=== PATIENT | male | born 1955 | race Caucasian/White ===

== ENCOUNTER → 2017-10-25 15:40 | Outpatient (CLI) | payer BC, SELFPAY ==
[2017-10-23 13:27] LABS: BUN 39 mg/dL (7-18); Creatinine, Serum 1.03 mg/dL (0.70-1.30); EST Glomerular Filtration Rate 78 mL/min (>60); Est Glom Filt Rate - Afr Amer 95 mL/min (>60)
--- NOTE | 2017-10-25 15:42 | CT_ITS ---
STUDY: CT TEMPORAL BONES WITH CONTRAST - ATTN: I.A.C. S REASON FOR EXAM: Male, 61 years old. [facility] NEUROPATHY BLURRY VISION LEFT EYE RADIATION DOSAGE (If Supplied By Facility): CTDIvol = ( 29.38 ) mGy, DLP = ( 661.50 ) mGycm TECHNIQUE: The patient was scanned in a multi detector CT scanner. Transaxial imaging was performed with the administration of 100CC ml of Isovue 250 intravenous contrast material. Sagittal and coronal images were reconstructed. Individualized dose optimization techniques were used for this CT. COMPARISON: None. FINDINGS: RIGHT TEMPORAL BONE Normal right internal auditory canal. There is no demonstrated enhancing abnormality. There is mild maxillary sinus disease. There is mild ethmoid sinus disease. Normal visualized ossicles and tympanic cavity. Normal right cochlea and semicircular canals. Normal vestibular aqueduct . Normal right petrous carotid artery. Normal right jugular fossa. Normal right mastoid air cells. Normal right petrous apex. LEFT TEMPORAL BONE Normal left internal auditory canal. There is no demonstrated enhancing abnormality. Normal visualized ossicles and tympanic cavity. Normal left cochlea and semicircular canals. Normal vestibular aqueduct. Normal left petrous carotid artery. Normal right jugular fossa. Normal left mastoid air cells. Normal left petrous apex. CT/Sinus/Facial Bone W/WO Contras IMPRESSION: Normal enhanced CT examination of the bilateral temporal bones (I.A.C.'s). Electronically Signed: Paco Moore MD at 18:43 EST , Service support ,
--- NOTE | 2017-10-25 15:42 | CT_ITS ---
STUDY: CT BRAIN WITHOUT CONTRAST REASON FOR EXAM: Male, 61 years old. OPTIC NEUROPATHY BLURRY VISION LEFT EYE RADIATION DOSAGE (If Supplied By Facility): CTDIvol = ( 44.99 ) mGy, DLP = ( 1535.98 ) mGycm TECHNIQUE: Transaxial CT imaging of the brain was performed without administration of intravenous contrast material. COMPARISON: 06.08.05 FINDINGS: Normal soft tissue structures. Normal calvarium. There are calcifications noted in the distal vertebral arteries. There are calcifications noted in the cavernous carotid arteries. This is consistent for atherosclerotic disease. There is mild cerebral atrophy with widening of the extra-axial spaces and ventricular dilatation. There are areas of decreased attenuation within the white matter tracts of the supratentorial brain, consistent with microvascular disease changes. Normal basal ganglia and thalami. Normal brainstem. There is mild cerebellar atrophy. There is no intracranial hemorrhage. There are no findings of an acute ischemic infarction. There is left mastoid air cell disease. There is mild maxillary sinus disease. CT/Brain/Head W/WO Contrast IMPRESSION: Chronic involutional changes of the brain. There are no acute findings. Electronically Signed: Paco Moore MD at 17:31 EST , Service support ,
== END ==
PROVIDERS: Family Provider Physician Assistant; PCP Physician Assistant; Visit Provider Ophthalmology
DX: H46.8 Other optic neuritis (principal)
CPT/HCPCS: 36415; 70470; 70488; 82565; 84520; Q9967

== ENCOUNTER 2017-12-14 09:30 | Outpatient (RCR) | payer OTHER, SELFPAY ==
--- NOTE | 2017-11-22 15:48 | HP.OTEVAL ---
Patient's Visit Information SHARON QUINONES is a 62 year old M, referred to Occupational Therapy by DR.MLYKIN Sandra, with a diagnosis of Fx Lower End L Radius, L wrist pain. Date of Evaluation: 11/22/17 Occupational Therapist: Isabella Guevara - Subjective Subjective: Pt seen for initial occupational therapy evaluation for decreased strength and ROM of L hand/wrist from fx of lower end radius after fall over cord at work. Pt had accidental fall 08/15/17 with L wrist fx. He had a cast for 2 wks then went in for surgery for ORIF plate and 5 screws to fix lower end L radius middle august. Pt is now out of his brace and needs to gain strength and ROM of L wrist/hand. Pt is R hand dominent. He is indep w/ all basic ADLs/IADLs. He requires a lot of bilateral hand use for his job. 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 - ROM Wrist: R 50/112, L 40/119 ROM Comments: able to make composite fist, and complete opposition L wrist/hand - Strength Pediatric Sports Medicine Specialist: R 35#, L 20# Tripod Pinch: R 6#, L 2# Strength Comments: Pt demo decreased L hand box printing machine operator/pinch strength. - Edema Other: Edema noted L wrist, moderate swelling. - Sensation Sensation Comments: Tingling in L thumb and 2nd digit. - DASH-Disabilities of Arm, Shoulder& Hand DASH Sum: 65 - Goals Goal:: Pt will progress w/ L hand box printing machine operator strength by 10# to increase functional use of L hand and open all containers without difficulty. Goal:: Pt will progress w/ L wrist flexion by 5' and extension by 5' to increase functional use of L wrist for BADLs/IADLs. Goal:: Pt will demo no pain greater than 1/10 of L wrist/hand by d/c from OT Goal:: Pt will be educated on L hand/wrist HEP with good understanding and demo 100%x. Goal:: Pt will be educated on scar mngmt techniques with good understanding and demo 100%x. - Rehabilitation General Assessment: Pt demo decreased L hand/wrist ROM and box printing machine operator strength with tingling of L thumb, 2nd digit and moderate edema L wrist all indicating a need for occupational therapy services to increase pts L hand/wrist strength and ROM and educate on HEP and scar mngmt techniques to increase pts quality of life and prepare for return back to work. Rehabilitation Potential: Excellent - Anticipated Interventions Anticipated Interventions: A/AAROM/PROM, Strengthening, Scar Care, Massage, Modalities, Joint Protection/Energy Conservation, Fine Motor Coord/Daniel, Education re Skin Care and Precautions, Education re Self Massage Techniques, Home Program - Visit Plan Frequency: 3x /Week Duration: 4 Weeks General Plan: increase ROM L wrist, increase L wrist/hand strength, educate on L UE HEP and scar mgnmt techniques TEXT: Thank you for the opportunity to evaluate your patient. For Medicare and Medicare HMO plans, please review the plan of care and approve it. It will need to be FAXED BACK to us at [phone] for Medicare purposes. Please let me know if there are questions or concerns regarding this plan of care. Physician Signature: Date:
--- NOTE | 2017-12-17 09:47 | HP.OTDCSUM_ITS ---
HP - OT D/C Summary It has been my pleasure to treat SHARON QUINONES under orders from Will Peguero, for the diagnosis of Fx Lower End L Radius, L wrist pain for a total of 11 visit(s). Please see the following information for a summary of their discharge status. - Overall Improvement % Improvement: 95 - Objective Objective/Function: left radial deviation 20 ulnar deviation 15. left wrist 60/ 45. left surface plate inspector 40#. left lat. pinch 10#. left tripod pinch 6# - Goals Patient Goals: Regain Strength, Return to Work, Decrease Swelling/Stiffness, Improve Fine Motor Skills, Use Hand/Wrist/Arm Normally Again, Decrease Tingling/ Numbness, Increase ROM, Resume Hobbies Goal:: Pt will progress w/ L hand surface plate inspector strength by 10# to increase functional use of L hand and open all containers without difficulty. Goal:: Pt will progress w/ L wrist flexion by 5' and extension by 5' to increase functional use of L wrist for BADLs/IADLs. Goal:: Pt will demo no pain greater than 1/10 of L wrist/hand by d/c from OT Goal:: Pt will be educated on L hand/wrist HEP with good understanding and demo 100%x. Goal:: Pt will be educated on scar mngmt techniques with good understanding and demo 100%x. - Plan Plan: D/C - D/C Information Discharge Comments: pt was seen for 11 OT visits- pt states he has gained ind. with all BADLS and IADLS- pt feels he is ready to return to work- pt demo a increase in ROM and strength and has met goals in OT and is D/C at this time If there are questions or concerns regarding this patient's occupational therapy , please fell free to call me at [phone]. Thank you for the referral of this patient. Sincerely, Florencia Camarena, OTR/L, CHT
== END 2017-12-14 19:00 | disposition home or self-care (01) ==
LOC: OT 09:30
PROVIDERS: Family Provider Physician Assistant; PCP Physician Assistant; Visit Provider Orthopaedic Surgery
DX: S52.572D Other intraarticular fracture of lower end of left radius, subsequent encounter for closed fracture with routine healing (principal); M25.532 Pain in left wrist
CPT/HCPCS: 97110; 97165; 97168; 97530

== ENCOUNTER → 2018-01-15 14:48 | Outpatient (CLI) | payer BC, SELFPAY ==
--- NOTE | 2018-01-15 14:50 | VDLE_ITS ---
Reason For Study: pain RIGHT LEFT GSV is normal. GSV is normal. CFV is compressible, spontaneous, phasic, CFV is compressible, spontaneous, phasic, competent and demonstrates normal competent, and demonstrates normal augmentation. augmentation. FV is compressible, spontaneous, phasic, FV is compressible, spontaneous, phasic, competent and demonstrates normal competent and demonstrates normal augmentation. augmentation. POP V is compressible, spontaneous, phasic, POP V is compressible, spontaneous, phasic, competent and demonstrates normal competent and demonstrates normal augmentation. augmentation. T/P Trunk is compressible. T/P Trunk is compressible. PTV is compressible. PTV is compressible. RT PerV is compressible. LT PerV is compressible. Procedure Exam performed in department. The exam was diagnostic. A preliminary report was called and/or faxed to [facility]. Interpretation Summary Deep veins of the lower extremities are bilaterally patent and compressible segmentally. There is no evidence of deep vein thrombosis on either side. Valvular competence appears intact within the proximal deep venous systems bilaterally. The greater saphenous veins appear bilaterally patent and compressible segmentally. Ordering Physician: Florencia Brian Performed By: Solitario Pagan RVT
== END ==
PROVIDERS: Family Provider Physician Assistant; PCP Physician Assistant; Visit Provider Physician Assistant Medical
DX: R60.0 Localized edema (principal); M79.605 Pain in left leg; M79.604 Pain in right leg
CPT/HCPCS: 93970

== ENCOUNTER → 2018-02-04 10:15 | Outpatient (CLI) | payer BC, SELFPAY ==
--- NOTE | 2018-02-04 10:15 | DT_ITS ---
This patient was seen during an EMR downtime January 28, 2018 - February 04, 2018. This patient may have a combination of paper and electronic documentation or all paper documentation. All documentation is viewable within the e-chart portion of [facility] for each patient visit.
[2018-02-04 11:11] LABS: Anion Gap 4 (5-15); BUN 45 mg/dL (7-18); BUN/Creat Ratio 35.2 RATIO (10-20); Calcium,Total 8.3 mg/dL (8.5-10.1); Chloride 104 mmol/L (98-107); Creatinine, Serum 1.28 mg/dL (0.70-1.30); EST Glomerular Filtration Rate 61 mL/min (>60); Est Glom Filt Rate - Afr Amer 74 mL/min (>60); Glucose 118 mg/dL (74-106); Potassium 4.9 mmol/L (3.5-5.1); Sodium Level 138 mmol/L (136-145)
== END ==
PROVIDERS: Internal Medicine Cardiovascular Disease; Family Provider Physician Assistant; PCP Physician Assistant; Visit Provider Physician Assistant Medical
DX: I21.4 Non-ST elevation (NSTEMI) myocardial infarction (principal); I25.10 Atherosclerotic heart disease of native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 angina pectoris; I42.9 Cardiomyopathy, unspecified; Z95.1 Presence of aortocoronary bypass graft; I11.0 Hypertensive heart disease with heart failure; I50.9 Heart failure, unspecified
CPT/HCPCS: 36415; 80048

== ENCOUNTER → 2018-04-27 09:19 | Outpatient (CLI) | payer BC, SELFPAY ==
[2018-04-27 10:28] LABS: Anion Gap 8 (5-15); BUN 73 mg/dL (7-18); BUN/Creat Ratio 48.3 RATIO (10-20); Calcium,Total 8.4 mg/dL (8.5-10.1); Chloride 108 mmol/L (98-107); Creatinine, Serum 1.51 mg/dL (0.70-1.30); EST Glomerular Filtration Rate 50 mL/min (>60); Est Glom Filt Rate - Afr Amer 61 mL/min (>60); Glucose 98 mg/dL (74-106); Potassium 4.8 mmol/L (3.5-5.1); Sodium Level 140 mmol/L (136-145)
== END ==
PROVIDERS: Family Provider Physician Assistant; PCP Physician Assistant; Visit Provider Internal Medicine Cardiovascular Disease
DX: I42.9 Cardiomyopathy, unspecified (principal); I50.9 Heart failure, unspecified
CPT/HCPCS: 36415; 80048

== ENCOUNTER → 2018-05-27 15:57 | Outpatient (CLI) | payer BC, SELFPAY ==
[2018-05-27 17:11] LABS: Absolute Lymphocyte Count 0.89 X10^3/ul (0.83-4.51); Absolute Neutrophil Count 3.8 X10^3/uL (2.0-7.7); Basophil# 0.03 X10^3/uL; Basophil% 0.5 % (0-1); Eosinophil# 0.16 X10^3/uL; Eosinophils% 2.9 % (0-5); Hemoglobin 11.4 g/dl (13.0-16.5); Lymphocyte # 0.89 X10^3/ul (4.0); Lymphocyte % 16.2 % (19-41); Mean Corp Hgb Conc 31.7 g/gl (32-36); Mean Corpuscular Hgb 27.9 pg (27.0-32.0); Mean Corpuscular Volume 88.2 fL (80-94); Mean Platelet Vol. 9.6 fl (6.2-12.0); Monocyte# 0.62 X10^3/uL; Monocyte% 11.3 % (0-10); Neutrophil # 3.79 X10^3/uL (2.7-7.7); Neutrophil % 69.1 % (47-70); Platelet Count 241 K/mm3 (150-450); RBC Distribution Width CV 14.2 % (11.6-14.6); RBC Distribution Width SD 46.1 fl (35.1-43.9); Red Blood Count 4.08 M/mm3 (4.6-6.2); White Blood Count 5.5 K/mm3 (4.4-11.0)
[2018-05-27 17:14] LABS: POSITIVE COUNT NO; POSITIVE DIFFERENTIAL NO; POSITIVE MORPHOLOGY NO
[2018-05-27 17:49] LABS: Anion Gap 9 (5-15); BUN 73 mg/dL (7-18); BUN/Creat Ratio 49.3 RATIO (10-20); Calcium,Total 8.7 mg/dL (8.5-10.1); Chloride 104 mmol/L (98-107); Creatinine, Serum 1.48 mg/dL (0.70-1.30); EST Glomerular Filtration Rate 51 mL/min (>60); Est Glom Filt Rate - Afr Amer 62 mL/min (>60); Glucose 140 mg/dL (74-106); Magnesium 2.5 mg/dL (1.6-2.6); Potassium 4.9 mmol/L (3.5-5.1); Sodium Level 140 mmol/L (136-145)
[2018-05-27 18:04] LABS: BNP,B-Type NATRIURETIC PEPTIDE 1265.9 pg/mL (0-100)
== END ==
PROVIDERS: Family Provider Physician Assistant; PCP Physician Assistant; Referring Provider Physician Assistant Medical; Visit Provider Physician Assistant Medical
DX: I50.9 Heart failure, unspecified (principal); R60.9 Edema, unspecified
CPT/HCPCS: 36415; 80048; 83735; 83880; 85025

== ENCOUNTER 2018-05-29 17:00 | Emergency (ER) | payer OTHER, BC, SELFPAY ==
[2018-05-29 17:01] VITALS: BP 151/61; PULSE 58; RESP 16; TEMP 37; O2SAT 98; BMI 26.0
--- NOTE | 2018-05-29 17:50 | ED.VISSUMM ---
- ER Visit Summary Date of Service: 05/29/18 Chief Complaint: Right long finger laceration repair wound evaluation History of Present Illness: The patient is a 62 M past medical history of insulin-dependent diabetes. Patient had an injury to his right long finger 9-10 days ago. This was a workers comp injury. The laceration to the right long finger along the palmar aspect also with a subungual hematoma. He was treated at [facility] at [facility]. Nurse practitioner closed the wound. States it was doing well however the stitches are starting to come apart. He is not supposed to have those removed until next Sunday. He denies any significant fever or redness. He states the swelling is coming down. I gave him a tetanus shot when he had this initially treated. He also had an x-ray that he states was negative. Physical Examination: Well-appearing middle-age male. Vital signs are stable afebrile. HEENT exam unremarkable. Lungs clear to auscultation. Heart regular rhythm no murmur. Abdomen soft nontender. He is moving all 4 extremities. They are neurovascularly intact. His right long finger has a laceration repair of the palmar distal tip of the right long finger there is a subungual hematoma about 100% on the nail and and on the dorsum there is additional laceration repair just proximal to the nail. Currently there is no signs of infection. It is swollen. There are no red streaks or pus. There is no gross bony deformity. He has flexion-extension all digits of the right hand. Sutures are coming loose I did remove 2 of them that had completely come untied. Test Results: None Emergency Department Course and Treatment: Discharge to home. Clean, antibiotic ointment and tube gauze. Treatment Plan: Wound care. Watch for signs of infection. Follow-up to have sutures removed. Disposition: Discharge Impression: Status post right long finger laceration repaired 9 days ago with wound check This note was generated with [employer] dictation software. It may contain incorrect words, spelling, and punctuation that were not noted in review of the chart prior to signing ED Disposition - Plan for ED Patient: Chief Complaint: Wound Check Referrals: Aditya Davis PA [Primary Care Provider] -
--- NOTE | 2018-05-29 17:54 | ED.DCSUM_ITS ---
- ER Visit Summary Date of Service: 05/29/18 Chief Complaint: Right long finger laceration repair wound evaluation History of Present Illness: The patient is a 62 M past medical history of insulin-dependent diabetes. Patient had an injury to his right long finger 9-10 days ago. This was a workers comp injury. The laceration to the right long finger along the palmar aspect also with a subungual hematoma. He was treated at [facility] at [facility]. Nurse practitioner closed the wound. States it was doing well however the stitches are starting to come apart. He is not supposed to have those removed until next Sunday. He denies any significant fever or redness. He states the swelling is coming down. I gave him a tetanus shot when he had this initially treated. He also had an x- ray that he states was negative. Physical Examination: Well-appearing middle-age male. Vital signs are stable afebrile. HEENT exam unremarkable. Lungs clear to auscultation. Heart regular rhythm no murmur. Abdomen soft nontender. He is moving all 4 extremities. They are neurovascularly intact. His right long finger has a laceration repair of the palmar distal tip of the right long finger there is a subungual hematoma about 100% on the nail and and on the dorsum there is additional laceration repair just proximal to the nail. Currently there is no signs of infection. It is swollen. There are no red streaks or pus. There is no gross bony deformity. He has flexion-extension all digits of the right hand. Sutures are coming loose I did remove 2 of them that had completely come untied. Test Results: None Emergency Department Course and Treatment: Discharge to home. Clean, antibiotic ointment and tube gauze. Treatment Plan: Wound care. Watch for signs of infection. Follow-up to have sutures removed. Disposition: Discharge Impression: Status post right long finger laceration repaired 9 days ago with wound check This note was generated with [employer] dictation software. It may contain incorrect words, spelling, and punctuation that were not noted in review of the chart prior to signing ED Disposition - Plan for ED Patient: Chief Complaint: Wound Check Referrals: Aditya Davis PA [Primary Care Provider] -
--- NOTE | 2018-05-29 17:54 | ED.DEP ---
ED Disposition - Plan for ED Patient: Disposition: Home or Assisted Living Chief Complaint: Wound Check Instructions: ED Wound Check Post Op No Infec Additional Instructions: Suture removal sometime between Sunday and Sunday. Watch for any signs of infection such as pus, redness, fever or streaks. Clean daily with peroxide and water or soap and water. Dry thoroughly. Antibiotic ointment to the wound. You may leave the dressing on for 3 days if it stays dry and clean.
== END 2018-05-29 18:04 | disposition home or self-care (01) ==
PROVIDERS: Emergency Provider Emergency Medicine; Family Provider Physician Assistant; PCP Physician Assistant
DX: Z48.02 Encounter for removal of sutures (principal); E11.9 Type 2 diabetes mellitus without complications; Z79.4 Long term (current) use of insulin; I10 Essential (primary) hypertension; E78.00 Pure hypercholesterolemia, unspecified; I25.10 Atherosclerotic heart disease of native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 angina pectoris
CPT/HCPCS: 99282

== ENCOUNTER 2018-06-03 14:40 | Outpatient (RCR) | payer BC, SELFPAY ==
[2018-06-03 15:01] VITALS: BP 173/81; PULSE 53; RESP 18; TEMP 37.2; BMI 25.5
--- NOTE | 2018-06-03 16:18 | PCM.WC.HP ---
(1) Leg swelling Status: Chronic Current Visit: Yes Code(s): M79.89 - Other specified soft tissue disorders (2) Leg edema Status: Chronic Current Visit: Yes Code(s): R60.0 - Localized edema (3) Overweight (BMI 25.0-29.9) Status: Chronic Current Visit: No Code(s): E66.3 - Overweight (4) CAD (coronary artery disease) Status: Chronic Current Visit: No Qualifiers: Coronary Disease-Associated Artery/Lesion type: [place] artery Code(s): I25.10 - Atherosclerotic heart disease of [place]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 angina pectoris (5) Ankylosing spondylitis Status: Chronic Current Visit: No Code(s): M45.9 - Ankylosing spondylitis of unspecified sites in spine (6) Renal insufficiency Status: Chronic Current Visit: No Code(s): N28.9 - Disorder of kidney and ureter, unspecified (7) HTN (hypertension) Status: Chronic Current Visit: No Qualifiers: Code(s): I10 - Essential (primary) hypertension (8) Hx of CABG Status: Chronic Current Visit: No Code(s): Z95.1 - Presence of aortocoronary bypass graft Comment: CARTY to LAD, SVG to PDA, SVG to OM 04/12/2017 @ [facility]; (9) Atherosclerosis of redding coronary artery of redding heart without angina pectoris Status: Chronic Current Visit: No Code(s): I25.10 - Atherosclerotic heart disease of [place]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 angina pectoris Comment: S/P surgery with CARTY to LAD, SVG to OM system, and SVG to PDA in March 2017 at [facility]; (10) DM2 (diabetes mellitus, type 2) Status: Chronic Current Visit: No Qualifiers: Code(s): E11.9 - Type 2 diabetes mellitus without complications (11) Diabetes mellitus with neuropathy Status: Chronic Current Visit: No Qualifiers: Code(s): E11.40 - Type 2 diabetes mellitus with diabetic neuropathy, unspecified History of Present Illness Chief Complaint: Swelling and edema of the lower extremities bilaterally History of Wound: This is a 62-year-old male who presents with a recent history of swelling and edema in both lower extremities. This has been ongoing for approximately 4 weeks. In recent months, the patient has been much less active, owing to some orthopedic problems in his lower extremities, as well as a history of coronary revascularization. In February 2017, the patient suffered a myocardial infarction. In March 2017, patient underwent coronary revascularization. He has had problems with his right hip in recent months, and has begun using a cane for ambulation. As result, he has been less active than usual. He states that the swelling is at a minimum in the morning when he awakens. He sleeps on a flat mattress at night. The swelling is more pronounced in the evening. He denies a history of thrombophlebitis in the past. Past Medical History Past Medical History: Chronic Problems (Last Reviewed 01/15/18 @ 14:04 by Wong Dale) Leg swelling (Chronic) Leg edema (Chronic) Overweight (BMI 25.0-29.9) (Chronic) CAD (coronary artery disease) (Chronic) Ankylosing spondylitis (Chronic) Renal insufficiency (Chronic) HTN (hypertension) (Chronic) Hx of CABG (Chronic ~04/12/17) CARTY to LAD, SVG to PDA, SVG to OM 04/12/2017 @ [facility]; Ventricular tachyarrhythmia (Chronic) Atherosclerosis of redding coronary artery of redding heart without angina pectoris (Chronic) S/P surgery with CARTY to LAD, SVG to OM system, and SVG to PDA in March 2017 at [facility]; DM2 (diabetes mellitus, type 2) (Chronic) Gout (Chronic) Diabetes mellitus with neuropathy (Chronic) Abscess of right foot (Chronic) CHF (congestive heart failure) (Chronic) NSTEMI (non-ST elevated myocardial infarction) (Chronic) Valvular heart disease (Chronic) Cardiomyopathy (Chronic) Pulmonary HTN (Chronic) Past Medical History: Patient has a history of hypertension, renal insufficiency, and ankylosing spondylitis. He also has a history of coronary artery disease and diabetes mellitus. Prior testing has revealed an ejection fraction of 45%. He also suffers from a hearing deficit. His history is negative for cerebrovascular accident, cancer, pulmonary disease, hyperlipidemia, and thyroid disease. Surgical History: arthroscopy, knee, - - knee, hip, femur surgery with retained hardware (surgeon Dr. Ryan Peguero [phone]) Allergies/Adverse Reactions: Allergies pregabalin [From Lyrica] Allergy (Verified 05/29/18 17:03) Angioedema Home Medications: Ambulatory Orders Medication Instructions Recorded Gabapentin [Neurontin] 300 mg PO BID 03/12/17 Celecoxib [Celebrex] 200 mg PO PRN PRN 06/04/17 aspirin 81 mg tablet,delayed 81 mg PO BID #180 tab 08/23/17 release furosemide 40 mg tablet 40 mg PO QDAY 01/11/18 carvedilol 25 mg tablet 25 mg PO BID #180 tab 05/14/18 Doxazosin Mesylate [Cardura] 8 mg PO BID 06/03/18 Hydralazine HCl 25 mg PO TID 06/03/18 Hydrocodone Bitart/Apap 5-325 1 tablet PO Q4H PRN PRN 06/03/18 [[place] 5MG-325MG] Insulin Detemir [Levemir] 17 unit SQ DINNER 06/03/18 Latanoprost 0.005% [Xalatan 1 drop EACH EYE QHS 06/03/18 Opthalmic] Lisinopril [Zestril] 40 mg PO DAILY 06/03/18 Metolazone [Zaroxolyn] 5 mg PO UD 06/03/18 Multivits,Ca,Min/Iron/FA/Lycop 2 each PO DAILY 06/03/18 [Centrum Men's Tablet] Pravastatin Sodium 80 mg PO DAILY 06/03/18 Tadalafil [Cialis] 20 mg PO PRN PRN 06/03/18 - Family History Maternal Family History: Family History (Last Reviewed 05/27/18 @ 15:10 by Camilla Maldonado) Father CAD (coronary artery disease) Mother CAD (coronary artery disease) Heart Disease Social History: 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 Lives: Spouse/ Significant Other Smoking Status: Never smoker Tobacco Use: Non-smoker Alcohol: None Drugs: None Review of Systems Constitutional: Denies: Chills, Fever, Weight Change Eyes: Denies: Pain, Vision Change HEENT: Denies: Difficulty Hearing, Difficulty Swallowing, Sinus Congestion Cardiovascular: Denies: Chest Pain, Palpitations Respiratory: Denies: Cough, Shortness of Breath Gastrointestinal: Denies: Diarrhea, Nausea, Vomiting Genitourinary: Denies: Dysuria, Hematuria Endocrine: Denies: Heat/ Cold Intolerance, Polydipsia, Polyuria Hematologic/ Lymphatic: Denies: Easy Bruising, Easy Bleeding - Physical Exam Vital Signs Temp Pulse Resp BP 98.9 F 53 L 18 173/81 H 06/03/18 15:01 06/03/18 15:01 06/03/18 15:01 06/03/18 15:01 General: Alert, Oriented x3, Cooperative, No apparent distress, Well developed, Well nourished HEENT: Atraumatic, PERRLA, EOMI, Normocephalic Oral: Moist Mucosa, No Gingival or Mucosal Lesions/ Ulcerations Neck: No JVD, Negative Carotid Bruits, Negative Hepatojugular Reflux, No Nodes, No Nuchal Rigidity, Trachea Midline Lungs: Clear to auscultation, Normal air movement, No rhonchi, No wheeze, No rales Cardiovascular: Regular rate, Regular Rhythm, Normal S1, Normal S2, No murmurs, No Ectopic Activity Abdomen: Soft, Non Tender, Non-Distended Extremities: No clubbing, No cyanosis, No Calf Tenderness, - - Mild bilateral lower extremity swelling and edema is noted in the lower extremities. There are no open wounds or ulcerations. Lower extremities are warm and well perfused. Normal hair growth is noted. Circumference measurements have been documented elsewhere. Wound Measurements and Assessment WC - Nurse 1 - General Ulcer Measurement Start: 06/03/18 15:00 Freq: Status: Active Protocol: Activity Type Activity Date Activity User E-Sign Co-Sign Detail Recorded Client Recorded Date Recorded By Document 06/03/18 15:01 [id number] 06/03/18 15:18 06/03/18 15:01 Wound Center Nurse 1 [Edema Assessment] -Lower Limb Edema Present Yes -Right Calf (cm) 39.4 -Right Ankle (cm) 24.3 -Left Calf (cm) 38 -Left Ankle (cm) 25 - Nurse 2 - General Ulcer CM Notes Start: 06/03/18 15:00 Freq: Status: Active Protocol: Activity Type Activity Date Activity User E-Sign Co-Sign Detail Recorded Client Recorded Date Recorded By Document 06/03/18 15:59 JS [id number] 06/03/18 16:01 JS 06/03/18 15:59 Pain Scale: 0-10 Numeric [Pain] -Is Patient Pain Free? Yes Musculoskeletal: No Muscle Wasting Neurological: Cranial nerves II-XII grossly intact, Neuro grossly intact Psych/Mental Status: Normal Affect, Appropriate, Alert and oriented to time, place, person, mood and affect Debridement Note Post-Debridement Measurements/Treatment WC - Nurse 2 - General Ulcer CM Notes Start: 06/03/18 15:00 Freq: Status: Active Protocol: Activity Type Activity Date Activity User E-Sign Co-Sign Detail Recorded Client Recorded Date Recorded By Document 06/03/18 15:59 ALVIN [id number] 06/03/18 16:01 ALVIN 06/03/18 15:59 Pain Scale: 0-10 Numeric Is Patient Pain Free? Yes No debridement was completed today Assessment/Plan Active Problems (Last Reviewed 01/15/18 @ 14:04 by Wong Dale) Leg swelling (Chronic) Leg edema (Chronic) Assessment: This is a 62-year-old male who presents with a 4-week history of swelling and edema in his lower extremities. It appears that this is likely related to decreasing activity and lower extremity dependency. His other medical problems have been documented above. Evaluation reveals no evidence of wounds or ulcerations in his lower extremities. The patient has undergone recent laboratory studies, with results as follows: White blood count 5.5, hemoglobin 11.4, hematocrit 36.0, platelets 241,000, sodium 140, potassium 4.9, chloride 104, BUN 9, creatinine 73, glucose 140. Plan: We are to implement conservative treatment measures initially with respect to the patient's lower extremity swelling and edema. The patient has been advised to elevate his lower extremities as much as possible. He currently sleeps on a flat mattress at night. This is to be continued. He is to elevate his lower extremities to heart level, or higher, even during daytime hours. This is to be accomplished as much as possible. He has been encouraged to be as active as possible. Prolonged idle sitting has been discouraged. The patient has been encouraged to keep his weight within normal range. Compression is to be considered, but we will first obtain a venous and arterial study of the lower extremities, to assess the status of veins and arteries in the lower extremities. Assuming no evidence of significant arterial occlusive disease, we will initiate compression to the lower extremities by means of wraps initially, followed by long-term management using graduated compression stockings or CircAid garments. Patient has been advised to optimize his glycemic control, and collaboration with his primary care physician. The patient is return in 1 week for reassessment. The patient is not a smoker. Influenza vaccine was not administered today. The patient weighs 178 pounds. He stands 5 feet 10 inches tall. His BMI is 25.5, which places him in an overweight category. Weight loss has been recommended, and collaboration with his primary care physician has been advised.
--- NOTE | 2018-06-03 16:23 | HP.PCM_ITS ---
(1) Leg swelling Status: Chronic Current Visit: Yes Code(s): M79.89 - Other specified soft tissue disorders (2) Leg edema Status: Chronic Current Visit: Yes Code(s): R60.0 - Localized edema (3) Overweight (BMI 25.0-29.9) Status: Chronic Current Visit: No Code(s): E66.3 - Overweight (4) CAD (coronary artery disease) Status: Chronic Current Visit: No Qualifiers: Coronary Disease-Associated Artery/Lesion type: [place] artery Code(s): I25.10 - Atherosclerotic heart disease of [place]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 angina pectoris (5) Ankylosing spondylitis Status: Chronic Current Visit: No Code(s): M45.9 - Ankylosing spondylitis of unspecified sites in spine (6) Renal insufficiency Status: Chronic Current Visit: No Code(s): N28.9 - Disorder of kidney and ureter, unspecified (7) HTN (hypertension) Status: Chronic Current Visit: No Qualifiers: Code(s): I10 - Essential (primary) hypertension (8) Hx of CABG Status: Chronic Current Visit: No Code(s): Z95.1 - Presence of aortocoronary bypass graft Comment: CARTY to LAD, SVG to PDA, SVG to OM 04/12/2017 @ [facility]; (9) Atherosclerosis of [place] coronary artery of [place] heart without angina pectoris Status: Chronic Current Visit: No Code(s): I25.10 - Atherosclerotic heart disease of [place]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 angina pectoris Comment: S/P surgery with CARTY to LAD, SVG to OM system, and SVG to PDA in March 2017 at [facility]; (10) DM2 (diabetes mellitus, type 2) Status: Chronic Current Visit: No Qualifiers: Code(s): E11.9 - Type 2 diabetes mellitus without complications (11) Diabetes mellitus with neuropathy Status: Chronic Current Visit: No Qualifiers: Code(s): E11.40 - Type 2 diabetes mellitus with diabetic neuropathy, unspecified History of Present Illness Chief Complaint: Swelling and edema of the lower extremities bilaterally History of Wound: This is a 62-year-old male who presents with a recent history of swelling and edema in both lower extremities. This has been ongoing for approximately 4 weeks. In recent months, the patient has been much less active, owing to some orthopedic problems in his lower extremities, as well as a history of coronary revascularization. In February 2017, the patient suffered a myocardial infarction. In March 2017, patient underwent coronary revascularization. He has had problems with his right hip in recent months, and has begun using a cane for ambulation. As result, he has been less active than usual. He states that the swelling is at a minimum in the morning when he awakens. He sleeps on a flat mattress at night. The swelling is more pronounced in the evening. He denies a history of thrombophlebitis in the past. Past Medical History Past Medical History: Chronic Problems (Last Reviewed 01/15/18 @ 14:04 by Wong Dale) Leg swelling (Chronic) Leg edema (Chronic) Overweight (BMI 25.0-29.9) (Chronic) CAD (coronary artery disease) (Chronic) Ankylosing spondylitis (Chronic) Renal insufficiency (Chronic) HTN (hypertension) (Chronic) Hx of CABG (Chronic ~04/12/17) CARTY to LAD, SVG to PDA, SVG to OM 04/12/2017 @ [facility]; Ventricular tachyarrhythmia (Chronic) Atherosclerosis of [place] coronary artery of [place] heart without angina pectoris (Chronic) S/P surgery with CARTY to LAD, SVG to OM system, and SVG to PDA in March 2017 at [facility]; DM2 (diabetes mellitus, type 2) (Chronic) Gout (Chronic) Diabetes mellitus with neuropathy (Chronic) Abscess of right foot (Chronic) CHF (congestive heart failure) (Chronic) NSTEMI (non-ST elevated myocardial infarction) (Chronic) Valvular heart disease (Chronic) Cardiomyopathy (Chronic) Pulmonary HTN (Chronic) Past Medical History: Patient has a history of hypertension, renal insufficiency, and ankylosing spondylitis. He also has a history of coronary artery disease and diabetes mellitus. Prior testing has revealed an ejection fraction of 45%. He also suffers from a hearing deficit. His history is negative for cerebrovascular accident, cancer, pulmonary disease, hyperlipidemia, and thyroid disease. Surgical History: arthroscopy, knee, - - knee, hip, femur surgery with retained hardware (surgeon Dr. Ryan Peguero [phone]) Allergies/Adverse Reactions: Allergies pregabalin [From Lyrica] Allergy (Verified 05/29/18 17:03) Angioedema Home Medications: Ambulatory Orders Medication Instructions Recorded Gabapentin [Neurontin] 300 mg PO BID 03/12/17 Celecoxib [Celebrex] 200 mg PO PRN PRN 06/04/17 aspirin 81 mg tablet,delayed 81 mg PO BID #180 tab 08/23/17 release furosemide 40 mg tablet 40 mg PO QDAY 01/11/18 carvedilol 25 mg tablet 25 mg PO BID #180 tab 05/14/18 Doxazosin Mesylate [Cardura] 8 mg PO BID 06/03/18 Hydralazine HCl 25 mg PO TID 06/03/18 Hydrocodone Bitart/Apap 5-325 1 tablet PO Q4H PRN PRN 06/03/18 [[place] 5MG-325MG] Insulin Detemir [Levemir] 17 unit SQ DINNER 06/03/18 Latanoprost 0.005% [Xalatan 1 drop EACH EYE QHS 06/03/18 Opthalmic] Lisinopril [Zestril] 40 mg PO DAILY 06/03/18 Metolazone [Zaroxolyn] 5 mg PO UD 06/03/18 Multivits,Ca,Min/Iron/FA/Lycop 2 each PO DAILY 06/03/18 [Centrum Men's Tablet] Pravastatin Sodium 80 mg PO DAILY 06/03/18 Tadalafil [Cialis] 20 mg PO PRN PRN 06/03/18 - Family History Maternal Family History: Family History (Last Reviewed 05/27/18 @ 15:10 by Camilla Maldonado) Father CAD (coronary artery disease) Mother CAD (coronary artery disease) Heart Disease Social History: 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 Lives: Spouse/ Significant Other Smoking Status: Never smoker Tobacco Use: Non-smoker Alcohol: None Drugs: None Review of Systems Constitutional: Denies: Chills, Fever, Weight Change Eyes: Denies: Pain, Vision Change HEENT: Denies: Difficulty Hearing, Difficulty Swallowing, Sinus Congestion Cardiovascular: Denies: Chest Pain, Palpitations Respiratory: Denies: Cough, Shortness of Breath Gastrointestinal: Denies: Diarrhea, Nausea, Vomiting Genitourinary: Denies: Dysuria, Hematuria Endocrine: Denies: Heat/ Cold Intolerance, Polydipsia, Polyuria Hematologic/ Lymphatic: Denies: Easy Bruising, Easy Bleeding - Physical Exam Vital Signs Temp Pulse Resp BP 98.9 F 53 L 18 173/81 H 06/03/18 15:01 06/03/18 15:01 06/03/18 15:01 06/03/18 15:01 General: Alert, Oriented x3, Cooperative, No apparent distress, Well developed, Well nourished HEENT: Atraumatic, PERRLA, EOMI, Normocephalic Oral: Moist Mucosa, No Gingival or Mucosal Lesions/ Ulcerations Neck: No JVD, Negative Carotid Bruits, Negative Hepatojugular Reflux, No Nodes, No Nuchal Rigidity, Trachea Midline Lungs: Clear to auscultation, Normal air movement, No rhonchi, No wheeze, No rales Cardiovascular: Regular rate, Regular Rhythm, Normal S1, Normal S2, No murmurs, No Ectopic Activity Abdomen: Soft, Non Tender, Non-Distended Extremities: No clubbing, No cyanosis, No Calf Tenderness, - - Mild bilateral lower extremity swelling and edema is noted in the lower extremities. There are no open wounds or ulcerations. Lower extremities are warm and well perfused. Normal hair growth is noted. Circumference measurements have been documented elsewhere. Wound Measurements and Assessment WC - Nurse 1 - General Ulcer Measurement Start: 06/03/18 15:00 Freq: Status: Active Protocol: Activity Type Activity Date Activity User E-Sign Co-Sign Detail Recorded Client Recorded Date Recorded By Document 06/03/18 15:01 [id number] 06/03/18 15:18 06/03/18 15:01 Wound Center Nurse 1 [Edema Assessment] -Lower Limb Edema Present Yes -Right Calf (cm) 39.4 -Right Ankle (cm) 24.3 -Left Calf (cm) 38 -Left Ankle (cm) 25 - Nurse 2 - General Ulcer CM Notes Start: 06/03/18 15:00 Freq: Status: Active Protocol: Activity Type Activity Date Activity User E-Sign Co-Sign Detail Recorded Client Recorded Date Recorded By Document 06/03/18 15:59 JS [id number] 06/03/18 16:01 JS 06/03/18 15:59 Pain Scale: 0-10 Numeric [Pain] -Is Patient Pain Free? Yes Musculoskeletal: No Muscle Wasting Neurological: Cranial nerves II-XII grossly intact, Neuro grossly intact Psych/Mental Status: Normal Affect, Appropriate, Alert and oriented to time, place, person, mood and affect Debridement Note Post-Debridement Measurements/Treatment WC - Nurse 2 - General Ulcer CM Notes Start: 06/03/18 15:00 Freq: Status: Active Protocol: Activity Type Activity Date Activity User E-Sign Co-Sign Detail Recorded Client Recorded Date Recorded By Document 06/03/18 15:59 ALVIN [id number] 06/03/18 16:01 ALVIN 06/03/18 15:59 Pain Scale: 0-10 Numeric Is Patient Pain Free? Yes No debridement was completed today Assessment/Plan Active Problems (Last Reviewed 01/15/18 @ 14:04 by Wong Dale) Leg swelling (Chronic) Leg edema (Chronic) Assessment: This is a 62-year-old male who presents with a 4-week history of swelling and edema in his lower extremities. It appears that this is likely related to decreasing activity and lower extremity dependency. His other medical problems have been documented above. Evaluation reveals no evidence of wounds or ulcerations in his lower extremities. The patient has undergone recent laboratory studies, with results as follows: White blood count 5.5, hemoglobin 11.4, hematocrit 36.0, platelets 241,000, sodium 140, potassium 4.9, chloride 104, BUN 9, creatinine 73, glucose 140. Plan: We are to implement conservative treatment measures initially with respect to the patient's lower extremity swelling and edema. The patient has been advised to elevate his lower extremities as much as possible. He currently sleeps on a flat mattress at night. This is to be continued. He is to elevate his lower extremities to heart level, or higher, even during daytime hours. This is to be accomplished as much as possible. He has been encouraged to be as active as possible. Prolonged idle sitting has been discouraged. The patient has been encouraged to keep his weight within normal range. Compression is to be considered, but we will first obtain a venous and arterial study of the lower extremities, to assess the status of veins and arteries in the lower extremities. Assuming no evidence of significant arterial occlusive disease, we will initiate compression to the lower extremities by means of wraps initially, followed by long-term management using graduated compression stockings or CircAid garments. Patient has been advised to optimize his glycemic control, and collaboration with his primary care physician. The patient is return in 1 week for reassessment. The patient is not a smoker. Influenza vaccine was not administered today. The patient weighs 178 pounds. He stands 5 feet 10 inches tall. His BMI is 25.5, which places him in an overweight category. Weight loss has been recommended, and collaboration with his primary care physician has efrem brandt advised.
--- NOTE | 2018-06-04 12:35 | WC ---
Call made to patient's regarding appointment for non-invasive vascular studies. Appointment set-up for 9A06/11 with Wound Center appointment rescheduled to right after studies. will check with if this appointment can be kept. Given central scheduling phone number if not able. Instructed to notify the Wound Center if vascular studies need rescheduled: No need to see patient until vascular studies are done. Testing is paramount to developing treatment plan.
== END 2018-06-26 23:59 ==
LOC: WC 14:40
PROVIDERS: Family Provider Physician Assistant; PCP Physician Assistant; Visit Provider Surgery
DX: Z09 Encounter for follow-up examination after completed treatment for conditions other than malignant neoplasm (principal); M79.89 Other specified soft tissue disorders; R60.0 Localized edema; I25.10 Atherosclerotic heart disease of native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 angina pectoris; M45.9 Ankylosing spondylitis of unspecified sites in spine; Z95.1 Presence of aortocoronary bypass graft; E11.22 Type 2 diabetes mellitus with diabetic chronic kidney disease; E11.42 Type 2 diabetes mellitus with diabetic polyneuropathy; N18.9 Chronic kidney disease, unspecified; I13.0 Hypertensive heart and chronic kidney disease with heart failure and stage 1 through stage 4 chronic kidney disease, or unspecified chronic kidney disease; I50.9 Heart failure, unspecified; I25.2 Old myocardial infarction; Z79.4 Long term (current) use of insulin; Z79.899 Other long term (current) drug therapy
CPT/HCPCS: 99213; G0463

== ENCOUNTER 2018-06-29 18:54 | Emergency (ER) | payer BC, SELFPAY ==
[2018-06-29 18:55] VITALS: BP 188/93; PULSE 60; RESP 20; TEMP 37; O2SAT 94; BMI 27.2
--- NOTE | 2018-06-29 19:24 | RAD_ITS ---
STUDY: X-RAY CHEST REASON FOR EXAM: Male, 62 years old. Bilateral leg edema for 3 weeks. TECHNIQUE: Single frontal view of the chest. COMPARISON: March 12, 2017 FINDINGS: The lungs are hyperexpanded. The patchy opacities at both bases on the prior study have decreased in density. There are still patchy opacities in the lower lobes. There is a right pleural effusion/pleural thickening. There is stable marked cardiomegaly with sternotomy wires. Normal mediastinum and sofi. Normal visualized pulmonary arteries. There is atherosclerotic calcification of the aortic arch with tortuosity. Normal visualized thoracic spine. Normal visualized ribs, clavicles, and shoulders. There is no demonstrated abnormality of the visualized soft tissue structures of the upper abdomen. RAD/Chest 1 View (Portable) IMPRESSION: Cardiomegaly with a mild diffuse bilateral lower lobe interstitial pattern. No acute pathology. Electronically Signed: Cade Denson MD at 20:14 EDT , Service support ,
--- NOTE | 2018-06-29 19:24 | EKG12_ITS ---
Test Reason : EDEMA Blood Pressure : / mmHG Vent. Rate : 053 BPM Atrial Rate : 053 BPM P-R Int : 234 ms QRS Dur : 116 ms QT Int : 488 ms P-R-T Axes : 061 012 054 degrees QTc Int : 457 ms Sinus bradycardia with 1st degree A-V block Incomplete right bundle branch block Possible Inferior infarct , age undetermined Possible Anterior infarct , age undetermined Abnormal ECG Confirmed by GERSON RASMUSSEN, ABDI ([id number]), editor city [place] GTZ ([id number] on 07/01/2018 3:43:01 PM Referred By: LATOYA Confirmed By:ABDI NIETO MD
[2018-06-29 19:44] LABS: Absolute Lymphocyte Count 0.58 X10^3/ul (0.83-4.51); Absolute Neutrophil Count 3.1 X10^3/uL (2.0-7.7); Basophil# 0.02 X10^3/uL; Basophil% 0.5 % (0-1); Eosinophil# 0.15 X10^3/uL; Eosinophils% 3.5 % (0-5); Hematocrit 32.1 % (40-54); Hemoglobin 10.1 g/dl (13.0-16.5); Lymphocyte # 0.58 X10^3/ul (4.0); Lymphocyte % 13.4 % (19-41); Mean Corp Hgb Conc 31.5 g/gl (32-36); Mean Corpuscular Hgb 28.4 pg (27.0-32.0); Mean Corpuscular Volume 90.2 fL (80-94); Mean Platelet Vol. 8.9 fl (6.2-12.0); Monocyte# 0.48 X10^3/uL; Monocyte% 11.1 % (0-10); Neutrophil % 71.3 % (47-70); Platelet Count 232 K/mm3 (150-450); RBC Distribution Width CV 14.5 % (11.6-14.6); RBC Distribution Width SD 47.9 fl (35.1-43.9); Red Blood Count 3.56 M/mm3 (4.6-6.2); White Blood Count 4.3 K/mm3 (4.4-11.0)
[2018-06-29 19:48] LABS: Anion Gap 7 (5-15); BUN 86 mg/dL (7-18); Calcium,Total 7.9 mg/dL (8.5-10.1); Chloride 104 mmol/L (98-107); Differential Indicated SCAN CRITERIA MET; EST Glomerular Filtration Rate 36 mL/min (>60); Est Glom Filt Rate - Afr Amer 44 mL/min (>60); Estimated Creatinine Clearance 40.56 ml/min; Glucose 315 mg/dL (74-106); POSITIVE COUNT NO; POSITIVE DIFFERENTIAL YES; POSITIVE MORPHOLOGY NO; Potassium 4.9 mmol/L (3.5-5.1); Sodium Level 137 mmol/L (136-145)
[2018-06-29 20:07] LABS: Differential Comment SCANNED
[2018-06-29] MEDS: Furosemide 100 MG/10 ML Vial 60 MG IV (21:25)
--- NOTE | 2018-06-29 21:27 | ED.VISSUMM ---
- ER Visit Summary Date of Service: 06/29/18 Chief Complaint: Edema History of Present Illness: The patient is a 62 M with bilateral lower leg edema. This has been going on for a month. It has been getting worse of the last couple days. He attributes it to his history of CHF. 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 He has some mild shortness of breath, but emphasizes that it is mild. He does not have chest pain or any other symptoms with this. Physical Examination: His blood pressure is 188/93. Otherwise his vitals are unremarkable. Pulse ox 94% on room air. He is sitting and breathing comfortably. He has 3+ pitting edema from his feet up to his mid thigh, symmetric. Nontender. Neurovascular intact distally. Otherwise his heart is regular. No respiratory distress, lungs are clear. Skin appears normal. Test Results: EKG showed sinus rhythm at a rate of 53, chronic, incomplete right bundle branch block pattern and nonspecific ST and T wave changes, unchanged. White count 4.3, hemoglobin 10.1, stable. BUN 86 and creatinine 2.0, both increased from 1 month ago. Troponin normal. BNP pending. X-ray shows cardiomegaly and congestion. Emergency Department Course and Treatment: Patient was placed on the monitor. EKG, x-ray, and labs were done. He was discussed with Dr. Nunez. Patient will be treated with 1 dose of IV Lasix, 60 mg. Decrease lisinopril to 20 mg daily. Stop hydralazine. Change Lasix dose to 60 mg twice a day. The patient does have 20 mg tablets of Lasix at home. He will call the office on Sunday for follow-up. Return to the ER for any new or worsening symptoms. Treatment Plan: As above Disposition: Discharge Impression: 1. Peripheral edema This note was generated with [employer] dictation software. It may contain incorrect words, spelling, and punctuation that were not noted in review of the chart prior to signing ED Disposition - Plan for ED Patient: Chief Complaint: Edema Referrals: Aditya Davis PA [Primary Care Provider] -
--- NOTE | 2018-06-29 21:30 | ED.DCSUM_ITS ---
- ER Visit Summary Date of Service: 06/29/18 Chief Complaint: Edema History of Present Illness: The patient is a 62 M with bilateral lower leg edema. This has been going on for a month. It has been getting worse of the last couple days. He attributes it to his history of CHF. 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 He has some mild shortness of breath, but emphasizes that it is mild. He does not have chest pain or any other symptoms with this. Physical Examination: His blood pressure is 188/93. Otherwise his vitals are unremarkable. Pulse ox 94% on room air. He is sitting and breathing comforta bridger. He has 3+ pitting edema from his feet up to his mid thigh, symmetric. Nontender. Neurovascular intact distally. Otherwise his heart is regular. No respiratory distress, lungs are clear. Skin appears normal. Test Results: EKG showed sinus rhythm at a rate of 53, chronic, incomplete right bundle branch block pattern and nonspecific ST and T wave changes, unchanged. White count 4.3, hemoglobin 10.1, stable. BUN 86 and creatinine 2.0, both increased from 1 month ago. Troponin normal. BNP pending. X-ray shows cardiomegaly and congestion. Emergency Department Course and Treatment: Patient was placed on the monitor. EKG, x-ray, and labs were done. He was discussed with Dr. Nunez. Patient will be treated with 1 dose of IV Lasix, 60 mg. Decrease lisinopril to 20 mg daily. Stop hydralazine. Change Lasix dose to 60 mg twice a day. The patient does have 20 mg tablets of Lasix at home. He will call the office on Sunday for follow-up. Return to the ER for any new or worsening symptoms. Treatment Plan: As above Disposition: Discharge Impression: 1. Peripheral edema This note was generated with [employer] dictation software. It may contain incorrect words, spelling, and punctuation that were not noted in review of the chart prior to signing ED Disposition - Plan for ED Patient: Chief Complaint: Edema Referrals: Aditya Davis PA [Primary Care Provider] -
--- NOTE | 2018-06-29 21:30 | ED.DEP ---
ED Disposition - Plan for ED Patient: Chief Complaint: Edema Instructions: ED Leg Swelling Bilateral Referrals: Lee Chacon MD [STAFF PHYSICIAN] - Additional Instructions: Stop hydralazine. Decrease your lisinopril dose to 20 mg. Change your Lasix to 60 mg twice a day
[2018-06-29 21:32] VITALS: BP 187/72; PULSE 53; RESP 20; O2SAT 93
== END 2018-06-29 21:46 | disposition home or self-care (01) ==
LOC: ED 19:31
PROVIDERS: Emergency Provider Emergency Medicine; Family Provider Physician Assistant; PCP Physician Assistant
DX: R60.0 Localized edema (principal); I50.9 Heart failure, unspecified; I25.2 Old myocardial infarction; Z95.1 Presence of aortocoronary bypass graft; Z79.82 Long term (current) use of aspirin; Z79.899 Other long term (current) drug therapy
CPT/HCPCS: 71045; 80048; 83880; 84484; 85025; 93005; 96374; 99284; A4216; J1940

== ENCOUNTER 2018-07-09 08:45 | Outpatient (RCR) | payer BC, SELFPAY ==
[2018-06-27 01:56] VITALS: BP 173/81; PULSE 53; RESP 18; TEMP 37.2
--- NOTE | 2018-07-09 08:52 | VDLE_ITS ---
Reason For Study: LEG SWELLING RIGHT LEFT CFV is compressible, spontaneous, phasic, CFV is compressible, spontaneous, phasic, competent and demonstrates normal competent, and demonstrates normal augmentation. augmentation. FV is compressible, spontaneous, phasic, FV is compressible, spontaneous, phasic, competent and demonstrates normal competent and demonstrates normal augmentation. augmentation. POP V is compressible, spontaneous, phasic, POP V is compressible, spontaneous, phasic, competent and demonstrates normal competent and demonstrates normal augmentation. augmentation. T/P Trunk is compressible. T/P Trunk is compressible. PTV is compressible. PTV is compressible. RT PerV is compressible. LT PerV is compressible. SFJ is competent SFJ is INCOMPETENT greater than .5 sec GSV is competent GSV is INCOMPETENT with reflux greater SSV is competent. than .5 sec and diameter of .29 x .26 cm Procedure GSV is not visualized for segment in thigh Exam performed in department. from prox to mid thigh. A preliminary report was called and/or faxed SSV is competent. to [facility]. <> Interpretation Summary Deep veins of the lower extremities are bilaterally patent and compressible segmentally. There is no evidence of deep vein thrombosis on either side. Valvular competence appears intact within the proximal deep venous systems bilaterally. The greater saphenous veins appear bilaterally patent and compressible segmentally. The right sapheno-femoral junction is competent . The left sapheno-femoral junction is incompetent . The right greater saphenous vein appears segmentally competent. The left greater saphenous vein appears segmentally incompetent. A segment of the left greater saphenous vein from the proximal left thigh to the mid-thigh was not visualized. Small saphenous veins are patent and competent bilaterally. Ordering Physician: Vadim Ferrell Referring Physician: Vadim Ferrell Performed By: Jordana Laureano RVT
--- NOTE | 2018-07-14 21:49 | LEAS ---
Arterial Study - Arterial Study Arterial Study: This is a 62-year-old male who presents with a history of coronary artery disease, congestive heart failure, hypertension, diabetes, and renal insufficiency. Suspecting the presence of atherosclerotic peripheral arterial occlusive disease, the patient was brought to the noninvasive vascular laboratory at this time the purpose of bilateral noninvasive lower extremity arterial assessment. Doppler signal assessment was used to evaluate the pulses at ankle level bilaterally. On the right, the posterior tibial and dorsalis pedis pulses were triphasic. The left posterior tibial pulse was biphasic. The left dorsalis pedis pulse was triphasic. Segmental limb pressures were obtained bilaterally. Ankle pressures, as determined by posterior tibial and dorsalis pedis pulses, could not be determined on either side due to the noncompressibility of the vasculature. The right digital pressure was measured at 228 mmHg. The left digital?digital pressure was measured at 171 mmHg. Pulse?volume recordings were obtained bilaterally and segmentally. Waveform amplitudes appeared to be satisfactory at all levels bilaterally, including low thigh, calf, ankle, and digital levels. Resting ankle?brachial indices could not be calculated on either side due to the noncompressibility of the vasculature. Digital?brachial indices were calculated bilaterally. The right digital-brachial index was calculated to be 1.19. The left digital-brachial index was calculated to be 0.89. Impression: Based upon the findings of this resting noninvasive lower extremity arterial study, there is evidence of arterial calcification in the lower extremities bilaterally at ankle level, rendering the arterial tree noncompressible. However, triphasic waveforms are noted at ankle level bilaterally. Digital?brachial indices were also bilaterally normal. These findings suggest relatively normal arterial perfusion in the lower extremities bilaterally. Clinical correlation is advised.
--- NOTE | 2018-07-14 21:55 | LEAS_ITS ---
Arterial Study - Arterial Study Arterial Study: This is a 62-year-old male who presents with a history of coronary artery disease, congestive heart failure, hypertension, diabetes, and renal insufficiency. Suspecting the presence of atherosclerotic peripheral arterial occlusive disease, the patient was brought to the noninvasive vascular laboratory at this time the purpose of bilateral noninvasive lower extremity arterial assessment. Doppler signal assessment was used to evaluate the pulses at ankle level bilate rally. On the right, the posterior tibial and dorsalis pedis pulses were triphasic. The left posterior tibial pulse was biphasic. The left dorsalis pedis pulse was triphasic. Segmental limb pressures were obtained bilaterally. Ankle pressures, as determined by posterior tibial and dorsalis pedis pulses, could not be determined on either side due to the noncompressibility of the vasculature. The right digital pressure was measured at 228 mmHg. The left digital?digital pressure was measured at 171 mmHg. Pulse?volume recordings were obtained bilaterally and segmentally. Waveform amplitudes appeared to be satisfactory at all levels bilaterally, including low thigh, calf, ankle, and digital levels. Resting ankle?brachial indices could not be calculated on either side due to the noncompressibility of the vasculature. Digital?brachial indices were calculated bilaterally. The right digital- brachial index was calculated to be 1.19. The left digital-brachial index was calculated to be 0.89. Impression: Based upon the findings of this resting noninvasive lower extremity arterial study, there is evidence of arterial calcification in the lower extremities bilaterally at ankle level, rendering the arterial tree noncompressible. However, triphasic waveforms are noted at ankle level bilaterally. Digital?brachial indices were also bilaterally normal. These findings suggest relatively normal arterial perfusion in the lower extremities bilaterally. Clinical correlation is advised.
== END 2018-07-26 23:59 ==
LOC: CVS 08:45
PROVIDERS: Family Provider Physician Assistant; PCP Physician Assistant; Referring Provider Surgery; Visit Provider Surgery
DX: I87.2 Venous insufficiency (chronic) (peripheral) (principal); I73.9 Peripheral vascular disease, unspecified; M79.604 Pain in right leg; M79.605 Pain in left leg; R60.0 Localized edema; Z95.1 Presence of aortocoronary bypass graft
CPT/HCPCS: 93923; 93970

== ENCOUNTER → 2018-07-15 10:21 | Outpatient (CLI) | payer BC, SELFPAY ==
[2018-07-15 09:21] VITALS: BMI 25.2
[2018-07-15 13:17] LABS: Anion Gap 8 (5-15); BUN 50 mg/dL (7-18); BUN/Creat Ratio 30.7 RATIO (10-20); Calcium,Total 8.6 mg/dL (8.5-10.1); Chloride 98 mmol/L (98-107); Creatinine, Serum 1.63 mg/dL (0.70-1.30); EST Glomerular Filtration Rate 46 mL/min (>60); Est Glom Filt Rate - Afr Amer 56 mL/min (>60); Glucose 190 mg/dL (74-106); Potassium 4.3 mmol/L (3.5-5.1); Sodium Level 136 mmol/L (136-145)
== END ==
PROVIDERS: Family Provider Physician Assistant; PCP Physician Assistant; Visit Provider Physician Assistant Medical
DX: N28.9 Disorder of kidney and ureter, unspecified (principal)
CPT/HCPCS: 36415; 80048

== ENCOUNTER → 2018-09-11 15:31 | Outpatient (CLI) | payer BC, SELFPAY ==
[2018-08-02 13:22] VITALS: BMI 25.5
[2018-09-11 16:15] LABS: Color, Urine Yellow (Yellow); Glucose, Dipstick 50 mg/dl (Normal); Ketone-Dipstick Negative (Negative); Leukocyte Esterase-Dipstick Negative /ul (Negative); Nitrite-Dipstick Negative (Negative); Occult Blood-Urine 10 /ul (Negative); Protein-Dipstick 500 mg/dl (Negative); Specific Gravity, Urine 1.015 (1.002-1.030); Urine Bilirubin Dipstick Negative (Negative); Urine Clarity Clear (Clear); Urine Urobilinogen Normal (Normal)
[2018-09-11 16:16] LABS: Hematocrit 32.1 % (40-54); Hemoglobin 10.2 g/dl (13.0-16.5); Mean Corp Hgb Conc 31.8 g/gl (32-36); Mean Corpuscular Hgb 29.1 pg (27.0-32.0); Mean Corpuscular Volume 91.7 fL (80-94); Mean Platelet Vol. 9.9 fl (6.2-12.0); Platelet Count 243 K/mm3 (150-450); RBC Distribution Width CV 14.2 % (11.6-14.6); RBC Distribution Width SD 46.4 fl (35.1-43.9); White Blood Count 5.9 K/mm3 (4.4-11.0)
[2018-09-11 16:20] LABS: Scan Indicated on CBC? Y/N NO
[2018-09-11 17:01] LABS: Albumin, Serum 2.7 g/dL (3.2-5.0); BUN 57 mg/dL (7-18); BUN/Creat Ratio 36.3 RATIO (10-20); Calcium,Total 8.6 mg/dL (8.5-10.1); Chloride 104 mmol/L (98-107); Creatinine, Serum 1.57 mg/dL (0.70-1.30); EST Glomerular Filtration Rate 48 mL/min (>60); Est Glom Filt Rate - Afr Amer 58 mL/min (>60); Glucose 136 mg/dL (74-106); Potassium 5.4 mmol/L (3.5-5.1); Sodium Level 138 mmol/L (136-145)
[2018-09-11 17:03] LABS: Protein, Urine (Random) 270.4 mg/dL (<11.9); Protein:Creat Ratio 4998 mg/g CRE (0-200)
[2018-09-11 17:09] LABS: Vitamin D,25 Hydroxy 19.7 ng/mL (29.95-100.01)
[2018-09-11 17:28] LABS: PTHIN 104.7 pg/mL (18.4-80.1)
--- OUTSIDE RECORDS SUMMARY | 2018-11-16 14:53 | XMS RPT_ITS ---
:1955 Author Organization [place] Support Name Relationship Address Phone YUN QUINONES Unavailable [address] + [place] [address] [place] Unavailable [address] + [place] [address] QUINONES, YUN Unavailable [address] + [place] [address] [place] Unavailable [address] + [place] [address] QUINONES, YUN Unavailable [address] + [place] [address] [place] Unavailable [address] + [place] [address] QUINONES, YUN Unavailable [address] + [place] [address] [place] Unavailable [address] + [place] [address] QUINONES, YUN Unavailable [address] + [place] [address] [place] Unavailable [address] + [place] [address] QUINONES, YUN Unavailable [address] + [place] [address] [place] Unavailable [address] + [place] [address] QUINONES, YUN Unavailable [address] + [place] [address] [place] N[place] Unavailable [address] + [facility] [place] [address] QUINONES, YUN Unavailable [address] + [place] [address] [place] N[place] Unavailable [address] + [facility] [place] [address] QUINONES, YUN Unavailable [address] + [place] [address] [place] N[place] Unavailable [address] + [facility] [place] [address] QUINONES, YUN Unavailable [address] + [place] [address] [place] N[place] Unavailable [address] + [facility] [place] [address] QUINONES, YUN Unavailable [address] + [place] [address] [place] N[place] Unavailable [address] + [place] [address] QUINONES, YUN Unavailable [address] + [place] [address] [place] N[place] Unavailable [address] + [place] [address] QUINONES, YUN Unavailable [address] + [place] [address] [place] N[place] Unavailable [address] + [facility] [place] [address] QUINONES, YUN Unavailable [address] + [place] [address] [place] N[place] Unavailable [address] + [facility] [place] [address] QUINONES, YUN Unavailable [address] + [place] [address] [place] N[place] Unavailable [address] + [facility] [place] [address] QUINONES, YUN Unavailable [address] + [place] [address] [place] N[place] Unavailable [address] + [place] [address] QUINONES, YUN Unavailable [address] + [place] [address] [place] N[place] Unavailable [address] + [place] [address] QUINONES, YUN Unavailable [address] + [place] [address] [place] N[place] Unavailable [address] + [place] [address] QUINONES, YUN Unavailable [address] + [place] [address] [place] N[place] Unavailable [address] + [place] [address] QUINONES, YUN Unavailable [address] + [place] [address] [place] N[place] Unavailable [address] + [place] [address] QUINONES, YUN Unavailable [address] + [place] [address] [place] N[place] Unavailable [address] + [place] [address] QUINONES, YUN Unavailable [address] + [place] [address] [place] N[place] Unavailable [address] + [place] [address] QUINONES, YUN Unavailable [address] + [place] [address] [place] N[place] Unavailable [address] + [place] [address] QUINONES, YUN Unavailable [address] + [place] [address] Care Team Providers Name Role Phone FARIDA GILBERT Attending Unavailable IMCA Referring Unavailable IMCA Primary Care Unavailable LAHORRA, DANTE Gonsalez Admitting Unavailable LAHORRA, DANTE Gonsalez Attending Unavailable NO REFERRING Referring Unavailable BRIGIDA MEDELLIN Consulting Unavailable NINFA GODINEZ Consulting Unavailable ZIGGY JADE Consulting Unavailable MAURI MORATAYA Consulting Unavailable LAHORRA, DANTE Gonsalez Consulting Unavailable DANTE PHAM Surgeon Unavailable DAMION GAGNON, MS. GLORY Cuadra Attending Unavailable PHYSICIAN, NONE Primary Care Unavailable Aditya DAVIS (PA-C) Attending Unavailable Aditya DAVIS (PA-C) Attending Unavailable Aditya DAVIS (PA-C) Referring Unavailable Aditya DAVIS (PA-C) Referring Unavailable Aditya DAVIS (PA-C) Attending Unavailable Aditya DAVIS (PA-C) Referring Unavailable DAVIS, Aditya ECKERT (PA-C) Referring Unavailable Aditya DAVIS (PA-C) Referring Unavailable IVAN, BLADE J Referring Unavailable IVAN, BLADE Hendrix Attending Unavailable IVANBLADE J Referring Unavailable IVAN, BLADE J Referring Unavailable IVAN, BLADE J Referring Unavailable IVAN, BLADE J Attending Unavailable COOKIE, LAPMAN Referring Unavailable COOKIE, LAPMAN Attending Unavailable IVAN, BLADE J Referring Unavailable COOKIE, LAPMAN Referring Unavailable COOKIE, LAPMAN Referring Unavailable COOKIE, LAPMAN Referring Unavailable COOKIE, LAPMAN Referring Unavailable COOKIE, LAPMAN Referring Unavailable COOKIE, LAPMAN Referring Unavailable COOKIE, LAPMAN Referring Unavailable COOKIE, LAPMAN Attending Unavailable COOKIE, LAPMAN Referring Unavailable IVAN, BLADE J Attending Unavailable Aditya DAVIS (PA-C) Attending Unavailable Aditya DAVIS (PA-C) Attending Unavailable IVAN, BLADE J Referring Unavailable PRERNA LUZ ([employer]) Attending Unavailable PRERNA LUZ ([employer]) Referring Unavailable RUTPRERNA CUEVAS ([employer]) Referring Unavailable Bakhous, Aziz Attending Unavailable Danas, Aziz Referring Unavailable Aditya Davis Primary Care Unavailable Camden Caal Attending Unavailable Aditya Davis Primary Care Unavailable Camden Caal Referring Unavailable Nurse, Standard Attending Unavailable Aditya Davis Referring Unavailable Nurse, Emily Attending Unavailable JENSEN PEGUERO Attending Unavailable JENSEN PEGUERO Referring Unavailable Aditya Davis Primary Care Unavailable Ziggy Larkin Attending Unavailable Aditya Davis Referring Unavailable Aditya Davis Primary Care Unavailable Florencia Brian Attending Unavailable DavisAditya Referring Unavailable DavisAditya Primary Care Unavailable BrianFlorencia M Attending Unavailable BrianFlorencia M Referring Unavailable Davis M Ghassan Primary Care Unavailable BrianFlorencia M Attending Unavailable Davis, M Ghassan Primary Care Unavailable BrianFlorencia barros M Referring Unavailable Ziggy Larkin Attending Unavailable Aditya Davis Referring Unavailable Florencia Brian Attending Unavailable Aditya Davis Referring Unavailable Lee Chacon Attending Unavailable Lee Chacon Referring Unavailable Davis, Aditya Eckert Primary Care Unavailable BrianFlorencia barros Attending Unavailable DavisAditya gamino Referring Unavailable Florencia Brian Attending Unavailable Florencia Brian Referring Unavailable DavisAditya Primary Care Unavailable Davis, Aditya Eckert Primary Care Unavailable Mauri Tellez Attending Unavailable Vadim Ferrell Attending Unavailable Aditya Davis Primary Care Unavailable Vadim Ferrell Attending Unavailable Aditya Davis Primary Care Unavailable Vadim Ferrell Referring Unavailable Aditya Davis Primary Care Unavailable Ra Lange Attending Unavailable Ziggy Larkin Attending Unavailable DavisAditya Referring Unavailable Florencia Brian Attending Unavailable Aditya Davis Referring Unavailable Florencia Brian Attending Unavailable Aditya Davis Primary Care Unavailable Vadim Ferrell Attending Unavailable Vadim Ferrell Referring Unavailable Aditya Davis Primary Care Unavailable Florencia Brian Attending Unavailable Aditya Davis Referring Unavailable Jensen Peguero Attending Unavailable Monyt Davis Primary Care Unavailable Jensen Peguero Attending Unavailable Monty Davis Primary Care Unavailable Jensen Peguero Attending Unavailable Dewayne Daugherty Primary Care Unavailable SudhirJensen curiel Attending Unavailable DavisMonty Primary Care Unavailable SudhirJensen curiel Attending Unavailable Albert Daughertyg A Primary Care Unavailable Jensen Peguero Attending Unavailable Jensen Peguero Admitting Unavailable Jensen Peguero Attending Unavailable SudhirJensen curiel Attending Unavailable SudhirJensen curiel Attending Unavailable No Family Physician given Primary Care Unavailable Jensen Peguero Attending Unavailable Jensen Peguero Attending Unavailable DavisMonty gamino Primary Care Unavailable PROBLEMS PROBLEMS DATE TYPE CONDITION / CODE ATTENDING STATUS SOURCE Active Hyperkalemia / NA Active [facility] E87.5(ICD-10) Clinic Main [facility] Rep[facility] Active Essential (primary) NA Active [facility] hypertension / [facility] Main I10(ICD-10) [facility] Rep[facility] Active Other php consultant (current) NA Active [facility] drug therapy / [facility] Main Z79.899(ICD-10) [facility] Rep[facility] Active Acute kidney failure, NA Active [facility] unspecified / [facility] Main N17.9(ICD-10) [facility] Repository Unknown 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, 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 [place] [facility]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 Hospital angina pectoris / Repository I25.10(ICD-10) Unknown I10 - Essential (primary) Brian, Active [place] [facility] hypertension / [facility] I10(ICD-10) Hospital Repository Unknown I42.9 - Cardiomyopathy, Snehal, Active [place] 8 unspecified / [facility] I42.9(ICD-10) Hospital Repository Unknown R60.0 - Localized edema / Brian, Active [place] 8 R60.0(ICD-10) [facility] Hospital Repository Unknown N28.9 - Disorder of Brian, Active [place] 8 kidney and ureter, [facility] unspecified / Hospital N28.9(ICD-10) Repository Unknown E78.00 - Pure Brian, Active [place] 8 hypercholesterolemia, [facility] unspecified / Hospital E78.00(ICD-10) Repository Unknown E78.0 - Pure Brian, Active [place] [facility] hypercholesterolemia / [facility] E78.0(ICD-10) Hospital Repository Unknown I87.2 - Venous Ferrell, Vadim Active [place] 8 insufficiency (chronic) Community (peripheral) / Hospital I87.2(ICD-10) Repository Unknown I50.22 - Chronic systolic Chaya Ziggy Hernandez Active [place] 8 (congestive) heart Community failure / I50.22(ICD-10) Hospital Repository Unknown R60.9 - Edema, Snehal, Active [place] 8 unspecified / [facility] R60.9(ICD-10) Hospital Repository Unknown I50.9 - Heart failure, Snehal, Active [place] [facility] unspecified / Florencia [facility] I50.9(ICD-10) Hospital Repository Active Chronic kidney disease, NA Active [facility] stage 3 (moderate) / Clinic Main N18.3(ICD-10) [facility] Rep[facility] Active Anemia in chronic kidney NA Active [facility] disease / D63.1(ICD-10) Clinic Main [facility] Rep[facility] Active Proteinuria, unspecified NA Active [facility] / R80.9(ICD-10) Clinic Main [facility] Rep[facility] Active Disorder of kidney and NA Active [facility] ureter, unspecified / Clinic Main N28.9(ICD-10) [facility] Rep[facility] Active Unspecified abnormal NA Active [facility] findings in urine / Clinic Main R82.90(ICD-10) [facility] Repository Active Anemia, unspecified / NA Active [facility] D64.9(ICD-10) Clinic Main [facility] Rep[facility] Active Type 2 diabetes mellitus NA Active [facility] with diabetic chronic Clinic Main kidney disease / [facility] E11.22(ICD-10) Repository Admitting Unknown / UNK(Unknown) Sudhir, Active [facility] 8 diagnosis [facility] Repository Unknown I21.4 - Non-ST elevation Brian, Active [place] 8 (NSTEMI) myocardial [facility] infarction / Hospital I21.4(ICD-10) Repository Active Type 2 diabetes mellitus NA Active [facility] with hyperglycemia / Clinic Main E11.65(ICD-10) [facility] Repository Active [facility] (current) use NA Active [facility] of insulin / Clinic Main Z79.4(ICD-10) [facility] Repository Unknown H46.8 - Other optic Ten, Active [place] 8 neuritis / H46.8(ICD-10) [facility] Repository Admitting [place] W/O ANGIN LAHORRA, Active [facility] diagnosis / I25.10(ICD-10) [facility] Repository Active [place] W/O ANGIN LAHORRA, Active [facility] 7 / I25.10(ICD-10) [facility] Repository Secondary ACUTE CHRON SYSTOLIC HEA LAHORRA, Active [facility] diagnosis / I50.23(ICD-10) [facility] Repository Secondary ACUTE RESPIRATORY FAIL W LAHORRA, Active [facility] diagnosis / J96.01(ICD-10) [facility] Repository Secondary ATRIOVENTRICULAR BLOCK C LAHORRA, Active [facility] diagnosis / I44.2(ICD-10) [facility] Repository Secondary CARDIAC ARREST CAUSE UNS LAHORRA, Active [facility] diagnosis / I46.9(ICD-10) [facility] Repository Secondary VENTRICULAR TACHYCARDIA / LAHORRA, Active [facility] 7 diagnosis I47.2(ICD-10) [facility] Repository Secondary ACUTE POSTHEMORRHAGIC AN LAHORRA, Active [facility] diagnosis / D62(ICD-10) [facility] Repository Secondary HYPO-OSMOLALITY AND HYPO LAHORRA, Active [facility] diagnosis / E87.1(ICD-10) [facility] Repository Secondary ATELECTASIS / LAHORRA, Active [facility] 7 diagnosis J98.11(ICD-10) [facility] Repository Secondary HTN HEART DISEASE W/HEAR LAHORRA, Active [facility] diagnosis / I11.0(ICD-10) [facility] Repository Secondary TYPE 2 DM W/HYPERGLYCEMI LAHORRA, Active [facility] diagnosis / E11.65(ICD-10) [facility] Repository Secondary RESIDENTIAL CURRENT USE OF LAHORRA, Active [facility] diagnosis / Z79.4(ICD-10) [facility] Repository Secondary ISCHEMIC CARDIOMYOPATHY / LAHORRA, Active [facility] 7 diagnosis I25.5(ICD-10) [facility] Repository Secondary HYPERLIPIDEMIA UNSPECIFI LAHORRA, Active [facility] diagnosis / E78.5(ICD-10) [facility] Repository Secondary UNSPECIFIED GLAUCOMA / LAHORRA, Active [facility] 7 diagnosis H40.9(ICD-10) [facility] Repository Secondary OLD MYOCARDIAL INFARCTIO LAHORRA, Active [facility] 7 diagnosis / I25.2(ICD-10) [facility] Repository Secondary POLYNEUROPATHY UNSPECIFI LAHORRA, Active [facility] 7 diagnosis / G62.9(ICD-10) [facility] Repository Secondary BRADYCARDIA UNSPECIFIED / LAHORRA, Active [facility] 7 diagnosis R00.1(ICD-10) [facility] Repository Secondary RETENTION OF URINE UNSPE LAHORRA, Active [facility] diagnosis / R33.9(ICD-10) [facility] Repository Secondary MAKEUP INSTRUCTOR USE ORAL HYPOG LAHORRA, Active [facility] 7 diagnosis / Z79.84(ICD-10) [facility] Repository Secondary PRESENCE RT ARTIFICIAL K LAHORRA, Active [facility] diagnosis / Z96.651(ICD-10) [facility] Repository PROCEDURES PROCEDURES DATE CODE DESCRIPTION STATUS SOURCE 04/12/2017 BP CA 2 SITE AORTA BP CA 2 SITE AORTA Completed [facility] AUTO(ICD-10) AUTO [facility] Repository 04/12/2017 BP COR ART 1 SITE BP COR ART 1 SITE Completed [facility] LT INT(ICD-10) LT INT [facility] Rep[facility] 04/12/2017 EXCISION LT GT SAPH EXCISION LT GT SAPH Completed [facility] VN P(ICD-10) VN P [facility] 04/12/2017 PERFORMANCE CARDIAC PERFORMANCE CARDIAC Completed [facility] OUTP(ICD-10) OUTP [facility] Rep[facility] 04/12/2017 USG LEFT HEART USG LEFT HEART Completed [facility] TRANSESOP(ICD-10) TRANSESOP [facility] Rep[facility] 04/12/2017 SIKHISM CARDIAC SIKHISM CARDIAC Completed [facility] RHYT(ICD-10) RHYT [facility] Rep[facility] 04/12/2017 INSRT ET AW TRACHEA INSRT ET AW TRACHEA Completed [facility] ESPERANZA/(ICD-10) ESPERANZA/ [facility] Repository 04/12/2017 RESPIRATORY VENT RESPIRATORY VENT Completed [facility] 24-96 C(ICD-10) 24-96 C [facility] Repository RESULTS RESULTS CBC-COMPLETE BLOOD CNT Collected: 09/11/2018 Status: F Source: [place] NO DIFF [facility] TYPE CODE TESTS RESULT OUT OF RANGE REFERENCE UNITS LAB L100.1000 4.4-11.0 K/mm3 Normal WBC 5.9 LAB L100.1200 4.6-6.2 M/mm3 Low RBC 3.50 LAB L100.1300 13.0-16.5 g/dl Low HGB 10.2 LAB L100.1400 40-54 % Low HCT 32.1 LAB L100.1500 80-94 fL Normal MCV 91.7 LAB L100.1600 27.0-32.0 pg Normal MCH 29.1 LAB L100.1700 32-36 g/gl Low MCHC 31.8 LAB L100.1810 11.6-14.6 % Normal RDW CV 14.2 LAB L100.1820 35.1-43.9 fl High RDW SD 46.4 LAB L100.1900 150-450 K/mm3 Normal PLT 243 LAB L100.2000 6.2-12.0 fl Normal MPV 9.9 Performed By: #### L100.0500 #### [facility] [address] [place], [address] RENAL PROFILE Collected: 09/11/2018 Status: F Source: [place] 3:36 PM [facility] REPOSITORY TYPE CODE TESTS RESULT OUT OF RANGE REFERENCE UNITS LAB L501.0100 74-106 mg/dL High GLU 136 Result Comment: Fasting Glucose result greater than or equal to 126 mg/dL suggests DIABETES MELLITUS per A.D.A. criteria. Please note revised GLUCOSE reference range effective 2017. LAB L501.1000 7-18 mg/dL High BUN 57 LAB L501.1100 0.70-1.30 mg/dL High CREAT,SERUM 1.57 Result Comment: The validity of the calculated GFR AND GFRAA in patients over 70 years has not been determined. Clinical correlation is essential. LAB L501.1110 >60 mL/min Low EST GFR 48 Result Comment: Non- GFR Calc LAB L501.1115 >60 mL/min Low EST GFR - AA 58 Result Comment: GFR Calc LAB L501.1300 10-20 RATIO High BUN/CRE 36.3 LAB L501.1800 3.2-5.0 g/dL Low ALB 2.7 LAB L501.2200 8.5-10.1 mg/dL CA Normal 8.6 LAB L501.2300 2.5-4.9 mg/dL High PHOS 5.0 LAB L501.5300 136-145 mmol/L NA Normal 138 LAB L501.5600 3.5-5.1 mmol/L High K 5.4 LAB L501.5900 98-107 mmol/L CL Normal 104 LAB L501.6100 21.0-32.0 mmol/L Normal CO2 27.0 Performed By: #### L500.3600 #### [facility] [address] [place], [address] PROTEIN+CREATININE Collected: Status: F Source: [place] RATIO,URINE 09/11/2018 3:36 PM [facility] REPOSITORY TYPE CODE TESTS RESULT OUT OF RANGE REFERENCE UNITS LAB L501.1200 NO RANGE EST. mg/dL Normal UR CREAT 54.10 LAB L501.1930 <11.9 mg/dL High 270.4 PROTEIN,UR.R AN. LAB L501.1940 0-200 mg/g CRE High PROT:CRE 4998 RATIO Performed By: #### L501.0900, L502.0250 #### [facility] [address] [place], [address] MICROALB:CREAT Collected: 09/11/2018 Status: F Source: [place] RATIO,RANDOM UR 3:36 PM [facility] REPOSITORY TYPE CODE TESTS RESULT OUT OF RANGE REFERENCE UNITS LAB L502.0500 NO RANGE EST. mg/L Normal 2210.0 MICROALBUMIN ,UR LAB L502.0600 <30 mg/g CRE mg/g CRE High 4085.0 MALB:CREAT Performed By: #### L501.0900, L502.0250 #### [facility] [address] [place], [address] URINALYSIS, ROUTINE Collected: 09/11/2018 Status: F Source: [place] (DIPSTICK) 3:36 PM [facility] REPOSITORY Order Comment: How was Urine Obtained? CLEAN CATCH TYPE CODE TESTS RESULT OUT OF RANGE REFERENCE UNITS LAB L400.3000 Yellow COLOR Normal Yellow LAB L400.3050 Clear Normal CLARITY Clear LAB L400.3200 Normal mg/dl High 50 GLUCOSE, UR LAB L400.3300 Negative mg/dL Normal BILIRUBIN URINE Negative LAB L400.3400 Negative mg/dl Normal KETONE UR Negative LAB L400.3465 1.002-1.030 Normal SP.GR. DIPSTX 1.015 LAB L400.3550 5.0 - 8.0 pH UR Normal 5.0 LAB L400.3600 Negative mg/dl High PROT DIPSTX 500 LAB L400.3700 Normal mg/dl Normal UROBILI Normal LAB L400.3750 Negative Normal NITRITE UR Negative LAB L400.3780 Negative /ul High 10 OCCULT BLOOD-UR LAB L400.3800 Negative /ul LEUK Normal ESTERASE Negative Performed By: #### L400.2010 #### [facility] [address] [place], [address] VITAMIN D,25 HYDROXY Collected: 09/11/2018 Status: F Source: [place] 3:36 PM [facility] REPOSITORY TYPE CODE TESTS RESULT OUT OF REFERENCE UNITS RANGE LAB L506.1000 29.95-100.01 ng/mL Low Vitamin D 19.7 25-OH Result Comment: Vitamin D 25(OH) Status Range Deficiency <20 ng/mL (50nmol/L) Insuffciency 20 - 30 ng/mL (50 - 75 nmol/L) Sufficiency 30 - 100 ng/mL (75 - 250 nmol/L) Toxicity >100 ng/mL (>250 nmol/L) Performed By: #### L506.999 #### [facility] [address] [place], [address] PTHIN Collected: 09/11/2018 Status: F Source: [place] 3:36 PM [facility] REPOSITORY TYPE CODE TESTS RESULT OUT OF RANGE REFERENCE UNITS LAB L509.1000 18.4-80.1 pg/mL High PTHIN 104.7 Performed By: #### L509.1000 #### [facility] [address] [place], [address] POTASSIUM Collected: 08/12/2018 Status: F Source: [place] 1:42 PM [facility] REPOSITORY TYPE CODE TESTS RESULT OUT OF REFERENCE UNITS RANGE LAB K 3.7-5.1 mmol/L Potassium 5.1 MAGNESIUM Collected: 08/12/2018 Status: F Source: [place] 1:42 PM [facility] [place] REPOSITORY TYPE CODE TESTS RESULT OUT OF REFERENCE UNITS RANGE LAB MG 1.7-2.3 mg/dL Magnesium 1.7 CBC AND DIFFERENTIAL Collected: 08/08/2018 Status: F Source: [place] 11:15 AM [facility] REPOSITORY TYPE CODE TESTS RESULT OUT OF REFERENCE UNITS RANGE LAB WBC 3.70-11.00 k/uL WBC 5.87 LAB RBC 4.20-6.00 m/uL Low RBC 3.58 LAB HGB 13.0-17.0 g/dL Low Hemoglobin 10.3 LAB HCT 39.0-51.0 % Low Hematocrit 34.9 LAB MCV 80.0-100.0 fL MCV 97.5 LAB MCH 26.0-34.0 pG MCH 28.8 LAB MCHC 30.5-36.0 g/dL Low MCHC 29.5 LAB RDWCV 11.5-15.0 % RDW-CV 14.6 LAB PLTCT 150-400 k/uL Platelet Count 365 LAB MPV 9.0-12.7 fL MPV 10.2 LAB ANEUT % Neut% 75.2 LAB AANEUT 1.45-7.50 k/uL Abs Neut 4.39 LAB ALYMP % Lymph% 12.4 LAB AALYMP 1.00-4.00 k/uL Low Abs Lymph 0.73 LAB AMONO % Hardy% 9.0 LAB AAMONO <0.87 k/uL Abs Hardy 0.53 LAB AEOS % Eosin% 2.9 LAB AAEOS <0.46 k/uL Abs Eosin 0.17 LAB ABASO % Baso% 0.5 LAB AABASO <0.11 k/uL Abs Baso 0.03 LAB AUNRBC 0 /100 WBC NRBCs 0.0 LAB ABNRBC <0.01 k/uL Absolute nRBC <0.01 LAB DTYP DTYPE Auto Diff Performed By: #### CBCDIF, CMP #### [facility] [address] [place] [address] COMP METABOLIC PANEL Collected: 08/08/2018 Status: F Source: [place] 11:15 AM [facility] REPOS[facility]ORY TYPE CODE TESTS RESULT OUT OF REFERENCE UNITS RANGE LAB TP 6.3-8.0 g/dL Protein, Total 6.9 LAB ALB 3.9-4.9 g/dL Low Albumin 3.1 LAB CA 8.5-10.2 mg/dL Calcium, Total 9.2 LAB TBIL 0.2-1.3 mg/dL Bilirubin, Total 0.3 LAB ALKP 38-113 U/L Alkaline High Phosphatase 149 LAB AST 14-40 U/L AST High 57 LAB GLU 74-99 mg/dL Glucose High 155 Result Comment: The [place] [employer] (ADA) provides guidance for cutoff values for fasting glucose and random glucose. The ADA defines fasting as no caloric intake for at least 8 hours. Fas ting plasma glucose results between 100 to 125 mg/dL indicate increased risk for diabetes (prediabetes). Fasting plasma glucose results greater than or equal to 126 mg/dL meet the criteria for diagnosis of diabetes. In the absence of unequivocal hyperglycemia, results should be confirmed by repeat testing. In a patient with classic symptoms of hyperglycemia or hyperglycemic crisis, random plasma glucose results greater than or equal to 200 mg/dL meet the criteria for diagnosis of diabetes. Reference: Standards of Medical Care in Diabetes 2016, [place] [employer] Association. Diabetes Care. 2016.39(Suppl 1). LAB BUN 9-24 mg/dL BUN High 54 LAB CRET 0.73-1.22 mg/dL Creatinine High 1.54 LAB NA 136-144 mmol/L Sodium 137 LAB K 3.7-5.1 mmol/L Potassium High 5.7 LAB CL 97-105 mmol/L Chloride 98 LAB CO2 22-30 mmol/L CO2 26 LAB AGAP 9-18 mmol/L Anion [place] 13 LAB ALT 10-54 U/L ALT High 70 LAB GFRAA eGFR- Amer. 56 LAB GFRNAA . eGFR-All Other Races 46 Result Comment: eGFR (Estimated GFR) Units of measure: mL/min/1.73 meters squared eGFR is derived from the reexpressed MDRD Study equation using the following parameters: serum creatinine, age, gender and race. The creatinine assay has been calibrated to be traceable to IDMS. An eGFR <60 mL/min/1.73m2 for >3 months is consistent with chronic kidney disease. Refer to KDOQI guidelines for clinical interpretation. In patients with unstable renal function, e.g. those with acute kidney injury, the eGFR may not accurately reflect actual GFR. Performed By: #### CBCDIF, CMP #### [facility] [facility] [address] [place], [place] [address] PROGRESS Observed: 08/06/2018 Status: COMPLETED Source: [place] 9:09 AM [facility] [place] REPOSITORY HNO ID: [id number] Author: Prerna Luz Service: (none) Author Type: Nurse Practitioner Type: Progress Notes Filed: 08/06/2018 11:34 AM Note Text: 08/06/2018 Patient presents with: Physical SUBJECTIVE: This is a 62 year old that is here today with his for physical for insurance needing form completed. Heart: He is followed by the heart group and saw Florencia ROWAN last week and she said that she said that she feels that the kidney injury was likely caused by the need for increased diuretics previously. He is down to 40mg of lasix daily now and not having any concern for edema. She is happy with his BP and feels that he is stable. He will see Dr. Chacon again in November. Kidney: He states that he is no longer having trouble urinating. He states that he no longer feels that he is retaining urine or edema. 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 He denies any blood in urine. He denies difficulty urinating. No flank pain. They have an appointment scheduled on 08/29/18 with a steam oven operator at [facility]. Hip: He feels that he is doing well. PT 3 days a week. Seeing ortho this week for follow up with staple removal. No concerns for infections at that incision sites. Using a walker to get around. Taking the pain medicine zero to twice a day. He is wearing his thigh high compression stocking. He continues with lovenox injections at home and is not currently taking asa, will know more of a plan at his follow up. HTN: Mr. Quinones indicates that he is feeling well and denies any symptoms referable to elevated blood pressure. Specifically denies headache, chest pain, palpitations, dyspnea and peripheral edema. Patient denies any side effects of his medication(s) and is compliant with their regimen. He does not check BP's generally. He watches his diet for sodium, low fat and low cholesterol most of the time. Last 3 Encounter BP Readings: Date: BP: 08/06/2018 134/80 07/25/2018 150/68 07/11/2018 144/76 DIABETES MELLITUS: Since his last visit he denies excessive thirst or increased frequency of urination, chest pain or dyspnea , numbness, tingling or pain in extremities, new or unusual visual symptoms, low sugar/hypoglycemic reactions, weight loss/gain, lightheadedness/dizziness and bowel changes/loose stools. Follows a diabetic diet most of the time, admits that he has done much better recently. He is compliant with medication(s) and is tolerating med(s) without any side effects. He reports checking his glucose on a infrequent to not at all basis schedule Patient's last HgA1C was Hemoglobin A1C (%) Date Value 07/25/2018 6.6 01/31/2018 9.0 ) Last Ophthalmology exam was over a year ago, had initially planned it, but had to cancel it for this surgery. Hyperlipidemia. Mr. Quinones reports doing well on current therapy of pravastatin (Pravachol) 80 mg. Denies side effects of muscle weakness or achiness. His most recent lipid panels are: Cholesterol, Total (mg/dL) Date Value 07/25/2018 120 08/24/2017 177 HDL Cholesterol (mg/dL) Date Value 07/25/2018 38 08/24/2017 49 LDL Cholesterol (mg/dL) Date Value 07/25/2018 61 08/24/2017 114 Triglyceride (mg/dL) Date Value 07/25/2018 103 08/24/2017 70 PAST MEDICAL HISTORY Diagnosis Date - Ankylosing spondylitis (HCC) - CAD (coronary artery disease) - Cellulitis - Constipation - Diabetes (HCC) - Gout - Hx of fracture multiple bones - NSTEMI (non-ST elevated myocardial infarction) ([facility]) 03/12/2017 [facility] admit - Osteoarthritis ALLERGIES Lyrica [Pregabalin] MEDICATIONS Current Outpatient Prescriptions: carvedilol (COREG) 25 mg tablet Take 25 mg by mouth twice daily with meals. doxazosin (CARDURA) 4 mg tablet Take 0.5 tablets by mouth twice daily. furosemide (LASIX) 40 mg tablet Take 1 tablet by mouth once daily. gabapentin (NEURONTIN) 600 mg tablet Take 1 tablet by mouth once daily for 30 days. insulin detemir U-100 (LEVEMIR FLEXTOUCH U-100 INSULN) 100 unit/mL (3 mL) inpn injection Inject 17 Units subcutaneously daily at bedtime. latanoprost (XALATAN) 0.005 % ophthalmic solution Use 1 Drop in both eyes daily at bedtime. into affected eye(s). metOLAzone (ZAROXOLYN) 2.5 mg tablet Take 2.5 mg by mouth every other day. mometasone (ELOCON) 0.1 % cream Apply 1 application to affected area once daily. Do not use more than two weeks MULTIVITAMIN/IRON/FOLIC ACID (DAILY MULTI ORAL) Take 2 Each by mouth once daily. pravastatin (PRAVACHOL) 80 mg tablet Take 80 mg by mouth once daily. Tadalafil (CIALIS) 20 mg tab(s) Take 1 tablet by mouth as needed. tamsulosin ER (FLOMAX) 0.4 mg cap Take 0.4 mg by mouth daily at bedtime. aspirin, enteric coated (ASPIR-81) 81 mg EC tablet Take 1 tablet by mouth once daily. No current facility-administered medications for this visit. Medications and allergies reviewed by this provider. SOCIAL HISTORY Social History Marital status: Spouse name: Yun Years of education: Number of children: 2 Social History Main Topics Smoking status: Never Smoker Smokeless tobacco: Former User Types: Chew Quit date: 04/17/2017 Alcohol use: No Comment: seldom Drug use: No Sexual activity: Yes Partners with: Female Other Topics Concern Service No Blood Transfusions No Caffeine Concern No Comment:None Occupational Exposure No Hobby Hazards No Sleep Concern No Stress Concern No Weight Concern Yes Special Diet No Back Care No Exercise No Comment:No formal Bike Helmet No Seat Belt Yes Self-Exams No REVIEW OF SYSTEMS GENERAL: No weight loss, malaise or fevers HEENT: Negative for frequent or significant headaches, No changes in hearing or vision, no nose bleeds or other nasal problems NECK: Negative for lumps, goiter, pain and significant neck swelling RESPIRATORY: Negative for cough, hemoptysis, wheezing, COPD, dyspnea or shortness of breath CARDIOVASCULAR: Negative for chest pain, leg swelling, hypertension, CHF or palpitations GI: No nausea, vomiting, or diarrhea, No heartburn or reflux symptoms and Constipation : No history of dysuria, frequency or incontinence, See HPI MUSCULOSKELETAL: recovering from total hip repair 4 weeks ago SKIN: Negative for lesions, rash, and itching PSYCH: Negative for sleep disturbance, mood disorder and recent psychosocial stressors HEMATOLOGY/LYMPHOLOGY: Negative for prolonged bleeding, bruising easily or swollen nodes ENDOCRINE: See HPI NEURO: No history of headaches, syncope, paralysis, seizures or tremors OBJECTIVE: BP 134/80 Pulse 66 Resp 16 Wt 80.7 kg (178 lb) SpO2 94% BMI 26.67 kg/m? . Vital signs reviewed by this provider. PHYSICAL EXAMINATION: General appearance: Well appearing, alert, in no acute distress, well-hydrated, well nourished. Skin: Skin color, texture, turgor normal, no suspicious rashes or lesions Head: Normocephalic, no masses, lesions, tenderness or abnormalities Eyes: Anicteric sclera. Pupils are equally round and reactive to light. Extraocular movements are intact. Ears: Positive findings: cerumen on right, amount Moderate, No concerns with the left. He plans to follow up with ENT for irrigation and [facility] follow up Nose/Sinuses: Nares normal, septum midline, mucosa normal, no drainage or sinus tenderness Oropharynx: Lips, mucosa, and tongue normal, teeth and gums normal, oropharynx normal Neck: Supple, no adenopathy; thyroid symmetric, normal size, no bruits Lungs: lungs clear to auscultation. No wheezing, rhonchi, rales Heart: RRR without murmur, gallop, or rubs. No ectopy Abdomen: Normal abdominal exam, Abdomen soft, non-tender. Bowel sounds normal. No masses, organomegaly Extremities: No deformities, edema, skin discoloration, clubbing or cyanosis. Good capillary refill. , Pulses: 2+ Musculoskeletal: tenderness to the right hip, thigh, and knee- s/p total hip replacement and minesh removal Neuro: Negative findings: speech normal, mental status intact, muscle tone normal, muscle strength normal ASSESSMENT/PLAN: 1. Wellness examination - ICD9: V70.0, ICD10: Z00.00 (primary diagnosis) - Recommended regular aerobic exercise. - discussed and encouraged healthy diet specifically related to heart health and diabetes - Follow up for annual exam in one year. 2. Uncontrolled type 2 diabetes mellitus without complication, with long-term current use of insulin (HCC) - ICD9: 250.02, V58.67, ICD10: E11.65, Z79.4 Controlled. - Continue current medications - Blood glucose monitoring on a every other day schedule - Ophthalmology referral for eval/management of diabetic eye changes - Follow up in 6 months, sooner should any other issues arise. - Discussed diabetic education issues of custodial diabetic complications, hypoglycemic symptoms, hyperglycemic symptoms, diet, medications- side effects and need for compliance, importance of exercise, use and side effects of insulin and importance of annual examinations with Opthalmology with patient. 3. Arteriosclerotic heart disease (ASHD) - ICD9: 414.00, ICD10: I25.10 - continue to follow with Dr. Chacon 4. Hypertension, essential - ICD9: 401.9, ICD10: I10 - good control - Continue current medication(s) - Encouraged dietary sodium restriction/DASH diet - Recommended regular aerobic exercise. - Recommend home blood pressure monitoring, to bring results in on next visit - Recheck in 6 months, sooner should new symptoms or problems arise. - Reviewed risks of HTN and principles of treatment - Goal of BP <130/80 - Recommended no refined sugar, low refined starch, healthy oil intake (olive oil), healthy protein (fish) along the lines of the Mediterranean diet. 5. Acute renal failure superimposed on stage 3 chronic kidney disease, unspecified acute renal failure type (HCC) - ICD9: 584.9, 585.3, ICD10: N17.9, N18.3 - will repeat labs today - follow up with nephrology as planned - COMP METABOLIC PANEL 6. Chronic constipation - ICD9: 564.00, ICD10: K59.09 - stable 7. Lower leg edema - ICD9: 782.3, ICD10: R60.0 - stable 8. Anemia of chronic renal failure, stage 3 (moderate) (HCC) - ICD9: 285.21, 585.3, ICD10: N18.3, D63.1 - will recheck labs today - CBC + DIFF Prerna Luz APRN.[employer] OTHER [employer]ANKS CNOV Observed: 08/06/2018 Status: COMPLETED Source: [place] 9:00 AM [facility] REPOSITORY Office Visit (FAMPWS) MAURI QUINONES ([id number]) 1955 M Date Time Provider Department 08/06/18 9:00 AM PRERNA LUZ ([facility]ARGUERITE) FAMPWS During your visit today, we recorded the following information about you: Pulse Respiration Blood pressure Weight 66/minute 16/minute 134/80 80.7 kg Prerna Luz APRN.MARGUERITE 08/06/2018 11:34 AM Signed 08/06/2018 Patient presents with: Physical SUBJECTIVE: This is a 62 year old that is here today with his for physical for insurance needing form completed. Heart: He is followed by the heart group and saw Florencia ROWAN last week and she said that she said that she feels that the kidney injury was likely caused by the need for increased diuretics previously. He is down to 40mg of lasix daily now and not having any concern for edema. She is happy with his BP and feels that he is stable. He will see Dr. Chacon again in November. Kidney: He states that he is no longer having trouble urinating. He states that he no longer feels that he is retaining urine or edema. 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 He denies any blood in urine. He denies difficulty urinating. No flank pain. They have an appointment scheduled on 08/29/18 with a steam oven operator at [facility]. Hip: He feels that he is doing well. PT 3 days a week. Seeing ortho this week for follow up with staple removal. No concerns for infections at that incision sites. Using a walker to get around. Taking the pain medicine zero to twice a day. He is wearing his thigh high compression stocking. He continues with lovenox injections at home and is not currently taking asa, will know more of a plan at his follow up. HTN: Mr. Quinones indicates that he is feeling well and denies any symptoms referable to elevated blood pressure. Specifically denies headache, chest pain, palpitations, dyspnea and peripheral edema. Patient denies any side effects of his medication(s) and is compliant with their regimen. He does not check BP's generally. He watches his diet for sodium, low fat and low cholesterol most of the time. Last 3 Encounter BP Readings: Date: BP: 08/06/2018 134/80 07/25/2018 150/68 07/11/2018 144/76 DIABETES MELLITUS: Since his last visit he denies excessive thirst or increased frequency of urination, chest pain or dyspnea , numbness, tingling or pain in extremities, new or unusual visual symptoms, low sugar/hypoglycemic reactions, weight loss/gain, lightheadedness/dizziness and bowel changes/loose stools. Follows a diabetic diet most of the time, admits that he has done much better recently. He is compliant with medication(s) and is tolerating med(s) without any side effects. He reports checking his glucose on a infrequent to not at all basis schedule Patient's last HgA1C was Hemoglobin A1C (%) Date Value 07/25/2018 6.6 01/31/2018 9.0 ) Last Ophthalmology exam was over a year ago, had initially planned it, but had to cancel it for this surgery. Hyperlipidemia. Mr. Quinones reports doing well on current therapy of pravastatin (Pravachol) 80 mg. Denies side effects of muscle weakness or achiness. His most recent lipid panels are: Cholesterol, Total (mg/dL) Date Value 07/25/2018 120 08/24/2017 177 HDL Cholesterol (mg/dL) Date Value 07/25/2018 38 08/24/2017 49 LDL Cholesterol (mg/dL) Date Value 07/25/2018 61 08/24/2017 114 Triglyceride (mg/dL) Date Value 07/25/2018 103 08/24/2017 70 PAST MEDICAL HISTORY Diagnosis Date - Ankylosing spondylitis (HCC) - CAD (coronary artery disease) - Cellulitis - Constipation - Diabetes (HCC) - Gout - Hx of fracture multiple bones - NSTEMI (non-ST elevated myocardial infarction) ([facility]) 03/12/2017 [facility] admit - Osteoarthritis ALLERGIES Lyrica [Pregabalin] MEDICATIONS Current Outpatient Prescriptions: carvedilol (COREG) 25 mg tablet Take 25 mg by mouth twice daily with meals. doxazosin (CARDURA) 4 mg tablet Take 0.5 tablets by mouth twice daily. furosemide (LASIX) 40 mg tablet Take 1 tablet by mouth once daily. gabapentin (NEURONTIN) 600 mg tablet Take 1 tablet by mouth once daily for 30 days. insulin detemir U-100 (LEVEMIR FLEXTOUCH U-100 INSULN) 100 unit/mL (3 mL) inpn injection Inject 17 Units subcutaneously daily at bedtime. latanoprost (XALATAN) 0.005 % ophthalmic solution Use 1 Drop in both eyes daily at bedtime. into affected eye(s). metOLAzone (ZAROXOLYN) 2.5 mg tablet Take 2.5 mg by mouth every other day. mometasone (ELOCON) 0.1 % cream Apply 1 application to affected area once daily. Do not use more than two weeks MULTIVITAMIN/IRON/FOLIC ACID (DAILY MULTI ORAL) Take 2 Each by mouth once daily. pravastatin (PRAVACHOL) 80 mg tablet Take 80 mg by mouth once daily. Tadalafil (CIALIS) 20 mg tab(s) Take 1 tablet by mouth as needed. tamsulosin ER (FLOMAX) 0.4 mg cap Take 0.4 mg by mouth daily at bedtime. aspirin, enteric coated (ASPIR-81) 81 mg EC tablet Take 1 tablet by mouth once daily. No current facility-administered medications for this visit. Medications and allergies reviewed by this provider. SOCIAL HISTORY Social History Marital status: Spouse name: Yun Years of education: Number of children: 2 Social History Main Topics Smoking status: Never Smoker Smokeless tobacco: Former User Types: Chew Quit date: 04/17/2017 Alcohol use: No Comment: seldom Drug use: No Sexual activity: Yes Partners with: Female Other Topics Concern Service No Blood Transfusions No Caffeine Concern No Comment:None Occupational Exposure No Hobby Hazards No Sleep Concern No Stress Concern No Weight Concern Yes Special Diet No Back Care No Exercise No Comment:No formal Bike Helmet No Seat Belt Yes Self-Exams No REVIEW OF SYSTEMS GENERAL: No weight loss, malaise or fevers HEENT: Negative for frequent or significant headaches, No changes in hearing or vision, no nose bleeds or other nasal problems NECK: Negative for lumps, goiter, pain and significant neck swelling RESPIRATORY: Negative for cough, hemoptysis, wheezing, COPD, dyspnea or shortness of breath CARDIOVASCULAR: Negative for chest pain, leg swelling, hypertension, CHF or palpitations GI: No nausea, vomiting, or diarrhea, No heartburn or reflux symptoms and Constipation : No history of dysuria, frequency or incontinence, See HPI MUSCULOSKELETAL: recovering from total hip repair 4 weeks ago SKIN: Negative for lesions, rash, and itching PSYCH: Negative for sleep disturbance, mood disorder and recent psychosocial stressors HEMATOLOGY/LYMPHOLOGY: Negative for prolonged bleeding, bruising easily or swollen nodes ENDOCRINE: See HPI NEURO: No history of headaches, syncope, paralysis, seizures or tremors OBJECTIVE: BP 134/80 Pulse 66 Resp 16 Wt 80.7 kg (178 lb) SpO2 94% BMI 26.67 kg/m? . Vital signs reviewed by this provider. PHYSICAL EXAMINATION: General appearance: Well appearing, alert, in no acute distress, well-hydrated, well nourished. Skin: Skin color, texture, turgor normal, no suspicious rashes or lesions Head: Normocephalic, no masses, lesions, tenderness or abnormalities Eyes: Anicteric sclera. Pupils are equally round and reactive to light. Extraocular movements are intact. Ears: Positive findings: cerumen on right, amount Moderate, No concerns with the left. He plans to follow up with ENT for irrigation and [facility] follow up Nose/Sinuses: Nares normal, septum midline, mucosa normal, no drainage or sinus tenderness Oropharynx: Lips, mucosa, and tongue normal, teeth and gums normal, oropharynx normal Neck: Supple, no adenopathy; thyroid symmetric, normal size, no bruits Lungs: lungs clear to auscultation. No wheezing, rhonchi, rales Heart: RRR without murmur, gallop, or rubs. No ectopy Abdomen: Normal abdominal exam, Abdomen soft, non-tender. Bowel sounds normal. No masses, organomegaly Extremities: No deformities, edema, skin discoloration, clubbing or cyanosis. Good capillary refill. , Pulses: 2+ Musculoskeletal: tenderness to the right hip, thigh, and knee- s/p total hip replacement and minesh removal Neuro: Negative findings: speech normal, mental status intact, muscle tone normal, muscle strength normal ASSESSMENT/PLAN: 1. Wellness examination - ICD9: V70.0, ICD10: Z00.00 (primary diagnosis) - Recommended regular aerobic exercise. - discussed and encouraged healthy diet specifically related to heart health and diabetes - Follow up for annual exam in one year. 2. Uncontrolled type 2 diabetes mellitus without complication, with long-term current use of insulin (HCC) - ICD9: 250.02, V58.67, ICD10: E11.65, Z79.4 Controlled. - Continue current medications - Blood glucose monitoring on a every other day schedule - Ophthalmology referral for eval/management of diabetic eye changes - Follow up in 6 months, sooner should any other issues arise. - Discussed diabetic education issues of php consultant diabetic complications, hypoglycemic symptoms, hyperglycemic symptoms, diet, medications- side effects and need for compliance, importance of exercise, use and side effects of insulin and importance of annual examinations with Opthalmology with patient. 3. Arteriosclerotic heart disease (ASHD) - ICD9: 414.00, ICD10: I25.10 - continue to follow with Dr. Chacon 4. Hypertension, essential - ICD9: 401.9, ICD10: I10 - good control - Continue current medication(s) - Encouraged dietary sodium restriction/DASH diet - Recommended regular aerobic exercise. - Recommend home blood pressure monitoring, to bring results in on next visit - Recheck in 6 months, sooner should new symptoms or problems arise. - Reviewed risks of HTN and principles of treatment - Goal of BP <130/80 - Recommended no refined sugar, low refined starch, healthy oil intake (olive oil), healthy protein (fish) along the lines of the Mediterranean diet. 5. Acute renal failure superimposed on stage 3 chronic kidney disease, unspecified acute renal failure type (HCC) - ICD9: 584.9, 585.3, ICD10: N17.9, N18.3 - will repeat labs today - follow up with nephrology as planned - COMP METABOLIC PANEL 6. Chronic constipation - ICD9: 564.00, ICD10: K59.09 - stable 7. Lower leg edema - ICD9: 782.3, ICD10: R60.0 - stable 8. Anemia of chronic renal failure, stage 3 (moderate) (HCC) - ICD9: 285.21, 585.3, ICD10: N18.3, D63.1 - will recheck labs today - CBC + DIFF Prerna Luz APRN.[employer] OTHER [employer]ANKS Referring Provider: SELF [[id number]] Allergies As of Date: 08/06/2018 Noted Allergy Reaction LYRICA (PREGABALIN) 03/23/2017 7 - Swelling Date Reviewed: 08/06/2018 Reviewed by: Isabela (Aishwarya) AISHWARYA Caal - Fully Assessed Reason for Visit: Physical [83] Primary Visit Diagnosis:Wellness examination [Z00.00] Other Visit Diagnoses:Uncontrolled type 2 diabetes mellitus without complication, with long-term current use of insulin (HCC) [E11.65, Z79.4] Arteriosclerotic heart disease (ASHD) [I25.10] Hypertension, essential [I10] Acute renal failure superimposed on stage 3 chronic kidney disease, unspecified acute renal failure type (HCC) [N17.9, N18.3] Chronic constipation [K59.09] Lower leg edema [R60.0] Anemia of chronic renal failure, stage 3 (moderate) (HCC) [N18.3, D63.1] Order(s):CBC + DIFF [SQCBCDIF] Order #: [id number] FUTURE COMP METABOLIC PANEL [SQCMP] Order #: [id number] FUTURE Prescriptions as of 08/06/2018 Sig: CARVEDILOL 25 MG TABLET Take 25 mg by mouth twice rafita* DOXAZOSIN 4 MG TABLET Take 0.5 tablets by mouth twi* FUROSEMIDE 40 MG TABLET Take 1 tablet by mouth once d* GABAPENTIN 600 MG TABLET Take 1 tablet by mouth once d* INSULIN DETEMIR (U-100) 100 U* Inject 17 Units subcutaneousl* LATANOPROST 0.005 % EYE DROPS Use 1 Drop in both eyes daily* METOLAZONE 2.5 MG TABLET Take 2.5 mg by mouth every ot* MOMETASONE 0.1 % TOPICAL CREAM Apply 1 application to affect* DAILY MULTI ORAL Take 2 Each by mouth once rafita* PRAVASTATIN 80 MG TABLET Take 80 mg by mouth once jagdeep* TADALAFIL 20 MG TABLET Take 1 tablet by mouth as nee* TAMSULOSIN 0.4 MG CAPSULE Take 0.4 mg by mouth daily at* ASPIRIN 81 MG TABLET,DELAYED * Take 1 tablet by mouth once d* Problem List As Of Date 08/06/2018 Noted Resolved Uncontrolled type 2 diabetes mellitus without c*INVALID FOR* More... 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 Hypertension, essential [I10] INVALID FOR* Lower leg edema [R60.0] INVALID FOR* More... Chronic left hip pain [M25.552, G89.29] INVALID FOR* Anemia of chronic renal failure, stage 3 (moder*INVALID FOR* Acute on chronic diastolic congestive heart zane*INVALID FOR* Recurrent right pleural effusion [J90] INVALID FOR* PVD (peripheral vascular disease) ([facility]) [I73.9] INVALID FOR* More... Encounter Status:Closed by PRERNA LZU on 08/06/18 CARDIOLOGY VISIT Observed: 08/05/2018 Status: F Source: [place] REPORT 10:59 AM [facility] [place] REPOSITORY [facility] [address] [place] [address] [address] [place] [address] OFFICE VISIT Date of Service: 08/02/18 MR#: [id number] Acct: [id number] Name: MAURI QUINONES Rep #: [id number] : 1955 Provider: Florencia Brian Age/Sex: 62/M Location: [facility] [place] Status: Signed HPI HPI Details: MAURI QUINONES, is a 62 M who presents to the office today for a cardiovascular outpatient follow-up for lower extremity edema. He has a history of coronary artery disease status post bypass surgery with a CARTY to LAD, SVG to the OM system and SVG to the PDA in March 2017 at [facility], postoperative ventricular tachycardia requiring resuscitation after bypass surgery, valvular heart disease, cardiomyopathy, congestive heart failure, pulmonary hypertension, and diabetes mellitus. He was able to undergo with hips surgery. He sts that unfortunately he did have acute renal injust after his surgery. He is being referred to a steam oven operator. All of his medications have been adjusted. His PCP is aware of his issues. Post-op he did not have any further edema. From a cardiac standpoint, patient is doing well. He does not have any chest discomfort/heaviness/tightness. He does not have any worsening symptoms of shortness of breath. He denies any PND. He does not have any orthopnea. He does not have any symptoms of congestive heart failure. He does not have any palpitations that he is aware of. He does not have any lightheadedness or dizziness. He does not have any near-syncope or syncope. Intake Vital Signs08/02/18 Height 5 ft 10 in 08/02/18 Weight: 178 lb 08/02/18 Body Mass Index (BMI) 25.5 08/02/18 Blood Pressure 122/78 H 08/02/18 Blood Pressure Location Lt brachial Intake Visit Reasons: 2 M FU PER MSG FROM [facility] [employer] Lab Technician Required: No Is patient in pain?: No Allergies pregabalin [From Lyrica] Allergy (Verified 08/02/18 13:23) Angioedema Medications carvedilol 25 mg tablet 25 mg PO BID #180 tab 05/14/18 [Rx Confirmed 08/02/18] Hydrocodone Bitart/Apap 5-325 [Acme 5MG-325MG] 1 tab PO Q4H PRN PRN 06/03/18 [History Confirmed 08/02/18] Insulin Detemir [Levemir] 17 unit SQ DINNER 06/03/18 [History Confirmed 08/02/18] Latanoprost 0.005% [Xalatan Opthalmic] 1 drp EACH EYE QHS 06/03/18 [History Confirmed 08/02/18] Pravastatin Sodium 80 mg PO DAILY 06/03/18 [History Confirmed 08/02/18] Tadalafil [Cialis] 20 mg PO PRN PRN 06/03/18 [History Confirmed 08/02/18] lisinopril 20 mg tablet 40 mg PO DAILY #30 tab 07/15/18 [Rx Confirmed 07/15/18] aspirin 81 mg tablet,delayed release 81 mg PO DAILY tab 08/02/18 [History Confirmed 08/02/18] doxazosin 4 mg tablet 2 mg PO DAILY tab 08/02/18 [History Confirmed 08/02/18] furosemide 20 mg tablet See Rx Instructions PO .COMPLEX tab 08/02/18 [History Confirmed 08/02/18] furosemide 40 mg tablet 60 mg PO DAILY tab 08/02/18 [History Confirmed 08/02/18] gabapentin 300 mg capsule 600 mg PO DAILY cap 08/02/18 [History Confirmed 08/02/18] tamsulosin 0.4 mg capsule PO 30 Days #30 cap 08/02/18 [History Confirmed 08/02/18] PFSH Medical History Leg swelling (Chronic) Leg edema (Chronic) Overweight (BMI 25.0-29.9) (Chronic) CAD (coronary artery disease) (Chronic) Ankylosing spondylitis (Chronic) Renal insufficiency (Chronic) HTN (hypertension) (Chronic) Ventricular tachyarrhythmia (Chronic) Atherosclerosis of [place] coronary artery of [place] heart without angina pectoris (Chronic) DM2 (diabetes mellitus, type 2) (Chronic) Gout (Chronic) Diabetes mellitus with neuropathy (Chronic) Abscess of right foot (Chronic) CHF (congestive heart failure) (Chronic) NSTEMI (non-ST elevated myocardial infarction) (Chronic) Valvular heart disease (Chronic) Cardiomyopathy (Chronic) Pulmonary HTN (Chronic) Acute systolic heart failure (Chronic) Biliary pleural effusion (Chronic) Bradycardia (Chronic) Surgical History Hx of CABG (Chronic 04/12/17) Hx of arthroscopy (Chronic) hx femur surgery (Chronic) History of open reduction and internal fixation (ORIF) procedure (Resolved) Family History Father CAD (coronary artery disease) Mother CAD (coronary artery disease) Social History Smoking Status: Never smoker alcohol intake: never substance use type: does not use caffeine: Yes Type: carbonated beverages Number of servings: 4 what type of physical activity do you participate in: none seatbelt use: always do you feel safe at home: Yes ROS Const Const: Negative for weakness, fatigue, fever(s) or headache(s) Eyes Eyes: Negative for blind spots, loss of peripheral vision or transient loss of vision ENT ENT: Negative for headache(s), dizziness, tinnitus or Nosebleed/epistaxis Cardio Chest Pain: No Palpitations: No Edema: None Muscle aches with walking: None Resp Respiratory: Negative for SOB with activity, SOB at rest, SOB orthopnea\SOB lying down or Cough GI GI: Negative nausea, vomiting, heartburn or vomiting blood/hematemesis : Negative for hematuria Musc Musc: Negative for muscle aches/ myalgia Neuro Neuro: Negative for weakness, headache(s), dizziness, near syncope, syncope, lightheadedness or orthostatic symptoms Edward Hematologic/Lymphatic: Negative for easy bleeding Endo Endo: Negative for fatigue Cardiology Exam Const Appearance: cooperative, healthy appearing, comfortable and no acute distress Nutritional Appearance: average body habitus and well nourished Orientation: alert, awake and oriented x3 Head Head: normal to inspection Ears: hearing grossly normal bilaterally Nose: external nose normal Face and Sinus: face symmetric Mouth: oral mucosae normal Eyes General: appearance normal, both eyes and all related structures Eyelids: eyelids normal EOM: EOM intact bilaterally Neck Neck: no JVD and normal visual inspection Carotids: normal carotid upstroke Chest Chest inspection: normal inspection of the chest and normal respiratory effort; negative cough Auscultation: Bilateral: Clear to Auscultation Cardio Rate: regular rate Rhythm: regular rhythm Heart sounds: S1 normal and S2 normal; negative rub, gallop or murmur GI GI: normal to inspection Neuro General: alert, awake, oriented x3 and CN's II-XI intact bilaterally Skin Skin: no rashes or lesions noted Extremities Pulses: Normal: Right Posterior Tibial Pulse, Left Posterior Tibial Pulse, Right Radial Pulse, Left Radial Pulse Lower Extremity Edema: +2: Bilateral Psych Psychological: normal affect Assessment AND Plan 1. Essential hypertension I10 Plan Blood pressure is well controlled on current medications, we do not recommend any changes at this time. 2. Chronic systolic congestive heart failure I50.22 Plan Patient does not have any symptoms of congestive heart failure. His lower extremity edema his lower extremity edema has improved. His primary care doctor is managing his diuretics. He is being referred to nephrology. 3. Atherosclerosis of [place] coronary artery of [place] heart without angina pectoris I25.10 S/P surgery with CARTY to LAD, SVG to OM system, and SVG to PDA in March 2017 at [facility]; Plan Stable, from a cardiac standpoint patient does not have any symptoms of angina. We recommend that they continue with current aggressive medical management and risk factor modification. Plan Detail Other Medications Changed: Additional Comments Thank you for allowing us to participate in patient's plan of care, if you have any questions please do not hesitate to call. This note was generated using a voice recognition system and there may be incorrect words, spelling or punctuation errors that were not noted when reviewing the office note prior to saving. Follow Up 08/02/18 (Keep as is) Coding Level of Care Code Off vis,est,level 3 Diagnoses Essential hypertension I10 Hypertension type: essential hypertension Chronic systolic congestive heart failure I50.22 Heart failure type: systolic Heart failure chronicity: chronic Atherosclerosis of [place] coronary artery of [place] heart without angina pectoris I25.10 Coding Level of Care Code Off vis,est,level 3 Diagnoses Essential hypertension I10 Hypertension type: essential hypertension Chronic systolic congestive heart failure I50.22 Heart failure type: systolic Heart failure chronicity: chronic Atherosclerosis of [place] coronary artery of [place] heart without angina pectoris I25.10 08/05/18 1059 <Electronically signed by Florencia GAGNON> Date Florencia GAGNON Cosigner Signature: Date (if applicable) CC: Aditya Davis URINALYSIS WITH Collected: 07/25/2018 Status: F Source: [facility] 3:15 PM [facility]INIC MAIN [facility] REPOSITORY TYPE CODE TESTS RESULT OUT OF RANGE REFERENCE UNITS LAB UCOL Yellow Color Yellow LAB [facility] Clear Clarity Clear LAB UGLUC Negative mg/dL Glucose, Urine Negative LAB UBIL Negative Bilirubin, Urine Negative LAB UKET Negative Ketones, Urine Negative LAB USPG 1.005-1.030 Specific [place], Ur 1.010 LAB UHGB Negative Hemoglobin/Blood, Negative Ur LAB UPH 4.5-8.0 pH 6.0 LAB UPROT Negative mg/dL Protein, Abnormal Urine 100 Alert LAB UUROB Normal Urobilinogen Normal LAB UNITR Negative Nitrites Negative LAB ULKEST Negative Leukest Negative LAB UCOM Comments SEE COMMENT Result Comment: N/A LAB UMCOM Urine SEE Lionel Comment COMMENT Result Comment: N/A LAB UWBC 0-5 /HPF WBC 0-5 LAB URBC 0-3 /HPF RBC 0-3 LAB UCAST 0 /LPF Abnormal Alert Cast SEE COMMENT Result Comment: 1-3 Hyaline Cast Performed By: #### UAWMIC #### [facility] [employer] [address] [place], [place] [address] PROGRESS Observed: 07/25/2018 Status: COMPLETED Source: [place] 2:39 PM [facility] REPOSITORY HNO ID: [id number] Author: Aditya Morton) Ryan Service: (none) Author Type: Physician Delivery Driver/Customer Service Type: Progress Notes Filed: 07/25/2018 3:03 PM Note Text: Records received. 07/22/18CBC WBC 7.4, hemoglobin 9.4, hematocrit 29.6, platelet 193. Patient started out on 07/17/18 with hemoglobin of 11.7 and hematocrit of 36.9. 07/22/18 sodium 1:30, potassium 4.8, chloride 94, CO2 28, BUN 68, creatinine 3.010. Looks like her creatinine peaked at 3.36 on 07/20/18. 07/22/18 BNP was measured at 22,154, troponin 0.023 on 07/18/18. 07/19/18 urinalysis was negative. Patient's blood type is O- with negative antibody screen. 07/18/18 iron was low at 58, TIBC of 3:30, iron saturation of 18%, ferritin level 344.7 Medication reconciliation completed Albert Davis PA-C Observed: 07/25/2018 Status: F Source: [place] URINE CULTURE 1:00 PM [facility] REPOSITORY Sp. Request/Comment: - Specimen received in preservative Culture Result - No growth (<1,000 CFU/ml) Performed By: #### URCUL #### [facility] [employer] [address] [place], [place] [address] CBC AND DIFFERENTIAL Collected: 07/25/2018 Status: F Source: [place] 11:05 AM [facility] REPOSITORY TYPE CODE TESTS RESULT OUT OF REFERENCE UNITS RANGE LAB WBC 3.70-11.00 k/uL WBC 6.98 LAB RBC 4.20-6.00 m/uL Low RBC 3.66 LAB HGB 13.0-17.0 g/dL Low Hemoglobin 10.4 LAB HCT 39.0-51.0 % Low Hematocrit 34.2 LAB MCV 80.0-100.0 fL MCV 93.4 LAB MCH 26.0-34.0 pG MCH 28.4 LAB MCHC 30.5-36.0 g/dL Low MCHC 30.4 LAB RDWCV 11.5-15.0 % RDW-CV High 15.9 LAB PLTCT 150-400 k/uL Platelet Count 335 LAB MPV 9.0-12.7 fL MPV 9.8 LAB ANEUT % Neut% 75.4 LAB AANEUT 1.45-7.50 k/uL Abs Neut 5.27 LAB ALYMP % Lymph% 9.5 LAB AALYMP 1.00-4.00 k/uL Low Abs Lymph 0.66 LAB AMONO % Hardy% 13.2 LAB AAMONO <0.87 k/uL Abs Hardy High 0.92 LAB AEOS % Eosin% 1.6 LAB AAEOS <0.46 k/uL Abs Eosin 0.11 LAB ABASO % Baso% 0.3 LAB AABASO <0.11 k/uL Abs Baso <0.03 LAB AUNRBC 0 /100 WBC NRBCs 0.0 LAB ABNRBC <0.01 k/uL Absolute nRBC <0.01 LAB DTYP DTYPE Auto Diff Performed By: #### CBCDIF, HBA1C, BMP #### [facility] [employer] [place], [place] [address] HEMOGLOBIN A1C Collected: 07/25/2018 Status: F Source: [place] 11:05 [facility] REPOSITORY TYPE CODE TESTS RESULT OUT OF REFERENCE UNITS RANGE LAB HGBA1C 4.3-5.6 % High Hemoglobin A1c 6.6 Result Comment: [place] Diabetes Association guidelines indicate that patients with HgbA1c in the range 5.7-6.4% are at increased risk for development of diabetes, and intervention by lifestyle modification may be beneficial. HgbA1c greater or equal to 6.5% is considered diagnostic of diabetes. LAB HBA0 mg/dL Est. Average Glucose 143 Result Comment: eAG: (Estimated average glucose) is a calculated value from HgbA1c and is patient representative of the average blood glucose level in the last 2-3 month period. Performed By: #### CBCDIF, HBA1C, BMP #### [facility] [employer] [address] [place], [place] [address] BASIC METABOLIC PANL Collected: 07/25/2018 Status: F Source: [place] 11:05 AM [facility] REPOSITORY TYPE CODE TESTS RESULT OUT OF REFERENCE UNITS RANGE LAB GLU 74-99 mg/dL High Glucose 180 Result Comment: The [place] Diabetes Association (ADA) provides guidance for cutoff values for fasting glucose and random glucose. The ADA defines fasting as no caloric intake for at least 8 hours. Fas ting plasma glucose results between 100 to 125 mg/dL indicate increased risk for diabetes (prediabetes). Fasting plasma glucose results greater than or equal to 126 mg/dL meet the criteria for diagnosis of diabetes. In the absence of unequivocal hyperglycemia, results should be confirmed by repeat testing. In a patient with classic symptoms of hyperglycemia or hyperglycemic crisis, random plasma glucose results greater than or equal to 200 mg/dL meet the criteria for diagnosis of diabetes. Reference: Standards of Medical Care in Diabetes 2016, [place] Diabetes Association. Diabetes Care. 2016.39(Suppl 1). LAB BUN 9-24 mg/dL BUN High 78 LAB CRET 0.73-1.22 mg/dL Creatinine High 2.39 LAB NA 136-144 mmol/L Low Sodium 132 LAB K 3.7-5.1 mmol/L Potassium 4.6 LAB CL 97-105 mmol/L Low Chloride 90 LAB CO2 22-30 mmol/L CO2 28 LAB AGAP 9-18 mmol/L Anion Gap 14 LAB CA 8.5-10.2 mg/dL Calcium, Total 8.9 LAB GFRAA eGFR- Amer. 34 LAB GFRNAA . eGFR-All Other Races 28 Result Comment: eGFR (Estimated GFR) Units of measure: mL/min/1.73 meters squared eGFR is derived from the reexpressed MDRD Study equation using the following parameters: serum creatinine, age, gender and race. The creatinine assay has been calibrated to be traceable to IDMS. An eGFR <60 mL/min/1.73m2 for >3 months is consistent with chronic kidney disease. Refer to KDOQI guidelines for clinical interpretation. In patients with unstable renal function, e.g. those with acute kidney injury, the eGFR may not accurately reflect actual GFR. Performed By: #### CBCDIF, HBA1C, BMP #### [facility] [employer] [address] [place], [place] [address] LIPID PANEL, BASIC Collected: 07/25/2018 Status: F Source: [place] 11:05 AM [facility] REPOSITORY TYPE CODE TESTS RESULT OUT OF REFERENCE UNITS RANGE LAB CHOL <200 mg/dL Cholesterol 120 Result Comment: <200 mg/dL, Desirable 200-239 mg/dL, Borderline high >239 mg/dL, High LAB TRIGLY <150 mg/dL Triglyceride 103 Result Comment: <150 mg/dL, Normal 150-199 mg/dL, Borderline high 200-499 mg/dL, High >499 mg/dL, Very high LAB HDL >39 mg/dL HDL-Cholesterol Low 38 Result Comment: 40-59 mg/dL, Acceptable >59 mg/dL, High: Negative risk factor for coronary heart disease <40 mg/dL, Low: Positive risk factor for coronary heart disease LAB LDL <100 mg/dL LDL-Cholesterol 61 Result Comment: <100 mg/dL, Optimal 100-129 mg/dL, Near optimal/above optimal 130-159 mg/dL, Borderline high 160-189 mg/dL, High >189 mg/dL, Very high Secondary prevention optimal LDL Cholesterol levels are recommended to be < 70 mg/dL LAB NONHDL <130 mg/dL Non HDL Cholesterol 82 Result Comment: <130 mg/dL, Optimal 130-159 mg/dL, Near optimal/above optimal 160-189 mg/dL, Borderline high 190-219 mg/dL, High >219 mg/dL, Very high Secondary prevention optimal non HDL Cholesterol levels are recommended to be < 100 mg/dL LAB FT hrs Fasting Time 3 LAB VLDL <30 mg/dL VLDL Cholesterol 21 LAB TCHDL <5.10 TC:HDL Ratio 3.16 LAB LDLHDL <2.54 LDL:HDL Ratio 1.61 Result Comment: Reference: 1. National Cholesterol Education Program ATP III Guideline At-A-Glance Quick Desk Reference: National Heart, Lung, and Blood [place]. National Institutes of Health. 2001: NIH Publication No. 01-3305. 2. An International Atherosclerosis Society position paper: global recommendations for the management of dyslipidemia: executive summary, Atherosclerosis. 2014: 232(2):410-413. Performed By: #### LIPB #### [facility] [address] [place], [place] [address] PROGRESS Observed: 07/25/2018 Status: COMPLETED Source: [place] 10:03 AM [facility]IC [facility] REPOSITORY O ID: [id number] Author: Aditya Eckert (Pastor) Ryan Service: (none) Author Type: Physician Delivery Driver/Customer Service Type: Progress Notes Filed: 07/25/2018 1:54 PM Note Text: 62 year old male with c/o here for hospital follow up. HOSPITAL/ER FOLLOW UP: Reason for visit: right hip replacement. Which facility: [facility] Date of visit: 07/17-07/22/18 Diagnosis: removal right cephallomedullary nail and right THR Testing done: records not available. Requested. had picture of urologist's hand writing showing creatinine of 3.3, potassium 5.4 with comparisons to preop. Treatment given: no records. Current symptoms: wants mc out. Was unable to void after surgery. Has been in a week. Told to follow up with urologist but doesn't have one. Walking several times a day. Appetite Poor but eating. Passing gas. Doing incentive spirometer. 2 Acme q4h. No BM since surgery. Says hgb dropped to 9 post-op. HISTORIES FAMILY HISTORY Problem Relation Age of Onset - Arthritis Mother - Coronary Artery Disease Mother - Diabetes Mother - Heart Mother - Hypertension Mother - Alcohol/Drug Father - Arthritis Father - Heart Father - Hypertension Father PAST MEDICAL HISTORY Diagnosis Date - Ankylosing spondylitis (HCC) - CAD (coronary artery disease) - Cellulitis - Constipation - Diabetes (HCC) - Gout - Hx of fracture multiple bones - NSTEMI (non-ST elevated myocardial infarction) [facility] 03/12/2017 [facility] admit - Osteoarthritis PAST SURGICAL HISTORY Procedure Laterality Date - CORONARY ARTERY BYPASS GRAFT 04/12/2017 x 3 - HIP SURGERY HX Right pin - KNEE ARTHROSCOPY Left x2 - KNEE SURGERY HX Right TKR, right, arthoscopy x3 - PAST SURGICAL HISTORY OF 09/07/2017 08/15/17 fx radius in 2 places; plate and screws.Plate and screws 09/07/17 [facility] - TOE SURGERY HX Right Social History Marital status: Spouse name: Yun Years of education: Number of children: 2 Social History Main Topics Smoking status: Never Smoker Smokeless tobacco: Former User Types: Chew Quit date: 04/17/2017 Alcohol use: No Comment: seldom Drug use: No Sexual activity: Yes Partners with: Female Other Topics Concern Service No Blood Transfusions No Caffeine Concern No Comment:None Occupational Exposure No Hobby Hazards No Sleep Concern No Stress Concern No Weight Concern Yes Special Diet No Back Care No Exercise No Comment:No formal Bike Helmet No Seat Belt Yes Self-Exams No ACTIVE PROBLEM LIST Uncontrolled Type 2 Diabetes Mellitus Without Complication, With Long-Term Current Use of Insulin ([facility]) Bilateral Low Back Pain Without Sciatica Chronic Constipation 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 Disp: Rfl: mometasone (ELOCON) 0.1 % cream Apply 1 application to affected area once daily. Do not use more than two weeks Disp: 45 g Rfl: 0 doxazosin (CARDURA) 4 mg tablet Take 4 mg by mouth twice daily. Disp: Rfl: 11 insulin detemir U-100 (LEVEMIR FLEXTOUCH U-100 INSULN) 100 unit/mL (3 mL) inpn injection Inject 20 Units subcutaneously daily at bedtime. (Patient taking differently: Inject 17 Units subcutaneously daily at bedtime. ) Disp: 18 mL Rfl: 3 furosemide (LASIX) 40 mg tablet Take 1 tablet by mouth once daily. Disp: Rfl: carvedilol (COREG) 25 mg tablet Take 25 mg by mouth twice daily with meals. Disp: Rfl: gabapentin (NEURONTIN) 300 mg capsule Take 1 capsule by mouth twice daily. Disp: 180 capsule Rfl: 3 HYDROcodone-acetaminophen (NORCO) 5-325 mg per tablet Take 1 tablet by mouth every 8 hours as needed. Disp: Rfl: MULTIVITAMIN/IRON/FOLIC ACID (DAILY MULTI ORAL) Take 2 Each by mouth once daily. Disp: Rfl: Tadalafil (CIALIS) 20 mg tab(s) Take 1 tablet by mouth as needed. Disp: 30 tablet Rfl: 5 pravastatin (PRAVACHOL) 80 mg tablet Take 80 mg by mouth once daily. Disp: Rfl: latanoprost (XALATAN) 0.005 % ophthalmic solution Use 1 Drop in both eyes daily at bedtime. into affected eye(s). Disp: Rfl: 0 lisinopril (ZESTRIL) 40 mg tablet Take 0.5 tablets by mouth once daily. (Patient not taking: Reported on 07/25/2018 ) Disp: Rfl: ferrous sulfate (IRON) 325 mg (65 mg iron) tablet Take 1 tablet by mouth twice daily. (Patient not taking: Reported on 07/11/2018 ) Disp: 60 tablet Rfl: 2 metOLAzone (ZAROXOLYN) 2.5 mg tablet Take 2.5 mg by mouth every other day. Disp: Rfl: aspirin, enteric coated (ASPIR-81) 81 mg EC tablet Take 1 tablet by mouth once daily. (Patient not taking: Reported on 07/11/2018 ) Disp: 90 tablet Rfl: 3 No current facility-administered medications for this visit. BP CONTROLLED (<130/80) due on 11/06/1975 HEPATITIS C SCREENING due on 2001 DILATED RETINAL EXAM due on 12/08/2017 HBA1C due on 05/03/2018 LDL CHOLESTEROL due on 08/24/2018 EXAM: BP 150/68 Pulse 60 Temp 36.4 ?C (97.6 ?F) (Tympanic) Resp 16 Pleasant adult man in no acute distress. Alert and oriented all spheres. Normal affect and cognition. Speech normal. No deficits to learning or comprehension. Color mildly pale. Skin warm, dry, pink to lips and nailbeds. Normal turgor. Respirations regular and unlabored. HEENT WNL. TM's clear. Nose and oropharynx free from injection or lesion. Oral dry. No cervical lymph nodes. Thyroid non-tender, no masses Chest CTA. HRRR without murmur or gallop. Abdomen: soft, non-tender but examined in chair. Didn't want to get on table. Right hip with intact surgical dressing, moderate edema. Also swollen over insertion upper knee. Extrem: no clubbing, cyanosis, edema. Extremities are warm and pink with prompt capillary refill. Mc intact draining clear yellow Mc removed without complication. Urine sent for culture. ASSESSMENT/PLAN: 1. GARRET (acute kidney injury) (HCC) - ICD9: 584.9, ICD10: N17.9 (primary diagnosis) Records requested but will need rechecks anyway - CBC + DIFF - BASIC METABOLIC PNL - URINALYSIS WITH MICROSCOPIC - URINE CULTURE 2. Indwelling Mc catheter present - ICD9: V53.6, ICD10: Z96.0 Removed. Push fluids. If no void by 4p come into office. - URINALYSIS WITH MICROSCOPIC - URINE CULTURE 3. Postop check - ICD9: V67.00, ICD10: Z09 Progressing as expected. 4. H/O total hip arthroplasty, right - ICD9: V43.64, ICD10: Z96.641 5. Acute blood loss as cause of postoperative anemia - ICD9: 285.1, ICD10: D62 Recheck CBC M Ghassan Davis PA-C CNOV Observed: 07/25/2018 Status: COMPLETED Source: [place] 9:40 AM [facility] REPOSITORY Office Visit (FAMPWS) MAURI QUINONES ([id number]) 1955 M Date Time Provider Department 07/25/18 9:40 AM Aditya DAVIS) ELISAWS During your visit today, we recorded the following information about you: Temperature Pulse Respiration Blood pressure 97.6 degrees 60/minute 16/minute 150/68 M Ghassan Davis PA-C 07/25/2018 1:54 PM Signed 62 year old male with c/o here for hospital follow up. HOSPITAL/ER FOLLOW UP: Reason for visit: right hip replacement. Which facility: [facility] Date of visit: 07/17-07/22/18 Diagnosis: removal right cephallomedullary nail and right THR Testing done: records not available. Requested. had picture of urologist's hand writing showing creatinine of 3.3, potassium 5.4 with comparisons to preop. Treatment given: no records. Current symptoms: wants mc out. Was unable to void after surgery. Has been in a week. Told to follow up with urologist but doesn't have one. Walking several times a day. Appetite Poor but eating. Passing gas. Doing incentive spirometer. 2 Acme q4h. No BM since surgery. Says hgb dropped to 9 post-op. HISTORIES FAMILY HISTORY Problem Relation Age of Onset - Arthritis Mother - Coronary Artery Disease Mother - Diabetes Mother - Heart Mother - Hypertension Mother - Alcohol/Drug Father - Arthritis Father - Heart Father - Hypertension Father PAST MEDICAL HISTORY Diagnosis Date - Ankylosing spondylitis ([facility]) - CAD (coronary artery disease) - Cellulitis - Constipation - Diabetes ([facility]) - Gout - Hx of fracture multiple bones - NSTEMI (non-ST elevated myocardial infarction) ([facility]) 03/12/2017 [facility] admit - Osteoarthritis PAST SURGICAL HISTORY Procedure Laterality Date - CORONARY ARTERY BYPASS GRAFT 04/12/2017 x 3 - HIP SURGERY HX Right pin - KNEE ARTHROSCOPY Left x2 - KNEE SURGERY HX Right TKR, right, arthoscopy x3 - PAST SURGICAL HISTORY OF 09/07/2017 08/15/17 fx radius in 2 places; plate and screws.Plate and screws 09/07/17 [facility] - TOE SURGERY HX Right Social History Marital status: Spouse name: Yun Years of education: Number of children: 2 Social History Main Topics Smoking status: Never Smoker Smokeless tobacco: Former User Types: Chew Quit date: 04/17/2017 Alcohol use: No Comment: seldom Drug use: No Sexual activity: Yes Partners with: Female Other Topics Concern Service No Blood Transfusions No Caffeine Concern No Comment:None Occupational Exposure No Hobby Hazards No Sleep Concern No Stress Concern No Weight Concern Yes Special Diet No Back Care No Exercise No Comment:No formal Bike Helmet No Seat Belt Yes Self-Exams No ACTIVE PROBLEM LIST Uncontrolled Type 2 Diabetes Mellitus Without Complication, With Long-Term Current Use of Insulin ([facility]) Bilateral Low Back Pain Without Sciatica Chronic Constipation 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 Disp: Rfl: mometasone (ELOCON) 0.1 % cream Apply 1 application to affected area once daily. Do not use more than two weeks Disp: 45 g Rfl: 0 doxazosin (CARDURA) 4 mg tablet Take 4 mg by mouth twice daily. Disp: Rfl: 11 insulin detemir U-100 (LEVEMIR FLEXTOUCH U-100 INSULN) 100 unit/mL (3 mL) inpn injection Inject 20 Units subcutaneously daily at bedtime. (Patient taking differently: Inject 17 Units subcutaneously daily at bedtime. ) Disp: 18 mL Rfl: 3 furosemide (LASIX) 40 mg tablet Take 1 tablet by mouth once daily. Disp: Rfl: carvedilol (COREG) 25 mg tablet Take 25 mg by mouth twice daily with meals. Disp: Rfl: gabapentin (NEURONTIN) 300 mg capsule Take 1 capsule by mouth twice daily. Disp: 180 capsule Rfl: 3 HYDROcodone-acetaminophen (NORCO) 5-325 mg per tablet Take 1 tablet by mouth every 8 hours as needed. Disp: Rfl: MULTIVITAMIN/IRON/FOLIC ACID (DAILY MULTI ORAL) Take 2 Each by mouth once daily. Disp: Rfl: Tadalafil (CIALIS) 20 mg tab(s) Take 1 tablet by mouth as needed. Disp: 30 tablet Rfl: 5 pravastatin (PRAVACHOL) 80 mg tablet Take 80 mg by mouth once daily. Disp: Rfl: latanoprost (XALATAN) 0.005 % ophthalmic solution Use 1 Drop in both eyes daily at bedtime. into affected eye(s). Disp: Rfl: 0 lisinopril (ZESTRIL) 40 mg tablet Take 0.5 tablets by mouth once daily. (Patient not taking: Reported on 07/25/2018 ) Disp: Rfl: ferrous sulfate (IRON) 325 mg (65 mg iron) tablet Take 1 tablet by mouth twice daily. (Patient not taking: Reported on 07/11/2018 ) Disp: 60 tablet Rfl: 2 metOLAzone (ZAROXOLYN) 2.5 mg tablet Take 2.5 mg by mouth every other day. Disp: Rfl: aspirin, enteric coated (ASPIR-81) 81 mg EC tablet Take 1 tablet by mouth once daily. (Patient not taking: Reported on 07/11/2018 ) Disp: 90 tablet Rfl: 3 No current facility-administered medications for this visit. BP CONTROLLED (<130/80) due on 11/06/1975 HEPATITIS C SCREENING due on 2001 DILATED RETINAL EXAM due on 12/08/2017 HBA1C due on 05/03/2018 LDL CHOLESTEROL due on 08/24/2018 EXAM: BP 150/68 Pulse 60 Temp 36.4 ?C (97.6 ?F) (Tympanic) Resp 16 Pleasant adult man in no acute distress. Alert and oriented all spheres. Normal affect and cognition. Speech normal. No deficits to learning or comprehension. Color mildly pale. Skin warm, dry, pink to lips and nailbeds. Normal turgor. Respirations regular and unlabored. HEENT WNL. TM's clear. Nose and oropharynx free from injection or lesion. Oral dry. No cervical lymph nodes. Thyroid non-tender, no masses Chest CTA. HRRR without murmur or gallop. Abdomen: soft, non-tender but examined in chair. Didn't want to get on table. Right hip with intact surgical dressing, moderate edema. Also swollen over insertion upper knee. Extrem: no clubbing, cyanosis, edema. Extremities are warm and pink with prompt capillary refill. Mc intact draining clear yellow Mc removed without complication. Urine sent for culture. ASSESSMENT/PLAN: 1. GARRET (acute kidney injury) (HCC) - ICD9: 584.9, ICD10: N17.9 (primary diagnosis) Records requested but will need rechecks anyway - CBC + DIFF - BASIC METABOLIC PNL - URINALYSIS WITH MICROSCOPIC - URINE CULTURE 2. Indwelling Mc catheter present - ICD9: V53.6, ICD10: Z96.0 Removed. Push fluids. If no void by 4p come into office. - URINALYSIS WITH MICROSCOPIC - URINE CULTURE 3. Postop check - ICD9: V67.00, ICD10: Z09 Progressing as expected. 4. H/O total hip arthroplasty, right - ICD9: V43.64, ICD10: Z96.641 5. Acute blood loss as cause of postoperative anemia - ICD9: 285.1, ICD10: D62 Recheck CBC PASTOR Whiet PA-C 07/25/2018 10:31 AM Signed [facility] as directed per prescription for pain being careful to limit to 1-2 doses a day unless it is more severe pain. Do not drive or operate dangerous machinery while on this medication. It may cause drowsiness or impair judgment and cause increased risk for falls. This medication may be habit forming if used regularly, and may cause drowsiness, so use caution. This medication may cause constipation so increase fiber and exercise if possible. Stimulant laxatives such as Pericolace or Sennekot OTC may help if needed but should not be used over long periods. If not void by 4p today, return to office. Push fluids. Aditya Davis PA-C 07/25/2018 3:03 PM Addendum Records received. 07/22/18CBC WBC 7.4, hemoglobin 9.4, hematocrit 29.6, platelet 193. Patient started out on 07/17/18 with hemoglobin of 11.7 and hematocrit of 36.9. 07/22/18 sodium 1:30, potassium 4.8, chloride 94, CO2 28, BUN 68, creatinine 3.010. Looks like her creatinine peaked at 3.36 on 07/20/18. 07/22/18 BNP was measured at 22,154, troponin 0.023 on 07/18/18. 07/19/18 urinalysis was negative. Patient's blood type is O- with negative antibody screen. 07/18/18 iron was low at 58, TIBC of 3:30, iron saturation of 18%, ferritin level 344.7 Medication reconciliation completed PASTOR Schmitz PA-C 07/25/2018 4:17 PM Signed Addended by: Aditya DAVIS PA-C on: 07/25/2018 04:17 PM Modules accepted: Orders Aditya Davis PA-C 07/26/2018 8:03 AM Signed Addended by: Aditya DAVIS PA-C on: 07/26/2018 08:03 AM Modules accepted: Orders Referring Provider: SELF [200] Allergies As of Date: 07/25/2018 Noted Allergy Reaction LYRICA (PREGABALIN) 03/23/2017 7 - Swelling Date Reviewed: 07/25/2018 Reviewed by: Caryn Simpson LPN - Fully Assessed Reason for Visit: Hospital Follow Up [177] Cmt: [facility] for hardware removal of right hip and replacement of same hip Kidney Problem [61] Cmt: since surgery Primary Visit Diagnosis:GARRET (acute kidney injury) (HCC) [N17.9] Other Visit Diagnoses:Indwelling Mc catheter present [Z96.0] Postop check [Z09] H/O total hip arthroplasty, right [Z96.641] Acute blood loss as cause of postoperative anemia [D62] Order(s):CBC + DIFF [SQCBCDIF] Order #: [id number] FUTURE BASIC METABOLIC PNL [SQBMP] Order #: [id number] FUTURE URINALYSIS WITH MICROSCOPIC [SQUAWMIC] Order #: [id number]. #:[id number] URINE CULTURE [SQURCUL] Order #: [id number]. #:[id number] insulin detemir U-100 (LEVEMIR FLEXTOUCH U-100 INSULN) 100 unit/mL (3 mL) inpn injectionInject 17 Units subcutaneously daily at bedtime.Disp: Rfl: doxazosin (CARDURA) 4 mg tabletTake 0.5 tablets by mouth twice daily.Disp: Rfl: 11 gabapentin (NEURONTIN) 600 mg tabletTake 1 tablet by mouth once daily for 30 days.Disp: 30 tabletRfl: 0 HYDROcodone-acetaminophen (NORCO) 5-325 mg per tabletTake 1 tablet by mouth every 6 hours as needed for Pain for up to 7 days. Written q4h per surgeon Earliest Fill Date: 07/26/18Disp: 20 tabletRfl: 0 Prescriptions as of 07/25/2018 Sig: TAMSULOSIN 0.4 MG CAPSULE Take 0.4 mg by mouth daily at* INSULIN DETEMIR (U-100) 100 U* Inject 17 Units subcutaneousl* DOXAZOSIN 4 MG TABLET Take 0.5 tablets by mouth twi* MOMETASONE 0.1 % TOPICAL CREAM Apply 1 application to affect* FUROSEMIDE 40 MG TABLET Take 1 tablet by mouth once d* CARVEDILOL 25 MG TABLET Take 25 mg by mouth twice rafita* DAILY MULTI ORAL Take 2 Each by mouth once rafita* TADALAFIL 20 MG TABLET Take 1 tablet by mouth as nee* PRAVASTATIN 80 MG TABLET Take 80 mg by mouth once jagdeep* LATANOPROST 0.005 % EYE DROPS Use 1 Drop in both eyes daily* GABAPENTIN 600 MG TABLET Take 1 tablet by mouth once d* HYDROCODONE 5 MG-ACETAMINOPHE* Take 1 tablet by mouth every * METOLAZONE 2.5 MG TABLET Take 2.5 mg by mouth every ot* ASPIRIN 81 MG TABLET,DELAYED * Take 1 tablet by mouth once d* Patient not taking: Reported on 07/11/2018 Problem List As Of Date 07/25/2018 Noted Resolved Uncontrolled type 2 diabetes mellitus without c*INVALID FOR* More... 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 Hypertension, essential [I10] INVALID FOR* Lower leg edema [R60.0] INVALID FOR* More... Chronic left hip pain [M25.552, G89.29] INVALID FOR* Anemia of chronic renal failure, stage 3 (moder*INVALID FOR* Acute on chronic diastolic congestive heart zane*INVALID FOR* Recurrent right pleural effusion [J90] INVALID FOR* PVD (peripheral vascular disease) ([facility]) [I73.9] INVALID FOR* More... Other instructions from your clinician: [facility]me as directed per prescription for pain being careful to limit to 1-2 doses a day unless it is more severe pain. Do not drive or operate dangerous machinery while on this medication. It may cause drowsiness or impair judgment and cause increased risk for falls. This medication may be habit forming if used regularly, and may cause drowsiness, so use caution. This medication may cause constipation so increase fiber and exercise if possible. Stimulant laxatives such as Pericolace or Sennekot OTC may help if needed but should not be used over long periods. If not void by 4p today, return to office. Push fluids. Prescriptions ordered this encounter Disp Refills Start End INSULIN DETEMIR (U-100) 100 UNIT/ML * 07/25/2018 08/24/2018 Class: Med Update Route: SUBCUTANEOUS Sig: Inject 17 Units subcutaneously daily at bedtime. DOXAZOSIN 4 MG TABLET 11 07/25/2018 Class: Med Update Route: ORAL Sig: Take 0.5 tablets by mouth twice daily. GABAPENTIN 600 MG TABLET 30 t* 0 07/26/2018 08/25/2018 Class: Med Update Route: ORAL Sig: Take 1 tablet by mouth once daily for 30 days. HYDROCODONE 5 MG-ACETAMINOPHEN 325 M* 20 t* 0 07/26/2018 08/02/2018 Class: Med Update Route: ORAL Sig: Take 1 tablet by mouth every 6 hours as needed for Pain for up to 7 days. Written q4h per surgeon Earliest Fill Date: 07/26/18 Medications Discontinued During This Encounter insulin detemir U-100 (LEVEMIR FLEXT* 18 mL 3 02/25/2018 07/25/2018 Route: SUBCUTANEOUS Sig: Inject 20 Units subcutaneously daily at bedtime. Patient taking differently: Inject 17 Units subcutaneously daily at bedtime. Disc: Adjust Sig - Block E-Cancel gabapentin (NEURONTIN) 300 mg capsule 180 * 3 02/04/2018 07/25/2018 Route: ORAL Sig: Take 1 capsule by mouth twice daily. Disc: Reason for discontinue is not on file. HYDROcodone-acetaminophen (NORCO) 5-* 07/25/2018 Class: Historical Med Route: ORAL Sig: Take 1 tablet by mouth every 8 hours as needed. Disc: Reason for discontinue is not on file. doxazosin (CARDURA) 4 mg tablet 11 02/25/2018 07/25/2018 Class: Historical Med Route: ORAL Sig: Take 4 mg by mouth twice daily. Disc: Adjust Sig - Block E-Cancel lisinopril (ZESTRIL) 40 mg tablet 07/14/2018 07/25/2018 Class: Med Update Route: ORAL Sig: Take 0.5 tablets by mouth once daily. Patient not taking: Reported on 07/25/2018 Disc: Reason for discontinue is not on file. ferrous sulfate (IRON) 325 mg (65 mg* 60 t* 2 03/05/2018 07/25/2018 Route: ORAL Sig: Take 1 tablet by mouth twice daily. Patient not taking: Reported on 07/11/2018 Disc: Reason for discontinue is not on file. Disposition: Return in about 4 weeks (around 08/22/2018). Follow-up and Disposition History Recorded Encounter Status:Closed by Aditya DAVIS PA-C on 07/25/18 DISCH.SUM Observed: 07/23/2018 Status: UNK Source: [facility] 1:01 PM CENTER [facility]: [facility] Date of : [address], [place] [address] Unit Number: [id number] Discharge Summary Patient Status: DIS IN Attending Doctor: Jensen Peguero DO Service Date: 07/23/18 1301 Discharge Summary Admit Date Admission Date Time: 07/17/18 0600 Anticipated Discharge Date 07/22/18 Final Dx/Problem List 1. IDDM (insulin dependent diabetes mellitus) Chronic 2. Coronary artery disease Chronic 3. Chronic renal disease, stage III 4. Hyperlipidemia 5. Hypertension Chronic 6. Systolic heart failure Chronic 7. Arthritis Chronic Chief Complaint/HPI right hip pain Reason for Admission Scheduled removal of right cephallomedullary nail and right total hip arthroplasty Operations/Procedures Removal of cephallomedullary nail and right total hip arthroplasty Hospital Course Patient is a 62-year-old male who presented to [facility] on 07/17/2018 for a scheduled cephallomedullary nail removal and right total hip arthroplasty by Dr. Peguero. On the day of his surgery on 07/17/2018, he tolerated the procedure well without complications. On postop day 1, patient admitted to urinary retention requiring straight catheterization. He reported that this is a common problem for him after surgery. Over the next few days of his hospital stay, he developed mild hyponatremia and his kidney function decreased demonstrating acute kidney injury on chronic kidney disease stage 3. Hospitalist was medically managing the patient throughout his stay, and nephrology was consulted, who concluded these chemistry abnormalities were likely due to obstructive uropathy and/or diuretic-induced mild volume depletion. Mc catheter was placed, which was removed on 07/22/18. The patient was discharged on 07/22/18 after he passed his void trial and his chemistry values normalized to his baseline. He will remain weightbearing as tolerated in the right lower extremity. He will continue DVT prophylaxis and pain control. DVT prophylaxis, pain control, and physical therapy. He will follow up with his PCP, his urologist, and Dr. Peguero within 1-2 weeks. Vital Signs Vital Signs (Last) Result Date Time Pulse Ox 96 07/22 1540 B/P 143/62 07/22 0815 Temp 98.0 07/22 0815 Pulse 63 07/22 0815 Resp 16 07/22 0815 O2 Delivery NASAL CANNULA 07/18 0440 O2 Flow Rate 2 07/18 0440 Pertinent Physical Findings Genera: NAD, cooperative MSK: RLE: No ecchymosis or gross deformities of the hip. Incision dressings are clean, dry, intact, minimally saturated. SILT L2-S1 b/l. Motor strength 5/5 knee extension, knee flexion, ankle dorsiflexion, ankle plantar flexion , great toe flexion, great toe extension. 3/5 hip flexion. DP and PT pulses 2+ b/l Consults Internal Medicine, Nephrology Labs/Imaging Lab 72hr (CBC/BMP [facility]) 07/23/18 0600: Sodium Cancelled, Potassium Cancelled, Chloride Cancelled, Carbon Dioxide Cancelled, Anion Gap Cancelled, BUN Cancelled, Creatinine Cancelled, BUN/Creatinine Ratio Cancelled, Glucose Cancelled, Total Calcium Cancelled 07/22/18 1558: Whole Bld Glucose 125 07/22/18 1110: Whole Bld Glucose 84 L 07/22/18 0625: Whole Bld Glucose 85 07/22/18 0531: [Embedded Image Not Available] Anion Gap 8, Est GFR ( Amer) 26, Est GFR (Non-Af Amer) 21, BUN/Creatinine Ratio 22, Glucose 74, Total Calcium 7.4 L, Eck-H-Bnkglsqpphn Pept [id number] H 07/21/18 2034: Whole Bld Glucose 138 H 07/21/18 1620: Whole Bld Glucose 193 H 07/21/18 1121: Whole Bld Glucose 138 H 07/21/18 0634: Whole Bld Glucose 73 L 07/21/18 0546: [Embedded Image Not Available] Anion Gap 8, Est GFR ( Amer) 23, Est GFR (Non-Af Amer) 19, BUN/Creatinine Ratio 21, Glucose 74, Total Calcium 7.6 L 07/20/18 2145: [Embedded Image Not Available] Anion Gap 8, Est GFR ( Amer) 24, Est GFR (Non-Af Amer) 19, BUN/Creatinine Ratio 21, Glucose 154 H, Total Calcium 7.5 L 07/20/18 2055: Whole Bld Glucose 197 H 07/20/18 1839: Urine Osmolality 237 07/20/18 1619: Whole Bld Glucose 155 H 07/20/18 1558: [Embedded Image Not Available] Serum Osmolality 297, Pfr-U-Ugafebpvzuv Pept 98879 H, Thyroxine (T4) 8.5, T3 Uptake 38.0, TSH, Ultra Sensitive 1.150 Recent Impressions (72hr) RADIOLOGY - PORTABLE CHEST 07/22 0500 Report Impression - Status: SIGNED Entered: 07/22/2018 0721 IMPRESSION: 1. Cardiomegaly with borderline congestion. 2. Trace bilateral effusions. Impression By: LOAN GUERRERO M.D. Prescriptions Stop taking the following medications: Aspirin* (Aspir 81 MG Tab*) 81 MG TABLET.DR ORAL DAILY WITH A MEAL Metolazone* (zaroXOLYN 2.5MG TAB*) 2.5 MG TABLET ORAL SUN/ Celecoxib* (celeBREX 200MG CAP*) 200 MG CAPSULE ORAL NEEDED as needed for PAIN Lisinopril* (Zestril 20MG Tab*) 20 MG TABLET ORAL EVERY DAY Tramadol HCl* (Ultram 50MG Tab*) 50 MG TABLET ORAL TID,PRN Continue taking these medications: Carvedilol (Carvedilol) 25 MG TABLET 25 MILLIGRAM ORAL 2 TIMES DAILY Pravastatin Sod* (Pravachol 80MG Tab*) 80 MG TABLET 80 MILLIGRAM ORAL AT BEDTIME Doxazosin Mesylate* (Cardura 2MG Tab*) 2 MG TABLET 2 MILLIGRAM ORAL 2 TIMES DAILY Insulin Detemir (Levemir Flextouch Pen) 100 UNIT/1 ML INSULN.PEN 17 UNITS SUBCUTANEOUS* AT BEDTIME Latanoprost* (Xalatan 0.005% Eye Drop*) 2.5 ML DROPS 1 GTT EACH EYE* AT BEDTIME Tadalafil (Cialis) 20 MG TABLET 20 MILLIGRAM ORAL NEEDED as needed for . Gabapentin* (Neurontin Tab*) 600 MG TABLET 600 MILLIGRAM ORAL AT BEDTIME Furosemide* (Lasix 40MG Tab*) 40 MG TABLET 60 MILLIGRAM ORAL TWICE A DAY BEFORE MEALS Start taking the following new medications: Hydrocodone Bit/Acetaminophen (Acme 5-325 Tablet) 1 EACH TABLET 1 EACH ORAL EVERY 4 HOURS NEEDED as needed for Moderate to Severe Pain Days = 5 Qty = 20 No Refills Tamsulosin HCl (Flomax 0.4 MG Capsule) 0.4 MG CAP 0.4 MILLIGRAM ORAL DAILY AFTER A MEAL Qty = 30 Refills = 3 Orders New Orders: BASIC METABOLIC PANE Svc Date: In Two-Three days Referrals Ordered Referrals Medicine In Two-Three... For Providers: Blade Gould [address] [place] [address] Additional Instructions Do not adduct and internally rotate right hip as instructed Condition: Stable, Good Disposition Home w/ Home Health Care Disclaimer This dictation was created using voice recognition software. Phonetic and/or minor grammatical errors may exist. eSign Date and Time Yaya Boone DO Verified/Reviewed by 07/23/18 1309 Jensen Peguero DO GLUCOSE METER Collected: 07/22/2018 Status: F Source: [facility] 3:58 PM [facility] REPOSITORY TYPE CODE TESTS RESULT OUT OF RANGE REFERENCE UNITS LAB [id number] 85-125 MG/DL Normal GLUCOSE METER 125 PROG IMS Observed: 07/22/2018 Status: UNK Source: [facility] 2:31 PM [facility] REPOSITORY [facility] Patient Name: MAURI QUINONES [address] [employer] Date of : [address], [place] [address] Unit Number: [id number] Progress Note-Hospitalist Patient Status: ADM IN Attending Doctor: Jensen Peguero DO Service Date: 07/22/18 1431 Chief Complaint Chief Complaint Right hip pain Subjective S: (2 ROS minimum) Remained asymptomatic with no chest pain or shortness of breath. Objective (ROS) Nursing Vitals Vital Signs (Last) Result Date Time Pulse Ox 96 07/22 0815 B/P 143/62 07/22 08 Temp 98.0 07/22 0815 Pulse 63 07/22 0815 Resp 16 07/22 0815 O2 Delivery NASAL CANNULA 07/18 0440 O2 Flow Rate 2 07/18 0440 General Appearance Comfortable Physical Exam Physical Examination Notes Neurological / Psychiatric Alert, Orientation X3 HEENT EOMI, PERRL Neck No JVD, No Enlarged Thyroid Respiratory Normal Breathing Effort, Clear Lungs Cardiovascular Heart RRR, No M / R / G Gastrointestinal Normal Bowel Sounds, Non Tender Musculoskeletal No Edema Skin No Rash, Warm / Dry Diagnostic Data: Medications Current Sig/Cipriano Start time Last Medication Dose Route Stop Time Status Admin Al Hydrox/Mg Hydrox/ 30 ML Q4HPRN PRN 07/17 1100 AC Simethicone PO (MAALOX (ALAMAG)PLUS ORAL LIQ) Aspirin 162 MG QDAYWM 07/18 0800 AC 07/22 (ECOTRIN TAB.EC) PO 0748 Diphenhydramine HCl 25 MG Q6HPRN PRN 07/17 1100 AC (BENADRYL CAP) PO Docusate Calcium 240 MG Q12H@21 07/17 2100 AC 07/22 (SURFAK CAP) PO 0851 Doxazosin Mesylate 2 MG BID 07/17 2100 AC 07/22 (CARDURA TAB) PO 0851 Enoxaparin Sodium 40 MG Q24H 07/18 0900 AC 07/22 (LOVENOX D.SYR) SC 0852 Furosemide 60 MG BID.30AC 07/22 1145 AC 07/22 (LASIX TAB) PO 1138 Gabapentin 600 MG QHS 07/17 2200 AC 07/21 (NEURONTIN CAP) PO 2036 Hydrocodone Bitart/ 1 EACH Q4HPRN PRN 07/19 1430 AC Acetaminophen PO (NORCO 5-325 TAB) Hydrocodone Bitart/ 2 EACH Q4HPRN PRN 07/19 1430 AC 07/22 Acetaminophen PO 1353 (NORCO 5-325 TAB) Hydromorphone HCl 2 MG Q3HPRN PRN 07/17 1100 AC (DILAUDID D.SYR) IM Insulin Glargine 17 UNITS QHS 07/18 2200 AC 07/21 (LANTUS SOLOSTAR PEN) SC 203 Insulin Human Lispro See Dose WMHS 07/17 2200 AC 07/21 (humaLOG/novoLOG PEN) Insts (1) SC 1642 Latanoprost 1 GTT QHS 07/17 2200 AC 07/21 (XALATAN 0.005% OPTH OU 2038 DROP) Pantoprazole Sodium 40 MG QDAYAC 07/18 0700 AC 07/22 (PROTONIX TAB) PO 06 Pravastatin Sodium 80 MG QHS 07/17 2200 AC 07/21 (PRAVACHOL TAB) PO 203 Sodium Chloride 3 ML Q8H 07/17 1400 AC 07/21 (Sodium Chloride IV 0637 0.9% FLUSH D.SYR) Sodium Chloride 3 ML PRN PRN 07/17 1100 AC (Sodium Chloride IV 0.9% FLUSH D.SYR) Tamsulosin HCl 0.4 MG QDAYPC 07/21 1030 AC 07/22 (FLOMAX CAP) PO 0851 Trimethobenzamide HCl 200 MG Q6HPRN PRN 07/17 1100 AC (TIGAN VIAL) IM Zolpidem Tartrate 5 MG QHSPRN PRN 07/17 1100 AC (AMBIEN TAB) PO Dose Instructions: (1)Insulin Human Lispro (humaLOG/novoLOG PEN): 2-10 Units Lab 24hr (CBC/BMP [facility]) 07/22/18 1110: Whole Bld Glucose 84 L 07/22/18 0625: Whole Bld Glucose 85 07/22/18 0531: [Embedded Image Not Available] Anion Gap 8, Est GFR ( Amer) 26, Est GFR (Non-Af Amer) 21, BUN/Creatinine Ratio 22, Glucose 74, Total Calcium 7.4 L, Ezl-T-Taudcerofnz Pept 11543 H 07/21/18 2034: Whole Bld Glucose 138 H 07/21/18 1620: Whole Bld Glucose 193 H Assessment and Plan Conclusion 1. Urinary retention Acute Plan to remove Mc catheter and voiding trial today, if failed patient will require a Mc catheter at home. Continue with the Flomax. 2. Hyponatremia Acute Likely related to volume overload seems to be improving with Lasix. Restarted on oral Lasix 60 mg twice daily. 3. Acute renal failure superimposed on stage 3 chronic kidney disease Acute Secondary to volume overload. Improving creatinine with Lasix. Outpatient BMP for follow-up of the kidney function. 4. Arthritis Chronic To the right hip status post surgical intervention. 5. Systolic heart failure Chronic With acute and chronic component that could be started the day after the surgery but apparently was not presented on admission. Continue with Lasix 60 mg orally twice daily. Continue holding lisinopril and Zaroxolyn. 6. Coronary artery disease Chronic No acute issue. 7. Hypertension Chronic Stable blood pressure, avoid hypotension. 8. IDDM (insulin dependent diabetes mellitus) Chronic Continue with Lantus and sliding scale insulin. 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 Disclaimer This dictation was created using voice recognition software. Phonetic and/or minor grammatical errors may exist. eSign Date and Time Sigrid Hodge MD Verified/Reviewed by 07/22/18 1441 PROG.NEPH Observed: 07/22/2018 Status: UNK Source: [facility] 11:52 AM [facility] [place] [facility] Patient Name: MAURI QUINONES [address] Date of : [address] [place] [address] Unit Number: [id number] Progress Note-Nephrology Patient Status: ADM IN Attending Doctor: Jensen Peguero DO Service Date: 07/22/18 1152 Progress Note-Nephrology([facility]) Subjective Subjective: Seen and examined. Up in a chair. Overall feels better. No acute events overnight Objective Vital Signs: Vital Signs (Last) Result Date Time Pulse Ox 96 07/22 815 B/P 143/62 07/22 08 Temp 98.0 07/22 08 Pulse 63 07/22 0815 Resp 16 07/22 0815 O2 Delivery NASAL CANNULA 07/18 0440 O2 Flow Rate 2 07/18 0440 IandO 24 Hour Summary 07/22 0000 Intake Total 2670 Output Total 2700 Balance -30 Intake, IV 120 Intake, Oral 2550 Output, Stool 0 Output, Urine 2700 Exam: Lungs-clear Heart-regular Lower extremity-no edema Medications: Medications Current Sig/Cipriano Start time Last Medication Dose Route Stop Time Status Admin Al Hydrox/Mg Hydrox/ 30 ML Q4HPRN PRN 07/17 1100 AC Simethicone PO (MAALOX (ALAMAG)PLUS ORAL LIQ) Aspirin 162 MG QDAYWM 07/18 0800 AC 07/22 (ECOTRIN TAB.EC) PO 0748 Diphenhydramine HCl 25 MG Q6HPRN PRN 07/17 1100 AC (BENADRYL CAP) PO Docusate Calcium 240 MG Q12H@21 07/17 2100 AC 07/22 (SURFAK CAP) PO 0851 Doxazosin Mesylate 2 MG BID 07/17 2100 AC 07/22 (CARDURA TAB) PO 0851 Enoxaparin Sodium 40 MG Q24H 07/18 0900 AC 07/22 (LOVENOX D.SYR) SC 0852 Furosemide 60 MG BID.30AC 07/22 1145 AC 07/22 (LASIX TAB) PO 1138 Gabapentin 600 MG QHS 07/17 2200 AC 07/21 (NEURONTIN CAP) PO 2037 Hydrocodone Bitart/ 1 EACH Q4HPRN PRN 07/19 1430 AC Acetaminophen PO (NORCO 5-325 TAB) Hydrocodone Bitart/ 2 EACH Q4HPRN PRN 07/19 1430 AC 07/22 Acetaminophen PO 0710 (NORCO 5-325 TAB) Hydromorphone HCl 2 MG Q3HPRN PRN 07/17 1100 AC (DILAUDID D.SYR) IM Insulin Glargine 17 UNITS QHS 07/18 2200 AC 07/21 (LANTUS SOLOSTAR PEN) SC 2037 Insulin Human Lispro See Dose WMHS 07/17 2200 AC 07/21 (humaLOG/novoLOG PEN) Insts (1) SC 164 Latanoprost 1 GTT QHS 07/17 220 AC 07/21 (XALATAN 0.005% OPTH OU 2038 DROP) Pantoprazole Sodium 40 MG QDAYAC 07/18 0700 AC 07/22 (PROTONIX TAB) PO 06 Pravastatin Sodium 80 MG QHS 07/17 2200 AC 07/21 (PRAVACHOL TAB) PO 203 Sodium Chloride 3 ML Q8H 07/17 1400 AC 07/21 (Sodium Chloride IV 0637 0.9% FLUSH D.SYR) Sodium Chloride 3 ML PRN PRN 07/17 1100 AC (Sodium Chloride IV 0.9% FLUSH D.SYR) Tamsulosin HCl 0.4 MG QDAYPC 07/21 1030 AC 07/22 (FLOMAX CAP) PO 0851 Trimethobenzamide HCl 200 MG Q6HPRN PRN 07/17 1100 AC (TIGAN VIAL) IM Zolpidem Tartrate 5 MG QHSPRN PRN 07/17 1100 AC (AMBIEN TAB) PO Dose Instructions: (1)Insulin Human Lispro (humaLOG/novoLOG PEN): 2-10 Units Radiology Impressions: Recent Impressions (LAST) ULTRASOUND - US KIDNEY 07/19 1150 Report Impression - Status: SIGNED Entered: 07/19/2018 194 IMPRESSION: Normal renal ultrasound. No abnormal distention. Impression By: MJ ELIZABETH M.D. RADIOLOGY - PORTABLE CHEST 07/22 0500 Report Impression - Status: SIGNED Entered: 07/22/2018 0721 IMPRESSION: 1. Cardiomegaly with borderline congestion. 2. Trace bilateral effusions. Impression By: LOAN GUERRERO M.D. Lab Results: Lab 24hr (CBC/BMP Matias) 07/22/18 1110: Whole Bld Glucose 84 L 07/22/18 0625: Whole Bld Glucose 85 07/22/18 0531: [Embedded Image Not Available] Anion Gap 8, Est GFR ( Amer) 26, Est GFR (Non-Af Amer) 21, BUN/Creatinine Ratio 22, Glucose 74, Total Calcium 7.4 L, Jon-V-Rismpsfnrth Pept 21091 H 07/21/18 2034: Whole Bld Glucose 138 H 07/21/18 1620: Whole Bld Glucose 193 H Assessment/Plan Assessment/Problem List: 1. Acute renal failure superimposed on stage 3 chronic kidney disease Acute o creatinine better today; stable electrolytes o clinically appears euvolemic o continue p.o. Lasix o continue to hold VANESSA inhibitor until GARRET resolves o DC Mc catheter; voiding trial; check PVR later this afternoon. Okay to DC if < 250 ml. Continue Flomax o okay to DC today from my standpoint o outpatient follow-up with me in 2-3 weeks 2. Hyponatremia Acute o probably hypervolemic o improving o continue diuretics 3. Hypertension Chronic o stable on current medication o low-sodium diet 4. Urinary retention Acute o voiding trial; if fails, DC to home with Mc catheter and urology follow-up o continue Flomax Communication Today with: Discussed with nursing staff Disclaimer This dictation was created using voice recognition software. Phonetic and/or minor grammatical errors may exist. eSign Date and Time Jameson Sullivan MD Verified/Reviewed by 07/22/18 1157 GLUCOSE METER Collected: 07/22/2018 Status: F Source: [facility] 11:10 AM [facility] TYPE CODE TESTS RESULT OUT OF REFERENCE UNITS RANGE LAB L500.21664 85-125 MG/DL Low GLUCOSE METER 84 PROG.ORTHO Observed: 07/22/2018 Status: UNK Source: [facility] 9:44 AM [facility] REPOSITORY [facility] Patient Name: MAURI QUINONES [address] Date of : [address] [place] [address] Unit Number: [id number] Progress Note-Ortho Patient Status: ADM IN Attending Doctor: Jensen Peguero DO Service Date: 07/22/18943 Progress Note - Ortho Subjective S: (2 ROS minimum) Patient seen and examined, continues to do very well. He is only complaining of minimal pain in his right hip that is well controlled with oral pain medications. Objective Nursing Vitals Vital Signs (Last) Result Date Time Pulse Ox 95 07/21 2320 B/P 152/74 07/21 2320 Temp 98.4 07/21 2320 Pulse 65 07/21 2320 Resp 18 07/21 2320 O2 Delivery NASAL CANNULA 07/18 440 O2 Flow Rate 2 07/18 440 Physical Exam General: Alert and oriented x3, no acute distress LE: SILT L2-S1 5/5 strength with DF/PF/EHL 2+ distal pulses - calf tenderness Dressing clean, dry, intact Diagnostic Data Lab 24hr (CBC/BMP [facility]) 07/22/18 0625: Whole Bld Glucose 85 07/22/18 0531: [Embedded Image Not Available] Anion Gap 8, Est GFR ( Amer) 26, Est GFR (Non-Af Amer) 21, BUN/Creatinine Ratio 22, Glucose 74, Total Calcium 7.4 L, Jib-X-Syyhilaqtry Pept 23244 H 07/21/18 2034: Whole Bld Glucose 138 H 07/21/18 1620: Whole Bld Glucose 193 H 07/21/18 1121: Whole Bld Glucose 138 H Assessment/Plan Conclusion 1. Arthritis Chronic Patient is postop day 5 from right total hip arthroplasty. From an orthopedic standpoint he is doing very well. He has been ambulating without difficulty. His creatinine is slightly improved to 3.0 from 3.2 yesterday. We will continue to monitor nephrology recommendations. Continue PT and OT. 2. Acute renal failure superimposed on stage 3 chronic kidney disease Acute 3. Urinary retention Acute Disclaimer This dictation was created using voice recognition software. Phonetic and/or minor grammatical errors may exist. eSign Date and Time Blade Mendoza DO Verified/Reviewed by 07/22/18946 Jensen Peguero DO GLUCOSE METER Collected: 07/22/2018 Status: F Source: [facility] 6:25 AM [facility] [place] REPOSITORY TYPE CODE TESTS RESULT OUT OF RANGE REFERENCE UNITS LAB L500.07108 85-125 MG/DL Normal GLUCOSE METER 85 BMP Collected: 07/22/2018 Status: F Source: [facility] 5:31 AM [facility] REPOS[facility] Order Comment: Kountze: M TYPE CODE TESTS RESULT OUT OF RANGE REFERENCE UNITS LAB L500.73148 136-145 MMOL/L Low NA 130 LAB L500.82283 3.5-5.1 MMOL/L Normal K 4.8 LAB L500.94885 98-107 MMOL/L Low CL 94 LAB L500.79929 21-32 MMOL/L Normal CO2 28 LAB L500.94618 5-16 MMOL/L Normal AGAP 8 LAB L500.07213 70-100 MG/DL Normal GLU 74 Result Comment: 70-100- Normal Fasting; 100-125 Impaired Fasting; greater than 126 on more than one result- Diabetes. ADA guidelines. Results may be falsely elevated after the administration of Sulfapyridine. Results may be falsely depressed after the administration of Sulfasalazine. LAB L500.23183 7-26 MG/DL High BUN 68 LAB L500.00399 0.670-1.170 MG/DL High CREAT 3.010 Result Comment: Patients receiving either N-Acetylcysteine (NAC) or Metamizole prior to venipuncture, may have falsely depressed results. LAB L500.56930 15-24 Normal BUN/CREA 22 LAB L500.72332 8.5-10.1 MG/DL Low CALCIUM TOTAL 7.4 Performed By: #### L500.79000, L500.44057, L500.81571 #### [facility] [address] [place] [address] GFR EST Collected: 07/22/2018 Status: F Source: [facility] 5:31 AM [place] REPOSITORY Order Comment: Kountze: M TYPE CODE TESTS RESULT OUT OF RANGE REFERENCE UNITS LAB L500.37720 ML/MIN Normal IF non-AFR 21 AMER LAB L500.40304 ML/MIN Normal IF 26 AMER Performed By: #### L500.59468, L500.51121, L500.77204 #### [facility] [address] [place] [address] PBNP TEST Collected: 07/22/2018 Status: F Source: [facility] 5:31 AM [facility] REPOS[facility] Order Comment: [facility]ount[facility]: M TYPE CODE TESTS RESULT OUT OF RANGE REFERENCE UNITS LAB L500.94061 0-900 PG/ML High PBNP TEST 35987 Result Comment: NT-proBNP results of less than 300 pg/ml effectively rules out acute congestive heart failure with 99% negative predictive value. Performed By: #### L500.03676, L500.26656, L500.98025 #### [facility] [place] [address] GLUCOSE METER Collected: 07/21/2018 Status: F Source: [facility] 8:34 PM [facility] REPOSIT[facility] TYPE CODE TESTS RESULT OUT OF REFERENCE UNITS RANGE LAB L500.13381 85-125 MG/DL High GLUCOSE METER 138 GLUCOSE METER Collected: 07/21/2018 Status: F Source: [facility] 4:20 PM [facility] REPOSIT[facility] TYPE CODE TESTS RESULT OUT OF REFERENCE UNITS RANGE LAB L500.44570 85-125 MG/DL High GLUCOSE METER 193 PROG IMS Observed: 07/21/2018 Status: UNK Source: [facility] 2:41 PM [facility] REPOSIT[facility] Patient Name: MAURI QUINONES [address] [facility] Date of : [address] [place] [address] Unit Number: [id number] Progress Note-Hospitalist Patient Status: ADM IN Attending Doctor: Jensen Peguero DO Service Date: 07/21/18 1441 Chief Complaint Chief Complaint Right hip pain Subjective S: (2 ROS minimum) Patient remained stable with no chest pain or shortness of breath, denied any abdominal pain nausea vomiting or diarrhea. Objective (ROS) Nursing Vitals Vital Signs (Last) Result Date Time Pulse Ox 97 07/21 0745 B/P 139/67 07/21 745 Temp 98.6 07/21 0745 Pulse 58 07/21 0745 Resp 17 07/21 07 O2 Delivery NASAL CANNULA 07/18 440 O2 Flow Rate 2 07/18 044 General Appearance Comfortable Physical Exam Physical Examination Notes Neurological / Psychiatric Alert, Orientation X3 HEENT EOMI, PERRL Neck No JVD, No Enlarged Thyroid Respiratory Normal Breathing Effort, Clear Lungs Cardiovascular Heart RRR, No M / R / G Gastrointestinal Normal Bowel Sounds, Non Tender Musculoskeletal No Edema Skin No Rash, Warm / Dry Diagnostic Data: Medications Current Sig/Cipriano Start time Last Medication Dose Route Stop Time Status Admin Al Hydrox/Mg Hydrox/ 30 ML Q4HPRN PRN 07/17 1100 AC Simethicone PO (MAALOX (ALAMAG)PLUS ORAL LIQ) Aspirin 162 MG QDAYWM 07/18 0800 AC 07/21 (ECOTRIN TAB.EC) PO 075 Diphenhydramine HCl 25 MG Q6HPRN PRN 07/17 1100 AC (BENADRYL CAP) PO Docusate Calcium 240 MG Q12H@21 07/17 2100 AC 07/21 (SURFAK CAP) PO 075 Doxazosin Mesylate 2 MG BID 07/17 2100 AC 07/21 (CARDURA TAB) PO 075 Enoxaparin Sodium 40 MG Q24H 07/18 0900 AC 07/21 (LOVENOX D.SYR) SC 075 Gabapentin 600 MG QHS 07/17 2200 AC 07/20 (NEURONTIN CAP) PO 2058 Hydrocodone Bitart/ 1 EACH Q4HPRN PRN 07/19 1430 AC Acetaminophen PO (NORCO 5-325 TAB) Hydrocodone Bitart/ 2 EACH Q4HPRN PRN 07/19 1430 AC 07/21 Acetaminophen PO 0755 (NORCO 5-325 TAB) Hydromorphone HCl 2 MG Q3HPRN PRN 07/17 1100 AC (DILAUDID D.SYR) IM Insulin Glargine 17 UNITS QHS 07/18 2200 AC 07/20 (LANTUS SOLOSTAR PEN) SC 2100 Insulin Human Lispro See Dose WMHS 07/17 2200 AC 07/20 (humaLOG/novoLOG PEN) Insts (1) SC 2100 Latanoprost 1 GTT QHS 07/17 2200 AC 07/20 (XALATAN 0.005% OPTH OU 2057 DROP) Pantoprazole Sodium 40 MG QDAYAC 07/18 0700 AC 07/21 (PROTONIX TAB) PO 06 Pravastatin Sodium 80 MG QHS 07/17 2200 AC 07/20 (PRAVACHOL TAB) PO 2057 Sodium Chloride 3 ML Q8H 07/17 1400 AC 07/21 (Sodium Chloride IV 0637 0.9% FLUSH D.SYR) Sodium Chloride 3 ML PRN PRN 07/17 1100 AC (Sodium Chloride IV 0.9% FLUSH D.SYR) Tamsulosin HCl 0.4 MG QDAYPC 07/21 1030 AC 07/21 (FLOMAX CAP) PO 1026 Trimethobenzamide HCl 200 MG Q6HPRN PRN 07/17 1100 AC (TIGAN VIAL) IM Zolpidem Tartrate 5 MG QHSPRN PRN 07/17 1100 AC (AMBIEN TAB) PO Dose Instructions: (1)Insulin Human Lispro (humaLOG/novoLOG PEN): 2-10 Units Lab 24hr (CBC/BMP [facility]) 07/21/18 1121: Whole Bld Glucose 138 H 07/21/18 0634: Whole Bld Glucose 73 L 07/21/18 0546: [Embedded Image Not Available] Anion Gap 8, Est GFR ( Amer) 23, Est GFR (Non-Af Amer) 19, BUN/Creatinine Ratio 21, Glucose 74, Total Calcium 7.6 L 07/20/18 2145: [Embedded Image Not Available] Anion Gap 8, Est GFR ( Amer) 24, Est GFR (Non-Af Amer) 19, BUN/Creatinine Ratio 21, Glucose 154 H, Total Calcium 7.5 L 07/20/18 2055: Whole Bld Glucose 197 H 07/20/18 1839: Urine Osmolality 237 07/20/18 1619: Whole Bld Glucose 155 H 07/20/18 1558: [Embedded Image Not Available] Serum Osmolality 297, Bgs-L-Ohhpjdaffqr Pept 45277 H, Thyroxine (T4) 8.5, T3 Uptake 38.0, TSH, Ultra Sensitive 1.150 Assessment and Plan Conclusion 1. Urinary retention Acute Status post Mc catheter placement. Continue with the Flomax. Patient should be referred to urologist for outpatient voiding trial. 2. Hyponatremia Acute Did not improve with IV fluids and initially neither with IV Lasix yesterday. Based on the chest x-ray and elevated BNP, patient could have mild volume overload that is not clinically obvious. We will try another dose of IV Lasix today, strict I's and O's and daily weight and watch sodium level closely. 3. Acute renal failure superimposed on stage 3 chronic kidney disease Acute Based on the chest x-ray and elevated BNP, worsening kidney function could be related to mild volume overload not dehydration or volume depletion. Was giving 1 dose of Lasix yesterday patient diuresed 2 L of urine however the creatinine and the sodium remained low, we will give another dose of Lasix today and repeat BMP tomorrow morning. 4. Arthritis Chronic To the right hip status post surgical intervention. 5. Systolic heart failure Chronic With acute and chronic component that could be started the day after the surgery but apparently was not presented on admission. We will challenge the patient's with Lasix and follow urine output. 6. Coronary artery disease Chronic No acute issue. 7. Hypertension Chronic Stable blood pressure, avoid hypotension. 8. IDDM (insulin dependent diabetes mellitus) Chronic Continue with Lantus and sliding scale insulin. Stay Reason/Anticipated Disch Awaiting Test Results Disclaimer This dictation was created using voice recognition software. Phonetic and/or minor grammatical errors may exist. eSign Date and Time Sigrid Hodge MD Verified/Reviewed by 07/21/18 1445 GLUCOSE METER Collected: 07/21/2018 Status: F Source: [facility] 11:21 AM [facility] TYPE CODE TESTS RESULT OUT OF REFERENCE UNITS RANGE LAB L500.48010 85-125 MG/DL High GLUCOSE METER 138 PROG.NEPH Observed: 07/21/2018 Status: UNK Source: [facility] 9:31 AM [facility] Patient Name: MAURI QUINONES [address] Date of : [address] [place] [address] Unit Number: [id number] Progress Note-Nephrology Patient Status: ADM IN Attending Doctor: Jensen Peguero DO Service Date: 07/21/18930 Progress Note-Nephrology([facility]) Subjective Subjective: Seen and examined. Resting comfortably. No acute events overnight. Voided 2 L following 40 mg of Lasix Objective Vital Signs: Vital Signs (Last) Result Date Time Pulse Ox 97 07/21 745 B/P 139/67 07/21 745 Temp 98.6 07/21 745 Pulse 58 07/21 745 Resp 17 07/21 745 O2 Delivery NASAL CANNULA 07/18 440 O2 Flow Rate 2 07/18 440 IandO 24 Hour Summary 07/21 0000 Intake Total 3380 Output Total 1999 Balance 1380 Intake, Oral 3380 Output, Stool 0 Output, Urine 1999 Exam: Lungs-fine bibasilar crackles Heart-regular Lower extremity-no edema Medications: Medications Current Sig/Cipriano Start time Last Medication Dose Route Stop Time Status Admin Al Hydrox/Mg Hydrox/ 30 ML Q4HPRN PRN 07/17 1100 AC Simethicone PO (MAALOX (ALAMAG)PLUS ORAL LIQ) Aspirin 162 MG QDAYWM 07/18 0800 AC 07/21 (ECOTRIN TAB.EC) PO 075 Diphenhydramine HCl 25 MG Q6HPRN PRN 07/17 1100 AC (BENADRYL CAP) PO Docusate Calcium 240 MG Q12H@21 07/17 2100 AC 07/21 (SURFAK CAP) PO 075 Doxazosin Mesylate 2 MG BID 07/17 2100 AC 07/21 (CARDURA TAB) PO 075 Enoxaparin Sodium 40 MG Q24H 07/18 0900 AC 07/21 (LOVENOX D.SYR) SC 0756 Ferric Sodium 250 MG QDAY 07/20 1500 AC 07/21 Gluconate IV 07/21 0959 0757 (FERRLECIT AMP) Sodium Chloride 100 ML (Sodium Chloride 0.9%) Gabapentin 600 MG QHS 07/17 2200 AC 07/20 (NEURONTIN CAP) PO 205 Hydrocodone Bitart/ 1 EACH Q4HPRN PRN 07/19 1430 AC Acetaminophen PO (NORCO 5-325 TAB) Hydrocodone Bitart/ 2 EACH Q4HPRN PRN 07/19 1430 AC 07/21 Acetaminophen PO 0755 (NORCO 5-325 TAB) Hydromorphone HCl 2 MG Q3HPRN PRN 07/17 1100 AC (DILAUDID D.SYR) IM Insulin Glargine 17 UNITS QHS 07/18 2200 AC 07/20 (LANTUS SOLOSTAR PEN) SC 2100 Insulin Human Lispro See Dose WMHS 07/17 2200 AC 07/20 (humaLOG/novoLOG PEN) Insts (1) SC 2100 Latanoprost 1 GTT QHS 07/17 2200 AC 07/20 (XALATAN 0.005% OPTH OU 2057 DROP) Pantoprazole Sodium 40 MG QDAYAC 11/22 0700 AC 07/21 (PROTONIX TAB) PO 06 Pravastatin Sodium 80 MG QHS 07/17 2200 AC 07/20 (PRAVACHOL TAB) PO 2057 Sodium Chloride 3 ML Q8H 07/17 1400 AC 07/21 (Sodium Chloride IV 0637 0.9% FLUSH D.SYR) Sodium Chloride 3 ML PRN PRN 07/17 1100 AC (Sodium Chloride IV 0.9% FLUSH D.SYR) Trimethobenzamide HCl 200 MG Q6HPRN PRN 07/17 1100 AC (TIGAN VIAL) IM Zolpidem Tartrate 5 MG QHSPRN PRN 07/17 1100 AC (AMBIEN TAB) PO Dose Instructions: (1)Insulin Human Lispro (humaLOG/novoLOG PEN): 2-10 Units Lab Results: Lab 24hr (CBC/BMP Fishbone) 07/21/18 0634: Whole Bld Glucose 73 L 07/21/18 0546: [Embedded Image Not Available] Anion Gap 8, Est GFR ( Amer) 23, Est GFR (Non-Af Amer) 19, BUN/Creatinine Ratio 21, Glucose 74, Total Calcium 7.6 L 07/20/18 2145: [Embedded Image Not Available] Anion Gap 8, Est GFR ( Amer) 24, Est GFR (Non-Af Amer) 19, BUN/Creatinine Ratio 21, Glucose 154 H, Total Calcium 7.5 L 07/20/18 2055: Whole Bld Glucose 197 H 07/20/18 1839: Urine Osmolality 237 07/20/18 1619: Whole Bld Glucose 155 H 07/20/18 1558: [Embedded Image Not Available] Serum Osmolality 297, Mgs-F-Sbyvgvnllaw Pept 37394 H, Thyroxine (T4) 8.5, T3 Uptake 38.0, TSH, Ultra Sensitive 1.150 07/20/18 1127: Whole Bld Glucose 152 H Assessment/Plan Assessment/Problem List: 1. Acute renal failure superimposed on stage 3 chronic kidney disease Acute o azotemia unchanged o clinically mild hypervolemia o will continue low-dose diuretics today; check BMP and CXR in a.m. o continue to hold VANESSA inhibitor o not ready for discharge at this time 2. Hyponatremia Acute o probably hypervolemic o low-dose diuretics o check morning labs 3. Hypertension Chronic o stable on current medication 4. Urinary retention Acute o s/p Mc catheter o add Flomax Communication Today with: Discussed with over the phone Disclaimer This dictation was created using voice recognition software. Phonetic and/or minor grammatical errors may exist. eSign Date and Time Jameson Sullivan MD Verified/Reviewed by 07/21/18 0936 PROG.ORTHO Observed: 07/21/2018 Status: UNK Source: [facility] 7:03 AM [facility] [place] REPOSITORY [facility] Patient Name: MAURI QUINONES [address] Date of : [address] [place] [address] Unit Number: [id number] Progress Note-Ortho Patient Status: ADM IN Attending Doctor: Jensen Peguero DO Service Date: 07/21/18702 Progress Note - Ortho Subjective S: (2 ROS minimum) Patient seen today. Having very little pain. No difficulty with ambulation. He is feeling well overall. He hasFoley catheter placed. Patient is frustrated. He is wanting to go home, but he is remaining in hospital due to elevated kidney markers. He feels that he is not getting up and walking as much throughout the day as he would like. Objective Nursing Vitals Vital Signs (Last) Result Date Time Pulse Ox 95 07/20 2320 B/P 146/75 07/20 2320 Temp 98.4 07/20 2320 Pulse 63 07/20 2320 Resp 18 07/20 2320 O2 Delivery NASAL CANNULA 07/18 440 O2 Flow Rate 2 07/18 0440 Physical Exam RLE Dressing dry and intact. Skin surrounding incision is without erythema or breakdown. Calf is nontender to palpation. 2+ distal pulses 5 out of 5 strength with DH/PH/EHL Diagnostic Data Lab 24hr (CBC/BMP Fishbone) 07/21/18 0634: Whole Bld Glucose 73 L 07/21/18 0546: [Embedded Image Not Available] Anion Gap 8, Est GFR ( Amer) 23, Est GFR (Non-Af Amer) 19, BUN/Creatinine Ratio 21, Glucose 74, Total Calcium 7.6 L 07/20/18 2145: [Embedded Image Not Available] Anion Gap 8, Est GFR ( Amer) 24, Est GFR (Non-Af Amer) 19, BUN/Creatinine Ratio 21, Glucose 154 H, Total Calcium 7.5 L 07/20/18 2055: Whole Bld Glucose 197 H 07/20/18 1839: Urine Osmolality 237 07/20/18 1619: Whole Bld Glucose 155 H 07/20/18 1558: [Embedded Image Not Available] Serum Osmolality 297, Boc-E-Ngzsqvfbkml Pept 92875 H, Thyroxine (T4) 8.5, T3 Uptake 38.0, TSH, Ultra Sensitive 1.150 07/20/18 1127: Whole Bld Glucose 152 H 07/20/18 0833: Troponin I 0.020 Assessment/Plan Conclusion 1. Arthritis Chronic Patient is postop day 4 from removal of hardware from RIGHT hip with RTHA. From an orthopedic standpoint he is doing well. He is able to ambulate without difficulty with low pain levels Patient's kidney markers continue to remain elevated despite placement of Mc catheter and adequate hydration. This is to be monitored by internal medicine and nephrology. Discharge pending review by medicine. Patient is to continue with PT OT while in hospital. On Sat 7:03a Jul 20, 2018 BLADE MENDOZA wrote Postoperative day #3 status post right total hip arthroplasty Patient had Mc catheter placed yesterday due to urinary retention. He has history of chronic kidney disease however appears to have acute kidney injury additionally. His creatinine levels continue to rise despite Mc placement and increased hydration. We will have medicine continue to manage this. Patient may be weight bear as tolerated on his right lower extremity, continue PT and OT as long as he is in the hospital. Will plan on discharge home when medically stabilized. 2. Acute renal failure superimposed on stage 3 chronic kidney disease Acute 3. Urinary retention Acute Stable Problems Problems not specifically addressed in the above plan are stable and do not warrant adjustment of the current method of therapy. Disclaimer This dictation was created using voice recognition software. Phonetic and/or minor grammatical errors may exist. eSign Date and Time Blade Mendoza DO Verified/Reviewed by 07/21/18 0716 Jensen Peguero DO GLUCOSE METER Collected: 07/21/2018 Status: F Source: [facility] 6:34 AM [facility] [place] REPOSITORY TYPE CODE TESTS RESULT OUT OF REFERENCE UNITS RANGE LAB L500.94046 85-125 MG/DL Low GLUCOSE METER 73 BMP Collected: 07/21/2018 Status: F Source: [facility] 5:46 AM [facility] REPOS[facility] Order Comment: Kountze: M TYPE CODE TESTS RESULT OUT OF RANGE REFERENCE UNITS LAB L500.68647 136-145 MMOL/L Low NA 128 LAB L500.60157 3.5-5.1 MMOL/L Normal K 5.0 LAB L500.84592 98-107 MMOL/L Low CL 93 LAB L500.02379 21-32 MMOL/L Normal CO2 27 LAB L500.93255 5-16 MMOL/L Normal AGAP 8 LAB L500.15101 70-100 MG/DL Normal GLU 74 Result Comment: 70-100- Normal Fasting; 100-125 Impaired Fasting; greater than 126 on more than one result- Diabetes. ADA guidelines. Results may be falsely elevated after the administration of Sulfapyridine. Results may be falsely depressed after the administration of Sulfasalazine. LAB L500.10751 7-26 MG/DL High BUN 69 LAB L500.68778 0.670-1.170 MG/DL High CREAT 3.310 Result Comment: Patients receiving either N-Acetylcysteine (NAC) or Metamizole prior to venipuncture, may have falsely depressed results. LAB L500.24226 15-24 Normal BUN/CREA 21 LAB L500.85663 8.5-10.1 MG/DL Low CALCIUM TOTAL 7.6 Performed By: #### L500.76239, L500.60545 #### [facility] [address] [place] [address] GFR EST Collected: 07/21/2018 Status: F Source: [facility] 5:46 AM [facility] REPOSITORY Order Comment: Kountze: M TYPE CODE TESTS RESULT OUT OF RANGE REFERENCE UNITS LAB L500.58751 ML/MIN Normal IF non-AFR 19 AMER LAB L500.52542 ML/MIN Normal IF 23 AMER Performed By: #### L500.80821, L500.84934 #### [facility] [address] [place] [address] BMP Collected: 07/20/2018 Status: F Source: [facility] 9:45 PM [facility] REPOSITORY Order Comment: Kountze: M TYPE CODE TESTS RESULT OUT OF RANGE REFERENCE UNITS LAB L500.34494 136-145 MMOL/L Low NA 126 LAB L500.62911 3.5-5.1 MMOL/L Normal K 5.0 LAB L500.69511 98-107 MMOL/L Low CL 91 LAB L500.97175 21-32 MMOL/L Normal CO2 27 LAB L500.48749 5-16 MMOL/L Normal AGAP 8 LAB L500.91714 70-100 MG/DL High GLU 154 Result Comment: 70-100- Normal Fasting; 100-125 Impaired Fasting; greater than 126 on more than one result- Diabetes. ADA guidelines. Results may be falsely elevated after the administration of Sulfapyridine. Results may be falsely depressed after the administration of Sulfasalazine. LAB L500.77392 7-26 MG/DL High BUN 68 LAB L500.98514 0.670-1.170 MG/DL High CREAT 3.260 Result Comment: Patients receiving either N-Acetylcysteine (NAC) or Metamizole prior to venipuncture, may have falsely depressed results. LAB L500.02132 15-24 Normal BUN/CREA 21 LAB L500.01628 8.5-10.1 MG/DL Low CALCIUM TOTAL 7.5 Performed By: #### L500.21066, L500.26170 #### [facility] [address] [place] [address] GFR EST Collected: 07/20/2018 Status: F Source: [facility] 9:45 PM [facility] REPOSITORY Order Comment: Kountze: M TYPE CODE TESTS RESULT OUT OF RANGE REFERENCE UNITS LAB L500.32059 ML/MIN Normal IF non-AFR 19 AMER LAB L500.52479 ML/MIN Normal IF 24 AMER Performed By: #### L500.66377, L500.56068 #### [facility] [address] [place] [address] GLUCOSE METER Collected: 07/20/2018 Status: F Source: [facility] 8:55 PM [facility] REPOSITORY TYPE CODE TESTS RESULT OUT OF REFERENCE UNITS RANGE LAB L500.19021 85-125 MG/DL High GLUCOSE METER 197 UR OSMO Collected: 07/20/2018 Status: F Source: [facility] 6:39 PM [facility] REPOSITORY Order Comment: Kountze: M TYPE CODE TESTS RESULT OUT OF RANGE REFERENCE UNITS LAB L600.88771 50-1200 MOSM/KG Normal UR OSMO 237 Performed By: #### L600.01511 #### [facility] [address] [place], [place] [id number] GLUCOSE METER Collected: 07/20/2018 Status: F Source: [facility] 4:19 PM [facility] REPOSITORY TYPE CODE TESTS RESULT OUT OF REFERENCE UNITS RANGE LAB L500.19905 85-125 MG/DL High GLUCOSE METER 155 K Collected: 07/20/2018 Status: F Source: [facility] 3:58 PM [facility] REPOSITORY Order Comment: Kountze: M TYPE CODE TESTS RESULT OUT OF RANGE REFERENCE UNITS LAB L500.84441 3.5-5.1 MMOL/L High K 5.8 Performed By: #### L500.45623, L500.27627, L500.76063, L500.74521 #### [facility] [address] [place] [address] PBNP TEST Collected: 07/20/2018 Status: F Source: [facility] 3:58 PM [facility] REPOSITORY Order Comment: Kountze: M TYPE CODE TESTS RESULT OUT OF RANGE REFERENCE UNITS LAB L500.10997 0-900 PG/ML High PBNP TEST 89388 Result Comment: NT-proBNP results of less than 300 pg/ml effectively rules out acute congestive heart failure with 99% negative predictive value. Performed By: #### L500.00961, L500.87952, L500.81413, L500.87212 #### [facility] [address] [place] [address] OSMO SERUM Collected: 07/20/2018 Status: F Source: [facility] 3:58 PM [facility] REPOSITORY Order Comment: Kountze: M TYPE CODE TESTS RESULT OUT OF RANGE REFERENCE UNITS LAB L500.67251 280-300 MOSM/KG Normal OSMO 297 SERUM Performed By: #### L500.51580, L500.48603, L500.57404, L500.84307 #### [facility] [address] [place], [place] [id number] THYROID PRO/TSH Collected: 07/20/2018 Status: F Source: [facility] 3:58 PM [facility] REPOSITORY Order Comment: Kountze: M TYPE CODE TESTS RESULT OUT OF RANGE REFERENCE UNITS LAB L500.29224 33.0-40.0 % Normal T3 UP 38.0 LAB L500.68844 4.5-12.1 UG/DL Normal T4 8.5 Result Comment: RESULTS MAY BE FALSELY ELEVATED AFTER THE ADMINISTRATION OF SULFASALAZINE. LAB L500.55912 0.358-3.740 UIU/ML Normal 1.150 TSH Result Comment: 3rd generation ultra sensitive TSH Performed By: #### L500.80822, L500.81326, L500.90824, L500.97435 #### [facility] [address] [id number] PROG IMS Observed: 07/20/2018 Status: UNK Source: [facility] 2:52 PM [facility] REPOSITORY [facility] Patient Name: MAURI QUINONES [address] [facility] Date of : [address] [place], [place] [address] Unit Number: [id number] Progress Note-Hospitalist Patient Status: ADM IN Attending Doctor: Jensen Peguero DO Service Date: 07/20/18 1452 Chief Complaint Chief Complaint Right hip pain Subjective S: (2 ROS minimum) No chest pain or shortness of breath, no abdominal pain nausea or vomiting. Objective (ROS) Nursing Vitals Vital Signs (Last) Result Date Time Pulse Ox 94 07/20 08 B/P 125/70 07/20 08 Temp 98.9 07/20 08 Pulse 67 07/20 0802 Resp 20 07/20 08 O2 Delivery NASAL CANNULA 07/18 044 O2 Flow Rate 2 07/18 0440 General Appearance Comfortable Physical Exam Physical Examination Notes Neurological / Psychiatric Alert, Orientation X3 HEENT EOMI, PERRL Neck No JVD, No Enlarged Thyroid Respiratory Normal Breathing Effort, Clear Lungs Cardiovascular Heart RRR, No M / R / G Gastrointestinal Normal Bowel Sounds, Non Tender Musculoskeletal No Edema Skin No Rash, Warm / Dry Diagnostic Data: Medications Current Sig/Cipriano Start time Last Medication Dose Route Stop Time Status Admin Al Hydrox/Mg Hydrox/ 30 ML Q4HPRN PRN 07/17 1100 AC Simethicone PO (MAALOX (ALAMAG)PLUS ORAL LIQ) Aspirin 162 MG QDAYWM 07/18 0800 AC 07/20 (ECOTRIN TAB.EC) PO 08 Diphenhydramine HCl 25 MG Q6HPRN PRN 07/17 1100 AC (BENADRYL CAP) PO Docusate Calcium 240 MG Q12H@21 07/17 2100 AC 07/20 (SURFAK CAP) PO 0838 Doxazosin Mesylate 2 MG BID 07/17 2100 AC 07/20 (CARDURA TAB) PO 0838 Enoxaparin Sodium 40 MG Q24H 07/18 0900 AC 07/20 (LOVENOX D.SYR) SC 0839 Ferric Sodium 250 MG QDAY 07/20 1500 AC Gluconate IV 07/21 0959 (FERRLECIT AMP) Sodium Chloride 100 ML (Sodium Chloride 0.9%) Gabapentin 600 MG QHS 07/170 AC 07/19 (NEURONTIN CAP) PO 205 Hydrocodone Bitart/ 1 EACH Q4HPRN PRN 07/19 1430 AC Acetaminophen PO (NORCO 5-325 TAB) Hydrocodone Bitart/ 2 EACH Q4HPRN PRN 07/19 1430 AC 07/20 Acetaminophen PO 1320 (NORCO 5-325 TAB) Hydromorphone HCl 2 MG Q3HPRN PRN 07/17 1100 AC (DILAUDID D.SYR) IM Insulin Glargine 17 UNITS QHS 07/18 2200 AC 07/18 (LANTUS SOLOSTAR PEN) SC 204 Insulin Human Lispro See Dose WMHS 07/17 2200 AC 07/20 (humaLOG/novoLOG PEN) Insts (1) SC 1225 Latanoprost 1 GTT QHS 07/17 2200 AC 07/19 (XALATAN 0.005% OPTH OU 2048 DROP) Pantoprazole Sodium 40 MG QDAYAC 07/18 0700 AC 07/20 (PROTONIX TAB) PO 06 Pravastatin Sodium 80 MG QHS 07/17 2200 AC 07/19 (PRAVACHOL TAB) PO 204 Sodium Chloride 3 ML Q8H 07/17 1400 AC 07/20 (Sodium Chloride IV 0618 0.9% FLUSH D.SYR) Sodium Chloride 3 ML PRN PRN 07/17 1100 AC (Sodium Chloride IV 0.9% FLUSH D.SYR) Trimethobenzamide HCl 200 MG Q6HPRN PRN 07/17 1100 AC (TIGAN VIAL) IM Zolpidem Tartrate 5 MG QHSPRN PRN 07/17 1100 AC (AMBIEN TAB) PO Dose Instructions: (1)Insulin Human Lispro (humaLOG/novoLOG PEN): 2-10 Units Lab 24hr (CBC/BMP Fishbone) 07/20/18 1127: Whole Bld Glucose 152 H 07/20/18 0833: Troponin I 0.020 07/20/18 0617: Whole Bld Glucose 124 07/20/18 0608: [Embedded Image Not Available] Anion Gap 9, Est GFR ( Amer) 23, Est GFR (Non-Af Amer) 19, BUN/Creatinine Ratio 19, Glucose 115 H, Total Calcium 7.6 L 07/20/18 0548: [Embedded Image Not Available] Anion Gap 8, Est GFR ( Amer) 23, Est GFR (Non-Af Amer) 19, BUN/Creatinine Ratio 20, Glucose 119 H, Total Calcium 7.8 L, RBC 3.20 L, MCV 92.5, MCHC 31.8 L, RDW 17.5 H, MPV 10.0, Nucleated RBCs 0.0 07/19/18 2045: Whole Bld Glucose 117 07/19/18 1604: Whole Bld Glucose 119 Assessment and Plan Conclusion 1. Urinary retention Acute Status post Mc catheter placement. Patient should be referred to urologist for outpatient voiding trial. 2. Hyponatremia Acute Sodium level remained low, sodium in the urine its in the lower side however patient clinically looks euvolemic and does not look dehydrated, awaiting nephrology input. Check urine and serum osmolalities. Check TSH. 3. Acute renal failure superimposed on stage 3 chronic kidney disease Acute Ultrasound of the kidneys came back normal. Jig Borer has been consulted. Continue to monitor BMPs 4. Arthritis Chronic To the right hip status post surgical intervention. 5. Systolic heart failure Chronic Compensated at this time, hold diuretics. 6. Coronary artery disease Chronic No acute issue. 7. Hypertension Chronic Stable blood pressure, avoid hypotension. 8. IDDM (insulin dependent diabetes mellitus) Chronic Continue with Lantus and sliding scale insulin. Stay Reason/Anticipated Disch Awaiting Consult, Awaiting Test Results Disclaimer This dictation was created using voice recognition software. Phonetic and/or minor grammatical errors may exist. eSign Date and Time Sigrid Hodge MD Verified/Reviewed by 07/20/18 1459 GLUCOSE METER Collected: 07/20/2018 Status: F Source: [facility] 11:27 AM [facility] REPOSITORY TYPE CODE TESTS RESULT OUT OF REFERENCE UNITS RANGE LAB L500.44449 85-125 MG/DL High GLUCOSE METER 152 TROPONIN I Collected: 07/20/2018 Status: F Source: [facility] 8:33 AM [facility] REPOSITORY Order Comment: Kountze: M TYPE CODE TESTS RESULT OUT OF RANGE REFERENCE UNITS LAB L550.03668 0.000-0.045 NG/ML Normal TROPONIN I 0.020 Performed By: #### L550.26027 #### [facility] [address] [place] [address] PROG.ORTHO Observed: 07/20/2018 Status: UNK Source: [facility] 6:59 AM [facility] REPOSITORY MTDD GLUCOSE METER Collected: 07/20/2018 Status: F Source: [facility] 6:17 AM [facility] REPOSITORY TYPE CODE TESTS RESULT OUT OF RANGE REFERENCE UNITS LAB L500.40242 85-125 MG/DL Normal GLUCOSE METER 124 BMP Collected: 07/20/2018 Status: F Source: [facility] 6:08 AM [facility] REPOSITORY Order Comment: Kountze: M TYPE CODE TESTS RESULT OUT OF RANGE REFERENCE UNITS LAB L500.49293 136-145 MMOL/L Low NA 128 LAB L500.14089 3.5-5.1 MMOL/L High K 5.4 LAB L500.31989 98-107 MMOL/L Low CL 91 LAB L500.95737 21-32 MMOL/L Normal CO2 28 LAB L500.45458 5-16 MMOL/L Normal AGAP 9 LAB L500.27823 70-100 MG/DL High GLU 115 Result Comment: 70-100- Normal Fasting; 100-125 Impaired Fasting; greater than 126 on more than one result- Diabetes. ADA guidelines. Results may be falsely elevated after the administration of Sulfapyridine. Results may be falsely depressed after the administration of Sulfasalazine. LAB L500.17563 7-26 MG/DL High BUN 64 LAB L500.27180 0.670-1.170 MG/DL High CREAT 3.360 Result Comment: Patients receiving either N-Acetylcysteine (NAC) or Metamizole prior to venipuncture, may have falsely depressed results. LAB L500.96345 15-24 Normal BUN/CREA 19 LAB L500.07107 8.5-10.1 MG/DL Low CALCIUM TOTAL 7.6 Performed By: #### L500.81416, L500.64812 #### [facility] [address] [place] [address] GFR EST Collected: 07/20/2018 Status: F Source: [facility] 6:08 AM [facility] REPOSITORY Order Comment: Kountze: TYPE CODE TESTS RESULT OUT OF RANGE REFERENCE UNITS LAB L500.78502 ML/MIN Normal IF non-AFR 19 AMER LAB L500.52746 ML/MIN Normal IF 23 AMER Performed By: #### L500.70795, L500.93016 #### [facility] [address] [place] [address] CBC Collected: 07/20/2018 Status: F Source: [facility] 5:48 AM [facility] REPOSITORY Order Comment: Kountze: M TYPE CODE TESTS RESULT OUT OF RANGE REFERENCE UNITS LAB L200.15882 4.5-11.0 K/CU MM Normal WBC 7.4 LAB L200.05979 4.50-6.00 M/CU MM Low RBC 3.20 LAB L200.12644 13.5-17.5 G/DL Low HGB 9.4 LAB L200.42891 41.0-53.0 % Low HCT 29.6 LAB L200.87249 80.0-99.0 fl Normal MCV 92.5 LAB L200.30344 32.0-36.0 GM/DL Low MCHC 31.8 LAB L200.86011 11-14.5 High RDW 17.5 LAB L200.09492 9.4-12.4 Normal MPV 10.0 LAB L200.68458 150-450 K/CU MM Normal PLT 193 LAB L200.61799 Less than 1 % Normal NRBC 0.0 Performed By: #### L200.40748 #### [facility] [address] [place] [address] BMP Collected: 07/20/2018 Status: F Source: [facility] 5:48 AM [facility] REPOSITORY Order Comment: Kountze: M TYPE CODE TESTS RESULT OUT OF RANGE REFERENCE UNITS LAB L500.86224 136-145 MMOL/L Low NA 129 LAB L500.30111 3.5-5.1 MMOL/L High K 5.4 LAB L500.80386 98-107 MMOL/L Low CL 92 LAB L500.63696 21-32 MMOL/L Normal CO2 29 LAB L500.26820 5-16 MMOL/L Normal AGAP 8 LAB L500.22033 70-100 MG/DL High GLU 119 Result Comment: 70-100- Normal Fasting; 100-125 Impaired Fasting; greater than 126 on more than one result- Diabetes. ADA guidelines. Results may be falsely elevated after the administration of Sulfapyridine. Results may be falsely depressed after the administration of Sulfasalazine. LAB L500.76464 7-26 MG/DL High BUN 64 LAB L500.67980 0.670-1.170 MG/DL High CREAT 3.280 Result Comment: Patients receiving either N-Acetylcysteine (NAC) or Metamizole prior to venipuncture, may have falsely depressed results. LAB L500.28197 15-24 Normal BUN/CREA 20 LAB L500.42462 8.5-10.1 MG/DL Low CALCIUM TOTAL 7.8 Performed By: #### L500.30070, L500.92378 #### [facility] [address] [place] [address] GFR EST Collected: 07/20/2018 Status: F Source: [facility] 5:48 AM [facility] REPOSITORY Order Comment: Kountze: M TYPE CODE TESTS RESULT OUT OF RANGE REFERENCE UNITS LAB L500.22646 ML/MIN Normal IF non-AFR 19 AMER LAB L500.26811 ML/MIN Normal IF 23 AMER Performed By: #### L500.13222, L500.30078 #### [facility] [place] [address] GLUCOSE METER Collected: 07/19/2018 Status: F Source: [facility] 8:45 PM [facility] REPOSITORY TYPE CODE TESTS RESULT OUT OF RANGE REFERENCE UNITS LAB L500.04168 85-125 MG/DL Normal GLUCOSE METER 117 GLUCOSE METER Collected: 07/19/2018 Status: F Source: [facility] 4:04 PM [facility] REPOSITORY TYPE CODE TESTS RESULT OUT OF RANGE REFERENCE UNITS LAB L500.02586 85-125 MG/DL Normal GLUCOSE METER 119 PROG IMS Observed: 07/19/2018 Status: UNK Source: [facility] 2:18 PM [facility] REPOSITORY [facility] Patient Name: MAURI QUINONES [address] [employer] [address] Date of : [address] [place] [address] Unit Number: [id number] Progress Note-Hospitalist Patient Status: ADM IN Attending Doctor: Jensen Peguero DO Service Date: 07/19/18 1418 Chief Complaint Chief Complaint Right hip pain Subjective S: (2 ROS minimum) No chest pain or shortness of breath, no abdominal pain nausea or vomiting, patient feels pretty good and denied any specific symptoms, he continued to have urinary retention and had a Mc catheter placed. Objective (ROS) Nursing Vitals Vital Signs (Last) Result Date Time Pulse Ox 95 07/19 730 B/P 145/73 07/19 730 Temp 98.4 07/19 07 Pulse 74 07/19 0730 Resp 16 07/19 07 O2 Delivery NASAL CANNULA 07/18 0440 O2 Flow Rate 2 07/18 0440 General Appearance Comfortable Physical Exam Physical Examination Notes Neurological / Psychiatric Alert, Orientation X3 HEENT EOMI, PERRL Neck No JVD, No Enlarged Thyroid Respiratory Normal Breathing Effort, Clear Lungs Cardiovascular Heart RRR, No M / R / G Gastrointestinal Normal Bowel Sounds, Non Tender Musculoskeletal No Edema Skin No Rash, Warm / Dry Diagnostic Data: Medications Current Sig/Cipriano Start time Last Medication Dose Route Stop Time Status Admin Al Hydrox/Mg Hydrox/ 30 ML Q4HPRN PRN 07/17 1100 AC Simethicone PO (MAALOX (ALAMAG)PLUS ORAL LIQ) Aspirin 162 MG QDAYWM 07/18 0800 AC 07/19 (ECOTRIN TAB.EC) PO 0922 Diphenhydramine HCl 25 MG Q6HPRN PRN 07/17 1100 AC (BENADRYL CAP) PO Docusate Calcium 240 MG Q12H@21 07/17 2100 AC 07/19 (SURFAK CAP) PO 09 Doxazosin Mesylate 2 MG BID 07/17 2100 AC 07/19 (CARDURA TAB) PO 09 Enoxaparin Sodium 40 MG Q24H 07/18 0900 AC 07/19 (LOVENOX D.SYR) SC 09 Gabapentin 600 MG QHS 07/17 2200 AC 07/18 (NEURONTIN CAP) PO 204 Hydromorphone HCl 2 MG Q3HPRN PRN 07/17 1100 AC (DILAUDID D.SYR) IM Insulin Glargine 17 UNITS QHS 07/18 2200 AC 07/18 (LANTUS SOLOSTAR PEN) SC 2040 Insulin Human Lispro See Dose WMHS 07/17 2200 AC 07/18 (humaLOG/novoLOG PEN) Insts (1) SC 2039 Latanoprost 1 GTT QHS 07/17 2200 AC 07/18 (XALATAN 0.005% OPTH OU 2038 DROP) Pantoprazole Sodium 40 MG QDAYAC 07/18 0700 AC 07/19 (PROTONIX TAB) PO 0601 Pravastatin Sodium 80 MG QHS 07/17 2200 AC 07/18 (PRAVACHOL TAB) PO 204 Sodium Chloride 3 ML Q8H 07/17 1400 AC 07/19 (Sodium Chloride IV 1413 0.9% FLUSH D.SYR) Sodium Chloride 3 ML PRN PRN 07/17 1100 AC (Sodium Chloride IV 0.9% FLUSH D.SYR) Trimethobenzamide HCl 200 MG Q6HPRN PRN 07/17 1100 AC (TIGAN VIAL) IM Zolpidem Tartrate 5 MG QHSPRN PRN 07/17 1100 AC (AMBIEN TAB) PO Dose Instructions: (1)Insulin Human Lispro (humaLOG/novoLOG PEN): 2-10 Units Lab 24hr (CBC/BMP Fishbone) 07/19/18 1140: Ur Random Sodium 22, Ur Random Potassium 32.8, Ur Random Chloride LESS THAN 15 07/19/18 1140: Urine Color Yellow, Urine Appearance Hazy, Urine pH 5.0, Ur Specific [place] 1.009, Urine Protein 30, Urine Glucose (UA) NEG, Urine Ketones NEGATIVE, Urine Blood SMALL, Urine Nitrite NEGATIVE, Urine Bilirubin NEGATIVE, Urine Urobilinogen NEG, Ur Leukocyte Esterase 75, Urine RBC 8 H, Urine WBC 2, Ur Squamous Epith Cells 0, Urine Bacteria TRACE, Hyaline Casts 1, Urine Mucus TRACE 07/19/18 1105: Whole Bld Glucose 124 07/19/18 0855: Troponin I 0.023 07/19/18 0619: Whole Bld Glucose 76 L 07/19/18 0444: [Embedded Image Not Available] Anion Gap 7, Est GFR ( Amer) 25, Est GFR (Non-Af Amer) 20, BUN/Creatinine Ratio 19, Glucose 73, Total Calcium 7.6 L, RBC 3.12 L, MCV 92.3, MCHC 31.3 L, RDW 17.9 H, MPV 9.8, Nucleated RBCs 0.2 07/18/187: Whole Bld Glucose 305 H 07/18/18 1613: Whole Bld Glucose 296 H Assessment and Plan Conclusion 1. Urinary retention Acute Status post Mc catheter placement. Patient should be referred to urologist for outpatient voiding trial. 2. Hyponatremia Acute Worsening with IV normal salin overnight. We will check sodium level in the urine. 3. Acute renal failure superimposed on stage 3 chronic kidney disease Acute Worsening kidney function despite IV hydration and holding nephrotoxic medication diuretics and VANESSA inhibitors. Patient looks euvolemic and we will need to continue monitoring kidney function. I will consult steam oven operator to assess worsening kidney function Continue with Mc catheter to avoid obstructive uropathy We will check urine electrolytes and urine analysis Check renal ultrasound. 4. Arthritis Chronic To the right hip status post surgical intervention. 5. Systolic heart failure Chronic Compensated at this time, hold diuretics. 6. Coronary artery disease Chronic No acute issue. 7. Hypertension Chronic Stable blood pressure, avoid hypotension. 8. IDDM (insulin dependent diabetes mellitus) Chronic Continue with Lantus and sliding scale insulin. Stay Reason/Anticipated Disch Awaiting Test Results Disclaimer This dictation was created using voice recognition software. Phonetic and/or minor grammatical errors may exist. eSign Date and Time Sigrid Hodge MD Verified/Reviewed by 07/19/18 1424 UR LYTES Collected: 07/19/2018 Status: F Source: [facility] 11:40 AM [facility] REPOSITORY Order Comment: Kountze: M TYPE CODE TESTS RESULT OUT OF RANGE REFERENCE UNITS LAB L600.07459 MMOL/L Normal UR NA RANDOM 22 LAB L600.39222 MMOL/L Normal UR K RANDOM 32.8 LAB L600.92539 MMOL/L Normal UR CL RANDOM LESS THAN 15 Performed By: #### L600.47363 #### [facility] [address] [place] [address] UA COMPLETE Collected: 07/19/2018 Status: F Source: [facility] 11:40 AM [facility] REPOSITORY Order Comment: Kountze: M TYPE CODE TESTS RESULT OUT OF REFERENCE UNITS RANGE LAB L600.62616 UA COLOR Normal Yellow LAB L600.98098 CLEAR UA Normal APPEARANCE Hazy LAB L600.25543 1.005-1.030 UA SPEC Normal GRAV 1.009 LAB L600.00118 UA PH Normal 5.0 LAB L600.81405 UA GLUCOSE Normal NEG LAB L600.31810 UA KETONE Normal NEGATIVE LAB L600.13354 UA Normal BILIRUBIN NEGATIVE LAB L600.01262 UA Normal UROBILINOGEN NEG LAB L600.74003 NEGATIVE UA PROTEIN Normal 30 LAB L600.89447 NEGATIVE UA BLOOD Normal SMALL LAB L600.71687 NEGATIVE UA NITRITE Normal NEGATIVE LAB L600.72236 NEGATIVE UA LK Normal ESTERASE 75 LAB L600.17667 0-5 WBC/HPF UA WBC Normal 2 LAB L600.44014 0-3 RBC/HPF UA RBC High 8 LAB L600.36862 0-5 EPI/HPF SQUAMOUS Normal EPIS 0 LAB L600.97828 NONE /HPF UA BACTERIA Normal TRACE LAB L600.56934 MUCUS Normal TRACE LAB L600.18923 0-1 /LPF HYALINE Normal CAST 1 Performed By: #### L600.29747 #### [facility] [address] [place] [address] GLUCOSE METER Collected: 07/19/2018 Status: F Source: [facility] 11:05 AM [facility] REPOSITORY TYPE CODE TESTS RESULT OUT OF RANGE REFERENCE UNITS LAB L500.60121 85-125 MG/DL Normal GLUCOSE METER 124 TROPONIN I Collected: 07/19/2018 Status: F Source: [facility] 8:55 AM [facility] REPOSITORY Order Comment: Kountze: M TYPE CODE TESTS RESULT OUT OF RANGE REFERENCE UNITS LAB L550.05103 0.000-0.045 NG/ML Normal TROPONIN I 0.023 Performed By: #### L550.34017 #### [facility] [address] [place] [address] GLUCOSE METER Collected: 07/19/2018 Status: F Source: [facility] 6:19 AM [facility] REPOSITORY TYPE CODE TESTS RESULT OUT OF REFERENCE UNITS RANGE LAB L500.18192 85-125 MG/DL Low GLUCOSE METER 76 PROG.ORTHO Observed: 07/19/2018 Status: UNK Source: [facility] 5:17 AM [facility] REPOSITORY [facility] Patient Name: MAURI QUINONES [address] [facility] Date of : [address] [place] [address] Unit Number: [id number] Progress Note-Ortho Patient Status: ADM IN Attending Doctor: Jensen Peguero DO Service Date: 07/19/18516 Progress Note - Ortho Subjective S: (2 ROS minimum) Patient seen and examined. Continues to complain of urinary retention. States that his hip is doing well with only minimal pain. Has been up ambulating without difficulty. Objective Nursing Vitals Vital Signs (Last) Result Date Time Pulse Ox 95 07/19 330 B/P 135/67 07/19 330 Temp 98.1 07/19 033 Pulse 64 07/19 033 Resp 18 07/19 033 O2 Delivery NASAL CANNULA 07/18 440 O2 Flow Rate 2 07/18 440 Physical Exam General: [Alert and oriented x3, no acute distress] LE: SILT L2-S1 5/5 strength with DF/PF/EHL 2+ distal pulses - calf tenderness Dressing clean, dry, intact Diagnostic Data Lab 24hr (CBC/BMP Fishbone) 07/19/18 0444: [Embedded Image Not Available] Sodium Pending, Potassium Pending, Chloride Pending, Carbon Dioxide Pending, Anion Gap Pending, BUN Pending, Creatinine Pending, BUN/Creatinine Ratio Pending, Glucose Pending, Total Calcium Pending, RBC 3.12 L, MCV 92.3, MCHC 31.3 L, RDW 17.9 H, MPV 9.8, Nucleated RBCs 0.2 11/22/18 2037: Whole Bld Glucose 305 H 07/18/18 1613: Whole Bld Glucose 296 H 07/18/18 1054: Whole Bld Glucose 293 H 07/18/18 0832: Troponin I 0.023 07/18/18 0832: [Embedded Image Not Available] Anion Gap 10, Est GFR ( Amer) 30, Est GFR (Non-Af Amer) 25, BUN/Creatinine Ratio 21 , Glucose 259 H, Total Calcium 7.9 L, Iron 58 L, TIBC 330, Iron Saturation 18 L, Ferritin 344.7, RBC 3.64 L, MCV 92.6, MCHC 32.0, RDW 18.1 H, MPV 9.5, Nucleated RBCs 0.1 07/18/18 0716: Whole Bld Glucose 212 H Assessment/Plan Conclusion 1. Arthritis Chronic Postoperative day #2 status post right total hip arthroplasty Weight-bear as tolerated right lower extremity Continue PT/OT Continue DVT prophylaxis and pain control Medicine is currently managing the patient's urinary retention and acute kidney injury From an orthopedic standpoint patient is doing very well. Will plan for discharge home once medically stabilized. On Yaritza 6:16a Jul 18, 2018 BLADE MENDOZA wrote Postop day 1 status post right total hip arthroplasty Weight-bear as tolerated right lower extremity DVT prophylaxis, pain control A straight cath as needed for urinary retention Possible discharge home today if doing well with physical therapy and able to void 2. Acute renal failure superimposed on stage 3 chronic kidney disease Acute Physician Attestation Statement of Attestation Patient continues to have difficulty with urination and has been straight cathed x3. I recommend placing a Mc catheter to monitor his ins and outs as well as renal function. Patient is doing well from a hip standpoint. Ambulate in without difficulty. Okay for discharge from orthopedic standpoint when cleared by medicine. I confirm that I have evaluated the patient, reviewed the history and physical, medications, diagnostic results, physical exam, assessment and plan of care of the patient. Disclaimer This dictation was created using voice recognition software. Phonetic and/or minor grammatical errors may exist. eSign Date and Time Blade Mendoza DO Verified/Reviewed by 07/19/18 0521 Chacorta Carlton DO CBC Collected: 07/19/2018 Status: F Source: [facility] 4:44 AM [facility] REPOSITORY Order Comment: Kountze: M TYPE CODE TESTS RESULT OUT OF RANGE REFERENCE UNITS LAB L200.07968 4.5-11.0 K/CU MM Normal WBC 9.9 LAB L200.64330 4.50-6.00 M/CU MM Low RBC 3.12 LAB L200.07250 13.5-17.5 G/DL Low HGB 9.0 LAB L200.55834 41.0-53.0 % Low HCT 28.8 LAB L200.01327 80.0-99.0 fl Normal MCV 92.3 LAB L200.31014 32.0-36.0 GM/DL Low MCHC 31.3 LAB L200.26888 11-14.5 High RDW 17.9 LAB L200.67384 9.4-12.4 Normal MPV 9.8 LAB L200.05097 150-450 K/CU MM Normal PLT 188 LAB L200.51435 Less than 1 % Normal NRBC 0.2 Performed By: #### L200.83614 #### [facility] [place] [address] BMP Collected: 07/19/2018 Status: F Source: [facility] 4:44 AM [facility] REPOSITORY Order Comment: Kountze: M TYPE CODE TESTS RESULT OUT OF RANGE REFERENCE UNITS LAB L500.60160 136-145 MMOL/L Low NA 128 LAB L500.81510 3.5-5.1 MMOL/L High K 5.3 LAB L500.79012 98-107 MMOL/L Low CL 92 LAB L500.23968 21-32 MMOL/L Normal CO2 28 LAB L500.77602 5-16 MMOL/L Normal AGAP 7 LAB L500.69532 70-100 MG/DL Normal GLU 73 Result Comment: 70-100- Normal Fasting; 100-125 Impaired Fasting; greater than 126 on more than one result- Diabetes. ADA guidelines. Results may be falsely elevated after the administration of Sulfapyridine. Results may be falsely depressed after the administration of Sulfasalazine. LAB L500.13268 7-26 MG/DL High BUN 58 LAB L500.59668 0.670-1.170 MG/DL High CREAT 3.150 Result Comment: Patients receiving either N-Acetylcysteine (NAC) or Metamizole prior to venipuncture, may have falsely depressed results. LAB L500.23216 15-24 Normal BUN/CREA 19 LAB L500.13909 8.5-10.1 MG/DL Low CALCIUM TOTAL 7.6 Performed By: #### L500.46430, L500.17636 #### [facility] [address] [place] [address] GFR EST Collected: 07/19/2018 Status: F Source: [facility] 4:44 AM [facility] REPOSITORY Order Comment: Kountze: TYPE CODE TESTS RESULT OUT OF RANGE REFERENCE UNITS LAB L500.94610 ML/MIN Normal IF non-AFR 20 AMER LAB L500.24578 ML/MIN Normal IF 25 AMER Performed By: #### L500.54285, L500.06727 #### [facility] [address] [place] [address] GLUCOSE METER Collected: 07/18/2018 Status: F Source: [facility] 8:37 PM [facility] REPOSITORY TYPE CODE TESTS RESULT OUT OF REFERENCE UNITS RANGE LAB L500.12316 85-125 MG/DL High GLUCOSE METER 305 GLUCOSE METER Collected: 07/18/2018 Status: F Source: [facility] 4:13 PM [facility] REPOSITORY TYPE CODE TESTS RESULT OUT OF REFERENCE UNITS RANGE LAB L500.89374 85-125 MG/DL High GLUCOSE METER 296 PROG IMS Observed: 07/18/2018 Status: UNK Source: [facility] 2:18 PM [facility] Patient Name: MAURI QUINONES [address] [facility] Date of : [address] [address] Unit Number: [id number] Progress Note-Hospitalist Patient Status: ADM IN Attending Doctor: Jensen Peguero DO Service Date: 07/18/18 1418 Chief Complaint Chief Complaint Right hip pain Subjective S: (2 ROS minimum) Feels very stable, continued to have right hip pain but patient is not making big problem about it, he continued to have urine retention requiring straight cath and patient said he had similar experience when he had his open heart surgery and he required Mc catheter for 1 week, bladder scan are not showing more than 270 mL of urine since last night, his creatinine was noted to be very elevated comparing to the baseline and his sodium is 131, patient hemodynamically stable but I think he should stay in the hospital for worsening kidney function and urinary retention. Objective (ROS) Nursing Vitals Vital Signs (Last) Result Date Time Pulse Ox 95 07/18 1140 B/P 134/61 07/18 1140 Temp 97.8 07/18 1140 Pulse 64 07/18 1140 Resp 16 07/18 1140 O2 Delivery NASAL CANNULA 07/18 0440 O2 Flow Rate 2 07/18 0440 General Appearance Comfortable Physical Exam Neurological / Psychiatric Alert, Orientation X3 HEENT EOMI, PERRL Neck No JVD, No Enlarged Thyroid Respiratory Normal Breathing Effort, Clear Lungs Cardiovascular Heart RRR, No M / R / G Gastrointestinal Normal Bowel Sounds, Non Tender Musculoskeletal No Edema Skin No Rash, Warm / Dry Diagnostic Data: Medications Current Sig/Cipriano Start time Last Medication Dose Route Stop Time Status Admin Al Hydrox/Mg Hydrox/ 30 ML Q4HPRN PRN 07/17 1100 AC Simethicone PO (MAALOX (ALAMAG)PLUS ORAL LIQ) Aspirin 162 MG QDAYWM 07/18 0800 AC 07/18 (ECOTRIN TAB.EC) PO 0749 Diphenhydramine HCl 25 MG Q6HPRN PRN 07/17 1100 AC (BENADRYL CAP) PO Docusate Calcium 240 MG Q12H@21 07/17 2100 AC 07/18 (SURFAK CAP) PO 0749 Doxazosin Mesylate 2 MG BID 07/17 2100 AC 07/18 (CARDURA TAB) PO 0756 Enoxaparin Sodium 40 MG Q24H 07/18 0900 AC 07/18 (LOVENOX D.SYR) SC 0750 Gabapentin 600 MG QHS 07/17 2200 AC (NEURONTIN CAP) PO Hydromorphone HCl 2 MG Q3HPRN PRN 07/17 1100 AC (DILAUDID D.SYR) IM Insulin Glargine 17 UNITS QHS 07/18 2200 AC (LANTUS SOLOSTAR PEN) SC Insulin Human Lispro See Dose WMHS 07/17 2200 AC 07/18 (humaLOG/novoLOG PEN) Insts (1) SC 1103 Lactated Ringer's 1,000 ML CONT 07/17 1100 AC 07/17 (Lactated Ringers) IV 07/19 1059 2239 Latanoprost 1 GTT QHS 07/17 2200 AC (XALATAN 0.005% OPTH OU DROP) Oxycodone/ 1 UDTAB Q3HPRN PRN 07/17 1100 AC Acetaminophen PO (percoCET-5/325 TAB) Oxycodone/ 2 UDTAB Q3HPRN PRN 07/17 1100 AC 07/18 Acetaminophen PO 0850 (percoCET-5/325 TAB) Pantoprazole Sodium 40 MG QDAYAC 07/18 0700 AC 07/18 (PROTONIX TAB) PO 0621 Pravastatin Sodium 80 MG QHS 07/17 2200 AC (PRAVACHOL TAB) PO Sodium Chloride 1,000 ML ONCE ONE 07/18 1200 AC 07/18 (Sodium Chloride IV 07/19 0119 1236 0.9%) Sodium Chloride 3 ML Q8H 07/17 1400 AC (Sodium Chloride IV 0.9% FLUSH D.SYR) Sodium Chloride 3 ML PRN PRN 07/17 1100 AC (Sodium Chloride IV 0.9% FLUSH D.SYR) Trimethobenzamide HCl 200 MG Q6HPRN PRN 07/17 1100 AC (TIGAN VIAL) IM Zolpidem Tartrate 5 MG QHSPRN PRN 07/17 1100 AC (AMBIEN TAB) PO Dose Instructions: (1)Insulin Human Lispro (humaLOG/novoLOG PEN): 2-10 Units Lab 24hr (CBC/BMP Fishbone) 07/18/18 1054: Whole Bld Glucose 293 H 07/18/18 0832: Troponin I 0.023 07/18/18 0832: [Embedded Image Not Available] Anion Gap 10, Est GFR ( Amer) 30, Est GFR (Non-Af Amer) 25, BUN/Creatinine Ratio 21 , Glucose 259 H, Total Calcium 7.9 L, Iron 58 L, TIBC 330, Iron Saturation 18 L, Ferritin 344.7, RBC 3.64 L, MCV 92.6, MCHC 32.0, RDW 18.1 H, MPV 9.5, Nucleated RBCs 0.1 07/18/18 0716: Whole Bld Glucose 212 H 07/17/18 2158: Whole Bld Glucose 245 H Assessment and Plan Conclusion 1. Urinary retention Acute Continue to monitor bladder scans every 6 hours, straight cath when urine residual greater than 250 mL. If no improvement within the next 24 hours, Mc catheter should be placed for short-term and patient need to follow-up with urologist as an outpatient. 2. Hyponatremia Acute Suspected related to diuretics and mild volume depletion. We will give 1 L of IV fluid and recheck BMP in a.m. 3. Acute renal failure superimposed on stage 3 chronic kidney disease Acute Worsening creatinine could be related to volume depletion postop with diuretics use however cannot rule out obstructive uropathy from urinary attention. We will continue monitoring bladder scans and challenge the patient's with hydration and repeat BMP in a.m. Continue holding all nephrotoxic medication and diuretics. 4. Arthritis Chronic To the right hip status post surgical intervention. 5. Systolic heart failure Chronic Compensated at this time, hold diuretics. 6. Coronary artery disease Chronic No acute issue. 7. Hypertension Chronic Stable blood pressure, avoid hypotension. 8. IDDM (insulin dependent diabetes mellitus) Chronic Continue with Lantus and sliding scale insulin. Stay Reason/Anticipated Disch Awaiting Test Results Disclaimer This dictation was created using voice recognition software. Phonetic and/or minor grammatical errors may exist. eSign Date and Time Sigrid Hodge MD Verified/Reviewed by 07/18/18 1427 OTAR Observed: 07/18/2018 Status: UNK Source: [facility] 1:09 PM [facility] REPOSITORY Occupational Therapy Inpatient Evaluation Medical Diagnosis: Removal of hardware R LE, KEMAR R hip lateral approach by Dr. Peguero 07/17/18 OCCUPATIONAL PROFILE AND HISTORY Therapy Diagnosis: Rank Code Description 1 R26.81 Unsteadiness on feet 2 Z74.1 Need for assistance with personal care Demographics: Age: 62Y Gender: Male Primary Language: Indonesian Preferred Language: Indonesian Referring Service/Team: Orthopedics Past Medical History: Past Medical History CAD with three-vessel coronary artery bypass graft, diabetes, hypertension, non-STEMI, systolic congestive heart failure with an EF of 30%, anemia, chronic renal failure stage III, glaucoma, valvular heart disease, cardiomyopathy, pulmonary hypertension. Past Surgical History CABG x3, arthroscopic, femur surgery, ORIF. History of Present Illness: Date of Surgery: 07/17/18 Additional Information: Patient is a 62-year-old male patient of Dr. gould, past medical history CAD with three-vessel coronary artery bypass graft, diabetes, hypertension, non-STEMI, congestive heart failure with an EF of 45% who presents to [facility] July 17 for a removal of hardware and right total hip arthroplasty by Dr. Peguero. Patient states he has been having trouble with his head for a year tried physical therapy, injections, and [id number] pain medication with no relief. He has been having difficulty getting in and out of a car putting on his socks and shoes secondary to the right hip pain and stiffness. Due to failed conservative management patient elected for surgical repair. Patient reports mild postoperative pain. He denies chest pain, dyspnea, dizziness, fever, chills, nausea, or vomiting. He has been asked to see for medical management. Date of Admission: 07/17/2018 6:00:00 AM Rehabilitation Precautions/Restrictions: WBAT RLE, Lateral hip precautions Imaging/Testing Results from Chart: N/A [facility] PATIENT NAME: MAURI QUINONES [address] [facility] [address] MEDICAL REC #: [id number] [place] [address] ADMIT DATE: 07/17/18 SERVICE DATE: 07/18/18 Occupational Therapy Assessment ATTENDING MARIE: Jensen Peguero DO Prior Level of Functioning: Self Care: Patient completed the activities by him/herself, with or without an assistive device, with no assistance from a helper. Functional Cognition: Patient completed the activities by him/herself, with or without an assistive device, with no assistance from a helper. Independent with mobility and ADLs w/out AD, denies falls, shared house work Patient/Caregiver Goals: Patient's functional goals: Go home Pain: Patient currently has pain. Location: R hip Type: Acute Quality: Aching. Pain Scale: Visual Analog (VAS). Patient reports a pain level of 7 out of 10. Patient's acceptable level of pain 3 out of 10. Pain does not interfere with any activity at this time. Pain is alleviated by: pain meds, ice Pain is exacerbated by: movement Interventions: Repositioned patient. Home Environment: Patient lives with , who is able to assist patient at discharge. Patient lives in a single family home. Home is three levels. Patient is not required to manage stairs within the home. First floor full bathroom setup available. There are 2 steps to enter the home, with grab bar Equipment Owned: tub shower combo w/sliding doors, tub bench, ww, cane, raised toilet seat Marital Status: M Social History: Children: It is unknown whether patient has children Employment Status: N/A Recreational Activities/Hobbies: N/A OBJECTIVE/OCCUPATIONAL PERFORMANCE Activities of Daily Living Current Status Previous Status ADLs Feeding Independent - Grooming Modified independent - Bathing-UE Modified independent - Bathing-LE Supervision - Dressing-UE Modified independent - Dressing-LE Minimal assistance - Toileting Supervision - Pt required min A to thread pants and for sock R LE. Pt reports will assist. Pt did demo good understanding of and use of sock aid to assist however pt does not plan to use at home [facility] PATIENT NAME: MAURI QUINONES [address] [facility] [address] [place] MEDICAL REC #: [id number] [place] [address] ADMIT DATE: 07/17/18 SERVICE DATE: 07/18/18 Occupational Therapy Assessment ATTENDING TIFFANYY: Jensen Peguero DO AM-PAC Daily Activities: Putting On/Taking Off Lower Body Clothing: A little help needed Bathing:: A little help needed Toileting: A little help needed Putting On/Taking Off Upper Body Clothing: No help needed Grooming: No help needed Eating a Meal: No help needed Raw Score = 21 , AM-PAC t-Scale Score = 44.27 and G-Code Modifier = CJ Functional Mobility: Bed Mobility: All bed mobility including supine to sit, rolling, scooting. requiring stand by assistance. HOB elevated, exit bed L side, v/c for technique, no physical assistance required Transfers: Patient transferred sit to/from stand requiring supervision. min v/c for proper hand placement and technique Locomotion/Gait/Ambulation: Patient was supervision with gait/ambulation for 200' . Patient requires the following assistive device(s): Rolling walker. pt demo fair reciprocal gait, no overt LOB Range of Motion Upper Extremity: Grossly within functional limits Strength Upper Extremity: Grossly within functional limits Balance: Dynamic balance in a seated position is good. w/in precautions Dynamic balance in a standing position is good. Tone/Spasticity: No relevant impairments. Sensation: Grossly intact. Fine Motor Coordination: Fine motor coordination was not assessed. Gross Motor Coordination: Upper extremity gross motor coordination is intact. Edema: Edema is present. Location: Right lower extremity edema- Minimal. Location: Lower Extremity Function: R LE pt demo fair post op ROM and wb tolerance, all precautions maintained Vision: Within functional limits. Cognition: Within functional limits. Perceptual Skills: Within functional limits. Psychosocial: Within normal limits Interventions: Evaluation LOW Complexity [facility] PATIENT NAME: MAURI QUINONES [address] [facility] [address] [place] MEDICAL REC #: [id number] [place] [address] ADMIT DATE: 07/17/18 SERVICE DATE: 07/18/18 Occupational Therapy Assessment ATTENDING PHY: Jensen Peguero DO Self Care/Home Management: UB and LB dressing, instruction in use of AE and follow through w/precautions and safety Pain Reassessment: No significant change in pain during session. Education: The patient's preferred learning method is: Explanation, Demonstration Barriers to Learning: No barriers Learning Needs: Precautions. Plan of care. Rehabilitation techniques and procedures. Safety. Functional activities/mobility. Equipment. Education Provided: Precautions. Plan of care. Activities of daily living. Bed mobility. Functional transfers. Equipment. Safety. Audience: Patient. Mode: Explanation. Demonstration. Response: Verbalized understanding. Demonstrated skill. ASSESSMENT Clinical Performance Deficits: Impaired instrumental ADLs, Impaired functional mobility Equipment Recommended: Hip kit Rehabilitation Potential: Not applicable Motivation/Commitment to Therapy: Not applicable. Response to Evaluation: Pt tolerated OT assessment and treatment well. Pt demo no increase in pain, no fatigue and vitals WFL. Pt performed transfer and mobility tasks at supv level and only required minimal A for LB self care. Pt demo good understanding and follow through w/precautions and safety. No further OT needed. Recommend home w/supv upon d/c Activity/Participation Problem List and Goals: No activity/participation limitations. Treatment Goals: Not applicable. PLAN Treatment Frequency, Duration and Interventions: Occupational Therapy services are discontinued at this time secondary to: No need for skilled therapy intervention at this time. Recommended Occupational Therapy Follow Up: Upon acute care discharge, the following is currently recommended: Home exercise program. Recommended Consults: None currently. Development of Plan of Care: Patient participated in plan of care development today. [facility] PATIENT NAME: MAURI QUINONES [address] [facility] [address] [place] MEDICAL REC #: [id number] [place] [address] ADMIT DATE: 07/17/18 SERVICE DATE: 07/18/18 Occupational Therapy Assessment ATTENDING MARIE: Jensen Peguero DO If there are any questions regarding this service, please contact the Acute Therapy Department at extension [phone] CARE WILL BE TRANSFERRED TO THE (CHOICE OF ACUTE OR REHAB) OCCUPATIONAL THERAPIST Communication to Nursing: No updates at this time. Location of Patient at End of Therapy Session: In chair, call light within reach Services: Total Billed: 15 minutes (Timed: 15, Untimed: 0) 15.00 Timed: [58934] ADL-HOME MANAGEMENT EA 15 MIN 0.00 Untimed: [01145] OT-EVALUATION LOW COMPLEXITY 0.00 Untimed: [] OT Evaluation ORDER Signed by: Nimco Unger 07/18/2018 13:36:05 [facility] PATIENT NAME: MAURI QUINONES [address] [facility] [address] [place] MEDICAL REC #: [id number] [place] [address] ADMIT DATE: 07/17/18 SERVICE DATE: 07/18/18 Occupational Therapy Assessment ATTENDING TIFFANYY: Jensen Peguero DO GLUCOSE METER Collected: 07/18/2018 Status: F Source: [facility] 10:54 AM [facility] TYPE CODE TESTS RESULT OUT OF REFERENCE UNITS RANGE LAB L500.92124 85-125 MG/DL High GLUCOSE METER 293 PTAR Observed: 07/18/2018 Status: UNK Source: [facility] 9:23 AM [facility] REPOSITORY Physical Therapy Inpatient Evaluation Medical Diagnosis: R hip removal of hardware and THR Therapy Diagnosis: Rank Code Description 1 R26 Abnormalities of gait and mobility 2 M62.81 Muscle weakness (generalized) Demographics: Age: 62Y Gender: Male Primary Language: Indonesian Preferred Language: Indonesian Referring Service/Team: Orthopedics Past Medical History: Past Medical History CAD with three-vessel coronary artery bypass graft, diabetes, hypertension, non-STEMI, systolic congestive heart failure with an EF of 30%, anemia, chronic renal failure stage III, glaucoma, valvular heart disease, cardiomyopathy, pulmonary hypertension. Past Surgical History CABG x3, arthroscopic, femur surgery, ORIF. History of Present Illness: Date of Surgery: 07/17/18 Additional Information: Patient is a 62-year-old male patient of Dr. gould, past medical history CAD with three-vessel coronary artery bypass graft, diabetes, hypertension, non-STEMI, congestive heart failure with an EF of 45% who presents to [facility] July 17 for a removal of hardware and right total hip arthroplasty by Dr. Peguero. Patient states he has been having trouble with his head for a year tried physical therapy, injections, and [id number]-[id number]-ewbexxz pain medication with no relief. He has been having difficulty getting in and out of a car putting on his socks and shoes secondary to the right hip pain and stiffness. Due to failed conservative management patient elected for surgical repair. Patient reports mild postoperative pain. He denies chest pain, dyspnea, dizziness, fever, chills, nausea, or vomiting. He has been asked to see for medical management. Date of Admission: 07/17/2018 6:00:00 AM Rehabilitation Precautions/Restrictions: WBAT RLE (lateral hip precautions, Sudhir) Imaging/Testing Results from Chart: N/A SUBJECTIVE Prior Level of Functioning: Indoor Mobility: Patient completed the activities by him/herself, with or [facility] PATIENT NAME: MAURI QUINONES [address] [facility] [address] [place] MEDICAL REC #: [id number] [place] [address] ADMIT DATE: 07/17/18 SERVICE DATE: 07/18/18 Physical Therapy Assessment Report ATTENDING PHY: Jensen Peguero DO without an assistive device, with no assistance from a helper. Stairs: Patient completed the activities by him/herself, with or without an assistive device, with no assistance from a helper. Independent with mobility and ADLs Prior Device Use: Performance GG110. Prior Device Walker Yes Patient/Caregiver Goals: Patient's functional goals: Go home Pain: Patient currently has pain. Location: R hip Type: Acute Quality: Aching. Pain Scale: Visual Analog (VAS). Patient reports a pain level of 6 out of 10. Patient's acceptable level of pain 3 out of 10. Interferes with physical activity. Pain is alleviated by: medication Pain is exacerbated by: standing Interventions: Repositioned patient. Home Environment: Patient lives with , who is able to assist patient at discharge. Patient lives in a single family home. Home is single level. Patient is not required to manage stairs within the home. First floor full bathroom setup available. There are 1 steps to enter the home, with no hand railings. There is no ramp available to enter home. Equipment Owned: walker, but significant use and needs replacement Social History: Marital Status: Children: It is unknown whether patient has children Employment Status: N/A Recreational Activities/Hobbies: N/A OBJECTIVE Cognitive Screen Responsiveness: Alert. Orientation: Oriented to person, place, time, and situation. Following Commands: Patient is able to follow 3-step commands. Range of Motion Upper Extremity: Grossly within functional limits Lower Extremity: Not within functional limits LLE WFL, RLE: WFL considering hip precautions Strength Upper Extremity: Grossly within functional limits Lower Extremity: Not within functional limits LLE WFL RLE: Hip flexion 2+/5, hip abduction not assessed, knee 4/5, ankle 5/5 [facility] [facility] PATIENT NAME: MAURI QUINONES [address] [facility] [address] MEDICAL REC #: [id number] [place] [address] ADMIT DATE: 07/17/18 SERVICE DATE: 07/18/18 Physical Therapy Assessment Report ATTENDING PHY: Jensen Peguero DO Tone/Spasticity: No relevant impairments. Sensation: Grossly intact. Balance: Static balance in a seated position is good. Dynamic balance in a seated position is good. Static balance in a standing position is fair. Dynamic balance in a standing position is fair. Therapeutic/Functional Activities: Bed Mobility: Pt reports no issues with bed mobility and having already performed with OT, deferring performance during PT Transfers: Patient transferred sit to/from stand with modified independence. use of BUE, increased time Locomotion/Gait/Ambulation: Patient was modified independent with gait/ambulation for 150' . Patient requires the following assistive device(s): Rolling walker. slow speed, shuffling steps, antalgic gait with WB on the RLE Gait Deviations: Stairs: Patient was requiring supervision for 1 . Patient used the following equipment: Rolling Walker. AM-PAC Basic Mobility: Turning Over in Bed: A little difficulty Sitting/Standing Chair with Arms: No difficulty Lying on Back to Sitting on Side of Bed: A little difficulty Moving To/From Bed to Chair: No help needed Walking in Hospital Room: No help needed Climbing 3-5 Steps with Railing: A little help needed Raw Score = 21 , AM-PAC t-Scale Score = 50.25 and G-Code Modifier = CJ Vital Signs: Not assessed. Interventions: Evaluation LOW Complexity No treatment provided today. Pain Reassessment: No significant change in pain during session. Education: The patient's preferred learning method is: Explanation Barriers to Learning: Acuity of illness Learning Needs: Precautions. Pain management. Plan of care. Rehabilitation techniques and procedures. Safety. Functional activities/mobility. Education Provided: Precautions. Pain management. Plan of care. Rehab techniques and procedures. HEP, lateral hip precautions, mobility precautions, stair training Safety issues and interventions. Fall protocol. Functional transfers. [facility] PATIENT NAME: MAURI QUINONES [address] [facility] [address] MEDICAL REC #: [id number] [place] [address] ADMIT DATE: 07/17/18 SERVICE DATE: 07/18/18 Physical Therapy Assessment Report ATTENDING PHY: Jensen Peguero DO Audience: Patient. Mode: Explanation. Response: Verbalized understanding. ASSESSMENT Problem List: Decreased strength, Impaired ambulation, Impaired stair/curb negotiation Strengths: Independent premorbid function Rehabilitation Potential: Not applicable Motivation/Commitment to Therapy: Not applicable. Response to Evaluation: The patient is a pleasant 62 y.o. male admitted now s/p removal of R hip hardware and R THR with lateral precautions. Strength was impaired as listed below. He deferred bed mobility, reporting independence when performing during OT session. Transfer to standing was performed independently, then ambulation 150' with WW and 1 stair negotiation with supervision. The patient is clear for D/C home from PT standpoint with OPPT. Activity/Participation Problem List and Goals: Functional Impairment: Changing and Maintaining Body Position Modifier: S4517-SS (at least 20%, but less than 40% impaired, limited, or restricted) Goal: c Goal Modifier: G0508-TE (at least 20%, but less than 40% impaired, limited, or restricted) Discharge Status for Changing and Maintaining Body Position: Resolved Functional Impairment Discharge Modifier: S9649-XK (at least 20%, but less than 40% impaired, limited, or restricted) Treatment Goals: Not applicable. PLAN Treatment Frequency, Duration and Interventions: Physical Therapy services are discontinued at this time secondary to: Pt has met all goals necessary for D/C home. Recommend outpatient PT to address further impairments. Recommended Physical Therapy Follow Up: Upon acute care discharge, the following is currently recommended: Outpatient Physical Therapy. Recommended Equipment: Rolling walker. . Recommended Consults: None currently. Development of Plan of Care: Patient participated in plan of care development today. If there are any questions regarding this service, please contact the Acute Therapy Department at extension [phone] Communication to Nursing: Walking: +1 and WW [facility] PATIENT NAME: MAURI QUINONES [address] [facility] [address] MEDICAL REC #: [id number] [place] [address] ADMIT DATE: 07/17/18 SERVICE DATE: 07/18/18 Physical Therapy Assessment Report ATTENDING PHY: Jensen Peguero DO Location of Patient at End of Therapy Session: In chair, call light within reach Services: Total Billed: 0 minutes (Timed: 0, Untimed: 0) 0.00 Untimed: [95998] PT-EVALUATION LOW COMPLEXITY 0.00 Untimed: [] PT Evaluation ORDER 0.00 Untimed: [G8981] PT-Changing and Maintaining Body Position-CJ 0.00 Untimed: [G8982] CH-Mcdt-Plotvnyq and Maintaining Body Position-CJ 0.00 Untimed: [G8983] TE-CV-Rzibnyfn and Maintaining Body Position-CJ Signed by: Emmanuel Israel, 07/18/2018 09:29:20 [facility] PATIENT NAME: MAURI QUINONES [address] [facility] [address] MEDICAL REC #: [id number] [place] [address] ADMIT DATE: 07/17/18 SERVICE DATE: 07/18/18 Physical Therapy Assessment Report ATTENDING PHY: Jensen Peguero DO CBC Collected: 07/18/2018 Status: F Source: [facility] 8:32 AM [facility] REPOSITORY Order Comment: Kountze: M TYPE CODE TESTS RESULT OUT OF RANGE REFERENCE UNITS LAB L200.94912 4.5-11.0 K/CU MM High WBC 13.5 LAB L200.76167 4.50-6.00 M/CU MM Low RBC 3.64 LAB L200.68499 13.5-17.5 G/DL Low HGB 10.8 LAB L200.12776 41.0-53.0 % Low HCT 33.7 LAB L200.31599 80.0-99.0 fl Normal MCV 92.6 LAB L200.67742 32.0-36.0 GM/DL Normal MCHC 32.0 LAB L200.72026 11-14.5 High RDW 18.1 LAB L200.46111 9.4-12.4 Normal MPV 9.5 LAB L200.35008 150-450 K/CU MM Normal PLT 210 LAB L200.93137 Less than 1 % Normal NRBC 0.1 Performed By: #### L200.97230 #### [facility] [address] [place] [address] TROPONIN I Collected: 07/18/2018 Status: F Source: [facility] 8:32 AM [facility] REPOSITORY Order Comment: Kountze: M TYPE CODE TESTS RESULT OUT OF RANGE REFERENCE UNITS LAB L550.46169 0.000-0.045 NG/ML Normal TROPONIN I 0.023 Performed By: #### L550.04383 #### [facility] [address] [place] [address] BMP Collected: 07/18/2018 Status: F Source: [facility] 8:32 AM [facility] REPOSITORY Order Comment: Kountze: M TYPE CODE TESTS RESULT OUT OF RANGE REFERENCE UNITS LAB L500.02130 136-145 MMOL/L Low NA 131 LAB L500.59532 3.5-5.1 MMOL/L Normal K 5.1 LAB L500.88416 98-107 MMOL/L Low CL 93 LAB L500.13839 21-32 MMOL/L Normal CO2 28 LAB L500.95366 5-16 MMOL/L Normal AGAP 10 LAB L500.42959 70-100 MG/DL High GLU 259 Result Comment: 70-100- Normal Fasting; 100-125 Impaired Fasting; greater than 126 on more than one result- Diabetes. ADA guidelines. Results may be falsely elevated after the administration of Sulfapyridine. Results may be falsely depressed after the administration of Sulfasalazine. LAB L500.73784 7-26 MG/DL High BUN 56 LAB L500.01309 0.670-1.170 MG/DL High CREAT 2.650 Result Comment: Patients receiving either N-Acetylcysteine (NAC) or Metamizole prior to venipuncture, may have falsely depressed results. LAB L500.23734 15-24 Normal BUN/CREA 21 LAB L500.21262 8.5-10.1 MG/DL Low CALCIUM TOTAL 7.9 Performed By: #### L500.77788, L500.96245, L500.17584, L500.76998 #### [facility] [address] [place] [address] GFR EST Collected: 07/18/2018 Status: F Source: [facility] 8:32 AM [facility] REPOSITORY Order Comment: Kountze: M TYPE CODE TESTS RESULT OUT OF RANGE REFERENCE UNITS LAB L500.15430 ML/MIN Normal IF non-AFR 25 AMER LAB L500.46631 ML/MIN Normal IF 30 AMER Performed By: #### L500.35086, L500.75082, L500.45971, L500.06274 #### [facility] [address] [place] [address] IRON PANEL Collected: 07/18/2018 Status: F Source: [facility] 8:32 AM [facility] REPOSITORY Order Comment: Kountze: M TYPE CODE TESTS RESULT OUT OF RANGE REFERENCE UNITS LAB L500.88424 65-175 UG/DL Low IRON 58 Result Comment: Patients treated with metal-binding drugs (e.g.deferoxamine) may have depressed iron values, as chelated iron may not properly react in the Siemens iron assay. LAB L500.10968 221-481 UG/DL Normal TIBC 330 LAB L500.60923 30-44 % Low IRON SAT 18 Performed By: #### L500.86214, L500.33954, L500.14961, L500.41940 #### [facility] [address] [place] [address] FERR Collected: 07/18/2018 Status: F Source: [facility] 8:32 AM [facility] REPOSITORY Order Comment: Kountze: M TYPE CODE TESTS RESULT OUT OF RANGE REFERENCE UNITS LAB L500.18446 24.0-388.0 NG/ML Normal FERR 344.7 Performed By: #### L500.95369, L500.83851, L500.05517, L500.21759 #### [facility] [address] [place] [address] GLUCOSE METER Collected: 07/18/2018 Status: F Source: [facility] 7:16 AM [facility] TYPE CODE TESTS RESULT OUT OF REFERENCE UNITS RANGE LAB L500.69366 85-125 MG/DL High GLUCOSE METER 212 PROG.ORTHO Observed: 07/18/2018 Status: UNK Source: [facility] 6:12 AM [facility] Patient Name: MAURI QUINONES [address] [facility] Date of : [address] [place] [address] Unit Number: [id number] Progress Note-Ortho Patient Status: ADM IN Attending Doctor: Jensen Peguero DO Service Date: 07/18/18611 Progress Note - Ortho Subjective S: (2 ROS minimum) Patient seen and examined. He is complaining of urinary retention at this time. His been unable to void since surgery. He has been straight cathed one time. Pain is well controlled at this time. He has been up and ambulating without difficulty. Denies any fevers, chills, chest pain, shortness of breath. Tolerating diet well Objective Nursing Vitals Vital Signs (Last) Result Date Time Pulse Ox 97 07/18 15 O2 Delivery NASAL CANNULA 07/18 15 O2 Flow Rate 2 07/18 15 B/P 135/70 07/18 10 Temp 97.6 07/18 10 Pulse 61 07/18 10 Resp 16 07/18 10 Physical Exam General: Alert and oriented x3, no acute distress LE: SILT L2-S1 5/5 strength with DF/PF/EHL 2+ distal pulses - calf tenderness Dressing clean, dry, intact Diagnostic Data Lab 24hr (CBC/BMP [facility]) 07/17/18 2158: Whole Bld Glucose 245 H 07/17/18 1323: Whole Bld Glucose 134 H 07/17/18 0800: Whole Bld Glucose 110 07/17/18 0721: [Embedded Image Not Available] Assessment/Plan Conclusion 1. Arthritis Chronic Postop day 1 status post right total hip arthroplasty Weight-bear as tolerated right lower extremity DVT prophylaxis, pain control A straight cath as needed for urinary retention Possible discharge home today if doing well with physical therapy and able to void Physician Attestation Statement of Attestation I confirm that I have evaluated the patient, reviewed the history and physical, medications, diagnostic results, physical exam, assessment and plan of care of the patient. Disclaimer This dictation was created using voice recognition software. Phonetic and/or minor grammatical errors may exist. eSign Date and Time Blade Mendoza DO Verified/Reviewed by 07/18/18615 Mac Shipman DO GLUCOSE METER Collected: 07/17/2018 Status: F Source: [facility] 9:58 PM [facility] REPOSITORY TYPE CODE TESTS RESULT OUT OF REFERENCE UNITS RANGE LAB L500.23500 85-125 MG/DL High GLUCOSE METER 245 HP.IMS.CON Observed: 07/17/2018 Status: UNK Source: [facility] 1:36 PM [facility] REPOSITORY [facility] Patient Name: MAURI QUINONES [address] Date of : [address] [place] [address] Unit Number: [id number] CONSULTATION-HandP Patient Status: [facility] Attending Doctor: Jensen Peguero DO Service Date: 07/17/18 9826 History of Present Illness Referring Physician Jensen Peguero DO Consulted Provider Tani Martinez DO Source of Information Patient, Medical record Reason for Consult Medical movement Living Situation Home - Independent History of Present Illness Patient is a 62-year-old male patient of Dr. gould, past medical history CAD with three-vessel coronary artery bypass graft, diabetes, hypertension, non-STEMI, congestive heart failure with an EF of 45% who presents to [facility] July 17 for a removal of hardware and right total hip arthroplasty by Dr. Peguero. Patient states he has been having trouble with his head for a year tried physical therapy, injections, and over-the- counter pain medication with no relief. He has been having difficulty getting in and out of a car putting on his socks and shoes secondary to the right hip pain and stiffness. Due to failed conservative management patient elected for surgical repair. Patient reports mild postoperative pain. He denies chest pain, dyspnea, dizziness, fever, chills, nausea, or vomiting. He has been asked to see for medical management. Past Medical/Surgical Hx Past Medical History CAD with three-vessel coronary artery bypass graft, diabetes, hypertension, non-STEMI, systolic congestive heart failure with an EF of 30%, anemia, chronic renal failure stage III, glaucoma, valvular heart disease, cardiomyopathy, pulmonary hypertension. Past Surgical History CABG x3, arthroscopic, femur surgery, ORIF. Family/Social History Family History MOTHER, . FH: diabetes mellitus, Onset: Unknown. FH: heart attack, Onset: Unknown. FATHER, . FH: heart attack, Onset: Unknown. Family Hx Other/Comment Family history reviewed with patient Substances Denies use of: Alcohol, Tobacco, Recreational Drugs. Structured Exercise No Social Hx Patient states he lives with his . Denies tobacco, alcohol, illicit drug Advance Directives Advance Directives Full Code Allergies/Home Medications Allergies Coded Allergies: PREGABALIN (From LYRICA) (Mild, FACE SWELLS/BREAKS OUT 02/11/18) Home Medications Aspirin* (Aspir 81 MG Tab*) 81 MG TABLET. 162 MG PO QDAYWM, Ref 0 (Reported) LAST DOSE 07/07/[address] PEGUERO TO [place] WITH DR MAGALLON Entered as Reported by FLOYD VICENTE on 02/05/18 0946 Last Taken: 07/07/18 Last Action: Last Taken Edited on 07/17/18 075 by LYDIA MAYNARD Carvedilol 25 MG TABLET 25 MG PO BID, Ref 0 (Reported) Entered as Reported by FLOYD VICENTE on 02/05/18 0946 Last Taken: 25 mg on 07/17/18 0530 Last Action: Last Taken Edited on 07/17/18 0749 by LYDIA MAYNARD Celecoxib* (celeBREX 200MG CAP*) 200 MG CAPSULE 200 MG PO PRN PRN PAIN, Ref 0 (Reported ) LAST DOSE 2 WKS PREOP Entered as Reported by FLOYD VICENTE on 02/05/18 0948 Last Action: Reviewed on 07/17/18750 by LYDIA MAYNARD Doxazosin Mesylate* (Cardura 2MG Tab*) 2 MG TABLET 2 MG PO BID, Ref 0 (Reported) Entered as Reported by FLOYD VICENTE on 02/05/18 0947 Last Taken: 2 mg on 07/17/1830 Last Action: Last Taken Edited on 07/17/18 075 by LYDIA MAYNARD Furosemide* (Lasix 40MG Tab*) 40 MG TABLET 60 MG PO BIDAC, Ref 0 (Reported) Entered as Reported by PATTIE AUGUSTIN on 07/02/18 1502 Last Taken: 60 MG on 07/17/18 0530 Last Action: Last Taken Edited on 07/17/18 075 by LYDIA MAYNARD Gabapentin* (Neurontin Tab*) 600 MG TABLET 600 MG PO QHS, Ref 0 (Reported) Entered as Reported by PATTIE AUGUSTIN on 02/06/18 0935 Last Action: Reviewed on 07/17/18 075 by LYDIA MAYNARD Insulin Detemir (Levemir Flextouch Pen) 100 UNIT/1 ML INSULN.PEN 17 UNITS SC QHS, Ref 0 (Reported) Entered as Reported by FLOYD VICENTE on 02/05/18 0948 Last Action: Reviewed on 07/17/18750 by LYDIA MAYNARD Latanoprost* (Xalatan 0.005% Eye Drop*) 2.5 ML DROPS 1 GTT OU QHS, Ref 0 (Reported) Entered as Reported by FLOYD VICENTE on 02/05/18 0948 Last Action: Reviewed on 07/17/18750 by LYDIA MAYNARD Lisinopril* (Zestril 20MG Tab*) 20 MG TABLET 20 MG PO QDAY, Ref 0 (Reported) Entered as Reported by PATTIE AUGUSTIN on 07/02/18 1459 Last Action: Reviewed on 07/17/18750 by LYDIA MAYNARD Metolazone* (zaroXOLYN 2.5MG TAB*) 2.5 MG TABLET 5 MG PO SUN/, Ref 0 (Reported) Entered as Reported by FLOYD VICENTE on 02/05/18 0947 Last Taken: 5 MG on 07/17/18 0530 Last Action: Last Taken Edited on 07/17/18750 by LYDIA MAYNARD Pravastatin Sod* (Pravachol 80MG Tab*) 80 MG TABLET 80 MG PO QHS, Ref 0 (Reported) Entered as Reported by FLOYD VICENTE on 02/05/18 0946 Last Action: Reviewed on 07/17/18750 by LYDIA MAYNARD Tadalafil (Cialis) 20 MG TABLET 20 MG PO PRN PRN ., Ref 0 (Reported) Entered as Reported by FLOYD VICENTE on 02/05/18 0949 Last Action: Reviewed on 07/17/18750 by LYDIA MAYNARD Tramadol HCl* (Ultram 50MG Tab*) 50 MG TABLET 50 MG PO TID,PRN PAIN, Ref 0 (Reported) Entered as Reported by PATTIE AUGUSTIN on 07/02/18 1501 Last Action: Reviewed on 07/17/18750 by LYDIA MAYNARD Inpatient Medications Medications Current Sig/Cipriano Start time Last Medication Dose Route Stop Time Status Admin Al Hydrox/Mg Hydrox/ 30 ML Q4HPRN PRN 07/17 1100 AC Simethicone PO (MAALOX (ALAMAG)PLUS ORAL LIQ) Bisacodyl 5 MG ONCE ONE 07/18 1100 AC (DULCOLAX TAB.EC) PO 07/18 1101 Cefazolin Sodium 2 GM Q8H@09 07/17 1700 AC (ANCEF VIAL) IV 07/18 0129 Sodium Chloride 50 ML (Sodium Chloride 0.9%) Diphenhydramine HCl 25 MG Q6HPRN PRN 07/17 1100 AC (BENADRYL CAP) PO Docusate Calcium 240 MG Q12H@21 07/17 2100 AC (SURFAK CAP) PO Enoxaparin Sodium 40 MG Q24H 07/18 0900 AC (LOVENOX D.SYR) SC Hydromorphone HCl 2 MG Q3HPRN PRN 07/17 1100 AC (DILAUDID D.SYR) IM Lactated Ringer's 1,000 ML CONT 07/17 1100 AC (Lactated Ringers) IV 07/19 1059 Oxycodone/ 1 UDTAB Q3HPRN PRN 07/17 1100 AC Acetaminophen PO (percoCET-5/325 TAB) Oxycodone/ 2 UDTAB Q3HPRN PRN 07/17 1100 AC Acetaminophen PO (percoCET-5/325 TAB) Pantoprazole Sodium 40 MG QDAYAC 07/18 0700 AC (PROTONIX TAB) PO Sodium Chloride 3 ML Q8H 07/17 1400 AC (Sodium Chloride IV 0.9% FLUSH D.SYR) Sodium Chloride 3 ML PRN PRN 07/17 1100 AC (Sodium Chloride IV 0.9% FLUSH D.SYR) Trimethobenzamide HCl 200 MG Q6HPRN PRN 07/17 1100 AC (TIGAN VIAL) IM Zolpidem Tartrate 5 MG QHSPRN PRN 07/17 1100 AC (AMBIEN TAB) PO Review of Systems ROS: Other Constitutional - [Denies any fever, chills, fatigue.] Eyes - [Denies any blurred vision, double vision.] HEENT -[Denies any difficulty swallowing, headaches, or sore throat. Reports hard of hearing Cardiovascular - [Denies any chest pain, chest pressure, palpitations or dizziness.] Respiratory - [Denies any cough, hemoptysis. Reports shortness of breath on exertion. Gastrointestinal - [Denies any abdominal pain, diarrhea, nausea, or vomiting.] Genitourinary - [Denies any dysuria, hematuria. Musculoskeletal-reports right hip pain and, stiffness, swelling prior to surgery. Skin denies any jaundice, rash.] Neurologic - [Denies any blurred vision, double vision, slurred speech, headaches, or numbness and tingling.] Psychiatric - [Denies any anxiety, depression.] Physical Exam Vital Signs Vital signs and PACU are as follows Temperature 98.0, heart rate 61, respiratory rate 16, 97% on 3 L nasal cannula, blood pressure 119/64, blood sugar 134. Medications Current Sig/Cipriano Start time Last Medication Dose Route Stop Time Status Admin Al Hydrox/Mg Hydrox/ 30 ML Q4HPRN PRN 07/17 1100 AC Simethicone PO (MAALOX (ALAMAG)PLUS ORAL LIQ) Bisacodyl 5 MG ONCE ONE 07/18 1100 AC (DULCOLAX TAB.EC) PO 07/18 1101 Cefazolin Sodium 2 GM Q8H@07/17 1700 AC (ANCEF VIAL) IV 07/18 0129 Sodium Chloride 50 ML (Sodium Chloride 0.9%) Diphenhydramine HCl 25 MG Q6HPRN PRN 07/17 1100 AC (BENADRYL CAP) PO Docusate Calcium 240 MG Q12H@07/17 2100 AC (SURFAK CAP) PO Enoxaparin Sodium 40 MG Q24H 07/18 0900 AC (LOVENOX D.SYR) SC Hydromorphone HCl 2 MG Q3HPRN PRN 07/17 1100 AC (DILAUDID D.SYR) IM Lactated Ringer's 1,000 ML CONT 07/17 1100 AC (Lactated Ringers) IV 07/19 1059 Oxycodone/ 1 UDTAB Q3HPRN PRN 07/17 1100 AC Acetaminophen PO (percoCET-5/325 TAB) Oxycodone/ 2 UDTAB Q3HPRN PRN 07/17 1100 AC Acetaminophen PO (percoCET-5/325 TAB) Pantoprazole Sodium 40 MG QDAYAC 07/18 0700 AC (PROTONIX TAB) PO Sodium Chloride 3 ML Q8H 07/17 1400 AC (Sodium Chloride IV 0.9% FLUSH D.SYR) Sodium Chloride 3 ML PRN PRN 07/17 1100 AC (Sodium Chloride IV 0.9% FLUSH D.SYR) Trimethobenzamide HCl 200 MG Q6HPRN PRN 07/17 1100 AC (TIGAN VIAL) IM Zolpidem Tartrate 5 MG QHSPRN PRN 07/17 1100 AC (AMBIEN TAB) PO Laboratory Tests Test Result Date Time Chemistry Whole Bld Glucose (85 - 125 MG/DL) 134 H 07/17 1323 Hematology Hgb (13.5 - 17.5 G/DL) 11.7 L 07/17 0721 Hct (41.0 - 53.0 %) 36.9 L 07/17 0721 Preop labs and medical records reviewed Physical Exam Summary Constitutional - Patient appears well groomed, appropriate, alert. Eyes - Anicteric, normal conjunctiva. ENT - Head normocephalic,atraumatic. Oral mucosa pink and moist. Neck supple, trachea midline. Cardiovascular - Heart is regular rate and rhythm. No gallops, rubs, murmurs noted. No evidence of carotid bruit heard. Respiratory - nonlabored, regular, even. Clear to auscultation. Skin -right hip dressing dry and intact no shadowing noted. Otherwise skin appears warm, dry, intact. Gastrointestinal - Abdomen soft, bowel sounds present, nontender. No guarding or rebounding noted. Genitourinary - Not examined Lymph - No gross lymphadenopathy noted. Musculoskeletal - Grasps appear moderate in strength and equal. Pulses are +2. Bilateral lower extremity edema +1. Capillary refill less than 3 seconds. Toes warm and mobile Neurologic - Patient is alert and oriented and appropriate 3. Speech is clear. No facial droop noted. Psychiatric - Patient appears calm, no anxiety or depression noted. Conclusion / Plan Conclusion 1. Systolic heart failure Last echo showed an EF of 40-45% in 2017. Continue current medication regimen. 2. Coronary artery disease Continue medical patient is as at home. Daily troponin. EKG in a.m. 3. Hypertension Continue medications as at home. 4. Chronic renal disease, stage III Last GFR on July 04 was 48. BUN and creatinine elevated likely baseline we will repeat BMP in a.m. 5. Hyperlipidemia Continue home statin 6. Iron deficiency anemia Iron deficiency anemia related to chronic renal failure patient on iron supplementation and Procrit injections. we will continue medications as at home. 7. Arthritis Status post removal of hardware and right total hip arthroplasty. Surgery managing. DVT and GI prophylaxis per surgeon. Encourage incentive spirometry Thank you for allowing us to participate in the care of this patient. We will continue to follow him as needed through his hospital stay Stable Problems Problems not specifically addressed in the above plan are stable and do not warrant adjustment of the current method of therapy. Collaborating Physician Tani Martinez DO Disclaimer This dictation was created using voice recognition software. Phonetic and/or minor grammatical errors may exist. eSign Date and Time Donna Eldridge [employer] Verified/Reviewed by 07/17/18 1403 Tani Martinez DO GLUCOSE METER Collected: 07/17/2018 Status: F Source: [facility] 1:23 PM [facility] REPOSITORY TYPE CODE TESTS RESULT OUT OF REFERENCE UNITS RANGE LAB L500.78395 85-125 MG/DL High GLUCOSE METER 134 GLUCOSE METER Collected: 07/17/2018 Status: F Source: [facility] 8:00 AM [facility] REPOSIT[facility] TYPE CODE TESTS RESULT OUT OF RANGE REFERENCE UNITS LAB L500.52562 85-125 MG/DL Normal GLUCOSE METER 110 HH Collected: 07/17/2018 Status: F Source: [facility] 7:21 AM [facility] REPOSITORY Order Comment: Kountze: M TYPE CODE TESTS RESULT OUT OF RANGE REFERENCE UNITS LAB L200.34037 13.5-17.5 G/DL Low HGB 11.7 LAB L200.51236 41.0-53.0 % Low HCT 36.9 Performed By: #### L200.25398 #### [facility] [address] [place] [address] TS Collected: 07/17/2018 Status: F Source: [facility] 7:21 AM [facility] REPOSITORY Order Comment: Kountze: M Patient transfused or in the past 3 months: NO Is This Patient Going To Surgery? Y Surgery Date: 07/17/18 TYPE CODE TESTS RESULT OUT OF RANGE REFERENCE UNITS LAB B100.0400 O Normal BLOOD TYPE NEGATIVE LAB B100.0680 Normal ANTIBODY TNP SCREEN Result Comment: Patient was NOT transfused or in the past 3 months. Antibody screen not indicated. OR Observed: 07/17/2018 Status: UNK Source: [facility] 6:52 AM [facility] [place] REPOSITORY DATE OF SERVICE: 07/17/2018 PREOPERATIVE DIAGNOSIS: Traumatic osteoarthritis of the right hip, status post intertrochanteric fracture of the right hip with cephalomedullary nail and multiple screws. POSTOPERATIVE DIAGNOSIS: Traumatic osteoarthritis of the right hip, status post intertrochanteric fracture of the right hip with cephalomedullary nail and multiple screws. OPERATION: Removal of hardware and total hip replacement arthroplasty, right, utilizing a White and Nephew size 66 acetabular cup with a 40 mm 0 degree polyethylene liner, a size 16 Sabinal porous straight femoral component, 190 mm in length with a +4 40 mm Oxinium femoral head. SURGEON: Jensen Peguero M.D. ATOMIC WELDER: Radha Fitch PA-C; Fernandez Rosario DO, orthopedic resident; Yaya Boone, orthopedic resident. ANESTHESIA: General with local for postoperative pain management. BLOOD LOSS: 200 mL. COMPLICATIONS: None. HISTORY: Harrison is a 63-year-old white male who had an intertrochanteric fracture ten years ago, had to have an intramedullary nail put in and did well up until about the last two years. He has developed a significant amount of traumatic arthritis of the right hip, so much that he cannot work and barely get around so he is here today to remove the old nail and screws and do a total hip replacement on the right. We discussed that procedure with him, the risks, the benefits, and postoperative management, the rehabilitation efforts required postoperatively. He is aware of that and a consent was signed. PROCEDURE: Patient was brought down to the OR and after induction of general anesthesia was placed in a lateral decubitus position with the right hip up. The right hip was sterilely prepped and draped in the usual orthopedic fashion. First incision was a distal one over the distal locking screw. Once we had the head exposed, put in the appropriate hex head screwdriver and removed the distal locking mechanism. We then irrigated that and closed that with a 0 Vicryl suture, 3-0 Vicryl suture, and cristhian. We then back to the top of the hip, made an anterolateral approach through a lateral incision reflecting the gluteus medius and other structures anteriorly until the underlying hip was identified. It was then dislocated exposing the severely deformed and oval-shaped femoral head with large [facility] PATIENT NAME: MAURI QUINONES0 [facility] [address] MEDICAL REC #: [id number] [place] [address] ADMIT DATE: 07/17/18 DISCHARGE DATE: OPERATIVE REPORT ATTENDING PHY: Jensen Peguero DO osteophytes on the neck. We removed the proximal locking screw and then was able to remove the compression screw and then was able to remove the intramedullary nail. We then went ahead with the hip replacement utilizing straight stem Sabinal Ferrell, reaming, trialing, ended up going with a +4 head was better for stability and a 16 mm x 190 mm straight stem. We drilled four holes in the trochanter, placed number 5 Ethibond sutures through those for repair of the gluteus medius after reducing the hip. 200 mL blood loss, irrigated with the Aricept, saline, injected our local mixtures into the deep and superficial tissues, and then did a repair of the minimus with number 2, vastus lateralis with number 2, the gluteus medius and capsule with a number 5 and then the tensor with a number 1 suture. Subcutaneous tissues were closed with 3-0 Vicryl, cristhian, silver dressing. He tolerated the procedure quite well. Leg lengths appeared to be equal on the table. He was placed on his back, extubated, and taken to the recovery room in stable condition. Jensen Peguero DO [id number] [facility] File#: [id number] Verified/Reviewed by 07/20/18 0817 LILY [facility] PATIENT [facility] MEDICAL REC #: [id number] [place] [address] ADMIT DATE: 07/17/18 DISCHARGE DATE: OPERATIVE REPORT ATTENDING PHY: Jensen Peguero DO EKG Observed: 07/17/2018 Status: UNK Source: [facility] 6:00 AM [facility] [place] REPOSITORY Procedure Date and Time: 07/18/18 0800 Test Reason : RT Blood Pressure : / mmHG Vent. Rate : 067 BPM Atrial Rate : 067 BPM P-R Int : 238 ms QRS Dur : 118 ms QT Int : 456 ms P-R-T Axes : 032 -23 009 degrees QTc Int : 481 ms Sinus rhythm with sinus arrhythmia 1st degree AV block Inferior infarct , age undetermined Prolonged QT Abnormal ECG No previous ECGs available Confirmed by GENE MAHMOOD A. ([id number]) on 07/18/2018 10:11:11 AM Referred By: Donna Eldridge Confirmed By:Richard MAHMOOD M.D.FACC Flor DDandT: 07/18/18 0800 TDandT: [facility] PATIENT NAME: [facility] MEDICAL REC #: [id number] [place] [address] ADMIT DATE: 07/17/18 DISCHARGE DATE: ATTENDING PHY: Jensen Peguero DO ELECTROCARDIOGRAM REPORT CLB cc: [facility] PATIENT NAME: [facility] MEDICAL REC #: [id number] [place] [address] ADMIT DATE: 07/17/18 DISCHARGE DATE: ATTENDING PHY: Jensen Peguero DO ELECTROCARDIOGRAM REPORT US KIDNEY Observed: 07/17/2018 Status: F Source: [facility] 6:00 AM [email or web address] Ordering Physician: Sigrid Hodge MD 07/19/2018 11:17 AM RENAL ULTRASOUND Comparison: None Clinical Statement: Acute kidney injury FINDINGS: The right and left kidneys measure 13.0 cm in longitudinal dimension each. There is no abnormal distention of either collecting system, shadowing calculus or mass. There is no abnormal perinephric fluid collection. Cortical-medullary differentiation is adequately maintained. IMPRESSION: Normal renal ultrasound. No abnormal distention. ---- Electronic Signature on File ---- Signed By: Nando Elizabeth MD [email or web address] Dictated: 07/19/2018 7:32 PM Signed: 07/19/2018 7:36 PM Reported By: NANDO ELIZABETH M.D. Signed By: NANDO ELIZABETH M.D. CR Observed: 07/17/2018 Status: UNK Source: [facility] 6:00 AM GRAY [email or web address] DATE OF CONSULTATION: 07/20/2018 REASON FOR CONSULTATION: Acute kidney injury. HISTORY OF PRESENT ILLNESS: This is a 62-year-old hypertensive gentleman with no history of renal problems in the past, who underwent an elective right hip total arthroplasty on July 17. Postoperatively he has done well from a surgery standpoint. Serum creatinine from 1.4 on admission has slowly risen to 3.3 this morning for which a nephrology consultation has been requested. Given GARRET, lisinopril was discontinued yesterday. Likewise lactated Ringers was discontinued yesterday for a potassium of 5.4. Apparently he had acute urinary retention for which a Mc catheter was placed; it drained 700 mL right away. Hemodynamically he has been relatively stable. Good urine output. Presently resting comfortably in no distress. Denies chest pain, shortness of breath, nausea or vomiting. He did have an episode of emesis yesterday. States oral intake has been stable. No recent NSAIDs or IV contrast exposure. PAST MEDICAL HISTORY: 1. Hypertension. 2. Coronary artery disease status post CABG. 3. Diabetes mellitus. 4. Congestive heart failure. 5. Possible CKD 3. 6. Cardiomyopathy. 7. Pulmonary hypertension. 8. Recent hip surgery. ALLERGIES: LYRICA. SOCIAL HISTORY: Denies smoking or alcohol. FAMILY HISTORY: Noncontributory. REVIEW OF SYSTEMS: As above. MEDICATIONS AT HOME: Included: 1. Aspirin. 2. Coreg. 3. Celecoxib. 4. Cardura. 5. Lasix. 6. Neurontin. 7. Insulin. 8. Lisinopril. [facility] PATIENT NAME: MAURI QUINONES [address] [facility] [address] MEDICAL REC #: [id number] [place] [address] ADMIT DATE: 07/17/18 DISCHARGE DATE: CONSULTATION REPORT ATTENDING PHY: Jensen Peguero DO 9. Metolazone. 10. Pravastatin. 11. Tramadol. CURRENT MEDICATIONS: Include: 1. Hydrocodone. 2. Insulin. 3. Lovenox. 4. Aspirin. 5. Protonix. 6. Neurontin. 7. Pravastatin. 8. Cardura. LABORATORY DATA PERTINENT FROM THIS MORNING: Sodium 128, potassium 5.4, chloride 92, CO2 28, BUN 64, creatinine 3.3. total white count 7000, hemoglobin 9.4, hematocrit 29. Urinalysis notes trace protein, small blood, negative nitrites, sodium 22, urine chloride less than 15. Renal ultrasound unremarkable. PHYSICAL EXAMINATION: Vital signs: Temperature 99.9, heart rate 67, blood pressure 125/70. Urine output 700 mL overnight. HEENT: Unremarkable. Lungs: Slightly decreased at bases. Cardiovascular: Regular. Lower extremities: No edema. IMPRESSION: 1. Acute kidney injury, likely prerenal etiology, exacerbated by diuretics and VANESSA inhibitors. 2. Hyperkalemia, mild, secondary to no. 1, and potassium supplementation. 3. Hyponatremia. 4. Anemia. 5. Acute urinary retention, status post Mc catheter placement. 6. Status post right hip total arthroplasty. RECOMMENDATIONS: 1. Agree with workup ordered including renal ultrasound. 2. Check chest x-ray to evaluate lung smith. IV fluids, isotonic saline unless chest x-ray dictates otherwise. 3. Agree with discontinuing lisinopril. 4. Agree with discontinuing lactated Ringers. 5. Low potassium diet. Recheck potassium later today. Consider Kayexalate if needed. 6. Avoid nephrotoxins and hypotension. Dose all medications appropriately for decreased GFR. [facility] PATIENT NAME: MAURI QUINONES Emily [address] MEDICAL REC #: [id number] [place] [address] ADMIT DATE: 07/17/18 DISCHARGE DATE: CONSULTATION REPORT ATTENDING PHY: Jensen Peguero DO 7. Intakes and outputs and daily lab. I thank you for giving me the opportunity to participate in the care of the patient. Jameson MD GERMAN Sullivan/[id number] [facility] File#: [id number] Verified/Reviewed by 07/22/18 Marlon DEL CID [facility] PATIENT NAME: MAURI QUINONES [address] MEDICAL REC #: [id number] [place] [address] ADMIT DATE: 07/17/18 DISCHARGE DATE: CONSULTATION REPORT ATTENDING PHY: Jensen Peguero DO PORTABLE CHEST Observed: 07/17/2018 Status: F Source: [facility] 6:00 AM [facility] [place] REPOSITORY PORTABLE CHEST Ordering Physician: Jameson Sullivan MD 07/20/2018 10:41 AM PORTABLE AP CHEST JULY 20, 2018 10:49 AM Clinical Statement: Congestive heart failure Comparison: None FINDINGS: The cardiomediastinal silhouette is enlarged. There is prominence of the pulmonary vascularity with no definite airspace consolidation. No pleural effusion or pneumothorax is demonstrated. IMPRESSION: Cardiomegaly and pulmonary venous congestion consistent with early or mild congestive heart failure. ---- Electronic Signature on File ---- Signed By: Jl Gonzalez MD [email or web address] Dictated: 07/20/2018 10:59 AM Signed: 07/20/2018 11:00 AM Reported By: JL GONZALEZ M.D. Signed By: JL GONZALEZ M.D. Observed: 07/17/2018 Status: UNK Source: [facility] 6:00 AM GRAY [employer] DATE OF CONSULTATION: 07/21/2018 REASON FOR CONSULTATION: Dialysis management. HISTORY OF PRESENT ILLNESS: This is an 82-year-old hypertensive, diabetic lady with end-stage renal disease maintains hemodialysis via left upper extremity AV graft which presented to the hospital on July 19 with chest pain and shortness of breath. Troponin was elevated to 14. Left heart catheterization on the day of admission noted severe triple vessel disease with decreased LV function and severe anterior wall hypokinesis; left ventricular ejection fraction was 35%. She underwent CABG x4 yesterday. Intraoperative course was notable for severe bleeding requiring multiple blood products including FFPs and packed red cells. She was started on pressors as well. Her chest tube drainage through the night was significant. She had some blood clots around the upper end of incision for which she was taken back to the OR this morning. Labs this morning noted a pH of 7.19 with a potassium of 5.9. Presently sedated, intubated on the vent. On 3 vasopressors including Levophed, epi and vasopressin along with . Blood pressure in the low 100s. Nephrology consultation has been requested for consideration of dialysis. PAST MEDICAL HISTORY: 1. ESRD- on maintenance hemodialysis. 2. Diabetes mellitus. 3. Dyslipidemia. 4. Hypothyroidism. 5. Left upper extremity graft. 6. Hysterectomy. 7. Recent CABG. ALLERGIES: CYCLOPHOSPHAMIDE. SOCIAL HISTORY: She lives with her daughter. Not an active smoker. FAMILY HISTORY: Noncontributory. REVIEW OF SYSTEMS: Unobtainable. MEDICATIONS: Reviewed. LABORATORY DATA: Labs from this morning, sodium 150, potassium 4.1, chloride 106, CO2 of 18, BUN 34, creatinine 3.6. Total white count 18,000, hemoglobin 8.8, hematocrit 26.5. Urinalysis: Positive leukocyte esterase, 70 white blood cells. Urine culture pending. Chest x-ray from yesterday notes bibasilar opacities compatible with atelectasis; small bilateral pleural effusions. PHYSICAL EXAMINATION: [facility] PATIENT NAME: MAURI QUINONES [address] [facility] [address] MEDICAL REC #: [id number] [place] [address] ADMIT DATE: 07/17/18 DISCHARGE DATE: CONSULTATION REPORT ATTENDING MARIE: Jensen Peguero DO Vital Signs: Temperature 97.8, heart rate 87, blood pressure 108/52. I's and O's positive 8 L. HEENT: Intubated on the ventilator. Lungs: Clear anteriorly. Heart: Regular. Extremities: Lower extremities: No edema. Left arm AV graft. Audible bruit. IMPRESSION: 1. Acute myocardial infarction- status post coronary artery bypass graft x3. 2. Cardiogenic shock. 3. Anemia- secondary to acute blood loss. 4. Anion-gap metabolic acidosis. 5. Hyperkalemia secondary to number 1 and metabolic acidosis. 6. Leukocytosis. 7. Respiratory failure- on the ventilator. RECOMMENDATIONS: 1. Will initiate CRRT for metabolic acidosis, hyperkalemia and fluid homeostasis. She is obviously hemodynamically too unstable for HD. Discussed with cardiac surgery. See CVVHD orders. Will monitor labs periodically and adjust prescription as needed. 2. Discontinue Flomax. 3. Discontinue Demerol given potential for adverse effects given her age and ESRD. 4. Packed red blood cell transfusion as needed. 5. Agree with sodium bicarbonate as you have ordered. 6. Double/quadruple concentrate all IV drips in order to minimize intake. 7. Switch drips to 0.45% saline and avoid isotonic saline given hypernatremia. Further recommendations based on patient's medical progress. Thank you for giving me the opportunity to participate in the care of the patient. Jameson MD GERMAN Sullvian/[id number] [facility] File#: [id number] Disclaimer - This document may contain phonetic, minor grammatical errors, or errors due to voice quality. Verified/Reviewed by [facility] PATIENT [facility]: [facility] MED[facility] REC #: [id number] [place] [address] ADMIT DATE: 07/17/18 DISCHARGE DATE: CONSULTATION REPORT ATTENDING TIFFANYY: Jensen Peguero DO 07/22/18 1539 BHAPR [facility] PATIENT NAME: MAURI QUINONES [facility] [address] MEDICAL REC #: [id number] [place] [address] ADMIT DATE: 07/17/18 DISCHARGE DATE: CONSULTATION REPORT ATTENDING PHY: Jensen Peguero DO PORTABLE CHEST Observed: 07/17/2018 Status: F Source: [facility] 6:00 AM [facility] REPOSITORY PORTABLE CHEST Ordering Physician: Jameson Sullivan MD 07/22/2018 7:00 AM PORTABLE UPRIGHT CHEST RADIOGRAPH AT 0510 HOURS Clinical Statement: CHF Comparison: 07/20/2018 FINDINGS: The patient has undergone prior median sternotomy. The heart is enlarged. Pulmonary vasculature is borderline congested. There is trace effusions. No focal consolidation. No pneumothorax. IMPRESSION: 1. Cardiomegaly with borderline congestion. 2. Trace bilateral effusions. ---- Electronic Signature on File ---- Signed By: Stephanie Guerrero MD [email or web address] Dictated: 07/22/2018 7:14 AM Signed: 07/22/2018 7:15 AM Reported By: STEPHANIE GUERRERO M.D. Signed By: STEPHANIE GUERRERO M.D. BASIC METABOLIC Collected: 07/15/2018 Status: F Source: [place] PROFILE (BMP) 10:33 AM [facility] REPOSITORY TYPE CODE TESTS RESULT OUT OF RANGE REFERENCE UNITS LAB L501.0100 74-106 mg/dL High GLU 190 Result Comment: Fasting Glucose result greater than or equal to 126 mg/dL suggests DIABETES MELLITUS per A.D.A. criteria. Please note revised GLUCOSE reference range effective 2017. LAB L501.1000 7-18 mg/dL High BUN 50 LAB L501.1100 0.70-1.30 mg/dL High CREAT,SERUM 1.63 Result Comment: The validity of the calculated GFR AND GFRAA in patients over 70 years has not been determined. Clinical correlation is essential. LAB L501.1110 >60 mL/min Low EST GFR 46 Result Comment: Non- GFR Calc LAB L501.1115 >60 mL/min Low EST GFR - AA 56 Result Comment: GFR Calc LAB L501.1300 10-20 RATIO High BUN/CRE 30.7 LAB L501.2200 8.5-10.1 mg/dL CA Normal 8.6 LAB L501.5300 136-145 mmol/L NA Normal 136 LAB L501.5600 3.5-5.1 mmol/L K Normal 4.3 LAB L501.5900 98-107 mmol/L CL Normal 98 LAB L501.6100 21.0-32.0 mmol/L Normal CO2 30.0 LAB L501.6200 5-15 Normal GAP 8 Performed By: #### L500.2500 #### [facility] [address] [place], [address] CARDIOLOGY VISIT Observed: 07/15/2018 Status: F Source: [place] REPORT 10:05 AM [facility] REPOSITORY [facility] [address] [place] [address] OFFICE VISIT Date of Service: 07/15/18 MR#: [id number] Acct: [id number] Name: MAURI QUINONES Rep #: [id number] : 1955 Provider: Florencia Brian Age/Sex: 62/M Location: [facility] Status: Signed HPI HPI Details: MAURI QUINONES, is a 62 M who presents to the office today for a cardiovascular outpatient follow-up for lower extremtiy edema. He has a history of coronary artery disease status post bypass surgery with a CARTY to LAD, SVG to the OM system and SVG to the PDA in March 2017 at [facility], postoperative ventricular tachycardia requiring resuscitation after bypass surgery, valvular heart disease, cardiomyopathy, congestive heart failure, pulmonary hypertension, and diabetes mellitus. Patient presented to [facility] emergency part for worsening edema in June 2018. This was associated with mild shortness of breath. His EKG shows sinus rhythm at a rate of 53 bpm with a chronic incomplete right bundle branch block and a BNP of 1441.7. He was given IV Lasix 60 mg and his oral Lasix was increased to 60 mg twice a day. His lisinopril was decreased to 20 mg due to increase in creatinine. His hydralazine was discontinued. Pt has continued to loose weight. He needs to have his BMp done today. His medications were adjusted d/t renal insuff over the last month. He is scheduled for right hip surgery sunday. He will be getting an iron infusion today. He has not have any chest pain/heaviness/tightness. He has not had any worsening SOB. He has not had any palpitations. He does not have any claudication. He feels his edema is improved. Pt increased his lisinopril back to 40 mg because he was worried about his Bp being elevated and this would not allow him to have surgery. Intake Vital Signs07/15/18 Height 5 ft 10 in 07/15/18 Weight: 176 lb 07/15/18 Body Mass Index (BMI) 25.2 07/15/18 Blood Pressure 132/70 H 07/15/18 Blood Pressure Location Lt brachial Intake Visit Reasons: Discuss IV therapy per [facility] Accompanied by: None Is patient in pain?: No Allergies pregabalin [From Lyrica] Allergy (Verified 07/15/18 09:22) Angioedema Medications Gabapentin [Neurontin] 300 mg PO BID 03/12/17 [History Confirmed 07/15/18] aspirin 81 mg tablet,delayed release 81 mg PO BID #180 tab 08/23/17 [Rx Confirmed 07/15/18] carvedilol 25 mg tablet 25 mg PO BID #180 tab 05/14/18 [Rx Confirmed 07/15/18] Doxazosin Mesylate [Cardura] 8 mg PO BID 06/03/18 [History Confirmed 07/15/18] Hydrocodone Bitart/Apap 5-325 [Acme 5MG-325MG] 1 tab PO Q4H PRN PRN 06/03/18 [History Confirmed 07/15/18] Insulin Detemir [Levemir] 17 unit SQ DINNER 06/03/18 [History Confirmed 07/15/18] Latanoprost 0.005% [Xalatan Opthalmic] 1 drp EACH EYE QHS 06/03/18 [History Confirmed 07/15/18] Multivits,Ca,Min/Iron/FA/Lycop [Centrum Men's Tablet] 2 ea PO DAILY 06/03/18 [History Confirmed 07/15/18] Pravastatin Sodium 80 mg PO DAILY 06/03/18 [History Confirmed 07/15/18] Tadalafil [Cialis] 20 mg PO PRN PRN 06/03/18 [History Confirmed 07/15/18] furosemide 40 mg tablet 60 mg PO BID #90 tab 07/08/18 [Rx Confirmed 07/15/18] furosemide 20 mg tablet 20 mg PO .COMPLEX #180 tab 07/15/18 [Rx Confirmed 07/15/18] lisinopril 20 mg tablet 40 mg PO DAILY #30 tab 07/15/18 [Rx Confirmed 07/15/18] metolazone 5 mg tablet 5 mg PO .COMPLEX 07/15/18 [History Confirmed 07/15/18] PFSH Medical History Leg swelling (Chronic) Leg edema (Chronic) Overweight (BMI 25.0-29.9) (Chronic) CAD (coronary artery disease) (Chronic) Ankylosing spondylitis (Chronic) Renal insufficiency (Chronic) HTN (hypertension) (Chronic) Ventricular tachyarrhythmia (Chronic) Atherosclerosis of [place] coronary artery of [place] heart without angina pectoris (Chronic) DM2 (diabetes mellitus, type 2) (Chronic) Gout (Chronic) Diabetes mellitus with neuropathy (Chronic) Abscess of right foot (Chronic) CHF (congestive heart failure) (Chronic) NSTEMI (non-ST elevated myocardial infarction) (Chronic) Valvular heart disease (Chronic) Cardiomyopathy (Chronic) Pulmonary HTN (Chronic) Acute systolic heart failure (Chronic) Biliary pleural effusion (Chronic) Bradycardia (Chronic) Surgical History Hx of CABG (Chronic 04/12/17) Hx of arthroscopy (Chronic) hx femur surgery (Chronic) History of open reduction and internal fixation (ORIF) procedure (Resolved) Family History Father CAD (coronary artery disease) Mother CAD (coronary artery disease) Social History Smoking Status: Never smoker alcohol intake: never substance use type: does not use caffeine: Yes Type: carbonated beverages Number of servings: 4 what type of physical activity do you participate in: none seatbelt use: always do you feel safe at home: Yes ROS Const Const: Negative for weakness, fatigue, fever(s) or headache(s) Eyes Eyes: Negative for blind spots, loss of peripheral vision or transient loss of vision ENT ENT: Negative for headache(s), dizziness, tinnitus or Nosebleed/epistaxis Cardio Chest Pain: No Palpitations: No Edema: None Muscle aches with walking: None Resp Respiratory: Negative for SOB with activity, SOB at rest, SOB orthopnea\SOB lying down or Cough GI GI: Negative nausea, vomiting, heartburn or vomiting blood/hematemesis : Negative for hematuria Musc Musc: Negative for muscle aches/ myalgia Neuro Neuro: Negative for weakness, headache(s), dizziness, near syncope, syncope, lightheadedness or orthostatic symptoms Edward Hematologic/Lymphatic: Negative for easy bleeding Endo Endo: Negative for fatigue Cardiology Exam Const Appearance: cooperative, healthy appearing, comfortable and no acute distress Nutritional Appearance: average body habitus and well nourished Orientation: alert, awake and oriented x3 Head Head: normal to inspection Ears: hearing grossly normal bilaterally Nose: external nose normal Face and Sinus: face symmetric Mouth: oral mucosae normal Eyes General: appearance normal, both eyes and all related structures Eyelids: eyelids normal EOM: EOM intact bilaterally Neck Neck: no JVD and normal visual inspection Carotids: normal carotid upstroke Chest Chest inspection: normal inspection of the chest and normal respiratory effort; negative cough Auscultation: Bilateral: Clear to Auscultation Cardio Rate: regular rate Rhythm: regular rhythm Heart sounds: S1 normal and S2 normal; negative rub, gallop or murmur GI GI: normal to inspection Neuro General: alert, awake, oriented x3 and CN's II-XI intact bilaterally Skin Skin: no rashes or lesions noted Extremities Pulses: Normal: Right Posterior Tibial Pulse, Left Posterior Tibial Pulse, Right Radial Pulse, Left Radial Pulse Lower Extremity Edema: +2: Bilateral Psych Psychological: normal affect Supplemental Info Echocardiogram from July 2017 showed estimated ejection fraction 45%, mildly dilated left ventricle, mild concentric LVH, mildly enlarged left atrium, mildly enlarged right atrium, mild diffuse mitral thickening, trivial mitral valve insufficiency, trivial tricuspid valve insufficiency, aortic sclerosis, no stenosis, trivial aortic valve insufficiency, calcified aortic root, RVSP of 41 mmHg, and diastolic dysfunction. Heart catheterization from February 2017 showed elevated LVEDP DP, moderately to severely elevated right heart pressures, ejection fraction of 30%, and [place] multivessel coronary artery disease. Left main coronary artery had 25% stenosis, mid LAD had 50-75% stenosis, ostial circumflex had 85% stenosis, OM1 had 95% stenosis, and right PDA was subtotally occluded. He was referred to tertiary care center for bypass surgery. Assessment AND Plan 1. Leg edema R60.0 Plan Patient's lower extremity edema has improved. He is continued to lose weight. He will continue with his current dose of diuretics of furosemide at 60 mg twice a day and metolazone 5 mg twice a week. He will obtain a BMP today to reassess his renal function. 2. Atherosclerosis of [place] coronary artery of [place] heart without angina pectoris I25.10 S/P surgery with CARTY to LAD, SVG to OM system, and SVG to PDA in March 2017 at [facility]; Plan Stable, from a cardiac standpoint patient does not have any symptoms of angina. We recommend that they continue with current aggressive medical management and risk factor modification. 3. Essential hypertension I10 Plan Patient has been concerned about his blood pressure being elevated. He did increase his lisinopril back to 40 mg daily. Will obtain a BMP. Based on this we will decide which dose of medications he should maintain for his blood pressure control. 4. Cardiomyopathy, unspecified type I42.9 Plan Patient does not have any symptoms of congestive heart failure. We will continue to monitor by history, exam and echocardiograms as deemed appropriate. He will continue with aggressive medical management. 5. Pure hypercholesterolemia E78.00; E78.0 Plan Patient will continue with current dose of moderate intensity statin. This is being managed by his primary care doctor. 6. Renal insufficiency N28.9 Plan We will obtain a BMP today to evaluate patient's kidney function. Orders Orders: Plan Detail Other Medications New: furosemide take 20 mg in addition to your 40 mg for a total of 60 mg Twice a day 180 tabs 3RF Changed: Additional Comments In regards to his upcoming surgery do not feel that any additional cardiac testing needs to be done. Recommend that he continue with his beta-rufus throughout the perioperative phase up to and including morning of surgery. Thank you for allowing us to participate in patient's plan of care, if you have any questions please do not hesitate to call. This note was generated using a voice recognition system and there may be incorrect words, spelling or punctuation errors that were not noted when reviewing the office note prior to saving. Follow Up 07/15/18 (Keep as is) Coding Level of Care Code Off vis,est,level 4 Diagnoses Leg edema R60.0 Atherosclerosis of [place] coronary artery of [place] heart without angina pectoris I25.10 Essential hypertension I10 Hypertension type: essential hypertension Cardiomyopathy, unspecified type I42.9 Cardiomyopathy type: unspecified Pure hypercholesterolemia E78.00; E78.0 Hyperlipidemia type: pure hypercholesterolemia Renal insufficiency N28.9 Coding Level of Care Code Off vis,est,level 4 Diagnoses Leg edema R60.0 Atherosclerosis of [place] coronary artery of [place] heart without angina pectoris I25.10 Essential hypertension I10 Hypertension type: essential hypertension Cardiomyopathy, unspecified type I42.9 Cardiomyopathy type: unspecified Pure hypercholesterolemia E78.00; E78.0 Hyperlipidemia type: pure hypercholesterolemia Renal insufficiency N28.9 07/15/18 1005 <Electronically signed by Florencia GAGNON> Date Florencia GAGNON Cosigner Signature: Date (if applicable) CC: Aditya Davis LOWER EXT ARTERIAL Observed: 07/14/2018 Status: F Source: [facility] 9:56 PM [facility] REPOSITORY [facility] Cardiovascular Services [address] [place] [id number] 07/14/18 2149 MR#: [id number] Acct: [id number] Name: MAURI QUINONES Rep #: [id number] : 1955 62 From: Vadim Ferrell MD Attending Dr: Vadim Ferrell MD Status: REG RCR Ordering Dr: Date: 07/14/18 Location: [facility] Sex: M C Admitted: Arterial Study - Arterial Study Arterial Study: This is a 62-year-old male who presents with a history of coronary artery disease, congestive heart failure, hypertension, diabetes, and renal insufficiency. Suspecting the presence of atherosclerotic peripheral arterial occlusive disease, the patient was brought to the noninvasive vascular laboratory at this time the purpose of bilateral noninvasive lower extremity arterial assessment. Doppler signal assessment was used to evaluate the pulses at ankle level bilaterally. On the right, the posterior tibial and dorsalis pedis pulses were triphasic. The left posterior tibial pulse was biphasic. The left dorsalis pedis pulse was triphasic. Segmental limb pressures were obtained bilaterally. Ankle pressures, as determined by posterior tibial and dorsalis pedis pulses, could not be determined on either side due to the noncompressibility of the vasculature. The right digital pressure was measured at 228 mmHg. The left digital digital pressure was measured at 171 mmHg. Pulse volume recordings were obtained bilaterally and segmentally. Waveform amplitudes appeared to be satisfactory at all levels bilaterally, including low thigh, calf, ankle, and digital levels. Resting ankle brachial indices could not be calculated on either side due to the noncompressibility of the vasculature. Digital brachial indices were calculated bilaterally. The right digital-brachial index was calculated to be 1.19. The left digital-brachial index was calculated to be 0.89. Impression: Based upon the findings of this resting noninvasive lower extremity arterial study, there is evidence of arterial calcification in the lower extremities bilaterally at ankle level, rendering the arterial tree noncompressible. However, triphasic waveforms are noted at ankle level bilaterally. Digital brachial indices were also bilaterally normal. These findings suggest relatively normal arterial perfusion in the lower extremities bilaterally. Clinical correlation is advised. 07/14/182155 <Electronically signed by Vadim Ferrell MD> Date Vadim Ferrell MD CC: Aditya Davis; Vadim Ferrell MD Date Dictated: 07/14/182148 Date Transcribed: 07/14/182148 Arc Welder Apprentice: GUNJAN Signed PROGRESS Observed: 07/11/2018 Status: COMPLETED Source: [place] 4:51 PM [facility] REPOSITORY O ID: [id number] Author: Aditya Eckert (Pastor) Ryan Service: (none) Author Type: Physician Delivery Driver/Customer Service Type: Progress Notes Filed: 07/14/2018 8:06 PM Note Text: Mauri Quinones is a 62 y/o male who presents for consultation from Dr. Jensen Peguero for medical preop clearance. My findings and recommendations will be communicated through this medical record. Upcoming surgery for: right total hip replacement. Surgery was cancelled after our last visit due to multiple uncontrolled medical problems. See highlighted areas for updated information. Otherwise all information remained unchanged from previous consult. Anesthesia review: Hx of previous anesthesia problems: No history of adverse event Family hx of anesthesia problems: No. Airway Assessment: MP 1; Neck ROM: Full ROM without neurologic symptoms; Airway Evaluation: No significant abnormalities Symptoms of Sleep Apnea: None Intubation History: No previous history of difficult intubation Dentition: Teeth intact ? Pertinent history and review: Current signs of infection: No. Chest pain: No. Cardiac history or testin03/14/17 discharged [facility]: acute systolic heart failure. ?2-D echocardiography performed on March 12 revealed moderate concentric left ventricular hypertrophy; normal left ventricular size; ejection fraction 35%; global hypokinesia; no valvular lesions; severe pulmonary hypertension with PA pressure 74 mmHg; dilated inferior vena cava. ?Of note, he had an echo performed in 2009 which revealed normal left the ventricular function and no pulmonary hypertension. ?Cardiac catheterization revealed severe multivessel coronary disease including an eccentric proximal to mid LAD lesion (estimated 60-70%); 85% ostial circumflex artery lesion; 95% mid OM1 lesion; a subtotally occluded posterior descending artery; coronary artery calcification. 04/10/17 3v CABG MACHELLE Casillas to OM, SVG to PDA, SVG to CX 01/28/[address] Nunez/ CHELSI Sadler. Swelling lower legs secondary to Norvasc. On diuretics for fluid retention. Negative venous Dopplar. CAD stable, asymptomatic. 06/30/18 presented to [facility] ED with C/o increased leg swelling and mild SOB. BP 188/93. Hgb 10.1, BUN 80/ creat 2.0. CXR: diffuse bilateral lower interstitial changes with cardiomegaly, right pleural effusion. Treated with lasix 60mg IV, increased oral lasix to 60mg BID, lowered lisinopril to 20mg daily and stopped hydralazine. Dx. Systolic CHF, HTN. 07/03/18 cardiology f/u with Ziggy Larkin [employer] 07/10/18 venous dopplar bilateral lower extremities negative. At some point he was admitted to the lymph edema clinic and is receiving therapy. Shortness of breath: No. Pulmonary testing to date: none Known sleep apnea: No. Hx of clotting issues: No. Current bleeding or bruising: No. Additional history of potential concern: 1. Uncontrolled HTN on Lisinopril 20mg daily, Carvedilol 25mg BID, doxazocin 4mg BID and metolazone 2.5mg BID. Compliant with meds. Denies lightheadedness, chest pain, cough, syncope Last 3 Encounter BP Readings: Date: BP: 07/11/2018 144/76 05/03/2018 138/72 04/17/2018 141/70 2. Uncontrolled diabetes mellitus improving. Current medications: Levemir insulin 18u daily. Compliant with medications. Most recent hgba1c 8.4% 07/04/18 [facility] 3. CRF: 05/27/18 BUN 73 Creat 1.48 GFR 51 06/29/18 BUN 86 Creat 2.00 GFR 36 07/04/18 BUN 73 creat 1.49 GFR 48 4. Anemia multifactorial: CRF, iron deficiency currently on iron supplementation and procrit injections per [facility] Component Latest Ref Rng AND Units 04/18/2017 02/20/2018 02/22/2018 03/04/2018 04/17/2018 Iron 41 - 186 ug/dL 26 (L) 62 68 77 TIBC 232 - 386 ug/dL 197 (L) 340 300 312 Transferrin Saturation 15 - 57 % 18 23 25 Retic % 0.4 - 2.0 % 1.6 1.4 Abs Retic 0.0180 - 0.1000 M/uL 0.064 0.053 Ferritin 30.3 - 565.7 ng/mL 363.80 458.5 283.0 142.0 Occult Blood, Stool Negative Negative 05/27/18 hgb 11.4 hct 36.0 Platelet 241 07/04/18 hgb 10.5 hct 32.5 Platelet 226 Iron 83 TIBC 364 Sat 23 Ferritin:183 ?5. Glaucoma left eye under treatment Dr. Omid Juan Ophthalmology PATIENT CAN PERFORM THE FOLLOWING: Do moderate work around the house such as vacuuming, sweeping floors, or carrying in groceries (3.50 METs) ? PATIENT IS A FUNCTIONAL CLASS: II-III Interval history: Developed severe bilateral leg swelling and SOB HISTORIES FAMILY HISTORY Problem Relation Age of Onset - Arthritis Mother - Coronary Artery Disease Mother - Diabetes Mother - Heart Mother - Hypertension Mother - Alcohol/Drug Father - Arthritis Father - Heart Father - Hypertension Father PAST MEDICAL HISTORY Diagnosis Date - Ankylosing spondylitis (HCC) - CAD (coronary artery disease) - Cellulitis - Constipation - Diabetes (HCC) - Gout - Hx of fracture multiple bones - NSTEMI (non-ST elevated myocardial infarction) ([facility] 03/12/2017 [facility] admit - Osteoarthritis PAST SURGICAL HISTORY Procedure Laterality Date - CORONARY ARTERY BYPASS GRAFT 04/12/2017 x 3 - HIP SURGERY HX Right pin - KNEE ARTHROSCOPY Left x2 - KNEE SURGERY HX Right TKR, right, arthoscopy x3 - PAST SURGICAL HISTORY OF 09/07/2017 08/15/17 fx radius in 2 places; plate and screws.Plate and screws 09/07/17 [facility] - TOE SURGERY HX Right Social History Marital status: Spouse name: Yun Years of education: Number of children: 2 Social History Main Topics Smoking status: Never Smoker Smokeless tobacco: Former User Types: Chew Quit date: 04/17/2017 Alcohol use: No Comment: seldom Drug use: No Sexual activity: Yes Partners with: Female Other Topics Concern Service No Blood Transfusions No Caffeine Concern No Comment:None Occupational Exposure No Hobby Hazards No Sleep Concern No Stress Concern No Weight Concern Yes Special Diet No Back Care No Exercise No Comment:No formal Bike Helmet No Seat Belt Yes Self-Exams No ACTIVE PROBLEM LIST Uncontrolled Type 2 Diabetes Mellitus Without Complication, With Long-Term Current Use of Insulin (Hcc) Bilateral Low Back Pain Without Sciatica Chronic Constipation 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 Do not use more than two weeks Disp: 45 g Rfl: 0 doxazosin (CARDURA) 4 mg tablet Take 4 mg by mouth twice daily. Disp: Rfl: 11 insulin detemir U-100 (LEVEMIR FLEXTOUCH U-100 INSULN) 100 unit/mL (3 mL) inpn injection Inject 20 Units subcutaneously daily at bedtime. (Patient taking differently: Inject 18 Units subcutaneously daily at bedtime. ) Disp: 18 mL Rfl: 3 furosemide (LASIX) 40 mg tablet Take 1 tablet by mouth once daily. Disp: Rfl: carvedilol (COREG) 25 mg tablet Take 25 mg by mouth twice daily with meals. Disp: Rfl: metOLAzone (ZAROXOLYN) 2.5 mg tablet Take 2.5 mg by mouth every other day. Disp: Rfl: gabapentin (NEURONTIN) 300 mg capsule Take 1 capsule by mouth twice daily. Disp: 180 capsule Rfl: 3 HYDROcodone-acetaminophen (NORCO) 5-325 mg per tablet Take 1 tablet by mouth every 8 hours as needed. Disp: Rfl: MULTIVITAMIN/IRON/FOLIC ACID (DAILY MULTI ORAL) Take 2 Each by mouth once daily. Disp: Rfl: lisinopril (ZESTRIL) 40 mg tablet Take 1 tablet by mouth once daily. (Patient taking differently: Take 20 mg by mouth once daily. ) Disp: 30 tablet Rfl: 1 Tadalafil (CIALIS) 20 mg tab(s) Take 1 tablet by mouth as needed. Disp: 30 tablet Rfl: 5 pravastatin (PRAVACHOL) 80 mg tablet Take 80 mg by mouth once daily. Disp: Rfl: latanoprost (XALATAN) 0.005 % ophthalmic solution Use 1 Drop in both eyes daily at bedtime. into affected eye(s). Disp: Rfl: 0 ferrous sulfate (IRON) 325 mg (65 mg iron) tablet Take 1 tablet by mouth twice daily. (Patient not taking: Reported on 07/11/2018 ) Disp: 60 tablet Rfl: 2 aspirin, enteric coated (ASPIR-81) 81 mg EC tablet Take 1 tablet by mouth once daily. (Patient not taking: Reported on 07/11/2018 ) Disp: 90 tablet Rfl: 3 No current facility-administered medications for this visit. BP CONTROLLED (<130/80) due on 11/06/1975 HEPATITIS C SCREENING due on 2001 DILATED RETINAL EXAM due on 12/08/2017 INFLUENZA(1) due on 04/27/2018 HBA1C due on 05/03/2018 ADDITIONAL LAB REVIEW: SEE ABOVE 06/29/18 CXR [facility]:The lungs are hyperexpanded. The patchy opacities at both bases on the prior study have decreased in density. There are still patchy opacities in the lower lobes. There is a right pleural effusion/pleural thickening. There is stable marked cardiomegaly with sternotomy wires. Normal mediastinum and sofi. Normal visualized pulmonary arteries. There is atherosclerotic calcification of the aortic arch with tortuosity. Normal visualized thoracic spine. Normal visualized ribs, clavicles, and shoulders. There is no demonstrated abnormality of the visualized soft tissue structures of the upper abdomen. RAD/Chest 1 View (Portable) IMPRESSION: Cardiomegaly with a mild diffuse bilateral lower lobe interstitial pattern. No acute pathology. Electronically Signed: Cade Denson MD 07/04/18 PREOP TESTING [facility]: INR 1.04, PTT 25.7; blood type O-negative; Lytes WNL; BNP 1926; MRSA PCR neg; SA PCR neg REVIEW OF SYSTEMS ` EXAM: BP 144/76 Pulse 64 Temp 36.7 ?C (98 ?F) (Tympanic) Resp 16 Ht 174 cm (5' 8.5) Wt 79.4 kg (175 lb) BMI 26.22 kg/m? Pleasant adult man in no acute distress. Alert and oriented all spheres. Normal affect and cognition. Speech normal. No deficits to learning or comprehension. Skin warm, dry, pink to lips and nailbeds. Normal turgor. Respirations regular and unlabored. HEENT WNL. TM's clear. Nose and oropharynx free from injection or lesion. No cervical lymph nodes. Thyroid non-tender, no masses Chest CTA except dry crackles posterior right base. HRRR without murmur or gallop. JVD 1 cm HOB 30 degrees. No carotid bruit. Carotid pulses 2/4+ Abdomen: active bowel sounds throughout, soft, nontender, no masses or organomegaly. No CVAT. Extrem: no clubbing, cyanosis. 1/4+ pitting edema distal lower third bilateral legs. Extremities are warm and pink with prompt capillary refill. 2/4+ DPP. ASSESSMENT/PLAN: 1. Preoperative clearance - ICD9: V72.84, ICD10: Z01.818 (primary diagnosis) Thank you Dr. Peguero for your kind referral and opportunity to participate in your care of Mr. Quinones. This patient has moderately elevated risk from non-cardiac surgery involving anemic, cardiac, renal and eye conditions. His anemia is currently not optimally controlled and plans are identified by the patient to receive iron infusions prior to surgery. I would like his hgb above 11.0. The elevated BNP is invalid based on his renal failure. He will need careful monitoring for CHF particularly with fluid overload or low blood pressures due to his recent systolic heart failure and mild right pleural effusion. His elevated blood pressure is not likely to cause issues and it would be better if it were mildly high. His diabetes is under sufficient control to not be a problem. Please contact me if you have any additional concerns. 2. Need for vaccination - ICD9: V05.9, ICD10: Z23 - INFLUENZA VACCINE QUADRIVALENT AGE 3 YRS PLUS + IM 3. Uncontrolled type 2 diabetes mellitus without complication, with long-term current use of insulin ([facility]) - ICD9: 250.02, V58.67, ICD10: E11.65, Z79.4 uncontrolled - Continue current medications - follow after surgery 4. Acute on chronic diastolic congestive heart failure (HCC) - ICD9: 428.33, 428.0, ICD10: I50.33 Issues were likely related to change in his diuretic medications and acute renal injury. He has no current cardiac or failure symptoms. 5. CRF (chronic renal failure), stage 3 (moderate) (HCC) - ICD9: 585.3, ICD10: N18.3 Stable 6. Anemia of chronic renal failure, stage 3 (moderate) (HCC) - ICD9: 285.21, 585.3, ICD10: N18.3, D63.1 Stable 7. Recurrent right pleural effusion - ICD9: 511.9, ICD10: J90 Will need to be followed after surgery. Interstitial pattern on CXR may bear further evaluation if persists in absence of heart failure. 70 minutes gathering and collating records and information. Aditya Davis PA-C PROGRESS Observed: 07/11/2018 Status: COMPLETED Source: [place] 4:51 PM [facility] REPOSITORY HNO ID: [id number] Author: Aditya Davis Service: (none) Author Type: Physician Delivery Driver/Customer Service Type: Progress Notes Filed: 07/14/2018 8:06 PM Note Text: . PROGRESS Observed: 07/11/2018 Status: COMPLETED Source: [place] 10:31 AM [facility] REPOSITORY HNO ID: [id number] Author: Aditya Davis Service: (none) Author Type: Physician Delivery Driver/Customer Service Type: Progress Notes Filed: 07/14/2018 8:06 PM Note Text: 62 year old male here for INACTIVATED INFLUENZA VACCINE. 9503-2137 Season Patient is identified by name and date of : Yes [] CONTRAINDICATIONS color enhanced section Age less than 6 months? No Allergy to eggs, chicken, chicken feathers, or chicken dander? No Allergy to thimerosal (a preservative) or formaldehyde, gelatin? No History of severe reaction to any vaccine component or a previous dose of influenza vaccination? No History of Guillain-[place] Syndrome within 6 weeks after a previous influenza vaccine? No Patient is not moderately or severely ill? No Current temperature greater or equal to 100.4F? No History of Bone Marrow Transplant prior 6 months or solid organ transplant in the past 3 months ? No History of fainting after a prior injection or medical procedure? No- ? If patient has fainted in the past, the CDC recommends sitting or lying down for 15 minutes after the vaccination. [] VERIFICATION color enhanced section Was the answer Yes for any of the above contraindications? No contraindications present. Acceptable to proceed with vaccine. Patient/guardian agrees the above answers are true to the best of their knowledge? Yes Flu vaccine information sheet given? Yes See immunization activity in [facility] for details of immunizations adminstered today. Patient age: [age] year old For The 2270-0464 Flu Season 6-35 months old: Fluzone 0.25 ml - IM (Preservative Free) 3 years of age: Fluzone 0.5 ml - IM (Preservative Free) 3 years and older: Fluzone 0.5 ml- IM-(with Preservatives) 65+ years old: 2-49 years old Fluzone High-Dose 0.5 ml - IM (Preservative Free) FLUMIST- intranasal REMEMBER: If patient is less than 9 years of age and this is the first vaccine of Influenza to be received in any flu season, they should receive a second dose in one months time. CNOV Observed: 07/11/2018 Status: COMPLETED Source: [place] 9:20 AM [facility] REPOSITORY [facility] MAURI QUINONES ([id number]) 1955 M Date Time Provider Department 07/11/18 9:20 AM Aditya DAVIS) [place] During your visit today, we recorded the following information about you: Temperature Pulse Respiration Blood pressure 98 degrees 64/minute 16/minute 144/76 Weight Height 79.4 kg 1.74 m Aditya Davis PA-C 07/14/2018 8:06 PM Signed 62 year old male here for INACTIVATED INFLUENZA VACCINE. 2601-5799 Season Patient is identified by name and date of : Yes [] CONTRAINDICATIONS color enhanced section Age less than 6 months? No Allergy to eggs, chicken, chicken feathers, or chicken dander? No Allergy to thimerosal (a preservative) or formaldehyde, gelatin? No History of severe reaction to any vaccine component or a previous dose of influenza vaccination? No History of Guillain-[place] Syndrome within 6 weeks after a previous influenza vaccine? No Patient is not moderately or severely ill? No Current temperature greater or equal to 100.4F? No History of Bone Marrow Transplant prior 6 months or solid organ transplant in the past 3 months ? No History of fainting after a prior injection or medical procedure? No- ? If patient has fainted in the past, the CDC recommends sitting or lying down for 15 minutes after the vaccination. [] VERIFICATION color enhanced section Was the answer Yes for any of the above contraindications? No contraindications present. Acceptable to proceed with vaccine. Patient/guardian agrees the above answers are true to the best of their knowledge? Yes Flu vaccine information sheet given? Yes See immunization activity in [facility] for details of immunizations adminstered today. Patient age: [age] year old For The 1198-2485 Flu Season 6-35 months old: Fluzone 0.25 ml - IM (Preservative Free) 3 years of age: Fluzone 0.5 ml - IM (Preservative Free) 3 years and older: Fluzone 0.5 ml- IM-(with Preservatives) 65+ years old: 2-49 years old Fluzone High-Dose 0.5 ml - IM (Preservative Free) FLUMIST- intranasal REMEMBER: If patient is less than 9 years of age and this is the first vaccine of Influenza to be received in any flu season, they should receive a second dose in one months time. Aditya Davis PA-C 07/14/2018 8:06 PM Signed . Aditya Davis PA-C 07/14/2018 8:06 PM Signed Mauri Del Rosariontyre is a 62 y/o male who presents for consultation from Dr. Jensen Peguero for medical preop clearance. My findings and recommendations will be communicated through this medical record. Upcoming surgery for: right total hip replacement. Surgery was cancelled after our last visit due to multiple uncontrolled medical problems. See highlighted areas for updated information. Otherwise all information remained unchanged from previous consult. Anesthesia review: Hx of previous anesthesia problems: No history of adverse event Family hx of anesthesia problems: No. Airway Assessment: MP 1; Neck ROM: Full ROM without neurologic symptoms; Airway Evaluation: No significant abnormalities Symptoms of Sleep Apnea: None Intubation History: No previous history of difficult intubation Dentition: Teeth intact ? Pertinent history and review: Current signs of infection: No. Chest pain: No. Cardiac history or testin03/14/17 discharged [facility]: acute systolic heart failure. ?2-D echocardiography performed on March 12 revealed moderate concentric left ventricular hypertrophy; normal left ventricular size; ejection fraction 35%; global hypokinesia; no valvular lesions; severe pulmonary hypertension with PA pressure 74 mmHg; dilated inferior vena cava. ?Of note, he had an echo performed in 2009 which revealed normal left the ventricular function and no pulmonary hypertension. ?Cardiac catheterization revealed severe multivessel coronary disease including an eccentric proximal to mid LAD lesion (estimated 60-70%); 85% ostial circumflex artery lesion; 95% mid OM1 lesion; a subtotally occluded posterior descending artery; coronary artery calcification. 04/10/17 3v CABG MACHELLE Casillas to OM, SVG to PDA, SVG to CX 01/28/[address] Nunez/ CHELSI Sadler. Swelling lower legs secondary to Norvasc. On diuretics for fluid retention. Negative venous Dopplar. CAD stable, asymptomatic. 06/30/18 presented to [facility] ED with C/o increased leg swelling and mild SOB. BP 188/93. Hgb 10.1, BUN 80/ creat 2.0. CXR: diffuse bilateral lower interstitial changes with cardiomegaly, right pleural effusion. Treated with lasix 60mg IV, increased oral lasix to 60mg BID, lowered lisinopril to 20mg daily and stopped hydralazine. Dx. Systolic CHF, HTN. 07/03/18 cardiology f/u with Ziggy Larkin [employer] 07/10/18 venous dopplar bilateral lower extremities negative. At some point he was admitted to the lymph edema clinic and is receiving therapy. Shortness of breath: No. Pulmonary testing to date: none Known sleep apnea: No. Hx of clotting issues: No. Current bleeding or bruising: No. Additional history of potential concern: 1. Uncontrolled HTN on Lisinopril 20mg daily, Carvedilol 25mg BID, doxazocin 4mg BID and metolazone 2.5mg BID. Compliant with meds. Denies lightheadedness, chest pain, cough, syncope Last 3 Encounter BP Readings: Date: BP: 07/11/2018 144/76 05/03/2018 138/72 04/17/2018 141/70 2. Uncontrolled diabetes mellitus improving. Current medications: Levemir insulin 18u daily. Compliant with medications. Most recent hgba1c 8.4% 07/04/18 [facility] 3. CRF: 05/27/18 BUN 73 Creat 1.48 GFR 51 06/29/18 BUN 86 Creat 2.00 GFR 36 07/04/18 BUN 73 creat 1.49 GFR 48 4. Anemia multifactorial: CRF, iron deficiency currently on iron supplementation and procrit injections per [facility] Component Latest Ref Rng AND Units 04/18/2017 02/20/2018 02/22/2018 03/04/201804/17/2018 Iron 41 - 186 ug/dL 26 (L) 62 68 77 TIBC 232 - 386 ug/dL 197 (L) 340 300 312 Transferrin Saturation 15 - 57 % 18 23 25 Retic % 0.4 - 2.0 % 1.6 1.4 Abs Retic 0.0180 - 0.1000 M/uL 0.064 0.053 Ferritin 30.3 - 565.7 ng/mL 363.80 458.5 283.0 142.0 Occult Blood, Stool Negative Negative 05/27/18 hgb 11.4 hct 36.0 Platelet 241 07/04/18 hgb 10.5 hct 32.5 Platelet 226 Iron 83 TIBC 364 Sat 23 Ferritin:183 ?5. Glaucoma left eye under treatment Dr. Omid Juan Ophthalmology PATIENT CAN PERFORM THE FOLLOWING: Do moderate work around the house such as vacuuming, sweeping floors, or carrying in groceries (3.50 METs) ? PATIENT IS A FUNCTIONAL CLASS: II-III Interval history: Developed severe bilateral leg swelling and SOB HISTORIES FAMILY HISTORY Problem Relation Age of Onset - Arthritis Mother - Coronary Artery Disease Mother - Diabetes Mother - Heart Mother - Hypertension Mother - Alcohol/Drug Father - Arthritis Father - Heart Father - Hypertension Father PAST MEDICAL HISTORY Diagnosis Date - Ankylosing spondylitis ([facility] - CAD (coronary artery disease) - Cellulitis - Constipation - Diabetes ([facility]) - Gout - Hx of fracture multiple bones - NSTEMI (non-ST elevated myocardial infarction) ([facility]) 03/12/2017 [facility] admit - Osteoarthritis PAST SURGICAL HISTORY Procedure Laterality Date - CORONARY ARTERY BYPASS GRAFT 04/12/2017 x 3 - HIP SURGERY HX Right pin - KNEE ARTHROSCOPY Left x2 - KNEE SURGERY HX Right TKR, right, arthoscopy x3 - PAST SURGICAL HISTORY OF 09/07/2017 08/15/17 fx radius in 2 places; plate and screws.Plate and screws 09/07/17 [facility] - TOE SURGERY HX Right Social History Marital status: Spouse name: Yun Years of education: Number of children: 2 Social History Main Topics Smoking status: Never Smoker Smokeless tobacco: Former User Types: Chew Quit date: 04/17/2017 Alcohol use: No Comment: seldom Drug use: No Sexual activity: Yes Partners with: Female Other Topics Concern Service No Blood Transfusions No Caffeine Concern No Comment:None Occupational Exposure No Hobby Hazards No Sleep Concern No Stress Concern No Weight Concern Yes Special Diet No Back Care No Exercise No Comment:No formal Bike Helmet No Seat Belt Yes Self-Exams No ACTIVE PROBLEM LIST Uncontrolled Type 2 Diabetes Mellitus Without Complication, With Long-Term Current Use of Insulin (Hcc) Bilateral Low Back Pain Without Sciatica Chronic Constipation 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 Do not use more than two weeks Disp: 45 g Rfl: 0 doxazosin (CARDURA) 4 mg tablet Take 4 mg by mouth twice daily. Disp: Rfl: 11 insulin detemir U-100 (LEVEMIR FLEXTOUCH U-100 INSULN) 100 unit/mL (3 mL) inpn injection Inject 20 Units subcutaneously daily at bedtime. (Patient taking differently: Inject 18 Units subcutaneously daily at bedtime. ) Disp: 18 mL Rfl: 3 furosemide (LASIX) 40 mg tablet Take 1 tablet by mouth once daily. Disp: Rfl: carvedilol (COREG) 25 mg tablet Take 25 mg by mouth twice daily with meals. Disp: Rfl: metOLAzone (ZAROXOLYN) 2.5 mg tablet Take 2.5 mg by mouth every other day. Disp: Rfl: gabapentin (NEURONTIN) 300 mg capsule Take 1 capsule by mouth twice daily. Disp: 180 capsule Rfl: 3 HYDROcodone-acetaminophen (NORCO) 5-325 mg per tablet Take 1 tablet by mouth every 8 hours as needed. Disp: Rfl: MULTIVITAMIN/IRON/FOLIC ACID (DAILY MULTI ORAL) Take 2 Each by mouth once daily. Disp: Rfl: lisinopril (ZESTRIL) 40 mg tablet Take 1 tablet by mouth once daily. (Patient taking differently: Take 20 mg by mouth once daily. ) Disp: 30 tablet Rfl: 1 Tadalafil (CIALIS) 20 mg tab(s) Take 1 tablet by mouth as needed. Disp: 30 tablet Rfl: 5 pravastatin (PRAVACHOL) 80 mg tablet Take 80 mg by mouth once daily. Disp: Rfl: latanoprost (XALATAN) 0.005 % ophthalmic solution Use 1 Drop in both eyes daily at bedtime. into affected eye(s). Disp: Rfl: 0 ferrous sulfate (IRON) 325 mg (65 mg iron) tablet Take 1 tablet by mouth twice daily. (Patient not taking: Reported on 07/11/2018 ) Disp: 60 tablet Rfl: 2 aspirin, enteric coated (ASPIR-81) 81 mg EC tablet Take 1 tablet by mouth once daily. (Patient not taking: Reported on 07/11/2018 ) Disp: 90 tablet Rfl: 3 No current facility-administered medications for this visit. BP CONTROLLED (<130/80) due on 11/06/1975 HEPATITIS C SCREENING due on 2001 DILATED RETINAL EXAM due on 12/08/2017 INFLUENZA(1) due on 04/27/2018 HBA1C due on 05/03/2018 ADDITIONAL LAB REVIEW: SEE ABOVE 06/29/18 CXR [facility]:The lungs are hyperexpanded. The patchy opacities at both bases on the prior study have decreased in density. There are still patchy opacities in the lower lobes. There is a right pleural effusion/pleural thickening. There is stable marked cardiomegaly with sternotomy wires. Normal mediastinum and sofi. Normal visualized pulmonary arteries. There is atherosclerotic calcification of the aortic arch with tortuosity. Normal visualized thoracic spine. Normal visualized ribs, clavicles, and shoulders. There is no demonstrated abnormality of the visualized soft tissue structures of the upper abdomen. RAD/Chest 1 View (Portable) IMPRESSION: Cardiomegaly with a mild diffuse bilateral lower lobe interstitial pattern. No acute pathology. Electronically Signed: Cade Denson MD 07/04/18 PREOP TESTING [facility]: INR 1.04, PTT 25.7; blood type O-negative; Lytes WNL; BNP 1927; MRSA PCR neg; SA PCR neg REVIEW OF SYSTEMS ` EXAM: BP 144/76 Pulse 64 Temp 36.7 ?C (98 ?F) (Tympanic) Resp 16 Ht 174 cm (5' 8.5) Wt 79.4 kg (175 lb) BMI 26.22 kg/m? Pleasant adult man in no acute distress. Alert and oriented all spheres. Normal affect and cognition. Speech normal. No deficits to learning or comprehension. Skin warm, dry, pink to lips and nailbeds. Normal turgor. Respirations regular and unlabored. HEENT WNL. TM's clear. Nose and oropharynx free from injection or lesion. No cervical lymph nodes. Thyroid non-tender, no masses Chest CTA except dry crackles posterior right base. HRRR without murmur or gallop. JVD 1 cm HOB 30 degrees. No carotid bruit. Carotid pulses 2/4+ Abdomen: active bowel sounds throughout, soft, nontender, no masses or organomegaly. No CVAT. Extrem: no clubbing, cyanosis. 1/4+ pitting edema distal lower third bilateral legs. Extremities are warm and pink with prompt capillary refill. 2/4+ DPP. ASSESSMENT/PLAN: 1. Preoperative clearance - ICD9: V72.84, ICD10: Z01.818 (primary diagnosis) Thank you Dr. Peguero for your kind referral and opportunity to participate in your care of Mr. Quinones. This patient has moderately elevated risk from non-cardiac surgery involving anemic, cardiac, renal and eye conditions. His anemia is currently not optimally controlled and plans are identified by the patient to receive iron infusions prior to surgery. I would like his hgb above 11.0. The elevated BNP is invalid based on his renal failure. He will need careful monitoring for CHF particularly with fluid overload or low blood pressures due to his recent systolic heart failure and mild right pleural effusion. His elevated blood pressure is not likely to cause issues and it would be better if it were mildly high. His diabetes is under sufficient control to not be a problem. Please contact me if you have any additional concerns. 2. Need for vaccination - ICD9: V05.9, ICD10: Z23 - INFLUENZA VACCINE QUADRIVALENT AGE 3 YRS PLUS + IM 3. Uncontrolled type 2 diabetes mellitus without complication, with long-term current use of insulin (HCC) - ICD9: 250.02, V58.67, ICD10: E11.65, Z79.4 uncontrolled - Continue current medications - follow after surgery 4. Acute on chronic diastolic congestive heart failure (HCC) - ICD9: 428.33, 428.0, ICD10: I50.33 Issues were likely related to change in his diuretic medications and acute renal injury. He has no current cardiac or failure symptoms. 5. CRF (chronic renal failure), stage 3 (moderate) (HCC) - ICD9: 585.3, ICD10: N18.3 Stable 6. Anemia of chronic renal failure, stage 3 (moderate) (HCC) - ICD9: 285.21, 585.3, ICD10: N18.3, D63.1 Stable 7. Recurrent right pleural effusion - ICD9: 511.9, ICD10: J90 Will need to be followed after surgery. Interstitial pattern on CXR may bear further evaluation if persists in absence of heart failure. 70 minutes gathering and collating records and information. M Ghassan Davis PA-C Referring Provider: SELF [200] Allergies As of Date: 07/11/2018 Noted Allergy Reaction LYRICA (PREGABALIN) 03/23/2017 7 - Swelling Date Reviewed: 07/11/2018 Reviewed by: Caryn Simpson LPN - Fully Assessed Reason for Visit: surgical clearance [Other] Cmt: right hip by Dr. Peguero Imm/Inj [58] Cmt: Flu Vaccine Reason For Visit History Recorded Primary Visit Diagnosis:Preoperative clearance [Z01.818] Other Visit Diagnoses:Need for vaccination [Z23] Uncontrolled type 2 diabetes mellitus without complication, with long-term current use of insulin (HCC) [E11.65, Z79.4] Acute on chronic diastolic congestive heart failure (HCC) [I50.33] CRF (chronic renal failure), stage 3 (moderate) (HCC) [N18.3] Anemia of chronic renal failure, stage 3 (moderate) (HCC) [N18.3, D63.1] Recurrent right pleural effusion [J90] Order(s):INFLUENZA VACCINE QUADRIVALENT AGE 3 YRS PLUS + IM [[id number]] Order #: [id number] lisinopril (ZESTRIL) 40 mg tabletTake 0.5 tablets by mouth once daily.Disp: Rfl: Prescriptions as of 07/11/2018 Sig: LISINOPRIL 40 MG TABLET Take 0.5 tablets by mouth onc* MOMETASONE 0.1 % TOPICAL CREAM Apply 1 application to affect* DOXAZOSIN 4 MG TABLET Take 4 mg by mouth twice jagdeep* INSULIN DETEMIR (U-100) 100 U* Inject 20 Units subcutaneousl* Patient taking differently: Inject 18 Units subcutaneousl* FUROSEMIDE 40 MG TABLET Take 1 tablet by mouth once d* CARVEDILOL 25 MG TABLET Take 25 mg by mouth twice rafita* METOLAZONE 2.5 MG TABLET Take 2.5 mg by mouth every ot* GABAPENTIN 300 MG CAPSULE Take 1 capsule by mouth twice* HYDROCODONE 5 MG-ACETAMINOPHE* Take 1 tablet by mouth every * DAILY MULTI ORAL Take 2 Each by mouth once rafita* TADALAFIL 20 MG TABLET Take 1 tablet by mouth as nee* PRAVASTATIN 80 MG TABLET Take 80 mg by mouth once jagdeep* LATANOPROST 0.005 % EYE DROPS Use 1 Drop in both eyes daily* FERROUS SULFATE 325 MG (65 MG* Take 1 tablet by mouth twice * Patient not taking: Reported on 07/11/2018 ASPIRIN 81 MG TABLET,DELAYED * Take 1 tablet by mouth once d* Patient not taking: Reported on 07/11/2018 Problem List As Of Date 07/11/2018 Noted Resolved Uncontrolled type 2 diabetes mellitus without c*INVALID FOR* More... 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 Hypertension, essential [I10] INVALID FOR* Lower leg edema [R60.0] INVALID FOR* More... Chronic left hip pain [M25.552, G89.29] INVALID FOR* Anemia of chronic renal failure, stage 3 (moder*INVALID FOR* Prescriptions ordered this encounter Disp Refills Start End LISINOPRIL 40 MG TABLET 07/14/2018 Class: Med Update Route: ORAL Sig: Take 0.5 tablets by mouth once daily. Medications Discontinued During This Encounter hydrALAZINE (APRESOLINE) 25 mg tablet 07/11/2018 Class: Historical Med Route: ORAL Sig: Take 25 mg by mouth three times daily. Disc: Reason for discontinue is not on file. lisinopril (ZESTRIL) 40 mg tablet 30 t* 1 09/24/2017 07/14/2018 Route: ORAL Sig: Take 1 tablet by mouth once daily. Patient taking differently: Take 20 mg by mouth once daily. Disc: Adjust Sig - Block E-Cancel Encounter Status:Closed by Aditya DAVIS PA-C on 07/14/18 VENOUS DUPLEX LOWER Observed: 07/10/2018 Status: F Source: [facility] 8:11 AM [facility] REPOSITORY [facility] Cardiovascular Services [address] [place] [address] Venous Duplex US - Arnaud Extrem 07/09/18 0858 MR#: [id number] Acct: [id number] Name: MAURI QUINONES Rep #: [id number] : 1955 62 From: Vadim Ferrell MD Attending Dr: Vadim Ferrell MD Status: REG RCR Ordering Dr: Vadim Ferrell MD Date: 07/09/18 Location: CVS Sex: M C Admitted: Reason For Study: LEG SWELLING RIGHT LEFT CFV is compressible, spontaneous, phasic, CFV is compressible, spontaneous, phasic, competent and demonstrates normal competent, and demonstrates normal augmentation. augmentation. FV is compressible, spontaneous, phasic, FV is compressible, spontaneous, phasic, competent and demonstrates normal competent and demonstrates normal augmentation. augmentation. POP V is compressible, spontaneous, phasic, POP V is compressible, spontaneous, phasic, competent and demonstrates normal competent and demonstrates normal augmentation. augmentation. T/P Trunk is compressible. T/P Trunk is compressible. PTV is compressible. PTV is compressible. RT PerV is compressible. LT PerV is compressible. SFJ is competent SFJ is INCOMPETENT greater than .5 sec GSV is competent GSV is INCOMPETENT with reflux greater SSV is competent. than .5 sec and diameter of .29 x .26 cm Procedure GSV is not visualized for segment in thigh Exam performed in department. from prox to mid thigh. A preliminary report was called and/or faxed SSV is competent. to [facility]. <> Interpretation Summary Deep veins of the lower extremities are bilaterally patent and compressible segmentally. There is no evidence of deep vein thrombosis on either side. Valvular competence appears intact within the proximal deep venous systems bilaterally. The greater saphenous veins appear bilaterally patent and compressible segmentally. The right sapheno-femoral junction is competent . The left sapheno-femoral junction is incompetent . The right greater saphenous vein appears segmentally competent. The left greater saphenous vein appears segmentally incompetent. A segment of the left greater saphenous vein from the proximal left thigh to the mid-thigh was not visualized. Small saphenous veins are patent and competent bilaterally. 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 CBC W/DIFF Collected: 07/04/2018 Status: F Source: [facility] 8:40 AM [facility] [place] REPOSITORY Order Comment: Kount[employer]: TYPE CODE TESTS RESULT OUT OF RANGE REFERENCE UNITS LAB L200.26613 4.5-11.0 K/CU MM WBC Normal 6.5 LAB L200.57908 4.50-6.00 M/CU MM Low RBC 3.63 LAB L200.64280 13.5-17.5 G/DL Low HGB 10.5 LAB L200.45474 41.0-53.0 % Low HCT 32.5 LAB L200.79504 80.0-99.0 fl MCV Normal 89.5 LAB L200.18904 32.0-36.0 GM/DL MCHC Normal 32.3 LAB L200.67949 11-14.5 RDW Normal 14.1 LAB L200.47663 9.4-12.4 MPV Normal 9.7 LAB L200.84988 150-450 K/CU MM PLT Normal 226 LAB L200.72925 45-75 % NEUTROPHILS Normal % 74.4 LAB L200.52264 Less than 2 % IMMATURE Normal GRAN % 0.2 LAB L200.98222 20-40 % Low LYMPH % 11.4 LAB L200.21311 2-10 % High MONOCYTE % 10.9 LAB L200.50442 0-5 % EOSINOPHIL Normal % 2.6 LAB L200.17274 0-2 % BASOPHIL % Normal 0.5 LAB L200.27244 2.0-8.3 K/CU MM NEUTROPHIL Normal ABS 4.90 LAB L200.16537 Less than 2 K/CU MM IMMATR GRAN Normal ABS 0.00 LAB L200.99124 0.9-4.4 K/CU MM Low LYMPH ABS 0.70 LAB L200.60524 0.1-1.1 K/CU MM MONO ABS Normal 0.70 LAB L200.13780 0-0.5 K/CU MM EOS ABS Normal 0.20 LAB L200.63571 0-0.2 K/CU MM BASO ABS Normal 0.00 LAB L200.44131 Less than 1 % NRBC Normal 0.0 Performed By: #### L200.03548, L550.62652 #### [facility] [address] [place] [address] HGB A1C GLYCOHB Collected: 07/04/2018 Status: F Source: [facility] 8:40 AM [facility] REPOSITORY Order Comment: K[employer]: M TYPE CODE TESTS RESULT OUT OF REFERENCE UNITS RANGE LAB L550.61789 4.3-6.0 High HGB A1C 8.4 GLYCOHB Performed By: #### L200.98904, L550.52944 #### [facility] [address] [place] [address] PT Collected: 07/04/2018 Status: F Source: [facility] 8:40 AM [facility] REPOSITORY Order Comment: K[employer]ze: M TYPE CODE TESTS RESULT OUT OF RANGE REFERENCE UNITS LAB L300.36154 0.9-1.1 Normal INR 1.04 Result Comment: Recommended PT INR therapeutic range for custodial and prophylactic therapy is 2.0 - 3.0. For heart valve and shunt patients the range is 2.5 - 3.5. LAB L300.26771 9.5-12.0 SECONDS Normal PTS 11.1 Performed By: #### L300.34275, L300.05490 #### [facility] [address] [place] [address] PTT Collected: 07/04/2018 Status: F Source: [facility] 8:40 AM [facility] REPOSITORY Order Comment: [employer]: M TYPE CODE TESTS RESULT OUT OF RANGE REFERENCE UNITS LAB L300.13562 22.0-31.5 SECONDS Normal PTT 25.7 Result Comment: Therapeutic Heparin Reference Range: High Dose: 46-75 seconds (DVT/PE) Low Dose: 39-60 seconds (Acute Coronary Syndrome) For low molecular weight heparin or danaparoid, monitoring is often NOT necessary, but the heparin assay, Xa inhibition assay (send-out) may be used in certain circumstances, as the PTT is generally insensitive to the effect of these agents. Direct thrombin inhibitors are becoming more widely utilized and these drugs are often monitored using the PTT. Performed By: #### L300.87740, L300.02723 #### [facility] [address] [place] [address] BMP Collected: 07/04/2018 Status: F Source: [facility] 8:40 AM [facility] REPOSITORY Order Comment: [employer]: M TYPE CODE TESTS RESULT OUT OF RANGE REFERENCE UNITS LAB L500.92369 136-145 MMOL/L Normal NA 139 LAB L500.16921 3.5-5.1 MMOL/L Normal K 4.7 LAB L500.20794 98-107 MMOL/L Normal CL 100 LAB L500.50196 21-32 MMOL/L Normal CO2 32 LAB L500.01025 5-16 MMOL/L Normal AGAP 7 LAB L500.95961 70-100 MG/DL Normal GLU 90 Result Comment: 70-100- Normal Fasting; 100-125 Impaired Fasting; greater than 126 on more than one result- Diabetes. ADA guidelines. Results may be falsely elevated after the administration of Sulfapyridine. Results may be falsely depressed after the administration of Sulfasalazine. LAB L500.84816 7-26 MG/DL High BUN 73 LAB L500.58101 0.670-1.170 MG/DL High CREAT 1.490 Result Comment: Patients receiving either N-Acetylcysteine (NAC) or Metamizole prior to venipuncture, may have falsely depressed results. LAB L500.26476 15-24 High BUN/CREA 49 LAB L500.58349 8.5-10.1 MG/DL Normal CALCIUM TOTAL 8.5 Performed By: #### L500.90805, L500.70164, L500.57700, L500.76358, L500.41707 #### [facility] [address] [place] [address] GFR EST Collected: 07/04/2018 Status: F Source: [facility] 8:40 AM [facility] REPOSITORY Order Comment: [employer]: M TYPE CODE TESTS RESULT OUT OF RANGE REFERENCE UNITS LAB L500.75803 ML/MIN Normal IF non-AFR 48 AMER LAB L500.47166 ML/MIN Normal IF 58 AMER Performed By: #### L500.29794, L500.86665, L500.43179, L500.45858, L500.57579 #### [facility] [address] [place] [address] PBNP TEST Collected: 07/04/2018 Status: F Source: [facility] 8:40 AM [facility] REPOSITORY Order Comment: [employer]: M TYPE CODE TESTS RESULT OUT OF RANGE REFERENCE UNITS LAB L500.15058 0-900 PG/ML High PBNP TEST 14110 Result Comment: NT-proBNP results of less than 300 pg/ml effectively rules out acute congestive heart failure with 99% negative predictive value. Performed By: #### L500.87283, L500.31347, L500.07863, L500.11509, L500.36472 #### [facility] [address] [place] [address] IRON PANEL Collected: 07/04/2018 Status: F Source: [facility] 8:40 AM [facility] REPOSITORY Order Comment: [employer]: M TYPE CODE TESTS RESULT OUT OF RANGE REFERENCE UNITS LAB L500.93284 65-175 UG/DL Normal IRON 83 Result Comment: Patients treated with metal-binding drugs (e.g.deferoxamine) may have depressed iron values, as chelated iron may not properly react in the Siemens iron assay. LAB L500.58882 221-481 UG/DL Normal TIBC 364 LAB L500.01343 30-44 % Low IRON SAT 23 Performed By: #### L500.26497, L500.12906, L500.00517, L500.46215, L500.15299 #### [facility] [address] [place] [address] FERR Collected: 07/04/2018 Status: F Source: [facility] 8:40 AM [facility] REPOSITORY Order Comment: Kountze: M TYPE CODE TESTS RESULT OUT OF RANGE REFERENCE UNITS LAB L500.92386 24.0-388.0 NG/ML Normal FERR 183.0 Performed By: #### L500.78169, L500.59783, L500.92469, L500.10284, L500.79890 #### [facility] [address] [place] [address] TROPONIN I Collected: 07/04/2018 Status: F Source: [facility] 8:40 AM [facility] REPOSITORY Order Comment: Kountze: M TYPE CODE TESTS RESULT OUT OF RANGE REFERENCE UNITS LAB L550.39622 0.000-0.045 NG/ML Normal TROPONIN I 0.030 Performed By: #### L550.05068 #### [facility] [address] [place] [address] ABO/RH NC Collected: 07/04/2018 Status: F Source: [facility] 8:40 AM [facility] REPOSITORY Order Comment: Kount[place]: M Is This Patient Going To Surgery? Y Surgery Date: 07/17/18 TYPE CODE TESTS RESULT OUT OF RANGE REFERENCE UNITS LAB B100.0400 O Normal BLOOD NEGATIVE TYPE ANTIBODY SCREEN Collected: 07/04/2018 Status: F Source: [facility] 8:40 AM [facility] REPOSIT[facility] Order Comment: [place]ze: M Is This Patient Going To Surgery? Y Surgery Date: 07/17/18 TYPE CODE TESTS RESULT OUT OF RANGE REFERENCE UNITS LAB B100.0680 Normal ANTIBODY NEGATIVE SCREEN MRSA PCR Collected: 07/04/2018 Status: F Source: [facility] 8:40 AM [facility] REPOSIT[facility] Order Comment: Kountze: M TYPE CODE TESTS RESULT OUT OF RANGE REFERENCE UNITS LAB L770.88899 NEGATIVE Normal MRSA NEGATIVE PCR Result Comment: PLEASE NOTE: TESTING DONE BY [employer]. LAB L770.63766 NEGATIVE Normal NEGATIVE SA PCR Result Comment: PLEASE NOTE: TESTING DONE BY [employer]. Performed By: #### L770.39423 #### [facility] [place] [address] Observed: 07/04/2018 Status: F Source: [facility] URINE CULTURE 8:06 AM [facility] REPOSITORY Order Comment: Kountze: M NO GROWTH AFTER 48 HOURS Performed By: #### M100.73822 #### [facility] [address] [place] [address] CARDIOLOGY VISIT Observed: 07/03/2018 Status: F Source: [place] [facility] 12:29 PM [facility] REPOSITORY [facility] [address] [place] [address] OFFICE VISIT Date of Service: 07/03/18 MR#: [id number] Acct: [id number] Name: MAURI QUINONES Rep #: [id number] : 1955 Provider: HARPAL Larkin Age/Sex: 62/M Location: [facility] Status: Signed HPI HPI Details: MAURI QUINONES, is a 62 M who presents to the office today for a cardiovascular outpatient follow-up. He has a history of coronary artery disease status post bypass surgery with a CARTY to LAD, SVG to the OM system and SVG to the PDA in March 2017 at [facility], postoperative ventricular tachycardia requiring resuscitation after bypass surgery, valvular heart disease, cardiomyopathy, congestive heart failure, pulmonary hypertension, and diabetes mellitus. Patient presented to [facility] emergency part for worsening edema in June 2018. This was associated with mild shortness of breath. His EKG shows sinus rhythm at a rate of 53 bpm with a chronic incomplete right bundle branch block and a BNP of 1441.7. He was given IV Lasix 60 mg and his oral Lasix was increased to 60 mg twice a day. His lisinopril was decreased to 20 mg due to increase in creatinine. His hydralazine was discontinued. Pt denies chest, arm, jaw, or neck discomfort. His exercise tolerance is stable. Pt denies symptoms of palpitations, lightheadedness, dizziness, near syncopal or syncopal episodes. Pt denies claudication issues. Pt. denies orthopnea, PND, fever, chills, blood in urine, blood in stool, myalgia, or unexplainable fatigue. His edema is improved, but still present. Intake Vital Signs07/03/18 Height 5 ft 10 in 07/03/18 Weight: 189 lb 07/03/18 Body Mass Index (BMI) 27.1 07/03/18 Blood Pressure 122/68 H 07/03/18 Blood Pressure Location Lt brachial Intake Visit Reasons: Edema [employer] Lab Technician Required: No Accompanied by: none Is patient in pain?: No Allergies pregabalin [From Lyrica] Allergy (Verified 07/03/18 09:10) Angioedema Medications Gabapentin [Neurontin] 300 mg PO BID 03/12/17 [History Confirmed 06/29/18] Celecoxib [Celebrex] 200 mg PO PRN PRN 06/04/17 [History Confirmed 06/29/18] aspirin 81 mg tablet,delayed release 81 mg PO BID #180 tab 08/23/17 [Rx Confirmed 06/29/18] carvedilol 25 mg tablet 25 mg PO BID #180 tab 05/14/18 [Rx Confirmed 06/29/18] Doxazosin Mesylate [Cardura] 8 mg PO BID 06/03/18 [History Confirmed 06/29/18] Hydrocodone Bitart/Apap 5-325 [Acme 5MG-325MG] 1 tab PO Q4H PRN PRN 06/03/18 [History Confirmed 06/29/18] Insulin Detemir [Levemir] 17 unit SQ DINNER 06/03/18 [History Confirmed 06/29/18] Latanoprost 0.005% [Xalatan Opthalmic] 1 drp EACH EYE QHS 06/03/18 [History Confirmed 06/29/18] Metolazone [Zaroxolyn] 5 mg PO UD 06/03/18 [History Confirmed 06/29/18] Multivits,Ca,Min/Iron/FA/Lycop [Centrum Men's Tablet] 2 ea PO DAILY 06/03/18 [History Confirmed 06/29/18] Pravastatin Sodium 80 mg PO DAILY 06/03/18 [History Confirmed 06/29/18] Tadalafil [Cialis] 20 mg PO PRN PRN 06/03/18 [History Confirmed 06/29/18] furosemide 40 mg tablet 60 mg PO BID tab 07/03/18 [History Confirmed 07/03/18] lisinopril 40 mg tablet 20 mg PO DAILY tab 07/03/18 [History Confirmed 07/03/18] PFSH Medical History Leg swelling (Chronic) Leg edema (Chronic) Overweight (BMI 25.0-29.9) (Chronic) CAD (coronary artery disease) (Chronic) Ankylosing spondylitis (Chronic) Renal insufficiency (Chronic) HTN (hypertension) (Chronic) Ventricular tachyarrhythmia (Chronic) Atherosclerosis of [place] coronary artery of [place] heart without angina pectoris (Chronic) DM2 (diabetes mellitus, type 2) (Chronic) Gout (Chronic) Diabetes mellitus with neuropathy (Chronic) Abscess of right foot (Chronic) CHF (congestive heart failure) (Chronic) NSTEMI (non-ST elevated myocardial infarction) (Chronic) Valvular heart disease (Chronic) Cardiomyopathy (Chronic) Pulmonary HTN (Chronic) Acute systolic heart failure (Chronic) Biliary pleural effusion (Chronic) Bradycardia (Chronic) Surgical History Hx of CABG (Chronic 04/12/17) Hx of arthroscopy (Chronic) hx femur surgery (Chronic) History of open reduction and internal fixation (ORIF) procedure (Resolved) Family History Father CAD (coronary artery disease) Mother CAD (coronary artery disease) Social History Smoking Status: Never smoker alcohol intake: never substance use type: does not use caffeine: Yes Type: carbonated beverages Number of servings: 4 what type of physical activity do you participate in: none seatbelt use: always do you feel safe at home: Yes ROS Const Const: Negative for fatigue, weakness, body ache, fever(s) or chills ENT ENT: Negative for dizziness Cardio Chest Pain: No Palpitations: No Edema: Bilateral Muscle aches with walking: None Resp Respiratory: Negative for SOB with activity, SOB at rest, SOB orthopnea\SOB lying down or paroxysmal nocturnal dyspnea GI GI: Negative nausea, black,tarry stools, bright, red blood in stools or vomiting blood/hematemesis : Negative for hematuria or frequent nighttime urination/ nocturia Musc Musc: Negative for muscle aches/ myalgia Skin Skin: Negative non-healing lesions or rash Neuro Neuro: Negative for weakness, dizziness, lightheadedness, near syncope, syncope or orthostatic symptoms Endo Endo: Negative for fatigue Allergy Allergy/Immunology: Negative for rash Cardiology Exam Const Appearance: cooperative, healthy appearing, comfortable and no acute distress Nutritional Appearance: average body habitus and well nourished Orientation: alert, awake and oriented x3 Head Head: normal to inspection Ears: hearing grossly normal bilaterally Nose: external nose normal Face and Sinus: face symmetric Mouth: oral mucosae normal Eyes General: appearance normal, both eyes and all related structures Eyelids: eyelids normal EOM: EOM intact bilaterally Neck Neck: no JVD and normal visual inspection Carotids: normal carotid upstroke Chest Chest inspection: normal inspection of the chest and normal respiratory effort; negative cough Auscultation: Bilateral: Clear to Auscultation Cardio Rate: regular rate Rhythm: regular rhythm Heart sounds: S1 normal and S2 normal; negative rub, gallop or murmur GI GI: normal to inspection Neuro General: alert, awake, oriented x3 and CN's II-XI intact bilaterally Skin Skin: no rashes or lesions noted Extremities Pulses: Normal: Right Posterior Tibial Pulse, Left Posterior Tibial Pulse, Right Radial Pulse, Left Radial Pulse Lower Extremity Edema: +2: Bilateral Psych Psychological: normal affect Supplemental Info Echocardiogram from July 2017 showed estimated ejection fraction 45%, mildly dilated left ventricle, mild concentric LVH, mildly enlarged left atrium, mildly enlarged right atrium, mild diffuse mitral thickening, trivial mitral valve insufficiency, trivial tricuspid valve insufficiency, aortic sclerosis, no stenosis, trivial aortic valve insufficiency, calcified aortic root, RVSP of 41 mmHg, and diastolic dysfunction. Heart catheterization from February 2017 showed elevated LVEDP DP, moderately to severely elevated right heart pressures, ejection fraction of 30%, and [place] multivessel coronary artery disease. Left main coronary artery had 25% stenosis, mid LAD had 50-75% stenosis, ostial circumflex had 85% stenosis, OM1 had 95% stenosis, and right PDA was subtotally occluded. He was referred to tertiary care center for bypass surgery. Assessment AND Plan 1. Leg edema R60.0 Plan His edema is improved since adjusting his PO diuretic and the IV Lasix in the emergency department. He will continue with Lasix 60 mg twice daily and metolazone 5 mg 2 times a week. He will undergo a BMP evaluation tomorrow to assess his kidney function. We will see him back on 07/15 to assess lower extremity edema. If his edema has worsened, we will consider an infusion of IV Lasix 60mg prior to knee surgery on 07/17. The patient is concerned that his lower extremity edema will postpone hip replacement surgery, which has already been postponed once due to low hemoglobin. Thus, his appointment on 07/15 is a cautionary appointment to ensure that his edema is improved prior to surgery. 2. Atherosclerosis of [place] coronary artery of [place] heart without angina pectoris I25.10 S/P surgery with CARTY to LAD, SVG to OM system, and SVG to PDA in March 2017 at [facility]; Plan Patient denies any chest pain, arm pain, jaw pain, neck pain, shortness of breath, or fatigue suggestive of angina at this time. We will continue to monitor this. We will not make any medication regimen changes and will continue risk factor modification. Orders Orders: 3. Hx of CABG Z95.1 CARTY to LAD, SVG to PDA, SVG to OM 04/12/2017 @ [facility]; Plan He will continue current treatment as outlined above. 4. Chronic systolic congestive heart failure I50.22 Plan His echocardiogram from July 2017 showed an ejection fraction of 45%. His shortness of breath is improved since his diuretic was adjusted. His lisinopril was decreased to better protect his kidneys due to increasing creatinine level. At this time he will continue current medications and we will continue to monitor. Of note his hydralazine was discontinued. Orders Orders: 5. Essential hypertension I10 Plan Patient's blood pressure is well-controlled today in the office. We will continue to monitor this. We will not make any medication regimen changes. Orders Orders: Plan Detail Other Medications Changed: Additional Comments Thank you for allowing us to participate in the patient's plan of care, if you have any questions please do not hesitate to call. This note was generated using a voice recognition system and there may be incorrect words, spelling, or punctuation that were not noted upon reviewing the office note prior to saving. Coding Level of Care Code Off vis,est,level 3 Diagnoses Leg edema R60.0 Atherosclerosis of [place] coronary artery of [place] heart without angina pectoris I25.10 Hx of CABG Z95.1 Chronic systolic congestive heart failure I50.22 Heart failure chronicity: chronic Heart failure type: systolic Essential hypertension I10 Hypertension type: essential hypertension Coding Level of Care Code Off vis,est,level 3 Diagnoses Leg edema R60.0 Atherosclerosis of [place] coronary artery of [place] heart without angina pectoris I25.10 Hx of CABG Z95.1 Chronic systolic congestive heart failure I50.22 Heart failure chronicity: chronic Heart failure type: systolic Essential hypertension I10 Hypertension type: essential hypertension 07/03/18 1229 <Electronically signed by Ziggy MOTA> Date Ziggy MOTA Cosigner Signature: Date (if applicable) CC: Aditya Davis CNPTOUTREACH Observed: 07/02/2018 Status: COMPLETED Source: [place] 12:00 AM [facility] REPOSITORY Patient Outreach ([facility]) MAURI QUINONES ([id number]) 1955 M Date Time Provider Department 07/02/18 [facility]ity[facility] DAVIS [facility]-C) [facility] During your visit today, we recorded the following information about you: Allergies As of Date: 07/02/2018 Noted Allergy Reaction LYRICA (PREGABALIN) 03/23/2017 7 - Swelling Date Reviewed: 05/03/2018 Reviewed by: Juany Rizo LPN - Fully Assessed Visit Diagnosis:Medication management [Z79.899] Order(s):LIPID PANEL BASIC [SQLIPB] Order #: [id number] FUTURE Prescriptions as of 07/02/2018 Sig: MOMETASONE 0.1 % TOPICAL CREAM Apply 1 application to affect* X FERROUS SULFATE 325 MG (65 MG* Take 1 tablet by mouth twice * Patient not taking: Reported on 07/11/2018 X DOXAZOSIN 4 MG TABLET Take 4 mg by mouth twice jagdeep* X INSULIN DETEMIR (U-100) 100 U* Inject 20 Units subcutaneousl* Patient taking differently: Inject 17 Units subcutaneousl* FUROSEMIDE 40 MG TABLET Take 1 tablet by mouth once d* X HYDRALAZINE 25 MG TABLET Take 25 mg by mouth three solitario* CARVEDILOL 25 MG TABLET Take 25 mg by mouth twice rafita* METOLAZONE 2.5 MG TABLET Take 2.5 mg by mouth every ot* X GABAPENTIN 300 MG CAPSULE Take 1 capsule by mouth twice* DAILY MULTI ORAL Take 2 Each by mouth once rafita* TADALAFIL 20 MG TABLET Take 1 tablet by mouth as nee* X HYDROCODONE 5 MG-ACETAMINOPHE* Take 1 tablet by mouth every * X LISINOPRIL 40 MG TABLET Take 1 tablet by mouth once d* Patient taking differently: Take 20 mg by mouth once jagdeep* PRAVASTATIN 80 MG TABLET Take 80 mg by mouth once jagdeep* ASPIRIN 81 MG TABLET,DELAYED * Take 1 tablet by mouth once d* Patient not taking: Reported on 07/11/2018 LATANOPROST 0.005 % EYE DROPS Use 1 Drop in both eyes daily* Problem List As Of Date 07/02/2018 Noted Resolved Uncontrolled type 2 diabetes mellitus without c*INVALID FOR* More... 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 Hypertension, essential [I10] INVALID FOR* Lower leg edema [R60.0] INVALID FOR* More... Chronic left hip pain [M25.552, G89.29] INVALID FOR* Anemia of chronic renal failure, stage 3 (moder*INVALID FOR* Encounter Status:Closed by ARINA SALOMONUSER on 08/02/18 12 LEAD ELECTROCARDIOGRAM Observed: 07/01/2018 Status: F Source: [place] 3:43 PM [facility] REPOSITORY [facility] Cardiovascular Services [address] [place] [address] 12 Lead EKG 06/29/181947 MR#: [id number] Acct: [id number] Name: MAURI QUINONES Rep #: [id number] : 1955 62 From: José Miguel Nunez MD Attending Dr: Status: DEP ER Ordering Dr: Ra Lange MD Date: 06/29/18 Location: ED Sex: M C Admitted: Test Reason : EDEMA Blood Pressure : / mmHG Vent. Rate : 053 BPM Atrial Rate : 053 BPM P-R Int : 234 ms QRS Dur : 116 ms QT Int : 488 ms P-R-T Axes : 061 012 054 degrees QTc Int : 457 ms Sinus bradycardia with 1st degree A-V block Incomplete right bundle branch block Possible Inferior infarct , age undetermined Possible Anterior infarct , age undetermined Abnormal ECG Confirmed by JOSÉ MIGUEL NUNEZ MD ([id number]), senior technical editor GENEVA GTZ ([id number]) on 07/01/2018 3:43:01 PM Referred By: AC Confirmed By:JOSÉ MIGUEL NUNEZ MD 07/01/18 1543 Date José Miguel Nunez MD CC: Aditya Davis; Ra Lange MD Signed EMERGENCY DEPARTMENT Observed: 06/30/2018 Status: F Source: [place] SUMMARY 12:17 AM [facility] REPOSITORY [facility] Medical Records Department [address] [place] [address] Emergency Department Summary 06/29/182126 MR#: [id number] Acct: [id number] Name: MAURI QUINONES Rep #: [id number] : 1955 62 From: Ra Lange MD PCP: Aditya Davis Status: DEP ER - ER Visit Summary Date of Service: 06/29/18 Chief Complaint: Edema History of Present Illness: The patient is a 62 M with bilateral lower leg edema. This has been going on for a month. It has been getting worse of the last couple days. He attributes it to his history of CHF. He called his financial data analyst office and he was switched recently from 40 mg of Lasix once a day to 40 mg twice a day. He has some mild shortness of breath, but emphasizes that it is mild. He does not have chest pain or any other symptoms with this. Physical Examination: His blood pressure is 188/93. Otherwise his vitals are unremarkable. Pulse ox 94% on room air. He is sitting and breathing comfortably. He has 3+ pitting edema from his feet up to his mid thigh, symmetric. Nontender. Neurovascular intact distally. Otherwise his heart is regular. No respiratory distress, lungs are clear. Skin appears normal. Test Results: EKG showed sinus rhythm at a rate of 53, chronic, incomplete right bundle branch block pattern and nonspecific ST and T wave changes, unchanged. White count 4.3, hemoglobin 10.1, stable. BUN 86 and creatinine 2.0, both increased from 1 month ago. Troponin normal. BNP pending. X-ray shows cardiomegaly and congestion. Emergency Department Course and Treatment: Patient was placed on the monitor. EKG, x-ray, and labs were done. He was discussed with Dr. Nunez. Patient will be treated with 1 dose of IV Lasix, 60 mg. Decrease lisinopril to 20 mg daily. Stop hydralazine. Change Lasix dose to 60 mg twice a day. The patient does have 20 mg tablets of Lasix at home. He will call the office on Sunday for follow- up. Return to the ER for any new or worsening symptoms. Treatment Plan: As above Disposition: Discharge Impression: 1. Peripheral edema This note was generated with [employer] dictation software. It may contain incorrect words, spelling, and punctuation that were not noted in review of the chart prior to signing ED Disposition - Plan for ED Patient: Chief Complaint: Edema Referrals: Aditya Davis PA [Primary Care Provider] - What to do if you have Problems For any increased pain, shortness of breath, bleeding, nausea or vomiting, chest pain, or any unexpected problems, contact your Primary Care Provider. Call [facility] ([phone]) or report to the closest Emergency Room. Call 911 if necessary. 06/30/18 0017 <Electronically signed by Ra Lange MD> Date Ra Lange MD Cosigner Signature (If Indicated): Date CC: Aditya Davis DISCHARGE INSTRUCTION Observed: 06/30/2018 Status: F Source: [place] 12:17 AM [facility] REPOSITORY [facility] Medical Records Department [address] [place] [address] Discharge Instruction 06/29/182129 MR#: [id number] Acct: [id number] Name: MAURI QUINONES Rep #: [id number] : 1955 62 From: Ra Lange MD PCP: Aditya Davis Status: DEP ER ED Disposition - Plan for ED Patient: Chief Complaint: Edema Instructions: ED Leg Swelling Bilateral Referrals: Lee Chacon MD [STAFF PHYSICIAN] - Additional Instructions: Stop hydralazine. Decrease your lisinopril dose to 20 mg. Change your Lasix to 60 mg twice a day What to do if you have Problems For any increased pain, shortness of breath, bleeding, nausea or vomiting, chest pain, or any unexpected problems, contact your Primary Care Provider. Call [facility] ([phone]) or report to the closest Emergency Room. Call 911 if necessary. 06/30/18 0017 <Electronically signed by Ra Lange MD> Date Ra Lange MD Cosigner Signature (If Indicated): Date CC: Aditya Davis CHEST 1 VIEW Observed: 06/29/2018 Status: F Source: [place] (PORTABLE) 7:25 PM [facility] REPOSITORY [facility] Imaging Services [address] [place] [address] Chest 1 View (Portable) MR#: [id number] Acct: [id number] Name: MAURI QUINONES Rep #: [id number] : 1955 M 62 From: Cade Denson MD PCP: Aditya Davis Status: REG ER Study: Chest 1 View (Portable) Date of Exam: 06/29/18 Exam# [id number] Ordering Dr: Ra Lange MD STUDY: X-RAY CHEST REASON FOR EXAM: Male, 62 years old. Bilateral leg edema for 3 weeks. TECHNIQUE: Single frontal view of the chest. COMPARISON: March 12, 2017 FINDINGS: The lungs are hyperexpanded. The patchy opacities at both bases on the prior study have decreased in density. There are still patchy opacities in the lower lobes. There is a right pleural effusion/pleural thickening. There is stable marked cardiomegaly with sternotomy wires. Normal mediastinum and sofi. Normal visualized pulmonary arteries. There is atherosclerotic calcification of the aortic arch with tortuosity. Normal visualized thoracic spine. Normal visualized ribs, clavicles, and shoulders. There is no demonstrated abnormality of the visualized soft tissue structures of the upper abdomen. RAD/Chest 1 View (Portable) IMPRESSION: Cardiomegaly with a mild diffuse bilateral lower lobe interstitial pattern. No acute pathology. Electronically Signed: Cade Denson MD at 20:14 EDT , Service support , CC: Aditya Davis; Ra Lange MD Arc Welder Apprentice: Signed BASIC METABOLIC Collected: 06/29/2018 Status: F Source: [place] PROFILE (BMP) 7:24 PM [facility] REPOSITORY TYPE CODE TESTS RESULT OUT OF RANGE REFERENCE UNITS LAB L501.0100 74-106 mg/dL High GLU 315 Result Comment: Glucose result greater than or equal to 200 mg/dL suggests DIABETES MELLITUS per A.D.A. criteria. Please note revised GLUCOSE reference range effective 2017. LAB L501.1000 7-18 mg/dL High BUN 86 LAB L501.1100 0.70-1.30 mg/dL High CREAT,SERUM 2.00 Result Comment: The validity of the calculated GFR AND GFRAA in patients over 70 years has not been determined. Clinical correlation is essential. LAB L501.1110 >60 mL/min Low EST GFR 36 Result Comment: Non- GFR Calc LAB L501.1115 >60 mL/min Low EST GFR - AA 44 Result Comment: GFR Calc LAB L501.1255 ml/min Normal Estimated CRCL 40.56 LAB L501.1300 10-20 RATIO High BUN/CRE 43.0 LAB L501.2200 8.5-10 mg/dL Low .1 CA 7.9 LAB L501.5300 136-14 mmol/L Normal 5 NA 137 LAB L501.5600 3.5-5. mmol/L Normal 1 K 4.9 LAB L501.5900 98-107 mmol/L Normal CL 104 LAB L501.6100 21.0-3 mmol/L Normal 2.0 CO2 26.0 LAB L501.6200 5-15 Normal GAP 7 Performed By: #### L500.2500, L501.4010 #### [facility] [address] [place], [address] TROPONIN-I Collected: 06/29/2018 Status: F Source: [place] 7:24 PM [facility] REPOSITORY TYPE CODE TESTS RESULT OUT OF RANGE REFERENCE UNITS LAB L501.4010 <0.045 ng/mL Normal 0.020 TROPONIN-I Result Comment: TROPONIN-I EXPECTED VALUES <0.045 Negative 0.045 - 0.590 Consistent with Cardiac Damage > OR = 0.600 Critical Value Not every elevated troponin is indicative of UT. These values should be used with clinical judgement in examining the patient's clinical picture for diagnosis. To establish a diagnosis of UT versus myocardial injury, there must be a demonstrated rise and/or fall in the troponin values, in addition to ischemic symptoms, EKG changes, new regional wall motion abnormality, and/or angiographical evidence. PLEASE NOTE: REFERENCE RANGES EDITED 18 Performed By: #### L500.2500, L501.4010 #### [facility] [address] [place], [address] CBC W/DIFF, AUTOMATED Collected: 06/29/2018 Status: F Source: [place] 7:24 PM [facility] REPOSITORY TYPE CODE TESTS RESULT OUT OF RANGE REFERENCE UNITS LAB L100.1000 4.4-11.0 K/mm3 Low WBC 4.3 LAB L100.1200 4.6-6.2 M/mm3 Low RBC 3.56 LAB L100.1300 13.0-16.5 g/dl Low HGB 10.1 LAB L100.1400 40-54 % Low HCT 32.1 LAB L100.1500 80-94 fL Normal MCV 90.2 LAB L100.1600 27.0-32.0 pg Normal MCH 28.4 LAB L100.1700 32-36 g/gl Low MCHC 31.5 LAB L100.1810 11.6-14.6 % Normal RDW CV 14.5 LAB L100.1820 35.1-43.9 fl High RDW SD 47.9 LAB L100.1900 150-450 K/mm3 Normal PLT 232 LAB L100.2000 6.2-12.0 fl Normal MPV 8.9 LAB L100.2100 47-70 % High NEUT% 71.3 LAB L100.2200 19-41 % Low LY% 13.4 LAB L100.2300 0-10 % High MONO% 11.1 LAB L100.2400 0-5 % Normal EO% 3.5 LAB L100.2500 0-1 % Normal BASO% 0.5 LAB L100.2550 0.0-0.9 % Normal IM GRAN % 0.200 Result Comment: IG% - Immature Granulocytes (promyelocytes, myelocytes and metamyelocytes) > 1% indicates that a LEFT SHIFT is Present. LAB L100.2620 2.0-7.7 X10 3/uL Normal Absolute Neut 3.1 LAB L100.2720 0.83-4.51 X10 3/ul Low Absolute Lymph 0.58 LAB L100.4500 Normal SMEAR COMMENT SCANNED Result Comment: LYMPHOPENIA NOTED Performed By: #### L100.0100 #### [facility] [address] [place], [address] BNP,B-TYPE NATRIURETIC Collected: 06/29/2018 Status: F Source: [place] PEPT[place] 7:24 PM [facility] REPOSITORY TYPE CODE TESTS RESULT OUT OF RANGE REFERENCE UNITS LAB L503.6620 0-100 pg/mL High B-TYPE 1441.7 ESPERANZA PEP Performed By: #### L503.6620 #### [facility] [address] [place], [address] WOUND CTR HISTORY Observed: 06/03/2018 Status: F Source: [place] AND PHYSICAL 4:30 PM [facility] REPOSITORY [facility] [address] [place] [address] Wound Ctr History AND Physical 06/03/18 1618 MR#: [id number] Acct: [id number] Name: MAURI QUINONSE Rep #: [id number] : 1955 62 From: Vadim Ferrell MD PCP: Aditya Davis Status: REG RCR Y Location: WC (1) Leg swelling Status: Chronic Current Visit: Yes Code(s): M79.89 - Other specified soft tissue disorders (2) Leg edema Status: Chronic Current Visit: Yes Code(s): R60.0 - Localized edema (3) Overweight (BMI 25.0-29.9) Status: Chronic Current Visit: No Code(s): E66.3 - Overweight (4) CAD (coronary artery disease) Status: Chronic Current Visit: No Qualifiers: Coronary Disease-Associated Artery/Lesion type: [place] artery Code(s): I25.10 - Atherosclerotic heart disease of [place]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 angina pectoris (5) Ankylosing spondylitis Status: Chronic Current Visit: No Code(s): M45.9 - Ankylosing spondylitis of unspecified sites in spine (6) Renal insufficiency Status: Chronic Current Visit: No Code(s): N28.9 - Disorder of kidney and ureter, unspecified (7) HTN (hypertension) Status: Chronic Current Visit: No Qualifiers: Code(s): I10 - Essential (primary) hypertension (8) Hx of CABG Status: Chronic Current Visit: No Code(s): Z95.1 - Presence of aortocoronary bypass graft Comment: CARTY to LAD, SVG to PDA, SVG to OM 04/12/2017 @ [facility]; (9) Atherosclerosis of [place] coronary artery of [place] heart without angina pectoris Status: Chronic Current Visit: No Code(s): I25.10 - Atherosclerotic heart disease of [place]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 angina pectoris Comment: S/P surgery with CARTY to LAD, SVG to OM system, and SVG to PDA in March 2017 at [facility]; (10) DM2 (diabetes mellitus, type 2) Status: Chronic Current Visit: No Qualifiers: Code(s): E11.9 - Type 2 diabetes mellitus without complications (11) Diabetes mellitus with neuropathy Status: Chronic Current Visit: No Qualifiers: Code(s): E11.40 - Type 2 diabetes mellitus with diabetic neuropathy, unspecified History of Present Illness Chief Complaint: Swelling and edema of the lower extremities bilaterally History of Wound: This is a 62-year-old male who presents with a recent history of swelling and edema in both lower extremities. This has been ongoing for approximately 4 weeks. In recent months, the patient has been much less active, owing to some orthopedic problems in his lower extremities, as well as a history of coronary revascularization. In February 2017, the patient suffered a myocardial infarction. In March 2017, patient underwent coronary revascularization. He has had problems with his right hip in recent months, and has begun using a cane for ambulation. As result, he has been less active than usual. He states that the swelling is at a minimum in the morning when he awakens. He sleeps on a flat mattress at night. The swelling is more pronounced in the evening. He denies a history of thrombophlebitis in the past. Past Medical History Past Medical History: Chronic Problems (Last Reviewed 01/15/18 @ 14:04 by Wong Dale) Leg swelling (Chronic) Leg edema (Chronic) Overweight (BMI 25.0-29.9) (Chronic) CAD (coronary artery disease) (Chronic) Ankylosing spondylitis (Chronic) Renal insufficiency (Chronic) HTN (hypertension) (Chronic) Hx of CABG (Chronic 04/12/17) CARTY to LAD, SVG to PDA, SVG to OM 04/12/2017 @ [facility]; Ventricular tachyarrhythmia (Chronic) Atherosclerosis of [place] coronary artery of [place] heart without angina pectoris (Chronic) S/P surgery with CARTY to LAD, SVG to OM system, and SVG to PDA in March 2017 at [facility]; DM2 (diabetes mellitus, type 2) (Chronic) Gout (Chronic) Diabetes mellitus with neuropathy (Chronic) Abscess of right foot (Chronic) CHF (congestive heart failure) (Chronic) NSTEMI (non-ST elevated myocardial infarction) (Chronic) Valvular heart disease (Chronic) Cardiomyopathy (Chronic) Pulmonary HTN (Chronic) Past Medical History: Patient has a history of hypertension, renal insufficiency, and ankylosing spondylitis. He also has a history of coronary artery disease and diabetes mellitus. Prior testing has revealed an ejection fraction of 45%. He also suffers from a hearing deficit. His history is negative for cerebrovascular accident, cancer, pulmonary disease, hyperlipidemia, and thyroid disease. Surgical History: arthroscopy, knee, - - knee, hip, femur surgery with retained hardware (surgeon Dr. 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 Lives: Spouse/ Significant Other Smoking Status: Never smoker Tobacco Use: Non-smoker Alcohol: None Drugs: None Review of Systems Constitutional: Denies: Chills, Fever, Weight Change Eyes: Denies: Pain, Vision Change HEENT: Denies: Difficulty Hearing, Difficulty Swallowing, Sinus Congestion Cardiovascular: Denies: Chest Pain, Palpitations Respiratory: Denies: Cough, Shortness of Breath Gastrointestinal: Denies: Diarrhea, Nausea, Vomiting Genitourinary: Denies: Dysuria, Hematuria Endocrine: Denies: Heat/ Cold Intolerance, Polydipsia, Polyuria Hematologic/ Lymphatic: Denies: Easy Bruising, Easy Bleeding - Physical Exam Vital Signs Temp Pulse Resp BP 98.9 F 53 L 18 173/81 H 06/03/18 15:01 06/03/18 15:01 06/03/18 15:01 06/03/18 15:01 General: Alert, Oriented x3, Cooperative, No apparent distress, Well developed, Well nourished HEENT: Atraumatic, PERRLA, EOMI, Normocephalic Oral: Moist Mucosa, No Gingival or Mucosal Lesions/ Ulcerations Neck: No JVD, Negative Carotid Bruits, Negative Hepatojugular Reflux, No Nodes, No Nuchal Rigidity, Trachea Midline Lungs: Clear to auscultation, Normal air movement, No rhonchi, No wheeze, No rales Cardiovascular: Regular rate, Regular Rhythm, Normal S1, Normal S2, No murmurs, No Ectopic Activity Abdomen: Soft, Non Tender, Non-Distended Extremities: No clubbing, No cyanosis, No Calf Tenderness, - - Mild bilateral lower extremity swelling and edema is noted in the lower extremities. There are no open wounds or ulcerations. Lower extremities are warm and well perfused. Normal hair growth is noted. Circumference measurements have been documented elsewhere. Wound Measurements and Assessment WC - Nurse 1 - General Ulcer Measurement Start: 06/03/18 15:00 Freq: Status: Active Protocol: Activity Type Activity Date Activity User E-Sign Co-Sign Detail Recorded Client Recorded Date Recorded By Document 06/03/18 15:01 MADISON [id number] 06/03/18 15:18 Wound Center Nurse 1 [Edema Assessment] -Lower Limb Edema Present Yes -Right Calf (cm) 39.4 -Right Ankle (cm) 24.3 -Left Calf (cm) 38 -Left Ankle (cm) 25 WC - Nurse 2 - General Ulcer CM Notes Start: 06/03/18 15:00 Freq: Status: Active Protocol: Activity Type Activity Date Activity User E-Sign Co-Sign Detail Recorded Client Recorded Date Recorded By Document 06/03/18 15:59 JS [id number] 06/03/18 16:01 JS Pain Scale: 0-10 Numeric [Pain] -Is Patient Pain Free? Yes Musculoskeletal: No Muscle Wasting Neurological: Cranial nerves II-XII grossly intact, Neuro grossly intact Psych/Mental Status: Normal Affect, Appropriate, Alert and oriented to time, place, person, mood and affect Debridement Note Post-Debridement Measurements/Treatment WC - Nurse 2 - General Ulcer CM Notes Start: 06/03/18 15:00 Freq: Status: Active Protocol: Activity Type Activity Date Activity User E-Sign Co-Sign Detail Recorded Client Recorded Date Recorded By Document 06/03/18 15:59 [id number] 06/03/18 16:01 ALVIN Pain Scale: 0-10 Numeric Is Patient Pain Free? Yes No debridement was completed today Assessment/Plan Active Problems (Last Reviewed 01/15/18 @ 14:04 by Wong Dale) Leg swelling (Chronic) Leg edema (Chronic) Assessment: This is a 62-year-old male who presents with a 4-week history of swelling and edema in his lower extremities. It appears that this is likely related to decreasing activity and lower extremity dependency. His other medical problems have been documented above. Evaluation reveals no evidence of wounds or ulcerations in his lower extremities. The patient has undergone recent laboratory studies, with results as follows: White blood count 5.5, hemoglobin 11.4, hematocrit 36.0, platelets 241,000, sodium 140, potassium 4.9, chloride 104, BUN 9, creatinine 73, glucose 140. Plan: We are to implement conservative treatment measures initially with respect to the patient's lower extremity swelling and edema. The patient has been advised to elevate his lower extremities as much as possible. He currently sleeps on a flat mattress at night. This is to be continued. He is to elevate his lower extremities to heart level, or higher, even during daytime hours. This is to be accomplished as much as possible. He has been encouraged to be as active as possible. Prolonged idle sitting has been discouraged. The patient has been encouraged to keep his weight within normal range. Compression is to be considered, but we will first obtain a venous and arterial study of the lower extremities, to assess the status of veins and arteries in the lower extremities. Assuming no evidence of significant arterial occlusive disease, we will initiate compression to the lower extremities by means of wraps initially, followed by long-term management using graduated compression stockings or CircAid garments. Patient has been advised to optimize his glycemic control, and collaboration with his primary care physician. The patient is return in 1 week for reassessment. The patient is not a smoker. Influenza vaccine was not administered today. The patient weighs 178 pounds. He stands 5 feet 10 inches tall. His BMI is 25.5, which places him in an overweight category. Weight loss has been recommended, and collaboration with his primary care physician has been advised. 06/03/18 1630 <Electronically signed by Vadim Ferrell MD> Date Vadim Ferrell MD CC: Signed EMERGENCY DEPARTMENT Observed: 05/30/2018 Status: F Source: [place] SUMMARY 12:30 AM [facility] REPOSITORY [facility] Medical Records Department [address] [place] [address] Emergency Department Summary 05/29/18 1750 MR#: [id number] Acct: [id number] Name: MAURI QUINONES Rep #: [id number] : 1955 62 From: Mauri Tellez MD PCP: Aditya Davis Status: DEP ER - ER Visit Summary Date of Service: 05/29/18 Chief Complaint: Right long finger laceration repair wound evaluation History of Present Illness: The patient is a 62 M past medical history of insulin-dependent diabetes. Patient had an injury to his right long finger 9-10 days ago. This was a workers comp injury. The laceration to the right long finger along the palmar aspect also with a subungual hematoma. He was treated at [facility]. Nurse practitioner closed the wound. States it was doing well however the stitches are starting to come apart. He is not supposed to have those removed until next Sunday. He denies any significant fever or redness. He states the swelling is coming down. I gave him a tetanus shot when he had this initially treated. He also had an x- ray that he states was negative. Physical Examination: Well-appearing middle-age male. Vital signs are stable afebrile. HEENT exam unremarkable. Lungs clear to auscultation. Heart regular rhythm no murmur. Abdomen soft nontender. He is moving all 4 extremities. They are neurovascularly intact. His right long finger has a laceration repair of the palmar distal tip of the right long finger there is a subungual hematoma about 100% on the nail and and on the dorsum there is additional laceration repair just proximal to the nail. Currently there is no signs of infection. It is swollen. There are no red streaks or pus. There is no gross bony deformity. He has flexion-extension all digits of the right hand. Sutures are coming loose I did remove 2 of them that had completely come untied. Test Results: None Emergency Department Course and Treatment: Discharge to home. Clean, antibiotic ointment and tube gauze. Treatment Plan: Wound care. Watch for signs of infection. Follow-up to have sutures removed. Disposition: Discharge Impression: Status post right long finger laceration repaired 9 days ago with wound check This note was generated with [employer] dictation software. It may contain incorrect words, spelling, and punctuation that were not noted in review of the chart prior to signing ED Disposition - Plan for ED Patient: Chief Complaint: Wound Check Referrals: Aditya Davis PA [Primary Care Provider] - What to do if you have Problems For any increased pain, shortness of breath, bleeding, nausea or vomiting, chest pain, or any unexpected problems, contact your Primary Care Provider. Call [facility] ([phone]) or report to the closest Emergency Room. Call 911 if necessary. 05/30/18 0030 <Electronically signed by Mauri Tellez MD> Date Mauri Tellez MD Cosigner Signature (If Indicated): Date CC: Aditya Davis DISCHARGE INSTRUCTION Observed: 05/30/2018 Status: F Source: [place] 12:30 AM [facility] REPOSITORY [facility] Medical Records Department [address] [place] [address] Discharge Instruction 05/29/18 1754 MR#: [id number] Acct: [id number] Name: MAURI QUINONES Rep #: [id number] : 1955 62 From: Mauri Tellez MD PCP: Aditya Davis Status: DEP ER ED Disposition - Plan for ED Patient: Disposition: Home or Assisted Living Chief Complaint: Wound Check Instructions: ED Wound Check Post Op No Infec Additional Instructions: Suture removal sometime between Sunday and Sunday. Watch for any signs of infection such as pus, redness, fever or streaks. Clean daily with peroxide and water or soap and water. Dry thoroughly. Antibiotic ointment to the wound. You may leave the dressing on for 3 days if it stays dry and clean. What to do if you have Problems For any increased pain, shortness of breath, bleeding, nausea or vomiting, chest pain, or any unexpected problems, contact your Primary Care Provider. Call [facility] ([phone]) or report to the closest Emergency Room. Call 911 if necessary. 05/30/18 0030 <Electronically signed by Mauri Tellez MD> Date Mauri Tellez MD Cosigner Signature (If Indicated): Date CC: Aditya Davis CARDIOLOGY VISIT Observed: 05/28/2018 Status: F Source: [place] REPORT 4:43 PM [facility] REPOSITORY [facility] [address] [place] [address] OFFICE VISIT Date of Service: 05/27/18 MR#: [id number] Acct: [id number] Name: MAURI QUINONES Rep #: [id number] : 1955 Provider: Florencia Brian Age/Sex: 62/M Location: [facility] Status: Signed HPI HPI Details: MAURI QUINONES, is a 62 M who presents to the office today for an urgent follow-up for lower extremity edema. This is been an ongoing issue for the last few months. His primary care doctor did add metolazone however his kidney function had worsened and his metolazone was decreased. He states that after that his lower extremity edema returned. He is here today to reevaluate this. He has a history of coronary artery disease status post bypass surgery with a CARTY to LAD, SVG to the OM system and SVG to the PDA in March 2017 at [facility], postoperative ventricular tachycardia requiring resuscitation after bypass surgery, valvular heart disease, cardiomyopathy, congestive heart failure, pulmonary hypertension, and diabetes mellitus. He sts that his edema got worse approx 2 weeks ago, around the same time we cut back on his diuretics. He did increase his lasix over the weekend and it did not help. He edema is better in the am and worsens in the afternoon. He has worn compression stocking and he does not think that this helped. He does get frequent cramps. Intake Vital Signs05/27/18 Height 5 ft 10 in 05/27/18 Weight: 182 lb 05/27/18 Body Mass Index (BMI) 26.1 05/27/18 Blood Pressure 146/68 H 05/27/18 Blood Pressure Location Lt brachial Intake Visit Reasons: PER MMM [employer] Lab Technician Required: No Accompanied by: Daughter Is patient in pain?: No Allergies pregabalin [From Lyrica] Allergy (Verified 05/27/18 15:08) Angioedema Medications Gabapentin [Neurontin] 300 mg PO BID 03/12/17 [History Confirmed 01/15/18] Insulin Detemir [Levemir FlexPen] 10 - 16 units SC QHS 03/12/17 [History Confirmed 05/27/18] Latanoprost 0.005% [Xalatan Opthalmic] 1 drp EACH EYE DAILY 03/12/17 [History Confirmed 05/27/18] Nitroglycerin [Nitrostat] 0.4 mg SUBLINGUAL Q5M PRN #10 tab 03/14/17 [Rx Confirmed 05/27/18] Celecoxib [Celebrex] 200 mg PO 06/04/17 [History Confirmed 01/15/18] Hydrocodone/Acetaminophen [Acme 5-325 Tablet] 06/04/17 [History Confirmed 05/27/18] Insulin Detemir [Levemir] 100 unit SQ 06/04/17 [History Confirmed 05/27/18] Insulin Lispro [Humalog] 100 unit SQ 06/04/17 [History Confirmed 05/27/18] Blood Pressure Cuff #1 ea 08/21/17 [Rx] aspirin 81 mg tablet,delayed release 81 mg PO BID #180 tab 08/23/17 [Rx Confirmed 05/27/18] tadalafil 20 mg tablet 20 mg PO PRN 08/23/17 [History Confirmed 05/27/18] Handicap Placard #1 ea 09/04/17 [Rx Confirmed 01/15/18] furosemide 40 mg tablet 40 mg PO QDAY 01/11/18 [History Confirmed 05/27/18] hydralazine 25 mg tablet 25 mg PO TID #90 tab 02/19/18 [Rx Confirmed 05/27/18] doxazosin 4 mg tablet 4 mg PO BID #180 tab 03/12/18 [Rx Confirmed 05/27/18] metolazone 5 mg tablet See Rx Instructions PO .COMPLEX #45 tab 05/02/18 [Rx Confirmed 05/27/18] carvedilol 25 mg tablet 25 mg PO BID #180 tab 05/14/18 [Rx Confirmed 05/27/18] lisinopril 40 mg tablet 40 mg PO QDAY #90 tab 05/14/18 [Rx Confirmed 05/27/18] pravastatin 80 mg tablet 80 mg PO QHS #90 tab 05/14/18 [Rx Confirmed 05/27/18] Ejection fraction %: 45 to 49 PFSH Medical History HTN (hypertension) (Chronic) Ventricular tachyarrhythmia (Chronic) Atherosclerosis of [place] coronary artery of [place] heart without angina pectoris (Chronic) DM2 (diabetes mellitus, type 2) (Chronic) Gout (Chronic) Diabetes mellitus with neuropathy (Chronic) Abscess of right foot (Chronic) CHF (congestive heart failure) (Chronic) NSTEMI (non-ST elevated myocardial infarction) (Chronic) Valvular heart disease (Chronic) Cardiomyopathy (Chronic) Pulmonary HTN (Chronic) Acute systolic heart failure (Chronic) Biliary pleural effusion (Chronic) Bradycardia (Chronic) Surgical History Hx of CABG (Chronic 04/12/17) Hx of arthroscopy (Chronic) hx femur surgery (Chronic) History of open reduction and internal fixation (ORIF) procedure (Resolved) Family History Father CAD (coronary artery disease) Mother CAD (coronary artery disease) Social History Smoking Status: Former smoker alcohol intake: never substance use type: does not use caffeine: Yes Type: carbonated beverages Number of servings: 4 what type of physical activity do you participate in: none seatbelt use: always do you feel safe at home: Yes ROS Const Const: Negative for weakness, fatigue, fever(s) or headache(s) Eyes Eyes: Negative for blind spots, loss of peripheral vision or transient loss of vision ENT ENT: Negative for headache(s), dizziness, tinnitus or Nosebleed/epistaxis Cardio Chest Pain: No Palpitations: No Edema: Bilateral (right greater than left) Muscle aches with walking: None Resp Respiratory: Negative for SOB with activity, SOB at rest, SOB orthopnea\SOB lying down or Cough GI GI: Negative nausea, vomiting, heartburn or vomiting blood/hematemesis : Negative for hematuria Musc Musc: Positive for muscle aches/ myalgia Neuro Neuro: Negative for weakness, headache(s), dizziness, near syncope, syncope, lightheadedness or orthostatic symptoms Edward Hematologic/Lymphatic: Negative for easy bleeding Endo Endo: Negative for fatigue Cardiology Exam Const Appearance: cooperative, no acute distress and well developed Orientation: alert, awake and oriented x3 Head Head: normocephalic and atraumatic Mouth: moist mucous membranes Eyes General: appearance normal, both eyes and all related structures Conjunctivae: conjunctivae normal Pupils: PERRL EOM: EOM intact bilaterally Neck Neck: normal visual inspection, no lymphadenopathy and no JVD Carotids: Negative bruit Neck Mass: Negative Neck mass Chest Chest inspection: normal inspection of the chest, symmetric chest movement and midline sternotomy incision Auscultation: Bilateral: Clear to Auscultation Cardio Palpation: normal PMI Rate: regular rate Rhythm: regular rhythm Heart sounds: S1 normal and S2 normal; negative rub, gallop or murmur GI GI: normal to inspection, soft, no hepatosplenomegaly and bowel sounds present; negative tender Neuro General: alert, awake, oriented x3, CN's II-XI intact bilaterally and moves all extremities Extremities Pulses: Normal: Right Posterior Tibial Pulse, Left Posterior Tibial Pulse, Right Radial Pulse, Left Radial Pulse Lower Extremity Edema: +1: Left, +2: Right (up to knee) Psych Psychological: normal affect Supplemental Info Echocardiogram from July 2017 showed estimated ejection fraction 45%, mildly dilated left ventricle, mild concentric LVH, mildly enlarged left atrium, mildly enlarged right atrium, mild diffuse mitral thickening, trivial mitral valve insufficiency, trivial tricuspid valve insufficiency, aortic sclerosis, no stenosis, trivial aortic valve insufficiency, calcified aortic root, RVSP of 41 mmHg, and diastolic dysfunction. Heart catheterization from February 2017 showed elevated LVEDP DP, moderately to severely elevated right heart pressures, ejection fraction of 30%, and [place] multivessel coronary artery disease. Left main coronary artery had 25% stenosis, mid LAD had 50-75% stenosis, ostial circumflex had 85% stenosis, OM1 had 95% stenosis, and right PDA was subtotally occluded. He was referred to tertiary care center for bypass surgery. Assessment AND Plan 1. Lower extremity edema R60.0 Plan - CHELSI Riggins Patient continues to complain of lower extremity edema. He does state that it is better in the morning and worsens throughout the day. Will obtain a BNP today. In the past patient was evaluated for a DVT on his right leg as his right leg always seems to be more edematous than his left leg. This was negative. Encouraged use of compression stocking and leg elevation. Will refer patient to vascular, feel that his edema has to do with venous insufficiency. 2. Essential hypertension I10 Plan - CHELSI Riggins Blood pressure is well controlled on current medications, we do not recommend any changes at this time. 3. Atherosclerosis of [place] coronary artery of [place] heart without angina pectoris I25.10 S/P surgery with CARTY to LAD, SVG to OM system, and SVG to PDA in March 2017 at [facility]; Plan - CHELSI Riggins Stable, from a cardiac standpoint patient does not have any symptoms of angina. We recommend that they continue with current aggressive medical management and risk factor modification. 4. Cardiomyopathy, unspecified type I42.9 Plan - CHELSI Riggins Patient does complain of lower extremity edema however his weight has been stable. Will obtain a BNP to see if this is related to congestive heart failure as he does have an ejection fraction of 45%. He will continue with current aggressive medical management. Plan Detail Other Orders Orders: Referrals: Additional Comments - CHELSI Riggins The above patient was discussed with Dr. Chacon, he agrees with plan of care. Thank you for allowing us to participate in patient's plan of care, if you have any questions please do not hesitate to call. This note was generated using a voice recognition system and there may be incorrect words, spelling or punctuation errors that were not noted when reviewing the office note prior to saving. Follow Up 05/27/18 (cancel appt with PFM for 6 months) Coding Level of Care Code Off vis,est,level 4 Diagnoses Lower extremity edema R60.0 Essential hypertension I10 Hypertension type: essential hypertension Atherosclerosis of [place] coronary artery of [place] heart without angina pectoris I25.10 Cardiomyopathy, unspecified type I42.9 Cardiomyopathy type: unspecified Coding Level of Care Code Off vis,est,level 4 Diagnoses Lower extremity edema R60.0 Essential hypertension I10 Hypertension type: essential hypertension Atherosclerosis of [place] coronary artery of [place] heart without angina pectoris I25.10 Cardiomyopathy, unspecified type I42.9 Cardiomyopathy type: unspecified 05/28/18 1040 <Electronically signed by Florencia GAGNON> Date Florencia GAGNON 05/28/18 1643<Electronically signed by Lee Chacon MD> Cosigner Signature: Date (if applicable) Lee Chacon MD CC: Aditya Davis CBC W/DIFF, AUTOMATED Collected: 05/27/2018 Status: F Source: [place] 4:03 PM [facility] REPOSITORY TYPE CODE TESTS RESULT OUT OF RANGE REFERENCE UNITS LAB L100.1000 4.4-11.0 K/mm3 Normal WBC 5.5 LAB L100.1200 4.6-6.2 M/mm3 Low RBC 4.08 LAB L100.1300 13.0-16.5 g/dl Low HGB 11.4 LAB L100.1400 40-54 % Low HCT 36.0 LAB L100.1500 80-94 fL Normal MCV 88.2 LAB L100.1600 27.0-32.0 pg Normal MCH 27.9 LAB L100.1700 32-36 g/gl Low MCHC 31.7 LAB L100.1810 11.6-14.6 % Normal RDW CV 14.2 LAB L100.1820 35.1-43.9 fl High RDW SD 46.1 LAB L100.1900 150-450 K/mm3 Normal PLT 241 LAB L100.2000 6.2-12.0 fl Normal MPV 9.6 LAB L100.2100 47-70 % Normal NEUT% 69.1 LAB L100.2200 19-41 % Low LY% 16.2 LAB L100.2300 0-10 % High MONO% 11.3 LAB L100.2400 0-5 % Normal EO% 2.9 LAB L100.2500 0-1 % Normal BASO% 0.5 LAB L100.2550 0.0-0.9 % Normal IM GRAN % 0.000 Result Comment: IG% - Immature Granulocytes (promyelocytes, myelocytes and metamyelocytes) > 1% indicates that a LEFT SHIFT is Present. LAB L100.2620 2.0-7.7 X10 3/uL Normal Absolute Neut 3.8 LAB L100.2720 0.83-4.51 X10 3/ul Normal Absolute Lymph 0.89 Performed By: #### L100.0100 #### [facility] [address] [place], [address] BASIC METABOLIC Collected: 05/27/2018 Status: F Source: [place] [facility] ([facility]) 4:03 PM [facility] REPOSITORY TYPE CODE TESTS RESULT OUT OF RANGE REFERENCE UNITS LAB L501.0100 74-106 mg/dL High GLU 140 Result Comment: Fasting Glucose result greater than or equal to 126 mg/dL suggests DIABETES MELLITUS per A.D.A. criteria. Please note revised GLUCOSE reference range effective 2017. LAB L501.1000 7-18 mg/dL High BUN 73 LAB L501.1100 0.70-1.30 mg/dL High CREAT,SERUM 1.48 Result Comment: The validity of the calculated GFR AND GFRAA in patients over 70 years has not been determined. Clinical correlation is essential. LAB L501.1110 >60 mL/min Low EST GFR 51 Result Comment: Non- GFR Calc LAB L501.1115 >60 mL/min Normal EST GFR - AA 62 Result Comment: GFR Calc LAB L501.1300 10-20 RATIO High BUN/CRE 49.3 LAB L501.2200 8.5-10.1 mg/dL CA Normal 8.7 LAB L501.5300 136-145 mmol/L NA Normal 140 LAB L501.5600 3.5-5.1 mmol/L K Normal 4.9 LAB L501.5900 98-107 mmol/L CL Normal 104 LAB L501.6100 21.0-32.0 mmol/L Normal CO2 27.0 LAB L501.6200 5-15 Normal GAP 9 Performed By: #### L500.2500, L501.5200 #### [facility] [address] [place], [address] MAGNESIUM Collected: 05/27/2018 Status: F Source: [place] 4:03 PM [facility] REPOSITORY TYPE CODE TESTS RESULT OUT OF RANGE REFERENCE UNITS LAB L501.5200 1.6-2.6 mg/dL Normal MG 2.5 Performed By: #### L500.2500, L501.5200 #### [facility] [address] [place], [address] BNP,B-TYPE NATRIURETIC Collected: 05/27/2018 Status: F Source: [place] 4:03 PM [facility] REPOSITORY TYPE CODE TESTS RESULT OUT OF RANGE REFERENCE UNITS LAB L503.6620 0-100 pg/mL High B-TYPE 1265.9 [place] PEP Performed By: #### L503.6620 #### [facility] [address] [place], [address] XR FINGER 3RD DIGIT Observed: 05/20/2018 Status: F Source: [facility] 3 VIEWS RIGHT 9:45 AM [facility] REPOSITORY ORIGINAL XR FINGER 3RD DIGIT 3 VIEWS RIGHT CLINICAL STATEMENT: crush injury, laceration. COMPARISON: None FINDINGS: Prominent soft tissue swelling is present distally. No fracture, dislocation or foreign body seen. Interpreted By: Jensen Munson MD Preliminary Report By: Jensen Munson MD Electronically Signed By: Jensen Munson MD Dictated Date: 05/20/2018 10:05:40 AM Prelim Date: 05/20/2018 10:05:40 AM Sign Date: 05/20/2018 10:06:01 AM PROGRESS Observed: 05/03/2018 Status: COMPLETED Source: [place] 4:10 PM [facility] REPOSITORY HNO ID: [id number] Author: Blade Gould Service: (none) Author Type: Physician Type: Progress Notes Filed: 05/03/2018 5:08 PM Note Text: Patient presents with: Rash: x 1 week rash on back HPI: Patient presents today for office visit for follow up. DERM:Patient presents with rash. Duration:1 week Location: back. Changes in soaps or detergents: No. New medications or foods: No. Exposure to others with rash: No. Previous treatments: using calamine which helps. Itches quite a bit. His hip is feeling better since his hemeglobin is up. Seeing Dr. Gary. He never did see nephrology or urology. He had incomplete emptying of his bladder and it had debris. No infections. Cardiology has been adjusting meds. I told him we could hold on nephrology but would still see urology. No chest pain or shortness of breath No edema. Checking sugars. No polyuria or polydipsia. Sugars have been in the 130's MEDICATIONS: Current Outpatient Prescriptions: doxazosin (CARDURA) 4 mg tablet Take 4 mg by mouth twice daily. hydrALAZINE (APRESOLINE) 25 mg tablet Take 25 mg by mouth three times daily. furosemide (LASIX) 40 mg tablet Take 1 tablet by mouth once daily. carvedilol (COREG) 25 mg tablet Take 25 mg by mouth twice daily with meals. metOLAzone (ZAROXOLYN) 2.5 mg tablet Take 2.5 mg by mouth every other day. gabapentin (NEURONTIN) 300 mg capsule Take 1 capsule by mouth twice daily. HYDROcodone-acetaminophen (NORCO) 5-325 mg per tablet Take 1 tablet by mouth every 8 hours as needed. MULTIVITAMIN/IRON/FOLIC ACID (DAILY MULTI ORAL) Take 2 Each by mouth once daily. lisinopril (ZESTRIL) 40 mg tablet Take 1 tablet by mouth once daily. Tadalafil (CIALIS) 20 mg tab(s) Take 1 tablet by mouth as needed. pravastatin (PRAVACHOL) 80 mg tablet Take 80 mg by mouth once daily. aspirin, enteric coated (ASPIR-81) 81 mg EC tablet Take 1 tablet by mouth once daily. (Patient taking differently: Take 162 mg by mouth once daily.) latanoprost (XALATAN) 0.005 % ophthalmic solution Use 1 Drop in both eyes daily at bedtime. into affected eye(s). ferrous sulfate (IRON) 325 mg (65 mg iron) tablet Take 1 tablet by mouth twice daily. (Patient not taking: Reported on 05/03/2018 ) insulin detemir U-100 (LEVEMIR FLEXTOUCH U-100 INSULN) 100 unit/mL (3 mL) inpn injection Inject 20 Units subcutaneously daily at bedtime. (Patient taking differently: Inject 18 Units subcutaneously daily at bedtime. ) No current facility-administered medications for this visit. ALLERGIES: ALLERGIES Allergen Reactions - Lyrica [Pregabalin] Swelling PAST MEDICAL HISTORY Diagnosis Date - Ankylosing spondylitis ([facility] - CAD (coronary artery disease) - Cellulitis - Constipation - Diabetes ([facility]) - Gout - Hx of fracture multiple bones - NSTEMI (non-ST elevated myocardial infarction) ([facility]) 03/12/2017 [facility] admit - Osteoarthritis PAST SURGICAL HISTORY Procedure Laterality Date - CORONARY ARTERY BYPASS GRAFT 04/12/2017 x 3 - HIP SURGERY HX Right pin - KNEE ARTHROSCOPY Left x2 - KNEE SURGERY HX Right TKR, right, arthoscopy x3 - PAST SURGICAL HISTORY OF 09/07/2017 08/15/17 fx radius in 2 places; plate and screws.Plate and screws 09/07/17 [facility] - TOE SURGERY HX Right FAMILY HISTORY Problem Relation Age of Onset - Arthritis Mother - Coronary Artery Disease Mother - Diabetes Mother - Heart Mother - Hypertension Mother - Alcohol/Drug Father - Arthritis Father - Heart Father - Hypertension Father Social History Marital status: Spouse name: Yun Years of education: Number of children: 2 Social History Main Topics Smoking status: Never Smoker Smokeless tobacco: Former User Types: Chew Quit date: 04/17/2017 Alcohol use: No Comment: seldom Drug use: No Sexual activity: Yes Partners with: Female Other Topics Concern Service No Blood Transfusions No Caffeine Concern No Comment:None Occupational Exposure No Hobby Hazards No Sleep Concern No Stress Concern No Weight Concern Yes Special Diet No Back Care No Exercise No Comment:No formal Bike Helmet No Seat Belt Yes Self-Exams No Reviewed current medications, allergies, past medical history, surgical history, family history and social history today. REVIEW OF SYSTEMS RESPIRATORY: Negative for cough, hemoptysis, wheezing, COPD, dyspnea or shortness of breath CARDIOVASCULAR: Negative for chest pain, leg swelling, hypertension, CHF or palpitations All other reviewed and negative other than HPI. HEALTH MAINTENANCE: Reviewed health maintenance issues today and recommended the following in detail. BP CONTROLLED (<130/80) due on 11/06/1975 DTAP,TDAP,TD(1 - Tdap) due on 1976 HEPATITIS C SCREENING due on 2001 DIABETIC FOOT EXAM due on 08/14/2017 DILATED RETINAL EXAM just had two months ago HBA1C due on 05/03/2018 INFLUENZA-will get at work VITALS: BP 138/72 (BP Site: Left Arm, BP Position: Sitting, BP Cuff Size: Large Adult) Pulse 68 Temp 36.5 ?C (97.7 ?F) (Right Tympanic) Resp 16 Wt 81.2 kg (179 lb) BMI 26.66 kg/m? Last 4 Encounter Wt Readings: Date: Wt: 05/03/2018 81.2 kg (179 lb) 04/17/2018 79.2 kg (174 lb 8 oz) 04/04/2018 79.6 kg (175 lb 8 oz) 03/28/2018 82.1 kg (181 lb) PHYSICAL EXAMINATION: General appearance: Well appearing, alert, in no acute distress, well-hydrated, well nourished. Skin: diffuse papular rash on middle of back. Some linear areas on abdomen. Head: Normocephalic, no masses, lesions, tenderness or abnormalities Neck: Supple, no adenopathy; thyroid symmetric, normal size, no bruits Lungs: Lungs clear to auscultation. No wheezing, rhonchi, rales Heart: RRR without murmur, gallop, or rubs. No ectopy Abdomen: Normal abdominal exam, Abdomen soft, non-tender. Bowel sounds normal. No masses, organomegaly Extremities: No deformities, edema, skin discoloration, clubbing or cyanosis. Good capillary refill. Musculoskeletal: No joint swelling, deformity, or tenderness Feet:Shoes and socks removed, normal distal pulses, sensitive to 10 gm monofilament and dark area on right foot, ? Wart vs callus. Was apparently digging at it on his own. Given his poor recent sugar control, will ask podiatry to check ASSESSMENT/PLAN: 1. Hypertension, essential - ICD9: 401.9, ICD10: I10 (primary diagnosis) -continue current meds. Call if any issues. - BASIC METABOLIC PNL 2. 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 3. Uncontrolled type 2 diabetes mellitus without complication, with long-term current use of insulin ([facility]) - ICD9: 250.02, V58.67, ICD10: E11.65, Z79.4 poorly controlled - Check labs 4. Anemia of chronic renal failure, stage 3 (moderate) ([facility]) - ICD9: 285.21, 585.3, ICD10: N18.3, D63.1 - Follow labs. - HGB A1C 5. Incomplete bladder emptying - ICD9: 788.21, ICD10: R33.9 - see urology. 6. Lesion of skin of foot - ICD9: 709.9, ICD10: L98.9 - see podiatry - CONSULT TO PODIATRY 7. Dermatitis - ICD9: 692.9, ICD10: L30.9 - Topical steriod tx with Rx for steriod cream/ointment- see orders - discussed skin care of rash - follow up if symptoms persist or worsen. Blade Gould MD CNOV Observed: 05/03/2018 Status: COMPLETED Source: [place] 3:20 PM [facility] REPOSITORY Office Visit (FAMPWS) MAURI QUINONES ([id number]) 1955 M Date Time Provider Department 05/03/18 3:20 PM [facility] During your visit today, we recorded the following information about you: Temperature Pulse Respiration Blood pressure 97.7 degrees 68/minute 16/minute 138/72 Weight 81.2 kg Blade Gould MD 05/03/2018 5:08 PM Signed Patient presents with: Rash: x 1 week rash on back HPI: Patient presents today for office visit for follow up. DERM:Patient presents with rash. Duration:1 week Location: back. Changes in soaps or detergents: No. New medications or foods: No. Exposure to others with rash: No. Previous treatments: using calamine which helps. Itches quite a bit. His hip is feeling better since his hemeglobin is up. Seeing Dr. Gary. He never did see nephrology or urology. He had incomplete emptying of his bladder and it had debris. No infections. Cardiology has been adjusting meds. I told him we could hold on nephrology but would still see urology. No chest pain or shortness of breath No edema. Checking sugars. No polyuria or polydipsia. Sugars have been in the 130's MEDICATIONS: Current Outpatient Prescriptions: doxazosin (CARDURA) 4 mg tablet Take 4 mg by mouth twice daily. hydrALAZINE (APRESOLINE) 25 mg tablet Take 25 mg by mouth three times daily. furosemide (LASIX) 40 mg tablet Take 1 tablet by mouth once daily. carvedilol (COREG) 25 mg tablet Take 25 mg by mouth twice daily with meals. metOLAzone (ZAROXOLYN) 2.5 mg tablet Take 2.5 mg by mouth every other day. gabapentin (NEURONTIN) 300 mg capsule Take 1 capsule by mouth twice daily. HYDROcodone-acetaminophen (NORCO) 5-325 mg per tablet Take 1 tablet by mouth every 8 hours as needed. MULTIVITAMIN/IRON/FOLIC ACID (DAILY MULTI ORAL) Take 2 Each by mouth once daily. lisinopril (ZESTRIL) 40 mg tablet Take 1 tablet by mouth once daily. Tadalafil (CIALIS) 20 mg tab(s) Take 1 tablet by mouth as needed. pravastatin (PRAVACHOL) 80 mg tablet Take 80 mg by mouth once daily. aspirin, enteric coated (ASPIR-81) 81 mg EC tablet Take 1 tablet by mouth once daily. (Patient taking differently: Take 162 mg by mouth once daily.) latanoprost (XALATAN) 0.005 % ophthalmic solution Use 1 Drop in both eyes daily at bedtime. into affected eye(s). ferrous sulfate (IRON) 325 mg (65 mg iron) tablet Take 1 tablet by mouth twice daily. (Patient not taking: Reported on 05/03/2018 ) insulin detemir U-100 (LEVEMIR FLEXTOUCH U-100 INSULN) 100 unit/mL (3 mL) inpn injection Inject 20 Units subcutaneously daily at bedtime. (Patient taking differently: Inject 18 Units subcutaneously daily at bedtime. ) No current facility-administered medications for this visit. ALLERGIES: ALLERGIES Allergen Reactions - Lyrica [Pregabalin] Swelling PAST MEDICAL HISTORY Diagnosis Date - Ankylosing spondylitis (HCC) - CAD (coronary artery disease) - Cellulitis - Constipation - Diabetes ([facility]) - Gout - Hx of fracture multiple bones - NSTEMI (non-ST elevated myocardial infarction) ([facility]) 03/12/2017 [facility] admit - Osteoarthritis PAST SURGICAL HISTORY Procedure Laterality Date - CORONARY ARTERY BYPASS GRAFT 04/12/2017 x 3 - HIP SURGERY HX Right pin - KNEE ARTHROSCOPY Left x2 - KNEE SURGERY HX Right TKR, right, arthoscopy x3 - PAST SURGICAL HISTORY OF 09/07/2017 08/15/17 fx radius in 2 places; plate and screws.Plate and screws 09/07/17 [facility] - TOE SURGERY HX Right FAMILY HISTORY Problem Relation Age of Onset - Arthritis Mother - Coronary Artery Disease Mother - Diabetes Mother - Heart Mother - Hypertension Mother - Alcohol/Drug Father - Arthritis Father - Heart Father - Hypertension Father Social History Marital status: Spouse name: Yun Years of education: Number of children: 2 Social History Main Topics Smoking status: Never Smoker Smokeless tobacco: Former User Types: Chew Quit date: 04/17/2017 Alcohol use: No Comment: seldom Drug use: No Sexual activity: Yes Partners with: Female Other Topics Concern Service No Blood Transfusions No Caffeine Concern No Comment:None Occupational Exposure No Hobby Hazards No Sleep Concern No Stress Concern No Weight Concern Yes Special Diet No Back Care No Exercise No Comment:No formal Bike Helmet No Seat Belt Yes Self-Exams No Reviewed current medications, allergies, past medical history, surgical history, family history and social history today. REVIEW OF SYSTEMS RESPIRATORY: Negative for cough, hemoptysis, wheezing, COPD, dyspnea or shortness of breath CARDIOVASCULAR: Negative for chest pain, leg swelling, hypertension, CHF or palpitations All other reviewed and negative other than HPI. HEALTH MAINTENANCE: Reviewed health maintenance issues today and recommended the following in detail. BP CONTROLLED (<130/80) due on 11/06/1975 DTAP,TDAP,TD(1 - Tdap) due on 1976 HEPATITIS C SCREENING due on 2001 DIABETIC FOOT EXAM due on 08/14/2017 DILATED RETINAL EXAM just had two months ago HBA1C due on 05/03/2018 INFLUENZA-will get at work VITALS: BP 138/72 (BP Site: Left Arm, BP Position: Sitting, BP Cuff Size: Large Adult) Pulse 68 Temp 36.5 ?C (97.7 ?F) (Right Tympanic) Resp 16 Wt 81.2 kg (179 lb) BMI 26.66 kg/m? Last 4 Encounter Wt Readings: Date: Wt: 05/03/2018 81.2 kg (179 lb) 04/17/2018 79.2 kg (174 lb 8 oz) 04/04/2018 79.6 kg (175 lb 8 oz) 03/28/2018 82.1 kg (181 lb) PHYSICAL EXAMINATION: General appearance: Well appearing, alert, in no acute distress, well-hydrated, well nourished. Skin: diffuse papular rash on middle of back. Some linear areas on abdomen. Head: Normocephalic, no masses, lesions, tenderness or abnormalities Neck: Supple, no adenopathy; thyroid symmetric, normal size, no bruits Lungs: Lungs clear to auscultation. No wheezing, rhonchi, rales Heart: RRR without murmur, gallop, or rubs. No ectopy Abdomen: Normal abdominal exam, Abdomen soft, non-tender. Bowel sounds normal. No masses, organomegaly Extremities: No deformities, edema, skin discoloration, clubbing or cyanosis. Good capillary refill. Musculoskeletal: No joint swelling, deformity, or tenderness Feet:Shoes and socks removed, normal distal pulses, sensitive to 10 gm monofilament and dark area on right foot, ? Wart vs callus. Was apparently digging at it on his own. Given his poor recent sugar control, will ask podiatry to check ASSESSMENT/PLAN: 1. Hypertension, essential - ICD9: 401.9, ICD10: I10 (primary diagnosis) -continue current meds. Call if any issues. - BASIC METABOLIC PNL 2. 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 3. Uncontrolled type 2 diabetes mellitus without complication, with long-term current use of insulin ([facility]CC) - ICD9: 250.02, V58.67, ICD10: E11.65, Z79.4 poorly controlled - Check labs 4. Anemia of chronic renal failure, stage 3 (moderate) ([facility]CC) - ICD9: 285.21, 585.3, ICD10: N18.3, D63.1 - Follow labs. - HGB A1C 5. Incomplete bladder emptying - ICD9: 788.21, ICD10: R33.9 - see urology. 6. Lesion of skin of foot - ICD9: 709.9, ICD10: L98.9 - see podiatry - CONSULT TO PODIATRY 7. Dermatitis - ICD9: 692.9, ICD10: L30.9 - Topical steriod tx with Rx for steriod cream/ointment- see orders - discussed skin care of rash - follow up if symptoms persist or worsen. Blade Gould MD Referring Provider: SELF [[id number]] Allergies As of Date: 05/03/2018 Noted Allergy Reaction LYRICA (PREGABALIN) 03/23/2017 7 - Swelling Date Reviewed: 05/03/2018 Reviewed by: Juany Rizo LPN - Fully Assessed Reason for Visit: Rash [1087] Cmt: x 1 week rash on back Primary Visit Diagnosis:Hypertension, essential [I10] Other Visit Diagnoses:Mononeuropathy due to underlying disease [G59] Uncontrolled type 2 diabetes mellitus without complication, with long-term current use of insulin (HCC) [E11.65, Z79.4] Anemia of chronic renal failure, stage 3 (moderate) (HCC) [N18.3, D63.1] Incomplete bladder emptying [R33.9] Lesion of skin of foot [L98.9] Dermatitis [L30.9] Order(s):HGB A1C [BOMZI0N] Order #: [id number] FUTURE BASIC METABOLIC PNL [SQBMP] Order #: [id number] FUTURE mometasone (ELOCON) 0.1 % creamApply 1 application to affected area once daily. Do not use more than two weeksDisp: 45 gRfl: 0 CONSULT TO PODIATRY [9034] Order #: [id number]: 1 Prescriptions as of 05/03/2018 Sig: DOXAZOSIN 4 MG TABLET Take 4 mg by mouth twice jagdeep* HYDRALAZINE 25 MG TABLET Take 25 mg by mouth three solitario* FUROSEMIDE 40 MG TABLET Take 1 tablet by mouth once d* CARVEDILOL 25 MG TABLET Take 25 mg by mouth twice rafita* METOLAZONE 2.5 MG TABLET Take 2.5 mg by mouth every ot* GABAPENTIN 300 MG CAPSULE Take 1 capsule by mouth twice* HYDROCODONE 5 MG-ACETAMINOPHE* Take 1 tablet by mouth every * DAILY MULTI ORAL Take 2 Each by mouth once rafita* LISINOPRIL 40 MG TABLET Take 1 tablet by mouth once d* TADALAFIL 20 MG TABLET Take 1 tablet by mouth as nee* PRAVASTATIN 80 MG TABLET Take 80 mg by mouth once jagdeep* ASPIRIN 81 MG TABLET,DELAYED * Take 1 tablet by mouth once d* Patient taking differently: Take 162 mg by mouth once rafita* LATANOPROST 0.005 % EYE DROPS Use 1 Drop in both eyes daily* MOMETASONE 0.1 % TOPICAL CREAM Apply 1 application to affect* FERROUS SULFATE 325 MG (65 MG* Take 1 tablet by mouth twice * Patient not taking: Reported on 05/03/2018 INSULIN DETEMIR (U-100) 100 U* Inject 20 Units subcutaneousl* Patient taking differently: Inject 18 Units subcutaneousl* Problem List As Of Date 05/03/2018 Noted Resolved Uncontrolled type 2 diabetes mellitus without c*INVALID FOR* More... 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 Hypertension, essential [I10] INVALID FOR* Lower leg edema [R60.0] INVALID FOR* More... Chronic left hip pain [M25.552, G89.29] INVALID FOR* Anemia of chronic renal failure, stage 3 (moder*INVALID FOR* Prescriptions ordered this encounter Disp Refills Start End MOMETASONE 0.1 % TOPICAL CREAM 45 g 0 05/03/2018 Route: TOPICAL Sig: Apply 1 application to affected area once daily. Do not use more than two weeks Disposition: Return in about 3 months (around 08/02/2018). Follow-up and Disposition History Recorded Letter Text [facility] [address] [place] [id number] Mauri Quinones [address] [facility] [address] Clinic #: [id number] 05/03/2018 Off work in am due to illness. Sincerely: Blade Gould MD Encounter Status:Closed by BLADE GOULD MD on 05/03/18 BASIC METABOLIC Collected: 04/27/2018 Status: F Source: [facility] ([facility]) 9:39 AM [facility] REPOSITORY TYPE CODE TESTS RESULT OUT OF RANGE REFERENCE UNITS LAB L501.0100 74-106 mg/dL Normal GLU 98 Result Comment: Please note revised GLUCOSE reference range effective 2017. LAB L501.1000 7-18 mg/dL High BUN 73 LAB L501.1100 0.70-1.30 mg/dL High CREAT,SERUM 1.51 Result Comment: The validity of the calculated GFR AND GFRAA in patients over 70 years has not been determined. Clinical correlation is essential. LAB L501.1110 >60 mL/min Low EST GFR 50 Result Comment: Non- GFR Calc LAB L501.1115 >60 mL/min Normal EST GFR - AA 61 Result Comment: GFR Calc LAB L501.1300 10-20 RATIO High BUN/CRE 48.3 LAB L501.2200 8.5-10.1 mg/dL Low CA 8.4 LAB L501.5300 136-145 mmol/L NA Normal 140 LAB L501.5600 3.5-5.1 mmol/L K Normal 4.8 LAB L501.5900 98-107 mmol/L High CL 108 LAB L501.6100 21.0-32.0 mmol/L Normal CO2 24.0 LAB L501.6200 5-15 Normal GAP 8 Performed By: #### L500.2500 #### [facility] [address] [place], [address] PROGRESS Observed: 04/17/2018 Status: COMPLETED Source: [place] 4:35 PM [facility] REPOSITORY HNO ID: [id number] Author: Nic Gary Service: (none) Author Type: Physician Type: Progress Notes Filed: 04/21/2018 8:29 AM Note Text: PATIENT NAME: Mauri Quinones. CLINIC NO: [id number]. ATTENDING PHYSICIAN: Nic Gary MD. DATE OF SERVICE: . ? DIAGNOSIS: chronic anemia ? HPI:this is a 62-year-old gentleman with history of anemia chronic disease secondary to ankylosing spondylitis, diabetes mellitus, hypertension, Stage 3, chronic renal failure. patient was seen by orthopedic surgery at [facility] recently for evaluation of a left total hip replacement surgery. ? Patient has chronic anemia, and he was given IV iron x 1 on February 11 and possibly starting on Procrit injection before his total hip replacement surgery. However, patient did not start Procrit injection because of hypertension. He was seen by Dr. Gould for his anemia last month. His initial evaluation was consistent with anemia of chronic disease.. Patient had never received a blood transfusion for his anemia. He has history of ischemic cardiomyopathy and had coronary artery bypass surgery last year for congestive heart failure. He is not taking iron at this time for anemia. ? Except for fatigue, the patient has no shortness of breath, dyspnea exertion or increased edema. No palpitation, dizziness or lightheadedness. No cold intolerance. He has no change in bowel habit or change in weight. No epigastric pain or abdominal discomfort. he denies any blood per rectum or melena. No previous GI evaluation for anemia. His most recent Hemoccult stool was negative. interim history: Patient continue iron and started Aranesp injection for anemia prior to his surgery. At this time, he has not decided whether to proceed with a total hip replacement surgery although his anemia has improved. He has no shortness of breath but has fatigue probably secondary to pain and waking up 3 o'clock in the morning for work. All medications AND allergies updated and reviewed by me. REVIEW OF SYSTEMS: ? CONSTITUTIONAL: No fevers, chills, nightsweats, unintended weight loss HEENT: Denies frequent or severe heaches, nasal congestion/sinus symptoms, problematic allergy problems. EYES: No diplopia or blurry vision. CARDIOVASCULAR: No chest pain, dyspnea, palpitations, orthopnea, PND, ankle edema. PULM: No dyspnea, unexplained cough. GI: No dysphagia/odynophagia, problematic reflux, constipation, diarrhea, changes in stool habits, hematochezia, melena. : No new urinary complaints, including dysuria, gross hematuria or pyuria. NEURO: No new balance problems, peripheral weakness/paresthesias or numbness of concern. MUSC-SKEL: No new joint pain, swelling, or erythema. PSY: No concerns regarding depression, anxiety or panic. INTEGUMENTARY: No new skin changes (rash, new or changing mole, new growth) ? ? PHYSICAL EXAMINATION: 62-year-old well-nourished well-developed gentleman appearing distress BP 141/70 Pulse 52 Temp (Src) 98.4 (Temporal Artery) Wt 174 lb 8 oz (79.2kg) HEENT: Head is normocephalic, atraumatic. Sclerae white, conjunctivae pink. PEERL. EOMs are intact. Oropharynx is benign.complexion pale but no excessive pallor LYMPHATICS: There is no palpable adenopathy in the neck, supraclavicular region, axillae, or groin. LUNGS: Lungs are clear to percussion and auscultation. HEART: Heart is normal without murmurs, gallops, or rubs. ABDOMEN: Soft and nontender without organomegaly. No masses can be palpated. EXTREMITIES: Are without edema. NEUROLOGIC: Exam is physiologic ? LABORATORY DATA: Component Latest Ref Rng AND Units 04/17/2018 WBC, [place] 3.70 - 11.00 k/uL 6.56 RBC, [place] 4.20 - 6.00 m/uL 4.69 Hemoglobin, [place] 13.0 - 17.0 g/dL 13.6 Hematocrit, [place] 39.0 - 51.0 % 42.0 MCV, [place] 80.0 - 100.0 fL 89.6 MCH, [place] 26.0 - 34.0 pg 29.0 MCHC, [place] 30.5 - 36.0 g/dL 32.4 RDW, [place] 11.5 - 15.0 % 15.0 Platelet Cnt, [place] 150 - 400 k/uL 197 MPV, [place] 9.0 - 12.7 fL 9.1 Absol Gran Count 1.45 - 7.50 k/uL 4.42 Component Latest Ref Rng AND Units 04/17/2018 Iron 41 - 186 ug/dL 77 TIBC 232 - 386 ug/dL 312 Transferrin Saturation 15 - 57 % 25 Ferritin 30.3 - 565.7 ng/mL 142.0 ASSESSMENT: 62-year-old with anemia of chronic disease. Other than mild fatigue probably not related to anemia, the patient is asymptomatic. Awaiting on decision with total hip replacement surgery of his right hip. No contraindication because his anemia has resolved. ? PLAN: - I recommend that he continue with iron if he's planning to have surgery soon with anticipated blood loss -Otherwise no further treatment is needed for anemia,and follow up with primary care physician for anemia of chronic disease. Nic Gary MD CNOVSP Observed: 04/17/2018 Status: COMPLETED Source: [place] 4:20 PM [facility] REPOSITORY Visit (SP) Office (PREETHI) QUINONESMAURI Miguel ([id number]) 1955 M Date Time Provider Department 04/17/18 4:20 PM NIC GARY During your visit today, we recorded the following information about you: Temperature Pulse Blood pressure Weight 98.4 degrees 52/minute 141/70 79.2 kg Nic Gary MD 04/21/2018 8:29 AM Signed PATIENT NAME: Mauri Delcid Quinonse. CLINIC NO: [id number]. ATTENDING PHYSICIAN: Nic Gary MD. DATE OF SERVICE: . ? DIAGNOSIS: chronic anemia ? HPI:this is a 62-year-old gentleman with history of anemia chronic disease secondary to ankylosing spondylitis, diabetes mellitus, hypertension, Stage 3, chronic renal failure. patient was seen by orthopedic surgery at [facility] recently for evaluation of a left total hip replacement surgery. ? Patient has chronic anemia, and he was given IV iron x 1 on February 11 and possibly starting on Procrit injection before his total hip replacement surgery. However, patient did not start Procrit injection because of hypertension. He was seen by Dr. Gould for his anemia last month. His initial evaluation was consistent with anemia of chronic disease.. Patient had never received a blood transfusion for his anemia. He has history of ischemic cardiomyopathy and had coronary artery bypass surgery last year for congestive heart failure. He is not taking iron at this time for anemia. ? Except for fatigue, the patient has no shortness of breath, dyspnea exertion or increased edema. No palpitation, dizziness or lightheadedness. No cold intolerance. He has no change in bowel habit or change in weight. No epigastric pain or abdominal discomfort. he denies any blood per rectum or melena. No previous GI evaluation for anemia. His most recent Hemoccult stool was negative. interim history: Patient continue iron and started Aranesp injection for anemia prior to his surgery. At this time, he has not decided whether to proceed with a total hip replacement surgery although his anemia has improved. He has no shortness of breath but has fatigue probably secondary to pain and waking up 3 o'clock in the morning for work. All medications AND allergies updated and reviewed by me. REVIEW OF SYSTEMS: ? CONSTITUTIONAL: No fevers, chills, nightsweats, unintended weight loss HEENT: Denies frequent or severe heaches, nasal congestion/sinus symptoms, problematic allergy problems. EYES: No diplopia or blurry vision. CARDIOVASCULAR: No chest pain, dyspnea, palpitations, orthopnea, PND, ankle edema. PULM: No dyspnea, unexplained cough. GI: No dysphagia/odynophagia, problematic reflux, constipation, diarrhea, changes in stool habits, hematochezia, melena. : No new urinary complaints, including dysuria, gross hematuria or pyuria. NEURO: No new balance problems, peripheral weakness/paresthesias or numbness of concern. MUSC-SKEL: No new joint pain, swelling, or erythema. PSY: No concerns regarding depression, anxiety or panic. INTEGUMENTARY: No new skin changes (rash, new or changing mole, new growth) ? ? PHYSICAL EXAMINATION: 62-year-old well-nourished well-developed gentleman appearing distress BP 141/70 Pulse 52 Temp (Src) 98.4 (Temporal Artery) Wt 174 lb 8 oz (79.2kg) HEENT: Head is normocephalic, atraumatic. Sclerae white, conjunctivae pink. PEERL. EOMs are intact. Oropharynx is benign.complexion pale but no excessive pallor LYMPHATICS: There is no palpable adenopathy in the neck, supraclavicular region, axillae, or groin. LUNGS: Lungs are clear to percussion and auscultation. HEART: Heart is normal without murmurs, gallops, or rubs. ABDOMEN: Soft and nontender without organomegaly. No masses can be palpated. EXTREMITIES: Are without edema. NEUROLOGIC: Exam is physiologic ? LABORATORY DATA: Component Latest Ref Rng AND Units 04/17/2018 WBC, [place] 3.70 - 11.00 k/uL 6.56 RBC, Gap 4.20 - 6.00 m/uL 4.69 Hemoglobin, [place] 13.0 - 17.0 g/dL 13.6 Hematocrit, [place] 39.0 - 51.0 % 42.0 MCV, [place] 80.0 - 100.0 fL 89.6 MCH, [place] 26.0 - 34.0 pg 29.0 MCHC, [place] 30.5 - 36.0 g/dL 32.4 RDW, [place] 11.5 - 15.0 % 15.0 Platelet Cnt, [place] 150 - 400 k/uL 197 MPV, [place] 9.0 - 12.7 fL 9.1 Absol Gran Count 1.45 - 7.50 k/uL 4.42 Component Latest Ref Rng AND Units 04/17/2018 Iron 41 - 186 ug/dL 77 TIBC 232 - 386 ug/dL 312 Transferrin Saturation 15 - 57 % 25 Ferritin 30.3 - 565.7 ng/mL 142.0 ASSESSMENT: 62-year-old with anemia of chronic disease. Other than mild fatigue probably not related to anemia, the patient is asymptomatic. Awaiting on decision with total hip replacement surgery of his right hip. No contraindication because his anemia has resolved. ? PLAN: - I recommend that he continue with iron if he's planning to have surgery soon with anticipated blood loss -Otherwise no further treatment is needed for anemia,and follow up with primary care physician for anemia of chronic disease. Nic Gary MD Referring Provider: NIC GARY [[id number]] Allergies As of Date: 04/17/2018 Noted Allergy Reaction LYRICA (PREGABALIN) 03/23/2017 7 - Swelling Date Reviewed: 04/17/2018 Reviewed by: Jocelin Brumfield - Fully Assessed Reason for Visit: Established Patient [175] Primary Visit Diagnosis:Anemia of chronic renal failure, stage 3 (moderate) ([facility]) [N18.3, D63.1] Other Visit Diagnoses:Uncontrolled type 2 diabetes mellitus without complication, with long-term current use of insulin (HCC) [E11.65, Z79.4] Arteriosclerotic heart disease (ASHD) [I25.10] Level of Service: EST PATIENT VISIT LEVEL 3 [90200] Disposition: Return if symptoms worsen or fail to improve. Follow-up and Disposition History Recorded Prescriptions as of 04/17/2018 Sig: FERROUS SULFATE 325 MG (65 MG* Take 1 tablet by mouth twice * DOXAZOSIN 4 MG TABLET Take 4 mg by mouth twice jagdeep* INSULIN DETEMIR (U-100) 100 U* Inject 20 Units subcutaneousl* Patient taking differently: Inject 18 Units subcutaneousl* HYDRALAZINE 25 MG TABLET Take 25 mg by mouth three solitario* FUROSEMIDE 40 MG TABLET Take 1 tablet by mouth once d* CARVEDILOL 25 MG TABLET Take 25 mg by mouth twice rafita* METOLAZONE 2.5 MG TABLET Take 2.5 mg by mouth every ot* GABAPENTIN 300 MG CAPSULE Take 1 capsule by mouth twice* HYDROCODONE 5 MG-ACETAMINOPHE* Take 1 tablet by mouth every * DAILY MULTI ORAL Take 2 Each by mouth once rafita* LISINOPRIL 40 MG TABLET Take 1 tablet by mouth once d* TADALAFIL 20 MG TABLET Take 1 tablet by mouth as nee* PRAVASTATIN 80 MG TABLET Take 80 mg by mouth once jagdeep* ASPIRIN 81 MG TABLET,DELAYED * Take 1 tablet by mouth once d* Patient taking differently: Take 162 mg by mouth once rafita* LATANOPROST 0.005 % EYE DROPS Use 1 Drop in both eyes daily* Problem List As Of Date 04/17/2018 Noted Resolved Uncontrolled type 2 diabetes mellitus without c*INVALID FOR* More... 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 Hypertension, essential [I10] INVALID FOR* Lower leg edema [R60.0] INVALID FOR* More... Chronic left hip pain [M25.552, G89.29] INVALID FOR* Anemia of chronic renal failure, stage 3 (moder*INVALID FOR* Encounter Status:Closed by NIC GARY MD on 04/21/18 LOBITO ABS GR + CBC Collected: 04/17/2018 Status: F Source: [place] 4:09 PM [facility] REPOSITORY TYPE CODE TESTS RESULT OUT OF REFERENCE UNITS RANGE LAB WWBC 3.70-11.00 k/uL [place] WBC 6.56 LAB WRBC 4.20-6.00 m/uL [place] RBC 4.69 LAB WHGB 13.0-17.0 g/dL [place] Hemoglobin 13.6 LAB WHCT 39.0-51.0 % [place] Hematocrit 42.0 LAB WMCV 80.0-100.0 fL [place] MCV 89.6 LAB WMCH 26.0-34.0 pg [place] MCH 29.0 LAB WMCHC 30.5-36.0 g/dL [place] MCHC 32.4 LAB WRDW 11.5-15.0 % [place] RDW 15.0 LAB WPLT 150-400 k/uL [place] Platelet Cnt 197 LAB WMPV 9.0-12.7 fL [place] MPV 9.1 Result Comment: Test performed at: [address], [place] [address]. LAB ABGRAN 1.45-7.50 k/uL Absol Gran 4.42 Count IRON AND TIBC Collected: 04/17/2018 Status: F Source: [place] 4:09 PM [facility] REPOSITORY TYPE CODE TESTS RESULT OUT OF REFERENCE UNITS RANGE LAB IRN 41-186 ug/dL Iron 77 LAB TIBC 232-386 ug/dL TIBC 312 LAB SAT 15-57 % Transferrin Saturatn 25 Performed By: #### IRON, FERR #### [facility] [address] [id number] FERRITIN Collected: 04/17/2018 Status: F Source: [place] 4:09 PM [facility] REPOSITORY TYPE CODE TESTS RESULT OUT OF REFERENCE UNITS RANGE LAB FERR 30.3-565.7 ng/mL Ferritin 142.0 Performed By: #### IRON, FERR #### [facility] [employer] [address] [place], [place] [address] PROGRESS Observed: 03/15/2018 Status: COMPLETED Source: [place] 8:28 AM [facility] REPOSITORY HNO ID: [id number] Author: Shaye Smith (Sw) Service: (none) Author Type: Search Strategist Type: Progress Notes Filed: 03/15/2018 8:28 AM Note Text: SOCIAL WORK FOLLOW UP NOTE: [facility] Date of service: March 15, 2018 Mauri Quinones is being seen for a follow up social work visit. Today's visit includes: patient not present TOPICS ADDRESSED: Patient showed up on First Time Treatment Report list. CHRISTOS reviewed patient's chart and found that patient is being seen for benign hematology/non-oncology services. No actions needed at this time. PLAN: Continue follow up as needed F/U APPOINTMENT: SAUD Moses CNSW Observed: 03/15/2018 Status: COMPLETED Source: [place] 12:00 AM [facility] REPOSITORY Social Work (PREETHI) QUINONESMAURI MEDELILN ([id number]) 1955 M Date Time Provider Department 03/15/18 SHAYE SMITH (CHRISTOS) PREETHI During your visit today, we recorded the following information about you: SAUD Olievr 03/15/2018 8:28 AM Signed SOCIAL WORK FOLLOW UP NOTE: [facility] Date of service: March 15, 2018 Mauri Quinones is being seen for a follow up social work visit. Today's visit includes: patient not present TOPICS ADDRESSED: Patient showed up on First Time Treatment Report list. CHRISTOS reviewed patient's chart and found that patient is being seen for benign hematology/non-oncology services. No actions needed at this time. PLAN: Continue follow up as needed F/U APPOINTMENT: SAUD Moses Allergies As of Date: 03/15/2018 Noted Allergy Reaction LYRICA (PREGABALIN) 03/23/2017 7 - Swelling Date Reviewed: 03/14/2018 Reviewed by: Abby Harrington (Erik) ERIK Beltran - Fully Assessed Reason for Visit: Social Work Services [507] Cmt: First Time Treatment Report Prescriptions as of 03/15/2018 Sig: FERROUS SULFATE 325 MG (65 MG* Take 1 tablet by mouth twice * DOXAZOSIN 4 MG TABLET Take 4 mg by mouth twice jagdeep* INSULIN DETEMIR (U-100) 100 U* Inject 20 Units subcutaneousl* Patient taking differently: Inject 17 Units subcutaneousl* HYDRALAZINE 25 MG TABLET Take 25 mg by mouth three solitario* FUROSEMIDE 40 MG TABLET Take 1 tablet by mouth once d* CARVEDILOL 25 MG TABLET Take 25 mg by mouth twice rafita* METOLAZONE 2.5 MG TABLET Take 2.5 mg by mouth once rafita* GABAPENTIN 300 MG CAPSULE Take 1 capsule by mouth twice* HYDROCODONE 5 MG-ACETAMINOPHE* Take 1 tablet by mouth every * DAILY MULTI ORAL Take 2 Each by mouth once rafita* LISINOPRIL 40 MG TABLET Take 1 tablet by mouth once d* TADALAFIL 20 MG TABLET Take 1 tablet by mouth as nee* PRAVASTATIN 80 MG TABLET Take 80 mg by mouth once jagdeep* ASPIRIN 81 MG TABLET,DELAYED * Take 1 tablet by mouth once d* Patient taking differently: Take 162 mg by mouth once rafita* LATANOPROST 0.005 % EYE DROPS Use 1 Drop in both eyes daily* Problem List As Of Date 03/15/2018 Noted Resolved Uncontrolled type 2 diabetes mellitus without c*INVALID FOR* More... 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 Hypertension, essential [I10] INVALID FOR* Lower leg edema [R60.0] INVALID FOR* More... Chronic left hip pain [M25.552, G89.29] INVALID FOR* Anemia of chronic renal failure, stage 3 (moder*INVALID FOR* Encounter Status:Closed by SHAYE SMITH on 03/15/18 LOBITO HEMATOCRIT Collected: 03/12/2018 Status: F Source: [place] 10:15 AM [facility] REPOSITORY TYPE CODE TESTS RESULT OUT OF REFERENCE UNITS RANGE LAB WHCT 39.0-51.0 % Low [place] Hematocrit 33.4 Result Comment: Test performed at: [facility] [place], [address], [address] [facility] [address] [place] [address]. [facility] HEMOGLOBIN Collected: 03/12/2018 Status: F Source: [place] 10:15 AM [facility] REPOSITORY TYPE CODE TESTS RESULT OUT OF REFERENCE UNITS RANGE LAB WHGB 13.0-17.0 g/dL Low [place] Hemoglobin 10.6 Result Comment: Test performed at: [facility], [address], [address] [facility] [address] [place] [address]. CNPN Observed: 03/05/2018 Status: COMPLETED Source: [place] 12:00 AM [facility] REPOSITORY Telephone (HEMAWS) MAURI QUINONES ([id number]) 1955 M Date Time Provider Department 03/05/18 NIC GARY During your visit today, we recorded the following information about you: Nic Gary MD 03/05/2018 8:32 AM Signed please notify patient that his repeat iron is normal. begin oral iron twice daily AND start Procrit and Aranesp before surgery if needed. please ask him discuss with orthopedic surgeon this week. Patient's request for medication is as follows Signed Prescriptions Disp Refills ferrous sulfate (IRON) 325 mg (65 mg iron) tablet 60 tablet 2 Sig: Take 1 tablet by mouth twice daily. Authorizing Provider: NIC GARY Order entered - please phone pharmacy and notify patient. MD Monica Camilo LPN 03/05/2018 9:03 AM Signed Message left on patient's voicemail for a return call. When patient calls, relay info below, document and close encounter. Monica Darling LPN 03/05/2018 12:14 PM Signed Spoke with patient, verbalized understanding. Will fax labs and this conversation to Dr. Jensen Peguero per patient request. Monica Darling LPN Allergies As of Date: 03/05/2018 Noted Allergy Reaction LYRICA (PREGABALIN) 03/23/2017 7 - Swelling Date Reviewed: 03/04/2018 Reviewed by: Abby Harrington (Erik) ERIK Beltran - Fully Assessed Reason for Visit: Results [95] Primary Visit Diagnosis:Uncontrolled type 2 diabetes mellitus without complication, with long-term current use of insulin ([facility]) [E11.65, Z79.4] Other Visit Diagnosis:Anemia of chronic renal failure, stage 3 (moderate) ([facility]) [N18.3, D63.1] Order(s):ferrous sulfate (IRON) 325 mg (65 mg iron) tabletTake 1 tablet by mouth twice daily.Disp: 60 tabletRfl: 2 Prescriptions as of 03/05/2018 Sig: FERROUS SULFATE 325 MG (65 MG* Take 1 tablet by mouth twice * DOXAZOSIN 4 MG TABLET Take 4 mg by mouth twice jagdeep* INSULIN DETEMIR (U-100) 100 U* Inject 20 Units subcutaneousl* Patient taking differently: Inject 17 Units subcutaneousl* HYDRALAZINE 25 MG TABLET Take 25 mg by mouth three solitario* FUROSEMIDE 40 MG TABLET Take 1 tablet by mouth once d* CARVEDILOL 25 MG TABLET Take 25 mg by mouth twice rafita* METOLAZONE 2.5 MG TABLET Take 2.5 mg by mouth once rafita* GABAPENTIN 300 MG CAPSULE Take 1 capsule by mouth twice* HYDROCODONE 5 MG-ACETAMINOPHE* Take 1 tablet by mouth every * DAILY MULTI ORAL Take 2 Each by mouth once rafita* LISINOPRIL 40 MG TABLET Take 1 tablet by mouth once d* TADALAFIL 20 MG TABLET Take 1 tablet by mouth as nee* PRAVASTATIN 80 MG TABLET Take 80 mg by mouth once jagdeep* ASPIRIN 81 MG TABLET,DELAYED * Take 1 tablet by mouth once d* Patient taking differently: Take 162 mg by mouth once rafita* LATANOPROST 0.005 % EYE DROPS Use 1 Drop in both eyes daily* Problem List As Of Date 03/05/2018 Noted Resolved Uncontrolled type 2 diabetes mellitus without c*INVALID FOR* More... 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 Hypertension, essential [I10] INVALID FOR* Lower leg edema [R60.0] INVALID FOR* More... Chronic left hip pain [M25.552, G89.29] INVALID FOR* Anemia of chronic renal failure, stage 3 (moder*INVALID FOR* Prescriptions ordered this encounter Disp Refills Start End FERROUS SULFATE 325 MG (65 MG IRON) * 60 t* 2 03/05/2018 Route: ORAL Sig: Take 1 tablet by mouth twice daily. Encounter Status:Closed by NIC GARY MD on 03/05/18 RETICULOCYTE Collected: 03/04/2018 Status: F Source: [place] 3:53 PM [facility] REPOSITORY TYPE CODE TESTS RESULT OUT OF REFERENCE UNITS RANGE LAB RETC 0.4-2.0 % Retic% 1.4 LAB ABRET 0.0180-0.1000 M/uL Abs Retic 0.053 Performed By: #### RETIC, IRON, FERR #### [facility] [employer] [address] [place] [address] IRON AND TIBC Collected: 03/04/2018 Status: F Source: [place] 3:53 PM [facility] REPOSITORY TYPE CODE TESTS RESULT OUT OF REFERENCE UNITS RANGE LAB IRN 41-186 ug/dL Iron 68 LAB TIBC 232-386 ug/dL TIBC 300 LAB SAT 15-57 % Transferrin Saturatn 23 Performed By: #### RETIC, IRON, FERR #### [facility] [employer] [address] [place], [place] [id number] FERRITIN Collected: 03/04/2018 Status: F Source: [place] 3:53 PM [facility] REPOSITORY TYPE CODE TESTS RESULT OUT OF REFERENCE UNITS RANGE LAB FERR 30.3-565.7 ng/mL Ferritin 283.0 Performed By: #### RETIC, IRON, FERR #### [facility] [employer] [address] [place] [address] PROGRESS Observed: 03/04/2018 Status: COMPLETED Source: [place] 3:42 PM [facility] REPOSITORY HNO ID: [id number] Author: Nic Gary Service: (none) Author Type: Physician Type: Progress Notes Filed: 03/05/2018 8:33 AM Note Text: Hematology and Medical Oncology PATIENT NAME: Mauri Quinones. CLINIC NO: [id number]. ATTENDING PHYSICIAN: Nic Gary MD. DATE OF SERVICE:03/04/2018. DIAGNOSIS: chronic anemia Consultation requested by Dr. Gould for an opinion regarding Chronic anemia. My final recommendations will be communicated back to the requesting physician by way of shared Medical record or letter to requesting physician via US mail. PERFORMANCE STATUS:80% HPI:this is a 62-year-old gentleman with history of anemia chronic disease secondary to ankylosing spondylitis, diabetes mellitus, hypertension, Stage 3, chronic renal failure. patient was seen by orthopedic surgery at [facility] recently for evaluation of a left total hip replacement surgery. Patient has chronic anemia, and he was given IV iron x 1 on February 11 and possibly starting on Procrit injection before his total hip replacement surgery. However, patient did not start Procrit injection because of hypertension. He was seen by Dr. Gould for his anemia last month. His initial evaluation was consistent with anemia of chronic disease.. Patient had never received a blood transfusion for his anemia. He has history of ischemic cardiomyopathy and had coronary artery bypass surgery last year for congestive heart failure. He is not taking iron at this time for anemia. Except for fatigue, the patient has no shortness of breath, dyspnea exertion or increased edema. No palpitation, dizziness or lightheadedness. No cold intolerance. He has no change in bowel habit or change in weight. No epigastric pain or abdominal discomfort. he denies any blood per rectum or melena. No previous GI evaluation for anemia. His most recent Hemoccult stool was negative. MEDICATIONS: Current Outpatient Prescriptions: doxazosin (CARDURA) 4 mg tablet Take 4 mg by mouth twice daily. insulin detemir U-100 (LEVEMIR FLEXTOUCH U-100 INSULN) 100 unit/mL (3 mL) inpn injection Inject 20 Units subcutaneously daily at bedtime. (Patient taking differently: Inject 17 Units subcutaneously daily at bedtime. ) hydrALAZINE (APRESOLINE) 25 mg tablet Take 25 mg by mouth three times daily. furosemide (LASIX) 40 mg tablet Take 1 tablet by mouth once daily. carvedilol (COREG) 25 mg tablet Take 25 mg by mouth twice daily with meals. metOLAzone (ZAROXOLYN) 2.5 mg tablet Take 2.5 mg by mouth once daily. gabapentin (NEURONTIN) 300 mg capsule Take 1 capsule by mouth twice daily. HYDROcodone-acetaminophen (NORCO) 5-325 mg per tablet Take 1 tablet by mouth every 8 hours as needed. MULTIVITAMIN/IRON/FOLIC ACID (DAILY MULTI ORAL) Take 2 Each by mouth once daily. lisinopril (ZESTRIL) 40 mg tablet Take 1 tablet by mouth once daily. Tadalafil (CIALIS) 20 mg tab(s) Take 1 tablet by mouth as needed. pravastatin (PRAVACHOL) 80 mg tablet Take 80 mg by mouth once daily. aspirin, enteric coated (ASPIR-81) 81 mg EC tablet Take 1 tablet by mouth once daily. (Patient taking differently: Take 162 mg by mouth once daily.) latanoprost (XALATAN) 0.005 % ophthalmic solution Use 1 Drop in both eyes daily at bedtime. into affected eye(s). No current facility-administered medications for this visit. . ALLERGIES: ALLERGIES Allergen Reactions - Lyrica [Pregabalin] Swelling . PAST MEDICAL HISTORY: PAST MEDICAL HISTORY Diagnosis Date - Ankylosing spondylitis ([facility]) - CAD (coronary artery disease) - Cellulitis - Constipation - Diabetes ([facility]) - Gout - Hx of fracture multiple bones - NSTEMI (non-ST elevated myocardial infarction) ([facility]) 03/12/2017 [facility] admit - Osteoarthritis . PAST SURGICAL HISTORY: PAST SURGICAL HISTORY Procedure Laterality Date - CORONARY ARTERY BYPASS GRAFT 04/12/2017 x 3 - HIP SURGERY HX Right pin - KNEE ARTHROSCOPY Left x2 - KNEE SURGERY HX Right TKR, right, arthoscopy x3 - PAST SURGICAL HISTORY OF 09/07/2017 08/15/17 fx radius in 2 places; plate and screws.Plate and screws 09/07/17 [facility] - TOE SURGERY HX Right . FAMILY HISTORY: FAMILY HISTORY Problem Relation Age of Onset - Arthritis Mother - Coronary Artery Disease Mother - Diabetes Mother - Heart Mother - Hypertension Mother - Alcohol/Drug Father - Arthritis Father - Heart Father - Hypertension Father . SOCIAL HISTORY:Social History Marital status: Spouse name: Yun Years of education: Number of children: 2 Social History Main Topics Smoking status: Never Smoker Smokeless tobacco: Former User Types: Chew Alcohol use: No Comment: seldom Drug use: No Sexual activity: Yes Partners with: Female Other Topics Concern Service No Blood Transfusions No Caffeine Concern No Comment:None Occupational Exposure No Hobby Hazards No Sleep Concern No Stress Concern No Weight Concern Yes Special Diet No Back Care No Exercise No Comment:No formal Bike Helmet No Seat Belt Yes Self-Exams No . REVIEW OF SYSTEMS: CONSTITUTIONAL: No fevers, chills, nightsweats, unintended weight loss HEENT: Denies frequent or severe heaches, nasal congestion/sinus symptoms, problematic allergy problems. EYES: No diplopia or blurry vision. CARDIOVASCULAR: No chest pain, dyspnea, palpitations, orthopnea, PND, ankle edema. PULM: No dyspnea, unexplained cough. GI: No dysphagia/odynophagia, problematic reflux, constipation, diarrhea, changes in stool habits, hematochezia, melena. : No new urinary complaints, including dysuria, gross hematuria or pyuria. NEURO: No new balance problems, peripheral weakness/paresthesias or numbness of concern. MUSC-SKEL: No new joint pain, swelling, or erythema. PSY: No concerns regarding depression, anxiety or panic. INTEGUMENTARY: No new skin changes (rash, new or changing mole, new growth) PHYSICAL EXAMINATION: 62-year-old well-nourished well-developed gentleman appearing distress BP 117/66 Pulse 54 Temp 97.9 Ht 5' 8.701[verified by Melanie Posada RN[ (1.75m) Wt 176 lb (79.8kg) BMI 26.22 kg/(m2). HEENT: Head is normocephalic, atraumatic. Sclerae white, conjunctivae pink. PEERL. EOMs are intact. Oropharynx is benign.complexion pale but no excessive pallor LYMPHATICS: There is no palpable adenopathy in the neck, supraclavicular region, axillae, or groin. LUNGS: Lungs are clear to percussion and auscultation. HEART: Heart is normal without murmurs, gallops, or rubs. ABDOMEN: Soft and nontender without organomegaly. No masses can be palpated. EXTREMITIES: Are without edema. NEUROLOGIC: Exam is physiologic LABORATORY DATA: Component Latest Ref Rng AND Units 03/04/2018 WBC, [place] 3.70 - 11.00 k/uL 6.03 RBC, [place] 4.20 - 6.00 m/uL 3.57 (L) Hemoglobin, Gap 13.0 - 17.0 g/dL 10.1 (L) Hematocrit, [place] 39.0 - 51.0 % 31.6 (L) MCV, [place] 80.0 - 100.0 fL 88.5 MCH, Gap 26.0 - 34.0 pg 28.3 MCHC, [place] 30.5 - 36.0 g/dL 32.0 RDW, [place] 11.5 - 15.0 % 14.8 Platelet Cnt, Gap 150 - 400 k/uL 263 MPV, [place] 9.0 - 12.7 fL 8.7 (L) Absol Gran Count 1.45 - 7.50 k/uL 4.11 peripheral blood smear: Normocytic / normochromic anemia; platelet is adequate without clumping or clotting. Normal differential. Component Latest Ref Rng AND Units 03/04/2018 Iron 41 - 186 ug/dL 68 TIBC 232 - 386 ug/dL 300 Transferrin Saturation 15 - 57 % 23 Retic % 0.4 - 2.0 % 1.4 Abs Retic 0.0180 - 0.1000 M/uL 0.053 Ferritin 30.3 - 565.7 ng/mL 283.0 Component Latest Ref Rng AND Units 02/20/2018 Vitamin B12 232 - 1,245 pg/mL 807 Folate >4.7 ng/mL >20.0 ASSESSMENT: 62-year-old with anemia of chronic disease and possible iron deficiency. Other than mild fatigue, the patient is asymptomatic PLAN: - repeat iron study, reticulocyte count, today and check stool for Hemoccult x 3 - If blood transfusion is likely with his total hip replacement surgery, then I would replace with IV iron if his iron saturation is less than 20%. - if his anemia is still significant after iron, then consider Procrit or Aranesp injection for treatment of anemia before his surgery. - However, if his surgery is not urgent, then consider oral iron replacement therapy first (ferrous sulfate 325mg 3 times daily) forearm deficiency and repeat CBC and iron studies in one month. - Consider Procrit or Aranesp injection for treatment of anemia before surgery if needed. - repeat CBC AND office visit in one month. The patient and family were allowed enough time to ask questions. All questions were answered to their satisfaction. Patient and family verbalized understanding of treatment anemia and agreed to proceed with iron replacement therapy. Nic Gary MD. ELECTRONICALLY SIGNED CNOVSP Observed: 03/04/2018 Status: COMPLETED Source: [place] 3:00 PM [facility] REPOSITORY Visit (SP) Office (PREETHI) MAURI QUINONES ([id number]) 1955 M Date Time Provider Department 03/04/18 3:00 PM NIC GARY During your visit today, we recorded the following information about you: Temperature Pulse Blood pressure Weight 97.9 degrees 54/minute 117/66 79.8 kg Height 1.745 m Abby Beltran LPN, LPN 03/04/2018 3:12 PM Signed New pt, discuss recent DX: Anemia ERIK Andrade MD 03/05/2018 8:33 AM Signed Hematology and Medical Oncology PATIENT NAME: Mauri Del Rosariontyre. CLINIC NO: [id number]. ATTENDING PHYSICIAN: Nic Gary MD. DATE OF SERVICE:03/04/2018. DIAGNOSIS: chronic anemia Consultation requested by Dr. Gould for an opinion regarding Chronic anemia. My final recommendations will be communicated back to the requesting physician by way of shared Medical record or letter to requesting physician via US mail. PERFORMANCE STATUS:80% HPI:this is a 62-year-old gentleman with history of anemia chronic disease secondary to ankylosing spondylitis, diabetes mellitus, hypertension, Stage 3, chronic renal failure. patient was seen by orthopedic surgery at [facility] recently for evaluation of a left total hip replacement surgery. Patient has chronic anemia, and he was given IV iron x 1 on February 11 and possibly starting on Procrit injection before his total hip replacement surgery. However, patient did not start Procrit injection because of hypertension. He was seen by Dr. Gould for his anemia last month. His initial evaluation was consistent with anemia of chronic disease.. Patient had never received a blood transfusion for his anemia. He has history of ischemic cardiomyopathy and had coronary artery bypass surgery last year for congestive heart failure. He is not taking iron at this time for anemia. Except for fatigue, the patient has no shortness of breath, dyspnea exertion or increased edema. No palpitation, dizziness or lightheadedness. No cold intolerance. He has no change in bowel habit or change in weight. No epigastric pain or abdominal discomfort. he denies any blood per rectum or melena. No previous GI evaluation for anemia. His most recent Hemoccult stool was negative. MEDICATIONS: Current Outpatient Prescriptions: doxazosin (CARDURA) 4 mg tablet Take 4 mg by mouth twice daily. insulin detemir U-100 (LEVEMIR FLEXTOUCH U-100 INSULN) 100 unit/mL (3 mL) inpn injection Inject 20 Units subcutaneously daily at bedtime. (Patient taking differently: Inject 17 Units subcutaneously daily at bedtime. ) hydrALAZINE (APRESOLINE) 25 mg tablet Take 25 mg by mouth three times daily. furosemide (LASIX) 40 mg tablet Take 1 tablet by mouth once daily. carvedilol (COREG) 25 mg tablet Take 25 mg by mouth twice daily with meals. metOLAzone (ZAROXOLYN) 2.5 mg tablet Take 2.5 mg by mouth once daily. gabapentin (NEURONTIN) 300 mg capsule Take 1 capsule by mouth twice daily. HYDROcodone-acetaminophen (NORCO) 5-325 mg per tablet Take 1 tablet by mouth every 8 hours as needed. MULTIVITAMIN/IRON/FOLIC ACID (DAILY MULTI ORAL) Take 2 Each by mouth once daily. lisinopril (ZESTRIL) 40 mg tablet Take 1 tablet by mouth once daily. Tadalafil (CIALIS) 20 mg tab(s) Take 1 tablet by mouth as needed. pravastatin (PRAVACHOL) 80 mg tablet Take 80 mg by mouth once daily. aspirin, enteric coated (ASPIR-81) 81 mg EC tablet Take 1 tablet by mouth once daily. (Patient taking differently: Take 162 mg by mouth once daily.) latanoprost (XALATAN) 0.005 % ophthalmic solution Use 1 Drop in both eyes daily at bedtime. into affected eye(s). No current facility-administered medications for this visit. . ALLERGIES: ALLERGIES Allergen Reactions - Lyrica [Pregabalin] Swelling . PAST MEDICAL HISTORY: PAST MEDICAL HISTORY Diagnosis Date - Ankylosing spondylitis ([facility]) - CAD (coronary artery disease) - Cellulitis - Constipation - Diabetes ([facility]) - Gout - Hx of fracture multiple bones - NSTEMI (non-ST elevated myocardial infarction) ([facility]) 03/12/2017 [facility] admit - Osteoarthritis . PAST SURGICAL HISTORY: PAST SURGICAL HISTORY Procedure Laterality Date - CORONARY ARTERY BYPASS GRAFT 04/12/2017 x 3 - HIP SURGERY HX Right pin - KNEE ARTHROSCOPY Left x2 - KNEE SURGERY HX Right TKR, right, arthoscopy x3 - PAST SURGICAL HISTORY OF 09/07/2017 08/15/17 fx radius in 2 places; plate and screws.Plate and screws 09/07/17 [facility] - TOE SURGERY HX Right . FAMILY HISTORY: FAMILY HISTORY Problem Relation Age of Onset - Arthritis Mother - Coronary Artery Disease Mother - Diabetes Mother - Heart Mother - Hypertension Mother - Alcohol/Drug Father - Arthritis Father - Heart Father - Hypertension Father . SOCIAL HISTORY:Social History Marital status: Spouse name: Yun Years of education: Number of children: 2 Social History Main Topics Smoking status: Never Smoker Smokeless tobacco: Former User Types: Chew Alcohol use: No Comment: seldom Drug use: No Sexual activity: Yes Partners with: Female Other Topics Concern Service No Blood Transfusions No Caffeine Concern No Comment:None Occupational Exposure No Hobby Hazards No Sleep Concern No Stress Concern No Weight Concern Yes Special Diet No Back Care No Exercise No Comment:No formal Bike Helmet No Seat Belt Yes Self-Exams No . REVIEW OF SYSTEMS: CONSTITUTIONAL: No fevers, chills, nightsweats, unintended weight loss HEENT: Denies frequent or severe heaches, nasal congestion/sinus symptoms, problematic allergy problems. EYES: No diplopia or blurry vision. CARDIOVASCULAR: No chest pain, dyspnea, palpitations, orthopnea, PND, ankle edema. PULM: No dyspnea, unexplained cough. GI: No dysphagia/odynophagia, problematic reflux, constipation, diarrhea, changes in stool habits, hematochezia, melena. : No new urinary complaints, including dysuria, gross hematuria or pyuria. NEURO: No new balance problems, peripheral weakness/paresthesias or numbness of concern. MUSC-SKEL: No new joint pain, swelling, or erythema. PSY: No concerns regarding depression, anxiety or panic. INTEGUMENTARY: No new skin changes (rash, new or changing mole, new growth) PHYSICAL EXAMINATION: 62-year-old well-nourished well-developed gentleman appearing distress BP 117/66 Pulse 54 Temp 97.9 Ht 5' 8.701[verified by Melanie Posada RN[ (1.75m) Wt 176 lb (79.8kg) BMI 26.22 kg/(m2). HEENT: Head is normocephalic, atraumatic. Sclerae white, conjunctivae pink. PEERL. EOMs are intact. Oropharynx is benign.complexion pale but no excessive pallor LYMPHATICS: There is no palpable adenopathy in the neck, supraclavicular region, axillae, or groin. LUNGS: Lungs are clear to percussion and auscultation. HEART: Heart is normal without murmurs, gallops, or rubs. ABDOMEN: Soft and nontender without organomegaly. No masses can be palpated. EXTREMITIES: Are without edema. NEUROLOGIC: Exam is physiologic LABORATORY DATA: Component Latest Ref Rng AND Units 03/04/2018 WBC, [place] 3.70 - 11.00 k/uL 6.03 RBC, Gap 4.20 - 6.00 m/uL 3.57 (L) Hemoglobin, Gap 13.0 - 17.0 g/dL 10.1 (L) Hematocrit, Gap 39.0 - 51.0 % 31.6 (L) MCV, Gap 80.0 - 100.0 fL 88.5 MCH, [place] 26.0 - 34.0 pg 28.3 MCHC, [place] 30.5 - 36.0 g/dL 32.0 RDW, Gap 11.5 - 15.0 % 14.8 Platelet Cnt, Gap 150 - 400 k/uL 263 MPV, [place] 9.0 - 12.7 fL 8.7 (L) Absol Gran Count 1.45 - 7.50 k/uL 4.11 peripheral blood smear: Normocytic / normochromic anemia; platelet is adequate without clumping or clotting. Normal differential. Component Latest Ref Rng AND Units 03/04/2018 Iron 41 - 186 ug/dL 68 TIBC 232 - 386 ug/dL 300 Transferrin Saturation 15 - 57 % 23 Retic % 0.4 - 2.0 % 1.4 Abs Retic 0.0180 - 0.1000 M/uL 0.053 Ferritin 30.3 - 565.7 ng/mL 283.0 Component Latest Ref Rng AND Units 02/20/2018 Vitamin B12 232 - 1,245 pg/mL 807 Folate >4.7 ng/mL >20.0 ASSESSMENT: 62-year-old with anemia of chronic disease and possible iron deficiency. Other than mild fatigue, the patient is asymptomatic PLAN: - repeat iron study, reticulocyte count, today and check stool for Hemoccult x 3 - If blood transfusion is likely with his total hip replacement surgery, then I would replace with IV iron if his iron saturation is less than 20%. - if his anemia is still significant after iron, then consider Procrit or Aranesp injection for treatment of anemia before his surgery. - However, if his surgery is not urgent, then consider oral iron replacement therapy first (ferrous sulfate 325mg 3 times daily) forearm deficiency and repeat CBC and iron studies in one month. - Consider Procrit or Aranesp injection for treatment of anemia before surgery if needed. - repeat CBC AND office visit in one month. The patient and family were allowed enough time to ask questions. All questions were answered to their satisfaction. Patient and family verbalized understanding of treatment anemia and agreed to proceed with iron replacement therapy. Nic Gary MD. ELECTRONICALLY SIGNED Referring Provider: BLADE GOULD [[id number]] Allergies As of Date: 03/04/2018 Noted Allergy Reaction LYRICA (PREGABALIN) 03/23/2017 7 - Swelling Date Reviewed: 03/04/2018 Reviewed by: Abby Harrington (Auto [employer]) ERIK Beltran - Fully Assessed Reason for Visit: New Patient [172] Primary Visit Diagnosis:Anemia in stage 3 chronic kidney disease (HCC) [N18.3, D63.1] Other Visit Diagnoses:Iron deficiency anemia, unspecified iron deficiency anemia type [D50.9] Arteriosclerotic heart disease (ASHD) [I25.10] Chronic left hip pain [M25.552, G89.29] Order(s):RETIC COUNT [SQRETIC] Order #: [id number] FUTURE IRON + TIBC [SQIRON] Order #: [id number] FUTURE FERRITIN BLD [SQFERR] Order #: [id number] FUTURE OCCULT BLD EXAM-DIAG [SQOB] Order #: [id number] STANDING Level of Service: NEW PATIENT VISIT LEVEL 4 [[id number]] Disposition: Return in about 4 weeks (around 04/01/2018). Follow-up and Disposition History Recorded Prescriptions as of 03/04/2018 Sig: DOXAZOSIN 4 MG TABLET Take 4 mg by mouth twice jagdeep* INSULIN DETEMIR (U-100) 100 U* Inject 20 Units subcutaneousl* Patient taking differently: Inject 17 Units subcutaneousl* HYDRALAZINE 25 MG TABLET Take 25 mg by mouth three solitario* FUROSEMIDE 40 MG TABLET Take 1 tablet by mouth once d* CARVEDILOL 25 MG TABLET Take 25 mg by mouth twice rafita* METOLAZONE 2.5 MG TABLET Take 2.5 mg by mouth once rafita* GABAPENTIN 300 MG CAPSULE Take 1 capsule by mouth twice* HYDROCODONE 5 MG-ACETAMINOPHE* Take 1 tablet by mouth every * DAILY MULTI ORAL Take 2 Each by mouth once rafita* LISINOPRIL 40 MG TABLET Take 1 tablet by mouth once d* TADALAFIL 20 MG TABLET Take 1 tablet by mouth as nee* PRAVASTATIN 80 MG TABLET Take 80 mg by mouth once jagdeep* ASPIRIN 81 MG TABLET,DELAYED * Take 1 tablet by mouth once d* Patient taking differently: Take 162 mg by mouth once rafita* LATANOPROST 0.005 % EYE DROPS Use 1 Drop in both eyes daily* Medication notes this encounter OXYCODONE-ACETAMINOPHEN 5 MG-325 MG TABLET >> Abby Beltran LPN, ERIK 03/04/2018 3:01 PM >> ABBY BELTRAN SunMar 04, 2018 3:01 PM discontinued Problem List As Of Date 03/04/2018 Noted Resolved Uncontrolled type 2 diabetes mellitus without c*INVALID FOR* More... 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 Hypertension, essential [I10] INVALID FOR* Lower leg edema [R60.0] INVALID FOR* More... Chronic left hip pain [M25.552, G89.29] INVALID FOR* Visit Notes: >> Abby Beltran LPN SunMar 04, 2018 3:03 PM Status: Signed New pt, discuss recent DX: Anemia Abby Harrington ERIK Beltran Encounter Status:Closed by NIC GARY MD on 03/05/18 [place] ABS GR + CBC Collected: 03/04/2018 Status: F Source: [place] 2:40 PM [facility] REPOSITORY TYPE CODE TESTS RESULT OUT OF REFERENCE UNITS RANGE LAB WWBC 3.70-11.00 k/uL [place] WBC 6.03 LAB WRBC 4.20-6.00 m/uL Low [place] RBC 3.57 LAB WHGB 13.0-17.0 g/dL Low Gap Hemoglobin 10.1 LAB WHCT 39.0-51.0 % Low [place] Hematocrit 31.6 LAB WMCV 80.0-100.0 fL [place] MCV 88.5 LAB WMCH 26.0-34.0 pg Gap MCH 28.3 LAB WMCHC 30.5-36.0 g/dL [place] MCHC 32.0 LAB WRDW 11.5-15.0 % [place] RDW 14.8 LAB WPLT 150-400 k/uL [place] Platelet Cnt 263 LAB WMPV 9.0-12.7 fL Low Gap MPV 8.7 Result Comment: Test performed at: [facility], [address], [address] [facility] [address] [place] [address]. LAB ABGRAN 1.45-7.50 k/uL Absol Gran 4.11 Count CNOV Observed: 02/25/2018 Status: COMPLETED Source: [place] 10:40 AM [facility] REPOSITORY Office Visit (FAMPWS) MAURI QUINONES ([id number]) 1955 M Date Time Provider Department 02/25/18 10:40 AM [facility] During your visit today, we recorded the following information about you: Pulse Blood pressure 51/minute 128/58 Dena Florian Ma 02/25/2018 11:15 AM Signed Manual Readin/58 Pulse: 51 Reason for blood pressure check - Last BP elevated Patient is: Taking medication as prescribed Yes Took medication today Yes If no, date medication last taken NA Experiencing side effects No Recommendations Continue taking medications as prescribed Follow-up Will be notified by provider. Pt has been identified by name and birthdate: Yes Allergies reviewed: Yes Latex allergy: no. Medication - prescribed and OTC reviewed and updated: Yes Do you need any prescription refills prior to your next visit: No Health Maintenance: Reviewed and not up to date and provider notified FASTING BS: 02/21: 189 02/22, 02/23, 02/24: 129 02/25: 109 Patient also requests another lab order for HGB to be tested. Last test 02/20/18 with a result of 11.1. Needs retested to be able to schedule hip surgery. Questions if he is able/in need of shots to raise HGB. Referring Provider: SELF [[id number]] Allergies As of Date: 02/25/2018 Noted Allergy Reaction LYRICA (PREGABALIN) 03/23/2017 7 - Swelling Date Reviewed: 02/25/2018 Reviewed by: Dena Florian Ma - Fully Assessed Reason for Visit: Blood Pressure Check [195] Primary Visit Diagnosis:Hypertension, essential [I10] Prescriptions as of 02/25/2018 Sig: HYDRALAZINE 25 MG TABLET Take 25 mg by mouth three solitario* FUROSEMIDE 40 MG TABLET Take 1 tablet by mouth once d* CARVEDILOL 25 MG TABLET Take 25 mg by mouth twice rafita* METOLAZONE 2.5 MG TABLET Take 2.5 mg by mouth once rafita* GABAPENTIN 300 MG CAPSULE Take 1 capsule by mouth twice* INSULIN DETEMIR (U-100) 100 U* Inject 20 Units subcutaneousl* DOXAZOSIN 2 MG TABLET Take 1 tablet by mouth twice * OXYCODONE-ACETAMINOPHEN 5 MG-* HYDROCODONE 5 MG-ACETAMINOPHE* Take 1 tablet by mouth every * DAILY MULTI ORAL Take 2 Each by mouth once rafita* LISINOPRIL 40 MG TABLET Take 1 tablet by mouth once d* TADALAFIL 20 MG TABLET Take 1 tablet by mouth as nee* PRAVASTATIN 80 MG TABLET Take 80 mg by mouth once jagdeep* ASPIRIN 81 MG TABLET,DELAYED * Take 1 tablet by mouth once d* Patient taking differently: Take 162 mg by mouth once rafita* NITROGLYCERIN 0.4 MG SUBLINGU* Dissolve 1 tablet under the t* LATANOPROST 0.005 % EYE DROPS Use 1 Drop in both eyes daily* Problem List As Of Date 02/25/2018 Noted Resolved Uncontrolled type 2 diabetes mellitus without c*INVALID FOR* More... 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 Hypertension, essential [I10] INVALID FOR* Lower leg edema [R60.0] INVALID FOR* More... Encounter Status:Closed by DENA FLORIAN MA on 02/25/18 PROGRESS Observed: 02/25/2018 Status: COMPLETED Source: [place] 10:38 AM [facility] REPOSITORY HNO ID: [id number] Author: Dena Florian Ma Service: (none) Author Type: (none) Type: Progress Notes Filed: 02/25/2018 11:15 AM Note Text: Manual Readin/58 Pulse: 51 Reason for blood pressure check - Last BP elevated Patient is: Taking medication as prescribed Yes Took medication today Yes If no, date medication last taken NA Experiencing side effects No Recommendations Continue taking medications as prescribed Follow-up Will be notified by provider. Pt has been identified by name and birthdate: Yes Allergies reviewed: Yes Latex allergy: no. Medication - prescribed and OTC reviewed and updated: Yes Do you need any prescription refills prior to your next visit: No Health Maintenance: Reviewed and not up to date and provider notified FASTING BS: 02/21: 189 02/22, 02/23, 02/24: 129 02/25: 109 Patient also requests another lab order for HGB to be tested. Last test 02/20/18 with a result of 11.1. Needs retested to be able to schedule hip surgery. Questions if he is able/in need of shots to raise HGB. URINALYSIS WITH Collected: 02/23/2018 Status: F Source: [facility] 10:25 AM [facility] REPOSITORY TYPE CODE TESTS RESULT OUT OF RANGE REFERENCE UNITS LAB UCOL Yellow Color Yellow LAB [facility] Clear Clarity Abnormal Cloudy Alert LAB UGLUC Negative mg/dL Glucose, Urine Negative LAB UBIL Negative Bilirubin, Urine Negative LAB UKET Negative Ketones, Urine Negative LAB USPG 1.005-1.030 Specific [place], Ur 1.010 LAB UHGB Negative Abnormal Hemoglobin/Blood, 1+ Alert Ur LAB UPH 4.5-8.0 pH 8.0 LAB UPROT Negative mg/dL Protein, Abnormal Urine 100 Alert LAB UUROB Normal Urobilinogen Normal LAB UNITR Negative Nitrites Negative LAB ULKEST Negative Leukest Abnormal 3+ Alert LAB UCOM Comments SEE COMMENT Result Comment: N/A LAB UMCOM Urine SEE Lionel Comment COMMENT Result Comment: Result rechecked. LAB UWBC 0-5 /HPF WBC 0-5 LAB URBC 0-3 /HPF Abnormal Alert RBC 3-5 LAB UCAST 0 /LPF Abnormal Alert Cast SEE COMMENT Result Comment: 4-10 Hyaline Cast Performed By: #### UAWMIC #### [facility] [employer] [address] [place] [address] Observed: 02/23/2018 Status: F Source: [place] URINE CULTURE 10:25 AM [facility] REPOSITORY Culture Result - 10,000 - <50,000 CFU/ml Normal urogenital douglas Performed By: #### URCUL #### [facility] [employer] [address] [place] [address] MONOCLONL PROTEIN,BL Collected: 02/23/2018 Status: F Source: [place] 10:25 AM [facility] REPOSITORY TYPE CODE TESTS RESULT OUT OF REFERENCE UNITS RANGE LAB MPAIGG 717-1411 mg/dL MPA Serum 1130 IgG LAB MPAIGA 78-391 mg/dL High MPA Serum 421 IgA LAB MPAIGM 53-334 mg/dL MPA Serum 175 IgM LAB MPAK 534-1267 mg/dL Serum 955 [place] LAB MPAL 253-653 mg/dL Serum 551 Lambda LAB MPAKL 1-3 MPA 1.73 Andres/Servin Ratio LAB MPAR No M protein is identified. No MPA M protein is Result identified. LAB MPASTF Staff Reviewed by Review Floyd Porter MD ([id number]) Performed By: #### MPASRM #### [facility] [employer] [address] [place], [place] [address] FECAL OCCULT BLD Collected: 02/22/2018 Status: F Source: [place] TST 11:45 PM [facility] REPOSITORY TYPE CODE TESTS RESULT OUT OF REFERENCE UNITS RANGE LAB IFO Negative Immuno Negative FOB Result Comment: This test was developed and its performance characteristics determined by [facility]'s [facility] [place] [facility] It has not been cleared or approved by the FDA. [facility] is regulated under CLIA as qualified to perform high-complexity testing. This test is used for clinical purposes. It should not be regarded as investigational or for research. Performed By: #### IFOBT #### [address] [address] BASIC METABOLIC PANL Collected: 02/20/2018 Status: F Source: [place] 1:43 PM [facility] REPOSITORY TYPE CODE TESTS RESULT OUT OF REFERENCE UNITS RANGE LAB GLU 74-99 mg/dL High Glucose 129 Result Comment: The [place] Diabetes Association (ADA) provides guidance for cutoff values for fasting glucose and random glucose. The ADA defines fasting as no caloric intake for at least 8 hours. Fas ting plasma glucose results between 100 to 125 mg/dL indicate increased risk for diabetes (prediabetes). Fasting plasma glucose results greater than or equal to 126 mg/dL meet the criteria for diagnosis of diabetes. In the absence of unequivocal hyperglycemia, results should be confirmed by repeat testing. In a patient with classic symptoms of hyperglycemia or hyperglycemic crisis, random plasma glucose results greater than or equal to 200 mg/dL meet the criteria for diagnosis of diabetes. Reference: Standards of Medical Care in Diabetes 2016, [place] Diabetes Association. Diabetes Care. 2016.39(Suppl 1). LAB BUN 9-24 mg/dL BUN High 46 LAB CRET 0.73-1.22 mg/dL Creatinine High 1.29 LAB NA 136-144 mmol/L Sodium 136 LAB K 3.7-5.1 mmol/L Potassium 5.1 LAB CL 97-105 mmol/L Low Chloride 96 LAB CO2 22-30 mmol/L CO2 29 LAB AGAP 9-18 mmol/L Anion Gap 11 LAB CA 8.5-10.2 mg/dL Calcium, Total 9.0 LAB GFRAA eGFR- Amer. >60 LAB GFRNAA . eGFR-All Other Races 57 Result Comment: eGFR (Estimated GFR) Units of measure: mL/min/1.73 meters squared eGFR is derived from the reexpressed MDRD Study equation using the following parameters: serum creatinine, age, gender and race. The creatinine assay has been calibrated to be traceable to IDMS. An eGFR <60 mL/min/1.73m2 for >3 months is consistent with chronic kidney disease. Refer to KDOQI guidelines for clinical interpretation. In patients with unstable renal function, e.g. those with acute kidney injury, the eGFR may not accurately reflect actual GFR. Performed By: #### BMP, CBCDIF, RETIC, IRON, FERR, B12, SERFOL, SEPG #### [facility] [address] [place], [place] [address] CBC AND DIFFERENTIAL Collected: 02/20/2018 Status: F Source: [place] 1:43 PM [facility] REPOSITORY TYPE CODE TESTS RESULT OUT OF REFERENCE UNITS RANGE LAB WBC 3.70-11.00 k/uL WBC 6.29 LAB RBC 4.20-6.00 m/uL Low RBC 4.00 LAB HGB 13.0-17.0 g/dL Low Hemoglobin 11.1 LAB HCT 39.0-51.0 % Low Hematocrit 36.3 LAB MCV 80.0-100.0 fL MCV 90.8 LAB MCH 26.0-34.0 pG MCH 27.8 LAB MCHC 30.5-36.0 g/dL MCHC 30.6 LAB RDWCV 11.5-15.0 % RDW-CV 14.3 LAB PLTCT 150-400 k/uL Platelet Count 272 LAB MPV 9.0-12.7 fL MPV High 12.8 LAB ANEUT % Neut% 69.4 LAB AANEUT 1.45-7.50 k/uL Abs Neut 4.36 LAB ALYMP % Lymph% 19.1 LAB AALYMP 1.00-4.00 k/uL Abs Lymph 1.20 LAB AMONO % Hardy% 8.9 LAB AAMONO <0.87 k/uL Abs Hardy 0.56 LAB AEOS % Eosin% 2.1 LAB AAEOS <0.46 k/uL Abs Eosin 0.13 LAB ABASO % Baso% 0.5 LAB AABASO <0.11 k/uL Abs Baso 0.03 LAB AUNRBC 0 /100 WBC NRBCs 0.0 LAB ABNRBC <0.01 k/uL Absolute nRBC <0.01 LAB DTYP DTYPE Auto Diff Performed By: #### BMP, CBCDIF, RETIC, IRON, FERR, B12, SERFOL, SEPG #### [place] [address] RETICULOCYTE Collected: 02/20/2018 Status: F Source: [place] 1:43 [facility] REPOSITORY TYPE CODE TESTS RESULT OUT OF REFERENCE UNITS RANGE LAB RETC 0.4-2.0 % Retic% 1.6 LAB ABRET 0.0180-0.1000 M/uL Abs Retic 0.064 Performed By: #### BMP, CBCDIF, RETIC, IRON, FERR, B12, SERFOL, SEPG #### [place] [address] IRON AND TIBC Collected: 02/20/2018 Status: F Source: [place] 1:43 [facility] REPOSITORY TYPE CODE TESTS RESULT OUT OF REFERENCE UNITS RANGE LAB IRN 41-186 ug/dL Iron 62 LAB TIBC 232-386 ug/dL TIBC 340 LAB SAT 15-57 % Transferrin Saturatn 18 Performed By: #### SEBLE, CBCDIF, RETIC, IRON, FERR, B12, SERFOL, SEPG #### [place] [address] FERRITIN Collected: 02/20/2018 Status: F Source: [place] 1:43 PM [facility] REPOSITORY TYPE CODE TESTS RESULT OUT OF REFERENCE UNITS RANGE LAB FERR 30.3-565.7 ng/mL Ferritin 458.5 Performed By: #### BMP, CBCDIF, RETIC, IRON, FERR, B12, SERFOL, SEPG #### [place] [address] VITAMIN B12 Collected: 02/20/2018 Status: F Source: [place] 1:43 PM [facility] REPOSITORY TYPE CODE TESTS RESULT OUT OF REFERENCE UNITS RANGE LAB B12 232-1245 pg/mL Vitamin B12 807 Performed By: #### BMP, CBCDIF, RETIC, IRON, FERR, B12, SERFOL, SEPG #### [facility] [employer] [address] [place], [place] [address] FOLATE, SERUM Collected: 02/20/2018 Status: F Source: [place] 1:43 [facility] REPOSITORY TYPE CODE TESTS RESULT OUT OF REFERENCE UNITS RANGE LAB SERFOL >4.7 ng/mL Folate, >20.0 Serum Result Comment: A result of > 20 ng/mL is not necessarily indicative of a pathologic or treatable condition: it reflects a limitation of the test methodology. Assay reference range: 4.8 to 24.2 ng/mL. Suitable for detection of folate deficiency. Reference: Folate III (Folate III) [package insert V 1.0 Indonesian]. [employer], [place], [place]: June 2015. Performed By: #### BMP, CBCDIF, RETIC, IRON, FERR, B12, SERFOL, SEPG #### [facility] [employer] [address] [place] [id number] PROTEIN ELECTROPHOR. Collected: 02/20/2018 Status: F Source: [place] 1:43 [facility] REPOSITORY TYPE CODE TESTS RESULT OUT OF REFERENCE UNITS RANGE LAB TPSPE 6.0-8.4 g/dL Total Protein, SPE 6.6 LAB ALBE 3.37-4.23 gm/dL Albumin Low 3.03 LAB A1GL 0.18-0.31 gm/dL Alpha 1 Globulin 0.26 LAB A2GL 0.52-0.97 gm/dL Alpha 2 Globulin 0.84 LAB BEGL 0.84-1.36 gm/dL Beta Globulin 1.16 LAB GAGL 0.70-1.44 gm/dL Gamma Globulin 1.32 LAB SPEINT Interpretation SEE COMMENT Result Comment: An atypical region of restricted mobility is identified on protein electrophoresis. The atypical region is relatively poorly defined and may represent an unusual presentation of polyclonal immunoglobulins, but cannot rule out the presence of a low level M protein. If clinically indicat ed, monoclonal protein analysis and serum free light chain analysis are suggested to evaluate further for monoclonal gammopathy. LAB LOC M Protein N/A Location LAB GPERDL 0.00 gm/dL M Feliciano 0.00 Concentratn LAB SPESTF SPE Staff Review Reviewed by Cade Izaguirre M.D. ([id number]) Performed By: #### BMP, CBCDIF, RETIC, IRON, FERR, B12, SERFOL, SEPG #### [facility] [address] [place], [place] [address] US KIDNEY/BLADDER Observed: 02/20/2018 Status: F Source: [place] 1:39 PM [facility] REPOSITORY * * *Final Report* * * DATE OF EXAM: Feb 20 2018 1:39PM [facility] 1055 - US KIDNEY/BLADDER / PROCEDURE REASON: multiple diagnoses * * * * Physician Interpretation * * * * EXAMINATION: RENAL ULTRASOUND HISTORY: Proteinuria, unspecified Disorder of kidney and ureter, unspecified TECHNIQUE: Sonography of the kidneys and urinary bladder was performed. Images were obtained and stored in a permanent archive. MQ: UR_1 COMPARISON: None RESULT: Right Kidney: -Renal length: 13.6 cm -Parenchyma: Normal echogenicity -Collecting system: No hydronephrosis on the RIGHT side -Calculus: Small hyperechoic focus upper pole probably represents Tiny stone 5 mm nonobstructing. -Lesion: No masses Left Kidney: -Renal length: 13.2 cm -Parenchyma: Normal echogenicity -Collecting system: No hydronephrosis on the LEFT side -Calculus: None -Lesion: No masses Bladder: Pre-void bladder volume 523. Postvoid residual 397. Bladder wall appears thickened and appears to be debris within the urinary bladder IMPRESSION: 1. Probable tiny nonobstructing stone upper pole RIGHT kidney 2. Large amount of post void residual in the urinary bladder. Bladder wall appears thickened and there is a large amount of debris within the urinary bladder. Arc Welder Apprentice: PSCB Transcribe Date/Time: Feb 21 2018 8:37A Dictated by : OSMAN JORDAN DO This examination was interpreted and the report reviewed and electronically signed by: OSMAN JORDAN DO on Feb 21 2018 8:41AM EST [id number] PROGRESS Observed: 02/20/2018 Status: COMPLETED Source: [place] 1:38 PM [facility] REPOSITORY HNO ID: [id number] Author: Addie Mckeon [facility] Service: (none) Author Type: (none) Type: Progress Notes Filed: 02/20/2018 1:39 PM Note Text: Radiology Service Progress Note PATIENT NAME: Mauri Quinones DATE OF SERVICE: February 20, 2018 TIME: 1:39 PM PATIENT IDENTITY VERIFICATION COMPLETED USING TWO (2) METHODS: Patient confirmed name verbally and Date of . PATIENT GENDER DATA: Male PATIENT RELEVANT IMPLANT DATA REVIEWED: Not Applicable RADIOLOGY DEPARTMENT: Ultrasound PERIPHERAL IV DATA: Not applicable SIGNED BY: Addie Mckoen Rdms February 20, 2018 1:39 PM PROGRESS Observed: 02/20/2018 Status: COMPLETED Source: [place] 11:28 AM [facility] REPOSITORY HNO ID: [id number] Author: Blade Gould Service: (none) Author Type: Physician Type: Progress Notes Filed: 02/20/2018 12:17 PM Note Text: No chief complaint on file. HPI: Patient presents today for office visit for follow up. Was seen and recently cleared for hip surgery by Albert Davis. Albert is out of town so I am covering. I asked him to come in so I could figure out what is going on. He was found to be anemia. We also did some follow up on his renal function. Apparently cardiology was to address his bp. He was to have preop procrit shots and his surgery was cancelled by ortho due to the fact he could not get a procrit shot due to his bp and they felt his baseline hb would then be too low. Was never told he was anemic until preop blood work. He had IV iron dose last Sunday ordered by Dr. Peguero. They were also going to do two procrit shots but held it due to high bp. Cardiology called in hydralazine yesterday. This am blood pressure is much better. Looking at old records he has been anemic in the past but that was due to CABG and a wrist surgery in the last year. Last surgery was in August so one would think if it was blood loss it would come back up. His hip surgery is going more invasive. They originally were going to do hip surgery but since his involves more surgery and thus his surgeon was uncomfortable doing surgery. My other question is what is causing his anemia. He has never a colonoscopy or egd. No abd pain, bowel change, bloody or black stools. No hematuria. No bleeding problems. No bruising. He has stage III ckd but a gfr in the upper 50's seems to be out of proportion to his anemia. He has been on nsaids. Discussed avoiding those. He is on zaroxolyn as well. He has been on lasix as well. His water retention is better. His gfr was over 60 in Aug and on 02/14. I did do some work up for his proteinuria which was elevated. His sugar was better this am. He had his insulin raised recently due to his high hba1c. He is wanting surgery dewayne, but his anemia needs to be better controlled and we have to make sure his bp is stable. No chest pain or shortness of breath. Component Latest Ref Rng AND Units 02/14/2018 02/15/2018 02/18/2018 WBC 3.70 - 11.00 k/uL 5.89 RBC 4.20 - 6.00 m/uL 3.69 (L) Hemoglobin 13.0 - 17.0 g/dL 10.2 (L) Hematocrit 39.0 - 51.0 % 33.1 (L) MCV 80.0 - 100.0 fL 89.7 MCH 26.0 - 34.0 pG 27.6 MCHC 30.5 - 36.0 g/dL 30.8 RDW-CV 11.5 - 15.0 % 13.7 Platelet Count 150 - 400 k/uL 310 MPV 9.0 - 12.7 fL 12.7 Absolute nRBC <0.01 k/uL <0.01 Glucose 74 - 99 mg/dL 85 173 (H) BUN 9 - 24 mg/dL 36 (H) 43 (H) Creatinine 0.73 - 1.22 mg/dL 1.21 1.30 (H) Sodium 136 - 144 mmol/L 139 136 Potassium 3.7 - 5.1 mmol/L 5.3 (H) 5.1 Chloride 97 - 105 mmol/L 102 96 (L) CO2 22 - 30 mmol/L 28 27 Anion Gap 9 - 18 mmol/L 9 13 Calcium 8.5 - 10.2 mg/dL 8.7 9.2 eGFR- >60 >60 eGFR-All Other Races . >60 56 Period hr 24 Urine Volume 24 hour mL 1,520 Collection Start Date Collection Start Time 600 Collection End Date Collection End Time 600 Specimen Request Specimen received in preservative Culture >=100,000 CFU/ml . . . Protein, Timed Urine <0.16 gm/24 Hr 3.85 (H) MEDICATIONS: Current Outpatient Prescriptions: hydrALAZINE (APRESOLINE) 25 mg tablet Take 25 mg by mouth three times daily. amoxicillin (AMOXIL) 875 mg tablet Take 1 tablet by mouth twice daily for 10 days. carvedilol (COREG) 25 mg tablet Take 25 mg by mouth twice daily with meals. metOLAzone (ZAROXOLYN) 2.5 mg tablet Take 2.5 mg by mouth once daily. celecoxib (CELEBREX) 200 mg capsule Take 200 mg by mouth twice daily. gabapentin (NEURONTIN) 300 mg capsule Take 1 capsule by mouth twice daily. insulin detemir U-100 (LEVEMIR FLEXTOUCH U-100 INSULN) 100 unit/mL (3 mL) inpn injection Inject 20 Units subcutaneously daily at bedtime. doxazosin (CARDURA) 2 mg tablet Take 1 tablet by mouth twice daily as needed. oxyCODONE-acetaminophen (PERCOCET) 5-325 mg tablet HYDROcodone-acetaminophen (NORCO) 5-325 mg per tablet Take 1 tablet by mouth every 8 hours as needed. MULTIVITAMIN/IRON/FOLIC ACID (DAILY MULTI ORAL) Take 2 Each by mouth once daily. lisinopril (ZESTRIL) 40 mg tablet Take 1 tablet by mouth once daily. Tadalafil (CIALIS) 20 mg tab(s) Take 1 tablet by mouth as needed. pravastatin (PRAVACHOL) 80 mg tablet Take 80 mg by mouth once daily. aspirin, enteric coated (ASPIR-81) 81 mg EC tablet Take 1 tablet by mouth once daily. (Patient taking differently: Take 162 mg by mouth once daily.) furosemide (LASIX) 40 mg tablet Take 40 mg by mouth once daily. in am and 20 mg in pm nitroglycerin sublingual (NITROQUICK) 0.4 mg SL tablet Dissolve 1 tablet under the tongue every 5 minutes as needed. latanoprost (XALATAN) 0.005 % ophthalmic solution Use 1 Drop in both eyes daily at bedtime. into affected eye(s). No current facility-administered medications for this visit. ALLERGIES: ALLERGIES Allergen Reactions - Lyrica [Pregabalin] Swelling PAST MEDICAL HISTORY Diagnosis Date - Ankylosing spondylitis (HCC) - CAD (coronary artery disease) - Cellulitis - Constipation - Diabetes (HCC) - Gout - Hx of fracture multiple bones - NSTEMI (non-ST elevated myocardial infarction) [facility] 03/12/2017 [facility] admit - Osteoarthritis PAST SURGICAL HISTORY Procedure Laterality Date - CORONARY ARTERY BYPASS GRAFT 04/12/2017 x 3 - HIP SURGERY HX Right pin - KNEE ARTHROSCOPY Left x2 - KNEE SURGERY HX Right TKR, right, arthoscopy x3 - PAST SURGICAL HISTORY OF 09/07/2017 08/15/17 fx radius in 2 places; plate and screws.Plate and screws 09/07/17 [facility] - TOE SURGERY HX Right FAMILY HISTORY Problem Relation Age of Onset - Arthritis Mother - Coronary Artery Disease Mother - Diabetes Mother - Heart Mother - Hypertension Mother - Alcohol/Drug Father - Arthritis Father - Heart Father - Hypertension Father Social History Marital status: Spouse name: Yun Years of education: Number of children: 2 Social History Main Topics Smoking status: Never Smoker Smokeless tobacco: Former User Types: Chew Alcohol use: Yes Comment: seldom Drug use: No Sexual activity: Yes Partners with: Female Other Topics Concern Service No Blood Transfusions No Caffeine Concern No Comment:None Occupational Exposure No Hobby Hazards No Sleep Concern No Stress Concern No Weight Concern Yes Special Diet No Back Care No Exercise No Comment:No formal Bike Helmet No Seat Belt Yes Self-Exams No Reviewed current medications, allergies, past medical history, surgical history, family history and social history today. REVIEW OF SYSTEMS All other reviewed and negative other than HPI. VITALS: BP 138/64 (BP Site: Left Arm, BP Position: Sitting, BP Cuff Size: Regular Adult) Pulse 66 Resp 12 Wt 78.5 kg (173 lb) BMI 25.77 kg/m? Last 4 Encounter Wt Readings: Date: Wt: 02/20/2018 78.5 kg (173 lb) 02/04/2018 83 kg (183 lb) 09/24/2017 80.3 kg (177 lb) 08/21/2017 80.7 kg (178 lb) PHYSICAL EXAMINATION: General appearance: Well appearing, alert, in no acute distress, well-hydrated, well nourished. Skin: Skin color, texture, turgor normal, no suspicious rashes or lesions. No excessive pallor Head: Normocephalic, no masses, lesions, tenderness or abnormalities Lungs: Lungs clear to auscultation. No wheezing, rhonchi, rales Heart: RRR without murmur, gallop, or rubs. No ectopy Abdomen: Normal abdominal exam, Abdomen soft, non-tender. Bowel sounds normal. No masses, organomegaly Extremities: No deformities, edema, skin discoloration, clubbing or cyanosis. Good capillary refill. Musculoskeletal: No joint swelling, deformity, or tenderness ASSESSMENT/PLAN: 1. Anemia, unspecified type - ICD9: 285.9, ICD10: D64.9 (primary diagnosis) - obviously we need to get better blood counts for surgery. I would also like to determine the exact etiology of his anemia. I do not this it should still be related to previous surgeries at this point. Will rule out a number of causes. We may need to have hematology see him as well. - CBC + DIFF - BASIC METABOLIC PNL - IRON + TIBC - VITAMIN B12 BLOOD - FOLATE SERUM - FERRITIN BLD - RETIC COUNT - FECAL OCCULT BLOOD TEST 2. Hypertension, essential - ICD9: 401.9, ICD10: I10 - seems to be better on new meds from cardiology. Will have him come back in on Sunday to recheck. 3. Arteriosclerotic heart disease (ASHD) - ICD9: 414.00, ICD10: I25.10 - per cardiology 4. Uncontrolled type 2 diabetes mellitus without complication, with long-term current use of insulin (HCC) - ICD9: 250.02, V58.67, ICD10: E11.65, Z79.4 - discussed importance of better sugar control. Bring in list of sugars on Sunday 5. Mononeuropathy due to underlying disease - ICD9: 355.9, ICD10: G59 6. Proteinuria, unspecified type - ICD9: 791.0, ICD10: R80.9 - check labs and see nephro. - BASIC METABOLIC PNL - PROTEIN ELECTROPHORESIS W/INTERP - CONSULT TO NEPHROLOGY 7. Renal insufficiency - ICD9: 593.9, ICD10: N28.9 - as above. - BASIC METABOLIC PNL - CONSULT TO NEPHROLOGY 8. Pain of right hip joint - ICD9: 719.45, ICD10: M25.551 - will send copy of note to Dr. Sullivna's so he is aware of what is going on. Blade Gould MD RTO in six weeks. bp check on Sunday CNOV Observed: 02/20/2018 Status: COMPLETED Source: [place] 11:00 AM [facility] REPOSITORY Office Visit (FAMPWS) MAURI QUINONES ([id number]) 1955 M Date Time Provider Department 02/20/18 11:00 AM BLADE GOULD During your visit today, we recorded the following information about you: Pulse Respiration Blood pressure Weight 66/minute 12/minute 138/64 78.5 kg Blade Gould MD 02/20/2018 12:17 PM Signed No chief complaint on file. HPI: Patient presents today for office visit for follow up. Was seen and recently cleared for hip surgery by Albert Davis. Albert is out of town so I am covering. I asked him to come in so I could figure out what is going on. He was found to be anemia. We also did some follow up on his renal function. Apparently cardiology was to address his bp. He was to have preop procrit shots and his surgery was cancelled by ortho due to the fact he could not get a procrit shot due to his bp and they felt his baseline hb would then be too low. Was never told he was anemic until preop blood work. He had IV iron dose last Sunday ordered by Dr. Peguero. They were also going to do two procrit shots but held it due to high bp. Cardiology called in hydralazine yesterday. This am blood pressure is much better. Looking at old records he has been anemic in the past but that was due to CABG and a wrist surgery in the last year. Last surgery was in August so one would think if it was blood loss it would come back up. His hip surgery is going more invasive. They originally were going to do hip surgery but since his involves more surgery and thus his surgeon was uncomfortable doing surgery. My other question is what is causing his anemia. He has never a colonoscopy or egd. No abd pain, bowel change, bloody or black stools. No hematuria. No bleeding problems. No bruising. He has stage III ckd but a gfr in the upper 50's seems to be out of proportion to his anemia. He has been on nsaids. Discussed avoiding those. He is on zaroxolyn as well. He has been on lasix as well. His water retention is better. His gfr was over 60 in Aug and on 02/14. I did do some work up for his proteinuria which was elevated. His sugar was better this am. He had his insulin raised recently due to his high hba1c. He is wanting surgery dewayne, but his anemia needs to be better controlled and we have to make sure his bp is stable. No chest pain or shortness of breath. Component Latest Ref Rng AND Units 02/14/2018 02/15/2018 02/18/2018 WBC 3.70 - 11.00 k/uL 5.89 RBC 4.20 - 6.00 m/uL 3.69 (L) Hemoglobin 13.0 - 17.0 g/dL 10.2 (L) Hematocrit 39.0 - 51.0 % 33.1 (L) MCV 80.0 - 100.0 fL 89.7 MCH 26.0 - 34.0 pG 27.6 MCHC 30.5 - 36.0 g/dL 30.8 RDW-CV 11.5 - 15.0 % 13.7 Platelet Count 150 - 400 k/uL 310 MPV 9.0 - 12.7 fL 12.7 Absolute nRBC <0.01 k/uL <0.01 Glucose 74 - 99 mg/dL 85 173 (H) BUN 9 - 24 mg/dL 36 (H) 43 (H) Creatinine 0.73 - 1.22 mg/dL 1.21 1.30 (H) Sodium 136 - 144 mmol/L 139 136 Potassium 3.7 - 5.1 mmol/L 5.3 (H) 5.1 Chloride 97 - 105 mmol/L 102 96 (L) CO2 22 - 30 mmol/L 28 27 Anion Gap 9 - 18 mmol/L 9 13 Calcium 8.5 - 10.2 mg/dL 8.7 9.2 eGFR- >60 >60 eGFR-All Other Races . >60 56 Period hr 24 Urine Volume 24 hour mL 1,520 Collection Start Date [id number] Collection Start Time 600 Collection End Date Collection End Time 600 Specimen Request Specimen received in preservative Culture >=100,000 CFU/ml . . . Protein, Timed Urine <0.16 gm/24 Hr 3.85 (H) MEDICATIONS: Current Outpatient Prescriptions: hydrALAZINE (APRESOLINE) 25 mg tablet Take 25 mg by mouth three times daily. amoxicillin (AMOXIL) 875 mg tablet Take 1 tablet by mouth twice daily for 10 days. carvedilol (COREG) 25 mg tablet Take 25 mg by mouth twice daily with meals. metOLAzone (ZAROXOLYN) 2.5 mg tablet Take 2.5 mg by mouth once daily. celecoxib (CELEBREX) 200 mg capsule Take 200 mg by mouth twice daily. gabapentin (NEURONTIN) 300 mg capsule Take 1 capsule by mouth twice daily. insulin detemir U-100 (LEVEMIR FLEXTOUCH U-100 INSULN) 100 unit/mL (3 mL) inpn injection Inject 20 Units subcutaneously daily at bedtime. doxazosin (CARDURA) 2 mg tablet Take 1 tablet by mouth twice daily as needed. oxyCODONE-acetaminophen (PERCOCET) 5-325 mg tablet HYDROcodone-acetaminophen (NORCO) 5-325 mg per tablet Take 1 tablet by mouth every 8 hours as needed. MULTIVITAMIN/IRON/FOLIC ACID (DAILY MULTI ORAL) Take 2 Each by mouth once daily. lisinopril (ZESTRIL) 40 mg tablet Take 1 tablet by mouth once daily. Tadalafil (CIALIS) 20 mg tab(s) Take 1 tablet by mouth as needed. pravastatin (PRAVACHOL) 80 mg tablet Take 80 mg by mouth once daily. aspirin, enteric coated (ASPIR-81) 81 mg EC tablet Take 1 tablet by mouth once daily. (Patient taking differently: Take 162 mg by mouth once daily.) furosemide (LASIX) 40 mg tablet Take 40 mg by mouth once daily. in am and 20 mg in pm nitroglycerin sublingual (NITROQUICK) 0.4 mg SL tablet Dissolve 1 tablet under the tongue every 5 minutes as needed. latanoprost (XALATAN) 0.005 % ophthalmic solution Use 1 Drop in both eyes daily at bedtime. into affected eye(s). No current facility-administered medications for this visit. ALLERGIES: ALLERGIES Allergen Reactions - Lyrica [Pregabalin] Swelling PAST MEDICAL HISTORY Diagnosis Date - Ankylosing spondylitis (HCC) - CAD (coronary artery disease) - Cellulitis - Constipation - Diabetes (HCC) - Gout - Hx of fracture multiple bones - NSTEMI (non-ST elevated myocardial infarction) [facility] 03/12/2017 [facility] admit - Osteoarthritis PAST SURGICAL HISTORY Procedure Laterality Date - CORONARY ARTERY BYPASS GRAFT 04/12/2017 x 3 - HIP SURGERY HX Right pin - KNEE ARTHROSCOPY Left x2 - KNEE SURGERY HX Right TKR, right, arthoscopy x3 - PAST SURGICAL HISTORY OF 09/07/2017 08/15/17 fx radius in 2 places; plate and screws.Plate and screws 09/07/17 [facility] - TOE SURGERY HX Right FAMILY HISTORY Problem Relation Age of Onset - Arthritis Mother - Coronary Artery Disease Mother - Diabetes Mother - Heart Mother - Hypertension Mother - Alcohol/Drug Father - Arthritis Father - Heart Father - Hypertension Father Social History Marital status: Spouse name: Yun Years of education: Number of children: 2 Social History Main Topics Smoking status: Never Smoker Smokeless tobacco: Former User Types: Chew Alcohol use: Yes Comment: seldom Drug use: No Sexual activity: Yes Partners with: Female Other Topics Concern Service No Blood Transfusions No Caffeine Concern No Comment:None Occupational Exposure No Hobby Hazards No Sleep Concern No Stress Concern No Weight Concern Yes Special Diet No Back Care No Exercise No Comment:No formal Bike Helmet No Seat Belt Yes Self-Exams No Reviewed current medications, allergies, past medical history, surgical history, family history and social history today. REVIEW OF SYSTEMS All other reviewed and negative other than HPI. VITALS: BP 138/64 (BP Site: Left Arm, BP Position: Sitting, BP Cuff Size: Regular Adult) Pulse 66 Resp 12 Wt 78.5 kg (173 lb) BMI 25.77 kg/m? Last 4 Encounter Wt Readings: Date: Wt: 02/20/2018 78.5 kg (173 lb) 02/04/2018 83 kg (183 lb) 09/24/2017 80.3 kg (177 lb) 08/21/2017 80.7 kg (178 lb) PHYSICAL EXAMINATION: General appearance: Well appearing, alert, in no acute distress, well-hydrated, well nourished. Skin: Skin color, texture, turgor normal, no suspicious rashes or lesions. No excessive pallor Head: Normocephalic, no masses, lesions, tenderness or abnormalities Lungs: Lungs clear to auscultation. No wheezing, rhonchi, rales Heart: RRR without murmur, gallop, or rubs. No ectopy Abdomen: Normal abdominal exam, Abdomen soft, non-tender. Bowel sounds normal. No masses, organomegaly Extremities: No deformities, edema, skin discoloration, clubbing or cyanosis. Good capillary refill. Musculoskeletal: No joint swelling, deformity, or tenderness ASSESSMENT/PLAN: 1. Anemia, unspecified type - ICD9: 285.9, ICD10: D64.9 (primary diagnosis) - obviously we need to get better blood counts for surgery. I would also like to determine the exact etiology of his anemia. I do not this it should still be related to previous surgeries at this point. Will rule out a number of causes. We may need to have hematology see him as well. - CBC + DIFF - BASIC METABOLIC PNL - IRON + TIBC - VITAMIN B12 BLOOD - FOLATE SERUM - FERRITIN BLD - RETIC COUNT - FECAL OCCULT BLOOD TEST 2. Hypertension, essential - ICD9: 401.9, ICD10: I10 - seems to be better on new meds from cardiology. Will have him come back in on Sunday to recheck. 3. Arteriosclerotic heart disease (ASHD) - ICD9: 414.00, ICD10: I25.10 - per cardiology 4. Uncontrolled type 2 diabetes mellitus without complication, with long-term current use of insulin (HCC) - ICD9: 250.02, V58.67, ICD10: E11.65, Z79.4 - discussed importance of better sugar control. Bring in list of sugars on Sunday 5. Mononeuropathy due to underlying disease - ICD9: 355.9, ICD10: G59 6. Proteinuria, unspecified type - ICD9: 791.0, ICD10: R80.9 - check labs and see nephro. - BASIC METABOLIC PNL - PROTEIN ELECTROPHORESIS W/INTERP - CONSULT TO NEPHROLOGY 7. Renal insufficiency - ICD9: 593.9, ICD10: N28.9 - as above. - BASIC METABOLIC PNL - CONSULT TO NEPHROLOGY 8. Pain of right hip joint - ICD9: 719.45, ICD10: M25.551 - will send copy of note to Dr. Sullivan's so he is aware of what is going on. Blade Gould MD RTO in six weeks. bp check on Sunday Referring Provider: SELF [200] Allergies As of Date: 02/20/2018 Noted Allergy Reaction LYRICA (PREGABALIN) 03/23/2017 7 - Swelling Date Reviewed: 02/04/2018 Reviewed by: Caryn Simpson LPN - Fully Assessed Primary Visit Diagnosis:Anemia, unspecified type [D64.9] Other Visit Diagnoses:Hypertension, essential [I10] Arteriosclerotic heart disease (ASHD) [I25.10] Uncontrolled type 2 diabetes mellitus without complication, with long-term current use of insulin (HCC) [E11.65, Z79.4] Mononeuropathy due to underlying disease [G59] Proteinuria, unspecified type [R80.9] Renal insufficiency [N28.9] Pain of right hip joint [M25.551] Order(s):furosemide (LASIX) 40 mg tabletTake 1 tablet by mouth once daily.Disp: Rfl: CBC + DIFF [SQCBCDIF] Order #: [id number] FUTURE BASIC METABOLIC PNL [SQBMP] Order #: [id number] FUTURE IRON + TIBC [SQIRON] Order #: [id number] FUTURE VITAMIN B12 BLOOD [SQB12] Order #: [id number] FUTURE FOLATE SERUM [SQSERFOL] Order #: [id number] FUTURE FERRITIN BLD [SQFERR] Order #: [id number] FUTURE RETIC COUNT [SQRETIC] Order #: [id number] FUTURE PROTEIN ELECTROPHORESIS W/INTERP [SQSEPG] Order #: [id number] FUTURE CONSULT TO NEPHROLOGY [9018] Order #: [id number]: 1 FECAL OCCULT BLOOD TEST [SQIFOBT] Order #: [id number] FUTURE Prescriptions as of 02/20/2018 Sig: HYDRALAZINE 25 MG TABLET Take 25 mg by mouth three solitario* FUROSEMIDE 40 MG TABLET Take 1 tablet by mouth once d* AMOXICILLIN 875 MG TABLET Take 1 tablet by mouth twice * CARVEDILOL 25 MG TABLET Take 25 mg by mouth twice rafita* METOLAZONE 2.5 MG TABLET Take 2.5 mg by mouth once rafita* GABAPENTIN 300 MG CAPSULE Take 1 capsule by mouth twice* INSULIN DETEMIR (U-100) 100 U* Inject 20 Units subcutaneousl* DOXAZOSIN 2 MG TABLET Take 1 tablet by mouth twice * OXYCODONE-ACETAMINOPHEN 5 MG-* HYDROCODONE 5 MG-ACETAMINOPHE* Take 1 tablet by mouth every * DAILY MULTI ORAL Take 2 Each by mouth once rafita* LISINOPRIL 40 MG TABLET Take 1 tablet by mouth once d* TADALAFIL 20 MG TABLET Take 1 tablet by mouth as nee* PRAVASTATIN 80 MG TABLET Take 80 mg by mouth once jagdeep* ASPIRIN 81 MG TABLET,DELAYED * Take 1 tablet by mouth once d* Patient taking differently: Take 162 mg by mouth once rafita* NITROGLYCERIN 0.4 MG SUBLINGU* Dissolve 1 tablet under the t* LATANOPROST 0.005 % EYE DROPS Use 1 Drop in both eyes daily* Problem List As Of Date 02/20/2018 Noted Resolved Uncontrolled type 2 diabetes mellitus without c*INVALID FOR* More... 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 Hypertension, essential [I10] INVALID FOR* Lower leg edema [R60.0] INVALID FOR* More... Prescriptions ordered this encounter Disp Refills Start End FUROSEMIDE 40 MG TABLET 02/20/2018 Class: Med Update Route: ORAL Sig: Take 1 tablet by mouth once daily. Medications Discontinued During This Encounter celecoxib (CELEBREX) 200 mg capsule 02/20/2018 Class: Historical Med Route: ORAL Sig: Take 200 mg by mouth twice daily. Disc: Reason for discontinue is not on file. furosemide (LASIX) 40 mg tablet 03/23/2017 02/20/2018 Class: Historical Med Route: ORAL Sig: Take 40 mg by mouth once daily. in am and 20 mg in pm Disc: Reason for discontinue is not on file. Disposition: Return in about 6 weeks (around 04/03/2018). Follow-up and Disposition History Recorded Encounter Status:Closed by BLADE GOULD MD on 02/20/18 BASIC METABOLIC PANL Collected: 02/18/2018 Status: F Source: [place] 1:55 PM [facility] REPOSITORY TYPE CODE TESTS RESULT OUT OF REFERENCE UNITS RANGE LAB GLU 74-99 mg/dL High Glucose 173 Result Comment: The [place] Diabetes Association (ADA) provides guidance for cutoff values for fasting glucose and random glucose. The ADA defines fasting as no caloric intake for at least 8 hours. Fas ting plasma glucose results between 100 to 125 mg/dL indicate increased risk for diabetes (prediabetes). Fasting plasma glucose results greater than or equal to 126 mg/dL meet the criteria for diagnosis of diabetes. In the absence of unequivocal hyperglycemia, results should be confirmed by repeat testing. In a patient with classic symptoms of hyperglycemia or hyperglycemic crisis, random plasma glucose results greater than or equal to 200 mg/dL meet the criteria for diagnosis of diabetes. Reference: Standards of Medical Care in Diabetes 2016, [place] Diabetes Association. Diabetes Care. 2016.39(Suppl 1). LAB BUN 9-24 mg/dL BUN High 43 LAB CRET 0.73-1.22 mg/dL Creatinine High 1.30 LAB NA 136-144 mmol/L Sodium 136 LAB K 3.7-5.1 mmol/L Potassium 5.1 LAB CL 97-105 mmol/L Low Chloride 96 LAB CO2 22-30 mmol/L CO2 27 LAB AGAP 9-18 mmol/L Anion Gap 13 LAB CA 8.5-10.2 mg/dL Calcium, Total 9.2 LAB GFRAA eGFR- Amer. >60 LAB GFRNAA . eGFR-All Other Races 56 Result Comment: eGFR (Estimated GFR) Units of measure: mL/min/1.73 meters squared eGFR is derived from the reexpressed MDRD Study equation using the following parameters: serum creatinine, age, gender and race. The creatinine assay has been calibrated to be traceable to IDMS. An eGFR <60 mL/min/1.73m2 for >3 months is consistent with chronic kidney disease. Refer to KDOQI guidelines for clinical interpretation. In patients with unstable renal function, e.g. those with acute kidney injury, the eGFR may not accurately reflect actual GFR. Performed By: #### BMP #### [facility] [employer] [address] [place], [place] [address] PERIOD / VOLUME Collected: 02/18/2018 Status: F Source: [place] 6:00 AM [facility] REPOSITORY TYPE CODE TESTS RESULT OUT OF REFERENCE UNITS RANGE LAB PER hr Period 24 LAB VOL mL Volume 1520 LAB COLSDT Collection Start Date LAB COLSTM Collection Start 599 Time LAB COLEDT Collection End Date LAB COLETM Collection End 599 Time Performed By: #### PV, UTP24 #### [facility] [employer] [address] [place], [place] [id number] PROTEIN URINE 24 HR Collected: 02/18/2018 Status: F Source: [place] 6:00 AM [facility] REPOSITORY TYPE CODE TESTS RESULT OUT OF REFERENCE UNITS RANGE LAB TP24GM <0.16 gm/24 Hr High Protein Urine 3.85 Performed By: #### PV, UTP24 #### [facility] [employer] [address] [place], [place] [address] Observed: 02/15/2018 Status: F Source: [place] URINE CULTURE 9:32 AM [facility] REPOSITORY Sp. Request/Comment: - Specimen received in preservative Culture Result - >=100,000 CFU/ml Normal urogenital douglas Performed By: #### URCUL #### [facility] [address] [id number] DOWNTIME REPORT Observed: 02/14/2018 Status: F Source: [place] 2:01 PM [facility] REPOSITORY [facility] Medical Records Department [address] [place] [id number] Downtime Report MR#: [id number] Acct: [id number] Name: MAURI QUINONES Farhana Rep #: [id number] : 1955 62 From: Manny Gtz PCP: Aditya Davis Status: REG CLI This patient was seen during an EMR downtime January 28, 2018 - February 04, 2018. This patient may have a combination of paper and electronic documentation or all paper documentation. All documentation is viewable within the e-chart portion of [facility] for each patient visit. CBC Collected: 02/14/2018 Status: F Source: [place] 9:07 AM [facility] REPOSITORY TYPE CODE TESTS RESULT OUT OF REFERENCE UNITS RANGE LAB WBC 3.70-11.00 k/uL WBC 5.89 LAB RBC 4.20-6.00 m/uL Low RBC 3.69 LAB HGB 13.0-17.0 g/dL Low Hemoglobin 10.2 LAB HCT 39.0-51.0 % Low Hematocrit 33.1 LAB MCV 80.0-100.0 fL MCV 89.7 LAB MCH 26.0-34.0 pG MCH 27.6 LAB MCHC 30.5-36.0 g/dL MCHC 30.8 LAB RDWCV 11.5-15.0 % RDW-CV 13.7 LAB PLTCT 150-400 k/uL Platelet Count 310 LAB MPV 9.0-12.7 fL MPV 12.7 LAB ABSNUC <0.01 k/uL Absolute nRBC <0.01 Performed By: #### CBC, BMP #### [facility] [address] [place], [place] [address] BASIC METABOLIC PANL Collected: 02/14/2018 Status: F Source: [place] 9:07 AM [facility] REPOSITORY TYPE CODE TESTS RESULT OUT OF REFERENCE UNITS RANGE LAB GLU 74-99 mg/dL Glucose 85 Result Comment: The [place] Diabetes Association (ADA) provides guidance for cutoff values for fasting glucose and random glucose. The ADA defines fasting as no caloric intake for at least 8 hours. Fas ting plasma glucose results between 100 to 125 mg/dL indicate increased risk for diabetes (prediabetes). Fasting plasma glucose results greater than or equal to 126 mg/dL meet the criteria for diagnosis of diabetes. In the absence of unequivocal hyperglycemia, results should be confirmed by repeat testing. In a patient with classic symptoms of hyperglycemia or hyperglycemic crisis, random plasma glucose results greater than or equal to 200 mg/dL meet the criteria for diagnosis of diabetes. Reference: Standards of Medical Care in Diabetes 2016, [place] Diabetes Association. Diabetes Care. 2016.39(Suppl 1). LAB BUN 9-24 mg/dL BUN High 36 LAB CRET 0.73-1.22 mg/dL Creatinine 1.21 LAB NA 136-144 mmol/L Sodium 139 LAB K 3.7-5.1 mmol/L Potassium High 5.3 LAB CL 97-105 mmol/L Chloride 102 LAB CO2 22-30 mmol/L CO2 28 LAB AGAP 9-18 mmol/L Anion Gap 9 LAB CA 8.5-10.2 mg/dL Calcium, Total 8.7 LAB GFRAA eGFR- Amer. >60 LAB GFRNAA . eGFR-All Other Races >60 Result Comment: eGFR (Estimated GFR) Units of measure: mL/min/1.73 meters squared eGFR is derived from the reexpressed MDRD Study equation using the following parameters: serum creatinine, age, gender and race. The creatinine assay has been calibrated to be traceable to IDMS. An eGFR <60 mL/min/1.73m2 for >3 months is consistent with chronic kidney disease. Refer to KDOQI guidelines for clinical interpretation. In patients with unstable renal function, e.g. those with acute kidney injury, the eGFR may not accurately reflect actual GFR. Performed By: #### CBC, BMP #### [facility] [address] [address] IRON PANEL Collected: 02/12/2018 Status: F Source: [facility] 2:11 PM [facility] REPOSITORY Order Comment: Kountze: M Minimal Draw: N : DRAWN RAYNA RN FROM IV SITE TYPE CODE TESTS RESULT OUT OF RANGE REFERENCE UNITS LAB L500.79372 65-175 UG/DL High IRON 249 Result Comment: Patients treated with metal-binding drugs (e.g.deferoxamine) may have depressed iron values, as chelated iron may not properly react in the Siemens iron assay. LAB L500.21494 221-481 UG/DL Normal TIBC 336 LAB L500.58293 30-44 % High IRON SAT 74 Performed By: #### L500.54277, L500.47525 #### [facility] [address] [place] [address] FERR Collected: 02/12/2018 Status: F Source: [facility] 2:11 PM [facility] REPOSITORY Order Comment: Kountze: M Minimal Draw: N : DRAWN RAYNA RN FROM IV SITE TYPE CODE TESTS RESULT OUT OF RANGE REFERENCE UNITS LAB L500.58737 24.0-388.0 NG/ML Normal FERR 87.5 Performed By: #### L500.36096, L500.42842 #### [facility] [address] [place] [address] ABO/RH NC Collected: 02/06/2018 Status: F Source: [facility] 9:40 AM [facility] REPOSITORY Order Comment: [place]: M Is This Patient Going To Surgery? Y Surgery Date: 02/20/18 TYPE CODE TESTS RESULT OUT OF RANGE REFERENCE UNITS LAB B100.0400 O Normal BLOOD NEGATIVE TYPE PATIENT RETYPE Collected: 02/06/2018 Status: F Source: [facility] 9:40 AM [facility] REPOSITORY Order Comment: Kountze: M Is This Patient Going To Surgery? Y Surgery Date: 02/20/18 TYPE CODE TESTS RESULT OUT OF RANGE REFERENCE UNITS LAB B100.98505 O Normal RETYPE NEGATIVE INTERP ANTIBODY SCREEN Collected: 02/06/2018 Status: F Source: [facility] 9:40 AM [facility] REPOSITORY Order Comment: Kountze: M Is This Patient Going To Surgery? Y Surgery Date: 02/20/18 TYPE CODE TESTS RESULT OUT OF RANGE REFERENCE UNITS LAB B100.0680 Normal ANTIBODY NEGATIVE SCREEN MRSA PCR Collected: 02/06/2018 Status: F Source: [facility] 9:40 AM [facility] REPOSITORY Order Comment: Kountze: M TYPE CODE TESTS RESULT OUT OF RANGE REFERENCE UNITS LAB L770.08995 NEGATIVE Normal MRSA NEGATIVE PCR Result Comment: PLEASE NOTE: TESTING DONE BY [employer]CHN[employer]. LAB L770.09033 NEGATIVE High POSITIVE SA PCR Result Comment: PLEASE NOTE: TESTING DONE BY [employer]. Performed By: #### L770.55169 #### [facility] [address] [place] [address] Observed: 02/06/2018 Status: F Source: [facility] URINE CULTURE 9:40 AM [facility] REPOSITORY Order Comment: Kountze: M ORGANISM 1: GAMMA HEMOLYTIC STREPTOCOCCUS COLONY COUNT >100,000 ID TO FOLLOW NOT VIABLE FOR SENSITIVITY Performed By: #### M100.40743 #### [facility] [address] [place] [address] CBC W/DIFF Collected: 02/06/2018 Status: F Source: [facility] 9:26 AM [facility] REPOSITORY Order Comment: Kountze: M TYPE CODE TESTS RESULT OUT OF RANGE REFERENCE UNITS LAB L200.38442 4.5-11.0 K/CU MM WBC Normal 6.9 LAB L200.93208 4.50-6.00 M/CU MM Low RBC 3.55 LAB L200.21847 13.5-17.5 G/DL Low HGB 9.8 LAB L200.07978 41.0-53.0 % Low HCT 30.8 LAB L200.62687 80.0-99.0 fl MCV Normal 86.8 LAB L200.76314 32.0-36.0 GM/DL Low MCHC 31.8 LAB L200.34900 11-14.5 RDW Normal 13.5 LAB L200.79233 9.4-12.4 MPV Normal 9.7 LAB L200.89065 150-450 K/CU MM PLT Normal 315 LAB L200.97331 45-75 % NEUTROPHILS Normal % 71.1 LAB L200.84507 Less than 2 % IMMATURE Normal GRAN % 0.4 LAB L200.16606 20-40 % Low LYMPH % 14.0 LAB L200.20957 2-10 % High MONOCYTE % 10.7 LAB L200.60455 0-5 % EOSINOPHIL Normal % 3.2 LAB L200.41162 0-2 % BASOPHIL % Normal 0.6 LAB L200.26375 2.0-8.3 K/CU MM NEUTROPHIL Normal ABS 4.90 LAB L200.50807 Less than 2 K/CU MM IMMATR GRAN Normal ABS 0.00 LAB L200.29758 0.9-4.4 K/CU MM LYMPH ABS Normal 1.00 LAB L200.78166 0.1-1.1 K/CU MM MONO ABS Normal 0.70 LAB L200.19427 0-0.5 K/CU MM EOS ABS Normal 0.20 LAB L200.76455 0-0.2 K/CU MM BASO ABS Normal 0.00 LAB L200.30623 Less than 1 % NRBC Normal 0.0 Performed By: #### L200.54357 #### [facility] [address] [place] [address] PT Collected: 02/06/2018 Status: F Source: [facility] 9:26 AM [facility] REPOSITORY Order Comment: Kountze: M TYPE CODE TESTS RESULT OUT OF RANGE REFERENCE UNITS LAB L300.19471 0.9-1.1 Normal INR 1.0 Result Comment: Recommended PT INR therapeutic range for php consultant and prophylactic therapy is 2.0 - 3.0. For heart valve and shunt patients the range is 2.5 - 3.5. LAB L300.60212 9.4-12.0 SECONDS Normal PTS 11.0 Performed By: #### L300.35481, L300.91498 #### [facility] [address] [place] [address] PTT Collected: 02/06/2018 Status: F Source: [facility] 9:26 AM [facility] REPOSITORY Order Comment: Kountze: M TYPE CODE TESTS RESULT OUT OF RANGE REFERENCE UNITS LAB L300.37357 22.5-31.4 SECONDS Normal PTT 26.1 Result Comment: Therapeutic Heparin Reference Range: High Dose: 56 - 86 seconds (DVT/PE) Low Dose: 50 - 70 seconds (Acute Coronary Syndrome) For low molecular weight heparin or danaparoid, monitoring is often NOT necessary, but the heparin assay, Xa inhibition assay (send-out) may be used in certain circumstances, as the PTT is generally insensitive to the effect of these agents. Direct thrombin inhibitors are becoming more widely utilized and these drugs are often monitored using the PTT. Performed By: #### L300.14829, L300.05579 #### [facility] [address] [place] [address] BMP Collected: 02/06/2018 Status: F Source: [facility] 9:26 AM [facility] REPOSITORY Order Comment: Kountze: M TYPE CODE TESTS RESULT OUT OF RANGE REFERENCE UNITS LAB L500.94046 136-145 MMOL/L Normal NA 140 LAB L500.35896 3.5-5.1 MMOL/L Normal K 5.1 LAB L500.57535 98-107 MMOL/L Normal CL 102 LAB L500.77064 21-32 MMOL/L Normal CO2 29 LAB L500.51725 5-16 MMOL/L Normal AGAP 9 LAB L500.61064 70-100 MG/DL High GLU 131 Result Comment: 70-100- Normal Fasting; 100-125 Impaired Fasting; greater than 126 on more than one result- Diabetes. ADA guidelines. Results may be falsely elevated after the administration of Sulfapyridine. Results may be falsely depressed after the administration of Sulfasalazine. LAB L500.01569 7-26 MG/DL High BUN 51 LAB L500.70613 0.670-1.170 MG/DL High CREAT 1.270 Result Comment: Patients receiving either N-Acetylcysteine (NAC) or Metamizole prior to venipuncture, may have falsely depressed results. LAB L500.24306 15-24 BUN/CREA High 40 LAB L500.63047 8.5-10.1 MG/DL Low CALCIUM TOTAL 8.3 Performed By: #### L500.26494, L500.80232, L500.97801, L500.02628 #### [facility] [address] [place] [address] GFR EST Collected: 02/06/2018 Status: F Source: [facility] 9:26 AM [facility] REPOSITORY Order Comment: Kountze: M TYPE CODE TESTS RESULT OUT OF RANGE REFERENCE UNITS LAB L500.38020 ML/MIN Normal IF non-AFR 58 AMER LAB L500.31919 ML/MIN Normal IF Greater than AMER 60 Performed By: #### L500.69903, L500.36218, L500.82210, L500.72119 #### [facility] [address] [place] [address] IRON PANEL Collected: 02/06/2018 Status: F Source: [facility] 9:26 AM [facility] REPOSITORY Order Comment: Kountze: M TYPE CODE TESTS RESULT OUT OF RANGE REFERENCE UNITS LAB L500.69981 65-175 UG/DL Low IRON 44 Result Comment: Patients treated with metal-binding drugs (e.g.deferoxamine) may have depressed iron values, as chelated iron may not properly react in the Siemens iron assay. LAB L500.67070 221-481 UG/DL Normal TIBC 337 LAB L500.40205 30-44 % Low IRON SAT 13 Performed By: #### L500.36032, L500.79310, L500.37692, L500.86169 #### [facility] [address] [place] [address] FERR Collected: 02/06/2018 Status: F Source: [facility] 9:26 AM [facility] REPOSITORY Order Comment: Kountze: M TYPE CODE TESTS RESULT OUT OF RANGE REFERENCE UNITS LAB L500.39625 24.0-388.0 NG/ML Normal FERR 85.6 Performed By: #### L500.08286, L500.65593, L500.80343, L500.94818 #### [facility] [address] [place] [address] PROGRESS Observed: 02/04/2018 Status: COMPLETED Source: [place] 12:54 PM [facility] REPOSITORY HNO ID: [id number] Author: Aditya Eckert (Pastor) Ryan Service: (none) Author Type: Physician Delivery Driver/Customer Service Type: Progress Notes Filed: 02/13/2018 5:29 PM Note Text: 62 year old male with c/o 1. Patient presents for consultation from Dr. Jensen Peguero of [facility] for medical preop clearance. My findings and recommendations will be communicated through this medical record. Upcoming surgery for: right total hip replacement. Has been having persistent and increasing right hip pain with small linear fractures in right hip identifiedalong lines of prior fixation with minesh and screws. 2. In interim, fell and broke left wristplate and [address] Peguero, [facility] in [place], [place]. Healing well 3. Recent pop in right ear a few days go with subsequent near total hearing loss in right ear. 4. Uncontrolled DM2 Taking medication as directed consistently? Yes Medical Issues / Complications: hypertension, hyperlipidemia, peripheral neuropathy and cardiovascular disease Checking blood sugars at home? Yes. 80-130 Watching diet? Yes Physical Activity: Regular Hypoglycemic spells? No Any visual disturbance? No Chest pain? No New numbness, tingling or loss of sensation? No Any recent foot problems, sores or rashes? No Any recent or sudden weight loss? No Any recent illness? No Renal protective agent? Yes ASA daily? Yes Statin therapy? Yes Triglyceride therapy? No Last eye exam: 08/14/16. Last foot exam: 12/08/16. HBA1C: Hemoglobin A1C (%) Date Value 01/31/2018 9.0 08/24/2017 8.9 ) CMP: Glucose 94 01/31/2018 BUN 45 01/31/2018 Creatinine 1.39 01/31/2018 Sodium (I-STAT) 140 01/31/2018 Potassium (I-STAT) 5.5 01/31/2018 Chloride 102 01/31/2018 CO2 25 01/31/2018 Protein, Total 6.8 08/24/2017 Albumin 3.0 08/24/2017 Calcium 8.6 01/31/2018 Alkaline Phosphatase 104 08/24/2017 Bilirubin, Total 0.2 08/24/2017 AST 29 08/24/2017 ALT 29 08/24/2017 Last 2 Encounter Wt Readings: Date: Wt: 02/04/2018 83 kg (183 lb) 09/24/2017 80.3 kg (177 lb) 5. HTN: Current meds: Coreg, Cardura, Lasix, Zaroxolyn Patient is compliant with meds Yes Monitors bp at home: No. If yes, readings: Denies side effects: Yes. Chest pain: No. Dyspnea: Yes. Edema: Yes. Palpitations: No. Syncope: No. Headache: No. Dizziness: No. Last 3 Encounter BP Readings: Date: BP: 02/04/2018 194/78[BP Hank average[ 10/29/2017 175/79 09/24/2017 140/77[ (from Extended Vitals)[ Last 2 Encounter Wt Readings: Date: Wt: 02/04/2018 83 kg (183 lb) 09/24/2017 80.3 kg (177 lb) Anesthesia review: Hx of previous anesthesia problems: No history of adverse event Family hx of anesthesia problems: No. Airway Assessment: MP 1; Neck ROM: Full ROM without neurologic symptoms; Airway Evaluation: No significant abnormalities Symptoms of Sleep Apnea: None Intubation History: No previous history of difficult intubation Dentition: Teeth intact Pertinent history and review: Current signs of infection: No. Chest pain: No. Cardiac history or testin03/14/17 discharged H: acute systolic heart failure. 2-D echocardiography performed on March 12 revealed moderate concentric left ventricular hypertrophy; normal left ventricular size; ejection fraction 35%; global hypokinesia; no valvular lesions; severe pulmonary hypertension with PA pressure 74 mmHg; dilated inferior vena cava. Of note, he had an echo performed in 2009 which revealed normal left the ventricular function and no pulmonary hypertension. Cardiac Regurgitation reveals severe multivessel coronary disease including an eccentric proximal to mid LAD lesion (estimated 60-70%); 85% ostial circumflex artery lesion; 95% mid OM1 lesion; a subtotally occluded posterior descending artery; coronary artery calcification. 04/10/17 3v CABG MACHELLE Casillas to OM, SVG to PDA, SVG to CX 01/28/[address] Nunez/ [facility]. Swelling lower legs secondary to Norvasc. On diuretics for fluid retention. Negative venous Dopplar. CAD stable, asymptomatic. Shortness of breath: No. Pulmonary testing to date: none Known sleep apnea: No. Hx of clotting issues: No. Current bleeding or bruising: No. Additional history of potential concern: PATIENT CAN PERFORM THE FOLLOWING: Do moderate work around the house such as vacuuming, sweeping floors, or carrying in groceries (3.50 METs) PATIENT IS A FUNCTIONAL CLASS: II-III HISTORIES FAMILY HISTORY Problem Relation Age of Onset - Arthritis Mother - Coronary Artery Disease Mother - Diabetes Mother - Heart Mother - Hypertension Mother - Alcohol/Drug Father - Arthritis Father - Heart Father - Hypertension Father PAST MEDICAL HISTORY Diagnosis Date - Ankylosing spondylitis ([facility]) - CAD (coronary artery disease) - Cellulitis - Constipation - Diabetes ([facility]) - Gout - Hx of fracture multiple bones - NSTEMI (non-ST elevated myocardial infarction) ([facility]) 03/12/2017 [facility] admit - Osteoarthritis PAST SURGICAL HISTORY Procedure Laterality Date - CORONARY ARTERY BYPASS GRAFT 04/12/2017 x 3 - HIP SURGERY HX Right pin - KNEE ARTHROSCOPY Left x2 - KNEE SURGERY HX Right TKR, right, arthoscopy x3 - PAST SURGICAL HISTORY OF 09/07/2017 08/15/17 fx radius in 2 places; plate and screws.Plate and screws 09/07/17 Jensen Lykines [facility] - TOE SURGERY HX Right Social History Marital status: Spouse name: Yun Years of education: Number of children: 2 Social History Main Topics Smoking status: Never Smoker Smokeless tobacco: Former User Types: Chew Alcohol use: Yes Comment: seldom Drug use: No Sexual activity: Yes Partners with: Female Other Topics Concern Service No Blood Transfusions No Caffeine Concern No Comment:None Occupational Exposure No Hobby Hazards No Sleep Concern No Stress Concern No Weight Concern Yes Special Diet No Back Care No Exercise No Comment:No formal Bike Helmet No Seat Belt Yes Self-Exams No ACTIVE PROBLEM LIST Uncontrolled Type 2 Diabetes Mellitus Without Complication, With Long-Term Current Use of Insulin (Hcc) Bilateral Low Back Pain Without Sciatica Chronic Constipation 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 Disp: Rfl: doxazosin (CARDURA) 2 mg tablet Take 2 mg by mouth daily at bedtime. Disp: Rfl: metOLAzone (ZAROXOLYN) 2.5 mg tablet Take 2.5 mg by mouth once daily. Disp: Rfl: celecoxib (CELEBREX) 200 mg capsule Take 200 mg by mouth twice daily. Disp: Rfl: insulin detemir U-100 (LEVEMIR FLEXTOUCH U-100 INSULN) 100 unit/mL (3 mL) inpn injection Inject 17 Units subcutaneously daily at bedtime. Disp: 18 mL Rfl: 3 oxyCODONE-acetaminophen (PERCOCET) 5-325 mg tablet Disp: Rfl: 0 HYDROcodone-acetaminophen (NORCO) 5-325 mg per tablet Take 1 tablet by mouth every 8 hours as needed. Disp: Rfl: MULTIVITAMIN/IRON/FOLIC ACID (DAILY MULTI ORAL) Take 2 Each by mouth once daily. Disp: Rfl: lisinopril (ZESTRIL) 40 mg tablet Take 1 tablet by mouth once daily. Disp: 30 tablet Rfl: 1 Tadalafil (CIALIS) 20 mg tab(s) Take 1 tablet by mouth as needed. Disp: 30 tablet Rfl: 5 pravastatin (PRAVACHOL) 80 mg tablet Take 80 mg by mouth once daily. Disp: Rfl: gabapentin (NEURONTIN) 300 mg capsule Take one capsule by mouth twice daily Disp: 180 capsule Rfl: 3 aspirin, enteric coated (ASPIR-81) 81 mg EC tablet Take 1 tablet by mouth once daily. (Patient taking differently: Take 162 mg by mouth once daily.) Disp: 90 tablet Rfl: 3 furosemide (LASIX) 40 mg tablet Take 40 mg by mouth once daily. in am and 20 mg in pm Disp: Rfl: nitroglycerin sublingual (NITROQUICK) 0.4 mg SL tablet Dissolve 1 tablet under the tongue every 5 minutes as needed. Disp: Rfl: 0 latanoprost (XALATAN) 0.005 % ophthalmic solution Use 1 Drop in both eyes daily at bedtime. into affected eye(s). Disp: Rfl: 0 amLODIPine (NORVASC) 2.5 mg tablet Take 1 tablet by mouth once daily. Disp: 30 tablet Rfl: 1 carvedilol (COREG) 3.125 mg tablet Take 1 tablet by mouth twice daily. Disp: Rfl: No current facility-administered medications for this visit. DTAP,TDAP,TD(1 - Tdap) due on 1976 HEPATITIS C SCREENING due on 2001 FECAL OCCULT BLOOD due on 11/06/2007 DIABETIC FOOT EXAM due on 08/14/2017 DILATED RETINAL EXAM due on 12/08/2017 EXAM: BP 180/80 Pulse 64 Temp 36.3 ?C (97.4 ?F) (Tympanic) Resp 20 Wt 83 kg (183 lb) BMI 27.26 kg/m? BP True average: 194/78 Pleasant adult male in no acute distress. Alert and oriented all spheres. Normal affect and cognition. Speech normal. No deficits to learning or comprehension. Skin warm, dry, pink to lips and nailbeds. Normal turgor. Respirations regular and unlabored. HEENT: head normocephallic, atraumatic. PERRLA. EOMI. Sclera clear/ white. TM's clear bilaterally. Insufflates bilaterally. Alexander-Rhinne' show no lateralization, AC< BC on right. Nose and oropharynx free from injection or lesion. Natural teeth in good repair. Normal tongue ROM. Mallampati 1/4. Normal jaw angle. FROM neck without pain. No cervical lymph nodes. Thyroid non-tender, no masses Chest CTA. HRRR without murmur or gallop.chest wall with mid sternotomy scar. Well healed. Abdomen: active bowel sounds throughout, soft, nontender, no masses or organomegaly. No CVAT. Extrem: no clubbing, cyanosis, 0-1/4+ pitting edema lower third bilateral lower legs. Distal pulses 2+/4, prompt capillary refill. Compression stockings removed and replaced. Extremities are warm and pink with prompt capillary refill. ASSESSMENT/PLAN: addended February 13, 2018 1. Preoperative clearance - ICD9: V72.84, ICD10: Z01.818 (primary diagnosis) Thank you Dr. Peguero for this consult and the opportunity to participate in the care of this patient. I have asked for cardiac clearance from his primary financial data analyst Dr. Chacon which was granted 02/06/18. He is cleared for surgery with moderate risk due to anemia with hgb 9.8, uncontrolled hypertension as above, diabetes uncontrolled with a1c 9% and stage 3a renal insufficiency. He has tolerated two other significant surgeries in the last 5 months. I have schedule rechecks on his CBC and BMP for 02/13/18. Please contact me if you have any questions. - CONSULT TO CARDIOLOGY (completed) 2. Uncontrolled type 2 diabetes mellitus without complication, with long-term current use of insulin (HCC) - ICD9: 250.02, V58.67, ICD10: E11.65, Z79.4 uncontrolled - Increase Levemir to 20u, Follow fasting and 2h PC evening meal blood sugars x 5 days and call or My Chart results. 3. Arteriosclerotic heart disease (ASHD) - ICD9: 414.00, ICD10: I25.[address] Chacon, (see above) 4. Hypertension, essential - ICD9: 401.9, ICD10: I10 - poor control Referral to Dr. Chacon who is managing. 5. Lower leg edema - ICD9: 782.3, ICD10: R60.0 Stable venous stasis. Mild increase in weight. Will need to follow. 6. Acute hearing loss, right - ICD9: 389.9, ICD10: H91.91 Urgent referral to ENT - CONSULT TO ENT PASTOR White Observed: 02/04/2018 Status: COMPLETED Source: [place] 11:40 AM [facility] REPOSITORY Office Visit (FAMPWS) MAURI QUINONES ([id number]) 1955 Aditya Date Time Provider Department 02/04/18 11:40 AM Aditya DAVIS) FAMPWS During your visit today, we recorded the following information about you: Temperature Pulse Respiration Blood pressure 97.4 degrees 50/minute 20/minute 194/78 Weight 83 kg M Ghassan Davis PA-C 02/13/2018 5:29 PM Signed 62 year old male with c/o 1. Patient presents for consultation from Dr. Jensen Peguero of [facility] for medical preop clearance. My findings and recommendations will be communicated through this medical record. Upcoming surgery for: right total hip replacement. Has been having persistent and increasing right hip pain with small linear fractures in right hip identifiedalong lines of prior fixation with minesh and screws. 2. In interim, fell and broke left wristplate and [address] Peguero, [facility] in [place], [place]. Healing well 3. Recent pop in right ear a few days go with subsequent near total hearing loss in right ear. 4. Uncontrolled DM2 Taking medication as directed consistently? Yes Medical Issues / Complications: hypertension, hyperlipidemia, peripheral neuropathy and cardiovascular disease Checking blood sugars at home? Yes. 80-130 Watching diet? Yes Physical Activity: Regular Hypoglycemic spells? No Any visual disturbance? No Chest pain? No New numbness, tingling or loss of sensation? No Any recent foot problems, sores or rashes? No Any recent or sudden weight loss? No Any recent illness? No Renal protective agent? Yes ASA daily? Yes Statin therapy? Yes Triglyceride therapy? No Last eye exam: 08/14/16. Last foot exam: 12/08/16. HBA1C: Hemoglobin A1C (%) Date Value 01/31/2018 9.0 08/24/2017 8.9 ) CMP: Glucose 94 01/31/2018 BUN 45 01/31/2018 Creatinine 1.39 01/31/2018 Sodium (I-STAT) 140 01/31/2018 Potassium (I-STAT) 5.5 01/31/2018 Chloride 102 01/31/2018 CO2 25 01/31/2018 Protein, Total 6.8 08/24/2017 Albumin 3.0 08/24/2017 Calcium 8.6 01/31/2018 Alkaline Phosphatase 104 08/24/2017 Bilirubin, Total 0.2 08/24/2017 AST 29 08/24/2017 ALT 29 08/24/2017 Last 2 Encounter Wt Readings: Date: Wt: 02/04/2018 83 kg (183 lb) 09/24/2017 80.3 kg (177 lb) 5. HTN: Current meds: Coreg, Cardura, Lasix, Zaroxolyn Patient is compliant with meds Yes Monitors bp at home: No. If yes, readings: Denies side effects: Yes. Chest pain: No. Dyspnea: Yes. Edema: Yes. Palpitations: No. Syncope: No. Headache: No. Dizziness: No. Last 3 Encounter BP Readings: Date: BP: 02/04/2018 194/78[BP Hank average[ 10/29/2017 175/79 09/24/2017 140/77[ (from Extended Vitals)[ Last 2 Encounter Wt Readings: Date: Wt: 02/04/2018 83 kg (183 lb) 09/24/2017 80.3 kg (177 lb) Anesthesia review: Hx of previous anesthesia problems: No history of adverse event Family hx of anesthesia problems: No. Airway Assessment: MP 1; Neck ROM: Full ROM without neurologic symptoms; Airway Evaluation: No significant abnormalities Symptoms of Sleep Apnea: None Intubation History: No previous history of difficult intubation Dentition: Teeth intact Pertinent history and review: Current signs of infection: No. Chest pain: No. Cardiac history or testin03/14/17 discharged [facility]: acute systolic heart failure. 2- D echocardiography performed on March 12 revealed moderate concentric left ventricular hypertrophy; normal left ventricular size; ejection fraction 35%; global hypokinesia; no valvular lesions; severe pulmonary hypertension with PA pressure 74 mmHg; dilated inferior vena cava. Of note, he had an echo performed in 2009 which revealed normal left the ventricular function and no pulmonary hypertension. Cardiac Regurgitation reveals severe multivessel coronary disease including an eccentric proximal to mid LAD lesion (estimated 60-70%); 85% ostial circumflex artery lesion; 95% mid OM1 lesion; a subtotally occluded posterior descending artery; coronary artery calcification. 04/10/17 3v CABG MACHELLE Casillas to OM, SVG to PDA, SVG to CX 01/28/[address] Nunez/ [facility]. Swelling lower legs secondary to Norvasc. On diuretics for fluid retention. Negative venous Dopplar. CAD stable, asymptomatic. Shortness of breath: No. Pulmonary testing to date: none Known sleep apnea: No. Hx of clotting issues: No. Current bleeding or bruising: No. Additional history of potential concern: PATIENT CAN PERFORM THE FOLLOWING: Do moderate work around the house such as vacuuming, sweeping floors, or carrying in groceries (3.50 METs) PATIENT IS A FUNCTIONAL CLASS: II-III HISTORIES FAMILY HISTORY Problem Relation Age of Onset - Arthritis Mother - Coronary Artery Disease Mother - Diabetes Mother - Heart Mother - Hypertension Mother - Alcohol/Drug Father - Arthritis Father - Heart Father - Hypertension Father PAST MEDICAL HISTORY Diagnosis Date - Ankylosing spondylitis (HCC) - CAD (coronary artery disease) - Cellulitis - Constipation - Diabetes ([facility]) - Gout - Hx of fracture multiple bones - NSTEMI (non-ST elevated myocardial infarction) ([facility]) 03/12/2017 [facility] admit - Osteoarthritis PAST SURGICAL HISTORY Procedure Laterality Date - CORONARY ARTERY BYPASS GRAFT 04/12/2017 x 3 - HIP SURGERY HX Right pin - KNEE ARTHROSCOPY Left x2 - KNEE SURGERY HX Right TKR, right, arthoscopy x3 - PAST SURGICAL HISTORY OF 09/07/2017 08/15/17 fx radius in 2 places; plate and screws.Plate and screws 09/07/17 Jensen Lykines [facility] - TOE SURGERY HX Right Social History Marital status: Spouse name: Yun Years of education: Number of children: 2 Social History Main Topics Smoking status: Never Smoker Smokeless tobacco: Former User Types: Chew Alcohol use: Yes Comment: seldom Drug use: No Sexual activity: Yes Partners with: Female Other Topics Concern Service No Blood Transfusions No Caffeine Concern No Comment:None Occupational Exposure No Hobby Hazards No Sleep Concern No Stress Concern No Weight Concern Yes Special Diet No Back Care No Exercise No Comment:No formal Bike Helmet No Seat Belt Yes Self-Exams No ACTIVE PROBLEM LIST Uncontrolled Type 2 Diabetes Mellitus Without Complication, With Long-Term Current Use of Insulin ([facility]) Bilateral Low Back Pain Without Sciatica Chronic Constipation 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 Disp: Rfl: doxazosin (CARDURA) 2 mg tablet Take 2 mg by mouth daily at bedtime. Disp: Rfl: metOLAzone (ZAROXOLYN) 2.5 mg tablet Take 2.5 mg by mouth once daily. Disp: Rfl: celecoxib (CELEBREX) 200 mg capsule Take 200 mg by mouth twice daily. Disp: Rfl: insulin detemir U-100 (LEVEMIR FLEXTOUCH U-100 INSULN) 100 unit/mL (3 mL) inpn injection Inject 17 Units subcutaneously daily at bedtime. Disp: 18 mL Rfl: 3 oxyCODONE-acetaminophen (PERCOCET) 5-325 mg tablet Disp: Rfl: 0 HYDROcodone-acetaminophen (NORCO) 5-325 mg per tablet Take 1 tablet by mouth every 8 hours as needed. Disp: Rfl: MULTIVITAMIN/IRON/FOLIC ACID (DAILY MULTI ORAL) Take 2 Each by mouth once daily. Disp: Rfl: lisinopril (ZESTRIL) 40 mg tablet Take 1 tablet by mouth once daily. Disp: 30 tablet Rfl: 1 Tadalafil (CIALIS) 20 mg tab(s) Take 1 tablet by mouth as needed. Disp: 30 tablet Rfl: 5 pravastatin (PRAVACHOL) 80 mg tablet Take 80 mg by mouth once daily. Disp: Rfl: gabapentin (NEURONTIN) 300 mg capsule Take one capsule by mouth twice daily Disp: 180 capsule Rfl: 3 aspirin, enteric coated (ASPIR-81) 81 mg EC tablet Take 1 tablet by mouth once daily. (Patient taking differently: Take 162 mg by mouth once daily.) Disp: 90 tablet Rfl: 3 furosemide (LASIX) 40 mg tablet Take 40 mg by mouth once daily. in am and 20 mg in pm Disp: Rfl: nitroglycerin sublingual (NITROQUICK) 0.4 mg SL tablet Dissolve 1 tablet under the tongue every 5 minutes as needed. Disp: Rfl: 0 latanoprost (XALATAN) 0.005 % ophthalmic solution Use 1 Drop in both eyes daily at bedtime. into affected eye(s). Disp: Rfl: 0 amLODIPine (NORVASC) 2.5 mg tablet Take 1 tablet by mouth once daily. Disp: 30 tablet Rfl: 1 carvedilol (COREG) 3.125 mg tablet Take 1 tablet by mouth twice daily. Disp: Rfl: No current facility-administered medications for this visit. DTAP,TDAP,TD(1 - Tdap) due on 1976 HEPATITIS C SCREENING due on 2001 FECAL OCCULT BLOOD due on 11/06/2007 DIABETIC FOOT EXAM due on 08/14/2017 DILATED RETINAL EXAM due on 12/08/2017 EXAM: BP 180/80 Pulse 64 Temp 36.3 ?C (97.4 ?F) (Tympanic) Resp 20 Wt 83 kg (183 lb) BMI 27.26 kg/m? BP True average: 194/78 Pleasant adult male in no acute distress. Alert and oriented all spheres. Normal affect and cognition. Speech normal. No deficits to learning or comprehension. Skin warm, dry, pink to lips and nailbeds. Normal turgor. Respirations regular and unlabored. HEENT: head normocephallic, atraumatic. PERRLA. EOMI. Sclera clear/ white. TM's clear bilaterally. Insufflates bilaterally. Alexander-Rhinne' show no lateralization, AC< BC on right. Nose and oropharynx free from injection or lesion. Natural teeth in good repair. Normal tongue ROM. Mallampati 1/4. Normal jaw angle. FROM neck without pain. No cervical lymph nodes. Thyroid non-tender, no masses Chest CTA. HRRR without murmur or gallop.chest wall with mid sternotomy scar. Well healed. Abdomen: active bowel sounds throughout, soft, nontender, no masses or organomegaly. No CVAT. Extrem: no clubbing, cyanosis, 0-1/4+ pitting edema lower third bilateral lower legs. Distal pulses 2+/4, prompt capillary refill. Compression stockings removed and replaced. Extremities are warm and pink with prompt capillary refill. ASSESSMENT/PLAN: addended February 13, 2018 1. Preoperative clearance - ICD9: V72.84, ICD10: Z01.818 (primary diagnosis) Thank you Dr. Peguero for this consult and the opportunity to participate in the care of this patient. I have asked for cardiac clearance from his primary financial data analyst Dr. Chacon which was granted 02/06/18. He is cleared for surgery with moderate risk due to anemia with hgb 9.8, uncontrolled hypertension as above, diabetes uncontrolled with a1c 9% and stage 3a renal insufficiency. He has tolerated two other significant surgeries in the last 5 months. I have schedule rechecks on his CBC and BMP for 02/13/18. Please contact me if you have any questions. - CONSULT TO CARDIOLOGY (completed) 2. Uncontrolled type 2 diabetes mellitus without complication, with long-term current use of insulin (HCC) - ICD9: 250.02, V58.67, ICD10: E11.65, Z79.4 uncontrolled - Increase Levemir to 20u, Follow fasting and 2h PC evening meal blood sugars x 5 days and call or My Chart results. 3. Arteriosclerotic heart disease (ASHD) - ICD9: 414.00, ICD10: I25.10 [address]ymptomatic[address] Follow[address] with Dr. Chacon, (see above) 4. Hypertension, essential - ICD9: 401.9, ICD10: I10 - poor control Referral to Dr. Chacon who is managing. 5. Lower leg edema - ICD9: 782.3, ICD10: R60.0 Stable venous stasis. Mild increase in weight. Will need to follow. 6. Acute hearing loss, right - ICD9: 389.9, ICD10: H91.91 Urgent referral to ENT - CONSULT TO ENT Aditya Davis PA-C Referring Provider: Aditya DAVIS (PASTOR) [[id number]] Allergies As of Date: 02/04/2018 Noted Allergy Reaction LYRICA (PREGABALIN) 03/23/2017 7 - Swelling Date Reviewed: 02/04/2018 Reviewed by: Caryn Simpson LPN - Fully Assessed Reason for Visit: Results [95] Medical Clearance [1983] Cmt: hip replacement Primary Visit Diagnosis:Preoperative clearance [Z01.818] Other Visit Diagnoses:Uncontrolled type 2 diabetes mellitus without complication, with long-term current use of insulin (HCC) [E11.65, Z79.4] Arteriosclerotic heart disease (ASHD) [I25.10] Hypertension, essential [I10] Lower leg edema [R60.0] Acute hearing loss, right [H91.91] Order(s):gabapentin (NEURONTIN) 300 mg capsuleTake 1 capsule by mouth twice daily.Disp: 180 capsuleRfl: 3 insulin detemir U-100 (LEVEMIR FLEXTOUCH U-100 INSULN) 100 unit/mL (3 mL) inpn injectionInject 20 Units subcutaneously daily at bedtime.Disp: 18 mLRfl: 3 CONSULT TO CARDIOLOGY [9004] Order #: [id number]: 1 CONSULT TO ENT [9008] Order #: [id number]: 1 doxazosin (CARDURA) 2 mg tabletTake 1 tablet by mouth twice daily as needed.Disp: 60 tabletRfl: 2 Prescriptions as of 02/04/2018 Sig: CARVEDILOL 25 MG TABLET Take 25 mg by mouth twice rafita* METOLAZONE 2.5 MG TABLET Take 2.5 mg by mouth once rafita* CELECOXIB 200 MG CAPSULE Take 200 mg by mouth twice da* GABAPENTIN 300 MG CAPSULE Take 1 capsule by mouth twice* INSULIN DETEMIR (U-100) 100 U* Inject 20 Units subcutaneousl* DOXAZOSIN 2 MG TABLET Take 1 tablet by mouth twice * OXYCODONE-ACETAMINOPHEN 5 MG-* HYDROCODONE 5 MG-ACETAMINOPHE* Take 1 tablet by mouth every * DAILY MULTI ORAL Take 2 Each by mouth once rafita* LISINOPRIL 40 MG TABLET Take 1 tablet by mouth once d* TADALAFIL 20 MG TABLET Take 1 tablet by mouth as nee* PRAVASTATIN 80 MG TABLET Take 80 mg by mouth once jagdeep* ASPIRIN 81 MG TABLET,DELAYED * Take 1 tablet by mouth once d* Patient taking differently: Take 162 mg by mouth once rafita* FUROSEMIDE 40 MG TABLET Take 40 mg by mouth once jagdeep* NITROGLYCERIN 0.4 MG SUBLINGU* Dissolve 1 tablet under the t* LATANOPROST 0.005 % EYE DROPS Use 1 Drop in both eyes daily* Problem List As Of Date 02/04/2018 Noted Resolved Uncontrolled type 2 diabetes mellitus without c*INVALID FOR* More... 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 Hypertension, essential [I10] INVALID FOR* Lower leg edema [R60.0] INVALID FOR* More... Prescriptions ordered this encounter Disp Refills Start End GABAPENTIN 300 MG CAPSULE 180 * 3 02/04/2018 02/04/2019 Route: ORAL Sig: Take 1 capsule by mouth twice daily. INSULIN DETEMIR (U-100) 100 UNIT/ML * 18 mL 3 02/04/2018 03/06/2018 Class: Med Update Cmt: Patient prefers to stay on the Levemir. Please cancel the Tresiba. Route: SUBCUTANEOUS Sig: Inject 20 Units subcutaneously daily at bedtime. DOXAZOSIN 2 MG TABLET 60 t* 2 02/04/2018 Route: ORAL Sig: Take 1 tablet by mouth twice daily as needed. Medications Discontinued During This Encounter insulin detemir U-100 (LEVEMIR FLEXT* 18 mL 3 11/08/2017 02/04/2018 Cmt: Patient prefers to stay on the Levemir. Please cancel the Tresiba. Route: SUBCUTANEOUS Sig: Inject 17 Units subcutaneously daily at bedtime. Disc: Reason for discontinue is not on file. gabapentin (NEURONTIN) 300 mg capsule 180 * 3 03/27/2017 02/04/2018 Sig: Take one capsule by mouth twice daily Disc: Reason for discontinue is not on file. carvedilol (COREG) 3.125 mg tablet 08/21/2017 02/04/2018 Class: Med Update Route: ORAL Sig: Take 1 tablet by mouth twice daily. Disc: Changing Therapy/Dosage Form amLODIPine (NORVASC) 2.5 mg tablet 30 t* 1 10/23/2017 02/04/2018 Route: ORAL Sig: Take 1 tablet by mouth once daily. Disc: Changing Therapy/Dosage Form doxazosin (CARDURA) 2 mg tablet 02/04/2018 Class: Historical Med Route: ORAL Sig: Take 2 mg by mouth daily at bedtime. Disc: Reason for discontinue is not on file. Disposition: Return in about 3 months (around 05/07/2018). Follow-up and Disposition History Recorded Encounter Status:Closed by Aditya DAVIS PA-C on 02/13/18 BASIC METABOLIC Collected: 02/04/2018 Status: F Source: [place] PROFILE (BMP) 10:18 AM [facility] REPOSITORY Order Comment: Order Date: 07/11/17 Order Info: [id number] - *BMP Comments: Reason: TYPE CODE TESTS RESULT OUT OF RANGE REFERENCE UNITS LAB L501.0100 74-106 mg/dL High GLU 118 Result Comment: Fasting Glucose result from 100 to 125 mg/dL suggests IMPAIRED HOMEOSTASIS per A.D.A. criteria. Please note revised GLUCOSE reference range effective 2017. LAB L501.1000 7-18 mg/dL High BUN 45 LAB L501.1100 0.70-1.30 mg/dL Normal CREAT,SERUM 1.28 Result Comment: The validity of the calculated GFR AND GFRAA in patients over 70 years has not been determined. Clinical correlation is essential. LAB L501.1110 >60 mL/min Normal EST GFR 61 Result Comment: Non- GFR Calc LAB L501.1115 >60 mL/min Normal EST GFR - AA 74 Result Comment: GFR Calc LAB L501.1300 10-20 RATIO High BUN/CRE 35.2 LAB L501.2200 8.5-10.1 mg/dL Low CA 8.3 LAB L501.5300 136-145 mmol/L NA Normal 138 LAB L501.5600 3.5-5.1 mmol/L K Normal 4.9 LAB L501.5900 98-107 mmol/L CL Normal 104 LAB L501.6100 21.0-32.0 mmol/L Normal CO2 30.0 LAB L501.6200 5-15 Low GAP 4 Performed By: #### L500.2500 #### [facility] [address]. [place], [place], [address] ALBUMIN/CREAT RATIO Collected: 01/31/2018 Status: F Source: [place] 8:37 AM [facility] REPOSITORY TYPE CODE TESTS RESULT OUT OF REFERENCE UNITS RANGE LAB UCRR 20-300 mg/dL Creatinine,Ur 67.3 ine,Ran LAB UALBR 0.0-23.0 mg/L High Albumin Urine 2065.1 Random LAB UALBCR 0-30 mg/g High Albumin/Creat 3068 Ratio Result Comment: 30 to 300 mg/g indicates an increased risk for diabetic nephropathy. Greater than 300 mg/g is consistent with clinical nephropathy. (Am J Kidney Disease 1995, 25:107) Performed By: #### UACR #### [facility] [address] [place], [place] [address] BASIC METABOLIC PANL Collected: 01/31/2018 Status: F Source: [place] 8:23 AM [facility] REPOSITORY TYPE CODE TESTS RESULT OUT OF REFERENCE UNITS RANGE LAB GLU 74-99 mg/dL Glucose 94 Result Comment: The [place] Diabetes Association (ADA) provides guidance for cutoff values for fasting glucose and random glucose. The ADA defines fasting as no caloric intake for at least 8 hours. Fas ting plasma glucose results between 100 to 125 mg/dL indicate increased risk for diabetes (prediabetes). Fasting plasma glucose results greater than or equal to 126 mg/dL meet the criteria for diagnosis of diabetes. In the absence of unequivocal hyperglycemia, results should be confirmed by repeat testing. In a patient with classic symptoms of hyperglycemia or hyperglycemic crisis, random plasma glucose results greater than or equal to 200 mg/dL meet the criteria for diagnosis of diabetes. Reference: Standards of Medical Care in Diabetes 2016, [place] Diabetes Association. Diabetes Care. 2016.39(Suppl 1). LAB BUN 9-24 mg/dL BUN High 45 LAB CRET 0.73-1.22 mg/dL Creatinine High 1.39 LAB NA 136-144 mmol/L Sodium 140 LAB K 3.7-5.1 mmol/L Potassium High 5.5 LAB CL 97-105 mmol/L Chloride 102 LAB CO2 22-30 mmol/L CO2 25 LAB AGAP 9-18 mmol/L Anion Gap 13 LAB CA 8.5-10.2 mg/dL Calcium, Total 8.6 LAB GFRAA eGFR- Amer. >60 LAB GFRNAA . eGFR-All Other Races 52 Result Comment: eGFR (Estimated GFR) Units of measure: mL/min/1.73 meters squared eGFR is derived from the reexpressed MDRD Study equation using the following parameters: serum creatinine, age, gender and race. The creatinine assay has been calibrated to be traceable to IDMS. An eGFR <60 mL/min/1.73m2 for >3 months is consistent with chronic kidney disease. Refer to KDOQI guidelines for clinical interpretation. In patients with unstable renal function, e.g. those with acute kidney injury, the eGFR may not accurately reflect actual GFR. Performed By: #### BMP, HBA1C #### [facility] [employer] [address] [place], [place] [address] HEMOGLOBIN A1C Collected: 01/31/2018 Status: F Source: [place] 8:23 AM [facility] REPOSITORY TYPE CODE TESTS RESULT OUT OF REFERENCE UNITS RANGE LAB HGBA1C 4.3-5.6 % High Hemoglobin A1c 9.0 LAB HBA0 mg/dL Est. Average Glucose 212 Result Comment: eAG: (Estimated average glucose) is a calculated value from HgbA1c and is patient representative of the average blood glucose level in the last 2-3 month period. Performed By: #### BMP, HBA1C #### [facility] [address] [place], [place] [address] CARDIOLOGY VISIT Observed: 01/16/2018 Status: F Source: [place] REPORT 5:10 PM [facility] REPOSITORY [facility] [address] [place] [address] OFFICE VISIT Date of Service: 01/15/18 MR#: [id number] Acct: [id number] Name: MAURI QUINONES Rep #: [id number] : 1955 Provider: Florencia Brian Age/Sex: 62/M Location: [facility] Status: Signed HPI HPI Details: MAURI QUINONES, is a 62 M who presents to the office today for an urgent follow-up for lower extremity edema. He was in the office a few weeks ago with similar concerns. We have been adjusting his medication to try and help with this. He has a history of coronary artery disease status post bypass surgery with a CARTY to LAD, SVG to the OM system and SVG to the PDA in March 2017 at [facility], postoperative ventricular tachycardia requiring resuscitation after bypass surgery, valvular heart disease, cardiomyopathy, congestive heart failure, pulmonary hypertension, and diabetes mellitus. Pt sts that his edema improved when we stopped his norvasc, but returned when we resumed at a small dose. He does not have any more SOB with exertion. He sts that his swelling started about 4 weeks ago. He now notes that his legs are painful. Swelling in his left leg is normal from his surgery, his right leg is newer over the last 4 weeks. Intake Vital Signs01/15/18 Height 5 ft 10 in 01/15/18 Weight: 186 lb 01/15/18 Body Mass Index (BMI) 26.6 01/15/18 Blood Pressure 150/60 01/15/18 Blood Pressure Location Lt brachial Intake Visit Reasons: Edema (per LL) [employer] Lab Technician Required: No Accompanied by: Is patient in pain?: Yes (right hip discomfort) Pain scale (1-10): 5 Allergies pregabalin [From Lyrica] Allergy (Verified 01/15/18 13:59) Angioedema Medications Gabapentin [Neurontin] 300 mg PO BID 03/12/17 [History Confirmed 01/15/18] Insulin Detemir [Levemir FlexPen] 10 - 16 units SC QHS 03/12/17 [History Confirmed 01/15/18] Latanoprost 0.005% [Xalatan Opthalmic] 1 drp EACH EYE DAILY 03/12/17 [History Confirmed 01/15/18] Nitroglycerin [Nitrostat] 0.4 mg SUBLINGUAL Q5M PRN #10 tab 03/14/17 [Rx Confirmed 01/15/18] Celecoxib [Celebrex] 200 mg PO 06/04/17 [History Confirmed 01/15/18] Hydrocodone/Acetaminophen [Acme 5-325 Tablet] 06/04/17 [History Confirmed 01/15/18] Insulin Detemir [Levemir] 100 unit SQ 06/04/17 [History Confirmed 01/15/18] Insulin Lispro [Humalog] 100 unit SQ 06/04/17 [History Confirmed 01/15/18] Blood Pressure Cuff #1 ea 08/21/17 [Rx] aspirin 81 mg tablet,delayed release 81 mg PO BID #180 tab 08/23/17 [Rx Confirmed 01/15/18] pravastatin 80 mg tablet 80 mg PO QHS #90 tab 08/23/17 [Rx Confirmed 01/15/18] tadalafil 20 mg tablet 20 mg PO PRN 08/23/17 [History Confirmed 01/15/18] Handicap Placard #1 ea 09/04/17 [Rx Confirmed 01/15/18] lisinopril 40 mg tablet 40 mg PO QDAY #90 tab 11/14/17 [Rx Confirmed 01/15/18] carvedilol 25 mg tablet 25 mg PO BID #180 tab 12/19/17 [Rx Confirmed 01/15/18] amlodipine 2.5 mg tablet 2.5 mg PO QDAY #90 tab 01/08/18 [Rx Confirmed 01/15/18] doxazosin 2 mg tablet 2 mg PO QDAY #30 tab 01/11/18 [Rx Confirmed 01/15/18] furosemide 40 mg tablet 40 mg PO QDAY 01/11/18 [History Confirmed 01/15/18] Ejection fraction %: 45 to 49 (45% per echo 08/14/2017 at [facility] Medical History HTN (hypertension) (Chronic) Ventricular tachyarrhythmia (Chronic) Atherosclerosis of [place] coronary artery of [place] heart without angina pectoris (Chronic) DM2 (diabetes mellitus, type 2) (Chronic) Gout (Chronic) Diabetes mellitus with neuropathy (Chronic) Abscess of right foot (Chronic) CHF (congestive heart failure) (Chronic) NSTEMI (non-ST elevated myocardial infarction) (Chronic) Valvular heart disease (Chronic) Cardiomyopathy (Chronic) Pulmonary HTN (Chronic) Acute systolic heart failure (Chronic) Biliary pleural effusion (Chronic) Bradycardia (Chronic) Surgical History Hx of CABG (Chronic) History of open reduction and internal fixation (ORIF) procedure (Acute) Hx of arthroscopy (Chronic) hx femur surgery (Chronic) Family History Father CAD (coronary artery disease) Mother CAD (coronary artery disease) Social History Smoking Status: Former smoker alcohol intake: never substance use type: does not use caffeine: Yes Type: carbonated beverages Number of servings: 4 what type of physical activity do you participate in: none seatbelt use: always do you feel safe at home: Yes ROS Const Const: Negative for weakness, fatigue, fever(s) or headache(s) Eyes Eyes: Negative for blind spots, loss of peripheral vision or transient loss of vision ENT ENT: Negative for headache(s), dizziness, tinnitus or Nosebleed/epistaxis Cardio Chest Pain: No Palpitations: No Edema: Bilateral Muscle aches with walking: None Resp Respiratory: Negative for SOB with activity, SOB at rest, SOB orthopnea\SOB lying down or Cough GI GI: Negative nausea, vomiting, heartburn or vomiting blood/hematemesis : Negative for hematuria Musc Musc: Negative for muscle aches/ myalgia Neuro Neuro: Negative for weakness, headache(s), dizziness, near syncope, syncope, lightheadedness or orthostatic symptoms Edward Hematologic/Lymphatic: Negative for easy bleeding Endo Endo: Negative for fatigue Supplemental Info Echocardiogram from July 2017 showed estimated ejection fraction 45%, mildly dilated left ventricle, mild concentric LVH, mildly enlarged left atrium, mildly enlarged right atrium, mild diffuse mitral thickening, trivial mitral valve insufficiency, trivial tricuspid valve insufficiency, aortic sclerosis, no stenosis, trivial aortic valve insufficiency, calcified aortic root, RVSP of 41 mmHg, and diastolic dysfunction. Heart catheterization from February 2017 showed elevated LVEDP DP, moderately to severely elevated right heart pressures, ejection fraction of 30%, and [place] multivessel coronary artery disease. Left main coronary artery had 25% stenosis, mid LAD had 50-75% stenosis, ostial circumflex had 85% stenosis, OM1 had 95% stenosis, and right PDA was subtotally occluded. He was referred to tertiary care center for bypass surgery. Assessment AND Plan 1. Atherosclerosis of [place] coronary artery of [place] heart without angina pectoris I25.10 S/P surgery with CARTY to LAD, SVG to OM system, and SVG to PDA in March 2017 at [facility]; Plan Stable, from a cardiac standpoint patient does not have any symptoms of angina. We recommend that they continue with current aggressive medical management and risk factor modification. 2. Essential hypertension I10 Plan Blood pressure has been elevated however feel that part of this could also be anxiety related. Will have him monitor his blood pressure readings closely at home. We will then adjust accordingly at his next office visit. 3. Cardiomyopathy, unspecified type I42.9 Plan Patient does not have any symptoms of congestive heart failure. Do not feel that his lower extremity edema is related to his congestive heart failure. We will have him hold his Norvasc. 4. Localized edema R60.0 Plan With pain in his leg and swelling will obtain a DVT ultrasound. If this is negative we will have him hold his Norvasc. He will monitor his blood pressure readings. We will then evaluate the accuracy of his cuff and his blood pressure readings at his next office visit and adjust medications accordingly. Plan Detail Other Orders Orders: Other Medications On Hold: Additional Comments Thank you for allowing us to participate in patient's plan of care, if you have any questions please do not hesitate to call. This note was generated using a voice recognition system and there may be incorrect words, spelling or punctuation errors that were not noted when reviewing the office note prior to saving. Follow Up 6 Weeks (MMM) Coding Level of Care Code Off vis,est,level 4 Diagnoses Atherosclerosis of [place] coronary artery of [place] heart without angina pectoris I25.10 Essential hypertension I10 Hypertension type: essential hypertension Cardiomyopathy, unspecified type I42.9 Cardiomyopathy type: unspecified Localized edema R60.0 Edema type: localized Coding Level of Care Code Off vis,est,level 4 Diagnoses Atherosclerosis of [place] coronary artery of [place] heart without angina pectoris I25.10 Essential hypertension I10 Hypertension type: essential hypertension Cardiomyopathy, unspecified type I42.9 Cardiomyopathy type: unspecified Localized edema R60.0 Edema type: localized 01/16/18 1710 <Electronically signed by Florencia GAGNON> Date Florencia GAGNON Cosigner Signature: Date (if applicable) CC: Aditya Davis VENOUS DUPLEX LOWER Observed: 01/16/2018 Status: F Source: [place] EXTREMITY 4:04 PM [facility] REPOSITORY [facility] Cardiovascular Services [address] [place] [address] Venous Duplex US - Arnaud Extrem 01/15/18 1454 MR#: [id number] Acct: [id number] Name: MAURI QUINONES Rep #: [id number] : 1955 62 From: Vadim Ferrell MD Attending Dr: Florencia Brian Status: REG CLI Ordering Dr: Florencia Brian Date: 01/15/18 Location: [facility] Sex: M C Admitted: Reason For Study: pain RIGHT LEFT GSV is normal. GSV is normal. CFV is compressible, spontaneous, phasic, CFV is compressible, spontaneous, phasic, competent and demonstrates normal competent, and demonstrates normal augmentation. augmentation. FV is compressible, spontaneous, phasic, FV is compressible, spontaneous, phasic, competent and demonstrates normal competent and demonstrates normal augmentation. augmentation. POP V is compressible, spontaneous, phasic, POP V is compressible, spontaneous, phasic, competent and demonstrates normal competent and demonstrates normal augmentation. augmentation. T/P Trunk is compressible. T/P Trunk is compressible. PTV is compressible. PTV is compressible. RT PerV is compressible. LT PerV is compressible. Procedure Exam performed in department. The exam was diagnostic. A preliminary report was called and/or faxed to [facility]. Interpretation Summary Deep veins of the lower extremities are bilaterally patent and compressible segmentally. There is no evidence of deep vein thrombosis on either side. Valvular competence appears intact within the proximal deep venous systems bilaterally. The greater saphenous veins appear bilaterally patent and compressible segmentally. Ordering Physician: Florencia Brian Performed By: Solitario Pagan, RVT 01/16/18 1603 Date Vadim Ferrell MD CC: Aditya Davis; Florencia Brian Date Dictated: 01/15/18 1454 Date Transcribed: 01/16/18 160 Arc Welder Apprentice: Signed CARDIOLOGY VISIT Observed: 12/19/2017 Status: F Source: [place] REPORT 8:18 PM [facility] REPOSITORY [facility] [address] [place] [address] OFFICE VISIT Date of Service: 12/19/17 MR#: [id number] Acct: [id number] Name: MAURI QUINONES Rep #: [id number] : 1955 Provider: HARPAL Larkin Age/Sex: 62/M Location: [facility] Status: Signed HPI HPI Details: MAURI QUINONES, is a 62 M who presents to the office today for a cardiovascular outpatient follow-up. He has a history of coronary artery disease status post bypass surgery with a CARTY to LAD, SVG to the OM system and SVG to the PDA in March 2017 at [facility], postoperative ventricular tachycardia requiring resuscitation after bypass surgery, valvular heart disease, cardiomyopathy, congestive heart failure, pulmonary hypertension, and diabetes mellitus. Patient presents today for further evaluation of lower extremity edema in which he has increased his Lasix for, but has not completely resolved. Pt. denies chest, arm, jaw, or neck discomfort. His exercise tolerance is stable. Pt. denies symptoms of CHF, palpitations, lightheadedness, dizziness, near syncope, or syncopal episodes. Pt. denies claudication issues. Pt. denies orthopnea, PND, fever, chills, blood in urine, blood in stool, myalgia, or unexplainable fatigue. Intake Vital Signs12/19/17 Height 5 ft 10 in 12/19/17 Weight: 187 lb 12/19/17 Body Mass Index (BMI) 26.8 12/19/17 Blood Pressure 158/82 Intake Visit Reasons: lt lower leg swelling [employer] Lab Technician Required: No Accompanied by: Is patient in pain?: No Allergies pregabalin [From Lyrica] Allergy (Verified 12/19/17 14:32) Angioedema Medications Gabapentin [Neurontin] 300 mg PO BID 03/12/17 [History Confirmed 08/23/17] Insulin Detemir [Levemir FlexPen] 10 - 16 units SC QHS 03/12/17 [History Confirmed 08/23/17] Latanoprost 0.005% [Xalatan Opthalmic] 1 drp EACH EYE DAILY 03/12/17 [History Confirmed 08/23/17] Benzonatate [Tessalon Perle] 100 mg PO TID PRN PRN #15 cap 03/14/17 [Rx Confirmed 08/23/17] Nitroglycerin [Nitrostat] 0.4 mg SUBLINGUAL Q5M PRN #10 tab 03/14/17 [Rx Confirmed 08/23/17] Celecoxib [Celebrex] 200 mg PO 06/04/17 [History Confirmed 08/23/17] Hydrocodone/Acetaminophen [Acme 5-325 Tablet] 06/04/17 [History] Insulin Detemir [Levemir] 100 unit SQ 06/04/17 [History Confirmed 08/23/17] Insulin Lispro [Humalog] 100 unit SQ 06/04/17 [History] Propylene Glycol/Peg 400/Pf [Systane 0.3-0.4% Eye Drops] 1 ea OP 06/04/17 [History Confirmed 08/23/17] Tramadol HCl [Ultram] 50 mg PO 06/04/17 [History Confirmed 08/23/17] Blood Pressure Cuff #1 ea 08/21/17 [Rx] aspirin 81 mg tablet,delayed release 81 mg PO BID #180 tab 08/23/17 [Rx Confirmed 08/23/17] pravastatin 80 mg tablet 80 mg PO QHS #90 tab 08/23/17 [Rx Confirmed 08/23/17] tadalafil 20 mg tablet 20 mg PO PRN 08/23/17 [History Confirmed 08/23/17] Handicap Placard #1 ea 09/04/17 [Rx] lisinopril 40 mg tablet 40 mg PO QDAY #90 tab 11/14/17 [Rx Confirmed 11/14/17] amlodipine 2.5 mg tablet 2.5 mg PO QDAY #90 tab 12/19/17 [Rx Confirmed 12/19/17] carvedilol 25 mg tablet 25 mg PO BID #180 tab 12/19/17 [Rx Confirmed 12/19/17] furosemide 40 mg tablet 40 mg PO BID #60 tab 12/19/17 [Rx Confirmed 12/19/17] Ejection fraction %: 45 to 49 PFSH Medical History Ventricular tachyarrhythmia (Chronic) Atherosclerosis of [place] coronary artery of [place] heart without angina pectoris (Chronic) DM2 (diabetes mellitus, type 2) (Chronic) Gout (Chronic) Diabetes mellitus with neuropathy (Chronic) Abscess of right foot (Chronic) CHF (congestive heart failure) (Chronic) NSTEMI (non-ST elevated myocardial infarction) (Chronic) Valvular heart disease (Chronic) Cardiomyopathy (Chronic) Pulmonary HTN (Chronic) Surgical History Status post wrist surgery (Resolved) Hx of CABG (Chronic) Family History Father CAD (coronary artery disease) Mother CAD (coronary artery disease) Social History Smoking Status: Former smoker alcohol intake: never substance use type: does not use caffeine: Yes Type: carbonated beverages Number of servings: 4 what type of physical activity do you participate in: none seatbelt use: always do you feel safe at home: Yes ROS Const Const: Negative for fatigue, weakness, body ache, fever(s) or chills ENT ENT: Negative for dizziness Cardio Chest Pain: No Palpitations: No Edema: Bilateral Muscle aches with walking: None Resp Respiratory: Negative for SOB with activity, SOB at rest, SOB orthopnea\SOB lying down or paroxysmal nocturnal dyspnea GI GI: Negative nausea, black,tarry stools, bright, red blood in stools or vomiting blood/hematemesis : Negative for hematuria or frequent nighttime urination/ nocturia Musc Musc: Negative for muscle aches/ myalgia Neuro Neuro: Negative for weakness, dizziness, lightheadedness, near syncope, syncope or orthostatic symptoms Endo Endo: Negative for fatigue Cardiology Exam Const Appearance: cooperative, healthy appearing, comfortable and no acute distress Orientation: alert, awake and oriented x3 Head Head: normal to inspection Mouth: oral mucosae normal Neck Neck: no JVD and normal visual inspection Carotids: normal carotid upstroke Chest Chest inspection: normal inspection of the chest and normal respiratory effort Auscultation: Bilateral: Clear to Auscultation Cardio Rate: regular rate Rhythm: regular rhythm Heart sounds: S1 normal, S2 normal and positive S4; negative rub or gallop GI GI: normal to inspection Neuro General: alert, awake, oriented x3 and CN's II-XI intact bilaterally Skin Skin: no rashes or lesions noted Extremities Pulses: Normal: Right Posterior Tibial Pulse, Left Posterior Tibial Pulse, Right Radial Pulse, Absent: Left Radial Pulse (not assessed d/t cast present) Upper Extremity: normal capillary refil Lower Extremity Edema: +1: Bilateral Psych Psychological: normal affect Supplemental Info Echocardiogram from July 2017 showed estimated ejection fraction 45%, mildly dilated left ventricle, mild concentric LVH, mildly enlarged left atrium, mildly enlarged right atrium, mild diffuse mitral thickening, trivial mitral valve insufficiency, trivial tricuspid valve insufficiency, aortic sclerosis, no stenosis, trivial aortic valve insufficiency, calcified aortic root, RVSP of 41 mmHg, and diastolic dysfunction. Heart catheterization from February 2017 showed elevated LVEDP DP, moderately to severely elevated right heart pressures, ejection fraction of 30%, and [place] multivessel coronary artery disease. Left main coronary artery had 25% stenosis, mid LAD had 50-75% stenosis, ostial circumflex had 85% stenosis, OM1 had 95% stenosis, and right PDA was subtotally occluded. He was referred to tertiary care center for bypass surgery. Assessment AND Plan 1. Atherosclerosis of [place] coronary artery of [place] heart without angina pectoris I25.10 S/P surgery with CARTY to LAD, SVG to OM system, and SVG to PDA in March 2017 at [facility]; Plan Patient denies any chest pain, arm pain, jaw pain, neck pain, shortness of breath, or fatigue suggestive of angina at this time. We will continue to monitor this. We will not make any medication regimen changes and will continue risk factor modification. 2. Edema, unspecified type R60.9 Plan Patient has continued to have elevated blood pressures in which his Norvasc has been increased for. His lower extremity edema appears compatible with fluid volume buildup. There is no physical evidence on exam of DVT. He will decrease his Norvasc to 2.5 mg p.o. daily and increase Coreg to 25 mg twice daily. Hopefully decreasing Norvasc will help with lower extremity edema. If edema continues we will have to consider stopping Norvasc and adjust further medications for elevated blood pressure. He is instructed to contact our office in approximately 1 week with an update on lower extremity edema and blood pressure readings. Plan Detail Other Medications Changed: Additional Comments Patient will keep October appointment with Dr. Chacon for further evaluation. Thank you for allowing us to participate in the patients plan of care, if you have any questions please do not hesitate to call. This note was generated using a voice recognition system and there may be incorrect words, spelling or punctuation that were not noted when reviewing the office note prior to saving. Coding Level of Care Code Off vis,est,level 2 Diagnoses Atherosclerosis of [place] coronary artery of [place] heart without angina pectoris I25.10 Edema, unspecified type R60.9 Edema type: unspecified Coding Level of Care Code Off vis,est,level 2 Diagnoses Atherosclerosis of [place] coronary artery of [place] heart without angina pectoris I25.10 Edema, unspecified type R60.9 Edema type: unspecified 12/19/172017 <Electronically signed by Ziggy MOTA> Date Ziggy MOTA Cosigner Signature: Date (if applicable) CC: Aditya Davis OT D/C SUMMARY Observed: 12/18/2017 Status: F Source: [place] 7:37 AM [facility] [place] REPOSITORY [facility] Occupational Therapy [facility] [address] [place] [address] Fax REHABILITATION SERVICES DISCHARGE SUMMARY MR#: [id number] Acct: [id number] Name: MAURI QUINONES Rep #: [id number] : 1955 62 From: Florencia Camarena OTR/Farhana, CHT Referring DrDavion: JENSEN PEGUERO Status: REG RCR Eval Date: Discharge Date: - OT D/C Summary It has been my pleasure to treat MAURI QUINONES under orders from Jensen Peguero, for the diagnosis of Fx Lower End L Radius, L wrist pain for a total of 11 visit(s). Please see the following information for a summary of their discharge status. - Overall Improvement % Improvement: 95 - Objective Objective/Function: left radial deviation 20 ulnar deviation 15. left wrist 60/45. left financial systems director 40#. left lat. pinch 10#. left tripod pinch 6# - Goals Patient Goals: Regain Strength, Return to Work, Decrease Swelling/Stiffness, Improve Fine Motor Skills, Use Hand/Wrist/Arm Normally Again, Decrease Tingling/Numbness, Increase ROM, Resume Hobbies Goal:: Pt will progress w/ L hand financial systems director strength by 10# to increase functional use of L hand and open all containers without difficulty. Goal:: Pt will progress w/ L wrist flexion by 5' and extension by 5' to increase functional use of L wrist for BADLs/IADLs. Goal:: Pt will demo no pain greater than 1/10 of L wrist/hand by d/c from OT Goal:: Pt will be educated on L hand/wrist HEP with good understanding and demo 100%x. Goal:: Pt will be educated on scar mngmt techniques with good understanding and demo 100%x. - Plan Plan: D/C - D/C Information Discharge Comments: pt was seen for 11 OT visits- pt states he has gained ind. with all BADLS and IADLS- pt feels he is ready to return to work- pt demo a increase in ROM and strength and has met goals in OT and is D/C at this time If there are questions or concerns regarding this patient's occupational therapy, please fell free to call me at [phone]. Thank you for the referral of this patient. Sincerely, Florencia Camarena, OTR/L, CHT <Electronically signed by Florencia Camarena OTR/Farhana, CHT> 12/18/17 0737 CC: Aditya Davis; JENSEN PEGUERO MK Signed DISCHARGE SUMMARY Observed: 11/29/2017 Status: F Source: [facility] 7:03 PM [facility] REPOSITORY [facility] Discharge Summary MAURI QUINONES ACCTNUM: [id number] DATE OF : SEX/AGE: / PATIENT TYPE: HOSP SVC: LOCATION: ADMIT DATE: 04/12/2017 DISCHARGE DATE: 04/19/2017 ADMISSION DIAGNOSES: Coronary artery disease and ischemic cardiomyopathy with acute systolic heart failure. HOSPITAL COURSE: This 61-year-old man was admitted with an episode of ischemic heart failure and was found to have severe multivessel coronary disease and cardiac catheterization, ejection fraction approximately 40%. On 04/12, he underwent coronary artery bypass grafting x3 with left internal mammary artery to left anterior descending artery and reverse saphenous vein graft to the posterior descending artery and obtuse marginal branch. Postoperative ejection fraction was improved. On postoperative day 1, he suffered an episode of VT for which he was resuscitated. This appeared to be preceded by complete heart block. So, complete heart block degenerating VT. Following this, he remained hemodynamically stable with no further arrhythmia issues. Extubated on 04/13. Chest tubes removed on 04/14. Transferred to floor on 04/16. She was seen by EP and LifeVest was recommended for 3 months with the plan to restudy him. By 04/19, he was ready for discharge home. DISPOSITION: Home. MEDICATIONS: As per the discharge med reconciliation sheet. FOLLOWUP: Dr. hPam with Cardiology and with electrophysiology service as well as with the [facility] Failure [facility]. DISPOSITION AT DISCHARGE: Good. Signed: DANTE PHAM MD 11/29/2017 18:20 EDT Dante Pham MD Cardiothoracic Surgery JAL:modl /[id number] Page 1 of 1 OT GENERAL EVALUATION Observed: 11/22/2017 Status: F Source: [place] 3:54 PM [facility] REPOSITORY [facility] Occupational [facility] [address] [place] [address] Fax REHABILITATION SERVICES INITIAL EVALUATION MR#: [id number] Acct: [id number] Name: MAURI QUINONES Rep #: [id number] : 1955 62 From: Isabella Guevara Referring Dr.: JENSEN PEGUERO Status: REG RCR Insurance: [facility] [employer] Eval Date: SELF PAY INSURANCE Patient's Visit Information MAURI QUINONES is a 62 year old M, referred to Occupational Therapy by DR.MLYKIN Sandra, with a diagnosis of Fx Lower End L Radius, L wrist pain. Date of Evaluation: 11/22/17 Occupational Therapist: Isabella Guevara - Subjective Subjective: Pt seen for initial occupational therapy evaluation for decreased strength and ROM of L hand/wrist from fx of lower end radius after fall over cord at work. Pt had accidental fall 08/15/17 with L wrist fx. He had a cast for 2 wks then went in for surgery for ORIF plate and 5 screws to fix lower end L radius middle of August. Pt is now out of his brace and needs to gain strength and ROM of L wrist/hand. Pt is R hand dominent. He is indep w/ all basic ADLs/IADLs. He requires a lot of bilateral hand use for his job. - Objective Objective/Observation: Pt demo decreased L hand financial systems director strength, ROM and moderate edema L wrist region, with decreased sensation L thumb and 2nd digit from after sx. - ROM Wrist: R 50/112, L 40/119 ROM Comments: able to make composite fist, and complete opposition L wrist/hand - Strength Master Glazier: R 35#, L 20# Tripod Pinch: R 6#, L 2# Strength Comments: Pt demo decreased L hand financial systems director/pinch strength. - Edema Other: Edema noted L wrist, moderate swelling. - Sensation Sensation Comments: Tingling in L thumb and 2nd digit. - DASH-Disabilities of Arm, Shoulder AND Hand DASH Sum: 65 - Goals Goal:: Pt will progress w/ L hand financial systems director strength by 10# to increase functional use of L hand and open all containers without difficulty. Goal:: Pt will progress w/ L wrist flexion by 5' and extension by 5' to increase functional use of L wrist for BADLs/IADLs. Goal:: Pt will demo no pain greater than 1/10 of L wrist/hand by d/c from OT Goal:: Pt will be educated on L hand/wrist HEP with good understanding and demo 100%x. Goal:: Pt will be educated on scar mngmt techniques with good understanding and demo 100%x. - Rehabilitation General Assessment: Pt demo decreased L hand/wrist ROM and financial systems director strength with tingling of L thumb, 2nd digit and moderate edema L wrist all indicating a need for occupational therapy services to increase pts L hand/wrist strength and ROM and educate on HEP and scar mngmt techniques to increase pts quality of life and prepare for return back to work. Rehabilitation Potential: Excellent - Anticipated Interventions Anticipated Interventions: A/AAROM/PROM, Strengthening, Scar Care, Massage, Modalities, Joint Protection/Energy Conservation, Fine Motor Coord/Daniel, Education re Skin Care and Precautions, Education re Self Massage Techniques, Home Program - Visit Plan Frequency: 3x /Week Duration: 4 Weeks General Plan: increase ROM L wrist, increase L wrist/hand strength, educate on L UE HEP and scar mgnmt techniques TEXT: Thank you for the opportunity to evaluate your patient. For Medicare and Medicare HMO plans, please review the plan of care and approve it. It will need to be FAXED BACK to us at [phone] for Medicare purposes. Please let me know if there are questions or concerns regarding this plan of care. Physician Signature: Date: <Electronically signed by Isabella Guevara > 11/22/17 1554 CC: Aditya Davis; JENSEN PEGUERO JONA Signed For Medicare only, by signing this I certify the plan of care. Physicians Signature Date OFFICE VISIT REPORT Observed: 11/15/2017 Status: F Source: [place] 7:42 AM [facility] [place] [address] OFFICE VISIT Date of Service: 11/14/17 MR#: [id number] Acct: [id number] Patient: MAURI QUINONES Rep #: [id number] : 1955 Provider: Standard Nurse, RN Age/Sex: 62/M Location: [facility] [place] Status: Signed Intake Intake Visit Reasons: BP check Allergies pregabalin [From Lyrica] Allergy (Verified 03/12/17 11:06) Angioedema Medications Gabapentin [Neurontin] 300 mg PO BID 03/12/17 [History Confirmed 08/23/17] Insulin Detemir [Levemir FlexPen] 10 - 16 units SC QHS 03/12/17 [History Confirmed 08/23/17] Latanoprost 0.005% [Xalatan Opthalmic] 1 drp EACH EYE DAILY 03/12/17 [History Confirmed 08/23/17] Benzonatate [Tessalon Perle] 100 mg PO TID PRN PRN #15 cap 03/14/17 [Rx Confirmed 08/23/17] Nitroglycerin [Nitrostat] 0.4 mg SUBLINGUAL Q5M PRN #10 tab 03/14/17 [Rx Confirmed 08/23/17] Celecoxib [Celebrex] 200 mg PO 06/04/17 [History Confirmed 08/23/17] Hydrocodone/Acetaminophen [Acme 5-325 Tablet] 06/04/17 [History] Insulin Detemir [Levemir] 100 unit SQ 06/04/17 [History Confirmed 08/23/17] Insulin Lispro [Humalog] 100 unit SQ 06/04/17 [History] Propylene Glycol/Peg 400/Pf [Systane 0.3-0.4% Eye Drops] 1 ea OP 06/04/17 [History Confirmed 08/23/17] Tramadol HCl [Ultram] 50 mg PO 06/04/17 [History Confirmed 08/23/17] Blood Pressure Cuff #1 ea 08/21/17 [Rx] aspirin 81 mg tablet,delayed release 81 mg PO BID #180 tab 08/23/17 [Rx Confirmed 08/23/17] pravastatin 80 mg tablet 80 mg PO QHS #90 tab 08/23/17 [Rx Confirmed 08/23/17] tadalafil 20 mg tablet 20 mg PO PRN 08/23/17 [History Confirmed 08/23/17] Handicap Placard #1 ea 09/04/17 [Rx] amlodipine 2.5 mg tablet 2.5 mg PO QDAY 10/30/17 [History] furosemide 20 mg tablet 20 mg PO .COMPLEX 10/30/17 [History] carvedilol 12.5 mg tablet 12.5 mg PO BID #180 tab 11/14/17 [Rx Confirmed 11/14/17] lisinopril 40 mg tablet 40 mg PO QDAY #90 tab 11/14/17 [Rx Confirmed 11/14/17] Assessment AND Plan Problems 1. Essential hypertension I10 Plan Patient's blood pressure remains elevated despite adjustment with carvedilol. Patient will increase his amlodipine to 5 mg p.o. daily and continue to monitor blood pressure. He should also contact our office in approximately 2 weeks with an update on blood pressure and any adverse symptoms. Medications New: Nursing Note Patient in for BP check after medication changes; Coreg 12.5mg BID and to correlate home BP cuff. Patient states that BP's have been varying from high to low. Systolic continues to run 150's to 180's. HR 55-65, occasionally 52 bpm. BP today LT 190/80 HR 72, RT 192/90 Home Cuff BP 199/107 HR 75. Rechecked BP x 10 minutes Lt 184/82. Patient states that he cant really tell when BP is elevated. Any changes? 11/15/17 0742 <Electronically signed by Ziggy MOTA> Date Ziggy MOTA Cosigner Signature: Date (if applicable) CC: Florencia Joel PROGRESS Observed: 10/29/2017 Status: COMPLETED Source: [place] 3:00 PM [facility] REPOSITORY [facility] ID: [id number] Author: Lor Haskins (Pharmacist) Service: (none) Author Type: Pharmacist Type: Progress Notes Filed: 10/29/2017 3:47 PM Note Text: Patient consents to pharmacy collaborative practice agreement. REASON FOR CONSULT: DM GOALS: A1c < 7% CONSULTING PROVIDER: Albert GAGNON Date of Consult: 08/2017 Mauri Quinones is a 61 year old male was last seen in [facility] by PCP, Dr. Aditya Davis PA-C on 10/23/17. Patient is presenting today for initial pharmacotherapy management appointment for DM. At last PCP amlodipine was started. INTERIM HISTORY: Fractured risk in August Repots metformin was stopped end of July by Cardiology and never re-started Current DM Medications: Insulin detemir 17 units QHS Current HTN Medications: Lisinopril 40mg once daily Carvedilol 3.125mg BID Amlodipine 2.5mg once daily Furosemide 40mg QAM Preventative Medications: ? On VANESSA/ARB: Yes ? On Statin: Yes ? On ASA: Yes ROS: ? Patient denies CP, SOB, MEZA, blurred vision, dizziness or lightheadedness ? Patient denies symptoms of hypoglycemia (sweating, anxiety, palpitations, hunger, and tremor) ? Patient denies symptoms of hyperglycemia (polyuria, polydipsia, polyphagia) ? Patient denies potential medication adverse effects DIET/EXERCISE/SOCIAL Hx: ? Breakfast: cheerios ? Lunch: croatian loaf sandwich and a few chips ? Dinner: 2 pieces of garlic bread ? Snacks: sometimes ? Following Na restrictions: no, trying to eat less ? Beverages: diet pop ? Exercise: walking ? Tobacco: denies ? Alcohol: seldom ? Illicits: denies MEDICATIONS: ? Pill bottles are not present. ? Adherence: denies missed doses. ? Pharmacy: [facility] ? Rx coverage: [place] ? Affordability: no issues ? Diabetes supplies: Freestyle ? 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 HYDROcodone-acetaminophen (NORCO) 5-325 mg per tablet Take 1 tablet by mouth every 8 hours as needed. MULTIVITAMIN/IRON/FOLIC ACID (DAILY MULTI ORAL) Take 2 Each by mouth once daily. celecoxib (CELEBREX) 200 mg capsule Take 200 mg by mouth as needed. lisinopril (ZESTRIL) 40 mg tablet Take 1 tablet by mouth once daily. insulin detemir (LEVEMIR FLEXTOUCH) 100 unit/mL (3 mL) inpn injection Inject 17 Units subcutaneously daily at bedtime. Tadalafil (CIALIS) 20 mg tab(s) Take 1 tablet by mouth as needed. carvedilol (COREG) 3.125 mg tablet Take 1 tablet by mouth twice daily. pravastatin (PRAVACHOL) 80 mg tablet gabapentin (NEURONTIN) 300 mg capsule Take one capsule by mouth twice daily aspirin, enteric coated (ASPIR-81) 81 mg EC tablet Take 1 tablet by mouth once daily. (Patient taking differently: Take 162 mg by mouth once daily.) furosemide (LASIX) 40 mg tablet Take 40 mg by mouth once daily. in am and 20 mg in pm nitroglycerin sublingual (NITROQUICK) 0.4 mg SL tablet Dissolve 1 tablet under the tongue every 5 minutes as needed. latanoprost (XALATAN) 0.005 % ophthalmic solution Use 1 Drop in both eyes daily at bedtime. into affected eye(s). No current facility-administered medications for this visit. Rx meds not listed in EPIC: none OTCs: none Herbals: none GLYCEMIC CONTROL: ? Glucometer present at visit: No ? SMBG?s: ? FBGs 80-130 ? Hypoglycemia: denies VITALS: There were no vitals taken for this visit. Last 3 Encounter BP Readings: Date: BP: 09/24/2017 148/81[BP TRUE AVERAGE[ 08/21/2017 224/104 06/15/2017 162/92 Wt: 80.3 kg (177 lb) BMI: 26.37 kg/(m2) LABS Lab Results Component Value Date HBA1C 8.9 08/24/2017 HBA1C 9.5 04/09/2017 HBA1C 8.7 03/23/2017 CMP: Glucose 125 08/24/2017 BUN 27 08/24/2017 Creatinine 1.02 08/24/2017 Sodium (I-STAT) 140 08/24/2017 Potassium (I-STAT) 4.3 08/24/2017 Chloride 97 08/24/2017 CO2 31 08/24/2017 Protein, Total 6.8 08/24/2017 Albumin 3.0 08/24/2017 Calcium 9.1 08/24/2017 Alkaline Phosphatase 104 08/24/2017 Bilirubin, Total 0.2 08/24/2017 AST 29 08/24/2017 ALT 29 08/24/2017 Estimated Creatinine Clearance: 77.2 mL/min (based on Cr of 1.02). Last Lipid Panel Lab Results Component Value Date CHOL 177 08/24/2017 Lab Results Component Value Date HDL 49 08/24/2017 Lab Results Component Value Date LDL 114 08/24/2017 Lab Results Component Value Date TG 70 08/24/2017 Albumin/Creat Ratio (mg/g) Date Value 09/16/2016 1447 (H) PHARMACOTHERAPY ASSESSMENT/PLAN: 1. Uncontrolled type 2 diabetes mellitus without complication, with long-term current use of insulin ([facility]) - ICD9: 250.02, V58.67, ICD10: E11.65, Z79.4 (primary diagnosis) A1c goal < 7%, patient is not at goal (8.9% on 08/24/17). Reported FBGs at goal and PPBGs at goal. Patient compliant with and tolerating current regimen. Per patient metformin was stopped prior to procedure, and never re-started. He will call Cardiology go ask if it can be re- initiated. Will continue current regimen at this time until further data can be obtained. Renal fxn and LFTs WNL and appropriate for continued therapy ? CONTINUE insulin detemir 17 units QHS ? Instructed patient to continue checking SMBGs daily and call PharmD with SMBGs for last two weeks ? A1c next PharmD visit 2. Hypertension, essential - ICD9: 401.9, ICD10: I10 BP goal < 140/90, pt is not at goal on current therapy. Patient compliant with and tolerating current regimen. Amlodipine started on 10/23. Pulse, renal fxn and K+ WNL and appropriate for continued therapy. ? CONTINUE lisinopril 40mg, carvedilol 3.125mg BID, amlodipine 2.5mg once daily, furosemide 40mg QAM ? Instructed patient to continue checking BPs at home ? Bring all medication bottles to next PharmD visit 3. Mixed hyperlipidemia - ICD9: 272.2, ICD10: E78.2 Pt is on moderate statin intensity (inidicated for high intensity d/t clinical ASCVD risk score). Reports intolerance to high intensity statins. Patient compliant with and tolerating current regimen. Will continue at this time. LFTs and renal fxn WNL and appropriate for continued therapy ? CONTINUE pravastatin 80mg once daily Health Maintenance issues addressed: DIABETIC FOOT EXAM due on 08/14/2017 URINE ALBUMIN CREATININE RATIO due on 09/16/2017 Patient is scheduled to see PCP will use open access. Patient to return to clinic for PharmD f/u on 11/21/16. Patient verbalized understanding of instructions. Lor Haskins, Malaika, BCPS CNOV Observed: 10/29/2017 Status: COMPLETED Source: [place] 3:00 PM [facility] REPOSITORY Office Visit (PHMEWO) MAURI QUINONES ([id number]) 1955 M Date Time Provider Department 10/29/17 3:00 PM JOZEF (PHARMACIST)LOR During your visit today, we recorded the following information about you: Pulse Blood pressure 62/minute 175/79 FEMI PETER 10/29/2017 3:47 PM Signed Patient consents to pharmacy collaborative practice agreement. REASON FOR CONSULT: DM GOALS: A1c ANDlt; 7% CONSULTING PROVIDER: Albert GAGNON Date of Consult: 08/2017 Mauri Quinones is a 61 year old male was last seen in [facility] by PCP, Dr. Aditya Davis PA-C on 10/23/17. Patient is presenting today for initial pharmacotherapy management appointment for DM. At last PCP amlodipine was started. INTERIM HISTORY: Fractured risk in August Repots metformin was stopped end of July by Cardiology and never re-started Current DM Medications: Insulin detemir 17 units QHS Current HTN Medications: Lisinopril 40mg once daily Carvedilol 3.125mg BID Amlodipine 2.5mg once daily Furosemide 40mg QAM Preventative Medications: ? On VANESSA/ARB: Yes ? On Statin: Yes ? On ASA: Yes ROS: ? Patient denies CP, SOB, MEZA, blurred vision, dizziness or lightheadedness ? Patient denies symptoms of hypoglycemia (sweating, anxiety, palpitations, hunger, and tremor) ? Patient denies symptoms of hyperglycemia (polyuria, polydipsia, polyphagia) ? Patient denies potential medication adverse effects DIET/EXERCISE/SOCIAL Hx: ? Breakfast: cheerios ? Lunch: croatian loaf sandwich and a few chips ? Dinner: 2 pieces of garlic bread ? Snacks: sometimes ? Following Na restrictions: no, trying to eat less ? Beverages: diet pop ? Exercise: walking ? Tobacco: denies ? Alcohol: seldom ? Illicits: denies MEDICATIONS: ? Pill bottles are not present. ? Adherence: denies missed doses. ? Pharmacy: [facility] ? Rx coverage: [place] ? Affordability: no issues ? Diabetes supplies: Freestyle ? 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 HYDROcodone-acetaminophen (NORCO) 5-325 mg per tablet Take 1 tablet by mouth every 8 hours as needed. MULTIVITAMIN/IRON/FOLIC ACID (DAILY MULTI ORAL) Take 2 Each by mouth once daily. celecoxib (CELEBREX) 200 mg capsule Take 200 mg by mouth as needed. lisinopril (ZESTRIL) 40 mg tablet Take 1 tablet by mouth once daily. insulin detemir (LEVEMIR FLEXTOUCH) 100 unit/mL (3 mL) inpn injection Inject 17 Units subcutaneously daily at bedtime. Tadalafil (CIALIS) 20 mg tab(s) Take 1 tablet by mouth as needed. carvedilol (COREG) 3.125 mg tablet Take 1 tablet by mouth twice daily. pravastatin (PRAVACHOL) 80 mg tablet gabapentin (NEURONTIN) 300 mg capsule Take one capsule by mouth twice daily aspirin, enteric coated (ASPIR-81) 81 mg EC tablet Take 1 tablet by mouth once daily. (Patient taking differently: Take 162 mg by mouth once daily.) furosemide (LASIX) 40 mg tablet Take 40 mg by mouth once daily. in am and 20 mg in pm nitroglycerin sublingual (NITROQUICK) 0.4 mg SL tablet Dissolve 1 tablet under the tongue every 5 minutes as needed. latanoprost (XALATAN) 0.005 % ophthalmic solution Use 1 Drop in both eyes daily at bedtime. into affected eye(s). No current facility-administered medications for this visit. Rx meds not listed in EPIC: none OTCs: none Herbals: none GLYCEMIC CONTROL: ? Glucometer present at visit: No ? SMBG?s: ? FBGs 80-130 ? Hypoglycemia: denies VITALS: There were no vitals taken for this visit. Last 3 Encounter BP Readings: Date: BP: 09/24/2017 148/81[BP TRUE AVERAGE[ 08/21/2017 224/104 06/15/2017 162/92 Wt: 80.3 kg (177 lb) BMI: 26.37 kg/(m2) LABS Lab Results Component Value Date HBA1C 8.9 08/24/2017 HBA1C 9.5 04/09/2017 HBA1C 8.7 03/23/2017 CMP: Glucose 125 08/24/2017 BUN 27 08/24/2017 Creatinine 1.02 08/24/2017 Sodium (I-STAT) 140 08/24/2017 Potassium (I-STAT) 4.3 08/24/2017 Chloride 97 08/24/2017 CO2 31 08/24/2017 Protein, Total 6.8 08/24/2017 Albumin 3.0 08/24/2017 Calcium 9.1 08/24/2017 Alkaline Phosphatase 104 08/24/2017 Bilirubin, Total 0.2 08/24/2017 AST 29 08/24/2017 ALT 29 08/24/2017 Estimated Creatinine Clearance: 77.2 mL/min (based on Cr of 1.02). Last Lipid Panel Lab Results Component Value Date CHOL 177 08/24/2017 Lab Results Component Value Date HDL 49 08/24/2017 Lab Results Component Value Date LDL 114 08/24/2017 Lab Results Component Value Date TG 70 08/24/2017 Albumin/Creat Ratio (mg/g) Date Value 09/16/2016 1447 (H) PHARMACOTHERAPY ASSESSMENT/PLAN: 1. Uncontrolled type 2 diabetes mellitus without complication, with long-term current use of insulin ([facility]) - ICD9: 250.02, V58.67, ICD10: E11.65, Z79.4 (primary diagnosis) A1c goal ANDlt; 7%, patient is not at goal (8.9% on 08/24/17). Reported FBGs at goal and PPBGs at goal. Patient compliant with and tolerating current regimen. Per patient metformin was stopped prior to procedure, and never re-started. He will call Cardiology go ask if it can be re-initiated. Will continue current regimen at this time until further data can be obtained. Renal fxn and LFTs WNL and appropriate for continued therapy ? CONTINUE insulin detemir 17 units QHS ? Instructed patient to continue checking SMBGs daily and call PharmD with SMBGs for last two weeks ? A1c next PharmD visit 2. Hypertension, essential - ICD9: 401.9, ICD10: I10 BP goal ANDlt; 140/90, pt is not at goal on current therapy. Patient compliant with and tolerating current regimen. Amlodipine started on 10/23. Pulse, renal fxn and K+ WNL and appropriate for continued therapy. ? CONTINUE lisinopril 40mg, carvedilol 3.125mg BID, amlodipine 2.5mg once daily, furosemide 40mg QAM ? Instructed patient to continue checking BPs at home ? Bring all medication bottles to next PharmD visit 3. Mixed hyperlipidemia - ICD9: 272.2, ICD10: E78.2 Pt is on moderate statin intensity (inidicated for high intensity d/t clinical ASCVD risk score). Reports intolerance to high intensity statins. Patient compliant with and tolerating current regimen. Will continue at this time. LFTs and renal fxn WNL and appropriate for continued therapy ? CONTINUE pravastatin 80mg once daily Health Maintenance issues addressed: DIABETIC FOOT EXAM due on 08/14/2017 URINE ALBUMIN CREATININE RATIO due on 09/16/2017 Patient is scheduled to see PCP will use open access. Patient to return to clinic for PharmD f/u on 11/21/16. Patient verbalized understanding of instructions. Lor Haskins, PharmD, BCPS LOR HASKINS PHARMACIST 10/29/2017 3:30 PM Addendum Thanks for coming in today! Things we talked about: 1. Call Lor with your sugars tonight when you get home 2. Call the heart doctor and ask can you take metformin Thank you, Lor Haskins, PharmD Referring Provider: Aditya DAVIS (PA-C) [[id number]] Allergies As of Date: 10/29/2017 Noted Allergy Reaction LYRICA (PREGABALIN) 03/23/2017 7 - Swelling Date Reviewed: 10/23/2017 Reviewed by: Caryn Simpson LPN - Fully Assessed Reason for Visit: Allied Health Visit [5] Cmt: DM initial Primary Visit Diagnosis:Uncontrolled type 2 diabetes mellitus without complication, with long-term current use of insulin (HCC) [E11.65, Z79.4] Other Visit Diagnoses:Hypertension, essential [I10] Mixed hyperlipidemia [E78.2] Medication management [Z79.899] Order(s):ALBUMIN/CREAT RATIO RND UR [SQUACR] Order #: [id number] FUTURE Prescriptions as of 10/29/2017 Sig: AMLODIPINE 2.5 MG TABLET Take 1 tablet by mouth once d* DAILY MULTI ORAL Take 2 Each by mouth once rafita* CELECOXIB 200 MG CAPSULE Take 200 mg by mouth as neede* LISINOPRIL 40 MG TABLET Take 1 tablet by mouth once d* INSULIN DETEMIR (U-100) 100 U* Inject 17 Units subcutaneousl* CARVEDILOL 3.125 MG TABLET Take 1 tablet by mouth twice * PRAVASTATIN 80 MG TABLET GABAPENTIN 300 MG CAPSULE Take one capsule by mouth twi* ASPIRIN 81 MG TABLET,DELAYED * Take 1 tablet by mouth once d* Patient taking differently: Take 162 mg by mouth once rafita* FUROSEMIDE 40 MG TABLET Take 40 mg by mouth once jagdeep* OXYCODONE-ACETAMINOPHEN 5 MG-* HYDROCODONE 5 MG-ACETAMINOPHE* Take 1 tablet by mouth every * TADALAFIL 20 MG TABLET Take 1 tablet by mouth as nee* NITROGLYCERIN 0.4 MG SUBLINGU* Dissolve 1 tablet under the t* LATANOPROST 0.005 % EYE DROPS Use 1 Drop in both eyes daily* Medication notes this encounter OXYCODONE-ACETAMINOPHEN 5 MG-325 MG TABLET >> FEMI PETER 10/29/2017 3:01 PM >> JOZEF (PHARMACIST)LOR Oct 29, 2017 3:01 PM Received from: External Pharmacy ONDANSETRON HCL 4 MG TABLET >> FEMI PETER 10/29/2017 3:01 PM >> JOZEF (PHARMACIST), LOR Handy Oct 29, 2017 3:01 PM Received from: External Pharmacy Problem List As Of Date 10/29/2017 Noted Resolved Uncontrolled type 2 diabetes mellitus without c*INVALID FOR* More... 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 Hypertension, essential [I10] INVALID FOR* Other instructions from your clinician: Thanks for coming in today! Things we talked about: 1. Call Lor with your sugars tonight when you get home 2. Call the heart doctor and ask can you take metformin Thank you, Lor Haskins PharmD Medications Discontinued During This Encounter ondansetron (ZOFRAN) 4 mg tablet 0 09/07/2017 10/29/2017 Class: Historical Med Sig: TAKE ONE TABLET BY MOUTH EVERY 8 HOURS NEEDED FOR post-op nausea Disc: Reason for discontinue is not on file. Encounter Status:Closed by JOZEF (PHARMACIST)LOR on 10/29/17 BRAIN/HEAD W/WO Observed: 10/25/2017 Status: F Source: [place] CONTR[place] 3:42 PM [facility] REPOSITORY [facility] Imaging Services [address] [place] [address] Brain/Head W/WO Contrast MR#: [id number] Acct: [id number] Name: MAURI QUINONES Rep #: [id number] : 1955 M 61 From: Paco Moore MD PCP: Aditya Davis Status: REG CLI Study: Brain/Head W/WO Contrast Date of Exam: 10/25/17 Exam# [id number] Ordering Dr: Camden Caal MD STUDY: CT BRAIN WITHOUT CONTRAST REASON FOR EXAM: Male, 61 years old. OPTIC NEUROPATHY BLURRY VISION LEFT EYE RADIATION DOSAGE (If Supplied By Facility): CTDIvol = ( 44.99 ) mGy, DLP = ( 1535.98 ) mGycm TECHNIQUE: Transaxial CT imaging of the brain was performed without administration of intravenous contrast material. COMPARISON: 06.08.05 FINDINGS: Normal soft tissue structures. Normal calvarium. There are calcifications noted in the distal vertebral arteries. There are calcifications noted in the cavernous carotid arteries. This is consistent for atherosclerotic disease. There is mild cerebral atrophy with widening of the extra- axial spaces and ventricular dilatation. There are areas of decreased attenuation within the white matter tracts of the supratentorial brain, consistent with microvascular disease changes. Normal basal ganglia and thalami. Normal brainstem. There is mild cerebellar atrophy. There is no intracranial hemorrhage. There are no findings of an acute ischemic infarction. There is left mastoid air cell disease. There is mild maxillary sinus disease. CT/Brain/Head W/WO Contrast IMPRESSION: Chronic involutional changes of the brain. There are no acute findings. Electronically Signed: Paco Moore MD at 17:31 EST , Service support , CC: Aditya Davis; Camden Caal MD Arc Welder Apprentice: Signed SINUS/FACIAL BONE W/WO Observed: 10/25/2017 Status: F Source: [place] CONTRAS 3:42 PM [facility] REPOSITORY [facility] Imaging Services [address] [address] Sinus/Facial Bone W/WO Contras MR#: [id number] Acct: [id number] Name: MAURI QUINONES Rep #: [id number] : 1955 M 61 From: Paco Moore MD PCP: Aditya Davis Status: REG CLI Study: Sinus/Facial Bone W/WO Contras Date of Exam: 10/25/17 Exam# [id number] Ordering Dr: Camden Caal MD STUDY: CT TEMPORAL BONES WITH CONTRAST - ATTN: I.A.C. S REASON FOR EXAM: Male, 61 years old. [facility] NEUROPATHY BLURRY VISION LEFT EYE RADIATION DOSAGE (If Supplied By Facility): CTDIvol = ( 29.38 ) mGy, DLP = ( 661.50 ) mGycm TECHNIQUE: The patient was scanned in a multi detector CT scanner. Transaxial imaging was performed with the administration of 100CC ml of Isovue 250 intravenous contrast material. Sagittal and coronal images were reconstructed. Individualized dose optimization techniques were used for this CT. COMPARISON: None. FINDINGS: RIGHT TEMPORAL BONE Normal right internal auditory canal. There is no demonstrated enhancing abnormality. There is mild maxillary sinus disease. There is mild ethmoid sinus disease. Normal visualized ossicles and tympanic cavity. Normal right cochlea and semicircular canals. Normal vestibular aqueduct . Normal right petrous carotid artery. Normal right jugular fossa. Normal right mastoid air cells. Normal right petrous apex. LEFT TEMPORAL BONE Normal left internal auditory canal. There is no demonstrated enhancing abnormality. Normal visualized ossicles and tympanic cavity. Normal left cochlea and semicircular canals. Normal vestibular aqueduct. Normal left petrous carotid artery. Normal right jugular fossa. Normal left mastoid air cells. Normal left petrous apex. CT/Sinus/Facial Bone W/WO Contras IMPRESSION: Normal enhanced CT examination of the bilateral temporal bones (I.A.C.'s). Electronically Signed: Paco Moore MD at 18:43 EST , Service support , CC: Aditya Davis; Camden Caal MD Arc Welder Apprentice: Signed PROGRESS Observed: 10/23/2017 Status: COMPLETED Source: [place] 12:42 PM [facility] [place] REPOSITORY [facility] ID: [id number] Author: Aditya Eckert (Pa-Marianne) Ryan Service: (none) Author Type: Physician Delivery Driver/Customer Service Type: Progress Notes Filed: 10/23/2017 3:57 PM Note Text: BP Hank Serial, Digital BP Readings, Taken 2 Minutes Apart, Average Readings: 187/83 Pulse: 55 Reason for blood pressure check - Last BP elevated and Medication adjustment Patient is: Taking medication as prescribed Yes Took medication today Yes Experiencing side effects No Recommendations To see provider today Follow-up Yes Pt has been identified by name and birthdate: Yes Allergies reviewed: Yes Latex allergy: no. Medication - prescribed and OTC reviewed and updated: Yes Do you need any prescription refills prior to your next visit: No Health Maintenance: Reviewed and not up to date and provider notified 61 year old male with c/o blood pressure check and neck pain. 1. HTN: Patient states he does not take his blood pressure at home but they are going to get a cuff after today's visit. He said he doesn't ever notice if his blood pressure is to ohigh, denies syncope, dizziness, shortness of breath, or chest pain. He is taking his medications as directed without side effects. Current meds: Patient is compliant with meds Yes Monitors bp at home: No. If yes, readings: Denies side effects: Yes. Chest pain: No. Dyspnea: No. Edema: No. Palpitations: No. Syncope: No. Headache: Yes. Dizziness: No. Last 3 Encounter BP Readings: Date: BP: 09/24/2017 148/81[BP TRUE AVERAGE[ 08/21/2017 224/104 06/15/2017 162/92 Last 2 Encounter Wt Readings: Date: Wt: 09/24/2017 80.3 kg (177 lb) 08/21/2017 80.7 kg (178 lb) 2. Neck: Has had neck pain since Sunday night. He said he turned his head a weird way and has hurt ever since. He took two Narco and got an upset stomach and got sick, has not tried anything else for the pain. He says it does hurt to turn his neck side to side, limiting his ROM. Rates the pain as 3/10, 4/10 at it's worst. Has had pain like this before in the past but it went away on its own. HISTORIES FAMILY HISTORY Problem Relation Age of Onset - Arthritis Mother - Coronary Artery Disease Mother - Diabetes Mother - Heart Mother - Hypertension Mother - Alcohol/Drug Father - Arthritis Father - Heart Father - Hypertension Father PAST MEDICAL HISTORY Diagnosis Date - Ankylosing spondylitis ([facility]) - CAD (coronary artery disease) - Cellulitis - Constipation - Diabetes ([facility]) - Gout - Hx of fracture multiple bones - NSTEMI (non-ST elevated myocardial infarction) ([facility]) 03/12/2017 [facility] admit - Osteoarthritis PAST SURGICAL HISTORY Procedure Laterality Date - CORONARY ARTERY BYPASS GRAFT 04/12/2017 x 3 - HIP SURGERY HX Right pin - KNEE ARTHROSCOPY Left x2 - KNEE SURGERY HX Right TKR, right, arthoscopy x3 - PAST SURGICAL HISTORY OF 09/07/2017 08/15/17 fx radius in 2 places; plate and screws.Plate and screws 09/07/17 [facility] - TOE SURGERY HX Right Social History Marital status: Spouse name: Yun Years of education: Number of children: 2 Social History Main Topics Smoking status: Never Smoker Smokeless status: Former User Types: Chew Alcohol use: Yes Comment: seldom Drug use: No Sexual activity: Yes Partners with: Female Other Topics Concern Service No Blood Transfusions No Caffeine Concern No Comment:None Occupational Exposure No Hobby Hazards No Sleep Concern No Stress Concern No Weight Concern Yes Special Diet No Back Care No Exercise No Comment:No formal Bike Helmet No Seat Belt Yes Self-Exams No ACTIVE PROBLEM LIST Uncontrolled Type 2 Diabetes Mellitus Without Complication, With Long-Term Current Use of Insulin ([facility]) Bilateral Low Back Pain Without Sciatica Chronic Constipation 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 Disp: Rfl: MULTIVITAMIN/IRON/FOLIC ACID (DAILY MULTI ORAL) Take 2 Each by mouth once daily. Disp: Rfl: celecoxib (CELEBREX) 200 mg capsule Take 200 mg by mouth as needed. Disp: Rfl: lisinopril (ZESTRIL) 40 mg tablet Take 1 tablet by mouth once daily. Disp: 30 tablet Rfl: 1 insulin detemir (LEVEMIR FLEXTOUCH) 100 unit/mL (3 mL) inpn injection Inject 17 Units subcutaneously daily at bedtime. Disp: 18 mL Rfl: 3 Tadalafil (CIALIS) 20 mg tab(s) Take 1 tablet by mouth as needed. Disp: 30 tablet Rfl: 5 carvedilol (COREG) 3.125 mg tablet Take 1 tablet by mouth twice daily. Disp: Rfl: pravastatin (PRAVACHOL) 80 mg tablet Disp: Rfl: gabapentin (NEURONTIN) 300 mg capsule Take one capsule by mouth twice daily Disp: 180 capsule Rfl: 3 aspirin, enteric coated (ASPIR-81) 81 mg EC tablet Take 1 tablet by mouth once daily. (Patient taking differently: Take 162 mg by mouth once daily.) Disp: 90 tablet Rfl: 3 furosemide (LASIX) 40 mg tablet Take 40 mg by mouth once daily. in am and 20 mg in pm Disp: Rfl: nitroglycerin sublingual (NITROQUICK) 0.4 mg SL tablet Dissolve 1 tablet under the tongue every 5 minutes as needed. Disp: Rfl: 0 latanoprost (XALATAN) 0.005 % ophthalmic solution Use 1 Drop in both eyes daily at bedtime. into affected eye(s). Disp: Rfl: 0 No current facility-administered medications for this visit. TETANUS due on 1968 HEPATITIS C SCREENING due on 2001 FECAL OCCULT BLOOD due on 11/06/2007 DIABETIC FOOT EXAM due on 08/14/2017 URINE ALBUMIN CREATININE RATIO due on 09/16/2017 EXAM: 188/76 left, 192/80 right Pleasant middle aged male in no acute distress. Alert and oriented all spheres. Normal affect and cognition. Speech normal. No deficits to learning or comprehension. Skin warm, dry, pink to lips and nailbeds. Normal turgor. Respirations regular and unlabored. Chest CTA. HRRR without murmur or gallop. Extrem: no clubbing, cyanosis, edema. Extremities are warm and pink with prompt capillary refill. ASSESSMENT/PLAN: 1. Hypertension, essential - ICD9: 401.9, ICD10: I10 (primary diagnosis) - poor control - Add amlodipine (Norvasc) - Recommended regular aerobic exercise. - Recommend home blood pressure monitoring, to bring results in on next visit - Goal of BP <130/80 2. Arteriosclerotic heart disease (ASHD) - ICD9: 414.00, ICD10: I25.10 Stable. No chest pain. Follows with Dr. Mayra Davis PA-C BUN Collected: 10/23/2017 Status: F Source: [place] 12:07 PM [facility] REPOSITORY TYPE CODE TESTS RESULT OUT OF RANGE REFERENCE UNITS LAB L501.1000 7-18 mg/dL High BUN 39 Performed By: #### L501.1000, L501.1105 #### [facility] [address] [place], [place], [address] SERUM CREATININE AND Collected: 10/23/2017 Status: F Source: [place] GFR 12:07 PM [facility] REPOSITORY TYPE CODE TESTS RESULT OUT OF RANGE REFERENCE UNITS LAB L501.1100 0.70-1.30 mg/dL Normal 1.03 CREAT,SERUM Result Comment: The validity of the calculated GFR AND GFRAA in patients over 70 years has not been determined. Clinical correlation is essential. LAB L501.1110 >60 mL/min Normal EST GFR 78 Result Comment: Non- GFR Calc LAB L501.1115 >60 mL/min Normal EST GFR - AA 95 Result Comment: GFR Calc Performed By: #### L501.1000, L501.1105 #### [facility] [address] [place], [place], [address] CNOV Observed: 09/24/2017 Status: COMPLETED Source: [place] 1:00 PM [facility] REPOSITORY Office Visit (FAMPWS) MAURI QUINONES ([id number]) 1955 M Date Time Provider Department 09/24/17 1:00 PM Aditya DAVIS) KAVONPWS During your visit today, we recorded the following information about you: Temperature Pulse Respiration Blood pressure 98.4 degrees 64/minute 16/minute 148/81 Weight Height 80.3 kg 1.745 m Aditya Davis PA-C 09/24/2017 6:41 PM Signed 61 year old male here to establish care. Prior PCP: Dr. Travis. 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 2 children son 31, daughter 33 Current concerns: 1. BP has been elevated in therapy, sometimes in 200s SBP. Notified ENVELOPE PATTERNMAKER Ziggy at [facility] who told not increase. Asymptomatic. No headache, dizziness, chest pain. Has blurred vision in left due to glaucoma. ACTIVE PROBLEM LIST 1. Uncontrolled Type 2 Diabetes Mellitus Without Complication, With Long-Term Current Use of Insulin ([facility]) x 12 years. A1c started 14%. Referred to pharmacist for management. Taking medication as directed consistently? Yes. Only taking Levemir Medical Issues / Complications: hypertension, hyperlipidemia and cardiovascular disease Checking blood sugars at home? Yes. If yes, range: am 120- 130, 199 after eating Watching diet? Yes Physical Activity: Regular Hypoglycemic spells? Yes Any visual disturbance? No Chest pain? No New numbness, tingling or loss of sensation? Has chronic numbness in both feet, a little pain. Manages well with gabapentin Any recent foot problems, sores or rashes? No Any recent or sudden weight loss? No Any recent illness? No HBA1C: Hemoglobin A1C (%) Date Value 08/24/2017 8.9 04/09/2017 9.5 ) CMP: Glucose 125 08/24/2017 BUN 27 08/24/2017 BUN 25 09/04/2017 [facility] Creatinine 1.02 08/24/2017 Creat: 0.04 09/04/2017, GFR 75 [facility] Sodium (I-STAT) 140 08/24/2017 Potassium (I-STAT) 4.3 08/24/2017 Chloride 97 08/24/2017 CO2 31 08/24/2017 Protein, Total 6.8 08/24/2017 Albumin 3.0 08/24/2017 Calcium 9.1 08/24/2017 Alkaline Phosphatase 104 08/24/2017 Bilirubin, Total 0.2 08/24/2017 AST 29 08/24/2017 ALT 29 08/24/2017 Last 2 Encounter Wt Readings: Date: Wt: 08/21/2017 80.7 kg (178 lb) 06/15/2017 79.4 kg (175 lb) Chronic Constipation: while on pain meds. No problem off meds. 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 Developed leg edema. Admitted [facility]. 03/12/17 echo: mod LVH, EF 35%, global hypokinesis, no valvular heart disease, severe Pulmonary HTN 74mmHg, dilated vena cava. Dr. Chacon attmepted stent placement unsuccessfully. NSTEMI with elevated troponin. Bilateral Low Back Pain Without Sciatica/Ankylosing spondylitis: back pretty good. Doesn't bother much. BPH: started on Tadafil (also for erectile dysfunction). Hyperlipidemia: Taking medication consistently Yes Observing low cholesterol high fiber diet No Muscle aches No Stomach complaints/ diarrhea No Cholesterol, Total (mg/dL) Date Value 08/24/2017 177 09/16/2016 251 HDL Cholesterol (mg/dL) Date Value 08/24/2017 49 09/16/2016 59 LDL Cholesterol (mg/dL) Date Value 08/24/2017 114 09/16/2016 176 Triglyceride (mg/dL) Date Value 08/24/2017 70 09/16/[address] [facility]. Seeing specialist in [place]. 08/15/17 fracture radius in 2 places. Plate and screws 09/07/17 [facility]. Also hx right hip with minesh and screws. S/p right TKR 15 years ago. HISTORIES FAMILY HISTORY Problem Relation Age of Onset - Arthritis Mother - Coronary Artery Disease Mother - Diabetes Mother - Heart Mother - Hypertension Mother - Alcohol/Drug Father - Arthritis Father - Heart Father - Hypertension Father PAST MEDICAL HISTORY Diagnosis Date - Ankylosing spondylitis (HCC) - CAD (coronary artery disease) - Cellulitis - Constipation - Diabetes (HCC) - Gout - Hx of fracture multiple bones - Osteoarthritis PAST SURGICAL HISTORY Procedure Laterality Date - CORONARY ARTERY BYPASS GRAFT 04/12/2017 x 3 - HIP SURGERY HX Right pin - KNEE ARTHROSCOPY Left x2 - KNEE SURGERY HX Right TKR, right, arthoscopy x3 - TOE SURGERY HX Right Social History Marital status: Spouse name: Yun Years of education: Number of children: 2 Social History Main Topics Smoking status: Never Smoker Smokeless status: Current User Types: Chew Alcohol use: Yes Comment: seldom Drug use: No Sexual activity: Yes Partners with: Female Other Topics Concern Service No Blood Transfusions No Caffeine Concern No Comment:None Occupational Exposure No Hobby Hazards No Sleep Concern No Stress Concern No Weight Concern Yes Special Diet No Back Care No Exercise No Comment:No formal Bike Helmet No Seat Belt Yes Self-Exams No Above problem list and histories reviewed September 24, 2017 and updated as appropriate. Albert Davis PA-C REVIEW OF SYMPTOMS: General: denies fatigue, unusual weight loss or gain, fevers, chills. Weight stable. Energy ANDquot;mediumANDquot;. Sleep 6-7 hours, ANDquot;not badANDquot;. Trouble falling to sleep. Eyes: denies change in vision, +glaucoma, -cataracts. Seeing Dr. Stein. pierce. EENT: denies recurrent sinus infection, unusual nasal drainage, hoarsemess, sore throat, or recurrent sore in mouth or tongue. No dysphagia. Cardiovascular: denies chest pain , SOB, palpitation, irregular or racing heart beats, orthopnea, leg swelling, history of rheumatic fever or prior heart conditions Respiratory: denies unusual cough, SOB, wheezing, history of recurrent bronchitis, pneumonia or tuberculosis. Denies day time drowsiness. No loud Snoring. No hxsleep apnea. GI: denies difficulty swallowing, nausea, vomiting, change in appetite. No change in bowel habits. Denies constipation, diarrhea, rectal bleeding or hemorrhoids, incontinence. No history of GERD, PUD, jaundice/hepatitis, GB disease, diverticulosis, colorectal cancer, hernias. Kidney/Bladder: Denies frequency, burning. Nocturia: never, incontinence: none. Urine good Some erectile dysfunction. . No history of kidney stones, recurrent UTI or kidney infection. Skin: denies unusual rashes. No history of skin cancer, bleeding/changing moles, or unusual skin lesions. Neurologic: Denies recurrent MEZA, change in vision, hearing or smell, tremors, unusual weakness, loss of sensation, or difficulty with balance or gait. No history of epilepsy/convulsions, migraine, head/spinal injuries, or stroke/TIA. Psychiatric: denies unusual worry, moodiness, depression, suicidal ideation or unusual disturbance in relationships. No history of psychiatric illness. Endocrine: denies unusual thirst, hunger, excessive urination, change in skin or hair texture, emotional lability. No history of thryoid, pituitary or hormonal problems. Hematologic: denies unusual bleeding, bruising, or history of anemia or blood transfusion. Infections: denies risk factors for HIV, hepatitis or history of unusual infection. Immunizations are up to date. Musculoskeletal: denies unusual stiffness, muscles aches, joint pain, or swelling. Denies recurrent sprain or disruption of joints, debilitating arthritis, gout, or other musculoskeletal disease. Hx back injury, spinal stenosis, radiculopathy. EXAM: BP 174/86 Pulse 64 Temp 36.9 ?C (98.4 ?F) (Tympanic) Resp 16 Ht 174.5 cm (5' 8.7ANDquot;) Wt 80.3 kg (177 lb) BMI 26.37 kg/m2 176/86 on my check 148/81 0n true BP General appearance: Older man man, in no acute distress. Well nourished. Well groomed. Pleasant spirits. Respirations: regular, unlabored Color: pink to lips and nailbeds Skin: warm, dry, no unusual rashes or lesions Head: Normocephalic Eyes: sclerae and conjunctivae without injection or exudate, PERRLA, EOMI, corneal light reflex symmetric bilaterally. Ears: TM's and ear canals are clear bilaterally with normal landmarks, no swelling or deformity external ear Nose/Sinuses: Nose patent. No turbinate swelling. No active exudate. Maxillary and frontal sinuses nontender to percussion. Oropharynx: Lips, mucosa, and tongue free from lesions. Teeth are in good repair. Gums without inflammation. Oropharynx no exudate or injection. No tonsillar hypertrophy. Neck: Neck supple, no cervical lymphadenopathy; thyroid without mass or tenderness. Chest: normally shaped, equal expansion with breaths. Lungs: Lungs clear to auscultation and percussion. No crackles or wheezes. Heart: RRR without murmur, gallop, or rubs. S1 and S2 normal. Abd soft, nontender, normoactive bowel sounds throughout, no mass, no organomegaly. back FROM, no abnormal curvature. Extremities well formed, FROM and strength, no clubbing cyanosis or edema. Has cast on Left forearm. Fingers warm and pink with normal sensation and prompt capillary refill. Neuro grossly intact. Normal gait and balance. Able to squat without difficulty. DTR's 2+/4 symmetric upper and lower bilaterally. Rhomberg is negative. ASSESSMENT/PLAN: 1. Uncontrolled type 2 diabetes mellitus without complication, with long-term current use of insulin (HCC) - ICD9: 250.02, V58.67, ICD10: E11.65, Z79.4 (primary diagnosis) uncontrolled - Increase lEVEMIR TO 17u Qhs FROM 15u - Follow fasting and 2h PC evening meal blood sugars x 2 weeks and call or My Chart results. - CONSULT TO PHARMACY - HGB A1C - BASIC METABOLIC PNL 2. Arteriosclerotic heart disease (ASHD) - ICD9: 414.00, ICD10: I25.[address] Chacon. F/U surgeon in April 3. Mononeuropathy due to underlying disease - ICD9: 355.9, ICD10: G59 On gabapentin which helps 4. 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 Anne F/u in 3 months with labs prior 5. Benign prostatic hyperplasia with urinary frequency - ICD9: 600.01, 788.41, ICD10: N40.1, R35.0 chronic - Managed on Tadalafil 6. Bilateral low back pain without sciatica, unspecified chronicity - ICD9: 724.2, ICD10: M54.5 - Hx ankylosing spondyltiis - Symptoms controlled. F/u 3 months Patient (guardian) expressed understanding of instructions and agrees with plan. PASTOR White PA-C 09/24/2017 3:20 PM Signed Please return to the office on approximately 3 months. Open access hours are: Sunday 8 am-6 pm Sunday 8 am-4 pm Sunday 8 am-4 pm 8 am-6 pm Sunday 8 am-4 pm Referring Provider: SELF [200] Allergies As of Date: 09/24/2017 Noted Allergy Reaction LYRICA (PREGABALIN) 03/23/2017 7 - Swelling Date Reviewed: 09/24/2017 Reviewed by: Caryn Simpson LPN - Fully Assessed Reason for Visit: Establish Care [42] Primary Visit Diagnosis:Uncontrolled type 2 diabetes mellitus without complication, with long-term current use of insulin (HCC) [E11.65, Z79.4] Other Visit Diagnoses:Arteriosclerotic heart disease (ASHD) [I25.10] Mononeuropathy due to underlying disease [G59] 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] Benign prostatic hyperplasia with urinary frequency [N40.1, R35.0] Bilateral low back pain without sciatica, unspecified chronicity [M54.5] Order(s):lisinopril (ZESTRIL) 40 mg tabletTake 1 tablet by mouth once daily.Disp: 30 tabletRfl: 1 insulin detemir (LEVEMIR FLEXTOUCH) 100 unit/mL (3 mL) inpn injectionInject 17 Units subcutaneously daily at bedtime.Disp: 18 mLRfl: 3 Tadalafil (CIALIS) 20 mg tab(s)Take 1 tablet by mouth as needed.Disp: 30 tabletRfl: 5 CONSULT TO PHARMACY [19991102] Order #: [id number]: 1 HGB A1C [LTDVS1U] Order #: [id number] FUTURE BASIC METABOLIC PNL [SQBMP] Order #: [id number] FUTURE Prescriptions as of 09/24/2017 Sig: HYDROCODONE 5 MG-ACETAMINOPHE* Take 1 tablet by mouth every * DAILY MULTI ORAL Take 2 Each by mouth once rafita* CELECOXIB 200 MG CAPSULE Take 200 mg by mouth as neede* TADALAFIL 20 MG TABLET Take 1 tablet by mouth as nee* CARVEDILOL 3.125 MG TABLET Take 1 tablet by mouth twice * INSULIN LISPRO 100 UNIT/ML ESPINOSA* Inject 8 Units subcutaneously* PRAVASTATIN 80 MG TABLET GABAPENTIN 300 MG CAPSULE Take one capsule by mouth twi* ASPIRIN 81 MG TABLET,DELAYED * Take 1 tablet by mouth once d* Patient taking differently: Take 162 mg by mouth once rafita* FUROSEMIDE 40 MG TABLET Take 40 mg by mouth once jagdeep* NITROGLYCERIN 0.4 MG SUBLINGU* Dissolve 1 tablet under the t* LATANOPROST 0.005 % EYE DROPS Use 1 Drop in both eyes daily* LISINOPRIL 40 MG TABLET Take 1 tablet by mouth once d* INSULIN DETEMIR 100 UNIT/ML (* Inject 17 Units subcutaneousl* Problem List As Of Date 09/24/2017 Noted Resolved Uncontrolled type 2 diabetes mellitus without c*INVALID FOR* More... 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 Other instructions from your clinician: Please return to the office on approximately 3 months. Open access hours are: Sunday 8 am-6 pm Sunday 8 am-4 pm Sunday 8 am- 4 pm 8 am- 6 pm Sunday 8 am-4 pm Prescriptions ordered this encounter Disp Refills Start End LISINOPRIL 40 MG TABLET 30 t* 1 09/24/2017 Route: ORAL Sig: Take 1 tablet by mouth once daily. INSULIN DETEMIR 100 UNIT/ML (3 ML) S* 18 mL 3 09/24/2017 10/24/2017 Route: SUBCUTANEOUS Sig: Inject 17 Units subcutaneously daily at bedtime. TADALAFIL 20 MG TABLET 30 t* 5 09/24/2017 Route: ORAL Sig: Take 1 tablet by mouth as needed. Medications Discontinued During This Encounter benzonatate (TESSALON PERLES) 100 mg* 90 c* 3 03/27/2017 09/24/2017 Route: ORAL Sig: Take 1 capsule by mouth three times daily as needed for Cough. Disc: Reason for discontinue is not on file. Dextromethorphan HBr (ROBITUSSIN COU* 0 03/23/2017 09/24/2017 Class: Historical Med Sig: Takes one capsule as needed Disc: Reason for discontinue is not on file. tamsulosin ER (FLOMAX) 0.4 mg cp24 04/20/2017 09/24/2017 Class: Historical Med Route: ORAL Sig: Take 0.4 mg by mouth once daily. Disc: Reason for discontinue is not on file. traMADol (ULTRAM) 50 mg tablet 30 t* 0 03/06/2017 09/24/2017 Class: Call Rx Route: ORAL Sig: Take 1 tablet by mouth once daily. Disc: Reason for discontinue is not on file. lisinopril 2.5 mg tablet 08/21/2017 09/24/2017 Class: Med Update Route: ORAL Sig: Take 1.25 tablets by mouth twice daily. Disc: Reason for discontinue is not on file. insulin detemir (LEVEMIR FLEXTOUCH) * 03/23/2017 09/24/2017 Class: Historical Med Route: SUBCUTANEOUS Sig: Inject 28 Units subcutaneously daily at bedtime. Disc: Reason for discontinue is not on file. Tadalafil (CIALIS) 20 mg tab(s) 09/24/2017 Class: Historical Med Route: ORAL Sig: Take 20 mg by mouth as needed. Disc: Reason for discontinue is not on file. Disposition: Return in about 3 months (around 12/23/2017). Follow-up and Disposition History Recorded Classic SmartForms filed during this visit: Relatients Encounter Status:Closed by Aditya DAVIS PA-C on 09/24/17 PROGRESS Observed: 09/24/2017 Status: COMPLETED Source: [place] 6:53 AM [facility] REPOSITORY HNO ID: [id number] Author: Aditya Morton) Ryan Service: (none) Author Type: Physician Delivery Driver/Customer Service Type: Progress Notes Filed: 09/24/2017 6:41 PM Note Text: 61 year old male here to establish care. Prior PCP: Dr. Travis. 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 2 children son 31, daughter 33 Current concerns: 1. BP has been elevated in therapy, sometimes in 200s SBP. Notified ENVELOPE PATTERNMAKER Ziggy at [facility] who told not increase. Asymptomatic. No headache, dizziness, chest pain. Has blurred vision in left due to glaucoma. ACTIVE PROBLEM LIST 1. Uncontrolled Type 2 Diabetes Mellitus Without Complication, With Long-Term Current Use of Insulin (Hcc) x 12 years. A1c started 14%. Referred to pharmacist for management. Taking medication as directed consistently? Yes. Only taking Levemir Medical Issues / Complications: hypertension, hyperlipidemia and cardiovascular disease Checking blood sugars at home? Yes. If yes, range: am 120- 130, 199 after eating Watching diet? Yes Physical Activity: Regular Hypoglycemic spells? Yes Any visual disturbance? No Chest pain? No New numbness, tingling or loss of sensation? Has chronic numbness in both feet, a little pain. Manages well with gabapentin Any recent foot problems, sores or rashes? No Any recent or sudden weight loss? No Any recent illness? No HBA1C: Hemoglobin A1C (%) Date Value 08/24/2017 8.9 04/09/2017 9.5 ) CMP: Glucose 125 08/24/2017 BUN 27 08/24/2017 BUN 25 09/04/2017 [facility] Creatinine 1.02 08/24/2017 Creat: 0.04 09/04/2017, GFR 75 [facility] Sodium (I-STAT) 140 08/24/2017 Potassium (I-STAT) 4.3 08/24/2017 Chloride 97 08/24/2017 CO2 31 08/24/2017 Protein, Total 6.8 08/24/2017 Albumin 3.0 08/24/2017 Calcium 9.1 08/24/2017 Alkaline Phosphatase 104 08/24/2017 Bilirubin, Total 0.2 08/24/2017 AST 29 08/24/2017 ALT 29 08/24/2017 Last 2 Encounter Wt Readings: Date: Wt: 08/21/2017 80.7 kg (178 lb) 06/15/2017 79.4 kg (175 lb) Chronic Constipation: while on pain meds. No problem off meds. 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 Developed leg edema. Admitted [facility]. 03/12/17 echo: mod LVH, EF 35%, global hypokinesis, no valvular heart disease, severe Pulmonary HTN 74mmHg, dilated vena cava. Dr. Chacon attmepted stent placement unsuccessfully. NSTEMI with elevated troponin. Bilateral Low Back Pain Without Sciatica/Ankylosing spondylitis: back pretty good. Doesn't bother much. BPH: started on Tadafil (also for erectile dysfunction). Hyperlipidemia: Taking medication consistently Yes Observing low cholesterol high fiber diet No Muscle aches No Stomach complaints/ diarrhea No Cholesterol, Total (mg/dL) Date Value 08/24/2017 177 09/16/2016 251 HDL Cholesterol (mg/dL) Date Value 08/24/2017 49 09/16/2016 59 LDL Cholesterol (mg/dL) Date Value 08/24/2017 114 09/16/2016 176 Triglyceride (mg/dL) Date Value 08/24/2017 70 09/16/[address] [facility]. Seeing specialist in [place]. 08/15/17 fracture radius in 2 places. Plate and screws 09/07/17 [facility]. Also hx right hip with minesh and screws. S/p right TKR 15 years ago. HISTORIES FAMILY HISTORY Problem Relation Age of Onset - Arthritis Mother - Coronary Artery Disease Mother - Diabetes Mother - Heart Mother - Hypertension Mother - Alcohol/Drug Father - Arthritis Father - Heart Father - Hypertension Father PAST MEDICAL HISTORY Diagnosis Date - Ankylosing spondylitis (HCC) - CAD (coronary artery disease) - Cellulitis - Constipation - Diabetes (HCC) - Gout - Hx of fracture multiple bones - Osteoarthritis PAST SURGICAL HISTORY Procedure Laterality Date - CORONARY ARTERY BYPASS GRAFT 04/12/2017 x 3 - HIP SURGERY HX Right pin - KNEE ARTHROSCOPY Left x2 - KNEE SURGERY HX Right TKR, right, arthoscopy x3 - TOE SURGERY HX Right Social History Marital status: Spouse name: Yun Years of education: Number of children: 2 Social History Main Topics Smoking status: Never Smoker Smokeless status: Current User Types: Chew Alcohol use: Yes Comment: seldom Drug use: No Sexual activity: Yes Partners with: Female Other Topics Concern Service No Blood Transfusions No Caffeine Concern No Comment:None Occupational Exposure No Hobby Hazards No Sleep Concern No Stress Concern No Weight Concern Yes Special Diet No Back Care No Exercise No Comment:No formal Bike Helmet No Seat Belt Yes Self-Exams No Above problem list and histories reviewed September 24, 2017 and updated as appropriate. Albert Davis, PA-C REVIEW OF SYMPTOMS: General: denies fatigue, unusual weight loss or gain, fevers, chills. Weight stable. Energy medium. Sleep 6-7 hours, not bad. Trouble falling to sleep. Eyes: denies change in vision, +glaucoma, -cataracts. Seeing Dr. Stein. pierce. EENT: denies recurrent sinus infection, unusual nasal drainage, hoarsemess, sore throat, or recurrent sore in mouth or tongue. No dysphagia. Cardiovascular: denies chest pain , SOB, palpitation, irregular or racing heart beats, orthopnea, leg swelling, history of rheumatic fever or prior heart conditions Respiratory: denies unusual cough, SOB, wheezing, history of recurrent bronchitis, pneumonia or tuberculosis. Denies day time drowsiness. No loud Snoring. No hxsleep apnea. GI: denies difficulty swallowing, nausea, vomiting, change in appetite. No change in bowel habits. Denies constipation, diarrhea, rectal bleeding or hemorrhoids, incontinence. No history of GERD, PUD, jaundice/hepatitis, GB disease, diverticulosis, colorectal cancer, hernias. Kidney/Bladder: Denies frequency, burning. Nocturia: never, incontinence: none. Urine good Some erectile dysfunction. . No history of kidney stones, recurrent UTI or kidney infection. Skin: denies unusual rashes. No history of skin cancer, bleeding/changing moles, or unusual skin lesions. Neurologic: Denies recurrent MEZA, change in vision, hearing or smell, tremors, unusual weakness, loss of sensation, or difficulty with balance or gait. No history of epilepsy/convulsions, migraine, head/spinal injuries, or stroke/TIA. Psychiatric: denies unusual worry, moodiness, depression, suicidal ideation or unusual disturbance in relationships. No history of psychiatric illness. Endocrine: denies unusual thirst, hunger, excessive urination, change in skin or hair texture, emotional lability. No history of thryoid, pituitary or hormonal problems. Hematologic: denies unusual bleeding, bruising, or history of anemia or blood transfusion. Infections: denies risk factors for HIV, hepatitis or history of unusual infection. Immunizations are up to date. Musculoskeletal: denies unusual stiffness, muscles aches, joint pain, or swelling. Denies recurrent sprain or disruption of joints, debilitating arthritis, gout, or other musculoskeletal disease. Hx back injury, spinal stenosis, radiculopathy. EXAM: BP 174/ Pulse 64 Temp 36.9 ?C (98.4 ?F) (Tympanic) Resp 16 Ht 174.5 cm (5' 8.7) Wt 80.3 kg (177 lb) BMI 26.37 kg/m2 176/86 on my check 148/81 0n true BP General appearance: Older man man, in no acute distress. Well nourished. Well groomed. Pleasant spirits. Respirations: regular, unlabored Color: pink to lips and nailbeds Skin: warm, dry, no unusual rashes or lesions Head: Normocephalic Eyes: sclerae and conjunctivae without injection or exudate, PERRLA, EOMI, corneal light reflex symmetric bilaterally. Ears: TM's and ear canals are clear bilaterally with normal landmarks, no swelling or deformity external ear Nose/Sinuses: Nose patent. No turbinate swelling. No active exudate. Maxillary and frontal sinuses nontender to percussion. Oropharynx: Lips, mucosa, and tongue free from lesions. Teeth are in good repair. Gums without inflammation. Oropharynx no exudate or injection. No tonsillar hypertrophy. Neck: Neck supple, no cervical lymphadenopathy; thyroid without mass or tenderness. Chest: normally shaped, equal expansion with breaths. Lungs: Lungs clear to auscultation and percussion. No crackles or wheezes. Heart: RRR without murmur, gallop, or rubs. S1 and S2 normal. Abd soft, nontender, normoactive bowel sounds throughout, no mass, no organomegaly. back FROM, no abnormal curvature. Extremities well formed, FROM and strength, no clubbing cyanosis or edema. Has cast on Left forearm. Fingers warm and pink with normal sensation and prompt capillary refill. Neuro grossly intact. Normal gait and balance. Able to squat without difficulty. DTR's 2+/4 symmetric upper and lower bilaterally. Rhomberg is negative. ASSESSMENT/PLAN: 1. Uncontrolled type 2 diabetes mellitus without complication, with long-term current use of insulin (HCC) - ICD9: 250.02, V58.67, ICD10: E11.65, Z79.4 (primary diagnosis) uncontrolled - Increase lEVEMIR TO 17u Qhs FROM 15u - Follow fasting and 2h PC evening meal blood sugars x 2 weeks and call or My Chart results. - CONSULT TO PHARMACY - HGB A1C - BASIC METABOLIC PNL 2. Arteriosclerotic heart disease (ASHD) - ICD9: 414.00, ICD10: I25.[address] Chacon. F/U surgeon in April 3. Mononeuropathy due to underlying disease - ICD9: 355.9, ICD10: G59 On gabapentin which helps 4. 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 Anne F/u in 3 months with labs prior 5. Benign prostatic hyperplasia with urinary frequency - ICD9: 600.01, 788.41, ICD10: N40.1, R35.0 chronic - Managed on Tadalafil 6. Bilateral low back pain without sciatica, unspecified chronicity - ICD9: 724.2, ICD10: M54.5 - Hx ankylosing spondyltiis - Symptoms controlled. F/u 3 months Patient (guardian) expressed understanding of instructions and agrees with plan. Aditya Davis PA-C PROTIME Collected: 04/09/2017 Status: F Source: [facility] 11:50 [facility] REPOSITORY TYPE CODE TESTS RESULT OUT OF REFERENCE UNITS RANGE LAB GPTI(LOINC 9.0-11.5 sec ) Prothrombin Time 10.0 LAB GINR(LOINC ) INR 0.96 Result Comment: Standard Therapy 2.0-3.0 High Dose 2.5-3.5 Performed By: #### GPT #### [place] [address] CROSSMATCH X3/T AND S Collected: 04/09/2017 Status: F Source: [facility] 11:50 [facility] REPOSITORY TYPE CODE TESTS RESULT OUT OF REFERENCE UNITS RANGE LAB ABO(LOINC) O ABO Group LAB PLANNER INTERN(LOINC ) RH Type Negative LAB ABSCR(LOIN C) Antibody NEGATIVE Screen LAB BBCMT(LOIN C) Comment PAT specimen LAB UNIT1(LOIN C) Xmatch Unit 1 see below Result Comment: Compatible LAB UNIT2(LOINC) Xmatch Unit 2 see below Result Comment: Compatible LAB UNIT3(LOINC) Xmatch Unit 3 see below Result Comment: Compatible Performed By: #### T&C3 #### [place] [address] HEMOGRAM Collected: 04/09/2017 Status: F Source: [facility] 11:50 AM [facility] REPOSITORY TYPE CODE TESTS RESULT OUT OF REFERENCE UNITS RANGE LAB WBC(LOINC) 4.23-9.07 thou/cmm WBC 6.72 LAB RBC(LOINC) 4.63-6.08 mil/cmm Low RBC 4.29 LAB HGB(LOINC) 13.7-17.5 g/dL Low Hgb 12.6 LAB HCT(LOINC) 40.1-51.0 % Low Hct 37.6 LAB MCV(LOINC) 83.2-95.6 fl MCV 87.6 LAB MCH(LOINC) 25.7-32.2 pg MCH 29.4 LAB MCHC(LOINC) 32.3-36.5 % MCHC 33.5 LAB RDW(LOINC) 11.6-14.4 % RDW 13.2 LAB RDWSD(LOINC 36.1-45.8 fl ) RDW SD 42.0 LAB PLT(LOINC) 141-365 thou/cmm Platelet 241 LAB MPV(LOINC) 8.7-12.0 fl MPV 10.8 Performed By: #### CBC1 #### [place] [address] URINALYSIS ROUTINE Collected: 04/09/2017 Status: F Source: [facility] 11:50 AM [facility] REPOSITORY TYPE CODE TESTS RESULT OUT OF RANGE REFERENCE UNITS LAB COLOR(LOIN C) Urine Color YELLOW LAB APPUR(LOIN C) Urine Appearance CLEAR LAB GLUUR(LOIN Negative mg/dL C) Glucose Urine NEGATIVE LAB KETON(LOIN Negative mg/dL C) Ketone Urine NEGATIVE LAB HGBUR(LOIN Negative C) Hemoglobin,Urin NEGATIVE e LAB PROTU(LOIN Negative mg/dL C) Abnormal Protein Urine 100 LAB NITRI(LOIN Negative C) Nitrites Urine NEGATIVE LAB BILIU(LOIN Negative C) Bilirubin Urine NEGATIVE LAB SPG(LOINC) 1.005-1.030 Specific 1.009 [place], Ur LAB PHUR(LOINC 5.0-8.0 ) pH,Urine 6.5 LAB UROBI(LOIN 0.0-1.0 EU/dL C) Urobilinogen,Ur 0.2 LAB LEUKO(LOIN Negative C) Leukocytes NEGATIVE Esterase LAB RBCU1(LOIN 0.0-5.0 /hpf C) RBC,Urine 1.0 LAB WBCU1(LOIN 0.0-5.0 /hpf C) WBC, Urine 0.3 LAB EPIT1(LOIN 0.0-5.0 /hpf C) Ep Cells Urine 0.1 LAB BACT1(LOIN None C) Bacteria Urine NONE LAB HYCA1(LOIN 0.0-1.0 /lpf C) Hyaline Cast 0.0 Performed By: #### URIN2 #### [facility] [address] [place], [place] [address] GREEN VENIPUNCTURE Collected: 04/09/2017 Status: F Source: [facility] 11:39 AM [facility]ALTH SYSTEM REPOSITORY TYPE CODE TESTS RESULT OUT OF REFERENCE UNITS RANGE LAB GVENP(LOIN C) Green Venipuncture COMPLETED Performed By: #### GVENP #### [facility] [address] [place] [address] CHEST 2 VIEWS Observed: 04/09/2017 Status: F Source: [facility] 11:23 AM HEALTH SYSTEM REPOSITORY Performed at [facility] APPROVED BY: Osmar Granados MD EXAMINATION: CHEST RADIOGRAPH (2 VIEW FRONTAL & LATERAL) Clinical History: The patient has a history of coronary artery disease. The patient is undergoing preoperative evaluation prior to coronary artery bypass surgery. M: XC2_3 Comparison: Outside [facility] the chest from [facility] dated 04/05/2017 RESULT: Lines, tubes, and devices: None. Lungs and pleura: The costophrenic angles are clear bilaterally. There is a focal area of increased density in the inferior lateral aspect of the left hemithorax on the PA view. This appears to corre spond to areas of peripheral scarring seen in the lingula and left lower lobe on CT of the chest. No focal infiltrates are identified. Cardiomediastinal silhouette: The cardiac silhouette is at the upper limits normal for size. The thoracic aorta and mediastinum are unremarkable. The pulmonary vascularity is within normal limits. Other: IMPRESSION: There is no acute disease. ALLERGIES ALLERGIES DATE TYPE / CODE NAME / CODE REACTION SEVERITY SOURCE 08/02/2018 Drug pregabalin/K61047 Angioedema Unknown [place] Allergy/416 0083(RXNORM) Community 602904([facility] ED CT) Repository 03/23/2017 DRUG PREGABALIN SWELLING [facility] INGREDI/419 Main [place] 289007([facility] ED CT) NG/00142610 PREGABALIN [facility] 6[facility] Repository NG/91628168 LYR[facility] 6([employer] CT) Repository ENCOUNTERS ENCOUNTERS ADMIT/DISCHARGE ACCOUNT NUMBER ADMITTING ENCOUNTER LOCATION SOURCE CLASS 09/11/2018 [id number] Ambulatory [facility] ding:LAB.FUT Repository URE 08/12/2018/08/13/20 [id number] Ambulatory [address] Repository 08/08/2018/08/08/20 [id number] Ambulatory [address] Repository 08/06/2018/08/07/20 [id number] Ambulatory [address] Repository 08/06/2018 [id number] Ambulatory [facility] ding:CVS Repository 08/02/2018/08/02/20 [id number] Ambulatory BMSBuilding: [place] 18 [facility] Repository 07/30/2018 [id number] Ambulatory [facility] MEDICAL Repository CENTERBuildi ng:AKUF 07/25/2018/07/25/20 [id number] Ambulatory [address] Repository 07/25/2018/07/26/20 [id number] Ambulatory [address] Repository 07/17/2018/07/22/20 [id number] Sudhir, [address] Repository ng:H.5BRoom: [id number]: 07/15/2018 [id number] Ambulatory [facility] ding:POLAB3 Repository 07/15/2018/07/15/20 [id number] Ambulatory BMSBuilding: [place] 18 [facility] Repository 07/15/2018 [id number] [facility] Rep[facility] ng:H.ONC 07/12/2018 [id number] Ambulatory [facility] Repository ng:H.ONC 07/11/2018/07/15/20 [id number] Ambulatory [address] Repository 07/10/2018 [id number] Ambulatory [facility] Repository ng:H.ONC 07/09/2018/07/26/20 [id number] Ambulatory [place] ding:CVS Repository 07/08/2018 [id number] Ambulatory [facility] CenterBuildi Repository ng:H.ONC 07/04/2018 [id number] [facility] ng:H.PAT 07/03/2018/07/03/20 [id number] Ambulatory BMSBuilding: [place] 18 [facility] Repository 06/29/2018/06/29/20 [id number] Emergency [address] ding:ED Repository 06/03/2018/06/26/20 [id number] Ambulatory [address] ding:WC Repository 05/29/2018/05/29/20 [id number] Emergency [address] ding:ED Repository 05/27/2018 [id number] Ambulatory [facility] ding:LAB Repository 05/27/2018/05/27/20 [id number] Ambulatory BMSBuilding: [place] 18 [facility] Repository 05/20/2018/05/20/20 [id number] Ambulatory BBuilding:RA Mendez [address] [place] [address] Repository 05/03/2018/05/06/20 [id number] Ambulatory [address] Repository 04/27/2018 [id number] Ambulatory [facility] ding:LAB Repository 04/17/2018/04/22/20 [id number] Ambulatory [address] Repository 04/17/2018/04/17/20 [id number] Ambulatory [address] Repository 04/04/2018/04/05/20 [id number] Ambulatory [address] Repository 03/28/2018/03/29/20 [id number] Ambulatory [address] Repository 03/21/2018/03/22/20 [id number] Ambulatory [address] Repository 03/14/2018/03/15/20 [id number] Ambulatory [address] Repository 03/12/2018/03/13/20 [id number] Ambulatory [address] [place] Repository 03/04/2018/03/04/20 [id number] Ambulatory [address] [place] Repository 03/04/2018/03/05/20 [id number] Ambulatory [address] [place] Repository 03/04/2018/03/05/20 [id number] Ambulatory [address] [place] Repository 03/01/2018 [id number] Ambulatory BMSBuilding: [place] BMS.[facility] Repository 02/25/2018/02/26/20 [id number] Ambulatory [address] Repository 02/23/2018/02/24/20 [id number] Ambulatory [address] Repository 02/20/2018/02/21/20 [id number] Ambulatory [address] Repository 02/20/2018/02/21/20 [id number] Ambulatory [address] Repository 02/20/2018/02/22/20 [id number] Ambulatory [address] Repository 02/20/2018 [id number] [facility] ng:H.SD 02/18/2018/02/19/20 [id number] Ambulatory [address] Repository 02/15/2018/02/16/20 [id number] Ambulatory [address] Repository 02/15/2018 [id number] [facility] ng:H.ONC 02/14/2018/02/15/20 [id number] Ambulatory [address] Repository 02/13/2018 [id number] Ambulatory BMSBuilding: [place] BMS[facility] Repository 02/13/2018 [id number] [facility] ng:H.ONC 02/12/2018 [id number] [facility] ng:H.ONC 02/06/2018 [id number] [facility] ng:H.PAT 02/04/2018/02/15/20 [id number] Ambulatory [address] Repository 02/04/2018 [id number] Ambulatory [facility] ding:LAB.FUT Repository URE 01/31/2018/02/01/20 [id number] Ambulatory [address] Repository 01/15/2018 [id number] Ambulatory [facility] ding:CVS Repository 01/15/2018/01/16/20 [id number] Ambulatory BMSBuilding: [place] 18 [facility] Repository 12/19/2017/12/20/19 [id number] Ambulatory BMSBuilding: [place] 18 [facility] Repository 12/14/2017/12/15/19 [id number] Ambulatory [address] ding:OT Repository 11/14/2017/11/15/19 [id number] Ambulatory BMSBuilding: [place] 18 BMS.[facility] Repository 11/13/2017 [id number] Ambulatory BMSBuilding: [place] BMS.[facility] Repository 10/29/2017/10/30/19 [id number] Ambulatory [address] Repository 10/25/2017 [id number] Ambulatory [facility] ding:CT Repository 10/23/2017/10/26/19 [id number] Ambulatory [address] Repository 09/24/2017/09/24/19 [id number] Ambulatory [address] Repository 04/12/2017/04/19/20 [id number] [facility], Inpatient [address] MEDICAL Repository CENTERBuildi nRoom: 4214Bed: 01 PAYERS PAYERS ENCOUNTER GUARANTOR PAYER SUBSCRIBER SOURCE 09/11/2018 MAURI L Primary MAURI L [place] [id number] Insurance:ANTHEMPolic MCINTYREDOB: [facility] y Number: [id number] [id number] Repository 59219Wkv: 330) Date:0862-23-90VN [phone] () 660105LDWXYTE, [place] [address]VM: 09/11/2018 Secondary NOT GIVENUNK [place] Insurance:SELF PAY [facility] Number: Effective Repository Date:2018-08-29 08/06/2018 MAURI L Primary MAURI L [place] [id number] Insurance:ANTHEMPolic MCINTYREDOB: Community ALEXA y Number: [id number], [place] [id number] Repository 32535Pvz: (330) Date:8132-59-68FL [phone] () 789260XNSXHTG [place] [address]AG: 08/06/2018 Secondary NOT GIVENUNK [place] Insurance:SELF PAY [facility] Number: Effective Repository Date:2018-07-27 08/02/2018 MAURI L Primary MAURI L [place] [id number] Insurance:ANTHEMPolic MCINTYREDOB: [facility] ALEXA y Number: [id number], [place] [id number] Repository 19762Iex: (330) Date:7171-38-97WJ [phone] () 175164OMMRXDJ [place] [address]AC: 08/02/2018 Secondary NOT GIVENUNK [place] Insurance:SELF PAY [facility] Number: Effective Repository Date:2018-08-02 07/30/2018 MAURI L Primary MAURI L [facility] MCINTYREDOB: Insurance:BLUE CARD [facility] FLINTNTYREDOB: Health System PPOPolicy Number: [id number] [facility] [id number] [place], [place] Date: [address]Yvc: () 07/17/2018 MAURI Primary MAURI L [facility] [id number] Insurance:ELISSA [facility]AC[facility] Number: Repository [place] [id number] 21927Ztm: (330) Date:9111-50-12HW [phone] () 281768YVQFMQK, [place] [address]EH: 07/15/2018 MAURI L Primary MAURI [place] [id number] Insurance:ANTHEMPolic MCINTYREDOB: Community ALEXA y Number: [id number], [place] [id number] Repository 49[address]Zdg: (330) Date:4680-09-04DU [phone] () 419512NUAVVWO, [place] [address]WM: 07/15/2018 Secondary NOT GIVENUNK [place] Insurance:SELF PAY [facility] Number: Effective Repository Date:2018-07-15 07/15/2018 MAURI L Primary MAURI Duncanoster [id number] Insurance:ANTHEMPolic MCINTYREDOB: [facility] ALEXA y Number: [id number], [place] [id number] Repository 04264Ffl: (330) Date:2935-18-78NV [phone] () 776045GSVMCHI, [place] [address]OS: 07/15/2018 Secondary NOT GIVENUNK [place] Insurance:SELF PAY [facility] Number: Effective Repository Date:2018-07-15 07/15/2018 MAURI Primary MAURI Diaz [id number] Number: Repository [place] [id number] [address]37[address]One: (330) Date:2397-95-32NE [phone] () 591703LDRGUKO, [place] [address]LI: 07/12/2018 MAURI Primary MAURI Diaz [facility] [id number] Insurance:[facility] Number: Repository [place] [id number] 27[address]Gub: (330) Date:5764-25-07JL [phone] () 623452CEFFXWN, [place] [address]MJ: 07/10/2018 MAURI Primary MAURI Delcid [facility] [id number] Insurance:[facility] Montgomeryy Number: Repository [facility] HOS[facility]ITALDEMETRIScurlew[place] [id number] [address]Czi: (330) Date:2275-33-08CN [phone] () [address] [place] [address]KT: 07/09/2018 MAURI L Primary MAURI L [place] [id number] Insurance:ANTHEMPolic MCINTYREDOB: [facility] ALEXA y Number: [id number], [place] [id number] Repository 926[address]Vgw: (330) Date:0880-30-62WP [phone] () [address] [place] [address]67[address]ZU: 07/09/2018 Secondary NOT GIVENUNK [place] Insurance:SELF PAY [facility] Number: Effective Repository Date:2018-06-27 07/08/2018 MAURI Primary MAURI Delcid [facility] [id number] Insurance:[facility] Montgomeryy Number: Repository [facility] H[facility]ITALLUIGIStat[place] [id number] 836[address]Zmz: (330) Date:9801-39-61MY [phone] () [address] [place] [address]NI: 07/04/2018 MAURI Primary MAURI Delcid [facility] [id number] Insurance:[facility] Number: Repository [place] [id number] 12[address]Zwz: (330) Date:9329-60-34PL [phone] () [address]SUQ[address] [place] [address]PI: 07/03/2018 MAURI L Primary MAURI Delcid [place] [id number] Insurance:ANTHEMPolic MCINTYREDOB: Community ALEXA y Number: [id number], [place] [id number] Repository 304[address]Rev: (330) Date:3884-30-75BT [phone] () [address] [place] [address]EM: 07/03/2018 Secondary NOT GIVENUNK [place] Insurance:SELF PAY [facility] Number: Effective Repository Date:2018-07-03 06/29/2018 MAURI L Primary MAURI L [place] [id number] Insurance:ANTHEMPolic MCINTYREDOB: Community ALEXA y Number: [id number], [place] [id number] Repository [address]Ypp: (330) Date:0408-68-42GR [phone] () [address] [place] [address] 05277EJ: 06/29/2018 Secondary NOT GIVENUNK [place] Insurance:SELF PAY [facility] Number: Effective Repository Date:2018-06-29 06/03/2018 MAURI L Primary MAURI L [place] [id number] Insurance:ANTHEMPolic MCINTYREDOB: Community ALEXA y Number: [id number], [place] [id number] Repository [address]Okl: (330) Date:5718-60-03TJ [phone] () [id number] [place] [address] 108[address]OO: 06/03/2018 Secondary NOT GIVENUNK [place] Insurance:SELF PAY [facility] Number: Effective Repository Date:2018-05-31 05/29/2018 MAURI L Primary MAURI L [place] [id number] Insurance:OBWC MCINTYREDOB: Community ALEXA DARRYL MEDICAL [id number], [place] ADMINPolic Number: Repository [id number]: 330 [id number] [phone] () Date: [place], [place] [address]PG: 05/29/2018 Secondary MAURI L [place] Insurance:ANTHEMPolic MCINTYREDOB: Community y Number: [id number] Hospital [id number] Repository Date:2722-98-86FD [address] [place] [address]MY: 05/29/2018 Tertiary NOT GIVENUNK [place] Insurance:SELF PAY [facility] Number: Effective Repository Date:2018-05-29 05/27/2018 MAURI L Primary MAURI L [place] [id number] Insurance:ANTHEMPolic MCINTYREDOB: [facility] ALEXA y Number: [id number], [place] [id number] Repository 538[address]Vni: (330) Date:6323-19-11DH [phone] () [address] [place] [address] 664[address]GY: 05/27/2018 Secondary NOT GIVENUNK [place] Insurance:SELF PAY [facility] Number: Effective Repository Date:2018-05-27 05/27/2018 MAURI L Primary MAURI L [place] [id number] Insurance:ANTHEMPolic MCINTYREDOB: [facility] ALEXA y Number: [id number], [place] [id number] Repository [address]Vlq: 330) Date:4308-27-09AK [phone] () [address] [place] [address] 28929PI: 05/27/2018 Secondary NOT GIVENUNK [place] Insurance:SELF PAY [facility] Number: Effective Repository Date:2018-05-27 05/20/2018 MAURI L Primary Insurance:[facility] MCINTYREDOB: SPOONERPolicy Number: MCINTYREDOB: Foundation [id number] Repository ALEXA Date:2017-03-10 [place], [place] 8405-43-17Ijsr [place] [address]Ejv: 980[address]Psy: (330) Name:[id number] MAC [phone] [place] ()Tel: (186) (HP)Tel: [phone]: (WP) [phone] ([phone] 04/27/2018 MAURI L Primary MAURI Juan [id number] [facility] MCINTYREDOB: [facility] Number: [id number], [place] [id number] Repository 936[address]Cxq: (407) Date:2106-44-88GB [phone] () 270883HGRAMKB, [place] [address]PC: 04/27/2018 Secondary NOT GIVENUNK [place] Insurance:SELF PAY [facility] Number: Effective Repository Date:2018-04-27 03/01/2018 MAURI L Primary MAURI Juan [id number] Insurance:OB MCINTYREDOB: [facility] [id number], [place] ADMINPolicy Number: Repository [address]Cvy: (237) [id number] [phone] () Date: [place] [address]IV: 03/01/2018 Secondary NOT GIVENUNK [place] Insurance:SELF PAY [facility] Number: Effective Repository Date:2018-01-15 02/20/2018 MAURI Primary MAURI Diaz Medical [id number] Insurance:[facility] OTHERMount [facility] Medical Centericy Number: Repository [place] [id number] [address]Egh: 330) Date:3862-36-21BB [phone] () 205108KSMGBUK, [place] [address]QV: 02/15/2018 MAURI Primary MAURI Diaz Medical [id number] Insurance:[facility] OTHERPolicy Number: Repository [facility] [place] [id number] 95[address]Qvz: (330) Date:4559-19-30WT [phone] () [address] [place] [address] [place] [address]NF: 02/13/2018 MAURI L Primary MAURI Juan [id number] Insurance:[facility]THMile [facility]uff Medical CenterOB: [facility] Number: [id number] Hospital RDDEMETRIS ia [id number] Repository 137[address]Mvw: (330) Date:2958-17-80JU [phone] (HP) 996875GSILRDD [place] [address]YX: 02/13/2018 Secondary NOT GIVENUNK [place] Insurance:SELF PAY [facility] Number: Effective Repository Date:2018-02-06 02/13/2018 MAURI Primary MAURIGABRIEL Diaz Medical [id number] Insurance:[facility] OTHERPolicy Number: Repository [facility]OSPITALDEMETRIScurlew[place] [id number] [address]Byj: (330) Date:7906-70-76FB [phone] () 442554ITWFIRT [place] [address]DV: 02/12/2018 MAURI Primary MAURIGABRIEL Diaz Medical [id number] Insurance:[facility] OTHERMount Graham Regional Medical Centericy Number: Repository MAURA [place] [id number] 84[address]Qfs: (330) Date:4700-91-25EP [phone] () 299144UNLSNJP [place] [address]AI: 02/06/2018 MAURI Primary MAURI L [facility] CenterE4547 Insurance:[facility] OTHERMount Graham Regional Medical Centericy Number: Repository [place] [id number] [address]Blb: (330) Date:5189-57-92FN [phone] () 546366HRTPACO, [place] [address]UC: 02/04/2018 MAURI Delcid Primary MAURI [place]oster [id number] Insurance:ANTHEMPolic MCINTYREDOB: Community ALEXA y Number: [id number], [place] [id number] Repository [address]300[address]Djm: 330) Date:8498-40-22PB [phone] () [address] [place] [address] 29931RZ: 02/04/2018 Secondary NOT GIVENUNK [place] Insurance:SELF PAY [facility] Number: Effective Repository Date:2018-02-04 01/15/2018 MAURI Delcid Primary MAURI Juan [id number] Insurance:ANTHEMPolic MCINTYREDOB: Community ALEXA y Number: [id number], [place] [id number] Repository 327[address]Yhv: (330) Date:5217-80-87LF [phone] () [address] [place] [address]2425QF: 01/15/2018 Secondary NOT GIVENUNK [place] Insurance:SELF PAY [facility] Number: Effective Repository Date:2018-01-15 01/15/2018 MAURI Delcid Primary MAURI Duncanoster [id number] Insurance:ANTHEMPolic MCINTYREDOB: Community ALEXA y Number: [id number], [place] [id number] Repository 98[address]Stg: (330) Date:9434-87-42FN [phone] () [address] [place] [address] 37[address]QV: 01/15/2018 Secondary NOT GIVENUNK [place] Insurance:SELF PAY [facility] Number: Effective Repository Date:2018-01-15 12/19/2017 MAURI Delcid Primary MAURI [place]oster [id number] Insurance:ANTHEMPolic MCINTYREDOB: Community ALEXA y Number: [id number], [place] [id number] Repository [address]40[address]Eff: (330) Date:1808-23-65FY [phone] () 184669JFRRSWN, [place] [address]GE: 12/19/2017 Secondary NOT GIVENUNK [place] Insurance:SELF PAY [facility] Number: Effective Repository Date:2017-12-19 12/14/2017 MAURI L Primary MAURI L [place] [id number] Insurance:OB MCINTYREDOB: Community ALEXA DARRYL MEDICAL [id number], [place] ADMINPolicy Number: Repository 32692Hcv: (264) [id number] [phone] () Date: [place], [place] [address]WO: 12/14/2017 Secondary NOT GIVENUNK [place] Insurance:SELF PAY [facility] Number: Effective Repository Date:2017-11-21 11/14/2017 MAURI L Primary MAURI L [place] [id number] Insurance:ANTHEMPolic MCINTYREDOB: Community ALEXA y Number: [id number], [place] [id number] Repository [address]Ysw: (330) Date:3466-01-65XW [phone] () 185272FRSBVQC, [place] [address]CW: 11/14/2017 Secondary NOT GIVENUNK [place] Insurance:SELF PAY [facility] Number: Effective Repository Date:2017-11-14 11/13/2017 MAURI L Primary MAURI L [place] [id number] Insurance:ANTHEMPolic MCINTYREDOB: Community ALEXA y Number: [id number], [place] [id number] Repository [address]Urj: (330) Date:9759-40-85HP [phone] () 430574TRVJVKJ, [place] [address]RJ: 11/13/2017 Secondary NOT GIVENUNK [place] Insurance:SELF PAY [facility] Number: Effective Repository Date:2017-10-30 10/25/2017 MAURI L Primary MAURI L [place] [id number] Insurance:ANTHEMPolic [facility] FLINTNTEDOB: [facility] Number: [id number] VA HospitalDEMETRIS [place] [id number] Repository 93[address]Znq: (330) Date:7888-37-45PB [phone] (HP) 994578NCOJGNX, [place] [address]XB: 10/25/2017 Secondary NOT GIVENUNK [place] Insurance:SELF PAY [facility] Number: Effective Repository Date:2017-10-18 04/12/2017 MAURI L Primary MAURI L [facility] CenterYREDOB: Insurance:[facility]HEM BLUE MEMOR[facility] HEALTHCAREEDOB: Health System [id number] [facility] [id number] Repository ALEXA Number: [facility] HOSPITALBERNARDOSCALY [place] [id number] 12367Kun: (330) Date:[phone] (HP) [address]679NJCEJKZSOL, [place] [address]RT: 000-0000
== END ==
PROVIDERS: Family Provider Physician Assistant; PCP Physician Assistant; Referring Provider Internal Medicine Nephrology; Visit Provider Internal Medicine Nephrology
DX: N18.3 Chronic kidney disease, stage 3 (moderate) (principal); D63.1 Anemia in chronic kidney disease
CPT/HCPCS: 36415; 80069; 81002; 82043; 82306; 82570; 83970; 84156; 85027

== ENCOUNTER → 2019-01-10 12:46 | Outpatient (CLI) | payer BC, MEDICAID, SELFPAY ==
[2018-12-18 16:08] VITALS: BMI 25.9
--- NOTE | 2019-01-10 12:52 | ECHOD_ITS ---
Reason For Study: CAD/ASHD Procedure This was a 2D Doppler, Color Flow transthoracic echocardiogram. The exam was of adequate technical quality. Exam performed in department. Left Ventricle Mildly dilated left ventricle. Moderate concentric left ventricular hypertrophy. Mild to moderate segmental systolic dysfunction (see wall motion). The estimated ejection fraction is 40 %. There is evidence of diastolic dysfunction. Infero-Basal: Akinetic. Basal inferoseptal: Hypokinetic. Mid- Lateral : Hypokinetic. Mid-Posterior: Hypokinetic. Mid-Inferior: Akinetic. Inferior Wayne : Hypokinetic. Right Ventricle Normal RV size. Normal systolic function. Atria The left atrium is mildly enlarged. The right atrium is mildly enlarged. No doppler evidence for ASD. Mitral Valve There is no mitral annular calcification. Mild diffuse mitral valve thickening. Mild papillary muscle dysfunction of the mitral valve. Mild (1+) mitral valve insufficiency. Tricuspid Valve Normal tricuspid valve. Mild tricuspid valve insufficiency. Right ventricular systolic pressure estimated to be 58 mmHg. Aortic Valve Trisinus/trileaflet aortic valve. Mild focal aortic valve calcification. Mild (1+) aortic valve insufficiency. Pulmonic Valve The pulmonic valve is not well visualized. Mild (1+) pulmonic valve insufficiency. Great Vessels Normal sized aortic root. Mild atherosclerosis of the ascending aorta. Pericardium/Pleural No pericardial effusion. MMode/2D Measurements & Calculations LVIDd: 5.9 cm IVSd: 1.7 cm Ao root diam: 3.0 cm LVIDs: 4.5 cm LVPWd: 1.5 cm RVDd: 5.1 cm FS: 22.9 % LAV(MOD-bp): 69.2 ml LVAd ap4: 43.3 cm2 SV(MOD-sp4): 75.9 ml LAV(MOD-bp) Indexed: 34.7 ml/m2 EDV(MOD-sp4): 157.8 ml LAV(MOD-sp2): 80.1 ml EDV(sp4-el): 161.2 ml LAV(MOD-sp4): 54.9 ml LVAs ap4: 28.1 cm2 ESV(MOD-sp4): 81.9 ml ESV(sp4-el): 79.8 ml EF(MOD-sp4): 48.1 % EF(sp4-el): 50.5 % SV(sp4-el): 81.3 ml LA A4 area: 19.8 cm2 LA dimension(2D): 4.3 cm RA A4 area: 21.9 cm2 Doppler Measurements & Calculations MV E max jared: 113.5 cm/sec Lat Peak E' Jared: 3.5 cm/sec Med Peak E' Jared: 2.3 cm/sec MV A max jared: 91.4 cm/sec E/E' lat: 32.6 E/E' med: 48.8 MV E/A: 1.2 Ao V2 max: 144.2 cm/sec AI max jared: 478.2 cm/sec LV V1 max: 92.1 cm/sec Ao max P.3 mmHg AI max P.5 mmHg LV V1 max P.4 mmHg Ao V2 mean: 103.5 cm/sec Ao mean P.7 mmHg AI dec slope: 311.2 cm/sec2 Ao V2 VTI: 33.8 cm AI P1/2t: 450.0 msec PA V2 max: 125.5 cm/sec TR max jared: 369.1 cm/sec TR max P.5 mmHg Interpretation Summary Mildly dilated left ventricle. Mild to moderate segmental systolic dysfunction (see wall motion). The estimated ejection fraction is 40 %. Moderate concentric left ventricular hypertrophy. The left atrium is mildly enlarged. The right atrium is mildly enlarged. Mild diffuse mitral valve thickening. Mild papillary muscle dysfunction of the mitral valve. Mild (1+) mitral valve insufficiency. Mild tricuspid valve insufficiency. Mild focal aortic valve calcification. Mild (1+) aortic valve insufficiency. Mild (1+) pulmonic valve insufficiency. Mild atherosclerosis of the ascending aorta. Right ventricular systolic pressure estimated to be 58 mmHg. There is evidence of diastolic dysfunction. Ordering Physician: Lee Chacon Referring Physician: Blade Teixeira Performed By: Leah Larkin, JUNAID, RVT
== END ==
PROVIDERS: Family Provider Family Medicine; PCP Family Medicine; Referring Provider Internal Medicine Cardiovascular Disease; Visit Provider Internal Medicine Cardiovascular Disease
DX: I25.10 Atherosclerotic heart disease of native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 angina pectoris (principal); E78.5 Hyperlipidemia, unspecified; I25.5 Ischemic cardiomyopathy; I50.22 Chronic systolic (congestive) heart failure; Z95.1 Presence of aortocoronary bypass graft
CPT/HCPCS: 93306

== ENCOUNTER → 2019-01-24 09:27 | Outpatient (CLI) | payer BC, SELFPAY ==
[2018-12-18 16:08] VITALS: BMI 25.9
[2019-01-24 10:22] LABS: AST(SGOT) 45 U/L (15-37); Alanine Aminotransfer ALT/SGPT 96 U/L (16-61); Albumin, Serum 2.3 g/dL (3.2-5.0); Alkaline Phosphatase 118 U/L (45-117); Anion Gap 6 (5-15); BUN 78 mg/dL (7-18); BUN/Creat Ratio 39.4 RATIO (10-20); Bilirubin, Direct 0.09 mg/dL (0.00-0.30); Calcium,Total 8.2 mg/dL (8.5-10.1); Chloride 103 mmol/L (98-107); Cholesterol 243 mg/dL (200); Creatinine, Serum 1.98 mg/dL (0.70-1.30); EST Glomerular Filtration Rate 37 mL/min (>60); Est Glom Filt Rate - Afr Amer 44 mL/min (>60); Globulin 3.4 g/dL (2.2-4.2); Glucose 339 mg/dL (74-106); High Density Lipoprotein 57 mg/dL; Potassium 5.5 mmol/L (3.5-5.1); Protein, Total 5.7 g/dL (6.4-8.2); Sodium Level 135 mmol/L (136-145); Triglycerides 190 mg/dL; Very Low Density Lipoprotein 38 mg/dL (5-40)
== END ==
PROVIDERS: Family Provider Family Medicine; PCP Family Medicine; Referring Provider Internal Medicine Cardiovascular Disease; Visit Provider Internal Medicine Cardiovascular Disease
DX: E78.5 Hyperlipidemia, unspecified (principal); I25.10 Atherosclerotic heart disease of native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 angina pectoris; I25.5 Ischemic cardiomyopathy; I10 Essential (primary) hypertension; Z95.1 Presence of aortocoronary bypass graft
CPT/HCPCS: 36415; 80048; 80061; 80076

== ENCOUNTER 2019-03-20 10:56 | Emergency (ER) | payer BC, SELFPAY ==
[2018-12-18 16:08] VITALS: BMI 25.9
[2019-03-20 10:57] VITALS: BP 121/68; PULSE 60; RESP 15; TEMP 36.6; O2SAT 94; BMI 26.1
--- NOTE | 2019-03-20 11:51 | ED.DCSUM_ITS ---
History of Present Illness Chief Complaint: Upper Extremity Injury Informant: Patient, Family Onset: Days - 4- Context: Gradual Onset Timing: Continuous Quality: achy, sore Location: neck, worse on left Current Severity: Moderate Maximum Severity: Moderate Worsened by: turning head, movement in general Relieved by: remaining still Associated Symptoms: tingling in left fingers 2-4 this AM, gone now Narrative: Patient states this past weekend, he was mowing the grass on his tractor and while doing this was trying to get branches overhead out of the way with his arms, his tractor is hydrostatic and it suddenly jerked, and 1 of his arms was on a branch and was jerked backwards. He did not have any immediate discomfort but was sore the next day, and had still more pain in his neck and shoulder/trapezius area the following day and the symptoms have persisted. No chest pain or shortness of breath. No weakness in his extremities. A little tingling in his left fingers today prompted a visit here to the ER. The tingling is now gone. - Past Medical History (1) Ankylosing spondylitis Status: Chronic (2) Atherosclerosis of [place] coronary artery of [place] heart without angina pectoris Status: Chronic Comment: S/P surgery with CARTY to LAD, SVG to OM system, and SVG to PDA in March [address] [facility]; (3) CHF (congestive heart failure) Status: Chronic (4) DM2 (diabetes mellitus, type 2) Status: Chronic (5) Gout Status: Chronic (6) Pulmonary HTN Status: Chronic (7) Pure hypercholesterolemia Status: Chronic (8) Renal insufficiency Status: Chronic (9) Valvular heart disease Status: Chronic (10) Ventricular tachyarrhythmia Status: Chronic Past Medical History - Allergies and Home Meds Allergies/Adverse Reactions: Allergies pregabalin [From Lyrica] Allergy (Verified 12/18/18 16:09) Angioedema Primary Care Physician: Blade Teixeira MD [Primary Care Provider] - Surgical History: arthroscopy, knee, - - knee, hip, femur surgery with retained hardware (surgeon Dr. Ryan Peguero [phone]) Lives: Spouse/ Significant Other Smoking Status: Never smoker - Family History Maternal Family History: Family History (Last Reviewed 12/18/18 @ 16:13 by Florencia Maldonado) Father CAD (coronary artery disease) Mother CAD (coronary artery disease) Family History: Reports: Heart Disease Review of Systems General: Denies: Chills, Fever, Sweats Eyes: Denies: Visual changes - bilaterally, Diplopia Cardiovascular: Denies: Chest pain, Palpitations Respiratory: Denies: Dyspnea, Cough Gastrointestinal: Denies: Abdominal pain, Nausea, Vomiting, Diarrhea Musculoskeletal: Reports: Neck pain, Back pain - Upper left trapezius area only, Extremity Pain - Into left shoulder pain., Worse with moving. Denies: Swelling Neurological: Reports: Parasthesia - Left fingers 2-4, gone. Denies: Headache, Weakness Hematologic: Reports: Easy bruising, Easy bleeding Physical Exam Vital Signs/Narrative: Vital Signs Temp Pulse Resp BP Pulse Ox 03/20/19 10:57 97.8 F 60 15 121/68 H 94 Inital Vital Signs reviewed: Yes General: Well nourished, Well developed, No Acute Distress Head: Normocephalic, Atraumatic Eyes: Perrl, EOMI Neck: Supple, - - Tender throughout left paraspinal musculature and down into trapezius and rhomboids, more than the right which is also mildly tender. Cardiovascular: Regular rate, Regular rhythm, No murmurs Respiratory: No distress, CTA bilaterally, Chest nontender Extremities: Nontender, No edema, - - Negative Tinel's at left median and ulnar tunnels Skin: Normal color, No rash, No Trauma, - - Multiple scattered ecchymoses in both upper extremities of various ages Neurological: Alert, Oriented x3, Cranial nerves II-XII grossly intact, Normal Strength, Normal Sensation, Normal DTR, Normal Gait Psychological: Normal affect, Normal Mood Diagnostic/Tx/Re-eval - Medical Decision Making Reassured patient this is clearly all musculoskeletal, likely muscle strain from injury. Unlikely sprain of cervical ligaments. Tingling I do not think was cardiac in etiology, could be irritation of cervical nerve roots, but he does not have a neuropathy or radiculopathy at this time. Supportive care advised. He was advised that soreness can persist up to 2 weeks often, although usually the timeframe he is and now is the worst. I advised him that an occasional NSAID is okay but not to take them routinely given his coronary disease and aspirin. Also given a dose of muscle relaxer here and a prescription for Flexeril which is working in the past. They are comfortable with this plan. ED Disposition - Plan for ED Patient: Disposition: Home or Assisted Living Diagnosis: Cervical myofascial strain Instructions: Neck Sprain/Strain Prescriptions: cycloBENZAPRine HCl [Flexeril] 10 mg PO TID PRN #20 tab PRN Reason: Muscle Spasm Transmission Status: Pending to [id number] Referrals: Blade Teixeira MD [Primary Care Provider] - 10-14 Days if not better
[2019-03-20] MEDS: Orphenadrine 60 MG/2 ML Ampul IM (12:16)
[2019-03-20 12:45] VITALS: BP 118/69; PULSE 70; RESP 15; O2SAT 96
--- NOTE | 2019-03-20 12:47 | ED.RN ---
PT OBSERVED ON SHOT TIME FOR 25 MIN, NO REACTION OBSERVED BY THIS NURSE. PT D/C
== END 2019-03-20 12:49 | disposition home or self-care (01) ==
LOC: ED 12:04
PROVIDERS: Emergency Provider Emergency Medicine; Family Provider Family Medicine; PCP Family Medicine
DX: S16.1XXA Strain of muscle, fascia and tendon at neck level, initial encounter (principal); X58.XXXA Exposure to other specified factors, initial encounter; Y93.89 Activity, other specified; Y92.9 Unspecified place or not applicable; I25.10 Atherosclerotic heart disease of native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 angina pectoris; I50.9 Heart failure, unspecified; I27.20 Pulmonary hypertension, unspecified; I47.2 Ventricular tachycardia; M10.9 Gout, unspecified; E78.00 Pure hypercholesterolemia, unspecified; E11.9 Type 2 diabetes mellitus without complications; N18.9 Chronic kidney disease, unspecified; M45.9 Ankylosing spondylitis of unspecified sites in spine; Z79.4 Long term (current) use of insulin; Z79.82 Long term (current) use of aspirin; Z79.899 Other long term (current) drug therapy
CPT/HCPCS: 96372; 99282

== ENCOUNTER 2019-03-21 09:33 | Observation (INO) | payer BC, SELFPAY ==
[2019-03-20 10:57] VITALS: BMI 26.1
[2019-03-21] VITALS (9 sets, daily range): BP systolic 141–180; BP diastolic 68–81; PULSE 62–97; RESP 16–20; TEMP 36.6–37.5; O2SAT 92–97; BMI 25.8; BMI 25.5; BMI 25.6
--- NOTE | 2019-03-21 10:00 | CT_ITS ---
STUDY: CT BRAIN WITHOUT CONTRAST REASON FOR EXAM: Male, 63 years old. Slurred speech for one week, neck pain RADIATION DOSAGE (If Supplied By Facility): CTDIvol = ( 44.99 ) mGy, DLP = ( 796.11 ) mGycm TECHNIQUE: Transaxial CT imaging of the brain was performed without administration of intravenous contrast material. Individualized dose optimization techniques were used for this CT. COMPARISON: 10/25/2017. FINDINGS: Normal soft tissue structures. Normal calvarium. Normal size ventricles and extra-axial spaces for the patient's age. Normal white matter tracts of the cerebral hemispheres. Normal basal ganglia and thalami. Normal brainstem. Normal cerebellum. There is no intracranial hemorrhage. There are no findings of an acute ischemic infarction. Small right maxillary sinus retention cyst.. CT/Brain/Head without Contrast IMPRESSION: Normal unenhanced CT scan of the brain. Electronically Signed: Maryam Wright, at 10:49 EDT Tel , Service support ,
--- NOTE | 2019-03-21 10:00 | RAD_ITS ---
STUDY: X-RAY CHEST REASON FOR EXAM: Male, 63 years old. Slurred speech x1 week TECHNIQUE: Single AP portable view of the chest. COMPARISON: 06/29/2018 FINDINGS: EKG leads overlie the chest The lungs are clear and expanded. There is no demonstrated pleural abnormality. Sternal cerclage wires and vascular clips are present from a prior sternotomy and coronary artery bypass graft procedure (CABG). Normal mediastinum and sofi. Normal visualized pulmonary arteries. Normal visualized aortic arch and descending thoracic aorta. There are diffuse degenerative changes of the visualized thoracic spine. Normal visualized ribs, clavicles, and shoulders. There is no demonstrated abnormality of the visualized soft tissue structures of the upper abdomen. RAD/Chest 1 View (Portable) IMPRESSION: Degenerative changes, as described above. No demonstrated acute cardiopulmonary process. Electronically Signed: Raghu Mensah MD at 10:26 EDT , Service support ,
--- NOTE | 2019-03-21 10:00 | EKG12_ITS ---
Test Reason : Blood Pressure : / mmHG Vent. Rate : 068 BPM Atrial Rate : 068 BPM P-R Int : 228 ms QRS Dur : 114 ms QT Int : 406 ms P-R-T Axes : 027 -25 116 degrees QTc Int : 431 ms Sinus rhythm with 1st degree A-V block Incomplete right bundle branch block Poor R Wave Progression in limb leads Abnormal ECG Confirmed by CALVIN RASMUSSEN, TITUS ([id number]), publication editor BRYCE DIMAS ([id number]) on 03/24/2019 1:49:26 PM Referred By: Monty Ricardo Confirmed By:TALA SIMPSON MD
--- NOTE | 2019-03-21 10:01 | CT_ITS ---
STUDY: CT CERVICAL SPINE WITHOUT CONTRAST REASON FOR EXAM: Male, 63 years old. Slurred speech x 1 week, neck pain. Hx ankylosingspondylosis, diabetes. RADIATION DOSAGE (If Supplied By Facility): CTDIvol = ( 28.79 ) mGy, DLP = ( 679.51 ) mGycm TECHNIQUE: The patient was scanned in a multi detector CT scanner. High resolution transaxial imaging was performed. Sagittal and coronal images were reconstructed. Individualized dose optimization techniques were used for this CT. COMPARISON: None FINDINGS: Normal cervical lordosis. There is a possible cortical step off at the anterior superior endplate of C4 (sagittal image #27 series 605). There is multilevel endplate spondylosis of the vertebrae. There is multi-level degenerative disc disease with multi-level disc space narrowing. Normal visualized paraspinous soft tissue structures. CT/Spine Cervical without Contras IMPRESSION: C4 cortical step-off. Fracture is not excluded. Further evaluation with MRI is recommended. Multilevel degenerative changes. Electronically Signed: Valerie Kelly MD at 11:29 EDT Tel , Service support ,
--- NOTE | 2019-03-21 10:04 | RAD_ITS ---
STUDY: X-RAY - RIGHT SHOULDER REASON FOR EXAM: Male, 63 years old. Pain, stiffness TECHNIQUE: 4 view(s) of the shoulder. COMPARISON: None. FINDINGS: There is mild degenerative arthrosis of the glenohumeral articulation. There is degenerative arthrosis of the acromioclavicular joint without inferior osseous spur formation. Normal acromion. Normal humeral head and visualized proximal humerus. The soft tissue structures are unremarkable. Normal visualized pulmonary apex. RAD/Shoulder min 2 Views IMPRESSION: Degenerative arthrosis Electronically Signed: Raghu Mensah MD at 10:26 EDT , Service support ,
--- NOTE | 2019-03-21 10:04 | ED.DCSUM_ITS ---
History of Present Illness Chief Complaint: Neuro S/Sx Detail of Chief Complaint: lethargic Informant: Patient, Family Onset: Yesterday Context: Gradual Onset - after ED visit Timing: Continuous Quality: lethargic, slurred speech Location: generalized, nonfocal Current Severity: Moderate Maximum Severity: Moderate Associated Symptoms: improved neck pain especially on left Narrative: Patient brought by EMS because he is unable to get up after sliding out of his recliner, no new injury. He has been lethargic since last night and slurring his speech. He was seen here yesterday by myself for pain in his neck that hurts with turning his head, after having an apparent injury while on his tractor this past weekend, he was grabbing onto some branches to move them out of the way when the tractor jerked, and his arms were pulled back. He had no pain then but did have pain that started the next day. He had no midline tenderness or neurologic symptoms and did not require any radiography. He has a history of ankylosing spondylitis. At the time he was given a dose of Norflex which he tolerated well, and prescribed Flexeril, which generally is more sedating the Norflex but given to the patient because he said he took it in the past and tolerated it very well. I confirmed all of this with the family and they agree that that is an was the case. Initially, the family presents this morning at this visit by saying he has been going downhill for the last couple days and slurring his speech, generally weak. Same family members are present that were yesterday. I clarified with them confirming that none of this was brought up at their visit yesterday, only the neck discomfort and some tingling in 3 separate fingers that was gone by the time I saw him yesterday. As we all discussed more, they confirm that all of this really started last night after he was sent home from the ER yesterday. He was not slurring speech for the past week or generally weak. The patient states that since taking these medications, he had a dose of Norflex in the emergency department and filled the Flexeril and has had 2 of them, none of them this morning, his neck pain is much better although still persistent. It was worse on the left and now it is much better on the left, but he still has some discomfort on the right side and his right shoulder seems to be hurting now, much worse when he tries to abduct, better when he remains still, which he also did not discuss yesterday and he was moving his shoulder much better than. He does not recall injuring it since yesterday's visit. - Past Medical History (1) Ankylosing spondylitis Status: Chronic (2) Atherosclerosis of [place] coronary artery of [place] heart without angina pectoris Status: Chronic Comment: S/P surgery with CARTY to LAD, SVG to OM system, and SVG to PDA in March 2017 at [facility]; (3) CHF (congestive heart failure) Status: Chronic (4) DM2 (diabetes mellitus, type 2) Status: Chronic (5) Diabetes mellitus with neuropathy Status: Chronic (6) Essential hypertension Status: Chronic (7) Pulmonary HTN Status: Chronic (8) Pure hypercholesterolemia Status: Chronic (9) Renal insufficiency Status: Chronic (10) Valvular heart disease Status: Chronic (11) Ventricular tachyarrhythmia Status: Chronic Past Medical History - Allergies and Home Meds Allergies/Adverse Reactions: Allergies pregabalin [From Lyrica] Allergy (Verified 03/21/19 09:38) Angioedema Primary Care Physician: Blade Teixeira MD [Primary Care Provider] - Surgical History: arthroscopy, knee, - - knee, hip, femur surgery with retained hardware (surgeon Dr. Ryan Peguero [phone]) Lives: Spouse/ Significant Other Smoking Status: Never smoker Alcohol: None - Family History Maternal Family History: Family History (Last Reviewed 12/18/18 @ 16:13 by Florencia Maldonado) Father CAD (coronary artery disease) Mother CAD (coronary artery disease) Family History: Reports: Heart Disease Review of Systems General: Reports: Malaise. Denies: Fever Eyes: Denies: Visual changes - bilaterally - no changes c/w last couple days, Diplopia ENT: Denies: Rhinorrhea, Sore throat Cardiovascular: Denies: Chest pain, Palpitations Respiratory: Denies: Dyspnea, Cough, Dyspnea on exertion Gastrointestinal: Denies: Abdominal pain, Nausea, Vomiting, Diarrhea, Melena, Hematochezia Genitourinary: Denies: Dysuria, Hematuria, Frequency Musculoskeletal: Reports: Neck pain, Extremity Pain - R shoulder. Denies: Back pain, Swelling Skin: Denies: Rash, Wounds Neurological: Reports: Weakness - all over, nonfocal, - - per family, moving hands around, picking at things that do not exist, bilaterally and equally on both sides.. Denies: Headache, Parasthesia, Numbness Hematologic: Reports: Easy bruising, Easy bleeding Physical Exam Vital Signs/Narrative: Vital Signs Temp Pulse Resp BP Pulse Ox 03/21/19 09:35 99.5 F H 69 20 H 150/79 H 92 Inital Vital Signs reviewed: Yes General: Well nourished, Well developed, No Acute Distress Head: Normocephalic, Atraumatic Eyes: Perrl, EOMI ENT: No rhinorrhea, Dry mucous membranes Neck: Supple, - - tender right trapezius, no midline tend Cardiovascular: Regular rate, Regular rhythm, No murmurs Respiratory: No distress, CTA bilaterally, Chest nontender Abdomen: Soft, Nontender, Nondistended, Normal bowel sounds Back: Nontender, Normal Inspection Extremities: No edema, Tenderness - right AC joint, w/ mild localized swelling; able to abduct to 15 deg, limited further due to painful ranging. no deformities. Skin: Normal color, No rash, No Trauma Neurological: Alert, Oriented x3, Cranial nerves II-XII grossly intact, Normal Sensation, Weakness - symmetric throughout all 4 ext's -- all hit the bed before 10 sec for arms (RUE limited due to pain in shoulder), before 5 sec for legs. Psychological: Normal affect, Normal Mood Diagnostic/Tx/Re-eval Laboratory Tests 03/21/19 03/21/19 03/21/19 Range/Units 09:40 09:40 09:35 WBC 11.2 H (4.4-11.0) K/mm3 RBC 3.26 L (4.6-6.2) M/mm3 Hgb 9.6 L (13.0-16.5) g/dL Hct 30.4 L (40-54) % MCV 93.3 (80-94) fL MCH 29.4 (27.0-32.0) pg MCHC 31.6 L (32-36) g/dL RDW Std Deviation 46.3 H (35.1-43.9) fl RDW Coeff of Yuri 13.5 (11.6-14.6) % Plt Count 348 (150-450) K/mm3 MPV 9.1 (6.2-12.0) fl Immature Gran % (Auto) 0.500 (0.0-0.9) % Neut % (Auto) 77.3 H (47-70) % Lymph % (Auto) 7.6 L (19-41) % Caroline % (Auto) 13.5 H (0-10) % Eos % (Auto) 0.8 (0-5) % Baso % (Auto) 0.3 (0-1) % Absolute Neuts (auto) 8.7 H (2.0-7.7) X10^3/uL Absolute Lymphs (auto) 0.85 (0.83-4.51) X10^3/uL Absolute Nucleated RBC 0.00 (0-5) 10^3/uL Nucleated RBC % 0 (0-5) % Diff Path Review May foll Platelet Estimate ADEQUATE (ADEQ) Polychromasia RARE Sodium 129 L (136-145) mmol/L Potassium 5.8 H (3.5-5.1) mmol/L Chloride 103 (98-107) mmol/L Carbon Dioxide 25.0 (21.0-32.0) mmol/L Anion Gap 1 L (5-15) BUN 77 H (7-18) mg/dL Creatinine 2.57 H (0.70-1.30) mg/dL Estim Creat Clear Calc 31.17 ml/min Est GFR (MDRD) Af Amer 33 L (>60) mL/min Est GFR (MDRD) Non-Af 27 L (>60) mL/min BUN/Creatinine Ratio 30.0 H (10-20) RATIO Glucose 209 H (74-106) mg/dL Calcium 8.6 (8.5-10.1) mg/dL Troponin I 0.029 (<0.045) ng/mL POC Glucose 210 H (70-110) mg/dL - Rhythm Strip Rhythm Strip: Sinus Rhythm Rate: 70 Ectopy: None - EKG Initial EKG Interpretation: Sinus Rhythm, No Acute Injury Pattern, LAFB, - - Peaked T waves, first-degree AV block, narrow QRS. Prior: Changed - Medical Decision Making Work-up shows acute kidney injury with hyperkalemia and some mild/early EKG changes. He is lethargic so I did not give him oral Kayexalate, and he is not significantly acidotic, so he was given the other appropriate medical treatment for acute hyperkalemia. CT head was unremarkable, work-up shows no sign of any acute infection, and CT neck showed chronic abnormalities along with a step-off at C4, unable to tell if the represented a fracture or not. Suspicion is that it does not. I discussed with hospitalist for admission, he agrees that it is probably an incidental finding and not indicative of etiology of his current pain, but will try to MRI him to rule it out. He is still lethargic, his last Flexeril was taken more than 12 hours ago, although it is still possible that this mixed with his gabapentin and [place] is the source of his lethargy. Of note, again, the patient and his family mentioned yesterday when I prescribed this to him that he had taken it before and done well with it. ED Disposition - Plan for ED Patient: Disposition: Acute [facility] Diagnosis: Lethargy, GARRET (acute kidney injury), Hyperkalemia, Cervical myofascial strain Referrals: Blade Teixeira MD [Primary Care Provider] -
[2019-03-21 10:21] LABS: Absolute Lymphocyte Count 0.85 X10^3/uL (0.83-4.51); Absolute Neutrophil Count 8.7 X10^3/uL (2.0-7.7); Basophil# 0.03 X10^3/uL; Basophil% 0.3 % (0-1); Eosinophil# 0.09 X10^3/uL; Eosinophils% 0.8 % (0-5); Hematocrit 30.4 % (40-54); Hemoglobin 9.6 g/dL (13.0-16.5); Lymphocyte # 0.85 X10^3/ul (4.0); Lymphocyte % 7.6 % (19-41); Mean Corp Hgb Conc 31.6 g/dL (32-36); Mean Corpuscular Hgb 29.4 pg (27.0-32.0); Mean Corpuscular Volume 93.3 fL (80-94); Mean Platelet Vol. 9.1 fl (6.2-12.0); Monocyte# 1.51 X10^3/uL; Monocyte% 13.5 % (0-10); NRBC Flagged by Analyzer 0 % (0-5); Neutrophil # 8.66 X10^3/uL (2.7-7.7); Neutrophil % 77.3 % (47-70); POSITIVE DIFFERENTIAL YES; Platelet Count 348 K/mm3 (150-450); RBC Distribution Width CV 13.5 % (11.6-14.6); RBC Distribution Width SD 46.3 fl (35.1-43.9); Red Blood Count 3.26 M/mm3 (4.6-6.2); White Blood Count 11.2 K/mm3 (4.4-11.0)
[2019-03-21 10:23] LABS: Differential Indicated SCAN CRITERIA MET
[2019-03-21] MEDS: 0.9% Normal Saline 1,000 ML 100 ML IV (10:28)
[2019-03-21 10:35] LABS: Anion Gap 1 (5-15); BUN 77 mg/dL (7-18); Calcium,Total 8.6 mg/dL (8.5-10.1); Chloride 103 mmol/L (98-107); Creatinine, Serum 2.57 mg/dL (0.70-1.30); EST Glomerular Filtration Rate 27 mL/min (>60); Est Glom Filt Rate - Afr Amer 33 mL/min (>60); Estimated Creatinine Clearance 31.17 ml/min; Glucose 209 mg/dL (74-106); Potassium 5.8 mmol/L (3.5-5.1); Sodium Level 129 mmol/L (136-145)
[2019-03-21 10:45] LABS: Bedside Glucose 210 mg/dL (70-110)
[2019-03-21 10:53] LABS: Platelet Estimate ADEQUATE (ADEQ); Polychromasia RARE
[2019-03-21] MEDS: Albuterol 2.5 MG/3 ML VIAL.NEB. INHALATION (11:31)
[2019-03-21] MEDS: Acetaminophen 325 MG Tablet 650 MG PO (12:08)
[2019-03-21] MEDS: Dextrose 50%-Water 25 GM/50 ML DISP.SYRIN IV (12:33)
[2019-03-21] MEDS: Calcium Gluconate 1 GM/10 ML Vial IV (12:39)
--- NOTE | 2019-03-21 13:08 | NURSING ---
PCU GARRET, HYPERKALEMIA, LETHARGY, NECK PAIN TERELETSKY
[2019-03-21 13:20] LABS: Bacteria 0 SEEN /hpf (None Seen); Mucous, Urine 0 SEEN /hpf (<or=2+); Red Blood Cells-Urine 0 SEEN /hpf (0-5); Squamous Epithelial Cells - UA 0 SEEN /hpf (0-5)
[2019-03-21 13:36] LABS: Color, Urine Yellow (Yellow); Glucose, Dipstick 250 mg/dl (Normal); Ketone-Dipstick Negative (Negative); Leukocyte Esterase-Dipstick 500 /ul (Negative); Nitrite-Dipstick Negative (Negative); Occult Blood-Urine 50 /ul (Negative); Protein-Dipstick 500 mg/dl (Negative); Specific Gravity, Urine 1.015 (1.002-1.030); Urine Bilirubin Dipstick Negative (Negative); Urine Clarity Cloudy (Clear); Urine Urobilinogen Normal (Normal)
[2019-03-21 13:44] LABS: White Blood Cells >100 SEEN /hpf (0-5)
--- NOTE | 2019-03-21 14:34 | MRI_ITS ---
STUDY: MRI CERVICAL SPINE WITHOUT CONTRAST REASON FOR EXAM: Male, [address], possible C4 fracture TECHNIQUE: Standardized fat and water weighted pulse sequences were obtained in the sagittal and axial planes. COMPARISON: CT same day FINDINGS: Normal foramen magnum and brainstem-cervical cord junction. Normal craniovertebral junction. There are degenerative changes of the anterior atlantoaxial articulation. Normal odontoid process. Normal cervical lordosis. No acute vertebral body fracture is identified by MRI. C2-3: Central disc protrusion without compressive sequelae. C3-4: Disc ossified complex with mild left foraminal stenosis. C4-5: Normal endplates. Normal disc height, signal and morphology. Normal central canal and intervertebral neural foramina. C5-6: Disc osteophyte complex with mild central canal and bilateral foraminal stenoses. C6-7: Disc osteophyte complex with moderate central canal and bilateral foraminal stenoses. C7-T1: Normal endplates. Normal disc height, signal and morphology. Normal central canal and intervertebral neural foramina. Mild prevertebral edema. Dorsal interosseous ligament injuries are noted from the C2-3 level to the C7-T1 level. No epidural hematoma is seen. No evidence of cord contusion. Median sternotomy wires. MRI/Spine Cervical (Routine) IMPRESSION: No acute fracture of the C4 superior endplate is detected by MRI. Mild prevertebral edema. Dorsal interosseous ligament injuries are noted from the C2-3 level to the C7-T1 level. No epidural hematoma is seen. No evidence of cord contusion. Electronically Signed: Blade Baugh MD at 19:21 EDT Tel , Service support ,
--- NOTE | 2019-03-21 14:54 | PCM.HP.STD ---
Problem List (1) Generalized weakness Status: Acute History of Present Illness Date of Admission: 03/21/19 Chief Complaint: Generalized weakness The patient is a 63 year old M who was brought to the emergency room at [facility] for evaluation of generalized weakness and slurring of words today. Patient was seen in the emergency room yesterday concerning pain in his neck that occurred after he was holding a branch and his arms were pulled back. Patient was placed on Flexeril and given a dose of Norflex in the emergency room and discharged home at that point. Patient's states the patient took 2 Flexeril 1 approximately 6:30 PM last night and one at 11:00 last night, this morning she noted that he was slurring his speech and having generalized weakness. Patient is does not complain of arm discomfort today but he still complains of some neck discomfort. Evaluation in the emergency room showed the patient to be lethargic, he was dozing off frequently during examination. Labs were remarkable for a white blood cell count of 11.2, hemoglobin of 9.6, sodium of 129, potassium of 5.8, BUN of 77, and creatinine of 2.57. Blood glucose was 209. Troponin was unremarkable. Urinalysis showed over 100 white cells in the urine but there were no bacteria and no red blood cells. Leukocyte esterase was 500. CT scan of the brain was obtained which was normal, chest x-ray showed no acute cardiopulmonary process, and CT of the cervical spine showed a possible cortical step-off at C4. EKG showed peaked T waves and a first-degree AV block. It was felt that the patient's lethargy was secondary to Flexeril ingestion, patient was given an aerosol treatment for his hyperkalemia and the patient was placed in observation status for hyperkalemia, acute kidney injury, and toxic encephalopathy. Past Medical History Past Medical History (Chronic Problems): Chronic Problems (Last Updated 01/27/19 @ 09:31 by Florencia Maldonado) Pure hypercholesterolemia (Chronic) Ischemic cardiomyopathy (Chronic) Essential hypertension (Chronic) Leg swelling (Chronic) Leg edema (Chronic) Overweight (BMI 25.0-29.9) (Chronic) Ankylosing spondylitis (Chronic) Renal insufficiency (Chronic) Hx of CABG (Chronic ~04/12/17) CARTY to LAD, SVG to PDA, SVG to OM 04/12/2017 @ [facility]; Ventricular tachyarrhythmia (Chronic) Atherosclerosis of [place] coronary artery of [place] heart without angina pectoris (Chronic) S/P surgery with CARTY to LAD, SVG to OM system, and SVG to PDA in March 2017 at [facility]; DM2 (diabetes mellitus, type 2) (Chronic) Gout (Chronic) Diabetes mellitus with neuropathy (Chronic) Abscess of right foot (Chronic) CHF (congestive heart failure) (Chronic) NSTEMI (non-ST elevated myocardial infarction) (Chronic) Valvular heart disease (Chronic) Cardiomyopathy (Chronic) Pulmonary HTN (Chronic) Medical History: Medical History (Last Updated 01/27/19 @ 09:31 by Florencia Maldonado) Pure hypercholesterolemia (Chronic) E78.00 Ischemic cardiomyopathy (Chronic) I25.5 Essential hypertension (Chronic) I10 Leg swelling (Chronic) M79.89 Leg edema (Chronic) R60.0 Overweight (BMI 25.0-29.9) (Chronic) E66.3 Ankylosing spondylitis (Chronic) M45.9 Renal insufficiency (Chronic) N28.9 Ventricular tachyarrhythmia (Chronic) I47.2 Atherosclerosis of [place] coronary artery of [place] heart without angina pectoris (Chronic) I25.10 S/P surgery with CARTY to LAD, SVG to OM system, and SVG to PDA in March 2017 at [facility]; DM2 (diabetes mellitus, type 2) (Chronic) E11.9 Gout (Chronic) M10.9 Diabetes mellitus with neuropathy (Chronic) E11.40 Abscess of right foot (Chronic) L02.611 CHF (congestive heart failure) (Chronic) I50.9 NSTEMI (non-ST elevated myocardial infarction) (Chronic) I21.4 Valvular heart disease (Chronic) Cardiomyopathy (Chronic) I42.9 Pulmonary HTN (Chronic) I27.2 Acute systolic heart failure I50.21 Biliary pleural effusion J90 Bradycardia R00.1 CAD (coronary artery disease) (Inactive) I25.10 HTN (hypertension) (Inactive) I10 Allergies pregabalin [From Lyrica] Allergy (Verified 03/21/19 09:38) Angioedema Home Medications: Ambulatory Orders Medication Instructions Recorded carvedilol 25 mg tablet 25 mg PO BID #180 tab 05/14/18 Hydrocodone Bitart/Apap 5-325 1 tab PO Q4H PRN PRN 06/03/18 [[place] 5MG-325MG] Insulin Detemir [Levemir] 17 unit SQ DINNER 06/03/18 Latanoprost 0.005% [Xalatan 1 drp EACH EYE QHS 06/03/18 Opthalmic] Tadalafil [Cialis] 20 mg PO PRN PRN 06/03/18 aspirin 81 mg tablet,delayed 81 mg PO DAILY tab 08/02/18 release furosemide 40 mg tablet 60 mg PO DAILY tab 12/18/18 gabapentin 300 mg capsule 300 mg PO BID cap 12/18/18 atorvastatin 40 mg tablet 40 mg PO QHS #30 tab 01/27/19 doxazosin 4 mg tablet 2 mg PO BID #90 tab 03/05/19 Triamcinolone Acetonide 40 mg IJ X1 03/20/19 [Kenalog-40] cycloBENZAPRine HCl [Flexeril] 10 mg PO TID PRN #20 tab 03/20/19 Multivitamin with Minerals 2 ea PO DAILY 03/21/19 [Multiple Vitamin] Surgical History: Surgical History (Last Reviewed 12/18/18 @ 16:13 by Florencia Maldonado) Hx of CABG (Chronic) Onset Date: ~04/12/17 Z95.1 CARTY to LAD, SVG to PDA, SVG to OM 04/12/2017 @ [facility]; Hx of arthroscopy Z98.890 knee, hip hx femur surgery Hx right femur surgery with retained hardware History of open reduction and internal fixation (ORIF) procedure Z98.890 Left wrist, hip Surgical History: arthroscopy, knee, coronary bypass surgery, total hip arthroplasty, total knee arthroplasty, - - Wrist surgery, glaucoma surgery, femur surgery with retained hardware (surgeon Dr. Ryan Peguero [phone]) Psychiatric History: No pertinent psych hx Lives: Spouse/ Significant Other Smoking Status: Never smoker Tobacco Use: Non-smoker Alcohol: None Drugs: None - *Family History Maternal Family History: Family History (Last Reviewed 12/18/18 @ 16:13 by Florencia Maldonado) Father CAD (coronary artery disease) Mother CAD (coronary artery disease) History Items: Heart Disease Paternal Family History: Family History (Last Reviewed 12/18/18 @ 16:13 by Florencia Maldonado) Father CAD (coronary artery disease) Mother CAD (coronary artery disease) History Items: Heart Disease Review of Systems Constitutional: Reports: Weakness, Fatigue. Denies: Anorexia, Chills, Fever, Night Sweats, Malaise, Weight Change Eyes: Denies: Blurred vision, Cataracts, Conjunctivae Inflammation, Double vision HEENT: Denies: Difficulty Swallowing, Dysphasia, Ear Pain, Eye Pain, Nasal bleeding, Nasal Congestion Cardiovascular: Denies: Chest Pain, Claudication, Chest Pressure, Chest Tightness, Edema, Palpitations Respiratory: Denies: Cough, Hemoptysis, Pleuritic Pain, Shortness of Breath, Shortness of breath at rest, Shortness of breath upon exertion Gastrointestinal: Denies: Abdominal Pain, Constipation, Diarrhea, Hematemesis, Hematochezia, Nausea, Melena, Vomiting Genitourinary: Denies: Dysuria, Frequency, Hematuria, Hesitancy, Nocturia, Retention, Urgency Musculoskeletal: Reports: Neck Pain. Denies: Back Pain, Foot Pain, Hand Pain, Joint Pain, Joint stiffness, Joint swelling, Joint Tenderness, Leg Pain Skin: Denies: Dryness, Jaundice, Pruritis, Rash Neurological: Reports: Slurred speech. Denies: Blurred vision, Double vision, Change in Speech, Difficulty swallowing, Focal weakness, Headaches, Numbness, Tingling Psychiatric: Denies: Anxiety, Depression, Homicidal Ideations, Suicidal Ideations Endocrine: Denies: Change in Body Habitus, Heat/ Cold Intolerance, Polydipsia, Polyuria Hematologic/ Lymphatic: Denies: Adenopathy, Anemia, Easy Bruising, Easy Bleeding, Petechiae, Purpura VTE Information - Inpt Only VTE Present on Admission: No VTE Mechan Device Prophylaxis: None VTE Pharm Prophylaxis ordered?: Yes Patient Problems: Active and Suspected Problems (Last Updated 01/27/19 @ 09:31 by Florencia Maldonado) Lethargy (Acute) GARRET (acute kidney injury) (Acute) Hyperkalemia (Acute) Cervical myofascial strain (Acute) Generalized weakness (Acute) - Physical Exam General: Oriented x3, Cooperative, No apparent distress, Well developed, Lethargic HEENT: Atraumatic, PERRLA, EOMI, Normocephalic Oral: Moist Mucosa Neck: Supple, No JVD, Negative Carotid Bruits, Trachea Midline, Thyroid Normal Size and Texture Lungs: Clear to auscultation, Normal air movement, No rhonchi, No wheeze Cardiovascular: Regular rate, Regular Rhythm, Normal S1, Normal S2, No murmurs Abdomen: Bowel Sounds Present, Soft, Non Tender, Non-Distended, No hernias noted Extremities: No clubbing, No cyanosis, Capillary Refill Less than 3 Seconds, Edema - Mild ankle edema is noted bilaterally Skin: No rashes, No breakdown Musculoskeletal: No Tenderness to Palpation of Joints or Extremities Neurological: Cranial nerves II-XII grossly intact, Neuro grossly intact, Sensory exam intact to light touch and pain, Coordination normal Psych/Mental Status: Normal Affect, Appropriate, Alert and oriented to time, place, person, mood and affect Vital Signs Temp Pulse Resp BP Pulse Ox 97.8 F 64 18 161/81 H 97 03/21/19 14:08 03/21/19 14:08 03/21/19 14:08 03/21/19 14:08 03/21/19 14:08 Oxygen Flow Rate (L/min) 4 Oxygen Delivery Method Nasal Cannula Weight: 80.9 kg Body Mass Index (BMI) 25.5 Finger Stick Blood Glucose 210 Laboratory Tests Past 24 Hrs 03/21/19 03/21/19 03/21/19 09:40 09:40 13:15 WBC 11.2 H RBC 3.26 L Hgb 9.6 L Hct 30.4 L MCV 93.3 MCH 29.4 MCHC 31.6 L RDW Std Deviation 46.3 H RDW Coeff of Yuri 13.5 Plt Count 348 MPV 9.1 Immature Gran % (Auto) 0.500 Neut % (Auto) 77.3 H Lymph % (Auto) 7.6 L Mcculloch % (Auto) 13.5 H Eos % (Auto) 0.8 Baso % (Auto) 0.3 Absolute Neuts (auto) 8.7 H Absolute Lymphs (auto) 0.85 Absolute Nucleated RBC 0.00 Nucleated RBC % 0 Diff Path Review May foll Platelet Estimate ADEQUATE Polychromasia RARE Sodium 129 L Potassium 5.8 H Chloride 103 Carbon Dioxide 25.0 Anion Gap 1 L BUN 77 H Creatinine 2.57 H Estim Creat Clear Calc 31.17 Est GFR (MDRD) Af Amer 33 L Est GFR (MDRD) Non-Af 27 L BUN/Creatinine Ratio 30.0 H Glucose 209 H Calcium 8.6 Troponin I 0.029 Urine Color Yellow Urine Clarity Cloudy Urine pH 6.0 Ur Specific [place] 1.015 Urine Protein 500 H Urine Glucose (UA) 250 H Urine Ketones Negative Urine Occult Blood 50 H Urine Nitrite Negative Urine Bilirubin Negative Urine Urobilinogen Normal Ur Leukocyte Esterase 500 H Urine RBC 0 SEEN Urine WBC >100 SEEN Ur Squamous Epith Cells 0 SEEN Urine Bacteria 0 SEEN Urine Mucus 0 SEEN POC Glucose 03/21/19 09:35 POC Glucose 210 H Assessment/Plan All Active Problems (Last Updated 01/27/19 @ 09:31 by Florencia Maldonado) Lethargy (Acute) GARRET (acute kidney injury) (Acute) Hyperkalemia (Acute) Cervical myofascial strain (Acute) Generalized weakness (Acute) #1 acute kidney injury-this is on a backdrop of chronic kidney disease stage III due to type 2 diabetes and the use of daily diuretics-patient will be placed in observation status on PCU, he will be given IV fluids and monitored. Labs will be repeated tomorrow #2 hyperkalemia-patient was given aerosol treatment in the emergency room, I will repeat his BMP tomorrow #3 toxic encephalopathy secondary to Flexeril usage-patient will be given [place] for neck pain, he takes this at home on a chronic basis. #4 type 2 diabetes-blood sugars will be monitored #5 ischemic cardiomyopathy-patient's last echocardiogram revealed an EF of 40% on 01/10/2019 #6 coronary artery disease #7 cervical neck strain-MRI of the neck will be performed due to the possibility of a C4 step-off #8 chronic kidney disease stage III secondary to type 2 diabetes #9 pulmonary hypertension #10 hypertension #11 pyuria-patient will be monitored for any elevation in temperature, his CBC will be repeated tomorrow Code Visit OBSV E&M: [id number] Initial observation care L3
[2019-03-21] MEDS: 0.9% Normal Saline 1,000 ML 75 ML IV (15:01)
[2019-03-21 17:11] LABS: Bedside Glucose 195 mg/dL (70-110)
[2019-03-21] MEDS: Insulin Lispro 100 UNIT/ML INSULN.PEN SC ×2 (17:12→21:03)
[2019-03-21] MEDS: Doxazosin 1 MG Tablet 2 MG PO (21:02)
[2019-03-21] MEDS: Heparin Injection (Vial) 5,000 UNIT/ML VIAL 5000 UNIT SC (21:03)
[2019-03-21] MEDS: Carvedilol 25 MG Tablet PO (21:03)
[2019-03-21] MEDS: Gabapentin 300 MG Capsule PO (21:04)
[2019-03-21] MEDS: Latanoprost 0.005% 1 Bottle 1 DRP EACH EYE (21:04)
[2019-03-21 21:15] LABS: Bedside Glucose 319 mg/dL (70-110)
--- NOTE | 2019-03-21 22:45 | NURSING ---
This RN received a phone call from Yun with concern about patient going home if unable to walk well. Prior to coming to the hospital caring for him was difficult and unsafe. has medical history and daughter has recent injury that does not allow them to safely care for him or themselves if he is not strong enough to ambulate on his own. requested to speak with case management about the situation.
[2019-03-22] VITALS (7 sets, daily range): BP systolic 137–168; BP diastolic 65–80; PULSE 63–82; RESP 17–18; TEMP 36.4–37.6; O2SAT 93–96
--- NOTE | 2019-03-22 03:33 | NURSING ---
This RN gave report to RN taking over.
[2019-03-22] MEDS: HYDROcodone Bitartrate/Apap 5/325 Tablet PO ×2 (03:49→10:09)
[2019-03-22 03:51] LABS: Bedside Glucose 148 mg/dL (70-110)
[2019-03-22] MEDS: Insulin Lispro 100 UNIT/ML INSULN.PEN SC ×2 (06:34→12:28)
[2019-03-22 06:40] LABS: Bedside Glucose 154 mg/dL (70-110)
[2019-03-22 06:44] LABS: Absolute Lymphocyte Count 0.82 X10^3/uL (0.83-4.51); Basophil# 0.03 X10^3/uL; Basophil% 0.3 % (0-1); Eosinophil# 0.21 X10^3/uL; Hemoglobin 9.6 g/dL (13.0-16.5); Lymphocyte # 0.82 X10^3/ul (4.0); Lymphocyte % 7.8 % (19-41); Mean Corpuscular Hgb 29.8 pg (27.0-32.0); Mean Corpuscular Volume 96.3 fL (80-94); Monocyte# 1.44 X10^3/uL; Monocyte% 13.6 % (0-10); NRBC Flagged by Analyzer 0 % (0-5); Neutrophil # 8.01 X10^3/uL (2.7-7.7); Neutrophil % 75.8 % (47-70); Platelet Count 333 K/mm3 (150-450); RBC Distribution Width CV 13.4 % (11.6-14.6); RBC Distribution Width SD 47.8 fl (35.1-43.9); Red Blood Count 3.22 M/mm3 (4.6-6.2); White Blood Count 10.6 K/mm3 (4.4-11.0)
[2019-03-22 07:05] LABS: Anion Gap 7 (5-15); BUN 82 mg/dL (7-18); BUN/Creat Ratio 32.8 RATIO (10-20); Calcium,Total 8.8 mg/dL (8.5-10.1); Chloride 104 mmol/L (98-107); EST Glomerular Filtration Rate 28 mL/min (>60); Est Glom Filt Rate - Afr Amer 34 mL/min (>60); Estimated Creatinine Clearance 32.04 ml/min; Glucose 154 mg/dL (74-106); Potassium 5.9 mmol/L (3.5-5.1); Sodium Level 136 mmol/L (136-145)
--- NOTE | 2019-03-22 08:36 | US_ITS ---
STUDY: RENAL ULTRASOUND - COMPLETE REASON FOR EXAM: Male, 63 years old. Abnormal laboratory values TECHNIQUE: Ultrasound evaluation of the kidneys was performed with real-time and static romero-scale imaging. COMPARISON: None. FINDINGS: RIGHT KIDNEY: Normal location of the right kidney, which is normal in size. The right kidney measures 12.3 x 4.6 x 4.9 cm. There is a normal cortex of the right kidney. The renal cortex measures 1.5 cm. There is no right renal mass or cyst. There are no right renal calculi. There is no right hydronephrosis. DISTAL RIGHT URETER: There is non-visualization of the distal right ureter. There is no demonstrated right ureterovesical junction calculus. There is no demonstrated right ureteral jet. LEFT KIDNEY: Normal location of the left kidney, which is normal in size. The left kidney measures 13.1 x 5.2 x 5.2 cm. There is a normal cortex of the left kidney. The renal cortex measures 1.4 cm. There is no left renal mass or cyst. There are no left renal calculi. There is no left hydronephrosis. DISTAL LEFT URETER: There is non-visualization of the distal left ureter. There is no demonstrated left ureterovesical junction calculus. There is no demonstrated left ureteral jet. BLADDER: The distended urinary bladder has a volume of 590 ml. There is a normal wall thickness of the distended urinary bladder. Echogenic foci within the urinary bladder lumen layers dependently. There are no demonstrated bladder calculi. US/Kidney and Bladder IMPRESSION: 1. No hydronephrosis. 2. Layering debris within the urinary bladder may represent proteinaceous material, infectious debris or hemorrhagic product/hematuria. Electronically Signed: Mohsen Magallanes MD at 10:16 EDT , Service support ,
--- NOTE | 2019-03-22 09:09 | PCM.DC ---
- Discharge Diagnoses Current Active Problems: Current Active and Chronic Problems (Last Updated 01/27/19 @ 09:31 by Florencia Maldonado) Lethargy (Acute) GARRET (acute kidney injury) (Acute) Hyperkalemia (Acute) Cervical myofascial strain (Acute) Generalized weakness (Acute) You will use the following diet at home:: Calorie/Carbohydrate Controlled (specify 1200, 1400, etc) - 1800 sabrina Your food should be the consistency of: Regular Your liquids should be the consistency of: Regular/Thin Discharge Activity: Return to Normal Activity Weight Bearing Status: Full weight bearing Allergies/Adverse Reactions: Allergies pregabalin [From Lyrica] Allergy (Verified 03/21/19 09:38) Angioedema Medications to take at Discharge carvedilol 25 mg tablet 25 mg PO BID #180 tab 05/14/18 Hydrocodone Bitart/Apap 5-325 [[place] 5/325] 1 tab PO Q4H PRN PRN 06/03/18 Insulin Detemir [Levemir] 17 unit SQ DINNER 06/03/18 Latanoprost 0.005% [Xalatan Opthalmic] 1 drp EACH EYE QHS 06/03/18 Tadalafil [Cialis] 20 mg PO PRN PRN 06/03/18 aspirin 81 mg tablet,delayed release 81 mg PO DAILY tab 08/02/18 gabapentin 300 mg capsule 300 mg PO BID cap 12/18/18 atorvastatin 40 mg tablet 40 mg PO QHS #30 tab 01/27/19 doxazosin 4 mg tablet 2 mg PO BID #90 tab 03/05/19 Triamcinolone Acetonide [Kenalog-40] 40 mg IJ X1 03/20/19 Multivitamin with Minerals [Multiple Vitamin] 2 ea PO DAILY 03/21/19 Cephalexin [Keflex] 500 mg PO Q12 #14 cap 03/22/19 Furosemide [Lasix] 40 mg PO DAILY #1 tablet 03/22/19 Sodium Polystyrene Sulfonate [Kayexalate] 15 gm PO DAILY #500 ml 03/22/19 The following prescriptions were given: Sodium Polystyrene Sulfonate [Kayexalate] 15 gm PO DAILY #500 ml Transmission Status: Pending to [id number] Cephalexin [Keflex] 500 mg PO Q12 #14 cap Transmission Status: Pending to [id number] Furosemide [Lasix] 40 mg PO DAILY #1 tablet Primary Care Physician: Blade Teixeira MD [Primary Care Provider] - Please follow up with your Primary Care Physician in: in 2 weeks Test Results: Test results from this visit will be discussed in further detail at your follow-up appointment, if applicable. Please Follow Up With: Daniel Mcfadden MD When: Sunday of this week-get your labs repeated
[2019-03-22] MEDS: Aspirin E.C. 81 MG Tablet PO (10:08)
[2019-03-22] MEDS: Carvedilol 25 MG Tablet PO (10:08)
[2019-03-22] MEDS: Doxazosin 1 MG Tablet 2 MG PO (10:08)
[2019-03-22] MEDS: Heparin Injection (Vial) 5,000 UNIT/ML VIAL 5000 UNIT SC (10:09)
[2019-03-22] MEDS: Gabapentin 300 MG Capsule PO (10:09)
[2019-03-22] MEDS: Sodium Polystyrene Sulfonate 15 GM/60 ML UDC 30 GM PO (10:44)
[2019-03-22 12:36] LABS: Bedside Glucose 179 mg/dL (70-110)
--- NOTE | 2019-03-22 12:49 | NURSING ---
Discharge teaching completed. Instruction provided to who voices understanding of same.
--- NOTE | 2019-03-22 15:51 | DS.PCM_ITS ---
Discharge Date and Diagnosis - Problem List Patient Problems: Active and Suspected Problems (Last Updated 01/27/19 @ 09:31 by Florencia Maldonado) Neck muscle strain (Acute) Date of Admission: 03/21/19 Date of Discharge: 03/22/19 - Primary Discharge Diagnosis Active and Suspected Problems (Last Updated 01/27/19 @ 09:31 by Florencia Maldonado) #1 Worsening creatinine in a patient with chronic kidney disease-GARRET could not be ruled out #2 hyperkalemia-secondary to #1 #3 toxic encephalopathy secondary to Flexeril usage #4 type 2 diabetes #5 ischemic cardiomyopathy #6 coronary artery disease #7 Ligamentous cervical neck strain-acute #8 chronic kidney disease stage III secondary to type 2 diabetes #9 pulmonary hypertension #10 hypertension #11 pyuria - Secondary Discharge Diagnosis Chronic Problems (Last Updated 01/27/19 @ 09:31 by Florencia Maldonado) Pure hypercholesterolemia (Chronic) Ischemic cardiomyopathy (Chronic) Essential hypertension (Chronic) Leg swelling (Chronic) Leg edema (Chronic) Overweight (BMI 25.0-29.9) (Chronic) Ankylosing spondylitis (Chronic) Renal insufficiency (Chronic) Hx of CABG (Chronic ~04/12/17) CARTY to LAD, SVG to PDA, SVG to OM 04/12/2017 @ [facility]; Ventricular tachyarrhythmia (Chronic) Atherosclerosis of [place] coronary artery of [place] heart without angina pectoris (Chronic) S/P surgery with CARTY to LAD, SVG to OM system, and SVG to PDA in March 2017 at [facility]; DM2 (diabetes mellitus, type 2) (Chronic) Gout (Chronic) Diabetes mellitus with neuropathy (Chronic) Abscess of right foot (Chronic) CHF (congestive heart failure) (Chronic) NSTEMI (non-ST elevated myocardial infarction) (Chronic) Valvular heart disease (Chronic) Cardiomyopathy (Chronic) Pulmonary HTN (Chronic) Hospital Course and Treatment Imaging Results: 03/22/19 08:36 Renal [Kidney and Bladder] [US] Stat Operations: None Procedures: - - Renal ultrasound Summary of Care Provided: The patient is a 63 year old M seen in the emergency room at [facility] after being brought in by his due to slurred speech and altered mental status, patient appeared lethargic. He had been to the emergency room the day before and given Flexeril for some neck pain that the patient complained of after he had grabbed a tree branch at home and jerked his neck. Labs in the emergency room showed the patient's creatinine to be elevated above his baseline creatinine, patient's potassium was elevated also, patient had a CT of the cervical spine which showed a possible step-off on C4. Patient appeared lethargic in the emergency room but awakened to answer questions but then dozes off again. It was felt that the patient was having toxic effects from the Flexeril, he was placed in the observation status on PCU for possible acute kidney injury, given IV fluids, his Lasix was held, and he received a Proventil aerosol treatment in the emergency room for his increased potassium. The following day, the patient's labs were repeated and his potassium was 5.9, he was given 15 g of Kayexalate, his creatinine decreased slightly but remained in about the same range as it was the day before. Ultrasound of the kidneys was obtained which showed no evidence of hydronephrosis but there was some debris n oted in the bladder. Patient also had the presence of white cells in his urine on admission but no bacteria and nitrites were negative. Patient did not exhibit signs of urinary tract infection during his hospitalization. On 03/22/2019, patient was seen and examined: On examination he appeared sleepy but answers questions appropriately. Vital signs as documented. Skin warm and dry and without overt rashes. Neck without JVD. Lungs clear. Heart exam notable for regular rhythm, normal sounds and absence of murmurs, rubs or gallops. Abdomen unremarkable and without evidence of organomegaly, masses, or abdominal aortic enlargement. Extremities nonedematous. Neuro: Cranial nerves II through XII are grossly intact, no focal motor deficits were noted, sensation to light touch and pinprick intact. Psych: Patient is alert and oriented x3, he does not appear anxious or depressed On 03/22/2019, patient was seen and examined felt to be in stable condition for discharge home, I instructed the patient to lower his dose of Lasix to 40 mg daily, take Kayexalate 15 g daily, and follow-up with nephrology on 03/24/2019 to get his labs repeated. I discussed the case with his hospital educator by phone (Jade Mcfadden) and made him aware of the patient's medical course in the hospital and made him aware that he was to follow-up with him on 03/24/2019. Patient Problems: Active and Suspected Problems (Last Updated 01/27/19 @ 09:31 by Florencia Maldonado) Neck muscle strain (Acute) - Physical Exam Vital Signs Temp Pulse Resp BP Pulse Ox 98.4 F 63 17 137/65 H 93 03/22/19 12:35 03/22/19 12:35 03/22/19 12:35 03/22/19 12:35 03/22/19 12:35 Oxygen Flow Rate (L/min) 4 Oxygen Delivery Method Room Air Weight: 80.9 kg Body Mass Index (BMI) 25.5 Finger Stick Blood Glucose 210 Intake and Output for Last 24 Hours 03/20/19 03/21/19 03/22/19 23:59 23:59 23:59 Intake Total 707 / 707 1174 / 1174 Output Total 675 / 675 500 / 500 Balance 32 / 32 674 / 674 Laboratory Tests Past 24 Hrs 03/22/19 03/22/19 05:10 05:10 WBC 10.6 RBC 3.22 L Hgb 9.6 L Hct 31.0 L MCV 96.3 H MCH 29.8 MCHC 31.0 L RDW Std Deviation 47.8 H RDW Coeff of Yuri 13.4 Plt Count 333 MPV 9.0 Immature Gran % (Auto) 0.500 Neut % (Auto) 75.8 H Lymph % (Auto) 7.8 L Shannon % (Auto) 13.6 H Eos % (Auto) 2.0 Baso % (Auto) 0.3 Absolute Neuts (auto) 8.0 H Absolute Lymphs (auto) 0.82 L Absolute Nucleated RBC 0.00 Nucleated RBC % 0 Sodium 136 Potassium 5.9 H Chloride 104 Carbon Dioxide 25.0 Anion Gap 7 BUN 82 H Creatinine 2.50 H Estim Creat Clear Calc 32.04 Est GFR (MDRD) Af Amer 34 L Est GFR (MDRD) Non-Af 28 L BUN/Creatinine Ratio 32.8 H Glucose 154 H Calcium 8.8 POC Glucose 03/22/19 03/22/19 03/22/19 12:19 06:31 03:45 POC Glucose 179 H 154 H 148 H 03/21/19 03/21/19 21:00 17:06 POC Glucose 319 H 195 H Discharge Activity: Return to Normal Activity Weight Bearing Status: Full weight bearing Home Medications: Medications to take at Discharge carvedilol 25 mg tablet 25 mg PO BID #180 tab 05/14/18 Hydrocodone Bitart/Apap 5-325 [[place] 5/325] 1 tab PO Q4H PRN PRN 06/03/18 Insulin Detemir [Levemir] 17 unit SQ DINNER 06/03/18 Latanoprost 0.005% [Xalatan Opthalmic] 1 drp EACH EYE QHS 06/03/18 Tadalafil [Cialis] 20 mg PO PRN PRN 06/03/18 aspirin 81 mg tablet,delayed release 81 mg PO DAILY tab 08/02/18 gabapentin 300 mg capsule 300 mg PO BID cap 12/18/18 atorvastatin 40 mg tablet 40 mg PO QHS #30 tab 01/27/19 doxazosin 4 mg tablet 2 mg PO BID #90 tab 03/05/19 Triamcinolone Acetonide [Kenalog-40] 40 mg IJ X1 03/20/19 Multivitamin with Minerals [Multiple Vitamin] 2 ea PO DAILY 03/21/19 Cephalexin [Keflex] 500 mg PO Q12 #14 cap 03/22/19 Furosemide [Lasix] 40 mg PO DAILY #1 tab 03/22/19 Sodium Polystyrene Sulfonate [Kayexalate] 15 gm PO DAILY #500 ml 03/22/19 Following Prescrptions Were Given to Patient: Sodium Polystyrene Sulfonate [Kayexalate] 15 gm PO DAILY #500 ml Transmission Status: Received by [facility] #[id number] Cephalexin [Keflex] 500 mg PO Q12 #14 cap Transmission Status: Received by [facility]/pharmacy #[id number] Furosemide [Lasix] 40 mg PO DAILY #1 tab Primary Care Physician: Blade Teixeira MD [Primary Care Provider] - Please follow up with your Primary Care Physician in: in 2 weeks Please Follow Up With: Daniel Mcfadden MD When: Sunday of this week-get your labs repeated Disposition: Home Minutes spent on discharge:: 31 Patient Condition:: Stable Medical Necessity - Tobacco Use Smoking Status: Never smoker Tobacco Use: Non-smoker Meaningful Use Info Meaningful Use Diagnoses (Choose all that apply): None applicable Code Visit OBSV E&M: 52663 Observation care discharge
[2019-03-24 09:36] LABS: Pathologist Review Reviewed
== END 2019-03-22 12:49 | disposition home or self-care (01) ==
LOC: ED 11:20 → PCU 13:30
PROVIDERS: Admitting Provider Internal Medicine; Emergency Provider Emergency Medicine; Family Provider Family Medicine; PCP Family Medicine; Referring Provider Internal Medicine; Visit Provider Internal Medicine
DX: S16.1XXA Strain of muscle, fascia and tendon at neck level, initial encounter (principal); V84.9XXA Unspecified occupant of special agricultural vehicle injured in nontraffic accident, initial encounter; Y93.89 Activity, other specified; Y92.9 Unspecified place or not applicable; R47.81 Slurred speech; I25.10 Atherosclerotic heart disease of native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 angina pectoris; E11.42 Type 2 diabetes mellitus with diabetic polyneuropathy; I50.9 Heart failure, unspecified; I27.20 Pulmonary hypertension, unspecified; I13.0 Hypertensive heart and chronic kidney disease with heart failure and stage 1 through stage 4 chronic kidney disease, or unspecified chronic kidney disease; N17.9 Acute kidney failure, unspecified; E87.5 Hyperkalemia; E11.22 Type 2 diabetes mellitus with diabetic chronic kidney disease; Z79.899 Other long term (current) drug therapy; Z79.4 Long term (current) use of insulin; M45.9 Ankylosing spondylitis of unspecified sites in spine; N18.3 Chronic kidney disease, stage 3 (moderate); G92 Toxic encephalopathy
CPT/HCPCS: 36415; 70450; 71045; 72125; 72141; 73030; 76770; 80048; 81001; 82962; 84484; 85025; 93005; 94640; 96361; 96372; 96374; 96375; 99218; 99285; J7030; A4216; G0378; J0610

== ENCOUNTER 2019-04-12 12:55 | Emergency (ER) | payer OTHER, SELFPAY ==
[2019-03-21 14:06] VITALS: BMI 25.5
[2019-04-12 12:57] VITALS: BP 146/70; PULSE 61; RESP 18; TEMP 36.4; O2SAT 94; BMI 28.4
[2019-04-12 13:29] LABS: Absolute Lymphocyte Count 0.76 X10^3/uL (0.83-4.51); Absolute Neutrophil Count 7.4 X10^3/uL (2.0-7.7); Basophil# 0.05 X10^3/uL; Basophil% 0.5 % (0-1); Eosinophil# 0.41 X10^3/uL; Eosinophils% 4.1 % (0-5); Hemoglobin 7.8 g/dL (13.0-16.5); Lymphocyte # 0.76 X10^3/ul (4.0); Lymphocyte % 7.6 % (19-41); Mean Corp Hgb Conc 31.2 g/dL (32-36); Mean Corpuscular Volume 96.2 fL (80-94); Mean Platelet Vol. 9.1 fl (6.2-12.0); Monocyte# 1.27 X10^3/uL; Monocyte% 12.7 % (0-10); NRBC Flagged by Analyzer 0 % (0-5); Neutrophil # 7.41 X10^3/uL (2.7-7.7); Neutrophil % 74.4 % (47-70); Platelet Count 441 K/mm3 (150-450); RBC Distribution Width CV 13.8 % (11.6-14.6); RBC Distribution Width SD 48.5 fl (35.1-43.9)
[2019-04-12 13:35] LABS: International Normalized Ratio 1.1; Partial Thromboplast Time 30.9 Seconds (24.1-36.2); Prothrombin Time (Protime)PT. 14.3 SECONDS (11.7-14.9)
[2019-04-12 13:43] LABS: Anion Gap 6 (5-15); BUN 59 mg/dL (7-18); BUN/Creat Ratio 26.6 RATIO (10-20); Calcium,Total 7.9 mg/dL (8.5-10.1); Chloride 99 mmol/L (98-107); Creatinine, Serum 2.22 mg/dL (0.70-1.30); EST Glomerular Filtration Rate 32 mL/min (>60); Est Glom Filt Rate - Afr Amer 39 mL/min (>60); Estimated Creatinine Clearance 37.22 ml/min; Glucose 158 mg/dL (74-106); Potassium 5.2 mmol/L (3.5-5.1); Sodium Level 133 mmol/L (136-145)
[2019-04-12 14:56] LABS: Bacteria 0 SEEN /hpf (None Seen); Mucous, Urine 0 SEEN /hpf (<or=2+)
[2019-04-12 15:02] LABS: Color, Urine Yellow (Yellow); Glucose, Dipstick 50 mg/dl (Normal); Ketone-Dipstick Negative (Negative); Leukocyte Esterase-Dipstick 100 /ul (Negative); Nitrite-Dipstick Negative (Negative); Occult Blood-Urine Negative /ul (Negative); Protein-Dipstick 100 mg/dl (Negative); Specific Gravity, Urine 1.015 (1.002-1.030); Urine Bilirubin Dipstick Negative (Negative); Urine Clarity Clear (Clear); Urine Urobilinogen Normal (Normal)
[2019-04-12 15:13] LABS: Red Blood Cells-Urine 0-5 SEEN /hpf (0-5); Squamous Epithelial Cells - UA 0-5 SEEN /hpf (0-5); White Blood Cells 10-25 SEEN /hpf (0-5)
[2019-04-12 15:23] VITALS: BP 167/73; PULSE 60; RESP 16; O2SAT 96
--- NOTE | 2019-04-12 16:29 | ED.VISSUMM ---
- ER Visit Summary Date of Service: 04/12/19 Chief Complaint: Anemia History of Present Illness: The patient is a 63 M who sees Albert Davis, Dr. Chacon, and Dr. Mcfadden. He reports that he had a hemoglobin of 8.81-week ago and that 2 days ago he had blood work obtained his hemoglobin was 7.6. He was sent to the emerge department for evaluation for this. He denies any symptoms. No chest pain, shortness of breath, or lightheadedness. He denies any known source of blood loss. No nosebleeds, hematuria, or trauma. No blood in stools or black tarry stools. He is not on blood thinners. He does take a baby aspirin daily. He has never had a colonoscopy. Patient does report that he has had anemia in the past. He was given a dose of Procrit last June. He has not seen the wheelage clerk recently. Patient also reports that at the end of February he was admitted to the hospital and was found to have pyuria. There was no bacteria in his urine and was sent for culture. He was given a prescription for an antibiotic to take to develop symptoms of dysuria. He did not develop the symptoms of these did not take these. However, he developed a delirium and UTI and was admitted to [facility] from March 15 to April 07. He states that while he was there is a stopped his Lasix. He has had increased lower extremity edema since that time. He spoke with Florencia Madrid and was placed back on Lasix 40 mg twice daily 3 days ago and reports he had improvement in the swelling of his legs. Physical Examination: Vitals: Stable. Afebrile. General: Well-nourished and well-developed. Head: Normocephalic atraumatic. Neck: Supple, no lymphadenopathy. No JVD. Nontender. Cardiovascular: Regular rate and rhythm. No murmurs. Respiratory: No respiratory distress. Clear to auscultation bilaterally. Abdominal: Soft, nontender, nondistended, normal bowel sounds. No guarding, rebound, or peritoneal signs. Back: Nontender. Extremities: Nontender, 3+ pitting edema of his lower extremes bilaterally. Skin: Normal color, no rash. Neurologic: Alert and oriented ?3. Cranial nerves II through XII are intact. Normal strength and sensation. Psych: Normal affect. Test Results: CBC shows an H&H of 7.8 and 25.0, 7 neutrophils 74, monocytes of 8, monocytes of 13. Chem-7 shows a sodium 133, potassium 5.2, calcium 7.9, glucose 158, BUN of 59, creatinine 2.22. Coags are normal. UA shows 10-25 white blood cells with no bacteria. Emergency Department Course and Treatment: Patient rested comfortably without complaint. He was discussed with Dr. Anderson and was given a dose of Procrit subcu here. He was also given Levaquin. Dr. Anderson did look up the patient's urine culture from [facility] and it was enterococcus that was sensitive to Levaquin. He finished Augmentin yesterday. His urine was sent for culture here as well. Treatment Plan: The patient's creatinine clearance is 37. He will be discharged on 750 mg of Levaquin every other day. Instructed to follow-up with Dr. Mcfadden in 1 to 2 weeks for another exam. Return to the emergency department for any worsening symptoms. Disposition: To home in improved and stable condition. Impression: 1. Anemia. 2. Chronic renal insufficiency. 3. Pyuria. This note was generated with Hostspotation software. It may contain incorrect words, spelling, and punctuation that were not noted in review of the chart prior to signing ED Disposition - Plan for ED Patient: Disposition: Home or Assisted Living Instructions: ANEMIA, Type Not Specified (Adult) Prescriptions: Levofloxacin [Levaquin] 750 mg PO QODAY #5 tab Prescription Printed Referrals: Daniel Mcfadden MD [STAFF PHYSICIAN] - 1-2 Weeks
[2019-04-12] MEDS: Epoetin Alfa epbx 10,000 UNITS/ML 8000 UNIT SC (16:36)
[2019-04-12] MEDS: levoFLOXacin 750 MG Tablet PO (16:37)
[2019-04-12 16:45] VITALS: BP 174/72; PULSE 60; RESP 16; O2SAT 95
== END 2019-04-12 16:56 | disposition home or self-care (01) ==
LOC: ED 13:56
PROVIDERS: Emergency Provider Emergency Medicine; Family Provider Family Medicine; PCP Family Medicine
DX: D64.9 Anemia, unspecified (principal); N39.0 Urinary tract infection, site not specified; I12.9 Hypertensive chronic kidney disease with stage 1 through stage 4 chronic kidney disease, or unspecified chronic kidney disease; N18.9 Chronic kidney disease, unspecified; E10.22 Type 1 diabetes mellitus with diabetic chronic kidney disease; I25.10 Atherosclerotic heart disease of native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 angina pectoris; I25.2 Old myocardial infarction; Z95.1 Presence of aortocoronary bypass graft; Z79.82 Long term (current) use of aspirin; Z79.4 Long term (current) use of insulin; Z79.899 Other long term (current) drug therapy
CPT/HCPCS: 80048; 81001; 85025; 85610; 85730; 87086; 87088; 96372; 99284; A4216; Q5106

== ENCOUNTER → 2019-04-14 10:39 | Outpatient (CLI) | payer OTHER, SELFPAY ==
[2019-04-12 12:57] VITALS: BMI 28.4
[2019-04-14 11:42] LABS: Anion Gap 7 (5-15); BUN 60 mg/dL (7-18); Calcium,Total 8.2 mg/dL (8.5-10.1); Chloride 99 mmol/L (98-107); EST Glomerular Filtration Rate 29 mL/min (>60); Est Glom Filt Rate - Afr Amer 36 mL/min (>60); Glucose 71 mg/dL (74-106); Potassium 5.9 mmol/L (3.5-5.1); Sodium Level 132 mmol/L (136-145)
== END ==
PROVIDERS: Family Provider Family Medicine; PCP Family Medicine; Referring Provider Physician Assistant Medical; Visit Provider Physician Assistant Medical
DX: R60.0 Localized edema (principal)
CPT/HCPCS: 36415; 80048

== ENCOUNTER → 2019-04-15 08:15 | Outpatient (CLI) | payer OTHER, SELFPAY ==
[2019-04-14 11:55] VITALS: BMI 28.4
[2019-04-15 08:51] VITALS: BP 119/55; PULSE 58; RESP 16; TEMP 36.7; BMI 29.7
[2019-04-15 09:13] VITALS: BP 143/54; PULSE 58; RESP 16; TEMP 36.5
[2019-04-15 10:13] VITALS: BP 140/64; PULSE 58; RESP 16; TEMP 36.6; O2SAT 95
[2019-04-15] MEDS: Furosemide 40 MG/4 ML Vial IV (11:41)
[2019-04-15 11:49] VITALS: BP 150/64; PULSE 59; RESP 16; TEMP 36.6
== END ==
PROVIDERS: Family Provider Family Medicine; PCP Family Medicine; Referring Provider Physician Assistant Medical; Visit Provider Physician Assistant Medical
DX: D64.9 Anemia, unspecified (principal)
CPT/HCPCS: 36415; 36430; 86850; 86900; 86901; 86920; 86922; J7040; P9016; A4216; J1940

== ENCOUNTER → 2019-04-17 11:19 | Outpatient (CLI) | payer OTHER, SELFPAY ==
[2019-04-15 08:51] VITALS: BMI 29.7
[2019-04-17 12:42] LABS: Absolute Lymphocyte Count 0.62 X10^3/uL (0.83-4.51); Absolute Neutrophil Count 6.3 X10^3/uL (2.0-7.7); Basophil# 0.04 X10^3/uL; Basophil% 0.5 % (0-1); Eosinophil# 0.28 X10^3/uL; Eosinophils% 3.4 % (0-5); Hematocrit 26.7 % (40-54); Hemoglobin 8.4 g/dL (13.0-16.5); Lymphocyte # 0.62 X10^3/ul (4.0); Lymphocyte % 7.5 % (19-41); Mean Corp Hgb Conc 31.5 g/dL (32-36); Mean Corpuscular Hgb 29.8 pg (27.0-32.0); Mean Corpuscular Volume 94.7 fL (80-94); Mean Platelet Vol. 8.5 fl (6.2-12.0); Monocyte# 1.04 X10^3/uL; Monocyte% 12.5 % (0-10); NRBC Flagged by Analyzer 0 % (0-5); Neutrophil # 6.28 X10^3/uL (2.7-7.7); Neutrophil % 75.7 % (47-70); Platelet Count 475 K/mm3 (150-450); RBC Distribution Width CV 14.1 % (11.6-14.6); Red Blood Count 2.82 M/mm3 (4.6-6.2); White Blood Count 8.3 K/mm3 (4.4-11.0)
[2019-04-17 13:04] LABS: Hemoglobin A1c 8.2 % (4.2-6.3)
[2019-04-17 13:07] LABS: Albumin, Serum 1.6 g/dL (3.2-5.0); BUN 64 mg/dL (7-18); BUN/Creat Ratio 25.8 RATIO (10-20); Calcium,Total 8.2 mg/dL (8.5-10.1); Chloride 101 mmol/L (98-107); Creatinine, Serum 2.48 mg/dL (0.70-1.30); EST Glomerular Filtration Rate 28 mL/min (>60); Est Glom Filt Rate - Afr Amer 34 mL/min (>60); Ferritin 438 ng/mL (26-388); Glucose 78 mg/dL (74-106); Iron 28 ug/dL (65-175); Iron Binding Capacity,Total 203 ug/dL (250-450); PERCENT IRON SATURATION 13.8 % (15.0-55.0); Phosphorus 4.6 mg/dL (2.5-4.9); Potassium 4.8 mmol/L (3.5-5.1); Sodium Level 135 mmol/L (136-145)
== END ==
PROVIDERS: Family Provider Family Medicine; PCP Family Medicine; Referring Provider Internal Medicine Nephrology; Visit Provider Internal Medicine Nephrology
DX: N18.4 Chronic kidney disease, stage 4 (severe) (principal); D63.1 Anemia in chronic kidney disease
CPT/HCPCS: 36415; 80069; 82728; 83036; 83540; 83550; 85025

== ENCOUNTER → 2019-04-25 08:22 | Outpatient (CLI) | payer OTHER, SELFPAY ==
[2019-04-15 08:51] VITALS: BMI 29.7
[2019-04-25 09:25] LABS: Absolute Lymphocyte Count 0.72 X10^3/uL (0.83-4.51); Absolute Neutrophil Count 5.3 X10^3/uL (2.0-7.7); Basophil# 0.04 X10^3/uL; Basophil% 0.6 % (0-1); Eosinophil# 0.17 X10^3/uL; Eosinophils% 2.3 % (0-5); Hematocrit 27.5 % (40-54); Hemoglobin 8.6 g/dL (13.0-16.5); Lymphocyte # 0.72 X10^3/ul (4.0); Lymphocyte % 9.9 % (19-41); Mean Corp Hgb Conc 31.3 g/dL (32-36); Mean Corpuscular Hgb 29.6 pg (27.0-32.0); Mean Corpuscular Volume 94.5 fL (80-94); Mean Platelet Vol. 8.3 fl (6.2-12.0); Monocyte# 0.96 X10^3/uL; Monocyte% 13.3 % (0-10); NRBC Flagged by Analyzer 0 % (0-5); Neutrophil # 5.32 X10^3/uL (2.7-7.7); Neutrophil % 73.5 % (47-70); Platelet Count 348 K/mm3 (150-450); RBC Distribution Width CV 13.7 % (11.6-14.6); RBC Distribution Width SD 46.6 fl (35.1-43.9); Red Blood Count 2.91 M/mm3 (4.6-6.2); White Blood Count 7.2 K/mm3 (4.4-11.0)
[2019-04-25 09:27] LABS: Glucose, Dipstick 50 mg/dl (Normal); Ketone-Dipstick Negative (Negative); Leukocyte Esterase-Dipstick 100 /ul (Negative); Nitrite-Dipstick Negative (Negative); Occult Blood-Urine 10 /ul (Negative); Protein-Dipstick 100 mg/dl (Negative); Urine Bilirubin Dipstick Negative (Negative); Urine Urobilinogen Normal (Normal)
[2019-04-25 09:29] LABS: Color, Urine Yellow (Yellow); Urine Clarity Sl Cldy (Clear)
[2019-04-25 09:55] LABS: ALB/GLOB Ratio 0.3 RATIO (0.9-2.4); AST(SGOT) 62 U/L (15-37); Alanine Aminotransfer ALT/SGPT 84 U/L (16-61); Albumin, Serum 1.7 g/dL (3.2-5.0); Alkaline Phosphatase 179 U/L (45-117); Anion Gap 8 (5-15); BUN 65 mg/dL (7-18); BUN/Creat Ratio 29.3 RATIO (10-20); Bilirubin, Direct 0.09 mg/dL (0.00-0.30); Calcium,Total 7.7 mg/dL (8.5-10.1); Chloride 104 mmol/L (98-107); Cholesterol 88 mg/dL (200); Creatinine, Serum 2.22 mg/dL (0.70-1.30); EST Glomerular Filtration Rate 32 mL/min (>60); Est Glom Filt Rate - Afr Amer 39 mL/min (>60); Globulin 5.1 g/dL (2.2-4.2); Glucose 54 mg/dL (74-106); High Density Lipoprotein 39 mg/dL; Phosphorus 3.9 mg/dL (2.5-4.9); Potassium 4.7 mmol/L (3.5-5.1); Protein, Total 6.8 g/dL (6.4-8.2); Sodium Level 137 mmol/L (136-145); Triglycerides 43 mg/dL; Very Low Density Lipoprotein 9 mg/dL (5-40)
[2019-04-25 09:59] LABS: Vitamin D,25 Hydroxy 25.2 ng/mL (29.95-100.01)
[2019-04-25 10:00] LABS: PTHIN 116.5 pg/mL (18.4-80.1)
[2019-04-25 10:20] LABS: Microalbumin:Creatinine Ratio 2735.5 mg/g CRE (<30 mg/g CRE); Protein, Urine (Random) 234.2 mg/dL (<11.9); Protein:Creat Ratio 4243 mg/g CRE (0-200)
== END ==
PROVIDERS: Physician Assistant Medical; Family Provider Family Medicine; PCP Family Medicine; Referring Provider Internal Medicine Cardiovascular Disease; Visit Provider Internal Medicine Cardiovascular Disease
DX: N18.3 Chronic kidney disease, stage 3 (moderate) (principal); D63.1 Anemia in chronic kidney disease
CPT/HCPCS: 80053; 80061; 81002; 82043; 82248; 82306; 82570; 83970; 84100; 84156; 85025

== ENCOUNTER → 2019-04-29 14:16 | Outpatient (CLI) | payer OTHER, SELFPAY ==
[2019-04-29 13:19] VITALS: BMI 30.8
--- NOTE | 2019-04-29 14:25 | RAD_ITS ---
STUDY: X-RAY CHEST REASON FOR EXAM: Male, 63 years old. Chest pain TECHNIQUE: Frontal view of the chest COMPARISON: X-ray chest March 21, 2019 FINDINGS: Mild to moderate bilateral perihilar edema is present. There are trace bilateral effusions. There is no pneumothorax. The heart is enlarged. The visualized osseous structures are within normal limits. RAD/Chest PA and Lateral IMPRESSION: Mild to moderate bilateral perihilar edema and cardiomegaly. Trace bilateral effusions. Electronically Signed: Mauri Vargas, at 20:12 EDT Tel , Service support ,
== END ==
PROVIDERS: Family Provider Family Medicine; PCP Family Medicine; Referring Provider Physician Assistant Medical; Visit Provider Physician Assistant Medical
DX: I50.22 Chronic systolic (congestive) heart failure (principal)
CPT/HCPCS: 71046

== ENCOUNTER → 2019-05-06 14:25 | Outpatient (CLI) | payer OTHER, SELFPAY ==
[2019-04-29 13:19] VITALS: BMI 30.8
[2019-05-06 15:33] LABS: Anion Gap 7 (5-15); BUN 76 mg/dL (7-18); Chloride 104 mmol/L (98-107); Creatinine, Serum 2.17 mg/dL (0.70-1.30); EST Glomerular Filtration Rate 33 mL/min (>60); Est Glom Filt Rate - Afr Amer 40 mL/min (>60); Glucose 218 mg/dL (74-106); Potassium 5.1 mmol/L (3.5-5.1); Sodium Level 138 mmol/L (136-145)
== END ==
PROVIDERS: Family Provider Family Medicine; PCP Family Medicine; Referring Provider Physician Assistant Medical; Visit Provider Physician Assistant Medical
DX: I50.22 Chronic systolic (congestive) heart failure (principal)
CPT/HCPCS: 36415; 80048

== ENCOUNTER → 2019-05-09 12:11 | Outpatient (CLI) | payer OTHER, SELFPAY ==
[2019-04-29 13:19] VITALS: BMI 30.8
[2019-05-09 12:52] LABS: International Normalized Ratio 1.2; Prothrombin Time (Protime)PT. 14.8 SECONDS (11.7-14.9)
[2019-05-09 12:53] LABS: Partial Thromboplast Time 29.1 Seconds (24.1-36.2)
== END ==
PROVIDERS: Family Provider Family Medicine; PCP Family Medicine; Referring Provider Internal Medicine Nephrology; Visit Provider Internal Medicine Nephrology
DX: N18.9 Chronic kidney disease, unspecified (principal)
CPT/HCPCS: 36415; 85610; 85730

== ENCOUNTER → 2019-06-10 07:56 | Outpatient (CLI) | payer OTHER, SELFPAY ==
[2019-04-29 13:19] VITALS: BMI 30.8
--- NOTE | 2019-06-09 | KID_PTH ---
PATIENT: SHARON QUINONES LOC: CT U#:[id number] AGE/SX: 69/M ROOM: RE06/10/[address]: Dr. Daniel Mcfadden MD : [id number] BED: DIS: SPEC #: [id number] RECD: 06/10/19 10:18 STATUS: JOVANY RELionel #: [id number] ISABELA: 06/09/19 00:[address]: Daniel Mcfadden DEPT: SURGICAL PATHOLOGY RECD BY: Chacorta Gregorio ENTERED: 06/10/19 10:18 SP TYPE: KIDNEY OTHR DR: Dr. Blade Teixeira MD Tissues: Kidney, NOS Procedures: Electron Microscopy (ACH) Fluorescent Antibody (ACH) Sp St Grp II Kidney (ACH) Kidney Biopsy (ACH) Fluorescent antibody (ACH) add'l HEADER OPERATION: CT-guided kidney biopsy PRE-OP DIAGNOSIS: Chronic kidney disease from diabetic nephropathy, hypertension TISSUE SUBMITTED: Lower left kidney 18 gauge core x4 MICROSCOPIC DIAGNOSIS Kidney, needle biopsy: Nodular glomerulosclerosis, consistent with diabetic nephrosclerosis (see Microscopic Description and Comment). Diffuse global glomerulosclerosis (35 of 59 glomeruli on light microscopy globally sclerotic). Severe interstitial fibrosis and tubular atrophy. Severe arterio- and arteriolosclerosis. COMMENT Taken together, the light and immunofluorescence studies are diagnostic for nodular glomerulosclerosis and diffuse global glomerulosclerosis. There is also severe chronic interstitial change and vascular change. Although there are a number of etiologies that can result in nodular glomerulosclerosis, the patient's history and pathologic findings in the biopsy are consistent with diabetic nephrosclerosis. Electron microscopy will be performed as confirmation and the results issued as a supplement to this report. MICROSCOPIC DESCRIPTION A needle biopsy is available for review. There are approximately 59 glomeruli present, 35 of which are globally sclerotic. The non-sclerotic glomeruli all show nodular glomerulosclerosis. Glomeruli show no evidence of segmental scars, crescent formation, necrosis, thrombosis or inflammation. PAS, silver and trichrome stains highlight the nodular glomerulosclerosis but show no evidence of glomerular basement membrane double contours, spikes or fuchsinophilic immune-type deposits. Trichrome stain highlights severe interstitial fibrosis and tubular atrophy involving approximately 90% of the sampled cortical area. Scattered tubules are dilated and show hyaline casts. Arteries and arterioles show severe arterio- and arteriosclerosis, respectively. A [place] red stain for amyloid is negative. The tissue submitted for immunofluorescence studies contains 10 glomeruli. IgG, IgA, IgM, C3, C1q, albumin, fibrinogen, kappa and lambda light chains all show nonspecific staining. Electron microscopy studies will be performed and the results issued as a supplement to this report. GROSS DESCRIPTION The specimen is sent entirely to [facility] for diagnosis. Received with transport media labeled with the patient's name and left lower kidney biopsy are four cores of fonseca-pink soft tissue ranging in size from 1 to 2.1 cm in length. Tissue is submitted fresh for immunofluorescence, in glutaraldehyde for electron microscopy and the remaining in formalin for light microscopy.
[2019-06-10] VITALS (9 sets, daily range): BP systolic 133–190; BP diastolic 61–95; PULSE 52–60; RESP 12–19; TEMP 36.4; O2SAT 91–100; BMI 29.8
--- NOTE | 2019-06-10 07:58 | CT_ITS ---
PROCEDURE: CT GUIDED PERCUTANEOUS KIDNEY BIOPSY. DATE: June 10, 2019. INDICATION: Male, 63 years old. Proteinuria. Chronic stage III renal disease. PHYSICIAN: Enrike Pina M.D. MEDICATIONS: 2 mg of Versed and 50 mcg of fentanyl intravenously. Conscious sedation was started at 9:43 AM estimated at 9:55 AM. The patient was independently monitored by the department nurse. ACCESS SITE: Lower pole of the left kidney. NEEDLE: 18-gauge core biopsy needle. SPECIMEN: 4 18-gauge cores. EBL: None. COMPLICATIONS: None immediate. RADIATION DOSAGE (If Supplied By Facility): CTDIvol = ( 18 ) mGy, DLP = ( 767.71 ) mGycm The risks, benefits, and alternatives to the procedure and sedation were explained to the patient. The specific risk of hemorrhage requiring further treatment or intervention was detailed and accepted. Written informed consent was obtained. The patient was placed on the CT table in the prone position. Multiple axial images were obtained from the lung base through the caudal extent of the kidneys. An appropriate entry site was identified and a mae made on the skin. The skin overlying the [ left] posterior flank was prepped and draped in sterile fashion. 1% lidocaine was administered subcutaneously for local anesthesia. Initially, a 22 gauge needle was advanced and CT images confirmed good needle position. The 22 gauge needle was then exchanged for an 17 gauge introducer needle which was advanced. Repeat CT images confirmed good needle trajectory and tip position. The introducer needle was then advanced into the periphery of the inferior renal pole, and CT images were again obtained to confirm exact tip location. The inner stylet of the introducer needle was then removed and an 18 gauge coaxial needle was advanced thru the introducer needle and biopsy performed. A total of [ 4] passes were performed and the specimen collected was sent to Pathology for further evaluation. The needle was withdrawn. Hemostasis was achieved with manual compression and a sterile dressing was applied. Repeat CT images of the biopsy area was performed which demonstrated no gross bleeding or hematoma. The patient tolerated the procedure well without immediate complications. The patient was transported to the [floor/recovery area] in stable condition. CT/Biopsy/Inj or Needle Placement IMPRESSION: Successful CT guided percutaneous kidney biopsy. Electronically Signed: Enrike Pina, at 10:50 EDT , Service support ,
[2019-06-10 08:39] LABS: Platelet Count 259 K/mm3 (150-450)
[2019-06-10 08:48] LABS: International Normalized Ratio 1.2; Prothrombin Time (Protime)PT. 14.9 SECONDS (11.7-14.9)
[2019-06-10 08:49] LABS: Partial Thromboplast Time 28.1 Seconds (24.1-36.2)
[2019-06-10] MEDS: Midazolam 2 MG/2 ML Syringe IV (09:43)
[2019-06-10] MEDS: fentaNYL 100 MCG/2 ML Ampul IV (09:46)
[2019-06-10 10:27] LABS: Hematocrit 27.7 % (40-54); Hemoglobin 8.6 g/dL (13.0-16.5); Mean Corpuscular Volume 93.3 fL (80-94); Mean Platelet Vol. 9.4 fl (6.2-12.0); RBC Distribution Width CV 14.9 % (11.6-14.6); RBC Distribution Width SD 51.5 fl (35.1-43.9); Red Blood Count 2.97 M/mm3 (4.6-6.2)
[2019-06-10 10:46] LABS: PTHIN 196.7 pg/mL (18.4-80.1); Vitamin D,25 Hydroxy 29.1 ng/mL (29.95-100.01)
[2019-06-10 10:51] LABS: Albumin, Serum 2.5 g/dL (3.2-5.0); BUN 67 mg/dL (7-18); BUN/Creat Ratio 31.9 RATIO (10-20); Calcium,Total 8.5 mg/dL (8.5-10.1); Chloride 102 mmol/L (98-107); EST Glomerular Filtration Rate 34 mL/min (>60); Est Glom Filt Rate - Afr Amer 41 mL/min (>60); Estimated Creatinine Clearance 38.14 ml/min; Ferritin 299 ng/mL (26-388); Glucose 97 mg/dL (74-106); Iron 40 ug/dL (65-175); Iron Binding Capacity,Total 254 ug/dL (250-450); Phosphorus 4.1 mg/dL (2.5-4.9); Potassium 4.2 mmol/L (3.5-5.1); Sodium Level 139 mmol/L (136-145)
[2019-06-10 12:16] LABS: Color, Urine Yellow (Yellow); Glucose, Dipstick 100 mg/dl (Normal); Ketone-Dipstick Negative (Negative); Leukocyte Esterase-Dipstick Negative /ul (Negative); Nitrite-Dipstick Negative (Negative); Occult Blood-Urine 10 /ul (Negative); Protein-Dipstick 100 mg/dl (Negative); Specific Gravity, Urine 1.015 (1.002-1.030); Urine Bilirubin Dipstick Negative (Negative); Urine Clarity Sl. Cloudy (Clear); Urine Urobilinogen Normal (Normal)
[2019-06-10 14:29] LABS: Protein, Urine (Random) 281.9 mg/dL (<11.9); Protein:Creat Ratio 5506 mg/g CRE (0-200)
== END ==
PROVIDERS: Family Provider Family Medicine; PCP Family Medicine; Referring Provider Internal Medicine Nephrology; Visit Provider Internal Medicine Nephrology
DX: E11.21 Type 2 diabetes mellitus with diabetic nephropathy (principal); I12.9 Hypertensive chronic kidney disease with stage 1 through stage 4 chronic kidney disease, or unspecified chronic kidney disease; E11.22 Type 2 diabetes mellitus with diabetic chronic kidney disease; N18.3 Chronic kidney disease, stage 3 (moderate); N17.9 Acute kidney failure, unspecified; E87.5 Hyperkalemia; R80.9 Proteinuria, unspecified; R60.9 Edema, unspecified; I25.10 Atherosclerotic heart disease of native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 angina pectoris; I25.2 Old myocardial infarction; M10.9 Gout, unspecified; M19.90 Unspecified osteoarthritis, unspecified site; Z95.1 Presence of aortocoronary bypass graft; Z79.4 Long term (current) use of insulin; Z79.82 Long term (current) use of aspirin; Z79.899 Other long term (current) drug therapy
CPT/HCPCS: 50200; 36415; 77012; 80069; 81002; 82043; 82306; 82570; 82728; 83540; 83550; 83970; 84156; 85027; 85610; 85730; 88305; 88313; 88346; 88348; 88350; 99156; J7040; A4216

== ENCOUNTER → 2019-06-20 08:47 | Outpatient (CLI) | payer OTHER, SELFPAY ==
[2019-06-19 09:53] VITALS: BMI 31.2
--- NOTE | 2019-06-20 08:53 | US_ITS ---
STUDY: ABDOMINAL ULTRASOUND REASON FOR EXAM: Male, 63 years old. Ascites TECHNIQUE: Transabdominal ultrasound was performed with real-time and static allred scale imaging. TECHNICAL QUALITY: Adequate. COMPARISON: None. FINDINGS: Liver: The liver measures 19.8 cm. There is increased echogenicity consistent with fatty infiltration. The bile ducts are within normal limits. There is hepatic color flow. The direction of portal flow is hepatopetal. There is demonstrated brief reversal of hepatic flow. Portal flow is hepatopetal. There is no demonstrated mass lesion. Gallbladder: Normal distended gallbladder. The gallbladder wall measures 6 mm. There is a negative sonographic Kam's sign. There is no pericholecystic fluid. There are no gallstones. Common Bile Duct (C.B.D.): The common bile duct measures 5 mm. Pancreas: Normal size of the head, body and tail of the pancreas. There is normal echogenicity of the pancreas. There is no demonstrated pancreatic mass or cyst. Spleen: Normal size of the spleen. The spleen measures 11.6 x 3.9 x 5.3 cm. There is a tiny echogenic focus of the spleen consistent with calcified granuloma. Right Kidney: Normal size of the right kidney. The right kidney measures 13.0 x 4.7 x 4.5 cm. Normal renal cortex. Right renal cortex measures 1.1 cm in thickness. . There is no demonstrated renal mass or cyst. There is no right hydronephrosis. Left Kidney: Normal size of the left kidney. The left kidney measures 12.8 x 5.5 x 4.8 cm. Normal renal cortex. Left renal cortex measures 1.3 cm. There is no demonstrated renal mass or cyst. There is no left hydronephrosis. Aorta: The abdominal aorta is within normal limits in caliber and contour and measures 2.3 x 1.8 cm in diameter proximally, 1.8 x 2.2 cm in the mid abdominal region, and 1.6 x 1.7 cm distally. I.V.C.: The IVC is patent. There is no ascites. There is a small right-sided pleural effusion. US/Abdomen Complete IMPRESSION: 1. Echogenic liver consistent with steatosis. 2. There is diffuse gallbladder wall thickening. 3. There is brief reversal of hepatic flow. 4. There is a small right-sided pleural effusion. 5. Tiny echogenic focus of the spleen consistent with calcified granuloma. Electronically Signed: Hakan Jean-Baptiste MD at 23:59 EDT , Service support ,
== END ==
PROVIDERS: Family Provider Family Medicine; PCP Family Medicine; Referring Provider Physician Assistant Medical; Visit Provider Physician Assistant Medical
DX: R94.5 Abnormal results of liver function studies (principal)
CPT/HCPCS: 76700

== ENCOUNTER → 2019-07-03 10:19 | Outpatient (CLI) | payer OTHER, SELFPAY ==
[2019-06-19 09:53] VITALS: BMI 31.2
[2019-07-03 12:08] LABS: Albumin, Serum 2.7 g/dL (3.2-5.0); BUN 105 mg/dL (7-18); BUN/Creat Ratio 40.7 RATIO (10-20); Calcium,Total 9.1 mg/dL (8.5-10.1); Chloride 94 mmol/L (98-107); Creatinine, Serum 2.58 mg/dL (0.70-1.30); EST Glomerular Filtration Rate 27 mL/min (>60); Est Glom Filt Rate - Afr Amer 33 mL/min (>60); Glucose 80 mg/dL (74-106); Phosphorus 4.5 mg/dL (2.5-4.9); Potassium 4.3 mmol/L (3.5-5.1); Sodium Level 135 mmol/L (136-145)
== END ==
PROVIDERS: Family Provider Family Medicine; PCP Family Medicine; Referring Provider Internal Medicine Nephrology; Visit Provider Internal Medicine Nephrology
DX: N18.3 Chronic kidney disease, stage 3 (moderate) (principal)
CPT/HCPCS: 36415; 80069

== ENCOUNTER → 2019-07-23 14:54 | Outpatient (CLI) | payer OTHER, SELFPAY ==
[2019-06-19 09:53] VITALS: BMI 31.2
[2019-07-23 17:42] LABS: Absolute Lymphocyte Count 0.68 X10^3/uL (0.83-4.51); Absolute Neutrophil Count 5.8 X10^3/uL (2.0-7.7); Basophil# 0.05 X10^3/uL; Basophil% 0.7 % (0-1); Eosinophils% 2.6 % (0-5); Hematocrit 26.8 % (40-54); Hemoglobin 8.4 g/dL (13.0-16.5); Lymphocyte # 0.68 X10^3/ul (4.0); Lymphocyte % 8.9 % (19-41); Mean Corp Hgb Conc 31.3 g/dL (32-36); Mean Corpuscular Hgb 28.7 pg (27.0-32.0); Mean Corpuscular Volume 91.5 fL (80-94); Mean Platelet Vol. 9.6 fl (6.2-12.0); Monocyte# 0.86 X10^3/uL; Monocyte% 11.2 % (0-10); NRBC Flagged by Analyzer 0 % (0-5); Neutrophil # 5.84 X10^3/uL (2.7-7.7); Neutrophil % 76.2 % (47-70); Platelet Count 275 K/mm3 (150-450); RBC Distribution Width CV 14.8 % (11.6-14.6); RBC Distribution Width SD 49.7 fl (35.1-43.9); Red Blood Count 2.93 M/mm3 (4.6-6.2); White Blood Count 7.7 K/mm3 (4.4-11.0)
[2019-07-23 18:04] LABS: Protein, Urine (Random) 367.4 mg/dL (<11.9); Protein:Creat Ratio 6134 mg/g CRE (0-200)
[2019-07-23 18:05] LABS: Hemoglobin A1c 8.5 % (4.2-6.3)
[2019-07-23 18:06] LABS: Vitamin B12 1286 pg/mL (211-911); Vitamin D,25 Hydroxy 31.7 ng/mL (29.95-100.01)
[2019-07-23 19:00] LABS: ALB/GLOB Ratio 0.6 RATIO (0.9-2.4); AST(SGOT) 45 U/L (15-37); Alanine Aminotransfer ALT/SGPT 70 U/L (16-61); Albumin, Serum 2.6 g/dL (3.2-5.0); Alkaline Phosphatase 163 U/L (45-117); Anion Gap 8 (5-15); BUN 98 mg/dL (7-18); BUN/Creat Ratio 42.6 RATIO (10-20); Calcium,Total 8.5 mg/dL (8.5-10.1); Chloride 102 mmol/L (98-107); Cholesterol 126 mg/dL (200); EST Glomerular Filtration Rate 31 mL/min (>60); Est Glom Filt Rate - Afr Amer 37 mL/min (>60); Ferritin 391 ng/mL (26-388); Globulin 4.5 g/dL (2.2-4.2); Glucose 178 mg/dL (74-106); High Density Lipoprotein 54 mg/dL; Iron 39 ug/dL (65-175); Iron Binding Capacity,Total 243 ug/dL (250-450); Protein, Total 7.1 g/dL (6.4-8.2); Sodium Level 133 mmol/L (136-145); Thyroid Stim Hormone (TSH) 1.94 uIU/mL (0.358-3.74); Triglycerides 113 mg/dL; Very Low Density Lipoprotein 23 mg/dL (5-40)
[2019-07-28 21:17] LABS: Vitamin B1, Thiamine 100.2 nmol/L (66.5-200.0)
== END ==
PROVIDERS: Family Provider Family Medicine; PCP Family Medicine; Referring Provider Family Medicine; Visit Provider Family Medicine
DX: I12.9 Hypertensive chronic kidney disease with stage 1 through stage 4 chronic kidney disease, or unspecified chronic kidney disease (principal); N18.3 Chronic kidney disease, stage 3 (moderate); E11.22 Type 2 diabetes mellitus with diabetic chronic kidney disease; D63.1 Anemia in chronic kidney disease; E11.42 Type 2 diabetes mellitus with diabetic polyneuropathy; E78.5 Hyperlipidemia, unspecified
CPT/HCPCS: 80053; 80061; 82306; 82570; 82607; 82728; 82746; 83036; 83540; 83550; 84156; 84425; 84443; 85025

== ENCOUNTER → 2019-07-29 11:53 | Outpatient (CLI) | payer OTHER, SELFPAY ==
[2019-06-19 09:53] VITALS: BMI 31.2
[2019-07-29 12:20] LABS: Hematocrit 26.6 % (40-54); Hemoglobin 8.5 g/dL (13.0-16.5)
[2019-07-29 12:34] VITALS: BP 157/73; PULSE 61; RESP 16; TEMP 36.4; O2SAT 96; BMI 26.6
[2019-07-29 12:40] LABS: Albumin, Serum 2.7 g/dL (3.2-5.0); Anion Gap 7 (5-15); BUN 98 mg/dL (7-18); BUN/Creat Ratio 38.6 RATIO (10-20); Calcium,Total 8.7 mg/dL (8.5-10.1); Chloride 105 mmol/L (98-107); Creatinine, Serum 2.54 mg/dL (0.70-1.30); EST Glomerular Filtration Rate 28 mL/min (>60); Est Glom Filt Rate - Afr Amer 33 mL/min (>60); Estimated Creatinine Clearance 31.53 ml/min; Ferritin 369 ng/mL (26-388); Glucose 91 mg/dL (74-106); Iron 35 ug/dL (65-175); Iron Binding Capacity,Total 252 ug/dL (250-450); PERCENT IRON SATURATION 13.9 % (15.0-55.0); Phosphorus 4.7 mg/dL (2.5-4.9); Potassium 5.1 mmol/L (3.5-5.1); Sodium Level 135 mmol/L (136-145)
[2019-07-29] MEDS: Epoetin Alfa epbx 10,000 UNITS/ML 10000 UNIT IV (13:21)
[2019-07-29 14:46] LABS: PTHIN 111.5 pg/mL (18.4-80.1)
== END ==
PROVIDERS: Family Provider Family Medicine; PCP Family Medicine; Referring Provider Internal Medicine Nephrology; Visit Provider Internal Medicine Nephrology
DX: N18.3 Chronic kidney disease, stage 3 (moderate) (principal); D63.1 Anemia in chronic kidney disease
CPT/HCPCS: 96374; 36415; 80048; 82040; 82728; 83540; 83550; 83970; 84100; 85014; 85018; A4216; Q5106

== ENCOUNTER → 2019-07-31 09:42 | Outpatient (CLI) | payer OTHER, SELFPAY ==
[2019-07-29 12:34] VITALS: BMI 26.6
== END ==
PROVIDERS: Family Provider Family Medicine; PCP Family Medicine; Referring Provider Physician Assistant Medical; Visit Provider Physician Assistant Medical
DX: D64.9 Anemia, unspecified (principal); R94.5 Abnormal results of liver function studies
CPT/HCPCS: 82274

== ENCOUNTER → 2019-08-05 10:51 | Outpatient (CLI) | payer OTHER, SELFPAY ==
[2019-07-29 12:34] VITALS: BMI 26.6
[2019-08-01 16:02] VITALS: BMI 27.5
[2019-08-05 11:08] VITALS: BP 158/86; PULSE 64; RESP 16; TEMP 36.6; O2SAT 97; BMI 27.5
[2019-08-05] MEDS: Epoetin Alfa epbx 10,000 UNITS/ML 10000 UNIT SC (11:30)
== END ==
PROVIDERS: Family Provider Family Medicine; PCP Family Medicine; Referring Provider Internal Medicine Nephrology; Visit Provider Internal Medicine Nephrology
DX: N18.3 Chronic kidney disease, stage 3 (moderate) (principal); D63.1 Anemia in chronic kidney disease
CPT/HCPCS: 96372; Q5106

== ENCOUNTER → 2019-08-12 14:16 | Outpatient (CLI) | payer OTHER, SELFPAY ==
[2019-08-05 11:08] VITALS: BMI 27.5
[2019-08-12 14:39] LABS: Hematocrit 27.7 % (40-54); Hemoglobin 8.9 g/dL (13.0-16.5)
[2019-08-12 14:57] VITALS: BP 155/75; PULSE 42; RESP 16; TEMP 36.3; O2SAT 97; BMI 26.9
[2019-08-12] MEDS: Epoetin Alfa epbx 10,000 UNITS/ML 10000 UNIT SC (14:59)
== END ==
PROVIDERS: Family Provider Family Medicine; PCP Family Medicine; Referring Provider Internal Medicine Nephrology; Visit Provider Internal Medicine Nephrology
DX: N18.3 Chronic kidney disease, stage 3 (moderate) (principal); D63.1 Anemia in chronic kidney disease
CPT/HCPCS: 36415; 85014; 85018; 96372; Q5106

== ENCOUNTER → 2019-08-19 10:21 | Outpatient (CLI) | payer OTHER, SELFPAY ==
[2019-08-05 11:08] VITALS: BMI 27.5
[2019-08-12 14:57] VITALS: BMI 26.9
[2019-08-19 10:32] VITALS: BP 169/90; PULSE 62; RESP 16; TEMP 36.8; O2SAT 96; BMI 27.2
[2019-08-19 10:43] VITALS: BP 168/89
[2019-08-19] MEDS: Epoetin Alfa epbx 10,000 UNITS/ML 10000 UNIT SC (10:43)
== END ==
PROVIDERS: Family Provider Family Medicine; PCP Family Medicine; Referring Provider Internal Medicine Nephrology; Visit Provider Internal Medicine Nephrology
DX: N18.3 Chronic kidney disease, stage 3 (moderate) (principal); D63.1 Anemia in chronic kidney disease
CPT/HCPCS: 96372; Q5106

== ENCOUNTER → 2019-08-26 10:18 | Outpatient (CLI) | payer OTHER, SELFPAY ==
[2019-08-05 11:08] VITALS: BMI 27.5
[2019-08-19 10:32] VITALS: BMI 27.2
[2019-08-26 10:49] LABS: Hematocrit 29.3 % (40-54); Hemoglobin 9.2 g/dL (13.0-16.5)
[2019-08-26 11:06] LABS: Albumin, Serum 2.7 g/dL (3.2-5.0); Anion Gap 7 (5-15); BUN 96 mg/dL (7-18); Calcium,Total 8.7 mg/dL (8.5-10.1); Chloride 104 mmol/L (98-107); EST Glomerular Filtration Rate 29 mL/min (>60); Est Glom Filt Rate - Afr Amer 36 mL/min (>60); Ferritin 218 ng/mL (26-388); Glucose 138 mg/dL (74-106); Iron 44 ug/dL (65-175); Iron Binding Capacity,Total 255 ug/dL (250-450); PERCENT IRON SATURATION 17.3 % (15.0-55.0); Phosphorus 5.8 mg/dL (2.5-4.9); Potassium 4.8 mmol/L (3.5-5.1); Sodium Level 135 mmol/L (136-145)
[2019-08-26 11:15] LABS: PTHIN 113.6 pg/mL (18.4-80.1)
[2019-08-26 11:45] VITALS: BP 163/73; PULSE 61; RESP 16; TEMP 36.8; O2SAT 97; BMI 27.3
[2019-08-26] MEDS: Epoetin Alfa epbx 10,000 UNITS/ML 12500 UNIT SC (11:52)
== END ==
PROVIDERS: Family Provider Family Medicine; PCP Family Medicine; Referring Provider Internal Medicine Nephrology; Visit Provider Internal Medicine Nephrology
DX: N18.3 Chronic kidney disease, stage 3 (moderate) (principal); D63.1 Anemia in chronic kidney disease
CPT/HCPCS: 36415; 80048; 82040; 82728; 83540; 83550; 83970; 84100; 85014; 85018; 96372; Q5106

== ENCOUNTER → 2019-09-02 13:46 | Outpatient (CLI) | payer OTHER, SELFPAY ==
[2019-08-26 11:45] VITALS: BMI 27.3
[2019-09-02 14:11] VITALS: BP 154/72; PULSE 59; RESP 16; TEMP 36.7; BMI 27.3
[2019-09-02] MEDS: Epoetin Alfa epbx 10,000 UNITS/ML 12500 UNIT SC (14:27)
== END ==
PROVIDERS: Family Provider Family Medicine; PCP Family Medicine; Referring Provider Internal Medicine Nephrology; Visit Provider Internal Medicine Nephrology
DX: N18.3 Chronic kidney disease, stage 3 (moderate) (principal); D63.1 Anemia in chronic kidney disease
CPT/HCPCS: 96372; Q5106

== ENCOUNTER → 2019-09-09 13:55 | Outpatient (CLI) | payer OTHER, SELFPAY ==
[2019-08-26 11:45] VITALS: BMI 27.3
[2019-09-02 14:11] VITALS: BMI 27.3
[2019-09-09 14:12] LABS: Hematocrit 32.9 % (40-54); Hemoglobin 10.4 g/dL (13.0-16.5)
[2019-09-09 14:25] VITALS: BP 159/67; PULSE 64; RESP 16; TEMP 36.3; O2SAT 95; BMI 26.4
[2019-09-09] MEDS: Epoetin Alfa epbx 10,000 UNITS/ML 12500 UNIT SC (14:34)
== END ==
PROVIDERS: Family Provider Family Medicine; PCP Family Medicine; Referring Provider Internal Medicine Nephrology; Visit Provider Internal Medicine Nephrology
DX: N18.3 Chronic kidney disease, stage 3 (moderate) (principal); D63.1 Anemia in chronic kidney disease
CPT/HCPCS: 36415; 85014; 85018; 96372; Q5106

== ENCOUNTER → 2019-09-16 13:48 | Outpatient (CLI) | payer OTHER, SELFPAY ==
[2019-08-26 11:45] VITALS: BMI 27.3
[2019-09-09 14:25] VITALS: BMI 26.4
[2019-09-16 13:58] VITALS: BP 149/69; PULSE 66; RESP 16; TEMP 36.4; O2SAT 95; BMI 26.6
[2019-09-16] MEDS: Epoetin Alfa epbx 10,000 UNITS/ML 12500 UNIT SC (14:01)
== END ==
PROVIDERS: Family Provider Family Medicine; PCP Family Medicine; Referring Provider Internal Medicine Nephrology; Visit Provider Internal Medicine Nephrology
DX: N18.3 Chronic kidney disease, stage 3 (moderate) (principal); D63.1 Anemia in chronic kidney disease
CPT/HCPCS: 96372; Q5106

== ENCOUNTER → 2019-09-23 13:49 | Outpatient (CLI) | payer OTHER, SELFPAY ==
[2019-08-26 11:45] VITALS: BMI 27.3
[2019-09-16 13:58] VITALS: BMI 26.6
[2019-09-23 14:32] LABS: Hematocrit 35.9 % (40-54); Hemoglobin 11.3 g/dL (13.0-16.5)
[2019-09-23 14:49] VITALS: BP 172/79; PULSE 60; RESP 16; TEMP 36.4; O2SAT 98; BMI 26.9
[2019-09-23 14:49] LABS: Albumin, Serum 2.6 g/dL (3.2-5.0); Anion Gap 5 (5-15); BUN 79 mg/dL (7-18); BUN/Creat Ratio 33.6 RATIO (10-20); Calcium,Total 8.5 mg/dL (8.5-10.1); Chloride 101 mmol/L (98-107); Creatinine, Serum 2.35 mg/dL (0.70-1.30); EST Glomerular Filtration Rate 30 mL/min (>60); Est Glom Filt Rate - Afr Amer 36 mL/min (>60); Ferritin 137 ng/mL (26-388); Glucose 156 mg/dL (74-106); Iron 32 ug/dL (65-175); Iron Binding Capacity,Total 273 ug/dL (250-450); PERCENT IRON SATURATION 11.7 % (15.0-55.0); Phosphorus 4.9 mg/dL (2.5-4.9); Potassium 4.9 mmol/L (3.5-5.1); Sodium Level 132 mmol/L (136-145)
[2019-09-23] MEDS: Epoetin Alfa epbx 10,000 UNITS/ML 15000 UNIT SC (15:04)
[2019-09-23 15:18] LABS: PTHIN 151.4 pg/mL (18.4-80.1)
== END ==
PROVIDERS: Family Provider Family Medicine; PCP Family Medicine; Referring Provider Internal Medicine Nephrology; Visit Provider Internal Medicine Nephrology
DX: N18.3 Chronic kidney disease, stage 3 (moderate) (principal); D63.1 Anemia in chronic kidney disease
CPT/HCPCS: 36415; 80048; 82040; 82728; 83540; 83550; 83970; 84100; 85014; 85018; 96372; Q5106

== ENCOUNTER → 2019-09-30 13:43 | Outpatient (CLI) | payer OTHER, SELFPAY ==
[2019-09-16 13:58] VITALS: BMI 26.6
[2019-09-23 14:49] VITALS: BMI 26.9
[2019-09-30 13:50] VITALS: BP 160/74; PULSE 65; RESP 18; TEMP 35.9; O2SAT 95; BMI 27.1
[2019-09-30] MEDS: Epoetin Alfa epbx 10,000 UNITS/ML 15000 UNIT SC (14:06)
== END ==
PROVIDERS: PCP Family Medicine; Referring Provider Internal Medicine Nephrology; Visit Provider Internal Medicine Nephrology
DX: N18.3 Chronic kidney disease, stage 3 (moderate) (principal); D63.1 Anemia in chronic kidney disease
CPT/HCPCS: 96372; Q5106

== ENCOUNTER → 2019-10-07 14:53 | Outpatient (CLI) | payer OTHER, SELFPAY ==
[2019-09-16 13:58] VITALS: BMI 26.6
[2019-09-30 13:50] VITALS: BMI 27.1
[2019-10-07 14:58] VITALS: BP 163/82; PULSE 63; RESP 16; TEMP 36; O2SAT 96; BMI 27.6
[2019-10-07 15:15] LABS: Hematocrit 35.9 % (40-54); Hemoglobin 11.2 g/dL (13.0-16.5)
[2019-10-07] MEDS: Epoetin Alfa epbx 10,000 UNITS/ML 15000 UNIT SC (15:43)
== END ==
PROVIDERS: PCP Family Medicine; Referring Provider Internal Medicine Nephrology; Visit Provider Internal Medicine Nephrology
DX: N18.3 Chronic kidney disease, stage 3 (moderate) (principal); D63.1 Anemia in chronic kidney disease
CPT/HCPCS: 36415; 85014; 85018; 96372; Q5106

== ENCOUNTER → 2019-10-14 14:22 | Outpatient (CLI) | payer OTHER, SELFPAY ==
[2019-10-07 14:58] VITALS: BMI 27.6
[2019-10-14 14:30] VITALS: BP 165/84; PULSE 66; RESP 16; TEMP 36.4; O2SAT 92; BMI 27.6
[2019-10-14] MEDS: Epoetin Alfa epbx 10,000 UNITS/ML 15000 UNIT SC (14:52)
== END ==
PROVIDERS: PCP Family Medicine; Referring Provider Internal Medicine Nephrology; Visit Provider Internal Medicine Nephrology
DX: N18.3 Chronic kidney disease, stage 3 (moderate) (principal); D63.1 Anemia in chronic kidney disease
CPT/HCPCS: 96372; Q5106

== ENCOUNTER → 2019-10-21 14:23 | Outpatient (CLI) | payer OTHER, MEDICAID, SELFPAY ==
[2019-10-07 14:58] VITALS: BMI 27.6
[2019-10-14 14:30] VITALS: BMI 27.6
[2019-10-21 14:54] VITALS: BP 175/73; PULSE 63; RESP 18; TEMP 36.9; O2SAT 91; BMI 27.3
[2019-10-21 15:00] LABS: Hematocrit 38.7 % (40-54); Hemoglobin 12.1 g/dL (13.0-16.5)
[2019-10-21 15:17] LABS: Albumin, Serum 2.4 g/dL (3.2-5.0); Anion Gap 5 (5-15); BUN 72 mg/dL (7-18); BUN/Creat Ratio 27.3 RATIO (10-20); Calcium,Total 8.4 mg/dL (8.5-10.1); Chloride 102 mmol/L (98-107); Creatinine, Serum 2.64 mg/dL (0.70-1.30); EST Glomerular Filtration Rate 26 mL/min (>60); Est Glom Filt Rate - Afr Amer 32 mL/min (>60); Estimated Creatinine Clearance 30.34 ml/min; Ferritin 100 ng/mL (26-388); Glucose 241 mg/dL (74-106); Iron 28 ug/dL (65-175); Iron Binding Capacity,Total 263 ug/dL (250-450); PERCENT IRON SATURATION 10.6 % (15.0-55.0); Potassium 4.5 mmol/L (3.5-5.1); Sodium Level 135 mmol/L (136-145)
[2019-10-21] MEDS: Epoetin Alfa epbx 10,000 UNITS/ML 15000 UNIT SC (15:18)
[2019-10-21 15:38] LABS: PTHIN 135.2 pg/mL (18.4-80.1)
[2019-10-21 22:55] LABS: Xtra Tube EP Lab EXTRA TUBE
== END ==
PROVIDERS: PCP Family Medicine; Referring Provider Internal Medicine Nephrology; Visit Provider Internal Medicine Nephrology
DX: N18.3 Chronic kidney disease, stage 3 (moderate) (principal); D63.1 Anemia in chronic kidney disease
CPT/HCPCS: 80048; 82040; 82728; 83540; 83550; 83970; 84100; 85014; 85018; 96372; Q5106

== ENCOUNTER → 2019-11-04 13:38 | Outpatient (CLI) | payer OTHER, MEDICAID, SELFPAY ==
[2019-10-07 14:58] VITALS: BMI 27.6
[2019-10-21 14:54] VITALS: BMI 27.3
[2019-11-04 14:17] LABS: Hematocrit 39.5 % (40-54); Hemoglobin 12.3 g/dL (13.0-16.5)
[2019-11-04 14:32] VITALS: BP 176/72; PULSE 66; RESP 16; TEMP 36.3; O2SAT 92; BMI 26.5
[2019-11-04] MEDS: Epoetin Alfa epbx 10,000 UNITS/ML 15000 UNIT SC (14:45)
== END ==
PROVIDERS: PCP Family Medicine; Referring Provider Internal Medicine Nephrology; Visit Provider Internal Medicine Nephrology
DX: N18.3 Chronic kidney disease, stage 3 (moderate) (principal); D63.1 Anemia in chronic kidney disease
CPT/HCPCS: 36415; 85014; 85018; 96372; Q5106

== ENCOUNTER → 2019-11-25 14:17 | Outpatient (CLI) | payer MEDICAID, SELFPAY ==
[2019-10-21 14:54] VITALS: BMI 27.3
[2019-11-06 13:06] VITALS: BMI 26.5
[2019-11-25 15:03] LABS: Hematocrit 39.1 % (40-54); Hemoglobin 12.1 g/dL (13.0-16.5)
[2019-11-25 15:09] VITALS: BP 173/74; PULSE 62; RESP 18; TEMP 36.4; O2SAT 92; BMI 26.2
[2019-11-25] MEDS: Epoetin Alfa epbx 10,000 UNITS/ML 15000 UNIT SC (15:21)
[2019-11-25 15:22] LABS: Albumin, Serum 2.6 g/dL (3.2-5.0); Anion Gap 6 (5-15); BUN 76 mg/dL (7-18); BUN/Creat Ratio 29.6 RATIO (10-20); Calcium,Total 8.5 mg/dL (8.5-10.1); Chloride 105 mmol/L (98-107); Creatinine, Serum 2.57 mg/dL (0.70-1.30); EST Glomerular Filtration Rate 27 mL/min (>60); Est Glom Filt Rate - Afr Amer 33 mL/min (>60); Estimated Creatinine Clearance 30.77 ml/min; Ferritin 163 ng/mL (26-388); Glucose 192 mg/dL (74-106); Iron 88 ug/dL (65-175); Iron Binding Capacity,Total 265 ug/dL (250-450); PERCENT IRON SATURATION 33.2 % (15.0-55.0); Phosphorus 5.4 mg/dL (2.5-4.9); Potassium 5.2 mmol/L (3.5-5.1); Sodium Level 138 mmol/L (136-145)
[2019-11-25 15:31] LABS: PTHIN 159.2 pg/mL (18.4-80.1)
[2019-11-25 23:00] LABS: Xtra Tube EP Lab EXTRA TUBE
== END ==
PROVIDERS: PCP Family Medicine; Referring Provider Internal Medicine Nephrology; Visit Provider Internal Medicine Nephrology
DX: N18.3 Chronic kidney disease, stage 3 (moderate) (principal); D63.1 Anemia in chronic kidney disease
CPT/HCPCS: 36415; 80048; 82040; 82728; 83540; 83550; 83970; 84100; 85014; 85018; 96372; Q5106

== ENCOUNTER → 2019-12-23 14:24 | Outpatient (CLI) | payer MEDICAID, SELFPAY ==
[2019-11-06 13:06] VITALS: BMI 26.5
[2019-12-23 15:26] LABS: Hematocrit 34.7 % (40-54); Hemoglobin 10.9 g/dL (13.0-16.5)
[2019-12-23 15:33] VITALS: BP 174/74; PULSE 62; RESP 16; TEMP 36.6; O2SAT 96; BMI 26.9
[2019-12-23] MEDS: Epoetin Alfa epbx 10,000 UNITS/ML 15000 UNIT SC (16:12)
[2019-12-23 16:31] LABS: Albumin, Serum 2.6 g/dL (3.2-5.0); Anion Gap 7 (5-15); BUN 68 mg/dL (7-18); BUN/Creat Ratio 25.8 RATIO (10-20); Calcium,Total 8.2 mg/dL (8.5-10.1); Chloride 103 mmol/L (98-107); Creatinine, Serum 2.64 mg/dL (0.70-1.30); EST Glomerular Filtration Rate 26 mL/min (>60); Est Glom Filt Rate - Afr Amer 32 mL/min (>60); Estimated Creatinine Clearance 29.96 ml/min; Ferritin 204 ng/mL (26-388); Glucose 114 mg/dL (74-106); Iron 73 ug/dL (65-175); Iron Binding Capacity,Total 269 ug/dL (250-450); Phosphorus 5.2 mg/dL (2.5-4.9); Potassium 5.1 mmol/L (3.5-5.1); Sodium Level 135 mmol/L (136-145)
[2019-12-24 08:37] LABS: PTHIN 146.2 pg/mL (18.4-80.1)
== END ==
PROVIDERS: PCP Family Medicine; Referring Provider Internal Medicine Nephrology; Visit Provider Internal Medicine Nephrology
DX: N18.3 Chronic kidney disease, stage 3 (moderate) (principal); D63.1 Anemia in chronic kidney disease
CPT/HCPCS: 36415; 80048; 82040; 82728; 83540; 83550; 83970; 84100; 85014; 85018; 96372; Q5106

== ENCOUNTER → 2020-01-06 14:27 | Outpatient (CLI) | payer MEDICAID, SELFPAY ==
[2019-12-23 15:33] VITALS: BMI 26.9
[2020-01-06 14:43] VITALS: BP 175/88; PULSE 61; RESP 18; TEMP 36.6; O2SAT 94; BMI 27.5
[2020-01-06 14:55] LABS: Hematocrit 38.1 % (40-54); Hemoglobin 11.9 g/dL (13.0-16.5)
[2020-01-06] MEDS: Epoetin Alfa epbx 10,000 UNITS/ML 15000 UNIT SC (15:15)
[2020-01-06 22:51] LABS: Xtra Tube EP Lab EXTRA TUBE
== END ==
PROVIDERS: PCP Family Medicine; Referring Provider Internal Medicine Nephrology; Visit Provider Internal Medicine Nephrology
DX: N18.3 Chronic kidney disease, stage 3 (moderate) (principal); D63.1 Anemia in chronic kidney disease
CPT/HCPCS: 36415; 85014; 85018; 96372; Q5106

== ENCOUNTER → 2020-01-27 14:16 | Outpatient (CLI) | payer MEDICAID, SELFPAY ==
[2020-01-06 14:43] VITALS: BMI 27.5
[2020-01-27 14:31] VITALS: BP 169/69; PULSE 63; RESP 16; TEMP 36.6; O2SAT 96; BMI 25.8
[2020-01-27 14:42] LABS: Hematocrit 35.1 % (40-54); Hemoglobin 11.1 g/dL (13.0-16.5)
[2020-01-27] MEDS: Epoetin Alfa epbx 10,000 UNITS/ML 15000 UNIT SC (14:59)
[2020-01-27 15:00] LABS: Albumin, Serum 2.7 g/dL (3.2-5.0); Anion Gap 9 (5-15); BUN 75 mg/dL (7-18); BUN/Creat Ratio 25.5 RATIO (10-20); Calcium,Total 8.3 mg/dL (8.5-10.1); Chloride 107 mmol/L (98-107); Creatinine, Serum 2.94 mg/dL (0.70-1.30); EST Glomerular Filtration Rate 23 mL/min (>60); Est Glom Filt Rate - Afr Amer 28 mL/min (>60); Ferritin 260 ng/mL (26-388); Glucose 220 mg/dL (74-106); Iron 78 ug/dL (65-175); Iron Binding Capacity,Total 249 ug/dL (250-450); Phosphorus 5.2 mg/dL (2.5-4.9); Sodium Level 141 mmol/L (136-145)
== END ==
PROVIDERS: PCP Family Medicine; Referring Provider Internal Medicine Nephrology; Visit Provider Internal Medicine Nephrology
DX: N18.3 Chronic kidney disease, stage 3 (moderate) (principal); D63.1 Anemia in chronic kidney disease
CPT/HCPCS: 36415; 80048; 82040; 82728; 83540; 83550; 83970; 84100; 85014; 85018; 96372; Q5106

== ENCOUNTER → 2020-02-17 14:31 | Outpatient (CLI) | payer MEDICAID, SELFPAY ==
[2020-01-27 14:31] VITALS: BMI 25.8
[2020-02-17 14:53] LABS: Hematocrit 34.7 % (40-54); Hemoglobin 10.9 g/dL (13.0-16.5)
[2020-02-17 15:00] VITALS: BP 198/86; PULSE 59; RESP 16; TEMP 36.5; O2SAT 98; BMI 25.8
== END ==
PROVIDERS: PCP Family Medicine; Referring Provider Internal Medicine Nephrology; Visit Provider Internal Medicine Nephrology
DX: N18.3 Chronic kidney disease, stage 3 (moderate) (principal); D63.1 Anemia in chronic kidney disease
CPT/HCPCS: 36415; 85014; 85018; Q5106

== ENCOUNTER → 2020-02-19 15:24 | Outpatient (CLI) | payer MEDICAID, SELFPAY ==
[2020-01-27 14:31] VITALS: BMI 25.8
[2020-02-17 15:00] VITALS: BMI 25.8
--- NOTE | 2020-02-19 15:26 | MRI_ITS ---
STUDY: MRI BRAIN WITHOUT CONTRAST (ATTENTION INTERNAL AUDITORY CANALS - I.A.C.''s) REASON FOR EXAM: Male, 64 years old. Bilat hearing loss. Non-contrast d/t impaired renal function TECHNIQUE: Standardized multiplanar fat and water weighted pulse sequences were obtained. COMPARISON: Head CT 03/21/2019 FINDINGS: Normal bilateral internal auditory canals. There is no demonstrated intracanalicular or cisternal vestibular schwannoma (acoustic neuroma) on this unenhanced examination. Normal visualized bilateral cochlea, vestibules and semicircular canals. Normal bilateral mastoid air cells. Normal midbrain, xiang and medulla. Normal cerebellum. Normal basal cisterns. Normal size of the ventricles and extra-axial spaces for the patient''s age. There are a limited number of small white matter hyperintensities, distributed throughout the deep white matter tracts of the cerebral hemispheres, consistent with mild chronic white matter ischemic changes. Normal bilateral basal ganglia. Normal thalami. There is no extra-axial fluid accumulation. Normal flow voids within the major intracranial circulation suggesting patency by spin echo criteria. Normal sella turcica, pituitary gland, infundibular stalk, optic chiasm and hypothalamus. Normal tectal plate and pineal gland. No demonstrated orbital abnormality, within the constraints of a routine brain study. Normal visualized paranasal sinuses. Normal calvarium and skull base. Normal visualized soft tissue structures. MRI/Brain without Contrast IMPRESSION: Normal unenhanced MRI of the bilateral internal auditory canals (I.A.C''s). Mild microangiopathic White matter disease. Electronically Signed: Blade Baugh MD at 17:34 EDT Tel , Service support ,
== END ==
PROVIDERS: PCP Family Medicine; Referring Provider Otolaryngology; Visit Provider Otolaryngology
DX: H91.91 Unspecified hearing loss, right ear (principal)
CPT/HCPCS: 70551

== ENCOUNTER → 2020-03-09 14:20 | Outpatient (CLI) | payer MEDICAID, SELFPAY ==
[2020-02-17 15:00] VITALS: BMI 25.8
[2020-03-09 14:45] LABS: Hemoglobin 9.1 g/dL (13.0-16.5)
[2020-03-09 15:00] LABS: PTHIN 180.9 pg/mL (18.4-80.1)
[2020-03-09 15:06] VITALS: BP 177/74; PULSE 65; RESP 16; TEMP 36.4; O2SAT 95; BMI 25.8
[2020-03-09] MEDS: Epoetin Alfa epbx 10,000 UNITS/ML 15000 UNIT SC (15:11)
[2020-03-09 15:16] LABS: Albumin, Serum 2.7 g/dL (3.2-5.0); Anion Gap 6 (5-15); BUN 63 mg/dL (7-18); Calcium,Total 7.9 mg/dL (8.5-10.1); Chloride 103 mmol/L (98-107); EST Glomerular Filtration Rate 23 mL/min (>60); Est Glom Filt Rate - Afr Amer 27 mL/min (>60); Estimated Creatinine Clearance 26.36 ml/min; Ferritin 278 ng/mL (26-388); Glucose 188 mg/dL (74-106); Iron 57 ug/dL (65-175); Iron Binding Capacity,Total 261 ug/dL (250-450); Phosphorus 4.4 mg/dL (2.5-4.9); Potassium 4.9 mmol/L (3.5-5.1); Sodium Level 135 mmol/L (136-145)
[2020-03-09 15:20] VITALS: BP 177/74; PULSE 65; RESP 16; TEMP 36.4; O2SAT 95
== END ==
PROVIDERS: PCP Family Medicine; Referring Provider Internal Medicine Nephrology; Visit Provider Internal Medicine Nephrology
DX: N18.3 Chronic kidney disease, stage 3 (moderate) (principal); D63.1 Anemia in chronic kidney disease
CPT/HCPCS: 36415; 80048; 82040; 82728; 83540; 83550; 83970; 84100; 85014; 85018; 96372; Q5106

== ENCOUNTER → 2020-03-30 15:20 | Outpatient (CLI) | payer MEDICAID, SELFPAY ==
[2020-03-09 15:06] VITALS: BMI 25.8
[2020-03-30 15:35] VITALS: BP 168/80; PULSE 60; RESP 16; TEMP 36.2; O2SAT 95; BMI 25.8
[2020-03-30 15:57] LABS: Hematocrit 29.1 % (40-54); Hemoglobin 9.4 g/dL (13.0-16.5)
[2020-03-30 16:14] LABS: Anion Gap 4 (5-15); BUN 90 mg/dL (7-18); BUN/Creat Ratio 26.9 RATIO (10-20); Calcium,Total 8.2 mg/dL (8.5-10.1); Chloride 107 mmol/L (98-107); Creatinine, Serum 3.34 mg/dL (0.70-1.30); EST Glomerular Filtration Rate 20 mL/min (>60); Est Glom Filt Rate - Afr Amer 24 mL/min (>60); Estimated Creatinine Clearance 23.68 ml/min; Ferritin 251 ng/mL (26-388); Glucose 153 mg/dL (74-106); Iron 76 ug/dL (65-175); Iron Binding Capacity,Total 265 ug/dL (250-450); PERCENT IRON SATURATION 28.7 % (15.0-55.0); Phosphorus 5.4 mg/dL (2.5-4.9); Potassium 4.6 mmol/L (3.5-5.1); Sodium Level 139 mmol/L (136-145)
[2020-03-30] MEDS: Epoetin Alfa epbx 10,000 UNITS/ML 15000 UNIT SC (16:14)
[2020-03-31 08:16] LABS: PTHIN 144.6 pg/mL (18.4-80.1)
== END ==
PROVIDERS: PCP Family Medicine; Visit Provider Internal Medicine Nephrology
DX: N18.3 Chronic kidney disease, stage 3 (moderate) (principal); D63.1 Anemia in chronic kidney disease
CPT/HCPCS: 36415; 80048; 82040; 82728; 83540; 83550; 83970; 84100; 85014; 85018; 96372; Q5106

== ENCOUNTER → 2020-04-20 15:16 | Outpatient (CLI) | payer MEDICAID, SELFPAY ==
[2020-03-30 15:35] VITALS: BMI 25.8
[2020-04-20 15:55] LABS: Hematocrit 31.9 % (40-54); Hemoglobin 10.1 g/dL (13.0-16.5)
[2020-04-20 16:20] VITALS: BP 162/92; PULSE 61; RESP 16; O2SAT 97; BMI 25.8
[2020-04-20] MEDS: Epoetin Alfa epbx 10,000 UNITS/ML 15000 UNIT SC (16:23)
[2020-04-20 16:27] VITALS: BP 162/92; PULSE 61; RESP 16; O2SAT 97
[2020-04-20 23:52] LABS: Xtra Tube EP Lab EXTRA TUBE
== END ==
PROVIDERS: PCP Family Medicine; Referring Provider Internal Medicine Nephrology; Visit Provider Internal Medicine Nephrology
DX: N18.3 Chronic kidney disease, stage 3 (moderate) (principal); D63.1 Anemia in chronic kidney disease
CPT/HCPCS: 36415; 80048; 82040; 82728; 83540; 83550; 83970; 84100; 85014; 85018; 96372; Q5106

== ENCOUNTER → 2020-05-11 14:23 | Outpatient (CLI) | payer MEDICAID, SELFPAY ==
[2020-04-20 16:20] VITALS: BMI 25.8
[2020-05-11 15:00] VITALS: BP 149/70; PULSE 60; RESP 16; TEMP 36.1; O2SAT 96; BMI 25.8
[2020-05-11 15:08] LABS: Hematocrit 31.5 % (40-54); Hemoglobin 9.8 g/dL (13.0-16.5)
[2020-05-11 15:26] LABS: Albumin, Serum 2.9 g/dL (3.2-5.0); Anion Gap 3 (5-15); BUN 62 mg/dL (7-18); BUN/Creat Ratio 20.2 RATIO (10-20); Calcium,Total 8.2 mg/dL (8.5-10.1); Chloride 107 mmol/L (98-107); Creatinine, Serum 3.07 mg/dL (0.70-1.30); EST Glomerular Filtration Rate 22 mL/min (>60); Est Glom Filt Rate - Afr Amer 27 mL/min (>60); Ferritin 225 ng/mL (26-388); Glucose 184 mg/dL (74-106); Iron 65 ug/dL (65-175); Phosphorus 4.1 mg/dL (2.5-4.9); Potassium 5.3 mmol/L (3.5-5.1); Sodium Level 138 mmol/L (136-145)
[2020-05-11] MEDS: Epoetin Alfa epbx 10,000 UNITS/ML 15000 UNIT SC (15:28)
== END ==
PROVIDERS: PCP Family Medicine; Referring Provider Internal Medicine Nephrology; Visit Provider Internal Medicine Nephrology
DX: N18.3 Chronic kidney disease, stage 3 (moderate) (principal); D63.1 Anemia in chronic kidney disease
CPT/HCPCS: 36415; 80048; 82040; 82728; 83540; 83970; 84100; 85014; 85018; 96372; Q5106

== ENCOUNTER → 2020-05-12 08:17 | Outpatient (CLI) | payer MEDICAID, SELFPAY ==
[2020-05-11 15:00] VITALS: BMI 25.8
[2020-05-12 09:40] LABS: Color, Urine Yellow (Yellow); Glucose, Dipstick 100 mg/dl (Normal); Ketone-Dipstick Negative (Negative); Leukocyte Esterase-Dipstick Negative /ul (Negative); Nitrite-Dipstick Negative (Negative); Occult Blood-Urine Negative /ul (Negative); Protein-Dipstick 500 mg/dl (Negative); Urine Bilirubin Dipstick Negative (Negative); Urine Clarity Clear (Clear); Urine Urobilinogen Normal (Normal); Urine pH 6.5 (5.0 - 8.0)
[2020-05-12 09:43] LABS: Hematocrit 31.7 % (40-54); Hemoglobin 9.7 g/dL (13.0-16.5); Mean Corp Hgb Conc 30.6 g/dL (32-36); Mean Corpuscular Volume 98.1 fL (80-94); Mean Platelet Vol. 10.7 fl (6.2-12.0); Platelet Count 229 K/mm3 (150-450); RBC Distribution Width CV 14.4 % (11.6-14.6); Red Blood Count 3.23 M/mm3 (4.6-6.2); White Blood Count 6.6 K/mm3 (4.4-11.0)
[2020-05-12 10:28] LABS: Protein, Urine (Random) 354.8 mg/dL (<11.9); Protein:Creat Ratio 5570 mg/g CRE (0-200)
[2020-05-12 10:31] LABS: Albumin, Serum 2.9 g/dL (3.2-5.0); BUN 62 mg/dL (7-18); BUN/Creat Ratio 18.7 RATIO (10-20); Calcium,Total 8.5 mg/dL (8.5-10.1); Chloride 105 mmol/L (98-107); Creatinine, Serum 3.32 mg/dL (0.70-1.30); EST Glomerular Filtration Rate 20 mL/min (>60); Est Glom Filt Rate - Afr Amer 24 mL/min (>60); Glucose 178 mg/dL (74-106); Phosphorus 4.2 mg/dL (2.5-4.9); Sodium Level 138 mmol/L (136-145)
== END ==
PROVIDERS: PCP Family Medicine; Referring Provider Internal Medicine Nephrology; Visit Provider Internal Medicine Nephrology
DX: R80.9 Proteinuria, unspecified (principal); I12.9 Hypertensive chronic kidney disease with stage 1 through stage 4 chronic kidney disease, or unspecified chronic kidney disease; N18.9 Chronic kidney disease, unspecified
CPT/HCPCS: 36415; 80069; 81002; 82043; 82306; 82570; 83970; 84156; 85027

== ENCOUNTER 2020-05-24 14:00 | Outpatient (RCR) | payer MEDICAID, SELFPAY ==
[2020-03-09 15:06] VITALS: BMI 25.8
--- NOTE | 2020-03-18 12:01 | HP.PTEVAL ---
Patient's Visit Information SHARON QUINONES is a 64 year old M referred to Physical Therapy by Dr. Will Peguero DO with a diagnosis of Right Hip Pain. Date of Evaluation: 03/18/20 Physical Therapist: Vandana Hoffman DPT - Visit Plan Frequency: 2-3x /Week Duration: 4 Weeks Plan: Focus on LE and core stregth/stabilization - Subjective Right THR by Dr. Peguero Jun 2018- he had broken hip 10 years prior- had a minesh from his hip to his TKR. They had to work really hard to get the hardware out. Last year he was mowing on the tractor- ended up at the hospital for his neck- [place] for IV antibiotics UTI- has been a major setback to laying flat. Finally got the combo correct for meds. Is now having problems in his right hip- He had an injections which is making him much better. Diagnosed with burstitis- Sunday had the injection- feels the injection made him 70 percent better. Pain is located on the outside of the hip. Agg: sleeping or sit for to long. Worst: 8/10 Best: 4/10. Eases: stay off of a hard surface setting. Describes the pain as dull and achy. No radiating pain to the leg or back. No N/T in the LE. Does have some pain in the left hip- at some point he will need a hip replacement but not going there right now. He also has ankylosing spondylitis. Right TKR and THR- no other replacements. Has used a cane since THR- uses it all the time. Has not had any falls. Fully I with all ADL's- does have adaptive equiptment. Can drive himself but does not always drive. Lives with - ranch style home- 2 steps in with handrail. Sleep: right side- does keep him awake at night. PMHX: ankylosis spondylitits, renal failure, TKR, THR, [place] February 2017, [place] 2017 Triple Bypass, [place] Meds: carvediloo, atorvastatin, asprin, bumetanide, doxazosin, hydralazine, finasteride, metrolazone, levemir, calcitriol, centrum, cialis, latanoprost. - Objective Posture: FH, RS- can correct but does not maintain. Gait: antalgic- decreased stance on the left LE with poor heel/toe pattern and hip drop. Stairs: non recip with 2 HR or single rail and cane. HR/TR: able with UE A. SLS: 15 sec then LOB. ROM: WFL in all planes lumbar, hip, ankle, knee. Strength: Core: fair minus, Hip: 4-/5 throughout, Knee: extn: 4+/5, Flexion: 4/5, Ankle: 4+/5. Flex: HS: moderate, Gastroc: moderate. Sensation: WNL to gross touch bilateral LE. Reflexes: not tested - Goals Goal 1:: Patient will be I with HEP and progression Goal Time Frame: 4-6 Weeks Goal 2:: Patient will ambulate <300 feet with a normalized gait pattern and LRD Goal Time Frame: 4-6 Weeks Goal 3:: Patient will asc/desc 8 stairs recip with 1 HR Goal Time Frame: 4-6 Weeks Goal 4:: Patient will report 0/10 pain for 1 week sleeping through the night Goal Time Frame: 4-6 Weeks - Rehabilitation Potential Physical Therapy Diagnosis: Patient presents with hypomobility- he has decreased strength, flex and muscular endurance leading to abnormal gait pattern and inability to perform pain free ADL's. Rehabilitation Potential: Fair - Anticipated Interventions Patient/Client Instruction: Educate patient on: Benefits of Fitness Program Therapeutic Exercise to Include: Strength training, Endurance training, Balance training, Agility training, Body mechanics, Postural training, Flexibilty training, Gait and locomotor training, Neuromotor development, Passive ROM, Active ROM, Dynamic Lumbar Stabilization, Scapular Strength/Stabilization For the Purpose of:: To improve muscle performance and motor function Functional Training to Include: Gait training TENS: Yes Cryotherapy (ice pack, ice massage): Yes Thermo therapy (hot pack): Yes Ultrasound (thermal/non thermal): No Thank you for the opportunity to evaluate your patient. For Medicare and Medicare HMO plans, please review the plan of care and approve it. It will need to be FAXED BACK to us at [phone] for Medicare purposes. For Medicare only, by signing this I certify the plan of care. Please let me know if there are questions or concerns regarding this plan of care. Physician Signature: Date:
--- NOTE | 2020-04-26 15:41 | HP.PTREVAL ---
Dr. Will Peguero, DO, It has been my pleasure to treat SHARON QUINONES over the last 10 visits for Right Hip Pain/Bursitis - THR in 2018. Please see the progress note below for an update on the physical therapy plan of care! Subjective: Patient reports that some days its good and other its not. Not sure what makes a good day vs. bad day. It aches a lot and its harder to move. Red feels that he is 50% better since surgery. He wants to be able to move better. Had a bad UTI and was in the hospital a long time and has walked with a cane since then. Patient would like to continue with therapy. Objective/Function: Posture: FH, RS- can correct but does not maintain. Gait: antalgic- decreased stance on the left LE with poor heel/toe pattern and hip drop. Stairs:reciprocal pattern- with circumduction of the right LE. poor control with descent HR/TR: able with UE A. SLS: 15 sec then LOB. ROM: WFL in all planes lumbar, hip, ankle, knee. Strength: Core: fair minus, Hip: 4/5 throughout, Knee: extn: 4+/5, Flexion: 4+/5, Ankle: 4+/5. Flex: HS: moderate, Gastroc: moderate. Sensation: WNL to gross touch bilateral LE. Reflexes: not tested Plan Plan: Continue 2x a week for 4 weeks- (no leg press as pt feels it flares his back)Focus on LE and core stregth/stabilization Goals Goal 1:: Patient will be I with HEP and progression Goal Time Frame: 4-6 Weeks Goal Progress: Progressing Goal 2:: Patient will ambulate <300 feet with a normalized gait pattern and LRD Goal Time Frame: 4-6 Weeks Goal Progress: Progressing Goal 3:: Patient will asc/desc 8 stairs recip with 1 HR Goal Time Frame: 4-6 Weeks Goal Progress: Progressing Goal 4:: Patient will report 0/10 pain for 1 week sleeping through the night Goal Time Frame: 4-6 Weeks Goal Progress: Progressing Anticipated Interventions Patient/Client Instruction: Educate patient on: Benefits of Fitness Program Therapeutic Exercise to Include: Strength training, Endurance training, Balance training, Agility training, Body mechanics, Postural training, Flexibilty training, Gait and locomotor training, Neuromotor development, Passive ROM, Active ROM, Dynamic Lumbar Stabilization, Scapular Strength/Stabilization For the Purpose of:: To improve muscle performance and motor function Functional Training to Include: Gait training TENS: Yes Cryotherapy (ice pack, ice massage): Yes Thermo therapy (hot pack): Yes Ultrasound (thermal/non thermal): No Please do not hesitate to contact me at [phone] by phone or if you have questions or concerns regarding this new plan of care! Sincerely, FERNANDO FunkT
--- NOTE | 2020-05-24 14:29 | HP.PTREVAL ---
Dr. Will Peguero, DO, It has been my pleasure to treat SHARON QUINONES over the last 17 visits for Right Hip Pain/Bursitis - THR in 2018. Please see the progress note below for an update on the physical therapy plan of care! Subjective: Patient reports that the hip pain is up and down ranges 3-5/10. If he lifts something heavy then its more of a 5/10. Feels that he is 60% better since starting PT. wants to walk better and get his balance better. There are no ADLs that he is unable to perform. Objective/Function: Posture: FH, RS- can correct but does not maintain. Gait: slightly antalgic- decreased stance on the left LE with poor heel/toe pattern. Stairs: recip with 2 Hr for ascent by single for desc HR/TR: able with UE A. SLS: 20 sec then LOB. ROM: WFL in all planes lumbar, hip, ankle, knee. Strength: Core: fair , Hip: 4+/5 throughout, Knee: extn:5/5, Flexion: 4+/5, Ankle: 5/5. Flex: HS: moderate, Gastroc: moderate. Sensation: WNL to gross touch bilateral LE. Reflexes: not tested Plan Plan: Hold- patient to have eye surgery. Goals Goal 1:: Patient will be I with HEP and progression Goal Time Frame: 4-6 Weeks Goal Progress: Progressing Goal 2:: Patient will ambulate <300 feet with a normalized gait pattern and LRD Goal Time Frame: 4-6 Weeks Goal Progress: Progressing Goal 3:: Patient will asc/desc 8 stairs recip with 1 HR Goal Time Frame: 4-6 Weeks Goal Progress: Progressing Goal 4:: Patient will report 0/10 pain for 1 week sleeping through the night Goal Time Frame: 4-6 Weeks Goal Progress: Progressing Anticipated Interventions Patient/Client Instruction: Educate patient on: Benefits of Fitness Program Therapeutic Exercise to Include: Strength training, Endurance training, Balance training, Agility training, Body mechanics, Postural training, Flexibilty training, Gait and locomotor training, Neuromotor development, Passive ROM, Active ROM, Dynamic Lumbar Stabilization, Scapular Strength/Stabilization For the Purpose of:: To improve muscle performance and motor function Functional Training to Include: Gait training TENS: Yes Cryotherapy (ice pack, ice massage): Yes Thermo therapy (hot pack): Yes Ultrasound (thermal/non thermal): No Please do not hesitate to contact me at [phone] by phone or if you have questions or concerns regarding this new plan of care! Sincerely, FERNANDO FunkT
--- NOTE | 2020-08-05 11:28 | HP.PT.NRP ---
SHARON QUINONES was seen in my office for initial evaluation on 03/18/20. The following Plan of Care was established for this patient: Initial Frequency: 2-3x /Week Initial Duration: 4 Weeks Patient/Client Instruction: Educate patient on: Benefits of Fitness Program Therapeutic Exercise to Include: Strength training, Endurance training, Balance training, Agility training, Body mechanics, Postural training, Flexibilty training, Gait and locomotor training, Neuromotor development, Passive ROM, Active ROM, Dynamic Lumbar Stabilization, Scapular Strength/Stabilization For the Purpose of:: To improve muscle performance and motor function Functional Training to Include: Gait training TENS: Yes Cryotherapy (ice pack, ice massage): Yes Thermo therapy (hot pack): Yes Ultrasound (thermal/non thermal): No This patient was last seen in our office . Pertinent comments regarding their Physical therapy will appear below: At this point I will be discontinuing this patient from physical therapy. I would be happy to see this patient again in the future if found appropriate by the physician. Thank you! Vandana Hoffman DPT
== END 2020-05-24 19:00 | disposition home or self-care (01) ==
LOC: PT 14:00
PROVIDERS: PCP Family Medicine; Referring Provider Orthopaedic Surgery; Visit Provider Orthopaedic Surgery
DX: M70.61 Trochanteric bursitis, right hip (principal); M16.11 Unilateral primary osteoarthritis, right hip; Z96.641 Presence of right artificial hip joint
CPT/HCPCS: 97110; 97161; 97164

== ENCOUNTER → 2020-05-25 14:30 | Outpatient (CLI) | payer MEDICAID, SELFPAY ==
[2020-04-20 16:20] VITALS: BMI 25.8
[2020-05-11 15:00] VITALS: BMI 25.8
[2020-05-25 15:19] LABS: Hematocrit 30.7 % (40-54); Hemoglobin 9.6 g/dL (13.0-16.5)
[2020-05-25 15:30] VITALS: BP 145/75; PULSE 61; RESP 16; TEMP 36.6; O2SAT 95; BMI 25.8
[2020-05-25] MEDS: Epoetin Alfa epbx 10,000 UNITS/ML 15000 UNIT SC (15:43)
[2020-05-25 23:11] LABS: Xtra Tube EP Lab EXTRA TUBE
== END ==
PROVIDERS: PCP Family Medicine; Referring Provider Internal Medicine Nephrology; Visit Provider Internal Medicine Nephrology
DX: N18.3 Chronic kidney disease, stage 3 (moderate) (principal); D63.1 Anemia in chronic kidney disease
CPT/HCPCS: 36415; 85014; 85018; 96372; Q5106

== ENCOUNTER → 2020-06-08 14:19 | Outpatient (CLI) | payer MEDICAID, SELFPAY ==
[2020-05-25 15:30] VITALS: BMI 25.8
[2020-06-04 08:08] VITALS: BMI 28.3
[2020-06-08 14:40] VITALS: BP 194/83; PULSE 55; RESP 16; TEMP 36.3; O2SAT 95; BMI 26.5
[2020-06-08 14:53] LABS: Hematocrit 30.5 % (40-54); Hemoglobin 9.4 g/dL (13.0-16.5); Mean Corp Hgb Conc 30.8 g/dL (32-36); Mean Corpuscular Volume 97.4 fL (80-94); Mean Platelet Vol. 9.8 fl (6.2-12.0); Platelet Count 193 K/mm3 (150-450); RBC Distribution Width CV 14.6 % (11.6-14.6); RBC Distribution Width SD 51.7 fl (35.1-43.9); Red Blood Count 3.13 M/mm3 (4.6-6.2); White Blood Count 6.1 K/mm3 (4.4-11.0)
[2020-06-08 15:08] LABS: PTHIN 214.2 pg/mL (18.4-80.1)
[2020-06-08 15:13] LABS: BUN 95 mg/dL (7-18); BUN/Creat Ratio 29.1 RATIO (10-20); Calcium,Total 8.4 mg/dL (8.5-10.1); Chloride 106 mmol/L (98-107); Creatinine, Serum 3.26 mg/dL (0.70-1.30); EST Glomerular Filtration Rate 21 mL/min (>60); Est Glom Filt Rate - Afr Amer 25 mL/min (>60); Estimated Creatinine Clearance 24.26 ml/min; Ferritin 161 ng/mL (26-388); Glucose 116 mg/dL (74-106); Iron 47 ug/dL (65-175); Iron Binding Capacity,Total 287 ug/dL (250-450); PSA,Total- Diagnostic 0.24 ng/mL (0.0-4.0); Phosphorus 5.4 mg/dL (2.5-4.9); Potassium 4.7 mmol/L (3.5-5.1); Sodium Level 138 mmol/L (136-145); Vitamin D,25 Hydroxy 27.4 ng/mL
[2020-06-08 15:15] LABS: Color, Urine Yellow (Yellow); Glucose, Dipstick Normal (Normal); Ketone-Dipstick Negative (Negative); Leukocyte Esterase-Dipstick Negative /ul (Negative); Nitrite-Dipstick Negative (Negative); Occult Blood-Urine Negative /ul (Negative); Protein-Dipstick 100 mg/dl (Negative); Specific Gravity, Urine 1.015 (1.002-1.030); Urine Bilirubin Dipstick Negative (Negative); Urine Clarity Sl. Cloudy (Clear); Urine Urobilinogen Normal (Normal)
[2020-06-08 15:19] VITALS: BP 178/74
[2020-06-08] MEDS: Epoetin Alfa epbx 10,000 UNITS/ML 15000 UNIT SC (15:21)
[2020-06-08 16:19] LABS: Protein, Urine (Random) 204.4 mg/dL (<11.9); Protein:Creat Ratio 6157 mg/g CRE (0-200)
== END ==
PROVIDERS: PCP Family Medicine; Referring Provider Internal Medicine Nephrology; Visit Provider Internal Medicine Nephrology
DX: N18.30 Chronic kidney disease, stage 3 unspecified (principal); D63.1 Anemia in chronic kidney disease; Z12.5 Encounter for screening for malignant neoplasm of prostate
CPT/HCPCS: 36415; 80069; 81002; 82043; 82306; 82570; 82728; 83540; 83550; 83970; 84153; 84156; 85027; 96372; Q5106

== ENCOUNTER → 2020-06-15 14:20 | Outpatient (CLI) | payer MEDICAID, SELFPAY ==
[2020-06-08 14:40] VITALS: BMI 26.5
[2020-06-15 13:50] VITALS: BP 177/79; PULSE 58
[2020-06-15 14:56] LABS: Hematocrit 31.8 % (40-54); Hemoglobin 9.8 g/dL (13.0-16.5)
[2020-06-15 15:13] VITALS: BP 186/79; PULSE 57; RESP 16; TEMP 36.2; O2SAT 93; BMI 27.2
[2020-06-15] MEDS: Epoetin Alfa epbx 10,000 UNITS/ML 15000 UNIT SC (16:03)
== END ==
PROVIDERS: PCP Family Medicine; Referring Provider Internal Medicine Nephrology; Visit Provider Internal Medicine Nephrology
DX: N18.30 Chronic kidney disease, stage 3 unspecified (principal); D63.1 Anemia in chronic kidney disease
CPT/HCPCS: 36415; 85014; 85018; 96372; Q5106

== ENCOUNTER → 2020-06-22 14:26 | Outpatient (CLI) | payer MEDICAID, SELFPAY ==
[2020-06-15 15:13] VITALS: BMI 27.2
[2020-06-22 14:32] VITALS: BP 133/63; PULSE 60; RESP 18; O2SAT 94; BMI 27.2
[2020-06-22] MEDS: Epoetin Alfa epbx 10,000 UNITS/ML 15000 UNIT SC (14:53)
== END ==
PROVIDERS: PCP Family Medicine; Referring Provider Internal Medicine Nephrology; Visit Provider Internal Medicine Nephrology
DX: N18.30 Chronic kidney disease, stage 3 unspecified (principal); D63.1 Anemia in chronic kidney disease
CPT/HCPCS: 96372; Q5106

== ENCOUNTER → 2020-06-29 14:20 | Outpatient (CLI) | payer MEDICAID, SELFPAY ==
[2020-06-22 14:32] VITALS: BMI 27.2
[2020-06-29 14:26] VITALS: BP 188/78; PULSE 60; RESP 18; TEMP 35.7; O2SAT 93; BMI 26.9
[2020-06-29 14:39] LABS: Hematocrit 34.7 % (40-54); Hemoglobin 10.8 g/dL (13.0-16.5)
[2020-06-29] MEDS: Epoetin Alfa epbx 10,000 UNITS/ML 15000 UNIT SC (15:01)
== END ==
PROVIDERS: PCP Family Medicine; Referring Provider Internal Medicine Nephrology; Visit Provider Internal Medicine Nephrology
DX: N18.30 Chronic kidney disease, stage 3 unspecified (principal); D63.1 Anemia in chronic kidney disease
CPT/HCPCS: 36415; 85014; 85018; 96372; Q5106

== ENCOUNTER → 2020-07-07 12:20 | Outpatient (CLI) | payer MEDICAID, SELFPAY ==
[2020-06-29 14:26] VITALS: BMI 26.9
[2020-07-07 12:33] VITALS: BP 182/81; PULSE 57; RESP 16; TEMP 36.4; O2SAT 95; BMI 26.9
== END ==
PROVIDERS: PCP Family Medicine; Referring Provider Internal Medicine Nephrology; Visit Provider Internal Medicine Nephrology
DX: N18.30 Chronic kidney disease, stage 3 unspecified (principal); D63.1 Anemia in chronic kidney disease

== ENCOUNTER → 2020-07-13 14:25 | Outpatient (CLI) | payer MEDICAID, SELFPAY ==
[2020-07-07 12:33] VITALS: BMI 26.9
[2020-07-13 15:04] VITALS: BP 178/82; PULSE 55; RESP 16; TEMP 36.9; O2SAT 95; BMI 26.9
[2020-07-13 15:04] LABS: Hematocrit 34.5 % (40-54); Hemoglobin 10.7 g/dL (13.0-16.5)
[2020-07-13] MEDS: Epoetin Alfa epbx 10,000 UNITS/ML 15000 UNIT SC (15:26)
[2020-07-13 23:02] LABS: Xtra Tube EP Lab EXTRA TUBE
== END ==
PROVIDERS: PCP Family Medicine; Referring Provider Internal Medicine Nephrology; Visit Provider Internal Medicine Nephrology
DX: N18.30 Chronic kidney disease, stage 3 unspecified (principal); D63.1 Anemia in chronic kidney disease
CPT/HCPCS: 36415; 85014; 85018; 96372; Q5106

== ENCOUNTER → 2020-07-20 14:22 | Outpatient (CLI) | payer MEDICAID, SELFPAY ==
[2020-07-13 15:04] VITALS: BMI 26.9
[2020-07-20 14:33] VITALS: BP 182/77; PULSE 55; RESP 16; TEMP 36.1; O2SAT 95; BMI 26.5
[2020-07-20 14:51] VITALS: BP 179/81; PULSE 56; RESP 16
[2020-07-20] MEDS: Epoetin Alfa epbx 10,000 UNITS/ML 15000 UNIT SC (15:13)
== END ==
PROVIDERS: PCP Family Medicine; Referring Provider Internal Medicine Nephrology; Visit Provider Internal Medicine Nephrology
DX: N18.30 Chronic kidney disease, stage 3 unspecified (principal); D64.9 Anemia, unspecified
CPT/HCPCS: 96372; Q5106

== ENCOUNTER → 2020-07-28 14:19 | Outpatient (CLI) | payer MEDICAID, SELFPAY ==
[2020-07-20 14:33] VITALS: BMI 26.5
[2020-07-28 14:44] VITALS: BP 144/62; PULSE 63; RESP 16; TEMP 36.1; O2SAT 95; BMI 26.5
[2020-07-28 15:17] LABS: Hematocrit 35.5 % (40-54); Hemoglobin 10.8 g/dL (13.0-16.5)
[2020-07-28 15:24] LABS: Anion Gap 7 (5-15); BUN 87 mg/dL (7-18); BUN/Creat Ratio 22.7 RATIO (10-20); Calcium,Total 8.5 mg/dL (8.5-10.1); Chloride 103 mmol/L (98-107); Creatinine, Serum 3.84 mg/dL (0.70-1.30); EST Glomerular Filtration Rate 17 mL/min (>60); Est Glom Filt Rate - Afr Amer 21 mL/min (>60); Estimated Creatinine Clearance 20.59 ml/min; Ferritin 68 ng/mL (26-388); Glucose 148 mg/dL (74-106); Iron 44 ug/dL (65-175); Iron Binding Capacity,Total 287 ug/dL (250-450); Phosphorus 6.5 mg/dL (2.5-4.9); Potassium 4.7 mmol/L (3.5-5.1); Sodium Level 137 mmol/L (136-145)
[2020-07-28] MEDS: Epoetin Alfa epbx 10,000 UNITS/ML 17500 UNIT SC (15:36)
[2020-07-29 08:02] LABS: PTHIN 133.6 pg/mL (18.4-80.1)
[2020-11-10 14:38] LABS: Hematocrit 37.5 % (40-54); Hemoglobin 11.3 g/dL (13.0-16.5)
[2020-11-10 14:58] LABS: PTHIN 144.6 pg/mL (18.4-80.1)
[2020-11-10 15:01] LABS: Albumin, Serum 3.3 g/dL (3.2-5.0); Anion Gap 4 (5-15); BUN 34 mg/dL (7-18); Calcium,Total 8.8 mg/dL (8.5-10.1); Chloride 99 mmol/L (98-107); Creatinine, Serum 3.41 mg/dL (0.70-1.30); EST Glomerular Filtration Rate 20 mL/min (>60); Est Glom Filt Rate - Afr Amer 24 mL/min (>60); Estimated Creatinine Clearance 22.89 ml/min; Ferritin 196 ng/mL (26-388); Glucose 171 mg/dL (74-106); Iron 45 ug/dL (65-175); Iron Binding Capacity,Total 291 ug/dL (250-450); Potassium 4.2 mmol/L (3.5-5.1); Sodium Level 136 mmol/L (136-145)
[2020-11-10 22:35] LABS: Xtra Tube EP Lab EXTRA TUBE
== END ==
PROVIDERS: PCP Family Medicine; Referring Provider Internal Medicine Nephrology; Visit Provider Internal Medicine Nephrology
DX: N18.30 Chronic kidney disease, stage 3 unspecified (principal); D63.1 Anemia in chronic kidney disease
CPT/HCPCS: 36415; 80048; 82040; 82728; 83540; 83550; 83970; 84100; 85014; 85018; 96372; Q5106

== ENCOUNTER → 2020-08-04 14:23 | Outpatient (CLI) | payer MEDICAID, SELFPAY ==
[2020-07-28 14:44] VITALS: BMI 26.5
[2020-08-02 13:43] VITALS: BMI 28.7
[2020-08-04 15:12] LABS: Hematocrit 35.1 % (40-54); Hemoglobin 10.6 g/dL (13.0-16.5)
[2020-08-04 23:09] LABS: Xtra Tube EP Lab EXTRA TUBE
== END ==
PROVIDERS: PCP Family Medicine; Referring Provider Internal Medicine Nephrology; Visit Provider Internal Medicine Nephrology
DX: N18.30 Chronic kidney disease, stage 3 unspecified (principal); D63.1 Anemia in chronic kidney disease
CPT/HCPCS: 36415; 85014; 85018

== ENCOUNTER → 2020-08-12 14:44 | Outpatient (CLI) | payer MEDICAID, SELFPAY ==
[2020-08-02 13:43] VITALS: BMI 28.7
[2020-08-12 14:51] VITALS: BP 168/74; PULSE 54; RESP 18; TEMP 35.7; O2SAT 93; BMI 28.7
[2020-08-12] MEDS: Epoetin Alfa epbx 10,000 UNITS/ML 17500 UNIT SC (15:19)
== END ==
PROVIDERS: PCP Family Medicine; Referring Provider Internal Medicine Nephrology; Visit Provider Internal Medicine Nephrology
DX: N18.30 Chronic kidney disease, stage 3 unspecified (principal); D63.1 Anemia in chronic kidney disease
CPT/HCPCS: 96372; Q5106

== ENCOUNTER → 2020-08-13 10:52 | Outpatient (CLI) | payer MEDICAID, SELFPAY ==
[2020-08-02 13:43] VITALS: BMI 28.7
[2020-08-12 14:51] VITALS: BMI 28.7
--- NOTE | 2020-08-13 10:55 | ECHOD_ITS ---
Reason For Study: ASHD, CMP Procedure This was a 2D Doppler, Color Flow transthoracic echocardiogram. The exam was of adequate technical quality. Exam performed in department. Left Ventricle Mildly dilated left ventricle. Moderate concentric left ventricular hypertrophy. Mild segmental systolic dysfunction (see wall motion). The estimated ejection fraction is 45 %. Diastolic function is indeterminate. Mid-Posterior: Akinetic. Mid-Inferior: Akinetic. Inferior [place] : Hypokinetic. Right Ventricle Normal RV size. Normal systolic function. Atria The left atrium is moderately enlarged. The right atrium is moderately enlarged. No doppler evidence for ASD. Mitral Valve There is mild to moderate mitral annular calcification. Extension of the mitral annular calcification on the base of the posterior mitral valve leaflet. The mitral papillary muscle appears thickened and/or calcified. Mild (1+) mitral valve insufficiency. Tricuspid Valve Normal tricuspid valve. Mild tricuspid valve insufficiency. Right ventricular systolic pressure estimated to be 59 mmHg. Aortic Valve Trisinus/trileaflet aortic valve. Mild focal aortic valve calcification. Trivial aortic valve insufficiency. Pulmonic Valve The pulmonic valve is not well visualized. Mild (1+) pulmonic valve insufficiency. Great Vessels Normal sized aortic root. Calcified aortic root. Pericardium/Pleural No pericardial effusion. MMode/2D Measurements & Calculations LVIDd: 5.7 cm IVSd: 1.8 cm Ao root diam: 3.1 cm LVIDs: 4.5 cm LVPWd: 1.3 cm RVDd: 4.9 cm FS: 20.4 % LAV(MOD-bp): 103.9 ml LA A4 area: 28.5 cm2 LA dimension(2D): 4.4 cm LAV(MOD-bp) Indexed: 49.8 ml/m2 LAV(MOD-sp2): 103.0 ml LAV(MOD-sp4): 100.2 ml RA A4 area: 25.1 cm2 Time Measurements MV dec time: 0.14 sec Doppler Measurements & Calculations MV E max usha: 132.8 cm/sec Ao V2 max: 132.9 cm/sec AI max usha: 427.9 cm/sec MV A max usha: 85.3 cm/sec Ao max P.1 mmHg AI max P.3 mmHg MV E/A: 1.6 Ao V2 mean: 89.7 cm/sec AI dec slope: 248.5 cm/sec2 Ao mean P.6 mmHg AI P1/2t: 504.3 msec Ao V2 VTI: 31.4 cm LV V1 max: 83.6 cm/sec PA V2 max: 92.1 cm/sec TR max usha: 365.8 cm/sec LV V1 max P.8 mmHg TR max P.5 mmHg LV V1 mean P.5 mmHg LV V1 mean: 58.6 cm/sec LV V1 VTI: 21.6 cm Interpretation Summary Mildly dilated left ventricle. Mild segmental systolic dysfunction (see wall motion). The estimated ejection fraction is 45 %. Moderate concentric left ventricular hypertrophy. The left atrium is moderately enlarged. The right atrium is moderately enlarged. There is mild to moderate mitral annular calcification. Extension of the mitral annular calcification on the base of the posterior mitral valve leaflet. The mitral papillary muscle appears thickened and/or calcified. Mild (1+) mitral valve insufficiency. Mild tricuspid valve insufficiency. Mild focal aortic valve calcification. Trivial aortic valve insufficiency. Mild (1+) pulmonic valve insufficiency. Calcified aortic root. Right ventricular systolic pressure estimated to be 59 mmHg. Diastolic function is indeterminate. Ordering Physician: Lee Chacon Referring Physician: Blade Teixeira Performed By: Yun Card, JUNAID, RVT
== END ==
PROVIDERS: PCP Family Medicine; Referring Provider Internal Medicine Cardiovascular Disease; Visit Provider Internal Medicine Cardiovascular Disease
DX: I25.10 Atherosclerotic heart disease of native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 angina pectoris (principal); I25.5 Ischemic cardiomyopathy; I11.0 Hypertensive heart disease with heart failure; I50.22 Chronic systolic (congestive) heart failure; I47.2 Ventricular tachycardia; I38 Endocarditis, valve unspecified; E78.00 Pure hypercholesterolemia, unspecified; R60.0 Localized edema; Z95.1 Presence of aortocoronary bypass graft
CPT/HCPCS: 93306

== ENCOUNTER → 2020-08-19 11:09 | Outpatient (CLI) | payer MEDICAID, SELFPAY ==
[2020-08-12 14:51] VITALS: BMI 28.7
[2020-08-19 11:20] VITALS: BP 148/65; PULSE 53; RESP 18; TEMP 35.9; O2SAT 93; BMI 28.7
[2020-08-19 11:46] LABS: Hematocrit 32.8 % (40-54); Hemoglobin 10.3 g/dL (13.0-16.5)
[2020-08-19] MEDS: Epoetin Alfa epbx 10,000 UNITS/ML 17500 UNIT SC (12:13)
[2020-08-19 19:40] LABS: Xtra Tube EP Lab EXTRA TUBE
== END ==
PROVIDERS: PCP Family Medicine; Referring Provider Internal Medicine Nephrology; Visit Provider Internal Medicine Nephrology
DX: N18.30 Chronic kidney disease, stage 3 unspecified (principal); D63.1 Anemia in chronic kidney disease
CPT/HCPCS: 36415; 85014; 85018; 96372; Q5106

== ENCOUNTER → 2020-08-26 11:10 | Outpatient (CLI) | payer MEDICAID, SELFPAY ==
[2020-08-19 11:20] VITALS: BMI 28.7
[2020-08-26 11:34] VITALS: BP 172/84; PULSE 54; RESP 16; TEMP 36.4; O2SAT 95; BMI 27.9
[2020-08-26] MEDS: Epoetin Alfa epbx 10,000 UNITS/ML 17500 UNIT SC (12:05)
== END ==
PROVIDERS: PCP Family Medicine; Referring Provider Internal Medicine Nephrology; Visit Provider Internal Medicine Nephrology
DX: N18.30 Chronic kidney disease, stage 3 unspecified (principal); D63.1 Anemia in chronic kidney disease
CPT/HCPCS: 96372; Q5106

== ENCOUNTER → 2020-09-07 14:20 | Outpatient (CLI) | payer MEDICAID, SELFPAY ==
[2020-08-26 11:34] VITALS: BMI 27.9
[2020-09-07 14:35] VITALS: BP 184/85; PULSE 57; RESP 16; O2SAT 95
[2020-09-07 14:43] LABS: Hematocrit 34.2 % (40-54); Hemoglobin 10.8 g/dL (13.0-16.5); Mean Corp Hgb Conc 31.6 g/dL (32-36); Mean Corpuscular Hgb 28.4 pg (27.0-32.0); Mean Platelet Vol. 9.2 fl (6.2-12.0); Platelet Count 150 K/mm3 (150-450); RBC Distribution Width CV 15.1 % (11.6-14.6); RBC Distribution Width SD 49.8 fl (35.1-43.9); White Blood Count 5.5 K/mm3 (4.4-11.0)
[2020-09-07 14:49] LABS: Scan Indicated on CBC? Y/N NO
[2020-09-07 14:50] LABS: Color, Urine Yellow (Yellow); Glucose, Dipstick 100 mg/dl (Normal); Ketone-Dipstick Negative (Negative); Leukocyte Esterase-Dipstick Negative /ul (Negative); Nitrite-Dipstick Negative (Negative); Occult Blood-Urine Negative /ul (Negative); Protein-Dipstick 500 mg/dl (Negative); Urine Bilirubin Dipstick Negative (Negative); Urine Clarity Clear (Clear); Urine Urobilinogen Normal (Normal); Urine pH 6.5 (5.0 - 8.0)
[2020-09-07 14:56] LABS: PTHIN 127.4 pg/mL (18.4-80.1)
[2020-09-07 15:00] VITALS: BP 196/80
[2020-09-07 15:00] LABS: Albumin, Serum 3.1 g/dL (3.2-5.0); BUN 83 mg/dL (7-18); BUN/Creat Ratio 22.4 RATIO (10-20); Calcium,Total 8.9 mg/dL (8.5-10.1); Chloride 101 mmol/L (98-107); Creatinine, Serum 3.71 mg/dL (0.70-1.30); EST Glomerular Filtration Rate 18 mL/min (>60); Est Glom Filt Rate - Afr Amer 21 mL/min (>60); Ferritin 97 ng/mL (26-388); Glucose 150 mg/dL (74-106); Iron 55 ug/dL (65-175); Iron Binding Capacity,Total 347 ug/dL (250-450); Phosphorus 5.7 mg/dL (2.5-4.9); Potassium 4.4 mmol/L (3.5-5.1); Sodium Level 136 mmol/L (136-145); Vitamin D,25 Hydroxy 24.6 ng/mL
[2020-09-07 15:30] LABS: Protein, Urine (Random) 287.5 mg/dL (<11.9); Protein:Creat Ratio 7012 mg/g CRE (0-200)
== END ==
PROVIDERS: PCP Family Medicine; Referring Provider Internal Medicine Nephrology; Visit Provider Internal Medicine Nephrology
DX: N18.30 Chronic kidney disease, stage 3 unspecified (principal); D63.1 Anemia in chronic kidney disease
CPT/HCPCS: 36415; 80069; 81002; 82043; 82306; 82570; 82728; 83540; 83550; 83970; 84156; 85027

== ENCOUNTER → 2020-09-14 14:23 | Outpatient (CLI) | payer MEDICAID, SELFPAY ==
[2020-08-26 11:34] VITALS: BMI 27.9
[2020-09-14 14:51] VITALS: BP 166/73; PULSE 54; RESP 18; TEMP 36.2; O2SAT 94
[2020-09-14] MEDS: Epoetin Alfa epbx 10,000 UNITS/ML 17500 UNIT SC (15:10)
== END ==
PROVIDERS: PCP Family Medicine; Referring Provider Internal Medicine Nephrology; Visit Provider Internal Medicine Nephrology
DX: N18.30 Chronic kidney disease, stage 3 unspecified (principal); D63.1 Anemia in chronic kidney disease
CPT/HCPCS: 96372; Q5106

== ENCOUNTER → 2020-09-22 14:27 | Outpatient (CLI) | payer MEDICAID, SELFPAY ==
[2020-08-26 11:34] VITALS: BMI 27.9
[2020-09-22 14:43] LABS: Hematocrit 31.5 % (40-54)
[2020-09-22 15:05] VITALS: BP 153/65; PULSE 72; RESP 16; TEMP 36.6; O2SAT 98; BMI 27.9
[2020-09-22] MEDS: Epoetin Alfa epbx 10,000 UNITS/ML 17500 UNIT SC (15:21)
[2020-09-22 22:41] LABS: Xtra Tube EP Lab EXTRA TUBE
== END ==
PROVIDERS: PCP Family Medicine; Referring Provider Internal Medicine Nephrology; Visit Provider Internal Medicine Nephrology
DX: N18.30 Chronic kidney disease, stage 3 unspecified (principal); D64.9 Anemia, unspecified
CPT/HCPCS: 36415; 85014; 85018; 96372; Q5106

== ENCOUNTER 2020-09-22 23:45 | Emergency (ER) | payer MEDICAID, SELFPAY ==
[2020-09-22 15:05] VITALS: BMI 27.9
[2020-09-22 23:46] VITALS: BP 188/81; PULSE 58; RESP 16; TEMP 36.4; O2SAT 95; BMI 29.7
--- NOTE | 2020-09-23 00:12 | CT_ITS ---
STUDY: CT ABDOMEN AND PELVIS WITHOUT CONTRAST REASON FOR EXAM: Male, 64 years old. GENERALIZED ABD PAIN X 2 DAYS, INCREASED AROUND UMBILICAL REGION, INCREASED PAIN AT NIGHT, HX STAGE 3 KD, AK, CABG, HTN, DIAB RADIATION DOSAGE (If Supplied By Facility): CTDIvol = ( 26.98 ) mGy, DLP = ( 1321.347 ) mGycm TECHNIQUE: Transaxial images were obtained from the dome of the diaphragm to the symphysis pubis without oral contrast, and without intravenous contrast. Sagittal and coronal images were reconstructed. Individualized dose optimization techniques were used for this CT. COMPARISON: 03/15/2016. FINDINGS: Bilateral lower lobe atelectasis. Mild bilateral pleural effusions. Mild cardiomegaly with coronary artery calcifications. Diffuse fluid infiltration of the subcutaneous fat consistent with anasarca. Normal liver. Mild to moderate ascites within the abdomen and pelvis. Normal gallbladder and extrahepatic biliary system. Normal spleen. Normal pancreas. Normal bilateral adrenal glands. Normal right kidney. Normal left kidney. Normal visualized stomach. Normal small intestine. Mild diverticulosis with no signs of diverticulitis. Moderate fecal debris within the colon. The appendix is visualized and appears normal. Calcified atherosclerotic disease of aorta and corresponding branches including the bilateral renal arteries. No aneurysm. Normal inferior vena cava. Normal retroperitoneum. Normal urinary bladder. Normal abdominal wall. Diffuse osteopenia along with degenerative disease of the SI joints and visualized left hip. There is a right-sided hip prosthesis in place. CT/Abdomen/Pelvis without Cont IMPRESSION: New interval appearance of ascites, mild bilateral pleural effusions and anasarca. Calcified_disease of aorta and corresponding branches, progressed in the interval. No acute process throughout the gastrointestinal tract. Specifically, no signs of bowel obstruction. No acute appendicitis. Electronically Signed: Leatha Flores MD at 1:26 EST , Service support ,
--- NOTE | 2020-09-23 00:20 | ED.VIS.GEN ---
History of Present Illness Chief Complaint: Abd Pain Narrative: Patient presents with 1 week history of abdominal pain it is right side of the abdomen right next to the umbilicus. He has no specific right lower quadrant or right upper quadrant pain. He has no left-sided pain. He denies diarrhea or constipation although he normally only has bowel movements every other day. He has no nausea or vomiting he has been able to eat with no difficulty. He has no chest pain shortness of breath he has no back pain or tearing sensation. Past medical history: Hypertension, hypercholesterolemia, prior cardiac history, chronic renal disease Past surgical history: CABG Social history: Unremarkable. Review of systems: All systems negative except as indicated General: Denies: Fever Eyes: Denies: Visual changes - bilaterally ENT: Denies: Rhinorrhea, Sore throat Cardiovascular: Denies: Chest pain Respiratory: Denies: Dyspnea, Cough Gastrointestinal: Abdominal pain as in HPI without any nausea vomiting or diarrhea. Genitourinary: Denies: Dysuria Musculoskeletal: Denies: Myalgias Skin: Denies: Rash Neurological: Denies: Headache, no focal weakness Psych: Reports: negative Hematologic: Denies: Easy bruising, Easy bleeding Physical exam General: Well nourished, Well developed, No Acute Distress Head: Normocephalic, Atraumatic Eyes: Conjunctiva not pale ENT: Moist mucous membranes Neck: Supple, Nontender, No lymphadenopathy Cardiovascular: Regular rate, Regular rhythm Respiratory: No distress, CTA bilaterally Abdomen: Soft, slightly distended. No fluid wave. There is tenderness next to the umbilicus on the right but no obvious hernia. There is no right upper quadrant pain. No lower abdominal pain or pain at McBurney's. Kam sign is negative. There is no guarding or rebound. Back: Nontender, Normal Inspection. Negative for: CVA tenderness Extremities: Nontender, No edema Skin: Normal color, No rash Neurological: Alert, Normal Strength, Normal Sensation Psychological: Normal affect Past Medical History - Allergies and Home Meds Allergies/Adverse Reactions: Allergies pregabalin [From Lyrica] Allergy (Verified 09/22/20 23:46) Angioedema Primary Care Physician: Blade Teixeira MD [Primary Care Provider] - Surgical History: arthroscopy, knee, coronary bypass surgery, total hip arthroplasty, total knee arthroplasty, - - Wrist surgery, glaucoma surgery, femur surgery with retained hardware (surgeon Dr. Ryan Peguero [phone]) Smoking Status: Never smoker - Family History Paternal Family History: Family History (Last Reviewed 08/02/20 @ 13:47 by Florencia Maldonado) Father CAD (coronary artery disease) Mother CAD (coronary artery disease) Family History: Reports: Heart Disease Maternal Family History: Family History (Last Reviewed 08/02/20 @ 13:47 by Florencia Maldonado) Father CAD (coronary artery disease) Mother CAD (coronary artery disease) Family History: Reports: Heart Disease Physical Exam Vital Signs/Narrative: Vital Signs Temp Pulse Resp BP Pulse Ox 09/22/20 23:46 97.6 F L 58 L 16 188/81 H 95 Diagnostic/Tx/Re-eval - Medical Decision Making Patient is found to have ascites, he also has worsening of his BUN and creatinine. He has seen his geospatial applications developer last week and was told he will need dialysis very soon. He is clearly getting worse and now he is retaining fluid. I will admit him to our hospital for nephrology consult, IV access for dialysis and dialysis evaluation. I had talked to the hospitalist for admission however I was told that the patient is now refusing admission. I went back to talk to him, apparently he wants to see his geospatial applications developer tomorrow morning he had talked to his who want the same thing. At this time he has normal vitals, he does not have any electrolyte abnormalities and he is not hypoxic however because of the anasarca the worsening renal failure I do believe he needs dialysis very soon. He told me that he cannot stay in the hospital tonight and that he needs to go home, he refused to give me any further explanation. I did tell him that he could decompensate, he could stop breathing or he could have electrolyte problems which could also cause cardiac arrest and . He understands this but does not want to stay. He signed an AMA form and he is lucid and coherent and cannot make up his own mind to keep him against his will would be an assault. Unfortunately I will discharge him AGAINST MEDICAL ADVICE per his request. He did mention that he will follow-up with his geospatial applications developer and call them in the morning. I did tell him that if he changes his mind or he gets worse he is more than welcome to return to the emergency department. He understand that and verbalized back to me. ED Disposition - Plan for ED Patient: [facility] Diagnosis: Renal failure, Left against medical advice Instructions: Coping with Kidney Failure, ED Chronic Kidney Disease (CKD), ED Diet for Chronic Kidney Disease, ED Hemodialysis Additional Instructions: Call your geospatial applications developer, Dr. Rogers tomorrow morning. If you get worse or you change your mind please return to the emergency department right away.
[2020-09-23 00:30] LABS: Absolute Lymphocyte Count 0.39 X10^3/uL (0.83-4.51); Absolute Neutrophil Count 4.2 X10^3/uL (2.0-7.7); Basophil# 0.02 X10^3/uL; Basophil% 0.4 % (0-1); Eosinophil# 0.14 X10^3/uL; Eosinophils% 2.5 % (0-5); Hematocrit 31.6 % (40-54); Hemoglobin 9.9 g/dL (13.0-16.5); Lymphocyte # 0.39 X10^3/ul (4.0); Mean Corp Hgb Conc 31.3 g/dL (32-36); Mean Corpuscular Hgb 27.8 pg (27.0-32.0); Mean Corpuscular Volume 88.8 fL (80-94); Mean Platelet Vol. 10.4 fl (6.2-12.0); Monocyte% 14.3 % (0-10); NRBC Flagged by Analyzer 0 % (0-5); Neutrophil % 75.3 % (47-70); POSITIVE DIFFERENTIAL YES; Platelet Count 241 K/mm3 (150-450); RBC Distribution Width CV 15.5 % (11.6-14.6); RBC Distribution Width SD 48.4 fl (35.1-43.9); Red Blood Count 3.56 M/mm3 (4.6-6.2); White Blood Count 5.6 K/mm3 (4.4-11.0)
[2020-09-23 00:31] LABS: Differential Indicated SCAN CRITERIA MET
[2020-09-23] MEDS: 0.9% Normal Saline 1,000 ML 125 ML IV (00:37)
[2020-09-23] MEDS: Ondansetron 4 MG/2 ML Vial IV (00:38)
[2020-09-23] MEDS: Morphine 2 MG/ML Syringe IV (00:39)
[2020-09-23 00:51] LABS: ALB/GLOB Ratio 0.7 RATIO (0.9-2.4); AST(SGOT) 38 U/L (15-37); Alanine Aminotransfer ALT/SGPT 41 U/L (16-61); Albumin, Serum 2.9 g/dL (3.2-5.0); Alkaline Phosphatase 213 U/L (45-117); Anion Gap 9 (5-15); BUN 115 mg/dL (7-18); BUN/Creat Ratio 25.4 RATIO (10-20); Calcium,Total 9.5 mg/dL (8.5-10.1); Chloride 98 mmol/L (98-107); Creatinine, Serum 4.53 mg/dL (0.70-1.30); EST Glomerular Filtration Rate 14 mL/min (>60); Est Glom Filt Rate - Afr Amer 17 mL/min (>60); Estimated Creatinine Clearance 17.46 ml/min; Glucose 258 mg/dL (74-106); Lipase 85 U/L (73-393); Potassium 4.3 mmol/L (3.5-5.1); Protein, Total 6.9 g/dL (6.4-8.2); Sodium Level 135 mmol/L (136-145)
--- NOTE | 2020-09-23 01:54 | PCM.HP.STD ---
History of Present Illness Date of Admission: 09/23/20 Chief Complaint: Abdominal pain The patient is a 64 y/o M w/ PMHx: Chronic anemia, CAD s/p CABG w/ CARTY-LAD, SVG-OM, SVG-PDA, Chronic systolic CHF/Ischemic Cardiomyopathy, Chronic Bradycardia, HTN, HLD, Diabetes mellitus type II, Chronic BL LE lymphedema, CKD stage IV with progressively worsening renal function who presents to the [facility] ED on 09/23/20 with history of ongoing abdominal pain, specifically to the right side of his umbilicus with no associated nausea or emesis but difficulty encouraging himself to eat over the last several days with unchanged routine bowel movement every other day but given not improving prompted ED evaluation. Work-up in the ED included T 97.6, heart rate 58, BP 118/81, respiratory rate 16, 95% on room air, CBC with WC 5.6, hemoglobin 9.9, platelet 241 with lymphopenia noted, CMP with sodium 135, BUN/creatinine 115/4.53, glucose 258, AST/ALT 38/41, total bilirubin 0.50, alk phos 213, lipase 85, CT abdomen and pelvis with a new interval appearance of ascites and mild bilateral pleural effusions with anasarca, calcified disease of the aorta and corresponding branches progressed in the interval with no acute process through the GI tract. 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 Anasarca, BL Pleural effusions secondary to Acute CHF Exacerbation, Systolic CHF Hx/Ischemic Cardiomyopathy complicated by #1, Cardiorenal: Will maintain on cardiac telemetry, obtain cardiac enzyme series, obtain serial EKGs, continue IV lasix diuresis until HD set-up given current acute overload presentation, monitor I/Os, maintain on intake restriction, continue medical therapy, obtain TSH and magnesium level. Most recent ECHO noted 08/13/2020 with mildly dilated LV, mild segmental systolic dysfunction, EF 45%, moderate concentric LVH, moderately enlarged LA and RA, mild MVI, mild TVI, trivial OMAR, mild PVI, RVSP 59 mmHg, diastolic dysfunction indeterminate. Chronic normocytic anemia, AOCD: Admission hemoglobin 9.9, baseline 9-10, stable, continue to trend. CAD: Status post CABG x3, will continue aspirin, statin, Coreg, not on MIN inhibitor or ARB. Hypertension: Continue home regimen including Coreg, clonidine, doxazosin, hydralazine, using IV Lasix as noted above given acute presentation #2, PRN hydralazine. Hyperlipidemia: Continue home statin regimen. Diabetes mellitus type II: Hold oral home regimen, continue home insulin regimen, ADA diet, accu checks w/ ISS. BPH: We will continue patient home finasteride regimen. Chronic bradycardia: Patient with chronic bradycardia per history, will continue Coreg regimen, monitor on telemetry as noted. Chronic bilateral lower extremity lymphedema: Snug Min wraps with elevation. DVT prophylaxis: SCDs, heparin. Past Medical History Past Medical History (Chronic Problems): Chronic Problems (Last Reviewed 08/02/20 @ 13:47 by Florencia Maldonado) Pure hypercholesterolemia (Chronic) Ischemic cardiomyopathy (Chronic) Essential hypertension (Chronic) Leg swelling (Chronic) Leg edema (Chronic) Overweight (BMI 25.0-29.9) (Chronic) Ankylosing spondylitis (Chronic) Renal insufficiency (Chronic) Hx of CABG (Chronic ~04/12/17) CARTY to LAD, SVG to PDA, SVG to OM 04/12/2017 @ [facility]; Ventricular tachyarrhythmia (Chronic) Atherosclerosis of [place] coronary artery of [place] heart without angina pectoris (Chronic) S/P surgery with CARTY to LAD, SVG to OM system, and SVG to PDA in March 2017 at [facility]; DM2 (diabetes mellitus, type 2) (Chronic) Gout (Chronic) Diabetes mellitus with neuropathy (Chronic) Abscess of right foot (Chronic) CHF (congestive heart failure) (Chronic) NSTEMI (non-ST elevated myocardial infarction) (Chronic) Valvular heart disease (Chronic) Cardiomyopathy (Chronic) Pulmonary HTN (Chronic) Medical History: Medical History (Last Reviewed 08/02/20 @ 13:47 by Florencia Maldonado) Pure hypercholesterolemia (Chronic) E78.00 Ischemic cardiomyopathy (Chronic) I25.5 Essential hypertension (Chronic) I10 Leg swelling (Chronic) M79.89 Leg edema (Chronic) R60.0 Overweight (BMI 25.0-29.9) (Chronic) E66.3 Ankylosing spondylitis (Chronic) M45.9 Renal insufficiency (Chronic) N28.9 Ventricular tachyarrhythmia (Chronic) I47.2 Atherosclerosis of [place] coronary artery of [place] heart without angina pectoris (Chronic) I25.10 S/P surgery with CARTY to LAD, SVG to OM system, and SVG to PDA in March 2017 at [facility]; DM2 (diabetes mellitus, type 2) (Chronic) E11.9 Gout (Chronic) M10.9 Diabetes mellitus with neuropathy (Chronic) E11.40 Abscess of right foot (Chronic) L02.611 CHF (congestive heart failure) (Chronic) I50.9 NSTEMI (non-ST elevated myocardial infarction) (Chronic) I21.4 Valvular heart disease (Chronic) Cardiomyopathy (Chronic) I42.9 Pulmonary HTN (Chronic) I27.2 Acute systolic heart failure I50.21 Biliary pleural effusion J90 Bradycardia R00.1 CAD (coronary artery disease) (Inactive) I25.10 HTN (hypertension) (Inactive) I10 Allergies pregabalin [From Lyrica] Allergy (Verified 09/22/20 23:46) Angioedema Home Medications: Ambulatory Orders Medication Instructions Recorded Insulin Detemir [Levemir] 15 unit SQ DINNER 06/03/18 Latanoprost 0.005% [Xalatan 1 drp EACH EYE QHS 06/03/18 Opthalmic] Tadalafil [Cialis] 60 mg PO PRN PRN 06/03/18 aspirin 81 mg tablet,delayed 81 mg PO DAILY tab 08/02/18 release Multivitamin with Minerals 2 ea PO DAILY 03/21/19 [Multiple Vitamin] finasteride 5 mg tablet 5 mg PO DAILY 05/06/19 atorvastatin 40 mg tablet 40 mg PO QHS #90 tab 11/06/19 bumetanide 2 mg tablet 2 mg PO DAILY #90 tab 11/06/19 carvedilol 25 mg tablet 25 mg PO BID #180 tab 11/06/19 metolazone 2.5 mg tablet 2.5 mg PO PRN PRN tab 11/06/19 calcitriol 0.5 mcg capsule 0.5 mcg PO DAILY 08/02/20 clonidine HCl 0.1 mg tablet 0.1 mg PO TID 08/02/20 doxazosin 2 mg tablet 4 mg PO BID tab 08/02/20 hydralazine 100 mg tablet 100 mg PO TID tab 08/02/20 loratadine 10 mg tablet 10 mg PO DAILY 08/02/20 melatonin 5 mg tablet 5 mg PO HS PRN 08/02/20 Minoxidil [Loniten] 2.5 mg PO DAILY 09/22/20 Surgical History: Surgical History (Last Reviewed 08/02/20 @ 13:47 by Florencia Maldonado) Hx of CABG (Chronic) Onset Date: ~04/12/17 Z95.1 CARTY to LAD, SVG to PDA, SVG to OM 04/12/2017 @ [facility]; Hx of arthroscopy Z98.890 knee, hip hx femur surgery Hx right femur surgery with retained hardware History of open reduction and internal fixation (ORIF) procedure Z98.890 Left wrist, hip Surgical History: arthroscopy, knee, coronary bypass surgery, total hip arthroplasty, total knee arthroplasty, - - Wrist surgery, glaucoma surgery, femur surgery with retained hardware (surgeon Dr. Ryan Peguero [phone]) Psychiatric History: No pertinent psych hx Smoking Status: Never smoker - *Family History Paternal Family History: Family History (Last Reviewed 08/02/20 @ 13:47 by Florencia Maldonado) Father CAD (coronary artery disease) Mother CAD (coronary artery disease) History Items: Heart Disease Maternal Family History: Family History (Last Reviewed 08/02/20 @ 13:47 by Florencia Maldonado) Father CAD (coronary artery disease) Mother CAD (coronary artery disease) History Items: Heart Disease Patient Problems: Active and Suspected Problems (Last Reviewed 08/02/20 @ 13:47 by Florencia Maldonado) Renal failure (Acute) - Physical Exam Vitals/I&O's: Vital Signs Temp Pulse Resp BP Pulse Ox 97.6 F L 58 L 16 188/81 H 95 09/22/20 23:46 09/22/20 23:46 09/22/20 23:46 09/22/20 23:46 09/22/20 23:46 Oxygen Delivery Method Room Air Weight: 207 lb 7.28 oz Body Mass Index (BMI) 29.7 Finger Stick Blood Glucose 210 Laboratory Results 09/23/20 00:25: WBC 5.6, RBC 3.56 L, Hgb 9.9 L, Hct 31.6 L, MCV 88.8, MCH 27.8, MCHC 31.3 L, RDW Std Deviation 48.4 H, RDW Coeff of Yuri 15.5 H, Plt Count 241, MPV 10.4, Immature Gran % (Auto) 0.500, Neut % (Auto) 75.3 H, Lymph % (Auto) 7.0 L, Kimble % (Auto) 14.3 H, Eos % (Auto) 2.5, Baso % (Auto) 0.4, Absolute Neuts (auto) 4.2, Absolute Lymphs (auto) 0.39 L, Nucleated RBC % 0 09/23/20 00:25: Sodium 135 L, Potassium 4.3, Chloride 98, Carbon Dioxide 28.0, Anion Gap 9, BUN 115 H*, Creatinine 4.53 H, Estim Creat Clear Calc 17.46, Est GFR (MDRD) Af Amer 17 L, Est GFR (MDRD) Non-Af 14 L, BUN/Creatinine Ratio 25.4 H, Glucose 258 H, Calcium 9.5, Total Bilirubin 0.50, AST 38 H, ALT 41, Alkaline Phosphatase 213 H, Total Protein 6.9, Albumin 2.9 L, Globulin 4.0, Albumin/Globulin Ratio 0.7 L, Lipase 85 Current Medications Sodium Chloride () 1,000 mls @ 125 mls/hr IV .Q8H [facility] Last Admin: 09/23/20 00:37 Dose: 125 mls/hr Documented by: Assessment/Plan All Active Problems (Last Reviewed 08/02/20 @ 13:47 by Florencia Maldonado) Renal failure (Acute) Neck muscle strain (Resolved) Lethargy (Resolved) GARRET (acute kidney injury) (Acute) Hyperkalemia (Acute) Cervical myofascial strain (Resolved) Generalized weakness (Resolved)
[2020-09-23 02:11] VITALS: BP 124/87; PULSE 56; RESP 16; O2SAT 94
== END 2020-09-23 02:40 | disposition home or self-care (01) ==
PROVIDERS: Emergency Provider Emergency Medicine; PCP Family Medicine
DX: I12.9 Hypertensive chronic kidney disease with stage 1 through stage 4 chronic kidney disease, or unspecified chronic kidney disease (principal); N18.30 Chronic kidney disease, stage 3 unspecified; D64.9 Anemia, unspecified; E78.00 Pure hypercholesterolemia, unspecified; Z95.1 Presence of aortocoronary bypass graft
CPT/HCPCS: 36415; 74176; 80053; 83690; 85014; 85018; 85025; 96372; 99283; J7030; A4216; J2405; Q5106

== ENCOUNTER → 2020-09-27 10:06 | Outpatient (CLI) | payer MEDICAID, SELFPAY ==
[2020-09-22 23:46] VITALS: BMI 29.7
--- NOTE | 2020-09-27 10:09 | VDUE_ITS ---
Reason For Study: CKD Stage 3 Right Arm Left Arm Right Cephalic Vein at the wrist measures Left Cephalic Vein at the wrist measures 0.39 x 0.4. cm. 0.39 x 0.43 cm. Right Cephalic Vein in the forearm measures Left Cephalic Vein in the forearm measures 0.41 x 0.42 cm. 0.43 x 0.47 cm. Right Cephalic Vein below antecub measures Left Cephalic Vein below antecub measures 0.47 x 0.49 cm. 0.41 x 0.41 cm. Right Cephalic Vein above antecub measures Left Cephalic Vein above antecub measures 0.49 x 0.51 cm. 0.39 x 0.39 cm. Right Cephalic Vein mid bicep measures 0.49 Left Cephalic Vein at mid bicep measures x 0.46 cm. 0.36 x 0.37 cm. Right Cephalic Vein at the shoulder measures Left Cephalic Vein at the shoulder measures 0.45 x 0.45 cm. 0.35 x 0.37 cm. Right Basilic Vein at the origin measures Basilic vein at origin measures 0.60 x 0.58 0.58 x 0.54 cm. cm. Right Basilic Vein mid bicep measures 0.53 x Basilic vein at bicep measures 0.49 x 0.51 0.57 cm. cm. Right Basilic Vein above antecub measures Basilic vein above antecub measures 0.54 x 0.64 x 0.62 cm. 0.56 cm. Right Brachial artery measures 0.51 x 0.51 Left Brachial artery measures 0.52 x 0.53 cm cm with a velocity of 82.9 cm/sec. with a velocity of 97.8 cm/sec. Right Radial artery measures 0.28 x 0.28 cm Left Radial artery measures 0.30 x 0.30 cm with a velocity of 128.6 cm/sec. with a velocity of 92.8 cm/sec. Interpretation Summary Patent and compressible bilateral upper extremity cephalic and basilic veins with a generous dimensions as noted. Normal diameter and flow bilateral radial and brachial arteries Ordering Physician: Daniel Mcfadden Referring Physician: Blade Teixeira Performed By: Angeli Avendano RVT ?
== END ==
PROVIDERS: PCP Family Medicine; Referring Provider Internal Medicine Nephrology; Visit Provider Internal Medicine Nephrology
DX: Z01.818 Encounter for other preprocedural examination (principal); N18.30 Chronic kidney disease, stage 3 unspecified
CPT/HCPCS: 93970

== ENCOUNTER 2020-09-29 13:12 | Inpatient (IN) | payer MEDICAID, SELFPAY ==
[2020-09-29] VITALS (10 sets, daily range): BP systolic 146–188; BP diastolic 63–94; PULSE 51–61; RESP 13–18; TEMP 36.3–36.6; O2SAT 91–96; BMI 29.7; BMI 30.7
--- NOTE | 2020-09-29 14:12 | EKG12_ITS ---
Test Reason : UPPER EXTREMITY Blood Pressure : / mmHG Vent. Rate : 054 BPM Atrial Rate : 054 BPM P-R Int : 236 ms QRS Dur : 134 ms QT Int : 446 ms P-R-T Axes : 011 242 070 degrees QTc Int : 422 ms Somatic / Motion Artifact Low Voltage QRS (Limb Leads) Sinus bradycardia with 1st degree A-V block Right bundle branch block Possible Inferior infarct , age undetermined Possible Anterior Infarct, age undetermined Nonspecific ST/T wave Abnormality Abnormal ECG Confirmed by ALONA RASMUSSEN, NIKKO ([id number]), content editor ARNIE BARLOW ([id number]) on 10/01/2020 11:30:10 AM Referred By: LYNDON Confirmed By:NIKKO SAGE MD
--- NOTE | 2020-09-29 14:20 | ED.DCSUM_ITS ---
- ER Visit Summary Date of Service: 09/29/20 Chief Complaint: Lower extremity edema History of Present Illness: The patient is a 64 M who presents with lower extremity edema that has been getting worse over the past month. Patient states it is worse on the left. Patient states he has some dull pain in his left leg. Patient states his medications have been changed recently and his diuretic has been increased. Patient states this has not helped. Patient denies any chest pain or shortness of breath. Patient denies any nausea or vomiting. Patient denies any fevers or chills. Physical Examination: Vital signs are stable. Patient is afebrile. Patient is in no acute distress. Oral mucosa is pink and moist. Neck is supple. Trachea is midline. There is no JVD. Heart was regular rate and rhythm. Lungs show bibasilar Rales. There is good respiratory effort noted. Abdomen is soft. Bowel sounds are normal. There is no tenderness. Cranial nerves II through XII are intact. There are no focal motor or sensory deficits noted. Extremities are intact. There is 3+ edema on the left lower extremity and 2+ edema of the right lower extremity. There is no calf tenderness noted. Test Results: EKG was obtained. On my interpretation, it showed normal sinus rhythm with a first-degree AV block with a rate of 54. There is a right bundle branch block. There are no acute ST or T wave changes. CBC shows mild anemia with a hemoglobin of 9.8 and hematocrit of 30.9. Comprehensive metabolic profile shows a slightly elevated glucose of 245. BUN was 128 and creatinine was 5.25. These are increased from previous results. Troponin was slightly e levated at 0.097. BNP was elevated at 1941.2. Portable chest x-ray was obtained. There is 1 view. On my interpretation, there is some increased vascular congestion from previous study. There is some mild cardiomegaly. There is no pneumothorax. Bony thorax is intact. Radiologist also interpreted the x-ray and agrees. Emergency Department Course and Treatment: Patient was given a dose of Tylenol here. Patient was given a dose of Lasix. Patient had no urine output with the Lasix. Case was discussed with the hospitalist. She will admit the patient to her service. Dr. Mujica also been paged. He stated that he talk to the hospitalist. He stated that the patient likely needs dialysis and he will arrange for that. Patient understood and was agreeable with the plan. All questions were answered. Disposition: Admit to hospital Impression: 1. Acute on chronic kidney disease 2. Congestive heart failure This note was generated with [employer] dictation software. It may contain incorrect words, spelling, and punctuation that were not noted in review of the chart prior to signing ED Disposition - Plan for ED Patient: Disposition: Acute Care Hospital [facility] [place] Diagnosis: Acute kidney injury superimposed on chronic kidney disease, CHF (congestive heart failure) Referrals: Blade Teixeira MD [Primary Care Provider] -
--- NOTE | 2020-09-29 14:30 | RAD_ITS ---
STUDY: X-RAY CHEST REASON FOR EXAM: Male, 64 years old. RETAINING FLUID LEFT LOWER LEG TECHNIQUE: Single AP portable view of the chest. COMPARISON: Comparison is made with prior study dated 04/29/2019. FINDINGS: EKG electrodes are seen. Vascular congestion and mild degree of CHF. There is no demonstrated pleural abnormality. Sternal cerclage wires and vascular clips are present from a prior sternotomy and coronary artery bypass graft procedure (CABG). Moderate cardiomegaly. Normal mediastinum and sofi. Normal visualized pulmonary arteries. There is atherosclerotic calcification of the aortic arch with tortuosity. Normal visualized thoracic spine. Normal visualized ribs, clavicles, and shoulders. There is no demonstrated abnormality of the visualized soft tissue structures of the upper abdomen. RAD/Chest 1 View (Portable) IMPRESSION: Cardiomegaly. Vascular congestion and mild degree of CHF. Electronically Signed: Enrike Pina MD at 14:48 EST , Service support ,
[2020-09-29 14:37] LABS: Absolute Lymphocyte Count 0.48 X10^3/uL (0.83-4.51); Absolute Neutrophil Count 6.3 X10^3/uL (2.0-7.7); Basophil# 0.03 X10^3/uL; Basophil% 0.4 % (0-1); Differential Indicated SCAN CRITERIA MET; Eosinophil# 0.17 X10^3/uL; Eosinophils% 2.1 % (0-5); Hematocrit 30.9 % (40-54); Hemoglobin 9.8 g/dL (13.0-16.5); Lymphocyte # 0.48 X10^3/ul (4.0); Mean Corp Hgb Conc 31.7 g/dL (32-36); Mean Corpuscular Hgb 28.2 pg (27.0-32.0); Mean Platelet Vol. 9.5 fl (6.2-12.0); Monocyte# 0.93 X10^3/uL; Monocyte% 11.7 % (0-10); NRBC Flagged by Analyzer 0 % (0-5); Neutrophil # 6.34 X10^3/uL (2.7-7.7); Neutrophil % 79.4 % (47-70); POSITIVE DIFFERENTIAL YES; Platelet Count 183 K/mm3 (150-450); RBC Distribution Width CV 16.3 % (11.6-14.6); RBC Distribution Width SD 51.9 fl (35.1-43.9); Red Blood Count 3.47 M/mm3 (4.6-6.2)
[2020-09-29] MEDS: Furosemide 40 MG/4 ML Vial IV (14:39)
[2020-09-29 14:54] LABS: Differential Comment SCANNED
[2020-09-29 14:58] LABS: Acanthocytes 1+; Hypochromasia 3+
[2020-09-29 14:59] LABS: Schistocytes RARE; Target Cells 2+
[2020-09-29 15:01] LABS: BNP,B-Type NATRIURETIC PEPTIDE 1941.2 pg/mL (0-100)
[2020-09-29 15:05] LABS: ALB/GLOB Ratio 0.7 RATIO (0.9-2.4); AST(SGOT) 20 U/L (15-37); Alanine Aminotransfer ALT/SGPT 24 U/L (16-61); Albumin, Serum 2.8 g/dL (3.2-5.0); Alkaline Phosphatase 172 U/L (45-117); Anion Gap 8 (5-15); BUN 128 mg/dL (7-18); BUN/Creat Ratio 24.4 RATIO (10-20); Calcium,Total 9.2 mg/dL (8.5-10.1); Chloride 98 mmol/L (98-107); Creatinine, Serum 5.25 mg/dL (0.70-1.30); EST Glomerular Filtration Rate 12 mL/min (>60); Est Glom Filt Rate - Afr Amer 14 mL/min (>60); Estimated Creatinine Clearance 15.06 ml/min; Globulin 3.9 g/dL (2.2-4.2); Glucose 245 mg/dL (74-106); Potassium 4.2 mmol/L (3.5-5.1); Protein, Total 6.7 g/dL (6.4-8.2); Sodium Level 134 mmol/L (136-145)
[2020-09-29] MEDS: Acetaminophen 500 MG Tablet 1000 MG PO (15:16)
--- NOTE | 2020-09-29 15:54 | PCM.HP.STD ---
Problem List (1) Acute kidney injury superimposed on chronic kidney disease Status: Acute (2) Lethargy Status: Resolved (3) GARRET (acute kidney injury) Status: Acute (4) Hyperkalemia Status: Acute (5) Pure hypercholesterolemia Status: Resolved (6) Ischemic cardiomyopathy Status: Chronic (7) Essential hypertension Status: Chronic (8) Leg edema Status: Chronic (9) Overweight (BMI 25.0-29.9) Status: Chronic (10) Ankylosing spondylitis Status: Chronic (11) Hx of CABG Status: Chronic Comment: CARTY to LAD, SVG to PDA, SVG to OM 04/12/2017 @ [facility]; (12) Ventricular tachyarrhythmia Status: Chronic (13) Atherosclerosis of [place] coronary artery of [place] heart without angina pectoris Status: Chronic Comment: S/P surgery with CARTY to LAD, SVG to OM system, and SVG to PDA in March 2017 at [facility]; (14) DM2 (diabetes mellitus, type 2) Status: Chronic Qualifiers: (15) Gout Status: Chronic (16) Diabetes mellitus with neuropathy Status: Chronic Qualifiers: (17) CHF (congestive heart failure) Status: Chronic Qualifiers: Heart failure type: systolic Heart failure chronicity: chronic Qualified Code(s): I50.22 - Chronic systolic (congestive) heart failure (18) NSTEMI (non-ST elevated myocardial infarction) Status: Chronic (19) Valvular heart disease Status: Chronic (20) Cardiomyopathy Status: Chronic Qualifiers: (21) Pulmonary HTN Status: Chronic History of Present Illness Date of Admission: 09/29/20 Mr. Nuñez is a 64 year old WM with a past medical history of HTN, HPL, CAD status post CABG, CKD stage IV-V, DM-2, HFrEF, erectile dysfunction, and BPH who presented to the emergency department on 09/29/2020 secondary to bilateral lower extremity edema that has progressively getting worse over the last approximately month. He states that he has had chronic lower extremity edema but since about the beginning of the year his symptoms have significantly worsened. He complains of exertional shortness of breath but no shortness of breath at rest. He denies fever, chills, chest pain, urinary different difficulty or decreased urine output, abnormal bowels, tingling, numbness, and weakness. He presented to the emergency department on 09/22/2020 for similar symptoms and signed out AMA at that time and followed up with Dr. Jackson, his artist agent, as an outpatient. He has already undergone vein mapping and arterial studies in preparation for an AV fistula with Dr. Schulz. His diuretics were increased when he saw his primary artist agent as well, but this does not appear to be helping him. He is afebrile on admission, heart rate is 56-61, blood pressures are elevated, respiratory rate is 16-18, and his oxygen saturations were 97% on 2 L nasal cannula. He was placed on oxygen secondary to a room air sat of 91%. CBC shows a chronic anemia. His CMP shows mild hyponatremia with a sodium 134, markedly elevated BUN with a creatinine of 5.25, his glucose was 245, and his BNP was 1941.2. His EKG shows no acute changes. A chest x-ray was performed and shows mild volume overload. I discussed this case with his primary artist agent, Dr. Jackson, and we will have a tunneled dialysis catheter placed and initiate dialysis. Dr. Schulz has been consulted for the placement of a tunneled dialysis catheter Past Medical History Past Medical History (Chronic Problems): Chronic Problems (Last Reviewed 08/02/20 @ 13:47 by Florencia Maldonado) Pure hypercholesterolemia (Chronic) Ischemic cardiomyopathy (Chronic) Essential hypertension (Chronic) Leg swelling (Chronic) Overweight (BMI 25.0-29.9) (Chronic) Ankylosing spondylitis (Chronic) Renal insufficiency (Chronic) Hx of CABG (Chronic ~04/12/17) CARTY to LAD, SVG to PDA, SVG to OM 04/12/2017 @ [facility]; Ventricular tachyarrhythmia (Chronic) Atherosclerosis of [place] coronary artery of [place] heart without angina pectoris (Chronic) S/P surgery with CARTY to LAD, SVG to OM system, and SVG to PDA in March 2017 at [facility]; DM2 (diabetes mellitus, type 2) (Chronic) Gout (Chronic) Diabetes mellitus with neuropathy (Chronic) Abscess of right foot (Chronic) CHF (congestive heart failure) (Chronic) NSTEMI (non-ST elevated myocardial infarction) (Chronic) Valvular heart disease (Chronic) Cardiomyopathy (Chronic) Pulmonary HTN (Chronic) Medical History: Medical History (Last Reviewed 09/29/20 @ 16:[address] Elizabeth Heart, DO) Pure hypercholesterolemia (Chronic) E78.00 Ischemic cardiomyopathy (Chronic) I25.5 Essential hypertension (Chronic) I10 Leg swelling (Chronic) M79.89 Leg edema (Acute) R60.0 Overweight (BMI 25.0-29.9) (Chronic) E66.3 Ankylosing spondylitis (Chronic) M45.9 Renal insufficiency (Chronic) N28.9 Ventricular tachyarrhythmia (Chronic) I47.2 Atherosclerosis of [place] coronary artery of [place] heart without angina pectoris (Chronic) I25.10 S/P surgery with CARTY to LAD, SVG to OM system, and SVG to PDA in March 2017 at [facility]; DM2 (diabetes mellitus, type 2) (Chronic) E11.9 Gout (Chronic) M10.9 Diabetes mellitus with neuropathy (Chronic) E11.40 Abscess of right foot (Chronic) L02.611 CHF (congestive heart failure) (Chronic) I50.9 NSTEMI (non-ST elevated myocardial infarction) (Chronic) I21.4 Valvular heart disease (Chronic) Cardiomyopathy (Chronic) I42.9 Pulmonary HTN (Chronic) I27.2 Acute systolic heart failure I50.21 Biliary pleural effusion J90 Bradycardia R00.1 CAD (coronary artery disease) (Inactive) I25.10 HTN (hypertension) (Inactive) I10 Allergies pregabalin [From Lyrica] Allergy (Verified 09/29/20 13:13) Angioedema Home Medications: Ambulatory Orders Medication Instructions Recorded Insulin Detemir [Levemir] 15 unit SQ DINNER 06/03/18 Latanoprost 0.005% [Xalatan 1 drp EACH EYE QHS 06/03/18 Opthalmic] Tadalafil [Cialis] 60 mg PO PRN PRN 06/03/18 aspirin 81 mg tablet,delayed 81 mg PO DAILY tab 08/02/18 release Multivitamin with Minerals 2 ea PO DAILY 03/21/19 [Multiple Vitamin] finasteride 5 mg tablet 5 mg PO DAILY 05/06/19 atorvastatin 40 mg tablet 40 mg PO QHS #90 tab 11/06/19 bumetanide 2 mg tablet 2 mg PO DAILY #90 tab 11/06/19 carvedilol 25 mg tablet 25 mg PO BID #180 tab 11/06/19 metolazone 2.5 mg tablet 2.5 mg PO PRN PRN tab 11/06/19 calcitriol 0.5 mcg capsule 0.5 mcg PO DAILY 08/02/20 clonidine HCl 0.1 mg tablet 0.1 mg PO TID 08/02/20 doxazosin 2 mg tablet 4 mg PO BID tab 08/02/20 hydralazine 100 mg tablet 100 mg PO TID tab 08/02/20 loratadine 10 mg tablet 10 mg PO DAILY 08/02/20 melatonin 5 mg tablet 5 mg PO HS PRN 08/02/20 Minoxidil [Loniten] 2.5 mg PO DAILY 09/22/20 Surgical History: Surgical History (Last Reviewed 09/29/20 @ 16:[address] Elizabeth Heart DO) Hx of CABG (Chronic) Onset Date: ~04/12/17 Z95.1 CARTY to LAD, SVG to PDA, SVG to OM 04/12/2017 @ [facility]; Hx of arthroscopy Z98.890 knee, hip hx femur surgery Hx right femur surgery with retained hardware History of open reduction and internal fixation (ORIF) procedure Z98.890 Left wrist, hip Surgical History: arthroscopy, knee, coronary bypass surgery, total hip arthroplasty, total knee arthroplasty, - - Wrist surgery, glaucoma surgery, femur surgery with retained hardware (surgeon Dr. Ryan Peguero [phone]) Psychiatric History: No pertinent psych hx Lives: Spouse/ Significant Other Smoking Status: Never smoker Alcohol: None Drugs: None - *Family History Paternal Family History: Family History (Last Reviewed 09/29/20 @ 16:[address] Elizabeth Heart DO) Father CAD (coronary artery disease) Mother CAD (coronary artery disease) History Items: Heart Disease Maternal Family History: Family History (Last Reviewed 09/29/20 @ 16:[address] Elizabeth Heart DO) Father CAD (coronary artery disease) Mother CAD (coronary artery disease) History Items: Heart Disease Review of Systems Constitutional: Reports: Weakness, Weight Change. Denies: Anorexia, Chills, Fever, Night Sweats, Malaise, Fatigue Eyes: Denies: Blurred vision, Cataracts, Conjunctivae Inflammation, Double vision, Drainage, Eyelid Inflammation, Pain, Redness, Vision Change HEENT: Denies: Difficulty Hearing, Difficulty Swallowing, Ear Pain, Eye Pain, Head Aches, Nasal bleeding, Nasal Congestion, Post Nasal Drip, Sinus Congestion, Sinus Drainage, Sore Throat, Visual Changes Cardiovascular: Reports: Edema - Lateral lower extremity. Denies: Chest Pain, Claudication, Chest Pressure, Chest Tightness, Heaviness, Light Headedness, Orthopnea, Palpitations, Paroxysmal Noc. Dyspnea, Syncope Respiratory: Reports: Shortness of Breath, Shortness of breath upon exertion. Denies: Cough, Hemoptysis, Pleuritic Pain, Shortness of breath at rest, Sputum production, Wheezing Gastrointestinal: Reports: - - Mild abdominal swelling. Denies: Abdominal Pain, Constipation, Diarrhea, Dyspepsia, Hematemesis, Hematochezia, Nausea, Melena Genitourinary: Reports: Hesitancy, Retention. Denies: Dysuria, Frequency, Hematuria, Incontinence, Nocturia, Urgency Musculoskeletal: Reports: Leg Pain. Denies: Back Pain, Joint Pain, Joint stiffness, Joint swelling, Joint Tenderness, Muscle pain, Neck Pain Skin: Denies: Dryness, Jaundice, Lesions, Pruritis, Rash, Skin Changes, Wounds Neurological: Denies: Balance problems, Blurred vision, Double vision, Slurred speech, Confusion, Difficulty swallowing, Focal weakness, Headaches, Incoordination, Numbness, Tingling, Tremor, Seizures Psychiatric: Denies: Anxiety, Depression Endocrine: Denies: Change in Body Habitus, Heat/ Cold Intolerance, Polydipsia, Polyuria Hematologic/ Lymphatic: Denies: Adenopathy, Anemia, Easy Bruising, Easy Bleeding, Petechiae, Purpura VTE Information - Inpt Only VTE Present on Admission: No VTE Mechan Device Prophylaxis: SCD's VTE Pharm Prophylaxis ordered?: Yes Patient Problems: Active and Suspected Problems (Last Reviewed 08/02/20 @ 13:47 by Florencia Maldonado) Acute kidney injury superimposed on chronic kidney disease (Acute) - Physical Exam Vitals/I&O's: Vital Signs Temp Pulse Resp BP Pulse Ox 97.4 F L 61 18 177/63 H 91 09/29/20 13:13 09/29/20 15:18 09/29/20 15:18 09/29/20 15:18 09/29/20 13:13 Oxygen Flow Rate (L/min) 2 Oxygen Delivery Method Nasal Cannula Weight: 93.894 kg Body Mass Index (BMI) 29.7 Finger Stick Blood Glucose 210 General: Alert, Oriented x3, Cooperative, No apparent distress, Well developed, Well nourished, - - Very pleasant upper middle-aged white male lying in bed, appears older than stated age, appears comfortable HEENT: Atraumatic, PERRLA, EOMI, Normocephalic, EAC Clear Oral: Moist Mucosa, No Gingival or Mucosal Lesions/ Ulcerations, - - Poor dentition, Mallampati 2 Neck: Supple, Negative Carotid Bruits, Negative Hepatojugular Reflux, No Nodes, No Nuchal Rigidity, Trachea Midline, Thyroid Normal Size and Texture, JVD, Bilateral Lungs: Clear to auscultation, No rhonchi, No wheeze, Rales - Bilateral bases, - - Mild dyspnea with conversation Cardiovascular: Regular rate, Regular Rhythm, Normal S1, Normal S2, No murmurs, No Ectopic Activity, No rub noted, No Gallop Abdomen: Bowel Sounds Present, Soft, Non Tender, Distended - Mild, No hernias noted, - - No fluid wave Extremities: No clubbing, No cyanosis, Capillary Refill Less than 3 Seconds, Edema - 2-3+ pitting edema bilateral lower extremities that extends up into his thighs, Peripheral Pulses Normal Skin: No rashes, No breakdown Musculoskeletal: No Tenderness to Palpation of Joints or Extremities, No Muscle Wasting, Arthritic Changes Lymphatic: No Cervical, Supraclavicular, or Inguinal Adenopathy Neurological: Cranial nerves II-XII grossly intact, Deep Tendon Reflexes 2+/4 and Symmetrical, Neuro grossly intact, Motor Exam 5/5 strength throughout, Muscle tone normal, Sensory exam intact to light touch and pain, Coordination normal Psych/Mental Status: Normal Affect, Appropriate, - - Very pleasant Laboratory Results 09/29/20 14:25: WBC 8.0, RBC 3.47 L, Hgb 9.8 L, Hct 30.9 L, MCV 89.0, MCH 28.2, MCHC 31.7 L, RDW Std Deviation 51.9 H, RDW Coeff of Yuri 16.3 H, Plt Count 183, MPV 9.5, Immature Gran % (Auto) 0.400, Neut % (Auto) 79.4 H, Lymph % (Auto) 6.0 L, Baxter % (Auto) 11.7 H, Eos % (Auto) 2.1, Baso % (Auto) 0.4, Absolute Neuts (auto) 6.3, Absolute Lymphs (auto) 0.48 L, Nucleated RBC % 0, Differential Comment SCANNED, Hypochromasia 3+, Target Cells 2+, Acanthocytes (Spur) 1+, Schistocytes RARE 09/29/20 14:25: Sodium 134 L, Potassium 4.2, Chloride 98, Carbon Dioxide 28.0, Anion Gap 8, BUN 128 H*, Creatinine 5.25 H, Estim Creat Clear Calc 15.06, Est GFR (MDRD) Af Amer 14 L, Est GFR (MDRD) Non-Af 12 L, BUN/Creatinine Ratio 24.4 H, Glucose 245 H, Calcium 9.2, Total Bilirubin 0.60, AST 20, ALT 24, Alkaline Phosphatase 172 H, Troponin I 0.097 H, Total Protein 6.7, Albumin 2.8 L, Globulin 3.9, Albumin/Globulin Ratio 0.7 L 09/29/20 14:25: B-Natriuretic Peptide 1941.2 H Assessment/Plan All Active Problems (Last Reviewed 08/02/20 @ 13:47 by Florencia Maldonado) Acute kidney injury superimposed on chronic kidney disease (Acute) Lethargy (Resolved) GARRET (acute kidney injury) (Acute) Hyperkalemia (Acute) Cervical myofascial strain (Resolved) Generalized weakness (Resolved) Leg edema (Acute) Neck muscle strain (Resolved) Acute volume overload secondary to CKD -Discussed the case with nephrology--> will plan for tunneled dialysis placement and initiation of dialysis tomorrow -Dr. Schulz consulted for tunneled dialysis catheter placement -Coagulation studies in the a.m. -Continue diuretics as ordered at home for now -I's and O's -Daily body weight -Nephrology consult Mild hypoxic respiratory insufficiency -Should resolve with volume removal -Continue supplemental oxygen as needed Mild hyponatremia -Related to hypervolemia -HD to initiate Chronic normocytic anemia -Suspect related to chronic renal disease -No current need for EPO -Trend hemoglobin DM-2 -Continue Lantus 15 units nightly -SSI-moderate dose -BGT before meals and at bedtime -Check hemoglobin A1c--> was 8.5 on 07/23/2019 -Adjust insulin regimen as needed Secondary hyperparathyroidism -Medical management per nephrology Hypertension -Continue diuretics -Continue carvedilol 25 mg p.o. twice daily -Continue clonidine 0.1 mg 3 times daily -Continue hydralazine 100 mg 3 times daily -Continue minoxidil 2.5 mg daily Hyperlipidemia -Continue statin CAD status post CABG in 2017 -Continue home aspirin -Continue medical management and modulation of risk factors HFrEF-decompensated -Continue diuretics -Start hemodialysis BPH -Continue Cardura -Continue finasteride DVT prophylaxis -Heparin 3 times daily subcu CODE STATUS -Full code Inpatient E&M: 67978 Init Hosp L3
--- NOTE | 2020-09-29 15:57 | NURSING ---
MED SURG MATILDA ACUTE ON CHRONIC KIDNEY DISEASE, CHF
[2020-09-29 17:56] LABS: Bedside Glucose 241 mg/dL (70-110)
[2020-09-29] MEDS: cloNIDine HCl 0.1 MG Tablet PO (21:50)
[2020-09-29] MEDS: hydrALAZINE 50 MG Tablet 100 MG PO (21:51)
[2020-09-29] MEDS: Atorvastatin Calcium 40 MG Tablet PO (21:51)
[2020-09-29] MEDS: Carvedilol 25 MG Tablet PO (21:52)
[2020-09-29] MEDS: Heparin Injection (Vial) 5,000 UNIT/ML VIAL 5000 UNIT SC (21:53)
[2020-09-29] MEDS: Latanoprost 0.005% 1 Bottle 1 DRP EACH EYE (21:58)
[2020-09-29] MEDS: Insulin Lispro 100 UNIT/ML INSULN.PEN SC (22:00)
[2020-09-29] MEDS: Acetaminophen 325 MG Tablet 650 MG PO (22:08)
[2020-09-29] MEDS: MELATONIN 10 MG TABLET 5 MG PO (23:33)
[2020-09-30] VITALS (16 sets, daily range): BP systolic 117–166; BP diastolic 45–80; PULSE 52–61; RESP 14–18; TEMP 36.3–36.7; O2SAT 90–98; BMI 30.7; BMI 29.7
[2020-09-30 00:21] LABS: Bedside Glucose 244 mg/dL (70-110)
[2020-09-30] MEDS: cloNIDine HCl 0.1 MG Tablet PO ×2 (06:00→22:22)
[2020-09-30] MEDS: hydrALAZINE 50 MG Tablet 100 MG PO ×2 (06:00→22:21)
[2020-09-30 06:05] LABS: Bedside Glucose 108 mg/dL (70-110)
[2020-09-30 06:09] LABS: Absolute Lymphocyte Count 0.48 X10^3/uL (0.83-4.51); Absolute Neutrophil Count 4.7 X10^3/uL (2.0-7.7); Basophil# 0.02 X10^3/uL; Basophil% 0.3 % (0-1); Eosinophil# 0.18 X10^3/uL; Hematocrit 30.6 % (40-54); Hemoglobin 9.7 g/dL (13.0-16.5); Lymphocyte # 0.48 X10^3/ul (4.0); Lymphocyte % 7.9 % (19-41); Mean Corp Hgb Conc 31.7 g/dL (32-36); Mean Corpuscular Hgb 28.3 pg (27.0-32.0); Mean Corpuscular Volume 89.2 fL (80-94); Mean Platelet Vol. 9.6 fl (6.2-12.0); Monocyte# 0.73 X10^3/uL; NRBC Flagged by Analyzer 0 % (0-5); Neutrophil # 4.66 X10^3/uL (2.7-7.7); Neutrophil % 76.5 % (47-70); POSITIVE DIFFERENTIAL YES; Platelet Count 191 K/mm3 (150-450); RBC Distribution Width CV 16.2 % (11.6-14.6); RBC Distribution Width SD 51.7 fl (35.1-43.9); Red Blood Count 3.43 M/mm3 (4.6-6.2); White Blood Count 6.1 K/mm3 (4.4-11.0)
[2020-09-30 06:18] LABS: Differential Indicated SCAN CRITERIA MET
[2020-09-30 06:23] LABS: International Normalized Ratio 1.2; Partial Thromboplast Time 29.3 Seconds (24.1-36.2); Prothrombin Time (Protime)PT. 14.6 SECONDS (11.7-14.9)
[2020-09-30 06:36] LABS: Acanthocytes RARE; Differential Comment SCANNED; Ovalocyte 1+; Schistocytes RARE
[2020-09-30 06:37] LABS: Hypochromasia 1+; Microcytosis 1+
[2020-09-30 07:05] LABS: ALB/GLOB Ratio 0.7 RATIO (0.9-2.4); AST(SGOT) 22 U/L (15-37); Alanine Aminotransfer ALT/SGPT 25 U/L (16-61); Albumin, Serum 2.7 g/dL (3.2-5.0); Alkaline Phosphatase 163 U/L (45-117); Anion Gap 8 (5-15); BUN 131 mg/dL (7-18); BUN/Creat Ratio 24.5 RATIO (10-20); Chloride 99 mmol/L (98-107); Creatinine, Serum 5.34 mg/dL (0.70-1.30); EST Glomerular Filtration Rate 12 mL/min (>60); Est Glom Filt Rate - Afr Amer 14 mL/min (>60); Estimated Creatinine Clearance 14.81 ml/min; Globulin 3.7 g/dL (2.2-4.2); Glucose 117 mg/dL (74-106); Magnesium 2.6 mg/dL (1.6-2.6); Phosphorus 6.9 mg/dL (2.5-4.9); Potassium 4.2 mmol/L (3.5-5.1); Protein, Total 6.4 g/dL (6.4-8.2); Sodium Level 134 mmol/L (136-145)
[2020-09-30 07:27] LABS: Hemoglobin A1c 7.6 % (3.8-5.6)
--- NOTE | 2020-09-30 08:15 | PCM.CONS.GEN ---
Reason for Consult Date of Consultation: 09/30/20 History of Present Illness: The patient is a 64 year old M present to the ER due to lower extremity edema has been ongoing for about a month. Patient's labs are consistent with acute on chronic kidney failure. Patient did have pain at mapping for plan of work-up for fistula. Patient is never had dialysis previously.Patient denies any chronic abdominal pain/cough Past Medical History Past Medical History (Chronic Problems): Chronic Problems (Last Reviewed 09/29/20 @ 16:[address] Elizabeth Heart DO) Pure hypercholesterolemia (Chronic) Ischemic cardiomyopathy (Chronic) Essential hypertension (Chronic) Leg swelling (Chronic) Overweight (BMI 25.0-29.9) (Chronic) Ankylosing spondylitis (Chronic) Renal insufficiency (Chronic) Hx of CABG (Chronic ~04/12/17) CARTY to LAD, SVG to PDA, SVG to OM 04/12/2017 @ [facility]; Ventricular tachyarrhythmia (Chronic) Atherosclerosis of atka coronary artery of atka heart without angina pectoris (Chronic) S/P surgery with CARTY to LAD, SVG to OM system, and SVG to PDA in March 2017 at [facility]; DM2 (diabetes mellitus, type 2) (Chronic) Gout (Chronic) Diabetes mellitus with neuropathy (Chronic) Abscess of right foot (Chronic) CHF (congestive heart failure) (Chronic) NSTEMI (non-ST elevated myocardial infarction) (Chronic) Valvular heart disease (Chronic) Cardiomyopathy (Chronic) Pulmonary HTN (Chronic) Medical History: Medical History (Last Reviewed 09/29/20 @ 16:[address] Elizabeth Heart DO) Pure hypercholesterolemia (Chronic) E78.00 Ischemic cardiomyopathy (Chronic) I25.5 Essential hypertension (Chronic) I10 Leg swelling (Chronic) M79.89 Leg edema (Acute) R60.0 Overweight (BMI 25.0-29.9) (Chronic) E66.3 Ankylosing spondylitis (Chronic) M45.9 Renal insufficiency (Chronic) N28.9 Ventricular tachyarrhythmia (Chronic) I47.2 Atherosclerosis of atka coronary artery of atka heart without angina pectoris (Chronic) I25.10 S/P surgery with CARTY to LAD, SVG to OM system, and SVG to PDA in March 2017 at [facility]; DM2 (diabetes mellitus, type 2) (Chronic) E11.9 Gout (Chronic) M10.9 Diabetes mellitus with neuropathy (Chronic) E11.40 Abscess of right foot (Chronic) L02.611 CHF (congestive heart failure) (Chronic) I50.9 NSTEMI (non-ST elevated myocardial infarction) (Chronic) I21.4 Valvular heart disease (Chronic) Cardiomyopathy (Chronic) I42.9 Pulmonary HTN (Chronic) I27.2 Acute systolic heart failure I50.21 Biliary pleural effusion J90 Bradycardia R00.1 CAD (coronary artery disease) (Inactive) I25.10 HTN (hypertension) (Inactive) I10 Allergies pregabalin [From Lyrica] Allergy (Verified 09/29/20 13:13) Angioedema Home Medications: Ambulatory Orders Medication Instructions Recorded Insulin Detemir [Levemir] 15 unit SQ DINNER 06/03/18 Latanoprost 0.005% [Xalatan 1 drp EACH EYE QHS 06/03/18 Opthalmic] Tadalafil [Cialis] 60 mg PO PRN PRN 06/03/18 Multivitamin with Minerals 2 tab PO DAILY 03/21/19 [Multiple Vitamin] finasteride 5 mg tablet 5 mg PO DAILY 05/06/19 metolazone 2.5 mg tablet 2.5 mg PO PRN PRN tab 11/06/19 calcitriol 0.5 mcg capsule 0.5 mcg PO DAILY 08/02/20 clonidine HCl 0.1 mg tablet 0.1 mg PO TID 08/02/20 hydralazine 100 mg tablet 100 mg PO TID tab 08/02/20 melatonin 5 mg tablet 5 mg PO HS PRN 08/02/20 Minoxidil [Loniten] 2.5 mg PO DAILY 09/22/20 Acetaminophen [Tylenol Extra 1,000 mg PO DAILY PRN 09/29/20 Strength] Aspirin E.C. [Ecotrin] 81 mg PO DAILY@0800 09/29/20 Atorvastatin Calcium [Lipitor] 40 mg PO QHS 09/29/20 Bumetanide 2 mg PO DAILY 09/29/20 Carvedilol 25 mg PO BID 09/29/20 Doxazosin Mesylate [Cardura] 4 mg PO DAILY 09/29/20 Surgical History: Surgical History (Last Reviewed 09/29/20 @ 16:[address] Elizabeth Heart DO) Hx of CABG (Chronic) Onset Date: ~04/12/17 Z95.1 CARTY to LAD, SVG to PDA, SVG to OM 04/12/2017 @ [facility]; Hx of arthroscopy Z98.890 knee, hip hx femur surgery Hx right femur surgery with retained hardware History of open reduction and internal fixation (ORIF) procedure Z98.890 Left wrist, hip Surgical History: arthroscopy, knee, coronary bypass surgery, total hip arthroplasty, total knee arthroplasty, - - Wrist surgery, glaucoma surgery, femur surgery with retained hardware (surgeon Dr. Ryan Peguero [phone]) Psychiatric History: No pertinent psych hx Lives: Spouse/ Significant Other Smoking Status: Never smoker Alcohol: None Drugs: None - *Family History Paternal Family History: Family History (Last Reviewed 09/29/20 @ 16:[address] Elizabeth Heart DO) Father CAD (coronary artery disease) Mother CAD (coronary artery disease) History Items: Heart Disease Maternal Family History: Family History (Last Reviewed 09/29/20 @ 16:[address] Elizabeth Heart DO) Father CAD (coronary artery disease) Mother CAD (coronary artery disease) History Items: Heart Disease Review of Systems Constitutional: Denies: Anorexia Eyes: Denies: Blurred vision HEENT: Denies: Difficulty Swallowing Cardiovascular: Denies: Chest Pain Respiratory: Denies: Cough Gastrointestinal: Denies: Abdominal Pain, Constipation, Nausea Genitourinary: Denies: Dysuria Skin: Denies: Jaundice Psychiatric: Denies: Anxiety, Depression Hematologic/ Lymphatic: Denies: Easy Bleeding Patient Problems: Active and Suspected Problems (Last Reviewed 09/29/20 @ 16:[address] Elizabeth Heart DO) Acute kidney injury superimposed on chronic kidney disease (Acute) GARRET (acute kidney injury) (Acute) Hyperkalemia (Acute) Leg edema (Acute) - Physical Exam Vitals/I&O's: Vital Signs Temp Pulse Resp BP Pulse Ox 97.9 F 61 14 141/77 H 90 09/30/20 03:00 09/30/20 06:00 09/30/20 03:00 09/30/20 03:00 09/30/20 07:20 Oxygen Flow Rate (L/min) 2 Oxygen Delivery Method Nasal Cannula Weight: 213 lb 12.8 oz Body Mass Index (BMI) 30.7 Finger Stick Blood Glucose 210 Intake and Output for Last 24 Hours 09/28/20 09/29/20 09/30/20 23:59 23:59 23:59 Intake Total 240 / 240 Output Total 350 / 350 Balance 240 / 240 -350 / -350 General: Alert, Oriented x3, Cooperative, No apparent distress HEENT: Atraumatic Neck: Supple Lungs: Normal air movement Cardiovascular: Regular rate Abdomen: Soft, Non Tender, Non-Distended Extremities: Edema - Min wraps bilaterally Neurological: Cranial nerves II-XII grossly intact Psych/Mental Status: Normal Affect Laboratory Results 09/29/20 14:25: WBC 8.0, RBC 3.47 L, Hgb 9.8 L, Hct 30.9 L, MCV 89.0, MCH 28.2, MCHC 31.7 L, RDW Std Deviation 51.9 H, RDW Coeff of Yuri 16.3 H, Plt Count 183, MPV 9.5, Immature Gran % (Auto) 0.400, Neut % (Auto) 79.4 H, Lymph % (Auto) 6.0 L, Gordon % (Auto) 11.7 H, Eos % (Auto) 2.1, Baso % (Auto) 0.4, Absolute Neuts (auto) 6.3, Absolute Lymphs (auto) 0.48 L, Nucleated RBC % 0, Differential Comment SCANNED, Hypochromasia 3+, Target Cells 2+, Acanthocytes (Spur) 1+, Schistocytes RARE 09/29/20 14:25: Sodium 134 L, Potassium 4.2, Chloride 98, Carbon Dioxide 28.0, Anion Gap 8, BUN 128 H*, Creatinine 5.25 H, Estim Creat Clear Calc 15.06, Est GFR (MDRD) Af Amer 14 L, Est GFR (MDRD) Non-Af 12 L, BUN/Creatinine Ratio 24.4 H, Glucose 245 H, Calcium 9.2, Total Bilirubin 0.60, AST 20, ALT 24, Alkaline Phosphatase 172 H, Troponin I 0.097 H, Total Protein 6.7, Albumin 2.8 L, Globulin 3.9, Albumin/Globulin Ratio 0.7 L 09/29/20 14:25: B-Natriuretic Peptide 1941.2 H 09/29/20 17:43: POC Glucose 241 H 02/03/21 21:48: POC Glucose 244 H 09/30/20 05:40: PT 14.6, INR 1.2, APTT 29.3 09/30/20 05:40: Hemoglobin A1c 7.6 H 09/30/20 05:40: WBC 6.1, RBC 3.43 L, Hgb 9.7 L, Hct 30.6 L, MCV 89.2, MCH 28.3, MCHC 31.7 L, RDW Std Deviation 51.7 H, RDW Coeff of Yuri 16.2 H, Plt Count 191, MPV 9.6, Immature Gran % (Auto) 0.300, Neut % (Auto) 76.5 H, Lymph % (Auto) 7.9 L, Gordon % (Auto) 12.0 H, Eos % (Auto) 3.0, Baso % (Auto) 0.3, Absolute Neuts (auto) 4.7, Absolute Lymphs (auto) 0.48 L, Nucleated RBC % 0, Differential Comment SCANNED, Hypochromasia 1+, Microcytosis 1+, Ovalocytes 1+, Acanthocytes (Spur) RARE, Schistocytes RARE 09/30/20 05:40: Sodium 134 L, Potassium 4.2, Chloride 99, Carbon Dioxide 27.0, Anion Gap 8, BUN 131 H*, Creatinine 5.34 H, Estim Creat Clear Calc 14.81, Est GFR (MDRD) Af Amer 14 L, Est GFR (MDRD) Non-Af 12 L, BUN/Creatinine Ratio 24.5 H, Glucose 117 H, Calcium 9.0, Phosphorus 6.9 H, Magnesium 2.6, Total Bilirubin 0.50, AST 22, ALT 25, Alkaline Phosphatase 163 H, Total Protein 6.4, Albumin 2.7 L, Globulin 3.7, Albumin/Globulin Ratio 0.7 L 09/30/20 05:58: POC Glucose 108 Current Medications Acetaminophen (Acetaminophen 325 Mg Tablet) 650 mg PO Q6H PRN PRN PRN Reason: Pain Score 1-10/Temp > 100.7 F Last Admin: 09/29/20 22:08 Dose: 650 mg Documented by: Al Hydroxide/Mg Hydroxide (Mag Hydrox/Al Hydrox/Simeth 30 Ml Udc) 30 ml PO Q6H PRN PRN PRN Reason: Gastric Burning Albuterol Sulfate (Albuterol 2.5 Mg/3 Ml Vial.Neb.) 2.5 mg INHALATION Q2H PRN PRN PRN Reason: SOB/Wheezing Aspirin (Aspirin E.C. 81 Mg Tablet) 81 mg PO DAILY@0800 [facility] Atorvastatin Calcium (Atorvastatin Calcium 40 Mg Tablet) 40 mg PO QHS [facility] Last Admin: 09/29/20 21:51 Dose: 40 mg Documented by: Bumetanide (Bumetanide 2 Mg Tablet) 2 mg PO DAILY [facility] Calcitriol (Calcitriol 0.25 Mcg Capsule) 0.5 mcg PO DAILY [facility] Carvedilol (Carvedilol 25 Mg Tablet) 25 mg PO BID [facility] Last Admin: 09/29/20 21:52 Dose: 25 mg Documented by: Clonidine (Clonidine Hcl 0.1 Mg Tablet) 0.1 mg PO TID [facility] Last Admin: 09/30/20 06:00 Dose: 0.1 mg Documented by: Doxazosin Mesylate (Doxazosin 4 Mg Tablet) 4 mg PO DAILY [facility] Finasteride (Finasteride 5 Mg Tablet) 5 mg PO DAILY [facility] Heparin Sodium (Porcine) (Heparin Injection (Vial) 5,000 Unit/Ml Vial) 5,000 unit SC Q8 [facility] Last Admin: 09/30/20 06:00 Dose: Not Given Documented by: Hydralazine HCl (Hydralazine 50 Mg Tablet) 100 mg PO TID [facility] Last Admin: 09/30/20 06:00 Dose: 100 mg Documented by: Influenza Virus Vaccine Quadrival (Influenza Vaccine (6mos+)/Pf 0.5 Ml Syringe) 0.5 ml IM .ONCE ONE Stop: 09/30/20 10:01 Insulin Glargine (Insulin Glargine 100 Units/Ml Pen) 15 units SC DINNER [facility] Last Admin: 09/29/20 17:46 Dose: 15 units Documented by: Insulin Human Lispro (Insulin Lispro 100 Unit/Ml Insuln.Pen) 0 unit SC ACHS [facility]; Protocol Last Admin: 09/30/20 06:01 Dose: Not Given Documented by: Latanoprost (Latanoprost 0.005% 1 Bottle) 1 drop EACH EYE QHS [facility] Last Admin: 09/29/20 21:58 Dose: 1 drop Documented by: Melatonin (Melatonin 10 Mg Tablet) 5 mg PO QHS [facility] Last Admin: 09/29/20 23:33 Dose: 5 mg Documented by: Minoxidil (Minoxidil 2.5 Mg Tablet) 2.5 mg PO DAILY [facility] Ondansetron HCl (Ondansetron 4 Mg/2 Ml Vial) 4 mg IV Q8H PRN PRN PRN Reason: NAUSEA/VOMITING Sodium Chloride (0.9% Saline Lock 10 Ml Syringe) 10 - 40 ml IV UD PRN PRN Reason: SALINE FLUSH Assessment/Plan All Active Problems (Last Reviewed 09/29/20 @ 16:[address] Elizabeth Heart, DO) Acute kidney injury superimposed on chronic kidney disease (Acute) Lethargy (Resolved) GARRET (acute kidney injury) (Acute) Hyperkalemia (Acute) Cervical myofascial strain (Resolved) Generalized weakness (Resolved) Leg edema (Acute) Neck muscle strain (Resolved) 64-year-old male with acute on chronic kidney failure 1. We will plan to place a tunneled dialysis catheter right IJ about 1 PM today. Discussed the procedure including risks including but not limited to bleeding, infection, malfunction of the catheter. Patient no further question this time. Renetta Seymour M.D. Pager: [phone] [facility] [address] [place] [address], [address] [place] [address] Office: [phone] Procedure Criteria Procedure Type: Elective COVID Risk Discussion: The surgeon/proceduralist and patient have discussed in detail the risk of exposure to and/or potential harm posed by the COVID-19 virus with having a surgery/procedure at this time versus the risk of delaying the surgery/procedure. It is not possible to know either the risk of delaying the surgery or procedure or chance of getting an infection with perfect accuracy, but a joint decision was made between the patient and the surgeon/proceduralist to proceed at this time with the scheduled surgery/procedure as indicated on the consent form. Inpatient E&M: 33993 Init Hosp L2
[2020-09-30] MEDS: Carvedilol 25 MG Tablet PO (10:11)
--- NOTE | 2020-09-30 10:55 | CASEMGMT ---
SULTANA AMBROSIO assessment: Face to Face with patient for initial transition planning/care coordination assessment. RN HEBERT introduced self and role at [facility], pt voices understanding and consents to assessment at this time. Pt is sitting up in bed in no distress at this time. Pt is on 2L nc and respirations are easy/non-labored at this time. Pt is A/Ox4 at this time and answers all questions appropriately at this time. Pt is scheduled to have tunnel catheter placed later today and per nephro, needs set up for OP dialysis at this time. Pt declines list of OP dialysis centers at this time as he states he already knows he wants [facility] at this time. Care providers, pharmacy, and demographics verified at this time. Presentation: Sent in by nephro for retaining fluid, left leg pain. Admitting dx: Acute on chronic kidney disease PCP: Lluvia Specialists: cherise Mcfadden; Oswaldo cardio Preferred Pharmacy: [facility] Insurance: [facility] Prescription Benefit: JONI Living Will/HPOA: Pt states does not have LW/HPOA at this time and declines AD info at this time. LNOK: Yun Nuñez, Living Arrangements: Pt states lives with and adult daughter on main level of 2 story home and states no concerns at home at this time. Pt states is indepedent with ADL's. Transportation: Pt states drives and states no transportation concerns at this time. DME/HHC: Pt states has the following DME: walker, hearing aides, and shower chair. Pt states no need for any further DME at this time. Pt states has had HHC in the past and states no hx of SNF in the past. Pt states would like dialysis set up for MWF late morning or early afternoon at [facility]. Pt states no concerns with going home at time of discharge. Pt states is on disability. Pt states does not smoke or drink ETOH. Pt states no further concerns/needs at this time. CM to follow for any further discharge planning/needs. Advised pt to ask for CM if any further questions/concerns/needs arise, voices understanding. Pt Goal: Home Plan: Home w/ OP dialysis set up. [place] SULTANA AMBROSIO
--- NOTE | 2020-09-30 10:58 | PN_ITS ---
Patient Problems: Active and Suspected Problems (Last Reviewed 09/29/20 @ 16:[address] Elizabeth Heart, DO) Acute kidney injury superimposed on chronic kidney disease (Acute) GARRET (acute kidney injury) (Acute) Hyperkalemia (Acute) Leg edema (Acute) Subjective: Patient states he is about the same. Denies any increased difficulty with b reathing. Reports that he was told he is getting to his dialysis catheter today at 1 PM and then will likely start dialysis after this afternoon. States his will be here at 1-2 and would like to talk to physician. I told him I would return later this afternoon to discuss things with her. Vitals/I&O's: Vital Signs Temp Pulse Resp BP Pulse Ox 98.1 F 58 L 14 162/68 H 96 09/30/20 08:34 09/30/20 08:34 09/30/20 08:34 09/30/20 08:34 09/30/20 08:34 Oxygen Flow Rate (L/min) 2 Oxygen Delivery Method Nasal Cannula Weight: 96.978 kg Body Mass Index (BMI) 30.7 Finger Stick Blood Glucose 210 Intake and Output for Last 24 Hours 09/28/20 09/29/20 09/30/20 23:59 23:59 23:59 Intake Total 240 / 240 Output Total 350 / 350 Balance 240 / 240 -350 / -350 General: Alert, Oriented x3, Cooperative, No apparent distress, Well developed, Well nourished, - - Upper middle-aged white male sitting up in bed, appears older than stated age, appears comfortable, watching television HEENT: Atraumatic, PERRLA, EOMI, Normocephalic, EAC Clear Oral: Moist Mucosa, No Gingival or Mucosal Lesions/ Ulcerations Neck: Supple, No JVD, Trachea Midline Lungs: No rhonchi, No wheeze, Diminished - Bilateral bases, Rales - New scattered, - - No acute respiratory distress no accessory muscle use Cardiovascular: Regular rate, Regular Rhythm, Normal S1, Normal S2, No murmurs, No Ectopic Activity, No rub noted, No Gallop Abdomen: Bowel Sounds Present, Soft, Non Tender, Non-Distended, No Hepato- splenomegaly, Obese Extremities: No clubbing, No cyanosis, Capillary Refill Less than 3 Seconds, Edema - 3+ pitting edema bilateral lower extremities improved with Min bandages, Peripheral Pulses Normal Skin: No rashes, No breakdown Musculoskeletal: No Tenderness to Palpation of Joints or Extremities, No Muscle Wasting, Arthritic Changes Lymphatic: No Cervical, Supraclavicular, or Inguinal Adenopathy Neurological: Cranial nerves II-XII grossly intact, Neuro grossly intact, Muscle tone normal, Coordination normal Psych/Mental Status: Normal Affect, Appropriate Microbiology Past 72 Hours 09/30/20 06:50 Mucosa - Nose SARS-CoV-2 Antigen (Rapid) - Final Laboratory Results 09/29/20 14:25: WBC 8.0, RBC 3.47 L, Hgb 9.8 L, Hct 30.9 L, MCV 89.0, MCH 28.2, MCHC 31.7 L, RDW Std Deviation 51.9 H, RDW Coeff of Yuri 16.3 H, Plt Count 183, MPV 9.5, Immature Gran % (Auto) 0.400, Neut % (Auto) 79.4 H, Lymph % (Auto) 6.0 L, Vernon % (Auto) 11.7 H, Eos % (Auto) 2.1, Baso % (Auto) 0.4, Absolute Neuts (au to) 6.3, Absolute Lymphs (auto) 0.48 L, Nucleated RBC % 0, Differential Comment SCANNED, Hypochromasia 3+, Target Cells 2+, Acanthocytes (Spur) 1+, Schistocytes RARE 09/29/20 14:25: Sodium 134 L, Potassium 4.2, Chloride 98, Carbon Dioxide 28.0, Anion Gap 8, BUN 128 H*, Creatinine 5.25 H, Estim Creat Clear Calc 15.06, Est GFR (MDRD) Af Amer 14 L, Est GFR (MDRD) Non-Af 12 L, BUN/Creatinine Ratio 24.4 H , Glucose 245 H, Calcium 9.2, Total Bilirubin 0.60, AST 20, ALT 24, Alkaline Phosphatase 172 H, Troponin I 0.097 H, Total Protein 6.7, Albumin 2.8 L, Globulin 3.9, Albumin/Globulin Ratio 0.7 L 09/29/20 14:25: B-Natriuretic Peptide 1941.2 H 09/29/20 17:43: POC Glucose 241 H 09/29/20 21:48: POC Glucose 244 H 09/30/20 05:40: PT 14.6, INR 1.2, APTT 29.3 09/30/20 05:40: Hemoglobin A1c 7.6 H 09/30/20 05:40: WBC 6.1, RBC 3.43 L, Hgb 9.7 L, Hct 30.6 L, MCV 89.2, MCH 28.3, MCHC 31.7 L, RDW Std Deviation 51.7 H, RDW Coeff of Yuri 16.2 H, Plt Count 191, MPV 9.6, Immature Gran % (Auto) 0.300, Neut % (Auto) 76.5 H, Lymph % (Auto) 7.9 L, Vernon % (Auto) 12.0 H, Eos % (Auto) 3.0, Baso % (Auto) 0.3, Absolute Neuts (auto) 4.7, Absolute Lymphs (auto) 0.48 L, Nucleated RBC % 0, Differential Comment SCANNED, Hypochromasia 1+, Microcytosis 1+, Ovalocytes 1+, Acanthocytes (Spur) RARE, Schistocytes RARE 09/30/20 05:40: Sodium 134 L, Potassium 4.2, Chloride 99, Carbon Dioxide 27.0, Anion Gap 8, BUN 131 H*, Creatinine 5.34 H, Estim Creat Clear Calc 14.81, Est GFR (MDRD) Af Amer 14 L, Est GFR (MDRD) Non-Af 12 L, BUN/Creatinine Ratio 24.5 H , Glucose 117 H, Calcium 9.0, Phosphorus 6.9 H, Magnesium 2.6, Total Bilirubin 0.50, AST 22, ALT 25, Alkaline Phosphatase 163 H, Total Protein 6.4, Albumin 2.7 L, Globulin 3.7, Albumin/Globulin Ratio 0.7 L 09/30/20 05:58: POC Glucose 108 Current Medications Acetaminophen (Acetaminophen 325 Mg Tablet) 650 mg PO Q6H PRN PRN PRN Reason: Pain Score 1-10/Temp > 100.7 F Last Admin: 09/29/20 22:08 Dose: 650 mg Documented by: Al Hydroxide/Mg Hydroxide (Mag Hydrox/Al Hydrox/Simeth 30 Ml Udc) 30 ml PO Q6H PRN PRN PRN Reason: Gastric Burning Albuterol Sulfate (Albuterol 2.5 Mg/3 Ml Vial.Neb.) 2.5 mg INHALATION Q2H PRN PRN PRN Reason: SOB/Wheezing Aspirin (Aspirin E.C. 81 Mg Tablet) 81 mg PO DAILY@0800 REPLACED BY [facility] Atorvastatin Calcium (Atorvastatin Calcium 40 Mg Tablet) 40 mg PO QHS REPLACED BY [facility] Last Admin: 09/29/20 21:51 Dose: 40 mg Documented by: Bumetanide (Bumetanide 2 Mg Tablet) 2 mg PO DAILY REPLACED BY [facility] Calcitriol (Calcitriol 0.25 Mcg Capsule) 0.5 mcg PO DAILY REPLACED BY [facility] Carvedilol (Carvedilol 25 Mg Tablet) 25 mg PO BID REPLACED BY [facility] Last Admin: 09/30/20 10:11 Dose: 25 mg Documented by: Clonidine (Clonidine Hcl 0.1 Mg Tablet) 0.1 mg PO TID REPLACED BY [facility] Last Admin: 09/30/20 06:00 Dose: 0.1 mg Documented by: Doxazosin Mesylate (Doxazosin 4 Mg Tablet) 4 mg PO DAILY REPLACED BY [facility] Finasteride (Finasteride 5 Mg Tablet) 5 mg PO DAILY REPLACED BY [facility] Heparin Sodium (Porcine) (Heparin Injection (Vial) 5,000 Unit/Ml Vial) 5,000 unit SC Q8 REPLACED BY [facility] Last Admin: 09/30/20 06:00 Dose: Not Given Documented by: Hydralazine HCl (Hydralazine 50 Mg Tablet) 100 mg PO TID REPLACED BY [facility] Last Admin: 09/30/20 06:00 Dose: 100 mg Documented by: Insulin Glargine (Insulin Glargine 100 Units/Ml Pen) 15 units SC DINNER REPLACED BY [facility] Last Admin: 09/29/20 17:46 Dose: 15 units Documented by: Insulin Human Lispro (Insulin Lispro 100 Unit/Ml Insuln.Pen) 0 unit SC ACHS REPLACED BY [facility]; Protocol Last Admin: 09/30/20 06:01 Dose: Not Given Documented by: Latanoprost (Latanoprost 0.005% 1 Bottle) 1 drop EACH EYE QHS REPLACED BY [facility] Last Admin: 09/29/20 21:58 Dose: 1 drop Documented by: Melatonin (Melatonin 10 Mg Tablet) 5 mg PO QHS REPLACED BY [facility] Last Admin: 09/29/20 23:33 Dose: 5 mg Documented by: Minoxidil (Minoxidil 2.5 Mg Tablet) 2.5 mg PO DAILY REPLACED BY [facility] Ondansetron HCl (Ondansetron 4 Mg/2 Ml Vial) 4 mg IV Q8H PRN PRN PRN Reason: NAUSEA/VOMITING Sodium Chloride (0.9% Saline Lock 10 Ml Syringe) 10 - 40 ml IV UD PRN PRN Reason: SALINE FLUSH STROKE Vital Signs/Narrative: Vital Signs Temp Pulse Resp BP Pulse Ox 09/30/20 08:34 98.1 F 58 L 14 162/68 H 96 09/30/20 07:20 90 09/30/20 07:00 58 L Medical Necessity - Tobacco Use Smoking Status: Never smoker Assessment/Plan All Active Problems (Last Reviewed 09/29/20 @ 16:[address] Elizabeth Heart, DO) Acute kidney injury superimposed on chronic kidney disease (Acute) Lethargy (Resolved) GARERT (acute kidney injury) (Acute) Hyperkalemia (Acute) Cervical myofascial strain (Resolved) Generalized weakness (Resolved) Leg edema (Acute) Neck muscle strain (Resolved) Acute volume overload secondary to CKD stage IV-V -Discussed the case with nephrology--> will plan for tunneled dialysis placement and initiation of dialysis tomorrow -Tunneled dialysis catheter to be placed today at [address] Erickson -Suspect patient will undergo HD today after tunneled dialysis catheter placement -Coagulation studies are within normal limits -Continue home diuretics of Bumex 2 mg daily -I's and O's -Daily body weight -Patient is oliguric -BUN and creatinine are relatively stable -Nephrology consulted Mild hypoxic respiratory insufficiency -Should resolve with volume removal -Continue supplemental oxygen as needed -Patient remained stable on 2 L nasal cannula -Be able to wean after dialysis depending on fluid removal Mild hyponatremia -Related to hypervolemia -HD today after tunneled dialysis catheter placement Chronic normocytic anemia -Suspect related to chronic renal disease -No current need for EPO -Hemoglobin stable DM-2 -Continue Lantus 15 units nightly--> a.m. fasting blood sugar was 117 today -SSI-moderate dose -May need scheduled log once dialysis is initiated and patient clears long- acting insulin a little bit better -BGT before meals and at bedtime -A1c was 7.6--> was 8.5 on 07/23/2019 (patient was anemic on both of these) -Adjust insulin regimen as needed Secondary hyperparathyroidism -Medical management per nephrology Hypertension -Continue diuretics of Bumex 2 mg daily -Continue carvedilol 25 mg p.o. twice daily -Continue clonidine 0.1 mg 3 times daily -Continue hydralazine 100 mg 3 times daily -Continue minoxidil 2.5 mg daily -Antihypertensives may need adjusted with dialysis initiation Hyperlipidemia -Continue statin CAD status post CABG in 2017 -Continue home aspirin -Continue medical management and modulation of risk factors HFrEF-decompensated -Continue diuretics -Start hemodialysis today BPH -Continue Cardura -Continue finasteride DVT prophylaxis -Heparin 3 times daily subcu CODE STATUS -Full code Disposition -HD catheter today with first dialysis this afternoon -Probable HD tomorrow and if tolerates well probable discharge home tomorrow afternoon -Case management is working on outpatient dialysis Inpatient E&M: [id number] Subs Hosp L3
[2020-09-30 11:36] LABS: Bedside Glucose 83 mg/dL (70-110)
[2020-09-30] MEDS: Lactated Ringers 1,000 ML 15 ML IV (12:32)
[2020-09-30] MEDS: Bupiv/Epi 0.25% 30 ML Vial (13:20)
[2020-09-30] MEDS: Lidocaine 1% (5 ml sdv) 5 ML Vial (13:20)
--- NOTE | 2020-09-30 13:51 | PCM.OPRPT ---
Report of Operation Date of Procedure: 09/30/20 Pre-Operative Diagnosis: Acute on chronic renal failure Post-Operative Diagnosis: Same Surgery/Procedure Performed:: Insertion of right IJ tunneled dialysis catheter Type of Anesthesia:: Local MAC Anesthesiologist: Fabrice Gr Special Medications: Ancef 2 g IV x1 Estimated Blood Loss (mL): 10 cc Fluids Replaced: 500 cc Description of Procedure: After informed consent was given, the patient was brought to the operating room and placed in the supine position. Appropriate time out protocol was followed. He was then given IV conscious sedation for anesthesia. The patient's right upper chest and neck were then prepped with a surgical skin preparation and sterile surgical drapes were placed. After proper landmarks were ascertained, the skin at the upper right chest area was then infiltrated with 1:1 mixture of 1% lidocaine with epinephrine and 0.5% maricaine. A needle trocar was then inserted into the right internal jugular vein with ultrasound guidance-multiple vessels were viewed with u/s and the right IJ was chosen-- and there was good aspiration of venous blood. A wire was then threaded into the needle trocar and this was visualized under fluoroscopy to ensure that the wire was in the superior vena cava. Once this was done, then the needle trocar was removed. A small incision was made with an 11 blade knife at the wire entrance site. The dilator x2 with the introducer sheath attached was then placed over the wire into the right internal jugular vein via the Seldinger technique and this was visualized under fluoroscopy. Next the introducer and sheath were in proper position as visualized by fluoroscopy. The location of the cuffed was estimated on the skin, an incision was made with a 15 blade scalpel. The 14.5 Fr x19 cm Palindrome dual lumen (Lot [id number] reference [id number]) was tunneled from the chest incision to the right neck incision. The sheath was removed. The catheter was placed through the introducer and was positioned with its tip at the junction of the superior vena cava and the right atrium as visualized under fluoroscopy. The cuff of the catheter was in the subcutaneous tissue. The catheter flushed and scott well with saline. Catheter was also flushed with 1.6 cc of 1-10,000 of heparin. Hemostasis was assured. Silver dressing was placed at the catheter exit site. Catheter was sutured with 3-0 nylon sutures. The neck incision was sutured with interrupted 3-0 Vicryl interrupted sutures x2 and Steri-Strips were placed. A large OpSite was placed over the catheter site and a small OpSite over the neck incision. The patient tolerated the procedure well. Grafts/Implants Used: 14.5 Fr x19 cm Palindrome dual lumen (Lot [id number] reference [id number]) - Complications none
--- NOTE | 2020-09-30 14:15 | RAD_ITS ---
STUDY: X-RAY CHEST REASON FOR EXAM: Male, 64 years old. DIALYSIS CATH PLACEMENT. TECHNIQUE: Single AP portable view of the chest. COMPARISON: Comparison is made with prior study dated 09/29/2020. FINDINGS: A right-sided hemodialysis catheter is seen. The tip is at the junction of the superior vena cava and right atrium. Mild degree of residual mass or congestion. There is no demonstrated pleural abnormality. Sternal cerclage wires and vascular clips are present from a prior sternotomy and coronary artery bypass graft procedure (CABG). Cardiomegaly. Normal mediastinum and sofi. Normal visualized pulmonary arteries. There is atherosclerotic calcification of the aortic arch with tortuosity. Normal visualized thoracic spine. Normal visualized ribs, clavicles, and shoulders. There is no demonstrated abnormality of the visualized soft tissue structures of the upper abdomen. RAD/CXR for Line Placement IMPRESSION: The tip of the right dialysis catheter is at the junction of the superior vena cava and right atrium. Cardiomegaly and residual mild degree of vascular congestion. Electronically Signed: Enrike Pina MD at 14:32 EST , Service support ,
--- NOTE | 2020-09-30 14:39 | PCM.CONS.R ---
Problem List (1) Acute kidney injury superimposed on chronic kidney disease Status: Acute Consultation - Renal 09/30/20 PCP/ Referring MD: Requesting physician: [] Primary care physician: Dr. Blade Teixeira MD Reason for Consultation:: GARRET - History of Present Illness History of Present Illness: The patient is a 64 year old M well known to our practice. history of CKD 4. recently had significant fluid issues despite being on bumex and metolazone. admitted with fluid overload. scheduled for tunneled dialysis line today. dyspnea + on nasal cannula. ROS negative except above - Allergies Allergies: Allergies pregabalin [From Lyrica] Allergy (Verified 09/29/20 13:13) Angioedema - Current Medications Current Medications: Current Medications Acetaminophen (Acetaminophen 325 Mg Tablet) 650 mg PO Q6H PRN PRN PRN Reason: Pain Score 1-10/Temp > 100.7 F Last Admin: 09/29/20 22:08 Dose: 650 mg Documented by: Al Hydroxide/Mg Hydroxide (Mag Hydrox/Al Hydrox/Simeth 30 Ml Udc) 30 ml PO Q6H PRN PRN PRN Reason: Gastric Burning Albuterol Sulfate (Albuterol 2.5 Mg/3 Ml Vial.Neb.) 2.5 mg INHALATION Q2H PRN PRN PRN Reason: SOB/Wheezing Aspirin (Aspirin E.C. 81 Mg Tablet) 81 mg PO DAILY@0800 [facility] Atorvastatin Calcium (Atorvastatin Calcium 40 Mg Tablet) 40 mg PO QHS [facility] Last Admin: 09/29/20 21:51 Dose: 40 mg Documented by: Bumetanide (Bumetanide 2 Mg Tablet) 2 mg PO DAILY [facility] Calcitriol (Calcitriol 0.25 Mcg Capsule) 0.5 mcg PO DAILY [facility] Carvedilol (Carvedilol 25 Mg Tablet) 25 mg PO BID [facility] Last Admin: 09/30/20 10:11 Dose: 25 mg Documented by: Clonidine (Clonidine Hcl 0.1 Mg Tablet) 0.1 mg PO TID [facility] Last Admin: 09/30/20 06:00 Dose: 0.1 mg Documented by: Doxazosin Mesylate (Doxazosin 4 Mg Tablet) 4 mg PO DAILY [facility] Finasteride (Finasteride 5 Mg Tablet) 5 mg PO DAILY [facility] Heparin Sodium (Porcine) (Heparin Injection (Vial) 5,000 Unit/Ml Vial) 5,000 unit SC Q8 [facility] Last Admin: 09/30/20 06:00 Dose: Not Given Documented by: Hydralazine HCl (Hydralazine 50 Mg Tablet) 100 mg PO TID [facility] Last Admin: 09/30/20 06:00 Dose: 100 mg Documented by: Lactated Ringer's () 1,000 mls @ 15 mls/hr IV .Q48H [facility] Last Admin: 09/30/20 12:32 Dose: 15 mls/hr Documented by: Insulin Glargine (Insulin Glargine 100 Units/Ml Pen) 15 units SC DINNER [facility] Last Admin: 09/29/20 17:46 Dose: 15 units Documented by: Insulin Human Lispro (Insulin Lispro 100 Unit/Ml Insuln.Pen) 0 unit SC ACHS [facility]; Protocol Last Admin: 09/30/20 06:01 Dose: Not Given Documented by: Latanoprost (Latanoprost 0.005% 1 Bottle) 1 drop EACH EYE QHS [facility] Last Admin: 09/29/20 21:58 Dose: 1 drop Documented by: Melatonin (Melatonin 10 Mg Tablet) 5 mg PO QHS [facility] Last Admin: 09/29/20 23:33 Dose: 5 mg Documented by: Minoxidil (Minoxidil 2.5 Mg Tablet) 2.5 mg PO DAILY [facility] Ondansetron HCl (Ondansetron 4 Mg/2 Ml Vial) 4 mg IV Q8H PRN PRN PRN Reason: NAUSEA/VOMITING Sodium Chloride (0.9% Saline Lock 10 Ml Syringe) 10 - 40 ml IV UD PRN PRN Reason: SALINE FLUSH - Past Medical History Past Medical History (Chronic Problems): Chronic Problems (Last Reviewed 09/29/20 @ 16:[address] Elizabeth Heart, DO) Pure hypercholesterolemia (Chronic) Ischemic cardiomyopathy (Chronic) Essential hypertension (Chronic) Leg swelling (Chronic) Overweight (BMI 25.0-29.9) (Chronic) Ankylosing spondylitis (Chronic) Renal insufficiency (Chronic) Hx of CABG (Chronic ~04/12/17) CARTY to LAD, SVG to PDA, SVG to OM 04/12/2017 @ [facility]; Ventricular tachyarrhythmia (Chronic) Atherosclerosis of [place] coronary artery of [place] heart without angina pectoris (Chronic) S/P surgery with CARTY to LAD, SVG to OM system, and SVG to PDA in March 2017 at [facility]; DM2 (diabetes mellitus, type 2) (Chronic) Gout (Chronic) Diabetes mellitus with neuropathy (Chronic) Abscess of right foot (Chronic) CHF (congestive heart failure) (Chronic) NSTEMI (non-ST elevated myocardial infarction) (Chronic) Valvular heart disease (Chronic) Cardiomyopathy (Chronic) Pulmonary HTN (Chronic) - Past Surgical History Surgical History: arthroscopy, knee, coronary bypass surgery, total hip arthroplasty, total knee arthroplasty, - - Wrist surgery, glaucoma surgery, femur surgery with retained hardware (surgeon Dr. Ryan Peguero [phone]) - Social History Smoking Status: Never smoker Alcohol: None Drugs: None - Family History Paternal Family History: Family History (Last Reviewed 09/29/20 @ 16:[address] Elizabeth Heart DO) Father CAD (coronary artery disease) Mother CAD (coronary artery disease) History Items: Heart Disease Maternal Family History: Family History (Last Reviewed 09/29/20 @ 16:[address] Elizabeth Heart DO) Father CAD (coronary artery disease) Mother CAD (coronary artery disease) History Items: Heart Disease Review of Systems Respiratory: Reports: Shortness of Breath Patient Problems: Active and Suspected Problems (Last Reviewed 09/29/20 @ 16:[address] Elizabeth Heart DO) Acute kidney injury superimposed on chronic kidney disease (Acute) GARRET (acute kidney injury) (Acute) Hyperkalemia (Acute) Leg edema (Acute) - Physical Exam Vitals/I&O's: Vital Signs Temp Pulse Resp BP Pulse Ox 97.6 F L 53 L 16 166/75 H 97 09/30/20 14:00 09/30/20 14:30 09/30/20 14:30 09/30/20 14:30 09/30/20 14:30 Oxygen Flow Rate (L/min) 2 Oxygen Delivery Method Room Air Weight: 96.978 kg Body Mass Index (BMI) 30.7 Finger Stick Blood Glucose 210 Intake and Output for Last 24 Hours 09/28/20 09/29/20 09/30/20 23:59 23:59 23:59 Intake Total 240 / 240 Output Total 350 / 350 Balance 240 / 240 -350 / -350 General: Alert, Oriented x3, Cooperative HEENT: Atraumatic, PERRLA, EOMI, Normocephalic Neck: Supple, No JVD, Negative Carotid Bruits Lungs: Clear to auscultation, Normal air movement Cardiovascular: Regular rate, No murmurs Abdomen: Bowel Sounds Present, Soft, Non Tender Extremities: Capillary Refill Less than 3 Seconds, Edema Skin: No rashes, No breakdown Musculoskeletal: No Tenderness to Palpation of Joints or Extremities Neurological: Cranial nerves II-XII grossly intact Psych/Mental Status: Normal Affect, Appropriate Microbiology Past 72 Hours 09/30/20 06:50 Mucosa - Nose SARS-CoV-2 Antigen (Rapid) - Final Laboratory Results 09/29/20 14:25: Differential Comment SCANNED, Hypochromasia 3+, Target Cells 2+, Acanthocytes (Spur) 1+, Schistocytes RARE 09/29/20 14:25: Sodium 134 L, Potassium 4.2, Chloride 98, Carbon Dioxide 28.0, Anion Gap 8, BUN 128 H*, Creatinine 5.25 H, Estim Creat Clear Calc 15.06, Est GFR (MDRD) Af Amer 14 L, Est GFR (MDRD) Non-Af 12 L, BUN/Creatinine Ratio 24.4 H, Glucose 245 H, Calcium 9.2, Total Bilirubin 0.60, AST 20, ALT 24, Alkaline Phosphatase 172 H, Troponin I 0.097 H, Total Protein 6.7, Albumin 2.8 L, Globulin 3.9, Albumin/Globulin Ratio 0.7 L 09/29/20 14:25: B-Natriuretic Peptide 1941.2 H 09/29/20 17:43: POC Glucose 241 H 09/29/20 21:48: POC Glucose 244 H 09/30/20 05:40: PT 14.6, INR 1.2, APTT 29.3 09/30/20 05:40: Hemoglobin A1c 7.6 H 09/30/20 05:40: WBC 6.1, RBC 3.43 L, Hgb 9.7 L, Hct 30.6 L, MCV 89.2, MCH 28.3, MCHC 31.7 L, RDW Std Deviation 51.7 H, RDW Coeff of Yuri 16.2 H, Plt Count 191, MPV 9.6, Immature Gran % (Auto) 0.300, Neut % (Auto) 76.5 H, Lymph % (Auto) 7.9 L, [place] % (Auto) 12.0 H, Eos % (Auto) 3.0, Baso % (Auto) 0.3, Absolute Neuts (auto) 4.7, Absolute Lymphs (auto) 0.48 L, Nucleated RBC % 0, Differential Comment SCANNED, Hypochromasia 1+, Microcytosis 1+, Ovalocytes 1+, Acanthocytes (Spur) RARE, Schistocytes RARE 09/30/20 05:40: Sodium 134 L, Potassium 4.2, Chloride 99, Carbon Dioxide 27.0, Anion Gap 8, BUN 131 H*, Creatinine 5.34 H, Estim Creat Clear Calc 14.81, Est GFR (MDRD) Af Amer 14 L, Est GFR (MDRD) Non-Af 12 L, BUN/Creatinine Ratio 24.5 H, Glucose 117 H, Calcium 9.0, Phosphorus 6.9 H, Magnesium 2.6, Total Bilirubin 0.50, AST 22, ALT 25, Alkaline Phosphatase 163 H, Total Protein 6.4, Albumin 2.7 L, Globulin 3.7, Albumin/Globulin Ratio 0.7 L 09/30/20 05:58: POC Glucose 108 09/30/20 11:19: POC Glucose 83 Current Medications Acetaminophen (Acetaminophen 325 Mg Tablet) 650 mg PO Q6H PRN PRN PRN Reason: Pain Score 1-10/Temp > 100.7 F Last Admin: 09/29/20 22:08 Dose: 650 mg Documented by: Al Hydroxide/Mg Hydroxide (Mag Hydrox/Al Hydrox/Simeth 30 Ml Udc) 30 ml PO Q6H PRN PRN PRN Reason: Gastric Burning Albuterol Sulfate (Albuterol 2.5 Mg/3 Ml Vial.Neb.) 2.5 mg INHALATION Q2H PRN PRN PRN Reason: SOB/Wheezing Aspirin (Aspirin E.C. 81 Mg Tablet) 81 mg PO DAILY@0800 [facility] Atorvastatin Calcium (Atorvastatin Calcium 40 Mg Tablet) 40 mg PO QHS [facility] Last Admin: 09/29/20 21:51 Dose: 40 mg Documented by: Bumetanide (Bumetanide 2 Mg Tablet) 2 mg PO DAILY [facility] Calcitriol (Calcitriol 0.25 Mcg Capsule) 0.5 mcg PO DAILY [facility] Carvedilol (Carvedilol 25 Mg Tablet) 25 mg PO BID [facility] Last Admin: 09/30/20 10:11 Dose: 25 mg Documented by: Clonidine (Clonidine Hcl 0.1 Mg Tablet) 0.1 mg PO TID [facility] Last Admin: 09/30/20 06:00 Dose: 0.1 mg Documented by: Doxazosin Mesylate (Doxazosin 4 Mg Tablet) 4 mg PO DAILY [facility] Finasteride (Finasteride 5 Mg Tablet) 5 mg PO DAILY [facility] Heparin Sodium (Porcine) (Heparin Injection (Vial) 5,000 Unit/Ml Vial) 5,000 unit SC Q8 [facility] Last Admin: 09/30/20 06:00 Dose: Not Given Documented by: Hydralazine HCl (Hydralazine 50 Mg Tablet) 100 mg PO TID [facility] Last Admin: 09/30/20 06:00 Dose: 100 mg Documented by: Lactated Ringer's () 1,000 mls @ 15 mls/hr IV .Q48H [facility] Last Admin: 09/30/20 12:32 Dose: 15 mls/hr Documented by: Insulin Glargine (Insulin Glargine 100 Units/Ml Pen) 15 units SC DINNER [facility] Last Admin: 09/29/20 17:46 Dose: 15 units Documented by: Insulin Human Lispro (Insulin Lispro 100 Unit/Ml Insuln.Pen) 0 unit SC ACHS [facility]; Protocol Last Admin: 09/30/20 06:01 Dose: Not Given Documented by: Latanoprost (Latanoprost 0.005% 1 Bottle) 1 drop EACH EYE QHS [facility] Last Admin: 09/29/20 21:58 Dose: 1 drop Documented by: Melatonin (Melatonin 10 Mg Tablet) 5 mg PO QHS [facility] Last Admin: 09/29/20 23:33 Dose: 5 mg Documented by: Minoxidil (Minoxidil 2.5 Mg Tablet) 2.5 mg PO DAILY [facility] Ondansetron HCl (Ondansetron 4 Mg/2 Ml Vial) 4 mg IV Q8H PRN PRN PRN Reason: NAUSEA/VOMITING Sodium Chloride (0.9% Saline Lock 10 Ml Syringe) 10 - 40 ml IV UD PRN PRN Reason: SALINE FLUSH Assessment/Plan All Active Problems (Last Reviewed 09/29/20 @ 16:[address] Elizabeth Heart DO) Acute kidney injury superimposed on chronic kidney disease (Acute) Lethargy (Resolved) GARRET (acute kidney injury) (Acute) Hyperkalemia (Acute) Cervical myofascial strain (Resolved) Generalized weakness (Resolved) Leg edema (Acute) Neck muscle strain (Resolved) GARRET CKD 4 volume overload he was in the process of access placement and dialysis planning as outpatient starting dialysis today as inpatient HD today and tomorrow will need placement in outpatient dialysis unit dw
--- NOTE | 2020-09-30 14:44 | CASEMGMT ---
Referral placed in [facility] portal and faxed to [facility] and [facility] at this time. Call to [facility] to notify at this time, voice understanding. Jose M WEINBERG CM
[2020-09-30] MEDS: Finasteride 5 MG Tablet PO (15:25)
[2020-09-30] MEDS: Doxazosin 4 MG Tablet PO (15:26)
[2020-09-30] MEDS: Calcitriol 0.25 MCG Capsule 0.5 MCG PO (15:26)
[2020-09-30] MEDS: Bumetanide 2 MG Tablet PO (15:27)
[2020-09-30] MEDS: Minoxidil 2.5 MG Tablet PO (15:27)
[2020-09-30 16:20] LABS: Bedside Glucose 80 mg/dL (70-110)
--- NOTE | 2020-09-30 19:47 | DIALYSIS ---
Pt tolerated 2hr HD tx well. Hepatitis labs ordered, to be drawn with AM labs. Net UF -2000ml. See flow record for tx data.
[2020-09-30] MEDS: Acetaminophen 325 MG Tablet 650 MG PO (20:37)
[2020-09-30] MEDS: Latanoprost 0.005% 1 Bottle 1 DRP EACH EYE (22:20)
[2020-09-30] MEDS: Heparin Injection (Vial) 5,000 UNIT/ML VIAL 5000 UNIT SC (22:21)
[2020-09-30] MEDS: MELATONIN 10 MG TABLET 5 MG PO (22:22)
[2020-09-30] MEDS: Atorvastatin Calcium 40 MG Tablet PO (22:22)
[2020-09-30 22:25] LABS: Bedside Glucose 146 mg/dL (70-110)
[2020-10-01] VITALS (16 sets, daily range): BP systolic 114–154; BP diastolic 53–74; PULSE 56–62; RESP 14–17; TEMP 36.6–37.2; O2SAT 87–97; BMI 29.7
[2020-10-01] MEDS: Ondansetron 4 MG/2 ML Vial IV (01:04)
[2020-10-01 01:46] LABS: Bedside Glucose 155 mg/dL (70-110)
[2020-10-01 06:01] LABS: Absolute Lymphocyte Count 0.43 X10^3/uL (0.83-4.51); Absolute Neutrophil Count 5.6 X10^3/uL (2.0-7.7); Basophil# 0.02 X10^3/uL; Basophil% 0.3 % (0-1); Eosinophil# 0.18 X10^3/uL; Eosinophils% 2.5 % (0-5); Hematocrit 29.6 % (40-54); Hemoglobin 9.2 g/dL (13.0-16.5); Lymphocyte # 0.43 X10^3/ul (4.0); Lymphocyte % 6.1 % (19-41); Mean Corp Hgb Conc 31.1 g/dL (32-36); Mean Corpuscular Hgb 27.9 pg (27.0-32.0); Mean Corpuscular Volume 89.7 fL (80-94); Mean Platelet Vol. 10.6 fl (6.2-12.0); Monocyte# 0.85 X10^3/uL; NRBC Flagged by Analyzer 0 % (0-5); Neutrophil # 5.59 X10^3/uL (2.7-7.7); Neutrophil % 78.7 % (47-70); POSITIVE DIFFERENTIAL YES; Platelet Count 165 K/mm3 (150-450); RBC Distribution Width CV 16.1 % (11.6-14.6); RBC Distribution Width SD 52.3 fl (35.1-43.9); White Blood Count 7.1 K/mm3 (4.4-11.0)
[2020-10-01 06:10] LABS: Differential Indicated SCAN CRITERIA MET
[2020-10-01 06:26] LABS: Differential Comment SCANNED
[2020-10-01 06:27] LABS: Acanthocytes 1+; Anisocytosis 1+; Hypochromasia 2+; Microcytosis 1+
[2020-10-01 06:28] LABS: Ovalocyte RARE; Schistocytes RARE
[2020-10-01 06:43] LABS: Anion Gap 6 (5-15); BUN 102 mg/dL (7-18); BUN/Creat Ratio 22.5 RATIO (10-20); Chloride 99 mmol/L (98-107); Creatinine, Serum 4.54 mg/dL (0.70-1.30); EST Glomerular Filtration Rate 14 mL/min (>60); Est Glom Filt Rate - Afr Amer 17 mL/min (>60); Estimated Creatinine Clearance 17.42 ml/min; Glucose 125 mg/dL (74-106); Magnesium 2.4 mg/dL (1.6-2.6); Phosphorus 5.6 mg/dL (2.5-4.9); Potassium 4.1 mmol/L (3.5-5.1); Sodium Level 135 mmol/L (136-145)
[2020-10-01] MEDS: cloNIDine HCl 0.1 MG Tablet PO ×3 (06:48→21:20)
[2020-10-01] MEDS: hydrALAZINE 50 MG Tablet 100 MG PO ×3 (06:48→21:19)
[2020-10-01 06:55] LABS: Bedside Glucose 121 mg/dL (70-110)
--- NOTE | 2020-10-01 08:01 | PCM.PN.HOSP ---
Patient Problems: Active and Suspected Problems (Last Reviewed 09/29/20 @ 16:[address] Elizabeth Heart, DO) Acute kidney injury superimposed on chronic kidney disease (Acute) GARRET (acute kidney injury) (Acute) Hyperkalemia (Acute) Leg edema (Acute) Reason for Visit: Follow-up on acute kidney injury/acute volume overload/acute hypoxic respiratory insufficiency Subjective: Patient was seen and examined. He had a tunneled dialysis catheter placed yesterday. He has continued to bleed from the dialysis catheter site. Some bags were placed over the dialysis catheter for pressure support; still continues to ooze. He denied any dizziness or shortness of breath or chest pain or palpitation. He feels improved since starting dialysis. Objective: Physical exam: General: Alert, Oriented x3, Cooperative, No apparent distress, Well developed, Well nourished, on 2L oxygen Oral: Moist Mucosa Neck: Supple, Trachea Midline Lungs: Diminished, right sided tunneled dialysis catheter wit evidence of bleeding Cardiovascular: Regular rate, Regular Rhythm, Normal S1, Normal S2, No murmurs, No Ectopic Activity, No rub noted, No Gallop Abdomen: Bowel Sounds Present, Soft, Non Tender, Non-Distended Extremities: No clubbing, No cyanosis, No edema, Capillary Refill Less than 3 Seconds, Peripheral Pulses Normal Neurological: Cranial nerves II-XII grossly intact Psych/Mental Status: Appropriate, Flat Affect Vitals/I&O's: Vital Signs Temp Pulse Resp BP Pulse Ox 97.8 F 59 L 16 154/53 H 97 10/01/20 06:42 10/01/20 06:48 10/01/20 06:42 10/01/20 06:48 10/01/20 06:42 Oxygen Flow Rate (L/min) 2 Oxygen Delivery Method Nasal Cannula Weight: 95.4 kg Body Mass Index (BMI) 30.7 Finger Stick Blood Glucose 210 Intake and Output for Last 24 Hours 09/29/20 09/30/20 10/01/20 23:59 23:59 23:59 Intake Total 240 / 240 0 / 240 360 / 360 Output Total 2350 / 2350 Balance 240 / 240 -2350 / -2110 360 / 360 Microbiology Past 72 Hours 09/30/20 06:50 Mucosa - Nose SARS-CoV-2 Antigen (Rapid) - Final Laboratory Results 09/30/20 11:19: POC Glucose 83 09/30/20 16:09: POC Glucose 80 09/30/20 21:52: POC Glucose 146 H 10/01/20 01:39: POC Glucose 155 H 10/01/20 05:14: WBC 7.1, RBC 3.30 L, Hgb 9.2 L, Hct 29.6 L, MCV 89.7, MCH 27.9, MCHC 31.1 L, RDW Std Deviation 52.3 H, RDW Coeff of Yuri 16.1 H, Plt Count 165, MPV 10.6, Immature Gran % (Auto) 0.400, Neut % (Auto) 78.7 H, Lymph % (Auto) 6.1 L, [place] % (Auto) 12.0 H, Eos % (Auto) 2.5, Baso % (Auto) 0.3, Absolute Neuts (auto) 5.6, Absolute Lymphs (auto) 0.43 L, Nucleated RBC % 0, Differential Comment SCANNED, Hypochromasia 2+, Anisocytosis 1+, Microcytosis 1+, Ovalocytes RARE, Acanthocytes (Spur) 1+, Schistocytes RARE 10/01/20 05:14: Sodium 135 L, Potassium 4.1, Chloride 99, Carbon Dioxide 30.0, Anion Gap 6, BUN 102 H*, Creatinine 4.54 H, Estim Creat Clear Calc 17.42, Est GFR (MDRD) Af Amer 17 L, Est GFR (MDRD) Non-Af 14 L, BUN/Creatinine Ratio 22.5 H, Glucose 125 H, Calcium 8.0 L, Phosphorus 5.6 H, Magnesium 2.4 10/01/20 05:14: Hep B Core Total Ab Pending 10/01/20 05:14: Hep Bs Antigen Pending, Hep Bs Antibody Pending 10/01/20 06:47: POC Glucose 121 H Current Medications Acetaminophen (Acetaminophen 325 Mg Tablet) 650 mg PO Q6H PRN PRN PRN Reason: Pain Score 1-10/Temp > 100.7 F Last Admin: 09/30/20 20:37 Dose: 650 mg Documented by: Al Hydroxide/Mg Hydroxide (Mag Hydrox/Al Hydrox/Simeth 30 Ml Udc) 30 ml PO Q6H PRN PRN PRN Reason: Gastric Burning Albuterol Sulfate (Albuterol 2.5 Mg/3 Ml Vial.Neb.) 2.5 mg INHALATION Q2H PRN PRN PRN Reason: SOB/Wheezing Aspirin (Aspirin E.C. 81 Mg Tablet) 81 mg PO DAILY@0800 [facility] Last Admin: 09/30/20 15:22 Dose: Not Given Documented by: Atorvastatin Calcium (Atorvastatin Calcium 40 Mg Tablet) 40 mg PO QHS [facility] Last Admin: 09/30/20 22:22 Dose: 40 mg Documented by: Bumetanide (Bumetanide 2 Mg Tablet) 2 mg PO DAILY [facility] Last Admin: 09/30/20 15:27 Dose: 2 mg Documented by: Calcitriol (Calcitriol 0.25 Mcg Capsule) 0.5 mcg PO DAILY [facility] Last Admin: 09/30/20 15:26 Dose: 0.5 mcg Documented by: Carvedilol (Carvedilol 25 Mg Tablet) 25 mg PO BID [facility] Last Admin: 09/30/20 22:28 Dose: Not Given Documented by: Clonidine (Clonidine Hcl 0.1 Mg Tablet) 0.1 mg PO TID [facility] Last Admin: 10/01/20 06:48 Dose: 0.1 mg Documented by: Doxazosin Mesylate (Doxazosin 4 Mg Tablet) 4 mg PO DAILY [facility] Last Admin: 09/30/20 15:26 Dose: 4 mg Documented by: Finasteride (Finasteride 5 Mg Tablet) 5 mg PO DAILY [facility] Last Admin: 09/30/20 15:25 Dose: 5 mg Documented by: Heparin Sodium (Porcine) (Heparin Injection (Vial) 5,000 Unit/Ml Vial) 5,000 unit SC Q8 [facility] Last Admin: 10/01/20 06:53 Dose: Not Given Documented by: Hydralazine HCl (Hydralazine 50 Mg Tablet) 100 mg PO TID [facility] Last Admin: 10/01/20 06:48 Dose: 100 mg Documented by: Influenza Virus Vaccine Quadrival (Influenza Vaccine (6mos+)/Pf 0.5 Ml Syringe) 0.5 ml IM .ONCE ONE Stop: 10/01/20 10:01 Insulin Glargine (Insulin Glargine 100 Units/Ml Pen) 15 units SC DINNER [facility] Last Admin: 09/30/20 16:26 Dose: Not Given Documented by: Insulin Human Lispro (Insulin Lispro 100 Unit/Ml Insuln.Pen) 0 unit SC [facility]; Protocol Last Admin: 10/01/20 06:54 Dose: Not Given Documented by: Latanoprost (Latanoprost 0.005% 1 Bottle) 1 drop EACH EYE QHS [facility] Last Admin: 09/30/20 22:20 Dose: 1 drop Documented by: Melatonin (Melatonin 10 Mg Tablet) 5 mg PO QHS [facility] Last Admin: 09/30/20 22:22 Dose: 5 mg Documented by: Minoxidil (Minoxidil 2.5 Mg Tablet) 2.5 mg PO DAILY [facility] Last Admin: 09/30/20 15:27 Dose: 2.5 mg Documented by: Ondansetron HCl (Ondansetron 4 Mg/2 Ml Vial) 4 mg IV Q8H PRN PRN PRN Reason: NAUSEA/VOMITING Last Admin: 10/01/20 01:04 Dose: 4 mg Documented by: Sodium Chloride (0.9% Saline Lock 10 Ml Syringe) 10 - 40 ml IV UD PRN PRN Reason: SALINE FLUSH STROKE Vital Signs/Narrative: Vital Signs Temp Pulse Resp BP Pulse Ox 10/01/20 06:48 59 L 154/53 H 10/01/20 06:42 97.8 F 59 L 16 154/53 H 97 Medical Necessity - Tobacco Use Smoking Status: Never smoker Assessment/Plan All Active Problems (Last Reviewed 09/29/20 @ 16:[address] Elizabeth Heart, DO) Acute kidney injury superimposed on chronic kidney disease (Acute) Lethargy (Resolved) GARRET (acute kidney injury) (Acute) Hyperkalemia (Acute) Cervical myofascial strain (Resolved) Generalized weakness (Resolved) Leg edema (Acute) Neck muscle strain (Resolved) 1. Acute hypoxic respiratory insufficiency secondary to volume overload Chest x-ray shows vascular congestion Currently on 2 L of oxygen; will wean off oxygen for SPO2 more than 94% as fluid is taken off during dialysis. 2. GARRET/acute volume overload/acute exacerbation of heart failure with reduced EF Now on dialysis, status post tunnel dialysis catheter on 10/01/20 2D echo shows EF of 45% Fluid removal during dialysis; Nephrology following 3. Hyponatremia, slowly improving, repeat blood work in a.m. 4. Hypertension/CAD status post CABG Continue on aspirin, statin, Bumex, carvedilol, clonidine, doxazosin, hydralazine 5. Anemia, chronic normocytic, hemoglobin appears stable Currently at 9.2, will continue to trend 6. Type II DM, blood sugars are controlled On Lantus with insulin sliding scale 7. Secondary hyperparathyroidism, continue on calcitriol 8. DVT PPx- Heparin SC Inpatient E&M: 96181 Subs Hosp L3
[2020-10-01 08:52] LABS: Hepatitis B Surface Antibody Non-Reactive; Hepatitis B Surface Antigen Non-Reactive (Nonreactive)
[2020-10-01 11:31] LABS: Bedside Glucose 113 mg/dL (70-110)
--- NOTE | 2020-10-01 12:08 | DIALYSIS ---
HD x 3 hours complete. Tolerated tx well. UF of 3500ml. Used right chest wall dialysis catheter. Surgeon placed sutures around catheter exit site during tx which stopped the bleeding from the exit site. New dressing was placed. Dressing is currently dry and intact. Lumens closed with heparin per fill volume. Caps placed. Desmopressin held at the end of tx per Dr. Jackson d/t sutures being effective. Report was given to SULTANA Parikh.
--- NOTE | 2020-10-01 14:20 | CASEMGMT ---
Addendum entered by Angeli Enciso 10/01/20 16:04: Call to Juan at [facility] and he states no word on financial approval at this time. Message left with Ada, hospital/pt marine service operator, to notify of delay in financial approval. Ada aware to call PCU if financial approval is obtained this evening. Rey, PCU charge, updated on all and aware that pt will here thru w/e unless they here from [facility], voices understanding. Jose M WEINBERG CM Addendum entered by Angeli Enciso 10/01/20 14:36: Pt is currently on 2L nc at this time. After list of local, in-network DME companies provided, pt/ state they would like [employer] at this time. Green sheet left on chart, if pt qualifies for home oxygen at discharge. Jose M WEINBERG CM Original Note: Per Juan at [place], pt will have chair time TTS at 12n. Pt/ updated at this time. states she will be driving pt. Pt/ aware to be at first treatment 45-60minutes early and they are aware that financial approval has not been achieved yet at this time, voice understanding. would like to know if she is able to go in for the first treatment to help complete assessment/paperwork. Call back to Juan and he states can definitely come and pt/ updated at this time. Per Ling at [facility] admissions, we are still awaiting financial approval for pt at this time. Juan states he will send an email to Ada, the hospital/pt marine service operator, to check on financials at this time. CM to follow. Jose M WEINBERG CM
[2020-10-01] MEDS: Heparin 10,000 UNITS/10 ML Vial IV (14:51)
--- NOTE | 2020-10-01 14:52 | PN.RENAL_ITS ---
Patient Problems: Active and Suspected Problems (Last Reviewed 09/29/20 @ 16:[address] Elizabeth Heart, DO) Acute kidney injury superimposed on chronic kidney disease (Acute) GARRET (acute kidney injury) (Acute) Hyperkalemia (Acute) Leg edema (Acute) Subjective: no new complaints - Physical Exam Vitals/I&O's: Vital Signs Temp Pulse Resp BP Pulse Ox 98.2 F 59 L 14 136/68 H 97 10/01/20 12:15 10/01/20 12:15 10/01/20 12:15 10/01/20 12:15 10/01/20 12:15 Oxygen Flow Rate (L/min) 2 Oxygen Delivery Method Nasal Cannula Weight: 95.4 kg Body Mass Index (BMI) 30.7 Finger Stick Blood Glucose 210 Intake and Output for Last 24 Hours 09/29/20 09/30/20 10/01/20 23:59 23:59 23:59 Intake Total 240 / 240 0 / 240 360 / 360 Output Total 2350 / 2350 0 / 0 Balance 240 / 240 -2350 / -2110 360 / 360 General: Alert, Oriented x3, Cooperative HEENT: Atraumatic, PERRLA, EOMI, Normocephalic Neck: Supple, No JVD, Negative Carotid Bruits Lungs: Clear to auscultation, Normal air movement Cardiovascular: Regular rate, No murmurs Abdomen: Bowel Sounds Present, Soft, Non Tender Extremities: No edema, Capillary Refill Less than 3 Seconds Skin: No rashes, No breakdown Musculoskeletal: No Tenderness to Palpation of Joints or Extremities Neurological: Cranial nerves II-XII grossly intact Psych/Mental Status: Normal Affect, Appropriate Microbiology Past 72 Hours 09/30/20 06:50 Mucosa - Nose SARS-CoV-2 Antigen (Rapid) - Final Laboratory Results 09/30/20 16:09: POC Glucose 80 09/30/20 21:52: POC Glucose 146 H 10/01/20 01:39: POC Glucose 155 H 10/01/20 05:14: WBC 7.1, RBC 3.30 L, Hgb 9.2 L, Hct 29.6 L, MCV 89.7, MCH 27.9, MCHC 31.1 L, RDW Std Deviation 52.3 H, RDW Coeff of Yuri 16.1 H, Plt Count 165, MPV 10.6, Immature Gran % (Auto) 0.400, Neut % (Auto) 78.7 H, Lymph % (Auto) 6.1 L, [place] % (Auto) 12.0 H, Eos % (Auto) 2.5, Baso % (Auto) 0.3, Absolute Neuts (auto) 5.6, Absolute Lymphs (auto) 0.43 L, Nucleated RBC % 0, Differential Comment SCANNED, Hypochromasia 2+, Anisocytosis 1+, Microcytosis 1+, Ovalocytes RARE, Acanthocytes (Spur) 1+, Schistocytes RARE 10/01/20 05:14: Sodium 135 L, Potassium 4.1, Chloride 99, Carbon Dioxide 30.0, Anion Gap 6, BUN 102 H*, Creatinine 4.54 H, Estim Creat Clear Calc 17.42, Est GFR (MDRD) Af Amer 17 L, Est GFR (MDRD) Non-Af 14 L, BUN/Creatinine Ratio 22.5 H , Glucose 125 H, Calcium 8.0 L, Phosphorus 5.6 H, Magnesium 2.4 10/01/20 05:14: Hep B Core Total Ab Pending 10/01/20 05:14: Hep Bs Antigen Non-Reactive, Hep Bs Antibody Non-Reactive 10/01/20 06:47: POC Glucose 121 H 10/01/20 11:19: POC Glucose 113 H Current Medications Acetaminophen (Acetaminophen 325 Mg Tablet) 650 mg PO Q6H PRN PRN PRN Reason: Pain Score 1-10/Temp > 100.7 F Last Admin: 09/30/20 20:37 Dose: 650 mg Documented by: Al Hydroxide/Mg Hydroxide (Mag Hydrox/Al Hydrox/Simeth 30 Ml Udc) 30 ml PO Q6H PRN PRN PRN Reason: Gastric Burning Albuterol Sulfate (Albuterol 2.5 Mg/3 Ml Vial.Neb.) 2.5 mg INHALATION Q2H PRN PRN PRN Reason: SOB/Wheezing Aspirin (Aspirin E.C. 81 Mg Tablet) 81 mg PO DAILY@0800 [facility] Last Admin: 10/01/20 10:00 Dose: Not Given Documented by: Atorvastatin Calcium (Atorvastatin Calcium 40 Mg Tablet) 40 mg PO QHS [facility] Last Admin: 09/30/20 22:22 Dose: 40 mg Documented by: Bumetanide (Bumetanide 2 Mg Tablet) 2 mg PO DAILY [facility] Last Admin: 09/30/20 15:27 Dose: 2 mg Documented by: Calcitriol (Calcitriol 0.25 Mcg Capsule) 0.5 mcg PO DAILY [facility] Last Admin: 09/30/20 15:26 Dose: 0.5 mcg Documented by: Carvedilol (Carvedilol 25 Mg Tablet) 25 mg PO BID [facility] Last Admin: 10/01/20 10:00 Dose: Not Given Documented by: Clonidine (Clonidine Hcl 0.1 Mg Tablet) 0.1 mg PO TID [facility] Last Admin: 10/01/20 06:48 Dose: 0.1 mg Documented by: Doxazosin Mesylate (Doxazosin 4 Mg Tablet) 4 mg PO DAILY [facility] Last Admin: 09/30/20 15:26 Dose: 4 mg Documented by: Finasteride (Finasteride 5 Mg Tablet) 5 mg PO DAILY [facility] Last Admin: 09/30/20 15:25 Dose: 5 mg Documented by: Heparin Sodium (Porcine) (Heparin Injection (Vial) 5,000 Unit/Ml Vial) 5,000 unit SC Q8 [facility] Last Admin: 10/01/20 14:50 Dose: Not Given Documented by: Hydralazine HCl (Hydralazine 50 Mg Tablet) 100 mg PO TID [facility] Last Admin: 10/01/20 06:48 Dose: 100 mg Documented by: Insulin Glargine (Insulin Glargine 100 Units/Ml Pen) 15 units SC DINNER [facility] Last Admin: 09/30/20 16:26 Dose: Not Given Documented by: Insulin Human Lispro (Insulin Lispro 100 Unit/Ml Insuln.Pen) 0 unit SC [facility]; Protocol Last Admin: 10/01/20 11:00 Dose: Not Given Documented by: Latanoprost (Latanoprost 0.005% 1 Bottle) 1 drop EACH EYE QHS [facility] Last Admin: 09/30/20 22:20 Dose: 1 drop Documented by: Melatonin (Melatonin 10 Mg Tablet) 5 mg PO QHS [facility] Last Admin: 09/30/20 22:22 Dose: 5 mg Documented by: Minoxidil (Minoxidil 2.5 Mg Tablet) 2.5 mg PO DAILY [facility] Last Admin: 09/30/20 15:27 Dose: 2.5 mg Documented by: Ondansetron HCl (Ondansetron 4 Mg/2 Ml Vial) 4 mg IV Q8H PRN PRN PRN Reason: NAUSEA/VOMITING Last Admin: 10/01/20 01:04 Dose: 4 mg Documented by: Sodium Chloride (0.9% Saline Lock 10 Ml Syringe) 10 - 40 ml IV UD PRN PRN Reason: SALINE FLUSH Medical Necessity - Tobacco Use Smoking Status: Never smoker Assessment/Plan All Active Problems (Last Reviewed 09/29/20 @ 16:[address] Elizabeth Heart, DO) Acute kidney injury superimposed on chronic kidney disease (Acute) Lethargy (Resolved) GARRET (acute kidney injury) (Acute) Hyperkalemia (Acute) Cervical myofascial strain (Resolved) Generalized weakness (Resolved) Leg edema (Acute) Neck muscle strain (Resolved) GARRET CKD 4 volume overload HD x 2 called dialysis unit has a TTS second shift spot no insurance authorization yet will need to stay here until approved HD tomorrow and continue TTS after some bleeding issues with tunneled line now better juan carlos family at bedside juan carlos hospitalist
[2020-10-01] MEDS: Calcitriol 0.25 MCG Capsule 0.5 MCG PO (15:32)
[2020-10-01] MEDS: Minoxidil 2.5 MG Tablet PO (15:33)
[2020-10-01] MEDS: Finasteride 5 MG Tablet PO (15:33)
[2020-10-01] MEDS: Bumetanide 2 MG Tablet PO (15:33)
[2020-10-01] MEDS: Doxazosin 4 MG Tablet PO (15:33)
--- NOTE | 2020-10-01 16:45 | NURSING ---
Received phone call from [facility] that Patient has been financially cleared for dialysis. Requested patient arrive at 1100 for his first session.
--- NOTE | 2020-10-01 17:08 | DCINST_ITS ---
- Discharge Diagnoses Current Active Problems: Current Active and Chronic Problems (Last Reviewed 09/29/20 @ 16:[address] Elizabeth Heart, DO) Acute kidney injury superimposed on chronic kidney disease (Acute) GARRET (acute kidney injury) (Acute) Hyperkalemia (Acute) Pure hypercholesterolemia (Chronic) Ischemic cardiomyopathy (Chronic) Essential hypertension (Chronic) Leg edema (Acute) Overweight (BMI 25.0-29.9) (Chronic) Ankylosing spondylitis (Chronic) Hx of CABG (Chronic ~04/12/17) CARTY to LAD, SVG to PDA, SVG to OM 04/12/2017 @ [facility]; Ventricular tachyarrhythmia (Chronic) Atherosclerosis of [place] coronary artery of [place] heart without angina pectoris (Chronic) S/P surgery with CARTY to LAD, SVG to OM system, and SVG to PDA in March 2017 at [facility]; DM2 (diabetes mellitus, type 2) (Chronic) Gout (Chronic) Diabetes mellitus with neuropathy (Chronic) CHF (congestive heart failure) (Chronic) NSTEMI (non-ST elevated myocardial infarction) (Chronic) Valvular heart disease (Chronic) Cardiomyopathy (Chronic) Pulmonary HTN (Chronic) Reason(s) for Visit for Discharge Instructions: Fluid overload, Acute kidney injury You will use the following diet at home:: Renal (restricted protein/sodium) Your food should be the consistency of: Regular Your liquids should be the consistency of: Regular/Thin Discharge Activity: Return to Normal Activity Additional Instructions: Follow-up with instructions for care for your tunneled dialysis catheter. You are required to have dialysis Sunday??Sunday. Dialysis will be arranged tomorrow. Follow-up with Dr. Jackson in the outpatient as scheduled. Allergies/Adverse Reactions: Allergies pregabalin [From Lyrica] Allergy (Verified 09/29/20 13:13) Angioedema Medications to take at Discharge Insulin Detemir [Levemir] 15 unit SQ DINNER 06/03/18 Latanoprost 0.005% [Xalatan Opthalmic] 1 drp EACH EYE QHS 06/03/18 Tadalafil [Cialis] 60 mg PO PRN PRN 06/03/18 Multivitamin with Minerals [Multiple Vitamin] 2 tab PO DAILY 03/21/19 finasteride 5 mg tablet 5 mg PO DAILY 05/06/19 metolazone 2.5 mg tablet 2.5 mg PO PRN PRN tab 11/06/19 calcitriol 0.5 mcg capsule 0.5 mcg PO DAILY 08/02/20 clonidine HCl 0.1 mg tablet 0.1 mg PO TID 08/02/20 hydralazine 100 mg tablet 100 mg PO TID tab 08/02/20 melatonin 5 mg tablet 5 mg PO HS PRN 08/02/20 Minoxidil [Loniten] 2.5 mg PO DAILY 09/22/20 Acetaminophen [Tylenol] 1,000 mg PO DAILY PRN 09/29/20 Aspirin E.C. [Ecotrin] 81 mg PO DAILY@0800 09/29/20 Atorvastatin Calcium [Lipitor] 40 mg PO QHS 09/29/20 Bumetanide 2 mg PO DAILY 09/29/20 Carvedilol 25 mg PO BID 09/29/20 Doxazosin Mesylate [Cardura] 4 mg PO DAILY 09/29/20 Primary Care Physician: Blade Teixeira MD [Primary Care Provider] - Please follow up with your Primary Care Physician in: within 1-2 weeks Test Results: Test results from this visit will be discussed in further detail at your follow- up appointment, if applicable. Please Follow Up With: Blade Teixeira MD Please Follow Up With: Nata Jackson MD When: as scheduled Proposed Discharge Date: 10/01/20
--- NOTE | 2020-10-01 17:10 | PCM.DC.SUM ---
Discharge Date and Diagnosis - Problem List Patient Problems: Active and Suspected Problems (Last Reviewed 09/29/20 @ 16:[address] Elizabeth Heart DO) Acute kidney injury superimposed on chronic kidney disease (Acute) GARRET (acute kidney injury) (Acute) Hyperkalemia (Acute) Leg edema (Acute) Date of Admission: 09/29/20 Date of Discharge: 10/02/20 - Primary Discharge Diagnosis Acute Problems: Active Problems (Last Reviewed 09/29/20 @ 16:[address] Elizabeth Heart DO) Acute hypoxic respiratory insufficiency secondary to volume overload Acute kidney injury Hyponatremia Acute on chronic heart failure with reduced EF, EF 45% - Secondary Discharge Diagnosis Chronic Problems: Chronic Problems (Last Reviewed 09/29/20 @ 16:[address] Elizabeth Heart DO) Pure hypercholesterolemia (Chronic) Ischemic cardiomyopathy (Chronic) Essential hypertension (Chronic) Leg swelling (Chronic) Overweight (BMI 25.0-29.9) (Chronic) Ankylosing spondylitis (Chronic) Renal insufficiency (Chronic) Hx of CABG (Chronic ~04/12/17) CARTY to LAD, SVG to PDA, SVG to OM 04/12/2017 @ [facility]; Ventricular tachyarrhythmia (Chronic) Atherosclerosis of [place] coronary artery of [place] heart without angina pectoris (Chronic) S/P surgery with CARTY to LAD, SVG to OM system, and SVG to PDA in March 2017 at [facility]; DM2 (diabetes mellitus, type 2) (Chronic) Gout (Chronic) Diabetes mellitus with neuropathy (Chronic) Abscess of right foot (Chronic) CHF (congestive heart failure) (Chronic) NSTEMI (non-ST elevated myocardial infarction) (Chronic) Valvular heart disease (Chronic) Cardiomyopathy (Chronic) Pulmonary HTN (Chronic) Hospital Course and Treatment Imaging Results: Clinical Impression(s) from Imaging Studies Chest X-Ray 09/29/20 14:30 IMPRESSION: Cardiomegaly. Vascular congestion and mild degree of CHF. Electronically Signed: Enrike Pina MD at 14:48 EST , Service support , Chest X-Ray 09/30/20 14:15 IMPRESSION: The tip of the right dialysis catheter is at the junction of the superior vena cava and right atrium. Cardiomegaly and residual mild degree of vascular congestion. Electronically Signed: Enrike Pina MD at 14:32 EST , Service support , Nephrology General surgery Operations: None Procedures: - - Status post right tunneled dialysis catheter on 09/30/20 Summary of Care Provided: The patient is a 64 year old M with past medical history of hypertension, CAD status post CABG, CKD stage 4/5 who comes in with worsening bilateral lower extremity edema, exertional shortness of breath. Patient follows with nephrology in the outpatient. He had already gone vein mapping and arterial studies. He recently had his diuretics increased by nephrology but it still did not help with his fluid overload state. He was seen in the emergency room, he was saturating 91% on room air. His BNP was one 941.2. His chest x-ray showed fluid overload. Patient had a tunneled dialysis catheter placed and he underwent 2 dialysis whilst in the hospital. He had an outpatient dialysis chair arranged and will be going for dialysis Sunday??Sunday. Patient was discharged from the hospital to go for dialysis the same day at 11 AM. He will follow-up with nephrology and with his primary care doctor in the outpatient. Patient was evaluated for home oxygen and he qualified for discharge on oxygen. Patient Problems: Active and Suspected Problems (Last Reviewed 09/29/20 @ 16:[address] Elizabeth Heart, ) Acute kidney injury superimposed on chronic kidney disease (Acute) GARRET (acute kidney injury) (Acute) Hyperkalemia (Acute) Leg edema (Acute) Subjective: On the day of discharge, patient was seen and examined. He felt improved. He was on 2 L of oxygen. Objective: Physical exam: General: Alert, Oriented x3, Cooperative, No apparent distress, Well developed, Well nourished, on 2L oxygen Oral: Moist Mucosa Neck: Supple, Trachea Midline Lungs: Diminished, right sided tunneled dialysis catheter wit evidence of bleeding Cardiovascular: Regular rate, Regular Rhythm, Normal S1, Normal S2, No murmurs, No Ectopic Activity, No rub noted, No Gallop Abdomen: Bowel Sounds Present, Soft, Non Tender, Non-Distended Extremities: No clubbing, No cyanosis, No edema, Capillary Refill Less than 3 Seconds, Peripheral Pulses Normal Neurological: Cranial nerves II-XII grossly intact Psych/Mental Status: Appropriate - Physical Exam Vitals/I&O's: Vital Signs Temp Pulse Resp BP Pulse Ox 98.9 F 61 16 140/74 H 93 10/01/20 15:28 10/01/20 15:32 10/01/20 15:28 10/01/20 15:28 10/01/20 15:28 Oxygen Flow Rate (L/min) [ 2 AMBULATION with Oxygen] Oxygen Flow Rate (L/min) [ 0 AMBULATING on Room Air] Oxygen Flow Rate (L/min) [At 0 REST on Room Air] Oxygen Flow Rate (L/min) 2 Oxygen Delivery Method Nasal Cannula Weight: 95.4 kg Body Mass Index (BMI) 30.7 Finger Stick Blood Glucose 210 Intake and Output for Last 24 Hours 09/29/20 09/30/20 10/01/20 23:59 23:59 23:59 Intake Total 240 / 240 0 / 240 360 / 360 Output Total 2350 / 2350 0 / 0 Balance 240 / 240 -2350 / -2110 360 / 360 Microbiology Past 72 Hours 09/30/20 06:50 Mucosa - Nose SARS-CoV-2 Antigen (Rapid) - Final Laboratory Results 09/30/20 21:52: POC Glucose 146 H 10/01/20 01:39: POC Glucose 155 H 10/01/20 05:14: WBC 7.1, RBC 3.30 L, Hgb 9.2 L, Hct 29.6 L, MCV 89.7, MCH 27.9, MCHC 31.1 L, RDW Std Deviation 52.3 H, RDW Coeff of Yuri 16.1 H, Plt Count 165, MPV 10.6, Immature Gran % (Auto) 0.400, Neut % (Auto) 78.7 H, Lymph % (Auto) 6.1 L, [place] % (Auto) 12.0 H, Eos % (Auto) 2.5, Baso % (Auto) 0.3, Absolute Neuts (auto) 5.6, Absolute Lymphs (auto) 0.43 L, Nucleated RBC % 0, Differential Comment SCANNED, Hypochromasia 2+, Anisocytosis 1+, Microcytosis 1+, Ovalocytes RARE, Acanthocytes (Spur) 1+, Schistocytes RARE 10/01/20 05:14: Sodium 135 L, Potassium 4.1, Chloride 99, Carbon Dioxide 30.0, Anion Gap 6, BUN 102 H*, Creatinine 4.54 H, Estim Creat Clear Calc 17.42, Est GFR (MDRD) Af Amer 17 L, Est GFR (MDRD) Non-Af 14 L, BUN/Creatinine Ratio 22.5 H, Glucose 125 H, Calcium 8.0 L, Phosphorus 5.6 H, Magnesium 2.4 10/01/20 05:14: Hep B Core Total Ab Pending 10/01/20 05:14: Hep Bs Antigen Non-Reactive, Hep Bs Antibody Non-Reactive 10/01/20 06:47: POC Glucose 121 H 10/01/20 11:19: POC Glucose 113 H Current Medications Acetaminophen (Acetaminophen 325 Mg Tablet) 650 mg PO Q6H PRN PRN PRN Reason: Pain Score 1-10/Temp > 100.7 F Last Admin: 09/30/20 20:37 Dose: 650 mg Documented by: Al Hydroxide/Mg Hydroxide (Mag Hydrox/Al Hydrox/Simeth 30 Ml Udc) 30 ml PO Q6H PRN PRN PRN Reason: Gastric Burning Albuterol Sulfate (Albuterol 2.5 Mg/3 Ml Vial.Neb.) 2.5 mg INHALATION Q2H PRN PRN PRN Reason: SOB/Wheezing Aspirin (Aspirin E.C. 81 Mg Tablet) 81 mg PO DAILY@0800 [facility] Last Admin: 10/01/20 10:00 Dose: Not Given Documented by: Atorvastatin Calcium (Atorvastatin Calcium 40 Mg Tablet) 40 mg PO QHS [facility] Last Admin: 09/30/20 22:22 Dose: 40 mg Documented by: Bumetanide (Bumetanide 2 Mg Tablet) 2 mg PO DAILY [facility] Last Admin: 10/01/20 15:33 Dose: 2 mg Documented by: Calcitriol (Calcitriol 0.25 Mcg Capsule) 0.5 mcg PO DAILY [facility] Last Admin: 10/01/20 15:32 Dose: 0.5 mcg Documented by: Carvedilol (Carvedilol 25 Mg Tablet) 25 mg PO BID [facility] Last Admin: 10/01/20 10:00 Dose: Not Given Documented by: Clonidine (Clonidine Hcl 0.1 Mg Tablet) 0.1 mg PO TID [facility] Last Admin: 10/01/20 15:33 Dose: 0.1 mg Documented by: Doxazosin Mesylate (Doxazosin 4 Mg Tablet) 4 mg PO DAILY [facility] Last Admin: 10/01/20 15:33 Dose: 4 mg Documented by: Finasteride (Finasteride 5 Mg Tablet) 5 mg PO DAILY [facility] Last Admin: 10/01/20 15:33 Dose: 5 mg Documented by: Heparin Sodium (Porcine) (Heparin Injection (Vial) 5,000 Unit/Ml Vial) 5,000 unit SC Q8 [facility] Last Admin: 10/01/20 14:50 Dose: Not Given Documented by: Hydralazine HCl (Hydralazine 50 Mg Tablet) 100 mg PO TID [facility] Last Admin: 10/01/20 15:32 Dose: 100 mg Documented by: Insulin Glargine (Insulin Glargine 100 Units/Ml Pen) 15 units SC DINNER [facility] Last Admin: 09/30/20 16:26 Dose: Not Given Documented by: Insulin Human Lispro (Insulin Lispro 100 Unit/Ml Insuln.Pen) 0 unit SC [facility]; Protocol Last Admin: 10/01/20 11:00 Dose: Not Given Documented by: Latanoprost (Latanoprost 0.005% 1 Bottle) 1 drop EACH EYE QHS [facility] Last Admin: 09/30/20 22:20 Dose: 1 drop Documented by: Melatonin (Melatonin 10 Mg Tablet) 5 mg PO QHS [facility] Last Admin: 09/30/20 22:22 Dose: 5 mg Documented by: Minoxidil (Minoxidil 2.5 Mg Tablet) 2.5 mg PO DAILY [facility] Last Admin: 10/01/20 15:33 Dose: 2.5 mg Documented by: Ondansetron HCl (Ondansetron 4 Mg/2 Ml Vial) 4 mg IV Q8H PRN PRN PRN Reason: NAUSEA/VOMITING Last Admin: 10/01/20 01:04 Dose: 4 mg Documented by: Sodium Chloride (0.9% Saline Lock 10 Ml Syringe) 10 - 40 ml IV UD PRN PRN Reason: SALINE FLUSH Discharge Diet: Low fat/ Low Cholesterol, 2000 mg Sodium Diet, Renal Diet Discharge Activity: Return to Normal Activity Home Medications: Medications to take at Discharge Insulin Detemir [Levemir] 15 unit SQ DINNER 06/03/18 Latanoprost 0.005% [Xalatan Opthalmic] 1 drp EACH EYE QHS 06/03/18 Tadalafil [Cialis] 60 mg PO PRN PRN 06/03/18 Multivitamin with Minerals [Multiple Vitamin] 2 tab PO DAILY 03/21/19 finasteride 5 mg tablet 5 mg PO DAILY 05/06/19 metolazone 2.5 mg tablet 2.5 mg PO PRN PRN tab 11/06/19 calcitriol 0.5 mcg capsule 0.5 mcg PO DAILY 08/02/20 clonidine HCl 0.1 mg tablet 0.1 mg PO TID 08/02/20 hydralazine 100 mg tablet 100 mg PO TID tab 08/02/20 melatonin 5 mg tablet 5 mg PO HS PRN 08/02/20 Minoxidil [Loniten] 2.5 mg PO DAILY 09/22/20 Acetaminophen [Tylenol] 1,000 mg PO DAILY PRN 09/29/20 Aspirin E.C. [Ecotrin] 81 mg PO DAILY@0800 09/29/20 Atorvastatin Calcium [Lipitor] 40 mg PO QHS 09/29/20 Bumetanide 2 mg PO DAILY 09/29/20 Carvedilol 25 mg PO BID 09/29/20 Doxazosin Mesylate [Cardura] 4 mg PO DAILY 09/29/20 Primary Care Physician: Blade Teixeira MD [Primary Care Provider] - Please follow up with your Primary Care Physician in: within 1-2 weeks Please Follow Up With: Blade Teixeira MD Please Follow Up With: Nata Jackson MD When: as scheduled Disposition: Home Minutes spent on discharge:: 40 Patient Condition:: Stable Medical Necessity - Tobacco Use Smoking Status: Never smoker Tobacco Use: Non-smoker Meaningful Use Info Meaningful Use Diagnoses (Choose all that apply): CHF - CHF VANESSA/ARB ordered at discharge?: No Reason VANESSA/ARB not ordered?: Worsening renal disease Documented LVEF (%): 45 Inpatient E&M: 56742 Disch Hosp
[2020-10-01] MEDS: Insulin Lispro 100 UNIT/ML INSULN.PEN SC (17:33)
[2020-10-01] MEDS: Acetaminophen 325 MG Tablet 650 MG PO (17:34)
[2020-10-01 17:40] LABS: Bedside Glucose 173 mg/dL (70-110)
--- NOTE | 2020-10-01 19:46 | NURSING ---
After having a difficult time reaching the after hours [facility] we got through and O2 will be delivered by approximately 2014. Meanwhile the patient's asked to speak with the RN and transmitter engineer in charge. She explained she is not comfortable with him going home this late with an ice driveway and new oxygen. This RN explained that I am not certain whether the doctor will be willing to cancel the discharge, but will look into it further and get back to her either way. She voiced understanding and went home stating that at least if she gets home now she can put some salt down.
--- NOTE | 2020-10-01 19:50 | NURSING ---
At 1800 this RN spoke with Juan sanchez [facility] to verifiy that if the patient is discharged home this evening or tomorrow morning he can come to his outpatient chair time. He confirmed yes, he is expecting the patient at 1100 for a 1200 chair time.
--- NOTE | 2020-10-01 20:49 | PCS.PANDOC ---
PANDEMIC DOCUMENTATION INITIATED: Date: 10/01/2020 Time: 190
[2020-10-01] MEDS: Atorvastatin Calcium 40 MG Tablet PO (21:19)
[2020-10-01] MEDS: Carvedilol 25 MG Tablet PO (21:20)
[2020-10-01] MEDS: MELATONIN 10 MG TABLET 5 MG PO (21:20)
[2020-10-01] MEDS: Latanoprost 0.005% 1 Bottle 1 DRP EACH EYE (21:21)
[2020-10-01 21:55] LABS: Bedside Glucose 163 mg/dL (70-110)
--- NOTE | 2020-10-01 22:13 | NURSING ---
updated around 2014 that pt discharged was cancelled and will be discharged in the morning, oxygen will still be delivered tonight. voiced understanding and stated she will be in early tomorrow morning to be able to transport pt from the hospital to dialysis.
[2020-10-02 03:00] VITALS: PULSE 62
[2020-10-02 03:15] VITALS: BP 124/66; PULSE 60; RESP 16; TEMP 37.1; O2SAT 96
[2020-10-02 06:30] VITALS: BP 140/62; PULSE 60; RESP 18; TEMP 36.6; O2SAT 95
[2020-10-02 06:35] VITALS: BP 140/62; PULSE 60
[2020-10-02] MEDS: hydrALAZINE 50 MG Tablet 100 MG PO (06:35)
[2020-10-02] MEDS: cloNIDine HCl 0.1 MG Tablet PO (06:36)
[2020-10-02 06:46] LABS: Bedside Glucose 85 mg/dL (70-110)
[2020-10-02 06:51] VITALS: PULSE 59
[2020-10-02 07:54] LABS: Absolute Lymphocyte Count 0.46 X10^3/uL (0.83-4.51); Absolute Neutrophil Count 4.7 X10^3/uL (2.0-7.7); Basophil# 0.02 X10^3/uL; Basophil% 0.3 % (0-1); Eosinophil# 0.11 X10^3/uL; Eosinophils% 1.7 % (0-5); Hematocrit 28.2 % (40-54); Hemoglobin 8.6 g/dL (13.0-16.5); Lymphocyte # 0.46 X10^3/ul (4.0); Lymphocyte % 7.2 % (19-41); Mean Corp Hgb Conc 30.5 g/dL (32-36); Mean Corpuscular Hgb 27.5 pg (27.0-32.0); Mean Corpuscular Volume 90.1 fL (80-94); Mean Platelet Vol. 9.7 fl (6.2-12.0); Monocyte# 1.11 X10^3/uL; Monocyte% 17.3 % (0-10); NRBC Flagged by Analyzer 0 % (0-5); Neutrophil % 73.2 % (47-70); POSITIVE DIFFERENTIAL YES; Platelet Count 139 K/mm3 (150-450); RBC Distribution Width CV 16.2 % (11.6-14.6); RBC Distribution Width SD 53.3 fl (35.1-43.9); Red Blood Count 3.13 M/mm3 (4.6-6.2); White Blood Count 6.4 K/mm3 (4.4-11.0)
[2020-10-02 08:02] LABS: Differential Indicated SCAN CRITERIA MET
[2020-10-02 08:17] LABS: ALB/GLOB Ratio 0.8 RATIO (0.9-2.4); AST(SGOT) 25 U/L (15-37); Alanine Aminotransfer ALT/SGPT 13 U/L (16-61); Albumin, Serum 2.7 g/dL (3.2-5.0); Alkaline Phosphatase 148 U/L (45-117); Anion Gap 6 (5-15); BUN 65 mg/dL (7-18); Calcium,Total 7.9 mg/dL (8.5-10.1); Chloride 100 mmol/L (98-107); Creatinine, Serum 3.83 mg/dL (0.70-1.30); EST Glomerular Filtration Rate 17 mL/min (>60); Est Glom Filt Rate - Afr Amer 21 mL/min (>60); Estimated Creatinine Clearance 20.65 ml/min; Globulin 3.5 g/dL (2.2-4.2); Glucose 70 mg/dL (74-106); Protein, Total 6.2 g/dL (6.4-8.2); Sodium Level 136 mmol/L (136-145)
[2020-10-02 08:36] VITALS: BP 125/65; PULSE 60; RESP 16; TEMP 37.1; O2SAT 92
[2020-10-02 08:40] LABS: Crenated RBC 1+; Ovalocyte 1+
[2020-10-02] MEDS: Calcitriol 0.25 MCG Capsule 0.5 MCG PO (08:45)
[2020-10-02] MEDS: Carvedilol 25 MG Tablet PO (08:45)
[2020-10-02] MEDS: Aspirin E.C. 81 MG Tablet PO (08:45)
[2020-10-02] MEDS: Bumetanide 2 MG Tablet PO (08:46)
[2020-10-02] MEDS: Finasteride 5 MG Tablet PO (08:46)
[2020-10-02] MEDS: Minoxidil 2.5 MG Tablet PO (08:46)
[2020-10-02] MEDS: Doxazosin 4 MG Tablet PO (08:48)
[2020-10-02 08:55] LABS: Hepatitis B Core Ab Total Negative (Negative)
--- NOTE | 2020-10-06 14:23 | CASEMGMT ---
RN CM Discharge F/U Phone Call LACE: 12 Strata: 3 Discharge date: 10/02/20 Call date: 10/06/20, as pt had OP dialysis on 10/05/20 Call time: 1430 Attempted to reach pt without success at this time, message left with pt to call this RN CM back if/when able. SStaten RN CM Admission dx: Pulmonary edema secondary to CKD
== END 2020-10-02 10:07 | disposition home or self-care (01) | DRG 194 ==
LOC: ED 15:49 → PCU 16:28
PROVIDERS: Internal Medicine Nephrology; Surgery; Admitting Provider Internal Medicine; Emergency Provider Emergency Medicine; PCP Family Medicine; Visit Provider Internal Medicine
PROC: 0JH63XZ Insertion of Tunneled Vascular Access Device into Chest Subcutaneous Tissue and Fascia, Percutaneous Approach (ICD-10-PCS; principal; 2020-09-30 12:45)
DX: I13.2 Hypertensive heart and chronic kidney disease with heart failure and with stage 5 chronic kidney disease, or end stage renal disease (principal); E11.22 Type 2 diabetes mellitus with diabetic chronic kidney disease; N18.5 Chronic kidney disease, stage 5; I50.23 Acute on chronic systolic (congestive) heart failure; N17.9 Acute kidney failure, unspecified; I25.2 Old myocardial infarction; E87.1 Hypo-osmolality and hyponatremia; E78.00 Pure hypercholesterolemia, unspecified; R09.02 Hypoxemia; E66.3 Overweight; I25.5 Ischemic cardiomyopathy; M45.9 Ankylosing spondylitis of unspecified sites in spine; I25.10 Atherosclerotic heart disease of native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 angina pectoris; M1A.9XX0 Chronic gout, unspecified, without tophus (tophi); E11.40 Type 2 diabetes mellitus with diabetic neuropathy, unspecified; Z79.4 Long term (current) use of insulin; I27.20 Pulmonary hypertension, unspecified; N25.81 Secondary hyperparathyroidism of renal origin; I47.2 Ventricular tachycardia; E87.5 Hyperkalemia; D63.1 Anemia in chronic kidney disease; N40.0 Benign prostatic hyperplasia without lower urinary tract symptoms; Z95.1 Presence of aortocoronary bypass graft; Z99.2 Dependence on renal dialysis; Z79.82 Long term (current) use of aspirin; Z68.30 Body mass index [BMI] 30.0-30.9, adult; Z79.899 Other long term (current) drug therapy
CPT/HCPCS: 36415; 71045; 77001; 80048; 80053; 82962; 83036; 83735; 83880; 84100; 84484; 85025; 85610; 85730; 86704; 86706; 87340; 87426; 90937; 93005; 93970; 97116; 97162; 97530; 99251; 99285; J7030; J7120; 90686; A4216; C1750; G0257; G0463; J1940; J2405; J2597

== ENCOUNTER → 2020-10-06 14:59 | Outpatient (CLI) | payer MEDICAID, SELFPAY ==
[2020-08-26 11:34] VITALS: BMI 27.9
[2020-09-30 11:37] VITALS: BMI 30.7
[2020-10-06 15:11] VITALS: BP 162/72; PULSE 58; RESP 16; TEMP 36.2; O2SAT 96; BMI 26.9
[2020-10-06] MEDS: Epoetin Alfa epbx 10,000 UNITS/ML 20000 UNIT SC (15:33)
== END ==
PROVIDERS: PCP Family Medicine; Referring Provider Internal Medicine Nephrology; Visit Provider Internal Medicine Nephrology
DX: N18.30 Chronic kidney disease, stage 3 unspecified (principal); D63.1 Anemia in chronic kidney disease
CPT/HCPCS: 96372; 99211; G0463; Q5106

== ENCOUNTER → 2020-10-13 14:19 | Outpatient (CLI) | payer MEDICAID, SELFPAY ==
[2020-10-06 15:11] VITALS: BMI 26.9
[2020-10-13 14:35] LABS: Hematocrit 28.4 % (40-54); Hemoglobin 8.5 g/dL (13.0-16.5)
[2020-10-13 14:50] VITALS: BP 145/71; PULSE 61; RESP 16; TEMP 36.2; O2SAT 97; BMI 26.9
[2020-10-13 14:55] LABS: Albumin, Serum 3.1 g/dL (3.2-5.0); Anion Gap 3 (5-15); BUN 27 mg/dL (7-18); BUN/Creat Ratio 8.4 RATIO (10-20); Calcium,Total 8.8 mg/dL (8.5-10.1); Chloride 101 mmol/L (98-107); EST Glomerular Filtration Rate 21 mL/min (>60); Est Glom Filt Rate - Afr Amer 25 mL/min (>60); Ferritin 150 ng/mL (26-388); Glucose 179 mg/dL (74-106); Iron 32 ug/dL (65-175); Iron Binding Capacity,Total 345 ug/dL (250-450); Phosphorus 2.1 mg/dL (2.5-4.9); Potassium 3.8 mmol/L (3.5-5.1); Sodium Level 139 mmol/L (136-145)
[2020-10-13] MEDS: Epoetin Alfa epbx 10,000 UNITS/ML 20000 UNIT SC (14:58)
[2020-10-13 22:34] LABS: Xtra Tube EP Lab EXTRA TUBE
== END ==
PROVIDERS: PCP Family Medicine; Referring Provider Internal Medicine Nephrology; Visit Provider Internal Medicine Nephrology
DX: N18.30 Chronic kidney disease, stage 3 unspecified (principal); D64.9 Anemia, unspecified
CPT/HCPCS: 36415; 80048; 82040; 82728; 83540; 83550; 83970; 84100; 85014; 85018; 96372; Q5106

== ENCOUNTER 2020-10-20 14:29 | Outpatient (CLI) | payer MEDICAID, SELFPAY ==
[2020-10-06 15:11] VITALS: BMI 26.9
[2020-10-20 14:45] VITALS: BP 150/53; PULSE 56; RESP 16; TEMP 36.3; O2SAT 93; BMI 27.8
[2020-10-20] MEDS: Epoetin Alfa epbx 10,000 UNITS/ML 20000 UNIT SC (15:11)
== END 2020-10-20 16:56 | disposition home or self-care (01) ==
LOC: MEDOUTP 14:29
PROVIDERS: PCP Family Medicine; Referring Provider Internal Medicine Nephrology; Visit Provider Internal Medicine Nephrology
DX: N18.30 Chronic kidney disease, stage 3 unspecified (principal); D63.1 Anemia in chronic kidney disease
CPT/HCPCS: 96372; Q5106

== ENCOUNTER 2020-10-27 13:52 | Outpatient (CLI) | payer MEDICAID, SELFPAY ==
[2020-10-27 14:00] VITALS: BP 161/75; PULSE 61; RESP 16; TEMP 37; O2SAT 94; BMI 27.3
[2020-10-27 14:24] LABS: Hematocrit 33.9 % (40-54); Hemoglobin 10.3 g/dL (13.0-16.5)
[2020-10-27] MEDS: Epoetin Alfa epbx 10,000 UNITS/ML 20000 UNIT SC (14:56)
== END 2020-10-27 17:00 | disposition home or self-care (01) ==
LOC: MEDOUTP 13:52
PROVIDERS: PCP Family Medicine; Referring Provider Internal Medicine Nephrology; Visit Provider Internal Medicine Nephrology
DX: N18.30 Chronic kidney disease, stage 3 unspecified (principal); D63.1 Anemia in chronic kidney disease
CPT/HCPCS: 36415; 85014; 85018; 96372; Q5106

== ENCOUNTER → 2020-11-03 14:40 | Outpatient (CLI) | payer MEDICAID, SELFPAY ==
[2020-10-27 14:00] VITALS: BMI 27.3
[2020-11-01 10:49] VITALS: BMI 27.2
[2020-11-03 14:48] VITALS: BP 130/68; PULSE 59; RESP 16; TEMP 36.6; O2SAT 94; BMI 27.2
[2020-11-03] MEDS: Epoetin Alfa epbx 10,000 UNITS/ML 20000 UNIT SC (14:59)
== END ==
PROVIDERS: PCP Family Medicine; Referring Provider Internal Medicine Nephrology; Visit Provider Internal Medicine Nephrology
DX: N18.30 Chronic kidney disease, stage 3 unspecified (principal); D64.9 Anemia, unspecified
CPT/HCPCS: 96372; Q5106

== ENCOUNTER → 2020-11-10 14:17 | Outpatient (CLI) | payer MEDICAID, SELFPAY ==
[2020-11-03 14:48] VITALS: BMI 27.2
[2020-11-10 14:59] VITALS: BP 174/72; PULSE 60; RESP 16; TEMP 36.9; O2SAT 95; BMI 26.9
[2020-11-10] MEDS: Epoetin Alfa epbx 10,000 UNITS/ML 20000 UNIT SC (15:01)
== END ==
PROVIDERS: PCP Family Medicine; Referring Provider Internal Medicine Nephrology; Visit Provider Internal Medicine Nephrology
DX: N18.30 Chronic kidney disease, stage 3 unspecified (principal); D64.9 Anemia, unspecified
CPT/HCPCS: 96372; Q5106

== ENCOUNTER 2020-11-17 14:17 | Outpatient (CLI) | payer MEDICAID, SELFPAY ==
[2020-11-03 14:48] VITALS: BMI 27.2
[2020-11-17 14:23] VITALS: BP 141/81; PULSE 60; RESP 16; TEMP 36.1; O2SAT 95; BMI 27.2
[2020-11-17] MEDS: Epoetin Alfa epbx 10,000 UNITS/ML 20000 UNIT SC (14:42)
== END 2020-11-17 16:00 | disposition home or self-care (01) ==
LOC: MEDOUTP 14:17
PROVIDERS: PCP Family Medicine; Referring Provider Internal Medicine Nephrology; Visit Provider Internal Medicine Nephrology
DX: N18.30 Chronic kidney disease, stage 3 unspecified (principal); D63.1 Anemia in chronic kidney disease
CPT/HCPCS: 96372; Q5106

== ENCOUNTER → 2020-11-24 14:24 | Outpatient (CLI) | payer MEDICAID, SELFPAY ==
[2020-11-17 14:23] VITALS: BMI 27.2
[2020-11-24 15:01] LABS: Hematocrit 40.8 % (40-54); Hemoglobin 12.4 g/dL (13.0-16.5)
[2020-11-24 15:22] LABS: Albumin, Serum 3.4 g/dL (3.2-5.0); Anion Gap 2 (5-15); BUN 25 mg/dL (7-18); BUN/Creat Ratio 6.9 RATIO (10-20); Calcium,Total 8.7 mg/dL (8.5-10.1); Chloride 99 mmol/L (98-107); Creatinine, Serum 3.61 mg/dL (0.70-1.30); EST Glomerular Filtration Rate 18 mL/min (>60); Est Glom Filt Rate - Afr Amer 22 mL/min (>60); Ferritin 209 ng/mL (26-388); Glucose 162 mg/dL (74-106); Iron 48 ug/dL (65-175); Iron Binding Capacity,Total 297 ug/dL (250-450); Phosphorus 3.6 mg/dL (2.5-4.9); Sodium Level 135 mmol/L (136-145)
[2020-11-24 15:42] LABS: PTHIN 158.2 pg/mL (18.4-80.1)
[2020-11-24 22:50] LABS: Xtra Tube EP Lab EXTRA TUBE
== END ==
PROVIDERS: PCP Family Medicine; Referring Provider Internal Medicine Nephrology; Visit Provider Internal Medicine Nephrology
DX: N18.30 Chronic kidney disease, stage 3 unspecified (principal); D63.1 Anemia in chronic kidney disease
CPT/HCPCS: 36415; 80048; 82040; 82728; 83540; 83550; 83970; 84100; 85014; 85018

== ENCOUNTER 2022-04-22 19:29 | Emergency (ER) | payer MEDICARE, MEDICAID, SELFPAY ==
[2022-04-22 19:29] VITALS: BP 181/77; PULSE 77; RESP 18; TEMP 36.6; O2SAT 92; BMI 24.0
--- NOTE | 2022-04-22 20:05 | RAD_ITS ---
STUDY: X-RAY - RIGHT KNEE REASON FOR EXAM: Male, 66 years old. INJURY, pain, deformity TECHNIQUE: 2 view(s) of the knee. COMPARISON: None. FINDINGS: Knee replacement. Above the femoral implant, there is a comminuted fracture of the femoral metadiaphysis with nearly one shaft width displacement, foreshortening and mild angulation. Normal visualized proximal tibia and fibula. Normal proximal tibiofibular articulation. Normal medial femorotibial compartment. Normal lateral femorotibial compartment. Normal patellofemoral articulation. There are atherosclerotic calcifications. Diffuse soft tissue swelling. RAD/Knee 1 or 2 Views IMPRESSION: Distal right femoral fracture with displacement, angulation and foreshortening. Knee replacement. Electronically Signed: Mohsen Magallanes MD ([place]) at 20:20 EDT Reading Location ID and State: [facility] / [place] , Service support ,
[2022-04-22] MEDS: Ondansetron 4 MG/2 ML Vial IV (20:59)
[2022-04-22] MEDS: Morphine 4 MG/ML Syringe IV (20:59)
--- NOTE | 2022-04-22 21:14 | ED.VIS.FALL ---
HPI HPI - Fall History of Present Illness Chief Complaint: Fall Informant: patient Narrative Narrative: Patient stepped into a hole in his yard. Caused him to fall and hurt his knee. He felt fine prior to this. He had dialysis today as normal. He has not been ill recently. This was a mechanical fall and not syncope. He never hit his head. He takes baby aspirin every day but no other medicines causing degrees of anticoagulation. Patient has had prior surgeries to this right leg. He had a right knee replaced about 15 or 20 years ago. He had a right hip replacement 2018. He had an IM nail in the right femur prior to the hip that had to be removed. He sees Dr. Peguero at the [facility] in [place] and would like to go back there for care. He has had his surgeries done at [facility]. He would like to stay at [facility]. [facility] Medical History (Updated 04/22/22 @ 21:[address] Silviano Linda MD) Abscess of right foot Acute systolic heart failure Ankylosing spondylitis Atherosclerosis of [place] coronary artery of [place] heart without angina pectoris Biliary pleural effusion Bradycardia CAD (coronary artery disease) Cardiomyopathy CHF (congestive heart failure) Diabetes mellitus with neuropathy DM2 (diabetes mellitus, type 2) Essential hypertension Gout HTN (hypertension) Ischemic cardiomyopathy Leg edema Leg swelling NSTEMI (non-ST elevated myocardial infarction) Overweight (BMI 25.0-29.9) Pulmonary HTN Pure hypercholesterolemia Renal insufficiency Valvular heart disease Ventricular tachyarrhythmia Home Medications latanoprost 0.005 % eye drops 1 drp EACH EYE QHS 06/03/18 [History Last Taken 09/28/20] finasteride 5 mg tablet 5 mg PO DAILY PROSTATE 05/06/19 [History Last Taken 09/29/20] melatonin 5 mg tablet 10 mg PO HS PRN Sleep 08/02/20 [History Last Taken 09/28/20] acetaminophen 500 mg tablet 1,000 mg PO DAILY PRN Pain 1-10 Or Fever 09/29/20 [History Last Taken 09/29/20] aspirin 81 mg tablet,delayed release 81 mg PO DAILY HEART HEALTH #90 tabs 05/24/21 [Rx Last Taken Unknown] atorvastatin 40 mg tablet 40 mg PO QHS CHOLESTEROL #90 tabs 05/24/21 [Rx Last Taken Unknown] bumetanide 2 mg tablet 2 mg PO DAILY FLUID #90 tabs 05/24/21 [Rx Last Taken Unknown] carvedilol 12.5 mg tablet 12.5 mg PO BID #180 tabs 05/26/21 [Rx Last Taken Unknown] hydralazine 50 mg tablet 25 mg PO DAILY PRN elevated blood pressure #15 tabs 06/07/21 [Rx Last Taken Unknown] calcium carbonate 600 mg calcium (1,500 mg) tablet 800 mg PO TID 10/24/21 [History Last Taken Unknown] loratadine 10 mg capsule 10 mg PO DAILY 10/24/21 [History Last Taken Unknown] metolazone 2.5 mg tablet 2.5 mg PO DAILY PRN fluid 10/24/21 [History Last Taken Unknown] vitamin B complex-vitamin C-folic acid 0.8 mg tablet (Nephro-Savanah) 1 tab PO DAILY 10/24/21 [History Last Taken Unknown] doxazosin 2 mg tablet 2 mg PO DAILY 04/22/22 [History Last Taken Unknown] Allergy/AdvReac Type Severity Reaction Status Date / Time pregabalin [From Lyrica] Allergy Angioedema Verified 04/22/22 19:32 Family History Father CAD (coronary artery disease) Mother CAD (coronary artery disease) Surgical History History of cataract extraction History of open reduction and internal fixation (ORIF) procedure hx femur surgery Hx of arthroscopy Hx of CABG (~04/12/17) Social History Smoking Status: Former smoker alcohol intake: never substance use type: does not use caffeine: No what type of physical activity do you participate in: none seatbelt use: always do you feel safe at home: Yes ROS ROS ED Constitutional Constitutional ED: Denies chills or fever(s) Eyes Eyes: Denies change in vision ENT ENT ED: Denies sore throat Cardiovascular Cardiovascular: Denies chest pain, palpitations or racing heartbeat Respiratory/Chest Respiratory/Chest: Denies cough or dyspnea Gastrointestinal Gastrointestinal: Denies nausea or vomiting Musculoskeletal Musculoskeletal: Reports arthralgias; Denies back pain or neck pain Integumentary Denies rash Neurologic Neurologic: Denies headache(s) Endocrine Endocrinology: Denies polydipsia or polyuria Hematologic/Lymphatic Hematologic/Lymphatic: Denies easy bleeding, easy bruising or lymphadenopathy Allergic/Immunologic Allergic/Immunologic ED: Denies urticaria EXAM Physical Exam Const Vital Signs: 04/22/22 19:29 04/22/22 19:33 04/22/22 22:42 Temperature 98 F Temperature Source Oral Pulse Rate 77 67 Respiratory Rate 18 18 Respiratory Effort Normal Non-Labored Blood Pressure 181/77 H 103/54 L Blood Pressure Mean 111 70 Pulse Ox 92 70 Oxygen Delivery Method Room Air Room Air Room Air Oxygen Flow Rate (L/min) 04/22/22 22:49 04/22/22 23:55 Temperature 98.5 F Temperature Source Pulse Rate 68 Respiratory Rate 20 H Respiratory Effort Blood Pressure 134/64 H Blood Pressure Mean 87 Pulse Ox 92 98 Oxygen Delivery Method Nasal Cannula Oxygen Flow Rate (L/min) 2 Positive well nourished and well developed Constitutional Narrative: Patient looks surprisingly comfortable considering his x-ray findings General Appearance ED: well developed and NAD HEENT Reports normocephalic atraumatic Eyes General Eye ED: Negative for scleral icterus Neck General: Negative for tenderness Chest Wall inspection of chest normal Resp normal respiratory effort and clear to auscultation bilaterally Cardio regular rate GI non-tender Back/Spine no CVA tenderness Extremity Extremity Narrative: Patient has an Aircast splint on his leg. He does appear to have some swelling of mild deformity or above the knee. But for comfort this splint was not removed. There is no bleeding or puncture. Distal sensation is intact. Neuro oriented x3 Sensorium / Orientation: alert Psych mental status grossly normal Skin Skin Narrative: No diaphoresis. Lesions: no lesions MDM MDM MDM Narrative Medical decision making narrative: I discussed the case with Dr. Hammer who is covering for Dr. Peguero. They are happy to see the patient. It would be a physician other than Dr. Peguero doing the surgery. I explained this to the patient and he is okay with this plan. He would still prefer to go to [facility]. I have hospitalist on page as they recommended hospital admission due to this patient's history of heart disease, bypass surgery mild diabetes and kidney failure on dialysis. I discussed the case with Dr. Ahuja who is the hospitalist on. Patient will be transferred there Labs do show mild elevation in creatinine consistent with his disease. He has mildly low hemoglobin but this is common with renal disease. He has no history of recent bleeding. Lab Data Attestation: I reviewed the patient's lab results. Labs: Laboratory Results - last 24 hr 04/22/22 04/22/22 22:27 22:27 WBC 5.9 RBC 2.63 L Hgb 8.5 L Hct 26.0 L MCV 98.9 H MCH 32.3 H MCHC 32.7 RDW Std Deviation 53.1 H RDW Coeff of Yuri 14.8 H Plt Count 150 MPV 8.6 Immature Gran % (Auto) 0.300 Neut % (Auto) 74.8 H Lymph % (Auto) 13.2 L [place] % (Auto) 9.8 Eos % (Auto) 1.7 Baso % (Auto) 0.2 Absolute Neuts (auto) 4.4 Absolute Lymphs (auto) 0.78 L Nucleated RBC % 0 Sodium 141 Potassium 4.4 Chloride 102 Carbon Dioxide 33.0 H Anion Gap 6 BUN 33 H Creatinine 3.11 H Estim Creat Clear Calc 24.78 Est GFR (MDRD) Af Amer 26 L Est GFR (MDRD) Non-Af 22 L BUN/Creatinine Ratio 10.6 Glucose 108 H Calcium 8.5 Radiography Diagnostic Testing: Clinical Impression(s) from Imaging Studies Knee X-Ray 04/22/22 20:05 IMPRESSION: Distal right femoral fracture with displacement, angulation and foreshortening. Knee replacement. Electronically Signed: Mohsen Magallanes MD ([place]) at 20:20 EDT Reading Location ID and State: [facility] / [place] , Service support , Discharge Plan Triage Chief Complaint: Fall ED Provider: Silviano Linda Dx/Rx/DC Orders Clinical Impression: Fall at home, Femur fracture, right Prescriptions: No Action melatonin 5 mg tablet 10 mg PO HS PRN (Reason: Sleep) metolazone 2.5 mg tablet 2.5 mg PO DAILY PRN (Reason: fluid) loratadine 10 mg capsule 10 mg PO DAILY Nephro-Savanah 0.8 mg tablet 1 tab PO DAILY calcium carbonate 600 mg calcium (1,500 mg) tablet 800 mg PO TID latanoprost 1 DROP bottle 1 drp EACH EYE QHS acetaminophen 500 MG tablet 1,000 mg PO DAILY PRN (Reason: Pain 1-10 Or Fever) doxazosin 2 mg tablet 2 mg PO DAILY finasteride 5 mg tablet 5 mg PO DAILY aspirin 81 mg tablet,delayed release (DR/EC) 81 mg PO DAILY Qty: 90 3RF atorvastatin 40 mg tablet 40 mg PO QHS Qty: 90 3RF bumetanide 2 mg tablet 2 mg PO DAILY Qty: 90 3RF carvedilol 12.5 mg tablet 12.5 mg PO BID Qty: 180 3RF hydralazine 50 mg tablet 25 mg PO DAILY PRN (Reason: elevated blood pressure) Qty: 15 3RF Primary Care Provider: Blade Teixeira Referrals: Blade Teixeira MD [Primary Care Provider] - Disposition Disposition: Acute Care Hospital Discharge Location: [facility]
[2022-04-22 22:33] LABS: Absolute Lymphocyte Count 0.78 X10^3/uL (0.83-4.51); Absolute Neutrophil Count 4.4 X10^3/uL (2.0-7.7); Basophil# 0.01 X10^3/uL; Basophil% 0.2 % (0-1); Eosinophils% 1.7 % (0-5); Hemoglobin 8.5 g/dL (13.0-16.5); Lymphocyte # 0.78 X10^3/ul (0.83-4.51); Lymphocyte % 13.2 % (19-41); Mean Corp Hgb Conc 32.7 g/dL (32-36); Mean Corpuscular Hgb 32.3 pg (27.0-32.0); Mean Corpuscular Volume 98.9 fL (80-94); Mean Platelet Vol. 8.6 fl (6.2-12.0); Monocyte# 0.58 X10^3/uL; Monocyte% 9.8 % (0-10); NRBC Flagged by Analyzer 0 % (0-5); Neutrophil # 4.42 X10^3/uL (2.7-7.7); Neutrophil % 74.8 % (47-70); Platelet Count 150 K/mm3 (150-450); RBC Distribution Width CV 14.8 % (11.6-14.6); RBC Distribution Width SD 53.1 fl (35.1-43.9); Red Blood Count 2.63 M/mm3 (4.6-6.2); White Blood Count 5.9 K/mm3 (4.4-11.0)
[2022-04-22 22:42] VITALS: BP 103/54; PULSE 67; RESP 18; O2SAT 70
[2022-04-22 22:49] VITALS: O2SAT 92
[2022-04-22 22:50] LABS: Anion Gap 6 (5-15); BUN 33 mg/dL (7-18); BUN/Creat Ratio 10.6 RATIO (10-20); Calcium,Total 8.5 mg/dL (8.5-10.1); Chloride 102 mmol/L (98-107); Creatinine, Serum 3.11 mg/dL (0.70-1.30); EST Glomerular Filtration Rate 22 mL/min (>60); Est Glom Filt Rate - Afr Amer 26 mL/min (>60); Estimated Creatinine Clearance 24.78 ml/min; Glucose 108 mg/dL (74-106); Potassium 4.4 mmol/L (3.5-5.1); Sodium Level 141 mmol/L (136-145)
[2022-04-22 23:55] VITALS: BP 134/64; PULSE 68; RESP 20; TEMP 36.9; O2SAT 98
[2022-04-23] MEDS: Morphine 4 MG/ML Syringe IV (00:09)
--- NOTE | 2022-04-23 00:19 | ED.RN ---
This RN called report to [facility], spoke with [facility], [facility] to transport patient.
== END 2022-04-23 00:22 | disposition short-term general hospital (02) ==
PROVIDERS: Emergency Provider Emergency Medicine; PCP Family Medicine; Visit Provider Emergency Medicine
DX: S72.491A Other fracture of lower end of right femur, initial encounter for closed fracture (principal); Z99.2 Dependence on renal dialysis; I11.0 Hypertensive heart disease with heart failure; I50.9 Heart failure, unspecified; E11.40 Type 2 diabetes mellitus with diabetic neuropathy, unspecified; W17.2XXA Fall into hole, initial encounter; Y92.007 Garden or yard of unspecified non-institutional (private) residence as the place of occurrence of the external cause; I25.5 Ischemic cardiomyopathy; I25.10 Atherosclerotic heart disease of native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 angina pectoris; I25.2 Old myocardial infarction; E78.00 Pure hypercholesterolemia, unspecified; N28.9 Disorder of kidney and ureter, unspecified; Z95.1 Presence of aortocoronary bypass graft; Z96.641 Presence of right artificial hip joint; Z96.651 Presence of right artificial knee joint; Z79.82 Long term (current) use of aspirin; Z79.899 Other long term (current) drug therapy; Z87.891 Personal history of nicotine dependence
CPT/HCPCS: 73560; 80048; 85025; 87811; 96374; 96375; 96376; 99285; A4216; J2405

== ENCOUNTER 2022-12-20 17:00 | Outpatient (RCR) | payer MEDICARE, MEDICAID, SELFPAY ==
--- NOTE | 2022-07-24 11:45 | HP.PTEVAL ---
Patient's Visit Information SHARON QUINONES is a 66 year old M referred to Physical Therapy by Dr. Elsa Byrd MD with a diagnosis of Periprosthetic fx around internal prosthetic R hip joint s/p 04-28-22. Date of Evaluation: 07/24/22 Physical Therapist: APARNA Sneed - Visit Plan Frequency: 2-3x /Week Duration: 3 Months Plan: 2-3X/ week for up to 12 weeks for R hip strength, gait training, balance, functional strength such as stairs and curb steps with HEP - Subjective Pt fell on Apr 22 and had surgery 04-28-22 (Pt had a minesh with plate and screws and it is attached to hip and knee replacements). He was NWB for a long time but at he could start full weight bearing. He reports that it hurts a little bit to weight bear. He is still using a rolling walker. [facility] a [facility] and it was a bad experience because he did not have 1 hour everyday and it was not everyday. He signed himself out because he was not getting the care that he needed. He had home PT and just ended just recently. has not said anything about the walker other than he will be on it for awhile. He has not done stairs. He can not sleep in bed cause it hurts on the R side to sleep on it so he sleeps in a recliner - Pain R hip Pain Intensity (Out of 10): 0 - Objective Gait: walks with a wheeled walker with decrease stance time on the R LE and signs of weakness on the R and flexed trunk and very little hip ext B. I increased the height of his walker and he had slightly less trunk flexion. LE MMT: R hip flex 8.3# and L hip flex 13.4#. R knee ext 18# and L 25.2#. R knee flex 12.7# and L 13.9#. Supine hip abd R 14.7 and L 17.1. R SLR (extensor lag and needs AA). Pt is unable to raise his R leg into abd in L s/L position but he can do a clam shell. R knee AROM -10 degrees from full extension (has been this way since TKR on the R side since 20 years ago) and 98 degrees R knee flex. L knee ext -2 degree to 125 degrees L knee flex. Pt is able to get to AAROM 90 degrees hip flex on the R. Pt is able to do a LAQ with in the available ROM that he has. Pt is able to bridge but does not get full knee flexion on the R and only 25% normal Bridge ROM.... bothered his back at first but eased up and did 2 X 10 - Balance/Special Test Scores Lower Extremity Functional Score: 29 - Goals Goal 1:: I HEP Goal Time Frame: 8-12 Weeks Goal 2:: Be able to walk with upright posture and equal stance time on B LE's with least restrictive device. Goal Time Frame: 8-12 Weeks Goal 3:: Increase B LE strength (at time of the eval:R hip flex 8.3# and L hip flex 13.4#. R knee ext 18# and L 25.2#. R knee flex 12.7# and L 13.9#. Supine hip abd R 14.7 and L 17.1). Goal Time Frame: 8-12 Weeks Goal 4:: Be able to go up and down the stairs recip with a hand rail with SBA Goal Time Frame: 8-12 Weeks - Rehabilitation Potential Rehabilitation Potential: Good - Anticipated Interventions Patient/Client Instruction: Educate patient on: Condition, Plan of Care For the Purpose of:: To decrease pain, To increase ROM, To improve nutrient delivery to tissue, To improve muscle performance and motor function, To increase tolerance to activity/condition/position, To improve performance and independence with ADL's, To decrease level of supervision to perform tasks, To improve ability of physical actions for home/community/work/leisure, To improve gait and locomotor functions, To improve health of tissue, To improve balance, To improve safety with gait Therapeutic Exercise to Include: Strength training, Balance training, Gait and locomotor training, Neuromotor development, Active ROM, Dynamic Lumbar Stabilization For the Purpose of:: To decrease pain, To increase ROM, To improve nutrient delivery to tissue, To increase oxygenation perfusion, To improve muscle performance and motor function, To improve ability to perform ADL's, To increase tolerance to activity/condition/position, To improve performance and independence with ADL's, To decrease level of supervision to perform tasks, To improve ability of physical actions for home/community/work/leisure, To improve gait and locomotor functions, To improve health of tissue, To improve endurance, To improve balance Functional Training to Include: Gait training For the Purpose of:: To improve gait and locomotor functions, To improve safety with gait Thank you for the opportunity to evaluate your patient. For Medicare and Medicare HMO plans, please review the plan of care and approve it. It will need to be FAXED BACK to us at [phone] for Medicare purposes. For Medicare only, by signing this I certify the plan of care. Please let me know if there are questions or concerns regarding this plan of care. Physician Signature: Date:
--- NOTE | 2022-10-16 15:28 | HP.PTREVAL_ITS ---
Dr. Elsa Byrd MD, It has been my pleasure to treat SHARON QUINONES over the last 10 visits for Periprosthetic fx around internal prosthetic R hip joint s/p 04-28-22. Please see the progress note below for an update on the physical therapy plan of care! Subjective: The Dr released him. Dr wants him to stay on the walker through the winter. He is walking in the house with the cane. Pt reports that he does get tired with the cane. He has trouble with steps still. He is struggling with walking with his cane. He still feels that he has weakness. Objective/Function: LE strength. R hip flex 8.9# and L hip flex 13.4#. R knee ext 20.7# and L 17.5#. R knee flex 12.9# and L 13.9#. Supine hip abd R 14.7 and L 17.1. Stairs: Up with the L and then the R and pulls self up with the handrail. Gait with cane: 200 feet. walks with decreased stride length, wider [place], and R Leg does not clear the R step length especially when more tired. Pt able to step up with the R leg but he is very weak and has to pull self up with the railing. Gait with wheeled walker with flexed trunk and decreased R step length and decreased stance time on the R LE Plan Plan: Continue with progressive strengthening and try and build up walking endurance and safety with the cane and stair negoitiation. Have a call into [facility] about a day extension since pt did not start therapy until Sep 18. Balance/Gait/Functional tests - Balance/Special Test Scores Lower Extremity Functional Score: 37 Goals Goal 1:: I HEP Goal Time Frame: 8-12 Weeks Goal 2:: Be able to walk with upright posture and equal stance time on B LE's with least restrictive device. Goal Time Frame: 8-12 Weeks Goal Progress: Progressing Goal 3:: Increase B LE strength (at time of the eval:R hip flex 8.3# and L hip flex 13.4#. R knee ext 18# and L 25.2#. R knee flex 12.7# and L 13.9#. Supine hip abd R 14.7 and L 17.1). Goal Time Frame: 8-12 Weeks Goal Progress: Progressing Goal 4:: Be able to go up and down the stairs recip with a hand rail with SBA Goal Time Frame: 8-12 Weeks Anticipated Interventions Patient/Client Instruction: Educate patient on: Condition, Plan of Care For the Purpose of:: To decrease pain, To increase ROM, To improve nutrient delivery to tissue, To improve muscle performance and motor function, To inc rease tolerance to activity/condition/position, To improve performance and independence with ADL's, To decrease level of supervision to perform tasks, To improve ability of physical actions for home/community/work/leisure, To improve gait and locomotor functions, To improve health of tissue, To improve balance, To improve safety with gait Therapeutic Exercise to Include: Strength training, Balance training, Gait and locomotor training, Neuromotor development, Active ROM, Dynamic Lumbar Stabilization For the Purpose of:: To decrease pain, To increase ROM, To improve nutrient delivery to tissue, To increase oxygenation perfusion, To improve muscle performance and motor function, To improve ability to perform ADL's, To increase tolerance to activity/condition/position, To improve performance and independence with ADL's, To decrease level of supervision to perform tasks, To improve ability of physical actions for home/community/work/leisure, To improve gait and locomotor functions, To improve health of tissue, To improve endurance, To improve balance Functional Training to Include: Gait training For the Purpose of:: To improve gait and locomotor functions, To improve safety with gait Please do not hesitate to contact me at [phone] by phone or if you have questions or concerns regarding this new plan of care! Sincerely, APARNA Sneed
--- NOTE | 2022-12-20 17:33 | HP.PTREVAL_ITS ---
Dr. Elsa Byrd MD, It has been my pleasure to treat SHARON QUINONES over the last 19 visits for Periprosthetic fx around internal prosthetic R hip joint s/p 04-28-22. Please see the progress note below for an update on the physical therapy plan of care! Subjective: He is not using the walker unless the weather is really bad or if he goes to dialysis he will use it. He takes his cane to go into a store and push a cart. He got an injection below his R knee and he thinks that it did help. Objective/Function: hip flex 13# and L hip flex 13.4#. R knee ext 20.5# and L 25.#. R knee flex 14.7# and L 14.1#. Supine hip abd R 14.7 and L 14.8). Plan Plan: Continue with progressive strengthening and try and build up walking endurance and safety with the cane and stair negotiation. Balance/Gait/Functional tests - Balance/Special Test Scores Lower Extremity Functional Score: 49 Goals Goal 1:: I HEP Goal Time Frame: 8-12 Weeks Goal 2:: Be able to walk with upright posture and equal stance time on B LE's with least restrictive device. Goal Time Frame: 8-12 Weeks Goal Progress: Progressing Goal 3:: Increase B LE strength (at time of the eval:R hip flex 8.3# and L hip flex 13.4#. R knee ext 18# and L 25.2#. R knee flex 12.7# and L 13.9#. Supine hip abd R 14.7 and L 17.1). Goal Time Frame: 8-12 Weeks Goal Progress: Progressing Goal 4:: Be able to go up and down the stairs recip with a hand rail with SBA Goal Time Frame: 8-12 Weeks Anticipated Interventions Patient/Client Instruction: Educate patient on: Condition, Plan of Care For the Purpose of:: To decrease pain, To increase ROM, To improve nutrient delivery to tissue, To improve muscle performance and motor function, To inc rease tolerance to activity/condition/position, To improve performance and independence with ADL's, To decrease level of supervision to perform tasks, To improve ability of physical actions for home/community/work/leisure, To improve gait and locomotor functions, To improve health of tissue, To improve balance, To improve safety with gait Therapeutic Exercise to Include: Strength training, Balance training, Gait and locomotor training, Neuromotor development, Active ROM, Dynamic Lumbar Stabilization For the Purpose of:: To decrease pain, To increase ROM, To improve nutrient delivery to tissue, To increase oxygenation perfusion, To improve muscle performance and motor function, To improve ability to perform ADL's, To increase tolerance to activity/condition/position, To improve performance and independence with ADL's, To decrease level of supervision to perform tasks, To improve ability of physical actions for home/community/work/leisure, To improve gait and locomotor functions, To improve health of tissue, To improve endurance, To improve balance Functional Training to Include: Gait training For the Purpose of:: To improve gait and locomotor functions, To improve safety with gait Please do not hesitate to contact me at [phone] by phone or if you have questions or concerns regarding this new plan of care! Sincerely, Zainab Ramsey MPT
--- NOTE | 2023-01-02 10:47 | HP.PTDCNRP_ITS ---
SHARON QUINONES was seen in my office for initial evaluation on 07/24/22. The following Plan of Care was established for this patient: Initial Frequency: 2-3x /Week Initial Duration: 3 Months Patient/Client Instruction: Educate patient on: Condition, Plan of Care For the Purpose of:: To decrease pain, To increase ROM, To improve nutrient delivery to tissue, To improve muscle performance and motor function, To increase tolerance to activity/condition/position, To improve performance and independence with ADL's, To decrease level of supervision to perform tasks, To improve ability of physical actions for home/community/work/leisure, To improve gait and locomotor functions, To improve health of tissue, To improve balance, To improve safety with gait Therapeutic Exercise to Include: Strength training, Balance training, Gait and locomotor training, Neuromotor development, Active ROM, Dynamic Lumbar Stabilization For the Purpose of:: To decrease pain, To increase ROM, To improve nutrient delivery to tissue, To increase oxygenation perfusion, To improve muscle performance and motor function, To improve ability to perform ADL's, To increase tolerance to activity/condition/position, To improve performance and independen ce with ADL's, To decrease level of supervision to perform tasks, To improve ability of physical actions for home/community/work/leisure, To improve gait and locomotor functions, To improve health of tissue, To improve endurance, To improve balance Functional Training to Include: Gait training For the Purpose of:: To improve gait and locomotor functions, To improve safety with gait This patient was last seen in our office . Pertinent comments regarding their Physical therapy will appear below: At this point I will be discontinuing this patient from physical therapy. I would be happy to see this patient again in the future if found appropriate by the physician. Thank you! Zainab Ramsey, MPT Balance/Gait/Functional tests - Balance/Special Test Scores Lower Extremity Functional Score: 49
== END 2022-12-20 19:00 | disposition home or self-care (01) ==
LOC: PT 17:00
PROVIDERS: PCP Family Medicine; Referring Provider Orthopaedic Surgery; Visit Provider Orthopaedic Surgery
DX: M97.01XD Periprosthetic fracture around internal prosthetic right hip joint, subsequent encounter (principal)
CPT/HCPCS: 97110; 97161; 97530

== ENCOUNTER 2024-12-11 14:12 | Inpatient (IN) | payer MEDICARE, MEDICAID, SELFPAY ==
[2024-12-11 14:17] VITALS: BP 140/98; PULSE 79; RESP 18; TEMP 36.4; O2SAT 97
--- NOTE | 2024-12-11 14:37 | EKG12_ITS ---
Test Reason : Blood Pressure : */* mmHG Vent. Rate : 89 BPM Atrial Rate : * BPM P-R Int : * ms QRS Dur : 162 ms QT Int : 428 ms P-R-T Axes : * 240 72 degrees QTcB Int : 520 ms Atrial fibrillation Right bundle branch block Abnormal ECG Cannot rule out anterior NC-old Confirmed by Will Claire ([id number]), commissioning editor BRYCE DIMAS ([id number]) on 12/12/2024 12:44:28 PM Referred By: Confirmed By: Will Claire
--- NOTE | 2024-12-11 15:10 | RAD_ITS ---
PROCEDURE: CHEST PA AND LATERAL 12/11/2024 REASON FOR EXAM: COUGH AND SHORTNESS OF BREATH, HISTORY OF CHF TECHNIQUE: Frontal and lateral views of the chest. COMPARISON: None FINDINGS: Hardware: Sternotomy wires are present. Heart: Heart size is mildly enlarged. CABG. Mediastinum: Prominent pulmonary vessels and epicardial fat. Lungs: Bilateral lower lung peripheral septal thickening. No focal consolidation or pleural effusion. RAD/Chest PA and Lateral IMPRESSION: CHF exacerbation. Reading [facility]
[2024-12-11 15:19] LABS: Basophil# 0.06 X10^3/uL; Basophil% 0.7 % (0-1); Eosinophil# 0.08 X10^3/uL; Eosinophils% 0.9 % (0-5); Hematocrit 37.2 % (40-54); Lymphocyte % 7.7 % (19-41); Mean Corp Hgb Conc 34.9 g/dL (32-36); Mean Corpuscular Hgb 32.4 pg (27.0-32.0); Mean Corpuscular Volume 92.8 fL (80-94); Mean Platelet Vol. 10.1 fl (6.2-12.0); Monocyte# 1.18 X10^3/uL; NRBC Flagged by Analyzer 0 % (0-5); Neutrophil % 77.3 % (47-70); Platelet Count 120 K/mm3 (150-450); RBC Distribution Width SD 56.2 fl (35.1-43.9); Red Blood Count 4.01 M/mm3 (4.6-6.2); White Blood Count 9.1 K/mm3 (4.4-11.0)
--- NOTE | 2024-12-11 15:20 | EDS_ITS ---
HPI History of Present Illness Chief Complaint: Nausea/Vomiting Detail of Chief Complaint: Upper respiratory symptoms, nausea vomiting generalized weak Informant: patient and spouse/S.O. Onset/Context/Timing Onset: Days (Symptoms started day he missed his dialysis, December 09) Context: Sudden Onset Timing: Continuous and Waxes and wanes Quality: General weakness, respiratory symptoms, nausea vomiting Location: Vague generalized Current Severity: Mild Maximum Severity: Moderate Worsened by: Nothing Relieved by: Nothing Associated Symptoms Associated Symptoms: Poor p.o. intake, decreased urine output Narrative Narrative: Patient is a 69-year-old male when I entered the room he and his significant other told me that the dialysis unit wants him tested for COVID. Attempted to ask questions and again I was informed he needs to be tested for COVID. Patient has not felt well since December 09. He did not go to dialysis on Sunday and did not go to his dialysis appointment today. He has chronic stable orthopnea. He also has pain in his right lower extremity that limits how flat he can lie. He does endorse swelling of his lower extremities. He denies fever, chills night sweats. He denies headache, double vision blurred vision loss of vision. Denies ear pain, ear drainage or ringing in his ears. He does endorse mild nasal congestion. He does endorse mild throat discomfort with coughing. His cough is nonproductive. He does endorse some mild dyspnea with activity. He denies PND. He denies chest discomfort. He denies abdominal pain. He does have nausea and vomiting. He denies hematemesis or coffee-ground emesis. He denies black or maroon-colored stool. His lower extremity exam are swollen compared to normal. He also has some slight discoloration. He denies history of DVT. Prior similar symptoms: Yes Recent Illness/H[facility]: [facility] Medical History C. difficile diarrhea Anemia History of GI bleed Pure hypercholesterolemia Ischemic cardiomyopathy Essential hypertension Renal insufficiency Ankylosing spondylitis CAD (coronary artery disease) Overweight (BMI 25.0-29.9) Leg edema Leg swelling Acute systolic heart failure Bradycardia Biliary pleural effusion HTN (hypertension) Ventricular tachyarrhythmia Atherosclerosis of [place] coronary artery of [place] heart without angina pectori s Pulmonary HTN Cardiomyopathy Valvular heart disease NSTEMI (non-ST elevated myocardial infarction) CHF (congestive heart failure) Abscess of right foot Diabetes mellitus with neuropathy Gout DM2 (diabetes mellitus, type 2) Home Medications ?Medication ?Instructions ?Recorded ?Last Taken ?Type latanoprost 0.005 % eye drops 1 drp EACH EYE QHS 06/0309/28/20 History melatonin 5 mg tablet 10 mg PO HS PRN Sleep 09/28/20 History acetaminophen 500 mg tablet 1,000 mg PO DAILY PRN Pain 1-10 Or 09/29/20 09/29/20 History Fever loratadine 10 mg capsule 10 mg PO DAILY 10/24/21 Unkn own History metolazone 2.5 mg tablet 2.5 mg PO DAILY PRN fluid Unknown History sevelamer carbonate 800 mg tablet 800 mg PO TID Unknown History handicap placcard #1 ea 07/07/22 Unknown Rx hydralazine 50 mg tablet 25 mg PO DAILY PRN elevated blood 07/07/22 Unknown History pressure aspirin 81 mg tablet,delayed 81 mg PO DAILY #90 tabs 0 04/23/24 Unknown Rx release (Adult Aspirin Regimen) pantoprazole 40 mg tablet,delayed See Rx Instructions .Route 06/19/24 Unknown Rx release .COMPLEX #180 tabs bumetanide 2 mg tablet 2 mg PO DAILY FLUID #90 tabs 07/09/24 Unknown Rx atorvastatin 40 mg tablet See Rx Instructions .Route 1 09/20/23 Unknown Rx .COMPLEX #90 tabs carvedilol 12.5 mg tablet See Rx Instructions .Route 1 09/20/23 Unknown Rx .COMPLEX #180 tabs hydroxyzine HCl 25 mg tablet 25 mg PO Q6 PRN itch 12/19 Unknown History insulin glargine 100 unit/mL (3 10 unit subcut QPM 12/19 Unknown History mL) subcutaneous pen (Lantus Solostar U-100 Insulin) tadalafil 20 mg tablet 20 mg PO QDAY PRN 10/28/24 U nknown History tramadol 50 mg tablet 50 mg PO Q8H PRN 10/28/24 Un known History doxazosin 2 mg tablet 2 mg PO DAILY #90 tabs 11/27 Unknown Rx Allergy/AdvReac Type Severity Reaction Status Date / Time pregabalin (From Lyrica) Allergy Angioedema Verified 12/11/24 14:17 Family History Father CAD (coronary artery disease) Mother CAD (coronary artery disease) Surgical History History of cataract extraction hx femur surgery Hx of arthroscopy History of open reduction and internal fixation (ORIF) procedure Hx of CABG (~04/12/17) Social History Smoking Status: Former smoker alcohol intake: never substance use type: does not use caffeine: No what type of physical activity do you participate in: none seatbelt use: always do you feel safe at home: Yes ROS ROS ED Constitutional Constitutional ED: Denies chills, fever(s), subjective, sweats or weight loss Eyes Eyes: Denies blurry vision, change in vision or diplopia ENT ENT ED: Reports sore throat; Denies ear pain or rhinorrhea Cardiovascular Cardiovascular: Reports orthopnea; Denies chest pain, palpitations or paroxysmal nocturnal dyspnea Respiratory/Chest Respiratory/Chest: Reports cough, dyspnea, dyspnea on exertion and orthopnea; Denies paroxysmal nocturnal dyspnea or sputum Gastrointestinal Gastrointestinal: Reports nausea and vomiting; Denies abdominal pain, diarrhea or melena Genitourinary Genitourinary ED: Reports other Details: Decreased urine output. ; Denies dysuria, hematuria or urinary frequency Musculoskeletal Musculoskeletal: Denies arthralgias or myalgias Integumentary Reports rash Neurologic Neurologic: Reports weakness; Denies headache(s) or paresthesias Endocrine Endocrinology: Denies cold intolerance or heat intolerance Hematologic/Lymphatic Hematologic/Lymphatic: Reports systems reviewed and no addt'l complaints, except as documented EXAM Physical Exam Const Vital Signs: 12/11/24 14:17 Temperature 97.6 F L Temperature Source Oral Pulse Rate 79 Respiratory Rate 18 Blood Pressure 140/98 H Blood Pressure Mean 112 Pulse Ox 97 Oxygen Delivery Method Room Air Positive well nourished and well developed General Appearance ED: well developed and NAD; Negative for cyanotic, diaphoretic or pallor HEENT Reports dry mucous membranes HEENT Narrative: Head is atraumatic normocephalic. Ears normal. Nares patent. Posterior pharynx is normal. Uvula midline. No deviation with protrusion Mouth ED: Yes dry mucous membranes Mouth: dry mucous membranes Eyes PERRL and EOMs intact bilaterally General Eye ED: Negative for pale conjunctiva or scleral icterus Neck no lymphadenopathy, supple and no JVD Chest Wall inspection of chest normal and palpation of chest normal Resp normal respiratory effort Auscultation: rales bilateral base Cardio regular rate, regular rhythm, S1 normal heart sound, S2 normal heart sound and no murmurs GI normal to inspection, nondistended, normoactive bowel sounds, non-tender, non- distended and no masses; Negative for hepatosplenomegaly Palpation: soft Back/Spine no CVA tenderness Extremity Negative for normal to inspection Extremity Narrative: Venous stasis dermatitis. (Mild) General Extremety ED: Yes edema and tenderness General Extremity: edema Neuro oriented x3 and CN's II-XII intact bilaterally Sensorium / Orientation: alert Psych mental status grossly normal Skin no rashes or lesions noted and No skin turgor normal General Skin Exam: Negative for elasticity normal, jaundice or pallor MDM MDM MDM Narrative Medical decision making narrative: Will test for COVID. Will obtain chest x-ray to assess for fluid overload, pneumonia, pleural effusion. CBC to assess white count and H&H. Electrolyte panel to assess for hyperkalemia since he has missed 2 dialysis appointments and has not been dialyzed since last Sunday. History & Record Review Additional record(s) reviewed:: Prior inpatient record (Inpatient note by internal medicine [facility] physician. Also office visit for dialysis catheter. Discharge note authored by Dr. Delvalle still September 2020.), Prior outpatient record (Seen for vitreal retinal consultation with Dr. Roth on April 2023. Office visit with Dr. Teixeira for atherosclerotic heart disease.), Prior ED visit and Prior labs Lab Data Attestation: I reviewed the patient's lab results. Lab results narrative: CBC is unremarkable. Rapid antigen for COVID, RSV and influenza are all negative. Labs: Laboratory Results - last 24 hr 12/11/24 14:35 WBC 9.1 RBC 4.01 L Hgb 13.0 Hct 37.2 L MCV 92.8 MCH 32.4 H MCHC 34.9 RDW Std Deviation 56.2 H RDW Coeff of Yuri 17.0 H Plt Count 120 L MPV 10.1 Immature Gran % (Auto) 0.400 Neut % (Auto) 77.3 H Lymph % (Auto) 7.7 L Mchenry % (Auto) 13.0 H Eos % (Auto) 0.9 Baso % (Auto) 0.7 Absolute Neuts (auto) 7.0 Absolute Lymphs (auto) 0.70 L Nucleated RBC % 0 Radiography Chest X-Ray - ED: 2 View, Read by ED Physician (Patient has some mild fluid overload with fluffiness of the hilum and curly B-lines noted. Inspiratory volume is limited. There is no effusion. There is no infiltrate. There is no acute abnormality of the osseous structures. This is a 20 reviewed interpreted by me at 1520.), Heart and Bony Structures EKG Initial EKG: Attestation: I personally reviewed and interpreted this EKG as follows: Interpretation: Atrial Fibrillation (Rate is 89. There is evidence of right bundle branch block. QRS duration 162 ms. QT duration 128 ms. [place] of the right. There is no acute ischemic changes. There is no changes that are concerning for hyperkalemia i.e. peaked T waves. Will need old to determine if this is a new right bundle br) Discharge Plan Triage Chief Complaint: Nausea/Vomiting ED Provider: Rafa Felder Dx/Rx/DC Orders Prescriptions: No Action melatonin 5 mg tablet 10 mg PO HS PRN (Reason: Sleep) metolazone 2.5 mg tablet 2.5 mg PO DAILY PRN (Reason: fluid) loratadine 10 mg capsule 10 mg PO DAILY sevelamer carbonate 800 mg tablet 800 mg PO TID Rx Instructions: must administer with a meal/food hydralazine 50 mg tablet 25 mg PO DAILY PRN (Reason: elevated blood pressure) (DME) handicap placcard See Rx Instructions .Route .MEDSUPPLY Qty: 1 0RF Rx Instructions: Dx: Debility Exp: 5 years tadalafil 20 mg tablet 20 mg PO QDAY PRN hydroxyzine HCl 25 mg tablet 25 mg PO Q6 PRN (Reason: itch) insulin glargine [Lantus Solostar U-100 Insulin] 100 unit/mL (3 mL) insulin pen 10 unit subcut QPM tramadol 50 mg tablet 50 mg PO Q8H PRN latanoprost 1 DROP bottle 1 drp EACH EYE QHS acetaminophen 500 MG tablet 1,000 mg PO DAILY PRN (Reason: Pain 1-10 Or Fever) aspirin [Adult Aspirin Regimen] 81 mg tablet,delayed release (DR/EC) 81 mg PO DAILY Qty: 90 3RF pantoprazole 40 mg tablet,delayed release (DR/EC) See Rx Instructions .ROUTE .COMPLEX Qty: 180 3RF Dose Instruction: TAKE 1 TABLET BY MOUTH TWICE A DAY Rx Instructions: TAKE 1 TABLET BY MOUTH TWICE A DAY bumetanide 2 mg tablet 2 mg PO DAILY Qty: 90 3RF atorvastatin 40 mg tablet See Rx Instructions .ROUTE .COMPLEX Qty: 90 3RF Dose Instruction: TAKE 1 TABLET AT BEDTIME FOR CHOLESTEROL Rx Instructions: TAKE 1 TABLET AT BEDTIME FOR CHOLESTEROL carvedilol 12.5 mg tablet See Rx Instructions .ROUTE .COMPLEX Qty: 180 3RF Dose Instruction: TAKE 1 TABLET TWICE A DAY Rx Instructions: TAKE 1 TABLET TWICE A DAY (hold morning of dialysis) doxazosin 2 mg tablet 2 mg PO DAILY Qty: 90 3RF Rx Instructions: Hold morning of dialysis. Primary Care Provider: Blade Teixeira Referrals: Blade Teixeira MD [Primary Care Provider] - Print Language: Faroese
[2024-12-11 16:07] LABS: Anion Gap 26 (5-15); BUN 124 mg/dL (4-19); BUN/Creat Ratio 15.4 RATIO (10-20); Chloride 84 mmol/L (98-108); Creatinine, Serum 8.04 mg/dL (0.70-1.20); EST Glomerular Filtration Rate 7 (>60); Glucose 88 mg/dL (70-99); Potassium 5.9 mmol/L (3.3-5.1); Sodium Level 131 mmol/L (133-145)
[2024-12-11 16:16] VITALS: BP 97/71; PULSE 76; RESP 20; O2SAT 93
--- NOTE | 2024-12-11 16:52 | PCM.HP.STD ---
HPI - General General Date of Admission: 12/11/24 Date of Service: 12/11/24 Chief Complaint: Missed HD x 2, fatigue, malaise, N/V, dyspnea, increased edema/weight gain/orthopnea, cough. HPI Narrative The patient is a 69 y/o M w/ PMHx: Diabetes mellitus type II, HTN, HLD, HFrEF/ischemic cardiomyopathy, CAD, Pulmonary HTN, Ankylosing spondylitis, GERD w/ Hx GI bleed, Hx C. difficile diarrhea/colitis, ESRD on HD, Valvular Heart Disease, CAD status post CABG, Former tobacco use who presents to the [facility] ED on 12/11/24 with history of recently missing 2 sessions of HD and following then onset of reported URI type symptoms including mild dyspnea, worse with exertion, cough, sore throat with fatigue, malaise and persistent nausea and emesis noted to be waxing and waning with poor oral intake and decreased urine output as he notes he still makes urine with chronic stable orthopnea as well as chronic distal lower extremity swelling and pain with no recent fevers or chills nor any associated abdominal pain nor any abnormal looking emesis but given inability to maintain appropriate oral intake and GI losses prompted ED evaluation. He notes in the past when he has been sick and missed 2 dialysis sessions he is never had the issues he is having currently. He reports significant recent issues managing dry weight and notes that cardiology has altered his medications with recent addition of metolazone. He notes that he was also recently taken off of his beta-rufus therapy secondary to issues with low blood pressure with dialysis. Workup in the ED included T97.6, heart rate 79, BP 140/98, respiratory rate 18, 97% room air, CBC with WBC 9.1, hemoglobin 13, platelet 120 with lymphopenia, BMP with sodium 131, potassium 5.9, chloride 84, chest x-ray with congestion, EKG with atrial fibrillation rate controlled with no acute evidence of ischemia and no concern for peaked T waves. [facility] Medical History C. difficile diarrhea Anemia History of GI bleed Pure hypercholesterolemia Ischemic cardiomyopathy Essential hypertension Renal insufficiency Ankylosing spondylitis CAD (coronary artery disease) Overweight (BMI 25.0-29.9) Leg edema Leg swelling Acute systolic heart failure Bradycardia Biliary pleural effusion HTN (hypertension) Ventricular tachyarrhythmia Atherosclerosis of [place] coronary artery of [place] heart without angina pectoris Pulmonary HTN Cardiomyopathy Valvular heart disease NSTEMI (non-ST elevated myocardial infarction) CHF (congestive heart failure) Abscess of right foot Diabetes mellitus with neuropathy Gout DM2 (diabetes mellitus, type 2) Home Medications ?Medication ?Instructions ?Recorded ?Last Taken ?Type latanoprost 0.005 % eye drops 1 drp EACH EYE QHS 06/03/18 12/10/24 History melatonin 5 mg tablet 10 mg PO HS PRN Sleep 08/02/20 12/10/24 History loratadine 10 mg capsule 10 mg PO DAILY PRN allergy symptoms 10/24/21 12/10/24 History sevelamer carbonate 800 mg tablet 800 mg PO TID 05/30/22 12/10/24 History handicap placcard #1 ea 07/07/22 Unknown Rx aspirin 81 mg tablet,delayed 81 mg PO DAILY #90 tabs 04/23/24 12/10/24 Rx release (Adult Aspirin Regimen) bumetanide 2 mg tablet 2 mg PO DAILY FLUID #90 tabs 07/09/24 12/10/24 Rx hydroxyzine HCl 25 mg tablet 25 mg PO Q6 PRN itch 10/28/24 12/10/24 History insulin glargine 100 unit/mL (3 10 unit subcut QPM 10/28/24 Unknown History mL) subcutaneous pen (Lantus Solostar U-100 Insulin) tadalafil 20 mg tablet 20 mg PO DAILY PRN sexual activity 10/28/24 Unknown History atorvastatin 40 mg tablet 40 mg PO DAILY 12/11/24 12/10/24 History benzonatate 100 mg capsule 100 mg PO TID PRN cough 12/11/24 12/10/24 History metolazone 5 mg tablet 5 mg PO DAILY 12/11/24 12/10/24 History pantoprazole 40 mg tablet,delayed 40 mg PO BID 12/11/24 12/10/24 History release trazodone 50 mg tablet 50 mg PO QHS 12/11/24 12/10/24 History vitamin B complex-vitamin C-folic 1 tab PO DAILY 12/11/24 12/10/24 History acid 0.8 mg tablet (Dialyvite 800) Allergy/AdvReac Type Severity Reaction Status Date / Time pregabalin (From Lyrica) Allergy Angioedema Verified 12/11/24 14:17 Family History Father CAD (coronary artery disease) Mother CAD (coronary artery disease) Surgical History History of cataract extraction hx femur surgery Hx of arthroscopy History of open reduction and internal fixation (ORIF) procedure Hx of CABG (~04/12/17) Social History (Updated 12/11/24 @ 17:[address] Mary Jo Granados MD) household members: spouse Smoking Status: Former smoker alcohol intake: never substance use type: does not use caffeine: No what type of physical activity do you participate in: none seatbelt use: always do you feel safe at home: Yes ROS ROS Narrative Admission Review of Systems: CONSTITUTIONAL: No weight loss, fever, chills, + weakness or fatigue. HEENT: + Sore throat, congestion, rhinorrhea. Eyes: No visual loss, blurred vision, double vision or yellow sclerae. Ears, Nose, Throat: No hearing loss, sneezing. SKIN: No rash or itching, lesions, wounds. CARDIOVASCULAR: + Chronic distal edema, orthopnea. No chest pain, chest pressure or chest discomfort, palpitations, syncopal events. RESPIRATORY: + Dyspnea, worse with exertion, cough not markedly productive. No wheezing, hemoptysis. GASTROINTESTINAL: + Anorexia/lack of appetite, nausea, vomiting. No diarrhea, abdominal pain, melena, BRBPR. GENITOURINARY: + Decreased urine output. No dysuria, frequency, urgency or retention. NEUROLOGICAL: No headache, dizziness, syncope, paralysis, ataxia, numbness or tingling in the extremities, focal weakness, change in bowel or bladder control, seizure. MUSCULOSKELETAL: + muscle, back pain, joint pain or stiffness. HEMATOLOGIC: + Chronic anemia, easy bleeding/bruising. LYMPHATICS: No enlarged nodes. No history of splenectomy. PSYCHIATRIC: No history of depression or anxiety. ENDOCRINOLOGIC: + reports of sweating, cold or heat intolerance. No polyuria or polydipsia. ALLERGIES: No history of asthma, hives, eczema or rhinitis. Vital Signs Vital Signs Vital Signs: 12/11/24 14:17 Temperature 97.6 F L Temperature Source Oral Pulse Rate 79 Respiratory Rate 18 Blood Pressure 140/98 H Blood Pressure Mean 112 Pulse Ox 97 Oxygen Delivery Method Room Air Physical Exam Narrative Physical Examination: General: Awake, alert, oriented x 3 and cooperative, seated upright in the ED bed, mildly altered speech secondary to not having dentures in place. Skin: Normal color, normal turgor, no icterus, no cyanosis except very stage ecchymoses, abrasion, bilateral lower extremity venous stasis skin changes. HEENT: AT/NC, EOMI, PERRLA, MMM, no carotid bruits, + JVD noted. Lungs: Diminished, greater bases, mildly increased respiratory rate but no distress, rales/crackles bilaterally especially posteriorly, no rhonchi or wheezing. Heart: Irregular, rate controlled; no gallop, rub audible, + SM Abdomen: Soft, NTTP, ND, distant normal BS, no appreciated HSM. Extremities: No cyanosis, no clubbing, pedal to proximal nieto 2+ pitting edema, left upper extremity with + thrill. Neurological: Patient awake, alert, oriented as noted, cognitive function intact; pupils equally reactive to light and accommodation, cranial nerves gross normal, moving all 4 extremities, no focal deficits, strength moderately to severely globally decreased secondary to acute presentation. Psychiatric: Affect appears fatigued, no acute evidence of depressive or anxiety feelings. Results Lab / Micro Data 12/11/24 14:35 12/11/24 14:35 Labs: Laboratory Results - last 24 hr 12/11/24 14:35: WBC 9.1, RBC 4.01 L, Hgb 13.0, Hct 37.2 L, MCV 92.8, MCH 32.4 H, MCHC 34.9, RDW Std Deviation 56.2 H, RDW Coeff of Yuri 17.0 H, Plt Count 120 L, MPV 10.1, Immature Gran % (Auto) 0.400, Neut % (Auto) 77.3 H, Lymph % (Auto) 7.7 L, [place] % (Auto) 13.0 H, Eos % (Auto) 0.9, Baso % (Auto) 0.7, Absolute Neuts (auto) 7.0, Absolute Lymphs (auto) 0.70 L, Nucleated RBC % 0, Sodium 131 L, Potassium 5.9 H, Chloride 84 L, Carbon Dioxide 21.0, Anion Gap 26 H, BUN 124 H*, Creatinine 8.04 H*, Est GFR (MDRD) Non-Af 7 L, BUN/Creatinine Ratio 15.4, Glucose 88, Calcium 10.0 Micro: Microbiology 12/11/24 14:42 Mucosa - Nose SARS-CoV-2, Influenza & RSV (PCR) - Final Imaging Radiology Impression Chest X-Ray 12/11/24 15:10 IMPRESSION: CHF exacerbation. Reading Location: [facility] Assessment & Plan Assessment/Plan (1) Acute hyperkalemia: (2) Hyponatremia: (3) Fluid overload: (4) Acute uremia: PLAN: Plan The patient is a 69 y/o M w/ PMHx: Diabetes mellitus type II, HTN, HLD, HFrEF/ischemic cardiomyopathy, CAD, Pulmonary HTN, Ankylosing spondylitis, GERD w/ Hx GI bleed, Hx C. difficile diarrhea/colitis, ESRD on HD, Valvular Heart Disease, CAD status post CABG, Former tobacco use who presents to the [facility] ED on 12/11/24 with history of recently missing 2 sessions of HD and following then onset of reported URI type symptoms including mild dyspnea, worse with exertion, cough, sore throat with fatigue, malaise and persistent nausea and emesis noted to be waxing and waning with poor oral intake and decreased urine output as he notes he still makes urine with chronic stable orthopnea as well as chronic distal lower extremity swelling and pain with no recent fevers or chills nor any associated abdominal pain nor any abnormal looking emesis but given inability to maintain appropriate oral intake and GI losses prompted ED evaluation. #1. Acute Decompensated HFrEF/ischemic cardiomyopathy suspected secondary to primarily missing dialysis x 2 sessions, complicated by onset of intractable nausea and emesis possibly because of uremia: Will admit to PCU, maintain on cardiac telemetry, monitor I/Os, maintain on intake restriction, ECHO requested as none noted since 2021, IV laxis until HD available, nephrology consulted for dialysis preferentially today, continue medical therapy, magnesium level requested, place neck vanessa wraps bilateral lower extremity elevation. Given recent significant difficulties with managing patient dry weight per discussion with patient and family will request cardiology involvement. Given recent significant issues with hypotension especially with dialysis and current dialysis needs will initiate on midodrine as well. #2. Acute kidney injury on ESRD on HD, secondary to uremia and GI losses: Admission BUN/Cr 124/8.04, GFR 7, prior baseline creatinine noted to be primarily 4.2-4.3 however this was in 2021 thus it is uncertain exactly what range he has been recently. Given presentation with missed dialysis and concern for volume overload will avoid aggressive hydration, GI losses potentially secondary to uremia, nephrology consulted and preferentially would be dialyzed on day of admission. Avoiding aggressive hydration given concern for overload. #3. Hyperkalemia: Admission potassium 5.9 in the setting of acute kidney injury, will continue hyperkalemic protocol with initiation of insulin, dextrose, albuterol, Kayexalate with serial repeat BMP until clinically assured improvement, maintain on telemetry. Nephrology consulted for dialysis as noted. #4. Acute hyponatremia, hypochloremia, unfortunately it appears he is volume overloaded thus could be a component of hypervolemia but also he has been stating intractable nausea and emesis but certainly has some GI loss component: Admission sodium 131, chloride 84, given overload concerns avoiding aggressive hydration, nephrology consulted for preferentially dialysis on day of presentation. #5. Acute thrombocytopenia, possibly reactive given acute presentation with questionable concurrent URI in addition to as noted above: Admission platelet 120, baseline previously normal, most recently however labs from 2021, will continue to trend CBC. #6. Possible Acute viral syndrome suspected: Complicates presentation, potentially could be symptoms primarily secondary to missing dialysis x 2 but uncertain, rapid SARS COVID/influenza/RSV negative, will obtain full respiratory viral panel, sputum Cx, procalcitonin, treat conservatively with as needed regimen for cough, congestion. #7. Paroxysmal atrial fibrillation, new onset, rate controlled: EKG in ED w/ atrial fibrillation, rate controlled in the ED and patient and deny history notes not any other records from the cardiology office also. Will maintain on telemetry, obtain magnesium level, obtain ECHO, obtain TSH level. CHADs scoring appropriate for anticoagulation start, will add Eliquis. #8. CAD: Status post CABG (S/P surgery with CARTY to LAD, SVG to OM system, and SVG to PDA in March 2017 at [facility]), if able to tolerate will continue aspirin, statin, Coreg regimen, not on VANESSA/ARB with underlying renal disease as noted. #9. Diabetes mellitus type II: Hold oral home regimen, continue home insulin regimen however pending blood sugar assessments given clear liquids at this time given nausea and emesis bouts may consider one half dose or holding of hypoglycemia concern, maintained on every 6 hours accu checks w/ ISS. #10. PAF: Patient with EKG with atrial fibrillation rate controlled, will continue Coreg, per current list is not chronically anticoagulated. #11. GERD, history of GI bleed: Will maintain on IV PPI given intractable nausea and emesis until improving. #12. Pulmonary hypertension: Complicates presentation, per records appears he is only on tadalafil and is listed as needed but clarifying to be certain. #13. Hypertension: Continue home regimen including hydralazine, doxazosin, Coreg, PRN hydralazine. Also normally on bumetanide and metolazone, given overload appearance if necessary may consider pulsed dosing with IV regimen however given his significant acute kidney injury on chronic with dialysis needs preferentially would wait until dialysis performed before readdition of these medications especially given ongoing GI losses. #14. Hyperlipidemia: Will continue patient on statin therapy. #15. Valvular heart disease: Remote echo noted from 04/25/2022 from outside facility with mildly dilated LV, moderate LV hypertrophy, LV systolic function mildly decreased with EF 45? percent, grade 2 LV diastolic dysfunction, RV moderately dilated, RV systolic function moderately decreased, mildly dilated LA and RA, moderate 2+ TVR, RVSP 49 mmHg consistent with moderate pulmonary hypertension, mild mitral stenosis due to moderate MAC, mild PI, mild AI, apical anterior lateral, mid anterolateral, mid inferior septal hypokinesis. Echocardiogram requested as noted above. #16. Former tobacco use: Encourage continued tobacco cessation. #17. Allergic rhinitis: Continue patient home loratadine regimen. #18. DVT prophylaxis: Starting on Eliquis as noted. #18 CODE status: Patient HCPOA and living will are not in place but his who is present would be his medical decision-maker if necessary he notes. Discussed CODE status at length including difference between FULL code, DNR-CCA and DNR-CC status. Following discussions about the differences in these status, requested DNR-CCA, no intubation status. Advanced Care Planning Face to Face Time: 16 minutes. Charges/Coding Visit Charges Inpatient E&M: 99479 Init Hosp L3 Procedures Hospitalists Procedures: 91470 Advncd Care Plan 30 Min
[2024-12-11] MEDS: Ondansetron 4 MG/2 ML Vial IV (17:08)
--- NOTE | 2024-12-11 17:53 | PCM.CONS.C ---
Assessment & Plan Assessment/Plan (1) Acute hyperkalemia: PLAN: Patient potassium is 5.9. This is up significant from his baseline. He has missed 2 dialysis appointments. Nephrology has been consulted for urgent dialysis. (2) End-stage renal disease on hemodialysis: PLAN: Patient has been on dialysis and has had problems with hypotension during dialysis. He is now off of all antihypertensive medical therapy. Will defer to nephrology for further evaluation and treatment of his end-stage renal disease. (3) History of ischemic cardiomyopathy: PLAN: Patient carries a history of an ischemic cardiomyopathy with an ejection fraction of 45% last evaluated on an echo in 2021. An echo will be repeated on this admission and appropriate medical therapy be recommended pending the outcome of that echocardiogram. We do have significant issues in trying to treat his him with guideline directed medical therapy given his hypotension with dialysis. Historically we have treated him on his off days and not treated him until after dialysis on the days he received dialysis. Will discuss with nephrology the possibility of adding an SGLT2 inhibitor for treatment of his heart failure. (4) Acute uremia: PLAN: Patient's BUN and creatinine are markedly elevated. He does appear to be mentating normally and alert and oriented x 3. He is able to carry on a normal conversation. Treatment and institution of dialysis to be deferred to nephrology. (5) Paroxysmal atrial fibrillation: PLAN: This is the first time I can find documented he is been in atrial fibrillation. His rate is well-controlled on no rate modulating medical therapy. He does have a remote history of a GI bleed and that his hemoglobin on admission was 13. I recommend we trial placing him on Eliquis 5 mg twice daily. This is already been instituted in the emergency department. We should stop his aspirin. PLAN: Plan 1. Obtain 2D echocardiogram. 2. Once echo is available we will discuss with the primary service and nephrology about best options for treatment. 3. Would not feel that he will be reverting into sinus rhythm until after his metabolic derangements are corrected. 4. Recommend trialing him on Eliquis 5 mg twice daily. He does have a history of remote GI bleed his hemoglobin is 13 on today's lab work. 5. Currently his rate is well-controlled on no rate modulating drugs. HPI Consult Data Date of Consult: 12/11/24 HPI Narrative Reason for Consultation: New onset atrial fibrillation. HPI Narrative: SHARON QUINONES, is a 69 M who presents with a 5 to 6-day history of a URI type symptom he denies any fevers or chills but reports that he has been sick and coughing with a nonproductive cough. He missed his last 2 dialysis sessions one of the second 1 was today. He has noted some increasing dyspnea on exertion and significant drop in his appetite. He gets nauseated with any type of attempted oral intake. The patient is diabetic and possibly has gastroparesis. He has missed 2 dialysis sessions in the past without getting sick like this. The patient's EKG now shows that he is in atrial fibrillation I cannot find an old EKG that demonstrates atrial fibs. His other EKGs have shown sinus rhythm. When he was last evaluated in our office October 2024 he was in a regular rhythm but I did not do an ECG. Currently the patient is resting comfortably but his BUN and creatinine are markedly elevated as his potassium. And he is approximately 20 pounds above his routine dry weight. The patient does note that he has had some lower extremity edema but he intermittently has this in the past as well. The dialysis team and his dialysis center have been attempting to diurese him by switching him to torsemide and metolazone. But he has not had any significant urine output by his report since that change was made last week. Historically the patient has had trouble with dialysis due to hypotension and he has had to hold his Coreg the night before. Once he does this is dialysis has been able to be completed in 3 hours. Most recently his Coreg has been discontinued appropriately. The patient has a history of coronary disease status post bypass graft surgery in 2017 receiving a CARTY to the LAD a vein graft to the OM branch of the circumflex and a vein graft to the right coronary artery. His anginal equivalent was a profound dyspnea on exertion with a hot sensation. He denies any recurrence of the symptoms denies any chest pain. He does have a history of an ischemic cardiomyopathy EF is known to be 45% on an echocardiogram in 2021 it has not been repeated. The patient has been on hemodialysis long-term he also has a history of mild tricuspid digitation mild mitral stenosis and aortic insufficiency. His right ventricular systolic pressure was 49 on that echo in 2021. Is to be admitted to the PCU nephrology is been consulted for urgent dialysis. [facility] Medical History C. difficile diarrhea Anemia History of GI bleed Pure hypercholesterolemia Ischemic cardiomyopathy Essential hypertension Renal insufficiency Ankylosing spondylitis CAD (coronary artery disease) Overweight (BMI 25.0-29.9) Leg edema Leg swelling Acute systolic heart failure Bradycardia Biliary pleural effusion HTN (hypertension) Ventricular tachyarrhythmia Atherosclerosis of [place] coronary artery of [place] heart without angina pectoris Pulmonary HTN Cardiomyopathy Valvular heart disease NSTEMI (non-ST elevated myocardial infarction) CHF (congestive heart failure) Abscess of right foot Diabetes mellitus with neuropathy Gout DM2 (diabetes mellitus, type 2) Home Medications ?Medication ?Instructions ?Recorded ?Last Taken ?Type latanoprost 0.005 % eye drops 1 drp EACH EYE QHS 06/03/18 12/10/24 History melatonin 5 mg tablet 10 mg PO HS PRN Sleep 08/02/20 12/10/24 History loratadine 10 mg capsule 10 mg PO DAILY PRN allergy symptoms 10/24/21 12/10/24 History sevelamer carbonate 800 mg tablet 800 mg PO TID 05/30/22 12/10/24 History handicap placcard #1 ea 07/07/22 Unknown Rx aspirin 81 mg tablet,delayed 81 mg PO DAILY #90 tabs 04/23/24 12/10/24 Rx release (Adult Aspirin Regimen) bumetanide 2 mg tablet 2 mg PO DAILY FLUID #90 tabs 07/09/24 12/10/24 Rx hydroxyzine HCl 25 mg tablet 25 mg PO Q6 PRN itch 10/28/24 12/10/24 History insulin glargine 100 unit/mL (3 10 unit subcut QPM 10/28/24 Unknown History mL) subcutaneous pen (Lantus Solostar U-100 Insulin) tadalafil 20 mg tablet 20 mg PO DAILY PRN sexual activity 10/28/24 Unknown History atorvastatin 40 mg tablet 40 mg PO DAILY 12/11/24 12/10/24 History benzonatate 100 mg capsule 100 mg PO TID PRN cough 12/11/24 12/10/24 History metolazone 5 mg tablet 5 mg PO DAILY 12/11/24 12/10/24 History pantoprazole 40 mg tablet,delayed 40 mg PO BID 12/11/24 12/10/24 History release trazodone 50 mg tablet 50 mg PO QHS 12/11/24 12/10/24 History vitamin B complex-vitamin C-folic 1 tab PO DAILY 12/11/24 12/10/24 History acid 0.8 mg tablet (Dialyvite 800) Allergy/AdvReac Type Severity Reaction Status Date / Time pregabalin (From Lyrica) Allergy Angioedema Verified 12/11/24 14:17 Family History Father CAD (coronary artery disease) Mother CAD (coronary artery disease) Surgical History History of cataract extraction hx femur surgery Hx of arthroscopy History of open reduction and internal fixation (ORIF) procedure Hx of CABG (~04/12/17) Social History household members: spouse Smoking Status: Former smoker alcohol intake: never substance use type: does not use caffeine: No what type of physical activity do you participate in: none seatbelt use: always do you feel safe at home: Yes ROS Constitutional Constitutional: Reports as per HPI Eyes Eyes: Reports systems reviewed and no addt'l complaints, except as documented ENT HEENT: Reports systems reviewed and no addt'l complaints, except as documented Cardiovascular Cardiovascular: Reports as per HPI Respiratory/Chest Respiratory/Chest: Reports as per HPI Gastrointestinal Gastrointestinal: Reports as per HPI Genitourinary Genitourinary: Reports as per HPI Musculoskeletal Musculoskeletal: Reports as per HPI Integumentary Integumentary: Reports systems reviewed and no addt'l complaints, except as documented Neurologic Neurologic: Reports systems reviewed and no addt'l complaints, except as documented Psychiatric Psychiatric: Reports systems reviewed and no addt'l complaints, except as documented Endocrine Endocrinology: Reports as per HPI Hematologic/Lymphatic Hematologic/Lymphatic: Reports as per HPI Allergic/Immunologic Allergic/Immunologic: Reports systems reviewed and no addt'l complaints, except as documented Physical Exam Const alert and oriented x3 HEENT normocephalic Eyes EOMs intact bilaterally Neck supple Carotids: Negative for bruit Chest Chest: midline sternotomy incision Resp normal respiratory effort Auscultation: crackles bilateral lower and 1/2 way up and diminished lung sounds bilateral lower Cardio Cardio Narrative: Functioning fistula in his left upper arm. Rate: regular rate Rhythm: abnormal rhythm irregularly irregular Heart Sounds: S1 normal, S2 normal and murmur systolic II/ blowing mid right sternal border; Negative for click or gallop GI soft to palpation Extremity General Extremity: edema bilateral lower extremity Details: mild Neuro Neuro Narrative: Alert and oriented x 3 Risk Stratification Risk Stratification Applicable: No Charges/Coding Visit Charges Inpatient E&M: 43399 Init Hosp L3 Objective Data Vital Signs: Vital Signs Temp Pulse Resp BP Pulse Ox O2 Del Method 97.6 F L 76 20 H 97/71 93 Room Air 12/11/24 14:17 12/11/24 16:16 12/11/24 16:16 12/11/24 16:16 12/11/24 16:16 12/11/24 16:16 Oxygen Delivery Method Room Air Lab / Micro Data Attestation: I reviewed the patient's lab results. 12/11/24 14:35 12/11/24 14:35 Labs: Laboratory Results - last 24 hr 12/11/24 14:35: WBC 9.1, RBC 4.01 L, Hgb 13.0, Hct 37.2 L, MCV 92.8, MCH 32.4 H, MCHC 34.9, RDW Std Deviation 56.2 H, RDW Coeff of Yuri 17.0 H, Plt Count 120 L, MPV 10.1, Immature Gran % (Auto) 0.400, Neut % (Auto) 77.3 H, Lymph % (Auto) 7.7 L, [place] % (Auto) 13.0 H, Eos % (Auto) 0.9, Baso % (Auto) 0.7, Absolute Neuts (auto) 7.0, Absolute Lymphs (auto) 0.70 L, Nucleated RBC % 0, Sodium 131 L, Potassium 5.9 H, Chloride 84 L, Carbon Dioxide 21.0, Anion Gap 26 H, BUN 124 H*, Creatinine 8.04 H*, Est GFR (MDRD) Non-Af 7 L, BUN/Creatinine Ratio 15.4, Glucose 88, Calcium 10.0 Micro: Microbiology 12/11/24 14:42 Mucosa - Nose SARS-CoV-2, Influenza & RSV (PCR) - Final Rhythm Strip Rhythm Strip: A-fib Rate: 90 Cardiology Labs/Tests 12/11/24 14:35: WBC 9.1, RBC 4.01 L, Hgb 13.0, Hct 37.2 L, MCV 92.8, MCH 32.4 H, MCHC 34.9, Plt Count 120 L, MPV 10.1, Immature Gran % (Auto) 0.400, Neut % (Auto) 77.3 H, Lymph % (Auto) 7.7 L, [place] % (Auto) 13.0 H, Eos % (Auto) 0.9, Baso % (Auto) 0.7, Absolute Neuts (auto) 7.0, Nucleated RBC % 0, Sodium 131 L, Potassium 5.9 H, Chloride 84 L, Carbon Dioxide 21.0, Anion Gap 26 H, BUN 124 H*, Creatinine 8.04 H*, Est GFR (MDRD) Non-Af 7 L, BUN/Creatinine Ratio 15.4, Glucose 88, Calcium 10.0 Rhythm: EKG: ECHO: Stress Test: Cardiac Cath: PCI: CT Surgery: Holter monitor: EPS: PPM: CXR: Chest CT Scan: Radiography Diagnostic Testing: Radiology Impression Chest X-Ray 12/11/24 15:10 IMPRESSION: CHF exacerbation. Reading Location: FORMERLY [facility], [facility]
[2024-12-11 17:58] LABS: Magnesium 2.6 mg/dL (1.5-2.2)
[2024-12-11 18:00] VITALS: BP 134/78; PULSE 77; RESP 18; O2SAT 97
[2024-12-11 18:13] LABS: Phosphorus 12.7 mg/dL (2.7-4.5)
--- NOTE | 2024-12-11 19:30 | ECHOD_ITS ---
Reason For Study Reason For Study: CHF Procedure This was a 2D Doppler, Color Flow transthoracic echocardiogram. Exam performed portable in patient room. Left Ventricle Normal LV size. Moderate concentric left ventricular hypertrophy. The left ventricular ejection fraction is 25 %. Moderately severe segmental systolic dysfunction (see wall motion). Mid- Inferior: Akinetic. Basal inferoseptal: Akinetic. Mid-inferoseptal : Akinetic. Posterior-Basal: Akinetic. The rest of the wall segments are hypokinetic. Right Ventricle Mildly dilated right ventricle. Moderate global right ventricular systolic dysfunction. Atria The left atrium is mildly enlarged. The right atrium is moderately enlarged. Mitral Valve Bileaflet diffuse mitral valve thickening. There is moderate mitral annular calcification. The mitral papillary muscle appears thickened and/or calcified. Tricuspid Valve Normal tricuspid valve. Mild to moderate (1-2+) tricuspid valve insufficiency. Pulmonary artery systolic pressure is 60 mmHg. Aortic Valve Trisinus/trileaflet aortic valve. Moderate focal aortic valve calcification. Pulmonic Valve Normal pulmonic valve. Mild (1+) pulmonic valve insufficiency. Great Vessels Normal aortic root. The pulmonary artery is normal size. and does not collapse. Pericardium/Pleural No pericardial effusion. MMode/2D Measurements & Calculations LVIDd: 5.5 cm IVSd: 1.7 cm LVOT diam: 2.1 cm LVIDs: 5.1 cm LVPWd: 1.7 cm LVOT area: 3.4 cm2 RVDd: 5.3 cm FS: 6.4 % Ao root diam: 3.4 cm LAV(MOD-sp4): 80.0 ml LVAd ap4: 38.6 cm2 LVLd ap4: 8.6 cm EDV(MOD-sp4): 143.8 ml EDV(sp4-el): 146.5 ml LVAs ap4: 33.0 cm2 LVLs ap4: 8.6 cm ESV(MOD-sp4): 106.2 ml ESV(sp4-el): 107.4 ml EF(MOD-sp4): 26.2 % EF(sp4-el): 26.7 % SV(MOD-sp4): 37.6 ml SV(sp4-el): 39.1 ml LA A4 area: 24.9 cm2 SI(MOD-sp4): 19.1 ml/m2 LA dimension(2D): 4.7 cm RA A4 area: 29.6 cm2 Doppler Measurements & Calculations MV E max usha: 122.4 cm/sec Ao V2 max: 151.8 cm/sec LV V1 max: 121.5 cm/sec Ao max P.3 mmHg LV V1 max P.9 mmHg Ao V2 mean: 99.7 cm/sec LV V1 mean P.9 mmHg Ao mean P.7 mmHg LV V1 mean: 77.3 cm/sec Ao V2 VTI: 29.3 cm LV V1 VTI: 23.8 cm AV (velocity ratio): 0.81 MARIN(I,D): 2.7 cm2 MARIN(V,D): 2.7 cm2 SV(LVOT): 79.8 ml PA V2 max: 62.3 cm/sec TR max usha: 375.2 cm/sec PA V2 mean: 46.6 cm/sec TR max P.3 mmHg ECHO/Echo Complete Interpretation Summary The left ventricular ejection fraction is 25 %. Normal LV size. Moderately severe segmental systolic dysfunction (see wall motion). Pulmonary artery systolic pressure is 60 mmHg. Moderate concentric left ventricular hypertrophy. Ordering Physician: LETTY JI Referring Physician: RIGOBERTO LOVE Performed By: Theresa Maria RCS
[2024-12-11 20:10] VITALS: BP 106/78; PULSE 98; RESP 18; TEMP 36.4; O2SAT 95
[2024-12-11 20:13] VITALS: BMI 24.7
[2024-12-11 20:22] VITALS: BMI 24.7
[2024-12-11] MEDS: Calcium Gluconate 1 GM/10 ML Vial 0.5 GM IVP (20:59)
[2024-12-11] MEDS: Insulin Lispro 10 UNIT in Syringe 0 ML 6 UNIT IV (21:03)
[2024-12-11] MEDS: Dextrose 10%-Water 250 ML 999 ML IV (21:04)
[2024-12-11] MEDS: Sodium Polystyrene Sulfonate 15 GM/60 ML UDC PO (21:06)
[2024-12-11] MEDS: Furosemide 100 MG/10 ML Vial 60 MG IV (21:09)
[2024-12-11] MEDS: APIXABAN 5 MG TABLET PO (21:12)
[2024-12-11] MEDS: Midodrine HCl 5 MG Tablet 10 MG PO (21:12)
[2024-12-11] MEDS: traZODone 50 MG Tablet PO (21:12)
[2024-12-11] MEDS: 0.9% Saline Lock 10 ML Syringe IV (21:13)
[2024-12-11] MEDS: Latanoprost 0.005% 1 Bottle 1 DRP EACH EYE (21:14)
[2024-12-11] MEDS: Pantoprazole Sodium 40 MG in 0.9% Normal Saline (100mL MB+) 100 ML 330 MG IV (21:31)
[2024-12-11] MEDS: Insulin Glargine-YFGN 100 UNIT/ML Pen 10 UNIT SC (21:34)
[2024-12-11] MEDS: Albuterol *CONC* 2.5mg/0.5mL VIAL.NEB. 10 MG INHALATION (21:38)
[2024-12-11 21:39] VITALS: PULSE 85; RESP 20
[2024-12-11 23:11] LABS: Anion Gap 29 (5-15); BUN 122 mg/dL (4-19); BUN/Creat Ratio 14.9 RATIO (10-20); Calcium,Total 9.8 mg/dL (7.6-11.0); Carbon Dioxide 16.7 mmol/L (21.0-32.0); Chloride 85 mmol/L (98-108); Creatinine, Serum 8.21 mg/dL (0.70-1.20); EST Glomerular Filtration Rate 7 (>60); Estimated Creatinine Clearance 9.02 ml/min (50-250); Glucose 148 mg/dL (70-99); Potassium 5.9 mmol/L (3.3-5.1); Sodium Level 130 mmol/L (133-145)
[2024-12-11 23:34] LABS: Procalcitonin 1.39 ng/mL (<=0.10)
[2024-12-12] VITALS (13 sets, daily range): BP systolic 104–266; BP diastolic 61–85; PULSE 69–97; RESP 16–18; TEMP 36.5–36.9; O2SAT 92–93; BMI 25.1; BMI 25.9
[2024-12-12 00:51] LABS: Bedside Glucose 89 mg/dL (74-106)
[2024-12-12 00:51] LABS: Bedside Glucose 133 mg/dL (74-106)
[2024-12-12 01:14] LABS: Anion Gap 28 (5-15); BUN 131 mg/dL (4-19); BUN/Creat Ratio 15.6 RATIO (10-20); Calcium,Total 9.6 mg/dL (7.6-11.0); Carbon Dioxide 15.9 mmol/L (21.0-32.0); Chloride 86 mmol/L (98-108); EST Glomerular Filtration Rate 6 (>60); Estimated Creatinine Clearance 8.81 ml/min (50-250); Glucose 93 mg/dL (70-99); Potassium 5.4 mmol/L (3.3-5.1); Sodium Level 129 mmol/L (133-145)
[2024-12-12 01:21] LABS: Bedside Glucose 75 mg/dL (74-106)
[2024-12-12 04:48] LABS: Absolute Lymphocyte Count 0.69 X10^3/uL (0.83-4.51); Absolute Neutrophil Count 6.2 X10^3/uL (2.0-7.7); Basophil# 0.03 X10^3/uL; Basophil% 0.4 % (0-1); Eosinophil# 0.07 X10^3/uL; Eosinophils% 0.9 % (0-5); Hematocrit 33.9 % (40-54); Hemoglobin 11.8 g/dL (13.0-16.5); Lymphocyte # 0.69 X10^3/ul (0.83-4.51); Lymphocyte % 8.4 % (19-41); Mean Corp Hgb Conc 34.8 g/dL (32-36); Mean Corpuscular Volume 91.9 fL (80-94); Mean Platelet Vol. 10.3 fl (6.2-12.0); Monocyte% 14.7 % (0-10); NRBC Flagged by Analyzer 0 % (0-5); Neutrophil # 6.15 X10^3/uL (2.7-7.7); Neutrophil % 75.1 % (47-70); Platelet Count 128 K/mm3 (150-450); RBC Distribution Width CV 16.8 % (11.6-14.6); RBC Distribution Width SD 55.1 fl (35.1-43.9); Red Blood Count 3.69 M/mm3 (4.6-6.2); White Blood Count 8.2 K/mm3 (4.4-11.0)
[2024-12-12] MEDS: Dextrose 10%-Water 250 ML 999 ML IV (06:59)
[2024-12-12 07:03] LABS: Cholesterol 149 mg/dL (<=200); High Density Lipoprotein 36 mg/dL; Low Density Lipoprotein Calc. 97 mg/dL; Triglycerides 78 mg/dL; Very Low Density Lipoprotein 16 mg/dL (5-40); cholesterol:hdl ratio screen 4.12
[2024-12-12 07:21] LABS: ALB/GLOB Ratio 1.2 RATIO (0.9-2.4); AST(SGOT) 32 U/L (<=37); Alanine Aminotransfer ALT/SGPT 18 U/L (<=46); Albumin, Serum 3.6 g/dL (3.4-4.8); Alkaline Phosphatase 171 U/L (40-129); Anion Gap 27 (5-15); BUN 124 mg/dL (4-19); BUN/Creat Ratio 14.9 RATIO (10-20); Calcium,Total 9.3 mg/dL (7.6-11.0); Carbon Dioxide 17.3 mmol/L (21.0-32.0); Chloride 86 mmol/L (98-108); Creatinine, Serum 8.32 mg/dL (0.70-1.20); EST Glomerular Filtration Rate 6 (>60); Globulin 2.9 g/dL (2.2-4.2); Glucose 68 mg/dL (70-99); Potassium 5.3 mmol/L (3.3-5.1); Protein, Total 6.5 g/dL (5.9-8.4); Sodium Level 130 mmol/L (133-145); Total Bilirubin 0.93 mg/dL (0.00-1.30)
[2024-12-12 07:52] LABS: Bedside Glucose 114 mg/dL (74-106)
--- NOTE | 2024-12-12 07:59 | PCM.PN.HOSP ---
Reason for Visit Reason for Visit: Diagnoses Hypo-osmolality and hyponatremia (12/11/24) Hyperkalemia (12/11/24) Fluid overload, unspecified (12/11/24) Paroxysmal atrial fibrillation (12/11/24) End stage renal disease (12/11/24) Unspecified kidney failure (12/11/24) Personal history of other diseases of the circulatory system (12/11/24) Dependence on renal dialysis (12/11/24) Objective Data Objective Data Vital Signs: Vital Signs Temp Pulse Resp BP Pulse Ox O2 Del Method 97.7 F L 86 16 109/64 92 Room Air 12/12/24 06:35 12/12/24 06:35 12/12/24 06:35 12/12/24 06:35 12/12/24 06:35 12/12/24 06:35 Oxygen Delivery Method Room Air Weight: 175 lb 4.28 oz Body Mass Index (BMI) 25.1 Intake & Output: Intake and Output for Last 24 Hours 12/10/24 12/11/24 12/12/24 23:59 23:59 23:59 Intake Total 600 / 600 365 / 365 Output Total 0 / 0 0 / 0 Balance 600 / 600 365 / 365 Lab / Micro Data 12/12/24 04:15 12/12/24 04:15 Labs: Laboratory Results - last 24 hr 12/11/24 14:35: WBC 9.1, RBC 4.01 L, Hgb 13.0, Hct 37.2 L, MCV 92.8, MCH 32.4 H, MCHC 34.9, RDW Std Deviation 56.2 H, RDW Coeff of Yuri 17.0 H, Plt Count 120 L, MPV 10.1, Immature Gran % (Auto) 0.400, Neut % (Auto) 77.3 H, Lymph % (Auto) 7.7 L, [place] % (Auto) 13.0 H, Eos % (Auto) 0.9, Baso % (Auto) 0.7, Absolute Neuts (auto) 7.0, Absolute Lymphs (auto) 0.70 L, Nucleated RBC % 0, Sodium 131 L, Potassium 5.9 H, Chloride 84 L, Carbon Dioxide 21.0, Anion Gap 26 H, BUN 124 H*, Creatinine 8.04 H*, Est GFR (MDRD) Non-Af 7 L, BUN/Creatinine Ratio 15.4, Glucose 88, Calcium 10.0, Phosphorus 12.7 H*, Magnesium 2.6 H 12/11/24 20:58: POC Glucose 89 12/11/24 21:34: POC Glucose 133 H 12/11/24 21:35: Sodium 130 L, Potassium 5.9 H, Chloride 85 L, Carbon Dioxide 16.7 L, Anion Gap 29 H, BUN 122 H*, Creatinine 8.21 H*, Estim Creat Clear Calc 9.02 L*, Est GFR (MDRD) Non-Af 7 L, BUN/Creatinine Ratio 14.9, Glucose 148 H, Calcium 9.8, Procalcitonin 1.39 H 12/11/24 23:45: Sodium 129 L, Potassium 5.4 H, Chloride 86 L, Carbon Dioxide 15.9 L, Anion Gap 28 H, BUN 131 H*, Creatinine 8.40 H*, Estim Creat Clear Calc 8.81 L*, Est GFR (MDRD) Non-Af 6 L, BUN/Creatinine Ratio 15.6, Glucose 93, Calcium 9.6 12/12/24 01:00: POC Glucose 75 12/12/24 04:15: WBC 8.2, RBC 3.69 L, Hgb 11.8 L, Hct 33.9 L, MCV 91.9, MCH 32.0, MCHC 34.8, RDW Std Deviation 55.1 H, RDW Coeff of Yuri 16.8 H, Plt Count 128 L, MPV 10.3, Immature Gran % (Auto) 0.500, Neut % (Auto) 75.1 H, Lymph % (Auto) 8.4 L, [place] % (Auto) 14.7 H, Eos % (Auto) 0.9, Baso % (Auto) 0.4, Absolute Neuts (auto) 6.2, Absolute Lymphs (auto) 0.69 L, Nucleated RBC % 0, Sodium 130 L, Potassium 5.3 H, Chloride 86 L, Carbon Dioxide 17.3 L, Anion Gap 27 H, BUN 124 H*, Creatinine 8.32 H*, Estim Creat Clear Calc 8.90 L*, Est GFR (MDRD) Non-Af 6 L, BUN/Creatinine Ratio 14.9, Glucose 68 L, Calcium 9.3, Total Bilirubin 0.93, AST 32, ALT 18, Alkaline Phosphatase 171 H, Total Protein 6.5, Albumin 3.6, Globulin 2.9, Albumin/Globulin Ratio 1.2, Triglycerides 78, Cholesterol 149, LDL Cholesterol, Calc 97, VLDL Cholesterol 16, HDL Cholesterol 36 L, Cholesterol/HDL Ratio 4.12, TSH 3.050 12/12/24 07:33: POC Glucose 114 H Micro: Microbiology 12/11/24 21:30 Mucosa - Nose Respiratory Panel (PCR) - Final 12/11/24 14:42 Mucosa - Nose SARS-CoV-2, Influenza & RSV (PCR) - Final Radiography Diagnostic Testing: Radiology Impression Chest X-Ray 12/11/24 15:10 IMPRESSION: CHF exacerbation. Reading Location: [facility] Rhythm Strip Rhythm Strip: A-fib Rate: 90 Physical Exam Narrative Seen and examined Patient was admitted with symptoms of chest congestion but no fever, cough or sore throat and generalized weakness. Patient missed 2 days of dialysis last Sunday and . Denies history of A-fib. Had CABG. He still urinates about half cup couple times a day Physical exam General: Alert, Oriented x3, Cooperative HEENT: Atraumatic, PERRLA, EOMI, Normocephalic Oral: No Gingival or Mucosal Lesions/ Ulcerations Neck: Supple, No JVD, Negative Carotid Bruits Chest wall/Lungs: Air entry diminished in bilateral lung bases. No crepitation/rhonchi Cardiovascular: Irregular rate and rhythm, Normal S1, Normal S2, systolic murmur Abdomen: Bowel Sounds Present, Soft, Non Tender, Non-Distended : No dysuria. No renal angle tenderness. No suprapubic tenderness. On hemodialysis Extremities: No edema, Capillary Refill Less than 3 Seconds Skin: No rashes, No breakdown Musculoskeletal: Bilateral TKR. Bruise on the right knee. No Tenderness to Palpation of Joints or Extremities Neurological: Cranial nerves II-XII grossly intact, DTR 2+/4. No acute focal neurological deficit. Psych/Mental Status: Flat affect Assessment & Plan Assessment/Plan (1) Acute hyperkalemia: (2) Hyponatremia: (3) Fluid overload: (4) Acute uremia: PLAN: Plan The patient is a 69 y/o M is being admitted for missing 2 sessions of hemodialysis and URI symptoms, nausea, vomiting, decreased oral intake, urine output and generalized weakness for 2 days prior to ER visit. #1. Acute Decompensated HFrEF/ischemic cardiomyopathy suspected secondary to primarily missing dialysis x 2 sessions, complicated by onset of intractable nausea and emesis possibly because of uremia: Will admit to PCU, maintain on cardiac telemetry, monitor I/Os, maintain on intake restriction, ECHO requested as none noted since 2021, IV laxis until HD available, nephrology consulted for dialysis preferentially today, continue medical therapy, magnesium level requested, place neck vanessa wraps bilateral lower extremity elevation. Given recent significant difficulties with managing patient dry weight per discussion with patient and family will request cardiology involvement. Given recent significant issues with hypotension especially with dialysis and current dialysis needs will initiate on midodrine as well. #2. ESRD on HD Admission BUN/Cr 124/8.04, GFR 7, prior baseline creatinine noted to be primarily 4.2-4.3 in 2021. There cannot be GARRET on the top of ESRD disease as the definition itself means end-stage renal disease #3. Hyperkalemia: Creatinine got better 5.3 after dialysis #4. Acute hyponatremia, hypochloremia: Admission sodium 131, chloride 84. In the morning it was 130 sodium #5. Acute thrombocytopenia, unclear etiology. Platelet count was 280/295 in May 2022. Has been more than 2 years. Currently 1 28,000. Triple PCR for SARS-CoV-2, flu and RSV are negative. Respiratory panel negative #7. Atrial fibrillation, new onset, rate controlled probably transient from metabolic derangement: EKG in ED w/ atrial fibrillation, rate controlled in the ED and patient and denied history of A-fib. desk monitor shows A-fib 2. Patient was seen by thread weaver. #8. CAD: Status post CABG (S/P surgery with CARTY to LAD, SVG to OM system, and SVG to PDA in March 2017 at [facility]), if able to tolerate will continue aspirin, statin, Coreg regimen, not on VANESSA/ARB with underlying renal disease as noted. #9. Diabetes mellitus type II: Hold oral home regimen, continue home insulin regimen however pending blood sugar assessments given clear liquids at this time given nausea and emesis bouts may consider one half dose or holding of hypoglycemia concern, maintained on every 6 hours accu checks w/ ISS. #10. PAF: Patient with EKG with atrial fibrillation rate controlled, will continue Coreg, per current list is not chronically anticoagulated. #11. GERD, history of GI bleed: Will maintain on IV PPI given intractable nausea and emesis until improving. #12. Pulmonary hypertension: Complicates presentation, per records appears he is only on tadalafil and is listed as needed but clarifying to be certain. #13. Hypertension: Continue home regimen including hydralazine, doxazosin, Coreg, PRN hydralazine. #14. Hyperlipidemia: Will continue patient on statin therapy. #15. Valvular heart disease: Remote echo noted from 04/25/2022 from outside facility with mildly dilated LV, moderate LV hypertrophy, LV systolic function mildly decreased with EF 45? percent, grade 2 LV diastolic dysfunction, RV moderately dilated, RV systolic function moderately decreased, mildly dilated LA and RA, moderate 2+ TVR, RVSP 49 mmHg consistent with moderate pulmonary hypertension, mild mitral stenosis, mild PI, mild AI, apical anterior lateral, mid anterolateral, mid inferior septal hypokinesis. Echocardiogram requested as noted above. #16. Former tobacco use: Encourage continued tobacco cessation. #17. Allergic rhinitis: Continue patient home loratadine regimen. #18. DVT prophylaxis: Starting on Eliquis as noted. #18 CODE status: Patient HCPOA and living will are not in place but his who is present would be his medical decision-maker if necessary he notes. Discussed CODE status at length including difference between FULL code, DNR-CCA and DNR-CC status. Following discussions about the differences in these status, requested DNR-CCA, no intubation status. Charges/Coding Visit Charges Inpatient E&M: 04403 Subs Hosp L2
[2024-12-12] MEDS: Midodrine HCl 5 MG Tablet 10 MG PO ×3 (08:47→17:46)
--- NOTE | 2024-12-12 08:59 | PCM.PN.CARD ---
Subjective Subjective Patient is resting comfortably and become position in bed. He is being prepped for his dialysis. Patient's had no urine output. His did report to me yesterday he has had very poor urine output for the last several weeks. His weight has also been increasing. The patient denies any shortness of breath this morning. And he denies any lower extremity edema. Objective Data Vital Signs: Vital Signs Temp Pulse Resp BP Pulse Ox O2 Del Method 97.7 F L 86 16 109/64 92 Room Air 12/12/24 06:35 12/12/24 06:35 12/12/24 06:35 12/12/24 06:35 12/12/24 06:35 12/12/24 08:18 Oxygen Delivery Method Room Air Weight: 175 lb 4.28 oz Body Mass Index (BMI) 25.1 Intake & Output: Intake and Output for Last 24 Hours 12/10/24 12/11/24 12/12/24 23:59 23:59 23:59 Intake Total 600 / 600 365 / 365 Output Total 0 / 0 0 / 0 Balance 600 / 600 365 / 365 Lab / Micro Data Attestation: I reviewed the patient's lab results. 12/12/24 04:15 12/12/24 04:15 Labs: Laboratory Results - last 24 hr 12/11/24 14:35: WBC 9.1, RBC 4.01 L, Hgb 13.0, Hct 37.2 L, MCV 92.8, MCH 32.4 H, MCHC 34.9, RDW Std Deviation 56.2 H, RDW Coeff of Yuri 17.0 H, Plt Count 120 L, MPV 10.1, Immature Gran % (Auto) 0.400, Neut % (Auto) 77.3 H, Lymph % (Auto) 7.7 L, Merrick % (Auto) 13.0 H, Eos % (Auto) 0.9, Baso % (Auto) 0.7, Absolute Neuts (auto) 7.0, Absolute Lymphs (auto) 0.70 L, Nucleated RBC % 0, Sodium 131 L, Potassium 5.9 H, Chloride 84 L, Carbon Dioxide 21.0, Anion Gap 26 H, BUN 124 H*, Creatinine 8.04 H*, Est GFR (MDRD) Non-Af 7 L, BUN/Creatinine Ratio 15.4, Glucose 88, Calcium 10.0, Phosphorus 12.7 H*, Magnesium 2.6 H 12/11/24 20:58: POC Glucose 89 12/11/24 21:34: POC Glucose 133 H 12/11/24 21:35: Sodium 130 L, Potassium 5.9 H, Chloride 85 L, Carbon Dioxide 16.7 L, Anion Gap 29 H, BUN 122 H*, Creatinine 8.21 H*, Estim Creat Clear Calc 9.02 L*, Est GFR (MDRD) Non-Af 7 L, BUN/Creatinine Ratio 14.9, Glucose 148 H, Calcium 9.8, Procalcitonin 1.39 H 12/11/24 23:45: Sodium 129 L, Potassium 5.4 H, Chloride 86 L, Carbon Dioxide 15.9 L, Anion Gap 28 H, BUN 131 H*, Creatinine 8.40 H*, Estim Creat Clear Calc 8.81 L*, Est GFR (MDRD) Non-Af 6 L, BUN/Creatinine Ratio 15.6, Glucose 93, Calcium 9.6 12/12/24 01:00: POC Glucose 75 12/12/24 04:15: WBC 8.2, RBC 3.69 L, Hgb 11.8 L, Hct 33.9 L, MCV 91.9, MCH 32.0, MCHC 34.8, RDW Std Deviation 55.1 H, RDW Coeff of Yuri 16.8 H, Plt Count 128 L, MPV 10.3, Immature Gran % (Auto) 0.500, Neut % (Auto) 75.1 H, Lymph % (Auto) 8.4 L, Merrick % (Auto) 14.7 H, Eos % (Auto) 0.9, Baso % (Auto) 0.4, Absolute Neuts (auto) 6.2, Absolute Lymphs (auto) 0.69 L, Nucleated RBC % 0, Sodium 130 L, Potassium 5.3 H, Chloride 86 L, Carbon Dioxide 17.3 L, Anion Gap 27 H, BUN 124 H*, Creatinine 8.32 H*, Estim Creat Clear Calc 8.90 L*, Est GFR (MDRD) Non-Af 6 L, BUN/Creatinine Ratio 14.9, Glucose 68 L, Calcium 9.3, Total Bilirubin 0.93, AST 32, ALT 18, Alkaline Phosphatase 171 H, Total Protein 6.5, Albumin 3.6, Globulin 2.9, Albumin/Globulin Ratio 1.2, Triglycerides 78, Cholesterol 149, LDL Cholesterol, Calc 97, VLDL Cholesterol 16, HDL Cholesterol 36 L, Cholesterol/HDL Ratio 4.12, TSH 3.050 12/12/24 07:33: POC Glucose 114 H Micro: Microbiology 12/11/24 21:30 Mucosa - Nose Respiratory Panel (PCR) - Final 12/11/24 14:42 Mucosa - Nose SARS-CoV-2, Influenza & RSV (PCR) - Final Rhythm Strip Rhythm Strip: A-fib Rate: 77 Ectopy: PVC(s) Cardiology Labs/Tests 12/11/24 14:35: WBC 9.1, RBC 4.01 L, Hgb 13.0, Hct 37.2 L, MCV 92.8, MCH 32.4 H, MCHC 34.9, Plt Count 120 L, MPV 10.1, Immature Gran % (Auto) 0.400, Neut % (Auto) 77.3 H, Lymph % (Auto) 7.7 L, Merrick % (Auto) 13.0 H, Eos % (Auto) 0.9, Baso % (Auto) 0.7, Absolute Neuts (auto) 7.0, Nucleated RBC % 0, Sodium 131 L, Potassium 5.9 H, Chloride 84 L, Carbon Dioxide 21.0, Anion Gap 26 H, BUN 124 H*, Creatinine 8.04 H*, Est GFR (MDRD) Non-Af 7 L, BUN/Creatinine Ratio 15.4, Glucose 88, Calcium 10.0, Phosphorus 12.7 H*, Magnesium 2.6 H 12/11/24 21:35: Sodium 130 L, Potassium 5.9 H, Chloride 85 L, Carbon Dioxide 16.7 L, Anion Gap 29 H, BUN 122 H*, Creatinine 8.21 H*, Est GFR (MDRD) Non-Af 7 L, BUN/Creatinine Ratio 14.9, Glucose 148 H, Calcium 9.8 12/11/24 23:45: Sodium 129 L, Potassium 5.4 H, Chloride 86 L, Carbon Dioxide 15.9 L, Anion Gap 28 H, BUN 131 H*, Creatinine 8.40 H*, Est GFR (MDRD) Non-Af 6 L, BUN/Creatinine Ratio 15.6, Glucose 93, Calcium 9.6 12/12/24 04:15: WBC 8.2, RBC 3.69 L, Hgb 11.8 L, Hct 33.9 L, MCV 91.9, MCH 32.0, MCHC 34.8, Plt Count 128 L, MPV 10.3, Immature Gran % (Auto) 0.500, Neut % (Auto) 75.1 H, Lymph % (Auto) 8.4 L, Merrick % (Auto) 14.7 H, Eos % (Auto) 0.9, Baso % (Auto) 0.4, Absolute Neuts (auto) 6.2, Nucleated RBC % 0, Sodium 130 L, Potassium 5.3 H, Chloride 86 L, Carbon Dioxide 17.3 L, Anion Gap 27 H, BUN 124 H*, Creatinine 8.32 H*, Est GFR (MDRD) Non-Af 6 L, BUN/Creatinine Ratio 14.9, Glucose 68 L, Calcium 9.3, Total Bilirubin 0.93, Triglycerides 78, Cholesterol 149, VLDL Cholesterol 16, HDL Cholesterol 36 L, Cholesterol/HDL Ratio 4.12 Rhythm: EKG: ECHO: Stress Test: Cardiac Cath: PCI: CT Surgery: Holter monitor: EPS: PPM: CXR: Chest CT Scan: Radiography Diagnostic Testing: Radiology Impression Chest X-Ray 12/11/24 15:10 IMPRESSION: CHF exacerbation. Reading Location: [facility] Physical Exam Const alert and oriented x3 HEENT normocephalic Eyes EOMs intact bilaterally Chest Chest: midline sternotomy incision Resp normal respiratory effort Auscultation: diminished lung sounds bilateral (Posteriorly) Cardio Rate: regular rate Rhythm: abnormal rhythm irregularly irregular Heart Sounds: S1 normal, S2 normal and murmur systolic II/ soft mid right sternal border; Negative for click or gallop Extremity no pedal edema Neuro Neuro Narrative: Alert and oriented x 3. Psych mental status grossly normal Assessment & Plan Assessment/Plan (1) Paroxysmal atrial fibrillation: PLAN: Patient's rate is well-controlled on no rate modulating drugs. He does have hyperkalemia and uremia. This is probably the etiology of his onset of atrial fibrillation which is new for him. Blood pressure is tolerating it at this time. He is on Eliquis 5 mg twice daily which is the appropriate dose given his weight and age as well as his end-stage renal disease. The duration of atrial fibrillation is unknown he apparently started feeling bad 5 days prior to admission. Therefore attempted direct-current cardioversion would not be indicated unless he became hemodynamically unstable at this time. Would prefer to reevaluate him after his metabolic status is corrected as I suspect this is the etiology of his atrial fibrillation. If he maintains atrial fibrillation despite routine hemodialysis and normal electrolyte states that we would have to reconsider elective direct-current cardioversion at a later date. This would preferably be after 4 to 6 weeks of oral anticoagulation therapy. The patient is a DNR CCA. I reaffirmed that with him this morning. (2) Acute hyperkalemia: PLAN: Patient is being dialyzed this morning. Patient is also uremic by chemical evaluation. He is undergoing dialysis at this point in time. (3) Ischemic cardiomyopathy: PLAN: The last echocardiogram we have is from [facility] in 2021 and at that time his EF was 45%. I would recommend that we reevaluate his LV function with an echocardiogram during this admission. (4) Hx of CABG: PLAN: In 2016 the patient received a CARTY to the LAD a vein graft to the distal right coronary and a vein graft to the OM branch of the circumflex. He denies any anginal type symptoms. PLAN: Plan 1. Will await correction of his metabolic derangement before pursuing any further definitive therapy for his atrial fibrillation. 2. Continue Eliquis 5 mg twice daily. 3. Will follow-up with further recommendations after the echocardiogram is available. Charges/Coding Visit Charges Inpatient E&M: 87698 [facility] Hosp L2
[2024-12-12] MEDS: 0.9% Normal Saline 1,000 ML IV.SOLN. 1000 ML OPERA.SITE (09:14)
--- NOTE | 2024-12-12 09:35 | PCM.CONS.R ---
Assessment & Plan Assessment/Plan (1) End-stage renal disease on hemodialysis: PLAN: Plan Assessment/Plan: The patient is a 69-year-old male with past history of ESRD, type 2 diabetes mellitus, hypertension, CAD, ischemic cardiomyopathy with HFrEF, pulmonary hypertension, ankylosing spondylitis, GERD, and hyperlipidemia. Patient presents to the hospital on 12/11/2024 with generalized weakness, nausea and dyspnea. Patient is admitted to the hospital for treatment of decompensated heart failure. Nephrology is following for ESRD and dialysis management. ESRD. Patient usually dialyzes at [facility] on TTS schedule. Patient had missed 2 dialysis treatments on 12/09/2024 and 12/11/2024 prior to admission. Therefore, we will dialyze patient today and again tomorrow on 12/13/2024. I saw the patient and supervised the dialysis treatment today. Patient is tolerating dialysis well. We will dialyze patient again on 12/13/2024 to get him back on TTS schedule. Volume overload/heart failure. We will remove fluid as much as BP will allow with hemodialysis today and tomorrow. HPI Consult Data Date of Consult: 12/13/24 HPI Narrative Reason for Consultation: ESRD, dialysis management HPI Narrative: The patient is a 69-year-old male with past history of ESRD, type 2 diabetes mellitus, hypertension, CAD, ischemic cardiomyopathy with HFrEF, pulmonary hypertension, ankylosing spondylitis, GERD, and hyperlipidemia. Patient presents to the hospital on 12/11/2024 with generalized weakness, nausea and dyspnea. Prior to admission, patient had missed 2 dialysis treatments as outpatient. Nephrology is asked see the patient because of ESRD and dialysis management. Patient denies current chest pain, nausea, or vomiting. Dyspnea has improved. He does have lower extremity edema which is unchanged in severity. Patient makes some urine, and there is no LUTS. [facility] Medical History C. difficile diarrhea Anemia History of GI bleed Pure hypercholesterolemia Ischemic cardiomyopathy Essential hypertension Renal insufficiency Ankylosing spondylitis CAD (coronary artery disease) Overweight (BMI 25.0-29.9) Leg edema Leg swelling Acute systolic heart failure Bradycardia Biliary pleural effusion HTN (hypertension) Ventricular tachyarrhythmia Atherosclerosis of [place] coronary artery of [place] heart without angina pectoris Pulmonary HTN Cardiomyopathy Valvular heart disease NSTEMI (non-ST elevated myocardial infarction) CHF (congestive heart failure) Abscess of right foot Diabetes mellitus with neuropathy Gout DM2 (diabetes mellitus, type 2) Home Medications ?Medication ?Instructions ?Recorded ?Last Taken ?Type latanoprost 0.005 % eye drops 1 drp EACH EYE QHS 06/03/18 12/10/24 History melatonin 5 mg tablet 10 mg PO HS PRN Sleep 08/02/20 12/10/24 History loratadine 10 mg capsule 10 mg PO DAILY PRN allergy symptoms 10/24/21 12/10/24 History sevelamer carbonate 800 mg tablet 800 mg PO TID 05/30/22 12/10/24 History handicap placcard #1 ea 07/07/22 Unknown Rx aspirin 81 mg tablet,delayed 81 mg PO DAILY #90 tabs 04/23/24 12/10/24 Rx release (Adult Aspirin Regimen) bumetanide 2 mg tablet 2 mg PO DAILY FLUID #90 tabs 07/09/24 12/10/24 Rx hydroxyzine HCl 25 mg tablet 25 mg PO Q6 PRN itch 10/28/24 12/10/24 History insulin glargine 100 unit/mL (3 10 unit subcut QPM 10/28/24 Unknown History mL) subcutaneous pen (Lantus Solostar U-100 Insulin) tadalafil 20 mg tablet 20 mg PO DAILY PRN sexual activity 10/28/24 Unknown History atorvastatin 40 mg tablet 40 mg PO DAILY 12/11/24 12/10/24 History benzonatate 100 mg capsule 100 mg PO TID PRN cough 12/11/24 12/10/24 History metolazone 5 mg tablet 5 mg PO DAILY 12/11/24 12/10/24 History pantoprazole 40 mg tablet,delayed 40 mg PO BID 12/11/24 12/10/24 History release trazodone 50 mg tablet 50 mg PO QHS 12/11/24 12/10/24 History vitamin B complex-vitamin C-folic 1 tab PO DAILY 12/11/24 12/10/24 History acid 0.8 mg tablet (Dialyvite 800) Allergy/AdvReac Type Severity Reaction Status Date / Time pregabalin (From Lyrica) Allergy Angioedema Verified 12/11/24 14:17 Family History Father CAD (coronary artery disease) Mother CAD (coronary artery disease) Surgical History History of cataract extraction hx femur surgery Hx of arthroscopy History of open reduction and internal fixation (ORIF) procedure Hx of CABG (~04/12/17) Social History household members: spouse Smoking Status: Former smoker alcohol intake: never substance use type: does not use caffeine: No what type of physical activity do you participate in: none seatbelt use: always do you feel safe at home: Yes ROS ROS Narrative As per HPI, otherwise noncontributory. Physical Exam Narrative General appearance: Alert and oriented x 3, in no apparent distress. HEENT: Atraumatic, normocephalic. Mucous membrane moist. PERRLA, EOMI. Neck: Supple, there is distended JVD. Cardiovascular: Normal S1, S2. No rubs or murmurs. Lungs: Clear to auscultation bilaterally anteriorly. Abdomen: Normal bowel sounds. Soft, nontender, no guarding or rebound. Extremities: Trace lower extremity edema. No clubbing or cyanosis. Neurologic: No focal neurologic deficit. Lab / Micro Data 12/12/24 04:15 12/12/24 04:15 Labs: Laboratory Results - last 24 hr 12/11/24 14:35: WBC 9.1, RBC 4.01 L, Hgb 13.0, Hct 37.2 L, MCV 92.8, MCH 32.4 H, MCHC 34.9, RDW Std Deviation 56.2 H, RDW Coeff of Yuri 17.0 H, Plt Count 120 L, MPV 10.1, Immature Gran % (Auto) 0.400, Neut % (Auto) 77.3 H, Lymph % (Auto) 7.7 L, [place] % (Auto) 13.0 H, Eos % (Auto) 0.9, Baso % (Auto) 0.7, Absolute Neuts (auto) 7.0, Absolute Lymphs (auto) 0.70 L, Nucleated RBC % 0, Sodium 131 L, Potassium 5.9 H, Chloride 84 L, Carbon Dioxide 21.0, Anion Gap 26 H, BUN 124 H*, Creatinine 8.04 H*, Est GFR (MDRD) Non-Af 7 L, BUN/Creatinine Ratio 15.4, Glucose 88, Calcium 10.0, Phosphorus 12.7 H*, Magnesium 2.6 H 12/11/24 20:58: POC Glucose 89 12/11/24 21:34: POC Glucose 133 H 12/11/24 21:35: Sodium 130 L, Potassium 5.9 H, Chloride 85 L, Carbon Dioxide 16.7 L, Anion Gap 29 H, BUN 122 H*, Creatinine 8.21 H*, Estim Creat Clear Calc 9.02 L*, Est GFR (MDRD) Non-Af 7 L, BUN/Creatinine Ratio 14.9, Glucose 148 H, Calcium 9.8, Procalcitonin 1.39 H 12/11/24 23:45: Sodium 129 L, Potassium 5.4 H, Chloride 86 L, Carbon Dioxide 15.9 L, Anion Gap 28 H, BUN 131 H*, Creatinine 8.40 H*, Estim Creat Clear Calc 8.81 L*, Est GFR (MDRD) Non-Af 6 L, BUN/Creatinine Ratio 15.6, Glucose 93, Calcium 9.6 12/12/24 01:00: POC Glucose 75 12/12/24 04:15: WBC 8.2, RBC 3.69 L, Hgb 11.8 L, Hct 33.9 L, MCV 91.9, MCH 32.0, MCHC 34.8, RDW Std Deviation 55.1 H, RDW Coeff of Yuri 16.8 H, Plt Count 128 L, MPV 10.3, Immature Gran % (Auto) 0.500, Neut % (Auto) 75.1 H, Lymph % (Auto) 8.4 L, [place] % (Auto) 14.7 H, Eos % (Auto) 0.9, Baso % (Auto) 0.4, Absolute Neuts (auto) 6.2, Absolute Lymphs (auto) 0.69 L, Nucleated RBC % 0, Sodium 130 L, Potassium 5.3 H, Chloride 86 L, Carbon Dioxide 17.3 L, Anion Gap 27 H, BUN 124 H*, Creatinine 8.32 H*, Estim Creat Clear Calc 8.90 L*, Est GFR (MDRD) Non-Af 6 L, BUN/Creatinine Ratio 14.9, Glucose 68 L, Calcium 9.3, Total Bilirubin 0.93, AST 32, ALT 18, Alkaline Phosphatase 171 H, Total Protein 6.5, Albumin 3.6, Globulin 2.9, Albumin/Globulin Ratio 1.2, Triglycerides 78, Cholesterol 149, LDL Cholesterol, Calc 97, VLDL Cholesterol 16, HDL Cholesterol 36 L, Cholesterol/HDL Ratio 4.12, TSH 3.050 12/12/24 07:33: POC Glucose 114 H Micro: Microbiology 12/11/24 21:30 Mucosa - Nose Respiratory Panel (PCR) - Final 12/11/24 14:42 Mucosa - Nose SARS-CoV-2, Influenza & RSV (PCR) - Final Rhythm Strip Rhythm Strip: A-fib Rate: 77 Ectopy: PVC(s) Imaging Radiology Impression Chest X-Ray 12/11/24 15:10 IMPRESSION: CHF exacerbation. Reading [facility]
--- NOTE | 2024-12-12 09:45 | CASEMGMT ---
SULTANA AMBROSIO assessment: SULTANA AMBROSIO to room with patient for initial transition planning/care coordination assessment. SULTANA AMBROSIO introduced self and role at [facility], pt voices understanding and consents to assessment at this time. Pt resting in bed in no distress at this time. Pt is A/Ox4 at this time and answers all questions appropriately at this time. Care providers, pharmacy, and demographics verified at this time. Strata: 2 PCP: Dr Teixeira Specialists: Dr Jackson, nephro; Dr Claire/Florencia Brian, cardio OP HD: [facility]. Arrives @ 5:40/5:45 AM, treatment starts around 6:20 AM. Preferred Pharmacy: [facility] Insurance: [employer] [facility] Dual Prescription Benefit: [employer] [facility] Dual Living Will/HPOA: Pt states does not have LW/HPOA LNOK: Yun Nuñez/, son and daughter Living Arrangements: Pt states lives with in one-story home w/no steps to enter. Pt states is independent with ADL's. fills his med containers and does most home mgnt tasks. Pt helps w/laundry. Transportation: Pt states drives and states no transportation concerns at this time. [place] takes him to OP HD appts. DME: Pt states has the following DME: walker, hearing aides, lift chair, shower chair, and functioning glucometer w/supplies. He states he checks his BS's about every other day. Pt states no need for any further DME at this time. HHC/SNF: Pt states has not had skilled HHC in the past, only a nurse through his insurance that checked on him occasionally. He was @ [facility] a couple years ago. Pt wishes to discharge home, declines need for HHC or OP therapy, stating, I don't need that. Pt has not been OOB yet today. Made aware to ask for CM, if once he is up OOB, if he feels will need any therapy @ [facility]. Also made aware can f/u with his PCP if he changes his mind once he returns home. He voices understanding. Pt states no concerns with going home at time of discharge. Pt states no further concerns/needs at this time. CM to follow for any further discharge planning/needs. Advised pt to ask for CM if any further questions/concerns/needs arise, voices understanding. Plan: Home DGiauque BSN RN CM
[2024-12-12] MEDS: Aspirin E.C. 81 MG Tablet PO (13:36)
[2024-12-12] MEDS: Pantoprazole Sodium 40 MG in 0.9% Normal Saline (100mL MB+) 100 ML 330 MG IV ×2 (13:36→20:57)
[2024-12-12] MEDS: APIXABAN 5 MG TABLET PO ×2 (13:37→20:54)
[2024-12-12] MEDS: Atorvastatin Calcium 40 MG Tablet PO (13:37)
[2024-12-12] MEDS: Nystatin Powder 15gm Bottle 1 APPLIC TOPICAL ×2 (13:38→20:57)
[2024-12-12] MEDS: Ensure Plus High Protein 120 ML LIQUID PO (13:45)
[2024-12-12 14:06] LABS: Bedside Glucose 63 mg/dL (74-106)
[2024-12-12] MEDS: 0.9% Saline Lock 10 ML Syringe IV ×2 (14:25→20:54)
[2024-12-12] MEDS: Acetaminophen 325 MG Tablet 650 MG PO (14:35)
[2024-12-12 14:54] LABS: Bedside Glucose 71 mg/dL (74-106)
[2024-12-12 15:48] LABS: Bedside Glucose 64 mg/dL (74-106)
[2024-12-12 15:48] LABS: Bedside Glucose 61 mg/dL (74-106)
[2024-12-12] MEDS: SEVELAMER CARBONATE 800 MG TABLET PO (17:46)
[2024-12-12 18:32] LABS: Bedside Glucose 131 mg/dL (74-106)
[2024-12-12] MEDS: traZODone 50 MG Tablet PO (20:54)
[2024-12-12] MEDS: Latanoprost 0.005% 1 Bottle 1 DRP EACH EYE (20:54)
[2024-12-12 23:53] LABS: Bedside Glucose 79 mg/dL (74-106)
[2024-12-13] VITALS (13 sets, daily range): BP systolic 95–258; BP diastolic 56–85; PULSE 70–89; RESP 16–18; TEMP 35.9–36.7; O2SAT 90–96; BMI 25.2; BMI 25.4; BMI 25.1
[2024-12-13 01:52] LABS: Bedside Glucose 83 mg/dL (74-106)
[2024-12-13] MEDS: Acetaminophen 325 MG Tablet 650 MG PO (04:31)
[2024-12-13 05:39] LABS: Absolute Neutrophil Count 5.4 X10^3/uL (2.0-7.7); Basophil# 0.04 X10^3/uL; Basophil% 0.5 % (0-1); Eosinophil# 0.16 X10^3/uL; Eosinophils% 2.1 % (0-5); Hematocrit 36.6 % (40-54); Hemoglobin 12.1 g/dL (13.0-16.5); Lymphocyte % 10.5 % (19-41); Mean Corp Hgb Conc 33.1 g/dL (32-36); Mean Corpuscular Hgb 31.4 pg (27.0-32.0); Mean Corpuscular Volume 95.1 fL (80-94); Mean Platelet Vol. 9.7 fl (6.2-12.0); Monocyte# 1.15 X10^3/uL; Monocyte% 15.1 % (0-10); NRBC Flagged by Analyzer 0 % (0-5); Neutrophil # 5.43 X10^3/uL (2.7-7.7); Neutrophil % 71.5 % (47-70); Platelet Count 146 K/mm3 (150-450); RBC Distribution Width CV 17.4 % (11.6-14.6); RBC Distribution Width SD 58.9 fl (35.1-43.9); Red Blood Count 3.85 M/mm3 (4.6-6.2); White Blood Count 7.6 K/mm3 (4.4-11.0)
[2024-12-13 06:16] LABS: Anion Gap 19 (5-15); BUN 87 mg/dL (4-19); BUN/Creat Ratio 13.2 RATIO (10-20); Calcium,Total 9.4 mg/dL (7.6-11.0); Carbon Dioxide 21.9 mmol/L (21.0-32.0); Chloride 93 mmol/L (98-108); Creatinine, Serum 6.56 mg/dL (0.70-1.20); EST Glomerular Filtration Rate 9 (>60); Estimated Creatinine Clearance 11.28 ml/min (50-250); Glucose 59 mg/dL (70-99); Potassium 4.4 mmol/L (3.3-5.1); Sodium Level 134 mmol/L (133-145)
[2024-12-13] MEDS: Dextrose 10%-Water 250 ML 999 ML IV (06:26)
[2024-12-13 07:06] LABS: Bedside Glucose 50 mg/dL (74-106)
[2024-12-13 07:06] LABS: Bedside Glucose 173 mg/dL (74-106)
--- NOTE | 2024-12-13 09:35 | PCM.DC ---
Discharge Instructions Diet Discharge Diet: 8 Cup Fluid Restriction and Renal Diet DC O2, CPAP, BIPAP needs Home O2 Discharge instructions: No Dressing / Incision Discharge Activity: Return to Normal Activity Weight Bearing Status: Weight bearing as tolerated Dressing / Incision Call your doctor if you observe: Fever of 101 or Higher, Coldness, Increased Pain, Numbness or Tingling, Change in Color, Inability to urinate, Inability to have a bowel movement, Shortness of breath, Dizziness, Fainting spells, Swelling in the ankles, Chest pain, Prolonged hiccupping, Increased palpitations (irregular heartbeat) and Calf discomfort Follow Up Care When: IN 2 WEEKS Test Results: Test results from this visit will be discussed in further detail at your follow-up appointment, if applicable. Discharge Plan Admission Admit Date/Time: 12/11/24 16:45 Primary Reason for Your Visit: Acute decompensated HFrEF. Paroxysmal A-fib. Attending Provider: Sukumar Restrepo Primary Care Provider: Blade Teixeira Consulting Providers: Nata Jackson; Mary Jo Granados Discharge Orders/Prescriptions Prescriptions: New Eliquis 5 mg Tablet 5 mg PO BID 30 Days Qty: 60 0RF midodrine 5 mg Tablet 10 mg PO TIDCM 30 Days Qty: 180 0RF Rx Instructions: Hold for SBP more than 100 mmHg Continued melatonin 5 mg tablet 10 mg PO HS PRN (Reason: Sleep) loratadine 10 mg capsule 10 mg PO DAILY PRN (Reason: allergy symptoms) sevelamer carbonate 800 mg tablet 800 mg PO TID Rx Instructions: must administer with a meal/food (DME) handicap placcard See Rx Instructions .Route .MEDSUPPLY Qty: 1 0RF Rx Instructions: Dx: Debility Exp: 5 years tadalafil 20 mg tablet 20 mg PO DAILY PRN (Reason: sexual activity) hydroxyzine HCl 25 mg tablet 25 mg PO Q6 PRN (Reason: itch) insulin glargine [Lantus Solostar U-100 Insulin] 100 unit/mL (3 mL) insulin pen 10 unit subcut QPM Patient Comments: PT HASNT BEEN NEEDED, BS LOW. latanoprost 1 DROP bottle 1 drp EACH EYE QHS Dialyvite 800 0.8 mg tablet 1 tab PO DAILY trazodone 50 mg tablet 50 mg PO QHS benzonatate 100 mg capsule 100 mg PO TID PRN (Reason: cough) atorvastatin 40 mg tablet 40 mg PO DAILY pantoprazole 40 mg tablet,delayed release (DR/EC) 40 mg PO BID Changed bumetanide 2 mg tablet 2 mg PO UD Qty: 90 3RF Rx Instructions: On the days not on dialysis, Sunday, Sunday, Sunday and Sunday Discontinued metolazone 5 mg tablet 5 mg PO DAILY aspirin [Adult Aspirin Regimen] 81 mg tablet,delayed release (DR/EC) 81 mg PO DAILY Qty: 90 3RF Referrals / Follow Up: Blade Teixeira MD [Primary Care Provider] - Nata Jackson MD [Med Staff - Consulting] - Within 2 Weeks Will Claire MD [Med Staff - Active Staff] - Within 1 Month Disposition Disposition (needs filled in before D/C Order can be placed): Home, Self Care
--- NOTE | 2024-12-13 09:44 | PN.CARD_ITS ---
Subjective Subjective Patient reports that he completed dialysis yesterday without any hypotensive episodes. However, sometimes his recollection of the events is not always accurate. Patient denies any anginal type symptoms he denies any palpitations he reports he has only been out of the bed to go to the bathroom. His blood work does look markedly improved his potassium is within normal limits after his dialysis yesterday. Objective Data Vital Signs: Vital Signs Temp Pulse Resp BP Pulse Ox O2 Del Method 97.6 F L 89 18 99/64 90 Room Air 12/13/24 04:45 12/13/24 04:45 12/13/24 04:45 12/13/24 04:45 12/13/24 09:00 12/13/24 09:00 Oxygen Delivery Method Room Air Weight: 176 lb 9.444 oz Body Mass Index (BMI) 25.2 Intake & Output: Intake and Output for Last 24 Hours 12/11/24 12/12/24 12/13/24 23:59 23:59 23:59 Intake Total 600 / 600 1285 / 1285 250 / 250 Output Total 0 / 0 1910 / 1910 0 / 0 Balance 600 / 600 -625 / -625 250 / 250 Lab / Micro Data 12/13/24 04:40 12/13/24 04:40 Labs: Laboratory Results - last 24 hr 12/12/24 06:40: POC Glucose 61 L 12/12/24 06:51: POC Glucose 64 L 12/12/24 13:43: POC Glucose 63 L 12/12/24 14:23: POC Glucose 71 L 12/12/24 18:13: POC Glucose 131 H 12/12/24 20:49: POC Glucose 79 12/13/24 01:31: POC Glucose 83 12/13/24 04:40: WBC 7.6, RBC 3.85 L, Hgb 12.1 L, Hct 36.6 L, MCV 95.1 H, MCH 31.4, MCHC 33.1, RDW Std Deviation 58.9 H, RDW Coeff of Yuri 17.4 H, Plt Count 146 L, MPV 9.7, Immature Gran % (Auto) 0.300, Neut % (Auto) 71.5 H, Lymph % (Auto) 10.5 L, [place] % (Auto) 15.1 H, Eos % (Auto) 2.1, Baso % (Auto) 0.5, Absolute Neuts (auto) 5.4, Absolute Lymphs (auto) 0.80 L, Nucleated RBC % 0, Sodium 134, Potassium 4.4, Chloride 93 L, Carbon Dioxide 21.9, Anion Gap 19 H, B UN 87 H, Creatinine 6.56 H, Estim Creat Clear Calc 11.28 L, Est GFR (MDRD) Non- Af 9 L, BUN/Creatinine Ratio 13.2, Glucose 59 L, Calcium 9.4 12/13/24 06:21: POC Glucose 50 L 12/13/24 06:45: POC Glucose 173 H Rhythm Strip Rhythm Strip: A-fib Rate: 80 Cardiology Labs/Tests 12/13/24 04:40: WBC 7.6, RBC 3.85 L, Hgb 12.1 L, Hct 36.6 L, MCV 95.1 H, MCH 31.4, MCHC 33.1, Plt Count 146 L, MPV 9.7, Immature Gran % (Auto) 0.300, Neut % (Auto) 71.5 H, Lymph % (Auto) 10.5 L, Fleming % (Auto) 15.1 H, Eos % (Auto) 2.1, Baso % (Auto) 0.5, Absolute Neuts (auto) 5.4, Nucleated RBC % 0, Sodium 134, Potassium 4.4, Chloride 93 L, Carbon Dioxide 21.9, Anion Gap 19 H, BUN 87 H, C reatinine 6.56 H, Est GFR (MDRD) Non-Af 9 L, BUN/Creatinine Ratio 13.2, Glucose 59 L, Calcium 9.4 Rhythm: EKG: ECHO: Stress Test: Cardiac Cath: PCI: CT Surgery: Holter monitor: EPS: PPM: CXR: Chest CT Scan: Radiography Diagnostic Testing: Radiology Impression Echocardiogram 12/11/24 19:30 Interpretation Summary The left ventricular ejection fraction is 25 %. Normal LV size. Moderately severe segmental systolic dysfunction (see wall motion). Pulmonary artery systolic pressure is 60 mmHg. Moderate concentric left ventricular hypertrophy. Ordering Physician: LETTY JI Referring Physician: RIGOBERTO LOVE Performed By: Theresa Maria RCS Physical Exam Const alert and oriented x3 HEENT normocephalic Eyes EOMs intact bilaterally Neck no JVD Chest Chest: midline sternotomy incision Resp normal respiratory effort Auscultation: crackles bilateral base and diminished lung sounds bilateral lower Cardio Rate: regular rate Rhythm: abnormal rhythm irregularly irregular Heart Sounds: S1 normal, S2 normal and murmur systolic I/ soft mid right sternal border; Negative for click or gallop Extremity no pedal edema Neuro Neuro Narrative: Alert and oriented x 3 but is hard of hearing. Psych mental status grossly normal Assessment & Plan Assessment/Plan (1) Paroxysmal atrial fibrillation: PLAN: Patient is currently tolerating oral anticoagulation with Eliquis 5 mg twice daily. Given his age of 69 despite his end-stage renal disease this is appropriate dosing recommendation. The patient's metabolic issues are improving his potassium is now normal after dialysis. He remains in atrial fibrillation. His rate is well-controlled he is on no rate modulating drugs. Midodrine has been started to try and maintain blood pressure for his dialysis. (2) Acute hyperkalemia: PLAN: Patient potassium is now within normal limits after dialysis yesterday. However he remains in atrial fibrillation with a controlled ventricular response. (3) Ischemic cardiomyopathy: PLAN: Patient's EF on his echocardiogram done yesterday was noted to be decreased to 25%. Historically had been in the 45% range. He also has moderate RV dysfunction. He has noted to have 1-2+ tricuspid regurgitation. The patient does not have significant right heart failure by clinical signs. Historically has been very difficult to keep him euvolemic and had his dry weight due to his hypotension with dialysis. We have stopped his Coreg as this was dropping his blood pressure despite only taking it on the days he did not take dialysis. If renal agrees I would recommend we add low-dose lisinopril 2.5 mg daily to his medical regiment. We need to try and gently titrate guideline directed medical therapy to treat his heart failure. Alternatively for comfort as the patient is a DNR CCA, we can forego guideline directed medical therapy and try and control his symptoms and keeping as comfortable as possible with dialysis and volume control. I did briefly discussed this with the patient and his and daughter yesterday. This would need to be confirmed and further discussed by the primary service and the patient's nephrology team. PLAN: Plan 1. Recommend continue Eliquis 5 mg twice daily. Should the patient develop nuisance bleeding this should be discontinued. 2. No other rate modulating medical therapy is indicated. And would avoid Coreg long-term given the patient's issues with blood pressure and his current heart rate and atrial fibrillation. 3. Would consider adding lisinopril 2.5 mg p.o. daily to treat afterload if this is felt to be acceptable from the nephrology team. 4. It does not appear the patient is any longer responding to diuretic therapy. Will defer further management of his diuretic to the nephrology team as well. 5. From a cardiovascular standpoint the patient is slowly deteriorating toward end-stage heart failure. He is palliative and has a DNR CCA in place. Charges/Coding Visit Charges Inpatient E&M: [address] [facility] Hosp L3
[2024-12-13] MEDS: Midodrine HCl 5 MG Tablet 10 MG PO ×2 (10:18→12:44)
--- NOTE | 2024-12-13 13:33 | DS.PCM_ITS ---
Providers Date of Admission: 12/11/24 Date of Discharge: 12/13/24 Primary Care Physician: Dr. Blade Love MD Consultations 12/11/24 19:30 Consult: Nephrology Routine Consulting Provider: Nata Jackson Reason for Consult: Hyperkalemia, Uremia, missed HD x 2 EMERGENT Consult: No MD Notified: Yes Date Notified: 12/12/24 Time Notified: 06:34 Method of Notification: Answering Service Reason For Visit: HF EXAC, HYPERKALEMIA Diagnosis Discharge Diagnosis (1) Paroxysmal atrial fibrillation: Status: Acute Code(s): I48.0 - Paroxysmal atrial fibrillation (2) Acute hyperkalemia: Status: Acute Code(s): E87.5 - Hyperkalemia (3) Ischemic cardiomyopathy: Status: Chronic Code(s): I25.5 - Ischemic cardiomyopathy Plan The patient is a 69 y/o M is being admitted for missing 2 sessions of hemodialysis and URI symptoms, nausea, vomiting, decreased oral intake, urine output and generalized weakness for 2 days prior to ER visit. #1. Acute Decompensated HFrEF/ischemic cardiomyopathy suspected secondary to primarily missing dialysis x 2 sessions, complicated by onset of intractable nausea and emesis possibly because of uremia: Will admit to PCU, maintain on cardiac telemetry, monitor I/Os, maintain on intake restriction, ECHO requested as none noted since 2021, IV laxis until HD available, nephrology consulted for dialysis preferentially today, continue medical therapy, magnesium level requested, place neck vanessa wraps bilateral lower extremity elevation. Given recent significant difficulties with managing patient dry weight per discussion with patient and family will request cardiology involvement. Given recent significant issues with hypotension especially with dialysis and current dialysis needs will initiate on midodrine as well. 12/13: 2D echo shows EF 25% with normal LV size moderately severe segmental systolic dysfunction, PASP 60 mmHg, moderate concentric LVH. In the past it was 45%. Therefore shows progression of ischemic heart disease/heart failure. Patient not able to tolerate carvedilol and VANESSA/ARB because of low blood pressure and also ESRD. Follow-up in pulmonary office Patient blood pressure has been on lower side therefore prescription for midodrine given. Patient blood pressure has been on lower side, SBP in 100s therefore metolazone discontinued. Bumex 2 mg daily changed to days, the patient not on dialysis. Probably Bumex needs to be also discontinued in nephrology office. #2. ESRD on HD Admission BUN/Cr 124/8.04, GFR 7, prior baseline creatinine noted to be primarily 4.2-4.3 in 2021. There cannot be GARRET on the top of ESRD disease as the definition itself means end-stage renal disease 12/13: Discussed with the sales office coordinator Dr. De La Rosa. Follow-up pulmonary clinic in 2 weeks. Medication changes made as mentioned above. #3. Hyperkalemia: Creatinine got better 5.3 after dialysis 12/13: Potassium 4.4 today #4. Acute hyponatremia, hypochloremia: Admission sodium 131, chloride 84. In the morning it was 130 sodium #5. Acute thrombocytopenia, unclear etiology. Platelet count was 280/295 in May 2022. Has been more than 2 years. Currently 1 28,000. Triple PCR for SARS-CoV-2, flu and RSV are negative. Respiratory panel negative #7. Atrial fibrillation, new onset, rate controlled probably transient from metabolic derangement: EKG in ED w/ atrial fibrillation, rate controlled in the ED and patient and denied history of A-fib. power cleaner operator shows A-fib 2. Patient was seen by analysis reporting developer. #8. CAD: Status post CABG (S/P surgery with CARTY to LAD, SVG to OM system, and SVG to PDA in March 2017 at [facility]), if able to tolerate will continue aspirin, statin, Coreg regimen, not on VANESSA/ARB with underlying renal disease as noted. #9. Diabetes mellitus type II: Hold oral home regimen, continue home insulin regimen however pending blood sugar assessments given clear liquids at this time given nausea and emesis bouts may consider one half dose or holding of hypoglycemia concern, maintained on every 6 hours accu checks w/ ISS. #10. PAF: Patient with EKG with atrial fibrillation rate controlled, will continue Coreg, per current list is not chronically anticoagulated. #11. GERD, history of GI bleed: Will maintain on IV PPI given intractable nausea and emesis until improving. #12. Pulmonary hypertension: Complicates presentation, per records appears he is only on tadalafil and is listed as needed but clarifying to be certain. #13. Hypertension: Continue home regimen including hydralazine, doxazosin, Coreg, PRN hydralazine. #14. Hyperlipidemia: Will continue patient on statin therapy. #15. Valvular heart disease: Remote echo noted from 04/25/2022 from outside facility with mildly dilated LV, moderate LV hypertrophy, LV systolic function mildly decreased with EF 45? percent, grade 2 LV diastolic dysfunction, RV moderately dilated, RV systolic function moderately decreased, mildly dilated LA and RA, moderate 2+ TVR, RVSP 49 mmHg consistent with moderate pulmonary hypertension, mild mitral stenosis, mild PI, mild AI, apical anterior lateral, mid anterolateral, mid inferior septal hypokinesis. Echocardiogram requested as noted above. #16. Former tobacco use: Encourage continued tobacco cessation. #17. Allergic rhinitis: Continue patient home loratadine regimen. #18. DVT prophylaxis: Starting on Eliquis as noted. #18 CODE status: Patient HCPOA and living will are not in place but his who is present would be his medical decision-maker if necessary he notes. Discussed CODE status at length including difference between FULL code, DNR-CCA and DNR-CC status. Following discussions about the differences in these status, requested DNR-CCA, no intubation status. Discharge medication reconciliation done. Discharge follow-up instructions completed. Discharge process discussed with the patient and all questions were answered to patient's satisfaction. Follow with PCP in 1 to 2 weeks Total time spent, exact 35 minutes on discharge meds reconciliation, examination, coordination of care with nurses and ancillary staff, review of imaging and blood test and discussion with the patient on follow-up instructions. Medications at Discharge Home Medications latanoprost 0.005 % eye drops 1 drp EACH EYE QHS 06/03/18 melatonin 5 mg tablet 10 mg PO HS PRN Sleep 08/02/20 loratadine 10 mg capsule 10 mg PO DAILY PRN allergy symptoms 10/24/21 sevelamer carbonate 800 mg tablet 800 mg PO TID 05/30/22 handicap placcard #1 ea 07/07/22 hydroxyzine HCl 25 mg tablet 25 mg PO Q6 PRN itch 10/28/24 insulin glargine 100 unit/mL (3 mL) subcutaneous pen (Lantus Solostar U-100 Insulin) 10 unit subcut QPM 10/28/24 tadalafil 20 mg tablet 20 mg PO DAILY PRN sexual activity 10/28/24 atorvastatin 40 mg tablet 40 mg PO DAILY 12/11/24 benzonatate 100 mg capsule 100 mg PO TID PRN cough 12/11/24 pantoprazole 40 mg tablet,delayed release 40 mg PO BID 12/11/24 trazodone 50 mg tablet 50 mg PO QHS 12/11/24 vitamin B complex-vitamin C-folic acid 0.8 mg tablet (Dialyvite 800) 1 tab PO DAILY 12/11/24 apixaban 5 mg tablet (Eliquis) 5 mg PO BID 30 days #60 tabs 12/13/24 bumetanide 2 mg tablet 2 mg PO UD FLUID #90 tabs 12/13/24 midodrine 5 mg tablet 10 mg (2 x 5 mg) PO TIDCM 30 days #180 tabs 12/13/24 Physical Exam Narrative Seen and examined Patient was admitted with symptoms of chest congestion but no fever, cough or sore throat and generalized weakness. Patient missed 2 days of dialysis last Sunday and . Denies history of A-fib. Had CABG. He still urinates about half cup couple times a day but seems it is getting worse and worse. Physical exam General: Alert, Oriented x3, Cooperative HEENT: Atraumatic, PERRLA, EOMI, Normocephalic Oral: No Gingival or Mucosal Lesions/ Ulcerations Neck: Supple, No JVD, Negative Carotid Bruits Chest wall/Lungs: Air entry diminished in bilateral lung bases. No crepitation/rhonchi Cardiovascular: Irregular rate and rhythm, Normal S1, Normal S2, systolic murmur Abdomen: Bowel Sounds Present, Soft, Non Tender, Non-Distended : No dysuria. No renal angle tenderness. No suprapubic tenderness. On hemodialysis Extremities: Leg swelling/edema better. Capillary Refill Less than 3 Seconds Skin: No rashes, No breakdown Musculoskeletal: Bilateral TKR. Bruise on the right knee. No Tenderness to Palpation of Joints or Extremities Neurological: Cranial nerves II-XII grossly intact, DTR 2+/4. No acute focal neurological deficit. Psych/Mental Status: Flat affect Weight / BMI Weight Weight: 177 lb 4.8 oz Body Mass Index (BMI) 25.4 ABG / Lab / Microbiology Data 12/13/24 04:40 12/13/24 04:40 Laboratory: Laboratory Results - last 24 hr 12/12/24 06:40: POC Glucose 61 L 12/12/24 06:51: POC Glucose 64 L 12/12/24 13:43: POC Glucose 63 L 12/12/24 14:23: POC Glucose 71 L 12/12/24 18:13: POC Glucose 131 H 12/12/24 20:49: POC Glucose 79 12/13/24 01:31: POC Glucose 83 12/13/24 04:40: WBC 7.6, RBC 3.85 L, Hgb 12.1 L, Hct 36.6 L, MCV 95.1 H, MCH 31.4, MCHC 33.1, RDW Std Deviation 58.9 H, RDW Coeff of Yuri 17.4 H, Plt Count 146 L, MPV 9.7, Immature Gran % (Auto) 0.300, Neut % (Auto) 71.5 H, Lymph % (Auto) 10.5 L, [place] % (Auto) 15.1 H, Eos % (Auto) 2.1, Baso % (Auto) 0.5, Absolute Neuts (auto) 5.4, Absolute Lymphs (auto) 0.80 L, Nucleated RBC % 0, Sodium 134, Potassium 4.4, Chloride 93 L, Carbon Dioxide 21.9, Anion Gap 19 H, B UN 87 H, Creatinine 6.56 H, Estim Creat Clear Calc 11.28 L, Est GFR (MDRD) Non- Af 9 L, BUN/Creatinine Ratio 13.2, Glucose 59 L, Calcium 9.4 12/13/24 06:21: POC Glucose 50 L 12/13/24 06:45: POC Glucose 173 H Microbiology: Microbiology 12/11/24 21:30 Mucosa - Nose Respiratory Panel (PCR) - Final 12/11/24 14:42 Mucosa - Nose SARS-CoV-2, Influenza & RSV (PCR) - Final Radiography Diagnostic Testing: Radiology Impression Echocardiogram 12/11/24 19:30 Interpretation Summary The left ventricular ejection fraction is 25 %. Normal LV size. Moderately severe segmental systolic dysfunction (see wall motion). Pulmonary artery systolic pressure is 60 mmHg. Moderate concentric left ventricular hypertrophy. Ordering Physician: LETTY JI Referring Physician: BLDAE LOVE Performed By: Theresa Maria RCS D/C Instructions Discharge Diet: 8 Cup Fluid Restriction and Renal Diet Weight Bearing Status: Weight bearing as tolerated Call your doctor if you observe: Fever of 101 or Higher, Coldness, Increased Pain, Numbness or Tingling, Change in Color, Inability to urinate, Inability to have a bowel movement, Shortness of breath, Dizziness, Fainting spells, Swelling in the ankles, Chest pain, Prolonged hiccupping, Increased palpitations (irregular heartbeat) and Calf discomfort DC O2, CPAP, BIPAP Needs Home O2 Discharge instructions: No When: IN 2 WEEKS Meaningful Use Info Meaningful Use Meaningful Use Diagnoses (Choose all that apply): CHF CHF VANESSA/ARB ordered at discharge?: No Reason VANESSA/ARB not ordered?: Worsening renal disease Documented LVEF (%): 25 Ischemic Stroke Statin Dosing Therapy Reference: STATIN DOSE THERAPY REFERENCE: * Patients > 75 years receive moderate or high dose statin therapy. * Patients 75 years or YOUNGER should receive HIGH intensity statin dose unless contraindicated. You will be required to document reason for non-treatment if statin daily dose does not meet guidelines. HIGH DOSE STATIN THERAPY DAILY Atorvastatin > than or = to 40 mg Rosuvastatin > than or = to 20 mg Amlodipine + Atorvastatin > than or = to 2.5/40 mg Ezetimibe + Simvastatin 10/80 mg Simvastatin 80mg Discharge Plan Admission Admit Date/Time: 12/11/24 16:45 Primary Reason for Your Visit: Acute decompensated HFrEF. Paroxysmal A-fib. Attending Provider: Sukumar Restrepo Primary Care Provider: Blade Love Consulting Providers: Nata Jackson; Mary Jo Granados Discharge Orders/Prescriptions Prescriptions: New Eliquis 5 mg Tablet 5 mg PO BID 30 Days Qty: 60 0RF midodrine 5 mg Tablet 10 mg PO TIDCM 30 Days Qty: 180 0RF Rx Instructions: Hold for SBP more than 100 mmHg Continued melatonin 5 mg tablet 10 mg PO HS PRN (Reason: Sleep) loratadine 10 mg capsule 10 mg PO DAILY PRN (Reason: allergy symptoms) sevelamer carbonate 800 mg tablet 800 mg PO TID Rx Instructions: must administer with a meal/food (DME) handicap placcard See Rx Instructions .Route .MEDSUPPLY Qty: 1 0RF Rx Instructions: Dx: Debility Exp: 5 years tadalafil 20 mg tablet 20 mg PO DAILY PRN (Reason: sexual activity) hydroxyzine HCl 25 mg tablet 25 mg PO Q6 PRN (Reason: itch) insulin glargine [Lantus Solostar U-100 Insulin] 100 unit/mL (3 mL) insulin pen 10 unit subcut QPM Patient Comments: PT HASNT BEEN NEEDED, BS LOW. latanoprost 1 DROP bottle 1 drp EACH EYE QHS Dialyvite 800 0.8 mg tablet 1 tab PO DAILY trazodone 50 mg tablet 50 mg PO QHS benzonatate 100 mg capsule 100 mg PO TID PRN (Reason: cough) atorvastatin 40 mg tablet 40 mg PO DAILY pantoprazole 40 mg tablet,delayed release (DR/EC) 40 mg PO BID Changed bumetanide 2 mg tablet 2 mg PO UD Qty: 90 3RF Rx Instructions: On the days not on dialysis, Sunday, Sunday, Sunday and Sunday Discontinued metolazone 5 mg tablet 5 mg PO DAILY aspirin [Adult Aspirin Regimen] 81 mg tablet,delayed release (DR/EC) 81 mg PO DAILY Qty: 90 3RF Referrals / Follow Up: Nata Jackson MD [Med Staff - Consulting] - Within 2 Weeks Will Claire MD [Med Staff - Active Staff] - Within 1 Month Balde Love MD [Primary Care Provider] - Disposition Disposition (needs filled in before D/C Order can be placed): Home, Self Care Charges/Coding Visit Charges Inpatient E&M: 60256 Disch Hosp >30min
[2024-12-13] MEDS: 0.9% Normal Saline 1,000 ML IV.SOLN. 1000 ML OPERA.SITE (13:47)
--- NOTE | 2024-12-13 14:10 | CASEMGMT ---
Pt has an order for DC placed. Pt has a new Rx for Eliquis. TC to the pts pharmacy who states that the prescriptions are ready for pickup and that the pt has a 0$ copay. SULTANA CM to pt room at this time. Pt family at bedside. Pt is currently getting dialyzed. Pt denies any home-going needs. Pt states that he is independent and that he has transportation through [facility] for dialysis. Pt denies any HHC or OP Tx needs. Pt states that he feels safe with this plan and denies further questions or concerns.
[2024-12-13 14:15] LABS: Bedside Glucose 77 mg/dL (74-106)
[2024-12-13] MEDS: Atorvastatin Calcium 40 MG Tablet PO (15:42)
[2024-12-13] MEDS: Nystatin Powder 15gm Bottle 1 APPLIC TOPICAL (15:43)
[2024-12-13] MEDS: APIXABAN 5 MG TABLET PO (15:43)
[2024-12-13] MEDS: Aspirin E.C. 81 MG Tablet PO (15:43)
== END 2024-12-13 16:53 | disposition home or self-care (01) | DRG 640 ==
LOC: ED 18:30 → PCU 18:33
PROVIDERS: Admitting Provider Family Medicine; Emergency Provider Emergency Medicine; PCP Family Medicine; Visit Provider Internal Medicine
DX: E87.79 Other fluid overload (principal); N18.6 End stage renal disease; I50.21 Acute systolic (congestive) heart failure; I13.2 Hypertensive heart and chronic kidney disease with heart failure and with stage 5 chronic kidney disease, or end stage renal disease; D69.6 Thrombocytopenia, unspecified; Z66 Do not resuscitate; Z99.2 Dependence on renal dialysis; E11.40 Type 2 diabetes mellitus with diabetic neuropathy, unspecified; I48.0 Paroxysmal atrial fibrillation; E87.1 Hypo-osmolality and hyponatremia; E87.5 Hyperkalemia; Z79.4 Long term (current) use of insulin; J30.9 Allergic rhinitis, unspecified; K21.9 Gastro-esophageal reflux disease without esophagitis; I25.10 Atherosclerotic heart disease of native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 angina pectoris; I25.5 Ischemic cardiomyopathy; E11.22 Type 2 diabetes mellitus with diabetic chronic kidney disease; I25.2 Old myocardial infarction; E78.5 Hyperlipidemia, unspecified; Z95.1 Presence of aortocoronary bypass graft; Z87.891 Personal history of nicotine dependence; Z79.899 Other long term (current) drug therapy
CPT/HCPCS: 36415; 71046; 80048; 80053; 80061; 82962; 83735; 84100; 84145; 84443; 85025; 87631; 87633; 90937; 93005; 93306; 94640; 94668; 97802; 99285; Q9957; A4216; G0257; J0612; J1940; J2405

== ENCOUNTER 2024-12-22 18:21 | Emergency (ER) | payer MEDICARE, MEDICAID, SELFPAY ==
[2024-12-22 18:22] VITALS: BP 126/77; PULSE 71; RESP 18; TEMP 36.6; O2SAT 96
[2024-12-22 19:16] LABS: Color, Urine Brown (Yellow); Glucose, Dipstick Normal (Normal); Ketone-Dipstick 5 mg/dl (Negative); Leukocyte Esterase-Dipstick 100 /ul (Negative); Nitrite-Dipstick Positive (Negative); Occult Blood-Urine 250 /ul (Negative); Protein-Dipstick 100 mg/dl (Negative); Urine Clarity Cloudy (Clear); Urine Urobilinogen Normal (Normal)
[2024-12-22 19:17] LABS: Urine Bilirubin Dipstick 1 mg/dL (Negative)
[2024-12-22 19:28] LABS: Absolute Lymphocyte Count 0.83 X10^3/uL (0.83-4.51); Absolute Neutrophil Count 4.2 X10^3/uL (2.0-7.7); Basophil# 0.02 X10^3/uL; Basophil% 0.3 % (0-1); Eosinophil# 0.13 X10^3/uL; Eosinophils% 2.2 % (0-5); Hematocrit 38.3 % (40-54); Hemoglobin 12.4 g/dL (13.0-16.5); Lymphocyte # 0.83 X10^3/ul (0.83-4.51); Lymphocyte % 13.9 % (19-41); Mean Corp Hgb Conc 32.4 g/dL (32-36); Mean Corpuscular Hgb 31.6 pg (27.0-32.0); Mean Corpuscular Volume 97.5 fL (80-94); Mean Platelet Vol. 9.9 fl (6.2-12.0); Monocyte# 0.83 X10^3/uL; Monocyte% 13.9 % (0-10); NRBC Flagged by Analyzer 0 % (0-5); Neutrophil # 4.16 X10^3/uL (2.7-7.7); Neutrophil % 69.4 % (47-70); Platelet Count 100 K/mm3 (150-450); RBC Distribution Width CV 16.8 % (11.6-14.6); RBC Distribution Width SD 59.9 fl (35.1-43.9); Red Blood Count 3.93 M/mm3 (4.6-6.2)
[2024-12-22 19:46] LABS: Red Blood Cells-Urine > 100 SEEN /hpf (0-5); White Blood Cells 10-25 SEEN /hpf (0-5)
[2024-12-22 19:47] LABS: Bacteria 3+ /hpf (None Seen); Squamous Epithelial Cells - UA 0-5 SEEN /hpf (0-5)
[2024-12-22 19:48] LABS: Mucous, Urine RARE /hpf (<or=2+)
[2024-12-22 19:49] LABS: Anion Gap 17 (5-15); BUN 68 mg/dL (4-19); BUN/Creat Ratio 12.2 RATIO (10-20); Calcium,Total 10.1 mg/dL (7.6-11.0); Chloride 90 mmol/L (98-108); Creatinine, Serum 5.57 mg/dL (0.70-1.20); EST Glomerular Filtration Rate 11 (>60); Glucose 152 mg/dL (70-99); Potassium 4.1 mmol/L (3.3-5.1); Sodium Level 133 mmol/L (133-145)
--- NOTE | 2024-12-22 20:10 | EDS_ITS ---
<Statement entered by Nicho Nelson DO - 12/22/24 21:51> Patient was seen and examined with physician head start assistant teacher Aleshia All components of the history and physical confirmed and agreed. History of present illness and physical exam: Patient is a 69-year-old male past medical history of anemia, paroxysmal atrial fibrillation, CAD, ankylosing spondylitis, hypertension, CHF, type 2 diabetes who presents to the emergency department with a chief complaint of unable to urinate for the last 4 days. Patient states that this has happened before and notes that he had a catheter placed and removed and after that he was able to urinate. Patient states that he goes to dialysis on Sunday, , Sunday. He states that his last dialyzed on Sunday. He states that he sti ll does make urine. He denies any fevers, chills, trauma to the back and states that has been having normal bowel movements. Review of systems: Agree with above Physical exam: Agree with above will add to the neuroexam no saddle anesthesia noted sensation grossly intact MDM Patient is a 69-year-old male who presented to the emergency department with a chief complaint of urinary tension of the last 4 days. On the differential diagnose includes but limited to BPH, UTI. Once workup is obtained reviewed he will be reevaluated. Patient was bladder scanned and had about 415 cc of urine in his bladder Mc catheter was placed. Patient CBC was reviewed showed no evidence leukocytosis white blood count was 6, hemoglobin is 12, platelet count was noted to be 100. Patient sodium 133, potassium normal 4.1, creatinine was 1.5.57 he is on dialysis, urinalysis reviewed and showed 100 leukocyte esterase positive nitrates greater than 100 red blood cells with 10-25 white cells noted. He has 3+ bacteria. This was sent for culture he was given Rocephin here in the emergency department. We went back into reevaluate the patient and he states that he is not going home with a Mc catheter in place he states that he wants this removed and we recommended that he keeps his send as he has a urinary tract infection that is likely leading to his urinary retention. We stressed the importance that he needs this into drain the bladder and allow the antibiotics to continue to work therefore he can follow-up with urology and they could remove it at that point in time. However after this discussion he is adamant he is not going home with this Mc catheter was removed and he verbalized that with this removed that he could clinically deteriorate especially if he continues to retain urine which could ultimately to his he verbalized understanding of this. Patient was encouraged to return with worsening symptoms and concerns otherwise he follow-up with his primary care physician outpatient setting he was advised to go to dialysis tomorrow. He is agreeable to plan all question concerns answered is discharged home in stable condition. Patient given prescription for cefdinir. Plan: Final impression: Urinary tract infection Urinary retention Disposition: Patient will be discharged home in stable condition Supervising attending attestation: Nicho CHANCE History of Present Illness Chief Complaint: Complaint Narrative Narrative: Patient presenting today with urinary retention he has had over the last 4 days. He has a history of CKD on dialysis, he goes Tuesdays, , and Saturdays. He last was dialyzed on Sunday. He reports he usually urinates twice a day but has been unable to. He reports that this has happened in the past, he was straight cathed and was then able to urinate after that. He reports that he does not want a Mc catheter. He denies fevers, chills, abdominal pain, nausea, flank pain, and vomiting. [facility] Medical History Paroxysmal atrial fibrillation C. difficile diarrhea Anemia History of GI bleed Pure hypercholesterolemia Ischemic cardiomyopathy Essential hypertension Renal insufficiency Ankylosing spondylitis CAD (coronary artery disease) Overweight (BMI 25.0-29.9) Leg edema Leg swelling Acute systolic heart failure Bradycardia Biliary pleural effusion HTN (hypertension) Ventricular tachyarrhythmia Atherosclerosis of [place] coronary artery of [place] heart without angina pectoris Pulmonary HTN Cardiomyopathy Valvular heart disease NSTEMI (non-ST elevated myocardial infarction) CHF (congestive heart failure) Abscess of right foot Diabetes mellitus with neuropathy Gout DM2 (diabetes mellitus, type 2) Home Medications ?Medication ?Instructions ?Recorded ?Last Taken ?Type latanoprost 0.005 % eye drops 1 drp EACH EYE QHS 06/0312/21/24 History melatonin 5 mg tablet 10 mg PO HS PRN Sleep 12/21/24 History loratadine 10 mg capsule 10 mg PO DAILY PRN allergy s ymptoms 10/24/21 12/10/24 History handicap placcard #1 ea 07/07/22 Unknown Rx hydroxyzine HCl 25 mg tablet 25 mg PO Q6 PRN itch 03/12/1912/10/24 History tadalafil 20 mg tablet 20 mg PO DAILY PRN sexual ac tivity 10/28/24 Unknown History atorvastatin 40 mg tablet 40 mg PO DAILY 12/11/24/03/20 History benzonatate 100 mg capsule 100 mg PO TID PRN cough 12/22/24 History pantoprazole 40 mg tablet,delayed 40 mg PO BID 5 12/22/24 History release trazodone 50 mg tablet 50 mg PO QHS 12/11/24 History vitamin B complex-vitamin C-folic 1 tab PO DAILY 12/1112/22/24 History acid 0.8 mg tablet (Dialyvite 800) apixaban 5 mg tablet (Eliquis) 5 mg PO BID 30 days #60 tabs 12/13/24 12/22/24 Rx bumetanide 2 mg tablet 2 mg PO UD FLUID #90 tabs 12/22/24 Rx cefdinir 300 mg capsule 300 mg PO BID #14 caps 12/22 Unknown Rx midodrine 5 mg tablet 5 mg PO TIDCM 12/22/2412/22 History Allergy/AdvReac Type Severity Reaction Status Date / Time pregabalin (From Lyrica) Allergy Angioedema Verified 12/22/24 18:24 Family History Father CAD (coronary artery disease) Mother CAD (coronary artery disease) Surgical History History of cataract extraction hx femur surgery Hx of arthroscopy History of open reduction and internal fixation (ORIF) procedure Hx of CABG (~04/12/17) Social History household members: spouse Smoking Status: Former smoker alcohol intake: never substance use type: does not use caffeine: No what type of physical activity do you participate in: none seatbelt use: always do you feel safe at home: Yes ROS ROS ED Constitutional Constitutional ED: Denies chills or fever(s) Cardiovascular Cardiovascular: Denies chest pain Respiratory/Chest Respiratory/Chest: Denies dyspnea Gastrointestinal Gastrointestinal: Denies abdominal pain, nausea or vomiting Genitourinary Genitourinary ED: Reports other Details: Urinary retention Musculoskeletal Musculoskeletal: Denies back pain Integumentary Denies rash Neurologic Neurologic: Denies weakness EXAM Physical Exam Const Vital Signs: 12/22/24 18:22 12/22/24 20:21 12/22/24 21:22 Temperature 97.8 F 97.6 F L Temperature Source Oral Pulse Rate 71 73 72 Respiratory Rate 18 15 18 Blood Pressure 126/77 H 124/73 H Blood Pressure Mean 93 90 Pulse Ox 96 97 96 Oxygen Delivery Method Room Air Room Air Positive well nourished, well developed and no apparent distress General Appearance ED: well developed HEENT Reports normocephalic and head/scalp atraumatic Mouth ED: Yes moist mucous membranes normal Eyes PERRL and EOMs intact bilaterally Neck full ROM and supple Chest Wall inspection of chest normal Resp normal respiratory effort and clear to auscultation bilaterally Cardio regular rate and regular rhythm GI soft to palpation, non-tender, non-distended and no masses Back/Spine normal ROM and normal to inspection General Back: Negative for CVA tenderness Extremity normal to inspection and full ROM Neuro oriented x3, CN's II-XII intact bilaterally, moves all extremities, no focal motor deficits and no sensory deficits noted Sensorium / Orientation: awake and alert Psych mental status grossly normal and thought process normal Skin no rashes or lesions noted and no wounds MDM MDM MDM Narrative Medical decision making narrative: Patient presenting today with urinary retention he has had over the past 4 days. Otherwise has no acute complaints and is nontoxic-appearing and in no acute distress. Bladder scan was performed and there was about 415 cc of urine in his bladder, Mc catheter was placed, UA obtained and he does have a UTI. CBC overall unremarkable, BMP consistent with his CKD. He was given IV Rocephin, urinary culture obtained. Patient is adamant that he does not want a Mc catheter. I did discuss that he will likely continue to have urinary retention due to his UTI and the Mc catheter is highly recommended, however, he reports that he wants the Mc catheter removed and wants to try to see if he can urinate on his own. He only urinates about twice per day, he does not think that he is going to be able to urinate again this evening but reports that he will return if he continues to have urinary retention and needs a Mc catheter again. He gets dialyzed tomorrow and will also see his VALET SERVICE ATTENDANT. Patient discharged home in stable condition. Lab Data Attestation: I reviewed the patient's lab results. Labs: Laboratory Results - last 24 hr 12/22/24 19:00 WBC 6.0 RBC 3.93 L Hgb 12.4 L Hct 38.3 L MCV 97.5 H MCH 31.6 MCHC 32.4
--- NOTE | 2024-12-22 20:10 | EX.ED.GUMALE ---
HPI History of Present Illness Chief Complaint: Complaint Narrative Narrative: Patient presenting today with urinary retention he has had over the last 4 days. He has a history of CKD on dialysis, he goes Tuesdays, , and Saturdays. He last was dialyzed on Sunday. He reports he usually urinates twice a day but has been unable to. He reports that this has happened in the past, he was straight cathed and was then able to urinate after that. He reports that he does not want a Mc catheter. He denies fevers, chills, abdominal pain, nausea, flank pain, and vomiting. [facility] Medical History Paroxysmal atrial fibrillation C. difficile diarrhea Anemia History of GI bleed Pure hypercholesterolemia Ischemic cardiomyopathy Essential hypertension Renal insufficiency Ankylosing spondylitis CAD (coronary artery disease) Overweight (BMI 25.0-29.9) Leg edema Leg swelling Acute systolic heart failure Bradycardia Biliary pleural effusion HTN (hypertension) Ventricular tachyarrhythmia Atherosclerosis of [place] coronary artery of [place] heart without angina pectoris Pulmonary HTN Cardiomyopathy Valvular heart disease NSTEMI (non-ST elevated myocardial infarction) CHF (congestive heart failure) Abscess of right foot Diabetes mellitus with neuropathy Gout DM2 (diabetes mellitus, type 2) Home Medications ?Medication ?Instructions ?Recorded ?Last Taken ?Type latanoprost 0.005 % eye drops 1 drp EACH EYE QHS 06/03/18 12/21/24 History melatonin 5 mg tablet 10 mg PO HS PRN Sleep 08/02/20 12/21/24 History loratadine 10 mg capsule 10 mg PO DAILY PRN allergy symptoms 10/24/21 12/10/24 History handicap placcard #1 ea 07/07/22 Unknown Rx hydroxyzine HCl 25 mg tablet 25 mg PO Q6 PRN itch 10/28/24 12/10/24 History tadalafil 20 mg tablet 20 mg PO DAILY PRN sexual activity 10/28/24 Unknown History atorvastatin 40 mg tablet 40 mg PO DAILY 12/11/24 12/21/24 History benzonatate 100 mg capsule 100 mg PO TID PRN cough 12/11/24 12/22/24 History pantoprazole 40 mg tablet,delayed 40 mg PO BID 12/11/24 12/22/24 History release trazodone 50 mg tablet 50 mg PO QHS 12/11/24 12/21/24 History vitamin B complex-vitamin C-folic 1 tab PO DAILY 12/11/24 12/22/24 History acid 0.8 mg tablet (Dialyvite 800) apixaban 5 mg tablet (Eliquis) 5 mg PO BID 30 days #60 tabs 12/13/24 12/22/24 Rx bumetanide 2 mg tablet 2 mg PO UD FLUID #90 tabs 12/13/24 12/22/24 Rx cefdinir 300 mg capsule 300 mg PO BID #14 caps 12/22/24 Unknown Rx midodrine 5 mg tablet 5 mg PO TIDCM 12/22/24 12/22/24 History Allergy/AdvReac Type Severity Reaction Status Date / Time pregabalin (From Lyrica) Allergy Angioedema Verified 12/22/24 18:24 Family History Father CAD (coronary artery disease) Mother CAD (coronary artery disease) Surgical History History of cataract extraction hx femur surgery Hx of arthroscopy History of open reduction and internal fixation (ORIF) procedure Hx of CABG (~04/12/17) Social History household members: spouse Smoking Status: Former smoker alcohol intake: never substance use type: does not use caffeine: No what type of physical activity do you participate in: none seatbelt use: always do you feel safe at home: Yes ROS ROS ED Constitutional Constitutional ED: Denies chills or fever(s) Cardiovascular Cardiovascular: Denies chest pain Respiratory/Chest Respiratory/Chest: Denies dyspnea Gastrointestinal Gastrointestinal: Denies abdominal pain, nausea or vomiting Genitourinary Genitourinary ED: Reports other Details: Urinary retention Musculoskeletal Musculoskeletal: Denies back pain Integumentary Denies rash Neurologic Neurologic: Denies weakness EXAM Physical Exam Const Vital Signs: 12/22/24 18:22 12/22/24 20:21 12/22/24 21:22 Temperature 97.8 F 97.6 F L Temperature Source Oral Pulse Rate 71 73 72 Respiratory Rate 18 15 18 Blood Pressure 126/77 H 124/73 H Blood Pressure Mean 93 90 Pulse Ox 96 97 96 Oxygen Delivery Method Room Air Room Air Positive well nourished, well developed and no apparent distress General Appearance ED: well developed HEENT Reports normocephalic and head/scalp atraumatic Mouth ED: Yes moist mucous membranes normal Eyes PERRL and EOMs intact bilaterally Neck full ROM and supple Chest Wall inspection of chest normal Resp normal respiratory effort and clear to auscultation bilaterally Cardio regular rate and regular rhythm GI soft to palpation, non-tender, non-distended and no masses Back/Spine normal ROM and normal to inspection General Back: Negative for CVA tenderness Extremity normal to inspection and full ROM Neuro oriented x3, CN's II-XII intact bilaterally, moves all extremities, no focal motor deficits and no sensory deficits noted Sensorium / Orientation: awake and alert Psych mental status grossly normal and thought process normal Skin no rashes or lesions noted and no wounds MDM MDM MDM Narrative Medical decision making narrative: Patient presenting today with urinary retention he has had over the past 4 days. Otherwise has no acute complaints and is nontoxic-appearing and in no acute distress. Bladder scan was performed and there was about 415 cc of urine in his bladder, Mc catheter was placed, UA obtained and he does have a UTI. CBC overall unremarkable, BMP consistent with his CKD. He was given IV Rocephin, urinary culture obtained. Patient is adamant that he does not want a Mc catheter. I did discuss that he will likely continue to have urinary retention due to his UTI and the Mc catheter is highly recommended, however, he reports that he wants the Mc catheter removed and wants to try to see if he can urinate on his own. He only urinates about twice per day, he does not think that he is going to be able to urinate again this evening but reports that he will return if he continues to have urinary retention and needs a Mc catheter again. He gets dialyzed tomorrow and will also see his BRASS FINISHER. Patient discharged home in stable condition. Lab Data Attestation: I reviewed the patient's lab results. Labs: Laboratory Results - last 24 hr 12/22/24 19:00 WBC 6.0 RBC 3.93 L Hgb 12.4 L Hct 38.3 L MCV 97.5 H MCH 31.6 MCHC 32.4 RDW Std Deviation 59.9 H RDW Coeff of Yuri 16.8 H Plt Count 100 L MPV 9.9 Immature Gran % (Auto) 0.300 Neut % (Auto) 69.4 Lymph % (Auto) 13.9 L [place] % (Auto) 13.9 H Eos % (Auto) 2.2 Baso % (Auto) 0.3 Absolute Neuts (auto) 4.2 Absolute Lymphs (auto) 0.83 Nucleated RBC % 0 Sodium 133 Potassium 4.1 Chloride 90 L Carbon Dioxide 26.0 Anion Gap 17 H BUN 68 H Creatinine 5.57 H Est GFR (MDRD) Non-Af 11 L BUN/Creatinine Ratio 12.2 Glucose 152 H Calcium 10.1 Urine Color Brown Urine Clarity Cloudy Urine pH 5.0 Ur Specific [place] 1.020 Urine Protein 100 H Urine Glucose (UA) Normal Urine Ketones 5 H Urine Occult Blood 250 H Urine Nitrite Positive H Urine Bilirubin 1 H Urine Urobilinogen Normal Ur Leukocyte Esterase 100 H Urine RBC > 100 SEEN Urine WBC 10-25 SEEN Ur Squamous Epith Cells 0-5 SEEN Urine Bacteria 3+ Urine Mucus RARE Discharge Plan Triage Chief Complaint: Complaint ED Midlevel Provider: Shira Wood ED Provider: Nicho Nelson Dx/Rx/DC Orders Clinical Impression: UTI (urinary tract infection) Instructions: UTIs Prescriptions: New cefdinir 300 mg capsule 300 mg PO BID Qty: 14 0RF No Action melatonin 5 mg tablet 10 mg PO HS PRN (Reason: Sleep) loratadine 10 mg capsule 10 mg PO DAILY PRN (Reason: allergy symptoms) (DME) handicap placcard See Rx Instructions .Route .MEDSUPPLY Qty: 1 0RF Rx Instructions: Dx: Debility Exp: 5 years tadalafil 20 mg tablet 20 mg PO DAILY PRN (Reason: sexual activity) hydroxyzine HCl 25 mg tablet 25 mg PO Q6 PRN (Reason: itch) latanoprost 1 DROP bottle 1 drp EACH EYE QHS Dialyvite 800 0.8 mg tablet 1 tab PO DAILY trazodone 50 mg tablet 50 mg PO QHS benzonatate 100 mg capsule 100 mg PO TID PRN (Reason: cough) atorvastatin 40 mg tablet 40 mg PO DAILY pantoprazole 40 mg tablet,delayed release (DR/EC) 40 mg PO BID Eliquis 5 mg Tablet 5 mg PO BID 30 Days Qty: 60 0RF bumetanide 2 mg tablet 2 mg PO UD Qty: 90 3RF Rx Instructions: On the days not on dialysis, Sunday, Sunday, Sunday and Sunday midodrine 5 mg Tablet 5 mg PO TIDCM Rx Instructions: Hold for SBP more than 100 mmHg Primary Care Provider: Blade Teixeira Referrals: Braeden Allen MD [Med Staff - Active Staff] - 1 Week Blade Teixeira MD [Primary Care Provider] - 5-7 Days Activity Restrictions/Additional Instructions: Please return if you are unable to urinate, take antibiotics as prescribed. Follow-up closely with your PCP. Print Language: [place] Disposition Disposition: Home, Self Care
[2024-12-22] MEDS: Ceftriaxone 1 GM/50 ML BAG IV (20:16)
--- NOTE | 2024-12-22 20:18 | ED.RN ---
Patient educated that urinary retention can cause UTIs and that removing the butler at this time can cause patient to retain urine again. Patient continuously interrupting this RN during education and not receptive to information being provided. Patient states he has had multiple UTIs.
[2024-12-22 20:21] VITALS: PULSE 73; RESP 15; O2SAT 97
[2024-12-22 21:22] VITALS: BP 124/73; PULSE 72; RESP 18; TEMP 36.4; O2SAT 96
== END 2024-12-22 21:44 | disposition home or self-care (01) ==
PROVIDERS: Physician Assistant; Emergency Provider Emergency Medicine; PCP Family Medicine; Visit Provider Emergency Medicine
DX: N39.0 Urinary tract infection, site not specified (principal); I13.0 Hypertensive heart and chronic kidney disease with heart failure and stage 1 through stage 4 chronic kidney disease, or unspecified chronic kidney disease; I50.21 Acute systolic (congestive) heart failure; E11.22 Type 2 diabetes mellitus with diabetic chronic kidney disease; E11.40 Type 2 diabetes mellitus with diabetic neuropathy, unspecified; R33.9 Retention of urine, unspecified; N18.9 Chronic kidney disease, unspecified; E78.00 Pure hypercholesterolemia, unspecified; I25.10 Atherosclerotic heart disease of native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 angina pectoris; I25.5 Ischemic cardiomyopathy; Z79.01 Long term (current) use of anticoagulants; Z79.899 Other long term (current) drug therapy; Z87.891 Personal history of nicotine dependence; Z99.2 Dependence on renal dialysis
CPT/HCPCS: 51702; 80048; 81001; 85025; 87086; 87088; 96365; 99284

== ENCOUNTER 2024-12-29 15:14 | Emergency (ER) | payer MEDICARE, MEDICAID, SELFPAY ==
[2024-12-29 15:14] VITALS: BP 119/66; PULSE 75; RESP 18; TEMP 36.3; O2SAT 100
[2024-12-29 15:16] VITALS: BP 119/66; PULSE 75; RESP 18; TEMP 36.3; O2SAT 100; BMI 25.4
[2024-12-29 16:16] VITALS: BP 121/68; PULSE 78; RESP 16; TEMP 36.6; O2SAT 98
--- NOTE | 2024-12-29 16:32 | CT_ITS ---
PROCEDURE: ABDOMEN/PELVIS WITHOUT CONT 12/29/2024 REASON FOR EXAM: NO URINARY OUTPUT TECHNIQUE: Abdomen and pelvis CT without intravenous contrast. Noncontrast technique limits evaluation of the abdominal and pelvic viscera. Coronal and Sagittal reconstruction series were provided. One or more dose reduction techniques were used (e.g., Automated exposure control, adjustment of the mA and/or kV according to patient size, use of iterative reconstruction technique). PATIENT PREPARATION: Per protocol ORAL CONTRAST TYPE: None. AMOUNT: mL COMPARISON: CT abdomen and pelvis 09/23/2020 FINDINGS: Lung bases: Moderate right and trace left pleural effusions with atelectasis. Bilateral interstitial thickening. Scattered ground-glass opacities, most prominent in the right middle lobe. Moderate cardiomegaly. Severe coronary artery calcifications. Dense mitral annular calcifications. Bilateral gynecomastia. Liver: Normal size. No obvious mass. Gallbladder: Nonspecific circumferential wall thickening, likely secondary to pericholecystic fluid. Tiny layering cholelithiasis. Spleen: Splenomegaly, craniocaudal length 14.1 cm. No focal lesion. Pancreas: Normal size. No surrounding inflammation. Adrenals: Unremarkable. Kidneys: No urolithiasis. No hydronephrosis. Bladder: Circumferential urinary bladder wall thickening. Reproductive Organs: No pelvic mass. Bowel: Stomach is unremarkable. No bowel dilation or wall thickening. Colonic diverticulosis without diverticulitis. Large amount of colonic stool. Appendix: The appendix is not identified. There is no inflammatory process identified in the right lower quadrant to suggest appendicitis. Lymph nodes: No suspicious lymph node enlargement. Vasculature: Severe diffuse atherosclerotic calcifications are noted. Peritoneum / Retroperitoneum: Moderate ascites. Bones: Degenerative changes of the spine. Diffuse subcutaneous edema. CT/Abdomen/Pelvis without Cont IMPRESSION: Moderate ascites. Colonic diverticulosis without diverticulitis. Other findings as described above. Reading Location: [facility]
--- NOTE | 2024-12-29 16:32 | EX.ED.GUMALE ---
HPI History of Present Illness Chief Complaint: Complaint Informant: patient, spouse/S.O. and family Narrative Narrative: 69-year-old male presenting to the emergency room with lack of urinary output. Patient states he gets dialysis Sunday and Sunday. He sees Dr. Jackson for nephrology. He states that typically he will urinate 1 time per day unless at the dialysis day when he will not urinate to the following day. Family reports they were recently in the emergency room with urinary retention and had a Mc catheter placed but he did not want to go home with that so they removed it. He has been on cefdinir for UTI. He has not had a urination now for at least 4 to 5 days. He denies any suprapubic discomfort or pressure that he would expect with not being able to urinate. He notes hard bowel movements. He denies any flank pain. [facility] Medical History Persistent atrial fibrillation Paroxysmal atrial fibrillation C. difficile diarrhea Anemia History of GI bleed Pure hypercholesterolemia Ischemic cardiomyopathy Essential hypertension Renal insufficiency Ankylosing spondylitis CAD (coronary artery disease) Overweight (BMI 25.0-29.9) Leg edema Leg swelling Acute systolic heart failure Bradycardia Biliary pleural effusion HTN (hypertension) Ventricular tachyarrhythmia Atherosclerosis of [place] coronary artery of [place] heart without angina pectoris Pulmonary HTN Cardiomyopathy Valvular heart disease NSTEMI (non-ST elevated myocardial infarction) CHF (congestive heart failure) Abscess of right foot Diabetes mellitus with neuropathy Gout DM2 (diabetes mellitus, type 2) Home Medications ?Medication ?Instructions ?Recorded ?Last Taken ?Type latanoprost 0.005 % eye drops 1 drp EACH EYE QHS 06/03/18 12/21/24 History melatonin 5 mg tablet 10 mg PO HS PRN Sleep 08/02/20 12/21/24 History loratadine 10 mg capsule 10 mg PO DAILY PRN allergy symptoms 10/24/21 12/10/24 History handicap placcard #1 ea 07/07/22 Unknown Rx hydroxyzine HCl 25 mg tablet 25 mg PO Q6 PRN itch 10/28/24 12/10/24 History tadalafil 20 mg tablet 20 mg PO DAILY PRN sexual activity 10/28/24 Unknown History atorvastatin 40 mg tablet 40 mg PO DAILY 12/11/24 12/21/24 History benzonatate 100 mg capsule 100 mg PO TID PRN cough 12/11/24 12/22/24 History pantoprazole 40 mg tablet,delayed 40 mg PO BID 12/11/24 12/22/24 History release trazodone 50 mg tablet 50 mg PO QHS 12/11/24 12/21/24 History vitamin B complex-vitamin C-folic 1 tab PO DAILY 12/11/24 12/22/24 History acid 0.8 mg tablet (Dialyvite 800) bumetanide 2 mg tablet 2 mg PO UD FLUID #90 tabs 12/13/24 12/22/24 Rx cefdinir 300 mg capsule 300 mg PO BID #14 caps 12/22/24 Unknown Rx apixaban 5 mg tablet (Eliquis) 5 mg PO BID #180 tabs 12/26/24 Unknown Rx midodrine 5 mg tablet 5 mg PO TID #270 tabs 12/26/24 Unknown Rx carvedilol 12.5 mg tablet 12.5 mg PO BID 12/29/24 Unknown History insulin glargine 100 unit/mL (3 unit subcut 12/29/24 Unknown History mL) subcutaneous pen (Lantus Solostar U-100 Insulin) metolazone 5 mg tablet 5 mg PO DAILY 12/29/24 Unknown History Allergy/AdvReac Type Severity Reaction Status Date / Time pregabalin (From Lyrica) Allergy Angioedema Verified 12/29/24 15:14 Family History Father CAD (coronary artery disease) Mother CAD (coronary artery disease) Surgical History History of cataract extraction hx femur surgery Hx of arthroscopy History of open reduction and internal fixation (ORIF) procedure Hx of CABG (~04/12/17) Social History household members: spouse Smoking Status: Former smoker alcohol intake: never substance use type: does not use caffeine: No what type of physical activity do you participate in: none seatbelt use: always do you feel safe at home: Yes ROS ROS ED Constitutional Constitutional ED: Denies chills, fever(s) or weight loss Eyes Eyes: Denies change in vision or diplopia ENT ENT ED: Denies ear pain, rhinorrhea or sore throat Cardiovascular Cardiovascular: Denies chest pain, orthopnea, palpitations or racing heartbeat Respiratory/Chest Respiratory/Chest: Denies cough, dyspnea or orthopnea Gastrointestinal Gastrointestinal: Denies abdominal pain, diarrhea, nausea or vomiting Genitourinary Genitourinary ED: Reports other Details: No urinary output ; Denies dysuria, hematuria or urinary frequency Musculoskeletal Musculoskeletal: Denies arthralgias, back pain or myalgias Integumentary Denies abscess or rash Neurologic Neurologic: Denies headache(s) or weakness Psychiatric Psychiatric: Denies anxiety, depression, suicidal ideation or suicidal thoughts Endocrine Endocrinology: Denies polydipsia, polyphagia or polyuria Allergic/Immunologic Allergic/Immunologic ED: Denies mouth swelling, tongue swelling or urticaria EXAM Physical Exam Const Vital Signs: 12/29/24 15:14 12/29/24 15:16 12/29/24 16:16 Temperature 97.4 F L 97.4 F L 97.8 F Temperature Source Temporal Oral Oral Pulse Rate 75 75 78 Respiratory Rate 18 18 16 Blood Pressure 119/66 119/66 121/68 H Blood Pressure Mean 83 83 85 Pulse Ox 100 100 98 Oxygen Delivery Method Room Air Room Air Room Air 12/29/24 17:00 12/29/24 17:14 12/29/24 18:46 Temperature 97.6 F L Temperature Source Temporal Pulse Rate 78 78 75 Respiratory Rate 16 16 16 Blood Pressure 112/75 118/62 114/78 Blood Pressure Mean 87 80 90 Pulse Ox 93 93 94 Oxygen Delivery Method Room Air Positive well nourished and well developed General Appearance ED: well developed and NAD HEENT Reports normocephalic, head/scalp atraumatic and moist mucous membranes Eyes PERRL and EOMs intact bilaterally Neck no lymphadenopathy, supple and no JVD Resp normal respiratory effort and clear to auscultation bilaterally Cardio regular rate, regular rhythm and no murmurs GI normal to inspection, nondistended, normoactive bowel sounds and non-tender GI Narrative: Small reducible umbilical hernia Palpation: soft Back/Spine no CVA tenderness and normal ROM Extremity normal to inspection General Extremety ED: Negative for edema General Extremity: Negative for edema Neuro oriented x3 and CN's II-XII intact bilaterally Sensorium / Orientation: alert Motor Exam: strength 5/5 throughout Psych mental status grossly normal Mood & Affect: Negative for depressed or tearful Skin no rashes or lesions noted and no wounds MDM MDM MDM Narrative Medical decision making narrative: Differential diagnosis includes urinary retention constipation UTI acute kidney injury ureterolithiasis electrolyte abnormalities Bedside ultrasound does not show significant urinary retention. White count returns at 5.2 hemoglobin 12.4 platelet count of 120. Creatinine is 5 BUN is 73 CO2 26 anion gap 15 sodium 130 potassium 3.[address] does not demonstrate any significant hydronephrosis or obvious ureterolithiasis. I do not appreciate any significant urinary retention. I spoke with the patient and the family regarding the above results. Patient will be discharged home. He has dialysis tomorrow. They will plan on discussing his case with his tyre fitter as well as following up with urology. He still has 3 more doses of his antibiotic left. History & Record Review Discussion w/independent historian: Patient and Family Lab Data Attestation: I reviewed the patient's lab results. Labs: Laboratory Results - last 24 hr 12/29/24 14:39 WBC 5.2 RBC 3.86 L Hgb 12.4 L Hct 37.2 L MCV 96.4 H MCH 32.1 H MCHC 33.3 RDW Std Deviation 57.9 H RDW Coeff of Yuri 16.4 H Plt Count 120 L MPV 10.0 Immature Gran % (Auto) 0.200 Neut % (Auto) 70.5 H Lymph % (Auto) 15.3 L [place] % (Auto) 10.5 H Eos % (Auto) 2.5 Baso % (Auto) 1.0 Absolute Neuts (auto) 3.7 Absolute Lymphs (auto) 0.80 L Nucleated RBC % 0 Sodium 130 L Potassium 3.9 Chloride 89 L Carbon Dioxide 26.0 Anion Gap 15 BUN 73 H Creatinine 5.00 H Estim Creat Clear Calc 14.80 L Est GFR (MDRD) Non-Af 12 L BUN/Creatinine Ratio 14.5 Glucose 156 H Calcium 10.2 Radiography Diagnostic Testing: Clinical Impression(s) from Imaging Studies Abdomen/Pelvis CT 12/29/24 16:32 IMPRESSION: Moderate ascites. Colonic diverticulosis without diverticulitis. Other findings as described above. Reading Location: [facility] Discharge Plan Triage Chief Complaint: Complaint ED Provider: Ra Aaron Dx/Rx/DC Orders Clinical Impression: End-stage renal disease on hemodialysis, Anuria Prescriptions: No Action melatonin 5 mg tablet 10 mg PO HS PRN (Reason: Sleep) loratadine 10 mg capsule 10 mg PO DAILY PRN (Reason: allergy symptoms) (DME) handicap placcard See Rx Instructions .Route .MEDSUPPLY Qty: 1 0RF Rx Instructions: Dx: Debility Exp: 5 years tadalafil 20 mg tablet 20 mg PO DAILY PRN (Reason: sexual activity) hydroxyzine HCl 25 mg tablet 25 mg PO Q6 PRN (Reason: itch) Eliquis 5 mg tablet 5 mg PO BID Qty: 180 3RF midodrine 5 mg tablet 5 mg PO TID Qty: 270 3RF Rx Instructions: Hold for SBP more than 100 mmHg latanoprost 1 DROP bottle 1 drp EACH EYE QHS Dialyvite 800 0.8 mg tablet 1 tab PO DAILY trazodone 50 mg tablet 50 mg PO QHS benzonatate 100 mg capsule 100 mg PO TID PRN (Reason: cough) atorvastatin 40 mg tablet 40 mg PO DAILY pantoprazole 40 mg tablet,delayed release (DR/EC) 40 mg PO BID bumetanide 2 mg tablet 2 mg PO UD Qty: 90 3RF Rx Instructions: On the days not on dialysis, Sunday, Sunday, Sunday and Sunday cefdinir 300 mg capsule 300 mg PO BID Qty: 14 0RF carvedilol 12.5 mg tablet 12.5 mg PO BID metolazone 5 mg tablet 5 mg PO DAILY insulin glargine [Lantus Solostar U-100 Insulin] 100 unit/mL (3 mL) insulin pen subcut Primary Care Provider: Blade Teixeira Referrals: Blade Teixeira MD [Primary Care Provider] - Activity Restrictions/Additional Instructions: Follow up with your tyre fitter and urologist Print Language: Chinese Disposition Disposition: Home, Self Care Discharge Date/Time: 12/29/24 18:47
[2024-12-29 16:49] LABS: Absolute Neutrophil Count 3.7 X10^3/uL (2.0-7.7); Basophil# 0.05 X10^3/uL; Eosinophil# 0.13 X10^3/uL; Eosinophils% 2.5 % (0-5); Hematocrit 37.2 % (40-54); Hemoglobin 12.4 g/dL (13.0-16.5); Lymphocyte % 15.3 % (19-41); Mean Corp Hgb Conc 33.3 g/dL (32-36); Mean Corpuscular Hgb 32.1 pg (27.0-32.0); Mean Corpuscular Volume 96.4 fL (80-94); Monocyte# 0.55 X10^3/uL; Monocyte% 10.5 % (0-10); NRBC Flagged by Analyzer 0 % (0-5); Neutrophil % 70.5 % (47-70); Platelet Count 120 K/mm3 (150-450); RBC Distribution Width CV 16.4 % (11.6-14.6); RBC Distribution Width SD 57.9 fl (35.1-43.9); Red Blood Count 3.86 M/mm3 (4.6-6.2); White Blood Count 5.2 K/mm3 (4.4-11.0)
[2024-12-29 17:00] VITALS: BP 112/75; PULSE 78; RESP 16; TEMP 36.4; O2SAT 93
[2024-12-29 17:07] LABS: Anion Gap 15 (5-15); BUN 73 mg/dL (4-19); BUN/Creat Ratio 14.5 RATIO (10-20); Calcium,Total 10.2 mg/dL (7.6-11.0); Chloride 89 mmol/L (98-108); EST Glomerular Filtration Rate 12 (>60); Glucose 156 mg/dL (70-99); Potassium 3.9 mmol/L (3.3-5.1); Sodium Level 130 mmol/L (133-145)
[2024-12-29 17:14] VITALS: BP 118/62; PULSE 78; RESP 16; O2SAT 93
[2024-12-29 18:46] VITALS: BP 114/78; PULSE 75; RESP 16; O2SAT 94
== END 2024-12-29 18:47 | disposition home or self-care (01) ==
PROVIDERS: Emergency Provider Emergency Medicine; PCP Family Medicine; Visit Provider Emergency Medicine
DX: I13.2 Hypertensive heart and chronic kidney disease with heart failure and with stage 5 chronic kidney disease, or end stage renal disease (principal); N18.6 End stage renal disease; I50.21 Acute systolic (congestive) heart failure; E11.40 Type 2 diabetes mellitus with diabetic neuropathy, unspecified; E11.22 Type 2 diabetes mellitus with diabetic chronic kidney disease; I25.10 Atherosclerotic heart disease of native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 angina pectoris; R34 Anuria and oliguria; I25.2 Old myocardial infarction; Z99.2 Dependence on renal dialysis; Z87.891 Personal history of nicotine dependence; Z95.1 Presence of aortocoronary bypass graft
CPT/HCPCS: 74176; 80048; 85025; 99283

== ENCOUNTER 2025-01-06 18:05 | Emergency (ER) | payer MEDICARE, MEDICAID, SELFPAY ==
[2025-01-06 18:06] VITALS: BP 117/53; PULSE 77; RESP 18; TEMP 36.8; O2SAT 95; BMI 23.9
[2025-01-06 18:08] VITALS: BMI 23.6
--- NOTE | 2025-01-06 18:37 | EKG12_ITS ---
Test Reason : DYSRHYTHMIA Blood Pressure : */* mmHG Vent. Rate : 69 BPM Atrial Rate : * BPM P-R Int : * ms QRS Dur : 128 ms QT Int : 440 ms P-R-T Axes : * -70 115 degrees QTcB Int : 471 ms Atrial fibrillation with premature ventricular or aberrantly conducted complexes Left axis deviation Right bundle branch block Anteroseptal infarct , age undetermined T wave abnormality, consider lateral ischemia Abnormal ECG Confirmed by ABDI NIETO MD ([id number]), story editor DIONNA MANLEY ([id number]) on 01/12/2025 8:59:24 AM Referred By: Confirmed By: ABDI NIETO MD
--- NOTE | 2025-01-06 18:37 | RAD_ITS ---
PROCEDURE: HIP, UNI W/ PELVIS 2-3 VIEWS 01/06/2025 REASON FOR EXAM: INJURY TECHNIQUE: Three views of the left hip COMPARISON: None FINDINGS: Status post right hip arthroplasty with intact hardware. No acute fracture or dislocation. Diffuse osteopenia. Moderate left hip osteoarthritis. No suspicious lytic or blastic lesions. Severe atherosclerotic calcifications. RAD/HIP, UNI W/ Pelvis 2-3 Views IMPRESSION: No acute fracture or dislocation. Moderate left hip osteoarthritis. Reading Location: [facility]
[2025-01-06] MEDS: Ondansetron 4 MG/2 ML Vial IV (18:42)
[2025-01-06] MEDS: Morphine 4 MG/ML Syringe IV ×2 (18:42→20:19)
[2025-01-06 18:52] LABS: Absolute Lymphocyte Count 0.63 X10^3/uL (0.83-4.51); Absolute Neutrophil Count 6.8 X10^3/uL (2.0-7.7); Basophil# 0.04 X10^3/uL; Basophil% 0.5 % (0-1); Eosinophil# 0.09 X10^3/uL; Eosinophils% 1.1 % (0-5); Hematocrit 38.4 % (40-54); Hemoglobin 12.7 g/dL (13.0-16.5); Lymphocyte # 0.63 X10^3/ul (0.83-4.51); Lymphocyte % 7.5 % (19-41); Mean Corp Hgb Conc 33.1 g/dL (32-36); Mean Corpuscular Hgb 32.1 pg (27.0-32.0); Mean Platelet Vol. 10.2 fl (6.2-12.0); Monocyte# 0.74 X10^3/uL; Monocyte% 8.8 % (0-10); NRBC Flagged by Analyzer 0 % (0-5); Neutrophil % 81.1 % (47-70); Platelet Count 137 K/mm3 (150-450); RBC Distribution Width CV 15.9 % (11.6-14.6); RBC Distribution Width SD 56.9 fl (35.1-43.9); Red Blood Count 3.96 M/mm3 (4.6-6.2); White Blood Count 8.4 K/mm3 (4.4-11.0)
[2025-01-06 18:57] LABS: International Normalized Ratio 1.2; Prothrombin Time (Protime)PT. 15.5 SECONDS (11.7-14.9)
[2025-01-06 18:58] LABS: Partial Thromboplast Time 32.1 Seconds (24.1-36.2)
--- NOTE | 2025-01-06 19:20 | CT_ITS ---
PROCEDURE: PELVIS WITHOUT IV CONTRAST 01/06/2025 REASON FOR EXAM: INJURY TECHNIQUE: Pelvis CT without contrast. One or more dose reduction techniques were used (e.g., Automated exposure control, adjustment of the mA and/or kV according to patient size, use of iterative reconstruction technique). RADIATION DOSE SUMMARY: CTDlvol: 17.0 mGy DLP: 598 mGycm COMPARISON: CT abdomen and pelvis 12/29/2024, hip radiographs 01/06/2025 FINDINGS: Bones: Postoperative changes from right total hip arthroplasty slightly limits this evaluation. No hardware fracture or perihardware lucency. Ossifications adjacent to the right femoral neck are unchanged and likely postoperative. There is a minimally displaced fracture of the left sacrum (series 3, images 39-43). There is a questionable minimally displaced fracture at the left superior pubic ramus (series 3 image 74). No additional displaced fracture of the pelvis is identified. There is free fluid in the right pericolic gutter and pelvis. Extensive aortic atherosclerosis. Fluid and possibly bowel containing umbilical hernia, similar to prior. Hydroceles. CT/Pelvis without IV Contrast IMPRESSION: 1. Minimally displaced fracture of the left sacrum. 2. Questionable minimally displaced fracture of the left superior pubic ramus. 3. No evidence of right total hip arthroplasty hardware complication. 4. Moderate pelvic free fluid. Consider MRI to evaluate for additional nondisplaced fractures. Reading Location: [id number]
[2025-01-06 19:47] LABS: Anion Gap 14 (5-15); BUN 32 mg/dL (4-19); BUN/Creat Ratio 10.1 RATIO (10-20); Calcium,Total 9.7 mg/dL (7.6-11.0); Carbon Dioxide 28.6 mmol/L (21.0-32.0); Chloride 92 mmol/L (98-108); Creatinine, Serum 3.12 mg/dL (0.70-1.20); EST Glomerular Filtration Rate 21 (>60); Estimated Creatinine Clearance 23.72 ml/min (50-250); Glucose 126 mg/dL (70-99); Potassium 3.8 mmol/L (3.3-5.1); Sodium Level 134 mmol/L (133-145)
[2025-01-06 20:05] VITALS: BP 117/66; PULSE 78; O2SAT 98
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
--- NOTE | 2025-01-06 20:38 | CT_ITS ---
PROCEDURE: BRAIN/HEAD WITHOUT CONTRAST 01/06/2025 REASON FOR EXAM: HEAD INJURY TECHNIQUE: Head CT without intravenous contrast. Coronal and Sagittal reconstruction series were provided. One or more dose reduction techniques were used (e.g., Automated exposure control, adjustment of the mA and/or kV according to patient size, use of iterative reconstruction technique. RADIATION DOSE SUMMARY: CTDlvol: 45.0 mGy DLP: 897 mGycm COMPARISON: CT head 03/21/2019, MRI brain 02/19/2020 FINDINGS: Brain: No acute intracranial hemorrhage, mass effect, or midline shift. Low density in the periventricular white matter suggests chronic small vessel ischemic changes. Calcification along the falx is unchanged. CSF Spaces: Mild generalized cerebral atrophy. Sinuses/Mastoids: Complete opacification of the left mastoid sinus, and near- complete opacification of the right. The mastoid air cells are clear. Bones: No displaced calvarial fracture. Status post bilateral cataract extraction. Extensive calcification of the intracranial vasculature. Tonsilliths bilaterally. Soft tissue debris in the right external auditory canal, likely cerumen. CT/Brain/Head without Contrast IMPRESSION: No acute intracranial abnormality. Senescent changes. Reading Location: [facility]
[2025-01-06 22:00] VITALS: BP 117/68; PULSE 78; RESP 15; O2SAT 98
[2025-01-07] VITALS: BP 130/60; PULSE 80; RESP 16; O2SAT 99
[2025-01-07 02:00] VITALS: BP 121/65; PULSE 72; RESP 16; O2SAT 98
--- NOTE | 2025-01-07 02:36 | PCA ---
Addendum entered by Serina Warren 01/07/25 02:38: (TRANSFER LINE CALLED AT 0134 FOR HOSPITALIST CONSULT.) Original Note: [facility] HOSPITALIST CALLED TO CONSULT MD, AWAITING CALL FROM PT ORTHO TO CONSULT.
[2025-01-07 03:59] VITALS: BP 120/62; PULSE 71; RESP 16; O2SAT 99
--- NOTE | 2025-01-07 05:31 | PCA ---
PT ACCEPTED DR. JASS GTZ @ 8296 AM.
[2025-01-07 06:00] VITALS: BP 116/55; PULSE 70; RESP 16; O2SAT 100
[2025-01-07 08:00] VITALS: BP 125/77; PULSE 71; RESP 16; O2SAT 99
[2025-01-07 08:22] VITALS: BP 125/77; PULSE 71; RESP 16; TEMP 36.6; O2SAT 99
== END 2025-01-07 08:25 | disposition short-term general hospital (02) ==
PROVIDERS: Emergency Medicine; Emergency Provider Emergency Medicine; PCP Family Medicine; Visit Provider Emergency Medicine
DX: S32.10XA Unspecified fracture of sacrum, initial encounter for closed fracture (principal); I13.2 Hypertensive heart and chronic kidney disease with heart failure and with stage 5 chronic kidney disease, or end stage renal disease; N18.6 End stage renal disease; I50.21 Acute systolic (congestive) heart failure; I48.91 Unspecified atrial fibrillation; E11.40 Type 2 diabetes mellitus with diabetic neuropathy, unspecified; E11.22 Type 2 diabetes mellitus with diabetic chronic kidney disease; S09.90XA Unspecified injury of head, initial encounter; Z99.2 Dependence on renal dialysis; I25.10 Atherosclerotic heart disease of native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 angina pectoris; E78.00 Pure hypercholesterolemia, unspecified; Z79.01 Long term (current) use of anticoagulants; Z79.899 Other long term (current) drug therapy; Z87.891 Personal history of nicotine dependence; Z95.1 Presence of aortocoronary bypass graft; W05.0XXA Fall from non-moving wheelchair, initial encounter
CPT/HCPCS: 70450; 72192; 73502; 80048; 85025; 85610; 85730; 93005; 96374; 96375; 96376; 99283; A4216; J2405

== ENCOUNTER 2025-01-28 08:51 | Emergency (ER) | payer MEDICARE, MEDICAID, SELFPAY ==
[2025-01-28] VITALS (15 sets, daily range): BP systolic 85–156; BP diastolic 62–137; PULSE 83–95; RESP 16–18; TEMP 36.6–36.9; O2SAT 89–99; BMI 24.7
--- NOTE | 2025-01-28 09:06 | EX.ED.DYSGE1 ---
HPI History of Present Illness Chief Complaint: GI Bleed Detail of Chief Complaint: Reported GI bleed from nursing facility Informant: patient, spouse/S.O. and SNF Onset/Context/Timing Onset: - (Report that patient was noted to have blood in his stool) Context: - (Unknown) Timing: - (Unknown) Quality: Patient reports brown stool. Current Severity: Patient unaware Maximum Severity: patient unaware Worsened by: Patient with history of peptic ulcer disease per spouse and patient is on a Relieved by: Not applicable Associated Symptoms Associated Symptoms: Abdominal pain lower quadrants and distention Narrative Narrative: Patient is a 69-year-old male who presents because of blood in his stool. Patient is unaware if his stool is black or maroon. He believes it is dark. According to spouse he has not been his normal self since he fell and was diagnosed with multiple fractures. They believe this is due to the pain medicine he was prescribed. He was seen in December after fall and had multiple fractures. Dr. Martín Cui's note was reviewed and images were looked at. According the he is now at a nursing facility because of persistent pain and unable to perform activities of daily living. Patient reported to the nurse that she is thirsty. When I asked if he was thirsty or had dry mouth he responded no he then asked for water. Patient is a very unreliable informant. He does endorse bilateral lower quadrant pain. According to the he has had decreased urine output. He apparently is on hemodialysis. The urine output was not an issue until last month. Prior similar symptoms: Yes Recent Illness/Hospitalization: Yes [facility] Medical History Persistent atrial fibrillation Paroxysmal atrial fibrillation C. difficile diarrhea Anemia History of GI bleed Pure hypercholesterolemia Ischemic cardiomyopathy Essential hypertension Renal insufficiency Ankylosing spondylitis CAD (coronary artery disease) Overweight (BMI 25.0-29.9) Leg edema Leg swelling Acute systolic heart failure Bradycardia Biliary pleural effusion HTN (hypertension) Ventricular tachyarrhythmia Atherosclerosis of [place] coronary artery of [place] heart without angina pectoris Pulmonary HTN Cardiomyopathy Valvular heart disease NSTEMI (non-ST elevated myocardial infarction) CHF (congestive heart failure) Abscess of right foot Diabetes mellitus with neuropathy Gout DM2 (diabetes mellitus, type 2) Home Medications ?Medication ?Instructions ?Recorded ?Last Taken ?Type latanoprost 0.005 % eye drops 1 drp EACH EYE QHS 10/08/18 04/27/25 History melatonin 5 mg tablet 10 mg PO HS PRN Sleep 08/02/20 12/21/24 History loratadine 10 mg capsule 10 mg PO DAILY PRN allergy symptoms 10/24/21 12/10/24 History handicap placcard #1 ea 07/07/22 Unknown Rx hydroxyzine HCl 25 mg tablet 25 mg PO Q6 PRN itch 10/28/24 12/10/24 History tadalafil 20 mg tablet 20 mg PO DAILY PRN sexual activity 10/28/24 Unknown History atorvastatin 40 mg tablet 40 mg PO DAILY 12/11/24 12/21/24 History benzonatate 100 mg capsule 100 mg PO TID PRN cough 12/11/24 12/22/24 History pantoprazole 40 mg tablet,delayed 40 mg PO BID 12/11/24 12/22/24 History release trazodone 50 mg tablet 100 mg PO QHS 12/11/24 12/21/24 History vitamin B complex-vitamin C-folic 1 tab PO DAILY 12/11/24 12/22/24 History acid 0.8 mg tablet (Dialyvite 800) bumetanide 2 mg tablet 2 mg PO UD FLUID #90 tabs 12/13/24 12/22/24 Rx apixaban 5 mg tablet (Eliquis) 5 mg PO BID #180 tabs 12/26/24 01/28/25 Rx midodrine 5 mg tablet 5 mg PO TID #270 tabs 12/26/24 Unknown Rx carvedilol 12.5 mg tablet 12.5 mg PO BID 12/29/24 Unknown History insulin glargine 100 unit/mL (3 unit subcut 12/29/24 Unknown History mL) subcutaneous pen (Lantus Solostar U-100 Insulin) metolazone 5 mg tablet 5 mg PO DAILY 12/29/24 Unknown History hydrocodone-acetaminophen 5-325mg 1 tab PO Q6H PRN pain 30 days #60 01/16/25 Unknown Rx 5mg-325mg tabs Allergy/AdvReac Type Severity Reaction Status Date / Time pregabalin (From Lyrica) Allergy Angioedema Verified 01/06/25 18:09 Family History Father CAD (coronary artery disease) Mother CAD (coronary artery disease) Surgical History History of cataract extraction hx femur surgery Hx of arthroscopy History of open reduction and internal fixation (ORIF) procedure Hx of CABG (~04/12/17) Social History household members: spouse Smoking Status: Former smoker alcohol intake: never substance use type: does not use caffeine: No what type of physical activity do you participate in: none seatbelt use: always do you feel safe at home: Yes ROS ROS ED Review of Systems ROS Unobtainable: due to mental status Gastrointestinal Gastrointestinal: Reports abdominal pain EXAM Physical Exam Const Vital Signs: 01/28/25 08:52 01/28/25 09:56 01/28/25 09:57 Temperature 98.4 F 97.9 F Temperature Source Oral Temporal Pulse Rate 89 89 87 Respiratory Rate 16 16 16 Blood Pressure 110/62 106/68 92/66 Blood Pressure Mean 78 80 74 Pulse Ox 97 96 95 Oxygen Delivery Method Room Air Room Air Room Air 01/28/25 11:41 01/28/25 12:00 01/28/25 13:00 Temperature Temperature Source Pulse Rate 86 90 95 Respiratory Rate 17 17 17 Blood Pressure 156/137 H 105/73 112/79 Blood Pressure Mean 143 83 90 Pulse Ox 97 92 89 Oxygen Delivery Method Room Air 01/28/25 14:00 01/28/25 14:04 01/28/25 15:00 Temperature 98.3 F Temperature Source Oral Pulse Rate 90 90 90 Respiratory Rate 16 16 17 Blood Pressure 85/71 L 85/71 L 119/79 Blood Pressure Mean 75 75 92 Pulse Ox 97 97 99 Oxygen Delivery Method Room Air Room Air Room Air 01/28/25 15:20 Temperature 97.9 F Temperature Source Pulse Rate 90 Respiratory Rate 17 Blood Pressure 119/79 Blood Pressure Mean 92 Pulse Ox 99 Oxygen Delivery Method Positive well nourished, well developed and unkempt General Appearance ED: unkempt, well developed and NAD; Negative for cyanotic or diaphoretic HEENT Reports dry mucous membranes HEENT Narrative: Patient is hard of hearing. Patient wears glasses. Head is atraumatic no cephalic. Ears normal. Nares patent. Posterior pharynx is normal. Mouth ED: Yes dry mucous membranes Mouth: dry mucous membranes Eyes PERRL and EOMs intact bilaterally General Eye ED: Negative for pale conjunctiva or scleral icterus Neck no lymphadenopathy, supple and no JVD Neck Narrative: Trachea is midline. There is no dysphonia. Chest Wall Chest Narrative: Patient has a well healed median sternotomy scar. Resp normal respiratory effort and clear to auscultation bilaterally Cardio regular rate, S1 normal heart sound and no murmurs Rhythm: abnormal rhythm irregularly irregular GI GI Narrative: Abdomen is distended tympanitic with tenderness in the right upper quadrant as well as left lower quadrant. Bowel sounds are diminished. Rectal exam is remarkable for dark brown stool. It is not black or maroon. There is no obvious blood noted. Palpation: soft Narrative: External genitalia unremarkable. Back/Spine no CVA tenderness Extremity normal to inspection General Extremety ED: Negative for edema General Extremity: Negative for edema Neuro No oriented x3, CN's II-XII intact bilaterally and no sensory deficits noted Neuro Narrative: Patient is awake but not alert. Sensorium / Orientation: Negative for alert Psych Appearance: unkempt Mood & Affect: depressed Skin Skin Narrative: Patient is tanned. He has well-healed scars noted. There is no open wounds noted. MDM MDM MDM Narrative Medical decision making narrative: Stool was sent for occult blood since there is no obvious blood. Patient clinically appears dehydrated. He also has history of cardiomyopathy and heart failure. He received a 500 cc bolus for this reason. Since has had decreased urine output will obtain electrolyte panel to assess CO2 anion gap, electrolytes and renal function. CBC to assess H&H. Differential diagnosis right upper quadrant pain could be abdominal pain of unknown etiology, biliary colic, cholecystitis, lower lobe pneumonia and with predominant left lower quadrant abdominal pain need to consider possibility of diverticulitis, neoplasm. History & Record Review Additional record(s) reviewed:: Prior ED visit and Prior labs Lab Data Labs: Laboratory Results - last 24 hr 01/28/25 01/28/25 01/28/25 09:10 09:14 11:39 WBC 10.9 RBC 4.54 L Hgb 14.6 Hct 44.1 MCV 97.1 H MCH 32.2 H MCHC 33.1 RDW Std Deviation 65.1 H RDW Coeff of Yuri 19.5 H Plt Count 93 L MPV 11.3 Immature Gran % (Auto) 0.300 Neut % (Auto) 78.7 H Lymph % (Auto) 8.6 L [place] % (Auto) 11.0 H Eos % (Auto) 0.9 Baso % (Auto) 0.5 Absolute Neuts (auto) 8.6 H Absolute Lymphs (auto) 0.94 Nucleated RBC % 0.2 Platelet Estimate MOD DEC RBC Morphology NORM C+C Anisocytosis 1+ Ovalocytes 1+ Sodium 133 Potassium 4.2 Chloride 90 L Carbon Dioxide 28.4 Anion Gap 15 BUN 37 H Creatinine 4.45 H Estim Creat Clear Calc 16.63 L Est GFR (MDRD) Non-Af 14 L BUN/Creatinine Ratio 8.4 L Glucose 177 H Lactic Acid 2.1 H* 2.6 H* Calcium 9.2 Total Bilirubin 1.16 AST 39 H ALT 16 Alkaline Phosphatase 212 H Total Protein 6.7 Albumin 3.5 Globulin 3.2 Albumin/Globulin Ratio 1.1 Blood Type O NEGATIVE Antibody Screen POSITIVE 01/28/25 14:40 WBC RBC Hgb 14.3 Hct MCV MCH MCHC RDW Std Deviation RDW Coeff of Yuri Plt Count MPV Immature Gran % (Auto) Neut % (Auto) Lymph % (Auto) [place] % (Auto) Eos % (Auto) Baso % (Auto) Absolute Neuts (auto) Absolute Lymphs (auto) Nucleated RBC % Platelet Estimate RBC Morphology Anisocytosis Ovalocytes Sodium Potassium Chloride Carbon Dioxide Anion Gap BUN Creatinine Estim Creat Clear Calc Est GFR (MDRD) Non-Af BUN/Creatinine Ratio Glucose Lactic Acid Calcium Total Bilirubin AST ALT Alkaline Phosphatase Total Protein Albumin Globulin Albumin/Globulin Ratio Blood Type Antibody Screen Second lactate is 2.6. After reviewing his blood pressures I became aware that patient is hypotensive. In light of this and positive stool for blood will contact hospitalist for admission. He also received fluid bolus and I will type and screen him. Radiography Diagnostic Testing: There was also a new T9 compression fracture noted on the CT compared to prior. EKG Initial EKG: Interpretation: Atrial Fibrillation (Rate is 89. There is evidence of right bundle branch block and left anterior fascicular block. Cures duration 168 ms. QT duration 430 ms. [place] is to the left) Prior: Unchanged Management Discussion w/another healthcare provider: Hospitalist (Case discussed with Dr. Elizabeth Heart. Patient will be admitted. She would like to evaluate patient determine where to admit him to.) and Radiologist (Spoke to radiologist. Patient has bilateral pleural effusion unchanged in prior. He has ascites is unchanged from prior. Has cholelithiasis that was noted prior. He has got significant atherosclerotic disease. He has a new T9 fracture which is probably a delayed fracture from his fall with resu) Treatment and Re-Evaluation :: After reevaluation by Dr. Heart the fact that his pressure is improved CAT scan does not show any acute process plan is [facility] with outpatient workup by GI. 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 Heart. After reviewing notes since he complained of abdominal pain CT of the abdomen was ordered. Repeat H&H was ordered.) and Arranging Admission or Transfer Discharge Plan Triage Chief Complaint: GI Bleed ED Provider: Rafa Felder Dx/Rx/DC Orders Clinical Impression: Acute hypotension, Ischemic cardiomyopathy, Pure hypercholesterolemia, Diabetes mellitus with neuropathy, End-stage renal disease on hemodialysis, Acidosis, lactic, Fecal occult blood test positive, Anticoagulant long-term use, Altered mental status, Cholelithiasis, Abdominal ascites, Chronic bilateral pleural effusions, Compression fracture of T9 vertebra Instructions: FOBT, ED Fracture, Vertebral Compression Prescriptions: No Action melatonin 5 mg tablet 10 mg PO HS PRN (Reason: Sleep) loratadine 10 mg capsule 10 mg PO DAILY PRN (Reason: allergy symptoms) (DME) handicap placcard See Rx Instructions .Route .MEDSUPPLY Qty: 1 0RF Rx Instructions: Dx: Debility Exp: 5 years tadalafil 20 mg tablet 20 mg PO DAILY PRN (Reason: sexual activity) hydroxyzine HCl 25 mg tablet 25 mg PO Q6 PRN (Reason: itch) Eliquis 5 mg tablet 5 mg PO BID Qty: 180 3RF midodrine 5 mg tablet 5 mg PO TID Qty: 270 3RF Rx Instructions: Hold for SBP more than 100 mmHg latanoprost 1 DROP bottle 1 drp EACH EYE QHS Dialyvite 800 0.8 mg tablet 1 tab PO DAILY trazodone 50 mg tablet 100 mg PO QHS benzonatate 100 mg capsule 100 mg PO TID PRN (Reason: cough) atorvastatin 40 mg tablet 40 mg PO DAILY pantoprazole 40 mg tablet,delayed release (DR/EC) 40 mg PO BID bumetanide 2 mg tablet 2 mg PO UD Qty: 90 3RF Rx Instructions: On the days not on dialysis, Sunday, Sunday, Sunday and Sunday carvedilol 12.5 mg tablet 12.5 mg PO BID metolazone 5 mg tablet 5 mg PO DAILY insulin glargine [Lantus Solostar U-100 Insulin] 100 unit/mL (3 mL) insulin pen subcut hydrocodone-acetaminophen 5-325 mg tablet 1 tab PO Q6H PRN (Reason: pain) 30 Days Qty: 60 0RF Rx Instructions: 1 tab before hemodialysis Tue, Thurs, and Sat, 1 tab before therapy, 1 tab before straight cath, and every 6 hours as needed. Primary Care Provider: Blade Teixeira Referrals: West Paiz DO [Med Staff - Active Staff] - Keep Cipriano appointment Blade Teixeira MD [Primary Care Provider] - Activity Restrictions/Additional Instructions: Hold apixaban until seen and cleared by Dr. Paiz Print Language: Tunisian Disposition Disposition: Home, Self Care
[2025-01-28] MEDS: 0.9% Normal Saline (500mL Bag) 500 ML 1000 ML IV (09:27)
[2025-01-28 09:42] LABS: Absolute Lymphocyte Count 0.94 X10^3/uL (0.83-4.51); Absolute Neutrophil Count 8.6 X10^3/uL (2.0-7.7); Basophil# 0.05 X10^3/uL; Basophil% 0.5 % (0-1); Eosinophils% 0.9 % (0-5); Hematocrit 44.1 % (40-54); Hemoglobin 14.6 g/dL (13.0-16.5); Lymphocyte # 0.94 X10^3/ul (0.83-4.51); Lymphocyte % 8.6 % (19-41); Mean Corp Hgb Conc 33.1 g/dL (32-36); Mean Corpuscular Hgb 32.2 pg (27.0-32.0); Mean Corpuscular Volume 97.1 fL (80-94); Mean Platelet Vol. 11.3 fl (6.2-12.0); NRBC Flagged by Analyzer 0.2 % (0-5); Neutrophil # 8.61 X10^3/uL (2.7-7.7); Neutrophil % 78.7 % (47-70); POSITIVE COUNT YES; POSITIVE MORPHOLOGY YES; Platelet Count 93 K/mm3 (150-450); RBC Distribution Width CV 19.5 % (11.6-14.6); RBC Distribution Width SD 65.1 fl (35.1-43.9); Red Blood Count 4.54 M/mm3 (4.6-6.2); White Blood Count 10.9 K/mm3 (4.4-11.0)
[2025-01-28 09:43] LABS: Differential Indicated SCAN CRITERIA MET
[2025-01-28 10:01] LABS: ALB/GLOB Ratio 1.1 RATIO (0.9-2.4); AST(SGOT) 39 U/L (<=37); Alanine Aminotransfer ALT/SGPT 16 U/L (<=46); Albumin, Serum 3.5 g/dL (3.4-4.8); Alkaline Phosphatase 212 U/L (40-129); Anion Gap 15 (5-15); BUN 37 mg/dL (4-19); BUN/Creat Ratio 8.4 RATIO (10-20); Calcium,Total 9.2 mg/dL (7.6-11.0); Carbon Dioxide 28.4 mmol/L (21.0-32.0); Chloride 90 mmol/L (98-108); Creatinine, Serum 4.45 mg/dL (0.70-1.20); EST Glomerular Filtration Rate 14 (>60); Estimated Creatinine Clearance 16.63 ml/min (50-250); Globulin 3.2 g/dL (2.2-4.2); Glucose 177 mg/dL (70-99); Potassium 4.2 mmol/L (3.3-5.1); Protein, Total 6.7 g/dL (5.9-8.4); Sodium Level 133 mmol/L (133-145); Total Bilirubin 1.16 mg/dL (0.00-1.30)
[2025-01-28 10:09] LABS: Lactic Acid 2.1 mmol/L (0.0-2.0)
[2025-01-28 10:11] LABS: Platelet Estimate MOD DEC (ADEQ)
[2025-01-28 10:12] LABS: Anisocytosis 1+; Ovalocyte 1+; Red Cell Morphology NORM C+C NORMAL (NORM C&C)
--- NOTE | 2025-01-28 10:20 | ED.RN ---
PT PAPERWORK FROM L CAME WITH NOTED STATUS DNRCCA, AND PER . THIS NURSE CALLED TO SPEAK WITH NORMA XIAO AND SHE CONFIRMED PT IS DNRCCA. DETACHED FULL CODE PAPER THAT CAME WITH PACKET
[2025-01-28 13:27] LABS: Reflex Lactate? Y
[2025-01-28 13:57] LABS: Lactic Acid 2.6 mmol/L (0.0-2.0)
--- NOTE | 2025-01-28 14:22 | EKG12_ITS ---
Test Reason : O Blood Pressure : */* mmHG Vent. Rate : 89 BPM Atrial Rate : * BPM P-R Int : * ms QRS Dur : 168 ms QT Int : 430 ms P-R-T Axes : * -83 91 degrees QTcB Int : 523 ms Atrial fibrillation Right bundle branch block Left anterior fascicular block Bifascicular block T wave abnormality, consider lateral ischemia Abnormal ECG Confirmed by CALVIN RASMUSSEN, TITUS ([id number]), film editor supervisor BRYCE DIMAS ([id number]) on 02/02/2025 6:11:02 AM Referred By: RUBEN Confirmed By: TITUS SIMPSON MD
--- NOTE | 2025-01-28 14:34 | PCM.HP.STD ---
HPI - General HPI Narrative SHARON QUINONES, is a 69 M who presents [facility] Medical History Persistent atrial fibrillation Paroxysmal atrial fibrillation C. difficile diarrhea Anemia History of GI bleed Pure hypercholesterolemia Ischemic cardiomyopathy Essential hypertension Renal insufficiency Ankylosing spondylitis CAD (coronary artery disease) Overweight (BMI 25.0-29.9) Leg edema Leg swelling Acute systolic heart failure Bradycardia Biliary pleural effusion HTN (hypertension) Ventricular tachyarrhythmia Atherosclerosis of [place] coronary artery of [place] heart without angina pectoris Pulmonary HTN Cardiomyopathy Valvular heart disease NSTEMI (non-ST elevated myocardial infarction) CHF (congestive heart failure) Abscess of right foot Diabetes mellitus with neuropathy Gout DM2 (diabetes mellitus, type 2) Home Medications ?Medication ?Instructions ?Recorded ?Last Taken ?Type latanoprost 0.005 % eye drops 1 drp EACH EYE QHS 06/03/18 12/21/24 History melatonin 5 mg tablet 10 mg PO HS PRN Sleep 08/02/20 12/21/24 History loratadine 10 mg capsule 10 mg PO DAILY PRN allergy symptoms 10/24/21 12/10/24 History handicap placcard #1 ea 07/07/22 Unknown Rx hydroxyzine HCl 25 mg tablet 25 mg PO Q6 PRN itch 10/28/24 12/10/24 History tadalafil 20 mg tablet 20 mg PO DAILY PRN sexual activity 10/28/24 Unknown History atorvastatin 40 mg tablet 40 mg PO DAILY 12/11/24 12/21/24 History benzonatate 100 mg capsule 100 mg PO TID PRN cough 12/11/24 12/22/24 History pantoprazole 40 mg tablet,delayed 40 mg PO BID 12/11/24 12/22/24 History release trazodone 50 mg tablet 100 mg PO QHS 12/11/24 12/21/24 History vitamin B complex-vitamin C-folic 1 tab PO DAILY 12/11/24 12/22/24 History acid 0.8 mg tablet (Dialyvite 800) bumetanide 2 mg tablet 2 mg PO UD FLUID #90 tabs 12/13/24 12/22/24 Rx apixaban 5 mg tablet (Eliquis) 5 mg PO BID #180 tabs 12/26/24 01/28/25 Rx midodrine 5 mg tablet 5 mg PO TID #270 tabs 12/26/24 Unknown Rx carvedilol 12.5 mg tablet 12.5 mg PO BID 12/29/24 Unknown History insulin glargine 100 unit/mL (3 unit subcut 12/29/24 Unknown History mL) subcutaneous pen (Lantus Solostar U-100 Insulin) metolazone 5 mg tablet 5 mg PO DAILY 12/29/24 Unknown History hydrocodone-acetaminophen 5-325mg 1 tab PO Q6H PRN pain 30 days #60 01/16/25 Unknown Rx 5mg-325mg tabs Allergy/AdvReac Type Severity Reaction Status Date / Time pregabalin (From Lyrica) Allergy Angioedema Verified 01/06/25 18:09 Family History Father CAD (coronary artery disease) Mother CAD (coronary artery disease) Surgical History History of cataract extraction hx femur surgery Hx of arthroscopy History of open reduction and internal fixation (ORIF) procedure Hx of CABG (~04/12/17) Social History household members: spouse Smoking Status: Former smoker alcohol intake: never substance use type: does not use caffeine: No what type of physical activity do you participate in: none seatbelt use: always do you feel safe at home: Yes Vital Signs Vital Signs Vital Signs: 01/28/25 08:52 01/28/25 09:56 01/28/25 09:57 Temperature 98.4 F 97.9 F Temperature Source Oral Temporal Pulse Rate 89 89 87 Respiratory Rate 16 16 16 Blood Pressure 110/62 106/68 92/66 Blood Pressure Mean 78 80 74 Pulse Ox 97 96 95 Oxygen Delivery Method Room Air Room Air Room Air 01/28/25 11:41 01/28/25 12:00 01/28/25 13:00 Temperature Temperature Source Pulse Rate 86 90 95 Respiratory Rate 17 17 17 Blood Pressure 156/137 H 105/73 112/79 Blood Pressure Mean 143 83 90 Pulse Ox 97 92 89 Oxygen Delivery Method Room Air 01/28/25 14:00 01/28/25 14:04 Temperature 98.3 F Temperature Source Oral Pulse Rate 90 90 Respiratory Rate 16 16 Blood Pressure 85/71 L 85/71 L Blood Pressure Mean 75 75 Pulse Ox 97 97 Oxygen Delivery Method Room Air Room Air Weight Weight: 78.3 kg Body Mass Index (BMI) 24.7 Results Lab / Micro Data 01/28/25 09:14 01/28/25 09:14 Labs: Laboratory Results - last 24 hr 01/28/25 09:14: WBC 10.9, RBC 4.54 L, Hgb 14.6, Hct 44.1, MCV 97.1 H, MCH 32.2 H, MCHC 33.1, RDW Std Deviation 65.1 H, RDW Coeff of Yuri 19.5 H, Plt Count 93 L, MPV 11.3, Immature Gran % (Auto) 0.300, Neut % (Auto) 78.7 H, Lymph % (Auto) 8.6 L, [place] % (Auto) 11.0 H, Eos % (Auto) 0.9, Baso % (Auto) 0.5, Absolute Neuts (auto) 8.6 H, Absolute Lymphs (auto) 0.94, Nucleated RBC % 0.2, Platelet Estimate MOD DEC, RBC Morphology NORM C+C, Anisocytosis 1+, Ovalocytes 1+, Sodium 133, Potassium 4.2, Chloride 90 L, Carbon Dioxide 28.4, Anion Gap 15, BUN 37 H, Creatinine 4.45 H, Estim Creat Clear Calc 16.63 L, Est GFR (MDRD) Non-Af 14 L, BUN/Creatinine Ratio 8.4 L, Glucose 177 H, Lactic Acid 2.1 H*, Calcium 9.2, Total Bilirubin 1.16, AST 39 H, ALT 16, Alkaline Phosphatase 212 H, Total Protein 6.7, Albumin 3.5, Globulin 3.2, Albumin/Globulin Ratio 1.1 01/28/25 11:39: Lactic Acid 2.6 H* Micro: Microbiology 01/28/25 09:14 Stool Stool Occult Blood (CARLOS) - Final Occult Blood Positive
[2025-01-28] MEDS: 0.9% Normal Saline (1000mL) 1,000 ML 1000 ML IV (14:40)
--- NOTE | 2025-01-28 14:55 | CT_ITS ---
PROCEDURE: ABDOMEN/PELVIS WITHOUT CONT 01/28/2025 REASON FOR EXAM: ABDOMINIAL PAIN TECHNIQUE: Contiguous axial scans of 2.5 mm slice thicknesses. Sagittal and coronal reconstruction images were obtained. One or more dose reduction techniques were used (e.g., automated exposure control, adjustment of mA and/or kv according to patient size, use of iterative reconstruction technique). PATIENT PREPARATION: Per protocol ORAL CONTRAST TYPE: None. AMOUNT: 0 mL COMPARISON: CT abdomen without contrast dated 12/29/2024. FINDINGS: Lung bases: Moderate right pleural effusion is redemonstrated. Mild compressive atelectasis in the right lower lobe. Trace left pleural effusion. Areas of ground-glass opacification and interstitial thickening in the bilateral lungs. Marked cardiomegaly. Severe coronary artery calcifications. Liver: Normal in size. Parenchyma is normal in attenuation. No masses are identified. No biliary ductal dilatation. Gallbladder: Mild wall thickening. Tiny high attenuating foci most likely representing tiny gallstones layering dependently. Spleen: Stable splenomegaly. Pancreas: Unremarkable. Adrenals: No nodules. Kidneys: Unremarkable. Bladder: Urinary bladder wall thickening. Reproductive Organs: Unremarkable. Bowel: Diverticulosis without signs of diverticulitis. No signs of small-bowel obstruction. Fecal debris throughout the colon. Appendix: No definite signs of appendicitis. Lymph nodes: No suspicious adenopathy. Vasculature: Severe diffuse atherosclerotic calcific disease involving the visceral arteries in the aortoiliac arteries. Anterior abdominal wall: Small midline ventral hernia. Peritoneum / Retroperitoneum: Moderate ascites redemonstrated. Bones: Anterior wedging of the T9 vertebra. Right hip arthroplasty. Soft tissues: Signs of anasarca. Concern for bilateral gynecomastia. CT/Abdomen/Pelvis without Cont IMPRESSION: 1. No significant interval changes have occurred in the abdomen since the jayne ier study of 12/29/2024. 2. Cholelithiasis. 3. Moderate ascites. 4. Stable splenomegaly. 5. Concern for cystitis. 6. Diverticulosis without signs of diverticulitis. 7. Severe atherosclerotic calcific disease. 8. Small midline ventral hernia. 9. Anterior wedging of the T9 vertebra. 10. Bilateral pleural effusions, moderate right trace left. 11. Right hip arthroplasty. 12. Severe cardiac enlargement. Severe coronary artery calcifications. 13. Other nonacute findings detailed above. Reading Location: [place] [id number]
[2025-01-28 15:09] LABS: Hemoglobin 14.3 g/dL (13.0-16.5)
[2025-01-28] MEDS: HYDROcodone Bitartrate/Apap 5/325 Tablet PO (16:10)
--- NOTE | 2025-01-28 21:21 | CM.ED ---
Social Work SW spoke with patients who questioned if she had a right to use Medicare appeal to deny patients discharge back to [facility]. Medicare appeals were explained to along with reason why it is not applicable to ED visits. expressed understanding. also discussed palliative care and asked SW about what palliative could offer and if there would be any restrictions. SW answered all questions. No further needs identified at this time. Mercedes Jean, FLOW SPECIALIST, CRIB ATTENDANT
== END 2025-01-28 20:51 | disposition home or self-care (01) ==
PROVIDERS: Internal Medicine; Emergency Provider Emergency Medicine; PCP Family Medicine; Visit Provider Emergency Medicine
DX: I95.9 Hypotension, unspecified (principal); I13.2 Hypertensive heart and chronic kidney disease with heart failure and with stage 5 chronic kidney disease, or end stage renal disease; N18.6 End stage renal disease; I50.23 Acute on chronic systolic (congestive) heart failure; E11.40 Type 2 diabetes mellitus with diabetic neuropathy, unspecified; E11.22 Type 2 diabetes mellitus with diabetic chronic kidney disease; I25.5 Ischemic cardiomyopathy; I25.10 Atherosclerotic heart disease of native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 angina pectoris; R19.5 Other fecal abnormalities; E87.20 Acidosis, unspecified; E78.00 Pure hypercholesterolemia, unspecified; R41.82 Altered mental status, unspecified; Z99.2 Dependence on renal dialysis; I25.2 Old myocardial infarction; J90 Pleural effusion, not elsewhere classified; K80.20 Calculus of gallbladder without cholecystitis without obstruction; Z79.01 Long term (current) use of anticoagulants; Z79.899 Other long term (current) drug therapy; Z87.891 Personal history of nicotine dependence; Z95.1 Presence of aortocoronary bypass graft
CPT/HCPCS: 74176; 80053; 82274; 83605; 85018; 85025; 86850; 86870; 86900; 86901; 86905; 93005; A4216

== ENCOUNTER 2025-01-28 22:44 | Observation (INO) | payer MEDICARE, MEDICAID, SELFPAY ==
[2025-01-28 22:44] VITALS: PULSE 95; RESP 18; TEMP 36.6; O2SAT 95; BMI 25.2
[2025-01-28 22:56] VITALS: BP 75/54
--- NOTE | 2025-01-28 23:12 | PCM.HP.STD ---
HPI - General General Date of Admission: 01/28/25 Date of Service: 01/28/25 Chief Complaint: Back, BL hip pain, poor intake, SNF concern starting off into space, low BP. HPI Narrative The patient is a 69 y/o M w/ PMHx: Diabetes mellitus type II, HTN, HLD, HFrEF/ischemic cardiomyopathy, CAD, Pulmonary HTN, Ankylosing spondylitis, GERD w/ Hx GI bleed, Hx C. difficile diarrhea/colitis, ESRD on HD, Valvular Heart Disease, CAD status post CABG, Former tobacco use, initially presenting earlier in the day on 01/28/2025 secondary to history of concern for dark appearing stools with history of peptic ulcer disease with lower abdominal discomfort and distention complicated by recent history of significant falls and pelvic as well as vertebral fractures on a significant amount of pain medications with positive guaiac but stable hemoglobin with trend 13.4-> 14.6-> 14.[address] abdomen and pelvis with no significant acute findings with noted cholelithiasis, moderate ascites, stable splenomegaly, diverticulosis, small midline ventral hernia, anterior wedging of T9 vertebra, bilateral pleural effusions with moderate right and trace left, evidence of right hip arthroplasty, cardiac enlargement with initial hypotension therefore patient administered judicious IV fluids BP improved therefore patient was transition back to custodial facility unfortunately returning again later in the evening 01/28/2025 secondary to nursing facility stating that he was staring off into space for for a lengthy amount of time possibly 5 to 10 minutes in addition to possibly snoring although from description this is what was witnessed in the ED earlier and patient was alert during these episodes and aware of them and when discussed he noted his pain was high at those times in addition to concern for lower blood pressure as patient had not received his midodrine prompting skilled facility to return him to the ED for further evaluation. From discussion with residential and episode at the skilled facility with significantly longer and this was different than previously. Patient continues to note ongoing pain to the lumbar spine and bilateral hip regions. Nursing facility did not give him his midodrine per patient and report. Current workup upon arrival includes initially BP 75/54 with improvement following midodrine administration to 92/76-> 106/88, heart rate 89, respiratory rate 17, 96% room air, T97.8, CBC with WBC 11.4, hemoglobin stable at 14.8, platelet 93 stable and similar to previous with left shift. In the ED patient ministered [place] 1 tab x 1 as well as his missed midodrine dose 5 mg x 1. [facility] Medical History Persistent atrial fibrillation Paroxysmal atrial fibrillation C. difficile diarrhea Anemia History of GI bleed Pure hypercholesterolemia Ischemic cardiomyopathy Essential hypertension Renal insufficiency Ankylosing spondylitis CAD (coronary artery disease) Overweight (BMI 25.0-29.9) Leg edema Leg swelling Acute systolic heart failure Bradycardia Biliary pleural effusion HTN (hypertension) Ventricular tachyarrhythmia Atherosclerosis of [place] coronary artery of [place] heart without angina pectoris Pulmonary HTN Cardiomyopathy Valvular heart disease NSTEMI (non-ST elevated myocardial infarction) CHF (congestive heart failure) Abscess of right foot Diabetes mellitus with neuropathy Gout DM2 (diabetes mellitus, type 2) Home Medications ?Medication ?Instructions ?Recorded ?Last Taken ?Type latanoprost 0.005 % eye drops 1 drp EACH EYE QHS 06/03/18 12/21/24 History melatonin 5 mg tablet 10 mg PO HS PRN Sleep 08/02/20 12/21/24 History loratadine 10 mg capsule 10 mg PO DAILY allergy symptoms 10/24/21 12/10/24 History handicap placcard #1 ea 07/07/22 Unknown Rx hydroxyzine HCl 25 mg tablet 25 mg PO Q6 PRN itch 10/28/24 12/10/24 History tadalafil 20 mg tablet 20 mg PO DAILY PRN sexual activity 10/28/24 Unknown History atorvastatin 40 mg tablet 40 mg PO DAILY 12/11/24 12/21/24 History benzonatate 100 mg capsule 100 mg PO TID PRN cough 12/11/24 12/22/24 History pantoprazole 40 mg tablet,delayed 40 mg PO DAILY 12/11/24 12/22/24 History release trazodone 50 mg tablet 100 mg PO QHS 12/11/24 12/21/24 History vitamin B complex-vitamin C-folic 1 tab PO DAILY 12/11/24 12/22/24 History acid 0.8 mg tablet (Dialyvite 800) bumetanide 2 mg tablet 2 mg PO UD FLUID #90 tabs 12/13/24 12/22/24 Rx apixaban 5 mg tablet (Eliquis) 5 mg PO BID #180 tabs 12/26/24 01/28/25 Rx insulin glargine 100 unit/mL (3 unit subcut 12/29/24 Unknown History mL) subcutaneous pen (Lantus Solostar U-100 Insulin) metolazone 5 mg tablet 5 mg PO DAILY 12/29/24 Unknown History hydrocodone-acetaminophen 5-325mg 1 tab PO Q6H PRN pain 30 days #60 01/16/25 Unknown Rx 5mg-325mg tabs amino acids-protein hydrolysate 11 30 ml PO BID 01/28/25 Unknown History gram-80 kcal/30 mL oral liquid (Pro-Stat Max) honey 80 % topical gel ([place] 1 applic topical DAILY 01/28/25 Unknown History Honey) midodrine 5 mg tablet 5 mg PO 1600 01/28/25 Unknown History midodrine 5 mg tablet 7.5 mg PO 0500,1200 01/28/25 Unknown History nut.tx.imp.renal fxn,lac-reduc 240 ml PO DAILY 01/28/25 Unknown History 0.08 gram-1.8 kcal/mL oral liquid (Nepro Carb Steady) sevelamer carbonate 800 mg tablet 1,600 mg PO TID 01/28/25 Unknown History vitamin B complex-vitamin C-folic 1 tab PO DAILY 01/28/25 Unknown History acid 0.8 mg tablet (Dialyvite 800) Allergy/AdvReac Type Severity Reaction Status Date / Time pregabalin (From Lyrica) Allergy Angioedema Verified 01/28/25 22:45 Family History Father CAD (coronary artery disease) Mother CAD (coronary artery disease) Surgical History History of cataract extraction hx femur surgery Hx of arthroscopy History of open reduction and internal fixation (ORIF) procedure Hx of CABG (~04/12/17) Social History household members: spouse Smoking Status: Former smoker alcohol intake: never substance use type: does not use caffeine: No what type of physical activity do you participate in: none seatbelt use: always do you feel safe at home: Yes ROS ROS Narrative Admission Review of Systems: CONSTITUTIONAL: No weight loss, fever, chills, + weakness or fatigue. HEENT: Eyes: No visual loss, blurred vision, double vision or yellow sclerae. Ears, Nose, Throat: No hearing loss, sneezing. SKIN: No rash or itching, lesions except + decubitus skin breakdown, occasional ecchymoses, abrasion CARDIOVASCULAR: + Chronic distal edema, orthopnea. No chest pain, chest pressure or chest discomfort, palpitations, syncopal events. RESPIRATORY: + Chronic dyspnea worse with exertion. No current cough or productive sputum nor any wheezing, hemoptysis. GASTROINTESTINAL: + Anorexia/lack of appetite, intermittent episodes of nausea, reported dark stool at facility with recent positive ED guaiac but stable hemoglobin. No emesis, diarrhea, abdominal pain, melena, BRBPR. GENITOURINARY: + Decreased urine output. No dysuria, frequency, urgency or retention. NEUROLOGICAL: + Reported episodes of staring off into space with skilled facility concern for possible seizure. No headache, dizziness, syncope, paralysis, ataxia, numbness or tingling in the extremities, focal weakness, change in bowel or bladder control, seizure. MUSCULOSKELETAL: + muscle, back pain, joint pain or stiffness. HEMATOLOGIC: + Chronic anemia, easy bleeding/bruising, as noted also concern for current GI bleed component. LYMPHATICS: No enlarged nodes. No history of splenectomy. PSYCHIATRIC: No history of depression or anxiety. ENDOCRINOLOGIC: No marked history of recent sweating, cold or heat intolerance. No polyuria or polydipsia. ALLERGIES: + History of angioedema, allergic rhinitis. Vital Signs Vital Signs Vital Signs: 01/28/25 22:44 01/28/25 22:44 01/28/25 22:56 Temperature 97.8 F Temperature Source Oral Pulse Rate 95 Respiratory Rate 18 Respiratory Effort Normal Non-Labored Respiratory Pattern Normal Blood Pressure 75/54 L Blood Pressure Mean 61 Pulse Ox 95 Oxygen Delivery Method Room Air Weight Weight: 175 lb 7.807 oz Body Mass Index (BMI) 25.2 Physical Exam Narrative Physical Examination: General: Awake, alert, oriented to self, place, talking with family, interactive, currently cooperative, seated upright in ED, fatigued appearing, in general unwell comorbidity good appearing patient. Skin: Normal color, normal turgor, no icterus, no cyanosis except occasional stage ecchymoses, abrasion, skin breakdown. HEENT: AT/NC, EOMI, PERRLA, moderately dry MM, no carotid bruits or JVD noted. Lungs: CTA bilaterally, moderate effort, mild decrease BL bases, no rales, ronchi or wheezing. Heart: Rate controlled, regular; no gallop, rub audible. Abdomen: Soft, currently mild generalized discomfort with palpation, mildly distended and tympanitic, hyperactive BS, no appreciated HSM. Extremities: No cyanosis, no clubbing, ankle distal nieto edema. Neurological: Patient awake, alert, oriented as noted, cognitive function intact; pupils equally reactive to light and accommodation, cranial nerves gross normal, moving all 4 extremities however very limited secondary to bilateral hip and lower back pain, strength severely globally decreased. Psychiatric: Affect appears fatigued, uncomfortable, no acute evidence of depressive or anxiety feelings. Results Lab / Micro Data 01/28/25 22:59 Assessment & Plan Assessment/Plan (1) Altered mental status: PLAN: Plan The patient is a 69 y/o M w/ PMHx: Diabetes mellitus type II, HTN, HLD, HFrEF/ischemic cardiomyopathy, CAD, Pulmonary HTN, Ankylosing spondylitis, GERD w/ Hx GI bleed, Hx C. difficile diarrhea/colitis, ESRD on HD, Valvular Heart Disease, CAD status post CABG, Former tobacco use, initially presenting earlier in the day on 01/28/2025 secondary to history of concern for dark appearing stools with history of peptic ulcer disease with lower abdominal discomfort and distention complicated by recent history of significant falls and pelvic as well as vertebral fractures on a significant amount of pain medications with positive guaiac but stable hemoglobin discharged back to SNF who re-presents on the same day later in the evening secondary to nursing facility stating that he was staring off into space for for a lengthy amount of time possibly 5 to 10 minutes in addition to possibly snoring with concern for possible seizure. #1. Concern for Possible New-onset seizure: Possible seizure witnessed at SNF with prolonged staring for ~ 5-10 minutes and possible UE movement but uncertain. Patient reportedly once more alert back to baseline immediately. Improved mental status in the emergency room. Will admit to PCU, will obtain UTox, Mag, TSH, maintain on telemetry in PCU on seizure precautions, obtain EEG, obtain brain MRI if able to tolerate. Will request Neurology consultation. PRN ativan IV for seizure activity. #2. Suspected Chronic GI bleed: Patient evaluated earlier in the ED and did have a positive stool guaiac at that time however his hemoglobin x 3 remained stable, repeat hemoglobin upon current presentation again remained stable with plan follow-up outpatient with gastroenterology, will continue to hold NOAC and maintain on PPI. #3. Lower abdominal pain with recent episodes of occasional nausea, poor intake and occasional rare emesis: CT abdomen pelvis with no acute findings during recent presentation in the ED, will until clinically improving maintain on clear liquids with IV PPI and will have antiemetics, will continue chronic pain regimen with breakthrough regimen if necessary however given chronically low blood pressure with orthostasis on midodrine will need to be cautious. #4. Intractable back, BL hip pain: 01/06/2025 CT pelvis with minimally displaced fracture of the left sacrum, questionable minimally displaced fracture of the left superior pubic rami, CT 01/26/2025 with noted anterior wedging of T9 vertebrae possibly from his previous fall but uncertain. Will maintain on fall precautions, offload as able, PT/OT/CM consulted. Given severity of pain and fall history may need to consider more aggressive imaging if not able to control pain. Will have continued norco and breakthrough fentanyl low dose. #5. Chronic Orthostasis/Hypotension with intermittent worsening Hypotension, unclear if pain regimen/pain related: Patient presented twice now with lower blood pressures improved with midodrine, repeat hemoglobin has remained stable thus no concern for bleed as etiology, certainly some concern for infection, will request procalcitonin to be cautious as well as blood culture and to request a formal chest x-ray as there are findings on the basis of the CT initially. Will continue midodrine at this time and judicious fluids. #6. HFrEF/ischemic cardiomyopathy: 12/11/2024 echocardiogram with LV EF 25%, normal LV size, moderately severe segmental systolic dysfunction, PASP 60 mmHg, moderate concentric LVH. A holding NOAC given bleeding concerns as noted, continue statin, not on beta-rufus therapy but in the past had previously been on Coreg, not on VANESSA inhibitor/ARB with underlying renal disease, holding bumetanide. Judiciously hydrating given presentation, monitor for overload. #7. ESRD on HD: Nephrology consulted, judiciously hydrating given concurrent HF/reduced EF history, will continue sevelamer and nephro supplementation. #8. CAD: Status post CABG (CARTY to LAD, SVG to OM system, and SVG to PDA in March 2017 at [facility]), holding NOAC given bleeding concerns although hemoglobin is currently remained stable, continue statin, not on beta-rufus therapy but in the past had been on Coreg, also not on VANESSA inhibitor or ARB. #9. Diabetes mellitus type II: Holding oral regimen, given current presentation with clear liquids only will maintain on every 6 hour accu checks w/ ISS. #10. PAF: Currently in atrial fibrillation, not on rate or rhythm agent, holding NOAC as noted. #11. Pulmonary hypertension: Complicates presentation, per records appears he is only on tadalafil and is listed as needed but clarifying to be certain. #12. Valvular heart disease: 12/11/2024 echocardiogram with LV EF 25%, normal LV size, moderately severe segmental systolic dysfunction, PASP 60 mmHg, moderate concentric LVH. #13. Hypertension: Given patient presentation with worsened BP on midodrine for orthostasis will hold regimen, primarily diuretics given HF concurrent history. #14. Hyperlipidemia: Will continue patient on statin therapy. #15. Former tobacco use: Encourage continued tobacco cessation. #16. Allergic rhinitis: Continue patient home loratadine regimen. #17. DVT prophylaxis: Holdng NOAC given + stool guiac as noted, SCDs. #18. CODE status: Patient HCPOA and living will are not in place but his who is present would be his medical decision-maker if necessary he notes. Discussed CODE status at length including difference between FULL code, DNR-CCA and DNR-CC status. Following discussions about the differences in these status, requested DNR-CCA, no intubation status. Patient had been DNR-CC at the SNF but discussed the differences again in the types of statuses and she opted to continue with DNR-CCA, no intubation. Also, discussed the difference between hospice and palliative given patient ongoing pain and debility. Advanced Care Planning Face to Face Time: 16 minutes. Charges/Coding Visit Charges Inpatient E&M: 30044 Init Hosp L3 Procedures Hospitalists Procedures: 36859 Advncd Care Plan 30 Min
--- NOTE | 2025-01-28 23:17 | EX.ED.DYSGE1 ---
HPI History of Present Illness Chief Complaint: General Illness Informant: patient, spouse/S.O., family and EMS Narrative Narrative: Patient is a 69-year-old male with past medical history of end-stage renal disease on dialysis as well as chronic hypotension taking midodrine 3 times a day. He was seen in the ER earlier today and underwent an extensive workup. At that time decision was made to discharge him to the assisted with outpatient follow-up. Nursing reports that after he arrived there he had a staring off episode which concerned them and therefore he was sent back to the ER for evaluation. Family states that throughout the day today he has had bouts where that he will be talking and then suddenly stare off into space and they will notice shaking of his right arm. They state this will occur for 30 seconds to a few minutes and then resolve. Family states when it resolves he is still not truly awake or alert but a few minutes later is at his baseline mental status. They state that there has been no history of seizure disorder but with her current events have concern for this and therefore he was sent back to the ER for evaluation [facility] Medical History Persistent atrial fibrillation Paroxysmal atrial fibrillation C. difficile diarrhea Anemia History of GI bleed Pure hypercholesterolemia Ischemic cardiomyopathy Essential hypertension Renal insufficiency Ankylosing spondylitis CAD (coronary artery disease) Overweight (BMI 25.0-29.9) Leg edema Leg swelling Acute systolic heart failure Bradycardia Biliary pleural effusion HTN (hypertension) Ventricular tachyarrhythmia Atherosclerosis of [place] coronary artery of [place] heart without angina pectoris Pulmonary HTN Cardiomyopathy Valvular heart disease NSTEMI (non-ST elevated myocardial infarction) CHF (congestive heart failure) Abscess of right foot Diabetes mellitus with neuropathy Gout DM2 (diabetes mellitus, type 2) Home Medications ?Medication ?Instructions ?Recorded ?Last Taken ?Type latanoprost 0.005 % eye drops 1 drp EACH EYE QHS 06/03/18 12/21/24 History melatonin 5 mg tablet 10 mg PO HS PRN Sleep 08/02/20 12/21/24 History loratadine 10 mg capsule 10 mg PO DAILY allergy symptoms 10/24/21 12/10/24 History handicap placcard #1 ea 07/07/22 Unknown Rx hydroxyzine HCl 25 mg tablet 25 mg PO Q6 PRN itch 10/28/24 12/10/24 History tadalafil 20 mg tablet 20 mg PO DAILY PRN sexual activity 10/28/24 Unknown History atorvastatin 40 mg tablet 40 mg PO DAILY 12/11/24 12/21/24 History benzonatate 100 mg capsule 100 mg PO TID PRN cough 12/11/24 12/22/24 History pantoprazole 40 mg tablet,delayed 40 mg PO DAILY 12/11/24 12/22/24 History release trazodone 50 mg tablet 100 mg PO QHS 12/11/24 12/21/24 History vitamin B complex-vitamin C-folic 1 tab PO DAILY 12/11/24 12/22/24 History acid 0.8 mg tablet (Dialyvite 800) bumetanide 2 mg tablet 2 mg PO UD FLUID #90 tabs 12/13/24 12/22/24 Rx apixaban 5 mg tablet (Eliquis) 5 mg PO BID #180 tabs 12/26/24 01/28/25 Rx insulin glargine 100 unit/mL (3 unit subcut 12/29/24 Unknown History mL) subcutaneous pen (Lantus Solostar U-100 Insulin) metolazone 5 mg tablet 5 mg PO DAILY 12/29/24 Unknown History hydrocodone-acetaminophen 5-325mg 1 tab PO Q6H PRN pain 30 days #60 01/16/25 Unknown Rx 5mg-325mg tabs amino acids-protein hydrolysate 11 30 ml PO BID 01/28/25 Unknown History gram-80 kcal/30 mL oral liquid (Pro-Stat Max) honey 80 % topical gel ([place] 1 applic topical DAILY 01/28/25 Unknown History Honey) midodrine 5 mg tablet 5 mg PO 1600 01/28/25 Unknown History midodrine 5 mg tablet 7.5 mg PO 0500,1200 01/28/25 Unknown History nut.tx.imp.renal fxn,lac-reduc 240 ml PO DAILY 01/28/25 Unknown History 0.08 gram-1.8 kcal/mL oral liquid (Nepro Carb Steady) sevelamer carbonate 800 mg tablet 1,600 mg PO TID 01/28/25 Unknown History vitamin B complex-vitamin C-folic 1 tab PO DAILY 01/28/25 Unknown History acid 0.8 mg tablet (Dialyvite 800) Allergy/AdvReac Type Severity Reaction Status Date / Time pregabalin (From Lyrica) Allergy Angioedema Verified 01/28/25 22:45 Family History Father CAD (coronary artery disease) Mother CAD (coronary artery disease) Surgical History History of cataract extraction hx femur surgery Hx of arthroscopy History of open reduction and internal fixation (ORIF) procedure Hx of CABG (~04/12/17) Social History household members: spouse Smoking Status: Former smoker alcohol intake: never substance use type: does not use caffeine: No what type of physical activity do you participate in: none seatbelt use: always do you feel safe at home: Yes ROS ROS ED Constitutional Constitutional ED: Denies chills or fever(s) Eyes Eyes: Denies change in vision ENT ENT ED: Denies rhinorrhea or sore throat Cardiovascular Cardiovascular: Denies chest pain or racing heartbeat Respiratory/Chest Respiratory/Chest: Denies cough Gastrointestinal Gastrointestinal: Reports abdominal pain and melena; Denies nausea or vomiting Musculoskeletal Musculoskeletal: Reports back pain Integumentary Denies rash Neurologic Neurologic: Reports other Details: Positive intermittent altered mental status Hematologic/Lymphatic Hematologic/Lymphatic: Reports easy bleeding and easy bruising EXAM Physical Exam Const Vital Signs: 01/28/25 22:44 01/28/25 22:44 01/28/25 22:56 Temperature 97.8 F Temperature Source Oral Pulse Rate 95 Respiratory Rate 18 Respiratory Effort Normal Non-Labored Respiratory Pattern Normal Blood Pressure 75/54 L Blood Pressure Mean 61 Pulse Ox 95 Oxygen Delivery Method Room Air Positive well nourished and well developed General Appearance ED: well developed and pallor HEENT Reports dry mucous membranes HEENT Narrative: Normocephalic atraumatic Mucous membranes are mildly dry and tacky No signs of infection noted in the posterior pharynx Mouth ED: Yes dry mucous membranes Mouth: dry mucous membranes Eyes PERRL and EOMs intact bilaterally General Eye ED: Negative for scleral icterus Neck supple Neck Narrative: No nuchal rigidity or meningeal signs Resp normal respiratory effort and clear to auscultation bilaterally Resp Narrative: Breath sounds are diminished throughout but overall clear to auscultation without signs of respiratory distress Cardio regular rate Rate: other Other Details: Irregularly irregular rhythm with regular rate consistent with history of persistent atrial fibrillation GI normal to inspection, nondistended, normoactive bowel sounds, non-tender, non-distended and no masses GI Narrative: No distention noted No voluntary guarding or rigidity or pulsatile mass Auscultation: normoactive bowel sounds Palpation: soft Extremity Extremity Narrative: Fistula is present in the left upper extremity with palpable thrill and good bruit Neuro oriented x3, CN's II-XII intact bilaterally and no sensory deficits noted Neuro Narrative: GCS of 15 Patient is awake and alert to person place and time without focal neurologic deficit Sensorium / Orientation: alert Psych mental status grossly normal Skin No skin turgor normal Skin Narrative: There is pallor noted but capillary refill is less than 3 seconds Skin turgor is increased consistent with dehydration General Skin Exam: pallor; Negative for jaundice MDM MDM MDM Narrative Medical decision making narrative: Patient arrived to the ER awake and alert at his baseline mental status. His blood pressure was low at 75/54 but this is chronic for him and he has not received his nighttime midodrine. Family reports that the main reason for returning is because of the potential seizure activity with him staring off into space and right arm shaking. The patient's previous laboratory studies and imaging from the ER was reviewed. At this time he is hypotensive but this is chronic for him and his blood pressure is trending up. With the recent visit showing signs concerning for GI bleed there was concern that he could have progressed to acute blood loss anemia so repeat CBC was obtained. This showed a stable H&H at 15. I do not feel the need for any type of repeat imaging as his abdomen is soft and nontender and his neurologic exam is normal at this time. The case was discussed with the hospitalist because of the new symptoms of potential seizure activity and with his chronic medical conditions and now worsening symptoms it was agreed upon that his safest option is admission for continued monitoring. Plan of care was discussed with patient and family and they are agreeable to it and therefore he will be admitted for continued evaluation and treatment History & Record Review Discussion w/independent historian: EMS personnel, Patient, Family and Significant other Additional record(s) reviewed:: Prior ED visit Lab Data Attestation: I reviewed the patient's lab results. Labs: Laboratory Results - last 24 hr 01/28/25 22:59 WBC 11.4 H RBC 4.63 Hgb 14.8 Hct 45.2 MCV 97.6 H MCH 32.0 MCHC 32.7 RDW Std Deviation 66.8 H RDW Coeff of Yuri 19.8 H Plt Count 93 L MPV 12.2 H Immature Gran % (Auto) 0.500 Neut % (Auto) 74.7 H Lymph % (Auto) 11.4 L [place] % (Auto) 12.6 H Eos % (Auto) 0.4 Baso % (Auto) 0.4 Absolute Neuts (auto) 8.5 H Absolute Lymphs (auto) 1.30 Nucleated RBC % 0.3 Differential Comment SCANNED Platelet Estimate MOD DEC Polychromasia RARE Anisocytosis 3+ Macrocytosis 2+ Ovalocytes RARE Piyush Cells 1+ Phosphorus 5.2 H Magnesium 2.4 H Procalcitonin 1.83 H Management Discussion w/another healthcare provider: Hospitalist Discharge Plan Dx/Rx/DC Orders Clinical Impression: DM2 (diabetes mellitus, type 2), End-stage renal disease on hemodialysis, Persistent atrial fibrillation, 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
[2025-01-28 23:20] VITALS: BP 92/76; PULSE 84; RESP 18; TEMP 36.6; O2SAT 100
--- OUTSIDE RECORDS SUMMARY | 2025-01-28 23:32 | XMS RPT_ITS | CCD ---
Author Organization [facility] Care Team Providers Care Injection Molding Operator Name Role Phone Roof INLAYER SILVER, Nick Hernandez Unavailable Pilar WEINBERG, Jocelin Gonsalez Unavailable Unavailable Lee Chacon MD Unavailable Joel WEINBERG, Florencia Delcid Unavailable [phone] ARNAUD MILLER Unavailable Unavailable PHYSICIAN, NONE Unavailable Unavailable OSMAN COOPER Unavailable Unavailable PHYSICIAN, NONE Unavailable Unavailable STACI BRUNO Unavailable Unavailable PHYSICIAN, NONE Unavailable Unavailable Sudhir, Jensen L Unavailable Unavailable DavisMonty Unavailable Unavailable Sudhir, Jensen L Unavailable Unavailable DavisMonty Unavailable Unavailable Sudhir, Jensen L Unavailable Unavailable Dewayne Daugherty Unavailable Unavailable Sudhir, Jensen L Unavailable Unavailable DavisMonty Unavailable Unavailable Sudhir, Jensen L Unavailable Unavailable Dewayne Daugherty Unavailable Unavailable Sudhir, Jensen L Unavailable Unavailable Sudhir, Jensen L Unavailable Unavailable Sudhir, Jensen L Unavailable Unavailable Sudhir, Jensen L Unavailable Unavailable Sudhir, Jensen L Unavailable Unavailable No Family Physician given Unavailable Unavai lable Sudhir, Jensen L Unavailable Unavailable Sudhir, Jensen L Unavailable Unavailable DavisMonty Unavailable Unavailable Rigoberto Gould Primary Care Provider Rigoberto Gould MD Primary Care Provider Lee Chacon Unavailable Aditya Davis PA-C Primary Care Provider Rigoberto Gould MD Unavailable Rigoberto Gould MD Primary Care Provider OUMOU HAYES Referring Unavailable Samra SMITH Attending Unavailable RIGOBERTO GOULD Primary Care Unavailable Lee Chacon Unavailable Aditya Davis PA-C Primary Care Provider Rigoberto Gould MD Unavailable Lee Chacon Unavailable Rigoberto Gould MD Unavailable Rigoberto Gould MD Primary Care Provider Aditya Davis PA-C Primary Care Provider RAMÓN BYRD Admitting Unavailable RAMÓN BYRD Attending Unavailable RIGOBERTO GOULD Primary Care Unavailable ELIDIA LOREDO Consulting Unavaila ble Lee Chacon MD Unavailable Rigoberto Gould MD Primary Care Provider Haagen SQL TECH.GUN FERTILIZER, Cristina Unavailable Suppan SQL TECH.GUN FERTILIZER, Alexus A Unavailable Suppan SQL TECH.GUN FERTILIZER, Alexus A Unavailable Suppan SQL TECH.GUN FERTILIZER, Alexus A Unavailable Suppan SQL TECH.GUN FERTILIZER, Alexus A Unavailable [phone] Dr. Rigoberto Gould MD Primary Care Provider Dr. Rigoberto Gould MD Referring Provider Dr. Jensen Claire MD Attending Provider Dr. Rafa Felder MD Emergency Provider Darwin RASMUSSEN, Dr. Mary Jo Delcid Admit Provider Darwin RASMUSSEN, Dr. Mary Jo Delcid Attending Provider Darwin RASMUSSEN, Dr. Mary Jo Delcid Other Provider Renetta RASMUSSEN, Dr. Peace Other Provider Lauro RASMUSSEN, Dr. Patino Attending Provider Darwin RASMUSSEN, Dr. Mary Jo Delcid Attending Provider Lauro RASMUSSEN, Dr. Patino Other Provider Mayra RASMSUSEN, Dr. Valdez Attending Provider Ivan RASMUSSEN, Dr. Murguia Primary Care Provider Ivan RASMUSSEN, Dr. Murguia Referring Provider Alethea RASMUSSEN, Dr. Solis Attending Provider Bradford RASMUSSEN, Dr. Craig Emergency Provider Darwin RASMUSSEN, Dr. Mary Jo Delcid Admit Provider Darwin RASMUSSEN, Dr. Mary Jo Delcid Other Provider Renetta RASMUSSEN, Dr. Peace Other Provider Lauro RASMUSSEN, Dr. Patino Attending Provider Darwin RASMUSSEN, Dr. Mary Jo Delcid Attending Provider Lauro RASMUSSEN, Dr. Patino Other Provider Mayra RASMUSSEN, Dr. Valdez Attending Provider Dr. Nicho Nelson DO Attending Provider Dr. Nicho Nelson DO Emergency Provider Florencia Maier Attending Provider Dr. Ra Aaron DO Attending Provider Dr. Ra Aaron DO Emergency Provider IVAN, RIGOBERTO Hendrix Primary Care Unavailable NUPUR DE LA ROSA Referring Unavailable IVAN, RIGOBERTO Hendrix Primary Care Unavailable NUPUR DE LA ROSA Referring Unavailable IVAN, RIGOBERTO Hendrix Primary Care Unavailable NUPUR DE LA ROSA Referring Unavailable IVAN, RIGOBERTO Hendrix Primary Care Unavailable PROVIDER, UNKNOWN Referring Unavailable IVAN, RIGOBERTO Hendrix Primary Care Unavailable PROVIDER, UNKNOWN Referring Unavailable IVAN, RIGOBERTO Hendrix Primary Care Unavailable IVAN, RIGOBERTO Hendrix Primary Care Unavailable NUPUR DE LA ROSA Referring Unavailable PROVIDER, UNKNOWN Referring Unavailable IVAN, RIGOBERTO Hendrix Primary Care Unavailable PROVIDER, UNKNOWN Referring Unavailable IVAN, RIGOBERTO Hendrix Primary Care Unavailable NUPUR DE LA ROSA E Referring Unavailable IVAN, RIGOBERTO Hendrix Primary Care Unavailable PROVIDER, UNKNOWN Referring Unavailable IVAN, RIGOBERTO Hendrix Primary Care Unavailable EVARISTO DAS Admitting UnavailEVARISTO Arce Attending UnavailMARTÍN Tatum Referring Unavailable IVAN, RIGOBERTO J Primary Care Unavailable SCOTT SAUCEDO Consulting UnavailRa Remy Attending Unavailable Ivan, Rigoberto Primary Care Unavailable Nicho Nelson Attending Unavailable Ivan, Rigoberto Primary Care Unavailable Basim Luz Attending Unavailabl e Limestone, Rigoberto Primary Care Unavailable Renetta, Rajnis Consulting Unavailable Ivan, Rigoberto Primary Care Unavailable Lauro, Sukumar Attending Unavailable Mary Jo Granados Admitting Unavailable Mary Jo Granados Consulting Unavailable Jensen Claire Attending Unavailable Limestone, Rigoberto Primary Care Unavailable José Miguel Nunez Attending Unavailable Limestone, Rigoberto Primary Care Unavailable Jensen Claire Attending Unavailable Limestone, Rigoberto Referring Unavailable Ivan, Rigoberto Primary Care Unavailable Florencia Maier Attending Unavail able Ivan, Rigoberto Primary Care Unavailable Limestone, Rigoberto Referring Unavailable Jensen Claire Attending Unavailable Limestone, Rigoberto Referring Unavailable Ivan, Rigoberto Primary Care Unavailable Jensen Claire Attending Unavailable Renetta, Nata Consulting Unavailable Mary Jo Granados Admitting Unavailable Limestone, Rigoberto Primary Care Unavailable Mary Jo Granados Consulting Unavailable Lauro, Sukumar Attending Unavailable Lauro, Sukumar Consulting Unavailable Mary Jo Granados Attending Unavailable Limestone, Rigoberto Primary Care Unavailable Ra Aaron Attending Unavailable Limestone, Rigoberto Primary Care Unavailable NUPUR DE LA ROSA Attending Unavailable IVAN, [facility] Primary Care Unavailable ALEXUS MENDEZ Attending Unavailable IVAN, RIGOBERTO J Primary Care Unavailable NUPUR DE LA ROSA Attending Unavailable IVAN, RIGOBERTO J Primary Care Unavailable IVAN, RIGOBERTO J Primary Care Unavailable IVAN, RIGOBERTO J Attending Unavailable JENSEN PUCKETT JR Attending Unavaila ble IVAN, RIGOBERTO J Primary Care Unavailable VIAN, RIGOBERTO J Primary Care Unavailable IVAN, RIGOBERTO J Primary Care Unavailable NUPUR DE LA ROSA Attending Unavailable NUPUR DE LA ROSA Referring Unavailable NUPUR DE LA ROSA Attending Unavailable IVAN, RIGOBERTO J Primary Care Unavailable NUPUR DE LA ROSA Attending Unavailable IVAN, RIGOBERTO J Primary Care Unavailable ALEXUS MENDEZ Attending Unavailable IVAN, RIGOBERTO J Primary Care Unavailable IVAN, RIGOBERTO J Primary Care Unavailable NUPUR DE LA ROSA Attending Unavailable NUPUR DE LA ROSA Attending Unavailable IVAN, RIGOBERTO J Primary Care Unavailable IVAN, RIGOBERTO J Primary Care Unavailable NUPUR DE LA ROSA Attending Unavailable IVAN, RIGOBERTO J Primary Care Unavailable ALEXUS MENDEZ Attending Unavailable SELF Referring Unavailable SUPPGRETCHEN, ALEXUS A Attending Unavailable RIGOBERTO GOULD Primary Care Unavailable MACO RIVERA Attending Unavailable RIGOBERTO GOULD Primary Care Unavailable ALEXUS MENDEZ Attending Unavailable RIGOBERTO GOULD Primary Care Unavailable NUPUR DE LA ROSA Attending Unavailable RIGOBERTO GOULD Primary Care Unavailable Allergies Allergy Classification Reported Allergen(s) Allergy Type Date of Onset Reaction(s) Facility pregabalin (3 sources) pregabalin Drug Allergy 7 Swelling [facility] (4 sources) pregabalin Drug Allergy 7 Swelling [facility] Work Phone: (20 sources) pregabalin; Translations: [PREGABALIN] Drug Allergy 7 Swelling, Rash [facility] Work Phone: (1 source) pregabalin Drug Allergy 5 [facility] Repository Medications Current Medications Medication Drug Class(es) Dates Sig (Normalized) Sig (Original) acetaminophen 500 mg oral tablet (20 sources) Start: 2020 acetaminophen (TYLENOL) tablet 1,000 mg Start: 09-29-2020 End: 12-11-2024 Start: 04-10-2019 take 1-2 capsules by mouth every six hours as needed for pain acetaminophen (TYLENOL EX STR RAPID RELEASE ORAL) Take 1-2 capsules by mouth every 6 hours as needed (pain). 04/10/2019 Suspended Start: 04-10-2019 take 1-2 capsules by mouth every six hours as needed for pain acetaminophen (TYLENOL EX STR RAPID RELEASE ORAL) Take 1-2 capsules by mouth every 6 hours as needed (pain). 04/10/2019 Active Start: 04-10-2019 take 1-2 capsules by mouth every six hours as needed for pain acetaminophen (TYLENOL EX STR RAPID RELEASE ORAL) Take 1-2 capsules by mouth every 6 hours as needed (pain). 0 04/10/2019 Active take 1 tablet by gonzales th every six hours as needed acetaminophen (TYLENOL) 500 MG tablet Take 500 mg by mouth every 6 hours as needed for Pain One tablet as needed orally every 6 hrs 0 Active Comment on above: Take 1-2 capsules by mouth every 6 hours as needed (pain). acetaminophen 325 mg / HYDROcodone bitartrate 5 mg oral tablet (20 sources) Opioid Agonist Start: End: take 1 tablet by mouth once daily as needed, then take 1 tablet by mouth every week as needed HYDROcodone-acetamin ophen (NORCO) 5-325 mg per tablet Indications: Closed fracture of sacrum, unspecified fracture morphology, initial encounter (HCC) Take 1 tablet by mouth once daily as needed (Give 1 tablets before physical therapy/on Sunday, , and Sunday for transport to dialysis, before weekly there is the bladder catheterization) for up to 7 days. 0 01/16/2025 01/23/2025 Active Start: 10-03-2024 End: 10-06-2024 take 1 tablet by mouth every eight hours as needed for pain HYDROcodone-acetaminophen (NORCO) 5-325 mg per tablet Indications: Mechanical complication of internal orthopedic device, implant or graft, initial encounter (HCC) Take 1 tablet by mouth every 8 hours as needed for pain for up to 3 days. 8 tablet 10/03/2024 10/06/2024 Active Start: 04-23-2023 End: 02-20-2024 take 1 tablet by mouth every six hours HYDROcodone-acetaminophen (NORCO) 5-325 mg per tablet Take 1 tablet by mouth every 6 (six) hours. 04/23/2023 02/20/2024 Discontinued (Course of therapy completed) Start: 01-03-2023 take 1 tablet by gonzales th every four hours as needed HYDROcodone-acetaminophen (NORCO) 5-325 mg per tablet Indications: Fracture, femur, supracondylar, right, open type I or II, initial encounter ([facility]) Take 1 tablet by mouth every 4 hours as needed. 30 tablet 0 01/03/2023 Active Start: 05-30-2022 End: 07-07-2022 Start: 05-30-2022 End: 07-07-2022 Hydrocodone-Acetaminophen 5- 325 mg tablet Discontinued 1 {tbl} PO Q8H as needed May 30, 2022 12:00am July 07, 2022 4:37pm Start: 2020 End: 11-10-2020 take 1 tablet by mouth every six hours as needed for pain, then take 1 tablet by mouth as needed for pain HYDROcodone-acetaminophen (NORCO) 5-325 MG per tablet Indications: Chronic kidney disease, stage IV (severe) ([facility]) Take 1 tablet by mouth every 6 hours as needed for Pain for up to 5 days. Intended supply: 5 days. Take lowest dose possible to manage pain 20 tablet 0 2020 11/10/2020 Active Start: 06-03-2018 End: 04-14-2019 Hydrocodone-Acetaminophen 1 TABLET tablet Discontinued 1 {tbl} PO EVERY 4 HOURS NEEDED as needed for Pain June 03, 2018 12:00am April 14, 2019 10:55am Start: 05-25-2017 End: 04-14-2019 HYDROCODONE-ACET AMINOPHEN PO Take by mouth 0 Active Comment on above: Take 1 tablet by gonzales th every 4 hours as needed. Take 1 tablet by gonzales th every 6 (six) hours. ALPRAZolam 0.25 mg disintegrating oral tablet (1 source) Benzodiazepine Start: 11-06-19 21 ALPRAZolam (NIRAVAM) dissolvable tablet 0.25 mg apixaban 5 mg oral tablet (13 sources) Factor Xa Inhibitor Start: 01-17-20 25 take 1 tablet by mouth twice daily apixaban (ELIQUIS) 5 mg tab(s) Take 1 tablet by mouth two times a day. 01/16/2025 Active Start: 12-13-2024 End: 12-26-2024 ELIQUIS 5 mg tab(s) Take 1 t ablet by mouth. 12/16/2024 Suspended atorvastatin 40 mg oral tablet (20 sources) HMG-CoA Reductase Inhibitor Start: 04-05-2017 End: 06-30-2025 take 1 tablet by mouth once daily at bedtime atorvastatin (LIPITOR) 40 mg tablet Indications: Ischemic cardiomyopathy Take 1 tablet by mouth daily at bedtime. 90 tablet 3 06/30/2024 06/30/2025 Active Comment on above: Take 40 mg by mouth once daily. Take 40 mg by mouth daily at bedtime. B Rpelhok-Z-Vreqa Acid (Nephro-Savanah) 0.8 MG tablet (1 source) B Sfjvhrw-I-Iiuo c Acid (Nephro-Savanah) 0.8 MG tablet Take by mouth. 0 Active B Complex-Vitamin C-Folic Acid (Dialyvite 800) 0.8 mg tablet (2 sources) Start: 12-11-2024 take 1 tablet by mouth once daily B Complex-Vitamin C-Folic Acid (Dialyvite 800) 0.8 mg tablet Active 1 {tbl} PO DAILY December 11, 2024 12:00am B Complex-Vitamin C-Folic Acid (NEPHRO-SAVANAH) 0.8 mg tab (20 sources) Start: 05-26-2021 take 1 tablet by mouth once daily in the morning B Complex-Vitamin C-Folic Acid (NEPHRO-SAVANAH) 0.8 mg tab Take 1 tablet by mouth every morning. 05/26/2021 Suspended Start: 05-26-2021 take 1 tablet by gonzales th once daily in the morning B Complex-Vitamin C-Folic Acid (NEPHRO-SAVANAH) 0.8 mg tab Take 1 tablet by mouth every morning. 05/26/2021 Active Start: 05-26-2021 take 1 tablet by gonzales th once daily in the morning B Complex-Vitamin C-Folic Acid (NEPHRO-SAVANAH) 0.8 mg tab Take 1 tablet by mouth every morning. 0 05/26/2021 Active Start: 05-26-2021 B Complex-Catherine min C-Folic Acid (NEPHRO-SAVANAH) 0.8 mg tab Take 1 tablet by mouth. 0 05/26/2021 Active Comment on above: Take 1 tablet by gonzales th. Take 1 tablet by gonzales th every morning. benzonatate 100 mg oral caps ule (9 sources) Non-narcotic Antitussive Start: 12-05-2024 End: 12-20-2024 Start: 03-14-2017 End: 01-15-2018 bumetanide 2 mg oral tablet (20 sources) Loop Diuretic Start: 06-19-2019 End: 06-30-2025 take 1 tablet by mouth once bumetanide (BUMEX) 2 mg tablet Take 1 tablet by mouth every Sunday, Sunday, Sunday, and Sunday. 48 tablet 01/16/2025 Active Start: 06-19-2019 End: 08-01-2019 take 1 tablet by mouth three times daily Bumetanide 2 mg tablet Discontinued 2 mg PO THREE TIMES A DAY June 19, 2019 12:00am August 01, 2019 5:28pm take 1 tablet by gonzales th once daily bumetanide 1 MG tablet Take 1 mg by mouth daily. 0 Active Comment on above: Take 2 mg by mouth o nce daily. Take 2 mg by mouth e very morning. 1 ml diphenhydrAMINE hydrochloride 50 mg/ml cartridge (1 source) Histamine-1 Receptor Antagonist Start: 2020 End: 2020 diphenhydrAMINE (BENADRYL) injection 12.5 mg handicap placcard (2 sources) Start: 07-07-2022 handicap placcard Active 0 .Route .MEDSUPPLY July 07, 2022 1:00am Dx: Debility Exp: 5 years 1 ml HYDROmorphone hydrochloride 1 mg/ml cartridge (4 sources) Opioid Agonist Start: 2020 HYDROmorphone (DILAUDID) injection 1 mg Start: 2020 HYDROmorphone (DILAUDID) injection 0.5 mg Start: 2020 HYDROmorphone (DILAUDID) injection 0.25 mg hydrOXYzine pamoate 25 mg oral capsule (20 sources) Antihistamine Start: 10-28-2024 take 1 tablet by mouth every six hours as needed Hydroxyzine Hcl 25 mg tablet Active 25 mg PO EVERY 6 HOURS as needed for itch October 28, 2024 1:00am Start: 10-07-2024 End: 04-05-2025 take 1 tablet by mouth every six hours as needed hydrOXYzine HCl (ATARAX) 25 mg tablet Indications: Itching Take 1 tablet by mouth every 6 hours as needed for itching/rash. 120 tablet 5 10/07/2024 04/05/2025 Suspended 4 ml labetalol hydrochloride 5 mg/ml cartridge (1 source) beta-Adrenergic Rufus Start: 2020 labetalol (NORMODYNE;TRANDATE) injection 5 mg ammonium lactate 120 mg/ml topical cream (20 sources) Start: 10-09-2024 ammonium lactate (LAC-HYDRIN) 12 % cream Apply to affected area as needed. 140 g 3 10/09/2024 Active Start: 10-07-2024 End: 04-05-2025 ammonium lactate (LAC-HYDRIN ) 12 % lotion Indications: Itching Apply to affected area as needed. 396 g 5 10/07/2024 10/08/2024 Discontinued latanoprost 0.05 mg/ml ophthalmic solution (20 sources) Prostaglandin Analog Start: 05-18-2017 XALATAN 0 .005 % SOLN as directed LATANOPROST [id number] Florencia Maldonado RN Start: 03-23-2017 take 1 drop(s) into the eye(s) once daily at bedtime latanoprost (XALATAN) 0.005 % ophthalmic solution Use 1 Drop in both eyes daily at bedtime. into affected eye(s). 0 03/23/2017 Active Start: 03-12-2017 End: 06-03-2018 take 1 drop(s) into the eye(s) once daily at bedtime latanoprost (XALATAN) 0.005 % ophthalmic solution Use 1 Drop in both eyes daily at bedtime. into affected eye(s). 0 03/23/2017 Active take 1 drop(s) into the eye(s) at bedtime latanoprost 0.005 % Solution ophthalmic solution 1 drop At bedtime. 0 Active Comment on above: Use 1 Drop in both e yes daily at bedtime. into affected eye(s). loratadine 10 mg oral tablet (20 sources) Start: 10-24-2021 Start: 05-30-2021 End: 03-27-2024 take 1 tablet by mouth once daily loratadine (CLARITIN) 10 mg tablet Indications: Seasonal allergic rhinitis due to pollen Take 1 tablet by mouth once daily. 30 tablet 11 03/27/2024 Active take 1 capsule by mo [facility] once daily loratadine (CLARITIN) 10 MG capsule Take 10 mg by mouth daily One capsule orally once a day 0 Active Comment on above: Take 1 tablet by gonzales once daily. melatonin 5 mg oral tablet (20 sources) Start: 08-02-2020 take 2 tablets by mouth at bedtime as needed for sleep Melatonin 5 mg tablet Active 10 mg PO BEDTIME as needed for Sleep August 02, 2020 1:00am Start: 08-02-2020 take 1 tablet by gonzales every twenty-four hours as needed melatonin 5 mg tablet Take 5 mg by mouth at bedtime as needed for for insomnia. 0 Active take 5 mg by mouth at bedtime me latonin 3 MG tablet Take 5 mg by mouth at bedtime. 0 Active take 1 tablet by gonzales once daily at bedtime as needed melatonin 3 MG TABS tablet Take 3 mg by mouth nightly as needed One tablet at bedtime as needed orally once a day 0 Active Comment on above: Take 5 mg by mouth a t bedtime as needed for for insomnia. Take 10 mg by mouth at bedtime as needed for for insomnia. 1 ml meperidine hydrochloride 25 mg/ml cartridge (1 source) Opioid Agonist Start: 11-06-19 meperidine (DEMEROL) injection 12.5 mg Methoxy PEG-Epoetin Beta (MIRCERA IJ) (1 source) Start: 11-07-19 End: 11-06-19 22 Methoxy PEG-Epoetin Beta (MIRCERA IJ) 75 mcg 0 11/06/2020 2021 Active methylPREDNISolone (2 sources) Corticosteroid Start: 11-29-19 End: 12-05-19 methylPREDNISolone (MEDROL, CHLOE,) 4 mg Dose-Pack Follow dosing instructions, take with food. 21 tablet 11/28/2024 12/04/2024 Active metOLazone 5 mg oral tablet (20 sources) Thiazide-like Diuretic Start: 12-30-19 Start: 12-22-2024 End: 12-22-2024 Start: 12-11-2024 End: 12-13-2024 Start: 10-24-2021 End: 12-11-2024 Start: 07-01-2019 End: 05-24-2021 Start: 05-29-2018 End: 06-03-2018 Metolazone 5 mg tablet Disco ntinued 0 PO .COMPLEX 45 May 29, 2018 4:40pm June 03, 2018 3:42pm 5 mg M/Th 30 minutes prior to lasix Start: 05-02-2018 End: 05-29-2018 take 2.5 mg by mouth every other day Metolazone 5 mg tablet Discontinued 0 PO .COMPLEX May 02, 2018 1:08pm May 29, 2018 4:26pm 2.5 mg PO every other day Start: 02-07-2018 End: 08-02-2018 Start: 02-07-2018 End: 05-02-2018 take 1 tablet by mouth every other day Metolazone 5 mg tablet Discontinued 5 mg PO .COMPLEX 45 April 08, 2018 7:44pm May 02, 2018 1:09pm 5 mg PO every other day Start: 01-24-2018 End: 05-24-2018 Start: 01-24-2018 End: 05-24-2018 take 1 tablet by mouth every other day Metolazone 2.5 mg tablet Discontinued 2.5 mg PO .COMPLEX 60 March 20, 2018 10:21am May 24, 2018 12:12pm 2.5 mg PO every other day End: 06-05-2022 take 2.5 mg by mouth once daily metOLazone (ZAROXOLYN) 5 mg tablet Take 2.5 mg by mouth once daily. 0 06/05/2022 Discontinued Comment on above: Take 5 mg by mouth o nce daily. Take 2.5 mg by mouth once daily as needed. Take 2.5 mg by mouth once daily. Take 1 tablet by gonzales once daily. midodrine hydrochloride 5 mg oral tablet (16 sources) alpha-Adrenergic Agonist Start: 12-16-2024 midodrine (PROAMITINE) 5 mg tablet Take 2 tablets by mouth. 12/16/2024 Active Start: 12-13-2024 End: 12-26-2024 take 1 tablet by mouth three times daily midodrine (PROAMITINE) 5 mg tablet Take 5 mg by mouth three times a day. 12/16/2024 Active Start: 12-13-2024 Midodrine 5 mg Tablet Active 10 mg PO 3 TIMES DAILY WITH MEALS 180 December 13, 2024 12:00am Hold for SBP more than 100 mmHg Multiple Vitamin (MULTIVITAMIN ADULT PO) (3 sources) Multiple Vitamin (MULTIVITAMIN ADULT PO) Take by mouth 0 Active Multiple Vitamin (multivitamin) capsule (1 source) take 1 capsule by mouth once daily Multiple Vitamin (multivitamin) capsule Take 1 capsule by mouth daily. 0 Active ofloxacin 3 mg/ml ophthalmic solution (1 source) Quinolone Antimicrobial Start: 01-04-20 21 ofloxacin (OCUFLOX) 0.3 % solution ondansetron 4 mg oral tablet (2 sources) Serotonin-3 Receptor Antagonist Start: 09-04-19 End: 09-14-19 25 take 1 tablet by mouth every eight hours as needed for nausea and nausea ondansetron (ZOFRAN) 4 mg tablet Indications: Nausea Take 1 tablet by mouth every 8 hours as needed for nausea/vomiting for up to 10 days. 30 tablet 09/04/2024 09/14/2024 Active Start: 2020 End: 2020 ondansetron (ZOFRAN) injecti on 4 mg oxyCODONE (1 source) Opioid Agonist Start: 2020 End: 2020 oxyCODONE (ROXICODONE) immediate release tablet 5 mg pantoprazole 40 mg delayed release oral tablet (20 sources) Proton Pump Inhibitor Start: 05-30-2022 End: 06-30-2025 take 1 tablet by mouth once daily in the morning pantoprazole DR (PROTONIX) 40 mg tablet Indications: Gastrointestinal hemorrhage, unspecified gastrointestinal hemorrhage type Take 1 tablet by mouth every morning. 90 tablet 3 06/30/2024 06/30/2025 Active Start: 05-08-2022 End: 12-11-2024 take 1 tablet by mouth twice daily Pantoprazole 40 mg tablet,delayed release (DR/EC) Discontinued 0 .ROUTE .COMPLEX 180 June 19, 2024 12:01pm December 11, 2024 4:39pm TAKE 1 TABLET BY MOUTH TWICE A DAY Comment on above: Take 1 tablet by gonzales th twice daily before meals (0600/1600). 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 Do not take at same time as doxazosin 30 tablet 07/04/2024 07/04/2025 Active Start: 05-18-2017 End: 11-03-2020 Comment on above: Take 20 mg by mouth once daily. traZODone hydrochloride 50 mg oral tablet (17 sources) Serotonin Reuptake Inhibitor Start: End: take 0.5 tablet by mouth once daily at bedtime traZODone (DESYREL) 50 mg tablet Take 0.5 tablets by mouth daily at bedtime for 167 doses. 15 tablet 5 01/16/2025 07/02/2025 Active Start: 01-02-2025 End: 07-01-2025 take 1 tablet by mouth once daily at bedtime traZODone (DESYREL) 100 mg tablet Indications: Chronic insomnia Take 1 tablet by mouth daily at bedtime. 30 tablet 5 01/02/2025 07/01/2025 Suspended Start: 12-05-2024 End: 06-03-2025 (12 sources) Start: 12-11-2024 Start: 10-28-2024 Start: 07-07-2022 Start: 10-24-2021 End: 03-23-2023 Start: 03-21-2019 End: 10-24-2021 Start: 06-03-2018 End: 08-02-2018 Start: 09-04-2017 End: 06-03-2018 Start: 09-04-2017 End: 09-04-2017 Start: 08-23-2017 End: 09-04-2017 Start: 08-21-2017 End: 06-03-2018 Start: 03-15-2016 End: 03-14-2017 Start: 06-16-2015 End: 06-19-2015 Completed/Discontinued Medications Medication Drug Class(es) Dates Sig (Normalized) Sig (Original) acetaminophen 325 mg / oxyCODONE hydrochloride 5 mg oral tablet (1 source) Opioid Agonist Start: 2020 End: 2020 take 1 tablet by mouth every six hours as needed for pain, then take 1 tablet by mouth as needed for pain oxyCODONE-acetami nophen (PERCOCET) 5-325 MG per tablet Indications: Chronic kidney disease, stage IV (severe) (HCC) Take 1 tablet by mouth every 6 hours as needed for Pain for up to 5 days. Intended supply: 5 days. Take lowest dose possible to manage pain 20 tablet 0 2020 2020 Discontinued (Stop Taking at Discharge) amLODIPine 2.5 mg oral tablet (18 sources) Dihydropyridine Calcium Channel Rufus Start: 01-01-2018 End: 05-27-2018 Start: 12-19-2017 End: 12-26-2017 Start: 11-15-2017 End: 12-19-2017 Start: 10-30-2017 End: 11-15-2017 aspirin 81 mg delayed release oral tablet (20 sources) Nonsteroidal Anti-inflammatory Drug Start: 07-07-2022 End: 12-13-2024 Start: 03-27-2017 End: 05-30-2022 Start: 03-12-2017 End: 08-02-2018 Start: 03-12-2017 End: 12-29-2024 take 1 tablet by mouth once daily Aspirin (Adult Aspirin Regimen) 81 mg tablet,delayed release (DR/EC) Discontinued 81 mg PO DAILY April 23, 2024 8:48am December 13, 2024 1:23pm take 1.25 tablets by mouth once daily aspirin, enteric coated (ASPIRIN, ENTERIC COATED) 81 mg EC tablet Take 81 mg by mouth once daily. Last dose 12/28 0 Active aspirin 81 MG Ch ew Tab chewable tablet Chew 81 mg daily. 0 Active take 1 tablet by gonzales th once daily ASPIRIN 81 PO Take by mouth One tablet one time orally daily 0 Active Comment on above: Take 1 tablet by gonzales th once daily. Take 81 mg by mouth once daily. Take 81 mg by mouth once daily. Last dose 12/28 Take 81 mg by mouth once daily. Pt to call and clarify if needs to stop azithromycin 250 mg oral tablet (2 sources) Macrolide Antimicrobial Start: 11-28-2024 End: 12-03-2024 azithromycin (ZITHROMAX Z-CHLOE) 250 mg tablet Take 2 tablets day one, then, 1 tablet daily until gone. 6 tablet 11/28/2024 12/03/2024 B Complex-Vitamin C-Folic Acid (Nephro-Savanah) 0.8 mg tablet (2 sources) Start: 10-24-2021 End: 03-23-2023 B Complex-Vitamin C-Folic Acid (Nephro-Savanah) 0.8 mg tablet Discontinued 1 {tbl} PO DAILY October 24, 2021 1:00am March 23, 2023 1:13pm Blood Pressure Cuff (2 sources) Start: 08-21-2017 End: 06-03-2018 Blood Pressure Cuff Discontinued August 21, 2017 1:00am June 03, 2018 3:34pm As directed calcitriol 0.0005 mg oral capsule (9 sources) Vitamin D3 Analog Start: 08-02-2020 End: 03-30-2021 calcium carbonate 1500 mg oral tablet (6 sources) Start: 10-24-2021 End: 05-30-2022 Start: 10-24-2021 End: 10-24-2021 take 1 tablet by mouth once daily Calcium Carbonate 600 mg calcium (1,500 mg) tablet Discontinued 600 mg PO DAILY October 24, 2021 1:00am October 24, 2021 3:38pm carvedilol 12.5 mg oral tablet (20 sources) alpha-Adrenergic Rufus, beta-Adrenergic Rufus Start: 12-13-2020 End: 06-30-2025 Start: 11-17-2020 End: 12-13-2020 Start: 11-01-2020 End: 11-17-2020 Start: 11-01-2020 End: 06-30-2024 Carvedilol 25 mg tablet Disc ontinued 12.5 mg PO TWICE A DAY November 01, 2020 12:27pm November 01, 2020 12:33pm Start: 12-19-2017 End: 11-01-2020 Start: 10-30-2017 End: 12-19-2017 Start: 08-23-2017 End: 10-30-2017 Start: 05-25-2017 End: 08-23-2017 Start: 05-25-2017 take 2 tablets by mo [facility] twice daily COREG 3.125 MG TABS two tablet by mouth twice daily CARVEDILOL [id number] Florencia Maldonado RN Start: 05-25-2017 take 1 tablet by gonzales twice daily CARVEDILOL 6.25 MG TABS One tablet by mouth twice daily CARVEDILOL [id number] Nick Larkin NP Comment on above: Take 12.5 mg by mout h twice daily with meals. cefdinir 300 mg oral capsule (3 sources) Cephalosporin Antibacterial Start: 12-22-2024 End: 01-06-2025 Start: 06-16-2015 End: 06-19-2015 take 300 mg by mouth twice daily Cefdinir Discontinued 300 mg PO TWICE A DAY June 16, 2015 12:00am June 19, 2015 12:35pm celecoxib 200 mg oral capsule (10 sources) Nonsteroidal Anti-inflammatory Drug Start: 05-18-2017 End: 07-15-2018 Start: 06-16-2015 End: 03-14-2017 cephalexin 500 mg oral capsu le (3 sources) Cephalosporin Antibacterial Start: 03-22-2019 End: 04-14-2019 cloNIDine hydrochloride 0.1 mg oral tablet (4 sources) Central alpha-2 Adrenergic Agonist Start: 08-02-2020 End: 11-03-2020 cyclobenzaprine hydrochlorid e 10 mg oral tablet (3 sources) Muscle Relaxant Start: 03-20-2019 End: 03-22-2019 doxazosin 2 mg oral tablet (20 sources) alpha-Adrenergic Rufus Start: 09-08-2021 End: 12-11-2024 Start: 05-24-2021 End: 09-08-2021 Start: 12-13-2020 End: 03-30-2021 take 1 tablet by mouth twice daily Doxazosin 4 mg tablet Discontinued 4 mg PO TWICE A DAY 180 December 17, 2020 8:16am March 30, 2021 2:08pm Start: 09-29-2020 End: 05-24-2021 Start: 09-29-2020 End: 12-13-2020 take 1 tablet by mouth once daily Doxazosin 4 MG tablet Discontinued 4 mg PO DAILY September 29, 2020 1:00am December 13, 2020 11:05am Start: 11-06-2019 End: 08-02-2020 Start: 11-06-2019 End: 08-02-2020 take 1 tablet by mouth twice daily Doxazosin 2 mg tablet Discontinued 2 mg PO TWICE A DAY 60 April 26, 2020 1:04pm August 02, 2020 2:47pm Start: 08-02-2018 End: 12-18-2018 take 2 mg by mouth once daily Doxazosin 4 mg tablet Di scontinued 2 mg PO DAILY August 02, 2018 3:01pm December 18, 2018 4:12pm Start: 07-25-2018 End: 12-29-2024 take 0.5 tablet by mouth twice daily doxazosin (CARDURA) 4 mg tablet Take 0.5 tablets by mouth twice daily. 11 07/25/2018 12/29/2024 Discontinued (Discontinued by another Health Care Provider) Start: 02-15-2018 End: 06-03-2018 take 1 tablet by mouth twice daily Doxazosin 4 mg tablet Discontinued 4 mg PO TWICE A DAY 180 March 12, 2018 11:09am June 03, 2018 3:43pm Start: 02-13-2018 End: 11-06-2019 Start: 02-13-2018 End: 02-15-2018 take 1 tablet by mouth once daily Doxazosin 4 mg tablet Discontinued 4 mg PO daily 30 February 13, 2018 5:26pm February 15, 2018 4:50pm Start: 01-11-2018 End: 02-13-2018 Comment on above: Take 0.5 tablets by mouth twice daily. 0.3 ml enoxaparin sodium 100 mg/ml prefilled syringe (1 source) Low Molecular Weight Heparin Start: 023 inject 30 mg by subcutaneous injection every twenty-four hours enoxaparin (LOVENOX) 30 mg/0.3 mL injection Inject 0.3 mL subcutaneously q 24 HR. 30 mL 0 01/04/2023 Active Comment on above: Inject 0.3 mL subcut aneously q 24 HR. famotidine 20 mg oral tablet (1 source) Histamine-2 Receptor Antagonist Start: End: famotidine (PEPCID) tablet 20 mg Start: 2020 End: 2020 famotidine (PEPCID) tablet 2 0 mg ferrous sulfate 325 mg oral tablet (2 sources) Start: 07-29-2019 End: 12-02-2021 take 1 tablet by mouth twice daily at mealtime ferrous sulfate 325 mg (65 mg iron) tablet Take 1 tablet by mouth twice daily with meals. 180 tablet 1 07/29/2019 12/02/2021 Discontinued Comment on above: Take 1 tablet by gonzales twice daily with meals. fidaxomicin 200 mg oral tablet (1 source) Macrolide Antibacterial Start: 07-01-2022 End: 07-02-2022 take 1 tablet by mouth twice daily fidaxomicin (DIFICID) 200 mg tablet Take 1 tablet by mouth twice daily for 10 days. 20 tablet 0 07/01/2022 07/02/2022 Discontinued (Cost of medication) Comment on above: Take 1 tablet by gonzales twice daily for 10 days. finasteride 5 mg oral tablet (20 sources) 5-alpha Reductase Inhibitor Start: 05-06-2019 End: 03-23-2023 Comment on above: Take 5 mg by mouth o nce daily. flash glucose scanning reader (FREESTYLE SERGEI 14 DAY READER) misc (2 sources) Start: 04-17-2019 End: 12-02-2021 flash glucose scanning reader (FREESTYLE SERGEI 14 DAY READER) [facility] [place] Indications: Uncontrolled type 2 diabetes mellitus without complication, with long-term current use of insulin 1 Each four times daily. 1 Each 0 04/17/2019 12/02/2021 Discontinued Start: 04-17-2019 flash glucose scanning reader (FREESTYLE SERGEI 14 DAY READER) [facility] Indications: Uncontrolled type 2 diabetes mellitus without complication, with long-term current use of insulin 1 Each four times daily. 1 Each 0 04/17/2019 Active Comment on above: 1 Each four times da mari. flash glucose sensor (FREESTYLE SERGEI 14 DAY SENSOR) kit (2 sources) Start: 04-17-2019 End: 12-02-2021 flash glucose sensor (FREESTYLE SERGEI 14 DAY SENSOR) kit Indications: Uncontrolled type 2 diabetes mellitus without complication, with long-term current use of insulin 1 Each four times daily. 2 Kit 11 04/17/2019 12/02/2021 Discontinued Start: 04-17-2019 flash glucose sensor (FREESTYLE SERGEI 14 DAY SENSOR) kit Indications: Uncontrolled type 2 diabetes mellitus without complication, with long-term current use of insulin 1 Each four times daily. 2 Kit 11 04/17/2019 Active Comment on above: 1 Each four times da mari. furosemide 40 mg oral tablet (20 sources) Loop Diuretic Start: 03-22-2019 End: 04-14-2019 take 1 tablet by mouth once daily Furosemide 40 MG tablet Discontinued 40 mg PO DAILY March 22, 2019 12:00am April 14, 2019 10:56am Start: 12-18-2018 End: 04-14-2019 Start: 08-02-2018 End: 03-22-2019 Furosemide 40 mg tablet Disc ontinued 60 mg PO DAILY August 12, 2018 5:08pm December 18, 2018 4:12pm Start: 07-15-2018 End: 08-12-2018 Start: 07-15-2018 End: 08-12-2018 Furosemide 20 mg tablet Disc ontinued 20 mg PO .COMPLEX August 02, 2018 3:06pm August 12, 2018 5:08pm take 20 mg in addition to your 40 mg for a total of 60 mg a day Start: 07-08-2018 End: 12-18-2018 Start: 07-03-2018 End: 08-02-2018 Furosemide 40 mg tablet Disc ontinued 60 mg PO TWICE A DAY July 08, 2018 11:36am August 02, 2018 3:04pm Start: 01-08-2018 End: 07-03-2018 Start: 12-19-2017 End: 07-08-2018 Start: 08-23-2017 End: 10-30-2017 take 1 tablet by mouth once daily Furosemide 40 MG tablet Discontinued 40 mg PO daily August 23, 2017 1:00pm October 30, 2017 10:29am Start: 08-23-2017 End: 12-19-2017 Start: 08-23-2017 End: 12-19-2017 take 1 tablet by mouth in the evening Furosemide 20 mg tablet Discontinued 20 mg PO .COMPLEX October 30, 2017 1:00am December 19, 2017 2:59pm 20 mg PO two tablets by mouth in the am and one tablet by mouth in the pm Start: 03-14-2017 End: 10-30-2017 Start: 03-14-2017 take 1 tablet by gonzales th once daily LASIX 40 MG TABS One tablet by mouth daily FUROSEMIDE [id number] Lee Chacon MD gabapentin 300 mg oral capsule (16 sources) Anti-epileptic Agent Start: 04-14-2019 End: 06-19-2019 Gabapentin 300 mg capsule Discontinued 100 mg PO AT BEDTIME April 14, 2019 10:54am June 19, 2019 9:59am Start: 08-02-2018 End: 06-19-2019 Start: 03-12-2017 End: 04-14-2019 take 1 capsule by mouth twice daily Gabapentin 300 mg capsule Discontinued 300 mg PO TWICE A DAY December 18, 2018 4:11pm April 14, 2019 10:56am Handicap Placard (6 sources) Start: 09-04-2017 End: 06-03-2018 Handicap Placard Discontinue d 1 September 04, 2017 2:15pm June 03, 2018 3:36pm Lifetime Start: 09-04-2017 End: 09-04-2017 Handicap Placard Discontinue d 1 September 04, 2017 2:03pm September 04, 2017 2:16pm Lifetime 09/04/17 - 09/04/18 Start: 08-23-2017 End: 09-04-2017 Handicap Placard Discontinue d August 23, 2017 1:00am September 04, 2017 2:04pm As directed 1 ml heparin sodium, porcine 5000 unt/ml prefilled syringe (5 sources) Unfractionated Heparin, Anti-coagulant Start: 05-30-2022 End: 03-23-2023 Start: 05-30-2022 End: 03-23-2023 Heparin (Porcine) 5,000 unit /mL syringe Discontinued 5000 U SC Q12H May 30, 2022 12:00am March 23, 2023 1:13pm Start: 05-08-2022 End: 06-05-2022 inject 1 mL by subcutaneous injection every twelve hours heparin 5,000 unit/mL injection Inject 1 mL subcutaneously every 12 hours. 60 mL 2 05/08/2022 06/05/2022 Discontinued (Course of therapy completed) Start: 10-02-2020 End: 09-29-2021 HEPARIN SODIUM, PORCINE, IV Heparin Sodium (Porcine) 1,000 Units/mL Systemic 0 10/02/2020 09/29/2021 Active Comment on above: Inject 1 mL subcutan eously every 12 hours. hydrALAZINE hydrochloride 50 mg oral tablet (20 sources) Arteriolar Vasodilator Start: 04-29-2021 End: 12-11-2024 Start: 03-30-2021 End: 12-11-2024 Hydralazine 50 mg tablet Discontinued 25 mg PO DAILY as needed for elevated blood pressure July 07, 2022 5:03pm December 11, 2024 4:34pm Start: 12-08-2020 End: 03-30-2021 take 2 tablets by mouth three times daily Hydralazine 50 mg tablet Discontinued 100 mg PO THREE TIMES A DAY 90 December 08, 2020 4:32pm March 30, 2021 2:08pm Start: 2020 hydrALAZINE (A PRESOLINE) injection 5 mg Start: 11-01-2020 End: 03-30-2021 Start: 11-01-2020 End: 12-08-2020 take 1 tablet by mouth three times daily Hydralazine 50 mg tablet Discontinued 50 mg PO THREE TIMES A DAY November 01, 2020 12:32pm December 08, 2020 4:33pm Start: 10-11-2020 hydrALAZINE (A PRESOLINE) 50 mg tablet Indications: Hypertension, essential Twice daily: 50 mg dose if blood pressure less than 150/90, 100 mg dose of blood pressure greater than 150/90 Dr. Mujica (nephro) 0 10/11/2020 Active Start: 08-02-2020 End: 11-01-2020 Start: 08-02-2020 End: 11-01-2020 take 1 tablet by mouth three times daily Hydralazine 100 mg tablet Discontinued 100 mg PO THREE TIMES A DAY August 02, 2020 1:00am November 01, 2020 12:29pm Start: 03-30-2020 End: 08-02-2020 take 2 tablets by mouth three times daily Hydralazine 50 MG tablet Discontinued 100 mg PO THREE TIMES A DAY March 30, 2020 3:33pm August 02, 2020 2:44pm Start: 08-01-2019 End: 03-30-2020 take 1 tablet by mouth three times daily Hydralazine 50 mg tablet Discontinued 50 mg PO THREE TIMES A DAY 270 November 06, 2019 1:34pm March 30, 2020 3:33pm Start: 06-19-2019 End: 08-01-2019 take 1 tablet by mouth twice daily Hydralazine 50 mg tablet Discontinued 50 mg PO TWICE A DAY June 19, 2019 9:59am August 01, 2019 5:38pm Start: 04-14-2019 End: 08-02-2020 Start: 04-14-2019 End: 06-19-2019 take 1 tablet by mouth three times daily Hydralazine 50 mg tablet Discontinued 50 mg PO THREE TIMES A DAY April 14, 2019 12:00am June 19, 2019 10:00am Start: 02-19-2018 End: 07-03-2018 take 1 tablet by gonzales th once daily at mealtime hydrALAZINE (APRESOLINE) 100 MG tablet Take 50 mg by mouth 3 times daily One tablet with food 3x daily 0 Active Comment on above: Twice daily: 50 mg d ose if blood pressure less than 150/90, 100 mg dose of blood pressure greater than 150/90 Dr. Mujica (nephro) hydroCHLOROthiazide 12.5 mg oral capsule (3 sources) Thiazide Diuretic Start: 03-12-2017 End: 03-14-2017 3 ml insulin detemir 100 unt/ml pen injector (20 sources) Insulin Analogue Start: 05-30-2022 End: 11-19-2023 Insulin Detemir U-100 (Levemir Flextouch U-100 Insuln) 100 unit/mL (3 mL) insulin pen Discontinued 15 U SC AT BEDTIME May 30, 2022 12:00am November 19, 2023 1:20pm Start: 05-27-2020 End: 06-30-2024 Start: 06-04-2017 End: 06-03-2018 Start: 06-04-2017 End: 06-03-2018 Insulin Detemir U-100 100 UN IT/ML solution Discontinued 100 U SQ June 04, 2017 12:00am June 03, 2018 3:42pm Start: 05-18-2017 LEVEMIR 100 UN IT/ML SOLN as directed INSULIN DETEMIR [id number] Florencia Maldonado RN Start: 03-12-2017 End: 06-03-2018 Insulin Detemir U-100 100 UN ITS/ML insulin pen Discontinued 10 - 16 U SC AT BEDTIME March 12, 2017 10:51am June 03, 2018 3:42pm Start: 06-19-2015 End: 06-03-2018 Start: 06-19-2015 End: 03-12-2017 Insulin Detemir U-100 (Levem ir Flextouch U100 Insulin) 100 UNITS/ML Insuln.Pen Discontinued 10 U SC AT BEDTIME June 19, 2015 12:00am March 12, 2017 10:51am insulin detemir (LEVEMIR) 100 UNIT/ML injection vial Inject into the skin nightly 0 Active Comment on above: Inject 15 Units subc utaneously daily at bedtime. 3 ml insulin glargine 100 unt/ml pen injector (20 sources) Insulin Analog Start: 10-28-2024 Insulin Glargine (Lantus Solostar U-100 Insulin) 100 unit/mL (3 mL) insulin pen Active 10 U SC EVERY EVENING October 28, 2024 1:00am Start: 06-30-2024 End: 10-07-2025 inject 10 [IU] by subcutaneous injection once daily at bedtime LANTUS SOLOSTAR U-100 INSULIN 100 unit/mL (3 mL) Indications: Type 2 diabetes mellitus without complication, with long-term current use of insulin (HCC) Inject 10 Units subcutaneously daily at bedtime. 9 mL 3 10/07/2024 10/07/2025 Suspended inject 15 [IU] by espniosa bcutaneous injection at bedtime insulin glargine 100 UNIT/ML vial Inject 15 Units under the skin At bedtime. 0 Active 3 ml insulin lispro 100 unt/ ml pen injector (16 sources) Insulin Analogue Start: 05-30-2022 End: 11-19-2023 Start: 05-30-2022 End: 11-19-2023 Insulin Lispro (Humalog Kwik pen Insulin) 100 unit/mL insulin pen Discontinued 6 U SC THREE TIMES A DAY May 30, 2022 12:00am November 19, 2023 1:19pm Start: 04-17-2019 End: 06-05-2022 inject 6 [IU] by subcutaneous injection at mealtime insulin lispro (HUMALOG KWIKPEN) 100 unit/mL inpn Indications: Uncontrolled type 2 diabetes mellitus without complication, with long-term current use of insulin Inject 6 Units subcutaneously w MEALS. 5.4 mL 0 04/17/2019 06/05/2022 Discontinued Start: 06-04-2017 End: 06-03-2018 Start: 06-04-2017 End: 06-03-2018 Insulin Lispro 100 UNIT/ML solution Discontinued 100 U SQ June 04, 2017 12:00am June 03, 2018 3:42pm Start: 05-18-2017 HUMALOG 100 UN IT/ML SOLN as directed INSULIN LISPRO (HUMAN) [id number] Florencia Maldonado RN Comment on above: Inject 6 Units subcu taneously w MEALS. levoFLOXacin 750 mg oral tablet (3 sources) Quinolone Antimicrobial Start: 04-12-2019 End: 04-29-2019 Lidocaine (2 sources) Antiarrhythmic, Amide Local Anesthetic Start: 12-03-2024 End: 12-03-2024 OTHER, X (OR/PROCEDURE) PRN, Starting on Sun12/03/24 at 1000, Until Sun12/03/24 at 1000, Intraprocedure Start: 2020 End: 2020 lidocaine PF 1 % injection 1 mL lisinopril 20 mg oral tablet (20 sources) Angiotensin Converting Enzyme Inhibitor Start: 07-03-2018 End: 12-18-2018 Start: 07-03-2018 End: 07-15-2018 take 1 tablet by mouth once daily Lisinopril 20 mg tablet Discontinued 20 mg PO DAILY July 08, 2018 8:52am July 15, 2018 10:58am Start: 10-30-2017 End: 07-03-2018 Start: 10-30-2017 End: 07-03-2018 take 1 tablet by mouth once daily Lisinopril 40 mg tablet Discontinued 40 mg PO daily May 14, 2018 1:42pm June 03, 2018 3:42pm Start: 08-23-2017 End: 10-30-2017 Start: 05-18-2017 take 1 tablet by gonzales th once daily LISINOPRIL 5 MG TABS One tablet by mouth daily LISINOPRIL [id number] Florencia Maldonado RN Start: 05-18-2017 take 1 tablet by gonzales th twice daily LISINOPRIL 10 MG TABS One tablet by mouth twice daily LISINOPRIL [id number] Nick Larkin NP Start: 03-14-2017 End: 08-23-2017 take 2 tablets by mouth twice daily LISINOPRIL 5 MG TABS two tablet by mouth twice daily LISINOPRIL [id number] Florencia Maldonado RN Start: 03-14-2017 End: 08-23-2017 take 1 tablet by mouth twice daily Lisinopril 5 MG tablet Discontinued 5 mg PO TWICE A DAY March 14, 2017 12:00am August 23, 2017 1:01pm Start: 03-15-2016 End: 03-14-2017 take 2.5 mg by mouth once daily Lisinopril Discontinue d 2.5 mg PO DAILY March 15, 2016 12:00am March 14, 2017 11:52am metFORMIN hydrochloride 500 mg oral tablet (17 sources) Biguanide Start: 05-18-2017 End: 05-25-2017 take 2 tablets by mouth in the morning, then take 1 tablet by mouth at lunch, then take 1 tablet by mouth at dinner METFORMIN HCL 500 MG TABS Two tablets by mouth in am, 1 tab at lunch and 1 tab at dinner METFORMIN HCL [id number] Florencia Maldonado RN Start: 06-19-2015 End: 08-23-2017 Start: 01-31-2015 End: 08-23-2017 Metformin 1,000 MG tablet Di scontinued 500 mg PO 5 TIMES DAILY March 15, 2016 2:11pm August 23, 2017 12:47pm Start: 01-31-2015 End: 06-19-2015 Metformin 1,000 MG tablet Di scontinued 500 mg PO TWICE DAILY WITH MEALS January 31, 2015 12:00am June 19, 2015 12:41pm metoprolol tartrate 25 mg or al tablet (11 sources) beta-Adrenergic Rufus Start: 03-14-2017 End: 08-23-2017 minoxidil 2.5 mg oral tablet (4 sources) Arteriolar Vasodilator Start: 09-22-2020 End: 12-13-2020 End: 11-03-2020 take 2 tablets by mouth once daily minoxidil (LONITEN) 2.5 MG tablet Take 2.5 mg by mouth daily 2 tablets orally once a day 0 11/03/2020 Discontinued (LIST CLEANUP) Multivitamin With Minerals 1 EACH tablet (2 sources) Start: 03-21-2019 End: 10-24-2021 take 1 tablet by mouth once daily Multivitamin With Minerals 1 EACH tablet Discontinued 2 {tbl} PO DAILY March 21, 2019 12:00am October 24, 2021 3:37pm MULTIVITAMIN/IRON/FO LIC ACID (DAILY MULTI ORAL) (4 sources) take 2 doses by mouth once daily MULTIVITAMIN/IRON/F OLIC ACID (DAILY MULTI ORAL) Take 2 Each by mouth once daily. 0 Active Comment on above: Take 2 Each by mouth once daily. Mv,Ca,Dwx-Cwkr-Xc-Ly copene 1 EACH tablet (2 sources) Start: 06-03-2018 End: 08-02-2018 take 1 tablet by mouth once daily Mv,Ca,Vak-Macp-Ql-L ycopene 1 EACH tablet Discontinued 2 NMA PO DAILY June 03, 2018 12:00am August 02, 2018 3:03pm nitroglycerin 0.4 mg sublingual tablet (7 sources) Nitrate Vasodilator Start: 05-18-2017 NITROGLYCERIN 0.4 MG SUBL 1 tablet under the tongue every 5 minutes times 3 as needed for chest pain. NITROGLYCERIN [id number] Florencia Maldonado RN Start: 03-14-2017 End: 06-03-2018 Start: 03-14-2017 End: 06-03-2018 Nitroglycerin 0.4 MG tablet Discontinued 0.4 mg SL Q5M as needed for Chest Pain March 14, 2017 12:00am June 03, 2018 3:43pm pioglitazone 15 mg oral tablet (12 sources) Peroxisome Proliferator Receptor alpha Agonist, Peroxisome Proliferator Receptor gamma Agonist, Thiazolidinedione Start: 08-08-2019 End: 07-07-2022 Start: 01-31-2015 End: 06-19-2015 Comment on above: Take 1 tablet by gonzales th once daily. pollen extracts (PROSTAT ORAL) (9 sources) take 30 mL by mouth twice daily pollen extracts (PROSTAT ORAL) Take 30 mL by mouth twice daily. Protein supplement 0 Active Comment on above: Take 30 mL by mouth twice daily. Protein supplement polyethylene glycol 400 4 mg/ml / propylene glycol 3 mg/ml ophthalmic solution (7 sources) Start: 06-04-2017 End: 01-15-2018 Start: 05-25-2017 SYSTANE CLIFN myriam ye gtts as needed POLYETHYL GLYCOL-PROPYL GLYCOL SOLN [id number] Lee Chacon MD pravastatin sodium 80 mg ora l tablet (20 sources) HMG-CoA Reductase Inhibitor Start: 03-14-2017 End: 01-27-2019 sacubitril 24 mg / valsartan 26 mg oral tablet (6 sources) Angiotensin 2 Receptor Rufus Start: 01-14-2019 End: 01-24-2019 Start: 01-14-2019 End: 01-24-2019 Sacubitril-Valsartan (Entres to) 24-26 mg tablet Discontinued 1 {tbl} PO TWICE A DAY 60 January 14, 2019 10:56am January 24, 2019 1:08pm sevelamer carbonate 800 mg o ral tablet (20 sources) Phosphate Binder Start: 05-30-2022 End: 12-22-2024 Start: 10-10-2020 End: 03-30-2021 Comment on above: Take 800 mg by mouth three times daily with meals. sildenafil 25 mg oral tablet (20 sources) Phosphodiesterase 5 Inhibitor Start: 05-30-2022 End: 10-28-2024 sildenafil (VIAG RA) 25 mg tablet Take 25 mg by mouth as needed (Noted on patient's paper taking 20mg tablet, 3 tablets as needed). 0 Active take 3 tablets by mo [facility] once daily as needed sildenafil (REVATIO) 20 MG tablet Take 2 0 mg by mouth as needed 3 Tablets as needed orally once a day 0 Active Comment on above: Take 25 mg by mouth as needed (Noted on patient's paper taking 20mg tablet, 3 tablets as needed). sodium polystyrene sulfonate 250 mg/ml oral suspension (3 sources) Start: 03-22-2019 End: 04-14-2019 tamsulosin hydrochloride 0.4 mg oral capsule (11 sources) alpha-Adrenergic Rufus Start: 08-02-2018 End: 12-18-2018 Start: 08-02-2018 End: 12-18-2018 Tamsulosin 0.4 mg capsule Discontinued PO August 02, 2018 1:00am December 18, 2018 4:11pm Start: 05-18-2017 End: 05-25-2017 take 1 tablet by mouth once daily TAMSULOSIN HCL 0.4 MG CAPS One tablet by mouth daily TAMSULOSIN HCL [id number] Florencia Maldonado RN torsemide 20 mg oral tablet (13 sources) Loop Diuretic Start: 04-14-2019 End: 06-19-2019 Start: 04-14-2019 End: 05-06-2019 take 1 tablet by mouth twice daily Torsemide 20 mg tablet Discontinued 20 mg PO TWICE A DAY 60 April 14, 2019 12:00am May 06, 2019 5:08pm Comment on above: Take 20 mg by mouth twice daily. traMADol hydrochloride 50 mg oral tablet (20 sources) Opioid Agonist Start: 10-28-2024 End: 12-11-2024 Start: 10-03-2024 End: 10-10-2024 take 1 tablet by mouth twice daily as needed for pain traMADol (ULTRAM) 50 mg tablet Indications: Instability of prosthetic knee, initial encounter ([facility]) ([facility]) Take 1 tablet by mouth two times a day as needed for pain for up to 7 days. 14 tablet 10/03/2024 10/03/2024 Discontinued (Lack of Efficacy) Start: 06-04-2017 End: 01-15-2018 Start: 05-18-2017 take 1 tablet by gonzales once daily TRAMADOL HCL 50 MG TABS One tablet by mouth daily TRAMADOL HCL [id number] Florencia Maldonado RN End: 10-03-2024 take 1 tablet by mouth every six hours as needed traMADol (ULTRAM) 50 mg tablet Take 50 mg by mouth every 6 hours as needed for pain. 10/03/2024 Discontinued triamcinolone acetonide 40 m g/ml injectable suspension (3 sources) Corticosteroid Start: 03-20-2019 End: 04-14-2019 vancomycin 125 mg oral capsu le (16 sources) Glycopeptide Antibacterial Start: 10-12-2022 End: 03-23-2023 Start: 07-02-2022 take 1 capsule by mo [facility] four times daily, then take 1 capsule by mouth twice daily, then take 1 capsule by mouth once daily, then take 1 capsule by mouth every other day vancomycin (VANCOCIN HCL) 125 mg capsule Vancomycin 125 mg orally 4 times daily by mouth for 10 days, then 125 mg orally 2 times daily for 7 days, then 125 mg orally once daily for 7 days, then 125 mg orally every 2 days for 2 weeks 68 capsule 0 07/02/2022 Active Start: 05-30-2022 End: 07-07-2022 Start: 05-30-2022 End: 07-07-2022 take 1 capsule by mouth every six hours Vancomycin 125 mg capsule Discontinued 125 mg PO EVERY 6 HOURS May 30, 2022 12:00am July 07, 2022 4:37pm Vancomycin HCl ( FIRVANQ) 50 mg/mL oral liquid Take 125 mg by mouth four times daily. Cdiff 0 Active Comment on above: Take 125 mg by mouth four times daily. Cdiff Vancomycin 125 mg or ally 4 times daily by mouth for 10 days, then 125 mg orally 2 times daily for 7 days, then 125 mg orally once daily for 7 days, then 125 mg orally every 2 days for 2 weeks Problems Active Problems Problem Classification Problem Date Documented Date Episodic/Chronic Abdominal hernia (1 source) Umbilical hernia; Translations: [Umbilical hernia without obstruction or gangrene] 03-27-2024 Episodic Acute and unspecified renal failure (10 sources) Renal failure syndrome; Translations: [Unspecified kidney failure] Onset: 12-24-2024 09-24-2020 Chronic Acute myocardial infarction (14 sources) Non-ST elevation (NSTEMI) myocardial infarction; Translations: [Myocardial infarction] Onset: 03-22-2017 03-22-2017 Chronic Cardiac dysrhythmias (20 sources) Ventricular tachycardia; Translations: [Bradycardia] Onset: 05-18-2017 05-18-2017 Chronic Chronic kidney disease (20 sources) Chronic kidney disease stage 4; Translations: [End stage renal failure on dialysis] Onset: 03-24-2019 Resolved: 12-02-2021 10-28-2020 Chronic Comment on above: for removal 03/30/2021 Chronic ulcer of skin (3 sources) Pressure ulcer of sacral region, stage 1; Translations: [Pressure ulcer, lower back] Onset: 01-16-2025 01-16-2025 Chronic Complication of device; implant or graft (1 source) Vascular graft occlusion; Translations: [Stenosis of other vascular prosthetic devices, implants and grafts, initial encounter] Chronic Complication of device; implant or graft (4 sources) Breakdown (mechanical) of internal fixation device of right femur, initial encounter; Translations: [Dislocation of other internal joint prosthesis, initial encounter] Onset: 01-01-2023 09-22-2024 Episodic Congestive heart failure; nonhypertensive (20 sources) Acute systolic heart failure; Translations: [Chronic combined systolic and diastolic heart failure] Onset: 05-24-2017 05-24-2017 Chronic Coronary atherosclerosis and other heart disease (20 sources) Atherosclerotic heart disease of [place]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 angina pectoris; Translations: [Ischemic myocardial dysfunction] Onset: 03-22-2017 03-22-2017 Chronic Comment on above: S/P surgery with PARSON A to LAD, SVG to OM system, and SVG to PDA in March 2017 at [facility]; Coronary atherosclerosis and other heart disease (3 sources) History of coronary artery bypass grafting; Translations: [Presence of aortocoronary bypass graft] Onset: 04-18-2019 10-28-2020 Episodic Deficiency and other anemia (1 source) Anemia of chronic renal failure; Translations: [Anemia of chronic renal failure, stage 3 (moderate)] Onset: 03-05-2018 10-28-2020 Chronic Deficiency and other anemia (20 sources) Anemia co-occurrent and due to chronic kidney disease stage 3; Translations: [Anemia of chronic renal failure, stage 3 (moderate)] Onset: 03-05-2018 Resolved: 12-02-2021 03-24-2019 Chronic Deficiency and other anemia (20 sources) Anemia due to blood loss; Translations: [Iron deficiency anemia secondary to blood loss (chronic)] Onset: 04-30-2022 04-30-2022 Chronic Diabetes mellitus with complications (20 sources) Proliferative retinopathy with diabetes mellitus; Translations: [Type 2 diabetes mellitus] Onset: 05-24-2017 10-28-2020 Chronic Diabetes mellitus without complication (20 sources) Type 2 diabetes mellitus without complications; Translations: [Type 2 diabetes mellitus without complication] Onset: 03-21-2016 05-24-2017 Chronic Disorders of lipid metabolism (11 sources) Pure hypercholesterolemia; Translations: [Pure hypercholesterolemia, unspecified] Onset: 10-28-2020 10-28-2020 Chronic E Codes: Fall (3 sources) Fall in home; Translations: [Unspecified fall, initial encounter] 05-01-2022 Episodic Essential hypertension (20 sources) Hypertensive disorder; Translations: [Essential hypertension] Onset: 07-11-2017 07-11-2017 Chronic Fracture of lower limb (1 source) Closed fracture of left lower limb; Translations: [Unspecified fracture of left lower leg, sequela] Episodic Gastroduodenal ulcer (except hemorrhage) (3 sources) H/O: gastric ulcer; Translations: [Personal history of peptic ulcer disease] 10-12-2022 Episodic Genitourinary symptoms and ill-defined conditions (10 sources) Retention of urine; Translations: [Retention of urine, unspecified] Onset: 12-29-2024 12-29-2024 Episodic Glaucoma (20 sources) Preglaucoma, unspecified, left eye; Translations: [Suspected glaucoma of left eye] Onset: 09-24-2017 10-28-2020 Chronic Gout and other crystal arthropathies (6 sources) Gout; Translations: [Gout, unspecified] Onset: 10-28-2020 10-28-2020 Chronic Hyperplasia of prostate (3 sources) Benign prostatic hyperplasia; Translations: [Benign prostatic hyperplasia without lower urinary tract symptoms] Onset: 09-23-2020 09-23-2020 Chronic Immunizations and screening for infectious disease (2 sources) Vaccination needed; Translations: [Encounter for immunization] Episodic Intestinal infection (4 sources) Clostridium difficile colitis; Translations: [Enterocolitis due to Clostridium difficile, not specified as recurrent] Episodic Malaise and fatigue (9 sources) Asthenia; Translations: [Weakness] Onset: 10-28-2020 10-28-2020 Episodic Miscellaneous mental health disorders (2 sources) Chronic insomnia; Translations: [Psychophysiologic insomnia] 12-05-2024 Chronic Neoplasms of unspecified nature or uncertain behavior (2 sources) Neoplasm of uncertain behavior of skin of lower limb; Translations: [Neoplasm of uncertain behavior of skin] 11-08-2023 Episodic Nephritis; nephrosis; renal sclerosis (3 sources) Nephrotic syndrome; Translations: [Nephrotic syndrome with unspecified morphologic changes] Onset: 09-23-2020 09-23-2020 Chronic Osteoarthritis (1 source) Arthritis of right foot; Translations: [Primary osteoarthritis, right ankle and foot] 06-04-2024 Chronic Other aftercare (1 source) Long-term current use of anticoagulant; Translations: [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 anticoagulants] 01-07-2025 Episodic Other circulatory disease (6 sources) History of cardiomyopathy; Translations: [Personal history of other diseases of the circulatory system] 12-11-2024 Episodic Other connective tissue disease (1 source) Presence of right artificial knee joint; Translations: [Presence of right artificial knee joint] Onset: 01-01-2023 Chronic Other connective tissue disease (3 sources) Presence of right artificial hip joint; Translations: [Presence of right artificial hip joint] Onset: 01-01-2023 Chronic Other connective tissue disease (1 source) History of total knee arthroplasty; Translations: [Presence of right artificial knee joint] 09-22-2024 Chronic Other connective tissue disease (4 sources) History of total hip arthroplasty; Translations: [Presence of right artificial hip joint] 09-22-2024 Chronic Other connective tissue disease (2 sources) History of repair of hip joint; Translations: [Presence of right artificial hip joint] 11-21-2024 Chronic Other connective tissue disease (6 sources) Swelling of lower limb; Translations: [Other specified soft tissue disorders] Onset: 01-22-2018 10-28-2020 Episodic Other connective tissue disease (2 sources) Pain of right thigh; Translations: [Pain in right thigh] 08-28-2024 Episodic Other connective tissue disease (1 source) Quadriceps weakness; Translations: [Muscle weakness (generalized)] 09-22-2024 Episodic Other connective tissue disease (1 source) Pain in right lower limb; Translations: [Pain in right leg] 11-14-2024 Episodic Other diseases of kidney and ureters (6 sources) Renal impairment; Translations: [Disorder of kidney and ureter, unspecified] Onset: 03-24-2019 10-28-2020 Episodic Other endocrine disorders (3 sources) Hyperparathyroidism; Translations: [Hyperparathyroidism, unspecified] Onset: 09-23-2020 09-23-2020 Chronic Other fractures (1 source) Closed fracture of pelvis; Translations: [Fracture of unspecified parts of lumbosacral spine and pelvis, initial encounter for closed fracture] 01-07-2025 Episodic Other fractures (1 source) Closed fracture sacrum; Translations: [Unspecified fracture of sacrum, initial encounter for closed fracture] 01-07-2025 Episodic Other fractures (4 sources) Fracture of sacrum; Translations: [Unspecified fracture of sacrum, initial encounter for closed fracture] Onset: 01-07-2025 01-07-2025 Episodic Other fractures (4 sources) Fracture of superior pubic ramus; Translations: [Fracture of superior rim of left pubis, initial encounter for closed fracture] Onset: 01-07-2025 01-07-2025 Episodic Other fractures (1 source) Unspecified fracture of sacrum, initial encounter for closed fracture; Translations: [Closed fracture of sacrum, unspecified fracture morphology, initial encounter ([facility])] Onset: 01-15-2025 Episodic Other infections; including parasitic (3 sources) History of bacterial infection; Translations: [Personal history of other infectious and parasitic diseases] 10-12-2022 Episodic Other inflammatory condition of skin (1 source) Itching ; Translations: [Pruritus, unspecified] 10-07-2024 Episodic Other injuries and conditions due to external causes (1 source) Closed injury of head; Translations: [Unspecified injury of head, initial encounter] 01-07-2025 Episodic Other male genital disorders (1 source) Secondary erectile dysfunction; Translations: [Male erectile dysfunction, unspecified] 07-04-2024 Chronic Other nervous system disorders (20 sources) Mononeuropathy; Translations: [Mononeuropathy in diseases classified elsewhere] Onset: 08-11-2016 10-28-2020 Chronic Other nervous system disorders (1 source) Abnormal sensation; Translations: [Other disturbances of skin sensation] 12-30-2023 Episodic Other non-traumatic joint disorders (5 sources) Acute ankle pain; Translations: [Pain in right ankle and joints of right foot] 02-13-2024 Episodic Other non-traumatic joint disorders (2 sources) Pain in right hip; Translations: [Pain of right hip] Onset: 09-22-2024 Episodic Other non-traumatic joint disorders (1 source) Pain in left hip; Translations: [Pain in left hip] Onset: 01-12-2025 Episodic Other nutritional; endocrine; and metabolic disorders (2 sources) Body mass index 25-29 - overweight; Translations: [Overweight with body mass index (BMI) 25.0-29.9] Onset: 10-28-2020 10-28-2020 Chronic Other nutritional; endocrine; and metabolic disorders (4 sources) Body mass index 25-29 - overweight; Translations: [Overweight] Onset: 10-28-2020 10-28-2020 Episodic Other skin disorders (2 sources) Mass of skin of right lower limb; Translations: [Disorder of the skin and subcutaneous tissue, unspecified] 12-28-2023 Episodic Other upper respiratory disease (1 source) Allergic rhinitis due to pollen; Translations: [Allergic rhinitis due to pollen] 03-27-2024 Chronic Other upper respiratory infections (2 sources) Acute upper respiratory infection; Translations: [Acute upper respiratory infection, unspecified] 05-17-2023 Episodic [place]-; endo-; and myocarditis; cardiomyopathy (20 sources) Heart valve disorder; Translations: [Cardiomyopathy] Onset: 05-24-2017 05-24-2017 Chronic Peripheral and visceral atherosclerosis (20 sources) Peripheral vascular disease; Translations: [Peripheral vascular disease, unspecified] Onset: 07-11-2017 10-28-2020 Chronic Pulmonary heart disease (6 sources) Pulmonary hypertension; Translations: [Pulmonary hypertension, unspecified] Onset: 10-28-2020 10-28-2020 Chronic Residual codes; unclassified (20 sources) Obstructive sleep apnea syndrome; Translations: [Obstructive sleep apnea (adult) (pediatric)] Onset: 04-30-2022 Chronic Residual codes; unclassified (1 source) Pain; Translations: [Pain, unspecified] 06-25-2024 Episodic Residual codes; unclassified (3 sources) Left against medical advice; Translations: [Procedure and treatment not carried out because of patient's decision for other reasons] 09-24-2020 Episodic Residual codes; unclassified (3 sources) Edema of lower extremity; Translations: [Localized edema] 09-29-2020 Episodic Rheumatoid arthritis and related disease (8 sources) Ankylosing spondylitis; Translations: [Ankylosing spondylitis of unspecified sites in spine] Onset: 10-28-2020 10-28-2020 Chronic Skin and subcutaneous tissue infections (6 sources) Abscess of foot; Translations: [Cutaneous abscess of unspecified foot] Onset: 10-28-2020 10-28-2020 Episodic Unclassified (4 sources) Coronary artery bypass graft; Translations: [Presence of aortocoronary bypass graft] Onset: 03-22-2017 03-22-2017 Unclassified (1 source) Unknown / UNK(Unknown) Onset: 02-06-2018 Unclassified (2 sources) Cervical spine sprain; Translations: [Sprain of ligament of cervical spine region] Onset: 04-18-2019 10-28-2020 Unclassified (2 sources) Type 2 diabetes mellitus without complication; Translations: [Uncontrolled type 2 diabetes mellitus without complication, with long-term current use of insulin] Onset: 03-21-2016 10-28-2020 Urinary tract infections (20 sources) Urinary tract infectious disease; Translations: [Urinary tract infection, site not specified] Onset: 03-24-2019 Resolved: 12-02-2021 10-28-2020 Episodic Past or Other Problems Problem Classification Problem Date Documented Da te Episodic/Chronic Acute and unspecified renal failure (20 sources) Acute injury of kidney; Translations: [Acute kidney failure, unspecified] Onset: 9 Resolved: 2 03-24-2019 Episodic Administrative/social admission (20 sources) Encounter for examination and observation for other specified reasons; Translations: [Encounter for blood-alcohol and blood-drug test] Onset: 7 Resolved: 2 10-11-2020 Episodic Cardiac dysrhythmias (1 source) Bradycardia; Translations: [Bradycardia, unspecified] Onset: 7 10-28-2020 Episodic Chronic kidney disease (2 sources) Anemia of chronic renal failure; Translations: [Anemia of chronic renal failure, stage 3 (moderate)] Onset: 8 10-28-2020 Episodic Complications of surgical procedures or medical care (1 source) Periprosthetic fracture around internal prosthetic right hip joint, sequela; Translations: [Periprosthetic fracture around internal prosthetic right hip joint, sequela] Onset: 3 Episodic Fluid and electrolyte disorders (20 sources) Hyperkalemia; Translations: [Hyponatremia] Onset: 9 Resolved: 5 10-28-2020 Episodic Fracture of lower limb (20 sources) Closed fracture of femur; Translations: [Other fracture of right femur, initial encounter for closed fracture] Onset: 2 04-23-2022 Episodic Gastrointestinal hemorrhage (20 sources) Gastrointestinal hemorrhage; Translations: [Gastrointestinal hemorrhage, unspecified] Onset: 2 Resolved: 3 Episodic Nausea and vomiting (2 sources) Nausea; Translations: [Nausea] Onset: 5 09-04-2024 Episodic Noninfectious gastroenteritis (2 sources) Gastroenteritis; Translations: [Noninfective gastroenteritis and colitis, unspecified] Onset: 5 09-04-2024 Episodic Nutritional deficiencies (20 sources) Malnutrition (calorie); Translations: [Moderate protein-calorie malnutrition] Onset: 9 Resolved: 2 10-28-2020 Chronic Other bone disease and musculoskeletal deformities (20 sources) Senile osteopenia; Translations: [Other specified disorders of bone density and structure, unspecified site] Onset: 1 10-28-2020 Episodic Other circulatory disease (20 sources) Personal history of other diseases of the circulatory system; Translations: [History of cardiac arrhythmia] Onset: 9 10-28-2020 Episodic Other connective tissue disease (1 source) Pain in right thigh; Translations: [Right thigh pain] Onset: 5 Episodic Other diseases of bladder and urethra (20 sources) Flaccid neurogenic bladder; Translations: [Flaccid neuropathic bladder, not elsewhere classified] Onset: 0 Resolved: 2 10-28-2020 Chronic Other endocrine disorders (3 sources) Hypoglycemia; Translations: [Hypoglycemia, unspecified] Onset: 5 Resolved: 5 01-15-2025 Chronic Other fractures (20 sources) Compression fracture of thoracic spine; Translations: [Wedge compression fracture of unspecified thoracic vertebra, initial encounter for closed fracture] Onset: 2 05-07-2022 Episodic Other gastrointestinal disorders (20 sources) Chronic constipation; Translations: [Other constipation] Onset: 6 Resolved: 2 10-28-2020 Episodic Other lower respiratory disease (20 sources) Hypoxia; Translations: [Hypoxemia] Onset: 9 Resolved: 2 10-28-2020 Episodic Other nervous system disorders (4 sources) Disorder of brain; Translations: [Encephalopathy, unspecified] Onset: 5 Resolved: 5 01-08-2025 Chronic Other non-traumatic joint disorders (20 sources) Hip pain; Translations: [Pain in left hip] Onset: 8 Resolved: 5 10-28-2020 Episodic Other non-traumatic joint disorders (9 sources) Pain in right knee; Translations: [Pain in joint, lower leg] Onset: 4 02-13-2024 Episodic Other non-traumatic joint disorders (1 source) Pain in right ankle and joints of right foot; Translations: [Acute right ankle pain] Onset: 4 Episodic Other nutritional; endocrine; and metabolic disorders (20 sources) Hyperphosphatemia; Translations: [Other disorders of phosphorus metabolism] Onset: 9 Resolved: 2 10-28-2020 Chronic Other nutritional; endocrine; and metabolic disorders (20 sources) Hypoalbuminemia; Translations: [Other disorders of plasma-protein metabolism, not elsewhere classified] Onset: 9 Resolved: 2 10-28-2020 Chronic Other screening for suspected conditions (not mental disorders or infectious disease) (20 sources) Patient encounter status; Translations: [Encounter for screening for malignant neoplasm of colon] Onset: 3 Episodic Pleurisy; pneumothorax; pulmonary collapse (20 sources) Bilateral pleural effusion; Translations: [Pleural effusion] Onset: 7 Resolved: 2 03-22-2017 Episodic Residual codes; unclassified (20 sources) Delirium; Translations: [Disorientation, unspecified] Onset: 9 Resolved: 2 10-28-2020 Episodic Residual codes; unclassified (20 sources) Edema of lower leg ; Translations: [Localized edema] Onset: 8 Resolved: 2 03-24-2019 Episodic Residual codes; unclassified (20 sources) Altered mental status; Translations: [Altered mental status, unspecified] Onset: 9 Resolved: 9 07-05-2019 Episodic Residual codes; unclassified (20 sources) Transition of care; Translations: [Other specified health status] Onset: 9 Resolved: 9 08-23-2021 Episodic Residual codes; unclassified (1 source) Pain, unspecified; Translations: [Pain] Onset: Episodic Spondylosis; intervertebral disc disorders; other back problems (20 sources) Low back pain; Translations: [Low back pain] Onset: 6 10-28-2020 Episodic Sprains and strains (20 sources) Strain of neck muscle; Translations: [Cervical spine sprain] Onset: 9 Resolved: 2 10-28-2020 Episodic Unclassified (1 source) PAIN IN RIGHT HIP Onset: 8 Unclassified (9 sources) Transition of care; Translations: [Transition of care performed with sharing of clinical summary] Onset: 9 Resolved: 9 08-23-2021 Results Test Name Value Interpretation Reference Range Facility [facility] 01-22-2025 [facility] Telephone (UROLMD) -- MAURI QUINONES ([id number]) 1955 [facility] Date Time Provider Department 01/22/25 JENSEN PUCKETT JR UROMARA During your visit today, we recorded the following information about you: Lissette Sanabria RN 01/22/2025 9:24 AM Signed Vandana WEINBERG calling from [employer] calling ([phone]) to clarify if the cath once weekly on was a legitimate order. After reviewing discharge summary from inpatient stay it is a valid order. [place] 5/325 1 tablet before transport to dialysis, before physical therapy, and for his weekly urinary catheterization on urinary catheterization because of recurrent UTIs to be done weekly on THURSDAYS She is aware that it is the correct order. Verbalizes understanding. Allergies As of Date: 01/22/2025 Noted Allergy Reaction LYRICA (PREGABALIN) 03/23/2017 7 - Swelling Date Reviewed: 01/16/2025 Reviewed by: Libby Rodas RN - Fully Assessed Reason for Visit: CIC Clarification [Other] Prescriptions as of 01/22/2025 - bumetanide (BUMEX) 2 mg tablet Take 1 tablet by mouth every Sunday, Sunday, Sunday, and Sunday. - apixaban (ELIQUIS) 5 mg tab(s) Take 1 tablet by mouth two times a day. - HYDROcodone-acetaminophen (NORCO) 5-325 mg per tablet Take 1 tablet by mouth once daily as needed (Give 1 tablets before physical therapy/on Sunday, , and Sunday for transport to dialysis, before weekly there is the bladder catheterization) for up to 7 days. - traZODone (DESYREL) 50 mg tablet Take 0.5 tablets by mouth daily at bedtime for 167 doses. - midodrine (PROAMITINE) 5 mg tablet Take 5 mg by mouth three times a day. - ammonium lactate (LAC-HYDRIN) 12 % cream Apply to affected area as needed. - Tadalafil (CIALIS) 20 mg tablet Take 1 tablet by mouth once daily as needed. Do not take at same time as doxazosin - pantoprazole DR (PROTONIX) 40 mg tablet Take 1 tablet by mouth every morning. - Insulin [place], Disposable, (BD ULTRA-FINE GOLDY PEN NEEDLE) 32 gauge x 5/32 Use one needle for each dose. once/day. - atorvastatin (LIPITOR) 40 mg tablet Take 1 tablet by mouth daily at bedtime. - loratadine (CLARITIN) 10 mg tablet Take 1 tablet by mouth once daily. - sevelamer carbonate (RENVELA) 800 mg tablet Take 800 mg by mouth three times daily with meals. - B Complex-Vitamin C-Folic Acid (NEPHRO-SAVANAH) 0.8 mg tab Take 1 tablet by mouth every morning. - melatonin 5 mg tablet Take 10 mg by mouth at bedtime as needed for for insomnia. - acetaminophen (TYLENOL EX STR RAPID RELEASE ORAL) Take 1-2 capsules by mouth every 6 hours as needed (pain). - latanoprost (XALATAN) 0.005 % ophthalmic solution Use 1 Drop in both eyes daily at bedtime. into affected eye(s). 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] 09/24/2017 Hypertension, essential [I10] 10/23/2017 Lower leg edema [R60.0] 01/22/2018 12/02/2021 Chronic left hip pain [M25.552, G89.29] 03/04/2018 10/30/2022 Anemia of chronic renal failure, stage 3 (moder*03/05/2018 12/02/2021 Acute on chronic diastolic congestive heart zane*07/14/2018 Recurrent right pleural effusion [J90] 07/14/2018 12/02/2021 PVD (peripheral vascular disease) (HCC) [I73.9] 07/16/2018 Altered mental status [R41.82] 03/24/2019 07/05/2019 UTI (urinary tract infection) [N39.0] 03/24/2019 12/02/2021 Chronic combined systolic and diastolic CHF (co*03/24/2019 Hyperkalemia [E87.5] 03/24/2019 12/02/2021 Hypoxia [R09.02] 03/24/2019 12/02/2021 Hypoalbuminemia [E88.09] 03/24/2019 12/02/2021 GARRET (acute kidney injury) (HCC) [N17.9] 03/24/2019 12/02/2021 CKD (chronic kidney disease) stage 3, GFR 30-59*03/24/2019 04/18/2019 High phosphate levels [E83.39] 03/24/2019 12/02/2021 Hyponatremia [E87.1] 03/24/2019 12/02/2021 Delirium [R41.0] 03/29/2019 12/02/2021 Malnutrition of moderate degree (HCC) [E44.0] 04/01/2019 12/02/2021 Transition of care performed with sharing of cl*04/08/2019 04/18/2019 Chronic kidney disease, stage IV (severe) (HCC)*04/18/2019 12/02/2021 Ischemic cardiomyopathy [I25.5] 04/18/2019 Sprain of ligament of cervical spine region [S1*04/18/2019 12/02/2021 History of coronary artery bypass graft [Z95.1] 04/18/2019 History of ventricular tachycardia [Z86.79] 04/18/2019 Proliferative retinopathy of both eyes associat*06/17/2019 Flaccid neuropathic bladder, 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 Normal [facility] Albumin SerPl-mCncon 025 Albumin [Mass/Vol] 3.4 g/dL Low 3.9-4.9 [facility] Comment on above: Order Comment: Speci men Type: BLOOD SPECIMENOrdering Facility: [facility] Address: [address] [address] Performed By: #### 1 751-7, 2777-1, 81754-9 ####[facility] LABORATORYCLIA [id number] [place] [address] [place] Basic metabolic 2000 panelon 01-16-2025 Anion gap [Moles/Vol] 13 mmol/L Normal 8-15 [facility] Comment on above: Order Comment: Speci men Type: BLOOD SPECIMENOrdering Facility: [facility] Address: [address] [place] [address] Performed By: #### 1 751-7, 27702-24, 29878-7 ####[facility] LABORATORYCLIA [id number] [place] [address] [place] Calcium [Mass/Vol] 9.9 mg/dL Normal 8.5-10.2 [facility] Comment on above: Order Comment: Speci men Type: BLOOD SPECIMENOrdering Facility: [facility] Address: [address] [address] Performed By: #### 1 751-7, 27702-24, 39616-7 ####AD[facility] LABORATORYCLIA [id number] [place] [address] [place] Chloride [Moles/Vol] 91 mmol/L Low 98-107 [facility] Comment on above: Order Comment: Speci men Type: BLOOD SPECIMENOrdering Facility: [facility] Address: [address] [place] [address] Performed By: #### 1 751-7, 2776-08, 63341-2 ####AD[facility] LABORATORYCLIA [id number] [place] [address] [place] CO2 [Moles/Vol] 27 mmol/L Normal 22-30 [facility] Comment on above: Order Comment: Speci men Type: BLOOD SPECIMENOrdering Facility: [facility] Address: [address] [place] [address] Performed By: #### 1 751-7, 2776-08, 45781-3 ####AD[facility] LABORATORYCLIA [id number] [place] [address] [place] Creatinine [Mass/Vol] 3.66 mg/dL High 0.73-1.22 [facility] Comment on above: Order Comment: Speci men Type: BLOOD SPECIMENOrdering Facility: [facility] Address: [address] [place] [address] Performed By: #### 1 751-7, 27702-24, 56626-1 ####[facility] LABORATORYCLIA [id number] [place] [address] [place] Creatinine and Glomerular filtration rate.predicted panel (S/P/Bld) 17 mL/min/1.73m??? Low >=60 [facility] Comment on above: Order Comment: Kelsi huff Type: BLOOD SPECIMENOrdering Facility: [facility] Address: [address] [place] [address] Result Comment: Caryl mated Glomerular Filtration Rate (eGFR) is calculated using the 2020 CKD-EPI creatinine equation. This equation utilizes serum creatinine, sex, and age as parameters. The creatinine assay has traceable calibration to isotope dilution-mass spectrometry. Refer to KDIGO guidelines for clinical interpretation. In patients with unstable renal function, e.g. those with acute kidney injury, the eGFR may not accurately reflect actual GFR. Performed By: #### 1 751-7, 2777-1, 47623-6 ####[facility] LABORATORYCLIA [id number] [place] [id number] [place] Glucose [Mass/Vol] 109 mg/dL High 74-99 [facility] Comment on above: Order Comment: Kelsi huff Type: BLOOD SPECIMENOrdering Facility: [facility] Address: [address] [place] [address] Result Comment: The [place] Diabetes [employer] (ADA) provides guidance for cutoff values for fasting glucose and random glucose. The ADA defines fasting as no caloric intake for at least 8 hours. Fasting plasma glucose results between 100 to 125 [...] Standards of Medical Care in Diabetes 2016, [place] [employer]. Diabetes Care. 2016.39(Suppl 1). Performed By: #### 1 751-7, 2777-1, 66365-7 ####[facility] LABORATORYCLIA [id number] [place] [address] [place] Potassium [Moles/Vol] 4.4 mmol/L Normal 3.7-5.1 [facility] Comment on above: Order Comment: Speci men Type: BLOOD SPECIMENOrdering Facility: [facility] Address: [address] [place] [address] Performed By: #### 1 751-7, 2777, 13652-4 ####[facility] LABORATORYCLIA [id number] [place] [address] [place] Sodium [Moles/Vol] 131 mmol/L Low 136-144 [facility] Comment on above: Order Comment: Speci men Type: BLOOD SPECIMENOrdering Facility: [facility] Address: [address] [place] [address] Performed By: #### 1 751-7, 27702-24, 63227-5 ####[facility] LABORATORYCLIA [id number] [address] [place] Urea nitrogen [Mass/Vol] 28 mg/dL High 9-24 [facility] Comment on above: Order Comment: Speci men Type: BLOOD SPECIMENOrdering Facility: [facility] Address: [address] [place] [address] Performed By: #### 1 751-7, 27702-24, ####AD[facility] LABORATORYCLIA [id number] [place] [address] [place] CBC panel Auto (Bld)on 01-16 Erythrocyte distribution width (RBC) [Ratio] 16.2 % High 11.5-15.0 [facility] Comment on above: Order Comment: Speci men Type: BLOOD SPECIMENOrdering Facility: [facility] Address: [address] [place] [address] Performed By: #### 5 8410-2 ####[facility] LABORATORYCLIA [id number] [address] [place] Hematocrit (Bld) [Volume fraction] 36.1 % Low 39.0-51.0 [facility] Comment on above: Order Comment: Speci men Type: BLOOD SPECIMENOrdering Facility: [facility] Address: [address] [place] [address] Performed By: #### 5 8410-2 ####[facility] LABORATORYCLIA [id number] [address] Hemoglobin (Bld) [Mass/Vol] 11.6 g/dL Low 13.0-17.0 [facility] Comment on above: Order Comment: Speci men Type: BLOOD SPECIMENOrdering Facility: [facility] Address: [address] [place] [address] Performed By: #### 5 8410-2 ####[facility] LABORATORYCLIA [id number] [address] MCH (RBC) [Entitic mass] 31.3 pg Normal 26.0-34.0 [facility] Comment on above: Order Comment: Speci men Type: BLOOD SPECIMENOrdering Facility: [facility] Address: [address] [place] [address] Performed By: #### 5 8410-2 ####[facility] LABORATORYCLIA [id number] [address] MCHC (RBC) [Mass/Vol] 32.1 g/dL Normal 30.5-36.0 [facility] Comment on above: Order Comment: Speci men Type: BLOOD SPECIMENOrdering Facility: [facility] Address: [address] [place] [address] Performed By: #### 5 8410-2 ####[facility] LABORATORYCLIA [id number] [address] MCV (RBC) [Entitic vol] 97.3 fL Normal 80.0-100.0 [facility] Comment on above: Order Comment: Speci men Type: BLOOD SPECIMENOrdering Facility: [facility] Address: [address] [place] [address] Performed By: #### 5 8410-2 ####[facility] LABORATORYCLIA [id number] [address] Nucleated RBC (Bld) [#/Vol] 10*3/uL Normal <0.01 [facility] Comment on above: Order Comment: Speci men Type: BLOOD SPECIMENOrdering Facility: [facility] Address: [address] [place] [address] Performed By: #### 5 8410-2 ####[facility] LABORATORYCLIA [id number] [address] Platelet mean volume (Bld) [Entitic vol] 9.7 fL Normal 9.0-12.7 [facility] Comment on above: Order Comment: Speci men Type: BLOOD SPECIMENOrdering Facility: [facility] Address: [address] [place] [address] Performed By: #### 5 8410-2 ####[facility] LABORATORYCLIA [id number] [address] [place] Platelets (Bld) [#/Vol] 155 10*3/uL Normal 150-400 [facility] Comment on above: Order Comment: Speci men Type: BLOOD SPECIMENOrdering Facility: [facility] Address: [address] [place] [address] Result Comment: No c lot detected. Performed By: #### 5 8410-2 ####[facility] LABORATORYCLIA [id number] [address] RBC (Bld) [#/Vol] 3.71 10*6/uL Low 4.20-6.00 [facility] Comment on above: Order Comment: Speci men Type: BLOOD SPECIMENOrdering Facility: [facility] Address: [address] [place] [address] Performed By: #### 5 8410-2 ####[facility] LABORATORYCLIA [id number] [address] WBC (Bld) [#/Vol] 7.16 10*3/uL Normal 3.70-11.00 [facility] Comment on above: Order Comment: Speci men Type: BLOOD SPECIMENOrdering Facility: [facility] Address: [address] [place] [address] Performed By: #### 5 8410-2 ####ADAM LABORATORYCLIA [id number] [place] [id number] [facility] [place] CNDSon 01-16-2025 CNDS HNO ID: [id number] Author: EVARISTO DAS MD Service: Hospital Medicine Author Type: Physician Type: Discharge Summary Filed: 01/16/2025 10:02 Note Text: DISCHARGE SUMMARY PATIENT NAME: Mauri Quinones Code Status: Full Code Highest Readmission Risk Score: 17 The 30 day readmissions risk score is derived from an internally validated risk model which evaluates patient level characteristics, utilization history, medication orders and lab results up until the day of discharge. Patients with a score of 39 or above are considered highest risk for readmission. Specific patient level drivers will be listed at the bottom of the summary. Addendum: Patient woke up with rash the day after discharge she had had Atarax and Zyrtec stopped along with stopping as needed Benadryl and cutting her dose of steroids. Per history when practitioner Glanc called me no other symptoms as far as angioedema shortness of breath more pruritus or anything. I called the patient thinking her PCP probably would not be aware of everything and went to voicemail and left a message. And the message to return a call to me.Evaristo aDs MD January 16, 2025 10:01 AM Admission Information Admission Information ADMIT DATE: 01/07/2025 DISCHARGE DATE: 01/16/2025 MY DOCTORS AND MEDICAL TEAM: My Main Hospital Doctor: Evaristo Das MD Primary Care Provider: Rigoberto Gould MD My Medical Team Members: Treatment Team: Attending Provider: Evaristo Das MD Consulting: Josafat Loredo MD Consulting: Scott Saucedo MD MY CONDITION AT DISCHARGE: Stable REASON I WAS IN THE HOSPITAL: Fall with sacral fracture and superior ramus fracture SUMMARY OF WHAT HAPPENED WHILE I WAS IN THE HOSPITAL: Treatment is going to be weightbearing as tolerated with physical therapy. Complicated by aspirating a mucous plug and subsequent hypoglycemia. Calcium level was high because of inactivity most likely and studies are sent by that and this will be followed up by the lottery office manager. Very sensitive to medications and [place]wood 5/325 1 tablet before each transport to dialysis, catheterization needed every and 1 tablet of the [place] before 30 minutes before that, 1 tablet before transport to the correction facility-1 tablet 30 minutes before physical therapy OTHER PROBLEMS/DIAGNOSIS: Principal Problem: Sacral fracture (HCC) Active Problems: Closed fracture of left superior pubic ramus (HCC) ESRD (end stage renal disease) on dialysis (HCC) Chronic combined systolic and diastolic CHF (congestive heart failure) (HCC) History of coronary artery bypass graft Chronic atrial fibrillation (HCC) Type 2 diabetes mellitus without complication, with long-term current use of insulin (HCC) History of recurrent UTIs Resolved Problems: Left hip pain Encephalopathy acute CO2 retention Hypoglycemia OPERATIONS PERFORMED WHILE IN THE HOSPITAL: None IMPORTANT TEST/PROCEDURES: No procedures performed but medications for high potassium and need for extra dialysis TEST RESULTS NOT AVAILABLE AT THIS TIME: Laboratory studies to evaluate high calcium level but this was probably from immobilization according to the kidney specialist Dr. Loredo Discharge Disposition Discharge Disposition: Home With Self Care Activity When You Leave the Hospital Limited to: Activity levels are to be directed by the assessments of the occupational and physical therapists. Weightbearing as tolerated-patient to get 1 tablet of [place] 30 minutes before physical therapy Diet Instructions Renal Low potassium diet For Pain When You Leave the Hospital Use acetaminophen (Tylenol) as recommended on the bottle Additional Provider to Provider Information: Consultants: Dr. Saucedo/Dr. De La Rosa for orthopedics Dr. Loredo for nephrology PROCEDURES: NONE CODE STATUS: Full code ACCEPTS BLOOD PRODUCTS: YES : ASSESSMENT/PLAN Reason for Admission: Left superior ramus pelvic fracture fracture Anticoagulation: Prior to admission: Apixaban Current: Apixaban Smoking history: Never INTERVAL EVENTS: Mauri Quinones is a 69 year old male presented with past medical history of DM, CAD s/p CABG, afib on eliquis, ESRD on IHD T Sun, Chronic systolic and diastolic heart failure (EF 45% grade 2 diastolic dysfunction, RVSP 49mmHg), Right KEMAR and Right TKA who presents with fall and left hip pain. Englewood 5/325 1 tablet before transport to dialysis, before physical therapy, and for his weekly urinary catheterization on urinary catheterization because of recurrent UTIs to be done weekly on [facility] HISTORY HOSPITAL COURSE: Mauri Quinones is a 69 year old male presented with past medical history of DM, CAD s/p CABG, afib on eliquis, ESRD on IHD T TH Sat, Chronic systolic and diastolic heart failure (EF 45% grade 2 diastolic dysfunction, RVSP 49mmHg), Right KEMAR and Right TKA who presents with fall an (more content not included)... [facility] CONSULT PROGon 01-16-2025 CONSULT PROG HNO ID: [id number] Author: JOSAFAT LOREDO MD Service: Nephrology Author Type: Physician Type: Consult Progress Note Filed: 01/16/2025 07:53 Note Text: NEPHROLOGY CONSULT PROGRESS NOTE Subjective INTERVAL HISTORY: The patient was seen and examined . No acute event overnight. PERTINENT ROS: GENERAL: No fever/chills. RESPIRATORY: Negative for cough, wheezing or shortness of breath. CARDIOVASCULAR: Negative for chest pain or palpitations. GI: Negative for nausea, vomiting, Diarrhea, abdominal pain. : Negative for dysuria and hematuria MEDICATIONS: Current Facility-Administered Medications Medication Dose Route Frequency midodrine 5 mg tab(s) (PROAMITINE) 5 mg ORAL TID pantoprazole DR 40 mg tab(s) (PROTONIX) 40 mg ORAL DAILY (6 AM) latanoprost 0.005 % 1 drop (XALATAN) 1 drop BOTH EYES AT BEDTIME melatonin 9 mg tab(s) 9 mg ORAL AT BEDTIME PRN dextrose 40 % 15 g 15 g ORAL PRN Or glucagon 1 mg injection 1 mg INTRAMUSCULAR PRN Or dextrose 10% iv bolus 12.5 g INTRAVENOUS PRN NaCl 0.9% iv flush bag 20 mL INTRAVENOUS PRN acetaminophen 1,000 mg tab(s) (TYLENOL) 1,000 mg ORAL q 8 H ondansetron (PF) 4 mg injection (ZOFRAN) 4 mg INTRAVENOUS q 6 H PRN ipratropium-albuterol 3 mL nebulizer solution (DUONEB) 3 mL INHALATION QID apixaban 5 mg tab(s) (ELIQUIS) 5 mg ORAL BID traZODone 25 mg tab(s) (DESYREL) 25 mg ORAL AT BEDTIME ammonium lactate 12 % (LAC-HYDRIN) TOPICAL PRN bumetanide 2 mg tab(s) (BUMEX) 2 mg ORAL MO-WE-ESPINOSA benzonatate 100 mg cap(s) (TESSALON PERLE) 100 mg ORAL TID sodium chloride 0.9 % (flush) 2-10 mL (BD POSIFLUSH) 2-10 mL INTRAVENOUS DIRECTED PRN sodium chloride 0.9 % (flush) 2-10 mL (BD POSIFLUSH) 2-10 mL INTRAVENOUS DIRECTED PRN HYDROcodone 5 mg - acetaminophen 325 mg tablet (NORCO) 1 tablet ORAL DAILY PRN HYDROcodone 5 mg - acetaminophen 325 mg tablet (NORCO) 1 tablet ORAL DAILY PRN HYDROcodone 5 mg - acetaminophen 325 mg tablet (NORCO) 1 tablet ORAL DAILY PRN Objective PHYSICAL EXAM: BP 108/58 Pulse 79 Temp 37.1 ?C (98.8 ?F) (Tympanic) Resp 18 Wt 71 kg (156 lb 8.4 oz) SpO2 99% BMI 22.46 kg/m? Intake/Output Summary (Last 24 hours) at 01/16/2025 0751 Last data filed at 01/15/2025 1820 Gross per 24 hour Intake 1665 ml Output 3090 ml Net -1425 ml GENERAL: NAD HEENT : NCAT, MMM and pink EYES: Conjunctiva -Pallor, Non icterus sclera. NECK: supple, No JVD, LUNGS: CTA without rales or wheeze, diminished breath sounds, CV: no murmurs, clicks, or gallops. ABDOMEN: soft, NT, BS normal EDEMA : no Lower extremity/ no Dependent edema DATA: Diagnostic tests reviewed for today's visit: Most recent labs and imaging results. Recent Labs 01/16/25 0543 01/15/25 0607 01/14/25 1121 01/14/25 0553 WBC 7.16 8.75 -- 11.11* HB 11.6* 12.6* -- 13.2 HCT 36.1* 39.5 -- 39.9 PLT 155 146* -- 149* NA -- 130* 131* 129* K -- 5.8* 4.9 5.6* CHLOR -- 88* 89* 87* CO2 -- BUN -- 51* 41* 36* CREAT -- 5.16* 4.42* 4.02* GLUC -- 107* 112* 124* CA -- 10.7* 10.8* 10.8* MG -- 2.5* -- -- P -- 7.7* -- -- Recent Labs 01/15/25 0838 01/15/25 0607 TPROT 6.3 -- ALB -- 3.5* Assessment/Plan 1. ESRD on hemodialysis 2. Anemia of chronic kidney disease 3. Secondary hyperparathyroidism 4. Hypertension but a history of intradialytic hypotension and on midodrine 5. Left hip pain and CT scan of pelcis : minimally displaced fracture of left sacrum with questionably minimally displaced fractures of the left superior pelvic ramus. 6. Chronic combined systolic and diastolic failure 7. Coronary disease status post CABG 7. Atrial fibrillation on Eliquis 8. Type 2 diabetes Plan of management Patient underwent session of hemodialysis and 3 L of ultrafiltration with dialysis and tolerated No new labs today. Check renal function panel magnesium today Monitor potassium and give Lokelma as needed No need for hemodialysis today next of dialysis in a.m. ----Hemodialysis for 3.5 hours, 3 L ultrafiltration Hemoglobin 11.6 no need for BETTIE therapy Iron study with transferrin saturation 6.1, will add ferritin to a.m. labs Continue BETTIE as needed and vitamin therapy with dialysis same as outpatient hemodialysis center. Continue on Bumex 2 mg once daily Continue on Renvela 1 tablet 3 times with each meal Continue midodrine 5 mg 3 times a day Hypercalcemia: PTH 254. Last phosphorus 5.9 Will give Zometa 3 mg IV x 1 dose Hypercalcemia workup ordered Normal [facility] Phosphate [facility] 01-16 Phosphate [Mass/Vol] 5.4 mg/dL High 2.7-4.8 [facility] Comment on above: Order Comment: Speci men Type: BLOOD SPECIMENOrdering Facility: [facility] Address: [address] [place] [address] Performed By: #### 1 751-7, 2777-1, 99527-6 ####[facility] LABORATORYCLIA [id number] [place] [address] [place] 1,25-dihydroxyvitamin D3 [Ma ss/Vol]on 01-15-2025 VIT D1,25 DIHYDROXY 20.6 pg/mL Normal 19.9-79.3 [facility] Comment on above: Order Comment: Speci men Type: BLOOD SPECIMENOrdering Facility: [facility] Address: [address] [place] [address] Performed By: #### 1 649-3 ####[facility] LABCLIA [id number] [place] [address] [place] Albumin [facility] 025 Albumin [Mass/Vol] 3.5 g/dL Low 3.9-4.9 [facility] Comment on above: Order Comment: Speci men Type: BLOOD SPECIMENOrdering Facility: [facility] Address: [address] [place] [address] Performed By: #### 2 4321-2, 1751-7, 3084-1, 11174-5, 2776-1 ####[facility] LABORATORYCLIA [id number] [place] [address] [place] Basic metabolic 2000 panelon 01-15-2025 Anion gap [Moles/Vol] 16 mmol/L High 8-15 [facility] Comment on above: Order Comment: Speci men Type: BLOOD SPECIMENOrdering Facility: [facility] Address: [address] [place] [address] Performed By: #### 2 4321-2, 1750-7, 3084-1, 63755-1, 2776-1 ####[facility] LABORATORYCLIA [id number] [place] [address] [place] Calcium [Mass/Vol] 10.7 mg/dL High 8.5-10.2 [facility] Comment on above: Order Comment: Speci men Type: BLOOD SPECIMENOrdering Facility: [facility] Address: [address] [place] [address] Performed By: #### 2 4321-2, 1750-7, 3084-1, 66254-7, 2776-1 ####[facility] LABORATORYCLIA [id number] [address] [place] Chloride [Moles/Vol] 88 mmol/L Low 98-107 [facility] Comment on above: Order Comment: Speci men Type: BLOOD SPECIMENOrdering Facility: [facility] Address: [address] [place] [address] Performed By: #### 2 4321-2, 1750-7, 3084-1, 23403-8, 7-1 ####[facility] LABORATORYCLIA [id number] [place] [address] [place] CO2 [Moles/Vol] 26 mmol/L Normal 22-30 [facility] Comment on above: Order Comment: Kelsi huff Type: BLOOD SPECIMENOrdering Facility: [facility] Address: [address] [place] [address] Performed By: #### 2 4321-2, 175-7, 3084-1, 49106-4, 2776-08 ####[facility] LABORATORYCLIA [id number] [place] [address] [place] Creatinine [Mass/Vol] 5.16 mg/dL High 0.73-1.22 [facility] Comment on above: Order Comment: Kelsi huff Type: BLOOD SPECIMENOrdering Facility: [facility] Address: [address] [place] [address] Performed By: #### 2 4321-2, 1750-7, 3084-1, 06744-5, 2776-08 ####[facility] LABORATORYCLIA [id number] [address] STATES OF [facility] Creatinine and Glomerular filtration rate.predicted panel (S/P/Bld) 12 mL/min/1.73m??? Low >=60 [facility] Comment on above: Order Comment: Kelsi huff Type: BLOOD SPECIMENOrdering Facility: [facility] Address: [address] [place] [address] Result Comment: Caryl mated Glomerular Filtration Rate (eGFR) is calculated using the 2020 CKD-EPI creatinine equation. This equation utilizes serum creatinine, sex, and age as parameters. The creatinine assay has traceable calibration to isotope dilution-mass spectrometry. Refer to KDIGO guidelines for clinical interpretation. In patients with unstable renal function, e.g. those with acute kidney injury, the eGFR may not accurately reflect actual GFR. Performed By: #### 2 4321-2, 1750-7, 3084-1, 41245-6, 2776-08 ####[facility] LABORATORYCLIA [id number] [place] [address] [place] Glucose [Mass/Vol] 107 mg/dL High 74-99 [facility] Comment on above: Order Comment: Kelsi daria Type: BLOOD SPECIMENOrdering Facility: [facility] Address: [address] [place] [address] Result Comment: The [place] [employer] (ADA) provides guidance for cutoff values for fasting glucose and random glucose. The ADA defines fasting as no caloric intake for at least 8 hours. Fasting plasma glucose results between 100 to 125 [...] Standards of Medical Care in Diabetes 2016, [place] [employer]. Diabetes Care. 2016.39(Suppl 1). Performed By: #### 2 4321-2, 1751-02, 3083-, , 2776-08 ####[facility] LABORATORYCLIA [id number] [place] [address] [place] Potassium [Moles/Vol] 5.8 mmol/L High 3.7-5.1 [facility] Comment on above: Order Comment: Kelsi huff Type: BLOOD SPECIMENOrdering Facility: [facility] Address: [address] [place] [address] Performed By: #### 2 4321-2, 1751-02, 3083-08, , 2776-08 ####[facility] LABORATORYCLIA [id number] [place] [address] [place] Sodium [Moles/Vol] 130 mmol/L Low 136-144 [facility] Comment on above: Order Comment: Kelsi huff Type: BLOOD SPECIMENOrdering Facility: [facility] Address: [address] [address] Performed By: #### 2 4321-2, 7, 3083-08, , 2776-08 ####[facility] LABORATORYCLIA [id number] [place] [address] [place] Urea nitrogen [Mass/Vol] 51 mg/dL High 9-24 [facility] Comment on above: Order Comment: Kelsi huff Type: BLOOD SPECIMENOrdering Facility: [facility] Address: [address] [address] Performed By: #### 2 4321-2, 1751-7, 3084-1, 94912-9, 2777-1 ####[facility] LABORATORYCLIA [id number] [address] CBC panel Auto (Bld)on 01-15 Erythrocyte distribution width (RBC) [Ratio] 16.2 % High 11.5-15.0 [facility] Comment on above: Order Comment: Speci men Type: BLOOD SPECIMENOrdering Facility: [facility] Address: [address] [place] [address] Performed By: #### 5 8410-2 ####AD[facility] LABORATORYCLIA [id number] [address] Hematocrit (Bld) [Volume fraction] 39.5 % Normal 39.0-51.0 [facility] Comment on above: Order Comment: Speci men Type: BLOOD SPECIMENOrdering Facility: [facility] Address: [address] [place] [address] Performed By: #### 5 8410-2 ####AD[facility] LABORATORYCLIA [id number] [address] Hemoglobin (Bld) [Mass/Vol] 12.6 g/dL Low 13.0-17.0 [facility] Comment on above: Order Comment: Speci men Type: BLOOD SPECIMENOrdering Facility: [facility] Address: [address] [place] [address] Performed By: #### 5 8410-2 ####[facility] LABORATORYCLIA [id number] [address] MCH (RBC) [Entitic mass] 31.2 pg Normal 26.0-34.0 [facility] Comment on above: Order Comment: Speci men Type: BLOOD SPECIMENOrdering Facility: [facility] Address: [address] [place] [address] Performed By: #### 5 8410-2 ####[facility] LABORATORYCLIA [id number] [address] MCHC (RBC) [Mass/Vol] 31.9 g/dL Normal 30.5-36.0 [facility] Comment on above: Order Comment: Speci men Type: BLOOD SPECIMENOrdering Facility: [facility] Address: [facility] [place] [address] Performed By: #### 5 8410-2 ####ADAM LABORATORYCLIA [id number] [place] [address] [place] MCV (RBC) [Entitic vol] 97.8 fL Normal 80.0-100.0 [facility] Comment on above: Order Comment: Speci men Type: BLOOD SPECIMENOrdering Facility: [facility] Address: [address] [place] [address] Performed By: #### 5 8410-2 ####ADAM LABORATORYCLIA [id number] [address] [place] Nucleated RBC (Bld) [#/Vol] 10*3/uL Normal <0.01 [facility] Comment on above: Order Comment: Speci men Type: BLOOD SPECIMENOrdering Facility: [facility] Address: [address] [place] [address] Performed By: #### 5 8410-2 ####ADAM LABORATORYCLIA [id number] [address] STATES [facility] Platelet mean volume (Bld) [Entitic vol] 10.4 fL Normal 9.0-12.7 [facility] Comment on above: Order Comment: Speci men Type: BLOOD SPECIMENOrdering Facility: [facility] Address: [address] [place] [address] Performed By: #### 5 8410-2 ####ADAM LABORATORYCLIA [id number] [place] [address] [place] Platelets (Bld) [#/Vol] 146 10*3/uL Low 150-400 [facility] Comment on above: Order Comment: Speci men Type: BLOOD SPECIMENOrdering Facility: [facility] Address: [address] [place] [address] Performed By: #### 5 8410-2 ####ADAM LABORATORYCLIA [id number] [address] [place] RBC (Bld) [#/Vol] 4.04 10*6/uL Low 4.20-6.00 [facility] Comment on above: Order Comment: Speci men Type: BLOOD SPECIMENOrdering Facility: [facility] Address: [address] [place] [address] Performed By: #### 5 8410-2 ####ADAM LABORATORYCLIA [id number] [address] WBC (Bld) [#/Vol] 8.75 10*3/uL Normal 3.70-11.00 [facility] Comment on above: Order Comment: Speci men Type: BLOOD SPECIMENOrdering Facility: [facility] Address: [address] [place] [address] Performed By: #### 5 8410-2 ####ADAM LABORATORYCLIA [id number] [address] CONSULT PROGon 01-15-2025 CONSULT PROG HNO ID: [id number] Author: JOSAFAT LOREDO MD Service: Nephrology Author Type: Physician Type: Consult Progress Note Filed: 01/15/2025 08:14 Note Text: NEPHROLOGY CONSULT PROGRESS NOTE Subjective INTERVAL HISTORY: The patient was seen and examined . No acute event overnight. PERTINENT ROS: GENERAL: No fever/chills. RESPIRATORY: Negative for cough, wheezing or shortness of breath. CARDIOVASCULAR: Negative for chest pain or palpitations. GI: Negative for nausea, vomiting, Diarrhea, abdominal pain. : Negative for dysuria and hematuria MEDICATIONS: Current Facility-Administered Medications Medication Dose Route Frequency midodrine 5 mg tab(s) (PROAMITINE) 5 mg ORAL TID pantoprazole DR 40 mg tab(s) (PROTONIX) 40 mg ORAL DAILY (6 AM) latanoprost 0.005 % 1 drop (XALATAN) 1 drop BOTH EYES AT BEDTIME melatonin 9 mg tab(s) 9 mg ORAL AT BEDTIME PRN dextrose 40 % 15 g 15 g ORAL PRN Or glucagon 1 mg injection 1 mg INTRAMUSCULAR PRN Or dextrose 10% iv bolus 12.5 g INTRAVENOUS PRN NaCl 0.9% iv flush bag 20 mL INTRAVENOUS PRN acetaminophen 1,000 mg tab(s) (TYLENOL) 1,000 mg ORAL q 8 H ondansetron (PF) 4 mg injection (ZOFRAN) 4 mg INTRAVENOUS q 6 H PRN ipratropium-albuterol 3 mL nebulizer solution (DUONEB) 3 mL INHALATION QID apixaban 5 mg tab(s) (ELIQUIS) 5 mg ORAL BID traZODone 25 mg tab(s) (DESYREL) 25 mg ORAL AT BEDTIME ammonium lactate 12 % (LAC-HYDRIN) TOPICAL PRN bumetanide 2 mg tab(s) (BUMEX) 2 mg ORAL MO-WE-FR-ESPINOSA benzonatate 100 mg cap(s) (TESSALON PERLE) 100 mg ORAL TID sodium chloride 0.9 % (flush) 2-10 mL (BD POSIFLUSH) 2-10 mL INTRAVENOUS DIRECTED PRN sodium chloride 0.9 % (flush) 2-10 mL (BD POSIFLUSH) 2-10 mL INTRAVENOUS DIRECTED PRN HYDROcodone 5 mg - acetaminophen 325 mg tablet (NORCO) 1 tablet ORAL DAILY PRN HYDROcodone 5 mg - acetaminophen 325 mg tablet (NORCO) 1 tablet ORAL DAILY PRN HYDROcodone 5 mg - acetaminophen 325 mg tablet (NORCO) 1 tablet ORAL DAILY PRN Objective PHYSICAL EXAM: BP 126/64 Pulse 84 Temp 36.2 ?C (97.2 ?F) (Axillary) Resp 22 Wt 74.8 kg (165 lb) SpO2 98% BMI 23.68 kg/m? Intake/Output Summary (Last 24 hours) at 01/15/2025 0805 Last data filed at 01/15/2025 0255 Gross per 24 hour Intake 120 ml Output -- Net 120 ml GENERAL: NAD HEENT : NCAT, MMM and pink EYES: Conjunctiva -Pallor, Non icterus sclera. NECK: supple, No JVD, LUNGS: CTA without rales or wheeze, diminished breath sounds, CV: no murmurs, clicks, or gallops. ABDOMEN: soft, NT, BS normal EDEMA : no Lower extremity/ no Dependent edema DATA: Diagnostic tests reviewed for today's visit: Most recent labs and imaging results. Recent Labs 01/15/25 0607 01/14/25 1121 01/14/25 0553 01/13/25 0551 WBC 8.75 -- 11.11* 11.01* HB 12.6* -- 13.2 13.7 HCT 39.5 -- 39.9 41.0 PLT 146* -- 149* 160 NA -- 131* 129* 130* K -- 4.9 5.6* 6.0* CHLOR -- 89* 87* 89* CO2 -- 25 26 22 BUN -- 41* 36* 53* CREAT -- 4.42* 4.02* 5.26* GLUC -- 112* 124* 38* CA -- 10.8* 10.8* 10.8* Assessment/Plan 1. ESRD on hemodialysis 2. Anemia of chronic kidney disease 3. Secondary hyperparathyroidism 4. Hypertension but a history of intradialytic hypotension and on midodrine 5. Left hip pain and CT scan of pelcis : minimally displaced fracture of left sacrum with questionably minimally displaced fractures of the left superior pelvic ramus. 6. Chronic combined systolic and diastolic failure 7. Coronary disease status post CABG 7. Atrial fibrillation on Eliquis 8. Type 2 diabetes Plan of management Patient to get hemodialysis today. Patient with hyperkalemia and will proceed with hemodialysis today. Hold off on medical therapy including D50, insulin, calcium gluconate and Lokelma ----Hemodialysis for 3.5 hours, 3 L ultrafiltration --2K to begin with and 1K bath in last 1 hour tube Hemoglobin 11.7 no need for BETTIE therapy Iron study with transferrin saturation 6.1, will add ferritin to a.m. labs Continue BETTIE as needed and vitamin therapy with dialysis same as outpatient hemodialysis center. Continue on Bumex 2 mg once daily Continue on Renvela 1 tablet 3 times with each meal Continue midodrine 5 mg 3 times a day Hypercalcemia: PTH 254. Last phosphorus 5.9 Will give Zometa 3 mg IV x 1 dose Hypercalcemia workup ordered Normal [facility] IMMUNOFIXATION SCREEN, SERUM on 01-15-2025 MPA RESULT No M protein is identified. Normal No M protein is identified. [facility] Comment on above: Order Comment: Speci men Type: BLOOD SPECIMENOrdering Facility: [facility] Address: [address] [id number] Performed By: #### L [id number], [facility] ####[facility] LABCLIA [id number] [place] [address] [place] STAFF REVIEW ([facility]) Reviewed by Aries Young MD, Ph.D ([id number]) Normal [facility] Comment on above: Order Comment: Speci men Type: BLOOD SPECIMENOrdering Facility: [facility] Address: [address] [place] [address] Performed By: #### L [id number], [facility] ####[facility] LABCLIA [id number] [place] [address] [place] KAPPA/AN,FREE,SERon 2024 Immunoglobulin light chains.kappa.free (S) [Mass/Vol] 168.9 mg/L High 3.3-19.4 [facility] Comment on above: Order Comment: [facility] Type: BLOOD SPECIMENOrdering Facility: [facility] Address: [address] [place] [address] Result Comment: Rare ly, increased serum free light chains levels may not be detected or accurately quantified due to prozone phenomenon or in high viscosity samples using this immunoturbidimetric assay. Correlation with other laboratory results and clinical findings is recommended. The [place] Free Light Chain was performed using the Binding Site Optilite immunoturbidimetric method. Result obtained with different assay methods or kits cannot be used interchangeably. Performed By: #### K LFRS ####[facility] LABCLIA [id number] [place] [address] [place] Immunoglobulin light chains.kappa/Immunogl obulin light chains.lambda (S) [Mass ratio] 0.68 Normal 0.26-1.65 [facility] Comment on above: Order Comment: Speci men Type: BLOOD SPECIMENOrdering Facility: [facility] Address: [address] [place] [address] Performed By: #### K LFRS ####[facility] LABCLIA [id number] [place] [address] [place] Immunoglobulin light chains.lambda.free [Mass/Vol] 249.1 mg/L High 5.7-26.3 [facility] Comment on above: Order Comment: Speci men Type: BLOOD SPECIMENOrdering Facility: [facility] Address: [address] [place] [address] Result Comment: Rare ly, increased serum free light chains levels may not be detected or accurately quantified due to prozone phenomenon or in high viscosity samples using this immunoturbidimetric assay. Correlation with other laboratory results and clinical findings is recommended. The [place] Free Light Chain was performed using the Binding Site Optilite immunoturbidimetric method. Result obtained with different assay methods or kits cannot be used interchangeably. Performed By: #### K LFRS ####[facility] LABCLIA [id number] [place] [address] [place] Magnesium SerPl-mCncon 01-15 Magnesium [Mass/Vol] 2.5 mg/dL High 1.7-2.3 [facility] Comment on above: Order Comment: Speci men Type: BLOOD SPECIMENOrdering Facility: [facility] Address: [address] [place] [address] Performed By: #### 2 4321-2, 1751-7, 3084-1, 64184-6, 2777-1 ####[facility]ORATORYCLIA [id number] [address] [place] PROTEIN ELECTROPHORESIS SERU M WITH FLO (P)on 01-15-2025 Albumin [Mass/Vol] 3.26 g/dL Low 3.43-5.41 [facility] Comment on above: Order Comment: Speci men Type: BLOOD SPECIMENOrdering Facility: [facility] Address: [address] [place] [address] Performed By: #### L [id number], IFESC ####[facility] LABCLIA [id number] [place] [address] [place] Alpha 1 globulin Elph [Mass/Vol] 0.45 g/dL High 0.18-0.43 [facility] Comment on above: Order Comment: Speci men Type: BLOOD SPECIMENOrdering Facility: [facility] Address: [address] [place], [place] [address] Performed By: #### L [id number], IFESC ####[facility] LABCLIA [id number] [place] [address] [place] Alpha 2 globulin Elph [Mass/Vol] 0.64 g/dL Normal 0.42-0.98 [facility] Comment on above: Order Comment: Speci men Type: BLOOD SPECIMENOrdering Facility: [facility] Address: [address] [place] [address] Performed By: #### L [id number], IFESC ####[facility] LABCLIA [id number] [place] [address] [place] Beta globulin Elph [Mass/Vol] 0.80 g/dL Normal 0.61-1.17 [facility] Comment on above: Order Comment: Speci men Type: BLOOD SPECIMENOrdering Facility: [facility] Address: [address] [place] [address] Performed By: #### L [id number], IFESC ####[facility] LABCLIA [id number] [place] [address] [place] COMMENT (SERUM PROT ELECTRO) A reflex test for Monoclonal Protein analysis (immunofixation) has been ordered. Normal [facility] Comment on above: Order Comment: Speci men Type: BLOOD SPECIMENOrdering Facility: [facility] Address: [address] [place] [address] Performed By: #### L [id number], IFESC ####[facility] LABCLIA [id number] [address] [id number] [place] Gamma globulin Elph [Mass/Vol] 1.15 g/dL Normal 0.53-1.51 [facility] Comment on above: Order Comment: Speci men Type: BLOOD SPECIMENOrdering Facility: [facility] Address: [address] [place] [address] Performed By: #### L [id number], IFESC ####[facility] LABCLIA [id number] [address] M-PROTEIN LOCATION Normal [facility] Comment on above: Order Comment: Speci men Type: BLOOD SPECIMENOrdering Facility: [facility] Address: [address] [place] [address] Result Comment: Not Applicable. Performed By: #### L [id number], IFESC ####[facility] LABIA [id number] [address] Protein Fractions [Interp] No definitive M protein is identified on protein electrophoresis. Normal No definitive M protein is identified on protein electrophore sis. [facility] Comment on above: Order Comment: Speci men Type: BLOOD SPECIMENOrdering Facility: [facility] Address: [address] [place] [address] Performed By: #### L [id number], IFESC ####[facility] LABIA [id number] [address] [place] Protein.monoclonal Elph [Mass/Vol] 0.00 g/dL Normal <=0.00 [facility] Comment on above: Order Comment: Speci men Type: BLOOD SPECIMENOrdering Facility: [facility] Address: [address] [place] [address] Performed By: #### L [id number], IFESC ####[facility] LABIA [id number] [address] [place] SPE STAFF REVIEW Reviewed by Aries Young MD, Ph.D ([id number]) Normal [facility] Comment on above: Order Comment: Speci men Type: BLOOD SPECIMENOrdering Facility: [facility] Address: [address] [place] [address] Performed By: #### L [id number], IFESC ####[facility] LABCLIA [id number] [address] [place] [id number] [place] Phosphate SerPl-mCncon 01-15 Phosphate [Mass/Vol] 7.7 mg/dL High 2.7-4.8 [facility] Comment on above: Order Comment: Kelsi huff Type: BLOOD SPECIMENOrdering Facility: [facility] Address: [address] [place] [address] Performed By: #### 2 4321-2, 1751-7, 3084-1, 86199-7, 2777-1 ####[facility] LABORATORYCLIA [id number] [address] [place] Prot SerPl-mCncon 01-15-2025 Protein [Mass/Vol] 6.3 g/dL Normal 6.3-8.0 [facility] Comment on above: Order Comment: Samanthamarcellus huff Type: BLOOD SPECIMENOrdering Facility: [facility] Address: [address] [place] [address] Performed By: #### 2 885-2 ####[facility] LABCLIA [id number] [address] [facility] THERAPY NTon 01-15-2025 THERAPY NT HNO ID: [id number] Author: SONA HILL PT Service: Physical Therapy Author Type: Physical Therapist Type: Therapy (PT/OT/Speech/Resp) Filed: 01/15/2025 09:22 Note Text: -- Summary: PT missed visit -- PHYSICAL THERAPY MISSED VISIT SERVICE DATE: 01/15/2025 SERVICE TIME: 0910 ROOM: [place] [address] ([facility] [id number]) Patient not seen due to Test / Procedure. Patient at dialysis. Will approach as patient appropriate and available. SIGNATURE: Sona Hill PT PATIENT NAME: Mauri Quinones DATE: January 15, 2025 TIME: 9:21 AM Normal [facility] THERAPY NT HNO ID: [id number] Author: FLOYD RIVAS OTR/L Service: Occupational Therapy Author Type: Occupational Therapist Type: Therapy (PT/OT/Speech/Resp) Filed: 01/15/2025 09:10 Note Text: -- Summary: OT missed -- OCCUPATIONAL THERAPY MISSED VISIT SERVICE DATE: 01/15/2025 SERVICE TIME: 0900 ROOM: [place] [address] Patient not seen due to Test / Procedure. Patient preparing to be transferred to dialysis. Will re attempt as schedule permits. SIGNATURE: MITCHELL Raines PATIENT NAME: Mauri Quinones DATE: January 15, 2025 TIME: 9:10 AM [facility] Urate SerPl-mCncon 5 Urate [Mass/Vol] 5.3 mg/dL Normal 4.0-8.1 [facility] Comment on above: Order Comment: Speci men Type: BLOOD SPECIMENOrdering Facility: [facility] Address: [address] [address] Performed By: #### 2 4321-2, 1751-7, 3084-1, 01615-8, 2777-1 ####[facility] LABORATORYCLIA [id number] [place] [address] [place] Basic metabolic 2000 panelon 01-14-2025 Anion gap [Moles/Vol] 17 mmol/L High 8-15 [facility] Comment on above: Order Comment: Speci men Type: BLOOD SPECIMENOrdering Facility: [facility] Address: [address] [place] [address] Performed By: #### 2 4321-2 ####[facility] LABORATORYCLIA [id number] [place] [address] [place] Calcium [Mass/Vol] 10.8 mg/dL High 8.5-10.2 [facility] Comment on above: Order Comment: Speci men Type: BLOOD SPECIMENOrdering Facility: [facility] Address: [address] [place] [address] Performed By: #### 2 4321-2 ####[facility] LABORATORYCLIA [id number] [place] [address] [place] Chloride [Moles/Vol] 89 mmol/L Low 98-107 [facility] Comment on above: Order Comment: Speci men Type: BLOOD SPECIMENOrdering Facility: [facility] Address: [address] [place] [address] Performed By: #### 2 4321-2 ####[facility] LABORATORYCLIA [id number] [place] [address] [place] CO2 [Moles/Vol] 25 mmol/L Normal 22-30 [facility] Comment on above: Order Comment: Speci men Type: BLOOD SPECIMENOrdering Facility: [facility] Address: [address] [place] [address] Performed By: #### 2 4321-2 ####[facility] LABORATORYCLIA [id number] [place] [address] [place] Creatinine [Mass/Vol] 4.42 mg/dL High 0.73-1.22 [facility] Comment on above: Order Comment: Speci men Type: BLOOD SPECIMENOrdering Facility: [facility] Address: [address] [place] [address] Performed By: #### 2 4321-2 ####[facility] LABORATORYCLIA [id number] [place] [id number] [place] Creatinine and Glomerular filtration rate.predicted panel (S/P/Bld) 14 mL/min/1.73m??? Low >=60 [facility] Comment on above: Order Comment: Kelsi huff Type: BLOOD SPECIMENOrdering Facility: [facility] Address: [address] [place] [address] Result Comment: Caryl mated Glomerular Filtration Rate (eGFR) is calculated using the 2020 CKD-EPI creatinine equation. This equation utilizes serum creatinine, sex, and age as parameters. The creatinine assay has traceable calibration to isotope dilution-mass spectrometry. Refer to KDIGO guidelines for clinical interpretation. In patients with unstable renal function, e.g. those with acute kidney injury, the eGFR may not accurately reflect actual GFR. Performed By: #### 2 4321-2 ####[facility] LABORATORYCLIA [id number] [place] [address] [place] Glucose [Mass/Vol] 112 mg/dL High 74-99 [facility] Comment on above: Order Comment: Kelsi [facility] Type: BLOOD SPECIMENOrdering Facility: [facility] Address: [address] [place] [address] Result Comment: The [place] Diabetes Association (ADA) provides guidance for cutoff values for fasting glucose and random glucose. The ADA defines fasting as no caloric intake for at least 8 hours. Fasting plasma glucose results between 100 to 125 [...] Standards of Medical Care in Diabetes 2016, [place] [employer]. Diabetes Care. 2016.39(Suppl 1). Performed By: #### 2 4321-2 ####[facility] LABORATORYCLIA [id number] [place] [address] [place] Potassium [Moles/Vol] 4.9 mmol/L Normal 3.7-5.1 [facility] Comment on above: Order Comment: Speci men Type: BLOOD SPECIMENOrdering Facility: [facility] Address: [address] [place] [address] Performed By: #### 2 4321-2 ####[facility] LABORATORYCLIA [id number] [place] [address] [place] Sodium [Moles/Vol] 131 mmol/L Low 136-144 [facility] Comment on above: Order Comment: Speci men Type: BLOOD SPECIMENOrdering Facility: [facility] Address: [address] [place] [address] Performed By: #### 2 4321-2 ####[facility] LABORATORYCLIA [id number] [place] [address] [place] Urea nitrogen [Mass/Vol] 41 mg/dL High 9-24 [facility] Comment on above: Order Comment: Speci men Type: BLOOD SPECIMENOrdering Facility: [facility] Address: [address] [place] [address] Performed By: #### 2 4321-2 ####[facility] LABORATORYCLIA [id number] [place] [address] [place] Anion gap [Moles/Vol] 16 mmol/L High 8-15 [facility] Comment on above: Order Comment: Speci men Type: BLOOD SPECIMENOrdering Facility: [facility] Address: [address] [place] [address] Performed By: #### 2 4321-2 ####[facility] LABORATORYCLIA [id number] [place] [address] [place] Calcium [Mass/Vol] 10.8 mg/dL High 8.5-10.2 [facility] Comment on above: Order Comment: Speci men Type: BLOOD SPECIMENOrdering Facility: [facility] Address: [address] [place] [address] Performed By: #### 2 4321-2 ####[facility] LABORATORYCLIA [id number] [place] [address] [place] Chloride [Moles/Vol] 87 mmol/L Low 98-107 [facility] Comment on above: Order Comment: Speci men Type: BLOOD SPECIMENOrdering Facility: [facility] Address: [address] [place] [address] Performed By: #### 2 4321-2 ####[facility] LABORATORYCLIA [id number] [place] [address] [place] CO2 [Moles/Vol] 26 mmol/L Normal 22-30 [facility] Comment on above: Order Comment: Speci men Type: BLOOD SPECIMENOrdering Facility: [facility] Address: [address] [place] [address] Performed By: #### 2 4321-2 ####ADAM LABORATORYCLIA [id number] [address] [place] Creatinine [Mass/Vol] 4.02 mg/dL High 0.73-1.22 [facility] Comment on above: Order Comment: Kelsi huff Type: BLOOD SPECIMENOrdering Facility: [facility] Address: [address] [place] [address] Performed By: #### 2 4321-2 ####ADAM LABORATORYCLIA [id number] [address] Creatinine and Glomerular filtration rate.predicted panel (S/P/Bld) 16 mL/min/1.73m??? Low >=60 [facility] Comment on above: Order Comment: Kelsi huff Type: BLOOD SPECIMENOrdering Facility: [facility] Address: [address] [place] [address] Result Comment: Caryl mated Glomerular Filtration Rate (eGFR) is calculated using the 2020 CKD-EPI creatinine equation. This equation utilizes serum creatinine, sex, and age as parameters. The creatinine assay has traceable calibration to isotope dilution-mass spectrometry. Refer to KDIGO guidelines for clinical interpretation. In patients with unstable renal function, e.g. those with acute kidney injury, the eGFR may not accurately reflect actual GFR. Performed By: #### 2 4321-2 ####ADAM LABORATORYCLIA [id number] [address] STATES [facility] Glucose [Mass/Vol] 124 mg/dL High 74-99 [facility] Comment on above: Order Comment: Kelsi huff Type: BLOOD SPECIMENOrdering Facility: [facility] Address: [address] [place] [address] Result Comment: The [place] Diabetes [employer] (ADA) provides guidance for cutoff values for fasting glucose and random glucose. The ADA defines fasting as no caloric intake for at least 8 hours. Fasting plasma glucose results between 100 to 125 [...] Standards of Medical Care in Diabetes 2016, [place] [employer]. Diabetes Care. 2016.39(Suppl 1). Performed By: #### 2 4321-2 ####ADAM LABORATORYCLIA [id number] [place] [address] [place] Potassium [Moles/Vol] 5.6 mmol/L High 3.7-5.1 [facility] Comment on above: Order Comment: Speci men Type: BLOOD SPECIMENOrdering Facility: [facility] Address: [address] [place] [address] Performed By: #### 2 4321-2 ####ADAM LABORATORYCLIA [id number] [place] [address] [place] Sodium [Moles/Vol] 129 mmol/L Low 136-144 [facility] Comment on above: Order Comment: Speci men Type: BLOOD SPECIMENOrdering Facility: [facility] Address: [address] [place] [address] Performed By: #### 2 4321-2 ####ADAM LABORATORYCLIA [id number] [place] [address] [place] Urea nitrogen [Mass/Vol] 36 mg/dL High 9-24 [facility] Comment on above: Order Comment: Speci men Type: BLOOD SPECIMENOrdering Facility: [facility] Address: [address] [place] [address] Performed By: #### 2 4321-2 ####ADAM LABORATORYCLIA [id number] [place] [address] [place] CBC panel Auto (Bld)on 01-14 Erythrocyte distribution width (RBC) [Ratio] 16.2 % High 11.5-15.0 [facility] Comment on above: Order Comment: Speci men Type: BLOOD SPECIMENOrdering Facility: [facility] Address: [address] [place] [address] Performed By: #### 5 8410-2 ####ADAM LABORATORYCLIA [id number] [address] Hematocrit (Bld) [Volume fraction] 39.9 % Normal 39.0-51.0 [facility] Comment on above: Order Comment: Speci men Type: BLOOD SPECIMENOrdering Facility: [facility] Address: [address] [place] [address] Performed By: #### 5 8410-2 ####ADAM LABORATORYCLIA [id number] [address] OF [facility] Hemoglobin (Bld) [Mass/Vol] 13.2 g/dL Normal 13.0-17.0 [facility] Comment on above: Order Comment: Speci men Type: BLOOD SPECIMENOrdering Facility: [facility] Address: [address] [place] [address] Performed By: #### 5 8410-2 ####ADAM LABORATORYCLIA [id number] [address] MCH (RBC) [Entitic mass] 31.7 pg Normal 26.0-34.0 [facility] Comment on above: Order Comment: Speci men Type: BLOOD SPECIMENOrdering Facility: [facility] Address: [address] [place] [address] Performed By: #### 5 8410-2 ####ADAM LABORATORYCLIA [id number] [address] MCHC (RBC) [Mass/Vol] 33.1 g/dL Normal 30.5-36.0 [facility] Comment on above: Order Comment: Speci men Type: BLOOD SPECIMENOrdering Facility: [facility] Address: [address] [place] [address] Performed By: #### 5 8410-2 ####ADAM LABORATORYCLIA [id number] [address] [place] MCV (RBC) [Entitic vol] 95.9 fL Normal 80.0-100.0 [facility] Comment on above: Order Comment: Speci men Type: BLOOD SPECIMENOrdering Facility: [facility] Address: [address] [place] [address] Performed By: #### 5 8410-2 ####ADAM LABORATORYCLIA [id number] [place] [address] [place] Nucleated RBC (Bld) [#/Vol] 10*3/uL Normal <0.01 [facility] Comment on above: Order Comment: Speci men Type: BLOOD SPECIMENOrdering Facility: [facility] Address: [address] [place] [address] Performed By: #### 5 8410-2 ####ADAM LABORATORYCLIA [id number] [address] [place] Platelet mean volume (Bld) [Entitic vol] 10.5 fL Normal 9.0-12.7 [facility] Comment on above: Order Comment: Speci men Type: BLOOD SPECIMENOrdering Facility: [facility] Address: [address] [place] [address] Performed By: #### 5 8410-2 ####ADAM LABORATORYCLIA [id number] [address] [place] Platelets (Bld) [#/Vol] 149 10*3/uL Low 150-400 [facility] Comment on above: Order Comment: Speci men Type: BLOOD SPECIMENOrdering Facility: [facility] Address: [address] [place] [address] Performed By: #### 5 8410-2 ####ADAM LABORATORYCLIA [id number] [address] [place] RBC (Bld) [#/Vol] 4.16 10*6/uL Low 4.20-6.00 [facility] Comment on above: Order Comment: Speci men Type: BLOOD SPECIMENOrdering Facility: [facility] Address: [address] [place] [address] Performed By: #### 5 8410-2 ####[facility] LABORATORYCLIA [id number] [place] [address] [facility] [place] WBC (Bld) [#/Vol] 11.11 10*3/uL High 3.70-11.00 [facility] Comment on above: Order Comment: Speci men Type: BLOOD SPECIMENOrdering Facility: [facility] Address: [address] [place] [address] Performed By: #### 5 8410-2 ####[facility] LABORATORYCLIA [id number] [place] [address] [facility] CONSULT PROGon 01-14-2025 CONSULT PROG HNO ID: [id number] Author: JOSAFAT LOREDO MD Service: Nephrology Author Type: Physician Type: Consult Progress Note Filed: 01/14/2025 08:26 Note Text: NEPHROLOGY CONSULT PROGRESS NOTE Subjective INTERVAL HISTORY: The patient was seen and examined . No acute event overnight. PERTINENT ROS: GENERAL: No fever/chills. RESPIRATORY: Negative for cough, wheezing or shortness of breath. CARDIOVASCULAR: Negative for chest pain or palpitations. GI: Negative for nausea, vomiting, Diarrhea, abdominal pain. : Negative for dysuria and hematuria MEDICATIONS: Current Facility-Administered Medications Medication Dose Route Frequency atorvastatin 40 mg tab(s) (LIPITOR) 40 mg ORAL AT BEDTIME midodrine 5 mg tab(s) (PROAMITINE) 5 mg ORAL TID pantoprazole DR 40 mg tab(s) (PROTONIX) 40 mg ORAL DAILY (6 AM) latanoprost 0.005 % 1 drop (XALATAN) 1 drop BOTH EYES AT BEDTIME melatonin 9 mg tab(s) 9 mg ORAL AT BEDTIME PRN dextrose 40 % 15 g 15 g ORAL PRN Or glucagon 1 mg injection 1 mg INTRAMUSCULAR PRN Or dextrose 10% iv bolus 12.5 g INTRAVENOUS PRN NaCl 0.9% iv flush bag 20 mL INTRAVENOUS PRN acetaminophen 1,000 mg tab(s) (TYLENOL) 1,000 mg ORAL q 8 H ondansetron (PF) 4 mg injection (ZOFRAN) 4 mg INTRAVENOUS q 6 H PRN ipratropium-albuterol 3 mL nebulizer solution (DUONEB) 3 mL INHALATION QID apixaban 5 mg tab(s) (ELIQUIS) 5 mg ORAL BID traZODone 25 mg tab(s) (DESYREL) 25 mg ORAL AT BEDTIME diazePAM 5 mg tab(s) (VALIUM) 5 mg ORAL DAILY PRN hydrOXYzine HCl 25 mg tab(s) (ATARAX) 25 mg ORAL q 6 H PRN ammonium lactate 12 % (LAC-HYDRIN) TOPICAL PRN bumetanide 2 mg tab(s) (BUMEX) 2 mg ORAL MO-WE-FR-ESPINOSA benzonatate 100 mg cap(s) (TESSALON PERLE) 100 mg ORAL TID cyclobenzaprine 5 mg tab(s) (FLEXERIL) 5 mg ORAL TID sodium chloride 0.9 % (flush) 2-10 mL (BD POSIFLUSH) 2-10 mL INTRAVENOUS DIRECTED PRN sodium chloride 0.9 % (flush) 2-10 mL (BD POSIFLUSH) 2-10 mL INTRAVENOUS DIRECTED PRN insulin lispro injection (rapid acting) (ADMElog) SUBCUTANEOUS w MEALS insulin lispro injection (rapid acting) (ADMElog) SUBCUTANEOUS AT BEDTIME HYDROcodone 5 mg - acetaminophen 325 mg tablet (NORCO) 2 tablet ORAL DAILY PRN HYDROcodone 5 mg - acetaminophen 325 mg tablet (NORCO) 2 tablet ORAL DAILY PRN HYDROcodone 5 mg - acetaminophen 325 mg tablet (NORCO) 2 tablet ORAL DAILY PRN sodium zirconium cyclosilicate 10 g oral packet (LOKELMA) 10 g ORAL ONCE Objective PHYSICAL EXAM: BP 107/51 Pulse 94 Temp 36.8 ?C (98.2 ?F) (Oral) Resp 20 Wt 74.8 kg (165 lb) SpO2 (!) 88% BMI 23.68 kg/m? Intake/Output Summary (Last 24 hours) at 01/14/2025 0823 Last data filed at 01/13/2025 1756 Gross per 24 hour Intake 480 ml Output -- Net 480 ml GENERAL: NAD HEENT : NCAT, MMM and pink EYES: Conjunctiva -Pallor, Non icterus sclera. NECK: supple, No JVD, LUNGS: CTA without rales or wheeze, diminished breath sounds, CV: no murmurs, clicks, or gallops. ABDOMEN: soft, NT, BS normal EDEMA : no Lower extremity/ no Dependent edema DATA: Diagnostic tests reviewed for today's visit: Most recent labs and imaging results. Recent Labs 01/14/25 0553 01/13/25 0551 01/12/25 0631 WBC 11.11* 11.01* 6.05 HB 13.2 13.7 11.6* HCT 39.9 41.0 35.3* PLT 149* 160 137* NA 129* 130* 133* K 5.6* 6.0* 5.0 CHLOR 87* 89* 93* CO2 26 22 28 BUN 36* 53* 43* CREAT 4.02* 5.26* 4.52* GLUC 124* 38* 69* CA 10.8* 10.8* 10.2 Assessment/Plan 1. ESRD on hemodialysis 2. Anemia of chronic kidney disease 3. Secondary hyperparathyroidism 4. Hypertension but a history of intradialytic hypotension and on midodrine 5. Left hip pain and CT scan of pelcis : minimally displaced fracture of left sacrum with questionably minimally displaced fractures of the left superior pelvic ramus. 6. Chronic combined systolic and diastolic failure 7. Coronary disease status post CABG 7. Atrial fibrillation on Eliquis 8. Type 2 diabetes Plan of management --Patient with hypokalemia and also with A-fib with RVR. Also had EKG changes yesterday --Will give D50, insulin, calcium gluconate --Will give Lokelma 10 g p.o. x 1 dose stat --Will check EKG stat --Will check BMP at 11 AM --Will arrange for hemodialysis as needed if patient remains significantly hypokalemic despite medical therapy ----Hemodialysis for 3.5 hours, 3 L ultrafiltration 2K Potassium bath --Repeat EKG and BMP after dialysis Hemoglobin 11.7 no need for BETTIE therapy Iron study with transferrin saturation 6.1, will add ferritin to a.m. labs Continue BETTIE as needed and vitamin therapy with dialysis same as outpatient hemodialysis center. Continue on Bumex 2 mg once daily Continue on Renvela 1 tablet 3 times with each meal Continue midodrine 5 mg 3 times a day [facility] ECG COMPLETEon 01-14-2025 ECG COMPLETE Ventricular Rate : 9 0 BPM QRS Duration : 160 ms Q-T Interval : 406 ms QTC Calculation(Bazett) : 496 ms Calculated R Mullen : -89 degrees Calculated T Mullen : 105 degrees ATRIAL FIBRILLATION RIGHT BUNDLE BRANCH BLOCK LEFT ANTERIOR FASCICULAR BLOCK BIFASCICULAR BLOCK ABNORMAL ECG WHEN COMPARED WITH ECG OF 13-Jan-2025 10:17, NO SIGNIFICANT CHANGE WAS FOUND Confirmed by RUTH ANN CLAYTON MD ([id number]) on 01/14/2025 1:45:12 PM NAME : MAURI QUINONES PID : [id number] : 1955 Gender : Male Race : ORD : [id number] Procedure Date : Jan 14 2025 09:34:09 Edit Date : Jan 14 2025 13:45:16 Diagnosis: ATRIAL FIBRILLATION RIGHT BUNDLE BRANCH BLOCK LEFT ANTERIOR FASCICULAR BLOCK BIFASCICULAR BLOCK ABNORMAL ECG WHEN COMPARED WITH ECG OF 13-Jan-2025 10:17, NO SIGNIFICANT CHANGE WAS FOUND Confirmed by RUTH ANN CLAYTON MD ([id number]) on 01/14/2025 1:45:12 PM Test Reason : Arrhythmia Location : 3 : 2N 0256 Overread By : RUTH ANN CLAYTON MD Edited By : RUTH ANN CLAYTON MD Referred By : MARTÍN ROMANO Acquired by : [id number], [facility] THERAPY NTon 01-14-2025 THERAPY NT HNO ID: [id number] Author: SONA HILL PT Service: Physical Therapy Author Type: Physical Therapist Type: Therapy (PT/OT/Speech/Resp) Filed: 01/14/2025 15:08 Note Text: -- Summary: PT treatment -- Physical Therapy Treatment Summary SERVICE DATE: 01/14/2025 SERVICE TIME: 1420 to 1443 ROOM: [id number] PT 6 Clicks Score: 8 DISCHARGE RECOMMENDATIONS Subacute/SNF Recommended Discharge Disposition Comments: Pt is currently performing functional mobility below PLOF and would benefit from continued skilled PT to reduce risk of falls and rehospitalization. Recommended Discharge Disposition Due to: Functional deficits requiring ongoing therapy service prior to discharge home., Anticipated community discharge, Balance deficits, Functional status decline, Requires multiple therapy disciplines Anticipated Discharge Needs: Physical Assist at Home, Supervision at Home Physical Assist at Home for: Transfers, Finances, Ambulation, Cleaning, Laundry, Medication Management, Meals, Safety, Self Care, Shopping, Transportation, Wheelchair Mobility Supervision at Home due to: Decreased safety awareness, Impaired cognition Recommended Discharge Equipment: No equipment needs anticipated ASSESSMENT Response to Therapy Interventions: Low Activity Tolerance, Pain, Requires Encouragement to Complete Activities, Requires Additional Time to Complete Activities, Slow Progression with Functional Activities/Skills, Needs Frequent Redirection or Reinstruction, Multiple Ongoing Medical Issues patient with increased assist for bed mobility with noted pain. decreased mobility tolerance and sitting balance and therefore not progressed OOB this date/session. patienta able to progress to standing with PT 01/12 and will maintain OOB goals. decreased participation and progression and decreased frequencing to 4x/week. drowsy with heavy cues for level of alertness. PRECAUTIONS Bed/Chair Alarm, Fall Risk, Lines/Tubes/Drains, Weight Bearing Restrictions left limb alert Left Lower Extremity Weight Bearing Status: WBAT CURRENT HOSPITAL COURSE Right KEMAR and Right TKA who presents with fall and left hip pain. He uses a wheelchair at baseline and was transferring out of the shower when he had a fall to the ground. He had left hip pain that was severe and presented to the ED. He continues to have pain in the left hip. x: Fractured pelvis (HCC), Left hip pain. ortho consult 01/08. cleared for mobility with WBAT left LE. rapid response 01/13 due to severe symptomatic hypoglycemia without adequate IV access. Relevant Past Medical History: DM, ankylosing spondylitis, osteoarthritis, history of fracture multiple bones, cellulitis, gout, CAD,NSTEMI, CHF, CKD, CABG, ischemic cardiomyopathy, ESRD, right TKA, right ORIF/post fracture, right toe surgery HOME LIVING Patient Lives With: Spouse Assistance Available: 24-Hour Entry To Home: No Stairs Number Of Stairs To Bed/Bath: 0 Tub/Shower Type: WIS with small threshold, shower chair + grab bars Laundry: Spouse completes Equipment Owned: Wheelchair- Manual, Shower Chair, Grab Bars- Toilet, Grab Bars- Shower, Commode- Raised, Walker- Wheeled PRIOR FUNCTIONAL LEVEL History of Falls, Poor Historian, Required Assistance Assistance Required With: Cleaning, Laundry, Meals, Medication Management, Transportation, Wheelchair Mobility patient poor historian - independently mobilizes in w/c, and uses FWW at times. ind with ADL and pt reports spouse completes IADLs including managing pt's meds, fall leading to current admission possible falling out of shower. patient unable to describe fall history. sleeps in recliner. dialysis T, Th and Sat per RN SUBJECTIVE patient agreeable to minimal session with education/encouragement and cleared by RN. patient notes that he wants to mobilize by himself however limted by pain. denies lightheadedess/dizziness/n ausat THERAPY DIAGNOSIS Reduced mobility-other TREATMENT INTERVENTIONS Therapeutic Activity (91691) Timed Code Treatment (minutes): 23 Skilled Treatment Time (minutes): 23 Therapeutic Activity (07983) Treatment Minutes: 23 $ Therapeutic Activity (12636) Billed Units: 2 units TRAINING AND EDUCATION PROVIDED Anatomy and Impact on Deficits, Bed Mobility, Benefits of In-Hospital Mobility, Discharge Planning, Expected Functional Level, Falls Prevention, Equipment, Positioning, Precautions/Restrictions, Role of Physical Therapy, Sitting Balance THERAPEUTIC SKILLS USED Activity Dosing, Assessment of Tolerance Including Vitals Response to Activity, Cuing Verbal, Cues for Sequencing/Proper Technique for Activity, Management of Critical Lines, Tubes and/or Drains, Muscle Activation Facilitation, Physical Assist, Postural Alignment Correction FUNCTIONAL STATU (more content not included)... [facility] ALLIED HEALTH 01-13-2025 ALLIED HEALTH HNO ID: [id number] Author: JOCELIN CARDOZA CT Service: Radiology Author Type: Technologist Type: Allied Health Filed: 01/13/2025 17:17 Note Text: Radiology Service Progress Note PATIENT NAME: Mauri Quinones DATE OF SERVICE: January 13, 2025 TIME: 5:17 PM PATIENT IDENTITY VERIFICATION COMPLETED USING TWO (2) IDENTIFIERS: Name and Date of confirmed by patient verbally. FALL SCREENING: Has the patient had 2 falls in the last year or 1 fall with injury or currently using an Ambulatory Assistive Device (Walker, Cane, Wheelchair, Crutches, etc.)? Inpatient: Screened on floor PATIENT GENDER DATA: Assigned male at PATIENT RELEVANT IMPLANT DATA REVIEWED: Not Applicable PATIENT PRESENTS WITH AN IMPLANTABLE OR ATTACHED EDGE BLACKER: No RADIOLOGY DEPARTMENT: CT; Exam(s) Completed: Chest PERIPHERAL IV DATA: Inpatient: see LDA documentation SIGNED BY: WILLIAMS Eugene January 13, 2025 5:17 PM [facility] HNO ID: [id number] Author: SILVIANO WOOD Tech Service: Radiology Author Type: Graduate Nurse Type: Allied Health Filed: 01/13/2025 07:38 Note Text: Radiology Service Progress Note PATIENT NAME: Mauri Quinones DATE OF SERVICE: January 13, 2025 TIME: 7:38 AM PATIENT IDENTITY VERIFICATION COMPLETED USING TWO (2) IDENTIFIERS: Name and Date of confirmed by identification band. FALL SCREENING: Has the patient had 2 falls in the last year or 1 fall with injury or currently using an Ambulatory Assistive Device (Walker, Cane, Wheelchair, Crutches, etc.)? Inpatient: Screened on floor PATIENT GENDER DATA: Assigned male at PATIENT RELEVANT IMPLANT DATA REVIEWED: Not Applicable PATIENT PRESENTS WITH AN IMPLANTABLE OR ATTACHED EDGE BLACKER: No RADIOLOGY DEPARTMENT: General X-ray: Exam(s) Completed: Chest X-Ray PERIPHERAL IV DATA: Not applicable SIGNED BY: Robert Huffman January 13, 2025 7:38 AM [facility] ARTERIAL BLOOD GASESon 01-13 Base deficit (BldA) [Moles/Vol] -3 mmol/L Low -2-0 [facility] Comment on above: Order Comment: Kelsi huff Type: ARTERIAL BLOOD SPECIMENOrdering Facility: [facility] Address: [address] [place] [address] Performed By: #### A LLBG ####[facility] RESPIRATORYCLIA [id number] RESPIRAT[facility] [id number] [place] [id number] Carboxyhemoglobin (BldA) [Mass fraction] 1.8 % Normal 0.0-2.0 [facility] Comment on above: Order Comment: Kelsi huff Type: ARTERIAL BLOOD SPECIMENOrdering Facility: [facility] Address: [address] [place] [address] Result Comment: Carb oxyhemoglobin Reference Range for Smokers: 2.0-8.0% Performed By: #### A LLBG ####ADAM RESPIRATORYCLIA [id number] [facility] RESPIRATORY [id number] [address] [address] CO2 (Bld) [Partial pressure] 37 mm Hg Normal 36-46 [facility] Comment on above: Order Comment: Speci men Type: ARTERIAL BLOOD SPECIMENOrdering Facility: [facility] Address: [address] [place] [address] Performed By: #### A LLBG ####[facility] RESPIRATORYIA [id number] [facility]OSP[facility] RESPIRATORY [id number] [address] [address] CO2 adjusted to patient's actual temperature (Bld) [Partial pressure] Normal [facility] Comment on above: Order Comment: Speci men Type: ARTERIAL BLOOD SPECIMENOrdering Facility: [facility] Address: [address] [place] [address] Performed By: #### A LLBG ####[facility] RESPIRATORYNORTHWESTERN MED[facility] [id number] [facility] RESPIRATORY [id number] [address] [address] HCO3 (Bld) [Moles/Vol] 22 mmol/L Normal 22-26 [facility] Comment on above: Order Comment: Speci men Type: ARTERIAL BLOOD SPECIMENOrdering Facility: [facility] Address: [address] [place] [address] Performed By: #### A LLBG ####ADAM RESPIRATORYCLIA [id number] [facility] RESPIRATORY [id number] [address] [address] Hemoglobin (Bld) [Mass/Vol] 14.1 g/dL Normal 13.0-17.0 [facility] Comment on above: Order Comment: Speci men Type: ARTERIAL BLOOD SPECIMENOrdering Facility: [facility] Address: [address] [place] [address] Performed By: #### A LLBG ####ADAM RESPIRATORYIA [id number] [facility]OSP[facility] RESPIRATORY [id number] [address] [address] Lactate [Moles/Vol] 1.8 mmol/L Normal 0.5-2.2 [facility] Comment on above: Order Comment: Speci men Type: ARTERIAL BLOOD SPECIMENOrdering Facility: [facility] Address: [address] [place] [address] Performed By: #### A LLBG ####[facility] RESPIRATORYIA [id number] [facility] RESPIRATORY [id number] [address] [address] LITERS 2 Liters/min [facility] Comment on above: Order Comment: Speci men Type: ARTERIAL BLOOD SPECIMENOrdering Facility: [facility] Address: [address] [place] [address] Performed By: #### A LLBG ####[facility] RESPIRATORYKELSEY VILLE [id number] [place] [address] RESPIRATORY [id number] [place] 807110 Methemoglobin (Bld) [Mass fraction] % Normal 0.0-1.5 [facility] Comment on above: Order Comment: Speci men Type: ARTERIAL BLOOD SPECIMENOrdering Facility: [facility] Address: [address] [place] [address] Performed By: #### A LLBG ####[place] [id number] [place] [address] RESPIRATORY [id number] [address] O2 THERAPY NC = Nasal Cannula Normal [facility] Comment on above: Order Comment: Speci men Type: ARTERIAL BLOOD SPECIMENOrdering Facility: [facility] Address: [address] [place] [address] Performed By: #### A LLBG ####[facility]PIRATORYNORTHWESTERN MED[facility] [id number] [facility]OS[facility] RESPIRATORY [id number] [address] [address] Oxygen (Bld) [Partial pressure] 70 mm Hg Low 85-95 [facility] Comment on above: Order Comment: Speci men Type: ARTERIAL BLOOD SPECIMENOrdering Facility: [facility] Address: [address] [place] [address] Performed By: #### A LLBG ####[facility] RESPIRATORYCLIA [id number] [facility]OSP[facility] RESPIRATORY [id number] [address] [address] Oxygen adjusted to patient's actual temperature (Bld) [Partial pressure] Normal [facility] Comment on above: Order Comment: Speci men Type: ARTERIAL BLOOD SPECIMENOrdering Facility: [facility] Address: [address] [place] [address] Performed By: #### A LLBG ####[facility] RESPIRATORYNORTHWESTERN MEDICAL [facility]ENTER [id number] [facility] RESPIRATORY [id number] [address] Oxyhemoglobin (BldA) [Mass fraction] 94 % Low 95-98 [facility] Comment on above: Order Comment: Speci men Type: ARTERIAL BLOOD SPECIMENOrdering Facility: [facility] Address: [address] [place] [address] Performed By: #### A LLBG ####[facility] [id number] [facility]AT[facility] [id number] [address] [address] pH (Bld) 7.39 [pH] Normal 7.35-7.45 [facility] Comment on above: Order Comment: Speci men Type: ARTERIAL BLOOD SPECIMENOrdering Facility: [facility] Address: [address] [place] [address] Performed By: #### A LLBG ####[facility] [id number] [facility] RESPIRATORY [id number] [address] [address] pH adjusted to patient's actual temperature (Bld) Normal [facility] Comment on above: Order Comment: Speci men Type: ARTERIAL BLOOD SPECIMENOrdering Facility: [facility] Address: [address] [place] [address] Performed By: #### A LLBG ####[facility] [id number] [facility] RESPIRAT[facility] [id number] [address] [address] Potassium [Moles/Vol] 6.0 mmol/L High 3.5-5.0 [facility] Comment on above: Order Comment: Speci men Type: ARTERIAL BLOOD SPECIMENOrdering Facility: [facility] Address: [address] [place] [address] Performed By: #### A LLBG ####[facility]PIRATORYCLIA [id number] [facility]IRAT[facility] [id number] [place] [id number] Basic metabolic 2000 panelon 01-13-2025 Anion gap [Moles/Vol] 19 mmol/L High 8-15 [facility] Comment on above: Order Comment: Speci men Type: BLOOD SPECIMENOrdering Facility: [facility] Address: [address] [place] [address] [place] [address] Performed By: #### 2 4321-2 ####[facility]ORY[facility] [id number] [place] [address] [place] Calcium [Mass/Vol] 10.8 mg/dL High 8.5-10.2 [facility] Comment on above: Order Comment: Speci men Type: BLOOD SPECIMENOrdering Facility: [facility] Address: [address] [place] [address] Performed By: #### 2 4321-2 ####[facility]ORATORYCLIA [id number] [place] [address] [place] Chloride [Moles/Vol] 89 mmol/L Low 98-107 [facility] Comment on above: Order Comment: Speci men Type: BLOOD SPECIMENOrdering Facility: [facility] Address: [address] [place] [address] [place] [address] Performed By: #### 2 4321-2 ####[facility] LABORATORYCLIA [id number] [place] [id number] [place] CO2 [Moles/Vol] 22 mmol/L Normal 22-30 [facility] Comment on above: Order Comment: Speci men Type: BLOOD SPECIMENOrdering Facility: [facility] Address: [address] [place] [address] Performed By: #### 2 4321-2 ####[facility] LABORATORYCLIA [id number] [place] [address] [place] Creatinine [Mass/Vol] 5.26 mg/dL High 0.73-1.22 [facility] Comment on above: Order Comment: Speci men Type: BLOOD SPECIMENOrdering Facility: [facility] Address: [address] [place] [address] Performed By: #### 2 4321-2 ####[facility] LABORATORYCLIA [id number] [place] [id number] [facility] Creatinine and Glomerular filtration rate.predicted panel (S/P/Bld) 11 mL/min/1.73m??? Low >=60 [facility] Comment on above: Order Comment: Kelsi huff Type: BLOOD SPECIMENOrdering Facility: [facility] Address: [address] [place] [address] Result Comment: Caryl mated Glomerular Filtration Rate (eGFR) is calculated using the 2020 CKD-EPI creatinine equation. This equation utilizes serum creatinine, sex, and age as parameters. The creatinine assay has traceable calibration to isotope dilution-mass spectrometry. Refer to KDIGO guidelines for clinical interpretation. In patients with unstable renal function, e.g. those with acute kidney injury, the eGFR may not accurately reflect actual GFR. Performed By: #### 2 4321-2 ####[facility] LABORATORYCLIA [id number] [place] [id number] [place] Glucose [Mass/Vol] 38 mg/dL Critically low 74-99 [facility] Comment on above: Order Comment: Kelsi huff Type: BLOOD SPECIMENOrdering Facility: [facility] Address: [address] [place] [address] Result Comment: The [place] [employer] (ADA) provides guidance for cutoff values for fasting glucose and random glucose. The ADA defines fasting as no caloric intake for at least 8 hours. Fasting plasma glucose results between 100 to 125 [...] Standards of Medical Care in Diabetes 2016, [place] [employer]. Diabetes Care. 2016.39(Suppl 1). Performed By: #### 2 4321-2 ####[facility] LABORATORYCLIA [id number] [address] Potassium [Moles/Vol] 6.0 mmol/L High 3.7-5.1 [facility] Comment on above: Order Comment: Speci men Type: BLOOD SPECIMENOrdering Facility: [facility] Address: [address] [place] [address] Performed By: #### 2 4321-2 ####[facility] LABORATORYCLIA [id number] [address] Sodium [Moles/Vol] 130 mmol/L Low 136-144 [facility] Comment on above: Order Comment: Speci men Type: BLOOD SPECIMENOrdering Facility: [facility] Address: [address] [place] [address] Performed By: #### 2 4321-2 ####[facility] LABORATORYCLIA [id number] [address] Urea nitrogen [Mass/Vol] 53 mg/dL High 9-24 [facility] Comment on above: Order Comment: Speci men Type: BLOOD SPECIMENOrdering Facility: [facility] Address: [address] [place] [address] Performed By: #### 2 4321-2 ####[facility] LABORATORYCLIA [id number] [address] CBC panel Auto (Bld)on 01-13 Erythrocyte distribution width (RBC) [Ratio] 16.0 % High 11.5-15.0 [facility] Comment on above: Order Comment: Speci men Type: BLOOD SPECIMENOrdering Facility: [facility] Address: [address] [place] [address] Performed By: #### 5 8410-2 ####[facility] LABORATORYCLIA [id number] [address] Hematocrit (Bld) [Volume fraction] 41.0 % Normal 39.0-51.0 [facility] Comment on above: Order Comment: Speci men Type: BLOOD SPECIMENOrdering Facility: [facility] Address: [address] [place] [address] Performed By: #### 5 8410-2 ####[facility] LABORATORYCLIA [id number] [address] Hemoglobin (Bld) [Mass/Vol] 13.7 g/dL Normal 13.0-17.0 [facility] Comment on above: Order Comment: Speci men Type: BLOOD SPECIMENOrdering Facility: [facility] Address: [address] [place] [address] Performed By: #### 5 8410-2 ####[facility] LABORATORYCLIA [id number] [address] MCH (RBC) [Entitic mass] 31.7 pg Normal 26.0-34.0 [facility] Comment on above: Order Comment: Speci men Type: BLOOD SPECIMENOrdering Facility: [facility] Address: [address] [place] [address] Performed By: #### 5 8410-2 ####[facility] LABORATORYCLIA [id number] [address] MCHC (RBC) [Mass/Vol] 33.4 g/dL Normal 30.5-36.0 [facility] Comment on above: Order Comment: Speci men Type: BLOOD SPECIMENOrdering Facility: [facility] Address: [address] [place] [address] Performed By: #### 5 8410-2 ####[facility] LABORATORYCLIA [id number] [address] MCV (RBC) [Entitic vol] 94.9 fL Normal 80.0-100.0 [facility] Comment on above: Order Comment: Speci men Type: BLOOD SPECIMENOrdering Facility: [facility] Address: [address] [place] [address] Performed By: #### 5 8410-2 ####[facility] LABORATORYCLIA [id number] [address] Nucleated RBC (Bld) [#/Vol] 10*3/uL Normal <0.01 [facility] Comment on above: Order Comment: Speci men Type: BLOOD SPECIMENOrdering Facility: [facility] Address: [address] [place] [address] Performed By: #### 5 8410-2 ####[facility] LABORATORYCLIA [id number] [place] [id number] [place] Platelet mean volume (Bld) [Entitic vol] 9.8 fL Normal 9.0-12.7 [facility] Comment on above: Order Comment: Speci men Type: BLOOD SPECIMENOrdering Facility: [facility] Address: [address] [place] [address] Performed By: #### 5 8410-2 ####[facility]ORATORYCLIA [id number] [place] [address] [facility] [place] Platelets (Bld) [#/Vol] 160 10*3/uL Normal 150-400 [facility] Comment on above: Order Comment: Speci men Type: BLOOD SPECIMENOrdering Facility: [facility] Address: [address] [place] [address] Performed By: #### 5 8410-2 ####[facility]ORATORYCLIA [id number] [place] [address] [place] RBC (Bld) [#/Vol] 4.32 10*6/uL Normal 4.20-6.00 [facility] Comment on above: Order Comment: Speci men Type: BLOOD SPECIMENOrdering Facility: [facility] Address: [address] [place] [address] Performed By: #### 5 8410-2 ####[facility] LABORATORYCLIA [id number] [address] [place] WBC (Bld) [#/Vol] 11.01 10*3/uL High 3.70-11.00 [facility] Comment on above: Order Comment: Speci men Type: BLOOD SPECIMENOrdering Facility: [facility] Address: [address] [place] [address] Performed By: #### 5 8410-2 ####[facility] LABORATORYCLIA [id number] [address] CONSULT PROGon 01-13-2025 CONSULT PROG HNO ID: [id number] Author: JOSAFAT LOREDO MD Service: Nephrology Author Type: Physician Type: Consult Progress Note Filed: 01/13/2025 08:30 Note Text: NEPHROLOGY CONSULT PROGRESS NOTE Subjective INTERVAL HISTORY: The patient was seen and examined . No acute event overnight. PERTINENT ROS: GENERAL: No fever/chills. RESPIRATORY: Negative for cough, wheezing or shortness of breath. CARDIOVASCULAR: Negative for chest pain or palpitations. GI: Negative for nausea, vomiting, Diarrhea, abdominal pain. : Negative for dysuria and hematuria MEDICATIONS: Current Facility-Administered Medications Medication Dose Route Frequency atorvastatin 40 mg tab(s) (LIPITOR) 40 mg ORAL AT BEDTIME midodrine 5 mg tab(s) (PROAMITINE) 5 mg ORAL TID pantoprazole DR 40 mg tab(s) (PROTONIX) 40 mg ORAL DAILY (6 AM) latanoprost 0.005 % 1 drop (XALATAN) 1 drop BOTH EYES AT BEDTIME melatonin 9 mg tab(s) 9 mg ORAL AT BEDTIME PRN dextrose 40 % 15 g 15 g ORAL PRN Or glucagon 1 mg injection 1 mg INTRAMUSCULAR PRN Or dextrose 10% iv bolus 12.5 g INTRAVENOUS PRN NaCl 0.9% iv flush bag 20 mL INTRAVENOUS PRN insulin lispro injection (rapid acting) (ADMElog) SUBCUTANEOUS w MEALS acetaminophen 1,000 mg tab(s) (TYLENOL) 1,000 mg ORAL q 8 H ondansetron (PF) 4 mg injection (ZOFRAN) 4 mg INTRAVENOUS q 6 H PRN ipratropium-albuterol 3 mL nebulizer solution (DUONEB) 3 mL INHALATION QID insulin glargine 6 Units pen (long acting) 6 Units SUBCUTANEOUS AT BEDTIME apixaban 5 mg tab(s) (ELIQUIS) 5 mg ORAL BID traZODone 25 mg tab(s) (DESYREL) 25 mg ORAL AT BEDTIME diazePAM 5 mg tab(s) (VALIUM) 5 mg ORAL DAILY PRN hydrOXYzine HCl 25 mg tab(s) (ATARAX) 25 mg ORAL q 6 H PRN ammonium lactate 12 % (LAC-HYDRIN) TOPICAL PRN [START ON 01/14/2025] bumetanide 2 mg tab(s) (BUMEX) 2 mg ORAL MO-WE-FR-ESPINOSA benzonatate 100 mg cap(s) (TESSALON PERLE) 100 mg ORAL TID cyclobenzaprine 5 mg tab(s) (FLEXERIL) 5 mg ORAL TID sodium chloride 0.9 % (flush) 2-10 mL (BD POSIFLUSH) 2-10 mL INTRAVENOUS DIRECTED PRN And perflutren lipid microspheres 1.1 mg/mL 1.3 mL injection (DEFINITY) 1.3 mL INTRAVENOUS DIRECTED PRN Objective PHYSICAL EXAM: BP 105/54 Pulse 116 Temp 36.7 ?C (98 ?F) (Axillary) Resp 18 Wt 74.8 kg (165 lb) SpO2 94% BMI 23.68 kg/m? Intake/Output Summary (Last 24 hours) at 01/13/2025 0829 Last data filed at 01/12/2025 1723 Gross per 24 hour Intake 50 ml Output -- Net 50 ml GENERAL: NAD HEENT : NCAT, MMM and pink EYES: Conjunctiva -Pallor, Non icterus sclera. NECK: supple, No JVD, LUNGS: CTA without rales or wheeze, diminished breath sounds, CV: no murmurs, clicks, or gallops. ABDOMEN: soft, NT, BS normal EDEMA : no Lower extremity/ no Dependent edema DATA: Diagnostic tests reviewed for today's visit: Most recent labs and imaging results. Recent Labs 01/13/25 0551 01/12/25 0631 01/11/25 0732 WBC 11.01* 6.05 5.49 HB 13.7 11.6* 11.4* HCT 41.0 35.3* 35.4* PLT 160 137* 143* NA 130* 133* 132* K 6.0* 5.0 4.6 CHLOR 89* 93* 93* CO2 22 28 28 BUN 53* 43* 31* CREAT 5.26* 4.52* 3.43* GLUC 38* 69* 106* CA 10.8* 10.2 10.1 Assessment/Plan 1. ESRD on hemodialysis 2. Anemia of chronic kidney disease 3. Secondary hyperparathyroidism 4. Hypertension but a history of intradialytic hypotension and on midodrine 5. Left hip pain and CT scan of pelcis : minimally displaced fracture of left sacrum with questionably minimally displaced fractures of the left superior pelvic ramus. 6. Chronic combined systolic and diastolic failure 7. Coronary disease status post CABG 7. Atrial fibrillation on Eliquis 8. Type 2 diabetes Plan of management --Patient had rapid response this morning with hypoglycemia and questionable mucous plugging. Patient heart rate was also fluctuating and slightly elevated with A-fib with RVR. New EKG changes --Received call from primary attending to arrange for urgent hemodialysis for hyperkalemia as well as for fluid overload. --Will arrange for urgent hemodialysis. ----Hemodialysis for 3.5 hours, 3 L ultrafiltration 2K Potassium bath --Repeat EKG and BMP after dialysis Hemoglobin 11.7 no need for BETTIE therapy Iron study with transferrin saturation 6.1, will add ferritin to a.m. labs Continue BETTIE as needed and vitamin therapy with dialysis same as outpatient hemodialysis center. Continue on Bumex 2 mg once daily Continue on Renvela 1 tablet 3 times with each meal Continue midodrine 5 mg 3 times a day [facility] CT CHEST WO IVCONon 01-14-20 CT CHEST WO IVCON * * *Final Report* * * DATE OF EXAM: Jan 13 2025 5:22PM [facility] [place] [facility] - CT CHEST WO IVCON / PROCEDURE REASON: Wheezing * * * * Physician Interpretation * * * * EXAMINATION: CHEST CT WITHOUT CONTRAST CLINICAL HISTORY: Wheezing. Technique: Spiral CT acquisition of the chest from the thoracic inlet to the upper abdomen without contrast. MQ: [id number]_6 CT Radiation dose: Integrated Dose-length product (DLP) for this visit = 385 mGy*cm CT Dose Reduction Employed: Iterative recon and mAs-kVp adjusted using patient size-age Comparison: None. RESULT: Limitations: None. Lines, tubes, and devices: None. Lung parenchyma and airways: The central airways are patent. Right greater than left bilateral small pleural effusions are visualized, with associated lower lung pulmonary infiltrates/atelectasis. There are foci of groundglass opacities in the right lower lobe and right middle lobe. Focal atelectasis seen in the lingula. No mass lesion identified . Pleural space: Bilateral small pleural effusions as described above. No pneumothorax. Lower neck, lymph nodes, and mediastinum: The thyroid gland is only partially visualized. No supraclavicular or axillary lymphadenopathy. There are a few borderline enlarged mediastinal lymph nodes. Heart, pericardium, and thoracic vessels: There is global cardiomegaly. Atherosclerotic calcifications seen in the coronary circulations and thoracic aorta. Coronary stent is visualized. No pericardial effusion/thickening. Bones and soft tissues: No destructive bone lesion. There appears be T9 vertebral body compression deformity/age indeterminate fracture. There is symmetric gynecomastia. Status post median sternotomy and CABG. Upper abdomen: Limited study through the upper abdomen demonstrates extensive atherosclerotic calcifications in the abdominal aorta and its branches. Localizer images: No additional findings. IMPRESSION: Right greater than left bilateral small pleural effusions with associated lower lung pulmonary infiltrates/atelectasis. Foci of groundglass opacities in the right lung. The top differential consideration would be pulmonary edema however pulmonary infection cannot be excluded. Global cardiomegaly. Crts: PSCLeslye Transcribe Date/Time: Jan 14 2025 8:14A Dictated by : AILEEN MARTINES MD This examination was interpreted and the report reviewed and electronically signed by: AILEEN MARTINES MD on Jan 14 2025 8:31AM EST [id number] [facility] ECG COMPLETEon 01-13-2025 ECG COMPLETE Ventricular Rate : 7 4 BPM Atrial Rate : 74 BPM P-R Interval : 96 ms QRS Duration : 128 ms Q-T Interval : 424 ms QTC Calculation(Bazett) : 470 ms Calculated P Mullen : -42 degrees Calculated R Mullen : -78 degrees Calculated T Mullen : 115 degrees ATRIAL FIBRILLATION RIGHT BUNDLE BRANCH BLOCK LEFT ANTERIOR FASCICULAR BLOCK ABNORMAL ECG WHEN COMPARED WITH ECG OF 13-Jan-2025 07:44, NO SIGNIFICANT CHANGE WAS FOUND Confirmed by RUTH ANN CLAYTON MD ([id number]) on 01/14/2025 1:37:19 PM NAME : MAURI QUINONES PID : [id number] : 1955 Gender : Male Race : ORD : [id number] Procedure Date : Jan 13 2025 10:17:51 Edit Date : Jan 14 2025 13:37:20 Diagnosis: ATRIAL FIBRILLATION RIGHT BUNDLE BRANCH BLOCK LEFT ANTERIOR FASCICULAR BLOCK ABNORMAL ECG WHEN COMPARED WITH ECG OF 13-Jan-2025 07:44, NO SIGNIFICANT CHANGE WAS FOUND Confirmed by RUTH ANN CLAYTON MD ([id number]) on 01/14/2025 1:37:19 PM Test Reason : Tachycardia Location : 4 : 2S 225 Overread By : RUTH ANN CLAYTON MD Edited By : RUTH ANN CLAYTON MD Referred By : MARTÍN ROMANO Acquired by : Sydnee Salcedo [facility] ECHOon 01-13-2025 Echocardiography Echocardiography Rep ort: Transthoracic Echo [facility] Date of service: 01/13/2025 12:54:56 PM Ordering physician: EVARISTO DAS Indication: Sustained atrial fibrillation Technologist: Macey Pichardo [facility] Interpreting physician: Mauri Wynn MD PATIENT: Name: MAURI QUINONES : 1955 Age: 69 years Gender: M History of cardiomyopathy, myocardial infarction, diabetes mellitus, arrhythmia, hypertension, chronic kidney disease and heart failure with hospitalization. Previous cardiovascular interventions: CABG Primary rhythm: atrial fib. Height: 177.80 cm BSA: 1.92 m Weight: 74.84 kg BMI: 23.7 kg/m Heart rate 79 bpm Blood pressure 105/54 mmHg Color Doppler was utilized to interrogate the cardiac valves assessed and spectral Doppler was utilized to determine the flow velocities and pressure gradients reported in this exam. MEASUREMENTS: Value Indexed Normal Max aortic dimension 3.9 cm Ao < 3.8 Left atrium diameter 4.8 cm (2D) Left atrial volume 104 ml (biplane A-L) 54 ml/m Scar <= 34 LV ID (diastole) 5.8 cm (2D) 3.00 cm/m LV ID (systole) 4.8 cm (2D) 2.51 cm/m IVS, leaflet tips 1.5 cm (2D) Posterior wall thickness 1.1 cm (2D) Left ventricular mass 327 g (2D) 170 g/m LV stroke volume 55 ml (2D biplane) LV end diastolic volume 241 ml (2D biplane) 125.4 ml/m 34<=EDVi<75 LV end systolic volume 186 ml (2D biplane) 97.0 ml/m Ejection Fraction 23 % (2D biplane) EF > 52 FINDINGS: LEFT VENTRICLE The left ventricle is severely dilated. There is moderate left ventricular hypertrophy. Left ventricular systolic function is severely decreased. Left ventricular diastolic function was not evaluated due to AF. Mitral annular lateral E/e': 21.7. Mitral annular septal E/e': 46.5. Wall Motion: The entire inferior wall, mid inferoseptal segment, basal inferoseptal segment, and apex are akinetic. The mid and distal anterior wall, mid and distal lateral wall, anterior septum, and mid anterolateral segment are severely hypokinetic. The basal inferolateral segment, basal anterolateral segment, apical septal segment, and basal anterior segment are mildly hypokinetic. RIGHT VENTRICLE The right ventricle is dilated. Right ventricular systolic function is moderately decreased. RV systolic tissue Doppler velocity is 9.2 cm/s. Tricuspid annular displacement is 1.3 cm. Estimated right ventricular systolic pressure is 52 mmHg consistent with moderate pulmonary hypertension. Estimated right atrial pressure is 15 mmHg based on IVC assessment. LEFT ATRIUM The left atrial cavity is severely dilated. RIGHT ATRIUM The right atrial cavity is normal in size. Inferior Vena Cava: The inferior vena cava appears dilated measuring 2.6 cm. The vessel decreases less than 50 percent with inspiration. MITRAL VALVE The mitral valve leaflets are structurally normal. There is moderate mitral annular calcification observed posterior. There is trace mitral valve regurgitation. The pressure half time is 67 msec. The mitral flow deceleration time is 230 msec. TRICUSPID VALVE The tricuspid valve leaflets are structurally normal. There is mild (1+) tricuspid valve regurgitation. AORTIC VALVE There is trace aortic valve regurgitation. Tricuspid aortic valve. There is mild calcification. The peak gradient is 12 mmHg (peak velocity = 174.0 cm/s). The LVOT diameter is 2.0 cm. PULMONIC VALVE The pulmonic valve cusps are structurally normal. There is mild (1+) pulmonic valve regurgitation. AORTA The visualized aorta is borderline dilated. Measurements - Aortic valve annulus 2.0 cm. Sinus: 3.9 cm. Mid ascending aorta 2.7 cm. INTERATRIAL SEPTUM There is no evidence of intracardiac shunting as detected by Doppler. INTERVENTRICULAR SEPTUM There is no flow through the interventricular septum as detected by Doppler. CONCLUSIONS: - Exam indication: Sustained atrial fibrillation - The left ventricle is severely dilated. There is moderate left ventricular hypertrophy. Left ventricular systolic function is severely decreased. EF = 23 5% (2D biplane) Left ventricular diastolic function was not evaluated due to AF. - The right ventricle is dilated. Right ventricular systolic function is moderately decreased. - The left atrial cavity is severely dilated. - The visualized aorta is borderline dilated with a maximal dimension of 3.9 cm. - There is mild (1+) tricuspid regurgitation. - There is mild pulmonic insufficiency present. - Estimated right ventricular systolic pressure is 52 mmHg consistent with moderate pulmonary hypertension. Estimated right atrial pressure is 15 mmHg based on IVC assessment. - Exam was compared with the prior echocardiographic exam performed on 04/25/22. LV function has decreased. Prior EF was 45%. Valvular regurgitation has decreased. Electronically signed by Mauri Wynn MD on 5 (more content not included)... [facility] EKGon 01-13-2025 Electrocardiogram Ventricular Rate : 9 7 BPM Atrial Rate : 97 BPM P-R Interval : 80 ms QRS Duration : 162 ms Q-T Interval : 358 ms QTC Calculation(Bazett) : 454 ms Calculated P Mullen : -29 degrees Calculated R Mullen : 246 degrees Calculated T Mullen : 11 degrees ATRIAL FIBRILLATION RIGHT BUNDLE BRANCH BLOCK INFERIOR INFARCT , AGE UNDETERMINED ABNORMAL ECG NO PREVIOUS ECGS AVAILABLE Confirmed by RUTH ANN CLAYTON MD ([id number]) on 01/14/2025 1:35:20 PM NAME : MAURI QUINONES PID : [id number] : 1955 Gender : Male Race : ORD : Procedure Date : Jan 13 2025 07:44:50 Edit Date : Jan 14 2025 13:35:27 Diagnosis: ATRIAL FIBRILLATION RIGHT BUNDLE BRANCH BLOCK INFERIOR INFARCT , AGE UNDETERMINED ABNORMAL ECG NO PREVIOUS ECGS AVAILABLE Confirmed by RUTH ANN CLAYTON MD ([id number]) on 01/14/2025 1:35:20 PM Test Reason : Location : 3 : [address] [place] [address] Overread By : RUTH ANN CLAYTON MD Edited By : RUTH ANN CLAYTON MD Referred By : MARTÍN ROMANO Acquired by : joshua [facility] HIGH SENSITIVITY TROPONIN To n 01-13-2025 Troponin T.cardiac High sensitivity method [Mass/Vol] 288 ng/L High <[address] [place] [address] Comment on above: Order Comment: Speci men Type: BLOOD SPECIMENOrdering Facility: [facility] Address: [address] [place] [address] Performed By: #### H STNT ####[facility] LABORATORYCLIA [id number] [address] [place] Troponin T.cardiac High sensitivity method [Mass/Vol] 260 ng/L High <[address] [place] [address] Comment on above: Order Comment: Speci men Type: BLOOD SPECIMENOrdering Facility: [facility] Address: [address] [place] [address] Performed By: #### H STNT ####ADAM LABORATORYCLIA [id number] [place] [address] [place] MEDICAL Joseph 01-13-2025 COLLETTE BARRETT HNO ID: [id number] Author: IVETT DUEÑAS APRN.JOCELYN Service: Critical Care Author Type: Nurse Practitioner Type: Chg in Clinical Condition Filed: 01/13/2025 17:40 Note Text: MEDICAL EMERGENCY TEAM CALL TYPE: RAPID RESPONSE 0719 CODE STATUS: Code Status: Prior BACKGROUND Mauri Quinones is a 69 year old male with a past medical history described below who was admitted to [facility] on 01/07/2025 for management of Fractured pelvis. REASON FOR CALL Glucose 39 ASSESSMENT Rapid response called for severe symptomatic hypoglycemia without adequate IV access. On initial evaluation the patient is lethargic, diaphoretic, clammy, and pale. AM labs resulted 0656 at 38. Accucheck 37, he had one periperial IV that was nonfunctioning unable to give IV D10. IM Glucoagon administered into R deltoid. AMWILVER RN able to obtain IV access and 12.5g D10 given. Repeat acchuceck 115 > 83, additional 12.5 D10 bolus given as patient is to go to Dialysis and will not be eating. Close monitoring of glucose while in dialysis recommended. Post dextrose patient is AANDO back to his baseline. Denies CP, SOB, N/V/D, biggest complaint is his pelvic pain. Attending physician Dr Das at bedside ordered ABG, CXR and EKG. ABG CXR similar to previous film 01/08. EKG showing T-wave inversions in precordial leads. Spoke with electronic development technician Cardiology Daniela Lewis, not concerned by EKG, agrees with dialysis and repeat EKG post treatment. Upon looking at labs it appears he was also hypoglycemia on AM labs yesterday. I would recommend adjusting his PM Lantus dose and add a 0200 accucheck for close monitoring of glucose levels. INTERVENTIONS / PLAN - IM Glucagon x1 - D10 Bolus x2 - CXR - EKG - MILAGRO - Plan for dialysis to correct hyperkalemia - Recommend decreasing bedtime Lantus dose - Recommend 0200 accucheck - Maintain adequate IV access DISPOSITIONS Improved PAST MEDICAL / SURGICAL HISTORY PAST MEDICAL HISTORY Diagnosis Date Ankylosing spondylitis (HCC) CAD (coronary artery disease) Cellulitis Chronic combined systolic and diastolic CHF (congestive heart failure) ([facility]) 03/24/2019 CKD (chronic kidney disease) stage 3, GFR 30-59 ml/min ([facility]) 03/24/2019 Constipation Diabetes ([facility]) ESRD (end stage renal disease) ([facility]) Gout History of coronary artery bypass graft 04/18/2019 04/10/17 CARTY to LAD, SVG to PDA, SVG to OM Hx of fracture multiple bones Ischemic cardiomyopathy 04/18/2019 Echocardiogram 01/10/19 Dr. Nunez: Dilated left ventricle, left ventricular ejection fraction 40%, mild to moderate systolic dysfunction, moderate concentric LVH, dilated left and right atria. Mild mitral valve thickening with papillary muscle dysfunction, mild mitral valve insufficiency, tricuspid valve insufficiency, aortic valve insufficiency, pulmonic valve insufficiency. Aortic valve calcifi NSTEMI (non-ST elevated myocardial infarction) ([facility]) 03/12/2017 [facility] admit Osteoarthritis PAST SURGICAL HISTORY Procedure Laterality Date ARTHRP ACETBLR/PROX FEM PROSTC AGRFT/ALGRFT Right 2018 Dr Peguero CORONARY ARTERY BYPASS GRAFT 04/12/2017 x 3 FEMUR RIGHT OP SURGERY Right Repair of fracture with hardward HIP SURGERY HX Right pin KNEE ARTHROSCOPY Left x2 KNEE SURGERY HX Right TKR, right, arthoscopy x3 PAST SURGICAL HISTORY OF 09/07/2017 08/15/17 fx radius in 2 places; plate and screws.Plate and screws 09/07/17 [facility] TOE SURGERY HX Right AIRWAY HISTORY No documented history of difficult airway PERTINENT PHYSICAL EXAM and INITIAL ASSESSMENT (For vital signs prior and during MET call, see nursing documentation) Pertinent Vital Signs at Time of MET Call: See additional rapid response documentation in physical chart 01/13/25 0400 01/13/25 0617 01/13/25 0625 01/13/25 0745 BP: 105/54 Pulse: 103 120 116 Resp: 18 Temp: 36.7 ?C (98.1 ?F) 36.7 ?C (98 ?F) TempSrc: Temporal Axillary SpO2: 94% Weight: Physical Exam Vitals reviewed. Constitutional: Appearance: He is ill-appearing and diaphoretic. Eyes: Pupils: Pupils are equal, round, and reactive to light. Pupils are equal. Cardiovascular: Rate and Rhythm: Tachycardia present. Rhythm irregular. Pulses: Normal pulses. Heart sounds: Normal heart sounds. Pulmonary: Effort: Pulmonary effort is normal. Breath sounds: Examination of the right-upper field reveals rhonchi. Examination of the left-upper field reveals rhonchi. Examination of the right-lower field reveals decreased breath sounds. Examination of the left-lower field reveals decreased breath sounds. Decreased breath sounds and rhonchi present. Abdominal: General: Abdomen is flat. Bowel sounds are normal. There is no distension. Palpations: Abdomen is soft. Tenderness: There is no abdominal tenderness. Musculoskeletal: Right lower leg: No edema. Left lower leg: No edema. Skin: General: Skin is cool and moist. (more content not included)... [facility] NURSING PROGon 01-13-2025 NURSING PROG HNO ID: [id number] Author: SAMEER PIERRE RN Service: Nursing Author Type: Registered Nurse Type: Nursing Progress Note Filed: 01/13/2025 12:29 Note Text: Hemodialysis tx completed x 3.5 hours. Pt tolerated tx well. Fluid removed 3,000ml using crit-line monitor to B-profile and BV change max of -8.8%. Vitals stable post tx. Verbal report to RN Floyd Mishra post tx. [facility] NURSING PROG HNO ID: [id number] Author: FLOYD MISHRA RN Service: Nursing Author Type: Registered Nurse Type: Nursing Progress Note Filed: 01/13/2025 19:10 Note Text: Event(s) / Intervention Note: PATIENT NAME: Mauri Quinones Patient Location: [place] [address] [address] Room: [place] [address] The patient was observed having the following problems: change in mental status difficult to arouse, shortness of breath, and blood glucose of 38 with tachycardia (a fib RVR 120s). The time of the event occurred at: 0718. The following intervention(s) were initiated: Dr. Das and Rapid Response team at bedside, IM glucagon and Dextrose 10% IV medication given, and orders for STAT chest Xray, ECHO and CT Chest given, EKG monitoring and patient sent to dialysis. After the initiated interventions, the following observation(s) were made: patient reported relief and blood glucose continued to be low constant monitoring with additional orders and critical care with attending doctor frequent monitoring; new ACHS and 0200 blood glucose orders. [facility] NUTRITIONon 01-13-2025 NUTRITION HNO ID: [id number] Author: SAL BRAMBILA RD Service: Nutrition Therapy Author Type: Registered Dietitian Type: Nutrition Filed: 01/13/2025 11:02 Note Text: NUTRITION THERAPY SCREEN NOTE SERVICE DATE: 01/13/2025 SERVICE TIME: Start Time: 1044 Care Plan: Continue current diet Supplements: Nepro Discharge Recommendations: Diet, Oral Supplements Diet: REnal Oral Supplements: REnal friendly nightly Monitor and Evaluation: Meet greater than 75% of estimated needs, Monitor fluid/electrolyte balance, Monitor labs, I/Os, vital signs, weight Intake History: 6 day LOS 69 y/o male Fractured pelvis ([facility]) [S32.9XXA] Left hip pain [M25.552] PAST MEDICAL HISTORY Diagnosis Date Ankylosing spondylitis ([facility]) CAD (coronary artery disease) Cellulitis Chronic combined systolic and diastolic CHF (congestive heart failure) ([facility]) 03/24/2019 CKD (chronic kidney disease) stage 3, GFR 30-59 ml/min ([facility]) 03/24/2019 Constipation Diabetes ([facility]) ESRD (end stage renal disease) ([facility]) Gout History of coronary artery bypass graft 04/18/2019 04/10/17 CARTY to LAD, SVG to PDA, SVG to OM Hx of fracture multiple bones Ischemic cardiomyopathy 04/18/2019 Echocardiogram 01/10/19 Dr. Nunez: Dilated left ventricle, left ventricular ejection fraction 40%, mild to moderate systolic dysfunction, moderate concentric LVH, dilated left and right atria. Mild mitral valve thickening with papillary muscle dysfunction, mild mitral valve insufficiency, tricuspid valve insufficiency, aortic valve insufficiency, pulmonic valve insufficiency. 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 Diet Orders (From admission, onward) Start Ordered 01/13/25 1100 DIET SUPPLEMENTS NOW Question Answer Comment Supplement 1 NEPRO MIXED [place] Supplement 1 Frequency DINNER 01/13/25 1052 01/09/25 0945 Diet Carbohydrate Controlled START NOW Question Answer Comment Carbohydrate Control CONSISTENT CARBOHYDRATE Food Consistency DENTAL SOFT 01/09/25 0944 Anthropometrics: Weight: 74.8 kg (165 lb) Weight Change: Stable weight(s) (grossly , 77.5kg est dry wt 11/2023 AND since 10/07/24 flux charted w/ HD missed recently, currently recieving) Lines, Drains, and Airways None MNT Billing: $ Routine Care : 1 unit Time Spent (mins): 5 SIGNATURE: Sal Brambila RD PATIENT NAME: Mauri Quinones DATE: January 13, 2025 TIME: 10:53 AM [facility] THERAPY NTon 01-13-2025 THERAPY NT HNO ID: [id number] Author: ANAYA WHITE CCC-LUBE ATTENDANT Service: Speech/Swallow Author Type: Speech Language Pathologist Type: Therapy (PT/OT/Speech/Resp) Filed: 01/13/2025 15:51 Note Text: -- Summary: Dysphagia Tx -- Speech Therapy Treatment SERVICE DATE: 01/13/2025 SERVICE TIME: 1528 to 1546 ROOM: [place] [address] IMPRESSION Swallow Deficits Identified / Suspected: Oral dysphagia RECOMMENDATIONS Diet Recommendations Dental Soft, Thin Liquids IDDSI Level 0 Swallow Strategy Recommendations Feed / Eat at a slow rate, Check oral cavity for remaining food, Limit Distractions Nursing Recommendations Routine Rigid Oral Hygiene, Reinforce use of swallowing strategies Response to Therapy Interventions: Receptive family/caregivers Rehabilitation Precautions: Diabetic DISCHARGE RECOMMENDATIONS Recommended Discharge Disposition: No further skilled speech therapy services anticipated CURRENT HOSPITAL COURSE admitted to the hospital for fractured pelvis, recent fall Reason for Speech Therapy Consult: Concern for Dysphagia Relevant Past Medical History: CAD; ESRD; GARRET; CKD; DM II; GOUT HOME ENVIRONMENT / PRIOR FUNCTIONAL LEVEL Prior Functional Level: Required Assistance Patient Lives With: Spouse Assistance Required With: Transportation Assistance Available: PRN Prior Swallowing Function/Diet Textures: Regular Consistency, Thin Liquids IDDSI Level 0 (as reported by the patient / confirmed by the patients ) SUBJECTIVE Patient / are receptive to today's visit for follow up treatment THERAPY DIAGNOSIS Dysphagia, oral phase TREATMENT INTERVENTIONS Dysphagia Therapy (30249) Skilled Treatment Time (minutes): 18 TRAINING AND EDUCATION PROVIDED IN Dysphagia Management, Caregiver Education, Results and Recommendations of Session, Dietary Consistencies THERAPEUTIC SKILLS USED Education on role of discipline / importance of activity, Family / caregiver counseling / training OBJECTIVE Current Status Oral Hygiene: Clear, moist oral cavity Dentition: Edentulous Current Feeding Method: Oral Current Diet Textures: Dental Soft, Thin Liquids IDDSI Level 0 Current Level Of Communication: Verbal Current Management Of Secretions: Able to self-manage Oral Motor Exam: Within Functional Limits SWALLOW ASSESSMENT Response to Swallow Interventions: reports of poor appetite with intermittent refusal of various food items; consulted with patients regarding various food textures; educated on suggestions to support nutritional intake; no overt reports of overt pharyngeal phase dysphagia GOALS SWALLOWING: Patient / Caregiver will demonstrate knowledge of taught compensatory strategies and dietary consistency recommendations to optimize functional swallow function without overt clinical signs and symptoms of aspiration or dysphagia Speech Rehab Potential: Good Progress Toward Goals: Progressing as expected Patient /Caregiver Goals: Go Home, Eat/Drink Without Restrictions ACUTE CARE TREATMENT PLAN ST Frequency: 2 Times Per Week Treatment Interventions: Dysphagia Management Plan of Care Developed with: Patient, Nurse Plan for next visit: Dysphagia Management SIGNATURE: Anaya Malik CCC-LUBE ATTENDANT PATIENT NAME: Mauri Quinones DATE: January 13, 2025 TIME: 3:50 PM Normal [facility] XR CHEST 1V FRONTAL PORTon 0 01-13-2025 XR CHEST 1V FRONTAL PORT * * *Final Report* * * DATE OF EXAM: Jan 13 2025 7:39AM MDX 5376 - XR CHEST 1V FRONTAL PORT / PROCEDURE REASON: Shortness of breath * * * * Physician Interpretation * * * * EXAMINATION: CHEST RADIOGRAPH (PORTABLE SINGLE VIEW AP) Exam Date/Time: 01/13/2025 7:39 AM CLINICAL HISTORY: Shortness of breath MQ: XCPR_5 Comparison: Chest x-ray 04/10/2025 RESULT: Lines, tubes, and devices: None. Lungs and pleura: Slight prominence of the pulmonary markings noted. No definite consolidation seen on the current study. No visible masses. No considerable pneumothorax or pleural effusion. Cardiomediastinal silhouette: Prominent cardiac silhouette similar to prior study. Other: Status post median sternotomy and CABG. IMPRESSION: Overall findings unchanged. Crts: PSCB Transcribe Date/Time: Jan 13 2025 8:04A Dictated by : AILEEN MARTINES MD This examination was interpreted and the report reviewed and electronically signed by: AILEEN MARTINES MD on Jan 13 2025 8:06AM EST [id number] Normal [facility] Basic metabolic 2000 panelon 01-12-2025 Anion gap [Moles/Vol] 12 mmol/L Normal 04-10 [facility] Comment on above: Order Comment: Kelsi huff Type: BLOOD SPECIMENOrdering Facility: [facility] Address: [address] [place] [address] Performed By: #### 2 4321-2 ####[facility]ST[facility] LABORATORYCLIA [id number] [place] [address] [place] Calcium [Mass/Vol] 10.2 mg/dL Normal 8.5-10.2 [facility] Comment on above: Order Comment: Kelsi huff Type: BLOOD SPECIMENOrdering Facility: [facility] Address: [address] [place] [address] Performed By: #### 2 4321-2 ####WO[facility]STOCK LABORATORYCLIA [id number] [place] [id number] [place] Chloride [Moles/Vol] 93 mmol/L Low 98-107 [facility] Comment on above: Order Comment: Speci men Type: BLOOD SPECIMENOrdering Facility: [facility] Address: [address] [place] [address] Performed By: #### 2 4321-2 ####ADAM LABORATORYCLIA [id number] [place] [address] [place] CO2 [Moles/Vol] 28 mmol/L Normal 22-30 [facility] Comment on above: Order Comment: Speci men Type: BLOOD SPECIMENOrdering Facility: [facility] Address: [address] [place] [address] Performed By: #### 2 4321-2 ####ADAM LABORATORYCLIA [id number] [address] STATES OF [facility] Creatinine [Mass/Vol] 4.52 mg/dL High 0.73-1.22 [facility] Comment on above: Order Comment: Speci men Type: BLOOD SPECIMENOrdering Facility: [facility] Address: [address] [place] [address] Performed By: #### 2 4321-2 ####ADAM LABORATORYCLIA [id number] [address] Creatinine and Glomerular filtration rate.predicted panel (S/P/Bld) 13 mL/min/1.73m??? Low >=60 [facility] Comment on above: Order Comment: Samanthai daria Type: BLOOD SPECIMENOrdering Facility: [facility] Address: [address] [place] [address] Result Comment: Caryl mated Glomerular Filtration Rate (eGFR) is calculated using the 2020 CKD-EPI creatinine equation. This equation utilizes serum creatinine, sex, and age as parameters. The creatinine assay has traceable calibration to isotope dilution-mass spectrometry. Refer to KDIGO guidelines for clinical interpretation. In patients with unstable renal function, e.g. those with acute kidney injury, the eGFR may not accurately reflect actual GFR. Performed By: #### 2 4321-2 ####ADAM LABORATORYCLIA [id number] [address] [place] Glucose [Mass/Vol] 69 mg/dL Low 74-99 [facility] Comment on above: Order Comment: Kelsi huff Type: BLOOD SPECIMENOrdering Facility: [facility] Address: [address] [place] [address] Result Comment: The [place] Diabetes [employer] (ADA) provides guidance for cutoff values for fasting glucose and random glucose. The ADA defines fasting as no caloric intake for at least 8 hours. Fasting plasma glucose results between 100 to 125 [...] Standards of Medical Care in Diabetes 2016, [place] [employer]. Diabetes Care. 2016.39(Suppl 1). Performed By: #### 2 4321-2 ####ADAM LABORATORYCLIA [id number] [place] [address] [place] Potassium [Moles/Vol] 5.0 mmol/L Normal 3.7-5.1 [facility] Comment on above: Order Comment: Kelsi huff Type: BLOOD SPECIMENOrdering Facility: [facility] Address: [address] [place] [address] Performed By: #### 2 4321-2 ####ADAM LABORATORYCLIA [id number] [place] [address] [place] Sodium [Moles/Vol] 133 mmol/L Low 136-144 [facility] Comment on above: Order Comment: Samanthai men Type: BLOOD SPECIMENOrdering Facility: [facility] Address: [address] [place] [address] Performed By: #### 2 4321-2 ####ADAM LABORATORYCLIA [id number] [place] [id number] [place] Urea nitrogen [Mass/Vol] 43 mg/dL High 9-24 [facility] Comment on above: Order Comment: Samanthai men Type: BLOOD SPECIMENOrdering Facility: [facility] Address: [address] [place] [address] Performed By: #### 2 4321-2 ####ADAM LABORATORYCLIA [id number] [address] CBC panel Auto (Bld)on 01-12 Erythrocyte distribution width (RBC) [Ratio] 16.0 % High 11.5-15.0 [facility] Comment on above: Order Comment: Speci men Type: BLOOD SPECIMENOrdering Facility: [facility] Address: [address] [place] [address] Performed By: #### 5 8410-2 ####ADAM LABORATORYCLIA [id number] [address] Hematocrit (Bld) [Volume fraction] 35.3 % Low 39.0-51.0 [facility] Comment on above: Order Comment: Speci men Type: BLOOD SPECIMENOrdering Facility: [facility] Address: [address] [place] [address] Performed By: #### 5 8410-2 ####ADAM LABORATORYCLIA [id number] [address] Hemoglobin (Bld) [Mass/Vol] 11.6 g/dL Low 13.0-17.0 [facility] Comment on above: Order Comment: Speci men Type: BLOOD SPECIMENOrdering Facility: [facility] Address: [address] [place] [address] Performed By: #### 5 8410-2 ####ADAM LABORATORYCLIA [id number] [address] MCH (RBC) [Entitic mass] 31.6 pg Normal 26.0-34.0 [facility] Comment on above: Order Comment: Speci men Type: BLOOD SPECIMENOrdering Facility: [facility] Address: [address] [place] [address] Performed By: #### 5 8410-2 ####ADAM LABORATORYCLIA [id number] [address] MCHC (RBC) [Mass/Vol] 32.9 g/dL Normal 30.5-36.0 [facility] Comment on above: Order Comment: Speci men Type: BLOOD SPECIMENOrdering Facility: [facility] Address: [address] [place] [address] Performed By: #### 5 8410-2 ####ADAM LABORATORYCLIA [id number] [place] [address] [place] MCV (RBC) [Entitic vol] 96.2 fL Normal 80.0-100.0 [facility] Comment on above: Order Comment: Speci men Type: BLOOD SPECIMENOrdering Facility: [facility] Address: [address] [place] [address] Performed By: #### 5 8410-2 ####ADAM LABORATORYCLIA [id number] [address] [place] Nucleated RBC (Bld) [#/Vol] 10*3/uL Normal <0.01 [facility] Comment on above: Order Comment: Speci men Type: BLOOD SPECIMENOrdering Facility: [facility] Address: [address] [place] [address] Performed By: #### 5 8410-2 ####ADAM LABORATORYCLIA [id number] [address] [place] Platelet mean volume (Bld) [Entitic vol] 9.6 fL Normal 9.0-12.7 [facility] Comment on above: Order Comment: Speci men Type: BLOOD SPECIMENOrdering Facility: [facility] Address: [address] [place] [address] Performed By: #### 5 8410-2 ####ADAM LABORATORYCLIA [id number] [address] [place] Platelets (Bld) [#/Vol] 137 10*3/uL Low 150-400 [facility] Comment on above: Order Comment: Speci men Type: BLOOD SPECIMENOrdering Facility: [facility] Address: [address] [place] [address] Performed By: #### 5 8410-2 ####ADAM LABORATORYCLIA [id number] [place] [address] [facility] [place] RBC (Bld) [#/Vol] 3.67 10*6/uL Low 4.20-6.00 [facility] Comment on above: Order Comment: Speci men Type: BLOOD SPECIMENOrdering Facility: [facility] Address: [address] [place] [address] Performed By: #### 5 8410-2 ####ADAM LABORATORYCLIA [id number] [address] WBC (Bld) [#/Vol] 6.05 10*3/uL Normal 3.70-11.00 [facility] Comment on above: Order Comment: Speci men Type: BLOOD SPECIMENOrdering Facility: [facility] Address: [address] [place] [address] Performed By: #### 5 8410-2 ####ADAM LABORATORYCLIA [id number] [place] [id number] [facility] CONSULT PROGon 01-12-2025 CONSULT PROG HNO ID: [id number] Author: JOSAFAT LOREDO MD Service: Nephrology Author Type: Physician Type: Consult Progress Note Filed: 01/12/2025 08:16 Note Text: NEPHROLOGY CONSULT PROGRESS NOTE Subjective INTERVAL HISTORY: The patient was seen and examined . No acute event overnight. PERTINENT ROS: GENERAL: No fever/chills. RESPIRATORY: Negative for cough, wheezing or shortness of breath. CARDIOVASCULAR: Negative for chest pain or palpitations. GI: Negative for nausea, vomiting, Diarrhea, abdominal pain. : Negative for dysuria and hematuria MEDICATIONS: Current Facility-Administered Medications Medication Dose Route Frequency atorvastatin 40 mg tab(s) (LIPITOR) 40 mg ORAL AT BEDTIME bumetanide 2 mg tab(s) (BUMEX) 2 mg ORAL DAILY midodrine 5 mg tab(s) (PROAMITINE) 5 mg ORAL TID pantoprazole DR 40 mg tab(s) (PROTONIX) 40 mg ORAL DAILY (6 AM) latanoprost 0.005 % 1 drop (XALATAN) 1 drop BOTH EYES AT BEDTIME melatonin 9 mg tab(s) 9 mg ORAL AT BEDTIME PRN dextrose 40 % 15 g 15 g ORAL PRN Or glucagon 1 mg injection 1 mg INTRAMUSCULAR PRN Or dextrose 10% iv bolus 12.5 g INTRAVENOUS PRN NaCl 0.9% iv flush bag 20 mL INTRAVENOUS PRN insulin lispro injection (rapid acting) (ADMElog) SUBCUTANEOUS w MEALS acetaminophen 1,000 mg tab(s) (TYLENOL) 1,000 mg ORAL q 8 H ondansetron (PF) 4 mg injection (ZOFRAN) 4 mg INTRAVENOUS q 6 H PRN ipratropium-albuterol 3 mL nebulizer solution (DUONEB) 3 mL INHALATION QID insulin glargine 6 Units pen (long acting) 6 Units SUBCUTANEOUS AT BEDTIME apixaban 5 mg tab(s) (ELIQUIS) 5 mg ORAL BID traZODone 25 mg tab(s) (DESYREL) 25 mg ORAL AT BEDTIME diazePAM 5 mg tab(s) (VALIUM) 5 mg ORAL DAILY PRN Objective PHYSICAL EXAM: BP 119/60 Pulse 81 Temp 36.6 ?C (97.9 ?F) (Oral) Resp 20 Wt 74.8 kg (165 lb) SpO2 92% BMI 23.68 kg/m? Intake/Output Summary (Last 24 hours) at 01/12/2025 0815 Last data filed at 01/11/2025 2239 Gross per 24 hour Intake 480 ml Output -- Net 480 ml GENERAL: NAD HEENT : NCAT, MMM and pink EYES: Conjunctiva -Pallor, Non icterus sclera. NECK: supple, No JVD, LUNGS: CTA without rales or wheeze, diminished breath sounds, CV: no murmurs, clicks, or gallops. ABDOMEN: soft, NT, BS normal EDEMA : no Lower extremity/ no Dependent edema DATA: Diagnostic tests reviewed for today's visit: Most recent labs and imaging results. Recent Labs 01/12/25 0631 01/11/25 0732 01/10/25 0622 WBC 6.05 5.49 6.24 HB 11.6* 11.4* 12.0* HCT 35.3* 35.4* 37.2* PLT 137* 143* 145* NA 133* 132* 134* K 5.0 4.6 4.6 CHLOR 93* 93* 92* CO2 28 28 26 BUN 43* 31* 50* CREAT 4.52* 3.43* 4.82* GLUC 69* 106* 94 CA 10.2 10.1 10.4* MG -- -- 2.3 Recent Labs 01/10/25 0622 TPROT 7.3 ALB 3.5* ALT 12 AST 25 ALKPHOS 202* TBILI 0.9 Assessment/Plan 1. ESRD on hemodialysis 2. Anemia of chronic kidney disease 3. Secondary hyperparathyroidism 4. Hypertension but a history of intradialytic hypotension and on midodrine 5. Left hip pain and CT scan of pelcis : minimally displaced fracture of left sacrum with questionably minimally displaced fractures of the left superior pelvic ramus. 6. Chronic combined systolic and diastolic failure 7. Coronary disease status post CABG 7. Atrial fibrillation on Eliquis 8. Type 2 diabetes Plan of management --Patient had last hemodialysis on Sunday and tolerated treatment well. Hemodialysis for 3.5 hours and 2.5 L of ultrafiltration No urgent need for hemodialysis today next dialysis in a.m. - Confusion, improving, urine cultures have been negative. Hemodialysis for 3.5 hours, 2K bath, ultrafiltration 1 to 2 L Hemoglobin 11.7 no need for BETTIE therapy Iron study with transferrin saturation 6.1, will add ferritin to a.m. labs Continue BETTIE as needed and vitamin therapy with dialysis same as outpatient hemodialysis center. Continue on Bumex 2 mg once daily Continue on Renvela 1 tablet 3 times with each meal Continue midodrine 5 mg 3 times a day [facility] THERAPY NTon 01-12-2025 THERAPY NT HNO ID: [id number] Author: SONA HILL PT Service: Physical Therapy Author Type: Industrial Sewer Type: Therapy (PT/OT/Speech/Resp) Filed: 01/13/2025 15:40 Note Text: -- Attestation signed by Sona Hill PT at 01/13/2025 3:40 PM I reviewed and agree with the documentation corresponding to this therapy visit. SIGNATURE: Sona Hill PT DATE: January 13, 2025 TIME: 3:40 PM -- -- Summary: PT Treat -- Physical Therapy Treatment Summary SERVICE DATE: 01/12/2025 SERVICE TIME: 1345 to 1420 ROOM: [id number] PT 6 Clicks Score: 10 DISCHARGE RECOMMENDATIONS Subacute/SNF Recommended Discharge Disposition Comments: Pt is currently performing functional mobility below PLOF and would benefit from continued skilled PT to reduce risk of falls and rehospitalization. Recommended Discharge Disposition Due to: Functional deficits requiring ongoing therapy service prior to discharge home., Anticipated community discharge, Balance deficits, Functional status decline, Requires multiple therapy disciplines Anticipated Discharge Needs: Physical Assist at Home, Supervision at Home Physical Assist at Home for: Transfers, Finances, Ambulation, Cleaning, Laundry, Medication Management, Meals, Safety, Self Care, Shopping, Transportation, Wheelchair Mobility Supervision at Home due to: Decreased safety awareness, Impaired cognition Recommended Discharge Equipment: No equipment needs anticipated ASSESSMENT Response to Therapy Interventions: Good Participation in Activities, Multiple Ongoing Medical Issues, Pain, Requires Additional Time to Complete Activities, Requires Encouragement to Complete Activities, Slow Progression with Functional Activities/Skills, Low Activity Tolerance pt tolerated session well. pt able to sit EOB with less assistance this session as well as sit unsupported for extended time. pt able to stand with max assist but would benefit from skilled therapy following hospital d/c PRECAUTIONS Bed/Chair Alarm, Fall Risk, Lines/Tubes/Drains, Weight Bearing Restrictions left limb alert Left Lower Extremity Weight Bearing Status: WBAT CURRENT HOSPITAL COURSE Right KEMAR and Right TKA who presents with fall and left hip pain. He uses a wheelchair at baseline and was transferring out of the shower when he had a fall to the ground. He had left hip pain that was severe and presented to the ED. He continues to have pain in the left hip. x: Fractured pelvis (HCC), Left hip pain. ortho consult 01/08. cleared for mobility with WBAT left LE Relevant Past Medical History: DM, ankylosing spondylitis, osteoarthritis, history of fracture multiple bones, cellulitis, gout, CAD,NSTEMI, CHF, CKD, CABG, ischemic cardiomyopathy, ESRD, right TKA, right ORIF/post fracture, right toe surgery HOME LIVING Patient Lives With: Spouse Assistance Available: 24-Hour Entry To Home: No Stairs Number Of Stairs To Bed/Bath: 0 Tub/Shower Type: WIS with small threshold, shower chair + grab bars Laundry: Spouse completes Equipment Owned: Wheelchair- Manual, Shower Chair, Grab Bars- Toilet, Grab Bars- Shower, Commode- Raised, Walker- Wheeled PRIOR FUNCTIONAL LEVEL History of Falls, Poor Historian, Required Assistance Assistance Required With: Cleaning, Laundry, Meals, Medication Management, Transportation, Wheelchair Mobility patient poor historian - independently mobilizes in w/c, and uses FWW at times. ind with ADL and pt reports spouse completes IADLs including managing pt's meds, fall leading to current admission possible falling out of shower. patient unable to describe fall history. sleeps in recliner. dialysis T, Th and Sat per RN SUBJECTIVE Pt agreeable to PT okay per RN to see, pt does not seem to be confused this session THERAPY DIAGNOSIS Reduced mobility-other TREATMENT INTERVENTIONS Therapeutic Activity (79701) Timed Code Treatment (minutes): 35 Skilled Treatment Time (minutes): 35 Therapeutic Activity (42706) Treatment Minutes: 35 $ Therapeutic Activity (57762) Billed Units: 2 units TRAINING AND EDUCATION PROVIDED Anatomy and Impact on Deficits, Bed Mobility, Benefits of In-Hospital Mobility, Discharge Planning, Expected Functional Level, Falls Prevention, Equipment, Gait Pattern, Reduction of Deviations, Positioning, Precautions/Restrictions, Role of Physical Therapy, Sitting Balance, Transfers, Pre-gait Activities, Standing Balance THERAPEUTIC SKILLS USED Activity Dosing, Assessment of Tolerance Including Vitals Response to Activity, Cuing Verbal, Cues for Sequencing/Proper Technique for Activity, Management of Critical Lines, Tubes (more content not included)... Normal [facility] Basic metabolic 2000 panelon 01-11-2025 Anion gap [Moles/Vol] 11 mmol/L Normal 8-15 [facility] Comment on above: Order Comment: Speci men Type: BLOOD SPECIMENOrdering Facility: [facility] Address: [address] [place] [address] Performed By: #### 2 4321-2 ####ADAM LABORATORYCLIA [id number] [place] [address] [place] Calcium [Mass/Vol] 10.1 mg/dL Normal 8.5-10.2 [facility] Comment on above: Order Comment: Speci men Type: BLOOD SPECIMENOrdering Facility: [facility] Address: [address] [place] [address] Performed By: #### 2 4321-2 ####ADAM LABORATORYCLIA [id number] [place] [address] [place] Chloride [Moles/Vol] 93 mmol/L Low 98-107 [facility] Comment on above: Order Comment: Speci men Type: BLOOD SPECIMENOrdering Facility: [facility] Address: [address] [place] [address] Performed By: #### 2 4321-2 ####ADAM LABORATORYCLIA [id number] [place] [address] [place] CO2 [Moles/Vol] 28 mmol/L Normal 22-30 [facility] Comment on above: Order Comment: Speci men Type: BLOOD SPECIMENOrdering Facility: [facility] Address: [address] [place] [address] Performed By: #### 2 4321-2 ####ADAM LABORATORYCLIA [id number] [place] [address] [place] Creatinine [Mass/Vol] 3.43 mg/dL High 0.73-1.22 [facility] Comment on above: Order Comment: Speci men Type: BLOOD SPECIMENOrdering Facility: [facility] Address: [address] [place] [address] Performed By: #### 2 4321-2 ####[facility] LABORATORYCLIA [id number] [place] [address] [place] Creatinine and Glomerular filtration rate.predicted panel (S/P/Bld) 19 mL/min/1.73m??? Low >=60 [facility] Comment on above: Order Comment: Kelsi huff Type: BLOOD SPECIMENOrdering Facility: [facility] Address: [address] [place] [address] Result Comment: Caryl mated Glomerular Filtration Rate (eGFR) is calculated using the 2020 CKD-EPI creatinine equation. This equation utilizes serum creatinine, sex, and age as parameters. The creatinine assay has traceable calibration to isotope dilution-mass spectrometry. Refer to KDIGO guidelines for clinical interpretation. In patients with unstable renal function, e.g. those with acute kidney injury, the eGFR may not accurately reflect actual GFR. Performed By: #### 2 4321-2 ####[facility] LABORATORYCLIA [id number] [place] [id number] [place] Glucose [Mass/Vol] 106 mg/dL High 74-99 [facility] Comment on above: Order Comment: Kelsi huff Type: BLOOD SPECIMENOrdering Facility: [facility] Address: [address] [place] [address] Result Comment: The [place] [employer] (ADA) provides guidance for cutoff values for fasting glucose and random glucose. The ADA defines fasting as no caloric intake for at least 8 hours. Fasting plasma glucose results between 100 to 125 [...] Standards of Medical Care in Diabetes 2016, [place] [employer]. Diabetes Care. 2016.39(Suppl 1). Performed By: #### 2 4321-2 ####[facility] LABORATORYCLIA [id number] [place] [address] [place] Potassium [Moles/Vol] 4.6 mmol/L Normal 3.7-5.1 [facility] Comment on above: Order Comment: Speci men Type: BLOOD SPECIMENOrdering Facility: [facility] Address: [address] [place] [address] Performed By: #### 2 4321-2 ####ADAM LABORATORYCLIA [id number] [address] STATES OF [facility] Sodium [Moles/Vol] 132 mmol/L Low 136-144 [facility] Comment on above: Order Comment: Speci men Type: BLOOD SPECIMENOrdering Facility: [facility] Address: [address] [place] [address] Performed By: #### 2 4321-2 ####ADAM LABORATORYCLIA [id number] [address] [place] Urea nitrogen [Mass/Vol] 31 mg/dL High 9-24 [facility] Comment on above: Order Comment: Speci men Type: BLOOD SPECIMENOrdering Facility: [facility] Address: [address] [place] [address] Performed By: #### 2 4321-2 ####ADAM LABORATORYCLIA [id number] [address] STATES OF [facility] CBC panel Auto (Bld)on 01-11 Erythrocyte distribution width (RBC) [Ratio] 15.9 % High 11.5-15.0 [facility] Comment on above: Order Comment: Speci men Type: BLOOD SPECIMENOrdering Facility: [facility] Address: [address] [place] [address] Performed By: #### 5 8410-2 ####ADAM LABORATORYCLIA [id number] [address] STATES [facility] Hematocrit (Bld) [Volume fraction] 35.4 % Low 39.0-51.0 [facility] Comment on above: Order Comment: Speci men Type: BLOOD SPECIMENOrdering Facility: [facility] Address: [address] [place] [address] Performed By: #### 5 8410-2 ####ADAM LABORATORYCLIA [id number] [address] [place] Hemoglobin (Bld) [Mass/Vol] 11.4 g/dL Low 13.0-17.0 [facility] Comment on above: Order Comment: Speci men Type: BLOOD SPECIMENOrdering Facility: [facility] Address: [address] [place] [address] Performed By: #### 5 8410-2 ####ADAM LABORATORYCLIA [id number] [address] MCH (RBC) [Entitic mass] 31.4 pg Normal 26.0-34.0 [facility] Comment on above: Order Comment: Speci men Type: BLOOD SPECIMENOrdering Facility: [facility] Address: [address] [place] [address] Performed By: #### 5 8410-2 ####ADAM LABORATORYCLIA [id number] [address] MCHC (RBC) [Mass/Vol] 32.2 g/dL Normal 30.5-36.0 [facility] Comment on above: Order Comment: Speci men Type: BLOOD SPECIMENOrdering Facility: [facility] Address: [address] [place] [address] Performed By: #### 5 8410-2 ####ADAM LABORATORYCLIA [id number] [address] MCV (RBC) [Entitic vol] 97.5 fL Normal 80.0-100.0 [facility] Comment on above: Order Comment: Speci men Type: BLOOD SPECIMENOrdering Facility: [facility] Address: [address] [place] [address] Performed By: #### 5 8410-2 ####ADAM LABORATORYCLIA [id number] [address] Nucleated RBC (Bld) [#/Vol] 10*3/uL Normal <0.01 [facility] Comment on above: Order Comment: Speci men Type: BLOOD SPECIMENOrdering Facility: [facility] Address: [address] [place] [address] Performed By: #### 5 8410-2 ####ADAM LABORATORYCLIA [id number] [address] Platelet mean volume (Bld) [Entitic vol] 10.0 fL Normal 9.0-12.7 [facility] Comment on above: Order Comment: Kelsi huff Type: BLOOD SPECIMENOrdering Facility: [facility] Address: [address] [place] [address] Performed By: #### 5 8410-2 ####[facility] LABORATORYCLIA [id number] [address] [place] Platelets (Bld) [#/Vol] 143 10*3/uL Low 150-400 [facility] Comment on above: Order Comment: Kelsi huff Type: BLOOD SPECIMENOrdering Facility: [facility] Address: [address] [place] [address] Result Comment: No c lot detected. Performed By: #### 5 8410-2 ####[facility] LABORATORYCLIA [id number] [address] RBC (Bld) [#/Vol] 3.63 10*6/uL Low 4.20-6.00 [facility] Comment on above: Order Comment: Kelsi huff Type: BLOOD SPECIMENOrdering Facility: [facility] Address: [address] [place] [address] Performed By: #### 5 8410-2 ####ADAM LABORATORYCLIA [id number] [address] WBC (Bld) [#/Vol] 5.49 10*3/uL Normal 3.70-11.00 [facility] Comment on above: Order Comment: Kelsi huff Type: BLOOD SPECIMENOrdering Facility: [facility] Address: [address] [place] [address] Performed By: #### 5 8410-2 ####ADAM LABORATORYCLIA [id number] [address] CONSULT PROGon 01-11-2025 CONSULT PROG HNO ID: [id number] Author: MARLENE HOLLEY MD Service: Nephrology Author Type: Physician Type: Consult Progress Note Filed: 01/11/2025 11:31 Note Text: NEPHROLOGY CONSULT PROGRESS NOTE Subjective INTERVAL HISTORY: The patient was seen and examined . No acute event overnight. PERTINENT ROS: GENERAL: No fever/chills. RESPIRATORY: Negative for cough, wheezing or shortness of breath. CARDIOVASCULAR: Negative for chest pain or palpitations. GI: Negative for nausea, vomiting, Diarrhea, abdominal pain. : Negative for dysuria and hematuria MEDICATIONS: Current Facility-Administered Medications Medication Dose Route Frequency atorvastatin 40 mg tab(s) (LIPITOR) 40 mg ORAL AT BEDTIME bumetanide 2 mg tab(s) (BUMEX) 2 mg ORAL DAILY midodrine 5 mg tab(s) (PROAMITINE) 5 mg ORAL TID pantoprazole DR 40 mg tab(s) (PROTONIX) 40 mg ORAL DAILY (6 AM) latanoprost 0.005 % 1 drop (XALATAN) 1 drop BOTH EYES AT BEDTIME melatonin 9 mg tab(s) 9 mg ORAL AT BEDTIME PRN dextrose 40 % 15 g 15 g ORAL PRN Or glucagon 1 mg injection 1 mg INTRAMUSCULAR PRN Or dextrose 10% iv bolus 12.5 g INTRAVENOUS PRN NaCl 0.9% iv flush bag 20 mL INTRAVENOUS PRN insulin lispro injection (rapid acting) (ADMElog) SUBCUTANEOUS w MEALS acetaminophen 1,000 mg tab(s) (TYLENOL) 1,000 mg ORAL q 8 H ondansetron (PF) 4 mg injection (ZOFRAN) 4 mg INTRAVENOUS q 6 H PRN ipratropium-albuterol 3 mL nebulizer solution (DUONEB) 3 mL INHALATION QID insulin glargine 6 Units pen (long acting) 6 Units SUBCUTANEOUS AT BEDTIME apixaban 5 mg tab(s) (ELIQUIS) 5 mg ORAL BID traZODone 25 mg tab(s) (DESYREL) 25 mg ORAL AT BEDTIME diazePAM 5 mg tab(s) (VALIUM) 5 mg ORAL DAILY PRN Objective PHYSICAL EXAM: BP 109/54 Pulse 96 Temp 36.9 ?C (98.5 ?F) (Oral) Resp 17 Wt 74.9 kg (165 lb 2 oz) SpO2 93% BMI 23.69 kg/m? Intake/Output Summary (Last 24 hours) at 01/11/2025 1130 Last data filed at 01/11/2025 0332 Gross per 24 hour Intake 1445 ml Output 2900 ml Net -1455 ml GENERAL: NAD HEENT : NCAT, MMM and pink EYES: Conjunctiva -Pallor, Non icterus sclera. NECK: supple, No JVD, LUNGS: CTA without rales or wheeze, diminished breath sounds, CV: no murmurs, clicks, or gallops. ABDOMEN: soft, NT, BS normal EDEMA : no Lower extremity/ no Dependent edema DATA: Diagnostic tests reviewed for today's visit: Most recent labs and imaging results. Recent Labs 01/11/25 0732 01/10/25 0622 01/09/25 0610 WBC 5.49 6.24 5.68 HB 11.4* 12.0* 11.7* HCT 35.4* 37.2* 36.7* PLT 143* 145* 132* NA 132* 134* 133* K 4.6 4.6 4.9 CHLOR 93* 92* 91* CO2 28 26 29 BUN 31* 50* 34* CREAT 3.43* 4.82* 3.61* GLUC 106* 94 57* CA 10.1 10.4* 10.0 MG -- 2.3 2.3 Recent Labs 01/10/25 0622 01/09/25 0610 TPROT 7.3 6.9 ALB 3.5* 3.8* ALT 12 11 AST 25 24 ALKPHOS 202* 200* TBILI 0.9 0.9 Assessment/Plan 1. ESRD on hemodialysis 2. Anemia of chronic kidney disease 3. Secondary hyperparathyroidism 4. Hypertension but a history of intradialytic hypotension and on midodrine 5. Left hip pain and CT scan of pelcis : minimally displaced fracture of left sacrum with questionably minimally displaced fractures of the left superior pelvic ramus. 6. Chronic combined systolic and diastolic failure 7. Coronary disease status post CABG 7. Atrial fibrillation on Eliquis 8. Type 2 diabetes Plan of management - - Patient had a session of intermittent hemodialysis yesterday and tolerated fairly well with 2.5 L of ultrafiltration. Labs are acceptable today and no acute indication for renal replacement therapy today. Will plan for session of hemodialysis again on Sunday. - Confusion, improving, urine cultures have been negative. Hemodialysis for 3.5 hours, 2K bath, ultrafiltration 1 to 2 L Hemoglobin 11.7 no need for BETTIE therapy Iron study with transferrin saturation 6.1, will add ferritin to a.m. labs Continue BETTIE as needed and vitamin therapy with dialysis same as outpatient hemodialysis center. Continue on Bumex 2 mg once daily Continue on Renvela 1 tablet 3 times with each meal Continue midodrine 5 mg 3 times a day [facility] ALLIED HEALTHon 01-10-2025 [facility] HNO ID: [id number] Author: GARRISON HOLLY RT(R) Service: Radiology Author Type: Technologist Type: Allied Health Filed: 01/10/2025 15:23 Note Text: RADIOLOGY SERVICE PROGRESS NOTE DATE OF SERVICE: January 10, 2025 TIME OF SERVICE: 1520 EVENT: EXAM/PROCEDURE NOT COMPLETED - Patient refused exam/procedure. and Patient became claustrophobic, reaction was: Severe. ADDITIONAL EVENT DETAILS: ATTEMPTED TO SCAN PT. SOON COIL WAS PLACED OVER FACE, PT BECAME SEVERELY CLAUSTRO AND REFUSED THE MRI. BISMARK KNOWLES ON MADE AWARE AND SENT PT BACK TO FLOOR. SIGNATURE: RT Tonya(R) PATIENT NAME: Mauri Quinones DATE: January 10, 2025 TIME: 3:22 PM PAGER/CONTACT #: [facility] Basic metabolic 2000 panelon 01-10-2025 Anion gap [Moles/Vol] 16 mmol/L High 8-15 [facility] Comment on above: Order Comment: Kelsi huff Type: BLOOD SPECIMENOrdering Facility: [facility] Address: [address] [place], [place] [address] Performed By: #### 2 4325-3, 60079-2, ####[facility] LABORATORYCLIA [id number] [place] [address] [place] Calcium [Mass/Vol] 10.4 mg/dL High 8.5-10.2 [facility] Comment on above: Order Comment: Speci daria Type: BLOOD SPECIMENOrdering Facility: [facility] Address: [address] [place] [address] Performed By: #### 2 4325-3, 96077-8, ####[facility] LABORATORYCLIA [id number] [place] [address] [place] Chloride [Moles/Vol] 92 mmol/L Low 98-107 [facility] Comment on above: Order Comment: Speci men Type: BLOOD SPECIMENOrdering Facility: [facility] Address: [address] [place] [address] Performed By: #### 2 4325-3, 99405-2, ####AD[facility] LABORATORYCLIA [id number] [address] CO2 [Moles/Vol] 26 mmol/L Normal 22-30 [facility] Comment on above: Order Comment: Speci men Type: BLOOD SPECIMENOrdering Facility: [facility] Address: [address] [place] [address] Performed By: #### 2 4325-3, 74949-2, ####AD[facility] LABORATORYCLIA [id number] [address] Creatinine [Mass/Vol] 4.82 mg/dL High 0.73-1.22 [facility] Comment on above: Order Comment: Speci men Type: BLOOD SPECIMENOrdering Facility: [facility] Address: [address] [place] [address] Performed By: #### 2 4325-3, 01291-1, ####AD[facility] LABORATORYCLIA [id number] [address] Creatinine and Glomerular filtration rate.predicted panel (S/P/Bld) 12 mL/min/1.73m??? Low >=60 [facility] Comment on above: Order Comment: Speci men Type: BLOOD SPECIMENOrdering Facility: [facility] Address: [address] [place] [address] Result Comment: Caryl mated Glomerular Filtration Rate (eGFR) is calculated using the 2020 CKD-EPI creatinine equation. This equation utilizes serum creatinine, sex, and age as parameters. The creatinine assay has traceable calibration to isotope dilution-mass spectrometry. Refer to KDIGO guidelines for clinical interpretation. In patients with unstable renal function, e.g. those with acute kidney injury, the eGFR may not accurately reflect actual GFR. Performed By: #### 2 4325-3, 12794-6, ####ADAM LABORATORYCLIA [id number] [place] [address] [place] Glucose [Mass/Vol] 94 mg/dL Normal 74-99 [facility] Comment on above: Order Comment: Kelsi huff Type: BLOOD SPECIMENOrdering Facility: [facility] Address: [address] [place] [address] Result Comment: The [place] [employer] (ADA) provides guidance for cutoff values for fasting glucose and random glucose. The ADA defines fasting as no caloric intake for at least 8 hours. Fasting plasma glucose results between 100 to 125 [...] Standards of Medical Care in Diabetes 2016, [place] [employer]. Diabetes Care. 2016.39(Suppl 1). Performed By: #### 2 4325-3, 44410-0, ####ADAM LABORATORYCLIA [id number] [place] [address] [place] Potassium [Moles/Vol] 4.6 mmol/L Normal 3.7-5.1 [facility] Comment on above: Order Comment: Kelsi huff Type: BLOOD SPECIMENOrdering Facility: [facility] Address: [address] [place] [address] Performed By: #### 2 4325-3, 27646-5, ####AD[facility] LABORATORYCLIA [id number] [place] [address] [place] Sodium [Moles/Vol] 134 mmol/L Low 136-144 [facility] Comment on above: Order Comment: Kelsi huff Type: BLOOD SPECIMENOrdering Facility: [facility] Address: [address] [place] [address] Performed By: #### 2 4325-3, 08765-4, ####AD[facility] LABORATORYCLIA [id number] [place] [address] [place] Urea nitrogen [Mass/Vol] 50 mg/dL High 9-24 [facility] Comment on above: Order Comment: Speci men Type: BLOOD SPECIMENOrdering Facility: [facility] Address: [address] [place] [address] Performed By: #### 2 4325-3, 06333-3, 58472-2 ####ADAM LABORATORYCLIA [id number] [address] STATES [facility] CBC panel Auto (Bld)on 01-10 Erythrocyte distribution width (RBC) [Ratio] 15.6 % High 11.5-15.0 [facility] Comment on above: Order Comment: Speci men Type: BLOOD SPECIMENOrdering Facility: [facility] Address: [address] [place] [address] Performed By: #### 5 8410-2 ####[facility] LABORATORYCLIA [id number] [address] Hematocrit (Bld) [Volume fraction] 37.2 % Low 39.0-51.0 [facility] Comment on above: Order Comment: Speci men Type: BLOOD SPECIMENOrdering Facility: [facility] Address: [address] [place] [address] Performed By: #### 5 8410-2 ####AD[facility] LABORATORYCLIA [id number] [address] [place] Hemoglobin (Bld) [Mass/Vol] 12.0 g/dL Low 13.0-17.0 [facility] Comment on above: Order Comment: Speci men Type: BLOOD SPECIMENOrdering Facility: [facility] Address: [address] [place] [address] Performed By: #### 5 8410-2 ####[facility] LABORATORYCLIA [id number] [address] MCH (RBC) [Entitic mass] 31.5 pg Normal 26.0-34.0 [facility] Comment on above: Order Comment: Speci men Type: BLOOD SPECIMENOrdering Facility: [facility] Address: [address] [place] [address] Performed By: #### 5 8410-2 ####AD[facility] LABORATORYCLIA [id number] [address] MCHC (RBC) [Mass/Vol] 32.3 g/dL Normal 30.5-36.0 [facility] Comment on above: Order Comment: Speci men Type: BLOOD SPECIMENOrdering Facility: [facility] Address: [address] [place] [address] Performed By: #### 5 8410-2 ####AD[facility] LABORATORYCLIA [id number] [place] [address] [place] MCV (RBC) [Entitic vol] 97.6 fL Normal 80.0-100.0 [facility] Comment on above: Order Comment: Speci men Type: BLOOD SPECIMENOrdering Facility: [facility] Address: [address] [place] [address] Performed By: #### 5 8410-2 ####AD[facility] LABORATORYCLIA [id number] [address] Nucleated RBC (Bld) [#/Vol] 10*3/uL Normal <0.01 [facility] Comment on above: Order Comment: Speci men Type: BLOOD SPECIMENOrdering Facility: [facility] Address: [address] [place] [address] Performed By: #### 5 8410-2 ####ADAM LABORATORYCLIA [id number] [address] [place] Platelet mean volume (Bld) [Entitic vol] 10.5 fL Normal 9.0-12.7 [facility] Comment on above: Order Comment: Speci men Type: BLOOD SPECIMENOrdering Facility: [facility] Address: [address] [place] [address] Performed By: #### 5 8410-2 ####AD[facility] LABORATORYCLIA [id number] [address] [place] Platelets (Bld) [#/Vol] 145 10*3/uL Low 150-400 [facility] Comment on above: Order Comment: Speci men Type: BLOOD SPECIMENOrdering Facility: [facility] Address: [address] [place] [address] Result Comment: No c lot detected. Performed By: #### 5 8410-2 ####ADAM LABORATORYCLIA [id number] [address] RBC (Bld) [#/Vol] 3.81 10*6/uL Low 4.20-6.00 [facility] Comment on above: Order Comment: Speci men Type: BLOOD SPECIMENOrdering Facility: [facility] Address: [address] [place] [address] Performed By: #### 5 8410-2 ####ADAM LABORATORYCLIA [id number] [address] WBC (Bld) [#/Vol] 6.24 10*3/uL Normal 3.70-11.00 [facility] Comment on above: Order Comment: Speci men Type: BLOOD SPECIMENOrdering Facility: [facility] Address: [address] [place] [address] Performed By: #### 5 8410-2 ####ADAM LABORATORYCLIA [id number] [address] CONSULT PROGon 01-10-2025 CONSULT PROG HNO ID: [id number] Author: MARLENE HOLLEY MD Service: Nephrology Author Type: Physician Type: Consult Progress Note Filed: 01/10/2025 16:26 Note Text: NEPHROLOGY CONSULT PROGRESS NOTE Subjective INTERVAL HISTORY: The patient was seen and examined . No acute event overnight. PERTINENT ROS: GENERAL: No fever/chills. RESPIRATORY: Negative for cough, wheezing or shortness of breath. CARDIOVASCULAR: Negative for chest pain or palpitations. GI: Negative for nausea, vomiting, Diarrhea, abdominal pain. : Negative for dysuria and hematuria MEDICATIONS: Current Facility-Administered Medications Medication Dose Route Frequency atorvastatin 40 mg tab(s) (LIPITOR) 40 mg ORAL AT BEDTIME bumetanide 2 mg tab(s) (BUMEX) 2 mg ORAL DAILY midodrine 5 mg tab(s) (PROAMITINE) 5 mg ORAL TID pantoprazole DR 40 mg tab(s) (PROTONIX) 40 mg ORAL DAILY (6 AM) latanoprost 0.005 % 1 drop (XALATAN) 1 drop BOTH EYES AT BEDTIME melatonin 9 mg tab(s) 9 mg ORAL AT BEDTIME PRN dextrose 40 % 15 g 15 g ORAL PRN Or glucagon 1 mg injection 1 mg INTRAMUSCULAR PRN Or dextrose 10% iv bolus 12.5 g INTRAVENOUS PRN NaCl 0.9% iv flush bag 20 mL INTRAVENOUS PRN insulin lispro injection (rapid acting) (ADMElog) SUBCUTANEOUS w MEALS acetaminophen 1,000 mg tab(s) (TYLENOL) 1,000 mg ORAL q 8 H ondansetron (PF) 4 mg injection (ZOFRAN) 4 mg INTRAVENOUS q 6 H PRN ipratropium-albuterol 3 mL nebulizer solution (DUONEB) 3 mL INHALATION QID insulin glargine 6 Units pen (long acting) 6 Units SUBCUTANEOUS AT BEDTIME apixaban 5 mg tab(s) (ELIQUIS) 5 mg ORAL BID traZODone 25 mg tab(s) (DESYREL) 25 mg ORAL AT BEDTIME Objective PHYSICAL EXAM: BP 111/63 Pulse 76 Temp 36.1 ?C (97 ?F) (Temporal) Resp 20 Wt 74.9 kg (165 lb 2 oz) SpO2 100% BMI 23.69 kg/m? Intake/Output Summary (Last 24 hours) at 01/10/2025 1626 Last data filed at 01/10/2025 1434 Gross per 24 hour Intake 620 ml Output 2925 ml Net -2305 ml GENERAL: NAD HEENT : NCAT, MMM and pink EYES: Conjunctiva -Pallor, Non icterus sclera. NECK: supple, No JVD, LUNGS: CTA without rales or wheeze, diminished breath sounds, CV: no murmurs, clicks, or gallops. ABDOMEN: soft, NT, BS normal EDEMA : no Lower extremity/ no Dependent edema DATA: Diagnostic tests reviewed for today's visit: Most recent labs and imaging results. Recent Labs 01/10/25 0622 01/09/25 0610 01/08/25 0444 WBC 6.24 5.68 6.19 HB 12.0* 11.7* 11.4* HCT 37.2* 36.7* 36.0* PLT 145* 132* 122* NA 134* 133* 134* K 4.6 4.9 5.3* CHLOR 92* 91* 91* CO2 26 29 29 BUN 50* 34* 54* CREAT 4.82* 3.61* 4.87* GLUC 94 57* 100* CA 10.4* 10.0 9.9 MG 2.3 2.3 -- Recent Labs 01/10/25 0622 01/09/25 0610 TPROT 7.3 6.9 ALB 3.5* 3.8* ALT 12 11 AST 25 24 ALKPHOS 202* 200* TBILI 0.9 0.9 Assessment/Plan 1. ESRD on hemodialysis 2. Anemia of chronic kidney disease 3. Secondary hyperparathyroidism 4. Hypertension but a history of intradialytic hypotension and on midodrine 5. Left hip pain and CT scan of pelcis : minimally displaced fracture of left sacrum with questionably minimally displaced fractures of the left superior pelvic ramus. 6. Chronic combined systolic and diastolic failure 7. Coronary disease status post CABG 7. Atrial fibrillation on Eliquis 8. Type 2 diabetes Plan of management - Patient had a session of intermittent hemodialysis today tolerated fairly well with 2.9 L of ultrafiltration and patient has been clinically improving. - Pleasantly confused, urinalysis with stigmata of UTI, urine cultures pending. Hemodialysis for 3.5 hours, 2K bath, ultrafiltration 1 to 2 L Hemoglobin 11.7 no need for BETTIE therapy Iron study with transferrin saturation 6.1, will add ferritin to a.m. labs Continue BETTIE as needed and vitamin therapy with dialysis same as outpatient hemodialysis center. Continue on Bumex 2 mg once daily Continue on Renvela 1 tablet 3 times with each meal Continue midodrine 5 mg 3 times a day Normal [facility]20 25 Cortisol [Mass/Vol] 12.3 ug/dL Normal 4.8-19.5 [facility] Comment on above: Order Comment: Speci men Type: BLOOD SPECIMENOrdering Facility: [facility] Address: [address] [place] [address] Result Comment: [facility] ided reference range is from 6-10 AM sample collection time. Cortisol Reference Range: 6-10 AM = 4.8-19.5 ug/dL, 4-8 PM = 2.5-11.9 ug/dL Performed By: #### 2 143-6 ####[facility] LABCLIA [id number] [address] [place] HBV surface Ag Ser Qlon 05- HBV surface Ag Ql (S) Negative Normal Negative [facility] Comment on above: Order Comment: Speci men Type: BLOOD SPECIMENOrdering Facility: [facility] Address: [address] [place] [address] Performed By: #### 5 195-3 ####[facility] LABCLIA [id number] [place] [address] [place] Hepatic function 2000 panelo n 01-10-2025 Albumin [Mass/Vol] 3.5 g/dL Low 3.9-4.9 [facility] Comment on above: Order Comment: Speci men Type: BLOOD SPECIMENOrdering Facility: [facility] Address: [address] [place] [address] Performed By: #### 2 4325-3, 03249-8, 19206-8 ####ADAM LABORATORYCLIA [id number] [place] [address] [place] [facility] ALP [Catalytic activity/Vol] 202 U/L High 38-113 [facility] Comment on above: Order Comment: Speci men Type: BLOOD SPECIMENOrdering Facility: [facility] Address: [address] [place] [address] Performed By: #### 2 4325-3, 47054-5, ####AD[facility] LABORATORYCLIA [id number] [address] [place] OF [facility] ALT [Catalytic activity/Vol] 12 U/L Normal 10-54 [facility] Comment on above: Order Comment: Speci men Type: BLOOD SPECIMENOrdering Facility: [facility] Address: [address] [place] [address] Performed By: #### 2 4325-3, 44820-0, ####ADAM LABORATORYCLIA [id number] [place] [id number] [place] AST [Catalytic activity/Vol] 25 U/L Normal 14-40 [facility] Comment on above: Order Comment: Speci men Type: BLOOD SPECIMENOrdering Facility: [facility] Address: [address] [place], [place] [address], [place] [address] Performed By: #### 2 4325-3, 81605-1, ####AD[facility] LABORATORYCLIA [id number] [place] [address] [place] Bilirubin [Mass/Vol] 0.9 mg/dL Normal 0.2-1.3 [facility] Comment on above: Order Comment: Speci men Type: BLOOD SPECIMENOrdering Facility: [facility] Address: [address] [place] [id number] Performed By: #### 2 4325-3, 52333-3, ####AD[facility] LABORATORYCLIA [id number] [place] [address] [place] Bilirubin.conjugated [Mass/Vol] 0.5 mg/dL High <0.3 [facility] Comment on above: Order Comment: Speci men Type: BLOOD SPECIMENOrdering Facility: [facility] Address: [address] [place] [address] Performed By: #### 2 4325-3, 74255-7, ####AD[facility] LABORATORYCLIA [id number] [place] [address] [place] Protein [Mass/Vol] 7.3 g/dL Normal 6.3-8.0 [facility] Comment on above: Order Comment: Speci men Type: BLOOD SPECIMENOrdering Facility: [facility] Address: [address] [place] [address] Performed By: #### 2 4325-3, 56009-8, ####ADAM LABORATORYCLIA [id number] [place] [id number] [place] Magnesium SerPl-mCncon 01-10 Magnesium [Mass/Vol] 2.3 mg/dL Normal 1.7-2.3 [facility] Comment on above: Order Comment: Speci men Type: BLOOD SPECIMENOrdering Facility: [facility] Address: [address] [place] [address] Performed By: #### 2 4325-3, 34484-3, ####ADAM LABORATORYCLIA [id number] [place] [address] [place] ARTERIAL BLOOD GASESon 01-09 Base excess Calc (Bld) [Moles/Vol] 3 mmol/L High 0-2 [facility] Comment on above: Order Comment: Speci men Type: ARTERIAL BLOOD SPECIMENOrdering Facility: [facility] Address: [address] [place] [address] Performed By: #### A LLBG ####[facility] [id number] [facility] [id number] [address] [address] Carboxyhemoglobin (BldA) [Mass fraction] 1.6 % Normal 0.0-2.0 [facility] Comment on above: Order Comment: Speci men Type: ARTERIAL BLOOD SPECIMENOrdering Facility: [facility] Address: [address] [place] [address] Result Comment: Carb oxyhemoglobin Reference Range for Smokers: 2.0-8.0% Performed By: #### A LLBG ####[facility] [id number] [facility] RESPIRATORY [id number] [address] CO2 (Bld) [Partial pressure] 55 mm Hg High 36-46 [facility] Comment on above: Order Comment: Speci men Type: ARTERIAL BLOOD SPECIMENOrdering Facility: [facility] Address: [address] [place] [address] Performed By: #### A LLBG ####[facility] [id number] [facility]OS[facility] RESPIRATORY [id number] [address] [address] CO2 adjusted to patient's actual temperature (Bld) [Partial pressure] Normal [facility] Comment on above: Order Comment: Speci men Type: ARTERIAL BLOOD SPECIMENOrdering Facility: [facility] Address: [address] [place] [address] Performed By: #### A LLBG ####[facility] [id number] [facility] RESPIRATORY [id number] [address] [address] HCO3 (Bld) [Moles/Vol] 29 mmol/L High 22-26 [facility] Comment on above: Order Comment: Speci men Type: ARTERIAL BLOOD SPECIMENOrdering Facility: [facility] Address: [address] [place] [address] Performed By: #### A LLBG ####[facility] [id number] [facility]OS[facility] RESPIRATORY [id number] [address] [address] Hemoglobin (Bld) [Mass/Vol] 12.3 g/dL Low 13.0-17.0 [facility] Comment on above: Order Comment: Speci men Type: ARTERIAL BLOOD SPECIMENOrdering Facility: [facility] Address: [address] [place] [address] Performed By: #### A LLBG ####[facility] [id number] [facility]OS[facility] RESPIRATORY [id number] [address] [address] Lactate [Moles/Vol] 1.1 mmol/L Normal 0.5-2.2 [facility] Comment on above: Order Comment: Speci men Type: ARTERIAL BLOOD SPECIMENOrdering Facility: [facility] Address: [address] [place] [id number] Performed By: #### A LLBG ####[place] [id number] [place] [address] RESPIRATORY [id number] [address] LITERS 2 Liters/min Normal [facility] Comment on above: Order Comment: Speci men Type: ARTERIAL BLOOD SPECIMENOrdering Facility: [facility] Address: [address] [place] [address] Performed By: #### A LLBG ####[place] RESPIRATORYKELSEY VILLE [id number] [facility] RESPIRATORY [id number] [address] [address] Methemoglobin (Bld) [Mass fraction] % Normal 0.0-1.5 [facility] Comment on above: Order Comment: Speci men Type: ARTERIAL BLOOD SPECIMENOrdering Facility: [facility] Address: [address] [place] [address] Performed By: #### A LLBG ####[id number] [place] [address] RESPIRATORY [id number] [address] [address] O2 THERAPY NC = Nasal Cannula Normal [facility] Comment on above: Order Comment: Speci men Type: ARTERIAL BLOOD SPECIMENOrdering Facility: [facility] Address: [address] [place] [address] Performed By: #### A LLBG ####[facility] RESPIRATORYIA [id number] [facility]OS[facility] RESPIRATORY [id number] [address] [address] Oxygen (Bld) [Partial pressure] 103 mm Hg High 85-95 [facility] Comment on above: Order Comment: Speci men Type: ARTERIAL BLOOD SPECIMENOrdering Facility: [facility] Address: [address] [place] [address] Performed By: #### A LLBG ####[place] [id number] [place] [address] RESPIRATORY [id number] [address] Oxygen adjusted to patient's actual temperature (Bld) [Partial pressure] Normal [facility] Comment on above: Order Comment: Speci men Type: ARTERIAL BLOOD SPECIMENOrdering Facility: [facility] Address: [address] [place] [address] Performed By: #### A LLBG ####[facility] RESPIRATORYIA [id number] [facility]OSP[facility] RESPIRATORY [id number] [address] Oxyhemoglobin (BldA) [Mass fraction] 97 % Normal 95-98 [facility] Comment on above: Order Comment: Speci men Type: ARTERIAL BLOOD SPECIMENOrdering Facility: [facility] Address: [address] [place] [address] Performed By: #### A LLBG ####[facility]ORY[facility] [id number] [facility]OSP[facility] RESPIRATORY [id number] [address] pH (Bld) 7.34 [pH] Low 7.35-7.45 [facility] Comment on above: Order Comment: Speci men Type: ARTERIAL BLOOD SPECIMENOrdering Facility: [facility] Address: [address] [place] [address] Performed By: #### A LLBG ####[facility] RESPIRATORYCLIA [id number] [facility]OS[facility] RESPIRATORY [id number] [address] pH adjusted to patient's actual temperature (Bld) Normal [facility] Comment on above: Order Comment: Speci men Type: ARTERIAL BLOOD SPECIMENOrdering Facility: [facility] Address: [address] [place] [address] Performed By: #### A LLBG ####[facility] RESPIRATORYIA [id number] [facility]OSPITAL RESPIRATORY [id number] [address] [address] Potassium [Moles/Vol] 4.6 mmol/L Normal 3.5-5.0 [facility] Comment on above: Order Comment: Speci men Type: ARTERIAL BLOOD SPECIMENOrdering Facility: [facility] Address: [address] [place] [address] Performed By: #### A LLBG ####[facility]ORY[facility] [id number] [facility]OS[facility] RESPIRATORY [id number] [address] Bacteria Ur Culton 5 Bacteria identified Cx Nom (U) CULTURE, URINE: No growth (<100 CFU/ml) Normal [facility] Comment on above: Performed By: #### 6 30-4 ####[facility] LABCLIA [id number] [address] [address] [place] Basic metabolic 2000 panelon 01-09-2025 Anion gap [Moles/Vol] 13 mmol/L Normal 8-15 [facility] Comment on above: Order Comment: Speci men Type: BLOOD SPECIMENOrdering Facility: [facility] Address: [address] [place] [address] Performed By: #### 1 9123-9, 2276-4, 14768-8, 61753-6 ####[facility] LABORATORYCLIA [id number] [place] [address] [place] Calcium [Mass/Vol] 10.0 mg/dL Normal 8.5-10.2 [facility] Comment on above: Order Comment: Speci men Type: BLOOD SPECIMENOrdering Facility: [facility] Address: [address] [place] [address] Performed By: #### 1 9123-9, 2276-4, 05002-2, 42353-0 ####[facility] LABORATORYCLIA [id number] [place] [address] [place] Chloride [Moles/Vol] 91 mmol/L Low 98-107 [facility] Comment on above: Order Comment: Speci men Type: BLOOD SPECIMENOrdering Facility: [facility] Address: [address] [place] [address] Performed By: #### 1 9123-9, 2276-4, 21097-3, 30742-4 ####[facility] LABORATORYCLIA [id number] [place] [address] [place] CO2 [Moles/Vol] 29 mmol/L Normal 22-30 [facility] Comment on above: Order Comment: Speci men Type: BLOOD SPECIMENOrdering Facility: [facility] Address: [address] [place] [address] Performed By: #### 1 9123-9, 2276-4, 98768-1, 93483-0 ####[facility] LABORATORYCLIA [id number] [place] [address] [place] Creatinine [Mass/Vol] 3.61 mg/dL High 0.73-1.22 [facility] Comment on above: Order Comment: Speci men Type: BLOOD SPECIMENOrdering Facility: [facility] Address: [address] [place] [address] Performed By: #### 1 9123-9, 2276-4, 80469-6, 56275-2 ####[facility] LABORATORYCLIA [id number] [place] [address] [place] [facility] [place] Creatinine and Glomerular filtration rate.predicted panel (S/P/Bld) 18 mL/min/1.73m??? Low >=60 [facility] Comment on above: Order Comment: Speci men Type: BLOOD SPECIMENOrdering Facility: [facility] Address: [address] [place] [address] Result Comment: Caryl mated Glomerular Filtration Rate (eGFR) is calculated using the 2020 CKD-EPI creatinine equation. This equation utilizes serum creatinine, sex, and age as parameters. The creatinine assay has traceable calibration to isotope dilution-mass spectrometry. Refer to KDIGO guidelines for clinical interpretation. In patients with unstable renal function, e.g. those with acute kidney injury, the eGFR may not accurately reflect actual GFR. Performed By: #### 1 9123-9, 2276-4, 20479-0, 94476-9 ####[facility] LABORATORYCLIA [id number] [place] [address] [place] Glucose [Mass/Vol] 57 mg/dL Low 74-99 [facility] Comment on above: Order Comment: Kelsi huff Type: BLOOD SPECIMENOrdering Facility: [facility] Address: [address] [place], [place] [address] Result Comment: The [place] [employer] (ADA) provides guidance for cutoff values for fasting glucose and random glucose. The ADA defines fasting as no caloric intake for at least 8 hours. Fasting plasma glucose results between 100 to 125 [...] Standards of Medical Care in Diabetes 2016, [place] [employer]. Diabetes Care. 2016.39(Suppl 1). Performed By: #### 1 9123-9, 6-4, 63726-7, 50347-2 ####[facility] LABORATORYCLIA [id number] [place] [id number] [place] Potassium [Moles/Vol] 4.9 mmol/L Normal 3.7-5.1 [facility] Comment on above: Order Comment: Kelsi huff Type: BLOOD SPECIMENOrdering Facility: [facility] Address: [address] [place] [address] Performed By: #### 1 9123-9, 6-4, 87454-8, 14585-8 ####[facility] LABORATORYCLIA [id number] [place] [address] [place] Sodium [Moles/Vol] 133 mmol/L Low 136-144 [facility] Comment on above: Order Comment: Speci men Type: BLOOD SPECIMENOrdering Facility: [facility] Address: [address] [place] [address] Performed By: #### 1 9123-9, 2276-4, 02192-9, 42764-7 ####[facility] LABORATORYCLIA [id number] [place] [address] [place] Urea nitrogen [Mass/Vol] 34 mg/dL High 9-24 [facility] Comment on above: Order Comment: Speci men Type: BLOOD SPECIMENOrdering Facility: [facility] Address: [address] [place] [address] Performed By: #### 1 9123-9, 2276-4, 46453-1, 37700-7 ####[facility] LABORATORYCLIA [id number] [address] [place] CBC panel Auto (Bld)on 01-09 Erythrocyte distribution width (RBC) [Ratio] 15.6 % High 11.5-15.0 [facility] Comment on above: Order Comment: Speci men Type: BLOOD SPECIMENOrdering Facility: [facility] Address: [address] [place] [address] Performed By: #### 5 8410-2 ####[facility] LABORATORYCLIA [id number] [address] [place] Hematocrit (Bld) [Volume fraction] 36.7 % Low 39.0-51.0 [facility] Comment on above: Order Comment: Speci men Type: BLOOD SPECIMENOrdering Facility: [facility] Address: [address] [place] [address] Performed By: #### 5 8410-2 ####[facility] LABORATORYCLIA [id number] [address] [place] Hemoglobin (Bld) [Mass/Vol] 11.7 g/dL Low 13.0-17.0 [facility] Comment on above: Order Comment: Speci men Type: BLOOD SPECIMENOrdering Facility: [facility] Address: [address] [place] [address] Performed By: #### 5 8410-2 ####[facility] LABORATORYCLIA [id number] [address] MCH (RBC) [Entitic mass] 31.5 pg Normal 26.0-34.0 [facility] Comment on above: Order Comment: Speci men Type: BLOOD SPECIMENOrdering Facility: [facility] Address: [address] [place] [address] Performed By: #### 5 8410-2 ####ADAM LABORATORYCLIA [id number] [address] MCHC (RBC) [Mass/Vol] 31.9 g/dL Normal 30.5-36.0 [facility] Comment on above: Order Comment: Speci men Type: BLOOD SPECIMENOrdering Facility: [facility] Address: [address] [place] [address] Performed By: #### 5 8410-2 ####ADAM LABORATORYCLIA [id number] [address] MCV (RBC) [Entitic vol] 98.9 fL Normal 80.0-100.0 [facility] Comment on above: Order Comment: Speci men Type: BLOOD SPECIMENOrdering Facility: [facility] Address: [address] [place] [address] Performed By: #### 5 8410-2 ####ADAM LABORATORYCLIA [id number] [address] Nucleated RBC (Bld) [#/Vol] 10*3/uL Normal <0.01 [facility] Comment on above: Order Comment: Speci men Type: BLOOD SPECIMENOrdering Facility: [facility] Address: [address] [place] [address] Performed By: #### 5 8410-2 ####ADAM LABORATORYCLIA [id number] [address] Platelet mean volume (Bld) [Entitic vol] 10.3 fL Normal 9.0-12.7 [facility] Comment on above: Order Comment: Speci men Type: BLOOD SPECIMENOrdering Facility: [facility] Address: [address] [place] [address] Performed By: #### 5 8410-2 ####ADAM LABORATORYCLIA [id number] [address] Platelets (Bld) [#/Vol] 132 10*3/uL Low 150-400 [facility] Comment on above: Order Comment: Speci men Type: BLOOD SPECIMENOrdering Facility: [facility] Address: [address] [place] [address] Result Comment: No c lot detected. Performed By: #### 5 8410-2 ####ADAM LABORATORYCLIA [id number] [address] [place] RBC (Bld) [#/Vol] 3.71 10*6/uL Low 4.20-6.00 [facility] Comment on above: Order Comment: Speci men Type: BLOOD SPECIMENOrdering Facility: [facility] Address: [address] [place] [address] Performed By: #### 5 8410-2 ####ADAM LABORATORYCLIA [id number] [address] WBC (Bld) [#/Vol] 5.68 10*3/uL Normal 3.70-11.00 [facility] Comment on above: Order Comment: Speci men Type: BLOOD SPECIMENOrdering Facility: [facility] Address: [address] [place] [address] Performed By: #### 5 8410-2 ####ADAM LABORATORYCLIA [id number] [address] CNPNon 01-09-2025 CNPN Telephone (FAMPWS) -- MAURI QUINONES ([id number]) 1955 [facility] Date Time Provider Department 01/09/25 RIGOBERTO GOULD During your visit today, we recorded the following information about you: Rebecca Moe LPN 01/09/2025 9:27 AM Signed Tracie from [facility] calling patient was transferred to [facility] with fractured pelvis. Plan to discharge to SNF with dialysis when patient is ready. Allergies As of Date: 01/09/2025 Noted Allergy Reaction LYRICA (PREGABALIN) 03/23/2017 7 - Swelling Date Reviewed: 01/09/2025 Reviewed by: Ivet Weinstein, RN - Fully Assessed Reason for Visit: Patient Update [1234] Prescriptions as of 01/23/2025 - bumetanide (BUMEX) 2 mg tablet Take 1 tablet by mouth every Sunday, Sunday, Sunday, and Sunday. - apixaban (ELIQUIS) 5 mg tab(s) Take 1 tablet by mouth two times a day. - HYDROcodone-acetaminophen (NORCO) 5-325 mg per tablet Take 1 tablet by mouth once daily as needed (Give 1 tablets before physical therapy/on Sunday, , and Sunday for transport to dialysis, before weekly there is the bladder catheterization) for up to 7 days. - traZODone (DESYREL) 50 mg tablet Take 0.5 tablets by mouth daily at bedtime for 167 doses. - midodrine (PROAMITINE) 5 mg tablet Take 5 mg by mouth three times a day. - ammonium lactate (LAC-HYDRIN) 12 % cream Apply to affected area as needed. - Tadalafil (CIALIS) 20 mg tablet Take 1 tablet by mouth once daily as needed. Do not take at same time as doxazosin - pantoprazole DR (PROTONIX) 40 mg tablet Take 1 tablet by mouth every morning. - Insulin [place], Disposable, (BD ULTRA-FINE GOLDY PEN NEEDLE) 32 gauge x Use one needle for each dose. once/day. - atorvastatin (LIPITOR) 40 mg tablet Take 1 tablet by mouth daily at bedtime. - loratadine (CLARITIN) 10 mg tablet Take 1 tablet by mouth once daily. - sevelamer carbonate (RENVELA) 800 mg tablet Take 800 mg by mouth three times daily with meals. - B Complex-Vitamin C-Folic Acid (NEPHRO-SAVANAH) 0.8 mg tab Take 1 tablet by mouth every morning. - melatonin 5 mg tablet Take 10 mg by mouth at bedtime as needed for for insomnia. - acetaminophen (TYLENOL EX STR RAPID RELEASE ORAL) Take 1-2 capsules by mouth every 6 hours as needed (pain). - latanoprost (XALATAN) 0.005 % ophthalmic solution Use 1 Drop in both eyes daily at bedtime. into affected eye(s). 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] 09/24/2017 Hypertension, essential [I10] 10/23/2017 Lower leg edema [R60.0] 01/22/2018 12/02/2021 Chronic left hip pain [M25.552, G89.29] 03/04/2018 10/30/2022 Anemia of chronic renal failure, stage 3 (moder*03/05/2018 12/02/2021 Acute on chronic diastolic congestive heart zane*07/14/2018 Recurrent right pleural effusion [J90] 07/14/2018 12/02/2021 PVD (peripheral vascular disease) (HCC) [I73.9] 07/16/2018 Altered mental status [R41.82] 03/24/2019 07/05/2019 UTI (urinary tract infection) [N39.0] 03/24/2019 12/02/2021 Chronic combined systolic and diastolic CHF (co*03/24/2019 Hyperkalemia [E87.5] 03/24/2019 12/02/2021 Hypoxia [R09.02] 03/24/2019 12/02/2021 Hypoalbuminemia [E88.09] 03/24/2019 12/02/2021 GARRET (acute kidney injury) (HCC) [N17.9] 03/24/2019 12/02/2021 CKD (chronic kidney disease) stage 3, GFR 30-59*03/24/2019 04/18/2019 High phosphate levels [E83.39] 03/24/2019 12/02/2021 Hyponatremia [E87.1] 03/24/2019 12/02/2021 Delirium [R41.0] 03/29/2019 12/02/2021 Malnutrition of moderate degree (HCC) [E44.0] 04/01/2019 12/02/2021 Transition of care performed with sharing of cl*04/08/2019 04/18/2019 Chronic kidney disease, stage IV (severe) (HCC)*04/18/2019 12/02/2021 Ischemic cardiomyopathy [I25.5] 04/18/2019 Sprain of ligament of cervical spine region [S1*04/18/2019 12/02/2021 History of coronary artery bypass graft [Z95.1] 04/18/2019 History of ventricular tachycardia [Z86.79] 04/18/2019 Proliferative retinopathy of both eyes associat*06/17/2019 Flaccid neuropathic bladder, 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 Normal [facility] CONSULT PROGon 01-09-2025 CONSULT PROG HNO ID: [id number] Author: JOSAFAT LOREDO MD Service: Nephrology Author Type: Physician Type: Consult Progress Note Filed: 01/09/2025 08:18 Note Text: NEPHROLOGY CONSULT PROGRESS NOTE Subjective INTERVAL HISTORY: The patient was seen and examined . No acute event overnight. PERTINENT ROS: GENERAL: No fever/chills. RESPIRATORY: Negative for cough, wheezing or shortness of breath. CARDIOVASCULAR: Negative for chest pain or palpitations. GI: Negative for nausea, vomiting, Diarrhea, abdominal pain. : Negative for dysuria and hematuria MEDICATIONS: Current Facility-Administered Medications Medication Dose Route Frequency atorvastatin 40 mg tab(s) (LIPITOR) 40 mg ORAL AT BEDTIME bumetanide 2 mg tab(s) (BUMEX) 2 mg ORAL DAILY midodrine 5 mg tab(s) (PROAMITINE) 5 mg ORAL TID pantoprazole DR 40 mg tab(s) (PROTONIX) 40 mg ORAL DAILY (6 AM) latanoprost 0.005 % 1 drop (XALATAN) 1 drop BOTH EYES AT BEDTIME melatonin 9 mg tab(s) 9 mg ORAL AT BEDTIME PRN dextrose 40 % 15 g 15 g ORAL PRN Or glucagon 1 mg injection 1 mg INTRAMUSCULAR PRN Or dextrose 10% iv bolus 12.5 g INTRAVENOUS PRN NaCl 0.9% iv flush bag 20 mL INTRAVENOUS PRN insulin glargine 10 Units pen (long acting) 10 Units SUBCUTANEOUS AT BEDTIME insulin lispro injection (rapid acting) (ADMElog) SUBCUTANEOUS w MEALS acetaminophen 1,000 mg tab(s) (TYLENOL) 1,000 mg ORAL q 8 H ondansetron (PF) 4 mg injection (ZOFRAN) 4 mg INTRAVENOUS q 6 H PRN traZODone 50 mg tab(s) (DESYREL) 50 mg ORAL AT BEDTIME ipratropium-albuterol 3 mL nebulizer solution (DUONEB) 3 mL INHALATION QID Objective PHYSICAL EXAM: BP 111/60 Pulse 78 Temp 36.8 ?C (98.2 ?F) (Temporal) Resp 18 Wt 74.9 kg (165 lb 2 oz) SpO2 95% BMI 23.69 kg/m? Intake/Output Summary (Last 24 hours) at 01/09/2025 0816 Last data filed at 01/08/20251999 Gross per 24 hour Intake 340 ml Output 1000 ml Net -660 ml GENERAL: NAD HEENT : NCAT, MMM and pink EYES: Conjunctiva -Pallor, Non icterus sclera. NECK: supple, No JVD, LUNGS: CTA without rales or wheeze, diminished breath sounds, CV: no murmurs, clicks, or gallops. ABDOMEN: soft, NT, BS normal EDEMA : no Lower extremity/ no Dependent edema DATA: Diagnostic tests reviewed for today's visit: Most recent labs and imaging results. Recent Labs 01/09/25 0610 01/08/25 0444 WBC 5.68 6.19 HB 11.7* 11.4* HCT 36.7* 36.0* PLT 132* 122* NA 133* 134* K 4.9 5.3* CHLOR 91* 91* CO2 29 29 BUN 34* 54* CREAT 3.61* 4.87* GLUC 57* 100* CA 10.0 9.9 MG 2.3 -- Recent Labs 01/09/25 0610 TPROT 6.9 ALB 3.8* ALT 11 AST 24 ALKPHOS 200* TBILI 0.9 Assessment/Plan 1. ESRD on hemodialysis 2. Anemia of chronic kidney disease 3. Secondary hyperparathyroidism 4. Hypertension but a history of intradialytic hypotension and on midodrine 5. Left hip pain and CT scan of pelcis : minimally displaced fracture of left sacrum with questionably minimally displaced fractures of the left superior pelvic ramus. 6. Chronic combined systolic and diastolic failure 7. Coronary disease status post CABG 7. Atrial fibrillation on Eliquis 8. Type 2 diabetes Plan of management Underwent session of hemodialysis yesterday and 1 L of ultrafiltration was performed. Left upper AV fistula positive bruit and thrill. Next hemodialysis in a.m. Hemodialysis for 3.5 hours, 2K bath, ultrafiltration 1 to 2 L Hemoglobin 11.7 no need for BETTIE therapy Iron study with transferrin saturation 6.1, will add ferritin to a.m. labs Continue BETTIE as needed and vitamin therapy with dialysis same as outpatient hemodialysis center. Continue on Bumex 2 mg once daily Continue on Renvela 1 tablet 3 times with each meal Continue midodrine 5 mg 3 times a day Normal [facility] Ferritin [facility] 2024 Ferritin [Mass/Vol] 2365.0 ng/mL High 30.3-565.7 [facility] Comment on above: Order Comment: Speci men Type: BLOOD SPECIMENOrdering Facility: [facility] Address: [address] [id number] Performed By: #### 1 9123-9, 2276-4, 51540-0, 25396-5 ####[facility] LABORATORYCLIA [id number] [place], [place] [address] [place] [address] Hepatic function 2000 panelo n 01-09-2025 Albumin [Mass/Vol] 3.8 g/dL Low 3.9-4.9 [facility] Comment on above: Order Comment: Speci men Type: BLOOD SPECIMENOrdering Facility: [facility] Address: [address] [place] [address] Performed By: #### 1 9123-9, 6-4, 79387-1, 34117-2 ####[facility] LABORATORYCLIA [id number] [address] ALP [Catalytic activity/Vol] 200 U/L High 38-113 [facility] Comment on above: Order Comment: Speci men Type: BLOOD SPECIMENOrdering Facility: [facility] Address: [address] [place] [address] Performed By: #### 1 9123-9, 6-4, 69779-3, 11263-4 ####[facility] LABORATORYCLIA [id number] [address] ALT [Catalytic activity/Vol] 11 U/L Normal 10-54 [facility] Comment on above: Order Comment: Speci men Type: BLOOD SPECIMENOrdering Facility: [facility] Address: [address] [place] [address] Performed By: #### 1 9123-9, 6-4, 77529-9, 49170-3 ####[facility] LABORATORYCLIA [id number] [address] AST [Catalytic activity/Vol] 24 U/L Normal 14-40 [facility] Comment on above: Order Comment: Speci men Type: BLOOD SPECIMENOrdering Facility: [facility] Address: [address] [place] [address] Performed By: #### 1 9123-9, 6-4, 12939-5, 78354-3 ####ADAM LABORATORYCLIA [id number] [place] [id number] [facility] Bilirubin [Mass/Vol] 0.9 mg/dL Normal 0.2-1.3 [facility] Comment on above: Order Comment: Speci men Type: BLOOD SPECIMENOrdering Facility: [facility] Address: [address] [place] [address] Performed By: #### 1 9123-9, 2276-4, 06486-9, 55940-5 ####[facility] LABORATORYCLIA [id number] [place] [address] [facility] Bilirubin.conjugated [Mass/Vol] 0.5 mg/dL High <0.3 [facility] Comment on above: Order Comment: Speci men Type: BLOOD SPECIMENOrdering Facility: [facility] Address: [address] [place] [address] Performed By: #### 1 9123-9, 2276-4, 79501-3, 04482-4 ####[facility] LABORATORYCLIA [id number] [address] [facility] Protein [Mass/Vol] 6.9 g/dL Normal 6.3-8.0 [facility] Comment on above: Order Comment: Speci men Type: BLOOD SPECIMENOrdering Facility: [facility] Address: [address] [place] [address] Performed By: #### 1 9123-9, 6-4, 13740-0, 86168-2 ####[facility] LABORATORYCLIA [id number] [address] [place] Magnesium SerPl-mCncon 01-09 Magnesium [Mass/Vol] 2.3 mg/dL Normal 1.7-2.3 [facility] Comment on above: Order Comment: Speci men Type: BLOOD SPECIMENOrdering Facility: [facility] Address: [address] [place] [address] Performed By: #### 1 9123-9, 2276-4, 03639-3, 41261-6 ####[facility] LABORATORYCLIA [id number] [address] [place] THERAPY NTon 01-09-2025 THERAPY NT HNO ID: [id number] Author: ANAYA WHITE CCC-LUBE ATTENDANT Service: Speech/Swallow Author Type: Speech Language Pathologist Type: Therapy (PT/OT/Speech/Resp) Filed: 01/09/2025 13:09 Note Text: -- Summary: Clinical Swallowing Evaluation -- Speech Therapy Clinical Swallow Evaluation SERVICE DATE: 01/09/2025 SERVICE TIME: 1229 to 1256 ROOM: [place] [address] IMPRESSION Swallow Deficits Identified / Suspected: Oral dysphagia RECOMMENDATIONS Diet Recommendations Dental Soft, Thin Liquids IDDSI Level 0 Swallow Strategy Recommendations Feed / Eat at a slow rate, Check oral cavity for remaining food, Limit Distractions Nursing Recommendations Routine Rigid Oral Hygiene, Reinforce use of swallowing strategies Response to Therapy Interventions: Receptive family/caregivers, Good participation in activities Rehabilitation Precautions: Diabetic DISCHARGE RECOMMENDATIONS Recommended Discharge Disposition: No further skilled speech therapy services anticipated CURRENT HOSPITAL COURSE admitted to the hospital for fractured pelvis, recent fall Reason for Speech Therapy Consult: Concern for Dysphagia Relevant Past Medical History: CAD; ESRD; GARRET; CKD; DM II; GOUT HOME ENVIRONMENT / PRIOR FUNCTIONAL LEVEL Prior Functional Level: Required Assistance Patient Lives With: Spouse Assistance Required With: Transportation Assistance Available: PRN Prior Swallowing Function/Diet Textures: Regular Consistency, Thin Liquids IDDSI Level 0 (as reported by the patient / confirmed by the patients ) SUBJECTIVE Nursing clears patient for todays clinical swallowing assessment; pt's is present for todays clinical swallowing assessment; no overt reports of dysphagia prior to this hospitalization THERAPY DIAGNOSIS Dysphagia, oral phase TREATMENT INTERVENTIONS Clinical Swallow Evaluation (98436), Dysphagia Therapy (28765) Skilled Treatment Time (minutes): 27 TRAINING AND EDUCATION PROVIDED IN Dysphagia Management, Caregiver Education, Results and Recommendations of Session, Swallowing Strategies, Dietary Consistencies THERAPEUTIC SKILLS USED Education on role of discipline / importance of activity, Instruction in self-monitoring / self-assessment, Family / caregiver counseling / training, Teach-back for confirmation of education provided, Verbal cuing OBJECTIVE Current Status Oral Hygiene: Clear, moist oral cavity Dentition: Edentulous Current Feeding Method: Oral Current Diet Textures: Dental Soft, Thin Liquids IDDSI Level 0 Current Level Of Communication: Verbal Current Management Of Secretions: Able to self-manage Oral Motor Exam: Within Functional Limits SWALLOW ASSESSMENT Position Of Patient During Assessment: Semi-Upright (positioned accordingly by patient) Feeding Method: Patient Self-Fed Consistencies Presented: Thin Liquids IDDSI Level 0, Pureed Solids IDDSI Level 4, Soft and Bite-Sized Solids IDDSI Level 6 Thin Liquids Oral Phase: Bolus Holding Pureed Solids Oral Phase: Impaired A-P Transfer, Bolus Holding Soft and Bite-Sized Solids Oral Phase: Bolus Holding, Impaired A-P Transfer, Pocketing Right, Pocketing Left Response to Swallow Interventions: - pt and report a 'Regular' diet at the home setting however admit to avoiding various food items such as raw vegetables; -edentulous nature of the oral cavity may play a factor in food consistency choices; - pt admits to an increased amount of heartburn; -pt also admits to a decrease in overall appetite over the last few weeks; - pt denies any pain related to PO intake at this time; - pt appears to be easily distracted and vocalizes / participates in conversation while actively consuming PO trials; - pt states that he is aware of the PO remaining within the oral cavity and can manage it with extended time as well as use of liquid wash; -consulted with the patient and his regarding dietary choices, use of safe swallowing strategies, reduced appetite, need and benefit of PO intake for nutritional / hydration support; - and patient are in verbal agreement to remain on a dental soft diet with thin liquids at this time Compensatory Strategies Utilized During Assessment: Limit Distractions, Alternate bites and sips, Check oral cavity for remaining food Suspected Esophageal Deficits: Denies any history of esophageal dysphagia GOALS SWALLOWING: Patient / Caregiver will demonstrate knowledge of taught compensatory strategies and dietary consistency recommendations to optimize functional swallow function without overt clinical signs and symptoms of aspiration or dysphagia Speech Rehab Potential: Good Good Rehab Potential Due To: Good motivation, Good support system/ coping skills Patient /Caregiver Goals: Go Home, Eat/Drink Without R (more content not included)... [facility] THERAPY NT HNO ID: [id number] Author: CARLOS EDUARDO HELTON OT/Farhana Service: ? Author Type: Occupational Therapist Type: Therapy (PT/OT/Speech/Resp) Filed: 01/09/2025 10:05 Note Text: -- Summary: OT Evaluation -- Occupational Therapy Evaluation Summary SERVICE DATE: 01/09/2025 SERVICE TIME: 915 to 938 ROOM: [place] [address] OT 6 Clicks Score: 14 DISCHARGE RECOMMENDATIONS Subacute/SNF Recommended Discharge Disposition Due to: Functional deficits requiring ongoing therapy service prior to discharge home., ADL impairment, Anticipated community discharge, Cognitive deficits new/worsened, Functional status decline Anticipated Discharge Needs: Physical Assist at Home, Supervision at Home Physical Assist at Home for: Transfers, Finances, Ambulation, Cleaning, Laundry, Medication Management, Meals, Safety, Self Care, Shopping, Transportation, Wheelchair Mobility Supervision at Home due to: Decreased safety awareness, Impaired cognition Recommended Discharge Equipment: To Be Determined ASSESSMENT Response to Therapy Interventions: Cognitive Deficits, Good Participation in Activities, Low Activity Tolerance, Pain, Needs Frequent Redirection or Reinstruction Patient is AOx3-4, confused, unsure of baseline cognitive status however per chart pt appears to be more confused than baseline, appears to be a questionable historian, PALA, functioning below baseline with ADLs and mobility/tranfers, presents as a high fall risk in standing d/t impaired balance, pain, and decreased safety awareness/judgement, requires cueing/re-instruction to maintain attention to task PRECAUTIONS Bed/Chair Alarm, Fall Risk, Lines/Tubes/Drains, Weight Bearing Restrictions left limb alert Left Lower Extremity Weight Bearing Status: WBAT CURRENT HOSPITAL COURSE Right KEMAR and Right TKA who presents with fall and left hip pain. He uses a wheelchair at baseline and was transferring out of the shower when he had a fall to the ground. He had left hip pain that was severe and presented to the ED. He continues to have pain in the left hip. x: Fractured pelvis (HCC), Left hip pain. ortho consult 01/08. cleared for mobility with WBAT left LE Relevant Past Medical History: DM, ankylosing spondylitis, osteoarthritis, history of fracture multiple bones, cellulitis, gout, CAD,NSTEMI, CHF, CKD, CABG, ischemic cardiomyopathy, ESRD, right TKA, right ORIF/post fracture, right toe surgery HOME LIVING Patient Lives With: Spouse Assistance Available: 24-Hour Entry To Home: No Stairs Number Of Stairs To Bed/Bath: 0 Tub/Shower Type: WIS with small threshold, shower chair + grab bars Laundry: Spouse completes Equipment Owned: Wheelchair- Manual, Shower Chair, Grab Bars- Toilet, Grab Bars- Shower, Commode- Raised, Walker- Wheeled PRIOR FUNCTIONAL LEVEL History of Falls, Poor Historian, Required Assistance Assistance Required With: Cleaning, Laundry, Meals, Medication Management, Transportation, Wheelchair Mobility patient poor historian - independently mobilizes in w/c, and uses FWW at times. ind with ADL and pt reports spouse completes IADLs including managing pt's meds, fall leading to current admission possible falling out of shower. patient unable to describe fall history. sleeps in recliner. dialysis T, Th and Sat per RN Baseline Cognition: Other (see comment) (unsure, pt is currently a poor historian) SUBJECTIVE Pt sitting EOB with PT upon arrival, pleasant and agreeable to this session COGNITION Orientation Deficits: Confused (AOx3-4) Responsiveness: Alert, Awake Follows Commands: 2-step Commands, Cueing Needed, With Repetition Cueing to Follow Commands: Moderate Attention Deficits: Distractible, Divided Executive Function Deficits: Safety Awareness, Problem Solving, Insight to Deficits, Judgement, Sequencing THERAPY DIAGNOSIS Reduced mobility-other, Decreased activities of daily living (ADL), Muscle Weakness (generalized), Unsteadiness on feet, Signs and Symptoms Involving Cognitive Functions and Awareness TREATMENT INTERVENTIONS Evaluation, Therapeutic Activity (39761) Timed Code Treatment (minutes): 8 Skilled Treatment Time (minutes): 23 TRAINING AND EDUCATION PROVIDED Activity Adaptation/Compensatory Strategies, Adaptive Equipment/DME, Bed Mobility, Benefits of In-Hospital Mobility, Cognitive Skills, Command Following, Discharge Planning, Expected Functional Level, Functional Mobility Involving ADLs, Grooming Tasks, Insight into Deficits, Orientation, Memory/Attention, Pain Management, Positioning, Precautions/Restrictions, Role of Occupational Therapy, Safety/Judgment, Sitting Balance to Improve [place] with ADLs/Self-Care, Standing Balance to Improve [place] with ADLs/Self-Care, Transfer - Sit to Stand, Upper Extremity Dressing THE (more content not included)... Normal [facility] THERAPY NT HNO ID: [id number] Author: SONA HILL PT Service: Physical Therapy Author Type: Physical Therapist Type: Therapy (PT/OT/Speech/Resp) Filed: 01/09/2025 10:05 Note Text: -- Summary: PT evaluation -- Physical Therapy Evaluation Summary SERVICE DATE: 01/09/2025 SERVICE TIME: 843 to 926 ROOM: SH-1A-0978-1 PT 6 Clicks Score: 9 Overlapped session with OT for safety considerations DISCHARGE RECOMMENDATIONS Subacute/SNF Recommended Discharge Disposition Comments: Pt is currently performing functional mobility below PLOF and would benefit from continued skilled PT to reduce risk of falls and rehospitalization. Recommended Discharge Disposition Due to: Functional deficits requiring ongoing therapy service prior to discharge home., Anticipated community discharge, Balance deficits, Functional status decline, Requires multiple therapy disciplines Anticipated Discharge Needs: Physical Assist at Home, Supervision at Home Physical Assist at Home for: Transfers, Finances, Ambulation, Cleaning, Laundry, Medication Management, Meals, Safety, Self Care, Shopping, Transportation, Wheelchair Mobility Supervision at Home due to: Decreased safety awareness, Impaired cognition Recommended Discharge Equipment: No equipment needs anticipated ASSESSMENT Response to Therapy Interventions: Good Participation in Activities, Multiple Ongoing Medical Issues, Pain, Requires Additional Time to Complete Activities, Requires Encouragement to Complete Activities, Slow Progression with Functional Activities/Skills, Low Activity Tolerance patient presents after fall and left pelvis fracture with pain, decreasing ROM/strength and impaired functional mobility. patient also has history of right hip and knee surgery with limited ROM/strength right LE as well. patient confused with conversation throughout and PLOF questionable however anticipate acurate sleeps in recliner, heavy w/c use, limited FWW use. fall history with fall getting out of shower leading up to admission. heavy assist of 1-2 for bed mobility and transfers. heavy cues required. noted dizziness/weakness/pain limiting tolerance. mnitor tolerance/vitals for mobility progression. PRECAUTIONS Bed/Chair Alarm, Fall Risk, Lines/Tubes/Drains, Weight Bearing Restrictions left limb alert Left Lower Extremity Weight Bearing Status: WBAT CURRENT HOSPITAL COURSE Right KEMAR and Right TKA who presents with fall and left hip pain. He uses a wheelchair at baseline and was transferring out of the shower when he had a fall to the ground. He had left hip pain that was severe and presented to the ED. He continues to have pain in the left hip. x: Fractured pelvis (HCC), Left hip pain. ortho consult 01/08. cleared for mobility with WBAT left LE Relevant Past Medical History: DM, ankylosing spondylitis, osteoarthritis, history of fracture multiple bones, cellulitis, gout, CAD,NSTEMI, CHF, CKD, CABG, ischemic cardiomyopathy, ESRD, right TKA, right ORIF/post fracture, right toe surgery HOME LIVING Patient Lives With: Spouse Assistance Available: 24-Hour Entry To Home: No Stairs Number Of Stairs To Bed/Bath: 0 Tub/Shower Type: WIS with small threshold, shower chair + grab bars Laundry: Spouse completes Equipment Owned: Wheelchair- Manual, Shower Chair, Grab Bars- Toilet, Grab Bars- Shower, Commode- Raised, Walker- Wheeled PRIOR FUNCTIONAL LEVEL History of Falls, Poor Historian, Required Assistance Assistance Required With: Cleaning, Laundry, Meals, Medication Management, Transportation, Wheelchair Mobility patient poor historian - independently mobilizes in w/c, and uses FWW at times. ind with ADL and pt reports spouse completes IADLs including managing pt's meds, fall leading to current admission possible falling out of shower. patient unable to describe fall history. sleeps in recliner. dialysis T, Th and Sat per RN SUBJECTIVE patient agreeable to PT and cleared by RN. patient confused with conversation throughout THERAPY DIAGNOSIS Reduced mobility-other TREATMENT INTERVENTIONS Evaluation, Therapeutic Activity (09179) Timed Code Treatment (minutes): 17 Skilled Treatment Time (minutes): 32 $ Evaluation-Low (35128) Billed Units: 1 unit Therapeutic Activity (94915) Treatment Minutes: 17 $ Therapeutic Activity (22754) Billed Units: 1 unit Range of Motion: WFL Except, ROM Limitation Comments ROM Limitation Comments: left LE less than 10% to left hip and knee, right knee flexion 15 - 90 deg, ankle DF to neutral. all ROM P/AAROM Strength: WFL Except, Strength Limitation Comments Strength Limitation Comments: patient not following commands for ROM/MMT, grossly at least 3-/5 per clinical judgement based on weight bearing. TRAINING AND EDUCATION PROVIDED Anatomy and Impact o (more content not included)... Normal [facility] Urinalysis complete panel (U )on 01-09-2025 Bacteria LM.HPF (Urine sed) [#/Area] Moderate Abnormal None Seen [facility] Comment on above: Order Comment: Speci men Type: URINE SPECIMENOrdering Facility: [facility] Address: [address] [place] [address] Performed By: #### 2 4356-8 ####ADAM LABORATORYCLIA [id number] [place] [address] [place] [facility] Bilirubin Ql (U) Normal [facility] Comment on above: Order Comment: Speci men Type: URINE SPECIMENOrdering Facility: [facility] Address: [address] [place] [address] Result Comment: [place] r interference, unable to perform assay. Performed By: #### 2 4356-8 ####ADAM LABORATORYCLIA [id number] [address] [place] Clarity (Unsp spec) Turbid Abnormal Clear [facility] Comment on above: Order Comment: Speci men Type: URINE SPECIMENOrdering Facility: [facility] Address: [address] [place] [address] Performed By: #### 2 4356-8 ####ADAM LABORATORYCLIA [id number] [place], [place] [address] [place] [address] [place] Color (U) Brown Abnormal Yellow [facility] Comment on above: Order Comment: Speci men Type: URINE SPECIMENOrdering Facility: [facility] Address: [address] [place] [address] Performed By: #### 2 4356-8 ####ADAM LABORATORYCLIA [id number] [address] Glucose Test strip (U) [Mass/Vol] Normal [facility] Comment on above: Order Comment: Speci men Type: URINE SPECIMENOrdering Facility: [facility] Address: [address] [place] [address] Result Comment: [place] r interference, unable to perform assay. Performed By: #### 2 4356-8 ####ADAM LABORATORYCLIA [id number] [address] Hemoglobin Ql (U) Normal [facility] Comment on above: Order Comment: Speci men Type: URINE SPECIMENOrdering Facility: [facility] Address: [address] [place] [address] Result Comment: [place] r interference, unable to perform assay. Performed By: #### 2 4356-8 ####ADAM LABORATORYCLIA [id number] [address] Ketones Ql (U) Normal [facility] Comment on above: Order Comment: Speci men Type: URINE SPECIMENOrdering Facility: [facility] Address: [address] [place] [address] Result Comment: [place] r interference, unable to perform assay. Performed By: #### 2 4356-8 ####ADAM LABORATORYCLIA [id number] [address] Leukocyte esterase Test strip Ql (U) Normal [facility] Comment on above: Order Comment: Speci men Type: URINE SPECIMENOrdering Facility: [facility] Address: [address] [place] [address] Result Comment: [place] r interference, unable to perform assay. Performed By: #### 2 4356-8 ####ADAM LABORATORYCLIA [id number] [address] [place] Nitrite Ql (U) Normal [facility] Comment on above: Order Comment: Speci men Type: URINE SPECIMENOrdering Facility: [facility] Address: [address] [place] [address] Result Comment: [place] r interference, unable to perform assay. Performed By: #### 2 4356-8 ####ADAM LABORATORYCLIA [id number] [address] pH (U) Normal [facility] Comment on above: Order Comment: Speci men Type: URINE SPECIMENOrdering Facility: [facility] Address: [address] [place] [address] Result Comment: [place] r interference, unable to perform assay. Performed By: #### 2 4356-8 ####ADAM LABORATORYCLIA [id number] [address] Protein (U) [Mass/Vol] Normal [facility] Comment on above: Order Comment: Speci men Type: URINE SPECIMENOrdering Facility: [facility] Address: [address] [place] [address] Result Comment: [place] r interference, unable to perform assay. Performed By: #### 2 4356-8 ####ADAM LABORATORYCLIA [id number] [address] RBC LM.HPF (Urine sed) [#/Area] /[HPF] Abnormal 0-3 /HPF [facility] Comment on above: Order Comment: Speci men Type: URINE SPECIMENOrdering Facility: [facility] Address: [address] [place] [address] Performed By: #### 2 4356-8 ####ADAM LABORATORYCLIA [id number] [place] [address] [place] Specific gravity (U) [Rel density] Normal [facility] Comment on above: Order Comment: Speci men Type: URINE SPECIMENOrdering Facility: [facility] Address: [address] [place] [address] Result Comment: [place] r interference, unable to perform assay. Performed By: #### 2 4356-8 ####ADAM LABORATORYCLIA [id number] [address] [place] Urobilinogen Ql (U) Normal [facility] Comment on above: Order Comment: Speci men Type: URINE SPECIMENOrdering Facility: [facility] Address: [address] [place] [address] Result Comment: [place] r interference, unable to perform assay. Performed By: #### 2 4356-8 ####[facility] LABORATORYCLIA [id number] [address] [place] WBC LM.HPF (Urine sed) [#/Area] 0-5 /HPF Normal 0-5 /HPF [facility] Comment on above: Order Comment: Speci men Type: URINE SPECIMENOrdering Facility: [facility] Address: [address] [place] [address] Performed By: #### 2 4356-8 ####[facility] LABORATORYCLIA [id number] [address] ALLIED HEALTHon 01-08-2025 ALLIED HEALTH HNO ID: [id number] Author: VANDANA SOTO RT(R) Service: Radiology Author Type: Technologist Type: Allied Health Filed: 01/08/2025 12:17 Note Text: Radiology Service Progress Note PATIENT NAME: Mauri Quinones DATE OF SERVICE: January 08, 2025 TIME: 12:17 PM PATIENT IDENTITY VERIFICATION COMPLETED USING TWO (2) IDENTIFIERS: Name and Date of confirmed by patient verbally and Name and Date of confirmed by identification band. FALL SCREENING: Has the patient had 2 falls in the last year or 1 fall with injury or currently using an Ambulatory Assistive Device (Walker, Cane, Wheelchair, Crutches, etc.)? Inpatient: Screened on floor PATIENT GENDER DATA: Assigned female at . status: : No status: NO. PATIENT RELEVANT IMPLANT DATA REVIEWED: Not Applicable PATIENT PRESENTS WITH AN IMPLANTABLE OR ATTACHED EDGE BLACKER: No RADIOLOGY DEPARTMENT: General X-ray: Exam(s) Completed: Chest X-Ray PERIPHERAL IV DATA: Not applicable SIGNED BY: RT Rosenda(R) January 08, 2025 12:[address] [facility] HEALTH HNO ID: [id number] Author: MONICA BENITEZ CT Service: Radiology Author Type: Technologist Type: Allied Health Filed: 01/08/2025 11:37 Note Text: Radiology Service Progress Note PATIENT NAME: Mauri Quinones DATE OF SERVICE: January 08, 2025 TIME: 11:37 AM PATIENT IDENTITY VERIFICATION COMPLETED USING TWO (2) IDENTIFIERS: Name and Date of confirmed by patient verbally and Name and Date of confirmed by identification band. FALL SCREENING: Has the patient had 2 falls in the last year or 1 fall with injury or currently using an Ambulatory Assistive Device (Walker, Cane, Wheelchair, Crutches, etc.)? Inpatient: Screened on floor PATIENT GENDER DATA: Assigned male at PATIENT RELEVANT IMPLANT DATA REVIEWED: Not Applicable PATIENT PRESENTS WITH AN IMPLANTABLE OR ATTACHED EDGE BLACKER: No RADIOLOGY DEPARTMENT: CT; Exam(s) Completed: Brain PERIPHERAL IV DATA: Not applicable SIGNED BY: WILLIAMS Mojica January 08, 2025 11:37 AM [facility] ARTERIAL BLOOD GASESon 01-08 Base excess Calc (Bld) [Moles/Vol] 3 mmol/L High 0-2 [facility] Comment on above: Order Comment: Kelsi huff Type: ARTERIAL BLOOD SPECIMENOrdering Facility: [facility] Address: [address] [place] [address] Performed By: #### A LLBG ####[facility] RESPIRATORYCLIA [id number] [facility]IRAT[facility] [id number] [place] [address] Carboxyhemoglobin (BldA) [Mass fraction] 2.1 % High 0.0-2.0 [facility] Comment on above: Order Comment: Kelsi huff Type: ARTERIAL BLOOD SPECIMENOrdering Facility: [facility] Address: [address] [place] [address] Result Comment: Carb oxyhemoglobin Reference Range for Smokers: 2.0-8.0% Performed By: #### A LLBG ####[facility] RESPIRATORYIA [id number] [facility]OS[facility]IRAT[facility] [id number] [address] [address] CO2 (Bld) [Partial pressure] 60 mm Hg High 36-46 [facility] Comment on above: Order Comment: Speci men Type: ARTERIAL BLOOD SPECIMENOrdering Facility: [facility] Address: [address] [place] [id number] Performed By: #### A LLBG ####[facility]ORY[facility] [id number] [facility] RES[facility] [id number] [address] [address] HCO3 (Bld) [Moles/Vol] 31 mmol/L High 22-26 [facility] Comment on above: Order Comment: Speci men Type: ARTERIAL BLOOD SPECIMENOrdering Facility: [facility] Address: [address] [place] [address] Performed By: #### A LLBG ####[facility]ATORYNOR[facility]WEST[facility] [id number] [facility] RES[facility]IRAT[facility] [id number] [address] [address] Hemoglobin (Bld) [Mass/Vol] 12.3 g/dL Low 13.0-17.0 [facility] Comment on above: Order Comment: Speci men Type: ARTERIAL BLOOD SPECIMENOrdering Facility: [facility] Address: [address] [place] [id number] Performed By: #### A LLBG ####[facility]ATORYNOR[facility] [id number] [facility] RES[facility]IRAT[facility] [id number] [address] [address] LITERS 2 Liters/min Normal [facility] Comment on above: Order Comment: Speci men Type: ARTERIAL BLOOD SPECIMENOrdering Facility: [facility] Address: [address] [place] [address] Performed By: #### A LLBG ####[facility] [id number] [facility]OS[facility] RESPIRATORY [id number] [address] Oxygen (Bld) [Partial pressure] 66 mm Hg Low 85-95 [facility] Comment on above: Order Comment: Speci men Type: ARTERIAL BLOOD SPECIMENOrdering Facility: [facility] Address: [address] [place] [address] Performed By: #### A LLBG ####[facility]ORYNOR[facility] [id number] [facility]OS[facility] RESPIRAT[facility] [id number] [address] [address] Oxyhemoglobin (BldA) [Mass fraction] 90 % Low 95-98 [facility] Comment on above: Order Comment: Speci men Type: ARTERIAL BLOOD SPECIMENOrdering Facility: [facility] Address: [address] [place] [address] Performed By: #### A LLBG ####[facility]ATORYNOR[facility]WE[facility] [id number] [facility] RESPIRAT[facility] [id number] [address] [address] Potassium [Moles/Vol] 5.4 mmol/L High 3.5-5.0 [facility] Comment on above: Order Comment: Speci men Type: ARTERIAL BLOOD SPECIMENOrdering Facility: [facility] Address: [address] [place] [address] Performed By: #### A LLBG ####[facility]ORYNOR[facility] [id number] [facility] RES[facility]IRAT[facility] [id number] [address] [address] Base excess Calc (Bld) [Moles/Vol] 2 mmol/L Normal 0-2 [facility] Comment on above: Order Comment: Speci men Type: ARTERIAL BLOOD SPECIMENOrdering Facility: [facility] Address: [address] [place] [address] Performed By: #### A LLBG ####[facility]ORY[facility] [id number] [facility] RESPIRATORY [id number] [address] Carboxyhemoglobin (BldA) [Mass fraction] 2.3 % High 0.0-2.0 [facility] Comment on above: Order Comment: Speci men Type: ARTERIAL BLOOD SPECIMENOrdering Facility: [facility] Address: [address] [place] [address] Result Comment: Carb oxyhemoglobin Reference Range for Smokers: 2.0-8.0% Performed By: #### A LLBG ####[facility] RESPIRATORYIA [id number] [facility]OS[facility] RESPIRATORY [id number] [address] [address] CO2 (Bld) [Partial pressure] 59 mm Hg High 36-46 [facility] Comment on above: Order Comment: Speci men Type: ARTERIAL BLOOD SPECIMENOrdering Facility: [facility] Address: [address] [place] [address] Performed By: #### A LLBG ####[facility]ORY[facility] [id number] [facility] RESPIRAT[facility] [id number] [address] [address] CO2 adjusted to patient's actual temperature (Bld) [Partial pressure] Normal [facility] Comment on above: Order Comment: Speci men Type: ARTERIAL BLOOD SPECIMENOrdering Facility: [facility] Address: [address] [place] [address] Performed By: #### A LLBG ####[facility] [id number] [facility]OS[facility] RESPIRATORY [id number] [address] [address] HCO3 (Bld) [Moles/Vol] 30 mmol/L High 22-26 [facility] Comment on above: Order Comment: Speci men Type: ARTERIAL BLOOD SPECIMENOrdering Facility: [facility] Address: [address] [place] [address] Performed By: #### A LLBG ####[facility] [id number] [facility]OS[facility] RESPIRATORY [id number] [address] [address] Hemoglobin (Bld) [Mass/Vol] 12.5 g/dL Low 13.0-17.0 [facility] Comment on above: Order Comment: Speci men Type: ARTERIAL BLOOD SPECIMENOrdering Facility: [facility] Address: [address] [place] [address] Performed By: #### A LLBG ####[facility] [id number] [facility] RESPIRAT[facility] [id number] [address] [address] Lactate [Moles/Vol] 0.9 mmol/L Normal 0.5-2.2 [facility] Comment on above: Order Comment: Speci men Type: ARTERIAL BLOOD SPECIMENOrdering Facility: [facility] Address: [address] [place] [address] Performed By: #### A LLBG ####[facility]ORYNOR[facility] [id number] [facility]OS[facility] RESPIRATORY [id number] [address] [address] LITERS 1 Liters/min Normal [facility] Comment on above: Order Comment: Speci men Type: ARTERIAL BLOOD SPECIMENOrdering Facility: [facility] Address: [address] [place] [address] Performed By: #### A LLBG ####[facility]ORYNOR[facility] [id number] [facility]OS[facility] RESPIRATORY [id number] [address] [address] Methemoglobin (Bld) [Mass fraction] % Normal 0.0-1.5 [facility] Comment on above: Order Comment: Speci men Type: ARTERIAL BLOOD SPECIMENOrdering Facility: [facility] Address: [address] [place] [address] Performed By: #### A LLBG ####[facility]ORYNOR[facility] [id number] [facility]OS[facility] RESPIRAT[facility] [id number] [address] [address] O2 THERAPY NC = Nasal Cannula Normal [facility] Comment on above: Order Comment: Speci men Type: ARTERIAL BLOOD SPECIMENOrdering Facility: [facility] Address: [address] [place] [address] Performed By: #### A LLBG ####[facility]ORYNOR[facility] [id number] HOSPITAL RESPIRATORY [id number] [address] [address] Oxygen (Bld) [Partial pressure] 82 mm Hg Low 85-95 [facility] Comment on above: Order Comment: Speci men Type: ARTERIAL BLOOD SPECIMENOrdering Facility: [facility] Address: [address] [place] [address] Performed By: #### A LLBG ####[facility]ORYNOR[facility] [id number] [facility]OS[facility] RESPIRATORY [id number] [address] [address] Oxygen adjusted to patient's actual temperature (Bld) [Partial pressure] Normal [facility] Comment on above: Order Comment: Speci men Type: ARTERIAL BLOOD SPECIMENOrdering Facility: [facility] Address: [address] [place] [address] Performed By: #### A LLBG ####[facility]ORY[facility] [id number] [facility]OS[facility] RESPIRATORY [id number] [address] [address] Oxyhemoglobin (BldA) [Mass fraction] 94 % Low 95-98 [facility] Comment on above: Order Comment: Speci men Type: ARTERIAL BLOOD SPECIMENOrdering Facility: [facility] Address: [address] [place] [address] Performed By: #### A LLBG ####[facility] [id number] [facility] RESPIRATORY [id number] [place] [address] pH (Bld) 7.31 [pH] Low 7.35-7.45 [facility] Comment on above: Order Comment: Speci men Type: ARTERIAL BLOOD SPECIMENOrdering Facility: [facility] Address: [address] [place] [address] Performed By: #### A LLBG ####[place] [id number] [place] [address] RESPIRATORY [id number] [address] [address] pH adjusted to patient's actual temperature (Bld) Normal [facility] Comment on above: Order Comment: Speci men Type: ARTERIAL BLOOD SPECIMENOrdering Facility: [facility] Address: [address] [place] [address] Performed By: #### A LLBG ####[facility]ORYNOR[facility] [id number] [facility]OS[facility] RESPIRATORY [id number] [address] [address] Potassium [Moles/Vol] 5.3 mmol/L High 3.5-5.0 [facility] Comment on above: Order Comment: Speci men Type: ARTERIAL BLOOD SPECIMENOrdering Facility: [facility] Address: [address] [place] [address] Performed By: #### A LLBG ####[facility] RESPIRATORY[id number] [facility]OS[facility] RESPIRATORY [id number] [address] [address] Ammonia Plas-sCncon 01-09-20 25 Ammonia (P) [Moles/Vol] 13 umol/L Low 16-60 [facility] Comment on above: Order Comment: Speci men Type: BLOOD SPECIMENOrdering Facility: [facility] Address: [address] [place] [address] Performed By: #### 1 6362-6 ####ADAM LABORATORYCLIA [id number] [place] [address] [place] Basic metabolic 2000 panelon 01-08-2025 Anion gap [Moles/Vol] 14 mmol/L Normal 8-15 [facility] Comment on above: Order Comment: Speci men Type: BLOOD SPECIMENOrdering Facility: [facility] Address: [address] [place] [address] Performed By: #### 2 4321-2 ####AD[facility] LABORATORYCLIA [id number] [place] [address] [place] Calcium [Mass/Vol] 9.9 mg/dL Normal 8.5-10.2 [facility] Comment on above: Order Comment: Speci men Type: BLOOD SPECIMENOrdering Facility: [facility] Address: [address] [place] [address] Performed By: #### 2 4321-2 ####AD[facility] LABORATORYCLIA [id number] [place] [address] [place] Chloride [Moles/Vol] 91 mmol/L Low 98-107 [facility] Comment on above: Order Comment: Speci men Type: BLOOD SPECIMENOrdering Facility: [facility] Address: [address] [place] [address] Performed By: #### 2 4321-2 ####[facility] LABORATORYCLIA [id number] [place] [address] [place] CO2 [Moles/Vol] 29 mmol/L Normal 22-30 [facility] Comment on above: Order Comment: Speci men Type: BLOOD SPECIMENOrdering Facility: [facility] Address: [address] [place] [address] Performed By: #### 2 4321-2 ####[facility] LABORATORYCLIA [id number] [place] [id number] [place] Creatinine [Mass/Vol] 4.87 mg/dL High 0.73-1.22 [facility] Comment on above: Order Comment: Kelsi huff Type: BLOOD SPECIMENOrdering Facility: [facility] Address: [address] [place] [address] Performed By: #### 2 4321-2 ####[facility] LABORATORYCLIA [id number] [place] [id number] [facility] Creatinine and Glomerular filtration rate.predicted panel (S/P/Bld) 12 mL/min/1.73m??? Low >=60 [facility] Comment on above: Order Comment: Kelsi huff Type: BLOOD SPECIMENOrdering Facility: [facility] Address: [address] [place] [address] Result Comment: Caryl mated Glomerular Filtration Rate (eGFR) is calculated using the 2020 CKD-EPI creatinine equation. This equation utilizes serum creatinine, sex, and age as parameters. The creatinine assay has traceable calibration to isotope dilution-mass spectrometry. Refer to KDIGO guidelines for clinical interpretation. In patients with unstable renal function, e.g. those with acute kidney injury, the eGFR may not accurately reflect actual GFR. Performed By: #### 2 4321-2 ####ADAM LABORATORYCLIA [id number] [place] [id number] [place] Glucose [Mass/Vol] 100 mg/dL High 74-99 [facility] Comment on above: Order Comment: Kelsi huff Type: BLOOD SPECIMENOrdering Facility: [facility] Address: [address] [place] [address] Result Comment: The [place] [employer] (ADA) provides guidance for cutoff values for fasting glucose and random glucose. The ADA defines fasting as no caloric intake for at least 8 hours. Fasting plasma glucose results between 100 to 125 [...] Standards of Medical Care in Diabetes 2016, [place] [employer]. Diabetes Care. 2016.39(Suppl 1). Performed By: #### 2 4321-2 ####ADAM LABORATORYCLIA [id number] [address] Potassium [Moles/Vol] 5.3 mmol/L High 3.7-5.1 [facility] Comment on above: Order Comment: Speci men Type: BLOOD SPECIMENOrdering Facility: [facility] Address: [address] [place] [address] Performed By: #### 2 4321-2 ####ADAM LABORATORYCLIA [id number] [address] Sodium [Moles/Vol] 134 mmol/L Low 136-144 [facility] Comment on above: Order Comment: Samanthai daria Type: BLOOD SPECIMENOrdering Facility: [facility] Address: [address] [place] [address] Performed By: #### 2 4321-2 ####ADAM LABORATORYCLIA [id number] [address] STATES [facility] Urea nitrogen [Mass/Vol] 54 mg/dL High 9-24 [facility] Comment on above: Order Comment: Kelsi huff Type: BLOOD SPECIMENOrdering Facility: [facility] Address: [address] [place] [address] Performed By: #### 2 4321-2 ####ADAM LABORATORYCLIA [id number] [address] CBC panel Auto (Bld)on 01-08 Erythrocyte distribution width (RBC) [Ratio] 16.0 % High 11.5-15.0 [facility] Comment on above: Order Comment: Samanthai men Type: BLOOD SPECIMENOrdering Facility: [facility] Address: [address] [place] [address] Performed By: #### 5 8410-2 ####ADAM LABORATORYCLIA [id number] [address] Hematocrit (Bld) [Volume fraction] 36.0 % Low 39.0-51.0 [facility] Comment on above: Order Comment: Speci men Type: BLOOD SPECIMENOrdering Facility: [facility] Address: [address] [place] [address] Performed By: #### 5 8410-2 ####ADAM LABORATORYCLIA [id number] [address] Hemoglobin (Bld) [Mass/Vol] 11.4 g/dL Low 13.0-17.0 [facility] Comment on above: Order Comment: Speci men Type: BLOOD SPECIMENOrdering Facility: [facility] Address: [address] [place] [address] Performed By: #### 5 8410-2 ####ADAM LABORATORYCLIA [id number] [address] MCH (RBC) [Entitic mass] 31.7 pg Normal 26.0-34.0 [facility] Comment on above: Order Comment: Speci men Type: BLOOD SPECIMENOrdering Facility: [facility] Address: [address] [place] [address] Performed By: #### 5 8410-2 ####ADAM LABORATORYCLIA [id number] [address] MCHC (RBC) [Mass/Vol] 31.7 g/dL Normal 30.5-36.0 [facility] Comment on above: Order Comment: Speci men Type: BLOOD SPECIMENOrdering Facility: [facility] Address: [address] [place] [address] Performed By: #### 5 8410-2 ####ADAM LABORATORYCLIA [id number] [address] MCV (RBC) [Entitic vol] 100.0 fL Normal 80.0-100.0 [facility] Comment on above: Order Comment: Speci men Type: BLOOD SPECIMENOrdering Facility: [facility] Address: [address] [place] [address] Performed By: #### 5 8410-2 ####ADAM LABORATORYCLIA [id number] [address] Nucleated RBC (Bld) [#/Vol] 10*3/uL Normal <0.01 [facility] Comment on above: Order Comment: Speci men Type: BLOOD SPECIMENOrdering Facility: [facility] Address: [address] [place] [address] Performed By: #### 5 8410-2 ####ADAM LABORATORYCLIA [id number] [place] [address] [place] Platelet mean volume (Bld) [Entitic vol] 10.1 fL Normal 9.0-12.7 [facility] Comment on above: Order Comment: Speci men Type: BLOOD SPECIMENOrdering Facility: [facility] Address: [address] [place] [address] Performed By: #### 5 8410-2 ####ADAM LABORATORYCLIA [id number] [place] [address] [place] Platelets (Bld) [#/Vol] 122 10*3/uL Low 150-400 [facility] Comment on above: Order Comment: Speci men Type: BLOOD SPECIMENOrdering Facility: [facility] Address: [address] [place] [address] Result Comment: No c lot detected. Performed By: #### 5 8410-2 ####ADAM LABORATORYCLIA [id number] [place] [address] [place] RBC (Bld) [#/Vol] 3.60 10*6/uL Low 4.20-6.00 [facility] Comment on above: Order Comment: Speci men Type: BLOOD SPECIMENOrdering Facility: [facility] Address: [address] [place] [address] Performed By: #### 5 8410-2 ####ADAM LABORATORYCLIA [id number] [place] [address] [place] WBC (Bld) [#/Vol] 6.19 10*3/uL Normal 3.70-11.00 [facility] Comment on above: Order Comment: Speci men Type: BLOOD SPECIMENOrdering Facility: [facility] Address: [address] [place] [address] Performed By: #### 5 8410-2 ####ADAM LABORATORYIA [id number] [place] [address] [place] CONSULTon 01-08-2025 CONSULT HNO ID: [id number] Author: SCOTT SAUCEDO MD Service: Orthopaedic Surgery Author Type: Physician Type: Consults Filed: 01/08/2025 07:31 Note Text: ORTHO ATTENDING NOTE 69 yo male fell at home in bathroom injuring left hip. He denies other new injuries or pains. He reports his left hip pain is better today compared to yesterday He has had B knee pain and R hip pain in past and recently seen Dr De La Rosa for these. He says he requested to be sent her to be treated with Dr De La Rosa. PMHx Acute on chronic diastolic congestive heart failure ([facility]) 07/14/2018 GARRET (acute kidney injury) 03/24/2019 GARRET (acute kidney injury) 03/24/2019 Ankylosing spondylitis ([facility]) CAD (coronary artery disease) Cellulitis Chronic combined systolic and diastolic CHF (congestive heart failure) ([facility]) 03/24/2019 CKD (chronic kidney disease) stage 3, GFR 30-59 ml/min ([facility]) 03/24/2019 Constipation Diabetes ([facility]) Gout High phosphate levels 03/24/2019 History of coronary artery bypass graft 04/18/2019 04/10/17 CARTY to LAD, SVG to PDA, SVG to OM Hx of fracture multiple bones Hyperkalemia 03/24/2019 Hypoalbuminemia 03/24/2019 Hyponatremia 03/24/2019 Hypoxia 03/24/2019 Ischemic cardiomyopathy 04/18/2019 Echocardiogram 01/10/19 Dr. Nunez: Dilated left ventricle, left ventricular ejection fraction 40%, mild to moderate systolic dysfunction, moderate concentric LVH, dilated left and right atria. Mild mitral valve thickening with papillary muscle dysfunction, mild mitral valve insufficiency, tricuspid valve insufficiency, aortic valve insufficiency, pulmonic valve insufficiency. Aortic valve calcifi NSTEMI (non-ST elevated myocardial infarction) ([facility]) 03/12/2017 [facility] admit Osteoarthritis Transition of care performed with sharing of clinical summary 04/08/2019 Admit [facility] 03/21/19-03/22/19 Discharge diagnoses chronic kidney disease with worsening creatinine, acute kidney injury Hypokalemia Toxic encephalopathy secondary to Flexeril overusage Type 2 diabetes Ischemic cardiomyopathy Coronary artery disease Ligamental cervical neck strain and acute Pulmonary hypertension Hypertension Pyuria Preadmit: to [facility] ED with slurred speech, lethargy. PSHX ARTHRP ACETBLR/PROX FEM PROSTC AGRFT/ALGRFT Right 2019 Dr Peguero CORONARY ARTERY BYPASS GRAFT 04/12/2017 x 3 FEMUR RIGHT OP SURGERY Right Repair of fracture with hardward HIP SURGERY HX Right pin KNEE ARTHROSCOPY Left x2 KNEE SURGERY HX Right TKR, right, arthoscopy x3 PAST SURGICAL HISTORY OF 09/07/2017 08/15/17 fx radius in 2 places; plate and screws.Plate and screws 09/07/17 [facility] TOE SURGERY HX Right ALLERGIES - lyrica HOME MEDS Vit B, eliquis, insulin, cialis, tylenol, ammonium lactate, atorvastatin, bumetanide, hydroxazine, latanoprost, loratidine, melatonin, midodrine, pantoprazole, sevelamer, trazodone SOCIAL HX Lives at home with Walks some with walker but often uses WC in the last 11 months since a fall Denies alcohol, tobacco, illicits PE NAD Cooperative Difficult to understand with garbled speech at times BUE Atraumatic and moving independently without limitations RLE DF and PF intact Reports LT intact Nonpalp pulses Well healed incision R knee, Mild effusion, Minimal TTP AAROM -20-80 with some knee and hip pain Mild pain in hip with log roll LLE DF and PF intact LT intact Nonpalp pulses AAROM knee 0-95 deg with mild pain in knee, increased in hip No ttp knee leg ankle foot Xrays R KEMAR intact, calcifications in veins CT scan - intact R KEMAR; left nondisplaced sacral and pubic ramis fxs A/P L sacral and puboic ramis fxs - Ok for WBAT - PT - may need rehab on DC - pain control - FU as OP c me or Dr De La Rosa in 2-3 weeks Moderate pain in hip with log roll Normal [facility] CONSULT PROGon 01-08-2025 CONSULT PROG HNO ID: [id number] Author: JOSAFAT LOREDO MD Service: Nephrology Author Type: Physician Type: Consult Progress Note Filed: 01/08/2025 08:08 Note Text: NEPHROLOGY CONSULT PROGRESS NOTE Subjective INTERVAL HISTORY: The patient was seen and examined . No acute event overnight. PERTINENT ROS: GENERAL: No fever/chills. RESPIRATORY: Negative for cough, wheezing or shortness of breath. CARDIOVASCULAR: Negative for chest pain or palpitations. GI: Negative for nausea, vomiting, Diarrhea, abdominal pain. : Negative for dysuria and hematuria MEDICATIONS: Current Facility-Administered Medications Medication Dose Route Frequency atorvastatin 40 mg tab(s) (LIPITOR) 40 mg ORAL AT BEDTIME bumetanide 2 mg tab(s) (BUMEX) 2 mg ORAL DAILY midodrine 5 mg tab(s) (PROAMITINE) 5 mg ORAL TID pantoprazole DR 40 mg tab(s) (PROTONIX) 40 mg ORAL DAILY (6 AM) traZODone 100 mg tab(s) (DESYREL) 100 mg ORAL AT BEDTIME hydrOXYzine HCl 25 mg tab(s) (ATARAX) 25 mg ORAL q 6 H PRN latanoprost 0.005 % 1 drop (XALATAN) 1 drop BOTH EYES AT BEDTIME melatonin 9 mg tab(s) 9 mg ORAL AT BEDTIME PRN dextrose 40 % 15 g 15 g ORAL PRN Or glucagon 1 mg injection 1 mg INTRAMUSCULAR PRN Or dextrose 10% iv bolus 12.5 g INTRAVENOUS PRN NaCl 0.9% iv flush bag 20 mL INTRAVENOUS PRN insulin glargine 10 Units pen (long acting) 10 Units SUBCUTANEOUS AT BEDTIME insulin lispro injection (rapid acting) (ADMElog) SUBCUTANEOUS w MEALS acetaminophen 1,000 mg tab(s) (TYLENOL) 1,000 mg ORAL q 8 H morphine 2 mg injection 2 mg INTRAVENOUS q 3 H PRN ondansetron (PF) 4 mg injection (ZOFRAN) 4 mg INTRAVENOUS q 6 H PRN Objective PHYSICAL EXAM: BP 107/60 Pulse 68 Temp 36.3 ?C (97.3 ?F) (Oral) Resp 12 SpO2 96% Intake/Output Summary (Last 24 hours) at 01/08/2025 0807 Last data filed at 01/07/2025 1142 Gross per 24 hour Intake 100 ml Output -- Net 100 ml GENERAL: NAD HEENT : NCAT, MMM and pink EYES: Conjunctiva -Pallor, Non icterus sclera. NECK: supple, No JVD, LUNGS: CTA without rales or wheeze, diminished breath sounds, CV: no murmurs, clicks, or gallops. ABDOMEN: soft, NT, BS normal EDEMA : no Lower extremity/ no Dependent edema DATA: Diagnostic tests reviewed for today's visit: Most recent labs and imaging results. Recent Labs 01/08/25 0444 WBC 6.19 HB 11.4* HCT 36.0* PLT 122* NA 134* K 5.3* CHLOR 91* CO2 29 BUN 54* CREAT 4.87* GLUC 100* CA 9.9 Assessment/Plan 1. ESRD on hemodialysis 2. Anemia of chronic kidney disease 3. Secondary hyperparathyroidism 4. Hypertension but a history of intradialytic hypotension and on midodrine 5. Left hip pain and CT scan of pelcis : minimally displaced fracture of left sacrum with questionably minimally displaced fractures of the left superior pelvic ramus. 6. Chronic combined systolic and diastolic failure 7. Coronary disease status post CABG 7. Atrial fibrillation on Eliquis 8. Type 2 diabetes Plan of management Hemodialysis today. See orders for details Hemodialysis for 3.5 hours, 2K bath, ultrafiltration 1 to 2 L Hemoglobin 11.4 no need for BETTIE therapy Iron study with transferrin saturation 6.1 Continue BETTIE and vitamin therapy with dialysis same as outpatient hemodialysis center. Continue on Bumex 2 mg once daily Continue on Renvela 1 tablet 3 times with each meal Continue midodrine 5 mg 3 times a day [facility] CT BRAIN WO IVCONon 01-09-20 CT BRAIN WO IVCON * * *Final Report* * * DATE OF EXAM: Jan 08 2025 11:38AM [facility] [place] - CT BRAIN WO IVCON / PROCEDURE REASON: Mental status change, unknown cause * * * * Physician Interpretation * * * * EXAMINATION: CT BRAIN WO IVCON CLINICAL HISTORY: Mental status change, unknown cause TECHNIQUE: Serial axial images without IV contrast were obtained from the vertex to the foramen magnum. MQ: CTBWO_3 CT Radiation dose: Integrated Dose-Length Product (DLP) for this visit = 823 mGy*cm CT Dose Reduction Employed: No dose reduction techniques were required COMPARISON: 01/06/2025 RESULT: Post-operative change: None. Acute change: No evidence of an acute infarct or other acute parenchymal process. Hemorrhage: No evidence of acute intracranial hemorrhage. ECASS hemorrhagic transformation score: Not Applicable Mass Lesion / Mass Effect: There is no evidence of an intracranial mass or extraaxial fluid collection. No significant mass effect. Chronic change: Scattered patchy foci of low attenuation are present within the supratentorial white matter, a nonspecific finding that most commonly represents mild small vessel disease. Parenchyma: There is mild generalized volume loss. The brain parenchyma is otherwise within normal limits for age. Ventricles: The ventricles are within normal limits of size and configuration for age. Paranasal sinuses and skull base: Complete opacification of the left maxillary sinus and to centimeter right maxillary sinus retention cyst/polyp. The skull base and imaged soft tissues are unremarkable. Localizer images: Unremarkable. IMPRESSION: NO EVIDENCE OF AN ACUTE INTRACRANIAL PROCESS Maxillary sinus disease. Crts: PSCB Transcribe Date/Time: Jan 08 2025 11:42A Dictated by : SONG DE LA GARZA MD This examination was interpreted and the report reviewed and electronically signed by: SONG DE LA GARZA MD on Jan 08 2025 11:44AM EST [id number] Normal [facility] PTH-Intact SerPl-mCncon 05- Parathyrin.intact [Mass/Vol] 254 pg/mL High 15 [facility] Comment on above: Order Comment: Speci men Type: BLOOD SPECIMENOrdering Facility: [facility] Address: [address] [place] [address] Performed By: #### 2 731-8 ####[facility] LABCLIA [id number] [place] [address] [place] THERAPY NTon 01-08-2025 THERAPY NT HNO ID: [id number] Author: SONA HILL PT Service: Physical Therapy Author Type: Physical Therapist Type: Therapy (PT/OT/Speech/Resp) Filed: 01/08/2025 16:37 Note Text: -- Summary: PT missed visit -- PHYSICAL THERAPY MISSED VISIT SERVICE DATE: 01/08/2025 SERVICE TIME: 1620 ROOM: [place] [address] Patient not seen due to Clinical Appropriateness.discussed patient status and appropriateness with RN, still not appropriate per RN and transferring to step down unit. Ortho consult note in chart, recommending WBAT. However currently has bedrest orders and will require updated activity order. Will approach as patient appropriate and has updated activity orders. SIGNATURE: Sona Hill PT PATIENT NAME: Mauri Quinones DATE: January 08, 2025 TIME: 4:34 PM [facility] THERAPY NT HNO ID: [id number] Author: CARLOS EDUARDO HELTON OT/Farhana Service: ? Author Type: Occupational Therapist Type: Therapy (PT/OT/Speech/Resp) Filed: 01/08/2025 10:49 Note Text: -- Summary: OT missed visit -- OCCUPATIONAL THERAPY MISSED VISIT SERVICE DATE: 01/08/2025 SERVICE TIME: 0715 ROOM: [place] [address] Patient not seen due to Incomplete Orders. Pt awaiting ortho consult for L sacral fracture and L superior pubic fracture. Will continue to follow for ortho recs and re-attempt as able/appropriate. 10:48 addendum: RN requesting OT hold eval at this time, team doing a STAT workup and pt unstable to participate at this time. SIGNATURE: Carlos Eduardo Helton OT/L PATIENT NAME: Mauri Quinones DATE: January 08, 2025 TIME: 7:15 AM [facility] XR CHEST 1V FRONTAL PORTon 0 01-08-2025 XR CHEST 1V FRONTAL PORT * * *Final Report* * * DATE OF EXAM: Jan 08 2025 12:16PM MDX 5376 - XR CHEST 1V FRONTAL PORT / PROCEDURE REASON: Mental status change * * * * Physician Interpretation * * * * EXAMINATION: CHEST RADIOGRAPH (PORTABLE SINGLE VIEW AP) Exam Date/Time: 01/08/2025 12:16 PM CLINICAL HISTORY: Mental status change MQ: XCPR_5 Comparison: 01/12/2023 RESULT: Lines, tubes, and devices: None. Lungs and pleura: Bilateral pulmonary vascular congestion may represent early signs of congestive failure. No overt edema is seen. Cardiomediastinal silhouette: Heart is moderately enlarged Other: Bony structures unremarkable. IMPRESSION: Findings as discussed under Results portion of report. Crts: PSCB Transcribe Date/Time: Jan 08 2025 12:17P Dictated by : OSMAN JORDAN DO This examination was interpreted and the report reviewed and electronically signed by: OSMAN JORDAN DO on Jan 08 2025 12:19PM EST [id number] [facility] CONSULTon 01-07-2025 CONSULT HNO ID: [id number] Author: JOSAFAT LOREDO MD Service: Nephrology Author Type: Physician Type: Consults Filed: 01/08/2025 08:07 Note Text: INPATIENT INITIAL NEPHROLOGY CONSULT SERVICE DATE: 01/07/2025 SERVICE TIME: 11:44 AM REASON FOR CONSULT: ESRD on hemodialysis REQUESTING PHYSICIAN: Dr. Ohara PRIMARY CARE PHYSICIAN: Rigoberto Gould MD CC: Fall and left rib pain Subjective Mr. Quinones is a 69 year old male with past medical history significant for: Coronary artery status post CABG, hypertension, type 2 diabetes, A-fib on Eliquis, end-stage renal disease on hemodialysis Sunday, chronic systolic and diastolic heart failure with ejection fraction 45% and grade 2 diastolic dysfunction, right KEMAR and right TKA presented with fall and left hip pain. Pain is usually wheelchair-bound and was transferring out of the shower when he fell to the ground. Had a left hip pain. In emergency room when she found 8.4 hemoglobin 12.7 sodium 134 BUN 22 creatinine 3.[address] scan of the pelvis revealed minimally displaced fracture of left sacrum with questionably minimally displaced fractures of the left superior pelvic ramus. Patient IV with insulin. Patient has been on hemodialysis for last 2 years and roaster and getting dialysis through left upper extremity AV fistula. Last dialysis was yesterday no need for dialysis today PAST MEDICAL HISTORY Diagnosis Date Acute on chronic diastolic congestive heart failure ([facility]) 07/14/2018 GARRET (acute kidney injury) 03/24/2019 GARRET (acute kidney injury) 03/24/2019 Ankylosing spondylitis ([facility]) CAD (coronary artery disease) Cellulitis Chronic combined systolic and diastolic CHF (congestive heart failure) ([facility]) 03/24/2019 CKD (chronic kidney disease) stage 3, GFR 30-59 ml/min ([facility]) 03/24/2019 Constipation Diabetes ([facility]) Gout High phosphate levels 03/24/2019 History of coronary artery bypass graft 04/18/2019 04/10/17 CARTY to LAD, SVG to PDA, SVG to OM Hx of fracture multiple bones Hyperkalemia 03/24/2019 Hypoalbuminemia 03/24/2019 Hyponatremia 03/24/2019 Hypoxia 03/24/2019 Ischemic cardiomyopathy 04/18/2019 Echocardiogram 01/10/19 Dr. Nunez: Dilated left ventricle, left ventricular ejection fraction 40%, mild to moderate systolic dysfunction, moderate concentric LVH, dilated left and right atria. Mild mitral valve thickening with papillary muscle dysfunction, mild mitral valve insufficiency, tricuspid valve insufficiency, aortic valve insufficiency, pulmonic valve insufficiency. Aortic valve calcifi NSTEMI (non-ST elevated myocardial infarction) ([facility]) 03/12/2017 [facility] admit Osteoarthritis Transition of care performed with sharing of clinical summary 04/08/2019 Admit [facility] 03/21/19-03/22/19 Discharge diagnoses chronic kidney disease with worsening creatinine, acute kidney injury Hypokalemia Toxic encephalopathy secondary to Flexeril overusage Type 2 diabetes Ischemic cardiomyopathy Coronary artery disease Ligamental cervical neck strain and acute Pulmonary hypertension Hypertension Pyuria Preadmit: to [facility] ED with slurred speech, lethargy. PAST SURGICAL HISTORY Procedure Laterality Date ARTHRP ACETBLR/PROX FEM PROSTC AGRFT/ALGRFT Right 2019 Dr Peguero CORONARY ARTERY BYPASS GRAFT 04/12/2017 x 3 FEMUR RIGHT OP SURGERY Right Repair of fracture with hardward HIP SURGERY HX Right pin KNEE ARTHROSCOPY Left x2 KNEE SURGERY HX Right TKR, right, arthoscopy x3 PAST SURGICAL HISTORY OF 09/07/2017 08/15/17 fx radius in 2 places; plate and screws.Plate and screws 09/07/17 [facility] TOE SURGERY HX Right FAMILY HISTORY Problem Relation Age of Onset Arthritis Mother Coronary Artery Disease Mother Diabetes Mother Heart Mother Hypertension Mother Alcohol/Drug Father Arthritis Father Heart Father Hypertension Father Social History Tobacco Use Smoking status: Never Smokeless tobacco: Former Types: Chew Quit date: 04/17/2017 Substance Use Topics Alcohol use: No Comment: seldom Drug use: No Prior to Admission Medications Prescriptions Last Dose Informant Patient Reported? Taking? B Complex-Vitamin C-Folic Acid (NEPHRO-SAVANAH) 0.8 mg tab 01/06/2025 Yes Yes Sig: Take 1 tablet by mouth every morning. ELIQUIS 5 mg tab(s) 01/06/2025 Yes Yes Sig: Take 1 tablet by mouth. Insulin [place], Disposable, (BD ULTRA-FINE GOLDY PEN NEEDLE) 32 gauge x No No Sig: Use one needle for each dose. once/day. LANTUS SOLOSTAR U-100 INSULIN 100 unit/mL (3 mL) 01/06/2025 No Yes Sig: Inject 10 Units subcutaneously daily at bedtime. Tadalafil (CIALIS) 20 mg tablet No No Sig: Take 1 tablet by mouth once daily as needed. Do not take at same time as doxazosin acetaminophen (TYLENOL EX STR RAPID RELEASE ORAL) Yes No Sig: Take 1-2 capsules by mouth every 6 hours as needed (pain). ammonium lactate (LAC-HYDRIN) 12 % cream 01/06/2025 No Yes Sig: Apply to affected area as needed (more content not included)... Normal [facility] HISTORY PHYSICALon HISTORY PHYSICAL HNO ID: [id number] Author: SHE OHARA DO Service: Hospital Medicine Author Type: Physician Type: H&P Filed: 01/07/2025 14:03 Note Text: DEPARTMENT OF HOSPITAL MEDICINE HISTORY AND PHYSICAL EXAM SERVICE DATE: 01/07/2025 SERVICE TIME: 10:50 AM Primary Care Physician: Rigoberto Gould MD NIGHT AND WEEKEND COVERAGE: [place] COVERAGE: Days: [phone], please page attending physician. Nights: [phone], please page [place] [facility] Night coverage pager [phone]. Subjective CHIEF COMPLAINT: Fall and left hip pain HPI: This is a 69 year old male hx of DM, CAD s/p CABG, afib on eliquis, ESRD on IHD T TH Sat, Chronic systolic and diastolic heart failure (EF 45% grade 2 diastolic dysfunction, RVSP 49mmHg), Right KEMAR and Right TKA who presents with fall and left hip pain. He uses a wheelchair at baseline and was transferring out of the shower when he had a fall to the ground. He had left hip pain that was severe and presented to the ED. He continues to have pain in the left hip. He points to the outside of the hip and towards the back but no pain in the groin area. He denies any LOC. No fever or chills. Denies CP, SOB abd pain, N/V In the ED Labs showed WBC 8.4 Hg 12.7 Hct 38.4 plt 137 BMP unremarkable except for Na 134 and bun 32 banking pin adjuster 3.12. INR was 1.2. CT brain without acute process. Xray of the pelvis showed no fracture. CT of the pelvis was done due to pain and showed minimally displaced fracture of the left sacrum, questionable minimally displaced fracture of the left superior pelvic ramus, no evidence of R KEMAR hardware complication He was transferred to [place] for evaluation by orthopedics. PAST MEDICAL HISTORY Diagnosis Date Acute on chronic diastolic congestive heart failure (HCC) 07/14/2018 GARRET (acute kidney injury) 03/24/2019 GARRET (acute kidney injury) 03/24/2019 Ankylosing spondylitis (HCC) CAD (coronary artery disease) Cellulitis Chronic combined systolic and diastolic CHF (congestive heart failure) ([facility]) 03/24/2019 CKD (chronic kidney disease) stage 3, GFR 30-59 ml/min ([facility]) 03/24/2019 Constipation Diabetes ([facility]) Gout High phosphate levels 03/24/2019 History of coronary artery bypass graft 04/18/2019 04/10/17 CARTY to LAD, SVG to PDA, SVG to OM Hx of fracture multiple bones Hyperkalemia 03/24/2019 Hypoalbuminemia 03/24/2019 Hyponatremia 03/24/2019 Hypoxia 03/24/2019 Ischemic cardiomyopathy 04/18/2019 Echocardiogram 01/10/19 Dr. Nunez: Dilated left ventricle, left ventricular ejection fraction 40%, mild to moderate systolic dysfunction, moderate concentric LVH, dilated left and right atria. Mild mitral valve thickening with papillary muscle dysfunction, mild mitral valve insufficiency, tricuspid valve insufficiency, aortic valve insufficiency, pulmonic valve insufficiency. Aortic valve calcifi NSTEMI (non-ST elevated myocardial infarction) (HCC) 03/12/2017 [facility] admit Osteoarthritis Transition of care performed with sharing of clinical summary 04/08/2019 Admit [facility] 03/21/19-03/22/19 Discharge diagnoses chronic kidney disease with worsening creatinine, acute kidney injury Hypokalemia Toxic encephalopathy secondary to Flexeril overusage Type 2 diabetes Ischemic cardiomyopathy Coronary artery disease Ligamental cervical neck strain and acute Pulmonary hypertension Hypertension Pyuria Preadmit: to [facility] ED with slurred speech, lethargy. PAST SURGICAL HISTORY Procedure Laterality Date ARTHRP ACETBLR/PROX FEM PROSTC AGRFT/ALGRFT Right 2018 Dr Peguero CORONARY ARTERY BYPASS GRAFT 04/12/2017 x 3 FEMUR RIGHT OP SURGERY Right Repair of fracture with hardward HIP SURGERY HX Right pin KNEE ARTHROSCOPY Left x2 KNEE SURGERY HX Right TKR, right, arthoscopy x3 PAST SURGICAL HISTORY OF 09/07/2017 08/15/17 fx radius in 2 places; plate and screws.Plate and screws 09/07/17 [facility] TOE SURGERY HX Right FAMILY HISTORY Problem Relation Age of Onset Arthritis Mother Coronary Artery Disease Mother Diabetes Mother Heart Mother Hypertension Mother Alcohol/Drug Father Arthritis Father Heart Father Hypertension Father Social History Tobacco Use Smoking status: Never Smokeless tobacco: Former Types: Chew Quit date: 04/17/2017 Substance Use Topics Alcohol use: No Comment: seldom Drug use: No PRIOR TO ADMISSION MEDICATIONS: Prior to Admission Medications Prescriptions Last Dose Informant Patient Reported? Taking? B Complex-Vitamin C-Folic Acid (NEPHRO-SAVANAH) 0.8 mg tab 01/06/2025 Yes Yes Sig: Take 1 tablet by mouth every morning. ELIQUIS 5 mg tab(s) 01/06/2025 Yes Yes Sig: Take 1 tablet by mouth. Insulin [place], Disposable, (BD ULTRA-FINE GOLDY PEN NEEDLE) 32 gauge x No No Sig: Use one needle for each dose. once/day. LANTUS SOLOSTAR U-100 INSULIN 100 unit/mL (3 mL) 01/06/2025 No Yes Sig: Inject 10 Units subcutaneously daily at bedtime. Tadalafil (CIALIS) 20 mg tablet No No Sig: Take 1 tablet b (more content not included)... [facility] 12 Lead EKGon 01-06-2025 12 Lead EKG [facility] Cardiovascular Services [address] [place] [address] 12 Lead EKG 01/06/25 1852 MR#: [id number] Acct: [id number] Name: MAURI QUINONES Rep #: [id number] : 1955 69 From: José Miguel Nunez MD Attending Dr: Status: DEP ER Ordering Dr: Martín Romano DO Date: 01/06/25 Location: ED Sex: M C Admitted: Test Reason : DYSRHYTHMIA Blood Pressure : */* mmHG Vent. Rate : 69 BPM Atrial Rate : * BPM P-R Int : * ms QRS Dur : 128 ms QT Int : 440 ms P-R-T Axes : * -70 115 degrees QTcB Int : 471 ms Atrial fibrillation with premature ventricular or aberrantly conducted complexes Left axis deviation Right bundle branch block Anteroseptal infarct , age undetermined T wave abnormality, consider lateral ischemia Abnormal ECG Confirmed by JOSÉ MIGUEL NUNEZ MD ([id number]), mapping editor EDELMIRA MANLEY ([id number]) on 01/12/2025 8:59:24 AM Referred By: Confirmed By: JOSÉ MIGUEL NUNEZ MD 01/12/25 0859 Date José Miguel Nunez MD CC: Dr. Ra Aaron DO; Dr. Martín Romano DO; Dr. Rigoberto Gould MD Signed [facility] Absolute lymphocyte countOrd ered By: Martín Romano on 01-06-2025 Lymphocytes Auto (Unsp spec) [#/Vol] 0.63 10*3/uL Low 0.83-4.51 [facility] Activated partial thrombopla stin time (aPTT) in platelet poor plasma by coagulation aOrdered By: Martín Romano on 01-06-2025 aPTT Coag (PPP) [Time] 32.1 s 24.1-36.2 [facility] Anion gap in Serum or Plasma Ordered By: Martín Romano on 01-06-2025 Anion gap [Moles/Vol] 14 mmol/L 5-15 [facility] Automated lymphocyte count a s percentage of total leukocytesOrdered By: Martín Romano on 01-06-2025 Lymphocytes/100 WBC Auto (Unsp spec) 7.5 % Low 19-41 [facility] BUN/creatinine ratioOrdered By: Martín Romano on 01-06-2025 Urea nitrogen/Creatinine [Mass ratio] 10.1 mg/mg 10- [facility] Basic Metabolic Profile (BMP )on 01-06-2025 BUN/CRE 10.1 RATIO Normal 10- [facility] Comment on above: Performed By: #### L 501.080 #### [facility] Laboratory [address] [place], [address] Calcium [Mass/Vol] 9.7 mg/dL Normal 7.6-11.0 [facility] Comment on above: Performed By: #### L [id number] #### [facility] [address] [place], [address] Chloride [Moles/Vol] 92 mmol/L Low 98-108 [facility] Comment on above: Performed By: #### L [id number] #### [facility] [address] [place], [address] CO2 [Moles/Vol] 28.6 mmol/L Normal 21.0-32.0 [facility] Comment on above: Performed By: #### L [id number] #### [facility] [address] [place], [address] Creatinine [Mass/Vol] 3.12 mg/dL High 0.70-1.20 [facility] Comment on above: Performed By: #### L [id number] #### [facility] [address] [place], [address] ECRCL 23.72 ml/min Low 50-250 [facility] Comment on above: Performed By: #### L [id number] #### [facility] Laboratory [address] [place], [address] GAP 14 Normal 5-15 [facility] Comment on above: Performed By: #### L 501.080 #### [facility] Laboratory [address] [place], [address] GFR/1.73 sq M.predicted among non-blacks MDRD (S/P/Bld) [Vol rate/Area] 21 mL/min/{1.73_m2} Low >60 [facility] Comment on above: Result Comment: mL/m in/1.73m2 CKD-EPI Creatinine Equation (2020) Performed By: #### L 501.080 #### [facility] Laboratory [address] [place], [address] Glucose [Mass/Vol] 126 mg/dL High 70-99 [facility] Comment on above: Performed By: #### L 501.080 #### [facility] [address] [place], [address] Potassium [Moles/Vol] 3.8 mmol/L Normal 3.3-5.1 [facility] Comment on above: Performed By: #### L [id number] #### [facility] [address] [place], [address] Sodium [Moles/Vol] 134 mmol/L Normal 133-145 [facility] Comment on above: Performed By: #### L 501.080 #### [facility] [address] [place], [address] Urea nitrogen [Mass/Vol] 32 mg/dL High 4-19 [facility] Comment on above: Performed By: #### L 501.080 #### [facility] Laboratory [address] [place], [place], [address] Basophil percentageOrdered B y: Martín Romano on 01-06-2025 Basophils/100 WBC (Bld) 0.5 % 0-1 [facility] Brain/Head without Contrasto n 01-06-2025 Brain/Head without Contrast [facility] Imaging Services [address] [place], [place] [address] Brain/Head without Contrast MR#: [id number] Acct: [id number] Name: MAURI QUINONES Rep #: [id number] : 1955 M 69 From: Vincent Monteiro MD PCP: Dr. Rigoberto Gould MD Status: REG ER Study: Brain/Head without Contrast Date of Exam: 12/25 11/18 Exam# [id number] Ordering Dr: Martín Romano DO PROCEDURE: BRAIN/HEAD WITHOUT CONTRAST 01/06/2025 REASON FOR EXAM: HEAD INJURY TECHNIQUE: Head CT without intravenous contrast. Coronal and Sagittal reconstruction series were provided. One or more dose reduction techniques were used (e.g., Automated exposure control, adjustment of the mA and/or kV according to patient size, use of iterative reconstruction technique. RADIATION DOSE SUMMARY: CTDlvol: 45.0 mGy DLP: 897 mGycm COMPARISON: CT head 03/21/2019, MRI brain 02/19/2020 FINDINGS: Brain: No acute intracranial hemorrhage, mass effect, or midline shift. Low density in the periventricular white matter suggests chronic small vessel ischemic changes. Calcification along the falx is unchanged. CSF Spaces: Mild generalized cerebral atrophy. Sinuses/Mastoids: Complete opacification of the left mastoid sinus, and near-complete opacification of the right. The mastoid air cells are clear. Bones: No displaced calvarial fracture. Status post bilateral cataract extraction. Extensive calcification of the intracranial vasculature. Tonsilliths bilaterally. Soft tissue debris in the right external auditory canal, likely cerumen. CT/Brain/Head without Contrast IMPRESSION: No acute intracranial abnormality. Senescent changes. Reading Location: [facility] CC: Dr. Martín oRmano DO; Dr. Rigoberto Gould MD Crts: Signed Normal [facility] CBC W/Diff, Automatedon 05-1 -2024 Absolute Lymph 0.63 X10 3/uL Low 0.83-4.51 [facility] Comment on above: Performed By: #### L 501.080 #### [facility] Laboratory [address] [place], [address] Absolute Neut 6.8 X10 3/uL Normal 2.0-7.7 [facility] Comment on above: Performed By: #### [id number] #### [facility] [address] [place], [address] Basophils/100 WBC (Bld) 0.5 % Normal 0-1 [facility] Comment on above: Performed By: #### L [id number] #### [facility] Laboratory [address] [place], [address] Eosinophils/100 WBC (Bld) 1.1 % Normal 0-5 [facility] Comment on above: Performed By: #### L 501.080 #### [facility] Laboratory [address] [place], [address] Erythrocyte distribution width (RBC) [Ratio] 15.9 % High 11.6-14.6 [facility] Comment on above: Performed By: #### L 501.080 #### [facility] Laboratory [address] [place], [address] Hematocrit (Bld) [Volume fraction] 38.4 % Low 40-54 [facility] Comment on above: Performed By: #### L 501.080 #### [facility] Laboratory [address] [place], [address] Hemoglobin (Bld) [Mass/Vol] 12.7 g/dL Low 13.0-16.5 [facility] Comment on above: Performed By: #### L 501.080 #### [facility] [address] [place], [address] IG% 1.000 High 0.0-0.9 [facility] Comment on above: Result Comment: IG% - Immature Granulocytes (promyelocytes, myelocytes and metamyelocytes) > 1% indicates that a LEFT SHIFT is Present. Performed By: #### L 501.080 #### [facility] [address] [place], [address] Lymphocytes/100 WBC (Bld) 7.5 % Low 19-41 [facility] Comment on above: Performed By: #### L [id number] #### [facility] Laboratory [address] [place], [address] MCH (RBC) [Entitic mass] 32.1 pg High 27.0-32.0 [facility] Comment on above: Performed By: #### L 501.080 #### [facility] Laboratory [address] [place], [address] MCHC (RBC) [Mass/Vol] 33.1 g/dL Normal 32-36 [facility] Comment on above: Performed By: #### L 501.080 #### [facility] [address] [place], [address] MCV (RBC) [Entitic vol] 97.0 fL High 80-94 [facility] Comment on above: Performed By: #### L 501.080 #### [facility] Laboratory [address] [place], [address] Monocytes/100 WBC (Bld) 8.8 % Normal 0-10 [facility] Comment on above: Performed By: #### L 501.080 #### [facility] [address] [place], [address] Neutrophils/100 WBC (Bld) 81.1 % High 47-70 [facility] Comment on above: Performed By: #### L 501.080 #### [facility] [address] [place], [address] Nucleated RBC (Bld) [#/Vol] 0 10*3/uL Normal 0-5 [facility] Comment on above: Performed By: #### L 501.080 #### [facility] [address] [place], [address] Platelet mean volume (Bld) [Entitic vol] 10.2 fL Normal 6.2-12.0 [facility] Comment on above: Performed By: #### L 501.080 #### [facility] [address] [place], [address] Platelets (Bld) [#/Vol] 137 10*3/uL Low 150-450 [facility] Comment on above: Performed By: #### L 501.080 #### [facility] [address] [place], [address] RBC (Bld) [#/Vol] 3.96 10*6/uL Low 4.6-6.2 [facility] Comment on above: Performed By: #### L 501.080 #### [facility] [address] [place], [address] RDW SD 56.9 fl High 35.1-43.9 [facility] Comment on above: Performed By: #### L 501.080 #### [facility] [address] [place], [address] WBC (Bld) [#/Vol] 8.4 10*3/uL Normal 4.4-11.0 [facility] Comment on above: Performed By: #### L 501.080 #### [facility] Laboratory [address] [place], [address] CNNURSEon 01-06-2025 CNNURSE Nurse Visit (UROLMD) -- QUINONESMAURI CHANEL ([id number]) 1955 M [facility] Date Time Provider Department 01/06/25 1:00 PM NURSE MARTÍNEZ ADAM LINO During your visit today, we recorded the following information about you: Nick uMñoz, RN 01/23/2025 10:48 AM Signed Patient presents to have bladder drained. Patient is a dialysis patient but has retention and history of UTI's. Catheter inserted and 350 ml brownish urine. Patient to have drained weekly to try to prevent UTI. Allergies As of Date: 01/06/2025 Noted Allergy Reaction LYRICA (PREGABALIN) 03/23/2017 7 - Swelling Date Reviewed: 12/30/2024 Reviewed by: Raymond Hastings MA - Fully Assessed Reason for Visit: Urinary Retention [228] Primary Visit Diagnosis:Urine retention [R33.9] Prescriptions as of 01/23/2025 - bumetanide (BUMEX) 2 mg tablet Take 1 tablet by mouth every Sunday, Sunday, Sunday, and Sunday. - apixaban (ELIQUIS) 5 mg tab(s) Take 1 tablet by mouth two times a day. - HYDROcodone-acetaminophen (NORCO) 5-325 mg per tablet Take 1 tablet by mouth once daily as needed (Give 1 tablets before physical therapy/on Sunday, , and Sunday for transport to dialysis, before weekly there is the bladder catheterization) for up to 7 days. - traZODone (DESYREL) 50 mg tablet Take 0.5 tablets by mouth daily at bedtime for 167 doses. - midodrine (PROAMITINE) 5 mg tablet Take 5 mg by mouth three times a day. - ammonium lactate (LAC-HYDRIN) 12 % cream Apply to affected area as needed. - Tadalafil (CIALIS) 20 mg tablet Take 1 tablet by mouth once daily as needed. Do not take at same time as doxazosin - pantoprazole DR (PROTONIX) 40 mg tablet Take 1 tablet by mouth every morning. - Insulin [place], Disposable, (BD ULTRA-FINE GOLDY PEN NEEDLE) 32 gauge x Use one needle for each dose. once/day. - atorvastatin (LIPITOR) 40 mg tablet Take 1 tablet by mouth daily at bedtime. - loratadine (CLARITIN) 10 mg tablet Take 1 tablet by mouth once daily. - sevelamer carbonate (RENVELA) 800 mg tablet Take 800 mg by mouth three times daily with meals. - B Complex-Vitamin C-Folic Acid (NEPHRO-SAVANAH) 0.8 mg tab Take 1 tablet by mouth every morning. - melatonin 5 mg tablet Take 10 mg by mouth at bedtime as needed for for insomnia. - acetaminophen (TYLENOL EX STR RAPID RELEASE ORAL) Take 1-2 capsules by mouth every 6 hours as needed (pain). - latanoprost (XALATAN) 0.005 % ophthalmic solution Use 1 Drop in both eyes daily at bedtime. into affected eye(s). 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] 09/24/2017 Hypertension, essential [I10] 10/23/2017 Lower leg edema [R60.0] 01/22/2018 12/02/2021 Chronic left hip pain [M25.552, G89.29] 03/04/2018 10/30/2022 Anemia of chronic renal failure, stage 3 (moder*03/05/2018 12/02/2021 Acute on chronic diastolic congestive heart zane*07/14/2018 Recurrent right pleural effusion [J90] 07/14/2018 12/02/2021 PVD (peripheral vascular disease) (HCC) [I73.9] 07/16/2018 Altered mental status [R41.82] 03/24/2019 07/05/2019 UTI (urinary tract infection) [N39.0] 03/24/2019 12/02/2021 Chronic combined systolic and diastolic CHF (co*03/24/2019 Hyperkalemia [E87.5] 03/24/2019 12/02/2021 Hypoxia [R09.02] 03/24/2019 12/02/2021 Hypoalbuminemia [E88.09] 03/24/2019 12/02/2021 GARRET (acute kidney injury) (HCC) [N17.9] 03/24/2019 12/02/2021 CKD (chronic kidney disease) stage 3, GFR 30-59*03/24/2019 04/18/2019 High phosphate levels [E83.39] 03/24/2019 12/02/2021 Hyponatremia [E87.1] 03/24/2019 12/02/2021 Delirium [R41.0] 03/29/2019 12/02/2021 Malnutrition of moderate degree (HCC) [E44.0] 04/01/2019 12/02/2021 Transition of care performed with sharing of cl*04/08/2019 04/18/2019 Chronic kidney disease, stage IV (severe) (HCC)*04/18/2019 12/02/2021 Ischemic cardiomyopathy [I25.5] 04/18/2019 Sprain of ligament of cervical spine region [S1*04/18/2019 12/02/2021 History of coronary artery bypass graft [Z95.1] 04/18/2019 History of ventricular tachycardia [Z86.79] 04/18/2019 Proliferative retinopathy of both eyes associat*06/17/2019 Flaccid neuropathic bladder, not elsewhere clas*06/04/2020 12/02/2021 Encounter for support and coordination of trans*10/06/2020 12/02/2021 Osteopenia, senile [M85.80] 10/06/2020 Other fracture of right femur, initial encounte*04/23/2022 UGIB (upper gastrointestinal bleed) [K92.2] 04/30/2022 10/30/2022 Blood loss anemia [D50.0] 04/30 (more content not included)... Normal [facility] Carbon dioxide, total [Moles /volume] in Central venous bloodOrdered By: Martín Romano on 01-06-2025 CO2 [Moles/Vol] 28.6 mmol/L 21.0-32.0 [facility] Chloride assayOrdered By: Mic Romano on 01-06-2025 Chloride [Moles/Vol] 92 mmol/L Low 98-108 [facility] Emergency Department Summary on 01-06-2025 Emergency Department Summary [facility] Medical Records Department [address] [place] [address] Emergency Department Summary 01/06/25 MR#: [id number] Acct: [id number] Name: MAURI QUINONES Rep #: [id number] : 1955 69 From: Martín Harrison PCP: Dr. Rigoberto Gould MD Status:DEP ER Location: ED HPI HPI - Fall History of Present Illness Chief Complaint: Fall Informant: patient and spouse/S.O. Narrative Narrative: Presents with worsening left hip pain after fall out of his wheelchair today. History of right total hip arthroplasty right total knee arthroplasty with intramedullary nail in the femur on the right side. He states last year no injury with fracture to the lower leg right side. He is using wheelchair since then however now able to weight-bear transfer along with using walker for short distances. He is currently followed by orthopedist at [place] Colleen Fuentes, states has spurs in his left hip. He is on Eliquis history of atrial fibrillation, last dose was yesterday. He states he slightly bumped his head. No headache no neck pain. No chest or back pain. In addition dialysis patient, Tuesdays, , Saturdays, followed by Dr. Jackson. He currently does not make any urine. He did have dialysis yesterday. Prior similar symptoms: Yes PFSH PFSH Medical History Persistent atrial fibrillation Paroxysmal atrial fibrillation C. difficile diarrhea Anemia History of GI bleed Pure hypercholesterolemia Ischemic cardiomyopathy Essential hypertension Renal insufficiency Ankylosing spondylitis CAD (coronary artery disease) Overweight (BMI 25.0-29.9) Leg edema Leg swelling Acute systolic heart failure Bradycardia Biliary pleural effusion HTN (hypertension) Ventricular tachyarrhythmia Atherosclerosis of [place] coronary artery of [place] heart without angina pectoris Pulmonary HTN Cardiomyopathy Valvular heart disease NSTEMI (non-ST elevated myocardial infarction) CHF (congestive heart failure) Abscess of right foot Diabetes mellitus with neuropathy Gout DM2 (diabetes mellitus, type 2) Home Medications ???Medication ???Instructions ???Recorded ???Last Taken ???Type latanoprost 0.005 % eye drops 1 drp EACH EYE QHS 06/03/18 History melatonin 5 mg tablet 10 mg PO HS PRN Sleep 08/02/20 History loratadine 10 mg capsule 10 mg PO DAILY PRN allergy symptom s 10/24/21 12/10/24 History handicap placcard #1 ea 07/07/22 Unknown Rx hydroxyzine HCl 25 mg tablet 25 mg PO Q6 PRN itch 10/28/2411/25 History tadalafil 20 mg tablet 20 mg PO DAILY PRN sexual activity 10/28/24 Unknown History atorvastatin 40 mg tablet 40 mg PO DAILY 12/11/24 12/21/24 H istory benzonatate 100 mg capsule 100 mg PO TID PRN cough 12/11/24 0 12/22/24 History pantoprazole 40 mg tablet,delayed 40 mg PO BID 12/11/24 12/22/24 Hi story release trazodone 50 mg tablet 100 mg PO QHS 12/11/24 12/21/24 Hi story vitamin B complex-vitamin C-folic 1 tab PO DAILY 12/11/24 12/22/24 History acid 0.8 mg tablet (Dialyvite 800) bumetanide 2 mg tablet 2 mg PO UD FLUID #90 tabs 12/13/24 12/22/24 Rx apixaban 5 mg tablet (Eliquis) 5 mg PO BID #180 tabs 12/26/24 Unk nown Rx midodrine 5 mg tablet 5 mg PO TID #270 tabs 12/26/24 Unk nown Rx carvedilol 12.5 mg tablet 12.5 mg PO BID 12/29/24 Unknown Hi story insulin glargine 100 unit/mL (3 unit subcut 12/29/24 Unknown Histo ry mL) subcutaneous pen (Lantus Solostar U-100 Insulin) metolazone 5 mg tablet 5 mg PO DAILY 12/29/24 Unknown His tory Allergy/AdvReac Type Severity Reaction Status Date / Time pregabalin (From Lyrica) Allergy Angioedema Verified 01/06/25 18:09 Family History Father CAD (coronary artery disease) Mother CAD (coronary artery disease) Surgical History History of cataract extraction hx femur surgery Hx of arthroscopy History of open reduction and internal fixation (ORIF) procedure Hx of CABG ( 04/12/17) Social History household members: spouse Smoking Status: Former smoker alcohol intake: never substance use type: does not use caffeine: No what type of physical activity do you participate in: none seatbelt use: always do you feel safe at home: Yes ROS ROS ED Constitutional Constitutional ED: Denies chills, fever(s) or sweats ENT ENT ED: Denies sore throat Cardiovascular Cardiovascular: Denies chest pain, leg edema, palpitations or racing heartbeat Respiratory/Chest Respiratory/Chest: Denies cough, dyspnea or dyspnea on exertion Gastrointestinal Gastrointestinal: Denies abdominal pain, diarrhea, nausea or vomiting Genitourinary Genitourinary (more content not included)... Normal [facility] Eosinophil percentageOrdered By: Martín Romano on 01-06-2025 Eosinophils/100 WBC (Bld) 1.1 % 0-5 [facility] Erythrocyte distribution wid th ratioOrdered By: Martín Romano on 01-06-2025 Erythrocyte distribution width (RBC) [Ratio] 15.9 % High 11.6-14.6 [facility] Erythrocyte distribution wid th standard deviationOrdered By: Martín Romano on 01-06-2025 Erythrocyte distribution width (RBC) [Ratio] 56.9 fl High 35.1-43.9 [facility] Glomerular filtration rate ( GFR) estimation/1.73 sq m using serum, plasma, or whole bOrdered By: Martín Romano on 01-06-2025 GFR/1.73 sq M.predicted among non-blacks MDRD (S/P/Bld) [Vol rate/Area] 21 mL/min/{1.73_m2} Low >60 [facility] HIP, UNI W/ Pelvis 2-3 Views on 01-06-2025 HIP, UNI W/ Pelvis 2-3 Views [facility] Imaging Services [address] [place] [address] HIP, UNI W/ Pelvis 2-3 Views MR#: [id number] Acct: [id number] Name: MAURI QUINONES Rep #: [id number] : 1955 69 From: Trino miguel MD PCP: Dr. Rigoberto Gould MD Status: REG ER Study: HIP, UNI W/ Pelvis 2-3 Views Date of Exam: Exam# [id number] Ordering Dr: Martín Romano DO PROCEDURE: HIP, UNI W/ PELVIS 2-3 VIEWS 01/06/2025 REASON FOR EXAM: INJURY TECHNIQUE: Three views of the left hip COMPARISON: None FINDINGS: Status post right hip arthroplasty with intact hardware. No acute fracture or dislocation. Diffuse osteopenia. Moderate left hip osteoarthritis. No suspicious lytic or blastic lesions. Severe atherosclerotic calcifications. RAD/HIP, UNI W/ Pelvis 2-3 Views IMPRESSION: No acute fracture or dislocation. Moderate left hip osteoarthritis. Reading Location: [facility] CC: Dr. Martín Romano DO; Dr. Rigoberto Gould MD Crts: Signed Normal [facility] Hematocrit Auto (Bld) [Volum e fraction]Ordered By: Martín Romano on 01-06-2025 Hematocrit (Bld) [Volume fraction] 38.4 % Low 40-54 [facility] Hemoglobin measurementOrdere d By: Martín Romano on 01-06-2025 Hemoglobin (Bld) [Mass/Vol] 12.7 g/dL Low 13.0-16.5 [facility] Immature granulocytes/100 WB C Auto (Bld)Ordered By: Martín Romano on 01-06-2025 Immature granulocytes/100 WBC (Bld) 1.000 % High 0.0-0.9 [facility] MCV (mean corpuscular volume ) determinationOrdered By: Martín Romano on 01-06-2025 MCV (RBC) [Entitic vol] 97.0 fL High 80-94 [facility] Mean corpuscular hemoglobin (MCH) determinationOrdered By: Martín Romano on 01-06-2025 MCH (RBC) [Entitic mass] 32.1 pg High 27.0-32.0 [facility] Monocyte percentageOrdered B y: Martín Romano on 01-06-2025 Monocytes/100 WBC (Bld) 8.8 % 0-10 [facility] Neutrophil percentageOrdered By: Martín Romano on 01-06-2025 Neutrophils/100 WBC (Bld) 81.1 % High 47-70 [facility] Partial Thromboplast Timeon 01-06-2025 aPTT Coag (Bld) [Time] 32.1 s Normal 24.1-36.2 [facility] Comment on above: Performed By: #### L 501.080 #### [facility] Laboratory [address] [facility] [place], [place], [address] Pelvis without IV Contraston 01-06-2025 Pelvis without IV Contrast [facility] Imaging Services [address] [place], [place] [address] Pelvis without IV Contrast MR#: [id number] Acct: [id number] Name: MAURI QUINONES Rep #: [id number] : 1955 M 69 From: Vincent Monteiro MD PCP: Dr. Rigoberto Gould MD Status: REG ER Study: Pelvis without IV Contrast Date of Exam: 01/06 Exam# [id number] Ordering Dr: Martín Romano DO PROCEDURE: PELVIS WITHOUT IV CONTRAST 01/06/2025 REASON FOR EXAM: INJURY TECHNIQUE: Pelvis CT without contrast. One or more dose reduction techniques were used (e.g., Automated exposure control, adjustment of the mA and/or kV according to patient size, use of iterative reconstruction technique). RADIATION DOSE SUMMARY: CTDlvol: 17.0 mGy DLP: 598 mGycm COMPARISON: CT abdomen and pelvis 12/29/2024, hip radiographs 01/06/2025 FINDINGS: Bones: Postoperative changes from right total hip arthroplasty slightly limits this evaluation. No hardware fracture or perihardware lucency. Ossifications adjacent to the right femoral neck are unchanged and likely postoperative. There is a minimally displaced fracture of the left sacrum (series 3, images 39-43). There is a questionable minimally displaced fracture at the left superior pubic ramus (series 3 image 74). No additional displaced fracture of the pelvis is identified. There is free fluid in the right pericolic gutter and pelvis. Extensive aortic atherosclerosis. Fluid and possibly bowel containing umbilical hernia, similar to prior. Hydroceles. CT/Pelvis without IV Contrast IMPRESSION: 1. Minimally displaced fracture of the left sacrum. 2. Questionable minimally displaced fracture of the left superior pubic ramus. 3. No evidence of right total hip arthroplasty hardware complication. 4. Moderate pelvic free fluid. Consider MRI to evaluate for additional nondisplaced fractures. Reading Location: [facility] CC: Dr. Martín Romano DO; Dr. Rigoberto Gould MD Crts: Signed Normal [facility] Platelet countOrdered By: Mic Romano on 01-06-2025 Platelets (Bld) [#/Vol] 137 10*3/uL Low 150-450 [facility] Potassium measurement (mass/ volume)Ordered By: Martín Romano on 01-06-2025 Potassium (Unsp spec) [Mass/Vol] 3.8 mmol/L 3.3-5.1 [facility] Prothrombin Time w/INRon INR Coag (PPP) [Relative time] 1.2 {INR} Normal [facility] Comment on above: Performed By: #### L 501.080 #### [facility] Laboratory [address] [place], [place], [id number] PT Coag (PPP) [Time] 15.5 s High 11.7-14.9 [facility] Comment on above: Performed By: #### L 501.080 #### [facility] Laboratory [address] [place], [place], [id number] Prothrombin timeOrdered By: Martín Romano on 01-06-2025 PT Coag (PPP) [Time] 15.5 s High 11.7-14.9 [facility] RBC Auto (Bld) [#/Vol]Ordere d By: Martín Basilia on 01-06-2025 RBC (Bld) [#/Vol] 3.96 10*6/uL Low 4.6-6.2 [facility] Serum creatinine measurement (mass/volume)Ordered By: Martín Romano on 01-06-2025 Creatinine [Mass/Vol] 3.12 mg/dL High 0.70-1.20 [facility] Serum glucose measurement (m ass/volume)Ordered By: Martín Romano on 01-06-2025 Glucose [Mass/Vol] 126 mg/dL High 70-99 [facility] Serum or plasma calcium sneha urement (mass/volume)Ordered By: Martín Romano on 01-06-2025 Calcium [Mass/Vol] 9.7 mg/dL 7.6-11.0 [facility] Serum or plasma urea nitroge n measurement (mass/volume)Ordered By: Martín Romano on 01-06-2025 Urea nitrogen [Mass/Vol] 32 mg/dL High 4-19 [facility] Sodium levelOrdered By: Martín Romano on 01-06-2025 Sodium [Moles/Vol] 134 mmol/L 133-145 [facility] White blood cell (WBC) count Ordered By: Martín Romano on 01-06-2025 WBC (Bld) [#/Vol] 8.4 10*3/uL 4.4-11.0 [facility] MAURI QUINONES ([id number]) 1955 M Date Time Provider Department 01/05/25 JENSEN PUCKETT JR UROMARA During your visit today, we recorded the following information about you: Lissette Sanabria, BISMARK 01/05/2025 2:42 PM Signed Patient calling to see which Dr. He saw when there at office. I attempted to call back and get patient the information. Left Dr. Puckett's name on voicemail, and advised to call back if needed. PLAN: Butler out today Will call if has to have replaced Would do cysto then MD Elly Holly Jr, Janelle, RN 01/06/2025 8:08 AM Signed Nick spoke with patient and coming in for Nurse visit today. Allergies As of Date: 01/05/2025 Noted Allergy Reaction LYRICA (PREGABALIN) 03/23/2017 7 - Swelling Date Reviewed: 12/30/2024 Reviewed by: Raymond Hastings MA - Fully Assessed Prescriptions as of 01/06/2025 - traZODone (DESYREL) 100 mg tablet Take 1 tablet by mouth daily at bedtime. - ELIQUIS 5 mg tab(s) Take 1 tablet by mouth. - midodrine (PROAMITINE) 5 mg tablet Take 5 mg by mouth three times a day. - ammonium lactate (LAC-HYDRIN) 12 % cream Apply to affected area as needed. - LANTUS SOLOSTAR U-100 INSULIN 100 unit/mL (3 mL) Inject 10 Units subcutaneously daily at bedtime. - hydrOXYzine HCl (ATARAX) 25 mg tablet Take 1 tablet by mouth every 6 hours as needed for itching/rash. - Tadalafil (CIALIS) 20 mg tablet Take 1 tablet by mouth once daily as needed. Do not take at same time as doxazosin - pantoprazole DR (PROTONIX) 40 mg tablet Take 1 tablet by mouth every morning. - Insulin [place], Disposable, (BD ULTRA-FINE GOLDY PEN NEEDLE) 32 gauge x Use one needle for each dose. once/day. - atorvastatin (LIPITOR) 40 mg tablet Take 1 tablet by mouth daily at bedtime. - bumetanide (BUMEX) 2 mg tablet Take 1 tablet by mouth every morning. - loratadine (CLARITIN) 10 mg tablet Take 1 tablet by mouth once daily. - sevelamer carbonate (RENVELA) 800 mg tablet Take 800 mg by mouth three times daily with meals. - B Complex-Vitamin C-Folic Acid (NEPHRO-SAVANAH) 0.8 mg tab Take 1 tablet by mouth every morning. - melatonin 5 mg tablet Take 10 mg by mouth at bedtime as needed for for insomnia. - acetaminophen (TYLENOL EX STR RAPID RELEASE ORAL) Take 1-2 capsules by mouth every 6 hours as needed (pain). - latanoprost (XALATAN) 0.005 % ophthalmic solution Use 1 Drop in both eyes daily at bedtime. into affected eye(s). 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] 09/24/2017 Hypertension, essential [I10] 10/23/2017 Lower leg edema [R60.0] 01/22/2018 12/02/2021 Chronic left hip pain [M25.552, G89.29] 03/04/2018 10/30/2022 Anemia of chronic renal failure, stage 3 (moder*03/05/2018 12/02/2021 Acute on chronic diastolic congestive heart zane*07/14/2018 Recurrent right pleural effusion [J90] 07/14/2018 12/02/2021 PVD (peripheral vascular disease) ([facility]) [I73.9] 07/16/2018 Altered mental status [R41.82] 03/24/2019 07/05/2019 UTI (urinary tract infection) [N39.0] 03/24/2019 12/02/2021 Chronic combined systolic and diastolic CHF (co*03/24/2019 Hyperkalemia [E87.5] 03/24/2019 12/02/2021 Hypoxia [R09.02] 03/24/2019 12/02/2021 Hypoalbuminemia [E88.09] 03/24/2019 12/02/2021 GARRET (acute kidney injury) ([facility]) [N17.9] 03/24/2019 12/02/2021 CKD (chronic kidney disease) stage 3, GFR 30-59*03/24/2019 04/18/2019 High phosphate levels [E83.39] 03/24/2019 12/02/2021 Hyponatremia [E87.1] 03/24/2019 12/02/2021 Delirium [R41.0] 03/29/2019 12/02/2021 Malnutrition of moderate degree (HCC) [E44.0] 04/01/2019 12/02/2021 Transition of care performed with sharing of cl*04/08/2019 04/18/2019 Chronic kidney disease, stage IV (severe) (HCC)*04/18/2019 12/02/2021 Ischemic cardiomyopathy [I25.5] 04/18/2019 Sprain of ligament of cervical spine region [S1*04/18/2019 12/02/2021 History of coronary artery bypass graft [Z95.1] 04/18/2019 History of ventricular tachycardia [Z86.79] 04/18/2019 Proliferative retinopathy of both eyes associat*06/17/2019 Flaccid neuropathic bladder, not elsewhere clas*06/04/2020 12/02/2021 Encounter for support and coordination of trans*10/06/2020 12/02/2021 Osteopenia, senile [M85.80] 10/06/2020 Other fracture of right femur, initial encounte*04/23/2022 UGIB (upper gastrointestinal bleed) [K92.2] 04/30/2022 10/30/2022 Blood loss anemia [D50.0] 04/30/2022 JOHNY (obstructive sleep apnea) [G47.33] (more content not included)... Normal [facility] CNPSharron 01-02-2025 CNPN Telephone (FAMPWS) -- MAURI QUINONES ([id number]) 1955 M Date Time Provider Department 01/02/25 ALEXUS MENDEZ During your visit today, we recorded the following information about you: Susu Hernandez RN 01/02/2025 11:40 AM Signed Patient calls with update on trazodone. Patient reports that he sees no difference in sleep with the trazodone. He reports the first few nights he was able to sleep several hours but since then he is back to sleeping an hour to an hour and a half every night. He reports that he takes the trazodone 30 minutes prior to bed and takes 2 of the melatonin either before or after and neither way have helped. Patient asking if he can increase the dose of trazodone. Pharmacy is [facility]. BISMARK Childress Jacqueline A, APRN.[employer] 01/02/2025 12:06 PM Signed Lets increase the dose to 100 mg at bedtime. Let me know again in a couple weeks how he is doing. It could be increased further if need be. Order sent to pharmacy. May take 2 of the 50s to use them up. Susu Hernandez RN 01/02/2025 12:56 PM Signed Call placed to patient and notified of below with verbalized understanding. Susu Hernandez RN Allergies As of Date: 01/02/2025 Noted Allergy Reaction LYRICA (PREGABALIN) 03/23/2017 7 - Swelling Date Reviewed: 12/30/2024 Reviewed by: Raymond Hastings MA - Fully Assessed Reason for Visit: Medication Problem [65] Visit Diagnosis:Chronic insomnia [F51.04] Order(s):traZODone (DESYREL) 100 mg tabletTake 1 tablet by mouth daily at bedtime.Disp: 30 tabletRfl: 5 Prescriptions as of 01/02/2025 - traZODone (DESYREL) 100 mg tablet Take 1 tablet by mouth daily at bedtime. - ELIQUIS 5 mg tab(s) Take 1 tablet by mouth. - midodrine (PROAMITINE) 5 mg tablet Take 5 mg by mouth three times a day. - ammonium lactate (LAC-HYDRIN) 12 % cream Apply to affected area as needed. - LANTUS SOLOSTAR U-100 INSULIN 100 unit/mL (3 mL) Inject 10 Units subcutaneously daily at bedtime. - hydrOXYzine HCl (ATARAX) 25 mg tablet Take 1 tablet by mouth every 6 hours as needed for itching/rash. - Tadalafil (CIALIS) 20 mg tablet Take 1 tablet by mouth once daily as needed. Do not take at same time as doxazosin - pantoprazole DR (PROTONIX) 40 mg tablet Take 1 tablet by mouth every morning. - Insulin [place], Disposable, (BD ULTRA-FINE GOLDY PEN NEEDLE) 32 gauge x Use one needle for each dose. once/day. - atorvastatin (LIPITOR) 40 mg tablet Take 1 tablet by mouth daily at bedtime. - bumetanide (BUMEX) 2 mg tablet Take 1 tablet by mouth every morning. - loratadine (CLARITIN) 10 mg tablet Take 1 tablet by mouth once daily. - sevelamer carbonate (RENVELA) 800 mg tablet Take 800 mg by mouth three times daily with meals. - B Complex-Vitamin C-Folic Acid (NEPHRO-SAVANAH) 0.8 mg tab Take 1 tablet by mouth every morning. - melatonin 5 mg tablet Take 10 mg by mouth at bedtime as needed for for insomnia. - acetaminophen (TYLENOL EX STR RAPID RELEASE ORAL) Take 1-2 capsules by mouth every 6 hours as needed (pain). - latanoprost (XALATAN) 0.005 % ophthalmic solution Use 1 Drop in both eyes daily at bedtime. into affected eye(s). 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] 09/24/2017 Hypertension, essential [I10] 10/23/2017 Lower leg edema [R60.0] 01/22/2018 12/02/2021 Chronic left hip pain [M25.552, G89.29] 03/04/2018 10/30/2022 Anemia of chronic renal failure, stage 3 (moder*03/05/2018 12/02/2021 Acute on chronic diastolic congestive heart zane*07/14/2018 Recurrent right pleural effusion [J90] 07/14/2018 12/02/2021 PVD (peripheral vascular disease) (HCC) [I73.9] 07/16/2018 Altered mental status [R41.82] 03/24/2019 07/05/2019 UTI (urinary tract infection) [N39.0] 03/24/2019 12/02/2021 Chronic combined systolic and diastolic CHF (co*03/24/2019 Hyperkalemia [E87.5] 03/24/2019 12/02/2021 Hypoxia [R09.02] 03/24/2019 12/02/2021 Hypoalbuminemia [E88.09] 03/24/2019 12/02/2021 GARRET (acute kidney injury) (HCC) [N17.9] 03/24/2019 12/02/2021 CKD (chronic kidney disease) stage 3, GFR 30-59*03/24/2019 04/18/2019 High phosphate levels [E83.39] 03/24/2019 12/02/2021 Hyponatremia [E87.1] 03/24/2019 12/02/2021 Delirium [R41.0] 03/29/2019 12/02/2021 Malnutrition of moderate degree (HCC) [E44.0] 04/01/2019 12/02/2021 Transition of care performed with sharing of cl*04/08/2019 04/18/2019 Chronic kidney disease, stage I (more content not included)... Normal [facility] CNOVon 12-30-2024 CNOV Office Visit (UROLMD ) -- MAURI QUINONES ([id number]) 1955 M Date Time Provider Department 12/30/24 2:45 PM JENSEN PUCKETT JR UROLMD During your visit today, we recorded the following information about you: Weight 80.3 kg Jensen Puckett Jr., MD 01/03/2025 3:13 PM Signed NEW PATIENT HISTORY AND PHYSICAL EXAM PATIENT INFO: Mauri Quinones 69 year old REFERRING PROVIDER: NO PCP PCP: Rigoberto Gould MD HPI Mauri Quinones is a 69 year old male refer for urinary retention. On HD. Makes very little urine. Would like butler removed. Discussed cysto. Declined for now. Not on alpha rufus. Would like to hold for now. Retention occurred during episode of UTI. Review of Systems Constitutional: Negative. Respiratory: Negative. Cardiovascular: Negative. Gastrointestinal: Negative. Genitourinary: Negative. Skin: Negative. Neurological: Negative. Psychiatric/Behavioral: Negative. LAB: Creatinine Date Value Ref Range Status 04/23/2023 4.48 (H) 0.50 - 1.40 mg/dL Final Comment: Patients receiving either N-Acetylcysteine (NAC) or Metamizole prior to venipuncture, may have falsely depressed results. No results found for: PSA Glucose, Urine Date Value 04/24/2022 Negative 03/23/2019 500 mg/dL Bilirubin, Urine (no units) Date Value 04/24/2022 Negative 03/23/2019 NEGATIVE Ketones, Urine Date Value 04/24/2022 Negative 03/23/2019 NEGATIVE mg/dL Specific [place], Ur (no units) Date Value 04/24/2022 1.014 03/23/2019 1.019 Hemoglobin/Blood,Ur Date Value 04/24/2022 Negative 07/25/2018 Negative pH, Urine (no units) Date Value 04/24/2022 7.0 03/23/2019 5.5 Protein, Urine Date Value 04/24/2022 2+ 03/24/2019 473.4 mg/dL Urobilinogen, Urine (EU/dL) Date Value 03/23/2019 1.0 Nitrites (no units) Date Value 04/24/2022 Negative 07/25/2018 Negative Nitrites Urine (no units) Date Value 03/23/2019 NEGATIVE WBC, Urine Date Value 04/24/2022 0-5 /HPF 03/23/2019 >900.0 /hpf MEDICATIONS: traZODone (DESYREL) 100 mg tablet Take 1 tablet by mouth daily at bedtime. ELIQUIS 5 mg tab(s) Take 1 tablet by mouth. midodrine (PROAMITINE) 5 mg tablet Take 5 mg by mouth three times a day. ammonium lactate (LAC-HYDRIN) 12 % cream Apply to affected area as needed. LANTUS SOLOSTAR U-100 INSULIN 100 unit/mL (3 mL) Inject 10 Units subcutaneously daily at bedtime. hydrOXYzine HCl (ATARAX) 25 mg tablet Take 1 tablet by mouth every 6 hours as needed for itching/rash. Tadalafil (CIALIS) 20 mg tablet Take 1 tablet by mouth once daily as needed. Do not take at same time as doxazosin pantoprazole DR (PROTONIX) 40 mg tablet Take 1 tablet by mouth every morning. Insulin [place], Disposable, (BD ULTRA-FINE GOLDY PEN NEEDLE) 32 gauge x Use one needle for each dose. once/day. atorvastatin (LIPITOR) 40 mg tablet Take 1 tablet by mouth daily at bedtime. bumetanide (BUMEX) 2 mg tablet Take 1 tablet by mouth every morning. loratadine (CLARITIN) 10 mg tablet Take 1 tablet by mouth once daily. sevelamer carbonate (RENVELA) 800 mg tablet Take 800 mg by mouth three times daily with meals. B Complex-Vitamin C-Folic Acid (NEPHRO-SAVANAH) 0.8 mg tab Take 1 tablet by mouth every morning. melatonin 5 mg tablet Take 10 mg by mouth at bedtime as needed for for insomnia. acetaminophen (TYLENOL EX STR RAPID RELEASE ORAL) Take 1-2 capsules by mouth every 6 hours as needed (pain). latanoprost (XALATAN) 0.005 % ophthalmic solution Use 1 Drop in both eyes daily at bedtime. into affected eye(s). HISTORIES PAST MEDICAL HISTORY Diagnosis Date Acute on chronic diastolic congestive heart failure (HCC) 07/14/2018 GARRET (acute kidney injury) 03/24/2019 GARRET (acute kidney injury) 03/24/2019 Ankylosing spondylitis (HCC) CAD (coronary artery disease) Cellulitis Chronic combined systolic and diastolic CHF (congestive heart failure) ([facility]) 03/24/2019 CKD (chronic kidney disease) stage 3, GFR 30-59 ml/min ([facility]) 03/24/2019 Constipation Diabetes ([facility]) Gout High phosphate levels 03/24/2019 History of coronary artery bypass graft 04/18/2019 04/10/17 CARTY to LAD, SVG to PDA, SVG to OM Hx of fracture multiple bones Hyperkalemia 03/24/2019 Hypoalbuminemia 03/24/2019 Hyponatremia 03/24/2019 Hypoxia 03/24/2019 Ischemic cardiomyopathy 04/18/2019 Echocardiogram 01/10/19 Dr. uNnez: Dilated left ventricle, left ventricular ejection fraction 40%, mild to moderate systolic dysfunction, moderate concentric LVH, dilated left and right atria. Mild mitral valve thickening with papillary muscle dysfunction, mild mitral valve insufficiency, tricuspid valve insufficiency, aortic valve insufficiency, pulmonic valve insufficiency. Aortic valve calcifi NSTEMI (non-ST elevated myocardial infarction) ([facility]) 03/12/2017 [facility] admit Osteoarthritis Transition of care performed with sharing o (more content not included)... Normal [facility]Non [facility] MAURI QUINONES ([id number]) 1955 Date Time Provider Department 12/30/24 RIGOBERTO GOULD [facility] During your visit today, we recorded the following information about you: Aditya Summers, RN 12/30/2024 9:07 AM Signed [facility]- phoned concerned about pt not voiding for one week and asked if patient had seen pcp. Given [facility] update on patient per chart notes. [facility] will call patient to discuss. Allergies As of Date: 12/30/2024 Noted Allergy Reaction LYRICA (PREGABALIN) 03/23/2017 7 - Swelling Date Reviewed: 12/17/2024 Reviewed by: Oralia Castro MA - Fully Assessed Reason for Visit: Patient Update [1234] Prescriptions as of 12/30/2024 - ELIQUIS 5 mg tab(s) Take 1 tablet by mouth. - midodrine (PROAMITINE) 5 mg tablet Take 5 mg by mouth three times a day. - traZODone (DESYREL) 50 mg tablet Take 1 tablet by mouth daily at bedtime. - ammonium lactate (LAC-HYDRIN) 12 % cream Apply to affected area as needed. - LANTUS SOLOSTAR U-100 INSULIN 100 unit/mL (3 mL) Inject 10 Units subcutaneously daily at bedtime. - hydrOXYzine HCl (ATARAX) 25 mg tablet Take 1 tablet by mouth every 6 hours as needed for itching/rash. - Tadalafil (CIALIS) 20 mg tablet Take 1 tablet by mouth once daily as needed. Do not take at same time as doxazosin - pantoprazole DR (PROTONIX) 40 mg tablet Take 1 tablet by mouth every morning. - Insulin [place], Disposable, (BD ULTRA-FINE GOLDY PEN NEEDLE) 32 gauge x Use one needle for each dose. once/day. - atorvastatin (LIPITOR) 40 mg tablet Take 1 tablet by mouth daily at bedtime. - bumetanide (BUMEX) 2 mg tablet Take 1 tablet by mouth every morning. - loratadine (CLARITIN) 10 mg tablet Take 1 tablet by mouth once daily. - sevelamer carbonate (RENVELA) 800 mg tablet Take 800 mg by mouth three times daily with meals. - B Complex-Vitamin C-Folic Acid (NEPHRO-SAVANAH) 0.8 mg tab Take 1 tablet by mouth every morning. - melatonin 5 mg tablet Take 10 mg by mouth at bedtime as needed for for insomnia. - acetaminophen (TYLENOL EX STR RAPID RELEASE ORAL) Take 1-2 capsules by mouth every 6 hours as needed (pain). - latanoprost (XALATAN) 0.005 % ophthalmic solution Use 1 Drop in both eyes daily at bedtime. into affected eye(s). 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] 09/24/2017 Hypertension, essential [I10] 10/23/2017 Lower leg edema [R60.0] 01/22/2018 12/02/2021 Chronic left hip pain [M25.552, G89.29] 03/04/2018 10/30/2022 Anemia of chronic renal failure, stage 3 (moder*03/05/2018 12/02/2021 Acute on chronic diastolic congestive heart zane*07/14/2018 Recurrent right pleural effusion [J90] 07/14/2018 12/02/2021 PVD (peripheral vascular disease) (HCC) [I73.9] 07/16/2018 Altered mental status [R41.82] 03/24/2019 07/05/2019 UTI (urinary tract infection) [N39.0] 03/24/2019 12/02/2021 Chronic combined systolic and diastolic CHF (co*03/24/2019 Hyperkalemia [E87.5] 03/24/2019 12/02/2021 Hypoxia [R09.02] 03/24/2019 12/02/2021 Hypoalbuminemia [E88.09] 03/24/2019 12/02/2021 GARRET (acute kidney injury) (HCC) [N17.9] 03/24/2019 12/02/2021 CKD (chronic kidney disease) stage 3, GFR 30-59*03/24/2019 04/18/2019 High phosphate levels [E83.39] 03/24/2019 12/02/2021 Hyponatremia [E87.1] 03/24/2019 12/02/2021 Delirium [R41.0] 03/29/2019 12/02/2021 Malnutrition of moderate degree (HCC) [E44.0] 04/01/2019 12/02/2021 Transition of care performed with sharing of cl*04/08/2019 04/18/2019 Chronic kidney disease, stage IV (severe) (HCC)*04/18/2019 12/02/2021 Ischemic cardiomyopathy [I25.5] 04/18/2019 Sprain of ligament of cervical spine region [S1*04/18/2019 12/02/2021 History of coronary artery bypass graft [Z95.1] 04/18/2019 History of ventricular tachycardia [Z86.79] 04/18/2019 Proliferative retinopathy of both eyes associat*06/17/2019 Flaccid neuropathic bladder, not elsewhere clas*06/04/2020 12/02/2021 Encounter for support and coordination of trans*10/06/2020 12/02/2021 Osteopenia, senile [M85.80] 10/06/2020 Other fracture of right femur, initial encounte*04/23/2022 UGIB (upper gastrointestinal bleed) [K92.2] 04/30/2022 10/30/2022 Blood loss anemia [D50.0] 04/30/2022 JOHNY (obstructive sleep apnea) [G47.33] 04/30/2022 Thoracic compression fracture, closed, initial *05/07/2022 ESRD (end stage renal disease) on dialysis (HCC*06/05/2022 Fracture, femur, supracondylar, right, open typ*05 (more content not included)... Normal [facility] Abdomen/Pelvis without Conto n 12-29-2024 Abdomen/Pelvis without Cont [facility] Imaging Services [address] [place] [id number] Abdomen/Pelvis without Cont MR#: [id number] Acct: [id number] Name: MAURI QUINONES Rep #: [id number] : 1955 M 69 From: Trino miguel MD PCP: Dr. Rigoberto Gould MD Status: REG ER Study: Abdomen/Pelvis without Cont Date of Exam: 01/18 Exam# [id number] Ordering Dr: Ra Aaron DO PROCEDURE: ABDOMEN/PELVIS WITHOUT CONT 12/29/2024 REASON FOR EXAM: NO URINARY OUTPUT TECHNIQUE: Abdomen and pelvis CT without intravenous contrast. Noncontrast technique limits evaluation of the abdominal and pelvic viscera. Coronal and Sagittal reconstruction series were provided. One or more dose reduction techniques were used (e.g., Automated exposure control, adjustment of the mA and/or kV according to patient size, use of iterative reconstruction technique). PATIENT PREPARATION: Per protocol ORAL CONTRAST TYPE: None. AMOUNT: mL COMPARISON: CT abdomen and pelvis 09/23/2020 FINDINGS: Lung bases: Moderate right and trace left pleural effusions with atelectasis. Bilateral interstitial thickening. Scattered ground-glass opacities, most prominent in the right middle lobe. Moderate cardiomegaly. Severe coronary artery calcifications. Dense mitral annular calcifications. Bilateral gynecomastia. Liver: Normal size. No obvious mass. Gallbladder: Nonspecific circumferential wall thickening, likely secondary to pericholecystic fluid. Tiny layering cholelithiasis. Spleen: Splenomegaly, craniocaudal length 14.1 cm. No focal lesion. Pancreas: Normal size. No surrounding inflammation. Adrenals: Unremarkable. Kidneys: No urolithiasis. No hydronephrosis. Bladder: Circumferential urinary bladder wall thickening. Reproductive Organs: No pelvic mass. Bowel: Stomach is unremarkable. No bowel dilation or wall thickening. Colonic diverticulosis without diverticulitis. Large amount of colonic stool. Appendix: The appendix is not identified. There is no inflammatory process identified in the right lower quadrant to suggest appendicitis. Lymph nodes: No suspicious lymph node enlargement. Vasculature: Severe diffuse atherosclerotic calcifications are noted. Peritoneum / Retroperitoneum: Moderate ascites. Bones: Degenerative changes of the spine. Diffuse subcutaneous edema. CT/Abdomen/Pelvis without Cont IMPRESSION: Moderate ascites. Colonic diverticulosis without diverticulitis. Other findings as described above. Reading Location: [facility] CC: Dr. Ra Aaron DO; Dr. Rigoberto Gould MD Crts: Signed Normal [facility] Absolute lymphocyte countOrd ered By: Ra Aaron on 12-29-2024 Lymphocytes Auto (Unsp spec) [#/Vol] 0.80 10*3/uL Low 0.83-4.51 [facility] Anion gap in Serum or Plasma Ordered By: Ra Aaron on 12-29-2024 Anion gap [Moles/Vol] 15 mmol/L 5-15 [facility] Automated lymphocyte count a s percentage of total leukocytesOrdered By: Ra Aaron on 12-29-2024 Lymphocytes/100 WBC Auto (Unsp spec) 15.3 % Low 19-41 [facility] BUN/creatinine ratioOrdered By: Ra Aaron on 12-29-2024 Urea nitrogen/Creatinine [Mass ratio] 14.5 mg/mg - [facility] Basic Metabolic Profile (BMP )on 12-29-2024 BUN/CRE 14.5 RATIO Normal - [facility] Comment on above: Performed By: #### L 501.080 #### [facility] [address] [place], [address] Calcium [Mass/Vol] 10.2 mg/dL Normal 7.6-11.0 [facility] Comment on above: Performed By: #### L 501.080 #### [facility] [address] [place], [address] Chloride [Moles/Vol] 89 mmol/L Low 98-108 [facility] Comment on above: Performed By: #### L 501.080 #### [facility] [address] [place], [address] CO2 [Moles/Vol] 26.0 mmol/L Normal 21.0-32.0 [facility] Comment on above: Performed By: #### L 501.080 #### [facility] [address] [place], [address] Creatinine [Mass/Vol] 5.00 mg/dL High 0.70-1.20 [facility] Comment on above: Performed By: #### L 501.080 #### [facility] [address] [place], [address] ECRCL 14.80 ml/min Low 50-250 [facility] Comment on above: Performed By: #### L 501.080 #### [facility] [address] [place], [address] GAP 15 Normal 5-15 [facility] Comment on above: Performed By: #### L 501.080 #### [facility] [address] [place], [address] GFR/1.73 sq M.predicted among non-blacks MDRD (S/P/Bld) [Vol rate/Area] 12 mL/min/{1.73_m2} Low >60 [facility] Comment on above: Result Comment: mL/m in/1.73m2 CKD-EPI Creatinine Equation (2020) Performed By: #### L 501.080 #### [facility] [address] [place], [address] Glucose [Mass/Vol] 156 mg/dL High 70-99 [facility] Comment on above: Performed By: #### L 501.080 #### [facility] [address] [place], [address] Potassium [Moles/Vol] 3.9 mmol/L Normal 3.3-5.1 [facility] Comment on above: Performed By: #### L 501.080 #### [facility] [address] [place], [address] Sodium [Moles/Vol] 130 mmol/L Low 133-145 [facility] Comment on above: Performed By: #### L [id number] #### [facility] [address] [place], [address] Urea nitrogen [Mass/Vol] 73 mg/dL High 4-19 [facility] Comment on above: Performed By: #### L 501.080 #### [facility] [address] [place], [address] Basophil percentageOrdered B y: Ra Aaron on 12-29-2024 Basophils/100 WBC (Bld) 1.0 % 0-1 [facility] CBC W/Diff, Automatedon Absolute Lymph 0.80 X10 3/uL Low 0.83-4.51 [facility] Comment on above: Performed By: #### L 501.080 #### [facility] [address] [place], [address] Absolute Neut 3.7 X10 3/uL Normal 2.0-7.7 [facility] Comment on above: Performed By: #### L [id number] #### [facility] [address] [place], [address] Basophils/100 WBC (Bld) 1.0 % Normal 0-1 [facility] Comment on above: Performed By: #### L 501.080 #### [facility] [address] [place], [address] Eosinophils/100 WBC (Bld) 2.5 % Normal 0-5 [facility] Comment on above: Performed By: #### L 501.080 #### [facility] [address] [place], [address] Erythrocyte distribution width (RBC) [Ratio] 16.4 % High 11.6-14.6 [facility] Comment on above: Performed By: #### L 501.080 #### [facility] [address] [place], [address] Hematocrit (Bld) [Volume fraction] 37.2 % Low 40-54 [facility] Comment on above: Performed By: #### L 501.080 #### [facility] [address] [place], [address] Hemoglobin (Bld) [Mass/Vol] 12.4 g/dL Low 13.0-16.5 [facility] Comment on above: Performed By: #### L 501.080 #### [facility] [address] [place], [address] IG% 0.200 Normal 0.0-0.9 [facility] Comment on above: Result Comment: IG% - Immature Granulocytes (promyelocytes, myelocytes and metamyelocytes) > 1% indicates that a LEFT SHIFT is Present. Performed By: #### L 501.080 #### [facility] [address] [place], [address] Lymphocytes/100 WBC (Bld) 15.3 % Low 19-41 [facility] Comment on above: Performed By: #### L 501.080 #### [facility] [address] [place], [address] MCH (RBC) [Entitic mass] 32.1 pg High 27.0-32.0 [facility] Comment on above: Performed By: #### L 501.080 #### [facility] [address] [place], [address] MCHC (RBC) [Mass/Vol] 33.3 g/dL Normal 32-36 [facility] Comment on above: Performed By: #### L 501.080 #### [facility] [address] [place], [address] MCV (RBC) [Entitic vol] 96.4 fL High 80-94 [facility] Comment on above: Performed By: #### L 501.080 #### [facility] [address] [place], [address] Monocytes/100 WBC (Bld) 10.5 % High 0-10 [facility] Comment on above: Performed By: #### L 501.080 #### [facility] [address] [place], [address] Neutrophils/100 WBC (Bld) 70.5 % High 47-70 [facility] Comment on above: Performed By: #### L 501.080 #### [facility] [address] [place], [address] Nucleated RBC (Bld) [#/Vol] 0 10*3/uL Normal 0-5 [facility] Comment on above: Performed By: #### L 501.080 #### [facility] [address] [place], [address] Platelet mean volume (Bld) [Entitic vol] 10.0 fL Normal 6.2-12.0 [facility] Comment on above: Performed By: #### L 501.080 #### [facility] [address] [place], [address] Platelets (Bld) [#/Vol] 120 10*3/uL Low 150-450 [facility] Comment on above: Performed By: #### L 501.080 #### [facility] [address] [place], [address] RBC (Bld) [#/Vol] 3.86 10*6/uL Low 4.6-6.2 [facility] Comment on above: Performed By: #### L 501.080 #### [facility] [address] [place], [address] RDW SD 57.9 fl High 35.1-43.9 [facility] Comment on above: Performed By: #### L 501.080 #### [facility] [address] [place], [address] WBC (Bld) [#/Vol] 5.2 10*3/uL Normal 4.4-11.0 [facility] Comment on above: Performed By: #### L 501.080 #### [facility] [address] [place], [address] CNOVon 12-29-2024 CNOV Office Visit (FAMPWS ) -- MAURI QUINONES ([id number]) 1955 M Date Time Provider Department 12/29/24 2:40 PM RIGOBERTO GOULD During your visit today, we recorded the following information about you: Pulse Blood pressure Weight 72/minute 104/62 80.3 kg Rigoberto Gould MD 12/29/2024 3:18 PM Signed Patient presents with: ER F/U Hospital F/U HPI: Patient presents today for office visit for follow up. Was in [facility] ER on 12/22/24 had butler placed and 415 cc of urine drained. Has not seen urology yet because they didn't take his insurance. Was given rocephin in ER. Currently on cefdinir has 3 days left. States that has not urinated at all since left [facility] that day. He normally urinates daily. He said he is not uncomfortable like he was. No fever or chills. Also due for hospital followup. Is a dialysis patient. He said he talked the er provider out of keeping a butler in. They told him he would likely be back. MEDICATIONS: Current Outpatient Medications Medication Sig ELIQUIS 5 mg tab(s) Take 1 tablet by mouth. midodrine (PROAMITINE) 5 mg tablet Take 2 tablets by mouth. traZODone (DESYREL) 50 mg tablet Take 1 tablet by mouth daily at bedtime. ammonium lactate (LAC-HYDRIN) 12 % cream Apply to affected area as needed. LANTUS SOLOSTAR U-100 INSULIN 100 unit/mL (3 mL) Inject 10 Units subcutaneously daily at bedtime. hydrOXYzine HCl (ATARAX) 25 mg tablet Take 1 tablet by mouth every 6 hours as needed for itching/rash. Tadalafil (CIALIS) 20 mg tablet Take 1 tablet by mouth once daily as needed. Do not take at same time as doxazosin pantoprazole DR (PROTONIX) 40 mg tablet Take 1 tablet by mouth every morning. Insulin [place], Disposable, (BD ULTRA-FINE GOLDY PEN NEEDLE) 32 gauge x Use one needle for each dose. once/day. atorvastatin (LIPITOR) 40 mg tablet Take 1 tablet by mouth daily at bedtime. bumetanide (BUMEX) 2 mg tablet Take 1 tablet by mouth every morning. loratadine (CLARITIN) 10 mg tablet Take 1 tablet by mouth once daily. aspirin, enteric coated (ASPIRIN, ENTERIC COATED) 81 mg EC tablet Take 81 mg by mouth once daily. Pt to call and clarify if needs to stop (Patient not taking: Reported on 12/17/2024) sevelamer carbonate (RENVELA) 800 mg tablet Take 800 mg by mouth three times daily with meals. B Complex-Vitamin C-Folic Acid (NEPHRO-SAVANAH) 0.8 mg tab Take 1 tablet by mouth every morning. melatonin 5 mg tablet Take 10 mg by mouth at bedtime as needed for for insomnia. acetaminophen (TYLENOL EX STR RAPID RELEASE ORAL) Take 1-2 capsules by mouth every 6 hours as needed (pain). doxazosin (CARDURA) 4 mg tablet Take 0.5 tablets by mouth twice daily. latanoprost (XALATAN) 0.005 % ophthalmic solution Use 1 Drop in both eyes daily at bedtime. into affected eye(s). No current facility-administered medications for this visit. ALLERGIES: ALLERGIES Allergen Reactions Lyrica [Pregabalin] Swelling PAST MEDICAL HISTORY Diagnosis Date Acute on chronic diastolic congestive heart failure ([facility]) 07/14/2018 GARRET (acute kidney injury) 03/24/2019 GARRET (acute kidney injury) 03/24/2019 Ankylosing spondylitis ([facility]) CAD (coronary artery disease) Cellulitis Chronic combined systolic and diastolic CHF (congestive heart failure) ([facility]) 03/24/2019 CKD (chronic kidney disease) stage 3, GFR 30-59 ml/min ([facility]) 03/24/2019 Constipation Diabetes ([facility]) Gout High phosphate levels 03/24/2019 History of coronary artery bypass graft 04/18/2019 04/10/17 CARTY to LAD, SVG to PDA, SVG to OM Hx of fracture multiple bones Hyperkalemia 03/24/2019 Hypoalbuminemia 03/24/2019 Hyponatremia 03/24/2019 Hypoxia 03/24/2019 Ischemic cardiomyopathy 04/18/2019 Echocardiogram 01/10/19 Dr. Nunez: Dilated left ventricle, left ventricular ejection fraction 40%, mild to moderate systolic dysfunction, moderate concentric LVH, dilated left and right atria. Mild mitral valve thickening with papillary muscle dysfunction, mild mitral valve insufficiency, tricuspid valve insufficiency, aortic valve insufficiency, pulmonic valve insufficiency. Aortic valve calcifi NSTEMI (non-ST elevated myocardial infarction) ([facility]) 03/12/2017 [facility] admit Osteoarthritis Transition of care performed with sharing of clinical summary 04/08/2019 Admit [facility] 03/21/19-03/22/19 Discharge diagnoses chronic kidney disease with worsening creatinine, acute kidney injury Hypokalemia Toxic encephalopathy secondary to Flexeril overusage Type 2 diabetes Ischemic cardiomyopathy Coronary artery disease Ligamental cervical neck strain and acute Pulmonary hypertension Hypertension Pyuria Preadmit: to [facility] ED with slurred speech, lethargy. PAST SURGICAL HISTORY Procedure Laterality Date ARTHRP ACETBLR/PROX FEM PROSTC AGRFT/ALGRFT Right 2018 Dr Peguero CORONARY ARTERY BYPASS GRAFT 04/12/2017 x 3 FEMUR RIGHT OP SURGERY Right Repair of fracture with hard (more content not included)... Normal [facility] Carbon dioxide, total [Moles /volume] in Central venous bloodOrdered By: Ra Aaron on 12-29-2024 CO2 [Moles/Vol] 26.0 mmol/L 21.0-32.0 [facility] Chloride assayOrdered By: Toney Aaron on 12-29-2024 Chloride [Moles/Vol] 89 mmol/L Low 98-108 [facility] Emergency Department Summary on 12-29-2024 Emergency Department Summary [facility] Medical Records Department [address] [place] [address] Emergency Department Summary 12/29/24 MR#: [id number] Acct: [id number] Name: MAURI QUINONES Rep #: [id number] : 1955 69 From: Ra Aaron DO PCP: Dr. Rigoberto Gould MD Status:DEP ER Location: ED HPI History of Present Illness Chief Complaint: Complaint Informant: patient, spouse/S.O. and family Narrative Narrative: 69-year-old male presenting to the emergency room with lack of urinary output. Patient states he gets dialysis Sunday and Sunday. He sees Dr. Jackson for nephrology. He states that typically he will urinate 1 time per day unless at the dialysis day when he will not urinate to the following day. Family reports they were recently in the emergency room with urinary retention and had a Butler catheter placed but he did not want to go home with that so they removed it. He has been on cefdinir for UTI. He has not had a urination now for at least 4 to 5 days. He denies any suprapubic discomfort or pressure that he would expect with not being able to urinate. He notes hard bowel movements. He denies any flank pain. [facility] Medical History Persistent atrial fibrillation Paroxysmal atrial fibrillation C. difficile diarrhea Anemia History of GI bleed Pure hypercholesterolemia Ischemic cardiomyopathy Essential hypertension Renal insufficiency Ankylosing spondylitis CAD (coronary artery disease) Overweight (BMI 25.0-29.9) Leg edema Leg swelling Acute systolic heart failure Bradycardia Biliary pleural effusion HTN (hypertension) Ventricular tachyarrhythmia Atherosclerosis of [place] coronary artery of [place] heart without angina pectoris Pulmonary HTN Cardiomyopathy Valvular heart disease NSTEMI (non-ST elevated myocardial infarction) CHF (congestive heart failure) Abscess of right foot Diabetes mellitus with neuropathy Gout DM2 (diabetes mellitus, type 2) Home Medications ???Medication ???Instructions ???Recorded ???Last Taken ???Type latanoprost 0.005 % eye drops 1 drp EACH EYE QHS 06/03/18 History melatonin 5 mg tablet 10 mg PO HS PRN Sleep 08/02/20 History loratadine 10 mg capsule 10 mg PO DAILY PRN allergy symptom s 10/24/21 12/10/24 History handicap placcard #1 ea 07/07/22 Unknown Rx hydroxyzine HCl 25 mg tablet 25 mg PO Q6 PRN itch 10/28/2411/25 History tadalafil 20 mg tablet 20 mg PO DAILY PRN sexual activity 10/28/24 Unknown History atorvastatin 40 mg tablet 40 mg PO DAILY 12/11/24 12/21/24 H istory benzonatate 100 mg capsule 100 mg PO TID PRN cough 12/11/24 0 12/22/24 History pantoprazole 40 mg tablet,delayed 40 mg PO BID 12/11/24 12/22/24 Hi story release trazodone 50 mg tablet 50 mg PO QHS 12/11/24 12/21/24 His tory vitamin B complex-vitamin C-folic 1 tab PO DAILY 12/11/24 12/22/24 History acid 0.8 mg tablet (Dialyvite 800) bumetanide 2 mg tablet 2 mg PO UD FLUID #90 tabs 12/13/24 12/22/24 Rx cefdinir 300 mg capsule 300 mg PO BID #14 caps 12/22/24 Un known Rx apixaban 5 mg tablet (Eliquis) 5 mg PO BID #180 tabs 12/26/24 Unk nown Rx midodrine 5 mg tablet 5 mg PO TID #270 tabs 12/26/24 Unk nown Rx carvedilol 12.5 mg tablet 12.5 mg PO BID 12/29/24 Unknown Hi story insulin glargine 100 unit/mL (3 unit subcut 12/29/24 Unknown Histo ry mL) subcutaneous pen (Lantus Solostar U-100 Insulin) metolazone 5 mg tablet 5 mg PO DAILY 12/29/24 Unknown His tory Allergy/AdvReac Type Severity Reaction Status Date / Time pregabalin (From Lyrica) Allergy Angioedema Verified 12/29/24 15:14 Family History Father CAD (coronary artery disease) Mother CAD (coronary artery disease) Surgical History History of cataract extraction hx femur surgery Hx of arthroscopy History of open reduction and internal fixation (ORIF) procedure Hx of CABG ( 04/12/17) Social History household members: spouse Smoking Status: Former smoker alcohol intake: never substance use type: does not use caffeine: No what type of physical activity do you participate in: none seatbelt use: always do you feel safe at home: Yes ROS ROS ED Constitutional Constitutional ED: Denies chills, fever(s) or weight loss Eyes Eyes: Denies change in vision or diplopia ENT ENT ED: Denies ear pain, rhinorrhea or sore throat Cardiovascular Cardiovascular: Denies chest pain, orthopnea, palpitations or racing heartbeat Respiratory/Chest Respiratory/Chest: Denies cough, dyspnea or orthopnea Gastrointestinal Gastrointestinal: Denies abdominal pain, diarrhea, (more content not included)... Normal [facility] Eosinophil percentageOrdered By: Ra Aaron on 12-29-2024 Eosinophils/100 WBC (Bld) 2.5 % 0-5 [facility] Erythrocyte distribution wid th ratioOrdered By: Ra Aaron on 12-29-2024 Erythrocyte distribution width (RBC) [Ratio] 16.4 % High 11.6-14.6 [facility] Erythrocyte distribution wid th standard deviationOrdered By: Ra Aaron on 12-29-2024 Erythrocyte distribution width (RBC) [Ratio] 57.9 fl High 35.1-43.9 [facility] Glomerular filtration rate ( GFR) estimation/1.73 sq m using serum, plasma, or whole bOrdered By: Ra Aaron on 12-29-2024 GFR/1.73 sq M.predicted among non-blacks MDRD (S/P/Bld) [Vol rate/Area] 12 mL/min/{1.73_m2} Low >60 [facility] Hematocrit Auto (Bld) [Volum e fraction]Ordered By: Ra Aaron on 12-29-2024 Hematocrit (Bld) [Volume fraction] 37.2 % Low 40-54 [facility] Hemoglobin measurementOrdere d By: Ra Aaron on 12-29-2024 Hemoglobin (Bld) [Mass/Vol] 12.4 g/dL Low 13.0-16.5 [facility] Immature granulocytes/100 WB C Auto (Bld)Ordered By: Ra Aaron on 12-29-2024 Immature granulocytes/100 WBC (Bld) 0.200 % 0.0-0.9 [facility] MCV (mean corpuscular volume ) determinationOrdered By: Ra Aaron on 12-29-2024 MCV (RBC) [Entitic vol] 96.4 fL High 80-94 [facility] Mean corpuscular hemoglobin (MCH) determinationOrdered By: Ra Aaron on 12-29-2024 MCH (RBC) [Entitic mass] 32.1 pg High 27.0-32.0 [facility] Monocyte percentageOrdered B y: Ra Aaron on 12-29-2024 Monocytes/100 WBC (Bld) 10.5 % High 0-10 [facility] Neutrophil percentageOrdered By: Ra Aaron on 12-29-2024 Neutrophils/100 WBC (Bld) 70.5 % High 47-70 [facility] Platelet countOrdered By: Toney Aaron on 12-29-2024 Platelets (Bld) [#/Vol] 120 10*3/uL Low 150-450 [facility] Potassium measurement (mass/ volume)Ordered By: Ra Aaron on 12-29-2024 Potassium (Unsp spec) [Mass/Vol] 3.9 mmol/L 3.3-5.1 [facility] RBC Auto (Bld) [#/Vol]Ordere d By: Ra Aaron on 12-29-2024 RBC (Bld) [#/Vol] 3.86 10*6/uL Low 4.6-6.2 [facility] Serum creatinine measurement (mass/volume)Ordered By: Ra Aaron on 12-29-2024 Creatinine [Mass/Vol] 5.00 mg/dL High 0.70-1.20 [facility] Serum glucose measurement (m ass/volume)Ordered By: Ra Aaron on 12-29-2024 Glucose [Mass/Vol] 156 mg/dL High 70-99 [facility] Serum or plasma calcium sneha urement (mass/volume)Ordered By: Ra Aaron on 12-29-2024 Calcium [Mass/Vol] 10.2 mg/dL 7.6-11.0 [facility] Serum or plasma urea nitroge n measurement (mass/volume)Ordered By: Ra Aaron on 12-29-2024 Urea nitrogen [Mass/Vol] 73 mg/dL High 4-19 [facility] Sodium levelOrdered By: Aniket Aaron on 12-29-2024 Sodium [Moles/Vol] 130 mmol/L Low 133-145 [facility] Urinalysis, Completeon 12-29 BACTERIA Normal None Seen [facility] Comment on above: Order Comment: ERAN HUANG TO SPECIFY Result Comment: NO U RINE COLLECTED. PATIENT DEPARTED ED. Performed By: #### L 400.0001 #### [facility] [address] [place], [place], [id number] BILIRUBIN URINE Normal Negative [facility] Comment on above: Order Comment: COLLE CTOR TO SPECIFY Result Comment: NO U RINE COLLECTED. PATIENT DEPARTED ED. Performed By: #### L 400.0001 #### [facility] [address] [place], [address] Clarity (U) Normal Clear [facility] Comment on above: Order Comment: COLLE CTOR TO SPECIFY Result Comment: NO U RINE COLLECTED. PATIENT DEPARTED ED. Performed By: #### L 400.0001 #### [facility] [address] [place], [address] Color (U) Normal Yellow [facility] Comment on above: Order Comment: COLLE CTOR TO SPECIFY Result Comment: NO U RINE COLLECTED. PATIENT DEPARTED ED. Performed By: #### L 400.0001 #### [facility] [address] [place], [address] EPI,SQUAMOUS Normal 0-5 [facility] Comment on above: Order Comment: COLLE CTOR TO SPECIFY Result Comment: NO U RINE COLLECTED. PATIENT DEPARTED ED. Performed By: #### L 400.0001 #### [facility] [address] [place], [address] GLUCOSE, UR Normal Normal [facility] Comment on above: Order Comment: [facility] CTOR TO SPECIFY Result Comment: NO U RINE COLLECTED. PATIENT DEPARTED ED. Performed By: #### L 400.0001 #### [facility] [address] [place], [address] KETONE UR Normal Negative [facility] Comment on above: Order Comment: [facility] CTOR TO SPECIFY Result Comment: NO U RINE COLLECTED. PATIENT DEPARTED ED. Performed By: #### L 400.0001 #### [facility] [address] [place], [address] LEUK ESTERASE Normal Negative [facility] Comment on above: Order Comment: COLLE CTOR TO SPECIFY Result Comment: NO U RINE COLLECTED. PATIENT DEPARTED ED. Performed By: #### L 400.0001 #### [facility] [address] [place], [address] Mucus Ql (Urine sed) Normal [facility] Comment on above: Order Comment: COLLE CTOR TO SPECIFY Result Comment: NO U RINE COLLECTED. PATIENT DEPARTED ED. Performed By: #### L 400.0001 #### [facility] [address] [place], [address] Nitrite Ql (U) Normal Negative [facility] Comment on above: Order Comment: COLLE CTOR TO SPECIFY Result Comment: NO U RINE COLLECTED. PATIENT DEPARTED ED. Performed By: #### L 400.0001 #### [facility] [address] [place], [address] OCCULT BLOOD-UR Normal Negative [facility] Comment on above: Order Comment: COLLE CTOR TO SPECIFY Result Comment: NO U RINE COLLECTED. PATIENT DEPARTED ED. Performed By: #### L 400.0001 #### [facility] [address] [place], [address] pH UR Normal 5.0 - 8.0 [facility] Comment on above: Order Comment: COLLE CTOR TO SPECIFY Result Comment: NO U RINE COLLECTED. PATIENT DEPARTED ED. Performed By: #### L 400.0001 #### [facility] [address] [place], [address] PROT DIPSTX Normal Negative [facility] Comment on above: Order Comment: COLLE CTOR TO SPECIFY Result Comment: NO U RINE COLLECTED. PATIENT DEPARTED ED. Performed By: #### L 400.0001 #### [facility] [address] [place], [address] RBC Normal 0-5 [facility] Comment on above: Order Comment: ERAN CTOR TO SPECIFY Result Comment: NO U RINE COLLECTED. PATIENT DEPARTED ED. Performed By: #### L 400.0001 #### [facility] [address] [place], [address] SP.GR. DIPSTX Normal 1.002-1.030 [facility] Comment on above: Order Comment: COLLE CTOR TO SPECIFY Result Comment: NO U RINE COLLECTED. PATIENT DEPARTED ED. Performed By: #### L 400.0001 #### [facility] [address] [place], [address] UR Preservative Normal [facility] Comment on above: Order Comment: COLLE CTOR TO SPECIFY Result Comment: NO U RINE COLLECTED. PATIENT DEPARTED ED. Performed By: #### L 400.0001 #### [facility] [address] [place], [address] UROBILI Normal Normal [facility] Comment on above: Order Comment: COLLE CTOR TO SPECIFY Result Comment: NO U RINE COLLECTED. PATIENT DEPARTED ED. Performed By: #### L 400.0001 #### [facility] [address] [facility] [address] WBC Normal 0-5 [facility] Comment on above: Order Comment: COLLE CTOR TO SPECIFY Result Comment: NO U RINE COLLECTED. PATIENT DEPARTED ED. Performed By: #### L 400.0001 #### [facility] [address] [place], [address] White blood cell (WBC) count Ordered By: Ra Aaron on 12-29-2024 WBC (Bld) [#/Vol] 5.2 10*3/uL 4.4-11.0 [facility] Urine Cultureon 12-25-2024 [facility] Butler cath urine is not recommended. Growth may represent distal urethral douglas. Coag Negative Staph [place] Count <1000 Normal [facility] Comment on above: Performed By: #### M 100.2200 ####[facility] [address] [place], [address] Urine Cultureon 12-23-2024 [facility] Culture exhibits no growth. Normal [facility] Comment on above: Performed By: #### M 100.2200 ####[facility] [address] [place], [place], [id number] Absolute lymphocyte countOrd ered By: Shira Wood on 12-22-2024 Lymphocytes Auto (Unsp spec) [#/Vol] 0.83 10*3/uL 0.83-4.51 [facility] Anion gap in Serum or Plasma Ordered By: Shira Wood on 12-22-2024 Anion gap [Moles/Vol] 17 mmol/L High 5-15 [facility] Automated blood erythrocyte countOrdered By: Shira Wood on 12-22-2024 RBC (Bld) [#/Vol] 3.93 10*6/uL Low 4.6-6.2 [facility] Comment on above: Performed By: #### L 501.080 #### [facility] [address] [place], [place], [id number] Automated blood hematocrit ( percentage)Ordered By: Shira Wood on 12-22-2024 Hematocrit (Bld) [Volume fraction] 38.3 % Low 40-54 [facility] Comment on above: Performed By: #### L 501.080 #### [facility] [address] [place], [place], [address] Automated lymphocyte count a s percentage of total leukocytesOrdered By: Shira Wood on 12-22-2024 Lymphocytes/100 WBC Auto (Unsp spec) 13.9 % Low 19-41 [facility] BUN/creatinine ratioOrdered By: Shira Wood on 12-22-2024 Urea nitrogen/Creatinine [Mass ratio] 12.2 mg/mg 10- [facility] Basic Metabolic Profile (BMP )on 12-22-2024 BUN/CRE 12.2 RATIO Normal - [facility] Comment on above: Performed By: #### L 501.080 #### [facility] [address] [place], [address] GAP 17 High - [facility] Comment on above: Performed By: #### L 501.080 #### [facility] [address] [place], [address] Potassium [Moles/Vol] 4.1 mmol/L Normal 3.3-5.1 [facility] Comment on above: Performed By: #### L 501.080 #### [facility] [address] [place], [address] Basophil percentageOrdered B y: Shira Wood on 12-22-2024 Basophils/100 WBC (Bld) 0.3 % Normal 0-1 [facility] Comment on above: Performed By: #### L 501.080 #### [facility] [address] [place], [address] Bilirubin Test strip Ql (U)O rdered By: Shira Wood on 12-22-2024 Bilirubin Ql (U) 1 mg/dL High Negative [facility] CBC W/Diff, Automatedon 11-26 Absolute Lymph 0.83 X10 3/uL Normal 0.83-4.51 [facility] Comment on above: Performed By: #### L 501.080 #### [facility] [address] [place], [address] Absolute Neut 4.2 X10 3/uL Normal 2.0-7.7 [facility] Comment on above: Performed By: #### L 501.080 #### [facility] [address] [place], [address] IG% 0.300 Normal 0.0-0.9 [facility] Comment on above: Result Comment: IG% - Immature Granulocytes (promyelocytes, myelocytes and metamyelocytes) > 1% indicates that a LEFT SHIFT is Present. Performed By: #### L 501.080 #### [facility] [address] [place], [address] Lymphocytes/100 WBC (Bld) 13.9 % Low 19-41 [facility] Comment on above: Performed By: #### L 501.080 #### [facility] [address] [place], [address] MCHC (RBC) [Mass/Vol] 32.4 g/dL Normal 32-36 [facility] Comment on above: Performed By: #### L 501.080 #### [facility] [address] [place], [address] Nucleated RBC (Bld) [#/Vol] 0 10*3/uL Normal 0-5 [facility] Comment on above: Performed By: #### L 501.080 #### [facility] [address] [place], [address] Platelet mean volume (Bld) [Entitic vol] 9.9 fL Normal 6.2-12.0 [facility] Comment on above: Performed By: #### L 501.080 #### [facility] [address] [place], [address] RDW SD 59.9 fl High 35.1-43.9 [facility] Comment on above: Performed By: #### L 501.080 #### [facility] [address] [place], [address] Carbon dioxide, total [Moles /volume] in Central venous bloodOrdered By: Shira Wood on 12-22-2024 CO2 [Moles/Vol] 26.0 mmol/L Normal 21.0-32.0 [facility] Comment on above: Performed By: #### L 501.080 #### [facility] [address] [place], [address] Chloride assayOrdered By: Nancy Wood on 12-22-2024 Chloride [Moles/Vol] 90 mmol/L Low 98-108 [facility] Comment on above: Performed By: #### L 501.080 #### [facility] [address] [place], [address] Emergency Department Summary on 12-22-2024 Emergency Department Summary [facility] Medical Records Department [address] [place] [address] Emergency Department Summary 12/22/24 MR#: [id number] Acct: [id number] Name: MAURI QUINONES Rep #: [id number] : [id number] From: Shira GAGNON PCP: Dr. Rigoberto Gould MD Status:DEP ER Location: ED Patient was seen and examined with physician assistant editor Aleshia All components of the history and physical confirmed and agreed. History of present illness and physical exam: Patient is a 69-year-old male past medical history of anemia, paroxysmal atrial fibrillation, CAD, ankylosing spondylitis, hypertension, CHF, type 2 diabetes who presents to the emergency department with a chief complaint of unable to urinate for the last 4 days. Patient states that this has happened before and notes that he had a catheter placed and removed and after that he was able to urinate. Patient states that he goes to dialysis on Sunday, , Sunday. He states that his last dialyzed on Sunday. He states that he still does make urine. He denies any fevers, chills, trauma to the back and states that has been having normal bowel movements. Review of systems: Agree with above Physical exam: Agree with above will add to the neuroexam no saddle anesthesia noted sensation grossly intact MDM Patient is a 69-year-old male who presented to the emergency department with a chief complaint of urinary tension of the last 4 days. On the differential diagnose includes but limited to BPH, UTI. Once workup is obtained reviewed he will be reevaluated. Patient was bladder scanned and had about 415 cc of urine in his bladder Ubtler catheter was placed. Patient CBC was reviewed showed no evidence leukocytosis white blood count was 6, hemoglobin is 12, platelet count was noted to be 100. Patient sodium 133, potassium normal 4.1, creatinine was 1.5.57 he is on dialysis, urinalysis reviewed and showed 100 leukocyte esterase positive nitrates greater than 100 red blood cells with 10-25 white cells noted. He has 3+ bacteria. This was sent for culture he was given Rocephin here in the emergency department. We went back into reevaluate the patient and he states that he is not going home with a Butler catheter in place he states that he wants this removed and we recommended that he keeps his send as he has a urinary tract infection that is likely leading to his urinary retention. We stressed the importance that he needs this into drain the bladder and allow the antibiotics to continue to work therefore he can follow-up with urology and they could remove it at that point in time. However after this discussion he is adamant he is not going home with this Butler catheter was removed and he verbalized that with this removed that he could clinically deteriorate especially if he continues to retain urine which could ultimately to his he verbalized understanding of this. Patient was encouraged to return with worsening symptoms and concerns otherwise he follow-up with his primary care physician outpatient setting he was advised to go to dialysis tomorrow. He is agreeable to plan all question concerns answered is discharged home in stable condition. Patient given prescription for cefdinir. Plan: Final impression: Urinary tract infection Urinary retention Disposition: Patient will be discharged home in stable condition Supervising attending attestation: Nicho CHANCE History of Present Illness Chief Complaint: Complaint Narrative Narrative: Patient presenting today with urinary retention he has had over the last 4 days. He has a history of CKD on dialysis, he goes Tuesdays, , and Saturdays. He last was dialyzed on Sunday. He reports he usually urinates twice a day but has been unable to. He reports that this has happened in the past, he was straight cathed and was then able to urinate after that. He reports that he does not want a Butler catheter. He denies fevers, chills, abdominal pain, nausea, flank pain, and vomiting. [facility] Medical History Paroxysmal atrial fibrillation C. difficile diarrhea Anemia History of GI bleed Pure hypercholesterolemia Ischemic cardiomyopathy Essential hypertension Renal insufficiency Ankylosing spondylitis CAD (coronary artery disease) Overweight (BMI 25.0-29.9) Leg edema Leg swelling Acute systolic heart failure Bradycardia Biliary pleural effusion HTN (hypertension) Ventricular tachyarrhythmia Atherosclerosis of [place] coronary artery of [place] heart without angina pectoris Pulmonary HTN Cardiomyopathy Valvular heart disease NSTEMI (non-ST elevated myocardial infarction) CHF (congestive heart failure) Abscess of right foot Diabetes mellitus with neuropathy Gout DM2 (diabetes mellitus, type 2) Home (more content not included)... Normal [facility] Eosinophil percentageOrdered By: Shira Wood on 12-22-2024 Eosinophils/100 WBC (Bld) 2.2 % Normal 0-5 [facility] Comment on above: Performed By: #### L 501.080 #### [facility] [address] [place], [address] Erythrocyte distribution wid th ratioOrdered By: Shira Wood on 12-22-2024 Erythrocyte distribution width (RBC) [Ratio] 16.8 % High 11.6-14.6 [facility] Comment on above: Performed By: #### L 501.080 #### [facility] [address] [place], [address] Erythrocyte distribution wid th standard deviationOrdered By: Shira Wood on 12-22-2024 Erythrocyte distribution width (RBC) [Ratio] 59.9 fl High 35.1-43.9 [facility] Glomerular filtration rate ( GFR) estimation/1.73 sq m using serum, plasma, or whole bOrdered By: Shira Wood on 12-22-2024 GFR/1.73 sq M.predicted among non-blacks MDRD (S/P/Bld) [Vol rate/Area] 11 mL/min/{1.73_m2} Low >60 [facility] Comment on above: Result Comment: mL/m in/1.73m2 CKD-EPI Creatinine Equation (2020) Performed By: #### L 501.080 #### [facility] [address] [place], [address] Hemoglobin measurementOrdere d By: Shira Wood on 12-22-2024 Hemoglobin (Bld) [Mass/Vol] 12.4 g/dL Low 13.0-16.5 [facility] Comment on above: Performed By: #### L 501.080 #### [facility] [address] [place], [address] Immature granulocytes/100 WB C Auto (Bld)Ordered By: Shira Wood on 12-22-2024 Immature granulocytes/100 WBC (Bld) 0.300 % 0.0-0.9 [facility] Ketones Test strip Ql (U)Ord ered By: Shira Wood on 12-22-2024 Ketones Ql (U) 5 mg/dl High Negative [facility] MCV (mean corpuscular volume ) determinationOrdered By: Shira Wood on 12-22-2024 MCV (RBC) [Entitic vol] 97.5 fL High 80-94 [facility] Comment on above: Performed By: #### L 501.080 #### [facility] [address] [place], [address] Mean corpuscular hemoglobin (MCH) determinationOrdered By: Shira Wood on 12-22-2024 MCH (RBC) [Entitic mass] 31.6 pg Normal 27.0-32.0 [facility] Comment on above: Performed By: #### L 501.080 #### [facility] [address] [place], [address] Monocyte percentageOrdered B y: Shira Wood on 12-22-2024 Monocytes/100 WBC (Bld) 13.9 % High 0-10 [facility] Comment on above: Performed By: #### L 501.080 #### [facility] [address] [place], [address] Mucus LM Ql (Urine sed)Order ed By: Shira Wood on 12-22-2024 Mucus Ql (Urine sed) RARE /hpf [facility] Neutrophil percentageOrdered By: Shira Wood on 12-22-2024 Neutrophils/100 WBC (Bld) 69.4 % Normal 47-70 [facility] Comment on above: Performed By: #### L 501.080 #### [facility] [address] [place], [address] Nitrite Test strip Ql (U)Ord ered By: Shira Wood on 12-22-2024 Nitrite Ql (U) Positive High Negative [facility] Platelet countOrdered By: Nancy mckennattmyriam Wood on 12-22-2024 Platelets (Bld) [#/Vol] 100 10*3/uL Low 150-450 [facility] Comment on above: Performed By: #### L 501.080 #### [facility] [address] [place], [address] Potassium measurement (mass/ volume)Ordered By: Shira Wood on 12-22-2024 Potassium (Unsp spec) [Mass/Vol] 4.1 mmol/L 3.3-5.1 [facility] Protein Test strip Ql (U)Ord ered By: Shira Wood on 12-22-2024 Protein Ql (U) 100 mg/dl High Negative [facility] Serum creatinine measurement (mass/volume)Ordered By: Shira Wood on 12-22-2024 Creatinine [Mass/Vol] 5.57 mg/dL High 0.70-1.20 [facility] Comment on above: Performed By: #### L 501.080 #### [facility] [address] [place], [address] Serum glucose measurement (m ass/volume)Ordered By: Shira Wood on 12-22-2024 Glucose [Mass/Vol] 152 mg/dL High 70-99 [facility] Comment on above: Performed By: #### L 501.080 #### [facility] [address] [place], [address] Serum or plasma calcium sneha urement (mass/volume)Ordered By: Shira Wood on 12-22-2024 Calcium [Mass/Vol] 10.1 mg/dL Normal 7.6-11.0 [facility] Comment on above: Performed By: #### L 501.080 #### [facility] [address] [place], [address] Serum or plasma urea nitroge n measurement (mass/volume)Ordered By: Shira Wood on 12-22-2024 Urea nitrogen [Mass/Vol] 68 mg/dL High 4-19 [facility] Comment on above: Performed By: #### L 501.080 #### [facility] [address] [place], [address] Sodium levelOrdered By: Jadon Wood on 12-22-2024 Sodium [Moles/Vol] 133 mmol/L Normal 133-145 [facility] Comment on above: Performed By: #### L 501.080 #### [facility] [address] [facility] [address] Squamous epithelial cells de tection in urine sediment by light microscopyOrdered By: Shira Wood on 12-22-2024 Epithelial cells.squamous LM Ql (Urine sed) 0-5 SEEN /hpf 0-5 [facility] Urinalysis, Completeon 12-22 Mucus Ql (Urine sed) RARE Normal [facility] Comment on above: Order Comment: COLOR OF URINE MAY AFFECT DIPSTICK RESULTS.LIQUEFACTION SUPERVISOR TO SPECIFY Performed By: #### L 501.080 #### [facility] [address] [place], [address] BACTERIA 3+ /hpf Normal None Seen [facility] Comment on above: Order Comment: COLOR OF URINE MAY AFFECT DIPSTICK RESULTS.LIQUEFACTION SUPERVISOR TO SPECIFY Performed By: #### L 501.080 #### [facility] [address] [place], [address] EPI,SQUAMOUS 0-5 SEEN Normal 0-5 [facility] Comment on above: Order Comment: COLOR OF URINE MAY AFFECT DIPSTICK RESULTS.LIQUEFACTION SUPERVISOR TO SPECIFY Performed By: #### L 501.080 #### [facility] [address] [place], [address] RBC > 100 SEEN Normal 0-5 [facility] Comment on above: Order Comment: COLOR OF URINE MAY AFFECT DIPSTICK RESULTS.LIQUEFACTION SUPERVISOR TO SPECIFY Performed By: #### L 501.080 #### [facility] [address] [place], [place], [address] WBC 10-25 SEEN Normal 0-5 [facility] Comment on above: Order Comment: COLOR OF URINE MAY AFFECT DIPSTICK RESULTS.LIQUEFACTION SUPERVISOR TO SPECIFY Performed By: #### L 501.080 #### [facility] [address] [place], [place], [address] Urine clarityOrdered By: Luca Wood on 12-22-2024 Clarity (U) Cloudy Clear [facility] Urine color determinationOrd ered By: Shira Wood on 12-22-2024 Color (U) Brown Yellow [facility] Urine cultureOrdered By: Luca Wood on 12-22-2024 Bacteria identified Cx Nom (U) Negative Abnormal [facility] Urine cultureOrdered By: Siomara Nelson on 12-22-2024 Bacteria identified Cx Nom (U) Culture exhibits no growth. [facility] Urine glucose detectionOrder ed By: Shira Wood on 12-22-2024 Glucose Ql (U) Normal mg/dl Normal [facility] Urine leukocyte esterase det ection by dipstickOrdered By: Shira Wood on 12-22-2024 Leukocyte esterase Test strip Ql (U) 100 /ul High Negative [facility] Urine pHOrdered By: Ibrahima Wood on 12-22-2024 pH (U) 5.0 [pH] 5.0 - 8.0 [facility] Urine sediment bacteria coun t by microscopy (number/high power field)Ordered By: Shira Wood on 12-22-2024 Bacteria LM.HPF (Urine sed) [#/Area] 3 /[HPF] None Seen [facility] Urine specific gravity measu rementOrdered By: Shira Wood on 12-22-2024 Specific gravity (U) [Rel density] 1.020 1.002-1.030 [facility] Urine urobilinogen measureme ntOrdered By: Shira Wood on 12-22-2024 Urobilinogen Ql (U) Normal mg/dl Normal [facility] White blood cell (WBC) count Ordered By: Shira Wood on 12-22-2024 WBC (Bld) [#/Vol] 6.0 10*3/uL Normal 4.4-11.0 [facility] Comment on above: Performed By: #### L 501.080 #### [facility] [address] [place], [address] White blood cell countOrdere d By: Shira Wood on 12-22-2024 White blood cell count 10-25 SEEN /hpf 0-5 [facility] CNOVon 12-17-2024 CNOV Office Visit (ORMDNA ) -- QUINONESMAURI Miguel ([id number]) 1955 M [facility] Date Time Provider Department 12/17/24 2:30 PM NUPUR DE LA ROSA During your visit today, we recorded the following information about you: Nupur De La Rosa MD 01/14/2025 10:05 PM Signed REASON FOR VISIT / CHIEF COMPLAINT CHIEF COMPLAINT: Mauri Delcid Quinones is a 69 year old male who presents today for follow up office visit. Patient presents with: Right Leg - Follow Up, Pain: Bone scan results HISTORY OF PRESENT ILLNESS (HPI) PAIN EVALUATION 12/10/2024 1030 Pain Level: 3 Pain Location: Leg-Right Description: Sore Duration Amount of Time: -- ongoing Frequency: Intermittent Here for follow-up of his right hip pain. A bone scan was ordered after his last visit as well as a screening battery of lab test to rule out possibility of infection. He reports he continues to have pain in his right hip which has undergone arthroplasty in 2019 Any new injury, since being seen last: No Is there any overall improvement in your condition? No Does anything make it worse?: Yes, weightbearing Does anything make it better?: Yes, activity modification REVIEW OF SYMPTOMS: Integumentary: Any recent skin changes or rashes? No Neurologic: Any numbness or tingling in the LOCAL AREA? No Endocrine: Any diagnosis of diabetes? Yes Hematologic: Any recent bleeding episodes? No ALLERGIES ALLERGIES Allergen Reactions Lyrica [Pregabalin] Swelling PAST MEDICAL HISTORY PAST MEDICAL HISTORY Diagnosis Date Ankylosing spondylitis ([facility]) CAD (coronary artery disease) Cellulitis Chronic combined systolic and diastolic CHF (congestive heart failure) ([facility]) 03/24/2019 CKD (chronic kidney disease) stage 3, GFR 30-59 ml/min ([facility]) 03/24/2019 Constipation Diabetes ([facility]) ESRD (end stage renal disease) ([facility]) Gout History of coronary artery bypass graft 04/18/2019 04/10/17 CARTY to LAD, SVG to PDA, SVG to OM Hx of fracture multiple bones Ischemic cardiomyopathy 04/18/2019 Echocardiogram 01/10/19 Dr. Nunez: Dilated left ventricle, left ventricular ejection fraction 40%, mild to moderate systolic dysfunction, moderate concentric LVH, dilated left and right atria. Mild mitral valve thickening with papillary muscle dysfunction, mild mitral valve insufficiency, tricuspid valve insufficiency, aortic valve insufficiency, pulmonic valve insufficiency. Aortic valve calcifi NSTEMI (non-ST elevated myocardial infarction) ([facility]) 03/12/2017 [facility] admit Osteoarthritis PAST SURGICAL HISTORY Procedure Laterality Date ARTHRP ACETBLR/PROX FEM PROSTC AGRFT/ALGRFT Right 2019 Dr Peguero CORONARY ARTERY BYPASS GRAFT 04/12/2017 x 3 FEMUR RIGHT OP SURGERY Right Repair of fracture with hardward HIP SURGERY HX Right pin KNEE ARTHROSCOPY Left x2 KNEE SURGERY HX Right TKR, right, arthoscopy x3 PAST SURGICAL HISTORY OF 09/07/2017 08/15/17 fx radius in 2 places; plate and screws.Plate and screws 09/07/17 [facility] TOE SURGERY HX Right PHYSICAL EXAMINATION Vitals: There were no vitals taken for this visit. Body Habitus:no acute distress and alert and oriented Orientation: Normal: Oriented to person, place and time Psych: normal Sensation: sensation to light touch is grossly normal bilaterally Skin: Color, texture, turgor normal. No rashes or lesions Swelling: no swelling noted Stance: normal cervical posture, shoulder alignment, and no joint deformities or swelling noted Ortho Exam Unchanged from previous visit Right hip painful to passive range of motion Imaging : Bone scan-* Right hip periprosthetic uptake at the level of the greater trochanter on the delayed phase images, suggesting stress reaction. Follow-up evaluation, as clinically indicated. No abnormal three-phase increased uptake. CRP Date Value Ref Range Status 11/14/2024 1.8 (H) <0.9 mg/dL Final Sed Rate, Johnathonren Date Value Ref Range Status 11/14/2024 2 0 - 15 mm/hr Final Hemoglobin (g/dL) Date Value 01/14/2025 13.2 06/01/2020 9.8 Hematocrit (%) Date Value 01/14/2025 39.9 06/01/2020 31.1 WBC (k/uL) Date Value 01/14/2025 11.11 06/01/2020 7.03 Proceedures : None Assessment: Right hip pain without any objective signs of sepsis. It is possible were dealing with an aseptic loosening. Patient has had multiple surgeries on the right leg. Plain films show significant osteopenia raising concerns about whether or not a revision is even possible. Cultures from aspirate taken for are negative for growth however it did show an elevation in the white blood count 5,700. This point I would recommend continued conservative care. If symptoms persist, consideration for repeat aspirate will be given plan: 1. Continue current conservative care. 2. Nupur De La Rosa M.D. Department of Orthopaedic Surgery Cle (more content not included)... Normal [facility] Basic Metabolic Profile (BMP )on 12-14-2024 BUN Normal - [facility] Comment on above: Result Comment: Canc elled via OM: Order cancelled - Patient discharged Performed By: #### L 501.080 #### [facility] [address] [place], [address] BUN/CRE Normal - [facility] Comment on above: Result Comment: Canc elled via OM: Order cancelled - Patient discharged Performed By: #### L 501.080 #### [facility] [address] [place], [address] Calcium Normal 7.6-11.0 [facility] Comment on above: Result Comment: Canc elled via OM: Order cancelled - Patient discharged Performed By: #### L 501.080 #### [facility] [address] [place], [address] CL Normal 98-108 [facility] Comment on above: Result Comment: Canc elled via OM: Order cancelled - Patient discharged Performed By: #### L 501.080 #### [facility] [address] [place], [address] CO2 Normal 21.0-32.0 [facility] Comment on above: Result Comment: Canc elled via OM: Order cancelled - Patient discharged Performed By: #### L 501.080 #### [facility] [address] [place], [address] CREAT,SERUM Normal 0.70-1.20 [facility] Comment on above: Result Comment: Canc elled via OM: Order cancelled - Patient discharged Performed By: #### L 501.080 #### [facility] [address] [place], [address] eGFR Normal >60 [facility] Comment on above: Result Comment: Canc elled via OM: Order cancelled - Patient discharged Performed By: #### L 501.080 #### [facility] [address] [place], [address] GAP Normal 5-15 [facility] Comment on above: Result Comment: Canc elled via OM: Order cancelled - Patient discharged Performed By: #### L 501.080 #### [facility] [address] [place], [address] GLU Normal 70-99 [facility] Comment on above: Result Comment: Canc elled via OM: Order cancelled - Patient discharged Performed By: #### L 501.080 #### [facility] [address] [place], [address] Potassium Normal 3.3-5.1 [facility] Comment on above: Result Comment: Canc elled via OM: Order cancelled - Patient discharged Performed By: #### L 501.080 #### [facility] [address] [place], [address] Basic Metabolic Profile (BMP) Normal 133-145 [facility] Comment on above: Result Comment: Canc elled via OM: Order cancelled - Patient discharged Performed By: #### L 501.080 #### [facility] [address] [place], [address] CBC W/Diff, Automatedon 04-2 0-2024 Absolute Neut Normal 2.0-7.7 [facility] Comment on above: Result Comment: Canc elled via OM: Order cancelled - Patient discharged Performed By: #### L 501.080 #### [facility] [address] [place], [address] HCT Normal 40-54 [facility] Comment on above: Result Comment: Canc elled via OM: Order cancelled - Patient discharged Performed By: #### L 501.080 #### [facility] [address] [place], [address] HGB Normal 13.0-16.5 [facility] Comment on above: Result Comment: Canc elled via OM: Order cancelled - Patient discharged Performed By: #### L 501.080 #### [facility] [address] [place], [address] MCH Normal 27.0-32.0 [facility] Comment on above: Result Comment: Canc elled via OM: Order cancelled - Patient discharged Performed By: #### L 501.080 #### [facility] [address] [place], [address] MCHC Normal 32-36 [facility] Comment on above: Result Comment: Canc elled via OM: Order cancelled - Patient discharged Performed By: #### L 501.080 #### [facility] [address] [place], [address] MCV Normal 80-94 [facility] Comment on above: Result Comment: Canc elled via OM: Order cancelled - Patient discharged Performed By: #### L 501.080 #### [facility] [address] [place], [address] NEUT% Normal 47-70 [facility] Comment on above: Result Comment: Canc elled via OM: Order cancelled - Patient discharged Performed By: #### L 501.080 #### [facility] [address] [place], [address] PLT Normal 150-450 [facility] Comment on above: Result Comment: Canc elled via OM: Order cancelled - Patient discharged Performed By: #### L 501.080 #### [facility] [address] [place], [address] RBC Normal 4.6-6.2 [facility] Comment on above: Result Comment: Canc elled via OM: Order cancelled - Patient discharged Performed By: #### L 501.080 #### [facility] [address] [place], [address] RDW CV Normal 11.6-14.6 [facility] Comment on above: Result Comment: Canc elled via OM: Order cancelled - Patient discharged Performed By: #### L 501.080 #### [facility] [address] [place], [address] RDW SD Normal 35.1-43.9 [facility] Comment on above: Result Comment: Canc elled via OM: Order cancelled - Patient discharged Performed By: #### L 501.080 #### [facility] [address] [place], [address] WBC Normal 4.4-11.0 [facility] Comment on above: Result Comment: Canc elled via OM: Order cancelled - Patient discharged Performed By: #### L 501.080 #### [facility] [address] [place], [address] Absolute lymphocyte countOrd ered By: Sukumar Restrepo on 12-13-2024 Lymphocytes Auto (Unsp spec) [#/Vol] 0.80 10*3/uL Low 0.83-4.51 [facility] Absolute neutrophil countOrd ered By: Sukumar Restrepo on 12-13-2024 Neutrophils (Bld) [#/Vol] 5.4 10*3/uL 2.0-7.7 [facility] Anion gap in Serum or Plasma Ordered By: Sukumar Restrepo on 12-13-2024 Anion gap [Moles/Vol] 19 mmol/L High 5-15 [facility] Automated lymphocyte count a s percentage of total leukocytesOrdered By: Sukumar Restrepo on 12-13-2024 Lymphocytes/100 WBC Auto (Unsp spec) 10.5 % Low 19-41 [facility] BUN/creatinine ratioOrdered By: Sukumar Restrepo on 12-13-2024 Urea nitrogen/Creatinine [Mass ratio] 13.2 mg/mg 10- [facility] Basic Metabolic Profile (BMP )on 12-13-2024 BUN/CRE 13.2 RATIO Normal - [facility] Comment on above: Performed By: #### L 509.7001 #### [facility] [address] [place], [address] Calcium [Mass/Vol] 9.4 mg/dL Normal 7.6-11.0 [facility] Comment on above: Performed By: #### L [id number] #### [facility] [address] [place], [address] Chloride [Moles/Vol] 93 mmol/L Low 98-108 [facility] Comment on above: Performed By: #### L [id number] #### [facility] [address] [place], [address] CO2 [Moles/Vol] 21.9 mmol/L Normal 21.0-32.0 [facility] Comment on above: Performed By: #### L [id number] #### [facility] [address] [place], [address] Creatinine [Mass/Vol] 6.56 mg/dL High 0.70-1.20 [facility] Comment on above: Performed By: #### L [id number] #### [facility] [address] [place], [address] ECRCL 11.28 ml/min Low 50-250 [facility] Comment on above: Performed By: #### L [id number] #### [facility] [address] [place], [address] GAP 19 High 5-15 [facility] Comment on above: Performed By: #### L 509.1 #### [facility] [address] [place], [address] GFR/1.73 sq M.predicted among non-blacks MDRD (S/P/Bld) [Vol rate/Area] 9 mL/min/{1.73_m2} Low >60 [facility] Comment on above: Result Comment: mL/m in/1.73m2 CKD-EPI Creatinine Equation (2020) Performed By: #### L 509.700 #### [facility] [address] [place], [address] Glucose [Mass/Vol] 59 mg/dL Low 70-99 [facility] Comment on above: Performed By: #### L 509.7001 #### [facility] [address] [place], [address] Potassium [Moles/Vol] 4.4 mmol/L Normal 3.3-5.1 [facility] Comment on above: Performed By: #### L [id number] #### [facility] [address] [place], [address] Sodium [Moles/Vol] 134 mmol/L Normal 133-145 [facility] Comment on above: Performed By: #### L [id number] #### [facility] [address] [place], [address] Urea nitrogen [Mass/Vol] 87 mg/dL High 4-19 [facility] Comment on above: Performed By: #### L [id number] #### [facility] [address] [place], [address] Basophil percentageOrdered B y: Sukumar Lauro on 12-13-2024 Basophils/100 WBC (Bld) 0.5 % 0-1 [facility] Bedside Glucoseon 12-13-2024 FINGERSTICK GLU 77 mg/dL Normal 74-106 [facility] Comment on above: Result Comment: BONI GEMENT OF PATIENT CARE PER NURSING PROTOCOL Performed By: #### L [id number] #### [facility] [address] [place], [address] FINGERSTICK GLU 50 mg/dL Low 74-106 [facility] Comment on above: Result Comment: BONI GEMENT OF PATIENT CARE PER NURSING PROTOCOL Performed By: #### L [id number] #### [facility] [address] [place], [address] FINGERSTICK GLU 173 mg/dL High 74-106 [facility] Comment on above: Result Comment: BONI GEMENT OF PATIENT CARE PER NURSING PROTOCOL Performed By: #### L [id number] #### [facility] [address] [place], [address] FINGERSTICK GLU 83 mg/dL Normal 74-106 [facility] Comment on above: Result Comment: BONI GEMENT OF PATIENT CARE PER NURSING PROTOCOL Performed By: #### L [id number] #### [facility] [address] [place], [address] CBC W/Diff, Automatedon 11-25 Absolute Lymph 0.80 X10 3/uL Low 0.83-4.51 [facility] Comment on above: Performed By: #### L [id number] #### [facility] [address] [place], [address] Absolute Neut 5.4 X10 3/uL Normal 2.0-7.7 [facility] Comment on above: Performed By: #### L [id number] #### [facility] [address] [place], [address] Basophils/100 WBC (Bld) 0.5 % Normal 0-1 [facility] Comment on above: Performed By: #### L [id number] #### [facility] [address] [place], [address] Eosinophils/100 WBC (Bld) 2.1 % Normal 0-5 [facility] Comment on above: Performed By: #### L [id number] #### [facility] [address] [place], [address] Erythrocyte distribution width (RBC) [Ratio] 17.4 % High 11.6-14.6 [facility] Comment on above: Performed By: #### L 501.080 #### [facility] [address] [place], [address] Hematocrit (Bld) [Volume fraction] 36.6 % Low 40-54 [facility] Comment on above: Performed By: #### L [id number] #### [facility] [address] [place], [address] Hemoglobin (Bld) [Mass/Vol] 12.1 g/dL Low 13.0-16.5 [facility] Comment on above: Performed By: #### L 501.080 #### [facility] [address] [place], [address] IG% 0.300 Normal 0.0-0.9 [facility] Comment on above: Result Comment: IG% - Immature Granulocytes (promyelocytes, myelocytes and metamyelocytes) > 1% indicates that a LEFT SHIFT is Present. Performed By: #### L 501.080 #### [facility] [address] [place], [address] Lymphocytes/100 WBC (Bld) 10.5 % Low 19-41 [facility] Comment on above: Performed By: #### L 501.080 #### [facility] [address] [place], [address] MCH (RBC) [Entitic mass] 31.4 pg Normal 27.0-32.0 [facility] Comment on above: Performed By: #### L 501.080 #### [facility] [address] [place], [address] MCHC (RBC) [Mass/Vol] 33.1 g/dL Normal 32-36 [facility] Comment on above: Performed By: #### L 501.080 #### [facility] [address] [place], [address] MCV (RBC) [Entitic vol] 95.1 fL High 80-94 [facility] Comment on above: Performed By: #### L 501.080 #### [facility] [address] [place], [address] Monocytes/100 WBC (Bld) 15.1 % High 0-10 [facility] Comment on above: Performed By: #### L 501.080 #### [facility] [address] [place], [address] Neutrophils/100 WBC (Bld) 71.5 % High 47-70 [facility] Comment on above: Performed By: #### L 501.080 #### [facility] [address] [place], [address] Nucleated RBC (Bld) [#/Vol] 0 10*3/uL Normal 0-5 [facility] Comment on above: Performed By: #### L 501.080 #### [facility] [address] [place], [address] Platelet mean volume (Bld) [Entitic vol] 9.7 fL Normal 6.2-12.0 [facility] Comment on above: Performed By: #### L 501.080 #### [facility] [address] [place], [address] Platelets (Bld) [#/Vol] 146 10*3/uL Low 150-450 [facility] Comment on above: Performed By: #### L 501.080 #### [facility] [address] [place], [address] RBC (Bld) [#/Vol] 3.85 10*6/uL Low 4.6-6.2 [facility] Comment on above: Performed By: #### L 501.080 #### [facility] [address] [place], [address] RDW SD 58.9 fl High 35.1-43.9 [facility] Comment on above: Performed By: #### L 501.080 #### [facility] [address] [place], [address] WBC (Bld) [#/Vol] 7.6 10*3/uL Normal 4.4-11.0 [facility] Comment on above: Performed By: #### L 501.080 #### [facility] [address] [place], [address] Carbon dioxide, total [Moles /volume] in Central venous bloodOrdered By: Sukumar Restrepo on 12-13-2024 CO2 [Moles/Vol] 21.9 mmol/L 21.0-32.0 [facility] Chloride assayOrdered By: Dulce Restrepo on 12-13-2024 Chloride [Moles/Vol] 93 mmol/L Low 98-108 [facility] Discharge Instructionon 11-25 Discharge Instruction [facility] Medical Records Department [address] [place] [address] Instructions for Home/Discharge Instructions 12/13/24 0935 MR#: [id number] Acct: [id number] Name: MAURI QUINONES Rep #: [id number] : 1955 69 From: Sukumar Restrepo MD PCP: Dr. Rigoberto Gould MD Status:ADM IN Discharge Instructions Diet Discharge Diet: 8 Cup Fluid Restriction and Renal Diet DC O2, CPAP, BIPAP needs Home O2 Discharge instructions: No Dressing / Incision Discharge Activity: Return to Normal Activity Weight Bearing Status: Weight bearing as tolerated Dressing / Incision Call your doctor if you observe: Fever of 101 or Higher, Coldness, Increased Pain, Numbness or Tingling, Change in Color, Inability to urinate, Inability to have a bowel movement, Shortness of breath, Dizziness, Fainting spells, Swelling in the ankles, Chest pain, Prolonged hiccupping, Increased palpitations (irregular heartbeat) and Calf discomfort Follow Up Care When: IN 2 WEEKS Test Results: Test results from this visit will be discussed in further detail at your follow-up appointment, if applicable. Discharge Plan Admission Admit Date/Time: 12/11/24 16:45 Primary Reason for Your Visit: Acute decompensated HFrEF. Paroxysmal A-fib. Attending Provider: Sukumar Restrepo Primary Care Provider: Rigoberto Gould Consulting Providers: Nata Jackson; Mary Jo Granados Discharge Orders/Prescriptions Prescriptions: New Eliquis 5 mg Tablet 5 mg PO BID 30 Days Qty: 60 0RF midodrine 5 mg Tablet 10 mg PO TIDCM 30 Days Qty: 180 0RF Rx Instructions: Hold for SBP more than 100 mmHg Continued melatonin 5 mg tablet 10 mg PO HS PRN (Reason: Sleep) loratadine 10 mg capsule 10 mg PO DAILY PRN (Reason: allergy symptoms) sevelamer carbonate 800 mg tablet 800 mg PO TID Rx Instructions: must administer with a meal/food (DME) handicap placcard See Rx Instructions .Route .MEDSUPPLY Qty: 1 0RF Rx Instructions: Dx: Debility Exp: 5 years tadalafil 20 mg tablet 20 mg PO DAILY PRN (Reason: sexual activity) hydroxyzine HCl 25 mg tablet 25 mg PO Q6 PRN (Reason: itch) insulin glargine [Lantus Solostar U-100 Insulin] 100 unit/mL (3 mL) insulin pen 10 unit subcut QPM Patient Comments: PT HASNT BEEN NEEDED, BS LOW. latanoprost 1 DROP bottle 1 drp EACH EYE QHS Dialyvite 800 0.8 mg tablet 1 tab PO DAILY trazodone 50 mg tablet 50 mg PO QHS benzonatate 100 mg capsule 100 mg PO TID PRN (Reason: cough) atorvastatin 40 mg tablet 40 mg PO DAILY pantoprazole 40 mg tablet,delayed release (DR/EC) 40 mg PO BID Changed bumetanide 2 mg tablet 2 mg PO UD Qty: 90 3RF Rx Instructions: On the days not on dialysis, Sunday, Sunday, Sunday and Sunday Discontinued metolazone 5 mg tablet 5 mg PO DAILY aspirin [Adult Aspirin Regimen] 81 mg tablet,delayed release (DR/EC) 81 mg PO DAILY Qty: 90 3RF Referrals / Follow Up: Rigoberto Gould MD [Primary Care Provider] - Nata Jackson MD [Med Staff - Consulting] - Within 2 Weeks Jnesen Claire MD [Med Staff - Active Staff] - Within 1 Month Disposition Disposition (needs filled in before D/C Order can be placed): Home, Self Care 12/13/24 1333 Sukumar Restrepo MD CC: Dr. Mary Jo Granados MD; Dr. Nata Jackson MD; Dr. Rigoberto Gould MD Signed Normal [facility] Eosinophil percentageOrdered By: Sukumar Restrepo on 12-13-2024 Eosinophils/100 WBC (Bld) 2.1 % 0-5 [facility] Erythrocyte distribution wid th (RBC) [Ratio]Ordered By: Sukumar Restrepo on 12-13-2024 Erythrocyte distribution width (RBC) [Entitic vol] 58.9 fL High 35.1-43.9 [facility] Erythrocyte distribution wid th ratioOrdered By: Sukumar Restrepo on 12-13-2024 Erythrocyte distribution width (RBC) [Ratio] 17.4 % High 11.6-14.6 [facility] Erythrocyte distribution wid th standard deviationOrdered By: Sukumar Restrepo on 12-13-2024 Erythrocyte distribution width (RBC) [Ratio] 58.9 fl High 35.1-43.9 [facility] Estimation of creatinine wayne aranceOrdered By: Sukumar Restrepo on 12-13-2024 Estimated Creatinine Clearance Calc 11.28 ml/min Low 50-250 [facility] GFR/1.73 sq M.predicted corazon g non-blacks MDRD (S/P/Bld) [Vol rate/Area]Ordered By: Sukumar Restrepo on 12-13-2024 Estimated GFR (MDRD) Non-Af Amer 9 Low >60 [facility] Comment on above: mL/min/1.73m2 CKD-EP I Creatinine Equation (2020) Glomerular filtration rate ( GFR) estimation/1.73 sq m using serum, plasma, or whole bOrdered By: Sukumar Restrepo on 12-13-2024 GFR/1.73 sq M.predicted among non-blacks MDRD (S/P/Bld) [Vol rate/Area] 9 mL/min/{1.73_m2} Low >60 [facility] Glucose measurement at bedsi deOrdered By: Sukumar Restrepo on 12-13-2024 Bedside Glucose (Misc Panel) 77 mg/dL 74-106 [facility] Comment on above: MANAGEMENT OF PATIEN T CARE PER NURSING PROTOCOL Glucose [Mass/Vol] 77 mg/dL 74-106 [facility] Hematocrit Auto (Bld) [Volum e fraction]Ordered By: Sukumar Restrepo on 12-13-2024 Hematocrit (Bld) [Volume fraction] 36.6 % Low 40-54 [facility] Hemoglobin measurementOrdere d By: Sukumar Restrepo on 12-13-2024 Hemoglobin (Bld) [Mass/Vol] 12.1 g/dL Low 13.0-16.5 [facility] Immature granulocytes/100 WB C Auto (Bld)Ordered By: Sukumar Restrepo on 12-13-2024 Immature granulocytes/100 WBC (Bld) 0.300 % 0.0-0.9 [facility] Comment on above: IG% - Immature Granu locytes (promyelocytes, myelocytes and metamyelocytes) > 1% indicates that a LEFT SHIFT is Present. Lymphocytes Auto (Unsp spec) [#/Vol]Ordered By: Sukumar Restrepo on 12-13-2024 Lymphocytes (Bld) [#/Vol] 0.80 10*3/uL Low 0.83-4.51 [facility] Lymphocytes/100 WBC Auto (Un sp spec)Ordered By: Sukumar Restrepo on 12-13-2024 Lymphocytes/100 WBC (Bld) 10.5 % Low 19-41 [facility] MCV (mean corpuscular volume ) determinationOrdered By: Sukumar Restrepo on 12-13-2024 MCV (RBC) [Entitic vol] 95.1 fL High 80-94 [facility] Mean corpuscular hemoglobin (MCH) determinationOrdered By: Sukumar Restrepo on 12-13-2024 MCH (RBC) [Entitic mass] 31.4 pg 27.0-32.0 [facility] Mean corpuscular hemoglobin concentration (MCHC) determinationOrdered By: Sukumar Restrepo on 12-13-2024 MCHC (RBC) [Mass/Vol] 33.1 g/dL 32-36 [facility] Mean platelet volume determi nationOrdered By: Sukumar Restrepo on 12-13-2024 Platelet mean volume (Bld) [Entitic vol] 9.7 fL 6.2-12.0 [facility] Monocyte percentageOrdered B y: Sukumar Restrepo on 12-13-2024 Monocytes/100 WBC (Bld) 15.1 % High 0-10 [facility] Neutrophil percentageOrdered By: Sukumar Restrepo on 12-13-2024 Neutrophils/100 WBC (Bld) 71.5 % High 47-70 [facility] Nucleated red blood cell per centageOrdered By: Sukumar Restrepo on 12-13-2024 Nucleated RBC/100 WBC (Bld) [Ratio] 0 % 0-5 [facility] Platelet countOrdered By: Dulce Restrepo on 12-13-2024 Platelets (Bld) [#/Vol] 146 10*3/uL Low 150-450 [facility] Potassium (Unsp spec) [Mass/ Vol]Ordered By: Sukumar Restrepo on 12-13-2024 Potassium [Moles/Vol] 4.4 mmol/L 3.3-5.1 [facility] Potassium measurement (mass/ volume)Ordered By: Sukumar Restrepo on 12-13-2024 Potassium (Unsp spec) [Mass/Vol] 4.4 mmol/L 3.3-5.1 [facility] RBC Auto (Bld) [#/Vol]Ordere d By: Sukumar Restrepo on 12-13-2024 RBC (Bld) [#/Vol] 3.85 10*6/uL Low 4.6-6.2 [facility] Serum creatinine measurement (mass/volume)Ordered By: Sukumar Restrepo on 12-13-2024 Creatinine [Mass/Vol] 6.56 mg/dL High 0.70-1.20 [facility] Serum glucose measurement (m ass/volume)Ordered By: Sukumar Restrepo on 12-13-2024 Glucose [Mass/Vol] 59 mg/dL Low 70-99 [facility] Serum or plasma calcium sneha urement (mass/volume)Ordered By: Sukumar Restrepo on 12-13-2024 Calcium [Mass/Vol] 9.4 mg/dL 7.6-11.0 [facility] Serum or plasma urea nitroge n measurement (mass/volume)Ordered By: Sukumar Restrepo on 12-13-2024 Urea nitrogen [Mass/Vol] 87 mg/dL High 4-19 [facility] Sodium levelOrdered By: Gurjit Restrepo on 12-13-2024 Sodium [Moles/Vol] 134 mmol/L 133-145 [facility] White blood cell (WBC) count Ordered By: Sukumar Restrepo on 12-13-2024 WBC (Bld) [#/Vol] 7.6 10*3/uL 4.4-11.0 [facility] Basic Metabolic Profile (BMP )on 12-12-2024 BUN/CRE 15.6 RATIO Normal 10-20 [facility] Comment on above: Performed By: #### L 500.2500 ####[facility] [address] [place], [address] Calcium [Mass/Vol] 9.6 mg/dL Normal 7.6-11.0 [facility] Comment on above: Performed By: #### L 500.2500 ####[facility] [address] [place], [address] Chloride [Moles/Vol] 86 mmol/L Low 98-108 [facility] Comment on above: Performed By: #### L 500.2500 ####[facility] [address] [place], [address] CO2 [Moles/Vol] 15.9 mmol/L Low 21.0-32.0 [facility] Comment on above: Performed By: #### L 500.2500 ####[facility] [address] [place], [address] Creatinine [Mass/Vol] 8.40 mg/dL Invalid Interpretation Code 0.70-1.20 [facility] Comment on above: Result Comment: Crit ical Result(s) Called at 0113: by: NBURNS TO MGROVE??Results read back by same. Performed By: #### L 500.2500 ####[facility] [address] [place], [address] ECRCL 8.81 ml/min Invalid Interpretation Code 50-250 [facility] Comment on above: Performed By: #### L 500.2500 ####[facility] [address] [place], [address] GAP 28 High 5-15 [facility] Comment on above: Performed By: #### L 500.2500 ####[facility] [address] [place], [address] GFR/1.73 sq M.predicted among non-blacks MDRD (S/P/Bld) [Vol rate/Area] 6 mL/min/{1.73_m2} Low >60 [facility] Comment on above: Result Comment: mL/m in/1.73m2 CKD-EPI Creatinine Equation (2020) Performed By: #### L 500.2500 ####[facility] [address] [place], [address] Glucose [Mass/Vol] 93 mg/dL Normal 70-99 [facility] Comment on above: Performed By: #### L 500.2500 ####[facility] [address] [place], [address] Potassium [Moles/Vol] 5.4 mmol/L High 3.3-5.1 [facility] Comment on above: Performed By: #### L 500.2500 ####[facility] [address] [place], [address] Sodium [Moles/Vol] 129 mmol/L Low 133-145 [facility] Comment on above: Performed By: #### L 500.2500 ####[facility] [address] [place], [address] Urea nitrogen [Mass/Vol] 131 mg/dL Invalid Interpretation Code 12-13 [facility] Comment on above: Result Comment: Crit ical Result(s) Called at 0113: by: NBURNS TO MGROVE??Results read back by same. Performed By: #### L 500.2500 ####[facility] [address] [place], [address] Bedside Glucoseon 12-12-2024 FINGERSTICK GLU 79 mg/dL Normal 74-106 [facility] Comment on above: Result Comment: BONI GEMENT OF PATIENT CARE PER NURSING PROTOCOL Performed By: #### L 501.080 ####[facility] [address] [place], [address] FINGERSTICK GLU 131 mg/dL High 74-106 [facility] Comment on above: Result Comment: BONI GEMENT OF PATIENT CARE PER NURSING PROTOCOL Performed By: #### L 501.080 ####[facility] [address] [place], [address] FINGERSTICK GLU 64 mg/dL Low 74-106 [facility] Comment on above: Result Comment: BONI GEMENT OF PATIENT CARE PER NURSING PROTOCOL Performed By: #### L 501.080 ####[facility] [address] [place], [address] FINGERSTICK GLU 61 mg/dL Low 74-106 [facility] Comment on above: Result Comment: BONI GEMENT OF PATIENT CARE PER NURSING PROTOCOL Performed By: #### L 509.7001 #### [facility] [address] [place], [address] FINGERSTICK GLU 71 mg/dL Low 74-106 [facility] Comment on above: Result Comment: BONI GEMENT OF PATIENT CARE PER NURSING PROTOCOL Performed By: #### L 501.080 #### [facility] [address] [place], [address] FINGERSTICK GLU 63 mg/dL Low 74-106 [facility] Comment on above: Result Comment: BONI GEMENT OF PATIENT CARE PER NURSING PROTOCOL Performed By: #### L 501.080 #### [facility] [address] [place], [address] FINGERSTICK GLU 114 mg/dL High 74-106 [facility] Comment on above: Result Comment: BONI GEMENT OF PATIENT CARE PER NURSING PROTOCOL Performed By: #### L 501.080 ####[facility] [address] [place], [address] FINGERSTICK GLU 75 mg/dL Normal 74-106 [facility] Comment on above: Result Comment: BONI GEMENT OF PATIENT CARE PER NURSING PROTOCOL Performed By: #### L 501.080 #### [facility] [address] [place], [address] FINGERSTICK GLU 133 mg/dL High 74-106 [facility] Comment on above: Result Comment: BONI GEMENT OF PATIENT CARE PER NURSING PROTOCOL Performed By: #### L 501.080 ####[facility] [address] [place], [address] FINGERSTICK GLU 89 mg/dL Normal 74-106 [facility] Comment on above: Result Comment: BONI KASPER OF PATIENT CARE PER NURSING PROTOCOL Performed By: #### L 501.080 #### [facility] [address] [place], [address] Bilirubin, totalOrdered By: Mary Jo Granados on 12-12-2024 Bilirubin [Mass/Vol] 0.93 mg/dL 0.00-1.30 [facility] CBC W/Diff, Automatedon 11-25 Absolute Lymph 0.69 X10 3/uL Low 0.83-4.51 [facility] Comment on above: Performed By: #### L 501.9520, L500.4050, L100.0100, L500.4100 ####[facility] [address] [place], [address] Absolute Neut 6.2 X10 3/uL Normal 2.0-7.7 [facility] Comment on above: Performed By: #### L 501.9520, L500.4050, L100.0100, L500.4100 ####[facility] [address] [place], [address] Basophils/100 WBC (Bld) 0.4 % Normal 0-1 [facility] Comment on above: Performed By: #### L 501.9520, L500.4050, L100.0100, L500.4100 ####[facility] [address] [place], [address] Eosinophils/100 WBC (Bld) 0.9 % Normal 0-5 [facility] Comment on above: Performed By: #### L 501.9520, L500.4050, L100.0100, L500.4100 ####[facility] [address] [place], [address] Erythrocyte distribution width (RBC) [Ratio] 16.8 % High 11.6-14.6 [facility] Comment on above: Performed By: #### L 501.9520, L500.4050, L100.0100, L500.4100 ####[facility] [address] [place], [address] Hematocrit (Bld) [Volume fraction] 33.9 % Low 40-54 [facility] Comment on above: Performed By: #### L 501.9520, L500.4050, L100.0100, L500.4100 ####[facility] [address] [place], [address] Hemoglobin (Bld) [Mass/Vol] 11.8 g/dL Low 13.0-16.5 [facility] Comment on above: Performed By: #### L 501.9520, L500.4050, L100.0100, L500.4100 ####[facility] [address] [place], [address] IG% 0.500 Normal 0.0-0.9 [facility] Comment on above: Result Comment: IG% - Immature Granulocytes (promyelocytes, myelocytes and metamyelocytes) > 1% indicates that a LEFT SHIFT is Present. Performed By: #### L 501.9520, L500.4050, L100.0100, L500.4100 ####[facility] [address] [place], [address] Lymphocytes/100 WBC (Bld) 8.4 % Low 19-41 [facility] Comment on above: Performed By: #### L 501.9520, L500.4050, L100.0100, L500.4100 ####[facility] [address] [place], [address] MCH (RBC) [Entitic mass] 32.0 pg Normal 27.0-32.0 [facility] Comment on above: Performed By: #### L 501.9520, L500.4050, L100.0100, L500.4100 ####[facility] [address] [place], [address] MCHC (RBC) [Mass/Vol] 34.8 g/dL Normal 32-36 [facility] Comment on above: Performed By: #### L 501.9520, L500.4050, L100.0100, L500.4100 ####[facility] [address] [place], [address] MCV (RBC) [Entitic vol] 91.9 fL Normal 80-94 [facility] Comment on above: Performed By: #### L 501.9520, L500.4050, L100.0100, L500.4100 ####[facility] [address] [place], [address] Monocytes/100 WBC (Bld) 14.7 % High 0-10 [facility] Comment on above: Performed By: #### L 501.9520, L500.4050, L100.0100, L500.4100 ####[facility] [address] [place], [address] Neutrophils/100 WBC (Bld) 75.1 % High 47-70 [facility] Comment on above: Performed By: #### L 501.9520, L500.4050, L100.0100, L500.4100 ####[facility] [address] [place], [address] Nucleated RBC (Bld) [#/Vol] 0 10*3/uL Normal 0-5 [facility] Comment on above: Performed By: #### L 501.9520, L500.4050, L100.0100, L500.4100 ####[facility] [address] [place], [address] Platelet mean volume (Bld) [Entitic vol] 10.3 fL Normal 6.2-12.0 [facility] Comment on above: Performed By: #### L 501.9520, L500.4050, L100.0100, L500.4100 ####[facility] [address] [place], [address] Platelets (Bld) [#/Vol] 128 10*3/uL Low 150-450 [facility] Comment on above: Performed By: #### L 501.9520, L500.4050, L100.0100, L500.4100 ####[facility] [address] [place], [address] RBC (Bld) [#/Vol] 3.69 10*6/uL Low 4.6-6.2 [facility] Comment on above: Performed By: #### L 501.9520, L500.4050, L100.0100, L500.4100 ####[facility] [address] [place], [address] RDW SD 55.1 fl High 35.1-43.9 [facility] Comment on above: Performed By: #### L 501.9520, L500.4050, L100.0100, L500.4100 ####[facility] [address] [place], [address] WBC (Bld) [#/Vol] 8.2 10*3/uL Normal 4.4-11.0 [facility] Comment on above: Performed By: #### L 501.9520, L500.4050, L100.0100, L500.4100 ####[facility] [address] [place], [address] Calculated very low density lipoprotein (VLDL) cholesterol measurementOrdered By: Mary Jo Granados on 12-12-2024 Calculated very low density lipoprotein (VLDL) cholesterol measurement 16 mg/dL -40 [facility] VLDL Cholesterol 16 mg/dL -40 [facility] Comprehensive Metabolic Prof ilon 12-12-2024 Albumin [Mass/Vol] 3.6 g/dL Normal 3.4-4.8 [facility] Comment on above: Performed By: #### L 501.9520, L500.4050, L100.0100, L500.4100 ####[facility] [facility] [address] [place], [address] Albumin/Globulin [Mass ratio] 1.2 {ratio} Normal 0.9-2.4 [facility] Comment on above: Performed By: #### L 501.9520, L500.4050, L100.0100, L500.4100 ####[facility] [address] [place], [address] ALK PHOS 171 U/L High 40-129 [facility] Comment on above: Performed By: #### L 501.9520, L500.4050, L100.0100, L500.4100 ####[facility] [address] [place], [address] ALT [Catalytic activity/Vol] 18 U/L Normal <=46 [facility] Comment on above: Performed By: #### L 501.9520, L500.4050, L100.0100, L500.4100 ####[facility] [address] [place], [address] AST [Catalytic activity/Vol] 32 U/L Normal <=37 [facility] Comment on above: Performed By: #### L 501.9520, L500.4050, L100.0100, L500.4100 ####[facility] [address] [place], [address] Bilirubin [Mass/Vol] 0.93 mg/dL Normal 0.00-1.30 [facility] Comment on above: Performed By: #### L 501.9520, L500.4050, L100.0100, L500.4100 ####[facility] [address] [place], [address] BUN/CRE 14.9 RATIO Normal 10-20 [facility] Comment on above: Performed By: #### L 501.9520, L500.4050, L100.0100, L500.4100 ####[facility] [address] [place], [address] Calcium [Mass/Vol] 9.3 mg/dL Normal 7.6-11.0 [facility] Comment on above: Performed By: #### L 501.9520, L500.4050, L100.0100, L500.4100 ####[facility] [address] [place], [address] Chloride [Moles/Vol] 86 mmol/L Low 98-108 [facility] Comment on above: Performed By: #### L 501.9520, L500.4050, L100.0100, L500.4100 ####[facility] [address] [place], [address] CO2 [Moles/Vol] 17.3 mmol/L Low 21.0-32.0 [facility] Comment on above: Performed By: #### L 501.9520, L500.4050, L100.0100, L500.4100 ####[facility] [address] [place], [address] Creatinine [Mass/Vol] 8.32 mg/dL Invalid Interpretation Code 0.70-1.20 [facility] Comment on above: Result Comment: Crit ical Result(s) Called at: 0721 by:??NBURNS TO KELIN Results read back by same. Performed By: #### L 501.9520, L500.4050, L100.0100, L500.4100 ####[facility] [address] [place], [address] ECRCL 8.90 ml/min Invalid Interpretation Code 50-250 [facility] Comment on above: Performed By: #### L 501.9520, L500.4050, L100.0100, L500.4100 ####[facility] [address] [place], [address] GAP 27 High 5-15 [facility] Comment on above: Performed By: #### L 501.9520, L500.4050, L100.0100, L500.4100 ####[facility] [address] [place], [address] GFR/1.73 sq M.predicted among non-blacks MDRD (S/P/Bld) [Vol rate/Area] 6 mL/min/{1.73_m2} Low >60 [facility] Comment on above: Result Comment: mL/m in/1.73m2 CKD-EPI Creatinine Equation (2020) Performed By: #### L 501.9520, L500.4050, L100.0100, L500.4100 ####[facility] [address] [place], [address] Globulin (S) [Mass/Vol] 2.9 g/dL Normal 2.2-4.2 [facility] Comment on above: Performed By: #### L 501.9520, L500.4050, L100.0100, L500.4100 ####[facility] [address] [place], [address] Glucose [Mass/Vol] 68 mg/dL Low 70-99 [facility] Comment on above: Performed By: #### L 501.9520, L500.4050, L100.0100, L500.4100 ####[facility] [address] [place], [address] Potassium [Moles/Vol] 5.3 mmol/L High 3.3-5.1 [facility] Comment on above: Performed By: #### L 501.9520, L500.4050, L100.0100, L500.4100 ####[facility] [address] [place], [address] Sodium [Moles/Vol] 130 mmol/L Low 133-145 [facility] Comment on above: Performed By: #### L 501.9520, L500.4050, L100.0100, L500.4100 ####[facility] [address] [place], [address] T PROT 6.5 g/dL Normal 5.9-8.4 [facility] Comment on above: Performed By: #### L 501.9520, L500.4050, L100.0100, L500.4100 ####[facility] [address] [place], [address] Urea nitrogen [Mass/Vol] 124 mg/dL Invalid Interpretation Code 4-19 [facility] Comment on above: Result Comment: Crit ical Result(s) Called at: 0721 by:??NBURNS TO AIBACH Results read back by same. Performed By: #### L 501.9520, L500.4050, L100.0100, L500.4100 ####[facility] [address] [place], [address] Consultation - Nephrologyon 12-12-2024 Consultation - Nephrology [facility] Medical Records Department [address] [place] [address] Consultation - Nephrology 12/12/24 0935 MR#: [id number] Acct: [id number] Name: MAURI QUINONES Rep #: [id number] : 1955 69 From: Lauren Mcintyre MD PCP: Dr. Rigoberto Gould MD Status:ADM IN Location: [place] [address] Assessment Plan Assessment/Plan (1) End-stage renal disease on hemodialysis: PLAN: Plan Assessment/Plan: The patient is a 69-year-old male with past history of ESRD, type 2 diabetes mellitus, hypertension, CAD, ischemic cardiomyopathy with HFrEF, pulmonary hypertension, ankylosing spondylitis, GERD, and hyperlipidemia. Patient presents to the hospital on 12/11/2024 with generalized weakness, nausea and dyspnea. Patient is admitted to the hospital for treatment of decompensated heart failure. Nephrology is following for ESRD and dialysis management. ESRD. Patient usually dialyzes at [facility] on TTS schedule. Patient had missed 2 dialysis treatments on 12/09/2024 and 12/11/2024 prior to admission. Therefore, we will dialyze patient today and again tomorrow on 12/13/2024. I saw the patient and supervised the dialysis treatment today. Patient is tolerating dialysis well. We will dialyze patient again on 12/13/2024 to get him back on TTS schedule. Volume overload/heart failure. We will remove fluid as much as BP will allow with hemodialysis today and tomorrow. HPI Consult Data Date of Consult: 12/13/24 HPI Narrative Reason for Consultation: ESRD, dialysis management HPI Narrative: The patient is a 69-year-old male with past history of ESRD, type 2 diabetes mellitus, hypertension, CAD, ischemic cardiomyopathy with HFrEF, pulmonary hypertension, ankylosing spondylitis, GERD, and hyperlipidemia. Patient presents to the hospital on 12/11/2024 with generalized weakness, nausea and dyspnea. Prior to admission, patient had missed 2 dialysis treatments as outpatient. Nephrology is asked see the patient because of ESRD and dialysis management. Patient denies current chest pain, nausea, or vomiting. Dyspnea has improved. He does have lower extremity edema which is unchanged in severity. Patient makes some urine, and there is no LUTS. [facility] Medical History C. difficile diarrhea Anemia History of GI bleed Pure hypercholesterolemia Ischemic cardiomyopathy Essential hypertension Renal insufficiency Ankylosing spondylitis CAD (coronary artery disease) Overweight (BMI 25.0-29.9) Leg edema Leg swelling Acute systolic heart failure Bradycardia Biliary pleural effusion HTN (hypertension) Ventricular tachyarrhythmia Atherosclerosis of [place] coronary artery of [place] heart without angina pectoris Pulmonary HTN Cardiomyopathy Valvular heart disease NSTEMI (non-ST elevated myocardial infarction) CHF (congestive heart failure) Abscess of right foot Diabetes mellitus with neuropathy Gout DM2 (diabetes mellitus, type 2) Home Medications ???Medication ???Instructions ???Recorded ???Last Taken ???Type latanoprost 0.005 % eye drops 1 drp EACH EYE QHS 06/03/18 History melatonin 5 mg tablet 10 mg PO HS PRN Sleep 08/02/20 History loratadine 10 mg capsule 10 mg PO DAILY PRN allergy symptom s 10/24/21 12/10/24 History sevelamer carbonate 800 mg tablet 800 mg PO TID 05/30/22 12/10/24 H istory handicap placcard #1 ea 07/07/22 Unknown Rx aspirin 81 mg tablet,delayed 81 mg PO DAILY #90 tabs 04/23/24 0 12/10/24 Rx release (Adult Aspirin Regimen) bumetanide 2 mg tablet 2 mg PO DAILY FLUID #90 tabs 07/0912/10/24 Rx hydroxyzine HCl 25 mg tablet 25 mg PO Q6 PRN itch 10/28/2411/25 History insulin glargine 100 unit/mL (3 10 unit subcut QPM 10/28/24 Unknow n History mL) subcutaneous pen (Lantus Solostar U-100 Insulin) tadalafil 20 mg tablet 20 mg PO DAILY PRN sexual activity 10/28/24 Unknown History atorvastatin 40 mg tablet 40 mg PO DAILY 12/11/24 12/10/24 H istory benzonatate 100 mg capsule 100 mg PO TID PRN cough 12/11/24 0 12/10/24 History metolazone 5 mg tablet 5 mg PO DAILY 12/11/24 12/10/24 Hi story pantoprazole 40 mg tablet,delayed 40 mg PO BID 12/11/24 12/10/24 Hi story release trazodone 50 mg tablet 50 mg PO QHS 12/11/24 12/10/24 His tory vitamin B complex-vitamin C-folic 1 tab PO DAILY 12/11/24 12/10/24 History acid 0.8 mg tablet (Dialyvite 800) Allergy/AdvReac Type Severity Reaction Status Date / Time pregabalin (From Lyrica) Allergy Angioedema Verified 12/11/24 14:17 Family History Father CAD (coronary artery disease) Mother CAD (coronary artery disease) Surgical History Hist (more content not included)... Normal [facility] Echocardiogram study reportO rdered By: José Miguel Nunez on 12-12-2024 Study report [facility] Cardiovascular Services [address] [place] [address] Echo Complete 12/12/24 1441 MR#: [id number] Acct: [id number] Name: MAURI QUINONES Rep #:[id number] : 1955 69 From: José Miguel Hansen Attending Dr: Dr. Sukumar Restrepo MD Status: ADM IN Ordering Dr: Mary Jo Granados MD Date: 12/11/24 Location: PCU Sex: M C Admitted: 12/11/24 Reason For Study Reason For Study: CHF Procedure This was a 2D Doppler, Color Flow transthoracic echocardiogram. Exam performed portable in patient room. Left Ventricle Normal LV size. Moderate concentric left ventricular hypertrophy. The left ventricular ejection fraction is 25 %. Moderately severe segmental systolic dysfunction (see wall motion). Mid-Inferior: Akinetic. Basal inferoseptal: Akinetic. Mid-inferoseptal : Akinetic. Posterior-Basal: Akinetic. The rest of the wall segments are hypokinetic. Right Ventricle Mildly dilated right ventricle. Moderate global right ventricular systolic dysfunction. Atria The left atrium is mildly enlarged. The right atrium is moderately enlarged. Mitral Valve Bileaflet diffuse mitral valve thickening. There is moderate mitral annular calcification. The mitral papillary muscle appears thickened and/or calcified. Tricuspid Valve Normal tricuspid valve. Mild to moderate (1-2+) tricuspid valve insufficiency. Pulmonary artery systolic pressure is 60 mmHg. Aortic Valve Trisinus/trileaflet aortic valve. Moderate focal aortic valve calcification. Pulmonic Valve Normal pulmonic valve. Mild (1+) pulmonic valve insufficiency. Great Vessels Normal aortic root. The pulmonary artery is normal size. and does not collapse. Pericardium/Pleural No pericardial effusion. MMode/2D Measurements & Calculations LVIDd: 5.5 cm IVSd: 1.7 cm LVOT diam: 2.1 cm LVIDs: 5.1 cm LVPWd: 1.7 cm LVOT area: 3.4 cm2 RVDd: 5.3 cm FS: 6.4 % Ao root diam: 3.4 cm LAV(MOD-sp4): 80.0 ml LVAd ap4: 38.6 cm2 LVLd ap4: 8.6 cm EDV(MOD-sp4): 143.8 ml EDV(sp4-el): 146.5 ml LVAs ap4: 33.0 cm2 LVLs ap4: 8.6 cm ESV(MOD-sp4): 106.2 ml ESV(sp4-el): 107.4 ml EF(MOD-sp4): 26.2 % EF(sp4-el): 26.7 % __ SV(MOD-sp4): 37.6 ml SV(sp4-el): 39.1 ml LA A4 area: 24.9 cm2 SI(MOD-sp4): 19.1 ml/m2 __ LA dimension(2D): 4.7 cm RA A4 area: 29.6 cm2 Doppler Measurements & Calculations MV E max usha: 122.4 cm/sec Ao V2 max: 151.8 cm/sec LV V1 max: 121.5 cm/sec Ao max P.3 mmHg LV V1 max P.9 mmHg Ao V2 mean: 99.7 cm/sec LV V1 mean P.9 mmHg Ao mean P.7 mmHg LV V1 mean: 77.3 cm/sec Ao V2 VTI: 29.3 cm LV V1 VTI: 23.8 cm AV (velocity ratio): 0.81 MARIN(I,D): 2.7 cm2 MARIN(V,D): 2.7 cm2 __ SV(LVOT): 79.8 ml PA V2 max: 62.3 cm/sec TR max usha: 375.2 cm/sec PA V2 mean: 46.6 cm/sec TR max P.3 mmHg ECHO/Echo Complete Interpretation Summary The left ventricular ejection fraction is 25 %. Normal LV size. Moderately severe segmental systolic dysfunction (see wall motion). Pulmonary artery systolic pressure is 60 mmHg. Moderate concentric left ventricular hypertrophy. Ordering Physician: DARWIN IJ Referring Physician: RIGOBERTO GOULD Performed By: Theresa Maria RCS 12/12/24 1535 Date _ José Miguel Nunez MD CC: Dr. Mary Jo Granados MD; Dr. Sukumar Restrepo MD; Dr. Rigoberto Gould MD ~ Date Dictated: 12/12/24 1441 Date Transcribed: 12/12/24 153 Crts: Signed [facility] Work Phone: Electrocardiogram reportOrde red By: Jensen Claire on 12-12-2024 EKG study [facility] Cardiovascular Services [address] [place] [address] 12 Lead EKG 12/11/24 1535 MR#: [id number] Acct: [id number] Name: MAURI QUINONES Rep #:[id number] : 1955 69 From: Jensen karimi MD Attending Dr: Dr. Sukumar Restrepo MD Status: ADM IN Ordering Dr: Rafa Felder MD Date: 12/11 Location: [facility] Sex: M C Admitted: 12/11/24 Test Reason : Blood Pressure : */* mmHG Vent. Rate : 89 BPM Atrial Rate : * BPM P-R Int : * ms QRS Dur : 162 ms QT Int : 428 ms P-R-T Axes : * 240 72 degrees QTcB Int : 520 ms Atrial fibrillation Right bundle branch block Abnormal ECG Cannot rule out anterior TN-old Confirmed by Jensen Claire ([id number]), mapping editor BRYCE DIMAS ([id number]) on 512:44:28 PM Referred By: Confirmed By: Jensen Claire 12/12/24 1244 Date _ Jensen Claire MD CC: Dr. Sukumar Restrepo MD; Dr. Rafa Felder MD; Dr. Rigoberto Gould MD ~ Signed [facility] Work Phone: LDL calc ser/plasOrdered By: Mary Jo Granados on 12-12-2024 Cholesterol in LDL [Mass/Vol] 97 mg/dL [facility] LDL Cholesterol, Calculated 97 mg/dL [facility] [place] [facility] Comment on above: Eaidkbxtmr=409-406 m g/dL & Higher Uozu=621 mg/dL or greater Laboratory - Chemistry and C hemistry - challengeOrdered By: Mary Jo Granados on 12-12-2024 AST [Catalytic activity/Vol] 32 U/L <38 [facility] Lipid Profileon 12-12-2024 CHOL:HDL 4.12 Normal [facility] Comment on above: Performed By: #### L 501.9520, L500.4050, L100.0100, L500.4100 ####[facility] [address] [place], [address] Cholesterol [Mass/Vol] 149 mg/dL Normal <=200 [facility] Comment on above: Result Comment: Chol esterol level, Desirable <200 mg/dL Borderline high cholesterol 200-239 mg/dL High cholesterol >=240 mg/dL Recommendations of the NCEP Adult Treatment Panel for the following risk-cutoff thresholds for the [place] population. Performed By: #### L 501.9520, L500.4050, L100.0100, L500.4100 ####[facility] [address] [place], [address] Cholesterol in HDL [Mass/Vol] 36 mg/dL Low [facility] Comment on above: Result Comment: [place] onal Cholesterol Education Program (NCEP) guidelines: <40 mg/dL: Low HDL-cholesterol (major risk factor for CHD) >= 60 mg/dL: High HDL-cholesterol (negative risk factor for CHD) HDL-cholesterol is affected by a number of factors, e.g. smoking, exercise, hormones, sex and age. Performed By: #### L 501.9520, L500.4050, L100.0100, L500.4100 ####[facility] [address] [place], [address] Cholesterol in LDL [Mass/Vol] 97 mg/dL Normal [facility] Comment on above: Result Comment: Bord dqimtq=866-593 mg/dL Higher Lcmq=343 mg/dL or greater Performed By: #### L 501.9520, L500.4050, L100.0100, L500.4100 ####[facility] [address] [place], [place], [address] Cholesterol in VLDL [Mass/Vol] 16 mg/dL Normal 5-40 [facility] Comment on above: Performed By: #### L 501.9520, L500.4050, L100.0100, L500.4100 ####[facility] [address] [place], [place], [address] Triglyceride [Mass/Vol] 78 mg/dL Normal [facility] Comment on above: Result Comment: The drugs N-Acetylcysteine and Metamizole may falsely depress this assay. Normal range: <150 mg/dL Borderline High: 150-199 mg/dL High: 200-499 mg/dL Very High: >500 mg/dL Performed By: #### L 501.9520, L500.4050, L100.0100, L500.4100 ####[facility] [address] [place], [place], [address] No Panel InformationOrdered By: Darwin on 12-12-2024 32 U/L <38 [facility] RESPIRATORY PANEL MOLECULARo n 12-12-2024 RP PANEL ADENOVIRUS Not Detected INFLUENZA A Not Detected INFLUENZA A (SUBTYPE H1) Not Detected INFLUENZA A (SUBTYPE H3) Not Detected INFLUENZA B Not Detected HUMAN METAPHNEUMO Not Detected PARAINFLUENZA 1 Not Detected PARAINFLUENZA 2 Not Detected PARAINFLUENZA 3 Not Detected PARAINFLUENZA 4 Not Detected RHINOVIRUS Not Detected RSV A Not Detected RSV B Not Detected Normal [facility] Comment on above: Performed By: #### M 100.638 ####[facility] [address] [place], [address] Screening total cholesterol/ high density lipoprotein (HDL) cholesterol ratioOrdered By: Mary Jo Darwin on 12-12-2024 Cholesterol.total/Cho lesterol in HDL [Mass ratio] 4.12 {ratio} [facility] Serum globulin measurementOr dered By: Mary Jo Darwin on 12-12-2024 Globulin (S) [Mass/Vol] 2.9 g/dL 2.2-4.2 [facility] Serum or plasma alanine brink otransferase (ALT) measurementOrdered By: Mary Jo Darwin on 12-12-2024 ALT [Catalytic activity/Vol] 18 U/L <47 [facility] Serum or plasma albumin sneha urement (mass/volume)Ordered By: Mary Jo Darwin 12-12-2024 Albumin [Mass/Vol] 3.6 g/dL 3.4-4.8 [facility] Serum or plasma albumin/glob ulin mass ratioOrdered By: [facility] on 12-12-2024 Albumin/Globulin [Mass ratio] 1.2 {ratio} 0.9-2.4 [facility] Serum or plasma alkaline darin sphatase measurementOrdered By: [facility] 12-12-2024 ALP [Catalytic activity/Vol] 171 U/L High 40-129 [facility] Serum or plasma cholesterol in HDL measurement (mass/volume)Ordered By: Mary Jo Darwin 12-12-2024 Cholesterol in HDL [Mass/Vol] 36 mg/dL Low >40 [facility] Comment on above: National Cholesterol Education Program (NCEP) guidelines:<40 mg/dL: Low HDL-cholesterol (major risk factor for CHD)>= 60 mg/dL: High HDL-cholesterol (negative risk factor for CHD)HDL-cholesterol is affected by a number of factors, e.g. smoking, exercise, hormones, sex and age. Serum or plasma cholesterol measurement (mass/volume)Ordered By: Mary Jo Darwin on 12-12-2024 Cholesterol [Mass/Vol] 149 mg/dL <201 [facility] Comment on above: Cholesterol level, D esirable <200 mg/dLBorderline high cholesterol 200-239 mg/dLHigh cholesterol >=240 mg/dLRecommendations of the NCEP Adult Treatment Panel for the following risk-cutoff thresholds for the [place] population. TSH DL <= 0.005 mIU/L QnOrde red By: Mary Jo Granados on 12-12-2024 Thyroid Stimulating Hormone (TSH) 3.050 uIU/mL 0.300-4.200 [facility] TSH Qn 3.050 uIU/mL 0.300-4.200 [facility] Thyroid Stim Hormone (TSH)on 12-12-2024 TSH 3.050 uIU/mL Normal 0.300-4.200 [facility] Comment on above: Performed By: #### L 501.9520, L500.4050, L100.0100, L500.4100 ####[facility] [address] [place], [address] Total proteinOrdered By: Claudia Granados on 12-12-2024 Protein [Mass/Vol] 6.5 g/dL 5.9-8.4 [facility] Triglycerides measurementOrd ered By: Mary Jo Darwin on 12-12-2024 Triglyceride [Mass/Vol] 78 mg/dL <199 [facility] Comment on above: The drugs N-Acetylcy steine and Metamizole may falsely depress this assay. Normal range: <150 mg/dLBorderline High: 150-199 mg/dLHigh: 200-499 mg/dLVery High: >500 mg/dL 12 Lead EKGon 12-11-2024 12 Lead EKG [facility] Cardiovascular Services [address] [place] [address] 12 Lead EKG 12/11/24 1535 MR#: [id number] Acct: [id number] Name: MAURI QUINONES Rep #: [id number] : 1955 69 From: Jensen Claire MD Attending Dr: Dr. Sukumar Restrepo MD Status: ADM IN Ordering Dr: Rafa Felder MD Date: 12/11/24 Location: [facility] Sex: M C Admitted: 12/11/24 Test Reason : Blood Pressure : */* mmHG Vent. Rate : 89 BPM Atrial Rate : * BPM P-R Int : * ms QRS Dur : 162 ms QT Int : 428 ms P-R-T Axes : * 240 72 degrees QTcB Int : 520 ms Atrial fibrillation Right bundle branch block Abnormal ECG Cannot rule out anterior TN-old Confirmed by Jensen Claire ([id number]), mapping editor BRYCE DIMAS ([id number]) on 12/12/2024 12:44:28 PM Referred By: Confirmed By: Jensen Claire 12/12/24 1244 Date Jensen Claire MD CC: Dr. Sukumar Restrepo MD; Dr. Rafa Felder MD; Dr. Rigoberto Gould MD Signed Normal [facility] Absolute neutrophil countOrd ered By: Rafa Felder on 12-11-2024 Neutrophils (Bld) [#/Vol] 7.0 10*3/uL 2.0-7.7 [facility] Anion gap in Serum or Plasma Ordered By: Rafa Felder on 12-11-2024 Anion gap [Moles/Vol] 26 mmol/L High - [facility] BUN/creatinine ratioOrdered By: Rafarima Felder on 12-11-2024 Urea nitrogen/Creatinine [Mass ratio] 15.4 mg/mg - [facility] Basic Metabolic Profile (BMP )on 12-11-2024 BUN/CRE 14.9 RATIO Normal 06-15 [facility] Comment on above: Performed By: #### L 500.2500 #### [facility] Laboratory [address] [place], [address] Calcium [Mass/Vol] 9.8 mg/dL Normal 7.6-11.0 [facility] Comment on above: Performed By: #### L 500.2500 #### [facility] Laboratory [address] [place], [address] Chloride [Moles/Vol] 85 mmol/L Low 98-108 [facility] Comment on above: Performed By: #### L 500.2500 #### [facility] Laboratory [address] [place], [address] CO2 [Moles/Vol] 16.7 mmol/L Low 21.0-32.0 [facility] Comment on above: Performed By: #### L 500.2500 #### [facility] Laboratory [address] [place], [address] Creatinine [Mass/Vol] 8.21 mg/dL Invalid Interpretation Code 0.70-1.20 [facility] Comment on above: Result Comment: Crit ical Result(s) Called at 2311: by:?? NBURNS TO AFLICKINGER Results read back by same. Performed By: #### L 500.2500 #### [facility] Laboratory [address] [place], [address] ECRCL 9.02 ml/min Invalid Interpretation Code 50-250 [facility] Comment on above: Performed By: #### L 500.2500 #### [facility] Laboratory [address] [place], [address] GAP 29 High 5-15 [facility] [facility] Comment on above: Performed By: #### L 500.2500 #### [facility] [address] [place], [address] GFR/1.73 sq M.predicted among non-blacks MDRD (S/P/Bld) [Vol rate/Area] 7 mL/min/{1.73_m2} Low >60 [facility] Comment on above: Result Comment: mL/m in/1.73m2 CKD-EPI Creatinine Equation (2020) Performed By: #### L 500.2500 #### [facility] [address] [place], [address] Glucose [Mass/Vol] 148 mg/dL High 70-99 [facility] Comment on above: Performed By: #### L 500.2500 #### [facility] [address] [place], [address] Potassium [Moles/Vol] 5.9 mmol/L High 3.3-5.1 [facility] Comment on above: Performed By: #### L 500.2500 #### [facility] [address] [place], [address] Sodium [Moles/Vol] 130 mmol/L Low 133-145 [facility] Comment on above: Performed By: #### L 500.2500 #### [facility] [address] [place], [address] Urea nitrogen [Mass/Vol] 122 mg/dL Invalid Interpretation Code 4-19 [facility] Comment on above: Result Comment: Crit ical Result(s) Called at 2311: by:?? NBURNS TO AFLICKINGER Results read back by same. Performed By: #### L 500.2500 #### [facility] [address] [place], [address] BUN/CRE 15.4 RATIO Normal 10-20 [facility] Comment on above: Performed By: #### L 501.080 #### [facility] [address] [place], [address] Calcium [Mass/Vol] 10.0 mg/dL Normal 7.6-11.0 [facility] Comment on above: Performed By: #### L 501.080 #### [facility] [address] [place], [address] Chloride [Moles/Vol] 84 mmol/L Low 98-108 [facility] Comment on above: Performed By: #### L 501.080 #### [facility] [address] [place], [address] CO2 [Moles/Vol] 21.0 mmol/L Normal 21.0-32.0 [facility] Comment on above: Performed By: #### L 501.080 #### [facility] [address] [place], [address] Creatinine [Mass/Vol] 8.04 mg/dL Invalid Interpretation Code 0.70-1.20 [facility] Comment on above: Result Comment: Crit ical Result(s) Called KARYSTHERMELINDO at: 1606 by: MARGUERITE??Results read back by same. Performed By: #### L 501.080 #### [facility] [address] [place], [address] GAP 26 High 5-15 [facility] Comment on above: Performed By: #### L 501.080 #### [facility] [address] [place], [address] GFR/1.73 sq M.predicted among non-blacks MDRD (S/P/Bld) [Vol rate/Area] 7 mL/min/{1.73_m2} Low >60 [facility] Comment on above: Result Comment: mL/m in/1.73m2 CKD-EPI Creatinine Equation (2020) Performed By: #### L 501.080 #### [facility] [address] [place], [address] Glucose [Mass/Vol] 88 mg/dL Normal 70-99 [facility] Comment on above: Performed By: #### L 501.080 #### [facility] [address] [place], [address] Potassium [Moles/Vol] 5.9 mmol/L High 3.3-5.1 [facility] Comment on above: Performed By: #### L 501.080 #### [facility] [address] [place], [address] Sodium [Moles/Vol] 131 mmol/L Low 133-145 [facility] Comment on above: Performed By: #### L 501.080 #### [facility] [address] [place], [address] Urea nitrogen [Mass/Vol] 124 mg/dL Invalid Interpretation Code 4-19 [facility] Comment on above: Result Comment: Crit ical Result(s) Called ZAUMER at: 1606 by: MARGUERITE??Results read back by same. Performed By: #### L 501.080 #### [facility] [address] [place], [address] Basophil percentageOrdered B y: Rafa Felder on 12-11-2024 Basophils/100 WBC (Bld) 0.7 % 0-1 [facility] CBC W/Diff, Automatedon 04-09 02-2024 Absolute Lymph 0.70 X10 3/uL Low 0.83-4.51 [facility] Comment on above: Performed By: #### L 501.080 #### [facility] [address] [place], [address] Absolute Neut 7.0 X10 3/uL Normal 2.0-7.7 [facility] Comment on above: Performed By: #### L 501.080 #### [facility] [address] [place], [address] Basophils/100 WBC (Bld) 0.7 % Normal 0-1 [facility] Comment on above: Performed By: #### L 501.080 #### [facility] [address] [place], [address] Eosinophils/100 WBC (Bld) 0.9 % Normal 0-5 [facility] Comment on above: Performed By: #### L 501.080 #### [facility] [address] [place], [address] Erythrocyte distribution width (RBC) [Ratio] 17.0 % High 11.6-14.6 [facility] Comment on above: Performed By: #### L 501.080 #### [facility] [address] [place], [address] Hematocrit (Bld) [Volume fraction] 37.2 % Low 40-54 [facility] Comment on above: Performed By: #### L 501.080 #### [facility] [address] [place], [address] Hemoglobin (Bld) [Mass/Vol] 13.0 g/dL Normal 13.0-16.5 [facility] Comment on above: Performed By: #### L 501.080 #### [facility] [address] [place], [address] IG% 0.400 Normal 0.0-0.9 [facility] Comment on above: Result Comment: IG% - Immature Granulocytes (promyelocytes, myelocytes and metamyelocytes) > 1% indicates that a LEFT SHIFT is Present. Performed By: #### L 501.080 #### [facility] [address] [place], [address] Lymphocytes/100 WBC (Bld) 7.7 % Low 19-41 [facility] Comment on above: Performed By: #### L 501.080 #### [facility] [address] [place], [address] MCH (RBC) [Entitic mass] 32.4 pg High 27.0-32.0 [facility] Comment on above: Performed By: #### L 501.080 #### [facility] [address] [place], [address] MCHC (RBC) [Mass/Vol] 34.9 g/dL Normal 32-36 [facility] Comment on above: Performed By: #### L 501.080 #### [facility] [address] [place], [address] MCV (RBC) [Entitic vol] 92.8 fL Normal 80-94 [facility] Comment on above: Performed By: #### L 501.080 #### [facility] [address] [place], [address] Monocytes/100 WBC (Bld) 13.0 % High 0-10 [facility] Comment on above: Performed By: #### L 501.080 #### [facility] [address] [place], [address] Neutrophils/100 WBC (Bld) 77.3 % High 47-70 [facility] Comment on above: Performed By: #### L 501.080 #### [facility] [address] [place], [address] Nucleated RBC (Bld) [#/Vol] 0 10*3/uL Normal 0-5 [facility] Comment on above: Performed By: #### L 501.080 #### [facility] [address] [place], [address] Platelet mean volume (Bld) [Entitic vol] 10.1 fL Normal 6.2-12.0 [facility] Comment on above: Performed By: #### L 501.080 #### [facility] [address] [place], [address] Platelets (Bld) [#/Vol] 120 10*3/uL Low 150-450 [facility] Comment on above: Performed By: #### L 501.080 #### [facility] [address] [place], [address] RBC (Bld) [#/Vol] 4.01 10*6/uL Low 4.6-6.2 [facility] Comment on above: Performed By: #### L 501.080 #### [facility] [address] [place], [address] RDW SD 56.2 fl High 35.1-43.9 [facility] Comment on above: Performed By: #### L 501.080 #### [facility] [address] [place], [address] WBC (Bld) [#/Vol] 9.1 10*3/uL Normal 4.4-11.0 [facility] Comment on above: Performed By: #### L 501.080 #### [facility] [address] [place], [address] Carbon dioxide, total [Moles /volume] in Central venous bloodOrdered By: Rafa Felder on 12-11-2024 CO2 [Moles/Vol] 21.0 mmol/L 21.0-32.0 [facility] Chest PA and Lateralon 12-11 Chest PA and Lateral [facility] [address] [place] [address] Chest PA and Lateral MR#: [id number] Acct: [id number] Name: MAURI QUINONES Rep #: [id number] : 1955 M 69 From: Lee Davis MD PCP: Dr. Rigoberto Gould MD Status: REG ER Study: Chest PA and Lateral Date of Exam: 12/11/24 Exam# [id number] Ordering Dr: Rafa Felder MD PROCEDURE: CHEST PA AND LATERAL 12/11/2024 REASON FOR EXAM: COUGH AND SHORTNESS OF BREATH, HISTORY OF CHF TECHNIQUE: Frontal and lateral views of the chest. COMPARISON: None FINDINGS: Hardware: Sternotomy wires are present. Heart: Heart size is mildly enlarged. CABG. Mediastinum: Prominent pulmonary vessels and epicardial fat. Lungs: Bilateral lower lung peripheral septal thickening. No focal consolidation or pleural effusion. RAD/Chest PA and Lateral IMPRESSION: CHF exacerbation. Reading Location: [facility] CC: Dr. Rafa Felder MD; Dr. Rigoberto Gould MD Crts: Signed Normal [facility] Chloride assayOrdered By: Crys Felder on 12-11-2024 Chloride [Moles/Vol] 84 mmol/L Low 98-108 [facility] Consultation - Cardiologyon 12-11-2024 Consultation - Cardiology [facility] Medical Records Department [address] [place] [address] Consultation - Cardiology 12/11/24 1753 MR#: [id number] Acct: [id number] Name: MAURI QUINONES Rep #: [id number] : 1955 69 From: Jensen Claire MD PCP: Dr. Rigoberto Gould MD Status:REG ER Location: ED Assessment Plan Assessment/Plan (1) Acute hyperkalemia: PLAN: Patient potassium is 5.9. This is up significant from his baseline. He has missed 2 dialysis appointments. Nephrology has been consulted for urgent dialysis. (2) End-stage renal disease on hemodialysis: PLAN: Patient has been on dialysis and has had problems with hypotension during dialysis. He is now off of all antihypertensive medical therapy. Will defer to nephrology for further evaluation and treatment of his end-stage renal disease. (3) History of ischemic cardiomyopathy: PLAN: Patient carries a history of an ischemic cardiomyopathy with an ejection fraction of 45% last evaluated on an echo in 2021. An echo will be repeated on this admission and appropriate medical therapy be recommended pending the outcome of that echocardiogram. We do have significant issues in trying to treat his him with guideline directed medical therapy given his hypotension with dialysis. Historically we have treated him on his off days and not treated him until after dialysis on the days he received dialysis. Will discuss with nephrology the possibility of adding an SGLT2 inhibitor for treatment of his heart failure. (4) Acute uremia: PLAN: Patient's BUN and creatinine are markedly elevated. He does appear to be mentating normally and alert and oriented x 3. He is able to carry on a normal conversation. Treatment and institution of dialysis to be deferred to nephrology. (5) Paroxysmal atrial fibrillation: PLAN: This is the first time I can find documented he is been in atrial fibrillation. His rate is well-controlled on no rate modulating medical therapy. He does have a remote history of a GI bleed and that his hemoglobin on admission was 13. I recommend we trial placing him on Eliquis 5 mg twice daily. This is already been instituted in the emergency department. We should stop his aspirin. PLAN: Plan 1. Obtain 2D echocardiogram. 2. Once echo is available we will discuss with the primary service and nephrology about best options for treatment. 3. Would not feel that he will be reverting into sinus rhythm until after his metabolic derangements are corrected. 4. Recommend trialing him on Eliquis 5 mg twice daily. He does have a history of remote GI bleed his hemoglobin is 13 on today's lab work. 5. Currently his rate is well-controlled on no rate modulating drugs. HPI Consult Data Date of Consult: 12/11/24 HPI Narrative Reason for Consultation: New onset atrial fibrillation. HPI Narrative: MAURI QUINONES, is a 69 M who presents with a 5 to 6-day history of a URI type symptom he denies any fevers or chills but reports that he has been sick and coughing with a nonproductive cough. He missed his last 2 dialysis sessions one of the second 1 was today. He has noted some increasing dyspnea on exertion and significant drop in his appetite. He gets nauseated with any type of attempted oral intake. The patient is diabetic and possibly has gastroparesis. He has missed 2 dialysis sessions in the past without getting sick like this. The patient's EKG now shows that he is in atrial fibrillation I cannot find an old EKG that demonstrates atrial fibs. His other EKGs have shown sinus rhythm. When he was last evaluated in our office October 2024 he was in a regular rhythm but I did not do an ECG. Currently the patient is resting comfortably but his BUN and creatinine are markedly elevated as his potassium. And he is approximately 20 pounds above his routine dry weight. The patient does note that he has had some lower extremity edema but he intermittently has this in the past as well. The dialysis team and his dialysis center have been attempting to diurese him by switching him to torsemide and metolazone. But he has not had any significant urine output by his report since that change was made last week. Historically the patient has had trouble with dialysis due to hypotension and he has had to hold his Coreg the night before. Once he does this is dialysis has been able to be completed in 3 hours. Most recently his Coreg has been discontinued appropriately. The patient has a history of coronary disease status post bypass graft surgery in 2017 receiving a CARTY to the LAD a vein graft to the OM branch of the circumflex and a vein graft to the right coronary artery. His anginal equivalent was a profound dyspnea on exertion with a hot sensation. He denies any recurrence of the symptoms denies any chest pain. He does have a history of an ischemic cardiomyopathy EF is known to be 45% on an echocardiog (more content not included)... Normal [facility] Echo Completeon 12-11-2024 Echo Complete [facility] [address] [place] [address] Echo Complete 12/12/24 1441 MR#: [id number] Acct: [id number] Name: MAURI QUINONES Rep #: [id number] : 1955 69 From: José Miguel Nunez MD Attending Dr: Dr. Sukumar Restrepo MD Status: ADM IN Ordering Dr: Mary Jo Granados MD Date: 12/11/24 Location: [facility] Sex: M C Admitted: 12/11/24 Reason For Study Reason For Study: CHF Procedure This was a 2D Doppler, Color Flow transthoracic echocardiogram. Exam performed portable in patient room. Left Ventricle Normal LV size. Moderate concentric left ventricular hypertrophy. The left ventricular ejection fraction is 25 %. Moderately severe segmental systolic dysfunction (see wall motion). Mid-Inferior: Akinetic. Basal inferoseptal: Akinetic. Mid-inferoseptal : Akinetic. Posterior-Basal: Akinetic. The rest of the wall segments are hypokinetic. Right Ventricle Mildly dilated right ventricle. Moderate global right ventricular systolic dysfunction. Atria The left atrium is mildly enlarged. The right atrium is moderately enlarged. Mitral Valve Bileaflet diffuse mitral valve thickening. There is moderate mitral annular calcification. The mitral papillary muscle appears thickened and/or calcified. Tricuspid Valve Normal tricuspid valve. Mild to moderate (1-2+) tricuspid valve insufficiency. Pulmonary artery systolic pressure is 60 mmHg. Aortic Valve Trisinus/trileaflet aortic valve. Moderate focal aortic valve calcification. Pulmonic Valve Normal pulmonic valve. Mild (1+) pulmonic valve insufficiency. Great Vessels Normal aortic root. The pulmonary artery is normal size. and does not collapse. Pericardium/Pleural No pericardial effusion. MMode/2D Measurements Calculations LVIDd: 5.5 cm IVSd: 1.7 cm LVOT diam: 2.1 cm LVIDs: 5.1 cm LVPWd: 1.7 cm LVOT area: 3.4 cm2 RVDd: 5.3 cm FS: 6.4 % Ao root diam: 3.4 cm LAV(MOD-sp4): 80.0 ml LVAd ap4: 38.6 cm2 LVLd ap4: 8.6 cm EDV(MOD-sp4): 143.8 ml EDV(sp4-el): 146.5 ml LVAs ap4: 33.0 cm2 LVLs ap4: 8.6 cm ESV(MOD-sp4): 106.2 ml ESV(sp4-el): 107.4 ml EF(MOD-sp4): 26.2 % EF(sp4-el): 26.7 % SV(MOD-sp4): 37.6 ml SV(sp4-el): 39.1 ml LA A4 area: 24.9 cm2 SI(MOD-sp4): 19.1 ml/m2 LA dimension(2D): 4.7 cm RA A4 area: 29.6 cm2 Doppler Measurements Calculations MV E max usha: 122.4 cm/sec Ao V2 max: 151.8 cm/sec LV V1 max: 121.5 cm/sec Ao max P.3 mmHg LV V1 max P.9 mmHg Ao V2 mean: 99.7 cm/sec LV V1 mean P.9 mmHg Ao mean P.7 mmHg LV V1 mean: 77.3 cm/sec Ao V2 VTI: 29.3 cm LV V1 VTI: 23.8 cm AV (velocity ratio): 0.81 MARIN(I,D): 2.7 cm2 MARIN(V,D): 2.7 cm2 SV(LVOT): 79.8 ml PA V2 max: 62.3 cm/sec TR max usha: 375.2 cm/sec PA V2 mean: 46.6 cm/sec TR max P.3 mmHg ECHO/Echo Complete Interpretation Summary The left ventricular ejection fraction is 25 %. Normal LV size. Moderately severe segmental systolic dysfunction (see wall motion). Pulmonary artery systolic pressure is 60 mmHg. Moderate concentric left ventricular hypertrophy. Ordering Physician: DARWIN JI Referring Physician: RIGOBERTO GOLUD Performed By: Theresa Maria RCS 12/12/24 1535 Date José Miguel Nunez MD CC: Dr. Mary Jo Granados MD; Dr. Sukumar Restrepo MD; Dr. Rigoberto Gould MD Date Dictated: 12/12/24 1441 Date Transcribed: 12/12/24 1535 Crts: Signed Normal [facility] Emergency Department Summary on 12-11-2024 Emergency Department Summary [facility] Medical Records Department [address] [place] [address] Emergency Department Summary 12/11/24 MR#: [id number] Acct: [id number] Name: MAURI QUINONES Rep #: [id number] : 1955 69 From: Rafa Felder MD PCP: Dr. Rigoberto Gould MD Status:REG ER Location: ED HPI History of Present Illness Chief Complaint: Nausea/Vomiting Detail of Chief Complaint: Upper respiratory symptoms, nausea vomiting generalized weak Informant: patient and spouse/S.O. Onset/Context/Timing Onset: Days (Symptoms started day he missed his dialysis, December 09) Context: Sudden Onset Timing: Continuous and Waxes and wanes Quality: General weakness, respiratory symptoms, nausea vomiting Location: Vague generalized Current Severity: Mild Maximum Severity: Moderate Worsened by: Nothing Relieved by: Nothing Associated Symptoms Associated Symptoms: Poor p.o. intake, decreased urine output Narrative Narrative: Patient is a 69-year-old male when I entered the room he and his significant other told me that the dialysis unit wants him tested for COVID. Attempted to ask questions and again I was informed he needs to be tested for COVID. Patient has not felt well since December 09. He did not go to dialysis on Sunday and did not go to his dialysis appointment today. He has chronic stable orthopnea. He also has pain in his right lower extremity that limits how flat he can lie. He does endorse swelling of his lower extremities. He denies fever, chills night sweats. He denies headache, double vision blurred vision loss of vision. Denies ear pain, ear drainage or ringing in his ears. He does endorse mild nasal congestion. He does endorse mild throat discomfort with coughing. His cough is nonproductive. He does endorse some mild dyspnea with activity. He denies PND. He denies chest discomfort. He denies abdominal pain. He does have nausea and vomiting. He denies hematemesis or coffee-ground emesis. He denies black or maroon-colored stool. His lower extremity exam are swollen compared to normal. He also has some slight discoloration. He denies history of DVT. Prior similar symptoms: Yes Recent Illness/Hospitalization: No [facility] Medical History C. difficile diarrhea Anemia History of GI bleed Pure hypercholesterolemia Ischemic cardiomyopathy Essential hypertension Renal insufficiency Ankylosing spondylitis CAD (coronary artery disease) Overweight (BMI 25.0-29.9) Leg edema Leg swelling Acute systolic heart failure Bradycardia Biliary pleural effusion HTN (hypertension) Ventricular tachyarrhythmia Atherosclerosis of [place] coronary artery of [place] heart without angina pectoris Pulmonary HTN Cardiomyopathy Valvular heart disease NSTEMI (non-ST elevated myocardial infarction) CHF (congestive heart failure) Abscess of right foot Diabetes mellitus with neuropathy Gout DM2 (diabetes mellitus, type 2) Home Medications ???Medication ???Instructions ???Recorded ???Last Taken ???Type latanoprost 0.005 % eye drops 1 drp EACH EYE QHS 06/03/18 History melatonin 5 mg tablet 10 mg PO HS PRN Sleep 08/02/20 History loratadine 10 mg capsule 10 mg PO DAILY PRN allergy symptom s 10/24/21 12/10/24 History sevelamer carbonate 800 mg tablet 800 mg PO TID 05/30/22 12/10/24 H istory handicap placcard #1 ea 07/07/22 Unknown Rx aspirin 81 mg tablet,delayed 81 mg PO DAILY #90 tabs 04/23/24 0 12/10/24 Rx release (Adult Aspirin Regimen) bumetanide 2 mg tablet 2 mg PO DAILY FLUID #90 tabs 07/0912/10/24 Rx hydroxyzine HCl 25 mg tablet 25 mg PO Q6 PRN itch 10/28/2411/25 History insulin glargine 100 unit/mL (3 10 unit subcut QPM 10/28/24 Unknow n History mL) subcutaneous pen (Lantus Solostar U-100 Insulin) tadalafil 20 mg tablet 20 mg PO DAILY PRN sexual activity 10/28/24 Unknown History atorvastatin 40 mg tablet 40 mg PO DAILY 12/11/24 12/10/24 H istory benzonatate 100 mg capsule 100 mg PO TID PRN cough 12/11/24 0 12/10/24 History metolazone 5 mg tablet 5 mg PO DAILY 12/11/24 12/10/24 Hi story pantoprazole 40 mg tablet,delayed 40 mg PO BID 12/11/24 12/10/24 Hi story release trazodone 50 mg tablet 50 mg PO QHS 12/11/24 12/10/24 His tory vitamin B complex-vitamin C-folic 1 tab PO DAILY 12/11/24 12/10/24 History acid 0.8 mg tablet (Dialyvite 800) Allergy/AdvReac Type Severity Reaction Status Date / Time pregabalin (From Lyrica) Allergy Angioedema Verified 12/11/24 14:17 Family History Father CAD (coronary artery disease) Mother CAD (coronary artery disease) Surgical History History of cataract extraction hx femur surger (more content not included)... Normal [facility] Eosinophil percentageOrdered By: [facility] on 12-11-2024 Eosinophils/100 WBC (Bld) 0.9 % 0-5 [facility] Erythrocyte distribution wid th (RBC) [Ratio][facility] Erythrocyte distribution width (RBC) [Entitic vol] 56.2 fL High 35.1-43.9 [facility] Erythrocyte distribution wid th ratioOrdered By: Rafarima Felder on 12-11-2024 Erythrocyte distribution width (RBC) [Ratio] 17.0 % High 11.6-14.6 [facility] GFR/1.73 sq M.predicted corazon g non-blacks MDRD (S/P/Bld) [Vol rate/Area]Ordered By: Rafarima Felder on 12-11-2024 Estimated GFR (MDRD) Non-Af Amer 7 Low >60 [facility] Comment on above: mL/min/1.73m2 CKD-EP I Creatinine Equation (2020) [facility] Exam - Hospitalist [facility] Medical Records Department [address] [place] [address] H P Exam - Hospitalist 12/11/24 1652 MR#: [id number] Acct: [id number] Name: MAURI QUINONES Rep #: [id number] : 1955 69 From: Mary Jo Granados MD PCP: Dr. Rigoberto Gould MD Status:REG ER Location: ED HPI - General General Date of Admission: 12/11/24 Date of Service: 12/11/24 Chief Complaint: Missed HD x 2, fatigue, malaise, N/V, dyspnea, increased edema/weight gain/orthopnea, cough. HPI Narrative The patient is a 69 y/o M w/ PMHx: Diabetes mellitus type II, HTN, HLD, HFrEF/ischemic cardiomyopathy, CAD, Pulmonary HTN, Ankylosing spondylitis, GERD w/ Hx GI bleed, Hx C. difficile diarrhea/colitis, ESRD on HD, Valvular Heart Disease, CAD status post CABG, Former tobacco use who presents to the [facility] ED on 12/11/24 with history of recently missing 2 sessions of HD and following then onset of reported URI type symptoms including mild dyspnea, worse with exertion, cough, sore throat with fatigue, malaise and persistent nausea and emesis noted to be waxing and waning with poor oral intake and decreased urine output as he notes he still makes urine with chronic stable orthopnea as well as chronic distal lower extremity swelling and pain with no recent fevers or chills nor any associated abdominal pain nor any abnormal looking emesis but given inability to maintain appropriate oral intake and GI losses prompted ED evaluation. He notes in the past when he has been sick and missed 2 dialysis sessions he is never had the issues he is having currently. He reports significant recent issues managing dry weight and notes that cardiology has altered his medications with recent addition of metolazone. He notes that he was also recently taken off of his beta-rufus therapy secondary to issues with low blood pressure with dialysis. Workup in the ED included T97.6, heart rate 79, BP 140/98, respiratory rate 18, 97% room air, CBC with WBC 9.1, hemoglobin 13, platelet 120 with lymphopenia, BMP with sodium 131, potassium 5.9, chloride 84, chest x-ray with congestion, EKG with atrial fibrillation rate controlled with no acute evidence of ischemia and no concern for peaked T waves. [facility] Medical History C. difficile diarrhea Anemia History of GI bleed Pure hypercholesterolemia Ischemic cardiomyopathy Essential hypertension Renal insufficiency Ankylosing spondylitis CAD (coronary artery disease) Overweight (BMI 25.0-29.9) Leg edema Leg swelling Acute systolic heart failure Bradycardia Biliary pleural effusion HTN (hypertension) Ventricular tachyarrhythmia Atherosclerosis of [place] coronary artery of [place] heart without angina pectoris Pulmonary HTN Cardiomyopathy Valvular heart disease NSTEMI (non-ST elevated myocardial infarction) CHF (congestive heart failure) Abscess of right foot Diabetes mellitus with neuropathy Gout DM2 (diabetes mellitus, type 2) Home Medications ???Medication ???Instructions ???Recorded ???Last Taken ???Type latanoprost 0.005 % eye drops 1 drp EACH EYE QHS 06/03/18 History melatonin 5 mg tablet 10 mg PO HS PRN Sleep 08/02/20 History loratadine 10 mg capsule 10 mg PO DAILY PRN allergy symptom s 10/24/21 12/10/24 History sevelamer carbonate 800 mg tablet 800 mg PO TID 05/30/22 12/10/24 H istory handicap placcard #1 ea 07/07/22 Unknown Rx aspirin 81 mg tablet,delayed 81 mg PO DAILY #90 tabs 04/23/24 0 12/10/24 Rx release (Adult Aspirin Regimen) bumetanide 2 mg tablet 2 mg PO DAILY FLUID #90 tabs 07/0912/10/24 Rx hydroxyzine HCl 25 mg tablet 25 mg PO Q6 PRN itch 10/28/2411/25 History insulin glargine 100 unit/mL (3 10 unit subcut QPM 10/28/24 Unknow n History mL) subcutaneous pen (Lantus Solostar U-100 Insulin) tadalafil 20 mg tablet 20 mg PO DAILY PRN sexual activity 10/28/24 Unknown History atorvastatin 40 mg tablet 40 mg PO DAILY 12/11/24 12/10/24 H istory benzonatate 100 mg capsule 100 mg PO TID PRN cough 12/11/24 0 12/10/24 History metolazone 5 mg tablet 5 mg PO DAILY 12/11/24 12/10/24 Hi story pantoprazole 40 mg tablet,delayed 40 mg PO BID 12/11/24 12/10/24 Hi story release trazodone 50 mg tablet 50 mg PO QHS 12/11/24 12/10/24 His tory vitamin B complex-vitamin C-folic 1 tab PO DAILY 12/11/24 12/10/24 History acid 0.8 mg tablet (Dialyvite 800) Allergy/AdvReac Type Severity Reaction Status Date / Time pregabalin (From Lyrica) Allergy Angioedema Verified 12/11/24 14:17 Family History Father CAD (coronary artery disease) Mother CAD (coronary artery disease) Surgical History History of cataract extraction hx f (more content not included)... Normal [facility] Hematocrit Auto (Bld) [Volum e fraction]Ordered By: [facility] on 12-11-2024 Hematocrit (Bld) [Volume fraction] 37.2 % Low 40-54 [facility] Hemoglobin measurementOrdere d By: [facility] on 12-11-2024 Hemoglobin (Bld) [Mass/Vol] 13.0 g/dL 13.0-16.5 [facility] Immature granulocytes/100 WB C Auto (Bld)Ordered By: [facility] on 12-11-2024 Immature granulocytes/100 WBC (Bld) 0.400 % 0.0-0.9 [facility] Comment on above: IG% - Immature Granu locytes (promyelocytes, myelocytes and metamyelocytes) > 1% indicates that a LEFT SHIFT is Present. Influenza virus A and B and SARS-CoV-2 (COVID-19) and Respiratory syncytial virus RNAOrdered By: [facility] on 12-11-2024 SARS-CoV-2 (COVID-19) RNA AMADOU+probe Ql (Unsp spec) [facility] L509.7001on 12-11-2024 Procalcitonin 1.39 ng/mL High <=0.10 [facility] Comment on above: Result Comment: Inte rpretation: <0.10-0.25 ng/mL: Antibiotic therapy discouraged. Bacterial infection unlikely. 0.25-0.50 ng/mL: Antibiotic therapy encouraged. Bacterial infection possible. >0.50 ng/mL: Antibiotic therapy strongly encouraged. Suggestive of presence of bacterial infection. PCT should always be interpreted in the clinical context of the patient. Therefore, clinicians should use the PCT results in conjunction with other laboratory findings and clinical signs of the patient. Performed By: #### L 509.7001 #### [facility] Laboratory [facility] [place], [address] Lymphocytes Auto (Unsp spec) [#/Vol]Ordered By: Rafa Felder on 12-11-2024 Lymphocytes (Bld) [#/Vol] 0.70 10*3/uL Low 0.83-4.51 [facility] Lymphocytes/100 WBC Auto (Un sp spec)Ordered By: Rafa Felder on 12-11-2024 Lymphocytes/100 WBC (Bld) 7.7 % Low 19-41 [facility] M100.678on 12-11-2024 M100.678 Pending SARS-CoV-2 (COVID 19) Negative INFLUENZA A Negative INFLUENZA B Negative RSV PCR Negative Normal [facility] Comment on above: Performed By: #### M 100.678 ####[facility] [id number] [place], [place], [id number] MCV (mean corpuscular volume ) determinationOrdered By: Rafa Felder on 12-11-2024 MCV (RBC) [Entitic vol] 92.8 fL 80-94 [facility] Magnesiumon 12-11-2024 Magnesium [Mass/Vol] 2.6 mg/dL High 1.5-2.2 [facility] Comment on above: Order Comment: Comme nts: May add to ED labsComments: may add to ED labs Performed By: #### L 501.080 #### [facility] Laboratory [address] [place], [place], [id number] Magnesium (Unsp spec) [Mass/ Vol]Ordered By: Mary Jo Granados on 12-11-2024 Magnesium [Mass/Vol] 2.6 mg/dL High 1.5-2.2 [facility] Magnesium measurement (mass/ volume)Ordered By: Mary Jo Granados on 12-11-2024 Magnesium (Unsp spec) [Mass/Vol] 2.6 mg/dL High 1.5-2.2 [facility] Mean corpuscular hemoglobin (MCH) determinationOrdered By: Rafa Felder on 12-11-2024 MCH (RBC) [Entitic mass] 32.4 pg High 27.0-32.0 [facility] Mean corpuscular hemoglobin concentration (MCHC) determinationOrdered By: Rafa Felder on 12-11-2024 MCHC (RBC) [Mass/Vol] 34.9 g/dL 32-36 [facility] Mean platelet volume determi nationOrdered By: Rafa Munizo on 12-11-2024 Platelet mean volume (Bld) [Entitic vol] 10.1 fL 6.2-12.0 [facility] Monocyte percentageOrdered B y: Rafa Felder on 12-11-2024 Monocytes/100 WBC (Bld) 13.0 % High 0-10 [facility] Neutrophil percentageOrdered By: Rafarima Munizo on 12-11-2024 Neutrophils/100 WBC (Bld) 77.3 % High 47-70 [facility] Nucleated red blood cell per centageOrdered By: Rafarima Munizo on 12-11-2024 Nucleated RBC/100 WBC (Bld) [Ratio] 0 % 0-5 [facility] Phosphoruson 12-11-2024 Phosphate [Mass/Vol] 12.7 mg/dL Invalid Interpretation Code 2.7-4.5 [facility] Comment on above: Order Comment: Comme nts: May add to ED labsComments: may add to ED labs Result Comment: Crit ical Result(s) Called MYRTLE at: 1758 by: MARGUERITE??Results read back by same. Critical Result(s) Called at: by:??Results read back by same. AMENDED REPORT 12/11/241812 PHOS previously reported as: 12.7 *H mg/dL Critical Result(s) Called MYRTLE at: 1758 by: MARGUERITE??Results read back by same. Performed By: #### L 501.080 #### [facility] Laboratory [address] [place], [address] Platelet countOrdered By: Crys rima Munzio on 12-11-2024 Platelets (Bld) [#/Vol] 120 10*3/uL Low 150-450 [facility] Potassium (Unsp spec) [Mass/ Vol]Ordered By: Rafa Felder on 12-11-2024 Potassium [Moles/Vol] 5.9 mmol/L High 3.3-5.1 [facility] Procalcitonin IA [Mass/Vol]O rdered By: Mary Jo Granados on 12-11-2024 Procalcitonin 1.39 ng/mL High <0.11 [facility] Comment on above: Interpretation:<0.10 -0.25 ng/mL: Antibiotic therapy discouraged. Bacterial infection unlikely.0.25-0.50 ng/mL: Antibiotic therapy encouraged. Bacterial infection possible.>0.50 ng/mL: Antibiotic therapy strongly encouraged. Suggestive of presence of bacterial infection.PCT should always be interpreted in the clinical context of the patient. Therefore, clinicians should use the PCT results in conjunction with other laboratory findings and clinical signs of the patient. Procalcitonin [Mass/volume] in Serum or Plasma by ImmunoassayOrdered By: Mary Jo Granados on 12-11-2024 Procalcitonin IA [Mass/Vol] 1.39 ng/mL High <0.11 [facility] RBC Auto (Bld) [#/Vol]Ordere d By: Rafa Felder on 12-11-2024 RBC (Bld) [#/Vol] 4.01 10*6/uL Low 4.6-6.2 [facility] Respiratory pathogens DNA an d RNA panel AMADOU+probe (Resp)Ordered By: [facility] on 12-11-2024 Respiratory Panel (PCR) [facility] Respiratory pathogens detect ion panel by molecular detection methodOrdered By: [facility] on 12-11-2024 Respiratory pathogens DNA and RNA panel AMADOU+probe (Resp) [facility] Serum creatinine measurement (mass/volume)Ordered By: Rafa Felder on 12-11-2024 Creatinine [Mass/Vol] 8.04 mg/dL High 0.70-1.20 [facility] Comment on above: Critical Result(s) Marianne ELI at: 1606 by: AMRGUERITE Results read back by same. Serum glucose measurement (m ass/volume)Ordered By: Rafa Felder on 12-11-2024 Glucose [Mass/Vol] 88 mg/dL 70-99 [facility] Serum or plasma calcium sneha urement (mass/volume)Ordered By: Rafa Felder on 12-11-2024 Calcium [Mass/Vol] 10.0 mg/dL 7.6-11.0 [facility] Serum or plasma urea nitroge n measurement (mass/volume)Ordered By: Rafa Felder on 12-11-2024 Urea nitrogen [Mass/Vol] 124 mg/dL High 4-19 [facility] Comment on above: Critical Result(s) Marianne ELI at: 1606 by: MARGUERITE Results read back by same. Serum phosphorus measurement Ordered By: Mary Jo Granados on 12-11-2024 Phosphorus Level 12.7 mg/dL High 2.7-4.5 [facility] Comment on above: Critical Result(s) Marianne IRAHETA at: 1758 by: MARGUERITE Results read back by same. Critical Result(s) Called at: by: Results read back by same.Previous reported result: 12.7 mg/dLEdited by: MARLON on 12/11/24:1812 AMENDED REPORT 12/11/241812 PHOS previously reported as: 12.7 *H mg/dL Critical Result(s) Called MYRTLE at: 1758 by: MARGUERITE Results read back by same. Sodium levelOrdered By: Rafa Felder on 12-11-2024 Sodium [Moles/Vol] 131 mmol/L Low 133-145 [facility] White blood cell (WBC) count Ordered By: Rafa Felder on 12-11-2024 WBC (Bld) [#/Vol] 9.1 10*3/uL 4.4-11.0 [facility] CNOVon 12-05-2024 CNOV Office Visit (FAMPWS ) -- MAURI QUINONES ([id number]) 1955 M Date Time Provider Department 12/05/24 1:20 PM [facility] visit today, we recorded the following information about you: Temperature Pulse Blood pressure Weight 97.3 degrees 85/minute 122/68 81.2 kg Alexus Mendez, SQL TE[employer]ER 12/05/2024 1:45 PM Signed This is a 69 year old male who presents today with: Patient presents with: Follow Up HISTORY OF PRESENT ILLNESS: Mauri Quinones is a 69 year old male. Patient presents with: Follow Up Cough is getting better. Having trouble sleeping at night- takes 2 melatonin and wakes up an hour Tired. No H/A No fever or chills Always body aches No SOB BSS running 119- 131, not taking lantus PAST MEDICAL HISTORY: PAST MEDICAL HISTORY Diagnosis Date Acute on chronic diastolic congestive heart failure ([facility]) 07/14/2018 GARRET (acute kidney injury) 03/24/2019 GARRET (acute kidney injury) 03/24/2019 Ankylosing spondylitis ([facility]) CAD (coronary artery disease) Cellulitis Chronic combined systolic and diastolic CHF (congestive heart failure) ([facility]) 03/24/2019 CKD (chronic kidney disease) stage 3, GFR 30-59 ml/min ([facility]) 03/24/2019 Constipation Diabetes ([facility]) Gout High phosphate levels 03/24/2019 History of coronary artery bypass graft 04/18/2019 04/10/17 CARTY to LAD, SVG to PDA, SVG to OM Hx of fracture multiple bones Hyperkalemia 03/24/2019 Hypoalbuminemia 03/24/2019 Hyponatremia 03/24/2019 Hypoxia 03/24/2019 Ischemic cardiomyopathy 04/18/2019 Echocardiogram 01/10/19 Dr. Nunez: Dilated left ventricle, left ventricular ejection fraction 40%, mild to moderate systolic dysfunction, moderate concentric LVH, dilated left and right atria. Mild mitral valve thickening with papillary muscle dysfunction, mild mitral valve insufficiency, tricuspid valve insufficiency, aortic valve insufficiency, pulmonic valve insufficiency. Aortic valve calcifi NSTEMI (non-ST elevated myocardial infarction) ([facility]) 03/12/2017 [facility] admit Osteoarthritis Transition of care performed with sharing of clinical summary 04/08/2019 Admit [facility] 03/21/19-03/22/19 Discharge diagnoses chronic kidney disease with worsening creatinine, acute kidney injury Hypokalemia Toxic encephalopathy secondary to Flexeril overusage Type 2 diabetes Ischemic cardiomyopathy Coronary artery disease Ligamental cervical neck strain and acute Pulmonary hypertension Hypertension Pyuria Preadmit: to [facility] ED with slurred speech, lethargy. PAST SURGICAL HISTORY Procedure Laterality Date ARTHRP ACETBLR/PROX FEM PROSTC AGRFT/ALGRFT Right 2019 Dr Peguero CORONARY ARTERY BYPASS GRAFT 04/12/2017 x 3 FEMUR RIGHT OP SURGERY Right Repair of fracture with hardward HIP SURGERY HX Right pin KNEE ARTHROSCOPY Left x2 KNEE SURGERY HX Right TKR, right, arthoscopy x3 PAST SURGICAL HISTORY OF 09/07/2017 08/15/17 fx radius in 2 places; plate and screws.Plate and screws 09/07/17 [facility] TOE SURGERY HX Right ALLERGIES Lyrica [Pregabalin] MEDICATIONS Current Outpatient Medications Medication Sig ammonium lactate (LAC-HYDRIN) 12 % cream Apply to affected area as needed. LANTUS SOLOSTAR U-100 INSULIN 100 unit/mL (3 mL) Inject 10 Units subcutaneously daily at bedtime. (Patient not taking: Reported on 12/05/2024) hydrOXYzine HCl (ATARAX) 25 mg tablet Take 1 tablet by mouth every 6 hours as needed for itching/rash. Tadalafil (CIALIS) 20 mg tablet Take 1 tablet by mouth once daily as needed. Do not take at same time as doxazosin pantoprazole (PROTONIX) 40 mg tablet Take 1 tablet by mouth every morning. Insulin [place], Disposable, (BD ULTRA-FINE GOLDY PEN NEEDLE) 32 gauge x Use one needle for each dose. once/day. atorvastatin (LIPITOR) 40 mg tablet Take 1 tablet by mouth daily at bedtime. bumetanide (BUMEX) 2 mg tablet Take 1 tablet by mouth every morning. carvedilol (COREG) 12.5 mg tablet Take 1 tablet by mouth two times a day with meals. loratadine (CLARITIN) 10 mg tablet Take 1 tablet by mouth once daily. aspirin, enteric coated (ASPIRIN, ENTERIC COATED) 81 mg EC tablet Take 81 mg by mouth once daily. Pt to call and clarify if needs to stop sevelamer carbonate (RENVELA) 800 mg tablet Take 800 mg by mouth three times daily with meals. B Complex-Vitamin C-Folic Acid (NEPHRO-SAVANAH) 0.8 mg tab Take 1 tablet by mouth every morning. melatonin 5 mg tablet Take 10 mg by mouth at bedtime as needed for for insomnia. acetaminophen (TYLENOL EX STR RAPID RELEASE ORAL) Take 1-2 capsules by mouth every 6 hours as needed (pain). doxazosin (CARDURA) 4 mg tablet Take 0.5 tablets by mouth twice daily. latanoprost (XALATAN) 0.005 % ophthalmic solution Use 1 Drop in both eyes daily at bedtime. into affected eye(s). No current facility-administered medications for this visit. FAMILY HISTORY (more content not included)... Normal [facility] Bacteria Fld Culton 12-04-19 25 Bacteria identified Cx Nom (Body fld) CULTURE, BODY FLD: No growth Normal [facility] Comment on above: Performed By: #### 6 11-4 ####[facility] LABCLIA [id number] [address] Guidance for arthrocentesis of Major jointon 12-03-2024 IMPRESSION: Successful right hip joint injection. Crts: CARMELA Transcribe Date/Time: Dec 03 2024 3:23P Dictated by : OSMAN JORDAN DO This examination was interpreted and the report reviewed and electronically signed by: OSMAN JORDAN DO on Dec 03 2024 3:24PM [facility] * * *Final Report* * * DATE OF EXAM: Dec 03 2024 10:36AM MDX 5101 - XR HIP ASPIRATION RT / PROCEDURE REASON: multiple diagnoses * * * * Physician Interpretation * * * * PROCEDURE NOTE FOR RIGHT HIP INJECTION UNDER FLUOROSCOPY, 12/03/2024 10:36 AM HISTORY: Pain of right hip Status post right hip replacement TECHNIQUE: Images were stored in a permanent archive. Informed consent was obtained from the patient. Questions were answered. Standard time out was performed. Single spot film image was stored in a permanent archive. Medications used: Synovial fluid analysis and culture orders placed Fluoroscopic Radiation Summary: Plane A, Air Kerma: 6.0 mGy Dose Area Product (DAP): 3161.0 mGy*cm2 Fluoro time: 0:48 min:sec Images: Single spot film image obtained. Images were stored in a permanent archive. Using aseptic technique, 10 cc 1% lidocaine for local anesthesia, and fluoroscopic guidance, a 20-gauge spinal needle was entered into the right hip joint from an anterolateral approach. A small amount fluid approximately 1 cc was obtained Patient tolerated the procedure well and left the department in stable condition. [facility] Provider, Phyllis Camp - 12/03/2024 * * *Final Report* * * DATE OF EXAM: Dec 03 2024 10:36AM MDX 5101 - XR HIP ASPIRATION RT / PROCEDURE REASON: multiple diagnoses * * * * Physician Interpretation * * * * PROCEDURE NOTE FOR RIGHT HIP INJECTION UNDER FLUOROSCOPY, 12/03/2024 10:36 AM HISTORY: Pain of right hip Status post right hip replacement TECHNIQUE: Images were stored in a permanent archive. Informed consent was obtained from the patient. Questions were answered. Standard time out was performed. Single spot film image was stored in a permanent archive. Medications used: Synovial fluid analysis and culture orders placed Fluoroscopic Radiation Summary: Plane A, Air Kerma: 6.0 mGy Dose Area Product (DAP): 3161.0 mGy*cm2 Fluoro time: 0:48 min:sec Images: Single spot film image obtained. Images were stored in a permanent archive. Using aseptic technique, 10 cc 1% lidocaine for local anesthesia, and fluoroscopic guidance, a 20-gauge spinal needle was entered into the right hip joint from an anterolateral approach. A small amount fluid approximately 1 cc was obtained Patient tolerated the procedure well and left the department in stable condition. IMPRESSION IMPRESSION: Successful right hip joint injection. Crts: PSCLeslye Transcribe Date/Time: Dec 03 2024 3:23P Dictated by : OSMAN JORDAN DO This examination was interpreted and the report reviewed and electronically signed by: OSMAN JORDAN DO on Dec 03 2024 3:24PM EST [facility] Radiology Study observation (narrative) [facility] Guidance for arthrocentesis of Major jointOrdered By: [facility] Provider on 12-03-2024 [facility] SYNOVIAL FLUID MANUAL DIFFon 12-03-2024 DIF TTL, SYNOVIAL FLUID 100 cells counted Normal [facility] Comment on above: Order Comment: Speci men Type: FLUID SPECIMENOrdering Facility: [facility] Address: [address] [place] [address] Performed By: #### L [id number], RTSYNF ####[facility] LABORATORYCLIA [id number] [place] [id number] [facility]#### SFCRID ####[facility] LABORATORYCLIA [id number] [place] [id number] [facility] LABCLIA [id number] [facility] [address] [place] [address] [place] MONO%, SF 3 Normal [facility] Comment on above: Order Comment: Speci men Type: FLUID SPECIMENOrdering Facility: [facility] Address: [address] [place] [address] Performed By: #### L [id number], RTSYNF ####[facility] LABORATORYCLIA [id number] [place] [address] [facility]#### SFCRID ####[facility] LABORATORYCLIA [id number] [place], [place] [id number] [place] [address] LABCLIA [id number] [place] [address] [place] NEUT% 97 High 0-<25 [facility] Comment on above: Order Comment: Speci men Type: FLUID SPECIMENOrdering Facility: [facility] Address: [address] [place] [address] Performed By: #### L [id number], RTSYNF ####[facility] LABORATORYCLIA [id number] [place] [address] [place]#### SFCRID ####[facility]ORATORYCLIA [id number] [place], [place] [id number] [place] [address] LABCLIA [id number] [place] [id number] [place] SYNOVIAL FLUID, CRYSTAL ID/P ATHOLOGIST INTERPRETATIONon 12-03-2024 CRYSTAL PRELIM, SF PRELIMINARY REPORT N o diagnostic crystals seen. SEE FINAL SF PATH REVIEW Normal [facility] Comment on above: Order Comment: Speci men Type: FLUID SPECIMENOrdering Facility: [facility] Address: [address] [place] [address] Performed By: #### L [id number], RTSYNF ####[facility] LABORATORYCLIA [id number] [place] [address] [place]#### SFCRID ####[facility] LABORATORYCLIA [id number] [place], [place] [id number] [place] [address] OF [facility] LABCLIA [id number] [place] [id number] [place] CRYSTAL REVIEW Reviewed by DO Lisa Torres [facility] Comment on above: Order Comment: Speci men Type: FLUID SPECIMENOrdering Facility: [facility] Address: [address] [place] [address] Performed By: #### L [id number], RTSYNF ####ADAM LABORATORYCLIA [id number] [place] [address] [place]#### SFCRID ####ADAM LABORATORYCLIA [id number] [address] STATES OF [facility] LABCLIA [id number] [place] [address] [place] Crystals LM Nom (Syn fld) None seen Normal None seen [facility] Comment on above: Order Comment: Speci men Type: FLUID SPECIMENOrdering Facility: [facility] Address: [address] [place] [address] Performed By: #### L [id number], RTSYNF ####ADAM LABORATORYCLIA [id number] [place] [address] [place]#### SFCRID ####ADAM LABORATORYCLIA [id number] [place] [address] [place] [facility] LAB[facility] [id number] [place] [id number] [place] SYNOVIAL FLUID, ROUTINEon Clarity (Unsp spec) Slightly Cloudy Abnormal Clear [facility] Comment on above: Order Comment: Speci men Type: FLUID SPECIMENOrdering Facility: [facility] Address: [address] [place] [address] Performed By: #### L [id number], RTSYNF ####ADAM LABORATORYCLIA [id number] [place] [address] [place]#### SFCRID ####ADAM LABORATORYCLIA [id number] [place] [address] [place] [facility] LABCLIA [id number] [place] [address] [place] Color (Syn fld) Slightly bloody Abnormal Yellow [facility] Comment on above: Order Comment: Speci men Type: FLUID SPECIMENOrdering Facility: [facility] Address: [facility] [place] [address] Performed By: #### L [id number], RTSYNF ####ADAM LABORATORYCLIA [id number] [place] [address] [place]#### SFCRID ####ADAM LABORATORYCLIA [id number] [address] STATES [facility] LABCLIA [id number] [place] [address] [place] RBC Manual cnt (Syn fld) [#/Vol] [id number] /uL High <2000 [facility] Comment on above: Order Comment: Speci men Type: FLUID SPECIMENOrdering Facility: [facility] Address: [address] [place] [address] Performed By: #### L [id number], RTSYNF ####ADAM LABORATORYCLIA [id number] [place] [address] [place]#### SFCRID ####ADAM LABORATORYCLIA [id number] [place], [place] [id number] [place] [address] STATES OF [facility] LABCLIA [id number] [place] [address] [place] Specimen source Nom (Unsp spec) Hip, Right Normal [facility] Comment on above: Order Comment: Speci men Type: FLUID SPECIMENOrdering Facility: [facility] Address: [address] [place] [address] Performed By: #### L [id number], RTSYNF ####ADAM LABORATORYCLIA [id number] [place] [address] [place]#### SFCRID ####ADAM LABORATORYCLIA [id number] [place] [address] [facility] LABCLIA [id number] [address] STATES OF [place] WBC Manual cnt (Syn fld) [#/Vol] 5730 /uL High 0-200 [facility] Comment on above: Order Comment: Speci men Type: FLUID SPECIMENOrdering Facility: [facility] Address: [address] [place] [address] Performed By: #### L [id number], RTSYNF ####ADAM LABORATORYCLIA [id number] [address]#### SFCRID ####ADAM LABORATORYCLIA [id number] [address] LABCLIA [id number] [address] OF [facility] XR HIP ASPIRATION RTon 12-03 XR HIP ASPIRATION RT * * *Final Report* * * DATE OF EXAM: Dec 03 2024 10:36AM MDX 5101 - XR HIP ASPIRATION RT / PROCEDURE REASON: multiple diagnoses * * * * Physician Interpretation * * * * PROCEDURE NOTE FOR RIGHT HIP INJECTION UNDER FLUOROSCOPY, 12/03/2024 10:36 AM HISTORY: Pain of right hip Status post right hip replacement TECHNIQUE: Images were stored in a permanent archive. Informed consent was obtained from the patient. Questions were answered. Standard time out was performed. Single spot film image was stored in a permanent archive. Medications used: Synovial fluid analysis and culture orders placed Fluoroscopic Radiation Summary: Plane A, Air Kerma: 6.0 mGy Dose Area Product (DAP): 3161.0 mGy*cm2 Fluoro time: 0:48 min:sec Images: Single spot film image obtained. Images were stored in a permanent archive. Using aseptic technique, 10 cc 1% lidocaine for local anesthesia, and fluoroscopic guidance, a 20-gauge spinal needle was entered into the right hip joint from an anterolateral approach. A small amount fluid approximately 1 cc was obtained Patient tolerated the procedure well and left the department in stable condition. IMPRESSION: Successful right hip joint injection. Crts: CARMELA Transcribe Date/Time: Dec 03 2024 3:23P Dictated by : OSMAN JORDAN DO This examination was interpreted and the report reviewed and electronically signed by: OSMAN JORDAN DO on Dec 03 2024 3:24PM EST [id number] Normal [facility] Bone 3 Phase Viewson IMPRESSION: * Right hip periprosthetic uptake at the level of the greater trochanter on the delayed phase images, suggesting stress reaction. Follow-up evaluation, as clinically indicated. No abnormal three-phase increased uptake. * Degenerative appearing changes at the left hip and knee joints. Crts: CARMELA Transcribe Date/Time: Nov 27 2024 7:19A Dictated by : PHUONG CORDOVA MD This examination was interpreted and the report reviewed and electronically signed by: PHUONG CORDOVA MD on Nov 27 2024 7:28AM EST [facility] * * *Final Report* * * DATE OF EXAM: Nov 26 2024 2:14PM [facility] 0009 - [place] BONE 3 PHASE / PROCEDURE REASON: M25.551-Pain of right hip * * * * Physician Interpretation * * * * THREE PHASE BONE SCAN CLINICAL HISTORY: Right hip pain TECHNIQUE: 21.6 mCi 99mTc MDP IV. Immediate blood flow, blood pool, and delayed images 3-4 hours post injection of the hips were obtained. RESULT: Flow images are somewhat suboptimal due to the count density. Blood pool images demonstrate slight uptake at the level of the right greater trochanter on the posterior image Delayed images: Evaluation slightly limited secondary to the persistent soft tissue uptake. At least moderate increased uptake at the level of the right greater trochanter on the posterior and lateral images. Minimal uptake at the femoral stem, and slight asymmetric increased uptake at the caudal aspect of the acetabulum also on the posterior image. Mild diffuse increased uptake at the level of the right tibial plateau is nonspecific, favored to be secondary to stress reaction. Mild uptake at the left hip joint. Moderate focal uptake at the level of the right knee cannot be well localized. [facility] Provider, Phyllis Camp - 11/27/2024 * * *Final Report* * * DATE OF EXAM: Nov 26 2024 2:14PM [facility] 000[facility] - [place] BONE 3 PHASE / PROCEDURE REASON: M25.551-Pain of right hip * * * * Physician Interpretation * * * * THREE PHASE BONE SCAN CLINICAL HISTORY: Right hip pain TECHNIQUE: 21.6 mCi 99mTc MDP IV. Immediate blood flow, blood pool, and delayed images 3-4 hours post injection of the hips were obtained. RESULT: Flow images are somewhat suboptimal due to the count density. Blood pool images demonstrate slight uptake at the level of the right greater trochanter on the posterior image Delayed images: Evaluation slightly limited secondary to the persistent soft tissue uptake. At least moderate increased uptake at the level of the right greater trochanter on the posterior and lateral images. Minimal uptake at the femoral stem, and slight asymmetric increased uptake at the caudal aspect of the acetabulum also on the posterior image. Mild diffuse increased uptake at the level of the right tibial plateau is nonspecific, favored to be secondary to stress reaction. Mild uptake at the left hip joint. Moderate focal uptake at the level of the right knee cannot be well localized. IMPRESSION IMPRESSION: * Right hip periprosthetic uptake at the level of the greater trochanter on the delayed phase images, suggesting stress reaction. Follow-up evaluation, as clinically indicated. No abnormal three-phase increased uptake. * Degenerative appearing changes at the left hip and knee joints. Crts: [facility] Transcribe Date/Time: Nov 27 2024 7:19A Dictated by : PHUONG CORDOVA MD This examination was interpreted and the report reviewed and electronically signed by: PHUONG CORDOVA MD on Nov 27 2024 7:28AM [facility] Bone 3 Phase ViewsOrdered By: [facility] Provider on 11-27-2024 [facility] BONE 3 PHASEon 11-26-2024 [place] BONE 3 PHASE * * *Final Report* * * DATE OF EXAM: Nov 26 2024 2:14PM [facility] - [place] BONE 3 PHASE / PROCEDURE REASON: M25.551-Pain of right hip * * * * Physician Interpretation * * * * THREE PHASE BONE SCAN CLINICAL HISTORY: Right hip pain TECHNIQUE: 21.6 mCi 99mTc MDP IV. Immediate blood flow, blood pool, and delayed images 3-4 hours post injection of the hips were obtained. RESULT: Flow images are somewhat suboptimal due to the count density. Blood pool images demonstrate slight uptake at the level of the right greater trochanter on the posterior image Delayed images: Evaluation slightly limited secondary to the persistent soft tissue uptake. At least moderate increased uptake at the level of the right greater trochanter on the posterior and lateral images. Minimal uptake at the femoral stem, and slight asymmetric increased uptake at the caudal aspect of the acetabulum also on the posterior image. Mild diffuse increased uptake at the level of the right tibial plateau is nonspecific, favored to be secondary to stress reaction. Mild uptake at the left hip joint. Moderate focal uptake at the level of the right knee cannot be well localized. IMPRESSION: * Right hip periprosthetic uptake at the level of the greater trochanter on the delayed phase images, suggesting stress reaction. Follow-up evaluation, as clinically indicated. No abnormal three-phase increased uptake. * Degenerative appearing changes at the left hip and knee joints. Crts: CARMELA Transcribe Date/Time: Nov 27 2024 7:19A Dictated by : PHUONG CORDOVA MD This examination was interpreted and the report reviewed and electronically signed by: PHUONG CORDOVA MD on Nov 27 2024 7:28AM EST [id number] [facility] Bone 3 Phase Viewson 0 Radiology Study observation (narrative) [facility] Aniket 11-20-2024 JOCELYNN Telephone (MATTNA) -- MAURI QUINONES ([id number]) 1955 M Date Time Provider Department 11/20/24 NUPUR DE LA ROSA During your visit today, we recorded the following information about you: Lori Pino 11/20/2024 9:36 AM Signed Patient called in, he got the results of his lab work and was curious what thought, please advise. Patient can be reached at #[phone] Yessenia Hewitt PA-C 11/21/2024 1:02 PM Signed Discussed with dr. De La Rosa. Labs are only slightly elevated. He is recommending aspiration with fluid analysis. Orders placed. PASTOR Dias Kelli, BISMARK 11/21/2024 1:08 PM Signed Spoke with patient and relayed message. Patient verbalized understanding. Please send to radiology for scheduling (Not Tuesdays and due to dialysis) Aleshia Vázquez 11/21/2024 1:47 PM Signed Forwarded to Radiology for scheduling Allergies As of Date: 11/20/2024 Noted Allergy Reaction LYRICA (PREGABALIN) 03/23/2017 7 - Swelling Date Reviewed: 11/14/2024 Reviewed by: Oralia Castro MA - Fully Assessed Reason for Visit: Results [95] Primary Visit Diagnosis:Pain of right hip [M25.551] Other Visit Diagnosis:Status post right hip replacement [Z96.641] Order(s):SYNOVIAL FLUID, ROUTINE [SQRTSYN] Order #: [id number]. #:[id number] SYNOVIAL FLUID, CRYSTAL ID/PATHOLOGIST INTERPRETATION [SQSFCRID] Order #: [id number] FUTURE BACTERIAL CULTURE AND GRAM STAIN, STERILE BODY FLUID [SQBFCUL] Order #: [id number]. #:[id number] IMAGING GUIDED HIP ASPIRATION RIGHT [5303147] Order #: [id number] FUTURE SYNOVIAL FLUID MANUAL DIFF [QXQ8075] Reflex Order#: [id number] (Ord#:[id number])Spec. #:[id number] SYNOVIAL FLUID, CRYSTAL ID/PATHOLOGIST INTERPRETATION [SQSFCRID] Reflex Order#: [id number] (Ord#:[id number])Spec. #:[id number] Prescriptions as of 12/04/2024 - methylPREDNISolone (MEDROL, CHLOE,) 4 mg Dose-Pack Follow dosing instructions, take with food. - ammonium lactate (LAC-HYDRIN) 12 % cream Apply to affected area as needed. - LANTUS SOLOSTAR U-100 INSULIN 100 unit/mL (3 mL) Inject 10 Units subcutaneously daily at bedtime. - hydrOXYzine HCl (ATARAX) 25 mg tablet Take 1 tablet by mouth every 6 hours as needed for itching/rash. - Tadalafil (CIALIS) 20 mg tablet Take 1 tablet by mouth once daily as needed. Do not take at same time as doxazosin - pantoprazole DR (PROTONIX) 40 mg tablet Take 1 tablet by mouth every morning. - Insulin [place], Disposable, (BD ULTRA-FINE GOLDY PEN NEEDLE) 32 gauge x 5/32 Use one needle for each dose. once/day. - atorvastatin (LIPITOR) 40 mg tablet Take 1 tablet by mouth daily at bedtime. - bumetanide (BUMEX) 2 mg tablet Take 1 tablet by mouth every morning. - carvedilol (COREG) 12.5 mg tablet Take 1 tablet by mouth two times a day with meals. - loratadine (CLARITIN) 10 mg tablet Take 1 tablet by mouth once daily. - aspirin, enteric coated (ASPIRIN, ENTERIC COATED) 81 mg EC tablet Take 81 mg by mouth once daily. Pt to call and clarify if needs to stop - sevelamer carbonate (RENVELA) 800 mg tablet Take 800 mg by mouth three times daily with meals. - B Complex-Vitamin C-Folic Acid (NEPHRO-SAVANAH) 0.8 mg tab Take 1 tablet by mouth every morning. - melatonin 5 mg tablet Take 10 mg by mouth at bedtime as needed for for insomnia. - acetaminophen (TYLENOL EX STR RAPID RELEASE ORAL) Take 1-2 capsules by mouth every 6 hours as needed (pain). - doxazosin (CARDURA) 4 mg tablet Take 0.5 tablets by mouth twice daily. - latanoprost (XALATAN) 0.005 % ophthalmic solution Use 1 Drop in both eyes daily at bedtime. into affected eye(s). 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] 09/24/2017 Hypertension, essential [I10] 10/23/2017 Lower leg edema [R60.0] 01/22/2018 12/02/2021 Chronic left hip pain [M25.552, G89.29] 03/04/2018 10/30/2022 Anemia of chronic renal failure, stage 3 (moder*03/05/2018 12/02/2021 Acute on chronic diastolic congestive heart zane*07/14/2018 Recurrent right pleural effusion [J90] 07/14/2018 12/02/2021 PVD (peripheral vascular disease) (HCC) [I73.9] 07/16/2018 Altered mental status [R41.82] 03/24/2019 07/05/2019 UTI (urinary tract infection) [N39.0] 03/24/2019 12/02/2021 Chronic combined systolic and diastolic CHF (co*03/24/2019 Hyperkalemia [E87.5] 03/24/2019 12/02/2021 Hypoxia [R09.02] 03/24/2019 12/02/2021 Hypoalbuminemia (more content not included)... [facility] ([id number]) 1955 Date Time Provider Department 11/20/24 RIGOBERTO GOULD [facility] During your visit today, we recorded the following information about you: Farrah Hastings, BISMARK 11/20/2024 12:50 PM Signed Bernice WEINBERG from [facility] calls and states that they will be sending out a home health aide to help patient 3 hours a week. Bernice asking if PCP willing to follow orders? Please review and advise, BISMARK Garcia William J, MD 11/20/2024 1:54 PM Signed Bryce Perea RN 11/20/2024 4:42 PM Signed Called and left a detailed voicemail notifying Bernice WEINBERG from [facility] of providers message. Clinic phone number was left in case she had any questions. Bryce Landin RN Allergies As of Date: 11/20/2024 Noted Allergy Reaction LYRICA (PREGABALIN) 03/23/2017 7 - Swelling Date Reviewed: 11/14/2024 Reviewed by: Oralia Castro MA - Fully Assessed Reason for Visit: Home Health Orders [Other] Prescriptions as of 11/20/2024 - ammonium lactate (LAC-HYDRIN) 12 % cream Apply to affected area as needed. - LANTUS SOLOSTAR U-100 INSULIN 100 unit/mL (3 mL) Inject 10 Units subcutaneously daily at bedtime. - hydrOXYzine HCl (ATARAX) 25 mg tablet Take 1 tablet by mouth every 6 hours as needed for itching/rash. - Tadalafil (CIALIS) 20 mg tablet Take 1 tablet by mouth once daily as needed. Do not take at same time as doxazosin - pantoprazole DR (PROTONIX) 40 mg tablet Take 1 tablet by mouth every morning. - Insulin [place], Disposable, (BD ULTRA-FINE GOLDY PEN NEEDLE) 32 gauge x Use one needle for each dose. once/day. - atorvastatin (LIPITOR) 40 mg tablet Take 1 tablet by mouth daily at bedtime. - bumetanide (BUMEX) 2 mg tablet Take 1 tablet by mouth every morning. - carvedilol (COREG) 12.5 mg tablet Take 1 tablet by mouth two times a day with meals. - loratadine (CLARITIN) 10 mg tablet Take 1 tablet by mouth once daily. - aspirin, enteric coated (ASPIRIN, ENTERIC COATED) 81 mg EC tablet Take 81 mg by mouth once daily. Pt to call and clarify if needs to stop - sevelamer carbonate (RENVELA) 800 mg tablet Take 800 mg by mouth three times daily with meals. - B Complex-Vitamin C-Folic Acid (NEPHRO-SAVANAH) 0.8 mg tab Take 1 tablet by mouth every morning. - melatonin 5 mg tablet Take 10 mg by mouth at bedtime as needed for for insomnia. - acetaminophen (TYLENOL EX STR RAPID RELEASE ORAL) Take 1-2 capsules by mouth every 6 hours as needed (pain). - doxazosin (CARDURA) 4 mg tablet Take 0.5 tablets by mouth twice daily. - latanoprost (XALATAN) 0.005 % ophthalmic solution Use 1 Drop in both eyes daily at bedtime. into affected eye(s). 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] 09/24/2017 Hypertension, essential [I10] 10/23/2017 Lower leg edema [R60.0] 01/22/2018 12/02/2021 Chronic left hip pain [M25.552, G89.29] 03/04/2018 10/30/2022 Anemia of chronic renal failure, stage 3 (moder*03/05/2018 12/02/2021 Acute on chronic diastolic congestive heart zane*07/14/2018 Recurrent right pleural effusion [J90] 07/14/2018 12/02/2021 PVD (peripheral vascular disease) (HCC) [I73.9] 07/16/2018 Altered mental status [R41.82] 03/24/2019 07/05/2019 UTI (urinary tract infection) [N39.0] 03/24/2019 12/02/2021 Chronic combined systolic and diastolic CHF (co*03/24/2019 Hyperkalemia [E87.5] 03/24/2019 12/02/2021 Hypoxia [R09.02] 03/24/2019 12/02/2021 Hypoalbuminemia [E88.09] 03/24/2019 12/02/2021 GARRET (acute kidney injury) (HCC) [N17.9] 03/24/2019 12/02/2021 CKD (chronic kidney disease) stage 3, GFR 30-59*03/24/2019 04/18/2019 High phosphate levels [E83.39] 03/24/2019 12/02/2021 Hyponatremia [E87.1] 03/24/2019 12/02/2021 Delirium [R41.0] 03/29/2019 12/02/2021 Malnutrition of moderate degree (HCC) [E44.0] 04/01/2019 12/02/2021 Transition of care performed with sharing of cl*04/08/2019 04/18/2019 Chronic kidney disease, stage IV (severe) (HCC)*04/18/2019 12/02/2021 Ischemic cardiomyopathy [I25.5] 04/18/2019 Sprain of ligament of cervical spine region [S1*04/18/2019 12/02/2021 History of coronary artery bypass graft [Z95.1] 04/18/2019 History of ventricular tachycardia [Z86.79] 04/18/2019 Proliferative retinopathy of both eyes associat*06/17/2019 Flaccid neuropathic bladder, 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 Normal [facility] C-REACTIVE PROTEINon 025 CRP [Mass/Vol] 1.8 mg/dL High [facility]/dL [facility] CBC W Auto Differential pane l (Bld)on 11-14-2024 Basophils (Bld) [#/Vol] [facility] Basophils/100 WBC (Bld) 0.3 % [facility] Differential cell count method Nom (Bld) Auto [facility] Eosinophils (Bld) [#/Vol] 0.12 10*3/uL [facility] Eosinophils/100 WBC (Bld) 1.9 % [facility] Erythrocyte distribution width (RBC) [Ratio] 16.4 % High 11.5 - 15.0 % [facility] Hematocrit (Bld) [Volume fraction] 33.1 % Low 39.0 - 51.0 % [facility] Hemoglobin (Bld) [Mass/Vol] 10.5 g/dL Low 13.0 - 17.0 g/dL [facility] Immature granulocytes (Bld) [#/Vol] [facility] Immature granulocytes/100 WBC (Bld) 0.3 % [facility] Interpretation and review of laboratory results Abnormal [facility] Lymphocytes (Bld) [#/Vol] 0.64 10*3/uL Low [facility] Lymphocytes/100 WBC (Bld) 10.3 % [facility] MCH (RBC) [Entitic mass] 30.7 pg 26.0 - 34.0 pg [facility] MCHC (RBC) [Mass/Vol] 31.7 g/dL 30.5 - 36.0 g/dL [facility] MCV (RBC) [Entitic vol] 96.8 fL 80.0 - 100.0 fL [facility] Monocytes (Bld) [#/Vol] 0.66 10*3/uL NINF [facility] Monocytes/100 WBC (Bld) 10.6 % [facility] Neutrophils (Bld) [#/Vol] 4.78 10*3/uL [facility] Neutrophils/100 WBC (Bld) 76.6 % [facility] Nucleated RBC (Bld) [#/Vol] NINF [facility] Nucleated RBC/100 WBC (Bld) [Ratio] 0 % /100 WBC [facility] Platelet mean volume (Bld) [Entitic vol] 9.9 fL 9.0 - 12.7 fL [facility] Platelets (Bld) [#/Vol] 115 10*3/uL Low [facility] Comment on above: No clot detected. RBC (Bld) [#/Vol] 3.42 10*6/uL Low 4.20 - 6.0 0 m/uL [facility] WBC (Bld) [#/Vol] 6.24 10*3/uL [facility] Basophils (Bld) [#/Vol] 10*3/uL Normal <0.11 [facility] Comment on above: Order Comment: Speci men Type: BLOOD SPECIMENOrdering Facility: [facility] Address: [address] [place] [address] Performed By: #### 5 7021-8 ####[facility]ATORYCLIA [id number] [place] [address] [place] Basophils/100 WBC (Bld) 0.3 % Normal [facility] Comment on above: Order Comment: Speci men Type: BLOOD SPECIMENOrdering Facility: [facility] Address: [address] [place] [address] Performed By: #### 5 7021-8 ####[facility] LABORATORYCLIA [id number] [address] [place] Differential cell count method Nom (Bld) Auto Normal [facility] Comment on above: Order Comment: Speci men Type: BLOOD SPECIMENOrdering Facility: [facility] Address: [address] [place] [address] Performed By: #### 5 7021-8 ####ADAM LABORATORYCLIA [id number] [place] [address] [place] Eosinophils (Bld) [#/Vol] 0.12 10*3/uL Normal <0.46 [facility] Comment on above: Order Comment: Speci men Type: BLOOD SPECIMENOrdering Facility: [facility] Address: [address] [place] [address] Performed By: #### 5 7021-8 ####ADAM LABORATORYCLIA [id number] [place] [address] [place] Eosinophils/100 WBC (Bld) 1.9 % Normal [facility] Comment on above: Order Comment: Speci men Type: BLOOD SPECIMENOrdering Facility: [facility] Address: [address] [place] [address] Performed By: #### 5 7021-8 ####ADAM LABORATORYCLIA [id number] [address] [place] Erythrocyte distribution width (RBC) [Ratio] 16.4 % High 11.5-15.0 [facility] Comment on above: Order Comment: Speci men Type: BLOOD SPECIMENOrdering Facility: [facility] Address: [address] [place] [address] Performed By: #### 5 7021-8 ####ADAM LABORATORYCLIA [id number] [address] [place] Hematocrit (Bld) [Volume fraction] 33.1 % Low 39.0-51.0 [facility] Comment on above: Order Comment: Speci men Type: BLOOD SPECIMENOrdering Facility: [facility] Address: [address] [place] [address] Performed By: #### 5 7021-8 ####ADAM LABORATORYCLIA [id number] [place] [address] [place] Hemoglobin (Bld) [Mass/Vol] 10.5 g/dL Low 13.0-17.0 [facility] Comment on above: Order Comment: Speci men Type: BLOOD SPECIMENOrdering Facility: [facility] Address: [address] [place] [address] Performed By: #### 5 7021-8 ####ADAM LABORATORYCLIA [id number] [place] [address] [place] Immature granulocytes (Bld) [#/Vol] 10*3/uL Normal <0.10 [facility] Comment on above: Order Comment: Speci men Type: BLOOD SPECIMENOrdering Facility: [facility] Address: [address] [place] [address] Performed By: #### 5 7021-8 ####ADAM LABORATORYCLIA [id number] [place] [address] [place] Immature granulocytes/100 WBC (Bld) 0.3 % Normal [facility] Comment on above: Order Comment: Speci men Type: BLOOD SPECIMENOrdering Facility: [facility] Address: [address] [place] [address] Performed By: #### 5 7021-8 ####ADAM LABORATORYCLIA [id number] [place] [address] [place] Lymphocytes (Bld) [#/Vol] 0.64 10*3/uL Low 1.00-4.00 [facility] Comment on above: Order Comment: Speci men Type: BLOOD SPECIMENOrdering Facility: [facility] Address: [address] [place] [address] Performed By: #### 5 7021-8 ####ADAM LABORATORYCLIA [id number] [address] [place] Lymphocytes/100 WBC (Bld) 10.3 % Normal [facility] Comment on above: Order Comment: Speci men Type: BLOOD SPECIMENOrdering Facility: [facility] Address: [address] [place] [address] Performed By: #### 5 7021-8 ####AADM LABORATORYCLIA [id number] [address] MCH (RBC) [Entitic mass] 30.7 pg Normal 26.0-34.0 [facility] Comment on above: Order Comment: Speci men Type: BLOOD SPECIMENOrdering Facility: [facility] Address: [address] [place] [address] Performed By: #### 5 7021-8 ####ADAM LABORATORYCLIA [id number] [address] [place] MCHC (RBC) [Mass/Vol] 31.7 g/dL Normal 30.5-36.0 [facility] Comment on above: Order Comment: Speci men Type: BLOOD SPECIMENOrdering Facility: [facility] Address: [address] [place] [address] Performed By: #### 5 7021-8 ####ADAM LABORATORYCLIA [id number] [address] MCV (RBC) [Entitic vol] 96.8 fL Normal 80.0-100.0 [facility] Comment on above: Order Comment: Speci men Type: BLOOD SPECIMENOrdering Facility: [facility] Address: [address] [place] [address] Performed By: #### 5 7021-8 ####ADAM LABORATORYCLIA [id number] [address] Monocytes (Bld) [#/Vol] 0.66 10*3/uL Normal <0.87 [facility] Comment on above: Order Comment: Speci men Type: BLOOD SPECIMENOrdering Facility: [facility] Address: [address] [place] [address] Performed By: #### 5 7021-8 ####ADAM LABORATORYCLIA [id number] [address] Monocytes/100 WBC (Bld) 10.6 % Normal [facility] Comment on above: Order Comment: Speci men Type: BLOOD SPECIMENOrdering Facility: [facility] Address: [address] [place] [address] Performed By: #### 5 7021-8 ####ADAM LABORATORYCLIA [id number] [place] [address] [place] Neutrophils (Bld) [#/Vol] 4.78 10*3/uL Normal 1.45-7.50 [facility] Comment on above: Order Comment: Speci men Type: BLOOD SPECIMENOrdering Facility: [facility] Address: [address] [place] [address] Performed By: #### 5 7021-8 ####ADAM LABORATORYCLIA [id number] [place] [address] [place] Neutrophils/100 WBC (Bld) 76.6 % Normal [facility] Comment on above: Order Comment: Speci men Type: BLOOD SPECIMENOrdering Facility: [facility] Address: [address] [place] [address] Performed By: #### 5 7021-8 ####ADAM LABORATORYCLIA [id number] [place] [address] [place] Nucleated RBC (Bld) [#/Vol] 10*3/uL Normal <0.01 [facility] Comment on above: Order Comment: Speci men Type: BLOOD SPECIMENOrdering Facility: [facility] Address: [address] [place] [address] Performed By: #### 5 7021-8 ####ADAM LABORATORYCLIA [id number] [place] [address] [place] Nucleated RBC/100 WBC (Bld) [Ratio] 0.0 /100 WBC Normal [facility] Comment on above: Order Comment: Speci men Type: BLOOD SPECIMENOrdering Facility: [facility] Address: [address] [place] [address] Performed By: #### 5 7021-8 ####ADAM LABORATORYCLIA [id number] [place] [address] [place] Platelet mean volume (Bld) [Entitic vol] 9.9 fL Normal 9.0-12.7 [facility] Comment on above: Order Comment: Speci men Type: BLOOD SPECIMENOrdering Facility: [facility] Address: [address] [place] [address] Performed By: #### 5 7021-8 ####ADAM LABORATORYCLIA [id number] [address] Platelets (Bld) [#/Vol] 115 10*3/uL Low 150-400 [facility] Comment on above: Order Comment: Speci men Type: BLOOD SPECIMENOrdering Facility: [facility] Address: [address] [place] [address] Result Comment: No c lot detected. Performed By: #### 5 7021-8 ####ADAM LABORATORYCLIA [id number] [address] OF [facility] RBC (Bld) [#/Vol] 3.42 10*6/uL Low 4.20-6.00 [facility] Comment on above: Order Comment: Speci men Type: BLOOD SPECIMENOrdering Facility: [facility] Address: [address] [place] [address] Performed By: #### 5 7021-8 ####ADAM LABORATORYCLIA [id number] [address] WBC (Bld) [#/Vol] 6.24 10*3/uL Normal 3.70-11.00 [facility] Comment on above: Order Comment: Speci men Type: BLOOD SPECIMENOrdering Facility: [facility] Address: [address] [place] [address] Performed By: #### 5 7021-8 ####ADAM LABORATORYCLIA [id number] [address] CNOVon 11-14-2024 CNOV Office Visit (ORMDNA ) -- MAURI QUINONES ([id number]) 1955 M Date Time Provider Department 11/14/24 10:00 AM NUPUR DE LA ROSA During your visit today, we recorded the following information about you: Nupur De La Rosa MD 12/12/2024 10:19 PM Signed REASON FOR VISIT / CHIEF COMPLAINT CHIEF COMPLAINT: Mauri Quinones is a 69 year old male who presents today for follow up office visit. Patient presents with: Right Hip - Established Patient, Pain, Hip Replacement HISTORY OF PRESENT ILLNESS (HPI) PAIN EVALUATION 11/11/2024 1158 Pain Level: 8 Pain Location: Hip-Right Description: Sharp;Stabbing;Throbbing Duration Amount of Time: -- ongoing Frequency: Continuous Intervention/Comfort measure: -- tylenol, Patient was last seen 1 month ago for pain in his knee. He reports that has improved however at this time he is having increased pain in his hip. He does have a remote history positive for total right hip arthroplasty. He states his pain is worse with weightbearing as well as at rest. Any new injury, since being seen last: No Is there any overall improvement in your condition? Yes, improvement in knee pain Does anything make it worse?: Yes, as noted above Does anything make it better?: No REVIEW OF SYMPTOMS: Integumentary: Any recent skin changes or rashes? No Neurologic: Any numbness or tingling in the LOCAL AREA? No Endocrine: Any diagnosis of diabetes? Yes Hematologic: Any recent bleeding episodes? No ALLERGIES ALLERGIES Allergen Reactions Lyrica [Pregabalin] Swelling PAST MEDICAL HISTORY PAST MEDICAL HISTORY Diagnosis Date Acute on chronic diastolic congestive heart failure (HCC) 07/14/2018 GARRET (acute kidney injury) 03/24/2019 GARRET (acute kidney injury) 03/24/2019 Ankylosing spondylitis (HCC) CAD (coronary artery disease) Cellulitis Chronic combined systolic and diastolic CHF (congestive heart failure) ([facility]) 03/24/2019 CKD (chronic kidney disease) stage 3, GFR 30-59 ml/min ([facility]) 03/24/2019 Constipation Diabetes ([facility]) Gout High phosphate levels 03/24/2019 History of coronary artery bypass graft 04/18/2019 04/10/17 CARTY to LAD, SVG to PDA, SVG to OM Hx of fracture multiple bones Hyperkalemia 03/24/2019 Hypoalbuminemia 03/24/2019 Hyponatremia 03/24/2019 Hypoxia 03/24/2019 Ischemic cardiomyopathy 04/18/2019 Echocardiogram 01/10/19 Dr. Nunez: Dilated left ventricle, left ventricular ejection fraction 40%, mild to moderate systolic dysfunction, moderate concentric LVH, dilated left and right atria. Mild mitral valve thickening with papillary muscle dysfunction, mild mitral valve insufficiency, tricuspid valve insufficiency, aortic valve insufficiency, pulmonic valve insufficiency. Aortic valve calcifi NSTEMI (non-ST elevated myocardial infarction) (HCC) 03/12/2017 [facility] admit Osteoarthritis Transition of care performed with sharing of clinical summary 04/08/2019 Admit [facility] 03/21/19-03/22/19 Discharge diagnoses chronic kidney disease with worsening creatinine, acute kidney injury Hypokalemia Toxic encephalopathy secondary to Flexeril overusage Type 2 diabetes Ischemic cardiomyopathy Coronary artery disease Ligamental cervical neck strain and acute Pulmonary hypertension Hypertension Pyuria Preadmit: to [facility] ED with slurred speech, lethargy. PAST SURGICAL HISTORY Procedure Laterality Date ARTHRP ACETBLR/PROX FEM PROSTC AGRFT/ALGRFT Right 2019 Dr Peguero CORONARY ARTERY BYPASS GRAFT 04/12/2017 x 3 FEMUR RIGHT OP SURGERY Right Repair of fracture with hardward HIP SURGERY HX Right pin KNEE ARTHROSCOPY Left x2 KNEE SURGERY HX Right TKR, right, arthoscopy x3 PAST SURGICAL HISTORY OF 09/07/2017 08/15/17 fx radius in 2 places; plate and screws.Plate and screws 09/07/17 [facility] TOE SURGERY HX Right PHYSICAL EXAMINATION Vitals: There were no vitals taken for this visit. Body Habitus:no acute distress and alert and oriented Orientation: Normal: Oriented to person, place and time Psych: normal Sensation: sensation to light touch is grossly normal bilaterally Skin: Color, texture, turgor normal. No rashes or lesions Swelling: no swelling noted Stance: normal cervical posture, shoulder alignment, and no joint deformities or swelling noted Ortho Exam Right hip well-healed surgical incision Passive range of motion is painful in the lateral aspect of the hip as well as the groin. Right leg neurovascularly intact Imaging : X-ray right femur today The total hip and knee arthroplasties remain in satisfactory position, although the distal tibial stem and screws are not imaged on the lateral image. No periprosthetic lucency or acute fracture. Stable, healing distal femoral fracture. Extensive vascular calcifications. Proceedures : None today Assessment: Right hip pain. Differential diagnosis includes (more content not included)... Normal [facility] CRP SerPl-mCncon 11-14-2024 CRP [Mass/Vol] 1.8 mg/dL High <0.9 [facility] Comment on above: Order Comment: Kelsi huff Type: BLOOD SPECIMENOrdering Facility: [facility] Address: [address] [place] [address] Performed By: #### 1 988-5 ####[facility] LABORATORYCLIA [id number] [place] [address] [place] CRP [Mass/Vol]on 11-14-2024 Interpretation and review of laboratory results Abnormal [facility] ESR Westergren method (Bld) [Velocity]on 11-14-2024 ESR (Bld) [Velocity] 2 mm/h [facility] Interpretation and review of laboratory results Normal [facility] ESR (Bld) [Velocity] 2 mm/h Normal 0-15 [facility] Comment on above: Order Comment: Specmarcellus huff Type: BLOOD SPECIMENOrdering Facility: [facility] Address: [address] [place] [address] Performed By: #### 4 537-7 ####[facility] LABCLIA [id number] [address] [place] XR FEMUR 2V AP/LAT RTon 10-26 XR FEMUR 2V AP/LAT RT * * *Final Report* * * DATE OF EXAM: Nov 14 2024 9:46AM LIUDMILA 5333 - XR FEMUR 2V AP/LAT RT / PROCEDURE REASON: Z96.641-Status post total replacement of right hip * * * * Physician Interpretation * * * * PROCEDURE: Right femur INDICATION: Status post total replacement of right hip .F/U POST OP TECHNIQUE: XR FEMUR 2V AP/LAT RT COMPARISON: 09/22/2024 FINDINGS: The total hip and knee arthroplasties remain in satisfactory position, although the distal tibial stem and screws are not imaged on the lateral image. No periprosthetic lucency or acute fracture. Stable, healing distal femoral fracture. Extensive vascular calcifications. IMPRESSION: No acute abnormality Crts: CARMELA Transcribe Date/Time: Nov 16 2024 8:07A Dictated by : SONG DE LA GARZA MD This examination was interpreted and the report reviewed and electronically signed by: SONG DE LA GARZA MD on Nov 16 2024 8:09AM EST [id number] [facility] 11-10-2024 CNPN Telephone (ORMDNA) -- MAURI QUINONES Farhana ([id number]) 1955 M Date Time Provider Department 11/10/24 NUPUR DE LA ROSA During your visit today, we recorded the following information about you: Isabela Rosado RN 11/10/2024 1:28 PM Signed Spoke with patient Started last Sunday,shooting pain from right hip replacement, lasts about a minute or two to right knee Used ice, which usually helps but it didn't plus he takes tylenol Has to keep straight, can't bend or move left or right Hard to put socks on No back issues Uses walker and brace and is able to weight 100% Saw pt 10/17/24 He is stretching twice a day to help Please advise Maco Rivera PA-C 11/10/2024 2:27 PM Signed I called to talk with Ted but there was no answer. I will try again later today. PASTOR Calderon Robert S, PA-C 11/10/2024 3:08 PM Signed I called but still no answer. I will try again today or tomorrow. PASTOR Calderon Robert S, PA-C 11/10/2024 4:58 PM Signed Isabela please ask schedulers to call Ted to help set up an office follow up. Thank you Isabela Thurston, BISMARK 11/11/2024 7:21 AM Signed I talked with Ted. He denies new trauma but c/o sharp pain in groin and anterior thigh with hip flexion. He has a KEMAR and TKA on this side with a retrograde minesh for an old periprosthetic knee fracture. Ted also wears a knee brace to help with instability of the total knee. I will ask our schedulers to call Ted to help set up a visit and new femur XRays. Lori Mayorga PA-C 11/11/2024 11:40 AM Signed Patient called back in and has been scheduled. Allergies As of Date: 11/10/2024 Noted Allergy Reaction LYRICA (PREGABALIN) 03/23/2017 7 - Swelling Date Reviewed: 10/17/2024 Reviewed by: Jeanne Akbar OCCA - Fully Assessed Prescriptions as of 11/11/2024 - ammonium lactate (LAC-HYDRIN) 12 % cream Apply to affected area as needed. - LANTUS SOLOSTAR U-100 INSULIN 100 unit/mL (3 mL) Inject 10 Units subcutaneously daily at bedtime. - hydrOXYzine HCl (ATARAX) 25 mg tablet Take 1 tablet by mouth every 6 hours as needed for itching/rash. - Tadalafil (CIALIS) 20 mg tablet Take 1 tablet by mouth once daily as needed. Do not take at same time as doxazosin - pantoprazole DR (PROTONIX) 40 mg tablet Take 1 tablet by mouth every morning. - Insulin [place], Disposable, (BD ULTRA-FINE GOLDY PEN NEEDLE) 32 gauge x 5/32 Use one needle for each dose. once/day. - atorvastatin (LIPITOR) 40 mg tablet Take 1 tablet by mouth daily at bedtime. - bumetanide (BUMEX) 2 mg tablet Take 1 tablet by mouth every morning. - carvedilol (COREG) 12.5 mg tablet Take 1 tablet by mouth two times a day with meals. - loratadine (CLARITIN) 10 mg tablet Take 1 tablet by mouth once daily. - aspirin, enteric coated (ASPIRIN, ENTERIC COATED) 81 mg EC tablet Take 81 mg by mouth once daily. Pt to call and clarify if needs to stop - sevelamer carbonate (RENVELA) 800 mg tablet Take 800 mg by mouth three times daily with meals. - B Complex-Vitamin C-Folic Acid (NEPHRO-SAVANAH) 0.8 mg tab Take 1 tablet by mouth every morning. - melatonin 5 mg tablet Take 10 mg by mouth at bedtime as needed for for insomnia. - acetaminophen (TYLENOL EX STR RAPID RELEASE ORAL) Take 1-2 capsules by mouth every 6 hours as needed (pain). - doxazosin (CARDURA) 4 mg tablet Take 0.5 tablets by mouth twice daily. - latanoprost (XALATAN) 0.005 % ophthalmic solution Use 1 Drop in both eyes daily at bedtime. into affected eye(s). 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] 09/24/2017 Hypertension, essential [I10] 10/23/2017 Lower leg edema [R60.0] 01/22/2018 12/02/2021 Chronic left hip pain [M25.552, G89.29] 03/04/2018 10/30/2022 Anemia of chronic renal failure, stage 3 (moder*03/05/2018 12/02/2021 Acute on chronic diastolic congestive heart zane*07/14/2018 Recurrent right pleural effusion [J90] 07/14/2018 12/02/2021 PVD (peripheral vascular disease) (HCC) [I73.9] 07/16/2018 Altered mental status [R41.82] 03/24/2019 07/05/2019 UTI (urinary tract infection) [N39.0] 03/24/2019 12/02/2021 Chronic combined systolic and diastolic CHF (co*03/24/2019 Hyperkalemia [E87.5] 03/24/2019 12/02/2021 Hypoxia [R09.02] 03/24/2019 12/02/2021 Hypoalbuminemia [E88.09] 03/24/2019 12/02/2021 GARRET (acute kidney injury) (HCC) [N17.9] 03/24/2019 12/02/2021 CKD (chronic kidney disease) kaitlynn (more content not included)... Normal [facility] Aniket 11-09-2024 CNPN Telephone (MEPRAD) -- MAURI QUINONES ([id number]) 1955 M Date Time Provider Department 11/09/24 [facility]OL[facility] HEIN During your visit today, we recorded the following information about you: Allergies As of Date: 11/09/2024 Noted Allergy Reaction LYRICA (PREGABALIN) 03/23/2017 7 - Swelling Date Reviewed: 10/17/2024 Reviewed by: Jeanne Akbar OCCA - Fully Assessed Prescriptions as of 11/23/2024 - ammonium lactate (LAC-HYDRIN) 12 % cream Apply to affected area as needed. - LANTUS SOLOSTAR U-100 INSULIN 100 unit/mL (3 mL) Inject 10 Units subcutaneously daily at bedtime. - hydrOXYzine HCl (ATARAX) 25 mg tablet Take 1 tablet by mouth every 6 hours as needed for itching/rash. - Tadalafil (CIALIS) 20 mg tablet Take 1 tablet by mouth once daily as needed. Do not take at same time as doxazosin - pantoprazole DR (PROTONIX) 40 mg tablet Take 1 tablet by mouth every morning. - Insulin [place], Disposable, (BD ULTRA-FINE GOLDY PEN NEEDLE) 32 gauge x 32 Use one needle for each dose. once/day. - atorvastatin (LIPITOR) 40 mg tablet Take 1 tablet by mouth daily at bedtime. - bumetanide (BUMEX) 2 mg tablet Take 1 tablet by mouth every morning. - carvedilol (COREG) 12.5 mg tablet Take 1 tablet by mouth two times a day with meals. - loratadine (CLARITIN) 10 mg tablet Take 1 tablet by mouth once daily. - aspirin, enteric coated (ASPIRIN, ENTERIC COATED) 81 mg EC tablet Take 81 mg by mouth once daily. Pt to call and clarify if needs to stop - sevelamer carbonate (RENVELA) 800 mg tablet Take 800 mg by mouth three times daily with meals. - B Complex-Vitamin C-Folic Acid (NEPHRO-SAVANAH) 0.8 mg tab Take 1 tablet by mouth every morning. - melatonin 5 mg tablet Take 10 mg by mouth at bedtime as needed for for insomnia. - acetaminophen (TYLENOL EX STR RAPID RELEASE ORAL) Take 1-2 capsules by mouth every 6 hours as needed (pain). - doxazosin (CARDURA) 4 mg tablet Take 0.5 tablets by mouth twice daily. - latanoprost (XALATAN) 0.005 % ophthalmic solution Use 1 Drop in both eyes daily at bedtime. into affected eye(s). 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] 09/24/2017 Hypertension, essential [I10] 10/23/2017 Lower leg edema [R60.0] 01/22/2018 12/02/2021 Chronic left hip pain [M25.552, G89.29] 03/04/2018 10/30/2022 Anemia of chronic renal failure, stage 3 (moder*03/05/2018 12/02/2021 Acute on chronic diastolic congestive heart zane*07/14/2018 Recurrent right pleural effusion [J90] 07/14/2018 12/02/2021 PVD (peripheral vascular disease) (HCC) [I73.9] 07/16/2018 Altered mental status [R41.82] 03/24/2019 07/05/2019 UTI (urinary tract infection) [N39.0] 03/24/2019 12/02/2021 Chronic combined systolic and diastolic CHF (co*03/24/2019 Hyperkalemia [E87.5] 03/24/2019 12/02/2021 Hypoxia [R09.02] 03/24/2019 12/02/2021 Hypoalbuminemia [E88.09] 03/24/2019 12/02/2021 GARRET (acute kidney injury) (HCC) [N17.9] 03/24/2019 12/02/2021 CKD (chronic kidney disease) stage 3, GFR 30-59*03/24/2019 04/18/2019 High phosphate levels [E83.39] 03/24/2019 12/02/2021 Hyponatremia [E87.1] 03/24/2019 12/02/2021 Delirium [R41.0] 03/29/2019 12/02/2021 Malnutrition of moderate degree (HCC) [E44.0] 04/01/2019 12/02/2021 Transition of care performed with sharing of cl*04/08/2019 04/18/2019 Chronic kidney disease, stage IV (severe) (HCC)*04/18/2019 12/02/2021 Ischemic cardiomyopathy [I25.5] 04/18/2019 Sprain of ligament of cervical spine region [S1*04/18/2019 12/02/2021 History of coronary artery bypass graft [Z95.1] 04/18/2019 History of ventricular tachycardia [Z86.79] 04/18/2019 Proliferative retinopathy of both eyes associat*06/17/2019 Flaccid neuropathic bladder, not elsewhere clas*06/04/2020 12/02/2021 Encounter for support and coordination of trans*10/06/2020 12/02/2021 Osteopenia, senile [M85.80] 10/06/2020 Other fracture of right femur, initial encounte*04/23/2022 UGIB (upper gastrointestinal bleed) [K92.2] 04/30/2022 10/30/2022 Blood loss anemia [D50.0] 04/30/2022 JOHNY (obstructive sleep apnea) [G47.33] 04/30/2022 Thoracic compression fracture, closed, initial *05/07/2022 ESRD (end stage renal disease) on dialysis (HCC*06/05/2022 Fracture, femur, supracondylar, right, open typ*01/01/2023 Abnormal EKG [R94.31] 01/03/2023 Chronic kidney disease (CKD), stage V (HCC) [N1*01/03/2023 Hx of CABG [Z95.1] 01/03/2023 Preoperative examination [Z01.818] 04/20/2023 (more content not included)... Normal [facility] Cardiology Visit Reporton Cardiology Visit Report [facility] [address] [place] [address] OFFICE VISIT Date of Service: 10/28/24 MR#: [id number] Acct: [id number] Name: MAURI QUINONES Rep #: [id number] : 1955 Provider: Dr. Jensen karimi MD Age/Sex: 68/M Location: [facility] Status: Signed HPI HPI History of Present Illness Details: Patient is a 68-year-old white male that comes in his today for monitoring of his cardiovascular status. He has known history of coronary disease status post bypass graft surgery at [facility] [facility] March 2017. He received a CARTY to the LAD a vein graft to the OM branch of the circumflex and a vein graft to the PDA of the right coronary artery. His presenting complaint at that time was dyspnea on exertion with the profound hot feeling. He has had no recurrence of this symptom. Postoperatively the patient developed ventricular tachycardia that was treated medically and resolved. He has a history of 2+ tricuspid regurgitation and significant mitral annular calcification with mild mitral stenosis on echocardiogram March 2022. He denies any change in his minimal dyspnea on exertion he only gets short of breath when he hurries to do something otherwise he is asymptomatic. The patient has a history of an ischemic cardiomyopathy EF of 45% on his echo in 2021. He is diabetic this is managed by Dr. Gould and he has end-stage renal disease on hemodialysis Sunday and Sunday. The patient is titrating his medications so we can tolerate dialysis he does not take his Coreg the night before and takes it after his dialysis. He had dialysis this morning and today in the office his blood pressure is 133/85 with a heart rate of 68. The patient denies any lower extremity edema he is wearing a brace on his right lower extremities he has had multiple orthopedic surgical interventions on his hip and knee and upper femur. Intake Vital Signs 11/19/23 13:17 10/28/24 12:56 Height 5 ft 10 in 5 ft 10 in Weight: 174 lb 187 lb 9.814 oz BMI 25.0 26.9 BP 153/91 H 133/85 H Blood Pressure Location Lt brachial Rt brachial Position Sitting Sitting Respiration 18 18 Pulse 64 68 Pulse Source Monitor Monitor Pulse Oximetry (%) 96 92 Oxygen Delivery Method room air Intake Visit Reasons: 9 M FU Concessions Manager Required: No Accompanied by: Is patient in pain?: No Allergies pregabalin (From Lyrica) Allergy (Verified 10/28/24 12:56) Angioedema Medications ???Medication ???Instructions ???Recorded ???Confirmed ???Type latanoprost 0.005 % eye drops 1 drp EACH EYE QHS 06/03/18 History melatonin 5 mg tablet 10 mg PO HS PRN Sleep 08/02/2012/19 History acetaminophen 500 mg tablet 1,000 mg PO DAILY PRN Pain 1-10 Or 09/29/20 10/28/24 History Fever loratadine 10 mg capsule 10 mg PO DAILY 10/24/21 10/28/24 H istory metolazone 2.5 mg tablet 2.5 mg PO DAILY PRN fluid 10/24/21 10/28/24 History sevelamer carbonate 800 mg tablet 800 mg PO TID 05/30/22 10/28/24 H istory handicap placcard #1 ea 07/07/22 10/12/22 Rx hydralazine 50 mg tablet 25 mg PO DAILY PRN elevated blood 07/07/22 10/28/24 History pressure doxazosin 2 mg tablet 2 mg PO DAILY #90 tabs 11/19/23 Rx aspirin 81 mg tablet,delayed 81 mg PO DAILY #90 tabs 04/23/24 0 10/28/24 Rx release (Adult Aspirin Regimen) pantoprazole 40 mg tablet,delayed See Rx Instructions .Route 10/28/24 Rx release .COMPLEX #180 tabs bumetanide 2 mg tablet 2 mg PO DAILY FLUID #90 tabs 07/0910/28/24 Rx atorvastatin 40 mg tablet See Rx Instructions .Route 4 10/28/24 Rx .COMPLEX #90 tabs carvedilol 12.5 mg tablet See Rx Instructions .Route 4 10/28/24 Rx .COMPLEX #180 tabs hydroxyzine HCl 25 mg tablet 25 mg PO Q6 PRN itch 10/28/24 03/12/19 History insulin glargine 100 unit/mL (3 10 unit subcut QPM 10/28/24 History mL) subcutaneous pen (Lantus Solostar U-100 Insulin) tadalafil 20 mg tablet 20 mg PO QDAY PRN 10/28/24 5 History tramadol 50 mg tablet 50 mg PO Q8H PRN 10/28/24 10/28/24 History Ejection fraction %: 45 Have you fallen in the past year?: Yes PFSH Medical History C. difficile diarrhea Anemia History of GI bleed Pure hypercholesterolemia Ischemic cardiomyopathy Essential hypertension Renal insufficiency Ankylosing spondylitis CAD (coronary artery disease) Overweight (BMI 25.0-29.9) Leg edema Leg swelling Acute systolic heart failure Bradycardia Biliary pleural effusion HTN (hypertension) Ventricular tachyarrhythmia Atherosclerosis of [place] coronary artery of [place] heart without angina pectoris Pulmonary HTN Cardiomyopathy Valvular (more content not included)... Normal [facility] 10-17-2024 [facility] Office Visit (ORNA ) -- MAURI QUINONES ([id number]) 1955 M Date Time Provider Department 10/17/24 4:15 PM NUPUR DE LA ROSA During your visit today, we recorded the following information about you: Nupur De La Rosa MD 11/14/2024 9:56 PM Signed REASON FOR VISIT / CHIEF COMPLAINT CHIEF COMPLAINT: Mauri Quinones is a 69 year old male who presents today for follow up office visit. Patient presents with: Right Knee - Follow Up HISTORY OF PRESENT ILLNESS (HPI) PAIN EVALUATION 10/17/2024 1629 Pain Level: 6 Pain Location: Knee-Right Description: Dull Frequency: Intermittent Patient is here for evaluation of a spontaneously developing right knee pain. He was last seen approximately a month ago. He has a past medical history significant for total knee arthroplasty subsequent periprosthetic fracture that was treated with an intramedullary minesh and also a remote total hip arthroplasty. He is complaining of pain about the knee that is made worse with weightbearing. Any new injury, since being seen last: No Is there any overall improvement in your condition? No Does anything make it worse?: Yes, prolonged standing, walking Does anything make it better?: Yes, activity modification REVIEW OF SYMPTOMS: Integumentary: Any recent skin changes or rashes? No Neurologic: Any numbness or tingling in the LOCAL AREA? No Endocrine: Any diagnosis of diabetes? No Hematologic: Any recent bleeding episodes? No ALLERGIES ALLERGIES Allergen Reactions Lyrica [Pregabalin] Swelling PAST MEDICAL HISTORY PAST MEDICAL HISTORY Diagnosis Date Acute on chronic diastolic congestive heart failure ([facility]) 07/14/2018 GARRET (acute kidney injury) ([facility]) 03/24/2019 GARRET (acute kidney injury) ([facility]) 03/24/2019 Ankylosing spondylitis ([facility]) CAD (coronary artery disease) Cellulitis Chronic combined systolic and diastolic CHF (congestive heart failure) ([facility]) 03/24/2019 CKD (chronic kidney disease) stage 3, GFR 30-59 ml/min ([facility]) 03/24/2019 Constipation Diabetes ([facility]) Gout High phosphate levels 03/24/2019 History of coronary artery bypass graft 04/18/2019 04/10/17 CARTY to LAD, SVG to PDA, SVG to OM Hx of fracture multiple bones Hyperkalemia 03/24/2019 Hypoalbuminemia 03/24/2019 Hyponatremia 03/24/2019 Hypoxia 03/24/2019 Ischemic cardiomyopathy 04/18/2019 Echocardiogram 01/10/19 Dr. Nunez: Dilated left ventricle, left ventricular ejection fraction 40%, mild to moderate systolic dysfunction, moderate concentric LVH, dilated left and right atria. Mild mitral valve thickening with papillary muscle dysfunction, mild mitral valve insufficiency, tricuspid valve insufficiency, aortic valve insufficiency, pulmonic valve insufficiency. Aortic valve calcifi NSTEMI (non-ST elevated myocardial infarction) (HCC) 03/12/2017 [facility] admit Osteoarthritis Transition of care performed with sharing of clinical summary 04/08/2019 Admit [facility] 03/21/19-03/22/19 Discharge diagnoses chronic kidney disease with worsening creatinine, acute kidney injury Hypokalemia Toxic encephalopathy secondary to Flexeril overusage Type 2 diabetes Ischemic cardiomyopathy Coronary artery disease Ligamental cervical neck strain and acute Pulmonary hypertension Hypertension Pyuria Preadmit: to [facility] ED with slurred speech, lethargy. PAST SURGICAL HISTORY Procedure Laterality Date ARTHRP ACETBLR/PROX FEM PROSTC AGRFT/ALGRFT Right 2018 Dr Peguero CORONARY ARTERY BYPASS GRAFT 04/12/2017 x 3 FEMUR RIGHT OP SURGERY Right Repair of fracture with hardward HIP SURGERY HX Right pin KNEE ARTHROSCOPY Left x2 KNEE SURGERY HX Right TKR, right, arthoscopy x3 PAST SURGICAL HISTORY OF 09/07/2017 08/15/17 fx radius in 2 places; plate and screws.Plate and screws 09/07/17 [facility] TOE SURGERY HX Right PHYSICAL EXAMINATION Vitals: There were no vitals taken for this visit. Body Habitus:no acute distress and alert and oriented Orientation: Normal: Oriented to person, place and time Psych: normal Sensation: sensation to light touch is grossly normal bilaterally Skin: Color, texture, turgor normal. No rashes or lesions Swelling: no swelling noted Stance: normal cervical posture, shoulder alignment, and no joint deformities or swelling noted Ortho Exam Right knee well-healed surgical incisions corresponding to his multiple previous surgeries No palpable effusion Range of motion 0-1 10 Mild laxity to varus valgus stress Mild laxity to anterior posterior stress in the knee. Right leg neurovascularly intact Imaging : None today Proceedures : None today Assessment: Chronic right leg pain with acute flareup that is since improved. Possibility we may be dealing with a referred pain from the hip and possible loose component versus instability in the knee. As he is improving clinically I recommend we contin (more content not included)... Normal [facility] 10-08-2024 [place] Telephone ([facility]AMPWS) -- MAURI QUINONES ([id number]) 1955 M Date Time Provider Department 10/08/24 ALEXUS MENDEZ During your visit today, we recorded the following information about you: Alicia Cantu LPN 10/08/2024 4:49 PM Signed [facility] sends fax stating that Ammonium lactate lotion should be changed to cream. Called to [facility] and left message to call and speak with nurse. Was patient able to orange picker prescription of do they in fact need this changed? Bryce Landin, BISMARK 10/08/2024 6:05 PM Signed Pt called in and reports they didn't have the Ammonium lactate lotion. Could you please call in the cream for him. The patient has been identified by name and date of : Yes Caregiver verified no other encounters exist for this prescription request: Yes Caregiver confirmed with patient/requestor that no other refills are due, in the near future, with this provider at this time: Yes The last office visit in the department: 10/07/2024 Does the patient have a future office visit with this provider/department: Yes 12/29/2024 Requested Prescriptions Pending Prescriptions Disp Refills ammonium lactate (LAC-HYDRIN) 12 % cream Sig: Apply to affected area as needed. Bryce Landin RN October 08, 2024 6:05 PM Alexus Mendez APRN.[facility] 10/09/2024 8:00 AM Signed Creme was ordered. Bryce Landin RN 10/09/2024 10:06 AM Signed Pts called and is notified of providers message. She voices understanding. Bryce Landin RN Allergies As of Date: 10/08/2024 Noted Allergy Reaction LYRICA (PREGABALIN) 03/23/2017 7 - Swelling Date Reviewed: 10/07/2024 Reviewed by: Leah Garg MA - Fully Assessed Reason for Visit: Medication Problem [65] Order(s):ammonium lactate (LAC-HYDRIN) 12 % creamApply to affected area as needed.Disp: 140 gRfl: 3 Prescriptions as of 10/09/2024 - ammonium lactate (LAC-HYDRIN) 12 % cream Apply to affected area as needed. - LANTUS SOLOSTAR U-100 INSULIN 100 unit/mL (3 mL) Inject 10 Units subcutaneously daily at bedtime. - hydrOXYzine HCl (ATARAX) 25 mg tablet Take 1 tablet by mouth every 6 hours as needed for itching/rash. - Tadalafil (CIALIS) 20 mg tablet Take 1 tablet by mouth once daily as needed. Do not take at same time as doxazosin - pantoprazole DR (PROTONIX) 40 mg tablet Take 1 tablet by mouth every morning. - Insulin [place], Disposable, (BD ULTRA-FINE GOLDY PEN NEEDLE) 32 gauge x Use one needle for each dose. once/day. - atorvastatin (LIPITOR) 40 mg tablet Take 1 tablet by mouth daily at bedtime. - bumetanide (BUMEX) 2 mg tablet Take 1 tablet by mouth every morning. - carvedilol (COREG) 12.5 mg tablet Take 1 tablet by mouth two times a day with meals. - loratadine (CLARITIN) 10 mg tablet Take 1 tablet by mouth once daily. - aspirin, enteric coated (ASPIRIN, ENTERIC COATED) 81 mg EC tablet Take 81 mg by mouth once daily. Pt to call and clarify if needs to stop - sevelamer carbonate (RENVELA) 800 mg tablet Take 800 mg by mouth three times daily with meals. - B Complex-Vitamin C-Folic Acid (NEPHRO-SAVANAH) 0.8 mg tab Take 1 tablet by mouth every morning. - melatonin 5 mg tablet Take 10 mg by mouth at bedtime as needed for for insomnia. - acetaminophen (TYLENOL EX STR RAPID RELEASE ORAL) Take 1-2 capsules by mouth every 6 hours as needed (pain). - doxazosin (CARDURA) 4 mg tablet Take 0.5 tablets by mouth twice daily. - latanoprost (XALATAN) 0.005 % ophthalmic solution Use 1 Drop in both eyes daily at bedtime. into affected eye(s). 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] 09/24/2017 Hypertension, essential [I10] 10/23/2017 Lower leg edema [R60.0] 01/22/2018 12/02/2021 Chronic left hip pain [M25.552, G89.29] 03/04/2018 10/30/2022 Anemia of chronic renal failure, stage 3 (moder*03/05/2018 12/02/2021 Acute on chronic diastolic congestive heart zane*07/14/2018 Recurrent right pleural effusion [J90] 07/14/2018 12/02/2021 PVD (peripheral vascular disease) (HCC) [I73.9] 07/16/2018 Altered mental status [R41.82] 03/24/2019 07/05/2019 UTI (urinary tract infection) [N39.0] 03/24/2019 12/02/2021 Chronic combined systolic and diastolic CHF (co*03/24/2019 Hyperkalemia [E87.5] 03/24/2019 12/02/2021 Hypoxia [R09.02] 03/24/2019 12/02/2021 Hypoalbuminemia [E88.09] 03/24/2019 12/02/2021 GARRET (acute kidney injury) (HCC) [N17.9] 03/24/2019 12/02/2021 CKD (chronic kidney disease) (more content not included)... Normal [facility] 10-07-2024 [facility] Office Visit (FAMPWS ) -- MAURI QUINONES ([id number]) 1955 M Date Time Provider Department 10/07/24 2:40 PM ALEXUS MENDEZ During your visit today, we recorded the following information about you: Pulse Respiration Blood pressure Weight 78/minute 16/minute 116/64 77.1 kg Alexus Mendez, [place].[employer] 10/07/2024 3:14 PM Signed This is a 68 year old male who presents today with: Patient presents with: Rash HISTORY OF PRESENT ILLNESS: Mauri Quinones is a 68 year old male. Patient presents with: Rash Itching on trunk and arms. Back was worse but now better. No rash. Hemodialysis pt. Itching for the past 1 month Right medial and lateral knee aching. Seeing ortho doctor tomorrow PAST MEDICAL HISTORY: PAST MEDICAL HISTORY Diagnosis Date Acute on chronic diastolic congestive heart failure ([facility]) 07/14/2018 GARRET (acute kidney injury) ([facility]) 03/24/2019 GARRET (acute kidney injury) ([facility]) 03/24/2019 Ankylosing spondylitis ([facility]) CAD (coronary artery disease) Cellulitis Chronic combined systolic and diastolic CHF (congestive heart failure) ([facility]) 03/24/2019 CKD (chronic kidney disease) stage 3, GFR 30-59 ml/min ([facility]) 03/24/2019 Constipation Diabetes ([facility]) Gout High phosphate levels 03/24/2019 History of coronary artery bypass graft 04/18/2019 04/10/17 CARTY to LAD, SVG to PDA, SVG to OM Hx of fracture multiple bones Hyperkalemia 03/24/2019 Hypoalbuminemia 03/24/2019 Hyponatremia 03/24/2019 Hypoxia 03/24/2019 Ischemic cardiomyopathy 04/18/2019 Echocardiogram 01/10/19 Dr. Nunez: Dilated left ventricle, left ventricular ejection fraction 40%, mild to moderate systolic dysfunction, moderate concentric LVH, dilated left and right atria. Mild mitral valve thickening with papillary muscle dysfunction, mild mitral valve insufficiency, tricuspid valve insufficiency, aortic valve insufficiency, pulmonic valve insufficiency. Aortic valve calcifi NSTEMI (non-ST elevated myocardial infarction) ([facility]) 03/12/2017 [facility] admit Osteoarthritis Transition of care performed with sharing of clinical summary 04/08/2019 Admit [facility] 03/21/19-03/22/19 Discharge diagnoses chronic kidney disease with worsening creatinine, acute kidney injury Hypokalemia Toxic encephalopathy secondary to Flexeril overusage Type 2 diabetes Ischemic cardiomyopathy Coronary artery disease Ligamental cervical neck strain and acute Pulmonary hypertension Hypertension Pyuria Preadmit: to [facility] ED with slurred speech, lethargy. PAST SURGICAL HISTORY Procedure Laterality Date ARTHRP ACETBLR/PROX FEM PROSTC AGRFT/ALGRFT Right 2019 Dr Peguero CORONARY ARTERY BYPASS GRAFT 04/12/2017 x 3 FEMUR RIGHT OP SURGERY Right Repair of fracture with hardward HIP SURGERY HX Right pin KNEE ARTHROSCOPY Left x2 KNEE SURGERY HX Right TKR, right, arthoscopy x3 PAST SURGICAL HISTORY OF 09/07/2017 08/15/17 fx radius in 2 places; plate and screws.Plate and screws 09/07/17 [facility] TOE SURGERY HX Right ALLERGIES Lyrica [Pregabalin] MEDICATIONS Current Outpatient Medications Medication Sig Tadalafil (CIALIS) 20 mg tablet Take 1 tablet by mouth once daily as needed. Do not take at same time as doxazosin pantoprazole DR (PROTONIX) 40 mg tablet Take 1 tablet by mouth every morning. Insulin [place], Disposable, (BD ULTRA-FINE GOLDY PEN NEEDLE) 32 gauge x Use one needle for each dose. once/day. atorvastatin (LIPITOR) 40 mg tablet Take 1 tablet by mouth daily at bedtime. bumetanide (BUMEX) 2 mg tablet Take 1 tablet by mouth every morning. carvedilol (COREG) 12.5 mg tablet Take 1 tablet by mouth two times a day with meals. LANTUS SOLOSTAR U-100 INSULIN 100 unit/mL (3 mL) Inject 10 Units subcutaneously daily at bedtime. loratadine (CLARITIN) 10 mg tablet Take 1 tablet by mouth once daily. aspirin, enteric coated (ASPIRIN, ENTERIC COATED) 81 mg EC tablet Take 81 mg by mouth once daily. Pt to call and clarify if needs to stop sevelamer carbonate (RENVELA) 800 mg tablet Take 800 mg by mouth three times daily with meals. B Complex-Vitamin C-Folic Acid (NEPHRO-SAVANAH) 0.8 mg tab Take 1 tablet by mouth every morning. melatonin 5 mg tablet Take 10 mg by mouth at bedtime as needed for for insomnia. acetaminophen (TYLENOL EX STR RAPID RELEASE ORAL) Take 1-2 capsules by mouth every 6 hours as needed (pain). doxazosin (CARDURA) 4 mg tablet Take 0.5 tablets by mouth twice daily. latanoprost (XALATAN) 0.005 % ophthalmic solution Use 1 Drop in both eyes daily at bedtime. into affected eye(s). No current facility-administered medications for this visit. FAMILY HISTORY Problem Relation Age of Onset Arthritis Mother Coronary Artery Disease Mother Diabetes Mother Heart Mother Hypertension Mother Alcohol/Drug Father Arthritis Father Heart Father Hypertension Father Social History Tobacco Use Sm (more content not included)... Normal [facility] -- MAURI QUINONES ([id number]) 1955 M Date Time Provider Department 10/06/24 NUPUR DE LA ROSA During your visit today, we recorded the following information about you: Li Bunch 10/06/2024 9:22 AM Signed Patient called for an appt with Dr. De La Rosa, no reason given. Laura Ardon 10/06/2024 10:59 AM Signed Spoke with pt on the phone. Pt stated he spoke with dr de la rosa Sunday night and that dr de la rosa said he needs to be seen in office de[place]ne. And states de la rosa said by wed- dr de la rosa does not have any open appt times by then I offered pt appt on 10/10 with maco rivera. Pt declined. Stating he saw him 2 weeks ago I offered pt appt with dr de la rosa on 10/17. Pt states he can not wait that long Pt was very persistent about seeing dr de la rosa and became irritated with the options I was offering him Pt stated he wanted to speak with Mario- that dr de la rosa recommend he speak to her. I informed pt that mario does not eliza appts. Please advise when to eliza pt Laura Li Lagos 10/06/2024 11:53 AM Signed Per , he did speak to the patient. Please offer one of the open slots on 10/08. Aleshia Vázquez 10/06/2024 12:49 PM Signed Patient scheduled with Dr De La Rosa on 10/08/2024 Allergies As of Date: 10/06/2024 Noted Allergy Reaction LYRICA (PREGABALIN) 03/23/2017 7 - Swelling Date Reviewed: 09/04/2024 Reviewed by: Alexus Mendez APRN.[employer] - Fully Assessed Reason for Visit: Appointment [186] Prescriptions as of 10/06/2024 - HYDROcodone-acetaminophen (NORCO) 5-325 mg per tablet Take 1 tablet by mouth every 8 hours as needed for pain for up to 3 days. - Tadalafil (CIALIS) 20 mg tablet Take 1 tablet by mouth once daily as needed. Do not take at same time as doxazosin - pantoprazole DR (PROTONIX) 40 mg tablet Take 1 tablet by mouth every morning. - Insulin [place], Disposable, (BD ULTRA-FINE GOLDY PEN NEEDLE) 32 gauge x 32 Use one needle for each dose. once/day. - atorvastatin (LIPITOR) 40 mg tablet Take 1 tablet by mouth daily at bedtime. - bumetanide (BUMEX) 2 mg tablet Take 1 tablet by mouth every morning. - carvedilol (COREG) 12.5 mg tablet Take 1 tablet by mouth two times a day with meals. - LANTUS SOLOSTAR U-100 INSULIN 100 unit/mL (3 mL) Inject 10 Units subcutaneously daily at bedtime. - loratadine (CLARITIN) 10 mg tablet Take 1 tablet by mouth once daily. - aspirin, enteric coated (ASPIRIN, ENTERIC COATED) 81 mg EC tablet Take 81 mg by mouth once daily. Pt to call and clarify if needs to stop - sevelamer carbonate (RENVELA) 800 mg tablet Take 800 mg by mouth three times daily with meals. - B Complex-Vitamin C-Folic Acid (NEPHRO-SAVANAH) 0.8 mg tab Take 1 tablet by mouth every morning. - melatonin 5 mg tablet Take 10 mg by mouth at bedtime as needed for for insomnia. - acetaminophen (TYLENOL EX STR RAPID RELEASE ORAL) Take 1-2 capsules by mouth every 6 hours as needed (pain). - doxazosin (CARDURA) 4 mg tablet Take 0.5 tablets by mouth twice daily. - latanoprost (XALATAN) 0.005 % ophthalmic solution Use 1 Drop in both eyes daily at bedtime. into affected eye(s). 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] 09/24/2017 Hypertension, essential [I10] 10/23/2017 Lower leg edema [R60.0] 01/22/2018 12/02/2021 Chronic left hip pain [M25.552, G89.29] 03/04/2018 10/30/2022 Anemia of chronic renal failure, stage 3 (moder*03/05/2018 12/02/2021 Acute on chronic diastolic congestive heart zane*07/14/2018 Recurrent right pleural effusion [J90] 07/14/2018 12/02/2021 PVD (peripheral vascular disease) (HCC) [I73.9] 07/16/2018 Altered mental status [R41.82] 03/24/2019 07/05/2019 UTI (urinary tract infection) [N39.0] 03/24/2019 12/02/2021 Chronic combined systolic and diastolic CHF (co*03/24/2019 Hyperkalemia [E87.5] 03/24/2019 12/02/2021 Hypoxia [R09.02] 03/24/2019 12/02/2021 Hypoalbuminemia [E88.09] 03/24/2019 12/02/2021 GARRET (acute kidney injury) (HCC) [N17.9] 03/24/2019 12/02/2021 CKD (chronic kidney disease) stage 3, GFR 30-59*03/24/2019 04/18/2019 High phosphate levels [E83.39] 03/24/2019 12/02/2021 Hyponatremia [E87.1] 03/24/2019 12/02/2021 Delirium [R41.0] 03/29/2019 12/02/2021 Malnutrition of moderate degree (HCC) [E44.0] 04/01/2019 12/02/2021 Transition of care performed with sharing of cl*04/08/2019 04/18/2019 Chronic kidney disease, stage IV (rodger (more content not included)... Normal [facility] CNOVon 09-22-2024 CNOV Office Visit (ORMDNA ) -- MAURI QUINONES ([id number]) 1955 M Date Time Provider Department 09/22/24 2:00 PM MACO RIVERA ORFABIOLA During your visit today, we recorded the following information about you: Maco Rivera PA-C 09/22/2024 4:18 PM Signed SERVICE DATE: September 22, 2024 PCP: Rigoberto Gould MD Patient was self-referred. Subjective Patient ID: Ted is a 68 year old male. Chief Complaint: Patient presents with: Right Hip - New, Pain PAIN EVALUATION 09/22/2024 1351 Pain Location: Hip-Right Description: Radiating;Sharp;Sore;Achin g radiates through the thigh to knee (along the past incision surgical line) Frequency: Intermittent Intervention/Comfort measure: Medication;Support surface;Imagery tylenol Comments: wearing hinged brace Ted comes today c/o right knee pain. [place] [address] Peguero and Ted states he did well until he had a per-prosthetic femur fracture. He had the fracture plated then went on the break the plate, requiring a retrograde minesh which was done in March of 2023. Ted said he was doing well until a month ago. He denies trauma but has had increased pain and swelling of the right knee. He wears a TROM brace when up and uses a walker for ambulation. Ted takes 1,500 mg of tylenol at night and feels it does help a little. He comes to see if the components are ok and if anything needs to be done. TREATMENTS PRIOR TO INITIAL CONSULT: Right Bracing: TROM brace Right knee multiple surgeries, last one was a retrograde minesh for a sandy-prosthetic knee fracture surgery; Date: March 2023 Tylenol 1,500 mg daily Review of Systems All other systems reviewed and are negative. 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 Arteriosclerotic Heart Disease ([facility]) Glaucoma Suspect of Left Eye Hypertension, Essential Acute On Chronic Diastolic Congestive Heart Failure ([facility]) Pvd (Peripheral Vascular Disease) ([facility]) Chronic Combined Systolic and Diastolic Chf (Congestive Heart Failure) ([facility]) Ischemic Cardiomyopathy History of Coronary Artery Bypass Graft History of Ventricular Tachycardia 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 Due to Underlying Condition ([facility]) Osteopenia, Senile Other Fracture of Right Femur, Initial Encounter for Closed Fracture ([facility]) Blood Loss Anemia Johny (Obstructive Sleep Apnea) Thoracic Compression Fracture, Closed, Initial Encounter ([facility]) Esrd (End Stage Renal Disease) On Dialysis ([facility]) Fracture, Femur, Supracondylar, Right, Open Type I Or II, Initial Encounter ([facility]) Abnormal Ekg Chronic Kidney Disease (Ckd), Stage V ([facility]) Hx of Cabg Preoperative Examination PAST MEDICAL HISTORY Diagnosis Date Acute on chronic diastolic congestive heart failure ([facility]) 07/14/2018 GARRET (acute kidney injury) ([facility]) 03/24/2019 GARRET (acute kidney injury) ([facility]) 03/24/2019 Ankylosing spondylitis ([facility]) CAD (coronary artery disease) Cellulitis Chronic combined systolic and diastolic CHF (congestive heart failure) ([facility]) 03/24/2019 CKD (chronic kidney disease) stage 3, GFR 30-59 ml/min ([facility]) 03/24/2019 Constipation Diabetes ([facility]) Gout High phosphate levels 03/24/2019 History of coronary artery bypass graft 04/18/2019 04/10/17 CARTY to LAD, SVG to PDA, SVG to OM Hx of fracture multiple bones Hyperkalemia 03/24/2019 Hypoalbuminemia 03/24/2019 Hyponatremia 03/24/2019 Hypoxia 03/24/2019 Ischemic cardiomyopathy 04/18/2019 Echocardiogram 01/10/19 Dr. Nunez: Dilated left ventricle, left ventricular ejection fraction 40%, mild to moderate systolic dysfunction, moderate concentric LVH, dilated left and right atria. Mild mitral valve thickening with papillary muscle dysfunction, mild mitral valve insufficiency, tricuspid valve insufficiency, aortic valve insufficiency, pulmonic valve insufficiency. Aortic valve calcifi NSTEMI (non-ST elevated myocardial infarction) (HCC) 03/12/2017 [facility] admit Osteoarthritis Transition of care performed with sharing of clinical summary 04/08/2019 Admit [facility] 03/21/19-03/22/19 Discharge diagnoses chronic kidney disease with worsening creatinine, acute kidney injury Hypokalemia Toxic encephalopathy secondary to Flexeril overusage Type 2 diabetes Ischemic cardiomyopathy Coronary artery disease Ligamental cervical neck strain and acute Pulmonary hypertension Hypertension Pyuria Preadmit: to [facility] ED with slurred speech, lethargy. PAST SURGICAL HISTORY Procedure Laterality Date ARTHRP ACETBLR/PROX FEM PROSTC AGRFT/ALGRFT Right 2018 Dr Peguero CORONARY ARTERY BYPASS GRAFT 04/12/2017 x 3 FEMUR RIGHT OP SURGERY Right Repair of fracture with hardward HIP SURGERY HX Right pin KNEE ARTHROSCOPY Left x2 KNEE YUMIKO (more content not included)... Normal [facility] XR FEMUR 2V AP/LAT RTon 08-28 XR FEMUR 2V AP/LAT RT * * *Final Report* * * DATE OF EXAM: Sep 22 2024 1:56PM LIUDMILA 5333 - XR FEMUR 2V AP/LAT RT / PROCEDURE REASON: multiple diagnoses * * * * Physician Interpretation * * * * PROCEDURE: Pelvis and right femur INDICATION: Pain in right hip .right hip pain (accession [id number]), acute pain right knee (accession [id number]) TECHNIQUE: XR PELVIS 1V AP, XR FEMUR 2V AP/LAT RT COMPARISON: None FINDINGS: Significant osteopenia/osteoporosis. Advanced vascular calcifications. There is a right total knee arthroplasty in satisfactory position. No periprosthetic lucency or fracture. Advanced left hip osteoarthrosis. Symphysis pubis is maintained. Sacroiliac joints are not well visualized. There is a healing distal femoral fracture with intramedullary minesh and screws. Fracture line is still evident. There is a total knee arthroplasty in satisfactory position. No periprosthetic lucency or fracture. Evidence for polyethylene wear. Small joint effusion. IMPRESSION: 1. KEMAR and TKA without evidence for loosening or acute fracture. There is evidence for polyethylene wear in the knee. 2. Healing distal femoral fracture Crts: [facility] Transcribe Date/Time: Sep 24 2024 7:14A Dictated by : SONG DE LA GARZA MD This examination was interpreted and the report reviewed and electronically signed by: SONG DE LA GARZA MD on Sep 24 2024 7:19AM EST [id number] XR PELVIS 1V APon 09-22-2024 XR PELVIS 1V AP * * *Final Report* * * DATE OF EXAM: Sep 22 2024 1:56PM LIUDMILA 5239 - XR PELVIS 1V AP / PROCEDURE REASON: [id number]-Pain in right hip * * * * Physician Interpretation * * * * PROCEDURE: Pelvis and right femur INDICATION: Pain in right hip .right hip pain (accession [id number]), acute pain right knee (accession [id number]) TECHNIQUE: XR PELVIS 1V AP, XR FEMUR 2V AP/LAT RT COMPARISON: None FINDINGS: Significant osteopenia/osteoporosis. Advanced vascular calcifications. There is a right total knee arthroplasty in satisfactory position. No periprosthetic lucency or fracture. Advanced left hip osteoarthrosis. Symphysis pubis is maintained. Sacroiliac joints are not well visualized. There is a healing distal femoral fracture with intramedullary minesh and screws. Fracture line is still evident. There is a total knee arthroplasty in satisfactory position. No periprosthetic lucency or fracture. Evidence for polyethylene wear. Small joint effusion. IMPRESSION: 1. KEMAR and TKA without evidence for loosening or acute fracture. There is evidence for polyethylene wear in the knee. 2. Healing distal femoral fracture Crts: [facility] Transcribe Date/Time: Sep 24 2024 7:14A Dictated by : SONG DE LA GARZA MD This examination was interpreted and the report reviewed and electronically signed by: SONG DE LA GARZA MD on Sep 24 2024 7:19AM EST [id number] CNOVon 09-04-2024 [facility] -- MAURI QUINONES ([id number]) 1955 M Date Time Provider Department 09/04/24 8:00 AM ALEXUS MENDEZWS During your visit today, we recorded the following information about you: Temperature Pulse Blood pressure 97 degrees 91/minute 122/60 Alexus Mendez, SQL TECH.GUN FERTILIZER 09/04/2024 8:32 AM Addendum This is a 68 year old male who presents today with: Patient presents with: Acute Visit: Diarrhea and vomiting for 1 week, starting to subside. No fever HISTORY OF PRESENT ILLNESS: Mauri Quinones is a 68 year old male. Patient presents with: Acute Visit: Diarrhea and vomiting for 1 week, starting to subside. No fever States he is feeling better, today. Still, too late for dialysis today. Vomited only twice. Drinking at least 28 oz. Gatorade. Taking pepto-bismol, coricidin HBP Had diarrhea and cramps. No further abdominal pain. Last night feeling better. Sick for 5 days A little weak. Hasn't eaten much . Didn't even check blood sugar today Has not gained weight PAST MEDICAL HISTORY: PAST MEDICAL HISTORY Diagnosis Date Acute on chronic diastolic congestive heart failure ([facility]) 07/14/2018 GARRET (acute kidney injury) ([facility]) 03/24/2019 GARRET (acute kidney injury) ([facility]) 03/24/2019 Ankylosing spondylitis ([facility]) CAD (coronary artery disease) Cellulitis Chronic combined systolic and diastolic CHF (congestive heart failure) ([facility]) 03/24/2019 CKD (chronic kidney disease) stage 3, GFR 30-59 ml/min ([facility]) 03/24/2019 Constipation Diabetes ([facility]) Gout High phosphate levels 03/24/2019 History of coronary artery bypass graft 04/18/2019 04/10/17 CARTY to LAD, SVG to PDA, SVG to OM Hx of fracture multiple bones Hyperkalemia 03/24/2019 Hypoalbuminemia 03/24/2019 Hyponatremia 03/24/2019 Hypoxia 03/24/2019 Ischemic cardiomyopathy 04/18/2019 Echocardiogram 01/10/19 Dr. Nunez: Dilated left ventricle, left ventricular ejection fraction 40%, mild to moderate systolic dysfunction, moderate concentric LVH, dilated left and right atria. Mild mitral valve thickening with papillary muscle dysfunction, mild mitral valve insufficiency, tricuspid valve insufficiency, aortic valve insufficiency, pulmonic valve insufficiency. Aortic valve calcifi NSTEMI (non-ST elevated myocardial infarction) (HCC) 03/12/2017 [facility] admit Osteoarthritis Transition of care performed with sharing of clinical summary 04/08/2019 Admit [facility] 03/21/19-03/22/19 Discharge diagnoses chronic kidney disease with worsening creatinine, acute kidney injury Hypokalemia Toxic encephalopathy secondary to Flexeril overusage Type 2 diabetes Ischemic cardiomyopathy Coronary artery disease Ligamental cervical neck strain and acute Pulmonary hypertension Hypertension Pyuria Preadmit: to [facility] ED with slurred speech, lethargy. PAST SURGICAL HISTORY Procedure Laterality Date ARTHRP ACETBLR/PROX FEM PROSTC AGRFT/ALGRFT Right 2018 Dr Peguero CORONARY ARTERY BYPASS GRAFT 04/12/2017 x 3 FEMUR RIGHT OP SURGERY Right Repair of fracture with hardward HIP SURGERY HX Right pin KNEE ARTHROSCOPY Left x2 KNEE SURGERY HX Right TKR, right, arthoscopy x3 PAST SURGICAL HISTORY OF 09/07/2017 08/15/17 fx radius in 2 places; plate and screws.Plate and screws 09/07/17 [facility] TOE SURGERY HX Right ALLERGIES Lyrica [Pregabalin] MEDICATIONS Current Outpatient Medications Medication Sig Tadalafil (CIALIS) 20 mg tablet Take 1 tablet by mouth once daily as needed. Do not take at same time as doxazosin pantoprazole DR (PROTONIX) 40 mg tablet Take 1 tablet by mouth every morning. Insulin [place], Disposable, (BD ULTRA-FINE GOLDY PEN NEEDLE) 32 gauge x Use one needle for each dose. once/day. atorvastatin (LIPITOR) 40 mg tablet Take 1 tablet by mouth daily at bedtime. bumetanide (BUMEX) 2 mg tablet Take 1 tablet by mouth every morning. carvedilol (COREG) 12.5 mg tablet Take 1 tablet by mouth two times a day with meals. LANTUS SOLOSTAR U-100 INSULIN 100 unit/mL (3 mL) Inject 10 Units subcutaneously daily at bedtime. loratadine (CLARITIN) 10 mg tablet Take 1 tablet by mouth once daily. traMADol (ULTRAM) 50 mg tablet Take 50 mg by mouth every 6 hours as needed for pain. aspirin, enteric coated (ASPIRIN, ENTERIC COATED) 81 mg EC tablet Take 81 mg by mouth once daily. Pt to call and clarify if needs to stop sevelamer carbonate (RENVELA) 800 mg tablet Take 800 mg by mouth three times daily with meals. B Complex-Vitamin C-Folic Acid (NEPHRO-SAVANAH) 0.8 mg tab Take 1 tablet by mouth every morning. melatonin 5 mg tablet Take 10 mg by mouth at bedtime as needed for for insomnia. acetaminophen (TYLENOL EX STR RAPID RELEASE ORAL) Take 1-2 capsules by mouth every 6 hours as needed (pain). doxazosin (CARDURA) 4 mg tablet Take 0.5 tablets by mouth twice daily. latanoprost (XALATAN) 0.005 % ophthalmic solution (more content not included)... Normal [facility] Aniket 09-03-2024 [facility] Telephone ([place]) -- MAURI QUINONES ([id number]) 1955 M Date Time Provider Department 09/03/24 ALEXUS MENDEZ During your visit today, we recorded the following information about you: Rebecca Moe LPN 09/03/2024 3:17 PM Signed Patient calling said he has had the flu since Sunday last week. He has not been able to go to dialysis this week. His days are Sunday, and Sunday, last day there was last . He is complaining of abdominal pain, left sided area above his umbilical area, all day today. He has vomited twice today and diarrhea just keeps going on. Advised patient would need evaluated in the ER since no dialysis this week and the abdominal pain. He has appt scheduled for tomorrow with Simeon Mendez at 8 am. Rigoberto Gould MD 09/03/2024 3:23 PM Signed Agree with Er. She would just send him tomorrow if he came in. Allergies As of Date: 09/03/2024 Noted Allergy Reaction LYRICA (PREGABALIN) 03/23/2017 7 - Swelling Date Reviewed: 06/30/2024 Reviewed by: Alexus Mendez APRN.GUN FERTILIZER - Fully Assessed Reason for Visit: Patient Update [1234] Prescriptions as of 09/03/2024 - Tadalafil (CIALIS) 20 mg tablet Take 1 tablet by mouth once daily as needed. Do not take at same time as doxazosin - pantoprazole DR (PROTONIX) 40 mg tablet Take 1 tablet by mouth every morning. - Insulin [place], Disposable, (BD ULTRA-FINE GOLDY PEN NEEDLE) 32 gauge x 5/32 Use one needle for each dose. once/day. - atorvastatin (LIPITOR) 40 mg tablet Take 1 tablet by mouth daily at bedtime. - bumetanide (BUMEX) 2 mg tablet Take 1 tablet by mouth every morning. - carvedilol (COREG) 12.5 mg tablet Take 1 tablet by mouth two times a day with meals. - LANTUS SOLOSTAR U-100 INSULIN 100 unit/mL (3 mL) Inject 10 Units subcutaneously daily at bedtime. - loratadine (CLARITIN) 10 mg tablet Take 1 tablet by mouth once daily. - traMADol (ULTRAM) 50 mg tablet Take 50 mg by mouth every 6 hours as needed for pain. - aspirin, enteric coated (ASPIRIN, ENTERIC COATED) 81 mg EC tablet Take 81 mg by mouth once daily. Pt to call and clarify if needs to stop - sevelamer carbonate (RENVELA) 800 mg tablet Take 800 mg by mouth three times daily with meals. - B Complex-Vitamin C-Folic Acid (NEPHRO-SAVANAH) 0.8 mg tab Take 1 tablet by mouth every morning. - melatonin 5 mg tablet Take 10 mg by mouth at bedtime as needed for for insomnia. - acetaminophen (TYLENOL EX STR RAPID RELEASE ORAL) Take 1-2 capsules by mouth every 6 hours as needed (pain). - doxazosin (CARDURA) 4 mg tablet Take 0.5 tablets by mouth twice daily. - latanoprost (XALATAN) 0.005 % ophthalmic solution Use 1 Drop in both eyes daily at bedtime. into affected eye(s). 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] 09/24/2017 Hypertension, essential [I10] 10/23/2017 Lower leg edema [R60.0] 01/22/2018 12/02/2021 Chronic left hip pain [M25.552, G89.29] 03/04/2018 10/30/2022 Anemia of chronic renal failure, stage 3 (moder*03/05/2018 12/02/2021 Acute on chronic diastolic congestive heart zane*07/14/2018 Recurrent right pleural effusion [J90] 07/14/2018 12/02/2021 PVD (peripheral vascular disease) (HCC) [I73.9] 07/16/2018 Altered mental status [R41.82] 03/24/2019 07/05/2019 UTI (urinary tract infection) [N39.0] 03/24/2019 12/02/2021 Chronic combined systolic and diastolic CHF (co*03/24/2019 Hyperkalemia [E87.5] 03/24/2019 12/02/2021 Hypoxia [R09.02] 03/24/2019 12/02/2021 Hypoalbuminemia [E88.09] 03/24/2019 12/02/2021 GARRET (acute kidney injury) (HCC) [N17.9] 03/24/2019 12/02/2021 CKD (chronic kidney disease) stage 3, GFR 30-59*03/24/2019 04/18/2019 High phosphate levels [E83.39] 03/24/2019 12/02/2021 Hyponatremia [E87.1] 03/24/2019 12/02/2021 Delirium [R41.0] 03/29/2019 12/02/2021 Malnutrition of moderate degree (HCC) [E44.0] 04/01/2019 12/02/2021 Transition of care performed with sharing of cl*04/08/2019 04/18/2019 Chronic kidney disease, stage IV (severe) (HCC)*04/18/2019 12/02/2021 Ischemic cardiomyopathy [I25.5] 04/18/2019 Sprain of ligament of cervical spine region [S1*04/18/2019 12/02/2021 History of coronary artery bypass graft [Z95.1] 04/18/2019 History of ventricular tachycardia [Z86.79] 04/18/2019 Proliferative retinopathy of both eyes associat*06/17/2019 Flaccid neuropathic bladder, not elsewhere clas*06/04/2020 12/02/2021 Encounter for support and coordination of trans*02 (more content not included)... [facility] -- MAURI QUINONES ([id number]) 1955 M Date Time Provider Department 09/01/24 [facility] G[facility] During your visit today, we recorded the following information about you: Bryce Landin, RN 09/01/2024 1:57 PM Signed Pt called in and reports he got the stomach bug on Sunday night 08/29. He states he threw up once on Sunday and diarrhea 5-6 x a day started Sunday night. Pt states he doesn't feel like he has any symptoms aside from the cramping. He was asking if there was anything OTC he could take for the cramping. He said he thinks they used to take Pepto Bismol.Pt sates he has been drinking 2 small 7.9 oz Gatorades and 1 16 oz bottle of water a day to keep from getting dehydrated. He said he ate 4 pieces of toast yesterday and 2 today, but that is all he could eat. Please call and advise. Rigoberto Gould MD 09/01/2024 1:58 PM Signed Not much otc counter. Brat diet and fluids, if continues or worsens, needs seen Bryce Landin RN 09/01/2024 2:07 PM Signed Sent message to Pt in [employer] [place] as he asked. Allergies As of Date: 09/01/2024 Noted Allergy Reaction LYRICA (PREGABALIN) 03/23/2017 7 - Swelling Date Reviewed: 06/30/2024 Reviewed by: Alexus Mendez APRN.GUN FERTILIZER - Fully Assessed Reason for Visit: Patient Update [2794] Patient Question [0261] Prescriptions as of 09/01/2024 - Tadalafil (CIALIS) 20 mg tablet Take 1 tablet by mouth once daily as needed. Do not take at same time as doxazosin - pantoprazole DR (PROTONIX) 40 mg tablet Take 1 tablet by mouth every morning. - Insulin [place], Disposable, (BD ULTRA-FINE GOLDY PEN NEEDLE) 32 gauge x Use one needle for each dose. once/day. - atorvastatin (LIPITOR) 40 mg tablet Take 1 tablet by mouth daily at bedtime. - bumetanide (BUMEX) 2 mg tablet Take 1 tablet by mouth every morning. - carvedilol (COREG) 12.5 mg tablet Take 1 tablet by mouth two times a day with meals. - LANTUS SOLOSTAR U-100 INSULIN 100 unit/mL (3 mL) Inject 10 Units subcutaneously daily at bedtime. - loratadine (CLARITIN) 10 mg tablet Take 1 tablet by mouth once daily. - traMADol (ULTRAM) 50 mg tablet Take 50 mg by mouth every 6 hours as needed for pain. - aspirin, enteric coated (ASPIRIN, ENTERIC COATED) 81 mg EC tablet Take 81 mg by mouth once daily. Pt to call and clarify if needs to stop - sevelamer carbonate (RENVELA) 800 mg tablet Take 800 mg by mouth three times daily with meals. - B Complex-Vitamin C-Folic Acid (NEPHRO-SAVANAH) 0.8 mg tab Take 1 tablet by mouth every morning. - melatonin 5 mg tablet Take 10 mg by mouth at bedtime as needed for for insomnia. - acetaminophen (TYLENOL EX STR RAPID RELEASE ORAL) Take 1-2 capsules by mouth every 6 hours as needed (pain). - doxazosin (CARDURA) 4 mg tablet Take 0.5 tablets by mouth twice daily. - latanoprost (XALATAN) 0.005 % ophthalmic solution Use 1 Drop in both eyes daily at bedtime. into affected eye(s). 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] 09/24/2017 Hypertension, essential [I10] 10/23/2017 Lower leg edema [R60.0] 01/22/2018 12/02/2021 Chronic left hip pain [M25.552, G89.29] 03/04/2018 10/30/2022 Anemia of chronic renal failure, stage 3 (moder*03/05/2018 12/02/2021 Acute on chronic diastolic congestive heart zane*07/14/2018 Recurrent right pleural effusion [J90] 07/14/2018 12/02/2021 PVD (peripheral vascular disease) (HCC) [I73.9] 07/16/2018 Altered mental status [R41.82] 03/24/2019 07/05/2019 UTI (urinary tract infection) [N39.0] 03/24/2019 12/02/2021 Chronic combined systolic and diastolic CHF (co*03/24/2019 Hyperkalemia [E87.5] 03/24/2019 12/02/2021 Hypoxia [R09.02] 03/24/2019 12/02/2021 Hypoalbuminemia [E88.09] 03/24/2019 12/02/2021 GARRET (acute kidney injury) (HCC) [N17.9] 03/24/2019 12/02/2021 CKD (chronic kidney disease) stage 3, GFR 30-59*03/24/2019 04/18/2019 High phosphate levels [E83.39] 03/24/2019 12/02/2021 Hyponatremia [E87.1] 03/24/2019 12/02/2021 Delirium [R41.0] 03/29/2019 12/02/2021 Malnutrition of moderate degree (HCC) [E44.0] 04/01/2019 12/02/2021 Transition of care performed with sharing of cl*04/08/2019 04/18/2019 Chronic kidney disease, stage IV (severe) (HCC)*04/18/2019 12/02/2021 Ischemic cardiomyopathy [I25.5] 04/18/2019 Sprain of ligament of cervical spine region [S1*04/18/2019 12/02/2021 History of coronary artery bypass graft [Z95.1] 04/18/2019 History of ventricular tachycardi (more content not included)... Normal [facility] CNPNon 08-25-2024 [facility]NP[facility] Telephone ([facility]) -- MAURI QUINONES ([id number]) 1955 M Date Time Provider Department 08/25/24 NUPUR DE LA ROSA ORFABIOLA During your visit today, we recorded the following information about you: Isabela Rosado, BISMARK 08/25/2024 1:47 PM Signed Patient calling with pain between right hip and knee Please call pt and offer Friday 09/01 with Luciana Pena 08/25/2024 2:01 PM Signed Lvm for patient to call back and schedule with Cara on sunday Allergies As of Date: 08/25/2024 Noted Allergy Reaction LYRICA (PREGABALIN) 03/23/2017 7 - Swelling Date Reviewed: 06/30/2024 Reviewed by: Alexus Mendez APRN.GUN FERTILIZER - Fully Assessed Reason for Visit: Appointment [186] Prescriptions as of 08/28/2024 - Tadalafil (CIALIS) 20 mg tablet Take 1 tablet by mouth once daily as needed. Do not take at same time as doxazosin - pantoprazole DR (PROTONIX) 40 mg tablet Take 1 tablet by mouth every morning. - Insulin [place], Disposable, (BD ULTRA-FINE GOLDY PEN NEEDLE) 32 gauge x 5/32 Use one needle for each dose. once/day. - atorvastatin (LIPITOR) 40 mg tablet Take 1 tablet by mouth daily at bedtime. - bumetanide (BUMEX) 2 mg tablet Take 1 tablet by mouth every morning. - carvedilol (COREG) 12.5 mg tablet Take 1 tablet by mouth two times a day with meals. - LANTUS SOLOSTAR U-100 INSULIN 100 unit/mL (3 mL) Inject 10 Units subcutaneously daily at bedtime. - loratadine (CLARITIN) 10 mg tablet Take 1 tablet by mouth once daily. - traMADol (ULTRAM) 50 mg tablet Take 50 mg by mouth every 6 hours as needed for pain. - aspirin, enteric coated (ASPIRIN, ENTERIC COATED) 81 mg EC tablet Take 81 mg by mouth once daily. Pt to call and clarify if needs to stop - sevelamer carbonate (RENVELA) 800 mg tablet Take 800 mg by mouth three times daily with meals. - B Complex-Vitamin C-Folic Acid (NEPHRO-SAVANAH) 0.8 mg tab Take 1 tablet by mouth every morning. - melatonin 5 mg tablet Take 10 mg by mouth at bedtime as needed for for insomnia. - acetaminophen (TYLENOL EX STR RAPID RELEASE ORAL) Take 1-2 capsules by mouth every 6 hours as needed (pain). - doxazosin (CARDURA) 4 mg tablet Take 0.5 tablets by mouth twice daily. - latanoprost (XALATAN) 0.005 % ophthalmic solution Use 1 Drop in both eyes daily at bedtime. into affected eye(s). 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] 09/24/2017 Hypertension, essential [I10] 10/23/2017 Lower leg edema [R60.0] 01/22/2018 12/02/2021 Chronic left hip pain [M25.552, G89.29] 03/04/2018 10/30/2022 Anemia of chronic renal failure, stage 3 (moder*03/05/2018 12/02/2021 Acute on chronic diastolic congestive heart zane*07/14/2018 Recurrent right pleural effusion [J90] 07/14/2018 12/02/2021 PVD (peripheral vascular disease) (HCC) [I73.9] 07/16/2018 Altered mental status [R41.82] 03/24/2019 07/05/2019 UTI (urinary tract infection) [N39.0] 03/24/2019 12/02/2021 Chronic combined systolic and diastolic CHF (co*03/24/2019 Hyperkalemia [E87.5] 03/24/2019 12/02/2021 Hypoxia [R09.02] 03/24/2019 12/02/2021 Hypoalbuminemia [E88.09] 03/24/2019 12/02/2021 GARRET (acute kidney injury) (HCC) [N17.9] 03/24/2019 12/02/2021 CKD (chronic kidney disease) stage 3, GFR 30-59*03/24/2019 04/18/2019 High phosphate levels [E83.39] 03/24/2019 12/02/2021 Hyponatremia [E87.1] 03/24/2019 12/02/2021 Delirium [R41.0] 03/29/2019 12/02/2021 Malnutrition of moderate degree (HCC) [E44.0] 04/01/2019 12/02/2021 Transition of care performed with sharing of cl*04/08/2019 04/18/2019 Chronic kidney disease, stage IV (severe) (HCC)*04/18/2019 12/02/2021 Ischemic cardiomyopathy [I25.5] 04/18/2019 Sprain of ligament of cervical spine region [S1*04/18/2019 12/02/2021 History of coronary artery bypass graft [Z95.1] 04/18/2019 History of ventricular tachycardia [Z86.79] 04/18/2019 Proliferative retinopathy of both eyes associat*06/17/2019 Flaccid neuropathic bladder, not elsewhere clas*06/04/2020 12/02/2021 Encounter for support and coordination of trans*10/06/2020 12/02/2021 Osteopenia, senile [M85.80] 10/06/2020 Other fracture of right femur, initial encounte*04/23/2022 UGIB (upper gastrointestinal bleed) [K92.2] 04/30/2022 10/30/2022 Blood loss anemia [D50.0] 04/30/2022 JOHNY (obstructive sleep apnea) [G47.33] 04/30/2022 Thoracic compression fracture, closed, initial *05/07/2022 ESRD (end stage renal disease) on dialysis (HCC*06/05/2022 Fracture, femur (more content not included)... Normal [facility] 07[facility]15[facility]2024 [facility] -- MAURI QUINONES ([id number]) 1955 M Date Time Provider Department 07/15/24 [facility] During your visit today, we recorded the following information about you: Alexus Mendez APRN.[employer] 07/15/2024 12:48 PM Signed Lab work from dialysis July 08, 2024: WBC 6.59, hemoglobin 10.7, hematocrit 31.2, platelet count 171 Sodium 135, potassium 5.3, BUN 86, creatinine 5.61, glucose not listed Parathyroid hormone intact 316, corrected calcium 10.1, ferritin 1601 HDL 40, LDL 52 Please let patient know that cholesterol levels look good. All other studies are managed by dialysis. Garrison Olmedo MA 07/15/2024 3:02 PM Signed Patient was made aware of the results. Patient verbalizes understanding. Garrison Olmedo Ma Allergies As of Date: 07/15/2024 Noted Allergy Reaction LYRICA (PREGABALIN) 03/23/2017 7 - Swelling Date Reviewed: 06/30/2024 Reviewed by: Alexus Mendez APRN.[employer] - Fully Assessed Prescriptions as of 07/15/2024 - Tadalafil (CIALIS) 20 mg tablet Take 1 tablet by mouth once daily as needed. Do not take at same time as doxazosin - pantoprazole DR (PROTONIX) 40 mg tablet Take 1 tablet by mouth every morning. - Insulin [place], Disposable, (BD ULTRA-FINE GOLDY PEN NEEDLE) 32 gauge x 32 Use one needle for each dose. once/day. - atorvastatin (LIPITOR) 40 mg tablet Take 1 tablet by mouth daily at bedtime. - bumetanide (BUMEX) 2 mg tablet Take 1 tablet by mouth every morning. - carvedilol (COREG) 12.5 mg tablet Take 1 tablet by mouth two times a day with meals. - LANTUS SOLOSTAR U-100 INSULIN 100 unit/mL (3 mL) Inject 10 Units subcutaneously daily at bedtime. - loratadine (CLARITIN) 10 mg tablet Take 1 tablet by mouth once daily. - traMADol (ULTRAM) 50 mg tablet Take 50 mg by mouth every 6 hours as needed for pain. - aspirin, enteric coated (ASPIRIN, ENTERIC COATED) 81 mg EC tablet Take 81 mg by mouth once daily. Pt to call and clarify if needs to stop - sevelamer carbonate (RENVELA) 800 mg tablet Take 800 mg by mouth three times daily with meals. - B Complex-Vitamin C-Folic Acid (NEPHRO-SAVANAH) 0.8 mg tab Take 1 tablet by mouth every morning. - melatonin 5 mg tablet Take 10 mg by mouth at bedtime as needed for for insomnia. - acetaminophen (TYLENOL EX STR RAPID RELEASE ORAL) Take 1-2 capsules by mouth every 6 hours as needed (pain). - doxazosin (CARDURA) 4 mg tablet Take 0.5 tablets by mouth twice daily. - latanoprost (XALATAN) 0.005 % ophthalmic solution Use 1 Drop in both eyes daily at bedtime. into affected eye(s). 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] 09/24/2017 Hypertension, essential [I10] 10/23/2017 Lower leg edema [R60.0] 01/22/2018 12/02/2021 Chronic left hip pain [M25.552, G89.29] 03/04/2018 10/30/2022 Anemia of chronic renal failure, stage 3 (moder*03/05/2018 12/02/2021 Acute on chronic diastolic congestive heart zane*07/14/2018 Recurrent right pleural effusion [J90] 07/14/2018 12/02/2021 PVD (peripheral vascular disease) (HCC) [I73.9] 07/16/2018 Altered mental status [R41.82] 03/24/2019 07/05/2019 UTI (urinary tract infection) [N39.0] 03/24/2019 12/02/2021 Chronic combined systolic and diastolic CHF (co*03/24/2019 Hyperkalemia [E87.5] 03/24/2019 12/02/2021 Hypoxia [R09.02] 03/24/2019 12/02/2021 Hypoalbuminemia [E88.09] 03/24/2019 12/02/2021 GARRET (acute kidney injury) (HCC) [N17.9] 03/24/2019 12/02/2021 CKD (chronic kidney disease) stage 3, GFR 30-59*03/24/2019 04/18/2019 High phosphate levels [E83.39] 03/24/2019 12/02/2021 Hyponatremia [E87.1] 03/24/2019 12/02/2021 Delirium [R41.0] 03/29/2019 12/02/2021 Malnutrition of moderate degree (HCC) [E44.0] 04/01/2019 12/02/2021 Transition of care performed with sharing of cl*04/08/2019 04/18/2019 Chronic kidney disease, stage IV (severe) (HCC)*04/18/2019 12/02/2021 Ischemic cardiomyopathy [I25.5] 04/18/2019 Sprain of ligament of cervical spine region [S1*04/18/2019 12/02/2021 History of coronary artery bypass graft [Z95.1] 04/18/2019 History of ventricular tachycardia [Z86.79] 04/18/2019 Proliferative retinopathy of both eyes associat*06/17/2019 Flaccid neuropathic bladder, not elsewhere clas*06/04/2020 12/02/2021 Encounter for support and coordination of trans*10/06/2020 12/02/2021 Osteopenia, senile [M85.80] 10/06/2020 Other fracture of right femur, initial encounte*04/23/2022 UGIB (upper gastrointestin (more content not included)... Normal [facility] CNOVon 06-30-2024 CNOV Office Visit ([facility] ) -- MAURI QUINONES ([id number]) 1955 M Date Time Provider Department 06/30/24 12:40 PM ALEXUS MENDEZ [facility] During your visit today, we recorded the following information about you: Pulse Respiration Blood pressure Weight 60/minute 16/minute 118/62 77.6 kg Alexus Mendez, SQL TECH.GUN FERTILIZER 06/30/2024 1:21 PM Signed This is a 68 year old male who presents today with: Patient presents with: Follow Up: 3 month exam HISTORY OF PRESENT ILLNESS: Mauri Quinones is a 68 year old male. Patient presents with: Follow Up: 3 month exam Needs a HgA1c. Broken knee is coming along. Healed. PAST MEDICAL HISTORY: PAST MEDICAL HISTORY Diagnosis Date Acute on chronic diastolic congestive heart failure ([facility]) 07/14/2018 GARRET (acute kidney injury) ([facility]) 03/24/2019 GARRET (acute kidney injury) ([facility]) 03/24/2019 Ankylosing spondylitis ([facility]) CAD (coronary artery disease) Cellulitis Chronic combined systolic and diastolic CHF (congestive heart failure) ([facility]) 03/24/2019 CKD (chronic kidney disease) stage 3, GFR 30-59 ml/min ([facility]) 03/24/2019 Constipation Diabetes ([facility]) Gout High phosphate levels 03/24/2019 History of coronary artery bypass graft 04/18/2019 04/10/17 CARTY to LAD, SVG to PDA, SVG to OM Hx of fracture multiple bones Hyperkalemia 03/24/2019 Hypoalbuminemia 03/24/2019 Hyponatremia 03/24/2019 Hypoxia 03/24/2019 Ischemic cardiomyopathy 04/18/2019 Echocardiogram 01/10/19 Dr. Nunez: Dilated left ventricle, left ventricular ejection fraction 40%, mild to moderate systolic dysfunction, moderate concentric LVH, dilated left and right atria. Mild mitral valve thickening with papillary muscle dysfunction, mild mitral valve insufficiency, tricuspid valve insufficiency, aortic valve insufficiency, pulmonic valve insufficiency. Aortic valve calcifi NSTEMI (non-ST elevated myocardial infarction) ([facility]) 03/12/2017 [facility] admit Osteoarthritis Transition of care performed with sharing of clinical summary 04/08/2019 Admit [facility] 03/21/19-03/22/19 Discharge diagnoses chronic kidney disease with worsening creatinine, acute kidney injury Hypokalemia Toxic encephalopathy secondary to Flexeril overusage Type 2 diabetes Ischemic cardiomyopathy Coronary artery disease Ligamental cervical neck strain and acute Pulmonary hypertension Hypertension Pyuria Preadmit: to [facility] ED with slurred speech, lethargy. PAST SURGICAL HISTORY Procedure Laterality Date ARTHRP ACETBLR/PROX FEM PROSTC AGRFT/ALGRFT Right 2019 Dr Peguero CORONARY ARTERY BYPASS GRAFT 04/12/2017 x 3 FEMUR RIGHT OP SURGERY Right Repair of fracture with hardward HIP SURGERY HX Right pin KNEE ARTHROSCOPY Left x2 KNEE SURGERY HX Right TKR, right, arthoscopy x3 PAST SURGICAL HISTORY OF 09/07/2017 08/15/17 fx radius in 2 places; plate and screws.Plate and screws 09/07/17 [facility] TOE SURGERY HX Right ALLERGIES Lyrica [Pregabalin] MEDICATIONS Current Outpatient Medications Medication Sig loratadine (CLARITIN) 10 mg tablet Take 1 tablet by mouth once daily. traMADol (ULTRAM) 50 mg tablet Take 50 mg by mouth every 6 hours as needed for pain. aspirin, enteric coated (ASPIRIN, ENTERIC COATED) 81 mg EC tablet Take 81 mg by mouth once daily. Pt to call and clarify if needs to stop pantoprazole DR (PROTONIX) 40 mg tablet Take 1 tablet by mouth twice daily before meals (0600/1600). (Patient taking differently: Take 40 mg by mouth every morning.) sevelamer carbonate (RENVELA) 800 mg tablet Take 800 mg by mouth three times daily with meals. B Complex-Vitamin C-Folic Acid (NEPHRO-SAVANAH) 0.8 mg tab Take 1 tablet by mouth every morning. bumetanide (BUMEX) 2 mg tablet Take 2 mg by mouth every morning. melatonin 5 mg tablet Take 10 mg by mouth at bedtime as needed for for insomnia. acetaminophen (TYLENOL EX STR RAPID RELEASE ORAL) Take 1-2 capsules by mouth every 6 hours as needed (pain). atorvastatin (LIPITOR) 40 mg tablet Take 40 mg by mouth daily at bedtime. doxazosin (CARDURA) 4 mg tablet Take 0.5 tablets by mouth twice daily. carvedilol (COREG) 25 mg tablet Take 12.5 mg by mouth twice daily with meals. latanoprost (XALATAN) 0.005 % ophthalmic solution Use 1 Drop in both eyes daily at bedtime. into affected eye(s). insulin detemir U-100 (LEVEMIR FLEXTOUCH U-100 INSULN) 100 unit/mL (3 mL) injection pen Inject 15 Units subcutaneously daily at bedtime. (Patient taking differently: Inject 8 Units subcutaneously daily at bedtime. Levels have been good so he currently is not taking unless BS elevates) No current facility-administered medications for this visit. FAMILY HISTORY Problem Relation Age of Onset Arthritis Mother Coronary Artery Disease Mother Diabetes Mother Heart Mother Hypertension Mother Alcohol/Drug Father Arthritis Father Heart Father Hypertension Father Social Histo (more content not included)... [facility] -- MAURI QUINONES ([id number]) 1955 M Date Time Provider Department 06/30/24 [facility] During your visit today, we recorded the following information about you: Garrison Olmedo MA 06/30/2024 5:24 PM Signed Fax received from [facility] that Lantus Solostar is not covered and needs to get vials. Spoke with patient and he will not use vials, asking for the prescription to be run through his mail order to see if it will be covered as he has two insurance coverages. Garrison Olmedo MA June 30, 2024 5:23 PM Alexus Mendez APRN.CNP 06/30/2024 5:43 PM Signed Lantus Solostar pens Ordered Farrah Benz RN 07/02/2024 9:00 AM Signed Patient calls to see the status of below. Patient notified that medication was sent to mail away pharmacy. Patient asking if provider sent in prescription for Cialis to [facility]? Please review and advise, Farrah Hastings RN Allergies As of Date: 06/30/2024 Noted Allergy Reaction LYRICA (PREGABALIN) 03/23/2017 7 - Swelling Date Reviewed: 06/30/2024 Reviewed by: Alexus Mendez APRN.[facility] - Fully Assessed Reason for Visit: Medication Problem [65] Primary Visit Diagnosis:ED (erectile dysfunction) of organic origin [N52.9] Other Visit Diagnoses:Gastrointestinal hemorrhage, unspecified gastrointestinal hemorrhage type [K92.2] Type 2 diabetes mellitus without complication, with long-term current use of insulin (HCC) [E11.9, Z79.4] Order(s):LANTUS SOLOSTAR U-100 INSULIN 100 unit/mL (3 mL)Inject 10 Units subcutaneously daily at bedtime.Disp: 9 mLRfl: 3 Tadalafil (CIALIS) 20 mg tabletTake 1 tablet by mouth once daily as needed. Do not take at same time as doxazosinDisp: 30 tabletRfl: 11 Prescriptions as of 07/11/2024 - Tadalafil (CIALIS) 20 mg tablet Take 1 tablet by mouth once daily as needed. Do not take at same time as doxazosin - pantoprazole DR (PROTONIX) 40 mg tablet Take 1 tablet by mouth every morning. - Insulin [place], Disposable, (BD ULTRA-FINE GOLDY PEN NEEDLE) 32 gauge x Use one needle for each dose. once/day. - atorvastatin (LIPITOR) 40 mg tablet Take 1 tablet by mouth daily at bedtime. - bumetanide (BUMEX) 2 mg tablet Take 1 tablet by mouth every morning. - carvedilol (COREG) 12.5 mg tablet Take 1 tablet by mouth two times a day with meals. - LANTUS SOLOSTAR U-100 INSULIN 100 unit/mL (3 mL) Inject 10 Units subcutaneously daily at bedtime. - loratadine (CLARITIN) 10 mg tablet Take 1 tablet by mouth once daily. - traMADol (ULTRAM) 50 mg tablet Take 50 mg by mouth every 6 hours as needed for pain. - aspirin, enteric coated (ASPIRIN, ENTERIC COATED) 81 mg EC tablet Take 81 mg by mouth once daily. Pt to call and clarify if needs to stop - sevelamer carbonate (RENVELA) 800 mg tablet Take 800 mg by mouth three times daily with meals. - B Complex-Vitamin C-Folic Acid (NEPHRO-SAVANAH) 0.8 mg tab Take 1 tablet by mouth every morning. - melatonin 5 mg tablet Take 10 mg by mouth at bedtime as needed for for insomnia. - acetaminophen (TYLENOL EX STR RAPID RELEASE ORAL) Take 1-2 capsules by mouth every 6 hours as needed (pain). - doxazosin (CARDURA) 4 mg tablet Take 0.5 tablets by mouth twice daily. - latanoprost (XALATAN) 0.005 % ophthalmic solution Use 1 Drop in both eyes daily at bedtime. into affected eye(s). 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] 09/24/2017 Hypertension, essential [I10] 10/23/2017 Lower leg edema [R60.0] 01/22/2018 12/02/2021 Chronic left hip pain [M25.552, G89.29] 03/04/2018 10/30/2022 Anemia of chronic renal failure, stage 3 (moder*03/05/2018 12/02/2021 Acute on chronic diastolic congestive heart zane*07/14/2018 Recurrent right pleural effusion [J90] 07/14/2018 12/02/2021 PVD (peripheral vascular disease) (HCC) [I73.9] 07/16/2018 Altered mental status [R41.82] 03/24/2019 07/05/2019 UTI (urinary tract infection) [N39.0] 03/24/2019 12/02/2021 Chronic combined systolic and diastolic CHF (co*03/24/2019 Hyperkalemia [E87.5] 03/24/2019 12/02/2021 Hypoxia [R09.02] 03/24/2019 12/02/2021 Hypoalbuminemia [E88.09] 03/24/2019 12/02/2021 GARRET (acute kidney injury) (HCC) [N17.9] 03/24/2019 12/02/2021 CKD (chronic kidney disease) stage 3, GFR 30-59*03/24/2019 04/18/2019 High phosphate levels [E83.39] 03/24/2019 12/02/2021 Hyponatremia [E87.1] 03/24/2019 12/02/2021 Delirium [R41.0] 03/29/2019 12/02/2021 Malnutrition of mode (more content not included)... Normal [facility] CNOVon 06-25-2024 CNOV Office Visit (ORMDNA ) -- MAURI QUINONES ([id number]) 1955 M Date Time Provider Department 06/25/24 11:30 AM NUPUR DE LA ROSA During your visit today, we recorded the following information about you: Nupur De La Rosa MD 07/22/2024 9:24 PM Signed REASON FOR VISIT / CHIEF COMPLAINT CHIEF COMPLAINT: Mauri Quinones is a 68 year old male who presents today for follow up office visit. Patient presents with: Right Ankle - Follow Up, Fracture HISTORY OF PRESENT ILLNESS (HPI) PAIN EVALUATION 06/25/2024 1125 Pain Level: 0 Pain Location: Ankle-Right He reports that his ankle is doing well. He still has occasional pain in the knee but for the most part is returning to regular activities Any new injury, since being seen last: No Is there any overall improvement in your condition? Yes, Does anything make it worse?: Yes, prolonged standing, walking Does anything make it better?: Yes, activity modification REVIEW OF SYMPTOMS: Integumentary: Any recent skin changes or rashes? No Neurologic: Any numbness or tingling in the LOCAL AREA? No Endocrine: Any diagnosis of diabetes? No Hematologic: Any recent bleeding episodes? No ALLERGIES ALLERGIES Allergen Reactions Lyrica [Pregabalin] Swelling PAST MEDICAL HISTORY PAST MEDICAL HISTORY Diagnosis Date Acute on chronic diastolic congestive heart failure ([facility]) 07/14/2018 GARRET (acute kidney injury) ([facility]) 03/24/2019 GARRET (acute kidney injury) ([facility]) 03/24/2019 Ankylosing spondylitis ([facility]) CAD (coronary artery disease) Cellulitis Chronic combined systolic and diastolic CHF (congestive heart failure) ([facility]) 03/24/2019 CKD (chronic kidney disease) stage 3, GFR 30-59 ml/min ([facility]) 03/24/2019 Constipation Diabetes ([facility]) Gout High phosphate levels 03/24/2019 History of coronary artery bypass graft 04/18/2019 04/10/17 CARTY to LAD, SVG to PDA, SVG to OM Hx of fracture multiple bones Hyperkalemia 03/24/2019 Hypoalbuminemia 03/24/2019 Hyponatremia 03/24/2019 Hypoxia 03/24/2019 Ischemic cardiomyopathy 04/18/2019 Echocardiogram 01/10/19 Dr. Nunez: Dilated left ventricle, left ventricular ejection fraction 40%, mild to moderate systolic dysfunction, moderate concentric LVH, dilated left and right atria. Mild mitral valve thickening with papillary muscle dysfunction, mild mitral valve insufficiency, tricuspid valve insufficiency, aortic valve insufficiency, pulmonic valve insufficiency. Aortic valve calcifi NSTEMI (non-ST elevated myocardial infarction) ([facility]) 03/12/2017 [facility] admit Osteoarthritis Transition of care performed with sharing of clinical summary 04/08/2019 Admit [facility] 03/21/19-03/22/19 Discharge diagnoses chronic kidney disease with worsening creatinine, acute kidney injury Hypokalemia Toxic encephalopathy secondary to Flexeril overusage Type 2 diabetes Ischemic cardiomyopathy Coronary artery disease Ligamental cervical neck strain and acute Pulmonary hypertension Hypertension Pyuria Preadmit: to [facility] ED with slurred speech, lethargy. PAST SURGICAL HISTORY Procedure Laterality Date ARTHRP ACETBLR/PROX FEM PROSTC AGRFT/ALGRFT Right 2019 Dr Peguero CORONARY ARTERY BYPASS GRAFT 04/12/2017 x 3 FEMUR RIGHT OP SURGERY Right Repair of fracture with hardward HIP SURGERY HX Right pin KNEE ARTHROSCOPY Left x2 KNEE SURGERY HX Right TKR, right, arthoscopy x3 PAST SURGICAL HISTORY OF 09/07/2017 08/15/17 fx radius in 2 places; plate and screws.Plate and screws 09/07/17 [facility] TOE SURGERY HX Right PHYSICAL EXAMINATION Vitals: There were no vitals taken for this visit. Body Habitus:no acute distress and alert and oriented Orientation: Normal: Oriented to person, place and time Psych: normal Sensation: sensation to light touch is grossly normal bilaterally Skin: Color, texture, turgor normal. No rashes or lesions Swelling: no swelling noted Stance: normal cervical posture, shoulder alignment, and no joint deformities or swelling noted Ortho Exam Right knee no palpable effusions Range of motion 0-110 No tenderness over the proximal tibia Right leg neurovascularly intact Right ankle full range of motion No tenderness to palpation Imaging : XR ANKLE GENERAL 3V AP/LAT/OBL RIGHT Narrative: * * *Final Report* * * DATE OF EXAM: Jun 25 2024 11:26AM LIUDMILA [id number] - XR ANKLE 3V AP/LAT/OBL RT / PROCEDURE REASON: [id number] * * * * Physician Interpretation * * * * EXAM(s): XR ANKLE 3V AP/LAT/OBL RT..... HISTORY: 68 years old Clinical information: Pain right ankle pain TECHNIQUE: Images: XR ANKLE 3V AP/LAT/OBL RT Comparison: 05/07/2024. RESULT: Findings: Diffuse bony demineralization. Flattened sclerotic appearance of the navicular again noted very similar to the previous study. Extensive vascular calcification throughout the soft tissues. Large anterior h (more content not included)... Normal [facility] XR ANKLE 3V AP/LAT/OBL RTon 06-25-2024 XR ANKLE 3V AP/LAT/OBL RT * * *Final Report* * * DATE OF EXAM: Jun 25 2024 11:26AM LIUDMILA 5297 - XR ANKLE 3V AP/LAT/OBL RT / PROCEDURE REASON: [id number] * * * * Physician Interpretation * * * * EXAM(s): XR ANKLE 3V AP/LAT/OBL RT..... HISTORY: 68 years old Clinical information: Pain right ankle pain TECHNIQUE: Images: XR ANKLE 3V AP/LAT/OBL RT Comparison: 05/07/2024. RESULT: Findings: Diffuse bony demineralization. Flattened sclerotic appearance of the navicular again noted very similar to the previous study. Extensive vascular calcification throughout the soft tissues. Large anterior heel spur No fractures or dislocations are seen. IMPRESSION: Navicular stress fracture again noted similar in appearance to the previous study [facility] Transcribe Date/Time: Jun 26 2024 10:30A Dictated by : OSMAN JORDAN DO This examination was interpreted and the report reviewed and electronically signed by: OSMAN JORDAN DO on Jun 26 2024 10:31AM EST [id number] [place] [facility] CNOVon 05-19-2024 CNOV Office Visit (ORMDNA ) -- MAURI QUINONES ([id number]) 1955 M Date Time Provider Department 05/19/24 2:00 PM NUPUR DE LA ROSA During your visit today, we recorded the following information about you: Nupur De La Rosa MD 05/19/2024 8:07 PM Signed REASON FOR VISIT / CHIEF COMPLAINT CHIEF COMPLAINT: Mauri Quinones is a 68 year old male who presents today for follow up office visit. Patient presents with: Right Knee - Follow Up, Fracture Right Ankle - Follow Up HISTORY OF PRESENT ILLNESS (HPI) PAIN EVALUATION 05/19/2024 1405 Pain Level: 0 Pain Location: Knee-Right Here for follow-up of his right ankle pain for which he was seen 2 weeks ago. He was placed in a cam walker but states that this has improved his discomfort. He states that he is not having any pain in the knee Any new injury, since being seen last: No Is there any overall improvement in your condition? Yes, Does anything make it worse?: Yes, Prolonged standing, walking on uneven surfaces Does anything make it better?: Yes, activity modification and CAM Walker REVIEW OF SYMPTOMS: Integumentary: Any recent skin changes or rashes? No Neurologic: Any numbness or tingling in the LOCAL AREA? No Endocrine: Any diagnosis of diabetes? Yes Hematologic: Any recent bleeding episodes? no ALLERGIES ALLERGIES Allergen Reactions Lyrica [Pregabalin] Swelling PAST MEDICAL HISTORY PAST MEDICAL HISTORY Diagnosis Date Acute on chronic diastolic congestive heart failure ([facility]) 07/14/2018 GARRET (acute kidney injury) ([facility]) 03/24/2019 GARRET (acute kidney injury) ([facility]) 03/24/2019 Ankylosing spondylitis ([facility]) CAD (coronary artery disease) Cellulitis Chronic combined systolic and diastolic CHF (congestive heart failure) ([facility]) 03/24/2019 CKD (chronic kidney disease) stage 3, GFR 30-59 ml/min ([facility]) 03/24/2019 Constipation Diabetes ([facility]) Gout High phosphate levels 03/24/2019 History of coronary artery bypass graft 04/18/2019 04/10/17 CARTY to LAD, SVG to PDA, SVG to OM Hx of fracture multiple bones Hyperkalemia 03/24/2019 Hypoalbuminemia 03/24/2019 Hyponatremia 03/24/2019 Hypoxia 03/24/2019 Ischemic cardiomyopathy 04/18/2019 Echocardiogram 01/10/19 Dr. Nunez: Dilated left ventricle, left ventricular ejection fraction 40%, mild to moderate systolic dysfunction, moderate concentric LVH, dilated left and right atria. Mild mitral valve thickening with papillary muscle dysfunction, mild mitral valve insufficiency, tricuspid valve insufficiency, aortic valve insufficiency, pulmonic valve insufficiency. Aortic valve calcifi NSTEMI (non-ST elevated myocardial infarction) (HCC) 03/12/2017 [facility] admit Osteoarthritis Transition of care performed with sharing of clinical summary 04/08/2019 Admit [facility] 03/21/19-03/22/19 Discharge diagnoses chronic kidney disease with worsening creatinine, acute kidney injury Hypokalemia Toxic encephalopathy secondary to Flexeril overusage Type 2 diabetes Ischemic cardiomyopathy Coronary artery disease Ligamental cervical neck strain and acute Pulmonary hypertension Hypertension Pyuria Preadmit: to [facility] ED with slurred speech, lethargy. PAST SURGICAL HISTORY Procedure Laterality Date ARTHRP ACETBLR/PROX FEM PROSTC AGRFT/ALGRFT Right 2018 Dr Peguero CORONARY ARTERY BYPASS GRAFT 04/12/2017 x 3 FEMUR RIGHT OP SURGERY Right Repair of fracture with hardward HIP SURGERY HX Right pin KNEE ARTHROSCOPY Left x2 KNEE SURGERY HX Right TKR, right, arthoscopy x3 PAST SURGICAL HISTORY OF 09/07/2017 08/15/17 fx radius in 2 places; plate and screws.Plate and screws 09/07/17 [facility] TOE SURGERY HX Right PHYSICAL EXAMINATION Vitals: There were no vitals taken for this visit. Body Habitus:no acute distress and alert and oriented Orientation: Normal: Oriented to person, place and time Psych: normal Sensation: sensation to light touch is grossly normal bilaterally Skin: Color, texture, turgor normal. No rashes or lesions Swelling: no swelling noted Stance: normal cervical posture, shoulder alignment, and no joint deformities or swelling noted Ortho Exam Right ankle with decreased swelling Mild tenderness to palpation over the anterior ankle joint No tenderness palpation over the distal tibia or lateral malleolus Imaging : None today Proceedures : None today Assessment: Improving right ankle pain. Differential diagnosis includes stress fracture distal tibia versus osteoarthritis Plan: 1. Continue weight-bear as tolerated in the fracture orthosis particularly when out of doors or when walking on uneven surfaces 2. Follow-up for repeat clinical /radiographic evaluation Nupur De La Rosa M.D. Department of Orthopaedic Surgery [facility] Allergies As of Date: 05/19/2024 Noted Allergy Reaction LYRICA (PREGABALIN) 03/23/2017 7 - Swelling Date Review (more content not included)... Normal [facility] XR Ankle - right AP and Late ral and obliqueon 05-10-2024 IMPRESSION: Navicula r stress fracture. Crts: PSCB Transcribe Date/Time: May 10 2024 3:02P Dictated by : SONG DE LA GARZA MD This examination was interpreted and the report reviewed and electronically signed by: SONG DE LA GARZA MD on May 10 2024 3:17PM [facility] * * *Final Report* * * DATE OF EXAM: May 07 2024 1:33PM MDO 5297 - XR ANKLE 3V AP/LAT/OBL RT / PROCEDURE REASON: M25.571-Acute right ankle pain * * * * Physician Interpretation * * * * PROCEDURE: Right ankle INDICATION: Acute right ankle pain . TECHNIQUE: XR ANKLE 3V AP/LAT/OBL RT COMPARISON: 02/13/2024 FINDINGS: Diffuse bone demineralization. Flattening and sclerosis of the navicula likely due to stress fracture, not present previously. Ankle mortise is symmetric. Plantar calcaneal spur. Diffuse soft tissue swelling and advanced vascular calcifications again noted. [facility] Provider, Phyllis Camp - 05/10/2024 * * *Final Report* * * DATE OF EXAM: May 07 2024 1:33PM MDO 5297 - XR ANKLE 3V AP/LAT/OBL RT / PROCEDURE REASON: M25.571-Acute right ankle pain * * * * Physician Interpretation * * * * PROCEDURE: Right ankle INDICATION: Acute right ankle pain . TECHNIQUE: XR ANKLE 3V AP/LAT/OBL RT COMPARISON: 02/13/2024 FINDINGS: Diffuse bone demineralization. Flattening and sclerosis of the navicula likely due to stress fracture, not present previously. Ankle mortise is symmetric. Plantar calcaneal spur. Diffuse soft tissue swelling and advanced vascular calcifications again noted. IMPRESSION IMPRESSION: Navicular stress fracture. Crts: PSCB Transcribe Date/Time: May 10 2024 3:02P Dictated by : SONG DE LA GARZA MD This examination was interpreted and the report reviewed and electronically signed by: SONG DE LA GARZA MD on May 10 2024 3:17PM EST [facility] XR Ankle - right AP and Late ral and obliqueOrdered By: Ccf Provider on 05-10-2024 [facility] CNOVon 05-07-2024 CNOV Office Visit (ORMDNA ) -- MAURI QUINONES ([id number]) 1955 M Date Time Provider Department 05/07/24 1:00 PM NUPUR DE LA ROSA ORFABIOLA During your visit today, we recorded the following information about you: Nupur De La Rosa MD 06/04/2024 9:44 PM Signed FRACTURE FOLLOW-UP Mr. Quinones presents today for his follow-up visit from: Follow Up and Fracture of the Right Knee He is 11weeks post-injury and was last seen one month ago. He has been advancing his weightbearing. He reports that his knee is doing well that he has developed a recurrence of his ankle pain history: PAIN EVALUATION 05/07/2024 1302 Pain Level: 5 Pain Location: Ankle-Right Description: Aching Duration Amount of Time: -- ongoing Frequency: Intermittent Intervention/Comfort measure: Relaxation;Cold The patient denies swelling, warmth, discharge, drainage, fevers, chills, sweats. He reports compliance with therapy, sling/splint/ambulatory device/dressing/wound care, and the use of medications. Review of Systems Constitutional: Negative for fever. Respiratory: Negative for cough and shortness of breath. Cardiovascular: Negative for chest pain. He reports no change in past medical AND surgical history, medications, allergies, social history, family history and review of systems since last visit, with the exception of the following: None Radiographs: XR ANKLE GENERAL 3V AP/LAT/OBL RIGHT Narrative: * * *Final Report* * * DATE OF EXAM: May 07 2024 1:33PM LIUDMILA 5297 - XR ANKLE 3V AP/LAT/OBL RT / PROCEDURE REASON: M25.571-Acute right ankle pain * * * * Physician Interpretation * * * * PROCEDURE: Right ankle INDICATION: Acute right ankle pain . TECHNIQUE: XR ANKLE 3V AP/LAT/OBL RT COMPARISON: 02/13/2024 FINDINGS: Diffuse bone demineralization. Flattening and sclerosis of the navicula likely due to stress fracture, not present previously. Ankle mortise is symmetric. Plantar calcaneal spur. Diffuse soft tissue swelling and advanced vascular calcifications again noted. Impression: IMPRESSION: Navicular stress fracture. Crts: CARMELA Transcribe Date/Time: May 10 2024 3:02P Dictated by : SONG DE LA GARZA MD This examination was interpreted and the report reviewed and electronically signed by: SONG DE LA GARZA MD on May 10 2024 3:17PM EST Physical Examination: Mild tenderness over the anterior ankle joint and over the medial midfoot No effusions to the ankle Instability testing is negative positive EHL, FHL, AT, GS, Quads, and HS Positive distal pulses Negative Otis's, calf tenderness or palpable cords PROCEDURE: Not applicable Assessment: Right ankle pain related to some changes in the midfoot particularly at the navicular which were read by radiology as a stress fracture although this could be an AVN of the navicular. I have recommended treatment in a fracture orthosis and protected weightbearing will reevaluate. Plan: 1. Increase activity as noted above 2. Continue range of motion exercises 3. Follow-up for repeat clinical evaluation Nupur De La Rosa MD Allergies As of Date: 05/07/2024 Noted Allergy Reaction LYRICA (PREGABALIN) 03/23/2017 7 - Swelling Date Reviewed: 05/07/2024 Reviewed by: Jeanne Akbar OCCA - Fully Assessed Reason for Visit: Follow Up [171] Primary Visit Diagnosis:Acute right ankle pain [M25.571] Other Visit Diagnoses:Arthritis of right midfoot [M19.071] Stress fracture of navicular bone of right foot [M84.374A] Order(s):XR ANKLE GENERAL 3V AP/LAT/OBL RIGHT [[id number]] Order #: [id number] FUTURE Prescriptions as of 06/04/2024 - loratadine (CLARITIN) 10 mg tablet Take 1 tablet by mouth once daily. - traMADol (ULTRAM) 50 mg tablet Take 50 mg by mouth every 6 hours as needed for pain. - aspirin, enteric coated (ASPIRIN, ENTERIC COATED) 81 mg EC tablet Take 81 mg by mouth once daily. Pt to call and clarify if needs to stop - pantoprazole DR (PROTONIX) 40 mg tablet Take 1 tablet by mouth twice daily before meals (0600/1600). - sevelamer carbonate (RENVELA) 800 mg tablet Take 800 mg by mouth three times daily with meals. - B Complex-Vitamin C-Folic Acid (NEPHRO-SAVANAH) 0.8 mg tab Take 1 tablet by mouth every morning. - bumetanide (BUMEX) 2 mg tablet Take 2 mg by mouth every morning. - melatonin 5 mg tablet Take 10 mg by mouth at bedtime as needed for for insomnia. - insulin detemir U-100 (LEVEMIR FLEXTOUCH U-100 INSULN) 100 unit/mL (3 mL) injection pen Inject 15 Units subcutaneously daily at bedtime. - acetaminophen (TYLENOL EX STR RAPID RELEASE ORAL) Take 1-2 capsules by mouth every 6 hours as needed (pain). - atorvastatin (LIPITOR) 40 mg tablet Take 40 mg by mouth daily at bedtime. - doxazosin (CARDURA) 4 mg tablet Take 0.5 tablets by mouth twice daily. - carvedilol (COREG) 25 mg tablet Take 12.5 mg by mouth (more content not included)... Normal [facility] XR ANKLE 3V AP/LAT/OBL RTon 05-07-2024 XR ANKLE 3V AP/LAT/OBL RT * * *Final Report* * * DATE OF EXAM: May 07 2024 1:33PM LIUDMILA 5297 - XR ANKLE 3V AP/LAT/OBL RT / PROCEDURE REASON: M25.571-Acute right ankle pain * * * * Physician Interpretation * * * * PROCEDURE: Right ankle INDICATION: Acute right ankle pain . TECHNIQUE: XR ANKLE 3V AP/LAT/OBL RT COMPARISON: 02/13/2024 FINDINGS: Diffuse bone demineralization. Flattening and sclerosis of the navicula likely due to stress fracture, not present previously. Ankle mortise is symmetric. Plantar calcaneal spur. Diffuse soft tissue swelling and advanced vascular calcifications again noted. IMPRESSION: Navicular stress fracture. Crts: CARMELA Transcribe Date/Time: May 10 2024 3:02P Dictated by : SONG DE LA GARZA MD This examination was interpreted and the report reviewed and electronically signed by: SONG DE LA GARZA MD on May 10 2024 3:17PM EST [id number] [facility] XR Ankle - right AP and Late ral and obliqueon 05-07-2024 Radiology Study observation (narrative) [facility] Aniket 04-15-2024 CNPN Telephone (ORMDNA) -- MAURI QUINONES ([id number]) 1955 M Date Time Provider Department 04/15/24 NUPUR DE LA ROSA During your visit today, we recorded the following information about you: Isabela Rosado RN 04/15/2024 1:44 PM Signed Spoke with pt C/o ankle pain again He was doing well when he was non weight bearing until recently when he was given the ok to advance his WBS to 100% with his walker-it has been almost 2 weeks The ankle is swelling again and it is red and warm to touch He did go to TTWB today He has been icing with no relief Has not been elevating so advised to do so Since he has not been on it it much today, the pain has decreases slightly Advised it could be due to being back on it at 100% WB after being non weight bearing for almost 9 weeks Advised to decrease WBS and advance slowly to see if that would help Please advise any other recommendations Isabela Rosado RN 04/15/2024 3:35 PM Signed I agree with backing off his weightbearing status to toe-touch weightbearing. This is a little confusing to me as his fracture was in the proximal tibia not the ankle. If he is still painful and swollen tomorrow please have him call the office and we will arrange for him to come in to be seen by me and get some new x-rays at that time. Tonight and have him ice and elevate the leg toe-touch weightbearing as noted above Thanks PS Spoke with patient and relayed message. Patient verbalized understanding. Isabela Rosado RN 04/16/2024 9:22 AM Signed Left message for patient to return call. Isabela Rosado RN 04/16/2024 9:40 AM Signed Spoke with Patient Doing ok today He iced and elevated all day yesterday and will continue to TTWB He will call back on Sunday morning with an update, if not needing anything sooner Allergies As of Date: 04/15/2024 Noted Allergy Reaction LYRICA (PREGABALIN) 03/23/2017 7 - Swelling Date Reviewed: 04/02/2024 Reviewed by: Jeanne Akbar OCCA - Fully Assessed Reason for Visit: Patient Update [1234] Prescriptions as of 04/16/2024 - loratadine (CLARITIN) 10 mg tablet Take 1 tablet by mouth once daily. - traMADol (ULTRAM) 50 mg tablet Take 50 mg by mouth every 6 hours as needed for pain. - aspirin, enteric coated (ASPIRIN, ENTERIC COATED) 81 mg EC tablet Take 81 mg by mouth once daily. Pt to call and clarify if needs to stop - pantoprazole DR (PROTONIX) 40 mg tablet Take 1 tablet by mouth twice daily before meals (0600/1600). - sevelamer carbonate (RENVELA) 800 mg tablet Take 800 mg by mouth three times daily with meals. - B Complex-Vitamin C-Folic Acid (NEPHRO-SAVANAH) 0.8 mg tab Take 1 tablet by mouth every morning. - bumetanide (BUMEX) 2 mg tablet Take 2 mg by mouth every morning. - melatonin 5 mg tablet Take 10 mg by mouth at bedtime as needed for for insomnia. - insulin detemir U-100 (LEVEMIR FLEXTOUCH U-100 INSULN) 100 unit/mL (3 mL) injection pen Inject 15 Units subcutaneously daily at bedtime. - acetaminophen (TYLENOL EX STR RAPID RELEASE ORAL) Take 1-2 capsules by mouth every 6 hours as needed (pain). - atorvastatin (LIPITOR) 40 mg tablet Take 40 mg by mouth daily at bedtime. - doxazosin (CARDURA) 4 mg tablet Take 0.5 tablets by mouth twice daily. - carvedilol (COREG) 25 mg tablet Take 12.5 mg by mouth twice daily with meals. - latanoprost (XALATAN) 0.005 % ophthalmic solution Use 1 Drop in both eyes daily at bedtime. into affected eye(s). 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] 09/24/2017 Hypertension, essential [I10] 10/23/2017 Lower leg edema [R60.0] 01/22/2018 12/02/2021 Chronic left hip pain [M25.552, G89.29] 03/04/2018 10/30/2022 Anemia of chronic renal failure, stage 3 (moder*03/05/2018 12/02/2021 Acute on chronic diastolic congestive heart zane*07/14/2018 Recurrent right pleural effusion [J90] 07/14/2018 12/02/2021 PVD (peripheral vascular disease) (HCC) [I73.9] 07/16/2018 Altered mental status [R41.82] 03/24/2019 07/05/2019 UTI (urinary tract infection) [N39.0] 03/24/2019 12/02/2021 Chronic combined systolic and diastolic CHF (co*03/24/2019 Hyperkalemia [E87.5] 03/24/2019 12/02/2021 Hypoxia [R09.02] 03/24/2019 12/02/2021 Hypoalbuminemia [E88.09] 03/24/2019 12/02/2021 GARRET (acute kidney injury) (HCC) [N17.9] 03/24/2019 12/02/2021 CKD (chronic kidney disease) stage 3, GFR 30-59*03/24/2019 04/18/2019 High phosphate levels [E83.39] 03/24 (more content not included)... Normal [facility] XR Knee - right AP and Later al and obliqueon 04-05-2024 IMPRESSION: No acute abnormality Crts: CARMELA Transcribe Date/Time: Apr 05 2024 4:22P Dictated by : SONG DE LA GARZA MD This examination was interpreted and the report reviewed and electronically signed by: SONG DE LA GARZA MD on Apr 05 2024 4:24PM [facility] * * *Final Report* * * DATE OF EXAM: Apr 02 2024 1:37PM LIUDM[facility]A 5205 - XR KNEE 4V AP/LAT/OBLS RT / PROCEDURE REASON: M25.561-Right knee pain, unspecified chronicity * * * * Physician Interpretation * * * * PROCEDURE: Right knee INDICATION: Right knee pain, unspecified chronicity .Follow-up for right knee TECHNIQUE: XR KNEE 4V AP/LAT/OBLS RT COMPARISON: 03/03/2024 FINDINGS: The total knee arthroplasty remains in satisfactory position without evidence for loosening. No periprosthetic fracture or significant joint effusion. Remote, healed distal femoral fracture with intramedullary minesh again noted. Advanced vascular calcifications are noted. [facility] Provider, Phyllis Camp - 04/05/2024 * * *Final Report* * * DATE OF EXAM: Apr 02 2024 1:37PM LIUDMILA 5205 - XR KNEE 4V AP/LAT/OBLS RT / PROCEDURE REASON: M25.561-Right knee pain, unspecified chronicity * * * * Physician Interpretation * * * * PROCEDURE: Right knee INDICATION: Right knee pain, unspecified chronicity .Follow-up for right knee TECHNIQUE: XR KNEE 4V AP/LAT/OBLS RT COMPARISON: 03/03/2024 FINDINGS: The total knee arthroplasty remains in satisfactory position without evidence for loosening. No periprosthetic fracture or significant joint effusion. Remote, healed distal femoral fracture with intramedullary minesh again noted. Advanced vascular calcifications are noted. IMPRESSION IMPRESSION: No acute abnormality Crts: PSCB Transcribe Date/Time: Apr 05 2024 4:22P Dictated by : SONG DE LA GARZA MD This examination was interpreted and the report reviewed and electronically signed by: SONG DE LA GARZA MD on Apr 05 2024 4:24PM EST [facility] XR Knee - right AP and Later al and obliqueOrdered By: Ccf Provider on 04-05-2024 [facility] CNOVon 04-02-2024 CNOV Office Visit (ORMDNA ) -- MAURI QUINONES ([id number]) 1955 M Date Time Provider Department 04/02/24 1:45 PM NUPUR DE LA ROSA ORMDNA During your visit today, we recorded the following information about you: Nupur De La Rosa MD 04/22/2024 12:33 PM Signed FRACTURE FOLLOW-UP Mr. Quinones presents today for his follow-up visit from: Follow Up and Fracture of the Right Knee He is seven weeks post-injury and was last seen one month ago. He has been compliant with the hinged knee brace and protected weightbearing History: PAIN EVALUATION 04/02/2024 1341 Pain Level: 0 Pain Location: Knee-Right The patient denies swelling, warmth, discharge, drainage, fevers, chills, sweats. He reports compliance with therapy, sling/splint/ambulatory device/dressing/wound care, and the use of medications. Review of Systems He reports no change in past medical AND surgical history, medications, allergies, social history, family history and review of systems since last visit, with the exception of the following: None Radiographs: XR KNEE INJURY 4V AP/LAT/OBLS RIGHT Narrative: * * *Final Report* * * DATE OF EXAM: Apr 02 2024 1:37PM LIUDMILA 5205 - XR KNEE 4V AP/LAT/OBLS RT / PROCEDURE REASON: M25.561-Right knee pain, unspecified chronicity * * * * Physician Interpretation * * * * PROCEDURE: Right knee INDICATION: Right knee pain, unspecified chronicity .Follow-up for right knee TECHNIQUE: XR KNEE 4V AP/LAT/OBLS RT COMPARISON: 03/03/2024 FINDINGS: The total knee arthroplasty remains in satisfactory position without evidence for loosening. No periprosthetic fracture or significant joint effusion. Remote, healed distal femoral fracture with intramedullary minesh again noted. Advanced vascular calcifications are noted. Impression: IMPRESSION: No acute abnormality Crts: [facility] Transcribe Date/Time: Apr 05 2024 4:22P Dictated by : SONG DE LA GARZA MD This examination was interpreted and the report reviewed and electronically signed by: SONG DE LA GARZA MD on Apr 05 2024 4:24PM EST Physical Examination: No tenderness about the medial joint line, lateral joint line, medial femoral condyle, lateral femoral condyle Effusion: none 0 - 100 motion Positive EHL, FHL, AT, GS, Quads, and HS Positive distal pulses Negative Otis's, calf tenderness or palpable cords PROCEDURE: Not applicable Assessment: Healing proximal tibial periprosthetic fracture that was identified on CT scan taken in outlying facility. At this point I feel that he has improved enough clinically that we can advance him to weightbearing as tolerated. I have recommended that he wean out of the I ROM brace but I do recommend using it for times when he is walking on uneven surfaces or unpredictable surfaces. Plan: 1. Increase activity as noted above 2. Continue range of motion exercises 3. Follow-up for repeat clinical evaluation Nupur De La Rosa MD Referring Provider: NUPUR DE LA ROSA [[id number]] Allergies As of Date: 04/02/2024 Noted Allergy Reaction LYRICA (PREGABALIN) 03/23/2017 7 - Swelling Date Reviewed: 04/02/2024 Reviewed by: Jeanne Akbar OCCA - Fully Assessed Reason for Visit: Follow Up [171] Fracture [4131] Primary Visit Diagnosis:Other closed fracture of proximal end of right tibia, initial encounter [S82.191A] Prescriptions as of 04/22/2024 - loratadine (CLARITIN) 10 mg tablet Take 1 tablet by mouth once daily. - traMADol (ULTRAM) 50 mg tablet Take 50 mg by mouth every 6 hours as needed for pain. - aspirin, enteric coated (ASPIRIN, ENTERIC COATED) 81 mg EC tablet Take 81 mg by mouth once daily. Pt to call and clarify if needs to stop - pantoprazole DR (PROTONIX) 40 mg tablet Take 1 tablet by mouth twice daily before meals (0600/1600). - sevelamer carbonate (RENVELA) 800 mg tablet Take 800 mg by mouth three times daily with meals. - B Complex-Vitamin C-Folic Acid (NEPHRO-SAVANAH) 0.8 mg tab Take 1 tablet by mouth every morning. - bumetanide (BUMEX) 2 mg tablet Take 2 mg by mouth every morning. - melatonin 5 mg tablet Take 10 mg by mouth at bedtime as needed for for insomnia. - insulin detemir U-100 (LEVEMIR FLEXTOUCH U-100 INSULN) 100 unit/mL (3 mL) injection pen Inject 15 Units subcutaneously daily at bedtime. - acetaminophen (TYLENOL EX STR RAPID RELEASE ORAL) Take 1-2 capsules by mouth every 6 hours as needed (pain). - atorvastatin (LIPITOR) 40 mg tablet Take 40 mg by mouth daily at bedtime. - doxazosin (CARDURA) 4 mg tablet Take 0.5 tablets by mouth twice daily. - carvedilol (COREG) 25 mg tablet Take 12.5 mg by mouth twice daily with meals. - latanoprost (XALATAN) 0.005 % ophthalmic solution Use 1 Drop in both eyes daily at bedtime. into affected eye(s). Meds Comments as of 04/08/2019: 04/08/19 The medications are managed by this patient by: SPOUSE (more content not included)... Normal [facility] XR KNEE 4V AP/LAT/OBLS RTon 04-02-2024 XR KNEE 4V AP/LAT/OBLS RT * * *Final Report* * * DATE OF EXAM: Apr 02 2024 1:37PM LIUDMILA 5205 - XR KNEE 4V AP/LAT/OBLS RT / PROCEDURE REASON: M25.561-Right knee pain, unspecified chronicity * * * * Physician Interpretation * * * * PROCEDURE: Right knee INDICATION: Right knee pain, unspecified chronicity .Follow-up for right knee TECHNIQUE: XR KNEE 4V AP/LAT/OBLS RT COMPARISON: 03/03/2024 FINDINGS: The total knee arthroplasty remains in satisfactory position without evidence for loosening. No periprosthetic fracture or significant joint effusion. Remote, healed distal femoral fracture with intramedullary minesh again noted. Advanced vascular calcifications are noted. IMPRESSION: No acute abnormality Crts: PSCB Transcribe Date/Time: Apr 05 2024 4:22P Dictated by : SONG DE LA GARZA MD This examination was interpreted and the report reviewed and electronically signed by: SONG DE LA GARZA MD on Apr 05 2024 4:24PM EST [id number] [facility] XR Knee - right AP and Later al and obliqueon 04-02-2024 Radiology Study observation (narrative) [facility] CNOVon 03-27-2024 CNOV Office Visit (FAMPWS ) -- MAURI QUINONES ([id number]) 1955 M Date Time Provider Department 03/27/24 12:40 PM ALEXUS MENDEZ FAMPWS During your visit today, we recorded the following information about you: Pulse Blood pressure 66/minute 158/82 Alexus Mendez, SQL TECH.GUN FERTILIZER 03/27/2024 1:02 PM Signed This is a 68 year old male who presents today with: Patient presents with: Mass: Pain and lump near belly button for one week. HISTORY OF PRESENT ILLNESS: Mauri Delcid Stacie is a 68 year old male. Patient presents with: Mass: Pain and lump near belly button for one week. Umbilicus swollen for the past week. Swelling better. A little bit of discomfort relieved with acetaminophen. Occurred spontaneously. Follows with Florencia Brian- in cardiology- no chest pain, no SOB, no edema Blood sugar fasting 130-140, doesn't check regularly; makes urine CKD- on hemodialysis No recent gout flares PAST MEDICAL HISTORY: PAST MEDICAL HISTORY 07/14/2018: Acute on chronic diastolic congestive heart failure ([facility]) 03/24/2019: GARRET (acute kidney injury) ([facility]) 03/24/2019: GARRET (acute kidney injury) ([facility]) No date: Ankylosing spondylitis ([facility]) No date: CAD (coronary artery disease) No date: Cellulitis 03/24/2019: Chronic combined systolic and diastolic CHF (congestive heart failure) ([facility]) 03/24/2019: CKD (chronic kidney disease) stage 3, GFR 30-59 ml/min ([facility]) No date: Constipation No date: Diabetes ([facility]) No date: Gout 03/24/2019: High phosphate levels 04/18/2019: History of coronary artery bypass graft Comment: 04/10/17 CARTY to LAD, SVG to PDA, SVG to OM No date: Hx of fracture Comment: multiple bones 03/24/2019: Hyperkalemia 03/24/2019: Hypoalbuminemia 03/24/2019: Hyponatremia 03/24/2019: Hypoxia 04/18/2019: Ischemic cardiomyopathy Comment: Echocardiogram 01/10/19 Dr. Nunez: Dilated left ventricle, left ventricular ejection fraction 40%, mild to moderate systolic dysfunction, moderate concentric LVH, dilated left and right atria. Mild mitral valve thickening with papillary muscle dysfunction, mild mitral valve insufficiency, tricuspid valve insufficiency, aortic valve insufficiency, pulmonic valve insufficiency. Aortic valve calcifi 03/12/2017: NSTEMI (non-ST elevated myocardial infarction) ([facility]) Comment: [facility] admit No date: Osteoarthritis 04/08/2019: Transition of care performed with sharing of clinical summary Comment: Admit [facility] 03/21/19-03/22/19 Discharge diagnoses chronic kidney disease with worsening creatinine, acute kidney injury Hypokalemia Toxic encephalopathy secondary to Flexeril overusage Type 2 diabetes Ischemic cardiomyopathy Coronary artery disease Ligamental cervical neck strain and acute Pulmonary hypertension Hypertension Pyuria Preadmit: to [facility] ED with slurred speech, lethargy. PAST SURGICAL HISTORY 2019: ARTHRP ACETBLR/PROX FEM PROSTC AGRFT/ALGRFT; Right Comment: Dr Peguero 04/12/2017: CORONARY ARTERY BYPASS GRAFT Comment: x 3 No date: FEMUR RIGHT OP SURGERY; Right Comment: Repair of fracture with hardward No date: HIP SURGERY HX; Right Comment: pin No date: KNEE ARTHROSCOPY; Left Comment: x2 No date: KNEE SURGERY HX; Right Comment: TKR, right, arthoscopy x3 09/07/2017: PAST SURGICAL HISTORY OF Comment: 08/15/17 fx radius in 2 places; plate and screws.Plate and screws 09/07/17 [facility] No date: TOE SURGERY HX; Right ALLERGIES Lyrica [Pregabalin] MEDICATIONS Current Outpatient Medications Medication Sig traMADol (ULTRAM) 50 mg tablet Take 50 mg by mouth every 6 hours as needed for pain. aspirin, enteric coated (ASPIRIN, ENTERIC COATED) 81 mg EC tablet Take 81 mg by mouth once daily. Pt to call and clarify if needs to stop sevelamer carbonate (RENVELA) 800 mg tablet Take 800 mg by mouth three times daily with meals. B Complex-Vitamin C-Folic Acid (NEPHRO-SAVANAH) 0.8 mg tab Take 1 tablet by mouth every morning. loratadine (CLARITIN) 10 mg tablet Take 1 tablet by mouth once daily. bumetanide (BUMEX) 2 mg tablet Take 2 mg by mouth every morning. melatonin 5 mg tablet Take 10 mg by mouth at bedtime as needed for for insomnia. acetaminophen (TYLENOL EX STR RAPID RELEASE ORAL) Take 1-2 capsules by mouth every 6 hours as needed (pain). atorvastatin (LIPITOR) 40 mg tablet Take 40 mg by mouth daily at bedtime. doxazosin (CARDURA) 4 mg tablet Take 0.5 tablets by mouth twice daily. carvedilol (COREG) 25 mg tablet Take 12.5 mg by mouth twice daily with meals. latanoprost (XALATAN) 0.005 % ophthalmic solution Use 1 Drop in both eyes daily at bedtime. into affected eye(s). pantoprazole DR (PROTONIX) 40 mg tablet Take 1 tablet by mouth twice daily before meals (0600/1600). (Patient taking differently: Take 40 mg by mouth every morning.) insulin detemir U-100 (LEVEMIR FLEXTOUCH U-100 INSULN) 100 unit/mL (3 mL) injection pe (more content not included)... Normal [facility] XR Knee - right AP and Later al and obliqueon 03-04-2024 IMPRESSION: Possible healing fibular head fracture. No acute fracture. Crts: CARMELA Transcribe Date/Time: Mar 04 2024 8:06P Dictated by : SONG DE LA GARZA MD This examination was interpreted and the report reviewed and electronically signed by: SONG DE LA GARZA MD on Mar 04 2024 8:09PM [facility] * * *Final Report* * * DATE OF EXAM: Mar 03 2024 1:20PM MDO 5205 - XR KNEE 4V AP/LAT/OBLS RT / PROCEDURE REASON: M25.561-Right knee pain, unspecified chronicity * * * * Physician Interpretation * * * * PROCEDURE: Right knee INDICATION: Right knee pain, unspecified chronicity .PAIN IN RIGHT KNEE TECHNIQUE: XR KNEE 4V AP/LAT/OBLS RT COMPARISON: 02/13/2024 FINDINGS: The total knee arthroplasty remains in satisfactory position without evidence for loosening. No definite periprosthetic fracture is seen. Questionable healed or healing fibular head fracture. Stable, remote appearing distal femoral fracture. Decreased size of joint effusion. [facility] Provider, Phyllis Camp - 03/04/2024 * * *Final Report* * * DATE OF EXAM: Mar 03 2024 1:20PM MDO 5205 - XR KNEE 4V AP/LAT/OBLS RT / PROCEDURE REASON: M25.561-Right knee pain, unspecified chronicity * * * * Physician Interpretation * * * * PROCEDURE: Right knee INDICATION: Right knee pain, unspecified chronicity .PAIN IN RIGHT KNEE TECHNIQUE: XR KNEE 4V AP/LAT/OBLS RT COMPARISON: 02/13/2024 FINDINGS: The total knee arthroplasty remains in satisfactory position without evidence for loosening. No definite periprosthetic fracture is seen. Questionable healed or healing fibular head fracture. Stable, remote appearing distal femoral fracture. Decreased size of joint effusion. IMPRESSION IMPRESSION: Possible healing fibular head fracture. No acute fracture. Crts: PSCB Transcribe Date/Time: Mar 04 2024 8:06P Dictated by : SONG DE LA GARZA MD This examination was interpreted and the report reviewed and electronically signed by: SONG DE LA GARZA MD on Mar 04 2024 8:09PM [facility] XR Knee - right AP and Later al and obliqueOrdered By: Ccf Provider on 03-04-2024 [facility] CNOVon 03-03-2024 CNOV Office Visit (ORMDNA ) -- MAURI QUINONES ([id number]) 1955 M Date Time Provider Department 03/03/24 1:00 PM NUPUR DE LA ROSA During your visit today, we recorded the following information about you: Nupur De La Rosa MD 03/03/2024 1:27 PM Signed FRACTURE FOLLOW-UP Mr. Quinones presents today for his follow-up visit from: Follow Up and Fracture of the Right Knee He is five weeks post-injury and was last seen three weeks ago. He was is having a nondisplaced proximal tibial periprosthetic [place] Presented here for definitive care. Review of his x-rays again showed nondisplaced tibial plateau fracture adjacent to a previous total knee arthroplasty. He has been in the fracture orthosis since his last visit has been maintaining a nonweightbearing status and states that the knee is feeling comfortable History: PAIN EVALUATION 02/25/2024 1020 03/03/2024 1304 Pain Level: 5 0 Pain Location: Leg-Right Knee-Right Duration Units: Hours -- Frequency: Intermittent Intermittent Intervention/Comfort measure: Medication Medication The patient denies swelling, warmth, discharge, drainage, fevers, chills, sweats. He reports compliance with therapy, sling/splint/ambulatory device/dressing/wound care, and the use of medications. Review of Systems He reports no change in past medical AND surgical history, medications, allergies, social history, family history and review of systems since last visit, with the exception of the following: None Radiographs: X-rays of the right knee today show that the total knee arthroplasty components as well as his femoral intramedullary minesh remained intact and well aligned. I am not seeing any obvious signs of fracture at the tibia. His initial break was diagnosed on the CT scan Physical Examination: Minimal tenderness about the proximal tibia Effusion: none 0 - 95 motion Positive EHL, FHL, AT, GS, Quads, and HS Positive distal pulses Negative Otis's, calf tenderness or palpable cords PROCEDURE: Not applicable Assessment: Stable tibial periprosthetic fracture. Plan: 1. I have unhooked the hinges on his I ROM brace to allow him full range of motion 2. Continue toe-touch weightbearing only 3. Follow-up 4 weeks for repeat clinical/radiographic evaluation and possible activity advancement Nupur De La Rosa MD Allergies As of Date: 03/03/2024 Noted Allergy Reaction LYRICA (PREGABALIN) 03/23/2017 7 - Swelling Date Reviewed: 03/03/2024 Reviewed by: Jeanne Akbar OCCA - Fully Assessed Reason for Visit: Follow Up [171] Fracture [4131] Primary Visit Diagnosis:Other closed fracture of proximal end of right tibia, initial encounter [S82.191A] Prescriptions as of 03/03/2024 - traMADol (ULTRAM) 50 mg tablet Take 50 mg by mouth every 6 hours as needed for pain. - aspirin, enteric coated (ASPIRIN, ENTERIC COATED) 81 mg EC tablet Take 81 mg by mouth once daily. Pt to call and clarify if needs to stop - pantoprazole DR (PROTONIX) 40 mg tablet Take 1 tablet by mouth twice daily before meals (0600/1600). - sevelamer carbonate (RENVELA) 800 mg tablet Take 800 mg by mouth three times daily with meals. - B Complex-Vitamin C-Folic Acid (NEPHRO-SAVANAH) 0.8 mg tab Take 1 tablet by mouth every morning. - loratadine (CLARITIN) 10 mg tablet Take 1 tablet by mouth once daily. - bumetanide (BUMEX) 2 mg tablet Take 2 mg by mouth every morning. - melatonin 5 mg tablet Take 10 mg by mouth at bedtime as needed for for insomnia. - insulin detemir U-100 (LEVEMIR FLEXTOUCH U-100 INSULN) 100 unit/mL (3 mL) injection pen Inject 15 Units subcutaneously daily at bedtime. - acetaminophen (TYLENOL EX STR RAPID RELEASE ORAL) Take 1-2 capsules by mouth every 6 hours as needed (pain). - atorvastatin (LIPITOR) 40 mg tablet Take 40 mg by mouth daily at bedtime. - doxazosin (CARDURA) 4 mg tablet Take 0.5 tablets by mouth twice daily. - carvedilol (COREG) 25 mg tablet Take 12.5 mg by mouth twice daily with meals. - latanoprost (XALATAN) 0.005 % ophthalmic solution Use 1 Drop in both eyes daily at bedtime. into affected eye(s). 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 Normal [facility] XR KNEE 4V AP/LAT/OBLS RTon 03-03-2024 XR KNEE 4V AP/LAT/OBLS RT * * *Final Report* * * DATE OF EXAM: Mar 03 2024 1:20PM LI[facility] 5205 - XR KNEE 4V AP/LAT/OBLS RT / PROCEDURE REASON: M25.561-Right knee pain, unspecified chronicity * * * * Physician Interpretation * * * * PROCEDURE: Right knee INDICATION: Right knee pain, unspecified chronicity .PAIN IN RIGHT KNEE TECHNIQUE: XR KNEE 4V AP/LAT/OBLS RT COMPARISON: 02/13/2024 FINDINGS: The total knee arthroplasty remains in satisfactory position without evidence for loosening. No definite periprosthetic fracture is seen. Questionable healed or healing fibular head fracture. Stable, remote appearing distal femoral fracture. Decreased size of joint effusion. IMPRESSION: Possible healing fibular head fracture. No acute fracture. Crts: CARMELA Transcribe Date/Time: Mar 04 2024 8:06P Dictated by : SONG DE LA GARZA MD This examination was interpreted and the report reviewed and electronically signed by: SONG DE LA GARZA MD on Mar 04 2024 8:09PM EST [id number] [facility] XR Knee - right AP and Later al and obliqueon 03-03-2024 Radiology Study observation (narrative) [facility] Aniket 02-15-2024 CNPN Telephone (ORMDNA) -- STACIEMAURI L ([id number]) 1955 M Date Time Provider Department 02/15/24 NUPUR DE LA ROSA During your visit today, we recorded the following information about you: Luciana Ferguson 02/15/2024 10:36 AM Signed Ted is calling Nupur De La Rosa MD today with concern regarding Patient Update: patient called in to let us know that his insurance company needs more information regarding his injury in order for him to the wheelchair that was ordered. Patient is asking that a member of the clinical team give him a call so he can inform them of this and what they are asking for. Patient has been identified by name and birthdate. Duration of symptoms: N/A Person calling: self Call patient at: at home [phone] (home) [phone] (work) [phone] (cell) Was an appointment scheduled: No Closing statement: Symptom Call: Thank you for calling [facility], your call is very important. A nurse will call in approximately 2-4 hours during business hours. If this is an emergency, please contact 911. Isabela Lock, RN 02/15/2024 10:56 AM Signed Left message for patient to return call. Isabela Rosado RN 02/15/2024 11:37 AM Signed See MyChart message Allergies As of Date: 02/15/2024 Noted Allergy Reaction LYRICA (PREGABALIN) 03/23/2017 7 - Swelling Date Reviewed: 02/13/2024 Reviewed by: Jeanne Akbar OCCA - Fully Assessed Reason for Visit: Patient Update [1234] Prescriptions as of 02/26/2024 - traMADol (ULTRAM) 50 mg tablet Take 1 tablet by mouth every 6 hours as needed for pain for up to 7 days. for pain. - aspirin, enteric coated (ASPIRIN, ENTERIC COATED) 81 mg EC tablet Take 81 mg by mouth once daily. Pt to call and clarify if needs to stop - pantoprazole DR (PROTONIX) 40 mg tablet Take 1 tablet by mouth twice daily before meals (0600/1600). - sevelamer carbonate (RENVELA) 800 mg tablet Take 800 mg by mouth three times daily with meals. - B Complex-Vitamin C-Folic Acid (NEPHRO-SAVANAH) 0.8 mg tab Take 1 tablet by mouth every morning. - loratadine (CLARITIN) 10 mg tablet Take 1 tablet by mouth once daily. - bumetanide (BUMEX) 2 mg tablet Take 2 mg by mouth every morning. - melatonin 5 mg tablet Take 10 mg by mouth at bedtime as needed for for insomnia. - insulin detemir U-100 (LEVEMIR FLEXTOUCH U-100 INSULN) 100 unit/mL (3 mL) injection pen Inject 15 Units subcutaneously daily at bedtime. - acetaminophen (TYLENOL EX STR RAPID RELEASE ORAL) Take 1-2 capsules by mouth every 6 hours as needed (pain). - atorvastatin (LIPITOR) 40 mg tablet Take 40 mg by mouth daily at bedtime. - doxazosin (CARDURA) 4 mg tablet Take 0.5 tablets by mouth twice daily. - carvedilol (COREG) 25 mg tablet Take 12.5 mg by mouth twice daily with meals. - latanoprost (XALATAN) 0.005 % ophthalmic solution Use 1 Drop in both eyes daily at bedtime. into affected eye(s). 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] 09/24/2017 Hypertension, essential [I10] 10/23/2017 Lower leg edema [R60.0] 01/22/2018 12/02/2021 Chronic left hip pain [M25.552, G89.29] 03/04/2018 10/30/2022 Anemia of chronic renal failure, stage 3 (moder*03/05/2018 12/02/2021 Acute on chronic diastolic congestive heart zane*07/14/2018 Recurrent right pleural effusion [J90] 07/14/2018 12/02/2021 PVD (peripheral vascular disease) (HCC) [I73.9] 07/16/2018 Altered mental status [R41.82] 03/24/2019 07/05/2019 UTI (urinary tract infection) [N39.0] 03/24/2019 12/02/2021 Chronic combined systolic and diastolic CHF (co*03/24/2019 Hyperkalemia [E87.5] 03/24/2019 12/02/2021 Hypoxia [R09.02] 03/24/2019 12/02/2021 Hypoalbuminemia [E88.09] 03/24/2019 12/02/2021 GARRET (acute kidney injury) (HCC) [N17.9] 03/24/2019 12/02/2021 CKD (chronic kidney disease) stage 3, GFR 30-59*03/24/2019 04/18/2019 High phosphate levels [E83.39] 03/24/2019 12/02/2021 Hyponatremia [E87.1] 03/24/2019 12/02/2021 Delirium [R41.0] 03/29/2019 12/02/2021 Malnutrition of moderate degree (HCC) [E44.0] 04/01/2019 12/02/2021 Transition of care performed with sharing of cl*04/08/2019 04/18/2019 Chronic kidney disease, stage IV (severe) (HCC)*04/18/2019 12/02/2021 Ischemic cardiomyopathy [I25.5] 04/18/2019 Sprain of ligament of cervical spine region [S1*04/18/2019 12/02/2021 History of coronary artery bypass graft [Z95.1] 04/18/2019 History of ventricular tachycardia [Z86 (more content not included)... Normal [facility] XR Ankle - right AP and Late ral and obliqueon 02-15-2024 IMPRESSION: No acute abnormality Crts: [facility] Transcribe Date/Time: Feb 15 2024 7:43A Dictated by : SONG DE LA GARZA MD This examination was interpreted and the report reviewed and electronically signed by: SONG DE LA GARZA MD on Feb 15 2024 7:44AM [facility] * * *Final Report* * * DATE OF EXAM: Feb 13 2024 3:21PM LIUDMILA 5297 - XR ANKLE 3V AP/LAT/OBL RT / PROCEDURE REASON: M25.571-Acute right ankle pain * * * * Physician Interpretation * * * * PROCEDURE: Right ankle INDICATION: Acute right ankle pain .Right ankle pain TECHNIQUE: XR ANKLE 3V AP/LAT/OBL RT COMPARISON: 11/08/2023 FINDINGS: No acute fracture or dislocation. Ankle mortise is symmetric. No advanced degenerative change. No soft tissue swelling. Advanced vascular calcifications. [facility] Provider, [facility] Gunnar [facility] - 02/15/2024 * * *Final Report* * * DATE OF EXAM: Feb 13 2024 3:21PM LIUDMILA 5297 - XR ANKLE 3V AP/LAT/OBL RT / PROCEDURE REASON: M25.571-Acute right ankle pain * * * * Physician Interpretation * * * * PROCEDURE: Right ankle INDICATION: Acute right ankle pain .Right ankle pain TECHNIQUE: XR ANKLE 3V AP/LAT/OBL RT COMPARISON: 11/08/2023 FINDINGS: No acute fracture or dislocation. Ankle mortise is symmetric. No advanced degenerative change. No soft tissue swelling. Advanced vascular calcifications. IMPRESSION IMPRESSION: No acute abnormality Crts: [facility] Transcribe Date/Time: Feb 15 2024 7:43A Dictated by : SONG DE LA GARZA MD This examination was interpreted and the report reviewed and electronically signed by: SONG DE LA GARZA MD on Feb 15 2024 7:44AM EST [facility] XR Knee - right AP and Later al and obliqueon 02-15-2024 IMPRESSION: Joint effusion. Intact TKA Crts: CARMELA Transcribe Date/Time: Feb 15 2024 7:41A Dictated by : SONG DE LA GARZA MD This examination was interpreted and the report reviewed and electronically signed by: SONG DE LA GARZA MD on Feb 15 2024 7:43AM EST [facility] * * *Final Report* * * DATE OF EXAM: Feb 13 2024 3:21PM MD 5205 - XR KNEE 4V AP/LAT/OBLS RT / PROCEDURE REASON: M25.561-Acute pain of right knee * * * * Physician Interpretation * * * * PROCEDURE: Right knee INDICATION: Acute pain of right knee .Right knee pain TECHNIQUE: XR KNEE 4V AP/LAT/OBLS RT COMPARISON: None FINDINGS: There is a total knee arthroplasty in satisfactory position without evidence for loosening. No periprosthetic fracture. There is a small joint effusion. Healing distal femoral fracture with intramedullary minesh. Advanced vascular calcifications. [facility] * * *Final Report* * * DATE OF EXAM: Feb 13 2024 3:21PM MDO 5205 - XR KNEE 4V AP/LAT/OBLS RT / PROCEDURE REASON: M25.561-Acute pain of right knee * * * * Physician Interpretation * * * * PROCEDURE: Right knee INDICATION: Acute pain of right knee .Right knee pain TECHNIQUE: XR KNEE 4V AP/LAT/OBLS RT COMPARISON: None FINDINGS: There is a total knee arthroplasty in satisfactory position without evidence for loosening. No periprosthetic fracture. There is a small joint effusion. Healing distal femoral fracture with intramedullary minesh. Advanced vascular calcifications. IMPRESSION IMPRESSION: Joint effusion. Intact TKA Crts: CARMELA Transcribe Date/Time: Feb 15 2024 7:41A Dictated by : SONG DE LA GARZA MD This examination was interpreted and the report reviewed and electronically signed by: SONG DE LA GARZA MD on Feb 15 2024 7:43AM EST [facility] XR Knee - right AP and Later al and obliqueOrdered By: Ccf Provider on 02-15-2024 [facility] CNOVon 02-13-2024 CNOV Office Visit (ORMDNA ) -- STACIEMAURI ([id number]) 1955 M Date Time Provider Department 02/13/24 2:15 PM NUPUR DE LA ROSA During your visit today, we recorded the following information about you: Flavio Rivera [employer] 02/15/2024 5:28 PM Signed PT ASSESSMENT - CASTING ROOM Mauri presents for Application of brace. Applied X-ROM knee support to Right knee set at 10 degrees flexion Patient has been instructed in Care of brace.. Flavio Rivera, Cast Tech Nupur De La Rosa MD 02/15/2024 5:28 PM Signed DEPARTMENT OF ORTHOPAEDICS HISTORY OF PRESENT ILLNESS: This is a pleasant 68 year old male, who presents today with a chief complaint of right knee pain. He complains of sharp and aching pain about the anterior and posterior aspect of approximately 11days duration. This pain is constant. He reports trauma. He complains that the pain is 4/10. He denies nocturnal pain. The pain is exacerbated by walking. Previous treatments have included knee immobilizer. He denies proximal radiation. He denies distal radiation. He denies numbness, tingling, or electric shocks. He reports popping. He reports swelling and/or warmth. Patient has had multiple issues with the right leg in the past including fractures that required intramedullary rodding and total knee arthroplasty PAIN EVALUATION 02/08/2024 1005 02/13/2024 1440 Pain Level: 8 4 Pain Location: Leg-Right Leg-Right Description: Aching;Sore;Throbbing Aching Duration Amount of Time: -- 11 Duration Units: -- Days Frequency: Continuous Continuous Intervention/Comfort measure: Medication Medication;Splinting PAST MEDICAL HISTORY Diagnosis Date Acute on chronic diastolic congestive heart failure ([facility]) 07/14/2018 GARRET (acute kidney injury) ([facility]) 03/24/2019 GARRET (acute kidney injury) ([facility]) 03/24/2019 Ankylosing spondylitis ([facility]) CAD (coronary artery disease) Cellulitis Chronic combined systolic and diastolic CHF (congestive heart failure) ([facility]) 03/24/2019 CKD (chronic kidney disease) stage 3, GFR 30-59 ml/min ([facility]) 03/24/2019 Constipation Diabetes ([facility]) Gout High phosphate levels 03/24/2019 History of coronary artery bypass graft 04/18/2019 04/10/17 CARTY to LAD, SVG to PDA, SVG to OM Hx of fracture multiple bones Hyperkalemia 03/24/2019 Hypoalbuminemia 03/24/2019 Hyponatremia 03/24/2019 Hypoxia 03/24/2019 Ischemic cardiomyopathy 04/18/2019 Echocardiogram 01/10/19 Dr. Nunez: Dilated left ventricle, left ventricular ejection fraction 40%, mild to moderate systolic dysfunction, moderate concentric LVH, dilated left and right atria. Mild mitral valve thickening with papillary muscle dysfunction, mild mitral valve insufficiency, tricuspid valve insufficiency, aortic valve insufficiency, pulmonic valve insufficiency. Aortic valve calcifi NSTEMI (non-ST elevated myocardial infarction) ([facility]) 03/12/2017 [facility] admit Osteoarthritis Transition of care performed with sharing of clinical summary 04/08/2019 Admit [facility] 03/21/19-03/22/19 Discharge diagnoses chronic kidney disease with worsening creatinine, acute kidney injury Hypokalemia Toxic encephalopathy secondary to Flexeril overusage Type 2 diabetes Ischemic cardiomyopathy Coronary artery disease Ligamental cervical neck strain and acute Pulmonary hypertension Hypertension Pyuria Preadmit: to [facility] ED with slurred speech, lethargy. PAST SURGICAL HISTORY Procedure Laterality Date ARTHRP ACETBLR/PROX FEM PROSTC AGRFT/ALGRFT Right 2019 Dr Peguero CORONARY ARTERY BYPASS GRAFT 04/12/2017 x 3 FEMUR RIGHT OP SURGERY Right Repair of fracture with hardward HIP SURGERY HX Right pin KNEE ARTHROSCOPY Left x2 KNEE SURGERY HX Right TKR, right, arthoscopy x3 PAST SURGICAL HISTORY OF 09/07/2017 08/15/17 fx radius in 2 places; plate and screws.Plate and screws 09/07/17 [facility] TOE SURGERY HX Right Current Outpatient Medications Medication Sig Dispense Refill HYDROcodone-acetaminophen (NORCO) 5-325 mg per tablet Take 1 tablet by mouth every 6 (six) hours. aspirin, enteric coated (ASPIRIN, ENTERIC COATED) 81 mg EC tablet Take 81 mg by mouth once daily. Pt to call and clarify if needs to stop pantoprazole DR (PROTONIX) 40 mg tablet Take 1 tablet by mouth twice daily before meals (0600/1600). (Patient taking differently: Take 40 mg by mouth every morning.) 180 tablet 0 sevelamer carbonate (RENVELA) 800 mg tablet Take 800 mg by mouth three times daily with meals. B Complex-Vitamin C-Folic Acid (NEPHRO-SAVANAH) 0.8 mg tab Take 1 tablet by mouth every morning. bumetanide (BUMEX) 2 mg tablet Take 2 mg by mouth every morning. melatonin 5 mg tablet Take 10 mg by mouth at bedtime as needed for for insomnia. acetaminophen (TYLENOL EX STR RAPID RELEASE ORAL) Take 1-2 capsules by mouth every 6 hours as needed (pain). atorvastatin (LIPITOR) 40 mg tablet Take 40 mg (more content not included)... Normal [facility] No Panel Informationon 02-12 Radiology Study observation (narrative) [facility] XR ANKLE 3V AP/LAT/OBL RTon 02-13-2024 XR ANKLE 3V AP/LAT/OBL RT * * *Final Report* * * DATE OF EXAM: Feb 13 2024 3:21PM LIUDMILA 5297 - XR ANKLE 3V AP/LAT/OBL RT / PROCEDURE REASON: M25.571-Acute right ankle pain * * * * Physician Interpretation * * * * PROCEDURE: Right ankle INDICATION: Acute right ankle pain .Right ankle pain TECHNIQUE: XR ANKLE 3V AP/LAT/OBL RT COMPARISON: 11/08/2023 FINDINGS: No acute fracture or dislocation. Ankle mortise is symmetric. No advanced degenerative change. No soft tissue swelling. Advanced vascular calcifications. IMPRESSION: No acute abnormality Crts: CARMELA Transcribe Date/Time: Feb 15 2024 7:43A Dictated by : SONG DE LA GARZA MD This examination was interpreted and the report reviewed and electronically signed by: SONG DE LA GARZA MD on Feb 15 2024 7:44AM EST [id number] [facility] XR KNEE 4V AP/LAT/OBLS RTon 02-13-2024 XR KNEE 4V AP/LAT/OBLS RT * * *Final Report* * * DATE OF EXAM: Feb 13 2024 3:21PM LIUDMILA 5205 - XR KNEE 4V AP/LAT/OBLS RT / PROCEDURE REASON: M25.561-Acute pain of right knee * * * * Physician Interpretation * * * * PROCEDURE: Right knee INDICATION: Acute pain of right knee .Right knee pain TECHNIQUE: XR KNEE 4V AP/LAT/OBLS RT COMPARISON: None FINDINGS: There is a total knee arthroplasty in satisfactory position without evidence for loosening. No periprosthetic fracture. There is a small joint effusion. Healing distal femoral fracture with intramedullary minesh. Advanced vascular calcifications. IMPRESSION: Joint effusion. Intact TKA Crts: CARMELA Transcribe Date/Time: Feb 15 2024 7:41A Dictated by : SONG DE LA GARZA MD This examination was interpreted and the report reviewed and electronically signed by: SONG DE LA GARZA MD on Feb 15 2024 7:43AM EST [id number] [facility] 02-07-2024 [facility] Telephone ([facility]) -- MAURI QUINONES ([id number]) 1955 M Date Time Provider Department 02/07/24 NUPUR DE LA ROSA During your visit today, we recorded the following information about you: Isabela Rosado, BISMARK 02/07/2024 7:52 AM Signed Pt has been scheduled in a locked slot The locked slots are for DR. MCCONNELL OFFICE STAFF ONLY (please see heading) These are to be used ONLY when Dr De La Rosa is electronic development technician for [place] or [facility]-please do an error report on the PSS that scheduled this Jennifer Few, Please call patient and reschedule with another provider in a correct slot Luciana Ferguson 02/11/2024 9:50 AM Signed Patient will stay on scheduled Allergies As of Date: 02/07/2024 Noted Allergy Reaction LYRICA (PREGABALIN) 03/23/2017 7 - Swelling Date Reviewed: 12/07/2023 Reviewed by: Maki Knight MA - Fully Assessed Reason for Visit: Appointment [186] Prescriptions as of 02/11/2024 - HYDROcodone-acetaminophen (NORCO) 5-325 mg per tablet Take 1 tablet by mouth every 6 (six) hours. - aspirin, enteric coated (ASPIRIN, ENTERIC COATED) 81 mg EC tablet Take 81 mg by mouth once daily. Pt to call and clarify if needs to stop - pantoprazole DR (PROTONIX) 40 mg tablet Take 1 tablet by mouth twice daily before meals (0600/1600). - sevelamer carbonate (RENVELA) 800 mg tablet Take 800 mg by mouth three times daily with meals. - B Complex-Vitamin C-Folic Acid (NEPHRO-SAVANAH) 0.8 mg tab Take 1 tablet by mouth every morning. - loratadine (CLARITIN) 10 mg tablet Take 1 tablet by mouth once daily. - bumetanide (BUMEX) 2 mg tablet Take 2 mg by mouth every morning. - melatonin 5 mg tablet Take 10 mg by mouth at bedtime as needed for for insomnia. - insulin detemir U-100 (LEVEMIR FLEXTOUCH U-100 INSULN) 100 unit/mL (3 mL) injection pen Inject 15 Units subcutaneously daily at bedtime. - acetaminophen (TYLENOL EX STR RAPID RELEASE ORAL) Take 1-2 capsules by mouth every 6 hours as needed (pain). - atorvastatin (LIPITOR) 40 mg tablet Take 40 mg by mouth daily at bedtime. - doxazosin (CARDURA) 4 mg tablet Take 0.5 tablets by mouth twice daily. - carvedilol (COREG) 25 mg tablet Take 12.5 mg by mouth twice daily with meals. - latanoprost (XALATAN) 0.005 % ophthalmic solution Use 1 Drop in both eyes daily at bedtime. into affected eye(s). 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] 09/24/2017 Hypertension, essential [I10] 10/23/2017 Lower leg edema [R60.0] 01/22/2018 12/02/2021 Chronic left hip pain [M25.552, G89.29] 03/04/2018 10/30/2022 Anemia of chronic renal failure, stage 3 (moder*03/05/2018 12/02/2021 Acute on chronic diastolic congestive heart zane*07/14/2018 Recurrent right pleural effusion [J90] 07/14/2018 12/02/2021 PVD (peripheral vascular disease) (HCC) [I73.9] 07/16/2018 Altered mental status [R41.82] 03/24/2019 07/05/2019 UTI (urinary tract infection) [N39.0] 03/24/2019 12/02/2021 Chronic combined systolic and diastolic CHF (co*03/24/2019 Hyperkalemia [E87.5] 03/24/2019 12/02/2021 Hypoxia [R09.02] 03/24/2019 12/02/2021 Hypoalbuminemia [E88.09] 03/24/2019 12/02/2021 GARRET (acute kidney injury) (HCC) [N17.9] 03/24/2019 12/02/2021 CKD (chronic kidney disease) stage 3, GFR 30-59*03/24/2019 04/18/2019 High phosphate levels [E83.39] 03/24/2019 12/02/2021 Hyponatremia [E87.1] 03/24/2019 12/02/2021 Delirium [R41.0] 03/29/2019 12/02/2021 Malnutrition of moderate degree (HCC) [E44.0] 04/01/2019 12/02/2021 Transition of care performed with sharing of cl*04/08/2019 04/18/2019 Chronic kidney disease, stage IV (severe) (HCC)*04/18/2019 12/02/2021 Ischemic cardiomyopathy [I25.5] 04/18/2019 Sprain of ligament of cervical spine region [S1*04/18/2019 12/02/2021 History of coronary artery bypass graft [Z95.1] 04/18/2019 History of ventricular tachycardia [Z86.79] 04/18/2019 Proliferative retinopathy of both eyes associat*06/17/2019 Flaccid neuropathic bladder, not elsewhere clas*06/04/2020 12/02/2021 Encounter for support and coordination of trans*10/06/2020 12/02/2021 Osteopenia, senile [M85.80] 10/06/2020 Other fracture of right femur, initial encounte*04/23/2022 UGIB (upper gastrointestinal bleed) [K92.2] 04/30/2022 10/30/2022 Blood loss anemia [D50.0] 04/30/2022 JOHNY (obstructive sleep apnea) [G47.33] 04/30/2022 Thoracic compression fracture, closed, initial *05/07/2022 ESRD (end stage renal disease) on dialysis (HCC* (more content not included)... [facility] -- MAURI QUINON[facility] ([id number]) 1955 M Date Time Provider Department [facility]/05[facility] During your visit today, we recorded the following information about you: Rebecca Moe LPN 02/05/2024 11:27 AM Signed Rozina Sheth from [facility] calling patient had fall on 02/01 in [place] and has fractured tibial plateau right leg. He is back at home now. He and his are trying to get him in with Ramón Sauceda at [facility] he has seen previously. He needs no referral. Rigoberto Gould MD 02/05/2024 11:30 AM Signed noted Allergies As of Date: 02/05/2024 Noted Allergy Reaction LYRICA (PREGABALIN) 03/23/2017 7 - Swelling Date Reviewed: 12/07/2023 Reviewed by: Maki Knight MA - Fully Assessed Reason for Visit: Patient Update [1234] Prescriptions as of 02/05/2024 - HYDROcodone-acetaminophen (NORCO) 5-325 mg per tablet Take 1 tablet by mouth every 6 (six) hours. - aspirin, enteric coated (ASPIRIN, ENTERIC COATED) 81 mg EC tablet Take 81 mg by mouth once daily. Pt to call and clarify if needs to stop - pantoprazole DR (PROTONIX) 40 mg tablet Take 1 tablet by mouth twice daily before meals (0600/1600). - sevelamer carbonate (RENVELA) 800 mg tablet Take 800 mg by mouth three times daily with meals. - B Complex-Vitamin C-Folic Acid (NEPHRO-SAVANAH) 0.8 mg tab Take 1 tablet by mouth every morning. - loratadine (CLARITIN) 10 mg tablet Take 1 tablet by mouth once daily. - bumetanide (BUMEX) 2 mg tablet Take 2 mg by mouth every morning. - melatonin 5 mg tablet Take 10 mg by mouth at bedtime as needed for for insomnia. - insulin detemir U-100 (LEVEMIR FLEXTOUCH U-100 INSULN) 100 unit/mL (3 mL) injection pen Inject 15 Units subcutaneously daily at bedtime. - acetaminophen (TYLENOL EX STR RAPID RELEASE ORAL) Take 1-2 capsules by mouth every 6 hours as needed (pain). - atorvastatin (LIPITOR) 40 mg tablet Take 40 mg by mouth daily at bedtime. - doxazosin (CARDURA) 4 mg tablet Take 0.5 tablets by mouth twice daily. - carvedilol (COREG) 25 mg tablet Take 12.5 mg by mouth twice daily with meals. - latanoprost (XALATAN) 0.005 % ophthalmic solution Use 1 Drop in both eyes daily at bedtime. into affected eye(s). 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] 09/24/2017 Hypertension, essential [I10] 10/23/2017 Lower leg edema [R60.0] 01/22/2018 12/02/2021 Chronic left hip pain [M25.552, G89.29] 03/04/2018 10/30/2022 Anemia of chronic renal failure, stage 3 (moder*03/05/2018 12/02/2021 Acute on chronic diastolic congestive heart zane*07/14/2018 Recurrent right pleural effusion [J90] 07/14/2018 12/02/2021 PVD (peripheral vascular disease) (HCC) [I73.9] 07/16/2018 Altered mental status [R41.82] 03/24/2019 07/05/2019 UTI (urinary tract infection) [N39.0] 03/24/2019 12/02/2021 Chronic combined systolic and diastolic CHF (co*03/24/2019 Hyperkalemia [E87.5] 03/24/2019 12/02/2021 Hypoxia [R09.02] 03/24/2019 12/02/2021 Hypoalbuminemia [E88.09] 03/24/2019 12/02/2021 GARRET (acute kidney injury) (HCC) [N17.9] 03/24/2019 12/02/2021 CKD (chronic kidney disease) stage 3, GFR 30-59*03/24/2019 04/18/2019 High phosphate levels [E83.39] 03/24/2019 12/02/2021 Hyponatremia [E87.1] 03/24/2019 12/02/2021 Delirium [R41.0] 03/29/2019 12/02/2021 Malnutrition of moderate degree (HCC) [E44.0] 04/01/2019 12/02/2021 Transition of care performed with sharing of cl*04/08/2019 04/18/2019 Chronic kidney disease, stage IV (severe) (HCC)*04/18/2019 12/02/2021 Ischemic cardiomyopathy [I25.5] 04/18/2019 Sprain of ligament of cervical spine region [S1*04/18/2019 12/02/2021 History of coronary artery bypass graft [Z95.1] 04/18/2019 History of ventricular tachycardia [Z86.79] 04/18/2019 Proliferative retinopathy of both eyes associat*06/17/2019 Flaccid neuropathic bladder, 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 Normal [facility] XR Tibia and Fibula - right AP and Lateralon 11-11-2023 IMPRESSION: No acute abnormality Crts: CARMELA Transcribe Date/Time: Nov 11 2023 5:37P Dictated by : SONG DE LA GARZA MD This examination was interpreted and the report reviewed and electronically signed by: SONG DE LA GARZA MD on Nov 11 2023 5:39PM [facility] DIVISION OF RADIOLOGY * * *Final Report* * * DATE OF EXAM: Nov 08 2023 3:15PM WOX 5266 - XR TIBIA FIBULA 2V AP/LAT RT / PROCEDURE REASON: 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 * * * * Physician Interpretation * * * * PROCEDURE: Right tibia/fibula INDICATION: 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 .Looking for a foreign body medial & 2-3 inches distal to patella Hx of right TKA, check on prosthesis. Lump with redness on frontal lower right leg just distal to knee. TECHNIQUE: XR TIBIA FIBULA 2V AP/LAT RT COMPARISON: Intraoperative images 04/23/2023 FINDINGS: Tibial component of the total knee arthroplasty remains in satisfactory position without evidence for loosening. Entire femoral component is not imaged. No acute periprosthetic fracture. Ankle joint is maintained. Extensive vascular calcifications. No radiopaque foreign body is seen. DIVISION OF RADIOLOGY Provider, [facility] - 11/11/2023 * * *Final Report* * * DATE OF EXAM: Nov 08 2023 3:15PM WOX 5266 - XR TIBIA FIBULA 2V AP/LAT RT / PROCEDURE REASON: 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 * * * * Physician Interpretation * * * * PROCEDURE: Right tibia/fibula INDICATION: 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 .Looking for a foreign body medial & 2-3 inches distal to patella Hx of right TKA, check on prosthesis. Lump with redness on frontal lower right leg just distal to knee. TECHNIQUE: XR TIBIA FIBULA 2V AP/LAT RT COMPARISON: Intraoperative images 04/23/2023 FINDINGS: Tibial component of the total knee arthroplasty remains in satisfactory position without evidence for loosening. Entire femoral component is not imaged. No acute periprosthetic fracture. Ankle joint is maintained. Extensive vascular calcifications. No radiopaque foreign body is seen. IMPRESSION IMPRESSION: No acute abnormality Crts: PSCB Transcribe Date/Time: Nov 11 2023 5:37P Dictated by : SONG DE LA GARZA MD This examination was interpreted and the report reviewed and electronically signed by: SONG DE LA GARZA MD on Nov 11 2023 5:39PM EST [facility] XR Tibia and Fibula - right AP and LateralOrdered By: Ccf Provider on 11-11-2023 [facility] XR Tibia and Fibula - right AP and Lateralon 11-08-2023 Radiology Study observation (narrative) [facility] COVID NAAT, UPPER RESPIRATOR Y, ROUTINEon 05-18-2023 SARS-CoV-2 (COVID-19) RNA AMADOU+probe Ql (Resp) Not detected See comment [facility] ANES POSTPROC EVALon 023 ANES POSTPROC EVAL Normal [facility] ANES PRE-OPon 04-23-2023 ANES PRE-OP Normal [facility] Basic metabolic 2000 panelon 04-23-2023 Anion gap [Moles/Vol] 8 mmol/L Normal 5-16 [facility] Comment on above: Order Comment: Speci men Type: BLOOD SPECIMENOrdering Facility: [facility] Address: [address] [place] [address] Performed By: #### 2 4321-2 ####[facility] LABORATORYCLIA [id number] [place] [address] [place] Calcium [Mass/Vol] 9.3 mg/dL Normal 8.5-10.5 [facility] Comment on above: Order Comment: Speci men Type: BLOOD SPECIMENOrdering Facility: [facility] Address: [address] [place] [address] Performed By: #### 2 4321-2 ####[facility] LABORATORYCLIA [id number] [place] [address] [place] Chloride [Moles/Vol] 100 mmol/L Normal 98-107 [facility] Comment on above: Order Comment: Speci men Type: BLOOD SPECIMENOrdering Facility: [facility] Address: [address] [place] [address] Performed By: #### 2 4321-2 ####[facility] LABORATORYCLIA [id number] [place] [address] [place] CO2 [Moles/Vol] 33 mmol/L High 21-32 [facility] Comment on above: Order Comment: Speci men Type: BLOOD SPECIMENOrdering Facility: [facility] Address: [address] [place] [address] Performed By: #### 2 4321-2 ####[facility] LABORATORYCLIA [id number] [place] [address] [place] Creatinine [Mass/Vol] 4.48 mg/dL High 0.50-1.40 [facility] Comment on above: Order Comment: Speci men Type: BLOOD SPECIMENOrdering Facility: [facility] Address: [address] [place] [address] Result Comment: Macrina ents receiving either N-Acetylcysteine (NAC) or Metamizole prior to venipuncture, may have falsely depressed results. Performed By: #### 2 4321-2 ####[facility] LABORATORYCLIA [id number] [place] [address] [place] Creatinine and Glomerular filtration rate.predicted panel (S/P/Bld) 14 mL/min/1.73m??? Low >=60 [facility] Comment on above: Order Comment: Kelsi huff Type: BLOOD SPECIMENOrdering Facility: [facility] Address: [address] [place] [address] Result Comment: Caryl mated Glomerular Filtration Rate (eGFR) is calculated using the 2020 CKD-EPI creatinine equation. This equation utilizes serum creatinine, sex, and age as parameters. The creatinine assay has traceable calibration to isotope dilution-mass spectrometry. Refer to KDIGO guidelines for clinical interpretation. In patients with unstable renal function, e.g. those with acute kidney injury, the eGFR may not accurately reflect actual GFR. Performed By: #### 2 4321-2 ####[facility] LABORATORYCLIA [id number] [place] [address] [place] Glucose [Mass/Vol] 94 mg/dL Normal 70-100 [facility] Comment on above: Order Comment: Kelsi huff Type: BLOOD SPECIMENOrdering Facility: [facility] Address: [place] [address] Result Comment: The [place] [employer] (ADA) provides guidance for cutoff values for fasting glucose and random glucose. The ADA defines fasting as no caloric intake for at least 8 hours. Fasting plasma glucose results between 100 to 125 mg/dL indicate increased risk for diabetes (prediabetes).Fasting plasma glucose results greater than or equal to 126 mg/dL meet the criteria for diagnosis of diabetes. In the absence of unequivocal hyperglycemia, results should be confirmed by repeat testing. In a patient with classic symptoms of hyperglycemia or hyperglycemic crisis, random plasma glucose results greater than or equal to 200 mg/dL meet the criteria for diagnosis of diabetes.Reference: Standards of Medical Care in Diabetes 2016, [place] [employer]. Diabetes Care. 2016.39(Suppl 1).Results may be falsely elevated after the administration of Sulfapyridine.Results may be falsely depressed after the administration of Sulfasalazine. Performed By: #### 2 4321-2 ####[facility] LABORATORYCLIA [id number] [place] [address] [place] Potassium [Moles/Vol] 3.8 mmol/L Normal 3.5-5.1 [facility] Comment on above: Order Comment: Speci men Type: BLOOD SPECIMENOrdering Facility: [facility] Address: [address] [place] [address] Performed By: #### 2 4321-2 ####[facility] LABORATORYCLIA [id number] [address] [place] [facility] Sodium [Moles/Vol] 141 mmol/L Normal 136-145 [facility] Comment on above: Order Comment: Speci men Type: BLOOD SPECIMENOrdering Facility: [facility] Address: [address] [place] [address] Performed By: #### 2 4321-2 ####[facility] LABORATORYCLIA [id number] [place] [address] [place] Urea nitrogen [Mass/Vol] 66 mg/dL High 7-26 [facility] Comment on above: Order Comment: Speci men Type: BLOOD SPECIMENOrdering Facility: [facility] Address: [address] [address] Performed By: #### 2 4321-2 ####[facility] LABORATORYCLIA [id number] [place] [address] [place] OPERATIVE NOon 04-23-2023 OPERATIVE NO Normal [facility] STAPH AUREUS PCRon 3 S. aureus and MRSA panel AMADOU+probe (Nose) Normal Negative [facility] Comment on above: Order Comment: Speci men Type: SWAB OF INTERNAL NOSEOrdering Facility: [facility] Address: [address] [address] Result Comment: Nega tive for Staphylococcus aureus by PCR.Negative for MRSA by PCR Performed By: #### S APCR ####[facility] LABORATORYCLIA [id number] [address] SURGICAL PATHOLOGYon 023 CASE REPORT Normal [facility] Comment on above: Order Comment: Speci men Type: DEVICE SPECIMENOrdering Facility: [facility] Address: [address] [place] [address] Result Comment: Surg ical Pathology Report Case: [id number] Provider: Ramón Byrd MD Collected: 04/23/2023 08:24 AMOrdering Location: [facility] Received: 04/23/2023 10:43 AMPathologist: Dev Figueroa MDSpecimen: HARDWARE, Removed hardware right femur, gross only Performed By: #### S ####[facility] LABORATORYCLIA [id number] [address] CLINICAL HISTORY Normal [facility] Comment on above: Order Comment: Speci men Type: DEVICE SPECIMENOrdering Facility: [facility] Address: [address] [place] [address] Result Comment: Pre- op diagnosis:Breakdown (mechanical) of internal fixation device of right femur, subsequent encounter [T84.114D]Periprosthetic fracture around internal prosthetic right hip joint, sequela [M97.01XS] Performed By: #### S ####[facility] LABORATORYCLIA [id number] [address] FINAL DIAGNOSIS Normal [facility] Comment on above: Order Comment: Speci men Type: DEVICE SPECIMENOrdering Facility: [facility] Address: [address] [place] [address] Result Comment: A. R emoved hardware right femur, gross only: Medical metallic hardware consisting of one screw (gross examination only). Performed By: #### S ####[facility] LABORATORYCLIA [id number] [address] FINAL PERFORMING LAB [facility] Comment on above: Order Comment: Speci men Type: DEVICE SPECIMENOrdering Facility: [facility] Address: [address] [place], [place] [address] Result Comment: Diag nostic interpretation performed at [facility], [address] [place] [address] CLIA# [id number] Director: Jannet Rincon M.D. Performed By: #### S ####[facility] LABORATORYCLIA [id number] [address] GROSS DESCRIPTION A. HARDWARE [facility] Comment on above: Order Comment: Speci men Type: DEVICE SPECIMENOrdering Facility: [facility] Address: [address] [place], [place] [address] Result Comment: Rece ived fresh labeled removed hardware right femur, gross only is one 8.1 x 0.7 x 0.7 cm screw without attached soft tissue. No sections are submitted. The specimen is for gross examination only.Gross examination performed at [address] [address]HOU/JEFFERY 04/23/23 11:33 AM Performed By: #### S ####[facility] LABORATORYCLIA [id number] [address] MICROSCOPIC DESCRIPTION Gross examination only. [facility] Comment on above: Order Comment: Speci men Type: DEVICE SPECIMENOrdering Facility: [facility] Address: [address] [place], [place] [address] Performed By: #### S ####[facility] LABORATORYCLIA [id number] [place] [address] [place] XR FLUOROSCOPYon 04-23-2023 XR FLUOROSCOPY Normal [facility] ANES PREOPon 04-20-2023 ANES PREOP [facility] 36on 04-06-2023 36 Noted Normal [facility] 36 Patient returned sabrina l to schedule. He is unable to come to office this week or next week, but states he will be able to schedule for 04/19/2023. Patient reports no pain/redness/drainage at site, though swelling bubble is still present and the site is no longer bothering him. OV: 04/19 with Stormy Mcdonnell PA-C [facility] 36 Contacted [facility] to speak with dialysis center regarding patient's complaints. Per Nurse Library Technology Instructor Mary, there appears to be a small bubbled up 2-3cm area directly on top of fistula. She stated that patient cannulated effectively and there were no other issues. Dialysis center did not order testing as they did not feel it was urgent or necessary. Attempted to call patient to schedule OV for further assessment-no answer. Left voicemail requesting patient contact [facility] to schedule. [facility] 36 Attempted to contact patient 04/05/2023, phone call disconnect. Will attempt today 04/06/2023. [facility] 36on 04-04-2023 36 It sounds like it wa s infiltrated---but these calls generally come from the dialysis center Probably best to call them and see what is really going on 1st [facility] 36 Patient called with c/o swelling and bruising at fistula site. He went to dialysis Sunday and cannulated without issues. The swelling began after Sunday's dialysis session. No signs of bleeding, no numbness, no tingling. Has dialysis T,Th,Sa @0600. Testing or OV needed to assess? Last OV: 01/02/2022- follow up for swelling around fistula Surgery: AVF 02/25/2021 [place] [facility] Basic metabolic 2000 panelon 01-04-2023 Anion gap [Moles/Vol] 7 mmol/L Normal 5-16 [facility] Comment on above: Order Comment: Kelsi huff Type: BLOOD SPECIMENOrdering Facility: [facility] Address: [address] [place] [address] Performed By: #### 2 4321-2 ####[facility] LABORATORYCLIA [id number] [place] [address] [place] Calcium [Mass/Vol] 8.7 mg/dL Normal 8.5-10.5 [facility] Comment on above: Order Comment: Kelsi huff Type: BLOOD SPECIMENOrdering Facility: [facility] Address: [address] [address] Performed By: #### 2 4321-2 ####[facility] LABORATORYCLIA [id number] [address] [id number] [place] Chloride [Moles/Vol] 96 mmol/L Low 98-107 [facility] Comment on above: Order Comment: Speci men Type: BLOOD SPECIMENOrdering Facility: [facility] Address: [address] [place] [address] Performed By: #### 2 4321-2 ####[facility] LABORATORYCLIA [id number] [place] [address] [place] CO2 [Moles/Vol] 31 mmol/L Normal 21-32 [facility] Comment on above: Order Comment: Speci men Type: BLOOD SPECIMENOrdering Facility: [facility] Address: [address] [place] [address] Performed By: #### 2 4321-2 ####[facility] LABORATORYCLIA [id number] [place] [address] [place] Creatinine [Mass/Vol] 5.50 mg/dL High 0.50-1.40 [facility] Comment on above: Order Comment: Speci men Type: BLOOD SPECIMENOrdering Facility: [facility] Address: [address] [place] [address] Result Comment: Macrina ents receiving either N-Acetylcysteine (NAC) or Metamizole prior to venipuncture, may have falsely depressed results. Performed By: #### 2 4321-2 ####[facility] LABORATORYCLIA [id number] [place] [address] [place] ESTIMATED GLOMERULAR FILTRATION RATE 11 mL/min/1.73m??? Low >=60 [facility] Comment on above: Order Comment: Speci men Type: BLOOD SPECIMENOrdering Facility: [facility] Address: [address] [place] [address] Result Comment: Caryl mated Glomerular Filtration Rate (eGFR) is calculated using the 2020 CKD-EPI creatinine equation. This equation utilizes serum creatinine, sex, and age as parameters. The creatinine assay has traceable calibration to isotope dilution-mass spectrometry. Refer to KDIGO guidelines for clinical interpretation. In patients with unstable renal function, e.g. those with acute kidney injury, the eGFR may not accurately reflect actual GFR. Performed By: #### 2 4321-2 ####[facility] LABORATORYCLIA [id number] [place] [address] [place] Glucose [Mass/Vol] 103 mg/dL High 70-100 [facility] Comment on above: Order Comment: Kelsi huff Type: BLOOD SPECIMENOrdering Facility: [facility] Address: [address] [place], [place] [address] Result Comment: The [place] [employer] (ADA) provides guidance for cutoff values for fasting glucose and random glucose. The ADA defines fasting as no caloric intake for at least 8 hours. Fasting plasma glucose results between 100 to 125 mg/dL indicate increased risk for diabetes (prediabetes).Fasting plasma glucose results greater than or equal to 126 mg/dL meet the criteria for diagnosis of diabetes. In the absence of unequivocal hyperglycemia, results should be confirmed by repeat testing. In a patient with classic symptoms of hyperglycemia or hyperglycemic crisis, random plasma glucose results greater than or equal to 200 mg/dL meet the criteria for diagnosis of diabetes.Reference: Standards of Medical Care in Diabetes 2016, [place] [employer]. Diabetes Care. 2016.39(Suppl 1).Results may be falsely elevated after the administration of Sulfapyridine.Results may be falsely depressed after the administration of Sulfasalazine. Performed By: #### 2 4321-2 ####[facility] LABORATORYCLIA [id number] [place] [address] [place] Potassium [Moles/Vol] 4.9 mmol/L Normal 3.5-5.1 [facility] Comment on above: Order Comment: Kelsi huff Type: BLOOD SPECIMENOrdering Facility: [facility] Address: [address] [place] [address] Performed By: #### 2 4321-2 ####[facility] LABORATORYCLIA [id number] [place] [id number] [place] Sodium [Moles/Vol] 134 mmol/L Low 136-145 [facility] Comment on above: Order Comment: Speci men Type: BLOOD SPECIMENOrdering Facility: [facility] Address: [address] [address] Performed By: #### 2 4321-2 ####[facility] LABORATORYCLIA [id number] [place] [address] [place] Urea nitrogen [Mass/Vol] 49 mg/dL High 7-26 [facility] Comment on above: Order Comment: Speci men Type: BLOOD SPECIMENOrdering Facility: [facility] Address: [address] [address] Performed By: #### 2 4321-2 ####[facility] LABORATORYCLIA [id number] [address] [place] CASE MANAGEMon 01-04-2023 CASE MANAGEM Normal [facility] CASE MANAGEM Normal [facility] CBC W Auto Differential pane l (Bld)on 01-04-2023 Basophils (Bld) [#/Vol] 0.03 10*3/uL Normal <0.11 [facility] Comment on above: Order Comment: Speci men Type: BLOOD SPECIMENOrdering Facility: [facility] Address: [address] [place] [address] Performed By: #### 5 7021-8 ####[facility] LABORATORYCLIA [id number] [address] [place] Basophils/100 WBC (Bld) 0.3 % Normal [facility] Comment on above: Order Comment: Speci men Type: BLOOD SPECIMENOrdering Facility: [facility] Address: [address] [address] Performed By: #### 5 7021-8 ####[facility] LABORATORYCLIA [id number] [place] [address] [place] Differential cell count method Nom (Bld) Auto Normal [facility] Comment on above: Order Comment: Speci men Type: BLOOD SPECIMENOrdering Facility: [facility] Address: [address] [address] Performed By: #### 5 7021-8 ####[facility] LABORATORYCLIA [id number] [place] [address] [place] Eosinophils (Bld) [#/Vol] 0.24 10*3/uL Normal <0.46 [facility] Comment on above: Order Comment: Speci men Type: BLOOD SPECIMENOrdering Facility: [facility] Address: [address] [place] [address] Performed By: #### 5 7021-8 ####[facility] LABORATORYCLIA [id number] [address] [place] Eosinophils/100 WBC (Bld) 2.4 % Normal [facility] Comment on above: Order Comment: Speci men Type: BLOOD SPECIMENOrdering Facility: [facility] Address: [address] [place] [address] Performed By: #### 5 7021-8 ####[facility] LABORATORYCLIA [id number] [address] [place] Erythrocyte distribution width (RBC) [Ratio] 14.1 % Normal 11.5-15.0 [facility] Comment on above: Order Comment: Speci men Type: BLOOD SPECIMENOrdering Facility: [facility] Address: [address] [place] [address] Performed By: #### 5 7021-8 ####[facility] LABORATORYCLIA [id number] [place] [address] [place] Hematocrit (Bld) [Volume fraction] 22.8 % Low 39.0-51.0 [facility] Comment on above: Order Comment: Speci men Type: BLOOD SPECIMENOrdering Facility: [facility] Address: [address] [place] [address] Performed By: #### 5 7021-8 ####[facility] LABORATORYCLIA [id number] [place] [address] [place] Hemoglobin (Bld) [Mass/Vol] 7.3 g/dL Low 13.0-17.0 [facility] Comment on above: Order Comment: Speci men Type: BLOOD SPECIMENOrdering Facility: [facility] Address: [address] [address] Performed By: #### 5 7021-8 ####[facility] LABORATORYCLIA [id number] [place] [address] [place] Immature granulocytes (Bld) [#/Vol] 0.03 10*3/uL Normal <0.10 [facility] Comment on above: Order Comment: Speci men Type: BLOOD SPECIMENOrdering Facility: [facility] Address: [address] [address] Performed By: #### 5 7021-8 ####[facility] LABORATORYCLIA [id number] [address] STATES [facility] Immature granulocytes/100 WBC (Bld) 0.3 % Normal [facility] Comment on above: Order Comment: Speci men Type: BLOOD SPECIMENOrdering Facility: [facility] Address: [address] [address] Performed By: #### 5 7021-8 ####[facility] LABORATORYCLIA [id number] [place] [address] [place] Lymphocytes (Bld) [#/Vol] 1.14 10*3/uL Normal 1.00-4.00 [facility] Comment on above: Order Comment: Speci men Type: BLOOD SPECIMENOrdering Facility: [facility] Address: [address] [address] Performed By: #### 5 7021-8 ####[facility] LABORATORYCLIA [id number] [place] [address] [place] Lymphocytes/100 WBC (Bld) 11.4 % Normal [facility] Comment on above: Order Comment: Speci men Type: BLOOD SPECIMENOrdering Facility: [facility] Address: [address] [address] Performed By: #### 5 7021-8 ####[facility] LABORATORYCLIA [id number] [address] [place] MCH (RBC) [Entitic mass] 30.9 pg Normal 26.0-34.0 [facility] Comment on above: Order Comment: Speci men Type: BLOOD SPECIMENOrdering Facility: [facility] Address: [address] [place] [address] Performed By: #### 5 7021-8 ####[facility] LABORATORYCLIA [id number] [address] [place] MCHC (RBC) [Mass/Vol] 32.0 g/dL Normal 30.5-36.0 [facility] Comment on above: Order Comment: Speci men Type: BLOOD SPECIMENOrdering Facility: [facility] Address: [address] [place] [address] Performed By: #### 5 7021-8 ####[facility] LABORATORYCLIA [id number] [address] [place] MCV (RBC) [Entitic vol] 96.6 fL Normal 80.0-100.0 [facility] Comment on above: Order Comment: Speci men Type: BLOOD SPECIMENOrdering Facility: [facility] Address: [address] [place] [address] Performed By: #### 5 7021-8 ####[facility] LABORATORYCLIA [id number] [address] [place] Monocytes (Bld) [#/Vol] 1.19 10*3/uL High <0.87 [facility] Comment on above: Order Comment: Speci men Type: BLOOD SPECIMENOrdering Facility: [facility] Address: [address] [address] Performed By: #### 5 7021-8 ####[facility] LABORATORYCLIA [id number] [address] Monocytes/100 WBC (Bld) 11.9 % Normal [facility] Comment on above: Order Comment: Speci men Type: BLOOD SPECIMENOrdering Facility: [facility] Address: [address] [place] [address] Performed By: #### 5 7021-8 ####[facility] LABORATORYCLIA [id number] [place] [address] [place] Neutrophils (Bld) [#/Vol] 7.37 10*3/uL Normal 1.45-7.50 [facility] Comment on above: Order Comment: Speci men Type: BLOOD SPECIMENOrdering Facility: [facility] Address: [address] [place] [address] Performed By: #### 5 7021-8 ####[facility] LABORATORYCLIA [id number] [place] [address] [place] Neutrophils/100 WBC (Bld) 73.7 % Normal [facility] Comment on above: Order Comment: Speci men Type: BLOOD SPECIMENOrdering Facility: [facility] Address: [address] [place] [address] Performed By: #### 5 7021-8 ####[facility] LABORATORYCLIA [id number] [place] [address] [place] Nucleated RBC (Bld) [#/Vol] 10*3/uL Normal <0.01 [facility] Comment on above: Order Comment: Speci men Type: BLOOD SPECIMENOrdering Facility: [facility] Address: [address] [place] [address] Performed By: #### 5 7021-8 ####[facility] LABORATORYCLIA [id number] [place] [address] [place] Nucleated RBC/100 WBC (Bld) [Ratio] 0.0 /100 WBC Normal [facility] Comment on above: Order Comment: Speci men Type: BLOOD SPECIMENOrdering Facility: [facility] Address: [address] [place] [address] Performed By: #### 5 7021-8 ####[facility] LABORATORYCLIA [id number] [place] [address] [place] Platelet mean volume (Bld) [Entitic vol] 9.7 fL Normal 9.0-12.7 [facility] Comment on above: Order Comment: Speci men Type: BLOOD SPECIMENOrdering Facility: [facility] Address: [address] [address] Performed By: #### 5 7021-8 ####[facility] LABORATORYCLIA [id number] [place] [id number] [facility] Platelets (Bld) [#/Vol] 148 10*3/uL Low 150-400 [facility] Comment on above: Order Comment: Speci men Type: BLOOD SPECIMENOrdering Facility: [facility] Address: [address] [address] Performed By: #### 5 7021-8 ####[facility] LABORATORYCLIA [id number] [place] [address] [place] RBC (Bld) [#/Vol] 2.36 10*6/uL Low 4.20-6.00 [facility] Comment on above: Order Comment: Speci men Type: BLOOD SPECIMENOrdering Facility: [facility] Address: [address] [place] [address] Performed By: #### 5 7021-8 ####[facility] LABORATORYCLIA [id number] [address] [place] WBC (Bld) [#/Vol] 10.00 10*3/uL Normal 3.70-11.00 [facility] Comment on above: Order Comment: Speci men Type: BLOOD SPECIMENOrdering Facility: [facility] Address: [address] Performed By: #### 5 7021-8 ####[facility] LABORATORYCLIA [id number] [place] [id number] [facility] [place] CNDSon 01-04-2023 CNDS [facility] CONSULT PROGon 01-04-2023 CONSULT PROG [facility] NURSING PROGon 01-04-2023 NURSING PROG [facility] THERAPY NTon 01-04-2023 THERAPY NT [facility] Basic metabolic 2000 panelon 01-03-2023 Anion gap [Moles/Vol] 6 mmol/L Normal 5-16 [facility] Comment on above: Order Comment: Speci men Type: BLOOD SPECIMENOrdering Facility: [facility] Address: [address] [place] [address] Performed By: #### 2 4321-2, ####[facility] LABORATORYCLIA [id number] [place] [id number] [place] Calcium [Mass/Vol] 8.5 mg/dL Normal 8.5-10.5 [facility] Comment on above: Order Comment: Speci men Type: BLOOD SPECIMENOrdering Facility: [facility] Address: [address] [place] [address] Performed By: #### 2 4321-2, ####[facility] LABORATORYCLIA [id number] [place] [address] [place] Chloride [Moles/Vol] 99 mmol/L Normal 98-107 [facility] Comment on above: Order Comment: Speci men Type: BLOOD SPECIMENOrdering Facility: [facility] Address: [address] [place] [address] Performed By: #### 2 432-2, ####[facility] LABORATORYCLIA [id number] [place] [address] [place] CO2 [Moles/Vol] 32 mmol/L Normal 21-32 [facility] Comment on above: Order Comment: Speci men Type: BLOOD SPECIMENOrdering Facility: [facility] Address: [address] [place] [address] Performed By: #### 2 4321-2, ####[facility] LABORATORYCLIA [id number] [place] [address] [place] Creatinine [Mass/Vol] 4.11 mg/dL High 0.50-1.40 [facility] Comment on above: Order Comment: Speci men Type: BLOOD SPECIMENOrdering Facility: [facility] Address: [address] [place] [address] Result Comment: Macrina ents receiving either N-Acetylcysteine (NAC) or Metamizole prior to venipuncture, may have falsely depressed results. Performed By: #### 2 4321-2, 09432-7 ####[facility] LABORATORYCLIA [id number] [place] [id number] [place] ESTIMATED GLOMERULAR FILTRATION RATE 15 mL/min/1.73m??? Low >=60 [facility] Comment on above: Order Comment: Kelsi huff Type: BLOOD SPECIMENOrdering Facility: [facility] Address: [address] [address] Result Comment: Caryl mated Glomerular Filtration Rate (eGFR) is calculated using the 2020 CKD-EPI creatinine equation. This equation utilizes serum creatinine, sex, and age as parameters. The creatinine assay has traceable calibration to isotope dilution-mass spectrometry. Refer to KDIGO guidelines for clinical interpretation. In patients with unstable renal function, e.g. those with acute kidney injury, the eGFR may not accurately reflect actual GFR. Performed By: #### 2 4321-2, 63500-1 ####[facility] LABORATORYCLIA [id number] [place] [address] [place] Glucose [Mass/Vol] 86 mg/dL Normal 70-100 [facility] Comment on above: Order Comment: Kelsi huff Type: BLOOD SPECIMENOrdering Facility: [facility] Address: [address] [place] [address] Result Comment: The [place] [employer] (ADA) provides guidance for cutoff values for fasting glucose and random glucose. The ADA defines fasting as no caloric intake for at least 8 hours. Fasting plasma glucose results between 100 to 125 mg/dL indicate increased risk for diabetes (prediabetes).Fasting plasma glucose results greater than or equal to 126 mg/dL meet the criteria for diagnosis of diabetes. In the absence of unequivocal hyperglycemia, results should be confirmed by repeat testing. In a patient with classic symptoms of hyperglycemia or hyperglycemic crisis, random plasma glucose results greater than or equal to 200 mg/dL meet the criteria for diagnosis of diabetes.Reference: Standards of Medical Care in Diabetes 2016, [place] [employer]. Diabetes Care. 2016.39(Suppl 1).Results may be falsely elevated after the administration of Sulfapyridine.Results may be falsely depressed after the administration of Sulfasalazine. Performed By: #### 2 4321-2, ####[facility] LABORATORYCLIA [id number] [place] [id number] [place] Potassium [Moles/Vol] 4.4 mmol/L Normal 3.5-5.1 [facility] Comment on above: Order Comment: Speci men Type: BLOOD SPECIMENOrdering Facility: [facility] Address: [address] [address] Performed By: #### 2 432-2, ####[facility] LABORATORYCLIA [id number] [place] [id number] [place] Sodium [Moles/Vol] 137 mmol/L Normal 136-145 [facility] Comment on above: Order Comment: Speci men Type: BLOOD SPECIMENOrdering Facility: [facility] Address: [address] [place] [address] Performed By: #### 2 43208-28, ####[facility] LABORATORYCLIA [id number] [place] [address] [place] Urea nitrogen [Mass/Vol] 33 mg/dL High 7-26 [facility] Comment on above: Order Comment: Speci men Type: BLOOD SPECIMENOrdering Facility: [facility] Address: [address] [place] [address] Performed By: #### 2 4322, ####[facility] LABORATORYCLIA [id number] [place] [address] [place] CASE MANAGEMon 01-03-2023 CASE MANAGEM Normal [facility] CBC panel Auto (Bld)on 01-03 Erythrocyte distribution width (RBC) [Ratio] 14.1 % Normal 11.5-15.0 [facility] Comment on above: Order Comment: Speci men Type: BLOOD SPECIMENOrdering Facility: [facility] Address: [address] [address] Performed By: #### 5 8410-2 ####[facility] LABORATORYCLIA [id number] [address] OF [facility] Hematocrit (Bld) [Volume fraction] 25.4 % Low 39.0-51.0 [facility] Comment on above: Order Comment: Speci men Type: BLOOD SPECIMENOrdering Facility: [facility] Address: [address] [place] [address] Performed By: #### 5 8410-2 ####[facility] LABORATORYCLIA [id number] [address] [place] Hemoglobin (Bld) [Mass/Vol] 8.2 g/dL Low 13.0-17.0 [facility] Comment on above: Order Comment: Speci men Type: BLOOD SPECIMENOrdering Facility: [facility] Address: [address] [place] [address] Performed By: #### 5 8410-2 ####[facility] LABORATORYCLIA [id number] [address] MCH (RBC) [Entitic mass] 31.1 pg Normal 26.0-34.0 [facility] Comment on above: Order Comment: Speci men Type: BLOOD SPECIMENOrdering Facility: [facility] Address: [address] [place] [address] Performed By: #### 5 8410-2 ####[facility] LABORATORYCLIA [id number] [address] [place] MCHC (RBC) [Mass/Vol] 32.3 g/dL Normal 30.5-36.0 [facility] Comment on above: Order Comment: Speci men Type: BLOOD SPECIMENOrdering Facility: [facility] Address: [address] [place] [address] Performed By: #### 5 8410-2 ####[facility] LABORATORYCLIA [id number] [address] [place] MCV (RBC) [Entitic vol] 96.2 fL Normal 80.0-100.0 [facility] Comment on above: Order Comment: Speci men Type: BLOOD SPECIMENOrdering Facility: [facility] Address: [address] Performed By: #### 5 8410-2 ####[facility] LABORATORYCLIA [id number] [place] [address] [place] Nucleated RBC (Bld) [#/Vol] 10*3/uL Normal <0.01 [facility] Comment on above: Order Comment: Speci men Type: BLOOD SPECIMENOrdering Facility: [facility] Address: [address] Performed By: #### 5 8410-2 ####[facility] LABORATORYCLIA [id number] [place] [address] [place] Platelet mean volume (Bld) [Entitic vol] 9.6 fL Normal 9.0-12.7 [facility] Comment on above: Order Comment: Speci men Type: BLOOD SPECIMENOrdering Facility: [facility] Address: [address] [address] Performed By: #### 5 8410-2 ####[facility] LABORATORYCLIA [id number] [place] [address] [place] Platelets (Bld) [#/Vol] 142 10*3/uL Low 150-400 [facility] Comment on above: Order Comment: Speci men Type: BLOOD SPECIMENOrdering Facility: [facility] Address: [address] Performed By: #### 5 8410-2 ####[facility] LABORATORYCLIA [id number] [place] [address] [place] RBC (Bld) [#/Vol] 2.64 10*6/uL Low 4.20-6.00 [facility] Comment on above: Order Comment: Speci men Type: BLOOD SPECIMENOrdering Facility: [facility] Address: [address] [address] Performed By: #### 5 8410-2 ####[facility] LABORATORYCLIA [id number] [place] [address] [place] [facility] [place] WBC (Bld) [#/Vol] 9.25 10*3/uL Normal 3.70-11.00 [facility] Comment on above: Order Comment: Speci men Type: BLOOD SPECIMENOrdering Facility: [facility] Address: [address] [place] [address] Performed By: #### 5 8410-2 ####[facility] LABORATORYCLIA [id number] [address] [place] CONSULTon 01-03-2023 CONSULT Normal [facility] CONSULT PROGon 01-03-2023 CONSULT PROG Normal [facility] ECG COMPLETEon 01-03-2023 ECG COMPLETE Normal [facility] HIGH SENSITIVITY TROPONIN Io n 01-03-2023 Tropinin I.cardiac panel High sensitivity method 42.5 pg/mL Normal 0.0-54.0 [facility] Comment on above: Order Comment: Speci men Type: BLOOD SPECIMENOrdering Facility: [facility] Address: [address] [place] [address] Result Comment: This assay uses different antibodies than our current assay, and assays, even by the same aboriginal community council member may recognize different regions of the antibody and cannot be used interchangeably. Expect results of this assay to run higher than the previous assay. Performed By: #### H STROP ####[facility] LABORATORYCLIA [id number] [address] [place] Magnesium SerPl-mCncon 01-03 Magnesium [Mass/Vol] 1.7 mg/dL Normal 1.6-2.6 [facility] Comment on above: Order Comment: Speci men Type: BLOOD SPECIMENOrdering Facility: [facility] Address: [address] [place] [address] Performed By: #### 2 4321-2, 60261-6 ####[facility] LABORATORYCLIA [id number] [place] [address] [place] THERAPY NTon 01-03-2023 THERAPY NT Normal [facility] THERAPY NT Normal [facility] Albumin SerPl-mCncon 05-09-2 023 Albumin [Mass/Vol] 2.7 g/dL Low 3.2-5.0 [facility] Comment on above: Order Comment: Speci men Type: BLOOD SPECIMENOrdering Facility: [facility] Address: [address] [place] [address] Performed By: #### 1 751-7, 2777-1, 49663-8, 03918-6, 5195-3, 54918-9 ####[facility] LABORATORYCLIA [id number] [place] [address] [place] Basic metabolic 2000 panelon 01-02-2023 Anion gap [Moles/Vol] 7 mmol/L Normal 5-16 [facility] Comment on above: Order Comment: Speci men Type: BLOOD SPECIMENOrdering Facility: [facility] Address: [address] [place] [address] Performed By: #### 1 751-7, 2777-1, 41291-3, 25625-9, 5194-3, 45907-2 ####[facility] LABORATORYCLIA [id number] [place] [address] [place] Calcium [Mass/Vol] 8.7 mg/dL Normal 8.5-10.5 [facility] Comment on above: Order Comment: Speci men Type: BLOOD SPECIMENOrdering Facility: [facility] Address: [address] [place] [address] Performed By: #### 1 751-7, 2777-1, 40916-3, 08247-2, 5-3, 98739-4 ####[facility] LABORATORYCLIA [id number] [place] [address] [place] Chloride [Moles/Vol] 101 mmol/L Normal 98-107 [facility] Comment on above: Order Comment: Speci men Type: BLOOD SPECIMENOrdering Facility: [facility] Address: [address] [place] [address] Performed By: #### 1 751-7, 2777-1, 95691-2, 31540-8, 5-3, 94659-9 ####[facility] LABORATORYCLIA [id number] [place] [address] [place] CO2 [Moles/Vol] 28 mmol/L Normal 21-32 [facility] Comment on above: Order Comment: Kelsi huff Type: BLOOD SPECIMENOrdering Facility: [facility] Address: [address] [place] [address] Performed By: #### 1 751-7, 2777-1, 65969-9, 36523-1, 5195-3, 55340-0 ####[facility] LABORATORYCLIA [id number] [place] [address] [place] Creatinine [Mass/Vol] 5.79 mg/dL High 0.50-1.40 [facility] Comment on above: Order Comment: Speci men Type: BLOOD SPECIMENOrdering Facility: [facility] Address: [address] [place] [address] Result Comment: Macrina ents receiving either N-Acetylcysteine (NAC) or Metamizole prior to venipuncture, may have falsely depressed results. Performed By: #### 1 751-7, 2777-1, 04510-5, 05151-1, 5194-3, 82229-3 ####[facility] LABORATORYCLIA [id number] [place] [address] [place] ESTIMATED GLOMERULAR FILTRATION RATE 10 mL/min/1.73m??? Low >=60 [facility] Comment on above: Order Comment: Kelsi huff Type: BLOOD SPECIMENOrdering Facility: [facility] Address: [address] [place] [address] Result Comment: Caryl mated Glomerular Filtration Rate (eGFR) is calculated using the 2020 CKD-EPI creatinine equation. This equation utilizes serum creatinine, sex, and age as parameters. The creatinine assay has traceable calibration to isotope dilution-mass spectrometry. Refer to KDIGO guidelines for clinical interpretation. In patients with unstable renal function, e.g. those with acute kidney injury, the eGFR may not accurately reflect actual GFR. Performed By: #### 1 751-7, 2777-1, 91010-1, 73353-7, 5-3, 34796-3 ####[facility] LABORATORYCLIA [id number] [place] [address] [place] Glucose [Mass/Vol] 111 mg/dL High 70-100 [facility] Comment on above: Order Comment: Speci men Type: BLOOD SPECIMENOrdering Facility: [facility] Address: [address] [place] [address] Result Comment: The [place] [employer] (ADA) provides guidance for cutoff values for fasting glucose and random glucose. The ADA defines fasting as no caloric intake for at least 8 hours. Fasting plasma glucose results between 100 to 125 mg/dL indicate increased risk for diabetes (prediabetes).Fasting plasma glucose results greater than or equal to 126 mg/dL meet the criteria for diagnosis of diabetes. In the absence of unequivocal hyperglycemia, results should be confirmed by repeat testing. In a patient with classic symptoms of hyperglycemia or hyperglycemic crisis, random plasma glucose results greater than or equal to 200 mg/dL meet the criteria for diagnosis of diabetes.Reference: Standards of Medical Care in Diabetes 2016, [place] [employer]. Diabetes Care. 2016.39(Suppl 1).Results may be falsely elevated after the administration of Sulfapyridine.Results may be falsely depressed after the administration of Sulfasalazine. Performed By: #### 1 751-7, 2777-1, 86243-0, 44487-5, 5-3, 90405-7 ####[facility] LABORATORYCLIA [id number] [place] [id number] [place] Potassium [Moles/Vol] 5.7 mmol/L High 3.5-5.1 [facility] Comment on above: Order Comment: Speci men Type: BLOOD SPECIMENOrdering Facility: [facility] Address: [place] [address] Performed By: #### 1 751-7, 2777-1, 74750-0, 72034-5, 5194-3, 99382-8 ####[facility] LABORATORYCLIA [id number] [place] [address] [place] Sodium [Moles/Vol] 136 mmol/L Normal 136-145 [facility] Comment on above: Order Comment: Speci men Type: BLOOD SPECIMENOrdering Facility: [facility] Address: [address] [address] Performed By: #### 1 751-7, 2777-1, 55192-0, 34243-8, 5195-3, 90287-4 ####[facility] LABORATORYCLIA [id number] [place] [id number] [facility] Urea nitrogen [Mass/Vol] 59 mg/dL High 03-21 [facility] Comment on above: Order Comment: Speci men Type: BLOOD SPECIMENOrdering Facility: [facility] Address: [address] [address] Performed By: #### 1 751-7, 2777-1, 62410-5, 89351-7, 5195-3, 89808-3 ####[facility] LABORATORYCLIA [id number] [address] CASE MANAGEMon 01-02-2023 CASE MANAGEM Normal [facility] CASE MGT INIT ASSESon 2022 CASE MGT INIT [facility] CBC panel Auto (Bld)on 01-02 Erythrocyte distribution width (RBC) [Ratio] 14.0 % Normal 11.5-15.0 [facility] Comment on above: Order Comment: Speci men Type: BLOOD SPECIMENOrdering Facility: [facility] Address: [address] [address] Performed By: #### 5 8410-2 ####[facility] LABORATORYCLIA [id number] [address] Hematocrit (Bld) [Volume fraction] 26.2 % Low 39.0-51.0 [facility] Comment on above: Order Comment: Speci men Type: BLOOD SPECIMENOrdering Facility: [facility] Address: [address] [address] Performed By: #### 5 8410-2 ####[facility] LABORATORYCLIA [id number] [address] [facility] Hemoglobin (Bld) [Mass/Vol] 8.5 g/dL Low 13.0-17.0 [facility] Comment on above: Order Comment: Speci men Type: BLOOD SPECIMENOrdering Facility: [facility] Address: [address] [address] Performed By: #### 5 8410-2 ####[facility] LABORATORYCLIA [id number] [address] MCH (RBC) [Entitic mass] 31.0 pg Normal 26.0-34.0 [facility] Comment on above: Order Comment: Speci men Type: BLOOD SPECIMENOrdering Facility: [facility] Address: [address] [place] [address] Performed By: #### 5 8410-2 ####[facility] LABORATORYCLIA [id number] [address] STATES OF [facility] MCHC (RBC) [Mass/Vol] 32.4 g/dL Normal 30.5-36.0 [facility] Comment on above: Order Comment: Speci men Type: BLOOD SPECIMENOrdering Facility: [facility] Address: [address] [place] [address] Performed By: #### 5 8410-2 ####[facility] LABORATORYCLIA [id number] [address] [place] MCV (RBC) [Entitic vol] 95.6 fL Normal 80.0-100.0 [facility] Comment on above: Order Comment: Speci men Type: BLOOD SPECIMENOrdering Facility: [facility] Address: [address] [address] Performed By: #### 5 8410-2 ####[facility] LABORATORYCLIA [id number] [address] Nucleated RBC (Bld) [#/Vol] 10*3/uL Normal <0.01 [facility] Comment on above: Order Comment: Speci men Type: BLOOD SPECIMENOrdering Facility: [facility] Address: [address] [place], [place] [address] Performed By: #### 5 8410-2 ####[facility] LABORATORYCLIA [id number] [place] [id number] [place] Platelet mean volume (Bld) [Entitic vol] 9.3 fL Normal 9.0-12.7 [facility] Comment on above: Order Comment: Speci men Type: BLOOD SPECIMENOrdering Facility: [facility] Address: [address] [address] Performed By: #### 5 8410-2 ####[facility] LABORATORYCLIA [id number] [place] [address] [place] Platelets (Bld) [#/Vol] 143 10*3/uL Low 150-400 [facility] Comment on above: Order Comment: Speci men Type: BLOOD SPECIMENOrdering Facility: [facility] Address: [address] [place] [address] Performed By: #### 5 8410-2 ####[facility] LABORATORYCLIA [id number] [place] [address] [place] RBC (Bld) [#/Vol] 2.74 10*6/uL Low 4.20-6.00 [facility] Comment on above: Order Comment: Speci men Type: BLOOD SPECIMENOrdering Facility: [facility] Address: [address] [place] [address] Performed By: #### 5 8410-2 ####[facility] LABORATORYCLIA [id number] [place] [address] [place] WBC (Bld) [#/Vol] 7.00 10*3/uL Normal 3.70-11.00 [facility] Comment on above: Order Comment: Speci men Type: BLOOD SPECIMENOrdering Facility: [facility] Address: [address] [place] [address] Performed By: #### 5 8410-2 ####[facility] LABORATORYCLIA [id number] [place] [id number] [facility] [place] CONSULT PROGon 01-02-2023 CONSULT PROG Normal [facility] HBV surface Ab Ql (S)on HBV surface Ab Qn (S) 1100.50 mIU/mL High 0.00-9.99 [facility] Comment on above: Order Comment: Speci daria Type: BLOOD SPECIMENOrdering Facility: [facility] Address: [address] [place] [address] Result Comment: STAT US OF IMMUNITYProtective Immunity: greater than or equal to 10 mIU/mL (Traceable to WHO International Reference Preparation)No Protective Immunity: less than 10 mIU/mLNote: The magnitude of the measured result above the cutoff is not indicative of the total amount of antibody present.WAIT FOR DILUTION IF > Performed By: #### 1 751-7, 2777-1, 98578-3, 92221-2, 5195-3, 59674-3 ####[facility] LABORATORYCLIA [id number] [place] [address] [place] HBV surface Ab Ser Qlon HBV surface Ab Ql (S) Positive Normal Positive [facility] Comment on above: Order Comment: Speci daria Type: BLOOD SPECIMENOrdering Facility: [facility] Address: [address] [place] [address] Result Comment: Thes e results are consistent with previous exposure and/or immunity to the hepatitis B virus antigen. Performed By: #### 1 751-7, 2777-1, 92837-4, 62531-8, 5-3, 12172-1 ####[facility] LABORATORYCLIA [id number] [place] [address] [place] HBV surface Ag Ser Qlon HBV surface Ag Ql (S) Non-Reactive Normal Equivo sabrina, Nonreactive [facility] Comment on above: Order Comment: [facility] Type: BLOOD SPECIMENOrdering Facility: [facility] Address: [address] [place] [address] Result Comment: Resu lts were obtained with the [employer] IM IgM assay. Values obtained with different manufactures' assay methods may not be used interchangeably. Performed By: #### 1 751-7, 2777-1, 73831-4, 67505-0, 5-3, 40693-9 ####[facility] LABORATORYCLIA [id number] [place] [address] [place] Iron and Iron binding capaci ty panelon 01-02-2023 Iron [Mass/Vol] 12 ug/dL Low 65-175 [facility] Comment on above: Order Comment: Speci men Type: BLOOD SPECIMENOrdering Facility: [facility] Address: [address] [place] [address] Result Comment: Macrina ents treated with metal-binding drugs (e.g.deferoxamine) may have depressed iron values, as chelated iron may not properly react in the Siemens iron assay. Performed By: #### 1 751-7, 2777-1, 91685-8, 09747-9, 5-3, 80950-4 ####[facility] LABORATORYCLIA [id number] [address] [place] Iron binding capacity [Mass/Vol] 196 ug/dL Low 221-481 [facility] Comment on above: Order Comment: Speci men Type: BLOOD SPECIMENOrdering Facility: [facility] Address: [address] [place] [address] Performed By: #### 1 751-7, 2777-1, 51113-8, 59324-3, 5-3, 88542-7 ####[facility] LABORATORYCLIA [id number] [address] [place] Iron/TIBC [Molar ratio] 6.1 % Low 22.0-44.0 [facility] Comment on above: Order Comment: Speci men Type: BLOOD SPECIMENOrdering Facility: [facility] Address: [address] [place] [address] Performed By: #### 1 751-7, 2777-1, 82136-6, 01571-7, 5-3, 59947-2 ####[facility] LABORATORYCLIA [id number] [address] NURSING PROGon 01-02-2023 NURSING PROG [facility] Phosphate SerPl-mCncon 01-02 Phosphate [Mass/Vol] 5.5 mg/dL High 2.5-4.9 [facility] Comment on above: Order Comment: Speci men Type: BLOOD SPECIMENOrdering Facility: [facility] Address: [address] [place] [address] Result Comment: Elev ated m-protein (paraprotein) levels in the serum may be exhibited in patients with monoclonal gammopathies, causing falsely elevated inorganic phosphorus results. Performed By: #### 1 751-7, 2777-1, 14816-4, 70488-4, 5195-3, 44525-9 ####[facility] LABORATORYCLIA [id number] [address] THERAPY NTon 01-02-2023 THERAPY NT [facility] THERAPY NT [facility] XR CHEST 1V FRONTALon 2022 XR CHEST 1V FRONTAL [facility] ANES POSTPROC EVALon 023 ANES POSTPROC EVAL [facility] ANES PRE-OPon 01-01-2023 ANES PRE-OP [facility] ANTIBODY ID PATIENTon 2022 ANTIBODY IDENTIFIED Anti-C [facility] Comment on above: Order Comment: Speci men Type: BLOOD SPECIMENOrdering Facility: [facility] Address: [address] [place] [address] Result Comment: Anti -DAnti-E Performed By: #### T SCR, %[place], DAGT ####[facility] BLOOD BANKCLIA [id number] [address] Bacteria Spec Anaerobe Culto n 01-01-2023 Bacteria identified Anaer cx Nom (Unsp spec) CULTURE, ANAEROBE: Anaerobe culture reviewed, negative at day 6. [facility] Comment on above: Performed By: #### 6 35-3 ####[facility] LABORATORYCLIA [id number] [place] [address] [place] Bacteria identified Anaer cx Nom (Unsp spec) CULTURE, ANAEROBE: Anaerobe culture reviewed, negative at day 3. Normal [facility] Comment on above: Performed By: #### 6 35-3 ####[facility] LABORATORYCLIA [id number] [place] [address] [place] Bacteria identified Anaer cx Nom (Unsp spec) CULTURE, ANAEROBE: Anaerobe culture reviewed, negative at day 3. [facility] Comment on above: Performed By: #### 6 35-3 ####[facility] LABORATORYCLIA [id number] [place] [address] [place] Bacteria Tiss Culton 023 Bacteria identified Cx Nom (Tiss) CULTURE, TISSUE: No growth 5 days GRAM STAIN: Rare Polymorphonuclear leukocytes No organisms seen [facility] Comment on above: Performed By: #### 4 3408-4 ####[facility] LABORATORYCLIA [id number] [place] [address] [place] Bacteria Wnd Culton 01-02-20 23 Bacteria identified Cx Nom (Wound) CULTURE, WOUND: No growth 3 days GRAM STAIN: Few Polymorphonuclear leukocytes No organisms seen [facility] Comment on above: Performed By: #### 6 462-6 ####[facility] LABORATORYCLIA [id number] [place] [address] [place] Bacteria identified Cx Nom (Wound) CULTURE, WOUND: No growth 3 days GRAM STAIN: Few Polymorphonuclear leukocytes No organisms seen Normal [facility] Comment on above: Performed By: #### 6 462-6 ####[facility] LABORATORYCLIA [id number] [place] [address] [place] Basic metabolic 2000 panelon 01-01-2023 Anion gap [Moles/Vol] 9 mmol/L Normal -16 [facility] Comment on above: Order Comment: Speci men Type: BLOOD SPECIMENOrdering Facility: [facility] Address: [address] [place] [phone] Performed By: #### 2 4321-2 ####[facility] LABORATORYCLIA [id number] [place] [address] [place] Calcium [Mass/Vol] 8.7 mg/dL Normal 8.5-10.5 [facility] Comment on above: Order Comment: Speci men Type: BLOOD SPECIMENOrdering Facility: [facility] Address: [address] [address] Performed By: #### 2 4321-2 ####[facility] LABORATORYCLIA [id number] [place] [address] [place] Chloride [Moles/Vol] 101 mmol/L Normal 98-107 [facility] Comment on above: Order Comment: Speci men Type: BLOOD SPECIMENOrdering Facility: [facility] Address: [address] [place] [address] Performed By: #### 2 4321-2 ####[facility] LABORATORYCLIA [id number] [place] [address] [place] CO2 [Moles/Vol] 28 mmol/L Normal 21-32 [facility] Comment on above: Order Comment: Speci men Type: BLOOD SPECIMENOrdering Facility: [facility] Address: [address] [place] [address] Performed By: #### 2 4321-2 ####[facility] LABORATORYCLIA [id number] [place] [address] [place] Creatinine [Mass/Vol] 5.19 mg/dL High 0.50-1.40 [facility] Comment on above: Order Comment: Speci men Type: BLOOD SPECIMENOrdering Facility: [facility] Address: [address] [place] [address] Result Comment: Macrina ents receiving either N-Acetylcysteine (NAC) or Metamizole prior to venipuncture, may have falsely depressed results. Performed By: #### 2 4321-2 ####[facility] LABORATORYCLIA [id number] [place] [address] [place] ESTIMATED GLOMERULAR FILTRATION RATE 12 mL/min/1.73m??? Low >=60 [facility] Comment on above: Order Comment: Kelsi huff Type: BLOOD SPECIMENOrdering Facility: [facility] Address: [address] [phone] Result Comment: Caryl mated Glomerular Filtration Rate (eGFR) is calculated using the 2020 CKD-EPI creatinine equation. This equation utilizes serum creatinine, sex, and age as parameters. The creatinine assay has traceable calibration to isotope dilution-mass spectrometry. Refer to KDIGO guidelines for clinical interpretation. In patients with unstable renal function, e.g. those with acute kidney injury, the eGFR may not accurately reflect actual GFR. Performed By: #### 2 4321-2 ####[facility] LABORATORYCLIA [id number] [place] [address] [place] Glucose [Mass/Vol] 113 mg/dL High 70-100 [facility] Comment on above: Order Comment: Kelsi huff Type: BLOOD SPECIMENOrdering Facility: [facility] Address: [address] [place] [address] Result Comment: The [place] [employer] (ADA) provides guidance for cutoff values for fasting glucose and random glucose. The ADA defines fasting as no caloric intake for at least 8 hours. Fasting plasma glucose results between 100 to 125 mg/dL indicate increased risk for diabetes (prediabetes).Fasting plasma glucose results greater than or equal to 126 mg/dL meet the criteria for diagnosis of diabetes. In the absence of unequivocal hyperglycemia, results should be confirmed by repeat testing. In a patient with classic symptoms of hyperglycemia or hyperglycemic crisis, random plasma glucose results greater than or equal to 200 mg/dL meet the criteria for diagnosis of diabetes.Reference: Standards of Medical Care in Diabetes 2016, [place] [employer]. Diabetes Care. 2016.39(Suppl 1).Results may be falsely elevated after the administration of Sulfapyridine.Results may be falsely depressed after the administration of Sulfasalazine. Performed By: #### 2 4321-2 ####[facility] LABORATORYCLIA [id number] [place] [address] [place] Potassium [Moles/Vol] 5.1 mmol/L Normal 3.5-5.1 [facility] Comment on above: Order Comment: Kelsi huff Type: BLOOD SPECIMENOrdering Facility: [facility] Address: [address] [address] Performed By: #### 2 4321-2 ####[facility] LABORATORYCLIA [id number] [address] [id number] [place] Sodium [Moles/Vol] 138 mmol/L Normal 136-145 [facility] Comment on above: Order Comment: Speci men Type: BLOOD SPECIMENOrdering Facility: [facility] Address: [address] [address] Performed By: #### 2 4321-2 ####[facility] LABORATORYCLIA [id number] [place] [address] [place] Urea nitrogen [Mass/Vol] 53 mg/dL High 7-26 [facility] Comment on above: Order Comment: Speci men Type: BLOOD SPECIMENOrdering Facility: [facility] Address: [address] [address] Performed By: #### 2 4321-2 ####[facility] LABORATORYCLIA [id number] [place] [address] [place] Anion gap [Moles/Vol] 7 mmol/L Normal 5-16 [facility] Comment on above: Order Comment: Speci men Type: BLOOD SPECIMENOrdering Facility: [facility] Address: [address] [address] Performed By: #### 2 4321-2 ####[facility] LABORATORYCLIA [id number] [place] [address] [place] Calcium [Mass/Vol] 9.1 mg/dL Normal 8.5-10.5 [facility] Comment on above: Order Comment: Speci men Type: BLOOD SPECIMENOrdering Facility: [facility] Address: [address] [address] Performed By: #### 2 4321-2 ####[facility] LABORATORYCLIA [id number] [address] [place] [id number] [place] Chloride [Moles/Vol] 100 mmol/L Normal 98-107 [facility] Comment on above: Order Comment: Speci men Type: BLOOD SPECIMENOrdering Facility: [facility] Address: [address] [address] Performed By: #### 2 4321-2 ####[facility] LABORATORYCLIA [id number] [place] [address] [place] CO2 [Moles/Vol] 30 mmol/L Normal 21-32 [facility] Comment on above: Order Comment: Speci men Type: BLOOD SPECIMENOrdering Facility: [facility] Address: [address] [address] Performed By: #### 2 4321-2 ####[facility] LABORATORYCLIA [id number] [place] [address] [place] Creatinine [Mass/Vol] 5.13 mg/dL High 0.50-1.40 [facility] Comment on above: Order Comment: Speci men Type: BLOOD SPECIMENOrdering Facility: [facility] Address: [address] [place] [address] Result Comment: Macrina ents receiving either N-Acetylcysteine (NAC) or Metamizole prior to venipuncture, may have falsely depressed results. Performed By: #### 2 4321-2 ####[facility] LABORATORYIA [id number] [address] ESTIMATED GLOMERULAR FILTRATION RATE 12 mL/min/1.73m??? Low >=60 [facility] Comment on above: Order Comment: Speci men Type: BLOOD SPECIMENOrdering Facility: [facility] Address: [address] [place] [address] Result Comment: Caryl mated Glomerular Filtration Rate (eGFR) is calculated using the 2020 CKD-EPI creatinine equation. This equation utilizes serum creatinine, sex, and age as parameters. The creatinine assay has traceable calibration to isotope dilution-mass spectrometry. Refer to KDIGO guidelines for clinical interpretation. In patients with unstable renal function, e.g. those with acute kidney injury, the eGFR may not accurately reflect actual GFR. Performed By: #### 2 4321-2 ####[facility] LABORATORYCLIA [id number] [place] [address] [place] Glucose [Mass/Vol] 88 mg/dL Normal 70-100 [facility] Comment on above: Order Comment: Kelsi men Type: BLOOD SPECIMENOrdering Facility: [facility] Address: [address] [place] [address] Result Comment: The [place] Diabetes Association (ADA) provides guidance for cutoff values for fasting glucose and random glucose. The ADA defines fasting as no caloric intake for at least 8 hours. Fasting plasma glucose results between 100 to 125 mg/dL indicate increased risk for diabetes (prediabetes).Fasting plasma glucose results greater than or equal to 126 mg/dL meet the criteria for diagnosis of diabetes. In the absence of unequivocal hyperglycemia, results should be confirmed by repeat testing. In a patient with classic symptoms of hyperglycemia or hyperglycemic crisis, random plasma glucose results greater than or equal to 200 mg/dL meet the criteria for diagnosis of diabetes.Reference: Standards of Medical Care in Diabetes 2016, [place] [employer]. Diabetes Care. 2016.39(Suppl 1).Results may be falsely elevated after the administration of Sulfapyridine.Results may be falsely depressed after the administration of Sulfasalazine. Performed By: #### 2 4321-2 ####[facility] LABORATORYCLIA [id number] [place] [address] [place] Potassium [Moles/Vol] 5.7 mmol/L High 3.5-5.1 [facility] Comment on above: Order Comment: Kelsi daria Type: BLOOD SPECIMENOrdering Facility: [facility] Address: [address] [place] [address] Performed By: #### 2 4321-2 ####[facility] LABORATORYCLIA [id number] [place] [address] [place] Sodium [Moles/Vol] 137 mmol/L Normal 136-145 [facility] Comment on above: Order Comment: Kelsi uhff Type: BLOOD SPECIMENOrdering Facility: [facility] Address: [address] [place] [address] Performed By: #### 2 4321-2 ####[facility] LABORATORYCLIA [id number] [place] [address] [place] Urea nitrogen [Mass/Vol] 53 mg/dL High 7- [facility] Comment on above: Order Comment: Speci men Type: BLOOD SPECIMENOrdering Facility: [facility] Address: [address] [place] [address] Performed By: #### 2 4321-2 ####[facility] LABORATORYCLIA [id number] [place] [address] [place] CBC W Auto Differential pane l (Bld)on 01-01-2023 Basophils (Bld) [#/Vol] 10*3/uL Normal <0.11 [facility] Comment on above: Order Comment: Speci men Type: BLOOD SPECIMENOrdering Facility: [facility] Address: [address] [place] [address] Performed By: #### 5 7021-8 ####[facility] LABORATORYCLIA [id number] [place] [address] [place] Basophils/100 WBC (Bld) 0.2 % Normal [facility] Comment on above: Order Comment: Speci men Type: BLOOD SPECIMENOrdering Facility: [facility] Address: [address] [place] [address] Performed By: #### 5 7021-8 ####[facility] LABORATORYCLIA [id number] [address] STATES [facility] Differential cell count method Nom (Bld) Auto Normal [facility] Comment on above: Order Comment: Speci men Type: BLOOD SPECIMENOrdering Facility: [facility] Address: [address] [address] Performed By: #### 5 7021-8 ####[facility] LABORATORYCLIA [id number] [place] [address] [place] Eosinophils (Bld) [#/Vol] 0.12 10*3/uL Normal <0.46 [facility] Comment on above: Order Comment: Speci men Type: BLOOD SPECIMENOrdering Facility: [facility] Address: [address] [place] [address] Performed By: #### 5 7021-8 ####[facility] LABORATORYCLIA [id number] [place] [address] [place] Eosinophils/100 WBC (Bld) 1.9 % Normal [facility] Comment on above: Order Comment: Speci men Type: BLOOD SPECIMENOrdering Facility: [facility] Address: [address] [place] [address] Performed By: #### 5 7021-8 ####[facility] LABORATORYCLIA [id number] [address] [place] Erythrocyte distribution width (RBC) [Ratio] 13.8 % Normal 11.5-15.0 [facility] Comment on above: Order Comment: Speci men Type: BLOOD SPECIMENOrdering Facility: [facility] Address: [address] [place] [address] Performed By: #### 5 7021-8 ####[facility] LABORATORYCLIA [id number] [address] [place] Hematocrit (Bld) [Volume fraction] 31.5 % Low 39.0-51.0 [facility] Comment on above: Order Comment: Speci men Type: BLOOD SPECIMENOrdering Facility: [facility] Address: [address] [place] [address] Performed By: #### 5 7021-8 ####[facility] LABORATORYCLIA [id number] [address] [place] Hemoglobin (Bld) [Mass/Vol] 10.8 g/dL Low 13.0-17.0 [facility] Comment on above: Order Comment: Speci men Type: BLOOD SPECIMENOrdering Facility: [facility] Address: [address] [place] [address] Performed By: #### 5 7021-8 ####[facility] LABORATORYCLIA [id number] [address] [place] Immature granulocytes (Bld) [#/Vol] 10*3/uL Normal <0.10 [facility] Comment on above: Order Comment: Speci men Type: BLOOD SPECIMENOrdering Facility: [facility] Address: [address] [address] Performed By: #### 5 7021-8 ####[facility] LABORATORYCLIA [id number] [address] [place] Immature granulocytes/100 WBC (Bld) 0.3 % Normal [facility] Comment on above: Order Comment: Speci men Type: BLOOD SPECIMENOrdering Facility: [facility] Address: [address] [place] [address] Performed By: #### 5 7021-8 ####[facility] LABORATORYCLIA [id number] [place] [address] [place] Lymphocytes (Bld) [#/Vol] 0.75 10*3/uL Low 1.00-4.00 [facility] Comment on above: Order Comment: Speci men Type: BLOOD SPECIMENOrdering Facility: [facility] Address: [address] [place] [address] Performed By: #### 5 7021-8 ####[facility] LABORATORYCLIA [id number] [address] [place] Lymphocytes/100 WBC (Bld) 12.0 % Normal [facility] Comment on above: Order Comment: Speci men Type: BLOOD SPECIMENOrdering Facility: [facility] Address: [address] [place] [address] Performed By: #### 5 7021-8 ####[facility] LABORATORYCLIA [id number] [place] [address] [place] MCH (RBC) [Entitic mass] 32.9 pg Normal 26.0-34.0 [facility] Comment on above: Order Comment: Speci men Type: BLOOD SPECIMENOrdering Facility: [facility] Address: [address] [place] [address] Performed By: #### 5 7021-8 ####[facility] LABORATORYCLIA [id number] [place] [address] [place] MCHC (RBC) [Mass/Vol] 34.3 g/dL Normal 30.5-36.0 [facility] Comment on above: Order Comment: Speci men Type: BLOOD SPECIMENOrdering Facility: [facility] Address: [address] [address] Performed By: #### 5 7021-8 ####[facility] LABORATORYCLIA [id number] [place] [address] [place] MCV (RBC) [Entitic vol] 96.0 fL Normal 80.0-100.0 [facility] Comment on above: Order Comment: Speci men Type: BLOOD SPECIMENOrdering Facility: [facility] Address: [address] [address] Performed By: #### 5 7021-8 ####[facility] LABORATORYCLIA [id number] [place] [address] [place] Monocytes (Bld) [#/Vol] 0.65 10*3/uL Normal <0.87 [facility] Comment on above: Order Comment: Speci men Type: BLOOD SPECIMENOrdering Facility: [facility] Address: [address] [address] Performed By: #### 5 7021-8 ####[facility] LABORATORYCLIA [id number] [address] [place] Monocytes/100 WBC (Bld) 10.4 % Normal [facility] Comment on above: Order Comment: Speci men Type: BLOOD SPECIMENOrdering Facility: [facility] Address: [address] [address] Performed By: #### 5 7021-8 ####[facility] LABORATORYCLIA [id number] [place] [address] [place] Neutrophils (Bld) [#/Vol] 4.70 10*3/uL Normal 1.45-7.50 [facility] Comment on above: Order Comment: Speci men Type: BLOOD SPECIMENOrdering Facility: [facility] Address: [address] [address] Performed By: #### 5 7021-8 ####[facility] LABORATORYCLIA [id number] [place] [address] [place] Neutrophils/100 WBC (Bld) 75.2 % Normal [facility] Comment on above: Order Comment: Speci men Type: BLOOD SPECIMENOrdering Facility: [facility] Address: [address] [place] [address] Performed By: #### 5 7021-8 ####[facility] LABORATORYCLIA [id number] [place] [address] [place] Nucleated RBC (Bld) [#/Vol] 10*3/uL Normal <0.01 [facility] Comment on above: Order Comment: Speci men Type: BLOOD SPECIMENOrdering Facility: [facility] Address: [address] [place] [address] Performed By: #### 5 7021-8 ####[facility] LABORATORYCLIA [id number] [place] [address] [place] Nucleated RBC/100 WBC (Bld) [Ratio] 0.0 /100 WBC Normal [facility] Comment on above: Order Comment: Speci men Type: BLOOD SPECIMENOrdering Facility: [facility] Address: [address] [place] [address] Performed By: #### 5 7021-8 ####[facility] LABORATORYCLIA [id number] [place] [address] [place] Platelet mean volume (Bld) [Entitic vol] 9.7 fL Normal 9.0-12.7 [facility] Comment on above: Order Comment: Speci men Type: BLOOD SPECIMENOrdering Facility: [facility] Address: [address] [place] [address] Performed By: #### 5 7021-8 ####[facility] LABORATORYCLIA [id number] [place] [address] [place] Platelets (Bld) [#/Vol] 174 10*3/uL Normal 150-400 [facility] Comment on above: Order Comment: Speci men Type: BLOOD SPECIMENOrdering Facility: [facility] Address: [address] [address] Performed By: #### 5 7021-8 ####[facility] LABORATORYCLIA [id number] [address] RBC (Bld) [#/Vol] 3.28 10*6/uL Low 4.20-6.00 [facility] Comment on above: Order Comment: Speci men Type: BLOOD SPECIMENOrdering Facility: [facility] Address: [address] [address] Performed By: #### 5 7021-8 ####[facility] LABORATORYCLIA [id number] [address] [facility] WBC (Bld) [#/Vol] 6.25 10*3/uL Normal 3.70-11.00 [facility] Comment on above: Order Comment: Speci men Type: BLOOD SPECIMENOrdering Facility: [facility] Address: [address] [address] Performed By: #### 5 7021-8 ####[facility] LABORATORYCLIA [id number] [address] CBC panel Auto (Bld)on 01-01 Erythrocyte distribution width (RBC) [Ratio] 14.0 % Normal 11.5-15.0 [facility] Comment on above: Order Comment: Speci men Type: BLOOD SPECIMENOrdering Facility: [facility] Address: [address] [address] Performed By: #### 5 8410-2 ####[facility] LABORATORYCLIA [id number] [address] Hematocrit (Bld) [Volume fraction] 26.8 % Low 39.0-51.0 [facility] Comment on above: Order Comment: Speci men Type: BLOOD SPECIMENOrdering Facility: [facility] Address: [address] [address] Performed By: #### 5 8410-2 ####[facility] LABORATORYCLIA [id number] [place] [address] [place] Hemoglobin (Bld) [Mass/Vol] 8.9 g/dL Low 13.0-17.0 [facility] Comment on above: Order Comment: Speci men Type: BLOOD SPECIMENOrdering Facility: [facility] Address: [address] [place] [address] Performed By: #### 5 8410-2 ####[facility] LABORATORYCLIA [id number] [address] [place] MCH (RBC) [Entitic mass] 31.7 pg Normal 26.0-34.0 [facility] Comment on above: Order Comment: Speci men Type: BLOOD SPECIMENOrdering Facility: [facility] Address: [address] [place] [address] Performed By: #### 5 8410-2 ####[facility] LABORATORYCLIA [id number] [address] [place] MCHC (RBC) [Mass/Vol] 33.2 g/dL Normal 30.5-36.0 [facility] Comment on above: Order Comment: Speci men Type: BLOOD SPECIMENOrdering Facility: [facility] Address: [address] [place] [address] Performed By: #### 5 8410-2 ####[facility] LABORATORYCLIA [id number] [address] [place] MCV (RBC) [Entitic vol] 95.4 fL Normal 80.0-100.0 [facility] Comment on above: Order Comment: Speci men Type: BLOOD SPECIMENOrdering Facility: [facility] Address: [address] [place] [address] Performed By: #### 5 8410-2 ####[facility] LABORATORYCLIA [id number] [address] [place] Nucleated RBC (Bld) [#/Vol] 10*3/uL Normal <0.01 [facility] Comment on above: Order Comment: Speci men Type: BLOOD SPECIMENOrdering Facility: [facility] Address: [address] [address] Performed By: #### 5 8410-2 ####[facility] LABORATORYCLIA [id number] [address] [place] Platelet mean volume (Bld) [Entitic vol] 9.2 fL Normal 9.0-12.7 [facility] Comment on above: Order Comment: Speci men Type: BLOOD SPECIMENOrdering Facility: [facility] Address: [address] Performed By: #### 5 8410-2 ####[facility] LABORATORYCLIA [id number] [place] [address] [place] Platelets (Bld) [#/Vol] 156 10*3/uL Normal 150-400 [facility] Comment on above: Order Comment: Speci men Type: BLOOD SPECIMENOrdering Facility: [facility] Address: [address] Performed By: #### 5 8410-2 ####[facility] LABORATORYCLIA [id number] [place] [address] [place] RBC (Bld) [#/Vol] 2.81 10*6/uL Low 4.20-6.00 [facility] Comment on above: Order Comment: Speci men Type: BLOOD SPECIMENOrdering Facility: [facility] Address: [address] Performed By: #### 5 8410-2 ####[facility] LABORATORYCLIA [id number] [place] [address] [place] WBC (Bld) [#/Vol] 6.88 10*3/uL Normal 3.70-11.00 [facility] Comment on above: Order Comment: Speci men Type: BLOOD SPECIMENOrdering Facility: [facility] Address: [address] [address] Performed By: #### 5 8410-2 ####[facility] LABORATORYCLIA [id number] [address] [id number] [place] CONSULTon 01-01-2023 CONSULT [facility] CONSULT Normal [facility] ROE DIRECTon 01-01-2023 DAGT, POLYSPECIFIC AHG Negative [facility] Comment on above: Order Comment: Speci men Type: BLOOD SPECIMENOrdering Facility: [facility] Address: [address] [place] [address] Performed By: #### T SCR, %[place], DAGT ####[facility] BLOOD BANKCLIA [id number] [address] [id number] [facility] [place] NURSING PROGon 01-01-2023 NURSING PROG [facility] OPERATIVE NOon 01-01-2023 OPERATIVE NO [facility] SURGICAL PATHOLOGYon 023 CASE REPORT [facility] Comment on above: Order Comment: Speci men Type: DEVICE SPECIMENOrdering Facility: [facility] Address: [address] [place] [address] Result Comment: Surg ical Pathology Report Case: [id number] Provider: Ramón Byrd MD Collected: 01/01/2023 09:43 AMOrdering Location: [facility] Surgery Received: 01/01/2023 12:12 PMPathologist: TIFFANY Saenzpecimen: HARDWARE, Rremoved hardware right distal femur, gross only Performed By: #### S ####[facility] LABORATORYCLIA [id number] [address] [place] CLINICAL HISTORY Normal [facility] Comment on above: Order Comment: Speci men Type: DEVICE SPECIMENOrdering Facility: [facility] Address: [address] [place], [place] [address] Result Comment: Pre- op diagnosis:Mechanical breakdown of internal fixation device of right femur, initial encounter ([facility]) [T84.114A]Periprosthetic fracture around internal prosthetic right hip joint, sequela [M97.01XS]Presence of right artificial knee joint [Z96.651]Presence of right artificial hip joint [Z96.641] Performed By: #### S ####[facility] LABORATORYCLIA [id number] [address] FINAL DIAGNOSIS Normal [facility] Comment on above: Order Comment: Speci men Type: DEVICE SPECIMENOrdering Facility: [facility] Address: [address] [place] [address] Result Comment: A. R ight distal femur hardware, removal: - Orthopedic plate and screws, gross examination only. Performed By: #### S ####[facility] LABORATORYCLIA [id number] [address] FINAL PERFORMING LAB [facility] Comment on above: Order Comment: Speci men Type: DEVICE SPECIMENOrdering Facility: [facility] Address: [address] [place] [address] Result Comment: Diag nostic interpretation performed at [facility], [address] [place] [address] CLIA# [id number] Director: Jannet Rincon M.D. Performed By: #### S ####[facility] LABORATORYCLIA [id number] [address] GROSS DESCRIPTION A. HARDWARE Normal [facility] Comment on above: Order Comment: Speci men Type: DEVICE SPECIMENOrdering Facility: [facility] Address: [address] [place] [address] Result Comment: The specimen is received fresh labeled with the patient's name designated removed hardware right distal femur and consists of a 28.0 x 1.8 x 0.6 cm allred, metallic, fractured plate and 13 allred, metallic screws ranging from 1.3 to 6.0 cm in length x 0.5 cm in diameter. Gross examination only.Gross examination performed at [facility], [address] [place] [address] CLIA#[id number] [id number] 12:49 PM Performed By: #### S ####[facility] LABORATORYCLIA [id number] [address] MICROSCOPIC DESCRIPTION Gross examination only. [facility] Comment on above: Order Comment: Speci men Type: DEVICE SPECIMENOrdering Facility: [facility] Address: [address] [place] [address] Performed By: #### S ####[facility] LABORATORYCLIA [id number] [address] [place] TYPE + SCREENon 01-01-2023 ABO O [facility] Comment on above: Order Comment: Speci men Type: BLOOD SPECIMENOrdering Facility: [facility] Address: [address] [address] Performed By: #### T SCR, %[place], DAGT ####[facility] BLOOD BANKCLIA [id number] [address] HISTORICAL AB SCR STATUS Negative [facility] Comment on above: Order Comment: Speci men Type: BLOOD SPECIMENOrdering Facility: [facility] Address: [address] [address] Performed By: #### T SCR, %[place], DAGT ####[facility] BLOOD BANKCLIA [id number] [address] Rh Nom (Bld) Negative [facility] Comment on above: Order Comment: Speci men Type: BLOOD SPECIMENOrdering Facility: [facility] Address: [address] [place] [address] Performed By: #### T SCR, %[place], DAGT ####[facility] BLOOD BANKCLIA [id number] [address] [place] TYPE AND SCREEN EXPIRATION 01/04/2023 23:59 [facility] Comment on above: Order Comment: Speci men Type: BLOOD SPECIMENOrdering Facility: [facility] Address: [address] [place] [address] Performed By: #### T SCR, %[place], DAGT ####[facility] BLOOD BANKCLIA [id number] [place] [address] [place] XR FLUOROSCOPYon 01-01-2023 XR FLUOROSCOPY Normal [facility] ANES PREOPon 12-29-2022 ANES PREOP Normal [facility] CASE MANAGEMon 05-08-2022 CASE MANAGEM Normal [facility] CASE MANAGEM Normal [facility] CBC W Auto Differential pane l (Bld)on 05-08-2022 Basophils/100 WBC (Bld) 1.0 % Normal [facility] Comment on above: Order Comment: Speci men Type: BLOOD SPECIMENOrdering Facility: [facility] Address: [address] [place] [address] Performed By: #### 5 7021-8 ####[facility] LABORATORYCLIA [id number] [place] [address] [place] Differential cell count method Nom (Bld) Manual Normal [facility] Comment on above: Order Comment: Speci men Type: BLOOD SPECIMENOrdering Facility: [facility] Address: [address] [place] [address] Performed By: #### 5 7021-8 ####[facility] LABORATORYCLIA [id number] [place] [address] [place] Eosinophils (Bld) [#/Vol] 0.75 10*3/uL High <0.46 [facility] Comment on above: Order Comment: Speci men Type: BLOOD SPECIMENOrdering Facility: [facility] Address: [address] [place] [address] Performed By: #### 5 7021-8 ####[facility] LABORATORYCLIA [id number] [place] [address] [place] Eosinophils/100 WBC (Bld) 6.0 % Normal [facility] Comment on above: Order Comment: Speci men Type: BLOOD SPECIMENOrdering Facility: [facility] Address: [address] [place] [address] Performed By: #### 5 7021-8 ####[facility] LABORATORYCLIA [id number] [place] [address] [place] Erythrocyte distribution width (RBC) [Ratio] 15.9 % High 11.5-15.0 [facility] Comment on above: Order Comment: Speci men Type: BLOOD SPECIMENOrdering Facility: [facility] Address: [address] [place] [address] Performed By: #### 5 7021-8 ####[facility] LABORATORYCLIA [id number] [place] [address] [place] Hematocrit (Bld) [Volume fraction] 28.8 % Low 39.0-51.0 [facility] Comment on above: Order Comment: Speci men Type: BLOOD SPECIMENOrdering Facility: [facility] Address: [address] [place] [address] Performed By: #### 5 7021-8 ####[facility] LABORATORYCLIA [id number] [place] [address] [place] Hemoglobin (Bld) [Mass/Vol] 9.1 g/dL Low 13.0-17.0 [facility] Comment on above: Order Comment: Speci men Type: BLOOD SPECIMENOrdering Facility: [facility] Address: [address] [place] [address] Performed By: #### 5 7021-8 ####[facility] LABORATORYCLIA [id number] [place] [address] [place] Lymphocytes (Bld) [#/Vol] 0.50 10*3/uL Low 1.00-4.00 [facility] Comment on above: Order Comment: Speci men Type: BLOOD SPECIMENOrdering Facility: [facility] Address: [address] [place], [place] [address] Performed By: #### 5 7021-8 ####[facility] LABORATORYCLIA [id number] [place] [address] [place] Lymphocytes/100 WBC (Bld) 4.0 % Normal [facility] Comment on above: Order Comment: Speci men Type: BLOOD SPECIMENOrdering Facility: [facility] Address: [address] [place], [place] [address] Performed By: #### 5 7021-8 ####[facility] LABORATORYCLIA [id number] [address] [place] MCH (RBC) [Entitic mass] 30.8 pg Normal 26.0-34.0 [facility] Comment on above: Order Comment: Speci men Type: BLOOD SPECIMENOrdering Facility: [facility] Address: [address] [place] [address] Performed By: #### 5 7021-8 ####[facility] LABORATORYCLIA [id number] [address] [place] MCHC (RBC) [Mass/Vol] 31.6 g/dL Normal 30.5-36.0 [facility] Comment on above: Order Comment: Speci men Type: BLOOD SPECIMENOrdering Facility: [facility] Address: [address] [place] [address] Performed By: #### 5 7021-8 ####[facility] LABORATORYCLIA [id number] [address] [place] MCV (RBC) [Entitic vol] 97.6 fL Normal 80.0-100.0 [facility] Comment on above: Order Comment: Speci men Type: BLOOD SPECIMENOrdering Facility: [facility] Address: [address] [place] [address] Performed By: #### 5 7021-8 ####[facility] LABORATORYCLIA [id number] [place] [address] [place] MYELO% 1.0 % Normal [facility] Comment on above: Order Comment: Speci men Type: BLOOD SPECIMENOrdering Facility: [facility] Address: [address] [place] [address] Performed By: #### 5 7021-8 ####[facility] LABORATORYIA [id number] [place] [address] [place] Neutrophils (Bld) [#/Vol] 9.93 10*3/uL High 1.45-7.50 [facility] Comment on above: Order Comment: Speci men Type: BLOOD SPECIMENOrdering Facility: [facility] Address: [address] [place] [address] Performed By: #### 5 7021-8 ####[facility] LABORATORYCLIA [id number] [place] [address] [place] Neutrophils/100 WBC (Bld) 79.0 % Normal [facility] Comment on above: Order Comment: Speci men Type: BLOOD SPECIMENOrdering Facility: [facility] Address: [address] [place] [address] Performed By: #### 5 7021-8 ####[facility] LABORATORYCLIA [id number] [place] [address] [place] Nucleated RBC/100 WBC (Bld) [Ratio] 0.0 /100 WBC Normal [facility] Comment on above: Order Comment: Speci men Type: BLOOD SPECIMENOrdering Facility: [facility] Address: [address] [place] [address] Performed By: #### 5 7021-8 ####[facility] LABORATORYCLIA [id number] [place] [address] [place] Ovalocytes LM Ql (Bld) Few Normal [facility] Comment on above: Order Comment: Speci men Type: BLOOD SPECIMENOrdering Facility: [facility] Address: [address] [place] [address] Performed By: #### 5 7021-8 ####[facility] LABORATORYCLIA [id number] [place] [address] [place] PLATELET ESTIMATE Adequate Normal [facility] Comment on above: Order Comment: Speci men Type: BLOOD SPECIMENOrdering Facility: [facility] Address: [address] [place] [address] Performed By: #### 5 7021-8 ####[facility] LABORATORYCLIA [id number] [place] [address] [place] Platelet mean volume (Bld) [Entitic vol] 9.2 fL Normal 9.0-12.7 [facility] Comment on above: Order Comment: Speci men Type: BLOOD SPECIMENOrdering Facility: [facility] Address: [address] [place], [place] [address] Performed By: #### 5 7021-8 ####[facility] LABORATORYCLIA [id number] [address] [place] Platelets (Bld) [#/Vol] 373 10*3/uL Normal 150-400 [facility] Comment on above: Order Comment: Speci men Type: BLOOD SPECIMENOrdering Facility: [facility] Address: [address] [place], [place] [address] Performed By: #### 5 7021-8 ####[facility] LABORATORYCLIA [id number] [address] [place] Polychromasia LM Ql (Bld) Slight Normal [facility] Comment on above: Order Comment: Speci men Type: BLOOD SPECIMENOrdering Facility: [facility] Address: [address] [place], [place] [address] Performed By: #### 5 7021-8 ####[facility] LABORATORYCLIA [id number] [place] [address] [facility] [place] RBC (Bld) [#/Vol] 2.95 10*6/uL Low 4.20-6.00 [facility] Comment on above: Order Comment: Speci men Type: BLOOD SPECIMENOrdering Facility: [facility] Address: [address] [place], [place] [address] Performed By: #### 5 7021-8 ####[facility] LABORATORYCLIA [id number] [address] [place] RED CELL MORPH Reviewed: see result s of individual morphologies Normal [facility] Comment on above: Order Comment: Speci men Type: BLOOD SPECIMENOrdering Facility: [facility] Address: [address] [place], [place] [address] Performed By: #### 5 7021-8 ####[facility] LABORATORYCLIA [id number] [address] [place] Target cells LM Ql (Bld) Few Normal [facility] Comment on above: Order Comment: Speci men Type: BLOOD SPECIMENOrdering Facility: [facility] Address: [address] [address] Performed By: #### 5 7021-8 ####[facility] LABORATORYCLIA [id number] [address] [place] WAM - ABS BASO 0.13 k/uL High <0.11 [facility] Comment on above: Order Comment: Speci men Type: BLOOD SPECIMENOrdering Facility: [facility] Address: [address] [address] Performed By: #### 5 7021-8 ####[facility] LABORATORYCLIA [id number] [address] [place] WAM - ABS MONO 1.13 k/uL High <0.87 [facility] Comment on above: Order Comment: Speci men Type: BLOOD SPECIMENOrdering Facility: [facility] Address: [address] [address] Performed By: #### 5 7021-8 ####[facility] LABORATORYCLIA [id number] [address] [place] WAM - MONO% 9.0 % Normal [facility] Comment on above: Order Comment: Speci men Type: BLOOD SPECIMENOrdering Facility: [facility] Address: [address] Performed By: #### 5 7021-8 ####[facility] LABORATORYCLIA [id number] [address] [place] WAM ABSOLUTE NRBC <0.01 Normal <0.01 [facility] Comment on above: Order Comment: Speci men Type: BLOOD SPECIMENOrdering Facility: [facility] Address: [address] [address] Performed By: #### 5 7021-8 ####[facility] LABORATORYCLIA [id number] [place] [address] [place] WBC (Bld) [#/Vol] 12.57 10*3/uL High 3.70-11.00 [facility] Comment on above: Order Comment: Speci men Type: BLOOD SPECIMENOrdering Facility: [facility] Address: [address] [place] [address] Performed By: #### 5 7021-8 ####[facility] LABORATORYCLIA [id number] [place] [address] [place] CNDSon 05-08-2022 CNDS Normal [facility] THERAPY NTon 05-08-2022 THERAPY NT [facility] THERAPY NT [facility] CBC W Auto Differential pane l (Bld)on 05-07-2022 Basophils (Bld) [#/Vol] 0.04 10*3/uL Normal <0.11 [facility] Comment on above: Order Comment: Speci men Type: BLOOD SPECIMENOrdering Facility: [facility] Address: [address] [place] [address] Performed By: #### 5 7021-8 ####[facility] LABORATORYCLIA [id number] [address] [place] Basophils/100 WBC (Bld) 0.3 % Normal [facility] Comment on above: Order Comment: Speci men Type: BLOOD SPECIMENOrdering Facility: [facility] Address: [address] [place] [address] Performed By: #### 5 7021-8 ####[facility] LABORATORYCLIA [id number] [place] [address] [place] Differential cell count method Nom (Bld) Auto Normal [facility] Comment on above: Order Comment: Speci men Type: BLOOD SPECIMENOrdering Facility: [facility] Address: [address] [place] [address] Performed By: #### 5 7021-8 ####[facility] LABORATORYCLIA [id number] [place] [address] [place] Eosinophils (Bld) [#/Vol] 0.22 10*3/uL Normal <0.46 [facility] Comment on above: Order Comment: Speci men Type: BLOOD SPECIMENOrdering Facility: [facility] Address: [address] [place] [address] Performed By: #### 5 7021-8 ####[facility] LABORATORYCLIA [id number] [place] [address] [place] Eosinophils/100 WBC (Bld) 1.8 % Normal [facility] Comment on above: Order Comment: Speci men Type: BLOOD SPECIMENOrdering Facility: [facility] Address: [address] [place] [address] Performed By: #### 5 7021-8 ####[facility] LABORATORYCLIA [id number] [address] [place] Erythrocyte distribution width (RBC) [Ratio] 15.7 % High 11.5-15.0 [facility] Comment on above: Order Comment: Speci men Type: BLOOD SPECIMENOrdering Facility: [facility] Address: [address] [place] [address] Performed By: #### 5 7021-8 ####[facility] LABORATORYCLIA [id number] [place] [address] [place] Hematocrit (Bld) [Volume fraction] 26.9 % Low 39.0-51.0 [facility] Comment on above: Order Comment: Speci men Type: BLOOD SPECIMENOrdering Facility: [facility] Address: [address] [place], [place] [address] Performed By: #### 5 7021-8 ####[facility] LABORATORYCLIA [id number] [place] [address] [place] Hemoglobin (Bld) [Mass/Vol] 8.8 g/dL Low 13.0-17.0 [facility] Comment on above: Order Comment: Speci men Type: BLOOD SPECIMENOrdering Facility: [facility] Address: [address] [place], [place] [address] Performed By: #### 5 7021-8 ####[facility] LABORATORYCLIA [id number] [address] [place] IMMATURE GRAN % 0.9 % Normal [facility] Comment on above: Order Comment: Speci men Type: BLOOD SPECIMENOrdering Facility: [facility] Address: [address] [place] [address] Performed By: #### 5 7021-8 ####[facility] LABORATORYCLIA [id number] [address] [place] IMMATURE GRAN ABS 0.11 k/uL High <0.10 [facility] Comment on above: Order Comment: Speci men Type: BLOOD SPECIMENOrdering Facility: [facility] Address: [address] [place] [address] Performed By: #### 5 7021-8 ####[facility] LABORATORYCLIA [id number] [place] [address] [place] Lymphocytes (Bld) [#/Vol] 1.03 10*3/uL Normal 1.00-4.00 [facility] Comment on above: Order Comment: Speci men Type: BLOOD SPECIMENOrdering Facility: [facility] Address: [address] [place] [address] Performed By: #### 5 7021-8 ####[facility] LABORATORYCLIA [id number] [address] [place] Lymphocytes/100 WBC (Bld) 8.2 % Normal [facility] Comment on above: Order Comment: Speci men Type: BLOOD SPECIMENOrdering Facility: [facility] Address: [address] [place] [address] Performed By: #### 5 7021-8 ####[facility] LABORATORYCLIA [id number] [address] [place] MCH (RBC) [Entitic mass] 31.3 pg Normal 26.0-34.0 [facility] Comment on above: Order Comment: Speci men Type: BLOOD SPECIMENOrdering Facility: [facility] Address: [address] [place], [place] [address] Performed By: #### 5 7021-8 ####[facility] LABORATORYCLIA [id number] [place] [address] [place] MCHC (RBC) [Mass/Vol] 32.7 g/dL Normal 30.5-36.0 [facility] Comment on above: Order Comment: Speci men Type: BLOOD SPECIMENOrdering Facility: [facility] Address: [address] [place], [place] [address] Performed By: #### 5 7021-8 ####[facility] LABORATORYCLIA [id number] [place] [address] [place] MCV (RBC) [Entitic vol] 95.7 fL Normal 80.0-100.0 [facility] Comment on above: Order Comment: Speci men Type: BLOOD SPECIMENOrdering Facility: [facility] Address: [address] [place] [address] Performed By: #### 5 7021-8 ####[facility] LABORATORYCLIA [id number] [place] [address] [place] Monocytes (Bld) [#/Vol] 1.65 10*3/uL High <0.87 [facility] Comment on above: Order Comment: Speci men Type: BLOOD SPECIMENOrdering Facility: [facility] Address: [address] [place] [address] Performed By: #### 5 7021-8 ####[facility] LABORATORYCLIA [id number] [place] [address] [place] Monocytes/100 WBC (Bld) 13.2 % Normal [facility] Comment on above: Order Comment: Speci men Type: BLOOD SPECIMENOrdering Facility: [facility] Address: [address] [place], [place] [address] Performed By: #### 5 7021-8 ####[facility] LABORATORYCLIA [id number] [place] [address] [place] Neutrophils (Bld) [#/Vol] 9.45 10*3/uL High 1.45-7.50 [facility] Comment on above: Order Comment: Speci men Type: BLOOD SPECIMENOrdering Facility: [facility] Address: [address] [place] [address] Performed By: #### 5 7021-8 ####[facility] LABORATORYCLIA [id number] [place] [address] [place] Neutrophils/100 WBC (Bld) 75.6 % Normal [facility] Comment on above: Order Comment: Speci men Type: BLOOD SPECIMENOrdering Facility: [facility] Address: [address] [place] [address] Performed By: #### 5 7021-8 ####[facility] LABORATORYCLIA [id number] [place] [address] [place] Nucleated RBC (Bld) [#/Vol] 10*3/uL Normal <0.01 [facility] Comment on above: Order Comment: Speci men Type: BLOOD SPECIMENOrdering Facility: [facility] Address: [address] [place], [place] [address] Performed By: #### 5 7021-8 ####[facility] LABORATORYCLIA [id number] [address] [place] Nucleated RBC/100 WBC (Bld) [Ratio] 0.0 /100 WBC Normal [facility] Comment on above: Order Comment: Speci men Type: BLOOD SPECIMENOrdering Facility: [facility] Address: [address] [place], [place] [address] Performed By: #### 5 7021-8 ####[facility] LABORATORYCLIA [id number] [place] [address] [place] Platelet mean volume (Bld) [Entitic vol] 9.2 fL Normal 9.0-12.7 [facility] Comment on above: Order Comment: Speci men Type: BLOOD SPECIMENOrdering Facility: [facility] Address: [address] [place], [place] [address] Performed By: #### 5 7021-8 ####[facility] LABORATORYCLIA [id number] [place] [id number] [facility] [place] Platelets (Bld) [#/Vol] 340 10*3/uL Normal 150-400 [facility] Comment on above: Order Comment: Speci men Type: BLOOD SPECIMENOrdering Facility: [facility] Address: [address] [place] [address] Performed By: #### 5 7021-8 ####[facility] LABORATORYCLIA [id number] [place] [address] [place] RBC (Bld) [#/Vol] 2.81 10*6/uL Low 4.20-6.00 [facility] Comment on above: Order Comment: Speci men Type: BLOOD SPECIMENOrdering Facility: [facility] Address: [address] [place] [address] Performed By: #### 5 7021-8 ####[facility] LABORATORYCLIA [id number] [address] OF [facility] WBC (Bld) [#/Vol] 12.50 10*3/uL High 3.70-11.00 [facility] Comment on above: Order Comment: Speci men Type: BLOOD SPECIMENOrdering Facility: [facility] Address: [address] [place] [address] Performed By: #### 5 7021-8 ####[facility] LABORATORYCLIA [id number] [address] [place] CONSULTon 05-07-2022 CONSULT Normal [facility] CONSULT PROGon 05-07-2022 CONSULT PROG Normal [facility] Basic metabolic 2000 panelon 05-06-2022 Anion gap [Moles/Vol] 9 mmol/L Normal 5-16 [facility] Comment on above: Order Comment: Speci men Type: BLOOD SPECIMENOrdering Facility: [facility] Address: [address] [place] [address] Performed By: #### 2 4321-2, 04332-1 ####[facility] LABORATORYCLIA [id number] [place] [address] [place] Calcium [Mass/Vol] 8.3 mg/dL Low 8.5-10.5 [facility] Comment on above: Order Comment: Speci men Type: BLOOD SPECIMENOrdering Facility: [facility] Address: [address] [place] [address] Performed By: #### 2 4321-2, ####[facility] LABORATORYCLIA [id number] [place] [address] [place] Chloride [Moles/Vol] 96 mmol/L Low 98-107 [facility] Comment on above: Order Comment: Speci men Type: BLOOD SPECIMENOrdering Facility: [facility] Address: [address] [place] [address] Performed By: #### 2 43212, ####[facility] LABORATORYCLIA [id number] [place] [address] [place] CO2 [Moles/Vol] 27 mmol/L Normal 21-32 [facility] Comment on above: Order Comment: Speci men Type: BLOOD SPECIMENOrdering Facility: [facility] Address: [address] [place] [address] Performed By: #### 2 43212, ####[facility] LABORATORYCLIA [id number] [place] [address] [place] Creatinine [Mass/Vol] 6.40 mg/dL High 0.50-1.40 [facility] Comment on above: Order Comment: Speci men Type: BLOOD SPECIMENOrdering Facility: [facility] Address: [address] [place] [address] Result Comment: Macrina ents receiving either N-Acetylcysteine (NAC) or Metamizole prior to venipuncture, may have falsely depressed results. Performed By: #### 2 432-2, ####[facility] LABORATORYCLIA [id number] [place] [id number] [place] ESTIMATED GLOMERULAR FILTRATION RATE 9 mL/min/1.73m??? Low >=60 [facility] Comment on above: Order Comment: Kelsi huff Type: BLOOD SPECIMENOrdering Facility: [facility] Address: [address] [place], [place] [address] Result Comment: Caryl mated Glomerular Filtration Rate (eGFR) is calculated using the 2020 CKD-EPI creatinine equation. This equation utilizes serum creatinine, sex, and age as parameters. The creatinine assay has traceable calibration to isotope dilution-mass spectrometry. Refer to KDIGO guidelines for clinical interpretation. In patients with unstable renal function, e.g. those with acute kidney injury, the eGFR may not accurately reflect actual GFR. Performed By: #### 2 4321-, ####[facility] LABORATORYCLIA [id number] [place] [id number] [place] Glucose [Mass/Vol] 129 mg/dL High 70-100 [facility] Comment on above: Order Comment: Kelsi huff Type: BLOOD SPECIMENOrdering Facility: [facility] Address: [address] [place], [place] [address] Result Comment: The [place] [employer] (ADA) provides guidance for cutoff values for fasting glucose and random glucose. The ADA defines fasting as no caloric intake for at least 8 hours. Fasting plasma glucose results between 100 to 125 mg/dL indicate increased risk for diabetes (prediabetes).Fasting plasma glucose results greater than or equal to 126 mg/dL meet the criteria for diagnosis of diabetes. In the absence of unequivocal hyperglycemia, results should be confirmed by repeat testing. In a patient with classic symptoms of hyperglycemia or hyperglycemic crisis, random plasma glucose results greater than or equal to 200 mg/dL meet the criteria for diagnosis of diabetes.Reference: Standards of Medical Care in Diabetes 2016, [place] [employer]. Diabetes Care. 2016.39(Suppl 1).Results may be falsely elevated after the administration of Sulfapyridine.Results may be falsely depressed after the administration of Sulfasalazine. Performed By: #### 2 4321-2, ####[facility] LABORATORYCLIA [id number] [place] [id number] [place] Potassium [Moles/Vol] 3.8 mmol/L Normal 3.5-5.1 [facility] Comment on above: Order Comment: Speci men Type: BLOOD SPECIMENOrdering Facility: [facility] Address: [address] [place] [address] Result Comment: Slig ht Hemolysis, Result may be affected. Performed By: #### 2 4321-2, ####[facility] LABORATORYCLIA [id number] [place] [address] [place] Sodium [Moles/Vol] 132 mmol/L Low 136-145 [facility] Comment on above: Order Comment: Speci men Type: BLOOD SPECIMENOrdering Facility: [facility] Address: [address] [place] [address] Performed By: #### 2 4321-2, 89413-3 ####[facility] LABORATORYCLIA [id number] [place] [address] [place] Urea nitrogen [Mass/Vol] 54 mg/dL High 7-26 [facility] Comment on above: Order Comment: Speci men Type: BLOOD SPECIMENOrdering Facility: [facility] Address: [address] [place] [address] Performed By: #### 2 4321-2, ####[facility] LABORATORYCLIA [id number] [place] [address] [place] CBC W Auto Differential pane l (Bld)on 05-06-2022 Basophils (Bld) [#/Vol] 0.03 10*3/uL Normal <0.11 [facility] Comment on above: Order Comment: Speci men Type: BLOOD SPECIMENOrdering Facility: [facility] Address: [address] [place] [address] Performed By: #### 5 7021-8 ####[facility] LABORATORYCLIA [id number] [address] [place] Basophils/100 WBC (Bld) 0.2 % Normal [facility] Comment on above: Order Comment: Speci men Type: BLOOD SPECIMENOrdering Facility: [facility] Address: [address] [place] [address] Performed By: #### 5 7021-8 ####[facility] LABORATORYCLIA [id number] [address] [place] Differential cell count method Nom (Bld) Auto Normal [facility] Comment on above: Order Comment: Speci men Type: BLOOD SPECIMENOrdering Facility: [facility] Address: [address] [place] [address] Performed By: #### 5 7021-8 ####[facility] LABORATORYCLIA [id number] [place] [address] [place] Eosinophils (Bld) [#/Vol] 0.32 10*3/uL Normal <0.46 [facility] Comment on above: Order Comment: Speci men Type: BLOOD SPECIMENOrdering Facility: [facility] Address: [address] [place] [address] Performed By: #### 5 7021-8 ####[facility] LABORATORYCLIA [id number] [address] [place] Eosinophils/100 WBC (Bld) 1.9 % Normal [facility] Comment on above: Order Comment: Speci men Type: BLOOD SPECIMENOrdering Facility: [facility] Address: [address] [place] [address] Performed By: #### 5 7021-8 ####[facility] LABORATORYCLIA [id number] [address] [place] Erythrocyte distribution width (RBC) [Ratio] 15.7 % High 11.5-15.0 [facility] Comment on above: Order Comment: Speci men Type: BLOOD SPECIMENOrdering Facility: [facility] Address: [address] [place] [address] Performed By: #### 5 7021-8 ####[facility] LABORATORYCLIA [id number] [place] [address] [place] Hematocrit (Bld) [Volume fraction] 27.9 % Low 39.0-51.0 [facility] Comment on above: Order Comment: Speci men Type: BLOOD SPECIMENOrdering Facility: [facility] Address: [address] [place] [address] Performed By: #### 5 7021-8 ####[facility] LABORATORYCLIA [id number] [address] [place] Hemoglobin (Bld) [Mass/Vol] 9.0 g/dL Low 13.0-17.0 [facility] Comment on above: Order Comment: Speci men Type: BLOOD SPECIMENOrdering Facility: [facility] Address: [address] [place] [address] Performed By: #### 5 7021-8 ####[facility] LABORATORYCLIA [id number] [place] [address] [place] IMMATURE GRAN % 1.0 % Normal [facility] Comment on above: Order Comment: Speci men Type: BLOOD SPECIMENOrdering Facility: [facility] Address: [address] [place] [address] Performed By: #### 5 7021-8 ####[facility] LABORATORYCLIA [id number] [place] [address] [place] IMMATURE GRAN ABS 0.17 k/uL High <0.10 [facility] Comment on above: Order Comment: Speci men Type: BLOOD SPECIMENOrdering Facility: [facility] Address: [address] [place] [address] Performed By: #### 5 7021-8 ####[facility] LABORATORYCLIA [id number] [address] [place] Lymphocytes (Bld) [#/Vol] 1.06 10*3/uL Normal 1.00-4.00 [facility] Comment on above: Order Comment: Speci men Type: BLOOD SPECIMENOrdering Facility: [facility] Address: [address] [place] [address] Performed By: #### 5 7021-8 ####[facility] LABORATORYCLIA [id number] [place] [address] [place] Lymphocytes/100 WBC (Bld) 6.2 % Normal [facility] Comment on above: Order Comment: Speci men Type: BLOOD SPECIMENOrdering Facility: [facility] Address: [address] [place] [address] Performed By: #### 5 7021-8 ####[facility] LABORATORYCLIA [id number] [place] [address] [place] MCH (RBC) [Entitic mass] 31.0 pg Normal 26.0-34.0 [facility] Comment on above: Order Comment: Speci men Type: BLOOD SPECIMENOrdering Facility: [facility] Address: [address] [place] [address] Performed By: #### 5 7021-8 ####[facility] LABORATORYCLIA [id number] [place] [address] [place] MCHC (RBC) [Mass/Vol] 32.3 g/dL Normal 30.5-36.0 [facility] Comment on above: Order Comment: Speci men Type: BLOOD SPECIMENOrdering Facility: [facility] Address: [address] [place] [address] Performed By: #### 5 7021-8 ####[facility] LABORATORYCLIA [id number] [place] [address] [place] MCV (RBC) [Entitic vol] 96.2 fL Normal 80.0-100.0 [facility] Comment on above: Order Comment: Speci men Type: BLOOD SPECIMENOrdering Facility: [facility] Address: [address] [place] [address] Performed By: #### 5 7021-8 ####[facility] LABORATORYCLIA [id number] [place] [address] [place] Monocytes (Bld) [#/Vol] 1.62 10*3/uL High <0.87 [facility] Comment on above: Order Comment: Speci men Type: BLOOD SPECIMENOrdering Facility: [facility] Address: [address] Performed By: #### 5 7021-8 ####[facility] LABORATORYCLIA [id number] [place] [address] [place] Monocytes/100 WBC (Bld) 9.4 % Normal [facility] Comment on above: Order Comment: Speci men Type: BLOOD SPECIMENOrdering Facility: [facility] Address: [address] [place], [place] [address] Performed By: #### 5 7021-8 ####[facility] LABORATORYCLIA [id number] [place] [address] [place] Neutrophils (Bld) [#/Vol] 13.96 10*3/uL High 1.45-7.50 [facility] Comment on above: Order Comment: Speci men Type: BLOOD SPECIMENOrdering Facility: [facility] Address: [address] [place] [address] Performed By: #### 5 7021-8 ####[facility] LABORATORYCLIA [id number] [place] [address] [place] Neutrophils/100 WBC (Bld) 81.3 % Normal [facility] Comment on above: Order Comment: Speci men Type: BLOOD SPECIMENOrdering Facility: [facility] Address: [address] [place], [place] [address] Performed By: #### 5 7021-8 ####[facility] LABORATORYCLIA [id number] [place] [address] [place] Nucleated RBC (Bld) [#/Vol] 10*3/uL Normal <0.01 [facility] Comment on above: Order Comment: Speci men Type: BLOOD SPECIMENOrdering Facility: [facility] Address: [address] [place], [place] [address] Performed By: #### 5 7021-8 ####[facility] LABORATORYCLIA [id number] [place] [address] [place] Nucleated RBC/100 WBC (Bld) [Ratio] 0.0 /100 WBC Normal [facility] Comment on above: Order Comment: Speci men Type: BLOOD SPECIMENOrdering Facility: [facility] Address: [address] [place], [place] [address] Performed By: #### 5 7021-8 ####[facility] LABORATORYCLIA [id number] [place] [address] [place] [facility] [place] Platelet mean volume (Bld) [Entitic vol] 9.1 fL Normal 9.0-12.7 [facility] Comment on above: Order Comment: Speci men Type: BLOOD SPECIMENOrdering Facility: [facility] Address: [address] [place], [place] [address] Performed By: #### 5 7021-8 ####[facility] LABORATORYCLIA [id number] [place] [address] [place] Platelets (Bld) [#/Vol] 325 10*3/uL Normal 150-400 [facility] Comment on above: Order Comment: Speci men Type: BLOOD SPECIMENOrdering Facility: [facility] Address: [address] [place], [place] [address] Performed By: #### 5 7021-8 ####[facility] LABORATORYCLIA [id number] [place] [address] [place] RBC (Bld) [#/Vol] 2.90 10*6/uL Low 4.20-6.00 [facility] Comment on above: Order Comment: Speci men Type: BLOOD SPECIMENOrdering Facility: [facility] Address: [address] [place], [place] [address] Performed By: #### 5 7021-8 ####[facility] LABORATORYCLIA [id number] [place] [address] [place] WBC (Bld) [#/Vol] 17.16 10*3/uL High 3.70-11.00 [facility] Comment on above: Order Comment: Speci men Type: BLOOD SPECIMENOrdering Facility: [facility] Address: [address] [place], [place] [address] Performed By: #### 5 7021-8 ####[facility] LABORATORYCLIA [id number] [place] [address] [place] CONSULT PROGon 05-06-2022 CONSULT PROG Normal [facility] Magnesium SerPl-mCncon 05-06 Magnesium [Mass/Vol] 1.9 mg/dL Normal 1.6-2.6 [facility] Comment on above: Order Comment: Speci men Type: BLOOD SPECIMENOrdering Facility: [facility] Address: [address] [place] [address] Performed By: #### 2 4321-2, 12340-8 ####[facility] LABORATORYCLIA [id number] [address] [place] NURSING PROGon 05-06-2022 NURSING PRO Normal [facility] SARS-CoV-2 RNA Resp Ql AMADOU+p robeon 05-06-2022 SARS-CoV-2 (COVID-19) RNA AMADOU+probe Ql (Resp) SARS-CoV-2 (Agent of COVID-19) Not Detected by RT-PCR or equivalent method. Normal Not Detected [facility] Comment on above: Order Comment: Speci men Type: SWAB OF INTERNAL NOSEOrdering Facility: [facility] Address: [address] [place] [address] Result Comment: This test has been authorized by FDA under an Emergency Use Authorization (EUA). Performed By: #### 9 4500-6 ####[facility] LABORATORYCLIA [id number] [address] [place] ALLIED HEALTHon 05-05-2022 ALLIED HEALTH Normal [facility] Basic metabolic 2000 panelon 05-05-2022 Anion gap [Moles/Vol] 10 mmol/L Normal 5-16 [facility] Comment on above: Order Comment: Speci men Type: BLOOD SPECIMENOrdering Facility: [facility] Address: [address] [place] [address] Performed By: #### 2 4321-2, 62571-2, 50143-2 ####[facility] LABORATORYCLIA [id number] [place] [address] [place] Calcium [Mass/Vol] 8.6 mg/dL Normal 8.5-10.5 [facility] Comment on above: Order Comment: Speci men Type: BLOOD SPECIMENOrdering Facility: [facility] Address: [address] [place] [address] Performed By: #### 2 4321-2, 32673-0, 34100-3 ####[facility] LABORATORYCLIA [id number] [place] [address] [place] Chloride [Moles/Vol] 97 mmol/L Low 98-107 [facility] Comment on above: Order Comment: Speci men Type: BLOOD SPECIMENOrdering Facility: [facility] Address: [address] [place] [address] Performed By: #### 2 4321-2, 90547-2, 61378-2 ####[facility] LABORATORYCLIA [id number] [place] [address] [place] CO2 [Moles/Vol] 29 mmol/L Normal 21-32 [facility] Comment on above: Order Comment: Speci men Type: BLOOD SPECIMENOrdering Facility: [facility] Address: [address] [place] [address] Performed By: #### 2 4321-2, 34170-9, 25319-1 ####[facility] LABORATORYCLIA [id number] [place] [address] [place] Creatinine [Mass/Vol] 5.02 mg/dL High 0.50-1.40 [facility] Comment on above: Order Comment: Speci men Type: BLOOD SPECIMENOrdering Facility: [facility] Address: [address] [place] [address] Result Comment: Macrina ents receiving either N-Acetylcysteine (NAC) or Metamizole prior to venipuncture, may have falsely depressed results. Performed By: #### 2 4321-2, 48502-2, 95502-2 ####[facility] LABORATORYCLIA [id number] [address] [place] ESTIMATED GLOMERULAR FILTRATION RATE 12 mL/min/1.73m??? Low >=60 [facility] Comment on above: Order Comment: Kelsi huff Type: BLOOD SPECIMENOrdering Facility: [facility] Address: [address] [place], [place] [address] Result Comment: Caryl mated Glomerular Filtration Rate (eGFR) is calculated using the 2020 CKD-EPI creatinine equation. This equation utilizes serum creatinine, sex, and age as parameters. The creatinine assay has traceable calibration to isotope dilution-mass spectrometry. Refer to KDIGO guidelines for clinical interpretation. In patients with unstable renal function, e.g. those with acute kidney injury, the eGFR may not accurately reflect actual GFR. Performed By: #### 2 4321-2, 43552-8, 39897-8 ####[facility] LABORATORYCLIA [id number] [address] [place] Glucose [Mass/Vol] 115 mg/dL High 70-100 [facility] Comment on above: Order Comment: Kelsi huff Type: BLOOD SPECIMENOrdering Facility: [facility] Address: [address] [place] [address] Result Comment: The [place] [employer] (ADA) provides guidance for cutoff values for fasting glucose and random glucose. The ADA defines fasting as no caloric intake for at least 8 hours. Fasting plasma glucose results between 100 to 125 mg/dL indicate increased risk for diabetes (prediabetes).Fasting plasma glucose results greater than or equal to 126 mg/dL meet the criteria for diagnosis of diabetes. In the absence of unequivocal hyperglycemia, results should be confirmed by repeat testing. In a patient with classic symptoms of hyperglycemia or hyperglycemic crisis, random plasma glucose results greater than or equal to 200 mg/dL meet the criteria for diagnosis of diabetes.Reference: Standards of Medical Care in Diabetes 2016, [place] [employer]. Diabetes Care. 2016.39(Suppl 1).Results may be falsely elevated after the administration of Sulfapyridine.Results may be falsely depressed after the administration of Sulfasalazine. Performed By: #### 2 4321-2, 58258-8, 06226-4 ####[facility] LABORATORYCLIA [id number] [place] [address] [place] Potassium [Moles/Vol] 4.1 mmol/L Normal 3.5-5.1 [facility] Comment on above: Order Comment: Speci men Type: BLOOD SPECIMENOrdering Facility: [facility] Address: [address] [place] [address] Performed By: #### 2 4321-2, 38376-1, 49119-1 ####[facility] LABORATORYCLIA [id number] [place] [id number] [place] Sodium [Moles/Vol] 136 mmol/L Normal 136-145 [facility] Comment on above: Order Comment: Speci men Type: BLOOD SPECIMENOrdering Facility: [facility] Address: [address] [place] [address] Performed By: #### 2 4321-2, 86576-2, 55559-2 ####[facility] LABORATORYCLIA [id number] [place] [id number] [place] Urea nitrogen [Mass/Vol] 43 mg/dL High 7-26 [facility] Comment on above: Order Comment: Speci men Type: BLOOD SPECIMENOrdering Facility: [facility] Address: [address] [place] [address] Performed By: #### 2 4321-2, 71940-2, 00689-0 ####[facility] LABORATORYCLIA [id number] [place] [id number] [place] CASE MANAGEMon 05-05-2022 CASE MANAGEM Normal [facility] CBC W Auto Differential pane l (Bld)on 05-05-2022 Band form neutrophils/100 WBC (Bld) 1.0 % [facility] Comment on above: Order Comment: Speci men Type: BLOOD SPECIMENOrdering Facility: [facility] Address: [address] [place] [address] Performed By: #### 5 7021-8 ####[facility] LABORATORYCLIA [id number] [place] [id number] [place] Basophils/100 WBC (Bld) 1.0 % Normal [facility] Comment on above: Order Comment: Speci men Type: BLOOD SPECIMENOrdering Facility: [facility] Address: [address] [place] [address] Performed By: #### 5 7021-8 ####[facility] LABORATORYCLIA [id number] [address] [place] BLAST% 0.0 % Normal <=0.0 [facility] Comment on above: Order Comment: Speci men Type: BLOOD SPECIMENOrdering Facility: [facility] Address: [address] [place] [address] Performed By: #### 5 7021-8 ####[facility] LABORATORYCLIA [id number] [address] Differential cell count method Nom (Bld) Manual Normal [facility] Comment on above: Order Comment: Speci men Type: BLOOD SPECIMENOrdering Facility: [facility] Address: [address] [place] [address] Performed By: #### 5 7021-8 ####[facility] LABORATORYCLIA [id number] [address] [place] Eosinophils (Bld) [#/Vol] 0.00 10*3/uL Normal <0.46 [facility] Comment on above: Order Comment: Speci men Type: BLOOD SPECIMENOrdering Facility: [facility] Address: [address] [place] [address] Performed By: #### 5 7021-8 ####[facility] LABORATORYCLIA [id number] [address] Eosinophils/100 WBC (Bld) 0.0 % Normal [facility] Comment on above: Order Comment: Speci men Type: BLOOD SPECIMENOrdering Facility: [facility] Address: [address] [place] [address] Performed By: #### 5 7021-8 ####[facility] LABORATORYCLIA [id number] [address] [place] Erythrocyte distribution width (RBC) [Ratio] 15.9 % High 11.5-15.0 [facility] Comment on above: Order Comment: Speci men Type: BLOOD SPECIMENOrdering Facility: [facility] Address: [address] [place] [address] Performed By: #### 5 7021-8 ####[facility] LABORATORYCLIA [id number] [place] [address] [place] Hematocrit (Bld) [Volume fraction] 27.8 % Low 39.0-51.0 [facility] Comment on above: Order Comment: Speci men Type: BLOOD SPECIMENOrdering Facility: [facility] Address: [address] [place] [address] Performed By: #### 5 7021-8 ####[facility] LABORATORYCLIA [id number] [place] [address] [place] Hemoglobin (Bld) [Mass/Vol] 8.9 g/dL Low 13.0-17.0 [facility] Comment on above: Order Comment: Speci men Type: BLOOD SPECIMENOrdering Facility: [facility] Address: [address] [place] [address] Performed By: #### 5 7021-8 ####[facility] LABORATORYCLIA [id number] [place] [address] [place] Lymphocytes (Bld) [#/Vol] 1.71 10*3/uL Normal 1.00-4.00 [facility] Comment on above: Order Comment: Speci men Type: BLOOD SPECIMENOrdering Facility: [facility] Address: [address] [place], [place] [address] Performed By: #### 5 7021-8 ####[facility] LABORATORYCLIA [id number] [address] [place] Lymphocytes/100 WBC (Bld) 7.0 % Normal [facility] Comment on above: Order Comment: Speci men Type: BLOOD SPECIMENOrdering Facility: [facility] Address: [address] [place], [place] [address] Performed By: #### 5 7021-8 ####[facility] LABORATORYCLIA [id number] [address] Lymphocytes/100 WBC (Bld) 0.0 % Normal [facility] Comment on above: Order Comment: Speci men Type: BLOOD SPECIMENOrdering Facility: [facility] Address: [address] [place] [address] Performed By: #### 5 7021-8 ####[facility] LABORATORYCLIA [id number] [address] LYMPHOMA CELL 0.0 % Normal [facility] Comment on above: Order Comment: Speci men Type: BLOOD SPECIMENOrdering Facility: [facility] Address: [address] [place] [address] Performed By: #### 5 7021-8 ####[facility] LABORATORYCLIA [id number] [address] MCH (RBC) [Entitic mass] 31.1 pg Normal 26.0-34.0 [facility] Comment on above: Order Comment: Speci men Type: BLOOD SPECIMENOrdering Facility: [facility] Address: [address] [place] [address] Performed By: #### 5 7021-8 ####[facility] LABORATORYCLIA [id number] [address] MCHC (RBC) [Mass/Vol] 32.0 g/dL Normal 30.5-36.0 [facility] Comment on above: Order Comment: Speci men Type: BLOOD SPECIMENOrdering Facility: [facility] Address: [address] [place] [address] Performed By: #### 5 7021-8 ####[facility] LABORATORYCLIA [id number] [address] OF [facility] MCV (RBC) [Entitic vol] 97.2 fL Normal 80.0-100.0 [facility] Comment on above: Order Comment: Speci men Type: BLOOD SPECIMENOrdering Facility: [facility] Address: [address] [place] [address] Performed By: #### 5 7021-8 ####[facility] LABORATORYCLIA [id number] [address] [place] MEGAKARYOCYTIC FRAGMENTS 0.0 /100 WBC Normal [facility] Comment on above: Order Comment: Speci men Type: BLOOD SPECIMENOrdering Facility: [facility] Address: [address] [place] [address] Performed By: #### 5 7021-8 ####[facility] LABORATORYCLIA [id number] [address] [place] Metamyelocytes/100 WBC (Bld) 0.0 % Normal [facility] Comment on above: Order Comment: Speci men Type: BLOOD SPECIMENOrdering Facility: [facility] Address: [address] [place] [address] Performed By: #### 5 7021-8 ####[facility] LABORATORYCLIA [id number] [place] [address] [place] MYELO% 0.0 % Normal [facility] Comment on above: Order Comment: Speci men Type: BLOOD SPECIMENOrdering Facility: [facility] Address: [address] [place] [address] Performed By: #### 5 7021-8 ####[facility] LABORATORYCLIA [id number] [place] [address] [place] Neutrophils (Bld) [#/Vol] 21.45 10*3/uL High 1.45-7.50 [facility] Comment on above: Order Comment: Speci men Type: BLOOD SPECIMENOrdering Facility: [facility] Address: [address] [place] [address] Performed By: #### 5 7021-8 ####[facility] LABORATORYCLIA [id number] [place] [address] [place] Neutrophils/100 WBC (Bld) 87.0 % Normal [facility] Comment on above: Order Comment: Speci men Type: BLOOD SPECIMENOrdering Facility: [facility] Address: [address] [place] [address] Performed By: #### 5 7021-8 ####[facility] LABORATORYCLIA [id number] [address] [place] Nucleated RBC/100 WBC (Bld) [Ratio] 0.0 /100 WBC Normal [facility] Comment on above: Order Comment: Speci men Type: BLOOD SPECIMENOrdering Facility: [facility] Address: [address] [place] [address] Performed By: #### 5 7021-8 ####[facility] LABORATORYCLIA [id number] [address] OTHER CELLS 0.0 % Normal [facility] Comment on above: Order Comment: Speci men Type: BLOOD SPECIMENOrdering Facility: [facility] Address: [address] [place] [address] Performed By: #### 5 7021-8 ####[facility] LABORATORYCLIA [id number] [place] [address] [place] Ovalocytes LM Ql (Bld) Few Normal [facility] Comment on above: Order Comment: Speci men Type: BLOOD SPECIMENOrdering Facility: [facility] Address: [address] [place] [address] Performed By: #### 5 7021-8 ####[facility] LABORATORYCLIA [id number] [address] [place] PLASMA CELLS 0.0 % Normal [facility] Comment on above: Order Comment: Speci men Type: BLOOD SPECIMENOrdering Facility: [facility] Address: [address] [place] [place] [address] Performed By: #### 5 7021-8 ####[facility] LABORATORYCLIA [id number] [place] [address] [place] PLATELET ESTIMATE Adequate Normal [facility] Comment on above: Order Comment: Speci men Type: BLOOD SPECIMENOrdering Facility: [facility] Address: [address] [place] [address] Performed By: #### 5 7021-8 ####[facility] LABORATORYCLIA [id number] [address] [place] Platelet mean volume (Bld) [Entitic vol] 9.1 fL Normal 9.0-12.7 [facility] Comment on above: Order Comment: Speci men Type: BLOOD SPECIMENOrdering Facility: [facility] Address: [address] [place] [address] Performed By: #### 5 7021-8 ####[facility] LABORATORYCLIA [id number] [address] [place] Platelets (Bld) [#/Vol] 301 10*3/uL Normal 150-400 [facility] Comment on above: Order Comment: Speci men Type: BLOOD SPECIMENOrdering Facility: [facility] Address: [address] [place] [address] Performed By: #### 5 7021-8 ####[facility] LABORATORYCLIA [id number] [place] [address] [facility] [place] Polychromasia LM Ql (Bld) Slight Normal [facility] Comment on above: Order Comment: Speci men Type: BLOOD SPECIMENOrdering Facility: [facility] Address: [address] [place] [address] Performed By: #### 5 7021-8 ####[facility] LABORATORYCLIA [id number] [place] [address] [place] PROMYL% 0.0 % Normal [facility] Comment on above: Order Comment: Speci men Type: BLOOD SPECIMENOrdering Facility: [facility] Address: [address] [place] [address] Performed By: #### 5 7021-8 ####[facility] LABORATORYCLIA [id number] [place] [address] [place] RBC (Bld) [#/Vol] 2.86 10*6/uL Low 4.20-6.00 [facility] Comment on above: Order Comment: Speci men Type: BLOOD SPECIMENOrdering Facility: [facility] Address: [address] [place] [address] Performed By: #### 5 7021-8 ####[facility] LABORATORYCLIA [id number] [address] OF [facility] [place] Reviewed: see result s of individual morphologies Normal [facility] Comment on above: Order Comment: Speci men Type: BLOOD SPECIMENOrdering Facility: [facility] Address: [address] [place] [address] Performed By: #### 5 7021-8 ####[facility] LABORATORYCLIA [id number] [address] [place] Variant lymphocytes/100 WBC (Bld) 0.0 % Normal [facility] Comment on above: Order Comment: Speci men Type: BLOOD SPECIMENOrdering Facility: [facility] Address: [address] [place], [place] [address] Performed By: #### 5 7021-8 ####[facility] LABORATORYCLIA [id number] [address] [place] WAM - ABS BASO 0.24 k/uL High <0.11 [facility] Comment on above: Order Comment: Speci men Type: BLOOD SPECIMENOrdering Facility: [facility] Address: [address] [place], [place] [address] Performed By: #### 5 7021-8 ####[facility] LABORATORYCLIA [id number] [address] [place] WAM - ABS MONO 0.98 k/uL High <0.87 [facility] Comment on above: Order Comment: Speci men Type: BLOOD SPECIMENOrdering Facility: [facility] Address: [address] [place] [address] Performed By: #### 5 7021-8 ####[facility] LABORATORYCLIA [id number] [place] [address] [place] WAM - MONO% 4.0 % Normal [facility] Comment on above: Order Comment: Speci men Type: BLOOD SPECIMENOrdering Facility: [facility] Address: [address] [place] [address] Performed By: #### 5 7021-8 ####[facility] LABORATORYCLIA [id number] [place] [address] [place] WAM ABSOLUTE NRBC <0.01 Normal <0.01 [facility] Comment on above: Order Comment: Speci men Type: BLOOD SPECIMENOrdering Facility: [facility] Address: [address] [place] [address] Performed By: #### 5 7021-8 ####[facility] LABORATORYCLIA [id number] [place] [address] [place] WBC (Bld) [#/Vol] 24.38 10*3/uL High 3.70-11.00 [facility] Comment on above: Order Comment: Speci men Type: BLOOD SPECIMENOrdering Facility: [facility] Address: [address] [place] [address] Performed By: #### 5 7021-8 ####[facility] LABORATORYCLIA [id number] [place] [address] [place] Magnesium SerPl-mCncon 05-05 Magnesium [Mass/Vol] 1.9 mg/dL Normal 1.6-2.6 [facility] Comment on above: Order Comment: Speci men Type: BLOOD SPECIMENOrdering Facility: [facility] Address: [address] [place] [address] Performed By: #### 2 4321-2, 89103-8, 30027-3 ####[facility] LABORATORYCLIA [id number] [place] [address] [place] Procalcitonin SerPl-mCncon 0 05-05-2022 Procalcitonin [Mass/Vol] 3.75 ng/mL High 0.00-0.50 [facility] Comment on above: Order Comment: Samanthai daria Type: BLOOD SPECIMENOrdering Facility: [facility] Address: [address] [place] [address] Result Comment: PCT Concentration InterpretationPCT <=0.1 ng/mL:Normal range for healthy adultsPCT >0.1 ng/mL and <0.5 ng/mL:Systemic infection (sepsis) is possible and may require antibiotic treatment, but other conditions are known to elevate PCT as well.PCT >0.5 ng/mL:Should be considered at risk for developing severe sepsis or septic shock.PCT >2.0 ng/mL:Important systemic inflammatory response. Almost exclusively indicates episode of severe bacterial sepsis or septic shock. Performed By: #### 2 4321-2, 16007-6, 16619-6 ####[facility] LABORATORYCLIA [id number] [address] [place] THERAPY NTon 05-05-2022 THERAPY NT Normal [facility] Bacteria Bld Culton 05-04-20 22 Bacteria identified Cx Nom (Bld) No growth 5 days Normal [facility] Comment on above: Order Comment: Kelsi huff Type: BLOOD SPECIMENOrdering Facility: [facility] Address: [address] [place] [address] Performed By: #### 6 00-7 ####[facility] LABORATORYCLIA [id number] [address] [place] Bacteria identified Cx Nom (Bld) No growth 5 days Normal [facility] Comment on above: Order Comment: Samanthai daria Type: BLOOD SPECIMENOrdering Facility: [facility] Address: [address] [place] [address] Performed By: #### 6 00-7 ####[facility] LABORATORYIA [id number] [address] [place] C diff Tox gens Stl Ql AMADOU+p robeon 05-04-2022 C. difficile toxin genes AMADOU+probe Ql (Stl) Positive Abnormal Negative for C. difficile toxin by PCR [facility] Comment on above: Order Comment: Samanthai men Type: STOOL SPECIMENOrdering Facility: [facility] Address: [address] [address] Result Comment: A po sitive PCR result may indicate C.difficile infection or colonization. The positive predictive value of this test for C.difficile infection is highest for patients with clinically significant diarrhea (>=3 unformed stools in 24h) who do not have an alternative explanation (e.g., recent receipt of laxatives).Toxin EIA testing will also be performed as recommended by [employer] clinical practice guidelines for institutions without pre-agreed criteria for specimen submission. Performed By: #### 5 4067-4, CDEIA ####[facility] LABORATORYCLIA [id number] [address] C. DIFFICILE TOXIN BY EIAon 05-04-2022 C. difficile toxin A+B IA Ql (Stl) Detected Abnormal Negative for C. difficile toxin [facility] Comment on above: Order Comment: Speci men Type: STOOL SPECIMENOrdering Facility: [facility] Address: [address] [place] [address] Performed By: #### 5 4067-4, CDEIA ####[facility] LABORATORYCLIA [id number] [address] [place] CASE MANAGEMon 05-04-2022 CASE MANAGEM Normal [facility] CASE MANAGEM Normal [facility] CASE MANAGEM Normal [facility] CBC W Auto Differential pane l (Bld)on 05-04-2022 Basophils/100 WBC (Bld) 0.0 % [facility] Comment on above: Order Comment: Speci men Type: BLOOD SPECIMENOrdering Facility: [facility] Address: [address] [place] [address] Performed By: #### 5 7021-8 ####[facility] LABORATORYCLIA [id number] [address] [place] Differential cell count method Nom (Bld) Manual Normal [facility] Comment on above: Order Comment: Speci men Type: BLOOD SPECIMENOrdering Facility: [facility] Address: [address] [place] [address] Performed By: #### 5 7021-8 ####[facility] LABORATORYCLIA [id number] [place] [address] [place] Eosinophils (Bld) [#/Vol] 0.00 10*3/uL Normal <0.46 [facility] Comment on above: Order Comment: Speci men Type: BLOOD SPECIMENOrdering Facility: [facility] Address: [address] [place] [address] Performed By: #### 5 7021-8 ####[facility] LABORATORYCLIA [id number] [address] [place] Eosinophils/100 WBC (Bld) 0.0 % Normal [facility] Comment on above: Order Comment: Speci men Type: BLOOD SPECIMENOrdering Facility: [facility] Address: [address] [place] [address] Performed By: #### 5 7021-8 ####[facility] LABORATORYCLIA [id number] [address] [place] Erythrocyte distribution width (RBC) [Ratio] 15.4 % High 11.5-15.0 [facility] Comment on above: Order Comment: Speci men Type: BLOOD SPECIMENOrdering Facility: [facility] Address: [address] [place] [address] Performed By: #### 5 7021-8 ####[facility] LABORATORYCLIA [id number] [address] [place] Hematocrit (Bld) [Volume fraction] 26.9 % Low 39.0-51.0 [facility] Comment on above: Order Comment: Speci men Type: BLOOD SPECIMENOrdering Facility: [facility] Address: [address] [place] [address] Performed By: #### 5 7021-8 ####[facility] LABORATORYCLIA [id number] [place] [address] [place] Hemoglobin (Bld) [Mass/Vol] 8.8 g/dL Low 13.0-17.0 [facility] Comment on above: Order Comment: Speci men Type: BLOOD SPECIMENOrdering Facility: [facility] Address: [address] [place] [address] Performed By: #### 5 7021-8 ####[facility] LABORATORYCLIA [id number] [address] [place] Lymphocytes (Bld) [#/Vol] 1.29 10*3/uL Normal 1.00-4.00 [facility] Comment on above: Order Comment: Speci men Type: BLOOD SPECIMENOrdering Facility: [facility] Address: [address] [place] [address] Performed By: #### 5 7021-8 ####[facility] LABORATORYCLIA [id number] [address] [place] Lymphocytes/100 WBC (Bld) 4.0 % Normal [facility] Comment on above: Order Comment: Speci men Type: BLOOD SPECIMENOrdering Facility: [facility] Address: [address] [place] [address] Performed By: #### 5 7021-8 ####[facility] LABORATORYCLIA [id number] [place] [address] [place] MCH (RBC) [Entitic mass] 31.1 pg Normal 26.0-34.0 [facility] Comment on above: Order Comment: Speci men Type: BLOOD SPECIMENOrdering Facility: [facility] Address: [address] [place], [place] [address] Performed By: #### 5 7021-8 ####[facility] LABORATORYCLIA [id number] [address] [place] MCHC (RBC) [Mass/Vol] 32.7 g/dL Normal 30.5-36.0 [facility] Comment on above: Order Comment: Speci men Type: BLOOD SPECIMENOrdering Facility: [facility] Address: [address] [place] [address] Performed By: #### 5 7021-8 ####[facility] LABORATORYCLIA [id number] [place] [address] [place] MCV (RBC) [Entitic vol] 95.1 fL Normal 80.0-100.0 [facility] Comment on above: Order Comment: Speci men Type: BLOOD SPECIMENOrdering Facility: [facility] Address: [address] [place] [address] Performed By: #### 5 7021-8 ####[facility] LABORATORYCLIA [id number] [place] [address] [place] Neutrophils (Bld) [#/Vol] 29.72 10*3/uL High 1.45-7.50 [facility] Comment on above: Order Comment: Speci men Type: BLOOD SPECIMENOrdering Facility: [facility] Address: [address] [place] [address] Performed By: #### 5 7021-8 ####[facility]ENTERIA [id number] [address] [place] Neutrophils/100 WBC (Bld) 92.0 % Normal [facility] Comment on above: Order Comment: Speci men Type: BLOOD SPECIMENOrdering Facility: [facility] Address: [address] [place] [address] Performed By: #### 5 7021-8 ####[facility] CENTERIA [id number] [place] [address] [place] Nucleated RBC/100 WBC (Bld) [Ratio] 0.0 /100 WBC Normal [facility] Comment on above: Order Comment: Speci men Type: BLOOD SPECIMENOrdering Facility: [facility] Address: [address] [place] [address] Performed By: #### 5 7021-8 ####[facility] LABORATORYIA [id number] [address] [place] PLATELET ESTIMATE Adequate Normal [facility] Comment on above: Order Comment: Speci men Type: BLOOD SPECIMENOrdering Facility: [facility] Address: [address] [place] [address] Performed By: #### 5 7021-8 ####[facility] LABORATORYCLIA [id number] [address] [place] Platelet mean volume (Bld) [Entitic vol] 9.0 fL Normal 9.0-12.7 [facility] Comment on above: Order Comment: Speci men Type: BLOOD SPECIMENOrdering Facility: [facility] Address: [address] [place], [place] [address] Performed By: #### 5 7021-8 ####[facility] LABORATORYCLIA [id number] [place] [address] [place] Platelets (Bld) [#/Vol] 284 10*3/uL Normal 150-400 [facility] Comment on above: Order Comment: Speci men Type: BLOOD SPECIMENOrdering Facility: [facility] Address: [address] [place], [place] [address] Performed By: #### 5 7021-8 ####[facility] LABORATORYCLIA [id number] [address] [place] RBC (Bld) [#/Vol] 2.83 10*6/uL Low 4.20-6.00 [facility] Comment on above: Order Comment: Speci men Type: BLOOD SPECIMENOrdering Facility: [facility] Address: [address] [place] [address] Performed By: #### 5 7021-8 ####[facility] LABORATORYCLIA [id number] [address] [place] Reviewed: unremarkable Normal [facility] Comment on above: Order Comment: Speci men Type: BLOOD SPECIMENOrdering Facility: [facility] Address: [address] [place], [place] [address] Performed By: #### 5 7021-8 ####[facility] LABORATORYCLIA [id number] [address] [place] WAM - ABS BASO 0.00 k/uL Normal <0.11 [facility] Comment on above: Order Comment: Speci men Type: BLOOD SPECIMENOrdering Facility: [facility] Address: [address] [place] [address] Performed By: #### 5 7021-8 ####[facility] LABORATORYCLIA [id number] [place] [address] [place] WAM - ABS MONO 1.29 k/uL High <0.87 [facility] Comment on above: Order Comment: Speci men Type: BLOOD SPECIMENOrdering Facility: [facility] Address: [address] [place] [address] Performed By: #### 5 7021-8 ####[facility] LABORATORYCLIA [id number] [place] [address] [place] WAM - MONO% 4.0 % Normal [facility] Comment on above: Order Comment: Speci men Type: BLOOD SPECIMENOrdering Facility: [facility] Address: [address] [place] [address] Performed By: #### 5 7021-8 ####[facility] LABORATORYCLIA [id number] [place] [address] [place] WAM ABSOLUTE NRBC <0.01 Normal <0.01 [facility] Comment on above: Order Comment: Speci men Type: BLOOD SPECIMENOrdering Facility: [facility] Address: [address] [place] [address] Performed By: #### 5 7021-8 ####[facility] LABORATORYCLIA [id number] [place] [address] [place] WBC (Bld) [#/Vol] 32.30 10*3/uL High 3.70-11.00 [facility] Comment on above: Order Comment: Speci men Type: BLOOD SPECIMENOrdering Facility: [facility] Address: [address] [place] [address] Performed By: #### 5 7021-8 ####[facility] LABORATORYCLIA [id number] [place] [address] [facility] [place] Gastrointestinal pathogens p everett AMADOU+probe (Stl)on 05-04-2022 ADENOVIRUS F 40/41 Not detected Normal Not Detected [facility] Comment on above: Order Comment: Speci men Type: STOOL SPECIMENOrdering Facility: [facility] Address: [address] [place] [address] Performed By: #### 7 9381-0 ####[facility] LABORATORYCLIA [id number] [place] [address] [place] ASTROVIRUS Not detected Normal Not Detected [facility] Comment on above: Order Comment: Speci men Type: STOOL SPECIMENOrdering Facility: [facility] Address: [address] [place] [address] Performed By: #### 7 9381-0 ####[facility] LABORATORYCLIA [id number] [place] [address] [place] C. cayetanensis DNA AMADOU+probe Ql (Unsp spec) Not detected Normal Not Detected [facility] Comment on above: Order Comment: Speci men Type: STOOL SPECIMENOrdering Facility: [facility] Address: [address] [place] [address] Performed By: #### 7 9381-0 ####[facility] LABORATORYCLIA [id number] [place] [address] [place] Campylobacter sp DNA.diarrheagenic AMADOU+probe Ql (Stl) Not detected Normal Not Detected [facility] Comment on above: Order Comment: Speci men Type: STOOL SPECIMENOrdering Facility: [facility] Address: [address] [place] [address] Performed By: #### 7 9381-0 ####[facility] LABORATORYCLIA [id number] [place] [address] [place] Cryptosporidium sp DNA AMADOU+probe Ql (Unsp spec) Not detected Normal Not detected [facility] Comment on above: Order Comment: Speci men Type: STOOL SPECIMENOrdering Facility: [facility] Address: [address] [place] [address] Performed By: #### 7 9381-0 ####[facility] LABORATORYCLIA [id number] [address] E. COLI (EAEC) Not detected Normal Not Detected [facility] Comment on above: Order Comment: Speci men Type: STOOL SPECIMENOrdering Facility: [facility] Address: [address] [place] [address] Performed By: #### 7 9381-0 ####[facility] LABORATORYCLIA [id number] [address] E. COLI (EPEC) Detected Abnormal Not Detected [facility] Comment on above: Order Comment: Speci men Type: STOOL SPECIMENOrdering Facility: [facility] Address: [address] [place] [address] Performed By: #### 7 9381-0 ####[facility] LABORATORYCLIA [id number] [address] E. COLI (ETEC) Not detected Normal Not Detected [facility] Comment on above: Order Comment: Speci men Type: STOOL SPECIMENOrdering Facility: [facility] Address: [address] [place] [address] Performed By: #### 7 9381-0 ####[facility] LABORATORYIA [id number] [address] E. COLI (STEC) Not detected Normal Not Detected [facility] Comment on above: Order Comment: Speci men Type: STOOL SPECIMENOrdering Facility: [facility] Address: [address] [place] [address] Performed By: #### 7 9381-0 ####[facility] LABORATORYIA [id number] [address] [place] E. coli O157:H7 DNA AMADOU+probe Ql (Unsp spec) Not Applicable Normal Not Detected [facility] Comment on above: Order Comment: Speci men Type: STOOL SPECIMENOrdering Facility: [facility] Address: [address] [place] [address] Performed By: #### 7 9381-0 ####[facility] LABORATORYCLIA [id number] [address] [place] E. histolytica DNA AMADOU+probe Ql (Unsp spec) Not detected Normal Not Detected [facility] Comment on above: Order Comment: Speci men Type: STOOL SPECIMENOrdering Facility: [facility] Address: [address] [place] [address] Performed By: #### 7 9381-0 ####[facility] LABORATORYCLIA [id number] [address] [place] G. lamblia DNA AMADOU+probe Ql (Unsp spec) Not detected Normal Not Detected [facility] Comment on above: Order Comment: Speci men Type: STOOL SPECIMENOrdering Facility: [facility] Address: [address] [place] [address] Performed By: #### 7 9381-0 ####[facility] LABORATORYCLIA [id number] [address] [place] NOROVIRUS GI/GII Not detected Normal Not Detected [facility] Comment on above: Order Comment: Speci men Type: STOOL SPECIMENOrdering Facility: [facility] Address: [address] [place] [address] Performed By: #### 7 9381-0 ####[facility] LABORATORYCLIA [id number] [address] OF [place] PLESIOMONAS SHIGELLOIDES Not detected Normal Not Detected [facility] Comment on above: Order Comment: Speci men Type: STOOL SPECIMENOrdering Facility: [facility] Address: [address] [place] [address] Performed By: #### 7 9381-0 ####[facility] LABORATORYCLIA [id number] [address] [place] ROTOVIRUS A Not detected Normal Not Detected [facility] Comment on above: Order Comment: Speci men Type: STOOL SPECIMENOrdering Facility: [facility] Address: [address] [place] [address] Performed By: #### 7 9381-0 ####[facility] LABORATORYCLIA [id number] [address] OF [facility] Salmonella sp DNA AMADOU+probe Ql (Unsp spec) Not detected Normal Not Detected [facility] Comment on above: Order Comment: Speci men Type: STOOL SPECIMENOrdering Facility: [facility] Address: [address] [place] [address] Performed By: #### 7 9381-0 ####[facility] LABORATORYCLIA [id number] [address] [place] SAPOVIRUS I,II,IV,V Not detected Normal Not Detected [facility] Comment on above: Order Comment: Speci men Type: STOOL SPECIMENOrdering Facility: [facility] Address: [address] [place] [address] Performed By: #### 7 9381-0 ####[facility] LABORATORYCLIA [id number] [address] [place] Shigella species+EIEC invasion plasmid antigen H ipaH gene AMADOU+probe Ql (Stl) Not detected Normal Not Detected [facility] Comment on above: Order Comment: Speci men Type: STOOL SPECIMENOrdering Facility: [facility] Address: [address] [place] [address] Performed By: #### 7 9381-0 ####[facility] LABORATORYCLIA [id number] [address] [place] V. cholerae DNA AMADOU+probe Ql (Unsp spec) Not detected Normal Not Detected [facility] Comment on above: Order Comment: Speci men Type: STOOL SPECIMENOrdering Facility: [facility] Address: [address] [place] [address] Performed By: #### 7 9381-0 ####[facility] LABORATORYCLIA [id number] [place] [address] [place] Vibrio sp DNA AMADOU+probe Nom (Unsp spec) Not detected Normal Not Detected [facility] Comment on above: Order Comment: Speci men Type: STOOL SPECIMENOrdering Facility: [facility] Address: [address] [place] [address] Performed By: #### 7 9381-0 ####[facility] LABORATORYCLIA [id number] [address] Yersinia sp DNA AMADOU+probe Nom (Unsp spec) Not detected Normal Not Detected [facility] Comment on above: Order Comment: Speci men Type: STOOL SPECIMENOrdering Facility: [facility] Address: [address] [place] [address] Performed By: #### 7 9381-0 ####[facility] LABORATORYCLIA [id number] [address] [place] NUTRITIONon 05-04-2022 NUTRITION Normal [facility] THERAPY NTon 05-04-2022 THERAPY NT Normal [facility] THERAPY NT Normal [facility] XR CHEST 1V FRONTALon 2021 XR CHEST 1V FRONTAL Normal [facility] CASE MANAGEMon 05-03-2022 CASE MANAGEM Normal [facility] CASE MANAGEM Normal [facility] CASE MANAGEM Normal [facility] CASE MANAGEM Normal [facility] CBC W Auto Differential pane l (Bld)on 05-03-2022 Band form neutrophils/100 WBC (Bld) 1.0 % Normal [facility] Comment on above: Order Comment: Speci men Type: BLOOD SPECIMENOrdering Facility: [facility] Address: [address] [place] [address] Performed By: #### 5 7021-8 ####[facility] LABORATORYCLIA [id number] [address] [place] Basophils/100 WBC (Bld) 0.0 % Normal [facility] Comment on above: Order Comment: Speci men Type: BLOOD SPECIMENOrdering Facility: [facility] Address: [address] [place] [address] Performed By: #### 5 7021-8 ####[facility] LABORATORYCLIA [id number] [place] [address] [place] Differential cell count method Nom (Bld) Manual Normal [facility] Comment on above: Order Comment: Speci men Type: BLOOD SPECIMENOrdering Facility: [facility] Address: [address] [place] [address] Performed By: #### 5 7021-8 ####[facility] LABORATORYCLIA [id number] [place] [address] [place] Eosinophils (Bld) [#/Vol] 0.15 10*3/uL Normal <0.46 [facility] Comment on above: Order Comment: Speci men Type: BLOOD SPECIMENOrdering Facility: [facility] Address: [address] [place] [address] Performed By: #### 5 7021-8 ####[facility] LABORATORYCLIA [id number] [address] [place] Eosinophils/100 WBC (Bld) 1.0 % Normal [facility] Comment on above: Order Comment: Speci men Type: BLOOD SPECIMENOrdering Facility: [facility] Address: [address] [place] [address] Performed By: #### 5 7021-8 ####[facility] LABORATORYCLIA [id number] [address] [place] Erythrocyte distribution width (RBC) [Ratio] 15.4 % High 11.5-15.0 [facility] Comment on above: Order Comment: Speci men Type: BLOOD SPECIMENOrdering Facility: [facility] Address: [address] [place] [address] Performed By: #### 5 7021-8 ####[facility] LABORATORYCLIA [id number] [address] OF [place] Hematocrit (Bld) [Volume fraction] 29.2 % Low 39.0-51.0 [facility] Comment on above: Order Comment: Speci men Type: BLOOD SPECIMENOrdering Facility: [facility] Address: [address] [place] [address] Performed By: #### 5 7021-8 ####[facility] LABORATORYCLIA [id number] [place] [address] [place] Hemoglobin (Bld) [Mass/Vol] 9.4 g/dL Low 13.0-17.0 [facility] Comment on above: Order Comment: Speci men Type: BLOOD SPECIMENOrdering Facility: [facility] Address: [address] [place] [address] Performed By: #### 5 7021-8 ####[facility] LABORATORYCLIA [id number] [place] [address] [place] Lymphocytes (Bld) [#/Vol] 0.45 10*3/uL Low 1.00-4.00 [facility] Comment on above: Order Comment: Speci men Type: BLOOD SPECIMENOrdering Facility: [facility] Address: [address] [place] [address] Performed By: #### 5 7021-8 ####[facility] LABORATORYCLIA [id number] [address] OF [facility] Lymphocytes/100 WBC (Bld) 3.0 % Normal [facility] Comment on above: Order Comment: Speci men Type: BLOOD SPECIMENOrdering Facility: [facility] Address: [address] [place] [address] Performed By: #### 5 7021-8 ####[facility] LABORATORYCLIA [id number] [place] [address] [place] MCH (RBC) [Entitic mass] 30.8 pg Normal 26.0-34.0 [facility] Comment on above: Order Comment: Speci men Type: BLOOD SPECIMENOrdering Facility: [facility] Address: [address] [place] [address] Performed By: #### 5 7021-8 ####[facility] LABORATORYCLIA [id number] [place] [address] [place] MCHC (RBC) [Mass/Vol] 32.2 g/dL Normal 30.5-36.0 [facility] Comment on above: Order Comment: Speci men Type: BLOOD SPECIMENOrdering Facility: [facility] Address: [address] [place] [address] Performed By: #### 5 7021-8 ####[facility] LABORATORYCLIA [id number] [place] [address] [place] MCV (RBC) [Entitic vol] 95.7 fL Normal 80.0-100.0 [facility] Comment on above: Order Comment: Speci men Type: BLOOD SPECIMENOrdering Facility: [facility] Address: [address] [place], [place] [address] Performed By: #### 5 7021-8 ####[facility] LABORATORYCLIA [id number] [place] [address] [place] Metamyelocytes/100 WBC (Bld) 1.0 % Normal [facility] Comment on above: Order Comment: Speci men Type: BLOOD SPECIMENOrdering Facility: [facility] Address: [address] [place], [place] [address] Performed By: #### 5 7021-8 ####[facility] LABORATORYCLIA [id number] [place] [address] [place] Neutrophils (Bld) [#/Vol] 13.48 10*3/uL High 1.45-7.50 [facility] Comment on above: Order Comment: Speci men Type: BLOOD SPECIMENOrdering Facility: [facility] Address: [address] [place], [place] [address] Performed By: #### 5 7021-8 ####[facility] LABORATORYCLIA [id number] [address] [place] Neutrophils/100 WBC (Bld) 88.0 % Normal [facility] Comment on above: Order Comment: Speci men Type: BLOOD SPECIMENOrdering Facility: [facility] Address: [address] [place], [place] [address] Performed By: #### 5 7021-8 ####[facility] LABORATORYCLIA [id number] [address] [place] Nucleated RBC/100 WBC (Bld) [Ratio] 0.0 /100 WBC Normal [facility] Comment on above: Order Comment: Speci men Type: BLOOD SPECIMENOrdering Facility: [facility] Address: [address] [place] [address] Performed By: #### 5 7021-8 ####[facility] LABORATORYCLIA [id number] [place] [address] [place] Ovalocytes LM Ql (Bld) Few Normal [facility] Comment on above: Order Comment: Speci men Type: BLOOD SPECIMENOrdering Facility: [facility] Address: [address] [place] [address] Performed By: #### 5 7021-8 ####[facility] LABORATORYCLIA [id number] [address] [place] PLATELET ESTIMATE Adequate Normal [facility] Comment on above: Order Comment: Speci men Type: BLOOD SPECIMENOrdering Facility: [facility] Address: [address] [place] [address] Performed By: #### 5 7021-8 ####[facility] LABORATORYCLIA [id number] [place] [address] [place] Platelet mean volume (Bld) [Entitic vol] 9.0 fL Normal 9.0-12.7 [facility] Comment on above: Order Comment: Speci men Type: BLOOD SPECIMENOrdering Facility: [facility] Address: [address] [place], [place] [address] Performed By: #### 5 7021-8 ####[facility] LABORATORYCLIA [id number] [place] [address] [place] Platelets (Bld) [#/Vol] 267 10*3/uL Normal 150-400 [facility] Comment on above: Order Comment: Speci men Type: BLOOD SPECIMENOrdering Facility: [facility] Address: [address] [place] [address] Performed By: #### 5 7021-8 ####[facility] LABORATORYCLIA [id number] [address] Polychromasia LM Ql (Bld) Slight Normal [facility] Comment on above: Order Comment: Speci men Type: BLOOD SPECIMENOrdering Facility: [facility] Address: [address] [place] [address] Performed By: #### 5 7021-8 ####[facility] LABORATORYCLIA [id number] [place] [address] [place] RBC (Bld) [#/Vol] 3.05 10*6/uL Low 4.20-6.00 [facility] Comment on above: Order Comment: Speci men Type: BLOOD SPECIMENOrdering Facility: [facility] Address: [address] [place] [address] Performed By: #### 5 7021-8 ####[facility] LABORATORYCLIA [id number] [address] RED CELL MORPH Reviewed: see result s of individual morphologies Normal [facility] Comment on above: Order Comment: Speci men Type: BLOOD SPECIMENOrdering Facility: [facility] Address: [address] [place] [address] Performed By: #### 5 7021-8 ####[facility] LABORATORYCLIA [id number] [address] WAM - ABS BASO 0.00 k/uL Normal <0.11 [facility] Comment on above: Order Comment: Speci men Type: BLOOD SPECIMENOrdering Facility: [facility] Address: [address] [place] [address] Performed By: #### 5 7021-8 ####[facility] LABORATORYCLIA [id number] [address] WAM - ABS MONO 0.91 k/uL High <0.87 [facility] Comment on above: Order Comment: Speci men Type: BLOOD SPECIMENOrdering Facility: [facility] Address: [address] [place] [address] Performed By: #### 5 7021-8 ####[facility] LABORATORYCLIA [id number] [place] [address] [place] WAM - MONO% 6.0 % Normal [facility] Comment on above: Order Comment: Speci men Type: BLOOD SPECIMENOrdering Facility: [facility] Address: [address] [place] [address] Performed By: #### 5 7021-8 ####[facility] LABORATORYCLIA [id number] [address] [place] WAM ABSOLUTE NRBC <0.01 Normal <0.01 [facility] Comment on above: Order Comment: Speci men Type: BLOOD SPECIMENOrdering Facility: [facility] Address: [address] [place] [address] Performed By: #### 5 7021-8 ####[facility] LABORATORYCLIA [id number] [place] [address] [place] WBC (Bld) [#/Vol] 15.15 10*3/uL High 3.70-11.00 [facility] Comment on above: Order Comment: Speci men Type: BLOOD SPECIMENOrdering Facility: [facility] Address: [address] [place] [address] Performed By: #### 5 7021-8 ####[facility] LABORATORYCLIA [id number] [place] [address] [place] THERAPY NTon 05-03-2022 THERAPY NT Normal [facility] THERAPY NT Normal [facility] ALLIED HEALTHon 05-02-2022 ALLIED HEALTH Normal [facility] Basic metabolic 2000 panelon 05-02-2022 Anion gap [Moles/Vol] 14 mmol/L Normal 5-16 [facility] Comment on above: Order Comment: Speci men Type: BLOOD SPECIMENOrdering Facility: [facility] Address: [address] [place] [address] Performed By: #### 2 4321-2 ####[facility] LABORATORYCLIA [id number] [place] [address] [place] Calcium [Mass/Vol] 8.3 mg/dL Low 8.5-10.5 [facility] Comment on above: Order Comment: Speci men Type: BLOOD SPECIMENOrdering Facility: [facility] Address: [address] [address] Performed By: #### 2 4321-2 ####[facility] LABORATORYCLIA [id number] [place] [address] [place] Chloride [Moles/Vol] 94 mmol/L Low 98-107 [facility] Comment on above: Order Comment: Speci men Type: BLOOD SPECIMENOrdering Facility: [facility] Address: [address] [place] [address] Performed By: #### 2 4321-2 ####[facility] LABORATORYCLIA [id number] [place] [address] [place] CO2 [Moles/Vol] 23 mmol/L Normal 21-32 [facility] Comment on above: Order Comment: Speci men Type: BLOOD SPECIMENOrdering Facility: [facility] Address: [address] [place] [address] Performed By: #### 2 4321-2 ####[facility] LABORATORYCLIA [id number] [place] [address] [place] Creatinine [Mass/Vol] 6.09 mg/dL High 0.50-1.40 [facility] Comment on above: Order Comment: Speci men Type: BLOOD SPECIMENOrdering Facility: [facility] Address: [address] [place] [address] Result Comment: Macrina ents receiving either N-Acetylcysteine (NAC) or Metamizole prior to venipuncture, may have falsely depressed results. Performed By: #### 2 4321-2 ####[facility] LABORATORYCLIA [id number] [place] [address] [place] ESTIMATED GLOMERULAR FILTRATION RATE 10 mL/min/1.73m??? Low >=60 [facility] Comment on above: Order Comment: Speci men Type: BLOOD SPECIMENOrdering Facility: [facility] Address: [address] [id number] Result Comment: Caryl mated Glomerular Filtration Rate (eGFR) is calculated using the 2020 CKD-EPI creatinine equation. This equation utilizes serum creatinine, sex, and age as parameters. The creatinine assay has traceable calibration to isotope dilution-mass spectrometry. Refer to KDIGO guidelines for clinical interpretation. In patients with unstable renal function, e.g. those with acute kidney injury, the eGFR may not accurately reflect actual GFR. Performed By: #### 2 4321-2 ####[facility] LABORATORYCLIA [id number] [place] [address] [place] Glucose [Mass/Vol] 130 mg/dL High 70-100 [facility] Comment on above: Order Comment: Kelsi huff Type: BLOOD SPECIMENOrdering Facility: [facility] Address: [address] [phone] Result Comment: The [place] [employer] (ADA) provides guidance for cutoff values for fasting glucose and random glucose. The ADA defines fasting as no caloric intake for at least 8 hours. Fasting plasma glucose results between 100 to 125 mg/dL indicate increased risk for diabetes (prediabetes).Fasting plasma glucose results greater than or equal to 126 mg/dL meet the criteria for diagnosis of diabetes. In the absence of unequivocal hyperglycemia, results should be confirmed by repeat testing. In a patient with classic symptoms of hyperglycemia or hyperglycemic crisis, random plasma glucose results greater than or equal to 200 mg/dL meet the criteria for diagnosis of diabetes.Reference: Standards of Medical Care in Diabetes 2016, [place] [employer]. Diabetes Care. 2016.39(Suppl 1).Results may be falsely elevated after the administration of Sulfapyridine.Results may be falsely depressed after the administration of Sulfasalazine. Performed By: #### 2 4321-2 ####[facility] LABORATORYCLIA [id number] [place] [address] [place] Potassium [Moles/Vol] 4.6 mmol/L Normal 3.5-5.1 [facility] Comment on above: Order Comment: Kelsi huff Type: BLOOD SPECIMENOrdering Facility: [facility] Address: [address] [place] [address] Result Comment: Slig ht Hemolysis, Result may be affected. Performed By: #### 2 4321-2 ####[facility] LABORATORYCLIA [id number] [place] [id number] [place] Sodium [Moles/Vol] 131 mmol/L Low 136-145 [facility] Comment on above: Order Comment: Speci men Type: BLOOD SPECIMENOrdering Facility: [facility] Address: [address] [place] [address] Performed By: #### 2 4321-2 ####[facility] LABORATORYCLIA [id number] [place] [address] [place] Urea nitrogen [Mass/Vol] 82 mg/dL High 7-26 [facility] Comment on above: Order Comment: Speci men Type: BLOOD SPECIMENOrdering Facility: [facility] Address: [address] [place] [address] Performed By: #### 2 4321-2 ####[facility] LABORATORYCLIA [id number] [place] [address] [place] CASE MANAGEMon 05-02-2022 CASE MANAGEM Normal [facility] CBC W Auto Differential pane l (Bld)on 05-02-2022 Band form neutrophils/100 WBC (Bld) 1.0 % Normal [facility] Comment on above: Order Comment: Speci men Type: BLOOD SPECIMENOrdering Facility: [facility] Address: [address] [place] [address] Performed By: #### 5 7021-8 ####[facility] LABORATORYCLIA [id number] [place] [address] [place] Basophils/100 WBC (Bld) 0.0 % Normal [facility] Comment on above: Order Comment: Speci men Type: BLOOD SPECIMENOrdering Facility: [facility] Address: [address] [place] [address] Performed By: #### 5 7021-8 ####[facility] LABORATORYCLIA [id number] [address] [place] Differential cell count method Nom (Bld) Manual Normal [facility] Comment on above: Order Comment: Speci men Type: BLOOD SPECIMENOrdering Facility: [facility] Address: [address] [place] [address] Performed By: #### 5 7021-8 ####[facility] LABORATORYCLIA [id number] [place] [address] [place] Eosinophils (Bld) [#/Vol] 0.40 10*3/uL Normal <0.46 [facility] Comment on above: Order Comment: Speci men Type: BLOOD SPECIMENOrdering Facility: [facility] Address: [address] [place] [address] Performed By: #### 5 7021-8 ####[facility] LABORATORYCLIA [id number] [address] Eosinophils/100 WBC (Bld) 3.0 % Normal [facility] Comment on above: Order Comment: Speci men Type: BLOOD SPECIMENOrdering Facility: [facility] Address: [address] [place] [address] Performed By: #### 5 7021-8 ####[facility] LABORATORYCLIA [id number] [address] [place] Erythrocyte distribution width (RBC) [Ratio] 15.0 % Normal 11.5-15.0 [facility] Comment on above: Order Comment: Speci men Type: BLOOD SPECIMENOrdering Facility: [facility] Address: [address] [place] [address] Performed By: #### 5 7021-8 ####[facility] LABORATORYCLIA [id number] [address] [place] Hematocrit (Bld) [Volume fraction] 28.5 % Low 39.0-51.0 [facility] Comment on above: Order Comment: Speci men Type: BLOOD SPECIMENOrdering Facility: [facility] Address: [address] [place] [address] Performed By: #### 5 7021-8 ####[facility]ORATORYCLIA [id number] [place] [address] [place] Hemoglobin (Bld) [Mass/Vol] 9.5 g/dL Low 13.0-17.0 [facility] Comment on above: Order Comment: Speci men Type: BLOOD SPECIMENOrdering Facility: [facility] Address: [address] [place] [address] Performed By: #### 5 7021-8 ####[facility] LABORATORYCLIA [id number] [place] [address] [place] Lymphocytes (Bld) [#/Vol] 2.11 10*3/uL Normal 1.00-4.00 [facility] Comment on above: Order Comment: Speci men Type: BLOOD SPECIMENOrdering Facility: [facility] Address: [address] [place] [address] Performed By: #### 5 7021-8 ####[facility] LABORATORYCLIA [id number] [address] [place] Lymphocytes/100 WBC (Bld) 16.0 % Normal [facility] Comment on above: Order Comment: Speci men Type: BLOOD SPECIMENOrdering Facility: [facility] Address: [address] [place] [address] Performed By: #### 5 7021-8 ####[facility] LABORATORYCLIA [id number] [place] [address] [place] MCH (RBC) [Entitic mass] 30.8 pg Normal 26.0-34.0 [facility] Comment on above: Order Comment: Speci men Type: BLOOD SPECIMENOrdering Facility: [facility] Address: [address] [place], [place] [address] Performed By: #### 5 7021-8 ####[facility] LABORATORYCLIA [id number] [address] [place] MCHC (RBC) [Mass/Vol] 33.3 g/dL Normal 30.5-36.0 [facility] Comment on above: Order Comment: Speci men Type: BLOOD SPECIMENOrdering Facility: [facility] Address: [address] [place], [place] [address] Performed By: #### 5 7021-8 ####[facility] LABORATORYCLIA [id number] [place] [address] [place] MCV (RBC) [Entitic vol] 92.5 fL Normal 80.0-100.0 [facility] Comment on above: Order Comment: Speci men Type: BLOOD SPECIMENOrdering Facility: [facility] Address: [address] [place], [place] [address] Performed By: #### 5 7021-8 ####[facility] LABORATORYCLIA [id number] [place] [address] [place] Metamyelocytes/100 WBC (Bld) 1.0 % Normal [facility] Comment on above: Order Comment: Speci men Type: BLOOD SPECIMENOrdering Facility: [facility] Address: [address] [place], [place] [address] Performed By: #### 5 7021-8 ####[facility] LABORATORYCLIA [id number] [place] [address] [place] Neutrophils (Bld) [#/Vol] 9.88 10*3/uL High 1.45-7.50 [facility] Comment on above: Order Comment: Speci men Type: BLOOD SPECIMENOrdering Facility: [facility] Address: [address] [place], [place] [address] Performed By: #### 5 7021-8 ####[facility] LABORATORYCLIA [id number] [place] [address] [place] Neutrophils/100 WBC (Bld) 74.0 % Normal [facility] Comment on above: Order Comment: Speci men Type: BLOOD SPECIMENOrdering Facility: [facility] Address: [address] [place], [place] [address] Performed By: #### 5 7021-8 ####[facility]ORATORYCLIA [id number] [address] [place] Nucleated RBC/100 WBC (Bld) [Ratio] 0.0 /100 WBC Normal [facility] Comment on above: Order Comment: Speci men Type: BLOOD SPECIMENOrdering Facility: [facility] Address: [address] [place] [address] Performed By: #### 5 7021-8 ####[facility] LABORATORYCLIA [id number] [place] [address] [place] Ovalocytes LM Ql (Bld) Few Normal [facility] Comment on above: Order Comment: Speci men Type: BLOOD SPECIMENOrdering Facility: [facility] Address: [address] [place] [address] Performed By: #### 5 7021-8 ####[facility] CENTERIA [id number] [place] [address] [place] PLATELET ESTIMATE Adequate Normal [facility] Comment on above: Order Comment: Speci men Type: BLOOD SPECIMENOrdering Facility: [facility] Address: [address] [place] [address] Performed By: #### 5 7021-8 ####[facility] LABORATORYIA [id number] [place] [address] [place] Platelet mean volume (Bld) [Entitic vol] 9.2 fL Normal 9.0-12.7 [facility] Comment on above: Order Comment: Speci men Type: BLOOD SPECIMENOrdering Facility: [facility] Address: [address] [place] [address] Performed By: #### 5 7021-8 ####[facility] LABORATORYIA [id number] [place] [address] [place] Platelets (Bld) [#/Vol] 228 10*3/uL Normal 150-400 [facility] Comment on above: Order Comment: Speci men Type: BLOOD SPECIMENOrdering Facility: [facility] Address: [address] [place] [address] Performed By: #### 5 7021-8 ####[facility]ORATORYCLIA [id number] [address] Polychromasia LM Ql (Bld) Slight Normal [facility] Comment on above: Order Comment: Speci men Type: BLOOD SPECIMENOrdering Facility: [facility] Address: [address] [place] [address] Performed By: #### 5 7021-8 ####[facility]ORATORYCLIA [id number] [place] [address] [place] RBC (Bld) [#/Vol] 3.08 10*6/uL Low 4.20-6.00 [facility] Comment on above: Order Comment: Speci men Type: BLOOD SPECIMENOrdering Facility: [facility] Address: [address] [place] [address] Performed By: #### 5 7021-8 ####[facility] LABORATORYCLIA [id number] [address] RED CELL MORPH Reviewed: see result s of individual morphologies Normal [facility] Comment on above: Order Comment: Speci men Type: BLOOD SPECIMENOrdering Facility: [facility] Address: [address] [place] [address] Performed By: #### 5 7021-8 ####[facility] LABORATORYCLIA [id number] [address] OF [facility] WAM - ABS BASO 0.00 k/uL Normal <0.11 [facility] Comment on above: Order Comment: Speci men Type: BLOOD SPECIMENOrdering Facility: [facility] Address: [address] [place] [address] Performed By: #### 5 7021-8 ####[facility] LABORATORYCLIA [id number] [address] WAM - ABS MONO 0.66 k/uL Normal <0.87 [facility] Comment on above: Order Comment: Speci men Type: BLOOD SPECIMENOrdering Facility: [facility] Address: [address] [place] [address] Performed By: #### 5 7021-8 ####[facility] LABORATORYCLIA [id number] [place] [address] [place] WAM - MONO% 5.0 % Normal [facility] Comment on above: Order Comment: Speci men Type: BLOOD SPECIMENOrdering Facility: [facility] Address: [address] [place] [address] Performed By: #### 5 7021-8 ####[facility] LABORATORYCLIA [id number] [place] [address] [place] WAM ABSOLUTE NRBC <0.01 Normal <0.01 [facility] Comment on above: Order Comment: Speci men Type: BLOOD SPECIMENOrdering Facility: [facility] Address: [address] [place] [address] Performed By: #### 5 7021-8 ####[facility]ORATORYCLIA [id number] [place] [address] [place] WBC (Bld) [#/Vol] 13.17 10*3/uL High 3.70-11.00 [facility] Comment on above: Order Comment: Speci men Type: BLOOD SPECIMENOrdering Facility: [facility] Address: [address] [place] [address] Performed By: #### 5 7021-8 ####[facility] LABORATORYCLIA [id number] [address] [place] CONSULT PROGon 05-02-2022 CONSULT PROG [facility] CONSULT PROG [facility] THERAPY NTon 05-02-2022 THERAPY NT Normal [facility] THERAPY NT [facility] Basic metabolic 2000 panelon 05-01-2022 Anion gap [Moles/Vol] 10 mmol/L Normal 5-16 [facility] Comment on above: Order Comment: Speci men Type: BLOOD SPECIMENOrdering Facility: [facility] Address: [address] [place] [address] Performed By: #### 2 4321-2 ####[facility] LABORATORYCLIA [id number] [place] [address] [place] Calcium [Mass/Vol] 8.3 mg/dL Low 8.5-10.5 [facility] Comment on above: Order Comment: Speci men Type: BLOOD SPECIMENOrdering Facility: [facility] Address: [address] [place] [address] Performed By: #### 2 4321-2 ####[facility]ORATORYCLIA [id number] [place] [address] [place] Chloride [Moles/Vol] 95 mmol/L Low 98-107 [facility] Comment on above: Order Comment: Speci men Type: BLOOD SPECIMENOrdering Facility: [facility] Address: [address] [place] [address] Performed By: #### 2 4321-2 ####[facility] LABORATORYCLIA [id number] [place] [address] [place] CO2 [Moles/Vol] 29 mmol/L Normal 21-32 [facility] Comment on above: Order Comment: Speci men Type: BLOOD SPECIMENOrdering Facility: [facility] Address: [address] [place] [address] Performed By: #### 2 4321-2 ####[facility]ORATORYCLIA [id number] [place] [address] [place] Creatinine [Mass/Vol] 5.48 mg/dL High 0.50-1.40 [facility] Comment on above: Order Comment: Speci men Type: BLOOD SPECIMENOrdering Facility: [facility] Address: [address] [place] [address] Result Comment: Macrina ents receiving either N-Acetylcysteine (NAC) or Metamizole prior to venipuncture, may have falsely depressed results. Performed By: #### 2 4321-2 ####[facility] LABORATORYCLIA [id number] [address] STATES OF [facility] ESTIMATED GLOMERULAR FILTRATION RATE 11 mL/min/1.73m??? Low >=60 [facility] Comment on above: Order Comment: Kelsi huff Type: BLOOD SPECIMENOrdering Facility: [facility] Address: [address] [place] [address] Result Comment: Caryl mated Glomerular Filtration Rate (eGFR) is calculated using the 2020 CKD-EPI creatinine equation. This equation utilizes serum creatinine, sex, and age as parameters. The creatinine assay has traceable calibration to isotope dilution-mass spectrometry. Refer to KDIGO guidelines for clinical interpretation. In patients with unstable renal function, e.g. those with acute kidney injury, the eGFR may not accurately reflect actual GFR. Performed By: #### 2 4321-2 ####[facility] LABORATORYCLIA [id number] [place] [address] [place] Glucose [Mass/Vol] 125 mg/dL High 70-100 [facility] Comment on above: Order Comment: Kelsi huff Type: BLOOD SPECIMENOrdering Facility: [facility] Address: [address] [place] [address] Result Comment: The [place] [employer] (ADA) provides guidance for cutoff values for fasting glucose and random glucose. The ADA defines fasting as no caloric intake for at least 8 hours. Fasting plasma glucose results between 100 to 125 mg/dL indicate increased risk for diabetes (prediabetes).Fasting plasma glucose results greater than or equal to 126 mg/dL meet the criteria for diagnosis of diabetes. In the absence of unequivocal hyperglycemia, results should be confirmed by repeat testing. In a patient with classic symptoms of hyperglycemia or hyperglycemic crisis, random plasma glucose results greater than or equal to 200 mg/dL meet the criteria for diagnosis of diabetes.Reference: Standards of Medical Care in Diabetes 2016, [place] [employer]. Diabetes Care. 2016.39(Suppl 1).Results may be falsely elevated after the administration of Sulfapyridine.Results may be falsely depressed after the administration of Sulfasalazine. Performed By: #### 2 4321-2 ####[facility] LABORATORYCLIA [id number] [place] [id number] [place] Potassium [Moles/Vol] 4.2 mmol/L Normal 3.5-5.1 [facility] Comment on above: Order Comment: Speci men Type: BLOOD SPECIMENOrdering Facility: [facility] Address: [address] [place] [address] Result Comment: Slig ht Hemolysis, Result may be affected. Performed By: #### 2 4321-2 ####[facility]ORATORYCLIA [id number] [place] [address] [place] Sodium [Moles/Vol] 134 mmol/L Low 136-145 [facility] Comment on above: Order Comment: Speci men Type: BLOOD SPECIMENOrdering Facility: [facility] Address: [address] [place] [address] Performed By: #### 2 4321-2 ####[facility]ORATORYCLIA [id number] [place] [address] [place] Urea nitrogen [Mass/Vol] 67 mg/dL High 7-26 [facility] Comment on above: Order Comment: Speci men Type: BLOOD SPECIMENOrdering Facility: [facility] Address: [address] [place] [address] Performed By: #### 2 4321-2 ####[facility]ORATORYCLIA [id number] [address] [place] CBC W Auto Differential pane l (Bld)on 05-01-2022 Band form neutrophils/100 WBC (Bld) 1.0 % Normal [facility] Comment on above: Order Comment: Speci men Type: BLOOD SPECIMENOrdering Facility: [facility] Address: [address] [place] [address] Performed By: #### 5 7021-8 ####[facility] LABORATORYCLIA [id number] [address] [place] Basophils/100 WBC (Bld) 0.0 % Normal [facility] Comment on above: Order Comment: Speci men Type: BLOOD SPECIMENOrdering Facility: [facility] Address: [address] [place] [address] Performed By: #### 5 7021-8 ####[facility] LABORATORYCLIA [id number] [place] [address] [place] BLAST% 0.0 % Normal <=0.0 [facility] Comment on above: Order Comment: Speci men Type: BLOOD SPECIMENOrdering Facility: [facility] Address: [address] [place] [address] Performed By: #### 5 7021-8 ####[facility] LABORATORYCLIA [id number] [place] [address] [place] Dacrocytes LM Ql (Bld) Few Normal [facility] Comment on above: Order Comment: Speci men Type: BLOOD SPECIMENOrdering Facility: [facility] Address: [address] [place] [address] Performed By: #### 5 7021-8 ####[facility] LABORATORYIA [id number] [address] [place] Differential cell count method Nom (Bld) Manual Normal [facility] Comment on above: Order Comment: Speci men Type: BLOOD SPECIMENOrdering Facility: [facility] Address: [address] [place] [address] Performed By: #### 5 7021-8 ####[facility] LABORATORYIA [id number] [place] [address] [place] Eosinophils (Bld) [#/Vol] 0.24 10*3/uL Normal <0.46 [facility] Comment on above: Order Comment: Speci men Type: BLOOD SPECIMENOrdering Facility: [facility] Address: [address] [place] [address] Performed By: #### 5 7021-8 ####[facility] LABORATORYIA [id number] [place] [address] [place] Eosinophils/100 WBC (Bld) 2.0 % Normal [facility] Comment on above: Order Comment: Speci men Type: BLOOD SPECIMENOrdering Facility: [facility] Address: [address] [place] [address] Performed By: #### 5 7021-8 ####[facility] LABORATORYCLIA [id number] [place] [address] [place] Erythrocyte distribution width (RBC) [Ratio] 15.0 % Normal 11.5-15.0 [facility] Comment on above: Order Comment: Speci men Type: BLOOD SPECIMENOrdering Facility: [facility] Address: [address] [place] [address] Performed By: #### 5 7021-8 ####[facility] LABORATORYCLIA [id number] [place] [address] [place] Hematocrit (Bld) [Volume fraction] 28.3 % Low 39.0-51.0 [facility] Comment on above: Order Comment: Speci men Type: BLOOD SPECIMENOrdering Facility: [facility] Address: [address] [place] [address] Performed By: #### 5 7021-8 ####[facility] LABORATORYCLIA [id number] [place] [address] [place] Hemoglobin (Bld) [Mass/Vol] 9.6 g/dL Low 13.0-17.0 [facility] Comment on above: Order Comment: Speci men Type: BLOOD SPECIMENOrdering Facility: [facility] Address: [address] [place] [address] Performed By: #### 5 7021-8 ####[facility] LABORATORYCLIA [id number] [place] [address] [place] Lymphocytes (Bld) [#/Vol] 2.52 10*3/uL Normal 1.00-4.00 [facility] Comment on above: Order Comment: Speci men Type: BLOOD SPECIMENOrdering Facility: [facility] Address: [address] [place] [address] Performed By: #### 5 7021-8 ####[facility] LABORATORYCLIA [id number] [address] [place] Lymphocytes/100 WBC (Bld) 21.0 % Normal [facility] Comment on above: Order Comment: Speci men Type: BLOOD SPECIMENOrdering Facility: [facility] Address: [address] [place] [address] Performed By: #### 5 7021-8 ####[facility] LABORATORYCLIA [id number] [address] Lymphocytes/100 WBC (Bld) 0.0 % Normal [facility] Comment on above: Order Comment: Speci men Type: BLOOD SPECIMENOrdering Facility: [facility] Address: [address] [place] [address] Performed By: #### 5 7021-8 ####[facility] LABORATORYCLIA [id number] [address] LYMPHOMA CELL 0.0 % Normal [facility] Comment on above: Order Comment: Speci men Type: BLOOD SPECIMENOrdering Facility: [facility] Address: [address] [place] [address] Performed By: #### 5 7021-8 ####[facility] LABORATORYCLIA [id number] [address] [place] MCH (RBC) [Entitic mass] 31.5 pg Normal 26.0-34.0 [facility] Comment on above: Order Comment: Speci men Type: BLOOD SPECIMENOrdering Facility: [facility] Address: [address] [place] [address] Performed By: #### 5 7021-8 ####[facility] LABORATORYCLIA [id number] [address] MCHC (RBC) [Mass/Vol] 33.9 g/dL Normal 30.5-36.0 [facility] Comment on above: Order Comment: Speci men Type: BLOOD SPECIMENOrdering Facility: [facility] Address: [address] [place] [address] Performed By: #### 5 7021-8 ####[facility] LABORATORYCLIA [id number] [address] [place] MCV (RBC) [Entitic vol] 92.8 fL Normal 80.0-100.0 [facility] Comment on above: Order Comment: Speci men Type: BLOOD SPECIMENOrdering Facility: [facility] Address: [address] [place] [address] Performed By: #### 5 7021-8 ####[facility] LABORATORYCLIA [id number] [address] [place] MEGAKARYOCYTIC FRAGMENTS 0.0 /100 WBC Normal [facility] Comment on above: Order Comment: Speci men Type: BLOOD SPECIMENOrdering Facility: [facility] Address: [address] [place] [address] Performed By: #### 5 7021-8 ####[facility] LABORATORYCLIA [id number] [place] [address] [place] Metamyelocytes/100 WBC (Bld) 2.0 % Normal [facility] Comment on above: Order Comment: Speci men Type: BLOOD SPECIMENOrdering Facility: [facility] Address: [address] [place] [address] Performed By: #### 5 7021-8 ####[facility] LABORATORYCLIA [id number] [place] [address] [place] MYELO% 2.0 % Normal [facility] Comment on above: Order Comment: Speci men Type: BLOOD SPECIMENOrdering Facility: [facility] Address: [address] [place] [address] Performed By: #### 5 7021-8 ####[facility] LABORATORYCLIA [id number] [place] [address] [place] Neutrophils (Bld) [#/Vol] 7.45 10*3/uL Normal 1.45-7.50 [facility] Comment on above: Order Comment: Speci men Type: BLOOD SPECIMENOrdering Facility: [facility] Address: [address] [place] [address] Performed By: #### 5 7021-8 ####[facility] LABORATORYCLIA [id number] [place] [address] [place] Neutrophils/100 WBC (Bld) 61.0 % Normal [facility] Comment on above: Order Comment: Speci men Type: BLOOD SPECIMENOrdering Facility: [facility] Address: [address] [place] [address] Performed By: #### 5 7021-8 ####[facility] LABORATORYCLIA [id number] [place] [address] [place] Nucleated RBC/100 WBC (Bld) [Ratio] 0.0 /100 WBC Normal [facility] Comment on above: Order Comment: Speci men Type: BLOOD SPECIMENOrdering Facility: [facility] Address: [address] [place] [address] Performed By: #### 5 7021-8 ####[facility] LABORATORYCLIA [id number] [address] [place] OTHER CELLS 0.0 % Normal [facility] Comment on above: Order Comment: Speci men Type: BLOOD SPECIMENOrdering Facility: [facility] Address: [address] [place] [address] Performed By: #### 5 7021-8 ####[facility] LABORATORYCLIA [id number] [place] [address] [place] Ovalocytes LM Ql (Bld) Few Normal [facility] Comment on above: Order Comment: Speci men Type: BLOOD SPECIMENOrdering Facility: [facility] Address: [address] [place] [address] Performed By: #### 5 7021-8 ####[facility] LABORATORYCLIA [id number] [address] [place] PLASMA CELLS 0.0 % Normal [facility] Comment on above: Order Comment: Speci men Type: BLOOD SPECIMENOrdering Facility: [facility] Address: [address] [place] [address] Performed By: #### 5 7021-8 ####[facility] LABORATORYCLIA [id number] [address] [place] PLATELET ESTIMATE Adequate Normal [facility] Comment on above: Order Comment: Speci men Type: BLOOD SPECIMENOrdering Facility: [facility] Address: [address] Performed By: #### 5 7021-8 ####[facility] LABORATORYCLIA [id number] [place] [address] [place] Platelet mean volume (Bld) [Entitic vol] 9.1 fL Normal 9.0-12.7 [facility] Comment on above: Order Comment: Speci men Type: BLOOD SPECIMENOrdering Facility: [facility] Address: [address] [place], [place] [address] Performed By: #### 5 7021-8 ####[facility] LABORATORYCLIA [id number] [place] [address] [place] Platelets (Bld) [#/Vol] 265 10*3/uL Normal 150-400 [facility] Comment on above: Order Comment: Speci men Type: BLOOD SPECIMENOrdering Facility: [facility] Address: [address] [place], [place] [address] Performed By: #### 5 7021-8 ####[facility] LABORATORYCLIA [id number] [place] [address] [place] Polychromasia LM Ql (Bld) Slight Normal [facility] Comment on above: Order Comment: Speci men Type: BLOOD SPECIMENOrdering Facility: [facility] Address: [address] Performed By: #### 5 7021-8 ####[facility] LABORATORYCLIA [id number] [place] [address] [place] PROMYL% 0.0 % Normal [facility] Comment on above: Order Comment: Speci men Type: BLOOD SPECIMENOrdering Facility: [facility] Address: [address] Performed By: #### 5 7021-8 ####[facility] LABORATORYCLIA [id number] [address] OF [facility] RBC (Bld) [#/Vol] 3.05 10*6/uL Low 4.20-6.00 [facility] Comment on above: Order Comment: Speci men Type: BLOOD SPECIMENOrdering Facility: [facility] Address: [address] [place] [address] Performed By: #### 5 7021-8 ####[facility] LABORATORYCLIA [id number] [address] RED CELL MORPH Reviewed: see result s of individual morphologies Normal [facility] Comment on above: Order Comment: Speci men Type: BLOOD SPECIMENOrdering Facility: [facility] Address: [address] [place] [address] Performed By: #### 5 7021-8 ####[facility] LABORATORYCLIA [id number] [address] Variant lymphocytes/100 WBC (Bld) 0.0 % Normal [facility] Comment on above: Order Comment: Speci men Type: BLOOD SPECIMENOrdering Facility: [facility] Address: [address] [place] [address] Performed By: #### 5 7021-8 ####[facility] LABORATORYCLIA [id number] [address] WAM - ABS BASO 0.00 k/uL Normal <0.11 [facility] Comment on above: Order Comment: Speci men Type: BLOOD SPECIMENOrdering Facility: [facility] Address: [address] [place] [address] Performed By: #### 5 7021-8 ####[facility] LABORATORYCLIA [id number] [address] WAM - ABS MONO 1.32 k/uL High <0.87 [facility] Comment on above: Order Comment: Speci men Type: BLOOD SPECIMENOrdering Facility: [facility] Address: [address] [place] [address] Performed By: #### 5 7021-8 ####[facility] LABORATORYCLIA [id number] [place] [address] [place] WAM - MONO% 11.0 % Normal [facility] Comment on above: Order Comment: Speci men Type: BLOOD SPECIMENOrdering Facility: [facility] Address: [address] [place] [address] Performed By: #### 5 7021-8 ####[facility] LABORATORYCLIA [id number] [place] [address] [place] WAM ABSOLUTE NRBC <0.01 Normal <0.01 [facility] Comment on above: Order Comment: Speci men Type: BLOOD SPECIMENOrdering Facility: [facility] Address: [address] [place] [address] Performed By: #### 5 7021-8 ####[facility] LABORATORYCLIA [id number] [place] [address] [place] WBC (Bld) [#/Vol] 12.02 10*3/uL High 3.70-11.00 [facility] Comment on above: Order Comment: Speci men Type: BLOOD SPECIMENOrdering Facility: [facility] Address: [address] [place] [address] Performed By: #### 5 7021-8 ####[facility] LABORATORYCLIA [id number] [address] [place] CONSULT PROGon 05-01-2022 CONSULT PROG Normal [facility] THERAPY NTon 05-01-2022 THERAPY NT Normal [facility] ALLIED HEALTHon 04-30-2022 ALLIED HEALTH Normal [facility] Basic metabolic 2000 panelon 04-30-2022 Anion gap [Moles/Vol] 8 mmol/L Normal 5-16 [facility] Comment on above: Order Comment: Speci men Type: BLOOD SPECIMENOrdering Facility: [facility] Address: [address] [place] [address] Performed By: #### 2 4321-2, 58514-2, 2777- ####[facility] LABORATORYCLIA [id number] [place] [id number] [place] Calcium [Mass/Vol] 8.3 mg/dL Low 8.5-10.5 [facility] Comment on above: Order Comment: Speci men Type: BLOOD SPECIMENOrdering Facility: [facility] Address: [address] [place] [address] Performed By: #### 2 4321-2, , 2776-08 ####[facility] LABORATORYCLIA [id number] [place] [id number] [place] Chloride [Moles/Vol] 96 mmol/L Low 98-107 [facility] Comment on above: Order Comment: Speci men Type: BLOOD SPECIMENOrdering Facility: [facility] Address: [address] [place] [address] Performed By: #### 2 4321-2, , 2776-08 ####[facility] LABORATORYCLIA [id number] [place] [address] [place] CO2 [Moles/Vol] 28 mmol/L Normal 21-32 [facility] Comment on above: Order Comment: Speci men Type: BLOOD SPECIMENOrdering Facility: [facility] Address: [address] [place] [address] Performed By: #### 2 4321-2, , 2776-08 ####[facility] LABORATORYCLIA [id number] [place] [address] [place] Creatinine [Mass/Vol] 4.08 mg/dL High 0.50-1.40 [facility] Comment on above: Order Comment: Speci men Type: BLOOD SPECIMENOrdering Facility: [facility] Address: [address] [place] [address] Result Comment: Macrina ents receiving either N-Acetylcysteine (NAC) or Metamizole prior to venipuncture, may have falsely depressed results. Performed By: #### 2 4321-2, , 2776-08 ####[facility] LABORATORYCLIA [id number] [place] [address] [place] ESTIMATED GLOMERULAR FILTRATION RATE 16 mL/min/1.73m??? Low >=60 [facility] Comment on above: Order Comment: Samanthamarcellus huff Type: BLOOD SPECIMENOrdering Facility: [facility] Address: [address] [place], [place] [address] Result Comment: Caryl mated Glomerular Filtration Rate (eGFR) is calculated using the 2020 CKD-EPI creatinine equation. This equation utilizes serum creatinine, sex, and age as parameters. The creatinine assay has traceable calibration to isotope dilution-mass spectrometry. Refer to KDIGO guidelines for clinical interpretation. In patients with unstable renal function, e.g. those with acute kidney injury, the eGFR may not accurately reflect actual GFR. Performed By: #### 2 4321-2, 89767-4, 2777-1 ####[facility] LABORATORYCLIA [id number] [place] [address] [place] Glucose [Mass/Vol] 266 mg/dL High 70-100 [facility] Comment on above: Order Comment: Kelsi huff Type: BLOOD SPECIMENOrdering Facility: [facility] Address: [address] [place] [address] Result Comment: The [place] [employer] (ADA) provides guidance for cutoff values for fasting glucose and random glucose. The ADA defines fasting as no caloric intake for at least 8 hours. Fasting plasma glucose results between 100 to 125 mg/dL indicate increased risk for diabetes (prediabetes).Fasting plasma glucose results greater than or equal to 126 mg/dL meet the criteria for diagnosis of diabetes. In the absence of unequivocal hyperglycemia, results should be confirmed by repeat testing. In a patient with classic symptoms of hyperglycemia or hyperglycemic crisis, random plasma glucose results greater than or equal to 200 mg/dL meet the criteria for diagnosis of diabetes.Reference: Standards of Medical Care in Diabetes 2016, [place] [employer]. Diabetes Care. 2016.39(Suppl 1).Results may be falsely elevated after the administration of Sulfapyridine.Results may be falsely depressed after the administration of Sulfasalazine. Performed By: #### 2 4321-2, 15068-6, 2777-1 ####[facility] LABORATORYCLIA [id number] [place] [address] [place] Potassium [Moles/Vol] 4.1 mmol/L Normal 3.5-5.1 [facility] Comment on above: Order Comment: Speci men Type: BLOOD SPECIMENOrdering Facility: [facility] Address: [address] [place] [address] Performed By: #### 2 4321-2, 76936-2, 2776- ####[facility] LABORATORYCLIA [id number] [place] [address] [place] Sodium [Moles/Vol] 132 mmol/L Low 136-145 [facility] Comment on above: Order Comment: Speci men Type: BLOOD SPECIMENOrdering Facility: [facility] Address: [address] [place] [address] Performed By: #### 2 4321-2, , 2776-08 ####[facility] LABORATORYCLIA [id number] [address] [place] Urea nitrogen [Mass/Vol] 44 mg/dL High 7-26 [facility] Comment on above: Order Comment: Speci men Type: BLOOD SPECIMENOrdering Facility: [facility] Address: [address] [place] [address] Performed By: #### 2 4321-2, , 2776-08 ####[facility] LABORATORYCLIA [id number] [place] [address] [place] CBC W Auto Differential pane l (Bld)on 04-30-2022 Basophils (Bld) [#/Vol] 0.03 10*3/uL Normal <0.11 [facility] Comment on above: Order Comment: Speci men Type: BLOOD SPECIMENOrdering Facility: [facility] Address: [address] [place] [address] Performed By: #### 5 7021-8 ####[facility] LABORATORYCLIA [id number] [place] [address] [place] Basophils/100 WBC (Bld) 0.2 % Normal [facility] Comment on above: Order Comment: Speci men Type: BLOOD SPECIMENOrdering Facility: [facility] Address: [address] [place] [address] Performed By: #### 5 7021-8 ####[facility] LABORATORYCLIA [id number] [place] [address] [place] Differential cell count method Nom (Bld) Auto Normal [facility] Comment on above: Order Comment: Speci men Type: BLOOD SPECIMENOrdering Facility: [facility] Address: [address] [place] [address] Performed By: #### 5 7021-8 ####[facility] LABORATORYCLIA [id number] [place] [address] [place] Eosinophils (Bld) [#/Vol] 0.08 10*3/uL Normal <0.46 [facility] Comment on above: Order Comment: Speci men Type: BLOOD SPECIMENOrdering Facility: [facility] Address: [address] [place] [address] Performed By: #### 5 7021-8 ####[facility] LABORATORYCLIA [id number] [place] [address] [place] Eosinophils/100 WBC (Bld) 0.6 % Normal [facility] Comment on above: Order Comment: Speci men Type: BLOOD SPECIMENOrdering Facility: [facility] Address: [address] [place] [address] Performed By: #### 5 7021-8 ####[facility] LABORATORYCLIA [id number] [place] [address] [place] Erythrocyte distribution width (RBC) [Ratio] 15.2 % High 11.5-15.0 [facility] Comment on above: Order Comment: Speci men Type: BLOOD SPECIMENOrdering Facility: [facility] Address: [address] [place] [address] Performed By: #### 5 7021-8 ####[facility] LABORATORYCLIA [id number] [address] [place] Hematocrit (Bld) [Volume fraction] 26.4 % Low 39.0-51.0 [facility] Comment on above: Order Comment: Speci men Type: BLOOD SPECIMENOrdering Facility: [facility] Address: [address] [place] [address] Performed By: #### 5 7021-8 ####[facility] LABORATORYCLIA [id number] [address] [place] Hemoglobin (Bld) [Mass/Vol] 8.6 g/dL Low 13.0-17.0 [facility] Comment on above: Order Comment: Speci men Type: BLOOD SPECIMENOrdering Facility: [facility] Address: [address] [place] [address] Performed By: #### 5 7021-8 ####[facility] LABORATORYIA [id number] [address] [place] IMMATURE GRAN % 2.1 % Normal [facility] Comment on above: Order Comment: Speci men Type: BLOOD SPECIMENOrdering Facility: [facility] Address: [address] [place] [address] Performed By: #### 5 7021-8 ####[facility] LABORATORYIA [id number] [address] [place] IMMATURE GRAN ABS 0.29 k/uL High <0.10 [facility] Comment on above: Order Comment: Speci men Type: BLOOD SPECIMENOrdering Facility: [facility] Address: [address] [place] [address] Performed By: #### 5 7021-8 ####[facility] LABORATORYIA [id number] [address] [place] Lymphocytes (Bld) [#/Vol] 1.02 10*3/uL Normal 1.00-4.00 [facility] Comment on above: Order Comment: Speci men Type: BLOOD SPECIMENOrdering Facility: [facility] Address: [address] [place], [place] [address] Performed By: #### 5 7021-8 ####[facility] LABORATORYCLIA [id number] [address] [place] Lymphocytes/100 WBC (Bld) 7.3 % Normal [facility] Comment on above: Order Comment: Speci men Type: BLOOD SPECIMENOrdering Facility: [facility] Address: [address] [place] [address] Performed By: #### 5 7021-8 ####[facility] LABORATORYCLIA [id number] [address] [place] MCH (RBC) [Entitic mass] 30.9 pg Normal 26.0-34.0 [facility] Comment on above: Order Comment: Speci men Type: BLOOD SPECIMENOrdering Facility: [facility] Address: [address] [place] [address] Performed By: #### 5 7021-8 ####[facility] LABORATORYCLIA [id number] [address] MCHC (RBC) [Mass/Vol] 32.6 g/dL Normal 30.5-36.0 [facility] Comment on above: Order Comment: Speci men Type: BLOOD SPECIMENOrdering Facility: [facility] Address: [address] [place] [address] Performed By: #### 5 7021-8 ####[facility] LABORATORYCLIA [id number] [address] [place] MCV (RBC) [Entitic vol] 95.0 fL Normal 80.0-100.0 [facility] Comment on above: Order Comment: Speci men Type: BLOOD SPECIMENOrdering Facility: [facility] Address: [address] [place] [address] Performed By: #### 5 7021-8 ####[facility] LABORATORYCLIA [id number] [address] [place] Monocytes (Bld) [#/Vol] 1.70 10*3/uL High <0.87 [facility] Comment on above: Order Comment: Speci men Type: BLOOD SPECIMENOrdering Facility: [facility] Address: [address] [place], [place] [address] Performed By: #### 5 7021-8 ####[facility] LABORATORYCLIA [id number] [place] [address] [place] Monocytes/100 WBC (Bld) 12.1 % Normal [facility] Comment on above: Order Comment: Speci men Type: BLOOD SPECIMENOrdering Facility: [facility] Address: [address] [place], [place] [address] Performed By: #### 5 7021-8 ####[facility] LABORATORYCLIA [id number] [place] [address] [place] Neutrophils (Bld) [#/Vol] 10.94 10*3/uL High 1.45-7.50 [facility] Comment on above: Order Comment: Speci men Type: BLOOD SPECIMENOrdering Facility: [facility] Address: [address] [place], [place] [address] Performed By: #### 5 7021-8 ####[facility] LABORATORYCLIA [id number] [place] [address] [place] Neutrophils/100 WBC (Bld) 77.7 % Normal [facility] Comment on above: Order Comment: Speci men Type: BLOOD SPECIMENOrdering Facility: [facility] Address: [address] [place], [place] [address] Performed By: #### 5 7021-8 ####[facility] LABORATORYCLIA [id number] [place] [address] [place] Nucleated RBC (Bld) [#/Vol] 0.04 10*3/uL High <0.01 [facility] Comment on above: Order Comment: Speci men Type: BLOOD SPECIMENOrdering Facility: [facility] Address: [address] [place], [place] [address] Performed By: #### 5 7021-8 ####[facility] LABORATORYCLIA [id number] [place] [address] [place] Nucleated RBC/100 WBC (Bld) [Ratio] 0.3 /100 WBC Normal [facility] Comment on above: Order Comment: Speci men Type: BLOOD SPECIMENOrdering Facility: [facility] Address: [address] [place] [address] Performed By: #### 5 7021-8 ####[facility] LABORATORYCLIA [id number] [place] [address] [place] Platelet mean volume (Bld) [Entitic vol] 9.3 fL Normal 9.0-12.7 [facility] Comment on above: Order Comment: Speci men Type: BLOOD SPECIMENOrdering Facility: [facility] Address: [address] [place] [address] Performed By: #### 5 7021-8 ####[facility] LABORATORYIA [id number] [place] [address] [place] Platelets (Bld) [#/Vol] 233 10*3/uL Normal 150-400 [facility] Comment on above: Order Comment: Speci men Type: BLOOD SPECIMENOrdering Facility: [facility] Address: [address] [place] [address] Performed By: #### 5 7021-8 ####[facility] LABORATORYIA [id number] [place] [address] [place] RBC (Bld) [#/Vol] 2.78 10*6/uL Low 4.20-6.00 [facility] Comment on above: Order Comment: Speci men Type: BLOOD SPECIMENOrdering Facility: [facility] Address: [address] [place] [address] Performed By: #### 5 7021-8 ####[facility] LABORATORYCLIA [id number] [place] [address] [place] WBC (Bld) [#/Vol] 14.06 10*3/uL High 3.70-11.00 [facility] Comment on above: Order Comment: Speci men Type: BLOOD SPECIMENOrdering Facility: [facility] Address: [address] [place], [place] [address] Performed By: #### 5 7021-8 ####[facility] LABORATORYCLIA [id number] [place] [id number] [place] Calcium.ionized [Moles/Vol]o n 04-30-2022 Calcium.ionized (Bld) [Mass/Vol] 1.06 mmol/L Low 1.16-1.32 [facility] Comment on above: Order Comment: Speci men Type: BLOOD SPECIMENOrdering Facility: [facility] Address: [address] [place] [address] Performed By: #### 1 995-0 ####[facility] LABORATORYCLIA [id number] [place] [address] [place] Magnesium SerPl-ncon 04-30 Magnesium [Mass/Vol] 2.1 mg/dL Normal 1.6-2.6 [facility] Comment on above: Order Comment: Speci men Type: BLOOD SPECIMENOrdering Facility: [facility] Address: [address] [place] [address] Performed By: #### 2 4321-2, , 27702-24 ####[facility] LABORATORYCLIA [id number] [place] [address] [place] NURSING PROGon 04-30-2022 NURSING PROG Normal [facility] Phosphate SerPl-mCncon 04-30 Phosphate [Mass/Vol] 3.3 mg/dL Normal 2.5-4.9 [facility] Comment on above: Order Comment: Speci [facility] Type: BLOOD SPECIMENOrdering Facility: [facility] Address: [address] [place], [place] [address] Result Comment: Elev ated m-protein (paraprotein) levels in the serum may be exhibited in patients with monoclonal gammopathies, causing falsely elevated inorganic phosphorus results. Performed By: #### 2 4321-2, 22403-4, 2777-1 ####[facility] LABORATORYCLIA [id number] [place] [id number] [place] XR CHEST 1V FRONTALon 2021 XR CHEST 1V FRONTAL Normal [facility] Basic metabolic 2000 panelon 04-29-2022 Anion gap [Moles/Vol] 14 mmol/L Normal 5-16 [facility] Comment on above: Order Comment: Speci men Type: BLOOD SPECIMENOrdering Facility: [facility] Address: [address] [place] [address] Performed By: #### 2 432-2, ####[facility] LABORATORYCLIA [id number] [place] [id number] [place] Calcium [Mass/Vol] 8.7 mg/dL Normal 8.5-10.5 [facility] Comment on above: Order Comment: Speci men Type: BLOOD SPECIMENOrdering Facility: [facility] Address: [address] [place] [address] Performed By: #### 2 43208-28, ####[facility] LABORATORYCLIA [id number] [place] [address] [place] Chloride [Moles/Vol] 97 mmol/L Low 98-107 [facility] Comment on above: Order Comment: Speci men Type: BLOOD SPECIMENOrdering Facility: [facility] Address: [address] [place] [address] Performed By: #### 2 4322, ####[facility] LABORATORYCLIA [id number] [place] [id number] [place] CO2 [Moles/Vol] 25 mmol/L Normal 21-32 [facility] Comment on above: Order Comment: Speci men Type: BLOOD SPECIMENOrdering Facility: [facility] Address: [address] [place] [address] Performed By: #### 2 4322, ####[facility] LABORATORYCLIA [id number] [place] [id number] [place] Creatinine [Mass/Vol] 5.91 mg/dL High 0.50-1.40 [facility] Comment on above: Order Comment: Kelsi huff Type: BLOOD SPECIMENOrdering Facility: [facility] Address: [address] [place] [address] Result Comment: Macrina ents receiving either N-Acetylcysteine (NAC) or Metamizole prior to venipuncture, may have falsely depressed results. Performed By: #### 2 4321-2, ####[facility] LABORATORYCLIA [id number] [address] [place] ESTIMATED GLOMERULAR FILTRATION RATE 10 mL/min/1.73m??? Low >=60 [facility] Comment on above: Order Comment: Kelsi huff Type: BLOOD SPECIMENOrdering Facility: [facility] Address: [address] [place] [address] Result Comment: Caryl mated Glomerular Filtration Rate (eGFR) is calculated using the 2020 CKD-EPI creatinine equation. This equation utilizes serum creatinine, sex, and age as parameters. The creatinine assay has traceable calibration to isotope dilution-mass spectrometry. Refer to KDIGO guidelines for clinical interpretation. In patients with unstable renal function, e.g. those with acute kidney injury, the eGFR may not accurately reflect actual GFR. Performed By: #### 2 4321-2, ####[facility] LABORATORYCLIA [id number] [place] [address] [place] Glucose [Mass/Vol] 225 mg/dL High 70-100 [facility] Comment on above: Order Comment: Kelsi huff Type: BLOOD SPECIMENOrdering Facility: [facility] Address: [address] [place] [address] Result Comment: The [place] [employer] (ADA) provides guidance for cutoff values for fasting glucose and random glucose. The ADA defines fasting as no caloric intake for at least 8 hours. Fasting plasma glucose results between 100 to 125 mg/dL indicate increased risk for diabetes (prediabetes).Fasting plasma glucose results greater than or equal to 126 mg/dL meet the criteria for diagnosis of diabetes. In the absence of unequivocal hyperglycemia, results should be confirmed by repeat testing. In a patient with classic symptoms of hyperglycemia or hyperglycemic crisis, random plasma glucose results greater than or equal to 200 mg/dL meet the criteria for diagnosis of diabetes.Reference: Standards of Medical Care in Diabetes 2016, [place] [employer]. Diabetes Care. 2016.39(Suppl 1).Results may be falsely elevated after the administration of Sulfapyridine.Results may be falsely depressed after the administration of Sulfasalazine. Performed By: #### 2 432-2, 46437-6 ####[facility] LABORATORYCLIA [id number] [place] [address] [place] Potassium [Moles/Vol] 4.6 mmol/L Normal 3.5-5.1 [facility] Comment on above: Order Comment: Kelsi huff Type: BLOOD SPECIMENOrdering Facility: [facility] Address: [address] [place] [address] Performed By: #### 2 43208-28, ####[facility] LABORATORYCLIA [id number] [address] [place] Sodium [Moles/Vol] 136 mmol/L Normal 136-145 [facility] Comment on above: Order Comment: Kelsi huff Type: BLOOD SPECIMENOrdering Facility: [facility] Address: [address] [place] [address] Performed By: #### 2 43208-28, ####[facility] LABORATORYCLIA [id number] [place] [address] [place] Urea nitrogen [Mass/Vol] 71 mg/dL High 7-26 [facility] Comment on above: Order Comment: Samanthai daria Type: BLOOD SPECIMENOrdering Facility: [facility] Address: [address] [place] [address] Performed By: #### 2 4322, ####[facility] LABORATORYCLIA [id number] [place] [address] [place] CBC W Auto Differential pane l (Bld)on 04-29-2022 Basophils (Bld) [#/Vol] 0.04 10*3/uL Normal <0.11 [facility] Comment on above: Order Comment: Speci men Type: BLOOD SPECIMENOrdering Facility: [facility] Address: [address] [place] [address] Performed By: #### 5 7021-8 ####[facility] LABORATORYCLIA [id number] [place] [address] [place] Basophils/100 WBC (Bld) 0.2 % Normal [facility] Comment on above: Order Comment: Speci men Type: BLOOD SPECIMENOrdering Facility: [facility] Address: [address] [place] [address] Performed By: #### 5 7021-8 ####[facility] LABORATORYCLIA [id number] [address] [place] Differential cell count method Nom (Bld) Auto Normal [facility] Comment on above: Order Comment: Speci men Type: BLOOD SPECIMENOrdering Facility: [facility] Address: [address] [place] [address] Performed By: #### 5 7021-8 ####[facility] LABORATORYCLIA [id number] [place] [address] [place] Eosinophils (Bld) [#/Vol] 0.12 10*3/uL Normal <0.46 [facility] Comment on above: Order Comment: Speci men Type: BLOOD SPECIMENOrdering Facility: [facility] Address: [address] [place] [address] Performed By: #### 5 7021-8 ####[facility] LABORATORYCLIA [id number] [place] [address] [place] Eosinophils/100 WBC (Bld) 0.6 % Normal [facility] Comment on above: Order Comment: Speci men Type: BLOOD SPECIMENOrdering Facility: [facility] Address: [address] [place] [address] Performed By: #### 5 7021-8 ####[facility] LABORATORYCLIA [id number] [place] [address] [place] Erythrocyte distribution width (RBC) [Ratio] 15.6 % High 11.5-15.0 [facility] Comment on above: Order Comment: Speci men Type: BLOOD SPECIMENOrdering Facility: [facility] Address: [address] [place] [address] Performed By: #### 5 7021-8 ####[facility] LABORATORYCLIA [id number] [place] [address] [place] Hematocrit (Bld) [Volume fraction] 28.2 % Low 39.0-51.0 [facility] Comment on above: Order Comment: Speci men Type: BLOOD SPECIMENOrdering Facility: [facility] Address: [address] [place] [address] Performed By: #### 5 7021-8 ####[facility] LABORATORYCLIA [id number] [place] [address] [place] Hemoglobin (Bld) [Mass/Vol] 9.1 g/dL Low 13.0-17.0 [facility] Comment on above: Order Comment: Speci men Type: BLOOD SPECIMENOrdering Facility: [facility] Address: [address] [place] [address] Performed By: #### 5 7021-8 ####[facility] LABORATORYCLIA [id number] [place] [address] [place] IMMATURE GRAN % 1.2 % Normal [facility] Comment on above: Order Comment: Speci men Type: BLOOD SPECIMENOrdering Facility: [facility] Address: [address] [place] [address] Performed By: #### 5 7021-8 ####[facility] LABORATORYCLIA [id number] [place] [address] [place] IMMATURE GRAN ABS 0.23 k/uL High <0.10 [facility] Comment on above: Order Comment: Speci men Type: BLOOD SPECIMENOrdering Facility: [facility] Address: [address] [place] [address] Performed By: #### 5 7021-8 ####[facility] LABORATORYCLIA [id number] [place] [address] [place] Lymphocytes (Bld) [#/Vol] 0.68 10*3/uL Low 1.00-4.00 [facility] Comment on above: Order Comment: Speci men Type: BLOOD SPECIMENOrdering Facility: [facility] Address: [address] [place] [address] Performed By: #### 5 7021-8 ####[facility] LABORATORYCLIA [id number] [address] [place] Lymphocytes/100 WBC (Bld) 3.6 % Normal [facility] Comment on above: Order Comment: Speci men Type: BLOOD SPECIMENOrdering Facility: [facility] Address: [address] [place] [address] Performed By: #### 5 7021-8 ####[facility] LABORATORYCLIA [id number] [place] [address] [place] MCH (RBC) [Entitic mass] 30.7 pg Normal 26.0-34.0 [facility] Comment on above: Order Comment: Speci men Type: BLOOD SPECIMENOrdering Facility: [facility] Address: [address] [place] [address] Performed By: #### 5 7021-8 ####[facility] LABORATORYCLIA [id number] [place] [address] [place] MCHC (RBC) [Mass/Vol] 32.3 g/dL Normal 30.5-36.0 [facility] Comment on above: Order Comment: Speci men Type: BLOOD SPECIMENOrdering Facility: [facility] Address: [address] [place] [address] Performed By: #### 5 7021-8 ####[facility] LABORATORYCLIA [id number] [address] [place] MCV (RBC) [Entitic vol] 95.3 fL Normal 80.0-100.0 [facility] Comment on above: Order Comment: Speci men Type: BLOOD SPECIMENOrdering Facility: [facility] Address: [address] [place], [place] [address] Performed By: #### 5 7021-8 ####[facility] LABORATORYCLIA [id number] [place] [address] [place] Monocytes (Bld) [#/Vol] 1.30 10*3/uL High <0.87 [facility] Comment on above: Order Comment: Speci men Type: BLOOD SPECIMENOrdering Facility: [facility] Address: [address] [place], [place] [address] Performed By: #### 5 7021-8 ####[facility] LABORATORYCLIA [id number] [place] [address] [place] Monocytes/100 WBC (Bld) 6.8 % Normal [facility] Comment on above: Order Comment: Speci men Type: BLOOD SPECIMENOrdering Facility: [facility] Address: [address] [place], [place] [address] Performed By: #### 5 7021-8 ####[facility] LABORATORYCLIA [id number] [place] [address] [place] Neutrophils (Bld) [#/Vol] 16.77 10*3/uL High 1.45-7.50 [facility] Comment on above: Order Comment: Speci men Type: BLOOD SPECIMENOrdering Facility: [facility] Address: [address] [place], [place] [address] Performed By: #### 5 7021-8 ####[facility] LABORATORYCLIA [id number] [place] [address] [place] Neutrophils/100 WBC (Bld) 87.6 % Normal [facility] Comment on above: Order Comment: Speci men Type: BLOOD SPECIMENOrdering Facility: [facility] Address: [address] [place], [place] [address] Performed By: #### 5 7021-8 ####[facility] LABORATORYCLIA [id number] [place] [address] [place] Nucleated RBC (Bld) [#/Vol] 0.03 10*3/uL High <0.01 [facility] Comment on above: Order Comment: Speci men Type: BLOOD SPECIMENOrdering Facility: [facility] Address: [address] [place] [address] Performed By: #### 5 7021-8 ####[facility] LABORATORYCLIA [id number] [place] [address] [place] Nucleated RBC/100 WBC (Bld) [Ratio] 0.2 /100 WBC Normal [facility] Comment on above: Order Comment: Speci men Type: BLOOD SPECIMENOrdering Facility: [facility] Address: [address] [place] [address] Performed By: #### 5 7021-8 ####[facility] LABORATORYCLIA [id number] [place] [address] [place] Platelet mean volume (Bld) [Entitic vol] 9.7 fL Normal 9.0-12.7 [facility] Comment on above: Order Comment: Speci men Type: BLOOD SPECIMENOrdering Facility: [facility] Address: [address] [place] [address] Performed By: #### 5 7021-8 ####[facility] LABORATORYCLIA [id number] [place] [address] [place] Platelets (Bld) [#/Vol] 215 10*3/uL Normal 150-400 [facility] Comment on above: Order Comment: Speci men Type: BLOOD SPECIMENOrdering Facility: [facility] Address: [address] [place], [place] [address] Performed By: #### 5 7021-8 ####[facility] LABORATORYCLIA [id number] [place] [address] [place] RBC (Bld) [#/Vol] 2.96 10*6/uL Low 4.20-6.00 [facility] Comment on above: Order Comment: Speci men Type: BLOOD SPECIMENOrdering Facility: [facility] Address: [address] [place], [place] [address] Performed By: #### 5 7021-8 ####[facility] LABORATORYCLIA [id number] [place] [address] [place] WBC (Bld) [#/Vol] 19.14 10*3/uL High 3.70-11.00 [facility] Comment on above: Order Comment: Speci men Type: BLOOD SPECIMENOrdering Facility: [facility] Address: [address] [place] [place] [address] Performed By: #### 5 7021-8 ####[facility] LABORATORYCLIA [id number] [place] [address] [place] Magnesium SerPl-mCncon 04-29 Magnesium [Mass/Vol] 2.8 mg/dL High 1.6-2.6 [facility] Comment on above: Order Comment: Speci men Type: BLOOD SPECIMENOrdering Facility: [facility] Address: [address] [place] [place] [address] Performed By: #### 2 4321-2, 71319-4 ####[facility] LABORATORYCLIA [id number] [address] [place] ANES POSTPROC EVALon 022 ANES POSTPROC EVAL Normal [facility] ANES PRE-OPon 04-28-2022 ANES PRE-OP Normal [facility] CASE MANAGEMon 04-28-2022 CASE MANAGEM Normal [facility] CBC W Auto Differential pane l (Bld)on 04-28-2022 Band form neutrophils/100 WBC (Bld) 0.0 % [facility] Comment on above: Order Comment: Speci men Type: BLOOD SPECIMENOrdering Facility: [facility] Address: [address] [place] [address] Performed By: #### 5 7021-8 ####[facility] LABORATORYCLIA [id number] [place] [address] [place] Basophils/100 WBC (Bld) 0.0 % [facility] Comment on above: Order Comment: Speci men Type: BLOOD SPECIMENOrdering Facility: [facility] Address: [address] [place] [address] Performed By: #### 5 7021-8 ####[facility] LABORATORYCLIA [id number] [place] [address] [place] BLAST% 0.0 % Normal <=0.0 [facility] Comment on above: Order Comment: Speci men Type: BLOOD SPECIMENOrdering Facility: [facility] Address: [address] [place] [address] Performed By: #### 5 7021-8 ####[facility] LABORATORYCLIA [id number] [address] [place] Differential cell count method Nom (Bld) Manual Normal [facility] Comment on above: Order Comment: Speci men Type: BLOOD SPECIMENOrdering Facility: [facility] Address: [address] [place] [address] Performed By: #### 5 7021-8 ####[facility] LABORATORYCLIA [id number] [place] [address] [place] Eosinophils (Bld) [#/Vol] 0.18 10*3/uL Normal <0.46 [facility] Comment on above: Order Comment: Speci men Type: BLOOD SPECIMENOrdering Facility: [facility] Address: [address] [place] [address] Performed By: #### 5 7021-8 ####[facility] LABORATORYCLIA [id number] [place] [address] [place] Eosinophils/100 WBC (Bld) 1.0 % Normal [facility] Comment on above: Order Comment: Speci men Type: BLOOD SPECIMENOrdering Facility: [facility] Address: [address] [place] [address] Performed By: #### 5 7021-8 ####[facility] LABORATORYCLIA [id number] [place] [address] [place] Erythrocyte distribution width (RBC) [Ratio] 16.2 % High 11.5-15.0 [facility] Comment on above: Order Comment: Speci men Type: BLOOD SPECIMENOrdering Facility: [facility] Address: [address] [place], [place] [address] Performed By: #### 5 7021-8 ####[facility] LABORATORYCLIA [id number] [place] [address] [place] Hematocrit (Bld) [Volume fraction] 27.2 % Low 39.0-51.0 [facility] Comment on above: Order Comment: Speci men Type: BLOOD SPECIMENOrdering Facility: [facility] Address: [address] [place], [place] [address] Performed By: #### 5 7021-8 ####[facility] LABORATORYCLIA [id number] [place] [address] [place] Hemoglobin (Bld) [Mass/Vol] 8.8 g/dL Low 13.0-17.0 [facility] Comment on above: Order Comment: Speci men Type: BLOOD SPECIMENOrdering Facility: [facility] Address: [address] [place], [place] [address] Performed By: #### 5 7021-8 ####[facility] LABORATORYCLIA [id number] [place] [address] [place] Lymphocytes (Bld) [#/Vol] 1.08 10*3/uL Normal 1.00-4.00 [facility] Comment on above: Order Comment: Speci men Type: BLOOD SPECIMENOrdering Facility: [facility] Address: [address] [place], [place] [address] Performed By: #### 5 7021-8 ####[facility] LABORATORYCLIA [id number] [place] [address] [place] Lymphocytes/100 WBC (Bld) 6.0 % Normal [facility] Comment on above: Order Comment: Speci men Type: BLOOD SPECIMENOrdering Facility: [facility] Address: [address] [place], [place] [address] Performed By: #### 5 7021-8 ####[facility] LABORATORYCLIA [id number] [address] [place] Lymphocytes/100 WBC (Bld) 0.0 % Normal [facility] Comment on above: Order Comment: Speci men Type: BLOOD SPECIMENOrdering Facility: [facility] Address: [address] [place] [address] Performed By: #### 5 7021-8 ####[facility] LABORATORYCLIA [id number] [address] LYMPHOMA CELL 0.0 % Normal [facility] Comment on above: Order Comment: Speci men Type: BLOOD SPECIMENOrdering Facility: [facility] Address: [address] [place] [address] Performed By: #### 5 7021-8 ####[facility] LABORATORYCLIA [id number] [address] [place] MCH (RBC) [Entitic mass] 31.3 pg Normal 26.0-34.0 [facility] Comment on above: Order Comment: Speci men Type: BLOOD SPECIMENOrdering Facility: [facility] Address: [address] [place] [address] Performed By: #### 5 7021-8 ####[facility] LABORATORYCLIA [id number] [address] [place] MCHC (RBC) [Mass/Vol] 32.4 g/dL Normal 30.5-36.0 [facility] Comment on above: Order Comment: Speci men Type: BLOOD SPECIMENOrdering Facility: [facility] Address: [address] [address] Performed By: #### 5 7021-8 ####[facility] LABORATORYCLIA [id number] [address] [facility] MCV (RBC) [Entitic vol] 96.8 fL Normal 80.0-100.0 [facility] Comment on above: Order Comment: Speci men Type: BLOOD SPECIMENOrdering Facility: [facility] Address: [address] [place] [address] Performed By: #### 5 7021-8 ####[facility] LABORATORYCLIA [id number] [address] [place] MEGAKARYOCYTIC FRAGMENTS 0.0 /100 WBC Normal [facility] Comment on above: Order Comment: Speci men Type: BLOOD SPECIMENOrdering Facility: [facility] Address: [address] [place] [address] Performed By: #### 5 7021-8 ####[facility] LABORATORYCLIA [id number] [address] [place] Metamyelocytes/100 WBC (Bld) 0.0 % Normal [facility] Comment on above: Order Comment: Speci men Type: BLOOD SPECIMENOrdering Facility: [facility] Address: [address] [place] [address] Performed By: #### 5 7021-8 ####[facility] LABORATORYCLIA [id number] [place] [address] [place] MYELO% 0.0 % Normal [facility] Comment on above: Order Comment: Speci men Type: BLOOD SPECIMENOrdering Facility: [facility] Address: [address] [place] [address] Performed By: #### 5 7021-8 ####[facility] LABORATORYCLIA [id number] [place] [address] [place] Neutrophils (Bld) [#/Vol] 16.08 10*3/uL High 1.45-7.50 [facility] Comment on above: Order Comment: Speci men Type: BLOOD SPECIMENOrdering Facility: [facility] Address: [address] [place] [address] Performed By: #### 5 7021-8 ####[facility] LABORATORYCLIA [id number] [place] [address] [place] [place] Neutrophils/100 WBC (Bld) 89.0 % Normal [facility] Comment on above: Order Comment: Speci men Type: BLOOD SPECIMENOrdering Facility: [facility] Address: [address] [place] [address] Performed By: #### 5 7021-8 ####[facility] LABORATORYCLIA [id number] [address] Nucleated RBC/100 WBC (Bld) [Ratio] 0.0 /100 WBC Normal [facility] Comment on above: Order Comment: Speci men Type: BLOOD SPECIMENOrdering Facility: [facility] Address: [address] [place] [address] Performed By: #### 5 7021-8 ####[facility] LABORATORYCLIA [id number] [address] OTHER CELLS 0.0 % Normal [facility] Comment on above: Order Comment: Speci men Type: BLOOD SPECIMENOrdering Facility: [facility] Address: [address] [place] [address] Performed By: #### 5 7021-8 ####[facility] LABORATORYCLIA [id number] [address] STATES [facility] PLASMA CELLS 0.0 % Normal [facility] Comment on above: Order Comment: Speci men Type: BLOOD SPECIMENOrdering Facility: [facility] Address: [address] [place] [address] Performed By: #### 5 7021-8 ####[facility] LABORATORYCLIA [id number] [address] [place] PLATELET ESTIMATE Adequate Normal [facility] Comment on above: Order Comment: Speci men Type: BLOOD SPECIMENOrdering Facility: [facility] Address: [address] [place] [address] Performed By: #### 5 7021-8 ####[facility] LABORATORYCLIA [id number] [address] [place] Platelet mean volume (Bld) [Entitic vol] 9.5 fL Normal 9.0-12.7 [facility] Comment on above: Order Comment: Speci men Type: BLOOD SPECIMENOrdering Facility: [facility] Address: [address] [place] [address] Performed By: #### 5 7021-8 ####[facility] LABORATORYCLIA [id number] [address] Platelets (Bld) [#/Vol] 177 10*3/uL Normal 150-400 [facility] Comment on above: Order Comment: Speci men Type: BLOOD SPECIMENOrdering Facility: [facility] Address: [address] [place] [address] Performed By: #### 5 7021-8 ####[facility] LABORATORYCLIA [id number] [address] Polychromasia LM Ql (Bld) Slight Normal [facility] Comment on above: Order Comment: Speci men Type: BLOOD SPECIMENOrdering Facility: [facility] Address: [address] [place] [address] Performed By: #### 5 7021-8 ####[facility] LABORATORYCLIA [id number] [address] OF [facility] PROMYL% 0.0 % Normal [facility] Comment on above: Order Comment: Speci men Type: BLOOD SPECIMENOrdering Facility: [facility] Address: [address] [place] [address] Performed By: #### 5 7021-8 ####[facility] LABORATORYCLIA [id number] [place] [address] [place] RBC (Bld) [#/Vol] 2.81 10*6/uL Low 4.20-6.00 [facility] Comment on above: Order Comment: Speci men Type: BLOOD SPECIMENOrdering Facility: [facility] Address: [address] [place] [address] Performed By: #### 5 7021-8 ####[facility] LABORATORYCLIA [id number] [address] [place] RED CELL MORPH Reviewed: see result s of individual morphologies Normal [facility] Comment on above: Order Comment: Speci men Type: BLOOD SPECIMENOrdering Facility: [facility] Address: [address] [place] [address] Performed By: #### 5 7021-8 ####[facility] LABORATORYCLIA [id number] [place] [address] [place] Variant lymphocytes/100 WBC (Bld) 0.0 % Normal [facility] Comment on above: Order Comment: Speci men Type: BLOOD SPECIMENOrdering Facility: [facility] Address: [address] [place] [address] Performed By: #### 5 7021-8 ####[facility] LABORATORYCLIA [id number] [address] OF [facility] WAM - ABS [place] 0.00 k/uL Normal <0.11 [facility] Comment on above: Order Comment: Speci men Type: BLOOD SPECIMENOrdering Facility: [facility] Address: [address] [place] [address] Performed By: #### 5 7021-8 ####[facility] LABORATORYCLIA [id number] [address] OF [place] WAM - ABS MONO 0.72 k/uL Normal <0.87 [facility] Comment on above: Order Comment: Speci men Type: BLOOD SPECIMENOrdering Facility: [facility] Address: [address] [place] [address] Performed By: #### 5 7021-8 ####[facility] LABORATORYCLIA [id number] [address] [place] WAM - MONO% 4.0 % Normal [facility] Comment on above: Order Comment: Speci men Type: BLOOD SPECIMENOrdering Facility: [facility] Address: [address] [place] [address] Performed By: #### 5 7021-8 ####[facility] LABORATORYCLIA [id number] [address] [place] WAM ABSOLUTE NRBC <0.01 Normal <0.01 [facility] Comment on above: Order Comment: Speci men Type: BLOOD SPECIMENOrdering Facility: [facility] Address: [address] [place] [address] Performed By: #### 5 7021-8 ####[facility] LABORATORYCLIA [id number] [place] [id number] [place] WBC (Bld) [#/Vol] 18.07 10*3/uL High 3.70-11.00 [facility] Comment on above: Order Comment: Speci men Type: BLOOD SPECIMENOrdering Facility: [facility] Address: [address] [place] [address] Performed By: #### 5 7021-8 ####[facility] LABORATORYCLIA [id number] [place] [address] [place] Calcium.ionized [Moles/Vol]o n 04-28-2022 Calcium.ionized (Bld) [Mass/Vol] 1.10 mmol/L Low 1.16-1.32 [facility] Comment on above: Order Comment: Speci men Type: BLOOD SPECIMENOrdering Facility: [facility] Address: [address] [place] [address] Performed By: #### 1 995-0 ####[facility] LABORATORYCLIA [id number] [place] [id number] [place] Comprehensive metabolic 2000 panelon 04-28-2022 Albumin [Mass/Vol] 2.9 g/dL Low 3.2-5.0 [facility] Comment on above: Order Comment: Speci men Type: BLOOD SPECIMENOrdering Facility: [facility] Address: [address] [place] [address] Performed By: #### 2 4323-8, 58538-6, 2777-1 ####[facility] LABORATORYCLIA [id number] [place] [id number] [place] ALP [Catalytic activity/Vol] 107 U/L Normal 45-117 [facility] Comment on above: Order Comment: Speci men Type: BLOOD SPECIMENOrdering Facility: [facility] Address: [address] [place], [place] [address] Performed By: #### 2 4323-8, , 2776-08 ####[facility] LABORATORYCLIA [id number] [place] [id number] [place] ALT [Catalytic activity/Vol] 38 U/L Normal 13-61 [facility] Comment on above: Order Comment: Speci men Type: BLOOD SPECIMENOrdering Facility: [facility] Address: [address] [place], [place] [address] Result Comment: Resu lts may be falsely depressed after the administration of Sulfasalazine and/or Sulfapyridine. Performed By: #### 2 4323-8, , 2776-08 ####[facility] LABORATORYCLIA [id number] [place] [id number] [place] [facility] Anion gap [Moles/Vol] 13 mmol/L Normal 5-16 [facility] Comment on above: Order Comment: Speci men Type: BLOOD SPECIMENOrdering Facility: [facility] Address: [address] [place], [place] [address] Performed By: #### 2 4323-8, , 2776-08 ####[facility] LABORATORYCLIA [id number] [place] [address] [place] AST [Catalytic activity/Vol] 39 U/L High 8-34 [facility] Comment on above: Order Comment: Speci [facility] Type: BLOOD SPECIMENOrdering Facility: [facility] Address: [address] [place], [place] [address] Result Comment: Resu lts may be falsely depressed after the administration of Sulfasalazine and/or Sulfapyridine. Performed By: #### 2 4323-8, , 2776-08 ####[facility] LABORATORYCLIA [id number] [place] [id number] [place] Bilirubin [Mass/Vol] 1.0 mg/dL Normal 0.2-1.0 [facility] Comment on above: Order Comment: Speci men Type: BLOOD SPECIMENOrdering Facility: [facility] Address: [address] Performed By: #### 2 4323-8, , 2776-08 ####[facility] LABORATORYCLIA [id number] [place] [id number] [place] Calcium [Mass/Vol] 9.3 mg/dL Normal 8.5-10.5 [facility] Comment on above: Order Comment: Speci men Type: BLOOD SPECIMENOrdering Facility: [facility] Address: [address] [place], [place] [address] Performed By: #### 2 4323-8, , 2776-08 ####[facility] LABORATORYCLIA [id number] [place] [address] [place] Chloride [Moles/Vol] 99 mmol/L Normal 98-107 [facility] Comment on above: Order Comment: Speci men Type: BLOOD SPECIMENOrdering Facility: [facility] Address: [facility] [address] Performed By: #### 2 4323-8, , 2776-08 ####[facility] LABORATORYCLIA [id number] [place] [address] [place] CO2 [Moles/Vol] 27 mmol/L Normal 21-32 [facility] Comment on above: Order Comment: Speci men Type: BLOOD SPECIMENOrdering Facility: [facility] Address: [address] Performed By: #### 2 4323-8, , 2776-08 ####[facility] LABORATORYCLIA [id number] [place] [address] [place] Creatinine [Mass/Vol] 4.26 mg/dL High 0.50-1.40 [facility] Comment on above: Order Comment: Speci men Type: BLOOD SPECIMENOrdering Facility: [facility] Address: [address] [id number] Result Comment: Macrina ents receiving either N-Acetylcysteine (NAC) or Metamizole prior to venipuncture, may have falsely depressed results. Performed By: #### 2 4323-8, 56778-7, 2776-08 ####[facility] LABORATORYCLIA [id number] [place] [id number] [place] ESTIMATED GLOMERULAR FILTRATION RATE 15 mL/min/1.73m??? Low >=60 [facility] Comment on above: Order Comment: Kelsi huff Type: BLOOD SPECIMENOrdering Facility: [facility] Address: [address] [place] [phone] Result Comment: Caryl mated Glomerular Filtration Rate (eGFR) is calculated using the 2020 CKD-EPI creatinine equation. This equation utilizes serum creatinine, sex, and age as parameters. The creatinine assay has traceable calibration to isotope dilution-mass spectrometry. Refer to KDIGO guidelines for clinical interpretation. In patients with unstable renal function, e.g. those with acute kidney injury, the eGFR may not accurately reflect actual GFR. Performed By: #### 2 4323-8, 26448-6, 2776-08 ####[facility] LABORATORYCLIA [id number] [place] [address] [place] Glucose [Mass/Vol] 112 mg/dL High 70-100 [facility] Comment on above: Order Comment: Kelsi huff Type: BLOOD SPECIMENOrdering Facility: [facility] Address: [address] [place] [phone] Result Comment: The [place] [employer] (ADA) provides guidance for cutoff values for fasting glucose and random glucose. The ADA defines fasting as no caloric intake for at least 8 hours. Fasting plasma glucose results between 100 to 125 mg/dL indicate increased risk for diabetes (prediabetes).Fasting plasma glucose results greater than or equal to 126 mg/dL meet the criteria for diagnosis of diabetes. In the absence of unequivocal hyperglycemia, results should be confirmed by repeat testing. In a patient with classic symptoms of hyperglycemia or hyperglycemic crisis, random plasma glucose results greater than or equal to 200 mg/dL meet the criteria for diagnosis of diabetes.Reference: Standards of Medical Care in Diabetes 2016, [place] [employer]. Diabetes Care. 2016.39(Suppl 1).Results may be falsely elevated after the administration of Sulfapyridine.Results may be falsely depressed after the administration of Sulfasalazine. Performed By: #### 2 4323-8, , 2776-08 ####[facility] LABORATORYCLIA [id number] [place] [id number] [place] Potassium [Moles/Vol] 4.0 mmol/L Normal 3.5-5.1 [facility] Comment on above: Order Comment: Speci men Type: BLOOD SPECIMENOrdering Facility: [facility] Address: [address] [place] [address] Performed By: #### 2 4323-8, , 2776-08 ####[facility] LABORATORYCLIA [id number] [place] [id number] [place] Protein [Mass/Vol] 6.0 g/dL Normal 6.0-8.5 [facility] Comment on above: Order Comment: Speci men Type: BLOOD SPECIMENOrdering Facility: [facility] Address: [address] [place] [address] Performed By: #### 2 4323-8, , 2776-08 ####[facility] LABORATORYCLIA [id number] [place] [id number] [place] Sodium [Moles/Vol] 139 mmol/L Normal 136-145 [facility] Comment on above: Order Comment: Speci men Type: BLOOD SPECIMENOrdering Facility: [facility] Address: [address] [place] [phone] Performed By: #### 2 4323-8, , 2776-08 ####[facility] LABORATORYCLIA [id number] [place] [id number] [place] Urea nitrogen [Mass/Vol] 46 mg/dL High 7-26 [facility] Comment on above: Order Comment: Speci men Type: BLOOD SPECIMENOrdering Facility: [facility] Address: [address] [place] [address] Performed By: #### 2 4323-8, 63475-0, 2777-1 ####[facility] LABORATORYCLIA [id number] [place] [id number] [facility] Magnesium SerPl-mCncon 04-28 Magnesium [Mass/Vol] 2.3 mg/dL Normal 1.6-2.6 [facility] Comment on above: Order Comment: Kelsi huff Type: BLOOD SPECIMENOrdering Facility: [facility] Address: [address] [place] [address] Performed By: #### 2 4323-8, 33724-3, 2777-1 ####[facility] LABORATORYCLIA [id number] [place] [id number] [facility] OPERATIVE NOon 04-28-2022 OPERATIVE NO Normal [facility] PT panel Coag (PPP)on 2021 INR Coag (PPP) [Relative time] 1.0 {INR} Normal 0.9-1.1 [facility] Comment on above: Order Comment: Kelsi huff Type: BLOOD SPECIMENOrdering Facility: [facility] Address: [address] [place] [address] Result Comment: Catherine min K Antagonist (VKA) Therapeutic Range: INR 2 to 3 (Target INR of 2.5)Note: For patients treated with VKA drugs, such as warfarin, the [place] [employer] 2012 Guideline recommends a therapeutic INR range of 2 to 3 (target INR of 2.5). This recommendation includes high-risk patients with antiphospholipid syndrome with previous arterial or venous thromboembolism, current-generation mechanical or bioprosthetic aortic heart valve replacement.Note: Patients with mechanical aortic valve replacement and additional risk factors for thromboembolic events (atrial fibrillation, previous thromboembolism, LV dysfunction, hypercoagulable conditions) or an older generation mechanical AVR (i.e., ball in-Cage) or any mechanical MVR should have a INR therapeutic range of 2.5 to 3.5 (target INR of 3).Indy LOYA, et al. Chest 2012, 141:7S-47SNishmatthew RA, et al. JAC 2017, 70: 252-289 Performed By: #### 3 4528-0, 41460-2 ####[facility] LABORATORYCLIA [id number] [place] [address] [place] PT Coag (PPP) [Time] 11.1 s Normal 9.5-12.0 [facility] Comment on above: Order Comment: Speci men Type: BLOOD SPECIMENOrdering Facility: [facility] Address: [address] [place] [address] Performed By: #### 3 4528-0, 47028-6 ####[facility] LABORATORYCLIA [id number] [address] OF [place] Phosphate SerPl-mCncon 04-28 Phosphate [Mass/Vol] 4.2 mg/dL Normal 2.5-4.9 [facility] Comment on above: Order Comment: Speci men Type: BLOOD SPECIMENOrdering Facility: [facility] Address: [address] [place] [address] Result Comment: Elev ated m-protein (paraprotein) levels in the serum may be exhibited in patients with monoclonal gammopathies, causing falsely elevated inorganic phosphorus results. Performed By: #### 2 4323-8, 05788-6, 2777-1 ####[facility] LABORATORYCLIA [id number] [address] [place] TYPE + SCREENon 04-28-2022 ABO O Normal [facility] Comment on above: Order Comment: Speci men Type: BLOOD SPECIMENOrdering Facility: [facility] Address: [address] [place] [address] Performed By: #### T SCR ####[facility] BLOOD BANKCLIA [id number] [address] [place] HISTORICAL AB SCR STATUS Negative Normal [facility] Comment on above: Order Comment: Speci men Type: BLOOD SPECIMENOrdering Facility: [facility] Address: [address] [place] [address] Performed By: #### T SCR ####[facility] BLOOD BANKCLIA [id number] [address] Rh Nom (Bld) Indeterminate Rh Normal [facility] Comment on above: Order Comment: Speci men Type: BLOOD SPECIMENOrdering Facility: [facility] Address: [address] [place] [address] [place] [address] Result Comment: Macrina ent Received Rh Pos RBCs Performed By: #### T SCR ####[facility] BLOOD BANKCLIA [id number] [address] TYPE AND SCREEN EXPIRATION 05/01/2022 23:59 Normal [facility] Comment on above: Order Comment: Speci men Type: BLOOD SPECIMENOrdering Facility: [facility] Address: [address] [place] [address] Performed By: #### T SCR ####[facility] BLOOD BANKCLIA [id number] [address] OF [facility] XR FLUOROSCOPYon 04-28-2022 XR FLUOROSCOPY Normal [facility] aPTT PPPon 04-28-2022 aPTT Coag (PPP) [Time] 27.9 s Normal 22.0-31.5 [facility] Comment on above: Order Comment: Speci men Type: BLOOD SPECIMENOrdering Facility: [facility] Address: [address] [place] [address] Result Comment: Ther apeutic Heparin Reference Range:High Dose: 46-75 seconds (DVT/PE)Low Dose: 39-60 seconds (Acute Coronary Syndrome)For low molecular weight heparin or danaparoid, monitoring is often NOT necessary, but the heparin assay, Xa inhibition assay (send out) may be used in certain circumstances, as the PTT is generally insensitive to the effect of these agents. Direct thrombin inhibitors are becoming more widely utilized and these drugs are often monitored using the PTT. Performed By: #### 3 4528-0, 11337-8 ####[facility] HOSPITAL LABORATORYCLIA [id number] [address] [place] ALLIED HEALTHon 04-27-2022 ALLIED HEALTH [facility] HEALTH [facility] ARTERIAL BLOOD GASESon 04-27 BASE DEFICIT, ARTERIAL -6 mmol/L Low -2-0 [facility] Comment on above: Order Comment: Speci men Type: ARTERIAL BLOOD SPECIMENOrdering Facility: [facility] Address: [address] [place] [address] Performed By: #### A LLBG ####[facility] RESPIRATORY THERAPYCLIA [id number] [address] Body temperature 98.78 [degF] Normal [facility] Comment on above: Order Comment: Speci men Type: ARTERIAL BLOOD SPECIMENOrdering Facility: [facility] Address: [address] [place] [address] Performed By: #### A LLBG ####[facility] RESPIRATORY THERAPYCLIA [id number] [place] [address] [place] Calcium.ionized (Bld) [Mass/Vol] 1.16 mmol/L Normal 1.08-1.30 [facility] Comment on above: Order Comment: Speci men Type: ARTERIAL BLOOD SPECIMENOrdering Facility: [facility] Address: [address] [place] [address] Performed By: #### A LLBG ####[facility] RESPIRATORY THERAPYCLIA [id number] [address] [place] Carboxyhemoglobin (BldA) [Mass fraction] 0.6 % Normal 0.0-2.0 [facility] Comment on above: Order Comment: Speci men Type: ARTERIAL BLOOD SPECIMENOrdering Facility: [facility] Address: [address] [place], [place] [address] Result Comment: Carb oxyhemoglobin Reference Range for Smokers: 2.0-8.0% Performed By: #### A LLBG ####[facility] RESPIRATORY THERAPYCLIA [id number] [address] [place] CO2 (Bld) [Partial pressure] 49 mm Hg High 36-46 [facility] Comment on above: Order Comment: Speci men Type: ARTERIAL BLOOD SPECIMENOrdering Facility: [facility] Address: [address] [place], [place] [address] Performed By: #### A LLBG ####[facility] RESPIRATORY THERAPYCLIA [id number] [address] [place] CO2 adjusted to patient's actual temperature (Bld) [Partial pressure] Normal [facility] Comment on above: Order Comment: Speci men Type: ARTERIAL BLOOD SPECIMENOrdering Facility: [facility] Address: [address] [place] [address] Performed By: #### A LLBG ####[facility] RESPIRATORY THERAPYCLIA [id number] [place] [address] [place] FIO2 30.0 % Normal [facility] Comment on above: Order Comment: Speci men Type: ARTERIAL BLOOD SPECIMENOrdering Facility: [facility] Address: [address] [place] [address] Performed By: #### A LLBG ####[facility] RESPIRATORY THERAPYCLIA [id number] [address] [place] Glucose [Mass/Vol] 104 mg/dL Normal 60-105 [facility] Comment on above: Order Comment: Speci men Type: ARTERIAL BLOOD SPECIMENOrdering Facility: [facility] Address: [address] [place] [address] Performed By: #### A LLBG ####[facility] RESPIRATORY THERAPYCLIA [id number] [address] [place] HCO3 (Bld) [Moles/Vol] 21 mmol/L Low 22-26 [facility] Comment on above: Order Comment: Speci men Type: ARTERIAL BLOOD SPECIMENOrdering Facility: [facility] Address: [address] [place] [place] [address] Performed By: #### A LLBG ####[facility] RESPIRATORY THERAPYCLIA [id number] [address] [place] Hemoglobin (Bld) [Mass/Vol] 9.2 g/dL Low 13.0-17.0 [facility] Comment on above: Order Comment: Speci men Type: ARTERIAL BLOOD SPECIMENOrdering Facility: [facility] Address: [address] [place] [address] Performed By: #### A LLBG ####[facility] RESPIRATORY THERAPYCLIA [id number] [address] [place] INHALED TIDAL VOLUME (ML) 500 Normal [facility] Comment on above: Order Comment: Speci men Type: ARTERIAL BLOOD SPECIMENOrdering Facility: [facility] Address: [address] [address] Performed By: #### A LLBG ####[facility] RESPIRATORY THERAPYCLIA [id number] [address] [place] INSPIRATORY PRESSURE SET (CMH2O) 14 cmH2O [facility] Comment on above: Order Comment: Speci men Type: ARTERIAL BLOOD SPECIMENOrdering Facility: [facility] Address: [address] [place] [address] Performed By: #### A LLBG ####[facility] RESPIRATORY THERAPYCLIA [id number] [address] [place] Lactate [Moles/Vol] 1.3 mmol/L Normal 0.5-2.2 [facility] Comment on above: Order Comment: Speci men Type: ARTERIAL BLOOD SPECIMENOrdering Facility: [facility] Address: [address] [place] [address] Performed By: #### A LLBG ####[facility] RESPIRATORY THERAPYCLIA [id number] [address] [place] Methemoglobin (Bld) [Mass fraction] 0.3 % Normal 0.0-1.5 [facility] Comment on above: Order Comment: Speci men Type: ARTERIAL BLOOD SPECIMENOrdering Facility: [facility] Address: [address] [address] Performed By: #### A LLBG ####[facility] RESPIRATORY THERAPYCLIA [id number] [address] [place] O2 THERAPY Positive [facility] Comment on above: Order Comment: Speci men Type: ARTERIAL BLOOD SPECIMENOrdering Facility: [facility] Address: [address] [place] [address] Performed By: #### A LLBG ####[facility] RESPIRATORY THERAPYCLIA [id number] [address] [place] Oxygen (Bld) [Partial pressure] 102 mm Hg High 85-95 [facility] Comment on above: Order Comment: Speci men Type: ARTERIAL BLOOD SPECIMENOrdering Facility: [facility] Address: [address] [place] [address] Performed By: #### A LLBG ####[facility] RESPIRATORY THERAPYCLIA [id number] [address] [place] Oxygen adjusted to patient's actual temperature (Bld) [Partial pressure] Normal [facility] Comment on above: Order Comment: Speci men Type: ARTERIAL BLOOD SPECIMENOrdering Facility: [facility] Address: [address] [place] [address] Performed By: #### A LLBG ####[facility] RESPIRATORY THERAPYCLIA [id number] [address] [place] Oxyhemoglobin (BldA) [Mass fraction] 96 % Normal 95-98 [facility] Comment on above: Order Comment: Speci men Type: ARTERIAL BLOOD SPECIMENOrdering Facility: [facility] Address: [address] [place] [address] Performed By: #### A LLBG ####[facility] RESPIRATORY THERAPYCLIA [id number] [address] [place] PEEP/CPAP 8 cmH2O Normal [facility] Comment on above: Order Comment: Speci men Type: ARTERIAL BLOOD SPECIMENOrdering Facility: [facility] Address: [address] [address] Performed By: #### A LLBG ####[facility] RESPIRATORY THERAPYCLIA [id number] [address] [place] pH (Bld) 7.26 [pH] Low 7.35-7.45 [facility] Comment on above: Order Comment: Speci men Type: ARTERIAL BLOOD SPECIMENOrdering Facility: [facility] Address: [address] [place], [place] [address] Performed By: #### A LLBG ####[facility] RESPIRATORY THERAPYCLIA [id number] [address] pH adjusted to patient's actual temperature (Bld) Normal [facility] Comment on above: Order Comment: Speci men Type: ARTERIAL BLOOD SPECIMENOrdering Facility: [facility] Address: [address] [place] [address] Performed By: #### A LLBG ####[facility] RESPIRATORY THERAPYCLIA [id number] [address] [place] Potassium [Moles/Vol] 4.6 mmol/L Normal 2.5-6.0 [facility] Comment on above: Order Comment: Speci men Type: ARTERIAL BLOOD SPECIMENOrdering Facility: [facility] Address: [address] [place] [address] Performed By: #### A LLBG ####[facility] RESPIRATORY THERAPYCLIA [id number] [address] SET VENTILATOR RESPIRATORY RATE (BPM) 20 BPM Normal [facility] Comment on above: Order Comment: Speci men Type: ARTERIAL BLOOD SPECIMENOrdering Facility: [facility] Address: [address] [place] [address] Performed By: #### A LLBG ####[facility] RESPIRATORY THERAPYCLIA [id number] [address] [place] Sodium [Moles/Vol] 137 mmol/L Normal 136-144 [facility] Comment on above: Order Comment: Speci men Type: ARTERIAL BLOOD SPECIMENOrdering Facility: [facility] Address: [address] [place] [address] Performed By: #### A LLBG ####[facility] RESPIRATORY THERAPYCLIA [id number] [address] [place] Basic metabolic 2000 panelon 04-27-2022 Anion gap [Moles/Vol] 12 mmol/L Normal 5-16 [facility] Comment on above: Order Comment: Speci men Type: BLOOD SPECIMENOrdering Facility: [facility] Address: [address] [place] [address] Performed By: #### 2 4321-2 ####[facility] LABORATORYCLIA [id number] [place] [address] [place] Calcium [Mass/Vol] 8.9 mg/dL Normal 8.5-10.5 [facility] Comment on above: Order Comment: Speci men Type: BLOOD SPECIMENOrdering Facility: [facility] Address: [address] [place] [address] Performed By: #### 2 4321-2 ####[facility] LABORATORYCLIA [id number] [place] [address] [place] Chloride [Moles/Vol] 106 mmol/L Normal 98-107 [facility] Comment on above: Order Comment: Speci men Type: BLOOD SPECIMENOrdering Facility: [facility] Address: [address] [place] [address] Performed By: #### 2 4321-2 ####[facility] LABORATORYCLIA [id number] [place] [address] [place] CO2 [Moles/Vol] 24 mmol/L Normal 21-32 [facility] Comment on above: Order Comment: Speci men Type: BLOOD SPECIMENOrdering Facility: [facility] Address: [address] [place] [address] Performed By: #### 2 4321-2 ####[facility] LABORATORYCLIA [id number] [place] [address] [place] Creatinine [Mass/Vol] 5.21 mg/dL High 0.50-1.40 [facility] Comment on above: Order Comment: Speci men Type: BLOOD SPECIMENOrdering Facility: [facility] Address: [address] [place] [address] Result Comment: Macrina ents receiving either N-Acetylcysteine (NAC) or Metamizole prior to venipuncture, may have falsely depressed results. Performed By: #### 2 4321-2 ####[facility] LABORATORYCLIA [id number] [place] [address] [place] ESTIMATED GLOMERULAR FILTRATION RATE 12 mL/min/1.73m??? Low >=60 [facility] Comment on above: Order Comment: Kelsi huff Type: BLOOD SPECIMENOrdering Facility: [facility] Address: [address] [place] [address] Result Comment: Caryl mated Glomerular Filtration Rate (eGFR) is calculated using the 2020 CKD-EPI creatinine equation. This equation utilizes serum creatinine, sex, and age as parameters. The creatinine assay has traceable calibration to isotope dilution-mass spectrometry. Refer to KDIGO guidelines for clinical interpretation. In patients with unstable renal function, e.g. those with acute kidney injury, the eGFR may not accurately reflect actual GFR. Performed By: #### 2 4321-2 ####[facility] LABORATORYCLIA [id number] [place] [address] [place] Glucose [Mass/Vol] 98 mg/dL Normal 70-100 [facility] Comment on above: Order Comment: Kelsi huff Type: BLOOD SPECIMENOrdering Facility: [facility] Address: [address] [place] [address] Result Comment: The [place] [employer] (ADA) provides guidance for cutoff values for fasting glucose and random glucose. The ADA defines fasting as no caloric intake for at least 8 hours. Fasting plasma glucose results between 100 to 125 mg/dL indicate increased risk for diabetes (prediabetes).Fasting plasma glucose results greater than or equal to 126 mg/dL meet the criteria for diagnosis of diabetes. In the absence of unequivocal hyperglycemia, results should be confirmed by repeat testing. In a patient with classic symptoms of hyperglycemia or hyperglycemic crisis, random plasma glucose results greater than or equal to 200 mg/dL meet the criteria for diagnosis of diabetes.Reference: Standards of Medical Care in Diabetes 2016, [place] [employer]. Diabetes Care. 2016.39(Suppl 1).Results may be falsely elevated after the administration of Sulfapyridine.Results may be falsely depressed after the administration of Sulfasalazine. Performed By: #### 2 4321-2 ####[facility] LABORATORYCLIA [id number] [place] [id number] [place] Potassium [Moles/Vol] 4.9 mmol/L Normal 3.5-5.1 [facility] Comment on above: Order Comment: Speci men Type: BLOOD SPECIMENOrdering Facility: [facility] Address: [address] [place] [address] Result Comment: Slig ht Hemolysis, Result may be affected. Performed By: #### 2 4321-2 ####[facility] LABORATORYCLIA [id number] [place] [address] [place] Sodium [Moles/Vol] 142 mmol/L Normal 136-145 [facility] Comment on above: Order Comment: Speci men Type: BLOOD SPECIMENOrdering Facility: [facility] Address: [address] [place] [address] Performed By: #### 2 4321-2 ####[facility] LABORATORYCLIA [id number] [place] [address] [place] Urea nitrogen [Mass/Vol] 66 mg/dL High 7-26 [facility] Comment on above: Order Comment: Speci men Type: BLOOD SPECIMENOrdering Facility: [facility] Address: [address] [place] [address] Performed By: #### 2 4321-2 ####[facility] LABORATORYCLIA [id number] [place] [address] [place] CBC panel Auto (Bld)on 04-27 Erythrocyte distribution width (RBC) [Ratio] 16.6 % High 11.5-15.0 [facility] Comment on above: Order Comment: Speci men Type: BLOOD SPECIMENOrdering Facility: [facility] Address: [address] [place] [address] Performed By: #### 5 8410-2 ####[facility] LABORATORYCLIA [id number] [address] [place] Hematocrit (Bld) [Volume fraction] 25.2 % Low 39.0-51.0 [facility] Comment on above: Order Comment: Speci men Type: BLOOD SPECIMENOrdering Facility: [facility] Address: [address] [place] [address] Performed By: #### 5 8410-2 ####[facility] LABORATORYCLIA [id number] [address] OF [facility] Hemoglobin (Bld) [Mass/Vol] 8.2 g/dL Low 13.0-17.0 [facility] Comment on above: Order Comment: Speci men Type: BLOOD SPECIMENOrdering Facility: [facility] Address: [address] [place] [address] Performed By: #### 5 8410-2 ####[facility] LABORATORYCLIA [id number] [address] MCH (RBC) [Entitic mass] 31.1 pg Normal 26.0-34.0 [facility] Comment on above: Order Comment: Speci men Type: BLOOD SPECIMENOrdering Facility: [facility] Address: [address] [place] [address] Performed By: #### 5 8410-2 ####[facility] LABORATORYCLIA [id number] [address] [place] MCHC (RBC) [Mass/Vol] 32.5 g/dL Normal 30.5-36.0 [facility] Comment on above: Order Comment: Speci men Type: BLOOD SPECIMENOrdering Facility: [facility] Address: [address] [place] [address] Performed By: #### 5 8410-2 ####[facility] LABORATORYCLIA [id number] [address] [place] MCV (RBC) [Entitic vol] 95.5 fL Normal 80.0-100.0 [facility] Comment on above: Order Comment: Speci men Type: BLOOD SPECIMENOrdering Facility: [facility] Address: [address] [place] [address] Performed By: #### 5 8410-2 ####[facility] LABORATORYCLIA [id number] [place] [address] [place] Nucleated RBC (Bld) [#/Vol] 10*3/uL Normal <0.01 [facility] Comment on above: Order Comment: Speci men Type: BLOOD SPECIMENOrdering Facility: [facility] Address: [address] [place] [address] Performed By: #### 5 8410-2 ####[facility] LABORATORYCLIA [id number] [place] [address] [place] Platelet mean volume (Bld) [Entitic vol] 10.0 fL Normal 9.0-12.7 [facility] Comment on above: Order Comment: Speci men Type: BLOOD SPECIMENOrdering Facility: [facility] Address: [address] [place], [place] [address] Performed By: #### 5 8410-2 ####[facility] LABORATORYCLIA [id number] [address] [place] Platelets (Bld) [#/Vol] 184 10*3/uL Normal 150-400 [facility] Comment on above: Order Comment: Speci men Type: BLOOD SPECIMENOrdering Facility: [facility] Address: [address] [place] [address] Performed By: #### 5 8410-2 ####[facility] LABORATORYCLIA [id number] [place] [address] [place] RBC (Bld) [#/Vol] 2.64 10*6/uL Low 4.20-6.00 [facility] Comment on above: Order Comment: Speci men Type: BLOOD SPECIMENOrdering Facility: [facility] Address: [address] [place], [place] [address] Performed By: #### 5 8410-2 ####[facility] LABORATORYCLIA [id number] [place] [address] [place] WBC (Bld) [#/Vol] 22.82 10*3/uL High 3.70-11.00 [facility] Comment on above: Order Comment: Speci men Type: BLOOD SPECIMENOrdering Facility: [facility] Address: [address] [place] [address] Performed By: #### 5 8410-2 ####[facility] LABORATORYCLIA [id number] [address] [place] CONSULT PROGon 04-27-2022 CONSULT PROG Normal [facility] CTA CHEST (NONGATED) W IVCON on 04-27-2022 CTA CHEST (NONGATED) W IVCON Normal [facility] NT-proBNP SerPl-mCncon 04-27 Natriuretic peptide.B prohormone N-Terminal [Mass/Vol] >35248 High <125 [facility] Comment on above: Order Comment: Speci men Type: BLOOD SPECIMENOrdering Facility: [facility] Address: [address] [place] [address] Result Comment: NT-p roBNP results of less than 300 pg/mL likely rules out acute congestive heart failure with 99% predictive value.NOTE: These cutoff points are suggested for ACUTE CHF DIAGNOSIS onlyLess than 50 years Greater than 450 pg/mL50 - 75 years Greater than 900 pg/mLGreater than 75 years Greater than 1800 pg/mLNOTE NEW NORMAL RANGE Performed By: #### 3 3762-6 ####[facility] LABORATORYCLIA [id number] [place] [address] [place] NUTRITIONon 04-27-2022 NUTRITION Normal [facility] XR CHEST 1V FRONTALon 2021 XR CHEST 1V FRONTAL Normal [facility] XR CHEST 1V FRONTAL Normal [facility] ARTERIAL BLOOD GASESon 04-26 BASE DEFICIT, ARTERIAL -5 mmol/L Low -2-0 [facility] Comment on above: Order Comment: Speci men Type: ARTERIAL BLOOD SPECIMENOrdering Facility: [facility] Address: [address] [place] [address] [place] [place] [address] Performed By: #### A LLBG ####[facility] RESPIRATORY THERAPYCLIA [id number] [address] [place] Body temperature 98.96 [degF] Normal [facility] Comment on above: Order Comment: Speci men Type: ARTERIAL BLOOD SPECIMENOrdering Facility: [facility] Address: [address] [address] Performed By: #### A LLBG ####[facility] RESPIRATORY THERAPYCLIA [id number] [address] [place] Calcium.ionized (Bld) [Mass/Vol] 1.16 mmol/L Normal 1.08-1.30 [facility] Comment on above: Order Comment: Speci men Type: ARTERIAL BLOOD SPECIMENOrdering Facility: [facility] Address: [address] [place] [address] Performed By: #### A LLBG ####[facility] RESPIRATORY THERAPYCLIA [id number] [address] Carboxyhemoglobin (BldA) [Mass fraction] 0.9 % Normal 0.0-2.0 [facility] Comment on above: Order Comment: Speci men Type: ARTERIAL BLOOD SPECIMENOrdering Facility: [facility] Address: [address] [place] [address] Result Comment: Carb oxyhemoglobin Reference Range for Smokers: 2.0-8.0% Performed By: #### A LLBG ####[facility] RESPIRATORY THERAPYCLIA [id number] [address] [place] CO2 (Bld) [Partial pressure] 47 mm Hg High 36-46 [facility] Comment on above: Order Comment: Speci men Type: ARTERIAL BLOOD SPECIMENOrdering Facility: [facility] Address: [address] [place] [address] Performed By: #### A LLBG ####[facility] RESPIRATORY THERAPYCLIA [id number] [address] [place] CO2 adjusted to patient's actual temperature (Bld) [Partial pressure] Normal [facility] Comment on above: Order Comment: Speci men Type: ARTERIAL BLOOD SPECIMENOrdering Facility: [facility] Address: [address] [place] [address] Performed By: #### A LLBG ####[facility] RESPIRATORY THERAPYCLIA [id number] [address] FIO2 35.0 % Normal [facility] Comment on above: Order Comment: Speci men Type: ARTERIAL BLOOD SPECIMENOrdering Facility: [facility] Address: [facility] [place] [address] Performed By: #### A LLBG ####[facility] RESPIRATORY THERAPYCLIA [id number] [address] [place] Glucose [Mass/Vol] 131 mg/dL High 60-105 [facility] Comment on above: Order Comment: Speci men Type: ARTERIAL BLOOD SPECIMENOrdering Facility: [facility] Address: [address] [place] [address] Performed By: #### A LLBG ####[facility] RESPIRATORY THERAPYCLIA [id number] [address] [place] HCO3 (Bld) [Moles/Vol] 22 mmol/L Normal 22-26 [facility] Comment on above: Order Comment: Speci men Type: ARTERIAL BLOOD SPECIMENOrdering Facility: [facility] Address: [address] [place] [address] Performed By: #### A LLBG ####[facility] RESPIRATORY THERAPYCLIA [id number] [address] [place] Hemoglobin (Bld) [Mass/Vol] 9.2 g/dL Low 13.0-17.0 [facility] Comment on above: Order Comment: Speci men Type: ARTERIAL BLOOD SPECIMENOrdering Facility: [facility] Address: [address] Performed By: #### A LLBG ####[facility] RESPIRATORY THERAPYCLIA [id number] [address] [place] INHALED TIDAL VOLUME (ML) 500 Normal [facility] Comment on above: Order Comment: Speci men Type: ARTERIAL BLOOD SPECIMENOrdering Facility: [facility] Address: [address] [address] Performed By: #### A LLBG ####[facility] RESPIRATORY THERAPYCLIA [id number] [address] [place] INSPIRATORY PRESSURE SET (CMH2O) 14 cmH2O Normal [facility] Comment on above: Order Comment: Speci men Type: ARTERIAL BLOOD SPECIMENOrdering Facility: [facility] Address: [address] [address] Performed By: #### A LLBG ####[facility] RESPIRATORY THERAPYCLIA [id number] [address] [place] Lactate [Moles/Vol] 1.2 mmol/L Normal 0.5-2.2 [facility] Comment on above: Order Comment: Speci men Type: ARTERIAL BLOOD SPECIMENOrdering Facility: [facility] Address: [address] [place] [address] Performed By: #### A LLBG ####[facility] RESPIRATORY THERAPYCLIA [id number] [address] [place] Methemoglobin (Bld) [Mass fraction] 0.3 % Normal 0.0-1.5 [facility] Comment on above: Order Comment: Speci men Type: ARTERIAL BLOOD SPECIMENOrdering Facility: [facility] Address: [address] [place] [address] Performed By: #### A LLBG ####[facility] RESPIRATORY THERAPYCLIA [id number] [address] [place] O2 THERAPY Positive Normal [facility] Comment on above: Order Comment: Speci men Type: ARTERIAL BLOOD SPECIMENOrdering Facility: [facility] Address: [address] Performed By: #### A LLBG ####[facility] RESPIRATORY THERAPYCLIA [id number] [address] [place] Oxygen (Bld) [Partial pressure] 140 mm Hg High 85-95 [facility] Comment on above: Order Comment: Speci men Type: ARTERIAL BLOOD SPECIMENOrdering Facility: [facility] Address: [address] [place] [place] [address] Performed By: #### A LLBG ####[facility] THERAPYCLIA [id number] [address] [place] Oxygen adjusted to patient's actual temperature (Bld) [Partial pressure] Normal [facility] Comment on above: Order Comment: Speci men Type: ARTERIAL BLOOD SPECIMENOrdering Facility: [facility] Address: [address] [place] [address] Performed By: #### A LLBG ####[facility] RESPIRATORY THERAPYCLIA [id number] [address] [place] Oxyhemoglobin (BldA) [Mass fraction] 97 % Normal 95-98 [facility] Comment on above: Order Comment: Speci men Type: ARTERIAL BLOOD SPECIMENOrdering Facility: [facility] Address: [address] [place] [address] Performed By: #### A LLBG ####[facility] RESPIRATORY THERAPYCLIA [id number] [address] [place] PEEP/CPAP 8 cmH2O Normal [facility] Comment on above: Order Comment: Speci men Type: ARTERIAL BLOOD SPECIMENOrdering Facility: [facility] Address: [address] [place] [address] Performed By: #### A LLBG ####[facility] RESPIRATORY THERAPYCLIA [id number] [address] [place] pH (Bld) 7.28 [pH] Low 7.35-7.45 [facility] Comment on above: Order Comment: Speci men Type: ARTERIAL BLOOD SPECIMENOrdering Facility: [facility] Address: [address] [place] [address] Performed By: #### A LLBG ####[facility] RESPIRATORY THERAPYCLIA [id number] [address] [place] pH adjusted to patient's actual temperature (Bld) Normal [facility] Comment on above: Order Comment: Speci men Type: ARTERIAL BLOOD SPECIMENOrdering Facility: [facility] Address: [address] [place] [address] Performed By: #### A LLBG ####[facility] RES[facility] THERAPYCLIA [id number] [address] [place] Potassium [Moles/Vol] 4.6 mmol/L Normal 2.5-6.0 [facility] Comment on above: Order Comment: Speci men Type: ARTERIAL BLOOD SPECIMENOrdering Facility: [facility] Address: [address] [place] [address] Performed By: #### A LLBG ####[facility] RESPIRATORY THERAPYCLIA [id number] [address] OF [facility] VENTILATOR RESPIRATORY RATE (BPM) 20 BPM Normal [facility] Comment on above: Order Comment: Speci men Type: ARTERIAL BLOOD SPECIMENOrdering Facility: [facility] Address: [address] [place] [address] Performed By: #### A LLBG ####[facility] RESPIRATORY THERAPYCLIA [id number] [address] [place] Sodium [Moles/Vol] 136 mmol/L Normal 136-144 [facility] Comment on above: Order Comment: Speci men Type: ARTERIAL BLOOD SPECIMENOrdering Facility: [facility] Address: [address] [place] [address] Performed By: #### A LLBG ####[facility] RESPIRATORY THERAPYCLIA [id number] [address] [place] BASE DEFICIT, ARTERIAL -6 mmol/L Low -2-0 [facility] Comment on above: Order Comment: Speci men Type: ARTERIAL BLOOD SPECIMENOrdering Facility: [facility] Address: [address] [place] [address] Performed By: #### A LLBG ####[facility] RESPIRATORY THERAPYCLIA [id number] [address] [place] Body temperature 98.6 [degF] Normal [facility] Comment on above: Order Comment: Speci men Type: ARTERIAL BLOOD SPECIMENOrdering Facility: [facility] Address: [address] [place] [address] Performed By: #### A LLBG ####[facility] RESPIRATORY THERAPYCLIA [id number] [place] [address] [place] Calcium.ionized (Bld) [Mass/Vol] 1.19 mmol/L Normal 1.08-1.30 [facility] Comment on above: Order Comment: Speci men Type: ARTERIAL BLOOD SPECIMENOrdering Facility: [facility] Address: [address] [place] [address] Performed By: #### A LLBG ####[facility] RESPIRATORY THERAPYCLIA [id number] [place] [address] [place] Carboxyhemoglobin (BldA) [Mass fraction] 0.7 % Normal 0.0-2.0 [facility] Comment on above: Order Comment: Speci men Type: ARTERIAL BLOOD SPECIMENOrdering Facility: [facility] Address: [address] [place] [address] Result Comment: Carb oxyhemoglobin Reference Range for Smokers: 2.0-8.0% Performed By: #### A LLBG ####[facility] RESPIRATORY THERAPYCLIA [id number] [place] [address] [place] CO2 (Bld) [Partial pressure] 56 mm Hg High 36-46 [facility] Comment on above: Order Comment: Speci men Type: ARTERIAL BLOOD SPECIMENOrdering Facility: [facility] Address: [address] [place] [address] Performed By: #### A LLBG ####[facility] RESPIRATORY THERAPYCLIA [id number] [place] [address] [place] Glucose [Mass/Vol] 136 mg/dL High 60-105 [facility] Comment on above: Order Comment: Speci men Type: ARTERIAL BLOOD SPECIMENOrdering Facility: [facility] Address: [address] [place] [address] Performed By: #### A LLBG ####[facility] RESPIRATORY THERAPYCLIA [id number] [place] [address] [place] HCO3 (Bld) [Moles/Vol] 22 mmol/L Normal 22-26 [facility] Comment on above: Order Comment: Speci men Type: ARTERIAL BLOOD SPECIMENOrdering Facility: [facility] Address: [address] [place] [address] Performed By: #### A LLBG ####[facility] RESPIRATORY THERAPYCLIA [id number] [address] [place] Hemoglobin (Bld) [Mass/Vol] 9.2 g/dL Low 13.0-17.0 [facility] Comment on above: Order Comment: Speci men Type: ARTERIAL BLOOD SPECIMENOrdering Facility: [facility] Address: [address] [place] [address] Performed By: #### A LLBG ####[facility] RESPIRATORY THERAPYCLIA [id number] [address] [place] Lactate [Moles/Vol] 1.0 mmol/L Normal 0.5-2.2 [facility] Comment on above: Order Comment: Speci men Type: ARTERIAL BLOOD SPECIMENOrdering Facility: [facility] Address: [address] [place] [address] Performed By: #### A LLBG ####[facility] RESPIRATORY THERAPYCLIA [id number] [address] [place] LITERS 2 Liters/min Normal [facility] Comment on above: Order Comment: Speci men Type: ARTERIAL BLOOD SPECIMENOrdering Facility: [facility] Address: [address] [place] [address] Performed By: #### A LLBG ####[facility] RESPIRATORY THERAPYCLIA [id number] [address] [place] Methemoglobin (Bld) [Mass fraction] 0.1 % Normal 0.0-1.5 [facility] Comment on above: Order Comment: Speci men Type: ARTERIAL BLOOD SPECIMENOrdering Facility: [facility] Address: [address] [place] [address] Performed By: #### A LLBG ####[facility] RESPIRATORY THERAPYCLIA [id number] [address] [place] O2 THERAPY NC = Nasal Cannula Normal [facility] Comment on above: Order Comment: Speci men Type: ARTERIAL BLOOD SPECIMENOrdering Facility: [facility] Address: [address] [place] [address] Performed By: #### A LLBG ####[facility] RESPIRATORY THERAPYCLIA [id number] [place] [address] [place] Oxygen (Bld) [Partial pressure] 114 mm Hg High 85-95 [facility] Comment on above: Order Comment: Speci men Type: ARTERIAL BLOOD SPECIMENOrdering Facility: [facility] Address: [address] [place] [address] Performed By: #### A LLBG ####[facility] RESPIRATORY THERAPYCLIA [id number] [place] [address] [facility] [place] Oxyhemoglobin (BldA) [Mass fraction] 97 % Normal 95-98 [facility] Comment on above: Order Comment: Speci men Type: ARTERIAL BLOOD SPECIMENOrdering Facility: [facility] Address: [address] [place] [address] Performed By: #### A LLBG ####[facility] RESPIRATORY THERAPYCLIA [id number] [place] [address] [place] pH (Bld) 7.22 [pH] Low 7.35-7.45 [facility] Comment on above: Order Comment: Speci men Type: ARTERIAL BLOOD SPECIMENOrdering Facility: [facility] Address: [address] [place] [address] Performed By: #### A LLBG ####[facility] RESPIRATORY THERAPYCLIA [id number] [place] [address] [place] Potassium [Moles/Vol] 4.6 mmol/L Normal 2.5-6.0 [facility] Comment on above: Order Comment: Speci men Type: ARTERIAL BLOOD SPECIMENOrdering Facility: [facility] Address: [address] [place] [address] Performed By: #### A LLBG ####[facility] RESPIRATORY THERAPYCLIA [id number] [place] [address] [place] Sodium [Moles/Vol] 135 mmol/L Low 136-144 [facility] Comment on above: Order Comment: Speci men Type: ARTERIAL BLOOD SPECIMENOrdering Facility: [facility] Address: [facility] [address] Performed By: #### A LLBG ####[facility] THERAPYCLIA [id number] [place] [id number] [place] Basic metabolic 2000 panelon 04-26-2022 Anion gap [Moles/Vol] 9 mmol/L Normal 5-16 [facility] Comment on above: Order Comment: Speci men Type: BLOOD SPECIMENOrdering Facility: [facility] Address: [facility] [place] [address] Performed By: #### 2 4321-2, ####[facility] LABORATORYCLIA [id number] [place] [address] [place] Calcium [Mass/Vol] 8.5 mg/dL Normal 8.5-10.5 [facility] Comment on above: Order Comment: Speci men Type: BLOOD SPECIMENOrdering Facility: [facility] Address: [facility] [place] Performed By: #### 2 4321-2, ####[facility] LABORATORYCLIA [id number] [place] [address] [place] Chloride [Moles/Vol] 107 mmol/L Normal 98-107 [facility] Comment on above: Order Comment: Speci men Type: BLOOD SPECIMENOrdering Facility: [facility] Address: [address] Performed By: #### 2 4321-2, ####[facility] LABORATORYCLIA [id number] [place] [id number] [place] CO2 [Moles/Vol] 26 mmol/L Normal 21-32 [facility] Comment on above: Order Comment: Speci men Type: BLOOD SPECIMENOrdering Facility: [facility] Address: [address] Performed By: #### 2 4321-2, ####[facility] LABORATORYCLIA [id number] [place] [id number] [place] Creatinine [Mass/Vol] 3.41 mg/dL High 0.50-1.40 [facility] Comment on above: Order Comment: Kelsi huff Type: BLOOD SPECIMENOrdering Facility: [facility] Address: [address] [place] [address] Result Comment: Macrina ents receiving either N-Acetylcysteine (NAC) or Metamizole prior to venipuncture, may have falsely depressed results. Performed By: #### 2 432-2, ####[facility] LABORATORYCLIA [id number] [place] [address] [facility] ESTIMATED GLOMERULAR FILTRATION RATE 19 mL/min/1.73m??? Low >=60 [facility] Comment on above: Order Comment: Kelsi huff Type: BLOOD SPECIMENOrdering Facility: [facility] Address: [address] [place] [address] Result Comment: Caryl mated Glomerular Filtration Rate (eGFR) is calculated using the 2020 CKD-EPI creatinine equation. This equation utilizes serum creatinine, sex, and age as parameters. The creatinine assay has traceable calibration to isotope dilution-mass spectrometry. Refer to KDIGO guidelines for clinical interpretation. In patients with unstable renal function, e.g. those with acute kidney injury, the eGFR may not accurately reflect actual GFR. Performed By: #### 2 4321-2, ####[facility] LABORATORYCLIA [id number] [place] [id number] [place] Glucose [Mass/Vol] 122 mg/dL High 70-100 [facility] Comment on above: Order Comment: Kelsi huff Type: BLOOD SPECIMENOrdering Facility: [facility] Address: [address] [place] [address] Result Comment: The [place] [employer] (ADA) provides guidance for cutoff values for fasting glucose and random glucose. The ADA defines fasting as no caloric intake for at least 8 hours. Fasting plasma glucose results between 100 to 125 mg/dL indicate increased risk for diabetes (prediabetes).Fasting plasma glucose results greater than or equal to 126 mg/dL meet the criteria for diagnosis of diabetes. In the absence of unequivocal hyperglycemia, results should be confirmed by repeat testing. In a patient with classic symptoms of hyperglycemia or hyperglycemic crisis, random plasma glucose results greater than or equal to 200 mg/dL meet the criteria for diagnosis of diabetes.Reference: Standards of Medical Care in Diabetes 2016, [place] [employer]. Diabetes Care. 2016.39(Suppl 1).Results may be falsely elevated after the administration of Sulfapyridine.Results may be falsely depressed after the administration of Sulfasalazine. Performed By: #### 2 43208-28, ####[facility] LABORATORYCLIA [id number] [place] [address] [place] Potassium [Moles/Vol] 4.6 mmol/L Normal 3.5-5.1 [facility] Comment on above: Order Comment: Kelsi huff Type: BLOOD SPECIMENOrdering Facility: [facility] Address: [address] [place] [address] Performed By: #### 2 ####[facility] LABORATORYCLIA [id number] [place] [address] [place] [facility] Sodium [Moles/Vol] 142 mmol/L Normal 136-145 [facility] Comment on above: Order Comment: Kelsi huff Type: BLOOD SPECIMENOrdering Facility: [facility] Address: [address] [place] [address] Performed By: #### 2 ####[facility] LABORATORYCLIA [id number] [place] [address] [place] Urea nitrogen [Mass/Vol] 45 mg/dL High 7-26 [facility] Comment on above: Order Comment: Kelsi huff Type: BLOOD SPECIMENOrdering Facility: [facility] Address: [address] Performed By: #### 2 432 ####[facility] LABORATORYCLIA [id number] [address] [place] CASE MANAGEMon 04-26-2022 CASE MANAGEM Normal [facility] CBC W Auto Differential pane l (Bld)on 04-26-2022 Band form neutrophils/100 WBC (Bld) 11.0 % Normal [facility] Comment on above: Order Comment: Speci men Type: BLOOD SPECIMENOrdering Facility: [facility] Address: [address] [place] [address] Performed By: #### 5 7021-8 ####[facility] LABORATORYCLIA [id number] [place] [address] [place] Basophils/100 WBC (Bld) 0.0 % [facility] Comment on above: Order Comment: Speci men Type: BLOOD SPECIMENOrdering Facility: [facility] Address: [address] [place] [address] Performed By: #### 5 7021-8 ####[facility] LABORATORYCLIA [id number] [address] [place] Differential cell count method Nom (Bld) Manual Normal [facility] Comment on above: Order Comment: Speci men Type: BLOOD SPECIMENOrdering Facility: [facility] Address: [address] [place] [address] Performed By: #### 5 7021-8 ####[facility] LABORATORYCLIA [id number] [place] [address] [place] Eosinophils (Bld) [#/Vol] 0.20 10*3/uL Normal <0.46 [facility] Comment on above: Order Comment: Speci men Type: BLOOD SPECIMENOrdering Facility: [facility] Address: [address] [place] [address] Performed By: #### 5 7021-8 ####[facility] LABORATORYCLIA [id number] [address] Eosinophils/100 WBC (Bld) 1.0 % [facility] Comment on above: Order Comment: Speci men Type: BLOOD SPECIMENOrdering Facility: [facility] Address: [address] Performed By: #### 5 7021-8 ####[facility] LABORATORYCLIA [id number] [place] [address] [place] Erythrocyte distribution width (RBC) [Ratio] 15.9 % High 11.5-15.0 [facility] Comment on above: Order Comment: Speci men Type: BLOOD SPECIMENOrdering Facility: [facility] Address: [address] [place] [address] Performed By: #### 5 7021-8 ####[facility] LABORATORYCLIA [id number] [place] [address] [place] Hematocrit (Bld) [Volume fraction] 21.7 % Low 39.0-51.0 [facility] Comment on above: Order Comment: Speci men Type: BLOOD SPECIMENOrdering Facility: [facility] Address: [address] [place] [address] Performed By: #### 5 7021-8 ####[facility] LABORATORYCLIA [id number] [place] [address] [place] Hemoglobin (Bld) [Mass/Vol] 7.1 g/dL Low 13.0-17.0 [facility] Comment on above: Order Comment: Speci men Type: BLOOD SPECIMENOrdering Facility: [facility] Address: [address] [place] [address] Performed By: #### 5 7021-8 ####[facility] LABORATORYCLIA [id number] [place] [address] [place] Lymphocytes (Bld) [#/Vol] 1.56 10*3/uL Normal 1.00-4.00 [facility] Comment on above: Order Comment: Speci men Type: BLOOD SPECIMENOrdering Facility: [facility] Address: [address] [place] [address] Performed By: #### 5 7021-8 ####[facility] LABORATORYCLIA [id number] [place] [address] [place] Lymphocytes/100 WBC (Bld) 8.0 % Normal [facility] Comment on above: Order Comment: Speci men Type: BLOOD SPECIMENOrdering Facility: [facility] Address: [address] [place] [address] Performed By: #### 5 7021-8 ####[facility] LABORATORYCLIA [id number] [place] [address] [place] MCH (RBC) [Entitic mass] 32.0 pg Normal 26.0-34.0 [facility] Comment on above: Order Comment: Speci men Type: BLOOD SPECIMENOrdering Facility: [facility] Address: [address] [place] [address] Performed By: #### 5 7021-8 ####[facility] LABORATORYCLIA [id number] [address] [place] MCHC (RBC) [Mass/Vol] 32.7 g/dL Normal 30.5-36.0 [facility] Comment on above: Order Comment: Speci men Type: BLOOD SPECIMENOrdering Facility: [facility] Address: [address] [place] [address] Performed By: #### 5 7021-8 ####[facility] LABORATORYCLIA [id number] [address] [place] MCV (RBC) [Entitic vol] 97.7 fL Normal 80.0-100.0 [facility] Comment on above: Order Comment: Speci men Type: BLOOD SPECIMENOrdering Facility: [facility] Address: [address] [place], [place] [address] Performed By: #### 5 7021-8 ####[facility] LABORATORYCLIA [id number] [place] [address] [place] Neutrophils (Bld) [#/Vol] 16.80 10*3/uL High 1.45-7.50 [facility] Comment on above: Order Comment: Speci men Type: BLOOD SPECIMENOrdering Facility: [facility] Address: [address] [place], [place] [address] Performed By: #### 5 7021-8 ####[facility] LABORATORYCLIA [id number] [address] [place] Neutrophils/100 WBC (Bld) 75.0 % Normal [facility] Comment on above: Order Comment: Speci men Type: BLOOD SPECIMENOrdering Facility: [facility] Address: [address] [place] [address] Performed By: #### 5 7021-8 ####[facility] LABORATORYCLIA [id number] [place] [address] [place] Nucleated RBC/100 WBC (Bld) [Ratio] 0.0 /100 WBC Normal [facility] Comment on above: Order Comment: Speci men Type: BLOOD SPECIMENOrdering Facility: [facility] Address: [address] [place] [address] Performed By: #### 5 7021-8 ####[facility] LABORATORYCLIA [id number] [address] [place] PLATELET ESTIMATE Decreased Normal [facility] Comment on above: Order Comment: Speci men Type: BLOOD SPECIMENOrdering Facility: [facility] Address: [address] [place] [address] Performed By: #### 5 7021-8 ####[facility] LABORATORYCLIA [id number] [place] [address] [place] Platelet mean volume (Bld) [Entitic vol] 9.9 fL Normal 9.0-12.7 [facility] Comment on above: Order Comment: Speci men Type: BLOOD SPECIMENOrdering Facility: [facility] Address: [address] [place] [address] Performed By: #### 5 7021-8 ####[facility] LABORATORYCLIA [id number] [address] [place] Platelets (Bld) [#/Vol] 130 10*3/uL Low 150-400 [facility] Comment on above: Order Comment: Speci men Type: BLOOD SPECIMENOrdering Facility: [facility] Address: [address] [place] [address] Performed By: #### 5 7021-8 ####[facility] LABORATORYCLIA [id number] [place] [address] [facility] RBC (Bld) [#/Vol] 2.22 10*6/uL Low 4.20-6.00 [facility] Comment on above: Order Comment: Speci men Type: BLOOD SPECIMENOrdering Facility: [facility] Address: [address] [place] [address] Performed By: #### 5 7021-8 ####[facility] LABORATORYCLIA [id number] [address] RED CELL MORPH Reviewed: unremarkable Normal [facility] Comment on above: Order Comment: Speci men Type: BLOOD SPECIMENOrdering Facility: [facility] Address: [address] [place] [address] Performed By: #### 5 7021-8 ####[facility] LABORATORYCLIA [id number] [address] WAM - ABS BASO 0.00 k/uL Normal <0.11 [facility] Comment on above: Order Comment: Speci men Type: BLOOD SPECIMENOrdering Facility: [facility] Address: [address] [place] [address] Performed By: #### 5 7021-8 ####[facility] LABORATORYCLIA [id number] [address] WAM - ABS MONO 0.98 k/uL High <0.87 [facility] Comment on above: Order Comment: Speci men Type: BLOOD SPECIMENOrdering Facility: [facility] Address: [address] [place] [address] Performed By: #### 5 7021-8 ####[facility] LABORATORYCLIA [id number] [address] [place] WAM - MONO% 5.0 % Normal [facility] Comment on above: Order Comment: Speci men Type: BLOOD SPECIMENOrdering Facility: [facility] Address: [address] [place] [address] Performed By: #### 5 7021-8 ####[facility] LABORATORYCLIA [id number] [address] [place] WAM ABSOLUTE NRBC <0.01 Normal <0.01 [facility] Comment on above: Order Comment: Speci men Type: BLOOD SPECIMENOrdering Facility: [facility] Address: [address] [place], [place] [address] Performed By: #### 5 7021-8 ####[facility] LABORATORYCLIA [id number] [place] [address] [place] WBC (Bld) [#/Vol] 19.54 10*3/uL High 3.70-11.00 [facility] Comment on above: Order Comment: Speci men Type: BLOOD SPECIMENOrdering Facility: [facility] Address: [address] [place] [address] Performed By: #### 5 7021-8 ####[facility] LABORATORYCLIA [id number] [address] [place] CONSULT PROGon 04-26-2022 CONSULT PROG Normal [facility] Calcium.ionized [Moles/Vol]o n 04-26-2022 Calcium.ionized (Bld) [Mass/Vol] 1.13 mmol/L Low 1.16-1.32 [facility] Comment on above: Order Comment: Speci men Type: BLOOD SPECIMENOrdering Facility: [facility] Address: [address] [place], [place] [address] Performed By: #### 1 995-0 ####[facility] LABORATORYCLIA [id number] [place] [address] [place] Magnesium SerPl-mCncon 04-26 Magnesium [Mass/Vol] 2.6 mg/dL Normal 1.6-2.6 [facility] Comment on above: Order Comment: Speci men Type: BLOOD SPECIMENOrdering Facility: [facility] Address: [address] [place] [address] Performed By: #### 2 4321-2, 80075-2 ####[facility] LABORATORYCLIA [id number] [place] [address] [place] [place] CASE MGT INIT ASSESon 2021 CASE MGT INIT ASSES Normal [facility] CONSULT PROGon 04-25-2022 CONSULT PROG Normal [facility] TROPONIN I HIGH SENSITIVITYo n 04-25-2022 Tropinin I.cardiac panel High sensitivity method 227.1 pg/mL Critically high 0.0-54.0 [facility] Comment on above: Order Comment: Kelsi huff Type: BLOOD SPECIMENOrdering Facility: [facility] Address: [address] [place] [address] Result Comment: This assay uses different antibodies than our current assay, and assays, even by the same aboriginal community council member may recognize different regions of the antibody and cannot be used interchangeably. Expect results of this assay to run higher than the previous assay. Previous Critical within 24 hours. Critical Result(s) verified at: 21:58:33 on 04/25/2022 by: Maki Nolasco Performed By: #### H STROP ####[facility]ORATORYCLIA [id number] [address] [place] Tropinin I.cardiac panel High sensitivity method 272.2 pg/mL Critically high 0.0-54.0 [facility] Comment on above: Order Comment: Kelsi huff Type: BLOOD SPECIMENOrdering Facility: [facility] Address: [address] [place] [address] Result Comment: This assay uses different antibodies than our current assay, and assays, even by the same aboriginal community council member may recognize different regions of the antibody and cannot be used interchangeably. Expect results of this assay to run higher than the previous assay. Previous Critical within 24 hours. Critical Result(s) verified at: 16:50:47 on 04/25/2022 by: Maki Nolasco Performed By: #### H STROP ####[facility]ORATORYCLIA [id number] [place] [id number] [place] ABO/RH(D) TYPINGon 2 ABO/RH(D) TYPE Negative Normal [facility] Comment on above: Performed By: #### B ILTO, IPB, URICB, TP #### [facility] (DEFAULT) [address] [place] [address] 45264 ALBUMINon 03-06-2022 Albumin [Mass/Vol] 4.1 g/dL Normal 3.5-5.0 [facility] Comment on above: Performed By: #### B ILTO, IPB, URICB, TP #### U [facility] (DEFAULT) [address] [place] [address] 98575 Albumin [Mass/Vol] 4.1 g/dL 3.5 - 5.0 g/dL [facility] ALCOHOL (ETHANOL),BLOODOrder ed By: Aisha Meyer on 03-06-2022 Ethanol Ql (Bld) <10 <10 mg/dL [facility] Ethanol Ql (U) Not detected [facility] ALCOHOL (ETHANOL),BLOODon Alcohol, Serum <10 Normal <10 [facility] Comment on above: Performed By: #### B ILTO, IPB, URICB, TP #### [facility] (DEFAULT) [address] [place] [address] 94559 Ethanol [Mass/Vol] Not detected Normal [facility] Comment on above: Performed By: #### B ILTO, IPB, URICB, TP #### [facility] (DEFAULT) [address] [place] [address] 90294 ALP ALT Hayley 03-06-2022 ALP [Catalytic activity/Vol] 140 U/L High 32-126 [facility] Comment on above: Performed By: #### B ILTO, IPB, URICB, TP #### [facility] (DEFAULT) [address] [place] [address] 98604 ALT [Catalytic activity/Vol] 15 U/L Normal 10-52 [facility] Comment on above: Performed By: #### B ILTO, IPB, URICB, TP #### [facility] (DEFAULT) [address] [place] [address] 58057 AST [Catalytic activity/Vol] 20 U/L Normal 10-39 [facility] Comment on above: Performed By: #### B ILTO, IPB, URICB, TP #### [facility] (DEFAULT) [address] [place] [address] 48116 ALP [Catalytic activity/Vol] 140 U/L High 32 - 126 U/L [facility] ALT [Catalytic activity/Vol] 15 U/L 10 - 52 U/L [facility] AST [Catalytic activity/Vol] 20 U/L 10 - 39 U/L [facility] BILIRUBIN TOTALon 03-06-2022 Bilirubin [Mass/Vol] 0.6 mg/dL Normal <1.5 [facility] Comment on above: Performed By: #### B ILTO, IPB, URICB, TP #### [facility] (DEFAULT) [address] [place] [address] 79244 Bilirubin [Mass/Vol] 0.6 mg/dL <1.5 [facility] C-PEPTIDEon 03-06-2022 C-Peptide 6.1 ng/mL High 0.2-2.7 [facility] Comment on above: Performed By: #### B ILTO, IPB, URICB, TP #### [facility] (DEFAULT) [address] [place] [address] 82860 CALCIUMon 03-06-2022 Calcium [Mass/Vol] 9.6 mg/dL Normal 8.6-10.5 [facility] Comment on above: Performed By: #### B ILTO, IPB, URICB, TP #### U [facility] (DEFAULT) [address] [place] [address] 38566 Calcium [Mass/Vol] 9.6 mg/dL 8.6 - 10. 5 mg/dL [facility] CBC AND ELECTRONIC DIFFon Basophils (Bld) [#/Vol] 10*3/uL Normal 0.00-0.09 [facility] Comment on above: Performed By: #### B ILTO, IPB, URICB, TP #### [facility] (DEFAULT) [address] [place] [address] 82168 Basophils/100 WBC (Bld) 0.3 % Normal [facility] Comment on above: Performed By: #### B ILTO, IPB, URICB, TP #### [facility] (DEFAULT) [address] [place] [address] 93817 DIFF STATUS Electronic Differential Normal [facility] Comment on above: Performed By: #### B ILTO, IPB, URICB, TP #### [facility] (DEFAULT) [address] [place] [address] 78094 Eosinophils (Bld) [#/Vol] 0.14 10*3/uL Normal 0.00-0.48 [facility] Comment on above: Performed By: #### B ILTO, IPB, URICB, TP #### [place] [facility] (DEFAULT) [address] [place] [address] 12144 Eosinophils/100 WBC (Bld) 2.2 % Normal [facility] Comment on above: Performed By: #### B ILTO, IPB, URICB, TP #### [facility] (DEFAULT) [address] [place] [address] 93464 Hematocrit (Bld) [Volume fraction] 32.6 % Low 39.6-48.8 [facility] Comment on above: Performed By: #### B ILTO, IPB, URICB, TP #### [facility] (DEFAULT) [address] [place] [address] 65340 Hemoglobin (Bld) [Mass/Vol] 10.7 g/dL Low 13.4-16.8 [facility] Comment on above: Performed By: #### B ILTO, IPB, URICB, TP #### [facility] (DEFAULT) [address] [place] [address] 36466 Immature Grans % 0.3 % Normal [facility] Comment on above: Performed By: #### B ILTO, IPB, URICB, TP #### [facility] (DEFAULT) [address] [place] [address] 74455 Immature Grans Absolute <0.04 Normal <=0.07 [facility] Comment on above: Performed By: #### B ILTO, IPB, URICB, TP #### [facility] (DEFAULT) [address] [place] [address] 26346 Lymphocytes (Bld) [#/Vol] 0.88 10*3/uL Normal 0.83-3.57 [facility] Comment on above: Performed By: #### B ILTO, IPB, URICB, TP #### [facility] (DEFAULT) [address] [place] [address] 23426 Lymphocytes/100 WBC (Bld) 13.8 % Normal [facility] Comment on above: Performed By: #### B ILTO, IPB, URICB, TP #### [facility] (DEFAULT) [address] [place] [address] 24830 MCV (RBC) [Entitic vol] 95.9 fL High 79.0-94.5 [facility] Comment on above: Performed By: #### B ILTO, IPB, URICB, TP #### [facility] (DEFAULT) [address] [place] [address] 99394 Mean Cell Hgb 31.5 pg Normal 26.1-33.3 [facility] Comment on above: Performed By: #### B ILTO, IPB, URICB, TP #### [facility] (DEFAULT) [address] [place] [address] 65476 Mean Cell Hgb Conc 32.8 g/dL Normal 31.9-36.5 [facility] Comment on above: Performed By: #### B ILTO, IPB, URICB, TP #### [facility] (DEFAULT) [address] [place] [address] 91478 Monocytes (Bld) [#/Vol] 0.62 10*3/uL Normal 0.24-0.93 [facility] Comment on above: Performed By: #### B ILTO, IPB, URICB, TP #### [facility] (DEFAULT) [address] [place] [address] 15984 Monocytes/100 WBC (Bld) 9.7 % Normal [facility] Comment on above: Performed By: #### B ILTO, IPB, URICB, TP #### [facility] (DEFAULT) [address] [place] [address] 42995 Nucleated RBC 0.0 /100 WBC Normal <=0.2 [facility] Comment on above: Performed By: #### B ILTO, IPB, URICB, TP #### [facility] (DEFAULT) [address] [place] [address] 44460 Platelet mean volume (Bld) [Entitic vol] 9.7 fL Normal 8.7-12.3 [facility] Comment on above: Performed By: #### B ILTO, IPB, URICB, TP #### [facility] (DEFAULT) [address] [place] [address] 85276 Platelets (Bld) [#/Vol] 192 10*3/uL Normal 146-337 [facility] Comment on above: Performed By: #### B ILTO, IPB, URICB, TP #### [facility] (DEFAULT) [address] [place] [address] 12634 RBC (Bld) [#/Vol] 3.40 10*6/uL Low 4.38-5.83 [facility] Comment on above: Performed By: #### B ILTO, IPB, URICB, TP #### [facility] (DEFAULT) [address] [place] [address] 41911 RBC Distribution 14.5 % High 10.9-14.3 [facility] Comment on above: Performed By: #### B ILTO, IPB, URICB, TP #### [facility] (DEFAULT) [address] [place] [address] 55185 Segs + Bands Auto 73.7 % Normal [facility] Comment on above: Performed By: #### B ILTO, IPB, URICB, TP #### [facility] (DEFAULT) [address] [place] [address] 38792 Segs + Bands,Absolute Auto 4.69 K/uL Normal 1.57-6.19 [facility] Comment on above: Performed By: #### B ILTO, IPB, URICB, TP #### [facility] (DEFAULT) [address] [place] [address] 29278 WBC (Bld) [#/Vol] 6.37 10*3/uL Normal 3.73-10.10 [facility] Comment on above: Performed By: #### B ILTO, IPB, URICB, TP #### [facility] (DEFAULT) [address] [place] [address] 83930 Basophils (Bld) [#/Vol] 10*3/uL 0.00 - 0.09 K/uL [facility] Basophils/100 WBC (Bld) 0.3 % [facility] Differential cell count method Nom (Bld) Electronic Differential [facility] Eosinophils (Bld) [#/Vol] 0.14 10*3/uL 0.00 - 0.48 K/uL [facility] Eosinophils/100 WBC (Bld) 2.2 % [facility] Erythrocyte distribution width (RBC) [Ratio] 14.5 % High 10.9 - 14.3 % [facility] Hematocrit (Bld) [Volume fraction] 32.6 % Low 39.6 - 48.8 % [facility] Hemoglobin (Bld) [Mass/Vol] 10.7 g/dL Low 13.4 - 16.8 g/dL [facility] Immature granulocytes (Bld) [#/Vol] 10*3/uL <=0.07 K/uL [facility] Immature granulocytes/100 WBC (Bld) 0.3 % [facility] Interpretation and review of laboratory results Abnormal [facility] Lymphocytes (Bld) [#/Vol] 0.88 10*3/uL 0.83 - 3.57 K/uL [facility] Lymphocytes/100 WBC (Bld) 13.8 % [facility] MCH (RBC) [Entitic mass] 31.5 pg 26.1 - 33.3 pg [facility] MCHC (RBC) [Mass/Vol] 32.8 g/dL 31.9 - 36.5 g/dL [facility] MCV (RBC) [Entitic vol] 95.9 fL High 79.0 - 94.5 fL [facility] Monocytes (Bld) [#/Vol] 0.62 10*3/uL 0.24 - 0.93 K/uL [facility] Monocytes/100 WBC (Bld) 9.7 % [facility] Neutrophils (Bld) [#/Vol] 4.69 10*3/uL 1.57 - 6.19 K/uL [facility] Nucleated RBC/100 WBC (Bld) [Ratio] 0.0 % <=0.2 /100 WBC [facility] Platelet mean volume (Bld) [Entitic vol] 9.7 fL 8.7 - 12.3 fL [facility] Platelets (Bld) [#/Vol] 192 10*3/uL 146 - 337 K/uL [facility] RBC (Bld) [#/Vol] 3.40 10*6/uL Low [facility] Segmented neutrophils/100 WBC (Bld) 73.7 % [facility] WBC (Bld) [#/Vol] 6.37 10*3/uL 3.73 - 10. 10 K/uL [facility] CHEM 7 (LYTES,BUN,CREA,GLUC) on 03-06-2022 Anion gap [Moles/Vol] 14 mmol/L Normal 7-17 [facility] Comment on above: Performed By: #### B ILTO, IPB, URICB, TP #### [facility] (DEFAULT) [address] [place] [address] 89641 Chloride [Moles/Vol] 98 mmol/L Normal 98-108 [facility] Comment on above: Performed By: #### B ILTO, IPB, URICB, TP #### [facility] (DEFAULT) [address] [place] [address] 34497 CO2 [Moles/Vol] 33 mmol/L High 21-31 [facility] Comment on above: Performed By: #### B ILTO, IPB, URICB, TP #### [facility] (DEFAULT) [address] [place] [address] 81415 Creatinine [Mass/Vol] 5.09 mg/dL High 0.70-1.30 [facility] Comment on above: Performed By: #### B ILTO, IPB, URICB, TP #### [facility] (DEFAULT) [address] [place] [address] 32968 GFR/1.73 sq M.predicted among non-blacks MDRD (S/P/Bld) [Vol rate/Area] 12 mL/min/{1.73_m2} Low >=60 [facility] Comment on above: Result Comment: Repo rted eGFR is based on the CKD-EPI 2020 equation using creatinine, age, and sex. Performed By: #### B ILTO, IPB, URICB, TP #### [facility] (DEFAULT) [address] [place] [address] 85365 Glucose [Mass/Vol] 118 mg/dL High 70-99 [facility] Comment on above: Performed By: #### B ILTO, IPB, URICB, TP #### [facility] (DEFAULT) [address] [place] [address] 52562 Osmolality [Osmolality] 308 mosm/kg High 278-305 [facility] Comment on above: Performed By: #### B ILTO, IPB, URICB, TP #### [facility] (DEFAULT) [address] [place] [address] 11023 Potassium [Moles/Vol] 4.8 mmol/L Normal 3.5-5.0 [facility] Comment on above: Performed By: #### B ILTO, IPB, URICB, TP #### [facility] (DEFAULT) [address] [place] [address] 38469 Sodium [Moles/Vol] 140 mmol/L Normal 135-145 [facility] Comment on above: Performed By: #### B ILTO, IPB, URICB, TP #### [facility] (DEFAULT) [address] [place] [address] 47414 Urea nitrogen [Mass/Vol] 48 mg/dL High 7-25 [facility] Comment on above: Performed By: #### B ILTO, IPB, URICB, TP #### [facility] (DEFAULT) [address] [place] [address] 53533 Urea nitrogen/Creatinine [Mass ratio] 9 mg/mg Normal [facility] Comment on above: Performed By: #### B ILTO, IPB, URICB, TP #### [facility] (DEFAULT) [address] [place] [address] 59148 Anion gap [Moles/Vol] 14 mmol/L 7 - 17 mmol/L [facility] Chloride [Moles/Vol] 98 mmol/L 98 - 10 8 mmol/L [facility] CO2 [Moles/Vol] 33 mmol/L High 21 - 31 mmol/L [facility] Creatinine [Mass/Vol] 5.09 mg/dL High 0.70 - 1.30 mg/dL [facility] GFR/1.73 sq M.predicted CKD-EPI (S/P/Bld) [Vol rate/Area] 12 Low >=60 mL/min/1.73m 2 [facility] Comment on above: Reported eGFR is bas ed on the CKD-EPI 2020 equation using creatinine, age, and sex. Glucose [Mass/Vol] 118 mg/dL High 70 - 99 mg/dL [facility] Osmolality Calc [Osmolality] 308 High [facility] Potassium [Moles/Vol] 4.8 mmol/L 3.5 - 5.0 mmol/L [facility] Sodium [Moles/Vol] 140 mmol/L 135 - 145 mmol/L [facility] Urea nitrogen [Mass/Vol] 48 mg/dL High 7 - 25 mg/dL [facility] Urea nitrogen/Creatinine [Mass ratio] 9 mg/mg [facility] CMV IGG ABon 03-06-2022 CMV IgG Antibody Positive Abnormal Negative [facility] Comment on above: Performed By: #### B ILTO, IPB, URICB, TP #### [facility] (DEFAULT) [address] [place] [address] 87324 EBV VCA IGG ABon 03-06-2022 EBV VCA IgG Antibody Positive Abnormal Negative [facility] Comment on above: Performed By: #### H SVM, HSVG12, EBVG, VZISB #### [facility] (DEFAULT) [address] [place] [address] 99285 GGTon 03-06-2022 Gamma glutamyl transferase [Catalytic activity/Vol] 13 U/L Normal 8-64 [facility] Comment on above: Performed By: #### B ILTO, IPB, URICB, TP #### [facility] (DEFAULT) [address] [place] [address] 37189 Gamma glutamyl transferase [Catalytic activity/Vol] 13 U/L 8 - 64 U/L [facility] HBV core IgG+IgM Ql (S)on Interpretation and review of laboratory results Normal [facility] HEMOGLOBIN A1Con 03-06-2022 Glucose [Mass/Vol] 137 mg/dL Normal [facility] Comment on above: Performed By: #### A 1CB #### [facility] (DEFAULT) [address] [place] [address] 65528 HbA1c (Bld) [Mass fraction] 6.4 % High 4.7-5.6 [facility] Comment on above: Performed By: #### A 1CB #### [facility] (DEFAULT) [address] [place] [address] 41420 HEMOGLOBIN [id number] By: Lisandro Heart on 03-06-2022 Average glucose Estimated from glycated hemoglobin (Bld) [Mass/Vol] 137 mg/dL [facility] HbA1c (Bld) [Mass fraction] 6.4 % High 4.7 - 5.6 % [facility] Interpretation and review of laboratory results Abnormal [facility] HEP B CORE AB,TOTAL(IGG+IGM) on 03-06-2022 HBV core IgG+IgM Ql (S) Negative Negative [facility] Hep B Core Ab,Total (IgG+IgM) Negative Normal Negative [facility] Comment on above: Performed By: #### B ILTO, IPB, URICB, TP #### [facility] (DEFAULT) [address] [place] [address] 19264 HEPATITIS B SURFACE ANTIBODY on 03-06-2022 HBV surface Ab IA Ql (S) Negative Negative [facility] Interpretation and review of laboratory results Normal [facility] Hep B Surface Ab Negative Normal Negative [facility] Comment on above: Performed By: #### B ILTO, IPB, URICB, TP #### [facility] (DEFAULT) [address] [place] [address] 89897 HEPATITIS B SURFACE ANTIGENO rdered By: Edelmira English on 03-06-2022 HBV surface Ag Ql (S) Negative Negative [facility] Interpretation and review of laboratory results Normal [facility] HEPATITIS B SURFACE ANTIGENo n 03-06-2022 Hepatitis B Surface Ag Negative Normal Negative [facility] Comment on above: Performed By: #### B ILTO, IPB, URICB, TP #### [facility] (DEFAULT) [address] [place] [address] 33310 HEPATITIS C ANTIBODYon 03-06 HCV Ab Ql (S) Negative Negative [facility] Interpretation and review of laboratory results Normal [facility] C Antibody Negative Normal Negative [facility] Comment on above: Performed By: #### B ILTO, IPB, URICB, TP #### [facility] (DEFAULT) [address] [place] [address] 36230 HIV 1 AND 2 ANTIBODIESon HIV 1+2 Ab+HIV1 p24 Ag IA Ql Non-Reactive Non Reactive [facility] HIV-1/HIV-2 Ab With p24 Antigen Non-Reactive Normal Non Reactive [facility] Comment on above: Performed By: #### B ILTO, IPB, URICB, TP #### [facility] (DEFAULT) [address] [place] [address] HIV 1+2 Ab+HIV1 p24 Ag IA Ql on 03-06-2022 Interpretation and review of laboratory results Normal [facility] HLA TYPING (SOLID ORGAN)on 0 03-06-2022 A 1,1 Normal [facility] Comment on above: Performed By: #### B ILTO, IPB, URICB, TP #### [facility] (DEFAULT) [address] [place] [address] 87435 B 8,27 Normal [facility] Comment on above: Performed By: #### B ILTO, IPB, URICB, TP #### [facility] (DEFAULT) [address] [place] [address] 77986 BW 6,4 [facility] Comment on above: Performed By: #### B ILTO, IPB, URICB, TP #### [facility] (DEFAULT) [address] [place] [address] 07114 C 2,7 [facility] Comment on above: Performed By: #### B ILTO, IPB, URICB, TP #### [facility] (DEFAULT) [address] [place] [address] 28310 DPB1* DPB11 - [facility] Comment on above: Performed By: #### B ILTO, IPB, URICB, TP #### [facility] (DEFAULT) [address] [place] [address] 16862 DPB1*DPB1A 03:01 [facility] Comment on above: Performed By: #### B ILTO, IPB, URICB, TP #### [facility] (DEFAULT) [address] [place] [address] 08200 DQA1* 02 [facility] Comment on above: Performed By: #### B ILTO, IPB, URICB, TP #### [facility] (DEFAULT) [address] [place] [address] 19183 DQA1*DQA11 05 [facility] Comment on above: Performed By: #### B ILTO, IPB, URICB, TP #### [facility] (DEFAULT) [address] [place] [address] 67883 DQB1 2,8 [facility] Comment on above: Performed By: #### B ILTO, IPB, URICB, TP #### [facility] (DEFAULT) [address] [place] [address] 11138 DQB1* 02 [facility] Comment on above: Performed By: #### B ILTO, IPB, URICB, TP #### [facility] (DEFAULT) [address] [place] [address] 35716 DQB1* - DQB11 03 [facility] Comment on above: Performed By: #### B ILTO, IPB, URICB, TP #### [facility] (DEFAULT) [address] [place] [address] 17,7 [facility] Comment on above: Performed By: #### B ILTO, IPB, URICB, TP #### [facility] (DEFAULT) [address] [place] [address] 96774 DR51,52,53 52,53 [facility] Comment on above: Performed By: #### B ILTO, IPB, URICB, TP #### [facility] [facility] (DEFAULT) [address] [place] [address]998 DRB1* 03 [facility] Comment on above: Performed By: #### B ILTO, IPB, URICB, TP #### U [facility] (DEFAULT) [address] [place] [address] 25266 DRB1* - DRB11 07 [facility] Comment on above: Performed By: #### B ILTO, IPB, URICB, TP #### U [facility] (DEFAULT) [address] [place] [address] 25304 DRB3* 01 [facility] Comment on above: Performed By: #### B ILTO, IPB, URICB, TP #### U [facility] (DEFAULT) [address] [place] [address] 24732 DRB4* 01 [facility] Comment on above: Performed By: #### B ILTO, IPB, URICB, TP #### U [facility] (DEFAULT) [address] [place] [address] 35434 HLA A* 01 [facility] Comment on above: Performed By: #### B ILTO, IPB, URICB, TP #### U [facility] (DEFAULT) [address] [place] [address] 20876 HLA A* - HLAAA 01 [facility] Comment on above: Performed By: #### B ILTO, IPB, URICB, TP #### U [facility] (DEFAULT) [address] [place] [address] 74763 HLA B* 08 [facility] Comment on above: Performed By: #### B ILTO, IPB, URICB, TP #### [facility] (DEFAULT) [address] [address] HLA B* - HLABBB 27 Normal [facility] Comment on above: Performed By: #### B ILTO, IPB, URICB, TP #### U [facility] (DEFAULT) [address] [address] HLA C* 02 Normal [facility] Comment on above: Performed By: #### B ILTO, IPB, URICB, TP #### [facility] (DEFAULT) [address] [address] HLA C* - HLACC 07 Normal [facility] Comment on above: Performed By: #### B ILTO, IPB, URICB, TP #### U [facility] (DEFAULT) [address] [address] HLA INTERPRETATION Normal [facility] Comment on above: Result Comment: LIST ED AMBIGUITIES ARE NOT EXCLUDED: DPB1*14:01/104:01/727:01/760:01/792:01N/829:01/876:01N/883:01/91 7:01N/938:01/946:01/948:01/950:01N/952:01/970:01/983:08/999:01/ 1014:08/1029:08/1040:01N/1049:08/1070:08/1089:08/1092:08/1097:01 N/1114:08/1115:08/1124:08/1133:08/1156:08/1201:01N/1254:08/1262: 08/1268:01N Testing performed by SSOP (sequence specific oligonucleotide probe methodology). Additional testing may be performed by SSP (sequence specific primer), and or SBT (sequence based typing) methodologies.Some of the reagents used for testing in the Clinical Histocompatibility Laboratory have yet to be approved by the FDA. Our certification by CLIA to perform high complexity tests allows us to use these reagents in the context of a stringent QC program, and obviates the need for FDA approval.Testing performed by the [facility] Clinical Histocompatibility Laboratory. [facility] number: [id number]. [place] number: [id number], Director: Robbin Neff, PhD, D([facility]). Performed By: #### B ILTO, IPB, URICB, TP #### [facility] (DEFAULT) [address] [place] [address] HSV 1 AND 2 IGG ANTIBODYon 0 03-06-2022 HSV 1 IgG Antibody Positive Abnormal Negative [facility] Comment on above: Performed By: #### H SVM, HSVG12, EBVG, VZISB #### [facility] (DEFAULT) [address] [place] [address] 07887 HSV 2 IgG Antibody Negative Normal Negative [facility] Comment on above: Performed By: #### H SVM, HSVG12, EBVG, VZISB #### [facility] (DEFAULT) [address] [place] [address] 48755 HSV IGM ANTIBODYon 2 HSV I/II IgM Antibody Negative Normal Negative [facility] Comment on above: Performed By: #### H SVM, HSVG12, EBVG, VZISB #### [facility] (DEFAULT) [address] [place] [address] 064[address] MAGNESIUMon 03-06-2022 Magnesium [Mass/Vol] 2.0 mg/dL Normal 1.6-2.6 [facility] Comment on above: Performed By: #### B ILTO, IPB, URICB, TP #### [facility] (DEFAULT) [address] [place] [address]1111 Magnesium [Mass/Vol] 2.0 mg/dL 1.6 - 2 .6 mg/dL [facility] No Panel Informationon 03-06 ABO/RH(D) TYPE Negative [facility] Interpretation and review of laboratory results Normal [facility] Interpretation and review of laboratory results Abnormal [facility] Interpretation and review of laboratory results Normal [facility] OSMOLALITYon 03-06-2022 Osmolality [Osmolality] 312 mosm/kg High 278-305 [facility] Comment on above: Performed By: #### B REGAN MENA URICLeslye, TP #### [facility] (DEFAULT) [address] [place] [address] OSMOLALITYOrdered By: Staci beck on 03-06-2022 Interpretation and review of laboratory results Abnormal [facility] Osmolality [Osmolality] 312 mosm/kg High [facility] PHOSPHATE, INORGANICon 03-06 Phosphorous 4.0 mg/dL Normal 2.2-4.6 [facility] Comment on above: Performed By: #### B REGAN MENA URICLeslye, TP #### [facility] (DEFAULT) [address] [place] [address] 26645 Phosphate [Mass/Vol] 4.0 mg/dL 2.2 - 4 .6 mg/dL [facility] PROTEIN TOTALon 03-06-2022 Protein [Mass/Vol] 7.2 g/dL Normal 6.4-8.3 [facility] Comment on above: Performed By: #### B REGAN MENA URICB, TP #### [facility] (DEFAULT) [address] [place] [address]46 Protein [Mass/Vol] 7.2 g/dL 6.4 - 8.3 g/dL [facility] PT,INR,PTTon 03-06-2022 aPTT Coag (Bld) [Time] 30.4 s Normal 24.0-34.3 [facility] Comment on above: Performed By: #### B INA MENAB, URICB, TP #### [facility] (DEFAULT) [address] [place] [address] 76848 INR Coag (PPP) [Relative time] 1.1 {INR} Normal 0.9-1.1 [facility] Comment on above: Performed By: #### B REGAN MENA, URICB, TP #### [facility] (DEFAULT) [address] [place] [address] 23532 PT Coag (PPP) [Time] 13.8 s Normal 11.9-14.2 [facility] Comment on above: Performed By: #### B ILTO, IPB, URICB, TP #### [facility] (DEFAULT) [address] [place] [address] 94092 aPTT Coag (PPP) [Time] 30.4 s [facility] INR Coag (Bld) [Relative time] 1.1 {INR} [facility] Interpretation and review of laboratory results Normal [facility] PT Coag (PPP) [Time] 13.[address] [facility] PTH INTACTon 03-06-2022 Interpretation and review of laboratory results Abnormal [facility] Parathyrin.intact [Mass/Vol] 290.0 pg/mL High 14.0 - 72.0 pg/mL [facility] Intact PTH 290.0 pg/mL High 14.0-72.0 [facility] Comment on above: Performed By: #### B ILTO, IPB, URICB, TP #### [facility] (DEFAULT) [address] [place] [address]80 TOXICOLOGY DRUG SCREEN, SERU MOrdered By: Maria Carvajal on 03-06-2022 Barbiturates Ql (U) Negative Cutoff: 1000 ng/mL [facility] Drugs of abuse panel Screen (Bld) Negative Negative [facility] Interpretation and review of laboratory results Normal [facility] For Medical Purposes Only. Nonforensic screen results are considered presumptive and no confirmatory testing will follow. Drugs are detected by immunoassay or Liquid Chromatography Mass Spectrometry (LC-MS/MS). The LC-MS/MS test was developed and its performance characteristics determined by the Toxicology Laboratory at [facility]. It has not been cleared or approved by the FDA. The laboratory is regulated under CLIA as qualified to perform high-complexity testing. This test is used for clinical purposes and should not be regarded as investigational or for research. The following drugs with their lowest level of detection in ng/ml(LOD) are included in this screen: 6 Monoacetylmorphine(300),7 Aminoflunitrazepam(25),7 Aminoclonazepam(50),7 hydroxymitragynine(100),Al phahydroxymidazolam (200), Alphahydrozyalprazolam(200 ), Alprazolam(50), Amitriptyline(50), Amphetamine(250), Atenolol(500), Benzoylecgonine(50), Buprenorphine(100), Bupropion(25),Caffeine(150 00),Chlordiazepoxide(50), Chlorpheniramine(100), Chlorpromazine(50), Citalopram(100), Clonazepam(200), Cocaine(25),Codeine(200), Cotinine(500),Desipramine( 50), Desmethyldoxepin(100), Dextromethorphan(100),Torres epam(100),Dihydrocodeine(1 00),Diltazem(50),Diphenhyd ramine(100),Doxepin(100),E DDP/methadone(100), Ephedrine/Pseudoephedrine( 100),Fentanyl(25),Flunitra zepam(100),Fluoxetine(200) , Flurazepam(50),Gabapentin( 1500), Haloperidol(25), Hydrocodone(100), Hydromorphone(200), Imipramine(50), Ketamine(25), Lidocaine(25),Lorazepam(10 0), Lysergide(LSD)(25),Maproti line(200),MDA(250),MDMA(25 0),Meperidine(50),Midazola m (200),Methadone(50), Methamphetamine(500), Methylphenidate(50), Metoprolol(50), Morphine(200),Nalbuphine(5 0), Naloxone(200), Norbuprenorphine(300), Nordiazepam(100), Norfentanyl(50),Noroxycodo ne (100), Norpropoxyphene(50), Nortriptyline(50),Olanzapi ne(200),Oxazepam(200),Oxyc odone(100),Oxymorphone(200 ), Phencyclidine(PCP)(25), Pheniramine(25), Pregabalin(1500), Promethazine(50), Propoxyphene(100), Propanolol(50), Quetiapine(25), Quinidine(500), Ranitidine(500), Risperidone(100), Sertraline(50),Temazepam(1 00), Thioridazine(100), Tramadol(50), Trazodone(25), Triazolam(100), Trifluoperazine (100),Venlafaxine(50), Verapamil(100), Zolpidem(200) [facility] TOXICOLOGY DRUG SCREEN, SERU 03-06-2022 Barbiturates Negative Normal Cutoff: 1000 ng/mL [facility] Comment on above: Order Comment: For M edical Purposes Only. Nonforensic screen results are considered presumptive and no confirmatory testing will follow. Drugs are detected by immunoassay or Liquid Chromatography Mass Spectrometry (LC-MS/MS). The LC-MS/MS test was developed and its performance characteristics determined by the Toxicology Laboratory at [facility]. It has not been cleared or approved by the FDA. The laboratory is regulated under CLIA as qualified to perform high-complexity testing. This test is used for clinical purposes and should not be regarded as investigational or for research. The following drugs with their lowest level of detection in ng/ml(LOD) are included in this screen: 6 Monoacetylmorphine(300),7 Aminoflunitrazepam(25),7 Aminoclonazepam(50),7 hydroxymitragynine(100),Alphahydroxymidazolam (200), Alphahydrozyalprazolam(200), Alprazolam(50), Amitriptyline(50), Amphetamine(250), Atenolol(500), Benzoylecgonine(50), Buprenorphine(100), Bupropion(25),Caffeine(77049),Chlordiazepoxide(50), Chlorpheniramine(100), Chlorpromazine(50), Citalopram(100), Clonazepam(200), Cocaine(25),Codeine(200), Cotinine(500),Desipramine(50), Desmethyldoxepin(100), Dextromethorphan(100),Diazepam(100),Dihydrocodeine(100),Diltazem (50),Diphenhydramine(100),Doxepin(100),EDDP/methadone(100), Ephedrine/Pseudoephedrine(100),Fentanyl(25),Flunitrazepam(100),F luoxetine(200), Flurazepam(50),Gabapentin(1500), Haloperidol(25), Hydrocodone(100), Hydromorphone(200), Imipramine(50), Ketamine(25), Lidocaine(25),Lorazepam(100), Lysergide(LSD)(25),Maprotiline(200),MDA(250),MDMA(250),Meperidin e(50),Midazolam (200),Methadone(50), Methamphetamine(500), Methylphenidate(50), Metoprolol(50), Morphine(200),Nalbuphine(50), Naloxone(200), Norbuprenorphine(300), Nordiazepam(100), Norfentanyl(50),Noroxycodone (100), Norpropoxyphene(50), Nortriptyline(50),Olanzapine(200),Oxazepam(200),Oxycodone(100),O xymorphone(200), Phencyclidine(PCP)(25), Pheniramine(25), Pregabalin(1500), Promethazine(50), Propoxyphene(100), Propanolol(50), Quetiapine(25), Quinidine(500), Ranitidine(500), Risperidone(100), Sertraline(50),Temazepam(100), Thioridazine(100), Tramadol(50), Trazodone(25), Triazolam(100), Trifluoperazine (100),Venlafaxine(50), Verapamil(100), Zolpidem(200) Performed By: #### S ERDRG #### [facility] (DEFAULT) [address] [place] [address] Drugs Detected Negative Normal Negative [facility] Comment on above: Order Comment: For M edical Purposes Only. Nonforensic screen results are considered presumptive and no confirmatory testing will follow. Drugs are detected by immunoassay or Liquid Chromatography Mass Spectrometry (LC-MS/MS). The LC-MS/MS test was developed and its performance characteristics determined by the Toxicology Laboratory at [facility]. It has not been cleared or approved by the FDA. The laboratory is regulated under CLIA as qualified to perform high-complexity testing. This test is used for clinical purposes and should not be regarded as investigational or for research. The following drugs with their lowest level of detection in ng/ml(LOD) are included in this screen: 6 Monoacetylmorphine(300),7 Aminoflunitrazepam(25),7 Aminoclonazepam(50),7 hydroxymitragynine(100),Alphahydroxymidazolam (200), Alphahydrozyalprazolam(200), Alprazolam(50), Amitriptyline(50), Amphetamine(250), Atenolol(500), Benzoylecgonine(50), Buprenorphine(100), Bupropion(25),Caffeine(41079),Chlordiazepoxide(50), Chlorpheniramine(100), Chlorpromazine(50), Citalopram(100), Clonazepam(200), Cocaine(25),Codeine(200), Cotinine(500),Desipramine(50), Desmethyldoxepin(100), Dextromethorphan(100),Diazepam(100),Dihydrocodeine(100),Diltazem (50),Diphenhydramine(100),Doxepin(100),EDDP/methadone(100), Ephedrine/Pseudoephedrine(100),Fentanyl(25),Flunitrazepam(100),F luoxetine(200), Flurazepam(50),Gabapentin(1500), Haloperidol(25), Hydrocodone(100), Hydromorphone(200), Imipramine(50), Ketamine(25), Lidocaine(25),Lorazepam(100), Lysergide(LSD)(25),Maprotiline(200),MDA(250),MDMA(250),Meperidin e(50),Midazolam (200),Methadone(50), Methamphetamine(500), Methylphenidate(50), Metoprolol(50), Morphine(200),Nalbuphine(50), Naloxone(200), Norbuprenorphine(300), Nordiazepam(100), Norfentanyl(50),Noroxycodone (100), Norpropoxyphene(50), Nortriptyline(50),Olanzapine(200),Oxazepam(200),Oxycodone(100),O xymorphone(200), Phencyclidine(PCP)(25), Pheniramine(25), Pregabalin(1500), Promethazine(50), Propoxyphene(100), Propanolol(50), Quetiapine(25), Quinidine(500), Ranitidine(500), Risperidone(100), Sertraline(50),Temazepam(100), Thioridazine(100), Tramadol(50), Trazodone(25), Triazolam(100), Trifluoperazine (100),Venlafaxine(50), Verapamil(100), Zolpidem(200) Performed By: #### S ERDRG #### [facility] (DEFAULT) [address] [address] TYPE AND SCREENon 03-06-2022 ABO/RH(D) TYPE Negative Normal [facility] Comment on above: Performed By: #### B ILTO, IPB, URICB, TP #### [facility] (DEFAULT) [address] [place] [address] URIC ACIDon 03-06-2022 Urate [Mass/Vol] 5.6 mg/dL Normal 3.5-7.0 [facility] Comment on above: Performed By: #### B ILTO, IPB, URICB, TP #### [facility] (DEFAULT) [address] [place] [address] 80145 Urate [Mass/Vol] 5.6 mg/dL 3.5 - 7.0 mg/dL [facility] VARICELLA IGG AB (IMM STATUS )on 03-06-2022 Varicella Immune Status IgG Antibody Positive Normal Positive [facility] Comment on above: Result Comment: Prio r exposure to the varicella zoster virus may cause measurable varicella zoster IgG antibody. Performed By: #### H SVM, HSVG12, EBVG, VZISB #### [facility] (DEFAULT) [address] [place] [address] 94679 Varicella Immune Status IgG Index 1.1 Normal [facility] Comment on above: Result Comment: THIS IS A QUALITATIVE ASSAY. The numeric value is not necessarily indicative of the amount of anti-Measles, Mumps, Rubella, or VZV IgG antibody present. Results should be interpreted in conjunction with clinical and epidemological data. Performed By: #### H SVM, HSVG12, EBVG, VZISB #### [facility] (DEFAULT) [address] [place] [address] 08999 Glucose,Bedsideon 02-25-2021 Glucose [Mass/Vol] 96 mg/dL Normal 70-100 [facility] Comment on above: Result Comment: Test performed by glucose meter. Results may be 10%-15% lower than serum/plasma values. (CLIA ID [id number]) Performed By: #### B GLU #### [employer] [facility] [address] [place] [address] Glucose [Mass/Vol] 94 mg/dL Normal 70-100 [facility] Comment on above: Result Comment: Test performed by glucose meter. Results may be 10%-15% lower than serum/plasma values. (CLIA ID [id number]) Performed By: #### B GLU #### [employer] [address] [place] [address] Op Noteon 02-25-2021 Op Note PATIENT: Simeon QUINONES DUC Farhana ADMISSION DATE: 02/25/2021 SURGERY DATE: 02/25/2021 DATE OF : 1955 AGE: 65 ADMITTING PHYSICIAN: Nick Mancilla MD ATTENDING PHYSICIAN: Nick Mancilla MD DICTATING PHYSICIAN: Nick Mancilla MD OPERATIVE RECORD Procedure: SECOND-STAGE LEFT BASILIC TRANSPOSITION ARTERIOVENOUS FISTULA. Preoperative Diagnosis: End-stage renal disease, status post first-stage left brachial basilic arteriovenous fistula creation. Postoperative Diagnosis: End-stage renal disease, status post first-stage left brachial basilic arteriovenous fistula creation. Anesthesia: Regional block. Resident Surgeon: None. Estimated Blood Loss: 10 cc. Indications: The patient is a 65-year-old gentleman with multiple comorbidities and end-stage renal disease on hemodialysis by catheter. He underwent a first-stage left brachial basilic arteriovenous fistula. This was patent by duplex. He presents now for transposition for access. Description of Procedure: After informed consent, the patient was brought to the operating room and placed supine. After placement of regional block and IV sedation, the left upper extremity was prepped and draped circumferentially in sterile fashion. IV Ancef was given prior to skin incision for antibiotic prophylaxis. There was palpable thrill, starting at the antecubital fossa. Longitudinal incision was made from the antecubital fossa over the fistula to near the axilla. The basilic vein fistula was identified. This was a matured, measuring approximately 6-7 mm in diameter with strong thrill. The fistula was dissected for this entire length dividing side branches between hemoclips and silk ligatures. The underlying artery and nerves were preserved. There was sufficient slack in the vein to avoid reanastomosis. A subcutaneous pocket was then created more lateral. The fistula was placed in this bed and secured in place with interrupted 3-0 Vicryl sutures. There was palpable thrill following the sutures. The wound was irrigated. After ensuring meticulous hemostasis, subcutaneous tissue was approximated with running 3-0 Vicryl sutures. Skin was closed with running 4-0 Monocryl subcuticular suture. Steri-Strips and sterile dressing was applied. There was palpable thrill after placement of the dressings. There was palpable radial pulse. The counts were correct at the end of the case. The patient tolerated the procedure well transferred to recovery room in stable condition. [employer] Job ID: [id number] Nick Mancilla MD DOD:02/25/2021 09:27 A BJORN/herman DOT:02/25/2021 10:23 A Job Number: [id number] Document Number: [id number] cc: Nick Mancilla MD [facility] [address] [place] [address] Normal [facility] Potassiumon 02-25-2021 Potassium [Moles/Vol] 4.4 mmol/L Normal 3.5-5.1 [facility] Comment on above: Performed By: #### K 3 #### [facility] [address] [place] [address] Basic Metabolic Panelon 01-26 Calcium [Mass/Vol] 9.4 mg/dL Normal 8.4-10.4 [facility] Comment on above: Performed By: #### B MP3, HEMOG ####[facility] [employer] [place] [address] Glucose [Mass/Vol] 171 mg/dL High 70-100 [facility] Comment on above: Performed By: #### B MP3, HEMOG ####[facility] [employer] [address] [place] [address] Anion gap [Moles/Vol] 5 mmol/L Normal 3-13 [facility] Comment on above: Performed By: #### B MP3, HEMOG ####[facility] [employer] [address] [place] [address] CO2 [Moles/Vol] 31 mmol/L High 22-30 [facility] Comment on above: Performed By: #### B MP3, HEMOG ####[facility] [employer] [address] [place] [address] Creatinine [Mass/Vol] 4.14 mg/dL High 0.52-1.25 [facility] Comment on above: Performed By: #### B MP3, HEMOG ####[facility] [address] [place] [address] GFR/1.73 sq M.predicted among blacks MDRD (S/P/Bld) [Vol rate/Area] 16.6 mL/min/{1.73_m2} Abnormal >60 [facility] Comment on above: Performed By: #### B MP3, HEMOG ####[facility] [place] [address] GFR/1.73 sq M.predicted among non-blacks MDRD (S/P/Bld) [Vol rate/Area] 14.3 mL/min/{1.73_m2} Abnormal >60 [facility] Comment on above: Result Comment: KDIG O guidelines provide the following GFR categories: Stage GFR(ml/min/1.73 m2) Terms G1 >=90 Normal or high G2 60-89 Mildly decreased* G3a 45-59 Mildly to moderately decreased G3b 30-44 Moderately to severely decreased G4 15-29 Severely decreased G5 <15 Kidney failure *Relative to young adult level. In the absence of evidence of kidney damage, neither GFR category G1 nor G2 fulfill the criteria for CKD. The CKD-EPI equation is validated in individuals 18 years of age and older. Currently the best equation for estimating glomerular filtration rate (GFR) from serum creatinine in children is the Bedside Sheppard equation. It is less accurate in patients with extremes of muscle mass, restriction of dietary protein, ingestion of creatine, extra-renal metabolism of creatinine, or treatment with medications that affect renal tubular creatinine secretion. Performed By: #### Leslye MP3, HEMOG ####[facility] [place] [address] Urea nitrogen [Mass/Vol] 46 mg/dL High 7-20 [facility] Comment on above: Performed By: #### Leslye MP3, HEMOG ####[facility] [place] [address] Chloride [Moles/Vol] 100 mmol/L Normal 98-107 [facility] Comment on above: Performed By: #### B MP3, HEMOG ####[facility] [place] [address] Potassium [Moles/Vol] 4.9 mmol/L Normal 3.5-5.1 [facility] Comment on above: Performed By: #### B MP3, HEMOG ####[facility] [place] [address] Sodium [Moles/Vol] 135 mmol/L Normal 135-145 [facility] Comment on above: Performed By: #### B MP3, HEMOG ####[facility] [place] [address] Hemogramon 02-21-2021 Erythrocyte distribution width (RBC) [Ratio] 18.0 % High 11.5-14.5 [facility] Comment on above: Performed By: #### B MP3, HEMOG ####[facility] [place] [address] Hematocrit (Bld) [Volume fraction] 33.5 % Low 40.0-52.0 [facility] Center Comment on above: Performed By: #### B MP3, HEMOG ####[facility] [place] [address] Hemoglobin (Bld) [Mass/Vol] 11.3 g/dL Low 13.0-18.0 [facility] Comment on above: Performed By: #### B MP3, HEMOG ####[place] [address] [place] [address] MCH (RBC) [Entitic mass] 31.0 pg Normal 26.0-34.0 [facility] Comment on above: Performed By: #### B MP3, HEMOG ####[facility] [place] [address] MCHC 33.7 % Normal 32.0-36.0 [facility] Comment on above: Performed By: #### B MP3, HEMOG ####[place] [address] [place] [address] MCV (RBC) [Entitic vol] 92.0 fL Normal 80.0-98.0 [facility] Comment on above: Performed By: #### B MP3, HEMOG ####[place] [address] [place] [address] Platelet mean volume (Bld) [Entitic vol] 7.4 fL Normal 7.4-10.4 [facility] Comment on above: Performed By: #### B MP3, HEMOG ####[place] [address] [place] [address] Platelets (Bld) [#/Vol] 218 10*3/uL Normal 140-440 [facility] Comment on above: Performed By: #### B MP3, HEMOG ####[facility] [employer] [address] [place] [address] RBC (Bld) [#/Vol] 3.64 10*6/uL Low 4.40-5.90 [facility] Comment on above: Performed By: #### B MP3, HEMOG ####[facility] [address] [place] [address] WBC (Bld) [#/Vol] 7.1 10*3/uL Normal 3.6-10.7 [facility] Comment on above: Performed By: #### B MP3, HEMOG ####[facility] [employer] [address] [place] [address] VL Arterial Duplex US Hemo D uplexon 01-26-2021 VL Arterial Duplex US Hemo Duplex Patient Name: MAURI QUINONES Ultrasound ACCESSION EXAM DATE/TIME PROCEDURE ORDERING PROVIDER [id number] 01/26/2021 14:13 EDT VL Arterial Duplex US NICK MANCILLA Hemo Duplex CPT code 43181 Reason For Exam (VL Arterial Duplex US Hemo Duplex) fistula not maturing Report [facility] Upper Extremity Hemodialysis Access Follow-up Evaluation Patient Stacie, : 1955 Study 01/26/2021 Name: Mauri Delcid (65yrs) Date: Patient [id number] Age: 65 Account: [id number] ID: Gender: M Loc: BP: Ordering Physician: Nick Mancilla MD Salmon Troll Fisher: Yajaira Sewell RDMS, RVT Interpreting Physician: Андрей Lawson M.D. Location: [facility] Indications: Avf failing to mature. Conclusions 1. Patent fistula with no evidence of stenosis 2. Small caliber mid fistula. 3. Flow volumes adequate, listed below 4. No significant branches identified History: Risk factors: ESRD. Study data: Upper extremity hemodialysis access followup evaluation. Grayscale 2D imaging, color Doppler imaging, and spectral Doppler analysis. Location: Vascular laboratory. Procedure: A vascular evaluation was performed with the patient in the supine position. Images were obtained using a Berrybenka E9 vascular ultrasound machine. Ultrasound Report Findings Subclavian arteries: Left brachial: There is a surgical arteriovenous fistula to the basilic vein. Arterial flow: + + --+ +---------+- + +Location +Diameter +PSV(cm/sec)+Flow +Comment + + +AP + +volume + + + + + +(mL/min) + + + + --+ +---------+- + +Inflow artery + +339 +---------+Heavily calcified. + + + --+ +---------+- + +Prox + +365 +---------+Calcification at + +anastomosis + + + +anastamosis site. + + + --+ +---------+- + +Prox fistula +0.60 cm +200 +1030 +Depth 0.62 cm. + +outflow + + + + + + + --+ +---------+- + +Mid fistula +0.48 cm +169 +1174 +Depth 0.48 cm. + +outflow + + + + + + + --+ +---------+- + +Distal fistula+0.74 cm +264 +1186 +Depth 0.17 cm. + +outflow + + + + + + + --+ +---------+- + Prepared and electronically signed by Андрей Lawson M.D. 01/26/2021 17:05 Final Dictated: 01/26/2021 5:06 pm Dictating Physician: АНДРЕЙ LAWSON Signed Date and Time: 01/26/2021 5:06 pm Signed by: АНДРЕЙ LAWSON Cardiovascular ACCESSION EXAM DATE/TIME PROCEDURE [id number] 01/26/2021 14:13 EDT VL Arterial Duplex US Hemo Duplex CPT code 03807 Reason For Exam (VL Arterial Duplex US Hemo Duplex) fistula not maturing Report [facility] Upper Extremity Hemodialysis Access Follow-up Evaluation Patient Stacie, : 1955 Study 01/26/2021 Cardiovascular Report Name: Mauri Delcid (65yrs) Date: Patient [id number] Age: 65 Account: [id number] ID: Gender: Aditya Loc: BP: Ordering Physician: Nick Mancilla MD Salmon Troll Fisher: Yajaira Sewell RDMS, RVT Interpreting Physician: Андрей Lawson M.D. Location: [facility] Indications: Avf failing to mature. Conclusions 1. Patent fistula with no evidence of stenosis 2. Small caliber mid fistula. 3. Flow volumes adequate, listed below 4. No significant branches identified History: Risk factors: ESRD. Study data: Upper extremity hemodialysis access followup evaluation. Grayscale 2D imaging, color Doppler imaging, and spectral Doppler analysis. Location: Vascular laboratory. Procedure: A vascular evaluation was performed with the patient in the supi (more content not included)... Normal [facility] VL Hemodialysis AccessOrdere d By: Nick Mancilla on 01-26-2021 [facility] Upper Extremity Hemodialysis Access Follow-up Evaluation Patient Stacie, : 1955 Study 01/26/2021 Name: Mauri Delcid (65yrs) Date: Patient [id number] Age: 65 Account: [id number] ID: Gender: M Loc: BP: Ordering Physician: Nick Mancilla MD Salmon Troll Fisher: Yajaira Sewell RDMS, RVT Interpreting Physician: Андрей Lwason M.D. Location: [facility] Indications: Avf failing to mature. Conclusions 1. Patent fistula with no evidence of stenosis 2. Small caliber mid fistula. 3. Flow volumes adequate, listed below 4. No significant branches identified History: Risk factors: ESRD. Study data: Upper extremity hemodialysis access followup evaluation. Grayscale 2D imaging, color Doppler imaging, and spectral Doppler analysis. Location: Vascular laboratory. Procedure: A vascular evaluation was performed with the patient in the supine position. Images were obtained using a Berrybenka E9 vascular ultrasound machine. Findings Subclavian arteries: Left brachial: There is a surgical arteriovenous fistula to the basilic vein. Arterial flow: + + --+ +---------+- + +Location +Diameter +PSV(cm/sec)+Flow +Comment + + +AP + +volume + + + + + +(mL/min) + + + + --+ +---------+- + +Inflow artery + +339 +---------+Heavily calcified. + + + --+ +---------+- + +Prox + +365 +---------+Calcification at + +anastomosis + + + +anastamosis site. + + + --+ +---------+- + +Prox fistula +0.60 cm +200 +1030 +Depth 0.62 cm. + +outflow + + + + + + + --+ +---------+- + +Mid fistula +0.48 cm +169 +1174 +Depth 0.48 cm. + +outflow + + + + + + + --+ +---------+- + +Distal fistula+0.74 cm +264 +1186 +Depth 0.17 cm. + +outflow + + + + + + + --+ +---------+- + Prepared and electronically signed by Андрей Lawson M.D. 01/26/2021 17:05 [facility] Work Phone: [place], [facility] Incoming Cardiology Results From Julio C/April - 01/26/2021 5:06 PM EDT [facility] Upper Extremity Hemodialysis Access Follow-up Evaluation Patient DO StacieB: 1955 Study 01/26/2021 Name: Mauri Delcid (65yrs) Date: Patient [id number] Age: 65 Account: [id number] ID: Gender: M Loc: BP: Ordering Physician: Nick Mancilla MD Salmon Troll Fisher: Yajaira Sewell RDMS, RVT Interpreting Physician: Андрей Lawson M.D. Location: [facility] Indications: Avf failing to mature. Conclusions 1. Patent fistula with no evidence of stenosis 2. Small caliber mid fistula. 3. Flow volumes adequate, listed below 4. No significant branches identified History: Risk factors: ESRD. Study data: Upper extremity hemodialysis access followup evaluation. Grayscale 2D imaging, color Doppler imaging, and spectral Doppler analysis. Location: Vascular laboratory. Procedure: A vascular evaluation was performed with the patient in the supine position. Images were obtained using a Berrybenka E9 vascular ultrasound machine. Findings Subclavian arteries: Left brachial: There is a surgical arteriovenous fistula to the basilic vein. Arterial flow: + + --+ +---------+- + +Location +Diameter +PSV(cm/sec)+Flow +Comment + + +AP + +volume + + + + + +(mL/min) + + + + --+ +---------+- + +Inflow artery + +339 +---------+Heavily calcified. + + + --+ +---------+- + +Prox + +365 +---------+Calcification at + +anastomosis + + + +anastamosis site. + + + --+ +---------+- + +Prox fistula +0.60 cm +200 +1030 +Depth 0.62 cm. + +outflow + + + + + + + --+ +---------+- + +Mid fistula +0.48 cm +169 +1174 +Depth 0.48 cm. + +outflow + + + + + + + --+ +---------+- + +Distal fistula+0.74 cm +264 +1186 +Depth 0.17 cm. + +outflow + + + + + + + --+ +---------+- + Prepared and electronically signed by Андрей Lawson M.D. 01/26/2021 17:05 [employer] Work Phone: [employer] Work Phone: Glucose,Bedsideon 2020 Glucose [Mass/Vol] 109 mg/dL High 70-100 [facility] [employer] [facility] Comment on above: Result Comment: Test performed by glucose meter. Results may be 10%-15% lower than serum/plasma values. (CLIA ID [id number]) Performed By: #### B GLU #### [facility] [address] [place] [address] Glucose [Mass/Vol] 101 mg/dL High 70-100 [facility] [employer] [facility] Comment on above: Result Comment: Test performed by glucose meter. Results may be 10%-15% lower than serum/plasma values. (CLIA ID [id number]) Performed By: #### B GLU #### [facility] [address] [facility] [place] [address] Op Noteon 2020 Op Note PATIENT: Simeon QUINONES ADMISSION DATE: 2020 SURGERY DATE: 2020 DATE OF : 1955 AGE: 65 ADMITTING PHYSICIAN: Nick Mancilla MD ATTENDING PHYSICIAN: Nick Mancilla MD DICTATING PHYSICIAN: Nick Mancilla MD OPERATIVE RECORD PROCEDURE: 1. EXPLORATION OF LEFT RADIAL ARTERY. 2. CREATION OF LEFT FIRST-STAGE BRACHIOBASILIC ARTERIOVENOUS FISTULA. PREOPERATIVE DIAGNOSIS: End-stage renal disease. POSTOPERATIVE DIAGNOSIS: End-stage renal disease. ANESTHESIA: Regional block. [employer] BUSINESS ANALYST: Candice Tellez PA-C. ESTIMATED BLOOD LOSS: 25 cc. INDICATIONS: This is a 65-year-old gentleman with a history of diabetes, hypertension, end-stage renal disease on hemodialysis by catheter. He was referred with vein mapping from another institution indicating good caliber bilateral cephalic veins. He is right handed. It was decided to proceed with a left radiocephalic fistula. FINDINGS: 1. Calcified unclampable left radial artery in the forearm. 2. Occluded left cephalic vein at the antecubital fossa. 3. Following creation of the first-stage left brachiobasilic fistula, there was a strong thrill with a strong Doppler signal over the fistula and strong radial and ulnar Doppler signals. DESCRIPTION OF PROCEDURE: After informed consent, the patient was brought to the operating room and placed supine. After regional block and IV sedation, the left upper extremity was prepped and draped circumferentially in sterile fashion. IV Ancef was given prior to skin incision for antibiotic prophylaxis. A longitudinal incision was made in the forearm between the radial artery and the cephalic vein. The vein was identified and ligated distally and flushed with heparinized saline. The fascia was opened. Radial artery was exposed. There was a strong Doppler signal in this artery. This artery was bone hard due to calcium. A pulse could not be palpated. This was encircled with the vessel loop. Tightening the vessel loop for clamping with a bulldog, did not eliminate the Doppler signal. This vessel was not clampable and this approach was abandoned. Transverse incision was made just below the left antecubital fossa. Cephalic vein was identified, ligated distally between hemoclips and divided. The vein was flushed with heparinized saline. This vein met resistance. The olive tip needle could not be inserted past approximately 1 cm. The vein was itself sclerotic at the point that it was transected. This cephalic vein was not usable for fistula and it was ligated with 2-0 silk ligatures. The basilic vein was identified and ligated distally. This vein was easily flushed with heparinized saline and felt to be suitable. The fascia was opened. The artery was exposed. This was also a calcified artery. Placement of bulldog to eliminate the Doppler signal. It was felt that this was usable. Heparin 3000 units was given intravenously. The proximal artery was occluded with bulldog distally with tight vessel loop. The artery was opened on its anterior surface with 11 blade, extended longitudinally with Lance scissors for approximately 5 mm. End-to-side anastomosis was created between the basilic vein and the artery with a running 6-0 Prolene suture. After flushing, final sutures were tied. Clamps and vessel loops were released. There was palpable thrill with a fistula. There was strong Doppler signal over the fistula. There was strong radial and ulnar Doppler signals at the wrist. The wounds were irrigated. Soft tissue was approximated with an interrupted 3-0 Vicryl sutures. Skin was closed, both incisions with running 4-0 Vicryl subcuticular sutures. Steri-Strips and sterile dressings were applied. The counts were correct at the end of the case. The patient tolerated the procedure well and was transferred to the recovery room in stable condition. Diskriter Job ID: [id number] Nick Mancilla MD DOD:2020 11:45 A BJORN/herman DOT:2020 01:28 P Job Number: [id number] Document Number: [id number] Normal [facility] POCT Glucoseon 2020 Glucose [Mass/Vol] 109 mg/dL High 70 - 100 mg/dL [facility] Work Phone: Comment on above: Test performed by gl ucose meter. Results may be 10%-15% lower than serum/plasma values. (CLIA ID [id number]) Interpretation and review of laboratory results Abnormal [facility] Work Phone: Test Performed by [facility], [address] [place], [place] [id number] [place] [address] Work Phone: Glucose [Mass/Vol] 101 mg/dL High 70 - 100 mg/dL [facility] Work Phone: Comment on above: Test performed by gl ucose meter. Results may be 10%-15% lower than serum/plasma values. (CLIA ID [id number]) Interpretation and review of laboratory results Abnormal [facility] Work Phone: Test Performed by [facility], [address] [place] [address] [facility] Work Phone: Potassiumon 2020 Potassium [Moles/Vol] 4.6 mmol/L Normal 3.5-5.1 [facility] Comment on above: Performed By: #### K 3 #### [facility] [address] [place] [address] Potassium [Moles/Vol] 4.6 mmol/L 3.5 - 5.1 mmol/L [facility] Work Phone: Test Performed by [facility], [address] [place] [address] [facility] Work Phone: Basic Metabolic Panelon 10-25 Anion gap [Moles/Vol] 7 mmol/L Normal 3-13 [facility] Comment on above: Performed By: #### B MP3, HEMOG #### [facility] [address] [place] [address] Calcium [Mass/Vol] 8.9 mg/dL Normal 8.4-10.4 [facility] Comment on above: Performed By: #### B MP3, HEMOG #### [facility] [address] [place] [address] CO2 [Moles/Vol] 32 mmol/L High 22-30 [facility] Comment on above: Performed By: #### B MP3, HEMOG #### [facility] [address] [place] [address] Glucose [Mass/Vol] 91 mg/dL Normal 70-100 [facility] Comment on above: Performed By: #### B MP3, HEMOG #### [facility] [address] [place] [address] Urea nitrogen [Mass/Vol] 32 mg/dL High 7-20 [facility] Comment on above: Performed By: #### B MP3, HEMOG #### [facility] [address] [place] [address] Creatinine [Mass/Vol] 2.84 mg/dL High 0.52-1.25 [facility] Comment on above: Performed By: #### B MP3, HEMOG #### [facility] [address] [place] [address] GFR/1.73 sq M.predicted among blacks MDRD (S/P/Bld) [Vol rate/Area] 26.2 mL/min/{1.73_m2} Abnormal >60 [facility] Comment on above: Performed By: #### B MP3, HEMOG #### [facility] [address] [place] [address] GFR/1.73 sq M.predicted among non-blacks MDRD (S/P/Bld) [Vol rate/Area] 22.6 mL/min/{1.73_m2} Abnormal >60 [facility] Comment on above: Result Comment: KDIG O guidelines provide the following GFR categories: Stage GFR(ml/min/1.73 m2) Terms G1 >=90 Normal or high G2 60-89 Mildly decreased* G3a 45-59 Mildly to moderately decreased G3b 30-44 Moderately to severely decreased G4 15-29 Severely decreased G5 <15 Kidney failure *Relative to young adult level. In the absence of evidence of kidney damage, neither GFR category G1 nor G2 fulfill the criteria for CKD. The CKD-EPI equation is validated in individuals 18 years of age and older. Currently the best equation for estimating glomerular filtration rate (GFR) from serum creatinine in children is the Bedside Sheppard equation. It is less accurate in patients with extremes of muscle mass, restriction of dietary protein, ingestion of creatine, extra-renal metabolism of creatinine, or treatment with medications that affect renal tubular creatinine secretion. Performed By: #### B MP3, HEMOG #### [facility] [address] [place] [address] Potassium [Moles/Vol] 4.1 mmol/L Normal 3.5-5.1 [facility] Comment on above: Performed By: #### B MP3, HEMOG #### [facility] [address] [place] [address] Sodium [Moles/Vol] 137 mmol/L Normal 135-145 [facility] Comment on above: Performed By: #### B MP3, HEMOG #### [facility] [address] [place] [address] Chloride [Moles/Vol] 99 mmol/L Normal 98-107 [facility] Comment on above: Performed By: #### B MP3, HEMOG #### [facility] [address] [place] [address] Anion gap [Moles/Vol] 7 mmol/L 3 - 13 mmol/L [facility] Work Phone: Calcium [Mass/Vol] 8.9 mg/dL 8.4 - 10. 4 mg/dL [facility] Work Phone: Chloride [Moles/Vol] 99 mmol/L 98 - 10 7 mmol/L [facility] Work Phone: CO2 [Moles/Vol] 32 mmol/L High 22 - 30 mmol/L [facility] Work Phone: Creatinine [Mass/Vol] 2.84 mg/dL High 0.52 - 1.25 mg/dL [facility] Work Phone: EGFR IF NonAfrican Bahraini 22.6 mL/min Abnormal >60 [facility] Work Phone: Comment on above: KDIGO guidelines pro vide the following GFR categories: Stage GFR(ml/min/1.73 m2) Terms G1 >=90 Normal or high G2 60-89 Mildly decreased* G3a 45-59 Mildly to moderately decreased G3b 30-44 Moderately to severely decreased G4 15-29 Severely decreased G5 <15 Kidney failure *Relative to young adult level. In the absence of evidence of kidney damage, neither GFR category G1 nor G2 fulfill the criteria for CKD. The CKD-EPI equation is validated in individuals 18 years of age and older. Currently the best equation for estimating glomerular filtration rate (GFR) from serum creatinine in children is the Bedside Sheppard equation. It is less accurate in patients with extremes of muscle mass, restriction of dietary protein, ingestion of creatine, extra-renal metabolism of creatinine, or treatment with medications that affect renal tubular creatinine secretion. GFR/1.73 sq M predicted among blacks MDRD (S/P/Bld) [Vol rate/Area] 26.2 mL/min/{1.73_m2} Abnormal >60 [facility] Work Phone: 1) Glucose [Mass/Vol] 91 mg/dL 70 - 100 mg/dL [facility] Work Phone: Interpretation and review of laboratory results Abnormal [facility] Work Phone: Potassium [Moles/Vol] 4.1 mmol/L 3.5 - 5.1 mmol/L [facility] Work Phone: Sodium [Moles/Vol] 137 mmol/L 135 - 145 mmol/L [facility] Work Phone: Urea nitrogen [Mass/Vol] 32 mg/dL High 7 - 20 mg/dL [facility] Work Phone: Test Performed by [facility], [address] [place] [id number] [facility] Work Phone: CBCon 11-03-2020 Erythrocyte distribution width (RBC) [Ratio] 19.8 % High 11.5 - 14.5 % [facility] Work Phone: Hematocrit (Bld) [Volume fraction] 32.8 % Low 40.0 - 52.0 % [facility] Work Phone: Hemoglobin (Bld) [Mass/Vol] 10.8 g/dL Low 13.0 - 18.0 g/dL [facility] Work Phone: Interpretation and review of laboratory results Abnormal [facility] Work Phone: MCH (RBC) [Entitic mass] 30.0 pg 26.0 - 34.0 pg [facility] Work Phone: MCHC (RBC) [Mass/Vol] 32.9 % 32.0 - 36.0 % [facility] Work Phone: MCV (RBC) [Entitic vol] 91.3 fL 80.0 - 98.0 fL [facility] Work Phone: Platelet mean volume (Bld) [Entitic vol] 8.0 fL 7.4 - 10.4 fL [facility] Work Phone: Platelets (Bld) [#/Vol] 164 10*3/uL 140 - 440 10*3/uL [facility] Work Phone: [phone] RBC (Bld) [#/Vol] 3.59 10*6/uL Low 4.40 - 5.9 0 10*6/uL [facility] Work Phone: WBC (Bld) [#/Vol] 5.7 10*3/uL 3.6 - 10.7 10*3/uL [employer] Work Phone: Test Performed by [facility], [address] [place] [address] [facility] Work Phone: Hemogramon 11-03-2020 Erythrocyte distribution width (RBC) [Ratio] 19.8 % High 11.5-14.5 [facility] Comment on above: Performed By: #### B MP3, HEMOG #### [facility] [address] [place] [address] Hematocrit (Bld) [Volume fraction] 32.8 % Low 40.0-52.0 [facility] Comment on above: Performed By: #### B MP3, HEMOG #### [facility] [address] [place] [address] Hemoglobin (Bld) [Mass/Vol] 10.8 g/dL Low 13.0-18.0 [facility] Comment on above: Performed By: #### B MP3, HEMOG #### [facility] [address] [place] [address] MCH (RBC) [Entitic mass] 30.0 pg Normal 26.0-34.0 [facility] Comment on above: Performed By: #### B MP3, HEMOG #### [facility] [address] [place] [address] MCHC 32.9 % Normal 32.0-36.0 [facility] Comment on above: Performed By: #### B MP3, HEMOG #### [facility] [address] [place] [address] MCV (RBC) [Entitic vol] 91.3 fL Normal 80.0-98.0 [facility] Comment on above: Performed By: #### B MP3, HEMOG #### [facility] [address] [place] [address] Platelet mean volume (Bld) [Entitic vol] 8.0 fL Normal 7.4-10.4 [facility] Comment on above: Performed By: #### B MP3, HEMOG #### [facility] [address] [place] [address] Platelets (Bld) [#/Vol] 164 10*3/uL Normal 140-440 [facility] Comment on above: Performed By: #### B MP3, HEMOG #### [facility] [address] [place] [address] RBC (Bld) [#/Vol] 3.59 10*6/uL Low 4.40-5.90 [facility] Comment on above: Performed By: #### B MP3, HEMOG #### [facility] [address] [place] [address] WBC (Bld) [#/Vol] 5.7 10*3/uL Normal 3.6-10.7 [facility] Comment on above: Performed By: #### B MP3, HEMOG #### [facility] [address] [place] [address] Protein Electrophoresis, Uri ne Randomon 04-08-2019 Protein (U) [Mass/Vol] SEE BELOW Normal [facility] Comment on above: Result Comment: Prot ein Urine Random 298 H 0-20 mg/dL Albumin 52.7 % Alpha 1 Globulin 2.2 >0 % Alpha 2 Globulin 9.6 % Beta Globulin 12.7 % Gamma Globulin 22.8 % Interpretation SEE BELOW No definitive M protein is identified on protein electrophoresis. The absence of M protein on urine protein electrophoresis does not entirely exclude the presence of monoclonal gammopathy in urine. Monoclonal protein analysis (immunofixation), a more definitive test to exclude monoclonal gammopathy, may be requested on this specimen if clinically indicated. Staff Review SEE BELOW Reviewed by Floyd Porter MD ([id number]) Performing Laboratory: [facility] [address] [place] [address] Performed By: #### G LMET #### [address] [address] Basic Panelon 04-07-2019 Creatinine [Mass/Vol] 2.14 mg/dL High 0.67-1.17 [facility] Comment on above: Performed By: #### U RIN2 #### [facility] [address] [place] [address] Anion gap [Moles/Vol] 11 mmol/L Normal 8-16 [facility] Comment on above: Performed By: #### U RIN2 #### [facility] [address] [place], [place] [address] CO2 [Moles/Vol] 26 mmol/L Normal 21-32 [facility] Comment on above: Performed By: #### U RIN2 #### [facility] [address] [place] [address] Glucose [Mass/Vol] 97 mg/dL Normal 70-99 [facility] Comment on above: Performed By: #### U RIN2 #### [facility] [address] [place] [address] Urea nitrogen [Mass/Vol] 65 mg/dL High 7-18 [facility] Comment on above: Performed By: #### U RIN2 #### [facility] [address] [place], [place] [address] Calcium [Mass/Vol] 7.9 mg/dL Low 8.5-10.1 [facility] Comment on above: Performed By: #### U RIN2 #### [facility] [address] [place], [place] [address] Chloride [Moles/Vol] 102 mmol/L Normal 98-107 [facility] Comment on above: Performed By: #### U RIN2 #### [facility] [address] [place], [place] [address] Potassium [Moles/Vol] 4.8 mmol/L Normal 3.5-5.1 [facility] Comment on above: Performed By: #### U RIN2 #### [facility] [address] [place] [address] Sodium [Moles/Vol] 134 mmol/L Low 136-145 [facility] Comment on above: Performed By: #### U RIN2 #### [facility] [address] [place] [id number] CASE MANAGEMon 04-07-2019 CASE MANAGEM HNO ID: [id number] Author: Jocelin (Rn) BISMARK Pagan Service: Care Management Author Type: Registered Nurse Type: Care Mgt Progress Note Filed: 04/07/2019 4:12 PM Note Text: CARE MANAGEMENT DISCHARGE NOTE SERVICE DATE: 04/07/2019 SERVICE TIME: 4:08 PM LOS: 14 days Admission Date: 03/23/2019 DISCHARGE ARRANGEMENT (list agency and phone number) Home Care - Nursing, PT and OT Provider: BI CAREGIVER ASSESSMENT: Caregiver is ready, willing and able to meet the patient's needs as recommended by the inter-professional team? Yes Patient's transition needs and plan for meeting these needs: home with spouse and HHC Does the patient have an acute stroke diagnosis, or has the patient had a stroke during this admission? No HANDOFF COMMUNICATION: na TRANSPORTATION ARRANGEMENTS: Car ADDITIONAL CONTACT RESOURCES: na Met with spouse and pt at bedside, discussed [facility] has accepted pt and SOC will be 04/09/2019. SIGNATURE: Jocelin Pagan RN PATIENT NAME: Mauri Quinones DATE: April 07, 2019 TIME: 4:08 PM PAGER/CONTACT #: [phone] Normal [facility] CONSULT PROGon 04-07-2019 CONSULT PROG HNO ID: [id number] Author: Mohsen Castellanos Service: Infectious Disease Author Type: Physician Type: Consult Progress Note Filed: 04/07/2019 12:35 PM Note Text: 04/07/2019 12:33 PM Infectious Disease Afebrile and feels good. States that he will be discharged today. Minimal cough no sputum production. No chest pain or shortness of breath. No dysuria. No difficulty urinating. BP 153/65 Pulse 75 Temp 36.9 ?C (98.4 ?F) (Oral) Resp 16 Ht 177.8 cm (5' 10) Wt 90.3 kg (199 lb) SpO2 95% BMI 28.55 kg/m? Lungs?few left basilar rales. Abdomen is nontender, no bladder or flank tenderness. No palpable lateral enlargement. Recent Labs 04/07/19 0319 04/06/19 0245 04/05/19 0445 WBC -- -- 12.21* HB -- -- 8.1* HCT -- -- 25.4* PLT -- -- 318 NEUTNUM -- -- 9.12* CREAT 2.14* 2.32* 2.55* Imp: UTI- Enterococcus Possible pneumonia LLL GARRET/CKD- Renal following, creatinine decreasing Leukocytosis improving DM-2 CHF Rec: Continue oral Augmentin through April 10. No ID office follow-up needed We will sign off. Mohsen Castellanos MD [facility] CONSULT PROG HNO ID: [id number] Author: Kiera Gonzalez Service: Endocrinology Author Type: Physician Type: Consult Progress Note Filed: 04/07/2019 8:10 AM Note Text: ENDOCRINOLOGY CONSULT PROGRESS NOTE SERVICE DATE: 04/07/2019 SERVICE TIME: 7:40 AM Subjective INTERVAL HPI: Following for DM type 2. Adm with severe neck and B/L shoulder pain. Has GARRET. Notes and orders reviewed. Pt had erratic po intake, better overall. Diet: DIET RENAL Erratic intake Activity: up with help, using walker; ambulating well Review of Systems: PAIN ASSESSMENT: c/o occ neck and shoulder pain GENERAL: No weight loss, malaise or fevers. RESPIRATORY: Negative for cough, hemoptysis, wheezing, COPD, dyspnea or shortness of breath CARDIOVASCULAR: no CP, has edema GI: no nausea, no diarrhea; appetite ok ENDOCRINE: Negative for cold or heat intolerance, polyuria or polydipsia. NEURO: no numbness/weakness extremities The remainder of the review of systems is negative. Current Facility-Administered Medications Medication Dose Route Frequency - doxazosin 2 mg tab(s) (CARDURA) 2 mg ORAL BID - carvedilol 25 mg tab(s) (COREG) 25 mg ORAL BID w MEALS - latanoprost 0.005 % 1 Drop (XALATAN) 1 Drop BOTH EYES AT BEDTIME - NaCl 0.9% 3-5 mL 3-5 mL INTRAVENOUS q 12 H - heparin 5,000 Units injection 5,000 Units SUBCUTANEOUS q 12 H - ondansetron 4 mg tab(s) (ZOFRAN) 4 mg ORAL q 6 H PRN Or - ondansetron (PF) 4 mg injection (ZOFRAN) 4 mg INTRAVENOUS q 6 H PRN - magnesium hydroxide 400 mg/5 mL 30 mL (MOM) 30 mL ORAL DAILY PRN - bisacodyl 10 mg suppository (DULCOLAX) 10 mg RECTAL DAILY PRN - dextrose 40 % 15 g 15 g ORAL PRN Or - glucagon 1 mg injection (GLUCAGEN) 1 mg INTRAMUSCULAR PRN Or - dextrose 50 % 12.5 g injection 12.5 g INTRAVENOUS PRN - NaCl 0.9% 3-5 mL 3-5 mL INTRAVENOUS q 12 H - aluminum-magnesium hydroxide-simethicone 200-200-20 mg/5 mL 30 mL (MAALOX,MYLANTA,MAG-AL PLUS) 30 mL ORAL DAILY PRN - docusate sodium 100 mg cap(s) (COLACE) 100 mg ORAL BID PRN - ipratropium-albuterol 3 mL nebulizer solution (DUONEB) 3 mL INHALATION q 4 H PRN - insulin lispro pen (rapid acting) (HumaLOG KWIKPEN) SUBCUTANEOUS w MEALS - calcium acetate 667 mg tab(s) (CALPHRON) 667 mg ORAL TID w MEALS - atorvastatin 40 mg tab(s) (LIPITOR) 40 mg ORAL AT BEDTIME - aspirin 81 mg chewable tab(s) 81 mg ORAL DAILY - polyethylene glycol 3350 17 g packet (MIRALAX, GLYCOLAX) 17 g ORAL DAILY - gabapentin 200 mg cap(s) (NEURONTIN) 200 mg ORAL DAILY - insulin lispro 6 Units pen (rapid acting) (HumaLOG KWIKPEN) 6 Units SUBCUTANEOUS w MEALS - hydrALAZINE 50 mg tab(s) (APRESOLINE) 50 mg ORAL q 8 H - acetaminophen 650 mg tab(s) (TYLENOL) 650 mg ORAL q 6 H PRN - insulin detemir U-100 13 Units injection (long acting) (LEVEMIR) 13 Units SUBCUTANEOUS DAILY (8 AM) - amoxicillin-clavulanic acid 500 mg tab(s) (AUGMENTIN) 500 mg ORAL q 12 H Objective PHYSICAL EXAM: GENERAL: alert, awake, no distress; hard of hearing (has hearing aid) SKIN: Skin color, texture, turgor normal. No rashes or lesions. OROPHARYNX: Lips, mucosa, and tongue normal. Teeth and gums normal. Oropharynx normal. LUNGS: Lungs clear to auscultation, Good diaphragmatic excursion CARDIAC: Normal S1 and S2; no rubs, murmurs, or gallops ABDOMEN: Abdomen soft, non-tender, BS normal, No masses or organomegaly EXTREMITIES: 1+ edema B/L LE, no clubbing or skin discoloration., No ulcers NEURO: Grossly normal cognition, motor function, and cranial nerves BP 153/65 Pulse 75 Temp (Src) 98.4 (Oral) Resp 16 Ht 5' 10 (1.78m) Wt 199 lb (90.3kg) SpO2 95% BMI 28.55 kg/(m2). O2 Therapy: Room Air DATA: Diagnostic tests reviewed for today's visit: Most recent labs and imaging results. Last 24 hr BS reviewed. Recent Labs 04/07/19 0605 04/07/19 0319 04/06/19200504/06/19 1600 04/06/19 1040 04/06/19 0609 04/06/19 0245 04/05/19 0445 GLUC -- 97 -- -- -- -- 72 -- 77 GLUCOSEMETER 135* -- 123* 101* 93 108* -- < > -- < > = values in this interval not displayed. Assessment/Plan Type 2 diabetes mellitus, uncontrolled, without complication, with long-term current use of insulin (HCC) POA: Yes Assessment AND Plan: 12-15 ears duration, on insulin for 5 years, Levemir 17 units qhs; off Metformin since 06/2018 due to CKD. A1c 10.4 (was 6.6 in 06/2018 before hip surgery) Checks BS q.o.d. at home, FBS 200-250's at home. BS 287 on adm, no Levemir given on 03/23 hs. Levemir resumed 10 units qam and Humalog 6 units tid started on 03/24 am. BS were high on 03/24; increased Levemir to 15 units qam and Humalog to 8 units tid with SSI on 03/25. BS better but occ <100, reduced Humalog to 6 units tid on 03/27. Was on Levemir 15 units qam and Humalog 6 units tid (held if pt not eating). BS 62 8/8 pm; likely due to increased activity; reduced Levemir to 13 units qam from 8/9 am. Cont Rx, Levemir 13 units qam and Humalog 6 units tid. BS occ lower <100 with activity/erratic po intake. D/C plan for rehab noted. Will need Rx for Humalog if/when pt goes home. Neck/sholuder pain, hx ankylosing spondylitis; pain management seeing pt GARRET (acute kidney injury) ([facility]) POA: Yes Assessment AND Plan: creat sl up again, 2.14(2.32)(2.55)(2.32)(2.3 7)(2.1)(1.92)(1.81)(1.70)( 1.77)(1.86)(2.09)(2.33) (2.47); baseline 1.54; per renal CKD (chronic kidney disease) stage 3, GFR 30-59 ml/min ([facility]) POA: Yes Assessment AND Plan: creat 1.54 in 07/2018 Arteriosclerotic heart disease (ASHD) POA: Yes Assessment AND Plan: hx Hypertension, essential POA: Yes Assessment AND Plan: per caprice UTI (urinary tract infection) POA: Unknown Assessment AND Plan: on A/B Chronic combined systolic and diastolic CHF (congestive heart failure) ([facility]) POA: Yes Assessment AND Plan: hx SIGNATURE: Kiera Gonzalez MD PATIENT NAME: Mauri Quinones DATE: April 07, 2019 TIME: 8:10 AM PAGER: [phone] Normal [facility] Glucose Meteron 04-07-2019 Glucose [Mass/Vol] 99 mg/dL Normal 70-99 [facility] Comment on above: Result Comment: BISMARK Cruz OTIFIED Performed By: #### G LMET #### [place] [address] MDRD GFRon 04-07-2019 GFR/1.73 sq M predicted among non-blacks MDRD (S/P/Bld) [Vol rate/Area] 31.53 mL/min/{1.73_m2} Normal >60mL/min/1. 73m2 [facility] Comment on above: Result Comment: If t he patient is , multiply the result by 1.210. Performed By: #### G FR #### [place] [address] NUTRITIONon 04-07-2019 NUTRITION HNO ID: [id number] Author: Elizabeth Madrid Service: Nutrition Therapy Author Type: Registered Dietitian Type: Nutrition Filed: 04/07/2019 4:02 PM Note Text: NUTRITION THERAPY PROGRESS NOTE SERVICE DATE: 04/07/2019 SERVICE TIME: 11:45am RECOMMENDED DIAGNOSIS: MODERATE PROTEIN-CALORIE MALNUTRITION per Registered Dietitian on 04/01/19. NUTRITION CARE PLAN Problem, Etiology and Signs/Symptoms: Suboptimal protein/energy intake related to decreased ability to consume sufficient nutrition as evidenced by pt interview. Intervention: - Continue renal diet, encouraged adequate intake - Provided renal diet education for d/c today - D/c Ensure Enlive Monitor and Evaluation: Goal: Meet >75% of estimated needs Monitor fluid/electrolyte balance Monitor labs, I/Os, vital signs, weight Discharge Nutrition Recommendations: Diet: Renal Interval History: 04/07- K WNL. 1703 mg per 24 hour protein collection. Abx continues until 04/24 for UTI Nutritional Intake: <75% estimated energy needs over the past 6 day(s) Nitrogen balance calculation suggests pt is anabolic. Meals consumed per Epic at 50-100%. Pt states he does not like the enlive and is drinking his own Atkins supplement brought from home. Encouraged pt not to treat supplements as a meal replacement. 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 Orders Placed This Encounter DIET RENAL Standing Status: Standing Number of Occurrences: 1 Order Specific Question: Renal Answer: 90GM PRO / 2GM K / 2 GM NA / LOW PHOSPHORUS Order Specific Question: Carbohydrate Control Answer: 3-5 CARBS/MEAL Order Specific Question: Fluid Restriction Answer: 2000 ML Supplement 1 Frequency: 1. BREAKFAST; 5. DINNER Supplement 1: ENSURE ENLIVE STRAWBERRY There are no questions and answers to display. There are no questions and answers to display. Lines and Drains: Peripheral 04/01/19 1324 Right Antecubital 22 Gauge (Active) Height: 177.8 cm (5' 10) Admission Weight: 81.6 kg (180 lb) Current Weight: 90.3 kg (199 lb) Body mass index is 28.55 kg/m?. overweight Recent Labs 04/07/19 0319 04/05/19 0445 GLUC 97 < > 77 BUN 65* < > 77* CREAT 2.14* < > 2.55* NA 134* < > 131* K 4.8 < > 4.9 CHLOR 102 < > 99 CO2 26 < > 26 HB -- -- 8.1* HCT -- -- 25.4* WBC -- -- 12.21* < > = values in this interval not displayed. ALLERGIES Allergen Reactions - Lyrica [Pregabalin] Swelling Current Facility-Administered Medications Medication Dose Route Frequency - amoxicillin-clavulanic acid 500 mg tab(s) (AUGMENTIN) 500 mg ORAL q 12 H - insulin detemir U-100 13 Units injection (long acting) (LEVEMIR) 13 Units SUBCUTANEOUS DAILY (8 AM) - acetaminophen 650 mg tab(s) (TYLENOL) 650 mg ORAL q 6 H PRN - insulin lispro 6 Units pen (rapid acting) (HumaLOG KWIKPEN) 6 Units SUBCUTANEOUS w MEALS - hydrALAZINE 50 mg tab(s) (APRESOLINE) 50 mg ORAL q 8 H - atorvastatin 40 mg tab(s) (LIPITOR) 40 mg ORAL AT BEDTIME - aspirin 81 mg chewable tab(s) 81 mg ORAL DAILY - polyethylene glycol 3350 17 g packet (MIRALAX, GLYCOLAX) 17 g ORAL DAILY - gabapentin 200 mg cap(s) (NEURONTIN) 200 mg ORAL DAILY - doxazosin 2 mg tab(s) (CARDURA) 2 mg ORAL BID - carvedilol 25 mg tab(s) (COREG) 25 mg ORAL BID w MEALS - latanoprost 0.005 % 1 Drop (XALATAN) 1 Drop BOTH EYES AT BEDTIME - NaCl 0.9% 3-5 mL 3-5 mL INTRAVENOUS q 12 H - heparin 5,000 Units injection 5,000 Units SUBCUTANEOUS q 12 H - ondansetron 4 mg tab(s) (ZOFRAN) 4 mg ORAL q 6 H PRN Or - ondansetron (PF) 4 mg injection (ZOFRAN) 4 mg INTRAVENOUS q 6 H PRN - magnesium hydroxide 400 mg/5 mL 30 mL (MOM) 30 mL ORAL DAILY PRN - bisacodyl 10 mg suppository (DULCOLAX) 10 mg RECTAL DAILY PRN - dextrose 40 % 15 g 15 g ORAL PRN Or - glucagon 1 mg injection (GLUCAGEN) 1 mg INTRAMUSCULAR PRN Or - dextrose 50 % 12.5 g injection 12.5 g INTRAVENOUS PRN - NaCl 0.9% 3-5 mL 3-5 mL INTRAVENOUS q 12 H - aluminum-magnesium hydroxide-simethicone 200-200-20 mg/5 mL 30 mL (MAALOX,MYLANTA,MAG-AL PLUS) 30 mL ORAL DAILY PRN - docusate sodium 100 mg cap(s) (COLACE) 100 mg ORAL BID PRN - ipratropium-albuterol 3 mL nebulizer solution (DUONEB) 3 mL INHALATION q 4 H PRN - insulin lispro pen (rapid acting) (HumaLOG KWIKPEN) SUBCUTANEOUS w MEALS - calcium acetate 667 mg tab(s) (CALPHRON) 667 mg ORAL TID w MEALS Date 04/06/19 07 - 04/07/19 0659 04/07/19 0700 - 04/08/19 0659 Shift 0092-1860 2241-6683 8834-8462 24 Hour Total 8140-2165 2609-9112 0116-4582 24 Hour Total INTAKE PO 480 480 PO 480 480 Shift Total 480 480 OUTPUT Urine 799 673 6111 Void (ml) 210 896 2966 Urine Not Saved. 2 x 2 x # of BMs Number of BMs 2 x 1 x 3 x Shift Total 171 801 4872 Weight (kg) 91.4 91.4 90.3 90.3 90.3 90.3 90.3 90.3 Vitamin and Mineral Labs in the past year: Recent Labs 03/24/19 1019 04/17/18 1609 B12 1,687* -- TIBC -- 312 FE -- 77 BOBY -- 142.0 MNT Billing Type: Re-assess/15 min 2 units SIGNATURE: Elizabeth Madrid RD,LD PATIENT NAME: Mauri Quinones DATE: April 07, 2019 TIME: 9:48 AM PAGER: [phone] [facility] PLAN OF CAREon 04-07-2019 PLAN OF CARE HNO ID: [id number] Author: Monica Wade (Pharmacist) Service: Pharmacy Author Type: Pharmacist Type: Plan of Care Filed: 04/07/2019 4:29 PM Note Text: DISCHARGE MEDICATION COUNSELING BY PHARMACY Patient Name: Mauri Quinones Account #: Data Unavailable Admission Date: 03/23/2019 Date of Contact: April 07, 2019 Time of Contact: 4:28 PM LEARNERS Persons Present: Patient and Partner Primary Learner: Patient and Partner The patient was counseled on the medication(s) listed below and was given the opportunity to ask questions regarding indication, dosage, side effects and drug interactions READINESS TO LEARN COGNITIVE ABILITY:Alert and oriented MOTIVATION TO LEARN:Eager Interested FAMILY SUPPORT:High - Very involved in pt care INSTRUCTION PROVIDED TO:Patient and Spouse PATIENT LEARNS BEST BY:Individual Instruction Written Instruction - Hand-outs Verbal Instruction FACTORS AFFECTING LEARNING:None PHYSICAL LIMITATIONS AFFECTING LEARNING:None LEARNING RESPONSE PATIENT / FAMILY RESPONSE:Verbalizes understanding of: The signs and symptoms of a worsening condition that warrant a call to the physician. The correct actions to take to manage symptoms associated with his/her disease/illness. Accurate knowledge of prescribed medication prior to discharge. The correct action to take if medication dose is missed. The side effects associated with the medication that warrant a call to the physician. Post discharge follow up instruction MONICA WADE PHARMACIST April 07, 2019 4:28 PM Medication List START taking these medications amoxicillin-clavulanic acid 500-125 mg per tablet Commonly known as: AUGMENTIN Take 1 tablet by mouth every 12 hours for 7 doses. gabapentin 100 mg capsule Commonly known as: NEURONTIN Take 2 capsules by mouth once daily for 30 days. Start taking on: 04/08/2019 Replaces: gabapentin 600 mg tablet hydrALAZINE 50 mg tablet Commonly known as: APRESOLINE Take 1 tablet by mouth every 8 hours. insulin lispro 100 unit/mL Inpn Commonly known as: HumaLOG KWIKPEN Inject 6 Units subcutaneously w MEALS. CHANGE how you take these medications insulin detemir U-100 100 unit/mL (3 mL) Inpn injection Commonly known as: LEVEMIR FLEXTOUCH U-100 INSULN Inject 13 Units subcutaneously daily at bedtime. What changed: how much to take CONTINUE taking these medications aspirin, enteric coated 81 mg EC tablet Commonly known as: ASPIR-81 Take 1 tablet by mouth once daily. atorvastatin 40 mg tablet Commonly known as: LIPITOR carvedilol 25 mg tablet Commonly known as: COREG DAILY MULTI ORAL doxazosin 4 mg tablet Commonly known as: CARDURA Take 0.5 tablets by mouth twice daily. furosemide 40 mg tablet Commonly known as: LASIX Take 1 tablet by mouth once daily. XALATAN 0.005 % ophthalmic solution Generic drug: latanoprost STOP taking these medications gabapentin 600 mg tablet Commonly known as: NEURONTIN Replaced by: gabapentin 100 mg capsule KEFLEX 500 mg capsule Generic drug: cephALEXin NORCO 5-325 mg per tablet Generic drug: HYDROcodone-acetaminophen sodium polystyrene sulfonate (with sorbitol) 15-20 gram/60 mL Susp suspension Commonly known as: SPS Where to Get Your Medications These medications were sent to e- [facility]/pharmacy #[id number] - [place] [address] - [address] - [phone] [id number] [address] [facility] [facility] [address] ? amoxicillin-clavulanic acid 500-125 mg per tablet ? gabapentin 100 mg capsule ? hydrALAZINE 50 mg tablet ? insulin lispro 100 unit/mL Inpn [facility] PLAN OF CARE HNO ID: [id number] Author: Monica Wade (Pharmacist) Service: Pharmacy Author Type: Pharmacist Type: Plan of Care Filed: 04/07/2019 3:40 PM Note Text: DISCHARGE MEDICATION REVIEW BY PHARMACY Patient Name: Mauri Quinones Account #: Data Unavailable Admission Date: 03/23/2019 Date of Contact: April 07, 2019 Time of Contact: 3:36 PM Medication list was reviewed by a Pharmacist for drug interactions or drug related problems:Yes Below is a summary of pharmacist recommendations discussed with LIP: No Recommendations at this time from Discharge Medication List. Patient being discharged home with and home health care. All medications reviewed and reconciled appropriately. Will provide patient and family medication education if available to discuss medication changes prior to discharge. Prescriptions sent electronically to patient's home pharmacy, [facility]. Will document education note separately. MONICA WADE PHARMACIST April 07, 2019 3:36 PM EXT: [id number] 04/07/2019 3:36 PM Medication List START taking these medications amoxicillin-clavulanic acid 500-125 mg per tablet Commonly known as: AUGMENTIN Take 1 tablet by mouth every 12 hours for 7 doses. gabapentin 100 mg capsule Commonly known as: NEURONTIN Take 2 capsules by mouth once daily for 30 days. Start taking on: 04/08/2019 Replaces: gabapentin 600 mg tablet hydrALAZINE 50 mg tablet Commonly known as: APRESOLINE Take 1 tablet by mouth every 8 hours. insulin lispro 100 unit/mL Inpn Commonly known as: HumaLOG KWIKPEN Inject 6 Units subcutaneously w MEALS. CHANGE how you take these medications insulin detemir U-100 100 unit/mL (3 mL) Inpn injection Commonly known as: LEVEMIR FLEXTOUCH U-100 INSULN Inject 13 Units subcutaneously daily at bedtime. What changed: how much to take CONTINUE taking these medications aspirin, enteric coated 81 mg EC tablet Commonly known as: ASPIR-81 Take 1 tablet by mouth once daily. atorvastatin 40 mg tablet Commonly known as: LIPITOR carvedilol 25 mg tablet Commonly known as: COREG DAILY MULTI ORAL doxazosin 4 mg tablet Commonly known as: CARDURA Take 0.5 tablets by mouth twice daily. furosemide 40 mg tablet Commonly known as: LASIX Take 1 tablet by mouth once daily. XALATAN 0.005 % ophthalmic solution Generic drug: latanoprost STOP taking these medications gabapentin 600 mg tablet Commonly known as: NEURONTIN Replaced by: gabapentin 100 mg capsule KEFLEX 500 mg capsule Generic drug: cephALEXin NORCO 5-325 mg per tablet Generic drug: HYDROcodone-acetaminophen sodium polystyrene sulfonate (with sorbitol) 15-20 gram/60 mL Susp suspension Commonly known as: SPS Where to Get Your Medications These medications were sent to e- [facility]/pharmacy #[id number] - [place] [address] - [address] [phone] [address] [address] [facility] [address] ? amoxicillin-clavulanic acid 500-125 mg per tablet ? gabapentin 100 mg capsule ? hydrALAZINE 50 mg tablet ? insulin lispro 100 unit/mL Inpn Normal [facility] PROGRESSon 04-07-2019 PROGRESS HNO ID: [id number] Author: Bravo Lamb) Ervin Service: Nephrology Author Type: Physician Type: Progress Notes Filed: 04/07/2019 3:23 PM Note Text: CONSULT PROGRESS NOTE SERVICE TIME: 3:22 PM CONSULTING SERVICE: Nephrology Following for:ckd Subjective:no sob/cp no c/o today Current Facility-Administered Medications Medication Dose Route Frequency - doxazosin 2 mg tab(s) (CARDURA) 2 mg ORAL BID - carvedilol 25 mg tab(s) (COREG) 25 mg ORAL BID w MEALS - latanoprost 0.005 % 1 Drop (XALATAN) 1 Drop BOTH EYES AT BEDTIME - NaCl 0.9% 3-5 mL 3-5 mL INTRAVENOUS q 12 H - heparin 5,000 Units injection 5,000 Units SUBCUTANEOUS q 12 H - ondansetron 4 mg tab(s) (ZOFRAN) 4 mg ORAL q 6 H PRN Or - ondansetron (PF) 4 mg injection (ZOFRAN) 4 mg INTRAVENOUS q 6 H PRN - magnesium hydroxide 400 mg/5 mL 30 mL (MOM) 30 mL ORAL DAILY PRN - bisacodyl 10 mg suppository (DULCOLAX) 10 mg RECTAL DAILY PRN - dextrose 40 % 15 g 15 g ORAL PRN Or - glucagon 1 mg injection (GLUCAGEN) 1 mg INTRAMUSCULAR PRN Or - dextrose 50 % 12.5 g injection 12.5 g INTRAVENOUS PRN - NaCl 0.9% 3-5 mL 3-5 mL INTRAVENOUS q 12 H - aluminum-magnesium hydroxide-simethicone 200-200-20 mg/5 mL 30 mL (MAALOX,MYLANTA,MAG-AL PLUS) 30 mL ORAL DAILY PRN - docusate sodium 100 mg cap(s) (COLACE) 100 mg ORAL BID PRN - ipratropium-albuterol 3 mL nebulizer solution (DUONEB) 3 mL INHALATION q 4 H PRN - insulin lispro pen (rapid acting) (HumaLOG KWIKPEN) SUBCUTANEOUS w MEALS - calcium acetate 667 mg tab(s) (CALPHRON) 667 mg ORAL TID w MEALS - atorvastatin 40 mg tab(s) (LIPITOR) 40 mg ORAL AT BEDTIME - aspirin 81 mg chewable tab(s) 81 mg ORAL DAILY - polyethylene glycol 3350 17 g packet (MIRALAX, GLYCOLAX) 17 g ORAL DAILY - gabapentin 200 mg cap(s) (NEURONTIN) 200 mg ORAL DAILY - insulin lispro 6 Units pen (rapid acting) (HumaLOG KWIKPEN) 6 Units SUBCUTANEOUS w MEALS - hydrALAZINE 50 mg tab(s) (APRESOLINE) 50 mg ORAL q 8 H - acetaminophen 650 mg tab(s) (TYLENOL) 650 mg ORAL q 6 H PRN - insulin detemir U-100 13 Units injection (long acting) (LEVEMIR) 13 Units SUBCUTANEOUS DAILY (8 AM) - amoxicillin-clavulanic acid 500 mg tab(s) (AUGMENTIN) 500 mg ORAL q 12 H PHYSICAL EXAM: Physical Exam Performed: BP 144/65 Pulse 73 Temp (Src) 98.1 (Oral) Resp 16 Ht 5' 10 (1.78m) Wt 199 lb (90.3kg) SpO2 94% BMI 28.55 kg/(m2). O2 Therapy: Room Air BLOOD PRESSURE RANGE: Systolic (24hrs), Av , Min:143 , Max:181 ; Diastolic (24hrs), Av, Min:65, Max:88 GENERAL: well developed, no distress ENMT lips pink oral mucosa moist EYES sclerae white PERRL SKIN: warm dry No rashes or lesions LUNGS: Lungs clear to auscultation no wheezing no crackles, Good diaphragmatic excursion respirations are even and unlabored CARDIAC: S1 and S2; no rubs, murmurs, or gallops ABDOMEN: Abdomen soft, non-tender, BS present in all four quadrants EXTREMITIES: B/l LE edema, clubbing NEURO: Grossly normal cognition, motor function. Sensation grossly intact, Cranial nerves II-XII intact HEME no cervical or axillary lymphadenopathy, no petechiae DATA: Diagnostic tests reviewed for today's visit: Most recent labs and imaging results reviewed if applicable Labs: Recent Labs 04/05/19 0445 WBC 12.21* HB 8.1* HCT 25.4* MCV 92.7 PLT 318 Recent Labs 04/07/19 0319 04/06/19 0245 04/05/19 0445 NA 134* 134* 131* K 4.8 4.9 4.9 CO2 26 26 26 BUN 65* 72* 77* CREAT 2.14* 2.32* 2.55* CA 7.9* 7.8* 7.7* pH, Arterial Date Value Ref Range Status 04/13/2017 7.324 (L) 7.350 - 7.450 Final Specific [place], Ur Date Value Ref Range Status 03/23/2019 1.019 1.005 - 1.030 Final Glucose, Urine Date Value Ref Range Status 03/23/2019 500 (A) Negative mg/dL Final Bilirubin, Urine Date Value Ref Range Status 03/23/2019 NEGATIVE Negative Final Ketones, Urine Date Value Ref Range Status 03/23/2019 NEGATIVE Negative mg/dL Final Hemoglobin/Blood,Ur Date Value Ref Range Status 07/25/2018 Negative Negative Final Protein, Urine Date Value Ref Range Status 03/24/2019 473.4 (H) 0.0 - 11.9 mg/dL Final Urobilinogen, Urine Date Value Ref Range Status 03/23/2019 1.0 0.2 - 1.0 EU/dL Final Nitrites Date Value Ref Range Status 07/25/2018 Negative Negative Final Nitrites Urine Date Value Ref Range Status 03/23/2019 NEGATIVE Negative Final WBC, Urine Date Value Ref Range Status 03/23/2019 >900.0 (H) 0.0 - 5.0 /hpf Final Input / Output: 24 HR: Intake/Output Summary (Last 24 hours) at 04/07/2019 1522 Last data filed at 04/07/2019 1144 Gross per 24 hour Intake ? 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 Mcfadden to reorder spep light chains and f/u on upep Continue phoslo monitor phos bp ok monitor Avoid nephrotoxins D/w patient and family at bedside and dr. Marcial. Chart reviewed. SIGNATURE: Bravo Mueller MD PATIENT NAME: Mauri Quinones PAGER: [phone] [facility] PROGRESS HNO ID: [id number] Author: Bravo Lamb) Ervin Service: Nephrology Author Type: Physician Type: Progress Notes Filed: 04/07/2019 3:22 PM Note Text: CONSULT PROGRESS NOTE SERVICE TIME: 3:17 PM CONSULTING SERVICE: Nephrology Following for:ckd Subjective:no sob/cp no c/o today Current Facility-Administered Medications Medication Dose Route Frequency - doxazosin 2 mg tab(s) (CARDURA) 2 mg ORAL BID - carvedilol 25 mg tab(s) (COREG) 25 mg ORAL BID w MEALS - latanoprost 0.005 % 1 Drop (XALATAN) 1 Drop BOTH EYES AT BEDTIME - NaCl 0.9% 3-5 mL 3-5 mL INTRAVENOUS q 12 H - heparin 5,000 Units injection 5,000 Units SUBCUTANEOUS q 12 H - ondansetron 4 mg tab(s) (ZOFRAN) 4 mg ORAL q 6 H PRN Or - ondansetron (PF) 4 mg injection (ZOFRAN) 4 mg INTRAVENOUS q 6 H PRN - magnesium hydroxide 400 mg/5 mL 30 mL (MOM) 30 mL ORAL DAILY PRN - bisacodyl 10 mg suppository (DULCOLAX) 10 mg RECTAL DAILY PRN - dextrose 40 % 15 g 15 g ORAL PRN Or - glucagon 1 mg injection (GLUCAGEN) 1 mg INTRAMUSCULAR PRN Or - dextrose 50 % 12.5 g injection 12.5 g INTRAVENOUS PRN - NaCl 0.9% 3-5 mL 3-5 mL INTRAVENOUS q 12 H - aluminum-magnesium hydroxide-simethicone 200-200-20 mg/5 mL 30 mL (MAALOX,MYLANTA,MAG-AL PLUS) 30 mL ORAL DAILY PRN - docusate sodium 100 mg cap(s) (COLACE) 100 mg ORAL BID PRN - ipratropium-albuterol 3 mL nebulizer solution (DUONEB) 3 mL INHALATION q 4 H PRN - insulin lispro pen (rapid acting) (HumaLOG KWIKPEN) SUBCUTANEOUS w MEALS - calcium acetate 667 mg tab(s) (CALPHRON) 667 mg ORAL TID w MEALS - atorvastatin 40 mg tab(s) (LIPITOR) 40 mg ORAL AT BEDTIME - aspirin 81 mg chewable tab(s) 81 mg ORAL DAILY - polyethylene glycol 3350 17 g packet (MIRALAX, GLYCOLAX) 17 g ORAL DAILY - gabapentin 200 mg cap(s) (NEURONTIN) 200 mg ORAL DAILY - insulin lispro 6 Units pen (rapid acting) (HumaLOG KWIKPEN) 6 Units SUBCUTANEOUS w MEALS - hydrALAZINE 50 mg tab(s) (APRESOLINE) 50 mg ORAL q 8 H - acetaminophen 650 mg tab(s) (TYLENOL) 650 mg ORAL q 6 H PRN - insulin detemir U-100 13 Units injection (long acting) (LEVEMIR) 13 Units SUBCUTANEOUS DAILY (8 AM) - amoxicillin-clavulanic acid 500 mg tab(s) (AUGMENTIN) 500 mg ORAL q 12 H PHYSICAL EXAM: Physical Exam Performed: BP 144/65 Pulse 73 Temp (Src) 98.1 (Oral) Resp 16 Ht 5' 10 (1.78m) Wt 199 lb (90.3kg) SpO2 94% BMI 28.55 kg/(m2). O2 Therapy: Room Air BLOOD PRESSURE RANGE: Systolic (24hrs), Av , Min:143 , Max:181 ; Diastolic (24hrs), Av, Min:65, Max:88 GENERAL: well developed, no distress ENMT lips pink oral mucosa moist EYES sclerae white PERRL SKIN: warm dry No rashes or lesions LUNGS: Lungs clear to auscultation no wheezing no crackles, Good diaphragmatic excursion respirations are even and unlabored CARDIAC: S1 and S2; no rubs, murmurs, or gallops ABDOMEN: Abdomen soft, non-tender, BS present in all four quadrants EXTREMITIES: B/l LE edema, clubbing NEURO: Grossly normal cognition, motor function. Sensation grossly intact, Cranial nerves II-XII intact HEME no cervical or axillary lymphadenopathy, no petechiae DATA: Diagnostic tests reviewed for today's visit: Most recent labs and imaging results reviewed if applicable Labs: Recent Labs 04/05/19 0445 WBC 12.21* HB 8.1* HCT 25.4* MCV 92.7 PLT 318 Recent Labs 04/07/19 0319 04/06/19 0245 04/05/19 0445 NA 134* 134* 131* K 4.8 4.9 4.9 CO2 26 26 26 BUN 65* 72* 77* CREAT 2.14* 2.32* 2.55* CA 7.9* 7.8* 7.7* pH, Arterial Date Value Ref Range Status 04/13/2017 7.324 (L) 7.350 - 7.450 Final Specific [place], Ur Date Value Ref Range Status 03/23/2019 1.019 1.005 - 1.030 Final Glucose, Urine Date Value Ref Range Status 03/23/2019 500 (A) Negative mg/dL Final Bilirubin, Urine Date Value Ref Range Status 03/23/2019 NEGATIVE Negative Final Ketones, Urine Date Value Ref Range Status 03/23/2019 NEGATIVE Negative mg/dL Final Hemoglobin/Blood,Ur Date Value Ref Range Status 07/25/2018 Negative Negative Final Protein, Urine Date Value Ref Range Status 03/24/2019 473.4 (H) 0.0 - 11.9 mg/dL Final Urobilinogen, Urine Date Value Ref Range Status 03/23/2019 1.0 0.2 - 1.0 EU/dL Final Nitrites Date Value Ref Range Status 07/25/2018 Negative Negative Final Nitrites Urine Date Value Ref Range Status 03/23/2019 NEGATIVE Negative Final WBC, Urine Date Value Ref Range Status 03/23/2019 >900.0 (H) 0.0 - 5.0 /hpf Final Input / Output: 24 HR: Intake/Output Summary (Last 24 hours) at 04/07/2019 1517 Last data filed at 04/07/2019 1144 Gross per 24 hour Intake ? 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 Mcfadden to reorder spep light chains and f/u on upep Continue phoslo monitor phos bp ok monitor Avoid nephrotoxins D/w patient and family at bedside Chart reviewed. SIGNATURE: Bravo Mueller MD PATIENT NAME: Mauri Quinones PAGER: [phone] [facility] THERAPY NTon 04-07-2019 THERAPY NT HNO ID: [id number] Author: Isabela (Pt) Flori Service: Physical Therapy Author Type: Physical Therapist Type: Therapy (PT/OT/Speech/Resp) Filed: 04/07/2019 9:53 AM Note Text: Physical Therapy Treatment SERVICE DATE: 04/07/2019 SERVICE TIME: 50 to 14 ROOM: [id number] Recommended Discharge Disposition: Acute Rehab Recommended Discharge Disposition Comments: continue to rec acute rehab to address higher level balance issues and return to independence before going home Justification For Post Acute Needs: Medically complex;Anticipate patient will tolerate 3 hours of daily therapy at the time of admission to post-acute setting PT Recommendations to Nursing: Ambulate with device;To bathroom;Transfer to/from chair;With assist of 1 person Device: Wheeled Walker PT 6 Clicks Score: 18 Precautions/Activity Restrictions: Fall Risk Isolation Type: None ASSESSMENT : Patient seen for follow-up visit - updated goals as needed and tolerated the full session of PT without pain or fatigue--continue to rec acute rehab d/t needing min A to transfer and assist and verbal cues for safety with ambulation--with acute rehab pt can return to independence before going home Patient Disposition at Start of Session: Supine in Bed;Call Emmanuel in Reach Patient Disposition at End of Session: Supine in Bed;Call Emmanuel in Reach Tolerated Full Session Without limitations Physical Therapy Problem List: Pain;Functional Mobility Impairment;Decreased Range Of Motion Patient /Caregiver Goals: Walk;Go Home Goals for Plan of Care: Able to perform HEP with: (NA) Transfer supine to/from sit with: Stand By Assistance(goal met 04/07--updated TL/MC) Transfer sit to/from stand with: Stand By Assistance(goal met 04/07--updated TL/MC) Ambulate with: Stand By Assistance(goal met 04/07--updated TL/MC) Distance: 100x2(goal met 04/07--updated TL/MC) Device: Wheeled Walker Transfer: (goal met 04/07) Goal: 2x10 reps bilat LE AROM exercises Progress Toward Goals: Progressing as expected Rehab Potential: Good PLAN: Treatment Frequency (times per week): 5(1-5) Current admission Treatment Interventions: Education;Joint Mobility;Strengthening;Fun ctional Mobility Training;Balance Training Plan of Care developed with: Patient;Family TREATMENT INTERVENTIONS: Interventions Provided: Therapeutic Exercise (62424);Therapeutic Activity (00974) Therapeutic Exercise (50256) Treatment Minutes: 8 1 unit Skilled Intervention(s): pt completed seated hip flexion bilat x 10, long arc quads bilat x 10, and ankle pumps bilat x 10 Therapeutic Activity (58147) Treatment Minutes: 16 1 unit Skilled Intervention(s): Patient completed bed mobility with contact guard assist for supine to sit and mod assist for sit to supine Patient completed transfers with min assist for sit to stand and contact guard assist for stand to sit - pt instructed to keep one hand on the walker and the other on the bed to push up through to stand Patient ambulated 50 ft x 2 with wheeled walker and required contact guard assist - instructed pt to stay close to walker and look up to avoid obstacles Total Timed Code Treatment Minutes: 24 Total Treatment Time (minutes): 24 SUBJECTIVE: Current Hospital Course: Chart reviewed and no significant medical updates relevant to therapy were noted Reason for Physical Therapy Consult : eval Relevant Past Medical History: CAD, ankylosing spondylitis, gout Patient Report: pt reports that he wants to go home and thinks he is going to be discharged home today, pt agreeable to mobility and says he is capable of doing anything since he is able to go home - but pt stated he might need help during sit to stand, pt denies any pain or fatigue Home Environment Patient Lives With: Family( and dtr) Assistance Available: 24 Hour Entry To Home: Stairs;With Rail Number Of Stairs Into Home: 1 Number Of Stairs To Bed/Bath: 0 Laundry: basement- pt can do it Equipment Owned: Wheeled Walker;Cane Prior Functional Level: Within Functional Limits Prior Functional Level Comments: independent, drives, OBJECTIVE: CURRENT FUNCTIONAL STATUS: Current Functional Mobility Assist Level Additional Information Rolling Supine to Sit Contact Guard Assistance Sit to Supine Moderate Assistance Scooting Sit to Stand Minimal Assistance Stand to Sit Contact Guard Assistance Bed to Chair Toilet/Commode Gait Contact Guard Assistance Gait Device: Wheeled Walker Gait Distance (feet): 50 ft x 2 Stairs Curb Step Car Transfer Gait Deviations Right Lower Extremity: Weight bearing decreased;Step length decreased(antalgic gait) General Gait Deviations: Antalgic gait pattern;Gaby decreased;Step length decreased;Lateral sway increased JH-HLM: 7: Walk 25 feet or more Please see discipline specific clinical documentation flowsheet for complete details for this therapy evaluation/treatment. SIGNATURE: ANKIT Lucas PATIENT NAME: Mauri Quinones DATE: April 07, 2019 TIME: 9:25 AM Patient care delivered with direct supervision of PT Clinical Instructor in accordance with treatment plan. I reviewed and agree with the documentation corresponding to this therapy visit. SIGNATURE: Isabela Ruby, PT DATE: April 07, 2019 TIME: 9:53 AM Normal [facility] Basic Panelon 04-06-2019 Creatinine [Mass/Vol] 2.32 mg/dL High 0.67-1.17 [facility] Comment on above: Performed By: #### U RIN2 #### [facility] [address] [place], [place] [address] Anion gap [Moles/Vol] 12 mmol/L Normal 8-16 [facility] Comment on above: Performed By: #### U RIN2 #### [facility] [address] [place], [place] [address] CO2 [Moles/Vol] 26 mmol/L Normal 21-32 [facility] Comment on above: Performed By: #### U RIN2 #### [address] [address] Glucose [Mass/Vol] 72 mg/dL Normal 70-99 [facility] Comment on above: Performed By: #### U RIN2 #### [address] [address] Urea nitrogen [Mass/Vol] 72 mg/dL High 7-18 [facility] Comment on above: Performed By: #### U RIN2 #### [address] [address] Calcium [Mass/Vol] 7.8 mg/dL Low 8.5-10.1 [facility] Comment on above: Performed By: #### U RIN2 #### [facility] [address] [place], [place] [address] Chloride [Moles/Vol] 101 mmol/L Normal 98-107 [facility] Comment on above: Performed By: #### U RIN2 #### [facility] [address] [place], [place] [address] Potassium [Moles/Vol] 4.9 mmol/L Normal 3.5-5.1 [facility] Comment on above: Performed By: #### U RIN2 #### [facility] [address] [place], [place] [address] Sodium [Moles/Vol] 134 mmol/L Low 136-145 [facility] Comment on above: Performed By: #### U RIN2 #### [facility] [address] [place], [place] [address] CONSULT PROGon 04-06-2019 CONSULT PROG HNO ID: [id number] Author: Kiera Gonzalez Service: Endocrinology Author Type: Physician Type: Consult Progress Note Filed: 04/06/2019 8:55 AM Note Text: ENDOCRINOLOGY CONSULT PROGRESS NOTE SERVICE DATE: 04/06/2019 SERVICE TIME: 8:35 AM Subjective INTERVAL HPI: Following for DM type 2. Adm with severe neck and B/L shoulder pain. Has GARRET. Notes and orders reviewed. Pt had erratic po intake, better overall. Diet: DIET RENAL Erratic intake Activity: up with help, using walker; ambulated with PT Review of Systems: PAIN ASSESSMENT: still has some neck and shoulder pain GENERAL: No weight loss, malaise or fevers. RESPIRATORY: Negative for cough, hemoptysis, wheezing, COPD, dyspnea or shortness of breath CARDIOVASCULAR: no CP, has edema GI: no nausea, no diarrhea ENDOCRINE: Negative for cold or heat intolerance, polyuria or polydipsia. NEURO: no numbness/weakness extremities The remainder of the review of systems is negative. Current Facility-Administered Medications Medication Dose Route Frequency - doxazosin 2 mg tab(s) (CARDURA) 2 mg ORAL BID - carvedilol 25 mg tab(s) (COREG) 25 mg ORAL BID w MEALS - latanoprost 0.005 % 1 Drop (XALATAN) 1 Drop BOTH EYES AT BEDTIME - NaCl 0.9% 3-5 mL 3-5 mL INTRAVENOUS q 12 H - heparin 5,000 Units injection 5,000 Units SUBCUTANEOUS q 12 H - ondansetron 4 mg tab(s) (ZOFRAN) 4 mg ORAL q 6 H PRN Or - ondansetron (PF) 4 mg injection (ZOFRAN) 4 mg INTRAVENOUS q 6 H PRN - magnesium hydroxide 400 mg/5 mL 30 mL (MOM) 30 mL ORAL DAILY PRN - bisacodyl 10 mg suppository (DULCOLAX) 10 mg RECTAL DAILY PRN - dextrose 40 % 15 g 15 g ORAL PRN Or - glucagon 1 mg injection (GLUCAGEN) 1 mg INTRAMUSCULAR PRN Or - dextrose 50 % 12.5 g injection 12.5 g INTRAVENOUS PRN - NaCl 0.9% 3-5 mL 3-5 mL INTRAVENOUS q 12 H - aluminum-magnesium hydroxide-simethicone 200-200-20 mg/5 mL 30 mL (MAALOX,MYLANTA,MAG-AL PLUS) 30 mL ORAL DAILY PRN - docusate sodium 100 mg cap(s) (COLACE) 100 mg ORAL BID PRN - ipratropium-albuterol 3 mL nebulizer solution (DUONEB) 3 mL INHALATION q 4 H PRN - insulin lispro pen (rapid acting) (HumaLOG KWIKPEN) SUBCUTANEOUS w MEALS - calcium acetate 667 mg tab(s) (CALPHRON) 667 mg ORAL TID w MEALS - atorvastatin 40 mg tab(s) (LIPITOR) 40 mg ORAL AT BEDTIME - aspirin 81 mg chewable tab(s) 81 mg ORAL DAILY - polyethylene glycol 3350 17 g packet (MIRALAX, GLYCOLAX) 17 g ORAL DAILY - gabapentin 200 mg cap(s) (NEURONTIN) 200 mg ORAL DAILY - insulin lispro 6 Units pen (rapid acting) (HumaLOG KWIKPEN) 6 Units SUBCUTANEOUS w MEALS - hydrALAZINE 50 mg tab(s) (APRESOLINE) 50 mg ORAL q 8 H - acetaminophen 650 mg tab(s) (TYLENOL) 650 mg ORAL q 6 H PRN - insulin detemir U-100 13 Units injection (long acting) (LEVEMIR) 13 Units SUBCUTANEOUS DAILY (8 AM) - amoxicillin-clavulanic acid 500 mg tab(s) (AUGMENTIN) 500 mg ORAL q 12 H Objective PHYSICAL EXAM: GENERAL: alert, awake, no distress; hard of hearing (has hearing aid) SKIN: Skin color, texture, turgor normal. No rashes or lesions. OROPHARYNX: Lips, mucosa, and tongue normal. Teeth and gums normal. Oropharynx normal. LUNGS: Lungs clear to auscultation, Good diaphragmatic excursion CARDIAC: Normal S1 and S2; no rubs, murmurs, or gallops ABDOMEN: Abdomen soft, non-tender, BS normal, No masses or organomegaly EXTREMITIES: 1+ edema B/L LE, no clubbing or skin discoloration., No ulcers NEURO: Grossly normal cognition, motor function, and cranial nerves BP 138/59 Pulse 74 Temp (Src) 98.6 (Oral) Resp 16 Ht 5' 10 (1.78m) Wt 201 lb 6.4 oz (91.4kg) SpO2 91% BMI 28.90 kg/(m2). O2 Therapy: Room Air DATA: Diagnostic tests reviewed for today's visit: Most recent labs and imaging results. Last 24 hr BS reviewed. Recent Labs 04/06/19 0609 04/06/19 0245 04/05/19201804/05/19 1609 04/05/19 1025 04/05/19 0646 04/05/19 0445 04/04/19 0450 GLUC -- 72 -- -- -- -- 77 -- 111* GLUCOSEMETER 108* -- 111* 92 71 91 -- < > -- < > = values in this interval not displayed. Assessment/Plan Type 2 diabetes mellitus, uncontrolled, without complication, with long-term current use of insulin (HCC) POA: Yes Assessment AND Plan: 12-15 ears duration, on insulin for 5 years, Levemir 17 units qhs; off Metformin since 06/2018 due to CKD. A1c 10.4 (was 6.6 in 06/2018 before hip surgery) Checks BS q.o.d. at home, FBS 200-250's at home. BS 287 on adm, no Levemir given on 03/23 hs. Levemir resumed 10 units qam and Humalog 6 units tid started on 03/24 am. BS were high on 03/24; increased Levemir to 15 units qam and Humalog to 8 units tid with SSI on 03/25. BS better but occ <100, reduced Humalog to 6 units tid on 03/27. Was on Levemir 15 units qam and Humalog 6 units tid (held if pt not eating). BS 62 8/8 pm; likely due to increased activity; reduced Levemir to 13 units qam from 8/9 am. Cont Rx, BS occ lower with activity/erratic po intake. Eating poorly this am, drinks supplement occ. D/C plan for rehab noted. Will need Rx for Humalog if/when pt goes home. Neck/sholuder pain, hx ankylosing spondylitis; pain management seeing pt GARRET (acute kidney injury) (HCC) POA: Yes Assessment AND Plan: creat sl up again, 2.32(2.55)(2.32)(2.37)(2.1 )(1.92)(1.81)(1.70)(1.77)( 1.86)(2.09)(2.33)(2.47) ; baseline 1.54; per renal CKD (chronic kidney disease) stage 3, GFR 30-59 ml/min ([facility]) POA: Yes Assessment AND Plan: creat 1.54 in 07/2018 Arteriosclerotic heart disease (ASHD) POA: Yes Assessment AND Plan: hx Hypertension, essential POA: Yes Assessment AND Plan: per caprice UTI (urinary tract infection) POA: Unknown Assessment AND Plan: on A/B Chronic combined systolic and diastolic CHF (congestive heart failure) ([facility]) POA: Yes Assessment AND Plan: hx SIGNATURE: Kiera Gonzalez MD PATIENT NAME: Mauri Quinones DATE: April 06, 2019 TIME: 8:55 AM PAGER: [phone] [facility] PROGRESSon 04-06-2019 PROGRESS HNO ID: [id number] Author: Bravo Lamb) Ervin Service: Nephrology Author Type: Physician Type: Progress Notes Filed: 04/06/2019 12:00 PM Note Text: CONSULT PROGRESS NOTE SERVICE TIME: 11:56 AM CONSULTING SERVICE: Nephrology Following for:ckd Subjective:no sob/cp no c/o today Current Facility-Administered Medications Medication Dose Route Frequency - doxazosin 2 mg tab(s) (CARDURA) 2 mg ORAL BID - carvedilol 25 mg tab(s) (COREG) 25 mg ORAL BID w MEALS - latanoprost 0.005 % 1 Drop (XALATAN) 1 Drop BOTH EYES AT BEDTIME - NaCl 0.9% 3-5 mL 3-5 mL INTRAVENOUS q 12 H - heparin 5,000 Units injection 5,000 Units SUBCUTANEOUS q 12 H - ondansetron 4 mg tab(s) (ZOFRAN) 4 mg ORAL q 6 H PRN Or - ondansetron (PF) 4 mg injection (ZOFRAN) 4 mg INTRAVENOUS q 6 H PRN - magnesium hydroxide 400 mg/5 mL 30 mL (MOM) 30 mL ORAL DAILY PRN - bisacodyl 10 mg suppository (DULCOLAX) 10 mg RECTAL DAILY PRN - dextrose 40 % 15 g 15 g ORAL PRN Or - glucagon 1 mg injection (GLUCAGEN) 1 mg INTRAMUSCULAR PRN Or - dextrose 50 % 12.5 g injection 12.5 g INTRAVENOUS PRN - NaCl 0.9% 3-5 mL 3-5 mL INTRAVENOUS q 12 H - aluminum-magnesium hydroxide-simethicone 200-200-20 mg/5 mL 30 mL (MAALOX,MYLANTA,MAG-AL PLUS) 30 mL ORAL DAILY PRN - docusate sodium 100 mg cap(s) (COLACE) 100 mg ORAL BID PRN - ipratropium-albuterol 3 mL nebulizer solution (DUONEB) 3 mL INHALATION q 4 H PRN - insulin lispro pen (rapid acting) (HumaLOG KWIKPEN) SUBCUTANEOUS w MEALS - calcium acetate 667 mg tab(s) (CALPHRON) 667 mg ORAL TID w MEALS - atorvastatin 40 mg tab(s) (LIPITOR) 40 mg ORAL AT BEDTIME - aspirin 81 mg chewable tab(s) 81 mg ORAL DAILY - polyethylene glycol 3350 17 g packet (MIRALAX, GLYCOLAX) 17 g ORAL DAILY - gabapentin 200 mg cap(s) (NEURONTIN) 200 mg ORAL DAILY - insulin lispro 6 Units pen (rapid acting) (HumaLOG KWIKPEN) 6 Units SUBCUTANEOUS w MEALS - hydrALAZINE 50 mg tab(s) (APRESOLINE) 50 mg ORAL q 8 H - acetaminophen 650 mg tab(s) (TYLENOL) 650 mg ORAL q 6 H PRN - insulin detemir U-100 13 Units injection (long acting) (LEVEMIR) 13 Units SUBCUTANEOUS DAILY (8 AM) - amoxicillin-clavulanic acid 500 mg tab(s) (AUGMENTIN) 500 mg ORAL q 12 H PHYSICAL EXAM: Physical Exam Performed: BP 138/59 Pulse 74 Temp (Src) 98.6 (Oral) Resp 16 Ht 5' 10 (1.78m) Wt 201 lb 6.4 oz (91.4kg) SpO2 91% BMI 28.90 kg/(m2). O2 Therapy: Room Air BLOOD PRESSURE RANGE: Systolic (24hrs), Av , Min:143 , Max:181 ; Diastolic (24hrs), Av, Min:65, Max:88 GENERAL: well developed, no distress ENMT lips pink oral mucosa moist EYES sclerae white PERRL SKIN: warm dry No rashes or lesions LUNGS: Lungs clear to auscultation no wheezing no crackles, Good diaphragmatic excursion respirations are even and unlabored CARDIAC: S1 and S2; no rubs, murmurs, or gallops ABDOMEN: Abdomen soft, non-tender, BS present in all four quadrants EXTREMITIES: B/l LE edema, clubbing NEURO: Grossly normal cognition, motor function. Sensation grossly intact, Cranial nerves II-XII intact HEME no cervical or axillary lymphadenopathy, no petechiae DATA: Diagnostic tests reviewed for today's visit: Most recent labs and imaging results reviewed if applicable Labs: Recent Labs 04/05/19 0445 04/04/19 0848 WBC 12.21* 13.50* HB 8.1* 8.6* HCT 25.4* 27.4* MCV 92.7 93.5 PLT 318 316 Recent Labs 04/06/19 0245 04/05/19 0445 04/04/19 0450 NA 134* 131* 135* K 4.9 4.9 4.5 CO2 26 26 24 BUN 72* 77* 78* CREAT 2.32* 2.55* 2.32* CA 7.8* 7.7* 7.4* pH, Arterial Date Value Ref Range Status 04/13/2017 7.324 (L) 7.350 - 7.450 Final Specific [place], Ur Date Value Ref Range Status 03/23/2019 1.019 1.005 - 1.030 Final Glucose, Urine Date Value Ref Range Status 03/23/2019 500 (A) Negative mg/dL Final Bilirubin, Urine Date Value Ref Range Status 03/23/2019 NEGATIVE Negative Final Ketones, Urine Date Value Ref Range Status 03/23/2019 NEGATIVE Negative mg/dL Final Hemoglobin/Blood,Ur Date Value Ref Range Status 07/25/2018 Negative Negative Final Protein, Urine Date Value Ref Range Status 03/24/2019 473.4 (H) 0.0 - 11.9 mg/dL Final Urobilinogen, Urine Date Value Ref Range Status 03/23/2019 1.0 0.2 - 1.0 EU/dL Final Nitrites Date Value Ref Range Status 07/25/2018 Negative Negative Final Nitrites Urine Date Value Ref Range Status 03/23/2019 NEGATIVE Negative Final WBC, Urine Date Value Ref Range Status 03/23/2019 >900.0 (H) 0.0 - 5.0 /hpf Final Input / Output: 24 HR: Intake/Output Summary (Last 24 hours) at 04/06/2019 1156 Last data filed at 04/06/2019 1001 Gross per 24 hour Intake 240 ml Output 425 ml Net -185 ml IV Intake: Butler: GARRET prerenal CKD 3 likely DN baseline in 2018 1.2-1.5 outlier 2.39 in 2018 Edema LE 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 with DN AUR resolved HTN Hyperphosphatemia Appreciate urology input Hold ACEI or ARB K 4.9 monitor Scr 2.3 better but will continue to hold lasix for now Veltassa not available Will benefit from veltassa as outpatient if persistent hyperkalemia Can use veltassa 8.4 grams on discharge with close monitoring of K and Mg Low K renal diet Will need bmp 2-3 days after discharge f/u spep upep and light chains still pending 1703 mg per 24 hour protein collection Further w/u 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 SIGNATURE: Bravo Mueller MD PATIENT NAME: Mauri Quinones PAGER: [phone] [facility] PROGRESS HNO ID: [id number] Author: Ortega Timmons Service: Hospital Medicine Author Type: Physician Type: Progress Notes Filed: 04/06/2019 9:44 AM Note Text: DEPARTMENT OF HOSPITAL MEDICINE PROGRESS NOTE SERVICE DATE: 04/06/2019 SERVICE TIME: 9:00 AM Hospital Medicine/Primary Attending: Ortega Timmons MD NIGHT AND WEEKEND COVERAGE: From 7am - 7pm, please call [phone] After 7pm, please call cross cover pager #[phone] Subjective INTERVAL HPI: 63yo M admitted for UTi and acute on chronic kidney disease with uncontrolled type II DM. The patient feels well in no distress, no abdominal pain, no chest pain, no dyspnea no headaches, no blurred vision, and is OOB eating well. No changes. MEDICATIONS: Reviewed Objective PHYSICAL EXAM: BP 138/59 Pulse 74 Temp (Src) 98.6 (Oral) Resp 16 Ht 5' 10 (1.78m) Wt 201 lb 6.4 oz (91.4kg) SpO2 91% BMI 28.90 kg/(m2). O2 Therapy: Room Air Physical Exam Performed GENERAL: Alert, no distress, cooperative SKIN: Skin color, texture, turgor normal. No rashes or lesions. OROPHARYNX: Lips, mucosa, and tongue normal. Teeth and gums normal. Oropharynx normal. LUNGS: Lungs clear to auscultation, Good diaphragmatic excursion, no wheezing, no crackles CARDIAC: Normal S1 and S2; no rubs, murmurs, or gallops, RRR ABDOMEN: Abdomen soft, non-tender, BS normal, No masses or organomegaly EXTREMITIES: Extremities normal, no deformities, edema, clubbing or skin discoloration. Good capillary refill., No ulcers NEURO: Gait normal. Reflexes normal and symmetric. Sensation grossly intact, Cranial nerves II-XII intact PULSES: 2+ radial, 2+ carotid Lines, Drains, and Airways Line Peripheral 04/01/19 1324 Right Antecubital 22 Gauge 4 days Reviewed lines, drains, AND airways. Need to be continued . DATA: Diagnostic tests reviewed for today's visit: Most recent labs and imaging results. Na 134 from 131, Creatinine 2.32 from 2.55, GFR 28 from 25.26, WBC 12.21, Hgb 8.1 Assessment/Plan 1) UTI secondary to Enterococcus Faecalis on Urine culture although CFU is less - Continue Augmentin up until 04/10/2019 and repeat UA on 04/24/2019 with culture as OP 2) Uncontrolled type II DM - Endocrinology on board - Continue Insulin levemir 13units daily in morning - Continue lispro 6 units before meals - ISS - Glucometer checks before meals and at bedtime 3) Acute on CKD stage 4 currently - Nephrology on board - spep upep, light chains, and 24 hours protein urine pending - BMP 2-3 days after discharge - Hold ACEi and ARBs - Will need Kidney biopsy as OP likely. 4) Hyperkalemia improved 5) Neck pain with history of ankylosing spondylitis improved Medication and Non-Pharmacologic VTE Prophylaxis/Anticoagulants Anticoagulant AND Antiplatelet Medications (From admission, onward) Start Dose Route Frequency Ordered Stop 03/25/19 0900 aspirin 81 mg chewable tab(s) 81 mg ORAL DAILY 03/25/19 0816 -- 03/24/19 0300 heparin 5,000 Units injection (Medical At Risk ) 5,000 Units SUBCUTANEOUS EVERY 12 HOURS 03/24/19 0232 -- 03/24/19 0945 activity - mobilize patient ([place]) 03/24/19 0245 pneumatic compression stockings ([place] 03/24/19 0245 activity - mobilize patient ([place]) VTE Prophylaxis: VTE prophylaxis appropriate Disposition: Inpatient awaiting precert Plan of care discussed with: Patient SIGNATURE: Ortega Timmons MD PATIENT NAME: Mauri Quinones DATE: April 06, 2019 TIME: 9:00 AM PAGER/CONTACT #: [phone] [phone] Normal [facility] Basic Panelon 04-05-2019 Creatinine [Mass/Vol] 2.55 mg/dL High 0.67-1.17 [facility] Comment on above: Performed By: #### U RIN2 #### [address] [address] Anion gap [Moles/Vol] 11 mmol/L Normal 8-16 [facility] Comment on above: Performed By: #### U RIN2 #### [address] [address] CO2 [Moles/Vol] 26 mmol/L Normal 21-32 [facility] Comment on above: Performed By: #### U RIN2 #### [address] [address] Glucose [Mass/Vol] 77 mg/dL Normal 70-99 [facility] Comment on above: Performed By: #### U RIN2 #### [address] [address] Urea nitrogen [Mass/Vol] 77 mg/dL High 7-18 [facility] Comment on above: Performed By: #### U RIN2 #### [address] [address] Calcium [Mass/Vol] 7.7 mg/dL Low 8.5-10.1 [facility] Comment on above: Performed By: #### U RIN2 #### [address], [place] [address] Chloride [Moles/Vol] 99 mmol/L Normal 98-107 [facility] Comment on above: Performed By: #### U RIN2 #### [facility] [address] [place], [place] [address] Potassium [Moles/Vol] 4.9 mmol/L Normal 3.5-5.1 [facility] Comment on above: Performed By: #### U RIN2 #### [facility] [address] [place], [place] [address] Sodium [Moles/Vol] 131 mmol/L Low 136-145 [facility] Comment on above: Performed By: #### U RIN2 #### [facility] [address] [place], [place] [address] CONSULT PROGon 04-05-2019 CONSULT PROG HNO ID: [id number] Author: Kiera Gonzalez Service: Endocrinology Author Type: Physician Type: Consult Progress Note Filed: 04/05/2019 8:54 AM Note Text: ENDOCRINOLOGY CONSULT PROGRESS NOTE SERVICE DATE: 04/05/2019 SERVICE TIME: 9:35 AM Subjective INTERVAL HPI: Following for DM type 2. Adm with severe neck and B/L shoulder pain. Has GARRET. Notes and orders reviewed. Pt had erratic po intake, better now. Diet: DIET RENAL Activity: up with help, using walker; ambulated with PT Review of Systems: PAIN ASSESSMENT: still has some neck and shoulder pain GENERAL: No weight loss, malaise or fevers. RESPIRATORY: Negative for cough, hemoptysis, wheezing, COPD, dyspnea or shortness of breath CARDIOVASCULAR: no CP, has edema GI: no nausea, no diarrhea ENDOCRINE: Negative for cold or heat intolerance, polyuria or polydipsia. NEURO: no numbness/weakness extremities The remainder of the review of systems is negative. Current Facility-Administered Medications Medication Dose Route Frequency - doxazosin 2 mg tab(s) (CARDURA) 2 mg ORAL BID - carvedilol 25 mg tab(s) (COREG) 25 mg ORAL BID w MEALS - latanoprost 0.005 % 1 Drop (XALATAN) 1 Drop BOTH EYES AT BEDTIME - NaCl 0.9% 3-5 mL 3-5 mL INTRAVENOUS q 12 H - heparin 5,000 Units injection 5,000 Units SUBCUTANEOUS q 12 H - ondansetron 4 mg tab(s) (ZOFRAN) 4 mg ORAL q 6 H PRN Or - ondansetron (PF) 4 mg injection (ZOFRAN) 4 mg INTRAVENOUS q 6 H PRN - magnesium hydroxide 400 mg/5 mL 30 mL (MOM) 30 mL ORAL DAILY PRN - bisacodyl 10 mg suppository (DULCOLAX) 10 mg RECTAL DAILY PRN - dextrose 40 % 15 g 15 g ORAL PRN Or - glucagon 1 mg injection (GLUCAGEN) 1 mg INTRAMUSCULAR PRN Or - dextrose 50 % 12.5 g injection 12.5 g INTRAVENOUS PRN - NaCl 0.9% 3-5 mL 3-5 mL INTRAVENOUS q 12 H - aluminum-magnesium hydroxide-simethicone 200-200-20 mg/5 mL 30 mL (MAALOX,MYLANTA,MAG-AL PLUS) 30 mL ORAL DAILY PRN - docusate sodium 100 mg cap(s) (COLACE) 100 mg ORAL BID PRN - ipratropium-albuterol 3 mL nebulizer solution (DUONEB) 3 mL INHALATION q 4 H PRN - insulin lispro pen (rapid acting) (HumaLOG KWIKPEN) SUBCUTANEOUS w MEALS - calcium acetate 667 mg tab(s) (CALPHRON) 667 mg ORAL TID w MEALS - atorvastatin 40 mg tab(s) (LIPITOR) 40 mg ORAL AT BEDTIME - aspirin 81 mg chewable tab(s) 81 mg ORAL DAILY - polyethylene glycol 3350 17 g packet (MIRALAX, GLYCOLAX) 17 g ORAL DAILY - gabapentin 200 mg cap(s) (NEURONTIN) 200 mg ORAL DAILY - insulin lispro 6 Units pen (rapid acting) (HumaLOG KWIKPEN) 6 Units SUBCUTANEOUS w MEALS - hydrALAZINE 50 mg tab(s) (APRESOLINE) 50 mg ORAL q 8 H - acetaminophen 650 mg tab(s) (TYLENOL) 650 mg ORAL q 6 H PRN - insulin detemir U-100 13 Units injection (long acting) (LEVEMIR) 13 Units SUBCUTANEOUS DAILY (8 AM) - amoxicillin-clavulanic acid 500 mg tab(s) (AUGMENTIN) 500 mg ORAL q 12 H Objective PHYSICAL EXAM: GENERAL: alert, awake, no distress; hard of hearing (has hearing aid) SKIN: Skin color, texture, turgor normal. No rashes or lesions. OROPHARYNX: Lips, mucosa, and tongue normal. Teeth and gums normal. Oropharynx normal. LUNGS: Lungs clear to auscultation, Good diaphragmatic excursion CARDIAC: Normal S1 and S2; no rubs, murmurs, or gallops ABDOMEN: Abdomen soft, non-tender, BS normal, No masses or organomegaly EXTREMITIES: 1+ edema B/L LE, no clubbing or skin discoloration., No ulcers NEURO: Grossly normal cognition, motor function, and cranial nerves BP 151/64 Pulse 81 Temp (Src) 98.4 (Oral) Resp 18 Ht 5' 10 (1.78m) Wt 200 lb 4.8 oz (90.9kg) SpO2 93% BMI 28.74 kg/(m2). O2 Therapy: Room Air DATA: Diagnostic tests reviewed for today's visit: Most recent labs and imaging results. Last 24 hr BS reviewed. Recent Labs 04/05/19 0646 04/05/19 0445 04/04/19 2108 04/04/19 1646 04/04/19 1044 04/04/19 0630 04/04/19 0450 04/03/19 0400 GLUC -- 77 -- -- -- -- 111* -- 87 GLUCOSEMETER 91 -- 99 105* 158* 118* -- < > -- < > = values in this interval not displayed. Assessment/Plan Type 2 diabetes mellitus, uncontrolled, without complication, with long-term current use of insulin (HCC) POA: Yes Assessment AND Plan: 12-15 ears duration, on insulin for 5 years, Levemir 17 units qhs; off Metformin since 06/2018 due to CKD. A1c 10.4 (was 6.6 in 06/2018 before hip surgery) Checks BS q.o.d. at home, FBS 200-250's at home. BS 287 on adm, no Levemir given on 03/23 hs. Levemir resumed 10 units qam and Humalog 6 units tid started on 03/24 am. BS were high on 03/24; increased Levemir to 15 units qam and Humalog to 8 units tid with SSI on 03/25. BS better but occ <100, reduced Humalog to 6 units tid on 03/27. Was on Levemir 15 units qam and Humalog 6 units tid (held if pt not eating). BS 62 8/8 pm; likely due to increased activity; reduced Levemir to 13 units qam from 8/9 am. Cont Rx, BS are lower with activity and rising creat . D/C plan for rehab noted. Will need Rx for Humalog when pt goes home. Neck/sholuder pain, hx ankylosing spondylitis; pain management seeing pt GARRET (acute kidney injury) ([facility]) POA: Yes Assessment AND Plan: creat sl up again, 2.55(2.32)(2.37)(2.1)(1.92 )(1.81)(1.70)(1.77)(1.86)( 2.09)(2.33)(2.47); baseline 1.54; per renal CKD (chronic kidney disease) stage 3, GFR 30-59 ml/min ([facility]) POA: Yes Assessment AND Plan: creat 1.54 in 07/2018 Arteriosclerotic heart disease (ASHD) POA: Yes Assessment AND Plan: hx Hypertension, essential POA: Yes Assessment AND Plan: per caprice UTI (urinary tract infection) POA: Unknown Assessment AND Plan: on A/B Chronic combined systolic and diastolic CHF (congestive heart failure) ([facility]) POA: Yes Assessment AND Plan: hx SIGNATURE: Kiera Gonzalez MD PATIENT NAME: Mauri Quinones DATE: April 05, 2019 TIME: 9:48 AM PAGER: [phone] Normal [facility] Creatinine 24Hr Uron 019 Creatinine [Mass/Vol] 0.3 g/24 hrs Low 0.9-2.4 A [facility] Comment on above: Performed By: #### U RIN2 #### [facility] [address] [place] [address] Total Volume 542 mL Low [id number] [facility] Comment on above: Performed By: #### U RIN2 #### [facility] [address] [place] [id number] Hemogram/Diffon 04-05-2019 Abs Immature Grans 0.16 thou/cmm High 0.00-0.05 [facility] Comment on above: Performed By: #### U RIN2 #### [facility] [address] [place] [address] Abs Neut (ANC) 9.12 thou/cmm High 1.78-5.38 [facility] Comment on above: Performed By: #### U RIN2 #### [facility] [address] [place] [address] Abs. Baso 0.07 thou/cmm Normal 0.01-0.08 [facility] Comment on above: Performed By: #### U RIN2 #### [facility] [address] [place] [address] Abs. Bucks 1.40 thou/cmm High 0.30-0.82 [facility] Comment on above: Performed By: #### U RIN2 #### [facility] [address] [place] [address] Basophils/100 WBC (Bld) 0.6 % Normal [facility] Comment on above: Performed By: #### U RIN2 #### [facility] [address] [place] [address] Eosinophils (Bld) [#/Vol] 0.43 thou/cmm Normal 0.04-0.54 [facility] Comment on above: Performed By: #### U RIN2 #### [facility] [address] [place] [address] Eosinophils/100 WBC (Bld) 3.5 % Normal [facility] Comment on above: Performed By: #### U RIN2 #### [facility] [address] [place] [address] Erythrocyte distribution width (RBC) [Ratio] 13.6 % Normal 11.6-14.4 [facility] Comment on above: Performed By: #### U RIN2 #### [place] [address] Hematocrit (Bld) [Volume fraction] 25.4 % Low 40.1-51.0 [facility] Comment on above: Performed By: #### U RIN2 #### [place] [address] Hemoglobin (Bld) [Mass/Vol] 8.1 g/dL Low 13.7-17.5 [facility] Comment on above: Performed By: #### U RIN2 #### [facility] [address] [place], [place] [address] Immature Grans 1.30 % Normal [facility] Comment on above: Performed By: #### U RIN2 #### [facility] [address] [place], [place] [address] Lymphocytes (Bld) [#/Vol] 1.03 thou/cmm Normal 0.84-2.85 [facility] Comment on above: Performed By: #### U RIN2 #### [facility] [address] [place], [place] [address] Lymphocytes/100 WBC (Bld) 8.4 % Normal [facility] Comment on above: Performed By: #### U RIN2 #### [facility] [address] [place], [place] [address] MCH (RBC) [Entitic mass] 29.6 pg Normal 25.7-32.2 [facility] Comment on above: Performed By: #### U RIN2 #### [facility] [address] [place], [place] [address] MCHC (RBC) [Mass/Vol] 31.9 % Low 32.3-36.5 [facility] Comment on above: Performed By: #### U RIN2 #### [facility] [address] [place], [place] [address] MCV (RBC) [Entitic vol] 92.7 fL Normal 83.2-95.6 [facility] Comment on above: Performed By: #### U RIN2 #### [facility] [address] [place], [place] [address] Monocytes/100 WBC (Bld) 11.5 % Normal [facility] Comment on above: Performed By: #### U RIN2 #### [facility] [address] [place], [place] [address] Platelet mean volume (Bld) [Entitic vol] 9.3 fL Normal 8.7-12.0 [facility] Comment on above: Performed By: #### U RIN2 #### [facility] [address] [place], [place] [address] Platelets (Bld) [#/Vol] 318 thou/cmm Normal 141-365 [facility] Comment on above: Performed By: #### U RIN2 #### [facility] [address] [place], [place] [address] RBC (Bld) [#/Vol] 2.74 mil/cmm Low 4.63-6.08 [facility] Comment on above: Performed By: #### U RIN2 #### [facility] [address] [place], [place] [address] RDW SD 46.2 fl High 36.1-45.8 [facility] Comment on above: Performed By: #### U RIN2 #### [facility] [address] [place] [address] Seg Neutrophil 74.7 % Normal [facility] Comment on above: Performed By: #### U RIN2 #### [facility] [address] [place], [place] [address] WBC (Bld) [#/Vol] 12.21 thou/cmm High 4.23-9.07 [facility] Comment on above: Performed By: #### U RIN2 #### [facility] [address] [place] [address] PROGRESSon 04-05-2019 PROGRESS HNO ID: [id number] Author: Bravo Mueller Service: Nephrology Author Type: Physician Type: Progress Notes Filed: 04/05/2019 2:32 PM Note Text: CONSULT PROGRESS NOTE SERVICE TIME: 2:30 PM CONSULTING SERVICE: Nephrology Following for:ckd Subjective:no sob/cp no c/o today Current Facility-Administered Medications Medication Dose Route Frequency - doxazosin 2 mg tab(s) (CARDURA) 2 mg ORAL BID - carvedilol 25 mg tab(s) (COREG) 25 mg ORAL BID w MEALS - latanoprost 0.005 % 1 Drop (XALATAN) 1 Drop BOTH EYES AT BEDTIME - NaCl 0.9% 3-5 mL 3-5 mL INTRAVENOUS q 12 H - heparin 5,000 Units injection 5,000 Units SUBCUTANEOUS q 12 H - ondansetron 4 mg tab(s) (ZOFRAN) 4 mg ORAL q 6 H PRN Or - ondansetron (PF) 4 mg injection (ZOFRAN) 4 mg INTRAVENOUS q 6 H PRN - magnesium hydroxide 400 mg/5 mL 30 mL (MOM) 30 mL ORAL DAILY PRN - bisacodyl 10 mg suppository (DULCOLAX) 10 mg RECTAL DAILY PRN - dextrose 40 % 15 g 15 g ORAL PRN Or - glucagon 1 mg injection (GLUCAGEN) 1 mg INTRAMUSCULAR PRN Or - dextrose 50 % 12.5 g injection 12.5 g INTRAVENOUS PRN - NaCl 0.9% 3-5 mL 3-5 mL INTRAVENOUS q 12 H - aluminum-magnesium hydroxide-simethicone 200-200-20 mg/5 mL 30 mL (MAALOX,MYLANTA,MAG-AL PLUS) 30 mL ORAL DAILY PRN - docusate sodium 100 mg cap(s) (COLACE) 100 mg ORAL BID PRN - ipratropium-albuterol 3 mL nebulizer solution (DUONEB) 3 mL INHALATION q 4 H PRN - insulin lispro pen (rapid acting) (HumaLOG KWIKPEN) SUBCUTANEOUS w MEALS - calcium acetate 667 mg tab(s) (CALPHRON) 667 mg ORAL TID w MEALS - atorvastatin 40 mg tab(s) (LIPITOR) 40 mg ORAL AT BEDTIME - aspirin 81 mg chewable tab(s) 81 mg ORAL DAILY - polyethylene glycol 3350 17 g packet (MIRALAX, GLYCOLAX) 17 g ORAL DAILY - gabapentin 200 mg cap(s) (NEURONTIN) 200 mg ORAL DAILY - insulin lispro 6 Units pen (rapid acting) (HumaLOG KWIKPEN) 6 Units SUBCUTANEOUS w MEALS - hydrALAZINE 50 mg tab(s) (APRESOLINE) 50 mg ORAL q 8 H - acetaminophen 650 mg tab(s) (TYLENOL) 650 mg ORAL q 6 H PRN - insulin detemir U-100 13 Units injection (long acting) (LEVEMIR) 13 Units SUBCUTANEOUS DAILY (8 AM) - amoxicillin-clavulanic acid 500 mg tab(s) (AUGMENTIN) 500 mg ORAL q 12 H PHYSICAL EXAM: Physical Exam Performed: BP 151/64 Pulse 81 Temp (Src) 98.4 (Oral) Resp 18 Ht 5' 10 (1.78m) Wt 200 lb 4.8 oz (90.9kg) SpO2 93% BMI 28.74 kg/(m2). O2 Therapy: Room Air BLOOD PRESSURE RANGE: Systolic (24hrs), Av , Min:143 , Max:181 ; Diastolic (24hrs), Av, Min:65, Max:88 GENERAL: well developed, no distress ENMT lips pink oral mucosa moist EYES sclerae white PERRL SKIN: warm dry No rashes or lesions LUNGS: Lungs clear to auscultation no wheezing no crackles, Good diaphragmatic excursion respirations are even and unlabored CARDIAC: S1 and S2; no rubs, murmurs, or gallops ABDOMEN: Abdomen soft, non-tender, BS present in all four quadrants EXTREMITIES: B/l LE edema, clubbing NEURO: Grossly normal cognition, motor function. Sensation grossly intact, Cranial nerves II-XII intact HEME no cervical or axillary lymphadenopathy, no petechiae DATA: Diagnostic tests reviewed for today's visit: Most recent labs and imaging results reviewed if applicable Labs: Recent Labs 04/05/195 04/04/19 0848 04/03/19 0400 WBC 12.21* 13.50* 13.38* HB 8.1* 8.6* 9.1* HCT 25.4* 27.4* 29.0* MCV 92.7 93.5 93.5 PLT 318 316 349 Recent Labs 04/05/195 04/04/19 0450 04/03/19 0400 NA 131* 135* 132* K 4.9 4.5 4.7 CO2 26 24 25 BUN 77* 78* 78* CREAT 2.55* 2.32* 2.37* CA 7.7* 7.4* 8.1* pH, Arterial Date Value Ref Range Status 04/13/2017 7.324 (L) 7.350 - 7.450 Final Specific [place], Ur Date Value Ref Range Status 03/23/2019 1.019 1.005 - 1.030 Final Glucose, Urine Date Value Ref Range Status 03/23/2019 500 (A) Negative mg/dL Final Bilirubin, Urine Date Value Ref Range Status 03/23/2019 NEGATIVE Negative Final Ketones, Urine Date Value Ref Range Status 03/23/2019 NEGATIVE Negative mg/dL Final Hemoglobin/Blood,Ur Date Value Ref Range Status 07/25/2018 Negative Negative Final Protein, Urine Date Value Ref Range Status 03/24/2019 473.4 (H) 0.0 - 11.9 mg/dL Final Urobilinogen, Urine Date Value Ref Range Status 03/23/2019 1.0 0.2 - 1.0 EU/dL Final Nitrites Date Value Ref Range Status 07/25/2018 Negative Negative Final Nitrites Urine Date Value Ref Range Status 03/23/2019 NEGATIVE Negative Final WBC, Urine Date Value Ref Range Status 03/23/2019 >900.0 (H) 0.0 - 5.0 /hpf Final Input / Output: 24 HR: Intake/Output Summary (Last 24 hours) at 04/05/2019 1430 Last data filed at 04/05/2019 1035 Gross per 24 hour Intake ? 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 SIGNATURE: Bravo Mueller MD PATIENT NAME: Mauri Quinones PAGER: [phone] [facility] PROGRESS HNO ID: [id number] Author: Ortega Timmons Service: Hospital Medicine Author Type: Physician Type: Progress Notes Filed: 04/05/2019 2:07 PM Note Text: DEPARTMENT OF HOSPITAL MEDICINE PROGRESS NOTE SERVICE DATE: 04/05/2019 SERVICE TIME: 2:01 PM Hospital Medicine/Primary Attending: Ortega Timmons MD NIGHT AND WEEKEND COVERAGE: From 7am - 7pm, please call [phone] After 7pm, please call cross cover pager #[phone] Subjective INTERVAL HPI: 63yo M admitted for UTi and acute on chronic kidney disease with uncontrolled type II DM. The patient feels well in no distress, no abdominal pain, no chest pain, no dyspnea no headaches, no blurred vision, and is OOB eating well. MEDICATIONS: Reviewed Objective PHYSICAL EXAM: BP 151/64 Pulse 81 Temp (Src) 98.4 (Oral) Resp 18 Ht 5' 10 (1.78m) Wt 200 lb 4.8 oz (90.9kg) SpO2 93% BMI 28.74 kg/(m2). O2 Therapy: Room Air Physical Exam Performed GENERAL: Alert, no distress, cooperative SKIN: Skin color, texture, turgor normal. No rashes or lesions. OROPHARYNX: Lips, mucosa, and tongue normal. Teeth and gums normal. Oropharynx normal. LUNGS: Lungs clear to auscultation, Good diaphragmatic excursion, no wheezing, no crackles CARDIAC: Normal S1 and S2; no rubs, murmurs, or gallops, RRR ABDOMEN: Abdomen soft, non-tender, BS normal, No masses or organomegaly EXTREMITIES: Extremities normal, no deformities, edema, clubbing or skin discoloration. Good capillary refill., No ulcers NEURO: Gait normal. Reflexes normal and symmetric. Sensation grossly intact, Cranial nerves II-XII intact PULSES: 2+ radial, 2+ carotid Lines, Drains, and Airways Line Peripheral 04/01/19 1324 Right Antecubital 22 Gauge 4 days Reviewed lines, drains, AND airways. Need to be continued . DATA: Diagnostic tests reviewed for today's visit: Most recent labs and imaging results. Na 131, Creatinine 2.55, GFR 25.26, WBC 12.21, Hgb 8.1 Assessment/Plan 1) UTI secondary to Enterococcus Faecalis on Urine culture although CFU is less - Continue Augmentin up until 04/10/2019 and repeat UA on 04/24/2019 with culture as OP 2) Uncontrolled type II DM - Endocrinology on board - Continue Insulin levemir 13units daily in morning - Continue lispro 6 units before meals - ISS - Glucometer checks before meals and at bedtime 3) Acute on CKD stage 4 currently - Nephrology on board - spep upep, light chains, and 24 hours protein urine pending - BMP 2-3 days after discharge - Hold ACEi and ARBs 4) Hyperkalemia improved 5) Neck pain with history of ankylosing spondylitis improved Medication and Non-Pharmacologic VTE Prophylaxis/Anticoagulants Anticoagulant AND Antiplatelet Medications (From admission, onward) Start Dose Route Frequency Ordered Stop 03/25/19 0900 aspirin 81 mg chewable tab(s) 81 mg ORAL DAILY 03/25/19 0816 -- 03/24/19 0300 heparin 5,000 Units injection (Medical At Risk ) 5,000 Units SUBCUTANEOUS EVERY 12 HOURS 03/24/19 0232 -- 03/24/19 0945 activity - mobilize patient ([place]) 03/24/19 0245 pneumatic compression stockings ([place]) 03/24/19 0245 activity - mobilize patient ([place]) VTE Prophylaxis: VTE prophylaxis appropriate Disposition: Inpatient Plan of care discussed with: Patient SIGNATURE: Ortega Timmons MD PATIENT NAME: Mauri Quinones DATE: April 05, 2019 TIME: 2:01 PM PAGER/CONTACT #: [phone] Normal [facility] Protein 24Hr Uron 04-05-2019 Protein [Mass/Vol] 1703.0 mg/24 hrs High 0.0-149.0 [facility] Comment on above: Performed By: #### U RIN2 #### [place] [address] Basic Panelon 04-04-2019 Creatinine [Mass/Vol] 2.32 mg/dL High 0.67-1.17 [facility] Comment on above: Performed By: #### U RIN2 #### [place] [address] Anion gap [Moles/Vol] 14 mmol/L Normal 8-16 [facility] Comment on above: Performed By: #### U RIN2 #### [address] [address] CO2 [Moles/Vol] 24 mmol/L Normal 21-32 [facility] Comment on above: Performed By: #### U RIN2 #### [place] [address] Glucose [Mass/Vol] 111 mg/dL High 70-99 [facility] Comment on above: Performed By: #### U RIN2 #### [facility] [address] [place] [address] Urea nitrogen [Mass/Vol] 78 mg/dL High 7-18 [facility] Comment on above: Performed By: #### U RIN2 #### [facility] [address] [place] [address] Calcium [Mass/Vol] 7.4 mg/dL Low 8.5-10.1 [facility] Comment on above: Performed By: #### U RIN2 #### [facility] [address] [place] [address] Chloride [Moles/Vol] 102 mmol/L Normal 98-107 [facility] Comment on above: Performed By: #### U RIN2 #### [facility] [address] [place] [address] Potassium [Moles/Vol] 4.5 mmol/L Normal 3.5-5.1 [facility] Comment on above: Performed By: #### U RIN2 #### [facility] [address] [place] [address] Sodium [Moles/Vol] 135 mmol/L Low 136-145 [facility] Comment on above: Performed By: #### U RIN2 #### [facility] [address] [place] [address] CASE MANAGEMon 04-04-2019 CASE MANAGEM HNO ID: [id number] Author: Jocelin Guzman) BISMARK Pagan Service: Care Management Author Type: Registered Nurse Type: Care Mgt Progress Note Filed: 04/04/2019 1:12 PM Note Text: CARE MANAGEMENT PROGRESS NOTE SERVICE DATE: 04/04/2019 SERVICE TIME: 1:05 PM LOS: 11 days Met with pt ,, and cousin Staci at bedside. Discussed SNF choices and both have accepted pt, I am waiting on precert to be obtained. SIGNATURE: Jocelin Pagan RN PATIENT NAME: Mauri Quinones DATE: April 04, 2019 TIME: 1:05 PM PAGER/CONTACT #: [phone] Normal [facility] CONSULT PROGon 04-04-2019 CONSULT PROG HNO ID: [id number] Author: Mohsen Castellanos Service: Infectious Disease Author Type: Physician Type: Consult Progress Note Filed: 04/04/2019 12:23 PM Note Text: 04/04/2019 12:18 PM Infectious Disease Afebrile, feels good. Voiding with no difficulty, no PVR, Urology signed off. Minimal cough, no sputum production. Still weak, unsteady if up. BP 142/113 Pulse 75 Temp 36.9 ?C (98.4 ?F) (Oral) Resp 16 Ht 177.8 cm (5' 10) Wt 90.3 kg (199 lb) SpO2 95% BMI 28.55 kg/m? Oral mucosa moist, no thrush Lungs few rhonchi left base Ht reg no m Abd nontender Ext- pedal edema Recent Labs 04/04/19 0848 04/04/19 0450 04/03/19 0400 04/02/19 0131 WBC 13.50* -- 13.38* -- HB 8.6* -- 9.1* -- HCT 27.4* -- 29.0* -- PLT 316 -- 349 -- NEUTNUM 10.53* -- 10.22* -- CREAT -- 2.32* 2.37* 2.10* Imp: UTI- Enterococcus Possible pneumonia LLL GARRET/CKD- Renal following Persistent leukocytosis. DM-2 CHF Rec: Change unasyn to po augmentin 500 mg bid, treat through 04/10. Discharge per IM, Nephrology services. Follow up with PCP. Should repeat ua and urine cult around 04/24. No ID office follow up needed. D/W pt and . Mohsen Castellanos MD [facility] CONSULT PROG HNO ID: [id number] Author: Kiera Gonzalez Service: Endocrinology Author Type: Physician Type: Consult Progress Note Filed: 04/04/2019 9:48 AM Note Text: ENDOCRINOLOGY CONSULT PROGRESS NOTE SERVICE DATE: 04/04/2019 SERVICE TIME: 9:35 AM Subjective INTERVAL HPI: Following for DM type 2. Adm with severe neck and B/L shoulder pain. Has GARRET. Notes and orders reviewed. Pt had erratic po intake, better now. Diet: DIET RENAL Activity: up with help, using walker; ambulated with PT Review of Systems: PAIN ASSESSMENT: still has some neck and shoulder pain GENERAL: No weight loss, malaise or fevers. RESPIRATORY: Negative for cough, hemoptysis, wheezing, COPD, dyspnea or shortness of breath CARDIOVASCULAR: no CP, has edema GI: no nausea, no diarrhea ENDOCRINE: Negative for cold or heat intolerance, polyuria or polydipsia. NEURO: no numbness/weakness extremities The remainder of the review of systems is negative. Current Facility-Administered Medications Medication Dose Route Frequency - doxazosin 2 mg tab(s) (CARDURA) 2 mg ORAL BID - carvedilol 25 mg tab(s) (COREG) 25 mg ORAL BID w MEALS - latanoprost 0.005 % 1 Drop (XALATAN) 1 Drop BOTH EYES AT BEDTIME - NaCl 0.9% 3-5 mL 3-5 mL INTRAVENOUS q 12 H - heparin 5,000 Units injection 5,000 Units SUBCUTANEOUS q 12 H - ondansetron 4 mg tab(s) (ZOFRAN) 4 mg ORAL q 6 H PRN Or - ondansetron (PF) 4 mg injection (ZOFRAN) 4 mg INTRAVENOUS q 6 H PRN - magnesium hydroxide 400 mg/5 mL 30 mL (MOM) 30 mL ORAL DAILY PRN - bisacodyl 10 mg suppository (DULCOLAX) 10 mg RECTAL DAILY PRN - dextrose 40 % 15 g 15 g ORAL PRN Or - glucagon 1 mg injection (GLUCAGEN) 1 mg INTRAMUSCULAR PRN Or - dextrose 50 % 12.5 g injection 12.5 g INTRAVENOUS PRN - NaCl 0.9% 3-5 mL 3-5 mL INTRAVENOUS q 12 H - aluminum-magnesium hydroxide-simethicone 200-200-20 mg/5 mL 30 mL (MAALOX,MYLANTA,MAG-AL PLUS) 30 mL ORAL DAILY PRN - docusate sodium 100 mg cap(s) (COLACE) 100 mg ORAL BID PRN - ipratropium-albuterol 3 mL nebulizer solution (DUONEB) 3 mL INHALATION q 4 H PRN - insulin lispro pen (rapid acting) (HumaLOG KWIKPEN) SUBCUTANEOUS w MEALS - calcium acetate 667 mg tab(s) (CALPHRON) 667 mg ORAL TID w MEALS - atorvastatin 40 mg tab(s) (LIPITOR) 40 mg ORAL AT BEDTIME - aspirin 81 mg chewable tab(s) 81 mg ORAL DAILY - polyethylene glycol 3350 17 g packet (MIRALAX, GLYCOLAX) 17 g ORAL DAILY - gabapentin 200 mg cap(s) (NEURONTIN) 200 mg ORAL DAILY - insulin lispro 6 Units pen (rapid acting) (HumaLOG KWIKPEN) 6 Units SUBCUTANEOUS w MEALS - hydrALAZINE 50 mg tab(s) (APRESOLINE) 50 mg ORAL q 8 H - acetaminophen 650 mg tab(s) (TYLENOL) 650 mg ORAL q 6 H PRN - ampicillin-sulbactam 3 g in NaCl 0.9% 100 mL MB+/ADD-[place] (UNASYN) 3 g INTRAVENOUS q 8 H - insulin detemir U-100 13 Units injection (long acting) (LEVEMIR) 13 Units SUBCUTANEOUS DAILY (8 AM) Objective PHYSICAL EXAM: GENERAL: sleepy, awakens easily, no distress; hard of hearing (has hearing aid) SKIN: Skin color, texture, turgor normal. No rashes or lesions. OROPHARYNX: Lips, mucosa, and tongue normal. Teeth and gums normal. Oropharynx normal. LUNGS: Lungs clear to auscultation, Good diaphragmatic excursion CARDIAC: Normal S1 and S2; no rubs, murmurs, or gallops ABDOMEN: Abdomen soft, non-tender, BS normal, No masses or organomegaly EXTREMITIES: 1+ edema B/L LE, no clubbing or skin discoloration., No ulcers NEURO: Grossly normal cognition, motor function, and cranial nerves BP 142/113 Pulse 75 Temp (Src) 98.4 (Oral) Resp 16 Ht 5' 10 (1.78m) Wt 199 lb (90.3kg) SpO2 95% BMI 28.55 kg/(m2). O2 Therapy: Room Air DATA: Diagnostic tests reviewed for today's visit: Most recent labs and imaging results. Last 24 hr BS reviewed. Recent Labs 04/04/19 0630 04/04/19 0450 04/03/19 1619 04/03/19 1039 04/03/19 0632 04/03/19 0400 04/02/193 04/02/19 0131 GLUC -- 111* -- -- -- 87 -- -- 91 GLUCOSEMETER 118* -- 62* 124* 101* -- 100* < > -- < > = values in this interval not displayed. Assessment/Plan Type 2 diabetes mellitus, uncontrolled, without complication, with long-term current use of insulin ([facility]) POA: Yes Assessment AND Plan: 12-15 ears duration, on insulin for 5 years, Levemir 17 units qhs; off Metformin since 06/2018 due to CKD. A1c 10.4 (was 6.6 in 06/2018 before hip surgery) Checks BS q.o.d. at home, FBS 200-250's at home. BS 287 on adm, no Levemir given on 03/23 hs. Levemir resumed 10 units qam and Humalog 6 units tid started on 03/24 am. BS were high on 03/24; increased Levemir to 15 units qam and Humalog to 8 units tid with SSI on 03/25. BS better but occ <100, reduced Humalog to 6 units tid on 03/27. On Levemir 15 units qam and Humalog 6 units tid (held if pt not eating). BS 62 last pm; likely due to increased activity; reduced Levemir to 13 units qam from today am. D/C plan for rehab noted. Will need Rx for Humalog when goes home. Neck/sholuder pain, hx ankylosing spondylitis; pain management seeing pt GARRET (acute kidney injury) ([facility]) POA: Yes Assessment AND Plan: creat sl up again, 2.32(2.37)(2.1)(1.92)(1.81 )(1.70)(1.77)(1.86)(2.09)( 2.33)(2.47); baseline 1.54; per renal CKD (chronic kidney disease) stage 3, GFR 30-59 ml/min ([facility]) POA: Yes Assessment AND Plan: creat 1.54 in 07/2018 Arteriosclerotic heart disease (ASHD) POA: Yes Assessment AND Plan: hx Hypertension, essential POA: Yes Assessment AND Plan: per caprice UTI (urinary tract infection) POA: Unknown Assessment AND Plan: on A/B Chronic combined systolic and diastolic CHF (congestive heart failure) ([facility]) POA: Yes Assessment AND Plan: hx SIGNATURE: Kiera Gonzalez MD PATIENT NAME: Mauri Quinones DATE: April 04, 2019 TIME: 9:48 AM PAGER: [phone] Normal [facility] Hemogram/Diffon 04-04-2019 Abs Immature Grans 0.20 thou/cmm High 0.00-0.05 [facility] Comment on above: Performed By: #### U RIN2 #### [facility] [address] [place] [address] Abs Neut (ANC) 10.53 thou/cmm High 1.78-5.38 [facility] Comment on above: Performed By: #### U RIN2 #### [facility] [address] [place] [address] Abs. Baso 0.05 thou/cmm Normal 0.01-0.08 [facility] Comment on above: Performed By: #### U RIN2 #### [place] [address] Abs. [place] 1.34 thou/cmm High 0.30-0.82 [facility] Comment on above: Performed By: #### U RIN2 #### [place] [address] Basophils/100 WBC (Bld) 0.4 % Normal [facility] Comment on above: Performed By: #### U RIN2 #### [place] [address] Eosinophils (Bld) [#/Vol] 0.43 thou/cmm Normal 0.04-0.54 [facility] Comment on above: Performed By: #### U RIN2 #### [place] [address] Eosinophils/100 WBC (Bld) 3.2 % Normal [facility] Comment on above: Performed By: #### U RIN2 #### [place] [address] Immature Grans 1.50 % Normal [facility] Comment on above: Performed By: #### U RIN2 #### [place] [address] Lymphocytes (Bld) [#/Vol] 0.95 thou/cmm Normal 0.84-2.85 [facility] Comment on above: Performed By: #### U RIN2 #### [facility] [address] [place], [place] [address] Lymphocytes/100 WBC (Bld) 7.0 % Normal [facility] Comment on above: Performed By: #### U RIN2 #### [facility] [address] [place] [id number] Monocytes/100 WBC (Bld) 9.9 % Normal [facility] Comment on above: Performed By: #### U RIN2 #### [facility] [address] [place] [address] Seg Neutrophil 78.0 % Normal [facility] Comment on above: Performed By: #### U RIN2 #### [facility] [address] [place] [address] Erythrocyte distribution width (RBC) [Ratio] 13.6 % Normal 11.6-14.4 [facility] Comment on above: Performed By: #### U RIN2 #### [facility] [address] [place] [address] Hematocrit (Bld) [Volume fraction] 27.4 % Low 40.1-51.0 [facility] Comment on above: Performed By: #### U RIN2 #### [facility] [address] [place] [address] Hemoglobin (Bld) [Mass/Vol] 8.6 g/dL Low 13.7-17.5 [facility] Comment on above: Performed By: #### U RIN2 #### [facility] [address] [place] [address] MCH (RBC) [Entitic mass] 29.4 pg Normal 25.7-32.2 [facility] Comment on above: Performed By: #### U RIN2 #### [facility] [address] [place] [address] MCHC (RBC) [Mass/Vol] 31.4 % Low 32.3-36.5 [facility] Comment on above: Performed By: #### U RIN2 #### [facility] [address] [place] [address] MCV (RBC) [Entitic vol] 93.5 fL Normal 83.2-95.6 [facility] Comment on above: Performed By: #### U RIN2 #### [facility] [address] [place], [place] [address] Platelet mean volume (Bld) [Entitic vol] 9.3 fL Normal 8.7-12.0 [facility] Comment on above: Performed By: #### U RIN2 #### [facility] [address] [place], [place] [address] Platelets (Bld) [#/Vol] 316 thou/cmm Normal 141-365 [facility] Comment on above: Performed By: #### U RIN2 #### [facility] [address] [place], [place] [address] RBC (Bld) [#/Vol] 2.93 mil/cmm Low 4.63-6.08 [facility] Comment on above: Performed By: #### U RIN2 #### [facility] [address] [place] [address] RDW SD 46.5 fl High 36.1-45.8 [facility] Comment on above: Performed By: #### U RIN2 #### [facility] [address] [place], [place] [address] WBC (Bld) [#/Vol] 13.50 thou/cmm High 4.23-9.07 [facility] Comment on above: Performed By: #### U RIN2 #### [place] [address] NURSING PROGon 04-04-2019 NURSING PROG HNO ID: [id number] Author: Vandana (Rn) BISMARK Stephen Service: ? Author Type: Registered Nurse Type: Nursing Progress Note Filed: 04/04/2019 4:41 PM Note Text: Nursing Progress Note Patient Name: Mauri Quinones Patient Location: [id number] Daily Note: pt up walking the key with walker, to the nurses station, steady on feet with no complaints at this time, pt returned to the room at bedside. This note was completed by: Vandana Stephen RN [facility] PROGRESSon 04-04-2019 PROGRESS HNO ID: [id number] Author: Bravo Lamb) Ervin Service: Nephrology Author Type: Physician Type: Progress Notes Filed: 04/04/2019 3:28 PM Note Text: CONSULT PROGRESS NOTE SERVICE TIME: 3:25 PM CONSULTING SERVICE: Nephrology Following for:ckd Subjective:no sob/cp no c/o today Current Facility-Administered Medications Medication Dose Route Frequency - doxazosin 2 mg tab(s) (CARDURA) 2 mg ORAL BID - carvedilol 25 mg tab(s) (COREG) 25 mg ORAL BID w MEALS - latanoprost 0.005 % 1 Drop (XALATAN) 1 Drop BOTH EYES AT BEDTIME - NaCl 0.9% 3-5 mL 3-5 mL INTRAVENOUS q 12 H - heparin 5,000 Units injection 5,000 Units SUBCUTANEOUS q 12 H - ondansetron 4 mg tab(s) (ZOFRAN) 4 mg ORAL q 6 H PRN Or - ondansetron (PF) 4 mg injection (ZOFRAN) 4 mg INTRAVENOUS q 6 H PRN - magnesium hydroxide 400 mg/5 mL 30 mL (MOM) 30 mL ORAL DAILY PRN - bisacodyl 10 mg suppository (DULCOLAX) 10 mg RECTAL DAILY PRN - dextrose 40 % 15 g 15 g ORAL PRN Or - glucagon 1 mg injection (GLUCAGEN) 1 mg INTRAMUSCULAR PRN Or - dextrose 50 % 12.5 g injection 12.5 g INTRAVENOUS PRN - NaCl 0.9% 3-5 mL 3-5 mL INTRAVENOUS q 12 H - aluminum-magnesium hydroxide-simethicone 200-200-20 mg/5 mL 30 mL (MAALOX,MYLANTA,MAG-AL PLUS) 30 mL ORAL DAILY PRN - docusate sodium 100 mg cap(s) (COLACE) 100 mg ORAL BID PRN - ipratropium-albuterol 3 mL nebulizer solution (DUONEB) 3 mL INHALATION q 4 H PRN - insulin lispro pen (rapid acting) (HumaLOG KWIKPEN) SUBCUTANEOUS w MEALS - calcium acetate 667 mg tab(s) (CALPHRON) 667 mg ORAL TID w MEALS - atorvastatin 40 mg tab(s) (LIPITOR) 40 mg ORAL AT BEDTIME - aspirin 81 mg chewable tab(s) 81 mg ORAL DAILY - polyethylene glycol 3350 17 g packet (MIRALAX, GLYCOLAX) 17 g ORAL DAILY - gabapentin 200 mg cap(s) (NEURONTIN) 200 mg ORAL DAILY - insulin lispro 6 Units pen (rapid acting) (HumaLOG KWIKPEN) 6 Units SUBCUTANEOUS w MEALS - hydrALAZINE 50 mg tab(s) (APRESOLINE) 50 mg ORAL q 8 H - acetaminophen 650 mg tab(s) (TYLENOL) 650 mg ORAL q 6 H PRN - insulin detemir U-100 13 Units injection (long acting) (LEVEMIR) 13 Units SUBCUTANEOUS DAILY (8 AM) - amoxicillin-clavulanic acid 500 mg tab(s) (AUGMENTIN) 500 mg ORAL q 12 H PHYSICAL EXAM: Physical Exam Performed: BP 139/59 Pulse 71 Temp (Src) 98.6 (Oral) Resp 18 Ht 5' 10 (1.78m) Wt 199 lb (90.3kg) SpO2 94% BMI 28.55 kg/(m2). O2 Therapy: Room Air BLOOD PRESSURE RANGE: Systolic (24hrs), Av , Min:143 , Max:181 ; Diastolic (24hrs), Av, Min:65, Max:88 GENERAL: well developed, no distress ENMT lips pink oral mucosa moist EYES sclerae white PERRL SKIN: warm dry No rashes or lesions LUNGS: Lungs clear to auscultation no wheezing no crackles, Good diaphragmatic excursion respirations are even and unlabored CARDIAC: S1 and S2; no rubs, murmurs, or gallops ABDOMEN: Abdomen soft, non-tender, BS present in all four quadrants EXTREMITIES: B/l LE edema, clubbing NEURO: Grossly normal cognition, motor function. Sensation grossly intact, Cranial nerves II-XII intact HEME no cervical or axillary lymphadenopathy, no petechiae DATA: Diagnostic tests reviewed for today's visit: Most recent labs and imaging results reviewed if applicable Labs: Recent Labs 04/04/19 0848 04/03/19 0400 WBC 13.50* 13.38* HB 8.6* 9.1* HCT 27.4* 29.0* MCV 93.5 93.5 PLT 316 349 Recent Labs 04/04/19 0450 04/03/19 0400 04/02/19 0131 NA 135* 132* 136 K 4.5 4.7 5.4* CO2 24 25 26 BUN 78* 78* 81* CREAT 2.32* 2.37* 2.10* CA 7.4* 8.1* 7.8* pH, Arterial Date Value Ref Range Status 04/13/2017 7.324 (L) 7.350 - 7.450 Final Specific [place], Ur Date Value Ref Range Status 03/23/2019 1.019 1.005 - 1.030 Final Glucose, Urine Date Value Ref Range Status 03/23/2019 500 (A) Negative mg/dL Final Bilirubin, Urine Date Value Ref Range Status 03/23/2019 NEGATIVE Negative Final Ketones, Urine Date Value Ref Range Status 03/23/2019 NEGATIVE Negative mg/dL Final Hemoglobin/Blood,Ur Date Value Ref Range Status 07/25/2018 Negative Negative Final Protein, Urine Date Value Ref Range Status 03/24/2019 473.4 (H) 0.0 - 11.9 mg/dL Final Urobilinogen, Urine Date Value Ref Range Status 03/23/2019 1.0 0.2 - 1.0 EU/dL Final Nitrites Date Value Ref Range Status 07/25/2018 Negative Negative Final Nitrites Urine Date Value Ref Range Status 03/23/2019 NEGATIVE Negative Final WBC, Urine Date Value Ref Range Status 03/23/2019 >900.0 (H) 0.0 - 5.0 /hpf Final Input / Output: 24 HR: No intake or output data in the 24 hours ending 04/04/19 1525 IV Intake: [place]: GARRET prerenal CKD 3 likely DN baseline in 2018 1.2-1.5 outlier 2.39 in 2018 Edema LE 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 with DN AUR resolved HTN Hyperphosphatemia Appreciate urology input Hold ACEI or ARB till K better K 4.5 monitor Scr 2.32 hold lasix for now Veltassa not available Will benefit from veltassa as outpatient if persistent hyperkalemia Can use veltassa 8.4 grams on discharge with close monitoring of K and Mg Low K renal diet Will need bmp 2-3 days after discharge f/u spep upep and light chains and 24 hour protein collection Further w/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 SIGNATURE: Bravo Mueller MD PATIENT NAME: Mauri Quinones PAGER: [phone] Normal [facility] PROGRESS HNO ID: [id number] Author: Jose Marcial Service: Hospital Medicine Author Type: Physician Type: Progress Notes Filed: 04/04/2019 6:39 PM Note Text: DEPARTMENT OF HOSPITAL MEDICINE PROGRESS NOTE SERVICE DATE: 04/04/2019 SERVICE TIME: 10:34 AM Hospital Medicine/Primary Attending: Jose Marcial, DO NIGHT AND WEEKEND COVERAGE: From 7am - 7pm, please call [place] After 7pm, please call cross cover pager #[phone] Subjective INTERVAL HPI: Patient seen and examined. No new complaints. Requesting to be discharged home if no facility available. MEDICATIONS: Reviewed Objective PHYSICAL EXAM: BP 164/74 Pulse 71 Temp (Src) 98.6 (Oral) Resp 18 Ht 5' 10 (1.78m) Wt 199 lb (90.3kg) SpO2 94% BMI 28.55 kg/(m2). O2 Therapy: Room Air Physical Exam Performed General: Alert, NAD, cooperative CV: RRR, +[id number], no murmur Resp: CTA b/l, no wheeze Abd: soft, NTND, +Bowel sounds Ext: no LE edema. Lines, Drains, and Airways Line Peripheral 04/01/19 1324 Right Antecubital 22 Gauge 3 days Reviewed lines, drains, AND airways. Need to be continued . DATA: Diagnostic tests reviewed for today's visit: Most recent labs and imaging results. Assessment/Plan 1. UTI - on abx per ID. Leukocytosis trending down. 2. Neck pain w/hx of ankylosing spondylitis - Improved 3. GARRET on CKD3 - mgmt per nephrology. Lasix held. No significant urinary retention. 4. Hyperkalemia - Improved. Nephrology recommending Veltessa on discharge if hyperkalemia persistent. 5. DM II - Levemir 13 Units qAM, lispro 6 units TID w/SSI coverage Medication and Non-Pharmacologic VTE Prophylaxis/Anticoagulants Anticoagulant AND Antiplatelet Medications (From admission, onward) Start Dose Route Frequency Ordered Stop 03/25/19 0900 aspirin 81 mg chewable tab(s) 81 mg ORAL DAILY 03/25/19 0816 -- 03/24/19 0300 heparin 5,000 Units injection (Medical At Risk ) 5,000 Units SUBCUTANEOUS EVERY 12 HOURS 03/24/19 0232 -- 03/24/19 0945 activity - mobilize patient ([place], [place]) 03/24/19 0245 pneumatic compression stockings ([place], [place]) 03/24/19 0245 activity - mobilize patient ([place]) VTE Prophylaxis: VTE prophylaxis appropriate Disposition: SNF vs Home with HHC. Await pt/familyd decision. Stable for discharge. Plan of care discussed with: Patient, Care Management and RN SIGNATURE: Jose Marcial DO PATIENT NAME: Mauri Quinones DATE: April 04, 2019 TIME: 6:34 PM PAGER/CONTACT #: Maureen Green Normal [facility] Basic Panelon 04-03-2019 Creatinine [Mass/Vol] 2.37 mg/dL High 0.67-1.17 [facility] Comment on above: Performed By: #### U RIN2 #### [address] [address] Anion gap [Moles/Vol] 13 mmol/L Normal 8-16 [facility] Comment on above: Performed By: #### U RIN2 #### [address] [address] CO2 [Moles/Vol] 25 mmol/L Normal 21-32 [facility] Comment on above: Performed By: #### U RIN2 #### [address] [address] Glucose [Mass/Vol] 87 mg/dL Normal 70-99 [facility] Comment on above: Performed By: #### U RIN2 #### [address] [address] Urea nitrogen [Mass/Vol] 78 mg/dL High 7-18 [facility] Comment on above: Performed By: #### U RIN2 #### [address] [address] Calcium [Mass/Vol] 8.1 mg/dL Low 8.5-10.1 [facility] Comment on above: Performed By: #### U RIN2 #### [facility] [address] [address] Chloride [Moles/Vol] 99 mmol/L Normal 98-107 [facility] Comment on above: Performed By: #### U RIN2 #### [facility] [address] [address] Potassium [Moles/Vol] 4.7 mmol/L Normal 3.5-5.1 [facility] Comment on above: Performed By: #### U RIN2 #### [facility] [address] [address] Sodium [Moles/Vol] 132 mmol/L Low 136-145 [facility] Comment on above: Performed By: #### U RIN2 #### [facility] [address] [address] CASE MANAGEMon 04-03-2019 CASE MANAGEM HNO ID: [id number] Author: Jocelin MarquezRn) BISMARK Pagan Service: Care Management Author Type: Registered Nurse Type: Care Mgt Progress Note Filed: 04/03/2019 3:42 PM Note Text: CARE MANAGEMENT PROGRESS NOTE SERVICE DATE: 04/03/2019 SERVICE TIME: 3:35 PM LOS: 10 days Met with pt and spouse at bedside, would like a referral placed to [facility]. SIGNATURE: Jocelin Pagan RN PATIENT NAME: Mauri Quinones DATE: April 03, 2019 TIME: 3:35 PM PAGER/CONTACT #: [phone] [facility] CASE MANAGEM HNO ID: [id number] Author: Jocelin Guzman) BISMARK Pagan Service: Care Management Author Type: Registered Nurse Type: Care Mgt Progress Note Filed: 04/03/2019 12:08 PM Note Text: CARE MANAGEMENT PROGRESS NOTE SERVICE DATE: 04/03/2019 SERVICE TIME: 12:07 PM LOS: 10 days TC and left VM for Yun to inform her ESR is out network with their insuarance, will need a new choice. SIGNATURE: Jocelin Pagan RN PATIENT NAME: Mauri Quinones DATE: April 03, 2019 TIME: 12:07 PM PAGER/CONTACT #: [phone] [facility] CONSULTon 04-03-2019 CONSULT HNO ID: [id number] Author: Angel Weiner Service: Urology Author Type: Physician Type: Consults Filed: 04/03/2019 5:20 PM Note Text: Urology Inpatient Consultation 03/23/2019 HISTORY OF PRESENT ILLNESS: The patient is a 63 year old male not known to urology service who initially presents on 03/24 with ankylosing spondylitis and worsening neck pain. During his admission patient has had intermittent catheter placement and straight caths. Urology was consulted for this issue. Patient states he has had trouble voiding since the catheter was removed approximately 2 days ago. He voids small amounts and has required drainage with straight cath. He denies chest pain, sob, abdominal pain, n/v, diarrhea, flank pain, hematuria, or dysuria. He denies any lower extremity weakness or paresthesias. Patient denies any urologic history. PAST MEDICAL HISTORY: PAST MEDICAL HISTORY Diagnosis Date - GARRET (acute kidney injury) ([facility]) 03/24/2019 - Ankylosing spondylitis ([facility]) - CAD (coronary artery disease) - Cellulitis - Chronic combined systolic and diastolic CHF (congestive heart failure) ([facility]) 03/24/2019 - CKD (chronic kidney disease) stage 3, GFR 30-59 ml/min ([facility]) 03/24/2019 - Constipation - Diabetes ([facility]) - Gout - High phosphate levels 03/24/2019 - Hx of fracture multiple bones - Hyperkalemia 03/24/2019 - Hypoalbuminemia 03/24/2019 - Hyponatremia 03/24/2019 - Hypoxia 03/24/2019 - NSTEMI (non-ST elevated myocardial infarction) ([facility]) 03/12/2017 [facility] admit - Osteoarthritis PAST SURGICAL HISTORY: PAST SURGICAL HISTORY Procedure Laterality Date - CORONARY ARTERY BYPASS GRAFT 04/12/2017 x 3 - HIP SURGERY HX Right pin - KNEE ARTHROSCOPY Left x2 - KNEE SURGERY HX Right TKR, right, arthoscopy x3 - PAST SURGICAL HISTORY OF 09/07/2017 08/15/17 fx radius in 2 places; plate and screws.Plate and screws 09/07/17 [facility] - TOE SURGERY HX Right - TOTAL HIP REPLACEMENT Right ALLERGIES: ALLERGIES Allergen Reactions - Lyrica [Pregabalin] Swelling HOME MEDICATIONS: Medications Prior to Admission: atorvastatin (LIPITOR) 40 mg tablet Take 40 mg by mouth once daily. Disp: Rfl: [] cephALEXin (KEFLEX) 500 mg capsule Take 500 mg by mouth twice daily. Disp: Rfl: HYDROcodone-acetaminophen (NORCO) 5-325 mg per tablet Take 1 tablet by mouth every 6 hours as needed. Disp: Rfl: sodium polystyrene sulfonate, with sorbitol, (SPS) 15-20 gram/60 mL susp suspension Take 15 g by mouth once daily. X 5 days (started 03/22/19) Disp: Rfl: gabapentin (NEURONTIN) 600 mg tablet Take 1 tablet by mouth once daily for 30 days. (Patient taking differently: Take 300 mg by mouth once daily. ) Disp: 30 tablet Rfl: 0 insulin detemir U-100 (LEVEMIR FLEXTOUCH U-100 INSULN) 100 unit/mL (3 mL) inpn injection Inject 17 Units subcutaneously daily at bedtime. Disp: Rfl: doxazosin (CARDURA) 4 mg tablet Take 0.5 tablets by mouth twice daily. Disp: Rfl: 11 furosemide (LASIX) 40 mg tablet Take 1 tablet by mouth once daily. Disp: Rfl: Taking carvedilol (COREG) 25 mg tablet Take 25 mg by mouth twice daily with meals. Disp: Rfl: Taking MULTIVITAMIN/IRON/FOLIC ACID (DAILY MULTI ORAL) Take 2 Each by mouth once daily. Disp: Rfl: Taking aspirin, enteric coated (ASPIR-81) 81 mg EC tablet Take 1 tablet by mouth once daily. Disp: 90 tablet Rfl: 3 Not Taking latanoprost (XALATAN) 0.005 % ophthalmic solution Use 1 Drop in both eyes daily at bedtime. into affected eye(s). Disp: Rfl: 0 Taking FAMILY HISTORY: Family History Problem Relation Age of Onset - Arthritis Mother - Coronary Artery Disease Mother - Diabetes Mother - Heart Mother - Hypertension Mother - Alcohol/Drug Father - Arthritis Father - Heart Father - Hypertension Father Social History: Tobacco Use: Quit 04/17/2017. Types: Chew Alcohol Use: No (seldom) ROS: Constitutional: negative for chills and fevers HEENT: no blurry vision or eye redness Respiratory: negative for hemoptysis and shortness of breath Cardiovascular: negative for dyspnea and syncope Gastrointestinal: negative for jaundice, nausea and vomiting Genitourinary:negative for dysuria and hematuria, +retention Hematologic/lymphatic: negative for bleeding Integumentary: no new bruises or lesions Musculoskeletal:negative for muscle weakness, +neck pain Neurological: negative for coordination problems and seizures All other systems negative PHYSICAL EXAM: VITALS: 04/03/19 0223 04/03/19 0600 04/03/19 0618 04/03/19 0730 BP: 144/73 151/74 166/77 Pulse: 73 76 78 Resp: 16 18 Temp: 36.8 ?C (98.2 ?F) 36.9 ?C (98.4 ?F) TempSrc: Oral Oral SpO2: 97% 96% Weight: 92.1 kg (203 lb) Height: General: Alert, in no acute distress Head: Normocephalic, atraumatic Neck: supple, trachea is midline, no obvious masses Respiratory: normal effort, no audible wheezes Cardiovascular: regular pulse and no cyanosis Musculoskeletal: moving all extremities, normal tone Skin: warm and dry Psych: normal mood and affect, oriented Abdomen: soft, non distended, non tender, no organomegaly, no hernias : no cva or sp tenderness DATA: LABS: BMP: . Glucose (mg/dL) Date Value 04/03/2019 87 Potassium (mEq/L) Date Value 04/03/2019 4.7 Sodium (mEq/L) Date Value 04/03/2019 132 Chloride (mEq/L) Date Value 04/03/2019 99 CO2 (mEq/L) Date Value 04/03/2019 25 Creatinine (mg/dL) Date Value 04/03/2019 2.37 BUN (mg/dL) Date Value 04/03/2019 78 Anion Gap (no units) Date Value 04/03/2019 13 Calcium (mg/dL) Date Value 04/03/2019 8.1 CBC: Hemoglobin (g/dL) Date Value 08/08/2018 10.3 HGB (g/dL) Date Value 04/03/2019 9.1 Hematocrit (%) Date Value 04/03/2019 29.0 WBC (thou/cmm) Date Value 04/03/2019 13.38 Platelet Count (thou/cmm) Date Value 04/03/2019 349 Urinalysis: pH, Arterial Date Value Ref Range Status 04/13/2017 7.324 (L) 7.350 - 7.450 Final Specific [place], Ur Date Value Ref Range Status 03/23/2019 1.019 1.005 - 1.030 Final Glucose, Urine Date Value Ref Range Status 03/23/2019 500 (A) Negative mg/dL Final Bilirubin, Urine Date Value Ref Range Status 03/23/2019 NEGATIVE Negative Final Ketones, Urine Date Value Ref Range Status 03/23/2019 NEGATIVE Negative mg/dL Final Hemoglobin/Blood,Ur Date Value Ref Range Status 07/25/2018 Negative Negative Final Protein, Urine Date Value Ref Range Status 03/24/2019 473.4 (H) 0.0 - 11.9 mg/dL Final Urobilinogen, Urine Date Value Ref Range Status 03/23/2019 1.0 0.2 - 1.0 EU/dL Final Nitrites Date Value Ref Range Status 07/25/2018 Negative Negative Final Nitrites Urine Date Value Ref Range Status 03/23/2019 NEGATIVE Negative Final WBC, Urine Date Value Ref Range Status 03/23/2019 >900.0 (H) 0.0 - 5.0 /hpf Final Urine Culture: no growth (03/28) RADIOLOGY: CATHERINE 04/02: IMPRESSION: Small amount of debris is noted in the urinary bladder.?Otherwise unremarkable kidneys and urinary bladder. IMPRESSION: 63 year old male with recurrent AUR (400mL) and GARRET PLAN: - Butler currently out. Check PVR after next void. If patient does not urinate then check bladder scan every 6 hours - Cr increasing. CATHERINE negative for hydronephrosis. Nephrology is following - Most recent UCx negative - Continue doxazosin - Patient having multiple BMs daily Thank you for allowing me to participate in the care of your patient Jesus Romano MD 04/03/2019 8:30 AM I saw and evaluated the patient. Discussed with the resident and agree with resident's findings and plan as documented in the resident's note. Angel Weiner MD [facility] CONSULT PROGon 04-03-2019 CONSULT PROG HNO ID: [id number] Author: Kiera Gonzalez Service: Endocrinology Author Type: Physician Type: Consult Progress Note Filed: 04/03/2019 8:49 AM Note Text: ENDOCRINOLOGY CONSULT PROGRESS NOTE SERVICE DATE: 04/03/2019 SERVICE TIME: 8:35 AM Subjective INTERVAL HPI: Following for DM type 2. Adm with severe neck and B/L shoulder pain. Has GARRET. Notes and orders reviewed. Pt had erratic po intake, better now. Diet: DIET RENAL Activity: up in room with help, using walker Review of Systems: PAIN ASSESSMENT: still has neck and shoulder pain, better GENERAL: No weight loss, malaise or fevers. RESPIRATORY: Negative for cough, hemoptysis, wheezing, COPD, dyspnea or shortness of breath CARDIOVASCULAR: no CP, has edema GI: no nausea, had diarrhea overnight (had laxatives for 2 days) ENDOCRINE: Negative for cold or heat intolerance, polyuria or polydipsia. NEURO: no numbness/weakness extremities The remainder of the review of systems is negative. Current Facility-Administered Medications Medication Dose Route Frequency - doxazosin 2 mg tab(s) (CARDURA) 2 mg ORAL BID - carvedilol 25 mg tab(s) (COREG) 25 mg ORAL BID w MEALS - latanoprost 0.005 % 1 Drop (XALATAN) 1 Drop BOTH EYES AT BEDTIME - NaCl 0.9% 3-5 mL 3-5 mL INTRAVENOUS q 12 H - heparin 5,000 Units injection 5,000 Units SUBCUTANEOUS q 12 H - ondansetron 4 mg tab(s) (ZOFRAN) 4 mg ORAL q 6 H PRN Or - ondansetron (PF) 4 mg injection (ZOFRAN) 4 mg INTRAVENOUS q 6 H PRN - magnesium hydroxide 400 mg/5 mL 30 mL (MOM) 30 mL ORAL DAILY PRN - bisacodyl 10 mg suppository (DULCOLAX) 10 mg RECTAL DAILY PRN - dextrose 40 % 15 g 15 g ORAL PRN Or - glucagon 1 mg injection (GLUCAGEN) 1 mg INTRAMUSCULAR PRN Or - dextrose 50 % 12.5 g injection 12.5 g INTRAVENOUS PRN - NaCl 0.9% 3-5 mL 3-5 mL INTRAVENOUS q 12 H - aluminum-magnesium hydroxide-simethicone 200-200-20 mg/5 mL 30 mL (MAALOX,MYLANTA,MAG-AL PLUS) 30 mL ORAL DAILY PRN - docusate sodium 100 mg cap(s) (COLACE) 100 mg ORAL BID PRN - ipratropium-albuterol 3 mL nebulizer solution (DUONEB) 3 mL INHALATION q 4 H PRN - insulin lispro pen (rapid acting) (HumaLOG KWIKPEN) SUBCUTANEOUS w MEALS - calcium acetate 667 mg tab(s) (CALPHRON) 667 mg ORAL TID w MEALS - insulin detemir U-100 15 Units injection (long acting) (LEVEMIR) 15 Units SUBCUTANEOUS DAILY (8 AM) - atorvastatin 40 mg tab(s) (LIPITOR) 40 mg ORAL AT BEDTIME - aspirin 81 mg chewable tab(s) 81 mg ORAL DAILY - polyethylene glycol 3350 17 g packet (MIRALAX, GLYCOLAX) 17 g ORAL DAILY - gabapentin 200 mg cap(s) (NEURONTIN) 200 mg ORAL DAILY - insulin lispro 6 Units pen (rapid acting) (HumaLOG KWIKPEN) 6 Units SUBCUTANEOUS w MEALS - hydrALAZINE 50 mg tab(s) (APRESOLINE) 50 mg ORAL q 8 H - acetaminophen 650 mg tab(s) (TYLENOL) 650 mg ORAL q 6 H PRN - ampicillin-sulbactam 3 g in NaCl 0.9% 100 mL MB+/ADD-Tougaloo (UNASYN) 3 g INTRAVENOUS q 8 H - furosemide 40 mg tab(s) (LASIX) 40 mg ORAL DAILY Objective PHYSICAL EXAM: GENERAL: awake, no distress; hard of hearing (has hearing aid) SKIN: Skin color, texture, turgor normal. No rashes or lesions. OROPHARYNX: Lips, mucosa, and tongue normal. Teeth and gums normal. Oropharynx normal. LUNGS: Lungs clear to auscultation, Good diaphragmatic excursion CARDIAC: Normal S1 and S2; no rubs, murmurs, or gallops ABDOMEN: Abdomen soft, non-tender, BS normal, No masses or organomegaly EXTREMITIES: 1+ edema B/L LE, no clubbing or skin discoloration., No ulcers NEURO: Grossly normal cognition, motor function, and cranial nerves BP 166/77 Pulse 78 Temp (Src) 98.4 (Oral) Resp 18 Ht 5' 10 (1.78m) Wt 203 lb (92.1kg) SpO2 96% BMI 29.13 kg/(m2). O2 Therapy: Room Air DATA: Diagnostic tests reviewed for today's visit: Most recent labs and imaging results. Last 24 hr BS reviewed. Recent Labs 04/03/19 0632 04/03/19 0400 04/02/19 2023 04/02/19 1618 04/02/19 1052 04/02/19 0609 04/02/19 0131 04/01/19 0510 GLUC -- 87 -- -- -- -- 91 -- 105* GLUCOSEMETER 101* -- 100* 160* 87 104* -- < > -- < > = values in this interval not displayed. Assessment/Plan Type 2 diabetes mellitus, uncontrolled, without complication, with long-term current use of insulin ([facility]) POA: Yes Assessment AND Plan: 12-15 ears duration, on insulin for 5 years, Levemir 17 units qhs; off Metformin since 06/2018 due to CKD. A1c 10.4 (was 6.6 in 06/2018 before hip surgery) Checks BS q.o.d. at home, FBS 200-250's at home. BS 287 on adm, no Levemir given on 03/23 hs. Levemir resumed 10 units qam and Humalog 6 units tid started on 03/24 am. BS were high on 03/24; increased Levemir to 15 units qam and Humalog to 8 units tid with SSI on 03/25. BS better but occ <100, reduced Humalog to 6 units tid on 03/27. BS stable, cont Rx Levemir 15 units qam and Humalog 6 units tid (held if pt not eating). Will need Rx for Humalog when goes home. D/C plan for rehab noted. Neck/sholuder pain, hx ankylosing spondylitis; pain management seeing pt GARRET (acute kidney injury) ([facility]) POA: Yes Assessment AND Plan: creat up again, 2.37(2.1)(1.92)(1.81)(1.70 )(1.77)(1.86)(2.09)(2.33)( 2.47); baseline 1.54; per renal CKD (chronic kidney disease) stage 3, GFR 30-59 ml/min ([facility]) POA: Yes Assessment AND Plan: creat 1.54 in 07/2018 Arteriosclerotic heart disease (ASHD) POA: Yes Assessment AND Plan: hx Hypertension, essential POA: Yes Assessment AND Plan: per caprice UTI (urinary tract infection) POA: Unknown Assessment AND Plan: on A/B Chronic combined systolic and diastolic CHF (congestive heart failure) ([facility]) POA: Yes Assessment AND Plan: hx SIGNATURE: Kiera Gonzalez MD PATIENT NAME: Mauri Quinones DATE: April 03, 2019 TIME: 8:49 AM PAGER: [phone] Normal [facility] Hemogram/Diffon 04-03-2019 Abs Immature Grans 0.24 thou/cmm High 0.00-0.05 [facility] Comment on above: Performed By: #### U RIN2 #### [address] [address] Abs Neut (ANC) 10.22 thou/cmm High 1.78-5.38 [facility] Comment on above: Performed By: #### U RIN2 #### [place] [address] Abs. Baso 0.05 thou/cmm Normal 0.01-0.08 [facility] Comment on above: Performed By: #### U RIN2 #### [place] [address] Abs. Bucks 1.40 thou/cmm High 0.30-0.82 [facility] Comment on above: Performed By: #### U RIN2 #### [address] [address] Basophils/100 WBC (Bld) 0.4 % Normal [facility] Comment on above: Performed By: #### U RIN2 #### [address] [address] Eosinophils (Bld) [#/Vol] 0.45 thou/cmm Normal 0.04-0.54 [facility] Comment on above: Performed By: #### U RIN2 #### [address] [address] Eosinophils/100 WBC (Bld) 3.4 % Normal [facility] Comment on above: Performed By: #### U RIN2 #### [place] [address] Immature Grans 1.80 % Normal [facility] Comment on above: Performed By: #### U RIN2 #### [facility] [address] [place], [place] [address] Lymphocytes (Bld) [#/Vol] 1.00 thou/cmm Normal 0.84-2.85 [facility] Comment on above: Performed By: #### U RIN2 #### [facility] [address] [place], [place] [address] Lymphocytes/100 WBC (Bld) 7.5 % Normal [facility] Comment on above: Performed By: #### U RIN2 #### [facility] [address] [place], [place] [address] Monocytes/100 WBC (Bld) 10.5 % Normal [facility] Comment on above: Performed By: #### U RIN2 #### [facility] [address] [place] [address] Seg Neutrophil 76.4 % Normal [facility] Comment on above: Performed By: #### U RIN2 #### [facility] [address] [address] Erythrocyte distribution width (RBC) [Ratio] 13.6 % Normal 11.6-14.4 [facility] Comment on above: Performed By: #### U RIN2 #### [facility] [address] [address] Hematocrit (Bld) [Volume fraction] 29.0 % Low 40.1-51.0 [facility] Comment on above: Performed By: #### U RIN2 #### [facility] [address] [address] Hemoglobin (Bld) [Mass/Vol] 9.1 g/dL Low 13.7-17.5 [facility] Comment on above: Performed By: #### U RIN2 #### [facility] [address] [address] MCH (RBC) [Entitic mass] 29.4 pg Normal 25.7-32.2 [facility] Comment on above: Performed By: #### U RIN2 #### [facility] [address] [address] MCHC (RBC) [Mass/Vol] 31.4 % Low 32.3-36.5 [facility] Comment on above: Performed By: #### U RIN2 #### [facility] [address] [place] [address] MCV (RBC) [Entitic vol] 93.5 fL Normal 83.2-95.6 [facility] Comment on above: Performed By: #### U RIN2 #### [facility] [address] [place] [address] Platelet mean volume (Bld) [Entitic vol] 9.3 fL Normal 8.7-12.0 [facility] Comment on above: Performed By: #### U RIN2 #### [place] [address] Platelets (Bld) [#/Vol] 349 thou/cmm Normal 141-365 [facility] Comment on above: Performed By: #### U RIN2 #### [facility] [address] [place] [address] RBC (Bld) [#/Vol] 3.10 mil/cmm Low 4.63-6.08 [facility] Comment on above: Performed By: #### U RIN2 #### [facility] [address] [place] [address] RDW SD 46.3 fl High 36.1-45.8 [facility] Comment on above: Performed By: #### U RIN2 #### [place] [address] WBC (Bld) [#/Vol] 13.38 thou/cmm High 4.23-9.07 [facility] Comment on above: Performed By: #### U RIN2 #### [facility] [address] [address] PROGRESSon 04-03-2019 PROGRESS HNO ID: [id number] Author: Jesus (Res) MD Juan Antonio Service: Urology Author Type: Resident Type: Progress Notes Filed: 04/03/2019 6:18 PM Note Text: - Patient voiding spontaneously today - PVR after unrecorded void was 0mL - No indication for butler catheter at this time - Urology will sign off Jesus Romano MD Urology, PGY-2 April 03, 2019 6:18 PM Pager: [phone] [facility] PROGRESS HNO ID: [id number] Author: Bravo Lamb) Ervin Service: Nephrology Author Type: Physician Type: Progress Notes Filed: 04/03/2019 3:30 PM Note Text: CONSULT PROGRESS NOTE SERVICE TIME: 3:19 PM CONSULTING SERVICE: Nephrology Following for:ckd Subjective:no sob/cp no c/o today Current Facility-Administered Medications Medication Dose Route Frequency - doxazosin 2 mg tab(s) (CARDURA) 2 mg ORAL BID - carvedilol 25 mg tab(s) (COREG) 25 mg ORAL BID w MEALS - latanoprost 0.005 % 1 Drop (XALATAN) 1 Drop BOTH EYES AT BEDTIME - NaCl 0.9% 3-5 mL 3-5 mL INTRAVENOUS q 12 H - heparin 5,000 Units injection 5,000 Units SUBCUTANEOUS q 12 H - ondansetron 4 mg tab(s) (ZOFRAN) 4 mg ORAL q 6 H PRN Or - ondansetron (PF) 4 mg injection (ZOFRAN) 4 mg INTRAVENOUS q 6 H PRN - magnesium hydroxide 400 mg/5 mL 30 mL (MOM) 30 mL ORAL DAILY PRN - bisacodyl 10 mg suppository (DULCOLAX) 10 mg RECTAL DAILY PRN - dextrose 40 % 15 g 15 g ORAL PRN Or - glucagon 1 mg injection (GLUCAGEN) 1 mg INTRAMUSCULAR PRN Or - dextrose 50 % 12.5 g injection 12.5 g INTRAVENOUS PRN - NaCl 0.9% 3-5 mL 3-5 mL INTRAVENOUS q 12 H - aluminum-magnesium hydroxide-simethicone 200-200-20 mg/5 mL 30 mL (MAALOX,MYLANTA,MAG-AL PLUS) 30 mL ORAL DAILY PRN - docusate sodium 100 mg cap(s) (COLACE) 100 mg ORAL BID PRN - ipratropium-albuterol 3 mL nebulizer solution (DUONEB) 3 mL INHALATION q 4 H PRN - insulin lispro pen (rapid acting) (HumaLOG KWIKPEN) SUBCUTANEOUS w MEALS - calcium acetate 667 mg tab(s) (CALPHRON) 667 mg ORAL TID w MEALS - insulin detemir U-100 15 Units injection (long acting) (LEVEMIR) 15 Units SUBCUTANEOUS DAILY (8 AM) - atorvastatin 40 mg tab(s) (LIPITOR) 40 mg ORAL AT BEDTIME - aspirin 81 mg chewable tab(s) 81 mg ORAL DAILY - polyethylene glycol 3350 17 g packet (MIRALAX, GLYCOLAX) 17 g ORAL DAILY - gabapentin 200 mg cap(s) (NEURONTIN) 200 mg ORAL DAILY - insulin lispro 6 Units pen (rapid acting) (HumaLOG KWIKPEN) 6 Units SUBCUTANEOUS w MEALS - hydrALAZINE 50 mg tab(s) (APRESOLINE) 50 mg ORAL q 8 H - acetaminophen 650 mg tab(s) (TYLENOL) 650 mg ORAL q 6 H PRN - ampicillin-sulbactam 3 g in NaCl 0.9% 100 mL MB+/ADD-[place]oo (UNASYN) 3 g INTRAVENOUS q 8 H - furosemide 40 mg tab(s) (LASIX) 40 mg ORAL DAILY PHYSICAL EXAM: Physical Exam Performed: BP 166/77 Pulse 78 Temp (Src) 98.4 (Oral) Resp 18 Ht 5' 10 (1.78m) Wt 203 lb (92.1kg) SpO2 96% BMI 29.13 kg/(m2). O2 Therapy: Room Air BLOOD PRESSURE RANGE: Systolic (24hrs), Av , Min:143 , Max:181 ; Diastolic (24hrs), Av, Min:65, Max:88 GENERAL: well developed, no distress ENMT lips pink oral mucosa moist EYES sclerae white PERRL SKIN: warm dry No rashes or lesions LUNGS: Lungs clear to auscultation no wheezing no crackles, Good diaphragmatic excursion respirations are even and unlabored CARDIAC: S1 and S2; no rubs, murmurs, or gallops ABDOMEN: Abdomen soft, non-tender, BS present in all four quadrants EXTREMITIES: B/l LE edema, clubbing NEURO: Grossly normal cognition, motor function. Sensation grossly intact, Cranial nerves II-XII intact HEME no cervical or axillary lymphadenopathy, no petechiae DATA: Diagnostic tests reviewed for today's visit: Most recent labs and imaging results reviewed if applicable Labs: Recent Labs 04/03/19 0400 04/01/19 0510 WBC 13.38* 16.41* HB 9.1* 9.1* HCT 29.0* 29.0* MCV 93.5 96.0* PLT 349 348 Recent Labs 04/03/19 0400 04/02/19 0131 04/01/19 0510 NA 132* 136 134* K 4.7 5.4* 5.2* CO2 25 26 24 BUN 78* 81* 73* CREAT 2.37* 2.10* 1.92* CA 8.1* 7.8* 8.5 pH, Arterial Date Value Ref Range Status 04/13/2017 7.324 (L) 7.350 - 7.450 Final Specific [place], Ur Date Value Ref Range Status 03/23/2019 1.019 1.005 - 1.030 Final Glucose, Urine Date Value Ref Range Status 03/23/2019 500 (A) Negative mg/dL Final Bilirubin, Urine Date Value Ref Range Status 03/23/2019 NEGATIVE Negative Final Ketones, Urine Date Value Ref Range Status 03/23/2019 NEGATIVE Negative mg/dL Final Hemoglobin/Blood,Ur Date Value Ref Range Status 07/25/2018 Negative Negative Final Protein, Urine Date Value Ref Range Status 03/24/2019 473.4 (H) 0.0 - 11.9 mg/dL Final Urobilinogen, Urine Date Value Ref Range Status 03/23/2019 1.0 0.2 - 1.0 EU/dL Final Nitrites Date Value Ref Range Status 07/25/2018 Negative Negative Final Nitrites Urine Date Value Ref Range Status 03/23/2019 NEGATIVE Negative Final WBC, Urine Date Value Ref Range Status 03/23/2019 >900.0 (H) 0.0 - 5.0 /hpf Final Input / Output: 24 HR: Intake/Output Summary (Last 24 hours) at 04/03/2019 1519 Last data filed at 04/03/2019 1237 Gross per 24 hour Intake 1200 ml Output 250 ml Net 950 ml IV Intake: Butler: GARRET prerenal CKD 3 likely DN baseline in 2018 1.2-1.5 outlier 2.39 in 2018 Edema LE 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 with DN Hyperkalemia AUR HTN Hyperphosphatemia Appreciate urology input Hold ACEI or ARB till K better K 4.7 after kayexalate monitor Scr 2.37 hold lasix for now Veltassa not available Will benefit from veltassa as outpatient if persistent hyperkalemia Can use veltassa 8.4 grams on discharge with close monitoring of K and Mg Low K renal diet Will need bmp 2-3 days after discharge in rehab reviewed renal US Ordered spep upep and light chains and 24 hour protein collection Further w/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 SIGNATURE: Bravo Mueller MD PATIENT NAME: Mauri Quinones PAGER: [phone] Normal [facility] PROGRESS HNO ID: [id number] Author: Jose Marcial Service: Hospital Medicine Author Type: Physician Type: Progress Notes Filed: 04/03/2019 4:50 PM Note Text: DEPARTMENT OF HOSPITAL MEDICINE PROGRESS NOTE SERVICE DATE: 04/03/2019 SERVICE TIME: 11:46 AM Hospital Medicine/Primary Attending: Jose Marcial, DO NIGHT AND WEEKEND COVERAGE: From 7am - 7pm, please call [employer] After 7pm, please call cross cover pager #[phone] Subjective INTERVAL HPI: Pt seen and examined. No new complaints. Neck/shoulder pain is stable. Per nursing Post void residual was 0. MEDICATIONS: Reviewed Objective PHYSICAL EXAM: BP 151/68 Pulse 69 Temp (Src) 97.9 (Oral) Resp 18 Ht 5' 10 (1.78m) Wt 203 lb (92.1kg) SpO2 94% BMI 29.13 kg/(m2). O2 Therapy: Room Air Physical Exam Performed General: Alert, NAD, cooperative CV: RRR, +[id number], no murmur Resp: CTA b/l, no wheeze Abd: soft, NTND, +Bowel sounds Ext: no LE edema. Lines, Drains, and Airways Line Peripheral 04/01/19 1324 Right Antecubital 22 Gauge 2 days Reviewed lines, drains, AND airways. Need to be continued . DATA: Diagnostic tests reviewed for today's visit: Most recent labs and imaging results. Assessment/Plan 1. UTI - on abx per ID. Leukocytosis trending down. 2. Neck pain w/hx of ankylosing spondylitis - Improved 3. GARRET on CKD3 - mgmt per nephrology. Lasix held. Rule out urinary retention. 4. Hyperkalemia - resolved s/p Kayexalate. Outpt Veltessa. 5. DM II - Levemir 15 Units qAM, lispro 6 units TID w/SSI coverage Medication and Non-Pharmacologic VTE Prophylaxis/Anticoagulants Anticoagulant AND Antiplatelet Medications (From admission, onward) Start Dose Route Frequency Ordered Stop 03/25/19 0900 aspirin 81 mg chewable tab(s) 81 mg ORAL DAILY 03/25/19 0816 -- 03/24/19 0300 heparin 5,000 Units injection (Medical At Risk ) 5,000 Units SUBCUTANEOUS EVERY 12 HOURS 03/24/19 0232 -- 03/24/19 0945 activity - mobilize patient (ia,oh) 03/24/19 0245 pneumatic compression stockings (ia,me) 03/24/19 0245 activity - mobilize patient (ia,me) VTE Prophylaxis: VTE prophylaxis appropriate Disposition: Acute Rehab. Plan of care discussed with: Patient, Care Management and RN SIGNATURE: Jose Marcial DO PATIENT NAME: Mauri Quinones DATE: April 03, 2019 TIME: 4:46 PM PAGER/CONTACT #: Maureen Gonzalez [facility] THERAPY NTon 04-03-2019 THERAPY NT HNO ID: [id number] Author: Paulette Barrera/Savanna Lion Service: Occupational Therapy Author Type: Occupational Therapist Type: Therapy (PT/OT/Speech/Resp) Filed: 04/03/2019 10:18 AM Note Text: Occupational Therapy Evaluation SERVICE DATE: 04/03/2019 SERVICE TIME: 0950 to 1010 ROOM: [id number] Recommended Discharge Disposition: Acute Rehab Recommended Discharge Disposition Comments: Rec changed from home to acute rehab due to impaired ADLs and functional mobility (mod assist for sit-stand transfer and max A for LB ADLs). Justification For Post Acute Needs: Anticipate patient will tolerate 3 hours of daily therapy at the time of admission to post-acute setting;Good family support;Good premorbid functional status;Living the community premorbidly;Motivated;Will ing to participate Anticipated Discharge Needs: (NA) Physical Assist at Home for: (NA) OT Recommendations to Nursing: ADL?s in chair;Bedside Commode for Toileting;OOB for meals;Transfer to Chair;With assist of 2 people Equipment: Wheeled Walker OT 6 Clicks Score: 15 Precautions/Activity Restrictions: Fall Risk Isolation Type: None ASSESSMENT: Patient continues to demonstrate decreases strength and activity tolerance limiting ability to safely care for self. Requires intensive, skilled OT to maximize independence with ADLs/return to baseline function. Patient Disposition at Start of Session: Sitting on Edge of Bed;Call Emmanuel in Reach Patient Disposition at End of Session: OOB in Chair;Call Emmaneul in Reach Tolerance Limited By Fatigue Occupational Therapy Problem List: Safety Deficits;Impaired Self Care;Decreased Activity Tolerance;Education Deficit Patient /Caregiver Goals: Go Home;Care For Self Goals for Plan of Care: Lower Body Bathing with: Modified Independent Lower Body Dressing with: Modified Independent Toilet Hygiene with: Modified Independent Toilet Transfer with: Modified Independent Demonstrate Positive Coping Strategies with: Independent(pain management strategies) Demonstrate Competence With Education with: Verbal Cues Only(safety/judgment with ADLs) Transfer: Bed mobility with modified independence Progress Toward Goals: Progressing as expected Due To: Had an acute change in function since initial eval, was max A x2 and significant confusion 2/2 infection. Pt's mentation is now back to baseline but patient continues to require increased assist for mobility (mod assist for sit-stand transfer) and max A for LB ADLs. Rec is changed from home to acute rehab Rehab Potential: Good PLAN: Treatment Frequency (times per week): 5(1-5x/week) Current admission Treatment Interventions: Education;Self Care / Home Management Plan of Care developed with: Patient TREATMENT INTERVENTIONS: Therapy Diagnosis: Reduced mobility-other;Decreased activities of daily living (ADL) Interventions Provided: Self Usp Management (99494) Self Usp Management (23633) Treatment Minutes: 20 1 unit Skilled Intervention(s): Cues for sequencing in hygiene tasks ; completed sit to stand transfer from edge of bed with moderate assist and verbal cues for hand placement with wheeled walker. Tolerated dynamic mobility to bathroom. Verbal cues for safety with wheeled walker to avoid objects in room. Instructed on hand placement and sequencing for stand to sit with wheeled walker. Pt completed transfer to commode. +bowel and bladder movement while on commode (RN later notified). Pt given time attempt sandy care. Maximal assist for rear sandy care following patient attempts. Moderate assist sit to stand from commode. Pt returned to bedside chair following session, set up with call light prior to room exit. Total Timed Code Treatment Minutes: 20 Total Treatment Time (minutes): 20 SUBJECTIVE: Current Hospital Course: Chart reviewed and no significant medical updates relevant to therapy were noted Reason for Occupational Therapy Consult: UTI, bilat shoulder/neck pain Relevant Past Medical History: CAD, ankylosing spondylitis, gout Patient Report: Pt up in bed, agreeable to OT session. IDx2. Receptive to information provided, I just want to go home. Home Environment Patient Lives With: Family( and dtr) Assistance Available: 24 Hour Entry To Home: Stairs;With Rail Number Of Stairs Into Home: 1 Number Of Stairs To Bed/Bath: 0 Laundry: basement- pt can do it Equipment Owned: Wheeled Walker;Cane Prior Functional Level: Within Functional Limits Prior Functional Level Comments: independent, drives, OBJECTIVE: Cognition/Communication Deficits Responsiveness: Alert Follows Commands: 3-step Commands Cueing to Follow Commands: Minimum Attention Deficits: Distractible Executive Function Deficits: Judgement;Insight to Deficits;Problem Solving Judgement Deficit: Minimal impairment Insight to Deficits: Minimal impairment Problem Solving Deficit: Minimal impairment CURRENT FUNCTIONAL STATUS: Current Activities of Daily Living Assist Level Feeding Set Up Grooming Moderate Assistance Bathing Upper Body Moderate Assistance Bathing Lower Body Maximal Assistance Dressing Upper Body Minimal Assistance Dressing Lower Body Maximal Assistance Toileting Maximal Assistance Functional Mobility Assist Level Rolling Minimal Assistance(attempted log roll technique) Supine to Sit Contact Guard Assistance Sit to Supine Contact Guard Assistance Scooting Sit to Stand Moderate Assistance Stand to Sit Moderate Assistance Bed to Chair Toilet/Commode Moderate Assistance Functional Mobility Minimal Assistance Wheeled Walker Range of Motion: ROM Limitation Comments ROM Limitation Comments: WFL Strength: Strength Limitation Comments Strength Limitation Comments: WFL, could be maximized Balance: Dynamic Standing Dynamic Standing Balance: Contact Guard Assistance Activity Tolerance: Sitting Activity;Standing Activity Sitting Activity: LB dressing, toileting Sitting Activity Tolerance (in minutes): 5 Standing Activity: mobility to bathroom Standing Activity Tolerance (in minutes): 5 Please see discipline specific clinical documentation flowsheet for complete details for this therapy evaluation/treatment. SIGNATURE: SLIM Singh/Farhana PATIENT NAME: Mauri Quinones DATE: April 03, 2019 TIME: 10:14 AM Normal [facility] THERAPY NT HNO ID: [id number] Author: Vinny MarquezPt) JD Benitez Service: Physical Therapy Author Type: Physical Therapist Type: Therapy (PT/OT/Speech/Resp) Filed: 04/03/2019 10:18 AM Note Text: Physical Therapy Treatment SERVICE DATE: 04/03/2019 SERVICE TIME: 933 to 956 ROOM: [id number] Recommended Discharge Disposition: Acute Rehab Recommended Discharge Disposition Comments: pt with siginificant change in status--needing max Ax2 to achieve upright at EOB and max A to sit EOB Justification For Post Acute Needs: Medically complex;Anticipate patient will tolerate 3 hours of daily therapy at the time of admission to post-acute setting Anticipated Discharge Needs: (NA) Physical Assist at Home for: (NA) PT Recommendations to Nursing: Ambulate with device;To bathroom;Transfer to/from chair;With assist of 1 person Device: Wheeled Walker PT 6 Clicks Score: 15 Precautions/Activity Restrictions: Fall Risk Isolation Type: None ASSESSMENT : Pt progressing toward goals. Today alert and oriented x4, requiring min A for supine to sit, then participated in seated LE strengthening activities at edge of bed with cues. Able to advance OOB with mod A, then executed gait training 100 ft with min A using wheeled walker. Pt continues to demonstrate decreased weight bearing and stance time on R with discontinuous steps, and maintains knee flexion during stance. Continue to recommend acute rehab to address deficits and improve independence with mobility. Continue to progress toward goals under current plan of care. Patient Disposition at Start of Session: Supine in Bed;Call Emmanuel in Reach;Bed Alarm Patient Disposition at End of Session: Other: See Comment(toileting with OT) Tolerated Full Session Without limitations Physical Therapy Problem List: Pain;Functional Mobility Impairment;Decreased Range Of Motion Patient /Caregiver Goals: Walk;Go Home Goals for Plan of Care: Able to perform HEP with: (NA) Transfer supine to/from sit with: Contact Guard Assistance Transfer sit to/from stand with: Contact Guard Assistance Ambulate with: Contact Guard Assistance Distance: 40x2 Device: Wheeled Walker Transfer: stand pivot min A Goal: 2x10 reps bilat LE AROM exercises Progress Toward Goals: Progressing as expected Due To: acuity; change in mental status Rehab Potential: Good PLAN: Treatment Frequency (times per week): 5(1-5) Current admission Treatment Interventions: Education;Joint Mobility;Strengthening;Fun ctional Mobility Training;Balance Training Plan of Care developed with: Patient;Family TREATMENT INTERVENTIONS: Interventions Provided: Therapeutic Exercise (03004);Gait Training (69040);Therapeutic Activity (98162) Therapeutic Exercise (50469) Treatment Minutes: 10 1 unit Skilled Intervention(s): Instruction in therapeutic exercise hip flexion/marching, long arc quads, ankle pumps, hip abduction/adduction Verbal and tactile cuing provided with demonstration for technique and appropriate muscle activation. Positive encouragement and cues for full AROM 2x10 reps each exercise Therapeutic Activity (67625) Treatment Minutes: 5 0 units Skilled Intervention(s): Instructed patient in log roll technique Instructed patient in supine to and from sit pushing with upper extremities to sit up Instruction in sit to and from stand technique with proper hand placement and body positioning at edge of bed/chair Education with appropriate use of wheeled walker Gait Training (64434) Treatment Minutes: 8 1 unit Skilled Intervention(s): Instruction in sit to stand technique with proper hand placement and body positioning at edge of bed/chair, Instruction in stand to sit technique with LE's touching chair/bed and reaching back for surface, Instruction in sequencing, gait pattern, Instruction in correction of gait deviations, Facilitation of improved upright posture with verbal and tactile cues for scapular retraction, forward gaze and Instruction in use of equipment, cues for sequence and pattern. Verbal cues for more continuous steps and walker movement, as well as more equalized stance time. Total Timed Code Treatment Minutes: 23 Total Treatment Time (minutes): 25 SUBJECTIVE: Current Hospital Course: Chart reviewed and no significant medical updates relevant to therapy were noted Reason for Physical Therapy Consult : eval Relevant Past Medical History: CAD, ankylosing spondylitis, gout Patient Report: Pt pleasant and agreeable to therapy, motivated to get out of bed. Pleased with his ability to walk in the hallways yesterday. Home Environment Patient Lives With: Family( and dtr) Assistance Available: 24 Hour Entry To Home: Stairs;With Rail Number Of Stairs Into Home: 1 Number Of Stairs To Bed/Bath: 0 Laundry: basement- pt can do it Equipment Owned: Wheeled Walker;Cane Prior Functional Level: Within Functional Limits Prior Functional Level Comments: independent, drives, OBJECTIVE: CURRENT FUNCTIONAL STATUS: Current Functional Mobility Assist Level Additional Information Rolling Minimal Assistance Supine to Sit Minimal Assistance(HOB elevated) Sit to Supine Scooting Sit to Stand Moderate Assistance Stand to Sit Moderate Assistance Bed to Chair Toilet/Commode Gait Minimal Assistance Gait Device: Wheeled Walker Gait Distance (feet): 100 Stairs Curb Step Car Transfer Gait Deviations Right Lower Extremity: Weight bearing decreased;Stance time decreased;Other: See comment(knee remains flexed during stance) General Gait Deviations: Antalgic gait pattern;Gaby decreased;Step length decreased;Flexed trunk posture -[facility]: 7: Walk 25 feet or more Please see discipline specific clinical documentation flowsheet for complete details for this therapy evaluation/treatment. SIGNATURE: Vinny Benitez PT PATIENT NAME: Mauri Quinones DATE: April 03, 2019 TIME: 10:13 AM Normal [facility] Basic Panelon 04-02-2019 Creatinine [Mass/Vol] 2.10 mg/dL High 0.67-1.17 [facility] Comment on above: Performed By: #### E RTRP #### [place] [address] Anion gap [Moles/Vol] 13 mmol/L Normal 8-16 [facility] Comment on above: Performed By: #### E RTRP #### [address] [address] Calcium [Mass/Vol] 7.8 mg/dL Low 8.5-10.1 [facility] Comment on above: Performed By: #### E RTRP #### [address] [address] CO2 [Moles/Vol] 26 mmol/L Normal 21-32 [facility] Comment on above: Performed By: #### E RTRP #### [facility] [address] [place], [place] [address] Glucose [Mass/Vol] 91 mg/dL Normal 70-99 [facility] Comment on above: Performed By: #### E RTRP #### [address] [address] Urea nitrogen [Mass/Vol] 81 mg/dL High 7-18 [facility] Comment on above: Performed By: #### E RTRP #### [address] [place], [place] [address] Chloride [Moles/Vol] 102 mmol/L Normal 98-107 [facility] Comment on above: Performed By: #### E RTRP #### [facility] [address] [place], [place] [address] Potassium [Moles/Vol] 5.4 mmol/L High 3.5-5.1 [facility] Comment on above: Performed By: #### E RTRP #### [facility] [address] [place], [place] [address] Sodium [Moles/Vol] 136 mmol/L Normal 136-145 [facility] Comment on above: Performed By: #### E RTRP #### [facility] [address] [place], [place] [address] CASE MANAGEMon 04-02-2019 CASE MANAGEM HNO ID: [id number] Author: Jocelin MarquezRn) BISMARK Pagan Service: Care Management Author Type: Registered Nurse Type: Care Mgt Progress Note Filed: 04/02/2019 3:12 PM Note Text: CARE MANAGEMENT PROGRESS NOTE SERVICE DATE: 04/02/2019 SERVICE TIME: 2:57 PM LOS: 9 days Met with , discussed denial by [facility] and discussed Justino Esquivel. SHe would like referral placed to [facility] for acute rehab. SIGNATURE: Jocelin Pagan RN PATIENT NAME: Mauri Quinones DATE: April 02, 2019 TIME: 2:57 PM PAGER/CONTACT #: [phone] [facility] CASE MANAGEM HNO ID: [id number] Author: Jocelin Pagan RN Service: Care Management Author Type: Registered Nurse Type: Care Mgt Progress Note Filed: 04/02/2019 9:59 AM Note Text: CARE MANAGEMENT PROGRESS NOTE SERVICE DATE: 04/02/2019 SERVICE TIME: 9:57 AM LOS: 9 days FREEDOM OF CHOICE GIVEN: The patient and/or family has been given the Provider List: Yes Provider List: [facility] Met with pt at bedside, discussed denial by [facility], provided SNF choice list to pt waiting for to come in and will discuss options. SIGNATURE: Jocelin Pagan RN PATIENT NAME: Mauri Quinones DATE: April 02, 2019 TIME: 9:57 AM PAGER/CONTACT #: [phone] [facility] CONSULT PROGon 04-02-2019 CONSULT PROG HNO ID: [id number] Author: Mohsen Castellanos Service: Infectious Disease Author Type: Physician Type: Consult Progress Note Filed: 04/02/2019 9:04 PM Note Text: 04/02/2019 5:59 PM Infectious Disease More alert, up in chair. Required straight cath x 3 overnight per RN report, but voiding today with minimal residual volume by bladder scan. Less cough. No abdominal, bladder, or flank pain. BP 164/76 Pulse 66 Temp 36.7 ?C (98.1 ?F) (Oral) Resp 16 Ht 177.8 cm (5' 10) Wt 82.5 kg (181 lb 14.1 oz) SpO2 96% BMI 26.10 kg/m? Abdomen is nontender. Recent Labs 04/02/19 0131 04/01/19 0510 03/31/19 0314 WBC -- 16.41* -- HB -- 9.1* -- HCT -- 29.0* -- PLT -- 348 -- NEUTNUM -- 12.96* -- CREAT 2.10* 1.92* 1.81* Imp: UTI Possible pneumonia LLL GARRET/CKD- creat rising Persistent leukocytosis. DM-2 CHF Rec: Will continue unasyn. Repeat cbc in am. Mohsen Castellanos MD [facility] CONSULT PROG HNO ID: [id number] Author: Kiera Gonzalez Service: Endocrinology Author Type: Physician Type: Consult Progress Note Filed: 04/02/2019 8:57 AM Note Text: ENDOCRINOLOGY CONSULT PROGRESS NOTE SERVICE DATE: 04/02/2019 SERVICE TIME: 8:45 AM Subjective INTERVAL HPI: Following for DM type 2. Adm with severe neck and B/L shoulder pain. Has GARRET. Notes and orders reviewed. Pt had erratic po intake, better now. Diet: DIET HEART HEALTHY Activity: up in room with help, using walker Review of Systems: PAIN ASSESSMENT: still has neck and shoulder pain, better GENERAL: No weight loss, malaise or fevers. RESPIRATORY: Negative for cough, hemoptysis, wheezing, COPD, dyspnea or shortness of breath CARDIOVASCULAR: no CP, has edema GI: No nausea, vomiting, or diarrhea ENDOCRINE: Negative for cold or heat intolerance, polyuria or polydipsia. NEURO: no numbness/weakness extremities The remainder of the review of systems is negative. Current Facility-Administered Medications Medication Dose Route Frequency - doxazosin 2 mg tab(s) (CARDURA) 2 mg ORAL BID - carvedilol 25 mg tab(s) (COREG) 25 mg ORAL BID w MEALS - latanoprost 0.005 % 1 Drop (XALATAN) 1 Drop BOTH EYES AT BEDTIME - NaCl 0.9% 3-5 mL 3-5 mL INTRAVENOUS q 12 H - heparin 5,000 Units injection 5,000 Units SUBCUTANEOUS q 12 H - ondansetron 4 mg tab(s) (ZOFRAN) 4 mg ORAL q 6 H PRN Or - ondansetron (PF) 4 mg injection (ZOFRAN) 4 mg INTRAVENOUS q 6 H PRN - magnesium hydroxide 400 mg/5 mL 30 mL (MOM) 30 mL ORAL DAILY PRN - bisacodyl 10 mg suppository (DULCOLAX) 10 mg RECTAL DAILY PRN - dextrose 40 % 15 g 15 g ORAL PRN Or - glucagon 1 mg injection (GLUCAGEN) 1 mg INTRAMUSCULAR PRN Or - dextrose 50 % 12.5 g injection 12.5 g INTRAVENOUS PRN - NaCl 0.9% 3-5 mL 3-5 mL INTRAVENOUS q 12 H - aluminum-magnesium hydroxide-simethicone 200-200-20 mg/5 mL 30 mL (MAALOX,MYLANTA,MAG-AL PLUS) 30 mL ORAL DAILY PRN - docusate sodium 100 mg cap(s) (COLACE) 100 mg ORAL BID PRN - ipratropium-albuterol 3 mL nebulizer solution (DUONEB) 3 mL INHALATION q 4 H PRN - insulin lispro pen (rapid acting) (HumaLOG KWIKPEN) SUBCUTANEOUS w MEALS - calcium acetate 667 mg tab(s) (CALPHRON) 667 mg ORAL TID w MEALS - insulin detemir U-100 15 Units injection (long acting) (LEVEMIR) 15 Units SUBCUTANEOUS DAILY (8 AM) - atorvastatin 40 mg tab(s) (LIPITOR) 40 mg ORAL AT BEDTIME - aspirin 81 mg chewable tab(s) 81 mg ORAL DAILY - polyethylene glycol 3350 17 g packet (MIRALAX, GLYCOLAX) 17 g ORAL DAILY - gabapentin 200 mg cap(s) (NEURONTIN) 200 mg ORAL DAILY - insulin lispro 6 Units pen (rapid acting) (HumaLOG KWIKPEN) 6 Units SUBCUTANEOUS w MEALS - furosemide 40 mg tab(s) (LASIX) 40 mg ORAL BID 9a/5p - hydrALAZINE 50 mg tab(s) (APRESOLINE) 50 mg ORAL q 8 H - acetaminophen 650 mg tab(s) (TYLENOL) 650 mg ORAL q 6 H PRN - ampicillin-sulbactam 3 g in NaCl 0.9% 100 mL MB+/ADD-[place] (UNASYN) 3 g INTRAVENOUS q 8 H Objective PHYSICAL EXAM: GENERAL: awake, no distress; has a cervical collar; hard of hearing (has hearing aid) SKIN: Skin color, texture, turgor normal. No rashes or lesions. OROPHARYNX: Lips, mucosa, and tongue normal. Teeth and gums normal. Oropharynx normal. LUNGS: Lungs clear to auscultation, Good diaphragmatic excursion CARDIAC: Normal S1 and S2; no rubs, murmurs, or gallops ABDOMEN: Abdomen soft, non-tender, BS normal, No masses or organomegaly EXTREMITIES: 1+ edema B/L LE, no clubbing or skin discoloration., No ulcers NEURO: Grossly normal cognition, motor function, and cranial nerves BP 145/79 Pulse 73 Temp (Src) 98.2 (Oral) Resp 17 Ht 5' 10 (1.78m) Wt 181 lb 14.1 oz (82.5kg) SpO2 93% BMI 26.10 kg/(m2). O2 Therapy: Room Air DATA: Diagnostic tests reviewed for today's visit: Most recent labs and imaging results. Last 24 hr BS reviewed. Recent Labs 04/02/19 0609 04/02/19 0131 04/01/19 2040 04/01/19 1540 04/01/19 1038 04/01/19 0618 04/01/19 0510 03/31/19 0314 GLUC -- 91 -- -- -- -- 105* -- 101* GLUCOSEMETER 104* -- 157* 125* 137* 111* -- < > -- < > = values in this interval not displayed. Assessment/Plan Type 2 diabetes mellitus, uncontrolled, without complication, with long-term current use of insulin (HCC) POA: Yes Assessment AND Plan: 12-15 ears duration, on insulin for 5 years, Levemir 17 units qhs; off Metformin since 06/2018 due to CKD. A1c 10.4 (was 6.6 in 06/2018 before hip surgery) Checks BS q.o.d. at home, FBS 200-250's at home. BS 287 on adm, no Levemir given on 03/23 hs. Levemir resumed 10 units qam and Humalog 6 units tid started on 03/24 am. BS were high on 03/24; increased Levemir to 15 units qam and Humalog to 8 units tid with SSI on 03/25. BS better but occ <100, reduced Humalog to 6 units tid on 03/27. BS stable, cont Rx Levemir 15 units qam and Humalog 6 units tid (held if pt not eating). Will need Rx for Humalog when goes home. D/C plan for rehab noted. Neck/sholuder pain, hx ankylosing spondylitis; pain management seeing pt GARRET (acute kidney injury) ([facility]) POA: Yes Assessment AND Plan: creat 2.1(1.92)(1.81)(1.70)(1.77 )(1.86)(2.09)(2.33)(2.47); baseline 1.54; per renal CKD (chronic kidney disease) stage 3, GFR 30-59 ml/min ([facility]) POA: Yes Assessment AND Plan: creat 1.54 in 07/2018 Arteriosclerotic heart disease (ASHD) POA: Yes Assessment AND Plan: hx Hypertension, essential POA: Yes Assessment AND Plan: per caprice UTI (urinary tract infection) POA: Unknown Assessment AND Plan: on A/B Chronic combined systolic and diastolic CHF (congestive heart failure) ([facility]) POA: Yes Assessment AND Plan: hx SIGNATURE: Kiera Gonzalez MD PATIENT NAME: Mauri Quinones DATE: April 02, 2019 TIME: 8:57 AM PAGER: [phone] Normal [facility] NURSING PROGon 04-02-2019 NURSING PROG HNO ID: [id number] Author: Shaye (Rn) BISMARK Petty Service: ? Author Type: Registered Nurse Type: Nursing Progress Note Filed: 04/02/2019 6:34 AM Note Text: This RN at bedside to straight cath pt. RN explained procedure to pt and he is agreeable. 14F straight cath used with sterile technique to get out 450cc clear yellow urine. Pt tolerated well. [facility] NURSING PROG HNO ID: [id number] Author: Fallon Chaney RN Service: Nursing Author Type: Registered Nurse Type: Nursing Progress Note Filed: 04/02/2019 6:27 AM Note Text: Nursing Progress Note Patient Name: Mauri Quinones Patient Location: [id number] Dr. Briones ordered another straight cath for the pt. The pt had an output of 450. This RN will continue to monitor. This note was completed by: Fallon Chaney RN [facility] NURSING PROG HNO ID: [id number] Author: Fallon Chaney RN Service: Nursing Author Type: Registered Nurse Type: Nursing Progress Note Filed: 04/02/2019 6:05 AM Note Text: Nursing Progress Note Patient Name: Mauri Quinones Patient Location: [id number] Pt has still not voided since DC of butler. Pt was bladder scanned and 400 was detected. Paged sound for further instruction. Will continue to monitor. This note was completed by: Fallon Chaney RN [facility] NURSING PROG HNO ID: [id number] Author: Fallon Chaney RN Service: Nursing Author Type: Registered Nurse Type: Nursing Progress Note Filed: 04/01/2019 10:54 PM Note Text: Nursing Progress Note Patient Name: Mauri Quinones Patient Location: [id number] Lydia from sound ordered a one time straight cath. We removed 325 from the pt. Will rescan the pt at 530 am. Will continue to monitor. This note was completed by: Fallon Chaney RN [facility] NURSING PROG HNO ID: [id number] Author: Fallon Chaney RN Service: Nursing Author Type: Registered Nurse Type: Nursing Progress Note Filed: 04/01/2019 10:11 PM Note Text: Nursing Progress Note Patient Name: Mauri Quinones Patient Location: [id number] Pt was bladder scanned and showed a volume of 332. Paged Sound to notify. Will continue to monitor. This note was completed by: Fallon Chaney RN [facility] PLAN OF CAREon 04-02-2019 PLAN OF CARE HNO ID: [id number] Author: Michelle Zayas (Lead Designer) Service: Pharmacy Author Type: ? Type: Plan of Care Filed: 04/02/2019 11:00 AM Note Text: TITLE SPECIALIST BEDSIDE DELIVERY SURVEY 1. Patient to use [facility] Bedside Delivery - N/A Insurance Information as follows: 2. Insurance card on file - N/A 3. Credit card for payment - N/A Pt DC to SNF/Acute Rehab/Inpatient Facility therefore not eligible for Pharmacy Bedside Delivery service. Normal [facility] PROGRESSon 04-02-2019 PROGRESS HNO ID: [id number] Author: Jose Marcial Service: Hospital Medicine Author Type: Physician Type: Progress Notes Filed: 04/02/2019 6:36 PM Note Text: DEPARTMENT OF HOSPITAL MEDICINE PROGRESS NOTE SERVICE DATE: 04/02/2019 SERVICE TIME: 6:17 PM Hospital Medicine/Primary Attending: Jose Marcial, DO NIGHT AND WEEKEND COVERAGE: From 7am - 7pm, please call [facility] After 7pm, please call cross cover pager #[phone] Subjective INTERVAL HPI: Pt seen and examined. No new complaints MEDICATIONS: Reviewed Objective PHYSICAL EXAM: BP 116/51 Pulse 66 Temp (Src) 98.2 (Oral) Resp 16 Ht 5' 10 (1.78m) Wt 181 lb 14.1 oz (82.5kg) SpO2 94% BMI 26.10 kg/(m2). O2 Therapy: Room Air Physical Exam Performed General: Alert, NAD, cooperative CV: RRR, +[id number], no murmur Resp: CTA b/l, no wheeze Abd: soft, NTND, +Bowel sounds Ext: no LE edema. Lines, Drains, and Airways Line Peripheral 04/01/19 1324 Right Antecubital 22 Gauge 1 day Reviewed lines, drains, AND airways. Need to be continued . DATA: Diagnostic tests reviewed for today's visit: Most recent labs and imaging results. Assessment/Plan 1. UTI - on abx per ID 2. Neck pain w/hx of ankylosing spondylitis - Improved 3. GARRET on CKD3 - mgmt per nephrology 4. Hyperkalemia - Kayexelatex1. Monitor 5. DM II - Levemir 15 Units qAM, lispro 6 units TID w/SSi coverage. Endo following appreciate recs. Medication and Non-Pharmacologic VTE Prophylaxis/Anticoagulants Anticoagulant AND Antiplatelet Medications (From admission, onward) Start Dose Route Frequency Ordered Stop 03/25/19 0900 aspirin 81 mg chewable tab(s) 81 mg ORAL DAILY 03/25/19 0816 -- 03/24/19 0300 heparin 5,000 Units injection (Medical At Risk ) 5,000 Units SUBCUTANEOUS EVERY 12 HOURS 03/24/19 0232 -- 03/24/19 0945 activity - mobilize patient (ia,me) 03/24/19 0245 pneumatic compression stockings (ia,me) 03/24/19 0245 activity - mobilize patient ([place]) VTE Prophylaxis: VTE prophylaxis appropriate Disposition: Acute Rehab Plan of care discussed with: Patient SIGNATURE: Jose Marcial DO PATIENT NAME: Mauri Quinones DATE: April 02, 2019 TIME: 6:17 PM PAGER/CONTACT #: Maureen Gonzalez [facility] PROGRESS HNO ID: [id number] Author: Bravo Lamb) Ervin Service: Nephrology Author Type: Physician Type: Progress Notes Filed: 04/02/2019 2:42 PM Note Text: CONSULT PROGRESS NOTE SERVICE TIME: 2:32 PM CONSULTING SERVICE: Nephrology Following for:ckd Subjective:no sob/cp no c/o today Current Facility-Administered Medications Medication Dose Route Frequency - doxazosin 2 mg tab(s) (CARDURA) 2 mg ORAL BID - carvedilol 25 mg tab(s) (COREG) 25 mg ORAL BID w MEALS - latanoprost 0.005 % 1 Drop (XALATAN) 1 Drop BOTH EYES AT BEDTIME - NaCl 0.9% 3-5 mL 3-5 mL INTRAVENOUS q 12 H - heparin 5,000 Units injection 5,000 Units SUBCUTANEOUS q 12 H - ondansetron 4 mg tab(s) (ZOFRAN) 4 mg ORAL q 6 H PRN Or - ondansetron (PF) 4 mg injection (ZOFRAN) 4 mg INTRAVENOUS q 6 H PRN - magnesium hydroxide 400 mg/5 mL 30 mL (MOM) 30 mL ORAL DAILY PRN - bisacodyl 10 mg suppository (DULCOLAX) 10 mg RECTAL DAILY PRN - dextrose 40 % 15 g 15 g ORAL PRN Or - glucagon 1 mg injection (GLUCAGEN) 1 mg INTRAMUSCULAR PRN Or - dextrose 50 % 12.5 g injection 12.5 g INTRAVENOUS PRN - NaCl 0.9% 3-5 mL 3-5 mL INTRAVENOUS q 12 H - aluminum-magnesium hydroxide-simethicone 200-200-20 mg/5 mL 30 mL (MAALOX,MYLANTA,MAG-AL PLUS) 30 mL ORAL DAILY PRN - docusate sodium 100 mg cap(s) (COLACE) 100 mg ORAL BID PRN - ipratropium-albuterol 3 mL nebulizer solution (DUONEB) 3 mL INHALATION q 4 H PRN - insulin lispro pen (rapid acting) (HumaLOG KWIKPEN) SUBCUTANEOUS w MEALS - calcium acetate 667 mg tab(s) (CALPHRON) 667 mg ORAL TID w MEALS - insulin detemir U-100 15 Units injection (long acting) (LEVEMIR) 15 Units SUBCUTANEOUS DAILY (8 AM) - atorvastatin 40 mg tab(s) (LIPITOR) 40 mg ORAL AT BEDTIME - aspirin 81 mg chewable tab(s) 81 mg ORAL DAILY - polyethylene glycol 3350 17 g packet (MIRALAX, GLYCOLAX) 17 g ORAL DAILY - gabapentin 200 mg cap(s) (NEURONTIN) 200 mg ORAL DAILY - insulin lispro 6 Units pen (rapid acting) (HumaLOG KWIKPEN) 6 Units SUBCUTANEOUS w MEALS - furosemide 40 mg tab(s) (LASIX) 40 mg ORAL BID 9a/5p - hydrALAZINE 50 mg tab(s) (APRESOLINE) 50 mg ORAL q 8 H - acetaminophen 650 mg tab(s) (TYLENOL) 650 mg ORAL q 6 H PRN - ampicillin-sulbactam 3 g in NaCl 0.9% 100 mL MB+/ADD-[place]ougaloo (UNASYN) 3 g INTRAVENOUS q 8 H - sodium polystyrene sulfonate (with sorbitol) 15 g liquid (SPS) 15 g ORAL ONCE PHYSICAL EXAM: Physical Exam Performed: BP 116/51 Pulse 66 Temp (Src) 98.2 (Oral) Resp 16 Ht 5' 10 (1.78m) Wt 181 lb 14.1 oz (82.5kg) SpO2 94% BMI 26.10 kg/(m2). O2 Therapy: Room Air BLOOD PRESSURE RANGE: Systolic (24hrs), Av , Min:143 , Max:181 ; Diastolic (24hrs), Av, Min:65, Max:88 GENERAL: well developed, no distress ENMT lips pink oral mucosa moist EYES sclerae white PERRL SKIN: warm dry No rashes or lesions LUNGS: Lungs clear to auscultation no wheezing no crackles, Good diaphragmatic excursion respirations are even and unlabored CARDIAC: S1 and S2; no rubs, murmurs, or gallops ABDOMEN: Abdomen soft, non-tender, BS present in all four quadrants EXTREMITIES: B/l LE edema, clubbing NEURO: Grossly normal cognition, motor function. Sensation grossly intact, Cranial nerves II-XII intact HEME no cervical or axillary lymphadenopathy, no petechiae DATA: Diagnostic tests reviewed for today's visit: Most recent labs and imaging results reviewed if applicable Labs: Recent Labs 04/01/19 0510 WBC 16.41* HB 9.1* HCT 29.0* MCV 96.0* PLT 348 Recent Labs 04/02/19 0131 04/01/19 0510 03/31/19 0314 NA 136 134* 136 K 5.4* 5.2* 5.2* CO2 26 24 23 BUN 81* 73* 69* CREAT 2.10* 1.92* 1.81* CA 7.8* 8.5 8.4* pH, Arterial Date Value Ref Range Status 04/13/2017 7.324 (L) 7.350 - 7.450 Final Specific [place], Ur Date Value Ref Range Status 03/23/2019 1.019 1.005 - 1.030 Final Glucose, Urine Date Value Ref Range Status 03/23/2019 500 (A) Negative mg/dL Final Bilirubin, Urine Date Value Ref Range Status 03/23/2019 NEGATIVE Negative Final Ketones, Urine Date Value Ref Range Status 03/23/2019 NEGATIVE Negative mg/dL Final Hemoglobin/Blood,Ur Date Value Ref Range Status 07/25/2018 Negative Negative Final Protein, Urine Date Value Ref Range Status 03/24/2019 473.4 (H) 0.0 - 11.9 mg/dL Final Urobilinogen, Urine Date Value Ref Range Status 03/23/2019 1.0 0.2 - 1.0 EU/dL Final Nitrites Date Value Ref Range Status 07/25/2018 Negative Negative Final Nitrites Urine Date Value Ref Range Status 03/23/2019 NEGATIVE Negative Final WBC, Urine Date Value Ref Range Status 03/23/2019 >900.0 (H) 0.0 - 5.0 /hpf Final Input / Output: 24 HR: Intake/Output Summary (Last 24 hours) at 04/02/2019 1432 Last data filed at 04/02/2019 0851 Gross per 24 hour Intake 480 ml Output 775 ml Net -295 ml IV Intake: Butler: CKD 3 likely DN at baseline Edema LE Proteinuria Hyperkalemia AUR HTN Hyperphosphatemia UTI Continue lasix bid for now bp acceptable Hold ACEI or ARB till K better K 5.4 continue lasix one dose kayexalate today Veltassa not available checked with pharmacy Will benefit from veltassa as outpatient if persistent hyperkalemia Can use veltassa 8.4 grams on discharge with close monitoring of K and Mg Low K renal diet ordered Will need bmp 2-3 days after discharge in rehab Scr 2.1 worse decrease lasix to once daily Check renal US Further w/u of proteinuria 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 SIGNATURE: Bravo Mueller MD PATIENT NAME: Mauri Quinones PAGER: [phone] Normal [facility] Basic Panelon 04-01-2019 Creatinine [Mass/Vol] 1.92 mg/dL High 0.67-1.17 [facility] Comment on above: Performed By: #### E RTRP #### [address] [address] Anion gap [Moles/Vol] 11 mmol/L Normal 8-16 [facility] Comment on above: Performed By: #### E RTRP #### [address] [address] Calcium [Mass/Vol] 8.5 mg/dL Normal 8.5-10.1 [facility] Comment on above: Performed By: #### E RTRP #### [address] [address] CO2 [Moles/Vol] 24 mmol/L Normal 21-32 [facility] Comment on above: Performed By: #### E RTRP #### [facility] [address] [place], [place] [address] Glucose [Mass/Vol] 105 mg/dL High 70-99 [facility] Comment on above: Performed By: #### E RTRP #### [address] [address] Urea nitrogen [Mass/Vol] 73 mg/dL High 7-18 [facility] Comment on above: Performed By: #### E RTRP #### [facility] [address] [place], [place] [address] Chloride [Moles/Vol] 104 mmol/L Normal 98-107 [facility] Comment on above: Performed By: #### E RTRP #### [facility] [address] [place], [place] [address] Potassium [Moles/Vol] 5.2 mmol/L High 3.5-5.1 [facility] Comment on above: Performed By: #### E RTRP #### [facility] [address] [place], [place] [address] Sodium [Moles/Vol] 134 mmol/L Low 136-145 [facility] Comment on above: Performed By: #### E RTRP #### [facility] [address] [place], [place] [address] CASE MANAGEMon 04-01-2019 CASE MANAGEM HNO ID: [id number] Author: Jocelin (Rn) BISMARK Pagan Service: Care Management Author Type: Registered Nurse Type: Care Mgt Progress Note Filed: 04/01/2019 1:52 PM Note Text: CARE MANAGEMENT PROGRESS NOTE SERVICE DATE: 04/01/2019 SERVICE TIME: 1:50 PM LOS: 8 days TC and left VM for [facility] regarding acceptance of pt, have not received response in [employer] as of yet. SIGNATURE: Jocelin Pagan RN PATIENT NAME: Mauri Quinones DATE: April 01, 2019 TIME: 1:50 PM PAGER/CONTACT #: [phone] [facility] CONSULT PROGon 04-01-2019 CONSULT PROG HNO ID: [id number] Author: Mohsen Castellanos Service: Infectious Disease Author Type: Physician Type: Consult Progress Note Filed: 04/01/2019 5:52 PM Note Text: 04/01/2019 5:47 PM Infectious Disease Afebrile. Tired and sleepy today. Occasional cough, no sputum production. No bladder pain or spasms, no dysuria. BP 156/68 Pulse 72 Temp 36.8 ?C (98.2 ?F) (Oral) Resp 17 Ht 177.8 cm (5' 10) Wt 83.1 kg (183 lb 4.8 oz) SpO2 95% BMI 26.30 kg/m? Oral mucosa moist. Lungs- few basilar rales left side Ht no m Abd nontender, no bladder or flank tenderness No new micro results Recent Labs 04/01/19 0510 03/31/19 0314 03/30/19 0330 WBC 16.41* -- 16.10* HB 9.1* -- 9.3* HCT 29.0* -- 30.5* PLT 348 -- 410* NEUTNUM 12.96* -- 13.22* CREAT 1.92* 1.81* 1.70* Imp: UTI Possible pneumonia LLL GARRET/CKD- creat rising Persistent leukocytosis. DM-2 CHF Rec: Continue iv unasyn, dose modified to q8h for risisng creatinine. Mohsen Castellanos MD [facility] CONSULT PROG HNO ID: [id number] Author: Kiera Gonzalez Service: Endocrinology Author Type: Physician Type: Consult Progress Note Filed: 04/01/2019 9:10 AM Note Text: ENDOCRINOLOGY CONSULT PROGRESS NOTE SERVICE DATE: 04/01/2019 SERVICE TIME: 8:55 AM Subjective INTERVAL HPI: Following for DM type 2. Adm with severe neck and B/L shoulder pain. Has GARRET. Notes and orders reviewed. Pt has erratic po intake, better now. Diet: DIET HEART HEALTHY Activity: up in room with help Review of Systems: PAIN ASSESSMENT: still has neck and shoulder pain, better GENERAL: No weight loss, malaise or fevers. RESPIRATORY: Negative for cough, hemoptysis, wheezing, COPD, dyspnea or shortness of breath CARDIOVASCULAR: no CP, has edema GI: No nausea, vomiting, or diarrhea ENDOCRINE: Negative for cold or heat intolerance, polyuria or polydipsia. NEURO: no numbness/weakness extremities The remainder of the review of systems is negative. Current Facility-Administered Medications Medication Dose Route Frequency - doxazosin 2 mg tab(s) (CARDURA) 2 mg ORAL BID - carvedilol 25 mg tab(s) (COREG) 25 mg ORAL BID w MEALS - latanoprost 0.005 % 1 Drop (XALATAN) 1 Drop BOTH EYES AT BEDTIME - NaCl 0.9% 3-5 mL 3-5 mL INTRAVENOUS q 12 H - heparin 5,000 Units injection 5,000 Units SUBCUTANEOUS q 12 H - ondansetron 4 mg tab(s) (ZOFRAN) 4 mg ORAL q 6 H PRN Or - ondansetron (PF) 4 mg injection (ZOFRAN) 4 mg INTRAVENOUS q 6 H PRN - magnesium hydroxide 400 mg/5 mL 30 mL (MOM) 30 mL ORAL DAILY PRN - bisacodyl 10 mg suppository (DULCOLAX) 10 mg RECTAL DAILY PRN - dextrose 40 % 15 g 15 g ORAL PRN Or - glucagon 1 mg injection (GLUCAGEN) 1 mg INTRAMUSCULAR PRN Or - dextrose 50 % 12.5 g injection 12.5 g INTRAVENOUS PRN - NaCl 0.9% 3-5 mL 3-5 mL INTRAVENOUS q 12 H - aluminum-magnesium hydroxide-simethicone 200-200-20 mg/5 mL 30 mL (MAALOX,MYLANTA,MAG-AL PLUS) 30 mL ORAL DAILY PRN - docusate sodium 100 mg cap(s) (COLACE) 100 mg ORAL BID PRN - ipratropium-albuterol 3 mL nebulizer solution (DUONEB) 3 mL INHALATION q 4 H PRN - insulin lispro pen (rapid acting) (HumaLOG KWIKPEN) SUBCUTANEOUS w MEALS - calcium acetate 667 mg tab(s) (CALPHRON) 667 mg ORAL TID w MEALS - insulin detemir U-100 15 Units injection (long acting) (LEVEMIR) 15 Units SUBCUTANEOUS DAILY (8 AM) - atorvastatin 40 mg tab(s) (LIPITOR) 40 mg ORAL AT BEDTIME - aspirin 81 mg chewable tab(s) 81 mg ORAL DAILY - polyethylene glycol 3350 17 g packet (MIRALAX, GLYCOLAX) 17 g ORAL DAILY - gabapentin 200 mg cap(s) (NEURONTIN) 200 mg ORAL DAILY - insulin lispro 6 Units pen (rapid acting) (HumaLOG KWIKPEN) 6 Units SUBCUTANEOUS w MEALS - furosemide 40 mg tab(s) (LASIX) 40 mg ORAL BID 9a/5p - hydrALAZINE 50 mg tab(s) (APRESOLINE) 50 mg ORAL q 8 H - acetaminophen 650 mg tab(s) (TYLENOL) 650 mg ORAL q 6 H PRN - ampicillin-sulbactam 3 g in NaCl 0.9% 100 mL MB+/ADD-[place]oo (UNASYN) 3 g INTRAVENOUS q 6 H Objective PHYSICAL EXAM: GENERAL: awake, no distress; has a cervical collar; hard of hearing (has hearing aid) SKIN: Skin color, texture, turgor normal. No rashes or lesions. OROPHARYNX: Lips, mucosa, and tongue normal. Teeth and gums normal. Oropharynx normal. LUNGS: Lungs clear to auscultation, Good diaphragmatic excursion CARDIAC: Normal S1 and S2; no rubs, murmurs, or gallops ABDOMEN: Abdomen soft, non-tender, BS normal, No masses or organomegaly EXTREMITIES: 1+ edema B/L LE, no clubbing or skin discoloration., No ulcers NEURO: Grossly normal cognition, motor function, and cranial nerves BP 155/68 Pulse 73 Temp (Src) 98.4 (Oral) Resp 18 Ht 5' 10 (1.78m) Wt 183 lb 4.8 oz (83.1kg) SpO2 94% BMI 26.30 kg/(m2). O2 Therapy: Room Air DATA: Diagnostic tests reviewed for today's visit: Most recent labs and imaging results. Last 24 hr BS reviewed. Recent Labs 04/01/19 0618 04/01/19 0510 03/31/19 2038 03/31/19 1609 03/31/19 1053 03/31/19 0638 03/31/19 0314 03/30/19 0330 03/29/19 1137 GLUC -- 105* -- -- -- -- 101* -- 129* -- 120* GLUCOSEMETER 111* -- 134* 167* 196* 130* -- < > -- < > -- < > = values in this interval not displayed. Assessment/Plan Type 2 diabetes mellitus, uncontrolled, without complication, with long-term current use of insulin (HCC) POA: Yes Assessment AND Plan: 12-15 ears duration, on insulin for 5 years, Levemir 17 units qhs; off Metformin since 06/2018 due to CKD. A1c 10.4 (was 6.6 in 06/2018 before hip surgery) Checks BS q.o.d. at home, FBS 200-250's at home. BS 287 on adm, no Levemir given on 03/23 hs. Levemir resumed 10 units qam and Humalog 6 units tid started on 03/24 am. BS were high on 03/24; increased Levemir to 15 units qam and Humalog to 8 units tid with SSI on 03/25. BS better but occ <100, reduced Humalog to 6 units tid on 03/27. BS stable, cont Rx Levemir 15 units qam and Humalog 6 units tid (held if pt not eating). Will need Rx for Humalog when goes home. D/C plan for rehab noted. Neck/sholuder pain, hx ankylosing spondylitis; pain management seeing pt GARRET (acute kidney injury) ([facility]) POA: Yes Assessment AND Plan: creat 1.92(1.81)(1.70)(1.77)(1.8 6)(2.09)(2.33)(2.47); baseline 1.54; per renal CKD (chronic kidney disease) stage 3, GFR 30-59 ml/min ([facility]) POA: Yes Assessment AND Plan: creat 1.54 in 07/2018 Arteriosclerotic heart disease (ASHD) POA: Yes Assessment AND Plan: hx Hypertension, essential POA: Yes Assessment AND Plan: per caprice UTI (urinary tract infection) POA: Unknown Assessment AND Plan: on A/B Chronic combined systolic and diastolic CHF (congestive heart failure) ([facility]) POA: Yes Assessment AND Plan: hx SIGNATURE: Kiera Gonzalez MD PATIENT NAME: Mauri Quinones DATE: April 01, 2019 TIME: 9:10 AM PAGER: [phone] Normal [facility] Hemogram/Diffon 04-01-2019 Abs Immature Grans 0.26 thou/cmm High 0.00-0.05 [facility] Comment on above: Performed By: #### E RTRP #### [place] [address] Abs Neut (ANC) 12.96 thou/cmm High 1.78-5.38 [facility] Comment on above: Performed By: #### E RTRP #### [place] [address] Abs. Baso 0.07 thou/cmm Normal 0.01-0.08 [facility] Comment on above: Performed By: #### E RTRP #### [facility] [address] [place], [place] [address] Abs. Bucks 1.69 thou/cmm High 0.30-0.82 [facility] Comment on above: Performed By: #### E RTRP #### [facility] [address] [place], [place] [address] Basophils/100 WBC (Bld) 0.4 % Normal [facility] Comment on above: Performed By: #### E RTRP #### [facility] [address] [place], [place] [address] Eosinophils (Bld) [#/Vol] 0.39 thou/cmm Normal 0.04-0.54 [facility] Comment on above: Performed By: #### E RTRP #### [facility] [address] [place], [place] [address] Eosinophils/100 WBC (Bld) 2.4 % Normal [facility] Comment on above: Performed By: #### E RTRP #### [facility] [address] [place], [place] [address] Immature Grans 1.60 % Normal [facility] Comment on above: Performed By: #### E RTRP #### [facility] [address] [place], [place] [address] Lymphocytes (Bld) [#/Vol] 1.03 thou/cmm Normal 0.84-2.85 [facility] Comment on above: Performed By: #### E RTRP #### [facility] [address] [place], [place] [address] Lymphocytes/100 WBC (Bld) 6.3 % Normal [facility] Comment on above: Performed By: #### E RTRP #### [facility] [address] [place], [place] [address] Monocytes/100 WBC (Bld) 10.3 % Normal [facility] Comment on above: Performed By: #### E RTRP #### [facility] [address] [place], [place] [address] Seg Neutrophil 79.0 % Normal [facility] Comment on above: Performed By: #### E RTRP #### [facility] [address] [place], [place] [address] Erythrocyte distribution width (RBC) [Ratio] 13.9 % Normal 11.6-14.4 [facility] Comment on above: Performed By: #### E RTRP #### [facility] [address] [place], [place] [address] Hematocrit (Bld) [Volume fraction] 29.0 % Low 40.1-51.0 [facility] Comment on above: Performed By: #### E RTRP #### [facility] [address] [place] [address] Hemoglobin (Bld) [Mass/Vol] 9.1 g/dL Low 13.7-17.5 [facility] Comment on above: Performed By: #### E RTRP #### [facility] [address] [place] [address] MCH (RBC) [Entitic mass] 30.1 pg Normal 25.7-32.2 [facility] Comment on above: Performed By: #### E RTRP #### [facility] [address] [place] [address] MCHC (RBC) [Mass/Vol] 31.4 % Low 32.3-36.5 [facility] Comment on above: Performed By: #### E RTRP #### [facility] [address] [place] [address] MCV (RBC) [Entitic vol] 96.0 fL High 83.2-95.6 [facility] Comment on above: Performed By: #### E RTRP #### [facility] [address] [place], [place] [address] Platelet mean volume (Bld) [Entitic vol] 8.8 fL Normal 8.7-12.0 [facility] Comment on above: Performed By: #### E RTRP #### [facility] [address] [place], [place] [address] Platelets (Bld) [#/Vol] 348 thou/cmm Normal 141-365 [facility] Comment on above: Performed By: #### E RTRP #### [facility] [address] [place], [place] [address] RBC (Bld) [#/Vol] 3.02 mil/cmm Low 4.63-6.08 [facility] Comment on above: Performed By: #### E RTRP #### [facility] [address] [place] [address] RDW SD 48.4 fl High 36.1-45.8 [facility] Comment on above: Performed By: #### E RTRP #### [facility] [address] [place] [address] WBC (Bld) [#/Vol] 16.41 thou/cmm High 4.23-9.07 [facility] Comment on above: Performed By: #### E RTRP #### [facility] [address] [place] [address] NUTRITIONon 04-01-2019 NUTRITION HNO ID: [id number] Author: Elizabeth [place] Service: Nutrition Therapy Author Type: Registered Dietitian Type: Nutrition Filed: 04/01/2019 3:29 PM Note Text: NUTRITION THERAPY INITIAL ASSESSMENT SERVICE DATE: 04/01/2019 SERVICE TIME: 11:10am RECOMMENDED MALNUTRITION DIAGNOSIS: MODERATE PROTEIN-CALORIE MALNUTRITION In the context of Acute Illness or Injury based on: Insufficient Energy Intake: <75% for >7 days Subcutaneous Fat Loss: Moderate Loss Muscle Loss Mild Loss NUTRITION CARE PLAN: Problem, Etiology and Signs/Symptoms: Suboptimal protein/energy intake related to decreased ability to consume sufficient nutrition as evidenced by pt interview. Intervention: - Continue therapeutic diet + 2000ml FR - Heart Healthy - Begin Ensure Enlive BID to provide 350 kcals, 20g protein per serving. Monitor and Evaluation: Goal: Meet >75% of estimated needs Monitor fluid/electrolyte balance Monitor labs, I/Os, vital signs, weight Monitor supplement intake Discharge Nutrition Recommendations: Diet: Heart Healthy Chart reviewed for- Nutrition Consult Per HPI: Mr. Quinones is a 63 year old male with PMH of right hip and right knee replacement, CABG, CAD, DM, NSTEMI, ankylosis spondylosis presents to the ER from home due to bilateral neck and shoulder pain. Patient states approximately 9 days ago he was mowing his grass and grabbed onto a branch that pulled his arms and shoulders back. He states he did not begin to have neck and shoulder pain until approximately 2 days later. Patient has been to [place] [facility] ?2 and was diagnosed with a cervical strain as well as arthritis in the neck. He was put on muscle relaxants and pain medications. He was also diagnosed with a UTI and put on Keflex. Patient was not having any improvement with symptoms and came to [facility] ER. Patient currently is having pain in his neck along with bilateral shoulders. He does have tenderness with palpation in bilateral shoulders and neck. Per patient, he has been more tired and lethargic. He always has trouble walking but it seems more severe at this time. Patient denies any slurred speech, however, states she noticed some slurred speech. On exam, no slurred speech or facial droop noted. He does have chronic right-sided weakness due to right hip and knee replacement. He is able to move all extremities. He denies any numbness or tingling in any of his extremities. He denies any changes in sensation in any of his extremities. He denies any symptoms of a UTI. He denies dysuria, hematuria, urgency or frequency. Patient denies any chest pain, shortness of breath, nausea, vomiting, diarrhea or chills or fevers at home. Patient is a nonsmoker. He denies alcohol or illicit drug use. He is currently alert and oriented ?3. Able to answer all questions appropriately. He does follow all commands appropriately as well. 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 Arteriosclerotic Heart Disease ([facility]) Glaucoma Suspect of Left Eye Hypertension, Essential Lower Leg Edema Chronic Left Hip Pain Anemia of Chronic Renal Failure, Stage 3 (Moderate) ([facility]) Acute On Chronic Diastolic Congestive Heart Failure ([facility]) Recurrent Right Pleural Effusion Pvd (Peripheral Vascular Disease) ([facility]) Altered Mental Status Uti (Urinary Tract Infection) Chronic Combined Systolic and Diastolic Chf (Congestive Heart Failure) ([facility]) Hyperkalemia Hypoxia Hypoalbuminemia Garret (Acute Kidney Injury) ([facility]) Ckd (Chronic Kidney Disease) Stage 3, Gfr 30-59 Ml/Min ([facility]) High Phosphate Levels Hyponatremia Delirium PAST MEDICAL HISTORY Diagnosis Date - GARRET (acute kidney injury) ([facility]) 03/24/2019 - Ankylosing spondylitis ([facility]) - CAD (coronary artery disease) - Cellulitis - Chronic combined systolic and diastolic CHF (congestive heart failure) ([facility]) 03/24/2019 - CKD (chronic kidney disease) stage 3, GFR 30-59 ml/min ([facility]) 03/24/2019 - Constipation - Diabetes ([facility]) - Gout - High phosphate levels 03/24/2019 - Hx of fracture multiple bones - Hyperkalemia 03/24/2019 - Hypoalbuminemia 03/24/2019 - Hyponatremia 03/24/2019 - Hypoxia 03/24/2019 - NSTEMI (non-ST elevated myocardial infarction) ([facility]) 03/12/2017 [facility] admit - Osteoarthritis PAST SURGICAL HISTORY Procedure [...] [facility] - TOE SURGERY HX Right - TOTAL HIP REPLACEMENT Right Orders Placed This Encounter DIET HEART HEALTHY Standing Status: Standing Number of Occurrences: 1 Order Specific Question: Heart Healthy Answer: 2 GM SODIUM (<200 MG CHOL / LOW SAT FAT) Order Specific Question: Fluid Restriction Answer: 2000 ML Lines and Drains: Peripheral 03/30/19 0333 Short Right Forearm 20 Gauge (Active) Indwelling Urinary Catheter 03/28/19 1500 Butler 16 Fr (Active) Nutritional Intake Prior to Admission: >75% estimated energy needs over the past 2 month(s) <75% estimated energy needs over the past 8 day(s) Pt states [employer] appetite and PO were adequate and denies weight loss. States UBW to be 185lbs. PO has been poor this admission d/t not feeling well- pt states consuming 25% of meals. Per epic documentation, pt consuming 25-100% of meals. Pt encouraged to eat what he can. Agreeable to drinking a supplement. Pt to d/c to rehab. GI symptoms: none Nutrition Abdominal Exam: and not assessed ANTHROPOMETRICS Height: 177.8 cm (5' 10) Admission Weight: 81.6 kg (180 lb) Current Weight: 83.1 kg (183 lb 4.8 oz) Body mass index is 26.3 kg/m?. overweight Weight has decreased by 3.2 kg over 6 months representing 3.8 % weight change potentially clinically significant but does not meet criteria to support a malnutrition diagnosis Last Wt 03/31/19 : 83.1 kg (183 lb 4.8 oz) ~ Bed Scale 10/21/18 : 86.2 kg (190 lb) ~ Office Visit 08/06/18 : 80.7 kg (178 lb) 07/11/18 : 79.4 kg (175 lb) 05/03/18 : 81.2 kg (179 lb) 04/17/18 : 79.2 kg (174 lb 8 oz) 04/04/18 : 79.6 kg (175 lb 8 oz) 03/28/18 : 82.1 kg (181 lb) 03/21/18 : 78 kg (172 lb) 03/14/18 : 80.1 kg (176 lb 8 oz) 03/04/18 : 79.8 kg (176 lb) 02/20/18 : 78.5 kg (173 lb) 02/04/18 : 83 kg (183 lb) 09/24/17 : 80.3 kg (177 lb) 08/21/17 : 80.7 kg (178 lb) 06/15/17 : 79.4 kg (175 lb) 05/16/17 : 78.9 kg (174 lb) 04/25/17 : 83 kg (183 lb) 03/28/17 : 72.1 kg (159 lb) 03/01/17 : 79.9 kg (176 lb 1.3 oz) Dosing Weight: 83.2 kg Resting Metabolic Rate: 1646 Estimated kilocalorie needs: 0630-6473 kilocalories determined by 25-30 kcal/kg Estimated protein needs: 67 grams determined by .8 g/kg Current weight r/t CKD stage 3 Estimated fluid needs: 0+ milliliters based on 25 mL/kg NUTRITION FOCUSED PHYSICAL EXAM: Subcutaneous Fat Loss Orbital No fat loss Triceps Moderate Mid-axillary at the iliac crest Unable to determine at this time Muscle Loss Locations: Temporalis No muscle loss Pectoralis Unable to determine at this time Deltoids Mild Interosseous No muscle loss Latissimus dorsi, trapezius Unable to determine at this time Quadriceps Unable to determine at this time Gastrocnemius Unable to determine at this time Potential micronutrient deficiency revealed in: No deficiency identified Edema: Yes Lower extremities Moderate 2+ Ascites: No Assessment of Functional Status: Functional capacity is unrelated to nutrition status Temperature Max in 24 hours: Temp (24hrs), Av.8 ?C (98.3 ?F), Min:36.7 ?C (98.1 ?F), Max:37 ?C (98.6 ?F) BP 155/68 Pulse 73 Temp 36.9 ?C (98.4 ?F) (Oral) Resp 18 Ht 177.8 cm (5' 10) Wt 83.1 kg (183 lb 4.8 oz) SpO2 94% BMI 26.30 kg/m? Recent Labs 04/01/19 0510 03/31/19 0314 GLUC 105* 101* BUN 73* 69* CREAT 1.92* 1.81* NA 134* 136 K 5.2* 5.2* CHLOR 104 106 CO2 24 23 ALB -- 1.4* P -- 4.6 HB 9.1* -- HCT 29.0* -- WBC 16.41* -- Potential Signs of Inflammation: leukocytosis, hyperglycemia, hypoalbuminemia, imaging studies, microbiologic cultures and chronic condition ALLERGIES Allergen Reactions - Lyrica [Pregabalin] Swelling Current Facility-Administered Medications Medication Dose Route Frequency - ampicillin-sulbactam 3 g in NaCl 0.9% 100 mL MB+/ADD-Tougaloo (UNASYN) 3 g INTRAVENOUS q 6 H - acetaminophen 650 mg tab(s) (TYLENOL) 650 mg ORAL q 6 H PRN - insulin lispro 6 Units pen (rapid acting) (HumaLOG KWIKPEN) 6 Units SUBCUTANEOUS w MEALS - furosemide 40 mg tab(s) (LASIX) 40 mg ORAL BID 9a/5p - hydrALAZINE 50 mg tab(s) (APRESOLINE) 50 mg ORAL q 8 H - atorvastatin 40 mg tab(s) (LIPITOR) 40 mg ORAL AT BEDTIME - aspirin 81 mg chewable tab(s) 81 mg ORAL DAILY - polyethylene glycol 3350 17 g packet (MIRALAX, GLYCOLAX) 17 g ORAL DAILY - gabapentin 200 mg cap(s) (NEURONTIN) 200 mg ORAL DAILY - doxazosin 2 mg tab(s) (CARDURA) 2 mg ORAL BID - carvedilol 25 mg tab(s) (COREG) 25 mg ORAL BID w MEALS - latanoprost 0.005 % 1 Drop (XALATAN) 1 Drop BOTH EYES AT BEDTIME - NaCl 0.9% 3-5 mL 3-5 mL INTRAVENOUS q 12 H - heparin 5,000 Units injection 5,000 Units SUBCUTANEOUS q 12 H - ondansetron 4 mg tab(s) (ZOFRAN) 4 mg ORAL q 6 H PRN Or - ondansetron (PF) 4 mg injection (ZOFRAN) 4 mg INTRAVENOUS q 6 H PRN - magnesium hydroxide 400 mg/5 mL 30 mL (MOM) 30 mL ORAL DAILY PRN - bisacodyl 10 mg suppository (DULCOLAX) 10 mg RECTAL DAILY PRN - dextrose 40 % 15 g 15 g ORAL PRN Or - glucagon 1 mg injection (GLUCAGEN) 1 mg INTRAMUSCULAR PRN Or - dextrose 50 % 12.5 g injection 12.5 g INTRAVENOUS PRN - NaCl 0.9% 3-5 mL 3-5 mL INTRAVENOUS q 12 H - aluminum-magnesium hydroxide-simethicone 200-200-20 mg/5 mL 30 mL (MAALOX,MYLANTA,MAG-AL PLUS) 30 mL ORAL DAILY PRN - docusate sodium 100 mg cap(s) (COLACE) 100 mg ORAL BID PRN - ipratropium-albuterol 3 mL nebulizer solution (DUONEB) 3 mL INHALATION q 4 H PRN - insulin lispro pen (rapid acting) (HumaLOG KWIKPEN) SUBCUTANEOUS w MEALS - calcium acetate 667 mg tab(s) (CALPHRON) 667 mg ORAL TID w MEALS - insulin detemir U-100 15 Units injection (long acting) (LEVEMIR) 15 Units SUBCUTANEOUS DAILY (8 AM) Date 03/31/19699 - 04/01/1965804/01/19699 - 04/02/19 0659 Shift 7755-0769 8458-0552 8680-1903 24 Hour Total 5662-5757 1098-2839 0355-7733 24 Hour Total INTAKE PO 240 240 PO 240 240 Shift Total 240 240 OUTPUT Urine [phone] Output ( Indwelling Urinary Catheter 03/28/19 1500 Butler 16 Fr) [phone] # of BMs Number of BMs 1 x 1 x 1 x 1 x Shift Total 018 663 3313 Weight (kg) 83.1 83.1 83.1 83.1 83.1 83.1 83.1 83.1 Vitamin and Mineral Labs in the past year: Recent Labs 03/24/19 1019 04/17/18 1609 B12 1,687* -- TIBC -- 312 FE -- 77 BOBY -- 142.0 MNT Billing Type: Initial Assess/15 min 2 units SIGNATURE: Elizabeth [address] RD,LD PATIENT NAME: Mauri Quinones DATE: April 01, 2019 TIME: 9:24 AM PAGER: [phone] Normal [facility] PROGRESSon 04-01-2019 PROGRESS HNO ID: [id number] Author: Ra Alcala Service: Hospital Medicine Author Type: Physician Type: Progress Notes Filed: 04/01/2019 3:59 PM Note Text: DEPARTMENT OF HOSPITAL MEDICINE PROGRESS NOTE SERVICE DATE: 04/01/2019 SERVICE TIME: 3:55 PM Hospital Medicine/Primary Attending: Ra Alcala MD NIGHT AND WEEKEND COVERAGE: After 7pm please page [phone] SUBJECTIVE: F/u UTI. No CP SOB NVD, mentation baseline OBJECTIVE: PHYSICAL EXAM: BP 156/68 Pulse 72 Temp (Src) 98.2 (Oral) Resp 17 Ht 5' 10 (1.78m) Wt 183 lb 4.8 oz (83.1kg) SpO2 95% BMI 26.30 kg/(m2). O2 Therapy: Room Air General - AANDOx3, NAD, Calm CV - RRR S1 S2, No M/R/G RESP - CTA B/L No wheezes, ronchi, rales ABD - soft, NT, ND +BS ENT- no icterus Neuro- No dysarthria MEDICATIONS: Current Facility-Administered Medications Medication Dose Route Frequency - doxazosin 2 mg tab(s) (CARDURA) 2 mg ORAL BID - carvedilol 25 mg tab(s) (COREG) 25 mg ORAL BID w MEALS - latanoprost 0.005 % 1 Drop (XALATAN) 1 Drop BOTH EYES AT BEDTIME - NaCl 0.9% 3-5 mL 3-5 mL INTRAVENOUS q 12 H - heparin 5,000 Units injection 5,000 Units SUBCUTANEOUS q 12 H - ondansetron 4 mg tab(s) (ZOFRAN) 4 mg ORAL q 6 H PRN Or - ondansetron (PF) 4 mg injection (ZOFRAN) 4 mg INTRAVENOUS q 6 H PRN - magnesium hydroxide 400 mg/5 mL 30 mL (MOM) 30 mL ORAL DAILY PRN - bisacodyl 10 mg suppository (DULCOLAX) 10 mg RECTAL DAILY PRN - dextrose 40 % 15 g 15 g ORAL PRN Or - glucagon 1 mg injection (GLUCAGEN) 1 mg INTRAMUSCULAR PRN Or - dextrose 50 % 12.5 g injection 12.5 g INTRAVENOUS PRN - NaCl 0.9% 3-5 mL 3-5 mL INTRAVENOUS q 12 H - aluminum-magnesium hydroxide-simethicone 200-200-20 mg/5 mL 30 mL (MAALOX,MYLANTA,MAG-AL PLUS) 30 mL ORAL DAILY PRN - docusate sodium 100 mg cap(s) (COLACE) 100 mg ORAL BID PRN - ipratropium-albuterol 3 mL nebulizer solution (DUONEB) 3 mL INHALATION q 4 H PRN - insulin lispro pen (rapid acting) (HumaLOG KWIKPEN) SUBCUTANEOUS w MEALS - calcium acetate 667 mg tab(s) (CALPHRON) 667 mg ORAL TID w MEALS - insulin detemir U-100 15 Units injection (long acting) (LEVEMIR) 15 Units SUBCUTANEOUS DAILY (8 AM) - atorvastatin 40 mg tab(s) (LIPITOR) 40 mg ORAL AT BEDTIME - aspirin 81 mg chewable tab(s) 81 mg ORAL DAILY - polyethylene glycol 3350 17 g packet (MIRALAX, GLYCOLAX) 17 g ORAL DAILY - gabapentin 200 mg cap(s) (NEURONTIN) 200 mg ORAL DAILY - insulin lispro 6 Units pen (rapid acting) (HumaLOG KWIKPEN) 6 Units SUBCUTANEOUS w MEALS - furosemide 40 mg tab(s) (LASIX) 40 mg ORAL BID 9a/5p - hydrALAZINE 50 mg tab(s) (APRESOLINE) 50 mg ORAL q 8 H - acetaminophen 650 mg tab(s) (TYLENOL) 650 mg ORAL q 6 H PRN - ampicillin-sulbactam 3 g in NaCl 0.9% 100 mL MB+/ADD-Tougaloo (UNASYN) 3 g INTRAVENOUS q 6 H DATA: Diagnostic tests reviewed for today's visit: CBC: Recent Labs 04/01/19 0510 WBC 16.41* RBC 3.02* HB 9.1* HCT 29.0* PLT 348 MCV 96.0* MCH 30.1 MPV 8.8 RDW 13.9 Coags: No results for input(s): INR, APTT in the last 24 hours. Invalid input(s): PT BMP: Recent Labs 04/01/19 0510 NA 134* K 5.2* CHLOR 104 CO2 24 BUN 73* CREAT 1.92* GLUC 105* CMP: Recent Labs 04/01/19 0510 NA 134* K 5.2* CHLOR 104 CO2 24 BUN 73* CREAT 1.92* GLUC 105* CA 8.5 ANION 11 Cardiac Enzymes: No results for input(s): CK, MB, CKMB, TROPT in the last 24 hours. Liver Function, Amylase, Lipase: No results for input(s): TPROT, ALB, ALT, AST, ALKPHOS, TBILI, AMYLASE, LIPASE, LACTATE in the last 24 hours. MG/PHOS: No results for input(s): MG, P in the last 24 hours. Renal Panel: Recent Labs 04/01/19 0510 CREAT 1.92* BUN 73* GLUC 105* CA 8.5 CHLOR 104 K 5.2* CO2 24 NA 134* Heme: No results for input(s): RETICP, ABSRETIC, LD, BOBY, FE, TIBC, TRANSFERSAT in the last 24 hours. Albumin/Creat Ratio (mg/g) Date Value 01/31/2018 3,068 (H) Assessment/Plan 1.) Neck Pain- Resolved 2.) Pyuria?2/2 Enterococci UTI- Unasyn per ID 3.) GARRET on CKD 3- Renal function better. Likely to start VANESSA soon for improvement of BP control 4.) DM2- SSI 5.) Acute metabolic Encephalopathy- Resolved 6.) HTN- Add lisinopril if renal ok 7.) Hyperkalemia- Hold VANESSA ? PLAN: - Increase insulin doses?effective - Mentation baseline VTE Prophylaxis: Lovenox 40mg Sub Q Daily Disposition: Extended Care Facility Plan of care discussed with: Patient SIGNATURE: Ra Alcala MD PATIENT NAME: Mauri Quinones DATE: April 01, 2019 TIME: 3:55 PM PAGER/CONTACT #: My Pager Normal [facility] PROGRESS HNO ID: [id number] Author: Bravo Mueller Service: Nephrology Author Type: Physician Type: Progress Notes Filed: 04/01/2019 3:10 PM Note Text: CONSULT PROGRESS NOTE SERVICE TIME: 3:01 PM CONSULTING SERVICE: Nephrology Following for:ckd Subjective:no sob/cp no c/o today Current Facility-Administered Medications Medication Dose Route Frequency - doxazosin 2 mg tab(s) (CARDURA) 2 mg ORAL BID - carvedilol 25 mg tab(s) (COREG) 25 mg ORAL BID w MEALS - latanoprost 0.005 % 1 Drop (XALATAN) 1 Drop BOTH EYES AT BEDTIME - NaCl 0.9% 3-5 mL 3-5 mL INTRAVENOUS q 12 H - heparin 5,000 Units injection 5,000 Units SUBCUTANEOUS q 12 H - ondansetron 4 mg tab(s) (ZOFRAN) 4 mg ORAL q 6 H PRN Or - ondansetron (PF) 4 mg injection (ZOFRAN) 4 mg INTRAVENOUS q 6 H PRN - magnesium hydroxide 400 mg/5 mL 30 mL (MOM) 30 mL ORAL DAILY PRN - bisacodyl 10 mg suppository (DULCOLAX) 10 mg RECTAL DAILY PRN - dextrose 40 % 15 g 15 g ORAL PRN Or - glucagon 1 mg injection (GLUCAGEN) 1 mg INTRAMUSCULAR PRN Or - dextrose 50 % 12.5 g injection 12.5 g INTRAVENOUS PRN - NaCl 0.9% 3-5 mL 3-5 mL INTRAVENOUS q 12 H - aluminum-magnesium hydroxide-simethicone 200-200-20 mg/5 mL 30 mL (MAALOX,MYLANTA,MAG-AL PLUS) 30 mL ORAL DAILY PRN - docusate sodium 100 mg cap(s) (COLACE) 100 mg ORAL BID PRN - ipratropium-albuterol 3 mL nebulizer solution (DUONEB) 3 mL INHALATION q 4 H PRN - insulin lispro pen (rapid acting) (HumaLOG KWIKPEN) SUBCUTANEOUS w MEALS - calcium acetate 667 mg tab(s) (CALPHRON) 667 mg ORAL TID w MEALS - insulin detemir U-100 15 Units injection (long acting) (LEVEMIR) 15 Units SUBCUTANEOUS DAILY (8 AM) - atorvastatin 40 mg tab(s) (LIPITOR) 40 mg ORAL AT BEDTIME - aspirin 81 mg chewable tab(s) 81 mg ORAL DAILY - polyethylene glycol 3350 17 g packet (MIRALAX, GLYCOLAX) 17 g ORAL DAILY - gabapentin 200 mg cap(s) (NEURONTIN) 200 mg ORAL DAILY - insulin lispro 6 Units pen (rapid acting) (HumaLOG KWIKPEN) 6 Units SUBCUTANEOUS w MEALS - furosemide 40 mg tab(s) (LASIX) 40 mg ORAL BID 9a/5p - hydrALAZINE 50 mg tab(s) (APRESOLINE) 50 mg ORAL q 8 H - acetaminophen 650 mg tab(s) (TYLENOL) 650 mg ORAL q 6 H PRN - ampicillin-sulbactam 3 g in NaCl 0.9% 100 mL MB+/ADD-Tougaloo (UNASYN) 3 g INTRAVENOUS q 6 H PHYSICAL EXAM: Physical Exam Performed: BP 156/68 Pulse 72 Temp (Src) 98.2 (Oral) Resp 17 Ht 5' 10 (1.78m) Wt 183 lb 4.8 oz (83.1kg) SpO2 95% BMI 26.30 kg/(m2). O2 Therapy: Room Air BLOOD PRESSURE RANGE: Systolic (24hrs), Av , Min:143 , Max:181 ; Diastolic (24hrs), Av, Min:65, Max:88 GENERAL: well developed, no distress ENMT lips pink oral mucosa moist EYES sclerae white PERRL SKIN: warm dry No rashes or lesions LUNGS: Lungs clear to auscultation no wheezing no crackles, Good diaphragmatic excursion respirations are even and unlabored CARDIAC: S1 and S2; no rubs, murmurs, or gallops ABDOMEN: Abdomen soft, non-tender, BS present in all four quadrants EXTREMITIES: B/l LE edema, clubbing NEURO: Grossly normal cognition, motor function. Sensation grossly intact, Cranial nerves II-XII intact HEME no cervical or axillary lymphadenopathy, no petechiae DATA: Diagnostic tests reviewed for today's visit: Most recent labs and imaging results reviewed if applicable Labs: Recent Labs 04/01/19 0510 03/30/19 0330 WBC 16.41* 16.10* HB 9.1* 9.3* HCT 29.0* 30.5* MCV 96.0* 95.6 PLT 348 410* Recent Labs 04/01/19 0510 03/31/19 0314 03/30/19 1205 03/30/19 0330 NA 134* 136 -- 138 K 5.2* 5.2* 4.9 5.7* CO2 24 23 -- 21 BUN 73* 69* -- 71* CREAT 1.92* 1.81* -- 1.70* CA 8.5 8.4* -- 8.4* pH, Arterial Date Value Ref Range Status 04/13/2017 7.324 (L) 7.350 - 7.450 Final Specific [place], Ur Date Value Ref Range Status 03/23/2019 1.019 1.005 - 1.030 Final Glucose, Urine Date Value Ref Range Status 03/23/2019 500 (A) Negative mg/dL Final Bilirubin, Urine Date Value Ref Range Status 03/23/2019 NEGATIVE Negative Final Ketones, Urine Date Value Ref Range Status 03/23/2019 NEGATIVE Negative mg/dL Final Hemoglobin/Blood,Ur Date Value Ref Range Status 07/25/2018 Negative Negative Final Protein, Urine Date Value Ref Range Status 03/24/2019 473.4 (H) 0.0 - 11.9 mg/dL Final Urobilinogen, Urine Date Value Ref Range Status 03/23/2019 1.0 0.2 - 1.0 EU/dL Final Nitrites Date Value Ref Range Status 07/25/2018 Negative Negative Final Nitrites Urine Date Value Ref Range Status 03/23/2019 NEGATIVE Negative Final WBC, Urine Date Value Ref Range Status 03/23/2019 >900.0 (H) 0.0 - 5.0 /hpf Final Input / Output: 24 HR: Intake/Output Summary (Last 24 hours) at 04/01/2019 1501 Last data filed at 04/01/2019 0825 Gross per 24 hour Intake 360 ml Output 900 ml Net -540 ml IV Intake: Butler: CKD 3 likely DN at baseline Edema LE Proteinuria Hyperkalemia HTN Hyperphosphatemia UTI Continue lasix bid for now bp acceptable Hold ACEI or ARB till K better K 5.2 continue lasix bid Will need bmp 2-3 days after discharge in rehab Scr 1.9 relatively stable but edema much better though still present Check PVR after Butler removal Check renal US Further w/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 SIGNATURE: Bravo Mueller MD PATIENT NAME: Mauri Quinones PAGER: [phone] [facility] CASE MANAGEMon 03-31-2019 CASE MANAGEM HNO ID: [id number] Author: Addie (Rn) BISMARK Mcdaniel Service: Care Management Author Type: Registered Nurse Type: Care Mgt Progress Note Filed: 03/31/2019 3:56 PM Note Text: CARE MANAGEMENT PROGRESS NOTE SERVICE DATE: 03/31/2019 SERVICE TIME: 3:54 PM LOS: 7 days Met with patient and family at the bed side. They are requesting [facility] rehab. Referral placed. Patients insurance changed on 03/27/2019 no longer [place] but now [employer]. Letter that the had was copied and sent to admitting and . SIGNATURE: Addie Mcdaniel RN PATIENT NAME: Mauri Quinones DATE: March 31, 2019 TIME: 3:54 PM PAGER/CONTACT #: [phone] [facility] CONSULT PROGon 03-31-2019 CONSULT PROG HNO ID: [id number] Author: Mohsen Castellanos Service: Infectious Disease Author Type: Physician Type: Consult Progress Note Filed: 03/31/2019 1:16 PM Note Text: INFECTIOUS DISEASE CONSULT PROGRESS NOTE SERVICE DATE: 03/31/2019 SERVICE TIME: 1:05 PM Subjective INTERVAL HISTORY / PERTINENT Review of Systems Constitutional: Negative for chills and fever. Feels better, mental status reported to be back to baseline. Respiratory: Negative for cough, sputum production and shortness of breath. Gastrointestinal: Negative for abdominal pain. Genitourinary: Negative for dysuria (had some draiange around butler, has improved) and flank pain. Current Facility-Administered Medications Medication Dose Route Frequency - ampicillin-sulbactam 3 g in NaCl 0.9% 100 mL MB+/ADD-[place]oo (UNASYN) 3 g INTRAVENOUS q 6 H - acetaminophen 650 mg tab(s) (TYLENOL) 650 mg ORAL q 6 H PRN - insulin lispro 6 Units pen (rapid acting) (HumaLOG KWIKPEN) 6 Units SUBCUTANEOUS w MEALS - furosemide 40 mg tab(s) (LASIX) 40 mg ORAL BID 9a/5p - hydrALAZINE 50 mg tab(s) (APRESOLINE) 50 mg ORAL q 8 H - atorvastatin 40 mg tab(s) (LIPITOR) 40 mg ORAL AT BEDTIME - aspirin 81 mg chewable tab(s) 81 mg ORAL DAILY - polyethylene glycol 3350 17 g packet (MIRALAX, GLYCOLAX) 17 g ORAL DAILY - gabapentin 200 mg cap(s) (NEURONTIN) 200 mg ORAL DAILY - doxazosin 2 mg tab(s) (CARDURA) 2 mg ORAL BID - carvedilol 25 mg tab(s) (COREG) 25 mg ORAL BID w MEALS - latanoprost 0.005 % 1 Drop (XALATAN) 1 Drop BOTH EYES AT BEDTIME - NaCl 0.9% 3-5 mL 3-5 mL INTRAVENOUS q 12 H - heparin 5,000 Units injection 5,000 Units SUBCUTANEOUS q 12 H - ondansetron 4 mg tab(s) (ZOFRAN) 4 mg ORAL q 6 H PRN Or - ondansetron (PF) 4 mg injection (ZOFRAN) 4 mg INTRAVENOUS q 6 H PRN - magnesium hydroxide 400 mg/5 mL 30 mL (MOM) 30 mL ORAL DAILY PRN - bisacodyl 10 mg suppository (DULCOLAX) 10 mg RECTAL DAILY PRN - dextrose 40 % 15 g 15 g ORAL PRN Or - glucagon 1 mg injection (GLUCAGEN) 1 mg INTRAMUSCULAR PRN Or - dextrose 50 % 12.5 g injection 12.5 g INTRAVENOUS PRN - NaCl 0.9% 3-5 mL 3-5 mL INTRAVENOUS q 12 H - aluminum-magnesium hydroxide-simethicone 200-200-20 mg/5 mL 30 mL (MAALOX,MYLANTA,MAG-AL PLUS) 30 mL ORAL DAILY PRN - docusate sodium 100 mg cap(s) (COLACE) 100 mg ORAL BID PRN - ipratropium-albuterol 3 mL nebulizer solution (DUONEB) 3 mL INHALATION q 4 H PRN - insulin lispro pen (rapid acting) (HumaLOG KWIKPEN) SUBCUTANEOUS w MEALS - calcium acetate 667 mg tab(s) (CALPHRON) 667 mg ORAL TID w MEALS - insulin detemir U-100 15 Units injection (long acting) (LEVEMIR) 15 Units SUBCUTANEOUS DAILY (8 AM) Objective PHYSICAL EXAM: Vital Signs: BP 152/71 Pulse 70 Temp 36.7 ?C (98.1 ?F) (Oral) Resp 18 Ht 177.8 cm (5' 10) Wt 83.1 kg (183 lb 4.8 oz) SpO2 96% BMI 26.30 kg/m? Physical Exam HENT: Mouth/Throat: Oropharynx is clear and moist. Cardiovascular: Normal rate and regular rhythm. No murmur heard. Pulmonary/Chest: Effort normal and breath sounds normal. Abdominal: Soft. Bowel sounds are normal. He exhibits no distension. There is CVA tenderness (mild bilateral flank tenderness). Musculoskeletal: He exhibits edema (mils lower ext, improving). Skin: No rash noted. No erythema. Vitals reviewed. DATA: Diagnostic Tests Reviewed for Today's Visit: Most recent labs and imaging results. Micro: Urethral drainage- gm positives, Kimberlee Urine- E faecalis Recent Labs 03/31/19 0314 03/30/19 0330 03/29/19 1137 WBC -- 16.10* 14.70* HB -- 9.3* 9.7* HCT -- 30.5* 30.9* PLT -- 410* 401* NEUTNUM -- 13.22* 12.13* CREAT 1.81* 1.70* 1.77* No results found for: VANCORA Impression/Recommendations Active Problems: Uncontrolled type 2 diabetes mellitus without complication, with long-term current use of insulin ([facility]) POA: Yes Assessment AND Plan: UTI (urinary tract infection) POA: Unknown Assessment AND Plan: E faecalis. Possibly aggravated by urinary retention? Continue unasyn. Chronic combined systolic and diastolic CHF (congestive heart failure) ([facility]) POA: Yes Assessment AND Plan: Possible pneumonia LLL- continue unasyn. Check repeat cbc in am. GARRET (acute kidney injury) ([facility]) POA: Yes Assessment AND Plan: CKD (chronic kidney disease) stage 3, GFR 30-59 ml/min ([facility]) POA: Yes Assessment AND Plan: Delirium POA: Yes Assessment AND Plan: attributed to infection, improving today. If he continues to improve, will change unasyn to po augmentin tomorrow. Resolved Problems: * No resolved hospital problems. * SIGNATURE: Mohsen Castellanos MD PATIENT NAME: Mauri Quinones DATE: March 31, 2019 TIME: 1:05 PM PAGER/CONTACT #: [phone] Normal [facility] CONSULT PROG HNO ID: [id number] Author: Kiera Gonzalez Service: Endocrinology Author Type: Physician Type: Consult Progress Note Filed: 03/31/2019 9:35 AM Note Text: ENDOCRINOLOGY CONSULT PROGRESS NOTE SERVICE DATE: 03/31/2019 SERVICE TIME: 9:15 AM Subjective INTERVAL HPI: Following for DM type 2. Adm with severe neck and B/L shoulder pain. Has GARRET. Notes and orders reviewed. Pt has erratic po intake. Diet: DIET HEART HEALTHY Activity:bedrest Review of Systems: PAIN ASSESSMENT: still has neck and shoulder pain, better GENERAL: No weight loss, malaise or fevers. RESPIRATORY: Negative for cough, hemoptysis, wheezing, COPD, dyspnea or shortness of breath CARDIOVASCULAR: no CP, has edema GI: No nausea, vomiting, or diarrhea ENDOCRINE: Negative for cold or heat intolerance, polyuria or polydipsia. NEURO: no numbness/weakness extremities The remainder of the review of systems is negative. Current Facility-Administered Medications Medication Dose Route Frequency - doxazosin 2 mg tab(s) (CARDURA) 2 mg ORAL BID - carvedilol 25 mg tab(s) (COREG) 25 mg ORAL BID w MEALS - latanoprost 0.005 % 1 Drop (XALATAN) 1 Drop BOTH EYES AT BEDTIME - NaCl 0.9% 3-5 mL 3-5 mL INTRAVENOUS q 12 H - heparin 5,000 Units injection 5,000 Units SUBCUTANEOUS q 12 H - ondansetron 4 mg tab(s) (ZOFRAN) 4 mg ORAL q 6 H PRN Or - ondansetron (PF) 4 mg injection (ZOFRAN) 4 mg INTRAVENOUS q 6 H PRN - magnesium hydroxide 400 mg/5 mL 30 mL (MOM) 30 mL ORAL DAILY PRN - bisacodyl 10 mg suppository (DULCOLAX) 10 mg RECTAL DAILY PRN - dextrose 40 % 15 g 15 g ORAL PRN Or - glucagon 1 mg injection (GLUCAGEN) 1 mg INTRAMUSCULAR PRN Or - dextrose 50 % 12.5 g injection 12.5 g INTRAVENOUS PRN - NaCl 0.9% 3-5 mL 3-5 mL INTRAVENOUS q 12 H - aluminum-magnesium hydroxide-simethicone 200-200-20 mg/5 mL 30 mL (MAALOX,MYLANTA,MAG-AL PLUS) 30 mL ORAL DAILY PRN - docusate sodium 100 mg cap(s) (COLACE) 100 mg ORAL BID PRN - ipratropium-albuterol 3 mL nebulizer solution (DUONEB) 3 mL INHALATION q 4 H PRN - insulin lispro pen (rapid acting) (HumaLOG KWIKPEN) SUBCUTANEOUS w MEALS - calcium acetate 667 mg tab(s) (CALPHRON) 667 mg ORAL TID w MEALS - insulin detemir U-100 15 Units injection (long acting) (LEVEMIR) 15 Units SUBCUTANEOUS DAILY (8 AM) - atorvastatin 40 mg tab(s) (LIPITOR) 40 mg ORAL AT BEDTIME - aspirin 81 mg chewable tab(s) 81 mg ORAL DAILY - polyethylene glycol 3350 17 g packet (MIRALAX, GLYCOLAX) 17 g ORAL DAILY - gabapentin 200 mg cap(s) (NEURONTIN) 200 mg ORAL DAILY - insulin lispro 6 Units pen (rapid acting) (HumaLOG KWIKPEN) 6 Units SUBCUTANEOUS w MEALS - furosemide 40 mg tab(s) (LASIX) 40 mg ORAL BID 9a/5p - hydrALAZINE 50 mg tab(s) (APRESOLINE) 50 mg ORAL q 8 H - acetaminophen 650 mg tab(s) (TYLENOL) 650 mg ORAL q 6 H PRN - ampicillin-sulbactam 3 g in NaCl 0.9% 100 mL MB+/ADD-Tougaloo (UNASYN) 3 g INTRAVENOUS q 6 H Objective PHYSICAL EXAM: GENERAL: awake, no distress; has a cervical collar; hard of hearing (has hearing aid) SKIN: Skin color, texture, turgor normal. No rashes or lesions. OROPHARYNX: Lips, mucosa, and tongue normal. Teeth and gums normal. Oropharynx normal. LUNGS: Lungs clear to auscultation, Good diaphragmatic excursion CARDIAC: Normal S1 and S2; no rubs, murmurs, or gallops ABDOMEN: Abdomen soft, non-tender, BS normal, No masses or organomegaly EXTREMITIES: 1+ edema B/L LE, no clubbing or skin discoloration., No ulcers NEURO: Grossly normal cognition, motor function, and cranial nerves BP 152/71 Pulse 70 Temp (Src) 98.1 (Oral) Resp 18 Ht 5' 10 (1.78m) Wt 183 lb 4.8 oz (83.1kg) SpO2 96% BMI 26.30 kg/(m2). O2 Therapy: Room Air DATA: Diagnostic tests reviewed for today's visit: Most recent labs and imaging results. Last 24 hr BS reviewed. Recent Labs 03/31/19 0638 03/31/19 0314 03/30/19 1952 03/30/19 1559 03/30/19 1117 03/30/19 0651 03/30/19 0330 03/29/19 1137 GLUC -- 101* -- -- -- -- 129* -- 120* GLUCOSEMETER 130* -- 172* 125* 140* 154* -- < > -- < > = values in this interval not displayed. Assessment/Plan Type 2 diabetes mellitus, uncontrolled, without complication, with long-term current use of insulin ([facility]) POA: Yes Assessment AND Plan: 12-15 ears duration, on insulin for 5 years, Levemir 17 units qhs; off Metformin since 06/2018 due to CKD. A1c 10.4 (was 6.6 in 06/2018 before hip surgery) Checks BS q.o.d. at home, FBS 200-250's at home. BS 287 on adm, no Levemir given on 03/23 hs. Levemir resumed 10 units qam and Humalog 6 units tid started on 03/24 am. BS were high on 03/24; increased Levemir to 15 units qam and Humalog to 8 units tid with SSI on 03/25. BS better but occ <100, reduced Humalog to 6 units tid on 03/27. BS stable, cont Levemir 15 units qam and Humalog 6 units tid (held if pt not eating). Will need Rx for Humalog when goes home. Neck/sholuder pain, hx ankylosing spondylitis; pain management seeing pt GARRET (acute kidney injury) ([facility]) POA: Yes Assessment AND Plan: creat 1.81(1.70)(1.77)(1.86)(2.0 9)(2.33)(2.47); baseline 1.54; per renal CKD (chronic kidney disease) stage 3, GFR 30-59 ml/min ([facility]) POA: Yes Assessment AND Plan: creat 1.54 in 07/2018 Arteriosclerotic heart disease (ASHD) POA: Yes Assessment AND Plan: hx Hypertension, essential POA: Yes Assessment AND Plan: per caprice UTI (urinary tract infection) POA: Unknown Assessment AND Plan: on A/B Chronic combined systolic and diastolic CHF (congestive heart failure) ([facility]) POA: Yes Assessment AND Plan: hx SIGNATURE: Kiera Gonzalez MD PATIENT NAME: Mauri Quinones DATE: March 31, 2019 TIME: 9:35 AM PAGER: [phone] [facility] PROGRESSon 03-31-2019 PROGRESS HNO ID: [id number] Author: Bravo Lamb) Ervin Service: Nephrology Author Type: Physician Type: Progress Notes Filed: 03/31/2019 3:53 PM Note Text: CONSULT PROGRESS NOTE SERVICE TIME: 3:44 PM CONSULTING SERVICE: Nephrology Following for:ckd Subjective:no sob/cp no c/o today Current Facility-Administered Medications Medication Dose Route Frequency - doxazosin 2 mg tab(s) (CARDURA) 2 mg ORAL BID - carvedilol 25 mg tab(s) (COREG) 25 mg ORAL BID w MEALS - latanoprost 0.005 % 1 Drop (XALATAN) 1 Drop BOTH EYES AT BEDTIME - NaCl 0.9% 3-5 mL 3-5 mL INTRAVENOUS q 12 H - heparin 5,000 Units injection 5,000 Units SUBCUTANEOUS q 12 H - ondansetron 4 mg tab(s) (ZOFRAN) 4 mg ORAL q 6 H PRN Or - ondansetron (PF) 4 mg injection (ZOFRAN) 4 mg INTRAVENOUS q 6 H PRN - magnesium hydroxide 400 mg/5 mL 30 mL (MOM) 30 mL ORAL DAILY PRN - bisacodyl 10 mg suppository (DULCOLAX) 10 mg RECTAL DAILY PRN - dextrose 40 % 15 g 15 g ORAL PRN Or - glucagon 1 mg injection (GLUCAGEN) 1 mg INTRAMUSCULAR PRN Or - dextrose 50 % 12.5 g injection 12.5 g INTRAVENOUS PRN - NaCl 0.9% 3-5 mL 3-5 mL INTRAVENOUS q 12 H - aluminum-magnesium hydroxide-simethicone 200-200-20 mg/5 mL 30 mL (MAALOX,MYLANTA,MAG-AL PLUS) 30 mL ORAL DAILY PRN - docusate sodium 100 mg cap(s) (COLACE) 100 mg ORAL BID PRN - ipratropium-albuterol 3 mL nebulizer solution (DUONEB) 3 mL INHALATION q 4 H PRN - insulin lispro pen (rapid acting) (HumaLOG KWIKPEN) SUBCUTANEOUS w MEALS - calcium acetate 667 mg tab(s) (CALPHRON) 667 mg ORAL TID w MEALS - insulin detemir U-100 15 Units injection (long acting) (LEVEMIR) 15 Units SUBCUTANEOUS DAILY (8 AM) - atorvastatin 40 mg tab(s) (LIPITOR) 40 mg ORAL AT BEDTIME - aspirin 81 mg chewable tab(s) 81 mg ORAL DAILY - polyethylene glycol 3350 17 g packet (MIRALAX, GLYCOLAX) 17 g ORAL DAILY - gabapentin 200 mg cap(s) (NEURONTIN) 200 mg ORAL DAILY - insulin lispro 6 Units pen (rapid acting) (HumaLOG KWIKPEN) 6 Units SUBCUTANEOUS w MEALS - furosemide 40 mg tab(s) (LASIX) 40 mg ORAL BID 9a/5p - hydrALAZINE 50 mg tab(s) (APRESOLINE) 50 mg ORAL q 8 H - acetaminophen 650 mg tab(s) (TYLENOL) 650 mg ORAL q 6 H PRN - ampicillin-sulbactam 3 g in NaCl 0.9% 100 mL MB+/ADD-Tougaloo (UNASYN) 3 g INTRAVENOUS q 6 H PHYSICAL EXAM: Physical Exam Performed: BP 135/61 Pulse 65 Temp (Src) 98.1 (Oral) Resp 18 Ht 5' 10 (1.78m) Wt 183 lb 4.8 oz (83.1kg) SpO2 95% BMI 26.30 kg/(m2). O2 Therapy: Room Air BLOOD PRESSURE RANGE: Systolic (24hrs), Av , Min:143 , Max:181 ; Diastolic (24hrs), Av, Min:65, Max:88 GENERAL: well developed, no distress ENMT lips pink oral mucosa moist EYES sclerae white PERRL SKIN: warm dry No rashes or lesions LUNGS: Lungs clear to auscultation no wheezing no crackles, Good diaphragmatic excursion respirations are even and unlabored CARDIAC: S1 and S2; no rubs, murmurs, or gallops ABDOMEN: Abdomen soft, non-tender, BS present in all four quadrants EXTREMITIES: B/l LE edema, clubbing NEURO: Grossly normal cognition, motor function. Sensation grossly intact, Cranial nerves II-XII intact HEME no cervical or axillary lymphadenopathy, no petechiae DATA: Diagnostic tests reviewed for today's visit: Most recent labs and imaging results reviewed if applicable Labs: Recent Labs 03/30/19 0330 03/29/19 1137 WBC 16.10* 14.70* HB 9.3* 9.7* HCT 30.5* 30.9* MCV 95.6 93.4 PLT 410* 401* Recent Labs 03/31/19 0314 03/30/19 1205 03/30/19 0330 03/29/19 1137 NA 136 -- 138 139 K 5.2* 4.9 5.7* 4.8 CO2 23 -- 21 24 BUN 69* -- 71* 76* CREAT 1.81* -- 1.70* 1.77* CA 8.4* -- 8.4* 8.7 pH, Arterial Date Value Ref Range Status 04/13/2017 7.324 (L) 7.350 - 7.450 Final Specific [place], Ur Date Value Ref Range Status 03/23/2019 1.019 1.005 - 1.030 Final Glucose, Urine Date Value Ref Range Status 03/23/2019 500 (A) Negative mg/dL Final Bilirubin, Urine Date Value Ref Range Status 03/23/2019 NEGATIVE Negative Final Ketones, Urine Date Value Ref Range Status 03/23/2019 NEGATIVE Negative mg/dL Final Hemoglobin/Blood,Ur Date Value Ref Range Status 07/25/2018 Negative Negative Final Protein, Urine Date Value Ref Range Status 03/24/2019 473.4 (H) 0.0 - 11.9 mg/dL Final Urobilinogen, Urine Date Value Ref Range Status 03/23/2019 1.0 0.2 - 1.0 EU/dL Final Nitrites Date Value Ref Range Status 07/25/2018 Negative Negative Final Nitrites Urine Date Value Ref Range Status 03/23/2019 NEGATIVE Negative Final WBC, Urine Date Value Ref Range Status 03/23/2019 >900.0 (H) 0.0 - 5.0 /hpf Final Input / Output: 24 HR: Intake/Output Summary (Last 24 hours) at 03/31/2019 1544 Last data filed at 03/31/2019 1449 Gross per 24 hour Intake 240 ml Output 850 ml Net -610 ml IV Intake: Butler: CKD 3 likely DN at baseline Edema LE Proteinuria HTN Hyperphosphatemia UTI Continue lasix bid for now bp acceptable Hold ACEI or ARB till K better Scr 1.8 relatively stable but edema much better though still present Continue phoslo monitor phos Avoid nephrotoxins overdiuresis Chart reviewed. SIGNATURE: Bravo Mueller MD PATIENT NAME: Mauri Quinones PAGER: [phone] Normal [facility] PROGRESS HNO ID: [id number] Author: Ra Alcala Service: Hospital Medicine Author Type: Physician Type: Progress Notes Filed: 03/31/2019 11:09 AM Note Text: DEPARTMENT OF HOSPITAL MEDICINE PROGRESS NOTE SERVICE DATE: 03/31/2019 SERVICE TIME: 11:07 AM Hospital Medicine/Primary Attending: Ra Alcala MD NIGHT AND WEEKEND COVERAGE: After 7pm please page [phone] SUBJECTIVE: F/u UTI. No CP SOB NVD, mentation has returned completely to normal. OBJECTIVE: PHYSICAL EXAM: BP 152/71 Pulse 70 Temp (Src) 98.1 (Oral) Resp 18 Ht 5' 10 (1.78m) Wt 183 lb 4.8 oz (83.1kg) SpO2 96% BMI 26.30 kg/(m2). O2 Therapy: Room Air General - AANDOx3, NAD, Calm CV - RRR S1 S2, No M/R/G RESP - CTA B/L No wheezes, ronchi, rales ABD - soft, NT, ND +BS ENT- no icterus Neuro- No dysarthria MEDICATIONS: Current Facility-Administered Medications Medication Dose Route Frequency - doxazosin 2 mg tab(s) (CARDURA) 2 mg ORAL BID - carvedilol 25 mg tab(s) (COREG) 25 mg ORAL BID w MEALS - latanoprost 0.005 % 1 Drop (XALATAN) 1 Drop BOTH EYES AT BEDTIME - NaCl 0.9% 3-5 mL 3-5 mL INTRAVENOUS q 12 H - heparin 5,000 Units injection 5,000 Units SUBCUTANEOUS q 12 H - ondansetron 4 mg tab(s) (ZOFRAN) 4 mg ORAL q 6 H PRN Or - ondansetron (PF) 4 mg injection (ZOFRAN) 4 mg INTRAVENOUS q 6 H PRN - magnesium hydroxide 400 mg/5 mL 30 mL (MOM) 30 mL ORAL DAILY PRN - bisacodyl 10 mg suppository (DULCOLAX) 10 mg RECTAL DAILY PRN - dextrose 40 % 15 g 15 g ORAL PRN Or - glucagon 1 mg injection (GLUCAGEN) 1 mg INTRAMUSCULAR PRN Or - dextrose 50 % 12.5 g injection 12.5 g INTRAVENOUS PRN - NaCl 0.9% 3-5 mL 3-5 mL INTRAVENOUS q 12 H - aluminum-magnesium hydroxide-simethicone 200-200-20 mg/5 mL 30 mL (MAALOX,MYLANTA,MAG-AL PLUS) 30 mL ORAL DAILY PRN - docusate sodium 100 mg cap(s) (COLACE) 100 mg ORAL BID PRN - ipratropium-albuterol 3 mL nebulizer solution (DUONEB) 3 mL INHALATION q 4 H PRN - insulin lispro pen (rapid acting) (HumaLOG KWIKPEN) SUBCUTANEOUS w MEALS - calcium acetate 667 mg tab(s) (CALPHRON) 667 mg ORAL TID w MEALS - insulin detemir U-100 15 Units injection (long acting) (LEVEMIR) 15 Units SUBCUTANEOUS DAILY (8 AM) - atorvastatin 40 mg tab(s) (LIPITOR) 40 mg ORAL AT BEDTIME - aspirin 81 mg chewable tab(s) 81 mg ORAL DAILY - polyethylene glycol 3350 17 g packet (MIRALAX, GLYCOLAX) 17 g ORAL DAILY - gabapentin 200 mg cap(s) (NEURONTIN) 200 mg ORAL DAILY - insulin lispro 6 Units pen (rapid acting) (HumaLOG KWIKPEN) 6 Units SUBCUTANEOUS w MEALS - furosemide 40 mg tab(s) (LASIX) 40 mg ORAL BID 9a/5p - hydrALAZINE 50 mg tab(s) (APRESOLINE) 50 mg ORAL q 8 H - acetaminophen 650 mg tab(s) (TYLENOL) 650 mg ORAL q 6 H PRN - ampicillin-sulbactam 3 g in NaCl 0.9% 100 mL MB+/ADD-Tougaloo (UNASYN) 3 g INTRAVENOUS q 6 H DATA: Diagnostic tests reviewed for today's visit: CBC: No results for input(s): WBC, RBC, HB, HCT, PLT, MCV, MCH, MPV, RDW in the last 24 hours. Coags: No results for input(s): INR, APTT in the last 24 hours. Invalid input(s): PT BMP: Recent Labs 03/31/19313 NA 136 K 5.2* CHLOR 106 CO2 23 BUN 69* CREAT 1.81* GLUC 101* CMP: Recent Labs 03/31/19313 NA 136 K 5.2* CHLOR 106 CO2 23 BUN 69* CREAT 1.81* GLUC 101* CA 8.4* ANION 12 Cardiac Enzymes: No results for input(s): CK, MB, CKMB, TROPT in the last 24 hours. Liver Function, Amylase, Lipase: Recent Labs 03/31/19313 ALB 1.4* MG/PHOS: Recent Labs 03/31/19313 P 4.6 Renal Panel: Recent Labs 03/31/19313 CREAT 1.81* BUN 69* GLUC 101* CA 8.4* P 4.6 CHLOR 106 K 5.2* CO2 23 NA 136 Heme: No results for input(s): RETICP, ABSRETIC, LD, BOBY, FE, TIBC, TRANSFERSAT in the last 24 hours. Albumin/Creat Ratio (mg/g) Date Value 01/31/2018 3,068 (H) Assessment/Plan 1.) Neck Pain 2.) Pyuria?2/2 Enterococci UTI 3.) GARRET on CKD 3 4.) DM2 5.) Acute metabolic Encephalopathy 6.) HTN ? PLAN: - Increase insulin doses?effective - Mentation baseline -?Enterococci sensitive to ampicillin - Keep on Unasyn per ID to cover UTI and possible aspiration PNA - Neck pain needs pain control for sprain - Renal function better. Likely to start VANESSA soon for improvement of BP control VTE Prophylaxis: Lovenox 40mg Sub Q Daily Disposition: Extended Care Facility Plan of care discussed with: Patient SIGNATURE: Ra Alcala MD PATIENT NAME: Mauri Quinones DATE: March 31, 2019 TIME: 11:07 AM PAGER/CONTACT #: My Pager Normal [facility] Renal Panelon 03-31-2019 Creatinine [Mass/Vol] 1.81 mg/dL High 0.67-1.17 [facility] Comment on above: Performed By: #### E RTRP #### [place] [address] Phosphate [Mass/Vol] 4.6 mg/dL Normal 2.5-4.9 [facility] Comment on above: Performed By: #### E RTRP #### [facility] [address] [place], [place] [address] Albumin [Mass/Vol] 1.4 g/dL Low 3.4-5.0 [facility] Comment on above: Performed By: #### E RTRP #### [facility] [address] [place], [place] [address] Anion gap [Moles/Vol] 12 mmol/L Normal 8-16 [facility] Comment on above: Performed By: #### E RTRP #### [facility] [address] [place], [place] [address] CO2 [Moles/Vol] 23 mmol/L Normal 21-32 [facility] Comment on above: Performed By: #### E RTRP #### [facility] [address] [place], [place] [address] Glucose [Mass/Vol] 101 mg/dL High 70-99 [facility] Comment on above: Performed By: #### E RTRP #### [facility] [address] [place], [place] [address] Urea nitrogen [Mass/Vol] 69 mg/dL High 7-18 [facility] Comment on above: Performed By: #### E RTRP #### [facility] [address] [place], [place] [address] Calcium [Mass/Vol] 8.4 mg/dL Low 8.5-10.1 [facility] Comment on above: Performed By: #### E RTRP #### [facility] [address] [place], [place] [address] Chloride [Moles/Vol] 106 mmol/L Normal 98-107 [facility] Comment on above: Performed By: #### E RTRP #### [facility] [address] [place], [place] [address] Potassium [Moles/Vol] 5.2 mmol/L High 3.5-5.1 [facility] Comment on above: Performed By: #### E RTRP #### [place] [address] Sodium [Moles/Vol] 136 mmol/L Normal 136-145 [facility] Comment on above: Performed By: #### E RTRP #### [address] [address] THERAPY NTon 03-31-2019 THERAPY NT HNO ID: [id number] Author: Erica Downeyr/Savanna Ho OT Service: Occupational Therapy Author Type: Occupational Therapist Type: Therapy (PT/OT/Speech/Resp) Filed: 03/31/2019 11:58 AM Note Text: Occupational Therapy Treatment SERVICE DATE: 03/31/2019 SERVICE TIME: 1126 to 1142 ROOM: [place] [address] Recommended Discharge Disposition: Acute Rehab Recommended Discharge Disposition Comments: Rec changed from home to acute rehab due to impaired ADLs and functional mobility (mod assist for sit-stand transfer and max A for LB ADLs). Justification For Post Acute Needs: Anticipate patient will tolerate 3 hours of daily therapy at the time of admission to post-acute setting;Good family support;Good premorbid functional status;Living the community premorbidly;Motivated;Will ing to participate OT Recommendations to Nursing: ADL?s in chair;Bedside Commode for Toileting;OOB for meals;Transfer to Chair;With assist of 2 people Equipment: Wheeled Walker OT 6 Clicks Score: 15 Isolation Type: None ASSESSMENT: Rec changed from home to acute rehab due to change in function (ADLs, functional mobility, and cognition). Pt was significantly confused 2/2 infectious encephalopathy which has now resolved back to his baseline (A+Ox3). Pt requires mod assist for attempted sit-stand transfer off chair but limited by dizziness at this time and fatigue. Pt tolerated seated activities well this session and is motivated to go to rehab. Rec intensive OT to maximize patient's independence/strength in order to return to his baseline functioning. Patient Disposition at Start of Session: OOB in Chair;Call Emmanuel in Reach;Family Present Patient Disposition at End of Session: OOB in Chair;Call Emmanuel in Reach;Family Present Tolerance Limited By Fatigue;Physiologic Response(dizziness upon standing) Occupational Therapy Problem List: Safety Deficits;Impaired Self Care;Decreased Activity Tolerance;Education Deficit Patient /Caregiver Goals: Go Home;Care For Self Goals for Plan of Care: Lower Body Bathing with: Modified Independent Lower Body Dressing with: Modified Independent Toilet Hygiene with: Modified Independent Toilet Transfer with: Modified Independent Demonstrate Positive Coping Strategies with: Independent(pain management strategies) Demonstrate Competence With Education with: Verbal Cues Only(safety/judgment with ADLs) Transfer: Bed mobility with modified independence Progress Toward Goals: Not progressing toward goals Due To: Had an acute change in function since initial eval, was max A x2 and significant confusion 2/2 infection. Pt's mentation is now back to baseline but patient continues to require increased assist for mobility (mod assist for sit-stand transfer) and max A for LB ADLs. Rec is changed from home to acute rehab Rehab Potential: Good PLAN: Treatment Frequency (times per week): 5(1-5x/week) Current admission Treatment Interventions: Education;Self Care / Home Management Plan of Care developed with: Patient TREATMENT INTERVENTIONS: Therapy Diagnosis: Reduced mobility-other;Decreased activities of daily living (ADL) Interventions Provided: Therapeutic Activity (26514) Therapeutic Activity (37213) Treatment Minutes: 16 1 unit Skilled Intervention(s): Facilitated safe sit-stand transfer off chair to assess current functional mobility, activity tolerance, and ability to complete functional transfers (I.e. To bedside commode for toileting). Provided min verbal cuing for proper hand and placement prior to attempting stand. Provided mod assist to complete stand with wheeled walker support but patient unable to tolerate further mobility due to increase in dizziness upon standing, therefore returned to sitting. Once back in chair, provided opportunity for patient to complete functional activities (LB dressing and UE exercises) to increase ADL participation/independence and functional B UE strength for functional mobility. Educated pt on benefits of sitting up in the chair. Educated pt on fall prevention strategies, reinforcing the use of their call light / up with assistance for functional mobility; Pt left up in chair with family present, call light in reach upon OT exit. Total Timed Code Treatment Minutes: 16 Total Treatment Time (minutes): 16 SUBJECTIVE: Current Hospital Course: Chart reviewed; Pt with acute change in status (functional and cognition) since initial evaluation. AMS (infectious vs metabolic); neck pain 2/2 strain with mild degenerative spinal stenosis shown on MRI C-collar in place Reason for Occupational Therapy Consult: UTI, bilat shoulder/neck pain Relevant Past Medical History: CAD, ankylosing spondylitis, gout Patient Report: Pt sitting in chair, agreeable to session. 8/10 neck pain. Pt A+Ox3. Home Environment Patient Lives With: Family( and dtr) Assistance Available: 24 Hour Entry To Home: Stairs;With Rail Number Of Stairs Into Home: 1 Number Of Stairs To Bed/Bath: 0 Laundry: basement- pt can do it Equipment Owned: Wheeled Walker;Cane Prior Functional Level: Within Functional Limits Prior Functional Level Comments: independent, drives, OBJECTIVE: Cognition/Communication Deficits Responsiveness: Alert Follows Commands: 2-step Commands Cueing to Follow Commands: Minimum Attention Deficits: Distractible Executive Function Deficits: Judgement;Insight to Deficits;Problem Solving Judgement Deficit: Minimal impairment Insight to Deficits: Minimal impairment Problem Solving Deficit: Minimal impairment CURRENT FUNCTIONAL STATUS: Current Activities of Daily Living Assist Level Feeding Set Up Grooming Moderate Assistance(seated only) Bathing Upper Body Moderate Assistance Bathing Lower Body Maximal Assistance Dressing Upper Body Minimal Assistance Dressing Lower Body Maximal Assistance Toileting Maximal Assistance Functional Mobility Assist Level Rolling Supine to Sit Sit to Supine Scooting Sit to Stand Moderate Assistance Stand to Sit Moderate Assistance Bed to Chair Toilet/Commode Functional Mobility Range of Motion: ROM Limitation Comments ROM Limitation Comments: limited bilat shoulders to 90 deg due to pain; distally intact Strength: Strength Limitation Comments Strength Limitation Comments: Bilat shoulders n/t due to pain, grossly intact Activity Tolerance: Sitting Activity;Standing Activity Sitting Activity: OOB in chair; UE exercises; LB dressing Sitting Activity Tolerance (in minutes): 7 Standing Activity: Attempted sit-stand transfer but unable to complete fully 2/2 dizziness Standing Activity Tolerance (in minutes): 1 Please see discipline specific clinical documentation flowsheet for complete details for this therapy evaluation/treatment. SIGNATURE: SLIM Trinidad/Farhana PATIENT NAME: Mauri Quinones DATE: March 31, 2019 TIME: 11:51 AM Normal [facility] THERAPY NT HNO ID: [id number] Author: Elizabeth Brown Service: Physical Therapy Author Type: Industrial Sewer Type: Therapy (PT/OT/Speech/Resp) Filed: 03/31/2019 9:20 AM Note Text: -- Attestation signed by Vinny MarquezPt) JD Benitez at 03/31/2019 4:28 PM I reviewed and agree with the documentation corresponding to this therapy visit. SIGNATURE: Vinny Benitez PT DATE: March 31, 2019 TIME: 4:28 PM -- Physical Therapy Treatment SERVICE DATE: 03/31/2019 SERVICE TIME: 0835 to 0900 ROOM: [id number] Recommended Discharge Disposition: Acute Rehab Recommended Discharge Disposition Comments: pt with siginificant change in status--needing max Ax2 to achieve upright at EOB and max A to sit EOB Justification For Post Acute Needs: Medically complex;Anticipate patient will tolerate 3 hours of daily therapy at the time of admission to post-acute setting Anticipated Discharge Needs: (NA) Physical Assist at Home for: (NA) PT Recommendations to Nursing: Not appropriate for OOB activity at this time Device: (NA) PT 6 Clicks Score: 12 Isolation Type: None ASSESSMENT : Patient Disposition at Start of Session: Supine in Bed;Call Emmanuel in Reach;Bed Alarm Patient Disposition at End of Session: OOB in Chair;Call Emmanuel in Reach Tolerated Full Session Without limitations Patient making progress toward goals this session with improvement with bed mobility and transfer to chair. Patient still requires increase amount of assist of at least 1 staff member for safety/balance. Limited with gait distance due to pain and fatigue. Reinforced use of call light for assistance. Per staff, chair alarm not needed. Goals ongoing. Physical Therapy Problem List: Pain;Functional Mobility Impairment;Decreased Range Of Motion Patient /Caregiver Goals: Walk;Go Home Goals for Plan of Care: Able to perform HEP with: (NA) Transfer supine to/from sit with: Contact Guard Assistance Transfer sit to/from stand with: Contact Guard Assistance Ambulate with: Contact Guard Assistance Distance: 40x2 Device: Wheeled Walker Transfer: stand pivot min A Goal: 2x10 reps bilat LE AROM exercises Progress Toward Goals: Progressing as expected Due To: acuity; change in mental status Rehab Potential: Good PLAN: Treatment Frequency (times per week): 5(1-5) Current admission Treatment Interventions: Education;Joint Mobility;Strengthening;Fun ctional Mobility Training;Balance Training Plan of Care developed with: Patient;Family TREATMENT INTERVENTIONS: Interventions Provided: Therapeutic Exercise (11810);Therapeutic Activity (86515) Therapeutic Exercise (85244) Treatment Minutes: 13 1 unit Skilled Intervention(s): Instruction in therapeutic exercise for both legs: ankle pump, quad set, glute set, adductor set, hip abduction/adduction, heel slide, short arc quad, and long arc quad x 12 reps with min assist with hip abduction and heel slide. Verbal and tactile cuing provided for slower pace and maintain proper alignment. Therapeutic Activity (02249) Treatment Minutes: 12 1 unit Skilled Intervention(s): Instructed patient in log roll technique, Instructed patient in supine to sit pushing with upper extremities to sit up with head of bed at 25 degrees. Patient declined to practice from flat surface due to increase in neck/back pain. Patient requires cues/assist to avoid twisting and to get his hand onto the rail. Movement is slow and patient required cues at least 65% for proper technique. Instruction in sit to and from stand technique with proper hand placement and body positioning at edge of bed/chair. Patient completed 4 trials with emphasis on getting his nose over his toes and greater recruitment of quads/hams to help with standing. Education with use of [place] cervical collar, how to don/doff. Patient requires max assist to manage/align brace. Worked on pre gait/transfers weight bearing and stepping with use of wheeled walker for support. Cues/assist for more erect posture and to keep within walker frame. Movement is slow and mildly uncoordinated with movement/placement of his feet. Patient unsteady and requires assist for safe management of walker. Total Timed Code Treatment Minutes: 25 Total Treatment Time (minutes): 25 SUBJECTIVE: Current Hospital Course: Chart reviewed and no significant medical updates relevant to therapy were noted Reason for Physical Therapy Consult : eval Relevant Past Medical History: CAD, ankylosing spondylitis, gout Patient Report: Denied increase in pain. Home Environment Patient Lives With: Family( and dtr) Assistance Available: 24 Hour Entry To Home: Stairs;With Rail Number Of Stairs Into Home: 1 Number Of Stairs To Bed/Bath: 0 Laundry: basement- pt can do it Equipment Owned: Wheeled Walker;Cane Prior Functional Level: Within Functional Limits Prior Functional Level Comments: independent, drives, OBJECTIVE: CURRENT FUNCTIONAL STATUS: Current Functional Mobility Assist Level Additional Information Rolling Minimal Assistance Supine to Sit Maximal Assistance(HOB at 25 degrees) Sit to Supine Scooting Contact Guard Assistance(to edge of bed) Sit to Stand Moderate Assistance Stand to Sit Moderate Assistance Bed to Chair Moderate Assistance Bed To Chair Transfer Type: Stand Pivot Bed To Chair Transfer Equipment: Wheeled Walker Toilet/Commode Gait Moderate Assistance Gait Device: Wheeled Walker Gait Distance (feet): 2-3ft Stairs Curb Step Car Transfer General Gait Deviations: Gaby decreased;Lateral sway increased;Step length decreased;Loss of Balance;Difficulty changing direction/turning Balance: Static Sitting;Static Standing;Dynamic Standing Static Sitting Balance: Contact Guard Assistance Static Standing Balance: Minimal Assistance Dynamic Standing Balance: Moderate Assistance Activity Tolerance: Sitting Activity;Standing Activity Sitting Activity: edge of bed Sitting Activity Tolerance (in minutes): 4 Standing Activity: pre gait/transfer Standing Activity Tolerance (in minutes): 3 JH-HLM: 5: Standing (1 or more minutes) Please see discipline specific clinical documentation flowsheet for complete details for this therapy evaluation/treatment. SIGNATURE: Elizabeth Brown PTA PATIENT NAME: Mauri Quinones DATE: March 31, 2019 TIME: 9:11 AM Normal [facility] CONSULT PROGon 03-30-2019 CONSULT PROG HNO ID: [id number] Author: Kavitha Fofana Service: Endocrinology Author Type: Physician Type: Consult Progress Note Filed: 03/30/2019 4:22 PM Note Text: ENDOCRINOLOGY CONSULT PROGRESS NOTE SERVICE DATE: 03/30/2019 SERVICE TIME: 3:00pm Subjective INTERVAL HPI: Following for DM type 2. Adm with severe neck and B/L shoulder pain. Has GARRET. Notes and orders reviewed. Today with improved mentation; poor po intake; at bedside; D/W RN Diet: DIET HEART HEALTHY Activity:bedrest Review of Systems: PAIN ASSESSMENT: has neck and shoulder pain, better overall GENERAL: No weight loss, malaise or fevers. RESPIRATORY: Negative for cough, hemoptysis, wheezing, COPD, dyspnea or shortness of breath CARDIOVASCULAR: no CP, has edema GI: No nausea, vomiting, or diarrhea ENDOCRINE: Negative for cold or heat intolerance, polyuria or polydipsia. NEURO: no numbness/weakness extremities The remainder of the review of systems is negative. Current Facility-Administered Medications Medication Dose Route Frequency - doxazosin 2 mg tab(s) (CARDURA) 2 mg ORAL BID - carvedilol 25 mg tab(s) (COREG) 25 mg ORAL BID w MEALS - latanoprost 0.005 % 1 Drop (XALATAN) 1 Drop BOTH EYES AT BEDTIME - NaCl 0.9% 3-5 mL 3-5 mL INTRAVENOUS q 12 H - heparin 5,000 Units injection 5,000 Units SUBCUTANEOUS q 12 H - ondansetron 4 mg tab(s) (ZOFRAN) 4 mg ORAL q 6 H PRN Or - ondansetron (PF) 4 mg injection (ZOFRAN) 4 mg INTRAVENOUS q 6 H PRN - magnesium hydroxide 400 mg/5 mL 30 mL (MOM) 30 mL ORAL DAILY PRN - bisacodyl 10 mg suppository (DULCOLAX) 10 mg RECTAL DAILY PRN - dextrose 40 % 15 g 15 g ORAL PRN Or - glucagon 1 mg injection (GLUCAGEN) 1 mg INTRAMUSCULAR PRN Or - dextrose 50 % 12.5 g injection 12.5 g INTRAVENOUS PRN - NaCl 0.9% 3-5 mL 3-5 mL INTRAVENOUS q 12 H - aluminum-magnesium hydroxide-simethicone 200-200-20 mg/5 mL 30 mL (MAALOX,MYLANTA,MAG-AL PLUS) 30 mL ORAL DAILY PRN - docusate sodium 100 mg cap(s) (COLACE) 100 mg ORAL BID PRN - ipratropium-albuterol 3 mL nebulizer solution (DUONEB) 3 mL INHALATION q 4 H PRN - insulin lispro pen (rapid acting) (HumaLOG KWIKPEN) SUBCUTANEOUS w MEALS - calcium acetate 667 mg tab(s) (CALPHRON) 667 mg ORAL TID w MEALS - insulin detemir U-100 15 Units injection (long acting) (LEVEMIR) 15 Units SUBCUTANEOUS DAILY (8 AM) - atorvastatin 40 mg tab(s) (LIPITOR) 40 mg ORAL AT BEDTIME - aspirin 81 mg chewable tab(s) 81 mg ORAL DAILY - polyethylene glycol 3350 17 g packet (MIRALAX, GLYCOLAX) 17 g ORAL DAILY - gabapentin 200 mg cap(s) (NEURONTIN) 200 mg ORAL DAILY - insulin lispro 6 Units pen (rapid acting) (HumaLOG KWIKPEN) 6 Units SUBCUTANEOUS w MEALS - furosemide 40 mg tab(s) (LASIX) 40 mg ORAL BID 9a/5p - hydrALAZINE 50 mg tab(s) (APRESOLINE) 50 mg ORAL q 8 H - vancomycin 1.25 g in D5W 250 mL (VANCOCIN) 1.25 g INTRAVENOUS q 24 HR - acetaminophen 650 mg tab(s) (TYLENOL) 650 mg ORAL q 6 H PRN Objective PHYSICAL EXAM: GENERAL: awake, no distress SKIN: Skin color, texture, turgor normal. No rashes or lesions. OROPHARYNX: Lips, mucosa, and tongue normal. Teeth and gums normal. Oropharynx normal. LUNGS: Lungs clear to auscultation, Good diaphragmatic excursion CARDIAC: Normal S1 and S2; no rubs, murmurs, or gallops ABDOMEN: Abdomen soft, non-tender, BS normal, No masses or organomegaly EXTREMITIES: 1+ edema B/L LE, no clubbing or skin discoloration., No ulcers NEURO: Grossly normal cognition, motor function, and cranial nerves BP 147/58 Pulse 64 Temp (Src) 98.6 (Oral) Resp 20 Ht 5' 10 (1.78m) Wt 174 lb 8 oz (79.2kg) SpO2 97% BMI 25.04 kg/(m2). O2 Therapy: Room Air DATA: Diagnostic tests reviewed for today's visit: Most recent labs and imaging results. Last 24 hr BS reviewed. Recent Labs 03/30/19 1559 03/30/19 1117 03/30/19 0651 03/30/19 0330 03/29/19 2109 03/29/19 1617 03/29/19 1137 03/28/19 0500 GLUC -- -- -- 129* -- -- 120* -- 114* GLUCOSEMETER 125* 140* 154* -- 142* 105* -- < > -- < > = values in this interval not displayed. Assessment/Plan Type 2 diabetes mellitus, uncontrolled, without complication, with long-term current use of insulin ([facility]) POA: Yes Assessment AND Plan: 12-15 ears duration, on insulin for 5 years, Levemir 17 units qhs; off Metformin since 06/2018 due to CKD. A1c 10.4 (was 6.6 in 06/2018 before hip surgery) Checks BS q.o.d. at home, FBS 200-250's at home. BS 287 on adm, no Levemir given on 03/23 hs. Levemir resumed 10 units qam and Humalog 6 units tid started on 03/24 am. BS were high on 03/24; increased Levemir to 15 units qam and Humalog to 8 units tid with SSI on 03/25. BS better but occ <100, reduced Humalog to 6 units tid on 03/27. BS stable, cont Levemir 15 units qam and Humalog 6 units tid (held as pt not eating). Will need Rx for Humalog when goes home. Neck/sholuder pain, hx ankylosing spondylitis; pain management seeing pt GARRET (acute kidney injury) ([facility]) POA: Yes Assessment AND Plan: creat 1.70(1.77)(1.86)(2.09)(2.3 3)(2.47); baseline 1.54; per renal CKD (chronic kidney disease) stage 3, GFR 30-59 ml/min ([facility]) POA: Yes Assessment AND Plan: creat 1.54 in 07/2018 Arteriosclerotic heart disease (ASHD) POA: Yes Assessment AND Plan: hx Hypertension, essential POA: Yes Assessment AND Plan: per caprice UTI (urinary tract infection) POA: Unknown Assessment AND Plan: on A/B Chronic combined systolic and diastolic CHF (congestive heart failure) ([facility]) POA: Yes Assessment AND Plan: hx SIGNATURE: Kavitha Fofana MD PATIENT NAME: Mauri Quinones DATE: March 30, 2019 TIME: 1:58 PM PAGER: [phone] Normal [facility] Cult and Smr ROSARIO and AERon 0 03-30-2019 Cult and Smr ROSARIO and AER Test performed at [facility] Rare Mixed anaerobic douglas. No Bacteroides fragilis group isolated. No Clostridium perfringens isolated. No organisms seen Few Polymorphonuclear leukocytes Rare Squamous epithelial cells ORGANISM: *Gram Positive Organisms (ID: 1) Rare Mixed skin douglas. ORGANISM: *Kimberlee albicans (ID: 2) Rare Normal [facility] Comment on above: Performed By: #### E RTRP #### [facility] [address] [place] [address] Hemogram/Diffon 03-30-2019 Abs Immature Grans 0.24 thou/cmm High 0.00-0.05 [facility] Comment on above: Performed By: #### E RTRP #### [facility] [address] [place] [address] Abs Neut (ANC) 13.22 thou/cmm High 1.78-5.38 [facility] Comment on above: Performed By: #### E RTRP #### [facility] [address] [address] Abs. Baso 0.06 thou/cmm Normal 0.01-0.08 [facility] Comment on above: Performed By: #### E RTRP #### [facility] [address] [address] Abs. Bucks 1.63 thou/cmm High 0.30-0.82 [facility] Comment on above: Performed By: #### E RTRP #### [facility] [address] [place], [place] [address] Basophils/100 WBC (Bld) 0.4 % Normal [facility] Comment on above: Performed By: #### E RTRP #### [facility] [address] [address] Eosinophils (Bld) [#/Vol] 0.18 thou/cmm Normal 0.04-0.54 [facility] Comment on above: Performed By: #### E RTRP #### [facility] [address] [place] [address] Eosinophils/100 WBC (Bld) 1.1 % Normal [facility] Comment on above: Performed By: #### E RTRP #### [facility] [address] [place] [address] Immature Grans 1.50 % Normal [facility] Comment on above: Performed By: #### E RTRP #### [facility] [address] [place], [place] [address] Lymphocytes (Bld) [#/Vol] 0.77 thou/cmm Low 0.84-2.85 [facility] Comment on above: Performed By: #### E RTRP #### [facility] [address] [place], [place] [address] Lymphocytes/100 WBC (Bld) 4.8 % Normal [facility] Comment on above: Performed By: #### E RTRP #### [facility] [address] [place], [place] [address] Monocytes/100 WBC (Bld) 10.1 % Normal [facility] Comment on above: Performed By: #### E RTRP #### [facility] [address] [place] [address] Seg Neutrophil 82.1 % Normal [facility] Comment on above: Performed By: #### E RTRP #### [facility] [address] [place] [address] Erythrocyte distribution width (RBC) [Ratio] 14.0 % Normal 11.6-14.4 [facility] Comment on above: Performed By: #### E RTRP #### [facility] [address] [address] Hematocrit (Bld) [Volume fraction] 30.5 % Low 40.1-51.0 [facility] Comment on above: Performed By: #### E RTRP #### [facility] [address] [address] Hemoglobin (Bld) [Mass/Vol] 9.3 g/dL Low 13.7-17.5 [facility] Comment on above: Performed By: #### E RTRP #### [facility] [address] [address] MCH (RBC) [Entitic mass] 29.2 pg Normal 25.7-32.2 [facility] Comment on above: Performed By: #### E RTRP #### [facility] [address] [place], [place] [address] MCHC (RBC) [Mass/Vol] 30.5 % Low 32.3-36.5 [facility] Comment on above: Performed By: #### E RTRP #### [facility] [address] [place] [id number] MCV (RBC) [Entitic vol] 95.6 fL Normal 83.2-95.6 [facility] Comment on above: Performed By: #### E RTRP #### [facility] [address] [place] [address] Platelet mean volume (Bld) [Entitic vol] 9.0 fL Normal 8.7-12.0 [facility] Comment on above: Performed By: #### E RTRP #### [facility] [address] [place] [address] Platelets (Bld) [#/Vol] 410 thou/cmm High 141-365 [facility] Comment on above: Performed By: #### E RTRP #### [facility] [address] [place] [address] RBC (Bld) [#/Vol] 3.19 mil/cmm Low 4.63-6.08 [facility] Comment on above: Performed By: #### E RTRP #### [facility] [address] [place] [address] RDW SD 48.9 fl High 36.1-45.8 [facility] Comment on above: Performed By: #### E RTRP #### [facility] [address] [place] [address] WBC (Bld) [#/Vol] 16.10 thou/cmm High 4.23-9.07 [facility] Comment on above: Performed By: #### E RTRP #### [facility] [address] [place] [address] PROGRESSon 03-30-2019 PROGRESS HNO ID: [id number] Author: Cirilo Vitale III Service: Infectious Disease Author Type: Physician Type: Progress Notes Filed: 03/30/2019 4:44 PM Note Text: Enterococcus in prior urine culture is ampicillin susceptible CXR read as cardiomegaly. Difficult time assessing LLL for me. Doesn't look like there is an infiltrat but did have crackles in LLL Change vanco to unasyn. This will cover aspiration in as well as the enterococcus SIGNATURE: Cirilo Vitale III, MD PATIENT NAME: Mauri Quinones DATE: March 30, 2019 TIME: 4:44 PM PAGER/CONTACT #: [phone] . Normal [facility] PROGRESS HNO ID: [id number] Author: Ra Alcala Service: Hospital Medicine Author Type: Physician Type: Progress Notes Filed: 03/30/2019 1:00 PM Note Text: DEPARTMENT OF HOSPITAL MEDICINE PROGRESS NOTE SERVICE DATE: 03/30/2019 SERVICE TIME: 12:53 PM Hospital Medicine/Primary Attending: Ra Alcala MD NIGHT AND WEEKEND COVERAGE: After 7pm please page [phone] SUBJECTIVE: F/u AMS. No CP SOB NVD. Mentation better. OBJECTIVE: PHYSICAL EXAM: BP 153/65 Pulse 83 Temp (Src) 98.6 (Oral) Resp 18 Ht 5' 10 (1.78m) Wt 174 lb 8 oz (79.2kg) SpO2 96% BMI 25.04 kg/(m2). O2 Therapy: Room Air General - AANDOx3, NAD, Calm CV - RRR S1 S2, No M/R/G RESP - CTA B/L No wheezes, ronchi, rales ABD - soft, NT, ND +BS ENT- no icterus Neuro- No dysarthria MEDICATIONS: Current Facility-Administered Medications Medication Dose Route Frequency - doxazosin 2 mg tab(s) (CARDURA) 2 mg ORAL BID - carvedilol 25 mg tab(s) (COREG) 25 mg ORAL BID w MEALS - latanoprost 0.005 % 1 Drop (XALATAN) 1 Drop BOTH EYES AT BEDTIME - NaCl 0.9% 3-5 mL 3-5 mL INTRAVENOUS q 12 H - heparin 5,000 Units injection 5,000 Units SUBCUTANEOUS q 12 H - ondansetron 4 mg tab(s) (ZOFRAN) 4 mg ORAL q 6 H PRN Or - ondansetron (PF) 4 mg injection (ZOFRAN) 4 mg INTRAVENOUS q 6 H PRN - magnesium hydroxide 400 mg/5 mL 30 mL (MOM) 30 mL ORAL DAILY PRN - bisacodyl 10 mg suppository (DULCOLAX) 10 mg RECTAL DAILY PRN - dextrose 40 % 15 g 15 g ORAL PRN Or - glucagon 1 mg injection (GLUCAGEN) 1 mg INTRAMUSCULAR PRN Or - dextrose 50 % 12.5 g injection 12.5 g INTRAVENOUS PRN - NaCl 0.9% 3-5 mL 3-5 mL INTRAVENOUS q 12 H - aluminum-magnesium hydroxide-simethicone 200-200-20 mg/5 mL 30 mL (MAALOX,MYLANTA,MAG-AL PLUS) 30 mL ORAL DAILY PRN - docusate sodium 100 mg cap(s) (COLACE) 100 mg ORAL BID PRN - ipratropium-albuterol 3 mL nebulizer solution (DUONEB) 3 mL INHALATION q 4 H PRN - insulin lispro pen (rapid acting) (HumaLOG KWIKPEN) SUBCUTANEOUS w MEALS - calcium acetate 667 mg tab(s) (CALPHRON) 667 mg ORAL TID w MEALS - insulin detemir U-100 15 Units injection (long acting) (LEVEMIR) 15 Units SUBCUTANEOUS DAILY (8 AM) - atorvastatin 40 mg tab(s) (LIPITOR) 40 mg ORAL AT BEDTIME - aspirin 81 mg chewable tab(s) 81 mg ORAL DAILY - polyethylene glycol 3350 17 g packet (MIRALAX, GLYCOLAX) 17 g ORAL DAILY - gabapentin 200 mg cap(s) (NEURONTIN) 200 mg ORAL DAILY - insulin lispro 6 Units pen (rapid acting) (HumaLOG KWIKPEN) 6 Units SUBCUTANEOUS w MEALS - furosemide 40 mg tab(s) (LASIX) 40 mg ORAL BID 9a/5p - hydrALAZINE 50 mg tab(s) (APRESOLINE) 50 mg ORAL q 8 H - vancomycin 1.25 g in D5W 250 mL (VANCOCIN) 1.25 g INTRAVENOUS q 24 HR - lactated ringers infusion 75 mL/hr INTRAVENOUS CONTINUOUS - acetaminophen 650 mg tab(s) (TYLENOL) 650 mg ORAL q 6 H PRN DATA: Diagnostic tests reviewed for today's visit: CBC: Recent Labs 03/30/19 0330 WBC 16.10* RBC 3.19* HB 9.3* HCT 30.5* PLT 410* MCV 95.6 MCH 29.2 MPV 9.0 RDW 14.0 Coags: No results for input(s): INR, APTT in the last 24 hours. Invalid input(s): PT BMP: Recent Labs 03/30/19 1205 03/30/19 0330 NA -- 138 K 4.9 5.7* CHLOR -- 109* CO2 -- 21 BUN -- 71* CREAT -- 1.70* GLUC -- 129* CMP: Recent Labs 03/30/19 1205 03/30/19 0330 NA -- 138 K 4.9 5.7* CHLOR -- 109* CO2 -- 21 BUN -- 71* CREAT -- 1.70* GLUC -- 129* CA -- 8.4* ANION -- 14 Cardiac Enzymes: No results for input(s): CK, MB, CKMB, TROPT in the last 24 hours. Liver Function, Amylase, Lipase: Recent Labs 03/30/19 0330 ALB 1.4* MG/PHOS: Recent Labs 03/30/19 0330 P 4.7 Renal Panel: Recent Labs 03/30/19 1205 03/30/19 0330 CREAT -- 1.70* BUN -- 71* GLUC -- 129* CA -- 8.4* P -- 4.7 CHLOR -- 109* K 4.9 5.7* CO2 -- 21 NA -- 138 Heme: No results for input(s): RETICP, ABSRETIC, LD, BOBY, FE, TIBC, TRANSFERSAT in the last 24 hours. Albumin/Creat Ratio (mg/g) Date Value 01/31/2018 3,068 (H) Assessment/Plan 1.) Neck Pain 2.) Pyuria 2/2 Enterococci UTI 3.) GARRET on CKD 3 4.) DM2 5.) Acute metabolic Encephalopathy ? PLAN: - Increase insulin doses?effective - Mentation better. - Enterococci no sensitivities. - Keep on Vanco until cultures back final - Neck pain needs pain control for sprain VTE Prophylaxis: Lovenox 40mg Sub Q Daily Disposition: Extended Care Facility Plan of care discussed with: Patient SIGNATURE: Ra Alcala MD PATIENT NAME: Mauri Quinones DATE: March 30, 2019 TIME: 12:53 PM PAGER/CONTACT #: My Pager Normal [facility] PROGRESS HNO ID: [id number] Author: Rj Anderson Service: Nephrology Author Type: Physician Type: Progress Notes Filed: 03/30/2019 11:26 AM Note Text: Nephrology Progress Note Following for GARRET on CKD. Pt denies CP, SOB. Still has neck pain. Poor oral intake per pt's (Yun). Poor appetite. Current Inpatient Medications: Current Facility-Administered Medications Ordered in Epic: lactated ringers infusion 75 mL/hr INTRAVENOUS CONTINUOUS Dakota Mathias Last Rate: 75 mL/hr at 03/30/19 0608 75 mL/hr at 03/30/19 0608 acetaminophen 650 mg tab(s) (TYLENOL) 650 mg ORAL q 6 H PRN Dakota Mathias 650 mg at 03/29/19 1721 vancomycin 1.25 g in D5W 250 mL (VANCOCIN) 1.25 g INTRAVENOUS q 24 HR Ra Alcala Last Rate: 125 mL/hr at 03/29/19 1710 1.25 g at 03/29/19 1710 insulin lispro 6 Units pen (rapid acting) (HumaLOG KWIKPEN) 6 Units SUBCUTANEOUS w MEALS Kiera Midha 4 Units at 03/30/19 0831 furosemide 40 mg tab(s) (LASIX) 40 mg ORAL BID 9a/5p Bravo Lamb) Ervin 40 mg at 03/30/19 0828 hydrALAZINE 50 mg tab(s) (APRESOLINE) 50 mg ORAL q 8 H Bravo Lamb) Ervin 50 mg at 03/30/19 0608 atorvastatin 40 mg tab(s) (LIPITOR) 40 mg ORAL AT BEDTIME Mariela Schaef 40 mg at 03/29/192005 aspirin 81 mg chewable tab(s) 81 mg ORAL DAILY Mariela Schaef 81 mg at 03/30/19 0829 polyethylene glycol 3350 17 g packet (MIRALAX, GLYCOLAX) 17 g ORAL DAILY Mariela Schaef 17 g at 03/30/19 0829 gabapentin 200 mg cap(s) (NEURONTIN) 200 mg ORAL DAILY Lara K Scantling 200 mg at 03/30/19 0828 doxazosin 2 mg tab(s) (CARDURA) 2 mg ORAL BID Dante Myers 2 mg at 03/30/19 0829 carvedilol 25 mg tab(s) (COREG) 25 mg ORAL BID w MEALS Dante Myers 25 mg at 03/30/19 08 latanoprost 0.005 % 1 Drop (XALATAN) 1 Drop BOTH EYES AT BEDTIME Dante Myers 1 Drop at 03/29/19 210 NaCl 0.9% 3-5 mL 3-5 mL INTRAVENOUS q 12 H Dante Myers 3 mL at 03/26/19 0832 heparin 5,000 Units injection 5,000 Units SUBCUTANEOUS q 12 H Dante Myers 5,000 Units at 03/30/19 0834 ondansetron 4 mg tab(s) (ZOFRAN) 4 mg ORAL q 6 H PRN Dante Myers Or ondansetron (PF) 4 mg injection (ZOFRAN) 4 mg INTRAVENOUS q 6 H PRN Dante Myers magnesium hydroxide 400 mg/5 mL 30 mL (MOM) 30 mL ORAL DAILY PRN Dante Myers bisacodyl 10 mg suppository (DULCOLAX) 10 mg RECTAL DAILY PRN Dante Myers dextrose 40 % 15 g 15 g ORAL PRN Dante Myers Or glucagon 1 mg injection (GLUCAGEN) 1 mg INTRAMUSCULAR PRN Dante Myers Or dextrose 50 % 12.5 g injection 12.5 g INTRAVENOUS PRN Dante Myers NaCl 0.9% 3-5 mL 3-5 mL INTRAVENOUS q 12 H Vandana (Dietary Internship) Jatin 3 mL at 03/29/19 2105 aluminum-magnesium hydroxide-simethicone 200-200-20 mg/5 mL 30 mL (MAALOX,MYLANTA,MAG-AL PLUS) 30 mL ORAL DAILY PRN Vandana (Dietary Internship) Jatin docusate sodium 100 mg cap(s) (COLACE) 100 mg ORAL BID PRN Vandana (Dietary Internship) Jatin ipratropium-albuterol 3 mL nebulizer solution (DUONEB) 3 mL INHALATION q 4 H PRN Vandana (Dietary Internship) Jatin insulin lispro pen (rapid acting) (HumaLOG KWIKPEN) SUBCUTANEOUS w MEALS Kiera Midha 1 Units at 03/30/19 0830 calcium acetate 667 mg tab(s) (CALPHRON) 667 mg ORAL TID w MEALS Donavan (Res) MD Nahomi 667 mg at 03/30/19 0828 insulin detemir U-100 15 Units injection (long acting) (LEVEMIR) 15 Units SUBCUTANEOUS DAILY (8 AM) Kiera Midha 15 Units at 03/30/19 0830 No current [facility]-ordered outpatient medications on file. Vitals: BP 153/65 Pulse 83 Temp 37 ?C (98.6 ?F) (Oral) Resp 18 Ht 177.8 cm (5' 10) Wt 79.2 kg (174 lb 8 oz) SpO2 96% BMI 25.04 kg/m? BLOOD PRESSURE RANGE: Systolic (24hrs), Av , Min:140 , Max:172 ; Diastolic (24hrs), Av, Min:53, Max:69 24HR INTAKE/OUTPUT: Intake/Output Summary (Last 24 hours) at 03/30/2019 1122 Last data filed at 03/30/2019 0850 Gross per 24 hour Intake 0 ml Output 1250 ml Net -1250 ml Physical exam: Constitutional: NAD Heent: eomi, mm dry Neck: no bruits or jvd noted Cardiovascular: S1, S2 normal without m/r/g Respiratory: CTAB anteriorly Abdomen: +bs, soft, nt, nd Ext: no lower extremity edema Data: Labs: Recent Labs 03/30/19 0330 03/29/19 1137 WBC 16.10* 14.70* HB 9.3* 9.7* HCT 30.5* 30.9* MCV 95.6 93.4 PLT 410* 401* Recent Labs 03/30/19 0330 03/29/19 1137 03/28/19 0500 NA 138 139 137 K 5.7* 4.8 4.9 CO2 21 24 21 P 4.7 -- -- BUN 71* 76* 72* CREAT 1.70* 1.77* 1.86* CA 8.4* 8.7 9.1 Assessment and Plan 1- GARRET on CKD. Baseline Cr is around 1.5-1.6 mg/dL. CKD is from diabetic nephropathy. He has nephrotic range proteinuria. Cr peaked at 2.47 mg/dL on 03/24/19. Cr ihas been improving towards baseline. Keep I=O. Agree with restart of IVF since oral intake is poor. Will eventually start ACEI once we are sure of adequate oral intake and stability of renal function. ? 2- HTN. BP is acceptable for now. BP eventual target is On hydralazine, doxazosin, furosemide and carvedilol. Will consider ACEI once his oral intake is adequate. ? 3- Hyperkalemia. Pt had hyperkalemia 2 days prior to admission when he presented to [place] [facility] . Pt was given Kayexalate at that time. Some increase of K today-likely hemolysis. However, will recheck K since he is on LR. Avoid ACEI/ARB for now-see above. ?4- Hyperphosphatemia: On Phoslo 667 mg one with each meal. Ca/P are acceptable. ? ?5- UTI: Enterococcal. ID following. On vancomycin. Please do not hesitate to contact me at [phone] if there is any question or concern. Lauren Mcintyre MD (Rj Anderson) Normal [facility] PROGRESS HNO ID: [id number] Author: Cirilo Vitale III Service: Infectious Disease Author Type: Physician Type: Progress Notes Filed: 03/30/2019 9:27 AM Note Text: INFECTIOUS DISEASE PROGRESS NOTE March 30, 2019 9:20 AM F/u Enterococcal UTI RN reports mental status improving today Patient able to say it is 2018. When asked other orientation questions he kept saying 2018, but upon redirection able to answer these Month=september Location=[facility] Review of Systems Has neck pain. No cough or shortness of breath. RN had noted crackles at bases. No nausea. No diarrhea Current Facility-Administered Medications Medication Dose Route Frequency Provider Last Rate Last Dose - lactated ringers infusion 75 mL/hr INTRAVENOUS CONTINUOUS Dakota Mathias 75 mL/hr at 03/30/19 0608 75 mL/hr at 03/30/19 0608 - acetaminophen 650 mg tab(s) (TYLENOL) 650 mg ORAL q 6 H PRN Dakota Mathias 650 mg at 03/29/19 1721 - vancomycin 1.25 g in D5W 250 mL (VANCOCIN) 1.25 g INTRAVENOUS q 24 HR Ra Alcala 125 mL/hr at 03/29/19 1710 1.25 g at 03/29/19 1710 - insulin lispro 6 Units pen (rapid acting) (HumaLOG KWIKPEN) 6 Units SUBCUTANEOUS w MEALS Kiera Midha 4 Units at 03/30/19 0831 - furosemide 40 mg tab(s) (LASIX) 40 mg ORAL BID 9a/5p Bravo Lamb) Ervin 40 mg at 03/30/19 0828 - hydrALAZINE 50 mg tab(s) (APRESOLINE) 50 mg ORAL q 8 H Bravo Lamb) Ervin 50 mg at 03/30/19 0608 - atorvastatin 40 mg tab(s) (LIPITOR) 40 mg ORAL AT BEDTIME Mariela Schaef 40 mg at 03/29/192005 - aspirin 81 mg chewable tab(s) 81 mg ORAL DAILY Mariela Schaef 81 mg at 03/30/19828 - polyethylene glycol 3350 17 g packet (MIRALAX, GLYCOLAX) 17 g ORAL DAILY Mariela Schaef 17 g at 03/30/19828 - gabapentin 200 mg cap(s) (NEURONTIN) 200 mg ORAL DAILY Lara K Scantling 200 mg at 03/30/19 0828 - doxazosin 2 mg tab(s) (CARDURA) 2 mg ORAL BID Dante Myers 2 mg at 03/30/19828 - carvedilol 25 mg tab(s) (COREG) 25 mg ORAL BID w MEALS Dante Myers 25 mg at 03/30/19828 - latanoprost 0.005 % 1 Drop (XALATAN) 1 Drop BOTH EYES AT BEDTIME Dante Myers 1 Drop at 03/29/192104 - NaCl 0.9% 3-5 mL 3-5 mL INTRAVENOUS q 12 H Dante Myers 3 mL at 03/26/19 0832 - heparin 5,000 Units injection 5,000 Units SUBCUTANEOUS q 12 H Dante Myers 5,000 Units at 03/30/19 0834 - ondansetron 4 mg tab(s) (ZOFRAN) 4 mg ORAL q 6 H PRN Dante Myers Or - ondansetron (PF) 4 mg injection (ZOFRAN) 4 mg INTRAVENOUS q 6 H PRN Dante Myers - magnesium hydroxide 400 mg/5 mL 30 mL (MOM) 30 mL ORAL DAILY PRN Dante Myers - bisacodyl 10 mg suppository (DULCOLAX) 10 mg RECTAL DAILY PRN Dante Myers - dextrose 40 % 15 g 15 g ORAL PRN Dante Myers Or - glucagon 1 mg injection (GLUCAGEN) 1 mg INTRAMUSCULAR PRN Dante Myers Or - dextrose 50 % 12.5 g injection 12.5 g INTRAVENOUS PRN Dante Myers - NaCl 0.9% 3-5 mL 3-5 mL INTRAVENOUS q 12 H Vandana (Dietary InternshipAnette Steiner 3 mL at 08/03/19 2105 - aluminum-magnesium hydroxide-simethicone 200-200-20 mg/5 mL 30 mL (MAALOX,MYLANTA,MAG-AL PLUS) 30 mL ORAL DAILY PRN Vandana (Dietary Internship) Jatin - docusate sodium 100 mg cap(s) (COLACE) 100 mg ORAL BID PRN Vandana (Dietary Internship) Jatin - ipratropium-albuterol 3 mL nebulizer solution (DUONEB) 3 mL INHALATION q 4 H PRN Vandana (Dietary Internship) Jatin - insulin lispro pen (rapid acting) (HumaLOG KWIKPEN) SUBCUTANEOUS w MEALS Kiera Midha 1 Units at 03/30/19 0830 - calcium acetate 667 mg tab(s) (CALPHRON) 667 mg ORAL TID w MEALS Donavan (Res) MD Nahomi 667 mg at 03/30/19 0828 - insulin detemir U-100 15 Units injection (long acting) (LEVEMIR) 15 Units SUBCUTANEOUS DAILY (8 AM) Kiera Midha 15 Units at 03/30/19 0830 03/30/19 0330 03/30/19 0608 03/30/19 0815 03/30/19 0816 BP: 153/69 172/68 153/65 Pulse: 81 81 83 Resp: 18 Temp: 37.1 ?C (98.8 ?F) 37 ?C (98.6 ?F) TempSrc: Oral Oral SpO2: 92% 96% Weight: 79.2 kg (174 lb 8 oz) Height: Physical Exam General: no distress. Oriented x 2+ HEENT:sclera anicteric, conjunctiva clear. No thrush Heart: RRR without murmur Lungs: left lower lung field crackles Abdomen: soft, nontender. Bowel sounds normal : butler in place. Urine clear. Has a small amount of purulent drainage from urethral meatus around the catheter. Skin: no rashes Extremities: has left thigh pain with flexion of the hip. No tenderness over the hip. No redness or warmth. DATA: Recent Labs 03/30/19 0330 03/29/19 1137 03/28/19 0500 WBC 16.10* 14.70* -- HB 9.3* 9.7* -- HCT 30.5* 30.9* -- PLT 410* 401* -- NEUTNUM 13.22* 12.13* -- CREAT 1.70* 1.77* 1.86* Microbiology and infection related labs: 03/28 urine- no growth Impression/Recommendations 1) Enterococcal UTI- likely low growth of enterococcus at admit due to prior keflex and repeat urine culture may be no growth due to ceftriaxone but neither would be curative. Currently on vancomycin. Susceptibilities pending 2) encephalopathy- improving 3) Leukocytosis- rising despite being on vancomycin for the enterococcus. Crackles left lower lung field->?aspiration. ?urethritis 4) hip pain- doubt septic joint but if pain persists and no explanation for WBC increase then may need to tap the joint Plan: 1) Continue vancomycin- adjust based on susceptibilities. Treat x 7 days 2) check CXR 3) Check culture from urethral meatus 4) trend WBC 5) may add gram negative coverage depending on CXR results SIGNATURE: Cirilo Vitale III, MD PATIENT NAME: Mauri Quinones DATE: March 30, 2019 TIME: 9:20 AM PAGER/CONTACT #: [phone] Normal [facility] Potassium Bloodon 03-30-2019 Potassium [Moles/Vol] 4.9 mmol/L Normal 3.5-5.1 [facility] Comment on above: Performed By: #### E RTRP #### [place] [address] Renal Panelon 03-30-2019 Creatinine [Mass/Vol] 1.70 mg/dL High 0.67-1.17 [facility] Comment on above: Performed By: #### E RTRP #### [place] [address] Anion gap [Moles/Vol] 14 mmol/L Normal 8-16 [facility] Comment on above: Performed By: #### E RTRP #### [place] [address] Potassium [Moles/Vol] 5.7 mmol/L High 3.5-5.[address] [facility] [address] [facility] Comment on above: Result Comment: SPEC IMEN SLIGHTLY HEMOLYZED Performed By: #### E RTRP #### [place] [address] Phosphate [Mass/Vol] 4.7 mg/dL Normal 2.5-4.9 [facility] Comment on above: Performed By: #### E RTRP #### [facility] [address] [place], [place] [address] CO2 [Moles/Vol] 21 mmol/L Normal 21-32 [facility] Comment on above: Performed By: #### E RTRP #### [facility] [address] [place], [place] [address] Albumin [Mass/Vol] 1.4 g/dL Low 3.4-5.0 [facility] Comment on above: Performed By: #### E RTRP #### [facility] [address] [place], [place] [address] Glucose [Mass/Vol] 129 mg/dL High 70-99 [facility] Comment on above: Performed By: #### E RTRP #### [facility] [address] [place], [place] [address] Urea nitrogen [Mass/Vol] 71 mg/dL High 7-18 [facility] Comment on above: Performed By: #### E RTRP #### [facility] [address] [place], [place] [address] Calcium [Mass/Vol] 8.4 mg/dL Low 8.5-10.1 [facility] Comment on above: Performed By: #### E RTRP #### [facility] [address] [place], [place] [address] Chloride [Moles/Vol] 109 mmol/L High 98-107 [facility] Comment on above: Performed By: #### E RTRP #### [facility] [address] [place], [place] [address] Sodium [Moles/Vol] 138 mmol/L Normal 136-145 [facility] Comment on above: Performed By: #### E RTRP #### [facility] [address] [place], [place] [address] Ammoniaon 03-29-2019 Ammonia (P) [Mass/Vol] 27 umol/L Normal 11-32 [facility] Comment on above: Performed By: #### E RTRP #### [facility] [address] [place], [place] [address] Basic Panelon 03-29-2019 Creatinine [Mass/Vol] 1.77 mg/dL High 0.67-1.17 [facility] Comment on above: Performed By: #### G FR #### [facility] [address] [place], [place] [address] Anion gap [Moles/Vol] 10 mmol/L Normal 8-16 [facility] Comment on above: Performed By: #### G FR #### [facility] [address] [place], [place] [address] CO2 [Moles/Vol] 24 mmol/L Normal 21-32 [facility] Comment on above: Performed By: #### G FR #### [facility] [address] [place], [place] [address] Glucose [Mass/Vol] 120 mg/dL High 70-99 [facility] Comment on above: Performed By: #### G FR #### [facility] [address] [place], [place] [address] Urea nitrogen [Mass/Vol] 76 mg/dL High 7-18 [facility] Comment on above: Performed By: #### G FR #### [facility] [address] [place], [place] [address] Calcium [Mass/Vol] 8.7 mg/dL Normal 8.5-10.1 [facility] Comment on above: Performed By: #### G FR #### [facility] [address] [place], [place] [address] Chloride [Moles/Vol] 110 mmol/L High 98-107 [facility] Comment on above: Performed By: #### G FR #### [facility] [address] [place], [place] [address] Potassium [Moles/Vol] 4.8 mmol/L Normal 3.5-5.1 [facility] Comment on above: Performed By: #### G FR #### [facility] [address] [place], [place] [address] Sodium [Moles/Vol] 139 mmol/L Normal 136-145 [facility] Comment on above: Performed By: #### G FR #### [facility] [address] [place] [address] CASE MANAGEMon 03-29-2019 CASE MANAGEM HNO ID: [id number] Author: Radha (Rn) BISMARK Harris Service: ? Author Type: Registered Nurse Type: Care Mgt Progress Note Filed: 03/29/2019 10:55 AM Note Text: CARE MANAGEMENT PROGRESS NOTE SERVICE DATE: 03/29/2019 SERVICE TIME: 1054 LOS: 5 days Needs Prior to Discharge: IV Antibiotics Awaiting final antibiotic recommendations. Awaiting final sensitivities. Not likely to dc today. Set up with [facility] pharmacy when final antibiotics known. SIGNATURE: Radha Harris RN PATIENT NAME: Mauri Quinones DATE: March 29, 2019 TIME: 10:54 AM PAGER/CONTACT #: [phone] Normal [facility] CONSULT PROGon 03-29-2019 CONSULT PROG HNO ID: [id number] Author: Kavitha Fofana Service: Endocrinology Author Type: Physician Type: Consult Progress Note Filed: 03/29/2019 1:59 PM Note Text: ENDOCRINOLOGY CONSULT PROGRESS NOTE SERVICE DATE: 03/29/2019 SERVICE TIME: 12:00pm Subjective INTERVAL HPI: Following for DM type 2. Adm with severe neck and B/L shoulder pain. Has GARRET. Notes and orders reviewed. Today lethargic, not eating; D/W RN Diet: DIET HEART HEALTHY Activity:bedrest Review of Systems: PAIN ASSESSMENT: has neck and shoulder pain, better overall GENERAL: No weight loss, malaise or fevers. RESPIRATORY: Negative for cough, hemoptysis, wheezing, COPD, dyspnea or shortness of breath CARDIOVASCULAR: no CP, has edema GI: No nausea, vomiting, or diarrhea ENDOCRINE: Negative for cold or heat intolerance, polyuria or polydipsia. NEURO: no numbness/weakness extremities The remainder of the review of systems is negative. Current Facility-Administered Medications Medication Dose Route Frequency - doxazosin 2 mg tab(s) (CARDURA) 2 mg ORAL BID - carvedilol 25 mg tab(s) (COREG) 25 mg ORAL BID w MEALS - latanoprost 0.005 % 1 Drop (XALATAN) 1 Drop BOTH EYES AT BEDTIME - NaCl 0.9% 3-5 mL 3-5 mL INTRAVENOUS q 12 H - heparin 5,000 Units injection 5,000 Units SUBCUTANEOUS q 12 H - ondansetron 4 mg tab(s) (ZOFRAN) 4 mg ORAL q 6 H PRN Or - ondansetron (PF) 4 mg injection (ZOFRAN) 4 mg INTRAVENOUS q 6 H PRN - magnesium hydroxide 400 mg/5 mL 30 mL (MOM) 30 mL ORAL DAILY PRN - bisacodyl 10 mg suppository (DULCOLAX) 10 mg RECTAL DAILY PRN - dextrose 40 % 15 g 15 g ORAL PRN Or - glucagon 1 mg injection (GLUCAGEN) 1 mg INTRAMUSCULAR PRN Or - dextrose 50 % 12.5 g injection 12.5 g INTRAVENOUS PRN - NaCl 0.9% 3-5 mL 3-5 mL INTRAVENOUS q 12 H - aluminum-magnesium hydroxide-simethicone 200-200-20 mg/5 mL 30 mL (MAALOX,MYLANTA,MAG-AL PLUS) 30 mL ORAL DAILY PRN - docusate sodium 100 mg cap(s) (COLACE) 100 mg ORAL BID PRN - ipratropium-albuterol 3 mL nebulizer solution (DUONEB) 3 mL INHALATION q 4 H PRN - insulin lispro pen (rapid acting) (HumaLOG KWIKPEN) SUBCUTANEOUS w MEALS - calcium acetate 667 mg tab(s) (CALPHRON) 667 mg ORAL TID w MEALS - insulin detemir U-100 15 Units injection (long acting) (LEVEMIR) 15 Units SUBCUTANEOUS DAILY (8 AM) - atorvastatin 40 mg tab(s) (LIPITOR) 40 mg ORAL AT BEDTIME - aspirin 81 mg chewable tab(s) 81 mg ORAL DAILY - polyethylene glycol 3350 17 g packet (MIRALAX, GLYCOLAX) 17 g ORAL DAILY - gabapentin 200 mg cap(s) (NEURONTIN) 200 mg ORAL DAILY - insulin lispro 6 Units pen (rapid acting) (HumaLOG KWIKPEN) 6 Units SUBCUTANEOUS w MEALS - furosemide 40 mg tab(s) (LASIX) 40 mg ORAL BID 9a/5p - hydrALAZINE 50 mg tab(s) (APRESOLINE) 50 mg ORAL q 8 H - vancomycin 1.25 g in D5W 250 mL (VANCOCIN) 1.25 g INTRAVENOUS q 24 HR - lactated ringers infusion 75 mL/hr INTRAVENOUS CONTINUOUS - acetaminophen 650 mg tab(s) (TYLENOL) 650 mg ORAL q 6 H PRN Objective PHYSICAL EXAM: GENERAL: awake, no distress SKIN: Skin color, texture, turgor normal. No rashes or lesions. OROPHARYNX: Lips, mucosa, and tongue normal. Teeth and gums normal. Oropharynx normal. LUNGS: Lungs clear to auscultation, Good diaphragmatic excursion CARDIAC: Normal S1 and S2; no rubs, murmurs, or gallops ABDOMEN: Abdomen soft, non-tender, BS normal, No masses or organomegaly EXTREMITIES: 1+ edema B/L LE, no clubbing or skin discoloration., No ulcers NEURO: Grossly normal cognition, motor function, and cranial nerves BP 147/67 Pulse 71 Temp (Src) 98.7 (Oral) Resp 14 Ht 5' 10 (1.78m) Wt 172 lb 11.2 oz (78.3kg) SpO2 95% BMI 24.78 kg/(m2). O2 Therapy: Room Air DATA: Diagnostic tests reviewed for today's visit: Most recent labs and imaging results. Last 24 hr BS reviewed. Recent Labs 03/29/19 1137 03/29/19 1100 03/29/19 0635 03/28/19 2000 03/28/19 1617 03/28/19 1349 03/28/19 0500 03/27/19 0025 GLUC 120* -- -- -- -- -- -- 114* -- 78 GLUCOSEMETER -- 141* 291* 180* 179* 207* < > -- < > -- < > = values in this interval not displayed. Assessment/Plan Type 2 diabetes mellitus, uncontrolled, without complication, with long-term current use of insulin (HCC) POA: Yes Assessment AND Plan: 12-15 ears duration, on insulin for 5 years, Levemir 17 units qhs; off Metformin since 06/2018 due to CKD. A1c 10.4 (was 6.6 in 06/2018 before hip surgery) Checks BS q.o.d. at home, FBS 200-250's at home. BS 287 on adm, no Levemir given on 03/23 hs. Levemir resumed 10 units qam and Humalog 6 units tid started on 03/24 am. BS were high on 03/24; increased Levemir to 15 units qam and Humalog to 8 units tid with SSI on 03/25. BS better but occ <100, reduced Humalog to 6 units tid on 03/27. BS stable, cont Levemir 15 units qam and Humalog 6 units tid (held as pt not eating). Will need Rx for Humalog when goes home. Neck/sholuder pain, hx ankylosing spondylitis; pain management seeing pt GARRET (acute kidney injury) ([facility]) POA: Yes Assessment AND Plan: creat 1.77(1.86)(2.09)(2.33)(2.4 7); baseline 1.54; per renal CKD (chronic kidney disease) stage 3, GFR 30-59 ml/min ([facility]) POA: Yes Assessment AND Plan: creat 1.54 in 07/2018 Arteriosclerotic heart disease (ASHD) POA: Yes Assessment AND Plan: hx Hypertension, essential POA: Yes Assessment AND Plan: per caprice UTI (urinary tract infection) POA: Unknown Assessment AND Plan: on A/B Chronic combined systolic and diastolic CHF (congestive heart failure) ([facility]) POA: Yes Assessment AND Plan: hx SIGNATURE: Kavitha Fofana MD PATIENT NAME: Mauri Quinones DATE: March 29, 2019 TIME: 1:58 PM PAGER: [phone] Normal [facility] Hemogram/Diffon 03-29-2019 Abs Immature Grans 0.12 thou/cmm High 0.00-0.05 [facility] Comment on above: Performed By: #### G FR #### [place] [address] Abs Neut (ANC) 12.13 thou/cmm High 1.78-5.38 [facility] Comment on above: Performed By: #### G FR #### [place] [address] Abs. Baso 0.04 thou/cmm Normal 0.01-0.08 [facility] Comment on above: Result Comment: Smea r scanned; tech agrees with automated differential Performed By: #### G FR #### [place] [address] Abs. Bucks 1.48 thou/cmm High 0.30-0.82 [facility] Comment on above: Performed By: #### G FR #### [facility] [address] [place], [place] [address] Basophils/100 WBC (Bld) 0.3 % Normal [facility] Comment on above: Performed By: #### G FR #### [facility] [address] [place], [place] [address] Eosinophils (Bld) [#/Vol] 0.16 thou/cmm Normal 0.04-0.54 [facility] Comment on above: Performed By: #### G FR #### [facility] [address] [place], [place] [address] Eosinophils/100 WBC (Bld) 1.1 % Normal [facility] Comment on above: Performed By: #### G FR #### [facility] [address] [place], [place] [address] Immature Grans 0.80 % Normal [facility] Comment on above: Performed By: #### G FR #### [facility] [address] [place], [place] [address] Lymphocytes (Bld) [#/Vol] 0.76 thou/cmm Low 0.84-2.85 [facility] Comment on above: Performed By: #### G FR #### [facility] [address] [place], [place] [address] Lymphocytes/100 WBC (Bld) 5.2 % Normal [facility] Comment on above: Performed By: #### G FR #### [facility] [address] [place], [place] [address] Monocytes/100 WBC (Bld) 10.1 % Normal [facility] Comment on above: Performed By: #### G FR #### [facility] [address] [place], [place] [address] Seg Neutrophil 82.5 % Normal [facility] Comment on above: Performed By: #### G FR #### [facility] [address] [place], [place] [address] Erythrocyte distribution width (RBC) [Ratio] 13.7 % Normal 11.6-14.4 [facility] Comment on above: Performed By: #### G FR #### [facility] [address] [place] [address] Hematocrit (Bld) [Volume fraction] 30.9 % Low 40.1-51.0 [facility] Comment on above: Performed By: #### G FR #### [facility] [address] [place] [address] Hemoglobin (Bld) [Mass/Vol] 9.7 g/dL Low 13.7-17.5 [facility] Comment on above: Performed By: #### G FR #### [facility] [address] [place] [address] MCH (RBC) [Entitic mass] 29.3 pg Normal 25.7-32.2 [facility] Comment on above: Performed By: #### G FR #### [place] [address] MCHC (RBC) [Mass/Vol] 31.4 % Low 32.3-36.5 [facility] Comment on above: Performed By: #### G FR #### [facility] [address] [place] [address] MCV (RBC) [Entitic vol] 93.4 fL Normal 83.2-95.6 [facility] Comment on above: Performed By: #### G FR #### [facility] [address] [place] [address] Platelet mean volume (Bld) [Entitic vol] 8.6 fL Low 8.7-12.0 [facility] Comment on above: Performed By: #### G FR #### [facility] [address] [place] [address] Platelets (Bld) [#/Vol] 401 thou/cmm High 141-365 [facility] Comment on above: Performed By: #### G FR #### [facility] [address] [place] [address] RBC (Bld) [#/Vol] 3.31 mil/cmm Low 4.63-6.08 [facility] Comment on above: Performed By: #### G FR #### [facility] [address] [place], [place] [address] RDW SD 46.5 fl High 36.1-45.8 [facility] Comment on above: Performed By: #### G FR #### [facility] [address] [place], [place] [address] WBC (Bld) [#/Vol] 14.70 thou/cmm High 4.23-9.07 [facility] Comment on above: Performed By: #### G FR #### [facility] [address] [place], [place] [address] PROGRESSon 03-29-2019 PROGRESS HNO ID: [id number] Author: Rj Anderson Service: Nephrology Author Type: Physician Type: Progress Notes Filed: 03/29/2019 1:44 PM Note Text: Nephrology Progress Note Following for GARRET on CKD. Pt denies CP, SOB. Still has necak pain. Poor oral intake per pt's son. No appetite. Current Inpatient Medications: Current Facility-Administered Medications Ordered in Epic: vancomycin 1.25 g in D5W 250 mL (VANCOCIN) 1.25 g INTRAVENOUS q 24 HR Ra Alcala Last Rate: 200 mL/hr at 03/28/19 1600 1.25 g at 03/28/19 1600 insulin lispro 6 Units pen (rapid acting) (HumaLOG KWIKPEN) 6 Units SUBCUTANEOUS w MEALS Kiera Midha 6 Units at 03/29/19 0848 furosemide 40 mg tab(s) (LASIX) 40 mg ORAL BID 9a/5p Bravo Lamb) Ervin 40 mg at 03/29/19 0846 hydrALAZINE 50 mg tab(s) (APRESOLINE) 50 mg ORAL q 8 H Bravo Lamb) Ervin 50 mg at 03/29/19 0545 atorvastatin 40 mg tab(s) (LIPITOR) 40 mg ORAL AT BEDTIME Mariela Schaef 40 mg at 03/28/19 2024 aspirin 81 mg chewable tab(s) 81 mg ORAL DAILY Mariela Schaef 81 mg at 03/29/19 0900 polyethylene glycol 3350 17 g packet (MIRALAX, GLYCOLAX) 17 g ORAL DAILY Mariela Schaef 17 g at 03/29/19 0848 gabapentin 200 mg cap(s) (NEURONTIN) 200 mg ORAL DAILY Lara K Scantling 200 mg at 03/29/19 0846 HYDROcodone 5 mg - acetaminophen 325 mg tablet (NORCO) 1 tablet ORAL q 4 H PRN Lara K Scantling 1 tablet at 03/27/19 2030 baclofen 5 mg tab(s) (LIORESAL) 5 mg ORAL TID PRN Lara K Scantling 5 mg at 03/27/19 1645 doxazosin 2 mg tab(s) (CARDURA) 2 mg ORAL BID Dante Myers 2 mg at 03/29/19 0846 carvedilol 25 mg tab(s) (COREG) 25 mg ORAL BID w MEALS Dante Myers 25 mg at 03/29/19 0846 latanoprost 0.005 % 1 Drop (XALATAN) 1 Drop BOTH EYES AT BEDTIME Dante Myers 1 Drop at 03/28/19 2025 NaCl 0.9% 3-5 mL 3-5 mL INTRAVENOUS q 12 H Dante Myers 3 mL at 03/26/19 0832 heparin 5,000 Units injection 5,000 Units SUBCUTANEOUS q 12 H Dante Myers 5,000 Units at 03/29/19 0847 ondansetron 4 mg tab(s) (ZOFRAN) 4 mg ORAL q 6 H PRN Dante Myers Or ondansetron (PF) 4 mg injection (ZOFRAN) 4 mg INTRAVENOUS q 6 H PRN Dante Myers magnesium hydroxide 400 mg/5 mL 30 mL (MOM) 30 mL ORAL DAILY PRN Dante Myers bisacodyl 10 mg suppository (DULCOLAX) 10 mg RECTAL DAILY PRN Dante Myers acetaminophen 650 mg tab(s) (TYLENOL) 650 mg ORAL q 6 H PRN Dante Myers 650 mg at 03/25/19 0552 dextrose 40 % 15 g 15 g ORAL PRN Dante Myers Or glucagon 1 mg injection (GLUCAGEN) 1 mg INTRAMUSCULAR PRN Dante Myers Or dextrose 50 % 12.5 g injection 12.5 g INTRAVENOUS PRN Dante Myers NaCl 0.9% 3-5 mL 3-5 mL INTRAVENOUS q 12 H Vandana (Dietary Internship) Jatin 3 mL at 03/29/19 0849 aluminum-magnesium hydroxide-simethicone 200-200-20 mg/5 mL 30 mL (MAALOX,MYLANTA,MAG-AL PLUS) 30 mL ORAL DAILY PRN Vandana (Dietary Internship) Jatin docusate sodium 100 mg cap(s) (COLACE) 100 mg ORAL BID PRN Vandana (Dietary Internship) Jatin ipratropium-albuterol 3 mL nebulizer solution (DUONEB) 3 mL INHALATION q 4 H PRN Vandana (Dietary Internship) Jatin insulin lispro pen (rapid acting) (HumaLOG KWIKPEN) SUBCUTANEOUS w MEALS Kiera Midha 3 Units at 03/29/19 0850 calcium acetate 667 mg tab(s) (CALPHRON) 667 mg ORAL TID w MEALS Donavan (Res) MD Nahomi 667 mg at 03/29/19 0846 insulin detemir U-100 15 Units injection (long acting) (LEVEMIR) 15 Units SUBCUTANEOUS DAILY (8 AM) Kiera Midha 15 Units at 03/29/19 0847 No current [facility]-ordered outpatient medications on file. Vitals: BP 147/67 Pulse 71 Temp 37.1 ?C (98.7 ?F) (Oral) Resp 14 Ht 177.8 cm (5' 10) Wt 78.3 kg (172 lb 11.2 oz) SpO2 95% BMI 24.78 kg/m? BLOOD PRESSURE RANGE: Systolic (24hrs), Av , Min:147 , Max:174 ; Diastolic (24hrs), Av, Min:63, Max:78 24HR INTAKE/OUTPUT: Intake/Output Summary (Last 24 hours) at 03/29/2019 1337 Last data filed at 03/29/2019 0543 Gross per 24 hour Intake ? Output 650 ml Net -650 ml Physical exam: Constitutional: NAD Heent: eomi, mm dry Neck: no bruits or jvd noted Cardiovascular: S1, S2 normal without m/r/g Respiratory: CTAB anteriorly Abdomen: +bs, soft, nt, nd Ext: no lower extremity edema Data: Labs: Recent Labs 03/29/19 1137 WBC 14.70* HB 9.7* HCT 30.9* MCV 93.4 PLT 401* Recent Labs 03/29/19 1137 03/28/19 0500 03/27/19 0025 NA 139 137 137 K 4.8 4.9 5.1 CO2 24 21 23 P -- -- 4.8 BUN 76* 72* 79* CREAT 1.77* 1.86* 2.09* CA 8.7 9.1 8.7 Assessment and Plan 1- GARRET on CKD. Baseline Cr is around 1.5-1.6 mg/dL. CKD is from diabetic nephroapthy. He has nephrotic range proteinuria. Cr peaked at 2.47 mg/dL on 03/24/19. Cr is at baseline. Will eventually start ACEI once we are sure of adequate oral intake and stability of renal function. 2- HTN: BP is acceptable for now. BP eventual target is < 130/80. On hydralazine, doxazosin, furosemide and carvedilol. Will consider ACEI once his oral intake is adequate. 3- Hyperkalemia: Pt had hyperkalemia 2 days prior to admission when he visited [place] [facility] . Pt was given Kayexalate. K is stable since admit. Avoid ACEI/ARB for now-see above. 4- Hyperphosphatemia: On Phoslo 667 mg one with each meal. Recheck P in am. 5- UTI: Enterococcal. ID following. On vancomycin. Please do not hesitate to contact me at [phone] if there is any question or concern. Lauren Mcintyre MD (Rj Anderson) [facility] PROGRESS HNO ID: [id number] Author: Dakota Mathias Service: Hospital Medicine Author Type: Physician Type: Progress Notes Filed: 03/29/2019 6:31 PM Note Text: DEPARTMENT OF HOSPITAL MEDICINE PROGRESS NOTE SERVICE DATE: 03/29/2019 SERVICE TIME: 1:34 PM Hospital Medicine/Primary Attending: Dakota Mathias MD Subjective CHIEF COMPLAINT: neck pain INTERVAL HPI: initially presented with neck pain, then found to have UTI, Since 03/26 Had acute urinary retention on 03/28 and butler was placed Has had worsening AMS since 03/28 per nursing Current Facility-Administered Medications Medication Dose Route Frequency - doxazosin 2 mg tab(s) (CARDURA) 2 mg ORAL BID - carvedilol 25 mg tab(s) (COREG) 25 mg ORAL BID w MEALS - latanoprost 0.005 % 1 Drop (XALATAN) 1 Drop BOTH EYES AT BEDTIME - NaCl 0.9% 3-5 mL 3-5 mL INTRAVENOUS q 12 H - heparin 5,000 Units injection 5,000 Units SUBCUTANEOUS q 12 H - ondansetron 4 mg tab(s) (ZOFRAN) 4 mg ORAL q 6 H PRN Or - ondansetron (PF) 4 mg injection (ZOFRAN) 4 mg INTRAVENOUS q 6 H PRN - magnesium hydroxide 400 mg/5 mL 30 mL (MOM) 30 mL ORAL DAILY PRN - bisacodyl 10 mg suppository (DULCOLAX) 10 mg RECTAL DAILY PRN - acetaminophen 650 mg tab(s) (TYLENOL) 650 mg ORAL q 6 H PRN - dextrose 40 % 15 g 15 g ORAL PRN Or - glucagon 1 mg injection (GLUCAGEN) 1 mg INTRAMUSCULAR PRN Or - dextrose 50 % 12.5 g injection 12.5 g INTRAVENOUS PRN - NaCl 0.9% 3-5 mL 3-5 mL INTRAVENOUS q 12 H - aluminum-magnesium hydroxide-simethicone 200-200-20 mg/5 mL 30 mL (MAALOX,MYLANTA,MAG-AL PLUS) 30 mL ORAL DAILY PRN - docusate sodium 100 mg cap(s) (COLACE) 100 mg ORAL BID PRN - ipratropium-albuterol 3 mL nebulizer solution (DUONEB) 3 mL INHALATION q 4 H PRN - insulin lispro pen (rapid acting) (HumaLOG KWIKPEN) SUBCUTANEOUS w MEALS - calcium acetate 667 mg tab(s) (CALPHRON) 667 mg ORAL TID w MEALS - insulin detemir U-100 15 Units injection (long acting) (LEVEMIR) 15 Units SUBCUTANEOUS DAILY (8 AM) - atorvastatin 40 mg tab(s) (LIPITOR) 40 mg ORAL AT BEDTIME - aspirin 81 mg chewable tab(s) 81 mg ORAL DAILY - polyethylene glycol 3350 17 g packet (MIRALAX, GLYCOLAX) 17 g ORAL DAILY - gabapentin 200 mg cap(s) (NEURONTIN) 200 mg ORAL DAILY - HYDROcodone 5 mg - acetaminophen 325 mg tablet (NORCO) 1 tablet ORAL q 4 H PRN - baclofen 5 mg tab(s) (LIORESAL) 5 mg ORAL TID PRN - insulin lispro 6 Units pen (rapid acting) (HumaLOG KWIKPEN) 6 Units SUBCUTANEOUS w MEALS - furosemide 40 mg tab(s) (LASIX) 40 mg ORAL BID 9a/5p - hydrALAZINE 50 mg tab(s) (APRESOLINE) 50 mg ORAL q 8 H - vancomycin 1.25 g in D5W 250 mL (VANCOCIN) 1.25 g INTRAVENOUS q 24 HR Objective PHYSICAL EXAM: BP 147/67 Pulse 71 Temp (Src) 98.7 (Oral) Resp 14 Ht 5' 10 (1.78m) Wt 172 lb 11.2 oz (78.3kg) SpO2 95% BMI 24.78 kg/(m2). O2 Therapy: Room Air GENERAL: Falling asleep during exam, oriented to self only, no distress, cooperative SKIN: Skin color, texture, turgor normal. No rashes or lesions. EYES: PERRLA, not cooperative with EOM testing OROPHARYNX: Negative NECK: No jugulovenous distention, LUNGS: CTAB, no wheeze or crackles CARDIAC: Normal S1 and S2; no rubs, murmurs, or gallops ABDOMEN: Abdomen soft, non-tender, BS normal, No masses or organomegaly EXTREMITIES: 1+ pitting edema bilaterally NEURO: limited, falling asleep during exam, no focal deficits Lines, Drains, and Airways Line Peripheral 03/23/19 1900 Left Antecubital 20 Gauge 5 days Drain Indwelling Urinary Catheter 03/28/19 1500 Butler 16 Fr less than 1 day DATA: Diagnostic tests reviewed for today's visit: Most recent labs and imaging results. Assessment/Plan # Altered mental status: infectious vs metabolic, mod diffuse encephalopathy on w/o seizure activity on EEG, will check ammonia, TSH and hold opiate and muscle relaxant # Poor PO intake: add LR at 75 cc/h for now # Enterococcal UTI (urinary tract infection): continue vanc, await final C+S # Acute urinary retention on 03/28 s/p butler placement, trial of void prior to DC # Leukocytosis: no new fever, monitor CBC in AM and continue vancomycin for now # Uncontrolled type 2 diabetes mellitus without complication, with long-term current use of insulin: endocrinology managing # Neck pain: 2/2 neck strain, mild degen spinal stenosis on MRI, avoid opiates as above # GARRET on CKD stage 3: resolving # Hypertension, essential # Lower leg edema # Anemia of chronic renal failure, stage 3 # Chronic combined systolic and diastolic CHF (congestive heart failure) (HCC) POA: # Hyperkalemia: resolved, hold ACEi/ARB FULL CODE per chart Resolved Problems: * No resolved hospital problems. * Medication and Non-Pharmacologic VTE Prophylaxis/Anticoagulants Anticoagulant AND Antiplatelet Medications (From admission, onward) Start Dose Route Frequency Ordered Stop 03/25/19 0900 aspirin 81 mg chewable tab(s) 81 mg ORAL DAILY 03/25/19 0816 -- 03/24/19 0300 heparin 5,000 Units injection (Medical At Risk ) 5,000 Units SUBCUTANEOUS EVERY 12 HOURS 03/24/19 0232 -- 03/24/19 0945 activity - mobilize patient ([place]) 03/24/19 0245 pneumatic compression stockings ([place] 03/24/19 0245 activity - mobilize patient ([place]) VTE Prophylaxis: VTE prophylaxis appropriate Disposition: Home with [facility] Plan of care discussed with: Patient, Family/Significant Other: son and RN SIGNATURE: Dakota Mathias MD PATIENT NAME: Mauri Quinones DATE: March 29, 2019 TIME: 1:34 PM PAGER: [phone] [facility] PROGRESS HNO ID: [id number] Author: Cirilo Vitale III Service: Infectious Disease Author Type: Physician Type: Progress Notes Filed: 03/29/2019 11:54 AM Note Text: INFECTIOUS DISEASE PROGRESS NOTE March 29, 2019 11:49 AM F/u Enterococcal UTI Mental status not improved. No other issues per RN. Son at bedside. Review of Systems Denies pain No cough or shortness of breath No nausea or diarrhea No itching or rashes Current Facility-Administered Medications Medication Dose Route Frequency Provider Last Rate Last Dose - vancomycin 1.25 g in D5W 250 mL (VANCOCIN) 1.25 g INTRAVENOUS q 24 HR Ra Alcala 200 mL/hr at 03/28/19 1600 1.25 g at 03/28/19 1600 - insulin lispro 6 Units pen (rapid acting) (HumaLOG KWIKPEN) 6 Units SUBCUTANEOUS w MEALS Kiera Midha 6 Units at 03/29/19 0848 - furosemide 40 mg tab(s) (LASIX) 40 mg ORAL BID 9a/5p Bravo Lamb) Ervin 40 mg at 03/29/19 0846 - hydrALAZINE 50 mg tab(s) (APRESOLINE) 50 mg ORAL q 8 H Bravo Lamb) Ervin 50 mg at 03/29/19 0545 - atorvastatin 40 mg tab(s) (LIPITOR) 40 mg ORAL AT BEDTIME Mariela Schaef 40 mg at 03/28/194 - aspirin 81 mg chewable tab(s) 81 mg ORAL DAILY Mariela Schaef 81 mg at 03/29/19 0900 - polyethylene glycol 3350 17 g packet (MIRALAX, GLYCOLAX) 17 g ORAL DAILY Mariela Schaef 17 g at 03/29/19 0848 - gabapentin 200 mg cap(s) (NEURONTIN) 200 mg ORAL DAILY Lara K Scantling 200 mg at 03/29/19 0846 - HYDROcodone 5 mg - acetaminophen 325 mg tablet (NORCO) 1 tablet ORAL q 4 H PRN Lara K Scantling 1 tablet at 03/27/19 2030 - baclofen 5 mg tab(s) (LIORESAL) 5 mg ORAL TID PRN Lara K Scantling 5 mg at 03/27/19 1645 - doxazosin 2 mg tab(s) (CARDURA) 2 mg ORAL BID Dante Myers 2 mg at 03/29/19 0846 - carvedilol 25 mg tab(s) (COREG) 25 mg ORAL BID w MEALS Dante Myers 25 mg at 03/29/19 0846 - latanoprost 0.005 % 1 Drop (XALATAN) 1 Drop BOTH EYES AT BEDTIME Dante Myers 1 Drop at 03/28/192024 - NaCl 0.9% 3-5 mL 3-5 mL INTRAVENOUS q 12 H Dante Myers 3 mL at 03/26/19 0832 - heparin 5,000 Units injection 5,000 Units SUBCUTANEOUS q 12 H Dante Myers 5,000 Units at 03/29/19 0847 - ondansetron 4 mg tab(s) (ZOFRAN) 4 mg ORAL q 6 H PRN Dante Myers Or - ondansetron (PF) 4 mg injection (ZOFRAN) 4 mg INTRAVENOUS q 6 H PRN Dante Myers - magnesium hydroxide 400 mg/5 mL 30 mL (MOM) 30 mL ORAL DAILY PRN Dante Myers - bisacodyl 10 mg suppository (DULCOLAX) 10 mg RECTAL DAILY PRN Dante Myers - acetaminophen 650 mg tab(s) (TYLENOL) 650 mg ORAL q 6 H PRN Dante Myers 650 mg at 03/25/19 0552 - dextrose 40 % 15 g 15 g ORAL PRN Dante Myers Or - glucagon 1 mg injection (GLUCAGEN) 1 mg INTRAMUSCULAR PRN Dante Myers Or - dextrose 50 % 12.5 g injection 12.5 g INTRAVENOUS PRN Dante Myers - NaCl 0.9% 3-5 mL 3-5 mL INTRAVENOUS q 12 H Vandana (Dietary Internship) Jatin 3 mL at 03/29/19 0849 - aluminum-magnesium hydroxide-simethicone 200-200-20 mg/5 mL 30 mL (MAALOX,MYLANTA,MAG-AL PLUS) 30 mL ORAL DAILY PRN Vandana (Dietary Internship) Jatin - docusate sodium 100 mg cap(s) (COLACE) 100 mg ORAL BID PRN Vandana (Dietary Internship) Jatin - ipratropium-albuterol 3 mL nebulizer solution (DUONEB) 3 mL INHALATION q 4 H PRN Vandana (Dietary Internship) Jatin - insulin lispro pen (rapid acting) (HumaLOG KWIKPEN) SUBCUTANEOUS w MEALS Kiera Midha 3 Units at 03/29/19 0850 - calcium acetate 667 mg tab(s) (CALPHRON) 667 mg ORAL TID w MEALS Donavan (Res) MD Nahomi 667 mg at 03/29/19 0846 - insulin detemir U-100 15 Units injection (long acting) (LEVEMIR) 15 Units SUBCUTANEOUS DAILY (8 AM) Kiera Midha 15 Units at 03/29/19 0847 03/28/19 1708 03/28/19 1900 03/29/19 0543 03/29/19 0930 BP: 151/63 149/65 171/75 174/78 Pulse: 71 69 79 86 Resp: 16 17 18 18 Temp: 36.7 ?C (98.1 ?F) 36.8 ?C (98.2 ?F) 37 ?C (98.6 ?F) 37.1 ?C (98.7 ?F) TempSrc: Oral Axillary Oral Oral SpO2: 93% 93% 93% 92% Weight: 78.3 kg (172 lb 11.2 oz) Height: Physical Exam General: no distress HEENT:sclera anicteric, conjunctiva clear. No thrush Heart: RRR without murmur Lungs: CTAB Abdomen: soft, nontender. Bowel sounds normal : butler in place. Urine a little clearer than before Skin: no rashes DATA: Recent Labs 03/28/19 0500 03/27/19 0025 CREAT 1.86* 2.09* Microbiology and infection related labs: 03/28 urine- no growth at 1 day Impression/Recommendations 1) Enterococcal UTI- likely low growth of enterococcus at admit due to prior keflex which may have inhibed growth but not curative (same with ceftriaxone which may be why urine culture no growth from yesterday) Awaiting susceptibility from prior urine isolate 2) encephalopathy- unclear cause Plan: 1) Continue vancomycin- adjust based on susceptibilities. Treat x 7 days 2) Check CBC, BMP today 3) if encephalopathy not improving with enterococcal therapy, may be due to other cause SIGNATURE: Cirilo Vitale III, MD PATIENT NAME: Mauri Quinones DATE: March 29, 2019 TIME: 11:49 AM PAGER/CONTACT #: [phone] [facility] THERAPY NTon 03-29-2019 THERAPY NT HNO ID: [id number] Author: Isabela (Pt) Flori Service: Physical Therapy Author Type: Physical Therapist Type: Therapy (PT/OT/Speech/Resp) Filed: 03/29/2019 11:19 AM Note Text: Physical Therapy Treatment (re-evaluation) SERVICE DATE: 03/29/2019 SERVICE TIME: 1030 to 1055 ROOM: [place] [id number] Recommended Discharge Disposition: Acute rehab Recommended Discharge Disposition Comments: pt with siginificant change in status--needing max Ax2 to achieve upright at EOB and max A to sit EOB Justification For Post Acute Needs: Anticipate that patient will require daily (5x/wk) skilled therapy in a post-acute facility setting at the time of acute hospital discharge;Medically complex PT Recommendations to Nursing: Not appropriate for OOB activity at this time PT 6 Clicks Score: 8 Isolation Type: None ASSESSMENT : Pt with mental status changes and now with significant change in functional mobility--now needing max Ax2 to achieve upright at edge of bed and max A to maintain upright--pt only oriented to self, thought he was at a restaurant, doesn't know month and year, didn't know son's name that was in the room--didn't know dtr's name--would not turn head to left to look over at his son--RN aware of changes--now rec acute rehab at D/C Patient Disposition at Start of Session: Supine in Bed;Call Emmanuel in Reach;SCDs;Family Present Patient Disposition at End of Session: Supine in Bed;Call Emmanuel in Reach;SCDs;Family Present;Bed Alarm Tolerance Limited By Alertness(cognition) Physical Therapy Problem List: Pain;Functional Mobility Impairment;Decreased Range Of Motion Patient /Caregiver Goals: Walk;Go Home Goals for Plan of Care: Able to perform HEP with: (NA) Transfer supine to/from sit with: Contact Guard Assistance Transfer sit to/from stand with: Contact Guard Assistance Ambulate with: Contact Guard Assistance Distance: 40x2 Device: Wheeled Walker Transfer: stand pivot min A Goal: 2x10 reps bilat LE AROM exercises Progress Toward Goals: Progressing slower than expected Due To: acuity; change in mental status Rehab Potential: Good PLAN: Treatment Frequency (times per week): 5(1-5) Current admission Treatment Interventions: Education;Joint Mobility;Strengthening;Fun ctional Mobility Training;Balance Training Plan of Care developed with: Patient;Family TREATMENT INTERVENTIONS: Interventions Provided: Therapeutic Activity (48212);Re-evaluation $ Reevaluation (08066) Billed Units: 1 unit Reviewed chart, updated goals, POC and D/C rec as needed Therapeutic Activity (18073) Treatment Minutes: 15 1 unit Skilled Intervention(s): Educated pt and jose david Ambrosio on role of PT in acute care--discussed change in POC, goals and D/C rec--rec acute rehab at [facility] Educated on safety and fall prevention--use call light and wait for assist--bed alarm turned on when left room Educated on negative effects of bed rest--encouraged frequent position changes Educated on DVT prevention--using SCDs as ordered Instruct in hand placement and safety with bed mobility needed max A x2 to complete--instruct to reach across body for railing and roll to side and then sit up using UEs for support--pt could not follow directions to do this--needed max assist to scoot to edge of bed--instructed pt on how to do this but also unable Sat at the edge of bed several min--instructed pt in hand placement and use core muscles to maintain upright and support self--but unable--needed max A ? Total Timed Code Treatment Minutes: 15 Total Treatment Time (minutes): 25 SUBJECTIVE: Current Hospital Course: Chart reviewed; mental status changes yesterday--consulted infectious disease Reason for Physical Therapy Consult : eval Relevant Past Medical History: CAD, ankylosing spondylitis, gout Patient Report: c/o pain with mobility--first to right hip and then left hip and then just hip--very confused--answers [place] to what's your son's name, what's your dtr's name--reports not seeing his son in room--who is just to the left of him Home Environment Patient Lives With: Family( and dtr) Assistance Available: 24 Hour Entry To Home: Stairs;With Rail Number Of Stairs Into Home: 1 Number Of Stairs To Bed/Bath: 0 Laundry: basement- pt can do it Equipment Owned: Wheeled Walker;Cane Prior Functional Level: Within Functional Limits Prior Functional Level Comments: independent, drives, OBJECTIVE: CURRENT FUNCTIONAL STATUS: Current Functional Mobility Assist Level Additional Information Rolling Supine to Sit Maximal Assistance(x2) Sit to Supine Maximal Assistance(x2) Scooting Sit to Stand Stand to Sit Bed to Chair Toilet/Commode Gait Stairs Curb Step Car Transfer Balance: Static Sitting Static Sitting Balance: Maximal Assistance Activity Tolerance: Sitting Activity Sitting Activity: sat EOB with max A Sitting Activity Tolerance (in minutes): 4 JH-HLM: 3: Sit at edge of bed Please see discipline specific clinical documentation flowsheet for complete details for this therapy evaluation/treatment. SIGNATURE: Isabela Ruby PT PATIENT NAME: Mauri Quinones DATE: March 29, 2019 TIME: 11:07 AM Normal [facility] TSH, 3rd generationon 2018 TSH, 3rd generation 2.590 uIU/mL Normal 0.358-3.740 [facility] Comment on above: Performed By: #### E RTRP #### [facility] [address] [place] [address] Basic Panelon 03-28-2019 Creatinine [Mass/Vol] 1.86 mg/dL High 0.67-1.17 [facility] Comment on above: Performed By: #### G FR #### [facility] [address] [place] [address] Anion gap [Moles/Vol] 12 mmol/L Normal 8-16 [facility] Comment on above: Performed By: #### G FR #### [facility] [address] [place], [place] [address] CO2 [Moles/Vol] 21 mmol/L Normal 21-32 [facility] Comment on above: Performed By: #### G FR #### [facility] [address] [place], [place] [address] Glucose [Mass/Vol] 114 mg/dL High 70-99 [facility] Comment on above: Performed By: #### G FR #### [facility] [address] [place], [place] [address] Urea nitrogen [Mass/Vol] 72 mg/dL High 7-18 [facility] Comment on above: Performed By: #### G FR #### [facility] [address] [place], [place] [address] Calcium [Mass/Vol] 9.1 mg/dL Normal 8.5-10.1 [facility] Comment on above: Performed By: #### G FR #### [facility] [address] [place] [address] Chloride [Moles/Vol] 109 mmol/L High 98-107 [facility] Comment on above: Performed By: #### G FR #### [facility] [address] [place] [address] Potassium [Moles/Vol] 4.9 mmol/L Normal 3.5-5.1 [facility] Comment on above: Performed By: #### G FR #### [place] [address] Sodium [Moles/Vol] 137 mmol/L Normal 136-145 [facility] Comment on above: Performed By: #### G FR #### [facility] [address] [place] [address] CONSULTon 03-28-2019 CONSULT HNO ID: [id number] Author: Cirilo Vitale III Service: Infectious Disease Author Type: Physician Type: Consults Filed: 03/28/2019 10:33 PM Note Text: INFECTIOUS DISEASE CONSULT NOTE March 28, 2019 10:22 PM REASON FOR CONSULT: UTI REFERRING PHYSICIAN: Fredrick HPI: 63 male who presented with neck and back pain related to injury. Was on keflex for possible UTI prior to admit. This was changed to ceftriaxone here. Urine culture grew very small amount of enterococcus. Today patient had acute confusion. Primary concerned due to UTI so we were consulted. Patient awakes but not good historian. is at beside, she reports that around time of admission he halso had acute confusion episode then ALLERGIES Allergen Reactions - Lyrica [Pregabalin] Swelling PAST MEDICAL HISTORY Diagnosis Date - GARRET (acute kidney injury) ([facility]) 03/24/2019 - Ankylosing spondylitis ([facility]) - CAD (coronary artery disease) - Cellulitis - Chronic combined systolic and diastolic CHF (congestive heart failure) ([facility]) 03/24/2019 - CKD (chronic kidney disease) stage 3, GFR 30-59 ml/min ([facility]) 03/24/2019 - Constipation - Diabetes ([facility]) - Gout - High phosphate levels 03/24/2019 - Hx of fracture multiple bones - Hyperkalemia 03/24/2019 - Hypoalbuminemia 03/24/2019 - Hyponatremia 03/24/2019 - Hypoxia 03/24/2019 - NSTEMI (non-ST elevated myocardial infarction) ([facility]) 03/12/2017 [facility] admit - Osteoarthritis FAMILY HISTORY Problem Relation Age of Onset - Arthritis Mother - Coronary Artery Disease Mother - Diabetes Mother - Heart Mother - Hypertension Mother - Alcohol/Drug Father - Arthritis Father - Heart Father - Hypertension Father Social History Socioeconomic History Marital status: Spouse name: Yun Number of children: 2 Years of education: Not on file Highest education level: Not on file Occupational History Not on file Social Needs Financial resource strain: Not on file Food insecurity: Worry: Not on file Inability: Not on file Transportation needs: Medical: Not on file Non-medical: Not on file Tobacco Use Smoking status: Never Smoker Smokeless tobacco: Former User Types: Chew Substance and Sexual Activity Alcohol use: No Comment: seldom Drug use: No Sexual activity: Yes Partners: Female Lifestyle Physical activity: Days per week: Not on file Minutes per session: Not on file Stress: Not on file Relationships Social connections: Talks on phone: Not on file Gets together: Not on file Attends anglican service: Not on file Active member of club or organization: Not on file Attends meetings of clubs or organizations: Not on file Relationship status: Not on file Intimate partner violence: Fear of current or ex partner: Not on file Emotionally abused: Not on file Physically abused: Not on file Forced sexual activity: Not on file Other Topics Concerns: Service: No Blood Transfusions: No Caffeine Concern: No None Occupational Exposure: No Hobby Hazards: No Sleep Concern: No Stress Concern: No Weight Concern: Yes Special Diet: No Back Care: No Exercise: No No formal Bike Helmet: No Seat Belt: Yes Self-Exams: No Social History Narrative Not on file Current Facility-Administered Medications Medication Dose Route Frequency Provider Last Rate Last Dose - vancomycin 1.25 g in D5W 250 mL (VANCOCIN) 1.25 g INTRAVENOUS q 24 HR Ra Alcala 200 mL/hr at 03/28/19 1600 1.25 g at 03/28/19 1600 - insulin lispro 6 Units pen (rapid acting) (HumaLOG KWIKPEN) 6 Units SUBCUTANEOUS w MEALS Kiera Midha 6 Units at 03/28/19 1827 - furosemide 40 mg tab(s) (LASIX) 40 mg ORAL BID 9a/5p Bravo Lamb) Ervin 40 mg at 03/28/19 1712 - hydrALAZINE 50 mg tab(s) (APRESOLINE) 50 mg ORAL q 8 H Bravo Lamb) Ervin 50 mg at 03/28/192023 - atorvastatin 40 mg tab(s) (LIPITOR) 40 mg ORAL AT BEDTIME Mariela Schaef 40 mg at 03/28/192023 - aspirin 81 mg chewable tab(s) 81 mg ORAL DAILY Mariela Schaef 81 mg at 03/28/19 1115 - polyethylene glycol 3350 17 g packet (MIRALAX, GLYCOLAX) 17 g ORAL DAILY Mariela Schaef 17 g at 03/25/19 1144 - gabapentin 200 mg cap(s) (NEURONTIN) 200 mg ORAL DAILY Lara K Scantling 200 mg at 03/28/19 1115 - HYDROcodone 5 mg - acetaminophen 325 mg tablet (NORCO) 1 tablet ORAL q 4 H PRN Lara K Scantling 1 tablet at 03/27/19 2030 - baclofen 5 mg tab(s) (LIORESAL) 5 mg ORAL TID PRN Lara K Scantling 5 mg at 03/27/19 1645 - doxazosin 2 mg tab(s) (CARDURA) 2 mg ORAL BID Dante Myers 2 mg at 03/28/192023 - carvedilol 25 mg tab(s) (COREG) 25 mg ORAL BID w MEALS Dante Myers 25 mg at 03/28/19 1712 - latanoprost 0.005 % 1 Drop (XALATAN) 1 Drop BOTH EYES AT BEDTIME Dante Myers 1 Drop at 03/28/192024 - NaCl 0.9% 3-5 mL 3-5 mL INTRAVENOUS q 12 H Dante Myers 3 mL at 03/26/19 0832 - heparin 5,000 Units injection 5,000 Units SUBCUTANEOUS q 12 H Dante Myers 5,000 Units at 03/28/192023 - ondansetron 4 mg tab(s) (ZOFRAN) 4 mg ORAL q 6 H PRN aDnte Myers Or - ondansetron (PF) 4 mg injection (ZOFRAN) 4 mg INTRAVENOUS q 6 H PRN Dante Myers - magnesium hydroxide 400 mg/5 mL 30 mL (MOM) 30 mL ORAL DAILY PRN Dante Myers - bisacodyl 10 mg suppository (DULCOLAX) 10 mg RECTAL DAILY PRN Dante Myers - acetaminophen 650 mg tab(s) (TYLENOL) 650 mg ORAL q 6 H PRN Dante Myers 650 mg at 03/25/19 0552 - dextrose 40 % 15 g 15 g ORAL PRN Dante Myers Or - glucagon 1 mg injection (GLUCAGEN) 1 mg INTRAMUSCULAR PRN Dante Myers Or - dextrose 50 % 12.5 g injection 12.5 g INTRAVENOUS PRN Dante Myers - NaCl 0.9% 3-5 mL 3-5 mL INTRAVENOUS q 12 H Vandana (Dietary Internship) Jatin 3 mL at 03/28/192024 - aluminum-magnesium hydroxide-simethicone 200-200-20 mg/5 mL 30 mL (MAALOX,MYLANTA,MAG-AL PLUS) 30 mL ORAL DAILY PRN Vandana (Dietary Internship) Jatin - docusate sodium 100 mg cap(s) (COLACE) 100 mg ORAL BID PRN Vandana (Dietary Internship) Jatin - ipratropium-albuterol 3 mL nebulizer solution (DUONEB) 3 mL INHALATION q 4 H PRN Vandana (Dietary Internship) Jatin - insulin lispro pen (rapid acting) (HumaLOG KWIKPEN) SUBCUTANEOUS w MEALS Kiera Midha 1 Units at 03/25/19 1139 - calcium acetate 667 mg tab(s) (CALPHRON) 667 mg ORAL TID w JULIANA Go (Res) MD Nahomi 667 mg at 03/28/19 1712 - insulin detemir U-100 15 Units injection (long acting) (LEVEMIR) 15 Units SUBCUTANEOUS DAILY (8 AM) Kiera Lisa 15 Units at 03/28/19 1116 ACTIVE PROBLEM LIST Uncontrolled Type 2 Diabetes Mellitus Without Complication, With Long-Term Current Use of Insulin (Hcc) Bilateral Low Back Pain Without Sciatica Chronic Constipation 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 Arteriosclerotic Heart Disease ([facility]) Glaucoma Suspect of Left Eye Hypertension, Essential Lower Leg Edema Chronic Left Hip Pain Anemia of Chronic Renal Failure, Stage 3 (Moderate) ([facility]) Acute On Chronic Diastolic Congestive Heart Failure ([facility]) Recurrent Right Pleural Effusion Pvd (Peripheral Vascular Disease) ([facility]) Altered Mental Status Uti (Urinary Tract Infection) Chronic Combined Systolic and Diastolic Chf (Congestive Heart Failure) ([facility]) Hyperkalemia Hypoxia Hypoalbuminemia Garret (Acute Kidney Injury) ([facility]) Ckd (Chronic Kidney Disease) Stage 3, Gfr 30-59 Ml/Min ([facility]) High Phosphate Levels Hyponatremia Review of Systems Constitutional: Negative for chills and fever. HENT: Negative for sore throat. Respiratory: Negative. Gastrointestinal: Negative. Genitourinary: Negative. Skin: Negative. 03/28/19 0458 03/28/19 0733 03/28/19 1708 03/28/19 1900 BP: 152/88 153/72 151/63 149/65 Pulse: 79 73 71 69 Resp: 16 16 16 17 Temp: 36.8 ?C (98.2 ?F) 36.5 ?C (97.7 ?F) 36.7 ?C (98.1 ?F) 36.8 ?C (98.2 ?F) TempSrc: Oral Oral Oral Axillary SpO2: 96% 95% 93% 93% Weight: Height: Physical Exam General: obese, lying in bed. interractive but confused Eyes: sclera anicteric, conjunctiva clear Heart: RRR without murmur Lungs: clear to auscultation bilaterally Abdomen: BS normal. Soft, nontender Extremities: no edema. 2+ pulses DATA: Lactate normal pH, Urine Date Value Ref Range Status 03/23/2019 5.5 5.0 - 8.0 Final Specific [place], Ur Date Value Ref Range Status 03/23/2019 1.019 1.005 - 1.030 Final Glucose, Urine Date Value Ref Range Status 03/23/2019 500 (A) Negative mg/dL Final Bilirubin, Urine Date Value Ref Range Status 03/23/2019 NEGATIVE Negative Final Ketones, Urine Date Value Ref Range Status 03/23/2019 NEGATIVE Negative mg/dL Final Hemoglobin/Blood,Ur Date Value Ref Range Status 07/25/2018 Negative Negative Final Protein, Urine Date Value Ref Range Status 03/24/2019 473.4 (H) 0.0 - 11.9 mg/dL Final Urobilinogen Date Value Ref Range Status 07/25/2018 Normal Normal Final Nitrites Urine Date Value Ref Range Status 03/23/2019 NEGATIVE Negative Final WBC, Urine Date Value Ref Range Status 03/23/2019 >900.0 (H) 0.0 - 5.0 /hpf Final Urine culture 03/26- endoercoccus Assessent: 1) UTI 2) encephalopathy Plan: 1) Agree with vancomycin- possibly to amoxicillin if susceptible SIGNATURE: Cirilo Vitale III, MD PATIENT NAME: Mauri Quinones DATE: March 28, 2019 TIME: 10:33 PM PAGER/CONTACT #: [phone] [facility] CONSULT PROGon 03-28-2019 CONSULT PROG HNO ID: [id number] Author: Kiera Gonzalez Service: Endocrinology Author Type: Physician Type: Consult Progress Note Filed: 03/28/2019 7:42 AM Note Text: ENDOCRINOLOGY CONSULT PROGRESS NOTE SERVICE DATE: 03/28/2019 SERVICE TIME: 7:20 AM Subjective INTERVAL HPI: Following for DM type 2. Adm with severe neck and B/L shoulder pain. Has GARRET. Notes and orders reviewed. Diet: DIET RENAL p.o intake good, following diet. Activity:Up AdLib, walking with PT Review of Systems: PAIN ASSESSMENT: has neck and shoulder pain, better overall GENERAL: No weight loss, malaise or fevers. RESPIRATORY: Negative for cough, hemoptysis, wheezing, COPD, dyspnea or shortness of breath CARDIOVASCULAR: no CP, has edema GI: No nausea, vomiting, or diarrhea ENDOCRINE: Negative for cold or heat intolerance, polyuria or polydipsia. NEURO: no numbness/weakness extremities The remainder of the review of systems is negative. Current Facility-Administered Medications Medication Dose Route Frequency - doxazosin 2 mg tab(s) (CARDURA) 2 mg ORAL BID - carvedilol 25 mg tab(s) (COREG) 25 mg ORAL BID w MEALS - latanoprost 0.005 % 1 Drop (XALATAN) 1 Drop BOTH EYES AT BEDTIME - NaCl 0.9% 3-5 mL 3-5 mL INTRAVENOUS q 12 H - heparin 5,000 Units injection 5,000 Units SUBCUTANEOUS q 12 H - ondansetron 4 mg tab(s) (ZOFRAN) 4 mg ORAL q 6 H PRN Or - ondansetron (PF) 4 mg injection (ZOFRAN) 4 mg INTRAVENOUS q 6 H PRN - magnesium hydroxide 400 mg/5 mL 30 mL (MOM) 30 mL ORAL DAILY PRN - bisacodyl 10 mg suppository (DULCOLAX) 10 mg RECTAL DAILY PRN - acetaminophen 650 mg tab(s) (TYLENOL) 650 mg ORAL q 6 H PRN - cefTRIAXone 1 g in D5W 100 mL MB+ (ROCEPHIN) 1 g INTRAVENOUS q 24 H - dextrose 40 % 15 g 15 g ORAL PRN Or - glucagon 1 mg injection (GLUCAGEN) 1 mg INTRAMUSCULAR PRN Or - dextrose 50 % 12.5 g injection 12.5 g INTRAVENOUS PRN - NaCl 0.9% 3-5 mL 3-5 mL INTRAVENOUS q 12 H - aluminum-magnesium hydroxide-simethicone 200-200-20 mg/5 mL 30 mL (MAALOX,MYLANTA,MAG-AL PLUS) 30 mL ORAL DAILY PRN - docusate sodium 100 mg cap(s) (COLACE) 100 mg ORAL BID PRN - ipratropium-albuterol 3 mL nebulizer solution (DUONEB) 3 mL INHALATION q 4 H PRN - insulin lispro pen (rapid acting) (HumaLOG KWIKPEN) SUBCUTANEOUS w MEALS - calcium acetate 667 mg tab(s) (CALPHRON) 667 mg ORAL TID w MEALS - insulin detemir U-100 15 Units injection (long acting) (LEVEMIR) 15 Units SUBCUTANEOUS DAILY (8 AM) - atorvastatin 40 mg tab(s) (LIPITOR) 40 mg ORAL AT BEDTIME - aspirin 81 mg chewable tab(s) 81 mg ORAL DAILY - polyethylene glycol 3350 17 g packet (MIRALAX, GLYCOLAX) 17 g ORAL DAILY - gabapentin 200 mg cap(s) (NEURONTIN) 200 mg ORAL DAILY - HYDROcodone 5 mg - acetaminophen 325 mg tablet (NORCO) 1 tablet ORAL q 4 H PRN - baclofen 5 mg tab(s) (LIORESAL) 5 mg ORAL TID PRN - insulin lispro 6 Units pen (rapid acting) (HumaLOG KWIKPEN) 6 Units SUBCUTANEOUS w MEALS - furosemide 40 mg tab(s) (LASIX) 40 mg ORAL BID 9a/5p - hydrALAZINE 50 mg tab(s) (APRESOLINE) 50 mg ORAL q 8 H Objective PHYSICAL EXAM: GENERAL: awake, no distress SKIN: Skin color, texture, turgor normal. No rashes or lesions. OROPHARYNX: Lips, mucosa, and tongue normal. Teeth and gums normal. Oropharynx normal. LUNGS: Lungs clear to auscultation, Good diaphragmatic excursion CARDIAC: Normal S1 and S2; no rubs, murmurs, or gallops ABDOMEN: Abdomen soft, non-tender, BS normal, No masses or organomegaly EXTREMITIES: 1+ edema B/L LE, no clubbing or skin discoloration., No ulcers NEURO: Grossly normal cognition, motor function, and cranial nerves BP 152/88 Pulse 79 Temp (Src) 98.2 (Oral) Resp 16 Ht 5' 10 (1.78m) Wt 182 lb 1.6 oz (82.6kg) SpO2 96% BMI 26.13 kg/(m2). O2 Therapy: Room Air DATA: Diagnostic tests reviewed for today's visit: Most recent labs and imaging results. Last 24 hr BS reviewed. Recent Labs 03/28/19 0653 03/28/19 0500 03/27/19 1952 03/27/19 1644 03/27/19 1057 03/27/19 0625 03/27/19 0025 GLUC -- 114* -- -- -- -- 78 GLUCOSEMETER 130* -- 92 114* 123* 89 -- Assessment/Plan Type 2 diabetes mellitus, uncontrolled, without complication, with long-term current use of insulin (HCC) POA: Yes Assessment AND Plan: 12-15 ears duration, on insulin for 5 years, Levemir 17 units qhs; off Metformin since 06/2018 due to CKD. A1c 10.4 (was 6.6 in 06/2018 before hip surgery) Checks BS q.o.d. at home, FBS 200-250's at home. BS 287 on adm, no Levemir given on 03/23 hs. Levemir resumed 10 units qam and Humalog 6 units tid started on 03/24 am. BS were high on 03/24; increased Levemir to 15 units qam and Humalog to 8 units tid with SSI on 03/25. BS better but occ <100, reduced Humalog to 6 units tid on 03/27. BS stable, cont Levemir 15 units qam and Humalog 6 units tid. Will need Rx for Humalog when goes home. Neck/sholuder pain, hx ankylosing spondylitis; pain management seeing pt GARRET (acute kidney injury) ([facility]) POA: Yes Assessment AND Plan: creat 1.86(2.09)(2.33)(2.47); baseline 1.54; per renal CKD (chronic kidney disease) stage 3, GFR 30-59 ml/min ([facility]) POA: Yes Assessment AND Plan: creat 1.54 in 07/2018 Arteriosclerotic heart disease (ASHD) POA: Yes Assessment AND Plan: hx Hypertension, essential POA: Yes Assessment AND Plan: per caprice UTI (urinary tract infection) POA: Unknown Assessment AND Plan: on A/B Chronic combined systolic and diastolic CHF (congestive heart failure) ([facility]) POA: Yes Assessment AND Plan: hx Dr Fofana #[id number] will cover on 03/29 and 03/30. SIGNATURE: Kiera Gonzalez MD PATIENT NAME: Mauri Quinones DATE: March 28, 2019 TIME: 7:42 AM PAGER: [phone] Normal [facility] Cult Urineon 03-28-2019 Cult Urine Test performed at [facility] No growth <1,000 CFU/ml. Normal [facility] Comment on above: Performed By: #### G FR #### [facility] [address] [place], [place] [address] Lactic Acidon 03-28-2019 Lactate [Moles/Vol] 0.6 mmol/L Normal 0.4-2.0 [facility] Comment on above: Performed By: #### G FR #### [address] [place], [place] [address] PROGRESSon 03-28-2019 PROGRESS HNO ID: [id number] Author: Ra Alcala Service: Hospital Medicine Author Type: Physician Type: Progress Notes Filed: 03/28/2019 2:22 PM Note Text: DEPARTMENT OF HOSPITAL MEDICINE PROGRESS NOTE SERVICE DATE: 03/28/2019 SERVICE TIME: 2:13 PM Hospital Medicine/Primary Attending: Ra Alcala MD NIGHT AND WEEKEND COVERAGE: After 7pm please page [phone] SUBJECTIVE: F/u UTI. No CP SOB NVD. Patient very obtunded today. No other issues. OBJECTIVE: PHYSICAL EXAM: BP 153/72 Pulse 73 Temp (Src) 97.7 (Oral) Resp 16 Ht 5' 10 (1.78m) Wt 182 lb 1.6 oz (82.6kg) SpO2 95% BMI 26.13 kg/(m2). O2 Therapy: Room Air General - AANDOx0, NAD, Calm CV - RRR S1 S2, No M/R/G RESP - CTA B/L No wheezes, ronchi, rales ABD - soft, NT, ND +BS ENT- no icterus Neuro- No dysarthria MEDICATIONS: Current Facility-Administered Medications Medication Dose Route Frequency - doxazosin 2 mg tab(s) (CARDURA) 2 mg ORAL BID - carvedilol 25 mg tab(s) (COREG) 25 mg ORAL BID w MEALS - latanoprost 0.005 % 1 Drop (XALATAN) 1 Drop BOTH EYES AT BEDTIME - NaCl 0.9% 3-5 mL 3-5 mL INTRAVENOUS q 12 H - heparin 5,000 Units injection 5,000 Units SUBCUTANEOUS q 12 H - ondansetron 4 mg tab(s) (ZOFRAN) 4 mg ORAL q 6 H PRN Or - ondansetron (PF) 4 mg injection (ZOFRAN) 4 mg INTRAVENOUS q 6 H PRN - magnesium hydroxide 400 mg/5 mL 30 mL (MOM) 30 mL ORAL DAILY PRN - bisacodyl 10 mg suppository (DULCOLAX) 10 mg RECTAL DAILY PRN - acetaminophen 650 mg tab(s) (TYLENOL) 650 mg ORAL q 6 H PRN - dextrose 40 % 15 g 15 g ORAL PRN Or - glucagon 1 mg injection (GLUCAGEN) 1 mg INTRAMUSCULAR PRN Or - dextrose 50 % 12.5 g injection 12.5 g INTRAVENOUS PRN - NaCl 0.9% 3-5 mL 3-5 mL INTRAVENOUS q 12 H - aluminum-magnesium hydroxide-simethicone 200-200-20 mg/5 mL 30 mL (MAALOX,MYLANTA,MAG-AL PLUS) 30 mL ORAL DAILY PRN - docusate sodium 100 mg cap(s) (COLACE) 100 mg ORAL BID PRN - ipratropium-albuterol 3 mL nebulizer solution (DUONEB) 3 mL INHALATION q 4 H PRN - insulin lispro pen (rapid acting) (HumaLOG KWIKPEN) SUBCUTANEOUS w MEALS - calcium acetate 667 mg tab(s) (CALPHRON) 667 mg ORAL TID w MEALS - insulin detemir U-100 15 Units injection (long acting) (LEVEMIR) 15 Units SUBCUTANEOUS DAILY (8 AM) - atorvastatin 40 mg tab(s) (LIPITOR) 40 mg ORAL AT BEDTIME - aspirin 81 mg chewable tab(s) 81 mg ORAL DAILY - polyethylene glycol 3350 17 g packet (MIRALAX, GLYCOLAX) 17 g ORAL DAILY - gabapentin 200 mg cap(s) (NEURONTIN) 200 mg ORAL DAILY - HYDROcodone 5 mg - acetaminophen 325 mg tablet (NORCO) 1 tablet ORAL q 4 H PRN - baclofen 5 mg tab(s) (LIORESAL) 5 mg ORAL TID PRN - insulin lispro 6 Units pen (rapid acting) (HumaLOG KWIKPEN) 6 Units SUBCUTANEOUS w MEALS - furosemide 40 mg tab(s) (LASIX) 40 mg ORAL BID 9a/5p - hydrALAZINE 50 mg tab(s) (APRESOLINE) 50 mg ORAL q 8 H - linezolid in dextrose 5% 600 mg PREMIX piggyback (ZYVOX) 600 mg INTRAVENOUS q 12 H DATA: Diagnostic tests reviewed for today's visit: CBC: No results for input(s): WBC, RBC, HB, HCT, PLT, MCV, MCH, MPV, RDW in the last 24 hours. Coags: No results for input(s): INR, APTT in the last 24 hours. Invalid input(s): PT BMP: Recent Labs 03/28/19 0500 NA 137 K 4.9 CHLOR 109* CO2 21 BUN 72* CREAT 1.86* GLUC 114* CMP: Recent Labs 03/28/19 0500 NA 137 K 4.9 CHLOR 109* CO2 21 BUN 72* CREAT 1.86* GLUC 114* CA 9.1 ANION 12 Cardiac Enzymes: No results for input(s): CK, MB, CKMB, TROPT in the last 24 hours. Liver Function, Amylase, Lipase: No results for input(s): TPROT, ALB, ALT, AST, ALKPHOS, TBILI, AMYLASE, LIPASE, LACTATE in the last 24 hours. MG/PHOS: No results for input(s): MG, P in the last 24 hours. Renal Panel: Recent Labs 03/28/19 0500 CREAT 1.86* BUN 72* GLUC 114* CA 9.1 CHLOR 109* K 4.9 CO2 21 NA 137 Heme: No results for input(s): RETICP, ABSRETIC, LD, BOBY, FE, TIBC, TRANSFERSAT in the last 24 hours. Albumin/Creat Ratio (mg/g) Date Value 01/31/2018 3,068 (H) Assessment/Plan 1.) Neck Pain 2.) Pyuria 2/2 Enterococci UTI 3.) GARRET on CKD 3 4.) DM2 5.) Acute metabolic Encephalopathy ? PLAN: - Increase insulin doses effective - Enterococci no sensitivities. - Urine culture, Add Zyvox, consult ID - EEG as well - Suspicion for stroke low. - Neck pain needs pain control VTE Prophylaxis: Heparin 5000 units Sub Q BID Disposition: Home with [facility] and [facility] Care Facility Plan of care discussed with: Patient SIGNATURE: Ra Alcala MD PATIENT NAME: Mauri Quinones DATE: March 28, 2019 TIME: 2:13 PM PAGER/CONTACT #: My Pager Normal [facility] PROGRESS HNO ID: [id number] Author: Nati Tong) CHELSI Snyder Service: Neurosurgery Author Type: Physician Strategic Partnership Manager Type: Progress Notes Filed: 03/28/2019 1:48 PM Note Text: Neurosurgery Progress Note SERVICE DATE: 03/28/2019 SUBJECTIVE: Seen and examined. Pt denies c/o severe pain. States he's 'okay' OBJECTIVE: Vitals: Temp (24hrs), Av.6 ?C (97.9 ?F), Min:36.4 ?C (97.5 ?F), Max:36.8 ?C (98.2 ?F) BP 153/72 Pulse 73 Temp 36.5 ?C (97.7 ?F) (Oral) Resp 16 Ht 177.8 cm (5' 10) Wt 82.6 kg (182 lb 1.6 oz) SpO2 95% BMI 26.13 kg/m? O2 Therapy: Room Air IANDO: Date 03/27/19699 - 03/28/1965803/28/19699 - 03/29/19 0659 Shift 8816-3636 8043-4320 1887-7607 24 Hour Total 5490-7444 7874-3753 6581-1158 24 Hour Total INTAKE PO 360 120 480 PO 360 120 480 Shift Total 360 120 480 OUTPUT Urine 200 200 200 200 Void (ml) 200 200 200 200 Urine Incontinence/Not Saved 1 x 1 x Urine Not Saved. 1 x 1 x 2 x Shift Total 200 200 200 200 Weight (kg) 82.6 82.6 82.6 82.6 82.6 82.6 82.6 82.6 MEDICATIONS Current Facility-Administered Medications Medication Dose Route Frequency - insulin lispro 6 Units pen (rapid acting) (HumaLOG KWIKPEN) 6 Units SUBCUTANEOUS w MEALS - furosemide 40 mg tab(s) (LASIX) 40 mg ORAL BID 9a/5p - hydrALAZINE 50 mg tab(s) (APRESOLINE) 50 mg ORAL q 8 H - atorvastatin 40 mg tab(s) (LIPITOR) 40 mg ORAL AT BEDTIME - aspirin 81 mg chewable tab(s) 81 mg ORAL DAILY - polyethylene glycol 3350 17 g packet (MIRALAX, GLYCOLAX) 17 g ORAL DAILY - gabapentin 200 mg cap(s) (NEURONTIN) 200 mg ORAL DAILY - HYDROcodone 5 mg - acetaminophen 325 mg tablet (NORCO) 1 tablet ORAL q 4 H PRN - baclofen 5 mg tab(s) (LIORESAL) 5 mg ORAL TID PRN - doxazosin 2 mg tab(s) (CARDURA) 2 mg ORAL BID - carvedilol 25 mg tab(s) (COREG) 25 mg ORAL BID w MEALS - latanoprost 0.005 % 1 Drop (XALATAN) 1 Drop BOTH EYES AT BEDTIME - NaCl 0.9% 3-5 mL 3-5 mL INTRAVENOUS q 12 H - heparin 5,000 Units injection 5,000 Units SUBCUTANEOUS q 12 H - ondansetron 4 mg tab(s) (ZOFRAN) 4 mg ORAL q 6 H PRN Or - ondansetron (PF) 4 mg injection (ZOFRAN) 4 mg INTRAVENOUS q 6 H PRN - magnesium hydroxide 400 mg/5 mL 30 mL (MOM) 30 mL ORAL DAILY PRN - bisacodyl 10 mg suppository (DULCOLAX) 10 mg RECTAL DAILY PRN - acetaminophen 650 mg tab(s) (TYLENOL) 650 mg ORAL q 6 H PRN - cefTRIAXone 1 g in D5W 100 mL MB+ (ROCEPHIN) 1 g INTRAVENOUS q 24 H - dextrose 40 % 15 g 15 g ORAL PRN Or - glucagon 1 mg injection (GLUCAGEN) 1 mg INTRAMUSCULAR PRN Or - dextrose 50 % 12.5 g injection 12.5 g INTRAVENOUS PRN - NaCl 0.9% 3-5 mL 3-5 mL INTRAVENOUS q 12 H - aluminum-magnesium hydroxide-simethicone 200-200-20 mg/5 mL 30 mL (MAALOX,MYLANTA,MAG-AL PLUS) 30 mL ORAL DAILY PRN - docusate sodium 100 mg cap(s) (COLACE) 100 mg ORAL BID PRN - ipratropium-albuterol 3 mL nebulizer solution (DUONEB) 3 mL INHALATION q 4 H PRN - insulin lispro pen (rapid acting) (HumaLOG KWIKPEN) SUBCUTANEOUS w MEALS - calcium acetate 667 mg tab(s) (CALPHRON) 667 mg ORAL TID w MEALS - insulin detemir U-100 15 Units injection (long acting) (LEVEMIR) 15 Units SUBCUTANEOUS DAILY (8 AM) Labs: Recent Labs 03/28/19 0500 03/27/19 0025 NA 137 137 K 4.9 5.1 CHLOR 109* 107 CO2 21 23 BUN 72* 79* CREAT 1.86* 2.09* GLUC 114* 78 ANION 12 12 CA 9.1 8.7 P -- 4.8 ALB -- 1.5* Exam: GENERAL: seemingly uncomfortable, cooperative NEURO: msp grossly intact HEENT: normocephalic, atraumatic, neck spasms in traps LUNGS: Unlabored breathing ASSESSMENT AND PLAN: Active Hospital Problems Diagnosis Date Noted - Altered mental status 03/24/2019 - UTI (urinary tract infection) 03/24/2019 - Chronic combined systolic and diastolic CHF (congestive heart failure) ([facility]) 03/24/2019 - Hyperkalemia 03/24/2019 - Hypoxia 03/24/2019 - Hypoalbuminemia 03/24/2019 - GARRET (acute kidney injury) ([facility]) 03/24/2019 - CKD (chronic kidney disease) stage 3, GFR 30-59 ml/min ([facility]) 03/24/2019 - High phosphate levels 03/24/2019 - Hyponatremia 03/24/2019 - Anemia of chronic renal failure, stage 3 (moderate) ([facility]) 03/05/2018 - Lower leg edema 01/22/2018 Overview Note: 01/15/18 negative venous dopplar - Hypertension, essential 10/23/2017 - Arteriosclerotic heart disease (ASHD) 09/23/2017 Overview Note: 01/10/19: Echo per Dr. Nunez: LV: mildly dilated, mild segmental wall motion dysfunction, EF 40%, mod conc LVH. LA enlarged. RA mildly enlarged. Mild: MV thickening, papillary muscle dysfunction MV, MVI, OMAR, PVI, atherosclerosis ascending aorta. RVSP 58mmHg. Evidence diastolic dysfunction. 04/10/[address] Pate 03/14/17 discharged [facility]: acute systolic heart failure. 2-D echocardiography performed [...] occluded posterior descending artery; coronary artery calcification. - Uncontrolled type 2 diabetes mellitus without complication, with long-term current use of insulin ([facility]) 03/21/2016 Overview Note: 09/04/17 glucose 233, BUN 25, creatinine 1.04, normal lytes 63 year old male acute neck pain following injury - neuro stable - all imaging reviewed - no acute findings. Pt has a neck strain that will require rest, ice/heat as comfortable and pain control via pain mgt recommendations - nonsurgical - f/u as needed SIGNATURE: CHELSI Adam PATIENT NAME: Mauri Quinones DATE: March 28, 2019 TIME: 1:44 PM Pager: [phone] [facility] PROGRESS HNO ID: [id number] Author: Song Gutierrez Service: Nephrology Author Type: Nurse Practitioner Type: Progress Notes Filed: 03/28/2019 10:33 AM Note Text: -- Attestation signed by Daniel Mcfadden MD at 03/28/2019 12:03 PM Renal attending: I have seen and examined the patient myself. I agree with INLAYER SILVER Song Gutierrez note in addition the changes below. Pt little more confused than baseline A/P 1- GARRET on CKD. Baseline Cr seems around 2.3-2.4 mg/dL. CKD is from DNP . UA showed 500 mg/dL protein. Pro/Cr is 6 mg/mg which is nephrotic range proteinuria. Cr is lower than baseline with holding ACEI. Cr today 1.8 mg/dL Pt cannot be on ACEI/ARB due to h/o hyperkalemia Check renal function . Will continue to monitor Kidney function 2- HTN: BP is acceptable for now. BPtarget < 130/80. Avoid ACEI/ARB due to hyperkalemia On hydralazine, Doxazosin, lasix and coreg. 3- Hyperkalemia: Pt had hyperkalemia 2 days prior to admission when he visited [place] [facility] . Pt was given Kayexalate. K is wnl Avoid ACEI/ARB. Renal diet 4- Hyperphosphatemia: continue Phoslo 667 mg one with each meal. 5- UTI: On ceftriaxone 1g IV daily Renal team will continue to follow Please call if any question at [phone] Daniel Mcfadden M.D -- Nephrology Progress Note Patient denies CP, SOB, reports stable lower extremity edema. Current Inpatient Medications: Current Facility-Administered Medications Ordered in Epic: insulin lispro 6 Units pen (rapid acting) (HumaLOG KWIKPEN) 6 Units SUBCUTANEOUS w MEALS Kiera Midha 6 Units at 03/27/19 164 furosemide 40 mg tab(s) (LASIX) 40 mg ORAL BID 9a/5p Bravo Lamb) Ervin 40 mg at 03/27/19 165 hydrALAZINE 50 mg tab(s) (APRESOLINE) 50 mg ORAL q 8 H Bravo Lamb) Ervin 50 mg at 03/28/19 0502 atorvastatin 40 mg tab(s) (LIPITOR) 40 mg ORAL AT BEDTIME Mariela Schaef 40 mg at 03/27/192028 aspirin 81 mg chewable tab(s) 81 mg ORAL DAILY Mariela Schaef 81 mg at 03/27/19 0735 polyethylene glycol 3350 17 g packet (MIRALAX, GLYCOLAX) 17 g ORAL DAILY Mariela Schaef 17 g at 03/25/19 1144 gabapentin 200 mg cap(s) (NEURONTIN) 200 mg ORAL DAILY Lara K Scantling 200 mg at 03/27/19 0733 HYDROcodone 5 mg - acetaminophen 325 mg tablet (NORCO) 1 tablet ORAL q 4 H PRN Lara K Scantling 1 tablet at 03/27/192029 baclofen 5 mg tab(s) (LIORESAL) 5 mg ORAL TID PRN Lara K Scantling 5 mg at 03/27/19 164 doxazosin 2 mg tab(s) (CARDURA) 2 mg ORAL BID Dante Myers 2 mg at 03/27/192029 carvedilol 25 mg tab(s) (COREG) 25 mg ORAL BID w MEALS Dante Myers 25 mg at 03/27/19 164 latanoprost 0.005 % 1 Drop (XALATAN) 1 Drop BOTH EYES AT BEDTIME Dante Myers 1 Drop at 03/27/192029 NaCl 0.9% 3-5 mL 3-5 mL INTRAVENOUS q 12 H Dante Myers 3 mL at 03/26/19 0832 heparin 5,000 Units injection 5,000 Units SUBCUTANEOUS q 12 H Dante Myers 5,000 Units at 03/27/19 2030 ondansetron 4 mg tab(s) (ZOFRAN) 4 mg ORAL q 6 H PRN Dante Myers Or ondansetron (PF) 4 mg injection (ZOFRAN) 4 mg INTRAVENOUS q 6 H PRN Dante Myers magnesium hydroxide 400 mg/5 mL 30 mL (MOM) 30 mL ORAL DAILY PRN Dante Myers bisacodyl 10 mg suppository (DULCOLAX) 10 mg RECTAL DAILY PRN Dante Myers acetaminophen 650 mg tab(s) (TYLENOL) 650 mg ORAL q 6 H PRN Dante Myers 650 mg at 03/25/19 0552 cefTRIAXone 1 g in D5W 100 mL MB+ (ROCEPHIN) 1 g INTRAVENOUS q 24 H Dante Myers Last Rate: 200 mL/hr at 03/27/19 0735 1 g at 03/27/19 0735 dextrose 40 % 15 g 15 g ORAL PRN Dante Myers Or glucagon 1 mg injection (GLUCAGEN) 1 mg INTRAMUSCULAR PRN Dante Myers Or dextrose 50 % 12.5 g injection 12.5 g INTRAVENOUS PRN Dante Myers NaCl 0.9% 3-5 mL 3-5 mL INTRAVENOUS q 12 H Vandana (Dietary Internship) Jatin 3 mL at 03/27/19 203 aluminum-magnesium hydroxide-simethicone 200-200-20 mg/5 mL 30 mL (MAALOX,MYLANTA,MAG-AL PLUS) 30 mL ORAL DAILY PRN Vandana (Dietary Internship) Jatin docusate sodium 100 mg cap(s) (COLACE) 100 mg ORAL BID PRN Vandana (Dietary Internship) Jatin ipratropium-albuterol 3 mL nebulizer solution (DUONEB) 3 mL INHALATION q 4 H PRN Vandana (Dietary Internship) Jatin insulin lispro pen (rapid acting) (HumaLOG KWIKPEN) SUBCUTANEOUS w MEALS Kiera Midha 1 Units at 03/25/19 1139 calcium acetate 667 mg tab(s) (CALPHRON) 667 mg ORAL TID w MEALS Donavan (Res) MD Nahomi 667 mg at 03/27/19 1645 insulin detemir U-100 15 Units injection (long acting) (LEVEMIR) 15 Units SUBCUTANEOUS DAILY (8 AM) Kiera Midha 15 Units at 03/27/19 0633 No current [facility]-ordered outpatient medications on file. Vitals: BP 153/72 Pulse 73 Temp 36.5 ?C (97.7 ?F) (Oral) Resp 16 Ht 177.8 cm (5' 10) Wt 82.6 kg (182 lb 1.6 oz) SpO2 95% BMI 26.13 kg/m? BLOOD PRESSURE RANGE: Systolic (24hrs), Av , Min:105 , Max:159 ; Diastolic (24hrs), Av, Min:65, Max:88 24HR INTAKE/OUTPUT: Intake/Output Summary (Last 24 hours) at 03/28/2019 1031 Last data filed at 03/28/2019 0911 Gross per 24 hour Intake 120 ml Output 200 ml Net -80 ml Physical exam: Constitutional: NAD, calm, cooperative Skin: no rash Heent: eomi Cardiovascular: S1, S2 without m/r/g Respiratory: CTAB without w/r/r Abdomen: +bs, soft, nt, nd Ext: +1 BLE edema Data: Labs: Recent Labs 03/28/19 0500 03/27/19 0025 NA 137 137 K 4.9 5.1 CO2 21 23 BUN 72* 79* CREAT 1.86* 2.09* CA 9.1 8.7 Assessment and Plan CKD 3 likely DN at baseline Edema LE Proteinuria HTN Hyperphosphatemia UTI ? 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 SIGNATURE: Vinny Benitez PT DATE: March 28, 2019 TIME: 3:59 PM -- PHYSICAL THERAPY MISSED VISIT SERVICE DATE: 03/28/2019 SERVICE TIME: 0834 to 0834 ROOM: [place] [address] Attempted Treatment. Patient not seen due to Declined. Reports in too much pain. Patient incontinent of bladder, staff notified for hygiene and pain medication. Will continue to attempt as appropriate. SIGNATURE: Elizabeth Brown PTA PATIENT NAME: Mauri Quinones DATE: March 28, 2019 TIME: 8:[address] [facility] CASE MANAGEMon 03-27-2019 CASE MANAGEM HNO ID: [id number] Author: Dagmar Guzman) BISMARK Chicas Service: ? Author Type: Registered Nurse Type: Care Mgt Progress Note Filed: 03/27/2019 12:17 PM Note Text: CARE MANAGEMENT PROGRESS NOTE SERVICE DATE: 03/27/2019 SERVICE TIME: 12:16 PM LOS: 3 days Needs Prior to Discharge: None Rounded with this am and aware pt does not feel he needs hhc. Dc plan cont to return home when medically ready. SIGNATURE: Dagmar Chicas RN PATIENT NAME: Mauri Quinones DATE: March 27, 2019 TIME: 12:16 PM PAGER/CONTACT #: [phone] [facility] CONSULT PROGon 03-27-2019 CONSULT PROG HNO ID: [id number] Author: Kiera Gonzalez Service: Endocrinology Author Type: Physician Type: Consult Progress Note Filed: 03/27/2019 8:13 AM Note Text: ENDOCRINOLOGY CONSULT PROGRESS NOTE SERVICE DATE: 03/27/2019 SERVICE TIME: 7:50 AM Subjective INTERVAL HPI: Following for DM type 2. Adm with severe neck and B/L shoulder pain. Has GARRET. Notes and orders reviewed. Diet: DIET RENAL p.o intake good, following diet. Activity:Up AdLib, walking with PT Review of Systems: PAIN ASSESSMENT: has neck and shoulder pain, better GENERAL: No weight loss, malaise or fevers. RESPIRATORY: Negative for cough, hemoptysis, wheezing, COPD, dyspnea or shortness of breath CARDIOVASCULAR: no CP, has edema GI: No nausea, vomiting, or diarrhea ENDOCRINE: Negative for cold or heat intolerance, polyuria or polydipsia. NEURO: no numbness/weakness extremities The remainder of the review of systems is negative. Current Facility-Administered Medications Medication Dose Route Frequency - doxazosin 2 mg tab(s) (CARDURA) 2 mg ORAL BID - carvedilol 25 mg tab(s) (COREG) 25 mg ORAL BID w MEALS - latanoprost 0.005 % 1 Drop (XALATAN) 1 Drop BOTH EYES AT BEDTIME - NaCl 0.9% 3-5 mL 3-5 mL INTRAVENOUS q 12 H - heparin 5,000 Units injection 5,000 Units SUBCUTANEOUS q 12 H - ondansetron 4 mg tab(s) (ZOFRAN) 4 mg ORAL q 6 H PRN Or - ondansetron (PF) 4 mg injection (ZOFRAN) 4 mg INTRAVENOUS q 6 H PRN - magnesium hydroxide 400 mg/5 mL 30 mL (MOM) 30 mL ORAL DAILY PRN - bisacodyl 10 mg suppository (DULCOLAX) 10 mg RECTAL DAILY PRN - acetaminophen 650 mg tab(s) (TYLENOL) 650 mg ORAL q 6 H PRN - cefTRIAXone 1 g in D5W 100 mL MB+ (ROCEPHIN) 1 g INTRAVENOUS q 24 H - dextrose 40 % 15 g 15 g ORAL PRN Or - glucagon 1 mg injection (GLUCAGEN) 1 mg INTRAMUSCULAR PRN Or - dextrose 50 % 12.5 g injection 12.5 g INTRAVENOUS PRN - NaCl 0.9% 3-5 mL 3-5 mL INTRAVENOUS q 12 H - aluminum-magnesium hydroxide-simethicone 200-200-20 mg/5 mL 30 mL (MAALOX,MYLANTA,MAG-AL PLUS) 30 mL ORAL DAILY PRN - docusate sodium 100 mg cap(s) (COLACE) 100 mg ORAL BID PRN - ipratropium-albuterol 3 mL nebulizer solution (DUONEB) 3 mL INHALATION q 4 H PRN - insulin lispro pen (rapid acting) (HumaLOG KWIKPEN) SUBCUTANEOUS w MEALS - calcium acetate 667 mg tab(s) (CALPHRON) 667 mg ORAL TID w MEALS - insulin lispro 8 Units pen (rapid acting) (HumaLOG KWIKPEN) 8 Units SUBCUTANEOUS w MEALS - insulin detemir U-100 15 Units injection (long acting) (LEVEMIR) 15 Units SUBCUTANEOUS DAILY (8 AM) - atorvastatin 40 mg tab(s) (LIPITOR) 40 mg ORAL AT BEDTIME - aspirin 81 mg chewable tab(s) 81 mg ORAL DAILY - polyethylene glycol 3350 17 g packet (MIRALAX, GLYCOLAX) 17 g ORAL DAILY - furosemide 40 mg tab(s) (LASIX) 40 mg ORAL DAILY - gabapentin 200 mg cap(s) (NEURONTIN) 200 mg ORAL DAILY - HYDROcodone 5 mg - acetaminophen 325 mg tablet (NORCO) 1 tablet ORAL q 4 H PRN - baclofen 5 mg tab(s) (LIORESAL) 5 mg ORAL TID PRN - hydrALAZINE 25 mg tab(s) (APRESOLINE) 25 mg ORAL q 8 H Objective PHYSICAL EXAM: GENERAL: awake, no distress SKIN: Skin color, texture, turgor normal. No rashes or lesions. OROPHARYNX: Lips, mucosa, and tongue normal. Teeth and gums normal. Oropharynx normal. LUNGS: Lungs clear to auscultation, Good diaphragmatic excursion CARDIAC: Normal S1 and S2; no rubs, murmurs, or gallops ABDOMEN: Abdomen soft, non-tender, BS normal, No masses or organomegaly EXTREMITIES: 1-2+ edema B/L LE, no clubbing or skin discoloration., No ulcers NEURO: Grossly normal cognition, motor function, and cranial nerves BP 181/77 Pulse 78 Temp (Src) 98.4 (Oral) Resp 18 Ht 5' 10 (1.78m) Wt 182 lb 1.6 oz (82.6kg) SpO2 95% BMI 26.13 kg/(m2). O2 Therapy: Room Air DATA: Diagnostic tests reviewed for today's visit: Most recent labs and imaging results. Last 24 hr BS reviewed. Recent Labs 03/27/19 0625 03/27/19 0025 03/26/19200103/26/19 1551 03/26/19 1053 03/26/19 0622 03/25/19 0410 GLUC -- 78 -- -- -- -- -- 217* GLUCOSEMETER 89 -- 97 87 143* 102* < > -- < > = values in this interval not displayed. Assessment/Plan Type 2 diabetes mellitus, uncontrolled, without complication, with long-term current use of insulin ([facility]) POA: Yes Assessment AND Plan: 12-15 ears duration, on insulin for 5 years, Levemir 17 units qhs; off Metformin since 06/2018 due to CKD. A1c 10.4 (was 6.6 in 06/2018 before hip surgery) Checks BS q.o.d. at home, FBS 200-250's at home. BS 287 on adm, no Levemir given on 03/23 hs. Levemir resumed 10 units qam and Humalog 6 units tid started on 03/24 am. BS were high on 03/24; increased Levemir to 15 units qam and Humalog to 8 units tid with SSI on 03/25. BS better, occ <100. Reduce Humalog to 6 units tid. Will need Rx for Humalog when goes home. Neck/sholuder pain, hx ankylosing spondylitis GARRET (acute kidney injury) ([facility]) POA: Yes Assessment AND Plan: creat 2.09(2.33)(2.47); per renal CKD (chronic kidney disease) stage 3, GFR 30-59 ml/min ([facility]) POA: Yes Assessment AND Plan: creat 1.54 in 07/2018 Arteriosclerotic heart disease (ASHD) POA: Yes Assessment AND Plan: hx Hypertension, essential POA: Yes Assessment AND Plan: per caprice UTI (urinary tract infection) POA: Unknown Assessment AND Plan: on A/B Chronic combined systolic and diastolic CHF (congestive heart failure) ([facility]) POA: Yes Assessment AND Plan: hx SIGNATURE: Kiera Gonzalez MD PATIENT NAME: Mauri Quinones DATE: March 27, 2019 TIME: 8:13 AM PAGER: [phone] Normal [facility] PROGRESSon 03-27-2019 PROGRESS HNO ID: [id number] Author: Bravo Lamb) Ervin Service: Nephrology Author Type: Physician Type: Progress Notes Filed: 03/27/2019 2:51 PM Note Text: CONSULT PROGRESS NOTE SERVICE TIME: 2:43 PM CONSULTING SERVICE: Nephrology Following for:ckd Subjective:no sob/cp no c/o today Current Facility-Administered Medications Medication Dose Route Frequency - doxazosin 2 mg tab(s) (CARDURA) 2 mg ORAL BID - carvedilol 25 mg tab(s) (COREG) 25 mg ORAL BID w MEALS - latanoprost 0.005 % 1 Drop (XALATAN) 1 Drop BOTH EYES AT BEDTIME - NaCl 0.9% 3-5 mL 3-5 mL INTRAVENOUS q 12 H - heparin 5,000 Units injection 5,000 Units SUBCUTANEOUS q 12 H - ondansetron 4 mg tab(s) (ZOFRAN) 4 mg ORAL q 6 H PRN Or - ondansetron (PF) 4 mg injection (ZOFRAN) 4 mg INTRAVENOUS q 6 H PRN - magnesium hydroxide 400 mg/5 mL 30 mL (MOM) 30 mL ORAL DAILY PRN - bisacodyl 10 mg suppository (DULCOLAX) 10 mg RECTAL DAILY PRN - acetaminophen 650 mg tab(s) (TYLENOL) 650 mg ORAL q 6 H PRN - cefTRIAXone 1 g in D5W 100 mL MB+ (ROCEPHIN) 1 g INTRAVENOUS q 24 H - dextrose 40 % 15 g 15 g ORAL PRN Or - glucagon 1 mg injection (GLUCAGEN) 1 mg INTRAMUSCULAR PRN Or - dextrose 50 % 12.5 g injection 12.5 g INTRAVENOUS PRN - NaCl 0.9% 3-5 mL 3-5 mL INTRAVENOUS q 12 H - aluminum-magnesium hydroxide-simethicone 200-200-20 mg/5 mL 30 mL (MAALOX,MYLANTA,MAG-AL PLUS) 30 mL ORAL DAILY PRN - docusate sodium 100 mg cap(s) (COLACE) 100 mg ORAL BID PRN - ipratropium-albuterol 3 mL nebulizer solution (DUONEB) 3 mL INHALATION q 4 H PRN - insulin lispro pen (rapid acting) (HumaLOG KWIKPEN) SUBCUTANEOUS w MEALS - calcium acetate 667 mg tab(s) (CALPHRON) 667 mg ORAL TID w MEALS - insulin detemir U-100 15 Units injection (long acting) (LEVEMIR) 15 Units SUBCUTANEOUS DAILY (8 AM) - atorvastatin 40 mg tab(s) (LIPITOR) 40 mg ORAL AT BEDTIME - aspirin 81 mg chewable tab(s) 81 mg ORAL DAILY - polyethylene glycol 3350 17 g packet (MIRALAX, GLYCOLAX) 17 g ORAL DAILY - furosemide 40 mg tab(s) (LASIX) 40 mg ORAL DAILY - gabapentin 200 mg cap(s) (NEURONTIN) 200 mg ORAL DAILY - HYDROcodone 5 mg - acetaminophen 325 mg tablet (NORCO) 1 tablet ORAL q 4 H PRN - baclofen 5 mg tab(s) (LIORESAL) 5 mg ORAL TID PRN - hydrALAZINE 25 mg tab(s) (APRESOLINE) 25 mg ORAL q 8 H - insulin lispro 6 Units pen (rapid acting) (HumaLOG KWIKPEN) 6 Units SUBCUTANEOUS w MEALS PHYSICAL EXAM: Physical Exam Performed: BP 159/65 Pulse 71 Temp (Src) 98.2 (Oral) Resp 16 Ht 5' 10 (1.78m) Wt 182 lb 1.6 oz (82.6kg) SpO2 97% BMI 26.13 kg/(m2). O2 Therapy: Room Air BLOOD PRESSURE RANGE: Systolic (24hrs), Av , Min:143 , Max:181 ; Diastolic (24hrs), Av, Min:65, Max:88 GENERAL: well developed, no distress ENMT lips pink oral mucosa moist EYES sclerae white PERRL SKIN: warm dry No rashes or lesions LUNGS: Lungs clear to auscultation no wheezing no crackles, Good diaphragmatic excursion respirations are even and unlabored CARDIAC: S1 and S2; no rubs, murmurs, or gallops ABDOMEN: Abdomen soft, non-tender, BS present in all four quadrants EXTREMITIES: B/l LE edema, clubbing NEURO: Grossly normal cognition, motor function. Sensation grossly intact, Cranial nerves II-XII intact HEME no cervical or axillary lymphadenopathy, no petechiae DATA: Diagnostic tests reviewed for today's visit: Most recent labs and imaging results reviewed if applicable Labs: Recent Labs 03/25/19 0410 WBC 8.79 HB 8.9* HCT 28.0* MCV 94.0 PLT 393* Recent Labs 03/27/19 0025 03/25/19 0410 NA 137 135* K 5.1 5.1 CO2 23 23 BUN 79* 83* CREAT 2.09* 2.33* CA 8.7 8.7 pH, Arterial Date Value Ref Range Status 04/13/2017 7.324 (L) 7.350 - 7.450 Final Specific [place], Ur Date Value Ref Range Status 03/23/2019 1.019 1.005 - 1.030 Final Glucose, Urine Date Value Ref Range Status 03/23/2019 500 (A) Negative mg/dL Final Bilirubin, Urine Date Value Ref Range Status 03/23/2019 NEGATIVE Negative Final Ketones, Urine Date Value Ref Range Status 03/23/2019 NEGATIVE Negative mg/dL Final Hemoglobin/Blood,Ur Date Value Ref Range Status 07/25/2018 Negative Negative Final Protein, Urine Date Value Ref Range Status 03/24/2019 473.4 (H) 0.0 - 11.9 mg/dL Final Urobilinogen, Urine Date Value Ref Range Status 03/23/2019 1.0 0.2 - 1.0 EU/dL Final Nitrites Date Value Ref Range Status 07/25/2018 Negative Negative Final Nitrites Urine Date Value Ref Range Status 03/23/2019 NEGATIVE Negative Final WBC, Urine Date Value Ref Range Status 03/23/2019 >900.0 (H) 0.0 - 5.0 /hpf Final Input / Output: 24 HR: Intake/Output Summary (Last 24 hours) at 03/27/2019 1443 Last data filed at 03/27/2019 0743 Gross per 24 hour Intake 720 ml Output 200 ml Net 520 ml IV Intake: [place]: CKD 3 likely DN at baseline Edema LE Proteinuria HTN Hyperphosphatemia UTI Increase lasix to bid for now then will likely need at least 60 mg po qd as before on discharge with close f/u bp Increase hydralazine Hold ACEI or ARB till K better Scr 2.09 back to baseline Continue phoslo monitor phos Avoid nephrotoxins overdiuresis Chart reviewed. SIGNATURE: Bravo Mueller MD PATIENT NAME: Mauri Quinones PAGER: [phone] [facility] PROGRESS HNO ID: [id number] Author: Lara Feliciano Service: Pain Management Author Type: Physician Type: Progress Notes Filed: 03/27/2019 9:42 AM Note Text: Mauri Quinones [id number] PAIN MANAGEMENT TEAM PAIN DIAGNOSIS: Neck and bilateral shoulder pain, Hx lumbar ankylosing spondylitis, OA. DM neuropathy Pain Description: Patient feels better, complains of some right shoulder pain. Slept better INTERVAL HPI: Evaluated by PT with recommendation for home therapy 03/26 neurosurgery evaluation recommendation for conservative treatment. Patient with history ankylosing spondylitis with probable soft tissue injury to his neck and shoulders. No neurologic deficit. MRI images to be reviewed SUBJECTIVE: HPI: This is a 63 year old male with hx poorly controlled DM2 (HbA1C 10.3), CKD 3/4, CAD/CABG 2016, chronic pain 2/2 OA, ankylosing spondylitis, recent [place] admission neck pain (imaging reported no acute findings), UTI presented 03/24 with worsneing neck pain. No focal neurologic deficits; no recent fall. In ER, patient had: Chest x-ray: Negative, CT brain: Negative for anything acute. 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 He lives with his and dtr; ambulates with a walker or cane. He does not use tobacco, ETOH or illicit meds. 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 03/22/2019 2 03/22/2019 Hydrocodone-Acetamin 5-325 MG 30 4 Ma Ter [id number] [place] (7058) 0 37.50 [facility] [place] 12/04/2018 1 02/04/2018 Gabapentin 300 MG Capsule 180 90 Ma Bar [id number] [place] (4661) 3 [facility] [place] 09/12/2018 1 02/04/2018 Gabapentin 300 MG Capsule 180 90 Ma Bar [id number] [facility] (1327) 2 [place] 09/02/2018 1 08/29/2018 Hydrocodone-Acetamin 5-325 MG 42 7 Mi Lyk [id number] [facility] (1327) 0 30.00 [facility] [place] 08/17/2018 1 08/08/2018 Hydrocodone-Acetamin 5-325 MG 42 7 Ja Gli [id number] [facility] (1327) 0 30.00 [facility] [place] 07/27/2018 1 07/23/2018 Hydrocodone-Acetamin 5-325 MG 42 7 Je Dul [id number] [facility] (1327) 0 30.00 [facility] [place] MEDICATIONS Current Facility-Administered Medications Medication Dose Route Frequency Provider Last Rate Last Dose - insulin lispro 6 Units pen (rapid acting) (HumaLOG KWIKPEN) 6 Units SUBCUTANEOUS w MEALS Kiera Midha - hydrALAZINE 25 mg tab(s) (APRESOLINE) 25 mg ORAL q 8 H Daniel Mcfadden MD 25 mg at 03/27/19 0514 - atorvastatin 40 mg tab(s) (LIPITOR) 40 mg ORAL AT BEDTIME Mariela Schaef 40 mg at 03/26/192026 - aspirin 81 mg chewable tab(s) 81 mg ORAL DAILY Mariela Schaef 81 mg at 03/27/19 0735 - polyethylene glycol 3350 17 g packet (MIRALAX, GLYCOLAX) 17 g ORAL DAILY Mariela Schaef 17 g at 03/25/19 1144 - furosemide 40 mg tab(s) (LASIX) 40 mg ORAL DAILY Daniel Mcfadden MD 40 mg at 03/27/19 0736 - gabapentin 200 mg cap(s) (NEURONTIN) 200 mg ORAL DAILY Lara K Scantling 200 mg at 03/27/19 0733 - HYDROcodone 5 mg - acetaminophen 325 mg tablet (NORCO) 1 tablet ORAL q 4 H PRN Lara K Scantling 1 tablet at 03/26/192026 - baclofen 5 mg tab(s) (LIORESAL) 5 mg ORAL TID PRN Lara K Scantling 5 mg at 03/27/19 0735 - doxazosin 2 mg tab(s) (CARDURA) 2 mg ORAL BID Dante Myers 2 mg at 03/27/19 0734 - carvedilol 25 mg tab(s) (COREG) 25 mg ORAL BID w MEALS Dante Myers 25 mg at 03/27/19 0735 - latanoprost 0.005 % 1 Drop (XALATAN) 1 Drop BOTH EYES AT BEDTIME Dante Myers 1 Drop at 03/26/192026 - NaCl 0.9% 3-5 mL 3-5 mL INTRAVENOUS q 12 H Dante Myers 3 mL at 03/26/19 0832 - heparin 5,000 Units injection 5,000 Units SUBCUTANEOUS q 12 H Dante Myers 5,000 Units at 03/27/19 0733 - ondansetron 4 mg tab(s) (ZOFRAN) 4 mg ORAL q 6 H PRN Dante Myers Or - ondansetron (PF) 4 mg injection (ZOFRAN) 4 mg INTRAVENOUS q 6 H PRN Dante Myers - magnesium hydroxide 400 mg/5 mL 30 mL (MOM) 30 mL ORAL DAILY PRN Dante Myers - bisacodyl 10 mg suppository (DULCOLAX) 10 mg RECTAL DAILY PRN Dante Myers - acetaminophen 650 mg tab(s) (TYLENOL) 650 mg ORAL q 6 H PRN Dante Myers 650 mg at 03/25/19 0552 - cefTRIAXone 1 g in D5W 100 mL MB+ (ROCEPHIN) 1 g INTRAVENOUS q 24 H Dante Myers 200 mL/hr at 03/27/19 0735 1 g at 03/27/19 0735 - dextrose 40 % 15 g 15 g ORAL PRN Dante Myers Or - glucagon 1 mg injection (GLUCAGEN) 1 mg INTRAMUSCULAR PRN Dante Myers Or - dextrose 50 % 12.5 g injection 12.5 g INTRAVENOUS PRN Dante Myers - NaCl 0.9% 3-5 mL 3-5 mL INTRAVENOUS q 12 H Vandana (Dietary Internship) Jatin 3 mL at 03/27/19 0735 - aluminum-magnesium hydroxide-simethicone 200-200-20 mg/5 mL 30 mL (MAALOX,MYLANTA,MAG-AL PLUS) 30 mL ORAL DAILY PRN Vandana (Dietary Internship) Jatin - docusate sodium 100 mg cap(s) (COLACE) 100 mg ORAL BID PRN Vandana (Dietary Internship) Jatin - ipratropium-albuterol 3 mL nebulizer solution (DUONEB) 3 mL INHALATION q 4 H PRN Vandana (Jocelyn) Jatin - insulin lispro pen (rapid acting) (HumaLOG KWIKPEN) SUBCUTANEOUS w MEALS Kiera Mid 1 Units at 03/25/19 1139 - calcium acetate 667 mg tab(s) (CALPHRON) 667 mg ORAL TID w MEALS Donavan (ResAnette Comer MD 667 mg at 03/27/19 0735 - insulin detemir U-100 15 Units injection (long acting) (LEVEMIR) 15 Units SUBCUTANEOUS DAILY (8 AM) Kiera Midha 15 Units at 03/27/19 0633 Medications Prior to Admission: atorvastatin (LIPITOR) 40 mg tablet Take 40 mg by mouth once daily. Disp: Rfl: cephALEXin (KEFLEX) 500 mg capsule Take 500 mg by mouth twice daily. Disp: Rfl: HYDROcodone-acetaminophen (NORCO) 5-325 mg per tablet Take 1 tablet by mouth every 6 hours as needed. Disp: Rfl: sodium polystyrene sulfonate, with sorbitol, (SPS) 15-20 gram/60 mL susp suspension Take 15 g by mouth once daily. X 5 days (started 03/22/19) Disp: Rfl: gabapentin (NEURONTIN) 600 mg tablet Take 1 tablet by mouth once daily for 30 days. (Patient taking differently: Take 300 mg by mouth once daily. ) Disp: 30 tablet Rfl: 0 insulin detemir U-100 (LEVEMIR FLEXTOUCH U-100 INSULN) 100 unit/mL (3 mL) inpn injection Inject 17 Units subcutaneously daily at bedtime. Disp: Rfl: doxazosin (CARDURA) 4 mg tablet Take 0.5 tablets by mouth twice daily. Disp: Rfl: 11 furosemide (LASIX) 40 mg tablet Take 1 tablet by mouth once daily. Disp: Rfl: Taking carvedilol (COREG) 25 mg tablet Take 25 mg by mouth twice daily with meals. Disp: Rfl: Taking MULTIVITAMIN/IRON/FOLIC ACID (DAILY MULTI ORAL) Take 2 Each by mouth once daily. Disp: Rfl: Taking aspirin, enteric coated (ASPIR-81) 81 mg EC tablet Take 1 tablet by mouth once daily. Disp: 90 tablet Rfl: 3 Not Taking latanoprost (XALATAN) 0.005 % ophthalmic solution Use 1 Drop in both eyes daily at bedtime. into affected eye(s). Disp: Rfl: 0 Taking PAST MEDICAL HISTORY PAST MEDICAL HISTORY Diagnosis Date - GARRET (acute kidney injury) ([facility]) 03/24/2019 - Ankylosing spondylitis ([facility]) - CAD (coronary artery disease) - Cellulitis - Chronic combined systolic and diastolic CHF (congestive heart failure) ([facility]) 03/24/2019 - CKD (chronic kidney disease) stage 3, GFR 30-59 ml/min ([facility]) 03/24/2019 - Constipation - Diabetes ([facility]) - Gout - High phosphate levels 03/24/2019 - Hx of fracture multiple bones - Hyperkalemia 03/24/2019 - Hypoalbuminemia 03/24/2019 - Hyponatremia 03/24/2019 - Hypoxia 03/24/2019 - NSTEMI (non-ST elevated myocardial infarction) ([facility]) 03/12/2017 [facility] admit - Osteoarthritis PAST SURGICAL HISTORY PAST SURGICAL HISTORY Procedure Laterality Date - CORONARY ARTERY BYPASS GRAFT 04/12/2017 x 3 - HIP SURGERY HX Right pin - KNEE ARTHROSCOPY Left x2 - KNEE SURGERY HX Right TKR, right, arthoscopy x3 - PAST SURGICAL HISTORY OF 09/07/2017 08/15/17 fx radius in 2 places; plate and screws.Plate and screws 09/07/17 [facility] - TOE SURGERY HX Right - TOTAL HIP REPLACEMENT Right ALLERGIES Allergen Reactions - Lyrica [Pregabalin] Swelling FAMILY HISTORY Problem Relation Age of Onset - Arthritis Mother - Coronary Artery Disease Mother - Diabetes Mother - Heart Mother - Hypertension Mother - Alcohol/Drug Father - Arthritis Father - Heart Father - Hypertension Father Social History Tobacco Use - Smoking status: Never Smoker - Smokeless tobacco: Former User Types: Chew Substance Use Topics - Alcohol use: No Comment: seldom - Drug use: No Social History Social History Narrative Not on file REVIEW OF SYSTEMS: all of the following reviewed and negative except as noted below: GENERAL: no fever, chills, sweats, weight loss, +fatigue, generalized weakness HEENT: no headache, vision changes, eye discomfort, hearing change, ear discomfort, sinus pain, nasal discharge or congestion, oral lesions, soreness, dental problem NECK: See HPI CHEST: no shortness of breath, dyspnea on exertion, wheezing, cough, sputum production or chest pain HEART: no chest pain, palpitations, syncope ABDOMEN: no nausea, vomiting, constipation, diarrhea, abdominal pain : no dysuria, +urgency, frequency,no history of stones, incontinence NEURO: no confusion or alteration in consciousness, slurred speech, seizure, focal weakness EXTREMITIES: no new pain, edema, change in ROM HEME: no new adenopathy, bruises, petechiae PSYCH: no depression, anxiety, agitation PAIN PSYCHIATRIC EXAM: GENERAL: alert, oriented to person, place, time JUDGMENT AND INSIGHT: intact APPEARANCE: neatly groomed DEMEANOR: coooperative, not hostile, mistrustful, preoccupied, or demanding ACTIVITY: normal, not hyperactive or hypoactive, no tremors, tics EYE CONTACT: normal SPEECH: normal, rate, volume, articulation, coherence, spontaneity MOOD: normal, without overt sadness, grief, anxiety, appropriate to situation IDEATION: normal and without suicidal or homicidal ideation MEMORY: intact OBJECTIVE PHYSICAL EXAMINATION: see below for new or abnormal findings BP 181/77 Pulse 78 Temp (Src) 98.4 (Oral) Resp 18 Ht 5' 10 (1.78m) Wt 182 lb 1.6 oz (82.6kg) SpO2 95% BMI 26.13 kg/(m2). O2 Therapy: Room Air GENERAL: well nourished and developed; no acute distress; alert and oriented x 3; intact judgement and insight HEENT: no evidence of trauma; cranial nerves intact; eyes clear EOMI; no hearing deficits apparent; nasal passages unremarkable; throat and mucous membranes clear NECK: supple without lymphadenopathy; no JVD; no thyromegaly CHEST: clear bilaterally to auscultation; normal chest movement; no rales or rhonchi HEART: regular rate and rhythm, normal S1 and S2, no murmurs, clicks, rubs, or gallops ABDOMEN: soft; nondistended; bowel sounds present; no hepatomegaly; no splenomegaly; no tenderness EXTREMITIES: no evidence of clubbing; no cyanosis; no deformity; no joint effusion; no edema NEURO: cranial nerves intact; no focal deficits; no confusion; no tremor; sensorium normal; b/l hand grasp 5/5 SKIN: no rash; no skin breakdown; no decubitus lesions HEME: no bruising; no adenopathy PSYCH: no evidence of depression; no anxiety; no agitation; no apparent hallucinations DATA: Diagnostic tests reviewed: Most recent labs and imaging results. CBC: No results for input(s): WBC, RBC, HB, HCT, PLT, MCV, MCH, MPV, RDW in the last 24 hours. CMP: Recent Labs 03/27/19 0025 NA 137 K 5.1 CHLOR 107 CO2 23 BUN 79* CREAT 2.09* GLUC 78 CA 8.7 ANION 12 Heme: No results for input(s): RETICP, ABSRETIC, LD, BOBY, FE, TIBC, TRANSFERSAT in the last 24 hours. 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 Arteriosclerotic Heart Disease ([facility]) Glaucoma Suspect of Left Eye Hypertension, Essential Lower Leg Edema Chronic Left Hip Pain Anemia of Chronic Renal Failure, Stage 3 (Moderate) ([facility]) Acute On Chronic Diastolic Congestive Heart Failure ([facility]) Recurrent Right Pleural Effusion Pvd (Peripheral Vascular Disease) ([facility]) Altered Mental Status Uti (Urinary Tract Infection) Chronic Combined Systolic and Diastolic Chf (Congestive Heart Failure) ([facility]) Hyperkalemia Hypoxia Hypoalbuminemia Garret (Acute Kidney Injury) ([facility]) Ckd (Chronic Kidney Disease) Stage 3, Gfr 30-59 Ml/Min ([facility]) High Phosphate Levels Hyponatremia Diet Orders Placed This Encounter DIET RENAL LAST BOWEL MOVEMENT Number of BMs: 1 (03/26/192027) Prior to Admission Opiate Status Episodic Outpatient Pain Management: No. Rx at D/C: No Rx on chart: No OARRS: see above- most recent 03/22 [place] 5/325 # 30 (4ds); 12/04 Neurontin 300mg # 180 (90ds) Pain Regimen/Notes (Opiate use last 24 hrs): APAP 650mg po q6h prn x 0 Neurontin 200 mg ?1 Baclofen 5 mg ?1 [place] 5/325?1 PLAN: Pt admitted with worsening neck and bilateral shoulder pain; defer diagnostic w/u to primary team. Need to review recent MRI from [place]. Appreciate neurosurgery evaluation. No neurologic deficits. Probable soft tissue injury to his neck and shoulders Pt with hx chronic multifactorial pain 2/2 OA, anklylosing spondylitis and DM neuropathy Neurontin 200mg po qd (reduced dose with CKD 3/4; baseline creatinine 2.3?2.4 APAP 650mg po q6h prn Continue [place] 5/325 one po q4h prn mod/severe pain- minimal use Baclofen 5mg po tid prn Appreciate PT evaluation; recommendation for home discharge Patient will not need prescription. Stable for discharge from pain standpoint. Will sign off; our team available as needed Lara Feliciano MD [facility] PROGRESS HNO ID: [id number] Author: Ra Alcala Service: Hospital Medicine Author Type: Physician Type: Progress Notes Filed: 03/27/2019 9:27 AM Note Text: DEPARTMENT OF HOSPITAL MEDICINE PROGRESS NOTE SERVICE DATE: 03/27/2019 SERVICE TIME: 9:25 AM Hospital Medicine/Primary Attending: Ra Alcala MD NIGHT AND WEEKEND COVERAGE: After 7pm please page [phone] SUBJECTIVE: F/u neck pain. No CP SOB NVD. OBJECTIVE: PHYSICAL EXAM: BP 181/77 Pulse 78 Temp (Src) 98.4 (Oral) Resp 18 Ht 5' 10 (1.78m) Wt 182 lb 1.6 oz (82.6kg) SpO2 95% BMI 26.13 kg/(m2). O2 Therapy: Room Air General - AANDOx3, NAD, Calm CV - RRR S1 S2, No M/R/G RESP - CTA B/L No wheezes, ronchi, rales ABD - soft, NT, ND +BS ENT- no icterus Neuro- No dysarthria MEDICATIONS: Current Facility-Administered Medications Medication Dose Route Frequency - doxazosin 2 mg tab(s) (CARDURA) 2 mg ORAL BID - carvedilol 25 mg tab(s) (COREG) 25 mg ORAL BID w MEALS - latanoprost 0.005 % 1 Drop (XALATAN) 1 Drop BOTH EYES AT BEDTIME - NaCl 0.9% 3-5 mL 3-5 mL INTRAVENOUS q 12 H - heparin 5,000 Units injection 5,000 Units SUBCUTANEOUS q 12 H - ondansetron 4 mg tab(s) (ZOFRAN) 4 mg ORAL q 6 H PRN Or - ondansetron (PF) 4 mg injection (ZOFRAN) 4 mg INTRAVENOUS q 6 H PRN - magnesium hydroxide 400 mg/5 mL 30 mL (MOM) 30 mL ORAL DAILY PRN - bisacodyl 10 mg suppository (DULCOLAX) 10 mg RECTAL DAILY PRN - acetaminophen 650 mg tab(s) (TYLENOL) 650 mg ORAL q 6 H PRN - cefTRIAXone 1 g in D5W 100 mL MB+ (ROCEPHIN) 1 g INTRAVENOUS q 24 H - dextrose 40 % 15 g 15 g ORAL PRN Or - glucagon 1 mg injection (GLUCAGEN) 1 mg INTRAMUSCULAR PRN Or - dextrose 50 % 12.5 g injection 12.5 g INTRAVENOUS PRN - NaCl 0.9% 3-5 mL 3-5 mL INTRAVENOUS q 12 H - aluminum-magnesium hydroxide-simethicone 200-200-20 mg/5 mL 30 mL (MAALOX,MYLANTA,MAG-AL PLUS) 30 mL ORAL DAILY PRN - docusate sodium 100 mg cap(s) (COLACE) 100 mg ORAL BID PRN - ipratropium-albuterol 3 mL nebulizer solution (DUONEB) 3 mL INHALATION q 4 H PRN - insulin lispro pen (rapid acting) (HumaLOG KWIKPEN) SUBCUTANEOUS w MEALS - calcium acetate 667 mg tab(s) (CALPHRON) 667 mg ORAL TID w MEALS - insulin detemir U-100 15 Units injection (long acting) (LEVEMIR) 15 Units SUBCUTANEOUS DAILY (8 AM) - atorvastatin 40 mg tab(s) (LIPITOR) 40 mg ORAL AT BEDTIME - aspirin 81 mg chewable tab(s) 81 mg ORAL DAILY - polyethylene glycol 3350 17 g packet (MIRALAX, GLYCOLAX) 17 g ORAL DAILY - furosemide 40 mg tab(s) (LASIX) 40 mg ORAL DAILY - gabapentin 200 mg cap(s) (NEURONTIN) 200 mg ORAL DAILY - HYDROcodone 5 mg - acetaminophen 325 mg tablet (NORCO) 1 tablet ORAL q 4 H PRN - baclofen 5 mg tab(s) (LIORESAL) 5 mg ORAL TID PRN - hydrALAZINE 25 mg tab(s) (APRESOLINE) 25 mg ORAL q 8 H - insulin lispro 6 Units pen (rapid acting) (HumaLOG KWIKPEN) 6 Units SUBCUTANEOUS w MEALS DATA: Diagnostic tests reviewed for today's visit: CBC: No results for input(s): WBC, RBC, HB, HCT, PLT, MCV, MCH, MPV, RDW in the last 24 hours. Coags: No results for input(s): INR, APTT in the last 24 hours. Invalid input(s): PT BMP: Recent Labs 03/27/19 002 NA 137 K 5.1 CHLOR 107 CO2 23 BUN 79* CREAT 2.09* GLUC 78 CMP: Recent Labs 03/27/19 002 NA 137 K 5.1 CHLOR 107 CO2 23 BUN 79* CREAT 2.09* GLUC 78 CA 8.7 ANION 12 Cardiac Enzymes: No results for input(s): CK, MB, CKMB, TROPT in the last 24 hours. Liver Function, Amylase, Lipase: Recent Labs 03/27/19 002 ALB 1.5* MG/PHOS: Recent Labs 03/27/19 0025 P 4.8 Renal Panel: Recent Labs 03/27/19 0025 CREAT 2.09* BUN 79* GLUC 78 CA 8.7 P 4.8 CHLOR 107 K 5.1 CO2 23 NA 137 Heme: No results for input(s): RETICP, ABSRETIC, LD, BOBY, FE, TIBC, TRANSFERSAT in the last 24 hours. Albumin/Creat Ratio (mg/g) Date Value 01/31/2018 3,068 (H) Assessment/Plan 1.) Neck Pain 2.) Pyuria 3.) GARRET on CKD 3 4.) DM2 ? PLAN: - Increase insulin doses effective - No real symptoms of UTI so if pyuria clears I will just DC Abx - Neck pain needs pain control VTE Prophylaxis: Heparin 5000 units Sub Q BID Disposition: Home with [facility] Plan of care discussed with: Patient SIGNATURE: Ra Alcala MD PATIENT NAME: Mauri Quinones DATE: March 27, 2019 TIME: 9:25 AM PAGER/CONTACT #: My Pager Normal [facility] Renal Panelon 03-27-2019 Creatinine [Mass/Vol] 2.09 mg/dL High 0.67-1.17 [facility] Comment on above: Performed By: #### G FR #### [facility] [address] [place], [place] [address] Phosphate [Mass/Vol] 4.8 mg/dL Normal 2.5-4.9 [facility] Comment on above: Performed By: #### G FR #### [facility] [address] [place], [place] [address] Albumin [Mass/Vol] 1.5 g/dL Low 3.4-5.0 [facility] Comment on above: Performed By: #### G FR #### [facility] [address] [place], [place] [address] Anion gap [Moles/Vol] 12 mmol/L Normal 8-16 [facility] Comment on above: Performed By: #### G FR #### [facility] [address] [place], [place] [address] CO2 [Moles/Vol] 23 mmol/L Normal 21-32 [facility] Comment on above: Performed By: #### G FR #### [facility] [address] [place], [place] [address] Glucose [Mass/Vol] 78 mg/dL Normal 70-99 [facility] Comment on above: Performed By: #### G FR #### [facility] [address] [place], [place] [address] Calcium [Mass/Vol] 8.7 mg/dL Normal 8.5-10.1 [facility] Comment on above: Performed By: #### G FR #### [facility] [address] [place], [place] [address] Urea nitrogen [Mass/Vol] 79 mg/dL High 7-18 [facility] Comment on above: Performed By: #### G FR #### [facility] [address] [place], [place] [address] Chloride [Moles/Vol] 107 mmol/L Normal 98-107 [facility] Comment on above: Performed By: #### G FR #### [facility] [address] [place], [place] [address] Potassium [Moles/Vol] 5.1 mmol/L Normal 3.5-5.1 [facility] Comment on above: Performed By: #### G FR #### [facility] [address] [place], [place] [address] Sodium [Moles/Vol] 137 mmol/L Normal 136-145 [facility] Comment on above: Performed By: #### G FR #### [address] [address] CONSULTon 03-26-2019 CONSULT HNO ID: [id number] Author: Anibal Sexton Service: Neurosurgery Author Type: Physician Type: Consults Filed: 03/26/2019 7:52 AM Note Text: CONSULT: NEUROSURGERY SERVICE SERVICE DATE: 03/26/2019 SERVICE TIME: 7:38 AM' REASON FOR CONSULT: Neck pain REQUESTING PHYSICIAN: Hospitalist PRIMARY CARE PHYSICIAN: Aditya Davis PA-C Subjective Mr. Quinones is a 63 year old male who presents for neck pain. ! 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 No weakness or numbness. History of spinal ankylosing spondylitis. Had MRI at [facility] that was not sent with him and is not available for review. FUNCTIONAL STATUS: Independent PAST MEDICAL HISTORY Diagnosis Date - GARRET (acute kidney injury) ([facility]) 03/24/2019 - Ankylosing spondylitis ([facility]) - CAD (coronary artery disease) - Cellulitis - Chronic combined systolic and diastolic CHF (congestive heart failure) ([facility]) 03/24/2019 - CKD (chronic kidney disease) stage 3, GFR 30-59 ml/min ([facility]) 03/24/2019 - Constipation - Diabetes ([facility]) - Gout - High phosphate levels 03/24/2019 - Hx of fracture multiple bones - Hyperkalemia 03/24/2019 - Hypoalbuminemia 03/24/2019 - Hyponatremia 03/24/2019 - Hypoxia 03/24/2019 - NSTEMI (non-ST elevated myocardial infarction) ([facility]) 03/12/2017 [facility] admit - Osteoarthritis PAST SURGICAL HISTORY Procedure [...] [facility] - TOE SURGERY HX Right - TOTAL HIP REPLACEMENT Right FAMILY HISTORY Problem Relation Age of Onset - Arthritis Mother - Coronary Artery Disease Mother - Diabetes Mother - Heart Mother - Hypertension Mother - Alcohol/Drug Father - Arthritis Father - Heart Father - Hypertension Father Social History Tobacco Use - Smoking status: Never Smoker - Smokeless tobacco: Former User Types: Chew Substance Use Topics - Alcohol use: No Comment: seldom - Drug use: No Medications Prior to Admission: atorvastatin (LIPITOR) 40 mg tablet Take 40 mg by mouth once daily. Disp: Rfl: cephALEXin (KEFLEX) 500 mg capsule Take 500 mg by mouth twice daily. Disp: Rfl: HYDROcodone-acetaminophen (NORCO) 5-325 mg per tablet Take 1 tablet by mouth every 6 hours as needed. Disp: Rfl: sodium polystyrene sulfonate, with sorbitol, (SPS) 15-20 gram/60 mL susp suspension Take 15 g by mouth once daily. X 5 days (started 03/22/19) Disp: Rfl: gabapentin (NEURONTIN) 600 mg tablet Take 1 tablet by mouth once daily for 30 days. (Patient taking differently: Take 300 mg by mouth once daily. ) Disp: 30 tablet Rfl: 0 insulin detemir U-100 (LEVEMIR FLEXTOUCH U-100 INSULN) 100 unit/mL (3 mL) inpn injection Inject 17 Units subcutaneously daily at bedtime. Disp: Rfl: doxazosin (CARDURA) 4 mg tablet Take 0.5 tablets by mouth twice daily. Disp: Rfl: 11 furosemide (LASIX) 40 mg tablet Take 1 tablet by mouth once daily. Disp: Rfl: Taking carvedilol (COREG) 25 mg tablet Take 25 mg by mouth twice daily with meals. Disp: Rfl: Taking MULTIVITAMIN/IRON/FOLIC ACID (DAILY MULTI ORAL) Take 2 Each by mouth once daily. Disp: Rfl: Taking aspirin, enteric coated (ASPIR-81) 81 mg EC tablet Take 1 tablet by mouth once daily. Disp: 90 tablet Rfl: 3 Not Taking latanoprost (XALATAN) 0.005 % ophthalmic solution Use 1 Drop in both eyes daily at bedtime. into affected eye(s). Disp: Rfl: 0 Taking Current Facility-Administered Medications Medication Dose Route Frequency - doxazosin 2 mg tab(s) (CARDURA) 2 mg ORAL BID - carvedilol 25 mg tab(s) (COREG) 25 mg ORAL BID w MEALS - latanoprost 0.005 % 1 Drop (XALATAN) 1 Drop BOTH EYES AT BEDTIME - NaCl 0.9% 3-5 mL 3-5 mL INTRAVENOUS q 12 H - heparin 5,000 Units injection 5,000 Units SUBCUTANEOUS q 12 H - ondansetron 4 mg tab(s) (ZOFRAN) 4 mg ORAL q 6 H PRN Or - ondansetron (PF) 4 mg injection (ZOFRAN) 4 mg INTRAVENOUS q 6 H PRN - magnesium hydroxide 400 mg/5 mL 30 mL (MOM) 30 mL ORAL DAILY PRN - bisacodyl 10 mg suppository (DULCOLAX) 10 mg RECTAL DAILY PRN - acetaminophen 650 mg tab(s) (TYLENOL) 650 mg ORAL q 6 H PRN - cefTRIAXone 1 g in D5W 100 mL MB+ (ROCEPHIN) 1 g INTRAVENOUS q 24 H - dextrose 40 % 15 g 15 g ORAL PRN Or - glucagon 1 mg injection (GLUCAGEN) 1 mg INTRAMUSCULAR PRN Or - dextrose 50 % 12.5 g injection 12.5 g INTRAVENOUS PRN - NaCl 0.9% 3-5 mL 3-5 mL INTRAVENOUS q 12 H - aluminum-magnesium hydroxide-simethicone 200-200-20 mg/5 mL 30 mL (MAALOX,MYLANTA,MAG-AL PLUS) 30 mL ORAL DAILY PRN - docusate sodium 100 mg cap(s) (COLACE) 100 mg ORAL BID PRN - ipratropium-albuterol 3 mL nebulizer solution (DUONEB) 3 mL INHALATION q 4 H PRN - insulin lispro pen (rapid acting) (HumaLOG KWIKPEN) SUBCUTANEOUS w MEALS - calcium acetate 667 mg tab(s) (CALPHRON) 667 mg ORAL TID w MEALS - insulin lispro 8 Units pen (rapid acting) (HumaLOG KWIKPEN) 8 Units SUBCUTANEOUS w MEALS - insulin detemir U-100 15 Units injection (long acting) (LEVEMIR) 15 Units SUBCUTANEOUS DAILY (8 AM) - atorvastatin 40 mg tab(s) (LIPITOR) 40 mg ORAL AT BEDTIME - aspirin 81 mg chewable tab(s) 81 mg ORAL DAILY - polyethylene glycol 3350 17 g packet (MIRALAX, GLYCOLAX) 17 g ORAL DAILY - furosemide 40 mg tab(s) (LASIX) 40 mg ORAL DAILY - gabapentin 200 mg cap(s) (NEURONTIN) 200 mg ORAL DAILY - HYDROcodone 5 mg - acetaminophen 325 mg tablet (NORCO) 1 tablet ORAL q 4 H PRN - baclofen 5 mg tab(s) (LIORESAL) 5 mg ORAL TID PRN Allergies As of Date: 03/23/2019 Allergen Noted Reaction LYRICA [PREGABALIN] 03/23/2017 Swelling Fully Assessed 03/23/2019 COMPLETE REVIEW OF SYSTEMS: GENERAL: No weight loss, malaise or fevers. RESPIRATORY: Negative for cough, hemoptysis, wheezing, COPD, dyspnea or shortness of breath CARDIOVASCULAR: no CP, has edema GI: No nausea, vomiting, or diarrhea ENDOCRINE: Negative for cold or heat intolerance, polyuria or polydipsia. NEURO: no numbness/weakness extremities The remainder of the review of systems is negative Objective PHYSICAL EXAM: Physical Exam Performed: BP 157/80 Pulse 71 Temp (Src) 98.4 (Oral) Resp 16 Ht 5' 10 (1.78m) Wt 185 lb (83.9kg) SpO2 95% BMI 26.54 kg/(m2). O2 Therapy: Room Air Awake and alert in no distress. Reports improvement of neck pain. Oriented X3. Speech normal. Cranial nerves 2-12 normal. Nosensory deficit throughout. Moves large and small muscles of upper and lower extremities normally. DTRs normal. No pathological reflexes. Mild tenderness in R posterior neck. Mild restriction of rotation of head. DATA: Diagnostic tests reviewed for today's visit: [facility] or disc her[facility]iation but ankylosing spondylitis. We need images sent for review. Impression/Recommendations Active Problems: Uncontrolled type 2 diabetes mellitus without complication, with long-term current use of insulin ([facility]) POA: Yes Assessment AND Plan: Arteriosclerotic heart disease (ASHD) POA: Yes Assessment AND Plan: Hypertension, essential POA: Yes Assessment AND Plan: Lower leg edema POA: Yes Assessment AND Plan: Anemia of chronic renal failure, stage 3 (moderate) ([facility]) POA: Yes Assessment AND Plan: Altered mental status POA: Yes Assessment AND Plan: UTI (urinary tract infection) POA: Unknown Assessment AND Plan: Chronic combined systolic and diastolic CHF (congestive heart failure) ([facility]) POA: Yes Assessment AND Plan: Hyperkalemia POA: Yes Assessment AND Plan: Hypoxia POA: Yes Assessment AND Plan: Hypoalbuminemia POA: Yes Assessment AND Plan: GARRET (acute kidney injury) ([facility]) POA: Yes Assessment AND Plan: CKD (chronic kidney disease) stage 3, GFR 30-59 ml/min ([facility]) POA: Yes Assessment AND Plan: High phosphate levels POA: Yes Assessment AND Plan: Hyponatremia POA: Yes Assessment AND Plan: Resolved Problems: * No resolved hospital problems. * Pt has ankylosing spondylitis with a probable soft tissue injury to his neck and shoulders with no Neurological deficit. Conservative treatment recommended. Would like to have his MRI Images sent for our review SIGNATURE: Anibal Sexton MD PATIENT NAME: Mauri Quinones DATE: March 26, 2019 TIME: 7:37 AM PAGER: [phone] Normal [facility] CONSULT PROGon 03-26-2019 CONSULT PROG HNO ID: [id number] Author: Kiera Gonzalez Service: Endocrinology Author Type: Physician Type: Consult Progress Note Filed: 03/26/2019 8:01 AM Note Text: ENDOCRINOLOGY CONSULT PROGRESS NOTE SERVICE DATE: 03/26/2019 SERVICE TIME: 7:50 AM Subjective INTERVAL HPI: Following for DM type 2. Adm with severe neck and B/L shoulder pain. Has GARRET. Notes and orders reviewed. Diet: DIET RENAL p.o intake good, following diet. Activity:Up AdLib in room only Review of Systems: PAIN ASSESSMENT: has neck and shoulder pain, better GENERAL: No weight loss, malaise or fevers. RESPIRATORY: Negative for cough, hemoptysis, wheezing, COPD, dyspnea or shortness of breath CARDIOVASCULAR: no CP, has edema GI: No nausea, vomiting, or diarrhea ENDOCRINE: Negative for cold or heat intolerance, polyuria or polydipsia. NEURO: no numbness/weakness extremities The remainder of the review of systems is negative. Current Facility-Administered Medications Medication Dose Route Frequency - doxazosin 2 mg tab(s) (CARDURA) 2 mg ORAL BID - carvedilol 25 mg tab(s) (COREG) 25 mg ORAL BID w MEALS - latanoprost 0.005 % 1 Drop (XALATAN) 1 Drop BOTH EYES AT BEDTIME - NaCl 0.9% 3-5 mL 3-5 mL INTRAVENOUS q 12 H - heparin 5,000 Units injection 5,000 Units SUBCUTANEOUS q 12 H - ondansetron 4 mg tab(s) (ZOFRAN) 4 mg ORAL q 6 H PRN Or - ondansetron (PF) 4 mg injection (ZOFRAN) 4 mg INTRAVENOUS q 6 H PRN - magnesium hydroxide 400 mg/5 mL 30 mL (MOM) 30 mL ORAL DAILY PRN - bisacodyl 10 mg suppository (DULCOLAX) 10 mg RECTAL DAILY PRN - acetaminophen 650 mg tab(s) (TYLENOL) 650 mg ORAL q 6 H PRN - cefTRIAXone 1 g in D5W 100 mL MB+ (ROCEPHIN) 1 g INTRAVENOUS q 24 H - dextrose 40 % 15 g 15 g ORAL PRN Or - glucagon 1 mg injection (GLUCAGEN) 1 mg INTRAMUSCULAR PRN Or - dextrose 50 % 12.5 g injection 12.5 g INTRAVENOUS PRN - NaCl 0.9% 3-5 mL 3-5 mL INTRAVENOUS q 12 H - aluminum-magnesium hydroxide-simethicone 200-200-20 mg/5 mL 30 mL (MAALOX,MYLANTA,MAG-AL PLUS) 30 mL ORAL DAILY PRN - docusate sodium 100 mg cap(s) (COLACE) 100 mg ORAL BID PRN - ipratropium-albuterol 3 mL nebulizer solution (DUONEB) 3 mL INHALATION q 4 H PRN - insulin lispro pen (rapid acting) (HumaLOG KWIKPEN) SUBCUTANEOUS w MEALS - calcium acetate 667 mg tab(s) (CALPHRON) 667 mg ORAL TID w MEALS - insulin lispro 8 Units pen (rapid acting) (HumaLOG KWIKPEN) 8 Units SUBCUTANEOUS w MEALS - insulin detemir U-100 15 Units injection (long acting) (LEVEMIR) 15 Units SUBCUTANEOUS DAILY (8 AM) - atorvastatin 40 mg tab(s) (LIPITOR) 40 mg ORAL AT BEDTIME - aspirin 81 mg chewable tab(s) 81 mg ORAL DAILY - polyethylene glycol 3350 17 g packet (MIRALAX, GLYCOLAX) 17 g ORAL DAILY - furosemide 40 mg tab(s) (LASIX) 40 mg ORAL DAILY - gabapentin 200 mg cap(s) (NEURONTIN) 200 mg ORAL DAILY - HYDROcodone 5 mg - acetaminophen 325 mg tablet (NORCO) 1 tablet ORAL q 4 H PRN - baclofen 5 mg tab(s) (LIORESAL) 5 mg ORAL TID PRN Objective PHYSICAL EXAM: GENERAL: awake, no distress SKIN: Skin color, texture, turgor normal. No rashes or lesions. OROPHARYNX: Lips, mucosa, and tongue normal. Teeth and gums normal. Oropharynx normal. LUNGS: Lungs clear to auscultation, Good diaphragmatic excursion CARDIAC: Normal S1 and S2; no rubs, murmurs, or gallops ABDOMEN: Abdomen soft, non-tender, BS normal, No masses or organomegaly EXTREMITIES: 1-2+ edema B/L LE, no clubbing or skin discoloration., No ulcers NEURO: Grossly normal cognition, motor function, and cranial nerves BP 157/80 Pulse 71 Temp (Src) 98.4 (Oral) Resp 16 Ht 5' 10 (1.78m) Wt 185 lb (83.9kg) SpO2 95% BMI 26.54 kg/(m2). O2 Therapy: Room Air DATA: Diagnostic tests reviewed for today's visit: Most recent labs and imaging results. Last 24 hr BS reviewed. Recent Labs 03/26/19 0622 03/25/19 1959 03/25/19 1543 03/25/19 1106 03/25/19 0629 03/25/19 0410 03/24/19 0416 03/23/19 1858 GLUC -- -- -- -- -- 217* -- 200* -- 287* GLUCOSEMETER 102* 102* 98 196* 216* -- < > -- < > -- < > = values in this interval not displayed. Assessment/Plan Type 2 diabetes mellitus, uncontrolled, without complication, with long-term current use of insulin ([facility]) POA: Yes Assessment AND Plan: 12-15 ears duration, on insulin for 5 years, Levemir 17 units qhs; off Metformin since 06/2018 due to CKD. A1c 10.4 (was 6.6 in 06/2018 before hip surgery) Checks BS q.o.d. at home, FBS 200-250's at home. BS 287 on adm, no Levemir given on 03/23 hs. Levemir resumed 10 units qam and Humalog 6 units tid started on 03/24 am. BS were high on 03/24; increased Levemir to 15 units qam and Humalog to 8 units tid with SSI on 03/25. BS better now. Watch on current Rx.Will need Rx for Humalog when goes home. Neck/sholuder pain, hx ankylosing spondylitis GARRET (acute kidney injury) (HCC) POA: Yes Assessment AND Plan: creat 2.33(2.47); per renal CKD (chronic kidney disease) stage 3, GFR 30-59 ml/min ([facility]) POA: Yes Assessment AND Plan: creat 1.54 in 07/2018 Arteriosclerotic heart disease (ASHD) POA: Yes Assessment AND Plan: hx Hypertension, essential POA: Yes Assessment AND Plan: per caprice UTI (urinary tract infection) POA: Unknown Assessment AND Plan: on A/B Chronic combined systolic and diastolic CHF (congestive heart failure) ([facility]) POA: Yes Assessment AND Plan: hx SIGNATURE: Kiera Gonzalez MD PATIENT NAME: Mauri Quionnes DATE: March 26, 2019 TIME: 8:01 AM PAGER: [phone] Normal [facility] PROGRESSon 03-26-2019 PROGRESS HNO ID: [id number] Author: Ra Alcala Service: Hospital Medicine Author Type: Physician Type: Progress Notes Filed: 03/27/2019 9:28 AM Note Text: DEPARTMENT OF HOSPITAL MEDICINE PROGRESS NOTE SERVICE DATE: 03/26/2019 SERVICE TIME: 2:54 PM Hospital Medicine/Primary Attending: Ra Alcala MD NIGHT AND WEEKEND COVERAGE: After 7pm please page [phone] SUBJECTIVE: F/u Neck pain. No CP SOB NVD, still has milky urine OBJECTIVE: PHYSICAL EXAM: BP 166/78 Pulse 72 Temp (Src) 98.6 (Oral) Resp 16 Ht 5' 10 (1.78m) Wt 184 lb 8.4 oz (83.7kg) SpO2 95% BMI 26.48 kg/(m2). O2 Therapy: Room Air General - AANDOx3, NAD, Calm CV - RRR S1 S2, No M/R/G RESP - CTA B/L No wheezes, ronchi, rales ABD - soft, NT, ND +BS ENT- no icterus Neuro- No dysarthria MEDICATIONS: Current Facility-Administered Medications Medication Dose Route Frequency - doxazosin 2 mg tab(s) (CARDURA) 2 mg ORAL BID - carvedilol 25 mg tab(s) (COREG) 25 mg ORAL BID w MEALS - latanoprost 0.005 % 1 Drop (XALATAN) 1 Drop BOTH EYES AT BEDTIME - NaCl 0.9% 3-5 mL 3-5 mL INTRAVENOUS q 12 H - heparin 5,000 Units injection 5,000 Units SUBCUTANEOUS q 12 H - ondansetron 4 mg tab(s) (ZOFRAN) 4 mg ORAL q 6 H PRN Or - ondansetron (PF) 4 mg injection (ZOFRAN) 4 mg INTRAVENOUS q 6 H PRN - magnesium hydroxide 400 mg/5 mL 30 mL (MOM) 30 mL ORAL DAILY PRN - bisacodyl 10 mg suppository (DULCOLAX) 10 mg RECTAL DAILY PRN - acetaminophen 650 mg tab(s) (TYLENOL) 650 mg ORAL q 6 H PRN - cefTRIAXone 1 g in D5W 100 mL MB+ (ROCEPHIN) 1 g INTRAVENOUS q 24 H - dextrose 40 % 15 g 15 g ORAL PRN Or - glucagon 1 mg injection (GLUCAGEN) 1 mg INTRAMUSCULAR PRN Or - dextrose 50 % 12.5 g injection 12.5 g INTRAVENOUS PRN - NaCl 0.9% 3-5 mL 3-5 mL INTRAVENOUS q 12 H - aluminum-magnesium hydroxide-simethicone 200-200-20 mg/5 mL 30 mL (MAALOX,MYLANTA,MAG-AL PLUS) 30 mL ORAL DAILY PRN - docusate sodium 100 mg cap(s) (COLACE) 100 mg ORAL BID PRN - ipratropium-albuterol 3 mL nebulizer solution (DUONEB) 3 mL INHALATION q 4 H PRN - insulin lispro pen (rapid acting) (HumaLOG KWIKPEN) SUBCUTANEOUS w MEALS - calcium acetate 667 mg tab(s) (CALPHRON) 667 mg ORAL TID w MEALS - insulin lispro 8 Units pen (rapid acting) (HumaLOG KWIKPEN) 8 Units SUBCUTANEOUS w MEALS - insulin detemir U-100 15 Units injection (long acting) (LEVEMIR) 15 Units SUBCUTANEOUS DAILY (8 AM) - atorvastatin 40 mg tab(s) (LIPITOR) 40 mg ORAL AT BEDTIME - aspirin 81 mg chewable tab(s) 81 mg ORAL DAILY - polyethylene glycol 3350 17 g packet (MIRALAX, GLYCOLAX) 17 g ORAL DAILY - furosemide 40 mg tab(s) (LASIX) 40 mg ORAL DAILY - gabapentin 200 mg cap(s) (NEURONTIN) 200 mg ORAL DAILY - HYDROcodone 5 mg - acetaminophen 325 mg tablet (NORCO) 1 tablet ORAL q 4 H PRN - baclofen 5 mg tab(s) (LIORESAL) 5 mg ORAL TID PRN - hydrALAZINE 25 mg tab(s) (APRESOLINE) 25 mg ORAL q 8 H DATA: Diagnostic tests reviewed for today's visit: CBC: No results for input(s): WBC, RBC, HB, HCT, PLT, MCV, MCH, MPV, RDW in the last 24 hours. Coags: No results for input(s): INR, APTT in the last 24 hours. Invalid input(s): PT BMP: No results for input(s): NA, K, CHLOR, CO2, BUN, CREAT, GLUC in the last 24 hours. CMP: No results for input(s): NA, K, CHLOR, CO2, BUN, CREAT, GLUC, TPROT, CA, MG, ALBUMIN, TBILI, ALKPHOS, ALT, AST, ANION in the last 24 hours. Cardiac Enzymes: No results for input(s): CK, MB, CKMB, TROPT in the last 24 hours. Liver Function, Amylase, Lipase: No results for input(s): TPROT, ALB, ALT, AST, ALKPHOS, TBILI, AMYLASE, LIPASE, LACTATE in the last 24 hours. MG/PHOS: No results for input(s): MG, P in the last 24 hours. Renal Panel: No results for input(s): ALBUMIN, CREAT, BUN, GLUC, CA, P, CHLOR, K, CO2, NA in the last 24 hours. Heme: No results for input(s): RETICP, ABSRETIC, LD, BOBY, FE, TIBC, TRANSFERSAT in the last 24 hours. Albumin/Creat Ratio (mg/g) Date Value 01/31/2018 3,068 (H) Assessment/Plan 1.) Neck Pain 2.) Pyuria 3.) GARRET on CKD 3 4.) DM2 PLAN: - Increase insulin doses - No real symptoms of UTI so if pyuria clears I will just DC Abx - Neck pain needs pain control and final recs post MRI from [facility] Prophylaxis: Heparin 5000 units Sub Q BID Disposition: Home with [facility] Plan of care discussed with: Patient SIGNATURE: Ra Alcala MD PATIENT NAME: Mauri Quinones DATE: March 26, 2019 TIME: 2:54 PM PAGER/CONTACT #: My Pager Normal [facility] PROGRESS HNO ID: [id number] Author: Daniel Mcfadden MD Service: Nephrology Author Type: Physician Type: Progress Notes Filed: 03/26/2019 1:22 PM Note Text: CONSULT PROGRESS NOTE NEPHROLOGY SERVICE Following for GARRET on CKD No nausea No vomiting. No SOB MEDICATIONS: Current Facility-Administered Medications Medication Dose Route Frequency - doxazosin 2 mg tab(s) (CARDURA) 2 mg ORAL BID - carvedilol 25 mg tab(s) (COREG) 25 mg ORAL BID w MEALS - latanoprost 0.005 % 1 Drop (XALATAN) 1 Drop BOTH EYES AT BEDTIME - NaCl 0.9% 3-5 mL 3-5 mL INTRAVENOUS q 12 H - heparin 5,000 Units injection 5,000 Units SUBCUTANEOUS q 12 H - ondansetron 4 mg tab(s) (ZOFRAN) 4 mg ORAL q 6 H PRN Or - ondansetron (PF) 4 mg injection (ZOFRAN) 4 mg INTRAVENOUS q 6 H PRN - magnesium hydroxide 400 mg/5 mL 30 mL (MOM) 30 mL ORAL DAILY PRN - bisacodyl 10 mg suppository (DULCOLAX) 10 mg RECTAL DAILY PRN - acetaminophen 650 mg tab(s) (TYLENOL) 650 mg ORAL q 6 H PRN - cefTRIAXone 1 g in D5W 100 mL MB+ (ROCEPHIN) 1 g INTRAVENOUS q 24 H - dextrose 40 % 15 g 15 g ORAL PRN Or - glucagon 1 mg injection (GLUCAGEN) 1 mg INTRAMUSCULAR PRN Or - dextrose 50 % 12.5 g injection 12.5 g INTRAVENOUS PRN - NaCl 0.9% 3-5 mL 3-5 mL INTRAVENOUS q 12 H - aluminum-magnesium hydroxide-simethicone 200-200-20 mg/5 mL 30 mL (MAALOX,MYLANTA,MAG-AL PLUS) 30 mL ORAL DAILY PRN - docusate sodium 100 mg cap(s) (COLACE) 100 mg ORAL BID PRN - ipratropium-albuterol 3 mL nebulizer solution (DUONEB) 3 mL INHALATION q 4 H PRN - insulin lispro pen (rapid acting) (HumaLOG KWIKPEN) SUBCUTANEOUS w MEALS - calcium acetate 667 mg tab(s) (CALPHRON) 667 mg ORAL TID w MEALS - insulin lispro 8 Units pen (rapid acting) (HumaLOG KWIKPEN) 8 Units SUBCUTANEOUS w MEALS - insulin detemir U-100 15 Units injection (long acting) (LEVEMIR) 15 Units SUBCUTANEOUS DAILY (8 AM) - atorvastatin 40 mg tab(s) (LIPITOR) 40 mg ORAL AT BEDTIME - aspirin 81 mg chewable tab(s) 81 mg ORAL DAILY - polyethylene glycol 3350 17 g packet (MIRALAX, GLYCOLAX) 17 g ORAL DAILY - furosemide 40 mg tab(s) (LASIX) 40 mg ORAL DAILY - gabapentin 200 mg cap(s) (NEURONTIN) 200 mg ORAL DAILY - HYDROcodone 5 mg - acetaminophen 325 mg tablet (NORCO) 1 tablet ORAL q 4 H PRN - baclofen 5 mg tab(s) (LIORESAL) 5 mg ORAL TID PRN - hydrALAZINE 25 mg tab(s) (APRESOLINE) 25 mg ORAL q 8 H Objective PHYSICAL EXAM: BP 166/78 Pulse 72 Temp 37 ?C (98.6 ?F) (Oral) Resp 16 Ht 177.8 cm (5' 10) Wt 83.7 kg (184 lb 8.4 oz) SpO2 95% BMI 26.48 kg/m? Intake/Output Summary (Last 24 hours) at 03/26/2019 1321 Last data filed at 03/26/2019 0837 Gross per 24 hour Intake 360 ml Output ? Net 360 ml Constitutional: No acute distress, Responsive, Normal habitus and Well-nourished Neck: Trachea midline No jugular venous distension Cardiovascular: Regular rate and rhythm, normal S1 and S2, no murmurs, rubs, or gallops +1 edema of LE Respiratory: Normal respiratory effort. Lungs clear bilaterally. Abdomen: Soft, non-tender, non-distended. Normal bowel sounds. No hepatosplenomegaly. Psychiatric: Alert and oriented x self, place, time, and setting Normal mood/affect DATA: Diagnostic tests reviewed for today's visit: Most recent labs Recent Labs 03/25/19 0410 03/24/19 1019 03/24/19 0416 03/23/19 1858 NA 135* -- 131* 132* K 5.1 -- 5.1 4.9 CHLOR 104 -- 103 102 CO2 23 -- 21 23 BUN 83* -- 83* 81* CREAT 2.33* -- 2.47* 2.46* GLUC 217* -- 200* 287* ANION 13 -- 12 12 CA 8.7 -- 8.7 8.4* P -- 6.0* 6.5* -- MG -- 2.0 2.1 -- Recent Labs 03/25/19 0410 03/24/19 0416 03/23/19 1858 WBC 8.79 7.18 6.40 HB 8.9* 9.1* 10.2* HCT 28.0* 29.2* 32.2* PLT 393* 348 320 Recent Labs 03/24/19 1712 03/23/19 2207 07/25/18 1515 COLOR -- YELLOW Yellow CLARITY -- -- Clear UGLUC -- 500* Negative UBILI -- NEGATIVE Negative UKET -- NEGATIVE Negative SPGR -- 1.019 1.010 UHB -- -- Negative UPH -- 5.5 6.0 UPROT 473.4* 100* 100* NITRITES -- NEGATIVE Negative LEUKEST -- LARGE* Negative UWBC -- >900.0* 0-5 URBC -- 57.3* 0-3 Assessment/Plan 1- GARRET on CKD. Baseline Cr seems around 2.3-2.4 mg/dL. 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 Pro/Cr is 6 mg/mg which is nephrotic range proteinuria No BMP today. Will check BMP in am Pt cannot be on ACEI/ARB due to h/o hyperkalemia Check renal function ? 2- HTN: BP is above the target.BP target < 130/80. Avoid ACEI/ARB due to hyperkalemia On Doxazosin, lasix and coreg. Will add hydralazine 25 mg TID ? 3- Hyperkalemia: Pt had hyperkalemia 2 days ago when he visited [place] ED . Pt was given Kayexalate. K is wnl on 03/25 lab Avoid ACEI/ARB. Renal diet ? 4- Hyperphosphatemia: continue Phoslo 667 mg one with each meal ? 5- UTI: On ceftriaxone 1g IV daily Renal team will continue to follow Please call if any question at [phone] [facility] PROGRESS HNO ID: [id number] Author: Lara Feliciano Service: Pain Management Author Type: Physician Type: Progress Notes Filed: 03/26/2019 9:29 AM Note Text: Mauri Quinones [id number] PAIN MANAGEMENT TEAM PAIN DIAGNOSIS: Neck and bilateral shoulder pain, Hx lumbar ankylosing spondylitis, OA. DM neuropathy Pain Description: Patient seen earlier, feels better. Left neck and bilateral shoulder pain INTERVAL HPI: 03/26 neurosurgery evaluation recommendation for conservative treatment. Patient with history ankylosing spondylitis with probable soft tissue injury to his neck and shoulders. No neurologic deficit. MRI images to be reviewed SUBJECTIVE: HPI: This is a 63 year old male with hx poorly controlled DM2 (HbA1C 10.3), CKD 3/4, CAD/CABG 2017, chronic pain 2/2 OA, ankylosing spondylitis, recent [place] admission neck pain (imaging reported no acute findings), UTI presented 03/24 with worsneing neck pain. No focal neurologic deficits; no recent fall. In ER, patient had: Chest x-ray: Negative, CT brain: Negative for anything acute. 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 He lives with his and dtr; ambulates with a walker or cane. He does not use tobacco, ETOH or illicit meds. 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 03/22/2019 2 03/22/2019 Hydrocodone-Acetamin 5-325 MG 30 4 Ma Ter [id number] [place] (9079) 0 37.50 [facility] [place] 12/04/2018 1 02/04/2018 Gabapentin 300 MG Capsule 180 90 Ma Bar [id number] [place] (8869) 3 [facility] [place] 09/12/2018 1 02/04/2018 Gabapentin 300 MG Capsule 180 90 Ma Bar [id number] [facility] (1327) 2 [facility] [place] 09/02/2018 1 08/29/2018 Hydrocodone-Acetamin 5-325 MG 42 7 Mi Lyk [id number] [facility] (1327) 0 30.00 [facility] [place] 08/17/2018 1 08/08/2018 Hydrocodone-Acetamin 5-325 MG 42 7 Ja Gli [id number] [facility] (1327) 0 30.00 [facility] [place] 07/27/2018 1 07/23/2018 Hydrocodone-Acetamin 5-325 MG 42 7 Je Dul [id number] [facility] (1327) 0 30.00 [facility] [place] MEDICATIONS Current Facility-Administered Medications Medication Dose Route Frequency Provider Last Rate Last Dose - atorvastatin 40 mg tab(s) (LIPITOR) 40 mg ORAL AT BEDTIME Mariela Schaef 40 mg at 03/25/192134 - aspirin 81 mg chewable tab(s) 81 mg ORAL DAILY Mariela Schaef 81 mg at 03/26/19 0808 - polyethylene glycol 3350 17 g packet (MIRALAX, GLYCOLAX) 17 g ORAL DAILY Mariela Schaef 17 g at 03/25/19 1144 - furosemide 40 mg tab(s) (LASIX) 40 mg ORAL DAILY Daneil Mcfadden MD 40 mg at 03/26/19 0808 - gabapentin 200 mg cap(s) (NEURONTIN) 200 mg ORAL DAILY Lara K Scantling 200 mg at 03/26/19 0808 - HYDROcodone 5 mg - acetaminophen 325 mg tablet (NORCO) 1 tablet ORAL q 4 H PRN Lara K Scantling 1 tablet at 03/25/192130 - baclofen 5 mg tab(s) (LIORESAL) 5 mg ORAL TID PRN Lara K Scantling - doxazosin 2 mg tab(s) (CARDURA) 2 mg ORAL BID Dante Myers 2 mg at 03/26/19 0808 - carvedilol 25 mg tab(s) (COREG) 25 mg ORAL BID w MEALS Dante Myers 25 mg at 03/26/19 0808 - latanoprost 0.005 % 1 Drop (XALATAN) 1 Drop BOTH EYES AT BEDTIME Dante Myers 1 Drop at 03/25/19 2138 - NaCl 0.9% 3-5 mL 3-5 mL INTRAVENOUS q 12 H Dante Myers 3 mL at 03/26/19 0832 - heparin 5,000 Units injection 5,000 Units SUBCUTANEOUS q 12 H Dante Myers 5,000 Units at 03/25/19 2132 - ondansetron 4 mg tab(s) (ZOFRAN) 4 mg ORAL q 6 H PRN Dante Myers Or - ondansetron (PF) 4 mg injection (ZOFRAN) 4 mg INTRAVENOUS q 6 H PRN Dante Myers - magnesium hydroxide 400 mg/5 mL 30 mL (MOM) 30 mL ORAL DAILY PRN Dante Myers - bisacodyl 10 mg suppository (DULCOLAX) 10 mg RECTAL DAILY PRN Dante Myers - acetaminophen 650 mg tab(s) (TYLENOL) 650 mg ORAL q 6 H PRN Dante Myers 650 mg at 03/25/19 0552 - cefTRIAXone 1 g in D5W 100 mL MB+ (ROCEPHIN) 1 g INTRAVENOUS q 24 H Dante Myers 200 mL/hr at 03/26/19 0808 1 g at 03/26/19 0808 - dextrose 40 % 15 g 15 g ORAL PRN Dante Sherwood - glucagon 1 mg injection (GLUCAGEN) 1 mg INTRAMUSCULAR PRN Dante Myers Or - dextrose 50 % 12.5 g injection 12.5 g INTRAVENOUS PRN Dante Myers - NaCl 0.9% 3-5 mL 3-5 mL INTRAVENOUS q 12 H Vandana (Dietary Internship) Jatin 3 mL at 03/26/19 0808 - aluminum-magnesium hydroxide-simethicone 200-200-20 mg/5 mL 30 mL (MAALOX,MYLANTA,MAG-AL PLUS) 30 mL ORAL DAILY PRN Vandana (Dietary Internship) Jatin - docusate sodium 100 mg cap(s) (COLACE) 100 mg ORAL BID PRN Vandana (Dietary Internship) Jatin - ipratropium-albuterol 3 mL nebulizer solution (DUONEB) 3 mL INHALATION q 4 H PRN Vandana (Dietary Internship) Jatin - insulin lispro pen (rapid acting) (HumaLOG KWIKPEN) SUBCUTANEOUS w MEALS Kiera Midha 1 Units at 03/25/19 1139 - calcium acetate 667 mg tab(s) (CALPHRON) 667 mg ORAL TID w MEALS [place] (Res) MD Nahomi 667 mg at 03/26/19 0808 - insulin lispro 8 Units pen (rapid acting) (HumaLOG KWIKPEN) 8 Units SUBCUTANEOUS w MEALS Kiera Midha 8 Units at 03/26/19 0808 - insulin detemir U-100 15 Units injection (long acting) (LEVEMIR) 15 Units SUBCUTANEOUS DAILY (8 AM) [facility] 15 Units at 03/26/19 0809 Medications Prior to Admission: atorvastatin (LIPITOR) 40 mg tablet Take 40 mg by mouth once daily. Disp: Rfl: cephALEXin (KEFLEX) 500 mg capsule Take 500 mg by mouth twice daily. Disp: Rfl: HYDROcodone-acetaminophen (NORCO) 5-325 mg per tablet Take 1 tablet by mouth every 6 hours as needed. Disp: Rfl: sodium polystyrene sulfonate, with sorbitol, (SPS) 15-20 gram/60 mL susp suspension Take 15 g by mouth once daily. X 5 days (started 03/22/19) Disp: Rfl: gabapentin (NEURONTIN) 600 mg tablet Take 1 tablet by mouth once daily for 30 days. (Patient taking differently: Take 300 mg by mouth once daily. ) Disp: 30 tablet Rfl: 0 insulin detemir U-100 (LEVEMIR FLEXTOUCH U-100 INSULN) 100 unit/mL (3 mL) inpn injection Inject 17 Units subcutaneously daily at bedtime. Disp: Rfl: doxazosin (CARDURA) 4 mg tablet Take 0.5 tablets by mouth twice daily. Disp: Rfl: 11 furosemide (LASIX) 40 mg tablet Take 1 tablet by mouth once daily. Disp: Rfl: Taking carvedilol (COREG) 25 mg tablet Take 25 mg by mouth twice daily with meals. Disp: Rfl: Taking MULTIVITAMIN/IRON/FOLIC ACID (DAILY MULTI ORAL) Take 2 Each by mouth once daily. Disp: Rfl: Taking aspirin, enteric coated (ASPIR-81) 81 mg EC tablet Take 1 tablet by mouth once daily. Disp: 90 tablet Rfl: 3 Not Taking latanoprost (XALATAN) 0.005 % ophthalmic solution Use 1 Drop in both eyes daily at bedtime. into affected eye(s). Disp: Rfl: 0 Taking PAST MEDICAL HISTORY PAST MEDICAL HISTORY Diagnosis Date - GARRET (acute kidney injury) ([facility]) 03/24/2019 - Ankylosing spondylitis ([facility]) - CAD (coronary artery disease) - Cellulitis - Chronic combined systolic and diastolic CHF (congestive heart failure) ([facility]) 03/24/2019 - CKD (chronic kidney disease) stage 3, GFR 30-59 ml/min ([facility]) 03/24/2019 - Constipation - Diabetes ([facility]) - Gout - High phosphate levels 03/24/2019 - Hx of fracture multiple bones - Hyperkalemia 03/24/2019 - Hypoalbuminemia 03/24/2019 - Hyponatremia 03/24/2019 - Hypoxia 03/24/2019 - NSTEMI (non-ST elevated myocardial infarction) ([facility]) 03/12/2017 [facility] admit - Osteoarthritis PAST SURGICAL HISTORY PAST SURGICAL HISTORY Procedure Laterality Date - CORONARY ARTERY BYPASS GRAFT 04/12/2017 x 3 - HIP SURGERY HX Right pin - KNEE ARTHROSCOPY Left x2 - KNEE SURGERY HX Right TKR, right, arthoscopy x3 - PAST SURGICAL HISTORY OF 09/07/2017 08/15/17 fx radius in 2 places; plate and screws.Plate and screws 09/07/17 [facility] - TOE SURGERY HX Right - TOTAL HIP REPLACEMENT Right ALLERGIES Allergen Reactions - Lyrica [Pregabalin] Swelling FAMILY HISTORY Problem Relation Age of Onset - Arthritis Mother - Coronary Artery Disease Mother - Diabetes Mother - Heart Mother - Hypertension Mother - Alcohol/Drug Father - Arthritis Father - Heart Father - Hypertension Father Social History Tobacco Use - Smoking status: Never Smoker - Smokeless tobacco: Former User Types: Chew Substance Use Topics - Alcohol use: No Comment: seldom - Drug use: No Social History Social History Narrative Not on file REVIEW OF SYSTEMS: all of the following reviewed and negative except as noted below: GENERAL: no fever, chills, sweats, weight loss, +fatigue, generalized weakness HEENT: no headache, vision changes, eye discomfort, hearing change, ear discomfort, sinus pain, nasal discharge or congestion, oral lesions, soreness, dental problem NECK: See HPI CHEST: no shortness of breath, dyspnea on exertion, wheezing, cough, sputum production or chest pain HEART: no chest pain, palpitations, syncope ABDOMEN: no nausea, vomiting, constipation, diarrhea, abdominal pain : no dysuria, +urgency, frequency,no history of stones, incontinence NEURO: no confusion or alteration in consciousness, slurred speech, seizure, focal weakness EXTREMITIES: no new pain, edema, change in ROM HEME: no new adenopathy, bruises, petechiae PSYCH: no depression, anxiety, agitation PAIN PSYCHIATRIC EXAM: GENERAL: alert, oriented to person, place, time JUDGMENT AND INSIGHT: intact APPEARANCE: neatly groomed DEMEANOR: coooperative, not hostile, mistrustful, preoccupied, or demanding ACTIVITY: normal, not hyperactive or hypoactive, no tremors, tics EYE CONTACT: normal SPEECH: normal, rate, volume, articulation, coherence, spontaneity MOOD: normal, without overt sadness, grief, anxiety, appropriate to situation IDEATION: normal and without suicidal or homicidal ideation MEMORY: intact OBJECTIVE PHYSICAL EXAMINATION: see below for new or abnormal findings BP 194/84 Pulse 78 Temp (Src) 98.6 (Oral) Resp 16 Ht 5' 10 (1.78m) Wt 184 lb 8.4 oz (83.7kg) SpO2 95% BMI 26.48 kg/(m2). O2 Therapy: Room Air GENERAL: well nourished and developed; no acute distress; alert and oriented x 3; intact judgement and insight HEENT: no evidence of trauma; cranial nerves intact; eyes clear EOMI; no hearing deficits apparent; nasal passages unremarkable; throat and mucous membranes clear NECK: supple without lymphadenopathy; no JVD; no thyromegaly CHEST: clear bilaterally to auscultation; normal chest movement; no rales or rhonchi HEART: regular rate and rhythm, normal S1 and S2, no murmurs, clicks, rubs, or gallops ABDOMEN: soft; nondistended; bowel sounds present; no hepatomegaly; no splenomegaly; no tenderness EXTREMITIES: no evidence of clubbing; no cyanosis; no deformity; no joint effusion; no edema NEURO: cranial nerves intact; no focal deficits; no confusion; no tremor; sensorium normal; b/l hand grasp 5/5 SKIN: no rash; no skin breakdown; no decubitus lesions HEME: no bruising; no adenopathy PSYCH: no evidence of depression; no anxiety; no agitation; no apparent hallucinations DATA: Diagnostic tests reviewed: Most recent labs and imaging results. CBC: No results for input(s): WBC, RBC, HB, HCT, PLT, MCV, MCH, MPV, RDW in the last 24 hours. CMP: No results for input(s): NA, K, CHLOR, CO2, BUN, CREAT, GLUC, TPROT, CA, MG, ALBUMIN, TBILI, ALKPHOS, ALT, AST, ANION in the last 24 hours. Heme: No results for input(s): RETICP, ABSRETIC, LD, BOBY, FE, TIBC, TRANSFERSAT in the last 24 hours. 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 Arteriosclerotic Heart Disease ([facility]) Glaucoma Suspect of Left Eye Hypertension, Essential Lower Leg Edema Chronic Left Hip Pain Anemia of Chronic Renal Failure, Stage 3 (Moderate) ([facility]) Acute On Chronic Diastolic Congestive Heart Failure ([facility]) Recurrent Right Pleural Effusion Pvd (Peripheral Vascular Disease) ([facility]) Altered Mental Status Uti (Urinary Tract Infection) Chronic Combined Systolic and Diastolic Chf (Congestive Heart Failure) ([facility]) Hyperkalemia Hypoxia Hypoalbuminemia Garret (Acute Kidney Injury) ([facility]) Ckd (Chronic Kidney Disease) Stage 3, Gfr 30-59 Ml/Min ([facility]) High Phosphate Levels Hyponatremia Diet Orders Placed This Encounter DIET RENAL LAST BOWEL MOVEMENT Prior to Admission Opiate Status Episodic Outpatient Pain Management: No. Rx at D/C: No Rx on chart: No OARRS: see above- most recent 03/22 [place] 5/325 # 30 (4ds); 12/04 Neurontin 300mg # 180 (90ds) Pain Regimen/Notes (Opiate use last 24 hrs): APAP 650mg po q6h prn x 2 Neurontin 200 mg ?1 Flexeril 5mg tid prn xone [place] 5/325?1 PLAN: Pt admitted with worsening neck and bilateral shoulder pain; defer diagnostic w/u to primary team. Need to review recent MRI from [place]. Appreciate neurosurgery evaluation. No neurologic deficits. Probable soft tissue injury to his neck and shoulders Pt with hx chronic multifactorial pain 2/2 OA, anklylosing spondylitis and DM neuropathy Neurontin 200mg po qd (reduced dose with CKD 3/4; baseline creatinine 2.3?2.4 APAP 650mg po q6h prn Continue [place] 5/325 one po q4h prn mod/severe pain Baclofen 5mg po tid prn Disposition pending Lara Feliciano MD [facility] THERAPY NTon 03-26-2019 THERAPY NT HNO ID: [id number] Author: Melvin (PtAnette Duval Service: Physical Therapy Author Type: Physical Therapist Type: Therapy (PT/OT/Speech/Resp) Filed: 03/26/2019 11:12 AM Note Text: Physical Therapy Treatment SERVICE DATE: 03/26/2019 SERVICE TIME: 1038 to 1101 ROOM: [id number] Recommended Discharge Disposition: Home Recommended Discharge Disposition Comments: Outpatient PT if symptoms persist. Focus on modalities. Anticipated Discharge Needs: Physical Assist at Home Physical Assist at Home for: Laundry;Cleaning;Transport ation;Safety PT Recommendations to Nursing: Ambulate with device;To bathroom;In halls;With assist of 1 person Device: Wheeled Walker PT 6 Clicks Score: 21 ASSESSMENT : Patient reports pain improving. Still needing min assist to get up from supine. Recommend home at d.c. Patient Disposition at Start of Session: (on cart returning from test) Patient Disposition at End of Session: OOB in Chair;Call Emmanuel in Reach Tolerated Full Session Physical Therapy Problem List: Pain;Functional Mobility Impairment;Decreased Range Of Motion Patient /Caregiver Goals: Walk;Go Home Goals for Plan of Care: Able to perform HEP with: Independent(gentle shoulder rolls and retractions, head supported rotati) Transfer supine to/from sit with: Independent Ambulate with: Independent Distance: 150 Device: Wheeled Walker Progress Toward Goals: Progressing as expected Rehab Potential: Good PLAN: Treatment Frequency (times per week): 3(1-3) Current admission Treatment Interventions: Education;Joint Mobility;Functional Mobility Training(minimal / gentle ROM and shoulder exs) Plan of Care developed with: Patient TREATMENT INTERVENTIONS: Interventions Provided: Therapeutic Exercise (70834);Therapeutic Activity (56624);Gait Training (79942) Therapeutic Exercise (70860) Treatment Minutes: 8 1 unit Skilled Intervention(s): Instruction in therapeutic exercise gentle shoulder rolls fwd and back, and scapular retractions (with tactile cues for moving scapula), head supported gentle rotation and side bend through pain free ROM Verbal and tactile cuing provided . Therapeutic Activity (11786) Treatment Minutes: 7 0 units Skilled Intervention(s): Education with donning cervical collar. Educated on sup to sit transfer. Gait Training (77791) Treatment Minutes: 8 1 unit Skilled Intervention(s): Instruction in sit to stand technique with proper hand placement and body positioning at edge of bed/chair, Instruction in stand to sit technique with LE's touching chair/bed and reaching back for surface and Instruction in use of equipment, cues for sequence and pattern Increased ambulation distance. Total Timed Code Treatment Minutes: 23 Total Treatment Time (minutes): 23 SUBJECTIVE: Current Hospital Course: Chart reviewed and no significant medical updates relevant to therapy were noted Reason for Physical Therapy Consult : eval Relevant Past Medical History: CAD, ankylosing spondylitis, gout Patient Report: Pt willing to participate. Pt noting improved overall pain. Home Environment Patient Lives With: Family( and dtr) Assistance Available: 24 Hour Entry To Home: Stairs;With Rail Number Of Stairs Into Home: 1 Number Of Stairs To Bed/Bath: 0 Laundry: basement- pt can do it Equipment Owned: Wheeled Walker;Cane Prior Functional Level: Within Functional Limits Prior Functional Level Comments: independent, drives, OBJECTIVE: CURRENT FUNCTIONAL STATUS: Current Functional Mobility Assist Level Additional Information Rolling Independent Supine to Sit Minimal Assistance Sit to Supine Minimal Assistance Scooting Independent Sit to Stand Supervision Stand to Sit Supervision Bed to Chair Toilet/Commode Gait Stand By Assistance Gait Device: Wheeled Walker Gait Distance (feet): 175 Stairs Curb Step Car Transfer General Gait Deviations: Antalgic gait pattern(R stance) -M: 7: Walk 25 feet or more Please see discipline specific clinical documentation flowsheet for complete details for this therapy evaluation/treatment. SIGNATURE: Melvin Duval PT PATIENT NAME: Mauri Quinones DATE: March 26, 2019 TIME: 11:06 AM Normal [facility] CASE MANAGEMon 03-25-2019 CASE MANAGEM HNO ID: [id number] Author: Dagmar (Bismark) BISMARK Chicas Service: ? Author Type: Registered Nurse Type: Care Mgt Progress Note Filed: 03/25/2019 11:17 AM Note Text: CARE MANAGEMENT PROGRESS NOTE SERVICE DATE: 03/25/2019 SERVICE TIME: 11:16 AM LOS: 1 day Needs Prior to Discharge: None Spoke with patient Reviewed evals both rec home at [facility]. Pt in cervical collar. Noted dm ed restarted on insulin and pt denies need for skilled nsg/home care at [facility] --has been on insulin in past. Dc plan return home. SIGNATURE: Dagmar Chicas RN PATIENT NAME: Mauri Quinones DATE: March 25, 2019 TIME: 11:15 AM PAGER/CONTACT #: [phone] [facility] CONSULTon 03-25-2019 CONSULT HNO ID: [id number] Author: Lara Feliciano Service: Pain Management Author Type: Physician Type: Consults Filed: 03/25/2019 5:06 PM Note Text: Mauri Quinones [id number] PAIN MANAGEMENT TEAM PAIN DIAGNOSIS: Neck and bilateral shoulder pain, Hx lumbar ankylosing spondylitis, OA. DM neuropathy Pain Description: constant ache/throbbing pain neck; also c/o R>L shoulder pain INTERVAL HPI: SUBJECTIVE: HPI: This is a 63 year old male with hx poorly controlled DM2 (HbA1C 10.3), CKD 3/4, CAD/CABG 2016, chronic pain 2/2 OA, ankylosing spondylitis, recent [place] admission neck pain (imaging reported no acute findings), UTI presented 03/24 with worsneing neck pain. No focal neurologic deficits; no recent fall. In ER, patient had: Chest x-ray: Negative, CT brain: Negative for anything acute. 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 He lives with his and dtr; ambulates with a walker or cane. He does not use tobacco, ETOH or illicit meds. Review of [place] Automated RX Reporting System shows Summary Total Prescriptions: 21 Total Prescribers: 9 Total Pharmacies: 3 Narcotics* ?(excluding buprenorphine) Current Qty: 0 Current MME/day: 37.50 30 Day Avg MME/day: 3.75 Sedatives* Current Qty: 0 Current LME/day: 0.00 30 Day Avg LME/day: 0.00 Buprenorphine* Current Qty: 0 Current mg/day: 0.00 30 Day Avg mg/day: 0.00 Rx Data Total Prescriptions: 21 ?? 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 03/22/2019 2 03/22/2019 Hydrocodone-Acetamin 5-325 MG 30 4 Ma Ter [id number] [place] (5563) 0 37.50 [facility] [place] 12/04/2018 1 02/04/2018 Gabapentin 300 MG Capsule 180 90 Ma Bar [id number] [place] (2499) 3 [facility] [place] 09/12/2018 1 02/04/2018 Gabapentin 300 MG Capsule 180 90 Ma Bar [id number] [place] (1327) 2 [facility] [place] 09/02/2018 1 08/29/2018 Hydrocodone-Acetamin 5-325 MG 42 7 Mi Lyk [id number] [facility] (1327) 0 30.00 [facility] [place] 08/17/2018 1 08/08/2018 Hydrocodone-Acetamin 5-325 MG 42 7 Ja Gli [id number] [facility] (1327) 0 30.00 [facility] [place] 07/27/2018 1 07/23/2018 Hydrocodone-Acetamin 5-325 MG 42 7 Je Dul [id number] [facility] (1327) 0 30.00 [facility] [place] MEDICATIONS Current Facility-Administered Medications Medication Dose Route Frequency Provider Last Rate Last Dose - atorvastatin 40 mg tab(s) (LIPITOR) 40 mg ORAL AT BEDTIME Mariela Schaef - aspirin 81 mg chewable tab(s) 81 mg ORAL DAILY Mariela Schaef 81 mg at 03/25/19 0911 - polyethylene glycol 3350 17 g packet (MIRALAX, GLYCOLAX) 17 g ORAL DAILY Mariela Schaef 17 g at 03/25/19 1144 - doxazosin 2 mg tab(s) (CARDURA) 2 mg ORAL BID Dante Myers 2 mg at 03/25/19 0900 - carvedilol 25 mg tab(s) (COREG) 25 mg ORAL BID w MEALS Dante Myers 25 mg at 03/25/19 0802 - latanoprost 0.005 % 1 Drop (XALATAN) 1 Drop BOTH EYES AT BEDTIME Dante Myers 1 Drop at 03/24/19 2019 - NaCl 0.9% 3-5 mL 3-5 mL INTRAVENOUS q 12 H Dante Myers 3 mL at 03/24/19 0300 - heparin 5,000 Units injection 5,000 Units SUBCUTANEOUS q 12 H Dante Myers 5,000 Units at 03/25/19 0900 - ondansetron 4 mg tab(s) (ZOFRAN) 4 mg ORAL q 6 H PRN Dante Myers Or - ondansetron (PF) 4 mg injection (ZOFRAN) 4 mg INTRAVENOUS q 6 H PRN Dante Myers - magnesium hydroxide 400 mg/5 mL 30 mL (MOM) 30 mL ORAL DAILY PRN Dante Myers - bisacodyl 10 mg suppository (DULCOLAX) 10 mg RECTAL DAILY PRN Dante Myers - acetaminophen 650 mg tab(s) (TYLENOL) 650 mg ORAL q 6 H PRN Dante Myers 650 mg at 03/25/19 0552 - morphine 1-2 mg injection 1-2 mg INTRAVENOUS q 4 H PRN Dante Myers 2 mg at 03/25/19 0229 - cefTRIAXone 1 g in D5W 100 mL MB+ (ROCEPHIN) 1 g INTRAVENOUS q 24 H Dante Myers 200 mL/hr at 03/25/19 0900 1 g at 03/25/19 0900 - NaCl 0.9% iv infusion 75 mL/hr INTRAVENOUS CONTINUOUS Dante Myers 75 mL/hr at 03/25/19 0753 75 mL/hr at 03/25/19 0753 - dextrose 40 % 15 g 15 g ORAL PRN Dante Myers Or - glucagon 1 mg injection (GLUCAGEN) 1 mg INTRAMUSCULAR PRN Dante Myers Or - dextrose 50 % 12.5 g injection 12.5 g INTRAVENOUS PRN Dante Myers - NaCl 0.9% 3-5 mL 3-5 mL INTRAVENOUS q 12 H Vandana (Dietary Internship) Jatin - aluminum-magnesium hydroxide-simethicone 200-200-20 mg/5 mL 30 mL (MAALOX,MYLANTA,MAG-AL PLUS) 30 mL ORAL DAILY PRN Vandana (Dietary Internship) Jatin - docusate sodium 100 mg cap(s) (COLACE) 100 mg ORAL BID PRN Vandana (Dietary Internship) Jatin - ipratropium-albuterol 3 mL nebulizer solution (DUONEB) 3 mL INHALATION q 4 H PRN Vandana (Dietary Internship) Jatin - insulin lispro pen (rapid acting) (HumaLOG KWIKPEN) SUBCUTANEOUS w MEALS Kiera Midha 1 Units at 03/25/19 1139 - calcium acetate 667 mg tab(s) (CALPHRON) 667 mg ORAL TID w MEALS Donavan (Res) MD Nahomi 667 mg at 03/25/19 1139 - insulin lispro 8 Units pen (rapid acting) (HumaLOG KWIKPEN) 8 Units SUBCUTANEOUS w MEALS Kiera Midha 8 Units at 03/25/19 1139 - insulin detemir U-100 15 Units injection (long acting) (LEVEMIR) 15 Units SUBCUTANEOUS DAILY (8 AM) Kiera Midha 15 Units at 03/25/19 0806 Medications Prior to Admission: atorvastatin (LIPITOR) 40 mg tablet Take 40 mg by mouth once daily. Disp: Rfl: cephALEXin (KEFLEX) 500 mg capsule Take 500 mg by mouth twice daily. Disp: Rfl: HYDROcodone-acetaminophen (NORCO) 5-325 mg per tablet Take 1 tablet by mouth every 6 hours as needed. Disp: Rfl: sodium polystyrene sulfonate, with sorbitol, (SPS) 15-20 gram/60 mL susp suspension Take 15 g by mouth once daily. X 5 days (started 03/22/19) Disp: Rfl: gabapentin (NEURONTIN) 600 mg tablet Take 1 tablet by mouth once daily for 30 days. (Patient taking differently: Take 300 mg by mouth once daily. ) Disp: 30 tablet Rfl: 0 insulin detemir U-100 (LEVEMIR FLEXTOUCH U-100 INSULN) 100 unit/mL (3 mL) inpn injection Inject 17 Units subcutaneously daily at bedtime. Disp: Rfl: doxazosin (CARDURA) 4 mg tablet Take 0.5 tablets by mouth twice daily. Disp: Rfl: 11 furosemide (LASIX) 40 mg tablet Take 1 tablet by mouth once daily. Disp: Rfl: Taking carvedilol (COREG) 25 mg tablet Take 25 mg by mouth twice daily with meals. Disp: Rfl: Taking MULTIVITAMIN/IRON/FOLIC ACID (DAILY MULTI ORAL) Take 2 Each by mouth once daily. Disp: Rfl: Taking aspirin, enteric coated (ASPIR-81) 81 mg EC tablet Take 1 tablet by mouth once daily. Disp: 90 tablet Rfl: 3 Not Taking latanoprost (XALATAN) 0.005 % ophthalmic solution Use 1 Drop in both eyes daily at bedtime. into affected eye(s). Disp: Rfl: 0 Taking PAST MEDICAL HISTORY PAST MEDICAL HISTORY Diagnosis Date - GARRET (acute kidney injury) ([facility]) 03/24/2019 - Ankylosing spondylitis ([facility]) - CAD (coronary artery disease) - Cellulitis - Chronic combined systolic and diastolic CHF (congestive heart failure) ([facility]) 03/24/2019 - CKD (chronic kidney disease) stage 3, GFR 30-59 ml/min ([facility]) 03/24/2019 - Constipation - Diabetes ([facility]) - Gout - High phosphate levels 03/24/2019 - Hx of fracture multiple bones - Hyperkalemia 03/24/2019 - Hypoalbuminemia 03/24/2019 - Hyponatremia 03/24/2019 - Hypoxia 03/24/2019 - NSTEMI (non-ST elevated myocardial infarction) ([facility]) 03/12/2017 [facility] admit - Osteoarthritis PAST SURGICAL HISTORY PAST SURGICAL HISTORY Procedure Laterality Date - CORONARY ARTERY BYPASS GRAFT 04/12/2017 x 3 - HIP SURGERY HX Right pin - KNEE ARTHROSCOPY Left x2 - KNEE SURGERY HX Right TKR, right, arthoscopy x3 - PAST SURGICAL HISTORY OF 09/07/2017 08/15/17 fx radius in 2 places; plate and screws.Plate and screws 09/07/17 [facility] - TOE SURGERY HX Right - TOTAL HIP REPLACEMENT Right ALLERGIES Allergen Reactions - Lyrica [Pregabalin] Swelling FAMILY HISTORY Problem Relation Age of Onset - Arthritis Mother - Coronary Artery Disease Mother - Diabetes Mother - Heart Mother - Hypertension Mother - Alcohol/Drug Father - Arthritis Father - Heart Father - Hypertension Father Social History Tobacco Use - Smoking status: Never Smoker - Smokeless tobacco: Former User Types: Chew Substance Use Topics - Alcohol use: No Comment: seldom - Drug use: No Social History Social History Narrative Not on file REVIEW OF SYSTEMS: all of the following reviewed and negative except as noted below: GENERAL: no fever, chills, sweats, weight loss, +fatigue, generalized weakness HEENT: no headache, vision changes, eye discomfort, hearing change, ear discomfort, sinus pain, nasal discharge or congestion, oral lesions, soreness, dental problem NECK: See HPI CHEST: no shortness of breath, dyspnea on exertion, wheezing, cough, sputum production or chest pain HEART: no chest pain, palpitations, syncope ABDOMEN: no nausea, vomiting, constipation, diarrhea, abdominal pain : no dysuria, +urgency, frequency,no history of stones, incontinence NEURO: no confusion or alteration in consciousness, slurred speech, seizure, focal weakness EXTREMITIES: no new pain, edema, change in ROM HEME: no new adenopathy, bruises, petechiae PSYCH: no depression, anxiety, agitation PAIN PSYCHIATRIC EXAM: GENERAL: alert, oriented to person, place, time JUDGMENT AND INSIGHT: intact APPEARANCE: neatly groomed DEMEANOR: coooperative, not hostile, mistrustful, preoccupied, or demanding ACTIVITY: normal, not hyperactive or hypoactive, no tremors, tics EYE CONTACT: normal SPEECH: normal, rate, volume, articulation, coherence, spontaneity MOOD: normal, without overt sadness, grief, anxiety, appropriate to situation IDEATION: normal and without suicidal or homicidal ideation MEMORY: intact OBJECTIVE PHYSICAL EXAMINATION: see below for new or abnormal findings BP 144/74 Pulse 62 Temp (Src) 98.8 (Oral) Resp 18 Ht 5' 10 (1.78m) Wt 185 lb (83.9kg) SpO2 96% BMI 26.54 kg/(m2). O2 Therapy: Room Air, Liters: 2 GENERAL: well nourished and developed; no acute distress; alert and oriented x 3; intact judgement and insight HEENT: no evidence of trauma; cranial nerves intact; eyes clear EOMI; no hearing deficits apparent; nasal passages unremarkable; throat and mucous membranes clear NECK: supple without lymphadenopathy; no JVD; no thyromegaly CHEST: clear bilaterally to auscultation; normal chest movement; no rales or rhonchi HEART: regular rate and rhythm, normal S1 and S2, no murmurs, clicks, rubs, or gallops ABDOMEN: soft; nondistended; bowel sounds present; no hepatomegaly; no splenomegaly; no tenderness EXTREMITIES: no evidence of clubbing; no cyanosis; no deformity; no joint effusion; no edema NEURO: cranial nerves intact; no focal deficits; no confusion; no tremor; sensorium normal; b/l hand grasp 5/5 SKIN: no rash; no skin breakdown; no decubitus lesions HEME: no bruising; no adenopathy PSYCH: no evidence of depression; no anxiety; no agitation; no apparent hallucinations DATA: Diagnostic tests reviewed: Most recent labs and imaging results. CBC: Recent Labs 03/25/19 0410 WBC 8.79 RBC 2.98* HB 8.9* HCT 28.0* PLT 393* MCV 94.0 MCH 29.9 MPV 9.2 RDW 13.4 CMP: Recent Labs 03/25/19 0410 NA 135* K 5.1 CHLOR 104 CO2 23 BUN 83* CREAT 2.33* GLUC 217* TPROT 6.6 CA 8.7 TBILI 0.1* ALKPHOS 156* ALT 35 AST 16 ANION 13 Heme: No results for input(s): RETICP, ABSRETIC, LD, BOBY, FE, TIBC, TRANSFERSAT in the last 24 hours. 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 Arteriosclerotic Heart Disease (Ashd) Glaucoma Suspect of Left Eye Hypertension, Essential Lower Leg Edema Chronic Left Hip Pain Anemia of Chronic Renal Failure, Stage 3 (Moderate) (Hcc) Acute On Chronic Diastolic Congestive Heart Failure (Hcc) Recurrent Right Pleural Effusion Pvd (Peripheral Vascular Disease) (Hcc) Altered Mental Status Uti (Urinary Tract Infection) Chronic Combined Systolic and Diastolic Chf (Congestive Heart Failure) (Hcc) Hyperkalemia Hypoxia Hypoalbuminemia Garret (Acute Kidney Injury) (Hcc) Ckd (Chronic Kidney Disease) Stage 3, Gfr 30-59 Ml/Min (Hcc) High Phosphate Levels Hyponatremia Diet Orders Placed This Encounter DIET RENAL LAST BOWEL MOVEMENT Prior to Admission Opiate Status Episodic Outpatient Pain Management: No. Rx at D/C: TBD Rx on chart: No OARRS: see above- most recent 03/22 [place] 5/325 # 30 (4ds); 12/04 Neurontin 300mg # 180 (90ds) Pain Regimen/Notes (Opiate use last 24 hrs): APAP 650mg po q6h prn x 2 Flexeril 5mg tid prn xone Morphine 1-2mg IV q4h prn 1mg x one, 2mg x one PLAN: Pt admitted with worsening neck and bilateral shoulder pain; defer diagnostic w/u to primary team. Need to review recent imaging at [place]. Pt with hx chronic multifactorial pain 2/2 OA, anklylosing spondylitis and DM neuropathy Neurontin 200mg po qd (reduced dose with CKD 3/4) APAP 650mg po q6h prn Discontinue Morphine IV [place] 5/325 one po q4h prn mod/severe pain Change Flexeril to Baclofen 5mg po tid prn OT/PT Discussed with son at bedside Lara Feliciano MD [facility] CONSULT PROGon 03-25-2019 CONSULT PROG HNO ID: [id number] Author: Kiera Gonzalez Service: Endocrinology Author Type: Physician Type: Consult Progress Note Filed: 03/25/2019 12:07 PM Note Text: ENDOCRINOLOGY CONSULT PROGRESS NOTE SERVICE DATE: 03/25/2019 SERVICE TIME: 9:25 AM Subjective INTERVAL HPI: Following for DM type 2. Adm with severe neck and B/L shoulder pain. Has GARRET. Notes and orders reviewed. Diet: DIET RENAL p.o intake good, following diet. Activity:Up AdLib Review of Systems: PAIN ASSESSMENT: neck and shoulder pain GENERAL: No weight loss, malaise or fevers. RESPIRATORY: Negative for cough, hemoptysis, wheezing, COPD, dyspnea or shortness of breath CARDIOVASCULAR: no CP, has edema GI: No nausea, vomiting, or diarrhea ENDOCRINE: Negative for cold or heat intolerance, polyuria or polydipsia. NEURO: no numbness/weakness extremities The remainder of the review of systems is negative. Current Facility-Administered Medications Medication Dose Route Frequency - doxazosin 2 mg tab(s) (CARDURA) 2 mg ORAL BID - carvedilol 25 mg tab(s) (COREG) 25 mg ORAL BID w MEALS - latanoprost 0.005 % 1 Drop (XALATAN) 1 Drop BOTH EYES AT BEDTIME - NaCl 0.9% 3-5 mL 3-5 mL INTRAVENOUS q 12 H - heparin 5,000 Units injection 5,000 Units SUBCUTANEOUS q 12 H - ondansetron 4 mg tab(s) (ZOFRAN) 4 mg ORAL q 6 H PRN Or - ondansetron (PF) 4 mg injection (ZOFRAN) 4 mg INTRAVENOUS q 6 H PRN - magnesium hydroxide 400 mg/5 mL 30 mL (MOM) 30 mL ORAL DAILY PRN - bisacodyl 10 mg suppository (DULCOLAX) 10 mg RECTAL DAILY PRN - acetaminophen 650 mg tab(s) (TYLENOL) 650 mg ORAL q 6 H PRN - morphine 1-2 mg injection 1-2 mg INTRAVENOUS q 4 H PRN - cefTRIAXone 1 g in D5W 100 mL MB+ (ROCEPHIN) 1 g INTRAVENOUS q 24 H - NaCl 0.9% iv infusion 75 mL/hr INTRAVENOUS CONTINUOUS - dextrose 40 % 15 g 15 g ORAL PRN Or - glucagon 1 mg injection (GLUCAGEN) 1 mg INTRAMUSCULAR PRN Or - dextrose 50 % 12.5 g injection 12.5 g INTRAVENOUS PRN - NaCl 0.9% 3-5 mL 3-5 mL INTRAVENOUS q 12 H - aluminum-magnesium hydroxide-simethicone 200-200-20 mg/5 mL 30 mL (MAALOX,MYLANTA,MAG-AL PLUS) 30 mL ORAL DAILY PRN - docusate sodium 100 mg cap(s) (COLACE) 100 mg ORAL BID PRN - ipratropium-albuterol 3 mL nebulizer solution (DUONEB) 3 mL INHALATION q 4 H PRN - insulin lispro pen (rapid acting) (HumaLOG KWIKPEN) SUBCUTANEOUS w MEALS - calcium acetate 667 mg tab(s) (CALPHRON) 667 mg ORAL TID w MEALS - insulin lispro 8 Units pen (rapid acting) (HumaLOG KWIKPEN) 8 Units SUBCUTANEOUS w MEALS - insulin detemir U-100 15 Units injection (long acting) (LEVEMIR) 15 Units SUBCUTANEOUS DAILY (8 AM) - atorvastatin 40 mg tab(s) (LIPITOR) 40 mg ORAL AT BEDTIME - aspirin 81 mg chewable tab(s) 81 mg ORAL DAILY Objective PHYSICAL EXAM: GENERAL: sleepy (due to pain Rx), no distress SKIN: Skin color, texture, turgor normal. No rashes or lesions. OROPHARYNX: Lips, mucosa, and tongue normal. Teeth and gums normal. Oropharynx normal. LUNGS: Lungs clear to auscultation, Good diaphragmatic excursion CARDIAC: Normal S1 and S2; no rubs, murmurs, or gallops ABDOMEN: Abdomen soft, non-tender, BS normal, No masses or organomegaly EXTREMITIES: 1-2+ edema B/L LE, no clubbing or skin discoloration., No ulcers NEURO: Grossly normal cognition, motor function, and cranial nerves BP 184/96 Pulse 81 Temp (Src) 98.4 (Oral) Resp 18 Ht 5' 10 (1.78m) Wt 185 lb (83.9kg) SpO2 96% BMI 26.54 kg/(m2). O2 Therapy: Nasal Cannula, Liters: 2 DATA: Diagnostic tests reviewed for today's visit: Most recent labs and imaging results. Last 24 hr BS reviewed. Recent Labs 03/25/19 0629 03/25/19 0410 03/24/19202203/24/19 1609 03/24/19 1038 03/24/19 0615 03/24/19 0416 03/23/19 1858 GLUC -- 217* -- -- -- -- 200* -- 287* GLUCOSEMETER 216* -- 192* 214* 229* 197* -- < > -- < > = values in this interval not displayed. Assessment/Plan Type 2 diabetes mellitus, uncontrolled, without complication, with long-term current use of insulin ([facility]) POA: Yes Assessment AND Plan: 12-15 ears duration, on insulin for 5 years, Levemir 17 units qhs; off Metformin since 06/2018 due to CKD. A1c 10.4 (was 6.6 in 06/2018 before hip surgery) Checks BS q.o.d. at home, FBS 200-250's at home. BS 287 on adm, no Levemir given on 03/23 hs. Levemir resumed 10 units qam and Humalog 6 units tid started on 03/24 am. BS still high; increased Levemir to 15 units qam and Humalog to 8 units tid with SSI from today am. Watch BS. Neck/sholuder pain, hx ankylosing spondylitis GARRET (acute kidney injury) ([facility]) POA: Yes Assessment AND Plan: creat 2.33(2.47); per renal CKD (chronic kidney disease) stage 3, GFR 30-59 ml/min ([facility]) POA: Yes Assessment AND Plan: creat 1.54 in 07/2018 Arteriosclerotic heart disease (ASHD) POA: Yes Assessment AND Plan: hx Hypertension, essential POA: Yes Assessment AND Plan: per caprice UTI (urinary tract infection) POA: Unknown Assessment AND Plan: on A/B Chronic combined systolic and diastolic CHF (congestive heart failure) ([facility]) POA: Yes Assessment AND Plan: hx SIGNATURE: Kiera Gonzalez MD PATIENT NAME: Mauri Quinones DATE: March 25, 2019 TIME: 12:07 PM PAGER: [phone] Normal [facility] Comprehensive Panelon 2018 Creatinine [Mass/Vol] 2.33 mg/dL High 0.67-1.17 [facility] Comment on above: Performed By: #### G FR #### [facility] [address] [place], [place] [address] Protein [Mass/Vol] 6.6 g/dL Normal 6.4-8.2 [facility] Comment on above: Performed By: #### G FR #### [facility] [address] [place], [place] [address] ALP [Catalytic activity/Vol] 156 U/L High 45-117 [facility] Comment on above: Performed By: #### G FR #### [facility] [address] [place], [place] [address] ALT [Catalytic activity/Vol] 35 U/L Normal 12-78 [facility] Comment on above: Performed By: #### G FR #### [facility] [address] [place], [place] [address] Bilirubin [Mass/Vol] 0.1 mg/dL Low 0.2-1.0 [facility] Comment on above: Performed By: #### G FR #### [facility] [address] [place], [place] [address] AST [Catalytic activity/Vol] 16 U/L Normal 15-37 [facility] Comment on above: Performed By: #### G FR #### [facility] [address] [place], [place] [address] Glucose [Mass/Vol] 217 mg/dL High 70-99 [facility] Comment on above: Performed By: #### G FR #### [facility] [address] [place], [place] [address] Albumin [Mass/Vol] 1.7 g/dL Low 3.4-5.0 [facility] Comment on above: Performed By: #### G FR #### [facility] [address] [place], [place] [address] Anion gap [Moles/Vol] 13 mmol/L Normal 8-16 [facility] Comment on above: Performed By: #### G FR #### [facility] [address] [place], [place] [address] Calcium [Mass/Vol] 8.7 mg/dL Normal 8.5-10.1 [facility] Comment on above: Performed By: #### G FR #### [facility] [address] [place], [place] [address] CO2 [Moles/Vol] 23 mmol/L Normal 21-32 [facility] Comment on above: Performed By: #### G FR #### [facility] [address] [place], [place] [address] Urea nitrogen [Mass/Vol] 83 mg/dL High 7-18 [facility] Comment on above: Performed By: #### G FR #### [facility] [address] [place], [place] [address] Chloride [Moles/Vol] 104 mmol/L Normal 98-107 [facility] Comment on above: Performed By: #### G FR #### [facility] [address] [place], [place] [address] Potassium [Moles/Vol] 5.1 mmol/L Normal 3.5-5.1 [facility] Comment on above: Performed By: #### G FR #### [facility] [address] [place] [address] Sodium [Moles/Vol] 135 mmol/L Low 136-145 [facility] Comment on above: Performed By: #### G FR #### [facility] [address] [place], [place] [address] Hemogramon 03-25-2019 Erythrocyte distribution width (RBC) [Ratio] 13.4 % Normal 11.6-14.4 [facility] Comment on above: Performed By: #### P 14 #### [facility] [address] [place], [place] [address] Hematocrit (Bld) [Volume fraction] 28.0 % Low 40.1-51.0 [facility] Comment on above: Performed By: #### P 14 #### [facility] [address] [place], [place] [address] Hemoglobin (Bld) [Mass/Vol] 8.9 g/dL Low 13.7-17.5 [facility] Comment on above: Performed By: #### P 14 #### [facility] [address] [place], [place] [address] MCH (RBC) [Entitic mass] 29.9 pg Normal 25.7-32.2 [facility] Comment on above: Performed By: #### P 14 #### [facility] [address] [place], [place] [address] MCHC (RBC) [Mass/Vol] 31.8 % Low 32.3-36.5 [facility] Comment on above: Performed By: #### P 14 #### [facility] [address] [place] [address] MCV (RBC) [Entitic vol] 94.0 fL Normal 83.2-95.6 [facility] Comment on above: Performed By: #### P 14 #### [facility] [address] [place] [address] Platelet mean volume (Bld) [Entitic vol] 9.2 fL Normal 8.7-12.0 [facility] Comment on above: Performed By: #### P 14 #### [facility] [address] [place], [place] [address] Platelets (Bld) [#/Vol] 393 thou/cmm High 141-365 [facility] Comment on above: Performed By: #### P 14 #### [facility] [address] [place], [place] [address] RBC (Bld) [#/Vol] 2.98 mil/cmm Low 4.63-6.08 [facility] Comment on above: Performed By: #### P 14 #### [facility] [address] [place], [place] [address] RDW SD 46.3 fl High 36.1-45.8 [facility] Comment on above: Performed By: #### P 14 #### [facility] [address] [place], [place] [address] WBC (Bld) [#/Vol] 8.79 thou/cmm Normal 4.23-9.07 [facility] Comment on above: Performed By: #### P 14 #### [facility] [address] [place], [place] [address] Lipid Profileon 03-25-2019 Cholesterol in HDL [Mass/Vol] 42 mg/dL Normal >40 [facility] Comment on above: Performed By: #### G FR #### [facility] [address] [place], [place] [address] Cholesterol in LDL [Mass/Vol] 50 mg/dL Normal [facility] Comment on above: Result Comment: No C AD and with fewer than 2 CAD risk factors <160 mg/dL No CAD but with 2 or more CAD risk factors <130 mg/dL Definite CAD or other atherosclerotic disease <100 mg/dL Performed By: #### G FR #### [facility] [address] [place], [place] [address] Cholesterol in LDL/Cholesterol in HDL [Mass ratio] 1.2 Normal 1.1-4.8 [facility] Comment on above: Result Comment: LDL, VLDL,LDL/HDL, Invalid if Triglyceride >400 Performed By: #### G FR #### [facility] [address] [place], [place] [address] Cholesterol.total/Cho lesterol in HDL [Mass ratio] 2.6 {ratio} Normal 2.1-7.3 [facility] Comment on above: Performed By: #### G FR #### [address] [address] Cholesterol in VLDL [Mass/Vol] 19 mg/dL Normal <50 Desired [facility] Comment on above: Performed By: #### G FR #### [facility] [address] [place], [place] [address] Triglyceride [Mass/Vol] 95 mg/dL Normal 0-149 [facility] Comment on above: Result Comment: < 20 0 Desirable Result invalid if not a fasting specimen. Performed By: #### G FR #### [facility] [address] [place], [place] [address] Cholesterol [Mass/Vol] 111 mg/dL Normal 0-199 [facility] Comment on above: Result Comment: <200 Desirable 200-240 Borderline >240 High Performed By: #### G FR #### [facility] [place] [id number] NURSING PROGon 03-25-2019 NURSING PROG HNO ID: [id number] Author: Vandana (Rn) BISMARK Stephen Service: ? Author Type: Registered Nurse Type: Nursing Progress Note Filed: 03/25/2019 9:02 AM Note Text: Nursing Progress Note Patient Name: Mauri Quinones Patient Location: [id number]- Daily Note: Spoke with family member, Staci Gonsalves left phone number and would like to speak to the doctor regarding some options for the pt. Will notify doctor Qavi about this. This note was completed by: Vandana Stephen RN [facility] PROGRESSon 03-25-2019 PROGRESS HNO ID: [id number] Author: Daniel Mcfadden MD Service: Nephrology Author Type: Physician Type: Progress Notes Filed: 03/25/2019 12:38 PM Note Text: CONSULT PROGRESS NOTE NEPHROLOGY SERVICE Following for GARRET on CKD Pt said his pain is much better controlled No nausea No vomiting. No SOB MEDICATIONS: Current Facility-Administered Medications Medication Dose Route Frequency - doxazosin 2 mg tab(s) (CARDURA) 2 mg ORAL BID - carvedilol 25 mg tab(s) (COREG) 25 mg ORAL BID w MEALS - latanoprost 0.005 % 1 Drop (XALATAN) 1 Drop BOTH EYES AT BEDTIME - NaCl 0.9% 3-5 mL 3-5 mL INTRAVENOUS q 12 H - heparin 5,000 Units injection 5,000 Units SUBCUTANEOUS q 12 H - ondansetron 4 mg tab(s) (ZOFRAN) 4 mg ORAL q 6 H PRN Or - ondansetron (PF) 4 mg injection (ZOFRAN) 4 mg INTRAVENOUS q 6 H PRN - magnesium hydroxide 400 mg/5 mL 30 mL (MOM) 30 mL ORAL DAILY PRN - bisacodyl 10 mg suppository (DULCOLAX) 10 mg RECTAL DAILY PRN - acetaminophen 650 mg tab(s) (TYLENOL) 650 mg ORAL q 6 H PRN - cefTRIAXone 1 g in D5W 100 mL MB+ (ROCEPHIN) 1 g INTRAVENOUS q 24 H - NaCl 0.9% iv infusion 75 mL/hr INTRAVENOUS CONTINUOUS - dextrose 40 % 15 g 15 g ORAL PRN Or - glucagon 1 mg injection (GLUCAGEN) 1 mg INTRAMUSCULAR PRN Or - dextrose 50 % 12.5 g injection 12.5 g INTRAVENOUS PRN - NaCl 0.9% 3-5 mL 3-5 mL INTRAVENOUS q 12 H - aluminum-magnesium hydroxide-simethicone 200-200-20 mg/5 mL 30 mL (MAALOX,MYLANTA,MAG-AL PLUS) 30 mL ORAL DAILY PRN - docusate sodium 100 mg cap(s) (COLACE) 100 mg ORAL BID PRN - ipratropium-albuterol 3 mL nebulizer solution (DUONEB) 3 mL INHALATION q 4 H PRN - insulin lispro pen (rapid acting) (HumaLOG KWIKPEN) SUBCUTANEOUS w MEALS - calcium acetate 667 mg tab(s) (CALPHRON) 667 mg ORAL TID w MEALS - insulin lispro 8 Units pen (rapid acting) (HumaLOG KWIKPEN) 8 Units SUBCUTANEOUS w MEALS - insulin detemir U-100 15 Units injection (long acting) (LEVEMIR) 15 Units SUBCUTANEOUS DAILY (8 AM) - atorvastatin 40 mg tab(s) (LIPITOR) 40 mg ORAL AT BEDTIME - aspirin 81 mg chewable tab(s) 81 mg ORAL DAILY - polyethylene glycol 3350 17 g packet (MIRALAX, GLYCOLAX) 17 g ORAL DAILY - furosemide 40 mg tab(s) (LASIX) 40 mg ORAL DAILY - gabapentin 200 mg cap(s) (NEURONTIN) 200 mg ORAL DAILY - HYDROcodone 5 mg - acetaminophen 325 mg tablet (NORCO) 1 tablet ORAL q 4 H PRN - baclofen 5 mg tab(s) (LIORESAL) 5 mg ORAL TID PRN Objective PHYSICAL EXAM: BP 144/74 Pulse 62 Temp 37.1 ?C (98.8 ?F) (Oral) Resp 18 Ht 177.8 cm (5' 10) Wt 83.9 kg (185 lb) SpO2 96% BMI 26.54 kg/m? Intake/Output Summary (Last 24 hours) at 03/25/2019 1231 Last data filed at 03/25/2019 0016 Gross per 24 hour Intake ? Output 900 ml Net -900 ml Constitutional: No acute distress, Responsive, Normal habitus and Well-nourished Neck: Trachea midline No jugular venous distension Cardiovascular: Regular rate and rhythm, normal S1 and S2, no murmurs, rubs, or gallops +1 edema of LE Respiratory: Normal respiratory effort. Lungs clear bilaterally. Abdomen: Soft, non-tender, non-distended. Normal bowel sounds. No hepatosplenomegaly. Psychiatric: Alert and oriented x self, place, time, and setting Normal mood/affect DATA: Diagnostic tests reviewed for today's visit: Most recent labs Recent Labs 03/25/19 0410 03/24/19 1019 03/24/19 0416 03/23/19 1858 NA 135* -- 131* 132* K 5.1 -- 5.1 4.9 CHLOR 104 -- 103 102 CO2 23 -- 21 23 BUN 83* -- 83* 81* CREAT 2.33* -- 2.47* 2.46* GLUC 217* -- 200* 287* ANION 13 -- 12 12 CA 8.7 -- 8.7 8.4* P -- 6.0* 6.5* -- MG -- 2.0 2.1 -- Recent Labs 03/25/19 0410 03/24/19 0416 03/23/19 1858 WBC 8.79 7.18 6.40 HB 8.9* 9.1* 10.2* HCT 28.0* 29.2* 32.2* PLT 393* 348 320 Recent Labs 03/24/19 1712 03/23/19 2207 07/25/18 1515 COLOR -- YELLOW Yellow CLARITY -- -- Clear UGLUC -- 500* Negative UBILI -- NEGATIVE Negative UKET -- NEGATIVE Negative SPGR -- 1.019 1.010 UHB -- -- Negative UPH -- 5.5 6.0 UPROT 473.4* 100* 100* NITRITES -- NEGATIVE Negative LEUKEST -- LARGE* Negative UWBC -- >900.0* 0-5 URBC -- 57.3* 0-3 Assessment/Plan 1- GARRET on CKD. Baseline Cr seems around 2.3-2.4 mg/dL. 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 Pro/Cr is 6 mg/mg which is nephrotic range proteinuria Will d/c IVF. Will start lasix 40 mg PO daily Pt cannot be on ACEI/ARB due to h/o hyperkalemia Check renal function ? 2- HTN: BP is above the target.BP target < 130/80. Avoid ACEI/ARB due to hyperkalemia D/c IVF On Doxazosin, and coreg. Will start Lasix 40 mg PO daily ? 3- Hyperkalemia: Pt had hyperkalemia 2 days ago when he visited [place] [facility] . Pt was given Kayexalate. K is wnl today Avoid ACEI/ARB. Renal diet ? 4- Hyperphosphatemia: continue Phoslo 667 mg one with each meal ? 5- UTI: On ceftriaxone 1g IV daily Renal team will continue to follow Please call if any question at [phone] D/w Dr Surekha Mcfadden M.D [facility] PROGRESS HNO ID: [id number] Author: Mariela Irby Service: Hospital Medicine Author Type: Physician Type: Progress Notes Filed: 03/25/2019 5:28 PM Note Text: DEPARTMENT OF HOSPITAL MEDICINE PROGRESS NOTE SERVICE DATE: 03/25/2019 SERVICE TIME: 11:21 AM Hospital Medicine/Primary Attending: Mariela Irby, DO NIGHT AND WEEKEND COVERAGE: After 7pm, please call cross cover pager #[phone] Subjective INTERVAL HPI: Patient seen and examined. He is up to chair. His neck is feeling better today. He has no CP or SOB. No abd pain or nausea. MEDICATIONS: Reviewed Objective PHYSICAL EXAM: BP 184/96 Pulse 81 Temp (Src) 98.4 (Oral) Resp 18 Ht 5' 10 (1.78m) Wt 185 lb (83.9kg) SpO2 96% BMI 26.54 kg/(m2). O2 Therapy: Nasal Cannula, Liters: 2 Physical Exam Performed Constitutional - Vitals as above, not in acute distress Resp - Clear to auscultate both sides, no wheezes, crackles or rales, no labored breathing CVS- RRR. 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 Need to be continued yes DATA: Diagnostic tests reviewed for today's visit: Most recent labs and imaging results. Assessment/Plan 63 year old male here with neck pain and UTI. Did get update from patient's family member Staci Gonsalves with patient's permission. She states they believe they did MRI C spine at [place]-will request records #neck pain-s/p imaging and d/c from [place], has neck brace ordered on admission, has hx -does not see rheum, should get referral at d/c, pain mgmt consult #UTI-continue rocephin and await final culture data #uncontrolled DM2-accuchecks and insulin as per endocrinology-appreciate recs #metabolic encephalopathy-from UTI, follow #GARRET on CKD-on IV fluids overnight with improvement, nephrology following, follow volume status #anemia-stable, follow, no evidence bleeding #HLD-statin #HTN-continue home meds but holding vanessa-I and nephrotoxins, on coreg and cardura #constipation-bowel regimen #weakness-PT and OT Medication and Non-Pharmacologic VTE Prophylaxis/Anticoagulants Anticoagulant AND Antiplatelet Medications (From admission, onward) Start Dose Route Frequency Ordered Stop 03/25/19 0900 aspirin 81 mg chewable tab(s) 81 mg ORAL DAILY 03/25/19 0816 -- 03/24/19 0300 heparin 5,000 Units injection (Medical At Risk ) 5,000 Units SUBCUTANEOUS EVERY 12 HOURS 03/24/19 0232 -- 03/24/19 0945 activity - mobilize patient ([place]) 03/24/19 0245 pneumatic compression stockings ([place], [place]) 03/24/19 0245 activity - mobilize patient ([place], [place]) VTE Prophylaxis: VTE prophylaxis appropriate Disposition: Home with [facility] Plan of care discussed with: Patient SIGNATURE: Mariela Irby DO PATIENT NAME: Mauri Quinones DATE: March 25, 2019 TIME: 11:21 AM PAGER/CONTACT #: [phone] Normal [facility] Protimeon 03-25-2019 INR Coag (PPP) [Relative time] 1.00 {INR} Normal 0.90-1.30 [facility] Comment on above: Result Comment: Catherine min K Antagonist (VKA) Therapeutic Range: INR 2 to 3 (Target INR of 2.5) Note: For patients treated with VKA drugs, such as warfarin, the [place] [employer] 2012 Guideline recommends a therapeutic INR range of 2 to 3 (target INR of 2.5). This recommendation includes high-risk patients with antiphospholipid syndrome with previous arterial or venous thromboembolism, current-generation mechanical or bioprosthetic aortic heart valve replacement. VKA Therapeutic Range for some Mechanical Valve Replacement: INR 2.5 to 3.5 (Target INR of 3) Note: Patients with mechanical aortic valve replacement and additional risk factors for thromboembolic events (atrial fibrillation, previous thromboembolism, LV dysfunction, hypercoagulable conditions) or an older generation mechanical AVR (i.e., ball in-Cage) or any mechanical MVR should have a INR therapeutic range of 2.5 to 3.5 target INR of 3). Indy GH, et al. Chest 2012; 141:7S-47S Victoria RA et al. JAC 2017; 70: 252-289 Performed By: #### G FR #### [place] [id number] PT Coag (PPP) [Time] 10.4 s Normal 9.7-13.0 [facility] Comment on above: Performed By: #### G FR #### [place] [id number] ALLIED HEALTHon 03-24-2019 ALLIED HEALTH HNO ID: [id number] Author: Macey (Rn) BISMARK Cruz Service: Diabetes Education Author Type: Registered Nurse Type: Allied Health Filed: 03/24/2019 2:45 PM Note Text: DIABETES EDUCATION PROGRESS NOTE SERVICE DATE: 03/24/2019 SERVICE TIME: 1430 RECOMMENDATIONS: Patient needs to follow-up with primary care physician after discharge. Prescriptions for diabetic supplies Humalog insulin Patient has taken Humalog in past and is willing to restart. PATIENT HISTORY/ASSESSMENT: Previously diagnosed: Type 2 Treatment prior to hospitalization: Insulin: Levemir Has meter: Frequency of self-blood glucose monitorin times per day. Usual blood glucose results at home: varies. TOPIC(S): Survival Skills: Basic diabetes mellitus disease process Medication therapy: Injectables - Insulin lispro (Humalog) and Insulin detemir (Levemir) Acute complications: Hypoglycemia and Hyperglycemia Blood glucose monitoring: Timing techniques, Logging results, Alternating fingers, Disposal of sharps Blood glucose targets: Type I/Type II: Pre-meal 70-130 mg/dl, Bedtime glucose 100-140 mg/dl Patient Education/Health Promotion: Complication prevention, Diet, Exercise and Self management and follow up Diabetes Management: Hemaglobin A1C and when to call the doctor EDUCATION: Cognitive ability: Alert and Oriented. Motivation to learn: Interested. Barriers to learning: None Family support: High - Very involved in pt care Education Type: Individual instruction Written instruction - handouts Verbal instruction Response to education: States/Identifies. Education provided to: Patient and Family. Teachback method used. 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 No Advance Directive: Health Literacy: 1. How often do you need to have someone help you when you read instructions, pamphlets, or other written material from your doctor or pharmacy? Never - 1 2. How confident are you filling out medical forms by yourself? Quite a bit - 2 If Patient scores > 3 on either question, the following interventions were put into place: Patient did not score > 3 FUNCTIONAL AND COGNITIVE/BEHAVIORAL PRIOR TO ADMISSION: Baseline Mental Status: Alert AND Oriented, Person, Place , Time and Situation Functional Status: Independent Does Patient Currently Receive Any Community Services or Home Care? None Equipment Prior to Admission: Cane - Straight Glucometer Walker Has the Patient Been in a Penitentiary Facility in the Past 30 days? No SOCIAL: Living Arrangement: Home, first floor bed/bath Lives With: Spouse and daughter, Floyd Financial Resources: Retired Primary Contact: Extended Emergency Contact Information Primary Emergency Contact: Nick Yun Ramírez Relation: Spouse Supportive: Yes Other Important Patient Contacts: Daughter, Floyd. patient doesn't know her cell number Caregiver Assessment: Caregiver is ready, willing and able to meet the patient's needs as recommended by the inter-professional team? Yes Patient's transition needs and plan for meeting these needs: Assist of and daughter Does the patient have an acute stroke diagnosis, or has the patient had a stroke during this admission? Unable to assess at this time Medication Adherence: I am convinced of the importance of my prescription medication: Agree completely - 0 I worry that my prescription medication will do more harm than good to me Disagree mostly - 0 I feel financially burdened by my [id number] expenses for my prescription medication: Disagree mostly -0 Patient is categorized as low risk < 2 Are you interested in bedside delivery of your medications? No Food Concerns: In the Last Month, Have You had Trouble Getting Food? No trouble getting food During the Last Month, Have You Worried Whether Your Food Would Run Out Before You Had Enough Money to Buy More? No Is the Patient Psychosocially Complex? No ASSESSMENT AND PLAN: Medical Needs: 2 or more chronic diseases Psychosocial Needs: None FREEDOM OF CHOICE EXPLAINED: N/A POTENTIAL TRANSITION PLANS To Be Determined PCP: Dr. Davis Pharmacy: [facility] Met with patient. He tells me he resides with his spouse and daughter, Floyd. He states he is normally indep with ADL's with use of a cane but states he has periodic spurts where his legs do not function properly. PT/OT evals are pending. Will follow for their recs and will follow clinical course. Patient states his daughter is very helpful at home. Patient lives in [facility]. SIGNATURE: Addie Tapia RN PATIENT NAME: Mauri Quinones DATE: March 24, 2019 TIME: 8:42 AM PAGER/CONTACT #: [phone] Normal [facility] CONSULTon 03-24-2019 CONSULT HNO ID: [id number] Author: Kiera Gonzalez Service: Endocrinology Author Type: Physician Type: Consults Filed: 03/25/2019 1:04 PM Note Text: [facility] - Consultation PATIENT NAME: MAURI QUINONES CSN: [id number] DATE OF : 1955 SEX/AGE: M/63 PATIENT TYPE: I [place] [facility] [place] [facility] LOCATION: [id number] DATE OF SERVICE: 03/24/2019 TIME OF SERVICE: 09:53 AM REASON FOR CONSULTATION: Diabetes management. HISTORY: The patient is a 63-year-old male, who was admitted with bilateral shoulder pain and neck pain. The patient has history of ankylosing spondylitis and he started having severe pain about 10 days ago and it is not getting better. He had been to [facility] twice. Regarding diabetes, the patient has history of type 2 diabetes for 12-15 years. He is not sure of the exact duration. He has been on insulin for about 5 years. He used to be on metformin and was taken off metformin last year June 2018, when he had his hip surgery, likely due to kidney problems. He has been on Levemir 17 units every night. He checks his blood sugars every 2 days and they have been 200 to 250s, noticed that in June 2018, he had a HbA1c of 6.6, currently his HbA1c is 10.4. The patient does have retinopathy and had injections in his eyes. He does have neuropathy and numbness and tingling in his feet. He also has chronic kidney disease. 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 He states he has gained 5-6 pounds weight over the last few months. His activity has been decreased. PAST MEDICAL HISTORY: History of type 2 insulin-requiring diabetes, history of diabetic neuropathy; history of coronary artery disease and CABG in 2017 after patient had [place], history of CHF, history of arthritis, history of right hip and right knee replacement, history of chronic kidney disease. FAMILY HISTORY: Positive for diabetes in his mother. SOCIAL HISTORY: No history of smoking or alcohol use. REVIEW OF SYSTEMS: As per history of present illness, otherwise, negative. PHYSICAL EXAMINATION: GENERAL: The patient is lying in bed, in no acute distress. MEASUREMENTS: Height 5 feet 10 inches, weight 176 pounds or 80 kilograms. VITAL SIGNS: Afebrile. Vital signs are stable. SKIN: Warm and dry. Small calluses over the first dose. No ulcers. No rash. EYES: Pupils appear round. NECK: Supple. No goiter palpable on thyroid exam. LUNGS: Clear to auscultation. CVS: Regular rate and rhythm. ABDOMEN: Soft, nontender. EXTREMITIES: The patient has 1 to 2+ edema over both lower legs and ankles. Pedal pulses are 3+. NEUROLOGIC: Grossly intact. LABORATORY DATA: Sodium 131, potassium 5.1, chloride 103, CO2 of 21, BUN 83, creatinine 2.47. Blood sugar last night 287, this morning 1 a.m. was 215 and 6 a.m. was 197. IMPRESSION: 1. Diabetes mellitus type 2, insulin requiring, uncontrolled with high HbA1c of 10.4% and blood sugars at home of 200 to 250s. The patient is only on basal insulin Levemir at home. He was taken off metformin June of 2018 because of kidney disease. 2. Neck pain and bilateral shoulder pain. The patient has history of arthritis and ankylosing spondylitis. Workup in progress. He has not taken any steroids recently. 3. Acute kidney injury with chronic kidney disease. RECOMMENDATION: 1. Discussed with the patient the importance of glycemic control and importance of monitoring blood sugars regularly. 2. We will continue carb controlled diabetic diet, renal diet, and continue to check the blood sugars before meals and bedtime. 3. Patient did not get any basal insulin last night. I will start him back on Levemir but started a lower dose 10 units every morning and we will also start him on programmed Humalog 6 units with each meal with a sliding scale. 4. Discussed with the patient that he is going to be needing Humalog at home to control his blood sugars better and basal insulin alone is not going to control him. We will follow the patient with you. Kiera Gonzalez MD Endocrinology SM:pita /[id number] Normal [facility] CONSULT HNO ID: [id number] Author: Donavan Comer MD Service: Nephrology Author Type: Resident Type: Consults Filed: 03/24/2019 10:49 AM Note Text: -- Attestation signed by Daniel Mcfadden MD at 03/24/2019 11:10 AM Renal attending: I have seen and examined the patient myself.I agree with Resident Dr. Comer's note in addition to the changes below .I discussed the case with the resident This is 63 year old male with PMH of CKD stage 3 from DNP, DM, HTN, Arthritis, CAD and CHF. Pt presented with neck pain. Pt was admitted. He was found to have high WBC in the urine and he is being treated for UTI Renal team was consulted for GARRET on CKD. Cr in July 2018 was 1.6 mg/dL. Pt presented with Cr 2.4 mg/dl. Pt has been on lasix and metolazone at home which was held at admission. Pt is currently on NS at 75 cc/hour Pt admitted taking Aleve 5 tabs for the last month. He also also has weak urinary stream Denied recent IV contrast exposure PE: General : NAD Dry oral mucosa Heart S1/S2 RRR Chest CTA Ext trace edema A/P 1- GARRET on CKD. Baseline Cr seems around 1.6 mg/dL as per July 2018 lab. CKD showed DNP GARRET might be from prerenal from lasix/metolazone. Another possibility is urine retention from BPH. I doubt the patient has AIN or pyelonephritis I agree with holding diuretics. Avoid ACEI/ARB I agree with IVF NS at 75 cc/hour Will check post void bladder scan Will do pro/Cr and Alb/Cr Will check FeUrea Check renal function 2- HTN: BP is above the target. Will monitor for now. If remains elevated will increase doxazosin dose. Avoid ACEI/ARB for now 3- Hyperkalemia: Pt had hyperkalemia 2 days ago when he visited [place] [facility] . Pt was given Kayexalate. K is wnl today Avoid ACEI/ARB. Renal diet 4- Hyperphosphatemia: Will start Phoslo 667 mg one with each meal 5- UTI: On ceftriaxone 1g IV daily Thank you for the consult. Renal team will continue to follow Please call if any question at [phone] Daniel Mcfadden MD -- CONSULT: NEPHROLOGY SERVICE SERVICE DATE: 03/24/2019 SERVICE TIME: 10:10 AM REASON FOR CONSULT: GARRET on CKD PRIMARY CARE PHYSICIAN: Aditya Davis PA-C Subjective Mr. Quinones is a 63 year old male with the PMH of right hip and right knee replacement, CABG, CAD, DM, NSTEMI, ankylosis spondylosis and CKD, who presents for b/l neck and shoulder pain. It staretd when he was mowing grass a week ago and he has been to [place] [facility] twice, and was treated with pain meds and muscle relaxants. He was also diagnosed of UTI and started on keflex, outpatient. now switched to rocephin. Nephrology has been consulted for INDIRA on CKD. Per chart review, patient was instructed to follow up with a lottery office manager but he has not seen one yet. Baseline creatinine is 2.0-2.2 FUNCTIONAL STATUS: Independent PAST MEDICAL HISTORY Diagnosis Date - GARRET (acute kidney injury) ([facility]) 03/24/2019 - Ankylosing spondylitis ([facility]) - CAD (coronary artery disease) - Cellulitis - Chronic combined systolic and diastolic CHF (congestive heart failure) ([facility]) 03/24/2019 - CKD (chronic kidney disease) stage 3, GFR 30-59 ml/min ([facility]) 03/24/2019 - Constipation - Diabetes ([facility]) - Gout - High phosphate levels 03/24/2019 - Hx of fracture multiple bones - Hyperkalemia 03/24/2019 - Hypoalbuminemia 03/24/2019 - Hyponatremia 03/24/2019 - Hypoxia 03/24/2019 - NSTEMI (non-ST elevated myocardial infarction) (HCC) 03/12/2017 [facility] admit - Osteoarthritis PAST SURGICAL HISTORY Procedure [...] Spectrum ortho - TOE SURGERY HX Right - TOTAL HIP REPLACEMENT Right FAMILY HISTORY Problem Relation Age of Onset - Arthritis Mother - Coronary Artery Disease Mother - Diabetes Mother - Heart Mother - Hypertension Mother - Alcohol/Drug Father - Arthritis Father - Heart Father - Hypertension Father Social History Tobacco Use - Smoking status: Never Smoker - Smokeless tobacco: Former User Types: Chew Substance Use Topics - Alcohol use: No Comment: seldom - Drug use: No Medications Prior to Admission: atorvastatin (LIPITOR) 10 mg tablet Take 10 mg by mouth once daily. Disp: Rfl: gabapentin (NEURONTIN) 600 mg tablet Take 1 tablet by mouth once daily for 30 days. Disp: 30 tablet Rfl: 0 insulin detemir U-100 (LEVEMIR FLEXTOUCH U-100 INSULN) 100 unit/mL (3 mL) inpn injection Inject 17 Units subcutaneously daily at bedtime. Disp: Rfl: doxazosin (CARDURA) 4 mg tablet Take 0.5 tablets by mouth twice daily. Disp: Rfl: 11 furosemide (LASIX) 40 mg tablet Take 1 tablet by mouth once daily. (Patient taking differently: Take 60 mg by mouth once daily. ) Disp: Rfl: Taking carvedilol (COREG) 25 mg tablet Take 25 mg by mouth twice daily with meals. Disp: Rfl: Taking metOLAzone (ZAROXOLYN) 2.5 mg tablet Take 2.5 mg by mouth every other day. Disp: Rfl: Not Taking MULTIVITAMIN/IRON/FOLIC ACID (DAILY MULTI ORAL) Take 2 Each by mouth once daily. Disp: Rfl: Taking Tadalafil (CIALIS) 20 mg tab(s) Take 1 tablet by mouth as needed. Disp: 30 tablet Rfl: 5 Taking aspirin, enteric coated (ASPIR-81) 81 mg EC tablet Take 1 tablet by mouth once daily. Disp: 90 tablet Rfl: 3 Not Taking latanoprost (XALATAN) 0.005 % ophthalmic solution Use 1 Drop in both eyes daily at bedtime. into affected eye(s). Disp: Rfl: 0 Taking Promethazine-DM (PHENERGAN-DM) 6.25-15 mg/5 mL syrup Take 5 mL by mouth four times daily as needed. Disp: 120 mL Rfl: 0 benzonatate (TESSALON PERLE) 100 mg capsule Take 1 capsule by mouth three times daily as needed. Disp: 30 capsule Rfl: 0 tamsulosin ER (FLOMAX) 0.4 mg cap Take 0.4 mg by mouth daily at bedtime. Disp: Rfl: mometasone (ELOCON) 0.1 % cream Apply 1 application to affected area once daily. Do not use more than two weeks Disp: 45 g Rfl: 0 pravastatin (PRAVACHOL) 80 mg tablet Take 80 mg by mouth once daily. Disp: Rfl: Taking Current Facility-Administered Medications Medication Dose Route Frequency - doxazosin 2 mg tab(s) (CARDURA) 2 mg ORAL BID - carvedilol 25 mg tab(s) (COREG) 25 mg ORAL BID w MEALS - atorvastatin 10 mg tab(s) (LIPITOR) 10 mg ORAL AT BEDTIME - benzonatate 100 mg cap(s) (TESSALON PERLE) 100 mg ORAL TID PRN - tamsulosin ER 0.4 mg cap(s) (FLOMAX) 0.4 mg ORAL AT BEDTIME - latanoprost 0.005 % 1 Drop (XALATAN) 1 Drop BOTH EYES AT BEDTIME - NaCl 0.9% 3-5 mL 3-5 mL INTRAVENOUS q 12 H - heparin 5,000 Units injection 5,000 Units SUBCUTANEOUS q 12 H - ondansetron 4 mg tab(s) (ZOFRAN) 4 mg ORAL q 6 H PRN Or - ondansetron (PF) 4 mg injection (ZOFRAN) 4 mg INTRAVENOUS q 6 H PRN - magnesium hydroxide 400 mg/5 mL 30 mL (MOM) 30 mL ORAL DAILY PRN - bisacodyl 10 mg suppository (DULCOLAX) 10 mg RECTAL DAILY PRN - acetaminophen 650 mg tab(s) (TYLENOL) 650 mg ORAL q 6 H PRN - morphine 1-2 mg injection 1-2 mg INTRAVENOUS q 4 H PRN - cefTRIAXone 1 g in D5W 100 mL MB+ (ROCEPHIN) 1 g INTRAVENOUS q 24 H - NaCl 0.9% iv infusion 75 mL/hr INTRAVENOUS CONTINUOUS - dextrose 40 % 15 g 15 g ORAL PRN Or - glucagon 1 mg injection (GLUCAGEN) 1 mg INTRAMUSCULAR PRN Or - dextrose 50 % 12.5 g injection 12.5 g INTRAVENOUS PRN - NaCl 0.9% 3-5 mL 3-5 mL INTRAVENOUS q 12 H - aluminum-magnesium hydroxide-simethicone 200-200-20 mg/5 mL 30 mL (MAALOX,MYLANTA,MAG-AL PLUS) 30 mL ORAL DAILY PRN - docusate sodium 100 mg cap(s) (COLACE) 100 mg ORAL BID PRN - ipratropium-albuterol 3 mL nebulizer solution (DUONEB) 3 mL INHALATION q 4 H PRN - insulin detemir U-100 10 Units injection (long acting) (LEVEMIR) 10 Units SUBCUTANEOUS DAILY (8 AM) - insulin lispro 6 Units pen (rapid acting) (HumaLOG KWIKPEN) 6 Units SUBCUTANEOUS w MEALS - insulin lispro pen (rapid acting) (HumaLOG KWIKPEN) SUBCUTANEOUS w MEALS Allergies As of Date: 03/23/2019 Allergen Noted Reaction LYRICA [PREGABALIN] 03/23/2017 Swelling Fully Assessed 03/23/2019 COMPLETE REVIEW OF SYSTEMS: GENERAL: No weight loss, malaise or fevers RESPIRATORY: Negative for cough, hemoptysis, wheezing, COPD, dyspnea or shortness of breath CARDIOVASCULAR: Negative for chest pain, leg swelling, hypertension, CHF or palpitations GI: No nausea, vomiting, or diarrhea : No history of dysuria, frequency or incontinence Objective PHYSICAL EXAM: Physical Exam Performed: GENERAL: Alert, no distress, cooperative LUNGS: Coarse BS mostly on the lefts teo CARDIAC: Normal S1 and S2; no rubs, murmurs, or gallops ABDOMEN: Abdomen soft, non-tender, BS normal, No masses or organomegaly EXTREMITIES: Swollen LE b/l BP 152/78 Pulse 84 Temp (Src) 98.4 (Oral) Resp 16 Ht 5' 10 (1.78m) Wt 176 lb 11.2 oz (80.2kg) SpO2 93% BMI 25.35 kg/(m2). O2 Therapy: Nasal Cannula, Liters: 2 DATA: Diagnostic tests reviewed for today's visit: Most recent labs and imaging results. Impression/Recommendations GARRET on CKD - Creatinine baseline is around 2 to 2.4 - GARRET at 2.47 - On IV fluids right now - Has been on keflex and now switched to ceftriaxone - Denies diarrheal illness, or reduced PO intake - Most likely AIN due to keflex, CKD due to uncontrolled DM, pre renal component with lasix and metalazone . HbA1c at 10.2 UTI - On rocephin, denies all symptoms Anemia of chronic disease - Iron studies wnl - In the setting of CKD, DM and HTN, has been following up with Heme-onc Hyperphosphatemia - Will start phoslo 1 tab TID SIGNATURE: Donavan Comer MD PATIENT NAME: Mauri Quinones DATE: March 24, 2019 TIME: 10:09 AM PAGER: [id number] [facility] CONSULT HNO ID: [id number] Author: Kiera Gonzalez Service: Endocrinology Author Type: Physician Type: Consults Filed: 03/24/2019 9:52 AM Note Text: I have reviewed the patient's medical record in detail. Consult note dictated. See new insulin orders. Kiera Gonzalez MD [facility] Comprehensive Panelon 2018 ALP [Catalytic activity/Vol] 140 U/L High 45-117 [facility] Comment on above: Performed By: #### P 14 #### [address] [address] Bilirubin [Mass/Vol] 0.1 mg/dL Low 0.2-1.0 [facility] Comment on above: Performed By: #### P 14 #### [address] [address] Protein [Mass/Vol] 6.3 g/dL Low 6.4-8.2 [facility] Comment on above: Performed By: #### P 14 #### [address] [address] AST [Catalytic activity/Vol] 18 U/L Normal 15-37 [facility] Comment on above: Performed By: #### P 14 #### [address] [address] ALT [Catalytic activity/Vol] 34 U/L Normal 12-78 [facility] Comment on above: Performed By: #### P 14 #### [facility] [address] [place], [place] [address] Creatinine [Mass/Vol] 2.47 mg/dL High 0.67-1.17 [facility] Comment on above: Performed By: #### P 14 #### [facility] [address] [place], [place] [address] Albumin [Mass/Vol] 1.5 g/dL Low 3.4-5.0 [facility] Comment on above: Performed By: #### P 14 #### [facility] [address] [place], [place] [address] Anion gap [Moles/Vol] 12 mmol/L Normal 8-16 [facility] Comment on above: Performed By: #### P 14 #### [facility] [address] [place], [place] [address] Calcium [Mass/Vol] 8.7 mg/dL Normal 8.5-10.1 [facility] Comment on above: Performed By: #### P 14 #### [facility] [address] [place], [place] [address] CO2 [Moles/Vol] 21 mmol/L Normal 21-32 [facility] Comment on above: Performed By: #### P 14 #### [facility] [address] [place], [place] [address] Glucose [Mass/Vol] 200 mg/dL High 70-99 [facility] Comment on above: Performed By: #### P 14 #### [facility] [address] [place], [place] [address] Urea nitrogen [Mass/Vol] 83 mg/dL High 7-18 [facility] Comment on above: Performed By: #### P 14 #### [facility] [address] [place], [place] [address] Chloride [Moles/Vol] 103 mmol/L Normal 98-107 [facility] Comment on above: Performed By: #### P 14 #### [facility] [address] [place], [place] [address] Potassium [Moles/Vol] 5.1 mmol/L Normal 3.5-5.1 [facility] Comment on above: Performed By: #### P 14 #### [facility] [address] [place] [address] Sodium [Moles/Vol] 131 mmol/L Low 136-145 [facility] Comment on above: Performed By: #### P 14 #### [facility] [address] [place] [id number] Cult Urineon 03-24-2019 Cult Urine Test performed at [facility] Culture will be worked up per physician request. ORGANISM: *Enterococcus faecalis (ID: 1) 5,000-<10,000 CFU/ml The results of ampicillin predict susceptibility to amoxicillin, amoxicillin-clavulanate, ampicillin-sulbactam and piperacillin-tazobactam. Cephalosporins, aminoglycosides (except for high-level resistance screening), clindamycin, and SXT may appear active in vitro, but are not effective clinically. The results of ampicillin predict susceptibility to amoxicillin, amoxicillin-clavulanate, ampicillin-sulbactam and piperacillin-tazobactam. Cephalosporins, aminoglycosides (except for high-level resistance screening), clindamycin, and SXT may appear active in vitro, but are not effective clinically. Normal [facility] Comment on above: Performed By: #### G FR #### [facility] [address] [place] [address] ED NOTEon 03-24-2019 ED NOTE HNO ID: [id number] Author: Sydnee MarquezRn) BISMARK Priest Service: Emergency Medicine Author Type: Registered Nurse Type: ED Notes Filed: 03/24/2019 12:04 AM Note Text: Pt when sleeping de-sat to 80% on RA. PAC Notified. Pt placed on 2 L NC and woke up by RN and sat improved. Normal [facility] HISTORY PHYSICALon 9 HISTORY PHYSICAL HNO ID: [id number] Author: Vandana Steiner Service: Hospital Medicine Author Type: Nurse Practitioner Type: HANDP Filed: 03/24/2019 9:11 AM Note Text: -- Attestation signed by Jose Marcial at 03/24/2019 4:41 PM Patient seen and evaluated independently of INLAYER SILVER. Agree with A/P as below. This is a 63 y/o male with history of Ankylosing Spondylitis presents with worsening of neck pain. Was recently admitted at [facility] with reportedly negative imaging studies for acute findings and subsequently discharged. There is also concern for some slurring of speech and confusion but appears resolved currently. On exam he has very limited range of motion of his cervical spine. He otherwise appears comfortable. No focal neurologic deficits are present. He is noted to have a UTI for which he was started on antibiotics. Will continue antibiotics, obtain records (cervical spine imaging) from [facility].. Request nephrology consult for worsening kidney function. Request PT/OT consult. -- INTERNAL MEDICINE HANDP EXAMINATION SERVICE DATE: 03/24/2019 SERVICE TIME: 0930 PRIMARY CARE PHYSICIAN: Aditya Davis PA-C Subjective CHIEF COMPLAINT: Bilateral neck/shoulder pain HISTORY OF PRESENT ILLNESS: Mr. Quinones is a 63 year old male with PMH of right hip and right knee replacement, CABG, CAD, DM, NSTEMI, ankylosis spondylosis presents to the ER from home due to bilateral neck and shoulder pain. Patient states approximately 9 days ago he was mowing his grass and grabbed onto a branch that pulled his arms and shoulders back. He states he did not begin to have neck and shoulder pain until approximately 2 days later. Patient has been to [place] [facility] ?2 and was diagnosed with a cervical strain as well as arthritis in the neck. He was put on muscle relaxants and pain medications. He was also diagnosed with a UTI and put on Keflex. Patient was not having any improvement with symptoms and came to [facility] ER. Patient currently is having pain in his neck along with bilateral shoulders. He does have tenderness with palpation in bilateral shoulders and neck. Per patient, he has been more tired and lethargic. He always has trouble walking but it seems more severe at this time. Patient denies any slurred speech, however, states she noticed some slurred speech. On exam, no slurred speech or facial droop noted. He does have chronic right-sided weakness due to right hip and knee replacement. He is able to move all extremities. He denies any numbness or tingling in any of his extremities. He denies any changes in sensation in any of his extremities. He denies any symptoms of a UTI. He denies dysuria, hematuria, urgency or frequency. Patient denies any chest pain, shortness of breath, nausea, vomiting, diarrhea or chills or fevers at home. Patient is a nonsmoker. He denies alcohol or illicit drug use. He is currently alert and oriented ?3. Able to answer all questions appropriately. He does follow all commands appropriately as well. In ER, patient had: Chest x-ray: Negative, CT brain: Negative for anything acute. A1c: 10.4, WBC: 7.18, Hgb: 9.1, hematocrit: 29.2, NA: 131, K: 5.1, BUN: 83, creatinine: 2.47, albumin: 1.5, alkaline phosphatase: 140, Ma.1, Phos: 6.5, VS: 36.9, 84, 16, 152/78, 93% on 2 L. Patient was put on 2 L in the ER due to hypoxia. During transfer patient's oxygen was taken off and RN noticed his oxygen saturation was 84% on room air. Patient was easily placed back on 2 L. He is not in any respiratory distress. He is able to speak in full sentences. In ER, patient was given [place] and Keflex. Currently NIH?0. PAST MEDICAL HISTORY Diagnosis Date - GARRET (acute kidney injury) ([facility]) 03/24/2019 - Ankylosing spondylitis ([facility]) - CAD (coronary artery disease) - Cellulitis - Chronic combined systolic and diastolic CHF (congestive heart failure) ([facility]) 03/24/2019 - CKD (chronic kidney disease) stage 3, GFR 30-59 ml/min ([facility]) 03/24/2019 - Constipation - Diabetes ([facility]) - Gout - High phosphate levels 03/24/2019 - Hx of fracture multiple bones - Hyperkalemia 03/24/2019 - Hypoalbuminemia 03/24/2019 - Hyponatremia 03/24/2019 - Hypoxia 03/24/2019 - NSTEMI (non-ST elevated myocardial infarction) ([facility]) 03/12/2017 [facility] admit - Osteoarthritis PAST SURGICAL HISTORY Procedure [...] Spectrum ortho - TOE SURGERY HX Right - TOTAL HIP REPLACEMENT Right FAMILY HISTORY Problem Relation Age of Onset - Arthritis Mother - Coronary Artery Disease Mother - Diabetes Mother - Heart Mother - Hypertension Mother - Alcohol/Drug Father - Arthritis Father - Heart Father - Hypertension Father Social History Tobacco Use - Smoking status: Never Smoker - Smokeless tobacco: Former User Types: Chew Substance Use Topics - Alcohol use: No Comment: seldom - Drug use: No MEDICATIONS: Medications Prior to Admission: atorvastatin (LIPITOR) 10 mg tablet Take 10 mg by mouth once daily. Disp: Rfl: gabapentin (NEURONTIN) 600 mg tablet Take 1 tablet by mouth once daily for 30 days. Disp: 30 tablet Rfl: 0 insulin detemir U-100 (LEVEMIR FLEXTOUCH U-100 INSULN) 100 unit/mL (3 mL) inpn injection Inject 17 Units subcutaneously daily at bedtime. Disp: Rfl: doxazosin (CARDURA) 4 mg tablet Take 0.5 tablets by mouth twice daily. Disp: Rfl: 11 furosemide (LASIX) 40 mg tablet Take 1 tablet by mouth once daily. (Patient taking differently: Take 60 mg by mouth once daily. ) Disp: Rfl: Taking carvedilol (COREG) 25 mg tablet Take 25 mg by mouth twice daily with meals. Disp: Rfl: Taking metOLAzone (ZAROXOLYN) 2.5 mg tablet Take 2.5 mg by mouth every other day. Disp: Rfl: Not Taking MULTIVITAMIN/IRON/FOLIC ACID (DAILY MULTI ORAL) Take 2 Each by mouth once daily. Disp: Rfl: Taking Tadalafil (CIALIS) 20 mg tab(s) Take 1 tablet by mouth as needed. Disp: 30 tablet Rfl: 5 Taking aspirin, enteric coated (ASPIR-81) 81 mg EC tablet Take 1 tablet by mouth once daily. Disp: 90 tablet Rfl: 3 Not Taking latanoprost (XALATAN) 0.005 % ophthalmic solution Use 1 Drop in both eyes daily at bedtime. into affected eye(s). Disp: Rfl: 0 Taking Promethazine-DM (PHENERGAN-DM) 6.25-15 mg/5 mL syrup Take 5 mL by mouth four times daily as needed. Disp: 120 mL Rfl: 0 benzonatate (TESSALON PERLE) 100 mg capsule Take 1 capsule by mouth three times daily as needed. Disp: 30 capsule Rfl: 0 tamsulosin ER (FLOMAX) 0.4 mg cap Take 0.4 mg by mouth daily at bedtime. Disp: Rfl: mometasone (ELOCON) 0.1 % cream Apply 1 application to affected area once daily. Do not use more than two weeks Disp: 45 g Rfl: 0 pravastatin (PRAVACHOL) 80 mg tablet Take 80 mg by mouth once daily. Disp: Rfl: Taking ALLERGIES Allergen Reactions - Lyrica [Pregabalin] Swelling COMPLETE REVIEW OF SYSTEMS: All other systems reviewed and are negative. Objective PHYSICAL EXAM: Patient Vitals for the past 24 hrs: BP Temp Temp src Pulse Resp SpO2 Height Weight 03/24/19 0825 152/78 36.9 ?C (98.4 ?F) Oral 84 16 93 % ? ? 03/24/19 0400 162/77 36.4 ?C (97.5 ?F) Oral 78 18 95 % ? ? 03/24/19 0046 182/81 37 ?C (98.6 ?F) Oral 71 18 100 % 177.8 cm (5' 10) 80.2 kg (176 lb 11.2 oz) 03/24/19 0045 ? 37 ?C (98.6 ?F) Oral ? 03/23/19 2337 185/84 ? ? 73 14 (!) 94 % ? ? 03/23/192230 170/92 ? ? 75 12 95 % ? ? 03/23/192058 180/78 ? ? 75 15 (!) 94 % ? ? 03/23/19 1950 149/76 ? ? 71 12 97 % ? ? 03/23/19 1839 132/67 37 ?C (98.6 ?F) Oral 67 16 95 % 177.8 cm (5' 10) 81.6 kg (180 lb) Body mass index is 25.35 kg/m?. GENERAL: Alert, no distress, cooperative SKIN: Skin color, texture, turgor normal. No rashes or lesions. OROPHARYNX: Lips, mucosa, and tongue are normal.Teeth and gums, normal. Oropharynx normal. NECK: No jugulovenous distention, No carotid bruits, Carotid pulse normal contour, Supple LUNGS: Lungs clear to auscultation. Good diaphragmatic excursion. CARDIAC: Normal S1 and S2; no rubs, murmurs, or gallops ABDOMEN: Abdomen soft, non-tender, BS normal, No masses or organomegaly EXTREMETIES: Extremities normal, no deformities, edema, clubbing or skin discoloration. Good capillary refill., No ulcers, RUE/RLE 4.5/5 strength - chronic in nature d/t surgeries, no changes in sensation, GIL NEURO: Alert, oriented X 3, Gait normal. Non-focal. Reflexes normal and symmetric. Sensation grossly intact., Cranial nerves II-XII intact PULSES: 2+ radial, 2+ carotid DATA: Diagnostic tests reviewed for today's visit: Most recent labs and imaging results. WBC (thou/cmm) Date Value 03/24/2019 7.18 RBC (mil/cmm) Date Value 03/24/2019 3.03 (L) Hemoglobin (g/dL) Date Value 08/08/2018 10.3 (L) HGB (g/dL) Date Value 03/24/2019 9.1 (L) Hematocrit (%) Date Value 03/24/2019 29.2 (L) MCV (fl) Date Value 03/24/2019 96.4 (H) MCH (pg) Date Value 03/24/2019 30.0 MCHC (%) Date Value 03/24/2019 31.2 (L) RDW-CV (%) Date Value 08/08/2018 14.6 Platelet Count (thou/cmm) Date Value 03/24/2019 348 MPV (fl) Date Value 03/24/2019 9.0 Glucose (mg/dL) Date Value 03/24/2019 200 (H) BUN (mg/dL) Date Value 03/24/2019 83 (H) Creatinine (mg/dL) Date Value 03/24/2019 2.47 (H) Sodium (mEq/L) Date Value 03/24/2019 131 (L) Potassium (mEq/L) Date Value 03/24/2019 5.1 Chloride (mEq/L) Date Value 03/24/2019 103 CO2 (mEq/L) Date Value 03/24/2019 21 Protein, Total (g/dL) Date Value 03/24/2019 6.3 (L) Albumin (g/dL) Date Value 03/24/2019 1.5 (L) Calcium (mg/dL) Date Value 03/24/2019 8.7 Alkaline Phosphatase (U/L) Date Value 03/24/2019 140 (H) Bilirubin, Total (mg/dL) Date Value 03/24/2019 0.1 (L) AST (U/L) Date Value 03/24/2019 18 ALT (U/L) Date Value 03/24/2019 34 URINALYSIS pH, Arterial Date Value Ref Range Status 04/13/2017 7.324 (L) 7.350 - 7.450 Final Specific [place], Ur Date Value Ref Range Status 03/23/2019 1.019 1.005 - 1.030 Final Glucose, Urine Date Value Ref Range Status 03/23/2019 500 (A) Negative mg/dL Final Bilirubin, Urine Date Value Ref Range Status 03/23/2019 NEGATIVE Negative Final Ketones, Urine Date Value Ref Range Status 03/23/2019 NEGATIVE Negative mg/dL Final Hemoglobin/Blood,Ur Date Value Ref Range Status 07/25/2018 Negative Negative Final Protein, Urine Date Value Ref Range Status 03/23/2019 100 (A) Negative mg/dL Final Urobilinogen, Urine Date Value Ref Range Status 03/23/2019 1.0 0.2 - 1.0 EU/dL Final WBC, Urine Date Value Ref Range Status 03/23/2019 >900.0 (H) 0.0 - 5.0 /hpf Final Assessment/Plan Active Problems: Bilateral neck and shoulder pain - Morphine prn, PT/OT, tylenol Uncontrolled type 2 diabetes mellitus (HCC) POA: Yes Assessment AND Plan: c/s Endocrinology for uncontrolled Dm, accu check ac/hs, SSI, c/w home meds GARRET on CKD (acute kidney injury) ([facility]) POA: Yes Assessment AND Plan: c/s Nephrology, IVF, monitor High phosphate levels POA: Yes Assessment AND Plan: monitor Hyponatremia POA: Yes Assessment AND Plan: IVF Arteriosclerotic heart disease (ASHD) POA: Yes Assessment AND Plan: c/w home meds Hypertension, essential POA: Yes Assessment AND Plan: tele, stable, c/w home med Anemia of chronic renal failure, stage 3 (moderate) ([facility]) POA: Yes Assessment AND Plan: c/s Nephrology, monitor Altered mental status POA: Yes Assessment AND Plan: resolved, possibly pain meds/muscle relaxant? UTI (urinary tract infection) POA: Unknown Assessment AND Plan: IV rocephin, IVF, monitor Chronic combined systolic and diastolic CHF (congestive heart failure) ([facility]) POA: Yes Assessment AND Plan: check BNP, monitor, strict I/O, daily weight Hyperkalemia POA: Yes Assessment AND Plan: monitor, resolved, tele Hypoxia POA: Yes Assessment AND Plan: duonebs, oxygen Hypoalbuminemia POA: Yes DVT prophylaxis?heparin, SCDs Discussed with Dr. Marcial Medication and Non-Pharmacologic VTE Prophylaxis/Anticoagulants Anticoagulant AND Antiplatelet Medications (From admission, onward) Start Dose Route Frequency Ordered Stop 03/24/19 0300 heparin 5,000 Units injection (Medical At Risk ) 5,000 Units SUBCUTANEOUS EVERY 12 HOURS 03/24/19 0232 -- 03/24/19 0245 pneumatic compression stockings ([place], [place]) 03/24/19 0245 activity - mobilize patient ([place]) VTE Prophylaxis: VTE prophylaxis appropriate SIGNATURE: Vandana Steiner APRN.CNP PATIENT NAME: Mauri Quinones DATE: March 24, 2019 TIME: 8:54 AM PAGER/CONTACT #: [phone] Normal [facility] Hemogramon 03-24-2019 Erythrocyte distribution width (RBC) [Ratio] 13.5 % Normal 11.6-14.4 [facility] Comment on above: Performed By: #### C BC1 #### [facility] [address] [place], [place] [address] Hematocrit (Bld) [Volume fraction] 29.2 % Low 40.1-51.0 [facility] Comment on above: Performed By: #### C BC1 #### [facility] [address] [place] [address] Hemoglobin (Bld) [Mass/Vol] 9.1 g/dL Low 13.7-17.5 [facility] Comment on above: Performed By: #### C BC1 #### [facility] [address] [place] [address] MCH (RBC) [Entitic mass] 30.0 pg Normal 25.7-32.2 [facility] Comment on above: Performed By: #### C BC1 #### [facility] [address] [place] [address] MCHC (RBC) [Mass/Vol] 31.2 % Low 32.3-36.5 [facility] Comment on above: Performed By: #### C BC1 #### [facility] [address] [place] [address] MCV (RBC) [Entitic vol] 96.4 fL High 83.2-95.6 [facility] Comment on above: Performed By: #### C BC1 #### [facility] [address] [place] [address] Platelet mean volume (Bld) [Entitic vol] 9.0 fL Normal 8.7-12.0 [facility] Comment on above: Performed By: #### C BC1 #### [facility] [address] [place] [address] Platelets (Bld) [#/Vol] 348 thou/cmm Normal 141-365 [facility] Comment on above: Performed By: #### C BC1 #### [facility] [address] [place] [address] RBC (Bld) [#/Vol] 3.03 mil/cmm Low 4.63-6.08 [facility] Comment on above: Performed By: #### C BC1 #### [facility] [address] [place] [address] RDW SD 47.9 fl High 36.1-45.8 [facility] Comment on above: Performed By: #### C BC1 #### [facility] [address] [place], [place] [address] WBC (Bld) [#/Vol] 7.18 thou/cmm Normal 4.23-9.07 [facility] Comment on above: Performed By: #### C BC1 #### [facility] [address] [place], [place] [address] Hepatic Panelon 03-24-2019 ALP [Catalytic activity/Vol] 155 U/L High 45-117 [facility] Comment on above: Performed By: #### P 14 #### [facility] [address] [place], [place] [address] Bilirubin [Mass/Vol] 0.2 mg/dL Normal 0.2-1.0 [facility] Comment on above: Performed By: #### P 14 #### [facility] [address] [place], [place] [address] ALT [Catalytic activity/Vol] 37 U/L Normal 12-78 [facility] Comment on above: Performed By: #### P 14 #### [facility] [address] [place], [place] [address] AST [Catalytic activity/Vol] 23 U/L Normal 15-37 [facility] Comment on above: Performed By: #### P 14 #### [facility] [address] [place], [place] [address] Bilirubin [Mass/Vol] mg/dL Normal 0.00-0.20 [facility] Comment on above: Performed By: #### P 14 #### [facility] [address] [place], [place] [address] Protein [Mass/Vol] 6.9 g/dL Normal 6.4-8.2 [facility] Comment on above: Performed By: #### P 14 #### [facility] [address] [place], [place] [address] Albumin [Mass/Vol] 1.7 g/dL Low 3.4-5.0 [facility] Comment on above: Performed By: #### P 14 #### [facility] [address] [place], [place] [address] Hgb A1con 03-24-2019 HbA1c (Bld) [Mass fraction] 252 mg/dl Normal [facility] Comment on above: Performed By: #### P 14 #### [facility] [address] [place], [place] [address] HbA1c (Bld) [Mass fraction] 10.4 % High 4.2-6.3 [facility] Comment on above: Result Comment: Meth od is National Glycohemoglobin Standardization Program (NGSP) compliant. Performed By: #### P 14 #### [facility] [address] [place], [place] [address] Magnesium Bloodon 03-24-2019 Magnesium [Mass/Vol] 2.0 mg/dL Normal 1.6-2.6 [facility] Comment on above: Performed By: #### P 14 #### [place] [address] Magnesium [Mass/Vol] 2.1 mg/dL Normal 1.6-2.6 [facility] Comment on above: Performed By: #### M AG #### [place] [address] Microalbumin,Randomon 2018 Microalbumin,Random 243.00 mg/dL High 0.20-2.50 [facility] Comment on above: Performed By: #### P 14 #### [place] [address] N-terminal Pro-BNPon 019 Natriuretic peptide B (Bld) [Mass/Vol] 00747 pg/mL Normal [facility] Comment on above: Result Comment: Note new reference range: Normal Reference Range: Patients <75 yrs old <125pg/ml Patients >=75 yrs old <450 pg/ml Performed By: #### P 14 #### [address] [address] NURSING PROGon 03-24-2019 NURSING PROG HNO ID: [id number] Author: Vandana (Rn) BISMARK Stephen Service: ? Author Type: Registered Nurse Type: Nursing Progress Note Filed: 03/24/2019 8:32 AM Note Text: Nursing Progress Note Patient Name: Mauri Quinones Patient Location: [id number] Daily Note:While checking pt vitals at this time, checked pt pulse ox and pt was at 84% RA, placed pt on 2L NC and pt came up to 93%, Sound [employer]ILVER Vandana in room at this time and informed her. This note was completed by: Vandana Stephen RN [facility] NUTRITIONon 03-24-2019 NUTRITION HNO ID: [id number] Author: Maki Sorensen) ALIA Ham Service: Nutrition Therapy Author Type: Registered Dietitian Type: Nutrition Filed: 03/24/2019 12:16 PM Note Text: NUTRITION THERAPY PATIENT EDUCATION SERVICE DATE: 03/24/2019 SERVICE TIME: 11:50 AM TOPIC: Diabetic Education Diagnosis: ADULT: Diabetes-Type 2 Hemoglobin A1C 10.4 03/24/19 EXEMPTION FROM DIET EDUCATION Patient/family refusal of diet education due to receipt of previous instructions. Per patient has had in past at [facility]. Referral (Recommendation): Primary Care Provider MNT Billing: Initial Assess/15 min 1 unit SIGNATURE: MATA Bazan PATIENT NAME: Mauri Quinones DATE: March 24, 2019 TIME: 12:15 PM PAGER: [phone] [facility] PLAN OF CAREon 03-24-2019 PLAN OF CARE HNO ID: [id number] Author: Sylvia Duque (Pharmacist) Service: Pharmacy Author Type: Pharmacist Type: Plan of Care Filed: 03/25/2019 8:23 AM Note Text: MEDICATION HISTORY AND MEDICATION RECONCILIATION Patient Name:Yandel Quinones : 1955 Source of history:Family: Reliability of source: Appears reliable, clearly identified: Medication name, Medication dose, Medication route and Medication frequency and Pharmacy records: [facility] Medication Nonadherence Identified: No barriers noted The above information represents the best possible medication history: Yes Reconciliation completed? Yes All [employer] medications addressed by LIP, Medications intentionally held at admission: lasix (GARRET), gabapentin, norco, sodium polystyrene susp and Discussed with LIP, plans to add aspirin, modify atorvastatin to home dose of 40mg and discontinue benzonatate, tamsulosin, and cyclobenzaprine based on updated medication history Additional comments: *Note cyclobenzaprine was taken for 2 doses however patient's states he had a bad reaction and everything got worse and has had problems since so 5mg TID was filled on 03/20/19 however he only had 2 doses on that . Patient's requests no cyclobenzaprine. Patient Compliance: Good Hgtle-gj-Eoqelbrtn Medication List Adjustments: Medication Regimen Changes Medication Change Reason Atorvastatin 10mg to 40mg Increased dose per Gabapentin 600mg to 300mg Dose decreased per Medications Added Medication Regimen Source/Comments Medications Removed Medication Reason Metolazone 2.5mg QD Per no longer taking Tadalafil 20mg PRN Per no longer taking Benzonatate 100mg PRN Per no longer taking Mometasone cream Per no longer taking Pravastatin 80mg QD Per changed to atorvastatin Promethazine - DM PRN Per no longer taking Tamulosin ER capsule QD Per no longer taking Short-Term Medications: Medication Regimen Indication Duration/Stop Date Cephalexin 500mg BID Filled 03/22/19 for 7 days [place] 5/325mg PRN pain 4 day supply filled 03/22/19 Sodium polystyrene soln 5 day supply filled 03/22/19 Further Clarification Required: Medication Issue Patient is a 30 day readmission: Yes. Description: [facility] discharged 03/22/19 Patient Interested in Bedside Delivery: No Time Spent Reviewing Patient's Medications: 60 minutes Medication History Status (Justify NOT COMPLETED status): COMPLETED Allergies: ALLERGIES Allergen Reactions - Lyrica [Pregabalin] Swelling Preferred Pharmacy: [facility] Current [employer] Medications: Prior to Admission medications as of 03/24/19 1642 Medication Sig Last Dose Taking atorvastatin (LIPITOR) 40 mg tablet Take 40 mg by mouth once daily. Yes cephALEXin (KEFLEX) 500 mg capsule Take 500 mg by mouth twice daily. Yes HYDROcodone-acetaminophen (NORCO) 5-325 mg per tablet Take 1 tablet by mouth every 6 hours as needed. Yes sodium polystyrene sulfonate, with sorbitol, (SPS) 15-20 gram/60 mL susp suspension Take 15 g by mouth once daily. X 5 days (started 03/22/19) Yes gabapentin (NEURONTIN) 600 mg tablet Take 1 tablet by mouth once daily for 30 days. Patient taking differently: Take 300 mg by mouth once daily. Yes insulin detemir U-100 (LEVEMIR FLEXTOUCH U-100 INSULN) 100 unit/mL (3 mL) inpn injection Inject 17 Units subcutaneously daily at bedtime. Yes doxazosin (CARDURA) 4 mg tablet Take 0.5 tablets by mouth twice daily. Yes furosemide (LASIX) 40 mg tablet Take 1 tablet by mouth once daily. Yes carvedilol (COREG) 25 mg tablet Take 25 mg by mouth twice daily with meals. Yes MULTIVITAMIN/IRON/FOLIC ACID (DAILY MULTI ORAL) Take 2 Each by mouth once daily. Yes aspirin, enteric coated (ASPIR-81) 81 mg EC tablet Take 1 tablet by mouth once daily. Yes latanoprost (XALATAN) 0.005 % ophthalmic solution Use 1 Drop in both eyes daily at bedtime. into affected eye(s). Yes SYLVIA DUQUE, PHARMACIST March 24, 2019 4:47 PM Normal [facility] Phosphorus Bloodon 9 Phosphate [Mass/Vol] 6.0 mg/dL High 2.5-4.9 [facility] Comment on above: Performed By: #### P 14 #### [place] [address] Phosphate [Mass/Vol] 6.5 mg/dL High 2.5-4.9 [facility] Comment on above: Performed By: #### P HOS #### [place] [address] THERAPY NTon 03-24-2019 THERAPY NT HNO ID: [id number] Author: Paulette Barrera/Savanna Lion Service: Occupational Therapy Author Type: Occupational Therapist Type: Therapy (PT/OT/Speech/Resp) Filed: 03/24/2019 3:54 PM Note Text: Occupational Therapy Evaluation SERVICE DATE: 03/24/2019 SERVICE TIME: 1520 to 1540 ROOM: [place] [address] Recommended Discharge Disposition: Home Recommended Discharge Disposition Comments: with spouse assist as needed. Anticipated Discharge Needs: Physical Assist at Home Physical Assist at Home for: Laundry;Cleaning;Transport ation;Safety OT Recommendations to Nursing: To Bathroom for ADL?s /and or Toileting;OOB for meals;With assist of 1 person Equipment: Wheeled Walker OT 6 Clicks Score: 22 ASSESSMENT: Patient presents with bilateral neck and shoulder pain, UTI. Requires skilled OT for addressing deficits related to self care, activity tolerance, education for increased independence with ADLs. Patient Disposition at Start of Session: Supine in Bed;Call Emmanuel in Reach;Family Present Patient Disposition at End of Session: Supine in Bed;Call Emmanuel in Reach;Family Present Tolerance Limited By Pain Occupational Therapy Problem List: Safety Deficits;Impaired Self Care;Decreased Activity Tolerance;Education Deficit Patient /Caregiver Goals: Go Home;Care For Self Goals for Plan of Care: Lower Body Bathing with: Modified Independent Lower Body Dressing with: Modified Independent Toilet Hygiene with: Modified Independent Toilet Transfer with: Modified Independent Demonstrate Positive Coping Strategies with: Independent(pain management strategies) Demonstrate Competence With Education with: Verbal Cues Only(safety/judgment with ADLs) Transfer: Bed mobility with modified independence Rehab Potential: Good PLAN: Treatment Frequency (times per week): 5(1-5x/week) Current admission Treatment Interventions: Education;Self Care / Home Management Plan of Care developed with: Patient TREATMENT INTERVENTIONS: Therapy Diagnosis: Reduced mobility-other;Decreased activities of daily living (ADL) Interventions Provided: Evaluation;Self Usp Management (70622) $ Evaluation-Moderate (09050) Billed Units: 1 unit OT Evaluation Moderate Complexity: Occupational Profile - Extended review of patient's medical record completed including patient's physical, cognitive, and psycho-social history (please see current hospital course of evaluation). Occupational Performance - Pt presents with deficits in feeding, grooming, UE bathing/dressing, LE bathing/dressing, functional transfers, functional mobility, decreased safety awareness, decreased insight into deficits Complexity in Clinical Decision Making - The extent of clinical reasoning was moderate, several treatment options present for the patient, need for modification during the evaluation was minimal/moderate, comorbidities affecting occupational performance: ankylosing spondylitis, DM, OA, CAD. Self Usp Management (15321) Treatment Minutes: 8 1 unit Skilled Intervention(s): Education in bed mobility techniques to decrease pain with transfers. Education provided re: log roll technique. Enocuraged patient to attempt, and physical assist provided to initiate task. Patient demonstrates difficulty following through with education, attempts to utilize bilat UE's to pull up into long sitting with LE's over edge of bed. Reinforcement provided, and patient declines to attempt log roll. Education re: reducing strain on bilat UE's by pulling self up into bed. Reports he is unable to roll to R or L despite reports of sleeping on his side at home. Discussed alternatives to bed at home, and pt is able to sleep in recliner chair. Advised that this may be the best option for pain control at home. Instructed in figure-4 technique for lower body dressing at home. Provided opportunity to dof/don socks at edge of bed following figure-4 technique. Total Timed Code Treatment Minutes: 8 Total Treatment Time (minutes): 20 SUBJECTIVE: Current Hospital Course: Chart reviewed; Presented with worsening bilat shoulder and neck pain after an incident while mowing grass a week ago. Initially presented to [place] ED, incidental finding of UTI, started on Abx. PAST MEDICAL HISTORY Diagnosis Date - GARRET (acute kidney injury) ([facility]) 03/24/2019 - Ankylosing spondylitis ([facility]) - CAD (coronary artery disease) - Cellulitis - Chronic combined systolic and diastolic CHF (congestive heart failure) ([facility]) 03/24/2019 - CKD (chronic kidney disease) stage 3, GFR 30-59 ml/min ([facility]) 03/24/2019 - Constipation - Diabetes ([facility]) - Gout - High phosphate levels 03/24/2019 - Hx of fracture multiple bones - Hyperkalemia 03/24/2019 - Hypoalbuminemia 03/24/2019 - Hyponatremia 03/24/2019 - Hypoxia 03/24/2019 - NSTEMI (non-ST elevated myocardial infarction) ([facility]) 03/12/2017 [facility] admit - Osteoarthritis PAST SURGICAL HISTORY Procedure Laterality Date - CORONARY ARTERY BYPASS GRAFT 04/12/2017 x 3 - HIP SURGERY HX Right pin - KNEE ARTHROSCOPY Left x2 - KNEE SURGERY HX Right TKR, right, arthoscopy x3 - PAST SURGICAL HISTORY OF 09/07/2017 08/15/17 fx radius in 2 places; plate and screws.Plate and screws 09/07/17 [facility] - TOE SURGERY HX Right - TOTAL HIP REPLACEMENT Right Reason for Occupational Therapy Consult: UTI, bilat shoulder/neck pain Relevant Past Medical History: CAD, ankylosing spondylitis, gout Patient Report: Patient up in bed upon entry, spouse present. IDx2. Receptive to OT assessment, the UTI doesn't bother me, the shoulder pain does! Reports he usually has a high pain tolerance, and expresses frustration at pain levels this admit. Currently 04/05. Home Environment Patient Lives With: Family( and dtr) Assistance Available: 24 Hour Entry To Home: Stairs;With Rail Number Of Stairs Into Home: 1 Number Of Stairs To Bed/Bath: 0 Laundry: basement- pt can do it Equipment Owned: Wheeled Walker;Cane Prior Functional Level: Within Functional Limits Prior Functional Level Comments: independent, drives, OBJECTIVE: Cognition/Communication Deficits Responsiveness: Alert Follows Commands: 2-step Commands;Cueing Needed Cueing to Follow Commands: Minimum Attention Deficits: Distractible Executive Function Deficits: Judgement;Insight to Deficits;Problem Solving Judgement Deficit: Minimal impairment Insight to Deficits: Minimal impairment Problem Solving Deficit: Minimal impairment CURRENT FUNCTIONAL STATUS: Current Activities of Daily Living Assist Level Feeding Set Up Grooming Set Up Bathing Upper Body Set Up Bathing Lower Body Set Up Dressing Upper Body Set Up Dressing Lower Body Set Up Toileting Set Up Functional Mobility Assist Level Rolling Minimal Assistance(attempted log roll technique) Supine to Sit Contact Guard Assistance Sit to Supine Contact Guard Assistance Scooting Sit to Stand Contact Guard Assistance Stand to Sit Contact Guard Assistance Bed to Chair Toilet/Commode Contact Guard Assistance Functional Mobility Contact Guard Assistance Wheeled Walker Range of Motion: ROM Limitation Comments ROM Limitation Comments: limited bilat shoulders to 90 deg due to pain; distally intact Strength: Strength Limitation Comments Strength Limitation Comments: Bilat shoulders n/t due to pain, grossly intact Balance: Dynamic Standing Dynamic Standing Balance: Stand By Assistance Activity Tolerance: Standing Activity Standing Activity: functional mobility Standing Activity Tolerance (in minutes): 5 Please see discipline specific clinical documentation flowsheet for complete details for this therapy evaluation/treatment. SIGNATURE: SLIM Singh/Farhana PATIENT NAME: Mauri Quinones DATE: March 24, 2019 TIME: 3:47 PM Normal [facility] THERAPY NT HNO ID: [id number] Author: Melvin Duval Service: Physical Therapy Author Type: Physical Therapist Type: Therapy (PT/OT/Speech/Resp) Filed: 03/24/2019 10:11 AM Note Text: Physical Therapy Evaluation SERVICE DATE: 03/24/2019 SERVICE TIME: 0925 to 1000 ROOM: [id number] Recommended Discharge Disposition: Home Recommended Discharge Disposition Comments: Outpatient PT if symptoms persist PT Recommendations to Nursing: Ambulate with device;To bathroom;In halls;With assist of 1 person Device: Wheeled Walker PT 6 Clicks Score: 21 ASSESSMENT : This patient was admitted for intractable neck and shoulder pain and UTI, has the past medical history of ankylosing spondylitis, CAD, DM, OA, R KEMAR, R TKA impacting current functional level. This patient is below his baseline functioning of mobilizing without neck and shoulder pain and will benefit from continued skilled therapy in the hospital for treatment of the following body systems/impairments: musculoskeletal ( ROM, gait, transfers) Patient Disposition at Start of Session: Supine in Bed;Call Emmanuel in Reach Patient Disposition at End of Session: Supine in Bed;Call Emmanuel in Reach Tolerated Full Session Physical Therapy Problem List: Pain;Functional Mobility Impairment;Decreased Range Of Motion Patient /Caregiver Goals: Walk;Go Home Goals for Plan of Care: Able to perform HEP with: Independent(gentle shoulder rolls and retractions, head supported rotati) Transfer supine to/from sit with: Independent Ambulate with: Independent Distance: 150 Device: Wheeled Walker Rehab Potential: Good PLAN: Treatment Frequency (times per week): 3(1-3) Current admission Treatment Interventions: Education;Joint Mobility;Functional Mobility Training(minimal / gentle ROM and shoulder exs) Plan of Care developed with: Patient TREATMENT INTERVENTIONS: Interventions Provided: Evaluation;Therapeutic Exercise (32286) $ Evaluation-Moderate (98135) Billed Units: 1 unit History and examination of body systems see assessment section above. This patient?s clinical presentation is evolving. The patient required a moderate complexity evaluation. Therapeutic Exercise (76451) Treatment Minutes: 8 1 unit Skilled Intervention(s): Instruction in therapeutic exercise including shoulder rolls and scapular retractions. Gentle trunk rotation while maintaining head forward for gentle ROM from below.. Head supported cervical rotation through pain free range. Verbal and tactile cuing provided . Facilitation of muscle control, optimal recruitment and alignment . Total Timed Code Treatment Minutes: 8 Total Treatment Time (minutes): 30 SUBJECTIVE: Current Hospital Course: Chart reviewed; Pt strained neck approximately 1 week prior to admit and is now admited with intractable neck and shoulder pain. Also found to have a UTI. Reason for Physical Therapy Consult : eval Relevant Past Medical History: CAD, ankylosing spondylitis, CHF, gout, R KEMAR,R TKA, Patient Report: Pt willing to participate. Home Environment Patient Lives With: Family( and dtr) Assistance Available: 24 Hour Entry To Home: Stairs;With Rail Number Of Stairs Into Home: 1 Number Of Stairs To Bed/Bath: 0 Laundry: basement- pt can do it Equipment Owned: Wheeled Walker;Cane Prior Functional Level: Within Functional Limits Prior Functional Level Comments: independent, drives, OBJECTIVE: Range of Motion: ROM Limitation Comments ROM Limitation Comments: shoulder FE 150 pain at end range, hip not tested beyond limits of KEMAR precautions(cervical ROM max loss SB and rotation, and extension,) Strength: Strength Limitation Comments Strength Limitation Comments: pain with resisted shoulder flexion CURRENT FUNCTIONAL STATUS: Current Functional Mobility Assist Level Additional Information Rolling Independent Supine to Sit Minimal Assistance Sit to Supine Minimal Assistance Scooting Independent Sit to Stand Supervision Stand to Sit Supervision Bed to Chair Toilet/Commode Gait Stand By Assistance Gait Device: Wheeled Walker Gait Distance (feet): 75 Stairs Curb Step Car Transfer General Gait Deviations: Antalgic gait pattern(R stance) -M: 7: Walk 25 feet or more Please see discipline specific clinical documentation flowsheet for complete details for this therapy evaluation/treatment. SIGNATURE: Melvin Duval PT PATIENT NAME: Mauri Quinones DATE: March 24, 2019 TIME: 9:40 AM Normal [facility] Urea Nitrogen Randomon 03-24 Urea nitrogen [Mass/Vol] 496 mg/dL Normal [facility] Comment on above: Performed By: #### P 14 #### [place] [address] Urinalysis Routineon 019 Bacteria LM.HPF (Urine sed) [#/Area] NONE Normal None [facility] Comment on above: Performed By: #### U RIN2 #### [facility] [address] [place], [place] [address] Ep Cells Urine 1.0 /hpf Normal 0.0-5.0 [facility] Comment on above: Performed By: #### U RIN2 #### [facility] [address] [place] [address] Hyaline Cast 4.7 /lpf High 0.0-1.0 [facility] Comment on above: Performed By: #### U RIN2 #### [facility] [address] [place] [address] RBC LM.HPF (Urine sed) [#/Area] 57.3 /[HPF] High 0.0-5.0 [facility] Comment on above: Performed By: #### U RIN2 #### [facility] [address] [place] [address] WBC LM.HPF (Urine sed) [#/Area] /[HPF] High 0.0-5.0 [facility] Comment on above: Performed By: #### U RIN2 #### [place] [address] Appearance (U) TURBID Normal [facility] Comment on above: Performed By: #### U RIN2 #### [facility] [address] [place] [address] Bilirubin (U) [Mass/Vol] Negative Normal Negative [facility] Comment on above: Performed By: #### U RIN2 #### [place] [address] Color (U) YELLOW Normal [facility] Comment on above: Performed By: #### U RIN2 #### [place] [address] Glucose Ql (U) 500 mg/dL Abnormal Negative [facility] Comment on above: Performed By: #### U RIN2 #### [place] [address] Hemoglobin,Urine MODERATE Abnormal Negative [facility] Comment on above: Performed By: #### U RIN2 #### [place] [address] Ketone Urine Negative Normal Negative [facility] Comment on above: Performed By: #### U RIN2 #### [place] [address] Leukocytes Esterase LARGE Abnormal Negative [facility] Comment on above: Performed By: #### U RIN2 #### [facility] [address] [place], [place] [address] Nitrites Urine Negative Normal Negative [facility] Comment on above: Performed By: #### U RIN2 #### [facility] [address] [place], [place] [address] pH (U) 5.5 [pH] Normal 5.0-8.0 [facility] Comment on above: Performed By: #### U RIN2 #### [facility] [address] [place] [address] Protein (U) [Mass/Vol] 100 mg/dL Abnormal Negative [facility] Comment on above: Performed By: #### U RIN2 #### [facility] [address] [place] [address] Specific [place], Ur 1.019 Normal 1.005-1.030 [facility] Comment on above: Performed By: #### U RIN2 #### [place] [address] Urobilinogen,Ur 1.0 EU/dL Normal 0.2-1.0 [facility] Comment on above: Performed By: #### U RIN2 #### [address] [address] Urine Protein/Creatinine Rat ioon 03-24-2019 Prot/Creat Ratio 6.00 mg/mg creat High 0.02-0.13 [facility] Comment on above: Performed By: #### P 14 #### [address] [address] Protein Ql (U) 473.4 mg/dL High 0.0-11.9 [facility] Comment on above: Performed By: #### P 14 #### [facility] [address] [place], [place] [address] Creatinine,Urine 78.9 mg/dL Normal [facility] Comment on above: Performed By: #### P 14 #### [address] [address] Vitamin B12on 03-24-2019 Cobalamin (Vitamin B12) [Mass/Vol] 1687 pg/mL High 193-986 [facility] Comment on above: Performed By: #### P 14 #### [facility] [address] [place] [address] Comprehensive Panelon 2018 ALP [Catalytic activity/Vol] 154 U/L High 45-117 [facility] Comment on above: Performed By: #### P 14 #### [facility] [address] [place], [place] [address] Bilirubin [Mass/Vol] 0.2 mg/dL Normal 0.2-1.0 [facility] Comment on above: Performed By: #### P 14 #### [facility] [address] [place], [place] [address] Creatinine [Mass/Vol] 2.46 mg/dL High 0.67-1.17 [facility] Comment on above: Performed By: #### P 14 #### [facility] [address] [place], [place] [address] Protein [Mass/Vol] 6.7 g/dL Normal 6.4-8.2 [facility] Comment on above: Performed By: #### P 14 #### [facility] [address] [place], [place] [address] ALT [Catalytic activity/Vol] 40 U/L Normal 12-78 [facility] Comment on above: Performed By: #### P 14 #### [facility] [address] [place], [place] [address] AST [Catalytic activity/Vol] 27 U/L Normal 15-37 [facility] Comment on above: Performed By: #### P 14 #### [facility] [address] [place], [place] [address] Albumin [Mass/Vol] 1.7 g/dL Low 3.4-5.0 [facility] Comment on above: Performed By: #### P 14 #### [facility] [address] [place], [place] [address] Anion gap [Moles/Vol] 12 mmol/L Normal 8-16 [facility] Comment on above: Performed By: #### P 14 #### [facility] [address] [place], [place] [address] CO2 [Moles/Vol] 23 mmol/L Normal 21-32 [facility] Comment on above: Performed By: #### P 14 #### [facility] [address] [place], [place] [address] Glucose [Mass/Vol] 287 mg/dL High 70-99 [facility] Comment on above: Performed By: #### P 14 #### [facility] [address] [place], [place] [address] Urea nitrogen [Mass/Vol] 81 mg/dL High 7-18 [facility] Comment on above: Performed By: #### P 14 #### [facility] [address] [place], [place] [address] Calcium [Mass/Vol] 8.4 mg/dL Low 8.5-10.1 [facility] Comment on above: Performed By: #### P 14 #### [facility] [address] [place], [place] [address] Chloride [Moles/Vol] 102 mmol/L Normal 98-107 [facility] Comment on above: Performed By: #### P 14 #### [facility] [address] [place], [place] [address] Potassium [Moles/Vol] 4.9 mmol/L Normal 3.5-5.1 [facility] Comment on above: Performed By: #### P 14 #### [facility] [address] [place], [place] [address] Sodium [Moles/Vol] 132 mmol/L Low 136-145 [facility] Comment on above: Performed By: #### P 14 #### [facility] [address] [place], [place] [address] ECU Troponin Ion 03-23-2019 Troponin I.cardiac [Mass/Vol] ng/mL Normal 0.015-0.045 [facility] Comment on above: Performed By: #### E RTRP #### [facility] [address] [place], [place] [address] ED NOTEon 03-23-2019 ED NOTE HNO ID: [id number] Author: Sydnee MarquezRn) BISMARK Priest Service: Emergency Medicine Author Type: Registered Nurse Type: ED Notes Filed: 03/23/2019 8:40 PM Note Text: Pt aware of need for urine sample. Normal [facility] ED NOTE HNO ID: [id number] Author: Sydnee MarquezRn) BISMARK Priest Service: Emergency Medicine Author Type: Registered Nurse Type: ED Notes Filed: 03/23/2019 8:40 PM Note Text: CT and XR notified that patient is ready for imaging. Normal [facility] ED NOTE HNO ID: [id number] Author: Sydnee Guzman) BISMARK Priest Service: Emergency Medicine Author Type: Registered Nurse Type: ED Notes Filed: 03/23/2019 7:56 PM Note Text: Pt reports having been seen multiple times over the last week, today having generalized weakness and fatigue. Pt also reports bilateral neck pain. Pt has no neuro deficits at this time. Pt does have bilateral lower extremity pitting edema. Normal [facility] ED PROV NOTEon 03-23-2019 ED PROV NOTE HNO ID: [id number] Author: Torri Trejo DO Service: Emergency Medicine Author Type: Physician Type: ED Provider Notes Filed: 03/26/2019 3:28 PM Note Text: ED Provider Note Patient Name: Mauri Quinones SERVICE DATE: 03/23/19 History Patient presents with: Neck Pain: Per family, pt was on a riding mower a week ago this past Sunday. He lifted his arms to move tree branches and hurt his arms. Went to [place] ER this past , dx with cervical starin, sent home with muscle relaxers. Went back to [place] on Sunday (bc he fell out of his recliner), had an MRI and was admitted overnight. Discharged yesterday. Family states he is lethargic now, cannot walk well. Was told his potassium was high at [place]. HPI 63y M presents c/o bilateral neck pain. is with him and reports slurred speech, lethargy and BLE edema. 9d ago, he sustained a neck injury where his arms were yanked backwards while he was trying to move a branch on riding mower. Pt initially did not think he needed to come in, but the pain persisted, so he went to [place] 4d ago. He was initially diagnosed with a neck sprain, given a dose of Norflex and sent home with an Rx for Flexeril. After taking the Flexeril as directed, pt was sleeping in a recliner and slid out of it. Pt's was unable to get him up off the floor (pt has Hx of right hip and knee replacement). They called EMS and went back to [place]. Pt was admitted and neck CT performed showing possible fracture. Subsequent C-spine MRI however, was negative for fracture. Head CT at that time was also negative. Pt had decrease kidney function at that time and US was done showing debris within the bladder. UA showed leukocytes without bacteria. Pt was discharged yesterday with Rx for Keflex with which he has been compliant. states more lethargic and confused than normal and b/l ankles started swelling, so they decided to come here rather than go back to [place]. reports that when he was in the hospital he was misidentifying objects and said he wanted to be with his relatives. thinks he may have been slurring his speech some as well. Pt currently denies SI/HI. 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 Recent decrease in lasix per doctor's orders from 60mg to 40mg. PAST MEDICAL HISTORY Diagnosis Date - Ankylosing spondylitis ([facility]) - CAD (coronary artery disease) - Cellulitis - Constipation - Diabetes ([facility]) - Gout - Hx of fracture multiple bones - NSTEMI (non-ST elevated myocardial infarction) ([facility]) 03/12/2017 [facility] admit - Osteoarthritis PAST SURGICAL HISTORY Procedure Laterality Date - CORONARY ARTERY BYPASS GRAFT 04/12/2017 x 3 - HIP SURGERY HX Right pin - KNEE ARTHROSCOPY Left x2 - KNEE SURGERY HX Right TKR, right, arthoscopy x3 - PAST SURGICAL HISTORY OF 09/07/2017 08/15/17 fx radius in 2 places; plate and screws.Plate and screws 09/07/17 [facility] - TOE SURGERY HX Right - TOTAL HIP REPLACEMENT Right FAMILY HISTORY Problem Relation Age of Onset - Arthritis Mother - Coronary Artery Disease Mother - Diabetes Mother - Heart Mother - Hypertension Mother - Alcohol/Drug Father - Arthritis Father - Heart Father - Hypertension Father Social History Tobacco Use - Smoking status: Never Smoker - Smokeless tobacco: Former User Types: Chew Substance and Sexual Activity - Alcohol use: No Comment: seldom - Drug use: No - Sexual activity: Yes Partners: Female ALLERGIES Allergen Reactions - Lyrica [Pregabalin] Swelling Review of Systems Constitutional: See hpi HENT: Negative. Eyes: Negative. Respiratory: Negative. Cardiovascular: Negative. Gastrointestinal: Negative. Genitourinary: Negative. Musculoskeletal: See hpi Skin: Negative. Neurological: See hpi Hematological: Negative. Physical Exam BP 185/84 Pulse 73 Temp (Src) 98.6 (Oral) Resp 14 Ht 5' 10 (1.78m) Wt 180 lb (81.6kg) SpO2 94% BMI 25.83 kg/(m2). O2 Therapy: Room Air Physical Exam Constitutional: He is oriented to person, place, and time. He appears well-developed and well-nourished. He is active. Non-toxic appearance. He does not have a sickly appearance. He does not appear ill. No distress. HENT: Head: Normocephalic and atraumatic. Right Ear: External ear normal. Left Ear: External ear normal. Eyes: Pupils are equal, round, and reactive to light. Conjunctivae, EOM and lids are normal. Right eye exhibits no discharge. Left eye exhibits no discharge. Right conjunctiva is not injected. Left conjunctiva is not injected. No scleral icterus. Probable cataracts Cardiovascular: Normal rate, regular rhythm and normal heart sounds. Exam reveals no gallop and no friction rub. No murmur heard. Pulses: Dorsalis pedis pulses are 2+ on the right side, and 2+ on the left side. Posterior tibial pulses are 2+ on the right side, and 2+ on the left side. 2+ pitting edema bilateral feet and ankles Pulses by doppler, unable to palpate 2/2 edema Pulmonary/Chest: Effort normal and breath sounds normal. No accessory muscle usage. No respiratory distress. He has no wheezes. He has no rhonchi. He has no rales. Abdominal: Normal appearance. Musculoskeletal: No spinous process tenderness to palpation. There is cervical spine paraspinous muscle tenderness to palpation bilaterally. Bilateral upper and lower extremity sensation intact bilaterally. Cap refill is less than 2 seconds. Radial, dorsalis pedis, posterior tibialis pulses are 2+ and symmetric. Patient moves all extremities. Neurological: He is alert and oriented to person, place, and time. GCS eye subscore is 4. GCS verbal subscore is 5. GCS motor subscore is 6. UE tremor. Per pt, chronic but intermittent. LLE with some drift NIHSS=1 Speech is not slurred on my exam. Skin: Skin is warm, dry and intact. Capillary refill takes less than 2 seconds. No abrasion, no burn, no ecchymosis, no laceration, no lesion and no rash noted. No cyanosis or erythema. Nails show no clubbing. Psychiatric: He has a normal mood and affect. His speech is normal and behavior is normal. Nursing note and vitals reviewed. Diagnostic Testing ED Labs Ordered and Reviewed COMPREHENSIVE METABOLIC PANEL (AK,AV,EU,FV,HL,EN,MM,SP) - Abnormal; Notable for the following components: Result Value Ref Range Sodium 132 (*) 136 - 145 mEq/L Glucose 287 (*) 70 - 99 mg/dL BUN 81 (*) 7 - 18 mg/dL Creatinine 2.46 (*) 0.67 - 1.17 mg/dL Calcium 8.4 (*) 8.5 - 10.1 mg/dL Albumin 1.7 (*) 3.4 - 5.0 g/dL Alkaline Phosphatase 154 (*) 45 - 117 U/L All other components within normal limits CBC + AUTO DIFF (AK,AV,EU,FV,HL,EN,MM,SP) - Abnormal; Notable for the following components: RBC 3.44 (*) 4.63 - 6.08 mil/cmm HGB 10.2 (*) 13.7 - 17.5 g/dL Hematocrit 32.2 (*) 40.1 - 51.0 % MCHC 31.7 (*) 32.3 - 36.5 % RDW-SD 46.5 (*) 36.1 - 45.8 fl Abs. Lymph 0.68 (*) 0.84 - 2.85 thou/cmm Abs. Bucks 1.37 (*) 0.30 - 0.82 thou/cmm All other components within normal limits URINALYSIS WITH MICROSCOPIC (AK,AV,EU,FV,HL,EN,MM,SP) - Abnormal; Notable for the following components: Glucose, Urine 500 (*) Negative mg/dL Hemoglobin, Urine MODERATE (*) Negative Protein, Urine 100 (*) Negative mg/dL Leukocytes Esterase LARGE (*) Negative RBC, Urine 57.3 (*) 0.0 - 5.0 /hpf WBC, Urine >900.0 (*) 0.0 - 5.0 /hpf Hyaline Cast 4.7 (*) 0.0 - 1.0 /lpf All other components within normal limits MDRD GFR ECU TROPONIN I (AK ED) URINE CULTURE (AK,AV,EU,FV,HL,EN,MM,SP) Procedures ED Course / Clinical Impression ED Course as of Mar 26 1526 Others' Documentation [facility] Mar 23, 2019 2210 Clean catch urine sample obtained and sent to lab [BP] ED Course User Index [BP] Idalia Lopes (Pa) CHELSI Etienne Clinical Impressions as of Mar 26 1526 Neck pain Malaise and fatigue MDM / Disposition / Plan MDM 63y M presents c/o bilateral neck pain. is with him and reports slurred speech, lethargy and BLE edema. 9d ago, he sustained a neck injury where his arms were yanked backwards while he was trying to move a branch on riding mower. Pt initially did not think he needed to come in, but the pain persisted, so he went to [place] 4d ago. He was initially diagnosed with a neck sprain, given a dose of Norflex and sent home with an Rx for Flexeril. After taking the Flexeril as directed, pt was sleeping in a recliner and slid out of it. Pt's was unable to get him up off the floor (pt has Hx of right hip and knee replacement). They called EMS and went back to [place]. Pt was admitted and neck CT performed showing possible fracture. Subsequent C-spine MRI however, was negative for fracture. Head CT at that time was also negative. Pt had decrease kidney function at that time and US was done showing debris within the bladder. UA showed leukocytes without bacteria. Pt was discharged yesterday with Rx for Keflex with which he has been compliant. states more lethargic and confused than normal and b/l ankles started swelling, so they decided to come here rather than go back to [place]. reports that when he was in the hospital he was misidentifying objects and said he wanted to be with his relatives. thinks he may have been slurring his speech some as well. Pt currently denies SI/HI. 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 Recent decrease in lasix per doctor's orders from 60mg to 40mg. physical exam is remarkable for bilateral lower extremity edema of the feet and ankles. NIH stroke scale equals 1 for left lower extremity drift. Head CT today, which was negative. Labs are also remarkable for decreased kidney function. However, this is unchanged from labs done at [place]. Potassium was is within normal limits at 4.9 today. Hemoglobin has increased from labs from labs done at [place]. EKG as interpreted by Dr. Torri Trejo does not show T-wave peaking. Sodium is within normal limits after correction for hyperglycemia. Troponin and chest x-ray are normal. Urinalysis is indicative of urinary tract infection. Patient has been on Keflex for this, but has only had a few doses. Patient does not have a leukocytosis and vital signs are stable. Urine culture sent. Patient given normal dose [place] and Keflex while in the ED. Patient admitted to [facility] under Dr. Myers for further workup fatigue, inability to ambulate, UTI, confusion. Possible etiologies for confusion, fatigue or side effects of Flexeril, UTI. Lower extremity edema is likely a combination of lack of activity as well as recent decrease in Lasix. Patient admitted in stable condition. After patient was accepted to the hospitalist's service, Sydnee Priest RN informed me that patient had a decrease in oxygen saturation after falling asleep. As soon as the patient woke up, he returned to normal saturation. Patient placed on 2 L nasal cannula oxygen and we will continue to monitor. RN will also inform the floor nurse of this when she gives report once patient gets a bed. Patient and express understanding and are amenable to plan. The patient was ADMITTED TO: Regular nursing floor. Condition at time of disposition: stable SIGNATURE: PASTOR Mackey) CHELSI Etienne 03/24/19 0009 Idalia Tong) CHELSI Etienne 03/24/19 0043 Attending Note I evaluated the patient and personally participated in the rodriguez components. I personally saw and examined the patient. I reviewed the resident's note. I agree with the resident's assessment and plan unless otherwise noted. I was present for the rodriguez portions of the procedure. I was present and personally supervised the rodriguez portions of the procedure. HPI:slurred speech, lethargy and BLE edema for one week, slipped off hose maker 9 days ago with hands above head, evaluated with negative ct nd MRI, noticed general decline since then, no chest pain or sob, currently on keflex for UTI Gen NAD Calm verbal Neuro NCAT PERRLA no focal neuro deficits GIL CVS RRR Pulm CTAB Abd Soft NT ND +BS Ext no c/e Torri Trejo, DO [place] Florencia Neil, 03/26/19 1528 Normal [facility] ED Triage Noteon 03-23-2019 ED Triage Note HNO ID: [id number] Author: Floyd (CHELSI Higgins Service: ? Author Type: Physician Strategic Partnership Manager Type: ED Triage Notes Filed: 03/23/2019 6:44 PM Note Text: ED INTAKE NOTE Patient Name: Mauri Quinones Service Date: 03/23/19 BRIEF HPI: Per patient's family, patient was on a riding lawnmower a week ago this past Sunday when he lifted his arms onto the tree branch and axillae the gas instead of the brake and it wrenched his arms backwards. Patient states that he's been having neck pain primarily on the right side since this incident. Patient also has a history of ankylosing spondylitis. They state they went to the [place] ER 4 days ago and diagnosed with a cervical strain and sent home with muscle relaxers. They state they returned the following day to the same ER where he was admitted overnight for an MRI, diagnosis arthritis in the neck and discharged home yesterday. Patient's family states that they were told while the patient was admitted that his potassium was high but they were never given her number, and the patient was given Kayexalate to take after his discharge. They state he has had issues of high potassium in the past that caused cardiac issues are concerned because they think he is acting strange and lethargic and has been telling him things such as he sees things moving on the wong. Patient denies any chest pain or head injury BRIEF EXAM: Awake and Alert RRR CTAB AANDO x 3 TTP of the right cervical paraspinal and right trapezius INTAKE WORKUP: Bloodwork: CBC CMP EKG SIGNATURE: Floyd Reid PA-C Normal [facility] Hemogram/Diffon 03-23-2019 Abs Immature Grans 0.04 thou/cmm Normal 0.00-0.05 [facility] Comment on above: Performed By: #### C BCD1 #### [facility] [address] [place] [address] Abs Neut (ANC) 4.13 thou/cmm Normal 1.78-5.38 [facility] Comment on above: Performed By: #### C BCD1 #### [facility] [address] [place] [address] Abs. Baso 0.03 thou/cmm Normal 0.01-0.08 [facility] Comment on above: Result Comment: Smea r scanned; tech agrees with automated differential Performed By: #### C BCD1 #### [facility] [address] [place] [address] Abs. Bucks 1.37 thou/cmm High 0.30-0.82 [facility] Comment on above: Performed By: #### C BCD1 #### [facility] [address] [place] [address] Basophils/100 WBC (Bld) 0.5 % Normal [facility] Comment on above: Performed By: #### C BCD1 #### [facility] [address] [place] [address] Eosinophils (Bld) [#/Vol] 0.15 thou/cmm Normal 0.04-0.54 [facility] Comment on above: Performed By: #### C BCD1 #### [place] [address] Eosinophils/100 WBC (Bld) 2.3 % Normal [facility] Comment on above: Performed By: #### C BCD1 #### [facility] [address] [place] [address] Immature Grans 0.60 % Normal [facility] Comment on above: Performed By: #### C BCD1 #### [facility] [address] [place] [address] Lymphocytes (Bld) [#/Vol] 0.68 thou/cmm Low 0.84-2.85 [facility] Comment on above: Performed By: #### C BCD1 #### [facility] [address] [place], [place] [address] Lymphocytes/100 WBC (Bld) 10.6 % Normal [facility] Comment on above: Performed By: #### C BCD1 #### [facility] [address] [place], [place] [address] Monocytes/100 WBC (Bld) 21.4 % Normal [facility] Comment on above: Performed By: #### C BCD1 #### [facility] [address] [place] [address] Seg Neutrophil 64.6 % Normal [facility] Comment on above: Performed By: #### C BCD1 #### [facility] [address] [place] [address] Erythrocyte distribution width (RBC) [Ratio] 13.6 % Normal 11.6-14.4 [facility] Comment on above: Performed By: #### C BCD1 #### [facility] [address] [place] [address] Hematocrit (Bld) [Volume fraction] 32.2 % Low 40.1-51.0 [facility] Comment on above: Performed By: #### C BCD1 #### [facility] [address] [place] [address] Hemoglobin (Bld) [Mass/Vol] 10.2 g/dL Low 13.7-17.5 [facility] Comment on above: Performed By: #### C BCD1 #### [facility] [address] [place] [address] MCH (RBC) [Entitic mass] 29.7 pg Normal 25.7-32.2 [facility] Comment on above: Performed By: #### C BCD1 #### [facility] [address] [place] [address] MCHC (RBC) [Mass/Vol] 31.7 % Low 32.3-36.5 [facility] Comment on above: Performed By: #### C BCD1 #### [facility] [address] [place] [address] MCV (RBC) [Entitic vol] 93.6 fL Normal 83.2-95.6 [facility] Comment on above: Performed By: #### C BCD1 #### [facility] [address] [place], [place] [address] Platelet mean volume (Bld) [Entitic vol] 9.0 fL Normal 8.7-12.0 [facility] Comment on above: Performed By: #### C BCD1 #### [facility] [address] [place], [place] [address] Platelets (Bld) [#/Vol] 320 thou/cmm Normal 141-365 [facility] Comment on above: Performed By: #### C BCD1 #### [facility] [address] [place], [place] [address] RBC (Bld) [#/Vol] 3.44 mil/cmm Low 4.63-6.08 [facility] Comment on above: Performed By: #### C BCD1 #### [facility] [address] [place], [place] [address] RDW SD 46.5 fl High 36.1-45.8 [facility] Comment on above: Performed By: #### C BCD1 #### [facility] [address] [place], [place] [address] WBC (Bld) [#/Vol] 6.40 thou/cmm Normal 4.23-9.07 [facility] Comment on above: Performed By: #### C BCD1 #### [facility] [address] [place], [place] [address] BMPon 07-22-2018 Anion gap 3 molar conc 8 mmol/L Normal 5-16 [facility] Comment on above: Order Comment: Campu s: MIs This Patient Going To Surgery? YSurgery Date: 02/20/18 Performed By: #### L 500.82943, L500.50568, L500.76768 ####[facility] JZLALWQWFO[address] [place], [place] [address]Ni# [phone] Calcium mass conc 7.4 mg/dL Low 8.5-10.1 [facility] Comment on above: Order Comment: Campu s: MIs This Patient Going To Surgery? YSurgery Date: 02/20/18 Performed By: #### L 500.73341, L500.17169, L500.22277 ####[facility] PIHQSPCBFB6975 [place], [place] [address]If# [phone] Chloride molar conc 94 mmol/L Low 98-107 [facility] Comment on above: Order Comment: Campu s: MIs This Patient Going To Surgery? YSurgery Date: 02/20/18 Performed By: #### L 500.27556, L500.33377, L500.98277 ####[facility] FOBEPCNQLR7664 [place], [place] [address]My# [phone] CO2 molar conc 28 mmol/L Normal 21-32 [facility] Comment on above: Order Comment: Campu s: MIs This Patient Going To Surgery? YSurgery Date: 02/20/18 Performed By: #### L 500.01227, L500.55827, L500.84433 ####[facility] CGLCTEPEXW4357 [place], [place] [address]Ua# [phone] Creatinine mass conc 3.010 mg/dL High 0.670-1.170 [facility] Comment on above: Order Comment: Campu s: MIs This Patient Going To Surgery? YSurgery Date: 02/20/18 Result Comment: Macrina ents receiving either N-Acetylcysteine (NAC) orMetamizole prior to venipuncture, may have falsely depressedresults. Performed By: #### L 500.36760, L500.50466, L500.42763 ####[facility] NOEGPEECYO[address] [place], [place] [address]Ls# [phone] Glucose mass conc 74 mg/dL Normal 70-100 [facility] Comment on above: Order Comment: Campu s: MIs This Patient Going To Surgery? YSurgery Date: 02/20/18 Result Comment: 70-1 00- Normal Fasting; 100-125 Impaired Fasting; greaterthan 126 on more than one result- Diabetes. ADA guidelines.Results may be falsely elevated after the administration ofSulfapyridine.Results may be falsely depressed after the administration ofSulfasalazine. Performed By: #### L 500.32825, L500.94120, L500.55172 ####[facility] WISIXSRHFI[address] [place], [place] [address]Wp# [phone] Potassium molar conc 4.8 mmol/L Normal 3.5-5.1 [facility] Comment on above: Order Comment: Campu s: MIs This Patient Going To Surgery? YSurgery Date: 02/20/18 Performed By: #### L 500.27831, L500.37872, L500.36151 ####[facility] ZDUCXUCQMV5165 [place], [place] [address]Ub# [phone] Sodium molar conc 130 mmol/L Low 136-145 [facility] Comment on above: Order Comment: Campu s: MIs This Patient Going To Surgery? YSurgery Date: 02/20/18 Performed By: #### L 500.23493, L500.87522, L500.54691 ####[facility] [id number] [place], [place] [address]Wk# [phone] Urea nitrogen mass conc 68 mg/dL High 7-26 [facility] Comment on above: Order Comment: Campu s: MIs This Patient Going To Surgery? YSurgery Date: 02/20/18 Performed By: #### L 500.05632, L500.53938, L500.77174 ####[facility] FDEFYJXGBF4[address] [place], [place] [address]In# [phone] Urea nitrogen/Creatinine mass ratio 22 mg/mg Normal 15-24 [facility] Comment on above: Order Comment: Campu s: MIs This Patient Going To Surgery? YSurgery Date: 02/20/18 Performed By: #### L 500.85670, L500.35314, L500.03666 ####[facility] XKDBRGMMRY6217 [place], [place] [address]Ne# [phone] GFR ESTon 07-22-2018 IF AMER 26 ML/MIN Normal [facility] Comment on above: Order Comment: Campu s: MIs This Patient Going To Surgery? YSurgery Date: 02/20/18 Performed By: #### L 500.29109, L500.06162, L500.98807 ####[facility] DHNTPNMOEB4325 [place], [place] [address]Vi# [phone] IF non-AFR AMER 21 ML/MIN Normal [facility] Comment on above: Order Comment: Kahlil s: MIs This Patient Going To Surgery? YSurgery Date: 02/20/18 Performed By: #### L 500.73281, L500.16031, L500.24430 ####[facility] WECJAHIFGI[address] [place], [place] [address]Tx# [phone] GLUCOSE METERon 07-22-2018 Glucose mass conc 125 mg/dL Normal 85-125 [facility] Glucose mass conc 84 mg/dL Low 85-125 [facility] Glucose mass conc 85 mg/dL Normal 85-125 [facility] PBNP TESTon 07-22-2018 Natriuretic peptide B mass conc (Bld) 35352 pg/mL High 0-900 [facility] Comment on above: Order Comment: Kahlil s: MIs This Patient Going To Surgery? YSurgery Date: 02/20/18 Result Comment: NT-p roBNP results of less than 300 pg/ml effectively rulesout acute congestive heart failure with 99% negativepredictive value. Performed By: #### L 500.71111, L500.93306, L500.51696 ####[facility] BFTHVXNUYQ[address]137 [place], [place] [address]Bg# [phone] PROG IMSon 07-22-2018 Protein mass conc [facility] Patient Name: VALENTE QUINONES [facility] Date of : [address] [place] [address] Unit Number: [id number] Number: [id number] Note-Hospitalist Patient Status: ADM INAttending Doctor: Jensen Peguero DOService Date: 07/22/18 1431Chief ComplaintChief ComplaintRight hip painSubjectiveS: (2 ROS minimum)Remained asymptomatic with no chest pain or shortness of breath.Objective (ROS)Nursing VitalsVital Signs (Last)ResultDate TimePulse Rh6753 0815B/P143/6211 6639Feua81.011 7699Pbszq0528 4022Mzaf9144/26 0815O2 DeliveryNASAL QGDEZPQ12/22 0440O2 Flow Hzbn582/22 0440General AppearanceComfortablePhysi sabrina ExamPhysical Examination NotesNeurological / Psychiatric Alert, Orientation U3XTYKH EOMI, PERRLNeck No JVD, No Enlarged ThyroidRespiratory Normal Breathing Effort, Clear LungsCardiovascular Heart RRR, No M / R / GGastrointestinal Normal Bowel Sounds, Non TenderMusculoskeletal No EdemaSkin No Rash, Warm / DryDiagnostic Data:Medications CurrentSig/SchStart timeLastMedicationDoseRout eStop TimeStatusAdminAl Hydrox/Mg Hydrox/30 PKZ1EUYB PRN109/16 1100ACSimethiconePO(MAALOX (ALAMAG)PLUSORAL LIQ)Jfhqomp300 PRFBHAEK95/22 9062BE87/26(ECOTRIN TAB.EC)TB9363Ofziirezlqniz ne HCl25 DYI9WJEF PRN109/16 1100AC(BENADRYL CAP)PODocusate Tvgpomo495 MGQ12H@21109/16 8606CF33/26(SURFAK CAP)JG6398Dgfusvndr Mesylate2 MGBID109/16 8020YY19/26(CARDURA TAB)WP4055Fvilrefhqt Ygdcdf56 VSA15M46/22 8813LQ28/26(LOVENOX D.SYR)WP6348Owwwohifgi48 MGBID.30AC109/21 1128WX54(LASIX TAB)QK5795Cfzttbonik983 MGQHS07/17 8151WW23/25(NEURONTIN CAP)OX7984Xkwcyqhovgv Bitart/1 VMISI2EHIB PRN109/18 1430ACAcetaminophenPO(NORC O 5-325 TAB)Hydrocodone Bitart/2 QAVPB9QRJX PRN109/18 3611PD26/26AcetaminophenPO 1353(NORCO 5-325 TAB)Hydromorphone HCl2 XAL6PLWY PRN109/16 1100AC(DILAUDID D.SYR)IMInsulin Gbvbzhev26 NAPEINRA39/22 9382TW58/25(LANTUS SOLOSTAR PEN)LX3835Meaqepx Human LisproSee FevfMVJM38/21 9814HA44/25(humaLOG/novoLO G PEN)Insts (1)WO9474Fdjcenasmqm3 LYDBYN5207/17 2200AC109/20(XALATAN 0.005% BHMIOD1123YQYV)Pantoprazol e Hdgrxj73 ACZOPVMX01/22 6881TY54/26(PROTONIX TAB)FG0501Hxvdderhjla Hnpnma99 MGQHS07/17 5103IL13/25(PRAVACHOL TAB)BC4907Sjcpoj Chloride3 OAG3A32/21 0334RH90/25(Sodium OzjniqqoNY68687.9% FLUSH D.SYR)Sodium Chloride3 MLPRN PRN109/16 1100AC(Sodium ChlorideIV0.9% FLUSH D.SYR)Tamsulosin HCl0.4 DDKDMHSF95/25 1850RM77/26(FLOMAX CAP)FG2585Kkkwzugkghvmtdrw e AHf634 ITX9JDMQ PRN109/16 1100AC(TIGAN VIAL)IMZolpidem Tartrate5 MGQHSPRN PRN109/16 1100AC(AMBIEN TAB)PODose Instructions:(1)Insulin Human Lispro (humaLOG/novoLOG PEN):2-10 UnitsLab 24hr (CBC/BMP Fishbone)07/22/18 1110:Whole Bld Glucose 84 L11 0625:Whole Bld Glucose 0531:[Embedded Image Not Available]Anion Gap 8, Est GFR ( Amer) 26, Est GFR (Non-Af Amer) 21, BUN/Creatinine Ratio 22,Glucose 74, Total Calcium 7.4 L, Eup-V-Yeblefxmcfd Pept 05760 H109/20/17 2034:Whole Bld Glucose 138 H109/20/17 1620:Whole Bld Glucose 193 HAssessment and PlanConclusion1. Urinary retentionAcutePlan to remove Butler catheter and voiding trial today, if failed patient will require aFoley catheter at home.Continue with the Flomax.2. HyponatremiaAcuteLikely related to volume overload seems to be improving with Lasix.Restarted on oral Lasix 60 mg twice daily.3. Acute renal failure superimposed on stage 3 chronic kidney diseaseAcuteSecondary to volume overload.Improving creatinine with Lasix.Outpatient BMP for follow-up of the kidney function.4. ArthritisChronicTo the right hip status post surgical intervention.5. Systolic heart failureChronicWith acute and chronic component that could be started the day after the surgery butapparently was not presented on admission.Continue with Lasix 60 mg orally twice daily.Continue holding lisinopril and Zaroxolyn.6. Coronary artery diseaseChronicNo acute issue.7. HypertensionChronicStable blood pressure, avoid hypotension.8. 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 Protein mass [facility] PROG.NEPHon 07-22-2018 Protein mass [facility] Protein mass [facility] Patient Name: VALENTE QUINONES [employer] Date of : [address] [place] [address] Unit Number: [id number] Number: [id number] Note-Nephrology Patient Status: ADM INAttending Doctor: Jensen Peguero DOService Date: 07/22/18 1152Progress Note-Nephrology([facility])Subj ectiveSubjective:Seen and examined. Up in a chair. Overall feels better. No acute events overnightObjectiveVital Signs:Vital Signs (Last)ResultDate TimePulse Jz6460/26 0815B/P143/6211 9682Mslm75.011 3988Jgcan7525/26 6070Pdlu4872/26 0815O2 DeliveryNASAL XJMQZSC88/22 0440O2 Flow Dhcb522/22 0440IandO 24 Hour Fvpeyes41/26 0000Intake Yqksf7712Vojebp Fuzkw0260Olqmlal-83Eineaa, TO823Rlyjkt, Phnv2480Vyfxwl, Stpnm3Pbxxly, Oeqau2138Hrpi:Lungs-clearH eart-regularLower extremity-no edemaMedications:Medicatio ns CurrentSig/SchStart timeLastMedicationDoseRout eStop TimeStatusAdminAl Hydrox/Mg Hydrox/30 LVT5RVLV PRN109/16 1100ACSimethiconePO(MAALOX (ALAMAG)PLUSORAL LIQ)Jbqdvku207 YGTDTVKU62/22 9251MS19/26(ECOTRIN TAB.EC)LE4420Fbhwbjslbznyq ne HCl25 UZF6FFUQ PRN109/16 1100AC(BENADRYL CAP)PODocusate Uwhebfi843 MGQ12H@21109/16 2099AC109/21(SURFAK CAP)YS2756Fdnixvbqk Mesylate2 MGBID109/16 2099AC109/21(CARDURA TAB)WA5349Htttprklvu Tggrbf65 LAQ92C38/22 9017MD60/26(LOVENOX D.SYR)XT5404Zxjdusnuyl60 MGBID.30AC109/21 0834ZR34(LASIX TAB)IG1673Gveleqgkwz499 MGQHS07/17 2200AC109/20(NEURONTIN CAP)PF5072Yauqnyadrvg Bitart/1 IJNOS2CXSG PRN109/18 1430ACAcetaminophenPO(NORC O 5-325 TAB)Hydrocodone Bitart/2 BWQSG9QYUI PRN109/18 3399EZ40/26AcetaminophenPO 0710(NORCO 5-325 TAB)Hydromorphone HCl2 GLZ1MLWV PRN109/16 1100AC(DILAUDID D.SYR)IMInsulin Lfdhesjq58 UPOVYKCO39/22 7169NP50/25(LANTUS SOLOSTAR PEN)UQ6285Oaisszp Human LisproSee KgpxQKJH31/21 1594NS74/25(humaLOG/novoLO G PEN)Insts (1)GC0738Movvcnydvlm4 LRAVDH7607/17 2200AC109/20(XALATAN 0.005% XZJCEL1026NCYP)Pantoprazol e Qesyjc53 AHETSAJQ65/22 0111RF96/26(PROTONIX TAB)GG1557Gdizeqdholw Atesjc02 MGQHS07/17 2200AC109/20(PRAVACHOL TAB)GB4746Ogakpp Chloride3 FFH7T13/21 9745KR25/25(Sodium EpvqyygcVL28615.9% FLUSH D.SYR)Sodium Chloride3 MLPRN PRN109/16 1100AC(Sodium ChlorideIV0.9% FLUSH D.SYR)Tamsulosin HCl0.4 KYGTIZEL80/25 3347UQ24/26(FLOMAX CAP)QI8268Pmwmkfqvmuuudsvz e XHo074 UXH3SQFG PRN109/16 1100AC(TIGAN VIAL)IMZolpidem Tartrate5 MGQHSPRN PRN109/16 1100AC(AMBIEN TAB)PODose Instructions:(1)Insulin Human Lispro (humaLOG/novoLOG PEN):2-10 UnitsRadiology Impressions:Recent Impressions (LAST)ULTRASOUND - US KIDNEY 07/19 1150 Report Impression - Status: SIGNED Entered: 07/19/2018 1942IMPRESSION:Normal renal ultrasound. No abnormal distention. Impression By: MJ ELIZABETH M.D.RADIOLOGY - PORTABLE CHEST 07/22 0500 Report Impression - Status: SIGNED Entered: 07/22/2018 0721IMPRESSION:1. Cardiomegaly with borderline congestion.2. Trace bilateral effusions. Impression By: LOAN GUERRERO M.D.Lab Results:Lab 24hr (CBC/BMP [facility])07/22/18 1110:Whole Bld Glucose 84 L109/21/17 0625:Whole Bld Glucose 0531:[Embedded Image Not Available]Anion Gap 8, Est GFR ( Amer) 26, Est GFR (Non-Af Amer) 21, BUN/Creatinine Ratio 22,Glucose 74, Total Calcium 7.4 L, Rlh-L-Yrgxhxwwmrf Pept 72463 H109/20/17 2034:Whole Bld Glucose 138 H109/20/17 1620:Whole Bld Glucose 193 HAssessment/PlanAssessment /Problem List:1. Acute renal failure superimposed on stage 3 chronic kidney diseaseAcuteo creatinine better today; stable electrolyteso clinically appears euvolemico continue p.o. Lasixo continue to hold VANESSA inhibitor until GARRET resolveso DC Butler catheter; voiding trial; check PVR later this afternoon. Okay to DC if < 250ml. Continue Flomaxo okay to DC today from my standpointo outpatient follow-up with me in 2-3 weeks2. HyponatremiaAcuteo probably hypervolemico improvingo continue diuretics3. HypertensionChronico stable on current medicationo low-sodium diet4. Urinary retentionAcuteo voiding trial; if fails, DC to home with Butler catheter and urology follow-upo continue FlomaxCommunication Today with:Discussed with nursing staffDisclaimerThis dictation was created using voice recognition software.Phonetic and/or minor grammatical errors may exist.eSign Date and TimeJameson Sullivan MD Verified/Reviewed by 07/22/18 1157 Normal [facility] PROG.ORTHOon 07-22-2018 Protein mass conc [facility] Patient Name: MAURI QUINONES1320 [employer] Date of : [address] [place] [address] Unit Number: [id number] Number: [id number] Note-Ortho Patient Status: ADM INAttending Doctor: Jensen Peguero DOService Date: 07/22/18 0944Progress Note - OrthoSubjectiveS: (2 ROS minimum)Patient seen and examined, continues to do very well. He is only complaining of minimalpain in his right hip that is well controlled with oral pain medications.ObjectiveNursi ng VitalsVital Signs (Last)ResultDate TimePulse Rq7466/25 2320B/P152/7411/25 3290Bepn51.411/25 1491Qifdf9974/25 5584Mrcr9753/25 2320O2 DeliveryNASAL YWHFCNP70/22 0440O2 Flow Mrhc526/22 0440Physical ExamGeneral: Alert and oriented x3, no acute distressLE: SILT L2-S15/5 strength with DF/PF/EHL2+ distal pulses- calf tendernessDressing clean, dry, intactDiagnostic DataLab 24hr (CBC/BMP Fishbone)07/22/18 0625:Whole Bld Glucose 0531:[Embedded Image Not Available]Anion Gap 8, Est GFR ( Amer) 26, Est GFR (Non-Af Amer) 21, BUN/Creatinine Ratio 22,Glucose 74, Total Calcium 7.4 L, Ngb-M-Bayseddxyti Pept 84105 07/21/18 2034:Whole Bld Glucose 138 H109/20/17 1620:Whole Bld Glucose 193 H109/20/17 1121:Whole Bld Glucose 138 HAssessment/PlanConclusion 1. ArthritisChronicPatient is postop day 5 from right total hip arthroplasty. From an orthopedic standpointhe is doing very well. He has been ambulating without difficulty. His creatinine isslightly improved to 3.0 from 3.2 yesterday. We will continue to monitor nephrologyrecommendations. Continue PT and OT.2. Acute renal failure superimposed on stage 3 chronic kidney diseaseAcute3. Urinary retentionAcuteDisclaimerTh is dictation was created using voice recognition software.Phonetic and/or minor grammatical errors may exist.eSign Date and TimeDRigoberto sewell DO Verified/Reviewed by 07/22/18 Jensen Hewitt DO Normal [facility] Protein mass conc Normal [facility] BMPon 07-21-2018 Anion gap 3 molar conc 8 mmol/L Normal 5-16 [facility] Comment on above: Order Comment: Campu s: MIs This Patient Going To Surgery? YSurgery Date: 02/20/18 Performed By: #### L 500.70144, L500.25143 ####[facility] JZKLMAOOOJ[address] [place], [place] [address]Ax# [phone] Calcium mass conc 7.6 mg/dL Low 8.5-10.1 [facility] Comment on above: Order Comment: Campu s: MIs This Patient Going To Surgery? YSurgery Date: 02/20/18 Performed By: #### L 500.16415, L500.99415 ####[facility] GBYQ[address]IGVR[address] [place], [place] [address]Ov# [phone] Chloride molar conc 93 mmol/L Low 98-107 [facility] Comment on above: Order Comment: Campu s: MIs This Patient Going To Surgery? YSurgery Date: 02/20/18 Performed By: #### L 500.09568, L500.89909 ####[facility] YPZQCTFTMO32[address] [place], [place] [address]Ws# [phone] CO2 molar conc 27 mmol/L Normal 21-32 [facility] Comment on above: Order Comment: Campu s: MIs This Patient Going To Surgery? YSurgery Date: 02/20/18 Performed By: #### L 500.33006, L500.01896 ####[facility] MNLXASEIXT[address]2 [place], [place] [address]Jn# [phone] Creatinine mass conc 3.310 mg/dL High 0.670-1.170 [facility] Comment on above: Order Comment: Campu s: MIs This Patient Going To Surgery? YSurgery Date: 02/20/18 Result Comment: Macrina ents receiving either N-Acetylcysteine (NAC) orMetamizole prior to venipuncture, may have falsely depressedresults. Performed By: #### L 500.93178, L500.51493 ####[facility] OBS[address]IFLPN[address] [place], [place] [address]Zd# [phone] Glucose mass conc 74 mg/dL Normal 70-100 [facility] Comment on above: Order Comment: Campu s: MIs This Patient Going To Surgery? YSurgery Date: 02/20/18 Result Comment: 70-1 00- Normal Fasting; 100-125 Impaired Fasting; greaterthan 126 on more than one result- Diabetes. ADA guidelines.Results may be falsely elevated after the administration ofSulfapyridine.Results may be falsely depressed after the administration ofSulfasalazine. Performed By: #### L 500.35982, L500.94654 ####[facility] [address]AEAZ[address] [place], [place] [address]Wm# [phone] Potassium molar conc 5.0 mmol/L Normal 3.5-5.1 [facility] Comment on above: Order Comment: Campu s: MIs This Patient Going To Surgery? YSurgery Date: 02/20/18 Performed By: #### L 500.42698, L500.80627 ####[facility] YXEHDGZTPL88[address] [place], [place] [address]Fc# [phone] Sodium molar conc 128 mmol/L Low 136-145 [facility] Comment on above: Order Comment: Campu s: MIs This Patient Going To Surgery? YSurgery Date: 02/20/18 Performed By: #### L 500.99494, L500.33730 ####[facility] LZJVIQLMNB6[address] [place], [place] [address]Cg# [phone] Urea nitrogen mass conc 69 mg/dL High 7-26 [facility] Order Comment: Campu s: MIs This Patient Going To Surgery? YSurgery Date: 02/20/18 Performed By: #### L 500.05339, L500.27540 ####[facility] [id number] [place], [place] [address]Bi# [phone] Urea nitrogen/Creatinine mass ratio 21 mg/mg Normal 15-24 [facility] Comment on above: Order Comment: Campu s: MIs This Patient Going To Surgery? YSurgery Date: 02/20/18 Performed By: #### L 500.67891, L500.54856 ####[facility] NJTXDTSSIA[address]57 [place], [place] [address]Yt# [phone] Anion gap 3 molar conc 8 mmol/L Normal 5-16 [facility]: Order Comment: Campu s: MIs This Patient Going To Surgery? YSurgery Date: 02/20/18 Performed By: #### L 500.99829, L500.89226 ####[facility] TUWGCWQDVO3648 [place], [place] [address]Th# [phone] Calcium mass conc 7.5 mg/dL Low 8.5-10.1 [facility] Comment on above: Order Comment: Campu s: MIs This Patient Going To Surgery? YSurgery Date: 02/20/18 Performed By: #### L 500.66474, L500.25622 ####[facility] XNLGUYFMPJ[address]70 [place], [place] [address]Om# [phone] Chloride molar conc 91 mmol/L Low 98-107 [facility] Comment on above: Order Comment: Campu s: MIs This Patient Going To Surgery? YSurgery Date: 02/20/18 Performed By: #### L 500.92096, L500.51240 ####[facility] IZZ[address]SIQDM[address] [place], [place] [address]Qu# [phone] Order Comment: Campu s: M Performed By: #### L 500.54003, L500.34585, L500.78599, L500.12060 ####[facility] AJPLMPFVDN70[address] [place], [place] [address]Se# [phone] CO2 molar conc 27 mmol/L Normal 21-32 [facility] Comment on above: Order Comment: Campu s: MIs This Patient Going To Surgery? YSurgery Date: 02/20/18 Performed By: #### L 500.52427, L500.42405 ####[facility] OVZCEMDUKT3475 [place], [place] [address]So# [phone] Creatinine mass conc 3.260 mg/dL High 0.670-1.170 [facility] Comment on above: Order Comment: Campu s: MIs This Patient Going To Surgery? YSurgery Date: 02/20/18 Result Comment: Macrina ents receiving either N-Acetylcysteine (NAC) orMetamizole prior to venipuncture, may have falsely depressedresults. Performed By: #### L 500.16622, L500.01528 ####[facility] MUEZUAADWS[address] [place], [place] [address]Dc# [phone] Glucose mass conc 154 mg/dL High 70-100 [facility] Comment on above: Order Comment: Campu s: MIs This Patient Going To Surgery? YSurgery Date: 02/20/18 Result Comment: 70-1 00- Normal Fasting; 100-125 Impaired Fasting; greaterthan 126 on more than one result- Diabetes. ADA guidelines.Results may be falsely elevated after the administration ofSulfapyridine.Results may be falsely depressed after the administration ofSulfasalazine. Performed By: #### L 500.50877, L500.23660 ####[facility] W[address]FVUVHWK[address] [place], [place] [address]Mh# [phone] Potassium molar conc 5.0 mmol/L Normal 3.5-5.1 [facility] Comment on above: Order Comment: Campu s: MIs This Patient Going To Surgery? YSurgery Date: 02/20/18 Performed By: #### L 500.25510, L500.30450 ####[facility] [id number] [place], [place] [address]Xv# [phone] Sodium molar conc 126 mmol/L Low 136-145 [facility] Comment on above: Order Comment: Campu s: MIs This Patient Going To Surgery? YSurgery Date: 02/20/18 Performed By: #### L 500.96942, L500.87084 ####[facility] SIHUWVFWNM7327 [place], [place] [address]Ho# [phone] Urea nitrogen mass conc 68 mg/dL High 7-26 [facility] Comment on above: Order Comment: Campu s: MIs This Patient Going To Surgery? YSurgery Date: 02/20/18 Performed By: #### L 500.48814, L500.21810 ####[facility] HTWEYMLPBY59[address] [place], [place] [address]Ha# [phone] Urea nitrogen/Creatinine mass ratio 21 mg/mg Normal 15-24 [facility] Comment on above: Order Comment: Campu s: MIs This Patient Going To Surgery? YSurgery Date: 02/20/18 Performed By: #### L 500.26888, L500.06717 ####[facility] JQCJPHJDRI[address] [place], [place] [address]Lm# [phone] GFR ESTon 07-21-2018 IF AMER 23 ML/MIN Normal [facility] Comment on above: Order Comment: Campu s: MIs This Patient Going To Surgery? YSurgery Date: 02/20/18 Performed By: #### L 500.69123, L500.08754 ####[facility] [id number] [place], [place] [address]Ye# [phone] IF non-AFR AMER 19 ML/MIN Normal [facility] Clifford Comment on above: Order Comment: Campu s: MIs This Patient Going To Surgery? YSurgery Date: 02/20/18 Performed By: #### L 500.27526, L500.31050 ####[facility] [id number] [place], [place] [address]Kw# [phone] IF AMER 24 ML/MIN Normal [facility] Clifford Comment on above: Order Comment: Campu s: MIs This Patient Going To Surgery? YSurgery Date: 02/20/18 Performed By: #### L 500.16720, L500.27332 ####[facility] OOSQFGFQKJ1699 [place], [place] [address]Fq# [phone] IF non-AFR AMER 19 ML/MIN Normal [facility] Comment on above: Order Comment: Campu s: MIs This Patient Going To Surgery? YSurgery Date: 02/20/18 Performed By: #### L 500.77392, L500.57744 ####[facility] [id number] [place], [place] [address]Fn# [phone] Order Comment: Campu s: M Performed By: #### L 500.70795, L500.63248, L500.07798, L500.14927 ####[facility] [id number] [place], [place] [address]Qm# [phone] GLUCOSE METERon 07-21-2018 Glucose mass conc 138 mg/dL High 85-125 [facility] 193 mg/dL High 85-125 [facility] Clifford Glucose mass conc 138 mg/dL High 85-125 [facility] Glucose mass conc 73 mg/dL Low 85-125 [facility] PROG IMSon 07-21-2018 Protein [facility] conc [facility] Patient Name: MAURI [id number] [facility] Date of : [address] [place] [address] Unit Number: [id number] Number: [id number] Note-Hospitalist Patient Status: ADM INAttending Doctor: Jensen Peguero DOService Date: 07/21/18 1441Chief ComplaintChief ComplaintRight hip painSubjectiveS: (2 ROS minimum)Patient remained stable with no chest pain or shortness of breath, denied any abdominalpain nausea vomiting or diarrhea.Objective (ROS)Nursing VitalsVital Signs (Last)ResultDate TimePulse Ef2299 0745B/P139/6711 4065Gebs62.611 8671Tteqn9694/25 3397Duat0317/25 0745O2 DeliveryNASAL XKSHMNK27/22 0440O2 Flow Ibie359/22 0440General AppearanceComfortablePhysi sabrina ExamPhysical Examination NotesNeurological / Psychiatric Alert, Orientation E2DOBPM EOMI, PERRLNeck No JVD, No Enlarged ThyroidRespiratory Normal Breathing Effort, Clear LungsCardiovascular Heart RRR, No M / R / GGastrointestinal Normal Bowel Sounds, Non TenderMusculoskeletal No EdemaSkin No Rash, Warm / DryDiagnostic Data:Medications CurrentSig/SchStart timeLastMedicationDoseRout eStop TimeStatusAdminAl Hydrox/Mg Hydrox/30 LOA0OELP PRN109/16 1100ACSimethiconePO(MAALOX (ALAMAG)PLUSORAL LIQ)Viagmge491 TULQTUHU86/22 0760QG00/25(ECOTRIN TAB.EC)NI0907Rpwzsyyjbjmxj ne HCl25 DYB1RZBI PRN109/16 1100AC(BENADRYL CAP)PODocusate Bfnwtxw552 MGQ12H@21109/16 6789QX49/25(SURFAK CAP)KZ2717Zjkmwhtir Mesylate2 MGBID109/16 7596ZL37/25(CARDURA TAB)DR4644Ehjwvwsvfh Bxivbr56 EEH56G7422 8946PB28/25(LOVENOX D.SYR)FX0753Rgaapnrhje612 MGQHS07/17 6779HM14/24(NEURONTIN CAP)RS5039Gpgnmgcjcdp Bitart/1 KDRWK0NGHA PRN109/18 1430ACAcetaminophenPO(NORC O 5-325 TAB)Hydrocodone Bitart/2 NFEHB4VAWY PRN109/18 4639WO36/25AcetaminophenPO 0755(NORCO 5-325 TAB)Hydromorphone HCl2 LBA3EPVN PRN109/16 1100AC(DILAUDID D.SYR)IMInsulin Rbipyoez44 HNMNMABC64/22 9223QE41/24(LANTUS SOLOSTAR PEN)KI0172Avbrvmh Human LisproSee MqtoTIQU44/21 1922PK77/24(humaLOG/novoLO G PEN)Insts (1)MP6026Vktqelztyqy1 UUPOXU64/21 0128OQ55/24(XALATAN 0.005% SITVMA8894BBBY)Pantoprazol e Knhqrb39 COOMVXYG46/22 9547IK26/25(PROTONIX TAB)KR4035Eapfcqbbkri Swsvah67 MGQHS07/17 9294UN30/24(PRAVACHOL TAB)JU8332Zrrzzp Chloride3 TTJ2V85/21 6146BC63/25(Sodium OgnblwzaYF33720.9% FLUSH D.SYR)Sodium Chloride3 MLPRN PRN109/16 1100AC(Sodium ChlorideIV0.9% FLUSH D.SYR)Tamsulosin HCl0.4 DIOHJHXQ03/25 7203VI57/25(FLOMAX CAP)XT3647Diuujkcocoaptkrp e IWc930 IFH8EGPS PRN109/16 1100AC(TIGAN VIAL)IMZolpidem Tartrate5 MGQHSPRN PRN109/16 1100AC(AMBIEN TAB)PODose Instructions:(1)Insulin Human Lispro (humaLOG/novoLOG PEN):2-10 UnitsLab 24hr (CBC/BMP Fishbone)07/21/18 1121:Whole Bld Glucose 138 H109/20/17 0634:Whole Bld Glucose 73 L109/20/17 0546:[Embedded Image Not Available]Anion Gap 8, Est GFR ( Amer) 23, Est GFR (Non-Af Amer) 19, BUN/Creatinine Ratio 21,Glucose 74, Total Calcium 7.6 L109/19/17 2145:[Embedded Image Not Available]Anion Gap 8, Est GFR ( Amer) 24, Est GFR (Non-Af Amer) 19, BUN/Creatinine Ratio 21,Glucose 154 H, Total Calcium 7.5 L109/19/17 2055:Whole Bld Glucose 197 H109/19/17 1839:Urine Osmolality 08172/2418 1619:Whole Bld Glucose 155 H1/18 1558:[Embedded Image Not Available]Serum Osmolality 297, Usj-L-Clhwjselpkg Pept 03233 H, Thyroxine (T4) 8.5, T3 Uptake 38.0,TSH, Ultra Sensitive 1.150Assessment and PlanConclusion1. Urinary retentionAcuteStatus post Butler catheter placement.Continue with the Flomax.Patient should be referred to urologist for outpatient voiding trial.2. HyponatremiaAcuteDid not improve with IV fluids and initially neither with IV Lasix yesterday.Based on the chest x-ray and elevated BNP, patient could have mild volume overload that isnot clinically obvious.We will try another dose of IV Lasix today, strict I's and O's and daily weight and watchsodium level closely.3. Acute renal failure superimposed on stage 3 chronic kidney diseaseAcuteBased on the chest x-ray and elevated BNP, worsening kidney function could be related tomild volume overload not dehydration or volume depletion.Was giving 1 dose of Lasix yesterday patient diuresed 2 L of urine however the creatinineand the sodium remained low, we will give another dose of Lasix today and repeat BMPtomorrow morning.4. ArthritisChronicTo the right hip status post surgical intervention.5. Systolic heart failureChronicWith acute and chronic component that could be started the day after the surgery butapparently was not presented on admission.We will challenge the patient's with Lasix and follow urine output.6. Coronary artery diseaseChronicNo acute issue.7. HypertensionChronicStable blood pressure, avoid hypotension.8. IDDM (insulin dependent diabetes mellitus)ChronicContinue with Lantus and sliding scale insulin.Stay Reason/Anticipated Disch Awaiting Test ResultsDisclaimerThis dictation was created using voice recognition software.Phonetic and/or minor grammatical errors may exist.eSign Date and TimeJaraSigrid reddy MD Verified/Reviewed by 07/21/18 9015 [facility] Carley FINLEYNEPHon 07-21-2018 Protein mass conc [facility] Patient Name: MAURI QUINONES13[address] [employer] [address] [address] Date of : [address] [address] Unit Number: [id number] Number: [id number] Note-Nephrology Patient Status: ADM INAttending Doctor: Jensen Peguero DOService Date: 07/21/18 0931Progress Note-[facility]phrology([facility])Subj ectiveSubjective:Seen and examined. Resting comfortably. No acute events overnight. Voided 2 L sybwxptuh32 mg of LasixObjectiveVital Signs:Vital Signs (Last)ResultDate TimePulse Hu0039/25 0745B/P139/6707/21 1466Dmtw91.6109/20 7220Rzogw9619/25 7872Octk0855/25 0745O2 DeliveryNASAL SLLHFEP40/22 0440O2 Flow Ovfs349/22 0440IandO 24 Hour Xsleyoj83/25 0000Intake Jznkk0937Gxqtlt Ipqfe3594Ugpzxdf6329Shkatx , Fzfv4718Okyqvx, Nnasa9Kzkyrj, Gfvio5576Ejat:Lungs-fine bibasilar cracklesHeart-regularLower extremity-no edemaMedications:Medicatio ns CurrentSig/SchStart timeLastMedicationDoseRout eStop TimeStatusAdminAl Hydrox/Mg Hydrox/30 MPA9EXFV PRN109/16 1100ACSimethiconePO(MAALOX (ALAMAG)PLUSORAL LIQ)Bwqsnfj406 WKUHPZHD17/22 0715LJ43/25(ECOTRIN TAB.EC)CB1445Ofpwgbjhisdee ne HCl25 MWI5JMJY PRN109/16 1100AC(BENADRYL CAP)PODocusate Spjceyb437 MGQ12H@21109/16 3282HS64/25(SURFAK CAP)SE2038Elwyjxzqd Mesylate2 MGBID109/16 0760EO56/25(CARDURA TAB)VT7952Facvrguibw Jaeimf51 IOF41T18/22 5035QB04/25(LOVENOX D.SYR)QM1931Ngseki Vzwtfr718 QLOZOQ30/24 3522MZ72/69UflazqsbfWB76/2 5 73098937(FERRLECIT AMP)Sodium Kyokjirz749 ML(Sodium Chloride0.9%)Asduhsmbjt263 MGQHS11 2190DV46/24(NEURONTIN CAP)CK3250Qpabletnsmq Bitart/1 OKDEG9LILT PRN109/18 1430ACAcetaminophenPO(NORC O 5-325 TAB)Hydrocodone Bitart/2 JPONN5SJGD PRN109/18 1530AJ07/25AcetaminophenPO 0755(NORCO 5-325 TAB)Hydromorphone HCl2 CNU6KVMI PRN109/16 1100AC(DILAUDID D.SYR)IMInsulin Hkpjqslk18 SVUGUALQ52/22 5618QE94/24(LANTUS SOLOSTAR PEN)GQ8279Kwadwps Human LisproSee ArlkHVFB59/21 9001BR28/24(humaLOG/novoLO G PEN)Insts (1)RH5186Albexpqnnml4 BJABUU3407/17 2200AC109/19(XALATAN 0.005% VUFQCG3755MDIH)Pantoprazol e Ctgvoc05 EVEUYCBO32/22 4772NU25/25(PROTONIX TAB)QO1589Wzraluoqeng Bfsnid90 MGQHS07/17 7986JJ16/24(PRAVACHOL TAB)QU5420Frqbrr Chloride3 UDF8P62 8207EF21/25(Sodium OgtuhsxjVI99893.9% FLUSH D.SYR)Sodium Chloride3 MLPRN PRN109/16 1100AC(Sodium ChlorideIV0.9% FLUSH D.SYR)Trimethobenzamide LXe687 WYU0ANDM PRN109/16 1100AC(TIGAN VIAL)IMZolpidem Tartrate5 MGQHSPRN PRN109/16 1100AC(AMBIEN TAB)PODose Instructions:(1)Insulin Human Lispro (humaLOG/novoLOG PEN):2-10 UnitsLab Results:Lab 24hr (CBC/BMP Fishbone)07/21/18 0634:Whole Bld Glucose 73 L109/20/17 0546:[Embedded Image Not Available]Anion Gap 8, Est GFR ( Amer) 23, Est GFR (Non-Af Amer) 19, BUN/Creatinine Ratio 21,Glucose 74, Total Calcium 7.6 L11/24/18 2145:[Embedded Image Not Available]Anion Gap 8, Est GFR ( Amer) 24, Est GFR (Non-Af Amer) 19, BUN/Creatinine Ratio 21,Glucose 154 H, Total Calcium 7.5 L109/19/172054:Whole Bld Glucose 197 H109/19/17 1839:Urine Osmolality 32681 1619:Whole Bld Glucose 155 H109/19/17 1558:[Embedded Image Not Available]Serum Osmolality 297, Lya-K-Fhiluyjkoqa Pept 95918 H, Thyroxine (T4) 8.5, T3 Uptake 38.0,TSH, Ultra Sensitive 1.92802 1127:Whole Bld Glucose 152 HAssessment/PlanAssessment /Problem List:1. Acute renal failure superimposed on stage 3 chronic kidney diseaseAcuteo azotemia unchangedo clinically mild hypervolemiao will continue low-dose diuretics today; check BMP and CXR in a.m.o continue to hold VANESSA inhibitoro not ready for discharge at this time2. HyponatremiaAcuteo probably hypervolemico low-dose diureticso check morning labs3. HypertensionChronico stable on current medication4. Urinary retentionAcuteo s/p Butler cathetero add FlomaxCommunication Today with:Discussed with over the phoneDisclaimerThis dictation was created using voice recognition software.Phonetic and/or minor grammatical errors may exist.eSign Date and TimeJameson Sullivan MD Verified/Reviewed by 07/21/18 0936 [facility] Clifford Protein mass [facility] Clifford PROG.ORTHOon 07-21-2018 Protein mass [facility] Protein mass [facility] Patient Name: MAURI QUINONES13[address] [employer] [address] Date of : [address] [address] Unit Number: [id number] Number: [id number] Note-Ortho Patient Status: ADM INAttending Doctor: Jensen Peguero DOService Date: 07/21/18 0703Progress Note - OrthoSubjectiveS: (2 ROS minimum)Patient seen today. Having very little pain. No difficulty with ambulation. He isfeeling well overall. He hasFoley catheter placed. Patient is frustrated. He is wantingto go home, but he is remaining in hospital due to elevated kidney markers. He feels thathe is not getting up and walking as much throughout the day as he would like.ObjectiveNursing VitalsVital Signs (Last)ResultDate TimePulse Xc1544/24 2320B/P146/7511/24 4105Ahtg25.411/24 9204Tkiux5020/24 3936Ffzc3119/24 2320O2 DeliveryNASAL TGNJMYG35/22 0440O2 Flow Lanb925/22 0440Physical ExamRLEDressing dry and intact.Skin surrounding incision is without erythema or breakdown.Calf is nontender to palpation.2+ distal pulses5 out of 5 strength with DH/PH/EHLDiagnostic DataLab 24hr (CBC/BMP Fishbone)07/21/18 0634:Whole Bld Glucose 73 L109/20/17 0546:[Embedded Image Not Available]Anion Gap 8, Est GFR ( Amer) 23, Est GFR (Non-Af Amer) 19, BUN/Creatinine Ratio 21,Glucose 74, Total Calcium 7.6 L109/19/17 2145:[Embedded Image Not Available]Anion Gap 8, Est GFR ( Amer) 24, Est GFR (Non-Af Amer) 19, BUN/Creatinine Ratio 21,Glucose 154 H, Total Calcium 7.5 L109/19/17 2055:Whole Bld Glucose 197 H109/19/18 1839:Urine Osmolality 98012/24/18 1619:Whole Bld Glucose 155 H11/24/18 1558:[Embedded Image Not Available]Serum Osmolality 297, Qrs-L-Aavmtdjgtzn Pept 05923 H, Thyroxine (T4) 8.5, T3 Uptake 38.0,TSH, Ultra Sensitive 1.41304//18 1127:Whole Bld Glucose 152 H11/24/18 0833:Troponin I 0.020Assessment/PlanConclu sion1. ArthritisChronicPatient is postop day 4 from removal of hardware from RIGHT hip with RTHA. From anorthopedic standpoint he is doing well. He is able to ambulate without difficulty withlow pain levelsPatient's kidney markers continue to remain elevated despite placement of Butler catheterand adequate hydration. This is to be monitored by internal medicine and nephrology.Discharge pending review by medicine. Patient is to continue with PT OT while inhospital.On Sat 7:03a Jul 20, 2018 RIGOBERTO DOLAN wrotePostoperative day #3 status post right total hip arthroplastyPatient had Butler catheter placed yesterday due to urinary retention. He has history ofchronic kidney disease however appears to have acute kidney injury additionally. Hiscreatinine levels continue to rise despite Butler placement and increased hydration. Wewill have medicine continue to manage this.Patient may be weight bear as tolerated on his right lower extremity, continue PT and OTas long as he is in the hospital. Will plan on discharge home when medically stabilized.2. Acute renal failure superimposed on stage 3 chronic kidney diseaseAcute3. Urinary retentionAcuteStable ProblemsProblems not specifically addressed in the above plan are stable and do not warrantadjustment of the current method of therapy.DisclaimerThis dictation was created using voice recognition software.Phonetic and/or minor grammatical errors may exist.eSign Date and TimeDRigoberto sewlel DO Verified/Reviewed by 07/21/18 Jensen Fuller DO Normal [facility] BMPon 07-20-2018 Anion gap 3 molar conc 9 mmol/L Normal 5-16 [facility] Comment on above: Order Comment: Campu s: M Performed By: #### L 500.61861, L500.37709, L500.31660, L500.31734 ####[facility] QBKUCYPJGL29[address] [place], [place] [address]Lq# [phone] Calcium mass conc 7.6 mg/dL Low 8.5-10.1 [facility] Comment on above: Order Comment: Campu s: M Performed By: #### L 500.28071, L500.82209, L500.17511, L500.10503 ####[facility] ZHFCFWQQIA4978 [place], [place] [address]Ew# [phone] CO2 molar conc 28 mmol/L Normal 21-32 [facility] Comment on above: Order Comment: Campu s: M Performed By: #### L 500.70831, L500.60595, L500.36429, L500.82684 ####[facility] BUJHHOAEOU8072 [place], [place] [address]Kl# [phone] Creatinine mass conc 3.360 mg/dL High 0.670-1.170 [facility] Clifford Comment on above: Order Comment: Jorgeu s: M Result Comment: Macrina ents receiving either N-Acetylcysteine (NAC) orMetamizole prior to venipuncture, may have falsely depressedresults. Performed By: #### L 500.20315, L500.14359, L500.31253, L500.55851 ####[facility] MZLEPNUNVU8[address] [place], [place] [address]Uw# [phone] Glucose mass conc 115 mg/dL High 70-100 [facility] Comment on above: Order Comment: Jorgeu s: M Result Comment: 70-1 00- Normal Fasting; 100-125 Impaired Fasting; greaterthan 126 on more than one result- Diabetes. ADA guidelines.Results may be falsely elevated after the administration ofSulfapyridine.Results may be falsely depressed after the administration ofSulfasalazine. Performed By: #### L 500.86235, L500.12103, L500.59518, L500.69655 ####[facility] [id number] [place], [place] [address]We# [phone] Sodium molar conc 128 mmol/L Low 136-145 [facility] Comment on above: Order Comment: Jorgeu s: M Performed By: #### L 500.17850, L500.78657, L500.22304, L500.78828 ####[facility] DCTNSKLRLK2613 [place], [place] [address]Xq# [phone] Urea nitrogen/Creatinine mass ratio 19 mg/mg Normal 15-24 [facility] Comment on above: Order Comment: Jorgeu s: M Performed By: #### L 500.54325, L500.34838, L500.45863, L500.01906 ####[facility] JXNSTSPHZQ5933 [place], [place] [address]Fu# [phone] Anion gap 3 molar conc 8 mmol/L Normal 5-16 [facility] Comment on above: Order Comment: Campu s: M Performed By: #### L 500.11324, L500.08989, L500.78536, L500.61215 ####[facility] WXVCGLKGHZ3658 [place], [place] [address]Jp# [phone] Calcium mass conc 7.8 mg/dL Low 8.5-10.1 [facility] Comment on above: Order Comment: Campu s: M Performed By: #### L 500.81414, L500.98640, L500.44463, L500.07652 ####[facility] XBNGMTGDKR9143 [place], [place] [address]Dx# [phone] Chloride molar conc 92 mmol/L Low 98-107 [facility] Comment on above: Order Comment: Campu s: M Performed By: #### L 500.38352, L500.85730, L500.61161, L500.38910 ####[facility] RLPCECWOWT1350 [place], [place] [address]Ua# [phone] CO2 molar conc 29 mmol/L Normal 21-32 [facility] Comment on above: Order Comment: Campu s: M Performed By: #### L 500.24724, L500.55039, L500.85394, L500.11356 ####[facility] VOEDOCMZAZ8094 [place], [place] [address]Zv# [phone] Creatinine mass conc 3.280 mg/dL High 0.670-1.170 [facility] Comment on above: Order Comment: Campu s: M Result Comment: Macrina ents receiving either N-Acetylcysteine (NAC) orMetamizole prior to venipuncture, may have falsely depressedresults. Performed By: #### L 500.16979, L500.61366, L500.34270, L500.40897 ####[facility] DXTNQQKBLU2451 [place], [place] [address]Al# [phone] Glucose mass conc 119 mg/dL High 70-100 [facility] Comment on above: Order Comment: Campu s: M Result Comment: 70-1 00- Normal Fasting; 100-125 Impaired Fasting; greaterthan 126 on more than one result- Diabetes. ADA guidelines.Results may be falsely elevated after the administration ofSulfapyridine.Results may be falsely depressed after the administration ofSulfasalazine. Performed By: #### L 500.88304, L500.74935, L500.84423, L500.86313 ####[facility] ASNHUCDJSI8860 [place], [place] [address]Nz# [phone] Potassium molar conc 5.4 mmol/L High 3.5-5.1 [facility] Comment on above: Order Comment: Campu s: M Performed By: #### L 500.95473, L500.35529, L500.78888, L500.97483 ####[facility] CNEZHCALHN5967 [place], [place] [address]Gv# [phone] Sodium molar conc 129 mmol/L Low 136-145 [facility] Comment on above: Order Comment: Campu s: M Performed By: #### L 500.24807, L500.43671, L500.88391, L500.48290 ####[facility] AOGVNRIROJ8858 [place], [place] [address]Vc# [phone] Urea nitrogen mass conc 64 mg/dL High 7- [facility] Comment on above: Order Comment: Campu s: M Performed By: #### L 500.97100, L500.60660, L500.06388, L500.81985 ####[facility] YXSWHVKAKX0349 [place], [place] [address]Az# [phone] Urea nitrogen/Creatinine mass ratio 20 mg/mg Normal 15- [facility] Comment on above: Order Comment: Campu s: M Performed By: #### L 500.83691, L500.22189, L500.03917, L500.51339 ####[facility] HTEUFSRFES75[address] [place], [place] [address]Pi# [phone] CBCon 07-20-2018 Erythrocyte distribution width Auto Ratio (RBC) 17.5 % High 14.5 [facility] Comment on above: Order Comment: Campu s: M Performed By: #### L 500.84250, L500.09635, L500.03461, L500.48368 ####[facility] ZINIAMRJME23[address] [place], [place] [address]Kd# [phone] Hematocrit Auto Volume Fraction (Bld) 29.6 % Low 41.0-53.0 [facility] Comment on above: Order Comment: Campu s: M Performed By: #### L 500.89457, L500.84626, L500.41456, L500.79324 ####[facility] PGYGXFRWWI1199 [place], [place] [address]Lf# [phone] Hemoglobin mass conc (Bld) 9.4 g/dL Low 13.5-17.5 [facility] Comment on above: Order Comment: Campu s: M Performed By: #### L 500.74508, L500.40676, L500.79024, L500.57088 ####[facility] DPYPJKNTZR3299 [place], [place] [address]Cu# [phone] MCHC Auto mass conc (RBC) 31.8 g/dL Low 32.0-36.0 [facility] Comment on above: Order Comment: Campu s: M Performed By: #### L 500.56355, L500.33589, L500.72746, L500.92155 ####[facility] CUNWTXCMFR8722 [place], [place] [address]Bo# [phone] MCV Auto Entitic volume (RBC) 92.5 fL Normal 80.0-99.0 [facility] Comment on above: Order Comment: Campu s: M Performed By: #### L 500.77549, L500.68080, L500.09361, L500.49753 ####[facility] RYZEVSGXKC3345 [place], [place] [address]Ty# [phone] Nucleated RBC/100 WBC Ratio (Bld) 0.0 % Normal Less than 1 [facility] Comment on above: Order Comment: Campu s: M Performed By: #### L 500.03814, L500.52496, L500.97244, L500.41913 ####[facility] EYHRUUDFOZ400[address] [place], [place] [address]Wy# [phone] Platelet mean volume Auto Entitic volume (Bld) 10.0 fL Normal 9.4-12.4 [facility]: Order Comment: Campu s: M Performed By: #### L 500.01704, L500.64896, L500.08560, L500.56527 ####[facility] GOVCNRRZIM[address] [place], [place] [address]Wz# [phone] Platelets Auto #/vol (Bld) 193 K/CU MM Normal 150-450 [facility] Comment on above: Order Comment: Campu s: M Performed By: #### L 500.22049, L500.11791, L500.85777, L500.89172 ####[facility] [address]FC[address]AS[address] [place] [address]Ar# [phone] RBC Auto #/vol (Bld) 3.20 M/CU MM Low 4.50-6.00 [facility] Comment on above: Order Comment: Campu s: M Performed By: #### L 500.39592, L500.09058, L500.78522, L500.47319 ####[facility] NVKFPACOQB5120 [place], [place] [address]Ee# [phone] WBC Auto #/vol (Bld) 7.4 K/CU MM Normal 4.5-11.0 [facility] Comment on above: Order Comment: Campu s: M Performed By: #### L 500.26519, L500.00947, L500.82855, L500.06473 ####[facility] MOTILUDKCI1451 [place], [place] [address]Wo# [phone] GFR ESTon 07-20-2018 IF AMER 23 ML/MIN Normal [facility] Comment on above: Order Comment: Campu s: M Performed By: #### L 500.64569, L500.18311, L500.28294, L500.83498 ####[facility] NCFYZHYGNQ0254 [place], [place] [address]Ax# [phone] IF non-AFR AMER 19 ML/MIN Normal [facility] Comment on above: Order Comment: Campu s: M Performed By: #### L 500.68722, L500.73469, L500.67787, L500.99816 ####[facility] LTABLCECEQ8075 [place], [place] [address]Zl# [phone] GLUCOSE METERon 07-20-2018 Glucose mass conc 197 mg/dL High 85-125 [facility] Glucose mass conc 155 mg/dL High 85-125 [facility] Glucose mass conc 152 mg/dL High 85-125 [facility] Glucose mass conc 124 mg/dL Normal 85-125 [facility] Clifford Demetrius 07-20-2018 Potassium molar conc 5.8 mmol/L High 3.5-5.1 [facility] Comment on above: Order Comment: Campu s: MIs This Patient Going To Surgery? YSurgery Date: 02/20/18 Performed By: #### L 500.87090, L500.33635, L500.97639, L500.88238 ####[facility] [id number] [place], [place] [address]Xh# [phone] OSMO SERUMon 07-20-2018 OSMO SERUM 297 MOSM/KG Normal 280-300 [facility] Comment on above: Order Comment: Campu s: MIs This Patient Going To Surgery? YSurgery Date: 02/20/18 Performed By: #### L 500.81266, L500.79511, L500.75216, L500.56905 ####[facility] [facility] [id number] [place], [place] [address]Tb# [phone] PBNP TESTon 07-20-2018 Natriuretic peptide B mass conc (Bld) 15050 pg/mL High 0-900 [facility] Comment on above: Order Comment: Campu s: MIs This Patient Going To Surgery? YSurgery Date: 02/20/18 Result Comment: NT-p roBNP results of less than 300 pg/ml effectively rulesout acute congestive heart failure with 99% negativepredictive value. Performed By: #### L 500.29421, L500.85198, L500.46305, L500.65180 ####[facility] [id number] [place], [place] [address]Xp# [phone] PROG IMSon 07-20-2018 Protein mass conc Normal [facility] Clifford Protein mass [facility] Patient Name: MAURI QUINONES1320 [facility] Date of : [address], [place] [address] Unit Number: [id number] Number: [id number] Note-Hospitalist Patient Status: ADM INAttending Doctor: Jensen Peguero DOService Date: 07/20/18 1452Chief ComplaintChief ComplaintRight hip painSubjectiveS: (2 ROS minimum)No chest pain or shortness of breath, no abdominal pain nausea or vomiting.Objective (ROS)Nursing VitalsVital Signs (Last)ResultDate TimePulse Tw2325/24 0802B/P125/7011/24 1422Pnvj90.911/24 1557Kssfw5479/24 2299Iymj3147/24 0802O2 DeliveryNASAL CDBACBP27/22 0440O2 Flow Chrp806/22 0440General AppearanceComfortablePhysi sabrina ExamPhysical Examination NotesNeurological / Psychiatric Alert, Orientation B4MDHYP EOMI, PERRLNeck No JVD, No Enlarged ThyroidRespiratory Normal Breathing Effort, Clear LungsCardiovascular Heart RRR, No M / R / GGastrointestinal Normal Bowel Sounds, Non TenderMusculoskeletal No EdemaSkin No Rash, Warm / DryDiagnostic Data:Medications CurrentSig/SchStart timeLastMedicationDoseRout eStop TimeStatusAdminAl Hydrox/Mg Hydrox/30 LJP2IBQW PRN109/16 1100ACSimethiconePO(MAALOX (ALAMAG)PLUSORAL LIQ)Pvykrmk823 BDFBQADW67/22 9330VE31/24(ECOTRIN TAB.EC)ZM5019Piszhydscydua ne HCl25 IPO8LMDL PRN109/16 1100AC(BENADRYL CAP)PODocusate Euecoqr213 MGQ12H@2099AC109/19(SURFAK CAP)YY6649Jkmxksetg Mesylate2 MGBID109/16 1488QD53/24(CARDURA TAB)AI3249Fnzrduqhov Ydjope26 ZDE17E56/22 8199WH15/24(LOVENOX D.SYR)AG7092Tnqivx Seyabi978 XLMYHN08/24 6578MLTgfowxvnhDI46/25 0959(FERRLECIT AMP)Sodium Rypurufc626 ML(Sodium Chloride0.9%)Fnrfsvjcwf477 MGQHS07/17 2200AC109/18(NEURONTIN CAP)BE4561Nqztmoysxmx Bitart/1 PUQCP8ZYHM PRN109/18 1430ACAcetaminophenPO(NORC O 5-325 TAB)Hydrocodone Bitart/2 CIWFF7YCEH PRN109/18 5008OR76/24AcetaminophenPO 1320(NORCO 5-325 TAB)Hydromorphone HCl2 UAX1JMQH PRN109/16 1100AC(DILAUDID D.SYR)IMInsulin Rppgkwiz41 YQTAIWTD63/22 0677XK70/22(LANTUS SOLOSTAR PEN)GM1797Jxzboan Human LisproSee MtpiRTNQ41/21 5856FP00/24(humaLOG/novoLO G PEN)Insts (1)PL6606Xzomsvtzqci6 JDWSJE3907/17 2200AC109/18(XALATAN 0.005% AJJMAX6900QEDJ)Pantoprazol e Sjfhkq64 OVKDWZSW02/22 9355FT05/24(PROTONIX TAB)HV2090Dibhzlikdjg Lyxzuo46 MGQHS07/17 2200AC109/18(PRAVACHOL TAB)FH8070Empuod Chloride3 QAI9G57/21 7049BR21/24(Sodium MmbzqfcaLP23766.9% FLUSH D.SYR)Sodium Chloride3 MLPRN PRN109/16 1100AC(Sodium ChlorideIV0.9% FLUSH D.SYR)Trimethobenzamide WEk714 FMD5YPCC PRN109/16 1100AC(TIGAN VIAL)IMZolpidem Tartrate5 MGQHSPRN PRN109/16 1100AC(AMBIEN TAB)PODose Instructions:(1)Insulin Human Lispro (humaLOG/novoLOG PEN):2-10 UnitsLab 24hr (CBC/BMP Fishbone)07/20/18 1127:Whole Bld Glucose 152 H11 0833:Troponin I 0.13630 0617:Whole Bld Glucose 41879 0608:[Embedded Image Not Available]Anion Gap 9, Est GFR ( Amer) 23, Est GFR (Non-Af Amer) 19, BUN/Creatinine Ratio 19,Glucose 115 H, Total Calcium 7.6 L109/19/17 0548:[Embedded Image Not Available]Anion Gap 8, Est GFR ( Amer) 23, Est GFR (Non-Af Amer) 19, BUN/Creatinine Ratio 20,Glucose 119 H, Total Calcium 7.8 L, RBC 3.20 L, MCV 92.5, MCHC 31.8 L, RDW 17.5 H, MPV10.0, Nucleated RBCs 0.011 2045:Whole Bld Glucose 75678 1604:Whole Bld Glucose 119Assessment and PlanConclusion1. Urinary retentionAcuteStatus post Butler catheter placement.Patient should be referred to urologist for outpatient voiding trial.2. HyponatremiaAcuteSodium level remained low, sodium in the urine its in the lower side however patientclinically looks euvolemic and does not look dehydrated, awaiting nephrology input.Check urine and serum osmolalities.Check TSH.3. Acute renal failure superimposed on stage 3 chronic kidney diseaseAcuteUltrasound of the kidneys came back normal.Fine Arts Instructor has been consulted.Continue to monitor BMPs4. ArthritisChronicTo the right hip status post surgical intervention.5. Systolic heart failureChronicCompensated at this time, hold diuretics.6. Coronary artery diseaseChronicNo acute issue.7. HypertensionChronicStable blood pressure, avoid hypotension.8. IDDM (insulin dependent diabetes mellitus)ChronicContinue with Lantus and sliding scale insulin.Stay Reason/Anticipated Disch Awaiting Consult, Awaiting Test ResultsDisclaimerThis dictation was created using voice recognition software.Phonetic and/or minor grammatical errors may exist.eSign Date and Sigrid Lynch MD Verified/Reviewed by 07/20/18 1459 [facility] Protein mass conc MTDD Normal [facility] Protein mass conc Normal [facility] THYROID PRO/TSHon 07-20-2018 T3 UP 38.0 % Normal 33.0-40.0 [facility] Comment on above: Order Comment: Kahlil s: MIs This Patient Going To Surgery? YSurgery Date: 02/20/18 Performed By: #### L 500.28140, L500.29106, L500.41576, L500.93741 ####[facility] JBDUIFLPRN8155 [place], [place] [address]Ok# [phone] T4 8.5 UG/DL Normal 4.5-12.1 [facility] Comment on above: Order Comment: Kahlil s: MIs This Patient Going To Surgery? YSurgery Date: 02/20/18 Result Comment: RESU LTS MAY BE FALSELY ELEVATED AFTER THE ADMINISTRATION OFSULFASALAZINE. Performed By: #### L 500.82957, L500.64717, L500.75007, L500.63835 ####[facility] EPDFIOHYRZ64[address] [place], [place] [address]Vu# [phone] Thyrotropin Qn 1.150 UIU/ML Normal 0.358-3.740 [facility] Comment on above: Order Comment: Kahlil s: MIs This Patient Going To Surgery? YSurgery Date: 02/20/18 Result Comment: 3rd generation ultra sensitive TSH Performed By: #### L 500.83796, L500.97116, L500.05551, L500.42689 ####[facility] [id number] [place], [place] [address]Wh# [phone] TROPONIN Ion 07-20-2018 Troponin I.cardiac mass conc 0.020 ng/mL Normal 0.000-0.045 [facility] Comment on above: Order Comment: Kahlil s: MIs This Patient Going To Surgery? YSurgery Date: 02/20/18 Performed By: #### L 550.14732 ####[facility] [id number] [place], [place] [address]Ad# [phone] UR OSMOon 07-20-2018 UR OSMO 237 MOSM/KG Normal 50-1200 [facility] Comment on above: Order Comment: Campu s: MIs This Patient Going To Surgery? YSurgery Date: 02/20/18 Performed By: #### L 600.17145 ####[facility] [id number] [place] [address]Bp# [phone] BMPon 07-19-2018 Anion gap 3 molar conc 7 mmol/L Normal 5-16 [facility] Comment on above: Order Comment: Campu s: M Performed By: #### L 500.13978, L500.73784, L500.50610, L500.23793 ####[facility] FYNWGYJWMV[address] [place] [address]If# [phone] Calcium mass conc 7.6 mg/dL Low 8.5-10.1 [facility] Comment on above: Order Comment: Campu s: M Performed By: #### L 500.17576, L500.58566, L500.44069, L500.27566 ####[facility] WPXUYZHXLN0548 [place], [place] [address]Ji# [phone] Chloride molar conc 92 mmol/L Low 98-107 [facility] Comment on above: Order Comment: Campu s: M Performed By: #### L 500.83503, L500.34068, L500.58444, L500.85729 ####[facility] CMAYYCWVIC2813 [place], [place] [address]Nq# [phone] CO2 molar conc 28 mmol/L Normal 21-32 [facility] Comment on above: Order Comment: Campu s: M Performed By: #### L 500.42128, L500.21958, L500.93635, L500.03928 ####[facility] VVBXUAWAMV1874 [place], [place] [address]Nl# [phone] Creatinine mass conc 3.150 mg/dL High 0.670-1.170 [facility] Clifford Comment on above: Order Comment: Jorgeu s: M Result Comment: Macrina ents receiving either N-Acetylcysteine (NAC) orMetamizole prior to venipuncture, may have falsely depressedresults. Performed By: #### L 500.43986, L500.81782, L500.72353, L500.41404 ####[facility] VFYZCDGRNJ3856 [place], [place] [address]Ck# [phone] Glucose mass conc 73 mg/dL Normal 70-100 [facility] Comment on above: Order Comment: Jorgeu s: M Result Comment: 70-1 00- Normal Fasting; 100-125 Impaired Fasting; greaterthan 126 on more than one result- Diabetes. ADA guidelines.Results may be falsely elevated after the administration ofSulfapyridine.Results may be falsely depressed after the administration ofSulfasalazine. Performed By: #### L 500.75230, L500.84617, L500.11764, L500.83774 ####[facility] CEMXHDKXBS6877 [place], [place] [address]Zg# [phone] Potassium molar conc 5.3 mmol/L High 3.5-5.1 [facility] Comment on above: Order Comment: Jorgeu s: M Performed By: #### L 500.63298, L500.57358, L500.56122, L500.23450 ####[facility] YPZLQYYCIY1705 [place], [place] [address]Gi# [phone] Sodium molar conc 128 mmol/L Low 136-145 [facility] Comment on above: Order Comment: Jorgeu s: M Performed By: #### L 500.55286, L500.82970, L500.14698, L500.88934 ####[facility] LCMRVIWHKS9458 [place], [place] [address]Pd# [phone] Urea nitrogen mass conc 58 mg/dL High 7-26 [facility] Comment on above: Order Comment: Jorgeu s: M Performed By: #### L 500.69829, L500.59656, L500.94688, L500.29672 ####[facility] MSUROJMDDS6909 [place], [place] [address]Ob# [phone] Urea nitrogen/Creatinine mass ratio 19 mg/mg Normal 15-24 [facility] Comment on above: Order Comment: Campu s: M Performed By: #### L 500.45501, L500.99123, L500.91798, L500.35584 ####[facility] [address] [place] [address]Tg# [phone] CBCon 07-19-2018 Erythrocyte distribution width Auto Ratio (RBC) 17.9 % High 11-14.5 [facility] Comment on above: Order Comment: Campu s: M Performed By: #### L 500.15568, L500.61568, L500.04399, L500.91831 ####[address] [address]Zu# [phone] Hematocrit Auto Volume Fraction (Bld) 28.8 % Low 41.0-53.0 [facility] Comment on above: Order Comment: Campu s: M Performed By: #### L 500.30251, L500.24504, L500.19137, L500.69274 ####[facility] VJJFXXGKQS0134 [place], [place] [address]Tv# [phone] Hemoglobin mass conc (Bld) 9.0 g/dL Low 13.5-17.5 [facility] Comment on above: Order Comment: Campu s: M Performed By: #### L 500.44956, L500.03810, L500.07343, L500.85201 ####[facility] RWBZNMCKPF9465 [place], [place] [address]Kc# [phone] MCHC Auto mass conc (RBC) 31.3 g/dL Low 32.0-36.0 [facility] Comment on above: Order Comment: Campu s: M Performed By: #### L 500.07830, L500.17399, L500.54505, L500.91690 ####[facility] YJYYCGAYDM8361 [place], [place] [address]Sw# [phone] MCV Auto Entitic volume (RBC) 92.3 fL Normal 80.0-99.0 [facility] Comment on above: Order Comment: Campu s: M Performed By: #### L 500.43757, L500.44548, L500.01908, L500.13443 ####[facility] DC[address] [place], [place] [address]Ph# [phone] Nucleated RBC/100 WBC Ratio (Bld) 0.2 % Normal Less than 1 [facility] Comment on above: Order Comment: Campu s: M Performed By: #### L 500.71930, L500.84481, L500.74283, L500.22150 ####[address] [address]Wg# [phone] Platelet mean volume Auto Entitic volume (Bld) 9.8 fL Normal 9.4-12.4 [facility] Comment on above: Order Comment: Campu s: M Performed By: #### L 500.56021, L500.27083, L500.46776, L500.34896 ####[address] [address]Pp# [phone] Platelets Auto #/vol (Bld) 188 K/CU MM Normal 150-450 [facility] Comment on above: Order Comment: Campu s: M Performed By: #### L 500.72771, L500.94633, L500.82194, L500.06374 ####[facility] [id number] [place] [address]Cp# [phone] RBC Auto #/vol (Bld) 3.12 M/CU MM Low 4.50-6.00 [facility] Comment on above: Order Comment: Campu s: M Performed By: #### L 500.11767, L500.58873, L500.37391, L500.54911 ####[facility] ZNQEXDARHO8205 [place], [place] [address]Pg# [phone] WBC Auto #/vol (Bld) 9.9 K/CU MM Normal 4.5-11.0 [facility] Comment on above: Order Comment: Campu s: M Performed By: #### L 500.93890, L500.86044, L500.57692, L500.68359 ####[facility] NJOHVMZCQW[address] [place], [place] [address]Jl# [phone] GFR ESTon 07-19-2018 IF AMER 25 ML/MIN Normal [facility] Comment on above: Order Comment: Campu s: M Performed By: #### L 500.57108, L500.30087, L500.75376, L500.20525 ####[facility] NLYJYGLTKZ8344 [place], [place] [address]Ku# [phone] IF non-AFR AMER 20 ML/MIN [facility] Comment on above: Order Comment: Campu s: M Performed By: #### L 500.73445, L500.39169, L500.26079, L500.27376 ####[facility] YELPIHAGVR7221 [place], [place] [address]Gt# [phone] GLUCOSE METERon 07-19-2018 Glucose mass conc 117 mg/dL Normal 85-125 [facility] Glucose mass conc 119 mg/dL Normal 85-125 [facility] Gl[facility] mass conc 124 mg/dL Normal 85-125 [facility] Glucose mass conc 76 mg/dL Low 85-125 [facility] PR[facility] IMSon 07-19-2018 Protein mass conc Normal [facility] Protein mass conc [facility] Patient Name: VALENTE QUINONES [facility] Date of : [address] [address] Unit Number: [id number] Number: [id number] Note-Hospitalist Patient Status: ADM INAttending Doctor: Jensen Peguero DOService Date: 07/19/18 1418Chief ComplaintChief ComplaintRight hip painSubjectiveS: (2 ROS minimum)No chest pain or shortness of breath, no abdominal pain nausea or vomiting, patient feelspretty good and denied any specific symptoms, he continued to have urinary retention andhad a Butler catheter placed.Objective (ROS)Nursing VitalsVital Signs (Last)ResultDate TimePulse Fx1892/ 0730B/P145/7311/ 8837Zwtr85.411/23 7520Sscxw0310 9606Thuo6832 0730O2 DeliveryNASAL KQJUWQK61/22 0440O2 Flow Pkzp558/22 0440General AppearanceComfortablePhysi sabrina ExamPhysical Examination NotesNeurological / Psychiatric Alert, Orientation P0BSGBL EOMI, PERRLNeck No JVD, No Enlarged ThyroidRespiratory Normal Breathing Effort, Clear LungsCardiovascular Heart RRR, No M / R / GGastrointestinal Normal Bowel Sounds, Non TenderMusculoskeletal No EdemaSkin No Rash, Warm / DryDiagnostic Data:Medications CurrentSig/SchStart timeLastMedicationDoseRout eStop TimeStatusAdminAl Hydrox/Mg Hydrox/30 ZPM0LRZU PRN109/16 1100ACSimethiconePO(MAALOX (ALAMAG)PLUSORAL LIQ)Sbefdhi041 HTQOVFJB20/22 5842ZE69/23(ECOTRIN TAB.EC)SQ5664Yvcywihzvpvke ne HCl25 TLC3IZNW PRN109/16 1100AC(BENADRYL CAP)PODocusate Fcphgpb723 MGQ12H@21109/16 2099AC109/18(SURFAK CAP)RW2024Dwgmixsig Mesylate2 MGBID109/16 2099AC109/18(CARDURA TAB)QN6930Hecyeuxjpc Mybadj83 QLI90Z18/22 3942IA43/23(LOVENOX D.SYR)AY6908Gukjhgweeh290 MGQHS07/17 2200AC109/17(NEURONTIN CAP)SR8608Rnhjtyzvgbkro HCl2 VCE8WIVT PRN109/16 1100AC(DILAUDID D.SYR)IMInsulin Yjeunwro78 GJCMUXTB06/22 6876SP66/22(LANTUS SOLOSTAR PEN)BM2505Prpbmfu Human LisproSee PafoEUCY72/21 8693DB09/22(humaLOG/novoLO G PEN)Insts (1)MZ6445Mvxqkuzykqn0 GZSAGS4707/17(XALATAN 0.005% MMTENB5866YZSZ)Pantoprazol e Yuqbaf67 CHPOFTCV31/22 8225EN96/23(PROTONIX TAB)QT0103Fxibvcjekeh Ockbhi88 MGQHS07/17 4951TB13/22(PRAVACHOL TAB)OT6553Qxznjs Chloride3 OTN8Q84/21 6573ZR31/23(Sodium BkeruuxrQN40636.9% FLUSH D.SYR)Sodium Chloride3 MLPRN PRN109/16 1100AC(Sodium ChlorideIV0.9% FLUSH D.SYR)Trimethobenzamide SUi803 UNN5HEZJ PRN109/16 1100AC(TIGAN VIAL)IMZolpidem Tartrate5 MGQHSPRN PRN109/16 1100AC(AMBIEN TAB)PODose Instructions:(1)Insulin Human Lispro (humaLOG/novoLOG PEN):2-10 UnitsLab 24hr (CBC/BMP Fishbone)07/19/18 1140:Ur Random Sodium 22, Ur Random Potassium 32.8, Ur Random Chloride LESS THAN 1140:Urine Color Yellow, Urine Appearance Hazy, Urine pH 5.0, Ur Specific [place] 1.009, UrineProtein 30, Urine Glucose (UA) NEG, Urine Ketones NEGATIVE, Urine Blood SMALL, UrineNitrite NEGATIVE, Urine Bilirubin NEGATIVE, Urine Urobilinogen NEG, Ur Leukocyte Mjxhgyey65, Urine RBC 8 H, Urine WBC 2, Ur Squamous Epith Cells 0, Urine Bacteria TRACE, HyalineCasts 1, Urine Mucus TRACE07/19/18 1105:Whole Bld Glucose 0999007/19/18 0855:Troponin I 0.9051107/19/18 0619:Whole Bld Glucose 76 L109/18/17 0444:[Embedded Image Not Available]Anion Gap 7, Est GFR ( Amer) 25, Est GFR (Non-Af Amer) 20, BUN/Creatinine Ratio 19,Glucose 73, Total Calcium 7.6 L, RBC 3.12 L, MCV 92.3, MCHC 31.3 L, RDW 17.9 H, MPV 9.8,Nucleated RBCs 0.2036:Whole Bld Glucose 305 H11 1613:Whole Bld Glucose 296 HAssessment and PlanConclusion1. Urinary retentionAcuteStatus post Butler catheter placement.Patient should be referred to urologist for outpatient voiding trial.2. HyponatremiaAcuteWorsening with IV normal salin overnight.We will check sodium level in the urine.3. Acute renal failure superimposed on stage 3 chronic kidney diseaseAcuteWorsening kidney function despite IV hydration and holding nephrotoxic medicationdiuretics and VANESSA inhibitors.Patient looks euvolemic and we will need to continue monitoring kidney function.I will consult lottery office manager to assess worsening kidney functionContinue with Butler catheter to avoid obstructive uropathyWe will check urine electrolytes and urine analysisCheck renal ultrasound.4. ArthritisChronicTo the right hip status post surgical intervention.5. Systolic heart failureChronicCompensated at this time, hold diuretics.6. Coronary artery diseaseChronicNo acute issue.7. HypertensionChronicStable blood pressure, avoid hypotension.8. IDDM (insulin dependent diabetes mellitus)ChronicContinue with Lantus and sliding scale insulin.Stay Reason/Anticipated Disch Awaiting Test ResultsDisclaimerThis dictation was created using voice recognition software.Phonetic and/or minor grammatical errors may exist.eSign Date and TimeSigrid Hodge MD Verified/Reviewed by 07/19/18 1424 [facility] PROG.ORTHOon 07-19-2018 Protein mass [facility] Clifford Protein mass [facility] Patient Name: VALENTE QUINONES [employer] Date of : [address] [address] Unit Number: [id number] Number: [id number] Note-Ortho Patient Status: ADM INAttending Doctor: Jensen Peguero DOService Date: 07/19/18 0517Progress Note - OrthoSubjectiveS: (2 ROS minimum)Patient seen and examined. Continues to complain of urinary retention. States that hiship is doing well with only minimal pain. Has been up ambulating without difficulty.ObjectiveNursin g VitalsVital Signs (Last)ResultDate TimePulse Kg9843 0330B/P135/6711 8048Mdlb78.111 7445Xyndq4261/23 8315Enjt1355/23 0330O2 DeliveryNASAL FAZEPHV04/22 0440O2 Flow Zecq290/22 0440Physical ExamGeneral: [Alert and oriented x3, no acute distress]LE: SILT L2-S15/5 strength with DF/PF/EHL2+ distal pulses- calf tendernessDressing clean, dry, intactDiagnostic DataLab 24hr (CBC/BMP Fishbone)07/19/18 0444:[Embedded Image Not Available]Sodium Pending, Potassium Pending, Chloride Pending, Carbon Dioxide Pending, Anion GapPending, BUN Pending, Creatinine Pending, BUN/Creatinine Ratio Pending, Glucose Pending,Total Calcium Pending, RBC 3.12 L, MCV 92.3, MCHC 31.3 L, RDW 17.9 H, MPV 9.8, NucleatedRBCs 0. 2037:Whole Bld Glucose 305 H109/17/17 1613:Whole Bld Glucose 296 H109/17/17 1054:Whole Bld Glucose 293 H109/17/17 0832:Troponin I 0.7852207/18/18 0832:[Embedded Image Not Available]Anion Gap 10, Est GFR ( Amer) 30, Est GFR (Non-Af Amer) 25, BUN/Creatinine Ratio 21, Glucose 259 H, Total Calcium 7.9 L, Iron 58 L, TIBC 330, Iron Saturation 18 L, Jjdqqbrg739.7, RBC 3.64 L, MCV 92.6, MCHC 32.0, RDW 18.1 H, MPV 9.5, Nucleated RBCs 0. 0716:Whole Bld Glucose 212 HAssessment/PlanConclusion 1. ArthritisChronicPostoperat chelly day #2 status post right total hip arthroplastyWeight-bear as tolerated right lower extremityContinue PT/OTContinue DVT prophylaxis and pain controlMedicine is currently managing the patient's urinary retention and acute kidney injuryFrom an orthopedic standpoint patient is doing very well. Will plan for discharge homeonce medically stabilized.On Yaritza 6:16a Jul 18, 2018 RIGOBERTO DOLAN wrotePostop day 1 status post right total hip arthroplastyWeight-bear as tolerated right lower extremityDVT prophylaxis, pain controlA straight cath as needed for urinary retentionPossible discharge home today if doing well with physical therapy and able to void2. Acute renal failure superimposed on stage 3 chronic kidney diseaseAcutePhysician AttestationStatement of AttestationPatient continues to have difficulty with urination and has been straight cathed x3. Irecommend placing a Butler catheter to monitor his ins and outs as well as renal function.Patient is doing well from a hip standpoint. Ambulate in without difficulty. Okay fordischarge from orthopedic standpoint when cleared by medicine.I confirm that I have evaluated the patient, reviewed the history and physical,medications, diagnostic results, physical exam, assessment and plan of care of thepatient.DisclaimerThis dictation was created using voice recognition software.Phonetic and/or minor grammatical errors may exist.eSign Date and TimeDRigoberto sewell DO Verified/Reviewed by 07/19/18 0521Chacorta Carlton DO Normal [facility] TROPONIN Ion 07-19-2018 Troponin I.cardiac mass conc 0.023 ng/mL Normal 0.000-0.045 [facility] Comment on above: Order Comment: Campu s: M Performed By: #### L 500.35176, L500.17020, L500.27711, L500.00116 ####[facility] JQSBIUQPJM9375 [place], [place] [address]Ob# [phone] UA COMPLETEon 07-19-2018 Color Nom (U) Yellow Normal [facility] Comment on above: Order Comment: Campu s: M Performed By: #### L 500.95209, L500.97977, L500.59155, L500.48862 ####[facility] JVZBBGLIQT0077 [place], [place] [address]Ww# [phone] Glucose mass conc (U) Negative Normal [facility] Comment on above: Order Comment: Campu s: M Performed By: #### L 500.40592, L500.24851, L500.76553, L500.86295 ####[facility] ZDMQPHZTQE2393 [place], [place] [address]Ry# [phone] UA APPEARANCE Hazy Normal CLEAR [facility] Comment on above: Order Comment: Campu s: M Performed By: #### L 500.64360, L500.26082, L500.02036, L500.98510 ####[facility] [id number] [place] [address]Od# [phone] UA BILIRUBIN Negative Normal [facility] Comment on above: Order Comment: Campu s: M Performed By: #### L 500.77019, L500.59602, L500.32103, L500.75127 ####[address] [address]Ym# [phone] UA BLOOD SMALL Normal NEGATIVE [facility] Comment on above: Order Comment: Campu s: M Performed By: #### L 500.37835, L500.31425, L500.66263, L500.57569 ####[facility] [address] [place] [address]Es# [phone] UA KETONE Negative Normal [facility] Comment on above: Order Comment: Campu s: M Performed By: #### L 500.94571, L500.88143, L500.80155, L500.85201 ####[facility] [id number] [place] [id number]# [phone] UA LK ESTERASE 75 Normal NEGATIVE [facility] Comment on above: Order Comment: Campu s: M Performed By: #### L 500.53409, L500.05966, L500.39928, L500.30591 ####[facility] [facility] [id number] [place] [address] 299[address]Si# [phone] UA NITRITE Negative Normal NEGATIVE [facility] Comment on above: Order Comment: Campu s: M Performed By: #### L 500.52479, L500.21237, L500.68638, L500.09424 ####[facility] K[address]LFMPMQ[address] [place], [place] [address]Fo# [phone] UA PH 5.0 Normal [facility] Comment on above: Order Comment: Campu s: M Performed By: #### L 500.03306, L500.10335, L500.56653, L500.29541 ####[facility] OPCHEMUWNU0449 [place], [place] [address]Uu# [phone] UA PROTEIN 30 Normal NEGATIVE [facility] Comment on above: Order Comment: Campu s: M Performed By: #### L 500.11311, L500.55071, L500.69477, L500.02137 ####[facility] [id number] [place] [address]Nx# [phone] UA SPEC GRAV 1.009 Normal 1.005-1.030 [facility] Comment on above: Order Comment: Campu s: M Performed By: #### L 500.57480, L500.18088, L500.99339, L500.47788 ####[facility] [id number] [place] [address] 97[address]Qk# [phone] UA UROBILINOGEN Negative Normal [facility] Comment on above: Order Comment: Campu s: M Performed By: #### L 500.01703, L500.11959, L500.47436, L500.16103 ####[facility] N[address] [place] [address]Zh# [phone] UA WBC 2 WBC/HPF Normal 0-5 [facility] Comment on above: Order Comment: Campu s: M Performed By: #### L 500.54528, L500.09361, L500.58858, L500.03632 ####[facility] O[address] [place] [address] 15[address]Nu# [phone] HYALINE CAST 1 /LPF Normal 0-1 [facility] Comment on above: Order Comment: Campu s: M Performed By: #### L 500.37427, L500.13394, L500.95854, L500.94056 ####[facility] OQCZZCBGTB[address] [place], [place] [address]Hk# [phone] MUCUS TRACE Normal [facility] Comment on above: Order Comment: Campu s: M Performed By: #### L 500.63174, L500.91430, L500.84548, L500.92394 ####[facility] [id number] [place] [address] 13714Qk# [phone] SQUAMOUS EPIS 0 EPI/HPF Normal 0-5 [facility] Comment on above: Order Comment: Campu s: M Performed By: #### L 500.68349, L500.51851, L500.09855, L500.86403 ####[address] [address]Eg# [phone] UA BACTERIA TRACE Normal NONE [facility] Comment on above: Order Comment: Campu s: M Performed By: #### L 500.36913, L500.16141, L500.87835, L500.15953 ####[facility] T[address] [place] [address]An# [phone] UA RBC 8 RBC/HPF High 0-3 [facility] Comment on above: Order Comment: Campu s: M Performed By: #### L 500.20710, L500.51580, L500.92067, L500.83789 ####[facility] [id number] [place] [address]Mf# [phone] UR LYTESon 07-19-2018 UR CL RANDOM LESS THAN 15 Normal [facility] Comment on above: Order Comment: Campu s: M Performed By: #### L 500.00373, L500.56325, L500.18658, L500.92585 ####[facility] [id number] [place] [address] 470[address]Or# [phone] UR K RANDOM 32.8 MMOL/L Normal [facility] Comment on above: Order Comment: Campu s: M Performed By: #### L 500.99222, L500.25257, L500.91607, L500.73270 ####[facility] UIZCYPGOQT[address] [place], [place] [address]Hs# [phone] UR NA RANDOM 22 MMOL/L Normal [facility] Comment on above: Order Comment: Campu s: M Performed By: #### L 500.34184, L500.99194, L500.77403, L500.44369 ####[facility] [address] [place] [address]Ah# [phone] BMPon 07-18-2018 Anion gap 3 molar conc 10 mmol/L Normal 5-16 [facility] Comment on above: Order Comment: Campu s: M Performed By: #### L 500.00377, L500.95051, L500.67249, L500.66520 ####[address] [address]Bo# [phone] Calcium mass conc 7.9 mg/dL Low 8.5-10.1 [facility] Comment on above: Order Comment: Campu s: M Performed By: #### L 500.64636, L500.73475, L500.14866, L500.54102 ####[facility] YNUTISTZFS[address] [place], [place] [address]Wk# [phone] Chloride molar conc 93 mmol/L Low 98-107 [facility] Comment on above: Order Comment: Campu s: M Performed By: #### L 500.45642, L500.81682, L500.51236, L500.91073 ####[facility] BJRWVTFLHT17[address] [place], [place] [address]Wi# [phone] CO2 molar conc 28 mmol/L Normal 21-32 [facility] Comment on above: Order Comment: Campu s: M Performed By: #### L 500.94615, L500.11974, L500.50521, L500.44053 ####[facility] [address] [place] [address]Xr# [phone] Creatinine mass conc 2.650 mg/dL High 0.670-1.170 [facility] Comment on above: Order Comment: Jorgeu s: M Result Comment: Macrina ents receiving either N-Acetylcysteine (NAC) orMetamizole prior to venipuncture, may have falsely depressedresults. Performed By: #### L 500.98037, L500.31824, L500.46503, L500.58950 ####[facility] NWLLGBLDYG8735 [place], [place] [address]Ib# [phone] Glucose mass conc 259 mg/dL High 70-100 [facility] Comment on above: Order Comment: Jorgeu s: M Result Comment: 70-1 00- Normal Fasting; 100-125 Impaired Fasting; greaterthan 126 on more than one result- Diabetes. ADA guidelines.Results may be falsely elevated after the administration ofSulfapyridine.Results may be falsely depressed after the administration ofSulfasalazine. Performed By: #### L 500.85873, L500.75119, L500.53921, L500.02754 ####[facility] HVKUINZOQG7915 [place], [place] [address]Xo# [phone] Potassium molar conc 5.1 mmol/L Normal 3.5-5.1 [facility] Comment on above: Order Comment: Campu s: M Performed By: #### L 500.72234, L500.12671, L500.51216, L500.06817 ####[facility] KGNUBEHEYN[address] [place], [place] [address]Gv# [phone] Sodium molar conc 131 mmol/L Low 136-145 [facility] Comment on above: Order Comment: Jorgeu s: M Performed By: #### L 500.05345, L500.77659, L500.92020, L500.79150 ####[facility] IYKCHUBUSN[address] [place], [place] [address]Nk# [phone] Urea nitrogen mass conc 56 mg/dL High 7-26 [facility] Comment on above: Order Comment: Campu s: M Performed By: #### L 500.30407, L500.83931, L500.70715, L500.88571 ####[facility] SFSTHCEFML8990 [place], [place] [address]Bb# [phone] Urea nitrogen/Creatinine mass ratio 21 mg/mg Normal 15-24 [facility] Comment on above: Order Comment: Campu s: M Performed By: #### L 500.57389, L500.32917, L500.13179, L500.08149 ####[facility] AWSBPAJVKB3295 [place], [place] [address]Yc# [phone] CBCon 07-18-2018 Erythrocyte distribution width Auto Ratio (RBC) 18.1 % High 11-14.5 [facility] Comment on above: Order Comment: Campu s: M Performed By: #### L 500.65521, L500.08279, L500.18428, L500.72952 ####[facility] [address] [place] [address]Xc# [phone] Hematocrit Auto Volume Fraction (Bld) 33.7 % Low 41.0-53.0 [facility] Comment on above: Order Comment: Campu s: M Performed By: #### L 500.02106, L500.11961, L500.37150, L500.48803 ####[facility] TEOSVVUGTS[address] [place], [place] [address]Rn# [phone] Hemoglobin mass conc (Bld) 10.8 g/dL Low 13.5-17.5 [facility] Comment on above: Order Comment: Campu s: M Performed By: #### L 500.62640, L500.37859, L500.11879, L500.79943 ####[facility] HCGALKFSMR[address]7 [place], [place] [address]Dl# [phone] MCHC Auto mass conc (RBC) 32.0 g/dL Normal 32.0-36.0 [facility] Comment on above: Order Comment: Campu s: M Performed By: #### L 500.86793, L500.83696, L500.59747, L500.74214 ####[facility] U[address] [place] [address]Sv# [phone] MCV Auto Entitic volume (RBC) 92.6 fL Normal 80.0-99.0 [facility] Comment on above: Order Comment: Campu s: M Performed By: #### L 500.70755, L500.27175, L500.66991, L500.41133 ####[place] [address]86608Ph# [phone] Nucleated RBC/100 WBC Ratio (Bld) 0.1 % Normal Less than 1 [facility] Comment on above: Order Comment: Campu s: M Performed By: #### L 500.36686, L500.33105, L500.53599, L500.88472 ####[address] [address]Pp# [phone] Platelet mean volume Auto Entitic volume (Bld) 9.5 fL Normal 9.4-12.4 [facility] Comment on above: Order Comment: Campu s: M Performed By: #### L 500.26499, L500.74591, L500.00091, L500.40526 ####[address] [address]Fg# [phone] Platelets Auto #/vol (Bld) 210 K/CU MM Normal 150-450 [facility] Comment on above: Order Comment: Campu s: M Performed By: #### L 500.26202, L500.24814, L500.43342, L500.03970 ####[facility] [address] [place] [address]Ho# [phone] RBC Auto #/vol (Bld) 3.64 M/CU MM Low 4.50-6.00 [facility] Comment on above: Order Comment: Campu s: M Performed By: #### L 500.43835, L500.12761, L500.10552, L500.27082 ####[facility] SZZQVUQYDX[address]12 [place], [place] [address]Ln# [phone] WBC Auto #/vol (Bld) 13.5 K/CU MM High 4.5-11.0 [facility] Comment on above: Order Comment: Campu s: M Performed By: #### L 500.05447, L500.44605, L500.59385, L500.49270 ####[facility] OXJMJHBNNQ[address] [place], [place] [address]Ow# [phone] Tom 07-18-2018 FERR 344.7 NG/ML Normal 24.0-388.0 [facility] Comment on above: Order Comment: Campu s: M Performed By: #### L 500.99460, L500.44643, L500.33379, L500.75927 ####[facility] [id number] [place] [address] 388[address]Cs# [phone] GFR ESTon 07-18-2018 IF AMER 30 ML/MIN [facility] Comment on above: Order Comment: Campu s: M Performed By: #### L 500.71752, L500.91221, L500.04700, L500.62629 ####[facility] NXYIMVBMRB[address] [place], [place] [address]Hr# [phone] IF non-AFR AMER 25 ML/MIN [facility] Comment on above: Order Comment: Campu s: M Performed By: #### L 500.86610, L500.61080, L500.70699, L500.27608 ####[facility] XPMIAKMQBJ5818 [place], [place] [address]Ns# [phone] GLUCOSE METERon 07-18-2018 Glucose mass conc 305 mg/dL High 85-125 [facility] Glucose mass conc 296 mg/dL High 85-125 [facility] Glucose mass conc 293 mg/dL High 85-125 [facility] Glucose mass conc 212 mg/dL High 85-125 [facility] Glucose mass conc 245 mg/dL High 85-125 [facility] IRON PANELon 07-18-2018 Iron mass conc 58 ug/dL Low 65-175 [facility] Comment on above: Order Comment: Kahlil Burgess Result Comment: Macrina ents treated with metal-binding drugs (e.g.deferoxamine)may have depressed iron values, as chelated iron may notproperly react in the Siemens iron assay. Performed By: #### L 500.69811, L500.35708, L500.92343, L500.64693 ####[facility] FPXMDKYCZU2538 [place], [place] [address]Nq# [phone] IRON SAT 18 % Low 30-44 [facility] Comment on above: Order Comment: Kahlil Burgess Performed By: #### L 500.01108, L500.16975, L500.09950, L500.24678 ####[facility] WH[address]UTMOYC[address] [place], [place] [address]Uq# [phone] TIBC 330 UG/DL Normal 221-481 [facility] Comment on above: Order Comment: Kahlil Burgess Performed By: #### L 500.81952, L500.32258, L500.64182, L500.42427 ####[facility] BBKDYKFJSK[address]49 [place], [place] [address]Wc# [phone] OTARon 07-18-2018 OT Assessment Report Normal [facility] OTAR Occupational TherapyInpatient EvaluationMedical Diagnosis: Removal of hardware R LE, KEMAR R hip lateral approach by 07/17/18OCCUPATIONAL PROFILE AND HISTORYTherapy Diagnosis:Rank Code Description1 R26.81 Unsteadiness on feet2 Z74.1 Need for assistance with personal careDemographics:Age: 62YGender: MalePrimary Language: EnglishPreferred Language: EnglishReferring Service/Team: OrthopedicsPast Medical History: Past Medical HistoryCAD with three-vessel coronary artery bypass graft, diabetes, hypertension,non-STEMI, systolic congestive heart failure with an EF of 30%, anemia, chronicrenal failure stage III, glaucoma, valvular heart disease, cardiomyopathy,pulmonary hypertension.Past Surgical HistoryCABG x3, arthroscopic, femur surgery, ORIF.History of Present Illness:Date of Surgery: 07/17/18Additional Information: Patient is a 62-year-old male patient of , past medical history CAD with three-vessel coronary artery bypass graft,diabetes, hypertension, non-STEMI, congestive heart failure with an EF of 45%who presents to [facility] July 17 for a removal of hardware and right total hiparthroplasty by Dr. Peguero. Patient states he has been having trouble with hishead for a year tried physical therapy, injections, and qfio-ibb-gblocco painmedication with no relief. He has been having difficulty getting in and out ofa car putting on his socks and shoes secondary to the right hip pain andstiffness. Due to failed conservative management patient elected for surgicalrepair. Patient reports mild postoperative pain. He denies chest pain,dyspnea, dizziness, fever, chills, nausea, or vomiting. He has been asked tosee for medical management.Date of Admission: 07/17/2018 6:00:00 AMRehabilitation Precautions/Restrictions:W BAT RLE, Lateral hip precautionsImaging/Testing Results from Chart: N/A [facility] PATIENT NAME: VALENTE QUINONES [facility] Dr. Bartlett MEDICAL REC #: [id number], [place] [address] DATE: 07/17/18ERVICE DATE: 07/18/18Occupational Therapy Assessment ATTENDING PHY: Jensen Peguero Level of Functioning:Self Care: Patient completed the activities by him/herself, with or without anassistive device, with no assistance from a helper.Functional Cognition: Patient completed the activities by him/herself, with orwithout an assistive device, with no assistance from a helper.Independent with mobility and ADLs w/out AD, denies falls, shared house workPatient/Caregiver Goals: Patient's functional goals: Go homePain: Patient currently has pain.Location: R hipType: AcuteQuality: Aching.Pain Scale: Visual Analog (VAS).Patient reports a pain level of 7 out of 10.Patient's acceptable level of pain 3 out of 10.Pain does not interfere with any activity at this time.Pain is alleviated by: pain meds, icePain is exacerbated by: movementInterventions: Repositioned patient.Home Environment: Patient lives with , who is able to assist patient atdischarge. Patient lives in a single family home. Home is three levels. Patientis not required to manage stairs within the home. First floor full bathroomsetup available. There are 2 steps to enter the home, with grab barEquipment Owned: tub shower combo w/sliding doors, tub bench, ww, cane, raisedtoilet seatMarital Status: MSocial History:Children: It is unknown whether patient has childrenEmployment Status: N/ARecreational Activities/Hobbies: N/AOBJECTIVE/OCCUPATIONAL PERFORMANCEActivities of Daily LivingCurrent Status Previous StatusADLsFeeding Independent -Grooming Modified independent -Bathing-UE Modified independent -Bathing-LE Supervision -Dressing-UE Modified independent -Dressing-LE Minimal assistance -Toileting Supervision -Pt required min A to thread pants and for sock R LE. Pt reports willassist. Pt did demo good understanding of and use of sock aid to assist howeverpt does not plan to use at home [facility] PATIENT NAME: MAURI QUINONES[address] [facility] REC #: [id number], [place] [address] DATE: 07/17/18ERVICE DATE: 07/18/18Occupational Therapy Assessment ATTENDING PHY: Sudhir,Jensen L DOAM-PAC Daily Activities:Putting On/Taking Off Lower Body Clothing: A little help neededBathing:: A little help neededToileting: A little help neededPutting On/Taking Off Upper Body Clothing: No help neededGrooming: No help neededEating a Meal: No help neededRaw Score = 21 , AM-PAC t-Scale Score = 44.27 and G-Code Modifier = CJFunctional Mobility:Bed Mobility: All bed mobility including supine to sit, rolling,scooting. requiring stand by assistance. HOB elevated, exit bed L side, v/c fortechnique, no physical assistance requiredTransfers: Patient transferred sit to/from stand requiringsupervision. min v/c for proper hand placement and techniqueLocomotion/Gait/A mbulation: Patient was supervision withgait/ambulation for 200' . Patient requires the following assistive device(s):Rolling walker. pt demo fair reciprocal gait, no overt LOBRange of MotionUpper Extremity:Grossly within functional limitsStrengthUpper Extremity:Grossly within functional limitsBalance:Dynamic balance in a seated position is good. w/in precautionsDynamic balance in a standing position is good.Tone/Spasticity: No relevant impairments.Sensation: Grossly intact.Fine Motor Coordination: Fine motor coordination was not assessed.Gross Motor Coordination: Upper extremity gross motor coordination is intact.Edema: Edema is present.Location: Right lower extremity edema- Minimal.Location:Lower Extremity Function: R LE pt demo fair post op ROM and wb tolerance, allprecautions maintainedVision: Within functional limits.Cognition: Within functional limits.Perceptual Skills: Within functional limits.Psychosocial: Within normal limitsInterventions: Evaluation LOW Complexity [facility] PATIENT NAME: COREY QUINONES0 [facility] Campustodd [address]lett MEDICAL REC #: [id number], [place] [address] DATE: 07/17/18ERVICE DATE: 07/18/18Occupational Therapy Assessment ATTENDING PHY: Jensen Peguero Care/Home Management: UB and LB dressing, instruction in use of AEand follow through w/precautions and safetyPain Reassessment: No significant change in pain during session.Education:The patient's preferred learning method is: Explanation, DemonstrationBarriers to Learning: No barriersLearning Needs: Precautions.Plan of care.Rehabilitation techniques and procedures.Safety.Function al activities/mobility.Equipm ent.Education Provided: Precautions. Plan of care. Activities of daily living. Bedmobility. Functional transfers. Equipment. Safety.Audience: Patient.Mode: Explanation. Demonstration.Response: Verbalized understanding. Demonstrated skill.ASSESSMENTClinical Performance Deficits: Impaired instrumental ADLs, Impaired functionalmobilityEquipmen t Recommended: Hip kitRehabilitation Potential: Not applicableMotivation/Commi tment to Therapy: Not applicable.Response to Evaluation: Pt tolerated OT assessment and treatment well. Pt demono increase in pain, no fatigue and vitals WFL. Pt performed transfer andmobility tasks at supv level and only required minimal A for LB self care. Ptdemo good understanding and follow through w/precautions and safety. No furtherOT needed. Recommend home w/supv upon d/cActivity/Participation Problem List and Goals: No activity/participationlimi tations.Treatment Goals: Not applicable.PLANTreatment Frequency, Duration and Interventions: Occupational Therapy servicesare discontinued at this time secondary to: No need for skilled therapyintervention at this time.Recommended Occupational Therapy Follow Up: Upon acute care discharge, thefollowing is currently recommended:Home exercise program.Recommended Consults: None currently.Development of Plan of Care: Patient participated in plan of care developmenttoday. [facility] PATIENT NAME: VALENTE QUINONES [facility] Dr[address] [facility] REC #: [id number], [place] [address] DATE: 07/17/18ERVICE DATE: 07/18/18Occupational Therapy Assessment ATTENDING PHY: Jensen Peguero DOIf there are any questions regarding this service, please contact the AcuteTherapy Department at extension [phone] WILL BE TRANSFERRED TO THE (CHOICE OF ACUTE OR REHAB) OCCUPATIONALTHERAPISTComm unication to Nursing: No updates at this time.Location of Patient at End of Therapy Session: In chair, call light within reachServices:Total Billed: 15 minutes (Timed: 15, Untimed: 0)15.00 Timed: [46844] ADL-HOME MANAGEMENT EA 15 MIN0.00 Untimed: [41699] OT-EVALUATION LOW COMPLEXITY0.00 Untimed: [] OT Evaluation ORDERSigned by: Nimco Unger, 07/18/2018 13:36:05 [facility] PATIENT NAME: VALENTE QUINONES [facility] Dr. [address] MEDICAL REC #: [id number], [place] [address] DATE: 07/17/18ERVICE DATE: 07/18/18Occupational Therapy Assessment ATTENDING MARIE: Jensen Peguero DO [facility] PROG [facility] 07-18-2018 Protein mass [facility] Protein mass [facility] Patient Name: VALENT[facility] QUINONES [facility] Date of : [address] [address] Unit Number: [id number] Number: [id number] Note-Hospitalist Patient Status: ADM INAttending Doctor: Jensen Peguero DOService Date: 07/18/18 1418Chief ComplaintChief ComplaintRight hip painSubjectiveS: (2 ROS minimum)Feels very stable, continued to have right hip pain but patient is not making big problemabout it, he continued to have urine retention requiring straight cath and patient said hehad similar experience when he had his open heart surgery and he required Butler catheterfor 1 week, bladder scan are not showing more than 270 mL of urine since last night, hiscreatinine was noted to be very elevated comparing to the baseline and his sodium is 131,patient hemodynamically stable but I think he should stay in the hospital for worseningkidney function and urinary retention.Objective (ROS)Nursing VitalsVital Signs (Last)ResultDate TimePulse Wx5930 1140B/P134/6107/18 8151Fnop86.8109/17 2551Mdmaj5722/22 2412Qvly3150/22 1140O2 DeliveryNASAL RXJFLZX16/22 0440O2 Flow Ctiz280/22 0440General AppearanceComfortablePhysi sabrina ExamNeurological / Psychiatric Alert, Orientation [id number] EOMI, PERRLNeck No JVD, No Enlarged ThyroidRespiratory Normal Breathing Effort, Clear LungsCardiovascular Heart RRR, No M / R / GGastrointestinal Normal Bowel Sounds, Non TenderMusculoskeletal No EdemaSkin No Rash, Warm / DryDiagnostic Data:Medications CurrentSig/SchStart timeLastMedicationDoseRout eStop TimeStatusAdminAl Hydrox/Mg Hydrox/30 MQU5ZIWA PRN109/16 1100ACSimethiconePO(MAALOX (ALAMAG)PLUSORAL LIQ)Qoowdvz216 OAJMPSBJ38/22 3915CL10/22(ECOTRIN TAB.EC)XB8221Hvyskqaycihlg ne HCl25 ZTF9OZOY PRN109/16 1100AC(BENADRYL CAP)PODocusate Sevqqpc557 MGQ12H@2099AC109/17(SURFAK CAP)LB1640Mdbudfthu Mesylate2 MGBID109/16 2099AC109/17(CARDURA TAB)AK8986Tmouyangwc Wdtnfg66 DXG43G92/22 0191RE49/22(LOVENOX D.SYR)GR7791Moldjqodmk944 MGQHS07/17 2200AC(NEURONTIN CAP)POHydromorphone HCl2 DCU5WRMP PRN109/16 1100AC(DILAUDID D.SYR)IMInsulin Lomcajod25 LVZBHFOG29/22 2200AC(LANTUS SOLOSTAR PEN)SCInsulin Human LisproSee KolzUQMZ88/21 5844NU87/22(humaLOG/novoLO G PEN)Insts (1)TK1532Vnkvlkuh Ringer's1,000 CXJIOT92/21 3543LU34/21(Lactated Ringers)IV07/19 68008867Kouxkmtnbxx8 ANTJEN84/21 2200AC(XALATAN 0.005% OPTHOUDROP)Oxycodone/1 SWFQCM5UJTG PRN109/16 1100ACAcetaminophenPO(perc oCET-5/325 TAB)Oxycodone/2 OJYANG7QZRR PRN109/16 3841GD18/22AcetaminophenPO 0850(percoCET-5/325 TAB)Pantoprazole Emmrgv72 LIBLSFQL88/22 5001EG04/22(PROTONIX TAB)HK3284Ogvccgrrjqp Fttodz77 MGQHS07/17 2200AC(PRAVACHOL TAB)POSodium Chloride1,000 MLONCE ONE07/18 0283CF38/22(Sodium JjiuyjddZJ42/23 438582031.9%)Sodium Chloride3 OUS1A17/21 1400AC(Sodium ChlorideIV0.9% FLUSH D.SYR)Sodium Chloride3 MLPRN PRN109/16 1100AC(Sodium ChlorideIV0.9% FLUSH D.SYR)Trimethobenzamide XLp225 WZN1GFRX PRN109/16 1100AC(TIGAN VIAL)IMZolpidem Tartrate5 MGQHSPRN PRN109/16 1100AC(AMBIEN TAB)PODose Instructions:(1)Insulin Human Lispro (humaLOG/novoLOG PEN):2-10 UnitsLab 24hr (CBC/BMP Fishbone)07/18/18 1054:Whole Bld Glucose 293 H109/17/17 0832:Troponin I 0.9846407/18/18 0832:[Embedded Image Not Available]Anion Gap 10, Est GFR ( Amer) 30, Est GFR (Non-Af Amer) 25, BUN/Creatinine Ratio 21, Glucose 259 H, Total Calcium 7.9 L, Iron 58 L, TIBC 330, Iron Saturation 18 L, Xziysgbm995.7, RBC 3.64 L, MCV 92.6, MCHC 32.0, RDW 18.1 H, MPV 9.5, Nucleated RBCs 0. 0716:Whole Bld Glucose 212 H11 2158:Whole Bld Glucose 245 HAssessment and PlanConclusion1. Urinary retentionAcuteContinue to monitor bladder scans every 6 hours, straight cath when urine residual greaterthan 250 mL.If no improvement within the next 24 hours, Butler catheter should be placed for short-termand patient need to follow-up with urologist as an outpatient.2. HyponatremiaAcuteSuspected related to diuretics and mild volume depletion.We will give 1 L of IV fluid and recheck BMP in a.m.3. Acute renal failure superimposed on stage 3 chronic kidney diseaseAcuteWorsening creatinine could be related to volume depletion postop with diuretics usehowever cannot rule out obstructive uropathy from urinary attention.We will continue monitoring bladder scans and challenge the patient's with hydration andrepeat BMP in a.m.Continue holding all nephrotoxic medication and diuretics.4. ArthritisChronicTo the right hip status post surgical intervention.5. Systolic heart failureChronicCompensated at this time, hold diuretics.6. Coronary artery diseaseChronicNo acute issue.7. HypertensionChronicStable blood pressure, avoid hypotension.8. IDDM (insulin dependent diabetes mellitus)ChronicContinue with Lantus and sliding scale insulin.Stay Reason/Anticipated Disch Awaiting Test ResultsDisclaimerThis dictation was created using voice recognition software.Phonetic and/or minor grammatical errors may exist.eSign Date and TimeSigrid Hodge MD Verified/Reviewed by 07/18/18 1427 [facility] Clifford PROG.ORTHOon 07-18-2018 Protein mass [facility] Clifford Protein mass [facility] Patient Name: VALENTE QUINONES [employer] [place] Date of : [address] [address] Unit Number: [id number] Number: [id number] Note-Ortho Patient Status: ADM INAttending Doctor: Jensen Peguero DOService Date: 07/18/18 0612Progress Note - OrthoSubjectiveS: (2 ROS minimum)Patient seen and examined. He is complaining of urinary retention at this time. His beenunable to void since surgery. He has been straight cathed one time. Pain is wellcontrolled at this time. He has been up and ambulating without difficulty. Denies anyfevers, chills, chest pain, shortness of breath. Tolerating diet wellObjectiveNursing VitalsVital Signs (Last)ResultDate TimePulse Im5224/22 0015O2 DeliveryNASAL IXOIOZK65/22 0015O2 Flow Ufyl500/22 0015B/P135/7011 0103Jhyh35.611 5303Aicsr7832/22 2915Jkay2596/22 0010Physical ExamGeneral: Alert and oriented x3, no acute distressLE: SILT L2-S15/5 strength with DF/PF/EHL2+ distal pulses- calf tendernessDressing clean, dry, intactDiagnostic DataLab 24hr (CBC/BMP Fishbone)07/17/18 2158:Whole Bld Glucose 245 H109/16/17 1323:Whole Bld Glucose 134 H109/16/17 0800:Whole Bld Glucose 98779/ 0721:[Embedded Image Not Available]Assessment/PlanC onclusion1. ArthritisChronicPostop day 1 status post right total hip arthroplastyWeight-bear as tolerated right lower extremityDVT prophylaxis, pain controlA straight cath as needed for urinary retentionPossible discharge home today if doing well with physical therapy and able to voidPhysician AttestationStatement of AttestationI confirm that I have evaluated the patient, reviewed the history and physical,medications, diagnostic results, physical exam, assessment and plan of care of thepatient.DisclaimerThis dictation was created using voice recognition software.Phonetic and/or minor grammatical errors may exist.eSign Date and TimeDurRigoberto lynne DO Verified/Reviewed by 07/18/18 0616Mac Shipman DO [facility] Shea 07-18-2018 PT Assessment Report [facility] PTAR Physical TherapyInpa tient EvaluationMedical Diagnosis: R hip removal of hardware and THRTherapy Diagnosis:Rank Code Description1 R26 Abnormalities of gait and mobility2 M62.81 Muscle weakness (generalized)Demographics: Age: 62YGender: MalePrimary Language: EnglishPreferred Language: EnglishReferring Service/Team: OrthopedicsPast Medical History: Past Medical HistoryCAD with three-vessel coronary artery bypass graft, diabetes, hypertension,non-STEMI, systolic congestive heart failure with an EF of 30%, anemia, chronicrenal failure stage III, glaucoma, valvular heart disease, cardiomyopathy,pulmonary hypertension.Past Surgical HistoryCABG x3, arthroscopic, femur surgery, ORIF.History of Present Illness:Date of Surgery: 07/17/18Additional Information: Patient is a 62-year-old male patient of , past medical history CAD with three-vessel coronary artery bypass graft,diabetes, hypertension, non-STEMI, congestive heart failure with an EF of 45%who presents to [facility] July 17 for a removal of hardware and right total hiparthroplasty by Dr. Peguero. Patient states he has been having trouble with hishead for a year tried physical therapy, injections, and pvej-zoh-zyyffry painmedication with no relief. He has been having difficulty getting in and out ofa car putting on his socks and shoes secondary to the right hip pain andstiffness. Due to failed conservative management patient elected for surgicalrepair. Patient reports mild postoperative pain. He denies chest pain,dyspnea, dizziness, fever, chills, nausea, or vomiting. He has been asked tosee for medical management.Date of Admission: 07/17/2018 6:00:00 AMRehabilitation Precautions/Restrictions:W BAT RLE (lateral hip precautions, Sudhir)Imaging/Testing Results from Chart: N/ASUBJECTIVEPrior Level of Functioning:Indoor Mobility: Patient completed the activities by him/herself, with or [facility] PATIENT NAME: VALENTE QUINONES [facility] Dr. Bartlett MEDICAL REC #: [id number], [place] [address] DATE: 07/17/18ERVICE DATE: 07/18/18Physical Therapy Assessment Report ATTENDING PHY: Jensen Pegueroout an assistive device, with no assistance from a helper.Stairs: Patient completed the activities by him/herself, with or without anassistive device, with no assistance from a helper.Independent with mobility and ADLsPrior Device Use:ZluopsjomnjHG209. Prior DeviceWalker YesPatient/Caregiver Goals: Patient's functional goals: Go homePain: Patient currently has pain.Location: R hipType: AcuteQuality: Aching.Pain Scale: Visual Analog (VAS).Patient reports a pain level of 6 out of 10.Patient's acceptable level of pain 3 out of 10.Interferes with physical activity.Pain is alleviated by: medicationPain is exacerbated by: standingInterventions: Repositioned patient.Home Environment: Patient lives with , who is able to assist patient atdischarge. Patient lives in a single family home. Home is single level. Patientis not required to manage stairs within the home. First floor full bathroomsetup available. There are 1 steps to enter the home, with no hand railings.There is no ramp available to enter home.Equipment Owned: walker, but significant use and needs replacementSocial History: Marital Status: marriedChildren: It is unknown whether patient has childrenEmployment Status: N/ARecreational Activities/Hobbies: N/AOBJECTIVECognitive ScreenResponsiveness: Alert.Orientation: Oriented to person, place, time, and situation.Following Commands: Patient is able to follow 3-step commands.Range of MotionUpper Extremity: Grossly within functional limitsLower Extremity: Not within functional limits LLE WFL, RLE: WFL considering hipprecautionsStrengthUppe r Extremity: Grossly within functional limitsLower Extremity: Not within functional limits LLE WFLRLE: Hip flexion 2+/5, hip abduction not assessed, knee 4/5, ankle 5/5 [facility] PATIENT NAME: VALENTE QUINONES [facility] Dr. [address] [facility] REC #: [id number], [place] [address] DATE: 07/17/18ERVICE DATE: 07/18/18Physical Therapy Assessment Report ATTENDING PHY: Jensen Peguero DOTone/Spasticity: No relevant impairments.Sensation: Grossly intact.Balance:Static balance in a seated position is good.Dynamic balance in a seated position is good.Static balance in a standing position is fair.Dynamic balance in a standing position is fair.Therapeutic/Functiona l Activities:Bed Mobility: Pt reports no issues with bed mobility and havingalready performed with OT, deferring performance during PTTransfers: Patient transferred sit to/from stand with modifiedindependence. use of BUE, increased timeLocomotion/Gait/Ambula tion: Patient was modified independent withgait/ambulation for 150' . Patient requires the following assistive device(s):Rolling walker. slow speed, shuffling steps, antalgic gait with WB on the RLEGait Deviations:Stairs: Patient was requiring supervision for 1 . Patient used thefollowing equipment: Rolling Walker.AM-PAC Basic Mobility:Turning Over in Bed: A little difficultySitting/Standing Chair with Arms: No difficultyLying on Back to Sitting on Side of Bed: A little difficultyMoving To/From Bed to Chair: No help neededWalking in Hospital Room: No help neededClimbing 3-5 Steps with Railing: A little help neededRaw Score = 21 , AM-PAC t-Scale Score = 50.25 and G-Code Modifier = CJVital Signs:Not assessed.Interventions: Evaluation LOW Complexity No treatment provided today.Pain Reassessment: No significant change in pain during session.Education:The patient's preferred learning method is: ExplanationBarriers to Learning: Acuity of illnessLearning Needs: Precautions.Pain management.Plan of care.Rehabilitation techniques and procedures.Safety.Function al activities/mobility.Educat ion Provided: Precautions. Pain management. Plan of care. Rehab techniquesand procedures. HEP, lateral hip precautions, mobility precautions, stairtraining Safety issues and interventions. Fall protocol. Functional transfers. [facility] PATIENT NAME: VALENTE QUINONES [facility] Dr. Bartlett MEDICAL REC #: [id number], [place] [address] DATE: 07/17/18ERVICE DATE: 07/18/18Physical Therapy Assessment Report ATTENDING PHY: Jensen Peguero DOAudience: Patient.Mode: Explanation.Response: Verbalized understanding.ASSESSMENTPr oblem List: Decreased strength, Impaired ambulation, Impaired stair/curbnegotiationStren gths: Independent premorbid functionRehabilitation Potential: Not applicableMotivation/Commi tment to Therapy: Not applicable.Response to Evaluation: The patient is a pleasant 62 y.o. male admitted now s/premoval of R hip hardware and R THR with lateral precautions. Strength wasimpaired as listed below. He deferred bed mobility, reporting independence whenperforming during OT session. Transfer to standing was performed independently,then ambulation 150' with WW and 1 stair negotiation with supervision. Thepatient is clear for D/C home from PT standpoint with OPPT.Activity/Participatio n Problem List and Goals:Functional Impairment: Changing and Maintaining Body PositionModifier: K6872-FR (at least 20%, but less than 40% impaired, limited, orrestricted)Goal: cGoal Modifier: T1752-DZ (at least 20%, but less than 40% impaired, limited, orrestricted)Discharge Status for Changing and Maintaining Body Position: ResolvedFunctional Impairment Discharge Modifier: P6916-GF (at least 20%, but less than40% impaired, limited, or restricted)Treatment Goals: Not applicable.PLANTreatment Frequency, Duration and Interventions: Physical Therapy services arediscontinued at this time secondary to: Pt has met all goals necessary for D/Chome. Recommend outpatient PT to address further impairments.Recommended Physical Therapy Follow Up: Upon acute care discharge, the followingis currently recommended: Outpatient Physical Therapy.Recommended Equipment: Rolling walker. .Recommended Consults: None currently.Development of Plan of Care: Patient participated in plan of care developmenttoday.If there are any questions regarding this service, please contact the AcuteTherapy Department at extension [phone] to Nursing:Walking: +1 and WW [facility] PATIENT NAME: TED QUINONESREY[address] [facility] REC #: [id number], [place] [address] DATE: 07/17/18ERVICE DATE: 07/18/18Physical Therapy Assessment Report ATTENDING PHY: Jensen Peguero DOLocation of Patient at End of Therapy Session: In chair, call light within reachServices:Total Billed: 0 minutes (Timed: 0, Untimed: 0)0.00 Untimed: [25699] PT-EVALUATION LOW COMPLEXITY0.00 Untimed: [] PT Evaluation ORDER0.00 Untimed: [G8981] PT-Changing and Maintaining Body Position-CJ0.00 Untimed: [G8982] IM-Nfkr-Cynrzaxo and Maintaining Body Position-CJ0.00 Untimed: [G8983] GC-FJ-Hecamiyu and Maintaining Body Position-CJSigned by: Scott Israel, 07/18/2018 09:29:20 [facility] PATIENT NAME: TED QUINONESREY[address] MEDICAL REC #: [id number], [place] [address] DATE: 07/17/18ERVICE DATE: 07/18/18Physical Therapy Assessment Report ATTENDING PHY: Jensen Peguero DO Normal [facility] Clifford TROPONIN Ion 07-18-2018 Troponin I.cardiac mass conc 0.023 ng/mL Normal 0.000-0.045 [facility] Comment on above: Order Comment: Kahlil s: M Performed By: #### L 500.83991, L500.29859, L500.65395, L500.99777 ####[facility] [id number] [place], [place] [address]Nr# [phone] CRon 07-17-2018 CR DATE OF CONSULTATION : 07/20/2018REASON FOR CONSULTATION: Acute kidney injury.HISTORY OF PRESENT ILLNESS: This is a 62-year-old hypertensive gentleman with nohistory of renal problems in the past, who underwent an elective right hip totalarthroplasty on July 17. Postoperatively he has done well from a surgerystandpoint. Serum creatinine from 1.4 on admission has slowly risen to 3.3 thismorning for which a nephrology consultation has been requested. Given GARRET,lisinopril was discontinued yesterday. Likewise lactated Ringers was discontinuedyesterday for a potassium of 5.4. Apparently he had acute urinary retention forwhich a Butler catheter was placed; it drained 700 mL right away. Hemodynamically hehas been relatively stable. Good urine output.Presently resting comfortably in no distress. Denies chest pain, shortness ofbreath, nausea or vomiting. He did have an episode of emesis yesterday. States oralintake has been stable. No recent NSAIDs or IV contrast exposure.PAST MEDICAL HISTORY:1. Hypertension.2. Coronary artery disease status post CABG.3. Diabetes mellitus.4. Congestive heart failure.5. Possible CKD 3.6. Cardiomyopathy.7. Pulmonary hypertension.8. Recent hip surgery.ALLERGIES: LYRICA.SOCIAL HISTORY: Denies smoking or alcohol.FAMILY HISTORY: Noncontributory.REVIEW OF SYSTEMS: As above.MEDICATIONS AT HOME: Included:1. Aspirin.2. Coreg.3. Celecoxib.4. Cardura.5. Lasix.6. Neurontin.7. Insulin.8. Lisinopril. [facility] PATIENT NAME: VALENTE QUNIONES [facility] Dr. Bartlett MEDICAL REC #: [id number], [place] [address] DATE: 07/17/18DISCHARGE DATE:CONSULTATION REPORT ATTENDING PHY: Jensen Peguero DO9. Metolazone.10. Pravastatin.11. Tramadol.CURRENT MEDICATIONS: Include:1. Hydrocodone.2. Insulin.3. Lovenox.4. Aspirin.5. Protonix.6. Neurontin.7. Pravastatin.8. Cardura.LABORATORY DATA PERTINENT FROM THIS MORNING: Sodium 128, potassium 5.4, chloride 92,CO2 28, BUN 64, creatinine 3.3. total white count 7000, hemoglobin 9.4, agnkmbnkev16. Urinalysis notes trace protein, small blood, negative nitrites, sodium 22, urinechloride less than 15. Renal ultrasound unremarkable.PHYSICAL EXAMINATION:Vital signs: Temperature 99.9, heart rate 67, blood pressure 125/70. Urine myxcpj011 mL overnight.HEENT: Unremarkable.Lungs: Slightly decreased at bases.Cardiovascular: Regular.Lower extremities: No edema.IMPRESSION:1. Acute kidney injury, likely prerenal etiology, exacerbated by diuretics and ACEinhibitors.2. Hyperkalemia, mild, secondary to no. 1, and potassium supplementation.3. Hyponatremia.4. Anemia.5. Acute urinary retention, status post Butler catheter placement.6. Status post right hip total arthroplasty.RECOMMENDATIO NS:1. Agree with workup ordered including renal ultrasound.2. Check chest x-ray to evaluate lung smith. IV fluids, isotonic saline unlesschest x-ray dictates otherwise.3. Agree with discontinuing lisinopril.4. Agree with discontinuing lactated Ringers.5. Low potassium diet. Recheck potassium later today. Consider Kayexalate ifneeded.6. Avoid nephrotoxins and hypotension. Dose all medications appropriately fordecreased GFR. [facility] PATIENT NAME: VALENTE QUINONES Jason [address]lett MEDICAL REC #: [id number], [place] [address] DATE: 07/17/18DISCHAR DATE:CONSULTATION REPORT ATTENDING PHY: Jensen Peguero. Intakes and outputs and daily lab.I thank you for giving me the opportunity to participate in the care of the patient. Pramod DYLAN Sullivan/[id number]: 07/20/2018 10:35DT: 07/20/2018 11:07SSI File#: [id number] #: [id number]/Reviewed by07/22/18 1539 MARIA EUGENIA [facility] PATIENT NAME: VALENTE QUINONES [address] MEDICAL REC #: [id number], [place] [address] DATE: 07/17/18DISCHAR DATE:CONSULTATION REPORT ATTENDING PHY: [facility] DATE OF CONSULTATION : 07/21/2018REASON FOR CONSULTATION: Dialysis management.HISTORY OF PRESENT ILLNESS: This is an 82-year-old hypertensive, diabetic lady withend-stage renal disease maintains hemodialysis via left upper extremity AV graftwhich presented to the hospital on July 19 with chest pain and shortness ofbreath. Troponin was elevated to 14. Left heart catheterization on the day ofadmission noted severe triple vessel disease with decreased LV function and severeanterior wall hypokinesis; left ventricular ejection fraction was 35%. She underwentCABG x4 yesterday. Intraoperative course was notable for severe bleeding requiringmultiple blood products including FFPs and packed red cells. She was started onpressors as well. Her chest tube drainage through the night was significant. Shehad some blood clots around the upper end of incision for which she was taken back tothe OR this morning. Labs this morning noted a pH of 7.19 with a potassium of 5.9.Presently sedated, intubated on the vent. On 3 vasopressors including Levophed, epiand vasopressin along with . Blood pressure in the low 100s. Nephrologyconsultation has been requested for consideration of dialysis.PAST MEDICAL HISTORY:1. ESRD- on maintenance hemodialysis.2. Diabetes mellitus.3. Dyslipidemia.4. Hypothyroidism.5. Left upper extremity graft.6. Hysterectomy.7. Recent CABG.ALLERGIES: CYCLOPHOSPHAMIDE.SOCIAL HISTORY: She lives with her daughter. Not an active smoker.FAMILY HISTORY: Noncontributory.REVIEW OF SYSTEMS: Unobtainable.MEDICATIONS: Reviewed.LABORATORY DATA: Labs from this morning, sodium 150, potassium 4.1, chloride 106,CO2 of 18, BUN 34, creatinine 3.6. Total white count 18,000, hemoglobin 8.8,hematocrit 26.5. Urinalysis: Positive leukocyte esterase, 70 white blood cells.Urine culture pending. Chest x-ray from yesterday notes bibasilar opacitiescompatible with atelectasis; small bilateral pleural effusions.PHYSICAL EXAMINATION: [facility] PATIENT NAME: VALENTE QUINONES [facility] Dr. Bartlett MEDICAL REC #: [id number], [place] [address] DATE: 07/17/18DISCHARGE DATE:CONSULTATION REPORT ATTENDING MARIE: Jensen Peguero DOVital Signs: Temperature 97.8, heart rate 87, blood pressure 108/52. I's and O'spositive 8 L.HEENT: Intubated on the ventilator.Lungs: Clear anteriorly.Heart: Regular.Extremities: Lower extremities: No edema. Left arm AV graft. Audible bruit.IMPRESSION:1. Acute myocardial infarction- status post coronary artery bypass graft x3.2. Cardiogenic shock.3. Anemia- secondary to acute blood loss.4. Anion-gap metabolic acidosis.5. Hyperkalemia secondary to number 1 and metabolic acidosis.6. Leukocytosis.7. Respiratory failure- on the ventilator.RECOMMENDATIONS :1. Will initiate CRRT for metabolic acidosis, hyperkalemia and fluid homeostasis.She is obviously hemodynamically too unstable for HD. Discussed with cardiacsurgery. See CVVHD orders. Will monitor labs periodically and adjust prescriptionas needed.2. Discontinue Flomax.3. Discontinue Demerol given potential for adverse effects given her age and ESRD.4. Packed red blood cell transfusion as needed.5. Agree with sodium bicarbonate as you have ordered.6. Double/quadruple concentrate all IV drips in order to minimize intake.7. Switch drips to 0.45% saline and avoid isotonic saline given hypernatremia.Further recommendations based on patient's medical progress.Thank you for giving me the opportunity to participate in the care of the patient. DYLAN Carbone/[id number]: 07/21/2018 09:43DT: 07/21/2018 11:19SSI File#: [id number] #: [id number] - This document may contain phonetic, minor grammatical errors, or errorsdue to voice quality.Verified/Reviewed by [facility] PATIENT NAME: VALENTE QUINONES Jason [address]lett MEDICAL REC #: [id number], [place] [address] DATE: 07/17/18DISCHARGE DATE:CONSULTATION REPORT ATTENDING PHY: Jensen Peguero DO07/22/18 1539 BHAPR [facility] PATIENT NAME: VALENTE QUINONES [facility] Dr. Bartlett MEDICAL REC #: [id number], [place] [address] DATE: 07/17/18DISCHAR DATE:CONSULTATION REPORT ATTENDING PHY: Jensen Peguero DO Normal [facility] Clifford GLUCOSE METERon 07-17-2018 Glucose mass conc 134 mg/dL High 85-125 [facility] Glucose mass conc 110 mg/dL Normal 85-125 [facility] Clifford HHon 07-17-2018 Hematocrit Auto Volume Fraction (Bld) 36.9 % Low 41.0-53.0 [facility] Comment on above: Order Comment: Kahlil s: M Performed By: #### L 300.13866, L300.75421 ####[facility] [id number] [place], [place] [address]Ch# [phone] Hemoglobin mass conc (Bld) 11.7 g/dL Low 13.5-17.5 [facility] Comment on above: Order Comment: Kahlil s: M Performed By: #### L 300.82644, L300.86564 ####[facility] [id number] [place], [place] [address]St# [phone] HP.Gino 07-17-2018 CONSULTATION-H&P Normal [facility] Clifford HP.[facility].ELADIO [facility] Patient Name: VALENTE QUINONES [facility] Date of : [address] [address] Unit Number: [id number] Number: [id number] Patient Status: REG SDCAttending Doctor: Jensen Peguero DOService Date: 07/17/18 1336History of Present IllnessReferring PhysicianJensen Peguero DOConsulted ProviderYoonTani DOSource of Information Patient, Medical recordReason for ConsultMedical movementLiving Situation Home - IndependentHistory of Present IllnessPatient is a 62-year-old male patient of Dr. gould, past medical history CAD withthree-vessel coronary artery bypass graft, diabetes, hypertension, non-STEMI, congestiveheart failure with an EF of 45% who presents to [facility] July 17 for a removal ofhardware and right total hip arthroplasty by Dr. Peguero. Patient states he has beenhaving trouble with his head for a year tried physical therapy, injections, and wvov-qta-vfvprme pain medication with no relief. He has been having difficulty getting in and outof a car putting on his socks and shoes secondary to the right hip pain and stiffness.Due to failed conservative management patient elected for surgical repair. Patientreports mild postoperative pain. He denies chest pain, dyspnea, dizziness, fever, chills,nausea, or vomiting. He has been asked to see for medical management.Past Medical/Surgical HxPast Medical HistoryCAD with three-vessel coronary artery bypass graft, diabetes, hypertension, non-STEMI,systolic congestive heart failure with an EF of 30%, anemia, chronic renal failure stageIII, glaucoma, valvular heart disease, cardiomyopathy, pulmonary hypertension.Past Surgical HistoryCABG x3, arthroscopic, femur surgery, ORIF.Family/Social HistoryFamily HistoryMOTHER, .FH: diabetes mellitus, Onset: Unknown.FH: heart attack, Onset: Unknown.FATHER, .FH: heart attack, Onset: Unknown.Family Hx Other/CommentFamily history reviewed with patientSubstancesDenies use of: Alcohol, Tobacco, Recreational Drugs.Structured Exercise NoSocial HxPatient states he lives with his . Denies tobacco, alcohol, illicit drugAdvance DirectivesAdvance Directives Full CodeAllergies/Home MedicationsAllergiesCoded Allergies:PREGABALIN (From LYRICA) (Mild, FACE SWELLS/BREAKS OUT 02/11/18)Home MedicationsAspirin* (Aspir 81 MG Tab*) 81 MG TABLET. 162 MG PO QDAYWM, Ref 0 (Reported)LAST DOSE 07/07/[address] VALIENTE CK WITH DR Sierra as Reported by FLOYD VICENTE on 02/05/18 0946Last Taken: 07/07/18 Last Action: Last Taken Edited on 07/17/18 075 by LYDIA MAYNARDCarvedilol 25 MG TABLET 25 MG PO BID, Ref 0 (Reported)Entered as Reported by FLOYD VICENTE on 02/05/18 0946Last Taken: 25 mg on 07/17/1830 Last Action: Last Taken Edited on by LYDIA MAYNARDCelecoxib* (celeBREX 200MG CAP*) 200 MG CAPSULE 200 MG PO PRN PRN PAIN, Ref 0 (Reported)LAST DOSE 2 WKS PREOPEntered as Reported by FLOYD VICENTE on 02/05/18 0948Last Action: Reviewed on 07/17/18750 by LYDIA MAYNARDDoxazosin Mesylate* (Cardura 2MG Tab*) 2 MG TABLET 2 MG PO BID, Ref 0 (Reported)Entered as Reported by FLOYD VICENTE on 02/05/18 0947Last Taken: 2 mg on 07/17/1830 Last Action: Last Taken Edited on 07/17/18 075by LYDIA MAYNARDFurosemide * (Lasix 40MG Tab*) 40 MG TABLET 60 MG PO BIDAC, Ref 0 (Reported)Entered as Reported by PATTIE AUGUSTIN on 07/02/18 1502Last Taken: 60 MG on 07/17/1830 Last Action: Last Taken Edited on 750 by LYDIA MAYNARDGabapentin * (Neurontin Tab*) 600 MG TABLET 600 MG PO QHS, Ref 0 (Reported)Entered as Reported by PATTIE AUGUSTIN on 02/06/1835Last Action: Reviewed on 07/17/18750 by Guevara MAYNARD Detemir (Levemir Flextouch Pen) 100 UNIT/1 ML INSULN.PEN 17 UNITS SC QHS,Ref 0 (Reported)Entered as Reported by FLOYD VICENTE on 02/05/1848Last Action: Reviewed on 07/17/18750 by Avis MAYNARDtanopros t* (Xalatan 0.005% Eye Drop*) 2.5 ML DROPS 1 GTT OU QHS, Ref 0 (Reported)Entered as Reported by FLOYD VICENTE on 02/05/1848Last Action: Reviewed on 07/17/18750 by Kirby MAYNARDsinopril * (Zestril 20MG Tab*) 20 MG TABLET 20 MG PO QDAY, Ref 0 (Reported)Entered as Reported by PATTIE AUGUSTIN on 07/02/189Last Action: Reviewed on 07/17/18750 by LYDIA MAYNARDMetolazone * (zaroXOLYN 2.5MG TAB*) 2.5 MG TABLET 5 MG PO SUN/, Ref 0 (Reported)Entered as Reported by FLOYD VICENTE on 02/05/1847Last Taken: 5 MG on 07/17/18 0530 Last Action: Last Taken Edited on 07/17/18y Radha MAYNARDvaslisbethti n Sod* (Pravachol 80MG Tab*) 80 MG TABLET 80 MG PO QHS, Ref 0 (Reported)Entered as Reported by FLOYD VICENTE on 02/05/1846Last Action: Reviewed on 07/17/18750 by Mariana MAYNARDdalafil (Cialis) 20 MG TABLET 20 MG PO PRN PRN ., Ref 0 (Reported)Entered as Reported by FLOYD VICENTE on 02/05/1849Last Action: Reviewed on 07/17/18 0751 by Nataly MAYNARDmadol HCl* (Ultram 50MG Tab*) 50 MG TABLET 50 MG PO TID,PRN PAIN, Ref 0 (Reported)Entered as Reported by PATTIE AUGUSTIN on 07/02/18 1501Last Action: Reviewed on 07/17/18750 by Vannessa MAYNARDpatient MedicationsMedications CurrentSig/SchStart timeLastMedicationDoseRout eStop TimeStatusAdminAl Hydrox/Mg Hydrox/30 MAC6KWJB PRN109/16 1100ACSimethiconePO(MAALOX (ALAMAG)PLUSORAL LIQ)Bisacodyl5 MGONCE ONE07/18 1100AC(DULCOLAX TAB.EC)PO07/18 1101Cefazolin Sodium2 GMQ8H@ 1700AC(ANCEF VIAL)IV07/18 0129Sodium Dfnbifyn10 ML(Sodium Chloride0.9%)Diphenhydrami ne HCl25 MGK1YQVA PRN109/16 1100AC(BENADRYL CAP)PODocusate Pdvqzhp663 MGQ12H@ 2100AC(SURFAK CAP)POEnoxaparin Qeusrz46 TWA35W78/22 0900AC(LOVENOX D.SYR)SCHydromorphone HCl2 UZW5DVKP PRN109/16 1100AC(DILAUDID D.SYR)IMLactated Ringer's1,000 EQAVBI16/21 1100AC(Lactated Ringers)IV07/19 1059Oxycodone/1 GXYUYS6LHDL PRN109/16 1100ACAcetaminophenPO(perc oCET-5/325 TAB)Oxycodone/2 VRNKWI3FAZK PRN109/16 1100ACAcetaminophenPO(perc oCET-5/325 TAB)Pantoprazole Zbdllt17 EHQRQZOR90/22 0700AC(PROTONIX TAB)POSodium Chloride3 JAJ0R89/21 1400AC(Sodium ChlorideIV0.9% FLUSH D.SYR)Sodium Chloride3 MLPRN PRN109/16 1100AC(Sodium ChlorideIV0.9% FLUSH D.SYR)Trimethobenzamide CMq394 TRY4WWBA PRN109/16 1100AC(TIGAN VIAL)IMZolpidem Tartrate5 MGQHSPRN PRN109/16 1100AC(AMBIEN TAB)POReview of SystemsROS: OtherConstitutional - [Denies any fever, chills, fatigue.]Eyes - [Denies any blurred vision, double vision.]HEENT -[Denies any difficulty swallowing, headaches, or sore throat. Reports hard ofhearingCardiovascular - [Denies any chest pain, chest pressure, palpitations or dizziness.]Respiratory - [Denies any cough, hemoptysis. Reports shortness of breath on exertion.Gastrointestinal - [Denies any abdominal pain, diarrhea, nausea, or vomiting.]Genitourinary - [Denies any dysuria, hematuria.Musculoskeletal- reports right hip pain and, stiffness, swelling prior to surgery.Skin denies any jaundice, rash.]Neurologic - [Denies any blurred vision, double vision, slurred speech, headaches, ornumbness and tingling.]Psychiatric - [Denies any anxiety, depression.]Physical ExamVital SignsVital signs and PACU are as followsTemperature 98.0, heart rate 61, respiratory rate 16, 97% on 3 L nasal cannula, bloodpressure 119/64, blood sugar 134.Medications CurrentSig/SchStart timeLastMedicationDoseRout eStop TimeStatusAdminAl Hydrox/Mg Hydrox/30 VXH5ODVZ PR 1100ACSimethiconePO(MAALOX (ALAMAG)PLUSORAL LIQ)Bisacodyl5 MGONCE ONE07/18 1100AC(DULCOLAX TAB.EC)PO07/18 1101Cefazolin Sodium2 GMQ8H@ 1700AC(ANCEF VIAL)IV07/18 0129Sodium Scbzfhcx12 ML(Sodium Chloride0.9%)Diphenhydrami ne HCl25 OOL3HOFG PR 1100AC(BENADRYL CAP)PODocusate Jgjkddh105 MGQ12H@ 2100AC(SURFAK CAP)POEnoxaparin Uudooy09 JMR19O42/22 0900AC(LOVENOX D.SYR)SCHydromorphone HCl2 CLV4JNMD PRN109/16 1100AC(DILAUDID D.SYR)IMLactated Ringer's1,000 IGJGAK92/21 1100AC(Lactated Ringers)IV07/19 1059Oxycodone/1 VHGAGC4YQUQ PRN109/16 1100ACAcetaminophenPO(perc oCET-5/325 TAB)Oxycodone/2 ACERQU2DYWU PRN109/16 1100ACAcetaminophenPO(perc oCET-5/325 TAB)Pantoprazole Ejonmr69 MFFCLFDC61/22 0700AC(PROTONIX TAB)POSodium Chloride3 NIE3L28/21 1400AC(Sodium ChlorideIV0.9% FLUSH D.SYR)Sodium Chloride3 MLPRN PRN109/16 1100AC(Sodium ChlorideIV0.9% FLUSH D.SYR)Trimethobenzamide GHb715 OEC8INTS PRN109/16 1100AC(TIGAN VIAL)IMZolpidem Tartrate5 MGQHSPRN PRN109/16 1100AC(AMBIEN TAB)POLaboratory TestsTestResultDate TimeChemistryWhole Bld Glucose (85 - 125 MG/DL)134 H109/16 1323HematologyHgb (13.5 - 17.5 G/DL)11.7 L109/16 0721Hct (41.0 - 53.0 %)36.9 L109/16 0721Preop labs and medical records reviewedPhysical Exam SummaryConstitutional - Patient appears well groomed, appropriate, alert.Eyes - Anicteric, normal conjunctiva.ENT - Head normocephalic,atraumatic. Oral mucosa pink and moist. Neck supple, tracheamidline.Cardiovascu lar - Heart is regular rate and rhythm. No gallops, rubs, murmurs noted. Noevidence of carotid bruit heard.Respiratory - nonlabored, regular, even. Clear to auscultation.Skin -right hip dressing dry and intact no shadowing noted. Otherwise skin appears warm,dry, intact.Gastrointestinal - Abdomen soft, bowel sounds present, nontender. No guarding orrebounding noted.Genitourinary - Not examinedLymph - No gross lymphadenopathy noted.Musculoskeletal - Grasps appear moderate in strength and equal. Pulses are +2. Bilaterallower extremity edema +1. Capillary refill less than 3 seconds. Toes warm and mobileNeurologic - Patient is alert and oriented and appropriate 3. Speech is clear. No facialdroop noted.Psychiatric - Patient appears calm, no anxiety or depression noted.Conclusion / PlanConclusion1. Systolic heart failureLast echo showed an EF of 40-45% in 2017. Continue current medication regimen.2. Coronary artery diseaseContinue medical patient is as at home. Daily troponin. EKG in a.m.3. HypertensionContinue medications as at home.4. Chronic renal disease, stage IIILast GFR on July 04 was 48. BUN and creatinine elevated likely baseline we will repeatBMP in a.m.5. HyperlipidemiaContinue home statin6. Iron deficiency anemiaIron deficiency anemia related to chronic renal failure patient on iron supplementationand Procrit injections. we will continue medications as at home.7. ArthritisStatus post removal of hardware and right total hip arthroplasty. Surgery managing. DVTand GI prophylaxis per surgeon.Encourage incentive spirometryThank you for allowing us to participate in the care of this patient. We will continue tofollow him as needed through his hospital stayStable ProblemsProblems not specifically addressed in the above plan are stable and do not warrantadjustment of the current method of therapy.Collaborating PhysicianTani Martinez dictation was created using voice recognition software.Phonetic and/or minor grammatical errors may exist.eSign Date and TimeBilDonna mendoza CNP Verified/Reviewed by 07/17/18 Tani Luz DO [facility] Pina 07-17-[address] [facility] OR DATE OF SERVICE: 07/17/2018PREOPERATIVE DIAGNOSIS: Traumatic osteoarthritis of the right hip, status postintertrochanteric fracture of the right hip with cephalomedullary nail and multiplescrews.POSTOPERATI VE DIAGNOSIS: Traumatic osteoarthritis of the right hip, status postintertrochanteric fracture of the right hip with cephalomedullary nail and multiplescrews.OPERATION: Removal of hardware and total hip replacement arthroplasty, right,utilizing a White [employer] Nephew size 66 acetabular cup with a 40 mm 0 degreepolyethylene liner, a size 16 [place] porous straight femoral component, 190 mm inlength with a +4 40 mm Oxinium femoral head.SURGEON: Jensen Peguero M.D.[employer] BUSINESS ANALYST: Radha Fitch PA-C; Fernandez Rosario DO, orthopedic resident; Yaya Boone,orthopedic resident.ANESTHESIA: General with local for postoperative pain management.BLOOD LOSS: 200 mL.COMPLICATIONS: None.HISTORY: Ted is a 63-year-old white male who had an intertrochanteric fracture tenyears ago, had to have an intramedullary nail put in and did well up until about thelast two years. He has developed a significant amount of traumatic arthritis of theright hip, so much that he cannot work and barely get around so he is here today toremove the old nail and screws and do a total hip replacement on the right. Wediscussed that procedure with him, the risks, the benefits, and postoperativemanagement, the rehabilitation efforts required postoperatively. He is aware of thatand a consent was signed.PROCEDURE: Patient was brought down to the OR and after induction of generalanesthesia was placed in a lateral decubitus position with the right hip up. Theright hip was sterilely prepped and draped in the usual orthopedic fashion. Firstincision was a distal one over the distal locking screw. Once we had the headexposed, put in the appropriate hex head screwdriver and removed the distal lockingmechanism. We then irrigated that and closed that with a 0 Vicryl suture, 3-0 Vicrylsuture, and cristhian. We then back to the top of the hip, made an anterolateralapproach through a lateral incision reflecting the gluteus medius and otherstructures anteriorly until the underlying hip was identified. It was thendislocated exposing the severely deformed and oval-shaped femoral head with large [facility] PATIENT NAME: MAURI QUINONES1320 Jason Bartlett MEDICAL REC #: [id number], [place] [address] DATE: 07/17/18DISCHARGE DATE:OPERATIVE REPORT ATTENDING PHY: Jensen Peguero DOosteophytes on the neck. We removed the proximal locking screw and then was able toremove the compression screw and then was able to remove the intramedullary nail. Dorene went ahead with the hip replacement utilizing straight stem [place] Ferrell,reaming, trialing, ended up going with a +4 head was better for stability and a 16 mmx 190 mm straight stem. We drilled four holes in the trochanter, placed number 5Ethibond sutures through those for repair of the gluteus medius after reducing thehip. 200 mL blood loss, irrigated with the Aricept, saline, injected our localmixtures into the deep and superficial tissues, and then did a repair of the minimuswith number 2, vastus lateralis with number 2, the gluteus medius and capsule with anumber 5 and then the tensor with a number 1 suture. Subcutaneous tissues wereclosed with 3-0 Vicryl, cristhian, silver dressing. He tolerated the procedure quitewell. Leg lengths appeared to be equal on the table. He was placed on his back,extubated, and taken to the recovery room in stable condition. TEO Velasquez/[id number]: 07/17/2018 12:13DT: 07/17/2018 13:47SSI File#: [id number] #: [id number]/Reviewed by07/20/18 0817 LILY [facility] PATIENT NAME: COREY QUINONES0 Jason Bartlett MEDICAL REC #: [id number], [place] [address] DATE: 07/17/18DISCHARGE DATE:OPERATIVE REPORT ATTENDING PHY: Jensen Peguero DO [facility] PORTABLE CHESTon 07-17-2018 PORTABLE CHEST PORTABLE CHESTOrderi ng Physician: Jameson Sullivan MD07/22/2018 7:00 AMPORTABLE UPRIGHT CHEST RADIOGRAPH AT 0510 HOURSClinical Statement: CHFComparison: 07/20/2018FINDINGS: The patient has undergone prior median sternotomy. Theheart is enlarged. Pulmonary vasculature is borderline congested.There is trace effusions. No focal consolidation. No pneumothorax.IMPRESSION:1. Cardiomegaly with borderline congestion.2. Trace bilateral effusions. ---- Electronic Signature on File ----Signed By: Chantell [email or web address]: 07/22/2018 7:14 AMSigned: 07/22/2018 7:15 AM Reported By: FLORINA GUERRERO M.D. Signed By: FLORINA GUERRERO M.D. [facility] PORTABLE CHEST PORTABLE CHESTOrderi ng Physician: Jameson Sullivan MD07/20/2018 10:41 AMPORTABLE AP CHEST JULY 20, 2018 10:49 AMClinical Statement: Congestive heart failureComparison: NoneFINDINGS: The cardiomediastinal silhouette is enlarged. There isprominence of the pulmonary vascularity with no definite airspaceconsolidation. No pleural effusion or pneumothorax is demonstrated.IMPRESSION:Ca rdiomegaly and pulmonary venous congestion consistent with early ormild congestive heart failure. ---- Electronic Signature on File ----Signed By: Chantell [email or web address]: 07/20/2018 10:59 AMSigned: 07/20/2018 11:00 AM Reported By: SANDRINE LANCASTER M.D. Signed By: SANDRINE LANCASTER M.D. [facility] TSon 07-17-2018 ABO and Rh group Nom (Bld) O NEGATIVE Normal [facility] Comment on above: Order Comment: Kahlil s: Aditya US KIDNEYon 07-17-2018 US KIDNEY US KIDNEYOrdering Physician: Sigrid Hodge MD07/19/2018 11:17 AMRENAL ULTRASOUNDComparison: NoneClinical Statement: Acute kidney injuryFINDINGS: The right and left kidneys measure 13.0 cm in longitudinaldimension each. There is no abnormal distention of either collectingsystem, shadowing calculus or mass. There is no abnormal perinephricfluid collection. Cortical-medullary differentiation is adequatelymaintained.IMPRE SSION:Normal renal ultrasound. No abnormal distention. ---- Electronic Signature on File ----Signed By: Nando Elizabeth [email or web address]: 07/19/2018 7:32 PMSigned: 07/19/2018 7:36 PM Reported By: NANDO ELIZABETH M.D. Signed By: NANDO ELIZABETH M.D. [facility] URINE CULTUREon 07-06-2018 Bacteria identified Cx Nom (U) NO GROWTH AFTER [address] [facility] Comment on above: Order Comment: Jorgeu s: M Performed By: #### L 300.13959, L300.66874 ####[facility] [id number] [place], [place] [address]Fx# [phone] ABO/RH NCon 07-04-2018 ABO and Rh group Nom (Bld) O NEGATIVE Normal [facility] Comment on above: Order Comment: Kahlil s: M BMPon 07-04-2018 Anion gap 3 molar conc 7 mmol/L Normal 5-16 [facility] Comment on above: Order Comment: Jorgeu s: M Performed By: #### L 300.36710, L300.13007 ####[facility] [id number] [place], [place] [address]Oc# [phone] Calcium mass conc 8.5 mg/dL Normal 8.5-10.1 [facility] Comment on above: Order Comment: Campu s: M Performed By: #### L 300.55453, L300.94189 ####[facility] [id number] [place], [place] [address]Ij# [phone] Chloride molar conc 100 mmol/L Normal 98-107 [facility] Comment on above: Order Comment: Campu s: M Performed By: #### L 300.87008, L300.55206 ####[facility] [id number] [place], [place] [address]Tb# [phone] CO2 molar conc 32 mmol/L Normal 21-32 [facility] Comment on above: Order Comment: Campu s: M Performed By: #### L 300.43721, L300.69980 ####[facility] [id number] [place], [place] [address]Lb# [phone] Creatinine mass conc 1.490 mg/dL High 0.670-1.170 [facility] Comment on above: Order Comment: Campu s: M Result Comment: Macrina ents receiving either N-Acetylcysteine (NAC) orMetamizole prior to venipuncture, may have falsely depressedresults. Performed By: #### L 300.15962, L300.44137 ####[facility] [id number] [place], [place] [address]Qn# [phone] Glucose mass conc 90 mg/dL Normal 70-100 [facility] Comment on above: Order Comment: Campu s: M Result Comment: 70-1 00- Normal Fasting; 100-125 Impaired Fasting; greaterthan 126 on more than one result- Diabetes. ADA guidelines.Results may be falsely elevated after the administration ofSulfapyridine.Results may be falsely depressed after the administration ofSulfasalazine. Performed By: #### L 300.03441, L300.28964 ####[facility] [id number] [place], [place] [address]Bd# [phone] Potassium molar conc 4.7 mmol/L Normal 3.5-5.1 [facility] Comment on above: Order Comment: Campu s: M Performed By: #### L 300.28055, L300.01204 ####[facility] [id number] [place], [place] [address]Zr# [phone] Sodium molar conc 139 mmol/L Normal 136-145 [facility] Comment on above: Order Comment: Campu s: M Performed By: #### L 300.53337, L300.58199 ####[facility] [id number] [place], [place] [address]Ph# [phone] Urea nitrogen mass conc 73 mg/dL High 7-26 [facility] Comment on above: Order Comment: Campu s: M Performed By: #### L 300.41167, L300.43251 ####[address] [address]Uh# [phone] Urea nitrogen/Creatinine mass ratio 49 mg/mg High 15-24 [facility]: Order Comment: Campu s: M Performed By: #### L 300.72290, L300.29781 ####[facility] [id number] [place] [address]Rj# [phone] CBC W/DIFFon 07-04-2018 BASO ABS 0.00 K/CU MM Normal 0-0.2 [facility] Comment on above: Order Comment: Campu s: M Performed By: #### L 300.94035, L300.78312 ####[facility] [id number] [place] [address]Dv# [phone] Basophils/100 WBC Auto (Bld) 0.5 % Normal 0-2 [facility] Comment on above: Order Comment: Campu s: M Performed By: #### L 300.82000, L300.88563 ####[facility] [id number] [place] [address]Vi# [phone] EOS ABS 0.20 K/CU MM Normal 0-0.5 [facility] Comment on above: Order Comment: Campu s: M Performed By: #### L 300.66207, L300.40974 ####[facility] [id number] [place] [address]Ph# [phone] Eosinophils/100 WBC Auto (Bld) 2.6 % Normal 0-5 [facility] Comment on above: Order Comment: Campu s: M Performed By: #### L 300.27020, L300.85141 ####[place] [address]Ph# [phone] Erythrocyte distribution width Auto Ratio (RBC) 14.1 % Normal 11-14.5 [facility] Comment on above: Order Comment: Campu s: M Performed By: #### L 300.42955, L300.98896 ####[address] [address]Hj# [phone] Hematocrit Auto Volume Fraction (Bld) 32.5 % Low 41.0-53.0 [facility] Comment on above: Order Comment: Campu s: M Performed By: #### L 300.46307, L300.65229 ####[place] [address]Ph# [phone] Hemoglobin mass conc (Bld) 10.5 g/dL Low 13.5-17.5 [facility] Comment on above: Order Comment: Campu s: M Performed By: #### L 300.35603, L300.82077 ####[facility] [id number] [place], [place] [address]Ph# [phone] IMMATR GRAN ABS 0.00 K/CU MM Normal Less than 2 [facility] Comment on above: Order Comment: Campu s: M Performed By: #### L 300.77200, L300.66139 ####[place] [address] [place] [address]Ph# [phone] IMMATURE GRAN % 0.2 % Normal Less than 2 [facility] Comment on above: Order Comment: Campu s: M Performed By: #### L 300.63182, L300.46867 ####[facility] [id number] [place] [address]Ph# [phone] Lymphocytes Auto #/vol (Bld) 0.70 K/CU MM Low 0.9-4.4 [facility] Comment on above: Order Comment: Campu s: M Performed By: #### L 300.90018, L300.24275 ####[place] [address]Ph# [phone] Lymphocytes/100 WBC Auto (Bld) 11.4 % Low 20-40 [facility] Comment on above: Order Comment: Campu s: M Performed By: #### L 300.02493, L300.96989 ####[place] [address]Ph# [phone] MCHC Auto mass conc (RBC) 32.3 g/dL Normal 32.0-36.0 [facility] Comment on above: Order Comment: Campu s: M Performed By: #### L 300.08828, L300.11903 ####[place] [address]Ph# [phone] MCV Auto Entitic volume (RBC) 89.5 fL Normal 80.0-99.0 [facility] Comment [facility] above: Order Comment: Campu s: M Performed By: #### L 300.00641, L300.55222 ####[facility] [id number] [place], [place] [address]Ph# [phone] MONO ABS 0.70 K/CU MM Normal 0.1-1.1 [facility] Comment on above: Order Comment: Campu s: M Performed By: #### L 300.04853, L300.89987 ####[facility] [id number] [place], [place] [address]Ph# [phone] Monocytes/100 WBC Auto (Bld) 10.9 % High 2-10 [facility] Comment on above: Order Comment: Campu s: M Performed By: #### L 300.93428, L300.85818 ####[facility] [id number] [place], [place] [address]Oz# [phone] NEUTROPHIL ABS 4.90 K/CU MM Normal 2.0-8.3 [facility] Comment on above: Order Comment: Campu s: M Performed By: #### L 300.69407, L300.18651 ####[facility] [id number] [place], [place] [address]Ph# [phone] Neutrophils/100 WBC Auto (Bld) 74.4 % Normal 45-75 [facility] Comment [facility] above: Order Comment: Campu s: M Performed By: #### L 300.87737, L300.32586 ####[place] [address] [place], [place] [address]Of# [phone] Nucleated RBC/100 WBC Ratio (Bld) 0.0 % Normal Less than 1 [facility] Comment on above: Order Comment: Campu s: M Performed By: #### L 300.41657, L300.15490 ####[facility] [id number] [place], [place] [address]Qh# [phone] Platelet mean volume Auto Entitic volume (Bld) 9.7 fL Normal 9.4-12.4 [facility] Comment on above: Order Comment: Campu s: M Performed By: #### L 300.15364, L300.79263 ####[facility] [id number] [place], [place] [address]Ha# [phone] Platelets Auto #/vol (Bld) 226 K/CU MM Normal 150-450 [facility] Comment [facility]: Order Comment: Campu s: M Performed By: #### L 300.29116, L300.70550 ####[facility] [id number] [place] [address]Ya# [phone] RBC Auto #/vol (Bld) 3.63 M/CU MM Low 4.50-6.00 [facility] Clifford Comment on above: Order Comment: Campu s: M Performed By: #### L 300.58544, L300.53118 ####[facility] [id number] [place], [place] [address]Zr# [phone] WBC Auto #/vol (Bld) 6.5 K/CU MM Normal 4.5-11.0 [facility] Clifford Comment on above: Order Comment: Campu s: M Performed By: #### L 300.78121, L300.38304 ####[facility] [id number] [place] [address]Ld# [phone] Tom 07-04-2018 FERR 183.0 NG/ML Normal 24.0-388.0 [facility] Comment on above: Order Comment: Campu s: M Performed By: #### L 300.87063, L300.19244 ####[address] [address]Jj# [phone] GFR ESTon 07-04-2018 IF AMER 58 ML/MIN Normal [facility] Comment on above: Order Comment: Campu s: M Performed By: #### L 300.31926, L300.57632 ####[facility] [id number] [place] [address]Fj# [phone] IF non-AFR AMER 48 ML/MIN Normal [facility] Comment on above: Order Comment: Campu s: M Performed By: #### L 300.16041, L300.64324 ####[facility] [id number] [place], [place] [address]Cs# [phone] HGB A1C GLYCOHBon 07-04-2018 Hemoglobin A1c/Hemoglobin.total mass fraction (Bld) 8.4 % High 4.3-6.0 [facility] Comment on above: Order Comment: Campu s: M Performed By: #### L 300.25086, L300.34651 ####[facility] [id number] [place], [place] [address]Sb# [phone] IRON PANELon 07-04-2018 Iron mass conc 83 ug/dL Normal 65-175 [facility] Comment on above: Order Comment: Kahlil s: M Result Comment: Macrina ents treated with metal-binding drugs (e.g.deferoxamine)may have depressed iron values, as chelated iron may notproperly react in the Siemens iron assay. Performed By: #### L 300.96108, L300.71151 ####[facility] [id number] [place], [place] [address]Em# [phone] IRON SAT 23 % Low 30-44 [facility] Comment on above: Order Comment: Kahlil s: M Performed By: #### L 300.45070, L300.24777 ####[facility] [id number] [place], [place] [address]Uw# [phone] TIBC 364 UG/DL Normal 221-481 [facility] Comment on above: Order Comment: Kahlil s: M Performed By: #### L 300.43459, L300.25049 ####[facility] [id number] [place], [place] [address]Np# [phone] MRSA PCRon 07-04-2018 MRSA PCR Negative Normal NEGATIVE [facility] Comment on above: Order Comment: Kahlil steel: M Result Comment: PLEA SE NOTE: TESTING DONE BY PCR TECHNOLOGY. Performed By: #### L 300.63176, L300.26945 ####[facility] [id number] [place], [place] [address]Lk# [phone] SA PCR Negative Normal NEGATIVE [facility] Comment on above: Order Comment: Kahlil s: M Result Comment: PLEA SE NOTE: TESTING DONE BY PCR TECHNOLOGY. Performed By: #### L 300.47498, L300.51917 ####[facility] [id number] [place], [place] [address]Ov# [phone] PBNP TESTon 07-04-2018 Natriuretic peptide B mass conc (Bld) 29157 pg/mL High 0-900 [facility] Comment on above: Order Comment: Kahlil steel: M Result Comment: NT-p roBNP results of less than 300 pg/ml effectively rulesout acute congestive heart failure with 99% negativepredictive value. Performed By: #### L 300.86836, L300.36458 ####[facility] [id number] [place], [place] [address]Us# [phone] PTon 07-04-2018 INR Coag RelTime (PPP) 1.04 {INR} Normal 0.9-1.1 [facility] Comment on above: Order Comment: Kahlil Burgess Result Comment: Rhett mmended PT INR therapeutic range for extermination inspector andprophylactic therapy is 2.0 - 3.0. For heart valve andshunt patients the range is 2.5 - 3.5. Performed By: #### L 300.04642, L300.33784 ####[facility] [id number] [place], [place] [address]Hx# [phone] PTS 11.1 SECONDS Normal 9.5-12.0 [facility] Comment on above: Order Comment: Kahlil Burgess Performed By: #### L 300.06236, L300.71106 ####[facility] [id number] [place], [place] [address]Yp# [phone] PTTon 07-04-2018 aPTT Coag time (Bld) 25.7 s Normal 22.0-31.5 [facility] Comment on above: Order Comment: Kahlil Burgess Result Comment: Ther apeutic Heparin Reference Range: High Dose: 46-75 seconds (DVT/PE) Low Dose: 39-60 seconds (Acute Coronary Syndrome)For low molecular weight heparin or danaparoid, monitoringis often NOT necessary, but the heparin assay, Xa inhibitionassay (send-out) may be used in certain circumstances, asthe PTT is generally insensitive to the effect of theseagents. Direct thrombin inhibitors are becoming more widelyutilized and these drugs are often monitored using the PTT. Performed By: #### L 300.92793, L300.87287 ####[facility] [id number] [place], [place] [address]Qt# [phone] TROPONIN Ion 07-04-2018 Troponin I.cardiac mass conc 0.030 ng/mL Normal 0.000-0.045 [facility] Comment on above: Order Comment: Kahlil s: M Performed By: #### L 300.03365, L300.74684 ####[facility] [id number] [place], [place] [address]Cm# [phone] XR FINGER 3RD DIGIT 3 VIEWS RIGHTon 05-20-2018 XR FINGER 3RD DIGIT 3 VIEWS RIGHT ORIGINALXR FINGER 3RD DIGIT 3 VIEWS RIGHT CLINICAL STATEMENT: crush injury, laceration. COMPARISON: None FINDINGS: Prominent soft tissue swelling is present distally. No fracture, dislocation or foreign body seen. Interpreted By: Jensen Munsonreliminary Report By: Jensen Munson MDElectronically Signed By: Jensen Munson MD Dictated Date: 05/20/2018 10:05:40 AM Prelim Date: 05/20/2018 10:05:40 AM Sign Date: 05/20/2018 10:06:01 AM Normal [facility] ([place]) Tom 02-12-2018 FERR 87.5 NG/ML Normal 24.0-388.0 [facility] Comment on above: Order Comment: Kahlil s: M Performed By: #### L 300.75218, L300.84156 ####[facility] [id number] [place], [place] [address]Cn# [phone] IRON PANELon 02-12-2018 Iron mass conc 249 ug/dL High 65-175 [facility] Comment on above: Order Comment: Kahlil s: M Result Comment: Macrina ents treated with metal-binding drugs (e.g.deferoxamine)may have depressed iron values, as chelated iron may notproperly react in the Siemens iron assay. Performed By: #### L 300.14618, L300.73938 ####[facility] [id number] [place], [place] [address]Xx# [phone] IRON SAT 74 % High 30-44 [facility] Comment on above: Order Comment: Kahlil s: M Performed By: #### L 300.28772, L300.74213 ####[facility] [id number] [place], [place] [address]Th# [phone] TIBC 336 UG/DL Normal 221-481 [facility] Comment on above: Order Comment: Campu s: M Performed By: #### L 300.06707, L300.84682 ####[facility] [id number] [place], [place] [address]Ov# [phone] URINE CULTUREon 02-08-2018 Bacteria identified Cx Nom (U) ORGANISM 1: GAMMA HEMOLYTIC STREPTOCOCCUS COLONY COUNT >100,000 ID TO FOLLOW NOT VIABLE FOR SENSITIVITY Normal [facility] Comment on above: Order Comment: Campu s: M Performed By: #### L 300.13419, L300.58624 ####[facility] [id number] [place], [place] [address]Ev# [phone] ABO/RH NCon 02-06-2018 ABO and Rh group Nom (Bld) O NEGATIVE Normal [facility] Comment on above: Order Comment: Campu s: MIs This Patient Going To Surgery? YSurgery Date: 02/20/18 BMPon 02-06-2018 Anion gap 3 molar conc 9 mmol/L Normal 5-16 [facility] Comment on above: Order Comment: Campu s: M Performed By: #### L 500.26532, L500.13914, L500.83416, L500.68740 ####[facility] [id number] [place], [place] [address]Li# [phone] Calcium mass conc 8.3 mg/dL Low 8.5-10.1 [facility] Comment on above: Order Comment: Campu s: M Performed By: #### L 500.68358, L500.24669, L500.45131, L500.48726 ####[facility] QOQLGKFMNO3085 [place], [place] [address]Wj# [phone] Chloride molar conc 102 mmol/L Normal 98-107 [facility] Comment on above: Order Comment: Campu s: M Performed By: #### L 500.04986, L500.31472, L500.09621, L500.09058 ####[facility] [id number] [place], [place] [address]Ta# [phone] CO2 molar conc 29 mmol/L Normal 21-32 [facility] Clifford Comment on above: Order Comment: Kahlil s: M Performed By: #### L 500.41042, L500.87379, L500.46839, L500.48372 ####[facility] [id number] [place], [place] [address]Ms# [phone] Creatinine mass conc 1.270 mg/dL High 0.670-1.170 [facility] Comment on above: Order Comment: Kahlil s: M Result Comment: Macrina ents receiving either N-Acetylcysteine (NAC) orMetamizole prior to venipuncture, may have falsely depressedresults. Performed By: #### L 500.87296, L500.75510, L500.30173, L500.98123 ####[facility] [id number] [place], [place] [address]Zz# [phone] Glucose mass conc 131 mg/dL High 70-100 [facility] Comment on above: Order Comment: Kahlil s: M Result Comment: 70-1 00- Normal Fasting; 100-125 Impaired Fasting; greaterthan 126 on more than one result- Diabetes. ADA guidelines.Results may be falsely elevated after the administration ofSulfapyridine.Results may be falsely depressed after the administration ofSulfasalazine. Performed By: #### L 500.82534, L500.53228, L500.54891, L500.77831 ####[facility] COZBUPOUMO6531 [place], [place] [address]Sk# [phone] Potassium molar conc 5.1 mmol/L Normal 3.5-5.1 [facility] Comment on above: Order Comment: Kahlil s: M Performed By: #### L 500.93484, L500.88139, L500.57753, L500.41084 ####[facility] PDCZBWHPME3431 [place], [place] [address]Pu# [phone] Sodium molar conc 140 mmol/L Normal 136-145 [facility] Comment on above: Order Comment: Campu s: M Performed By: #### L 500.73262, L500.06589, L500.26953, L500.79291 ####[facility] MVSJEWLUTE8313 [place], [place] [address]Zq# [phone] Urea nitrogen mass conc 51 mg/dL High 7- [facility] Comment [facility]: Order Comment: Campu s: M Performed By: #### L 500.83763, L500.82348, L500.21143, L500.94477 ####[facility] [id number] [place], [place] [address]Kg# [phone] Urea nitrogen/Creatinine mass ratio 40 mg/mg High 15- [facility] Comment on above: Order Comment: Campu s: M Performed By: #### L 500.78293, L500.22170, L500.45724, L500.33794 ####[facility] [id number] [place] [address]Sd# [phone] CBC W/DIFFon 02-06-2018 BASO ABS 0.00 K/CU MM Normal 0-0.2 [facility] Clifford Comment on above: Order Comment: Campu s: M Performed By: #### L 200.17914 ####[facility] [id number] [place] [address]Dg# [phone] Basophils/100 WBC Auto (Bld) 0.6 % Normal 0-2 [facility] Clifford Comment on above: Order Comment: Campu s: M Performed By: #### L 200.37814 ####[facility] [id number] [place] [address]Ks# [phone] EOS ABS 0.20 K/CU MM Normal 0-0.5 [facility] Clifford Comment on above: Order Comment: Campu s: M Performed By: #### L 200.98205 ####[facility] [id number] [place] [address]Wm# [phone] Eosinophils/100 WBC Auto (Bld) 3.2 % Normal 0-5 [facility] Clifford Comment on above: Order Comment: Campu s: M Performed By: #### L 200.45526 ####[facility] [id number] [place], [place] [address]Dw# [phone] Erythrocyte distribution width Auto Ratio (RBC) 13.5 % Normal 11-14.5 [facility] Clifford Comment on above: Order Comment: Campu s: M Performed By: #### L 200.96981 ####[facility] [id number] [place], [place] [address]Ph# [phone] Hematocrit Auto Volume Fraction (Bld) 30.8 % Low 41.0-53.0 [facility] Comment on above: Order Comment: Campu s: M Performed By: #### L 200.84427 ####[address] [address]Oe# [phone] Hemoglobin mass conc (Bld) 9.8 g/dL Low 13.5-17.5 [facility] Comment on above: Order Comment: Campu s: M Performed By: #### L 200.61337 ####[facility] [id number] [place], [place] [address]Ph# [phone] IMMATR GRAN ABS 0.00 K/CU MM Normal Less than 2 [facility] Clifford Comment on above: Order Comment: Campu s: M Performed By: #### L 200.83356 ####[facility] [id number] [place], [place] [address]Ph# [phone] IMMATURE GRAN % 0.4 % Normal Less than 2 [facility] Clifford Comment on above: Order Comment: Campu s: M Performed By: #### L 200.30378 ####[facility] [id number] [place] [address]Ni# [phone] Lymphocytes Auto #/vol (Bld) 1.00 K/CU MM Normal 0.9-4.4 [facility] Comment on above: Order Comment: Campu s: M Performed By: #### L 200.54345 ####[facility] [id number] [place], [place] [address]Ph# [phone] Lymphocytes/100 WBC Auto (Bld) 14.0 % Low 20-40 [facility] Comment on above: Order Comment: Campu s: M Performed By: #### L 200.14886 ####[facility] [id number] [place], [place] [address]Ph# [phone] MCHC Auto mass conc (RBC) 31.8 g/dL Low 32.0-36.0 [facility] Comment on above: Order Comment: Campu s: M Performed By: #### L 200.74647 ####[facility] [id number] [place], [place] [address]Ph# [phone] MCV Auto Entitic volume (RBC) 86.8 fL Normal 80.0-99.0 [facility] Comment on above: Order Comment: Campu s: M Performed By: #### L 200.63936 ####[facility] [id number] [place], [place] [address]Ph# [phone] MONO ABS 0.70 K/CU MM Normal 0.1-1.1 [facility] Comment on above: Order Comment: Campu s: M Performed By: #### L 200.56379 ####[facility] [id number] [place], [place] [address]Ph# [phone] Monocytes/100 WBC Auto (Bld) 10.7 % High 2-10 [facility] Comment [facility] above: Order Comment: Campu s: M Performed By: #### L 200.79485 ####[facility] [id number] [place], [place] [address]Ph# [phone] NEUTROPHIL ABS 4.90 K/CU MM Normal 2.0-8.3 [facility] Comment on above: Order Comment: Campu s: M Performed By: #### L 200.58266 ####[facility] [id number] [place], [place] [address]Ph# [phone] Neutrophils/100 WBC Auto (Bld) 71.1 % Normal 45-75 [facility] Comment on above: Order Comment: Campu s: M Performed By: #### L 200.05887 ####[facility] [id number] [place] [address]Cn# [phone] Nucleated RBC/100 WBC Ratio (Bld) 0.0 % Normal Less than 1 [facility] Comment on above: Order Comment: Campu s: M Performed By: #### L 200.37018 ####[place] [address]Ph# [phone] Platelet mean volume Auto Entitic volume (Bld) 9.7 fL Normal 9.4-12.4 [facility] Comment on above: Order Comment: Campu s: M Performed By: #### L 200.03217 ####[address] [address]Fc# [phone] Platelets Auto #/vol (Bld) 315 K/CU MM Normal 150-450 [facility] Comment on above: Order Comment: Campu s: M Performed By: #### L 200.04642 ####[address] [address]Sw# [phone] RBC Auto #/vol (Bld) 3.55 M/CU MM Low 4.50-6.00 [facility] Comment on above: Order Comment: Campu s: M Performed By: #### L 200.60791 ####[facility] [id number] [place] [address]Rt# [phone] WBC Auto #/vol (Bld) 6.9 K/CU MM Normal 4.5-11.0 [facility] Clifford Comment on above: Order Comment: Campu s: M Performed By: #### L 200.81249 ####[facility] [id number] [place] [address]Wm# [phone] Tom 02-06-2018 FERR 85.6 NG/ML Normal 24.0-388.0 [facility] Comment on above: Order Comment: Campu s: M Performed By: #### L 500.93017, L500.89077, L500.49769, L500.19788 ####[facility] [id number] [place], [place] [address]Gu# [phone] GFR ESTon 02-06-2018 IF AMER Greater than 60 Normal [facility] Comment on above: Order Comment: Jorgeu s: M Performed By: #### L 500.80316, L500.04254, L500.74542, L500.23516 ####[facility] CSNFIWXSIX7031 [place], [place] [address]Pg# [phone] IF non-AFR AMER 58 ML/MIN Normal [facility] Comment on above: Order Comment: Jorgeu s: M Performed By: #### L 500.86395, L500.79185, L500.08248, L500.22957 ####[facility] BPFZEIDLXN6956 [place], [place] [address]Xg# [phone] IRON PANELon 02-06-2018 Iron mass conc 44 ug/dL Low 65-175 [facility] Comment on above: Order Comment: Kahlil s: M Result Comment: Macrina ents treated with metal-binding drugs (e.g.deferoxamine)may have depressed iron values, as chelated iron may notproperly react in the Siemens iron assay. Performed By: #### L 500.13249, L500.07677, L500.84376, L500.46605 ####[facility] EUMSXEWPCS3063 [place], [place] [address]Ae# [phone] IRON SAT 13 % Low 30-44 [facility] Comment [facility] above: Order Comment: Jorgeu s: M Performed By: #### L 500.03490, L500.38905, L500.72131, L500.26839 ####[facility] [id number] [place], [place] [address]Nk# [phone] TIBC 337 UG/DL Normal 221-481 [facility] Comment on above: Order Comment: Jorgeu s: M Performed By: #### L 500.50395, L500.74487, L500.30962, L500.85005 ####[facility] DKJIXUQTMQ8389 [place], [place] [address]Kx# [phone] MRSA PCRon 02-06-2018 MRSA PCR Negative Normal NEGATIVE [facility] Comment on above: Order Comment: Kahlil s: M Result Comment: PLEA SE NOTE: TESTING DONE BY PCR TECHNOLOGY. Performed By: #### L 300.91319, L300.36946 ####[facility] [id number] [place], [place] [address]Qs# [phone] SA PCR Positive High NEGATIVE [facility] Comment on above: Order Comment: Kahlil s: M Result Comment: PLEA SE NOTE: TESTING DONE BY PCR TECHNOLOGY. Performed By: #### L 300.50296, L300.82233 ####[facility] [id number] [place], [place] [address]He# [phone] PATIENT RETYPEon 02-06-2018 RETYPE INTERP Negative Normal [facility] Comment on above: Order Comment: Kahlil s: MIs This Patient Going To Surgery? YSurgery Date: 02/20/18 PTon 02-06-2018 INR Coag RelTime (PPP) 1.0 {INR} Normal 0.9-1.1 [facility] Comment on above: Order Comment: Kahlil s: M Result Comment: Rhett mmended PT INR therapeutic range for extermination inspector andprophylactic therapy is 2.0 - 3.0. For heart valve andshunt patients the range is 2.5 - 3.5. Performed By: #### L 300.24293, L300.00492 ####[facility] [id number] [place], [place] [address]Qm# [phone] PTS 11.0 SECONDS Normal 9.4-12.0 [facility] Comment on above: Order Comment: Kahlil steel: M Performed By: #### L 300.74652, L300.41331 ####[facility] [id number] [place], [place] [address]Cv# [phone] PTTon 02-06-2018 aPTT Coag time (Bld) 26.1 s Normal 22.5-31.4 [facility] Comment on above: Order Comment: Kahlil s: Aditya Result Comment: Ther apeutic Heparin Reference Range: High Dose: 56 - 86 seconds (DVT/PE) Low Dose: 50 - 70 seconds (Acute Coronary Syndrome)For low molecular weight heparin or danaparoid, monitoringis often NOT necessary, but the heparin assay, Xa inhibitionassay (send-out) may be used in certain circumstances, asthe PTT is generally insensitive to the effect of theseagents. Direct thrombin inhibitors are becoming more widelyutilized and these drugs are often monitored using the PTT. Performed By: #### L 300.21315, L300.15084 ####[facility] [id number] [place], [place] [address]Ry# [phone] [facility] Note on 08-15-2017 [facility] Note Normal [facility] ([place] Patient Summary Documentson 08-15-2017 Patient Summary Documents Normal [facility] [place] XR WRIST MINIMUM 3 VIEWS LEF Ton 08-15-2017 XR WRIST MINIMUM 3 VIEWS LEFT ORIGINALXR WRIST MINIMUM 3 VIEWS LEFT CLINICAL STATEMENT: fall, pain COMPARISON: None FINDINGS: There is a comminuted intra-articular fracture of the distal left radius. There is no significant displacement or angulation. The distal left ulna is intact. No fracture of the carpal bones is detected. IMPRESSION: Comminuted intra-articular distal left radius fracture. Interpreted By: Bassem Smith MDPreliminary Report By: Bassem Smith MDElectronically Signed By: Bassem Smith MD Dictated Date: 08/15/2017 7:01:58 AM Prelim Date: 08/15/2017 7:01:58 AM Sign Date: 08/15/2017 7:02:58 AM Normal [facility] ([place]) Lab Report: Basic Metabolic Profile (BMP)on 07-04-2017 Anion gap 9 mmol/L Invalid Interpretation Code 5-15 [facility] Work Phone: BUN/Creatinine Ratio 33.3 RATIO High 06-15 [facility] Work Phone: Calcium 8.7 mg/dL Invalid Interpretation Code 8.5-10.1 [employer] Work Phone: [phone] Chloride 103 mmol/L Invalid Interpretation Code 98-107 [employer] Work Phone: [phone] CO2 26.0 mmol/L Invalid Interpretation Code 21.0-32.0 [employer] Work Phone: [phone] Creatinine 1.11 mg/dL Invalid Interpretation Code 0.70-1.30 [employer] Work Phone: [phone] eGFR (non-black) 72 mL/min/{1.73_m2} Invalid Interpretation Code >60 [employer] Work Phone: [phone] eGFR (non-black) 87 mL/min/{1.73_m2} Invalid Interpretation Code >60 [employer] Work Phone: [phone] Glucose mass conc 140 mg/dL High 70-110 [employer] Work Phone: [phone] Potassium molar conc 4.2 mmol/L Invalid Interpretation Code 3.5-5.1 [employer] Work Phone: [phone] Sodium 138 mmol/L Invalid Interpretation Code 136-145 [employer] Work Phone: [phone] Urea nitrogen 37 mg/dL High 7-18 [employer] Work Phone: [phone] Office Visiton 05-25-2017 Documentation of current medications (procedure) Done Invalid Interpretation Code [employer] Phone: [phone] Fall risk assessment No Invalid Interpretation Code [employer] Phone: [phone] Tobacco use [facility] Former smoker Invalid Interpretation Code [employer] Phone: [phone] Replaced Document: Fredmark E CG Observationson 05-25-2017 BUN (urea nitrogen) Sinus Rhythm -Incomp lete right bundle branch block. -Inferior infarct -probably not recent -Old anterior infarct. ABNORMAL Invalid Interpretation Code [employer] Phone: [phone] EKG QRS axis -22 deg Invalid Interpretation Code [employer] Phone: [phone] P Mullen 58 deg Invalid Interpretation Code [employer] Phone: [phone] KS Interval 182 ms Invalid Interpretation Code [employer] Work Phone: [phone] Pulse (Heart Rate) 83 /min Invalid Interpretation Code [facility] Work Phone: [phone] QRS Duration 114 ms Invalid Interpretation Code [facility] Work Phone: [phone] QT Interval new path ms Invalid Interpretation Code [facility] Work Phone: [phone] QTc Hernández 414 ms Invalid Interpretation Code [facility] Work Phone: [phone] T Mullen 1 deg Invalid Interpretation Code [facility] Work Phone: [phone] 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 Left ventricular Ejection fraction 30 % Invalid Interpretation Code [facility] Work Phone: [phone] Vital Signs Date Time Vital Sign Value Performing Clinician Facility 01-13-2025 07:24-0400 SaO2% (BldA) [Mass fraction] 96 % [facility] Comment on above: Order Comment: Specimen Type: ARTERIAL B LOOD SPECIMENOrdering Facility: [facility] Address: [address] [place], [place] [id number] Performed By: #### A LLBG ####[facility] [id number] [facility] [id number] [place], [place] [address] 01-09-2025 16:14-0400 SaO2% (BldA) [Mass fraction] 99 % [facility] Comment on above: Order Comment: Specimen Type: ARTERIAL B LOOD SPECIMENOrdering Facility: [facility] Address: [address] [place], [place] [id number] Performed By: #### A LLBG ####[facility] [id number] [facility] [id number] [address] [address] 01-08-2025 15:00-0400 SaO2% (BldA) [Mass fraction] 93 % [facility] Comment on above: Order Comment: Specimen Type: ARTERIAL B LOOD SPECIMENOrdering Facility: [facility] Address: [address] [id number] Performed By: #### A LLBG ####[facility] [id number] [facility] [id number] [address] [address] 01-08-2025 11:17-0400 SaO2% (BldA) [Mass fraction] 96 % RIGOBERTO GOULD [facility] Comment on above: Order Comment: Specimen Type: ARTERIAL B LOOD SPECIMENOrdering Facility: [facility] Address: [address] [place] [address] [place] [address] Performed By: #### A LLBG ####[facility] RESPIRATORYCLIA [id number] [facility] [id number] [address] [address] 01-07-2025 08:22-0400 Body temperature 97.9 [degF] Dr. Rigoberto Gould MD Work Phone: 9(777)637-584075 [place] [address] 01-07-2025 08:22-0400 Diastolic blood pressure 77 mm[Hg] Dr. Rigoberto abarca MD Work Phone: 7(159)518-445175 [place] [address] 01-07-2025 08:22-0400 Heart rate 71 /min Dr. Rigoberto Gould MD Work Phone: 9(980)539-936975 [place] [address] 01-07-2025 08:22-0400 Respiratory rate 16 /min Dr. Rigoberto Gould MD Work Phone: 7(836)524-853275 [place] [address] 01-07-2025 08:22-0400 SaO2% (BldA) [Mass fraction] 99 % Dr. Rigoberto Gould MD Work Phone: 0(125)069-314275 [place] [address] 01-07-2025 08:22-0400 Systolic blood pressure 125 mm[Hg] Dr. Rigoberto Gould MD Work Phone: 3(936)326-441875 [place] [address] 01-07-2025 06:00-0400 Inhaled oxygen flow rate 2 L/min Dr. Rigoberto abarca MD Work Phone: 5(841)970-320375 [place] [address] 01-06-2025 18:08-0400 Body mass index (BMI) [Ratio] 23.6 kg/m2 Dr. Rigoberto Gould MD Work Phone: 4(606)340-598475 [place] [address] 01-06-2025 18:08-0400 Body weight 74.[address] Rigoberto Gould MD Work Phone: 7(269)539-905849 [place] [address] 01-06-2025 18:06-0400 Body height 177.[address] Rigoberto Gould MD Work Phone: 9(524)921-365375 [place] [address] 12-30-2024 14:43-0400 Body mass index (BMI) [Ratio] 25.4 kg/m2 Jensen Puckett Jr., MD Work Phone: [facility] 12-30-2024 14:43-0400 Body weight 80.29 kg Jensen Puckett Jr., MD Work Phone: [facility] 12-29-2024 18:46-0400 Diastolic blood pressure 78 mm[Hg] Dr. Rigoberto abarca MD Work Phone: 4(358)901-968975 [place] [address] 12-29-2024 18:46-0400 Heart rate 75 /min Dr. Rigoberto Gould MD Work Phone: 5(762)132-851175 [place] [address] 12-29-2024 18:46-0400 Respiratory rate 16 /min Dr. Rigoberto Gould MD Work Phone: 3(788)214-696575 [place] [address] 12-29-2024 18:46-0400 SaO2% (BldA) [Mass fraction] 94 % Dr. Rigoberto Gould MD Work Phone: 5(209)978-614275 [place] [address] 12-29-2024 18:46-0400 Systolic blood pressure 114 mm[Hg] Dr. Rigoberto Gould MD Work Phone: 9(492)147-072275 [place] [address] 12-29-2024 17:00-0400 Body temperature 97.6 [degF] Dr. Rigoberto Gould MD Work Phone: 6(606)904-542575 [place] [address] 12-29-2024 15:16-0400 Body mass index (BMI) [Ratio] 25.4 kg/m2 Dr. Rigoberto Gould MD Work Phone: 3(434)336-272375 [place] [address] 12-29-2024 15:16-0400 Body weight 80.[address] Rigoberto Gould MD Work Phone: 3(878)840-771575 [place] [address] 12-29-2024 14:45-0400 Body mass index (BMI) [Ratio] 25.4 kg/m2 Rigoberto Gould MD Work Phone: [facility] 12-29-2024 14:45-0400 Body weight 80.29 kg Rigoberto Gould MD Work Phone: [facility] 12-29-2024 14:45-0400 Diastolic blood pressure 62 mm[Hg] Rigoberto Gould MD Work Phone: [facility] 12-29-2024 14:45-0400 Heart rate 72 /min Rigoberto Gould MD Work Phone: [facility] 12-29-2024 14:45-0400 SaO2% (BldA) [Mass fraction] 96 % Rigoberto Gould MD Work Phone: [facility] 12-29-2024 14:45-0400 Systolic blood pressure 104 mm[Hg] Rigoberto Gould MD Work Phone: [facility] 12-26-2024 08:15-0400 Body mass index (BMI) [Ratio] 24.5 kg/m2 Dr. Rigoberto Gould MD Work Phone: [facility] 12-26-2024 08:15-0400 Body weight 77.[address] Rigoberto Gould MD Work Phone: [facility] 12-26-2024 08:15-0400 Diastolic blood pressure 62 mm[Hg] Dr. Rigoberto abarca MD Work Phone: 7(538)564-457449 [place] [address] 12-26-2024 08:15-0400 Heart rate 75 /min Dr. Rigoberto Gould MD Work Phone: 8(892)689-854949 [place] [address] 12-26-2024 08:15-0400 Respiratory rate 18 /min Dr. Rigoberto Gould MD Work Phone: 8(748)353-689649 [place] [address] 12-26-2024 08:15-0400 Systolic blood pressure 102 mm[Hg] Dr. Rigoberto Gould MD Work Phone: [facility] 12-22-2024 21:22-0400 Body temperature 97.6 [degF] Dr. Rigoberto Gould MD Work Phone: 3(349)670-335449 [place] [address] 12-22-2024 21:22-0400 Diastolic blood pressure 73 mm[Hg] Dr. Rigoberto abarca MD Work Phone: 0(737)979-780775 [place] [address] 12-22-2024 21:22-0400 Heart rate 72 /min Dr. Rigoberto Gould MD Work Phone: 2(550)187-678075 [place] [address] 12-22-2024 21:22-0400 Respiratory rate 18 /min Dr. Rigoberto Gould MD Work Phone: 7(638)966-360975 [place] [address] 12-22-2024 21:22-0400 SaO2% (BldA) [Mass fraction] 96 % Dr. Rigoberto Gould MD Work Phone: 6(398)227-268075 [place] [address] 12-22-2024 21:22-0400 Systolic blood pressure 124 mm[Hg] Dr. Rigoberto Gould MD Work Phone: 8(778)356-372475 [place] [address] 12-13-2024 15:17-0400 Body mass index (BMI) [Ratio] 25.1 kg/m2 Dr. Rigoberto Gould MD Work Phone: 1(163)849-203675 [place] [address] 12-13-2024 15:17-0400 Body weight 79.[address] Rigoberto Gould MD Work Phone: 4(988)688-848675 [place] [address] 12-13-2024 14:30-0400 Body temperature 97.6 [degF] Dr. Rigoberto Gould MD Work Phone: 1(876)970-916975 [place] [address] 12-13-2024 14:30-0400 Diastolic blood pressure 75 mm[Hg] Dr. Rigoberto abarca MD Work Phone: 0(030)863-371775 [place] [address] 12-13-2024 14:30-0400 Heart rate 84 /min Dr. Rigoberto Gould MD Work Phone: 8(717)054-069575 [place] [address] 12-13-2024 14:30-0400 Respiratory rate 18 /min Dr. Rigoberto Gould MD Work Phone: 4(535)270-534475 [place] [address] 12-13-2024 14:30-0400 SaO2% (BldA) [Mass fraction] 93 % Dr. Rigoberto Gould MD Work Phone: 9(799)035-040575 [place] [address] 12-13-2024 14:30-0400 Systolic blood pressure 118 mm[Hg] Dr. Rigoberto Gould MD Work Phone: 9(340)201-922775 [place] [address] 12-12-2024 09:51-0400 Body height 177.[address] Rigoberto Gould MD Work Phone: 5(408)037-593775 [place] [address] 12-11-2024 18:00-0400 Diastolic blood pressure 78 mm[Hg] Dr. Rigoberto abarca MD Work Phone: 1(268)191-406775 [place] [address] 12-11-2024 18:00-0400 Heart rate 77 /min Dr. Rigoberto Gould MD Work Phone: 3(747)289-813175 [place] [address] 12-11-2024 18:00-0400 Respiratory rate 18 /min Dr. Rigoberto Gould MD Work Phone: 6(056)546-055975 [place] [address] 12-11-2024 18:00-0400 SaO2% (BldA) [Mass fraction] 97 % Dr. Rigoberto Gould MD Work Phone: 0(108)859-205375 [place] [address] 12-11-2024 18:00-0400 Systolic blood pressure 134 mm[Hg] Dr. Rigoberto Gould MD Work Phone: 6(742)452-620575 [place] [address] 12-11-2024 14:17-0400 Body height 177.[address] Rigoberto Gould MD Work Phone: 8(282)886-037775 [place] [address] 12-11-2024 14:17-0400 Body temperature 97.6 [degF] Dr. Rigoberto Gould MD Work Phone: 9(699)859-476875 [place] [address] 12-05-2024 13:16-0400 Body mass index (BMI) [Ratio] 25.68 kg/m2 Alexus Mendez APRN.GUN FERTILIZER Work Phone: 0(737)930-032016 [place] [address] 12-05-2024 13:16-0400 Body temperature 97.3 [degF] Alexus Mendez SQL TECH.GUN FERTILIZER Work Phone: [facility] 12-05-2024 13:16-0400 Body weight 81.19 kg Alexus Mendez SQL TECH.GUN FERTILIZER Work Phone: 1(225)383-684516 [place] [address] 12-05-2024 13:16-0400 Diastolic blood pressure 68 mm[Hg] Alexus Supp an SQL TECH.GUN FERTILIZER Work Phone: [facility] 12-05-2024 13:16-0400 Heart rate 85 /min Alexus Suppan SQL TECH.GUN FERTILIZER Work Phone: [facility] 12-05-2024 13:16-0400 SaO2% (BldA) [Mass fraction] 97 % Alexus Suppan SQL TECH.GUN FERTILIZER Work Phone: [facility] 12-05-2024 13:16-0400 Systolic blood pressure 122 mm[Hg] Alexus Suppa n SQL TECH.GUN FERTILIZER Work Phone: [facility] 10-28-2024 12:56-0500 Body mass index (BMI) [Ratio] 26.9 kg/m2 Dr. Rigoberto Gould MD Work Phone: 3(227)612-887249 [place] [address] 10-28-2024 12:56-0500 Body weight 85.[address] Rigoberto Gould MD Work Phone: 2(882)421-189249 [place] [address] 10-28-2024 12:56-0500 Diastolic blood pressure 85 mm[Hg] Dr. Rigoberto abarca MD Work Phone: 8(580)043-698449 [place] [address] 10-28-2024 12:56-0500 Heart rate 68 /min Dr. Rigoberto Gould MD Work Phone: 3(652)619-339349 [place] [address] 10-28-2024 12:56-0500 Respiratory rate 18 /min Dr. Rigoberto Gould MD Work Phone: 2(066)646-466649 [place] [address] 10-28-2024 12:56-0500 SaO2% (BldA) [Mass fraction] 92 % Dr. Rigoberto Gould MD Work Phone: 2(426)895-248949 [place] [address] 10-28-2024 12:56-0500 Systolic blood pressure 133 mm[Hg] Dr. Rigoberto Gould MD Work Phone: [facility] 10-07-2024 14:38-0500 Body mass index (BMI) [Ratio] 24.39 kg/m2 Alexus Suppan SQL TECH.GUN FERTILIZER Work Phone: [facility] 10-07-2024 14:38-0500 Body weight 77.11 kg Alexus Suppan SQL TECH.GUN FERTILIZER Work Phone: [facility] 10-07-2024 14:38-0500 Diastolic blood pressure 64 mm[Hg] Alexus Supp an SQL TECH.GUN FERTILIZER Work Phone: [facility] 10-07-2024 14:38-0500 Heart rate 78 /min Alexus Suppan SQL TECH.GUN FERTILIZER Work Phone: [facility] 10-07-2024 14:38-0500 Respiratory rate 16 /min Alexus Suppan SQL TECH.GUN FERTILIZER Work Phone: [facility] 10-07-2024 14:38-0500 Systolic blood pressure 116 mm[Hg] Alexus Suppa n SQL TECH.GUN FERTILIZER Work Phone: [facility] 09-04-2024 08:19-0500 Diastolic blood pressure 60 mm[Hg] Alexus Supp an SQL TECH.GUN FERTILIZER Work Phone: [facility] 09-04-2024 08:19-0500 Systolic blood pressure 122 mm[Hg] Alexus Suppa n SQL TECH.GUN FERTILIZER Work Phone: [facility] 09-04-2024 08:05-0500 Body temperature 97 [degF] Alexus Suppan SQL TECH.GUN FERTILIZER Work Phone: [facility] 09-04-2024 08:05-0500 Heart rate 91 /min Alexus Suppan SQL TECH.GUN FERTILIZER Work Phone: [facility] 09-04-2024 08:05-0500 SaO2% (BldA) [Mass fraction] 93 % Alexus Suppan SQL TECH.GUN FERTILIZER Work Phone: [facility] 06-30-2024 13:07-0500 Diastolic blood pressure 62 mm[Hg] Alexus Supp an SQL TECH.GUN FERTILIZER Work Phone: [facility] 06-30-2024 13:07-0500 Systolic blood pressure 118 mm[Hg] Alexus Suppa n SQL TECH.GUN FERTILIZER Work Phone: [facility] 06-30-2024 12:45-0500 Body mass index (BMI) [Ratio] 24.54 kg/m2 Alexus Suppan SQL TECH.GUN FERTILIZER Work Phone: [facility] 06-30-2024 12:45-0500 Body weight 77.56 kg Alexus Suppan SQL TECH.GUN FERTILIZER Work Phone: [facility] 06-30-2024 12:45-0500 Heart rate 60 /min Alexus Suppan SQL TECH.GUN FERTILIZER Work Phone: [facility] 06-30-2024 12:45-0500 Respiratory rate 16 /min Alexus Suppan SQL TECH.GUN FERTILIZER Work Phone: [facility] 06-30-2024 12:45-0500 SaO2% (BldA) [Mass fraction] 95 % Alexus Suppan SQL TECH.GUN FERTILIZER Work Phone: [facility] 03-27-2024 12:36-0400 Diastolic blood pressure 82 mm[Hg] Alexus Supp an SQL TECH.GUN FERTILIZER Work Phone: [facility] 03-27-2024 12:36-0400 Heart rate 66 /min Alexus Suppan SQL TECH.GUN FERTILIZER Work Phone: [facility] 03-27-2024 12:36-0400 SaO2% (BldA) [Mass fraction] 95 % Alexus Suppan SQL TECH.GUN FERTILIZER Work Phone: [facility] 03-27-2024 12:36-0400 Systolic blood pressure 158 mm[Hg] Alexus Suppa n SQL TECH.GUN FERTILIZER Work Phone: [facility] 12-07-2023 14:34-0400 Body weight 77.56 kg Melanie Rushing MD Work Phone: [facility] 12-07-2023 14:34-0400 Diastolic blood pressure 62 mm[Hg] Melanie Rushing MD Work Phone: [facility] 12-07-2023 14:34-0400 Heart rate 68 /min Melanie Rushing MD Work Phone: [facility] 12-07-2023 14:34-0400 SaO2% (BldA) [Mass fraction] 96 % Melanie Rushing MD Work Phone: [facility] 12-07-2023 14:34-0400 Systolic blood pressure 110 mm[Hg] Melanie Rushing MD Work Phone: [facility] 11-08-2023 14:14-0400 Body weight 77.11 kg Alexus Suppan SQL TECH.POPCORN MACHINE OPERATOR Work Phone: [facility] 11-08-2023 14:14-0400 Diastolic blood pressure 92 mm[Hg] Alexus Supp an SQL TECH.POPCORN MACHINE OPERATOR Work Phone: [facility] 11-08-2023 14:14-0400 Heart rate 72 /min Alexus Suppan SQL TECH.POPCORN MACHINE OPERATOR Work Phone: [facility] 11-08-2023 14:14-0400 Respiratory rate 16 /min Alexus Suppan SQL TECH.POPCORN MACHINE OPERATOR Work Phone: [facility] 11-08-2023 14:14-0400 SaO2% (BldA) [Mass fraction] 97 % Alexus Suppan SQL TECH.POPCORN MACHINE OPERATOR Work Phone: [facility] 11-08-2023 14:14-0400 Systolic blood pressure 164 mm[Hg] Alexus Suppa n SQL TECH.POPCORN MACHINE OPERATOR Work Phone: [facility] 05-17-2023 12:10-0400 Body temperature 97.11 [degF] Robinson Henao MD Work Phone: [facility] 05-17-2023 12:10-0400 Body weight 77.02 kg Robinson Henao MD Work Phone: [facility] 05-17-2023 12:10-0400 Diastolic blood pressure 71 mm[Hg] Robinson Henao MD Work Phone: [facility] 05-17-2023 12:10-0400 Heart rate 62 /min Robinson Henao MD Work Phone: [facility] 05-17-2023 12:10-0400 Respiratory rate 18 /min Robinson Henao MD Work Phone: [facility] 05-17-2023 12:10-0400 SaO2% (BldA) [Mass fraction] 94 % Robinson Henao MD Work Phone: [facility] 05-17-2023 12:10-0400 Systolic blood pressure 154 mm[Hg] Robinson Hansen Work Phone: [facility] 10-30-2022 11:02-0500 Body height 177.8 cm Rigoberto Gould MD Work Phone: [facility] 10-30-2022 11:02-0500 Body weight 82.56 kg Rigoberto Gould MD Work Phone: [facility] 10-30-2022 11:02-0500 Diastolic blood pressure 66 mm[Hg] Rigoberto Gould MD Work Phone: [facility] 10-30-2022 11:02-0500 Heart rate 60 /min Rigoberto Gould MD Work Phone: [facility] 10-30-2022 11:02-0500 SaO2% (BldA) [Mass fraction] 95 % Rigoberto Gould MD Work Phone: [facility] 10-30-2022 11:02-0500 Systolic blood pressure 106 mm[Hg] Rigoberto Gould MD Work Phone: [facility] 07-31-2022 11:22-0500 Body height 177.8 cm Rigoberto Gould MD Work Phone: [facility] 07-31-2022 11:22-0500 Body weight 84.37 kg Rigoberto Gould MD Work Phone: [facility] 07-31-2022 11:22-0500 Diastolic blood pressure 80 mm[Hg] Rigoberto Gould MD Work Phone: [facility] 07-31-2022 11:22-0500 Heart rate 58 /min Rigoberto Gould MD Work Phone: [facility] 07-31-2022 11:22-0500 SaO2% (BldA) [Mass fraction] 95 % Rigoberto Gould MD Work Phone: [facility] 07-31-2022 11:22-0500 Systolic blood pressure 118 mm[Hg] Rigoberto Gould MD Work Phone: [facility] 06-05-2022 14:30-0400 Body weight 84.37 kg Rigoberto Gould MD Work Phone: [facility] 06-05-2022 14:30-0400 Diastolic blood pressure 64 mm[Hg] Rigoberto Gould MD Work Phone: [facility] 06-05-2022 14:30-0400 Heart rate 64 /min Rigoberto Gould MD Work Phone: [facility] 06-05-2022 14:30-0400 Systolic blood pressure 132 mm[Hg] Rigoberto Gould MD Work Phone: [facility] 03-06-2022 12:06-0400 Body temperature 98.01 [degF] WDavion Smith MD Work Phone: [facility] 03-06-2022 12:06-0400 Body weight 80.74 kg Samra Smith MD Work Phone: [facility] 03-06-2022 12:06-0400 Diastolic blood pressure 72 mm[Hg] Samra Smith MD Work Phone: [facility] 03-06-2022 12:06-0400 Heart rate 62 /min Samra Smith MD Work Phone: [facility] 03-06-2022 12:06-0400 Systolic blood pressure 143 mm[Hg] Samra Smith MD Work Phone: [facility] 12-02-2021 13:06-0400 Body weight 82.1 kg Rigoberto Gould MD Work Phone: [facility] 12-02-2021 13:06-0400 Diastolic blood pressure 72 mm[Hg] Rigoberto Gould MD Work Phone: [facility] 12-02-2021 13:06-0400 Heart rate 66 /min Rigoberto Gould MD Work Phone: [facility] 12-02-2021 13:06-0400 SaO2% (BldA) [Mass fraction] 93 % Rigoberto Gould MD Work Phone: [facility] 12-02-2021 13:06-0400 Systolic blood pressure 124 mm[Hg] Rigoberto Gould MD Work Phone: [facility] 2020 11:40-0500 BP Diastolic 77 mm[Hg] Nick ARROYO Work Phone: 2020 11:40-0500 BP Systolic 140 mm[Hg] Nick ARROYO Work Phone: 2020 11:40-0500 Pulse (Heart Rate) 52 /min Nick ARROYO Work Phone: 2020 11:40-0500 Pulse Oximetry 95 % Nick ARROYO Work Phone: 2020 11:40-0500 Respiratory Rate 16 /min Nick ARROYO Work Phone: 2020 10:53-0500 Body Temperature 97.5 [degF] Nick ARROYO Work Phone: 2020 07:00-0500 BMI (Body Mass Index) 27.26 kg/m2 Nick ARROYO Work Phone: 2020 07:00-0500 Body weight 86.18 kg Nick ARROYO Work Phone: 2020 07:00-0500 Height 177.8 cm Nick ARROYO Work Phone: 11-03-2020 12:48-0500 Body Temperature 96.91 [degF] Nick ARROYO Work Phone: 11-03-2020 12:48-0500 BP Diastolic 79 mm[Hg] Nick ARROYO Work Phone: 11-03-2020 12:48-0500 BP Systolic 186 mm[Hg] Nick ARROYO Work Phone: 11-03-2020 12:48-0500 Pulse (Heart Rate) 57 /min Nick ARROYO Work Phone: 11-03-2020 12:48-0500 Pulse Oximetry 94 % Nick ARROYO Work Phone: 11-03-2020 12:47-0500 BMI (Body Mass Index) 27.26 kg/m2 Nick ARROYO Work Phone: 11-03-2020 12:47-0500 Body weight 86.18 kg Nick ARROYO Work Phone: 11-03-2020 12:47-0500 Height 177.8 cm Nick ARROYO Work Phone: 11-03-2020 12:47-0500 Respiratory Rate 18 /min Nick ARROYO Work Phone: 05-25-2017 13:57-0400 BMI (Body Mass Index) 24.53 kg/m2 Lee Chacon MD [facility] [email or web address] Work Phone: 05-25-2017 13:57-0400 Body Temperature 98.4 [degF] Lee Chacon MD [facility] Work Phone: 05-25-2017 13:57-0400 BP Diastolic 90 mm[Hg] Lee Chacon MD [facility] Work Phone: 05-25-2017 13:57-0400 BP Systolic 164 mm[Hg] Lee Chacon MD [facility] Work Phone: 05-25-2017 13:57-0400 Height 177.8 cm Lee Chacon MD [facility] Work Phone: 05-25-2017 13:57-0400 Pulse (Heart Rate) 88 /min Lee Chacon MD [facility] Work Phone: 05-25-2017 13:57-0400 Respiratory Rate 18 /min Lee Chacon MD [facility] Work Phone: 05-25-2017 13:57-0400 Weight 77.57 kg Lee Chacon MD [facility] Work Phone: 05-25-2017 13:57-0400 Weight 77.56 kg Lee Chacon MD [facility] Work Phone: Encounters Encounter Date Encounter Type Care Provider Facility Start: 01-22-2025 End: 01-22-2025 Telephone encounter Jensen Puckett MD Work Phone: Urology Comment on above: CIC Clarification Start: 01-21-2025 ambulatory Efewvish Yasmani MANUEL Facility:[facility] Start: 01-09-2025 End: 01-23-2025 Telephone encounter Rigoberto Gould MD Work Phone: [facility] [place] Comment on above: Patient Update Start: 01-08-2025 End: 01-08-2025 Patient Outreach Floyd Richmond RN Work Phone: Field Examiner Management Comment on above: Transition Of Care ( Reach in) Start: 01-07-2025 End: 01-16-2025 Evaluation and management of inpatient EVARISTO DAS Facility:[facility] Start: 01-06-2025 End: 01-07-2025 Dr. Rigoberto Gould MD Work Phone: -Emergency Department Work Phone: Start: 01-06-2025 End: 01-07-2025 Emergency department patient visit Dr. Rigoberto Gould MD Work Phone: [facility] Work Phone: Start: 01-06-2025 End: 01-06-2025 Nursing evaluation of patient and report Nurse [facility] Work Phone: Urology Comment on above: Urine retention (Caprice macey Dx) Start: 01-06-2025 End: 01-06-2025 ambulatory RIGOBERTO GOULD Facility:[facility] Start: 01-05-2025 End: 01-06-2025 Telephone encounter Jensen Puckett MD Work Phone: Urology Start: 01-02-2025 End: 01-02-2025 Telephone encounter Alexus Mendez SQL TECH.GUN FERTILIZER Work Phone: [facility] Comment on above: Medication Problem Start: 12-30-2024 End: 12-30-2024 ambulatory Macey Moe RN NURSE ASSEMBLY CLEANER Start: 12-30-2024 End: 12-30-2024 Patient encounter procedure Macey Moe RN NURSE ASSEMBLY CLEANER Comment on above: Referral Request Urinary retention (P rimary Dx) Start: 12-30-2024 End: 12-30-2024 Telephone encounter Rigoberto Gould MD Work Phone: [facility] Comment on above: Patient Update Start: 12-29-2024 End: 12-29-2024 Dr. Ra Aaron DO -Emergency Department Work Phone: Start: 12-29-2024 End: 12-29-2024 Emergency department patient visit Ra Aaron Facility:[facility] Start: 12-29-2024 End: 12-29-2024 Patient encounter procedure Rigoberto Gould MD Work Phone: [facility] Comment on above: Urinary tract infect ion without hematuria, site unspecified (Primary Dx); Urinary retention Start: 12-29-2024 End: 12-29-2024 ambulatory RIGOBERTO GOULD Facility:[facility] Start: 12-26-2024 End: 12-26-2024 Florencia Brian [facility] Work Phone: Start: 12-26-2024 End: 12-26-2024 ambulatory Rigoberto Gould MD Work Phone: [facility] Comment on above: urine retention Start: 12-22-2024 End: 12-22-2024 Dr. Nicho Nelson [facility] Work Phone: Start: 12-22-2024 End: 12-22-2024 Emergency department patient visit Nicho Nelson Facility:[facility] Start: 12-17-2024 End: 12-17-2024 ambulatory NUPUR DE LA ROSA Facility:[facility] Start: 12-16-2024 End: 12-16-2024 ambulatory Yanet Preciado RN Work Phone: Field Examiner Management Start: 12-15-2024 End: 12-16-2024 Patient Outreach Kristan Fontanez RN Field Examiner Management Comment on above: Transition Of Care ( TCM Initial Hospital Discharge-OON) Start: 12-13-2024 Non-patient / Non-visit Dr. Dulce Restrepo MD -[facility] Work Phone: Start: 12-13-2024 Dr. Sukumar Schilling -[facility] Work Phone: Start: 12-13-2024 Non-patient / Non-visit Dr. Clari Claire MD [facility] Start: 12-13-2024 Dr. Jensen ortega MD [facility] Start: 12-12-2024 ambulatory José Miguel Nunez Facility:[facility] Start: 12-12-2024 Non-patient / Non-visit Dr. Fran RASMUSSEN [facility] Start: 12-12-2024 Dr. José Miguel Nunez MD [facility] Start: 12-12-2024 Non-patient / Non-[facility] Start: 12-12-2024 Dr. [facility] Start: 12-11-2024 ambulatory Jensen Claire Facility :[facility] Start: 12-11-2024 Non-patient / Non-visit [facility] Cl[facility] Start: 12-11-2024 Dr. [facility] Start: 12-11-2024 Non-patient / Non-visit Dr. Marjan Granados MD [facility] Work Phone: Start: 12-11-2024 ambulatory Mary Jo Granados Facility :[facility] Start: 12-11-2024 End: 12-13-2024 Evaluation and management of inpatient Dr. Mary Jo Granados MD -Progressive Care Unit Work Phone: Start: 12-11-2024 End: 12-13-2024 Dr. Sukumar Restrepo MD -[facility] Care [facility] Work Phone: Start: 12-05-2024 End: 12-05-2024 ambulatory ALEXUS MENDEZ Facility:[facility] Start: 12-05-2024 End: 12-05-2024 Office outpatient visit 15 minutes Alexus Mendez SQL TECH.GUN FERTILIZER Work Phone: [facility] [place] Comment on above: Chronic insomnia (Pr imary Dx); URI, acute; Type 2 diabetes mellitus without complication, with long-term current use of insulin (HCC); Arteriosclerotic heart disease (ASHD) Start: 12-03-2024 ambulatory UNKNOWN PROVIDER Facili ty:[facility] Start: 12-03-2024 End: 12-03-2024 Subsequent hospital visit by physician Gi/Gu 1 [facility] Work Phone: Radiology Comment on above: Pain of right hip [M 25.551] Start: 11-26-2024 End: 11-26-2024 Subsequent hospital visit by physician [facility] 1 Work Phone: Molecular Imaging Comment on above: Pain of right hip [M 25.551] Start: 11-26-2024 End: 11-28-2024 ambulatory Alexus Mendez SQL TECH.GUN FERTILIZER Work Phone: [facility] [place] Comment on above: Cough Start: 11-26-2024 End: 11-26-2024 Subsequent hospital visit by physician [facility] 1 Work Phone: Molecular Imaging Comment on above: Pain of right hip [M 25.551] Start: 11-20-2024 End: 11-21-2024 Telephone encounter Rigoberto Gould MD Work Phone: [facility] [place] Comment on above: Home Health Orders Results Start: 11-14-2024 End: 11-14-2024 ambulatory RIGOBERTO GOULD Facility:[facility] Start: 11-14-2024 End: 11-14-2024 Patient encounter procedure Nupur De La Rosa MD Work Phone: Orthopaedics Comment on above: Pain of right hip (P rimary Dx) Start: 11-14-2024 End: 11-14-2024 ambulatory RIGOBERTO Simeon GOULD Facility:[facility] Start: 11-14-2024 End: 11-14-2024 Subsequent hospital visit by physician [facility] Work Phone: Radiology Comment on above: Status post total re placement of right hip [Z96.641] Start: 11-12-2024 End: 11-12-2024 Orders Only Nupur De La Rosa MD Work Phone: Orthopaedics Comment on above: Status post total re placement of right hip (Primary Dx) Start: 11-10-2024 End: 11-11-2024 Telephone encounter Nupur De La Rosa MD Work Phone: Orthopaedics Start: 11-09-2024 End: 11-09-2024 ambulatory Candice Mayer RN NURSE ASSEMBLY CLEANER Comment on above: FYI-No Action Needed Start: 11-09-2024 End: 11-23-2024 Telephone encounter Kolton Hein MD Work Phone: [place] Provider Adult Start: 10-28-2024 End: 10-28-[address] Jensen Claire MD -[facility] Work Phone: Start: 10-28-2024 End: 10-28-2024 Dr. Jensen Claire MD -[facility] Work Phone: Start: 10-28-2024 End: 10-28-2024 ambulatory Jensen Claire [facility] Start: 10-17-2024 End: 10-17-2024 ambulatory NUPUR DE LA ROSA Facility:[facility] Start: 10-17-2024 End: 10-17-2024 Patient encounter procedure Nupur De La Rosa MD Work Phone: Orthopaedics Comment on above: Right leg pain (Prim alexis Dx) Start: 10-08-2024 End: 10-09-2024 Telephone encounter Alexus Mendez SQL TECH.GUN FERTILIZER Work Phone: [facility] [place] Comment on above: Medication Problem Start: 10-07-2024 End: 10-07-2024 ambulatory ALEXUS MENDEZ Facility:[facility] Start: 10-07-2024 End: 10-07-2024 Office outpatient visit 15 minutes Alexus Mendez SQL TECH.GUN FERTILIZER Work Phone: [facility] [place] Comment on above: Itching (Primary Dx) ; Type 2 diabetes mellitus without complication, with long-term current use of insulin (HCC) Start: 10-06-2024 End: 10-06-2024 Telephone encounter Nupur De La Rosa MD Work Phone: Orthopaedics Comment on above: Appointment Start: 10-03-2024 End: 10-03-2024 ambulatory Nupur De La Rosa MD Work Phone: Orthopaedics Comment on above: Pain medication Medication Problem Mechanical complicat ion of internal orthopedic device, implant or graft, initial encounter (HCC) (Primary Dx) Start: 09-22-2024 End: 09-22-2024 Office outpatient visit 25 minutes Maco Rivera PA-C Work Phone: Orthopaedics Comment on above: Instability of prost hetic knee, initial encounter (HCC) (HCC) (Primary Dx); Weakness of right quadriceps muscle; Status post total right knee replacement; Status post total replacement of right hip Start: 09-22-2024 End: 09-22-2024 ambulatory UNKNOWN PROVIDER Facility:[facility] Start: 09-22-2024 End: 09-22-2024 Subsequent hospital visit by physician [facility] Work Phone: Radiology Comment on above: Pain in right hip [M 25.551] Start: 09-17-2024 End: 09-17-2024 ambulatory Alexus Mendez SQL TECH.GUN FERTILIZER Work Phone: [facility] [place] Comment on above: Leg pain Start: 09-12-2024 ambulatory Jensen Claire Facility [facility] Start: 09-04-2024 End: 09-04-2024 Office outpatient visit 15 minutes Alexus Mendez SQL TECH.GUN FERTILIZER Work Phone: [facility] [place] Comment on above: Nausea (Primary Dx); Gastroenteritis; ESRD (end stage renal disease) on dialysis ([facility]) Start: 09-04-2024 End: 09-04-2024 ambulatory ALEXUS A SUPPAN Facility:[facility] Start: 09-03-2024 End: 09-03-2024 Telephone encounter Alexus Mendez SQL TECH.GUN FERTILIZER Work Phone: [facility] [place] Comment on above: Patient Update Start: 09-01-2024 End: 09-01-2024 Telephone encounter Rigoberto Gould MD Work Phone: [facility] [place] Comment on above: Patient Update; Macrina ent Question Start: 08-28-2024 End: 08-28-2024 Orders Only Maco Rivera PA-C Work Phone: Orthopaedics Comment on above: Acute pain of right knee (Primary Dx); Right thigh pain; Pain in right hip Start: 08-25-2024 End: 08-28-2024 Telephone encounter Nupur De La Rosa MD Work Phone: Orthopaedics Comment on above: Appointment Start: 08-12-2024 End: 08-12-2024 Refill Nupur De La Rosa MD Work Phone: Orthopaedics Comment on above: Rx Refills Start: 07-15-2024 End: 07-15-2024 Telephone encounter Alexus Mendez SQL TECH.GUN FERTILIZER Work Phone: [facility] [place] Start: 07-04-2024 End: 07-04-2024 Refill [facility]oberto Gould MD [facility] Phone: [facility] [place] Comment on above: Refill Request Start: 06-30-2024 End: 07-11-2024 Telephone encounter Alexus Mendez SQL TECH.GUN FERTILIZER Work Phone: [facility] [place] Comment on above: Medication Problem Start: 06-30-2024 End: 06-30-2024 ambulatory ALEXUS A SUPPAN Facility:[facility] Start: 06-30-2024 End: 06-30-2024 Office outpatient visit 25 minutes Alexus Mendez APRN.CNP Work Phone: [facility] Comment on above: Ischemic cardiomyopa thy (Primary Dx); Screening for diabetic retinopathy; Screening for depression; Encounter for screening examination for other mental health and behavioral disorders; Arteriosclerotic heart disease (ASHD); Chronic kidney disease (CKD), stage V ([facility]); Encounter for immunization; Gastrointestinal hemorrhage, unspecified gastrointestinal hemorrhage type; Type 2 diabetes mellitus without complication, with long-term current use of insulin ([facility]); PVD (peripheral vascular disease) ([facility]); Hypertension, essential; ESRD (end stage renal disease) on dialysis ([facility]) Start: 06-25-2024 End: 06-25-2024 Patient encounter procedure Nupur De La Rosa MD Work Phone: Orthopaedics Comment on above: Stress fracture of n avicular bone of right foot (Primary Dx); Other closed fracture of proximal end of right tibia, initial encounter Start: 06-25-2024 End: 06-25-2024 ambulatory UNKNOWN PROVIDER Facility:[facility] Start: 06-25-2024 End: 06-25-2024 Subsequent hospital visit by physician [facility] Work Phone: Radiology Comment on above: Pain [R52] Start: 05-19-2024 End: 05-19-2024 ambulatory NUPUR DE LA ROSA Facility:[facility] Start: 05-19-2024 End: 05-19-2024 Patient encounter procedure Nupur De La Rosa MD Work Phone: Orthopaedics Comment on above: Acute right ankle pa in (Primary Dx) Start: 05-07-2024 End: 05-07-2024 Subsequent hospital visit by physician [facility] Work Phone: Radiology Comment on above: Acute right ankle pa in [M25.571] Start: 05-07-2024 End: 05-07-2024 ambulatory RIGOBERTO GOULD Facility:[facility] Start: 05-07-2024 End: 05-07-2024 Patient encounter procedure Nupur De La Rosa MD Work Phone: Orthopaedics Comment on above: Acute right ankle pa in (Primary Dx); Arthritis of right midfoot; Stress fracture of navicular bone of right foot Start: 04-15-2024 End: 04-16-2024 Telephone encounter Nupur De La Rosa MD Work Phone: Orthopaedics Comment on above: Patient Update Start: 04-02-2024 End: 04-02-2024 Patient encounter procedure Nupur De La Rosa MD Work Phone: Orthopaedics Comment on above: Other closed fractur e of proximal end of right tibia, initial encounter (Primary Dx) Start: 04-02-2024 End: 04-02-2024 ambulatory UNKNOWN PROVIDER Facility:[facility] Start: 04-02-2024 End: 04-02-2024 Subsequent hospital visit by physician [facility] Work Phone: Radiology Comment on above: Right knee pain, uns pecified chronicity [M25.561] Start: 03-27-2024 End: 03-27-2024 ambulatory RIGOBERTO GOULD Facility:[facility] Start: 03-27-2024 End: 03-27-2024 Office outpatient visit 25 minutes Alexus Mendez APRN.GUN FERTILIZER Work Phone: [facility] Comment on above: Umbilical hernia wit hout obstruction or gangrene (Primary Dx); Seasonal allergic rhinitis due to pollen; Ischemic cardiomyopathy; History of coronary artery bypass graft; JOHNY (obstructive sleep apnea); PVD (peripheral vascular disease) ([facility]) Start: 03-03-2024 End: 03-03-2024 Patient encounter procedure Nupur De La Rosa MD Work Phone: Orthopaedics Comment on above: Other closed fractur e of proximal end of right tibia, initial encounter (Primary Dx) Start: 03-03-2024 End: 03-03-2024 ambulatory UNKNOWN PROVIDER Facility:[facility] Start: 03-03-2024 End: 03-03-2024 Subsequent hospital visit by physician [facility] Work Phone: Radiology Comment on above: Right knee pain, uns pecified chronicity [M25.561] Start: 02-20-2024 Refill Nupur stone MD Work Phone: Orthopaedics Comment on above: Refill Request Start: 02-15-2024 ambulatory Nupur stone MD Work Phone: Orthopaedics Comment on above: [employer] Start: 02-15-2024 Telephone encounter Nupur De La Rosa MD Work Phone: Orthopaedics Comment on above: Patient Update Start: 02-13-2024 End: 02-13-2024 Subsequent hospital visit by physician [facility] Work Phone: Radiology Comment on above: Acute pain of right knee [M25.561] Start: 02-13-2024 End: 02-13-2024 ambulatory NUPUR DE LA ROSA Facility:[facility] Start: 02-13-2024 End: 02-13-2024 Patient encounter procedure Nupur De La Rosa MD Work Phone: Orthopaedics Comment on above: Acute right ankle pa in (Primary Dx); Acute pain of right knee; Other closed fracture of proximal end of right tibia, initial encounter; Right knee pain, unspecified chronicity; Ankylosing spondylitis of multiple sites in spine ([facility]); PVD (peripheral vascular disease) ([facility]) Start: 02-07-2024 Telephone encounter Nupur De La Rosa MD Work Phone: Orthopaedics Comment on above: Appointment Start: 02-05-2024 Telephone encounter Rigoberto Gould MD Work Phone: [facility] Comment on above: Patient Update Start: 01-14-2024 End: 01-14-2024 Nursing evaluation of patient and report Nurse N[facility] Work Phone: General Surgery Comment on above: Skin lesion of right lower extremity (Primary Dx) Start: 12-28-2023 End: 12-28-2023 Patient encounter procedure Melanie Rushing MD Work Phone: General Surgery Comment on above: Skin lesion of right lower extremity (Primary Dx); Dysesthesia Start: 12-07-2023 End: 12-07-2023 Patient encounter procedure Melanie Rushing MD Work Phone: General Surgery Comment on above: 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 Start: 11-08-2023 End: 11-08-2023 Subsequent hospital visit by physician Herman [facility] [place] Work Phone: Radiology Comment on above: 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] Start: 11-08-2023 End: 11-08-2023 Office outpatient visit 15 minutes Alexus Mendez APRN.POPCORN MACHINE OPERATOR Work Phone: [facility] [place] Comment on above: 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) Start: 05-17-2023 End: 05-17-2023 Patient encounter procedure Robinson Henao MD Work Phone: [place] [facility] Comment on above: URI, acute (Primary Dx) Start: 04-20-2023 End: 12-29-2024 Preprocedural examination done Robinson Henao MD Work Phone: [facility] Work Phone: Start: 01-01-2023 Telephone encounter Rigoberto Gould MD Work Phone: [facility] [place] Comment on above: Admit to Jason Jain n Start: 01-01-2023 End: 01-04-2023 Evaluation and management of inpatient RAMÓN BYRD Facility:[id number] Start: 10-30-2022 End: 10-30-2022 Patient encounter procedure Rigoberto Gould MD Work Phone: [facility] [place] Comment on above: Mononeuropathy due t o underlying disease (Primary Dx); PVD (peripheral vascular disease) ([facility]); 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 due to underlying condition, unspecified proliferative retinopathy type ([facility]); ESRD (end stage renal disease) on dialysis ([facility]); Chronic combined systolic and diastolic CHF (congestive heart failure) ([facility]); Ankylosing spondylitis of multiple sites in spine ([facility]); Hypertension, essential; Ischemic cardiomyopathy; JOHNY (obstructive sleep apnea); Osteopenia, senile; Screening for colon cancer; Type 2 diabetes mellitus without complication, with long-term current use of insulin ([facility]) Start: 07-31-2022 End: 07-31-2022 Patient encounter procedure Rigoberto Gould MD Work Phone: [facility] [place] Comment on above: C. difficile colitis (Primary Dx); Need for vaccination; Arteriosclerotic heart disease (ASHD); Hypertension, essential; Ischemic cardiomyopathy; ESRD (end stage renal disease) on dialysis (HCC); JOHNY (obstructive sleep apnea) Start: 07-26-2022 Telephone encounter Aditya Davis CHELSI-C Work Phone: [facility] [place] Comment on above: Referral Request Start: 07-02-2022 Telephone encounter Aditya Davis CHELSI-C Work Phone: [facility] [place] Comment on above: Medication Problem Start: 06-29-2022 Telephone encounter Aditya Davis CHELSI-C Work Phone: [facility] [place] Comment on above: Patient Update Start: 06-22-2022 Telephone encounter Aditya Davis CHELSI-C Work Phone: [facility] [place] Comment on above: Patient Question Start: 06-08-2022 Telephone encounter Aditya Davis CHELSI-C Work Phone: [facility] [place] Comment on above: FYI-PT plan of care Start: 06-05-2022 End: 06-05-2022 Patient encounter procedure Rigoberto Gould MD Work Phone: [facility] [place] Comment on above: Closed fracture of l eft lower extremity, sequela (Primary Dx); ESRD (end stage renal disease) on dialysis (HCC); Type 2 diabetes mellitus without complication, with long-term current use of insulin (HCC); Hypertension, essential; JOHNY (obstructive sleep apnea); C. difficile colitis; Gastrointestinal hemorrhage, unspecified gastrointestinal hemorrhage type Start: 06-05-2022 Telephone encounter Aditya Bellohanny GAGNON-C Work Phone: [facility] [place] Comment on above: Patient Update Start: 04-25-2022 Telephone encounter Aditya Davis PA-C Work Phone: [facility] [place] Comment on above: Patient Update Start: 04-11-2022 Telephone encounter Aditya Davis PA-C Work Phone: [facility] [place] Comment on above: Results Start: 03-30-2022 Telephone encounter Aditya Davis PA-C Work Phone: [facility] [place] Comment on above: Patient Question Start: 03-06-2022 ambulatory OUMOU Hadley ity:[facility] Start: 03-06-2022 End: 03-06-2022 Office outpatient new 30 minutes Samra Smith MD Work Phone: [facility] Comment on above: Pre-transplant evalu ation for kidney transplant (Primary Dx) Start: 03-06-2022 End: 03-06-2022 Patient encounter status Samra Smith MD Work Phone: [facility] Start: 02-20-2022 ambulatory No [facility] Start: 12-02-2021 End: 12-02-2021 Patient encounter procedure Rigoberto Gould MD Work Phone: [facility] Comment on above: Arteriosclerotic hea rt disease (ASHD) (Primary Dx); Mononeuropathy due to underlying disease; Hypertension, essential; Acute on chronic diastolic congestive heart failure (HCC); Ischemic cardiomyopathy; History of coronary artery bypass graft; Anemia of chronic renal failure, stage 3 (moderate), unspecified whether stage 3a or 3b CKD ([facility]); Chronic kidney disease, stage IV (severe) ([facility]); 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 due to underlying condition, unspecified proliferative retinopathy type ([facility]) Start: 11-14-2021 Telephone encounter Rigoberto Gould MD Work Phone: [facility] [place] Comment on above: Lab Orders Start: 01-26-2021 End: 01-26-2021 Subsequent hospital visit by physician Nick Mancilla MD Work Phone: [facility] Vascular Lab Comment on above: ESRD needing dialysi s ([facility]); Bypass graft stenosis, initial encounter ([facility]) Start: 2020 End: 2020 Subsequent hospital visit by physician Nick Mancilla Work Phone: [facility] General Surgery Comment on above: Chronic kidney disea se, stage IV (severe) (HCC) (Primary Dx) Start: 11-03-2020 End: 11-03-2020 Subsequent hospital visit by physician Nick Mancilla Work Phone: [facility] Pre-Admit Testing Comment on above: Arrived Start: 07-17-2018 End: 07-22-2018 Evaluation and management of inpatient Jensen Peguero Facility:[facility] Start: 07-15-2018 Patient encounter procedure Jensen Peguero Facility:[facility] Start: 07-12-2018 Patient encounter procedure Jensen Peguero Facility:[facility] Start: 07-10-2018 Patient encounter procedure Jensen Peguero Facility:[facility] Start: 07-08-2018 Patient encounter procedure Jensen Peguero Facility:[facility] Start: 07-04-2018 Patient encounter procedure Jensen Peguero Facility:[facility] Start: 05-20-2018 End: 05-21-2018 Patient encounter STACI BRUNO Facility:[facility] Start: 02-20-2018 Evaluation and manag ement of inpatient Jensen Peguero Facility:[facility] Start: 02-15-2018 Patient encounter procedure Jensen Peguero Facility:[facility] Start: 02-13-2018 Patient encounter procedure Jensen Peguero Facility:[facility] Start: 02-12-2018 Patient encounter procedure Jensen Peguero Facility:[facility] Start: 02-06-2018 Patient encounter procedure Jensen Peguero Facility:[facility] Start: 08-15-2017 End: 08-20-2017 Patient encounter OSMAN COOPER Facility:[facility] Start: 08-15-2017 End: 08-15-2017 Emergency department patient visit ARNAUD MILLER Facility:[facility] Procedures Date Procedure Procedure Detail Performing Clinician Start: 01-06-2025 CT of head without contrast Dr. Rigoberto Gould MD Work Phone: Start: 01-06-2025 CT of pelvis without contrast Dr. Rigoberto Gould MD Work Phone: Start: 01-06-2025 Plain x-ray of pelvi s and lower extremity Dr. Rigoberto Gould MD Work Phone: Start: 01-06-2025 Blood count smear mc rscp w/mnl difrntl wbc count Dr. Rigoberto Gould MD Work Phone: Start: 01-06-2025 Calculation of inter national normalized ratio Dr. Rigoberto Gould MD Work Phone: Start: 01-06-[address] Rigoberto Gould MD Work Phone: Start: 01-06-2025 Mean corpuscular hem oglobin concentration determination Dr. Rigoberto Gould MD Work Phone: Start: 01-06-2025 Nucleated red blood cell count procedure Dr. Rigoberto Gould MD Work Phone: Start: 01-06-2025 Platelet mean volume determination Dr. Rigoberto Gould MD Work Phone: Start: 12-29-2024 CT of abdomen and pe lvis without contrast Dr. Rigoberto Gould MD Work Phone: Start: 12-29-2024 Blood count smear mc rscp w/mnl difrntl wbc count Dr. Rigoberto Gould MD Work Phone: Start: 12-29-[address] Rigoberto Gould MD Work Phone: Start: 12-29-2024 Mean corpuscular hem oglobin concentration determination Dr. Rigoberto Gould MD Work Phone: Start: 12-29-2024 Nucleated red blood cell count procedure Dr. Rigoberto Gould MD Work Phone: Start: 12-29-2024 Platelet mean volume determination Dr. Rigoberto Gould MD Work Phone: Start: 12-22-2024 Blood count smear mc rscp w/mnl difrntl wbc count Dr. Rigoberto Gould MD Work Phone: Start: 12-22-2024 Mean corpuscular hem oglobin concentration determination Dr. Rigoberto Gould MD Work Phone: Start: 12-22-2024 Nucleated red blood cell count procedure Dr. Rigoberto Gould MD Work Phone: Start: 12-22-2024 Platelet mean volume determination Dr. Rigoberto Gould MD Work Phone: Start: 12-22-2024 Urine microscopy: red cells Dr. Rigoberto Gould MD Work Phone: Start: 12-22-2024 Urnls dip stick/tabl et reagent auto microscopy Dr. Rigoberto Gould MD Work Phone: Start: 12-22-[address] Agustin Gould MD Work Phone: Start: 12-17-2024 Follow-up visit Follow Up NUPUR DE LA ROSA Start: 12-13-2024 Blood count smear mc rscp w/mnl difrntl wbc count Dr. Rigoberto Gould MD Work Phone: Start: 12-13-[address] Rigoberto Gould MD Work Phone: Start: 12-13-2024 Mean corpuscular hem oglobin concentration determination Dr. Rigoberto Gould MD Work Phone: Start: 12-13-2024 Nucleated red blood cell count procedure Dr. Rigoberto Gould MD Work Phone: Start: 12-13-2024 Platelet mean volume determination Dr. Rigoberto Gould MD Work Phone: Start: 12-12-[address] Rigoberto Gould MD Work Phone: Start: 12-12-2024 Total cholesterol:HD L ratio measurement Dr. Rigoberto Gould MD Work Phone: Start: 12-11-2024 X-ray of chest, PA a nd lateral views Dr. Rigoberto Gould MD Work Phone: Start: 12-11-2024 Serum inorganic phos phate measurement Dr. Rigoberto Gould MD Work Phone: Start: 12-11-[address] Rigoberto Gould MD Work Phone: Start: 12-11-2024 SARS-CoV-2, Influenz a & RSV (PCR) Dr. Rigoberto Gould MD Work Phone: Start: 12-11-2024 Dr. Vanessa Gould MD Work Phone: Start: 12-03-2024 Arthrocentesis aspir &/inj major jt/bursa w/us Yessenia Hewitt PA-C Work Phone: Start: 06-30-2024 Adult depression scr eening assessment Alexus Mendez SQL TECH.[employer] F[employer]IL[employer]ER Work Phone: Start: 04-02-2024 Radiologic exam knee complete 4/more views Ra Whatley PA-C Work Phone: Start: 03-03-2024 Radiologic exam knee complete 4/more views Ra Whatley PA-C Work Phone: Start: 02-13-2024 Radex ankle complete minimum 3 views Nupur De La Rosa MD Work Phone: Start: 11-08-2023 Radiologic examinati on tibia & fibula 2 views Alexus Mendez SQL TECH.[employer] F[employer]IL[employer]ER Work Phone: Start: 05-17-2023 Sars-cov-2 detection by dna/rna Robinson Henao MD Work Phone: Start: 01-03-2023 History of coronary artery bypass grafting Hx of CABG Rigoberto Gould MD Work Phone: Start: 01-01-2023 Antibody screen RAMÓN CORINE Comment on above: Order Comment: Speci men Type: BLOOD SPECIMENOrdering Facility: [facility] Address: [address] [address] Performed By: #### T SCR, %[place], DAGT ####[facility] BLOOD BANKCLIA [id number] [address] Start: 04-28-2022 Antibody screen RAMÓN CORINE Comment on above: Order Comment: Speci men Type: BLOOD SPECIMENOrdering Facility: [facility] Address: [address] [address] Performed By: #### T SCR ####[facility] BLOOD BANKCLIA [id number] [address] [facility] Start: 03-06-2022 End: 03-06-2022 Antibody screen Samra Smith MD Work Phone: Comment on above: Performed By: #### B ILTO, IPB, URICB, TP #### [facility] (DEFAULT) [address] [place] [address] Start: 03-06-2022 Albumin serum plasma /whole blood Samra Smith MD Work Phone: Start: 03-06-2022 ALCOHOL (ETHANOL),BLOOD Samra Smith MD Work Phone: Start: 03-06-2022 CBC AND ELECTRONIC DIFF Samra Smith MD Work Phone: Start: 03-06-2022 Complete blood count with white cell differential, automated Samra Smith MD Work Phone: Start: 03-06-2022 End: 03-06-2022 Hepatitis b surf antibody hbsab Samra Smith MD Work Phone: Start: 03-06-2022 Iaad ia hepatitis b surface antigen Samra Smith MD Work Phone: Start: 01-26-2021 Duplex scan hemodial ysis access Nick Mancilla MD Work Phone: Start: 2020 OPERATIVE REPORT 3m Sca nning Start: 2020 Gluc bld gluc mntr d ev cleared fda spec home use Nick Mancilla Work Phone: Start: 2020 Gluc bld gluc mntr d ev cleared fda spec home use Nick Mancilla Work Phone: Start: 2020 Potassium serum plas ma/whole blood Cade Millan Work Phone: Start: 11-03-2020 Ecg routine ecg w/le ast 12 lds w/i&r Macrikki Leoni Work Phone: Start: 11-03-2020 Basic metabolic pane l calcium total Macrikki Spencer Work Phone: Start: 11-03-2020 Blood count complete automated Mac Spencer Work Phone: Start: 10-08-2020 Adult depression scr eening assessment Rigoberto Gould MD Work Phone: Start: 04-18-2019 History of coronary artery bypass grafting History of coronary artery bypass graft Nick Mancilla MD Work Phone: Start: 03-23-2019 Electrocardiogram Start: 07-17-2018 Antibody screen Jensen Peguero Comment on above: Order Comment: Jorgeu s: M Result Comment: Macrina ent was NOT transfused or in the past 3 months.Antibody screen not indicated. Start: 07-17-2018 Ecg routine ecg w/le ast 12 lds i&r only Jensen Peguero Start: 07-04-2018 Antibody screen Jensen Sudhir Comment on above: Order Comment: Kahlil s: M Start: 02-06-2018 Antibody screen Jensen Peguero Comment on above: Order Comment: Kahlil s: MIs This Patient Going To Surgery? YSurgery Date: 02/20/18 Start: 07-04-2017 End: 07-05-2017 *BMP Lee Chacon MD Start: 05-25-2017 End: 06-11-2017 Cardiovascular stress test using treadmill Lee Chacon MD Start: 05-25-2017 End: 05-25-2017 Ecg routine ecg w/least 12 lds w/i&r Lee Chacon MD Start: 05-25-2017 End: 07-04-2017 Echocardiography Lee Chacon MD Start: 05-25-2017 End: 05-25-2017 Follow Up Appt 3 months Lee Chacon MD Start: 05-25-2017 End: 05-25-2017 MMM Lee Chacon MD Start: 03-27-2017 History of coronary artery bypass grafting Hx of CABG Dr. Sukumar Restrepo MD Comment on above: CARTY to LAD, SVG to PDA, SVG to OM 04/12/2017 @ [facility]; History of coronary artery bypass grafting History of coronary artery bypass graft Rigoberto Gould MD Work Phone: History of coronary artery bypass grafting History of coronary artery bypass graft Alexus Wallace Andrea [employer]O.[employer] F[employer]ILIZER Work Phone: Plan of Treatment Date Care Activity Detail Author Start: 05-19-2028 DTaP/Tdap/Td vaccine (2 - Td or Tdap) DTaP/Tdap/Td vaccine (2 - Td or Tdap) [facility] Work Phone: Start: 05-19-2028 DTaP/Tdap/Td vaccine (2 - Td) DTaP/Tdap/Td vaccine (2 - Td) [facility] Work Phone: Start: 05-19-2028 Urine microalbumin profile [facility] Start: 07-31-2027 PROSTATE CANCER SCREENING DISCUSSION PROSTATE CANCER SCREENING DISCUSSION [facility] Start: 07-31-2027 Prostate specific antigen measurement Prostate Cancer Screening Discussion [facility] Start: 01-16-2026 Complete blood count Hemoglobin/Hematocrit [facility] Start: 01-16-2026 Creatinine measurement Serum Creatinine [facility] Start: 01-08-2026 Complete blood count Hemoglobin/Hematocrit [facility] Start: 01-08-2026 Creatinine measurement Serum Creatinine [facility] Start: 01-06-2026 BP Controlled (<130/80) BP Controlled (<130/80) [facility] Start: 12-29-2025 Annual PCP Team Chronic Disease Visit Annual PCP Team Chronic Disease Visit [facility] Start: 12-29-2025 BP Controlled (<130/80) BP Controlled (<130/80) [facility] Start: 12-05-2025 Annual PCP Team Chronic Disease Visit Annual PCP Team Chronic Disease Visit [facility] Start: 12-05-2025 BP Controlled (<130/80) BP Controlled (<130/80) [facility] Start: 11-14-2025 Complete blood count Hemoglobin/Hematocrit [facility] Start: 10-07-2025 Annual PCP Team Chronic Disease Visit Annual PCP Team Chronic Disease Visit [facility] Start: 10-07-2025 BP Controlled (<130/80) BP Controlled (<130/80) [facility] Start: 09-04-2025 Annual PCP Team Chronic Disease Visit Annual PCP Team Chronic Disease Visit [facility] Start: 09-04-2025 BP Controlled (<130/80) BP Controlled (<130/80) [facility] Start: 06-30-2025 Anxiety Screening Anxiety Screening [facility] Start: 06-30-2025 BP Controlled (<130/80) BP Controlled (<130/80) [facility] Start: 06-30-2025 Covid-19 Vaccine () Covid-19 Vaccine ( season) [facility] Comment on above: Postponed from 04/27/2024 (Declined at t his time) Start: 06-30-2025 Depression Screening Depression Screening [facility] Start: 06-30-2025 Hepatitis A Vaccine (1 of 2 - Risk 2-dose series) Hepatitis A Vaccine (1 of 2 - Risk 2-dose series) [facility] Comment on above: Postponed from 1976 (Declined at t his time) Start: 06-30-2025 RSV Vaccine (1 - Risk 60-74 years 1-dose series) RSV Vaccine (1 - Risk 60-74 years 1-dose series) [facility] Comment on above: Postponed from 2017 (Declined at t his time) Start: 06-30-2025 Shingrix Vaccine (1 of 2) Shingrix Vaccine (1 of 2) [facility] Comment on above: Postponed from 1976 (Declined at t his time) Start: 05-19-2025 Glaucoma screening Dilated Retinal Exam [facility] Start: 05-02-2025 Glaucoma screening Dilated Retinal Exam [facility] Start: 03-23-2025 End: 03-23-2025 Patient encounter procedure 03/23/2025 2:30 PM EDT Office Visit Orthopaedics [address] [address] Nupur De La Rosa MD [address] [address] 6 momth check up Orthopaedics Comment on above: 6 momth check up Start: 02-24-2025 End: 02-24-2025 Patient encounter procedure 02/24/2025 2:00 PM EDT Office Visit Urology [address] [address] Jensen Puckett Jr., MD [address] [place] [address] Puckett Urology Comment on above: cysto per Dr Puckett Start: 01-30-2025 End: 01-30-2025 Patient encounter procedure 01/30/2025 1:45 PM EDT Office Visit Orthopaedics [address] [address] Nupur De La Rosa MD [address] [address] Follow-up on nonoperative sacral fracture Orthopaedics Comment on above: Follow-up on nonoperative sacral fractur e Start: 01-14-2025 End: 01-14-2025 Patient encounter procedure 01/14/2025 4:20 PM EDT Office Visit Family [facility] [address] [place] [address] Rigoberto Gould MD [address] [place] [address] Below follow up visit from e r [facility] [place] Comment on above: Below follow up visit from e r Start: 01-12-2025 End: 01-12-2025 Patient encounter procedure 01/12/2025 11:00 AM EDT Office Visit Family [facility] [place] [address] [place] [address] Rigoberto Gould MD [address] [place], [place] [id number] Hospital F/U [facility] retention [facility] [place] Comment on above: Hospital F/U [facility] retention Start: 01-09-2025 End: 01-09-2025 Patient encounter procedure 01/09/2025 2:45 PM EDT Office Visit Orthopaedics [address] [address] Nupur De La Rosa MD [address] [address] 3 week follow up- R knee Orthopaedics Comment on above: 3 week follow up- R knee Start: 01-07-2025 [facility] Start: 01-06-2025 End: 01-06-2025 Nursing evaluation of patient and report 01/06/2025 1:00 PM EDT Nurse Visit Urology [address] [address] , Nurse [facility] [place] [address] [place], [place] [phone] straight cath bladder drain per Dr Puckett Urology Comment on above: straight cath bladder drain per Dr Rogerio delcid Start: 12-30-2024 End: 12-30-2024 Patient encounter procedure 12/30/2024 2:45 PM EDT Office Visit Urology [address] [address] Jensen Puckett Jr., MD [address] [place], [place] [id number] Urinary retention [R33.9] Urology Comment on above: Urinary retention [R33.9] Start: 12-30-2024 End: 03-31-2025 Bacteria identified in Urine by Culture BACTERIAL CULTURE, URINE Microbiology Routine Urinary retention Expected: 12/30/2024, Expires: 03/31/2025 [facility] Work Phone: Comment on above: Expected: 12/30/2024, Expires: Start: 12-29-2024 [facility] Start: 12-29-2024 End: 12-29-2024 Patient encounter procedure 12/29/2024 2:40 PM EDT Office Visit [facility] [place] [address] [place], [place] [id number] Rigoberto Gould MD [address] [place], [place] [id number] 6 month f/u [facility] [place] Comment on above: 6 month f/u Start: 12-26-2024 Evaluation of diagnostic study results [facility] Start: 12-22-2024 [facility] Start: 12-17-2024 End: 12-17-2024 Patient encounter procedure 12/17/2024 2:30 PM EDT Office Visit Orthopaedics [address] [address] Nupur De La Rosa MD [address] [address] 2 mo follow up- R knee Orthopaedics Comment on above: 2 mo follow up- R knee Start: 12-13-2024 End: 12-13-2024 [facility] Start: 12-13-2024 Hemodialysis care [facility] Start: 12-13-2024 Patient discharge [facility] Start: 12-12-2024 [facility] Start: 12-12-2024 End: 12-12-2024 [facility] Start: 12-12-2024 Hemodialysis care [facility] Start: 12-11-2024 Following clinical pathway protocol [facility] Start: 12-11-2024 Application of elastic bandage [facility] Start: 12-11-2024 Assessment of risk of venous thromboembolism [facility] Start: 12-11-2024 Bacteria identified in Sputum by Culture [facility] Start: 12-11-2024 Care regimes management [facility] Start: 12-11-2024 Elevation of affected extremity [facility] Start: 12-11-2024 Incentive spirometry [facility] Start: 12-11-2024 Inhalation therapy procedure [facility] Start: 12-11-2024 Insertion of catheter into peripheral vein [facility] Start: 12-11-2024 Introduction of urinary catheter [facility] Start: 12-11-2024 Measuring intake and output [facility] Start: 12-11-2024 Notification of physician [facility] Start: 12-11-2024 Oxygen therapy [facility] Start: 12-11-2024 Patient education [facility] Start: 12-11-2024 Providing care according to standard [facility] Start: 12-11-2024 Provision of activity privileges [facility] Start: 12-11-2024 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 to lottery office manager [facility] Start: 12-11-2024 Referral to service [facility] Start: 12-11-2024 End: 12-11-2024 [facility] Start: 12-11-2024 Verification routine [facility] Start: 12-11-2024 Admission procedure [facility] Start: 12-11-2024 Hospital admission, emergency, from emergency room, medical nature [facility] Start: 12-11-2024 Patient referral to dietitian [facility] Start: 12-06-2024 BP Controlled (<130/80) BP Controlled (<130/80) [facility] Start: 12-05-2024 End: 03-06-2025 Hemoglobin A1c in Blood HEMOGLOBIN A1C Lab Routine Type 2 diabetes mellitus without complication, with long-term current use of insulin (HCC) Expected: 12/05/2024, Expires: 03/06/2025 [facility] Work Phone: Comment on above: Expected: 12/05/2024, Expires: Start: 12-05-2024 End: 03-06-2025 LIPID PANEL, NONFASTING LIPID PANEL, NONFASTING Lab Routine Arteriosclerotic heart disease (ASHD) Expected: 12/05/2024, Expires: 03/06/2025 [facility] Comment on above: Expected: 12/05/2024, Expires: Start: 12-05-2024 End: 03-06-2025 Thyrotropin [Units/volume] in Serum or Plasma THYROID STIMULATING HORMONE Lab Routine Type 2 diabetes mellitus without complication, with long-term current use of insulin (HCC) Expected: 12/05/2024, Expires: 03/06/2025 [facility] Comment on above: Expected: 12/05/2024, Expires: Start: 12-05-2024 End: 12-05-2024 Patient encounter procedure 12/05/2024 1:20 PM EDT Office Visit [facility] [place] [address] [place] [address] Alexus Mendez, SQL TECH.GUN FERTILIZER [address] [place] [address] Follow up, cough [facility] [place] Comment on above: Follow up, cough Start: 12-03-2024 End: 12-03-2024 Patient encounter procedure 12/03/2024 9:30 AM EDT Appointment Radiology [address] [place] [address] Rt Hip Aspiration Radiology Comment on above: Rt Hip Aspiration Start: 11-26-2024 End: 11-26-2024 Patient encounter procedure 11/26/2024 1:15 PM EDT Appointment Molecular Imaging [address] [place] [id number] M25.551,NM 3 PHASE,PT CALLING,ORDER IN EPIC [facility] Comment on above: M25.551,NM 3 PHASE,PT CALLING,ORDER IN E PIC Start: 11-26-2024 End: 11-26-2024 Patient encounter procedure 11/26/2024 8:45 AM EDT Appointment Molecular Imaging [address] [place] [phone] M25.551,NM 3 PHASE,PT CALLING,ORDER IN EPIC [facility] Comment on above: M25.551,NM 3 PHASE,PT CALLING,ORDER IN E PIC Start: 11-21-2024 End: 02-20-2025 SYNOVIAL FLUID, CRYSTAL ID/PATHOLOGIST INTERPRETATION SYNOVIAL FLUID, CRYSTAL ID/PATHOLOGIST INTERPRETATION Lab Routine Pain of right hip Status post right hip replacement Expected: 11/21/2024, Expires: 02/20/2025 [facility] Comment on above: Expected: 11/21/2024, Expires: Start: 11-14-2024 End: 11-14-2024 Patient encounter procedure Orthopaedics Comment on above: RIGHT HIP R femur Start: 11-13-2024 Glaucoma screening Dilated Retinal Exam [facility] Start: 10-17-2024 End: 10-17-2024 Patient encounter procedure 10/17/2024 4:15 PM EST Office Visit Orthopaedics [address] [address] Nupur De La Rosa MD [address] [address] Contacted patient due to provider being absent left voicemail- Orthopaedics Comment on above: Contacted patient due to provider being absent left voicemail- Start: 10-08-2024 End: 10-08-2024 Patient encounter procedure 10/08/2024 9:30 AM EST Office Visit Orthopaedics [address] [address] Nupur De La Rosa MD [address] [phone] Follow up (ok per Dr De La Rosa) Orthopaedics Comment on above: Follow up (ok per Dr De La Rosa) Start: 10-07-2024 End: 10-07-2024 Patient encounter procedure 10/07/2024 2:40 PM EST Office Visit [facility] [place] [address] [place] [address] Alexus Mendez APRN.GUN FERTILIZER [address] [place], [place] [phone] dry skin x 3 weeks, location arms, shoulder, stomach and back [facility] [place] Comment on above: dry skin x 3 weeks, location arms, shoul rip, stomach and back Start: 09-26-2024 End: 09-26-2024 Patient encounter procedure Orthopaedics Comment on above: right knee pain right hip/knee pain Start: 09-05-2024 End: 09-05-2024 Patient encounter procedure 09/05/2024 10:30 AM EST Office Visit Orthopaedics [address] [phone] Maco Rivera PA-C [address] [place], [place] [phone] right knee pain Orthopaedics Comment on above: right knee pain Start: 09-04-2024 End: 09-04-2024 Patient encounter procedure 09/04/2024 8:00 AM EST Office Visit [facility] [place] [address] [place], [place] [address] Alexus Mendez APRN.GUN FERTILIZER [address], [place] [address] Has had the flu and unable to go to dialysis this week (,sun,sun ) [facility] [place] Comment on above: Has had the flu and unable to go to dial ysis this week (,sun,sun ) Start: 09-01-2024 End: 09-01-2024 Patient encounter procedure Radiology Comment on above: right knee and hip pain right knee pain Start: 08-27-2024 Diabetic foot examination Diabetic Foot Exam [facility] Comment on above: Postponed from 03/13/2023 (Insurance Cov erage) Start: 08-17-2024 Glaucoma screening Dilated Retinal Exam [facility] Start: 06-30-2024 End: 09-29-2024 CREATININE BLD CREATININE BLD Lab Routine Chronic kidney disease (CKD), stage V (HCC) Expected: 06/30/2024, Expires: 09/29/2024 [facility] Comment on above: Expected: 06/30/2024, Expires: Start: 06-30-2024 End: 09-29-2024 Hematocrit [Volume Fraction] of Blood HEMATOCRIT Lab Routine Chronic kidney disease (CKD), stage V (HCC) Expected: 06/30/2024, Expires: 09/29/2024 [facility] Comment on above: Expected: 06/30/2024, Expires: Start: 06-30-2024 End: 09-29-2024 Hemoglobin [Mass/volume] in Blood HEMOGLOBIN Lab Routine Chronic kidney disease (CKD), stage V (HCC) Expected: 06/30/2024, Expires: 09/29/2024 [facility] Comment on above: Expected: 06/30/2024, Expires: Start: 06-30-2024 End: 09-29-2024 Hemoglobin A1c in Blood HEMOGLOBIN A1C Lab Routine Screening for diabetic retinopathy Expected: 06/30/2024, Expires: 09/29/2024 [facility] Work Phone: Comment on above: Expected: 06/30/2024, Expires: Start: 06-30-2024 End: 09-29-2024 LIPID PANEL, NONFASTING LIPID PANEL, NONFASTING Lab Routine Screening for diabetic retinopathy Arteriosclerotic heart disease (ASHD) Expected: 06/30/2024, Expires: 09/29/2024 [facility] Comment on above: Expected: 06/30/2024, Expires: Start: 06-30-2024 Screening for malignant neoplasm of colon Colorectal Cancer Screening [facility] Comment on above: Postponed from 2002 (Declined at t his time) Start: 06-30-2024 End: 06-30-2024 Patient encounter procedure 06/30/2024 12:40 PM EST Office Visit [facility] [place] [address] [place] [address] Alexus Mendez, SQL TECH.GUN FERTILIZER [address] [place] [address] 3 month f/u [facility] [place] Comment on above: 3 month f/u Start: 06-25-2024 End: 06-25-2024 Patient encounter procedure 06/25/2024 11:30 AM EDT Office Visit Orthopaedics [address] [address] Nupur De La Rosa MD [address] [phone] 1 m f/u, right ankle Orthopaedics Comment on above: 1 m f/u, right ankle Start: 06-07-2024 Annual PCP Team Chronic Disease Visit Annual PCP Team Chronic Disease Visit [facility] Start: 05-19-2024 End: 05-19-2024 Patient encounter procedure 05/19/2024 2:00 PM EDT Office Visit Orthopaedics [address] [phone] Nupur De La Rosa MD [address] [phone] 2 week follow up Orthopaedics Comment on above: 2 week follow up Start: 05-07-2024 End: 05-07-2024 Patient encounter procedure 05/07/2024 1:00 PM EDT Office Visit Orthopaedics [address] [address] Nupur De La Rosa MD [address] [address] 1 month follow up for right knee Orthopaedics Comment on above: 1 month follow up for right knee Start: 04-27-2024 Covid-19 Vaccine () Covid-19 Vaccine () [facility] Start: 04-27-2024 Covid-19 Vaccine () Covid-19 Vaccine () [facility] Start: 04-27-2024 Influenza [facility] Start: 04-23-2024 Creatinine measurement Serum Creatinine [facility] Start: 04-23-2024 Serum Creatinine Serum Creatinine [facility] Start: 04-02-2024 End: 04-02-2024 Patient encounter procedure Orthopaedics Comment on above: Right Knee Fracture - 4 Week Follow Up knee pain Start: 03-03-2024 End: 03-03-2024 Patient encounter procedure Orthopaedics Comment on above: 3 week follow up, right knee fx knee pain Start: 02-13-2024 End: 02-13-2024 Patient encounter procedure 02/13/2024 2:15 PM EDT Office Visit Orthopaedics [address] [address] Nupur De La Rosa MD [address] [address] right tibeal platue fracture was in ER Sonya 02/01 Orthopaedics Comment on above: right tibeal platue fracture was in ER V dino 02/01 Start: 01-14-2024 End: 01-14-2024 Nursing evaluation of patient and report 01/14/2024 2:15 PM EDT Nurse Visit General Surgery [address] [place] [address] Wstr, Nurse Gens [facility] [address] [place] [address] 3 wk suture removal General Surgery Comment on above: 3 wk suture removal Start: 01-05-2024 Complete blood count Hemoglobin/Hematocrit [facility] Start: 01-05-2024 HEMOGLOBIN/HEMATOCRIT HEMOGLOBIN/HEMATOCRIT [facility] Start: 01-05-2024 SERUM CREATININE SERUM CREATININE [facility] Start: 10-31-2023 ANNUAL PCP TEAM CHRONIC DISEASE VISIT ANNUAL PCP TEAM CHRONIC DISEASE VISIT [facility] Start: 10-31-2023 BP CONTROLLED (<130/80) BP CONTROLLED (<130/80) [facility] Start: 10-31-2023 Hepatitis B surface antibody level LDL CHOLESTEROL [facility] Start: 08-27-2023 Advance Directive Discussion Advance Directive Discussion [facility] Start: 08-27-2023 Behavioral Health Screening Behavioral Health Screening [facility] Start: 08-27-2023 Depression Assessment Depression Assessment [facility] Start: 07-31-2023 ANNUAL PCP TEAM CHRONIC DISEASE VISIT ANNUAL PCP TEAM CHRONIC DISEASE VISIT [facility] Start: 07-06-2023 Hepatitis C antibody, confirmatory test DILATED RETINAL EXAM [facility] Start: 06-05-2023 ANNUAL PCP TEAM CHRONIC DISEASE VISIT ANNUAL PCP TEAM CHRONIC DISEASE VISIT [facility] Start: 06-05-2023 HEMOGLOBIN/HEMATOCRIT HEMOGLOBIN/HEMATOCRIT [facility] Start: 05-08-2023 HEMOGLOBIN/HEMATOCRIT HEMOGLOBIN/HEMATOCRIT [facility] Start: 05-06-2023 SERUM CREATININE SERUM CREATININE [facility] Start: 05-02-2023 Hemoglobin A1c measurement HbA1C [facility] Start: 05-02-2023 Hemoglobin A1c/Hemoglobin.total in Blood HBA1C [facility] Start: 04-27-2023 Covid-19 Vaccine () Covid-19 Vaccine () [facility] Start: 04-27-2023 Covid-19 Vaccine () Covid-19 Vaccine () [facility] Start: 04-27-2023 Influenza vaccination Influenza Vaccine (#1) [facility] Start: 04-10-2023 Hepatitis B surface antibody level LDL CHOLESTEROL [facility] Start: 03-13-2023 3 comp foot exam completed DIABETIC FOOT EXAM [facility] Start: 03-13-2023 Diabetic foot examination Diabetic Foot Exam [facility] Start: 12-02-2022 ANNUAL PCP TEAM CHRONIC DISEASE VISIT ANNUAL PCP TEAM CHRONIC DISEASE VISIT [facility] Start: 12-02-2022 BP CONTROLLED (<130/80) BP CONTROLLED (<130/80) [facility] Start: 11-25-2022 3 comp foot exam completed DIABETIC FOOT EXAM [facility] Start: 2022 ADVANCE DIRECTIVE DISCUSSION ADVANCE DIRECTIVE DISCUSSION [facility] Start: 10-30-2022 End: 12-30-2022 Hemoglobin A1c in Blood [facility] Work Phone: Comment on above: Expected: 10/30/2022, Expires: 3 Start: 10-30-2022 End: 12-30-2022 LIPID PANEL, NONFASTING [facility] Work Phone: Comment on above: Expected: 10/30/2022, Expires: 3 Start: 10-11-2022 Hemoglobin A1c/Hemoglobin.total in Blood HBA1C [facility] Start: 06-05-2022 End: 08-05-2022 CBC W Auto Differential panel - Blood [facility] Work Phone: Comment on above: Expected: 06/05/2022, Expires: 2 Start: 04-27-2022 Influenza vaccination [facility] Start: 03-30-2022 End: 05-30-2022 ALBUMIN/CREAT RATIO RND UR ALBUMIN/CREAT RATIO RND UR Lab Routine Hypertension, essential Type 2 diabetes mellitus without complication, with long-term current use of insulin (HCC) Expected: 03/30/2022, Expires: 05/30/2022 [facility] Work Phone: Comment on above: Expected: 03/30/2022, Expires: 2 Start: 03-30-2022 End: 03-30-2023 CBC W Auto Differential panel - Blood CBC + DIFF Lab Routine Hypertension, essential Type 2 diabetes mellitus without complication, with long-term current use of insulin (HCC) Expected: 03/30/2022, Expires: 03/30/2023 [facility] Work Phone: Comment on above: Expected: 03/30/2022, Expires: 3 Start: 03-30-2022 End: 03-30-2023 Comprehensive metabolic 2000 panel - Serum or Plasma COMP METABOLIC PANEL Lab Routine Hypertension, essential Type 2 diabetes mellitus without complication, with long-term current use of insulin (HCC) Expected: 03/30/2022, Expires: 03/30/2023 [facility] Work Phone: Comment on above: Expected: 03/30/2022, Expires: 3 Start: 03-30-2022 End: 05-30-2022 Hemoglobin A1c in Blood HGB A1C Lab Routine Hypertension, essential Type 2 diabetes mellitus without complication, with long-term current use of insulin (HCC) Expected: 03/30/2022, Expires: 05/30/2022 [facility] Work Phone: Comment on above: Expected: 03/30/2022, Expires: 2 Start: 03-30-2022 End: 03-30-2023 Lipid 1996 panel - Serum or Plasma LIPID PANEL BASIC Lab Routine Hypertension, essential Type 2 diabetes mellitus without complication, with long-term current use of insulin (HCC) Expected: 03/30/2022, Expires: 03/30/2023 [facility] Work Phone: Comment on above: Expected: 03/30/2022, Expires: 3 Start: 03-01-2022 PROSTATE CANCER SCREENING DISCUSSION PROSTATE CANCER SCREENING DISCUSSION [facility] Start: 02-21-2022 HEMOGLOBIN/HEMATOCRIT HEMOGLOBIN/HEMATOCRIT [facility] Start: 12-02-2021 End: 02-01-2022 Hemoglobin A1c/Hemoglobin.total in Blood HGB A1C Lab Routine 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 due to underlying condition, unspecified proliferative retinopathy type (HCC) Expected: 12/02/2021, Expires: 02/01/2022 [facility] Work Phone: Comment on above: Expected: 12/02/2021, Expires: 2 Start: 12-02-2021 End: 02-01-2022 LIPID PANEL BASIC LIPID PANEL BASIC Lab Routine Arteriosclerotic heart disease (ASHD) Expected: 12/02/2021, Expires: 02/01/2022 [facility] Work Phone: Comment on above: Expected: 12/02/2021, Expires: 2 Start: 11-14-2021 End: 01-14-2022 ALBUMIN/CREAT RATIO RND UR ALBUMIN/CREAT RATIO RND UR Lab Routine Hypertension, essential Chronic kidney disease, stage IV (severe) (HCC) Type 2 diabetes mellitus without complication, with long-term current use of insulin (HCC) Expected: 11/14/2021, Expires: 01/14/2022 [facility] Work Phone: Comment on above: Expected: 11/14/2021, Expires: 2 Start: 11-14-2021 End: 01-14-2022 CBC W Auto Differential panel - Blood CBC + DIFF Lab Routine Hypertension, essential Chronic kidney disease, stage IV (severe) (HCC) Type 2 diabetes mellitus without complication, with long-term current use of insulin (HCC) Expected: 11/14/2021, Expires: 01/14/2022 [facility] Work Phone: Comment on above: Expected: 11/14/2021, Expires: 2 Start: 11-14-2021 End: 01-14-2022 Comprehensive metabolic 2000 panel - Serum or Plasma COMP METABOLIC PANEL Lab Routine Hypertension, essential Chronic kidney disease, stage IV (severe) (HCC) Type 2 diabetes mellitus without complication, with long-term current use of insulin (HCC) Expected: 11/14/2021, Expires: 01/14/2022 [facility] Work Phone: Comment on above: Expected: 11/14/2021, Expires: 2 Start: 11-14-2021 End: 01-14-2022 Hemoglobin A1c/Hemoglobin.total in Blood HGB A1C Lab Routine Hypertension, essential Chronic kidney disease, stage IV (severe) (HCC) Type 2 diabetes mellitus without complication, with long-term current use of insulin (HCC) Expected: 11/14/2021, Expires: 01/14/2022 [facility] Work Phone: Comment on above: Expected: 11/14/2021, Expires: 2 Start: 11-14-2021 End: 01-14-2022 LIPID PANEL BASIC LIPID PANEL BASIC Lab Routine Hypertension, essential Chronic kidney disease, stage IV (severe) (HCC) Type 2 diabetes mellitus without complication, with long-term current use of insulin (HCC) Expected: 11/14/2021, Expires: 01/14/2022 [facility] Work Phone: Comment on above: Expected: 11/14/2021, Expires: 2 Start: 2021 Potassium monitoring Potassium monitoring [facility] Work Phone: Start: 11-03-2021 Creatinine measurement Creatinine monitoring [facility] Work Phone: Start: 11-03-2021 Potassium monitoring Potassium monitoring [facility] Work Phone: Start: 10-11-2021 ANNUAL PCP TEAM CHRONIC DISEASE VISIT ANNUAL PCP TEAM CHRONIC DISEASE VISIT [facility] Start: 10-08-2021 Adult depression screening assessment DEPRESSION SCREENING [facility] Start: 09-30-2021 COVID-19 VACCINE (4 - Booster for Moderna series) COVID-19 VACCINE (4 - Booster for Moderna series) [facility] Start: 08-27-2021 DEPRESSION ASSESSMENT DEPRESSION ASSESSMENT [facility] Start: 08-25-2021 COVID-19 VACCINE (4 - Booster for Moderna series) COVID-19 VACCINE (4 - Booster for Moderna series) [facility] Start: 08-25-2021 Covid-19 Vaccine (4 - Moderna risk series) Covid-19 Vaccine (4 - Moderna risk series) [facility] Start: 07-01-2021 Hepatitis C antibody, confirmatory test DILATED RETINAL EXAM [facility] Start: 06-01-2021 Hepatitis B surface antibody level LDL CHOLESTEROL [facility] Start: 06-01-2021 SERUM CREATININE SERUM CREATININE [facility] Start: 05-27-2021 3 comp foot exam completed DIABETIC FOOT EXAM [facility] Start: 04-27-2021 Influenza vaccination INFLUENZA (#1) [facility] Start: 03-14-2021 End: 03-14-2021 Patient encounter procedure 03/14/2021 Office Visit Vascular Surgery Nick Mancilla MD [address] [facility] [address] [place] [address] [phone] [facility] Start: 02-25-2021 End: 02-25-2021 Patient encounter procedure 02/25/2021 Appointment General Surgery Nick Mancilla MD [address] [facility] [address] [place] [address] [phone] [facility] General Surgery Start: 02-21-2021 Subsequent hospital visit by physician 02/21/2021 Hospital Encounter Pre-Admission Testing Nick Mancilla MD [address] [facility] [address] [place] [address] [facility] Pre-Admit Testing Start: 12-30-2020 COVID-19 VACCINE (3 - Moderna risk 4-dose series) COVID-19 VACCINE (3 - Moderna risk 4-dose series) [facility] Start: 12-02-2020 COVID-19 Vaccine (2 - Moderna 2-dose series) COVID-19 Vaccine (2 - Moderna 2-dose series) [facility] Work Phone: Start: 11-30-2020 Hemoglobin A1c/Hemoglobin.total in Blood HBA1C [facility] Start: 11-17-2020 End: 11-17-2020 Office Visit 11/17/2020 Office Visit Vascular Surgery Candice Tellez PA-C [address] [place], [place] [id number] [facility] Start: 2020 End: 2020 Appointment 2020 Appointment General Surgery Nick Mancilla MD [address] [place] [address] [phone] [facility] General Surgery Start: 02-22-2019 COLORECTAL CANCER SCREENING COLORECTAL CANCER SCREENING [facility] Start: 02-22-2019 FECAL OCCULT BLOOD FECAL OCCULT BLOOD [facility] Start: 02-22-2019 Screening for malignant neoplasm of colon [facility] Start: 2017 RSV Vaccine (1 - 1-dose 60+ series) RSV Vaccine (1 - 1-dose 60+ series) [facility] Start: 2017 RSV Vaccine (1 - Risk 60-74 years 1-dose series) RSV Vaccine (1 - Risk 60-74 years 1-dose series) [facility] Start: 08-17-2017 End: 08-17-2017 Appointment Appointment [facility] Work Phone: Start: 07-16-2017 End: 07-11-2017 *BMP *BMP [facility] Work Phone: Start: 07-11-2017 End: 04-20-2017 Echocardiography Echocardiogram (complete) [facility] Work Phone: Start: 07-04-2017 End: 07-05-2017 *BMP *BMP [facility] Work Phone: Start: 05-25-2017 End: 05-28-2017 Cardiac Rehab [facility] Work Phone: Start: 05-25-2017 End: 05-25-2017 Cardiovascular stress test using treadmill Treadmill stress test (no imaging) [facility] Work Phone: Start: 05-25-2017 End: 05-25-2017 Echocardiography Echocardiogram (complete) [facility] Work Phone: Start: 05-25-2017 End: 05-25-2017 Follow Up Appt 3 months Follow Up Appt 3 months [facility] Work Phone: Start: 05-25-2017 End: 05-25-2017 Follow Up Appt Other Follow Up Appt Other [facility] Work Phone: Start: 05-25-2017 End: 05-25-2017 MMM MMM [facility] Work Phone: Start: 11-06-2007 Prostate specific antigen measurement PROSTATE CANCER SCREENING DISCUSSION [facility] Start: 11-06-2007 Screening for malignant neoplasm of colon Colon cancer screen colonoscopy [facility] Work Phone: Start: 11-06-2007 Shingles Vaccine (1 of 2) Shingles Vaccine (1 of 2) [facility] Work Phone: Start: 11-06-2007 SHINGRIX VACCINE (1 of 2) SHINGRIX VACCINE (1 of 2) [facility] Start: 11-06-2007 Zoster vaccine hzv live for subcutaneous use ZOSTER (SHINGLES) VACCINE (1 of 2) [facility] Start: 2002 COLOGUARD (FIT-DNA) COLOGUARD (FIT-DNA) [facility] Start: 2002 Colonoscopy [facility] Start: [address] COLONOGRAPHY [facility] Start: 2002 Screening for malignant neoplasm of colon [facility] Start: 2002 SIGMOIDOSCOPY SIGMOIDOSCOPY [facility] Start: 1997 Fasting lipid profile LIPID SCREENING [facility] Start: 1976 ADULT PREVNAR-13 ADULT PREVNAR-13 [facility] Start: 1976 Hepatitis A Vaccine (1 of 2 - Risk 2-dose series) Hepatitis A Vaccine (1 of 2 - Risk 2-dose series) [facility] Start: 1976 HEPATITIS B (1 of 3 - Risk 3-dose series) HEPATITIS B (1 of 3 - Risk 3-dose series) [facility] Start: 1976 SHINGRIX VACCINE (1 of 2) SHINGRIX VACCINE (1 of 2) [facility] Start: 1976 Third diphtheria, tetanus and acellular pertussis (DTaP) vaccination TDAP (ADULT) [facility] Start: 1976 TWO PNEUMOVAX 5 YEARS APART PRIOR TO AGE 65 (#1) TWO PNEUMOVAX 5 YEARS APART PRIOR TO AGE 65 (#1) [facility] Start: 11-06-1975 Anxiety Screening Anxiety Screening [facility] Start: 11-06-1975 BP CONTROLLED (<130/80) BP CONTROLLED (<130/80) [facility] Start: 11-06-1975 Depression Screening Depression Screening [facility] Start: 11-06-1975 HIV SCREENING HIV SCREENING [facility] Start: 11-06-1975 Tetanus vaccination TETANUS [facility] Start: 1973 COVID-19 Vaccine (1 of 2) COVID-19 Vaccine (1 of 2) [facility] Work Phone: Start: 1972 HIV screening HIV screen [facility] Work Phone: Start: 11-06-1967 Diabetic foot examination Diabetic foot exam [facility] Work Phone: Start: 11-06-1967 Diabetic retinal exam Diabetic retinal exam [facility] Work Phone: Start: 11-06-1967 HbA1c (Bld) [Mass fraction] A1C test (Diabetic or Prediabetic) [facility] Work Phone: Start: 11-06-1967 Hemoglobin A1c measurement A1C test (Diabetic or Prediabetic) [facility] Work Phone: Start: 11-06-1967 Lipid panel Lipid screen [facility] Work Phone: Start: 11-06-1963 PNEUMOCOCCAL (1 - PCV) PNEUMOCOCCAL (1 - PCV) [facility] Start: 11-06-1963 Pneumococcal 0-64 years Vaccine (1 of 3 - PCV13) Pneumococcal 0-64 years Vaccine (1 of 3 - PCV13) [facility] Work Phone: Start: 11-06-1963 Pneumococcal 0-64 years Vaccine (1 of 4 - PCV13) Pneumococcal 0-64 years Vaccine (1 of 4 - PCV13) [facility] Work Phone: Start: 1958 HEPATITIS A (1 of 2 - Risk 2-dose series) HEPATITIS A (1 of 2 - Risk 2-dose series) [facility] Start: 05-08-1958 COVID-19 VACCINE (#1) COVID-19 VACCINE (#1) [facility] Start: 1957 Hepatitis C antibody, confirmatory test HEPATITIS C VIRUS SCREENING [facility] Start: 1957 Hepatitis C screening Hepatitis C screen [facility] Work Phone: Bacteria identified in Body fluid by Culture BACTERIAL CULTURE AND GRAM STAIN, STERILE BODY FLUID Microbiology Routine Pain of right hip Status post right hip replacement Ordered: 11/21/2024 [facility] Comment on above: Ordered: 11/21/2024 End: 2020 Blood glucose - POCT Blood glucose - POCT Point of Care Testing Routine One Time for 1 Occurrences starting 2020 until 2020 [facility] Work Phone: Comment on above: One Time for 1 Occurrences starting 10/25 until 2020 C-PEPTIDE C-PEPTIDE Lab Ro utine Pre-transplant evaluation for kidney transplant 03/06/2022 1:13 PM EDT [facility] CDIFF PCR W/RFLX EIA IF POSITIVE CDIFF PCR W/RFLX EIA IF POSITIVE Lab Routine Diarrhea of infectious origin Ordered: 06/29/2022 [facility] Work Phone: Comment on above: Ordered: 06/29/2022 CMV IGG AB CMV IGG AB Lab R outine Pre-transplant evaluation for kidney transplant 03/06/2022 1:13 PM EDT [facility] COLOGUARD COLOGUARD Lab Ro utine Screening for colon cancer Ordered: 10/30/2022 [facility] Work Phone: Comment on above: Ordered: 10/30/2022 EBV VCA IGG AB EBV VCA IGG AB L ab Routine Pre-transplant evaluation for kidney transplant 03/06/2022 1:13 PM EDT [facility] EKG 12 Lead EKG 12 Lead ECG Routine 11/03/2020 1:27 PM EST [facility] Work Phone: End: 12-21-2025 Guidance for arthrocentesis of Major joint IMAGING GUIDED HIP ASPIRATION RIGHT Radiology Routine Pain of right hip Status post right hip replacement 1 Occurrences starting 11/21/2024 until 12/21/2025 [facility] Comment on above: 1 Occurrences starting 11/21/2024 until 12/21/2025 HLA TYPING (SOLID ORGAN) HLA TYP ING (SOLID ORGAN) Lab Routine Pre-transplant evaluation for kidney transplant 03/06/2022 1:13 PM EDT [facility] HSV 1 AND 2 IGG ANTIBODY HSV 1 A ND 2 IGG ANTIBODY Lab Routine Pre-transplant evaluation for kidney transplant 03/06/2022 1:13 PM EDT [facility] HSV IGM ANTIBODY HSV IGM ANTIBOD Y Lab Routine Pre-transplant evaluation for kidney transplant 03/06/2022 1:13 PM EDT [facility] NM Bone 3 Phase Views NM BONE 3 PHASE Radiology Routine Pain of right hip 11/26/2024 2:14 PM EDT [facility] Work Phone: Oxygen therapy [Mini [facility] Data Set] Initiate Oxygen Therapy Protocol Respiratory Care Routine Daily until discontinued starting 2020 [facility] Work Phone: Comment on above: Daily until discontinued starting 2020 Patient Education [facility] Work Phone: Patient referral [facility] Work Phone: Phase I & II - meter ed glucose Phase I & II - metered glucose Point of Care Testing Routine As Needed until discontinued starting 2020 [facility] Work Phone: Comment on above: As Needed until discontinued starting PRA CLASS (PRE-TRANSPLANT) PRA CLASS (PRE-TRANSPLANT) Lab Routine Pre-transplant evaluation for kidney transplant 03/06/2022 1:13 PM EDT [facility] Respiratory pathogen s DNA and RNA panel - Respiratory specimen by AMADOU with probe detection [facility] Spirometry panel Incentive barber metry Respiratory Care Routine Q1H PRN until discontinued starting 2020 [facility] Work Phone: Comment on above: Q1H PRN until discontinued starting 10/25 SURGICAL PATHOLOGY SURGICAL PATH OLOGY Lab Routine Skin lesion of right lower extremity 12/28/2023 3:09 PM EDT [facility] Work Phone: SYNOVIAL FLUID, ROUTINE SYNOVIAL FLUID, ROUTINE Lab Routine Pain of right hip Status post right hip replacement Ordered: 11/21/2024 [facility] Work Phone: Comment on above: Ordered: 11/21/2024 VARICELLA IGG AB (IM M STATUS) VARICELLA IGG AB (IMM STATUS) Lab Routine Pre-transplant evaluation for kidney transplant 03/06/2022 1:13 PM EDT [facility] XR Ankle - right AP and Lateral and oblique XR ANKLE GENERAL 3V AP/LAT/OBL RIGHT Radiology Routine Acute right ankle pain 05/07/2024 1:33 PM EDT [facility] Work Phone: XR Ankle - right AP and Lateral and oblique XR ANKLE GENERAL 3V AP/LAT/OBL RIGHT Radiology Routine Pain 06/25/2024 11:26 AM EDT [facility] Work Phone: End: 09-27-2025 XR Femur - right AP and Lateral XR FEMUR GENERAL 2V AP/LAT RIGHT Radiology Routine Acute pain of right knee Right thigh pain 1 Occurrences starting 08/28/2024 until 09/27/2025 [facility] Comment on above: 1 Occurrences starting 08/28/2024 until 09/27/2025 XR Femur - right AP and Lateral XR FEMUR GENERAL 2V AP/LAT RIGHT Radiology Routine Acute pain of right knee Right thigh pain 09/22/2024 1:56 PM EST [facility] End: 12-12-2025 XR Femur - right AP and Lateral XR FEMUR GENERAL 2V AP/LAT RIGHT Radiology Routine Status post total replacement of right hip 1 Occurrences starting 11/12/2024 until 12/12/2025 [facility] Work Phone: Comment on above: 1 Occurrences starting 11/12/2024 until 12/12/2025 XR Femur - right AP and Lateral XR FEMUR GENERAL 2V AP/LAT RIGHT Radiology Routine Status post total replacement of right hip 11/14/2024 9:46 AM EDT [facility] Work Phone: End: 09-27-2025 XR Pelvis AP XR PELVIS 1V AP Radiology Routine Pain in right hip 1 Occurrences starting 08/28/2024 until 09/27/2025 [facility] Work Phone: Comment on above: 1 Occurrences starting 08/28/2024 until 09/27/2025 XR Pelvis AP XR PELVIS 1V AP Radiology Routine Pain in right hip 09/22/2024 1:56 PM EST [facility] Work Phone: XR Tibia and Fibula - right AP and Lateral XR TIBIA FIBULA 2V AP/LAT RIGHT Radiology Routine 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 11/08/2023 3:15 PM EDT [facility] Work Phone: [facility] Immunizations Immunization Date Immunization Notes Care Provider Sejal monaejefe 06-07-2024 Seasonal, trivalent, recombinant, injectable influenza vaccine, preservative free Alexus Suppan [employer] Work Phone: [facility] 06-19-2023 influenza virus vaccine, unspecified formulation Nupur De La Rosa MD Work Phone: [facility] 02-06-2023 Hepatitis B vaccine (recombinant), CpG adjuvanted Alexus Suppan [employer] Work Phone: [facility] 12-05-2022 Hepatitis B vaccine (recombinant), CpG adjuvanted Alexus Suppan [employer] Work Phone: [facility] 11-08-2022 Hepatitis B vaccine (recombinant), CpG adjuvanted Alexus Suppan [employer] Work Phone: [facility] 10-10-2022 Hepatitis B vaccine (recombinant), CpG adjuvanted Alexus Suppan [employer] Work Phone: [facility] 07-31-2022 pneumococcal (PCV20) vaccine, 20 valent (PREVNAR 20) Rigoberto Gould MD Work Phone: [facility] 07-31-2022 pneumococcal Conjugate, unspecified formulation Rigoberto Gould MD Work Phone: [facility] Work Phone: 07-15-2022 COVID-19 vaccine, ag e 12+ yr, bivalent (PFIZER-BIONTECH) 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 Rigoberto Gould MD Work Phone: [facility] 05-24-2021 influenza, injectabl e, quadrivalent, preservative free Rigoberto Gould MD Work Phone: [facility] 05-24-2021 influenza virus vaccine, unspecified formulation Samra Smith MD Work Phone: [facility] 05-10-2021 Hepatitis B vaccine (recombinant), CpG adjuvanted Rigoberto Gould MD Work Phone: [facility] 03-08-2021 Hepatitis B vaccine (recombinant), CpG adjuvanted Rigoberto Gould MD Work Phone: [facility] 02-08-2021 Hepatitis B vaccine (recombinant), CpG adjuvanted Rigoberto Gould MD Work Phone: [facility] 01-06-2021 Hepatitis B vaccine (recombinant), CpG adjuvanted Rigoberto Gould MD Work Phone: [facility] 12-02-2020 Covid (Moderna) Dr. Rigoberto Gould MD Work Phone: [facility] 11-04-2020 Covid (Moderna) Dr. Rigoberto Gould MD Work Phone: [facility] 10-01-2020 influenza, injectabl e, quadrivalent, contains preservative Nick Mancilla [facility] Work Phone: 10-01-2020 influenza, injectabl e, quadrivalent, preservative free Dr. Rigoberto Gould MD Work Phone: [facility] 10-01-2020 influenza, seasonal, injectable, preservative free Rigoberto Gould MD Work Phone: [facility] Work Phone: 08-29-2018 influenza, seasonal, injectable, preservative free Rigoberto Gould MD Work Phone: [facility] 07-11-2018 influenza nasal, unspecified formulation Rigoberto Gould MD Work Phone: [facility] Work Phone: 07-11-2018 influenza virus vaccine, unspecified formulation Nick ARROYO Work Phone: 07-11-2018 influenza, injectabl e, quadrivalent, contains preservative Nick Mancilla [facility] Work Phone: 07-11-2018 influenza, injectabl e, quadrivalent, preservative free Dr. Rigoberto Gould MD Work Phone: [facility] 05-19-2018 tetanus toxoid, reduced diphtheria toxoid, and acellular pertussis vaccine, adsorbed Nick Mancilla [facility] Work Phone: 05-30-2016 influenza nasal, unspecified formulation Rigoberto Gould MD Work Phone: [facility] Work Phone: 05-30-2016 influenza virus vaccine, unspecified formulation Nick ARROYO Work Phone: 05-30-2016 influenza, injectabl e, quadrivalent, contains preservative Rigoberto Gould MD Work Phone: [facility] 06-19-2015 influenza nasal, unspecified formulation Rigoberto Gould MD Work Phone: [facility] 06-19-2015 influenza virus vaccine, unspecified formulation Nick ARROYO Work Phone: 06-19-2015 influenza, injectabl e, quadrivalent, contains preservative Nick Mancilla [facility] Work Phone: 06-19-2015 influenza, injectabl e, quadrivalent, preservative free Dr. Rigoberto Gould MD Work Phone: [facility] 06-19-2015 influenza, seasonal, injectable, preservative free Rigoberto Gould MD Work Phone: [facility] Work Phone: Payers Date Payer Category Payer Medicare (Managed Care) ELISSA BANDA ADVANTAGE HMO [id number] 2024 Unknown ANTHEM BLUE CROS S AND BLUE SHIELD ANTHEM MEDICARE ADVANTAGE HMO [id number] 2024-Present [phone] [address] [place] [address] HMO [id number] 2024 Unknown [id number] 2021 Medicaid [id number]. [id number] 2021 Medicare [id number]. [id number] 2021 Medicare [id number] [id number]. [id number] 2021 Medicare [id number] 2020 Medicaid [id number]. [id number] 2017 Self-pay 2017 Unknown [id number] 2017 Unknown [id number] 2010 Unknown [id number] 1957 Unknown [id number] 2.16.840.1.668349.3.579.2. 594 1957 Unknown [id number] 2.16.840.1.901368.3.579.2. 627 1957 Unknown [id number] 2.16.840.1.733025.3.579.2. 627 1920 Unknown [id number] 2.16.840.1.630848.3.579.2. 627 Unknown [id number] 2.16.840.1.442323.3.579.2. 273 Unknown [id number] 2.16.840.1.034542.3.579.2. 273 Unknown [id number] 2.16.840.1.325275.3.579.2. 273 Unknown [id number] 2.16.840.1.774994.3.579.2. 273 Unknown [id number] 2.16.840.1.953258.3.579.2. 273 Unknown [id number] 2.16.840.1.602375.3.579.2. 273 Unknown [id number] 2.16.840.1.952151.3.579.2. 273 Unknown [id number] 2.16.840.1.473095.3.579.2. 273 Unknown [id number] 2.16.840.1.719794.3.579.2. 273 Unknown [id number] 2.16.840.1.176584.3.579.2. 273 Unknown [id number] 2.16.840.1.297647.3.579.2. 273 Unknown [id number] 2.16.840.1.559303.3.579.2. 462 Unknown [id number] 2.16.840.1.694813.3.579.2. 462 Unknown [id number] 2.16.840.1.746053.3.579.2. 462 Unknown [id number] 2.16.840.1.456718.3.579.2. 462 Unknown [id number] 2.16.840.1.909220.3.579.2. 462 Unknown [id number] 2.16.840.1.282188.3.579.2. 462 Unknown [id number] 2.16.840.1.263453.3.579.2. 462 Unknown [id number] 2.16.840.1.355347.3.579.2. 462 Unknown [id number] 2.16.840.1.173442.3.579.2. 462 Unknown [id number] 2.16.840.1.762680.3.579.2. 462 Unknown [id number] 2.16.840.1.414895.3.579.2. 462 Unknown [id number] 2.16.840.1.892067.3.579.2. 462 Unknown [id number] 2.16.840.1.199457.3.579.2. 462 Unknown [id number] 2.16.840.1.350832.3.579.2. 462 Unknown [id number] 2.16.840.1.727225.3.579.2. 462 Social History Date Type Detail Facility Start: 11-03-2020 End: 06-05-2022 Tobacco smoking status NHIS Never smoker [facility] Work Phone: Start: 11-03-2020 End: 06-05-2022 Tobacco use and exposure Former user [employer] Phone: End: 04-17-2017 History of tobacco use Chews Tobacco [employer] Phone: Start: 11-03-2020 End: 01-12-2021 Alcohol intake Ex-drinker (finding) [employer] Phone: Start: 1955 Sex Assigned At Not on file [employer] Phone: Start: 11-22-2021 End: 07-31-2022 Exposure to SARS-CoV-2 (event) Not sure [employer] Phone: Start: 04-18-2021 End: 01-08-2025 Alcohol intake Current non-drinker of alcohol (finding) [facility] Start: 10-08-2020 History SDOH Alcohol Std Drinks 98 [facility] Start: 03-28-2017 History SDOH Alcohol Comment seldom [facility] Start: 10-08-2020 End: 11-30-2021 History SDOH Social Connections Living 3 [facility] Start: 10-08-2020 End: 11-30-2021 History SDOH Physical Activity DPW 0 [facility] Start: 10-08-2020 End: 01-02-2023 History SDOH Stress 1 [facility] Start: 10-08-2020 End: 01-02-2023 History SDOH Housing Homeless Last Year 2 [facility] Start: 04-18-2021 Education 12 [facility] Start: 1955 Sex Assigned At Male [facility] Start: 11-30-2021 End: 01-02-2023 History SDOH Financial 5 [facility] Tobacco smoking stat us NHIS Tobacco smoking consumption unknown [facility] Start: 11-30-2021 End: 09-20-2022 History of Social function [facility] Start: 11-30-2021 End: 09-20-2022 Social connection and isolation panel [facility] Do you belong to any clubs or organizations such as islam groups, unions, fraternal or athletic groups, or school groups? No [facility] Are you now , , , , never or living with a partner? [facility] How often to you hav e a drink containing alcohol? Never [facility] Average Number of Drinks Not on file [facility] Work Phone: Do you feel stress - tense, restless, nervous, or anxious, or unable to sleep at night because your mind is troubled all the time - these days [OSQ] Not at all [facility] (I/We) worried evelyne er (my/our) food would run out before (I/we) got money to buy more. Never true [facility] Work Phone: Start: 04-07-2021 Gender identity Identifies as male gender (finding) [facility] Start: 04-07-2021 Sexual orientation Heterosexual (finding) [facility] Start: 12-11-2024 End: 01-06-2025 Tobacco smoking status NHIS Ex-smoker (finding) [facility] Start: 09-29-2020 None None [facility] Start: 09-29-2020 Spouse/ Significant Other Spouse/ Significant Other [facility] Start: 10-03-2020 Non-smoker Non-smoker [facility] Start: 12-11-2024 End: 12-13-2024 Sex Male (finding) [facility] Medical Equipment Procedure Code Equipment Code Equipment Origin al Text Equipment Identifier Dates Insertion, catheter, hemodialysis CATHETER, CVD PLNDRME 19CM FDA Start: 09-30-2020 Insertion, catheter, hemodialysis CATHETER, CVD PLNDRME 19CM FDA Start: 09-30-2020 Insertion, catheter, hemodialysis FDA Start: 09-30-2020 Dvc-Zk-R-Kind Implant - [id number] Start: 04-28-2022 Cement Simplex P Tobramycin Bone Full Dose Radiopaque Preblend Sterile - [id number] Start: 01-01-2023 T2 Femoral Nail Retrograde Strl 10mm X 200mm [id number] Start: 01-01-2023 Advanced Locking Screw 5mm X 35mm Sterile [id number] Start: 01-01-2023 Cement Simplex P Tobramycin Bone Full Dose Radiopaque Preblend Sterile - [id number] Start: 01-01-2023 Jpk-Ib-H-Kind Implant - [id number] Start: 04-28-2022 Zqi-Sj-W-Kind Implant - [id number] Start: 04-28-2022 Qmb-Ur-J-Kind Implant - [id number] Start: 04-28-2022 Wnw-Nl-Z-Kind Implant - [id number] Start: 04-28-2022 Prg-Hq-M-Kind Implant - [id number] Start: 04-28-2022 Ggp-Az-L-Kind Implant - [id number] Start: 04-28-2022 Jhp-Tk-C-Kind Implant - [id number] Start: 04-28-2022 Pmb-Xe-E-Kind Implant - [id number] Start: 04-28-2022 Ujm-Mx-U-Kind Implant - [id number] Start: 04-28-2022 Aux-Et-I-Kind Implant - [id number] Start: 04-28-2022 Advanced Locking Screw 5mm X 55mm Sterile [id number] Start: 01-01-2023 Advanced Locking Screw 5mm X 80mm Sterile [id number] Start: 01-01-2023 Advanced Locking Screw 5mm X 35mm Sterile [id number] Start: 01-01-2023 T2 Alpha Locking Screw 5mm X 75mm [id number] Start: 01-01-2023 Use one needle f or each dose. once/day. [id number] Start: 06-30-2024 Goals Date Patient Goal Desired Activity /State Functional Status Date Assessment Result Facility 01-16-2025 Are you deaf, or do you have serious difficulty hearing Yes 01/16/2025 10:20 AM Libby Marie RN Yes [facility] 01-16-2025 Are you blind, or do you have serious difficulty seeing, even when wearing glasses No 01/16/2025 10:20 AM Libby Marie RN No [facility] 01-16-2025 Do you have serious difficulty walking or climbing stairs Yes 01/16/2025 10:20 AM Libby Marie RN Yes [facility] 01-16-2025 Do you have difficul ty dressing or bathing Yes 01/16/2025 10:20 AM Libby Marie RN Yes [facility] 01-16-2025 Because of a physica l, mental, or emotional condition, do you have difficulty doing errands alone such as visiting a physician's office or shopping Yes 01/16/2025 10:20 AM Libby Marie RN Yes [facility] 12-13-2024 Functional status [facility] Work Phone: 05-08-2022 Are you deaf, or do you have serious difficulty hearing Yes 05/08/2022 11:30 AM Avelina Gan RN Yes [facility] 05-08-2022 Are you blind, or do you have serious difficulty seeing, even when wearing glasses No 05/08/2022 11:30 AM Avelina Gan, RN No [facility] 05-08-2022 Do you have serious difficulty walking or climbing stairs Yes 05/08/2022 11:30 AM EDT Avelina Collins, RN Yes [facility] 05-08-2022 Do you have difficul ty dressing or bathing Yes 05/08/2022 11:30 AM EDT Avelina Collins, RN Yes [facility] 05-08-2022 Because of a physica l, mental, or emotional condition, do you have difficulty doing errands alone such as visiting a physician's office or shopping Yes 05/08/2022 11:30 AM EDT Avelina Collins, RN Yes [facility] Mental Status Date Assessment Result Facility 01-16-2025 Because of a physica l, mental, or emotional condition, do you have serious difficulty concentrating, remembering, or making decisions Yes 01/16/2025 10:20 AM EDT Libby Rodas, BISMARK Yes [facility] 12-13-2024 Cognitive function Voice/Name [facility] Work Phone: 05-08-2022 Because of a physica l, mental, or emotional condition, do you have serious difficulty concentrating, remembering, or making decisions No 05/08/2022 11:30 AM EDT Avelina Collins RN No [facility] Clinical Notes 04-08-2019 to 01-22-2025 Telephone Encounter - Lissette Sanabria RN - 01/22/2025 9:09 AM EDTTelephone Encounter - Lissette Sanabria RN - 01/22/2025 9:09 AM EDTTelephone Encounter - Rebecca Moe LPN - 01/09/2025 9:25 AM EDT Note Date & Type Note Facility 01-22-2025 Telephone encounter Note Vandana WEINBERG calling from [employer] calling ([phone]) to clarify if the cath once weekly on was a legitimate order. After reviewing discharge summary from inpatient stay it is a valid order. [place] 5/325 1 tablet before transport to dialysis, before physical therapy, and for his weekly urinary catheterization on urinary catheterization because of recurrent UTIs to be done weekly on THURSDAYS She is aware that it is the correct order. Verbalizes understanding. [facility] 01-22-2025 Miscellaneous Notes Vandana WEINBERG calling from [employer] calling ([phone]) to clarify if the cath once weekly on was a legitimate order. After reviewing discharge summary from inpatient stay it is a valid order. [place] 5/325 1 tablet before transport to dialysis, before physical therapy, and for his weekly urinary catheterization on urinary catheterization because of recurrent UTIs to be done weekly on THURSDAYS She is aware that it is the correct order. Verbalizes understanding. documented in this encounter [facility] 01-16-2025 Note HNO ID: [id number] Author: IVETT BENITEZ RN Service: Care Management Author Type: Registered Nurse Type: Care Mgt Progress Note Filed: 01/16/2025 09:22 Note Text: CARE MANAGEMENT DISCHARGE NOTE SERVICE DATE: January 16, 2025 SERVICE TIME: 9:19 AM Admission Date: 01/07/2025 LOS: 3 days Discharge Arrangement Discharge Ar[facility]ement: [facility] Was an expedited discharge program used?: No Services Arranged Medical Services: Other: See Comment Provider Name: Fabian Hazel Caregiver Assessment Caregiver is ready, willing and able to meet the patient's needs as recommended by the inter-professional team: Yes Name of Caregiver: Fabian Delvalle Yasemin Transportation Arrangements Transportation Arrangements: Ambulance Transportation Agency and Phone #:: [facility] [phone] Date of Trip: 01/16/25 Time of Trip: 1100 Type of Service: BLS Non-emergency Is Patient Medicaid Pending?: No Was transportation financial coverage discussed with family?: Patient, Spouse [employer] Location: [place] Destination: [facility] Financial Care Management Responsibility: None Handoff Communication: Handoff to: Primary Care Physician, Other Caregiver Primary Care Physician Name/Phone: Rigoberto Gould [phone] Other Caregiver Name/Phone: Fabian Hazel [phone] Additional Information: Discharge written for patient to go to SNF. [facility] accepted and precert has been obtained. Patient and are agreeable to discharge plan and deny needs. Ambulance transport scheduled for 11 AM orange picker. Bedside nurse updated. SOC sent to PCP and SNF. Discharge orders sent to [facility] via transitions. Envelope on chart with number to call report. SIGNATURE: Ivett Benitez RN PATIENT NAME: Mauri Quinones DATE: January 16, 2025 TIME: 9:19 AM [facility] 01-15-2025 Note HNO ID: [id number] Author: IVETT BENITEZ, BISMARK Service: Care Management Author Type: Registered Nurse Type: Care Mgt Progress Note Filed: 01/15/2025 16:44 Note Text: CARE MANAGEMENT PROGRESS NOTE SERVICE DATE: 01/15/2025 SERVICE TIME: 4:43 PM LOS: 2 days Needs Prior to Discharge: To Be Determined IMM Follow Up Copy Given: Yes Copy given to:: Patient (And at bedside) Method: In Person EMR reviewed. Dr Das advised of plan to d/c tomorrow. Asked CM to set up transport for 11AM tomorrow. Referral to [facility] updated. Transport confirmed for 11AM orange picker. Patient and updated. SIGNATURE: Ivett Benitez RN PATIENT NAME: Mauri Quinones DATE: January 15, 2025 TIME: 4:43 PM [facility] 01-15-2025 Note HNO ID: [id number] Author: CECY OSBORNE RN Service: Dialysis Author Type: Registered Nurse Type: Progress Notes Filed: 01/15/2025 14:02 Note Text: Hemodialysis complete. 3.5 hour run, 2k bath. Net fluid removed = 2000 ml. Pt tolerated HD tx well. LUE AVF: Site bruised. Thrill and bruit present. Needle site pressure held 10 min venous and 15 min arterial. Hemostasis achieved. Report given to primary RN, Libby Rodas [facility] 01-15-2025 Note HNO ID: [id number] Author: MACEY VILLALBA APRN.CNP Service: Wound/Ostomy Author Type: Nurse Practitioner Type: Plan of Care Filed: 01/15/2025 11:49 Note Text: WOUND CARE SERVICE CONSULT NOTE SERVICE DATE: 01/15/2025 SERVICE TIME: 1148 Wound Consult (From admission, onward) Start Ordered 01/15/25 0730 Wound Care Consult ONCE Electronically Signed By: Evaristo Das MD [ ] 01/15/25 0721 Attempted to see pt regarding wound care consult placed for coccyx wound. Unable to see pt d/t pt being off unit in dialysis. Will attempt to see pt at a future time as schedule permits. Thank you for including me in the care of this patient. Please re-consult our service if further wound care needs arise. SIGNATURE: Macey Villalba APRN.GUN FERTILIZER PATIENT NAME: Mauri Quinones DATE: January 15, 2025 TIME: 11:48 AM [facility] 01-15-2025 Note HNO ID: [id number] Author: EVARISTO DAS MD Service: Hospital Medicine Author Type: Physician Type: Progress Notes Filed: 01/15/2025 15:06 Note Text: DEPARTMENT OF HOSPITAL MEDICINE PROGRESS NOTE SERVICE DATE: 01/15/2025 SERVICE TIME: 10:51 AM Hospital Medicine/Primary Attending: Evaristo Das MD NIGHT AND WEEKEND COVERAGE: [place] COVERAGE: Nights: [phone], please page [facility] Night [facility] pager [phone]. Probable discharge: 01/12 Disposition: nursing home facility Consultants: Dr. Saucedo for orthopedics Dr. Loredo for nephrology PROCEDURES: NONE CODE STATUS: Full code ACCEPTS BLOOD PRODUCTS: YES : ASSESSMENT/PLAN Reason for Admission: Left superior ramus pelvic fracture fracture Anticoagulation: Prior to admission: Apixaban Current: Apixaban Smoking history: Never Diagnostic tests reviewed for today's visit: Most recent labs Most recent imaging Most recent EKG INTERVAL EVENTS: Mauri Quinones is a 69 year old male presented with past medical history of DM, CAD s/p CABG, afib on eliquis, ESRD on IHD Sun, Chronic systolic and diastolic heart failure (EF 45% grade 2 diastolic dysfunction, RVSP 49mmHg), Right KEMAR and Right TKA who presents with fall and left hip pain. [place] 5/325 1 tablet before transport to dialysis, before physical therapy, and for his weekly urinary catheterization on urinary catheterization because of recurrent UTIs to be done weekly on THURSDAYS patient to get hemodialysis today. Patient with hyperkalemia and will proceed with hemodialysis today. Hold off on medical therapy including D50, insulin, calcium gluconate and Lokelma ----Hemodialysis for 3.5 hours, 3 L ultrafiltration --2K to begin with and 1K bath in last 1 hour tube Hemoglobin 11.7 no need for BETTIE therapy Iron study with transferrin saturation 6.1, will add ferritin to a.m. labs Continue BETTIE as needed and vitamin therapy with dialysis same as outpatient hemodialysis center. Continue on Bumex 2 mg once daily Continue on Renvela 1 tablet 3 times with each meal Continue midodrine 5 mg 3 times a day Hypercalcemia: PTH 254. Last phosphorus 5.9 Will give Zometa 3 mg IV x 1 dose Hypercalcemia workup ordered-most likely for immobilization Principal Problem: Sacral fracture (HCC) Closed fracture of left superior pubic ramus ([facility]) Pain control Recently wheelchair bound at home per Ortho with conservative management Pre-CERT expires Sunday Chronic combined systolic and diastolic CHF (congestive heart failure) ([facility]) History of coronary artery bypass graft Chronic atrial fibrillation ([facility]) on Eliquis Continue midodrine, bumex, atorvastatin Next dialysis Recent urinary retention with butler that was removed out-patient Monitor urine output Yest residual <50ml Straight cath weekly 1 [place] ESRD (end stage renal disease) on dialysis ([facility]) Hyperkalemia T Sun schedule Type 2 diabetes mellitus without complication, with long-term current use of insulin ([facility]) Lantus 10 units on admission BS on lower side will decrease lantus to 6 units Monitor sugars Goal for glucose 100-180-at goal Patient Active Hospital Problem List: Sacral fracture (HCC) Date Noted: 01/07/2025 Closed fracture of left superior pubic ramus ([facility]) Date Noted: 01/07/2025 ESRD (end stage renal disease) on dialysis ([facility]) Date Noted: 06/05/2022 Chronic combined systolic and diastolic CHF (congestive heart failure) ([facility]) Date Noted: 03/24/2019 History of coronary artery bypass graft Date Noted: 04/18/2019 Chronic atrial fibrillation ([facility]) Date Noted: 01/07/2025 Type 2 diabetes mellitus without complication, with long-term current use of insulin ([facility]) Date Noted: 03/21/2016 History of recurrent UTIs Date Noted: 01/15/2025 HISTORY HOSPITAL COURSE: Mauri Quinones is a 69 year old male presented with past medical history of DM, CAD s/p CABG, afib on eliquis, ESRD on IHD T TH Sat, Chronic systolic and diastolic heart failure (EF 45% grade 2 diastolic dysfunction, RVSP 49mmHg), Right KEMAR and Right TKA who presents with fall and left hip pain. Fracture treated conservatively and he will go to correction facility for rehab. Dr. Loredo consulted for dialysis. Active Hospital Problems as of 01/15/2025 Noted - Resolved [facility] * (Principal) Sacral fracture ([facility]) 01/07/2025 - Present Yes Closed fracture of left superior pubic ramus ([facility]) 01/07/2025 - Present Yes ESRD (end stage renal disease) on dialysis ([facility] [facility] 06/05/[facility]22 - Present Yes Overview Sees Dr. Jackson. Chronic combined systolic and diastolic CHF (congestive heart failure) ([facility]) 03/24/2019 - Present Yes History of coronary artery bypass graft 04/18/2019 - Present Yes Overview 04/10/17 CARTY to LAD, SVG to PDA, SVG to OM Chronic atrial fibrillation ([facility]) 01/07/2025 - Present Yes Type 2 diabetes mellitus without complication, with long-term current use of insulin ([facility]) (more content not included)... [facility] 01-14-2025 Note HNO ID: [id number] Author: EVARISTO DAS MD Service: Hospital Medicine Author Type: Physician Type: Progress Notes Filed: 01/14/2025 18:26 Note Text: DEPARTMENT OF HOSPITAL MEDICINE PROGRESS NOTE SERVICE DATE: 01/14/2025 SERVICE TIME: 6:23 PM Hospital Medicine/Primary Attending: Evaristo Das MD NIGHT AND WEEKEND COVERAGE: [employer]: Nights: [phone], please page [facility] pager [phone]. Probable discharge: 01/12 Disposition: nursing home facility Consultants: Dr. Saucedo for orthopedics Dr. Loredo for nephrology PROCEDURES: NONE CODE STATUS: Full code ACCEPTS BLOOD PRODUCTS: YES : ASSESSMENT/PLAN Reason for Admission: Left superior ramus pelvic fracture fracture Anticoagulation: Prior to admission: Apixaban Current: Apixaban Smoking history: Never Diagnostic tests reviewed for today's visit: Most recent labs Most recent imaging Most recent EKG INTERVAL EVENTS: Mauri Quinones is a 69 year old male presented with past medical history of DM, CAD s/p CABG, afib on eliquis, ESRD on IHD T Sun, Chronic systolic and diastolic heart failure (EF 45% grade 2 diastolic dysfunction, RVSP 49mmHg), Right KEMAR and Right TKA who presents with fall and left hip pain. Patient has been stabilized I am stopping all insulin on him he is fluctuated so much I think he is having Somogyi effect Very somnolent cutting all hydrocodone to 1 tablet instead of 2 stopping Flexeril and Atarax and Valium Hopefully he will be more awake tomorrow and his electrolytes look good after dialysis for discharge on Sunday Principal Problem: Sacral fracture (HCC) Closed fracture of left superior pubic ramus ([facility]) Pain control Recently wheelchair bound at home per Ortho with conservative management Pre-CERT expires Sunday Chronic combined systolic and diastolic CHF (congestive heart failure) ([facility]) History of coronary artery bypass graft Chronic atrial fibrillation ([facility]) on Eliquis Continue midodrine, bumex, atorvastatin Next dialysis Recent urinary retention with butler that was removed out-patient Monitor urine output Yest residual <50ml Straight cath weekly ESRD (end stage renal disease) on dialysis ([facility]) Hyperkalemia Sun schedule Type 2 diabetes mellitus without complication, with long-term current use of insulin ([facility]) Lantus 10 units on admission BS on lower side will decrease lantus to 6 units Monitor sugars Goal for glucose 100-180-at goal Patient Active Hospital Problem List: Left hip pain Date Noted: 01/07/2025 Type 2 diabetes mellitus without complication, with long-term current use of insulin ([facility]) Date Noted: 03/21/2016 Chronic combined systolic and diastolic CHF (congestive heart failure) ([facility]) Date Noted: 03/24/2019 History of coronary artery bypass graft Date Noted: 04/18/2019 ESRD (end stage renal disease) on dialysis ([facility]) Date Noted: 06/05/2022 Sacral fracture ([facility]) Date Noted: 01/07/2025 Closed fracture of left superior pubic ramus ([facility]) Date Noted: 01/07/2025 Chronic atrial fibrillation ([facility]) Date Noted: 01/07/2025 Encephalopathy acute Date Noted: 01/08/2025 CO2 retention Date Noted: 01/08/2025 Hypoglycemia Date Noted: 01/13/2025 HISTORY HOSPITAL COURSE: Mauri Quinones is a 69 year old male presented with past medical history of DM, CAD s/p CABG, afib on eliquis, ESRD on IHD T TH Sat, Chronic systolic and diastolic heart failure (EF 45% grade 2 diastolic dysfunction, RVSP 49mmHg), Right KEMAR and Right TKA who presents with fall and left hip pain. Fracture treated conservatively and he will go to correction facility for rehab. Dr. Loredo consulted for dialysis. Active Hospital Problems as of 01/14/2025 Noted - Resolved [facility] * (Principal) Left hip pain 01/07/2025 - Present Yes Type 2 diabetes mellitus without complication, with long-term current use of insulin ([facility]) 03/21/2016 - Present Yes Overview 09/04/17 glucose 233, BUN 25, creatinine 1.04, normal lytes Chronic combined systolic and diastolic CHF (congestive heart failure) ([facility]) 03/24/2019 - Present Yes History of coronary artery bypass graft 04/18/2019 - Present Yes Overview 04/10/17 CARTY to LAD, SVG to PDA, SVG to OM ESRD (end stage renal disease) on dialysis ([facility]) 06/05/2022 - Present Yes Overview Sees Dr. Jackson. Sacral fracture ([facility]) 01/07/2025 - Present Yes Closed fracture of left superior pubic ramus ([facility]) 01/07/2025 - Present Yes Chronic atrial fibrillation ([facility]) 01/07/2025 - Present Yes Encephalopathy acute 01/08/2025 - Present Yes CO2 retention 01/08/2025 - Present Yes Hypoglycemia 01/13/2025 - Present Unknown EXAM PHYSICAL EXAM: BP 117/60 Pulse 80 Temp (Src) 98 (Axillary) Resp 22 Wt 165 lb (74.8kg) SpO2 100% O2 Therapy: Nasal Cannula, Liters (Numeric Only): 1 Physical Exam Performed GENERAL: Alert, no distress, cooperative NECK: No jugulovenous distention, Supple LUNGS: (more content not included)... [facility] 01-14-2025 Note HNO ID: [id number] Author: KAILYN CERDA RN Service: Care Management Author Type: Registered Nurse Type: Care Mgt Progress Note Filed: 01/14/2025 13:45 Note Text: CARE MANAGEMENT PROGRESS NOTE SERVICE DATE: 01/14/2025 SERVICE TIME: 1:41 PM LOS: 1 day Needs Prior to Discharge: To Be Determined EMR reviewed. Precert approved for [facility] through 01/19/25. [facility] [phone] updated that patient selected SNF in [place] and will continue HD in their center upon discharge. CM will follow. SIGNATURE: Kailyn Cerda RN PATIENT NAME: Mauri Quinones DATE: January 14, 2025 TIME: 1:41 PM [facility] 01-13-2025 Note HNO ID: [id number] Author: EVARISTO DAS MD Service: Hospital Medicine Author Type: Physician Type: Progress Notes Filed: 01/13/2025 21:04 Note Text: DEPARTMENT OF HOSPITAL MEDICINE PROGRESS NOTE SERVICE DATE: 01/13/2025 SERVICE TIME: 8:35 AM Hospital Medicine/Primary Attending: Evaristo Das MD NIGHT AND WEEKEND COVERAGE: [employer]: Nights: [phone], please page [facility] Night coverage pager [phone]. Probable discharge: 01/12 Disposition: nursing home facility Consultants: Dr. Saucedo for orthopedics Dr. Loredo for nephrology PROCEDURES: NONE CODE STATUS: Full code ACCEPTS BLOOD PRODUCTS: YES : ASSESSMENT/PLAN Reason for Admission: Left superior ramus pelvic fracture fracture Anticoagulation: Prior to admission: Apixaban Current: Apixaban Smoking history: Never Diagnostic tests reviewed for today's visit: Most recent labs Most recent imaging Most recent EKG INTERVAL EVENTS: Mauri Quinones is a 69 year old male presented with past medical history of DM, CAD s/p CABG, afib on eliquis, ESRD on IHD T TH Sat, Chronic systolic and diastolic heart failure (EF 45% grade 2 diastolic dysfunction, RVSP 49mmHg), Right KEMAR and Right TKA who presents with fall and left hip pain. Patient rapid response this morning with sustained hypoglycemia along with questionable EKG changes as no EKG has been done on him thus far in the admission and he has a new right bundle branch block. Following enzymes CT of the chest obtained he had dialysis and hyperkalemia was treated. It appeared he had a mucous plug as when I first saw him he had a 3 cm tracheal tug he coughed some he still had an RV heave but his tracheal tug was gone and his oxygenation went up and his heart rate went down. He has been in atrial fibrillation since arrival and we will reassess tomorrow as we had intended discharge today. Principal Problem: Sacral fracture (HCC) Closed fracture of left superior pubic ramus ([facility]) Pain control Recently wheelchair bound at home per Ortho with conservative management Need precert Chronic combined systolic and diastolic CHF (congestive heart failure) ([facility]) History of coronary artery bypass graft Chronic atrial fibrillation ([facility]) on Eliquis Continue midodrine, bumex, atorvastatin Next dialysis Sunday Recent urinary retention with butler that was removed out-patient Monitor urine output Yest residual <50ml Straight cath weekly ESRD (end stage renal disease) on dialysis ([facility]) Hyperkalemia T Sun schedule Type 2 diabetes mellitus without complication, with long-term current use of insulin ([facility]) Lantus 10 units on admission BS on lower side will decrease lantus to 6 units Monitor sugars Goal for glucose 100-180-at goal Patient Active Hospital Problem List: Left hip pain Date Noted: 01/07/2025 Type 2 diabetes mellitus without complication, with long-term current use of insulin ([facility]) Date Noted: 03/21/2016 Chronic combined systolic and diastolic CHF (congestive heart failure) ([facility]) Date Noted: 03/24/2019 History of coronary artery bypass graft Date Noted: 04/18/2019 ESRD (end stage renal disease) on dialysis ([facility]) Date Noted: 06/05/2022 Sacral fracture ([facility]) Date Noted: 01/07/2025 Closed fracture of left superior pubic ramus ([facility]) Date Noted: 01/07/2025 Chronic atrial fibrillation ([facility]) Date Noted: 01/07/2025 Encephalopathy acute Date Noted: 01/08/2025 CO2 retention Date Noted: 01/08/2025 HISTORY HOSPITAL COURSE: Mauri Quinones is a 69 year old male presented with past medical history of DM, CAD s/p CABG, afib on eliquis, ESRD on IHD T Sun, Chronic systolic and diastolic heart failure (EF 45% grade 2 diastolic dysfunction, RVSP 49mmHg), Right KEMAR and Right TKA who presents with fall and left hip pain. Fracture treated conservatively and he will go to correction facility for rehab. Dr. Loredo consulted for dialysis. Active Hospital Problems as of 01/13/2025 Noted - Resolved [facility] * (Principal) Left hip pain 01/07/2025 - Present Yes Type 2 diabetes mellitus without complication, with long-term current use of insulin ([facility]) 03/21/2016 - Present Yes Overview 09/04/17 glucose 233, BUN 25, creatinine 1.04, normal lytes Chronic combined systolic and diastolic CHF (congestive heart failure) ([facility]) 03/24/2019 - Present Yes History of coronary artery bypass graft 04/18/2019 - Present Yes Overview 04/10/17 CARTY to LAD, SVG to PDA, SVG to OM ESRD (end stage renal disease) on dialysis ([facility]) 06/05/2022 - Present Yes Overview Sees Dr. Jackson. Sacral fracture ([facility]) 01/07/2025 - Present Yes Closed fracture of left superior pubic ramus ([facility]) 01/07/2025 - Present Yes Chronic atrial fibrillation ([facility]) 01/07/2025 - Present Yes Encephalopathy acute 01/08/2025 - Present Yes CO2 retention 01/08/2025 - Present Yes EXAM PHYSICAL EXAM: BP 105/54 Pulse 116 Temp (Src) 98 (Axillary) Resp 18 Wt 165 lb (74.8k (more content not included)... [facility] 01-12-2025 Note HNO ID: [id number] Author: EVARISTO DAS MD Service: Hospital Medicine Author Type: Physician Type: Progress Notes Filed: 01/12/2025 17:41 Note Text: DEPARTMENT OF HOSPITAL MEDICINE PROGRESS NOTE SERVICE DATE: 01/12/2025 SERVICE TIME: 5:36 PM Hospital Medicine/Primary Attending: Evaristo Das MD NIGHT AND WEEKEND COVERAGE: [employer]: Nights: [phone], please page [facility] Night [facility] pager [phone]. Probable discharge: 01/12 Disposition: nursing home facility Consultants: Dr. Saucedo for orthopedics Dr. Loredo for nephrology PROCEDURES: NONE CODE STATUS: Full code ACCEPTS BLOOD PRODUCTS: YES : ASSESSMENT/PLAN Reason for Admission: Left superior ramus pelvic fracture fracture Anticoagulation: Prior to admission: Apixaban Current: Apixaban Smoking history: Never Diagnostic tests reviewed for today's visit: Most recent labs Most recent imaging Most recent EKG INTERVAL EVENTS: Mauri Quinones is a 69 year old male presented with past medical history of DM, CAD s/p CABG, afib on eliquis, ESRD on IHD Sun, Chronic systolic and diastolic heart failure (EF 45% grade 2 diastolic dysfunction, RVSP 49mmHg), Right KEMAR and Right TKA who presents with fall and left hip pain. Will get repeat dialysis Sunday MRI -refused Will be okay for long-term placement for rehab choices made awaiting precertification For urologist straight cath once weekly because he makes little urine but does not void well Principal Problem: Sacral fracture (HCC) Closed fracture of left superior pubic ramus ([facility]) Pain control Recently wheelchair bound at home per Ortho with conservative management Need precert Chronic combined systolic and diastolic CHF (congestive heart failure) ([facility]) History of coronary artery bypass graft Chronic atrial fibrillation ([facility]) on Eliquis Continue midodrine, bumex, atorvastatin Next dialysis Sunday Recent urinary retention with butler that was removed out-patient Monitor urine output Yest residual <50ml Straight cath weekly ESRD (end stage renal disease) on dialysis ([facility]) Hyperkalemia T Sun schedule Type 2 diabetes mellitus without complication, with long-term current use of insulin ([facility]) Lantus 10 units on admission BS on lower side will decrease lantus to 6 units Monitor sugars Goal for glucose 100-180-at goal Patient Active Hospital Problem List: Left hip pain Date Noted: 01/07/2025 Type 2 diabetes mellitus without complication, with long-term current use of insulin ([facility]) Date Noted: 03/21/2016 Chronic combined systolic and diastolic CHF (congestive heart failure) ([facility]) Date Noted: 03/24/2019 History of coronary artery bypass graft Date Noted: 04/18/2019 ESRD (end stage renal disease) on dialysis ([facility]) Date Noted: 06/05/2022 Sacral fracture ([facility]) Date Noted: 01/07/2025 Closed fracture of left superior pubic ramus ([facility]) Date Noted: 01/07/2025 Chronic atrial fibrillation ([facility]) Date Noted: 01/07/2025 Encephalopathy acute Date Noted: 01/08/2025 CO2 retention Date Noted: 01/08/2025 HISTORY HOSPITAL COURSE: Mauri Quinones is a 69 year old male presented with past medical history of DM, CAD s/p CABG, afib on eliquis, ESRD on IHD T TH Sat, Chronic systolic and diastolic heart failure (EF 45% grade 2 diastolic dysfunction, RVSP 49mmHg), Right KEMAR and Right TKA who presents with fall and left hip pain. Fracture treated conservatively and he will go to correction facility for rehab. Dr. Loredo consulted for dialysis. Active Hospital Problems as of 01/12/2025 Noted - Resolved [facility] * (Principal) Left hip pain 01/07/2025 - Present Yes Type 2 diabetes mellitus without complication, with long-term current use of insulin ([facility]) 03/21/2016 - Present Yes Overview 09/04/17 glucose 233, BUN 25, creatinine 1.04, normal lytes Chronic combined systolic and diastolic CHF (congestive heart failure) ([facility]) 03/24/2019 - Present Yes History of coronary artery bypass graft 04/18/2019 - Present Yes Overview 04/10/17 CARTY to LAD, SVG to PDA, SVG to OM ESRD (end stage renal disease) on dialysis ([facility]) 06/05/2022 - Present Yes Overview Sees Dr. Jackson. Sacral fracture ([facility]) 01/07/2025 - Present Yes Closed fracture of left superior pubic ramus ([facility]) 01/07/2025 - Present Yes Chronic atrial fibrillation ([facility]) 01/07/2025 - Present Yes Encephalopathy acute 01/08/2025 - Present Yes CO2 retention 01/08/2025 - Present Yes EXAM PHYSICAL EXAM: BP 119/63 Pulse 82 Temp (Src) 97.5 (Oral) Resp 18 Wt 165 lb (74.8kg) SpO2 92% O2 Therapy: Room Air Physical Exam Performed GENERAL: Alert, no distress, cooperative NECK: No jugulovenous distention, Supple LUNGS: Adventitious sounds: Clear to auscultation Respiratory Distress - no CARDIAC: Regular rate and rhythm: ABDOMEN: Abdomen soft, non-tender, no peritoneal signs EXTREMITIES: No edema, no cords NEURO: Grossly at baseline cognitio (more content not included)... [facility] 01-12-2025 Note HNO ID: [id number] Author: IVETT BENITEZ, RN Service: Care Management Author Type: Registered Nurse Type: Care Mgt Progress Note Filed: 01/12/2025 16:11 Note Text: CARE MANAGEMENT PROGRESS NOTE SERVICE DATE: 01/12/2025 SERVICE TIME: 1:22 PM LOS: 0 days Needs Prior to Discharge: To Be Determined, Accepting Facility, Bed Availability, Precertification EMR reviewed. Patient/ changed FOC to [facility]. Awaiting if they can accept. Precert approved for [facility], Onsite HD also approved. PT/OT rec SNF. L Hip pain, sacral fracture, closed fx left superior pubic ramus. Non-surgical. Mentation improved. On RA 4:07 PM Multiple messages sent to [facility] to inquire if they can accept, answered all of their questions asked. They now advised they can accept. Referral to [place] updated that facility of choice has changed. Precert has been obtained for [facility], Tasked [facility] and sent secure chat message to switch the precert to [facility]. PASS updated and facility changed to [facility]. Met with patient and at bedside to update. SIGNATURE: Ivett Benitez RN PATIENT NAME: Mauri Quinones DATE: January 12, 2025 TIME: 1:22 PM [facility] 01-11-2025 Note HNO ID: [id number] Author: EVARISTO DAS MD Service: Hospital Medicine Author Type: Physician Type: Progress Notes Filed: 01/11/2025 18:03 Note Text: DEPARTMENT OF HOSPITAL MEDICINE PROGRESS NOTE SERVICE DATE: 01/11/2025 SERVICE TIME: 4:54 PM Hospital Medicine/Primary Attending: Evaristo Das MD NIGHT AND WEEKEND COVERAGE: [employer]: Nights: [phone], please page [facility] Night coverage pager [phone]. Probable discharge: 01/12 Disposition: nursing home facility Consultants: Dr. Saucedo for orthopedics Dr. Loredo for nephrology PROCEDURES: NONE CODE STATUS: Full code ACCEPTS BLOOD PRODUCTS: YES : ASSESSMENT/PLAN Reason for Admission: Left superior ramus pelvic fracture fracture Anticoagulation: Prior to admission: Apixaban Current: Apixaban Smoking history: Never Diagnostic tests reviewed for today's visit: Most recent labs Most recent imaging Most recent EKG INTERVAL EVENTS: Mauri Quinones is a 69 year old male presented with past medical history of DM, CAD s/p CABG, afib on eliquis, ESRD on IHD T TH Sat, Chronic systolic and diastolic heart failure (EF 45% grade 2 diastolic dysfunction, RVSP 49mmHg), Right KEMAR and Right TKA who presents with fall and left hip pain. Will get repeat dialysis Sunday MRI -refused Will be okay for long-term placement for rehab choices made awaiting precertification Principal Problem: Left hip pain Sacral fracture (HCC) Closed fracture of left superior pubic ramus ([facility]) Orthopedics consult Pain control Recently wheelchair bound at home per Ortho with conservative management PT/OT rec SNF May need precert Altered mental status/encephalopathy Respiratory acidosis (?acute on chronic) has mild metabolic alkalosis Likely due to pain meds and underlying pulm congestion Hold all sedatives/hypnotics CT head with no acute findings Mentation has significantly improved, confusion seems improved Oriented times 3 and more awake although at times diff to understand(?no teeth) and he is hard of hearing as well Chronic combined systolic and diastolic CHF (congestive heart failure) ([facility]) History of coronary artery bypass graft Chronic atrial fibrillation ([facility]) on Eliquis Continue midodrine, bumex, atorvastatin Next dialysis Sunday Recent urinary retention with butler that was removed out-patient Monitor urine output Yest residual <50ml ESRD (end stage renal disease) on dialysis ([facility]) Hyperkalemia T Sun schedule with last IHD on 01/06 Dialysis yesterday Type 2 diabetes mellitus without complication, with long-term current use of insulin ([facility]) Lantus 10 units on admission BS on lower side will decrease lantus to 6 units Monitor sugars Goal for glucose 100-180-at goal Patient Active Hospital Problem List: Left hip pain Date Noted: 01/07/2025 Type 2 diabetes mellitus without complication, with long-term current use of insulin ([facility]) Date Noted: 03/21/2016 Chronic combined systolic and diastolic CHF (congestive heart failure) ([facility]) Date Noted: 03/24/2019 History of coronary artery bypass graft Date Noted: 04/18/2019 ESRD (end stage renal disease) on dialysis ([facility]) Date Noted: 06/05/2022 Sacral fracture ([facility]) Date Noted: 01/07/2025 Closed fracture of left superior pubic ramus ([facility]) Date Noted: 01/07/2025 Chronic atrial fibrillation ([facility]) Date Noted: 01/07/2025 Encephalopathy acute Date Noted: 01/08/2025 CO2 retention Date Noted: 01/08/2025 HISTORY HOSPITAL COURSE: Mauri Quinones is a 69 year old male presented with past medical history of DM, CAD s/p CABG, afib on eliquis, ESRD on IHD T TH Sat, Chronic systolic and diastolic heart failure (EF 45% grade 2 diastolic dysfunction, RVSP 49mmHg), Right KEMAR and Right TKA who presents with fall and left hip pain. Fracture treated conservatively and he will go to correction facility for rehab. Dr. Loredo consulted for dialysis. Active Hospital Problems as of 01/11/2025 Noted - Resolved [facility] * (Principal) Left hip pain 01/07/2025 - Present Yes Type 2 diabetes mellitus without complication, with long-term current use of insulin ([facility]) 03/21/2016 - Present Yes Overview 09/04/17 glucose 233, BUN 25, creatinine 1.04, normal lytes Chronic combined systolic and diastolic CHF (congestive heart failure) ([facility]) 03/24/2019 - Present Yes History of coronary artery bypass graft 04/18/2019 - Present Yes Overview 04/10/17 CARTY to LAD, SVG to PDA, SVG to OM ESRD (end stage renal disease) on dialysis ([facility]) 06/05/2022 - Present Yes Overview Sees Dr. Jackson. Sacral fracture ([facility]) 01/07/2025 - Present Yes Closed fracture of left superior pubic ramus ([facility]) 01/07/2025 - Present Yes Chronic atrial fibrillation ([facility]) 01/07/2025 - Present Yes Encephalopathy acute 01/08/2025 - Present Yes CO2 retention 01/08/2025 - Present Yes EXAM PHYSICAL EXAM: BP 124/58 Pulse 87 Temp (Src) 98 (Oral) Resp 18 Wt 165 lb (74.8kg) (more content not included)... [facility] 01-11-2025 Note HNO ID: [id number] Author: MANUELA GUERRIER LSW Service: Care Management Author Type: Decorating Supervisor Type: Care Mgt Progress Note Filed: 01/11/2025 08:26 Note Text: CARE MANAGEMENT PROGRESS NOTE SERVICE DATE: 01/11/2025 SERVICE TIME: 8:25 AM LOS: 0 days CM left LW/POA paperwork at pt's bedside and assisted pt with contacting his , who is also aware the paperwork is with pt. CM will continue to follow with d/c planning. SIGNATURE: JORGE Barbosa ACM PATIENT NAME: Mauri Quinones DATE: January 11, 2025 TIME: 8:25 AM [facility] 01-11-2025 Note HNO ID: [id number] Author: NOTE, INTERFACE, ? Service: ? Author Type: ? Type: Progress Notes Filed: 01/11/2025 02:53 Note Text: Epic Scheduled Downtime: 01/11/2025 1:00:00 AM to 01/11/2025 2:37:00 AM [facility] 01-10-2025 Note HNO ID: [id number] Author: MANUELA GUERRIER LSW Service: Care Management Author Type: Decorating Supervisor Type: Care Mgt Progress Note Filed: 01/10/2025 14:35 Note Text: CARE MANAGEMENT PROGRESS NOTE SERVICE DATE: 01/10/2025 SERVICE TIME: 2:34 PM LOS: 0 days CM received call , from unit [facility], to f/u with pt's family. CM spoke with pt's spouse who is aware precert is still pending at [facility] and she requested that [facility] also be sent clinicals for review. Information sent to [facility], via [employer]. CM will continue to follow with d/c planning. SIGNATURE: JORGE Barbosa ACM PATIENT NAME: Mauri Quinones DATE: January 10, 2025 TIME: 2:33 PM [facility] 01-10-2025 Note HNO ID: [id number] Author: EVARISTO DAS MD Service: Hospital Medicine Author Type: Physician Type: Progress Notes Filed: 01/10/2025 15:03 Note Text: DEPARTMENT OF HOSPITAL MEDICINE PROGRESS NOTE SERVICE DATE: 01/10/2025 SERVICE TIME: 2:30 PM Hospital Medicine/Primary Attending: Evaristo Das MD NIGHT AND WEEKEND COVERAGE: [employer]: Nights: [phone], please page [facility] [phone]. Probable discharge: 01/12 Disposition: nursing home facility Consultants: Dr. Saucedo for orthopedics Dr. Loredo for nephrology PROCEDURES: NONE CODE STATUS: Full code ACCEPTS BLOOD PRODUCTS: YES : ASSESSMENT/PLAN Reason for Admission: Left superior ramus pelvic fracture fracture Anticoagulation: Prior to admission: Apixaban Current: Apixaban Smoking history: Never Diagnostic tests reviewed for today's visit: Most recent labs Most recent imaging Most recent EKG INTERVAL EVENTS: Mauri Quinones is a 69 year old male presented with past medical history of DM, CAD s/p CABG, afib on eliquis, ESRD on IHD T TH Sat, Chronic systolic and diastolic heart failure (EF 45% grade 2 diastolic dysfunction, RVSP 49mmHg), Right KEMAR and Right TKA who presents with fall and left hip pain. Patient seen in dialysis and exam is stable. He is in atrial fibrillation with cardiac murmur while on dialysis. He has stable otherwise with his blood pressure being better after midodrine. He is agreeable to having MRI after discussion. Principal Problem: Left hip pain Sacral fracture (HCC) Closed fracture of left superior pubic ramus (HCC) Orthopedics consult Pain control Recently wheelchair bound at home per Ortho with conservative management PT/OT rec SNF May need precert Altered mental status/encephalopathy Respiratory acidosis (?acute on chronic) has mild metabolic alkalosis Likely due to pain meds and underlying pulm congestion Hold all sedatives/hypnotics CT head with no acute findings Mentation has significantly improved, confusion seems improved Oriented times 3 and more awake although at times diff to understand(?no teeth) and he is hard of hearing as well Holding off on repeating ABG since mentation has improved significantly If restarting narcotics only low dose and consider ESRD Check MRI Brain-I spoke to patient in dialysis and he has agreed to the MRI repeat ABG-patient chronic CO2 retention with baseline CO2 around 49 by my calculation the rest of that is acute and base excess is 3 consistent with cyclic retention acutely 06 Consider neuro eval if necessary UA, Urine culture with straight cath Chronic combined systolic and diastolic CHF (congestive heart failure) ([facility]) History of coronary artery bypass graft Chronic atrial fibrillation (HCC) on Eliquis Continue midodrine, bumex, atorvastatin Restart eliquis Recent urinary retention with butler that was removed out-patient Monitor urine output Yest residual <50ml ESRD (end stage renal disease) on dialysis ([facility]) Hyperkalemia T Th Sat schedule with last IHD on 01/06 Nephrology consulted Dialysis yesterday Type 2 diabetes mellitus without complication, with long-term current use of insulin ([facility]) Lantus 10 units on admission BS on lower side will decrease lantus to 6 units Monitor sugars Patient Active Hospital Problem List: Left hip pain Date Noted: 01/07/2025 Type 2 diabetes mellitus without complication, with long-term current use of insulin ([facility]) Date Noted: 03/21/2016 Chronic combined systolic and diastolic CHF (congestive heart failure) ([facility]) Date Noted: 03/24/2019 History of coronary artery bypass graft Date Noted: 04/18/2019 ESRD (end stage renal disease) on dialysis ([facility]) Date Noted: 06/05/2022 Sacral fracture ([facility]) Date Noted: 01/07/2025 Closed fracture of left superior pubic ramus ([facility]) Date Noted: 01/07/2025 Chronic atrial fibrillation ([facility]) Date Noted: 01/07/2025 Encephalopathy acute Date Noted: 01/08/2025 CO2 retention Date Noted: 01/08/2025 HISTORY HOSPITAL COURSE: Mauri Quinones is a 69 year old male presented with past medical history of DM, CAD s/p CABG, afib on eliquis, ESRD on IHD T Sat, Chronic systolic and diastolic heart failure (EF 45% grade 2 diastolic dysfunction, RVSP 49mmHg), Right KEMAR and Right TKA who presents with fall and left hip pain. Fracture treated conservatively and [facility] for [facility]. Dr. Loredo consulted for dialysis. Active Hospital Problems as of 01/10/2025 Noted - Resolved [facility] * (Principal) Left hip pain 01/07/2025 - Present Yes Type 2 diabetes mellitus without complication, with long-term current use of insulin ([facility]) 03/21/2016 - Present Yes Overview 09/04/17 glucose 233, BUN 25, creatinine 1.04, normal lytes Chronic combined systolic and diastolic CHF (congestive heart failure) ([facility]) 03/24/2019 - Present Yes History of coronary artery bypass graft more content not included)... [facility] 01-10-2025 Note HNO ID: [id number] Author: ABILIO CARRIZALES, RN Service: ? Author Type: Registered Nurse Type: Progress Notes Filed: 01/10/2025 12:53 Note Text: Hemodialysis completed 3.5 hours. Patient tolerated well, BP stable throughout. Fluid removed was 2500 ml. Next HD [facility] 5/20/25. Report given post dialysis to Rikki Washington RN [facility] 01-10-2025 Note HNO ID: [id number] Author: NOTE, INTERFACE, ? Service: ? Author Type: ? Type: Progress Notes Filed: 01/10/2025 03:45 Note Text: Epic Scheduled Downtime: 01/10/2025 1:00:00 AM to 01/10/2025 3:39:00 AM [facility] 01-09-2025 Note HNO ID: [id number] Author: IVETT BENITEZ RN Service: Care Management Author Type: Registered Nurse Type: Care Mgt Progress Note Filed: 01/09/2025 16:11 Note Text: CARE MANAGEMENT PROGRESS NOTE SERVICE DATE: 01/09/2025 SERVICE TIME: 2:46 PM LOS: 0 days Needs Prior to Discharge: To Be Determined, Accepting Facility, Bed Availability, Precertification [place] of Choice Given: Yes Level of Care Discussed: [facility] Financial Disclosure Provided: Yes Provider List: [facility] Facility Provider list within the patient's requested geographic area shared with the patient/family: Yes within: 15 miles of zip code: [address] Quality and resource use metrics shared with the patient that are relevant to the patient's goals of care and treatment preferences:: Yes Metrics: Functional Status, Discharge to Community, Potentially Preventable 30-day Post Discharge Readmission Rates PT/OT rec SNF. Met with patient and at bedside. provided [facility] and [facility] as choices. SNF list provided for her to review for further choices in case neither facility can accept. 4:[facility] as they [facility]. They have started auth for SNF and onsite HD. Will need auth for both back prior to admission. [facility]. PASRR completed. SIGNATURE: Ivett Benitez RN PATIENT NAME: Mauri Quinones DATE: January 09, 2025 TIME: 2:45 PM [facility] 01-09-2025 Note HNO ID: [id number] Author: LUIS MADERA MD Service: Hospital Medicine Author Type: Physician Type: Progress Notes Filed: 01/09/2025 16:09 Note Text: DEPARTMENT OF HOSPITAL MEDICINE Progress note SERVICE DATE: 01/09/2025 SERVICE TIME: 2:19 PM Primary Care Physician: Rigoberto Gould MD NIGHT AND WEEKEND COVERAGE: [employer]: Days: [phone], please page attending physician. Nights: [phone], please page [place] [facility] Night coverage pager [phone]. Subjective Seen working with therapy. Heavy assist. Denies any CP, SHORTNESS OF BREATH. Seems more awake. Pain with movement of left lower extremity and hip Objective PHYSICAL EXAM: BP 123/58 Pulse 79 Temp (Src) 97.8 (Oral) Resp 16 Wt 165 lb 2 oz (74.9kg) SpO2 100% O2 Therapy: Nasal Cannula, Liters (Numeric Only): 2 Physical Exam Performed: GENERAL:Awake, follows commands, alert neck supple, moves all extremities. LLE movement with pain in pelvic area. Left arm AV fistula SKIN: Skin color, texture, turgor normal. No rashes or lesions. HEAD/SINUSES: No significant findings EYES: PERRL, EOMI LUNGS: Lungs clear to auscultation, Good diaphragmatic excursion CARDIAC: Normal S1 and S2; no rubs, murmurs, or gallops ABDOMEN: Abdomen soft, non-tender, BS normal, EXTREMITIES: Extremities normal, no deformities, edema, clubbing or skin discoloration. Lines, Drains, and Airways Line Duration Peripheral 01/07/25 1414 [facility] Right Antecubital 20 Gauge 2 days DATA: Diagnostic tests reviewed for today's visit: Most recent labs Most recent imaging Assessment/Plan Problem List Left hip pain (POA: Yes) Type 2 diabetes mellitus without complication, with long-term current use of insulin (HCC) (POA: Yes) Chronic combined systolic and diastolic CHF (congestive heart failure) (HCC) (POA: Yes) History of coronary artery bypass graft (POA: Yes) ESRD (end stage renal disease) on dialysis (HCC) (POA: Yes) Sacral fracture (HCC) (POA: Yes) Closed fracture of left superior pubic ramus (HCC) (POA: Yes) Chronic atrial fibrillation (HCC) (POA: Yes) Encephalopathy acute (POA: Status not on file) CO2 retention (POA: Status not on file) HOSPITAL COURSE: Mauri Quinones is a 69 year old male presented with past medical history of DM, CAD s/p CABG, afib on eliquis, ESRD on IHD T TH Sat, Chronic systolic and diastolic heart failure (EF 45% grade 2 diastolic dysfunction, RVSP 49mmHg), Right KEMAR and Right TKA who presents with fall and left hip pain. Principal Problem: Left hip pain Sacral fracture (HCC) Closed fracture of left superior pubic ramus ([facility]) Orthopedics consult Pain control Recently wheelchair bound at home per Ortho with conservative management PT/OT rec SNF May need precert Altered mental status/encephalopathy Respiratory acidosis (?acute on chronic) has mild metabolic alkalosis Likely due to pain meds and underlying pulm congestion Hold all sedatives/hypnotics CT head with no acute findings Mentation has significantly improved, confusion seems improved Oriented times 3 and more awake although at times diff to understand(?no teeth) and he is hard of hearing as well Holding off on repeating ABG since mentation has improved significantly If restarting narcotics only low dose and consider ESRD Check MRI Brain, repeat ABG Consider neuro eval if necessary UA, Urine culture with straight cath Chronic combined systolic and diastolic CHF (congestive heart failure) ([facility]) History of coronary artery bypass graft Chronic atrial fibrillation (HCC) on Eliquis Continue midodrine, bumex, atorvastatin Restart eliquis Recent urinary retention with butler that was removed out-patient Monitor urine output Yest residual <50ml ESRD (end stage renal disease) on dialysis ([facility]) Hyperkalemia T Th Sat schedule with last IHD on 01/06 Nephrology consulted Dialysis yesterday Type 2 diabetes mellitus without complication, with long-term current use of insulin ([facility]) Lantus 10 units on admission BS on lower side will decrease lantus to 6 units Monitor sugars Full code Medication Reconciliation: Completed Medication and Non-Pharmacologic VTE Prophylaxis/Anticoagulants VTE Prophylaxis: VTE prophylaxis appropriate Disposition: SNF Plan of care discussed with Provider, RN, Patient Plan communicated to: N/A Some elements copied from previous progress note dated 01/08/25 , the elements have been updated and all reflect current decision making from today, 01/09/25 [facility] 01-09-2025 Telephone encounter Note Tracie from [facility] calling patient was transferred to [facility] with fractured pelvis. Plan to discharge to SNF with dialysis when patient is ready. [facility] 01-09-2025 Miscellaneous Notes Tracie from [facility] calling patient was transferred to [facility] with fractured pelvis. Plan to discharge to SNF with dialysis when patient is ready. documented in this encounter [facility] 01-08-2025 Note HNO ID: [id number] Author: KENNA FRAGOSO RN Service: Dialysis Author Type: Registered Nurse Type: Progress Notes Filed: 01/08/2025 20:18 Note Text: 3hr HD tx complete via left upper AVF. Hemostasis achieved. +thrill/bruit. Total UF remove =1L. Report provided to primary RN. See scanned docs for tx data. [facility] 01-08-2025 Note HNO ID: [id number] Author: LUIS MADERA MD Service: Hospital Medicine Author Type: Physician Type: Progress Notes Filed: 01/08/2025 13:59 Note Text: DEPARTMENT OF HOSPITAL MEDICINE Progress note SERVICE DATE: 01/08/2025 SERVICE TIME: 1:50 PM Primary Care Physician: Rigoberto Gould MD NIGHT AND WEEKEND COVERAGE: [employer] COVER[employer]: Days: [phone], please page attending physician. Nights: [phone], please page [place] [facility] Night coverage pager [phone]. Subjective Patient sleepy per nurse, arousable. Denies nay issues. Recently has been wheelchair bound Objective PHYSICAL EXAM: BP 102/53 Pulse 87 Temp (Src) 97.7 (Axillary) Resp 18 SpO2 100% O2 Therapy: Nasal Cannula, Liters (Numeric Only): 1.00 Physical Exam Performed: GENERAL:Sleepy, arousable, follows simple commands, neck supple, moves all extremities. LLE movement with pain in pelvic area. Left arm AV fistula SKIN: Skin color, texture, turgor normal. No rashes or lesions. HEAD/SINUSES: No significant findings EYES: PERRL, EOMI LUNGS: Lungs clear to auscultation, Good diaphragmatic excursion CARDIAC: Normal S1 and S2; no rubs, murmurs, or gallops ABDOMEN: Abdomen soft, non-tender, BS normal, EXTREMITIES: Extremities normal, no deformities, edema, clubbing or skin discoloration. PULSES: 2+ radial, 2+ carotid Lines, Drains, and Airways Line Duration Peripheral 01/07/25 1414 [facility] Right Antecubital 20 Gauge <1 day DATA: Diagnostic tests reviewed for today's visit: Most recent labs Most recent imaging Assessment/Plan Problem List Left hip pain (POA: Yes) Type 2 diabetes mellitus without complication, with long-term current use of insulin (HCC) (POA: Yes) Chronic combined systolic and diastolic CHF (congestive heart failure) (HCC) (POA: Yes) History of coronary artery bypass graft (POA: Yes) ESRD (end stage renal disease) on dialysis (HCC) (POA: Yes) Sacral fracture (HCC) (POA: Yes) Closed fracture of left superior pubic ramus (HCC) (POA: Yes) Chronic atrial fibrillation (HCC) (POA: Yes) HOSPITAL COURSE: Mauri Quinones is a 69 year old male presented with past medical history of DM, CAD s/p CABG, afib on eliquis, ESRD on IHD T Sat, Chronic systolic and diastolic heart failure (EF 45% grade 2 diastolic dysfunction, RVSP 49mmHg), Right KEMAR and Right TKA who presents with fall and left hip pain. Principal Problem: Left hip pain Sacral fracture (HCC) Closed fracture of left superior pubic ramus (HCC) Orthopedics consult Pain control Non weight bearing until seen by ortho. Wheelchair bound with transfers at baseline PT/OT pending ortho consult Ortho with conservative management Altered mental status/encephalopathy Respiratory acidosis (?acute on chronic) has mild metabolic alkalosis Likely due to pain meds and underlying pulm congestion Hold all sedatives/hypnotics Repeat ABG in 2hrs and consider Narcan if necessary Needs dialysis today CT head with no acute findings Chronic combined systolic and diastolic CHF (congestive heart failure) (HCC) History of coronary artery bypass graft Chronic atrial fibrillation (HCC) on Eliquis Continue midodrine, bumex, atorvastatin Hold eliquis pending ortho eval Recent urinary retention with butler that was removed out-patient Monitor urine output Today residual <50ml ESRD (end stage renal disease) on dialysis (HCC) Hyperkalemia T Th Sat schedule with last IHD on 01/06 Nephrology consulted Dialysis planned for today Type 2 diabetes mellitus without complication, with long-term current use of insulin (HCC) Continue Lantus 10 units SSI Monitor sugars Full code Medication Reconciliation: Completed Medication and Non-Pharmacologic VTE Prophylaxis/Anticoagulants VTE Prophylaxis: VTE prophylaxis appropriate Disposition: To be determined Plan of care discussed with Provider, RN, Patient Plan communicated to: N/A Some elements copied from previous progress note dated 01/07/25 , the elements have been updated and all reflect current decision making from today, 01/08/25 [facility] 01-08-2025 Note HNO ID: [id number] Author: FLOYD RICHMOND RN Service: ? Author Type: Registered Nurse Type: Progress Notes Filed: 01/08/2025 11:14 Note Text: Transitional Care Management (TCM) Inpatient Outreach N/A - No specialty updates needed Summary: Patient admitted to: [facility] Patient admitted on: 01/07/2025 Admitted for: fractured pelvis Contact made with patient: No Mychart message sent Outreach ended. Floyd Richmond RN January 08, 2025 [facility] 01-08-2025 History of Presen t illness Narrative Transitional Care Management (TCM) Inpatient Outreach N/A - No specialty updates needed Summary: Patient admitted to: [facility] Patient admitted on: 01/07/2025 Admitted for: fractured pelvis Contact made with patient: No Mychart message sent Outreach ended. Floyd Richmond RN January 08, 2025 documented in this encounter [facility] 01-08-2025 Note Patient Outreach ([facility] MAURI QUINONES ([id number]) 1955 M T Date Time Provider Department 01/08/25 FLOYD RICHMOND [facility] During your visit today, we recorded the following information about you: Floyd Richmond RN 01/08/2025 11:14 AM Signed Transitional Care Management (TCM) Inpatient Outreach N/A - No specialty updates needed Summary: Patient admitted to: [facility] Patient admitted on: 01/07/2025 Admitted for: fractured pelvis Contact made with patient: No [employer] message sent Outreach ended. Floyd Richmond RN January 08, 2025 Allergies As of Date: 01/08/2025 Noted Allergy Reaction LYRICA (PREGABALIN) 03/23/2017 7 - Swelling Date Reviewed: 01/08/2025 Reviewed by: Sylvia Khan RN - Fully Assessed Reason for Visit: Transition Of Care [4074] Cmt: Reach in Prescriptions as of 01/08/2025 - traZODone (DESYREL) 100 mg tablet Take 1 tablet by mouth daily at bedtime. - ELIQUIS 5 mg tab(s) Take 1 tablet by mouth. - midodrine (PROAMITINE) 5 mg tablet Take 5 mg by mouth three times a day. - ammonium lactate (LAC-HYDRIN) 12 % cream Apply to affected area as needed. - LANTUS SOLOSTAR U-100 INSULIN 100 unit/mL (3 mL) Inject 10 Units subcutaneously daily at bedtime. - hydrOXYzine HCl (ATARAX) 25 mg tablet Take 1 tablet by mouth every 6 hours as needed for itching/rash. - Tadalafil (CIALIS) 20 mg tablet Take 1 tablet by mouth once daily as needed. Do not take at same time as doxazosin - pantoprazole DR (PROTONIX) 40 mg tablet Take 1 tablet by mouth every morning. - Insulin [place], Disposable, (BD ULTRA-FINE GOLDY PEN NEEDLE) 32 gauge x Use one needle for each dose. once/day. - atorvastatin (LIPITOR) 40 mg tablet Take 1 tablet by mouth daily at bedtime. - bumetanide (BUMEX) 2 mg tablet Take 1 tablet by mouth every morning. - loratadine (CLARITIN) 10 mg tablet Take 1 tablet by mouth once daily. - sevelamer carbonate (RENVELA) 800 mg tablet Take 800 mg by mouth three times daily with meals. - B Complex-Vitamin C-Folic Acid (NEPHRO-SAVANAH) 0.8 mg tab Take 1 tablet by mouth every morning. - melatonin 5 mg tablet Take 10 mg by mouth at bedtime as needed for for insomnia. - acetaminophen (TYLENOL EX STR RAPID RELEASE ORAL) Take 1-2 capsules by mouth every 6 hours as needed (pain). - latanoprost (XALATAN) 0.005 % ophthalmic solution Use 1 Drop in both eyes daily at bedtime. into affected eye(s). Facility-Administered Medications as of 01/08/2025 - albumin (25%) 25 g infusion - traZODone 50 mg tab(s) (DESYREL) - atorvastatin 40 mg tab(s) (LIPITOR) - bumetanide 2 mg tab(s) (BUMEX) - midodrine 5 mg tab(s) (PROAMITINE) - pantoprazole DR 40 mg tab(s) (PROTONIX) - hydrOXYzine HCl 25 mg tab(s) (ATARAX) - latanoprost 0.005 % 1 drop (XALATAN) - melatonin 9 mg tab(s) - dextrose 40 % 15 g - glucagon 1 mg injection - dextrose 10% iv bolus - NaCl 0.9% iv flush bag - insulin glargine 10 Units pen (long acting) - insulin lispro injection (rapid acting) (ADMElog) - acetaminophen 1,000 mg tab(s) (TYLENOL) - ondansetron (PF) 4 mg injection (ZOFRAN) Meds Comments as of 04/08/2019: 04/08/19 The medications are managed by this patient by: SPOUSE Antionette Shook, PharmD Problem List As Of Date 01/08/2025 Noted Resolved Type 2 diabetes mellitus without complication, *03/21/2016 Bilateral low back pain without sciatica [M54.5*03/21/2016 Chronic constipation [K59.09] 03/21/2016 12/02/2021 Mononeuropathy due to underlying disease [G59] 08/11/2016 Arteriosclerotic heart disease (ASHD) [I25.10] 09/23/2017 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] 09/24/2017 Hypertension, essential [I10] 10/23/2017 Lower leg edema [R60.0] 01/22/2018 12/02/2021 Chronic left hip pain [M25.552, G89.29] 03/04/2018 10/30/2022 Anemia of chronic renal failure, stage 3 (moder*03/05/2018 12/02/2021 Acute on chronic diastolic congestive heart zane*07/14/2018 Recurrent right pleural effusion [J90] 07/14/2018 12/02/2021 PVD (peripheral vascular disease) (HCC) [I73.9] 07/16/2018 Altered mental status [R41.82] 03/24/2019 07/05/2019 UTI (urinary tract infection) [N39.0] 03/24/2019 12/02/2021 Chronic combined systolic and diastolic CHF (co*03/24/2019 Hyperkalemia [E87.5] 03/24/2019 12/02/2021 Hypoxia [R09.02] 03/24/2019 12/02/2021 Hypoalbuminemia [E88.09] 03/24/2019 12/02/2021 GARRET (acute kidney injury) (HCC) [N17.9] 03/24/2019 12/02/2021 CKD (chronic kidney disease) stage 3, GFR 30-59*03/24/2019 04/18/2019 High phosphate levels [E83.39] 03/24/2019 12/02/2021 Hyponatremia [E87.1] 03/24/2019 12/02/2021 Delirium [R41.0] 03/29/2019 12/02/2021 Malnutrition of moderate degree (HCC) [E44.0] 04/01/2019 12/02/2021 Transition of care performed with sharing of cl*04/08/2019 04/18/2019 Chronic kidney disease, stage IV (severe) (HCC)*04/18/2019 12/02/2021 Ischemic cardiomyopathy [I25.5] (more content not included)... [facility] 01-07-2025 Note HNO ID: [id number] Author: MANUELA GUERRIER LSW Service: Care Management Author Type: Decorating Supervisor Type: Care Mgt Initial Assessment Filed: 01/07/2025 22:36 Note Text: CARE MANAGEMENT: ASSESSMENT AND DISCHARGE PLAN SERVICE DATE: January 07, 2025 SERVICE TIME: 10:33 PM PCP: Rigoberto Gould MD/reviewed Primary Contact: Extended Emergency Contact Information Primary Emergency Contact: Yun Aguilera Address: [facility] [place] [id number] [place] [address] Mobile Relation: Spouse Admission Status: Observation Insurance Provider: [employer] HMO Discharge Planning requested by: Per Department Practice Potential Transition Plans Advance Directives Current Advance Directive: Health Care Power of Hand Grinder, Living Will In Chart: No Assistant City Attorney Attempted to Assist with AD Completion: Yes Action: Education Provided Current Living Arrangements and Support Lives with: Spouse/significant other Type of Residence: Private Residence (House) Does the patient have to climb stairs at home?: No Support: Spouse/significant other How do you manage to accomplish the following: Independent: Meals/Meal Prep, Dress, Bathe/Shower, Ambulation, Medication Management, Going to the bathroom Needs Assistance: Transportation to appointments/community Current Services/Equipment Current Post-Acute Service(s): Dialysis Current Post-Acute Service(s) Provider: T//Sun Anitra Robin Discharge Planning Patient Goal(s): General wellness [place] of [place] Explained: [place] of [place] Given: No Reason Not Given: No placements necessary Are you interested in bedside delivery of your medications? No Discharge Planning Participant(s): Patient, Spouse/significant other Patient/Family Comments: Pt, and spouse, plan for d/c home when medically clear. Caregiver Assessment: Caregiver is ready, willing and able to meet the patient's needs as recommended by the inter-professional team: Yes Name of Caregiver: assists, as needed Transport at Discharge: Transportation Arrangements: To Be Determined Needs Prior to Discharge: Needs Prior to Discharge: To Be Determined Post-Acute Discharge Plan: CM reviewed EMR. Diagnosis include: History of CHF, CAD, Atrial Fib (Eliquis), DM2. Pt admitted due to Fractured Pelvis. Pt lives with spouse. Spouse assists with ADL's, as needed. Hx of homecare. No current services. SNF 2 years ago @ [facility]. [facility] and [facility], in [facility]. Uses wheelchair. ESRD T//Sat [facility]. Spouse will orange picker on d/c. CM will follow with d/c planning needs. SIGNATURE: JORGE Barbosa, [place] PATIENT NAME: Mauri Quinones DATE: January 07, 2025 TIME: 10:33 PM [facility] 01-07-2025 Note HNO ID: [id number] Author: GISELE TRAN RN Service: Nursing Author Type: Registered Nurse Type: Nursing Progress Note Filed: 01/07/2025 09:47 Note Text: [id number]: paged for admission orders [facility] 01-06-2025 Radiology Diagnostic study note [facility] 01-06-2025 Radiology Diagnostic study note [facility] 01-06-2025 Radiology Diagnostic study note [facility] 01-06-2025 History of Presen t illness Narrative Patient presents to have bladder drained. Patient is a dialysis patient but has retention and history of UTI's. Catheter inserted and 350 ml brownish urine. Patient to have drained weekly to try to prevent UTI. documented in this encounter [facility] 01-06-2025 Note HNO ID: [id number] Author: NICK MUÑOZ RN Service: ? Author Type: Registered Nurse Type: Progress Notes Filed: 01/23/2025 10:48 Note Text: Patient presents to have bladder drained. Patient is a dialysis patient but has retention and history of UTI's. Catheter inserted and 350 ml brownish urine. Patient to have drained weekly to try to prevent UTI. [facility] 01-06-2025 Telephone encounter Note Nick spoke with patient and coming in for Nurse visit today. [facility] 01-06-2025 Miscellaneous Notes Nick spoke with patient and coming in for Nurse visit today. Patient calling to see which He saw when there at office. I attempted to call back and get patient the information. Left Dr. Puckett's name on voicemail, and advised to call back if needed. PLAN: Butler out today Will call if has to have replaced Would do cysto then Jensen Puckett Jr, MD documented in this encounter [facility] 01-05-2025 Telephone encounter Note Patient calling to see which DrDavion He saw when there at office. I attempted to call back and get patient the information. Left Dr. Puckett's name on voicemail, and advised to call back if needed. PLAN: Butler out today Will call if has to have replaced Would do cysto then Jensen Puckett Jr, MD [facility] 01-03-2025 Note HNO ID: [id number] Author: JENSEN PUCKETT JR, MD Service: ? Author Type: Physician Type: Progress Notes Filed: 01/03/2025 15:13 Note Text: NEW PATIENT HISTORY AND PHYSICAL EXAM PATIENT INFO: Mauri Quinones 69 year old REFERRING PROVIDER: NO PCP PCP: Rigoberto Gould MD HPI Mauri Quinones is a 69 year old male refer for urinary retention. On HD. Makes very little urine. Would like butler removed. Discussed cysto. Declined for now. Not on alpha rufus. Would like to hold for now. Retention occurred during episode of UTI. Review of Systems Constitutional: Negative. Respiratory: Negative. Cardiovascular: Negative. Gastrointestinal: Negative. Genitourinary: Negative. Skin: Negative. Neurological: Negative. Psychiatric/Behavioral: Negative. LAB: Creatinine Date Value Ref Range Status 04/23/2023 4.48 (H) 0.50 - 1.40 mg/dL Final Comment: Patients receiving either N-Acetylcysteine (NAC) or Metamizole prior to venipuncture, may have falsely depressed results. No results found for: PSA Glucose, Urine Date Value 04/24/2022 Negative 03/23/2019 500 mg/dL Bilirubin, Urine (no units) Date Value 04/24/2022 Negative 03/23/2019 NEGATIVE Ketones, Urine Date Value 04/24/2022 Negative 03/23/2019 NEGATIVE mg/dL Specific [place], Ur (no units) Date Value 04/24/2022 1.014 03/23/2019 1.019 Hemoglobin/Blood,Ur Date Value 04/24/2022 Negative 07/25/2018 Negative pH, Urine (no units) Date Value 04/24/2022 7.0 03/23/2019 5.5 Protein, Urine Date Value 04/24/2022 2+ 03/24/2019 473.4 mg/dL Urobilinogen, Urine (EU/dL) Date Value 03/23/2019 1.0 Nitrites (no units) Date Value 04/24/2022 Negative 07/25/2018 Negative Nitrites Urine (no units) Date Value 03/23/2019 NEGATIVE WBC, Urine Date Value 04/24/2022 0-5 /HPF 03/23/2019 >900.0 /hpf MEDICATIONS: traZODone (DESYREL) 100 mg tablet Take 1 tablet by mouth daily at bedtime. ELIQUIS 5 mg tab(s) Take 1 tablet by mouth. midodrine (PROAMITINE) 5 mg tablet Take 5 mg by mouth three times a day. ammonium lactate (LAC-HYDRIN) 12 % cream Apply to affected area as needed. LANTUS SOLOSTAR U-100 INSULIN 100 unit/mL (3 mL) Inject 10 Units subcutaneously daily at bedtime. hydrOXYzine HCl (ATARAX) 25 mg tablet Take 1 tablet by mouth every 6 hours as needed for itching/rash. Tadalafil (CIALIS) 20 mg tablet Take 1 tablet by mouth once daily as needed. Do not take at same time as doxazosin pantoprazole DR (PROTONIX) 40 mg tablet Take 1 tablet by mouth every morning. Insulin [place], Disposable, (BD ULTRA-FINE GOLDY PEN NEEDLE) 32 gauge x Use one needle for each dose. once/day. atorvastatin (LIPITOR) 40 mg tablet Take 1 tablet by mouth daily at bedtime. bumetanide (BUMEX) 2 mg tablet Take 1 tablet by mouth every morning. loratadine (CLARITIN) 10 mg tablet Take 1 tablet by mouth once daily. sevelamer carbonate (RENVELA) 800 mg tablet Take 800 mg by mouth three times daily with meals. B Complex-Vitamin C-Folic Acid (NEPHRO-SAVANAH) 0.8 mg tab Take 1 tablet by mouth every morning. melatonin 5 mg tablet Take 10 mg by mouth at bedtime as needed for for insomnia. acetaminophen (TYLENOL EX STR RAPID RELEASE ORAL) Take 1-2 capsules by mouth every 6 hours as needed (pain). latanoprost (XALATAN) 0.005 % ophthalmic solution Use 1 Drop in both eyes daily at bedtime. into affected eye(s). HISTORIES PAST MEDICAL HISTORY Diagnosis Date Acute on chronic diastolic congestive heart failure ([facility]) 07/14/2018 GARRET (acute kidney injury) 03/24/2019 GARRET (acute kidney injury) 03/24/2019 Ankylosing spondylitis ([facility]) CAD (coronary artery disease) Cellulitis Chronic combined systolic and diastolic CHF (congestive heart failure) ([facility]) 03/24/2019 CKD (chronic kidney disease) stage 3, GFR 30-59 ml/min ([facility]) 03/24/2019 Constipation Diabetes ([facility]) Gout High phosphate levels 03/24/2019 History of coronary artery bypass graft 04/18/2019 04/10/17 CARTY to LAD, SVG to PDA, SVG to OM Hx of fracture multiple bones Hyperkalemia 03/24/2019 Hypoalbuminemia 03/24/2019 Hyponatremia 03/24/2019 Hypoxia 03/24/2019 Ischemic cardiomyopathy 04/18/2019 Echocardiogram 01/10/19 Dr. Nunez: Dilated left ventricle, left ventricular ejection fraction 40%, mild to moderate systolic dysfunction, moderate concentric LVH, dilated left and right atria. Mild mitral valve thickening with papillary muscle dysfunction, mild mitral valve insufficiency, tricuspid valve insufficiency, aortic valve insufficiency, pulmonic valve insufficiency. Aortic valve calcifi NSTEMI (non-ST elevated myocardial infarction) ([facility]) 03/12/2017 [facility] admit Osteoarthritis Transition of care performed with sharing of clinical summary 04/08/2019 Admit [facility] 03/21/19-03/22/19 Discharge diagnoses chronic kidney disease with worsening creatinine, acute kidney injury Hypokalemia Toxic encephalopathy secondary to Flexeril overusage Type 2 diabe (more content not included)... [facility] 01-03-2025 History of Presen t illness Narrative NEW PATIENT HISTORY AND PHYSICAL EXAM PATIENT INFO: Mauri L Quinones 69 year old REFERRING PROVIDER: NO PCP PCP: Rigoberto Gould MD HPI Mauri Quinones is a 69 year old male refer for urinary retention. On HD. Makes very little urine. Would like butler removed. Discussed cysto. Declined for now. Not on alpha rufus. Would like to hold for now. Retention occurred during episode of UTI. Review of Systems Constitutional: Negative. Respiratory: Negative. Cardiovascular: Negative. Gastrointestinal: Negative. Genitourinary: Negative. Skin: Negative. Neurological: Negative. Psychiatric/Behavioral: Negative. LAB: Creatinine Date Value Ref Range Status 04/23/2023 4.48 (H) 0.50 - 1.40 mg/dL Final Comment: Patients receiving either N-Acetylcysteine (NAC) or Metamizole prior to venipuncture, may have falsely depressed results. No results found for: PSA Glucose, Urine Date Value 04/24/2022 Negative 03/23/2019 500 mg/dL Bilirubin, Urine (no units) Date Value 04/24/2022 Negative 03/23/2019 NEGATIVE Ketones, Urine Date Value 04/24/2022 Negative 03/23/2019 NEGATIVE mg/dL Specific [place], Ur (no units) Date Value 04/24/2022 1.014 03/23/2019 1.019 Hemoglobin/Blood,Ur Date Value 04/24/2022 Negative 07/25/2018 Negative pH, Urine (no units) Date Value 04/24/2022 7.0 03/23/2019 5.5 Protein, Urine Date Value 04/24/2022 2+ 03/24/2019 473.4 mg/dL Urobilinogen, Urine (EU/dL) Date Value 03/23/2019 1.0 Nitrites (no units) Date Value 04/24/2022 Negative 07/25/2018 Negative Nitrites Urine (no units) Date Value 03/23/2019 NEGATIVE WBC, Urine Date Value 04/24/2022 0-5 /HPF 03/23/2019 >900.0 /hpf MEDICATIONS: traZODone (DESYREL) 100 mg tablet Take 1 tablet by mouth daily at bedtime. ELIQUIS 5 mg tab(s) Take 1 tablet by mouth. midodrine (PROAMITINE) 5 mg tablet Take 5 mg by mouth three times a day. ammonium lactate (LAC-HYDRIN) 12 % cream Apply to affected area as needed. LANTUS SOLOSTAR U-100 INSULIN 100 unit/mL (3 mL) Inject 10 Units subcutaneously daily at bedtime. hydrOXYzine HCl (ATARAX) 25 mg tablet Take 1 tablet by mouth every 6 hours as needed for itching/rash. Tadalafil (CIALIS) 20 mg tablet Take 1 tablet by mouth once daily as needed. Do not take at same time as doxazosin pantoprazole DR (PROTONIX) 40 mg tablet Take 1 tablet by mouth every morning. Insulin [place], Disposable, (BD ULTRA-FINE GOLDY PEN NEEDLE) 32 gauge x Use one needle for each dose. once/day. atorvastatin (LIPITOR) 40 mg tablet Take 1 tablet by mouth daily at bedtime. bumetanide (BUMEX) 2 mg tablet Take 1 tablet by mouth every morning. loratadine (CLARITIN) 10 mg tablet Take 1 tablet by mouth once daily. sevelamer carbonate (RENVELA) 800 mg tablet Take 800 mg by mouth three times daily with meals. B Complex-Vitamin C-Folic Acid (NEPHRO-SAVANAH) 0.8 mg tab Take 1 tablet by mouth every morning. melatonin 5 mg tablet Take 10 mg by mouth at bedtime as needed for for insomnia. acetaminophen (TYLENOL EX STR RAPID RELEASE ORAL) Take 1-2 capsules by mouth every 6 hours as needed (pain). latanoprost (XALATAN) 0.005 % ophthalmic solution Use 1 Drop in both eyes daily at bedtime. into affected eye(s). HISTORIES PAST MEDICAL HISTORY Diagnosis Date Acute on chronic diastolic congestive heart failure ([facility]) 07/14/2018 GARRET (acute kidney injury) 03/24/2019 [facility] (acute kidney injury) 03/24/2019 Ankylosing spondylitis ([facility]) CAD (coronary artery disease) Cellulitis Chronic combined systolic and diastolic CHF (congestive heart failure) ([facility]) 03/24/2019 CKD (chronic kidney disease) stage 3, GFR 30-59 ml/min ([facility]) 03/24/2019 Constipation Diabetes ([facility]) Gout High phosphate levels 03/24/2019 History of coronary artery bypass graft 04/18/2019 04/10/17 CARTY to LAD, SVG to PDA, SVG to OM Hx of fracture multiple bones Hyperkalemia 03/24/2019 Hypoalbuminemia 03/24/2019 Hyponatremia 03/24/2019 Hypoxia 03/24/2019 Ischemic cardiomyopathy 04/18/2019 Echocardiogram 01/10/19 Dr. Nunez: Dilated left ventricle, left ventricular ejection fraction 40%, mild to moderate systolic dysfunction, moderate concentric LVH, dilated left and right atria. Mild mitral valve thickening with papillary muscle dysfunction, mild mitral valve insufficiency, tricuspid valve insufficiency, aortic valve insufficiency, pulmonic valve insufficiency. Aortic valve calcifi NSTEMI (non-ST elevated myocardial infarction) ([facility]) 03/12/2017 [facility] admit Osteoarthritis Transition of care performed with sharing of clinical summary 04/08/2019 Admit [facility] 03/21/19-03/22/19 Discharge diagnoses chronic kidney disease with worsening creatinine, acute kidney injury Hypokalemia Toxic encephalopathy secondary to Flexeril overusage Type 2 diabetes Ischemic cardiomyopathy Coronary artery disease Ligamental cervical neck strain and acute Pulmonary hypertension Hypertension Pyuria Preadmit: to [facility] ED with slurred speech, lethargy. FAMILY HISTORY Problem Relation Age of Onset Arthritis Mother Coronary Artery Disease Mother Diabetes Mother Heart Mother Hypertension Mother Alcohol/Drug Father Arthritis Father Heart Father Hypertension Father SOCIAL HISTORY Social History Tobacco Use Smoking status: Never Smokeless tobacco: Former Types: Chew Quit date: 04/17/2017 Substance Use Topics Alcohol use: No Comment: seldom Drug use: No PHYSICAL EXAMINATION Wt 80.3 kg (177 lb) BMI 25.40 kg/m General appearance: Well appearing, alert, in no acute distress, and well-hydrated, well nourished Skin: Skin color, texture, turgor normal, no suspicious rashes or lesions Respiratory:+ effort Cardiovascular: Not examined GI: Normal abdominal exam, Abdomen soft, non-tender. No masses, organomegaly Musculoskeletal: normal ROM Neuro: No gross neurologic defecits Genitourinary: not examined ASSESSMENT: (R33.9) Urinary retention (primary encounter diagnosis) PLAN: Butler out today Will call if has to have replaced Would do cysto then Jensen Puckett Jr, MD documented in this encounter [facility] 01-02-2025 Telephone encounter Note Call placed to patient and notified of below with verbalized understanding. Susu Hernandez RN [facility] 01-02-2025 Miscellaneous Notes Call placed to patient and notified of below with verbalized understanding. Susu Hernandez RN Lets increase the dose to 100 mg at bedtime. Let me know again in a couple weeks how he is doing. It could be increased further if need be. Order sent to pharmacy. May take 2 of the 50s to use them up. Patient calls with update on trazodone. Patient reports that he sees no difference in sleep with the trazodone. He reports the first few nights he was able to sleep several hours but since then he is back to sleeping an hour to an hour and a half every night. He reports that he takes the trazodone 30 minutes prior to bed and takes 2 of the melatonin either before or after and neither way have helped. Patient asking if he can increase the dose of trazodone. Pharmacy is [facility]. Susu Hernandez RN documented in this encounter [facility] 01-02-2025 Telephone encounter Note Lets increase the dose to 100 mg at bedtime. Let me know again in a couple weeks how he is doing. It could be increased further if need be. Order sent to pharmacy. May take 2 of the 50s to use them up. [facility] 01-02-2025 Telephone encounter Note Patient calls with update on trazodone. Patient reports that he sees no difference in sleep with the trazodone. He reports the first few nights he was able to sleep several hours but since then he is back to sleeping an hour to an hour and a half every night. He reports that he takes the trazodone 30 minutes prior to bed and takes 2 of the melatonin either before or after and neither way have helped. Patient asking if he can increase the dose of trazodone. Pharmacy is [facility]. Susu Hernandez RN [facility] 12-30-2024 Telephone encounter Note [facility]- phoned concerned about pt not voiding for one week and asked if patient had seen pcp. Given Rozina update on patient per chart notes. Rozina will call patient to discuss. [facility] 12-30-2024 Miscellaneous Notes [facility]- phoned concerned about pt not voiding for one week and asked if patient had seen pcp. Given Rozina update on patient per chart notes. Rozina will call patient to discuss. documented in this encounter [facility] 12-30-2024 Telephone encounter Note Patient calling with physician referral request per 12/29/24 ER referral for persistent urinary retention. Patient referred to Urology Department. Patient denies any new or worsening symptoms of which a provider is not aware:Yes. Patient was conferenced to [facility] in Appointment Center for scheduling. GO TO THE EMERGENCY ROOM OR CALL 911 IF: * You develop any new symptoms * Your condition worsens * You are concerned or anxious about your condition for any other reason. If you have any questions, you can call Nurse cap and hat production supervisor back. [facility] 12-30-2024 Miscellaneous Notes Patient calling with physician referral request per 12/29/24 ER referral for persistent urinary retention. Patient referred to Urology Department. Patient denies any new or worsening symptoms of which a provider is not aware:Yes. Patient was conferenced to [facility] in Appointment Center for scheduling. GO TO THE EMERGENCY ROOM OR CALL 911 IF: * You develop any new symptoms * Your condition worsens * You are concerned or anxious about your condition for any other reason. If you have any questions, you can call Nurse cap and hat production supervisor back. documented in this encounter [facility] 12-29-2024 Note HNO ID: [id number] Author: RIGOBERTO GOULD MD Service: ? Author Type: Physician Type: Progress Notes Filed: 12/29/2024 15:18 Note Text: Patient presents with: ER F/U Hospital F/U HPI: Patient presents today for office visit for follow up. Was in [facility] ER on 12/22/24 had butler placed and 415 cc of urine drained. Has not seen urology yet because they didn't take his insurance. Was given rocephin in ER. Currently on cefdinir has 3 days left. States that has not urinated at all since left [facility] that day. He normally urinates daily. He said he is not uncomfortable like he was. No fever or chills. Also due for hospital followup. Is a dialysis patient. He said he talked the er provider out of keeping a butler in. They told him he would likely be back. MEDICATIONS: Current Outpatient Medications Medication Sig ELIQUIS 5 mg tab(s) Take 1 tablet by mouth. midodrine (PROAMITINE) 5 mg tablet Take 2 tablets by mouth. traZODone (DESYREL) 50 mg tablet Take 1 tablet by mouth daily at bedtime. ammonium lactate (LAC-HYDRIN) 12 % cream Apply to affected area as needed. LANTUS SOLOSTAR U-100 INSULIN 100 unit/mL (3 mL) Inject 10 Units subcutaneously daily at bedtime. hydrOXYzine HCl (ATARAX) 25 mg tablet Take 1 tablet by mouth every 6 hours as needed for itching/rash. Tadalafil (CIALIS) 20 mg tablet Take 1 tablet by mouth once daily as needed. Do not take at same time as doxazosin pantoprazole DR (PROTONIX) 40 mg tablet Take 1 tablet by mouth every morning. Insulin [place], Disposable, (BD ULTRA-FINE GOLDY PEN NEEDLE) 32 gauge x Use one needle for each dose. once/day. atorvastatin (LIPITOR) 40 mg tablet Take 1 tablet by mouth daily at bedtime. bumetanide (BUMEX) 2 mg tablet Take 1 tablet by mouth every morning. loratadine (CLARITIN) 10 mg tablet Take 1 tablet by mouth once daily. aspirin, enteric coated (ASPIRIN, ENTERIC COATED) 81 mg EC tablet Take 81 mg by mouth once daily. Pt to call and clarify if needs to stop (Patient not taking: Reported on 12/17/2024) sevelamer carbonate (RENVELA) 800 mg tablet Take 800 mg by mouth three times daily with meals. B Complex-Vitamin C-Folic Acid (NEPHRO-SAVANAH) 0.8 mg tab Take 1 tablet by mouth every morning. melatonin 5 mg tablet Take 10 mg by mouth at bedtime as needed for for insomnia. acetaminophen (TYLENOL EX STR RAPID RELEASE ORAL) Take 1-2 capsules by mouth every 6 hours as needed (pain). doxazosin (CARDURA) 4 mg tablet Take 0.5 tablets by mouth twice daily. latanoprost (XALATAN) 0.005 % ophthalmic solution Use 1 Drop in both eyes daily at bedtime. into affected eye(s). No current facility-administered medications for this visit. ALLERGIES: ALLERGIES Allergen Reactions Lyrica [Pregabalin] Swelling PAST MEDICAL HISTORY Diagnosis Date Acute on chronic diastolic congestive heart failure ([facility]) 07/14/2018 GARRET (acute kidney injury) 03/24/2019 GARRET (acute kidney injury) 03/24/2019 Ankylosing spondylitis ([facility]) CAD (coronary artery disease) Cellulitis Chronic combined systolic and diastolic CHF (congestive heart failure) ([facility]) 03/24/2019 CKD (chronic kidney disease) stage 3, GFR 30-59 ml/min ([facility]) 03/24/2019 Constipation Diabetes ([facility]) Gout High phosphate levels 03/24/2019 History of coronary artery bypass graft 04/18/2019 04/10/17 CARTY to LAD, SVG to PDA, SVG to OM Hx of fracture multiple bones Hyperkalemia 03/24/2019 Hypoalbuminemia 03/24/2019 Hyponatremia 03/24/2019 Hypoxia 03/24/2019 Ischemic cardiomyopathy 04/18/2019 Echocardiogram 01/10/19 Dr. Nunez: Dilated left ventricle, left ventricular ejection fraction 40%, mild to moderate systolic dysfunction, moderate concentric LVH, dilated left and right atria. Mild mitral valve thickening with papillary muscle dysfunction, mild mitral valve insufficiency, tricuspid valve insufficiency, aortic valve insufficiency, pulmonic valve insufficiency. Aortic valve calcifi NSTEMI (non-ST elevated myocardial infarction) ([facility]CC) 03/12/2017 [facility] admit Osteoarthritis Transition of care performed with sharing of clinical summary 04/08/2019 Admit [facility] 03/21/19-03/22/19 Discharge diagnoses chronic kidney disease with worsening creatinine, acute kidney injury Hypokalemia Toxic encephalopathy secondary to Flexeril overusage Type 2 diabetes Ischemic cardiomyopathy Coronary artery disease Ligamental cervical neck strain and acute Pulmonary hypertension Hypertension Pyuria Preadmit: to [facility] ED with slurred speech, lethargy. PAST SURGICAL HISTORY Procedure Laterality Date ARTHRP ACETBLR/PROX FEM PROSTC AGRFT/ALGRFT Right 2018 Dr Peguero CORONARY ARTERY BYPASS GRAFT 04/12/2017 x 3 FEMUR RIGHT OP SURGERY Right Repair of fracture with hardward HIP SURGERY HX Right pin KNEE ARTHROSCOPY Left x2 KNEE SURGERY HX Right TKR, right, arthoscopy x3 PAST SURGICAL HISTORY OF 09/07/2017 08/15/17 fx radius in 2 places; plate and screws.Plate and screws 09/07/17 Jensen Downey (more content not included)... [facility] 12-29-2024 History of Presen t illness Narrative Patient presents with: ER F/U Hospital F/U HPI: Patient presents today for office visit for follow up. Was in [facility] ER on 12/22/24 had butler placed and 415 cc of urine drained. Has not seen urology yet because they didn't take his insurance. Was given rocephin in ER. Currently on cefdinir has 3 days left. States that has not urinated at all since left [facility] that day. He normally urinates daily. He said he is not uncomfortable like he was. No fever or chills. Also due for hospital followup. Is a dialysis patient. He said he talked the er provider out of keeping a butler in. They told him he would likely be back. MEDICATIONS: Current Outpatient Medications Medication Sig ELIQUIS 5 mg tab(s) Take 1 tablet by mouth. midodrine (PROAMITINE) 5 mg tablet Take 2 tablets by mouth. traZODone (DESYREL) 50 mg tablet Take 1 tablet by mouth daily at bedtime. ammonium lactate (LAC-HYDRIN) 12 % cream Apply to affected area as needed. LANTUS SOLOSTAR U-100 INSULIN 100 unit/mL (3 mL) Inject 10 Units subcutaneously daily at bedtime. hydrOXYzine HCl (ATARAX) 25 mg tablet Take 1 tablet by mouth every 6 hours as needed for itching/rash. Tadalafil (CIALIS) 20 mg tablet Take 1 tablet by mouth once daily as needed. Do not take at same time as doxazosin pantoprazole DR (PROTONIX) 40 mg tablet Take 1 tablet by mouth every morning. Insulin [place], Disposable, (BD ULTRA-FINE GOLDY PEN NEEDLE) 32 gauge x Use one needle for each dose. once/day. atorvastatin (LIPITOR) 40 mg tablet Take 1 tablet by mouth daily at bedtime. bumetanide (BUMEX) 2 mg tablet Take 1 tablet by mouth every morning. loratadine (CLARITIN) 10 mg tablet Take 1 tablet by mouth once daily. aspirin, enteric coated (ASPIRIN, ENTERIC COATED) 81 mg EC tablet Take 81 mg by mouth once daily. Pt to call and clarify if needs to stop (Patient not taking: Reported on 12/17/2024) sevelamer carbonate (RENVELA) 800 mg tablet Take 800 mg by mouth three times daily with meals. B Complex-Vitamin C-Folic Acid (NEPHRO-SAVANAH) 0.8 mg tab Take 1 tablet by mouth every morning. melatonin 5 mg tablet Take 10 mg by mouth at bedtime as needed for for insomnia. acetaminophen (TYLENOL EX STR RAPID RELEASE ORAL) Take 1-2 capsules by mouth every 6 hours as needed (pain). doxazosin (CARDURA) 4 mg tablet Take 0.5 tablets by mouth twice daily. latanoprost (XALATAN) 0.005 % ophthalmic solution Use 1 Drop in both eyes daily at bedtime. into affected eye(s). No current facility-administered medications for this visit. ALLERGIES: ALLERGIES Allergen Reactions Lyrica [Pregabalin] Swelling PAST MEDICAL HISTORY Diagnosis Date Acute on chronic diastolic congestive heart failure (HCC) 07/14/2018 GARRET (acute kidney injury) 03/24/2019 GARRET (acute kidney injury) 03/24/2019 Ankylosing spondylitis ([facility]) CAD (coronary artery disease) Cellulitis Chronic combined systolic and diastolic CHF (congestive heart failure) ([facility]) 03/24/2019 CKD (chronic kidney disease) stage 3, GFR 30-59 ml/min ([facility]) 03/24/2019 Constipation Diabetes ([facility]) Gout High phosphate levels 03/24/2019 History of coronary artery bypass graft 04/18/2019 04/10/17 CARTY to LAD, SVG to PDA, SVG to OM Hx of fracture multiple bones Hyperkalemia 03/24/2019 Hypoalbuminemia 03/24/2019 Hyponatremia 03/24/2019 Hypoxia 03/24/2019 Ischemic cardiomyopathy 04/18/2019 Echocardiogram 01/10/19 Dr. Nunez: Dilated left ventricle, left ventricular ejection fraction 40%, mild to moderate systolic dysfunction, moderate concentric LVH, dilated left and right atria. Mild mitral valve thickening with papillary muscle dysfunction, mild mitral valve insufficiency, tricuspid valve insufficiency, aortic valve insufficiency, pulmonic valve insufficiency. Aortic valve calcifi NSTEMI (non-ST elevated myocardial infarction) ([facility]) 03/12/2017 [facility] admit Osteoarthritis Transition of care performed with sharing of clinical summary 04/08/2019 Admit [facility] 03/21/19-03/22/19 Discharge diagnoses chronic kidney disease with worsening creatinine, acute kidney injury Hypokalemia Toxic encephalopathy secondary to Flexeril overusage Type 2 diabetes Ischemic cardiomyopathy Coronary artery disease Ligamental cervical neck strain and acute Pulmonary hypertension Hypertension Pyuria Preadmit: to [facility] ED with slurred speech, lethargy. PAST SURGICAL HISTORY Procedure Laterality Date ARTHRP ACETBLR/PROX FEM PROSTC AGRFT/ALGRFT Right 2019 Dr Peguero CORONARY ARTERY BYPASS GRAFT 04/12/2017 x 3 FEMUR RIGHT OP SURGERY Right Repair of fracture with hardward HIP SURGERY HX Right pin KNEE ARTHROSCOPY Left x2 KNEE SURGERY HX Right TKR, right, arthoscopy x3 PAST SURGICAL HISTORY OF 09/07/2017 08/15/17 fx radius in 2 places; plate and screws.Plate and screws 09/07/17 [facility] TOE SURGERY HX Right FAMILY HISTORY Problem Relation Age of Onset Arthritis Mother Coronary Artery Disease Mother Diabetes Mother Heart Mother Hypertension Mother Alcohol/Drug Father Arthritis Father Heart Father Hypertension Father Social History Tobacco Use Smoking status: Never Smokeless tobacco: Former Types: Chew Quit date: 04/17/2017 Substance Use Topics Alcohol use: No Comment: seldom Drug use: No Reviewed current medications, allergies, past medical history, surgical history, family history and social history today. REVIEW OF SYSTEMS All other reviewed and negative other than HPI. VITALS: BP 104/62 Pulse 72 Wt 80.3 kg (177 lb) SpO2 96% BMI 25.40 kg/m Last 4 Encounter Wt Readings: Date: Wt: 12/05/2024 81.2 kg (179 lb) 10/07/2024 77.1 kg (170 lb) 09/04/2024 0 kg () 06/30/2024 77.6 kg (171 lb) PHYSICAL EXAMINATION: Abdomen: soft, not tender. Not distended as far as I can tell however, as I explained to the patient, I have no way to evaluate his bladder in the office. ASSESSMENT/PLAN: 1. Urinary tract infection without hematuria, site unspecified - ICD9: 599.0, ICD10: N39.0 (primary diagnosis) - given the fact her always produces some urine and has literally had not output since last cathed and he refused indwelling butler, he likely needs an urgent bladder scan and likely butler. We can have him see urology but I cannot treat or evaluate him here. No charge. Return for hospital follow up once have addressed that issue. To local ER 2. Urinary retention - ICD9: 788.20, ICD10: R33.9 - CONSULT TO UROLOGY Rigoberto Gould MD documented in this encounter [facility] 12-26-2024 Telephone encounter Note Called and left a voicemail for the Patient to call back and ask for a nurse to receive the providers message. Bryce Landin RN [facility] 12-26-2024 Miscellaneous Notes Called and left a voicemail for the Patient to call back and ask for a nurse to receive the providers message. Bryce Landin RN If he normally puts out regular urine, needs evaluated in the er to assess if he is acutely retaining. reports pt has not urinated since Sunday, when butler was discontinued at [facility]. 5 days. reports pt was in [facility] 2 days: at first had vomiting. Pt had missed dialysis 2 days prior to going to [facility]. [facility] discovered pt was overloaded with fluids since missed dialysis, and pt had a UTI. reports pt's urine was brown. [facility] also decreased bumex for pt to omit on dialysis days. Dr. Jackson changed those orders for pt to take bumex daily now. states this may have contributed to why patient hasn't urinated since Sunday, plus a lot of fluid was removed during dialysis on Sat, Sun, & , and the UTI. A-fib was also discovered during stay at [facility]. Pt has appt with cardiology today to follow up on this. Pt plans to return to [facility] ER if develops urine symptoms: pain, bladder distension, bloating. Pt is not having any of these symptoms today. In the meantime he's asking pcp to send referral to [facility] urologist. Pt is willing to travel since [place] does not have a urology doctor. Asking pcp if you can place the referral. Answer Assessment - Initial Assessment Questions 1. SYMPTOM: Pt has not urinated since Sunday- [facility] removed butler per pt request on Sunday. reports there was a lot of urine in the butler when they removed it. Pt also has UTI and [facility] gave IV AB's and sent pt home with AB pills. Pt is taking these. Pt gets dialysis TTSat. Prior to ER visit he spent 2 days at [facility] for vomiting, he was overloaded with fluid b/c he missed dialysis 2 days- [facility] did the dialysis during stay. This past Sat he had dialysis- also had Tue and Thurs. [facility] also found a-fib during hospital stay. Pt has appt with hand sample maker today to follow up on a-fib. Pt taking eliquis now. Pt taking medodrine to keep BP up b/c it kept dropping at dialysis. Reports patient was urinating twice a day at least prior to hospital stay. Hospital took him off bumex while in the hospital, on days he had dialysis. Dr. Jackson found out about this and said he wants patient on the bumex daily and pt is now taking it daily. Pt states he has no pain or pressure right now. No swelling or distension in bladder. Pt states he is having no symptoms at all of urinary issues today, just hasn't urinated since Sunday. states the fluid was removed during dialysis on Sun, Sun, & , which is why patient is not having symptoms. [facility]- Dr. Allen's office will not accept pts insurance but [facility] ER does, and instructed pt to return if any bladder symptoms. Pt plans to return to ER if having any urinary concerns: pressure, bloating, distention, pain. Pt is not having these symptoms today. Pt only contacted pcp office to ask for referral to urologist at [facility], since Dr. Allen does not accept his insurance. Pt wants to schedule appt with [facility] urologist to figure out why he has not urinated since Sunday. reports patient has seen urologist at [place] in the past. Asking if pcp can write a referral so he can schedule appt with urologist. Protocols used: Urinary [id number] documented in this encounter [facility] 12-26-2024 Telephone encounter Note If he normally puts out regular urine, needs evaluated in the er to assess if he is acutely retaining. [facility] 12-26-2024 Telephone encounter Note reports pt has not urinated since Sunday, when butler was discontinued at [facility]. 5 days. reports pt was in [facility] 2 days: at first had vomiting. Pt had missed dialysis 2 days prior to going to [facility]. [facility] discovered pt was overloaded with fluids since missed dialysis, and pt had a UTI. reports pt's urine was brown. [facility] also decreased bumex for pt to omit on dialysis days. Dr. Jackson changed those orders for pt to take bumex daily now. states this may have contributed to why patient hasn't urinated since Sunday, plus a lot of fluid was removed during dialysis on Sun, Sun, & , and the UTI. A-fib was also discovered during stay at [facility]. Pt has appt with cardiology today to follow up on this. Pt plans to return to [facility] ER if develops urine symptoms: pain, bladder distension, bloating. Pt is not having any of these symptoms today. In the meantime he's asking pcp to send referral to [facility] urologist. Pt is willing to travel since [place] does not have a urology doctor. Asking pcp if you can place the referral. Answer Assessment - Initial Assessment Questions 1. SYMPTOM: Pt has not urinated since Sunday- [facility] removed butler per pt request on Sunday. reports there was a lot of urine in the btuler when they removed it. Pt also has UTI and [facility] gave IV AB's and sent pt home with AB pills. Pt is taking these. Pt gets dialysis TTSat. Prior to ER visit he spent 2 days at [facility] for vomiting, he was overloaded with fluid b/c he missed dialysis 2 days- [facility] did the dialysis during stay. This past Sat he had dialysis- also had e and . [facility] also found a-fib during hospital stay. Pt has appt with hand sample maker today to follow up on a-fib. Pt taking eliquis now. Pt taking medodrine to keep BP up b/c it kept dropping at dialysis. Reports patient was urinating twice a day at least prior to hospital stay. Hospital took him off bumex while in the hospital, on days he had dialysis. Dr. Jackson found out about this and said he wants patient on the bumex daily and pt is now taking it daily. Pt states he has no pain or pressure right now. No swelling or distension in bladder. Pt states he is having no symptoms at all of urinary issues today, just hasn't urinated since Sunday. states the fluid was removed during dialysis on Sun, Sun, & , which is why patient is not having symptoms. [facility]- Dr. Allen's office will not accept pts insurance but [facility] ER does, and instructed pt to return if any bladder symptoms. Pt plans to return to ER if having any urinary concerns: pressure, bloating, distention, pain. Pt is not having these symptoms today. Pt only contacted pcp office to ask for referral to urologist at [facility], since Dr. lAlen does not accept his insurance. Pt wants to schedule appt with [facility] urologist to figure out why he has not urinated since Sunday. reports patient has seen urologist at [place] in the past. Asking if pcp can write a referral so he can schedule appt with urologist. Protocols used: Urinary [id number] [facility] 12-17-2024 Note HNO ID: [id number] Author: NUPUR DE LA ROSA MD Service: ? Author Type: Physician Type: Progress Notes Filed: 01/14/2025 22:05 Note Text: REASON FOR VISIT / CHIEF COMPLAINT CHIEF COMPLAINT: Mauri Quinones is a 69 year old male who presents today for follow up office visit. Patient presents with: Right Leg - Follow Up, Pain: Bone scan results HISTORY OF PRESENT ILLNESS (HPI) PAIN EVALUATION 12/10/2024 1030 Pain Level: 3 Pain Location: Leg-Right Description: Sore Duration Amount of Time: -- ongoing Frequency: Intermittent Here for follow-up of his right hip pain. A bone scan was ordered after his last visit as well as a screening battery of lab test to rule out possibility of infection. He reports he continues to have pain in his right hip which has undergone arthroplasty in 2019 Any new injury, since being seen last: No Is there any overall improvement in your condition? No Does anything make it worse?: Yes, weightbearing Does anything make it better?: Yes, activity modification REVIEW OF SYMPTOMS: Integumentary: Any recent skin changes or rashes? No Neurologic: Any numbness or tingling in the LOCAL AREA? No Endocrine: Any diagnosis of diabetes? Yes Hematologic: Any recent bleeding episodes? No ALLERGIES ALLERGIES Allergen Reactions Lyrica [Pregabalin] Swelling PAST MEDICAL HISTORY PAST MEDICAL HISTORY Diagnosis Date Ankylosing spondylitis (HCC) CAD (coronary artery disease) Cellulitis Chronic combined systolic and diastolic CHF (congestive heart failure) ([facility]) 03/24/2019 CKD (chronic kidney disease) stage 3, GFR 30-59 ml/min ([facility]) 03/24/2019 Constipation Diabetes ([facility]) ESRD (end stage renal disease) ([facility]) Gout History of coronary artery bypass graft 04/18/2019 04/10/17 CARTY to LAD, SVG to PDA, SVG to OM Hx of fracture multiple bones Ischemic cardiomyopathy 04/18/2019 Echocardiogram 01/10/19 Dr. Nunez: Dilated left ventricle, left ventricular ejection fraction 40%, mild to moderate systolic dysfunction, moderate concentric LVH, dilated left and right atria. Mild mitral valve thickening with papillary muscle dysfunction, mild mitral valve insufficiency, tricuspid valve insufficiency, aortic valve insufficiency, pulmonic valve insufficiency. Aortic valve calcifi NSTEMI (non-ST elevated myocardial infarction) ([facility]) 03/12/2017 [facility] admit Osteoarthritis PAST SURGICAL HISTORY Procedure Laterality Date ARTHRP ACETBLR/PROX FEM PROSTC AGRFT/ALGRFT Right 2019 Dr Peguero CORONARY ARTERY BYPASS GRAFT 04/12/2017 x 3 FEMUR RIGHT OP SURGERY Right Repair of fracture with hardward HIP SURGERY HX Right pin KNEE ARTHROSCOPY Left x2 KNEE SURGERY HX Right TKR, right, arthoscopy x3 PAST SURGICAL HISTORY OF 09/07/2017 08/15/17 fx radius in 2 places; plate and screws.Plate and screws 09/07/17 [facility] TOE SURGERY HX Right PHYSICAL EXAMINATION Vitals: There were no vitals taken for this visit. Body Habitus:no acute distress and alert and oriented Orientation: Normal: Oriented to person, place and time Psych: normal Sensation: sensation to light touch is grossly normal bilaterally Skin: Color, texture, turgor normal. No rashes or lesions Swelling: no swelling noted Stance: normal cervical posture, shoulder alignment, and no joint deformities or swelling noted Ortho Exam Unchanged from previous visit Right hip painful to passive range of motion Imaging : Bone scan-* Right hip periprosthetic uptake at the level of the greater trochanter on the delayed phase images, suggesting stress reaction. Follow-up evaluation, as clinically indicated. No abnormal three-phase increased uptake. CRP Date Value Ref Range Status 11/14/2024 1.8 (H) <0.9 mg/dL Final Sed Rate, Westergren Date Value Ref Range Status 11/14/2024 2 0 - 15 mm/hr Final Hemoglobin (g/dL) Date Value 01/14/2025 13.2 06/01/2020 9.8 Hematocrit (%) Date Value 01/14/2025 39.9 06/01/2020 31.1 WBC (k/uL) Date Value 01/14/2025 11.11 06/01/2020 7.03 Proceedures : None Assessment: Right hip pain without any objective signs of sepsis. It is possible were dealing with an aseptic loosening. Patient has had multiple surgeries on the right leg. Plain films show significant osteopenia raising concerns about whether or not a revision is even possible. Cultures from aspirate taken for are negative for growth however it did show an elevation in the white blood count 5,700. This point I would recommend continued conservative care. If symptoms persist, consideration for repeat aspirate will be given plan: 1. Continue current conservative care. 2. Nupur De La Rosa M.D. Department of Orthopaedic Surgery [facility] 12-16-2024 Note HNO ID: [id number] Author: YANET CEDENO RN Service: ? Author Type: Registered Nurse Type: Progress Notes Filed: 12/16/2024 13:26 Note Text: Field Examiner Management TCM Outreach PCP Update / Actionable Items N/A - No specialty updates needed Patient Source: [id number] (OON) Discharge Initial outreach: Non-Value Based Patient Outreach Summary: LMOM Patient discharged from [facility] Discharge date: No info Admitted for: No info Readmission Risk: No info Value-Based Contract: Non-Value Based Contact: Contact made with patient: No - Second unsuccessful attempt. Yanet Phelps RN December 16, 2024 1:26 PM [facility] 12-16-2024 History of Presen t illness Narrative Field Examiner Management TCM Outreach PCP Update / Actionable Items N/A - No specialty updates needed Patient Source: [id number] (OON) Discharge Initial outreach: Non-Value Based Patient Outreach Summary: LMOM Patient discharged from [facility] Discharge date: No info Admitted for: No info Readmission Risk: No info Value-Based Contract: Non-Value Based Contact: Contact made with patient: No - Second unsuccessful attempt. Yanet Phelps RN December 16, 2024 1:26 PM documented in this encounter [facility] 12-16-2024 Note Patient Outreach (AM [facility]) MAURI QUINONES ([id number]) 1955 M Date Time Provider Department 12/16/24 YANET CEDENO During your visit today, we recorded the following information about you: Yanet Cedeno RN 12/16/2024 1:26 PM Signed Field Examiner Management TCM Outreach PCP Update / Actionable Items N/A - No specialty updates needed Patient Source: [id number] (OON) Discharge Initial outreach: Non-Value Based Patient Outreach Summary: LMOM Patient discharged from [facility] Discharge date: No info Admitted for: No info Readmission Risk: No info Value-Based Contract: Non-Value Based Contact: Contact made with patient: No - Second unsuccessful attempt. Yanet Phelps RN December 16, 2024 1:26 PM Allergies As of Date: 12/16/2024 Noted Allergy Reaction LYRICA (PREGABALIN) 03/23/2017 7 - Swelling Date Reviewed: 12/05/2024 Reviewed by: Garrison Olmedo MA - Fully Assessed Prescriptions as of 12/16/2024 - traZODone (DESYREL) 50 mg tablet Take 1 tablet by mouth daily at bedtime. - benzonatate (TESSALON PERLE) 100 mg capsule Take 1 capsule by mouth three times a day as needed for up to 15 days. - ammonium lactate (LAC-HYDRIN) 12 % cream Apply to affected area as needed. - LANTUS SOLOSTAR U-100 INSULIN 100 unit/mL (3 mL) Inject 10 Units subcutaneously daily at bedtime. - hydrOXYzine HCl (ATARAX) 25 mg tablet Take 1 tablet by mouth every 6 hours as needed for itching/rash. - Tadalafil (CIALIS) 20 mg tablet Take 1 tablet by mouth once daily as needed. Do not take at same time as doxazosin - pantoprazole DR (PROTONIX) 40 mg tablet Take 1 tablet by mouth every morning. - Insulin [place], Disposable, (BD ULTRA-FINE GOLDY PEN NEEDLE) 32 gauge x Use one needle for each dose. once/day. - atorvastatin (LIPITOR) 40 mg tablet Take 1 tablet by mouth daily at bedtime. - bumetanide (BUMEX) 2 mg tablet Take 1 tablet by mouth every morning. - loratadine (CLARITIN) 10 mg tablet Take 1 tablet by mouth once daily. - aspirin, enteric coated (ASPIRIN, ENTERIC COATED) 81 mg EC tablet Take 81 mg by mouth once daily. Pt to call and clarify if needs to stop - sevelamer carbonate (RENVELA) 800 mg tablet Take 800 mg by mouth three times daily with meals. - B Complex-Vitamin C-Folic Acid (NEPHRO-SAVANAH) 0.8 mg tab Take 1 tablet by mouth every morning. - melatonin 5 mg tablet Take 10 mg by mouth at bedtime as needed for for insomnia. - acetaminophen (TYLENOL EX STR RAPID RELEASE ORAL) Take 1-2 capsules by mouth every 6 hours as needed (pain). - doxazosin (CARDURA) 4 mg tablet Take 0.5 tablets by mouth twice daily. - latanoprost (XALATAN) 0.005 % ophthalmic solution Use 1 Drop in both eyes daily at bedtime. into affected eye(s). 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] 09/24/2017 Hypertension, essential [I10] 10/23/2017 Lower leg edema [R60.0] 01/22/2018 12/02/2021 Chronic left hip pain [M25.552, G89.29] 03/04/2018 10/30/2022 Anemia of chronic renal failure, stage 3 (moder*03/05/2018 12/02/2021 Acute on chronic diastolic congestive heart zane*07/14/2018 Recurrent right pleural effusion [J90] 07/14/2018 12/02/2021 PVD (peripheral vascular disease) (HCC) [I73.9] 07/16/2018 Altered mental status [R41.82] 03/24/2019 07/05/2019 UTI (urinary tract infection) [N39.0] 03/24/2019 12/02/2021 Chronic combined systolic and diastolic CHF (co*03/24/2019 Hyperkalemia [E87.5] 03/24/2019 12/02/2021 Hypoxia [R09.02] 03/24/2019 12/02/2021 Hypoalbuminemia [E88.09] 03/24/2019 12/02/2021 GARRET (acute kidney injury) (HCC) [N17.9] 03/24/2019 12/02/2021 CKD (chronic kidney disease) stage 3, GFR 30-59*03/24/2019 04/18/2019 High phosphate levels [E83.39] 03/24/2019 12/02/2021 Hyponatremia [E87.1] 03/24/2019 12/02/2021 Delirium [R41.0] 03/29/2019 12/02/2021 Malnutrition of moderate degree (HCC) [E44.0] 04/01/2019 12/02/2021 Transition of care performed with sharing of cl*04/08/2019 04/18/2019 Chronic kidney disease, stage IV (severe) (HCC)*04/18/2019 12/02/2021 Ischemic cardiomyopathy [I25.5] 04/18/2019 Sprain of ligament of cervical spine region [S1*04/18/2019 12/02/2021 History of coronary artery bypass graft [Z95.1] 04/18/2019 History of ventricular tachycardia [Z86.79] 04/18/2019 Proliferative retinopathy of both eyes associat*06/17/2019 Flaccid neuropathic bladder, not elsewhere clas*06/04/202012/02/ (more content not included)... [facility] 12-15-2024 Note HNO ID: [id number] Author: KRISTAN FONTANEZ RN Service: ? Author Type: Registered Nurse Type: Progress Notes Filed: 12/16/2024 13:08 Note Text: Summary: [facility] Hospital Discharge Outreach -Initial -OON Field Examiner Management TCM Outreach PCP Update / Actionable Items N/A N/A - No specialty updates needed Patient Source: Fmw-hk-Ubhhzzx (OON) Discharge Initial outreach: Non-Value Based Patient Outreach Summary: NALM x 3 -I called the patient twice again today and the spouse to no avail. Patient discharged from: [facility] Discharge date: 12/13/24 Admitted for: Not listed Readmission Risk: Not listed Value-Based Contract: Non-Value Based Contact: Contact made with patient: No - Second unsuccessful attempt. Kristan Fontanez RN December 16, 2024 1:07 PM Field Examiner Management TCM Outreach PCP Update / Actionable Items N/A N/A - No specialty updates needed Patient Source: Hdi-zs-Gltyffp (OON) Discharge Initial outreach: Non-Value Based Patient Outreach Summary: NALM x2 Patient discharged from: [facility] Discharge date: 12/13/24 Admitted for: Not listed Readmission Risk: Not listed Value-Based Contract: Non-Value Based Contact: Contact made with patient: No - Next outreach attempt scheduled for the next day. Kristan Fontanez RN December 15, 2024 3:57 PM [facility] 12-15-2024 History of Presen t illness Narrative Summary: [facility] Hospital Discharge Outreach -Initial -OON Field Examiner Management TCM Outreach PCP Update / Actionable Items N/A N/A - No specialty updates needed Patient Source: Isf-ns-Rmwuyms (OON) Discharge Initial outreach: Non-Value Based Patient Outreach Summary: NALM x 3 -I called the patient twice again today and the spouse to no avail. Patient discharged from: [facility] Discharge date: 12/13/24 Admitted for: Not listed Readmission Risk: Not listed Value-Based Contract: Non-Value Based Contact: Contact made with patient: No - Second unsuccessful attempt. Kristan Fontanez RN December 16, 2024 1:07 PM Field Examiner Management TCM Outreach PCP Update / Actionable Items N/A N/A - No specialty updates needed Patient Source: Ars-ms-Yfznxna (OON) Discharge Initial outreach: Non-Value Based Patient Outreach Summary: NALM x2 Patient discharged from: [facility] Discharge date: 12/13/24 Admitted for: Not listed Readmission Risk: Not listed Value-Based Contract: Non-Value Based Contact: Contact made with patient: No - Next outreach attempt scheduled for the next day. Kristan Fontanez RN December 15, 2024 3:57 PM documented in this encounter [facility] 12-15-2024 Note Patient Outreach (AM BC) MAURI QUINONES ([id number]) 1955 M Date Time Provider Department 12/15/24 KRISTAN FONTANEZ During your visit today, we recorded the following information about you: Kristan Fontanez RN 12/16/2024 1:08 PM Signed Field Examiner Management TCM Outreach PCP Update / Actionable Items N/A N/A - No specialty updates needed Patient Source: Qqd-ev-Shljohg (OON) Discharge Initial outreach: Non-Value Based Patient Outreach Summary: NALM x 3 -I called the patient twice again today and the spouse to no avail. Patient discharged from: [facility] Discharge date: 12/13/24 Admitted for: Not listed Readmission Risk: Not listed Value-Based Contract: Non-Value Based Contact: Contact made with patient: No - Second unsuccessful attempt. Kristan Fontanez RN December 16, 2024 1:07 PM Field Examiner Management TCM Outreach PCP Update / Actionable Items N/A N/A - No specialty updates needed Patient Source: [place] (OON) Discharge Initial outreach: Non-Value Based Patient Outreach Summary: NALM x2 Patient discharged from: [facility] Discharge date: 12/13/24 Admitted for: Not listed Readmission Risk: Not listed Value-Based Contract: Non-Value Based Contact: Contact made with patient: No - Next outreach attempt scheduled for the next day. Kristan Fontanez RN December 15, 2024 3:57 PM Allergies As of Date: 12/15/2024 Noted Allergy Reaction LYRICA (PREGABALIN) 03/23/2017 7 - Swelling Date Reviewed: 12/05/2024 Reviewed by: Garrison Olmedo MA - Fully Assessed Reason for Visit: Transition Of Care [4074] Cmt: [facility] Initial Hospital Discharge-OON Prescriptions as of 12/19/2024 - ELIQUIS 5 mg tab(s) Take 1 tablet by mouth. - midodrine (PROAMITINE) 5 mg tablet Take 2 tablets by mouth. - traZODone (DESYREL) 50 mg tablet Take 1 tablet by mouth daily at bedtime. - benzonatate (TESSALON PERLE) 100 mg capsule Take 1 capsule by mouth three times a day as needed for up to 15 days. - ammonium lactate (LAC-HYDRIN) 12 % cream Apply to affected area as needed. - LANTUS SOLOSTAR U-100 INSULIN 100 unit/mL (3 mL) Inject 10 Units subcutaneously daily at bedtime. - hydrOXYzine HCl (ATARAX) 25 mg tablet Take 1 tablet by mouth every 6 hours as needed for itching/rash. - Tadalafil (CIALIS) 20 mg tablet Take 1 tablet by mouth once daily as needed. Do not take at same time as doxazosin - pantoprazole DR (PROTONIX) 40 mg tablet Take 1 tablet by mouth every morning. - Insulin [place], Disposable, (BD ULTRA-FINE GOLDY PEN NEEDLE) 32 gauge x Use one needle for each dose. once/day. - atorvastatin (LIPITOR) 40 mg tablet Take 1 tablet by mouth daily at bedtime. - bumetanide (BUMEX) 2 mg tablet Take 1 tablet by mouth every morning. - loratadine (CLARITIN) 10 mg tablet Take 1 tablet by mouth once daily. - aspirin, enteric coated (ASPIRIN, ENTERIC COATED) 81 mg EC tablet Take 81 mg by mouth once daily. Pt to call and clarify if needs to stop - sevelamer carbonate (RENVELA) 800 mg tablet Take 800 mg by mouth three times daily with meals. - B Complex-Vitamin C-Folic Acid (NEPHRO-SAVANAH) 0.8 mg tab Take 1 tablet by mouth every morning. - melatonin 5 mg tablet Take 10 mg by mouth at bedtime as needed for for insomnia. - acetaminophen (TYLENOL EX STR RAPID RELEASE ORAL) Take 1-2 capsules by mouth every 6 hours as needed (pain). - doxazosin (CARDURA) 4 mg tablet Take 0.5 tablets by mouth twice daily. - latanoprost (XALATAN) 0.005 % ophthalmic solution Use 1 Drop in both eyes daily at bedtime. into affected eye(s). 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] 09/24/2017 Hypertension, essential [I10] 10/23/2017 Lower leg edema [R60.0] 01/22/2018 12/02/2021 Chronic left hip pain [M25.552, G89.29] 03/04/2018 10/30/2022 Anemia of chronic renal failure, stage 3 (moder*03/05/2018 12/02/2021 Acute on chronic diastolic congestive heart zane*07/14/2018 Recurrent right pleural effusion [J90] 07/14/2018 12/02/2021 PVD (peripheral vascular disease) (HCC) [I73.9] 07/16/2018 Altered mental status [R41.82] 03/24/2019 07/05/2019 UTI (urinary tract infection) [N39.0] 03/24/2019 12/02/2021 Chronic combined systolic and diastolic CHF (co*03/24/2019 Hyperkalemia [E87.5] 03/24/2019 12/02/2021 Hypoxia [R09.02] 03/24/2019 12/02/2021 Hypoalbuminemia [E88.09] 03/24/2019 12/02/2021 GARRET (acute kidney injury) (HCC) [N17.9] more content not included)... [facility] 12-13-2024 Discharge summary Note Date/Time December 13, 2024 1:39pm [facility] Medical Records Department [address] [place] [id number] Discharge Summary 12/13/24 1333 MR#: [id number] Acct: [id number] Name: MAURI QUINONES Rep #:[id number] : 1955 69 From: Sukumar Hansen PCP: Dr. Rigoberto Gould MD Status:ADM I N Location: [place] [address] Providers Date of Admission: 12/11/24 Date of Discharge: 12/13/24 Primary Care Physician: Dr. Rigoberto Gould MD Consultations 12/11/24 19:30 Consult: Nephrology Routine Consulting Provider: Nata Jackson Reason for Consult: Hyperkalemia, Uremia, missed HD x 2 EMERGENT Consult: No MD Notified: Yes Date Notified: 12/12/24 Time Notified: 06:34 Method of Notification: Answering Service Reason For Visit: HF EXAC, HYPERKALEMIA Diagnosis Discharge Diagnosis (1) Paroxysmal atrial fibrillation: Status: Acute Code(s): I48.0 - Paroxysmal atrial fibrillation (2) Acute hyperkalemia: Status: Acute Code(s): E87.5 - Hyperkalemia (3) Ischemic cardiomyopathy: Status: Chronic Code(s): I25.5 - Ischemic cardiomyopathy Plan The patient is a 69 y/o M is being admitted for missing 2 sessions of hemodialysis and URI symptoms, nausea, vomiting, decreased oral intake, urine output and generalized weakness for 2 days prior to ER visit. #1. Acute Decompensated HFrEF/ischemic cardiomyopathy suspected secondary to primarily missing dialysis x 2 sessions, complicated by onset of intractable nausea and emesis possibly because of uremia: Will admit to PCU, maintain on cardiac telemetry, monitor I/Os, maintain on intake restriction, ECHO requested as none noted since 2021, IV laxis until HD available, nephrology consulted for dialysis preferentially today, continue medical therapy, magnesium level requested, place neck vanessa wraps bilateral lower extremity elevation. Given recent significant difficulties with managing patient dry weight per discussion with patient and family will request cardiology involvement. Given recent significant issues with hypotension especially with dialysis and current dialysis needs will initiate on midodrine as well. 12/13: 2D echo shows EF 25% with normal LV size moderately severe segmental systolic dysfunction, PASP 60 mmHg, moderate concentric LVH. In the past it was45%. Therefore shows progression of ischemic heart disease/heart failure. Patient not able to tolerate carvedilol and VANESSA/ARB because of low blood pressure and also ESRD. Follow-up in pulmonary office Patient blood pressure has been on lower side therefore prescription for midodrine given. Patient blood pressure has been on lower side, SBP in 100s therefore metolazone discontinued. Bumex 2 mg daily changed to days, the patient not on dialysis. Probably Bumex needs to be also discontinued in nephrology office. #2. ESRD on HD Admission BUN/Cr 124/8.04, GFR 7, prior baseline creatinine notedto be primarily 4.2-4.3 in 2021. There cannot be GARRET on the top of ESRD disease as the definition itself means end-stage renal disease 12/13: Discussed with the lottery office manager Dr. De La Rosa. Follow-up pulmonary clinic in 2 weeks. Medication changes made as mentioned above. #3. Hyperkalemia: Creatinine got better 5.3 after dialysis 12/13: Potassium 4.4 today #4. Acute hyponatremia, hypochloremia: Admission sodium 131, chloride 84. In the morning it was 130 sodium #5. Acute thrombocytopenia, unclear etiology. Platelet count was 280/295 in May 2022. Has been more than 2 years. Currently 1 28,000. Triple PCR for SARS-CoV-2, flu and RSV are negative. Respiratory panel negative #7. Atrial fibrillation, new onset, rate controlled probably transient from metabolic derangement: EKG in ED w/ atrial fibrillation, rate controlled in the ED and patient and denied history of A-fib. maintenance clerk shows A-fib 2. Patient was seen by hand sample maker. #8. CAD: Status post CABG (S/P surgery with CARTY to LAD, SVG to OM system, and SVG to PDA in March 2017 at [facility]), if able to tolerate will continue aspirin, statin, Coreg regimen, not on VANESSA/ARB with underlying renal disease as noted. #9. Diabetes mellitus type II: Hold oral home regimen, continue home insulin regimen however pending blood sugar assessments given clear liquids at this timegiven nausea and emesis bouts may consider one half dose or holding of hypoglycemia concern, maintained on every 6 hours accu checks w/ ISS. #10. PAF: Patient with EKG with atrial fibrillation rate controlled, will continue Coreg, per current list is not chronically anticoagulated. #11. GERD, history of GI bleed: Will maintain on IV PPI given intractable nausea and emesis until improving. #12. Pulmonary hypertension: Complicates presentation, per records appears he is only on tadalafil and is listed as needed but clarifying to be certain. #13. Hypertension: Continue home regimen including hydralazine, doxazosin, Coreg, PRN hydralazine. #14. Hyperlipidemia: Will continue patient on statin therapy. #15. Valvular heart disease: Remote echo noted from 04/25/2022 from outside facility with mildly dilated LV, moderate LV hypertrophy, LV systolic function mildly decreased with EF 45? percent, grade 2 LV diastolic dysfunction, RV moderately dilated, RV systolic function moderately decreased, mildly dilated LAand RA, moderate 2+ TVR, RVSP 49 mmHg consistent with moderate pulmonary hypertension, mild mitral stenosis, mild PI, mild AI, apical anterior lateral, mid anterolateral, mid inferior septal hypokinesis. Echocardiogram requested asnoted above. #16. Former tobacco use: Encourage continued tobacco cessation. #17. Allergic rhinitis: Continue patient home loratadine regimen. #18. DVT prophylaxis: Starting on Eliquis as noted. #18 CODE status: Patient HCPOA and living will are not in place but his whois present would be his medical decision-maker if necessary he notes. Discussed CODE status at length including difference between FULL code, DNR-CCA and DNR-CCstatus. Following discussions about the differences in these status, requested DNR-CCA, no intubation status. Discharge medication reconciliation done. Discharge follow-up instructions completed. Discharge process discussed with the patient and all questions wereanswered to patient's satisfaction. Follow with PCP in 1 to 2 weeks Total time spent, exact 35 minutes on discharge meds reconciliation, examination, coordination of care with nurses and ancillary staff, review of imaging and blood test and discussion with the patient on follow-up instructions. Medications at Discharge Home Medications latanoprost 0.005 % eye drops 1 drp EACH EYE QHS 06/03/18 melatonin 5 mg tablet 10 mg PO HS PRN Sleep 08/02/20 loratadine 10 mg capsule 10 mg PO DAILY PRN allergy symptoms 10/24/21 sevelamer carbonate 800 mg tablet 800 mg PO TID 05/30/22 handicap placcard #1 ea 07/07/22 hydroxyzine HCl 25 mg tablet 25 mg PO Q6 PRN itch 10/28/24 insulin glargine 100 unit/mL (3 mL) subcutaneous pen (Lantus Solostar U-100 Insulin) 10 unit subcut QPM 10/28/24 tadalafil 20 mg tablet 20 mg PO DAILY PRN sexual activity 10/28/24 atorvastatin 40 mg tablet 40 mg PO DAILY 12/11/24 benzonatate 100 mg capsule 100 mg PO TID PRN cough 12/11/24 pantoprazole 40 mg tablet,delayed release 40 mg PO BID 12/11/24 trazodone 50 mg tablet 50 mg PO QHS 12/11/24 vitamin B complex-vitamin C-folic acid 0.8 mg tablet (Dialyvite 800) 1 tab PO DAILY 12/11/24 apixaban 5 mg tablet (Eliquis) 5 mg PO BID 30 days #60 tabs 12/13/24 bumetanide 2 mg tablet 2 mg PO UD FLUID #90 tabs 12/13/24 midodrine 5 mg tablet 10 mg (2 x 5 mg) PO TIDCM 30 days #180 tabs 12/13/24 Physical Exam Narrative Seen and examined Patient was admitted with symptoms of chest congestion but no fever, cough or sore throat and generalized weakness. Patient missed 2 days of dialysis last Sunday and . Denies history of A-fib. Had CABG. He still urinates about half cup couple times a day but seems it is getting worse and worse. Physical exam General: Alert, Oriented x3, Cooperative HEENT: Atraumatic, PERRLA, EOMI, Normocephalic Oral: No Gingival or Mucosal Lesions/ Ulcerations Neck: Supple, No JVD, Negative Carotid Bruits Chest wall/Lungs: Air entry diminished in bilateral lung bases. No crepitation/rhonchi Cardiovascular: Irregular rate and rhythm, Normal S1, Normal S2, systolic murmur Abdomen: Bowel Sounds Present, Soft, Non Tender, Non-Distended : No dysuria. No renal angle tenderness. No suprapubic tenderness. On hemodialysis Extremities: Leg swelling/edema better. Capillary Refill Less than 3 Seconds Skin: No rashes, No breakdown Musculoskeletal: Bilateral TKR. Bruise on the right knee. No Tenderness to Palpation of Joints or Extremities Neurological: Cranial nerves II-XII grossly intact, DTR 2+/4. No acute focal neurological deficit. Psych/Mental Status: Flat affect Weight / BMI Weight Weight: 177 lb 4.8 oz Body Mass Index (BMI) 25.4 ABG / Lab / Microbiology Data 12/13/24 04:40 12/13/24 04:40 Laboratory: Laboratory Results - last 24 hr 12/12/24 06:40: POC Glucose 61 L 12/12/24 06:51: POC Glucose 64 L 12/12/24 13:43: POC Glucose 63 L 12/12/24 14:23: POC Glucose 71 L 12/12/24 18:13: POC Glucose 131 H 12/12/24 20:49: POC Glucose 79 12/13/24 01:31: POC Glucose 83 12/13/24 04:40: WBC 7.6, RBC 3.85 L, Hgb 12.1 L, Hct 36.6 L, MCV 95.1 H, MCH 31.4, MCHC 33.1, RDW Std Deviation 58.9 H, RDW Coeff of Yuri 17.4 H, Plt Count 146 L, MPV 9.7, Immature Gran % (Auto) 0.300, Neut % (Auto) 71.5 H, Lymph % (Auto) 10.5 L, Bucks % (Auto) 15.1 H, Eos % (Auto) 2.1, Baso % (Auto) 0.5, Absolute Neuts (auto) 5.4, Absolute Lymphs (auto) 0.80 L, Nucleated RBC % 0, Sodium 134, Potassium 4.4, Chloride 93 L, Carbon Dioxide 21.9, Anion Gap 19 H, BUN 87 H, Creatinine 6.56 H, Estim Creat Clear Calc 11.28 L, Est GFR (MDRD) Non-Af 9 L, BUN/Creatinine Ratio 13.2, Glucose 59 L, Calcium 9.4 12/13/24 06:21: POC Glucose 50 L 12/13/24 06:45: POC Glucose 173 H Microbiology: Microbiology 12/11/24 21:30 Mucosa - Nose Respiratory Panel (PCR) - Final 12/11/24 14:42 Mucosa - Nose SARS-CoV-2, Influenza & RSV (PCR) - Final Radiography Diagnostic Testing: Radiology Impression Echocardiogram 12/11/24 19:30 Interpretation Summary The left ventricular ejection fraction is 25 %. Normal LV size. Moderately severe segmental systolic dysfunction (see wall motion). Pulmonary artery systolic pressure is 60 mmHg. Moderate concentric left ventricular hypertrophy. Ordering Physician: DARWIN JI Referring Physician: RIGOBERTO GOULD Performed By: Theresa Maria RCS D/C Instructions Discharge Diet: 8 Cup Fluid Restriction and Renal Diet Weight Bearing Status: Weight bearing as tolerated Call your doctor if you observe: Fever of 101 or Higher, Coldness, Increased Pain, Numbness or Tingling, Change in Color, Inability to urinate, Inability to have a bowel movement, Shortness of breath, Dizziness, Fainting spells, Swellingin the ankles, Chest pain, Prolonged hiccupping, Increased palpitations (irregular heartbeat) and Calf discomfort DC O2, CPAP, BIPAP Needs Home O2 Discharge instructions: No When: IN 2 WEEKS Meaningful Use Info Meaningful Use Meaningful Use Diagnoses (Choose all that apply): CHF CHF VANESSA/ARB ordered at discharge?: No Reason VANESSA/ARB not ordered?: Worsening renal disease Documented LVEF (%): 25 Ischemic Stroke Statin Dosing Therapy Reference: STATIN DOSE THERAPY REFERENCE: * Patients > 75 years receive moderate or high dose statin therapy. * Patients 75 years or YOUNGER should receive HIGH intensity statin dose unless contraindicated. You will be required to document reason for non-treatment if statin daily dose does not meet guidelines. HIGH DOSE STATIN THERAPY DAILY Atorvastatin > than or = to 40 mg Rosuvastatin > than or = to 20 mg Amlodipine + Atorvastatin > than or = to 2.5/40 mg Ezetimibe + Simvastatin 10/80 mg Simvastatin 80mg Discharge Plan Admission Admit Date/Time: 12/11/24 16:45 Primary Reason for Your Visit: Acute decompensated HFrEF. Paroxysmal A-fib. Attending Provider: Sukumar Restrepo Primary Care Provider: Rigoberto Gould Consulting Providers: Nata Jackson; Mary Jo Granados Discharge Orders/Prescriptions Prescriptions: New Eliquis 5 mg Tablet 5 mg PO BID 30 Days Qty: 60 0RF midodrine 5 mg Tablet 10 mg PO TIDCM 30 Days Qty: 180 0RF Rx Instructions: Hold for SBP more than 100 mmHg Continued melatonin 5 mg tablet 10 mg PO HS PRN (Reason: Sleep) loratadine 10 mg capsule 10 mg PO DAILY PRN (Reason: allergy symptoms) sevelamer carbonate 800 mg tablet 800 mg PO TID Rx Instructions: must administer with a meal/food (DME) handicap placcard See Rx Instructions .Route .MEDSUPPLY Qty: 1 0RF Rx Instructions: Dx: Debility Exp: 5 years tadalafil 20 mg tablet 20 mg PO DAILY PRN (Reason: sexual activity) hydroxyzine HCl 25 mg tablet 25 mg PO Q6 PRN (Reason: itch) insulin glargine [Lantus Solostar U-100 Insulin] 100 unit/mL (3 mL) insulin pen 10 unit subcut QPM Patient Comments: PT HASNT BEEN NEEDED, BS LOW. latanoprost 1 DROP bottle 1 drp EACH EYE QHS Dialyvite 800 0.8 mg tablet 1 tab PO DAILY trazodone 50 mg tablet 50 mg PO QHS benzonatate 100 mg capsule 100 mg PO TID PRN (Reason: cough) atorvastatin 40 mg tablet 40 mg PO DAILY pantoprazole 40 mg tablet,delayed release (DR/EC) 40 mg PO BID Changed bumetanide 2 mg tablet 2 mg PO UD Qty: 90 3RF Rx Instructions: On the days not on dialysis, Sunday, Sunday, Sunday and Sunday Discontinued metolazone 5 mg tablet 5 mg PO DAILY aspirin [Adult Aspirin Regimen] 81 mg tablet,delayed release (DR/EC) 81 mg PO DAILY Qty: 90 3RF Referrals / Follow Up: Nata Jackson MD [Med Staff - Consulting] - Within 2 Weeks Jensen Claire MD [Med Staff - Active Staff] - Within 1 Month Rigoberto Gould MD [Primary Care Provider] - Disposition Disposition (needs filled in before D/C Order can be placed): Home, Self Care Charges/Coding Visit Charges Inpatient E&M: 66085 Disch Hosp >30min 12/13/24 1339 <Electronically signed by Sukumar Restrepo MD> Cosigner Signature (if applicable): CC: Dr. Sukumar Restrepo MD; Dr. Rigoberto Gould MD~ Signed [facility] Work Phone: [phone] Discharge summary Author Sukumar Restrepo [facility] Note Date/Time December 13, 2024 1:3 3pm [facility] Medical Records Department [address] [place] [address] Instructions for Home/Discharge Instructions 12/13/24 0935 MR#: [id number] Acct: [id number] Name: MAURI QUINONES Rep #:[id number] : 1955 69 From: Sukumar Hansen PCP: Dr. Rigoberto Gould MD Status:ADM I N Discharge Instructions Diet Discharge Diet: 8 Cup Fluid Restriction and Renal Diet DC O2, CPAP, BIPAP needs Home O2 Discharge instructions: No Dressing / Incision Discharge Activity: Return to Normal Activity Weight Bearing Status: Weight bearing as tolerated Dressing / Incision Call your doctor if you observe: Fever of 101 or Higher, Coldness, Increased Pain, Numbness or Tingling, Change in Color, Inability to urinate, Inability to have a bowel movement, Shortness of breath, Dizziness, Fainting spells, Swellingin the ankles, Chest pain, Prolonged hiccupping, Increased palpitations (irregular heartbeat) and Calf discomfort Follow Up Care When: IN 2 WEEKS Test Results: Test results from this visit will be discussed in further detail at your follow- up appointment, if applicable. Discharge Plan Admission Admit Date/Time: 12/11/24 16:45 Primary Reason for Your Visit: Acute decompensated HFrEF. Paroxysmal A-fib. Attending Provider: Sukumar Restrepo Primary Care Provider: Rigoberto Gould Consulting Providers: Nata Jackson; Mary Jo Granados Discharge Orders/Prescriptions Prescriptions: New Eliquis 5 mg Tablet 5 mg PO BID 30 Days Qty: 60 0RF midodrine 5 mg Tablet 10 mg PO TIDCM 30 Days Qty: 180 0RF Rx Instructions: Hold for SBP more than 100 mmHg Continued melatonin 5 mg tablet 10 mg PO HS PRN (Reason: Sleep) loratadine 10 mg capsule 10 mg PO DAILY PRN (Reason: allergy symptoms) sevelamer carbonate 800 mg tablet 800 mg PO TID Rx Instructions: must administer with a meal/food (DME) handicap placcard See Rx Instructions .Route .MEDSUPPLY Qty: 1 0RF Rx Instructions: Dx: Debility Exp: 5 years tadalafil 20 mg tablet 20 mg PO DAILY PRN (Reason: sexual activity) hydroxyzine HCl 25 mg tablet 25 mg PO Q6 PRN (Reason: itch) insulin glargine [Lantus Solostar U-100 Insulin] 100 unit/mL (3 mL) insulin pen 10 unit subcut QPM Patient Comments: PT HASNT BEEN NEEDED, BS LOW. latanoprost 1 DROP bottle 1 drp EACH EYE QHS Dialyvite 800 0.8 mg tablet 1 tab PO DAILY trazodone 50 mg tablet 50 mg PO QHS benzonatate 100 mg capsule 100 mg PO TID PRN (Reason: cough) atorvastatin 40 mg tablet 40 mg PO DAILY pantoprazole 40 mg tablet,delayed release (DR/EC) 40 mg PO BID Changed bumetanide 2 mg tablet 2 mg PO UD Qty: 90 3RF Rx Instructions: On the days not on dialysis, Sunday, Sunday, Sunday and Sunday Discontinued metolazone 5 mg tablet 5 mg PO DAILY aspirin [Adult Aspirin Regimen] 81 mg tablet,delayed release (DR/EC) 81 mg PO DAILY Qty: 90 3RF Referrals / Follow Up: Rigoberto Gould MD [Primary Care Provider] - Nata Jackson MD [Med Staff - Consulting] - Within 2 Weeks Jensen Claire MD [Med Staff - Active Staff] - Within 1 Month Disposition Disposition (needs filled in before D/C Order can be placed): Home, Self Care 12/13/24 1333<Electronically signed by Sukumar Restrepo MD>Sukumar Restrepo MD CC: Dr. Mary Jo Granados MD; Dr. Nata Jackson MD; Dr. Rigoberto Gould MD ~ Signed [facility] Work Phone: [phone] Discharge summary [facility] Medical Records Department [address] [place] [id number] Discharge Summary 12/13/24 1333 MR#: [id number] Acct: [id number] Name: MAURI QUINONES Rep #:[id number] : [id number] 69 From: Sukumar Hansen PCP: Dr. Rigoberto Gould MD Status:ADM I N Location: [place] [address] Providers Date of Admission: 12/11/24 Date of Discharge: 12/13/24 Primary Care Physician: Dr. Rigoberto Gould MD Consultations 12/11/24 19:30 Consult: Nephrology Routine Consulting Provider: Nata Jackson Reason for Consult: Hyperkalemia, Uremia, missed HD x 2 EMERGENT Consult: No MD Notified: Yes Date Notified: 12/12/24 Time Notified: 06:34 Method of Notification: Answering Service Reason For Visit: HF EXAC, HYPERKALEMIA Diagnosis Discharge Diagnosis (1) Paroxysmal atrial fibrillation: Status: Acute Code(s): I48.0 - Paroxysmal atrial fibrillation (2) Acute hyperkalemia: Status: Acute Code(s): E87.5 - Hyperkalemia (3) Ischemic cardiomyopathy: Status: Chronic Code(s): I25.5 - Ischemic cardiomyopathy Plan The patient is a 69 y/o M is being admitted for missing 2 sessions of hemodialysis and URI symptoms, nausea, vomiting, decreased oral intake, urine output and generalized weakness for 2 days prior toER visit. #1. Acute Decompensated HFrEF/ischemic cardiomyopathy suspected secondary to primarily missing dialysis x 2 sessions, complicated by onset of intractable nausea and emesis possibly because of uremia:Will admit to PCU, maintain on cardiac telemetry, monitor I/Os, maintain on intake restriction, ECHO requested as none noted since 2021, IV laxis until HD available, nephrology consulted for dialysispreferentially today, continue medical therapy, magnesium level requested, place neck vanessa wraps bilateral lower extremity elevation. Given recent significant difficulties with managing patient dry weight per discussion with patient and family will request cardiology involvement. Given recent significant issues with hypotension especially with dialysis and current dialysis needs will initiate on midodrine as well. 12/13: 2D echo shows EF 25% with normal LV size moderately severe segmental systolic dysfunction, PASP 60 mmHg, moderate concentric LVH. In the past it was45%. Therefore shows progression of ischemic heart disease/heart failure. Patient not able to tolerate carvedilol and VANESSA/ARB because of low blood pressure and also ESRD. Follow-up in pulmonary office Patient blood pressure has been on lower side therefore prescription for midodrine given. Patient blood pressure has been on lower side, SBP in 100s therefore metolazone discontinued. Bumex 2 mg daily changed to days, the patient not on dialysis. Probably Bumex needs to be also discontinued in nephrology office. #2. ESRD on HD Admission BUN/Cr 124/8.04, GFR 7, prior baseline creatinine notedto be primarily 4.2-4.3 in 2021. There cannot be GARRET on the top of ESRD disease as the definition itself means end-stage renal disease 12/13: Discussed with the lottery office manager Dr. De La Rosa. Follow-up pulmonary clinic in 2 weeks. Medication changes made as mentioned above. #3. Hyperkalemia: Creatinine got better 5.3 after dialysis 12/13: Potassium 4.4 today #4. Acute hyponatremia, hypochloremia: Admission sodium 131, chloride 84. In the morning it was 130sodium #5. Acute thrombocytopenia, unclear etiology. Platelet count was 280/295 in May 2022. Has been more than 2 years. Currently 1 28,000. Triple PCR for SARS-CoV-2, flu and RSV are negative. Respiratory panel negative #7. Atrial fibrillation, new onset, rate controlled probably transient from metabolic derangement: EKG in ED w/ atrial fibrillation, rate controlled in the ED and patient and denied history of A-fib. maintenance clerk shows A-fib 2. Patient was seen by hand sample maker. #8. CAD: Status post CABG (S/P surgery with CARTY to LAD, SVG to OM system, and SVG to PDA in March2017 at [facility]), if able to tolerate will continue aspirin, statin, Coreg regimen, not on VANESSA/ARB with underlying renal disease as noted. #9. Diabetes mellitus type II: Hold oral home regimen, continue home insulin regimen however pending blood sugar assessments given clear liquids at this timegiven nausea and emesis bouts may considerone half dose or holding of hypoglycemia concern, maintained on every 6 hours accu checks w/ ISS. #10. PAF: Patient with EKG with atrial fibrillation rate controlled, will continue Coreg, per current list is not chronically anticoagulated. #11. GERD, history of GI bleed: Will maintain on IV PPI given intractable nausea and emesis until improving. #12. Pulmonary hypertension: Complicates presentation, per records appears he is only on tadalafil and is listed as needed but clarifying to be certain. #13. Hypertension: Continue home regimen including hydralazine, doxazosin, Coreg, PRN hydralazine. #14. Hyperlipidemia: Will continue patient on statin therapy. #15. Valvular heart disease: Remote echo noted from 04/25/2022 from outside facility with mildly dilated LV, moderate LV hypertrophy, LV systolic function mildly decreased with EF 45? percent, grade 2LV diastolic dysfunction, RV moderately dilated, RV systolic function moderately decreased, mildly dilated LAand RA, moderate 2+ TVR, RVSP 49 mmHg consistent with moderate pulmonary hypertension, mild mitral stenosis, mild PI, mild AI, apical anterior lateral, mid anterolateral, mid inferior septalhypokinesis. Echocardiogram requested asnoted above. #16. Former tobacco use: Encourage continued tobacco cessation. #17. Allergic rhinitis: Continue patient home loratadine regimen. #18. DVT prophylaxis: Starting on Eliquis as noted. #18 CODE status: Patient HCPOA and living will are not in place but his whois present would behis medical decision-maker if necessary he notes. Discussed CODE status at length including difference between FULL code, DNR-CCA and DNR-CCstatus. Following discussions about the differences in these status, requested DNR-CCA, no intubation status. Discharge medication reconciliation done. Discharge follow-up instructions completed. Discharge process discussed with the patient and all questions wereanswered to patient's satisfaction. Follow with PCP in 1 to 2 weeks Total time spent, exact 35 minutes on discharge meds reconciliation, examination, coordination of care with nurses and ancillary staff, review of imaging and blood test and discussion with the patient on follow-up instructions. Medications at Discharge Home Medications latanoprost 0.005 % eye drops 1 drp EACH EYE QHS 06/03/18 melatonin 5 mg tablet 10 mg PO HS PRN Sleep 08/02/20 loratadine 10 mg capsule 10 mg PO DAILY PRN allergy symptoms 10/24/21 sevelamer carbonate 800 mg tablet 800 mg PO TID 05/30/22 handicap placcard #1 ea 07/07/22 hydroxyzine HCl 25 mg tablet 25 mg PO Q6 PRN itch 10/28/24 insulin glargine 100 unit/mL (3 mL) subcutaneous pen (Lantus Solostar U-100 Insulin) 10 unit subcutQPM 10/28/24 tadalafil 20 mg tablet 20 mg PO DAILY PRN sexual activity 10/28/24 atorvastatin 40 mg tablet 40 mg PO DAILY 12/11/24 benzonatate 100 mg capsule 100 mg PO TID PRN cough 12/11/24 pantoprazole 40 mg tablet,delayed release 40 mg PO BID 12/11/24 trazodone 50 mg tablet 50 mg PO QHS 12/11/24 vitamin B complex-vitamin C-folic acid 0.8 mg tablet (Dialyvite 800) 1 tab PO DAILY 12/11/24 apixaban 5 mg tablet (Eliquis) 5 mg PO BID 30 days #60 tabs 12/13/24 bumetanide 2 mg tablet 2 mg PO UD FLUID #90 tabs 12/13/24 midodrine 5 mg tablet 10 mg (2 x 5 mg) PO TIDCM 30 days #180 tabs 12/13/24 Physical Exam Narrative Seen and examined Patient was admitted with symptoms of chest congestion but no fever, cough or sore throat and generalized weakness. Patient missed 2 days of dialysis last Sunday and . Denies history of A-fib. Had CABG. He still urinates about half cup couple times a day but seems it is getting worse and worse. Physical exam General: Alert, Oriented x3, Cooperative HEENT: Atraumatic, PERRLA, EOMI, Normocephalic Oral: No Gingival or Mucosal Lesions/ Ulcerations Neck: Supple, No JVD, Negative Carotid Bruits Chest wall/Lungs: Air entry diminished in bilateral lung bases. No crepitation/rhonchi Cardiovascular: Irregular rate and rhythm, Normal S1, Normal S2, systolic murmur Abdomen: Bowel Sounds Present, Soft, Non Tender, Non-Distended : No dysuria. No renal angle tenderness. No suprapubic tenderness. On hemodialysis Extremities: Leg swelling/edema better. Capillary Refill Less than 3 Seconds Skin: No rashes, No breakdown Musculoskeletal: Bilateral TKR. Bruise on the right knee. No Tenderness to Palpation of Joints or Extremities Neurological: Cranial nerves II-XII grossly intact, DTR 2+/4. No acute focal neurological deficit. Psych/Mental Status: Flat affect Weight / BMI Weight Weight: 177 lb 4.8 oz Body Mass Index (BMI) 25.4 ABG / Lab / Microbiology Data 12/13/24 04:40 12/13/24 04:40 Laboratory: Laboratory Results - last 24 hr 12/12/24 06:40: POC Glucose 61 L 12/12/24 06:51: POC Glucose 64 L 12/12/24 13:43: POC Glucose 63 L 12/12/24 14:23: POC Glucose 71 L 12/12/24 18:13: POC Glucose 131 H 12/12/24 20:49: POC Glucose 79 12/13/24 01:31: POC Glucose 83 12/13/24 04:40: WBC 7.6, RBC 3.85 L, Hgb 12.1 L, Hct 36.6 L, MCV 95.1 H, MCH 31.4, MCHC 33.1, RDW Std Deviation 58.9 H, RDW Coeff of Yuri 17.4 H, Plt Count 146 L, MPV 9.7, Immature Gran % (Auto) 0.300, Neut % (Auto) 71.5 H, Lymph % (Auto) 10.5 L, Bucks % (Auto) 15.1 H, Eos % (Auto) 2.1, Baso % (Auto)0.5, Absolute Neuts (auto) 5.4, Absolute Lymphs (auto) 0.80 L, Nucleated RBC % 0, Sodium 134, Potassium 4.4, Chloride 93 L, Carbon Dioxide 21.9, Anion Gap 19 H, BUN 87 H, Creatinine 6.56 H, Estim Creat Clear Calc 11.28 L, Est GFR (MDRD) Non- Af 9 L, BUN/Creatinine Ratio 13.2, Glucose 59 L, Calcium 9.4 12/13/24 06:21: POC Glucose 50 L 12/13/24 06:45: POC Glucose 173 H Microbiology: Microbiology 12/11/24 21:30 Mucosa - Nose Respiratory Panel (PCR) - Final 12/11/24 14:42 Mucosa - Nose SARS-CoV-2, Influenza & RSV (PCR) - Final Radiography Diagnostic Testing: Radiology Impression Echocardiogram 12/11/24 19:30 Interpretation Summary The left ventricular ejection fraction is 25 %. Normal LV size. Moderately severe segmental systolic dysfunction (see wall motion). Pulmonary artery systolic pressure is 60 mmHg. Moderate concentric left ventricular hypertrophy. Ordering Physician: DARWIN JI Referring Physician: RIGOBERTO GOULD Performed By: Theresa Maria RCS D/C Instructions Discharge Diet: 8 Cup Fluid Restriction and Renal Diet Weight Bearing Status: Weight bearing as tolerated Call your doctor if you observe: Fever of 101 or Higher, Coldness, Increased Pain, Numbness or Tingling, Change in Color, Inability to urinate, Inability to have a bowel movement, Shortness of breath, Dizziness, Fainting spells, Swellingin the ankles, Chest pain, Prolonged hiccupping, Increased palpitations (irregular heartbeat) and Calf discomfort DC O2, CPAP, BIPAP Needs Home O2 Discharge instructions: No When: IN 2 WEEKS Meaningful Use Info Meaningful Use Meaningful Use Diagnoses (Choose all that apply): CHF CHF VANESSA/ARB ordered at discharge?: No Reason VANESSA/ARB not ordered?: Worsening renal disease Documented LVEF (%): 25 Ischemic Stroke Statin Dosing Therapy Reference: STATIN DOSE THERAPY REFERENCE: * Patients > 75 years receive moderate or high dose statin therapy. * Patients 75 years or YOUNGER should receive HIGH intensity statin dose unless contraindicated. You will be required to document reason for non-treatment if statin daily dose does not meet guidelines. HIGH DOSE STATIN THERAPY DAILY Atorvastatin > than or = to 40 mg Rosuvastatin > than or = to 20 mg Amlodipine + Atorvastatin > than or = to 2.5/40 mg Ezetimibe + Simvastatin 10/80 mg Simvastatin 80mg Discharge Plan Admission Admit Date/Time: 12/11/24 16:45 Primary Reason for Your Visit: Acute decompensated HFrEF. Paroxysmal A-fib. Attending Provider: Sukumar Restrepo Primary Care Provider: Rigoberto Gould Consulting Providers: Nata Jackson; Mary Jo Granados Discharge Orders/Prescriptions Prescriptions: New Eliquis 5 mg Tablet 5 mg PO BID 30 Days Qty: 60 0RF midodrine 5 mg Tablet 10 mg PO TIDCM 30 Days Qty: 180 0RF Rx Instructions: Hold for SBP more than 100 mmHg Continued melatonin 5 mg tablet 10 mg PO HS PRN (Reason: Sleep) loratadine 10 mg capsule 10 mg PO DAILY PRN (Reason: allergy symptoms) sevelamer carbonate 800 mg tablet 800 mg PO TID Rx Instructions: must administer with a meal/food (DME) handicap placcard See Rx Instructions .Route .MEDSUPPLY Qty: 1 0RF Rx Instructions: Dx: Debility Exp: 5 years tadalafil 20 mg tablet 20 mg PO DAILY PRN (Reason: sexual activity) hydroxyzine HCl 25 mg tablet 25 mg PO Q6 PRN (Reason: itch) insulin glargine [Lantus Solostar U-100 Insulin] 100 unit/mL (3 mL) insulin pen 10 unit subcut QPM Patient Comments: PT HASNT BEEN NEEDED, BS LOW. latanoprost 1 DROP bottle 1 drp EACH EYE QHS Dialyvite 800 0.8 mg tablet 1 tab PO DAILY trazodone 50 mg tablet 50 mg PO QHS benzonatate 100 mg capsule 100 mg PO TID PRN (Reason: cough) atorvastatin 40 mg tablet 40 mg PO DAILY pantoprazole 40 mg tablet,delayed release (DR/EC) 40 mg PO BID Changed bumetanide 2 mg tablet 2 mg PO UD Qty: 90 3RF Rx Instructions: On the days not on dialysis, Sunday, Sunday, Sunday and Sunday Discontinued metolazone 5 mg tablet 5 mg PO DAILY aspirin [Adult Aspirin Regimen] 81 mg tablet,delayed release (DR/EC) 81 mg PO DAILY Qty: 90 3RF Referrals / Follow Up: Nata Jackson MD [Med Staff - Consulting] - Within 2 Weeks Jensen Claire MD [Med Staff - Active Staff] - Within 1 Month Rigoberto Gould MD [Primary Care Provider] - Disposition Disposition (needs filled in before D/C Order can be placed): Home, Self Care Charges/Coding Visit Charges Inpatient E&M: 24727 Disch Hosp >30min 12/13/24 1339 Cosigner Signature (if applicable): CC: Dr. Sukumar Restrepo MD; Dr. Rigoberto Gould MD~ Signed [facility]04-19-2025 Discharge summary [facility] Medical Records Department [address] [place] [id number] Instructions for Home/Discharge Instructions 12/13/24 0935 MR#: [id number] Acct: [id number] Name: MAURI QUINONES Rep #:[id number] : 1955 69 From: Sukumar Hansen PCP: Dr. Rigoberto Gould MD Status:ADM I N Discharge Instructions Diet Discharge Diet: 8 Cup Fluid Restriction and Renal Diet DC O2, CPAP, BIPAP needs Home O2 Discharge instructions: No Dressing / Incision Discharge Activity: Return to Normal Activity Weight Bearing Status: Weight bearing as tolerated Dressing / Incision Call your doctor if you observe: Fever of 101 or Higher, Coldness, Increased Pain, Numbness or Tingling, Change in Color, Inability to urinate, Inability to have a bowel movement, Shortness of breath, Dizziness, Fainting spells, Swellingin the ankles, Chest pain, Prolonged hiccupping, Increased palpitations (irregular heartbeat) and Calf discomfort Follow Up Care When: IN 2 WEEKS Test Results: Test results from this visit will be discussed in further detail at your follow- up appointment, if applicable. Discharge Plan Admission Admit Date/Time: 12/11/24 16:45 Primary Reason for Your Visit: Acute decompensated HFrEF. Paroxysmal A-fib. Attending Provider: Sukumar Restrepo Primary Care Provider: Rigoberto Gould Consulting Providers: Nata Jackson; Mary Jo Granados Discharge Orders/Prescriptions Prescriptions: New Eliquis 5 mg Tablet 5 mg PO BID 30 Days Qty: 60 0RF midodrine 5 mg Tablet 10 mg PO TIDCM 30 Days Qty: 180 0RF Rx Instructions: Hold for SBP more than 100 mmHg Continued melatonin 5 mg tablet 10 mg PO HS PRN (Reason: Sleep) loratadine 10 mg capsule 10 mg PO DAILY PRN (Reason: allergy symptoms) sevelamer carbonate 800 mg tablet 800 mg PO TID Rx Instructions: must administer with a meal/food (DME) handicap placcard See Rx Instructions .Route .MEDSUPPLY Qty: 1 0RF Rx Instructions: Dx: Debility Exp: 5 years tadalafil 20 mg tablet 20 mg PO DAILY PRN (Reason: sexual activity) hydroxyzine HCl 25 mg tablet 25 mg PO Q6 PRN (Reason: itch) insulin glargine [Lantus Solostar U-100 Insulin] 100 unit/mL (3 mL) insulin pen 10 unit subcut QPM Patient Comments: PT HASNT BEEN NEEDED, BS LOW. latanoprost 1 DROP bottle 1 drp EACH EYE QHS Dialyvite 800 0.8 mg tablet 1 tab PO DAILY trazodone 50 mg tablet 50 mg PO QHS benzonatate 100 mg capsule 100 mg PO TID PRN (Reason: cough) atorvastatin 40 mg tablet 40 mg PO DAILY pantoprazole 40 mg tablet,delayed release (DR/EC) 40 mg PO BID Changed bumetanide 2 mg tablet 2 mg PO UD Qty: 90 3RF Rx Instructions: On the days not on dialysis, Sunday, Sunday, Sunday and Sunday Discontinued metolazone 5 mg tablet 5 mg PO DAILY aspirin [Adult Aspirin Regimen] 81 mg tablet,delayed release (DR/EC) 81 mg PO DAILY Qty: 90 3RF Referrals / Follow Up: Rigoberto Gould MD [Primary Care Provider] - Nata Jackson MD [Med Staff - Consulting] - Within 2 Weeks Jensen Claire MD [Med Staff - Active Staff] - Within 1 Month Disposition Disposition (needs filled in before D/C Order can be placed): Home, Self Care 12/13/24 1333Pderek Restrepo MD CC: Dr. Mary Jo Granados MD; Dr. Nata Jackson MD; Dr. Rigoberto Gould MD ~ Signed [facility]04-19-2025 [facility] Medical Records Department [address] [place] [address] Discharge Summary 12/13/24 1333 MR#: [id number] Acct: [id number] Name: MAURI QUINONES Rep #: [id number] : 1955 69 From: Sukumar Restrepo MD PCP: Dr. Rigoberto Gould MD Status:ADM IN Location: [place] [address] Providers Date of Admission: 12/11/24 Date of Discharge: 12/13/24 Primary Care Physician: Dr. Rigoberto Gould MD Consultations 12/11/24 19:30 Consult: Nephrology Routine Consulting Provider: Nata Jackson Reason for Consult: Hyperkalemia, Uremia, missed HD x 2 EMERGENT Consult: No MD Notified: Yes Date Notified: 12/12/24 Time Notified: 06:34 Method of Notification: Answering Service Reason For Visit: HF EXAC, HYPERKALEMIA Diagnosis Discharge Diagnosis (1) Paroxysmal atrial fibrillation: Status: Acute Code(s): I48.0 - Paroxysmal atrial fibrillation (2) Acute hyperkalemia: Status: Acute Code(s): E87.5 - Hyperkalemia (3) Ischemic cardiomyopathy: Status: Chronic Code(s): I25.5 - Ischemic cardiomyopathy Plan The patient is a 69 y/o M is being admitted for missing 2 sessions of hemodialysis and URI symptoms, nausea, vomiting, decreased oral intake, urine output and generalized weakness for 2 days prior to ER visit. #1. Acute Decompensated HFrEF/ischemic cardiomyopathy suspected secondary to primarily missing dialysis x 2 sessions, complicated by onset of intractable nausea and emesis possibly because of uremia: Will admit to PCU, maintain on cardiac telemetry, monitor I/Os, maintain on intake restriction, ECHO requested as none noted since 2021, IV laxis until HD available, nephrology consulted for dialysis preferentially today, continue medical therapy, magnesium level requested, place neck vanessa wraps bilateral lower extremity elevation. Given recent significant difficulties with managing patient dry weight per discussion with patient and family will request cardiology involvement. Given recent significant issues with hypotension especially with dialysis and current dialysis needs will initiate on midodrine as well. 12/13: 2D echo shows EF 25% with normal LV size moderately severe segmental systolic dysfunction, PASP 60 mmHg, moderate concentric LVH. In the past it was 45%. Therefore shows progression of ischemic heart disease/heart failure. Patient not able to tolerate carvedilol and VANESSA/ARB because of low blood pressure and also ESRD. Follow-up in pulmonary office Patient blood pressure has been on lower side therefore prescription for midodrine given. Patient blood pressure has been on lower side, SBP in 100s therefore metolazone discontinued. Bumex 2 mg daily changed to days, the patient not on dialysis. Probably Bumex needs to be also discontinued in nephrology office. #2. ESRD on HD Admission BUN/Cr 124/8.04, GFR 7, prior baseline creatinine noted to be primarily 4.2-4.3 in 2021. There cannot be GARRET on the top of ESRD disease as the definition itself means end-stage renal disease 12/13: Discussed with the lottery office manager Dr. De La Rosa. Follow-up pulmonary clinic in 2 weeks. Medication changes made as mentioned above. #3. Hyperkalemia: Creatinine got better 5.3 after dialysis 12/13: Potassium 4.4 today #4. Acute hyponatremia, hypochloremia: Admission sodium 131, chloride 84. In the morning it was 130 sodium #5. Acute thrombocytopenia, unclear etiology. Platelet count was 280/295 in May 2022. Has been more than 2 years. Currently 1 28,000. Triple PCR for SARS-CoV-2, flu and RSV are negative. Respiratory panel negative #7. Atrial fibrillation, new onset, rate controlled probably transient from metabolic derangement: EKG in ED w/ atrial fibrillation, rate controlled in the ED and patient and denied history of A-fib. maintenance clerk shows A-fib 2. Patient was seen by hand sample maker. #8. CAD: Status post CABG (S/P surgery with CARTY to LAD, SVG to OM system, and SVG to PDA in March 2017 at [facility]), if able to tolerate will continue aspirin, statin, Coreg regimen, not on VANESSA/ARB with underlying renal disease as noted. #9. Diabetes mellitus type II: Hold oral home regimen, continue home insulin regimen however pending blood sugar assessments given clear liquids at this time given nausea and emesis bouts may consider one half dose or holding of hypoglycemia concern, maintained on every 6 hours accu checks w/ ISS. #10. PAF: Patient with EKG with atrial fibrillation rate controlled, will continue Coreg, per current list is not chronically anticoagulated. #11. GERD, history of GI bleed: Will maintain on IV PPI given intractable nausea and emesis until improving. #12. Pulmonary hypertension: Complicates presentation, per records appears he is only on tadalafil and is listed as needed but clarifying to be certain. #13. Hypertension: Continue home regimen including hy (more content not included)...[facility]04-19-2025 Progress note Author Jensen Claire [facility] Note Date/Time December 13, 2024 9:5 4am [place] [facility] Medical [facility] Department [address] [place] [address] Progress Note - Cardiology 12/13/24 0944 MR#: [id number] Acct: [id number] Name: MAURI QUINONES Rep #:[id number] : 1955 69 From: Jensen Claire MD PCP: Dr. Rigoberto Gould MD Status:ADM I N Location: [place] [address] Subjective Subjective Patient reports that he completed dialysis yesterday without any hypotensive episodes. However, sometimes his recollection of the events is not always accurate. Patient denies any anginal type symptoms he denies any palpitations he reports he has only been out of the bed to go to the bathroom. His blood work does lookmarkedly improved his potassium is within normal limits after his dialysis yesterday. Objective Data Vital Signs: Vital Signs Temp Pulse Resp BP Pulse Ox O2 Del Method 97.6 F L 89 18 99/64 90 Room Air 12/13/24 04:45 12/13/24 04:45 12/13/24 04:45 12/13/24 04:45 12/13/24 09:00 12/13/24 09:00 Oxygen Delivery Method Room Air Weight: 176 lb 9.444 oz Body Mass Index (BMI) 25.2 Intake & Output: Intake and Output for Last 24 Hours 12/11/24 12/12/24 12/13/24 23:59 23:59 23:59 Intake Total 600 / 600 1285 / 1285 250 / 250 Output Total 0 / 0 1910 / 1910 0 / 0 Balance 600 / 600 -625 / -625 250 / 250 Lab / Micro Data 12/13/24 04:40 12/13/24 04:40 Labs: Laboratory Results - last 24 hr 12/12/24 06:40: POC Glucose 61 L 12/12/24 06:51: POC Glucose 64 L 12/12/24 13:43: POC Glucose 63 L 12/12/24 14:23: POC Glucose 71 L 12/12/24 18:13: POC Glucose 131 H 12/12/24 20:49: POC Glucose 79 12/13/24 01:31: POC Glucose 83 12/13/24 04:40: WBC 7.6, RBC 3.85 L, Hgb 12.1 L, Hct 36.6 L, MCV 95.1 H, MCH 31.4, MCHC 33.1, RDW Std Deviation 58.9 H, RDW Coeff of Yuri 17.4 H, Plt Count 146 L, MPV 9.7, Immature Gran % (Auto) 0.300, Neut % (Auto) 71.5 H, Lymph % (Auto) 10.5 L, Bucks % (Auto) 15.1 H, Eos % (Auto) 2.1, Baso % (Auto) 0.5, Absolute Neuts (auto) 5.4, Absolute Lymphs (auto) 0.80 L, Nucleated RBC % 0, Sodium 134, Potassium 4.4, Chloride 93 L, Carbon Dioxide 21.9, Anion Gap 19 H, BUN 87 H, Creatinine 6.56 H, Estim Creat Clear Calc 11.28 L, Est GFR (MDRD) Non-Af 9 L, BUN/Creatinine Ratio 13.2, Glucose 59 L, Calcium 9.4 12/13/24 06:21: POC Glucose 50 L 12/13/24 06:45: POC Glucose 173 H Rhythm Strip Rhythm Strip: A-fib Rate: 80 Cardiology Labs/Tests 12/13/24 04:40: WBC 7.6, RBC 3.85 L, Hgb 12.1 L, Hct 36.6 L, MCV 95.1 H, MCH 31.4, MCHC 33.1, Plt Count 146 L, MPV 9.7, Immature Gran % (Auto) 0.300, Neut % (Auto) 71.5 H, Lymph % (Auto) 10.5 L, Bucks % (Auto) 15.1 H, Eos % (Auto) 2.1, Baso % (Auto) 0.5, Absolute Neuts (auto) 5.4, Nucleated RBC % 0, Sodium 134, Potassium 4.4, Chloride 93 L, Carbon Dioxide 21.9, Anion Gap 19 H, BUN 87 H, Creatinine 6.56 H, Est GFR (MDRD) Non-Af 9 L, BUN/Creatinine Ratio 13.2, Glucose 59 L, Calcium 9.4 Rhythm: EKG: ECHO: Stress Test: Cardiac Cath: PCI: CT Surgery: Holter monitor: EPS: PPM: CXR: Chest CT Scan: Radiography Diagnostic Testing: Radiology Impression Echocardiogram 12/11/24 19:30 Interpretation Summary The left ventricular ejection fraction is 25 %. Normal LV size. Moderately severe segmental systolic dysfunction (see wall motion). Pulmonary artery systolic pressure is 60 mmHg. Moderate concentric left ventricular hypertrophy. Ordering Physician: DARWIN JI Referring Physician: RIGOBERTO GOULD Performed By: Theresa Maria RCS Physical Exam Const alert and oriented x3 HEENT normocephalic Eyes EOMs intact bilaterally Neck no JVD Chest Chest: midline sternotomy incision Resp normal respiratory effort Auscultation: crackles bilateral base and diminished lung sounds bilateral lower Cardio Rate: regular rate Rhythm: abnormal rhythm irregularly irregular Heart Sounds: S1 normal, S2 normal and murmur systolic I/ soft mid right sternal border; Negative for click or gallop Extremity no pedal edema Neuro Neuro Narrative: Alert and oriented x 3 but is hard of hearing. Psych mental status grossly normal Assessment & Plan Assessment/Plan (1) Paroxysmal atrial fibrillation: PLAN: Patient is currently tolerating oral anticoagulation with Eliquis 5 mg twice daily. Given his age of 69 despite his end-stage renal disease this is appropriate dosing recommendation. The patient's metabolic issues are improving his potassium is now normal after dialysis. He remains in atrial fibrillation. His rate is well-controlled he bart no rate modulating drugs. Midodrine has been started to try and maintain blood pressure for his dialysis. (2) Acute hyperkalemia: PLAN: Patient potassium is now within normal limits after dialysis yesterday. However he remains in atrial fibrillation with a controlled ventricular response. (3) Ischemic cardiomyopathy: PLAN: Patient's EF on his echocardiogram done yesterday was noted to be decreased to 25%. Historically had been in the 45% range. He also has moderateRV dysfunction. He has noted to have 1-2+ tricuspid regurgitation. The patientdoes not have significant right heart failure by clinical signs. Historically has been very difficult to keep him euvolemic and had his dry weight due to his hypotension with dialysis. We have stopped his Coreg as this was dropping his blood pressure despite only taking it on the days he did not take dialysis. If renal agrees I would recommend we add low-dose lisinopril 2.5 mg daily to hismedical regiment. We need to try and gently titrate guideline directed medical therapy to treat his heart failure. Alternatively for comfort as the patient is a DNR CCA, we can forego guideline directed medical therapy and try and control his symptoms and keeping as comfortable as possible with dialysis and volume control. I did briefly discussed this with the patient and his and daughter yesterday. This wouldneed to be confirmed and further discussed by the primary service and the patient's nephrology team. PLAN: Plan 1. Recommend continue Eliquis 5 mg twice daily. Should the patient develop nuisance bleeding this should be discontinued. 2. No other rate modulating medical therapy is indicated. And would avoid Coreg long-term given the patient's issues with blood pressure and his current heart rate and atrial fibrillation. 3. Would consider adding lisinopril 2.5 mg p.o. daily to treat afterload if this is felt to be acceptable from the nephrology team. 4. It does not appear the patient is any longer responding to diuretic therapy. Will defer further management of his diuretic to the nephrology team as well. 5. From a cardiovascular standpoint the patient is slowly deteriorating toward end-stage heart failure. He is palliative and has a DNR CCA in place. Charges/Coding Visit Charges Inpatient E&M: 48334 Subs Hosp L3 12/13/24 0954 <Electronically signed by Jensen Claire MD> Cosigner Signature (if applicable): CC: ~ Signed [facility] Work Phone: [phone] Progress note [facility] Medical Records Department [address] [place] [address] Progress Note - Cardiology 12/13/24943 MR#: [id number] Acct: [id number] Name: MAURI QUINONES Rep #:[id number] : 1955 69 From: Jensen Claire MD PCP: Dr. Rigoberto oGuld MD Status:ADM I N Location: [place] [address] Subjective Subjective Patient reports that he completed dialysis yesterday without any hypotensive episodes. However, sometimes his recollection of the events is not always accurate. Patient denies any anginal type symptoms he denies any palpitations he reports he has only been outof the bed to go to the bathroom. His blood work does lookmarkedly improved his potassium is withinnormal limits after his dialysis yesterday. Objective Data Vital Signs: Vital Signs Temp Pulse Resp BP Pulse Ox O2 Del Method 97.6 F L 89 18 99/64 90 Room Air 12/13/24 04:45 12/13/24 04:45 12/13/24 04:45 12/13/24 04:45 12/13/24 09:00 12/13/24 09:00 Oxygen Delivery Method Room Air Weight: 176 lb 9.444 oz Body Mass Index (BMI) 25.2 Intake & Output: Intake and Output for Last 24 Hours 12/11/24 12/12/24 12/13/24 23:59 23:59 23:59 Intake Total 600 / 600 1285 / 1285 250 / 250 Output Total 0 / 0 1910 / 1910 0 / 0 Balance 600 / 600 -625 / -625 250 / 250 Lab / Micro Data 12/13/24 04:40 12/13/24 04:40 Labs: Laboratory Results - last 24 hr 12/12/24 06:40: POC Glucose 61 L 12/12/24 06:51: POC Glucose 64 L 12/12/24 13:43: POC Glucose 63 L 12/12/24 14:23: POC Glucose 71 L 12/12/24 18:13: POC Glucose 131 H 12/12/24 20:49: POC Glucose 79 12/13/24 01:31: POC Glucose 83 12/13/24 04:40: WBC 7.6, RBC 3.85 L, Hgb 12.1 L, Hct 36.6 L, MCV 95.1 H, MCH 31.4, MCHC 33.1, RDW Std Deviation 58.9 H, RDW Coeff of Yuri 17.4 H, Plt Count 146 L, MPV 9.7, Immature Gran % (Auto) 0.300, Neut % (Auto) 71.5 H, Lymph % (Auto) 10.5 L, Bucks % (Auto) 15.1 H, Eos % (Auto) 2.1, Baso % (Auto)0.5, Absolute Neuts (auto) 5.4, Absolute Lymphs (auto) 0.80 L, Nucleated RBC % 0, Sodium 134, Potassium 4.4, Chloride 93 L, Carbon Dioxide 21.9, Anion Gap 19 H, BUN 87 H, Creatinine 6.56 H, Estim Creat Clear Calc 11.28 L, Est GFR (MDRD) Non- Af 9 L, BUN/Creatinine Ratio 13.2, Glucose 59 L, Calcium 9.4 12/13/24 06:21: POC Glucose 50 L 12/13/24 06:45: POC Glucose 173 H Rhythm Strip Rhythm Strip: A-fib Rate: 80 Cardiology Labs/Tests 12/13/24 04:40: WBC 7.6, RBC 3.85 L, Hgb 12.1 L, Hct 36.6 L, MCV 95.1 H, MCH 31.4, MCHC 33.1, Plt Count 146 L, MPV 9.7, Immature Gran % (Auto) 0.300, Neut % (Auto) 71.5 H, Lymph % (Auto) 10.5 L, Bucks% (Auto) 15.1 H, Eos % (Auto) 2.1, Baso % (Auto) 0.5, Absolute Neuts (auto) 5.4, Nucleated RBC % 0,Sodium 134, Potassium 4.4, Chloride 93 L, Carbon Dioxide 21.9, Anion Gap 19 H, BUN 87 H, Creatinine6.56 H, Est GFR (MDRD) Non-Af 9 L, BUN/Creatinine Ratio 13.2, Glucose 59 L, Calcium 9.4 Rhythm: EKG: ECHO: Stress Test: Cardiac Cath: PCI: CT Surgery: Holter monitor: EPS: PPM: CXR: Chest CT Scan: Radiography Diagnostic Testing: Radiology Impression Echocardiogram 12/11/24 19:30 Interpretation Summary The left ventricular ejection fraction is 25 %. Normal LV size. Moderately severe segmental systolic dysfunction (see wall motion). Pulmonary artery systolic pressure is 60 mmHg. Moderate concentric left ventricular hypertrophy. Ordering Physician: DARWIN JI Referring Physician: RIGOBERTO GOULD Performed By: Theresa Maria RCS Physical Exam Const alert and oriented x3 HEENT normocephalic Eyes EOMs intact bilaterally Neck no JVD Chest Chest: midline sternotomy incision Resp normal respiratory effort Auscultation: crackles bilateral base and diminished lung sounds bilateral lower Cardio Rate: regular rate Rhythm: abnormal rhythm irregularly irregular Heart Sounds: S1 normal, S2 normal and murmur systolic I/ soft mid right sternal border; Negativefor click or gallop Extremity no pedal edema Neuro Neuro Narrative: Alert and oriented x 3 but is hard of hearing. Psych mental status grossly normal Assessment & Plan Assessment/Plan (1) Paroxysmal atrial fibrillation: PLAN: Patient is currently tolerating oral anticoagulation with Eliquis 5 mg twice daily. Given hisage of 69 despite his end-stage renal disease this is appropriate dosing recommendation. The patient's metabolic issues are improving his potassium is now normal after dialysis. He remainsin atrial fibrillation. His rate is well-controlled he bart no rate modulating drugs. Midodrine hasbeen started to try and maintain blood pressure for his dialysis. (2) Acute hyperkalemia: PLAN: Patient potassium is now within normal limits after dialysis yesterday. However he remains inatrial fibrillation with a controlled ventricular response. (3) Ischemic cardiomyopathy: PLAN: Patient's EF on his echocardiogram done yesterday was noted to be decreased to 25%. Historically had been in the 45% range. He also has moderateRV dysfunction. He has noted to have 1-2+ tricuspid regurgitation. The patientdoes not have significant right heart failure by clinical signs. Historically has been very difficult to keep him euvolemic and had his dry weight due to his hypotension with dialysis. We have stopped his Coreg as this was dropping his blood pressure despite only taking it on the days he did not take dialysis. If renal agrees I would recommend we add low-dose lisinopril 2.5 mg daily to hismedical regiment. We need to try and gently titrate guideline directed medical therapy to treat his heart failure. Alternatively for comfort as the patient is a DNR CCA, we can forego guideline directed medical therapy and try and control his symptoms and keeping as comfortable as possible with dialysis and volume control. I did briefly discussed this with the patient and his and daughter yesterday. This wo uldneed to be confirmed and further discussed by the primary service and the patient's nephrology team. PLAN: Plan 1. Recommend continue Eliquis 5 mg twice daily. Should the patient develop nuisance bleeding this should be discontinued. 2. No other rate modulating medical therapy is indicated. And would avoid Coreg long-term given thepatient's issues with blood pressure and his current heart rate and atrial fibrillation. 3. Would consider adding lisinopril 2.5 mg p.o. daily to treat afterload if this is felt to be acceptable from the nephrology team. 4. It does not appear the patient is any longer responding to diuretic therapy. Will defer further management of his diuretic to the nephrology team as well. 5. From a cardiovascular standpoint the patient is slowly deteriorating toward end-stage heart failure. He is palliative and has a DNR CCA in place. Charges/Coding Visit Charges Inpatient E&M: 47392 [facility] Hosp 12/13/24 0960 Cosigner Signature (if applicable): CC: ~ Signed [facility]04-19-2025 Consult note Author Lauren husain [facility] Note Date/Time December 13, 2024 1:5 2am [facility] Medical Records Department [address] [place] [address] Consultation - Nephrology 12/12/24 0935 MR#: [id number] Acct: [id number] Name: MAURI QUINONES Rep #:[id number] : 1955 69 From: Lauren macario MD PCP: Dr. Rigoberto Gould MD Status:ADM I N Location: [place] [address] Assessment & Plan Assessment/Plan (1) End-stage renal disease on hemodialysis: PLAN: Plan Assessment/Plan: The patient is a 69-year-old male with past history of ESRD, type 2 diabetes mellitus, hypertension, CAD, ischemic cardiomyopathy with HFrEF, pulmonary hypertension, ankylosing spondylitis, GERD, and hyperlipidemia. Patient presents to the hospital on 12/11/2024 with generalized weakness, nausea and dyspnea. Patient is admitted to the hospital for treatment of decompensatedheart failure. Nephrology is following for ESRD and dialysis management. ESRD. Patient usually dialyzes at [facility] on TTS schedule. Patient had missed 2 dialysis treatments on 12/09/2024 and 12/11/2024 prior to admission. Therefore, we will dialyze patient today and again tomorrow on 12/13/2024. I saw the patient and supervised the dialysis treatment today. Patient is tolerating dialysis well. We will dialyze patient again on 12/13/2024 to get him back on TTS schedule. Volume overload/heart failure. We will remove fluid as much as BP will allow with hemodialysis today and tomorrow. HPI Consult Data Date of Consult: 12/13/24 HPI Narrative Reason for Consultation: ESRD, dialysis management HPI Narrative: The patient is a 69-year-old male with past history of ESRD, type 2 diabetes mellitus, hypertension, CAD, ischemic cardiomyopathy with HFrEF, pulmonary hypertension, ankylosing spondylitis, GERD, and hyperlipidemia. Patient presents to the hospital on 12/11/2024 with generalized weakness, nausea and dyspnea. Prior to admission, patient had missed 2 dialysis treatments as outpatient. Nephrology is asked see the patient because of ESRD and dialysis management. Patient denies current chest pain, nausea, or vomiting. Dyspnea has improved. He does have lower extremity edema which is unchanged in severity. Patient makes some urine, and there is no LUTS. [facility] Medical History C. difficile diarrhea Anemia History of GI bleed Pure hypercholesterolemia Ischemic cardiomyopathy Essential hypertension Renal insufficiency Ankylosing spondylitis CAD (coronary artery disease) Overweight (BMI 25.0-29.9) Leg edema Leg swelling Acute systolic heart failure Bradycardia Biliary pleural effusion HTN (hypertension) Ventricular tachyarrhythmia Atherosclerosis of [place] coronary artery of [place] heart without angina pectoris Pulmonary HTN Cardiomyopathy Valvular heart disease NSTEMI (non-ST elevated myocardial infarction) CHF (congestive heart failure) Abscess of right foot Diabetes mellitus with neuropathy Gout DM2 (diabetes mellitus, type 2) Home Medications ?Medication ?Instructions ?Recorded ?Last Taken ?Type latanoprost 0.005 % eye drops 1 drp EACH EYE QHS 06/0312/10/24 History melatonin 5 mg tablet 10 mg PO HS PRN Sleep 12/10/24 History loratadine 10 mg capsule 10 mg PO DAILY PRN allergy s ymptoms 10/24/21 12/10/24 History sevelamer carbonate 800 mg tablet 800 mg PO TID 12/10/24 History handicap placcard #1 ea 07/07/22 Unknown Rx aspirin 81 mg tablet,delayed 81 mg PO DAILY #90 tabs 0 04/23/24 12/10/24 Rx release (Adult Aspirin Regimen) bumetanide 2 mg tablet 2 mg PO DAILY FLUID #90 tabs 07/09/24 12/10/24 Rx hydroxyzine HCl 25 mg tablet 25 mg PO Q6 PRN itch 03/12/1912/10/24 History insulin glargine 100 unit/mL (3 10 unit subcut QPM 12/19 Unknown History mL) subcutaneous pen (Lantus Solostar U-100 Insulin) tadalafil 20 mg tablet 20 mg PO DAILY PRN sexual ac tivity 10/28/24 Unknown History atorvastatin 40 mg tablet 40 mg PO DAILY 12/11/24 04/02/18 History benzonatate 100 mg capsule 100 mg PO TID PRN cough 12/10/24 History metolazone 5 mg tablet 5 mg PO DAILY 12/11/2412/10 History pantoprazole 40 mg tablet,delayed 40 mg PO BID 5 12/10/24 History release trazodone 50 mg tablet 50 mg PO QHS 12/11/24 History vitamin B complex-vitamin C-folic 1 tab PO DAILY 12/1112/10/24 History acid 0.8 mg tablet (Dialyvite 800) Allergy/AdvReac Type Severity Reaction Status Date / Time pregabalin (From Lyrica) Allergy Angioedema Verified 12/11/24 14:17 Family History Father CAD (coronary artery disease) Mother CAD (coronary artery disease) Surgical History History of cataract extraction hx femur surgery Hx of arthroscopy History of open reduction and internal fixation (ORIF) procedure Hx of CABG (~04/12/17) Social History household members: spouse Smoking Status: Former smoker alcohol intake: never substance use type: does not use caffeine: No what type of physical activity do you participate in: none seatbelt use: always do you feel safe at home: Yes ROS ROS Narrative As per HPI, otherwise noncontributory. Physical Exam Narrative General appearance: Alert and oriented x 3, in no apparent distress. HEENT: Atraumatic, normocephalic. Mucous membrane moist. PERRLA, EOMI. Neck: Supple, there is distended JVD. Cardiovascular: Normal S1, S2. No rubs or murmurs. Lungs: Clear to auscultation bilaterally anteriorly. Abdomen: Normal bowel sounds. Soft, nontender, no guarding or rebound. Extremities: Trace lower extremity edema. No clubbing or cyanosis. Neurologic: No focal neurologic deficit. Lab / Micro Data 12/12/24 04:15 12/12/24 04:15 Labs: Laboratory Results - last 24 hr 12/11/24 14:35: WBC 9.1, RBC 4.01 L, Hgb 13.0, Hct 37.2 L, MCV 92.8, MCH 32.4 H,MCHC 34.9, RDW Std Deviation 56.2 H, RDW Coeff of Yuri 17.0 H, Plt Count 120 L, MPV 10.1, Immature Gran % (Auto) 0.400, Neut % (Auto) 77.3 H, Lymph % (Auto) 7.7L, Bucks % (Auto) 13.0 H, Eos % (Auto) 0.9, Baso % (Auto) 0.7, Absolute Neuts (auto) 7.0, Absolute Lymphs (auto) 0.70 L, Nucleated RBC % 0, Sodium 131 L, Potassium 5.9 H, Chloride 84 L, Carbon Dioxide 21.0, Anion Gap 26 H, BUN 124 H*, Creatinine 8.04 H*, Est GFR (MDRD) Non-Af 7 L, BUN/Creatinine Ratio 15.4, Glucose 88, Calcium 10.0, Phosphorus 12.7 H*, Magnesium 2.6 H 12/11/24 20:58: POC Glucose 89 12/11/24 21:34: POC Glucose 133 H 12/11/24 21:35: Sodium 130 L, Potassium 5.9 H, Chloride 85 L, Carbon Dioxide 16.7 L, Anion Gap 29 H, BUN 122 H*, Creatinine 8.21 H*, Estim Creat Clear Calc 9.02 L*, Est GFR (MDRD) Non-Af 7 L, BUN/Creatinine Ratio 14.9, Glucose 148 H, Calcium 9.8, Procalcitonin 1.39 H 12/11/24 23:45: Sodium 129 L, Potassium 5.4 H, Chloride 86 L, Carbon Dioxide 15.9 L, Anion Gap 28 H, BUN 131 H*, Creatinine 8.40 H*, Estim Creat Clear Calc 8.81 L*, Est GFR (MDRD) Non-Af 6 L, BUN/Creatinine Ratio 15.6, Glucose 93, Calcium 9.6 12/12/24 01:00: POC Glucose 75 12/12/24 04:15: WBC 8.2, RBC 3.69 L, Hgb 11.8 L, Hct 33.9 L, MCV 91.9, MCH 32.0,MCHC 34.8, RDW Std Deviation 55.1 H, RDW Coeff of Yuri 16.8 H, Plt Count 128 L, MPV 10.3, Immature Gran % (Auto) 0.500, Neut % (Auto) 75.1 H, Lymph % (Auto) 8.4L, Bucks % (Auto) 14.7 H, Eos % (Auto) 0.9, Baso % (Auto) 0.4, Absolute Neuts (auto) 6.2, Absolute Lymphs (auto) 0.69 L, Nucleated RBC % 0, Sodium 130 L, Potassium 5.3 H, Chloride 86 L, Carbon Dioxide 17.3 L, Anion Gap 27 H, BUN 124 H*, Creatinine 8.32 H*, Estim Creat Clear Calc 8.90 L*, Est GFR (MDRD) Non-Af 6 L,BUN/Creatinine Ratio 14.9, Glucose 68 L, Calcium 9.3, Total Bilirubin 0.93, AST 32, ALT 18, Alkaline Phosphatase 171 H, Total Protein 6.5, Albumin 3.6, Globulin2.9, Albumin/Globulin Ratio 1.2, Triglycerides 78, Cholesterol 149, LDL Cholesterol, Calc 97, VLDL Cholesterol 16, HDL Cholesterol 36 L, Cholesterol/HDLRatio 4.12, TSH 3.050 12/12/24 07:33: POC Glucose 114 H Micro: Microbiology 12/11/24 21:30 Mucosa - Nose Respiratory Panel (PCR) - Final 12/11/24 14:42 Mucosa - Nose SARS-CoV-2, Influenza & RSV (PCR) - Final Rhythm Strip Rhythm Strip: A-fib Rate: 77 Ectopy: PVC(s) Imaging Radiology Impression Chest X-Ray 12/11/24 15:10 IMPRESSION: CHF exacerbation. [facility] 12/13/24 0152 <Electronically signed by Lauren Mcintyre MD> Cosigner Signature (if applicable): CC: Dr. Rigoberto Gould MD~ Signed [facility] Work Phone: [phone] Consult note [facility] Medical Records Department [address] [place] [address] Consultation - Nephrology 12/12/24 0935 MR#: [id number] Acct: [id number] Name: QUINONESMAURI L Rep #:[id number] : 1955 69 From: Lauren macario MD PCP: Dr. Rigoberto Gould MD Status:ADM I N Location: [place] [address] Assessment & Plan Assessment/Plan (1) End-stage renal disease on hemodialysis: PLAN: Plan Assessment/Plan: The patient is a 69-year-old male with past history of ESRD, type 2 diabetes mellitus, hypertension, CAD, ischemic cardiomyopathy with HFrEF, pulmonary hypertension, ankylosing spondylitis, GERD, andhyperlipidemia. Patient presents to the hospital on 12/11/2024 with generalized weakness, nausea and dyspnea. Patient is admitted to the hospital for treatment of decompensatedheart failure. Nephrology is following for ESRD and dialysis management. ESRD. Patient usually dialyzes at [facility] on TTS schedule. Patient had missed 2 dialysis treatments on 12/09/2024 and 12/11/2024 prior to admission. Therefore, we will dialyze patient today and again tomorrow on 12/13/2024. I saw the patient and supervised the dialysis treatment today. Patient is tolerating dialysis well. We will dialyze patient again on 12/13/2024 to get him back on TTS schedule. Volume overload/heart failure. We will remove fluid as much as BP will allow with hemodialysis today and tomorrow. HPI Consult Data Date of Consult: 12/13/24 HPI Narrative Reason for Consultation: ESRD, dialysis management HPI Narrative: The patient is a 69-year-old male with past history of ESRD, type 2 diabetes mellitus, hypertension, CAD, ischemic cardiomyopathy with HFrEF, pulmonary hypertension, ankylosing spondylitis, GERD, andhyperlipidemia. Patient presents to the hospital on 12/11/2024 with generalized weakness, nausea and dyspnea. Prior to admission, patient had missed 2 dialysis treatments as outpatient. Nephrology is asked see the patient because of ESRD and dialysis management. Patient denies current chest pain, nausea, or vomiting. Dyspnea has improved. He does have lower extremity edema which is unchanged in severity. Patient makes some urine, and there is no [facility] Medical History C. difficile diarrhea Anemia History of GI bleed Pure hypercholesterolemia Ischemic cardiomyopathy Essential hypertension Renal insufficiency Ankylosing spondylitis CAD (coronary artery disease) Overweight (BMI 25.0-29.9) Leg edema Leg swelling Acute systolic heart failure Bradycardia Biliary pleural effusion HTN (hypertension) Ventricular tachyarrhythmia Atherosclerosis of [place] coronary artery of [place] heart without angina pectoris Pulmonary HTN Cardiomyopathy Valvular heart disease NSTEMI (non-ST elevated myocardial infarction) CHF (congestive heart failure) Abscess of right foot Diabetes mellitus with neuropathy Gout DM2 (diabetes mellitus, type 2) Home Medications ?Medication ?Instructions ?Recorded ?Last Taken ?Type latanoprost 0.005 % eye drops 1 drp EACH EYE QHS 06/0312/10/24 History melatonin 5 mg tablet 10 mg PO HS PRN Sleep 12/10/24 History loratadine 10 mg capsule 10 mg PO DAILY PRN allergy s ymptoms 10/24/21 12/10/24 History sevelamer carbonate 800 mg tablet 800 mg PO TID 12/10/24 History handicap placcard #1 ea 07/07/22 Unknown Rx aspirin 81 mg tablet,delayed 81 mg PO DAILY #90 tabs 0 04/23/24 12/10/24 Rx release (Adult Aspirin Regimen) bumetanide 2 mg tablet 2 mg PO DAILY FLUID #90 tabs 07/09/24 12/10/24 Rx hydroxyzine HCl 25 mg tablet 25 mg PO Q6 PRN itch 03/12/1912/10/24 History insulin glargine 100 unit/mL (3 10 unit subcut QPM 12/19 Unknown History mL) subcutaneous pen (Lantus Solostar U-100 Insulin) tadalafil 20 mg tablet 20 mg PO DAILY PRN sexual ac tivity 10/28/24 Unknown History atorvastatin 40 mg tablet 40 mg PO DAILY 12/11/2411/25 History benzonatate 100 mg capsule 100 mg PO TID PRN cough 12/10/24 History metolazone 5 mg tablet 5 mg PO DAILY 12/11/2412/10 History pantoprazole 40 mg tablet,delayed 40 mg PO BID 5 12/10/24 History release trazodone 50 mg tablet 50 mg PO QHS 12/11/24 History vitamin B complex-vitamin C-folic 1 tab PO DAILY 12/1112/10/24 History acid 0.8 mg tablet (Dialyvite 800) Allergy/AdvReac Type Severity Reaction Status Date / Time pregabalin (From Lyrica) Allergy Angioedema Verified 12/11/24 14:17 Family History Father CAD (coronary artery disease) Mother CAD (coronary artery disease) Surgical History History of cataract extraction hx femur surgery Hx of arthroscopy History of open reduction and internal fixation (ORIF) procedure Hx of CABG (~04/12/17) Social History household members: spouse Smoking Status: Former smoker alcohol intake: never substance use type: does not use caffeine: No what type of physical activity do you participate in: none seatbelt use: always do you feel safe at home: Yes ROS ROS Narrative As per HPI, otherwise noncontributory. Physical Exam Narrative General appearance: Alert and oriented x 3, in no apparent distress. HEENT: Atraumatic, normocephalic. Mucous membrane moist. PERRLA, EOMI. Neck: Supple, there is distended JVD. Cardiovascular: Normal S1, S2. No rubs or murmurs. Lungs: Clear to auscultation bilaterally anteriorly. Abdomen: Normal bowel sounds. Soft, nontender, no guarding or rebound. Extremities: Trace lower extremity edema. No clubbing or cyanosis. Neurologic: No focal neurologic deficit. Lab / Micro Data 12/12/24 04:15 12/12/24 04:15 Labs: Laboratory Results - last 24 hr 12/11/24 14:35: WBC 9.1, RBC 4.01 L, Hgb 13.0, Hct 37.2 L, MCV 92.8, MCH 32.4 H,MCHC 34.9, RDW Std Deviation 56.2 H, RDW Coeff of Yuri 17.0 H, Plt Count 120 L, MPV 10.1, Immature Gran % (Auto) 0.400, Neut % (Auto) 77.3 H, Lymph % (Auto) 7.7L, Bucks % (Auto) 13.0 H, Eos % (Auto) 0.9, Baso % (Auto) 0.7, Absolute Neuts (auto) 7.0, Absolute Lymphs (auto) 0.70 L, Nucleated RBC % 0, Sodium 131 L, Potassium 5.9 H, Chloride 84 L, Carbon Dioxide 21.0, Anion Gap 26 H, BUN 124 H*, Creatinine 8.04 H*, Est GFR (MDRD) Non-Af 7 L, BUN/Creatinine Ratio 15.4, Glucose 88, Calcium 10.0, Phosphorus 12.7 H*, Magnesium 2.6 H 12/11/24 20:58: POC Glucose 89 12/11/24 21:34: POC Glucose 133 H 12/11/24 21:35: Sodium 130 L, Potassium 5.9 H, Chloride 85 L, Carbon Dioxide 16.7 L, Anion Gap 29 H, BUN 122 H*, Creatinine 8.21 H*, Estim Creat Clear Calc 9.02 L*, Est GFR (MDRD) Non-Af 7 L, BUN/Creatinine Ratio 14.9, Glucose 148 H, Calcium 9.8, Procalcitonin 1.39 H 12/11/24 23:45: Sodium 129 L, Potassium 5.4 H, Chloride 86 L, Carbon Dioxide 15.9 L, Anion Gap 28 H, BUN 131 H*, Creatinine 8.40 H*, Estim Creat Clear Calc 8.81 L*, Est GFR (MDRD) Non-Af 6 L, BUN/Creatinine Ratio 15.6, Glucose 93, Calcium 9.6 12/12/24 01:00: POC Glucose 75 12/12/24 04:15: WBC 8.2, RBC 3.69 L, Hgb 11.8 L, Hct 33.9 L, MCV 91.9, MCH 32.0,MCHC 34.8, RDW Std Deviation 55.1 H, RDW Coeff of Yuri 16.8 H, Plt Count 128 L, MPV 10.3, Immature Gran % (Auto) 0.500, Neut % (Auto) 75.1 H, Lymph % (Auto) 8.4L, Bucks % (Auto) 14.7 H, Eos % (Auto) 0.9, Baso % (Auto) 0.4, Absolute Neuts (auto) 6.2, Absolute Lymphs (auto) 0.69 L, Nucleated RBC % 0, Sodium 130 L, Potassium 5.3 H, Chloride 86 L, Carbon Dioxide 17.3 L, Anion Gap 27 H, BUN 124 H*, Creatinine 8.32 H*, Estim Creat Clear Calc 8.90 L*, Est GFR (MDRD) Non-Af 6 L,BUN/Creatinine Ratio 14.9, Glucose 68 L, Calcium 9.3, Total Bilirubin 0.93, AST 32, ALT 18, Alkaline Phosphatase 171 H, Total Protein 6.5, Albumin3.6, Globulin2.9, Albumin/Globulin Ratio 1.2, Triglycerides 78, Cholesterol 149, LDL Cholesterol, Calc 97, VLDL Cholesterol 16, HDL Cholesterol 36 L, Cholesterol/HDLRatio 4.12, TSH 3.050 12/12/24 07:33: POC Glucose 114 H Micro: Microbiology 12/11/24 21:30 Mucosa - Nose Respiratory Panel (PCR) - Final 12/11/24 14:42 Mucosa - Nose SARS-CoV-2, Influenza & RSV (PCR) - Final Rhythm Strip Rhythm Strip: A-fib Rate: 77 Ectopy: PVC(s) Imaging Radiology Impression Chest X-Ray 12/11/24 15:10 IMPRESSION: CHF exacerbation. Reading Location: [facility] 12/13/24 0152 Cosigner Signature (if applicable): CC: Dr. Rigoberto Gould MD~ Signed [facility]04-18-2025 Progress note Author Sukumar Restrepo [facility] Note Date/Time December 12, 2024 3:0 2pm [facility] Medical Records Department [address] [place] [id number] Progress Note - Hospitalist 12/12/24 0759 MR#: [id number] Acct: [id number] Name: MAURI QUINONES Rep #:[id number] : 1955 69 From: Sukumar Hansen PCP: Dr. Rigoberto Gould MD Status:ADM I N Location: [place] [address] Reason for Visit Reason for Visit: Diagnoses Hypo-osmolality and hyponatremia (12/11/24) Hyperkalemia (12/11/24) Fluid overload, unspecified (12/11/24) Paroxysmal atrial fibrillation (12/11/24) End stage renal disease (12/11/24) Unspecified kidney failure (12/11/24) Personal history of other diseases of the circulatory system (12/11/24) Dependence on renal dialysis (12/11/24) Objective Data Objective Data Vital Signs: Vital Signs Temp Pulse Resp BP Pulse Ox O2 Del Method 97.7 F L 86 16 109/64 92 Room Air 12/12/24 06:35 12/12/24 06:35 12/12/24 06:35 12/12/24 06:35 12/12/24 06:35 12/12/24 06:35 Oxygen Delivery Method Room Air Weight: 175 lb 4.28 oz Body Mass Index (BMI) 25.1 Intake & Output: Intake and Output for Last 24 Hours 12/10/24 12/11/24 12/12/24 23:59 23:59 23:59 Intake Total 600 / 600 365 / 365 Output Total 0 / 0 0 / 0 Balance 600 / 600 365 / 365 Lab / Micro Data 12/12/24 04:15 12/12/24 04:15 Labs: Laboratory Results - last 24 hr 12/11/24 14:35: WBC 9.1, RBC 4.01 L, Hgb 13.0, Hct 37.2 L, MCV 92.8, MCH 32.4 H,MCHC 34.9, RDW Std Deviation 56.2 H, RDW Coeff of Yuri 17.0 H, Plt Count 120 L, MPV 10.1, Immature Gran % (Auto) 0.400, Neut % (Auto) 77.3 H, Lymph % (Auto) 7.7L, Bucks % (Auto) 13.0 H, Eos % (Auto) 0.9, Baso % (Auto) 0.7, Absolute Neuts (auto) 7.0, Absolute Lymphs (auto) 0.70 L, Nucleated RBC % 0, Sodium 131 L, Potassium 5.9 H, Chloride 84 L, Carbon Dioxide 21.0, Anion Gap 26 H, BUN 124 H*, Creatinine 8.04 H*, Est GFR (MDRD) Non-Af 7 L, BUN/Creatinine Ratio 15.4, Glucose 88, Calcium 10.0, Phosphorus 12.7 H*, Magnesium 2.6 H 12/11/24 20:58: POC Glucose 89 12/11/24 21:34: POC Glucose 133 H 12/11/24 21:35: Sodium 130 L, Potassium 5.9 H, Chloride 85 L, Carbon Dioxide 16.7 L, Anion Gap 29 H, BUN 122 H*, Creatinine 8.21 H*, Estim Creat Clear Calc 9.02 L*, Est GFR (MDRD) Non-Af 7 L, BUN/Creatinine Ratio 14.9, Glucose 148 H, Calcium 9.8, Procalcitonin 1.39 H 12/11/24 23:45: Sodium 129 L, Potassium 5.4 H, Chloride 86 L, Carbon Dioxide 15.9 L, Anion Gap 28 H, BUN 131 H*, Creatinine 8.40 H*, Estim Creat Clear Calc 8.81 L*, Est GFR (MDRD) Non-Af 6 L, BUN/Creatinine Ratio 15.6, Glucose 93, Calcium 9.6 12/12/24 01:00: POC Glucose 75 12/12/24 04:15: WBC 8.2, RBC 3.69 L, Hgb 11.8 L, Hct 33.9 L, MCV 91.9, MCH 32.0,MCHC 34.8, RDW Std Deviation 55.1 H, RDW Coeff of Yuri 16.8 H, Plt Count 128 L, MPV 10.3, Immature Gran % (Auto) 0.500, Neut % (Auto) 75.1 H, Lymph % (Auto) 8.4L, Bucks % (Auto) 14.7 H, Eos % (Auto) 0.9, Baso % (Auto) 0.4, Absolute Neuts (auto) 6.2, Absolute Lymphs (auto) 0.69 L, Nucleated RBC % 0, Sodium 130 L, Potassium 5.3 H, Chloride 86 L, Carbon Dioxide 17.3 L, Anion Gap 27 H, BUN 124 H*, Creatinine 8.32 H*, Estim Creat Clear Calc 8.90 L*, Est GFR (MDRD) Non-Af 6 L,BUN/Creatinine Ratio 14.9, Glucose 68 L, Calcium 9.3, Total Bilirubin 0.93, AST 32, ALT 18, Alkaline Phosphatase 171 H, Total Protein 6.5, Albumin 3.6, Globulin2.9, Albumin/Globulin Ratio 1.2, Triglycerides 78, Cholesterol 149, LDL Cholesterol, Calc 97, VLDL Cholesterol 16, HDL Cholesterol 36 L, Cholesterol/HDLRatio 4.12, TSH 3.050 12/12/24 07:33: POC Glucose 114 H Micro: Microbiology 12/11/24 21:30 Mucosa - Nose Respiratory Panel (PCR) - Final 12/11/24 14:42 Mucosa - Nose SARS-CoV-2, Influenza & RSV (PCR) - Final Radiography Diagnostic Testing: Radiology Impression Chest X-Ray 12/11/24 15:10 IMPRESSION: CHF exacerbation. Reading Location: [facility] Rhythm Strip Rhythm Strip: A-fib Rate: 90 Physical Exam Narrative Seen and examined Patient was admitted with symptoms of chest congestion but no fever, cough or sore throat and generalized weakness. Patient missed 2 days of dialysis last Sunday and . Denies history of A-fib. Had CABG. He still urinates about half cup couple times a day Physical exam General: Alert, Oriented x3, Cooperative HEENT: Atraumatic, PERRLA, EOMI, Normocephalic Oral: No Gingival or Mucosal Lesions/ Ulcerations Neck: Supple, No JVD, Negative Carotid Bruits Chest wall/Lungs: Air entry diminished in bilateral lung bases. No crepitation/rhonchi Cardiovascular: Irregular rate and rhythm, Normal S1, Normal S2, systolic murmur Abdomen: Bowel Sounds Present, Soft, Non Tender, Non-Distended : No dysuria. No renal angle tenderness. No suprapubic tenderness. On hemodialysis Extremities: No edema, Capillary Refill Less than 3 Seconds Skin: No rashes, No breakdown Musculoskeletal: Bilateral TKR. Bruise on the right knee. No Tenderness to Palpation of Joints or Extremities Neurological: Cranial nerves II-XII grossly intact, DTR 2+/4. No acute focal neurological deficit. Psych/Mental Status: Flat affect Assessment & Plan Assessment/Plan (1) Acute hyperkalemia: (2) Hyponatremia: (3) Fluid overload: (4) Acute uremia: PLAN: Plan The patient is a 69 y/o M is being admitted for missing 2 sessions of hemodialysis and URI symptoms, nausea, vomiting, decreased oral intake, urine output and generalized weakness for 2 days prior to ER visit. #1. Acute Decompensated HFrEF/ischemic cardiomyopathy suspected secondary to primarily missing dialysis x 2 sessions, complicated by onset of intractable nausea and emesis possibly because of uremia: Will admit to PCU, maintain on cardiac telemetry, monitor I/Os, maintain on intake restriction, ECHO requested as none noted since 2021, IV laxis until HD available, nephrology consulted for dialysis preferentially today, continue medical therapy, magnesium level requested, place neck vanessa wraps bilateral lower extremity elevation. Given recent significant difficulties with managing patient dry weight per discussion with patient and family will request cardiology involvement. Given recent significant issues with hypotension especially with dialysis and current dialysis needs will initiate on midodrine as well. #2. ESRD on HD Admission BUN/Cr 124/8.04, GFR 7, prior baseline creatinine notedto be primarily 4.2-4.3 in 2021. There cannot be GARRET on the top of ESRD disease as the definition itself means end-stage renal disease #3. Hyperkalemia: Creatinine got better 5.3 after dialysis #4. Acute hyponatremia, hypochloremia: Admission sodium 131, chloride 84. In the morning it was 130 sodium #5. Acute thrombocytopenia, unclear etiology. Platelet count was 280/295 in May 2022. Has been more than 2 years. Currently 1 28,000. Triple PCR for SARS-CoV-2, flu and RSV are negative. Respiratory panel negative #7. Atrial fibrillation, new onset, rate controlled probably transient from metabolic derangement: EKG in ED w/ atrial fibrillation, rate controlled in the ED and patient and denied history of A-fib. maintenance clerk shows A-fib 2. Patient was seen by hand sample maker. #8. CAD: Status post CABG (S/P surgery with CARTY to LAD, SVG to OM system, and SVG to PDA in March 2017 at [facility]), if able to tolerate will continue aspirin, statin, Coreg regimen, not on VANESSA/ARB with underlying renal disease as noted. #9. Diabetes mellitus type II: Hold oral home regimen, continue home insulin regimen however pending blood sugar assessments given clear liquids at this timegiven nausea and emesis bouts may consider one half dose or holding of hypoglycemia concern, maintained on every 6 hours accu checks w/ ISS. #10. PAF: Patient with EKG with atrial fibrillation rate controlled, will continue Coreg, per current list is not chronically anticoagulated. #11. GERD, history of GI bleed: Will maintain on IV PPI given intractable nausea and emesis until improving. #12. Pulmonary hypertension: Complicates presentation, per records appears he is only on tadalafil and is listed as needed but clarifying to be certain. #13. Hypertension: Continue home regimen including hydralazine, doxazosin, Coreg, PRN hydralazine. #14. Hyperlipidemia: Will continue patient on statin therapy. #15. Valvular heart disease: Remote echo noted from 04/25/2022 from outside facility with mildly dilated LV, moderate LV hypertrophy, LV systolic function mildly decreased with EF 45? percent, grade 2 LV diastolic dysfunction, RV moderately dilated, RV systolic function moderately decreased, mildly dilated LAand RA, moderate 2+ TVR, RVSP 49 mmHg consistent with moderate pulmonary hypertension, mild mitral stenosis, mild PI, mild AI, apical anterior lateral, mid anterolateral, mid inferior septal hypokinesis. Echocardiogram requested asnoted above. #16. Former tobacco use: Encourage continued tobacco cessation. #17. Allergic rhinitis: Continue patient home loratadine regimen. #18. DVT prophylaxis: Starting on Eliquis as noted. #18 CODE status: Patient HCPOA and living will are not in place but his whois present would be his medical decision-maker if necessary he notes. Discussed CODE status at length including difference between FULL code, DNR-CCA and DNR- CCstatus. Following discussions about the differences in these status, requested DNR-CCA, no intubation status. Charges/Coding Visit Charges Inpatient E&M: 16603 Subs Hosp L2 12/12/24 1502 <Electronically signed by Sukumar Restrepo MD> Cosigner Signature (if applicable): CC: ~ Signed [facility] Work Phone: [phone] 803-740804-18-2025 Progress note [facility] Medical Records Department [address] [place] [address] Progress Note - Hospitalist 12/12/24 3989 MR#: [id number] Acct: [id number] Name: MAURI QUINONES Rep #:[id number] : 1955 69 From: Sukumar Hansen PCP: Dr. Rigoberto Gould MD Status:ADM I N Location: [place] [address] Reason for Visit Reason for Visit: Diagnoses Hypo-osmolality and hyponatremia (12/11/24) Hyperkalemia (12/11/24) Fluid overload, unspecified (12/11/24) Paroxysmal atrial fibrillation (12/11/24) End stage renal disease (12/11/24) Unspecified kidney failure (12/11/24) Personal history of other diseases of the circulatory system (12/11/24) Dependence on renal dialysis (12/11/24) Objective Data Objective Data Vital Signs: Vital Signs Temp Pulse Resp BP Pulse Ox O2 Del Method 97.7 F L 86 16 109/64 92 Room Air 12/12/24 06:35 12/12/24 06:35 12/12/24 06:35 12/12/24 06:35 12/12/24 06:35 12/12/24 06:35 Oxygen Delivery Method Room Air Weight: 175 lb 4.28 oz Body Mass Index (BMI) 25.1 Intake & Output: Intake and Output for Last 24 Hours 12/10/24 12/11/24 12/12/24 23:59 23:59 23:59 Intake Total 600 / 600 365 / 365 Output Total 0 / 0 0 / 0 Balance 600 / 600 365 / 365 Lab / Micro Data 12/12/24 04:15 12/12/24 04:15 Labs: Laboratory Results - last 24 hr 12/11/24 14:35: WBC 9.1, RBC 4.01 L, Hgb 13.0, Hct 37.2 L, MCV 92.8, MCH 32.4 H,MCHC 34.9, RDW Std Deviation 56.2 H, RDW Coeff of Yuri 17.0 H, Plt Count 120 L, MPV 10.1, Immature Gran % (Auto) 0.400, Neut % (Auto) 77.3 H, Lymph % (Auto) 7.7L, Bucks % (Auto) 13.0 H, Eos % (Auto) 0.9, Baso % (Auto) 0.7, Absolute Neuts (auto) 7.0, Absolute Lymphs (auto) 0.70 L, Nucleated RBC % 0, Sodium 131 L, Potassium 5.9 H, Chloride 84 L, Carbon Dioxide 21.0, Anion Gap 26 H, BUN 124 H*, Creatinine 8.04 H*, Est GFR (MDRD) Non-Af 7 L, BUN/Creatinine Ratio 15.4, Glucose 88, Calcium 10.0, Phosphorus 12.7 H*, Magnesium 2.6 H 12/11/24 20:58: POC Glucose 89 12/11/24 21:34: POC Glucose 133 H 12/11/24 21:35: Sodium 130 L, Potassium 5.9 H, Chloride 85 L, Carbon Dioxide 16.7 L, Anion Gap 29 H, BUN 122 H*, Creatinine 8.21 H*, Estim Creat Clear Calc 9.02 L*, Est GFR (MDRD) Non-Af 7 L, BUN/Creatinine Ratio 14.9, Glucose 148 H, Calcium 9.8, Procalcitonin 1.39 H 12/11/24 23:45: Sodium 129 L, Potassium 5.4 H, Chloride 86 L, Carbon Dioxide 15.9 L, Anion Gap 28 H, BUN 131 H*, Creatinine 8.40 H*, Estim Creat Clear Calc 8.81 L*, Est GFR (MDRD) Non-Af 6 L, BUN/Creatinine Ratio 15.6, Glucose 93, Calcium 9.6 12/12/24 01:00: POC Glucose 75 12/12/24 04:15: WBC 8.2, RBC 3.69 L, Hgb 11.8 L, Hct 33.9 L, MCV 91.9, MCH 32.0,MCHC 34.8, RDW Std Deviation 55.1 H, RDW Coeff of Yuri 16.8 H, Plt Count 128 L, MPV 10.3, Immature Gran % (Auto) 0.500, Neut % (Auto) 75.1 H, Lymph % (Auto) 8.4L, Bucks % (Auto) 14.7 H, Eos % (Auto) 0.9, Baso % (Auto) 0.4, Absolute Neuts (auto) 6.2, Absolute Lymphs (auto) 0.69 L, Nucleated RBC % 0, Sodium 130 L, Potassium 5.3 H, Chloride 86 L, Carbon Dioxide 17.3 L, Anion Gap 27 H, BUN 124 H*, Creatinine 8.32 H*, Estim Creat Clear Calc 8.90 L*, Est GFR (MDRD) Non-Af 6 L,BUN/Creatinine Ratio 14.9, Glucose 68 L, Calcium 9.3, Total Bilirubin 0.93, AST 32, ALT 18, Alkaline Phosphatase 171 H, Total Protein 6.5, Albumin3.6, Globulin2.9, Albumin/Globulin Ratio 1.2, Triglycerides 78, Cholesterol 149, LDL Cholesterol, Calc 97, VLDL Cholesterol 16, HDL Cholesterol 36 L, Cholesterol/HDLRatio 4.12, TSH 3.050 12/12/24 07:33: POC Glucose 114 H Micro: Microbiology 12/11/24 21:30 Mucosa - Nose Respiratory Panel (PCR) - Final 12/11/24 14:42 Mucosa - Nose SARS-CoV-2, Influenza & RSV (PCR) - Final Radiography Diagnostic Testing: Radiology Impression Chest X-Ray 12/11/24 15:10 IMPRESSION: CHF exacerbation. Reading Location: [facility] Rhythm Strip Rhythm Strip: A-fib Rate: 90 Physical Exam Narrative Seen and examined Patient was admitted with symptoms of chest congestion but no fever, cough or sore throat and generalized weakness. Patient missed 2 days of dialysis last Sunday and . Denies history of A-fib. Had CABG. He still urinates about half cup couple times a day Physical exam General: Alert, Oriented x3, Cooperative HEENT: Atraumatic, PERRLA, EOMI, Normocephalic Oral: No Gingival or Mucosal Lesions/ Ulcerations Neck: Supple, No JVD, Negative Carotid Bruits Chest wall/Lungs: Air entry diminished in bilateral lung bases. No crepitation/rhonchi Cardiovascular: Irregular rate and rhythm, Normal S1, Normal S2, systolic murmur Abdomen: Bowel Sounds Present, Soft, Non Tender, Non-Distended : No dysuria. No renal angle tenderness. No suprapubic tenderness. On hemodialysis Extremities: No edema, Capillary Refill Less than 3 Seconds Skin: No rashes, No breakdown Musculoskeletal: Bilateral TKR. Bruise on the right knee. No Tenderness to Palpation of Joints or Extremities Neurological: Cranial nerves II-XII grossly intact, DTR 2+/4. No acute focal neurological deficit. Psych/Mental Status: Flat affect Assessment & Plan Assessment/Plan (1) Acute hyperkalemia: (2) Hyponatremia: (3) Fluid overload: (4) Acute uremia: PLAN: Plan The patient is a 69 y/o M is being admitted for missing 2 sessions of hemodialysis and URI symptoms, nausea, vomiting, decreased oral intake, urine output and generalized weakness for 2 days prior toER visit. #1. Acute Decompensated HFrEF/ischemic cardiomyopathy suspected secondary to primarily missing dialysis x 2 sessions, complicated by onset of intractable nausea and emesis possibly because of uremia:Will admit to PCU, maintain on cardiac telemetry, monitor I/Os, maintain on intake restriction, ECHO requested as none noted since 2021, IV laxis until HD available, nephrology consulted for dialysispreferentially today, continue medical therapy, magnesium level requested, place neck vanessa wraps bilateral lower extremity elevation. Given recent significant difficulties with managing patient dry weight per discussion with patient and family will request cardiology involvement. Given recent significant issues with hypotension especially with dialysis and current dialysis needs will initiate on midodrine as well. #2. ESRD on HD Admission BUN/Cr 124/8.04, GFR 7, prior baseline creatinine notedto be primarily 4.2-4.3 in 2021. There cannot be GARRET on the top of ESRD disease as the definition itself means end-stage renal disease #3. Hyperkalemia: Creatinine got better 5.3 after dialysis #4. Acute hyponatremia, hypochloremia: Admission sodium 131, chloride 84. In the morning it was 130sodium #5. Acute thrombocytopenia, unclear etiology. Platelet count was 280/295 in May 2022. Has been more than 2 years. Currently 1 28,000. Triple PCR for SARS-CoV-2, flu and RSV are negative. Respiratory panel negative #7. Atrial fibrillation, new onset, rate controlled probably transient from metabolic derangement: EKG in ED w/ atrial fibrillation, rate controlled in the ED and patient and denied history of A-fib. maintenance clerk shows A-fib 2. Patient was seen by hand sample maker. #8. CAD: Status post CABG (S/P surgery with CARTY to LAD, SVG to OM system, and SVG to PDA in March2017 at [facility]), if able to tolerate will continue aspirin, statin, Coreg regimen, not on VANESSA/ARB with underlying renal disease as noted. #9. Diabetes mellitus type II: Hold oral home regimen, continue home insulin regimen however pending blood sugar assessments given clear liquids at this timegiven nausea and emesis bouts may considerone half dose or holding of hypoglycemia concern, maintained on every 6 hours accu checks w/ ISS. #10. PAF: Patient with EKG with atrial fibrillation rate controlled, will continue Coreg, per current list is not chronically anticoagulated. #11. GERD, history of GI bleed: Will maintain on IV PPI given intractable nausea and emesis until improving. #12. Pulmonary hypertension: Complicates presentation, per records appears he is only on tadalafil and is listed as needed but clarifying to be certain. #13. Hypertension: Continue home regimen including hydralazine, doxazosin, Coreg, PRN hydralazine. #14. Hyperlipidemia: Will continue patient on statin therapy. #15. Valvular heart disease: Remote echo noted from 04/25/2022 from outside facility with mildly dilated LV, moderate LV hypertrophy, LV systolic function mildly decreased with EF 45? percent, grade 2LV diastolic dysfunction, RV moderately dilated, RV systolic function moderately decreased, mildly dilated LAand RA, moderate 2+ TVR, RVSP 49 mmHg consistent with moderate pulmonary hypertension, mild mitral stenosis, mild PI, mild AI, apical anterior lateral, mid anterolateral, mid inferior septalhypokinesis. Echocardiogram requested asnoted above. #16. Former tobacco use: Encourage continued tobacco cessation. #17. Allergic rhinitis: Continue patient home loratadine regimen. #18. DVT prophylaxis: Starting on Eliquis as noted. #18 CODE status: Patient HCPOA and living will are not in place but his whois present would behis medical decision-maker if necessary he notes. Discussed CODE status at length including difference between FULL code, DNR-CCA and DNR-CCstatus. Following discussions about the differences in these status, requested DNR-CCA, no intubation status. Charges/Coding Visit Charges Inpatient E&M: 32509 Subs Hosp L2 12/12/24 1502 Cosigner Signature (if applicable): CC: ~ Signed [facility]04-18-2025 Progress note Author Jensen Claire [facility] Note Date/Time December 12, 2024 9:1 3am [facility] Medical Records Department [address] [place] [address] Progress Note - Cardiology 12/12/24 0859 MR#: [id number] Acct: [id number] Name: MAURI QUINONES Rep #:[id number] : 1955 69 From: Jensen Claire MD PCP: Dr. Rigoberto Gould MD Status:ADM I N Location: [place] [address]- 1 Subjective Subjective Patient is resting comfortably and become position in bed. He is being prepped for his dialysis. Patient's had no urine output. His did report to me yesterday he has had very poor urine output for the last several weeks. His weight has also been increasing. The patient denies any shortness of breath this morning. And he denies any lower extremity edema. Objective Data Vital Signs: Vital Signs Temp Pulse Resp BP Pulse Ox O2 Del Method 97.7 F L 86 16 109/64 92 Room Air 12/12/24 06:35 12/12/24 06:35 12/12/24 06:35 12/12/24 06:35 12/12/24 06:35 12/12/24 08:18 Oxygen Delivery Method Room Air Weight: 175 lb 4.28 oz Body Mass Index (BMI) 25.1 Intake & Output: Intake and Output for Last 24 Hours 12/10/24 12/11/24 12/12/24 23:59 23:59 23:59 Intake Total 600 / 600 365 / 365 Output Total 0 / 0 0 / 0 Balance 600 / 600 365 / 365 Lab / Micro Data Attestation: I reviewed the patient's lab results. 12/12/24 04:15 12/12/24 04:15 Labs: Laboratory Results - last 24 hr 12/11/24 14:35: WBC 9.1, RBC 4.01 L, Hgb 13.0, Hct 37.2 L, MCV 92.8, MCH 32.4 H,MCHC 34.9, RDW Std Deviation 56.2 H, RDW Coeff of Yuri 17.0 H, Plt Count 120 L, MPV 10.1, Immature Gran % (Auto) 0.400, Neut % (Auto) 77.3 H, Lymph % (Auto) 7.7L, Bucks % (Auto) 13.0 H, Eos % (Auto) 0.9, Baso % (Auto) 0.7, Absolute Neuts (auto) 7.0, Absolute Lymphs (auto) 0.70 L, Nucleated RBC % 0, Sodium 131 L, Potassium 5.9 H, Chloride 84 L, Carbon Dioxide 21.0, Anion Gap 26 H, BUN 124 H*, Creatinine 8.04 H*, Est GFR (MDRD) Non-Af 7 L, BUN/Creatinine Ratio 15.4, Glucose 88, Calcium 10.0, Phosphorus 12.7 H*, Magnesium 2.6 H 12/11/24 20:58: POC Glucose 89 12/11/24 21:34: POC Glucose 133 H 12/11/24 21:35: Sodium 130 L, Potassium 5.9 H, Chloride 85 L, Carbon Dioxide 16.7 L, Anion Gap 29 H, BUN 122 H*, Creatinine 8.21 H*, Estim Creat Clear Calc 9.02 L*, Est GFR (MDRD) Non-Af 7 L, BUN/Creatinine Ratio 14.9, Glucose 148 H, Calcium 9.8, Procalcitonin 1.39 H 12/11/24 23:45: Sodium 129 L, Potassium 5.4 H, Chloride 86 L, Carbon Dioxide 15.9 L, Anion Gap 28 H, BUN 131 H*, Creatinine 8.40 H*, Estim Creat Clear Calc 8.81 L*, Est GFR (MDRD) Non-Af 6 L, BUN/Creatinine Ratio 15.6, Glucose 93, Calcium 9.6 12/12/24 01:00: POC Glucose 75 12/12/24 04:15: WBC 8.2, RBC 3.69 L, Hgb 11.8 L, Hct 33.9 L, MCV 91.9, MCH 32.0,MCHC 34.8, RDW Std Deviation 55.1 H, RDW Coeff of Yuri 16.8 H, Plt Count 128 L, MPV 10.3, Immature Gran % (Auto) 0.500, Neut % (Auto) 75.1 H, Lymph % (Auto) 8.4L, Bucks % (Auto) 14.7 H, Eos % (Auto) 0.9, Baso % (Auto) 0.4, Absolute Neuts (auto) 6.2, Absolute Lymphs (auto) 0.69 L, Nucleated RBC % 0, Sodium 130 L, Potassium 5.3 H, Chloride 86 L, Carbon Dioxide 17.3 L, Anion Gap 27 H, BUN 124 H*, Creatinine 8.32 H*, Estim Creat Clear Calc 8.90 L*, Est GFR (MDRD) Non-Af 6 L,BUN/Creatinine Ratio 14.9, Glucose 68 L, Calcium 9.3, Total Bilirubin 0.93, AST 32, ALT 18, Alkaline Phosphatase 171 H, Total Protein 6.5, Albumin 3.6, Globulin2.9, Albumin/Globulin Ratio 1.2, Triglycerides 78, Cholesterol 149, LDL Cholesterol, Calc 97, VLDL Cholesterol 16, HDL Cholesterol 36 L, Cholesterol/HDLRatio 4.12, TSH 3.050 12/12/24 07:33: POC Glucose 114 H Micro: Microbiology 12/11/24 21:30 Mucosa - Nose Respiratory Panel (PCR) - Final 12/11/24 14:42 Mucosa - Nose SARS-CoV-2, Influenza & RSV (PCR) - Final Rhythm Strip Rhythm Strip: A-fib Rate: 77 Ectopy: PVC(s) Cardiology Labs/Tests 12/11/24 14:35: WBC 9.1, RBC 4.01 L, Hgb 13.0, Hct 37.2 L, MCV 92.8, MCH 32.4 H,MCHC 34.9, Plt Count 120 L, MPV 10.1, Immature Gran % (Auto) 0.400, Neut % (Auto) 77.3 H, Lymph % (Auto) 7.7 L, Bucks % (Auto) 13.0 H, Eos % (Auto) 0.9, Baso % (Auto) 0.7, Absolute Neuts (auto) 7.0, Nucleated RBC % 0, Sodium 131 L, Potassium 5.9 H, Chloride 84 L, Carbon Dioxide 21.0, Anion Gap 26 H, BUN 124 H*, Creatinine 8.04 H*, Est GFR (MDRD) Non-Af 7 L, BUN/Creatinine Ratio 15.4, Glucose 88, Calcium 10.0, Phosphorus 12.7 H*, Magnesium 2.6 H 12/11/24 21:35: Sodium 130 L, Potassium 5.9 H, Chloride 85 L, Carbon Dioxide 16.7 L, Anion Gap 29 H, BUN 122 H*, Creatinine 8.21 H*, Est GFR (MDRD) Non-Af 7 L, BUN/Creatinine Ratio 14.9, Glucose 148 H, Calcium 9.8 12/11/24 23:45: Sodium 129 L, Potassium 5.4 H, Chloride 86 L, Carbon Dioxide 15.9 L, Anion Gap 28 H, BUN 131 H*, Creatinine 8.40 H*, Est GFR (MDRD) Non-Af 6 L, BUN/Creatinine Ratio 15.6, Glucose 93, Calcium 9.6 12/12/24 04:15: WBC 8.2, RBC 3.69 L, Hgb 11.8 L, Hct 33.9 L, MCV 91.9, MCH 32.0,MCHC 34.8, Plt Count 128 L, MPV 10.3, Immature Gran % (Auto) 0.500, Neut % (Auto) 75.1 H, Lymph % (Auto) 8.4 L, Bucks % (Auto) 14.7 H, Eos % (Auto) 0.9, Baso % (Auto) 0.4, Absolute Neuts (auto) 6.2, Nucleated RBC % 0, Sodium 130 L, Potassium 5.3 H, Chloride 86 L, Carbon Dioxide 17.3 L, Anion Gap 27 H, BUN 124 H*, Creatinine 8.32 H*, Est GFR (MDRD) Non-Af 6 L, BUN/Creatinine Ratio 14.9, Glucose 68 L, Calcium 9.3, Total Bilirubin 0.93, Triglycerides 78, Cholesterol 149, VLDL Cholesterol 16, HDL Cholesterol 36 L, Cholesterol/HDL Ratio 4.12 Rhythm: EKG: ECHO: Stress Test: Cardiac Cath: PCI: CT Surgery: Holter monitor: EPS: PPM: CXR: Chest CT Scan: Radiography Diagnostic Testing: Radiology Impression Chest X-Ray 12/11/24 15:10 IMPRESSION: CHF exacerbation. Reading Location: [facility] Physical Exam Const alert and oriented x3 HEENT normocephalic Eyes EOMs intact bilaterally Chest Chest: midline sternotomy incision Resp normal respiratory effort Auscultation: diminished lung sounds bilateral (Posteriorly) Cardio Rate: regular rate Rhythm: abnormal rhythm irregularly irregular Heart Sounds: S1 normal, S2 normal and murmur systolic II/ soft mid right sternal border; Negative for click or gallop Extremity no pedal edema Neuro Neuro Narrative: Alert and oriented x 3. Psych mental status grossly normal Assessment & Plan Assessment/Plan (1) Paroxysmal atrial fibrillation: PLAN: Patient's rate is well-controlled on no rate modulating drugs. He does have hyperkalemia and uremia. This is probably the etiology of his onset of atrial fibrillation which is new for him. Blood pressure is tolerating it at this time. He is on Eliquis 5 mg twice daily which is the appropriate dose given his weight and age as well as his end-stage renal disease. The duration of atrial fibrillation is unknown he apparently started feeling bad5 days prior to admission. Therefore attempted direct-current cardioversion would not be indicated unless he became hemodynamically unstable at this time. Would prefer to reevaluate him after his metabolic status is corrected as I suspect this is the etiology of his atrial fibrillation. If he maintains atrialfibrillation despite routine hemodialysis and normal electrolyte states that we would have to reconsider elective direct-current cardioversion at a later date. This would preferably be after 4 to 6 weeks of oral anticoagulation therapy. The patient is a DNR CCA. I reaffirmed that with him this morning. (2) Acute hyperkalemia: PLAN: Patient is being dialyzed this morning. Patient is also uremic by chemical evaluation. He is undergoing dialysis at this point in time. (3) Ischemic cardiomyopathy: PLAN: The last echocardiogram we have is from [facility] in 2021 and at that time his EF was 45%. I would recommend that we reevaluate his LV function with an echocardiogram during this admission. (4) Hx of CABG: PLAN: In 2016 the patient received a CARTY to the LAD a vein graft to the distal right coronary and a vein graft to the OM branch of the circumflex. He denies any anginal type symptoms. PLAN: Plan 1. Will await correction of his metabolic derangement before pursuing any further definitive therapy for his atrial fibrillation. 2. Continue Eliquis 5 mg twice daily. 3. Will follow-up with further recommendations after the echocardiogram is available. Charges/Coding Visit Charges Inpatient E&M: 28538 Subs Hosp L2 12/12/24 0913 <Electronically signed by Jensen Claire MD> Cosigner Signature (if applicable): CC: ~ Signed [facility] Work Phone: [phone] Progress note [facility] Medical Records Department [address] [place] [address] Progress Note - Cardiology 12/12/24 0859 MR#: [id number] Acct: [id number] Name: MAURI QUINONES Rep #:[id number] : 1955 69 From: Jensen Claire MD PCP: Dr. Rigoberto Gould MD Status:ADM I N Location: [place] [address] Subjective Subjective Patient is resting comfortably and become position in bed. He is being prepped for his dialysis. Patient's had no urine output. His did report to me yesterday he has had very poor urine output for the last several weeks. His weight has also been increasing. The patient denies any shortness of breath this morning. And he denies any lower extremity edema. Objective Data Vital Signs: Vital Signs Temp Pulse Resp BP Pulse Ox O2 Del Method 97.7 F L 86 16 109/64 92 Room Air 12/12/24 06:35 12/12/24 06:35 12/12/24 06:35 12/12/24 06:35 12/12/24 06:35 12/12/24 08:18 Oxygen Delivery Method Room Air Weight: 175 lb 4.28 oz Body Mass Index (BMI) 25.1 Intake & Output: Intake and Output for Last 24 Hours 12/10/24 12/11/24 12/12/24 23:59 23:59 23:59 Intake Total 600 / 600 365 / 365 Output Total 0 / 0 0 / 0 Balance 600 / 600 365 / 365 Lab / Micro Data Attestation: I reviewed the patient's lab results. 12/12/24 04:15 12/12/24 04:15 Labs: Laboratory Results - last 24 hr 12/11/24 14:35: WBC 9.1, RBC 4.01 L, Hgb 13.0, Hct 37.2 L, MCV 92.8, MCH 32.4 H,MCHC 34.9, RDW Std Deviation 56.2 H, RDW Coeff of Yuri 17.0 H, Plt Count 120 L, MPV 10.1, Immature Gran % (Auto) 0.400, Neut % (Auto) 77.3 H, Lymph % (Auto) 7.7L, Bucks % (Auto) 13.0 H, Eos % (Auto) 0.9, Baso % (Auto) 0.7, Absolute Neuts (auto) 7.0, Absolute Lymphs (auto) 0.70 L, Nucleated RBC % 0, Sodium 131 L, Potassium 5.9 H, Chloride 84 L, Carbon Dioxide 21.0, Anion Gap 26 H, BUN 124 H*, Creatinine 8.04 H*, Est GFR (MDRD) Non-Af 7 L, BUN/Creatinine Ratio 15.4, Glucose 88, Calcium 10.0, Phosphorus 12.7 H*, Magnesium 2.6 H 12/11/24 20:58: POC Glucose 89 12/11/24 21:34: POC Glucose 133 H 12/11/24 21:35: Sodium 130 L, Potassium 5.9 H, Chloride 85 L, Carbon Dioxide 16.7 L, Anion Gap 29 H, BUN 122 H*, Creatinine 8.21 H*, Estim Creat Clear Calc 9.02 L*, Est GFR (MDRD) Non-Af 7 L, BUN/Creatinine Ratio 14.9, Glucose 148 H, Calcium 9.8, Procalcitonin 1.39 H 12/11/24 23:45: Sodium 129 L, Potassium 5.4 H, Chloride 86 L, Carbon Dioxide 15.9 L, Anion Gap 28 H, BUN 131 H*, Creatinine 8.40 H*, Estim Creat Clear Calc 8.81 L*, Est GFR (MDRD) Non-Af 6 L, BUN/Creatinine Ratio 15.6, Glucose 93, Calcium 9.6 12/12/24 01:00: POC Glucose 75 12/12/24 04:15: WBC 8.2, RBC 3.69 L, Hgb 11.8 L, Hct 33.9 L, MCV 91.9, MCH 32.0,MCHC 34.8, RDW Std Deviation 55.1 H, RDW Coeff of Yuri 16.8 H, Plt Count 128 L, MPV 10.3, Immature Gran % (Auto) 0.500, Neut % (Auto) 75.1 H, Lymph % (Auto) 8.4L, Bucks % (Auto) 14.7 H, Eos % (Auto) 0.9, Baso % (Auto) 0.4, Absolute Neuts (auto) 6.2, Absolute Lymphs (auto) 0.69 L, Nucleated RBC % 0, Sodium 130 L, Potassium 5.3 H, Chloride 86 L, Carbon Dioxide 17.3 L, Anion Gap 27 H, BUN 124 H*, Creatinine 8.32 H*, Estim Creat Clear Calc 8.90 L*, Est GFR (MDRD) Non-Af 6 L,BUN/Creatinine Ratio 14.9, Glucose 68 L, Calcium 9.3, Total Bilirubin 0.93, AST 32, ALT 18, Alkaline Phosphatase 171 H, Total Protein 6.5, Albumin3.6, Globulin2.9, Albumin/Globulin Ratio 1.2, Triglycerides 78, Cholesterol 149, LDL Cholesterol, Calc 97, VLDL Cholesterol 16, HDL Cholesterol 36 L, Cholesterol/HDLRatio 4.12, TSH 3.050 12/12/24 07:33: POC Glucose 114 H Micro: Microbiology 12/11/24 21:30 Mucosa - Nose Respiratory Panel (PCR) - Final 12/11/24 14:42 Mucosa - Nose SARS-CoV-2, Influenza & RSV (PCR) - Final Rhythm Strip Rhythm Strip: A-fib Rate: 77 Ectopy: PVC(s) Cardiology Labs/Tests 12/11/24 14:35: WBC 9.1, RBC 4.01 L, Hgb 13.0, Hct 37.2 L, MCV 92.8, MCH 32.4 H,MCHC 34.9, Plt Count 120 L, MPV 10.1, Immature Gran % (Auto) 0.400, Neut % (Auto) 77.3 H, Lymph % (Auto) 7.7 L, Bucks % (Auto) 13.0 H, Eos % (Auto) 0.9, Baso % (Auto) 0.7, Absolute Neuts (auto) 7.0, Nucleated RBC % 0, Sodium 131 L, Potassium 5.9 H, Chloride 84 L, Carbon Dioxide 21.0, Anion Gap 26 H, BUN 124 H*, Creatinine 8.04 H*, Est GFR (MDRD) Non-Af 7 L, BUN/Creatinine Ratio 15.4, Glucose 88, Calcium 10.0, Phosphorus 12.7 H*, Magnesium 2.6 H 12/11/24 21:35: Sodium 130 L, Potassium 5.9 H, Chloride 85 L, Carbon Dioxide 16.7 L, Anion Gap 29 H, BUN 122 H*, Creatinine 8.21 H*, Est GFR (MDRD) Non-Af 7 L, BUN/Creatinine Ratio 14.9, Glucose 148 H, Calcium 9.8 12/11/24 23:45: Sodium 129 L, Potassium 5.4 H, Chloride 86 L, Carbon Dioxide 15.9 L, Anion Gap 28 H, BUN 131 H*, Creatinine 8.40 H*, Est GFR (MDRD) Non-Af 6 L, BUN/Creatinine Ratio 15.6, Glucose 93, Calcium 9.6 12/12/24 04:15: WBC 8.2, RBC 3.69 L, Hgb 11.8 L, Hct 33.9 L, MCV 91.9, MCH 32.0,MCHC 34.8, Plt Count 128 L, MPV 10.3, Immature Gran % (Auto) 0.500, Neut % (Auto) 75.1 H, Lymph % (Auto) 8.4 L, Bucks % (Auto) 14.7 H, Eos % (Auto) 0.9, Baso % (Auto) 0.4, Absolute Neuts (auto) 6.2, Nucleated RBC % 0, Sodium 130 L, Potassium 5.3 H, Chloride 86 L, Carbon Dioxide 17.3 L, Anion Gap 27 H, BUN 124 H*, Creatinine 8.32 H*, Est GFR (MDRD) Non-Af 6 L, BUN/Creatinine Ratio 14.9, Glucose 68 L, Calcium 9.3, Total Bilirubin 0.93, Triglycerides 78, Cholesterol 149, VLDL Cholesterol 16, HDL Cholesterol 36 L, Cholesterol/HDL Ratio 4.12 Rhythm: EKG: ECHO: Stress Test: Cardiac Cath: PCI: CT Surgery: Holter monitor: EPS: PPM: CXR: Chest CT Scan: Radiography Diagnostic Testing: Radiology Impression Chest X-Ray 12/11/24 15:10 IMPRESSION: CHF exacerbation. Reading Location: [facility] Physical Exam Const alert and oriented x3 HEENT normocephalic Eyes EOMs intact bilaterally Chest Chest: midline sternotomy incision Resp normal respiratory effort Auscultation: diminished lung sounds bilateral (Posteriorly) Cardio Rate: regular rate Rhythm: abnormal rhythm irregularly irregular Heart Sounds: S1 normal, S2 normal and murmur systolic II/ soft mid right sternal border; Negative for click or gallop Extremity no pedal edema Neuro Neuro Narrative: Alert and oriented x 3. Psych mental status grossly normal Assessment & Plan Assessment/Plan (1) Paroxysmal atrial fibrillation: PLAN: Patient's rate is well-controlled on no rate modulating drugs. He does have hyperkalemia and uremia. This is probably the etiology of his onset of atrial fibrillation which is new for him. Blood pressure is tolerating it at this time. He is on Eliquis 5 mg twice daily which is the appropriatedose given his weight and age as well as his end-stage renal disease. The duration of atrial fibrillation is unknown he apparently started feeling bad5 days prior to admission. Therefore attempted direct-current cardioversion would not be indicated unless he became hemodynamically unstable at this time. Would prefer to reevaluate him after his metabolic status is corrected as I suspect this is the etiology of his atrial fibrillation. If he maintains atrialfibrillation despite routine hemodialysis and normal electrolyte states that we would have to reconsider elective direct-current cardioversion at a later date. This would preferably be after 4 to 6 weeks of oral anticoagulation therapy. The patient is a DNR CCA. I reaffirmed that with him this morning. (2) Acute hyperkalemia: PLAN: Patient is being dialyzed this morning. Patient is also uremic by chemical evaluation. He is undergoing dialysis at this point in time. (3) Ischemic cardiomyopathy: PLAN: The last echocardiogram we have is from [facility] in 2021 and at that time his EF was 45%. I would recommend that we reevaluate his LV function with an echocardiogram during this admission. (4) Hx of CABG: PLAN: In 2016 the patient received a CARTY to the LAD a vein graft to the distal right coronary and a vein graft to the OM branch of the circumflex. He denies any anginal type symptoms. PLAN: Plan 1. Will await correction of his metabolic derangement before pursuing any further definitive therapy for his atrial fibrillation. 2. Continue Eliquis 5 mg twice daily. 3. Will follow-up with further recommendations after the echocardiogram is available. Charges/Coding Visit Charges Inpatient E&M: 33162 Subs Hosp L2 12/12/24 0956 Cosigner Signature (if applicable): CC: ~ Signed [facility]04-17-2025 Consult note Author Jensen Claire [facility] Note Date/Time December 11, 2024 6:1 5pm [facility] Medical Records Department [address] [place] [address] Consultation - Cardiology 12/11/24 6886 MR#: [id number] Acct: [id number] Name: MAURI QUINONES Rep #:[id number] : 1955 69 From: Jensen Claire MD PCP: Dr. Rigoberto Gould MD Status:REG E R Location: ED Assessment & Plan Assessment/Plan (1) Acute hyperkalemia: PLAN: Patient potassium is 5.9. This is up significant from his baseline. He has missed 2 dialysis appointments. Nephrology has been consulted for urgent dialysis. (2) End-stage renal disease on hemodialysis: PLAN: Patient has been on dialysis and has had problems with hypotension during dialysis. He is now off of all antihypertensive medical therapy. Will defer tonephrology for further evaluation and treatment of his end-stage renal disease. (3) History of ischemic cardiomyopathy: PLAN: Patient carries a history of an ischemic cardiomyopathy with an ejection fraction of 45% last evaluated on an echo in 2021. An echo will be repeated on this admission and appropriate medical therapy be recommended pending the outcome of that echocardiogram. We do have significant issues in trying to treat his him with guideline directed medical therapy given his hypotension with dialysis. Historically we have treated him on his off daysand not treated him until after dialysis on the days he received dialysis. Will discuss with nephrology the possibility of adding an SGLT2 inhibitor for treatment of his heart failure. (4) Acute uremia: PLAN: Patient's BUN and creatinine are markedly elevated. He does appear to be mentating normally and alert and oriented x 3. He is able to carry on a normal conversation. Treatment and institution of dialysis to be deferred to nephrology. (5) Paroxysmal atrial fibrillation: PLAN: This is the first time I can find documented he is been in atrial fibrillation. His rate is well-controlled on no rate modulating medical therapy. He does have a remote history of a GI bleed and that his hemoglobin onadmission was 13. I recommend we trial placing him on Eliquis 5 mg twice daily. This is already been instituted in the emergency department. We should stop his aspirin. PLAN: Plan 1. Obtain 2D echocardiogram. 2. Once echo is available we will discuss with the primary service and nephrology about best options for treatment. 3. Would not feel that he will be reverting into sinus rhythm until after his metabolic derangements are corrected. 4. Recommend trialing him on Eliquis 5 mg twice daily. He does have a history of remote GI bleed his hemoglobin is 13 on today's lab work. 5. Currently his rate is well-controlled on no rate modulating drugs. HPI Consult Data Date of Consult: 12/11/24 HPI Narrative Reason for Consultation: New onset atrial fibrillation. HPI Narrative: MAURI QUINONES, is a 69 M who presents with a 5 to 6-day history of a URI typesymptom he denies any fevers or chills but reports that he has been sick and coughing with a nonproductive cough. He missed his last 2 dialysis sessions oneof the second 1 was today. He has noted some increasing dyspnea on exertion andsignificant drop in his appetite. He gets nauseated with any type of attempted oral intake. The patient is diabetic and possibly has gastroparesis. He has missed 2 dialysis sessions in the past without getting sick like this. The patient's EKG now shows that he is in atrial fibrillation I cannot find an old EKG that demonstrates atrial fibs. His other EKGs have shown sinus rhythm. When he was last evaluated in our office October 2024 he was in a regular rhythm but I did not do an ECG. Currently the patient is resting comfortably but his BUN and creatinine are markedly elevated as his potassium. And he is approximately 20 pounds above hisroutine dry weight. The patient does note that he has had some lower extremity edema but he intermittently has this in the past as well. The dialysis team and his dialysis center have been attempting to diurese him byswitching him to torsemide and metolazone. But he has not had any significant urine output by his report since that change was made last week. Historically the patient has had trouble with dialysis due to hypotension and he has had to hold his Coreg the night before. Once he does this is dialysis has been able artie completed in 3 hours. Most recently his Coreg has been discontinued appropriately. The patient has a history of coronary disease status post bypass graft surgery in 2017 receiving a CARTY to the LAD a vein graft to the OM branch of the circumflex and a vein graft to the right coronary artery. His anginal equivalent was a profound dyspnea on exertion with a hot sensation. He denies any recurrence of the symptoms denies any chest pain. He does have a history ofan ischemic cardiomyopathy EF is known to be 45% on an echocardiogram in 2021 ithas not been repeated. The patient has been on hemodialysis long-term he also has a history of mild tricuspid digitation mild mitral stenosis and aortic insufficiency. His right ventricular systolic pressure was 49 on that echo in 2021. Is to be admitted to the PCU nephrology is been consulted for urgent dialysis. [facility] Medical History C. difficile diarrhea Anemia History of GI bleed Pure hypercholesterolemia Ischemic cardiomyopathy Essential hypertension Renal insufficiency Ankylosing spondylitis CAD (coronary artery disease) Overweight (BMI 25.0-29.9) Leg edema Leg swelling Acute systolic heart failure Bradycardia Biliary pleural effusion HTN (hypertension) Ventricular tachyarrhythmia Atherosclerosis of [place] coronary artery of [place] heart without angina pectoris Pulmonary HTN Cardiomyopathy Valvular heart disease NSTEMI (non-ST elevated myocardial infarction) CHF (congestive heart failure) Abscess of right foot Diabetes mellitus with neuropathy Gout DM2 (diabetes mellitus, type 2) Home Medications ?Medication ?Instructions ?Recorded ?Last Taken ?Type latanoprost 0.005 % eye drops 1 drp EACH EYE QHS 06/0312/10/24 History melatonin 5 mg tablet 10 mg PO HS PRN Sleep 12/10/24 History loratadine 10 mg capsule 10 mg PO DAILY PRN allergy s ymptoms 10/24/21 12/10/24 History sevelamer carbonate 800 mg tablet 800 mg PO TID 12/10/24 History handicap placcard #1 ea 07/07/22 Unknown Rx aspirin 81 mg tablet,delayed 81 mg PO DAILY #90 tabs 0 04/23/24 12/10/24 Rx release (Adult Aspirin Regimen) bumetanide 2 mg tablet 2 mg PO DAILY FLUID #90 tabs 07/09/24 12/10/24 Rx hydroxyzine HCl 25 mg tablet 25 mg PO Q6 PRN itch 03/0 12/1912/10/24 History insulin glargine 100 unit/mL (3 10 unit subcut QPM 12/19 Unknown History mL) subcutaneous pen (Lantus Solostar U-100 Insulin) tadalafil 20 mg tablet 20 mg PO DAILY PRN sexual ac tivity 10/28/24 Unknown History atorvastatin 40 mg tablet 40 mg PO DAILY 12/11/2411/25 History benzonatate 100 mg capsule 100 mg PO TID PRN cough 12/10/24 History metolazone 5 mg tablet 5 mg PO DAILY 12/11/2412/10 History pantoprazole 40 mg tablet,delayed 40 mg PO BID 5 12/10/24 History release trazodone 50 mg tablet 50 mg PO QHS 12/11/24 History vitamin B complex-vitamin C-folic 1 tab PO DAILY 12/1112/10/24 History acid 0.8 mg tablet (Dialyvite 800) Allergy/AdvReac Type Severity Reaction Status Date / Time pregabalin (From Lyrica) Allergy Angioedema Verified 12/11/24 14:17 Family History Father CAD (coronary artery disease) Mother CAD (coronary artery disease) Surgical History History of cataract extraction hx femur surgery Hx of arthroscopy History of open reduction and internal fixation (ORIF) procedure Hx of CABG (~04/12/17) Social History household members: spouse Smoking Status: Former smoker alcohol intake: never substance use type: does not use caffeine: No what type of physical activity do you participate in: none seatbelt use: always do you feel safe at home: Yes ROS Constitutional Constitutional: Reports as per HPI Eyes Eyes: Reports systems reviewed and no addt'l complaints, except as documented ENT HEENT: Reports systems reviewed and no addt'l complaints, except as documented Cardiovascular Cardiovascular: Reports as per HPI Respiratory/Chest Respiratory/Chest: Reports as per HPI Gastrointestinal Gastrointestinal: Reports as per HPI Genitourinary Genitourinary: Reports as per HPI Musculoskeletal Musculoskeletal: Reports as per HPI Integumentary Integumentary: Reports systems reviewed and no addt'l complaints, except as documented Neurologic Neurologic: Reports systems reviewed and no addt'l complaints, except as documented Psychiatric Psychiatric: Reports systems reviewed and no addt'l complaints, except as documented Endocrine Endocrinology: Reports as per HPI Hematologic/Lymphatic Hematologic/Lymphatic: Reports as per HPI Allergic/Immunologic Allergic/Immunologic: Reports systems reviewed and no addt'l complaints, except as documented Physical Exam Const alert and oriented x3 HEENT normocephalic Eyes EOMs intact bilaterally Neck supple Carotids: Negative for bruit Chest Chest: midline sternotomy incision Resp normal respiratory effort Auscultation: crackles bilateral lower and 1/2 way up and diminished lung soundsbilateral lower Cardio Cardio Narrative: Functioning fistula in his left upper arm. Rate: regular rate Rhythm: abnormal rhythm irregularly irregular Heart Sounds: S1 normal, S2 normal and murmur systolic II/ blowing mid right sternal border; Negative for click or gallop GI soft to palpation Extremity General Extremity: edema bilateral lower extremity Details: mild Neuro Neuro Narrative: Alert and oriented x 3 Risk Stratification Risk Stratification Applicable: No Charges/Coding Visit Charges Inpatient E&M: 77936 Init Hosp L3 Objective Data Vital Signs: Vital Signs Temp Pulse Resp BP Pulse Ox O2 Del Method 97.6 F L 76 20 H 97/71 93 Room Air 12/11/24 14:17 12/11/24 16:16 12/11/24 16:16 12/11/24 16:16 12/11/24 16:16 12/11/24 16:16 Oxygen Delivery Method Room Air Lab / Micro Data Attestation: I reviewed the patient's lab results. 12/11/24 14:35 12/11/24 14:35 Labs: Laboratory Results - last 24 hr 12/11/24 14:35: WBC 9.1, RBC 4.01 L, Hgb 13.0, Hct 37.2 L, MCV 92.8, MCH 32.4 H,MCHC 34.9, RDW Std Deviation 56.2 H, RDW Coeff of Yuri 17.0 H, Plt Count 120 L, MPV 10.1, Immature Gran % (Auto) 0.400, Neut % (Auto) 77.3 H, Lymph % (Auto) 7.7L, Bucks % (Auto) 13.0 H, Eos % (Auto) 0.9, Baso % (Auto) 0.7, Absolute Neuts (auto) 7.0, Absolute Lymphs (auto) 0.70 L, Nucleated RBC % 0, Sodium 131 L, Potassium 5.9 H, Chloride 84 L, Carbon Dioxide 21.0, Anion Gap 26 H, BUN 124 H*, Creatinine 8.04 H*, Est GFR (MDRD) Non-Af 7 L, BUN/Creatinine Ratio 15.4, Glucose 88, Calcium 10.0 Micro: Microbiology 12/11/24 14:42 Mucosa - Nose SARS-CoV-2, Influenza & RSV (PCR) - Final Rhythm Strip Rhythm Strip: A-fib Rate: 90 Cardiology Labs/Tests 12/11/24 14:35: WBC 9.1, RBC 4.01 L, Hgb 13.0, Hct 37.2 L, MCV 92.8, MCH 32.4 H,MCHC 34.9, Plt Count 120 L, MPV 10.1, Immature Gran % (Auto) 0.400, Neut % (Auto) 77.3 H, Lymph % (Auto) 7.7 L, Bucks % (Auto) 13.0 H, Eos % (Auto) 0.9, Baso % (Auto) 0.7, Absolute Neuts (auto) 7.0, Nucleated RBC % 0, Sodium 131 L, Potassium 5.9 H, Chloride 84 L, Carbon Dioxide 21.0, Anion Gap 26 H, BUN 124 H*, Creatinine 8.04 H*, Est GFR (MDRD) Non-Af 7 L, BUN/Creatinine Ratio 15.4, Glucose 88, Calcium 10.0 Rhythm: EKG: ECHO: Stress Test: Cardiac Cath: PCI: CT Surgery: Holter monitor: EPS: PPM: CXR: Chest CT Scan: Radiography Diagnostic Testing: Radiology Impression Chest X-Ray 12/11/24 15:10 IMPRESSION: CHF exacerbation. Reading Location: [facility] 12/11/241814 <Electronically signed by Jensen Claire MD> Cosigner Signature (if applicable): CC: Dr. Rigoberto Gould MD~ Signed [facility] Work Phone: [phone] History and physical note Author Mary Jo Granados [facility] Note Date/Time December 11, 2024 5:1 8pm [facility] Medical Records Department [address] [place] [address] H&P Exam - Hospitalist 12/11/24 1652 MR#: [id number] Acct: [id number] Name: MAURI QUINONES Farhana Rep #:[id number] : 1955 69 From: Mary Jo Granados MD PCP: Dr. Rigoberto Gould MD Status:REG E R Location: ED HPI - General General Date of Admission: 12/11/24 Date of Service: 12/11/24 Chief Complaint: Missed HD x 2, fatigue, malaise, N/V, dyspnea, increased edema/weight gain/orthopnea, cough. HPI Narrative The patient is a 69 y/o M w/ PMHx: Diabetes mellitus type II, HTN, HLD, HFrEF/ischemic cardiomyopathy, CAD, Pulmonary HTN, Ankylosing spondylitis, GERD w/ Hx GI bleed, Hx C. difficile diarrhea/colitis, ESRD on HD, Valvular Heart Disease, CAD status post CABG, Former tobacco use who presents to the [facility] ED on 12/11/24 with history of recently missing 2 sessions of HD and following then onset of reported URI type symptoms including mild dyspnea, worse with exertion,cough, sore throat with fatigue, malaise and persistent nausea and emesis noted to be waxing and waning with poor oral intake and decreased urine output as he notes he still makes urine with chronic stable orthopnea as well as chronic distal lower extremity swelling and pain with no recent fevers or chills nor anyassociated abdominal pain nor any abnormal looking emesis but given inability tomaintain appropriate oral intake and GI losses prompted ED evaluation. He notesin the past when he has been sick and missed 2 dialysis sessions he is never hadthe issues he is having currently. He reports significant recent issues managing dry weight and notes that cardiology has altered his medications with recent addition of metolazone. He notes that he was also recently taken off of his beta-rufus therapy secondary to issues with low blood pressure with dialysis. Workup in the ED included T97.6, heart rate 79, BP 140/98, respiratory rate 18, 97% room air, CBC with WBC 9.1, hemoglobin 13, platelet 120with lymphopenia, BMP with sodium 131, potassium 5.9, chloride 84, chest x-ray with congestion, EKG with atrial fibrillation rate controlled with no acute evidence of ischemia and no concern for peaked T waves. [facility] Medical History C. difficile diarrhea Anemia History of GI bleed Pure hypercholesterolemia Ischemic cardiomyopathy Essential hypertension Renal insufficiency Ankylosing spondylitis CAD (coronary artery disease) Overweight (BMI 25.0-29.9) Leg edema Leg swelling Acute systolic heart failure Bradycardia Biliary pleural effusion HTN (hypertension) Ventricular tachyarrhythmia Atherosclerosis of [place] coronary artery of [place] heart without angina pectoris Pulmonary HTN Cardiomyopathy Valvular heart disease NSTEMI (non-ST elevated myocardial infarction) CHF (congestive heart failure) Abscess of right foot Diabetes mellitus with neuropathy Gout DM2 (diabetes mellitus, type 2) Home Medications ?Medication ?Instructions ?Recorded ?Last Taken ?Type latanoprost 0.005 % eye drops 1 drp EACH EYE QHS 06/0312/10/24 History melatonin 5 mg tablet 10 mg PO HS PRN Sleep 12/10/24 History loratadine 10 mg capsule 10 mg PO DAILY PRN allergy s ymptoms 10/24/21 12/10/24 History sevelamer carbonate 800 mg tablet 800 mg PO TID 12/10/24 History handicap placcard #1 ea 07/07/22 Unknown Rx aspirin 81 mg tablet,delayed 81 mg PO DAILY #90 tabs 0 04/23/24 12/10/24 Rx release (Adult Aspirin Regimen) bumetanide 2 mg tablet 2 mg PO DAILY FLUID #90 tabs 07/09/24 12/10/24 Rx hydroxyzine HCl 25 mg tablet 25 mg PO Q6 PRN itch 03/0 12/1912/10/24 History insulin glargine 100 unit/mL (3 10 unit subcut QPM 12/19 Unknown History mL) subcutaneous pen (Lantus Solostar U-100 Insulin) tadalafil 20 mg tablet 20 mg PO DAILY PRN sexual ac tivity 10/28/24 Unknown History atorvastatin 40 mg tablet 40 mg PO DAILY 12/11/2411/25 History benzonatate 100 mg capsule 100 mg PO TID PRN cough 12/10/24 History metolazone 5 mg tablet 5 mg PO DAILY 12/11/2412/10 History pantoprazole 40 mg tablet,delayed 40 mg PO BID 5 12/10/24 History release trazodone 50 mg tablet 50 mg PO QHS 12/11/24 History vitamin B complex-vitamin C-folic 1 tab PO DAILY 12/1112/10/24 History acid 0.8 mg tablet (Dialyvite 800) Allergy/AdvReac Type Severity Reaction Status Date / Time pregabalin (From Lyrica) Allergy Angioedema Verified 12/11/24 14:17 Family History Father CAD (coronary artery disease) Mother CAD (coronary artery disease) Surgical History History of cataract extraction hx femur surgery Hx of arthroscopy History of open reduction and internal fixation (ORIF) procedure Hx of CABG (~04/12/17) Social History (Updated 12/11/24 @ 17:[address] Mary Jo Granados MD) household members: spouse Smoking Status: Former smoker alcohol intake: never substance use type: does not use caffeine: No what type of physical activity do you participate in: none seatbelt use: always do you feel safe at home: Yes ROS ROS Narrative Admission Review of Systems: CONSTITUTIONAL: No weight loss, fever, chills, + weakness or fatigue. HEENT: + Sore throat, congestion, rhinorrhea. Eyes: No visual loss, blurred vision, double vision or yellow sclerae. Ears, Nose, Throat: No hearing loss, sneezing. SKIN: No rash or itching, lesions, wounds. CARDIOVASCULAR: + Chronic distal edema, orthopnea. No chest pain, chest pressure or chest discomfort, palpitations, syncopal events. RESPIRATORY: + Dyspnea, worse with exertion, cough not markedly productive. No wheezing, hemoptysis. GASTROINTESTINAL: + Anorexia/lack of appetite, nausea, vomiting. No diarrhea, abdominal pain, melena, BRBPR. GENITOURINARY: + Decreased urine output. No dysuria, frequency, urgency or retention. NEUROLOGICAL: No headache, dizziness, syncope, paralysis, ataxia, numbness or tingling in the extremities, focal weakness, change in bowel or bladder control,seizure. MUSCULOSKELETAL: + muscle, back pain, joint pain or stiffness. HEMATOLOGIC: + Chronic anemia, easy bleeding/bruising. LYMPHATICS: No enlarged nodes. No history of splenectomy. PSYCHIATRIC: No history of depression or anxiety. ENDOCRINOLOGIC: + reports of sweating, cold or heat intolerance. No polyuria or polydipsia. ALLERGIES: No history of asthma, hives, eczema or rhinitis. Vital Signs Vital Signs Vital Signs: 12/11/24 14:17 Temperature 97.6 F L Temperature Source Oral Pulse Rate 79 Respiratory Rate 18 Blood Pressure 140/98 H Blood Pressure Mean 112 Pulse Ox 97 Oxygen Delivery Method Room Air Physical Exam Narrative Physical Examination: General: Awake, alert, oriented x 3 and cooperative, seated upright in the ED bed, mildly altered speech secondary to not having dentures in place. Skin: Normal color, normal turgor, no icterus, no cyanosis except very stage ecchymoses, abrasion, bilateral lower extremity venous stasis skin changes. HEENT: AT/NC, EOMI, PERRLA, MMM, no carotid bruits, + JVD noted. Lungs: Diminished, greater bases, mildly increased respiratory rate but no distress, rales/crackles bilaterally especially posteriorly, no rhonchi or wheezing. Heart: Irregular, rate controlled; no gallop, rub audible, + SM Abdomen: Soft, NTTP, ND, distant normal BS, no appreciated HSM. Extremities: No cyanosis, no clubbing, pedal to proximal nieto 2+ pitting edema, left upper extremity with + thrill. Neurological: Patient awake, alert, oriented as noted, cognitive function intact; pupils equally reactive to light and accommodation, cranial nerves grossnormal, moving all 4 extremities, no focal deficits, strength moderately to severely globally decreased secondary to acute presentation. Psychiatric: Affect appears fatigued, no acute evidence of depressive or anxietyfeelings. Results Lab / Micro Data 12/11/24 14:35 12/11/24 14:35 Labs: Laboratory Results - last 24 hr 12/11/24 14:35: WBC 9.1, RBC 4.01 L, Hgb 13.0, Hct 37.2 L, MCV 92.8, MCH 32.4 H,MCHC 34.9, RDW Std Deviation 56.2 H, RDW Coeff of Yuri 17.0 H, Plt Count 120 L, MPV 10.1, Immature Gran % (Auto) 0.400, Neut % (Auto) 77.3 H, Lymph % (Auto) 7.7L, Bucks % (Auto) 13.0 H, Eos % (Auto) 0.9, Baso % (Auto) 0.7, Absolute Neuts (auto) 7.0, Absolute Lymphs (auto) 0.70 L, Nucleated RBC % 0, Sodium 131 L, Potassium 5.9 H, Chloride 84 L, Carbon Dioxide 21.0, Anion Gap 26 H, BUN 124 H*, Creatinine 8.04 H*, Est GFR (MDRD) Non-Af 7 L, BUN/Creatinine Ratio 15.4, Glucose 88, Calcium 10.0 Micro: Microbiology 12/11/24 14:42 Mucosa - Nose SARS-CoV-2, Influenza & RSV (PCR) - Final Imaging Radiology Impression Chest X-Ray 12/11/24 15:10 IMPRESSION: CHF exacerbation. Reading Location: [facility] Assessment & Plan Assessment/Plan (1) Acute hyperkalemia: (2) Hyponatremia: (3) Fluid overload: (4) Acute uremia: PLAN: Plan The patient is a 69 y/o M w/ PMHx: Diabetes mellitus type II, HTN, HLD, HFrEF/ischemic cardiomyopathy, CAD, Pulmonary HTN, Ankylosing spondylitis, GERD w/ Hx GI bleed, Hx C. difficile diarrhea/colitis, ESRD on HD, Valvular Heart Disease, CAD status post CABG, Former tobacco use who presents to the [facility] ED on 12/11/24 with history of recently missing 2 sessions of HD and following then onset of reported URI type symptoms including mild dyspnea, worse with exertion,cough, sore throat with fatigue, malaise and persistent nausea and emesis noted to be waxing and waning with poor oral intake and decreased urine output as he notes he still makes urine with chronic stable orthopnea as well as chronic distal lower extremity swelling and pain with no recent fevers or chills nor anyassociated abdominal pain nor any abnormal looking emesis but given inability tomaintain appropriate oral intake and GI losses prompted ED evaluation. #1. Acute Decompensated HFrEF/ischemic cardiomyopathy suspected secondary to primarily missing dialysis x 2 sessions, complicated by onset of intractable nausea and emesis possibly because of uremia: Will admit to PCU, maintain on cardiac telemetry, monitor I/Os, maintain on intake restriction, ECHO requested as none noted since 2021, IV laxis until HD available, nephrology consulted for dialysis preferentially today, continue medical therapy, magnesium level requested, place neck vanessa wraps bilateral lower extremity elevation. Given recent significant difficulties with managing patient dry weight per discussion with patient and family will request cardiology involvement. Given recent significant issues with hypotension especially with dialysis and current dialysis needs will initiate on midodrine as well. #2. Acute kidney injury on ESRD on HD, secondary to uremia and GI losses: Admission BUN/Cr 124/8.04, GFR 7, prior baseline creatinine noted to be primarily 4.2-4.3 however this was in 2021 thus it is uncertain exactly what range he has been recently. Given presentation with missed dialysis and concernfor volume overload will avoid aggressive hydration, GI losses potentially secondary to uremia, nephrology consulted and preferentially would be dialyzed on day of admission. Avoiding aggressive hydration given concern for overload. #3. Hyperkalemia: Admission potassium 5.9 in the setting of acute kidney injury, will continue hyperkalemic protocol with initiation of insulin, dextrose, albuterol, Kayexalate with serial repeat BMP until clinically assured improvement, maintain on telemetry. Nephrology consulted for dialysis as noted. #4. Acute hyponatremia, hypochloremia, unfortunately it appears he is volume overloaded thus could be a component of hypervolemia but also he has been stating intractable nausea and emesis but certainly has some GI loss component: Admission sodium 131, chloride 84, given overload concerns avoiding aggressive hydration, nephrology consulted for preferentially dialysis on day of presentation. #5. Acute thrombocytopenia, possibly reactive given acute presentation with questionable concurrent URI in addition to as noted above: Admission platelet 120, baseline previously normal, most recently however labs from 2021, will continue to trend CBC. #6. Possible Acute viral syndrome suspected: Complicates presentation, potentially could be symptoms primarily secondary to missing dialysis x 2 but uncertain, rapid SARS COVID/influenza/RSV negative, will obtain full respiratoryviral panel, sputum Cx, procalcitonin, treat conservatively with as needed regimen for cough, congestion. #7. Paroxysmal atrial fibrillation, new onset, rate controlled: EKG in ED w/ atrial fibrillation, rate controlled in the ED and patient and deny historynotes not any other records from the cardiology office also. Will maintain on telemetry, obtain magnesium level, obtain ECHO, obtain TSH level. CHADs scoring appropriate for anticoagulation start, will add Eliquis. #8. CAD: Status post CABG (S/P surgery with CARTY to LAD, SVG to OM system, and SVG to PDA in March 2017 at [facility]), if able to tolerate will continue aspirin, statin, Coreg regimen, not on VANESSA/ARB with underlying renal disease as noted. #9. Diabetes mellitus type II: Hold oral home regimen, continue home insulin regimen however pending blood sugar assessments given clear liquids at this timegiven nausea and emesis bouts may consider one half dose or holding of hypoglycemia concern, maintained on every 6 hours accu checks w/ ISS. #10. PAF: Patient with EKG with atrial fibrillation rate controlled, will continue Coreg, per current list is not chronically anticoagulated. #11. GERD, history of GI bleed: Will maintain on IV PPI given intractable nausea and emesis until improving. #12. Pulmonary hypertension: Complicates presentation, per records appears he is only on tadalafil and is listed as needed but clarifying to be certain. #13. Hypertension: Continue home regimen including hydralazine, doxazosin, Coreg, PRN hydralazine. Also normally on bumetanide and metolazone, given overload appearance if necessary may consider pulsed dosing with IV regimen however given his significant acute kidney injury on chronic with dialysis needspreferentially would wait until dialysis performed before readdition of these medications especially given ongoing GI losses. #14. Hyperlipidemia: Will continue patient on statin therapy. #15. Valvular heart disease: Remote echo noted from 04/25/2022 from outside facility with mildly dilated LV, moderate LV hypertrophy, LV systolic function mildly decreased with EF 45? percent, grade 2 LV diastolic dysfunction, RV moderately dilated, RV systolic function moderately decreased, mildly dilated LAand RA, moderate 2+ TVR, RVSP 49 mmHg consistent with moderate pulmonary hypertension, mild mitral stenosis due to moderate MAC, mild PI, mild AI, apicalanterior lateral, mid anterolateral, mid inferior septal hypokinesis. Echocardiogram requested as noted above. #16. Former tobacco use: Encourage continued tobacco cessation. #17. Allergic rhinitis: Continue patient home loratadine regimen. #18. DVT prophylaxis: Starting on Eliquis as noted. #18 CODE status: Patient HCPOA and living will are not in place but his whois present would be his medical decision-maker if necessary he notes. Discussed CODE status at length including difference between FULL code, DNR-CCA and DNR- CCstatus. Following discussions about the differences in these status, requested DNR-CCA, no intubation status. Advanced Care Planning Face to Face Time: 16 minutes. Charges/Coding Visit Charges Inpatient E&M: 20568 Init Hosp L3 Procedures Hospitalists Procedures: 20461 Advncd Care Plan 30 Min 12/11/248 <Electronically signed by Mary Jo Granados MD> Cosigner Signature (if applicable): CC: Dr. Mary Jo Granados MD; Dr. Rigoberto Gould MD~ Signed [facility] Work Phone: [phone] Discharge summary Author Rafarima Felder [facility] Note Date/Time December 11, 2024 4:4 3pm [facility] Medical Records Department [address] [place] [address] Emergency Department Summary 12/11/24 MR#: [id number] Acct: [id number] Name: MAURI QUINONES Rep #:[id number] : 1955 69 From: Rafa Felder MD PCP: Dr. Rigoberto Gould MD Status:REG E R Location: ED HPI History of Present Illness Chief Complaint: Nausea/Vomiting Detail of Chief Complaint: Upper respiratory symptoms, nausea vomiting generalized weak Informant: patient and spouse/S.O. Onset/Context/Timing Onset: Days (Symptoms started day he missed his dialysis, December 09) Context: Sudden Onset Timing: Continuous and Waxes and wanes Quality: General weakness, respiratory symptoms, nausea vomiting Location: Vague generalized Current Severity: Mild Maximum Severity: Moderate Worsened by: Nothing Relieved by: Nothing Associated Symptoms Associated Symptoms: Poor p.o. intake, decreased urine output Narrative Narrative: Patient is a 69-year-old male when I entered the room he and his significant other told me that the dialysis unit wants him tested for COVID. Attempted to ask questions and again I was informed he needs to be tested for COVID. Patient has not felt well since December 09. He did not go to dialysis onTuesday and did not go to his dialysis appointment today. He has chronic stableorthopnea. He also has pain in his right lower extremity that limits how flat he can lie. He does endorse swelling of his lower extremities. He denies fever, chills night sweats. He denies headache, double vision blurredvision loss of vision. Denies ear pain, ear drainage or ringing in his ears. He does endorse mild nasal congestion. He does endorse mild throat discomfort with coughing. His cough is nonproductive. He does endorse some mild dyspnea with activity. He denies PND. He denies chest discomfort. He denies abdominal pain. He does have nausea and vomiting. He denies hematemesis or coffee-ground emesis. He denies black or maroon-colored stool. His lower extremity exam are swollen compared to normal. He also has some slight discoloration. He denies history of DVT. Prior similar symptoms: Yes Recent Illness/Hospitalization: No PFSH [facility] Medical History C. difficile diarrhea Anemia History of GI bleed Pure hypercholesterolemia Ischemic cardiomyopathy Essential hypertension Renal insufficiency Ankylosing spondylitis CAD (coronary artery disease) Overweight (BMI 25.0-29.9) Leg edema Leg swelling Acute systolic heart failure Bradycardia Biliary pleural effusion HTN (hypertension) Ventricular tachyarrhythmia Atherosclerosis of [place] coronary artery of [place] heart without angina pectoris Pulmonary HTN Cardiomyopathy Valvular heart disease NSTEMI (non-ST elevated myocardial infarction) CHF (congestive heart failure) Abscess of right foot Diabetes mellitus with neuropathy Gout DM2 (diabetes mellitus, type 2) Home Medications ?Medication ?Instructions ?Recorded ?Last Taken ?Type latanoprost 0.005 % eye drops 1 drp EACH EYE QHS 06/0312/10/24 History melatonin 5 mg tablet 10 mg PO HS PRN Sleep 12/10/24 History loratadine 10 mg capsule 10 mg PO DAILY PRN allergy s ymptoms 10/24/21 12/10/24 History sevelamer carbonate 800 mg tablet 800 mg PO TID 12/10/24 History handicap placcard #1 ea 07/07/22 Unknown Rx aspirin 81 mg tablet,delayed 81 mg PO DAILY #90 tabs 0 04/23/24 12/10/24 Rx release (Adult Aspirin Regimen) bumetanide 2 mg tablet 2 mg PO DAILY FLUID #90 tabs 07/09/24 12/10/24 Rx hydroxyzine HCl 25 mg tablet 25 mg PO Q6 PRN itch 03/12/1912/10/24 History insulin glargine 100 unit/mL (3 10 unit subcut QPM 12/19 Unknown History mL) subcutaneous pen (Lantus Solostar U-100 Insulin) tadalafil 20 mg tablet 20 mg PO DAILY PRN sexual ac tivity 10/28/24 Unknown History atorvastatin 40 mg tablet 40 mg PO DAILY 12/11/24/02/18 History benzonatate 100 mg capsule 100 mg PO TID PRN cough 12/10/24 History metolazone 5 mg tablet 5 mg PO DAILY 12/11/2412/10 History pantoprazole 40 mg tablet,delayed 40 mg PO BID 5 12/10/24 History release trazodone 50 mg tablet 50 mg PO QHS 12/11/24 History vitamin B complex-vitamin C-folic 1 tab PO DAILY 12/1112/10/24 History acid 0.8 mg tablet (Dialyvite 800) Allergy/AdvReac Type Severity Reaction Status Date / Time pregabalin (From Lyrica) Allergy Angioedema Verified 12/11/24 14:17 Family History Father CAD (coronary artery disease) Mother CAD (coronary artery disease) Surgical History History of cataract extraction hx femur surgery Hx of arthroscopy History of open reduction and internal fixation (ORIF) procedure Hx of CABG (~04/12/17) Social History Smoking Status: Former smoker alcohol intake: never substance use type: does not use caffeine: No what type of physical activity do you participate in: none seatbelt use: always do you feel safe at home: Yes ROS ROS ED Constitutional Constitutional ED: Denies chills, fever(s), subjective, sweats or weight loss Eyes Eyes: Denies blurry vision, change in vision or diplopia ENT ENT ED: Reports sore throat; Denies ear pain or rhinorrhea Cardiovascular Cardiovascular: Reports orthopnea; Denies chest pain, palpitations or paroxysmalnocturnal dyspnea Respiratory/Chest Respiratory/Chest: Reports cough, dyspnea, dyspnea on exertion and orthopnea; Denies paroxysmal nocturnal dyspnea or sputum Gastrointestinal Gastrointestinal: Reports nausea and vomiting; Denies abdominal pain, diarrhea or melena Genitourinary Genitourinary ED: Reports other Details: Decreased urine output. ; Denies dysuria, hematuria or urinary frequency Musculoskeletal Musculoskeletal: Denies arthralgias or myalgias Integumentary Reports rash Neurologic Neurologic: Reports weakness; Denies headache(s) or paresthesias Endocrine Endocrinology: Denies cold intolerance or heat intolerance Hematologic/Lymphatic Hematologic/Lymphatic: Reports systems reviewed and no addt'l complaints, exceptas documented EXAM Physical Exam Const Vital Signs: 12/11/24 14:17 Temperature 97.6 F L Temperature Source Oral Pulse Rate 79 Respiratory Rate 18 Blood Pressure 140/98 H Blood Pressure Mean 112 Pulse Ox 97 Oxygen Delivery Method Room Air Positive well nourished and well developed General Appearance ED: well developed and NAD; Negative for cyanotic, diaphoretic or pallor HEENT Reports dry mucous membranes HEENT Narrative: Head is atraumatic normocephalic. Ears normal. Nares patent. Posterior pharynx is normal. Uvula midline. No deviation with protrusion Mouth ED: Yes dry mucous membranes Mouth: dry mucous membranes Eyes PERRL and EOMs intact bilaterally General Eye ED: Negative for pale conjunctiva or scleral icterus Neck no lymphadenopathy, supple and no JVD Chest Wall inspection of chest normal and palpation of chest normal Resp normal respiratory effort Auscultation: rales bilateral base Cardio regular rate, regular rhythm, S1 normal heart sound, S2 normal heart sound and no murmurs GI normal to inspection, nondistended, normoactive bowel sounds, non-tender, non-distended and no masses; Negative for hepatosplenomegaly Palpation: soft Back/Spine no CVA tenderness Extremity Negative for normal to inspection Extremity Narrative: Venous stasis dermatitis. (Mild) General Extremety ED: Yes edema and tenderness General Extremity: edema Neuro oriented x3 and CN's II-XII intact bilaterally Sensorium / Orientation: alert Psych mental status grossly normal Skin no rashes or lesions noted and No skin turgor normal General Skin Exam: Negative for elasticity normal, jaundice or pallor MDM MDM MDM Narrative Medical decision making narrative: Will test for COVID. Will obtain chest x-ray to assess for fluid overload, pneumonia, pleural effusion. CBC to assess white count and H&H. Electrolyte panel to assess for hyperkalemia since he has missed 2 dialysis appointments andhas not been dialyzed since last Sunday. History & Record Review Additional record(s) reviewed:: Prior inpatient record (Inpatient note by internal medicine [facility] physician. Also office visit for dialysis catheter. Discharge note authored by Dr. Delvalle still September 2020.), Prior outpatient record (Seen for vitreal retinal consultation with Dr. Roth on April 2023. Office visit with Dr. Gould for atherosclerotic heart disease.), Prior ED visit and Prior labs Lab Data Attestation: I reviewed the patient's lab results. Lab results narrative: CBC is unremarkable. Rapid antigen for COVID, RSV and influenza are all negative. Labs: Laboratory Results - last 24 hr 12/11/24 14:35 WBC 9.1 RBC 4.01 L Hgb 13.0 Hct 37.2 L MCV 92.8 MCH 32.4 H MCHC 34.9 RDW Std Deviation 56.2 H RDW Coeff of Yuri 17.0 H Plt Count 120 L MPV 10.1 Immature Gran % (Auto) 0.400 Neut % (Auto) 77.3 H Lymph % (Auto) 7.7 L Bucks % (Auto) 13.0 H Eos % (Auto) 0.9 Baso % (Auto) 0.7 Absolute Neuts (auto) 7.0 Absolute Lymphs (auto) 0.70 L Nucleated RBC % 0 Sodium 131 L Potassium 5.9 H Chloride 84 L Carbon Dioxide 21.0 Anion Gap 26 H BUN 124 H* Creatinine 8.04 H* Est GFR (MDRD) Non-Af 7 L BUN/Creatinine Ratio 15.4 Glucose 88 Calcium 10.0 Radiography Chest X-Ray - ED: 2 View, Read by ED Physician (Patient has some mild fluid overload with fluffiness of the hilum and curly B-lines noted. Inspiratory volume is limited. There is no effusion. There is no infiltrate. There is no acute abnormality of the osseous structures. This is a 20 reviewed interpreted by me at 1520.), Heart and Bony Structures Diagnostic Testing: Clinical Impression(s) from Imaging Studies Chest X-Ray 12/11/24 15:10 IMPRESSION: CHF exacerbation. Reading Location: [facility] EKG Initial EKG: Attestation: I personally reviewed and interpreted this EKG as follows: Interpretation: Atrial Fibrillation (Rate is 89. There is evidence of right bundle branch block. QRS duration 162 ms. QT duration 128 ms. Mullen of the right. There is no acute ischemic changes. There is no changes that are concerning for hyperkalemia i.e. peaked T waves. Will need old to determine if this is a new right bundle br) Management Discussion w/another healthcare provider: Hospitalist (Case was discussed with Dr. Granados. Patient will be a full admit to PCU.) Discharge Plan Dx/Rx/DC Orders Clinical Impression: Fluid overload, Pure hypercholesterolemia, Acute uremia, End-stage renal disease on hemodialysis, History of ischemic cardiomyopathy, Acute hyperkalemia,Hyponatremia Disposition Disposition: [facility] What to do if you have Problems For any increased pain, shortness of breath, bleeding, nausea or vomiting, chestpain, or any unexpected problems, contact your Primary Care Provider. Call [facility] ([phone]) or report to the closest Emergency Room. Call 911 if necessary. 12/11/24 1643 <Electronically signed by Rafa Felder MD> Cosigner Signature (if applicable): CC: Dr. Rigoberto Gould MD ~ Signed [facility] Work Phone: [phone] Discharge summary Author Rafa [facility] Note Date/Time December 11, 2024 4:4 3pm [facility] Medical Records Department [address] [place] [address] Emergency Department Summary 12/11/24 MR#: [id number] Acct: [id number] Name: MAURI QUINONES Rep #:[id number] : 1955 69 From: Rafa Felder MD PCP: Dr. Rigoberto Gould MD Status:REG E R Location: ED HPI History of Present Illness Chief Complaint: Nausea/Vomiting Detail of Chief Complaint: Upper respiratory symptoms, nausea vomiting generalized weak Informant: patient and spouse/S.O. Onset/Context/Timing Onset: Days (Symptoms started day he missed his dialysis, December 09) Context: Sudden Onset Timing: Continuous and Waxes and wanes Quality: General weakness, respiratory symptoms, nausea vomiting Location: Vague generalized Current Severity: Mild Maximum Severity: Moderate Worsened by: Nothing Relieved by: Nothing Associated Symptoms Associated Symptoms: Poor p.o. intake, decreased urine output Narrative Narrative: Patient is a 69-year-old male when I entered the room he and his significant other told me that the dialysis unit wants him tested for COVID. Attempted to ask questions and again I was informed he needs to be tested for COVID. Patient has not felt well since December 09. He did not go to dialysis onTuesday and did not go to his dialysis appointment today. He has chronic stableorthopnea. He also has pain in his right lower extremity that limits how flat he can lie. He does endorse swelling of his lower extremities. He denies fever, chills night sweats. He denies headache, double vision blurredvision loss of vision. Denies ear pain, ear drainage or ringing in his ears. He does endorse mild nasal congestion. He does endorse mild throat discomfort with coughing. His cough is nonproductive. He does endorse some mild dyspnea with activity. He denies PND. He denies chest discomfort. He denies abdominal pain. He does have nausea and vomiting. He denies hematemesis or coffee-ground emesis. He denies black or maroon-colored stool. His lower extremity exam are swollen compared to normal. He also has some slight discoloration. He denies history of DVT. Prior similar symptoms: Yes Recent Illness/Hospitalization: No PFSH PFS Medical History C. difficile diarrhea Anemia History of GI bleed Pure hypercholesterolemia Ischemic cardiomyopathy Essential hypertension Renal insufficiency Ankylosing spondylitis CAD (coronary artery disease) Overweight (BMI 25.0-29.9) Leg edema Leg swelling Acute systolic heart failure Bradycardia Biliary pleural effusion HTN (hypertension) Ventricular tachyarrhythmia Atherosclerosis of [place] coronary artery of [place] heart without angina pectoris Pulmonary HTN Cardiomyopathy Valvular heart disease NSTEMI (non-ST elevated myocardial infarction) CHF (congestive heart failure) Abscess of right foot Diabetes mellitus with neuropathy Gout DM2 (diabetes mellitus, type 2) Home Medications ?Medication ?Instructions ?Recorded ?Last Taken ?Type latanoprost 0.005 % eye drops 1 drp EACH EYE QHS 06/0312/10/24 History melatonin 5 mg tablet 10 mg PO HS PRN Sleep 12/10/24 History loratadine 10 mg capsule 10 mg PO DAILY PRN allergy s ymptoms 10/24/21 12/10/24 History sevelamer carbonate 800 mg tablet 800 mg PO TID 12/10/24 History handicap placcard #1 ea 07/07/22 Unknown Rx aspirin 81 mg tablet,delayed 81 mg PO DAILY #90 tabs 0 04/23/24 12/10/24 Rx release (Adult Aspirin Regimen) bumetanide 2 mg tablet 2 mg PO DAILY FLUID #90 tabs 07/09/24 12/10/24 Rx hydroxyzine HCl 25 mg tablet 25 mg PO Q6 PRN itch 03/12/1912/10/24 History insulin glargine 100 unit/mL (3 10 unit subcut QPM 12/19 Unknown History mL) subcutaneous pen (Lantus Solostar U-100 Insulin) tadalafil 20 mg tablet 20 mg PO DAILY PRN sexual ac tivity 10/28/24 Unknown History atorvastatin 40 mg tablet 40 mg PO DAILY 12/11/2411/25 History benzonatate 100 mg capsule 100 mg PO TID PRN cough 12/10/24 History metolazone 5 mg tablet 5 mg PO DAILY 12/11/2412/10 History pantoprazole 40 mg tablet,delayed 40 mg PO BID 5 12/10/24 History release trazodone 50 mg tablet 50 mg PO QHS 12/11/24 History vitamin B complex-vitamin C-folic 1 tab PO DAILY 12/1112/10/24 History acid 0.8 mg tablet (Dialyvite 800) Allergy/AdvReac Type Severity Reaction Status Date / Time pregabalin (From Lyrica) Allergy Angioedema Verified 12/11/24 14:17 Family History Father CAD (coronary artery disease) Mother CAD (coronary artery disease) Surgical History History of cataract extraction hx femur surgery Hx of arthroscopy History of open reduction and internal fixation (ORIF) procedure Hx of CABG (~04/12/17) Social History Smoking Status: Former smoker alcohol intake: never substance use type: does not use caffeine: No what type of physical activity do you participate in: none seatbelt use: always do you feel safe at home: Yes ROS ROS ED Constitutional Constitutional ED: Denies chills, fever(s), subjective, sweats or weight loss Eyes Eyes: Denies blurry vision, change in vision or diplopia ENT ENT ED: Reports sore throat; Denies ear pain or rhinorrhea Cardiovascular Cardiovascular: Reports orthopnea; Denies chest pain, palpitations or paroxysmalnocturnal dyspnea Respiratory/Chest Respiratory/Chest: Reports cough, dyspnea, dyspnea on exertion and orthopnea; Denies paroxysmal nocturnal dyspnea or sputum Gastrointestinal Gastrointestinal: Reports nausea and vomiting; Denies abdominal pain, diarrhea or melena Genitourinary Genitourinary ED: Reports other Details: Decreased urine output. ; Denies dysuria, hematuria or urinary frequency Musculoskeletal Musculoskeletal: Denies arthralgias or myalgias Integumentary Reports rash Neurologic Neurologic: Reports weakness; Denies headache(s) or paresthesias Endocrine Endocrinology: Denies cold intolerance or heat intolerance Hematologic/Lymphatic Hematologic/Lymphatic: Reports systems reviewed and no addt'l complaints, exceptas documented EXAM Physical Exam Const Vital Signs: 12/11/24 14:17 Temperature 97.6 F L Temperature Source Oral Pulse Rate 79 Respiratory Rate 18 Blood Pressure 140/98 H Blood Pressure Mean 112 Pulse Ox 97 Oxygen Delivery Method Room Air Positive well nourished and well developed General Appearance ED: well developed and NAD; Negative for cyanotic, diaphoretic or pallor HEENT Reports dry mucous membranes HEENT Narrative: Head is atraumatic normocephalic. Ears normal. Nares patent. Posterior pharynx is normal. Uvula midline. No deviation with protrusion Mouth ED: Yes dry mucous membranes Mouth: dry mucous membranes Eyes PERRL and EOMs intact bilaterally General Eye ED: Negative for pale conjunctiva or scleral icterus Neck no lymphadenopathy, supple and no JVD Chest Wall inspection of chest normal and palpation of chest normal Resp normal respiratory effort Auscultation: rales bilateral base Cardio regular rate, regular rhythm, S1 normal heart sound, S2 normal heart sound and no murmurs GI normal to inspection, nondistended, normoactive bowel sounds, non-tender, non-distended and no masses; Negative for hepatosplenomegaly Palpation: soft Back/Spine no CVA tenderness Extremity Negative for normal to inspection Extremity Narrative: Venous stasis dermatitis. (Mild) General Extremety ED: Yes edema and tenderness General Extremity: edema Neuro oriented x3 and CN's II-XII intact bilaterally Sensorium / Orientation: alert Psych mental status grossly normal Skin no rashes or lesions noted and No skin turgor normal General Skin Exam: Negative for elasticity normal, jaundice or pallor MDM MDM MDM Narrative Medical decision making narrative: Will test for COVID. Will obtain chest x-ray to assess for fluid overload, pneumonia, pleural effusion. CBC to assess white count and H&H. Electrolyte panel to assess for hyperkalemia since he has missed 2 dialysis appointments andhas not been dialyzed since last Sunday. History & Record Review Additional record(s) reviewed:: Prior inpatient record (Inpatient note by internal medicine [facility] physician. Also office visit for dialysis catheter. Discharge note authored by Dr. Delvalle still September 2020.), Prior outpatient record (Seen for vitreal retinal consultation with Dr. Roth on April 2023. Office visit with Dr. Gould for atherosclerotic heart disease.), Prior ED visit and Prior labs Lab Data Attestation: I reviewed the patient's lab results. Lab results narrative: CBC is unremarkable. Rapid antigen for COVID, RSV and influenza are all negative. Labs: Laboratory Results - last 24 hr 12/11/24 14:35 WBC 9.1 RBC 4.01 L Hgb 13.0 Hct 37.2 L MCV 92.8 MCH 32.4 H MCHC 34.9 RDW Std Deviation 56.2 H RDW Coeff of Yuri 17.0 H Plt Count 120 L MPV 10.1 Immature Gran % (Auto) 0.400 Neut % (Auto) 77.3 H Lymph % (Auto) 7.7 L Bucks % (Auto) 13.0 H Eos % (Auto) 0.9 Baso % (Auto) 0.7 Absolute Neuts (auto) 7.0 Absolute Lymphs (auto) 0.70 L Nucleated RBC % 0 Sodium 131 L Potassium 5.9 H Chloride 84 L Carbon Dioxide 21.0 Anion Gap 26 H BUN 124 H* Creatinine 8.04 H* Est GFR (MDRD) Non-Af 7 L BUN/Creatinine Ratio 15.4 Glucose 88 Calcium 10.0 Radiography Chest X-Ray - ED: 2 View, Read by ED Physician (Patient has some mild fluid overload with fluffiness of the hilum and curly B-lines noted. Inspiratory volume is limited. There is no effusion. There is no infiltrate. There is no acute abnormality of the osseous structures. This is a 20 reviewed interpreted by me at 1520.), Heart and Bony Structures Diagnostic Testing: Clinical Impression(s) from Imaging Studies Chest X-Ray 12/11/24 15:10 IMPRESSION: CHF exacerbation. Reading Location: [facility] EKG Initial EKG: Attestation: I personally reviewed and interpreted this EKG as follows: Interpretation: Atrial Fibrillation (Rate is 89. There is evidence of right bundle branch block. QRS duration 162 ms. QT duration 128 ms. Mullen of the right. There is no acute ischemic changes. There is no changes that are concerning for hyperkalemia i.e. peaked T waves. Will need old to determine if this is a new right bundle br) Management Discussion w/another healthcare provider: Hospitalist (Case was discussed with Dr. Granados. Patient will be a full admit to PCU.) Discharge Plan Dx/Rx/DC Orders Clinical Impression: Fluid overload, Pure hypercholesterolemia, Acute uremia, End-stage renal disease on hemodialysis, History of ischemic cardiomyopathy, Acute hyperkalemia,Hyponatremia Disposition Disposition: [facility] What to do if you have Problems For any increased pain, shortness of breath, bleeding, nausea or vomiting, chestpain, or any unexpected problems, contact your Primary Care Provider. Call [facility] ([phone]) or report to the closest Emergency Room. Call 911 if necessary. 12/11/24 1643 <Electronically signed by Rafa Felder MD> Cosigner Signature (if applicable): CC: Dr. Rigoberto Gould MD ~ Signed [facility] Work Phone: [phone] Consult note [facility] Medical Records Department [address] [place] [address] Consultation - Cardiology 12/11/24 175 MR#: [id number] Acct: [id number] Name: QUINONESMAURI L Rep #:[id number] : 1955 69 From: Jensen Claire MD PCP: Dr. Rigoberto Gould MD Status:REG E R Location: ED Assessment & Plan Assessment/Plan (1) Acute hyperkalemia: PLAN: Patient potassium is 5.9. This is up significant from his baseline. He has missed 2 dialysis appointments. Nephrology has been consulted for urgent dialysis. (2) End-stage renal disease on hemodialysis: PLAN: Patient has been on dialysis and has had problems with hypotension during dialysis. He is nowoff of all antihypertensive medical therapy. Will defer tonephrology for further evaluation and treatment of his end-stage renal disease. (3) History of ischemic cardiomyopathy: PLAN: Patient carries a history of an ischemic cardiomyopathy with an ejection fraction of 45% lastevaluated on an echo in 2021. An echo will be repeated on this admission and appropriate medical therapy be recommended pending the outcome of that echocardiogram. We do have significant issues in trying to treat his him with guideline directed medical therapy given his hypotension with dialysis. Historically we have treated him on his off daysand not treated him until after dialysis on the days he received dialysis. Will discuss with nephrology the possibility of adding an SGLT2 inhibitor for treatment of his heart failure. (4) Acute uremia: PLAN: Patient's BUN and creatinine are markedly elevated. He does appear to be mentating normally and alert and oriented x 3. He is able to carry on a normal conversation. Treatment and institution of dialysis to be deferred to nephrology. (5) Paroxysmal atrial fibrillation: PLAN: This is the first time I can find documented he is been in atrial fibrillation. His rate is well-controlled on no rate modulating medical therapy. He does have a remote history of a GI bleed and that his hemoglobin onadmission was 13. I recommend we trial placing him on Eliquis 5 mg twice daily. This is already been instituted in the emergency department. We should stop his aspirin. PLAN: Plan 1. Obtain 2D echocardiogram. 2. Once echo is available we will discuss with the primary service and nephrology about best options for treatment. 3. Would not feel that he will be reverting into sinus rhythm until after his metabolic derangements are corrected. 4. Recommend trialing him on Eliquis 5 mg twice daily. He does have a history of remote GI bleed his hemoglobin is 13 on today's lab work. 5. Currently his rate is well-controlled on no rate modulating drugs. HPI Consult Data Date of Consult: 12/11/24 HPI Narrative Reason for Consultation: New onset atrial fibrillation. HPI Narrative: MAURI QUINONES, is a 69 M who presents with a 5 to 6-day history of a URI typesymptom he denies any fevers or chills but reports that he has been sick and coughing with a nonproductive cough. He missed his last 2 dialysis sessions oneof the second 1 was today. He has noted some increasing dyspneaon exertion andsignificant drop in his appetite. He gets nauseated with any type of attempted oral intake. The patient is diabetic and possibly has gastroparesis. He has missed 2 dialysis sessions inthe past without getting sick like this. The patient's EKG now shows that he is in atrial fibrillation I cannot find an old EKG that demonstrates atrial fibs. His other EKGs have shown sinus rhythm. When he was last evaluated in our office October 2024 he was in a regular rhythm but I did not do an ECG. Currently the patient is resting comfortably but his BUN and creatinine are markedly elevated as his potassium. And he is approximately 20 pounds above hisroutine dry weight. The patient does note that he has had some lower extremity edema but he intermittently has this in the past as well. The dialysis team and his dialysis center have been attempting to diurese him byswitching him to torsemide and metolazone. But he has not had any significant urine output by his report since that change was made last week. Historically the patient has had trouble with dialysis due to hypotension and he has had to hold his Coreg the night before. Once he does this is dialysis has been able artie completed in 3 hours. Most recently his Coreg has been discontinued appropriately. The patient has a history of coronary disease status post bypass graft surgery in 2017 receiving a CARTY to the LAD a vein graft to the OM branch of the circumflex and a vein graft to the right coronary artery. His anginal equivalent was a profound dyspnea on exertion with a hot sensation. He deniesany recurrence of the symptoms denies any chest pain. He does have a history ofan ischemic cardiomyopathy EF is known to be 45% on an echocardiogram in 2021 ithas not been repeated. The patient has been on hemodialysis long-term he also has a history of mild tricuspid digitation mild mitral stenosis and aortic insufficiency. His right ventricular systolic pressure was 49 on that echo in 2021. Is to be admitted to the PCU nephrology is been consulted for urgent dialysis. [facility] Medical History C. difficile diarrhea Anemia History of GI bleed Pure hypercholesterolemia Ischemic cardiomyopathy Essential hypertension Renal insufficiency Ankylosing spondylitis CAD (coronary artery disease) Overweight (BMI 25.0-29.9) Leg edema Leg swelling Acute systolic heart failure Bradycardia Biliary pleural effusion HTN (hypertension) Ventricular tachyarrhythmia Atherosclerosis of [place] coronary artery of [place] heart without angina pectoris Pulmonary HTN Cardiomyopathy Valvular heart disease NSTEMI (non-ST elevated myocardial infarction) CHF (congestive heart failure) Abscess of right foot Diabetes mellitus with neuropathy Gout DM2 (diabetes mellitus, type 2) Home Medications ?Medication ?Instructions ?Recorded ?Last Taken ?Type latanoprost 0.005 % eye drops 1 drp EACH EYE QHS 06/0312/10/24 History melatonin 5 mg tablet 10 mg PO HS PRN Sleep 12/10/24 History loratadine 10 mg capsule 10 mg PO DAILY PRN allergy s ymptoms 10/24/21 12/10/24 History sevelamer carbonate 800 mg tablet 800 mg PO TID 12/10/24 History handicap placcard #1 ea 07/07/22 Unknown Rx aspirin 81 mg tablet,delayed 81 mg PO DAILY #90 tabs 0 04/23/24 12/10/24 Rx release (Adult Aspirin Regimen) bumetanide 2 mg tablet 2 mg PO DAILY FLUID #90 tabs 07/09/24 12/10/24 Rx hydroxyzine HCl 25 mg tablet 25 mg PO Q6 PRN itch 03/0 12/1912/10/24 History insulin glargine 100 unit/mL (3 10 unit subcut QPM 12/19 Unknown History mL) subcutaneous pen (Lantus Solostar U-100 Insulin) tadalafil 20 mg tablet 20 mg PO DAILY PRN sexual ac tivity 10/28/24 Unknown History atorvastatin 40 mg tablet 40 mg PO DAILY 12/11/2411/25 History benzonatate 100 mg capsule 100 mg PO TID PRN cough 12/10/24 History metolazone 5 mg tablet 5 mg PO DAILY 12/11/2412/10 History pantoprazole 40 mg tablet,delayed 40 mg PO BID 5 12/10/24 History release trazodone 50 mg tablet 50 mg PO QHS 12/11/24 History vitamin B complex-vitamin C-folic 1 tab PO DAILY 12/1112/10/24 History acid 0.8 mg tablet (Dialyvite 800) Allergy/AdvReac Type Severity Reaction Status Date / Time pregabalin (From Lyrica) Allergy Angioedema Verified 12/11/24 14:17 Family History Father CAD (coronary artery disease) Mother CAD (coronary artery disease) Surgical History History of cataract extraction hx femur surgery Hx of arthroscopy History of open reduction and internal fixation (ORIF) procedure Hx of CABG (~04/12/17) Social History household members: spouse Smoking Status: Former smoker alcohol intake: never substance use type: does not use caffeine: No what type of physical activity do you participate in: none seatbelt use: always do you feel safe at home: Yes ROS Constitutional Constitutional: Reports as per HPI Eyes Eyes: Reports systems reviewed and no addt'l complaints, except as documented ENT HEENT: Reports systems reviewed and no addt'l complaints, except as documented Cardiovascular Cardiovascular: Reports as per HPI Respiratory/Chest Respiratory/Chest: Reports as per HPI Gastrointestinal Gastrointestinal: Reports as per HPI Genitourinary Genitourinary: Reports as per HPI Musculoskeletal Musculoskeletal: Reports as per HPI Integumentary Integumentary: Reports systems reviewed and no addt'l complaints, except as documented Neurologic Neurologic: Reports systems reviewed and no addt'l complaints, except as documented Psychiatric Psychiatric: Reports systems reviewed and no addt'l complaints, except as documented Endocrine Endocrinology: Reports as per HPI Hematologic/Lymphatic Hematologic/Lymphatic: Reports as per HPI Allergic/Immunologic Allergic/Immunologic: Reports systems reviewed and no addt'l complaints, except as documented Physical Exam Const alert and oriented x3 HEENT normocephalic Eyes EOMs intact bilaterally Neck supple Carotids: Negative for bruit Chest Chest: midline sternotomy incision Resp normal respiratory effort Auscultation: crackles bilateral lower and 1/2 way up and diminished lung soundsbilateral lower Cardio Cardio Narrative: Functioning fistula in his left upper arm. Rate: regular rate Rhythm: abnormal rhythm irregularly irregular Heart Sounds: S1 normal, S2 normal and murmur systolic II/ blowing mid right sternal border; Negative for click or gallop GI soft to palpation Extremity General Extremity: edema bilateral lower extremity Details: mild Neuro Neuro Narrative: Alert and oriented x 3 Risk Stratification Risk Stratification Applicable: No Charges/Coding Visit Charges Inpatient E&M: 93743 Init Hosp L3 Objective Data Vital Signs: Vital Signs Temp Pulse Resp BP Pulse Ox O2 Del Method 97.6 F L 76 20 H 97/71 93 Room Air 12/11/24 14:17 12/11/24 16:16 12/11/24 16:16 12/11/24 16:16 12/11/24 16:16 12/11/24 16:16 Oxygen Delivery Method Room Air Lab / Micro Data Attestation: I reviewed the patient's lab results. 12/11/24 14:35 12/11/24 14:35 Labs: Laboratory Results - last 24 hr 12/11/24 14:35: WBC 9.1, RBC 4.01 L, Hgb 13.0, Hct 37.2 L, MCV 92.8, MCH 32.4 H,MCHC 34.9, RDW Std Deviation 56.2 H, RDW Coeff of Yuri 17.0 H, Plt Count 120 L, MPV 10.1, Immature Gran % (Auto) 0.400, Neut % (Auto) 77.3 H, Lymph % (Auto) 7.7L, Bucks % (Auto) 13.0 H, Eos % (Auto) 0.9, Baso % (Auto) 0.7, Absolute Neuts (auto) 7.0, Absolute Lymphs (auto) 0.70 L, Nucleated RBC % 0, Sodium 131 L, Potassium 5.9 H, Chloride 84 L, Carbon Dioxide 21.0, Anion Gap 26 H, BUN 124 H*, Creatinine 8.04 H*, Est GFR (MDRD) Non-Af 7 L, BUN/Creatinine Ratio 15.4, Glucose 88, Calcium 10.0 Micro: Microbiology 12/11/24 14:42 Mucosa - Nose SARS-CoV-2, Influenza & RSV (PCR) - Final Rhythm Strip Rhythm Strip: A-fib Rate: 90 Cardiology Labs/Tests 12/11/24 14:35: WBC 9.1, RBC 4.01 L, Hgb 13.0, Hct 37.2 L, MCV 92.8, MCH 32.4 H,MCHC 34.9, Plt Count 120 L, MPV 10.1, Immature Gran % (Auto) 0.400, Neut % (Auto) 77.3 H, Lymph % (Auto) 7.7 L, Bucks % (Auto) 13.0 H, Eos % (Auto) 0.9, Baso % (Auto) 0.7, Absolute Neuts (auto) 7.0, Nucleated RBC % 0, Sodium 131 L, Potassium 5.9 H, Chloride 84 L, Carbon Dioxide 21.0, Anion Gap 26 H, BUN 124 H*, Creatinine 8.04 H*, Est GFR (MDRD) Non-Af 7 L, BUN/Creatinine Ratio 15.4, Glucose 88, Calcium 10.0 Rhythm: EKG: ECHO: Stress Test: Cardiac Cath: PCI: CT Surgery: Holter monitor: EPS: PPM: CXR: Chest CT Scan: Radiography Diagnostic Testing: Radiology Impression Chest X-Ray 12/11/24 15:10 IMPRESSION: CHF exacerbation. Reading Location: [facility] 12/11/24 181 Cosigner Signature (if applicable): CC: Dr. Rigoberto Gould MD~ Signed [facility]04-17-2025 History and physical note [facility] Medical Records Department [address] [place] [address] H&P Exam - Hospitalist 12/11/24 1652 MR#: [id number] Acct: [id number] Name: MAURI QUINONES Farhana Rep #:[id number] : 1955 69 From: Mary Jo Granados MD PCP: Dr. Rigoberto Gould MD Status:REG E R Location: ED HPI - General General Date of Admission: 12/11/24 Date of Service: 12/11/24 Chief Complaint: Missed HD x 2, fatigue, malaise, N/V, dyspnea, increased edema/weight gain/orthopnea, cough. HPI Narrative The patient is a 69 y/o M w/ PMHx: Diabetes mellitus type II, HTN, HLD, HFrEF/ischemic cardiomyopathy, CAD, Pulmonary HTN, Ankylosing spondylitis, GERD w/ Hx GI bleed, Hx C. difficile diarrhea/colitis, ESRD on HD, Valvular Heart Disease, CAD status post CABG, Former tobacco use who presents to the [facility] ED on 12/11/24 with history of recently missing 2 sessions of HD and following then onset of reported URI type symptoms including mild dyspnea, worse with exertion,cough, sore throat with fatigue, malaise and persistent nausea and emesis noted to be waxing and waning with poor oral intake and decreased urine output as he notes he still makes urine with chronic stable orthopnea as well as chronic distal lower extremity swelling and pain with no recent fevers or chills nor anyassociated abdominal pain nor any abnormal looking emesis but given inability tomaintain appropriate oral intake and GI losses prompted ED evaluation. He notesin the past when he has been sick and missed 2 dialysis sess ions he is never hadthe issues he is having currently. He reports significant recent issues managing dry weight and notes that cardiology has altered his medications with recent addition of metolazone. He notes that he was also recently taken off of his beta-rufus therapy secondary to issues withlow blood pressure with dialysis. Workup in the ED included T97.6, heart rate 79, BP 140/98, respiratory rate 18, 97% room air, CBC with WBC 9.1, hemoglobin 13, platelet 120with lymphopenia, BMP withsodium 131, potassium 5.9, chloride 84, chest x-ray with congestion, EKG with atrial fibrillation rate controlled with no acute evidence of ischemia and no concern for peaked T waves. [facility] Medical History C. difficile diarrhea Anemia History of GI bleed Pure hypercholesterolemia Ischemic cardiomyopathy Essential hypertension Renal insufficiency Ankylosing spondylitis CAD (coronary artery disease) Overweight (BMI 25.0-29.9) Leg edema Leg swelling Acute systolic heart failure Bradycardia Biliary pleural effusion HTN (hypertension) Ventricular tachyarrhythmia Atherosclerosis of [place] coronary artery of [place] heart without angina pectoris Pulmonary HTN Cardiomyopathy Valvular heart disease NSTEMI (non-ST elevated myocardial infarction) CHF (congestive heart failure) Abscess of right foot Diabetes mellitus with neuropathy Gout DM2 (diabetes mellitus, type 2) Home Medications ?Medication ?Instructions ?Recorded ?Last Taken ?Type latanoprost 0.005 % eye drops 1 drp EACH EYE QHS 06/0312/10/24 History melatonin 5 mg tablet 10 mg PO HS PRN Sleep 12/10/24 History loratadine 10 mg capsule 10 mg PO DAILY PRN allergy s ymptoms 10/24/21 12/10/24 History sevelamer carbonate 800 mg tablet 800 mg PO TID 12/10/24 History handicap placcard #1 ea 07/07/22 Unknown Rx aspirin 81 mg tablet,delayed 81 mg PO DAILY #90 tabs 0 04/23/24 12/10/24 Rx release (Adult Aspirin Regimen) bumetanide 2 mg tablet 2 mg PO DAILY FLUID #90 tabs 07/09/24 12/10/24 Rx hydroxyzine HCl 25 mg tablet 25 mg PO Q6 PRN itch 03/12/1912/10/24 History insulin glargine 100 unit/mL (3 10 unit subcut QPM 12/19 Unknown History mL) subcutaneous pen (Lantus Solostar U-100 Insulin) tadalafil 20 mg tablet 20 mg PO DAILY PRN sexual ac tivity 10/28/24 Unknown History atorvastatin 40 mg tablet 40 mg PO DAILY 12/11/2411/25 History benzonatate 100 mg capsule 100 mg PO TID PRN cough 12/10/24 History metolazone 5 mg tablet 5 mg PO DAILY 12/11/2412/10 History pantoprazole 40 mg tablet,delayed 40 mg PO BID 5 12/10/24 History release trazodone 50 mg tablet 50 mg PO QHS 12/11/24 History vitamin B complex-vitamin C-folic 1 tab PO DAILY 12/1112/10/24 History acid 0.8 mg tablet (Dialyvite 800) Allergy/AdvReac Type Severity Reaction Status Date / Time pregabalin (From Lyrica) Allergy Angioedema Verified 12/11/24 14:17 Family History Father CAD (coronary artery disease) Mother CAD (coronary artery disease) Surgical History History of cataract extraction hx femur surgery Hx of arthroscopy History of open reduction and internal fixation (ORIF) procedure Hx of CABG (~04/12/17) Social History (Updated 12/11/24 @ 17:[address] Mary Jo Granados MD) household members: spouse Smoking Status: Former smoker alcohol intake: never substance use type: does not use caffeine: No what type of physical activity do you participate in: none seatbelt use: always do you feel safe at home: Yes ROS ROS Narrative Admission Review of Systems: CONSTITUTIONAL: No weight loss, fever, chills, + weakness or fatigue. HEENT: + Sore throat, congestion, rhinorrhea. Eyes: No visual loss, blurred vision, double vision or yellow sclerae. Ears, Nose, Throat: No hearing loss, sneezing. SKIN: No rash or itching, lesions, wounds. CARDIOVASCULAR: + Chronic distal edema, orthopnea. No chest pain, chest pressure or chest discomfort, palpitations, syncopal events. RESPIRATORY: + Dyspnea, worse with exertion, cough not markedly productive. No wheezing, hemoptysis. GASTROINTESTINAL: + Anorexia/lack of appetite, nausea, vomiting. No diarrhea, abdominal pain, melena, BRBPR. GENITOURINARY: + Decreased urine output. No dysuria, frequency, urgency or retention. NEUROLOGICAL: No headache, dizziness, syncope, paralysis, ataxia, numbness or tingling in the extremities, focal weakness, change in bowel or bladder control,seizure. MUSCULOSKELETAL: + muscle, back pain, joint pain or stiffness. HEMATOLOGIC: + Chronic anemia, easy bleeding/bruising. LYMPHATICS: No enlarged nodes. No history of splenectomy. PSYCHIATRIC: No history of depression or anxiety. ENDOCRINOLOGIC: + reports of sweating, cold or heat intolerance. No polyuria or polydipsia. ALLERGIES: No history of asthma, hives, eczema or rhinitis. Vital Signs Vital Signs Vital Signs: 12/11/24 14:17 Temperature 97.6 F L Temperature Source Oral Pulse Rate 79 Respiratory Rate 18 Blood Pressure 140/98 H Blood Pressure Mean 112 Pulse Ox 97 Oxygen Delivery Method Room Air Physical Exam Narrative Physical Examination: General: Awake, alert, oriented x 3 and cooperative, seated upright in the ED bed, mildly altered speech secondary to not having dentures in place. Skin: Normal color, normal turgor, no icterus, no cyanosis except very stage ecchymoses, abrasion, bilateral lower extremity venous stasis skin changes. HEENT: AT/NC, EOMI, PERRLA, MMM, no carotid bruits, + JVD noted. Lungs: Diminished, greater bases, mildly increased respiratory rate but no distress, rales/cracklesbilaterally especially posteriorly, no rhonchi or wheezing. Heart: Irregular, rate controlled; no gallop, rub audible, + SM Abdomen: Soft, NTTP, ND, distant normal BS, no appreciated HSM. Extremities: No cyanosis, no clubbing, pedal to proximal nieto 2+ pitting edema, left upper extremity with + thrill. Neurological: Patient awake, alert, oriented as noted, cognitive function intact; pupils equally reactive to light and accommodation, cranial nerves grossnormal, moving all 4 extremities, no focal deficits, strength moderately to severely globally decreased secondary to acute presentation. Psychiatric: Affect appears fatigued, no acute evidence of depressive or anxietyfeelings. Results Lab / Micro Data 12/11/24 14:35 12/11/24 14:35 Labs: Laboratory Results - last 24 hr 12/11/24 14:35: WBC 9.1, RBC 4.01 L, Hgb 13.0, Hct 37.2 L, MCV 92.8, MCH 32.4 H,MCHC 34.9, RDW Std Deviation 56.2 H, RDW Coeff of Yuri 17.0 H, Plt Count 120 L, MPV 10.1, Immature Gran % (Auto) 0.400, Neut % (Auto) 77.3 H, Lymph % (Auto) 7.7L, Bucks % (Auto) 13.0 H, Eos % (Auto) 0.9, Baso % (Auto) 0.7, Absolute Neuts (auto) 7.0, Absolute Lymphs (auto) 0.70 L, Nucleated RBC % 0, Sodium 131 L, Potassium 5.9 H, Chloride 84 L, Carbon Dioxide 21.0, Anion Gap 26 H, BUN 124 H*, Creatinine 8.04 H*, Est GFR (MDRD) Non-Af 7 L, BUN/Creatinine Ratio 15.4, Glucose 88, Calcium 10.0 Micro: Microbiology 12/11/24 14:42 Mucosa - Nose SARS-CoV-2, Influenza & RSV (PCR) - Final Imaging Radiology Impression Chest X-Ray 12/11/24 15:10 IMPRESSION: CHF exacerbation. Reading Location: [facility] Assessment & Plan Assessment/Plan (1) Acute hyperkalemia: (2) Hyponatremia: (3) Fluid overload: (4) Acute uremia: PLAN: Plan The patient is a 69 y/o M w/ PMHx: Diabetes mellitus type II, HTN, HLD, HFrEF/ischemic cardiomyopathy, CAD, Pulmonary HTN, Ankylosing spondylitis, GERD w/ Hx GI bleed, Hx C. difficile diarrhea/colitis, ESRD on HD, Valvular Heart Disease, CAD status post CABG, Former tobacco use who presents to the [facility] ED on 12/11/24 with history of recently missing 2 sessions of HD and following then onset of reported URI type symptoms including mild dyspnea, worse with exertion,cough, sore throat with fatigue, malaise and persistent nausea and emesis noted to be waxing and waning with poor oral intake and decreased urine output as he notes he still makes urine with chronic stable orthopnea as well as chronic distal lower extremity swelling and pain with no recent fevers or chills nor anyassociated abdominal pain nor any abnormal looking emesis but given inability tomaintain appropriate oral intake and GI losses prompted ED evaluation. #1. Acute Decompensated HFrEF/ischemic cardiomyopathy suspected secondary to primarily missing dialysis x 2 sessions, complicated by onset of intractable nausea and emesis possibly because of uremia:Will admit to PCU, maintain on cardiac telemetry, monitor I/Os, maintain on intake restriction, ECHO requested as none noted since 2021, IV laxis until HD available, nephrology consulted for dialysispreferentially today, continue medical therapy, magnesium level requested, place neck vanessa wraps bilateral lower extremity elevation. Given recent significant difficulties with managing patient dry weight per discussion with patient and family will request cardiology involvement. Given recent significant issues with hypotension especially with dialysis and current dialysis needs will initiate on midodrine as well. #2. Acute kidney injury on ESRD on HD, secondary to uremia and GI losses: Admission BUN/Cr 124/8.04, GFR 7, prior baseline creatinine noted to be primarily 4.2-4.3 however this was in 2021 thus it isuncertain exactly what range he has been recently. Given presentation with missed dialysis and anjana rnfor volume overload will avoid aggressive hydration, GI losses potentially secondary to uremia, nephrology consulted and preferentially would be dialyzed on day of admission. Avoiding aggressive hydration given concern for overload. #3. Hyperkalemia: Admission potassium 5.9 in the setting of acute kidney injury, will continue hyperkalemic protocol with initiation of insulin, dextrose, albuterol, Kayexalate with serial repeat BMPuntil clinically assured improvement, maintain on telemetry. Nephrology consulted for dialysis as noted. #4. Acute hyponatremia, hypochloremia, unfortunately it appears he is volume overloaded thus could be a component of hypervolemia but also he has been stating intractable nausea and emesis but certainly has some GI loss component: Admission sodium 131, chloride 84, given overload concerns avoiding aggressive hydration, nephrology consulted for preferentially dialysis on day of presentation. #5. Acute thrombocytopenia, possibly reactive given acute presentation with questionable concurrentURI in addition to as noted above: Admission platelet 120, baseline previously normal, most recently however labs from 2021, will continue to trend CBC. #6. Possible Acute viral syndrome suspected: Complicates presentation, potentially could be symptoms primarily secondary to missing dialysis x 2 but uncertain, rapid SARS COVID/influenza/RSV negative, will obtain full respiratoryviral panel, sputum Cx, procalcitonin, treat conservatively with as needed regimen for cough, congestion. #7. Paroxysmal atrial fibrillation, new onset, rate controlled: EKG in ED w/ atrial fibrillation, rate controlled in the ED and patient and deny historynotes not any other records from the cardiology office also. Will maintain on telemetry, obtain magnesium level, obtain ECHO, obtain TSH level. CHADs scoring appropriate for anticoagulation start, will add Eliquis. #8. CAD: Status post CABG (S/P surgery with CARTY to LAD, SVG to OM system, and SVG to PDA in March2017 at [facility]), if able to tolerate will continue aspirin, statin, Coreg regimen, not on VANESSA/ARB with underlying renal disease as noted. #9. Diabetes mellitus type II: Hold oral home regimen, continue home insulin regimen however pending blood sugar assessments given clear liquids at this timegiven nausea and emesis bouts may considerone half dose or holding of hypoglycemia concern, maintained on every 6 hours accu checks w/ ISS. #10. PAF: Patient with EKG with atrial fibrillation rate controlled, will continue Coreg, per current list is not chronically anticoagulated. #11. GERD, history of GI bleed: Will maintain on IV PPI given intractable nausea and emesis until improving. #12. Pulmonary hypertension: Complicates presentation, per records appears he is only on tadalafil and is listed as needed but clarifying to be certain. #13. Hypertension: Continue home regimen including hydralazine, doxazosin, Coreg, PRN hydralazine. Also normally on bumetanide and metolazone, given overload appearance if necessary may consider pulsed dosing with IV regimen however given his significant acute kidney injury on chronic with dialysis needspreferentially would wait until dialysis performed before readdition of these medications especially given ongoing GI losses. #14. Hyperlipidemia: Will continue patient on statin therapy. #15. Valvular heart disease: Remote echo noted from 04/25/2022 from outside facility with mildly dilated LV, moderate LV hypertrophy, LV systolic function mildly decreased with EF 45? percent, grade 2LV diastolic dysfunction, RV moderately dilated, RV systolic function moderately decreased, mildly dilated LAand RA, moderate 2+ TVR, RVSP 49 mmHg consistent with moderate pulmonary hypertension, mild mitral stenosis due to moderate MAC, mild PI, mild AI, apicalanterior lateral, mid anterolateral, mid inferior septal hypokinesis. Echocardiogram requested as noted above. #16. Former tobacco use: Encourage continued tobacco cessation. #17. Allergic rhinitis: Continue patient home loratadine regimen. #18. DVT prophylaxis: Starting on Eliquis as noted. #18 CODE status: Patient HCPOA and living will are not in place but his whois present would behis medical decision-maker if necessary he notes. Discussed CODE status at length including difference between FULL code, DNR-CCA and DNR-CCstatus. Following discussions about the differences in these status, requested DNR-CCA, no intubation status. Advanced Care Planning Face to Face Time: 16 minutes. Charges/Coding Visit Charges Inpatient E&M: 89098 Init Hosp L3 Procedures Hospitalists Procedures: 84305 Advncd Care Plan 30 Min 12/11/24 2772 Cosigner Signature (if applicable): CC: Dr. Mary Jo Granados MD; Dr. Rigoberto Gould MD~ Signed [facility]04-17-2025 Discharge summary [facility] Medical Records Department [address] [place] [address] Emergency Department Summary 12/11/24 MR#: [id number] Acct: [id number] Name: MAURI QUINONES Rep #:[id number] : 1955 69 From: Rafa Felder MD PCP: Dr. Rigoberto Gould MD Status:REG E R Location: ED HPI History of Present Illness Chief Complaint: Nausea/Vomiting Detail of Chief Complaint: Upper respiratory symptoms, nausea vomiting generalized weak Informant: patient and spouse/S.O. Onset/Context/Timing Onset: Days (Symptoms started day he missed his dialysis, December 09) Context: Sudden Onset Timing: Continuous and Waxes and wanes Quality: General weakness, respiratory symptoms, nausea vomiting Location: Vague generalized Current Severity: Mild Maximum Severity: Moderate Worsened by: Nothing Relieved by: Nothing Associated Symptoms Associated Symptoms: Poor p.o. intake, decreased urine output Narrative Narrative: Patient is a 69-year-old male when I entered the room he and his significant other told me that thedialysis unit wants him tested for COVID. Attempted to ask questions and again I was informed he needs to be tested for COVID. Patient has not felt well since December 09. He did not go to dialysis onTuesday and did not go to his dialysis appointment today. He has chronic stableorthopnea. He also has pain in his right lower extremity that limits how flat he can lie. He does endorse swelling of his lower extremities. He denies fever, chills night sweats. He denies headache, double vision blurredvision loss of vision. Denies ear pain, ear drainage or ringing in his ears. He does endorse mild nasal congestion. He does endorse mild throat discomfort with coughing. His cough is nonproductive. He does endorse some mild dyspnea with activity. He denies PND. He denies chest discomfort. He denies abdominal pain. He does have nausea and vomiting. He denies hematemesis or coffee-ground emesis. He denies black or maroon-colored stool. His lower extremity exam are swollen compared to normal. He also has some slight discoloration. He denies history of DVT. Prior similar symptoms: Yes Recent Illness/Hospitalization: No PFSH PFSH Medical History C. difficile diarrhea Anemia History of GI bleed Pure hypercholesterolemia Ischemic cardiomyopathy Essential hypertension Renal insufficiency Ankylosing spondylitis CAD (coronary artery disease) Overweight (BMI 25.0-29.9) Leg edema Leg swelling Acute systolic heart failure Bradycardia Biliary pleural effusion HTN (hypertension) Ventricular tachyarrhythmia Atherosclerosis of [place] coronary artery of [place] heart without angina pectoris Pulmonary HTN Cardiomyopathy Valvular heart disease NSTEMI (non-ST elevated myocardial infarction) CHF (congestive heart failure) Abscess of right foot Diabetes mellitus with neuropathy Gout DM2 (diabetes mellitus, type 2) Home Medications ?Medication ?Instructions ?Recorded ?Last Taken ?Type latanoprost 0.005 % eye drops 1 drp EACH EYE QHS 06/0312/10/24 History melatonin 5 mg tablet 10 mg PO HS PRN Sleep 12/10/24 History loratadine 10 mg capsule 10 mg PO DAILY PRN allergy s ymptoms 10/24/21 12/10/24 History sevelamer carbonate 800 mg tablet 800 mg PO TID 12/10/24 History handicap placcard #1 ea 07/07/22 Unknown Rx aspirin 81 mg tablet,delayed 81 mg PO DAILY #90 tabs 0 04/23/24 12/10/24 Rx release (Adult Aspirin Regimen) bumetanide 2 mg tablet 2 mg PO DAILY FLUID #90 tabs 07/09/24 12/10/24 Rx hydroxyzine HCl 25 mg tablet 25 mg PO Q6 PRN itch 03/12/1912/10/24 History insulin glargine 100 unit/mL (3 10 unit subcut QPM 12/19 Unknown History mL) subcutaneous pen (Lantus Solostar U-100 Insulin) tadalafil 20 mg tablet 20 mg PO DAILY PRN sexual ac tivity 10/28/24 Unknown History atorvastatin 40 mg tablet 40 mg PO DAILY 12/11/24 04/02/18 History benzonatate 100 mg capsule 100 mg PO TID PRN cough 12/10/24 History metolazone 5 mg tablet 5 mg PO DAILY 12/11/2412/10 History pantoprazole 40 mg tablet,delayed 40 mg PO BID 5 12/10/24 History release trazodone 50 mg tablet 50 mg PO QHS 12/11/24 History vitamin B complex-vitamin C-folic 1 tab PO DAILY 12/1112/10/24 History acid 0.8 mg tablet (Dialyvite 800) Allergy/AdvReac Type Severity Reaction Status Date / Time pregabalin (From Lyrica) Allergy Angioedema Verified 12/11/24 14:17 Family History Father CAD (coronary artery disease) Mother CAD (coronary artery disease) Surgical History History of cataract extraction hx femur surgery Hx of arthroscopy History of open reduction and internal fixation (ORIF) procedure Hx of CABG (~04/12/17) Social History Smoking Status: Former smoker alcohol intake: never substance use type: does not use caffeine: No what type of physical activity do you participate in: none seatbelt use: always do you feel safe at home: Yes ROS ROS ED Constitutional Constitutional ED: Denies chills, fever(s), subjective, sweats or weight loss Eyes Eyes: Denies blurry vision, change in vision or diplopia ENT ENT ED: Reports sore throat; Denies ear pain or rhinorrhea Cardiovascular Cardiovascular: Reports orthopnea; Denies chest pain, palpitations or paroxysmalnocturnal dyspnea Respiratory/Chest Respiratory/Chest: Reports cough, dyspnea, dyspnea on exertion and orthopnea; Denies paroxysmal nocturnal dyspnea or sputum Gastrointestinal Gastrointestinal: Reports nausea and vomiting; Denies abdominal pain, diarrhea or melena Genitourinary Genitourinary ED: Reports other Details: Decreased urine output. ; Denies dysuria, hematuria or urinary frequency Musculoskeletal Musculoskeletal: Denies arthralgias or myalgias Integumentary Reports rash Neurologic Neurologic: Reports weakness; Denies headache(s) or paresthesias Endocrine Endocrinology: Denies cold intolerance or heat intolerance Hematologic/Lymphatic Hematologic/Lymphatic: Reports systems reviewed and no addt'l complaints, exceptas documented EXAM Physical Exam Const Vital Signs: 12/11/24 14:17 Temperature 97.6 F L Temperature Source Oral Pulse Rate 79 Respiratory Rate 18 Blood Pressure 140/98 H Blood Pressure Mean 112 Pulse Ox 97 Oxygen Delivery Method Room Air Positive well nourished and well developed General Appearance ED: well developed and NAD; Negative for cyanotic, diaphoretic or pallor HEENT Reports dry mucous membranes HEENT Narrative: Head is atraumatic normocephalic. Ears normal. Nares patent. Posterior pharynx is normal. Uvula midline. No deviation with protrusion Mouth ED: Yes dry mucous membranes Mouth: dry mucous membranes Eyes PERRL and EOMs intact bilaterally General Eye ED: Negative for pale conjunctiva or scleral icterus Neck no lymphadenopathy, supple and no JVD Chest Wall inspection of chest normal and palpation of chest normal Resp normal respiratory effort Auscultation: rales bilateral base Cardio regular rate, regular rhythm, S1 normal heart sound, S2 normal heart sound and no murmurs GI normal to inspection, nondistended, normoactive bowel sounds, non-tender, non- distended and no masses; Negative for hepatosplenomegaly Palpation: soft Back/Spine no CVA tenderness Extremity Negative for normal to inspection Extremity Narrative: Venous stasis dermatitis. (Mild) General Extremety ED: Yes edema and tenderness General Extremity: edema Neuro oriented x3 and CN's II-XII intact bilaterally Sensorium / Orientation: alert Psych mental status grossly normal Skin no rashes or lesions noted and No skin turgor normal General Skin Exam: Negative for elasticity normal, jaundice or pallor MDM MDM MDM Narrative Medical decision making narrative: Will test for COVID. Will obtain chest x-ray to assess for fluid overload, pneumonia, pleural effusion. CBC to assess white count and H&H. Electrolyte panel to assess for hyperkalemia since he has missed 2 dialysis appointments andhas not been dialyzed since last Sunday. History & Record Review Additional record(s) reviewed:: Prior inpatient record (Inpatient note by internal medicine [facility] physician. Also office visit for dialysis catheter. Discharge note authored by Dr. Adelia barrientos September2020.), Prior outpatient record (Seen for vitreal retinal consultation with Dr. Roth on April2023. Office visit with Dr. Gould for atherosclerotic heart disease.), Prior ED visit and Prior labs Lab Data Attestation: I reviewed the patient's lab results. Lab results narrative: CBC is unremarkable. Rapid antigen for COVID, RSV and influenza are all negative. Labs: Laboratory Results - last 24 hr 12/11/24 14:35 WBC 9.1 RBC 4.01 L Hgb 13.0 Hct 37.2 L MCV 92.8 MCH 32.4 H MCHC 34.9 RDW Std Deviation 56.2 H RDW Coeff of Yuri 17.0 H Plt Count 120 L MPV 10.1 Immature Gran % (Auto) 0.400 Neut % (Auto) 77.3 H Lymph % (Auto) 7.7 L Bucks % (Auto) 13.0 H Eos % (Auto) 0.9 Baso % (Auto) 0.7 Absolute Neuts (auto) 7.0 Absolute Lymphs (auto) 0.70 L Nucleated RBC % 0 Sodium 131 L Potassium 5.9 H Chloride 84 L Carbon Dioxide 21.0 Anion Gap 26 H BUN 124 H* Creatinine 8.04 H* Est GFR (MDRD) Non-Af 7 L BUN/Creatinine Ratio 15.4 Glucose 88 Calcium 10.0 Radiography Chest X-Ray - ED: 2 View, Read by ED Physician (Patient has some mild fluid overload with fluffiness of the hilum and curly B-lines noted. Inspiratory volume is limited. There is no effusion. There is no infiltrate. There is no acute abnormality of the osseous structures. This is a 20 reviewed interpreted by nc at 1520.), Heart and Bony Structures Diagnostic Testing: Clinical Impression(s) from Imaging Studies Chest X-Ray 12/11/24 15:10 IMPRESSION: CHF exacerbation. Reading Location: [facility] EKG Initial EKG: Attestation: I personally reviewed and interpreted this EKG as follows: Interpretation: Atrial Fibrillation (Rate is 89. There is evidence of right bundle branch block. QRS duration 162 ms. QT duration 128 ms. Mullen of the right. There is no acute ischemic changes. There is no changes that are concerning for hyperkalemia i.e. peaked T waves. Will need old to determine if this is a new right bundle br) Management Discussion w/another healthcare provider: Hospitalist (Case was discussed with Dr. Granados. Patient will be a full admit to PCU.) Discharge Plan Dx/Rx/DC Orders Clinical Impression: Fluid overload, Pure hypercholesterolemia, Acute uremia, End-stage renal disease on hemodialysis, History of ischemic cardiomyopathy, Acute hyperkalemia,Hyponatremia Disposition Disposition: Acute Care Hospital [facility] What to do if you have Problems For any increased pain, shortness of breath, bleeding, nausea or vomiting, chestpain, or any unexpected problems, contact your Primary Care Provider. Call [facility] ([phone]) or report tothe closest Emergency Room. Call 911 if necessary. 12/11/24 1643 Cosigner Signature (if applicable): CC: Dr. Rigoberto Gould MD ~ Signed [facility]04-17-2025 Radiology Diagnostic study note [facility] Imaging Services [address] [place] [address] Chest PA and Lateral MR#: [id number] Acct: [id number] Name: MAURI QUINONES Rep #: [id number] : 1955 M 69 From: Breonna Davis MD PCP: Dr. Rigoberto Gould MD Status: REG E R Study:Chest PA and Lateral Date of Exam: 12/11/24 Exam# [id number] Ordering Dr: Crys Felder MD PROCEDURE: CHEST PA AND LATERAL 12/11/2024 REASON FOR EXAM: COUGH AND SHORTNESS OF BREATH, HISTORY OF CHF TECHNIQUE: Frontal and lateral views of the chest. COMPARISON: None FINDINGS: Hardware: Sternotomy wires are present. Heart: Heart size is mildly enlarged. CABG. Mediastinum: Prominent pulmonary vessels and epicardial fat. Lungs: Bilateral lower lung peripheral septal thickening. No focal consolidation or pleural effusion. RAD/Chest PA and Lateral IMPRESSION: CHF exacerbation. Reading Location: [facility]- CC: Dr. Rafa Felder MD; Dr. Rigoberto Gould MD ~ Crts: Signed [facility]04-11-2025 Instructions* Patient Instructions* Alexus Mendez APRN.[employer] - 12/05/2024 1:40 PM EDT 1) Trazodone 50 mg 30 min before bed, dose can be cut in half or increased if we need to 2) Holding Lantus 3) See Dr. Gould 12/29/24 as scheduled 4) Benzonatate 100 mg 3 x day as needed for cough documented [facility] NoteHNO ID: [id number] Author: ALEXUS MENDEZ APRN.CNP Service: ? Author Type: Nurse Practitioner Type: Progress Notes Filed: 12/05/2024 13:45 Note Text: This is a 69 year old male who presents today with: Patient presents with: Follow Up HISTORY OF PRESENT ILLNESS: Mauri Quinones is a 69 year old male. Patient presents with: Follow Up Cough is getting better. Having trouble sleeping at night- takes 2 melatonin and wakes up an hour Tired. No H/A No fever or chills Always body aches No SOB BSS running 119- 131, not taking lantus PAST MEDICAL HISTORY: PAST MEDICAL HISTORY Diagnosis Date Acute on chronic diastolic congestive heart failure (HCC) 07/14/2018 [facility] (acute kidney injury) 03/24/2019 [facility] (acute kidney injury) 03/24/2019 Ankylosing spondylitis ([facility]) CAD (coronary artery disease) Cellulitis Chronic combined systolic and diastolic CHF (congestive heart failure) ([facility]) 03/24/2019 CKD (chronic kidney disease) stage 3, GFR 30-59 ml/min ([facility]) 03/24/2019 Constipation Diabetes ([facility]) Gout High phosphate levels 03/24/2019 History of coronary artery bypass graft 04/18/2019 04/10/17 CARTY to LAD, SVG to PDA, SVG to OM Hx of fracture multiple bones Hyperkalemia 03/24/2019 Hypoalbuminemia 03/24/2019 Hyponatremia 03/24/2019 Hypoxia 03/24/2019 Ischemic cardiomyopathy 04/18/2019 Echocardiogram 01/10/19 Dr. Nunez: Dilated left ventricle, left ventricular ejection fraction 40%, mild to moderate systolic dysfunction, moderate concentric LVH, dilated left and right atria. Mild mitral valve thickening with papillary muscle dysfunction, mild mitral valve insufficiency, tricuspid valve insufficiency, aortic valve insufficiency, pulmonic valve insufficiency. Aortic valve calcifi NSTEMI (non-ST elevated myocardial infarction) (HCC) 03/12/2017 [facility] admit Osteoarthritis Transition of care performed with sharing of clinical summary 04/08/2019 Admit [facility] 03/21/19-03/22/19 Discharge diagnoses chronic kidney disease with worsening creatinine, acute kidney injury Hypokalemia Toxic encephalopathy secondary to Flexeril overusage Type 2 diabetes Ischemic cardiomyopathy Coronary artery disease Ligamental cervical neck strain and acute Pulmonary hypertension Hypertension Pyuria Preadmit: to [facility] ED with slurred speech, lethargy. PAST SURGICAL HISTORY Procedure Laterality Date ARTHRP ACETBLR/PROX FEM PROSTC AGRFT/ALGRFT Right 2019 Dr Peguero CORONARY ARTERY BYPASS GRAFT 04/12/2017 x 3 FEMUR RIGHT OP SURGERY Right Repair of fracture with hardward HIP SURGERY HX Right pin KNEE ARTHROSCOPY Left x2 KNEE SURGERY HX Right TKR, right, arthoscopy x3 PAST SURGICAL HISTORY OF 09/07/2017 08/15/17 fx radius in 2 places; plate and screws.Plate and screws 09/07/17 [facility] TOE SURGERY HX Right ALLERGIES Lyrica [Pregabalin] MEDICATIONS Current Outpatient Medications Medication Sig ammonium lactate (LAC-HYDRIN) 12 % cream Apply to affected area as needed. LANTUS SOLOSTAR U-100 INSULIN 100 unit/mL (3 mL) Inject 10 Units subcutaneously daily at bedtime. (Patient not taking: Reported on 12/05/2024) hydrOXYzine HCl (ATARAX) 25 mg tablet Take 1 tablet by mouth every 6 hours as needed for itching/rash. Tadalafil (CIALIS) 20 mg tablet Take 1 tablet by mouth once daily as needed. Do not take at same time as doxazosin pantoprazole DR (PROTONIX) 40 mg tablet Take 1 tablet by mouth every morning. Insulin [place], Disposable, (BD ULTRA-FINE GOLDY PEN NEEDLE) 32 gauge x Use one needle for each dose. once/day. atorvastatin (LIPITOR) 40 mg tablet Take 1 tablet by mouth daily at bedtime. bumetanide (BUMEX) 2 mg tablet Take 1 tablet by mouth every morning. carvedilol (COREG) 12.5 mg tablet Take 1 tablet by mouth two times a day with meals. loratadine (CLARITIN) 10 mg tablet Take 1 tablet by mouth once daily. aspirin, enteric coated (ASPIRIN, ENTERIC COATED) 81 mg EC tablet Take 81 mg by mouth once daily. Pt to call and clarify if needs to stop sevelamer carbonate (RENVELA) 800 mg tablet Take 800 mg by mouth three times daily with meals. B Complex-Vitamin C-Folic Acid (NEPHRO-SAVANAH) 0.8 mg tab Take 1 tablet by mouth every morning. melatonin 5 mg tablet Take 10 mg by mouth at bedtime as needed for for insomnia. acetaminophen (TYLENOL EX STR RAPID RELEASE ORAL) Take 1-2 capsules by mouth every 6 hours as needed (pain). doxazosin (CARDURA) 4 mg tablet Take 0.5 tablets by mouth twice daily. latanoprost (XALATAN) 0.005 % ophthalmic solution Use 1 Drop in both eyes daily at bedtime. into affected eye(s). No current facility-administered medications for this visit. FAMILY HISTORY Problem Relation Age of Onset Arthritis Mother Coronary Artery Disease Mother Diabetes Mother Heart Mother Hypertension Mother Alcohol/Drug Father Arthritis Father Heart Father Hypertension Father Social History Tobacco Use Smoking status: Never Smo (more content not included)...[facility]04-11-2025 History of Present illness Narrative* Alexus Mendez APRN.[facility] - 12/05/2024 1:28 PM EDT This is a 69 year old male who presents today with: Patient presents with: Follow Up HISTORY OF PRESENT ILLNESS: Mauri Quinones is a 69 year old male. Patient presents with: Follow Up Cough is getting better. Having trouble sleeping at night- takes 2 melatonin and wakes up an hour Tired. No H/A No fever or chills Always body aches No SOB BSS running 119- 131, not taking lantus PAST MEDICAL HISTORY: PAST MEDICAL HISTORY Diagnosis Date Acute on chronic diastolic congestive heart failure (HCC) 07/14/2018 [facility] (acute kidney injury) 03/24/2019 [facility] (acute kidney injury) 03/24/2019 Ankylosing spondylitis (HCC) CAD (coronary artery disease) Cellulitis Chronic combined systolic and diastolic CHF (congestive heart failure) (HCC) 03/24/2019 CKD (chronic kidney disease) stage 3, GFR 30-59 ml/min ([facility]) 03/24/2019 Constipation Diabetes ([facility]) Gout High phosphate levels 03/24/2019 History of coronary artery bypass graft 04/18/2019 04/10/17 CARTY to LAD, SVG to PDA, SVG to OM Hx of fracture multiple bones Hyperkalemia 03/24/2019 Hypoalbuminemia 03/24/2019 Hyponatremia 03/24/2019 Hypoxia 03/24/2019 Ischemic cardiomyopathy 04/18/2019 Echocardiogram 01/10/19 Dr. Nunez: Dilated left ventricle, left ventricular ejection fraction 40%, mild to moderate systolic dysfunction, moderate concentric LVH, dilated left and right atria. Mild mitral valve thickening with papillary muscle dysfunction, mild mitral valve insufficiency, tricuspid valve insufficiency, aortic valve insufficiency, pulmonic valve insufficiency. Aortic valve calcifi NSTEMI (non-ST elevated myocardial infarction) ([facility]) 03/12/2017 [facility] admit Osteoarthritis Transition of care performed with sharing of clinical summary 04/08/2019 Admit [facility] 03/21/19-03/22/19 Discharge diagnoses chronic kidney disease with worsening creatinine, acute kidney injury Hypokalemia Toxic encephalopathy secondary to Flexeril overusage Type 2 diabetes Ischemic cardiomyopathy Coronary artery disease Ligamental cervical neck strain and acute Pulmonary hypertension Hypertension Pyuria Preadmit: to [facility] ED with slurred speech, lethargy. PAST SURGICAL HISTORY Procedure Laterality Date ARTHRP ACETBLR/PROX FEM PROSTC AGRFT/ALGRFT Right 2019 Dr Peguero CORONARY ARTERY BYPASS GRAFT 04/12/2017 x 3 FEMUR RIGHT OP SURGERY Right Repair of fracture with hardward HIP SURGERY HX Right pin KNEE ARTHROSCOPY Left x2 KNEE SURGERY HX Right TKR, right, arthoscopy x3 PAST SURGICAL HISTORY OF 09/07/2017 08/15/17 fx radius in 2 places; plate and screws.Plate and screws 09/07/17 [facility] TOE SURGERY HX Right ALLERGIES Lyrica [Pregabalin] MEDICATIONS Current Outpatient Medications Medication Sig ammonium lactate (LAC-HYDRIN) 12 % cream Apply to affected area as needed. LANTUS SOLOSTAR U-100 INSULIN 100 unit/mL (3 mL) Inject 10 Units subcutaneously daily at bedtime. (Patient not taking: Reported on 12/05/2024) hydrOXYzine HCl (ATARAX) 25 mg tablet Take 1 tablet by mouth every 6 hours as needed for itching/rash. Tadalafil (CIALIS) 20 mg tablet Take 1 tablet by mouth once daily as needed. Do not take at same time as doxazosin pantoprazole DR (PROTONIX) 40 mg tablet Take 1 tablet by mouth every morning. Insulin [place], Disposable, (BD ULTRA-FINE GOLDY PEN NEEDLE) 32 gauge x Use one needle for each dose. once/day. atorvastatin (LIPITOR) 40 mg tablet Take 1 tablet by mouth daily at bedtime. bumetanide (BUMEX) 2 mg tablet Take 1 tablet by mouth every morning. carvedilol (COREG) 12.5 mg tablet Take 1 tablet by mouth two times a day with meals. loratadine (CLARITIN) 10 mg tablet Take 1 tablet by mouth once daily. aspirin, enteric coated (ASPIRIN, ENTERIC COATED) 81 mg EC tablet Take 81 mg by mouth once daily. Pt to call and clarify if needs to stop sevelamer carbonate (RENVELA) 800 mg tablet Take 800 mg by mouth three times daily with meals. B Complex-Vitamin C-Folic Acid (NEPHRO-SAVANAH) 0.8 mg tab Take 1 tablet by mouth every morning. melatonin 5 mg tablet Take 10 mg by mouth at bedtime as needed for for insomnia. acetaminophen (TYLENOL EX STR RAPID RELEASE ORAL) Take 1-2 capsules by mouth every 6 hours as needed (pain). doxazosin (CARDURA) 4 mg tablet Take 0.5 tablets by mouth twice daily. latanoprost (XALATAN) 0.005 % ophthalmic solution Use 1 Drop in both eyes daily at bedtime. into affected eye(s). No current facility-administered medications for this visit. FAMILY HISTORY Problem Relation Age of Onset Arthritis Mother Coronary Artery Disease Mother Diabetes Mother Heart Mother Hypertension Mother Alcohol/Drug Father Arthritis Father Heart Father Hypertension Father Social History Tobacco Use Smoking status: Never Smokeless tobacco: Former Types: Chew Quit date: 04/17/2017 Substance Use Topics Alcohol use: No Comment: seldom Drug use: No EXAM: BP 122/68 Pulse 85 Temp 36.3 C (97.3 F) (Right Tympanic) Wt 81.2 kg (179 lb) SpO2 97% BMI25.68 kg/m PHYSICAL EXAM: Physical Exam Vitals reviewed. Constitutional: Appearance: Normal appearance. HENT: Head: Normocephalic. Cardiovascular: Rate and Rhythm: Normal rate and regular rhythm. Pulses: Normal pulses. Heart sounds: Normal heart sounds. Pulmonary: Effort: Pulmonary effort is normal. Breath sounds: Normal breath sounds. Abdominal: General: Bowel sounds are normal. Palpations: Abdomen is soft. Tenderness: There is no abdominal tenderness. There is no guarding. Musculoskeletal: Right lower leg: No edema. Left lower leg: No edema. Skin: General: Skin is warm and dry. Neurological: Mental Status: He is alert and oriented to person, place, and time. Psychiatric: Mood and Affect: Mood normal. Behavior: Behavior normal. LABS: outside labs written for dialysis ASSESSMENT/PLAN: 1. Chronic insomnia - ICD9: 780.52, ICD10: F51.04 (primary diagnosis) Melatonin not helpful, trial trazodone - TRAZODONE 50 MG TABLET at bedtime 2. URI, acute - ICD9: 465.9, ICD10: J06.9 - Discussed viral etiology and rationale for treatment. - Symptomatic treatment with prn analgesia - Supportive care with fluids and rest - Improved - Benzonatate 100 mg 3 x day as needed for cough 3. Type 2 diabetes mellitus without complication, with long-term current use of insulin (HCC) - ICD9: 250.00, V58.67, ICD10: E11.9, Z79.4 - Controlled - Stop Insulin glargine (Lantus/Basaglar/Toujeo) pt. Not taking insulin, BSS well controlled Discussed treatment plan and patient voices understanding. Patient's questions answered appropriately. Medications and potential side effects were discussed and patient voices understanding. Return to the office as scheduled or as needed for worsening/no improvement. Alexus Mendez APRN.CNP documented [facility] Telephone encounter Note * Telephone Encounter - Alexus Mendez APRN.CNP - 11/28/2024 7:54 AM EDT I will order a Z-Chloe, azithromycin 2 tablets today and 1 daily for 4 more days and a steroid taper.Please let me check you next Sunday. Will ask nursing to get you an appointment. [facility]04-04-[facility] Miscellaneous Notes* Telephone Encounter - Alexus Mendez APRN.CNP - 11/28/2024 7:54 AM EDT I will order a Z-Chloe, azithromycin 2 tablets today and 1 daily for 4 more days and a steroid taper.Please let me check you next Sunday. Will ask nursing to get you an appointment. documented in this [facility]04-02-[facility] History of Present illness Narrative* Jensen Mendieta, WILLIAMS - 11/26/2024 8:45 AM EDT RADIOLOGY SERVICE PROGRESS NOTE SERVICE DATE: 11/26/2024 SERVICE TIME: 2:12 PM PATIENT IDENTITY VERIFICATION COMPLETED USING TWO (2) STANDARD IDENTIFIERS: Name and Date of confirmed by patient verbally and Name and Date of confirmed by identification band FALL SCREENING: Has the patient had 2 falls in the last year or 1 fall with injury or currently using an Ambulatory Assistive Device (Walker, Cane, Wheelchair, Crutches, etc.)? Yes, Patient High Riskfor Falls What interventions were put in place to prevent falls during this visit? [place] Risk Wristband Applied and Increased Observations by Caregivers PATIENT GENDER DATA: .male ALLERGIES: Reviewed and unchanged MEDICATIONS REVIEWED: Not applicable PATIENT RELEVANT IMPLANT DATA REVIEWED: Not Applicable PATIENT PRESENTS WITH AN IMPLANTABLE OR ATTACHED EDGE BLACKER: No CREATININE: Creatinine Date Value Ref Range Status 04/23/2023 4.48 (H) 0.50 - 1.40 mg/dL Final Comment: Patients receiving either N-Acetylcysteine (NAC) or Metamizole prior to venipuncture, may have falsely depressed results. 01/04/2023 5.50 (H) 0.50 - 1.40 mg/dL Final Comment: Patients receiving either N-Acetylcysteine (NAC) or Metamizole prior to venipuncture, may have falsely depressed results. 01/03/2023 4.11 (H) 0.50 - 1.40 mg/dL Final Comment: Patients receiving either N-Acetylcysteine (NAC) or Metamizole prior to venipuncture, may have falsely depressed results. Estimated Glomerular Filtration Rate Date Value Ref Range Status 04/23/2023 14 (L) >=60 mL/min/1.73m Final Comment: Estimated Glomerular Filtration Rate (eGFR) is calculated using the 2020 CKD-EPI creatinine equation. This equation utilizes serum creatinine, sex, and age as parameters. The creatinine assay has traceable calibration to isotope dilution- mass spectrometry. Refer to KDIGO guidelines for clinical interpretation. In patients with unstable renal function, e.g. those with acute kidney injury, the eGFRmay not accurately reflect actual GFR. eGFR- Date Value Ref Range Status 06/01/2020 25 Final P.O.C.T. RESULTS: N/A November 26, [address] PERFORMED: No IV SITE: Ambulatory: A peripheral IV was started in the Right antecubital site with a Angio cath: 24 gauge. POST EXAM PIV STATUS: Discontinued PROCEDURE TYPE: NM INJECT: bone flow. 21.6 mCi Tc99m MDP. No other medications given.. ADMINISTRATION TIME: 09:20 PATIENT DISCHARGED TO: Ambulatory patient, left [place] department area. Is this a therapy: No A Diagnostic radioactive procedure has taken place, with no further precautions necessary other than routine body substance precautions. More information regarding radiation safety can be found usingthis link: [email or web address]%[email or web address] SIGNATURE: WILLIAMS Duran PATIENT NAME: Mauri Quinones DATE: November 26, 2024 TIME: 2:12 PM PAGER/CONTACT #: documented in this encounterW[facility]25 NoteHNO ID: [id number] Author: JENSEN MENDIETA CT Service: Nuclear Medicine Author Type: Technologist Type: Progress Notes Filed: 11/26/2024 14:14 Note Text: RADIOLOGY SERVICE PROGRESS NOTE SERVICE DATE: 11/26/2024 SERVICE TIME: 2:12 PM PATIENT IDENTITY VERIFICATION COMPLETED USING TWO (2) STANDARD IDENTIFIERS: Name and Date of confirmed by patient verbally and Name and Date of confirmed by identification band FALL SCREENING: Has the patient had 2 falls in the last year or 1 fall with injury or currently using an Ambulatory Assistive Device (Walker, Cane, Wheelchair, Crutches, etc.)? Yes, Patient High Risk for Falls What interventions were put in place to prevent falls during this visit? [place] Risk Wristband Applied and Increased Observations by Caregivers PATIENT GENDER DATA: .male ALLERGIES: Reviewed and unchanged MEDICATIONS REVIEWED: Not applicable PATIENT RELEVANT IMPLANT DATA REVIEWED: Not Applicable PATIENT PRESENTS WITH AN IMPLANTABLE OR ATTACHED EDGE BLACKER: No CREATININE: Creatinine Date Value Ref Range Status 04/23/2023 4.48 (H) 0.50 - 1.40 mg/dL Final Comment: Patients receiving either N-Acetylcysteine (NAC) or Metamizole prior to venipuncture, may have falsely depressed results. 01/04/2023 5.50 (H) 0.50 - 1.40 mg/dL Final Comment: Patients receiving either N-Acetylcysteine (NAC) or Metamizole prior to venipuncture, may have falsely depressed results. 01/03/2023 4.11 (H) 0.50 - 1.40 mg/dL Final Comment: Patients receiving either N-Acetylcysteine (NAC) or Metamizole prior to venipuncture, may have falsely depressed results. Estimated Glomerular Filtration Rate Date Value Ref Range Status 04/23/2023 14 (L) >=60 mL/min/1.73m? Final Comment: Estimated Glomerular Filtration Rate (eGFR) is calculated using the 2020 CKD-EPI creatinine equation. This equation utilizes serum creatinine, sex, and age as parameters. The creatinine assay has traceable calibration to isotope dilution-mass spectrometry. Refer to KDIGO guidelines for clinical interpretation. In patients with unstable renal function, e.g. those with acute kidney injury, the eGFR may not accurately reflect actual GFR. eGFR- Date Value Ref Range Status 06/01/2020 25 Final P.O.C.T. RESULTS: N/A November 26, [address] PERFORMED: No IV SITE: Ambulatory: A peripheral IV was started in the Right antecubital site with a Angio cath: 24 gauge. POST EXAM PIV STATUS: Discontinued PROCEDURE TYPE: NM INJECT: bone flow. 21.6 mCi Tc99m MDP. No other medications given.. ADMINISTRATION TIME: 09:20 PATIENT DISCHARGED TO: Ambulatory patient, left [place] department area. Is this a therapy: No A Diagnostic radioactive procedure has taken place, with no further precautions necessary other than routine body substance precautions. More information regarding radiation safety can be found using this link: [email or web address] 20Diagnostic%20Nuclear%20Medicine%[email or web address] SIGNATURE: WILLIAMS Duran PATIENT NAME: Mauri Quinones DATE: November 26, 2024 TIME: 2:12 PM [id number] Telephone encounter Note * Telephone Encounter - Aleshia Vázquez - 11/21/2024 1:47 PM EDT Forwarded to Radiology for scheduling [facility]03-28-2025 Miscellaneous Notes* Telephone Encounter - Aleshia Vázquez - 11/21/2024 1:47 PM EDT Forwarded to Radiology for scheduling * Telephone Encounter - Isabela Rosado RN - 11/21/2024 1:05 PM EDT Spoke with patient and relayed message. Patient verbalized understanding. Please send to radiology for scheduling (Not Tuesdays and due to dialysis) * Telephone Encounter - Yessenia Hewitt PA-C - 11/21/2024 1:01 PM EDT Discussed with dr. De La Rosa. Labs are only slightly elevated. He is recommending aspiration with fluid analysis. Orders placed. Yessenia Hewitt PA-C * Telephone Encounter - Lori Pino - 11/20/2024 9:34 AM EDT Patient called in, he got the results of his lab work and was curious what thought, please advise. Patient can be reached at #[phone] documented in this encounterW[facility]03-28-2025 Telephone encounter Note * Telephone Encounter - Isabela Rosado RN - 11/21/2024 1:05 PM EDT Spoke with patient and relayed message. Patient verbalized understanding. Please send to radiology for scheduling (Not Tuesdays and due to dialysis) [facility]03-28-[facility] Telephone encounter Note* Telephone Encounter - Yessenia Hewitt PA-C - 11/21/2024 1:01 PM EDT Discussed with dr. De La Rosa. Labs are only slightly elevated. He is recommending aspiration with fluid analysis. Orders placed. Yessenia Hewitt PA-C [facility]03-27-2025 Telephone encounter Note* Telephone Encounter - Bryce Landin RN - 11/20/2024 4:41 PM EDT Called and left a detailed voicemail notifying Bernice WEINBERG from [facility] of providers message. Clinic phone number was left in case she had any questions. Bryce Landin RN [facility]03-27-2025 Miscellaneous Notes* Telephone Encounter - Bryce Landin RN - 11/20/2024 4:41 PM EDT Called and left a detailed voicemail notifying Bernice WEINBERG from [facility] of providers message. Clinic phone number was left in case she had any questions. Bryce Landin, RN * Telephone Encounter - Rigoberto Gould MD - 11/20/2024 1:54 PM EDT ok * Telephone Encounter - Farrah Hastings RN - 11/20/2024 12:49 PM EDT Bernice RN from [facility] calls and states that they will be sending out a home health aide to help patient 3 hours a week. Bernice asking if PCP willing to follow orders? Please review and advise, Farrah Hastings RN documented in this encounterW[facility]03-27-2025 Telephone encounter Note * Telephone Encounter - Rigoberto Gould MD - 11/20/2024 1:54 PM EDT ok [facility]03-27-20[facility] Telephone encounter Note* Telephone Encounter - Farrah Hastings RN - 11/20/2024 12:49 PM EDT Bernice RN from [facility] calls and states that they will be sending out a home health aide to help patient 3 hours a week. Bernice asking if PCP willing to follow orders? Please review and advise, Farrah Hastings RN [facility]03-27-2025 Telephone encounter Note* Telephone Encounter - Lori Pino - 11/20/2024 9:34 AM EDT Patient called in, he got the results of his lab work and was curious what thought, please advise. Patient can be reached at #[phone] [facility]03-21-2025 NoteHNO ID: [id number] Author: NUPUR DE LA ROSA MD Service: ? Author Type: Physician Type: Progress Notes Filed: 12/12/2024 22:19 Note Text: REASON FOR VISIT / CHIEF COMPLAINT CHIEF COMPLAINT: Mauri Quinones is a 69 year old male who presents today for follow up office visit. Patient presents with: Right Hip - Established Patient, Pain, Hip Replacement HISTORY OF PRESENT ILLNESS (HPI) PAIN EVALUATION 11/11/2024 1158 Pain Level: 8 Pain Location: Hip-Right Description: Sharp;Stabbing;Throbbing Duration Amount of Time: -- ongoing Frequency: Continuous Intervention/Comfort measure: -- tylenol, Patient was last seen 1 month ago for pain in his knee. He reports that has improved however at this time he is having increased pain in his hip. He does have a remote history positive for total right hip arthroplasty. He states his pain is worse with weightbearing as well as at rest. Any new injury, since being seen last: No Is there any overall improvement in your condition? Yes, improvement in knee pain Does anything make it worse?: Yes, as noted above Does anything make it better?: No REVIEW OF SYMPTOMS: Integumentary: Any recent skin changes or rashes? No Neurologic: Any numbness or tingling in the LOCAL AREA? No Endocrine: Any diagnosis of diabetes? Yes Hematologic: Any recent bleeding episodes? No ALLERGIES ALLERGIES Allergen Reactions Lyrica [Pregabalin] Swelling PAST MEDICAL HISTORY PAST MEDICAL HISTORY Diagnosis Date Acute on chronic diastolic congestive heart failure (HCC) 07/14/2018 GARRET (acute kidney injury) 03/24/2019 GARRET (acute kidney injury) 03/24/2019 Ankylosing spondylitis ([facility]) CAD (coronary artery disease) Cellulitis Chronic combined systolic and diastolic CHF (congestive heart failure) ([facility]) 03/24/2019 CKD (chronic kidney disease) stage 3, GFR 30-59 ml/min ([facility]) 03/24/2019 Constipation Diabetes ([facility]) Gout High phosphate levels 03/24/2019 History of coronary artery bypass graft 04/18/2019 04/10/17 CARTY to LAD, SVG to PDA, SVG to OM Hx of fracture multiple bones Hyperkalemia 03/24/2019 Hypoalbuminemia 03/24/2019 Hyponatremia 03/24/2019 Hypoxia 03/24/2019 Ischemic cardiomyopathy 04/18/2019 Echocardiogram 01/10/19 Dr. Nunez: Dilated left ventricle, left ventricular ejection fraction 40%, mild to moderate systolic dysfunction, moderate concentric LVH, dilated left and right atria. Mild mitral valve thickening with papillary muscle dysfunction, mild mitral valve insufficiency, tricuspid valve insufficiency, aortic valve insufficiency, pulmonic valve insufficiency. Aortic valve calcifi NSTEMI (non-ST elevated myocardial infarction) (HCC) 03/12/2017 [facility] admit Osteoarthritis Transition of care performed with sharing of clinical summary 04/08/2019 Admit [facility] 03/21/19-03/22/19 Discharge diagnoses chronic kidney disease with worsening creatinine, acute kidney injury Hypokalemia Toxic encephalopathy secondary to Flexeril overusage Type 2 diabetes Ischemic cardiomyopathy Coronary artery disease Ligamental cervical neck strain and acute Pulmonary hypertension Hypertension Pyuria Preadmit: to [facility] ED with slurred speech, lethargy. PAST SURGICAL HISTORY Procedure Laterality Date ARTHRP ACETBLR/PROX FEM PROSTC AGRFT/ALGRFT Right 2019 Dr Peguero CORONARY ARTERY BYPASS GRAFT 04/12/2017 x 3 FEMUR RIGHT OP SURGERY Right Repair of fracture with hardward HIP SURGERY HX Right pin KNEE ARTHROSCOPY Left x2 KNEE SURGERY HX Right TKR, right, arthoscopy x3 PAST SURGICAL HISTORY OF 09/07/2017 08/15/17 fx radius in 2 places; plate and screws.Plate and screws 09/07/17 [facility] TOE SURGERY HX Right PHYSICAL EXAMINATION Vitals: There were no vitals taken for this visit. Body Habitus:no acute distress and alert and oriented Orientation: Normal: Oriented to person, place and time Psych: normal Sensation: sensation to light touch is grossly normal bilaterally Skin: Color, texture, turgor normal. No rashes or lesions Swelling: no swelling noted Stance: normal cervical posture, shoulder alignment, and no joint deformities or swelling noted Ortho Exam Right hip well-healed surgical incision Passive range of motion is painful in the lateral aspect of the hip as well as the groin. Right leg neurovascularly intact Imaging : X-ray right femur today The total hip and knee arthroplasties remain in satisfactory position, although the distal tibial stem and screws are not imaged on the lateral image. No periprosthetic lucency or acute fracture. Stable, healing distal femoral fracture. Extensive vascular calcifications. Proceedures : None today Assessment: Right hip pain. Differential diagnosis includes infection versus aseptic loosening recommend we get a screening bladder battery of labs as well as a bone scan. The proximal femur is quite osteoporotic and therefore high risk for any surgical int (more content not included)...[facility]03-21-2025 History of Present illness Narrative* Nupur De La Rosa MD - 11/14/2024 10:02 AM EDT Images from the original note were not included. REASON FOR VISIT / CHIEF COMPLAINT CHIEF COMPLAINT: Mauri Quinones is a 69 year old male who presents today for follow up office visit. Patient presents with: Right Hip - Established Patient, Pain, Hip Replacement HISTORY OF PRESENT ILLNESS (HPI) PAIN EVALUATION 11/11/2024 1158 Pain Level: 8 Pain Location: Hip-Right Description: Sharp;Stabbing;Throbbing Duration Amount of Time: -- ongoing Frequency: Continuous Intervention/Comfort measure: -- tylenol, Patient was last seen 1 month ago for pain in his knee. He reports that has improved however at this time he is having increased pain in his hip. He does have a remote history positive for total right hip arthroplasty. He states his pain is worse with weightbearing as well as at rest. Any new injury, since being seen last: No Is there any overall improvement in your condition? Yes, improvement in knee pain Does anything make it worse?: Yes, as noted above Does anything make it better?: No REVIEW OF SYMPTOMS: Integumentary: Any recent skin changes or rashes? No Neurologic: Any numbness or tingling in the LOCAL AREA? No Endocrine: Any diagnosis of diabetes? Yes Hematologic: Any recent bleeding episodes? No ALLERGIES ALLERGIES Allergen Reactions Lyrica [Pregabalin] Swelling PAST MEDICAL HISTORY PAST MEDICAL HISTORY Diagnosis Date Acute on chronic diastolic congestive heart failure (HCC) 07/14/2018 [facility] (acute kidney injury) 03/24/2019 [facility] (acute kidney injury) 03/24/2019 Ankylosing spondylitis (HCC) CAD (coronary artery disease) Cellulitis Chronic combined systolic and diastolic CHF (congestive heart failure) ([facility]) 03/24/2019 CKD (chronic kidney disease) stage 3, GFR 30-59 ml/min ([facility]) 03/24/2019 Constipation Diabetes ([facility]) Gout High phosphate levels 03/24/2019 History of coronary artery bypass graft 04/18/2019 04/10/17 CARTY to LAD, SVG to PDA, SVG to OM Hx of fracture multiple bones Hyperkalemia 03/24/2019 Hypoalbuminemia 03/24/2019 Hyponatremia 03/24/2019 Hypoxia 03/24/2019 Ischemic cardiomyopathy 04/18/2019 Echocardiogram 01/10/19 Dr. Nunez: Dilated left ventricle, left ventricular ejection fraction 40%, mild to moderate systolic dysfunction, moderate concentric LVH, dilated left and right atria. Mild mitral valve thickening with papillary muscle dysfunction, mild mitral valve insufficiency, tricuspid valve insufficiency, aortic valve insufficiency, pulmonic valve insufficiency. Aortic valve calcifi NSTEMI (non-ST elevated myocardial infarction) ([facility]) 03/12/2017 [facility] admit Osteoarthritis Transition of care performed with sharing of clinical summary 04/08/2019 Admit [facility] 03/21/19-03/22/19 Discharge diagnoses chronic kidney disease with worsening creatinine, acute kidney injury Hypokalemia Toxic encephalopathy secondary to Flexeril overusage Type 2 diabetes Ischemic cardiomyopathy Coronary artery disease Ligamental cervical neck strain and acute Pulmonary hypertension Hypertension Pyuria Preadmit: to [facility] ED with slurred speech, lethargy. PAST SURGICAL HISTORY Procedure Laterality Date ARTHRP ACETBLR/PROX FEM PROSTC AGRFT/ALGRFT Right 2019 Dr Peguero CORONARY ARTERY BYPASS GRAFT 04/12/2017 x 3 FEMUR RIGHT OP SURGERY Right Repair of fracture with hardward HIP SURGERY HX Right pin KNEE ARTHROSCOPY Left x2 KNEE SURGERY HX Right TKR, right, arthoscopy x3 PAST SURGICAL HISTORY OF 09/07/2017 08/15/17 fx radius in 2 places; plate and screws.Plate and screws 09/07/17 [facility] TOE SURGERY HX Right PHYSICAL EXAMINATION Vitals: There were no vitals taken for this visit. Body Habitus:no acute distress and alert and oriented Orientation: Normal: Oriented to person, place and time Psych: normal Sensation: sensation to light touch is grossly normal bilaterally Skin: Color, texture, turgor normal. No rashes or lesions Swelling: no swelling noted Stance: normal cervical posture, shoulder alignment, and no joint deformities or swelling noted Ortho Exam Right hip well-healed surgical incision Passive range of motion is painful in the lateral aspect of the hip as well as the groin. Right leg neurovascularly intact Imaging : X-ray right femur today The total hip and knee arthroplasties remain in satisfactory position, although the distal tibial stem and screws are not imaged on the lateral image. No periprosthetic lucency or acute fracture. Stable, healing distal femoral fracture. Extensive vascular calcifications. Proceedures : None today Assessment: Right hip pain. Differential diagnosis includes infection versus aseptic loosening recommend we get a screening bladder battery of labs as well as a bone scan. The proximal femur is quiteosteoporotic and therefore high risk for any surgical intervention. Plan: 1. Bone scan 2. CBC/sed rate/CRP 3. Follow-up after bone scan completed Nupur De La Rosa M.D. Department of Orthopaedic Surgery [facility] documented in this encounterW[facility]03-21-20[facility] History of Present illness Narrative* Shaye Polanco RT(R) - 11/14/2024 9:30 AM EDT Radiology Service Progress Note PATIENT NAME: Mauri Quinones DATE OF SERVICE: November 14, 2024 TIME: 9:47 AM PATIENT IDENTITY VERIFICATION COMPLETED USING TWO (2) IDENTIFIERS: Name and Date of confirmedby patient verbally. FALL SCREENING: Has the patient had 2 falls in the last year or 1 fall with injury or currently using an Ambulatory Assistive Device (Walker, Cane, Wheelchair, Crutches, etc.)? No PATIENT GENDER DATA: Assigned male at PATIENT RELEVANT IMPLANT DATA REVIEWED: Not Applicable PATIENT PRESENTS WITH AN IMPLANTABLE OR ATTACHED EDGE BLACKER: No RADIOLOGY DEPARTMENT: General X-ray: Exam(s) Completed: Lower Extremity X- Ray(s): Femur, Right PERIPHERAL IV DATA: Not applicable SIGNED BY: RT Carol(R) November 14, 2024 9:47 AM documented in this encounterWvumedicine [facility]03-21-2025 NoteHNO ID: [id number] Author: SHAYE POLANCO RT(R) Service: Radiology Author Type: Technologist Type: Progress Notes Filed: 11/14/2024 09:47 Note Text: Radiology Service Progress Note PATIENT NAME: Mauri Quinones DATE OF SERVICE: November 14, 2024 TIME: 9:47 AM PATIENT IDENTITY VERIFICATION COMPLETED USING TWO (2) IDENTIFIERS: Name and Date of confirmed by patient verbally. FALL SCREENING: Has the patient had 2 falls in the last year or 1 fall with injury or currently using an Ambulatory Assistive Device (Walker, Cane, Wheelchair, Crutches, etc.)? No PATIENT GENDER DATA: Assigned male at PATIENT RELEVANT IMPLANT DATA REVIEWED: Not Applicable PATIENT PRESENTS WITH AN IMPLANTABLE OR ATTACHED EDGE BLACKER: No RADIOLOGY DEPARTMENT: General X-ray: Exam(s) Completed: Lower Extremity X-Ray(s): Femur, Right PERIPHERAL IV DATA: Not applicable SIGNED BY: RT Carol(R) November 14, 2024 9:47 AMK[facility] [id number] Telephone encounter Note* Telephone Encounter - Lori Pino - 11/11/2024 11:40 AM EDT Patient called back in and has been scheduled. [facility]03-18-2025 Miscellaneous Notes* Telephone Encounter - Lori Pino - 11/11/2024 11:40 AM EDT Patient called back in and has been scheduled. * Telephone Encounter - Isabela Rosado RN - 11/11/2024 7:20 AM EDT I talked with Ted. He denies new trauma but c/o sharp pain in groin and anterior thigh with hip flexion. He has a KEMAR and TKA on this side with a retrograde minesh for an old periprosthetic knee fracture. Ted also wears a knee brace to help with instability of the total knee. I will ask our schedulers to call Ted to help set up a visit and new femur XRays. Maco Rivera PA-C * Telephone Encounter - Maco Rivera PA-C - 11/10/2024 4:58 PM EDT Isabela please ask schedulers to call Ted to help set up an office follow up. Thank you Cara * Telephone Encounter - Maco Rivera PA-C - 11/10/2024 3:08 PM EDT I called but still no answer. I will try again today or tomorrow. Maco Rivera PA-C * Telephone Encounter - Maco Rivera PA-C - 11/10/2024 2:26 PM EDT I called to talk with Ted but there was no answer. I will try again later today. Maco Rivera PA-C * Telephone Encounter - Isabela oRsado RN - 11/10/2024 1:18 PM EDT Spoke with patient Started last Sunday,shooting pain from right hip replacement, lasts about a minute or two to right knee Used ice, which usually helps but it didn't plus he takes tylenol Has to keep straight, can't bend or move left or right Hard to put socks on No back issues Uses walker and brace and is able to weight 100% Saw pt 10/17/24 He is stretching twice a day to help Please advise documented in this encounterWv[facility]03-18-2025 Telephone encounter Note * Telephone Encounter - Isabela Rosado RN - 11/11/2024 7:20 AM EDT I talked with Ted. He denies new trauma but c/o sharp pain in groin and anterior thigh with hip flexion. He has a KEMAR and TKA on this side with a retrograde minesh for an old periprosthetic knee fracture. Ted also wears a knee brace to help with instability of the total knee. I will ask our schedulers to call Ted to help set up a visit and new femur XRays. Maco Rivera PA-C [facility]03-17-2025 Telephone encounter Note* Telephone Encounter - Maco Rivera PA-C - 11/10/2024 4:58 PM EDT Isabela please ask schedulers to call Ted to help set up an office follow up. Thank you Cara [facility] Work Phone: [phone]) 613-503103-17-2025 Telephone encounter Note* Telephone Encounter - Maco Rivera PA-C - 11/10/2024 3:08 PM EDT I called but still no answer. I will try again today or tomorrow. Maco Rivera PA-C [facility]03-17-2025 Telephone encounter Note* Telephone Encounter - Maco Rivera PA-C - 11/10/2024 2:26 PM EDT I called to talk with Ted but there was no answer. I will try again later today. Maco Rivera PA-C [facility]03-17-2025 Telephone encounter Note* Telephone Encounter - Isabela Rosado RN - 11/10/2024 1:18 PM EDT Spoke with patient Started last Sunday,shooting pain from right hip replacement, lasts about a minute or two to right knee Used ice, which usually helps but it didn't plus he takes tylenol Has to keep straight, can't bend or move left or right Hard to put socks on No back issues Uses walker and brace and is able to weight 100% Saw pt 10/17/24 He is stretching twice a day to help Please advise [facility]03-16-2025 Telephone encounter Note* Telephone Encounter - Candice Mayer RN - 11/09/2024 6:15 PM EDT Patient calling regarding pain at hip replacement. Conferenced to [facility] pneumatic tube operator, Martha, to speak with provider electronic development technician for Dr Fields. [facility]03-16-2025 Miscellaneous Notes* Telephone Encounter - Candice Mayer RN - 11/09/2024 6:15 PM EDT Patient calling regarding pain at hip replacement. Conferenced to [facility] pneumatic tube operator, Martha, to speak with provider electronic development technician for Dr Fields. documented [facility] Evaluation note* Diagnosis Onset Date Resolution Status Admit Date Atherosclerosis of [place] ronary artery of [place] heart without angina chronic October 28, 2024 12:52pm DM2 (diabetes mellitus, type 2) digital commentator luca October 28, 2024 12:52pm Essential hypertension chronic [facility] 2024 12:52pm Ischemic cardiomyopathy chronic [facility] 2024 12:52pm Pure hypercholesterolemia chronic October 28, 2024 12:52pm Valvular heart disease chronic [facility] 2024 12:52pm Acute hyperkalemia acute December 11, 2024 4:45pm Acute uremia acute December 11, 2024 4:45pm End-stage renal disease on hemodialysis acute December 11, 2024 4:45pm Fluid overload acute November 4:45pm History of ischemic cardiomyopathy a cute December 11, 2024 4:45pm Hyponatremia acute December 11, 2024 4:45pm Paroxysmal atrial fibrillation acute December 11, 2024 4:45pm [facility] Work Phone: 1(477) 951-875203-04-2025 Evaluation note* Diagnosis Onset Date Resolution Status Admit Date Atherosclerosis of [place] ronary artery of [place] heart without angina chronic October 28, 2024 12:52pm DM2 (diabetes mellitus, type 2) digital commentator luca October 28, 2024 12:52pm Essential hypertension chronic [facility] 2024 12:52pm Ischemic cardiomyopathy chronic M arch 2024 12:52pm Pure hypercholesterolemia chronic October 28, 2024 12:52pm Valvular heart disease chronic [facility] 2024 12:52pm Acute hyperkalemia acute December 11, 2024 4:45pm Acute uremia acute December 11, 2024 4:45pm End-stage renal disease on hemodialysis acute December 11, 2024 4:45pm Fluid overload acute November 4:45pm History of ischemic cardiomyopathy a cute December 11, 2024 4:45pm Hyponatremia acute December 11, 2024 4:45pm Paroxysmal atrial fibrillation acute December 11, 2024 4:45pm Hx of CABG March, chronic December 11, 2024 4:45pm Ischemic cardiomyopathy chronic A pril 2024 4:45pm [facility] Work Phone: 1(567) 564-365103-04-2025 Evaluation note* Diagnosis Onset Date Resolution Status Admit Date Atherosclerosis of [place] ronary artery of [place] heart without angina chronic October 28, 2024 12:52pm DM2 (diabetes mellitus, type 2) digital commentator luca October 28, 2024 12:52pm Essential hypertension chronic [facility] 2024 12:52pm Ischemic cardiomyopathy chronic M arch 2024 12:52pm Pure hypercholesterolemia chronic October 28, 2024 12:52pm Valvular heart disease chronic [facility] 2024 12:52pm Acute hyperkalemia acute December 11, 2024 4:45pm Acute uremia acute December 11, 2024 4:45pm End-stage renal disease on hemodialysis acute December 11, 2024 4:45pm History of ischemic cardiomyopathy a cute December 11, 2024 4:45pm Hyponatremia acute December 11, 2024 4:45pm Hx of CABG March, chronic December 11, 2024 4:45pm Ischemic cardiomyopathy chronic A pril 2024 4:45pm Fluid overload resolved November 4:45pm Paroxysmal atrial fibrillation inact chelly December 11, 2024 4:45pm Persistent atrial fibrillation acute December 26, 2024 12:56pm Atherosclerosis of [place] ronary artery of [place] heart without angina chronic December 26, 2024 12:56pm Essential hypertension chronic Ma y 2024 12:56pm Ischemic cardiomyopathy chronic M ay 2024 12:56pm Pure hypercholesterolemia chronic December 26, 2024 12:56pm Valvular heart disease chronic Ma y 2024 12:56pm [facility] Work Phone: 1(625) 645-826402-21-2025 NoteHNO ID: [id number] Author: NUPUR DE LA ROSA MD Service: ? Author Type: Physician Type: Progress Notes Filed: 11/14/2024 21:56 Note Text: REASON FOR VISIT / CHIEF COMPLAINT CHIEF COMPLAINT: Mauri Quinones is a 69 year old male who presents today for follow up office visit. Patient presents with: Right Knee - Follow Up HISTORY OF PRESENT ILLNESS (HPI) PAIN EVALUATION 10/17/2024 1629 Pain Level: 6 Pain Location: Knee-Right Description: Dull Frequency: Intermittent Patient is here for evaluation of a spontaneously developing right knee pain. He was last seen approximately a month ago. He has a past medical history significant for total knee arthroplasty subsequent periprosthetic fracture that was treated with an intramedullary minesh and also a remote total hip arthroplasty. He is complaining of pain about the knee that is made worse with weightbearing. Any new injury, since being seen last: No Is there any overall improvement in your condition? No Does anything make it worse?: Yes, prolonged standing, walking Does anything make it better?: Yes, activity modification REVIEW OF SYMPTOMS: Integumentary: Any recent skin changes or rashes? No Neurologic: Any numbness or tingling in the LOCAL AREA? No Endocrine: Any diagnosis of diabetes? No Hematologic: Any recent bleeding episodes? No ALLERGIES ALLERGIES Allergen Reactions Lyrica [Pregabalin] Swelling PAST MEDICAL HISTORY PAST MEDICAL HISTORY Diagnosis Date Acute on chronic diastolic congestive heart failure ([facility]) 07/14/2018 GARRET (acute kidney injury) ([facility]) 03/24/2019 GARRET (acute kidney injury) ([facility]) 03/24/2019 Ankylosing spondylitis ([facility]) CAD (coronary artery disease) Cellulitis Chronic combined systolic and diastolic CHF (congestive heart failure) ([facility]) 03/24/2019 CKD (chronic kidney disease) stage 3, GFR 30-59 ml/min ([facility]) 03/24/2019 Constipation Diabetes ([facility]) Gout High phosphate levels 03/24/2019 History of coronary artery bypass graft 04/18/2019 04/10/17 CARTY to LAD, SVG to PDA, SVG to OM Hx of fracture multiple bones Hyperkalemia 03/24/2019 Hypoalbuminemia 03/24/2019 Hyponatremia 03/24/2019 Hypoxia 03/24/2019 Ischemic cardiomyopathy 04/18/2019 Echocardiogram 01/10/19 Dr. Nunez: Dilated left ventricle, left ventricular ejection fraction 40%, mild to moderate systolic dysfunction, moderate concentric LVH, dilated left and right atria. Mild mitral valve thickening with papillary muscle dysfunction, mild mitral valve insufficiency, tricuspid valve insufficiency, aortic valve insufficiency, pulmonic valve insufficiency. Aortic valve calcifi NSTEMI (non-ST elevated myocardial infarction) ([facility]) 03/12/2017 [facility] admit Osteoarthritis Transition of care performed with sharing of clinical summary 04/08/2019 Admit [facility] 03/21/19-03/22/19 Discharge diagnoses chronic kidney disease with worsening creatinine, acute kidney injury Hypokalemia Toxic encephalopathy secondary to Flexeril overusage Type 2 diabetes Ischemic cardiomyopathy Coronary artery disease Ligamental cervical neck strain and acute Pulmonary hypertension Hypertension Pyuria Preadmit: to [facility] ED with slurred speech, lethargy. PAST SURGICAL HISTORY Procedure Laterality Date ARTHRP ACETBLR/PROX FEM PROSTC AGRFT/ALGRFT Right 2019 Dr Peguero CORONARY ARTERY BYPASS GRAFT 04/12/2017 x 3 FEMUR RIGHT OP SURGERY Right Repair of fracture with hardward HIP SURGERY HX Right pin KNEE ARTHROSCOPY Left x2 KNEE SURGERY HX Right TKR, right, arthoscopy x3 PAST SURGICAL HISTORY OF 09/07/2017 08/15/17 fx radius in 2 places; plate and screws.Plate and screws 09/07/17 [facility] TOE SURGERY HX Right PHYSICAL EXAMINATION Vitals: There were no vitals taken for this visit. Body Habitus:no acute distress and alert and oriented Orientation: Normal: Oriented to person, place and time Psych: normal Sensation: sensation to light touch is grossly normal bilaterally Skin: Color, texture, turgor normal. No rashes or lesions Swelling: no swelling noted Stance: normal cervical posture, shoulder alignment, and no joint deformities or swelling noted Ortho Exam Right knee well-healed surgical incisions corresponding to his multiple previous surgeries No palpable effusion Range of motion 0-1 10 Mild laxity to varus valgus stress Mild laxity to anterior posterior stress in the knee. Right leg neurovascularly intact Imaging : None today Proceedures : None today Assessment: Chronic right leg pain with acute flareup that is since improved. Possibility we may be dealing with a referred pain from the hip and possible loose component versus instability in the knee. As he is improving clinically I recommend we continue to monitor this and have him continue to wear his knee brace for stability and will reevaluate him in the office approximately 3 to 4 weeks. If his symptoms persist, repeat radiographs will be suzanne (more content not included)...[facility]02-21-2025 History of Present illness Narrative* Nupur De La Rosa MD - 10/17/2024 4:28 PM EST REASON FOR VISIT / CHIEF COMPLAINT CHIEF COMPLAINT: Mauri Quinones is a 69 year old male who presents today for follow up office visit. Patient presents with: Right Knee - Follow Up HISTORY OF PRESENT ILLNESS (HPI) PAIN EVALUATION 10/17/2024 1629 Pain Level: 6 Pain Location: Knee-Right Description: Dull Frequency: Intermittent Patient is here for evaluation of a spontaneously developing right knee pain. He was last seen approximately a month ago. He has a past medical history significant for total knee arthroplasty subsequent periprosthetic fracture that was treated with an intramedullary minesh and also a remote total hip arthroplasty. He is complaining of pain about the knee that is made worse with weightbearing. Any new injury, since being seen last: No Is there any overall improvement in your condition? No Does anything make it worse?: Yes, prolonged standing, walking Does anything make it better?: Yes, activity modification REVIEW OF SYMPTOMS: Integumentary: Any recent skin changes or rashes? No Neurologic: Any numbness or tingling in the LOCAL AREA? No Endocrine: Any diagnosis of diabetes? No Hematologic: Any recent bleeding episodes? No ALLERGIES ALLERGIES Allergen Reactions Lyrica [Pregabalin] Swelling PAST MEDICAL HISTORY PAST MEDICAL HISTORY Diagnosis Date Acute on chronic diastolic congestive heart failure ([facility]) 07/14/2018 GARRET (acute kidney injury) ([facility]) 03/24/2019 GARRET (acute kidney injury) ([facility]) 03/24/2019 Ankylosing spondylitis ([facility]) CAD (coronary artery disease) Cellulitis Chronic combined systolic and diastolic CHF (congestive heart failure) ([facility]) 03/24/2019 CKD (chronic kidney disease) stage 3, GFR 30-59 ml/min ([facility]) 03/24/2019 Constipation Diabetes ([facility]) Gout High phosphate levels 03/24/2019 History of coronary artery bypass graft 04/18/2019 04/10/17 CARTY to LAD, SVG to PDA, SVG to OM Hx of fracture multiple bones Hyperkalemia 03/24/2019 Hypoalbuminemia 03/24/2019 Hyponatremia 03/24/2019 Hypoxia 03/24/2019 Ischemic cardiomyopathy 04/18/2019 Echocardiogram 01/10/19 Dr. Nunez: Dilated left ventricle, left ventricular ejection fraction 40%, mild to moderate systolic dysfunction, moderate concentric LVH, dilated left and right atria. Mild mitral valve thickening with papillary muscle dysfunction, mild mitral valve insufficiency, tricuspid valve insufficiency, aortic valve insufficiency, pulmonic valve insufficiency. Aortic valve calcifi NSTEMI (non-ST elevated myocardial infarction) ([facility]) 03/12/2017 [facility] admit Osteoarthritis Transition of care performed with sharing of clinical summary 04/08/2019 Admit [facility] 03/21/19-03/22/19 Discharge diagnoses chronic kidney disease with worsening creatinine, acute kidney injury Hypokalemia Toxic encephalopathy secondary to Flexeril overusage Type 2 diabetes Ischemic cardiomyopathy Coronary artery disease Ligamental cervical neck strain and acute Pulmonary hypertension Hypertension Pyuria Preadmit: to [facility] ED with slurred speech, lethargy. PAST SURGICAL HISTORY Procedure Laterality Date ARTHRP ACETBLR/PROX FEM PROSTC AGRFT/ALGRFT Right 2019 Dr Peguero CORONARY ARTERY BYPASS GRAFT 04/12/2017 x 3 FEMUR RIGHT OP SURGERY Right Repair of fracture with hardward HIP SURGERY HX Right pin KNEE ARTHROSCOPY Left x2 KNEE SURGERY HX Right TKR, right, arthoscopy x3 PAST SURGICAL HISTORY OF 09/07/2017 08/15/17 fx radius in 2 places; plate and screws.Plate and screws 09/07/17 [facility] TOE SURGERY HX Right PHYSICAL EXAMINATION Vitals: There were no vitals taken for this visit. Body Habitus:no acute distress and alert and oriented Orientation: Normal: Oriented to person, place and time Psych: normal Sensation: sensation to light touch is grossly normal bilaterally Skin: Color, texture, turgor normal. No rashes or lesions Swelling: no swelling noted Stance: normal cervical posture, shoulder alignment, and no joint deformities or swelling noted Ortho Exam Right knee well-healed surgical incisions corresponding to his multiple previous surgeries No palpable effusion Range of motion 0-1 10 Mild laxity to varus valgus stress Mild laxity to anterior posterior stress in the knee. Right leg neurovascularly intact Imaging : None today Proceedures : None today Assessment: Chronic right leg pain with acute flareup that is since improved. Possibility we may bedealing with a referred pain from the hip and possible loose component versus instability in the knee. As he is improving clinically I recommend we continue to monitor this and have him continue to wear his knee brace for stability and will reevaluate him in the office approximately 3 to 4 weeks. If his symptoms persist, repeat radiographs will be taken and advanced imaging may be indicated. Plan: 1. As noted above 2. Follow-up for repeat clinical evaluation Nupur De La Rosa M.D. Department of Orthopaedic Surgery [facility] documented in this encounter[facility] Telephone encounter Note * Telephone Encounter - Bryce Landin RN - 10/09/2024 10:06 AM EST Pts called and is notified of providers message. She voices understanding. Bryce Landin RN [facility]02-13-[facility]25 Miscellaneous Notes* Telephone Encounter - Bryce Landin RN - 10/09/2024 10:06 AM EST Pts called and is notified of providers message. She voices understanding. Bryce Landin RN * Telephone Encounter - Alexus Mendez APRN.CNP - 10/09/2024 8:00 AM EST Creme was ordered. * Telephone Encounter - Bryce Landin RN - 10/08/2024 6:00 PM EST Pt called in and reports they didn't have the Ammonium lactate lotion. Could you please call in thecream for him. The patient has been identified by name and date of : Yes Caregiver verified no other encounters exist for this prescription request: Yes Caregiver confirmed with patient/requestor that no other refills are due, in the near future, with this provider at this time: Yes The last office visit in the department: 10/07/2024 Does the patient have a future office visit with this provider/department: Yes 12/29/2024 Requested Prescriptions Pending Prescriptions Disp Refills ammonium lactate (LAC-HYDRIN) 12 % cream Sig: Apply to affected area as needed. Bryce Landin RN October 08, 2024 6:05 PM * Telephone Encounter - Alicia Cantu LPN - 10/08/2024 4:47 PM EST [facility] sends fax stating that Ammonium lactate lotion should be changed to cream. Called to [facility] villanueva message to call and speak with nurse. Was patient able to orange picker prescription of do they in fact need this changed? documented in this [facility] Telephone encounter Note * Telephone Encounter - Alexus Mendez APRN.CNP - 10/09/2024 8:00 AM EST Creme was ordered. [facility]02-[facility] Telephone encounter Note* Telephone Encounter - Bryce Landin RN - 10/08/2024 6:00 PM EST Pt called in and reports they didn't have the Ammonium lactate lotion. Could you please call in thecream for him. The patient has been identified by name and date of : Yes Caregiver verified no other encounters exist for this prescription request: Yes Caregiver confirmed with patient/requestor that no other refills are due, in the near future, with this provider at this time: Yes The last office visit in the department: 10/07/2024 Does the patient have a future office visit with this provider/department: Yes 12/29/2024 Requested Prescriptions Pending Prescriptions Disp Refills ammonium lactate (LAC-HYDRIN) 12 % cream Sig: Apply to affected area as needed. Bryce Landin RN October 08, 2024 6:05 PM [facility]02-12-[facility] Telephone encounter Note* Telephone Encounter - Alicia Cantu LPN - 10/08/2024 4:47 PM EST [facility] sends fax stating that Ammonium lactate lotion should be changed to cream. Called to Yun phillips to call and speak with nurse. Was patient able to orange picker prescription of do they in fact need this changed? [facility]02-11-[facility] Instructions* Patient Instructions* Alexus Mendez APRN.CNP - 10/07/2024 3:14 PM EST 1) Hydroxyzine 25 mg up to every 6 hours as needed for itching 2) Ammonium Lactate 12% daily for itching 3) Dr. Gould to see you 12/29/24 documented in this encounterW[facility]02-11-[facility]25 NoteHNO ID: [id number] Author: ALEXUS MENDEZ APRN.GUN FERTILIZER Service: ? Author Type: Nurse Practitioner Type: Progress Notes Filed: 10/07/2024 15:14 Note Text: This is a 68 year old male who presents today with: Patient presents with: Rash HISTORY OF PRESENT ILLNESS: Mauri Quinones is a 68 year old male. Patient presents with: Rash Itching on trunk and arms. Back was worse but now better. No rash. Hemodialysis pt. Itching for the past 1 month Right medial and lateral knee aching. Seeing ortho doctor tomorrow PAST MEDICAL HISTORY: PAST MEDICAL HISTORY Diagnosis Date Acute on chronic diastolic congestive heart failure ([facility]) 07/14/2018 GARRET (acute kidney injury) ([facility]) 03/24/2019 GARRET (acute kidney injury) ([facility]) 03/24/2019 Ankylosing spondylitis ([facility]) CAD (coronary artery disease) Cellulitis Chronic combined systolic and diastolic CHF (congestive heart failure) ([facility]) 03/24/2019 CKD (chronic kidney disease) stage 3, GFR 30-59 ml/min ([facility]) 03/24/2019 Constipation Diabetes ([facility]) Gout High phosphate levels 03/24/2019 History of coronary artery bypass graft 04/18/2019 04/10/17 CARTY to LAD, SVG to PDA, SVG to OM Hx of fracture multiple bones Hyperkalemia 03/24/2019 Hypoalbuminemia 03/24/2019 Hyponatremia 03/24/2019 Hypoxia 03/24/2019 Ischemic cardiomyopathy 04/18/2019 Echocardiogram 01/10/19 Dr. Nunez: Dilated left ventricle, left ventricular ejection fraction 40%, mild to moderate systolic dysfunction, moderate concentric LVH, dilated left and right atria. Mild mitral valve thickening with papillary muscle dysfunction, mild mitral valve insufficiency, tricuspid valve insufficiency, aortic valve insufficiency, pulmonic valve insufficiency. Aortic valve calcifi NSTEMI (non-ST elevated myocardial infarction) ([facility]) 03/12/2017 [facility] admit Osteoarthritis Transition of care performed with sharing of clinical summary 04/08/2019 Admit [facility] 03/21/19-03/22/19 Discharge diagnoses chronic kidney disease with worsening creatinine, acute kidney injury Hypokalemia Toxic encephalopathy secondary to Flexeril overusage Type 2 diabetes Ischemic cardiomyopathy Coronary artery disease Ligamental cervical neck strain and acute Pulmonary hypertension Hypertension Pyuria Preadmit: to [facility] ED with slurred speech, lethargy. PAST SURGICAL HISTORY Procedure Laterality Date ARTHRP ACETBLR/PROX FEM PROSTC AGRFT/ALGRFT Right 2019 Dr Peguero CORONARY ARTERY BYPASS GRAFT 04/12/2017 x 3 FEMUR RIGHT OP SURGERY Right Repair of fracture with hardward HIP SURGERY HX Right pin KNEE ARTHROSCOPY Left x2 KNEE SURGERY HX Right TKR, right, arthoscopy x3 PAST SURGICAL HISTORY OF 09/07/2017 08/15/17 fx radius in 2 places; plate and screws.Plate and screws 09/07/17 [facility] TOE SURGERY HX Right ALLERGIES Lyrica [Pregabalin] MEDICATIONS Current Outpatient Medications Medication Sig Tadalafil (CIALIS) 20 mg tablet Take 1 tablet by mouth once daily as needed. Do not take at same time as doxazosin pantoprazole DR (PROTONIX) 40 mg tablet Take 1 tablet by mouth every morning. Insulin [place], Disposable, (BD ULTRA-FINE GOLDY PEN NEEDLE) 32 gauge x Use one needle for each dose. once/day. atorvastatin (LIPITOR) 40 mg tablet Take 1 tablet by mouth daily at bedtime. bumetanide (BUMEX) 2 mg tablet Take 1 tablet by mouth every morning. carvedilol (COREG) 12.5 mg tablet Take 1 tablet by mouth two times a day with meals. LANTUS SOLOSTAR U-100 INSULIN 100 unit/mL (3 mL) Inject 10 Units subcutaneously daily at bedtime. loratadine (CLARITIN) 10 mg tablet Take 1 tablet by mouth once daily. aspirin, enteric coated (ASPIRIN, ENTERIC COATED) 81 mg EC tablet Take 81 mg by mouth once daily. Pt to call and clarify if needs to stop sevelamer carbonate (RENVELA) 800 mg tablet Take 800 mg by mouth three times daily with meals. B Complex-Vitamin C-Folic Acid (NEPHRO-SAVANAH) 0.8 mg tab Take 1 tablet by mouth every morning. melatonin 5 mg tablet Take 10 mg by mouth at bedtime as needed for for insomnia. acetaminophen (TYLENOL EX STR RAPID RELEASE ORAL) Take 1-2 capsules by mouth every 6 hours as needed (pain). doxazosin (CARDURA) 4 mg tablet Take 0.5 tablets by mouth twice daily. latanoprost (XALATAN) 0.005 % ophthalmic solution Use 1 Drop in both eyes daily at bedtime. into affected eye(s). No current facility-administered medications for this visit. FAMILY HISTORY Problem Relation Age of Onset Arthritis Mother Coronary Artery Disease Mother Diabetes Mother Heart Mother Hypertension Mother Alcohol/Drug Father Arthritis Father Heart Father Hypertension Father Social History Tobacco Use Smoking status: Never Smokeless tobacco: Former Types: Chew Quit date: 04/17/2017 Substance Use Topics Alcohol use: No Comment: seldom Drug use: No EXAM: BP 116/64 Pulse 78 Resp 16 Wt 77.1 kg (170 lb) BMI 24.39 kg/m? PHYSICAL EXAM: Physical Exam (more content not included)...[facility]02[facility] History of Present illness Narrative* Alexus Mendez APRN.GUN FERTILIZER - 10/07/2024 3:03 PM EST This is a 68 year old male who presents today with: Patient presents with: Rash HISTORY OF PRESENT ILLNESS: Mauri Quinones is a 68 year old male. Patient presents with: Rash Itching on trunk and arms. Back was worse but now better. No rash. Hemodialysis pt. Itching for the past 1 month Right medial and lateral knee aching. Seeing ortho doctor tomorrow PAST MEDICAL HISTORY: PAST MEDICAL HISTORY Diagnosis Date Acute on chronic diastolic congestive heart failure ([facility]) 07/14/2018 GARRET (acute kidney injury) ([facility]) 03/24/2019 GARRET (acute kidney injury) ([facility]) 03/24/2019 Ankylosing spondylitis ([facility]) CAD (coronary artery disease) Cellulitis Chronic combined systolic and diastolic CHF (congestive heart failure) ([facility]) 03/24/2019 CKD (chronic kidney disease) stage 3, GFR 30-59 ml/min ([facility]) 03/24/2019 Constipation Diabetes ([facility]) Gout High phosphate levels 03/24/2019 History of coronary artery bypass graft 04/18/2019 04/10/17 CARTY to LAD, SVG to PDA, SVG to OM Hx of fracture multiple bones Hyperkalemia 03/24/2019 Hypoalbuminemia 03/24/2019 Hyponatremia 03/24/2019 Hypoxia 03/24/2019 Ischemic cardiomyopathy 04/18/2019 Echocardiogram 01/10/19 Dr. Nunez: Dilated left ventricle, left ventricular ejection fraction 40%, mild to moderate systolic dysfunction, moderate concentric LVH, dilated left and right atria. Mild mitral valve thickening with papillary muscle dysfunction, mild mitral valve insufficiency, tricuspid valve insufficiency, aortic valve insufficiency, pulmonic valve insufficiency. Aortic valve calcifi NSTEMI (non-ST elevated myocardial infarction) (HCC) 03/12/2017 [facility] admit Osteoarthritis Transition of care performed with sharing of clinical summary 04/08/2019 Admit [facility] 03/21/19-03/22/19 Discharge diagnoses chronic kidney disease with worsening creatinine, acute kidney injury Hypokalemia Toxic encephalopathy secondary to Flexeril overusage Type 2 diabetes Ischemic cardiomyopathy Coronary artery disease Ligamental cervical neck strain and acute Pulmonary hypertension Hypertension Pyuria Preadmit: to [facility] ED with slurred speech, lethargy. PAST SURGICAL HISTORY Procedure Laterality Date ARTHRP ACETBLR/PROX FEM PROSTC AGRFT/ALGRFT Right 2019 Dr Peguero CORONARY ARTERY BYPASS GRAFT 04/12/2017 x 3 FEMUR RIGHT OP SURGERY Right Repair of fracture with hardward HIP SURGERY HX Right pin KNEE ARTHROSCOPY Left x2 KNEE SURGERY HX Right TKR, right, arthoscopy x3 PAST SURGICAL HISTORY OF 09/07/2017 08/15/17 fx radius in 2 places; plate and screws.Plate and screws 09/07/17 [facility] TOE SURGERY HX Right ALLERGIES Lyrica [Pregabalin] MEDICATIONS Current Outpatient Medications Medication Sig Tadalafil (CIALIS) 20 mg tablet Take 1 tablet by mouth once daily as needed. Do not take at same time as doxazosin pantoprazole DR (PROTONIX) 40 mg tablet Take 1 tablet by mouth every morning. Insulin [place], Disposable, (BD ULTRA-FINE GOLDY PEN NEEDLE) 32 gauge x Use one needle for each dose. once/day. atorvastatin (LIPITOR) 40 mg tablet Take 1 tablet by mouth daily at bedtime. bumetanide (BUMEX) 2 mg tablet Take 1 tablet by mouth every morning. carvedilol (COREG) 12.5 mg tablet Take 1 tablet by mouth two times a day with meals. LANTUS SOLOSTAR U-100 INSULIN 100 unit/mL (3 mL) Inject 10 Units subcutaneously daily at bedtime. loratadine (CLARITIN) 10 mg tablet Take 1 tablet by mouth once daily. aspirin, enteric coated (ASPIRIN, ENTERIC COATED) 81 mg EC tablet Take 81 mg by mouth once daily. Pt to call and clarify if needs to stop sevelamer carbonate (RENVELA) 800 mg tablet Take 800 mg by mouth three times daily with meals. B Complex-Vitamin C-Folic Acid (NEPHRO-SAVANAH) 0.8 mg tab Take 1 tablet by mouth every morning. melatonin 5 mg tablet Take 10 mg by mouth at bedtime as needed for for insomnia. acetaminophen (TYLENOL EX STR RAPID RELEASE ORAL) Take 1-2 capsules by mouth every 6 hours as needed (pain). doxazosin (CARDURA) 4 mg tablet Take 0.5 tablets by mouth twice daily. latanoprost (XALATAN) 0.005 % ophthalmic solution Use 1 Drop in both eyes daily at bedtime. into affected eye(s). No current facility-administered medications for this visit. FAMILY HISTORY Problem Relation Age of Onset Arthritis Mother Coronary Artery Disease Mother Diabetes Mother Heart Mother Hypertension Mother Alcohol/Drug Father Arthritis Father Heart Father Hypertension Father Social History Tobacco Use Smoking status: Never Smokeless tobacco: Former Types: Chew Quit date: 04/17/2017 Substance Use Topics Alcohol use: No Comment: seldom Drug use: No EXAM: BP 116/64 Pulse 78 Resp 16 Wt 77.1 kg (170 lb) BMI 24.39 kg/m PHYSICAL EXAM: Physical Exam Vitals reviewed. Constitutional: Appearance: Normal appearance. HENT: Head: Normocephalic. Cardiovascular: Rate and Rhythm: Normal rate and regular rhythm. Pulses: Normal pulses. Heart sounds: Normal heart sounds. No murmur heard. No friction rub. No gallop. Pulmonary: Effort: Pulmonary effort is normal. Breath sounds: No wheezing, rhonchi or rales. Comments: Very poor air exchange throughout Abdominal: General: Bowel sounds are normal. Palpations: Abdomen is soft. Musculoskeletal: General: Normal range of motion. Comments: Presents in wheelchair, generalized weakness Skin: General: Skin is warm and dry. Comments: dusky Neurological: Mental Status: He is alert and oriented to person, place, and time. LABS: ASSESSMENT/PLAN: 1. Itching - ICD9: 698.9, ICD10: L29.9 (primary diagnosis) Likely from uremia - AMMONIUM LACTATE 12 % LOTION - HYDROXYZINE HCL 25 MG TABLET - AMMONIUM LACTATE 12 % LOTION - HYDROXYZINE HCL 25 MG TABLET 2. Type 2 diabetes mellitus without complication, with long-term current use of insulin (HCC) - ICD9: 250.00, V58.67, ICD10: E11.9, Z79.4 - Control undetermined, due for labs - Continue current medications - LANTUS SOLOSTAR U-100 INSULIN 100 UNIT/ML (3 ML) SUBCUTANEOUS PEN Discussed treatment plan and patient voices understanding. Patient's questions answered appropriately. Medications and potential side effects were discussed and patient voices understanding. Return to the office as scheduled or as needed for worsening/no improvement. Alexus Mendez APRN.GUN FERTILIZER documented in this encounter[facility] Telephone encounter Note * Telephone Encounter - Aleshia Vázquez - 10/06/2024 12:48 PM EST Patient scheduled with Dr De La Rosa on 10/08/2024 [facility]02-[facility] Miscellaneous Notes* Telephone Encounter - Aleshia Vázquez - 10/06/2024 12:48 PM EST Patient scheduled with Dr De La Rosa on 10/08/2024 * Telephone Encounter - Li Bunch - 10/06/2024 11:53 AM EST Per , he did speak to the patient. Please offer one of the open slots on 10/08. * Telephone Encounter - Laura Ardon - 10/06/2024 10:49 AM EST Spoke with pt on the phone. Pt stated he spoke with dr de la rosa Sunday night and that dr de la rosa said he needs to be seen in office dewayne. And states de la rosa said by sun- dr de la rosa does not have anyopen appt times by then I offered pt appt on 10/10 with maco rivera. Pt declined. Stating he saw him 2 weeks ago I offered pt appt with dr de la rosa on 10/17. Pt states he can not wait that long Pt was very persistent about seeing dr de la rosa and became irritated with the options I was offeringhim Pt stated he wanted to speak with Mario- that dr de la rosa recommend he speak to her. I informed pt that mario does not eliza appts. Please advise when to eliza pt Laura Duglas * Telephone Encounter - Li Bunch - 10/06/2024 9:21 AM EST Patient called for an appt with Dr. De La Rosa, no reason given. documented in this encounterW[facility] Telephone encounter Note * Telephone Encounter - Li Bunch - 10/06/2024 11:53 AM EST Per , he did speak to the patient. Please offer one of the open slots on 10/08. [facility]02-10-2025 Telephone encounter Note* Telephone Encounter - Laura Ardon - 10/06/2024 10:49 AM EST Spoke with pt on the phone. Pt stated he spoke with dr de la rosa Satur night and that dr de la rosa said he needs to be seen in office dewayne. And states de la rosa said by sun- dr de la rosa does not have anyopen appt times by then I offered pt appt on 10/10 with maco rivera. Pt declined. Stating he saw him 2 weeks ago I offered pt appt with dr de la rosa on 10/17. Pt states he can not wait that long Pt was very persistent about seeing dr de la rosa and became irritated with the options I was offeringhim Pt stated he wanted to speak with Mario- that dr de la rosa recommend he speak to her. I informed pt that mario does not eliza appts. Please advise when to eliza pt Laura Redford [facility]02-10-2025 Telephone encounter Note* Telephone Encounter - Li Bunch - 10/06/2024 9:21 AM EST Patient called for an appt with Dr. De La Rosa, no reason given. [facility]02-07-2025 NoteHNO ID: [id number] Author: NUPUR DE LA ROSA MD Service: ? Author Type: Physician Type: Progress Notes Filed: 10/03/2024 19:23 Note Text: Mr. Quinones calls today stating he has increased pain in his right knee that has been treated in the past with a total knee arthroplasty and retrograde femoral nail for a periprosthetic fracture he was seen recently by CHELSI Mosqueda for increase in right knee pain. X-rays showed no acute pathology. Patient reports he continues to have pain with weightbearing a prescription for tramadol had been issued today but is providing him with no relief. Upon reviewing of his records I have offered him a prescription of [place] and recommended that he return to the use of his walker and toe-touch weightbearing. If he has no improvement over the weekend he is to call the office on Sunday to schedule follow-up appointment. I also explained that this is the last prescription for pain medication that can be called in until he is evaluated in the office. Patient's request for medication is as follows Requested Prescriptions Signed Prescriptions Disp Refills HYDROcodone-acetaminophen (NORCO) 5-325 mg per tablet 8 tablet 0 Sig: Take 1 tablet by mouth every 8 hours as needed for pain for up to 3 days. Order entered - please phone pharmacy and notify patient. Nupur De La Rosa, [facility]02-07-2025 History of Present illness Narrative* Nupur De La Rosa MD - 10/03/2024 7:21 PM EST Mr. Quinones calls today stating he has increased pain in his right knee that has been treated in the past with a total knee arthroplasty and retrograde femoral nail for a periprosthetic fracture he was seen recently by CHELSI Mosqueda for increase in right knee pain. X-rays showed no acute pathology. Patient reports he continues to have pain with weightbearing a prescription for tramadol had been issued today but is providing him with no relief. Upon reviewing of his records I have offered him a prescription of [place] and recommended that he return to the use of his walker and toe-touch weightbearing. If he has no improvement over the weekend he is to call the office on Sunday to schedule f ollow-up appointment. I also explained that this is the last prescription for pain medication that can be called in until he is evaluated in the office. Patient's request for medication is as follows Requested Prescriptions Signed Prescriptions Disp Refills HYDROcodone-acetaminophen (NORCO) 5-325 mg per tablet 8 tablet 0 Sig: Take 1 tablet by mouth every 8 hours as needed for pain for up to 3 days. Order entered - please phone pharmacy and notify patient. Nupur De La Rosa MD documented in this encounterW[facility]02-07-2025 Telephone encounter Note * Telephone Encounter - Isabela Stahl RN - 10/03/2024 6:50 PM EST Patient calling regarding pain medication regimen. Transferred to [facility] Building [facility] electronic development technician provider for orthopedics. [facility]02-07-2025 Miscellaneous Notes* Telephone Encounter - Isabela Stahl RN - 10/03/2024 6:50 PM EST Patient calling regarding pain medication regimen. Transferred to [facility] Building App[facility] electronic development technician provider for orthopedics. documented in this encounterW[facility]01-27-2025 NoteHNO ID: [id number] Author: MACO RIVERA PA-C Service: ? Author Type: Physician Strategic Partnership Manager Type: Progress Notes Filed: 09/22/2024 16:18 Note Text: SERVICE DATE: September 22, 2024 PCP: Rigoberto Gould MD Patient was self-referred. Subjective Patient ID: Ted is a 68 year old male. Chief Complaint: Patient presents with: Right Hip - New, Pain PAIN EVALUATION 09/22/2024 1351 Pain Location: Hip-Right Description: Radiating;Sharp;Sore;Aching radiates through the thigh to knee (along the past incision surgical line) Frequency: Intermittent Intervention/Comfort measure: Medication;Support surface;Imagery tylenol Comments: wearing hinged brace Ted comes today c/o right knee pain. [place] [address] Peguero and Ted states he did well until he had a per-prosthetic femur fracture. He had the fracture plated then went on the break the plate, requiring a retrograde minesh which was done in March of 2023. Ted said he was doing well until a month ago. He denies trauma but has had increased pain and swelling of the right knee. He wears a TROM brace when up and uses a walker for ambulation. Ted takes 1,500 mg of tylenol at night and feels it does help a little. He comes to see if the components are ok and if anything needs to be done. TREATMENTS PRIOR TO INITIAL CONSULT: Right Bracing: TROM brace Right knee multiple surgeries, last one was a retrograde minesh for a sandy-prosthetic knee fracture surgery; Date: March 2023 Tylenol 1,500 mg daily Review of Systems All other systems reviewed and are negative. 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 Arteriosclerotic Heart Disease ([facility]) Glaucoma Suspect of Left Eye Hypertension, Essential Acute On Chronic Diastolic Congestive Heart Failure ([facility]) Pvd (Peripheral Vascular Disease) ([facility]) Chronic Combined Systolic and Diastolic Chf (Congestive Heart Failure) ([facility]) Ischemic Cardiomyopathy History of Coronary Artery Bypass Graft History of Ventricular Tachycardia 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 Due to Underlying Condition ([facility]) Osteopenia, Senile Other Fracture of Right Femur, Initial Encounter for Closed Fracture ([facility]) Blood Loss Anemia Johny (Obstructive Sleep Apnea) Thoracic Compression Fracture, Closed, Initial Encounter ([facility]) Esrd (End Stage Renal Disease) On Dialysis ([facility]) Fracture, Femur, Supracondylar, Right, Open Type I Or II, Initial Encounter ([facility]) Abnormal Ekg Chronic Kidney Disease (Ckd), Stage V ([facility]) Hx of Cabg Preoperative Examination PAST MEDICAL HISTORY Diagnosis Date Acute on chronic diastolic congestive heart failure ([facility]) 07/14/2018 GARRET (acute kidney injury) ([facility]) 03/24/2019 GARRET (acute kidney injury) ([facility]) 03/24/2019 Ankylosing spondylitis ([facility]) CAD (coronary artery disease) Cellulitis Chronic combined systolic and diastolic CHF (congestive heart failure) ([facility]) 03/24/2019 CKD (chronic kidney disease) stage 3, GFR 30-59 ml/min ([facility]) 03/24/2019 Constipation Diabetes ([facility]) Gout High phosphate levels 03/24/2019 History of coronary artery bypass graft 04/18/2019 04/10/17 CARTY to LAD, SVG to PDA, SVG to OM Hx of fracture multiple bones Hyperkalemia 03/24/2019 Hypoalbuminemia 03/24/2019 Hyponatremia 03/24/2019 Hypoxia 03/24/2019 Ischemic cardiomyopathy 04/18/2019 Echocardiogram 01/10/19 Dr. Nunez: Dilated left ventricle, left ventricular ejection fraction 40%, mild to moderate systolic dysfunction, moderate concentric LVH, dilated left and right atria. Mild mitral valve thickening with papillary muscle dysfunction, mild mitral valve insufficiency, tricuspid valve insufficiency, aortic valve insufficiency, pulmonic valve insufficiency. Aortic valve calcifi NSTEMI (non-ST elevated myocardial infarction) ([facility]) 03/12/2017 [facility] admit Osteoarthritis Transition of care performed with sharing of clinical summary 04/08/2019 Admit [facility] 03/21/19-03/22/19 Discharge diagnoses chronic kidney disease with worsening creatinine, acute kidney injury Hypokalemia Toxic encephalopathy secondary to Flexeril overusage Type 2 diabetes Ischemic cardiomyopathy Coronary artery disease Ligamental cervical neck strain and acute Pulmonary hypertension Hypertension Pyuria Preadmit: to [facility] ED with slurred speech, lethargy. PAST SURGICAL HISTORY Procedure Laterality Date ARTHRP ACETBLR/PROX FEM PROSTC AGRFT/ALGRFT Right 2019 Dr Peguero CORONARY ARTERY BYPASS GRAFT 04/12/2017 x 3 FEMUR RIGHT OP SURGERY Right Repair of fracture with hardward HIP SURGERY HX Right pin KNEE ARTHROSCOPY Left x2 KNEE SURGERY HX Right TKR, right, arthoscopy x3 PAST SURGICAL HISTORY OF 09/07/2017 08/15/17 fx radius in 2 places; plate and screws.Plate and screws 09/07/17 [facility] (more content not included)...[facility]01-27-2025 History of Present illness Narrative* Maco Rivera PA-C - 09/22/2024 2:26 PM EST Images from the original note were not included. SERVICE DATE: September 22, 2024 PCP: Rigoberto Gould MD Patient was self-referred. Subjective Patient ID: Ted is a 68 year old male. Chief Complaint: Patient presents with: Right Hip - New, Pain PAIN EVALUATION 09/22/2024 1351 Pain Location: Hip-Right Description: Radiating;Sharp;Sore;Aching radiates through the thigh to knee (along the past incision surgical line) Frequency: Intermittent Intervention/Comfort measure: Medication;Support surface;Imagery tylenol Comments: wearing hinged brace Ted comes today c/o right knee pain. [place] [address] Peguero and Ted states he did well until he had a per-prosthetic femur fracture. He had the fracture plated then went on thebreak the plate, requiring a retrograde minesh which was done in March of 2023. Ted said he was doing well until a month ago. He denies trauma but has had increased pain and swelling of the right knee. He wears a TROM brace when up and uses a walker for ambulation. Ted takes 1,500 mg of tylenol at night and feels it does help a little. He comes to see if the components are ok and if anything needs to be done. TREATMENTS PRIOR TO INITIAL CONSULT: Right Bracing: TROM brace Right knee multiple surgeries, last one was a retrograde minesh for a sandy- prosthetic knee fracture surgery; Date: March 2023 Tylenol 1,500 mg daily Review of Systems All other systems reviewed and are negative. 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 Arteriosclerotic Heart Disease ([facility]) Glaucoma Suspect of Left Eye Hypertension, Essential Acute On Chronic Diastolic Congestive Heart Failure ([facility]) Pvd (Peripheral Vascular Disease) ([facility]) Chronic Combined Systolic and Diastolic Chf (Congestive Heart Failure) ([facility]) Ischemic Cardiomyopathy History of Coronary Artery Bypass Graft History of Ventricular Tachycardia 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 Due to Underlying Condition ([facility]) Osteopenia, Senile Other Fracture of Right Femur, Initial Encounter for Closed Fracture ([facility]) Blood Loss Anemia Johny (Obstructive Sleep Apnea) Thoracic Compression Fracture, Closed, Initial Encounter ([facility]) Esrd (End Stage Renal Disease) On Dialysis ([facility]) Fracture, Femur, Supracondylar, Right, Open Type I Or II, Initial Encounter ([facility]) Abnormal Ekg Chronic Kidney Disease (Ckd), Stage V ([facility]) Hx of Cabg Preoperative Examination PAST MEDICAL HISTORY Diagnosis Date Acute on chronic diastolic congestive heart failure ([facility]) 07/14/2018 GARRET (acute kidney injury) ([facility]) 03/24/2019 GARRET (acute kidney injury) ([facility]) 03/24/2019 Ankylosing spondylitis ([facility]) CAD (coronary artery disease) Cellulitis Chronic combined systolic and diastolic CHF (congestive heart failure) ([facility]) 03/24/2019 CKD (chronic kidney disease) stage 3, GFR 30-59 ml/min ([facility]) 03/24/2019 Constipation Diabetes ([facility]) Gout High phosphate levels 03/24/2019 History of coronary artery bypass graft 04/18/2019 04/10/17 CARTY to LAD, SVG to PDA, SVG to OM Hx of fracture multiple bones Hyperkalemia 03/24/2019 Hypoalbuminemia 03/24/2019 Hyponatremia 03/24/2019 Hypoxia 03/24/2019 Ischemic cardiomyopathy 04/18/2019 Echocardiogram 01/10/19 Dr. Nunez: Dilated left ventricle, left ventricular ejection fraction 40%, mild to moderate systolic dysfunction, moderate concentric LVH, dilated left and right atria. Mild mitral valve thickening with papillary muscle dysfunction, mild mitral valve insufficiency, tricuspid valve insufficiency, aortic valve insufficiency, pulmonic valve insufficiency. Aortic valve calcifi NSTEMI (non-ST elevated myocardial infarction) ([facility]) 03/12/2017 [facility] admit Osteoarthritis Transition of care performed with sharing of clinical summary 04/08/2019 Admit [facility] 03/21/19-03/22/19 Discharge diagnoses chronic kidney disease with worsening creatinine, acute kidney injury Hypokalemia Toxic encephalopathy secondary to Flexeril overusage Type 2 diabetes Ischemic cardiomyopathy Coronary artery disease Ligamental cervical neck strain and acute Pulmonary hypertension Hypertension Pyuria Preadmit: to [facility] ED with slurred speech, lethargy. PAST SURGICAL HISTORY Procedure Laterality Date ARTHRP ACETBLR/PROX FEM PROSTC AGRFT/ALGRFT Right 2019 Dr Peguero CORONARY ARTERY BYPASS GRAFT 04/12/2017 x 3 FEMUR RIGHT OP SURGERY Right Repair of fracture with hardward HIP SURGERY HX Right pin KNEE ARTHROSCOPY Left x2 KNEE SURGERY HX Right TKR, right, arthoscopy x3 PAST SURGICAL HISTORY OF 09/07/2017 08/15/17 fx radius in 2 places; plate and screws.Plate and screws 09/07/17 [facility] TOE SURGERY HX Right FAMILY HISTORY Problem Relation Age of Onset Arthritis Mother Coronary Artery Disease Mother Diabetes Mother Heart Mother Hypertension Mother Alcohol/Drug Father Arthritis Father Heart Father Hypertension Father Social History Tobacco Use Smoking status: Never Smokeless tobacco: Former Types: Chew Quit date: 04/17/2017 Substance Use Topics Alcohol use: No Comment: seldom Drug use: No ALLERGIES Allergen Reactions Lyrica [Pregabalin] Swelling MEDICATIONS: Tadalafil (CIALIS) 20 mg tablet Take 1 tablet by mouth once daily as needed. Do not take at same time as doxazosin pantoprazole DR (PROTONIX) 40 mg tablet Take 1 tablet by mouth every morning. Insulin [place], Disposable, (BD ULTRA-FINE GOLDY PEN NEEDLE) 32 gauge x Use one needle for each dose. once/day. atorvastatin (LIPITOR) 40 mg tablet Take 1 tablet by mouth daily at bedtime. bumetanide (BUMEX) 2 mg tablet Take 1 tablet by mouth every morning. carvedilol (COREG) 12.5 mg tablet Take 1 tablet by mouth two times a day with meals. LANTUS SOLOSTAR U-100 INSULIN 100 unit/mL (3 mL) Inject 10 Units subcutaneously daily at bedtime. loratadine (CLARITIN) 10 mg tablet Take 1 tablet by mouth once daily. traMADol (ULTRAM) 50 mg tablet Take 50 mg by mouth every 6 hours as needed for pain. aspirin, enteric coated (ASPIRIN, ENTERIC COATED) 81 mg EC tablet Take 81 mg by mouth once daily. Pt to call and clarify if needs to stop sevelamer carbonate (RENVELA) 800 mg tablet Take 800 mg by mouth three times daily with meals. B Complex-Vitamin C-Folic Acid (NEPHRO-SAVANAH) 0.8 mg tab Take 1 tablet by mouth every morning. melatonin 5 mg tablet Take 10 mg by mouth at bedtime as needed for for insomnia. acetaminophen (TYLENOL EX STR RAPID RELEASE ORAL) Take 1-2 capsules by mouth every 6 hours as needed (pain). doxazosin (CARDURA) 4 mg tablet Take 0.5 tablets by mouth twice daily. latanoprost (XALATAN) 0.005 % ophthalmic solution Use 1 Drop in both eyes daily at bedtime. into affected eye(s). Allergies, medications, past surgical history, family history and past medical history were reviewed per this encounter. Objective Right Knee Exam Tenderness The patient is experiencing tenderness in the lateral joint line and medial joint line. Range of Motion Extension: -15 Flexion: 100 Tests Varus: positive Valgus: positive Patellar apprehension: negative Other Erythema: absent Scars: present Pulse: present Swelling: moderate Effusion: effusion present X-RAYS AP pelvis and 2 views of the right femur show a well positioned ,well fixed total hip. The knee is also visualized and the knee is well fixed with signs of early poly wear-minimal osteolysis around the medial tibial plate. Assessment/Plan ASSESSMENT Diagnosis (T84.028A, Z96.659) Instability of prosthetic knee, initial encounter ([facility]) ([facility]) (primary encounter diagnosis) (M62.81) Weakness of right quadriceps muscle (Z96.651) Status post total right knee replacement (Z96.641) Status post total replacement of right hip No orders found for this visit on 09/22/24. PLAN Ted is not a good surgical candidate and he wants to avoid surgery if at all possible. He will continue to use the TROM and walker. Instructed in quad sets and sheet given to Ted. Tylenol 1,000 mg three times a day for pain. FOLLOW-UP: No follow-ups on file. 3 months SIGNATURE: Maco Rivera PA-C PATIENT NAME: Mauri Quinones DATE: September 22, 2024 TIME: 2:28 PM documented in this encounterW[facility]-27[facility] History of Present illness Narrative* Stormy Nolan Tech - 09/22/2024 1:50 PM EST Radiology Service Progress Note PATIENT NAME: Mauri Quinones DATE OF SERVICE: September 22, 2024 TIME: 1:57 PM PATIENT IDENTITY VERIFICATION COMPLETED USING TWO (2) IDENTIFIERS: Name and Date of confirmedby patient verbally. FALL SCREENING: Has the patient had 2 falls in the last year or 1 fall with injury or currently using an Ambulatory Assistive Device (Walker, Cane, Wheelchair, Crutches, etc.)? No PATIENT GENDER DATA: Assigned male at PATIENT RELEVANT IMPLANT DATA REVIEWED: Not Applicable PATIENT PRESENTS WITH AN IMPLANTABLE OR ATTACHED EDGE BLACKER: No RADIOLOGY DEPARTMENT: General X-ray: Exam(s) Completed: Pelvis X-Ray: Pelvis General AP Lower Extremity X-Ray(s): Femur, Right PERIPHERAL IV DATA: Not applicable SIGNED BY: Robert Maxwell September 22, 2024 1:57 PM documented in this encounterWvumedicine [facility]01-27-2025 NoteHNO ID: [id number] Author: STORMY NOLAN Tech Service: ? Author Type: Graduate Nurse Type: Progress Notes Filed: 09/22/2024 13:57 Note Text: Radiology Service Progress Note PATIENT NAME: Mauri Quinones DATE OF SERVICE: September 22, 2024 TIME: 1:57 PM PATIENT IDENTITY VERIFICATION COMPLETED USING TWO (2) IDENTIFIERS: Name and Date of confirmed by patient verbally. FALL SCREENING: Has the patient had 2 falls in the last year or 1 fall with injury or currently using an Ambulatory Assistive Device (Walker, Cane, Wheelchair, Crutches, etc.)? No PATIENT GENDER DATA: Assigned male at PATIENT RELEVANT IMPLANT DATA REVIEWED: Not Applicable PATIENT PRESENTS WITH AN IMPLANTABLE OR ATTACHED EDGE BLACKER: No RADIOLOGY DEPARTMENT: General X-ray: Exam(s) Completed: Pelvis X-Ray: Pelvis General AP Lower Extremity X-Ray(s): Femur, Right PERIPHERAL IV DATA: Not applicable SIGNED BY: Robert Maxwell September 22, 2024 1:57 PMK[id number] Instructions* Patient Instructions* Alexus Mendez APRN.CNP - 09/04/2024 8:26 AM EST 1) Zofran ordered every 8 hours as needed for nausea and vomiting 2) Ok for acetaminophen as needed 3) See Dr. Gould in December as scheduled Consider holding Bumex if not able to get fluids in or having diarrhea/ vomiting documented in this encounterWvumedicine [facility]01-09-2025 NoteHNO ID: [id number] Author: ALEXUS MENDEZ APRN.CNP Service: ? Author Type: Clinical Nurse Specialist Type: Progress Notes Filed: 09/04/2024 08:32 Note Text: This is a 68 year old male who presents today with: Patient presents with: Acute Visit: Diarrhea and vomiting for 1 week, starting to subside. No fever HISTORY OF PRESENT ILLNESS: Mauri Quinones is a 68 year old male. Patient presents with: Acute Visit: Diarrhea and vomiting for 1 week, starting to subside. No fever States he is feeling better, today. Still, too late for dialysis today. Vomited only twice. Drinking at least 28 oz. Gatorade. Taking pepto-bismol, coricidin HBP Had diarrhea and cramps. No further abdominal pain. Last night feeling better. Sick for 5 days A little weak. Hasn't eaten much . Didn't even check blood sugar today Has not gained weight PAST MEDICAL HISTORY: PAST MEDICAL HISTORY Diagnosis Date Acute on chronic diastolic congestive heart failure (HCC) 07/14/2018 GARRET (acute kidney injury) ([facility]) 03/24/2019 GARRET (acute kidney injury) ([facility]) 03/24/2019 Ankylosing spondylitis ([facility]) CAD (coronary artery disease) Cellulitis Chronic combined systolic and diastolic CHF (congestive heart failure) ([facility]) 03/24/2019 CKD (chronic kidney disease) stage 3, GFR 30-59 ml/min ([facility]) 03/24/2019 Constipation Diabetes ([facility]) Gout High phosphate levels 03/24/2019 History of coronary artery bypass graft 04/18/2019 04/10/17 CARTY to LAD, SVG to PDA, SVG to OM Hx of fracture multiple bones Hyperkalemia 03/24/2019 Hypoalbuminemia 03/24/2019 Hyponatremia 03/24/2019 Hypoxia 03/24/2019 Ischemic cardiomyopathy 04/18/2019 Echocardiogram 01/10/19 Dr. Nunez: Dilated left ventricle, left ventricular ejection fraction 40%, mild to moderate systolic dysfunction, moderate concentric LVH, dilated left and right atria. Mild mitral valve thickening with papillary muscle dysfunction, mild mitral valve insufficiency, tricuspid valve insufficiency, aortic valve insufficiency, pulmonic valve insufficiency. Aortic valve calcifi NSTEMI (non-ST elevated myocardial infarction) (HCC) 03/12/2017 [facility] admit Osteoarthritis Transition of care performed with sharing of clinical summary 04/08/2019 Admit [facility] 03/21/19-03/22/19 Discharge diagnoses chronic kidney disease with worsening creatinine, acute kidney injury Hypokalemia Toxic encephalopathy secondary to Flexeril overusage Type 2 diabetes Ischemic cardiomyopathy Coronary artery disease Ligamental cervical neck strain and acute Pulmonary hypertension Hypertension Pyuria Preadmit: to [facility] ED with slurred speech, lethargy. PAST SURGICAL HISTORY Procedure Laterality Date ARTHRP ACETBLR/PROX FEM PROSTC AGRFT/ALGRFT Right 2019 Dr Peguero CORONARY ARTERY BYPASS GRAFT 04/12/2017 x 3 FEMUR RIGHT OP SURGERY Right Repair of fracture with hardward HIP SURGERY HX Right pin KNEE ARTHROSCOPY Left x2 KNEE SURGERY HX Right TKR, right, arthoscopy x3 PAST SURGICAL HISTORY OF 09/07/2017 08/15/17 fx radius in 2 places; plate and screws.Plate and screws 09/07/17 [facility] TOE SURGERY HX Right ALLERGIES Lyrica [Pregabalin] MEDICATIONS Current Outpatient Medications Medication Sig Tadalafil (CIALIS) 20 mg tablet Take 1 tablet by mouth once daily as needed. Do not take at same time as doxazosin pantoprazole DR (PROTONIX) 40 mg tablet Take 1 tablet by mouth every morning. Insulin [place], Disposable, (BD ULTRA-FINE GOLDY PEN NEEDLE) 32 gauge x Use one needle for each dose. once/day. atorvastatin (LIPITOR) 40 mg tablet Take 1 tablet by mouth daily at bedtime. bumetanide (BUMEX) 2 mg tablet Take 1 tablet by mouth every morning. carvedilol (COREG) 12.5 mg tablet Take 1 tablet by mouth two times a day with meals. LANTUS SOLOSTAR U-100 INSULIN 100 unit/mL (3 mL) Inject 10 Units subcutaneously daily at bedtime. loratadine (CLARITIN) 10 mg tablet Take 1 tablet by mouth once daily. traMADol (ULTRAM) 50 mg tablet Take 50 mg by mouth every 6 hours as needed for pain. aspirin, enteric coated (ASPIRIN, ENTERIC COATED) 81 mg EC tablet Take 81 mg by mouth once daily. Pt to call and clarify if needs to stop sevelamer carbonate (RENVELA) 800 mg tablet Take 800 mg by mouth three times daily with meals. B Complex-Vitamin C-Folic Acid (NEPHRO-SAVANAH) 0.8 mg tab Take 1 tablet by mouth every morning. melatonin 5 mg tablet Take 10 mg by mouth at bedtime as needed for for insomnia. acetaminophen (TYLENOL EX STR RAPID RELEASE ORAL) Take 1-2 capsules by mouth every 6 hours as needed (pain). doxazosin (CARDURA) 4 mg tablet Take 0.5 tablets by mouth twice daily. latanoprost (XALATAN) 0.005 % ophthalmic solution Use 1 Drop in both eyes daily at bedtime. into affected eye(s). No current facility-administered medications for this visit. FAMILY HISTORY Problem Relation Age of Onset Arthritis Mother Coronary Artery Disease Mother Diabetes Mother H (more content not included)...[facility]01-09-2025 History of Present illness Narrative* Alexus Mendez, [place] - 09/04/2024 8:10 AM EST This is a 68 year old male who presents today with: Patient presents with: Acute Visit: Diarrhea and vomiting for 1 week, starting to subside. No fever HISTORY OF PRESENT ILLNESS: Mauri Quinones is a 68 year old male. Patient presents with: Acute Visit: Diarrhea and vomiting for 1 week, starting to subside. No fever States he is feeling better, today. Still, too late for dialysis today. Vomited only twice. Drinking at least 28 oz. Gatorade. Taking pepto-bismol, coricidin HBP Had diarrhea and cramps. No further abdominal pain. Last night feeling better. Sick for 5 days A little weak. Hasn't eaten much . Didn't even check blood sugar today Has not gained weight PAST MEDICAL HISTORY: PAST MEDICAL HISTORY Diagnosis Date Acute on chronic diastolic congestive heart failure (HCC) 07/14/2018 GARRET (acute kidney injury) (HCC) 03/24/2019 GARRET (acute kidney injury) (HCC) 03/24/2019 Ankylosing spondylitis (HCC) CAD (coronary artery disease) Cellulitis Chronic combined systolic and diastolic CHF (congestive heart failure) ([facility]) 03/24/2019 CKD (chronic kidney disease) stage 3, GFR 30-59 ml/min ([facility]) 03/24/2019 Constipation Diabetes ([facility]) Gout High phosphate levels 03/24/2019 History of coronary artery bypass graft 04/18/2019 04/10/17 CARTY to LAD, SVG to PDA, SVG to OM Hx of fracture multiple bones Hyperkalemia 03/24/2019 Hypoalbuminemia 03/24/2019 Hyponatremia 03/24/2019 Hypoxia 03/24/2019 Ischemic cardiomyopathy 04/18/2019 Echocardiogram 01/10/19 Dr. Nunez: Dilated left ventricle, left ventricular ejection fraction 40%, mild to moderate systolic dysfunction, moderate concentric LVH, dilated left and right atria. Mild mitral valve thickening with papillary muscle dysfunction, mild mitral valve insufficiency, tricuspid valve insufficiency, aortic valve insufficiency, pulmonic valve insufficiency. Aortic valve calcifi NSTEMI (non-ST elevated myocardial infarction) ([facility]) 03/12/2017 [facility] admit Osteoarthritis Transition of care performed with sharing of clinical summary 04/08/2019 Admit [facility] 03/21/19-03/22/19 Discharge diagnoses chronic kidney disease with worsening creatinine, acute kidney injury Hypokalemia Toxic encephalopathy secondary to Flexeril overusage Type 2 diabetes Ischemic cardiomyopathy Coronary artery disease Ligamental cervical neck strain and acute Pulmonary hypertension Hypertension Pyuria Preadmit: to [facility] ED with slurred speech, lethargy. PAST SURGICAL HISTORY Procedure Laterality Date ARTHRP ACETBLR/PROX FEM PROSTC AGRFT/ALGRFT Right 2019 Dr Peguero CORONARY ARTERY BYPASS GRAFT 04/12/2017 x 3 FEMUR RIGHT OP SURGERY Right Repair of fracture with hardward HIP SURGERY HX Right pin KNEE ARTHROSCOPY Left x2 KNEE SURGERY HX Right TKR, right, arthoscopy x3 PAST SURGICAL HISTORY OF 09/07/2017 08/15/17 fx radius in 2 places; plate and screws.Plate and screws 09/07/17 [facility] TOE SURGERY HX Right ALLERGIES Lyrica [Pregabalin] MEDICATIONS Current Outpatient Medications Medication Sig Tadalafil (CIALIS) 20 mg tablet Take 1 tablet by mouth once daily as needed. Do not take at same time as doxazosin pantoprazole DR (PROTONIX) 40 mg tablet Take 1 tablet by mouth every morning. Insulin [place], Disposable, (BD ULTRA-FINE GOLDY PEN NEEDLE) 32 gauge x 5/32 Use one needle for each dose. once/day. atorvastatin (LIPITOR) 40 mg tablet Take 1 tablet by mouth daily at bedtime. bumetanide (BUMEX) 2 mg tablet Take 1 tablet by mouth every morning. carvedilol (COREG) 12.5 mg tablet Take 1 tablet by mouth two times a day with meals. LANTUS SOLOSTAR U-100 INSULIN 100 unit/mL (3 mL) Inject 10 Units subcutaneously daily at bedtime. loratadine (CLARITIN) 10 mg tablet Take 1 tablet by mouth once daily. traMADol (ULTRAM) 50 mg tablet Take 50 mg by mouth every 6 hours as needed for pain. aspirin, enteric coated (ASPIRIN, ENTERIC COATED) 81 mg EC tablet Take 81 mg by mouth once daily. Pt to call and clarify if needs to stop sevelamer carbonate (RENVELA) 800 mg tablet Take 800 mg by mouth three times daily with meals. B Complex-Vitamin C-Folic Acid (NEPHRO-SAVANAH) 0.8 mg tab Take 1 tablet by mouth every morning. melatonin 5 mg tablet Take 10 mg by mouth at bedtime as needed for for insomnia. acetaminophen (TYLENOL EX STR RAPID RELEASE ORAL) Take 1-2 capsules by mouth every 6 hours as needed (pain). doxazosin (CARDURA) 4 mg tablet Take 0.5 tablets by mouth twice daily. latanoprost (XALATAN) 0.005 % ophthalmic solution Use 1 Drop in both eyes daily at bedtime. into affected eye(s). No current facility-administered medications for this visit. FAMILY HISTORY Problem Relation Age of Onset Arthritis Mother Coronary Artery Disease Mother Diabetes Mother Heart Mother Hypertension Mother Alcohol/Drug Father Arthritis Father Heart Father Hypertension Father Social History Tobacco Use Smoking status: Never Smokeless tobacco: Former Types: Chew Quit date: 04/17/2017 Substance Use Topics Alcohol use: No Comment: seldom Drug use: No EXAM: BP 142/86 Pulse 91 Temp 36.1 C (97 F) (Tympanic) SpO2 93% PHYSICAL EXAM: Physical Exam Vitals reviewed. Constitutional: Appearance: Normal appearance. HENT: Head: Normocephalic. Cardiovascular: Rate and Rhythm: Normal rate. Pulses: Normal pulses. Comments: Regular- Irregular Soft ANA @ sternal border Pulmonary: Effort: Pulmonary effort is normal. Breath sounds: Normal breath sounds. Abdominal: Palpations: Abdomen is soft. Tenderness: There is no guarding or rebound. Musculoskeletal: General: Normal range of motion. Comments: Right leg pain- not new (apt. With ortho pending) Skin: General: Skin is warm and dry. Neurological: Mental Status: He is alert and oriented to person, place, and time. Psychiatric: Mood and Affect: Mood normal. Behavior: Behavior normal. LABS: ASSESSMENT/PLAN: 1. Nausea - ICD9: 787.02, ICD10: R11.0 (primary diagnosis) Improved - ONDANSETRON HCL 4 MG TABLET every 8 hours as needed 2. Gastroenteritis - ICD9: 558.9, ICD10: K52.9 Improved 3. ESRD (end stage renal disease) on dialysis (HCC) - ICD9: 585.6, V45.11, ICD10: N18.6, Z99.2 - eGFR: Stable - Ok for acetaminophen prn Discussed treatment plan and patient voices understanding. Patient's questions answered appropriately. Medications and potential side effects were discussed and patient voices understanding. Return to the office as scheduled or as needed for worsening/no improvement. Alexus Mendez APRN.GUN FERTILIZER documented in this encounterWvumed[facility]01-08-2025 Telephone encounter Note * Telephone Encounter - Rigoberto Gould MD - 09/03/2024 3:23 PM EST Agree with Er. She would just send him tomorrow if he came in. [facility]01-08-[facility] Miscellaneous Notes* Telephone Encounter - Rigoberto Gould MD - 09/03/2024 3:23 PM EST Agree with Er. She would just send him tomorrow if he came in. * Telephone Encounter - Rebecca Moe LPN - 09/03/2024 3:12 PM EST Patient calling said he has had the flu since Sunday last week. He has not been able to go to dialysis this week. His days are Sunday, and Sunday, last day there was last . He is complaining of abdominal pain, left sided area above his umbilical area, all day today. He has vomited twice today and diarrhea just keeps going on. Advised patient would need evaluated in the ER since no dialysis this week and the abdominal pain. He has appt scheduled for tomorrow with J Suppan at 8 am. documented in this encounterWvumed[facility]01-08-2025 Telephone encounter Note * Telephone Encounter - Rebecca Moe LPN - 09/03/2024 3:12 PM EST Patient calling said he has had the flu since Sunday last week. He has not been able to go to dialysis this week. His days are Sunday, and Sunday, last day there was last . He is complaining of abdominal pain, left sided area above his umbilical area, all day today. He has vomited twice today and diarrhea just keeps going on. Advised patient would need evaluated in the ER since no dialysis this week and the abdominal pain. He has appt scheduled for tomorrow with J Suppan at 8 am. [facility]01-06-[facility] Telephone encounter Note* Telephone Encounter - Bryce Landin RN - 09/01/2024 2:07 PM EST Sent message to Pt in [employer] as he asked. [facility]01-06-2025 Miscellaneous Notes* Telephone Encounter - Bryce Landin RN - 09/01/2024 2:07 PM EST Sent message to Pt in [employer] as he asked. * Telephone Encounter - Rigoberto Gould MD - 09/01/2024 1:57 PM EST Not much otc counter. Brat diet and fluids, if continues or worsens, needs seen * Telephone Encounter - Bryce Landin RN - 09/01/2024 1:49 PM EST Pt called in and reports he got the stomach bug on Sunday night 08/29. He states he threw up once on Sunday and diarrhea 5-6 x a day started Sunday night. Pt states he doesn't feel like he has any symptoms aside from the cramping. He was asking if there was anything OTC he could take for the cramping. He said he thinks they used to take Pepto Bismol.Pt sates he has been drinking 2 small 7.9 oz Gatorades and 1 16 oz bottle of water a day to keep from getting dehydrated. He said he ate 4 pieces of toast yesterday and 2 today, but that is all he could eat. Please call and advise. documented in this encounterWvumedicine [facility]01-06-2025 Telephone encounter Note * Telephone Encounter - Rigoberto Gould MD - 09/01/2024 1:57 PM EST Not much otc counter. Brat diet and fluids, if continues or worsens, needs seen [facility]01-[facility] Telephone encounter Note* Telephone Encounter - Bryce Landin RN - 09/01/2024 1:49 PM EST Pt called in and reports he got the stomach bug on Sunday night 08/29. He states he threw up once on Sunday and diarrhea 5-6 x a day started Sunday night. Pt states he doesn't feel like he has any symptoms aside from the cramping. He was asking if there was anything OTC he could take for the cramping. He said he thinks they used to take Pepto Bismol.Pt sates he has been drinking 2 small 7.9 oz Gatorades and 1 16 oz bottle of water a day to keep from getting dehydrated. He said he ate 4 pieces of toast yesterday and 2 today, but that is all he could eat. Please call and advise. [facility]12-30-[facility] Telephone encounter Note* Telephone Encounter - Luciana Ferguson - 08/25/2024 2:00 PM EST Lvm for patient to call back and schedule with Cara on sunday [facility]12-30-2024 Miscellaneous Notes* Telephone Encounter - Luciana Ferguson - 08/25/2024 2:00 PM EST Lvm for patient to call back and schedule with Cara on sunday * Telephone Encounter - Isabela Rosado RN - 08/25/2024 1:43 PM EST Patient calling with pain between right hip and knee Please call pt and offer Friday 09/01 with Cara documented in this encounterWvumedicine [facility]12-30-2024 Telephone encounter Note * Telephone Encounter - Isabela Rosado RN - 08/25/2024 1:43 PM EST Patient calling with pain between right hip and knee Please call pt and offer Friday 09/01 with Cara [facility]12-17-2024 Telephone encounter Note* Telephone Encounter - Aleshia Vázquez - 08/12/2024 3:06 PM EST Spoke with patient and he states he will talk to his and call back Aleshia Vázquez [facility]12-17-2024 Miscellaneous Notes* Telephone Encounter - Aleshia Vázquez - 08/12/2024 3:06 PM EST Spoke with patient and he states he will talk to his and call back Aleshia Demarcoard * Telephone Encounter - Isabela Rosado RN - 08/12/2024 11:29 AM EST Pt needs an appt before refills are ok'd * Telephone Encounter - Luciana Ferguson - 08/12/2024 11:23 AM EST Prescription Refill Information The patient has been identified by name and date of : Yes Caregiver verified no other encounters exist for this prescription request: Yes Caregiver confirmed with patient/requestor that no other refills are due, in the near future, with this provider at this time: Yes The last office visit in the department: n/a Does the patient have a future office visit with this provider/department: No Requested Prescriptions Pending Prescriptions Disp Refills traMADol (ULTRAM) 50 mg tablet Sig: Take 1 tablet by mouth every 6 hours as needed for pain. Luciana Ferguson August 12, 2024 11:23 AM documented in this encounterWvumedicine [facility]12-17-2024 Telephone encounter Note * Telephone Encounter - Isabela Rosado RN - 08/12/2024 11:29 AM EST Pt needs an appt before refills are ok'd [facility]12-17-[facility] Telephone encounter Note* Telephone Encounter - Luciana Ferguson - 08/12/2024 11:23 AM EST Prescription Refill Information The patient has been identified by name and date of : Yes Caregiver verified no other encounters exist for this prescription request: Yes Caregiver confirmed with patient/requestor that no other refills are due, in the near future, with this provider at this time: Yes The last office visit in the department: n/a Does the patient have a future office visit with this provider/department: No Requested Prescriptions Pending Prescriptions Disp Refills traMADol (ULTRAM) 50 mg tablet Sig: Take 1 tablet by mouth every 6 hours as needed for pain. Luciana Ferguson August 12, 2024 11:23 AM [facility]11-19-[facility] Telephone encounter Note* Telephone Encounter - Garrison Olmedo MA - 07/15/2024 3:02 PM EST Patient was made aware of the results. Patient verbalizes understanding. Garrison Olmedo Ma [facility]11-19-2024 Miscellaneous Notes* Telephone Encounter - Garrison Olmedo MA - 07/15/2024 3:02 PM EST Patient was made aware of the results. Patient verbalizes understanding. Garrison Olmedo Ma * Telephone Encounter - Alexus Mendez APRN.CNP - 07/15/2024 12:45 PM EST Lab work from dialysis July 08, 2024: WBC 6.59, hemoglobin 10.7, hematocrit 31.2, platelet count 171 Sodium 135, potassium 5.3, BUN 86, creatinine 5.61, glucose not listed Parathyroid hormone intact 316, corrected calcium 10.1, ferritin 1601 HDL 40, LDL 52 Please let patient know that cholesterol levels look good. All other studies are managed by dialysis. documented in this encounterWvumedicine [facility]11-19-2024 Telephone encounter Note * Telephone Encounter - Alexus Mendez APRN.CNP - 07/15/2024 12:45 PM EST Lab work from dialysis July 08, 2024: WBC 6.59, hemoglobin 10.7, hematocrit 31.2, platelet count 171 Sodium 135, potassium 5.3, BUN 86, creatinine 5.61, glucose not listed Parathyroid hormone intact 316, corrected calcium 10.1, ferritin 1601 HDL 40, LDL 52 Please let patient know that cholesterol levels look good. All other studies are managed by dialysis. [facility]11-08-[facility] Telephone encounter Note* Telephone Encounter - Cristina Zamudio APRN.CNP - 07/04/2024 5:55 PM EST Duplicate and already sent in today. Cristina Zamudio APRN.CNP [facility] Work Phone: 1(317) 207-287011-08-2024 Miscellaneous Notes* Telephone Encounter - Cristina Zamudio APRN.CNP - 07/04/2024 5:55 PM EST Duplicate and already sent in today. Cristina Zamudio APRN.CNP * Telephone Encounter - Florencia Swain RN - 07/04/2024 12:16 PM EST Prescription Refill Information The patient has been identified by name and date of : Yes Caregiver verified no other encounters exist for this prescription request: Yes Caregiver confirmed with patient/requestor that no other refills are due, in the near future, with this provider at this time: Yes The last office visit in the department: 06/07/23 Does the patient have a future office visit with this provider/department: Yes (12/29/24) Requested Prescriptions Pending Prescriptions Disp Refills Tadalafil (CIALIS) 20 mg tablet 30 tablet 5 Sig: Take 1 tablet by mouth as needed. Florencia Swain RN July 04, 2024 12:16 PM [facility] Telephone encounter Note * Telephone Encounter - Florencia Swain RN - 07/04/2024 12:16 PM EST Prescription Refill Information The patient has been identified by name and date of : Yes Caregiver verified no other encounters exist for this prescription request: Yes Caregiver confirmed with patient/requestor that no other refills are due, in the near future, with this provider at this time: Yes The last office visit in the department: 06/07/23 Does the patient have a future office visit with this provider/department: Yes (12/29/24) Requested Prescriptions Pending Prescriptions Disp Refills Tadalafil (CIALIS) 20 mg tablet 30 tablet 5 Sig: Take 1 tablet by mouth as needed. Florencia Swain RN July 04, 2024 12:16 PM [facility]11-06-2024 Telephone encounter Note* Telephone Encounter - Farrah Hastings RN - 07/02/2024 8:59 AM EST Patient calls to see the status of below. Patient notified that medication was sent to mail away pharmacy. Patient asking if provider sent in prescription for Cialis to [facility]? Please review and advise, Farrah Hastings RN [facility]11-06-2024 Miscellaneous Notes* Telephone Encounter - Farrah Hastings RN - 07/02/2024 8:59 AM EST Patient calls to see the status of below. Patient notified that medication was sent to mail away pharmacy. Patient asking if provider sent in prescription for Cialis to [facility]? Please review and advise, Farrah Hastings RN * Telephone Encounter - Alexus Mendez APRN.CNP - 06/30/2024 5:43 PM EST Lantus Solostar pens Ordered JERAMY * Telephone Encounter - Garrison Olmedo MA - 06/30/2024 5:16 PM EST Fax received from [facility] that Lantus Solostar is not covered and needs to get vials. Spoke with patient and he will not use vials, asking for the prescription to be run through his mail order to see if it will be covered as he has two insurance coverages. Garrison Olmedo MA June 30, 2024 5:23 PM documented in this encounterW[facility]24 Telephone encounter Note * Telephone Encounter - Alexus Mendez APRN.CNP - 06/30/2024 5:43 PM EST Lantus Solostar pens Ordered JERAMY [facility]11-04-2024 Telephone encounter Note* Telephone Encounter - Garrison Olmedo MA - 06/30/2024 5:16 PM EST Fax received from [facility] that Lantus Solostar is not covered and needs to get vials. Spoke with patient and he will not use vials, asking for the prescription to be run through his mail order to see if it will be covered as he has two insurance coverages. Garrison Olmedo MA June 30, 2024 5:23 PM [facility]11-04-2024 Instructions* Patient Instructions* Alexus Mendez APRN.CNP - 06/30/2024 1:21 PM EST 1) [facility]) Follow up in 6 months documented in this encounterW[facility]11-04-2024 NoteHNO ID: [id number] Author: ALEXUS MENDEZ APRN.CNP Service: ? Author Type: Clinical Nurse Specialist Type: Progress Notes Filed: 06/30/2024 13:21 Note Text: This is a 68 year old male who presents today with: Patient presents with: Follow Up: 3 month exam HISTORY OF PRESENT ILLNESS: Mauri Quinones is a 68 year old male. Patient presents with: Follow Up: 3 month exam Needs a HgA1c. Broken knee is coming along. Healed. PAST MEDICAL HISTORY: PAST MEDICAL HISTORY Diagnosis Date Acute on chronic diastolic congestive heart failure ([facility]) 07/14/2018 GARRET (acute kidney injury) ([facility]) 03/24/2019 GARRET (acute kidney injury) ([facility]) 03/24/2019 Ankylosing spondylitis ([facility]) CAD (coronary artery disease) Cellulitis Chronic combined systolic and diastolic CHF (congestive heart failure) ([facility]) 03/24/2019 CKD (chronic kidney disease) stage 3, GFR 30-59 ml/min ([facility]) 03/24/2019 Constipation Diabetes ([facility]) Gout High phosphate levels 03/24/2019 History of coronary artery bypass graft 04/18/2019 04/10/17 CARTY to LAD, SVG to PDA, SVG to OM Hx of fracture multiple bones Hyperkalemia 03/24/2019 Hypoalbuminemia 03/24/2019 Hyponatremia 03/24/2019 Hypoxia 03/24/2019 Ischemic cardiomyopathy 04/18/2019 Echocardiogram 01/10/19 Dr. Nunez: Dilated left ventricle, left ventricular ejection fraction 40%, mild to moderate systolic dysfunction, moderate concentric LVH, dilated left and right atria. Mild mitral valve thickening with papillary muscle dysfunction, mild mitral valve insufficiency, tricuspid valve insufficiency, aortic valve insufficiency, pulmonic valve insufficiency. Aortic valve calcifi NSTEMI (non-ST elevated myocardial infarction) ([facility]) 03/12/2017 [facility] admit Osteoarthritis Transition of care performed with sharing of clinical summary 04/08/2019 Admit [facility] 03/21/19-03/22/19 Discharge diagnoses chronic kidney disease with worsening creatinine, acute kidney injury Hypokalemia Toxic encephalopathy secondary to Flexeril overusage Type 2 diabetes Ischemic cardiomyopathy Coronary artery disease Ligamental cervical neck strain and acute Pulmonary hypertension Hypertension Pyuria Preadmit: to [facility] ED with slurred speech, lethargy. PAST SURGICAL HISTORY Procedure Laterality Date ARTHRP ACETBLR/PROX FEM PROSTC AGRFT/ALGRFT Right 2019 Dr Peguero CORONARY ARTERY BYPASS GRAFT 04/12/2017 x 3 FEMUR RIGHT OP SURGERY Right Repair of fracture with hardward HIP SURGERY HX Right pin KNEE ARTHROSCOPY Left x2 KNEE SURGERY HX Right TKR, right, arthoscopy x3 PAST SURGICAL HISTORY OF 09/07/2017 08/15/17 fx radius in 2 places; plate and screws.Plate and screws 09/07/17 [facility] TOE SURGERY HX Right ALLERGIES Lyrica [Pregabalin] MEDICATIONS Current Outpatient Medications Medication Sig loratadine (CLARITIN) 10 mg tablet Take 1 tablet by mouth once daily. traMADol (ULTRAM) 50 mg tablet Take 50 mg by mouth every 6 hours as needed for pain. aspirin, enteric coated (ASPIRIN, ENTERIC COATED) 81 mg EC tablet Take 81 mg by mouth once daily. Pt to call and clarify if needs to stop pantoprazole (PROTONIX) 40 mg tablet Take 1 tablet by mouth twice daily before meals (0600/1600). (Patient taking differently: Take 40 mg by mouth every morning.) sevelamer carbonate (RENVELA) 800 mg tablet Take 800 mg by mouth three times daily with meals. B Complex-Vitamin C-Folic Acid (NEPHRO-SAVANAH) 0.8 mg tab Take 1 tablet by mouth every morning. bumetanide (BUMEX) 2 mg tablet Take 2 mg by mouth every morning. melatonin 5 mg tablet Take 10 mg by mouth at bedtime as needed for for insomnia. acetaminophen (TYLENOL EX STR RAPID RELEASE ORAL) Take 1-2 capsules by mouth every 6 hours as needed (pain). atorvastatin (LIPITOR) 40 mg tablet Take 40 mg by mouth daily at bedtime. doxazosin (CARDURA) 4 mg tablet Take 0.5 tablets by mouth twice daily. carvedilol (COREG) 25 mg tablet Take 12.5 mg by mouth twice daily with meals. latanoprost (XALATAN) 0.005 % ophthalmic solution Use 1 Drop in both eyes daily at bedtime. into affected eye(s). insulin detemir U-100 (LEVEMIR FLEXTOUCH U-100 INSULN) 100 unit/mL (3 mL) injection pen Inject 15 Units subcutaneously daily at bedtime. (Patient taking differently: Inject 8 Units subcutaneously daily at bedtime. Levels have been good so he currently is not taking unless BS elevates) No current facility-administered medications for this visit. FAMILY HISTORY Problem Relation Age of Onset Arthritis Mother Coronary Artery Disease Mother Diabetes Mother Heart Mother Hypertension Mother Alcohol/Drug Father Arthritis Father Heart Father Hypertension Father Social History Tobacco Use Smoking status: Never Smokeless tobacco: Former Types: Chew Quit date: 04/17/2017 Substance Use Topics Alcohol use: No Comment: seldom Drug use: No DM: Reports overall feeling well. Medication side effects: No. Home sugar checks: (more content not included)...[facility] 06-30-2024 History of Present illness Narrative* Alexus Mendez APRN.[facility] - 06/30/2024 12:56 PM EST This is a 68 year old male who presents today with: Patient presents with: Follow Up: 3 month exam HISTORY OF PRESENT ILLNESS: Mauri Quinones is a 68 year old male. Patient presents with: Follow Up: 3 month exam Needs a HgA1c. Broken knee is coming along. Healed. PAST MEDICAL HISTORY: PAST MEDICAL HISTORY Diagnosis Date Acute on chronic diastolic congestive heart failure ([facility]) 07/14/2018 GARRET (acute kidney injury) ([facility]) 03/24/2019 GARRET (acute kidney injury) ([facility]) 03/24/2019 Ankylosing spondylitis ([facility]) CAD (coronary artery disease) Cellulitis Chronic combined systolic and diastolic CHF (congestive heart failure) ([facility]) 03/24/2019 CKD (chronic kidney disease) stage 3, GFR 30-59 ml/min ([facility]) 03/24/2019 Constipation Diabetes ([facility]) Gout High phosphate levels 03/24/2019 History of coronary artery bypass graft 04/18/2019 04/10/17 CARTY to LAD, SVG to PDA, SVG to OM Hx of fracture multiple bones Hyperkalemia 03/24/2019 Hypoalbuminemia 03/24/2019 Hyponatremia 03/24/2019 Hypoxia 03/24/2019 Ischemic cardiomyopathy 04/18/2019 Echocardiogram 01/10/19 Dr. Nunez: Dilated left ventricle, left ventricular ejection fraction 40%, mild to moderate systolic dysfunction, moderate concentric LVH, dilated left and right atria. Mild mitral valve thickening with papillary muscle dysfunction, mild mitral valve insufficiency, tricuspid valve insufficiency, aortic valve insufficiency, pulmonic valve insufficiency. Aortic valve calcifi NSTEMI (non-ST elevated myocardial infarction) ([facility]) 03/12/2017 [facility] admit Osteoarthritis Transition of care performed with sharing of clinical summary 04/08/2019 Admit [facility] 03/21/19-03/22/19 Discharge diagnoses chronic kidney disease with worsening creatinine, acute kidney injury Hypokalemia Toxic encephalopathy secondary to Flexeril overusage Type 2 diabetes Ischemic cardiomyopathy Coronary artery disease Ligamental cervical neck strain and acute Pulmonary hypertension Hypertension Pyuria Preadmit: to [facility] ED with slurred speech, lethargy. PAST SURGICAL HISTORY Procedure Laterality Date ARTHRP ACETBLR/PROX FEM PROSTC AGRFT/ALGRFT Right 2019 Dr Peguero CORONARY ARTERY BYPASS GRAFT 04/12/2017 x 3 FEMUR RIGHT OP SURGERY Right Repair of fracture with hardward HIP SURGERY HX Right pin KNEE ARTHROSCOPY Left x2 KNEE SURGERY HX Right TKR, right, arthoscopy x3 PAST SURGICAL HISTORY OF 09/07/2017 08/15/17 fx radius in 2 places; plate and screws.Plate and screws 09/07/17 [facility] TOE SURGERY HX Right ALLERGIES Lyrica [Pregabalin] MEDICATIONS Current Outpatient Medications Medication Sig loratadine (CLARITIN) 10 mg tablet Take 1 tablet by mouth once daily. traMADol (ULTRAM) 50 mg tablet Take 50 mg by mouth every 6 hours as needed for pain. aspirin, enteric coated (ASPIRIN, ENTERIC COATED) 81 mg EC tablet Take 81 mg by mouth once daily. Pt to call and clarify if needs to stop pantoprazole (PROTONIX) 40 mg tablet Take 1 tablet by mouth twice daily before meals (0600/1600). (Patient taking differently: Take 40 mg by mouth every morning.) sevelamer carbonate (RENVELA) 800 mg tablet Take 800 mg by mouth three times daily with meals. B Complex-Vitamin C-Folic Acid (NEPHRO-SAVANAH) 0.8 mg tab Take 1 tablet by mouth every morning. bumetanide (BUMEX) 2 mg tablet Take 2 mg by mouth every morning. melatonin 5 mg tablet Take 10 mg by mouth at bedtime as needed for for insomnia. acetaminophen (TYLENOL EX STR RAPID RELEASE ORAL) Take 1-2 capsules by mouth every 6 hours as needed (pain). atorvastatin (LIPITOR) 40 mg tablet Take 40 mg by mouth daily at bedtime. doxazosin (CARDURA) 4 mg tablet Take 0.5 tablets by mouth twice daily. carvedilol (COREG) 25 mg tablet Take 12.5 mg by mouth twice daily with meals. latanoprost (XALATAN) 0.005 % ophthalmic solution Use 1 Drop in both eyes daily at bedtime. into affected eye(s). insulin detemir U-100 (LEVEMIR FLEXTOUCH U-100 INSULN) 100 unit/mL (3 mL) injection pen Inject 15 Units subcutaneously daily at bedtime. (Patient taking differently: Inject 8 Units subcutaneously daily at bedtime. Levels have been good so he currently is not taking unless BS elevates) No current facility-administered medications for this visit. FAMILY HISTORY Problem Relation Age of Onset Arthritis Mother Coronary Artery Disease Mother Diabetes Mother Heart Mother Hypertension Mother Alcohol/Drug Father Arthritis Father Heart Father Hypertension Father Social History Tobacco Use Smoking status: Never Smokeless tobacco: Former Types: Chew Quit date: 04/17/2017 Substance Use Topics Alcohol use: No Comment: seldom Drug use: No DM: Reports overall feeling well. Medication side effects: No. Home sugar checks: no Hypoglycemic spells: No. Watching diet: No. Unexpected weight loss: No. Polyuria, polydipsia: No. Vision Changes: No. Just had eyes checked Foot lesions or numbness or pain: No. REVIEW OF SYSTEMS GENERAL: No weight loss, + malaise, no fevers/chills HEENT: Negative for frequent or significant headaches, No changes in hearing or vision. NECK: Negative for lumps, goiter, pain and significant neck swelling RESPIRATORY: Negative for cough, hemoptysis, wheezing, dyspnea or shortness of breath CARDIOVASCULAR: Negative for chest pain, leg swelling, orthopnea, or palpitations GI: No nausea, vomiting, or diarrhea/constipation. No hematochezia/melena. No heartburn or reflux symptoms. : No history of dysuria, frequency or incontinence MUSCULOSKELETAL: Negative for joint pain or swelling. Other than knee that is healed from fracture.Left ankle swells and hurts SKIN: Negative for lesions, rash, and itching NEURO: No history of headaches, syncope, paralysis, seizures or tremors MOOD: Negative for depression, anxiety, or suicidal ideation. EXAM: BP 162/68 Pulse 60 Resp 16 Wt 77.6 kg (171 lb) SpO2 95% BMI 24.54 kg/m PHYSICAL EXAM: Physical Exam Vitals reviewed. Constitutional: Appearance: Normal appearance. HENT: Head: Normocephalic. Cardiovascular: Rate and Rhythm: Normal rate and regular rhythm. Pulses: Normal pulses. Heart sounds: Normal heart sounds. Pulmonary: Effort: Pulmonary effort is normal. Breath sounds: Normal breath sounds. Comments: Lungs CTA but diminished throughout Abdominal: General: There is no distension. Palpations: Abdomen is soft. Tenderness: There is no abdominal tenderness. Comments: Hypoactive AUDELIA Musculoskeletal: General: Normal range of motion. Comments: Fistula in left arm Skin: General: Skin is warm and dry. Neurological: Mental Status: He is alert and oriented to person, place, and time. Psychiatric: Mood and Affect: Mood normal. Behavior: Behavior normal. LABS: check labs at dialysis- [facility] ASSESSMENT/PLAN: 1. Ischemic cardiomyopathy - ICD9: 414.8, ICD10: I25.5 (primary diagnosis) Sees cardiology 2. Screening for diabetic retinopathy - ICD9: V80.2, ICD10: Z13.5 Ongoing - HEMOGLOBIN A1C - LIPID PANEL, NONFASTING 3. Screening for depression - ICD9: V79.0, ICD10: Z13.31 Stable - DEPRESSION SCREENING 4. Encounter for screening examination for other mental health and behavioral disorders - ICD9: V79.8, ICD10: Z13.39 No anxiety - ANXIETY SCREENING 5. Arteriosclerotic heart disease (ASHD) - ICD9: 414.00, ICD10: I25.10 Sees cardiologyFlorencia - LIPID PANEL, NONFASTING 6. Chronic kidney disease (CKD), stage V (HCC) - ICD9: 585.5, ICD10: N18.5 - eGFR: Worsening - On hemodialysis - HEMOGLOBIN - HEMATOCRIT - CREATININE BLD 7. Encounter for immunization - ICD9: V03.89, ICD10: Z23 Declined 8. Gastrointestinal hemorrhage, unspecified gastrointestinal hemorrhage type - ICD9: 578.9, ICD10: K92.2 Stable on pantoprazole - PANTOPRAZOLE 40 MG TABLET,DELAYED RELEASE 9. Type 2 diabetes mellitus without complication, with long-term current use of insulin ([facility]) - ICD9: 250.00, V58.67, ICD10: E11.9, Z79.4 - Control undetermined, due for labs - Continue current medications - LANTUS SOLOSTAR U-100 INSULIN 100 UNIT/ML (3 ML) SUBCUTANEOUS PEN switched from Levemir (don't manufacture- not taking insulin - PEN NEEDLE, DIABETIC 32 GAUGE X 10. PVD (peripheral vascular disease) ([facility]) - ICD9: 443.9, ICD10: I73.9 Stable 11. Hypertension, essential - ICD9: 401.9, ICD10: I10 - Controlled - Recommend home blood pressure monitoring, to bring results to next visit - Encouraged sodium restriction, DASH or Mediterranean diet - Recommend regular aerobic exercise 12. ESRD (end stage renal disease) on dialysis ([facility]) - ICD9: 585.6, V45.11, ICD10: N18.6, Z99.2 - eGFR: Due for labs - Continue dialysis Discussed treatment plan and patient voices understanding. Patient's questions answered appropriately. Medications and potential side effects were discussed and patient voices understanding. Return to the office as scheduled or as needed for worsening/no improvement. Alexus Mendez APRN.JOCELYN documented in this encounterW[facility] NoteHNO ID: [id number] Author: NUPUR DE LA ROSA MD Service: ? Author Type: Physician Type: Progress Notes Filed: 07/22/2024 21:24 Note Text: REASON FOR VISIT / CHIEF COMPLAINT CHIEF COMPLAINT: Mauri Quinones is a 68 year old male who presents today for follow up office visit. Patient presents with: Right Ankle - Follow Up, Fracture HISTORY OF PRESENT ILLNESS (HPI) PAIN EVALUATION 06/25/2024 1125 Pain Level: 0 Pain Location: Ankle-Right He reports that his ankle is doing well. He still has occasional pain in the knee but for the most part is returning to regular activities Any new injury, since being seen last: No Is there any overall improvement in your condition? Yes, Does anything make it worse?: Yes, prolonged standing, walking Does anything make it better?: Yes, activity modification REVIEW OF SYMPTOMS: Integumentary: Any recent skin changes or rashes? No Neurologic: Any numbness or tingling in the LOCAL AREA? No Endocrine: Any diagnosis of diabetes? No Hematologic: Any recent bleeding episodes? No ALLERGIES ALLERGIES Allergen Reactions Lyrica [Pregabalin] Swelling PAST MEDICAL HISTORY PAST MEDICAL HISTORY Diagnosis Date Acute on chronic diastolic congestive heart failure ([facility]) 07/14/2018 GARRET (acute kidney injury) ([facility]) 03/24/2019 GARRET (acute kidney injury) ([facility]) 03/24/2019 Ankylosing spondylitis ([facility]) CAD (coronary artery disease) Cellulitis Chronic combined systolic and diastolic CHF (congestive heart failure) ([facility]) 03/24/2019 CKD (chronic kidney disease) stage 3, GFR 30-59 ml/min ([facility]) 03/24/2019 Constipation Diabetes ([facility]) Gout High phosphate levels 03/24/2019 History of coronary artery bypass graft 04/18/2019 04/10/17 CARTY to LAD, SVG to PDA, SVG to OM Hx of fracture multiple bones Hyperkalemia 03/24/2019 Hypoalbuminemia 03/24/2019 Hyponatremia 03/24/2019 Hypoxia 03/24/2019 Ischemic cardiomyopathy 04/18/2019 Echocardiogram 01/10/19 Dr. Nunez: Dilated left ventricle, left ventricular ejection fraction 40%, mild to moderate systolic dysfunction, moderate concentric LVH, dilated left and right atria. Mild mitral valve thickening with papillary muscle dysfunction, mild mitral valve insufficiency, tricuspid valve insufficiency, aortic valve insufficiency, pulmonic valve insufficiency. Aortic valve calcifi NSTEMI (non-ST elevated myocardial infarction) ([facility]) 03/12/2017 [facility] admit Osteoarthritis Transition of care performed with sharing of clinical summary 04/08/2019 Admit [facility] 03/21/19-03/22/19 Discharge diagnoses chronic kidney disease with worsening creatinine, acute kidney injury Hypokalemia Toxic encephalopathy secondary to Flexeril overusage Type 2 diabetes Ischemic cardiomyopathy Coronary artery disease Ligamental cervical neck strain and acute Pulmonary hypertension Hypertension Pyuria Preadmit: to [facility] ED with slurred speech, lethargy. PAST SURGICAL HISTORY Procedure Laterality Date ARTHRP ACETBLR/PROX FEM PROSTC AGRFT/ALGRFT Right 2019 Dr Peguero CORONARY ARTERY BYPASS GRAFT 04/12/2017 x 3 FEMUR RIGHT OP SURGERY Right Repair of fracture with hardward HIP SURGERY HX Right pin KNEE ARTHROSCOPY Left x2 KNEE SURGERY HX Right TKR, right, arthoscopy x3 PAST SURGICAL HISTORY OF 09/07/2017 08/15/17 fx radius in 2 places; plate and screws.Plate and screws 09/07/17 [facility] TOE SURGERY HX Right PHYSICAL EXAMINATION Vitals: There were no vitals taken for this visit. Body Habitus:no acute distress and alert and oriented Orientation: Normal: Oriented to person, place and time Psych: normal Sensation: sensation to light touch is grossly normal bilaterally Skin: Color, texture, turgor normal. No rashes or lesions Swelling: no swelling noted Stance: normal cervical posture, shoulder alignment, and no joint deformities or swelling noted Ortho Exam Right knee no palpable effusions Range of motion 0-110 No tenderness over the proximal tibia Right leg neurovascularly intact Right ankle full range of motion No tenderness to palpation Imaging : XR ANKLE GENERAL 3V AP/LAT/OBL RIGHT Narrative: * * *Final Report* * * DATE OF EXAM: Jun 25 2024 11:26AM LIUDMILA [id number] - XR ANKLE 3V AP/LAT/OBL RT / PROCEDURE REASON: [id number] * * * * Physician Interpretation * * * * EXAM(s): XR ANKLE 3V AP/LAT/OBL RT..... HISTORY: 68 years old Clinical information: Pain right ankle pain TECHNIQUE: Images: XR ANKLE 3V AP/LAT/OBL RT Comparison: 05/07/2024. RESULT: Findings: Diffuse bony demineralization. Flattened sclerotic appearance of the navicular again noted very similar to the previous study. Extensive vascular calcification throughout the soft tissues. Large anterior heel spur No fractures or dislocations are seen. Impression: IMPRESSION: Navicular stress fracture again noted similar in appearance to the previous study Crts: CARMELA Transcribe Date (more content not included)...[facility] 06-25-2024 History of Present illness Narrative* Nupur De La Rosa MD - 06/25/2024 11:31 AM EDT REASON FOR VISIT / CHIEF COMPLAINT CHIEF COMPLAINT: Mauri Quinones is a 68 year old male who presents today for follow up office visit. Patient presents with: Right Ankle - Follow Up, Fracture HISTORY OF PRESENT ILLNESS (HPI) PAIN EVALUATION 06/25/2024 1125 Pain Level: 0 Pain Location: Ankle-Right He reports that his ankle is doing well. He still has occasional pain in the knee but for the most part is returning to regular activities Any new injury, since being seen last: No Is there any overall improvement in your condition? Yes, Does anything make it worse?: Yes, prolonged standing, walking Does anything make it better?: Yes, activity modification REVIEW OF SYMPTOMS: Integumentary: Any recent skin changes or rashes? No Neurologic: Any numbness or tingling in the LOCAL AREA? No Endocrine: Any diagnosis of diabetes? No Hematologic: Any recent bleeding episodes? No ALLERGIES ALLERGIES Allergen Reactions Lyrica [Pregabalin] Swelling PAST MEDICAL HISTORY PAST MEDICAL HISTORY Diagnosis Date Acute on chronic diastolic congestive heart failure ([facility]) 07/14/2018 GARRET (acute kidney injury) ([facility]) 03/24/2019 GARRET (acute kidney injury) ([facility]) 03/24/2019 Ankylosing spondylitis ([facility]) CAD (coronary artery disease) Cellulitis Chronic combined systolic and diastolic CHF (congestive heart failure) ([facility]) 03/24/2019 CKD (chronic kidney disease) stage 3, GFR 30-59 ml/min ([facility]) 03/24/2019 Constipation Diabetes ([facility]) Gout High phosphate levels 03/24/2019 History of coronary artery bypass graft 04/18/2019 04/10/17 CARTY to LAD, SVG to PDA, SVG to OM Hx of fracture multiple bones Hyperkalemia 03/24/2019 Hypoalbuminemia 03/24/2019 Hyponatremia 03/24/2019 Hypoxia 03/24/2019 Ischemic cardiomyopathy 04/18/2019 Echocardiogram 01/10/19 Dr. Nunez: Dilated left ventricle, left ventricular ejection fraction 40%, mild to moderate systolic dysfunction, moderate concentric LVH, dilated left and right atria. Mild mitral valve thickening with papillary muscle dysfunction, mild mitral valve insufficiency, tricuspid valve insufficiency, aortic valve insufficiency, pulmonic valve insufficiency. Aortic valve calcifi NSTEMI (non-ST elevated myocardial infarction) ([facility]) 03/12/2017 [facility] admit Osteoarthritis Transition of care performed with sharing of clinical summary 04/08/2019 Admit [facility] 03/21/19-03/22/19 Discharge diagnoses chronic kidney disease with worsening creatinine, acute kidney injury Hypokalemia Toxic encephalopathy secondary to Flexeril overusage Type 2 diabetes Ischemic cardiomyopathy Coronary artery disease Ligamental cervical neck strain and acute Pulmonary hypertension Hypertension Pyuria Preadmit: to [facility] ED with slurred speech, lethargy. PAST SURGICAL HISTORY Procedure Laterality Date ARTHRP ACETBLR/PROX FEM PROSTC AGRFT/ALGRFT Right 2019 Dr Peguero CORONARY ARTERY BYPASS GRAFT 04/12/2017 x 3 FEMUR RIGHT OP SURGERY Right Repair of fracture with hardward HIP SURGERY HX Right pin KNEE ARTHROSCOPY Left x2 KNEE SURGERY HX Right TKR, right, arthoscopy x3 PAST SURGICAL HISTORY OF 09/07/2017 08/15/17 fx radius in 2 places; plate and screws.Plate and screws 09/07/17 [facility] TOE SURGERY HX Right PHYSICAL EXAMINATION Vitals: There were no vitals taken for this visit. Body Habitus:no acute distress and alert and oriented Orientation: Normal: Oriented to person, place and time Psych: normal Sensation: sensation to light touch is grossly normal bilaterally Skin: Color, texture, turgor normal. No rashes or lesions Swelling: no swelling noted Stance: normal cervical posture, shoulder alignment, and no joint deformities or swelling noted Ortho Exam Right knee no palpable effusions Range of motion 0-110 No tenderness over the proximal tibia Right leg neurovascularly intact Right ankle full range of motion No tenderness to palpation Imaging : XR ANKLE GENERAL 3V AP/LAT/OBL RIGHT Narrative: * * *Final Report* * * DATE OF EXAM: Jun 25 2024 11:26AM LIUDMILA 5297 - XR ANKLE 3V AP/LAT/OBL RT / PROCEDURE REASON: [id number] * * * * Physician Interpretation * * * * EXAM(s): XR ANKLE 3V AP/LAT/OBL RT..... HISTORY: 68 years old Clinical information: Pain right ankle pain TECHNIQUE: Images: XR ANKLE 3V AP/LAT/OBL RT Comparison: 05/07/2024. RESULT: Findings: Diffuse bony demineralization. Flattened sclerotic appearance of the navicular again noted very similar to the previous study. Extensive vascular calcification throughout the soft tissues. Large anterior heel spur No fractures or dislocations are seen. Impression: IMPRESSION: Navicular stress fracture again noted similar in appearance to the previous study Crts: CARMELA Transcribe Date/Time: Jun 26 2024 10:30A Dictated by : OSMAN JORDAN DO This examination was interpreted and the report reviewed and electronically signed by: OSMAN JORDAN DO on Jun 26 2024 10:31AM EST Proceedures : None today Assessment: Healed from tibial plateau fracture 2. Stress fracture navicular that is symptomatically improved Plan: 1. Continue weightbearing as tolerated and independent range of motion strengthening exercises 2. Follow-up as needed Nupur De La Rosa M.D. Department of Orthopaedic [facility] documented in this encounterW[facility] History of Present illness Narrative* Stormy Nolan Tech - 06/25/2024 11:00 AM EDT Radiology Service Progress Note PATIENT NAME: Mauri Quinones DATE OF SERVICE: June 25, 2024 TIME: 11:20 AM PATIENT IDENTITY VERIFICATION COMPLETED USING TWO (2) IDENTIFIERS: Name and Date of confirmedby patient verbally. FALL SCREENING: Has the patient had 2 falls in the last year or 1 fall with injury or currently using an Ambulatory Assistive Device (Walker, Cane, Wheelchair, Crutches, etc.)? No PATIENT GENDER DATA: Male PATIENT RELEVANT IMPLANT DATA REVIEWED: Not Applicable PATIENT PRESENTS WITH AN IMPLANTABLE OR ATTACHED EDGE BLACKER: No RADIOLOGY DEPARTMENT: General X-ray: Exam(s) Completed: Lower Extremity X- Ray(s): Ankle, Right and Wt. Bearing PERIPHERAL IV DATA: Not applicable SIGNED BY: Robert Maxwell June 25, 2024 11:20 AM documented in this encounterWvumed[facility]10-30-2024 NoteHNO ID: [id number] Author: STORMY NOLAN Tech Service: ? Author Type: Graduate Nurse Type: Progress Notes Filed: 06/25/2024 11:20 Note Text: Radiology Service Progress Note PATIENT NAME: Mauri Quinones DATE OF SERVICE: June 25, 2024 TIME: 11:20 AM PATIENT IDENTITY VERIFICATION COMPLETED USING TWO (2) IDENTIFIERS: Name and Date of confirmed by patient verbally. FALL SCREENING: Has the patient had 2 falls in the last year or 1 fall with injury or currently using an Ambulatory Assistive Device (Walker, Cane, Wheelchair, Crutches, etc.)? No PATIENT GENDER DATA: Male PATIENT RELEVANT IMPLANT DATA REVIEWED: Not Applicable PATIENT PRESENTS WITH AN IMPLANTABLE OR ATTACHED EDGE BLACKER: No RADIOLOGY DEPARTMENT: General X-ray: Exam(s) Completed: Lower Extremity X-Ray(s): Ankle, Right and Wt. Bearing PERIPHERAL IV DATA: Not applicable SIGNED BY: Robert Maxwell June 25, 2024 11:20 [id number] NoteHNO ID: [id number] Author: NUPUR DE LA ROSA MD Service: ? Author Type: Physician Type: Progress Notes Filed: 05/19/2024 20:07 Note Text: REASON FOR VISIT / CHIEF COMPLAINT CHIEF COMPLAINT: Mauri Quinones is a 68 year old male who presents today for follow up office visit. Patient presents with: Right Knee - Follow Up, Fracture Right Ankle - Follow Up HISTORY OF PRESENT ILLNESS (HPI) PAIN EVALUATION 05/19/2024 1405 Pain Level: 0 Pain Location: Knee-Right Here for follow-up of his right ankle pain for which he was seen 2 weeks ago. He was placed in a cam walker but states that this has improved his discomfort. He states that he is not having any pain in the knee Any new injury, since being seen last: No Is there any overall improvement in your condition? Yes, Does anything make it worse?: Yes, Prolonged standing, walking on uneven surfaces Does anything make it better?: Yes, activity modification and CAM Walker REVIEW OF SYMPTOMS: Integumentary: Any recent skin changes or rashes? No Neurologic: Any numbness or tingling in the LOCAL AREA? No Endocrine: Any diagnosis of diabetes? Yes Hematologic: Any recent bleeding episodes? no ALLERGIES ALLERGIES Allergen Reactions Lyrica [Pregabalin] Swelling PAST MEDICAL HISTORY PAST MEDICAL HISTORY Diagnosis Date Acute on chronic diastolic congestive heart failure (HCC) 07/14/2018 GARERT (acute kidney injury) ([facility]) 03/24/2019 GARRET (acute kidney injury) (HCC) 03/24/2019 Ankylosing spondylitis (HCC) CAD (coronary artery disease) Cellulitis Chronic combined systolic and diastolic CHF (congestive heart failure) ([facility]) 03/24/2019 CKD (chronic kidney disease) stage 3, GFR 30-59 ml/min ([facility]) 03/24/2019 Constipation Diabetes ([facility]) Gout High phosphate levels 03/24/2019 History of coronary artery bypass graft 04/18/2019 04/10/17 CARTY to LAD, SVG to PDA, SVG to OM Hx of fracture multiple bones Hyperkalemia 03/24/2019 Hypoalbuminemia 03/24/2019 Hyponatremia 03/24/2019 Hypoxia 03/24/2019 Ischemic cardiomyopathy 04/18/2019 Echocardiogram 01/10/19 Dr. Nunez: Dilated left ventricle, left ventricular ejection fraction 40%, mild to moderate systolic dysfunction, moderate concentric LVH, dilated left and right atria. Mild mitral valve thickening with papillary muscle dysfunction, mild mitral valve insufficiency, tricuspid valve insufficiency, aortic valve insufficiency, pulmonic valve insufficiency. Aortic valve calcifi NSTEMI (non-ST elevated myocardial infarction) ([facility]) 03/12/2017 [facility] admit Osteoarthritis Transition of care performed with sharing of clinical summary 04/08/2019 Admit [facility] 03/21/19-03/22/19 Discharge diagnoses chronic kidney disease with worsening creatinine, acute kidney injury Hypokalemia Toxic encephalopathy secondary to Flexeril overusage Type 2 diabetes Ischemic cardiomyopathy Coronary artery disease Ligamental cervical neck strain and acute Pulmonary hypertension Hypertension Pyuria Preadmit: to [facility] ED with slurred speech, lethargy. PAST SURGICAL HISTORY Procedure Laterality Date ARTHRP ACETBLR/PROX FEM PROSTC AGRFT/ALGRFT Right 2019 Dr Peguero CORONARY ARTERY BYPASS GRAFT 04/12/2017 x 3 FEMUR RIGHT OP SURGERY Right Repair of fracture with hardward HIP SURGERY HX Right pin KNEE ARTHROSCOPY Left x2 KNEE SURGERY HX Right TKR, right, arthoscopy x3 PAST SURGICAL HISTORY OF 09/07/2017 08/15/17 fx radius in 2 places; plate and screws.Plate and screws 09/07/17 [facility] TOE SURGERY HX Right PHYSICAL EXAMINATION Vitals: There were no vitals taken for this visit. Body Habitus:no acute distress and alert and oriented Orientation: Normal: Oriented to person, place and time Psych: normal Sensation: sensation to light touch is grossly normal bilaterally Skin: Color, texture, turgor normal. No rashes or lesions Swelling: no swelling noted Stance: normal cervical posture, shoulder alignment, and no joint deformities or swelling noted Ortho Exam Right ankle with decreased swelling Mild tenderness to palpation over the anterior ankle joint No tenderness palpation over the distal tibia or lateral malleolus Imaging : None today Proceedures : None today Assessment: Improving right ankle pain. Differential diagnosis includes stress fracture distal tibia versus osteoarthritis Plan: 1. Continue weight-bear as tolerated in the fracture orthosis particularly when out of doors or when walking on uneven surfaces 2. Follow-up for repeat clinical /radiographic evaluation Nupur De La Rosa M.D. Department of Orthopaedic Surgery [facility]09-23-2024 History of Present illness Narrative* Nupur De La Rosa MD - 05/19/2024 2:18 PM EDT REASON FOR VISIT / CHIEF COMPLAINT CHIEF COMPLAINT: Mauri Quinones is a 68 year old male who presents today for follow up office visit. Patient presents with: Right Knee - Follow Up, Fracture Right Ankle - Follow Up HISTORY OF PRESENT ILLNESS (HPI) PAIN EVALUATION 05/19/2024 1405 Pain Level: 0 Pain Location: Knee-Right Here for follow-up of his right ankle pain for which he was seen 2 weeks ago. He was placed in a cam walker but states that this has improved his discomfort. He states that he is not having any pain in the knee Any new injury, since being seen last: No Is there any overall improvement in your condition? Yes, Does anything make it worse?: Yes, Prolonged standing, walking on uneven surfaces Does anything make it better?: Yes, activity modification and CAM Walker REVIEW OF SYMPTOMS: Integumentary: Any recent skin changes or rashes? No Neurologic: Any numbness or tingling in the LOCAL AREA? No Endocrine: Any diagnosis of diabetes? Yes Hematologic: Any recent bleeding episodes? no ALLERGIES ALLERGIES Allergen Reactions Lyrica [Pregabalin] Swelling PAST MEDICAL HISTORY PAST MEDICAL HISTORY Diagnosis Date Acute on chronic diastolic congestive heart failure ([facility]) 07/14/2018 GARRET (acute kidney injury) ([facility]) 03/24/2019 GARRET (acute kidney injury) ([facility]) 03/24/2019 Ankylosing spondylitis ([facility]) CAD (coronary artery disease) Cellulitis Chronic combined systolic and diastolic CHF (congestive heart failure) ([facility]) 03/24/2019 CKD (chronic kidney disease) stage 3, GFR 30-59 ml/min ([facility]) 03/24/2019 Constipation Diabetes ([facility]) Gout High phosphate levels 03/24/2019 History of coronary artery bypass graft 04/18/2019 04/10/17 CARTY to LAD, SVG to PDA, SVG to OM Hx of fracture multiple bones Hyperkalemia 03/24/2019 Hypoalbuminemia 03/24/2019 Hyponatremia 03/24/2019 Hypoxia 03/24/2019 Ischemic cardiomyopathy 04/18/2019 Echocardiogram 01/10/19 Dr. Nunez: Dilated left ventricle, left ventricular ejection fraction 40%, mild to moderate systolic dysfunction, moderate concentric LVH, dilated left and right atria. Mild mitral valve thickening with papillary muscle dysfunction, mild mitral valve insufficiency, tricuspid valve insufficiency, aortic valve insufficiency, pulmonic valve insufficiency. Aortic valve calcifi NSTEMI (non-ST elevated myocardial infarction) ([facility]) 03/12/2017 [facility] admit Osteoarthritis Transition of care performed with sharing of clinical summary 04/08/2019 Admit [facility] 03/21/19-03/22/19 Discharge diagnoses chronic kidney disease with worsening creatinine, acute kidney injury Hypokalemia Toxic encephalopathy secondary to Flexeril overusage Type 2 diabetes Ischemic cardiomyopathy Coronary artery disease Ligamental cervical neck strain and acute Pulmonary hypertension Hypertension Pyuria Preadmit: to [facility] ED with slurred speech, lethargy. PAST SURGICAL HISTORY Procedure Laterality Date ARTHRP ACETBLR/PROX FEM PROSTC AGRFT/ALGRFT Right 2019 Dr Peguero CORONARY ARTERY BYPASS GRAFT 04/12/2017 x 3 FEMUR RIGHT OP SURGERY Right Repair of fracture with hardward HIP SURGERY HX Right pin KNEE ARTHROSCOPY Left x2 KNEE SURGERY HX Right TKR, right, arthoscopy x3 PAST SURGICAL HISTORY OF 09/07/2017 08/15/17 fx radius in 2 places; plate and screws.Plate and screws 09/07/17 [facility] TOE SURGERY HX Right PHYSICAL EXAMINATION Vitals: There were no vitals taken for this visit. Body Habitus:no acute distress and alert and oriented Orientation: Normal: Oriented to person, place and time Psych: normal Sensation: sensation to light touch is grossly normal bilaterally Skin: Color, texture, turgor normal. No rashes or lesions Swelling: no swelling noted Stance: normal cervical posture, shoulder alignment, and no joint deformities or swelling noted Ortho Exam Right ankle with decreased swelling Mild tenderness to palpation over the anterior ankle joint No tenderness palpation over the distal tibia or lateral malleolus Imaging : None today Proceedures : None today Assessment: Improving right ankle pain. Differential diagnosis includes stress fracture distal tibia versus osteoarthritis Plan: 1. Continue weight-bear as tolerated in the fracture orthosis particularly when out of doors or when walking on uneven surfaces 2. Follow-up for repeat clinical /radiographic evaluation Nupur De La Rosa M.D. Department of Orthopaedic Surgery [facility] documented in this encounterW[facility]09-[facility] History of Present illness Narrative* Liat Burger RT(Nader) - 05/07/2024 2:00 PM EDT Radiology Service Progress Note PATIENT NAME: Mauri Quinones DATE OF SERVICE: May 07, 2024 TIME: 1:31 PM PATIENT IDENTITY VERIFICATION COMPLETED USING TWO (2) IDENTIFIERS: Name and Date of confirmedby patient verbally. FALL SCREENING: Has the patient had 2 falls in the last year or 1 fall with injury or currently using an Ambulatory Assistive Device (Walker, Cane, Wheelchair, Crutches, etc.)? No PATIENT GENDER DATA: Male PATIENT RELEVANT IMPLANT DATA REVIEWED: Not Applicable PATIENT PRESENTS WITH AN IMPLANTABLE OR ATTACHED EDGE BLACKER: No RADIOLOGY DEPARTMENT: General X-ray: Exam(s) Completed: Lower Extremity X- Ray(s): Ankle, Right and Wt. Bearing PERIPHERAL IV DATA: Not applicable SIGNED BY: TIKI Dietz) May 07, 2024 1:31 PM documented in this encounterW[facility]09-11-2024 NoteHNO ID: [id number] Author: LIAT BURGER RT(R) Service: ? Author Type: Technologist Type: Progress Notes Filed: 05/07/2024 13:31 Note Text: Radiology Service Progress Note PATIENT NAME: Mauri Quinones DATE OF SERVICE: May 07, 2024 TIME: 1:31 PM PATIENT IDENTITY VERIFICATION COMPLETED USING TWO (2) IDENTIFIERS: Name and Date of confirmed by patient verbally. FALL SCREENING: Has the patient had 2 falls in the last year or 1 fall with injury or currently using an Ambulatory Assistive Device (Walker, Cane, Wheelchair, Crutches, etc.)? No PATIENT GENDER DATA: Male PATIENT RELEVANT IMPLANT DATA REVIEWED: Not Applicable PATIENT PRESENTS WITH AN IMPLANTABLE OR ATTACHED EDGE BLACKER: No RADIOLOGY DEPARTMENT: General X-ray: Exam(s) Completed: Lower Extremity X-Ray(s): Ankle, Right and Wt. Bearing PERIPHERAL IV DATA: Not applicable SIGNED BY: Liat Burger RT(R) May 07, 2024 1:31 [id number] NoteHNO ID: [id number] Author: NUPUR DE LA ROSA MD Service: ? Author Type: Physician Type: Progress Notes Filed: 06/04/2024 21:44 Note Text: FRACTURE FOLLOW-UP Mr. Quinones presents today for his follow-up visit from: Follow Up and Fracture of the Right Knee He is 11weeks post-injury and was last seen one month ago. He has been advancing his weightbearing. He reports that his knee is doing well that he has developed a recurrence of his ankle pain history: PAIN EVALUATION 05/07/2024 1302 Pain Level: 5 Pain Location: Ankle-Right Description: Aching Duration Amount of Time: -- ongoing Frequency: Intermittent Intervention/Comfort measure: Relaxation;Cold The patient denies swelling, warmth, discharge, drainage, fevers, chills, sweats. He reports compliance with therapy, sling/splint/ambulatory device/dressing/wound care, and the use of medications. Review of Systems Constitutional: Negative for fever. Respiratory: Negative for cough and shortness of breath. Cardiovascular: Negative for chest pain. He reports no change in past medical AND surgical history, medications, allergies, social history, family history and review of systems since last visit, with the exception of the following: None Radiographs: XR ANKLE GENERAL 3V AP/LAT/OBL RIGHT Narrative: * * *Final Report* * * DATE OF EXAM: May 07 2024 1:33PM LIUDMILA 5297 - XR ANKLE 3V AP/LAT/OBL RT / PROCEDURE REASON: M25.571-Acute right ankle pain * * * * Physician Interpretation * * * * PROCEDURE: Right ankle INDICATION: Acute right ankle pain . TECHNIQUE: XR ANKLE 3V AP/LAT/OBL RT COMPARISON: 02/13/2024 FINDINGS: Diffuse bone demineralization. Flattening and sclerosis of the navicula likely due to stress fracture, not present previously. Ankle mortise is symmetric. Plantar calcaneal spur. Diffuse soft tissue swelling and advanced vascular calcifications again noted. Impression: IMPRESSION: Navicular stress fracture. Crts: PSCLeslye Transcribe Date/Time: May 10 2024 3:02P Dictated by : SONG DE LA GARZA MD This examination was interpreted and the report reviewed and electronically signed by: SONG DE LA GARZA MD on May 10 2024 3:17PM EST Physical Examination: Mild tenderness over the anterior ankle joint and over the medial midfoot No effusions to the ankle Instability testing is negative positive EHL, FHL, AT, GS, Quads, and HS Positive distal pulses Negative Otis's, calf tenderness or palpable cords PROCEDURE: Not applicable Assessment: Right ankle pain related to some changes in the midfoot particularly at the navicular which were read by radiology as a stress fracture although this could be an AVN of the navicular. I have recommended treatment in a fracture orthosis and protected weightbearing will reevaluate. Plan: 1. Increase activity as noted above 2. Continue range of motion exercises 3. Follow-up for repeat clinical evaluation Nupur De La Rosa, [facility]09-11-2024 History of Present illness Narrative* Nupur De La Rosa MD - 05/07/2024 1:09 PM EDT Images from the original note were not included. FRACTURE FOLLOW-UP Mr. Quinones presents today for his follow-up visit from: Follow Up and Fracture of the Right Knee He is 11weeks post-injury and was last seen one month ago. He has been advancing his weightbearing. He reports that his knee is doing well that he has developed a recurrence of his ankle pain history: PAIN EVALUATION 05/07/2024 1302 Pain Level: 5 Pain Location: Ankle-Right Description: Aching Duration Amount of Time: -- ongoing Frequency: Intermittent Intervention/Comfort measure: Relaxation;Cold The patient denies swelling, warmth, discharge, drainage, fevers, chills, sweats. He reports compliance with therapy, sling/splint/ambulatory device/dressing/wound care, and the use of medications. Review of Systems Constitutional: Negative for fever. Respiratory: Negative for cough and shortness of breath. Cardiovascular: Negative for chest pain. He reports no change in past medical & surgical history, medications, allergies, social history, family history and review of systems since last visit, with the exception of the following: None Radiographs: XR ANKLE GENERAL 3V AP/LAT/OBL RIGHT Narrative: * * *Final Report* * * DATE OF EXAM: May 07 2024 1:33PM LIUDMILA 5297 - XR ANKLE 3V AP/LAT/OBL RT / PROCEDURE REASON: M25.571-Acute right ankle pain * * * * Physician Interpretation * * * * PROCEDURE: Right ankle INDICATION: Acute right ankle pain . TECHNIQUE: XR ANKLE 3V AP/LAT/OBL RT COMPARISON: 02/13/2024 FINDINGS: Diffuse bone demineralization. Flattening and sclerosis of the navicula likely due to stress fracture, not present previously. Ankle mortise is symmetric. Plantar calcaneal spur. Diffuse soft tissue swelling and advanced vascular calcifications again noted. Impression: IMPRESSION: Navicular stress fracture. Crts: Familonet Transcribe Date/Time: May 10 2024 3:02P Dictated by : SONG DE LA GARZA MD This examination was interpreted and the report reviewed and electronically signed by: SONG DE LA GARZA MD on May 10 2024 3:17PM EST Physical Examination: Mild tenderness over the anterior ankle joint and over the medial midfoot No effusions to the ankle Instability testing is negative positive EHL, FHL, AT, GS, Quads, and HS Positive distal pulses Negative Otis's, calf tenderness or palpable cords PROCEDURE: Not applicable Assessment: Right ankle pain related to some changes in the midfoot particularly at the navicular which were read by radiology as a stress fracture although this could be an AVN of the navicular. I have recommended treatment in a fracture orthosis and protected weightbearing will reevaluate. Plan: 1. Increase activity as noted above 2. Continue range of motion exercises 3. Follow-up for repeat clinical evaluation Nupur De La Rosa MD documented in this encounterWv[facility]08-[facility]-2024 Telephone encounter Note * Telephone Encounter - Isabela Rosado RN - 04/16/2024 9:38 AM EDT Spoke with Patient Doing ok today He iced and elevated all day yesterday and will continue to TTWB He will call back on Sunday with an update, if not needing anything sooner [facility]08-21-2024 Miscellaneous Notes* Telephone Encounter - Isabela Rosado RN - 04/16/2024 9:38 AM EDT Spoke with Patient Doing ok today He iced and elevated all day yesterday and will continue to TTWB He will call back on Sunday with an update, if not needing anything sooner * Telephone Encounter - Isabela Rosado RN - 04/16/2024 9:21 AM EDT Left message for patient to return call. * Telephone Encounter - Isabela Rosado RN - 04/15/2024 3:35 PM EDT I agree with backing off his weightbearing status to toe-touch weightbearing. This is a little confusing to me as his fracture was in the proximal tibia not the ankle. If he is still painful and swollen tomorrow please have him call the office and we will arrange for him to come in to be seen by wandad get some new x-rays at that time. Tonight and have him ice and elevate the leg toe-touch weightbearing as noted above Thanks PS Spoke with patient and relayed message. Patient verbalized understanding. * Telephone Encounter - Isabela Rosado RN - 04/15/2024 1:34 PM EDT Spoke with pt C/o ankle pain again He was doing well when he was non weight bearing until recently when he was given the ok to advancehis WBS to 100% with his walker-it has been almost 2 weeks The ankle is swelling again and it is red and warm to touch He did go to [facility] today He has been icing with no relief Has not been elevating so advised to do so Since he has not been on it it much today, the pain has decreases slightly Advised it could be due to being back on it at 100% WB after being non weight bearing for almost 9 weeks Advised to decrease WBS and advance slowly to see if that would help Please advise any other recommendations [facility] Note * Telephone Encounter - Isabela Rosado RN - 04/16/2024 9:21 AM EDT Left message for patient to return call. [facility] Telephone encounter Note* Telephone Encounter - Isabela Rosado RN - 04/15/2024 3:35 PM EDT I agree with backing off his weightbearing status to toe-touch weightbearing. This is a little confusing to me as his fracture was in the proximal tibia not the ankle. If he is still painful and swollen tomorrow please have him call the office and we will arrange for him to come in to be seen by wandad get some new x-rays at that time. Tonight and have him ice and elevate the leg toe-touch weightbearing as noted above Thanks PS Spoke with patient and relayed message. Patient verbalized understanding. [facility]08-[facility] Telephone encounter Note* Telephone Encounter - Isabela Rosado RN - 04/15/2024 1:34 PM EDT Spoke with pt C/o ankle pain again He was doing well when he was non weight bearing until recently when he was given the ok to advancehis WBS to 100% with his walker-it has been almost 2 weeks The ankle is swelling again and it is red and warm to touch He did go to [facility] today He has been icing with no relief Has not been elevating so advised to do so Since he has not been on it it much today, the pain has decreases slightly Advised it could be due to being back on it at 100% WB after being non weight bearing for almost 9 weeks Advised to decrease WBS and advance slowly to see if that would help Please advise any other recommendations [facility]08-07-[facility]24 NoteHNO ID: [id number] Author: NUPUR DE LA ROSA MD Service: ? Author Type: Physician Type: Progress Notes Filed: 04/22/2024 12:33 Note Text: FRACTURE FOLLOW-UP Mr. Quinones presents today for his follow-up visit from: Follow Up and Fracture of the Right Knee He is seven weeks post-injury and was last seen one month ago. He has been compliant with the hinged knee brace and protected weightbearing History: PAIN EVALUATION 04/02/2024 1341 Pain Level: 0 Pain Location: Knee-Right The patient denies swelling, warmth, discharge, drainage, fevers, chills, sweats. He reports compliance with therapy, sling/splint/ambulatory device/dressing/wound care, and the use of medications. Review of Systems He reports no change in past medical AND surgical history, medications, allergies, social history, family history and review of systems since last visit, with the exception of the following: None Radiographs: XR KNEE INJURY 4V AP/LAT/OBLS RIGHT Narrative: * * *Final Report* * * DATE OF EXAM: Apr 02 2024 1:37PM LIUD[facility] 5205 - XR KNEE 4V AP/LAT/OBLS RT / PROCEDURE REASON: M25.561-Right knee pain, unspecified chronicity * * * * Physician Interpretation * * * * PROCEDURE: Right knee INDICATION: Right knee pain, unspecified chronicity .Follow-up for right knee TECHNIQUE: XR KNEE 4V AP/LAT/OBLS RT COMPARISON: 03/03/2024 FINDINGS: The total knee arthroplasty remains in satisfactory position without evidence for loosening. No periprosthetic fracture or significant joint effusion. Remote, healed distal femoral fracture with intramedullary minesh again noted. Advanced vascular calcifications are noted. Impression: IMPRESSION: No acute abnormality Crts: CARMELA Transcribe Date/Time: Apr 05 2024 4:22P Dictated by : SONG DE LA GARZA MD This examination was interpreted and the report reviewed and electronically signed by: SONG DE LA GARZA MD on Apr 05 2024 4:24PM EST Physical Examination: No tenderness about the medial joint line, lateral joint line, medial femoral condyle, lateral femoral condyle Effusion: none 0 - 100 motion Positive EHL, FHL, AT, GS, Quads, and HS Positive distal pulses Negative Otis's, calf tenderness or palpable cords PROCEDURE: Not applicable Assessment: Healing proximal tibial periprosthetic fracture that was identified on CT scan taken in outlying facility. At this point I feel that he has improved enough clinically that we can advance him to weightbearing as tolerated. I have recommended that he wean out of the I ROM brace but I do recommend using it for times when he is walking on uneven surfaces or unpredictable surfaces. Plan: 1. Increase activity as noted above 2. Continue range of motion exercises 3. Follow-up for repeat clinical evaluation Nupur De La Rosa, [facility]08-07-2024 History of Present illness Narrative* Nupur De La Rosa MD - 04/02/2024 1:52 PM EDT FRACTURE FOLLOW-UP Mr. Quinones presents today for his follow-up visit from: Follow Up and Fracture of the Right Knee He is seven weeks post-injury and was last seen one month ago. He has been compliant with the hinged knee brace and protected weightbearing History: PAIN EVALUATION 04/02/2024 1341 Pain Level: 0 Pain Location: Knee-Right The patient denies swelling, warmth, discharge, drainage, fevers, chills, sweats. He reports compliance with therapy, sling/splint/ambulatory device/dressing/wound care, and the use of medications. Review of Systems He reports no change in past medical & surgical history, medications, allergies, social history, family history and review of systems since last visit, with the exception of the following: None Radiographs: XR KNEE INJURY 4V AP/LAT/OBLS RIGHT Narrative: * * *Final Report* * * DATE OF EXAM: Apr 02 2024 1:37PM LIUDM[facility] 5205 - XR KNEE 4V AP/LAT/OBLS RT / PROCEDURE REASON: M25.561-Right knee pain, unspecified chronicity * * * * Physician Interpretation * * * * PROCEDURE: Right knee INDICATION: Right knee pain, unspecified chronicity .Follow-up for right knee TECHNIQUE: XR KNEE 4V AP/LAT/OBLS RT COMPARISON: 03/03/2024 FINDINGS: The total knee arthroplasty remains in satisfactory position without evidence for loosening. No periprosthetic fracture or significant joint effusion. Remote, healed distal femoral fracture with intramedullary minesh again noted. Advanced vascular calcifications are noted. Impression: IMPRESSION: No acute abnormality Crts: CARMELA Transcribe Date/Time: Apr 05 2024 4:22P Dictated by : SONG DE LA GARZA MD This examination was interpreted and the report reviewed and electronically signed by: SONG DE LA GARZA MD on Apr 05 2024 4:24PM EST Physical Examination: No tenderness about the medial joint line, lateral joint line, medial femoral condyle, lateral femoral condyle Effusion: none 0 - 100 motion Positive EHL, FHL, AT, GS, Quads, and HS Positive distal pulses Negative Otis's, calf tenderness or palpable cords PROCEDURE: Not applicable Assessment: Healing proximal tibial periprosthetic fracture that was identified on CT scan taken inoutlying facility. At this point I feel that he has improved enough clinically that we can advance him to weightbearing as tolerated. I have recommended that he wean out of the I ROM brace but I do recommend using it for times when he is walking on uneven surfaces or unpredictable surfaces. Plan: 1. Increase activity as noted above 2. Continue range of motion exercises 3. Follow-up for repeat clinical evaluation Nupur De La Rosa MD documented in this encounterW[facility] History of Present illness Narrative* Kassidy Nunez Tech - 04/02/2024 1:20 PM EDT Radiology Service Progress Note PATIENT NAME: Mauri Quinones DATE OF SERVICE: April 02, 2024 TIME: 1:37 PM PATIENT IDENTITY VERIFICATION COMPLETED USING TWO (2) IDENTIFIERS: Name and Date of confirmedby patient verbally. FALL SCREENING: Has the patient had 2 falls in the last year or 1 fall with injury or currently using an Ambulatory Assistive Device (Walker, Cane, Wheelchair, Crutches, etc.)? No PATIENT GENDER DATA: Male PATIENT RELEVANT IMPLANT DATA REVIEWED: Not Applicable PATIENT PRESENTS WITH AN IMPLANTABLE OR ATTACHED EDGE BLACKER: No RADIOLOGY DEPARTMENT: General X-ray: Exam(s) Completed: Lower Extremity X- Ray(s): Knee, AP / LAT / OBLs Right PERIPHERAL IV DATA: Not applicable SIGNED BY: Robert Casey April 02, 2024 1:37 PM documented in this encounterW[facility]08-07-2024 NoteHNO ID: [id number] Author: KASSIDY NUNEZ Tech Service: Radiology Author Type: Graduate Nurse Type: Progress Notes Filed: 04/02/2024 13:37 Note Text: Radiology Service Progress Note PATIENT NAME: Mauri Quinones DATE OF SERVICE: April 02, 2024 TIME: 1:37 PM PATIENT IDENTITY VERIFICATION COMPLETED USING TWO (2) IDENTIFIERS: Name and Date of confirmed by patient verbally. FALL SCREENING: Has the patient had 2 falls in the last year or 1 fall with injury or currently using an Ambulatory Assistive Device (Walker, Cane, Wheelchair, Crutches, etc.)? No PATIENT GENDER DATA: Male PATIENT RELEVANT IMPLANT DATA REVIEWED: Not Applicable PATIENT PRESENTS WITH AN IMPLANTABLE OR ATTACHED EDGE BLACKER: No RADIOLOGY DEPARTMENT: General X-ray: Exam(s) Completed: Lower Extremity X-Ray(s): Knee, AP / LAT / OBLs Right PERIPHERAL IV DATA: Not applicable SIGNED BY: Robert Casey April 02, 2024 1:37 PMK[facility] [id number] Instructions* Patient Instructions* Alexus Mendez APRN.[employer] - 03/27/2024 1:02 PM EDT 1) Letter to hemodialysis 2) Follow up in 3 months documented in this encounterW[facility]08-01-2024 NoteHNO ID: [id number] Author: ALEXUS MENDEZ APRN.CNP Service: ? Author Type: Clinical Nurse Specialist Type: Progress Notes Filed: 03/27/2024 13:02 Note Text: This is a 68 year old male who presents today with: Patient presents with: Mass: Pain and lump near belly button for one week. HISTORY OF PRESENT ILLNESS: Mauri Quinones is a 68 year old male. Patient presents with: Mass: Pain and lump near belly button for one week. Umbilicus swollen for the past week. Swelling better. A little bit of discomfort relieved with acetaminophen. Occurred spontaneously. Follows with Florencia Brian- in cardiology- no chest pain, no SOB, no edema Blood sugar fasting 130-140, doesn't check regularly; makes urine CKD- on hemodialysis No recent gout flares PAST MEDICAL HISTORY: PAST MEDICAL HISTORY 07/14/2018: Acute on chronic diastolic congestive heart failure (HCC) 03/24/2019: GARRET (acute kidney injury) ([facility]) 03/24/2019: GARRET (acute kidney injury) ([facility]) No date: Ankylosing spondylitis ([facility]) No date: CAD (coronary artery disease) No date: Cellulitis 03/24/2019: Chronic combined systolic and diastolic CHF (congestive heart failure) ([facility]) 03/24/2019: CKD (chronic kidney disease) stage 3, GFR 30-59 ml/min ([facility]) No date: Constipation No date: Diabetes ([facility]) No date: Gout 03/24/2019: High phosphate levels 04/18/2019: History of coronary artery bypass graft Comment: 04/10/17 CARTY to LAD, SVG to PDA, SVG to OM No date: Hx of fracture Comment: multiple bones 03/24/2019: Hyperkalemia 03/24/2019: Hypoalbuminemia 03/24/2019: Hyponatremia 03/24/2019: Hypoxia 04/18/2019: Ischemic cardiomyopathy Comment: Echocardiogram 01/10/19 Dr. Nunez: Dilated left ventricle, left ventricular ejection fraction 40%, mild to moderate systolic dysfunction, moderate concentric LVH, dilated left and right atria. Mild mitral valve thickening with papillary muscle dysfunction, mild mitral valve insufficiency, tricuspid valve insufficiency, aortic valve insufficiency, pulmonic valve insufficiency. Aortic valve calcifi 03/12/2017: NSTEMI (non-ST elevated myocardial infarction) ([facility]) Comment: [facility] admit No date: Osteoarthritis 04/08/2019: Transition of care performed with sharing of clinical summary Comment: Admit [facility] 03/21/19-03/22/19 Discharge diagnoses chronic kidney disease with worsening creatinine, acute kidney injury Hypokalemia Toxic encephalopathy secondary to Flexeril overusage Type 2 diabetes Ischemic cardiomyopathy Coronary artery disease Ligamental cervical neck strain and acute Pulmonary hypertension Hypertension Pyuria Preadmit: to [facility] ED with slurred speech, lethargy. PAST SURGICAL HISTORY 2019: ARTHRP ACETBLR/PROX FEM PROSTC AGRFT/ALGRFT; Right Comment: Dr Peguero 04/12/2017: CORONARY ARTERY BYPASS GRAFT Comment: x 3 No date: FEMUR RIGHT OP SURGERY; Right Comment: Repair of fracture with hardward No date: HIP SURGERY HX; Right Comment: pin No date: KNEE ARTHROSCOPY; Left Comment: x2 No date: KNEE SURGERY HX; Right Comment: TKR, right, arthoscopy x3 09/07/2017: PAST SURGICAL HISTORY OF Comment: 08/15/17 fx radius in 2 places; plate and screws.Plate and screws 09/07/17 [facility] No date: TOE SURGERY HX; Right ALLERGIES Lyrica [Pregabalin] MEDICATIONS Current Outpatient Medications Medication Sig traMADol (ULTRAM) 50 mg tablet Take 50 mg by mouth every 6 hours as needed for pain. aspirin, enteric coated (ASPIRIN, ENTERIC COATED) 81 mg EC tablet Take 81 mg by mouth once daily. Pt to call and clarify if needs to stop sevelamer carbonate (RENVELA) 800 mg tablet Take 800 mg by mouth three times daily with meals. B Complex-Vitamin C-Folic Acid (NEPHRO-SAVANAH) 0.8 mg tab Take 1 tablet by mouth every morning. loratadine (CLARITIN) 10 mg tablet Take 1 tablet by mouth once daily. bumetanide (BUMEX) 2 mg tablet Take 2 mg by mouth every morning. melatonin 5 mg tablet Take 10 mg by mouth at bedtime as needed for for insomnia. acetaminophen (TYLENOL EX STR RAPID RELEASE ORAL) Take 1-2 capsules by mouth every 6 hours as needed (pain). atorvastatin (LIPITOR) 40 mg tablet Take 40 mg by mouth daily at bedtime. doxazosin (CARDURA) 4 mg tablet Take 0.5 tablets by mouth twice daily. carvedilol (COREG) 25 mg tablet Take 12.5 mg by mouth twice daily with meals. latanoprost (XALATAN) 0.005 % ophthalmic solution Use 1 Drop in both eyes daily at bedtime. into affected eye(s). pantoprazole DR (PROTONIX) 40 mg tablet Take 1 tablet by mouth twice daily before meals (0600/1600). (Patient taking differently: Take 40 mg by mouth every morning.) insulin detemir U-100 (LEVEMIR FLEXTOUCH U-100 INSULN) 100 unit/mL (3 mL) injection pen Inject 15 Units subcutaneously daily at bedtime. (Patient taking differently: Inject 8 Units subcutaneously daily at bedtime. Levels have been good so he currently is not taking unless BS elevates) No current facility-ad (more content not included)...[facility] 03-27-2024 History of Present illness Narrative* Alexus Mendez APRN.[facility] - 03/27/2024 12:45 PM EDT This is a 68 year old male who presents today with: Patient presents with: Mass: Pain and lump near belly button for one week. HISTORY OF PRESENT ILLNESS: Mauri Quinones is a 68 year old male. Patient presents with: Mass: Pain and lump near belly button for one week. Umbilicus swollen for the past week. Swelling better. A little bit of discomfort relieved with acetaminophen. Occurred spontaneously. Follows with Florencia Brian- in cardiology- no chest pain, no SOB, no edema Blood sugar fasting 130-140, doesn't check regularly; makes urine CKD- on hemodialysis No recent gout flares PAST MEDICAL HISTORY: PAST MEDICAL HISTORY 07/14/2018: Acute on chronic diastolic congestive heart failure (HCC) 03/24/2019: GARRET (acute kidney injury) (HCC) 03/24/2019: GARRET (acute kidney injury) (HCC) No date: Ankylosing spondylitis (HCC) No date: CAD (coronary artery disease) No date: Cellulitis 03/24/2019: Chronic combined systolic and diastolic CHF (congestive heart failure) ([facility]) 03/24/2019: CKD (chronic kidney disease) stage 3, GFR 30-59 ml/min ([facility]) No date: Constipation No date: Diabetes ([facility]) No date: Gout 03/24/2019: High phosphate levels 04/18/2019: History of coronary artery bypass graft Comment: 04/10/17 ACRTY to LAD, SVG to PDA, SVG to OM No date: Hx of fracture Comment: multiple bones 03/24/2019: Hyperkalemia 03/24/2019: Hypoalbuminemia 03/24/2019: Hyponatremia 03/24/2019: Hypoxia 04/18/2019: Ischemic cardiomyopathy Comment: Echocardiogram 01/10/19 Dr. Nunez: Dilated left ventricle, left ventricular ejection fraction 40%, mild to moderate systolic dysfunction, moderate concentric LVH, dilated left and right atria. Mild mitral valve thickening with papillary muscle dysfunction, mild mitral valve insufficiency, tricuspid valve insufficiency, aortic valve insufficiency, pulmonic valve insufficiency. Aortic valve calcifi 03/12/2017: NSTEMI (non-ST elevated myocardial infarction) ([facility]) Comment: [facility] admit No date: Osteoarthritis 04/08/2019: Transition of care performed with sharing of clinical summary Comment: Admit [facility] 03/21/19-03/22/19 Discharge diagnoses chronic kidney disease with worsening creatinine, acute kidney injury Hypokalemia Toxic encephalopathy secondary to Flexeril overusage Type 2 diabetes Ischemic cardiomyopathy Coronary artery disease Ligamental cervical neck strain and acute Pulmonary hypertension Hypertension Pyuria Preadmit: to [facility] ED with slurred speech, lethargy. PAST SURGICAL HISTORY 2019: ARTHRP ACETBLR/PROX FEM PROSTC AGRFT/ALGRFT; Right Comment: Dr Peguero 04/12/2017: CORONARY ARTERY BYPASS GRAFT Comment: x 3 No date: FEMUR RIGHT OP SURGERY; Right Comment: Repair of fracture with hardward No date: HIP SURGERY HX; Right Comment: pin No date: KNEE ARTHROSCOPY; Left Comment: x2 No date: KNEE SURGERY HX; Right Comment: TKR, right, arthoscopy x3 09/07/2017: PAST SURGICAL HISTORY OF Comment: 08/15/17 fx radius in 2 places; plate and screws.Plate and screws 09/07/17 [facility] No date: TOE SURGERY HX; Right ALLERGIES Lyrica [Pregabalin] MEDICATIONS Current Outpatient Medications Medication Sig traMADol (ULTRAM) 50 mg tablet Take 50 mg by mouth every 6 hours as needed for pain. aspirin, enteric coated (ASPIRIN, ENTERIC COATED) 81 mg EC tablet Take 81 mg by mouth once daily. Pt to call and clarify if needs to stop sevelamer carbonate (RENVELA) 800 mg tablet Take 800 mg by mouth three times daily with meals. B Complex-Vitamin C-Folic Acid (NEPHRO-SAVANAH) 0.8 mg tab Take 1 tablet by mouth every morning. loratadine (CLARITIN) 10 mg tablet Take 1 tablet by mouth once daily. bumetanide (BUMEX) 2 mg tablet Take 2 mg by mouth every morning. melatonin 5 mg tablet Take 10 mg by mouth at bedtime as needed for for insomnia. acetaminophen (TYLENOL EX STR RAPID RELEASE ORAL) Take 1-2 capsules by mouth every 6 hours as needed (pain). atorvastatin (LIPITOR) 40 mg tablet Take 40 mg by mouth daily at bedtime. doxazosin (CARDURA) 4 mg tablet Take 0.5 tablets by mouth twice daily. carvedilol (COREG) 25 mg tablet Take 12.5 mg by mouth twice daily with meals. latanoprost (XALATAN) 0.005 % ophthalmic solution Use 1 Drop in both eyes daily at bedtime. into affected eye(s). pantoprazole DR (PROTONIX) 40 mg tablet Take 1 tablet by mouth twice daily before meals (0600/1600). (Patient taking differently: Take 40 mg by mouth every morning.) insulin detemir U-100 (LEVEMIR FLEXTOUCH U-100 INSULN) 100 unit/mL (3 mL) injection pen Inject 15 Units subcutaneously daily at bedtime. (Patient taking differently: Inject 8 Units subcutaneously daily at bedtime. Levels have been good so he currently is not taking unless BS elevates) No current facility-administered medications for this visit. FAMILY HISTORY Problem Relation Age of Onset Arthritis Mother Coronary Artery Disease Mother Diabetes Mother Heart Mother Hypertension Mother Alcohol/Drug Father Arthritis Father Heart Father Hypertension Father Social History Tobacco Use Smoking status: Never Smokeless tobacco: Former Types: Chew Quit date: 04/17/2017 Substance Use Topics Alcohol use: No Comment: seldom Drug use: No EXAM: BP 158/82 Pulse 66 SpO2 95% PHYSICAL EXAM: Physical Exam Vitals reviewed. Constitutional: Appearance: Normal appearance. Cardiovascular: Rate and Rhythm: Normal rate and regular rhythm. Pulses: Normal pulses. Heart sounds: Murmur heard. No gallop. Comments: Soft ANA @ sternal border, no lower ext. edema Pulmonary: Effort: Pulmonary effort is normal. Breath sounds: Normal breath sounds. Abdominal: General: Bowel sounds are normal. Palpations: Abdomen is soft. Comments: Umbilical hernia- very small- reduces easily Musculoskeletal: Comments: Presents in a wheel chair- right knee stabilizer on Skin: General: Skin is warm and dry. Neurological: Mental Status: He is alert. LABS: ASSESSMENT/PLAN: 1. Umbilical hernia without obstruction or gangrene - ICD9: 553.1, ICD10: K42.9 (primary diagnosis) Discussed risk and very small - Educated on Signs and Sx of incarceration - Will monitor 2. Seasonal allergic rhinitis due to pollen - ICD9: 477.0, ICD10: J30.1 Stable on loratadine - LORATADINE 10 MG TABLET 3. Ischemic cardiomyopathy - ICD9: 414.8, ICD10: I25.5 Follows with [facility] 4. History of coronary artery bypass graft - ICD9: V45.81, ICD10: Z95.1 Follows with [facility] 5. JOHNY (obstructive sleep apnea) - ICD9: 327.23, ICD10: G47.33 Did not go for the test 6. PVD (peripheral vascular disease) (HCC) - ICD9: 443.9, ICD10: I73.9 Ongoing Discussed treatment plan and patient voices understanding. Patient's questions answered appropriately. Medications and potential side effects were discussed and patient voices understanding. Return to the office as scheduled or as needed for worsening/no improvement. documented in this encounterW[facility]07-[facility]24 NoteHNO ID: [id number] Author: NUPUR DE LA ROSA MD Service: ? Author Type: Physician Type: Progress Notes Filed: 03/03/2024 13:27 Note Text: FRACTURE FOLLOW-UP Mr. Quinones presents today for his follow-up visit from: Follow Up and Fracture of the Right Knee He is five weeks post-injury and was last seen three weeks ago. He was is having a nondisplaced proximal tibial periprosthetic [place] Presented here for definitive care. Review of his x-rays again showed nondisplaced tibial plateau fracture adjacent to a previous total knee arthroplasty. He has been in the fracture orthosis since his last visit has been maintaining a nonweightbearing status and states that the knee is feeling comfortable History: PAIN EVALUATION 02/25/2024 1020 03/03/2024 1304 Pain Level: 5 0 Pain Location: Leg-Right Knee-Right Duration Units: Hours -- Frequency: Intermittent Intermittent Intervention/Comfort measure: Medication Medication The patient denies swelling, warmth, discharge, drainage, fevers, chills, sweats. He reports compliance with therapy, sling/splint/ambulatory device/dressing/wound care, and the use of medications. Review of Systems He reports no change in past medical AND surgical history, medications, allergies, social history, family history and review of systems since last visit, with the exception of the following: None Radiographs: X-rays of the right knee today show that the total knee arthroplasty components as well as his femoral intramedullary minesh remained intact and well aligned. I am not seeing any obvious signs of fracture at the tibia. His initial break was diagnosed on the CT scan Physical Examination: Minimal tenderness about the proximal tibia Effusion: none 0 - 95 motion Positive EHL, FHL, AT, GS, Quads, and HS Positive distal pulses Negative Otis's, calf tenderness or palpable cords PROCEDURE: Not applicable Assessment: Stable tibial periprosthetic fracture. Plan: 1. I have unhooked the hinges on his I ROM brace to allow him full range of motion 2. Continue toe-touch weightbearing only 3. Follow-up 4 weeks for repeat clinical/radiographic evaluation and possible activity advancement Nupur De La Rosa [facility]07-08-2024 History of Present illness Narrative* Nupur De La Rosa MD - 03/03/2024 1:14 PM EDT Images from the original note were not included. FRACTURE FOLLOW-UP Mr. Quinones presents today for his follow-up visit from: Follow Up and Fracture of the Right Knee He is five weeks post-injury and was last seen three weeks ago. He was is having a nondisplaced proximal tibial periprosthetic [place].Presented here for definitive care. Review of his x-rays again showed nondisplaced tibial plateau fracture adjacent to a previous total knee arthroplasty. He has been in the fracture orthosis since his last visit has been maintaining a nonweightbearing status and states that the knee is feeling comfortable History: PAIN EVALUATION 02/25/2024 1020 03/03/2024 1304 Pain Level: 5 0 Pain Location: Leg-Right Knee-Right Duration Units: Hours -- Frequency: Intermittent Intermittent Intervention/Comfort measure: Medication Medication The patient denies swelling, warmth, discharge, drainage, fevers, chills, sweats. He reports compliance with therapy, sling/splint/ambulatory device/dressing/wound care, and the use of medications. Review of Systems He reports no change in past medical & surgical history, medications, allergies, social history, family history and review of systems since last visit, with the exception of the following: None Radiographs: X-rays of the right knee today show that the total knee arthroplasty components as well as his femoral intramedullary minesh remained intact and well aligned. I am not seeing any obvious signs of fracture at the tibia. His initial break was diagnosed on the CT scan Physical Examination: Minimal tenderness about the proximal tibia Effusion: none 0 - 95 motion Positive EHL, FHL, AT, GS, Quads, and HS Positive distal pulses Negative Otis's, calf tenderness or palpable cords PROCEDURE: Not applicable Assessment: Stable tibial periprosthetic fracture. Plan: 1. I have unhooked the hinges on his I ROM brace to allow him full range of motion 2. Continue toe-touch weightbearing only 3. Follow-up 4 weeks for repeat clinical/radiographic evaluation and possible activity advancement Nupur De La Rosa MD [facility] History of Present illness Narrative* Liat Burger, RT(R) - 03/03/2024 12:20 PM EDT Radiology Service Progress Note PATIENT NAME: Mauri Quinones DATE OF SERVICE: March 03, 2024 TIME: 1:21 PM PATIENT IDENTITY VERIFICATION COMPLETED USING TWO (2) IDENTIFIERS: Name and Date of confirmedby patient verbally. FALL SCREENING: Has the patient had 2 falls in the last year or 1 fall with injury or currently using an Ambulatory Assistive Device (Walker, Cane, Wheelchair, Crutches, etc.)? No PATIENT GENDER DATA: Male PATIENT RELEVANT IMPLANT DATA REVIEWED: Not Applicable PATIENT PRESENTS WITH AN IMPLANTABLE OR ATTACHED EDGE BLACKER: No RADIOLOGY DEPARTMENT: General X-ray: Exam(s) Completed: Lower Extremity X- Ray(s): Knee, AP / Lat / Tunne / Merchant Right PERIPHERAL IV DATA: Not applicable SIGNED BY: RT Mirela(Nader) March 03, 2024 1:21 PM documented in this encounterW[facility]07-08-2024 NoteHNO ID: [id number] Author: LIAT BURGER RT(R) Service: ? Author Type: Technologist Type: Progress Notes Filed: 03/03/2024 13:22 Note Text: Radiology Service Progress Note PATIENT NAME: Mauri Quinones DATE OF SERVICE: March 03, 2024 TIME: 1:21 PM PATIENT IDENTITY VERIFICATION COMPLETED USING TWO (2) IDENTIFIERS: Name and Date of confirmed by patient verbally. FALL SCREENING: Has the patient had 2 falls in the last year or 1 fall with injury or currently using an Ambulatory Assistive Device (Walker, Cane, Wheelchair, Crutches, etc.)? No PATIENT GENDER DATA: Male PATIENT RELEVANT IMPLANT DATA REVIEWED: Not Applicable PATIENT PRESENTS WITH AN IMPLANTABLE OR ATTACHED EDGE BLACKER: No RADIOLOGY DEPARTMENT: General X-ray: Exam(s) Completed: Lower Extremity X-Ray(s): Knee, AP / Lat / Tunne / Merchant Right PERIPHERAL IV DATA: Not applicable SIGNED BY: RT Mirela(Nader) March 03, 2024 1:21 PMK[facility] [id number] Telephone encounter Note* Telephone Encounter - Traci Floyd RN - 02/20/2024 2:35 PM EDT I sent a MyChart message to patient regarding a Toradol script being called into pharmacy. [facility]06[facility] Miscellaneous Notes* Telephone Encounter - Traci Floyd RN - 02/20/2024 2:35 PM EDT I sent a Clippership Intlhart message to patient regarding a Toradol script being called into pharmacy. * Telephone Encounter - Traci Floyd RN - 02/20/2024 12:52 PM EDT I forwarded the request to your provider. * Telephone Encounter - Kathy Day - 02/20/2024 12:23 PM EDT Prescription Refill Information The patient has been identified by name and date of : Yes Caregiver verified no other encounters exist for this prescription request: Yes Caregiver confirmed with patient/requestor that no other refills are due, in the near future, with this provider at this time: Yes The last office visit in the department: 02/13/24 Does the patient have a future office visit with this provider/department: Yes Requested Prescriptions Pending Prescriptions Disp Refills HYDROcodone-acetaminophen (NORCO) 5-325 mg per tablet Sig: Take 1 tablet by mouth. Kathy Dya February 20, 2024 12:24 PM documented in this encounterW[facility]06-26-2024 Telephone encounter Note * Telephone Encounter - Traci Floyd RN - 02/20/2024 12:52 PM EDT I forwarded the request to your provider. [facility]06-[facility] Telephone encounter Note* Telephone Encounter - Kathy Day - 02/20/2024 12:23 PM EDT Prescription Refill Information The patient has been identified by name and date of : Yes Caregiver verified no other encounters exist for this prescription request: Yes Caregiver confirmed with patient/requestor that no other refills are due, in the near future, with this provider at this time: Yes The last office visit in the department: 02/13/24 Does the patient have a future office visit with this provider/department: Yes Requested Prescriptions Pending Prescriptions Disp Refills HYDROcodone-acetaminophen (NORCO) 5-325 mg per tablet Sig: Take 1 tablet by mouth. Kathy Day February 20, 2024 12:24 PM [facility]06-[facility]24 NoteHNO ID: [id number] Author: NUPUR DE LA ROSA MD Service: ? Author Type: Physician Type: Progress Notes Filed: 02/15/2024 17:28 Note Text: DEPARTMENT OF ORTHOPAEDICS HISTORY OF PRESENT ILLNESS: This is a pleasant 68 year old male, who presents today with a chief complaint of right knee pain. He complains of sharp and aching pain about the anterior and posterior aspect of approximately 11days duration. This pain is constant. He reports trauma. He complains that the pain is 4/10. He denies nocturnal pain. The pain is exacerbated by walking. Previous treatments have included knee immobilizer. He denies proximal radiation. He denies distal radiation. He denies numbness, tingling, or electric shocks. He reports popping. He reports swelling and/or warmth. Patient has had multiple issues with the right leg in the past including fractures that required intramedullary rodding and total knee arthroplasty PAIN EVALUATION 02/08/2024 1005 02/13/2024 1440 Pain Level: 8 4 Pain Location: Leg-Right Leg-Right Description: Aching;Sore;Throbbing Aching Duration Amount of Time: -- 11 Duration Units: -- Days Frequency: Continuous Continuous Intervention/Comfort measure: Medication Medication;Splinting PAST MEDICAL HISTORY Diagnosis Date Acute on chronic diastolic congestive heart failure (HCC) 07/14/2018 GARRET (acute kidney injury) ([facility]) 03/24/2019 GARRET (acute kidney injury) ([facility]) 03/24/2019 Ankylosing spondylitis ([facility]) CAD (coronary artery disease) Cellulitis Chronic combined systolic and diastolic CHF (congestive heart failure) ([facility]) 03/24/2019 CKD (chronic kidney disease) stage 3, GFR 30-59 ml/min ([facility]) 03/24/2019 Constipation Diabetes ([facility]) Gout High phosphate levels 03/24/2019 History of coronary artery bypass graft 04/18/2019 04/10/17 CARTY to LAD, SVG to PDA, SVG to OM Hx of fracture multiple bones Hyperkalemia 03/24/2019 Hypoalbuminemia 03/24/2019 Hyponatremia 03/24/2019 Hypoxia 03/24/2019 Ischemic cardiomyopathy 04/18/2019 Echocardiogram 01/10/19 Dr. Nunez: Dilated left ventricle, left ventricular ejection fraction 40%, mild to moderate systolic dysfunction, moderate concentric LVH, dilated left and right atria. Mild mitral valve thickening with papillary muscle dysfunction, mild mitral valve insufficiency, tricuspid valve insufficiency, aortic valve insufficiency, pulmonic valve insufficiency. Aortic valve calcifi NSTEMI (non-ST elevated myocardial infarction) ([facility]) 03/12/2017 [facility] admit Osteoarthritis Transition of care performed with sharing of clinical summary 04/08/2019 Admit [facility] 03/21/19-03/22/19 Discharge diagnoses chronic kidney disease with worsening creatinine, acute kidney injury Hypokalemia Toxic encephalopathy secondary to Flexeril overusage Type 2 diabetes Ischemic cardiomyopathy Coronary artery disease Ligamental cervical neck strain and acute Pulmonary hypertension Hypertension Pyuria Preadmit: to [facility] ED with slurred speech, lethargy. PAST SURGICAL HISTORY Procedure Laterality Date ARTHRP ACETBLR/PROX FEM PROSTC AGRFT/ALGRFT Right 2019 Dr Peguero CORONARY ARTERY BYPASS GRAFT 04/12/2017 x 3 FEMUR RIGHT OP SURGERY Right Repair of fracture with hardward HIP SURGERY HX Right pin KNEE ARTHROSCOPY Left x2 KNEE SURGERY HX Right TKR, right, arthoscopy x3 PAST SURGICAL HISTORY OF 09/07/2017 08/15/17 fx radius in 2 places; plate and screws.Plate and screws 09/07/17 [facility] TOE SURGERY HX Right Current Outpatient Medications Medication Sig Dispense Refill HYDROcodone-acetaminophen (NORCO) 5-325 mg per tablet Take 1 tablet by mouth every 6 (six) hours. aspirin, enteric coated (ASPIRIN, ENTERIC COATED) 81 mg EC tablet Take 81 mg by mouth once daily. Pt to call and clarify if needs to stop pantoprazole DR (PROTONIX) 40 mg tablet Take 1 tablet by mouth twice daily before meals (0600/1600). (Patient taking differently: Take 40 mg by mouth every morning.) 180 tablet 0 sevelamer carbonate (RENVELA) 800 mg tablet Take 800 mg by mouth three times daily with meals. B Complex-Vitamin C-Folic Acid (NEPHRO-SAVANAH) 0.8 mg tab Take 1 tablet by mouth every morning. bumetanide (BUMEX) 2 mg tablet Take 2 mg by mouth every morning. melatonin 5 mg tablet Take 10 mg by mouth at bedtime as needed for for insomnia. acetaminophen (TYLENOL EX STR RAPID RELEASE ORAL) Take 1-2 capsules by mouth every 6 hours as needed (pain). atorvastatin (LIPITOR) 40 mg tablet Take 40 mg by mouth daily at bedtime. doxazosin (CARDURA) 4 mg tablet Take 0.5 tablets by mouth twice daily. 11 carvedilol (COREG) 25 mg tablet Take 12.5 mg by mouth twice daily with meals. latanoprost (XALATAN) 0.005 % ophthalmic solution Use 1 Drop in both eyes daily at bedtime. into affected eye(s). 0 loratadine (CLARITIN) 10 mg tablet Take 1 tablet by mouth once daily. (Patient not taking: Reported on 02/13/2024) 30 tablet 11 insulin detemir U-100 (LEVEMIR FLEXTOU (more content not included)...[facility]06-21-2024 History of Present illness Narrative* Nupur De La Rosa MD - 02/15/2024 2:36 PM EDT Images from the original note were not included. DEPARTMENT OF ORTHOPAEDICS HISTORY OF PRESENT ILLNESS: This is a pleasant 68 year old male, who presents today with a chief complaint of right knee pain. He complains of sharp and aching pain about the anterior and posterior aspect of approximately 11days duration. This pain is constant. He reports trauma. He complains that the pain is 4/10. He denies nocturnal pain. The pain is exacerbated by walking. Previous treatments have included knee immobilizer. He denies proximal radiation. He denies distal radiation. He denies numbness, tingling, or electric shocks. He reports popping. He reports swelling and/or warmth. Patient has had multiple issues with the right leg in the past including fractures that required intramedullary rodding and total knee arthroplasty PAIN EVALUATION 02/08/2024 1005 02/13/2024 1440 Pain Level: 8 4 Pain Location: Leg-Right Leg-Right Description: Aching;Sore;Throbbing Aching Duration Amount of Time: -- 11 Duration Units: -- Days Frequency: Continuous Continuous Intervention/Comfort measure: Medication Medication;Splinting PAST MEDICAL HISTORY Diagnosis Date Acute on chronic diastolic congestive heart failure ([facility]) 07/14/2018 GARRET (acute kidney injury) ([facility]) 03/24/2019 GARRET (acute kidney injury) ([facility]) 03/24/2019 Ankylosing spondylitis ([facility]) CAD (coronary artery disease) Cellulitis Chronic combined systolic and diastolic CHF (congestive heart failure) ([facility]) 03/24/2019 CKD (chronic kidney disease) stage 3, GFR 30-59 ml/min ([facility]) 03/24/2019 Constipation Diabetes ([facility]) Gout High phosphate levels 03/24/2019 History of coronary artery bypass graft 04/18/2019 04/10/17 CARTY to LAD, SVG to PDA, SVG to OM Hx of fracture multiple bones Hyperkalemia 03/24/2019 Hypoalbuminemia 03/24/2019 Hyponatremia 03/24/2019 Hypoxia 03/24/2019 Ischemic cardiomyopathy 04/18/2019 Echocardiogram 01/10/19 Dr. Nunez: Dilated left ventricle, left ventricular ejection fraction 40%, mild to moderate systolic dysfunction, moderate concentric LVH, dilated left and right atria. Mild mitral valve thickening with papillary muscle dysfunction, mild mitral valve insufficiency, tricuspid valve insufficiency, aortic valve insufficiency, pulmonic valve insufficiency. Aortic valve calcifi NSTEMI (non-ST elevated myocardial infarction) ([facility]) 03/12/2017 [facility] admit Osteoarthritis Transition of care performed with sharing of clinical summary 04/08/2019 Admit [facility] 03/21/19-03/22/19 Discharge diagnoses chronic kidney disease with worsening creatinine, acute kidney injury Hypokalemia Toxic encephalopathy secondary to Flexeril overusage Type 2 diabetes Ischemic cardiomyopathy Coronary artery disease Ligamental cervical neck strain and acute Pulmonary hypertension Hypertension Pyuria Preadmit: to [facility] ED with slurred speech, lethargy. PAST SURGICAL HISTORY Procedure Laterality Date ARTHRP ACETBLR/PROX FEM PROSTC AGRFT/ALGRFT Right 2019 Dr Peguero CORONARY ARTERY BYPASS GRAFT 04/12/2017 x 3 FEMUR RIGHT OP SURGERY Right Repair of fracture with hardward HIP SURGERY HX Right pin KNEE ARTHROSCOPY Left x2 KNEE SURGERY HX Right TKR, right, arthoscopy x3 PAST SURGICAL HISTORY OF 09/07/2017 08/15/17 fx radius in 2 places; plate and screws.Plate and screws 09/07/17 [facility] TOE SURGERY HX Right Current Outpatient Medications Medication Sig Dispense Refill HYDROcodone-acetaminophen (NORCO) 5-325 mg per tablet Take 1 tablet by mouth every 6 (six) hours. aspirin, enteric coated (ASPIRIN, ENTERIC COATED) 81 mg EC tablet Take 81 mg by mouth once daily. Pt to call and clarify if needs to stop pantoprazole (PROTONIX) 40 mg tablet Take 1 tablet by mouth twice daily before meals (0600/1600). (Patient taking differently: Take 40 mg by mouth every morning.) 180 tablet 0 sevelamer carbonate (RENVELA) 800 mg tablet Take 800 mg by mouth three times daily with meals. B Complex-Vitamin C-Folic Acid (NEPHRO-SAVANAH) 0.8 mg tab Take 1 tablet by mouth every morning. bumetanide (BUMEX) 2 mg tablet Take 2 mg by mouth every morning. melatonin 5 mg tablet Take 10 mg by mouth at bedtime as needed for for insomnia. acetaminophen (TYLENOL EX STR RAPID RELEASE ORAL) Take 1-2 capsules by mouth every 6 hours as needed (pain). atorvastatin (LIPITOR) 40 mg tablet Take 40 mg by mouth daily at bedtime. doxazosin (CARDURA) 4 mg tablet Take 0.5 tablets by mouth twice daily. 11 carvedilol (COREG) 25 mg tablet Take 12.5 mg by mouth twice daily with meals. latanoprost (XALATAN) 0.005 % ophthalmic solution Use 1 Drop in both eyes daily at bedtime. into affected eye(s). 0 loratadine (CLARITIN) 10 mg tablet Take 1 tablet by mouth once daily. (Patient not taking: Reportedon 02/13/2024) 30 tablet 11 insulin detemir U-100 (LEVEMIR FLEXTOUCH U-100 INSULN) 100 unit/mL (3 mL) injection pen Inject 15 Units subcutaneously daily at bedtime. (Patient taking differently: Inject 8 Units subcutaneously daily at bedtime. Levels have been good so he currently is not taking unless BS elevates) 6 mL 3 No current facility-administered medications for this visit. ALLERGIES Allergen Reactions Lyrica [Pregabalin] Swelling FAMILY HISTORY Problem Relation Age of Onset Arthritis Mother Coronary Artery Disease Mother Diabetes Mother Heart Mother Hypertension Mother Alcohol/Drug Father Arthritis Father Heart Father Hypertension Father Social History Tobacco Use Smoking status: Never Smokeless tobacco: Former Types: Chew Quit date: 04/17/2017 Substance Use Topics Alcohol use: No Comment: seldom Drug use: No Occupation: disabled Activity level: recreational, sport/activity: none REVIEW OF SYSTEMS: GENERAL: negative for malaise, significant weight loss, night sweats and fever HEENT: No changes in hearing or vision, no nose bleeds or other nasal problems., No trouble swallowing RESPIRATORY: Negative for cough, wheezing and shortness of breath CARDIOVASCULAR: Negative for chest pain, leg swelling, palpitations, orthopnea GI: Negative for abdominal discomfort, hematochezia, melena, hematemesis, change in bowel habits, diarrhea, constipation, nausea or vomiting. MUSCULOSKELETAL: See HPI. PSYCH: Negative for sleep disturbance, mood disorder and recent psychosocial stressors. HEMATOLOGY Negative for prolonged bleeding, bruising easily, and swollen nodes. ENDOCRINE: Negative for cold or heat intolerance, polyuria, polydipsia and goiter. NEURO: negative for lightheadedness, dizziness, tremor, gait imbalance, syncope and seizures. RADIOGRAPHS: Last XR Knee - Impression Only XR KNEE INJURY 4V AP/LAT/OBLS RIGHT Exam End: 02/13/2024 3:21 PM (Final result) Impression: IMPRESSION: Joint effusion. Intact TKA Crts: CARMELA Transcribe Date/Time: Feb 15 2024 7:41A Dictated by : SONG DE LA GARZA MD ... Last XR Ankle - Impression Only XR ANKLE GENERAL 3V AP/LAT/OBL RIGHT Exam End: 02/13/2024 3:21 PM (Final result) Impression: IMPRESSION: No acute abnormality Crts: CARMELA Transcribe Date/Time: Feb 15 2024 7:43A Dictated by : MD Davion CHOPRA.. OTHER STUDIES: CT scan from outlying facility shows nondisplaced tibial metaphyseal fracture distal to the total knee arthroplasty components. PHYSICAL EXAM: There were no vitals taken for this visit. General: Appears stated age, well built, in no apparent distress. Psychiatric: Mood and affect appropriate. Alert and oriented x3. Musculoskeletal Exam: Gait and Station not tested due to fracture. RIGHT KNEE EXAM: Inspection Skin Positive: swelling and mild ecchymosis. Incision Positive: Well healed anterior midline incision. Atrophy No evidence of muscular atrophy. Range of Motion Knee Not tested due to fracture Patella Normal patellar mobility Palpation Effusion 5. Is finishing up a couple things in the office I will be home then. Effusion Tenderness Proximal tibial metaphysis Crepitance Not tested due to fracture Meniscus Negative medial and lateral Frannie's test Stability difficult to assess secondary to pain patient does have some tenderness over the anterior aspect of the right ankle negative Otis's, calf tenderness or palpable cords. Neurologic Exam: Intact medial leg and foot(L4), lateral leg and 1st web space(L5), lateral foot(S1) sensation in both lower extremities. Intact patellar tendon(L4), and Achilles(S1) reflexes in bothlower extremities. Vascular: 2+ pedal pulses of both lower extremities. PROCEDURE: Not applicable IMPRESSION: 1. right knee proximal tibial metaphyseal fracture with no evidence of disruption of the arthroplasty components. Patient has significant osteopenia noted on x-ray. His multiple medical problems including chronic renal failure, ankylosing spondylitis, coronary artery disease would place him at significant risk for surgical intervention. Fortunately the fracture is nondisplaced showing no disruption of the hardware. I recommend and I ROM brace initially locked in approximately 10 degrees of flexion for comfort. The knee immobilizer he was initially placed into was not fitting well and sliding down the leg. Recommend nonweightbearing and the use of a wheelchair for longer distance mobilization. Will reevaluate him clinically and radiographically and begin range of motion exercises when the fracture has started to consolidate. PLAN: 1. Medication: Continue current medications. 2. Test(s)/Imaging/Referral(s): None. 3. Intervention: Rest, Ice, Compression, Elevation, NWB, and Ambulatory assistive and wheelchair device. 4. Follow-up: Three weeks with knee xrays. Nupur De La Rosa MD I would like to thank you for the kind referral of . I appreciate the opportunity to be involved in his care. Please do not hesitate to call upon me if I may be of further assistance. * Flavio Rivera Cast Tech - 02/13/2024 4:02 PM EDT PT ASSESSMENT - CASTING ROOM Mauri presents for Application of brace. Applied X-ROM knee support to Right knee set at 10 degrees flexion Patient has been instructed in Care of brace.. Sheldon Alonso documented in this encounterW[facility]06-[facility] Telephone encounter Note * Telephone Encounter - Isabela Rosado RN - 02/15/2024 11:37 AM EDT See Clippership Intlhart message [facility]06-21-2024 Miscellaneous Notes* Telephone Encounter - Isabela Rosado RN - 02/15/2024 11:37 AM EDT See MyChart message * Telephone Encounter - Isabela Rosado RN - 02/15/2024 10:55 AM EDT Left message for patient to return call. * Telephone Encounter - Luciana Ferguson - 02/15/2024 10:34 AM EDT Ted is calling Nupur De La Rosa MD today with concern regarding Patient Update: patient called in to let us know that his insurance company needs more information regarding his injury in order forhim to the wheelchair that was ordered. Patient is asking that a member of the clinical team give him a call so he can inform them of this and what they are asking for. Patient has been identified by name and birthdate. Duration of symptoms: N/A Person calling: self Call patient at: at home [phone] (home) [phone] (work) [phone] (cell) Was an appointment scheduled: No Closing statement: Symptom Call: Thank you for calling [facility], your call is very important. A nurse will call in approximately 2-4 hours during business hours. If this is an emergency, please contact 911. Luciana Ferguson documented in this encounterWvumed[facility]06-21-2024 Telephone encounter Note * Telephone Encounter - Isabela Rosado RN - 02/15/2024 10:55 AM EDT Left message for patient to return call. [facility] Telephone encounter Note* Telephone Encounter - Luciana Ferguson - 02/15/2024 10:34 AM EDT Ted is calling Nupur De La Rosa MD today with concern regarding Patient Update: patient called in to let us know that his insurance company needs more information regarding his injury in order forhim to the wheelchair that was ordered. Patient is asking that a member of the clinical team give him a call so he can inform them of this and what they are asking for. Patient has been identified by name and birthdate. Duration of symptoms: N/A Person calling: self Call patient at: at home [phone] (home) [phone] (work) [phone] (cell) Was an appointment scheduled: No Closing statement: Symptom Call: Thank you for calling [facility], your call is very important. A nurse will call in approximately 2-4 hours during business hours. If this is an emergency, please contact 911. Luciana Ferguson [facility]06-19-2024 NoteHNO ID: [id number] Author: FLAVIO RIVERA Cast Tech Service: ? Author Type: Patent Drafter Type: Progress Notes Filed: 02/15/2024 17:28 Note Text: PT ASSESSMENT - CASTING ROOM Mauri presents for Application of brace. Applied X-ROM knee support to Right knee set at 10 degrees flexion Patient has been instructed in Care of brace.. Flavio Rivera, She[facility]on [facility]06-19-2024 History of Present illness Narrative* Kassidy Nunez Tech - 02/13/2024 3:00 PM EDT Radiology Service Progress Note PATIENT NAME: Mauri Quinones DATE OF SERVICE: February 13, 2024 TIME: 3:21 PM PATIENT IDENTITY VERIFICATION COMPLETED USING TWO (2) IDENTIFIERS: Name and Date of confirmedby patient verbally. FALL SCREENING: Has the patient had 2 falls in the last year or 1 fall with injury or currently using an Ambulatory Assistive Device (Walker, Cane, Wheelchair, Crutches, etc.)? No PATIENT GENDER DATA: Male PATIENT RELEVANT IMPLANT DATA REVIEWED: Not Applicable PATIENT PRESENTS WITH AN IMPLANTABLE OR ATTACHED EDGE BLACKER: No RADIOLOGY DEPARTMENT: General X-ray: Exam(s) Completed: Lower Extremity X- Ray(s): Knee, AP / LAT / OBLs Right and Ankle, Right PERIPHERAL IV DATA: Not applicable SIGNED BY: Robert Casey February 13, 2024 3:21 PM documented in this [facility]06-19-2024 NoteHNO ID: [id number] Author: KASSIDY NUNEZ Tech Service: Radiology Author Type: Graduate Nurse Type: Progress Notes Filed: 02/13/2024 15:21 Note Text: Radiology Service Progress Note PATIENT NAME: Mauri Quinones DATE OF SERVICE: February 13, 2024 TIME: 3:21 PM PATIENT IDENTITY VERIFICATION COMPLETED USING TWO (2) IDENTIFIERS: Name and Date of confirmed by patient verbally. FALL SCREENING: Has the patient had 2 falls in the last year or 1 fall with injury or currently using an Ambulatory Assistive Device (Walker, Cane, Wheelchair, Crutches, etc.)? No PATIENT GENDER DATA: Male PATIENT RELEVANT IMPLANT DATA REVIEWED: Not Applicable PATIENT PRESENTS WITH AN IMPLANTABLE OR ATTACHED EDGE BLACKER: No RADIOLOGY DEPARTMENT: General X-ray: Exam(s) Completed: Lower Extremity X-Ray(s): Knee, AP / LAT / OBLs Right and Ankle, Right PERIPHERAL IV DATA: Not applicable SIGNED BY: Robert Casey February 13, 2024 3:21 PMK[facility] [id number] Miscellaneous Notes* Telephone Encounter - Luciana Ferguson - 02/11/2024 9:50 AM EDT Patient will stay on scheduled * Telephone Encounter - Isabela Rosado RN - 02/07/2024 7:46 AM EDT Pt has been scheduled in a locked slot The locked slots are for DR. MCCONNELL OFFICE STAFF ONLY (please see heading) These are to be used ONLY when Dr De La Rosa is electronic development technician for [place] or [place] PAC-please do an error report on the PSS that scheduled this [facility] Few, Please call patient and reschedule with another provider in a correct slot documented in this encounterW[facility]06-17-[facility]24 Telephone encounter Note * Telephone Encounter - Luciana Ferguson - 02/11/2024 9:50 AM EDT Patient will stay on scheduled [facility]06-13-2024 Telephone encounter Note* Telephone Encounter - Isabela Rosado RN - 02/07/2024 7:46 AM EDT Pt has been scheduled in a locked slot The locked slots are for DR. MCCONNELL OFFICE STAFF ONLY (please see heading) These are to be used ONLY when Dr De La Rosa is electronic development technician for [place] or [place] PAC-please do an error report on the PSS that scheduled this Jennifer Few, Please call patient and reschedule with another provider in a correct slot [facility]06-11-2024 Telephone encounter Note* Telephone Encounter - Rigoberto Gould MD - 02/05/2024 11:30 AM EDT noted [facility]06-11-2024 Miscellaneous Notes* Telephone Encounter - Rigoberto Gould MD - 02/05/2024 11:30 AM EDT noted * Telephone Encounter - Rebecca Moe LPN - 02/05/2024 11:24 AM EDT Rozina Sheth from [facility] calling patient had fall on 02/01 in [place] and has fractured tibial plateau right leg. He is back at home now. He and his are trying to get him in with Ramón Sohail at [facility] he has seen previously. He needs no referral. documented in this encounterW[facility]06-[facility]-2024 Telephone encounter Note * Telephone Encounter - Rebecca Moe LPN - 02/05/2024 11:24 AM EDT Rozina Sheth from [facility] calling patient had fall on 02/01 in [place] and has fractured tibial plateau right leg. He is back at home now. He and his are trying to get him in with Ramón Sohail at [facility] he has seen previously. He needs no referral. [facility]05-20-2024 History of Present illness Narrative* Doreen Coleman LPN - 01/14/2024 2:20 PM EDT Patient seen today for removal of suture RLE knee. No complaints of redness, swelling, discharge,nor pain. Pathology reviewed by Dr. Ma, results given to patient. Patient verbalized understanding. The wound is cleansed, sutures removed, and steristrips placed. Assessed wound no redness, swelling, tenderness, foul odor present. Patient tolerated well. Advised patient to leave steristrips in place, steristrips will fall off in 7-14 days. Doreen Coleman LPN January 14, 2024 2:24 PM documented in this encounterWvumed[facility]05-03-2024 Instructions* Patient Instructions* Maki Knight MA - 12/28/2023 3:02 PM EDT Leave the dressing on until it comes loose in a couple days. Can shower as usual. Suture removal inapproximately 3 weeks. Call office with any concerns in the interim. [phone] Nurse electronic development technician over the weekend. Specimen sent for pathology. documented in this encounterWvumed[facility]05-03-2024 History of Present illness Narrative* Maki Knight MA - 12/28/2023 2:49 PM EDT UNIVERSAL PROTOCOL / SAFETY CHECKLIST Procedure to be Performed:Excision of skin lesion of area below right knee Sign In: A Moment of CARE was completed. Personnel directly involved with the procedure wore the appropriate PPE (Personal Protective Equipment). No special equipment needed. Patient/Surrogate Stated/Verified: PATIENT VERIFIED(optional for EMERGENT procedures): Patient name, Date of , Relevant allergies, and The intended procedure Time Out Communication: Intended patient and procedure match the source documents. Consent documented and matches the intended procedure. No relevant labs, photos, and/or imaging studies were applicable for review. Medications required for procedure verified. Sign Out: SIGN OUT (optional for EMERGENT procedures): All specimen containers correctly labeled. All instruments, equipment, possible retained foreign bodies accounted for. Post-procedure follow-up management communicated and Plan of Care Visit completed when applicable. Maki Knight MA * Melanie Rushing MD - 12/28/2023 2:45 PM EDT Ted is here for excision of skin lesion of right lower extremity. Preoperative diagnosis: skin lesion of right lower extremity causing irritation Postoperative diagnosis: skin granuloma from retained suture PROCEDURE NOTE: Description of procedure: After informed consent was obtained, patient was brought to the procedure room. Appropriate time out protocol was followed. Patient was placed in the supine position. The site of the lesion was then cleansed with a sterile surgical skin preparation. Appropriate sterile surgical drapes were placed. The skin and subcutaneous tissues at the site were then infiltrated with local anesthetic. A skin incision was made at the site in an elliptical fashion to entirely incorporate the lesion with a 15 blade scalpel. The incision was carried down to the subcutaneous tissues. Dissection was done to separate the skin lesion from the surrounding subcutaneous tissues. The lesion was excised sharply down to the subcutaneous tissues. The lesion was 1 cm in size. It was noted to be connected to a retained suture - suspect prolene suture The tissue was then removed and placed in formalin to be forwarded to pathology for analysis. Hemostasis was controlled by pressure. The skin edges were then reapproximated with interrupted 3-0 nylon suture in a simple fashion. Sterile dressing was applied. Patient tolerated procedure well. Complications: none EBL: none SPECIMENS: skin lesion of right lower extremity PLAN: Patient to return to clinic n 2-3 weeks for suture removal Keep area clean and dry. Patient acknowledges above documented in this encounterW[facility]umed[facility]04-12-2024 Nurse Note* Maki Knight MA - 12/07/2023 3:59 PM EDT REVIEW OF SYSTEMS: General: The patient denies fatigue, denies weight loss, denies weight gain, denies feeling hot, and denies feelings of cold. Eyes: The patient NOTES glaucoma, NOTES eye injury/surgery, does not wear glasses or contacts. Ear/Nose/Throat: The patient denies allergies, denies hayfever, denies ear infections, and denies bloody noses. Cardiovascular: The patient denies chest pain, NOTES heart disease, NOTES high blood pressure,denies cardiac stent, NOTES prior heart attack, denies irregular heart beat, denies high cholesterol, denies poor circulation, denies heart failure, other cardiac issues, denies claudication, denies cold feet, denies peripheral arterial stent. Respiratory: The patient denies tuberculosis, denies pneumonia, denies frequent cough, denies pulmonary embolism, denies shortness of breath, and denies coughing up blood. Gastrointestinal: The patient denies difficulty swallowing, denies acid reflux, denies ulcers, denies vomiting, denies jaundice/hepatitis, denies gallbladder problems, denies black or tarry stools, denies hemorrhoids, denies bleeding from rectum, denies diverticulitis, denies constipation, denies diarrhea, denies loss of stool control, and denies hernias. Kidney/Bladder: The patient denies kidney stones, denies urine infections, and denies bloody urine. Skin: The patient denies a history of skin cancer, denies bleeding/changing moles, and denies a history of skin rash. Neurologic: The patient denies a history of epilepsy/convulsions, denies headaches, denies head/spinal injuries, and denies stroke/TIA. Psychiatric: The patient denies psychiatric medications, denies depression, and denies voices, denies substance abuse. Endocrine: The patient denies thyroid disorders, NOTES diabetes, and denies hormonal problems. Hematologic: The patient NOTES a history of bruising, denies bleeding, and denies anemia, denies blood clots. Infections: The patient NOTES a history of measles and mumps, denies rheumatic fever, and denies sexually transmitted diseases. Musculoskeletal: The patient denies back pain/injury, denies back problems, denies sciatica, NOTES knee/foot trouble, NOTES arthritis, or denies gout. When was patient's last Mammogram screening? N/A Last Colonoscopy: none Maki Knight MA documented in this encounterWvumed[facility]04-12-2024 Instructions* Patient Instructions* Maki Knight MA - 12/07/2023 3:15 PM EDT documented in this encounterWvumed[facility]04-12-2024 History of Present illness Narrative* Melanie Rushing MD - 12/07/2023 2:39 PM EDT Mauri Quinones 1955 REFERRING PHYSICIAN: Alexus Mendez A* CHIEF COMPLAINT: New Patient and skin lesion below right knee HPI: The patient is a 68 year old male presents with a nodular skin lesion just inferior to his right knee area. He states that he has noted this lesion for about a year. It has slightly increased in size. He denies pain in the area. It is easily traumatized due to its protruding nature. He would then note bleeding at the site. He is on chronic renal dialysis and he is on aspirin. He has ischemic cardiomyopathy. PAST MEDICAL HISTORY Diagnosis Date Acute on chronic diastolic congestive heart failure ([facility]) 07/14/2018 GARRET (acute kidney injury) ([facility]) 03/24/2019 GARRET (acute kidney injury) ([facility]) 03/24/2019 Ankylosing spondylitis ([facility]) CAD (coronary artery disease) Cellulitis Chronic combined systolic and diastolic CHF (congestive heart failure) ([facility]) 03/24/2019 CKD (chronic kidney disease) stage 3, GFR 30-59 ml/min ([facility]) 03/24/2019 Constipation Diabetes ([facility]) Gout High phosphate levels 03/24/2019 History of coronary artery bypass graft 04/18/2019 04/10/17 CARTY to LAD, SVG to PDA, SVG to OM Hx of fracture multiple bones Hyperkalemia 03/24/2019 Hypoalbuminemia 03/24/2019 Hyponatremia 03/24/2019 Hypoxia 03/24/2019 Ischemic cardiomyopathy 04/18/2019 Echocardiogram 01/10/19 Dr. Nunez: Dilated left ventricle, left ventricular ejection fraction 40%, mild to moderate systolic dysfunction, moderate concentric LVH, dilated left and right atria. Mild mitral valve thickening with papillary muscle dysfunction, mild mitral valve insufficiency, tricuspid valve insufficiency, aortic valve insufficiency, pulmonic valve insufficiency. Aortic valve calcifi NSTEMI (non-ST elevated myocardial infarction) ([facility]) 03/12/2017 [facility] admit Osteoarthritis Transition of care performed with sharing of clinical summary 04/08/2019 Admit [facility] 03/21/19-03/22/19 Discharge diagnoses chronic kidney disease with worsening creatinine, acute kidney injury Hypokalemia Toxic encephalopathy secondary to Flexeril overusage Type 2 diabetes Ischemic cardiomyopathy Coronary artery disease Ligamental cervical neck strain and acute Pulmonary hypertension Hypertension Pyuria Preadmit: to [facility] ED with slurred speech, lethargy. PAST SURGICAL HISTORY Procedure Laterality Date ARTHRP ACETBLR/PROX FEM PROSTC AGRFT/ALGRFT Right CORONARY ARTERY BYPASS GRAFT 04/12/2017 x 3 FEMUR RIGHT OP SURGERY Right Repair of fracture with hardward HIP SURGERY HX Right pin KNEE ARTHROSCOPY Left x2 KNEE SURGERY HX Right TKR, right, arthoscopy x3 PAST SURGICAL HISTORY OF 09/07/2017 08/15/17 fx radius in 2 places; plate and screws.Plate and screws 09/07/17 [facility] TOE SURGERY HX Right Current Outpatient Medications Medication Sig HYDROcodone-acetaminophen (NORCO) 5-325 mg per tablet Take 1 tablet by mouth every 6 (six) hours. aspirin, enteric coated (ASPIRIN, ENTERIC COATED) 81 mg EC tablet Take 81 mg by mouth once daily. Pt to call and clarify if needs to stop sevelamer carbonate (RENVELA) 800 mg tablet Take 800 mg by mouth three times daily with meals. B Complex-Vitamin C-Folic Acid (NEPHRO-SAVANAH) 0.8 mg tab Take 1 tablet by mouth every morning. loratadine (CLARITIN) 10 mg tablet Take 1 tablet by mouth once daily. (Patient taking differently: Take 10 mg by mouth once daily as needed.) bumetanide (BUMEX) 2 mg tablet Take 2 mg by mouth every morning. melatonin 5 mg tablet Take 10 mg by mouth at bedtime as needed for for insomnia. acetaminophen (TYLENOL EX STR RAPID RELEASE ORAL) Take 1-2 capsules by mouth every 6 hours as needed (pain). atorvastatin (LIPITOR) 40 mg tablet Take 40 mg by mouth daily at bedtime. doxazosin (CARDURA) 4 mg tablet Take 0.5 tablets by mouth twice daily. carvedilol (COREG) 25 mg tablet Take 12.5 mg by mouth twice daily with meals. latanoprost (XALATAN) 0.005 % ophthalmic solution Use 1 Drop in both eyes daily at bedtime. into affected eye(s). pantoprazole DR (PROTONIX) 40 mg tablet Take 1 tablet by mouth twice daily before meals (0600/1600). (Patient taking differently: Take 40 mg by mouth every morning.) insulin detemir U-100 (LEVEMIR FLEXTOUCH U-100 INSULN) 100 unit/mL (3 mL) injection pen Inject 15 Units subcutaneously daily at bedtime. (Patient taking differently: Inject 8 Units subcutaneously daily at bedtime. Levels have been good so he currently is not taking unless BS elevates) No current facility-administered medications for this visit. ALLERGIES: Lyrica [Pregabalin] PERSONAL HISTORY: Social History Tobacco Use Smoking status: Never Smokeless tobacco: Former Types: Chew Quit date: 04/17/2017 Substance Use Topics Alcohol use: No Comment: seldom Drug use: No FAMILY HISTORY Problem Relation Age of Onset Arthritis Mother Coronary Artery Disease Mother Diabetes Mother Heart Mother Hypertension Mother Alcohol/Drug Father Arthritis Father Heart Father Hypertension Father The review of systems data was entered by the nurse and reviewed by nc Nursing Notes: Maki Knight MA 12/07/2023 4:01 PM Signed REVIEW OF SYSTEMS: General: The patient denies fatigue, denies weight loss, denies weight gain, denies feeling hot, and denies feelings of cold. Eyes: The patient NOTES glaucoma, NOTES eye injury/surgery, does not wear glasses or contacts. Ear/Nose/Throat: The patient denies allergies, denies hayfever, denies ear infections, and denies bloody noses. Cardiovascular: The patient denies chest pain, NOTES heart disease, NOTES high blood pressure,denies cardiac stent, NOTES prior heart attack, denies irregular heart beat, denies high cholesterol, denies poor circulation, denies heart failure, other cardiac issues, denies claudication, denies cold feet, denies peripheral arterial stent. Respiratory: The patient denies tuberculosis, denies pneumonia, denies frequent cough, denies pulmonary embolism, denies shortness of breath, and denies coughing up blood. Gastrointestinal: The patient denies difficulty swallowing, denies acid reflux, denies ulcers, denies vomiting, denies jaundice/hepatitis, denies gallbladder problems, denies black or tarry stools, denies hemorrhoids, denies bleeding from rectum, denies diverticulitis, denies constipation, denies diarrhea, denies loss of stool control, and denies hernias. Kidney/Bladder: The patient denies kidney stones, denies urine infections, and denies bloody urine. Skin: The patient denies a history of skin cancer, denies bleeding/changing moles, and denies a history of skin rash. Neurologic: The patient denies a history of epilepsy/convulsions, denies headaches, denies head/spinal injuries, and denies stroke/TIA. Psychiatric: The patient denies psychiatric medications, denies depression, and denies voices, denies substance abuse. Endocrine: The patient denies thyroid disorders, NOTES diabetes, and denies hormonal problems. Hematologic: The patient NOTES a history of bruising, denies bleeding, and denies anemia, denies blood clots. Infections: The patient NOTES a history of measles and mumps, denies rheumatic fever, and denies sexually transmitted diseases. Musculoskeletal: The patient denies back pain/injury, denies back problems, denies sciatica, NOTES knee/foot trouble, NOTES arthritis, or denies gout. When was patient's last Mammogram screening? N/A Last Colonoscopy: none Maki Knight MA PHYSICAL EXAMINATION: General: The patient is 68 year old male, well nourished, well hydrated in no acute distress. The patient is oriented to time, place, and person. VITALS: Blood pressure 110/62, pulse 68, weight 77.6 kg (171 lb), SpO2 96%. Body mass index is 24.54 kg/m . Head: Normal cephalic, atraumatic Eyes: pupils are equally round, sclera are clear/anicteric Neck is supple with no tracheal deviation Cardiac: normal heart sounds, regular Respiratory: Normal respiratory excursion and pattern. Abdominal exam: benign Extremities: 1 cm reddened, nodular skin lesion inferior to right knee - protruding 5mm from plane of surface; no clubbing, cyanosis or edema. Neuro: non focal Psych: normal mood Assessment IMPRESSION: nodular skin lesion - pigmented of uncertain behavior PLAN: I have discussed the above with the patient. I have offered excision of this skin lesion. I have explained the procedure to the patient. To be done in the office using local anesthesia I have counseled the patient as to the risks of the procedure, including but not limited to: infection, bleeding, injury to any blood vessels/nerves, scar tissue, wound infections, complications of anesthesia, etc. - the patient understands. The patient wishes to proceed. I have told patient he must be off aspirin at least 3 days prior to procedure I have answered all questions to the patient s satisfaction and the patient has no further questions. I have confirmed and edited as necessary, the PFSH and ROS obtained by others. Consultation requested by Alexus Mendez for an opinion regarding patient's abnormal skin lesion. My final recommendations will be communicated back to the requesting physician by way of shared Medical record or letter to requesting physician via US mail. . Diagnoses: (D48.5) 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 Medical Decision Making: Problems: Moderate: New problem with uncertain prognosis Risk: Low: Low risk from testing/treatment Medical Decision Making Level: 3 - Low Melanie Rushing MD documented in this encounterW[facility]03-14-[facility] History of Present illness Narrative* Ivet Padilla RT(R) - 11/08/2023 2:50 PM EDT Radiology Service Progress Note PATIENT NAME: Mauri Quinones DATE OF SERVICE: November 08, 2023 TIME: 3:12 PM PATIENT IDENTITY VERIFICATION COMPLETED USING TWO (2) IDENTIFIERS: Name and Date of confirmedby patient verbally. FALL SCREENING: Has the patient had 2 falls in the last year or 1 fall with injury or currently using an Ambulatory Assistive Device (Walker, Cane, Wheelchair, Crutches, etc.)? Yes, Patient High Riskfor Falls What interventions were put in place to prevent falls during this visit? Offered Assistance with Transfers/Clothing, Instructed Patient to Remain Seated (Not on Exam Table) Until Exam, and Increased Observations by Caregivers PATIENT GENDER DATA: Male PATIENT RELEVANT IMPLANT DATA REVIEWED: Yes PATIENT PRESENTS WITH AN IMPLANTABLE OR ATTACHED EDGE BLACKER: No RADIOLOGY DEPARTMENT: General X-ray: Exam(s) Completed: Lower Extremity X- Ray(s): Tibia Fibula, Right PERIPHERAL IV DATA: Not applicable SIGNED BY: RT Haroon(R) November 08, 2023 3:12 PM documented in this encounterWvumed[facility]03-14-2024 Instructions* Patient Instructions* Alexus Mendez APRN.CNS - 11/08/2023 2:35 PM EDT 1) Get Xray right tibia 2) Referred to general surgery 3) Schedule follow up in 6 weeks documented in this encounterW[facility]umed[facility]03-14-2024 History of Present illness Narrative* Alexus Mendez APRN.CNS - 11/08/2023 2:20 PM EDT This is a 68 year old male who presents today with: Patient presents with: Lump: Small, soft bump below right knee. About 1 year HISTORY OF PRESENT ILLNESS: Mauri Quinones is a 68 year old male. Patient presents with: Lump: Small, soft bump below right knee. About 1 year Hx of LTKA & end stage renal disease on hemodialysis Medial and distal to left knee, there is a red, firm, freely moving nodule that has a scale and possibly a puncture with foreign body. Tender if jeans rub on it or palpated. Lateral to lesion, incision that is healed is warm to the touch but not red. Present for a about a year. Maybe a little larger. No fever or chills. PAST MEDICAL HISTORY: PAST MEDICAL HISTORY Diagnosis Date Acute on chronic diastolic congestive heart failure ([facility]) 07/14/2018 GARRET (acute kidney injury) ([facility]) 03/24/2019 GARRET (acute kidney injury) ([facility]) 03/24/2019 Ankylosing spondylitis ([facility]) CAD (coronary artery disease) Cellulitis Chronic combined systolic and diastolic CHF (congestive heart failure) ([facility]) 03/24/2019 CKD (chronic kidney disease) stage 3, GFR 30-59 ml/min ([facility]) 03/24/2019 Constipation Diabetes ([facility]) Gout High phosphate levels 03/24/2019 History of coronary artery bypass graft 04/18/2019 04/10/17 CARTY to LAD, SVG to PDA, SVG to OM Hx of fracture multiple bones Hyperkalemia 03/24/2019 Hypoalbuminemia 03/24/2019 Hyponatremia 03/24/2019 Hypoxia 03/24/2019 Ischemic cardiomyopathy 04/18/2019 Echocardiogram 01/10/19 Dr. Nunez: Dilated left ventricle, left ventricular ejection fraction 40%, mild to moderate systolic dysfunction, moderate concentric LVH, dilated left and right atria. Mild mitral valve thickening with papillary muscle dysfunction, mild mitral valve insufficiency, tricuspid valve insufficiency, aortic valve insufficiency, pulmonic valve insufficiency. Aortic valve calcifi NSTEMI (non-ST elevated myocardial infarction) (HCC) 03/12/2017 [facility] admit Osteoarthritis Transition of care performed with sharing of clinical summary 04/08/2019 Admit [facility] 03/21/19-03/22/19 Discharge diagnoses chronic kidney disease with worsening creatinine, acute kidney injury Hypokalemia Toxic encephalopathy secondary to Flexeril overusage Type 2 diabetes Ischemic cardiomyopathy Coronary artery disease Ligamental cervical neck strain and acute Pulmonary hypertension Hypertension Pyuria Preadmit: to [facility] ED with slurred speech, lethargy. PAST SURGICAL HISTORY Procedure Laterality Date ARTHRP ACETBLR/PROX FEM PROSTC AGRFT/ALGRFT Right CORONARY ARTERY BYPASS GRAFT 04/12/2017 x 3 FEMUR RIGHT OP SURGERY Right Repair of fracture with hardward HIP SURGERY HX Right pin KNEE ARTHROSCOPY Left x2 KNEE SURGERY HX Right TKR, right, arthoscopy x3 PAST SURGICAL HISTORY OF 09/07/2017 08/15/17 fx radius in 2 places; plate and screws.Plate and screws 09/07/17 [facility] TOE SURGERY HX Right ALLERGIES Lyrica [Pregabalin] MEDICATIONS Current Outpatient Medications Medication Sig HYDROcodone-acetaminophen (NORCO) 5-325 mg per tablet Take 1 tablet by mouth every 6 (six) hours. aspirin, enteric coated (ASPIRIN, ENTERIC COATED) 81 mg EC tablet Take 81 mg by mouth once daily. Pt to call and clarify if needs to stop pantoprazole DR (PROTONIX) 40 mg tablet Take 1 tablet by mouth twice daily before meals (0600/1600). (Patient taking differently: Take 40 mg by mouth every morning.) sevelamer carbonate (RENVELA) 800 mg tablet Take 800 mg by mouth three times daily with meals. B Complex-Vitamin C-Folic Acid (NEPHRO-SAVANAH) 0.8 mg tab Take 1 tablet by mouth every morning. loratadine (CLARITIN) 10 mg tablet Take 1 tablet by mouth once daily. (Patient taking differently: Take 10 mg by mouth once daily as needed.) bumetanide (BUMEX) 2 mg tablet Take 2 mg by mouth every morning. melatonin 5 mg tablet Take 10 mg by mouth at bedtime as needed for for insomnia. acetaminophen (TYLENOL EX STR RAPID RELEASE ORAL) Take 1-2 capsules by mouth every 6 hours as needed (pain). atorvastatin (LIPITOR) 40 mg tablet Take 40 mg by mouth daily at bedtime. doxazosin (CARDURA) 4 mg tablet Take 0.5 tablets by mouth twice daily. carvedilol (COREG) 25 mg tablet Take 12.5 mg by mouth twice daily with meals. latanoprost (XALATAN) 0.005 % ophthalmic solution Use 1 Drop in both eyes daily at bedtime. into affected eye(s). insulin detemir U-100 (LEVEMIR FLEXTOUCH U-100 INSULN) 100 unit/mL (3 mL) injection pen Inject 15 Units subcutaneously daily at bedtime. (Patient taking differently: Inject 8 Units subcutaneously daily at bedtime. Levels have been good so he currently is not taking unless BS elevates) No current facility-administered medications for this visit. FAMILY HISTORY Problem Relation Age of Onset Arthritis Mother Coronary Artery Disease Mother Diabetes Mother Heart Mother Hypertension Mother Alcohol/Drug Father Arthritis Father Heart Father Hypertension Father Social History Tobacco Use Smoking status: Never Smokeless tobacco: Former Types: Chew Quit date: 04/17/2017 Substance Use Topics Alcohol use: No Comment: seldom Drug use: No EXAM: BP 164/92 Pulse 72 Resp 16 Wt 77.1 kg (170 lb) SpO2 97% BMI 24.39 kg/m PHYSICAL EXAM: General Appearance: Well appearing, alert, in no acute distress, well-hydrated, well nourished.. Skin: Skin color, texture, turgor normal, red nodule 3 mm that is superficial and non-fixed. No drainage. CV: S1S2, soft ANA @ sternal border PULM: CTA, chest rise & fall symmetrical LABS: Get Xray right knee for FB ASSESSMENT/PLAN: 1. 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 - ICD9: 238.2, ICD10: D48.5 Neoplasm skin vs. Foreign body - XR TIBIA FIBULA 2V AP/LAT RIGHT- looking for lytic lesion or FB - CONSULT TO GENERAL SURGERY for removal due to sterile environment, hx of TKA Discussed treatment plan and patient voices understanding. Patient's questions answered appropriately. Medications and potential side effects were discussed and patient voices understanding. Return to the office as scheduled or as needed for worsening/no improvement. Alexus Mendez APRN.[employer] MACHINE OPERATOR The patient indicates understanding of these issues and agrees with the plan. documented in this encounterW[facility] History of Present illness Narrative* Robinson Henao MD - 05/17/2023 12:26 PM EDT Patient presents with: Cough: Chest congestion, ST x3 days HPI: Feeling sick for 3 days. Positive symptoms: Cough, Sore throat, Nasal Congestion, Rhinorrhea, Negative symptoms: Shortness of breath, Fever, Chills, Malaise, Vomiting, Diarrhea, OTC: Coricidin Cold Medicine MEDICATIONS: Current Outpatient Medications Medication Sig aspirin, enteric coated (ASPIRIN, ENTERIC COATED) 81 mg EC tablet Take 81 mg by mouth once daily. Pt to call and clarify if needs to stop sevelamer carbonate (RENVELA) 800 mg tablet Take 800 mg by mouth three times daily with meals. B Complex-Vitamin C-Folic Acid (NEPHRO-SAVANAH) 0.8 mg tab Take 1 tablet by mouth every morning. loratadine (CLARITIN) 10 mg tablet Take 1 tablet by mouth once daily. (Patient taking differently: Take 10 mg by mouth once daily as needed.) bumetanide (BUMEX) 2 mg tablet Take 2 mg by mouth every morning. melatonin 5 mg tablet Take 10 mg by mouth at bedtime as needed for for insomnia. acetaminophen (TYLENOL EX STR RAPID RELEASE ORAL) Take 1-2 capsules by mouth every 6 hours as needed (pain). atorvastatin (LIPITOR) 40 mg tablet Take 40 mg by mouth daily at bedtime. doxazosin (CARDURA) 4 mg tablet Take 0.5 tablets by mouth twice daily. carvedilol (COREG) 25 mg tablet Take 12.5 mg by mouth twice daily with meals. latanoprost (XALATAN) 0.005 % ophthalmic solution Use 1 Drop in both eyes daily at bedtime. into affected eye(s). HYDROcodone-acetaminophen (NORCO) 5-325 mg per tablet Take 1 tablet by mouth every 6 (six) hours. pantoprazole DR (PROTONIX) 40 mg tablet Take 1 tablet by mouth twice daily before meals (0600/1600). (Patient taking differently: Take 40 mg by mouth every morning.) insulin detemir U-100 (LEVEMIR FLEXTOUCH U-100 INSULN) 100 unit/mL (3 mL) injection pen Inject 15 Units subcutaneously daily at bedtime. (Patient taking differently: Inject 8 Units subcutaneously daily at bedtime. Levels have been good so he currently is not taking unless BS elevates) No current facility-administered medications for this visit. ALLERGIES: ALLERGIES Allergen Reactions Lyrica [Pregabalin] Swelling VITALS: BP 154/71 Pulse 62 Temp 36.2 C (97.1 F) Resp 18 Wt 77 kg (169 lb 12.8 oz) SpO2 94% BMI 24.36 kg/m PHYSICAL EXAM: GEN: Pleasant, in no acute distress. Accompanied by his daughter HEENT: PERRL, EOMI, conjunctiva clear Ears: canals clear. TMs without erythema, bulge, or effusion Sinuses: non-tender frontal sinus, non-tender maxillary sinuses Throat: moist mucous membranes, mild erythema, no exudate Neck: supple, no thyromegaly, no lymphadenopathy HEART: regular rate and rhythm, no murmurs LUNGS: clear to auscultation, no wheezes or crackles, no increased WOB ASSESSMENT/PLAN: 1. URI, acute - ICD9: 465.9, ICD10: J06.9 - COVID NAAT, UPPER RESPIRATORY, ROUTINE - he would like to rule out COVID before visiting his wifeis in a long-term who is having surgery next week. Discussed supportive care with isolation and masking to reduce transmission of COVID and other viral illnesses. Robinson Henao MD documented in this encounterW[facility]08-28-[facility]23 [facility] 04-23-2023 [facility]08-25-2023 [facility]08-25-2023 [facility]05-11-2023 [facility]05-11-2023 [facility]05-10-2023 [facility]05-10-2023 [facility]05-09-2023 [facility]05-09-2023 [facility] 01-01-2023 NoteHNO ID: [id number] Author: Oralia Byrd RN Service: ? Author Type: Registered Nurse Type: Nursing Progress Note Filed: 01/01/2023 4:19 PM Note Text: O2 86 % on room air. Placed 2L NC on patient. Dr. Blanco notified via [employer] secure chat.[facility]05-08-2023 Miscellaneous Notes* Telephone Encounter - Aditya Summers RN - 01/01/2023 10:45 AM EDT Erica Lim, phoned to report patient was admitted to [facility] today to have femur plate (where had fracture last year) removed and replaced. documented in this encounterW[facility]05-08-2023 [facility] 01-01-2023 NoteHNO ID: [id number] Author: Vandana Sands RN Service: Nursing Author Type: Registered Nurse Type: Nursing Progress Note Filed: 01/01/2023 8:12 AM Note Text: Spinal performed by Dr. Montanez from [id number].[facility]05-08-2023 [facility]05-05-2023 [facility]05-05-2023 [facility]03-06-2023 History of Present illness Narrative* Rigoberto Gould MD - 10/30/2022 11:02 AM EST Patient presents with: Follow Up HPI: Patient presents today for office visit for follow up. Doing better since C-Diff infection. Followed up with [facility] [place] and was told to take Vancomycin along with a prescribed abx as preventative for C- Diff. Follow up prn. Still ambulates with walker. Supposed to use walker until weather breaks and is nice out. Does not use around the house that much. No falls. DM: Checking sugars every couple weeks. Numbers have been stable. HTN: No chest pain or shortness of breath. BP tends to drop after dialysis. He will be follow with cardiology to discuss. No dizziness. CARDIO: Following with [facility]. No myalgias. Continues on dialysis without difficulty. MEDICATIONS: Current Outpatient Medications Medication Sig vancomycin (VANCOCIN HCL) 125 mg capsule Vancomycin 125 mg orally 4 times daily by mouth for 10 days, then 125 mg orally 2 times daily for 7 days, then 125 mg orally once daily for 7 days, then 125 mg orally every 2 days for 2 weeks aspirin, enteric coated (ASPIRIN, ENTERIC COATED) 81 mg EC tablet Take 81 mg by mouth once daily. pollen extracts (PROSTAT ORAL) Take 30 mL by mouth twice daily. Protein supplement pantoprazole DR (PROTONIX) 40 mg tablet Take 1 tablet by mouth twice daily before meals (0600/1600). sevelamer carbonate (RENVELA) 800 mg tablet Take 800 mg by mouth three times daily with meals. B Complex-Vitamin C-Folic Acid (NEPHRO-SAVANAH) 0.8 mg tab Take 1 tablet by mouth. loratadine (CLARITIN) 10 mg tablet Take 1 tablet by mouth once daily. bumetanide (BUMEX) 2 mg tablet Take 2 mg by mouth once daily. finasteride (PROSCAR) 5 mg tablet Take 5 mg by mouth once daily. sildenafil (VIAGRA) 25 mg tablet Take 25 mg by mouth as needed (Noted on patient's paper taking 20mg tablet, 3 tablets as needed). melatonin 5 mg tablet Take 5 mg by mouth at bedtime as needed for for insomnia. hydrALAZINE (APRESOLINE) 50 mg tablet Twice daily: 50 mg dose if blood pressure less than 150/90, 100 mg dose of blood pressure greater than 150/90 Dr. Mujica (nephro) insulin detemir U-100 (LEVEMIR FLEXTOUCH U-100 INSULN) 100 unit/mL (3 mL) injection pen Inject 15 Units subcutaneously daily at bedtime. (Patient taking differently: Inject 8 Units subcutaneously daily at bedtime.) acetaminophen (TYLENOL EX STR RAPID RELEASE ORAL) Take 1-2 capsules by mouth every 6 hours as needed (pain). atorvastatin (LIPITOR) 40 mg tablet Take 40 mg by mouth once daily. doxazosin (CARDURA) 4 mg tablet Take 0.5 tablets by mouth twice daily. carvedilol (COREG) 25 mg tablet Take 12.5 mg by mouth twice daily with meals. latanoprost (XALATAN) 0.005 % ophthalmic solution Use 1 Drop in both eyes daily at bedtime. into affected eye(s). No current facility-administered medications for this visit. ALLERGIES: ALLERGIES Allergen Reactions Lyrica [Pregabalin] Swelling PAST MEDICAL HISTORY Diagnosis Date Acute on chronic diastolic congestive heart failure ([facility]) 07/14/2018 GARRET (acute kidney injury) ([facility]) 03/24/2019 GARRET (acute kidney injury) ([facility]) 03/24/2019 Ankylosing spondylitis ([facility]) CAD (coronary artery disease) Cellulitis Chronic combined systolic and diastolic CHF (congestive heart failure) ([facility]) 03/24/2019 CKD (chronic kidney disease) stage 3, GFR 30-59 ml/min ([facility]) 03/24/2019 Constipation Diabetes ([facility]) Gout High phosphate levels 03/24/2019 History of coronary artery bypass graft 04/18/2019 04/10/17 CARTY to LAD, SVG to PDA, SVG to OM Hx of fracture multiple bones Hyperkalemia 03/24/2019 Hypoalbuminemia 03/24/2019 Hyponatremia 03/24/2019 Hypoxia 03/24/2019 Ischemic cardiomyopathy 04/18/2019 Echocardiogram 01/10/19 Dr. Nunez: Dilated left ventricle, left ventricular ejection fraction 40%, mild to moderate systolic dysfunction, moderate concentric LVH, dilated left and right atria. Mild mitral valve thickening with papillary muscle dysfunction, mild mitral valve insufficiency, tricuspid valve insufficiency, aortic valve insufficiency, pulmonic valve insufficiency. Aortic valve calcifi NSTEMI (non-ST elevated myocardial infarction) ([facility]) 03/12/2017 [facility] admit Osteoarthritis Transition of care performed with sharing of clinical summary 04/08/2019 Admit [facility] 03/21/19-03/22/19 Discharge diagnoses chronic kidney disease with worsening creatinine, acute kidney injury Hypokalemia Toxic encephalopathy secondary to Flexeril overusage Type 2 diabetes Ischemic cardiomyopathy Coronary artery disease Ligamental cervical neck strain and acute Pulmonary hypertension Hypertension Pyuria Preadmit: to [facility] ED with slurred speech, lethargy. PAST SURGICAL HISTORY Procedure Laterality Date ARTHRP ACETBLR/PROX FEM PROSTC AGRFT/ALGRFT Right CORONARY ARTERY BYPASS GRAFT 04/12/2017 x 3 HIP SURGERY HX Right pin KNEE ARTHROSCOPY Left x2 KNEE SURGERY HX Right TKR, right, arthoscopy x3 PAST SURGICAL HISTORY OF 09/07/2017 08/15/17 fx radius in 2 places; plate and screws.Plate and screws 09/07/17 [facility] TOE SURGERY HX Right FAMILY HISTORY Problem Relation Age of Onset Arthritis Mother Coronary Artery Disease Mother Diabetes Mother Heart Mother Hypertension Mother Alcohol/Drug Father Arthritis Father Heart Father Hypertension Father Social History Tobacco Use Smoking status: Never Smokeless tobacco: Former Types: Chew Quit date: 04/17/2017 Substance Use Topics Alcohol use: No Comment: seldom Drug use: No Reviewed current medications, allergies, past medical history, surgical history, family history andsocial history today. REVIEW OF SYSTEMS All other reviewed and negative other than HPI. HEALTH MAINTENANCE: Reviewed health maintenance issues today and recommended the following in detail. COLORECTAL CANCER SCREENING due on 02/22/2019, declines colonoscopy DEPRESSION ASSESSMENT Never done VITALS: BP 106/66 Pulse 60 Ht 177.8 cm (5' 10) Wt 82.6 kg (182 lb) SpO2 95% BMI 26.11 kg/m Last 4 Encounter Wt Readings: Date: Wt: 07/31/2022 84.4 kg (186 lb) 06/05/2022 84.4 kg (186 lb) 04/22/2022 76.7 kg (169 lb) 12/02/2021 82.1 kg (181 lb) PHYSICAL EXAMINATION: General [...] joint swelling, deformity, or tenderness ASSESSMENT/PLAN: 1. 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 2. PVD (peripheral vascular disease) (HCC) - ICD9: 443.9, ICD10: I73.9 - continue current meds. 3. 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 due to underlying condition, unspecified proliferative retinopathy type ([facility]) - ICD9: 249.50, 362.02, ICD10: E08.3593 - stable. 4. ESRD (end stage renal disease) on dialysis ([facility]) - ICD9: 585.6, V45.11, ICD10: N18.6, Z99.2 - stable. 5. Chronic combined systolic and diastolic CHF (congestive heart failure) ([facility]) - ICD9: 428.42, 428.0, ICD10: I50.42 - stable. 6. Ankylosing spondylitis of multiple sites in spine ([facility]) - ICD9: 720.0, ICD10: M45.0 - continue meds. 7. Hypertension, essential - ICD9: 401.9, ICD10: I10 - good control - Continue current medication(s) - Goal of BP <130/80 8. Ischemic cardiomyopathy - ICD9: 414.8, ICD10: I25.5 - call if any issues. 9. JOHNY (obstructive sleep apnea) - ICD9: 327.23, ICD10: G47.33 10. Osteopenia, senile - ICD9: 733.90, ICD10: M85.80 - stable. 11. Screening for colon cancer - ICD9: V76.51, ICD10: Z12.11 - COLOGUARD 12. Type 2 diabetes mellitus without complication, with long-term current use of insulin ([facility]) - ICD9: 250.00, V58.67, ICD10: E11.9, Z79.4 - HGB A1C - LIPID PANEL, NONFASTING Rigoberto Gould MD documented in this encounterW[facility]12-[facility] History of Present illness Narrative* Rigoberto Gould MD - 07/31/2022 11:22 AM EST Patient presents with: Follow Up HPI: Patient presents today for office visit for follow up. ORIF right femur fx [facility] Which facility: [facility] Date of visit: 04/28/22 surgery fx happened on 04/[address] [facility] and left there on 06/01/22 Finally able to weight bear. Ambulates with walker Current symptoms: currently being treated with vanco for C-diff. This is his third round. Stool is still very loose. Has days where they are normal. No bloody or black stools. Weight is stable. No nausea or vomiting. No abd pain. No fever. He has to call Dr. Paiz's office today to set up appt. still going to dialysis 3x's per week. Did see [facility] 07/07/22. Stress Test ok to be postponed until healed. MEDICATIONS: Current Outpatient Medications Medication Sig vancomycin (VANCOCIN HCL) 125 mg capsule Vancomycin 125 mg orally 4 times daily by mouth for 10 days, then 125 mg orally 2 times daily for 7 days, then 125 mg orally once daily for 7 days, then 125 mg orally every 2 days for 2 weeks aspirin, enteric coated (ASPIRIN, ENTERIC COATED) 81 mg EC tablet Take 81 mg by mouth once daily. pollen extracts (PROSTAT ORAL) Take 30 mL by mouth twice daily. Protein supplement pantoprazole DR (PROTONIX) 40 mg tablet Take 1 tablet by mouth twice daily before meals (0600/1600). sevelamer carbonate (RENVELA) 800 mg tablet Take 800 mg by mouth three times daily with meals. B Complex-Vitamin C-Folic Acid (NEPHRO-SAVANAH) 0.8 mg tab Take 1 tablet by mouth. loratadine (CLARITIN) 10 mg tablet Take 1 tablet by mouth once daily. bumetanide (BUMEX) 2 mg tablet Take 2 mg by mouth once daily. finasteride (PROSCAR) 5 mg tablet Take 5 mg by mouth once daily. sildenafil (VIAGRA) 25 mg tablet Take 25 mg by mouth as needed (Noted on patient's paper taking 20mg tablet, 3 tablets as needed). melatonin 5 mg tablet Take 5 mg by mouth at bedtime as needed for for insomnia. hydrALAZINE (APRESOLINE) 50 mg tablet Twice daily: 50 mg dose if blood pressure less than 150/90, 100 mg dose of blood pressure greater than 150/90 Dr. Mujica (nephro) insulin detemir U-100 (LEVEMIR FLEXTOUCH U-100 INSULN) 100 unit/mL (3 mL) injection pen Inject 15 Units subcutaneously daily at bedtime. (Patient taking differently: Inject 8 Units subcutaneously daily at bedtime.) acetaminophen (TYLENOL EX STR RAPID RELEASE ORAL) Take 1-2 capsules by mouth every 6 hours as needed (pain). atorvastatin (LIPITOR) 40 mg tablet Take 40 mg by mouth once daily. doxazosin (CARDURA) 4 mg tablet Take 0.5 tablets by mouth twice daily. carvedilol (COREG) 25 mg tablet Take 12.5 mg by mouth twice daily with meals. latanoprost (XALATAN) 0.005 % ophthalmic solution Use 1 Drop in both eyes daily at bedtime. into affected eye(s). No current facility-administered medications for this visit. ALLERGIES: ALLERGIES Allergen Reactions Lyrica [Pregabalin] Swelling PAST MEDICAL HISTORY Diagnosis Date Acute on chronic diastolic congestive heart failure ([facility]) 07/14/2018 GARRET (acute kidney injury) ([facility]) 03/24/2019 GARRET (acute kidney injury) ([facility]) 03/24/2019 Ankylosing spondylitis ([facility]) CAD (coronary artery disease) Cellulitis Chronic combined systolic and diastolic CHF (congestive heart failure) ([facility]) 03/24/2019 CKD (chronic kidney disease) stage 3, GFR 30-59 ml/min ([facility]) 03/24/2019 Constipation Diabetes ([facility]) Gout High phosphate levels 03/24/2019 History of coronary artery bypass graft 04/18/2019 04/10/17 CARTY to LAD, SVG to PDA, SVG to OM Hx of fracture multiple bones Hyperkalemia 03/24/2019 Hypoalbuminemia 03/24/2019 Hyponatremia 03/24/2019 Hypoxia 03/24/2019 Ischemic cardiomyopathy 04/18/2019 Echocardiogram 01/10/19 Dr. Nunez: Dilated left ventricle, left ventricular ejection fraction 40%, mild to moderate systolic dysfunction, moderate concentric LVH, dilated left and right atria. Mild mitral valve thickening with papillary muscle dysfunction, mild mitral valve insufficiency, tricuspid valve insufficiency, aortic valve insufficiency, pulmonic valve insufficiency. Aortic valve calcifi NSTEMI (non-ST elevated myocardial infarction) ([facility]) 03/12/2017 [facility] admit Osteoarthritis Transition of care performed with sharing of clinical summary 04/08/2019 Admit [facility] 03/21/19-03/22/19 Discharge diagnoses chronic kidney disease with worsening creatinine, acute kidney injury Hypokalemia Toxic encephalopathy secondary to Flexeril overusage Type 2 diabetes Ischemic cardiomyopathy Coronary artery disease Ligamental cervical neck strain and acute Pulmonary hypertension Hypertension Pyuria Preadmit: to [facility] ED with slurred speech, lethargy. PAST SURGICAL HISTORY Procedure Laterality Date ARTHRP ACETBLR/PROX FEM PROSTC AGRFT/ALGRFT Right CORONARY ARTERY BYPASS GRAFT 04/12/2017 x 3 HIP SURGERY HX Right pin KNEE ARTHROSCOPY Left x2 KNEE SURGERY HX Right TKR, right, arthoscopy x3 PAST SURGICAL HISTORY OF 09/07/2017 08/15/17 fx radius in 2 places; plate and screws.Plate and screws 09/07/17 [facility] TOE SURGERY HX Right FAMILY HISTORY Problem Relation Age of Onset Arthritis Mother Coronary Artery Disease Mother Diabetes Mother Heart Mother Hypertension Mother Alcohol/Drug Father Arthritis Father Heart Father Hypertension Father Social History Tobacco Use Smoking status: Never Smokeless tobacco: Former Types: Chew Quit date: 04/17/2017 Substance Use Topics Alcohol use: No Comment: seldom Drug use: No Reviewed current medications, allergies, past medical history, surgical history, family history andsocial history today. REVIEW OF SYSTEMS All other reviewed and negative other than HPI. HEALTH MAINTENANCE: Reviewed health maintenance issues today and recommended the following in detail. PNEUMOCOCCAL(1 - PCV) Never done BP CONTROLLED (<130/80) Never done SHINGRIX VACCINE(1 of 2) Never done COLORECTAL CANCER SCREENING due on 02/22/2019 COVID-19 VACCINE(4 - Booster for Moderna series)was done DEPRESSION ASSESSMENT Never done PROSTATE CANCER SCREENING DISCUSSION -Had discussion with patient regarding risks and benefits of prostate screening. Allowed them to decide if they wished to proceed with screening including GLADIS andPSA. VITALS: BP 118/80 Pulse (!) 58 Ht 177.8 cm (5' 10) Wt 84.4 kg (186 lb) SpO2 95% BMI 26.69 kg/m Last 4 Encounter Wt Readings: Date: Wt: 06/05/2022 84.4 kg (186 lb) 04/22/2022 76.7 kg (169 lb) 12/02/2021 82.1 kg (181 lb) 04/18/2021 83.6 kg (184 lb 6.4 oz) PHYSICAL EXAMINATION: General appearance: Well appearing, alert, [...] non-tender. Bowel sounds normal. No masses, organomegaly ASSESSMENT/PLAN: 1. C. difficile colitis - ICD9: 008.45, ICD10: A04.72 (primary diagnosis) - see gi. If any issues securing appt let me know. 2. Need for vaccination - ICD9: V05.9, ICD10: Z23 - PNEUMOCOCCAL VACCINE (PREVNAR 20) 3. Arteriosclerotic heart disease (ASHD) - ICD9: 414.00, ICD10: I25.10 - stable. 4. Hypertension, essential - ICD9: 401.9, ICD10: I10 - good control 5. Ischemic cardiomyopathy - ICD9: 414.8, ICD10: I25.5 - seeing cardiology 6. ESRD (end stage renal disease) on dialysis (HCC) - ICD9: 585.6, V45.11, ICD10: N18.6, Z99.2 - per diasysis 7. JOHNY (obstructive sleep apnea) - ICD9: 327.23, ICD10: G47.33 =- not treating. Rigoberto Gould MD documented in this encounterWvumedicine [facility]11-30-2022 Miscellaneous Notes* Telephone Encounter - Florina Gale Ma - 07/26/2022 2:10 PM EST Spoke to patient and he said feeling slightly better an diarrhea is not constant. May have a loose stools one day than next not as many. Aware scheduling out a ways will fax info Florina Gale Ma * Telephone Encounter - Rigoberto Gould MD - 07/26/2022 1:52 PM EST I placed order. Check with him. Is he any better or having any problems since Albert started him on meds? It may take awhile to get into GI * Telephone Encounter - Kristan Cassidy RN - 07/26/2022 1:29 PM EST Patient calling with request for referral to Dr. Paiz, GASTRO @ [facility] for recurrent C-Diff. Kristan Cassidy RN documented in this encounterWvumedicine [facility] Hospital11-06-2022 Miscellaneous Notes* Telephone Encounter - Aditya Davis PA-C - 07/02/2022 4:51 PM EST Received text message on personal phone from Yun that cost was exorbitant for fidaxomycin. Pulsed dosing per rx. The following approved medication requests have been transmitted electronically. Requested Prescriptions Signed Prescriptions Disp Refills vancomycin (VANCOCIN HCL) 125 mg capsule 68 capsule 0 Sig: Vancomycin 125 mg orally 4 times daily by mouth for 10 days, then 125 mg orally 2 times daily for 7 days, then 125 mg orally once daily for 7 days, then 125 mg orally every 2 days for 2 weeks Authorizing Provider: Aditya DAVIS PA-C documented in this encounterWvumedicine [facility] Hospital11-03-2022 Miscellaneous Notes* Telephone Encounter - Garrison Olmedo Ma - 06/29/2022 6:55 PM EDT Patient's was notified of provider's message. * Telephone Encounter - Aditya Davis PA-C - 06/29/2022 6:42 PM EDT Please check stool: must be liquid Telephone on 06/29/22 CDIFF PCR W/RFLX EIA IF POSITIVE If positive a third time would recommend fidaxomycin instead of vancomycin. ThanksAlbert PA-C * Telephone Encounter - Susu Hernandez RN - 06/29/2022 3:23 PM EDT calls to request another round of vancomycin for patient as she reports Dr. Gould instructed todo at appointment on 06/05. She reports vancomycin was finished on 06/22/2022. reports foul smelling diarrhea started up again yesterday atleast 4 times yesterday and today. Reviewed previous note with . No weakness. No appointment with gastro scheduled yet. Encouragedwife to schedule appointment. Susu Hernandez RN documented in this encounterWvumedicine [facility] Hospital10-28-2022 Miscellaneous Notes* Telephone Encounter - Aditya Summers RN - 06/23/2022 8:40 AM EDT Phoned and reviewed provider's message. reports she is going to schedule GI consult on her day off, which would be Sunday. States she may call Dr. Paiz to schedule, has not decided yet, but whoever she schedules with, will let pcp know. * Telephone Encounter - Aditya Davis PA-C - 06/22/2022 6:42 PM EDT Phoned and talked with Yun Explained unfortunately we can't recheck stool for c.diff until 2 weeks after the last vancomycin pill (yesterday) by policy. It is not uncommon to take two weeks for stools to return to normal. This was second round with vanc. Recommended support with fluids and electrolytes (Gatorade or Propel). If he is weak, they will let me know It looks like he has a consult with GI but not yet scheduled. Please schedule. Thanks, Albert Davis PA-C * Telephone Encounter - Rebecca Moe LPN - 06/22/2022 2:05 PM EDT Patient Yun calling had seen Dr Gould on 06/05, was told to call office back if any issues. He was being treated for C-diff and completed his Vancomycin 500 mg yesterday. He was takingliquid 2.5 ml per day, it was a taper dose, 3 times daily for 7 days then 2 times daily for 7 days,then once daily for 7 days, he was at [facility] and came home. said his stool is loose foul smelling 1 to 4 times daily still. Asking if needs to have another round of Vancomycin? Patient uses [facility] for his pharmacy. Please advise documented in this encounterWvumedicine [facility] Hospital10-13-2022 Miscellaneous Notes* Telephone Encounter - Kristan Cassidy RN - 06/08/2022 4:24 PM EDT JD Ward @ [facility] calling with plan of care. PT will see patient 2 x/week for three weeks for strength, ROM and pain management. Kristan Cassidy RN documented in this encounterWvumedicine [facility] Hospital10-10-2022 Miscellaneous Notes* Telephone Encounter - Alicia Cantu LPN - 06/05/2022 3:47 PM EDT Completed. * Telephone Encounter - Aditya Summers RN - 06/05/2022 11:50 AM EDT Rozina- Cecilia Mckenzie/Carley, phoned to let provider know- patient went home from [facility] on 06-01-22, and has f/u appt with Dr. Gould today. Asking if she can have a copy of those ov notes, to haveupdated medication list. Please fax to [phone] documented in this encounterWvumedicine [facility] Hospital10-10-2022 History of Present illness Narrative* Rigoberto Gould MD - 06/05/2022 2:30 PM EDT Patient presents with: Hospital F/U HOSPITAL/ER FOLLOW UP: Reason for visit: ORIF right femur fx [facility] [place] Which facility: [facility] Date of visit: 04/28/22 surgery fx happened on 04/[address] [facility] and left there on 06/01/22 Current symptoms: currently being treated with vanco for Cdiff this is his second round stool is more solid now Still going to dialysis 3x's per week. reports that doing well at home. Needs a couple of refills pantoprazole is new to him because of having to take ASA. Also needs refill on merolazone feels like swelling has been a little worse because of his NWB status. Is NWB until07/27/22. Referred him to see nephro regarding the metalazone. See below. Has surgery per [facility] [place]. Just saw them recently. No weight bearing until Jul 27. He was at [facility] from 05/08-06/01/22. He left the facility AMA. Home health will be following up with him. His is helping him ambulate up and down entrance step with gait belt. No falls since home. Physical therapy will be twice a week. Recommended a home sleep study. He declines currently but will consider. They also wanted him to follow up with cardiology. They felt that he needed an outpatient stress test. He apparently declined doing the stress test preoperatively. They are attempting to set up an appt with [facility]. He had an old compression deformity on xray but he has no pain. No black or bloody stools. No stomach pain. Was still on oral vanco for c diff. Does seem to be improving. Still doing dialysis three times a week per Dr Jackson. Still working on weight. They did not want to follow up with gi in [place]. Suggested they follow with them. See Discharge summary from [facility]-admitted 04/23 and discharged 05/08/22 HPI: Patient presents today for office visit for hospital follow up. CONSULTING TEAMS DURING HOSPITALIZATION: Orthopedics Gastroenterology Critical care/pulmonology Spinal orthopedics Cardiology Nephrology CHIEF COMPLAINT: Fall, right knee pain REASON FOR HOSPITALIZATION: Right femur fracture s/p surgery, Acute anemia of blood loss s/p PRBC transfusion, GI bleed secondary to ulcer in the gastric antrum, C. difficile colitis. FINAL DIAGNOSIS: Right femur fracture s/p surgery. Acute anemia of blood loss s/p PRBC transfusion, stable. GI bleed secondary to ulcer in the gastric antrum, improved. Fall. C. difficile colitis Leukocytosis-improving. Acute respiratory failure with hypoxia, improved. T9 age-indeterminate compression fracture (likely chronic). CAD status post CABG Diabetes CHF ESRD, on hemodialysis Ankylosing spondylitis Possible sleep apnea Gout OPERATIONS/PROCEDURES DURING HOSPITALIZATION: EGD Right femur surgery HOSPITAL COURSE: Patient is 66-year-old male with history of CAD status post CABG, diabetes, ESRD-on hemodialysis and other medical problems who had a fall followed by having right knee pain for which he presented [facility] where he was found to have right femur fracture for which he was transferred to [facility] for further management. Please refer to initial H&P for full details. After admission- he had a rapid response considering anemia and altered mental status and he wastransferred to ICU. GI was consulted and patient had EGD done showing ulcer in the gastric antrum s/p cauterization. He received PRBC transfusion but later hemoglobin has been stable. Advised to continue Protonix 40 mg twice daily. GI input noted. He had surgery done on the right femur. Orthopedicsadvised nonweightbearing on right lower extremity for 3 months. Discussed with GI Dr. Allison recently (covering physician for Dr. Kay who initially performed the EGD). He was started on subcutaneous heparin for DVT prophylaxis. No evidence of bleeding and his hemoglobin has been stable. If there is any evidence of bleeding or hemoglobin drop it can be discontinued. He was advised a follow-up CBC in 1 week at discharge. Patient had diarrhea recently and stool studies checked were positive for C. difficile. Start on oral vancomycin with improving diarrhea. He had leukocytosis but improving aswell (WC 12.5 today, down from 32 before). No other source of infection. He will continue oral vancomycin for 1 more week at discharge. Pulmonology advised outpatient sleep study considering possiblesleep apnea. Continue CPAP nocturnally and as needed. Patient was seen by cardiology during this hos pitalization and provided preoperative clearance. Input noted. Advised outpatient stress test afterfollowing with his hand sample maker Dr. Duran. Advised to start aspirin 1 week later if no evidenceof bleeding and if hemoglobin is stable and discuss with GI before resuming aspirin. Patient was noted to have incidental T9 compression fracture (age-indeterminate, likely chronic) and was seen by spinal orthopedics. Advised outpatient follow-up as needed. PT/OT advised long-term placement which was arranged through high school social science teacher. Otherwise he is stable for discharge today with appropriate i nstructions and follow-ups. MEDICATIONS: Current Outpatient Medications Medication Sig aspirin, enteric coated (ASPIRIN, ENTERIC COATED) 81 mg EC tablet Take 81 mg by mouth once daily. pollen extracts (PROSTAT ORAL) Take 30 mL by mouth twice daily. Protein supplement Vancomycin HCl (FIRVANQ) 50 mg/mL oral liquid Take 125 mg by mouth four times daily. Cdiff metOLazone (ZAROXOLYN) 2.5 mg tablet Take 2.5 mg by mouth once daily. pantoprazole DR (PROTONIX) 40 mg tablet Take 1 tablet by mouth twice daily before meals (0600/1600). sevelamer carbonate (RENVELA) 800 mg tablet Take 800 mg by mouth three times daily with meals. B Complex-Vitamin C-Folic Acid (NEPHRO-SAVANAH) 0.8 mg tab Take 1 tablet by mouth. loratadine (CLARITIN) 10 mg tablet Take 1 tablet by mouth once daily. bumetanide (BUMEX) 2 mg tablet Take 2 mg by mouth once daily. finasteride (PROSCAR) 5 mg tablet Take 5 mg by mouth once daily. melatonin 5 mg tablet Take 5 mg by mouth at bedtime as needed for for insomnia. hydrALAZINE (APRESOLINE) 50 mg tablet Twice daily: 50 mg dose if blood pressure less than 150/90, 100 mg dose of blood pressure greater than 150/90 Dr. Mujica (nephro) insulin detemir U-100 (LEVEMIR FLEXTOUCH U-100 INSULN) 100 unit/mL (3 mL) injection pen Inject 15 Units subcutaneously daily at bedtime. (Patient taking differently: Inject 8 Units subcutaneously daily at bedtime.) pioglitazone (ACTOS) 15 mg tablet Take 1 tablet by mouth once daily. acetaminophen (TYLENOL EX STR RAPID RELEASE ORAL) Take 1-2 capsules by mouth every 6 hours as needed (pain). atorvastatin (LIPITOR) 40 mg tablet Take 40 mg by mouth once daily. doxazosin (CARDURA) 4 mg tablet Take 0.5 tablets by mouth twice daily. carvedilol (COREG) 25 mg tablet Take 12.5 mg by mouth twice daily with meals. latanoprost (XALATAN) 0.005 % ophthalmic solution Use 1 Drop in both eyes daily at bedtime. into affected eye(s). heparin 5,000 unit/mL injection Inject 1 mL subcutaneously every 12 hours. sildenafil (VIAGRA) 25 mg tablet Take 25 mg by mouth as needed (Noted on patient's paper taking 20mg tablet, 3 tablets as needed). insulin lispro (HUMALOG KWIKPEN) 100 unit/mL inpn Inject 6 Units subcutaneously w MEALS. No current facility-administered medications for this visit. ALLERGIES: ALLERGIES Allergen Reactions Lyrica [Pregabalin] Swelling PAST MEDICAL HISTORY Diagnosis Date Acute on chronic diastolic congestive heart failure ([facility]) 07/14/2018 GARRET (acute kidney injury) ([facility]) 03/24/2019 GARRET (acute kidney injury) ([facility]) 03/24/2019 Ankylosing spondylitis ([facility]) CAD (coronary artery disease) Cellulitis Chronic combined systolic and diastolic CHF (congestive heart failure) ([facility]) 03/24/2019 CKD (chronic kidney disease) stage 3, GFR 30-59 ml/min ([facility]) 03/24/2019 Constipation Diabetes ([facility]) Gout High phosphate levels 03/24/2019 History of coronary artery bypass graft 04/18/2019 04/10/17 CARTY to LAD, SVG to PDA, SVG to OM Hx of fracture multiple bones Hyperkalemia 03/24/2019 Hypoalbuminemia 03/24/2019 Hyponatremia 03/24/2019 Hypoxia 03/24/2019 Ischemic cardiomyopathy 04/18/2019 Echocardiogram 01/10/19 Dr. Nunez: Dilated left ventricle, left ventricular ejection fraction 40%, mild to moderate systolic dysfunction, moderate concentric LVH, dilated left and right atria. Mild mitral valve thickening with papillary muscle dysfunction, mild mitral valve insufficiency, tricuspid valve insufficiency, aortic valve insufficiency, pulmonic valve insufficiency. Aortic valve calcifi NSTEMI (non-ST elevated myocardial infarction) ([facility]) 03/12/2017 [facility] admit Osteoarthritis Transition of care performed with sharing of clinical summary 04/08/2019 Admit [facility] 03/21/19-03/22/19 Discharge diagnoses chronic kidney disease with worsening creatinine, acute kidney injury Hypokalemia Toxic encephalopathy secondary to Flexeril overusage Type 2 diabetes Ischemic cardiomyopathy Coronary artery disease Ligamental cervical neck strain and acute Pulmonary hypertension Hypertension Pyuria Preadmit: to [facility] ED with slurred speech, lethargy. PAST SURGICAL HISTORY Procedure Laterality Date ARTHRP ACETBLR/PROX FEM PROSTC AGRFT/ALGRFT Right CORONARY ARTERY BYPASS GRAFT 04/12/2017 x 3 HIP SURGERY HX Right pin KNEE ARTHROSCOPY Left x2 KNEE SURGERY HX Right TKR, right, arthoscopy x3 PAST SURGICAL HISTORY OF 09/07/2017 08/15/17 fx radius in 2 places; plate and screws.Plate and screws 09/07/17 [facility] TOE SURGERY HX Right FAMILY HISTORY Problem Relation Age of Onset Arthritis Mother Coronary Artery Disease Mother Diabetes Mother Heart Mother Hypertension Mother Alcohol/Drug Father Arthritis Father Heart Father Hypertension Father Social History Tobacco Use Smoking status: Never Smokeless tobacco: Former Types: Chew Quit date: 04/17/2017 Substance Use Topics Alcohol use: No Comment: seldom Drug use: No Reviewed current medications, allergies, past medical history, surgical history, family history andsocial history today. REVIEW OF SYSTEMS All other reviewed and negative other than HPI. VITALS: BP 132/64 Pulse 64 Last 4 Encounter Wt Readings: Date: Wt: 04/22/2022 76.7 kg (169 lb) 12/02/2021 82.1 kg (181 lb) 04/18/2021 83.6 kg (184 lb 6.4 oz) 04/18/2021 83.6 kg (184 lb 6.4 oz) PHYSICAL EXAMINATION: General appearance: Well appearing, alert, in no acute distress, well-hydrated, well nourished. Lungs: Lungs clear to auscultation. No wheezing, rhonchi, rales Heart: RRR without murmur, gallop, or rubs. No ectopy Abdomen: Normal abdominal exam, Abdomen soft, non-tender. Bowel sounds normal. No masses, organomegaly Extremities: No deformities, skin discoloration, clubbing or cyanosis. Good capillary refill. Edemaof right legHas been there for several weeks since break. In brace. Is improving. ASSESSMENT/PLAN: 1. Closed fracture of left lower extremity, sequela - ICD9: 905.4, ICD10: S82.92XS (primary diagnosis) - follow with surgery. 2. ESRD (end stage renal disease) on dialysis (HCC) - ICD9: 585.6, V45.11, ICD10: N18.6, Z99.2 Check with dialysis regarding the metalazone. 3. Type 2 diabetes mellitus without complication, with long-term current use of insulin (HCC) - ICD9: 250.00, V58.67, ICD10: E11.9, Z79.4 - follow labs. 4. Hypertension, essential - ICD9: 401.9, ICD10: I10 - good control - Continue current medication(s) - Goal of BP <130/80 5. JOHNY (obstructive sleep apnea) - ICD9: 327.23, ICD10: G47.33 - declines tx. 6. C. difficile colitis - ICD9: 008.45, ICD10: A04.72 - finish meds. See gi. - CONSULT TO GASTROENTEROLOGY 7. Gastrointestinal hemorrhage, unspecified gastrointestinal hemorrhage type - ICD9: 578.9, ICD10: K92.2 - PANTOPRAZOLE 40 MG TABLET,DELAYED RELEASE - CBC + DIFF - CONSULT TO GASTROENTEROLOGY Rigoberto Gould MD documented in this encounterWvumedicine Harrison [facility] Hospital09-13-2022 Miscellaneous Notes* Telephone Encounter - Farrah Hastings RN - 05/09/2022 10:36 AM EDT Rozina Sheth [facility] calls to report that patient was transferred to [facility]. Farrah Hastings RN * Telephone Encounter - Bryce Landin RN - 04/25/2022 10:48 AM EDT Rozina Sheth from [facility] called in and wanted to let provider know that Pt went into [facility] on Sunday for a fractured femur. He is was unable to have surgery done at this time because he had a GI bleed. They have fixed that now just have to wait for his counts to come up before they can complete the surgery. She reports she will call and let providers office know when Pt comes home. documented in this encounterWvumedicine Harrison Community Hospital09-12-2022 [facility] 05-07-2022 [facility]09-10-2022 [facility]09-09-2022 [facility]09-09-2022 [facility]09-08-2022 [facility]09-08-2022 [facility]09-08-2022 NoteHNO ID: [id number] Author: Esther Heart RN Service: Nursing Author Type: Registered Nurse Type: Progress Notes Filed: 05/04/2022 10:21 AM Note Text: Pt is resting in bed at this time no complaints noted. Call light in reach. 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 Allen Chronic kidney disease, stage IV (severe) 201812/02/2021 Sprain of ligament of cervical spine region 03/2812/02/2021 Overview: 03/21/19 jerk head while mowing the yard when he hit a branch. C-spine demonstrated a C4 cortical step-off, MRI demonstrated no fracture but positive findings for dorsal ligament injuries C2/3 through C7-T1 without evidence of hematoma or cord contusion. Transition of care performed with sharing of clinical summary 04/08/2019 04/18/2019 Overview: Admit [facility] 03/21/19-03/22/19 Discharge diagnoses chronic kidney disease with worsening creatinine, acute kidney injury Hypokalemia Toxic encephalopathy secondary to Flexeril overusage Type 2 diabetes Ischemic cardiomyopathy Coronary artery disease Ligamental cervical neck strain and acute Pulmonary hypertension Hypertension Pyuria Preadmit: to [facility] ED with slurred speech, lethargy. Malnutrition of moderate degree 04/01/2019 12/02/2021 Delirium 03/29/2019 12/02/2021 Altered mental status 03/24/2019 07/05/2019 UTI (urinary tract infection) 03/24/2019 Hyperkalemia 03/24/2019 12/02/2021 Hypoxia 03/24/2019 12/02/2021 Hypoalbuminemia 03/24/2019 12/02/2021 GARRET (acute kidney injury) 03/24/20192021 CKD (chronic kidney disease) stage 3, GFR 30-59 ml/min 03/24/2019 04/18/2019 High phosphate levels 03/24/2019 12/02/2021 Hyponatremia 03/24/2019 12/02/2021 Recurrent right pleural effusion 07/14/2018 12/02/2021 Anemia of chronic renal failure, stage 3 (modera te) 03/05/2018 12/02/2021 Chronic left hip pain 03/04/2018 10/30/2022 Lower leg edema 01/22/2018 12/02/2021 Overview: 01/15/18 negative venous dopplar Chronic constipation 03/21/2016 12/02/2021 documented as of this encounter (statuses as of 10/30/2022) [facility]09-04-[facility] History of Past illness Narrative* Problem Noted Date Resolved Date UGIB (upper gastrointestinal bleed) 04/30/2022 10/30/2022 Encounter for support and coordination of transi tion of care 10/06/2020 12/02/2021 Flaccid neuropathic bladder, 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 Allen Chronic kidney disease, stage IV (severe) 201812/02/2021 Sprain of ligament of cervical spine region 03/2812/02/2021 Overview: 03/21/19 jerk head while mowing the yard when he hit a branch. C-spine demonstrated a C4 cortical step-off, MRI demonstrated no fracture but positive findings for dorsal ligament injuries C2/3 through C7-T1 without evidence of hematoma or cord contusion. Transition of care performed with sharing of clinical summary 04/08/2019 04/18/2019 Overview: Admit [facility] 03/21/19-03/22/19 Discharge diagnoses chronic kidney disease with worsening creatinine, acute kidney injury Hypokalemia Toxic encephalopathy secondary to Flexeril overusage Type 2 diabetes Ischemic cardiomyopathy Coronary artery disease Ligamental cervical neck strain and acute Pulmonary hypertension Hypertension Pyuria Preadmit: to [facility] ED with slurred speech, lethargy. Malnutrition of moderate degree 04/01/2019 12/02/2021 Delirium 03/29/2019 12/02/2021 Altered mental status 03/24/2019 07/05/2019 UTI (urinary tract infection) 03/24/2019 Hyperkalemia 03/24/2019 12/02/2021 Hypoxia 03/24/2019 12/02/2021 Hypoalbuminemia 03/24/2019 12/02/2021 GARRET (acute kidney injury) 03/24/20192021 CKD (chronic kidney disease) stage 3, GFR 30-59 ml/min 03/24/2019 04/18/2019 High phosphate levels 03/24/2019 12/02/2021 Hyponatremia 03/24/2019 12/02/2021 Recurrent right pleural effusion 07/14/2018 12/02/2021 Anemia of chronic renal failure, stage 3 (modera te) 03/05/2018 12/02/2021 Chronic left hip pain 03/04/2018 10/30/2022 Lower leg edema 01/22/2018 12/02/2021 Overview: 01/15/18 negative venous dopplar Chronic constipation 03/21/2016 12/02/2021 documented as of this encounter (statuses as of 01/05/2023) [facility] History of Past illness Narrative* Problem Noted Date Diagnosed Date Resolved Date UGIB (upper gastrointestinal bleed) 04/30/2022 10/30/2022 Encounter for support and co ordination of transition of care 10/06/2020 12/02/2021 Flaccid neuropathic bladder, not elsewhere classified 06/04/2020 12/02/2021 Overview: 06/01/2020 Dr. Allen Chronic kidney disease, stage IV (severe) 04/18/2019 12/02/2021 Sprain of ligament of cervical spine region 04/18/2019 12/02/2021 Overview: 03/21/19 jerk head while mowing the yard when he hit a branch. C-spine demonstrated a C4 cortical step-off, MRI demonstrated no fracture but positive findings for dorsal ligament injuries C2/3 through C7-T1 without evidence of hematoma or cord contusion. Transition of care performed with sharing of clinical summary 04/08/2019 04/18/2019 Overview: Admit [facility] 03/21/19-03/22/19 Discharge diagnoses chronic kidney disease with worsening creatinine, acute kidney injury Hypokalemia Toxic encephalopathy secondary to Flexeril overusage Type 2 diabetes Ischemic cardiomyopathy Coronary artery disease Ligamental cervical neck strain and acute Pulmonary hypertension Hypertension Pyuria Preadmit: to [facility] ED with slurred speech, lethargy. Malnutrition of moderate degree 04/01/2019 12/02/2021 Delirium 03/29/2019 12/02/2021 Altered mental status 03/24/20192018 UTI (urinary tract infection) 03/24/2019 12/02/2021 Hyperkalemia 03/24/2019 12/02/2021 Hypoxia 03/24/2019 12/02/2021 Hypoalbuminemia 03/24/2019 12/02/2021 GARRET (acute kidney injury) 03/24/2019 CKD (chronic kidney disease) stage 3, GFR 30-59 ml/min 03/24/2019 04/18/2019 High phosphate levels 03/24/20192021 Hyponatremia 03/24/2019 12/02/2021 Recurrent right pleural effusion 07/14/2018 12/02/2021 Anemia of chronic renal fail ure, stage 3 (moderate) 03/05/2018 12/02/2021 Chronic left hip pain 03/04/20182022 Lower leg edema 01/22/2018 12/02/2021 Overview: 01/15/18 negative venous dopplar Chronic constipation 03/21/2016 022 documented as of this encounter (statuses as of 05/18/2023) [facility]09-04-2022 History of Past illness Narrative* Problem Noted Date Diagnosed Date Resolved Date UGIB (upper gastrointestinal bleed) 04/30/2022 10/30/2022 Encounter for support and co ordination of transition of care 10/06/2020 12/02/2021 Flaccid neuropathic bladder, not elsewhere classified 06/04/2020 12/02/2021 Overview: 06/01/2020 Dr. Allen Chronic kidney disease, stage IV (severe) 04/18/2019 12/02/2021 Sprain of ligament of cervical spine region 04/18/2019 12/02/2021 Overview: 03/21/19 jerk head while mowing the yard when he hit a branch. C-spine demonstrated a C4 cortical step-off, MRI demonstrated no fracture but positive findings for dorsal ligament injuries C2/3 through C7-T1 without evidence of hematoma or cord contusion. Transition of care performed with sharing of clinical summary 04/08/2019 04/18/2019 Overview: Admit [facility] 03/21/19-03/22/19 Discharge diagnoses chronic kidney disease with worsening creatinine, acute kidney injury Hypokalemia Toxic encephalopathy secondary to Flexeril overusage Type 2 diabetes Ischemic cardiomyopathy Coronary artery disease Ligamental cervical neck strain and acute Pulmonary hypertension Hypertension Pyuria Preadmit: to [facility] ED with slurred speech, lethargy. Malnutrition of moderate degree 04/01/2019 12/02/2021 Delirium 03/29/2019 12/02/2021 Altered mental status 03/24/20192018 UTI (urinary tract infection) 03/24/2019 12/02/2021 Hyperkalemia 03/24/2019 12/02/2021 Hypoxia 03/24/2019 12/02/2021 Hypoalbuminemia 03/24/2019 12/02/2021 GARRET (acute kidney injury) 03/24/2019 CKD (chronic kidney disease) stage 3, GFR 30-59 ml/min 03/24/2019 04/18/2019 High phosphate levels 03/24/20192021 Hyponatremia 03/24/2019 12/02/2021 Recurrent right pleural effusion 07/14/2018 12/02/2021 Anemia of chronic renal fail ure, stage 3 (moderate) (HCC) 03/05/2018 12/02/2021 Chronic left hip pain 03/04/20182022 Lower leg edema 01/22/2018 12/02/2021 Overview: 01/15/18 negative venous dopplar Chronic constipation 03/21/2016 022 documented as of this encounter (statuses as of 11/08/2023) [facility]09-04-2022 History of Past illness Narrative* Problem Noted Date Diagnosed Date Resolved Date UGIB (upper gastrointestinal bleed) 04/30/2022 10/30/2022 Encounter for support and co ordination of transition of care 10/06/2020 12/02/2021 Flaccid neuropathic bladder, not elsewhere classified 06/04/2020 12/02/2021 Overview: 06/01/2020 Dr. Allen Chronic kidney disease, stage IV (severe) 04/18/2019 12/02/2021 Sprain of ligament of cervical spine region 04/18/2019 12/02/2021 Overview: 03/21/19 jerk head while mowing the yard when he hit a branch. C-spine demonstrated a C4 cortical step-off, MRI demonstrated no fracture but positive findings for dorsal ligament injuries C2/3 through C7-T1 without evidence of hematoma or cord contusion. Transition of care performed with sharing of clinical summary 04/08/2019 04/18/2019 Overview: Admit [facility] 03/21/19-03/22/19 Discharge diagnoses chronic kidney disease with worsening creatinine, acute kidney injury Hypokalemia Toxic encephalopathy secondary to Flexeril overusage Type 2 diabetes Ischemic cardiomyopathy Coronary artery disease Ligamental cervical neck strain and acute Pulmonary hypertension Hypertension Pyuria Preadmit: to [facility] ED with slurred speech, lethargy. Malnutrition of moderate degree 04/01/2019 12/02/2021 Delirium 03/29/2019 12/02/2021 Altered mental status 03/24/20192018 UTI (urinary tract infection) 03/24/2019 12/02/2021 Hyperkalemia 03/24/2019 12/02/2021 Hypoxia 03/24/2019 12/02/2021 Hypoalbuminemia 03/24/2019 12/02/2021 GARRET (acute kidney injury) 03/24/2019 CKD (chronic kidney disease) stage 3, GFR 30-59 ml/min 03/24/2019 04/18/2019 High phosphate levels 03/24/20192021 Hyponatremia 03/24/2019 12/02/2021 Recurrent right pleural effusion 07/14/2018 12/02/2021 Anemia of chronic renal fail ure, stage 3 (moderate) (HCC) 03/05/2018 12/02/2021 Chronic left hip pain 03/04/20182022 Lower leg edema 01/22/2018 12/02/2021 Overview: 01/15/18 negative venous dopplar Chronic constipation 03/21/2016 022 documented as of this encounter (statuses as of 12/11/2023) [facility]09-04-2022 [facility]09-04-2022 [facility]-04[facility]2022 [facility]-03-2022 [facility] 04-29-2022 [facility]02[facility]01[facility]2022 [facility]01[facility]2022 [facility]-31-2022 [facility]22 [facility] 04-26-2022 [facility]-30-2022 [facility]08-16-2022 Miscellaneous Notes* Telephone Encounter - Oralia Na - 04/11/2022 4:09 PM EDT ----- Message from Rigoberto Gould MD sent at 04/10/2022 4:53 PM EDT ----- Undergoes dialysis. 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 [facility] Miscellaneous Notes* Telephone Encounter - Florina Gale Ma - 03/30/2022 3:47 PM EDT Patient was notified Florina Gale Ma * Telephone Encounter - Rigoberto Gould MD - 03/30/2022 3:35 PM EDT Orders placed in November and were cancelled. Put back in again. * Telephone Encounter - Teresa Conroy RN - 03/30/2022 3:26 PM EDT Patient's calling and asking if lab orders can be placed as stated during last OV with Dr. Gould on 12/02/21. (LIPID PANEL and HGB A1C), and any others recommended. Please call patient once lab orders have been placed. Thank you. documented [facility] History of Present illness Narrative* Jensen Osei RN - 03/06/2022 12:30 PM EDT Nurse Note: Review of Systems Constitutional: Negative for appetite change, chills, fatigue, fever and unexpected weight change. HENT: Positive for congestion and hearing loss. Negative for ear discharge, ear pain, nosebleeds, sinus pressure, sinus pain, sore throat, tinnitus and trouble swallowing. Eyes: Negative for photophobia, pain and discharge. Respiratory: Negative for cough, chest tightness and shortness of breath. Cardiovascular: Positive for leg swelling. Negative for chest pain and palpitations. Gastrointestinal: Negative for abdominal distention, abdominal pain, blood in stool, constipation, diarrhea, nausea and vomiting. Genitourinary: Positive for decreased urine volume. Negative for difficulty urinating, flank pain, hematuria, scrotal swelling and testicular pain. Musculoskeletal: Positive for back pain and joint swelling. Skin: Negative for rash and wound. Allergic/Immunologic: Negative for environmental allergies and food allergies. Neurological: Negative for dizziness, tremors, seizures, syncope, light- headedness and headaches. Hematological: Bruises/bleeds easily. Psychiatric/Behavioral: Negative for sleep disturbance. The patient is not nervous/anxious. Nursing Assessment: Physical Exam Patient and support person provided with link to review education video prior to evaluation appointment. Patient and support person both asked to review the rodriguez points of the education video and given the opportunity to ask questions. No barriers to learning for patient or support person. Patient asked to fill out all electronic and paper forms to completion. Educational video covering: *Indications and contraindications for kidney transplant *Alternative treatments *Risks and benefits of transplant *Kidney allocation system *What to do while on the waitlist *Being called in for transplant *Surgical process and post-transplant follow up *Facts about living donation and donor exchange *Immunosuppression and post clinic and lab schedule *One year survival data from Scientific Registry for Transplant Specific *Donor disease transmission risk factors *Living donor risks and complications * Samra Smith MD - 03/06/2022 12:30 PM EDT Pre-Tx Evaluation Kidney 03/06/2022 Mauri Stacie [phone] Chief Complaint: Chief Complaint Patient presents with Kidney Recipient Evaluation HPI: I saw Mauri Stacie in our pre transplant office for a pre-renal transplant visit. The patient has a diagnosis of DM and has been on dialysis for approximately 12 months. Past Medical History: Diagnosis Date Ankylosing spondylitis ASHD (arteriosclerotic heart disease) BPH (benign prostatic hyperplasia) Cardiomyopathy CHF (congestive heart failure) DM type 2 (diabetes mellitus, type 2) ESRD on dialysis Flaccid neuropathic bladder, not elsewhere classified Gout Hypercholesterolemia Ischemic cardiomyopathy Neuropathy NSTEMI (non-ST elevated myocardial infarction) Pulmonary hypertension PVD (peripheral vascular disease) Retinopathy Valvular heart disease Ventricular tachyarrhythmia Past Surgical History: Procedure Laterality Date HIP REPLACEMENT Right 2018 CORONARY ARTERY BYPASS GRAFT 2017 CARTY to LAD, SVG to PDA, SVG to OM INSERTION CVC TUNNELED KNEE REPLACEMENT Social History Social History Socioeconomic History Marital status: Spouse name: Not on file Number of children: Not on file Years of education: Not on file Highest education level: Not on file Occupational History Not on file Tobacco Use Smoking status: Not on file Smokeless tobacco: Not on file Substance and Sexual Activity Alcohol use: Not on file Drug use: Not on file Sexual activity: Not on file Other Topics Concern Not on file Social History Narrative Not on file Social Determinants of Health Financial Resource Strain: Not on file Food Insecurity: Not on file Transportation Needs: Not on file Physical Activity: Not on file Stress: Not on file Social Connections: Not on file Intimate Partner Violence: Not on file Housing Stability: Not on file No family history on file. Family History: No family history on file. Medications: No current outpatient medications on file. No current facility-administered medications for this visit. Allergies: Lyrica [pregabalin] Review of Systems: Nurse Note: Review of Systems Constitutional: Negative for appetite change, chills, fatigue, fever and unexpected weight change. HENT: Positive for congestion and hearing loss. Negative for ear discharge, ear pain, nosebleeds, sinus pressure, sinus pain, sore throat, tinnitus and trouble swallowing. Eyes: Negative for photophobia, pain and discharge. Respiratory: Negative for cough, chest tightness and shortness of breath. Cardiovascular: Positive for leg swelling. Negative for chest pain and palpitations. Gastrointestinal: Negative for abdominal distention, abdominal pain, blood in stool, constipation, diarrhea, nausea and vomiting. Genitourinary: Positive for decreased urine volume. Negative for difficulty urinating, flank pain, hematuria, scrotal swelling and testicular pain. Musculoskeletal: Positive for back pain and joint swelling. Skin: Negative for rash and wound. Allergic/Immunologic: Negative for environmental allergies and food allergies. Neurological: Negative for dizziness, tremors, seizures, syncope, light- headedness and headaches. Hematological: Bruises/bleeds easily. Psychiatric/Behavioral: Negative for sleep disturbance. The patient is not nervous/anxious. Nursing Assessment: Physical Exam Physical Exam Vital Signs: BP 143/72 (BP Location: Right arm, BP Position: Sitting) Pulse 62 Temp 98 F (36.7 C) (Temporal) Wt 80.7 kg (178 lb) There is no height or weight on file to calculate BMI. General: Well-developed, well-nourished. No acute distress HEENT: Atraumatic, normocephalic, extra ocular muscles intact. No scleral icterus. Oropharynx is clear without mucosal lesions (ulcers), No scalp or ear lesions. Neck: without masses Heart: regular rate and rhythm Lungs: Clear Abdomen: Soft, non-tender, non-distended, positive bowel sounds. No pain, femoral pulses present Skin: no lesions Lymph: no adenopathy Neuro: Alert and oriented to person, place and time; Motor and sensory grossly intact, Ambulation normal Extremities: Upper and Lower extremities non-tender, no peripheral edema, femoral pulses present. Assessment Mauri Quinones is a 66 y.o. male who presents to the [facility] pre-transplant clinic for evaluation forrenal Transplant With a diagnosis of DM Plan: CT report indicated severe calcifications. We do not have the films currently but obtain them. Thismay well preclude candidacy and this was explained to patient and spouse who understand. Will review films when we obtain them and let the patient know our decision I have reviewed extensively his medical and surgical problems and had a detailed discussion with the patient. All his questions were answered. Problem list: There is no problem list on file for this patient. [facility] Instructions* Patient Instructions* Jensen Osei RN - 03/06/2022 11:54 AM EDT You were seen today for your transplant evaluation by Dr. Smith and your coordinator Jensen Osei. Labs were drawn and order for chest x-ray given. You understanding all testing is needed as part of transplant evaluation and may be discussed with the transplant team. For your chest x-ray today, please take the elevator to the second floor, turn right down the hallway and go through the double doors. Radiology will be on the left side. Once that is complete your appointment today is finished. Please contact your coordinator QUYEN Riojas, RN at [phone] if you have any additional questions. [facility] fax number [phone] Next Steps: During your evaluation, orders for the following diagnostic testing were placed as part of your pre-kidney transplant evaluation work-up. You are responsible to schedule these tests on dates and times that work best with your schedule. You may schedule these tests by calling [facility] (P: [phone]). We will request images from your recent CT scan first if acceptable orders may be placed for the following Cardiac Stress Test Echocardiogram You will need to schedule an appointment with one of our transplant social workers, please keep in mind you will need your support person with you for that appointment. Additional Testing: As was mentioned during Transplant Education, the following tests need to be completed and kept current prior to your transplant. Please work with your Primary Care Provider (PCP) to schedule these tests when appropriate and contact your Weather Algorithm Scientist upon completion. Colonoscopy: This can be scheduled through your PCP, or, if you choose, you may schedule through [facility] by calling (P: [phone]); Dental: Please schedule this through your dental care provider; Please Note: All required diagnostic testing, as well as any additional follow- up (referrals, consultations, etc) must be completed prior to your candidacy as a potential kidney transplant recipient being presented to the Patient Selection Committee. Once the recommended testing has been completed, your Weather Algorithm Scientist will contact you regarding a potential date that your candidacy will be presented to the Patient Selection Committee. A final determination of candidacy will be made by our Patient Selection Committee. Living Kidney Donor Information: Before you begin talking about your need for a kidney, you should be informed about the Living Kidney Donor process, including the application, privacy and testing. If you or your Living Donor Applicant have questions, please do not hesitate to call and speak directly with the Living Kidney Donor Coordinators (P: [phone]; P: [phone]) or email them at: [email or web address] documented in this encounterUniversity [facility]06-27-[facility] History of Present illness Narrative* Heather Hernandez - 02/20/2022 10:01 AM EDT POPULATION HEALTH NAVIGATION OUTREACH Action/FYI pls schedule Pt identified by name and : YES, via phone Outreach Outcome/Action Unable to reach patient: Left message Did you use a PCP flex slot to schedule this appointment? No Reason for Outreach Care Gap or Scheduling/Wellness visits Payer: Payor: [employer] / Plan: [employer] / Product Type: Medicare / Care Gap Reviewed:: COPD/CKD/PCP Reminder: Reminder note to check Health Maintenance for items below Health Maintenance items due: HEPATITIS A(1 of 2 - Risk 2-dose series) Never done PNEUMOCOCCAL(1 - PCV) Never done HIV SCREENING Never done SHINGRIX VACCINE(1 of 2) Never done COLORECTAL CANCER SCREENING due on 02/22/2019 HBA1C due on 11/30/2020 LDL CHOLESTEROL due on 06/01/2021 SERUM CREATININE due on 06/01/2021 DILATED RETINAL EXAM due on 07/01/2021 COVID-19 VACCINE(4 - Booster for Moderna series) due on 09/30/2021 DEPRESSION SCREENING due on 10/08/2021 PROSTATE CANCER SCREENING DISCUSSION due on 03/01/2022 Message Sent to Practice: No Navigation Signature: Heather Hernandez February 20, 2022 10:01 AM documented in this encounterW[facility]04-08-2022 History of Present illness Narrative* Rigoberto Gould MD - 12/02/2021 1:19 PM EDT Patient presents with: Discussion: discontinuing oxygen HPI: Patient presents today for office visit for above. Has not been seen in office since virtual visit nearly 14 months ago. Was seen by Albert Davis via virtual visit. Was in [facility] at that time for chf and worsening renal disease. Was apparently placed on oxygen at discharge and has not used it in over a year. He went in for a dialysis catheter. Was initially hypoxic on getting out of bed in the hospital. Has used it just a few times on arrival home. Has a home pulse ox at home and also gets checked at dialysis. He is usually mid 90's It is just collecting dust. No shortness of breath No cough No edema. Doing dialysis three times a week. Dr. Jackson managing. He has not had an a1c ordered. He does check his sugars periodically They have been good. Follows with optho Seeing Dr. Chacon Just was at their office last week. Has not been back to ortho. Hip is overall ok. No current bowel issues. MEDICATIONS: Current Outpatient Medications Medication Sig B Complex-Vitamin C-Folic Acid (NEPHRO-SAVANAH) 0.8 mg tab Take 1 tablet by mouth. loratadine (CLARITIN) 10 mg tablet Take 1 tablet by mouth once daily. bumetanide (BUMEX) 2 mg tablet Take 2 mg by mouth once daily. finasteride (PROSCAR) 5 mg tablet Take 5 mg by mouth once daily. sildenafil (VIAGRA) 25 mg tablet Take 25 mg by mouth as needed (Noted on patient's paper taking 20mg tablet, 3 tablets as needed). melatonin 5 mg tablet Take 5 mg by mouth at bedtime as needed for for insomnia. metOLazone (ZAROXOLYN) 5 mg tablet Take 2.5 mg by mouth once daily as needed. hydrALAZINE (APRESOLINE) 50 mg tablet Twice daily: 50 mg dose if blood pressure less than 150/90, 100 mg dose of blood pressure greater than 150/90 Dr. Mujica (nephro) (Patient taking differently: Take 25 mg by mouth once daily as needed. As of 04/18/2021 taking as follows:--25 mg one tablet when needed Twice daily: 50 mg dose if blood pressure less than 150/90, 100 mg dose of blood pressure greater than 150/90 Dr. Mujica (nephro) ) insulin detemir U-100 (LEVEMIR FLEXTOUCH U-100 INSULN) 100 unit/mL (3 mL) injection pen Inject 15 Units subcutaneously daily at bedtime. atorvastatin (LIPITOR) 40 mg tablet Take 40 mg by mouth once daily. doxazosin (CARDURA) 4 mg tablet Take 0.5 tablets by mouth twice daily. carvedilol (COREG) 25 mg tablet Take 12.5 mg by mouth twice daily with meals. aspirin, enteric coated (ASPIR-81) 81 mg EC tablet Take 1 tablet by mouth once daily. latanoprost (XALATAN) 0.005 % ophthalmic solution Use 1 Drop in both eyes daily at bedtime. into affected eye(s). pioglitazone (ACTOS) 15 mg tablet Take 1 tablet by mouth once daily. ferrous sulfate 325 mg (65 mg iron) tablet Take 1 tablet by mouth twice daily with meals. Tadalafil (CIALIS) 20 mg tab(s) Take 20 mg by mouth once daily. (Patient not taking: Reported on 04/18/2021 ) torsemide (DEMADEX) 20 mg tablet Take 20 mg by mouth twice daily. insulin lispro (HUMALOG KWIKPEN) 100 unit/mL inpn Inject 6 Units subcutaneously w MEALS. flash glucose scanning reader (FredioSTYLE SERGEI 14 DAY READER) misc 1 Each four times daily. flash glucose sensor (FREESTYLE SERGEI 14 DAY SENSOR) kit 1 Each four times daily. acetaminophen (TYLENOL EX STR RAPID RELEASE ORAL) Take 1-2 capsules by mouth every 6 hours as needed (pain). MULTIVITAMIN/IRON/FOLIC ACID (DAILY MULTI ORAL) Take 2 Each by mouth once daily. No current facility-administered medications for this visit. ALLERGIES: ALLERGIES Allergen Reactions Lyrica [Pregabalin] Swelling PAST MEDICAL HISTORY Diagnosis Date Acute on chronic diastolic congestive heart failure ([facility]) 07/14/2018 GARRET (acute kidney injury) ([facility]) 03/24/2019 GARRET (acute kidney injury) ([facility]) 03/24/2019 Ankylosing spondylitis ([facility]) CAD (coronary artery disease) Cellulitis Chronic combined systolic and diastolic CHF (congestive heart failure) ([facility]) 03/24/2019 CKD (chronic kidney disease) stage 3, GFR 30-59 ml/min ([facility]) 03/24/2019 Constipation Diabetes ([facility]) Gout High phosphate levels 03/24/2019 History of coronary artery bypass graft 04/18/2019 04/10/17 CARTY to LAD, SVG to PDA, SVG to OM Hx of fracture multiple bones Hyperkalemia 03/24/2019 Hypoalbuminemia 03/24/2019 Hyponatremia 03/24/2019 Hypoxia 03/24/2019 Ischemic cardiomyopathy 04/18/2019 Echocardiogram 01/10/19 Dr. Nunez: Dilated left ventricle, left ventricular ejection fraction 40%, mild to moderate systolic dysfunction, moderate concentric LVH, dilated left and right atria. Mild mitral valve thickening with papillary muscle dysfunction, mild mitral valve insufficiency, tricuspid valve insufficiency, aortic valve insufficiency, pulmonic valve insufficiency. Aortic valve calcifi NSTEMI (non-ST elevated myocardial infarction) (HCC) 03/12/2017 [facility] admit Osteoarthritis Transition of care performed with sharing of clinical summary 04/08/2019 Admit [facility] 03/21/19 03/22/19 Discharge diagnoses chronic kidney disease with worsening creatinine, acute kidney injury Hypokalemia Toxic encephalopathy secondary to Flexeril overusage Type 2 diabetes Ischemic cardiomyopathy Coronary artery disease Ligamental cervical neck strain and acute Pulmonary hypertension Hypertension Pyuria Preadmit: to [facility] ED with slurred speech, lethargy. PAST SURGICAL HISTORY Procedure Laterality Date ARTHRP ACETBLR/PROX FEM PROSTC AGRFT/ALGRFT Right CORONARY ARTERY BYPASS GRAFT 04/12/2017 x 3 HIP SURGERY HX Right pin KNEE ARTHROSCOPY Left x2 KNEE SURGERY HX Right TKR, right, arthoscopy x3 PAST SURGICAL HISTORY OF 09/07/2017 08/15/17 fx radius in 2 places; plate and screws.Plate and screws 09/07/17 [facility] TOE SURGERY HX Right FAMILY HISTORY Problem Relation Age of Onset Arthritis Mother Coronary Artery Disease Mother Diabetes Mother Heart Mother Hypertension Mother Alcohol/Drug Father Arthritis Father Heart Father Hypertension Father Social History Tobacco Use Smoking status: Never Smoker Smokeless tobacco: Former User Types: Chew Substance Use Topics Alcohol use: No Comment: seldom Drug use: No Reviewed current medications, allergies, past medical history, surgical history, family history andsocial history today. REVIEW OF SYSTEMS GI: Negative for change in bowel habit All other reviewed and negative other than HPI. HEALTH MAINTENANCE: Reviewed health maintenance issues today and recommended the following in detail. HIV SCREENING Never done TWO PNEUMOVAX 5 YEARS APART PRIOR TO AGE 67(1) he thinks may have been done. ADULT PREVNAR-13- he thinks he may have been done. COLORECTAL CANCER SCREENING -decline HBA1C due on 11/30/2020 DIABETIC FOOT EXAM-just done at dialysis. VITALS: BP 124/72 Pulse 66 Wt 82.1 kg (181 lb) SpO2 93% BMI 25.97 kg/m Last 4 Encounter Wt Readings: Date: Wt: 12/02/2021 82.1 kg (181 lb) 04/18/2021 83.6 kg (184 lb 6.4 oz) 04/18/2021 83.6 kg (184 lb 6.4 oz) 01/31/2021 81.8 kg (180 lb 6.4 oz) PHYSICAL EXAMINATION: General appearance: Well appearing, alert, [...] Musculoskeletal: No joint swelling, deformity, or tenderness Fistula has normal thrill. ASSESSMENT/PLAN: 1. Arteriosclerotic heart disease (ASHD) - ICD9: 414.00, ICD10: I25.10 (primary diagnosis) - continue to follow progress. - LIPID PANEL BASIC 2. 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 Hypertension, essential - ICD9: 401.9, ICD10: I10 - good control - Continue current medication(s) - Goal of BP <130/80 4. Acute on chronic diastolic congestive heart failure (HCC) - ICD9: 428.33, 428.0, ICD10: I50.33 - doing well. 5. Ischemic cardiomyopathy - ICD9: 414.8, ICD10: I25.5 - per cardiology 6. History of coronary artery bypass graft - ICD9: V45.81, ICD10: Z95.1 - no changes. 7. Anemia of chronic renal failure, stage 3 (moderate), unspecified whether stage 3a or 3b CKD ([facility]) - ICD9: 285.21, 585.3, ICD10: N18.30, D63.1 - per nephro 8. Chronic kidney disease, stage IV (severe) ([facility]) - ICD9: 585.4, ICD10: N18.4 9. 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 Rigoberto Gould RTO in six month and prn. Medical Decision Making documented in this [facility] Miscellaneous Notes* Telephone Encounter - Rebecca Moe LPN - 11/14/2021 9:54 AM EDT Patient calling wants his oxygen discontinued has not been suing it in over a year. He said he called [employer] they need an order. Patient gave phone to his , Yun, she said he has not used the oxygen only very few times since he has had it. He had overnight oximeter done several months ago, andstill does not wear the oxygen. He has not been seen in over a year in office. Scheduled appt with Dr Gould, per request of for 12/02/2021. Asking for lab work orders, gets labs done every month atdialysis but diabetic things have not been checked for some time.Pending orders if wanted, needs diagnosis. Please notify what labs need done. Please advise documented in this encounterW[facility]-10[facility] History of Past illness Narrative* Problem Noted Date Resolved Date Encounter for support and coordination of transi tion of care 10/06/2020 12/02/2021 Flaccid neuropathic bladder, 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 Allen Chronic kidney disease, stage IV (severe) 201812/02/2021 Sprain of ligament of cervical spine region 03/2812/02/2021 Overview: 03/21/19 jerk head while mowing the yard when he hit a branch. C-spine demonstrated a C4 cortical step-off, MRI demonstrated no fracture but positive findings for dorsal ligament injuries C2/3 through C7-T1 without evidence of hematoma or cord contusion. Transition of care performed with sharing of clinical summary 04/08/2019 04/18/2019 Overview: Admit [facility] 03/21/19 03/22/19 Discharge diagnoses chronic kidney disease with worsening creatinine, acute kidney injury Hypokalemia Toxic encephalopathy secondary to Flexeril overusage Type 2 diabetes Ischemic cardiomyopathy Coronary artery disease Ligamental cervical neck strain and acute Pulmonary hypertension Hypertension Pyuria Preadmit: to [facility] ED with slurred speech, lethargy. Malnutrition of moderate degree 04/01/2019 12/02/2021 Delirium 03/29/2019 12/02/2021 Altered mental status 03/24/2019 07/05/2019 UTI (urinary tract infection) 03/24/2019 Hyperkalemia 03/24/2019 12/02/2021 Hypoxia 03/24/2019 12/02/2021 Hypoalbuminemia 03/24/2019 12/02/2021 GARRET (acute kidney injury) 03/24/20192021 CKD (chronic kidney disease) stage 3, GFR 30-59 ml/min 03/24/2019 04/18/2019 High phosphate levels 03/24/2019 12/02/2021 Hyponatremia 03/24/2019 12/02/2021 Recurrent right pleural effusion 07/14/2018 12/02/2021 Anemia of chronic renal failure, stage 3 (modera te) 03/05/2018 12/02/2021 Lower leg edema 01/22/2018 12/02/2021 Overview: 01/15/18 negative venous dopplar Uncontrolled type 2 diabetes mellitus without complication, with long-term current use of insulin 03/21/2016 12/02/2021 Overview: 09/04/17 glucose 233, BUN 25, creatinine 1.04, normal lytes Chronic constipation 03/21/2016 12/02/2021 documented as of this encounter (statuses as of 12/02/2021) [facility] History of Past illness Narrative* Problem Noted Date Resolved Date Encounter for support and coordination of transi tion of care 10/06/2020 12/02/2021 Flaccid neuropathic bladder, 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 Allen Chronic kidney disease, stage IV (severe) 201812/02/2021 Sprain of ligament of cervical spine region 03/2812/02/2021 Overview: 03/21/19 jerk head while mowing the yard when he hit a branch. C-spine demonstrated a C4 cortical step-off, MRI demonstrated no fracture but positive findings for dorsal ligament injuries C2/3 through C7-T1 without evidence of hematoma or cord contusion. Transition of care performed with sharing of clinical summary 04/08/2019 04/18/2019 Overview: Admit [facility] 03/21/19 03/22/19 Discharge diagnoses chronic kidney disease with worsening creatinine, acute kidney injury Hypokalemia Toxic encephalopathy secondary to Flexeril overusage Type 2 diabetes Ischemic cardiomyopathy Coronary artery disease Ligamental cervical neck strain and acute Pulmonary hypertension Hypertension Pyuria Preadmit: to [facility] ED with slurred speech, lethargy. Malnutrition of moderate degree 04/01/2019 12/02/2021 Delirium 03/29/2019 12/02/2021 Altered mental status 03/24/2019 07/05/2019 UTI (urinary tract infection) 03/24/2019 Hyperkalemia 03/24/2019 12/02/2021 Hypoxia 03/24/2019 12/02/2021 Hypoalbuminemia 03/24/2019 12/02/2021 GARRET (acute kidney injury) 03/24/20192021 CKD (chronic kidney disease) stage 3, GFR 30-59 ml/min 03/24/2019 04/18/2019 High phosphate levels 03/24/2019 12/02/2021 Hyponatremia 03/24/2019 12/02/2021 Recurrent right pleural effusion 07/14/2018 12/02/2021 Anemia of chronic renal failure, stage 3 (modera te) 03/05/2018 12/02/2021 Lower leg edema 01/22/2018 12/02/2021 Overview: 01/15/18 negative venous dopplar Uncontrolled type 2 diabetes mellitus without complication, with long-term current use of insulin 03/21/2016 12/02/2021 Overview: 09/04/17 glucose 233, BUN 25, creatinine 1.04, normal lytes Chronic constipation 03/21/2016 12/02/2021 documented as of this encounter (statuses as of 02/20/2022) [facility] History of Past illness Narrative* Problem Noted Date Resolved Date Encounter for support and coordination of transi tion of care 10/06/2020 12/02/2021 Flaccid neuropathic bladder, 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 Allen Chronic kidney disease, stage IV (severe) 201812/02/2021 Sprain of ligament of cervical spine region 03/2812/02/2021 Overview: 03/21/19 jerk head while mowing the yard when he hit a branch. C-spine demonstrated a C4 cortical step-off, MRI demonstrated no fracture but positive findings for dorsal ligament injuries C2/3 through C7-T1 without evidence of hematoma or cord contusion. Transition of care performed with sharing of clinical summary 04/08/2019 04/18/2019 Overview: Admit [facility] 03/21/19 03/22/19 Discharge diagnoses chronic kidney disease with worsening creatinine, acute kidney injury Hypokalemia Toxic encephalopathy secondary to Flexeril overusage Type 2 diabetes Ischemic cardiomyopathy Coronary artery disease Ligamental cervical neck strain and acute Pulmonary hypertension Hypertension Pyuria Preadmit: to [facility] ED with slurred speech, lethargy. Malnutrition of moderate degree 04/01/2019 12/02/2021 Delirium 03/29/2019 12/02/2021 Altered mental status 03/24/2019 07/05/2019 UTI (urinary tract infection) 03/24/2019 Hyperkalemia 03/24/2019 12/02/2021 Hypoxia 03/24/2019 12/02/2021 Hypoalbuminemia 03/24/2019 12/02/2021 GARRET (acute kidney injury) 03/24/20192021 CKD (chronic kidney disease) stage 3, GFR 30-59 ml/min 03/24/2019 04/18/2019 High phosphate levels 03/24/2019 12/02/2021 Hyponatremia 03/24/2019 12/02/2021 Recurrent right pleural effusion 07/14/2018 12/02/2021 Anemia of chronic renal failure, stage 3 (modera te) 03/05/2018 12/02/2021 Lower leg edema 01/22/2018 12/02/2021 Overview: 01/15/18 negative venous dopplar Uncontrolled type 2 diabetes mellitus without complication, with long-term current use of insulin 03/21/2016 12/02/2021 Overview: 09/04/17 glucose 233, BUN 25, creatinine 1.04, normal lytes Chronic constipation 03/21/2016 12/02/2021 documented as of this encounter (statuses as of 03/30/2022) [facility] History of Past illness Narrative* Problem Noted Date Resolved Date Encounter for support and coordination of transi tion of care 10/06/2020 12/02/2021 Flaccid neuropathic bladder, 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 Allen Chronic kidney disease, stage IV (severe) 201812/02/2021 Sprain of ligament of cervical spine region 03/2812/02/2021 Overview: 03/21/19 jerk head while mowing the yard when he hit a branch. C-spine demonstrated a C4 cortical step-off, MRI demonstrated no fracture but positive findings for dorsal ligament injuries C2/3 through C7-T1 without evidence of hematoma or cord contusion. Transition of care performed with sharing of clinical summary 04/08/2019 04/18/2019 Overview: Admit [facility] 03/21/19-03/22/19 Discharge diagnoses chronic kidney disease with worsening creatinine, acute kidney injury Hypokalemia Toxic encephalopathy secondary to Flexeril overusage Type 2 diabetes Ischemic cardiomyopathy Coronary artery disease Ligamental cervical neck strain and acute Pulmonary hypertension Hypertension Pyuria Preadmit: to [facility] ED with slurred speech, lethargy. Malnutrition of moderate degree 04/01/2019 12/02/2021 Delirium 03/29/2019 12/02/2021 Altered mental status 03/24/2019 07/05/2019 UTI (urinary tract infection) 03/24/2019 Hyperkalemia 03/24/2019 12/02/2021 Hypoxia 03/24/2019 12/02/2021 Hypoalbuminemia 03/24/2019 12/02/2021 GARRET (acute kidney injury) 03/24/20192021 CKD (chronic kidney disease) stage 3, GFR 30-59 ml/min 03/24/2019 04/18/2019 High phosphate levels 03/24/2019 12/02/2021 Hyponatremia 03/24/2019 12/02/2021 Recurrent right pleural effusion 07/14/2018 12/02/2021 Anemia of chronic renal failure, stage 3 (modera te) 03/05/2018 12/02/2021 Lower leg edema 01/22/2018 12/02/2021 Overview: 01/15/18 negative venous dopplar Uncontrolled type 2 diabetes mellitus without complication, with long-term current use of insulin 03/21/2016 12/02/2021 Overview: 09/04/17 glucose 233, BUN 25, creatinine 1.04, normal lytes Chronic constipation 03/21/2016 12/02/2021 documented as of this encounter (statuses as of 06/05/2022) [facility] History of Past illness Narrative* Problem Noted Date Resolved Date Encounter for support and coordination of transi tion of care 10/06/2020 12/02/2021 Flaccid neuropathic bladder, 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 Allen Chronic kidney disease, stage IV (severe) 201812/02/2021 Sprain of ligament of cervical spine region 03/2812/02/2021 Overview: 03/21/19 jerk head while mowing the yard when he hit a branch. C-spine demonstrated a C4 cortical step-off, MRI demonstrated no fracture but positive findings for dorsal ligament injuries C2/3 through C7-T1 without evidence of hematoma or cord contusion. Transition of care performed with sharing of clinical summary 04/08/2019 04/18/2019 Overview: Admit [facility] 03/21/19-03/22/19 Discharge diagnoses chronic kidney disease with worsening creatinine, acute kidney injury Hypokalemia Toxic encephalopathy secondary to Flexeril overusage Type 2 diabetes Ischemic cardiomyopathy Coronary artery disease Ligamental cervical neck strain and acute Pulmonary hypertension Hypertension Pyuria Preadmit: to [facility] ED with slurred speech, lethargy. Malnutrition of moderate degree 04/01/2019 12/02/2021 Delirium 03/29/2019 12/02/2021 Altered mental status 03/24/2019 07/05/2019 UTI (urinary tract infection) 03/24/2019 Hyperkalemia 03/24/2019 12/02/2021 Hypoxia 03/24/2019 12/02/2021 Hypoalbuminemia 03/24/2019 12/02/2021 GARRET (acute kidney injury) 03/24/20192021 CKD (chronic kidney disease) stage 3, GFR 30-59 ml/min 03/24/2019 04/18/2019 High phosphate levels 03/24/2019 12/02/2021 Hyponatremia 03/24/2019 12/02/2021 Recurrent right pleural effusion 07/14/2018 12/02/2021 Anemia of chronic renal failure, stage 3 (modera te) 03/05/2018 12/02/2021 Lower leg edema 01/22/2018 12/02/2021 Overview: 01/15/18 negative venous dopplar Uncontrolled type 2 diabetes mellitus without complication, with long-term current use of insulin 03/21/2016 12/02/2021 Overview: 09/04/17 glucose 233, BUN 25, creatinine 1.04, normal lytes Chronic constipation 03/21/2016 12/02/2021 documented as of this encounter (statuses as of 06/05/2022) [facility] of Past illness Narrative* Problem Noted Date Resolved Date Encounter for support and coordination of transi tion of care 10/06/2020 12/02/2021 Flaccid neuropathic bladder, 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 Allen Chronic kidney disease, stage IV (severe) 201812/02/2021 Sprain of ligament of cervical spine region 03/2812/02/2021 Overview: 03/21/19 jerk head while mowing the yard when he hit a branch. C-spine demonstrated a C4 cortical step-off, MRI demonstrated no fracture but positive findings for dorsal ligament injuries C2/3 through C7-T1 without evidence of hematoma or cord contusion. Transition of care performed with sharing of clinical summary 04/08/2019 04/18/2019 Overview: Admit [facility] 03/21/19-03/22/19 Discharge diagnoses chronic kidney disease with worsening creatinine, acute kidney injury Hypokalemia Toxic encephalopathy secondary to Flexeril overusage Type 2 diabetes Ischemic cardiomyopathy Coronary artery disease Ligamental cervical neck strain and acute Pulmonary hypertension Hypertension Pyuria Preadmit: to [facility] ED with slurred speech, lethargy. Malnutrition of moderate degree 04/01/2019 12/02/2021 Delirium 03/29/2019 12/02/2021 Altered mental status 03/24/2019 07/05/2019 UTI (urinary tract infection) 03/24/2019 Hyperkalemia 03/24/2019 12/02/2021 Hypoxia 03/24/2019 12/02/2021 Hypoalbuminemia 03/24/2019 12/02/2021 GARRET (acute kidney injury) 03/24/20192021 CKD (chronic kidney disease) stage 3, GFR 30-59 ml/min 03/24/2019 04/18/2019 High phosphate levels 03/24/2019 12/02/2021 Hyponatremia 03/24/2019 12/02/2021 Recurrent right pleural effusion 07/14/2018 12/02/2021 Anemia of chronic renal failure, stage 3 (modera te) 03/05/2018 12/02/2021 Lower leg edema 01/22/2018 12/02/2021 Overview: 01/15/18 negative venous dopplar Uncontrolled type 2 diabetes mellitus without complication, with long-term current use of insulin 03/21/2016 12/02/2021 Overview: 09/04/17 glucose 233, BUN 25, creatinine 1.04, normal lytes Chronic constipation 03/21/2016 12/02/2021 documented as of this encounter (statuses as of 06/16/2022) [facility] of Past illness Narrative* Problem Noted Date Resolved Date Encounter for support and coordination of transi tion of care 10/06/2020 12/02/2021 Flaccid neuropathic bladder, 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 Allen Chronic kidney disease, stage IV (severe) 201812/02/2021 Sprain of ligament of cervical spine region 03/2812/02/2021 Overview: 03/21/19 jerk head while mowing the yard when he hit a branch. C-spine demonstrated a C4 cortical step-off, MRI demonstrated no fracture but positive findings for dorsal ligament injuries C2/3 through C7-T1 without evidence of hematoma or cord contusion. Transition of care performed with sharing of clinical summary 04/08/2019 04/18/2019 Overview: Admit [facility] 03/21/19-03/22/19 Discharge diagnoses chronic kidney disease with worsening creatinine, acute kidney injury Hypokalemia Toxic encephalopathy secondary to Flexeril overusage Type 2 diabetes Ischemic cardiomyopathy Coronary artery disease Ligamental cervical neck strain and acute Pulmonary hypertension Hypertension Pyuria Preadmit: to [facility] ED with slurred speech, lethargy. Malnutrition of moderate degree 04/01/2019 12/02/2021 Delirium 03/29/2019 12/02/2021 Altered mental status 03/24/2019 07/05/2019 UTI (urinary tract infection) 03/24/2019 Hyperkalemia 03/24/2019 12/02/2021 Hypoxia 03/24/2019 12/02/2021 Hypoalbuminemia 03/24/2019 12/02/2021 GARRET (acute kidney injury) 03/24/20192021 CKD (chronic kidney disease) stage 3, GFR 30-59 ml/min 03/24/2019 04/18/2019 High phosphate levels 03/24/2019 12/02/2021 Hyponatremia 03/24/2019 12/02/2021 Recurrent right pleural effusion 07/14/2018 12/02/2021 Anemia of chronic renal failure, stage 3 (modera te) 03/05/2018 12/02/2021 Lower leg edema 01/22/2018 12/02/2021 Overview: 01/15/18 negative venous dopplar Uncontrolled type 2 diabetes mellitus without complication, with long-term current use of insulin 03/21/2016 12/02/2021 Overview: 09/04/17 glucose 233, BUN 25, creatinine 1.04, normal lytes Chronic constipation 03/21/2016 12/02/2021 documented as of this encounter (statuses as of 06/19/2022) [facility] History of Past illness Narrative* Problem Noted Date Resolved Date Encounter for support and coordination of transi tion of care 10/06/2020 12/02/2021 Flaccid neuropathic bladder, 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 Allen Chronic kidney disease, stage IV (severe) 201812/02/2021 Sprain of ligament of cervical spine region 03/2812/02/2021 Overview: 03/21/19 jerk head while mowing the yard when he hit a branch. C-spine demonstrated a C4 cortical step-off, MRI demonstrated no fracture but positive findings for dorsal ligament injuries C2/3 through C7-T1 without evidence of hematoma or cord contusion. Transition of care performed with sharing of clinical summary 04/08/2019 04/18/2019 Overview: Admit [facility] 03/21/19-03/22/19 Discharge diagnoses chronic kidney disease with worsening creatinine, acute kidney injury Hypokalemia Toxic encephalopathy secondary to Flexeril overusage Type 2 diabetes Ischemic cardiomyopathy Coronary artery disease Ligamental cervical neck strain and acute Pulmonary hypertension Hypertension Pyuria Preadmit: to [facility] ED with slurred speech, lethargy. Malnutrition of moderate degree 04/01/2019 12/02/2021 Delirium 03/29/2019 12/02/2021 Altered mental status 03/24/2019 07/05/2019 UTI (urinary tract infection) 03/24/2019 Hyperkalemia 03/24/2019 12/02/2021 Hypoxia 03/24/2019 12/02/2021 Hypoalbuminemia 03/24/2019 12/02/2021 GARRET (acute kidney injury) 03/24/20192021 CKD (chronic kidney disease) stage 3, GFR 30-59 ml/min 03/24/2019 04/18/2019 High phosphate levels 03/24/2019 12/02/2021 Hyponatremia 03/24/2019 12/02/2021 Recurrent right pleural effusion 07/14/2018 12/02/2021 Anemia of chronic renal failure, stage 3 (modera te) 03/05/2018 12/02/2021 Lower leg edema 01/22/2018 12/02/2021 Overview: 01/15/18 negative venous dopplar Uncontrolled type 2 diabetes mellitus without complication, with long-term current use of insulin 03/21/2016 12/02/2021 Overview: 09/04/17 glucose 233, BUN 25, creatinine 1.04, normal lytes Chronic constipation 03/21/2016 12/02/2021 documented as of this encounter (statuses as of 06/23/2022) [facility] History of Past illness Narrative* Problem Noted Date Resolved Date Encounter for support and coordination of transi tion of care 10/06/2020 12/02/2021 Flaccid neuropathic bladder, 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 Allen Chronic kidney disease, stage IV (severe) 201812/02/2021 Sprain of ligament of cervical spine region 03/2812/02/2021 Overview: 03/21/19 jerk head while mowing the yard when he hit a branch. C-spine demonstrated a C4 cortical step-off, MRI demonstrated no fracture but positive findings for dorsal ligament injuries C2/3 through C7-T1 without evidence of hematoma or cord contusion. Transition of care performed with sharing of clinical summary 04/08/2019 04/18/2019 Overview: Admit [facility] 03/21/19-03/22/19 Discharge diagnoses chronic kidney disease with worsening creatinine, acute kidney injury Hypokalemia Toxic encephalopathy secondary to Flexeril overusage Type 2 diabetes Ischemic cardiomyopathy Coronary artery disease Ligamental cervical neck strain and acute Pulmonary hypertension Hypertension Pyuria Preadmit: to [facility] ED with slurred speech, lethargy. Malnutrition of moderate degree 04/01/2019 12/02/2021 Delirium 03/29/2019 12/02/2021 Altered mental status 03/24/2019 07/05/2019 UTI (urinary tract infection) 03/24/2019 Hyperkalemia 03/24/2019 12/02/2021 Hypoxia 03/24/2019 12/02/2021 Hypoalbuminemia 03/24/2019 12/02/2021 GARRET (acute kidney injury) 03/24/20192021 CKD (chronic kidney disease) stage 3, GFR 30-59 ml/min 03/24/2019 04/18/2019 High phosphate levels 03/24/2019 12/02/2021 Hyponatremia 03/24/2019 12/02/2021 Recurrent right pleural effusion 07/14/2018 12/02/2021 Anemia of chronic renal failure, stage 3 (modera te) 03/05/2018 12/02/2021 Lower leg edema 01/22/2018 12/02/2021 Overview: 01/15/18 negative venous dopplar Uncontrolled type 2 diabetes mellitus without complication, with long-term current use of insulin 03/21/2016 12/02/2021 Overview: 09/04/17 glucose 233, BUN 25, creatinine 1.04, normal lytes Chronic constipation 03/21/2016 12/02/2021 documented as of this encounter (statuses as of 06/29/2022) [facility]02-10-2021 History of Past illness Narrative* Problem Noted Date Resolved Date Encounter for support and coordination of transi tion of care 10/06/2020 12/02/2021 Flaccid neuropathic bladder, 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 Allen Chronic kidney disease, stage IV (severe) 201812/02/2021 Sprain of ligament of cervical spine region 03/2812/02/2021 Overview: 03/21/19 jerk head while mowing the yard when he hit a branch. C-spine demonstrated a C4 cortical step-off, MRI demonstrated no fracture but positive findings for dorsal ligament injuries C2/3 through C7-T1 without evidence of hematoma or cord contusion. Transition of care performed with sharing of clinical summary 04/08/2019 04/18/2019 Overview: Admit [facility] 03/21/19-03/22/19 Discharge diagnoses chronic kidney disease with worsening creatinine, acute kidney injury Hypokalemia Toxic encephalopathy secondary to Flexeril overusage Type 2 diabetes Ischemic cardiomyopathy Coronary artery disease Ligamental cervical neck strain and acute Pulmonary hypertension Hypertension Pyuria Preadmit: to [facility] ED with slurred speech, lethargy. Malnutrition of moderate degree 04/01/2019 12/02/2021 Delirium 03/29/2019 12/02/2021 Altered mental status 03/24/2019 07/05/2019 UTI (urinary tract infection) 03/24/2019 Hyperkalemia 03/24/2019 12/02/2021 Hypoxia 03/24/2019 12/02/2021 Hypoalbuminemia 03/24/2019 12/02/2021 GARRET (acute kidney injury) 03/24/20192021 CKD (chronic kidney disease) stage 3, GFR 30-59 ml/min 03/24/2019 04/18/2019 High phosphate levels 03/24/2019 12/02/2021 Hyponatremia 03/24/2019 12/02/2021 Recurrent right pleural effusion 07/14/2018 12/02/2021 Anemia of chronic renal failure, stage 3 (modera te) 03/05/2018 12/02/2021 Lower leg edema 01/22/2018 12/02/2021 Overview: 01/15/18 negative venous dopplar Uncontrolled type 2 diabetes mellitus without complication, with long-term current use of insulin 03/21/2016 12/02/2021 Overview: 09/04/17 glucose 233, BUN 25, creatinine 1.04, normal lytes Chronic constipation 03/21/2016 12/02/2021 documented as of this encounter (statuses as of 07/02/2022) [facility]02-10[facility]21 History of Past illness Narrative* Problem Noted Date Resolved Date Encounter for support and coordination of transi tion of care 10/06/2020 12/02/2021 Flaccid neuropathic bladder, 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 Allen Chronic kidney disease, stage IV (severe) 201812/02/2021 Sprain of ligament of cervical spine region 03/2812/02/2021 Overview: 03/21/19 jerk head while mowing the yard when he hit a branch. C-spine demonstrated a C4 cortical step-off, MRI demonstrated no fracture but positive findings for dorsal ligament injuries C2/3 through C7-T1 without evidence of hematoma or cord contusion. Transition of care performed with sharing of clinical summary 04/08/2019 04/18/2019 Overview: Admit [facility] 03/21/19-03/22/19 Discharge diagnoses chronic kidney disease with worsening creatinine, acute kidney injury Hypokalemia Toxic encephalopathy secondary to Flexeril overusage Type 2 diabetes Ischemic cardiomyopathy Coronary artery disease Ligamental cervical neck strain and acute Pulmonary hypertension Hypertension Pyuria Preadmit: to [facility] ED with slurred speech, lethargy. Malnutrition of moderate degree 04/01/2019 12/02/2021 Delirium 03/29/2019 12/02/2021 Altered mental status 03/24/2019 07/05/2019 UTI (urinary tract infection) 03/24/2019 Hyperkalemia 03/24/2019 12/02/2021 Hypoxia 03/24/2019 12/02/2021 Hypoalbuminemia 03/24/2019 12/02/2021 GARRET (acute kidney injury) 03/24/20192021 CKD (chronic kidney disease) stage 3, GFR 30-59 ml/min 03/24/2019 04/18/2019 High phosphate levels 03/24/2019 12/02/2021 Hyponatremia 03/24/2019 12/02/2021 Recurrent right pleural effusion 07/14/2018 12/02/2021 Anemia of chronic renal failure, stage 3 (modera te) 03/05/2018 12/02/2021 Lower leg edema 01/22/2018 12/02/2021 Overview: 01/15/18 negative venous dopplar Uncontrolled type 2 diabetes mellitus without complication, with long-term current use of insulin 03/21/2016 12/02/2021 Overview: 09/04/17 glucose 233, BUN 25, creatinine 1.04, normal lytes Chronic constipation 03/21/2016 12/02/2021 documented as of this encounter (statuses as of 07/31/2022) [facility]02-10-2021 History of Past illness Narrative* Problem Noted Date Resolved Date Encounter for support and coordination of transi tion of care 10/06/2020 12/02/2021 Flaccid neuropathic bladder, 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 Allen Chronic kidney disease, stage IV (severe) 201812/02/2021 Sprain of ligament of cervical spine region 03/2812/02/2021 Overview: 03/21/19 jerk head while mowing the yard when he hit a branch. C-spine demonstrated a C4 cortical step-off, MRI demonstrated no fracture but positive findings for dorsal ligament injuries C2/3 through C7-T1 without evidence of hematoma or cord contusion. Transition of care performed with sharing of clinical summary 04/08/2019 04/18/2019 Overview: Admit [facility] 03/21/19-03/22/19 Discharge diagnoses chronic kidney disease with worsening creatinine, acute kidney injury Hypokalemia Toxic encephalopathy secondary to Flexeril overusage Type 2 diabetes Ischemic cardiomyopathy Coronary artery disease Ligamental cervical neck strain and acute Pulmonary hypertension Hypertension Pyuria Preadmit: to [facility] ED with slurred speech, lethargy. Malnutrition of moderate degree 04/01/2019 12/02/2021 Delirium 03/29/2019 12/02/2021 Altered mental status 03/24/2019 07/05/2019 UTI (urinary tract infection) 03/24/2019 Hyperkalemia 03/24/2019 12/02/2021 Hypoxia 03/24/2019 12/02/2021 Hypoalbuminemia 03/24/2019 12/02/2021 GARRET (acute kidney injury) 03/24/20192021 CKD (chronic kidney disease) stage 3, GFR 30-59 ml/min 03/24/2019 04/18/2019 High phosphate levels 03/24/2019 12/02/2021 Hyponatremia 03/24/2019 12/02/2021 Recurrent right pleural effusion 07/14/2018 12/02/2021 Anemia of chronic renal failure, stage 3 (modera te) 03/05/2018 12/02/2021 Lower leg edema 01/22/2018 12/02/2021 Overview: 01/15/18 negative venous dopplar Uncontrolled type 2 diabetes mellitus without complication, with long-term current use of insulin 03/21/2016 12/02/2021 Overview: 09/04/17 glucose 233, BUN 25, creatinine 1.04, normal lytes Chronic constipation 03/21/2016 12/02/2021 documented as of this encounter (statuses as of 08/10/2022) [facility]02-10-2021 History of Past illness Narrative* Problem Noted Date Resolved Date Encounter for support and coordination of transi tion of care 10/06/2020 12/02/2021 Flaccid neuropathic bladder, 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 Allen Chronic kidney disease, stage IV (severe) 201812/02/2021 Sprain of ligament of cervical spine region 03/2812/02/2021 Overview: 03/21/19 jerk head while mowing the yard when he hit a branch. C-spine demonstrated a C4 cortical step-off, MRI demonstrated no fracture but positive findings for dorsal ligament injuries C2/3 through C7-T1 without evidence of hematoma or cord contusion. Transition of care performed with sharing of clinical summary 04/08/2019 04/18/2019 Overview: Admit [facility] 03/21/19-03/22/19 Discharge diagnoses chronic kidney disease with worsening creatinine, acute kidney injury Hypokalemia Toxic encephalopathy secondary to Flexeril overusage Type 2 diabetes Ischemic cardiomyopathy Coronary artery disease Ligamental cervical neck strain and acute Pulmonary hypertension Hypertension Pyuria Preadmit: to [facility] ED with slurred speech, lethargy. Malnutrition of moderate degree 04/01/2019 12/02/2021 Delirium 03/29/2019 12/02/2021 Altered mental status 03/24/2019 07/05/2019 UTI (urinary tract infection) 03/24/2019 Hyperkalemia 03/24/2019 12/02/2021 Hypoxia 03/24/2019 12/02/2021 Hypoalbuminemia 03/24/2019 12/02/2021 GARRET (acute kidney injury) 03/24/20192021 CKD (chronic kidney disease) stage 3, GFR 30-59 ml/min 03/24/2019 04/18/2019 High phosphate levels 03/24/2019 12/02/2021 Hyponatremia 03/24/2019 12/02/2021 Recurrent right pleural effusion 07/14/2018 12/02/2021 Anemia of chronic renal failure, stage 3 (modera te) 03/05/2018 12/02/2021 Lower leg edema 01/22/2018 12/02/2021 Overview: 01/15/18 negative venous dopplar Uncontrolled type 2 diabetes mellitus without complication, with long-term current use of insulin 03/21/2016 12/02/2021 Overview: 09/04/17 glucose 233, BUN 25, creatinine 1.04, normal lytes Chronic constipation 03/21/2016 12/02/2021 documented as of this encounter (statuses as of 08/27/2022) [facility]08-13-2019 History of Past illness Narrative* Problem Noted Date Resolved Date Transition of care performed with sharing of clinical summary 04/08/2019 04/18/2019 Overview: Admit [facility] 03/21/19 03/22/19 Discharge diagnoses chronic kidney disease with worsening creatinine, acute kidney injury Hypokalemia Toxic encephalopathy secondary to Flexeril overusage Type 2 diabetes Ischemic cardiomyopathy Coronary artery disease Ligamental cervical neck strain and acute Pulmonary hypertension Hypertension Pyuria Preadmit: to [facility] ED with slurred speech, lethargy. Altered mental status 03/24/2019 07/05/2019 CKD (chronic kidney disease) stage 3, GFR 30-59 ml/min 03/24/2019 04/18/2019 documented as of this encounter (statuses as of 11/14/2021) [facility] Author Jensen Claire [facility] Note Date/Time December 11, 2024 6:1 5pm [facility] Medical Records Department [address] [place] [address] Consultation - Cardiology 12/11/24 0478 MR#: [id number] Acct: [id number] Name: MAURI QUINONES Rep #:[id number] : 1955 69 From: Jensen Claire MD PCP: Dr. Rigoberto Gould MD Status:REG E R Location: ED Assessment & Plan Assessment/Plan (1) Acute hyperkalemia: PLAN: Patient potassium is 5.9. This is up significant from his baseline. He has missed 2 dialysis appointments. Nephrology has been consulted for urgent dialysis. (2) End-stage renal disease on hemodialysis: PLAN: Patient has been on dialysis and has had problems with hypotension during dialysis. He is now off of all antihypertensive medical therapy. Will defer tonephrology for further evaluation and treatment of his end-stage renal disease. (3) History of ischemic cardiomyopathy: PLAN: Patient carries a history of an ischemic cardiomyopathy with an ejection fraction of 45% last evaluated on an echo in 2021. An echo will be repeated on this admission and appropriate medical therapy be recommended pending the outcome of that echocardiogram. We do have significant issues in trying to treat his him with guideline directed medical therapy given his hypotension with dialysis. Historically we have treated him on his off daysand not treated him until after dialysis on the days he received dialysis. Will discuss with nephrology the possibility of adding an SGLT2 inhibitor for treatment of his heart failure. (4) Acute uremia: PLAN: Patient's BUN and creatinine are markedly elevated. He does appear to be mentating normally and alert and oriented x 3. He is able to carry on a normal conversation. Treatment and institution of dialysis to be deferred to nephrology. (5) Paroxysmal atrial fibrillation: PLAN: This is the first time I can find documented he is been in atrial fibrillation. His rate is well-controlled on no rate modulating medical therapy. He does have a remote history of a GI bleed and that his hemoglobin onadmission was 13. I recommend we trial placing him on Eliquis 5 mg twice daily. This is already been instituted in the emergency department. We should stop his aspirin. PLAN: Plan 1. Obtain 2D echocardiogram. 2. Once echo is available we will discuss with the primary service and nephrology about best options for treatment. 3. Would not feel that he will be reverting into sinus rhythm until after his metabolic derangements are corrected. 4. Recommend trialing him on Eliquis 5 mg twice daily. He does have a history of remote GI bleed his hemoglobin is 13 on today's lab work. 5. Currently his rate is well-controlled on no rate modulating drugs. HPI Consult Data Date of Consult: 12/11/24 HPI Narrative Reason for Consultation: New onset atrial fibrillation. HPI Narrative: MAURI QUINONES, is a 69 M who presents with a 5 to 6-day history of a URI typesymptom he denies any fevers or chills but reports that he has been sick and coughing with a nonproductive cough. He missed his last 2 dialysis sessions oneof the second 1 was today. He has noted some increasing dyspnea on exertion andsignificant drop in his appetite. He gets nauseated with any type of attempted oral intake. The patient is diabetic and possibly has gastroparesis. He has missed 2 dialysis sessions in the past without getting sick like this. The patient's EKG now shows that he is in atrial fibrillation I cannot find an old EKG that demonstrates atrial fibs. His other EKGs have shown sinus rhythm. When he was last evaluated in our office October 2024 he was in a regular rhythm but I did not do an ECG. Currently the patient is resting comfortably but his BUN and creatinine are markedly elevated as his potassium. And he is approximately 20 pounds above hisroutine dry weight. The patient does note that he has had some lower extremity edema but he intermittently has this in the past as well. The dialysis team and his dialysis center have been attempting to diurese him byswitching him to torsemide and metolazone. But he has not had any significant urine output by his report since that change was made last week. Historically the patient has had trouble with dialysis due to hypotension and he has had to hold his Coreg the night before. Once he does this is dialysis has been able artie completed in 3 hours. Most recently his Coreg has been discontinued appropriately. The patient has a history of coronary disease status post bypass graft surgery in 2017 receiving a CARTY to the LAD a vein graft to the OM branch of the circumflex and a vein graft to the right coronary artery. His anginal equivalent was a profound dyspnea on exertion with a hot sensation. He denies any recurrence of the symptoms denies any chest pain. He does have a history ofan ischemic cardiomyopathy EF is known to be 45% on an echocardiogram in 2021 ithas not been repeated. The patient has been on hemodialysis long-term he also has a history of mild tricuspid digitation mild mitral stenosis and aortic insufficiency. His right ventricular systolic pressure was 49 on that echo in 2021. Is to be admitted to the PCU nephrology is been consulted for urgent dialysis. [facility] Medical History C. difficile diarrhea Anemia History of GI bleed Pure hypercholesterolemia Ischemic cardiomyopathy Essential hypertension Renal insufficiency Ankylosing spondylitis CAD (coronary artery disease) Overweight (BMI 25.0-29.9) Leg edema Leg swelling Acute systolic heart failure Bradycardia Biliary pleural effusion HTN (hypertension) Ventricular tachyarrhythmia Atherosclerosis of [place] coronary artery of [place] heart without angina pectoris Pulmonary HTN Cardiomyopathy Valvular heart disease NSTEMI (non-ST elevated myocardial infarction) CHF (congestive heart failure) Abscess of right foot Diabetes mellitus with neuropathy Gout DM2 (diabetes mellitus, type 2) Home Medications ?Medication ?Instructions ?Recorded ?Last Taken ?Type latanoprost 0.005 % eye drops 1 drp EACH EYE QHS 06/0312/10/24 History melatonin 5 mg tablet 10 mg PO HS PRN Sleep 12/10/24 History loratadine 10 mg capsule 10 mg PO DAILY PRN allergy s ymptoms 10/24/21 12/10/24 History sevelamer carbonate 800 mg tablet 800 mg PO TID 12/10/24 History handicap placcard #1 ea 07/07/22 Unknown Rx aspirin 81 mg tablet,delayed 81 mg PO DAILY #90 tabs 0 04/23/24 12/10/24 Rx release (Adult Aspirin Regimen) bumetanide 2 mg tablet 2 mg PO DAILY FLUID #90 tabs 07/09/24 12/10/24 Rx hydroxyzine HCl 25 mg tablet 25 mg PO Q6 PRN itch 03/12/1912/10/24 History insulin glargine 100 unit/mL (3 10 unit subcut QPM 12/19 Unknown History mL) subcutaneous pen (Lantus Solostar U-100 Insulin) tadalafil 20 mg tablet 20 mg PO DAILY PRN sexual ac tivity 10/28/24 Unknown History atorvastatin 40 mg tablet 40 mg PO DAILY 12/11/24 04/02/18 History benzonatate 100 mg capsule 100 mg PO TID PRN cough 12/10/24 History metolazone 5 mg tablet 5 mg PO DAILY 12/11/2412/10 History pantoprazole 40 mg tablet,delayed 40 mg PO BID 5 12/10/24 History release trazodone 50 mg tablet 50 mg PO QHS 12/11/24 History vitamin B complex-vitamin C-folic 1 tab PO DAILY 12/1112/10/24 History acid 0.8 mg tablet (Dialyvite 800) Allergy/AdvReac Type Severity Reaction Status Date / Time pregabalin (From Lyrica) Allergy Angioedema Verified 12/11/24 14:17 Family History Father CAD (coronary artery disease) Mother CAD (coronary artery disease) Surgical History History of cataract extraction hx femur surgery Hx of arthroscopy History of open reduction and internal fixation (ORIF) procedure Hx of CABG (~04/12/17) Social History household members: spouse Smoking Status: Former smoker alcohol intake: never substance use type: does not use caffeine: No what type of physical activity do you participate in: none seatbelt use: always do you feel safe at home: Yes ROS Constitutional Constitutional: Reports as per HPI Eyes Eyes: Reports systems reviewed and no addt'l complaints, except as documented ENT HEENT: Reports systems reviewed and no addt'l complaints, except as documented Cardiovascular Cardiovascular: Reports as per HPI Respiratory/Chest Respiratory/Chest: Reports as per HPI Gastrointestinal Gastrointestinal: Reports as per HPI Genitourinary Genitourinary: Reports as per HPI Musculoskeletal Musculoskeletal: Reports as per HPI Integumentary Integumentary: Reports systems reviewed and no addt'l complaints, except as documented Neurologic Neurologic: Reports systems reviewed and no addt'l complaints, except as documented Psychiatric Psychiatric: Reports systems reviewed and no addt'l complaints, except as documented Endocrine Endocrinology: Reports as per HPI Hematologic/Lymphatic Hematologic/Lymphatic: Reports as per HPI Allergic/Immunologic Allergic/Immunologic: Reports systems reviewed and no addt'l complaints, except as documented Physical Exam Const alert and oriented x3 HEENT normocephalic Eyes EOMs intact bilaterally Neck supple Carotids: Negative for bruit Chest Chest: midline sternotomy incision Resp normal respiratory effort Auscultation: crackles bilateral lower and 1/2 way up and diminished lung soundsbilateral lower Cardio Cardio Narrative: Functioning fistula in his left upper arm. Rate: regular rate Rhythm: abnormal rhythm irregularly irregular Heart Sounds: S1 normal, S2 normal and murmur systolic II/ blowing mid right sternal border; Negative for click or gallop GI soft to palpation Extremity General Extremity: edema bilateral lower extremity Details: mild Neuro Neuro Narrative: Alert and oriented x 3 Risk Stratification Risk Stratification Applicable: No Charges/Coding Visit Charges Inpatient E&M: 26500 Init Hosp L3 Objective Data Vital Signs: Vital Signs Temp Pulse Resp BP Pulse Ox O2 Del Method 97.6 F L 76 20 H 97/71 93 Room Air 12/11/24 14:17 12/11/24 16:16 12/11/24 16:16 12/11/24 16:16 12/11/24 16:16 12/11/24 16:16 Oxygen Delivery Method Room Air Lab / Micro Data Attestation: I reviewed the patient's lab results. 12/11/24 14:35 12/11/24 14:35 Labs: Laboratory Results - last 24 hr 12/11/24 14:35: WBC 9.1, RBC 4.01 L, Hgb 13.0, Hct 37.2 L, MCV 92.8, MCH 32.4 H,MCHC 34.9, RDW Std Deviation 56.2 H, RDW Coeff of Yuri 17.0 H, Plt Count 120 L, MPV 10.1, Immature Gran % (Auto) 0.400, Neut % (Auto) 77.3 H, Lymph % (Auto) 7.7L, Bucks % (Auto) 13.0 H, Eos % (Auto) 0.9, Baso % (Auto) 0.7, Absolute Neuts (auto) 7.0, Absolute Lymphs (auto) 0.70 L, Nucleated RBC % 0, Sodium 131 L, Potassium 5.9 H, Chloride 84 L, Carbon Dioxide 21.0, Anion Gap 26 H, BUN 124 H*, Creatinine 8.04 H*, Est GFR (MDRD) Non-Af 7 L, BUN/Creatinine Ratio 15.4, Glucose 88, Calcium 10.0 Micro: Microbiology 04/17/25 14:42 Mucosa - Nose SARS-CoV-2, Influenza & RSV (PCR) - Final Rhythm Strip Rhythm Strip: A-fib Rate: 90 Cardiology Labs/Tests 12/11/24 14:35: WBC 9.1, RBC 4.01 L, Hgb 13.0, Hct 37.2 L, MCV 92.8, MCH 32.4 H,MCHC 34.9, Plt Count 120 L, MPV 10.1, Immature Gran % (Auto) 0.400, Neut % (Auto) 77.3 H, Lymph % (Auto) 7.7 L, Bucks % (Auto) 13.0 H, Eos % (Auto) 0.9, Baso % (Auto) 0.7, Absolute Neuts (auto) 7.0, Nucleated RBC % 0, Sodium 131 L, Potassium 5.9 H, Chloride 84 L, Carbon Dioxide 21.0, Anion Gap 26 H, BUN 124 H*, Creatinine 8.04 H*, Est GFR (MDRD) Non-Af 7 L, BUN/Creatinine Ratio 15.4, Glucose 88, Calcium 10.0 Rhythm: EKG: ECHO: Stress Test: Cardiac Cath: PCI: CT Surgery: Holter monitor: EPS: PPM: CXR: Chest CT Scan: Radiography Diagnostic Testing: Radiology Impression Chest X-Ray 12/11/24 15:10 IMPRESSION: CHF exacerbation. Reading Location: [facility] 12/11/241814 <Electronically signed by Jensen Claire MD> Cosigner Signature (if applicable): CC: Dr. Rigoberto Gould MD~ Signed [facility] Work Phone: Evaluation note* Diagnosis ESRD needing dialysis (HCC) End stage renal disease Bypass graft stenosis, initial encounter ([facility]) documented in this encounter [facility] Work Phone: Evaluation note* Diagnosis Hypertension, essential- Primary Unspecified essential hypertension Chronic kidney disease, stage IV (severe) (HCC) Chronic kidney disease, Stage IV (severe) Type 2 diabetes mellitus without complication, with long-term current use of insulin (HCC) [facility] Diagnosis Arteriosclerotic heart disease (ASHD)- Primary Coronary atherosclerosis of unspecified type of vessel, [place] or graft Mononeuropathy due to underlying disease Hypertension, essential Unspecified essential hypertension Acute on chronic diastolic congestive heart failure (HCC) Acute on chronic diastolic heart failure Ischemic cardiomyopathy Other specified forms of chronic ischemic heart disease 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 Anemia of chronic renal failure, stage 3 (moderate), unspecified whether stage 3a or 3b CKD (HCC) Chronic kidney disease, stage IV (severe) (HCC) Chronic kidney disease, Stage IV (severe) 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 due to underlying condition, unspecified proliferative retinopathy type ([facility]) [facility] Diagnosis Pre-transplant evaluation for kidney transplant- Primary [facility] Hypertension, essential- Primary Unspecified essential hypertension Type 2 diabetes mellitus without complication, with long-term current use of insulin ([facility]) [facility] Diagnosis Closed fracture of left lower extremity, sequela- Primary ESRD (end stage renal disease) on dialysis ([facility]) End stage renal disease Type 2 diabetes mellitus without complication, with long-term current use of insulin ([facility]) Hypertension, essential Unspecified essential hypertension JOHNY (obstructive sleep apnea) Obstructive sleep apnea (adult) (pediatric) C. difficile colitis Intestinal infection due to clostridium difficile Gastrointestinal hemorrhage, unspecified gastrointestinal hemorrhage type documented in this encounter [facility] [facility] Diagnosis Diarrhea of infectious origin- Primary Diarrhea of presumed infectious origin [facility] Diagnosis C. difficile colitis- Primary Intestinal infection due to clostridium difficile Need for vaccination Need for prophylactic vaccination and inoculation against unspecified single disease Arteriosclerotic heart disease (ASHD) Coronary atherosclerosis of unspecified type of vessel, [place] or graft Hypertension, essential Unspecified essential hypertension Ischemic cardiomyopathy Other specified forms of chronic ischemic heart disease ESRD (end stage renal disease) on dialysis (HCC) End stage renal disease JOHNY (obstructive sleep apnea) Obstructive sleep apnea (adult) (pediatric) [facility] Diagnosis C. difficile diarrhea- Primary Intestinal infection due to clostridium difficile [facility] Diagnosis Mononeuropathy due to underlying disease- Primary PVD (peripheral vascular disease) ([facility]) Peripheral vascular disease, unspecified 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 due to underlying condition, unspecified proliferative retinopathy type ([facility]) ESRD (end stage renal disease) on dialysis ([facility]) End stage renal disease Chronic combined systolic and diastolic CHF (congestive heart failure) ([facility]) Chronic combined systolic and diastolic heart failure Ankylosing spondylitis of multiple sites in spine ([facility]) Ankylosing spondylitis Hypertension, essential Unspecified essential hypertension Ischemic cardiomyopathy Other specified forms of chronic ischemic heart disease JOHNY (obstructive sleep apnea) Obstructive sleep apnea (adult) (pediatric) Osteopenia, senile Disorder of bone and cartilage, unspecified Screening for colon cancer Special screening for malignant neoplasms, colon Type 2 diabetes mellitus without complication, with long-term current use of insulin ([facility]) [facility] Diagnosis URI, acute- Primary Acute upper respiratory infections of unspecified site [facility] Diagnosis 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- Primary Neoplasm of uncertain behavior of skin [facility] Diagnosis 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 Neoplasm of uncertain behavior of skin [facility] Diagnosis Skin lesion of right lower extremity- Primary Dysesthesia Disturbance of skin sensation [facility] Diagnosis Skin lesion of right lower extremity- Primary [facility] Diagnosis Acute right ankle pain- Primary Acute pain of right knee Other closed fracture of proximal end of right tibia, initial encounter Right knee pain, unspecified chronicity Ankylosing spondylitis of multiple sites in spine ([facility]) Ankylosing spondylitis PVD (peripheral vascular disease) ([facility]) Peripheral vascular disease, unspecified Acute pain of right knee Acute right ankle pain [facility] Diagnosis Other closed fracture of proximal end of right tibia, initial encounter- Primary [facility] Diagnosis Umbilical hernia without obstruction or gangrene- Primary Umbilical hernia without mention of obstruction or gangrene Seasonal allergic rhinitis due to pollen Ischemic cardiomyopathy Other specified forms of chronic ischemic heart disease 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 JOHNY (obstructive sleep apnea) Obstructive sleep apnea (adult) (pediatric) PVD (peripheral vascular disease) ([facility]) Peripheral vascular disease, unspecified [facility] Diagnosis Other closed fracture of proximal end of right tibia, initial encounter- Primary [facility] Diagnosis Right knee pain, unspecified chronicity [facility] Diagnosis Right knee pain, unspecified chronicity [facility] Diagnosis Acute pain of right knee Acute right ankle pain [facility] Diagnosis Acute right ankle pain [facility] Diagnosis Acute right ankle pain- Primary [facility] Diagnosis Acute right ankle pain- Primary Arthritis of right midfoot Stress fracture of navicular bone of right foot Acute right ankle pain [facility] Diagnosis Pain Generalized pain [facility]* Diagnosis Ischemic cardiomyopathy- Primary Other specified forms of chronic ischemic heart disease Screening for diabetic retinopathy Screening for other eye conditions Screening for depression Encounter for screening examination for other mental health and behavioral disorders Arteriosclerotic heart disease (ASHD) Coronary atherosclerosis of unspecified type of vessel, [place] or graft Chronic kidney disease (CKD), stage V ([facility]) Chronic kidney disease, Stage V Encounter for immunization Need for other specified prophylactic vaccination against single bacterial disease Gastrointestinal hemorrhage, unspecified gastrointestinal hemorrhage type Type 2 diabetes mellitus without complication, with long-term current use of insulin ([facility]) PVD (peripheral vascular disease) ([facility]) Peripheral vascular disease, unspecified Hypertension, essential Unspecified essential hypertension ESRD (end stage renal disease) on dialysis ([facility]) End stage renal disease [facility] Diagnosis ED (erectile dysfunction) of organic origin- Primary Impotence of organic origin Gastrointestinal hemorrhage, unspecified gastrointestinal hemorrhage type Type 2 diabetes mellitus without complication, with long-term current use of insulin ([facility]) [facility] Diagnosis Stress fracture of navicular bone of right foot- Primary Other closed fracture of proximal end of right tibia, initial encounter [facility] Diagnosis Acute pain of right knee- Primary Right thigh pain Pain in limb Pain in right hip Pain in joint, pelvic region and thigh [facility]* Diagnosis Nausea- Primary Nausea alone Gastroenteritis Other and unspecified noninfectious gastroenteritis and colitis ESRD (end stage renal disease) on dialysis ([facility]) End stage renal disease [facility] Diagnosis Instability of prosthetic knee, initial encounter ([facility]) ([facility])- Primary Weakness of right quadriceps muscle 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 [facility]* Diagnosis Pain in right hip Pain in joint, pelvic region and thigh Acute pain of right knee Right thigh pain Pain in limb [facility]* Diagnosis Instability of prosthetic knee, initial encounter ([facility]) ([facility])- Primary [facility]* Diagnosis Mechanical complication of internal orthopedic device, implant or graft, initial encounter ([facility])- Primary [facility]* Diagnosis Itching- Primary Unspecified pruritic disorder Type 2 diabetes mellitus without complication, with long-term current use of insulin ([facility]) [facility]* Diagnosis Status post total replacement of right hip- Primary [facility]* Diagnosis Right leg pain- Primary Pain in limb documented in this encounter [facility]* Diagnosis Status post total replacement of right hip [facility]* Diagnosis Pain of right hip- Primary Status post right hip replacement Hip joint replacement by other means [facility]* Diagnosis Pain of right hip [facility]* Diagnosis Pain of right hip Status post right hip replacement Hip joint replacement by other means [facility]* Diagnosis Chronic insomnia- Primary Insomnia, unspecified URI, acute Acute upper respiratory infections of unspecified site Type 2 diabetes mellitus without complication, with long-term current use of insulin ([facility]) Arteriosclerotic heart disease (ASHD) Coronary atherosclerosis of unspecified type of vessel, [place] or graft [facility]* Diagnosis Pain of right hip- Primary Pain of right hip [facility]* Diagnosis Urinary tract infection without hematuria, site unspecified- Primary Urinary retention Retention of urine, unspecified [facility]* Diagnosis Chronic insomnia Insomnia, unspecified [facility]* Diagnosis Urinary retention- Primary Retention of urine, unspecified [facility] Diagnosis Urine retention- Primary Retention of urine, unspecified [facility] Author Mary Jo Granados [facility] Note Date/Time December 11, 2024 5:1 8pm [facility] Medical Records Department [address] [place] [address] H&P Exam - Hospitalist 12/11/24 1652 MR#: [id number] Acct: [id number] Name: MAURI QUINONES Rep #:[id number] : 1955 69 From: Mary Jo Granados MD PCP: Dr. Rigoberto Gould MD Status:REG E R Location: ED HPI - General General Date of Admission: 12/11/24 Date of Service: 12/11/24 Chief Complaint: Missed HD x 2, fatigue, malaise, N/V, dyspnea, increased edema/weight gain/orthopnea, cough. HPI Narrative The patient is a 69 y/o M w/ PMHx: Diabetes mellitus type II, HTN, HLD, HFrEF/ischemic cardiomyopathy, CAD, Pulmonary HTN, Ankylosing spondylitis, GERD w/ Hx GI bleed, Hx C. difficile diarrhea/colitis, ESRD on HD, Valvular Heart Disease, CAD status post CABG, Former tobacco use who presents to the [facility] ED on 12/11/24 with history of recently missing 2 sessions of HD and following then onset of reported URI type symptoms including mild dyspnea, worse with exertion,cough, sore throat with fatigue, malaise and persistent nausea and emesis noted to be waxing and waning with poor oral intake and decreased urine output as he notes he still makes urine with chronic stable orthopnea as well as chronic distal lower extremity swelling and pain with no recent fevers or chills nor anyassociated abdominal pain nor any abnormal looking emesis but given inability tomaintain appropriate oral intake and GI losses prompted ED evaluation. He notesin the past when he has been sick and missed 2 dialysis sessions he is never hadthe issues he is having currently. He reports significant recent issues managing dry weight and notes that cardiology has altered his medications with recent addition of metolazone. He notes that he was also recently taken off of his beta-rufus therapy secondary to issues with low blood pressure with dialysis. Workup in the ED included T97.6, heart rate 79, BP 140/98, respiratory rate 18, 97% room air, CBC with WBC 9.1, hemoglobin 13, platelet 120with lymphopenia, BMP with sodium 131, potassium 5.9, chloride 84, chest x-ray with congestion, EKG with atrial fibrillation rate controlled with no acute evidence of ischemia and no concern for peaked T waves. [facility] Medical History C. difficile diarrhea Anemia History of GI bleed Pure hypercholesterolemia Ischemic cardiomyopathy Essential hypertension Renal insufficiency Ankylosing spondylitis CAD (coronary artery disease) Overweight (BMI 25.0-29.9) Leg edema Leg swelling Acute systolic heart failure Bradycardia Biliary pleural effusion HTN (hypertension) Ventricular tachyarrhythmia Atherosclerosis of [place] coronary artery of [place] heart without angina pectoris Pulmonary HTN Cardiomyopathy Valvular heart disease NSTEMI (non-ST elevated myocardial infarction) CHF (congestive heart failure) Abscess of right foot Diabetes mellitus with neuropathy Gout DM2 (diabetes mellitus, type 2) Home Medications ?Medication ?Instructions ?Recorded ?Last Taken ?Type latanoprost 0.005 % eye drops 1 drp EACH EYE QHS 06/0312/10/24 History melatonin 5 mg tablet 10 mg PO HS PRN Sleep 12/10/24 History loratadine 10 mg capsule 10 mg PO DAILY PRN allergy s ymptoms 10/24/21 12/10/24 History sevelamer carbonate 800 mg tablet 800 mg PO TID 12/10/24 History handicap placcard #1 ea 07/07/22 Unknown Rx aspirin 81 mg tablet,delayed 81 mg PO DAILY #90 tabs 0 04/23/24 12/10/24 Rx release (Adult Aspirin Regimen) bumetanide 2 mg tablet 2 mg PO DAILY FLUID #90 tabs 07/09/24 12/10/24 Rx hydroxyzine HCl 25 mg tablet 25 mg PO Q6 PRN itch 03/0 12/1912/10/24 History insulin glargine 100 unit/mL (3 10 unit subcut QPM 12/19 Unknown History mL) subcutaneous pen (Lantus Solostar U-100 Insulin) tadalafil 20 mg tablet 20 mg PO DAILY PRN sexual ac tivity 10/28/24 Unknown History atorvastatin 40 mg tablet 40 mg PO DAILY 12/11/24 04/02/18 History benzonatate 100 mg capsule 100 mg PO TID PRN cough 12/10/24 History metolazone 5 mg tablet 5 mg PO DAILY 12/11/2412/10 History pantoprazole 40 mg tablet,delayed 40 mg PO BID 5 12/10/24 History release trazodone 50 mg tablet 50 mg PO QHS 12/11/24 History vitamin B complex-vitamin C-folic 1 tab PO DAILY 12/1112/10/24 History acid 0.8 mg tablet (Dialyvite 800) Allergy/AdvReac Type Severity Reaction Status Date / Time pregabalin (From Lyrica) Allergy Angioedema Verified 12/11/24 14:17 Family History Father CAD (coronary artery disease) Mother CAD (coronary artery disease) Surgical History History of cataract extraction hx femur surgery Hx of arthroscopy History of open reduction and internal fixation (ORIF) procedure Hx of CABG (~04/12/17) Social History (Updated 12/11/24 @ 17:[address] Mary Jo Granados MD) household members: spouse Smoking Status: Former smoker alcohol intake: never substance use type: does not use caffeine: No what type of physical activity do you participate in: none seatbelt use: always do you feel safe at home: Yes ROS ROS Narrative Admission Review of Systems: CONSTITUTIONAL: No weight loss, fever, chills, + weakness or fatigue. HEENT: + Sore throat, congestion, rhinorrhea. Eyes: No visual loss, blurred vision, double vision or yellow sclerae. Ears, Nose, Throat: No hearing loss, sneezing. SKIN: No rash or itching, lesions, wounds. CARDIOVASCULAR: + Chronic distal edema, orthopnea. No chest pain, chest pressure or chest discomfort, palpitations, syncopal events. RESPIRATORY: + Dyspnea, worse with exertion, cough not markedly productive. No wheezing, hemoptysis. GASTROINTESTINAL: + Anorexia/lack of appetite, nausea, vomiting. No diarrhea, abdominal pain, melena, BRBPR. GENITOURINARY: + Decreased urine output. No dysuria, frequency, urgency or retention. NEUROLOGICAL: No headache, dizziness, syncope, paralysis, ataxia, numbness or tingling in the extremities, focal weakness, change in bowel or bladder control,seizure. MUSCULOSKELETAL: + muscle, back pain, joint pain or stiffness. HEMATOLOGIC: + Chronic anemia, easy bleeding/bruising. LYMPHATICS: No enlarged nodes. No history of splenectomy. PSYCHIATRIC: No history of depression or anxiety. ENDOCRINOLOGIC: + reports of sweating, cold or heat intolerance. No polyuria or polydipsia. ALLERGIES: No history of asthma, hives, eczema or rhinitis. Vital Signs Vital Signs Vital Signs: 12/11/24 14:17 Temperature 97.6 F L Temperature Source Oral Pulse Rate 79 Respiratory Rate 18 Blood Pressure 140/98 H Blood Pressure Mean 112 Pulse Ox 97 Oxygen Delivery Method Room Air Physical Exam Narrative Physical Examination: General: Awake, alert, oriented x 3 and cooperative, seated upright in the ED bed, mildly altered speech secondary to not having dentures in place. Skin: Normal color, normal turgor, no icterus, no cyanosis except very stage ecchymoses, abrasion, bilateral lower extremity venous stasis skin changes. HEENT: AT/NC, EOMI, PERRLA, MMM, no carotid bruits, + JVD noted. Lungs: Diminished, greater bases, mildly increased respiratory rate but no distress, rales/crackles bilaterally especially posteriorly, no rhonchi or wheezing. Heart: Irregular, rate controlled; no gallop, rub audible, + SM Abdomen: Soft, NTTP, ND, distant normal BS, no appreciated HSM. Extremities: No cyanosis, no clubbing, pedal to proximal nieto 2+ pitting edema, left upper extremity with + thrill. Neurological: Patient awake, alert, oriented as noted, cognitive function intact; pupils equally reactive to light and accommodation, cranial nerves grossnormal, moving all 4 extremities, no focal deficits, strength moderately to severely globally decreased secondary to acute presentation. Psychiatric: Affect appears fatigued, no acute evidence of depressive or anxietyfeelings. Results Lab / Micro Data 12/11/24 14:35 12/11/24 14:35 Labs: Laboratory Results - last 24 hr 12/11/24 14:35: WBC 9.1, RBC 4.01 L, Hgb 13.0, Hct 37.2 L, MCV 92.8, MCH 32.4 H,MCHC 34.9, RDW Std Deviation 56.2 H, RDW Coeff of Yuri 17.0 H, Plt Count 120 L, MPV 10.1, Immature Gran % (Auto) 0.400, Neut % (Auto) 77.3 H, Lymph % (Auto) 7.7L, Bucks % (Auto) 13.0 H, Eos % (Auto) 0.9, Baso % (Auto) 0.7, Absolute Neuts (auto) 7.0, Absolute Lymphs (auto) 0.70 L, Nucleated RBC % 0, Sodium 131 L, Potassium 5.9 H, Chloride 84 L, Carbon Dioxide 21.0, Anion Gap 26 H, BUN 124 H*, Creatinine 8.04 H*, Est GFR (MDRD) Non-Af 7 L, BUN/Creatinine Ratio 15.4, Glucose 88, Calcium 10.0 Micro: Microbiology 12/11/24 14:42 Mucosa - Nose SARS-CoV-2, Influenza & RSV (PCR) - Final Imaging Radiology Impression Chest X-Ray 12/11/24 15:10 IMPRESSION: CHF exacerbation. Reading Location: [facility] Assessment & Plan Assessment/Plan (1) Acute hyperkalemia: (2) Hyponatremia: (3) Fluid overload: (4) Acute uremia: PLAN: Plan The patient is a 69 y/o M w/ PMHx: Diabetes mellitus type II, HTN, HLD, HFrEF/ischemic cardiomyopathy, CAD, Pulmonary HTN, Ankylosing spondylitis, GERD w/ Hx GI bleed, Hx C. difficile diarrhea/colitis, ESRD on HD, Valvular Heart Disease, CAD status post CABG, Former tobacco use who presents to the [facility] ED on 12/11/24 with history of recently missing 2 sessions of HD and following then onset of reported URI type symptoms including mild dyspnea, worse with exertion,cough, sore throat with fatigue, malaise and persistent nausea and emesis noted to be waxing and waning with poor oral intake and decreased urine output as he notes he still makes urine with chronic stable orthopnea as well as chronic distal lower extremity swelling and pain with no recent fevers or chills nor anyassociated abdominal pain nor any abnormal looking emesis but given inability tomaintain appropriate oral intake and GI losses prompted ED evaluation. #1. Acute Decompensated HFrEF/ischemic cardiomyopathy suspected secondary to primarily missing dialysis x 2 sessions, complicated by onset of intractable nausea and emesis possibly because of uremia: Will admit to PCU, maintain on cardiac telemetry, monitor I/Os, maintain on intake restriction, ECHO requested as none noted since 2021, IV laxis until HD available, nephrology consulted for dialysis preferentially today, continue medical therapy, magnesium level requested, place neck vanessa wraps bilateral lower extremity elevation. Given recent significant difficulties with managing patient dry weight per discussion with patient and family will request cardiology involvement. Given recent significant issues with hypotension especially with dialysis and current dialysis needs will initiate on midodrine as well. #2. Acute kidney injury on ESRD on HD, secondary to uremia and GI losses: Admission BUN/Cr 124/8.04, GFR 7, prior baseline creatinine noted to be primarily 4.2-4.3 however this was in 2021 thus it is uncertain exactly what range he has been recently. Given presentation with missed dialysis and concernfor volume overload will avoid aggressive hydration, GI losses potentially secondary to uremia, nephrology consulted and preferentially would be dialyzed on day of admission. Avoiding aggressive hydration given concern for overload. #3. Hyperkalemia: Admission potassium 5.9 in the setting of acute kidney injury, will continue hyperkalemic protocol with initiation of insulin, dextrose, albuterol, Kayexalate with serial repeat BMP until clinically assured improvement, maintain on telemetry. Nephrology consulted for dialysis as noted. #4. Acute hyponatremia, hypochloremia, unfortunately it appears he is volume overloaded thus could be a component of hypervolemia but also he has been stating intractable nausea and emesis but certainly has some GI loss component: Admission sodium 131, chloride 84, given overload concerns avoiding aggressive hydration, nephrology consulted for preferentially dialysis on day of presentation. #5. Acute thrombocytopenia, possibly reactive given acute presentation with questionable concurrent URI in addition to as noted above: Admission platelet 120, baseline previously normal, most recently however labs from 2021, will continue to trend CBC. #6. Possible Acute viral syndrome suspected: Complicates presentation, potentially could be symptoms primarily secondary to missing dialysis x 2 but uncertain, rapid SARS COVID/influenza/RSV negative, will obtain full respiratoryviral panel, sputum Cx, procalcitonin, treat conservatively with as needed regimen for cough, congestion. #7. Paroxysmal atrial fibrillation, new onset, rate controlled: EKG in ED w/ atrial fibrillation, rate controlled in the ED and patient and deny historynotes not any other records from the cardiology office also. Will maintain on telemetry, obtain magnesium level, obtain ECHO, obtain TSH level. CHADs scoring appropriate for anticoagulation start, will add Eliquis. #8. CAD: Status post CABG (S/P surgery with CARTY to LAD, SVG to OM system, and SVG to PDA in March 2017 at [facility]), if able to tolerate will continue aspirin, statin, Coreg regimen, not on VANESSA/ARB with underlying renal disease as noted. #9. Diabetes mellitus type II: Hold oral home regimen, continue home insulin regimen however pending blood sugar assessments given clear liquids at this timegiven nausea and emesis bouts may consider one half dose or holding of hypoglycemia concern, maintained on every 6 hours accu checks w/ ISS. #10. PAF: Patient with EKG with atrial fibrillation rate controlled, will continue Coreg, per current list is not chronically anticoagulated. #11. GERD, history of GI bleed: Will maintain on IV PPI given intractable nausea and emesis until improving. #12. Pulmonary hypertension: Complicates presentation, per records appears he is only on tadalafil and is listed as needed but clarifying to be certain. #13. Hypertension: Continue home regimen including hydralazine, doxazosin, Coreg, PRN hydralazine. Also normally on bumetanide and metolazone, given overload appearance if necessary may consider pulsed dosing with IV regimen however given his significant acute kidney injury on chronic with dialysis needspreferentially would wait until dialysis performed before readdition of these medications especially given ongoing GI losses. #14. Hyperlipidemia: Will continue patient on statin therapy. #15. Valvular heart disease: Remote echo noted from 04/25/2022 from outside facility with mildly dilated LV, moderate LV hypertrophy, LV systolic function mildly decreased with EF 45? percent, grade 2 LV diastolic dysfunction, RV moderately dilated, RV systolic function moderately decreased, mildly dilated LAand RA, moderate 2+ TVR, RVSP 49 mmHg consistent with moderate pulmonary hypertension, mild mitral stenosis due to moderate MAC, mild PI, mild AI, apicalanterior lateral, mid anterolateral, mid inferior septal hypokinesis. Echocardiogram requested as noted above. #16. Former tobacco use: Encourage continued tobacco cessation. #17. Allergic rhinitis: Continue patient home loratadine regimen. #18. DVT prophylaxis: Starting on Eliquis as noted. #18 CODE status: Patient HCPOA and living will are not in place but his whois present would be his medical decision-maker if necessary he notes. Discussed CODE status at length including difference between FULL code, DNR-CCA and DNR- CCstatus. Following discussions about the differences in these status, requested DNR-CCA, no intubation status. Advanced Care Planning Face to Face Time: 16 minutes. Charges/Coding Visit Charges Inpatient E&M: 10742 Init Hosp L3 Procedures Hospitalists Procedures: 45875 Advncd Care Plan 30 Min 12/11/24 1718 <Electronically signed by Mary Jo Granados MD> Cosigner Signature (if applicable): CC: Dr. Mary Jo Granados MD; Dr. Rigoberto Gould MD~ Signed [facility] Work Phone: Reason for referral (narrative)* Diagnostic Procedure Only (Routine) - Closed Specialty Diagnoses / Procedures Referred By Contac t Referred To Contact XR IMAGING Diagnoses Acute right ankle pain Procedures XR ANKLE GENERAL 3V AP/LAT/OBL RIGHT RADEX ANKLE COMPLETE MINIMUM 3 VIEWS Nupur De La Rosa MD [address] [place] [address] [place] [address] Referral ID Status Reason Start Date Expiration Date V isits Requested Visits Authorized [id number] Closed Auto-Generate d Referral 02/13/2024 03/14/2025 1 1 * Diagnostic Procedure Only (Routine) - Closed Specialty Diagnoses / Procedures Referred By Contac t Referred To Contact XR IMAGING Diagnoses Acute pain of right knee Procedures XR KNEE INJURY 4V AP/LAT/OBLS RIGHT RADIOLOGIC EXAM KNEE COMPLETE 4/MORE VIEWS Nupur De La Rosa MD [address] [id number] [place] [address] Referral ID Status Reason Start Date Expiration Date V isits Requested Visits Authorized [id number] Closed Auto-Generate d Referral 02/13/2024 03/14/2025 1 1 [facility] for referral (narrative)* Diagnostic Procedure Only (Routine) - Closed Specialty Diagnoses / Procedures Referred By Contac t Referred To Contact XR IMAGING Diagnoses Right knee pain, unspecified chronicity Procedures XR KNEE INJURY 4V AP/LAT/OBLS RIGHT RADIOLOGIC EXAM KNEE COMPLETE 4/MORE VIEWS Ra Whatley PA-C [address] [place] [address] [place] [address] Referral ID Status Reason Start Date Expiration Date V isits Requested Visits Authorized [id number] Closed Auto-Generate d Referral 03/12/2024 04/11/2025 1 1 [facility] for referral (narrative)* Diagnostic Procedure Only (Routine) - Closed Specialty Diagnoses / Procedures Referred By Contac t Referred To Contact XR IMAGING Diagnoses Right knee pain, unspecified chronicity Procedures XR KNEE INJURY 4V AP/LAT/OBLS RIGHT RADIOLOGIC EXAM KNEE COMPLETE 4/MORE VIEWS Ra Whatley PA-C [address] [place] [address] [place] [address] Referral ID Status Reason Start Date Expiration Date V isits Requested Visits Authorized [id number] Closed Auto-Generate d Referral 02/18/2024 03/19/2025 1 1 [facility] for referral (narrative)* Diagnostic Procedure Only (Routine) - Closed Specialty Diagnoses / Procedures Referred By Contac t Referred To Contact XR IMAGING Diagnoses Acute right ankle pain Procedures XR ANKLE GENERAL 3V AP/LAT/OBL RIGHT RADEX ANKLE COMPLETE MINIMUM 3 VIEWS Nupur De La Rosa MD [address] [address] [place] [address] Referral ID Status Reason Start Date Expiration Date V isits Requested Visits Authorized [id number] Closed Auto-Generate d Referral 02/13/2024 03/14/2025 1 1 * Diagnostic Procedure Only (Routine) - Closed Specialty Diagnoses / Procedures Referred By Contac t Referred To Contact XR IMAGING Diagnoses Acute pain of right knee Procedures XR KNEE INJURY 4V AP/LAT/OBLS RIGHT RADIOLOGIC EXAM KNEE COMPLETE 4/MORE VIEWS Nupur De La Rosa MD [address] [place] [address] [place] [address] Referral ID Status Reason Start Date Expiration Date V isits Requested Visits Authorized [id number] Closed Auto-Generate d Referral 02/13/2024 03/14/2025 1 1 [facility] for referral (narrative)* Diagnostic Procedure Only (Routine) - Closed Specialty Diagnoses / Procedures Referred By Contac t Referred To Contact XR IMAGING Diagnoses Acute right ankle pain Procedures XR ANKLE GENERAL 3V AP/LAT/OBL RIGHT RADEX ANKLE COMPLETE MINIMUM 3 VIEWS Nupur De La Rosa MD [address] [place] [address] [place] [address] Referral ID Status Reason Start Date Expiration Date V isits Requested Visits Authorized [id number] Closed Auto-Generate d Referral 05/07/2024 06/06/2025 1 1 [facility] for referral (narrative)* Diagnostic Procedure Only (Routine) - New Request Specialty Diagnoses / Procedures Referred By Contac t Referred To Contact XR IMAGING Diagnoses Acute pain of right knee Right thigh pain Procedures XR FEMUR GENERAL 2V AP/LAT RIGHT RADIOLOGIC EXAMINATION FEMUR MINIMUM 2 VIEWS Maco Rivera PA-C [address] [place] [address] [place] [address] Referral ID Status Reason Start Date Expiration Date Visits Requested Visits Authorized [id number] New Request Auto-Generat ed Referral 08/28/2024 09/27/2025 1 1 * Diagnostic Procedure Only (Routine) - New Request Specialty Diagnoses / Procedures Referred By Contac t Referred To Contact XR IMAGING Diagnoses Pain in right hip Procedures XR PELVIS 1V AP RADIOLOGIC EXAMINATION PELVIS 1/2 VIEWS Maco Rivera PA-C [address] [place] [address] [place] [address] Referral ID Status Reason Start Date Expiration Date Visits Requested Visits Authorized [id number] New Request Auto-Generat ed Referral 08/28/2024 09/27/2025 1 1 [facility] for referral (narrative)No reason for referral information availableWMercer [facility] Work Phone: Reason for visit Narrative* Diagnostic Procedure Only (Routine) - Closed Specialty Diagnoses / Procedures Referred By Contac t Referred To Contact XR IMAGING Diagnoses Right knee pain, unspecified chronicity Procedures XR KNEE INJURY 4V AP/LAT/OBLS RIGHT RADIOLOGIC EXAM KNEE COMPLETE 4/MORE VIEWS Ra Whatley PA-C [address] [place] [address] [place] [address] Referral ID Status Reason Start Date Expiration Date V isits Requested Visits Authorized [id number] Closed Auto-Generate d Referral 03/12/2024 04/11/2025 1 1 [facility] for visit Narrative* Diagnostic Procedure Only (Routine) - Closed Specialty Diagnoses / Procedures Referred By Contac t Referred To Contact XR IMAGING Diagnoses Right knee pain, unspecified chronicity Procedures XR KNEE INJURY 4V AP/LAT/OBLS RIGHT RADIOLOGIC EXAM KNEE COMPLETE 4/MORE VIEWS Ra Whatley PA-C [address] [place] [address] [place] [address] Referral ID Status Reason Start Date Expiration Date V isits Requested Visits Authorized [id number] Closed Auto-Generate d Referral 02/18/2024 03/19/2025 1 1 [facility] for visit Narrative* Diagnostic Procedure Only (Routine) - Closed Specialty Diagnoses / Procedures Referred By Contac t Referred To Contact XR IMAGING Diagnoses Acute right ankle pain Procedures XR ANKLE GENERAL 3V AP/LAT/OBL RIGHT RADEX ANKLE COMPLETE MINIMUM 3 VIEWS Nupur De La Rosa MD [address] [address] [place] [address] Referral ID Status Reason Start Date Expiration Date V isits Requested Visits Authorized [id number] Closed Auto-Generate d Referral 02/13/2024 03/14/2025 1 1 [facility] for visit Narrative* Diagnostic Procedure Only (Routine) - Closed Specialty Diagnoses / Procedures Referred By Contac t Referred To Contact XR IMAGING Diagnoses 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 Procedures XR TIBIA FIBULA 2V AP/LAT RIGHT RADIOLOGIC EXAMINATION TIBIA & FIBULA 2 VIEWS Alexus Mendez, [employer] [address] [place] [address] [place] [address] Referral ID Status Reason Start Date Expiration Date V isits Requested Visits Authorized [id number] Closed Auto-Generate d Referral 11/08/2023 12/07/2024 1 1 [facility] for visit Narrative* Diagnostic Procedure Only (Routine) - Closed Specialty Diagnoses / Procedures Referred By Contac t Referred To Contact XR IMAGING Diagnoses Acute right ankle pain Procedures XR ANKLE GENERAL 3V AP/LAT/OBL RIGHT RADEX ANKLE COMPLETE MINIMUM 3 VIEWS Nupur De La Rosa MD [address] [address] [place] [address] Referral ID Status Reason Start Date Expiration Date V isits Requested Visits Authorized [id number] Closed Auto-Generate d Referral 05/07/2024 06/06/2025 1 1 [facility] for visit Narrative* Diagnostic Procedure Only (Routine) - Closed Specialty Diagnoses / Procedures Referred By Contac t Referred To Contact XR IMAGING Diagnoses Pain Procedures XR ANKLE GENERAL 3V AP/LAT/OBL RIGHT RADEX ANKLE COMPLETE MINIMUM 3 VIEWS Ra Whatley PA-C [address] [place] [address] [place] [address] Referral ID Status Reason Start Date Expiration Date V isits Requested Visits Authorized [id number] Closed Auto-Generate d Referral 06/05/2024 07/05/2025 1 1 [facility] for visit Narrative* Diagnostic Procedure Only (Routine) - Closed Specialty Diagnoses / Procedures Referred By Contac t Referred To Contact XR IMAGING Diagnoses Pain in right hip Procedures XR PELVIS 1V AP RADIOLOGIC EXAMINATION PELVIS 1/2 VIEWS Maco Rivera PA-C [address] [place] [address] [place] [address] Referral ID Status Reason Start Date Expiration Date V isits Requested Visits Authorized [id number] Closed Auto-Generate d Referral 08/28/2024 09/27/2025 1 1 [facility] for visit Narrative* Diagnostic Procedure Only (Routine) - Closed Specialty Diagnoses / Procedures Referred By Contac t Referred To Contact XR IMAGING Diagnoses Status post total replacement of right hip Procedures XR FEMUR GENERAL 2V AP/LAT RIGHT RADIOLOGIC EXAMINATION FEMUR MINIMUM 2 VIEWS Maco Rivera PA-C [address] [place] [address] Phone: tel: fax: [place] [address] Referral ID Status Reason Start Date Expiration Date V isits Requested Visits Authorized [id number] Closed Auto-Generate d Referral 11/12/2024 12/12/2025 1 1 [facility] for visit Narrative* Diagnostic Procedure Only (Routine) - Closed Specialty Diagnoses / Procedures Referred By Contac t Referred To Contact MOLECULAR & FUNCTIONAL IMAGING Diagnoses Pain of right hip Procedures NM BONE 3 PHASE BONE &/JOINT IMAGING 3 PHASE STUDY Nupur De La Rosa MD [address] [address] Phone: tel: fax: Molecular Imaging [address] [place] [address] Phone: tel: Referral ID Status Reason Start Date Expiration Date V isits Requested Visits Authorized [id number] Closed Auto-Generate d Referral 11/14/2024 12/14/2025 1 1 [facility] Summary Purpose Family History No Family History Records Found Relationship Condition Age at Onset Recorded Date/T jocelynn father Coronary artery disease Unknown mother Coronary artery disease Unknown Advance Directives No Advanced Directives Records Found Date Activated Date Inactivated Comments 01/15/2025 3:07 PM 01/16/2025 1:26 PM Question Answer Comments Full Code Order Discussed With: Patient Date Activated Date Inactivated Comments 01/03/2023 8:38 AM 01/04/2023 11:41 PM Question Answer Comments Full Code Order Discussed With: Patient Date Activated Date Inactivated Comments 04/27/2022 12:53 PM 05/08/2022 5:19 PM Question Answer Comments Full Code Order Discussed With: Patient Date Activated Date Inactivated Comments 04/09/2019 11:26 AM 04/23/2022 1:50 AM Latest Code Status on File Code Status Date Activated Date Inactivated Comments Full Code 2020 7:02 AM Latest Code Status on File Code Status Date Activated Date Inactivated Comments Full Code 2020 7:02 AM 2020 2:06 PM Documents on File Type Date Recorded 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 Advance Directive(s) 03/23/2019 8:23 PM Latest Code Status on File Code Status Date Activated Date Inactivated Comments Full Code 04/09/2019 11:26 AM Latest Code Status on File Code Status Date Activated Date Inactivated Comments Full Code 04/27/2022 12:53 PM 05/08/2022 5:19 PM Full Code Order Discussed With: Patient Full Code 04/09/2019 11:26 AM 04/23/2022 1:50 AM Latest Code Status on File Code Status Date Activated Date Inactivated Comments Full Code 04/27/2022 12:53 PM 05/08/2022 5:19 PM Full Code 04/09/2019 11:26 AM 04/23/2022 1:50 AM Latest Code Status on File Code Status Date Activated Date Inactivated Comments Full Code 01/03/2023 8:38 AM 01/04/2023 11:41 PM Full Code 04/27/2022 12:53 PM 05/08/2022 5:19 PM Latest Code Status on File Code Status Date Activated Date Inactivated Comments Full Code 01/03/2023 8:38 AM 01/04/2023 11:41 PM Question Answer Comments Full Code Order Discussed With: Patient Code Status History Code Status Date Activated Date Inactivated Comments Full Code 04/27/2022 12:53 PM 05/08/2022 5:19 PM Question Answer Comments Full Code Order Discussed With: Patient Full Code 04/09/2019 11:26 AM 04/23/2022 1:50 AM Date Activated Date Inactivated Comments 01/03/2023 8:38 AM 01/04/2023 11:41 PM Question Answer Comments Full Code Order Discussed With: Patient Date Activated Date Inactivated Comments 04/27/2022 12:53 PM 05/08/2022 5:19 PM Question Answer Comments Full Code Order Discussed With: Patient Date Activated Date Inactivated Comments 04/09/2019 11:26 AM 04/23/2022 1:50 AM Date Activated Date Inactivated Comments 01/03/2023 8:38 AM 01/04/2023 11:41 PM Date Activated Date Inactivated Comments 04/27/2022 12:53 PM 05/08/2022 5:19 PM Date Activated Date Inactivated Comments 04/09/2019 11:26 AM 04/23/2022 1:50 AM Advance Directive Response Recorded Date/ Time Living Will No December 11, 2024 2:16pm Do you have a Healthcare Power of Hand Grinder? No December 11, 2024 2:16pm Advance Directives No June 16, 2015 4:05pm Advance Directive Response Recorded Date/ Time Living Will No December 11, 2024 7:31pm Do you have a Healthcare Power of Hand Grinder? No December 11, 2024 7:31pm Advance Directives No June 16, 2015 4:05pm Advance Directive Response Recorded Date/ Time Living Will No December 11, 2024 7:31pm Do you have a Healthcare Power of Hand Grinder? No December 11, 2024 7:31pm Do you have a Healthcare Power of Hand Grinder? No December 22, 2024 6:54pm Do you have a Healthcare Power of Hand Grinder? No January 06, 2025 6:20pm Do you have a Healthcare Power of Hand Grinder? Yes December 29, 2024 4:02pm Advance Directives No June 16, 2015 4:05pm Hospital Course Note [facility] Patient Name: VALENTE QUINONES [employer] Date of : [address] [address] Unit Number: [id number] Number: [id number] Summary Patient Status: DIS INAttending Doctor: Jensen Peguero DOService Date: 07/23/18 1301Discharge SummaryAdmit DateAdmission Date Time: 07/17/18 0600Anticipated Discharge Date 07/22/18inal Dx/Problem List1. IDDM (insulin dependent diabetes mellitus)Chronic2. Coronary artery diseaseChronic3. Chronic renal disease, stage III4. Hyperlipidemia5. HypertensionChronic6. Systolic heart failureChronic7. ArthritisChronicChief Complaint/HPIright hip painReason for AdmissionScheduled removal of right cephallomedullary nail and right total hip arthroplastyOperations/ProceduresRemoval of cephallomedullary nail and right total hip arthroplastyHospital CoursePatient is a 62-year-old male who presented to [facility] on 07/17/2018 for ascheduled cephallomedullary nail removal and right total hip arthroplasty by (more content not included)... Note HNO ID: [id number] Author: Wallace Marcial Service: Hospital Medicine Author Type: Physician Type: Discharge Summary Filed: 04/07/2019 3:21 PM Note Text: DISCHARGE SUMMARY PATIENT NAME: Mauri Quinones ADMISSION DATE: 03/23/2019 DISCHARGE DATE: 04/07/2019 ATTENDING PHYSICIAN: Ortega Timmons Code Status: Not on file Highest Readmission Risk Score: 63 The 30 day readmissions risk score is derived from an internally validated risk model which evaluates patient level characteristics, utilization history, medication orders and lab results up until the day of discharge. Patients with a score of 40 or above are considered highest risk for readmission. Specific patient level drivers will be listed at the bottom of the summary. REASON FOR HOSPITALIZATION: Neck pain, GARRET, hyperkalemia, generalized Weakness/debility, Diabetes mellitus, ankylosing spondylitis. DIAGNOSIS: Neck pain, GARRET, hyperkalemia, generalized Weakness/debility, Diabetes mellitus, ankylosing spondylitis. Ruled Out O (more content not included)... Discharge Instructions * Instructions* Kaya Coleman, RN - 11/03/2020 CONTINUE ASPIRIN DO NOT TAKE THE MORNING OF SURGERY METOLAZONE BUMETANIDE * Attachments The following attachments cannot be sent through Care Everywhere. * Hemodialysis Vascular Access ([place]izen [place]) * Hemodialysis: Vascular Access Surgery: General Info ([place]) documented in this encounter* Instructions* Candice Tellez PA-C - 2020 Blood Thinner Medication: You may be prescribed a blood thinning medication before or after your procedure. It is important to start taking or resume your current medication as instructed by your doctor. Cholesterol (Statin): You may be prescribed a cholesterol medication known as a statin. It is important to take this medication as instructed by your doctor. One common side effect of this type of medication is muscle aches. If this occurs, you should stop taking it. Pain Control: You may be prescribed an opiate pain medication after your procedure. These are otherwise known as narcotics and should be taken only as prescribed. DO NOT operate a vehicle, heavy machinery, appliances, or drink alcohol while on this medication. For additional pain/swelling relief, you may ice andelevate the surgical site(s). Note: It is normal to have a certain degree of pain after an operation. Our office is only able to prescribe pain medications within a short period after surgery with few exceptions. Due to certain limitations, prescriptions may need to be picked up in person. If requiring a refill over a weekend, we ask that you please call our office before 1:00pm on Sunday. Constipation: One of the side effects of opiate medications is constipation. We recommend that patients take precautions to prevent this: 1. Drink plenty of water (6-8 glasses of 8 oz. per day). 2. Avoid alcohol or excessive caffeine. 3. Eat plenty of fiber (fruits, vegetables and whole grains). 4. Take an over the counter stool softener (Colace or Miralax) as instructed on the bottle. You cantake this each day that you continue to take opiates. Nausea: Some pain medications may cause you to feel nauseous. If this occurs, you can call your doctor who may prescribe anti-nausea medication as needed. Diet: Resume low-fat, low cholesterol diet high in vegetables. Make sure to include protein with each meal while recovering from surgery. If you are on a specific type of diet for your condition, please resume that instead. Activity: 1. DO NOT lift anything over 10 pounds for 6 weeks on your operative limb. 2. DO NOT perform blood pressure checks or allow IV's to be placed in your operative limb. 3. You may slowly resume normal activities as tolerated with certain restrictions. Drivin. DO NOT operate a motor vehicle unless released by your doctor 2. DO NOT operate a motor vehicle if you are still on pain medicine 3. DO NOT operate a motor vehicle unless you can safely press the gas and brake safely, even under emergency conditions. Dressing and Wound Care Instructions: 1. You will be sent home with a bandage over any operative sites. These can be removed 48 hours after your surgery. 2. Underneath, you will find Steri-Strips or skin glue over any incisions. After 1 week, you may carefully remove the Steri-Strips or leave them on to be removed at your first post-op visit. 3. If you had a nerve block , please continue to use a sling until you have regained sensation/movement in your arm. Some mild numbness and pain can be normal but you should call our office if this persists for >24 hours. 4. DO NOT apply lotions, peroxide or alcohol. You may wash your incision or shower with soap and water after 72 hours. Rinse and pat dry. 5. DO NOT use baths, hot tubs, and pools unless told otherwise. This can increase your risk of infection. Emergency: 1. Call 911 if you develop sudden chest pain or shortness of breath. 2. If you develop signs of infection, you should call our office as soon as possible. These include: redness, warmth, severe swelling, pus-like drainage, and fever of >100 degrees Fahrenheit. Additional Note: Some grafts are able to be used relatively soon after surgery. While your own natural vein is preferred and can last longer, fistulas can take several weeks to mature and grow large enough for reliable dialysis access. If you have any additional questions about your surgery, please call our office. 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 difficile colitis Gastrointestinal hemorrhage, unspecified gastrointestinal hemorrhage type Procedures CONSULT TO GASTROENTEROLOGY OFFICE/OUTPATIENT [facility] 60-74 MINUTES Rigoberto Gould MD [address] [place] [address] Referral ID Status Reason Start Date Expiration Date Visits Requested Visits Authorized [id number] Authorized PCP Requested Referral 2 06/05/2023 1 1 Specialty Diagnoses / Procedures Referred By Contac t Referred To Contact Aditya Davis PA-C [address] [id number] Referral ID Status Reason Start Date Expiration Date Visits Re quested Visits Authorized [id number] Closed 1 1 Specialty Diagnoses / Procedures Referred By Contac t Referred To Contact Gastroenterology Diagnoses C. difficile diarrhea Procedures CONSULT TO GASTROENTEROLOGY OFFICE/OUTPATIENT [facility] 60-74 MINUTES Rigoberto Gould MD [address] [place] [address] Referral ID Status Reason Start Date Expiration Date Visits Requested Visits Authorized [id number] Authorized PCP Requested Referral 2 07/26/2023 1 1 Specialty Diagnoses / Procedures Referred By Contac t Referred To Contact General Surgery Diagnoses 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 Procedures CONSULT TO GENERAL SURGERY OFFICE/OUTPATIENT [facility] 60 MINUTES Alexus Mendez APRN.POPCORN MACHINE OPERATOR [address] [place] [address] Referral ID Status Reason Start Date Expiration Date Visits Requested Visits Authorized [id number] Authorized PCP Requested Referral 11/08/2023 11/07/2024 1 1 Specialty Diagnoses / Procedures Referred By Contwero t Referred To Contact XR IMAGING Diagnoses 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 Procedures XR TIBIA FIBULA 2V AP/LAT RIGHT RADIOLOGIC EXAMINATION TIBIA & FIBULA 2 VIEWS Alexus Mendez, SQL TECH.POPCORN MACHINE OPERATOR [address] [facility] [place] [address] [place] [address] Referral ID Status Reason Start Date Expiration Date V isits Requested Visits Authorized [id number] Closed Auto-Generate d Referral 11/08/2023 12/07/2024 1 1 Health Concerns Infection Onset Date Last Indicated Resolved Time COVID-19 Rule-Out 04/23/2022 04/23/2022 04/23/2022 5:34 AM EDT COVID-19 Rule-Out 05/06/2022 05/06/2022 05/06/2022 9:06 PM EDT Infection Onset Date Last Indicated Resolved Time C. difficile 06/30/2022 06/30/2022 Infection Onset Date Last Indicated Resolved Time C. difficile 06/30/2022 06/30/2022 Infection Onset Date Last Indicated Resolved Time COVID-19 Rule-Out 05/06/2022 05/06/2022 05/06/2022 9:06 PM EDT C. difficile 06/30/2022 06/30/2022 Infection Onset Date Last Indicated Resolved Time C. difficile 06/30/2022 06/30/2022 01/01/2023 2:21 PM EDT Chief Complaint and Reason for Visit Chief Complaint Admit Date 9 M FU October 28, 2024 12:5 2pm HF EXAC, HYPERKALEMIA December 11, 2024 4 :45pm n/v December 11, 2024 4:5 2pm n/v December 11, 2024 5:5 3pm Reason for Visit Admit Date Atherosclerosis of [place]onary artery of [place] heart without angina October 28, 2024 12:52pm DM2 (diabetes mellitus, type 2) October 12:52pm Essential hypertension October 28, 2024 1 2:52pm Ischemic cardiomyopathy October 28, 2024 12:52pm Pure hypercholesterolemia October 28 12:52pm Valvular heart disease October 28, 2024 1 2:52pm Acute hyperkalemia December 11, 2024 4:4 5pm Acute uremia December 11, 2024 4:4 5pm End-stage renal disease on hemodialysis December 11, 2024 4:45pm Fluid overload December 11, 2024 4:4 5pm History of ischemic cardiomyopathy December 11, 2024 4:45pm Hyponatremia December 11, 2024 4:4 5pm Paroxysmal atrial fibrillation November 4:45pm Chief Complaint Admit Date 9 M October 28, 2024 12:5 2pm HF EXAC, HYPERKALEMIA December 11, 2024 4 :45pm n/v December 11, 2024 4:5 2pm n/v December 11, 2024 5:5 3pm HF EXAC, HYPERKALEMIA December 12, 2024 7 :59am HF EXAC, HYPERKALEMIA December 12, 2024 8 :59am HF EXAC, HYPERKALEMIA December 13, 2024 9 :44am HF EXAC, HYPERKALEMIA December 13, 2024 1 :33pm Reason for Visit Admit Date Atherosclerosis of [place]onary artery of [place] heart without angina October 28, 2024 12:52pm DM2 (diabetes mellitus, type 2) October 12:52pm Essential hypertension October 28, 2024 1 2:52pm Ischemic cardiomyopathy October 28, 2024 12:52pm Pure hypercholesterolemia October 28 12:52pm Valvular heart disease October 28, 2024 1 2:52pm Acute hyperkalemia December 11, 2024 4:4 5pm Acute uremia December 11, 2024 4:4 5pm End-stage renal disease on hemodialysis December 11, 2024 4:45pm Fluid overload December 11, 2024 4:4 5pm History of ischemic cardiomyopathy December 11, 2024 4:45pm Hyponatremia December 11, 2024 4:4 5pm Paroxysmal atrial fibrillation November 4:45pm Hx of CABG December 11, 2024 4:4 5pm Ischemic cardiomyopathy December 11, 2024 4:45pm Chief Complaint Admit Date 9 M October 28, 2024 12:5 2pm HF EXAC, HYPERKALEMIA December 11, 2024 4 :45pm n/v December 11, 2024 4:5 2pm n/v December 11, 2024 5:5 3pm HF EXAC, HYPERKALEMIA December 12, 2024 7 :59am HF EXAC, HYPERKALEMIA December 12, 2024 8 :59am HF EXAC, HYPERKALEMIA December 13, 2024 9 :44am HF EXAC, HYPERKALEMIA December 13, 2024 1 :33pm UNABLE TO EMPTY BLADDER December 22, 2024 6:21pm S/P [facility] 12/12 AFIB December 26, 2024 12:56p m , UNABLE TO URINATE December 29, 2024 3:14 pm fall January 06, 2025 6:05p m Reason for Visit Admit Date Atherosclerosis of [place]onary artery of [place] heart without angina October 28, 2024 12:52pm DM2 (diabetes mellitus, type 2) October 12:52pm Essential hypertension October 28, 2024 1 2:52pm Ischemic cardiomyopathy October 28, 2024 12:52pm Pure hypercholesterolemia October 28 12:52pm Valvular heart disease October 28, 2024 1 2:52pm Acute hyperkalemia December 11, 2024 4:4 5pm Acute uremia December 11, 2024 4:4 5pm End-stage renal disease on hemodialysis December 11, 2024 4:45pm History of ischemic cardiomyopathy December 11, 2024 4:45pm Hyponatremia December 11, 2024 4:4 5pm Hx of CABG December 11, 2024 4:4 5pm Ischemic cardiomyopathy December 11, 2024 4:45pm Fluid overload December 11, 2024 4:4 5pm Paroxysmal atrial fibrillation November 4:45pm Persistent atrial fibrillation December 26, 2024 12:56pm Atherosclerosis of [place]onary artery of [place] heart without angina December 26, 2024 12:56pm Essential hypertension December 26, 2024 12: 56pm Ischemic cardiomyopathy December 26, 2024 12 :56pm Pure hypercholesterolemia December 26, 2024 12:56pm Valvular heart disease December 26, 2024 12: 56pm Additional Source Comments (unrecognized sect ion and content) No Status Records FoundNo Status Records FoundNo Status Records FoundNo Status Records FoundNo Status Records FoundNo Status Records FoundNo Status Records FoundNo Status Records FoundNo Status Records FoundNo Status Records FoundNo Status Records Found INFORMATION SOURCE (unrecogn ized section and content) DATE CREATED AUTHOR 06/27/2018 [facility] ([place]) DATE CREATED AUTHOR AUTHOR'S ORGANIZ ATION 08/04/2018 [facility] [place] DATE CREATED AUTHOR AUTHOR'S ORGANIZ ATION 04/07/2019 [facility] DATE CREATED AUTHOR AUTHOR'S ORGANIZ ATION 07/18/2019 [facility] DATE CREATED AUTHOR AUTHOR'S ORGANIZ ATION 03/11/2021 [facility] DATE CREATED AUTHOR AUTHOR'S ORGANIZ ATION 03/15/2022 [facility] DATE CREATED AUTHOR AUTHOR'S ORGANIZ ATION 04/07/2023 [facility] DATE CREATED AUTHOR AUTHOR'S ORGANIZ ATION 04/25/2023 [facility] DATE CREATED AUTHOR AUTHOR'S ORGANIZ ATION 01/21/2025 [facility] DATE CREATED AUTHOR AUTHOR'S ORGANIZ ATION 01/23/2025 [facility] DATE CREATED AUTHOR AUTHOR'S ORGANIZ ATION 01/24/2025 [facility] Ordered Prescriptions (unrec ognized section and content) Prescription Sig Dispensed Refills Start Date End Da te HYDROcodone-acetaminophe n (NORCO) 5-325 MG per tabletIndications:Chroni c kidney disease, stage IV (severe) (HCC) Take 1 tablet by mouth every 6 hours as needed for Pain for up to 5 days. Intended supply: 5 days. Take lowest dose possible to manage pain 20 tablet 0 2020 11/10/2020 oxyCODONE-acetaminophen (PERCOCET) 5-325 MG per tabletIndications:Chroni c kidney disease, stage IV (severe) (HCC) Take 1 tablet by mouth every 6 hours as needed for Pain for up to 5 days. Intended supply: 5 days. Take lowest dose possible to manage pain 20 tablet 0 2020 2020 Source Comments (unrecognize d section and content) In the event this informatio n is protected by the Federal Confidentiality of Alcohol and Drug Abuse Patient Records regulations: The Federal rules restrict any use of the information to criminally investigate or prosecute any alcohol or drug abuse patient.[facility] the event this information is protected by the Federal Confidentiality of Alcohol and Drug Abuse Patient Records regulations: The Federal rules restrict any use of the information to criminally investigate or prosecute any alcohol or drug abuse patient.[facility] HospitalIn the event this information is protected by the Federal Confidentiality of Alcohol and Drug Abuse Patient Records regulations: The Federal rules restrict any use of the information to criminally investigate or prosecute any alcohol or drug abuse patient.[facility]In the event this information is protected by the Federal Confidentiality of Alcohol and Drug Abuse Patient Records regulations: The Federal rules restrict any use of the information to criminally investigate or prosecute any alcohol or drug abuse patient.[facility] HospitalIn the event this information is protected by the Federal Confidentiality of Alcohol and Drug Abuse Patient Records regulations: The Federal rules restrict any use of the information to criminally investigate or prosecute any alcohol or drug abuse patient.[facility] HospitalIn the event this information is protected by the Federal Confidentiality of Alcohol and Drug Abuse Patient Records regulations: The Federal rules restrict any use of the information to criminally investigate or prosecute any alcohol or drug abuse patient.[facility] HospitalIn the event this information is protected by the Federal Confidentiality of Alcohol and Drug Abuse Patient Records regulations: The Federal rules restrict any use of the information to criminally investigate or prosecute any alcohol or drug abuse patient.[facility] HospitalIn the event this information is protected by the Federal Confidentiality of Alcohol and Drug Abuse Patient Records regulations: The Federal rules restrict any use of the information to criminally investigate or prosecute any alcohol or drug abuse patient.[facility] HospitalIn the event this information is protected by the Federal Confidentiality of Alcohol and Drug Abuse Patient Records regulations: The Federal rules restrict any use of the information to criminally investigate or prosecute any alcohol or drug abuse patient.[facility] HospitalIn the event this information is protected by the Federal Confidentiality of Alcohol and Drug Abuse Patient Records regulations: The Federal rules restrict any use of the information to criminally investigate or prosecute any alcohol or drug abuse patient.[facility] HospitalIn the event this information is protected by the Federal Confidentiality of Alcohol and Drug Abuse Patient Records regulations: The Federal rules restrict any use of the information to criminally investigate or prosecute any alcohol or drug abuse patient.[facility] HospitalIn the event this information is protected by the Federal Confidentiality of Alcohol and Drug Abuse Patient Records regulations: The Federal rules restrict any use of the information to criminally investigate or prosecute any alcohol or drug abuse patient.[facility] HospitalIn the event this information is protected by the Federal Confidentiality of Alcohol and Drug Abuse Patient Records regulations: The Federal rules restrict any use of the information to criminally investigate or prosecute any alcohol or drug abuse patient.[facility] HospitalIn the event this information is protected by the Federal Confidentiality of Alcohol and Drug Abuse Patient Records regulations: The Federal rules restrict any use of the information to criminally investigate or prosecute any alcohol or drug abuse patient.[facility] HospitalIn the event this information is protected by the Federal Confidentiality of Alcohol and Drug Abuse Patient Records regulations: The Federal rules restrict any use of the information to criminally investigate or prosecute any alcohol or drug abuse patient.[facility] HospitalIn the event this information is protected by the Federal Confidentiality of Alcohol and Drug Abuse Patient Records regulations: The Federal rules restrict any use of the information to criminally investigate or prosecute any alcohol or drug abuse patient.[facility] HospitalIn the event this information is protected by the Federal Confidentiality of Alcohol and Drug Abuse Patient Records regulations: The Federal rules restrict any use of the information to criminally investigate or prosecute any alcohol or drug abuse patient.[facility] HospitalIn the event this information is protected by the Federal Confidentiality of Alcohol and Drug Abuse Patient Records regulations: The Federal rules restrict any use of the information to criminally investigate or prosecute any alcohol or drug abuse patient.[facility] HospitalIn the event this information is protected by the Federal Confidentiality of Alcohol and Drug Abuse Patient Records regulations: The Federal rules restrict any use of the information to criminally investigate or prosecute any alcohol or drug abuse patient.[facility] HospitalIn the event this information is protected by the Federal Confidentiality of Alcohol and Drug Abuse Patient Records regulations: The Federal rules restrict any use of the information to criminally investigate or prosecute any alcohol or drug abuse patient.[facility] HospitalIn the event this information is protected by the Federal Confidentiality of Alcohol and Drug Abuse Patient Records regulations: The Federal rules restrict any use of the information to criminally investigate or prosecute any alcohol or drug abuse patient.[facility] HospitalIn the event this information is protected by the Federal Confidentiality of Alcohol and Drug Abuse Patient Records regulations: The Federal rules restrict any use of the information to criminally investigate or prosecute any alcohol or drug abuse patient.[facility] HospitalIn the event this information is protected by the Federal Confidentiality of Alcohol and Drug Abuse Patient Records regulations: The Federal rules restrict any use of the information to criminally investigate or prosecute any alcohol or drug abuse patient.[facility] HospitalIn the event this information is protected by the Federal Confidentiality of Alcohol and Drug Abuse Patient Records regulations: The Federal rules restrict any use of the information to criminally investigate or prosecute any alcohol or drug abuse patient.[facility] HospitalIn the event this information is protected by the Federal Confidentiality of Alcohol and Drug Abuse Patient Records regulations: The Federal rules restrict any use of the information to criminally investigate or prosecute any alcohol or drug abuse patient.[facility] HospitalIn the event this information is protected by the Federal Confidentiality of Alcohol and Drug Abuse Patient Records regulations: The Federal rules restrict any use of the information to criminally investigate or prosecute any alcohol or drug abuse patient.[facility] HospitalIn the event this information is protected by the Federal Confidentiality of Alcohol and Drug Abuse Patient Records regulations: The Federal rules restrict any use of the information to criminally investigate or prosecute any alcohol or drug abuse patient.[facility] HospitalIn the event this information is protected by the Federal Confidentiality of Alcohol and Drug Abuse Patient Records regulations: The Federal rules restrict any use of the information to criminally investigate or prosecute any alcohol or drug abuse patient.[facility] HospitalIn the event this information is protected by the Federal Confidentiality of Alcohol and Drug Abuse Patient Records regulations: The Federal rules restrict any use of the information to criminally investigate or prosecute any alcohol or drug abuse patient.[facility] HospitalIn the event this information is protected by the Federal Confidentiality of Alcohol and Drug Abuse Patient Records regulations: The Federal rules restrict any use of the information to criminally investigate or prosecute any alcohol or drug abuse patient.[facility] HospitalIn the event this information is protected by the Federal Confidentiality of Alcohol and Drug Abuse Patient Records regulations: The Federal rules restrict any use of the information to criminally investigate or prosecute any alcohol or drug abuse patient.[facility] HospitalIn the event this information is protected by the Federal Confidentiality of Alcohol and Drug Abuse Patient Records regulations: The Federal rules restrict any use of the information to criminally investigate or prosecute any alcohol or drug abuse patient.[facility] HospitalIn the event this information is protected by the Federal Confidentiality of Alcohol and Drug Abuse Patient Records regulations: The Federal rules restrict any use of the information to criminally investigate or prosecute any alcohol or drug abuse patient.[facility] HospitalIn the event this information is protected by the Federal Confidentiality of Alcohol and Drug Abuse Patient Records regulations: The Federal rules restrict any use of the information to criminally investigate or prosecute any alcohol or drug abuse patient.[facility] HospitalIn the event this information is protected by the Federal Confidentiality of Alcohol and Drug Abuse Patient Records regulations: The Federal rules restrict any use of the information to criminally investigate or prosecute any alcohol or drug abuse patient.[facility] HospitalIn the event this information is protected by the Federal Confidentiality of Alcohol and Drug Abuse Patient Records regulations: The Federal rules restrict any use of the information to criminally investigate or prosecute any alcohol or drug abuse patient.[facility] HospitalIn the event this information is protected by the Federal Confidentiality of Alcohol and Drug Abuse Patient Records regulations: The Federal rules restrict any use of the information to criminally investigate or prosecute any alcohol or drug abuse patient.[facility] HospitalIn the event this information is protected by the Federal Confidentiality of Alcohol and Drug Abuse Patient Records regulations: The Federal rules restrict any use of the information to criminally investigate or prosecute any alcohol or drug abuse patient.[facility] HospitalIn the event this information is protected by the Federal Confidentiality of Alcohol and Drug Abuse Patient Records regulations: The Federal rules restrict any use of the information to criminally investigate or prosecute any alcohol or drug abuse patient.[facility] HospitalIn the event this information is protected by the Federal Confidentiality of Alcohol and Drug Abuse Patient Records regulations: The Federal rules restrict any use of the information to criminally investigate or prosecute any alcohol or drug abuse patient.[facility] HospitalIn the event this information is protected by the Federal Confidentiality of Alcohol and Drug Abuse Patient Records regulations: The Federal rules restrict any use of the information to criminally investigate or prosecute any alcohol or drug abuse patient.[facility] HospitalIn the event this information is protected by the Federal Confidentiality of Alcohol and Drug Abuse Patient Records regulations: The Federal rules restrict any use of the information to criminally investigate or prosecute any alcohol or drug abuse patient.[facility] HospitalIn the event this information is protected by the Federal Confidentiality of Alcohol and Drug Abuse Patient Records regulations: The Federal rules restrict any use of the information to criminally investigate or prosecute any alcohol or drug abuse patient.[facility] HospitalIn the event this information is protected by the Federal Confidentiality of Alcohol and Drug Abuse Patient Records regulations: The Federal rules restrict any use of the information to criminally investigate or prosecute any alcohol or drug abuse patient.[facility] HospitalIn the event this information is protected by the Federal Confidentiality of Alcohol and Drug Abuse Patient Records regulations: The Federal rules restrict any use of the information to criminally investigate or prosecute any alcohol or drug abuse patient.[facility] HospitalIn the event this information is protected by the Federal Confidentiality of Alcohol and Drug Abuse Patient Records regulations: The Federal rules restrict any use of the information to criminally investigate or prosecute any alcohol or drug abuse patient.[facility] HospitalIn the event this information is protected by the Federal Confidentiality of Alcohol and Drug Abuse Patient Records regulations: The Federal rules restrict any use of the information to criminally investigate or prosecute any alcohol or drug abuse patient.[facility] HospitalIn the event this information is protected by the Federal Confidentiality of Alcohol and Drug Abuse Patient Records regulations: The Federal rules restrict any use of the information to criminally investigate or prosecute any alcohol or drug abuse patient.[facility] HospitalIn the event this information is protected by the Federal Confidentiality of Alcohol and Drug Abuse Patient Records regulations: The Federal rules restrict any use of the information to criminally investigate or prosecute any alcohol or drug abuse patient.[facility] HospitalIn the event this information is protected by the Federal Confidentiality of Alcohol and Drug Abuse Patient Records regulations: The Federal rules restrict any use of the information to criminally investigate or prosecute any alcohol or drug abuse patient.[facility] HospitalIn the event this information is protected by the Federal Confidentiality of Alcohol and Drug Abuse Patient Records regulations: The Federal rules restrict any use of the information to criminally investigate or prosecute any alcohol or drug abuse patient.[facility] HospitalIn the event this information is protected by the Federal Confidentiality of Alcohol and Drug Abuse Patient Records regulations: The Federal rules restrict any use of the information to criminally investigate or prosecute any alcohol or drug abuse patient.[facility] HospitalIn the event this information is protected by the Federal Confidentiality of Alcohol and Drug Abuse Patient Records regulations: The Federal rules restrict any use of the information to criminally investigate or prosecute any alcohol or drug abuse patient.[facility] HospitalIn the event this information is protected by the Federal Confidentiality of Alcohol and Drug Abuse Patient Records regulations: The Federal rules restrict any use of the information to criminally investigate or prosecute any alcohol or drug abuse patient.[facility] HospitalIn the event this information is protected by the Federal Confidentiality of Alcohol and Drug Abuse Patient Records regulations: The Federal rules restrict any use of the information to criminally investigate or prosecute any alcohol or drug abuse patient.[facility] HospitalIn the event this information is protected by the Federal Confidentiality of Alcohol and Drug Abuse Patient Records regulations: The Federal rules restrict any use of the information to criminally investigate or prosecute any alcohol or drug abuse patient.[facility] HospitalIn the event this information is protected by the Federal Confidentiality of Alcohol and Drug Abuse Patient Records regulations: The Federal rules restrict any use of the information to criminally investigate or prosecute any alcohol or drug abuse patient.[facility] HospitalIn the event this information is protected by the Federal Confidentiality of Alcohol and Drug Abuse Patient Records regulations: The Federal rules restrict any use of the information to criminally investigate or prosecute any alcohol or drug abuse patient.[facility] HospitalIn the event this information is protected by the Federal Confidentiality of Alcohol and Drug Abuse Patient Records regulations: The Federal rules restrict any use of the information to criminally investigate or prosecute any alcohol or drug abuse patient.[facility] HospitalIn the event this information is protected by the Federal Confidentiality of Alcohol and Drug Abuse Patient Records regulations: The Federal rules restrict any use of the information to criminally investigate or prosecute any alcohol or drug abuse patient.[facility] HospitalIn the event this information is protected by the Federal Confidentiality of Alcohol and Drug Abuse Patient Records regulations: The Federal rules restrict any use of the information to criminally investigate or prosecute any alcohol or drug abuse patient.[facility] HospitalIn the event this information is protected by the Federal Confidentiality of Alcohol and Drug Abuse Patient Records regulations: The Federal rules restrict any use of the information to criminally investigate or prosecute any alcohol or drug abuse patient.[facility] HospitalIn the event this information is protected by the Federal Confidentiality of Alcohol and Drug Abuse Patient Records regulations: The Federal rules restrict any use of the information to criminally investigate or prosecute any alcohol or drug abuse patient.[facility] HospitalIn the event this information is protected by the Federal Confidentiality of Alcohol and Drug Abuse Patient Records regulations: The Federal rules restrict any use of the information to criminally investigate or prosecute any alcohol or drug abuse patient.[facility] HospitalIn the event this information is protected by the Federal Confidentiality of Alcohol and Drug Abuse Patient Records regulations: The Federal rules restrict any use of the information to criminally investigate or prosecute any alcohol or drug abuse patient.[facility] HospitalIn the event this information is protected by the Federal Confidentiality of Alcohol and Drug Abuse Patient Records regulations: The Federal rules restrict any use of the information to criminally investigate or prosecute any alcohol or drug abuse patient.[facility] HospitalIn the event this information is protected by the Federal Confidentiality of Alcohol and Drug Abuse Patient Records regulations: The Federal rules restrict any use of the information to criminally investigate or prosecute any alcohol or drug abuse patient.[facility] HospitalIn the event this information is protected by the Federal Confidentiality of Alcohol and Drug Abuse Patient Records regulations: The Federal rules restrict any use of the information to criminally investigate or prosecute any alcohol or drug abuse patient.[facility] HospitalIn the event this information is protected by the Federal Confidentiality of Alcohol and Drug Abuse Patient Records regulations: The Federal rules restrict any use of the information to criminally investigate or prosecute any alcohol or drug abuse patient.[facility] HospitalIn the event this information is protected by the Federal Confidentiality of Alcohol and Drug Abuse Patient Records regulations: The Federal rules restrict any use of the information to criminally investigate or prosecute any alcohol or drug abuse patient.[facility] HospitalIn the event this information is protected by the Federal Confidentiality of Alcohol and Drug Abuse Patient Records regulations: The Federal rules restrict any use of the information to criminally investigate or prosecute any alcohol or drug abuse patient.[facility] HospitalIn the event this information is protected by the Federal Confidentiality of Alcohol and Drug Abuse Patient Records regulations: The Federal rules restrict any use of the information to criminally investigate or prosecute any alcohol or drug abuse patient.[facility] HospitalIn the event this information is protected by the Federal Confidentiality of Alcohol and Drug Abuse Patient Records regulations: The Federal rules restrict any use of the information to criminally investigate or prosecute any alcohol or drug abuse patient.[facility] HospitalIn the event this information is protected by the Federal Confidentiality of Alcohol and Drug Abuse Patient Records regulations: The Federal rules restrict any use of the information to criminally investigate or prosecute any alcohol or drug abuse patient.[facility] HospitalIn the event this information is protected by the Federal Confidentiality of Alcohol and Drug Abuse Patient Records regulations: The Federal rules restrict any use of the information to criminally investigate or prosecute any alcohol or drug abuse patient.[facility] HospitalIn the event this information is protected by the Federal Confidentiality of Alcohol and Drug Abuse Patient Records regulations: The Federal rules restrict any use of the information to criminally investigate or prosecute any alcohol or drug abuse patient.[facility] HospitalIn the event this information is protected by the Federal Confidentiality of Alcohol and Drug Abuse Patient Records regulations: The Federal rules restrict any use of the information to criminally investigate or prosecute any alcohol or drug abuse patient.[facility] HospitalIn the event this information is protected by the Federal Confidentiality of Alcohol and Drug Abuse Patient Records regulations: The Federal rules restrict any use of the information to criminally investigate or prosecute any alcohol or drug abuse patient.[facility] HospitalIn the event this information is protected by the Federal Confidentiality of Alcohol and Drug Abuse Patient Records regulations: The Federal rules restrict any use of the information to criminally investigate or prosecute any alcohol or drug abuse patient.[facility] HospitalIn the event this information is protected by the Federal Confidentiality of Alcohol and Drug Abuse Patient Records regulations: The Federal rules restrict any use of the information to criminally investigate or prosecute any alcohol or drug abuse patient.[facility] HospitalIn the event this information is protected by the Federal Confidentiality of Alcohol and Drug Abuse Patient Records regulations: The Federal rules restrict any use of the information to criminally investigate or prosecute any alcohol or drug abuse patient.[facility] HospitalIn the event this information is protected by the Federal Confidentiality of Alcohol and Drug Abuse Patient Records regulations: The Federal rules restrict any use of the information to criminally investigate or prosecute any alcohol or drug abuse patient.[facility] HospitalIn the event this information is protected by the Federal Confidentiality of Alcohol and Drug Abuse Patient Records regulations: The Federal rules restrict any use of the information to criminally investigate or prosecute any alcohol or drug abuse patient.[facility] HospitalIn the event this information is protected by the Federal Confidentiality of Alcohol and Drug Abuse Patient Records regulations: The Federal rules restrict any use of the information to criminally investigate or prosecute any alcohol or drug abuse patient.[facility] HospitalIn the event this information is protected by the Federal Confidentiality of Alcohol and Drug Abuse Patient Records regulations: The Federal rules restrict any use of the information to criminally investigate or prosecute any alcohol or drug abuse patient.[facility] HospitalIn the event this information is protected by the Federal Confidentiality of Alcohol and Drug Abuse Patient Records regulations: The Federal rules restrict any use of the information to criminally investigate or prosecute any alcohol or drug abuse patient.[facility] Reason for Visit (unrecogniz ed section and content) Reason Comments Lab Orders Reason Comments Discussion discontinuing oxygen Reason Comments Kidney Recipient Evaluation Specialty Diagnoses / Procedures Referred By Mariel metz Referred To Contact Transplant / Transplant Surgery Diagnoses virtual video Procedures PRE NEW PATIENT Oumou Hayes, SQL TECH-GUN FERTILIZER [address] [employer] [facility] [place] [address] Samra Smith MD [address] [place] [address] Referral ID Status Reason Start Date Expiration Date V isits Requested Visits Authorized [id number] Pending Review 03/06/2022 03/31/2023 1 1 Reason Comments Patient Question Reason Comments Hospital F/U Reason Comments Patient Update Reason Comments Results Reason Comments FYI-PT plan of care Reason Comments Medication Problem Reason Comments Follow Up Reason Comments Referral Request Reason Comments Admit to [facility] Reason Comments Cough Chest congestion, ST x3 days Reason Comments Lump Small, soft bump bel ow right knee. 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 Reason Comments Follow Up Reason Comments Follow Up 3 month exam Reason Onset Date Comments Refill Request 07/04/2024 Reason Comments Medication Problem Reason Comments Rx Refills Reason Comments Patient Update Patient Question Reason Comments Acute Visit Diarrhea and vomitin g for 1 week, starting to subside. No fever Reason Comments New Pain Reason Comments Rash Reason Comments FYI-No Action Needed Reason Comments Home Health Orders Reason Comments Established Patient Pain Hip Replacement Reason Onset Date Comments Transition Of Care 12/15/2024 TCM Initial H ospital Discharge-OON Reason Comments urine retention Reason Comments ER F/U Hospital F/U Reason Comments Referral Request Reason Comments Urinary Retention Currently on dialysi s (4 years) have not urinated in 7 days, recent bladder scan Reason Onset Date Comments Transition Of Care 01/08/2025 Reach in Reason Comments CIC Clarification Reason Comments Urinary Retention Care Teams (unrecognized sec tion and content) Injection Molding Operator Relationship Specialty Start Date End Date Aditya Davis PA-C [address] [place], [place] [id number] PCP - General Family Practice 09/24/17 Lee Chacon [address] [place] [id number] Cardiology 05/16/17 Rigoberto Gould MD [address] [facility] [place], [place] [id number] Home Care Physician Family Practice 04/08/19 Injection Molding Operator Relationship Specialty Start Date End Date Aditya Davis PA-C [address] [facility] [place], [place] [id number] PCP - General Family Practice 09/24/17 Lee Chacon [address] [place] [address] Cardiology 05/16/17 Rigoberto Gould MD [address] [place] [address] Home Care Physician Family Practice 04/08/19 Injection Molding Operator Relationship Specialty Start Date End Date Aditya Davis PA-C [address] [facility] [place] [address] PCP - General Family Practice 09/24/17 Lee Chacon [address] [place] [address] Cardiology 05/16/17 Rigoberto Gould MD [address] [facility] [place] [address] Home Care Physician Family Practice 04/08/19 Injection Molding Operator Relationship Specialty Start Date End Date Rigoberto Gould MD [address] [facility] [address] [place] [address] PCP - General Family Medicine 03/06/22 Injection Molding Operator Relationship Specialty Start Date End Date Aditya Davis PA-C [address] [facility] [place] [address] PCP - General Family Practice 09/24/17 Lee Chacon [address] [place] [address] Cardiology 05/16/17 Rigoberto Gould MD [address] [facility] [place] [address] Home Care Physician Family Practice 04/08/19 Injection Molding Operator Relationship Specialty Start Date End Date Aditya Davis PA-C [address] [facility] [place] [address] PCP - General Family Medicine 09/24/17 Lee Chacon [address] [place] [address] Cardiology 05/16/17 Rigoberto Guold MD [address] [facility] [place] [address] Home Care Provider Family Medicine 04/08/19 Injection Molding Operator Relationship Specialty Start Date End Date Aditya Davis PA-C [address] [facility] [place] [address] PCP - General Family Medicine 09/24/17 Lee Chacon [address] [place] [address] Cardiology 05/16/17 Rigoberto Gould MD [address] [facility] [place] [address] Home Care Provider Family Medicine 04/08/19 Injection Molding Operator Relationship Specialty Start Date End Date Aditya Davis PA-C [address] [facility] [place] [address] PCP - General Family Medicine 09/24/17 Lee Chacon [address] [place] [address] Cardiology 05/16/17 Rigoberto Gould MD [address] [facility] [place] [address] Home Care Provider Family Medicine 04/08/19 Injection Molding Operator Relationship Specialty Start Date End Date Aditya Davis PA-C [address] [facility] [place] [address] PCP - General Family Medicine 09/24/17 Lee Chacon [address] [place] [address] Cardiology 05/16/17 Rigoberto Gould MD [address] [facility] [place] [address] Home Care Provider Family Medicine 04/08/19 Injection Molding Operator Relationship Specialty Start Date End Date Aditya Davis PA-C [address] [facility] [place] [address] PCP - General Family Medicine 09/24/17 Lee Chacon [address] [place] [address] Cardiology 05/16/17 Rigoberto Gould MD [address] [facility] [place] [address] Home Care Provider Family Medicine 04/08/19 Injection Molding Operator Relationship Specialty Start Date End Date Aditya Davis PA-C [address] [facility] [place] [address] PCP - General Family Medicine 09/24/17 Lee Chacon [address] [place] [address] Cardiology 05/16/17 Rigoberto Gould MD [address] [facility] [place] [address] Home Care Provider Family Medicine 04/08/19 Injection Molding Operator Relationship Specialty Start Date End Date Aditya Davis PA-C [address] [facility] [place] [address] PCP - General Family Medicine 09/24/17 Lee Chacon [address] [place] [address] Cardiology 05/16/17 Rigoberto Gould MD [address] [facility] [place] [address] Home Care Provider Family Medicine 04/08/19 Injection Molding Operator Relationship Specialty Start Date End Date Rigoberto Gould MD [address] [facility] [place] [address] PCP - General Family Medicine 07/31/22 Lee Chacon [address] [facility] [address] [place] [address] Cardiology 05/16/17 Rigoberto Gould MD [address] [facility] [place] [address] Home Care Provider Family Medicine 04/08/19 Injection Molding Operator Relationship Specialty Start Date End Date Aditya Davis PA-C [address] [facility] [place] [address] PCP - General Family Medicine 09/24/17 07/30/22 Rigoberto Gould MD [address] [facility] [place] [address] PCP - General Family Medicine 07/31/22 Lee Chacon [address] [place] [address] Cardiology 05/16/17 Rigoberto Gould MD [address] [facility] [place] [address] Home Care Provider Family Medicine 04/08/19 Injection Molding Operator Relationship Specialty Start Date End Date Aditya Davis PA-C [address] [facility] [place] [address] PCP - General Family Medicine 09/24/17 07/30/22 Rigoberto Gould MD [address] [facility] [place] [address] PCP - General Family Medicine 07/31/22 Lee Chacon [address] [place] [address] Cardiology 05/16/17 Rigoberto Gould MD [address] [facility] [place] [address] Home Care Provider Family Medicine 04/08/19 Injection Molding Operator Relationship Specialty Start Date End Date Rigoberto Gould MD [address] [facility] [place] [address] PCP - General Family Medicine 07/31/22 Lee Chacon [address] [place] [address] Cardiology 05/16/17 Rigoberto Gould MD [address] [facility] [place] [address] Home Care Provider Family Medicine 04/08/19 Injection Molding Operator Relationship Specialty Start Date End Date Rigoberto Gould MD [address] [facility] [place] [address] PCP - General Family Medicine 07/31/22 Lee Chacon [address] [place] [address] Cardiology 05/16/17 Rigoberto Gould MD [address] [facility] [place] [address] Home Care Provider Family Medicine 04/08/19 Injection Molding Operator Relationship Specialty Start Date End Date Rigoberto Gould MD [address] [facility] [place] [address] PCP - General Family Medicine 07/31/22 Lee Chacon [address] [place] [address] Cardiology 05/16/17 Rigoberto Gould MD [address] [place] [address] Home Care Provider Family Medicine 04/08/19 Injection Molding Operator Relationship Specialty Start Date End Date Rigoberto Gould MD [address] [place] [address] PCP - General Family Medicine 07/31/22 Lee Chacon MD [address] [place] [address] Cardiology 05/16/17 Rigoberto Gould MD [address] [place] [address] Home Care Provider Family Medicine 04/08/19 Injection Molding Operator Relationship Specialty Start Date End Date Rigoberto Gould MD [address] [place] [address] PCP - General Family Medicine 07/31/22 Lee Chacon MD [address] [address] Cardiology 05/16/17 Rigoberto Gould MD [address] [place] [address] Home Care Provider Family Medicine 04/08/19 Injection Molding Operator Relationship Specialty Start Date End Date Rigoberto Gould MD [address] [place] [address] PCP - General Family Medicine 07/31/22 Lee Chacon MD [address] [place] [address] Cardiology 05/16/17 Rigoberto Gould MD [address] [place] [address] Home Care Provider Family Medicine 04/08/19 Injection Molding Operator Relationship Specialty Start Date End Date Rigoberto Gould MD [address] [place] [address] PCP - General Family Medicine 07/31/22 Lee Chacon MD [address] [address] Cardiology 05/16/17 Rigoberto Gould MD [address] [place] [address] Home Care Provider Family Medicine 04/08/19 Injection Molding Operator Relationship Specialty Start Date End Date Rigoberto Gould MD [address] [place] [address] PCP - General Family Medicine 07/31/22 Lee Chacon MD [address] [address] Cardiology 05/16/17 Rigoberto Gould MD [address] [place] [address] Home Care Provider Family Medicine 04/08/19 Injection Molding Operator Relationship Specialty Start Date End Date Rigoberto Gould MD [address] [facility] [place] [address] PCP - General Family Medicine 07/31/22 Lee Chacon MD [address] [place] [address] Cardiology 05/16/17 Rigoberto Gould MD [address] [facility] [place] [address] Home Care Provider Family Medicine 04/08/19 Injection Molding Operator Relationship Specialty Start Date End Date Rigoberto Gould MD [address] [facility] [place] [address] PCP - General Family Medicine 07/31/22 Lee Chacon MD [address] [place] [address] Cardiology 05/16/17 Rigoberto Gould MD [address] [facility] [place] [address] Home Care Provider Family Medicine 04/08/19 Injection Molding Operator Relationship Specialty Start Date End Date Rigoberto Gould MD [address] [facility] [place] [address] PCP - General Family Medicine 07/31/22 Lee Chacon MD [address] [place] [address] Cardiology 05/16/17 Rigoberto Gould MD [address] [facility] [place] [address] Home Care Provider Family Medicine 04/08/19 Injection Molding Operator Relationship Specialty Start Date End Date Rigoberto Gould MD [address] [facility] [place] [address] PCP - General Family Medicine 07/31/22 Lee Chacon MD [address] [place] [address] Cardiology 05/16/17 Rigoberto Gould MD [address] [facility] [place] [address] Home Care Provider Family Medicine 04/08/19 Injection Molding Operator Relationship Specialty Start Date End Date Rigoberto Gould MD [address] [facility] [place] [address] PCP - General Family Medicine 07/31/22 Lee Chacon MD [address] [place] [address] Cardiology 05/16/17 Rigoberto Gould MD [address] [facility] [place] [address] Home Care Provider Family Medicine 04/08/19 Injection Molding Operator Relationship Specialty Start Date End Date Rigoberto Gould MD [address] [facility] [place] [address] PCP - General Family Medicine 07/31/22 Lee Chacon MD [address] [place] [address] Cardiology 05/16/17 Rigoberto Gould MD [address] [facility] [place] [address] Home Care Provider Family Medicine 04/08/19 Injection Molding Operator Relationship Specialty Start Date End Date Rigoberto Gould MD [address] [facility] [place] [address] PCP - General Family Medicine 07/31/22 Lee Chacon MD [address] [place] [address] Cardiology 05/16/17 Rigoberto Gould MD [address] [facility] [place] [address] Home Care Provider Family Medicine 04/08/19 Injection Molding Operator Relationship Specialty Start Date End Date Rigoberto Gould MD [address] [facility] [place] [address] PCP - General Family Medicine 07/31/22 Lee Chacon MD [address] [place] [address] Cardiology 05/16/17 Rigoberto Gould MD [address] [facility] [place] [address] Home Care Provider Family Medicine 04/08/19 Injection Molding Operator Relationship Specialty Start Date End Date Rigoberto Gould MD [address] [facility] [place] [address] PCP - General Family Medicine 07/31/22 Lee Chacon MD [address] [place] [address] Cardiology 05/16/17 Rigoberto Gould MD [address] [place] [address] Home Care Provider Family Medicine 04/08/19 Injection Molding Operator Relationship Specialty Start Date End Date Rigoberto Gould MD [address] [place] [address] PCP - General Family Medicine 07/31/22 Lee Chacon MD [address] [place] [address] Cardiology 05/16/17 Rigoberto Gould MD [address] [place] [address] Home Care Provider Family Medicine 04/08/19 Injection Molding Operator Relationship Specialty Start Date End Date Rigoberto Gould MD [address] [place] [address] PCP - General Family Medicine 07/31/22 Lee Chacon MD [address] [place] [address] Cardiology 05/16/17 Rigoberto Gould MD [address] [place] [address] Home Care Provider Family Medicine 04/08/19 Injection Molding Operator Relationship Specialty Start Date End Date Rigoberto Gould MD [address] [place] [address] PCP - General Family Medicine 07/31/22 Lee Chacon MD [address] [place] [address] Cardiology 05/16/17 Rigoberto Gould MD [address] [facility] [place] [address] Home Care Provider Family Medicine 04/08/19 Injection Molding Operator Relationship Specialty Start Date End Date Rigoberto Gould MD [address] [facility] [place] [address] PCP - General Family Medicine 07/31/22 Lee Chacon MD [address] [place] [address] Cardiology 05/16/17 Rigoberto Gould MD [address] [facility] [place] [address] Home Care Provider Family Medicine 04/08/19 Injection Molding Operator Relationship Specialty Start Date End Date Rigoberto Gould MD 17[address] [facility] [place] [address] PCP - General Family Medicine 07/31/22 Lee Chacon MD [address] [place] [address] Cardiology 05/16/17 Rigoberto Gould MD [address] [facility] [place] [address] Home Care Provider Family Medicine 04/08/19 Injection Molding Operator Relationship Specialty Start Date End Date Rigoberto Gould MD [address] [facility] [place] [address] PCP - General Family Medicine 07/31/22 Lee Chacon MD [address] [place] [address] Cardiology 05/16/17 Rigoberto Gould MD [address] [place] [address] Home Care Provider Family Medicine 04/08/19 Injection Molding Operator Relationship Specialty Start Date End Date Rigoberto Gould MD [address] [place] [address] PCP - General Family Medicine 07/31/22 Lee Chacon MD [address] [place] [address] Cardiology 05/16/17 Rigoberto Gould MD [address] [place] [address] Home Care Provider Family Medicine 04/08/19 Injection Molding Operator Relationship Specialty Start Date End Date Rigoberto Gould MD [address] [place] [address] PCP - General Family Medicine 07/31/22 Lee Chacon MD [address] [place] [address] Cardiology 05/16/17 Rigoberto Gould MD [address] [place] [address] Home Care Provider Family Medicine 04/08/19 Cristina Zamudio APRN.GUN FERTILIZER [address] [place] [address] Metallurgical Analyst Family Medicine 08/04/24 Alexus Mendez APRN.GUN FERTILIZER [address] [place] [address] Metallurgical Analyst Family Medicine 08/04/24 Injection Molding Operator Relationship Specialty Start Date End Date Rigoberto Gould MD [address] [place] [address] PCP - General Family Medicine 07/31/22 Lee Chacon MD [address] [place] [address] Cardiology 05/16/17 Rigoberto Gould MD [address] [place] [address] Home Care Provider Family Medicine 04/08/19 Cristina Zamudio APRN.GUN FERTILIZER [address] [place] [address] Metallurgical Analyst Family Medicine 08/04/24 Alexus Mendez SQL TECH.GUN FERTILIZER [address] [facility] [place] [address] Metallurgical Analyst Family Medicine 08/04/24 Injection Molding Operator Relationship Specialty Start Date End Date Rigoberto Gould MD [address] [place] [address] PCP - General Family Medicine 07/31/22 Lee Chacon MD [address] [place] [address] Cardiology 05/16/17 Rigoberto Gould MD [address] [facility] [place] [address] Home Care Provider Family Medicine 04/08/19 Cristina Zamudio APRN.GUN FERTILIZER [address] [facility] [place] [address] Metallurgical Analyst Family Medicine 08/04/24 Alexus Mendez APRN.GUN FERTILIZER [address] [facility] [place] [address] Metallurgical Analyst Family Medicine 08/04/24 Injection Molding Operator Relationship Specialty Start Date End Date Rigoberto Gould MD [address] [facility] [place] [address] PCP - General Family Medicine 07/31/22 Lee Chacon MD [address] [place] [address] Cardiology 05/16/17 Rigoberto Gould MD [address] [facility] [place] [address] Home Care Provider Family Medicine 04/08/19 Cristina Zamudio APRN.GUN FERTILIZER [address] [facility] [place] [address] Metallurgical Analyst Family Medicine 08/04/24 Alexus Mendez SQL TECH.GUN FERTILIZER [address] [facility] [place] [address] Metallurgical Analyst Family Medicine 08/04/24 Injection Molding Operator Relationship Specialty Start Date End Date Rigoberto Gould MD [address] [facility] [place] [address] PCP - General Family Medicine 07/31/22 Lee Chacon MD [address] [facility] [address] [place] [address] Cardiology 05/16/17 Rigoberto Gould MD [address] [facility] [place] [address] Home Care Provider Family Medicine 04/08/19 Cristina Zamudio APRN.GUN FERTILIZER [address] [facility] [place] [address] Metallurgical Analyst Family Medicine 08/04/24 Alexus Mendez SQL TECH.GUN FERTILIZER [address] [facility] [place] [address] Metallurgical Analyst Family Medicine 08/04/24 Injection Molding Operator Relationship Specialty Start Date End Date Rigoberto Gould MD [address] [facility] [place] [address] PCP - General Family Medicine 07/31/22 Lee Chacon MD [address] [facility] [address] [place] [address] Cardiology 05/16/17 Rigoberto Gould MD [address] [facility] [place] [address] Home Care Provider Family Medicine 04/08/19 Cristina Zamudio SQL TECH.GUN FERTILIZER [address] [facility] [place] [address] Metallurgical Analyst Family [facility] 08/04/24 Alexus Mendez SQL TECH.GUN FERTILIZER [address] [facility] [place] [address] Metallurgical Analyst [facility] 08/04/24 Injection Molding Operator Relationship Specialty Start Date End Date Rigoberto Gould MD [address] [facility] [place] [address] PCP - General Family Medicine 07/31/22 Lee Chacon MD [address] [facility] [address] [place] [address] Cardiology 05/16/17 Rigoberto Gould MD [address] [facility] [place] [address] Home Care Provider Family Medicine 04/08/19 Cristina Zamudio, SQL TECH.GUN FERTILIZER [address] [place] [address] [facility]/04/24 Alexus Mendez SQL TECH.GUN FERTILIZER [address] [facility] [place] [address] Metallurgical Analyst Family [facility] 08/04/24 Injection Molding Operator Relationship Specialty Start Date End Date Rigoberto Gould MD [address] [facility] [place] [address] PCP - General Family Medicine 07/31/22 Lee Chacon MD [address] [place] [address] Cardiology 05/16/17 Rigoberto Gould MD [address] [facility] [place] [address] Home Care Provider Family Medicine 04/08/19 Cristina Zamudio APRN.GUN FERTILIZER [address] [place] [address] Metallurgical Analyst Family Medicine 08/04/24 Alexus Mendez APRN.GUN FERTILIZER [address] [facility] [place] [address] Metallurgical Analyst Family [facility] 08/04/24 Injection Molding Operator Relationship Specialty Start Date End Date Rigoberto Gould MD [address] [facility] [place] [address] PCP - General Family Medicine 07/31/22 Lee Chacon MD [address] [place] [address] Cardiology 05/16/17 Rigoberto Gould MD [address] [facility] [place] [address] Home Care Provider Family Medicine 04/08/19 Cristina Zamudio APRN.GUN FERTILIZER [address] [place] [address] Metallurgical Analyst Family Medicine 08/04/24 Alexus Mendez APRN.GUN FERTILIZER [address] [facility] [place] [address] Metallurgical Analyst Family Medicine 08/04/24 Injection Molding Operator Relationship Specialty Start Date End Date Rigoberto Gould MD [address] [facility] [place] [address] PCP - General Family Medicine 07/31/22 Lee Chacon MD [address] [place] [address] Cardiology 05/16/17 Rigoberto Gould MD [address] [place] [address] Home Care Provider Family Medicine 04/08/19 Cristina Zamudio APRN.GUN FERTILIZER [address] [place] [address] Metallurgical Analyst Family Medicine 08/04/24 Alexus Mendez APRN.GUN FERTILIZER [address] [place] [address] Metallurgical Analyst Family Medicine 08/04/24 Injection Molding Operator Relationship Specialty Start Date End Date Rigoberto Gould MD [address] [place] [address] PCP - General Family Medicine 07/31/22 Lee Chacon MD [address] [place] [address] Cardiology 05/16/17 Rigoberto Gould MD [address] [place] [address] Home Care Provider Family Medicine 04/08/19 Cristina Zamudio APRN.GUN FERTILIZER [address] [place] [address] Metallurgical Analyst Family Medicine 08/04/24 Alexus Mendez APRN.GUN FERTILIZER [address] [place] [address] Metallurgical Analyst Family Medicine 08/04/24 Injection Molding Operator Relationship Specialty Start Date End Date Rigoberto Gould MD [address] [place] [address] PCP - General Family Medicine 07/31/22 Lee Chacon MD [address] [place] [address] Cardiology 05/16/17 Rigoberto Gould MD [address] [place] [address] Home Care Provider Family Medicine 04/08/19 Cristina Zamudio APRN.GUN FERTILIZER [address] [place] [address] Metallurgical Analyst [facility] 08/04/24 Alexus Mendez APRN.GUN FERTILIZER [address] [facility] [place] [address] Metallurgical Analyst Family [facility] 08/04/24 Injection Molding Operator Relationship Specialty Start Date End Date Rigoberto Gould MD [address] [facility] [place] [address] PCP - General Family Medicine 07/31/22 Lee Chacon MD [address] [place] [address] Cardiology 05/16/17 Rigoberto Gould MD [address] [facility] [place] [address] Home Care Provider Family Medicine 04/08/19 Cristina Zamudio APRN.GUN FERTILIZER [address] [place] [address] Metallurgical Analyst Family Medicine 08/04/24 Alexus Mendez APRN.GUN FERTILIZER [address] [place] [address] Metallurgical Analyst Family Medicine 08/04/24 11/14/24 Injection Molding Operator Relationship Specialty Start Date End Date Rigoberto Gould MD [address] [place] [address] PCP - General Family Medicine 07/31/22 Lee Chacon MD [address] [place] [address] Cardiology 05/16/17 Rigoberto Gould MD [address] [place] [address] Home Care Provider Family Medicine 04/08/19 Cristina Zamudio APRN.GUN FERTILIZER [address] [place] [address] Metallurgical Analyst Family Medicine 08/04/24 Alexus Mendez SQL TECH.GUN FERTILIZER [address] [place] [address] Metallurgical Analyst Family Medicine 08/04/24 Injection Molding Operator Relationship Specialty Start Date End Date Rigoberto Gould MD [address] [place], [place] [address] PCP - General Family Medicine 07/31/22 Lee Chacon MD [address] [place] [address] Cardiology 05/16/17 Rigoberto Gould MD [address] [facility] [place] [address] Home Care Provider Family Medicine 04/08/19 Cristina Zamudio APRN.GUN FERTILIZER [address] [place] [address] Metallurgical Analyst Family [facility] 08/04/24 Alexus Mendez APRN.GUN FERTILIZER [address] [facility] [place] [address] Metallurgical Analyst Family Medicine 08/04/24 Injection Molding Operator Relationship Specialty Start Date End Date Rigoberto Gould MD [address] [facility] [place] [address] PCP - General Family Medicine 07/31/22 Lee Chacon MD [address] [place] [address] Cardiology 05/16/17 Rigoberto Gould MD [address] [facility] [place] [address] Home Care Provider Family Medicine 04/08/19 Cristina Zamudio APRN.GUN FERTILIZER [address] [place] [address] Metallurgical Analyst Family Medicine 08/04/24 Alexus Mendez SQL TECH.GUN FERTILIZER [address] [facility] [place] [address] Metallurgical Analyst Family [facility] 08/04/24 Injection Molding Operator Relationship Specialty Start Date End Date Rigoberto Gould MD [address] [place], [place] [address] PCP - General Family Medicine 07/31/22 Lee Chacon MD [address] [address] Cardiology 05/16/17 Rigoberto Gould MD [address] [place], [place] [address] Home Care Provider Family Medicine 04/08/19 Cristina Zamudio APRN.GUN FERTILIZER [address] [place], [place] [address] Metallurgical Analyst Family [facility] 08/04/24 Alexus Mendez APRN.GUN FERTILIZER [address] [place], [place] [address] Metallurgical Analyst [facility] 08/04/24 Team Status: Active Member Role Status Dates Dr. Rigoberto Gould MD Primary Care Provider Active Team Status: Inactive Member Role Status Dates Dr. Rigoberto Gould MD Primary Care Provider Active Start: October 28, 2024 End: October 28, 2024 Dr. Rigoberto Gould MD Referring Provider Active Start: October 28, 2024 End: October 28, 2024 Dr. Jensen Claire MD Attending Provider Active Start: October 28, 2024 End: October 28, 2024 Team Status: Active Member Role Status Dates Dr. Rigoberto Gould MD Primary Care Provider Active Start: December 11, 2024 Dr. Rafa Felder MD Emergency Provider Active Sta rt: December 11, 2024 Dr. Mary Jo Granados MD Admit Provider Active St art: December 11, 2024 Dr. Mary Jo Granados MD Attending Provider Active Start: December 11, 2024 Team Status: Active Member Role Status Dates Dr. Rigobreto Gould MD Primary Care Provider Active Start: December 11, 2024 Dr. Rafa Felder MD Emergency Provider Active Sta rt: December 11, 2024 Dr. Mary Jo Granados MD Attending Provider Active Start: December 11, 2024 Team Status: Active Member Role Status Dates Dr. Rigoberto Gould MD Primary Care Provider Active Start: December 11, 2024 Dr. Rafa Felder MD Emergency Provider Active Sta rt: December 11, 2024 Dr. Jensen Claire MD Attending Provider Active Start: December 11, 2024 Injection Molding Operator Relationship Specialty Start Date End Date Rigoberto Gould MD [address] [facility] [place], [place] [address] PCP - General Family Medicine 07/31/22 Lee Chacon MD [address], [place] [address] Cardiology 05/16/17 Rigoberto Gould MD [address] [facility] [place] [address] Home Care Provider Family Medicine 04/08/19 Cristina Zamudio, [place].GUN FERTILIZER [address] [facility], [place] [address] Metallurgical Analyst Family Medicine 08/04/24 Alexus Mendez SQL TECH.GUN FERTILIZER [address] [facility] [place], [place] [address] Metallurgical Analyst Family Medicine 08/04/24 Team Status: Inactive Member Role Status Dates Dr. Rigoberto Gould MD Primary Care Provider Active Start: December 11, 2024 End: December 13, 2024 Dr. Rafa Felder MD Emergency Provider Active Sta rt: December 11, 2024 End: December 13, 2024 Dr. Mary Jo Granados MD Admit Provider Active St art: December 11, 2024 End: December 13, 2024 Dr. Mary Jo Granados MD Other Provider Active St art: December 11, 2024 End: December 13, 2024 Dr. Nata Jackson MD Other Provider Active Start: December 11, 2024 End: December 13, 2024 Dr. Sukumar Restrepo MD Attending Provider Active Start: December 11, 2024 End: December 13, 2024 Team Status: Active Member Role Status Dates Dr. Rigoberto Gould MD Primary Care Provider Active Start: December 12, 2024 Dr. Rafa Felder MD Emergency Provider Active Sta rt: December 12, 2024 Dr. Mary Jo Granados MD Admit Provider Active St art: December 12, 2024 Dr. Mary Jo Granados MD Other Provider Active St art: December 12, 2024 Dr. Nata Jackson MD Other Provider Active Start: December 12, 2024 Dr. Sukumar Restrepo MD Attending Provider Active Start: December 12, 2024 Dr. Sukumar Restrepo MD Other Provider Active Sta rt: December 12, 2024 Team Status: Active Member Role Status Dates Dr. Rigoberto Gould MD Primary Care Provider Active Start: December 12, 2024 Dr. Rafa Felder MD Emergency Provider Active Sta rt: December 12, 2024 Dr. Mary Jo Granados MD Admit Provider Active St art: December 12, 2024 Dr. Mary Jo Granados MD Other Provider Active St art: December 12, 2024 Dr. Nata Jackson MD Other Provider Active Start: December 12, 2024 Dr. Jnesen Claire MD Attending Provider Active Start: December 12, 2024 Team Status: Active Member Role Status Dates Dr. Rigoberto Gould MD Primary Care Provider Active Start: December 12, 2024 Dr. José Miguel Nunez MD Attending Provider Active S tart: December 12, 2024 Team Status: Active Member Role Status Dates Dr. Rigoberto Gould MD Primary Care Provider Active Start: December 13, 2024 Dr. Rafa Felder MD Emergency Provider Active Sta rt: December 13, 2024 Dr. Mary Jo Granados MD Admit Provider Active St art: December 13, 2024 Dr. Mary Jo Granados MD Other Provider Active St art: December 13, 2024 Dr. Nata Jackson MD Other Provider Active Start: December 13, 2024 Dr. Sukumar Restrepo MD Other Provider Active Sta rt: December 13, 2024 Dr. Jensen Claire MD Attending Provider Active Start: December 13, 2024 Team Status: Active Member Role Status Dates Dr. Rigoberto Gould MD Primary Care Provider Active Start: December 13, 2024 Dr. Rafa Felder MD Emergency Provider Active Sta rt: December 13, 2024 Dr. Mary Jo Granados MD Admit Provider Active St art: December 13, 2024 Dr. Mary Jo Granados MD Other Provider Active St art: December 13, 2024 Dr. Nata Jackson MD Other Provider Active Start: December 13, 2024 Dr. Sukumar Restrepo MD Attending Provider Active Start: December 13, 2024 Dr. 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 Rigoberto Gould MD Primary Care Provider Active Start: December 22, 2024 End: December 22, 2024 Dr. Nicho Nelson DO Attending Provider Active Start: December 22, 2024 End: December 22, 2024 Dr. Nicho Nelson DO Emergency Provider Active Start: December 22, 2024 End: December 22, 2024 Team Status: Inactive Member Role Status Dates Dr. Rigoberto Gould MD Primary Care Provider Active Start: December 26, 2024 End: December 26, 2024 Dr. Rigoberto Gould MD Referring Provider Active Start: December 26, 2024 End: December 26, 2024 Florencia GAGNON, PA Attending Provider Active Start: December 26, 2024 End: December 26, 2024 Team Status: Inactive Member Role Status Dates Dr. Rigoberto Gould MD Primary Care Provider Active Start: December 29, 2024 End: December 29, 2024 Dr. Ra Aaron DO Attending Provider Active Start: December 29, 2024 End: December 29, 2024 Dr. Ra Aaron DO Emergency Provider Active Start: December 29, 2024 End: December 29, 2024 Team Status: Inactive Member Role Status Dates Dr. Rigoberto Gould MD Primary Care Provider Active Start: January 06, 2025 End: January 07, 2025 Dr. Ra Aaron DO Emergency Provider Active Start: January 06, 2025 End: January 07, 2025 Goals (unrecognized section and content) Goals may be documented in a n alternate section FOR RECORDS PERTAINING TO PATIENTS WHO ARE OR HAVE BEEN ENROLLED IN A CHEMICAL DEPENDENCY/SUBSTANCEABUSE PROGRAM, SOME INFORMATION MAY BE OMITTED. This clinical summary was aggregated from multiple sources. Caution should be exercised in using it in the provision of clinical care. This summary normalizes information from multiple sources, and as a consequence, information in this document may materially change the coding, format and clinical context of patient data. In addition, data may be omitted in some cases. CLINICAL DECISIONS SHOULD BE BASED ON THE PRIMARY CLINICAL RECORDS. [facility] [employer] [facility]. provides no warranty or guarantee of the accuracy or completeness of information in this document.
[2025-01-28 23:33] LABS: Absolute Neutrophil Count 8.5 X10^3/uL (2.0-7.7); Basophil# 0.05 X10^3/uL; Basophil% 0.4 % (0-1); Eosinophil# 0.04 X10^3/uL; Eosinophils% 0.4 % (0-5); Hematocrit 45.2 % (40-54); Hemoglobin 14.8 g/dL (13.0-16.5); Lymphocyte % 11.4 % (19-41); Mean Corp Hgb Conc 32.7 g/dL (32-36); Mean Corpuscular Volume 97.6 fL (80-94); Mean Platelet Vol. 12.2 fl (6.2-12.0); Monocyte# 1.43 X10^3/uL; Monocyte% 12.6 % (0-10); NRBC Flagged by Analyzer 0.3 % (0-5); Neutrophil # 8.49 X10^3/uL (2.7-7.7); Neutrophil % 74.7 % (47-70); POSITIVE COUNT YES; POSITIVE MORPHOLOGY YES; Platelet Count 93 K/mm3 (150-450); RBC Distribution Width CV 19.8 % (11.6-14.6); RBC Distribution Width SD 66.8 fl (35.1-43.9); Red Blood Count 4.63 M/mm3 (4.6-6.2); White Blood Count 11.4 K/mm3 (4.4-11.0)
--- OUTSIDE RECORDS SUMMARY | 2025-01-28 23:36 | XMS RPT_ITS | CCD ---
Author Organization [facility] Care Team Providers Care Head Machinist Name Role Phone Roof BOX BRANDER, Nick Hernandez Unavailable Pilar WEINBERG, Jocelin Gonsalez Unavailable Unavailable Lee Chacon MD Unavailable Joel WEINBERG, Florencia Delcid Unavailable ARNAUD MILLER Unavailable Unavailable PHYSICIAN, NONE Unavailable [...] Provider Rigoberto Gould MD Primary Care Provider [phone] Lee Chacon Unavailable Aditya Davis PA-C Primary [...] Rigoberto Gould MD Primary Care Provider Haagen LIQUIFIED NATURAL GAS SPECIALIST.ANGIOGRAPHER, Cristina Unavailable Suppan LIQUIFIED NATURAL GAS SPECIALIST.ANGIOGRAPHER, Alexus A Unavailable Suppan LIQUIFIED NATURAL GAS SPECIALIST.ANGIOGRAPHER, Alexus A Unavailable [phone] Suppan LIQUIFIED NATURAL GAS SPECIALIST.ANGIOGRAPHER, Alexus A Unavailable [phone] Suppan LIQUIFIED NATURAL GAS SPECIALIST.ANGIOGRAPHER, Alexus A Unavailable [phone] Dr. Rigoberto Gould MD Primary Care Provider [...] Provider Mayra RASMUSSEN, Dr. Valdez Attending Provider Ivan RASMUSSEN, Dr. [...] Unavailable Ivan, Rigoberto Primary Care Unavailable Nicho Neslon Attending Unavailable Ivan, Rigoberto Primary Care Unavailable Basim Luz Attending Unavailabl e Larwill, Rigoberto Primary Care Unavailable Renetta, Rajnis Consulting Unavailable Ivan, Rigoberto Primary Care Unavailable Lauro, Sukumar Attending Unavailable Mary Jo Granados Admitting Unavailable Mary Jo Granados Consulting Unavailable Jensen Cliare Attending Unavailable Larwill, Rigoberto Primary Care Unavailable José Miguel Nunez Attending Unavailable Larwill, Rigoberto Primary Care Unavailable Jensen Claire Attending Unavailable Larwill, Rigoberto Referring Unavailable Ivan, Rigoberto Primary Care Unavailable Florencia Maier Attending Unavail able Ivan, Rigoberto Primary Care Unavailable Larwill, Rigoberto Referring Unavailable Jensen Claire Attending Unavailable Larwill, Rigoberto Referring Unavailable Ivan, Rigoberto Primary Care Unavailable Jensen Claire Attending Unavailable Renetta, Nata Consulting Unavailable Mary Jo Granados Admitting Unavailable Larwill, Rigoberto Primary Care Unavailable Mary Jo Granados Consulting Unavailable Lauro, Sukumar Attending Unavailable Lauro, Sukumar Consulting Unavailable Mary Jo Granados Attending Unavailable Larwill, Rigoberto Primary Care Unavailable Ra Aaron Attending Unavailable Larwill, Rigoberto Primary Care Unavailable NUPUR DE LA ROSA Attending Unavailable IVAN, [facility] Primary Care Unavailable ALEXUS MENDEZ Attending Unavailable IVAN, RIGOBERTO J Primary Care Unavailable NUPUR DE LA ROSA Attending Unavailable IVAN, RIGOBERTO J Primary Care Unavailable IVAN, RIGOBERTO J Primary Care Unavailable IVAN, RIGOBERTO J Attending Unavailable JENSEN PUCKETT JR Attending Unavaila ble IVAN, RIGOBERTO J Primary Care Unavailable IVAN, [...] (4 sources) pregabalin Drug Allergy 7 Swelling [facility] Work Phone: (20 sources) pregabalin; Translations: [PREGABALIN] Drug Allergy 7 Swelling, Rash [facility] Work Phone: (1 source) pregabalin Drug Allergy 5 [facility] Repository Medications Current Medications Medication Drug Class(es) [...] open type I or II, initial encounter ([facility]) Take 1 tablet by mouth every 4 [...] Indications: Chronic kidney disease, stage IV (severe) ([facility]) Take 1 tablet by mouth every 6 [...] mg by mouth daily at bedtime. B Akexgwq-V-Gwmiy Acid (Nephro-Savanah) 0.8 MG tablet (1 source) B Gtpxtuz-Z-Vikl c Acid (Nephro-[place]) 0.8 MG tablet Take [...] 0 .005 % SOLN as directed LATANOPROST [id number] Florencia Maldonado RN Start: 03-23-2017 take 1 [...] 03/27/2024 Active take 1 capsule by mo [facility] once daily loratadine (CLARITIN) 10 MG capsule [...] Start: 05-25-2017 take 2 tablets by mo [facility] twice daily COREG 3.125 MG TABS two tablet by mouth twice daily CARVEDILOL [id number] Florencia Maldonado RN Start: 05-25-2017 take 1 tablet by gonzales twice daily CARVEDILOL 6.25 MG TABS One tablet by mouth twice daily CARVEDILOL [id number] Nick Larkin NP Comment on above: Take [...] scanning reader (FREESTYLE SERGEI 14 DAY READER) [facility] Indications: Uncontrolled type 2 diabetes mellitus without complication, with long-term current use of insulin 1 Each four times daily. 1 Each 0 04/17/2019 12/02/2021 Discontinued Start: 04-17-2019 flash glucose scanning reader (FREESTYLE SERGEI 14 DAY READER) [facility] Indications: Uncontrolled type 2 diabetes [...] TABS One tablet by mouth daily FUROSEMIDE [id number] Lee Chacon MD gabapentin 300 mg oral [...] UN IT/ML SOLN as directed INSULIN DETEMIR [id number] Florencia Maldonado RN Start: 03-12-2017 End: 06-03-2018 [...] 10/07/2024 10/07/2025 Suspended inject 15 [IU] by espinosa bcutaneous injection at bedtime insulin glargine 100 [...] IT/ML SOLN as directed INSULIN LISPRO (HUMAN) [id number] Florencia Maldonado RN Comment on above: Inject [...] TABS One tablet by mouth daily LISINOPRIL [id number] Florencia Maldonado RN Start: 05-18-2017 take 1 tablet by gonzales th twice daily LISINOPRIL 10 MG TABS One tablet by mouth twice daily LISINOPRIL [id number] Nick Larkin NP Start: 03-14-2017 End: 08-23-2017 take 2 tablets by mouth twice daily LISINOPRIL 5 MG TABS two tablet by mouth twice daily LISINOPRIL [id number] Florencia Maldonado RN Start: 03-14-2017 End: 08-23-2017 [...] and 1 tab at dinner METFORMIN HCL [id number] Florencia Maldonado RN Start: 06-19-2015 End: 08-23-2017 [...] Take 2 Each by mouth once daily. Mv,Ca,Nmd-Uvjj-Yp-Ly copene 1 EACH tablet (2 sources) Start: 06-03-2018 End: 08-02-2018 take 1 tablet by mouth once daily Mv,Ca,Vdp-Plnj-Nk-L ycopene 1 EACH tablet Discontinued 2 NMA PO DAILY June 03, 2018 12:00am August 02, 2018 3:03pm nitroglycerin 0.4 mg sublingual tablet (7 sources) Nitrate Vasodilator Start: 05-18-2017 NITROGLYCERIN 0.4 MG SUBL 1 tablet under the tongue every 5 minutes times 3 as needed for chest pain. NITROGLYCERIN [id number] Florencia Maldonado RN Start: 03-14-2017 End: 06-03-2018 [...] gtts as needed POLYETHYL GLYCOL-PROPYL GLYCOL SOLN [id number] Lee Chacon MD pravastatin sodium 80 mg [...] 0 Active take 3 tablets by mo [facility] once daily as needed sildenafil (REVATIO) 20 [...] One tablet by mouth daily TAMSULOSIN HCL [id number] Florencia Maldonado RN torsemide 20 mg oral [...] Indications: Instability of prosthetic knee, initial encounter ([facility]) ([facility]) Take 1 tablet by mouth two times a day as needed for pain for up to 7 days. 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 01-22-2025 [facility] Telephone (UROLMD) -- MAURI QUINONES ([id number]) [address] [facility] Date Time Provider Department 01/22/25 JENSEN PUCKETT JR UROMARA During your visit today, we recorded the following information about you: Lissette Sanabria RN 01/22/2025 9:24 AM Signed Vandana WEINBERG calling from [employer] calling ([phone]) to clarify if the cath once weekly on was a legitimate order. After reviewing discharge summary from inpatient stay it is a valid order. Milton 5/325 1 tablet before transport to dialysis, [...] tablet by mouth every morning. - Insulin [place], Disposable, (BD ULTRA-FINE GOLDY PEN NEEDLE) 32 [...] and coordination (more content not included)... Normal [facility] Albumin SerPl-mCncon 025 Albumin [Mass/Vol] 3.4 g/dL Low 3.9-4.9 [facility] Comment on above: Order Comment: Speci men Type: BLOOD SPECIMENOrdering Facility: [facility] Address: [address] [place] [address] Performed By: #### 1 751-7, 2777-1, 01163-6 ####[facility] LABORATORYCLIA [id number] [place] [address] [place] Basic metabolic 2000 panelon 01-16-2025 Anion gap [Moles/Vol] 13 mmol/L Normal 8-15 [facility] Comment on above: Order Comment: Speci men Type: BLOOD SPECIMENOrdering Facility: [facility] Address: [address] [place] [address] Performed By: #### 1 751-7, 27702-24, 58596-5 ####ADAM LABORATORYCLIA [id number] [place] [address] [place] Calcium [Mass/Vol] 9.9 mg/dL Normal 8.5-10.2 [facility] Comment on above: Order Comment: Speci men Type: BLOOD SPECIMENOrdering Facility: [facility] Address: [address] [place] [address] Performed By: #### 1 751-7, 27702-24, 93975-1 ####ADAM LABORATORYCLIA [id number] [place] [address] [place] Chloride [Moles/Vol] 91 mmol/L Low 98-107 [facility] Comment on above: Order Comment: Speci men Type: BLOOD SPECIMENOrdering Facility: [facility] Address: [address] [place] [address] Performed By: #### 1 751-7, 2776-08, 18730-2 ####AD[facility] LABORATORYCLIA [id number] [place] [address] [place] CO2 [Moles/Vol] 27 mmol/L Normal 22-30 [facility] Comment on above: Order Comment: Speci men Type: BLOOD SPECIMENOrdering Facility: [facility] Address: [address] [place] [address] Performed By: #### 1 751-7, 2776-08, 03061-3 ####ADAM LABORATORYCLIA [id number] [place] [address] [place] Creatinine [Mass/Vol] 3.66 mg/dL High 0.73-1.22 [facility] Comment on above: Order Comment: Speci men Type: BLOOD SPECIMENOrdering Facility: [facility] Address: [address] [place] [address] Performed By: #### 1 751-7, 27702-24, 57190-7 ####ARBY[facility] LABORATORYCLIA [id number] [place] [address] [place] Creatinine and Glomerular filtration rate.predicted panel (S/P/Bld) 17 mL/min/1.73m??? Low >=60 [facility] Comment on above: Order Comment: Kelsi huff Type: BLOOD SPECIMENOrdering Facility: [facility] Address: [address] [place] [address] Result Comment: Caryl mated Glomerular Filtration Rate [...] GFR. Performed By: #### 1 751-7, 2777-1, 24343-3 ####ARBY[facility] LABORATORYCLIA [id number] [place] [id number] [place] Glucose [Mass/Vol] 109 mg/dL High 74-99 [facility] Comment on above: Order Comment: Kelsi huff Type: BLOOD SPECIMENOrdering Facility: [facility] Address: [address] [place] [address] Result Comment: The [place] Diabetes Association (ADA) provides guidance for cutoff [...] Standards of Medical Care in Diabetes 2016, [place] [employer] Association. Diabetes Care. 2016.39(Suppl 1). Performed By: #### 1 751-7, 2777-1, 97164-3 ####ARBY[facility] LABORATORYCLIA [id number] [place] [address] [place] Potassium [Moles/Vol] 4.4 mmol/L Normal 3.7-5.1 [facility] Comment on above: Order Comment: Speci men Type: BLOOD SPECIMENOrdering Facility: [facility] Address: [address] [place] [address] Performed By: #### 1 751-7, 2777, 65987-7 ####ADAM LABORATORYCLIA [id number] [place] [address] [place] Sodium [Moles/Vol] 131 mmol/L Low 136-144 [facility] Comment on above: Order Comment: Speci men Type: BLOOD SPECIMENOrdering Facility: [facility] Address: [address] [place] [address] Performed By: #### 1 751-7, 27702-24, 43622-2 ####ADAM LABORATORYCLIA [id number] [address] [place] Urea nitrogen [Mass/Vol] 28 mg/dL High 9-24 [facility] Comment on above: Order Comment: Speci men Type: BLOOD SPECIMENOrdering Facility: [facility] Address: [address] [place] [address] Performed By: #### 1 751-7, 27702-24, ####ADAM LABORATORYCLIA [id number] [place] [address] [place] CBC panel Auto (Bld)on 01-16 Erythrocyte distribution width (RBC) [Ratio] 16.2 % High 11.5-15.0 [facility] Comment on above: Order Comment: Speci men Type: BLOOD SPECIMENOrdering Facility: [facility] Address: [address] [place] [address] Performed By: #### 5 8410-2 ####ADAM LABORATORYCLIA [id number] [address] [place] Hematocrit (Bld) [Volume fraction] 36.1 % Low 39.0-51.0 [facility] Comment on above: Order Comment: Speci men Type: BLOOD SPECIMENOrdering Facility: [facility] Address: [address] [place] [address] Performed By: #### 5 8410-2 ####ADAM LABORATORYCLIA [id number] [address] Hemoglobin (Bld) [Mass/Vol] 11.6 g/dL Low 13.0-17.0 [facility] Comment on above: Order Comment: Speci men Type: BLOOD SPECIMENOrdering Facility: [facility] Address: [address] [place] [address] Performed By: #### 5 8410-2 ####ADAM LABORATORYCLIA [id number] [address] MCH (RBC) [Entitic mass] 31.3 pg Normal 26.0-34.0 [facility] Comment on above: Order Comment: Speci men Type: BLOOD SPECIMENOrdering Facility: [facility] Address: [address] [place] [address] Performed By: #### 5 8410-2 ####AD[facility] LABORATORYCLIA [id number] [address] MCHC (RBC) [Mass/Vol] 32.1 g/dL Normal 30.5-36.0 [facility] Comment on above: Order Comment: Speci men Type: BLOOD SPECIMENOrdering Facility: [facility] Address: [address] [place] [address] Performed By: #### 5 8410-2 ####ADAM LABORATORYCLIA [id number] [address] MCV (RBC) [Entitic vol] 97.3 fL Normal 80.0-100.0 [facility] Comment on above: Order Comment: Speci men Type: BLOOD SPECIMENOrdering Facility: [facility] Address: [address] [place] [address] Performed By: #### 5 8410-2 ####ADAM LABORATORYCLIA [id number] [address] Nucleated RBC (Bld) [#/Vol] 10*3/uL Normal <0.01 [facility] Comment on above: Order Comment: Speci men Type: BLOOD SPECIMENOrdering Facility: [facility] Address: [address] [place] [address] Performed By: #### 5 8410-2 ####ADAM LABORATORYCLIA [id number] [address] Platelet mean volume (Bld) [Entitic vol] 9.7 fL Normal 9.0-12.7 [facility] Comment on above: Order Comment: Speci men Type: BLOOD SPECIMENOrdering Facility: [facility] Address: [address] [place] [address] Performed By: #### 5 8410-2 ####ADAM LABORATORYCLIA [id number] [address] [place] Platelets (Bld) [#/Vol] 155 10*3/uL Normal 150-400 [facility] Comment on above: Order Comment: Speci men Type: BLOOD SPECIMENOrdering Facility: [facility] Address: [address] [place] [address] Result Comment: No c lot detected. Performed By: #### 5 8410-2 ####ADAM LABORATORYCLIA [id number] [address] RBC (Bld) [#/Vol] 3.71 10*6/uL Low 4.20-6.00 [facility] Comment on above: Order Comment: Speci men Type: BLOOD SPECIMENOrdering Facility: [facility] Address: [address] [place] [address] Performed By: #### 5 8410-2 ####ADAM LABORATORYCLIA [id number] [address] WBC (Bld) [#/Vol] 7.16 10*3/uL Normal 3.70-11.00 [facility] Comment on above: Order Comment: Speci men Type: BLOOD SPECIMENOrdering Facility: [facility] Address: [address] [place] [address] Performed By: #### 5 8410-2 ####ADAM LABORATORYCLIA [id number] [place] [id number] [facility] [place] CNDSon 01-16-2025 CNDS HNO ID: [id number] Author: EVARISTO DAS MD Service: Hospital Medicine [...] message to return a call to me.Evaristo Das MD January 16, 2025 10:01 AM Admission [...] this will be followed up by the joiner apprentice. Very sensitive to medications and Milton 5/325 1 tablet before each transport to dialysis, catheterization needed every and 1 tablet of the Milton before 30 minutes before that, 1 tablet before transport to the group home facility-1 tablet 30 minutes before physical therapy [...] as tolerated-patient to get 1 tablet of Milton 30 minutes before physical therapy Diet Instructions [...] presents with fall and left hip pain. Milton 5/325 1 tablet before transport to dialysis, [...] with fall an (more content not included)... [facility] CONSULT PROGon 01-16-2025 CONSULT PROG HNO ID: [id number] Author: JOSAFAT LOREDO MD Service: Nephrology Author [...] x 1 dose Hypercalcemia workup ordered Normal [facility] Phosphate [facility] 01-16 Phosphate [Mass/Vol] 5.4 mg/dL High 2.7-4.8 [facility] Comment on above: Order Comment: Speci men Type: BLOOD SPECIMENOrdering Facility: [facility] Address: [address] [place] [address] Performed By: #### 1 751-7, 2777-1, 28645-2 ####ARBY[facility] LABORATORYCLIA [id number] [place] [address] [place] 1,25-dihydroxyvitamin D3 [Ma ss/Vol]on 01-15-2025 VIT D1,25 DIHYDROXY 20.6 pg/mL Normal 19.9-79.3 [facility] Comment on above: Order Comment: Speci men Type: BLOOD SPECIMENOrdering Facility: [facility] Address: [address] [place] [address] Performed By: #### 1 649-3 ####[facility] LABCLIA [id number] [place] [address] [place] Albumin [facility] 025 Albumin [Mass/Vol] 3.5 g/dL Low 3.9-4.9 [facility] Comment on above: Order Comment: Speci men Type: BLOOD SPECIMENOrdering Facility: [facility] Address: [address] [place] [address] Performed By: #### 2 4321-2, 1751-7, 3084-1, 47723-5, 2776-1 ####[facility] LABORATORYCLIA [id number] [place] [address] [place] Basic metabolic 2000 panelon 01-15-2025 Anion gap [Moles/Vol] 16 mmol/L High 8-15 [facility] Comment on above: Order Comment: Speci men Type: BLOOD SPECIMENOrdering Facility: [facility] Address: [address] [place] [address] Performed By: #### 2 4321-2, 1750-7, 3084-1, 40666-1, 2776-1 ####AR[facility] LABORATORYCLIA [id number] [place] [address] [place] Calcium [Mass/Vol] 10.7 mg/dL High 8.5-10.2 [facility] Comment on above: Order Comment: Speci men Type: BLOOD SPECIMENOrdering Facility: [facility] Address: [address] [place] [address] Performed By: #### 2 4321-2, 1750-7, 3084-1, 99285-7, 2776-1 ####AR[facility] LABORATORYCLIA [id number] [address] [place] Chloride [Moles/Vol] 88 mmol/L Low 98-107 [facility] Comment on above: Order Comment: Speci men Type: BLOOD SPECIMENOrdering Facility: [facility] Address: [address] [place] [address] Performed By: #### 2 4321-2, 1750-7, 3084-1, 28381-3, 7-1 ####AR[facility] LABORATORYCLIA [id number] [place] [address] [place] CO2 [Moles/Vol] 26 mmol/L Normal 22-30 [facility] Comment on above: Order Comment: Kelsi huff Type: BLOOD SPECIMENOrdering Facility: [facility] Address: [address] [place] [address] Performed By: #### 2 4321-2, 175-7, 3084-1, 76324-1, 2776-08 ####ARBY[facility] LABORATORYCLIA [id number] [place] [address] [place] Creatinine [Mass/Vol] 5.16 mg/dL High 0.73-1.22 [facility] Comment on above: Order Comment: Kelsi huff Type: BLOOD SPECIMENOrdering Facility: [facility] Address: [address] [place] [address] Performed By: #### 2 4321-2, 1750-7, 3084-1, 07389-6, 2776-08 ####[facility] LABORATORYCLIA [id number] [address] STATES OF [facility] Creatinine and Glomerular filtration rate.predicted panel (S/P/Bld) 12 mL/min/1.73m??? Low >=60 [facility] Comment on above: Order Comment: Kelsi huff Type: BLOOD SPECIMENOrdering Facility: [facility] Address: [address] [place] [address] Result Comment: Caryl mated Glomerular Filtration Rate [...] Performed By: #### 2 4321-2, 1750-7, 3084-1, 65103-6, 2776-08 ####AR[facility] LABORATORYCLIA [id number] [place] [address] [place] Glucose [Mass/Vol] 107 mg/dL High 74-99 [facility] Comment on above: Order Comment: Kelsi daria Type: BLOOD SPECIMENOrdering Facility: [facility] Address: [address] [place] [address] Result Comment: The [place] Diabetes Association (ADA) provides guidance for cutoff [...] Standards of Medical Care in Diabetes 2016, [place] Diabetes Association. Diabetes Care. 2016.39(Suppl 1). Performed By: #### 2 4321-2, 1751-02, 3083-, , 2776-08 ####ARBY[facility] LABORATORYCLIA [id number] [place] [address] [place] Potassium [Moles/Vol] 5.8 mmol/L High 3.7-5.1 [facility] Comment on above: Order Comment: Kelsi huff Type: BLOOD SPECIMENOrdering Facility: [facility] Address: [address] [place] [place] [id number] Performed By: #### 2 4321-2, 1751-02, 3083-08, , 2776-08 ####[facility] LABORATORYCLIA [id number] [place] [address] [place] Sodium [Moles/Vol] 130 mmol/L Low 136-144 [facility] Comment on above: Order Comment: Kelsi huff Type: BLOOD SPECIMENOrdering Facility: [facility] Address: [address] [place] [place] [id number] Performed By: #### 2 4321-2, 7, 3083-08, , 2776-08 ####AD[facility] LABORATORYCLIA [id number] [place] [address] [place] Urea nitrogen [Mass/Vol] 51 mg/dL High 9-24 [facility] Comment on above: Order Comment: Kelsi huff Type: BLOOD SPECIMENOrdering Facility: [facility] Address: [address] [place] [place] [id number] Performed By: #### 2 4321-2, 1751-7, 3084-1, 51535-8, 2777-1 ####[facility] LABORATORYCLIA [id number] [address] CBC panel Auto (Bld)on 01-15 Erythrocyte distribution width (RBC) [Ratio] 16.2 % High 11.5-15.0 [facility] Comment on above: Order Comment: Speci men Type: BLOOD SPECIMENOrdering Facility: [facility] Address: [address] [place] [address] Performed By: #### 5 8410-2 ####AD[facility] LABORATORYCLIA [id number] [address] Hematocrit (Bld) [Volume fraction] 39.5 % Normal 39.0-51.0 [facility] Comment on above: Order Comment: Speci men Type: BLOOD SPECIMENOrdering Facility: [facility] Address: [address] [place] [address] Performed By: #### 5 8410-2 ####[facility] LABORATORYCLIA [id number] [address] Hemoglobin (Bld) [Mass/Vol] 12.6 g/dL Low 13.0-17.0 [facility] Comment on above: Order Comment: Speci men Type: BLOOD SPECIMENOrdering Facility: [facility] Address: [address] [place] [address] Performed By: #### 5 8410-2 ####ADAM LABORATORYCLIA [id number] [address] MCH (RBC) [Entitic mass] 31.2 pg Normal 26.0-34.0 [facility] Comment on above: Order Comment: Speci men Type: BLOOD SPECIMENOrdering Facility: [facility] Address: [address] [place] [address] Performed By: #### 5 8410-2 ####ADAM LABORATORYCLIA [id number] [address] MCHC (RBC) [Mass/Vol] 31.9 g/dL Normal 30.5-36.0 [facility] Comment on above: Order Comment: Speci men Type: BLOOD SPECIMENOrdering Facility: [facility] Address: [facility] [place] [address] Performed By: #### 5 8410-2 ####ADAM LABORATORYCLIA [id number] [place] [address] [place] MCV (RBC) [Entitic vol] 97.8 fL Normal 80.0-100.0 [facility] Comment on above: Order Comment: Speci men Type: BLOOD SPECIMENOrdering Facility: [facility] Address: [address] [place] [address] Performed By: #### 5 8410-2 ####ADAM LABORATORYCLIA [id number] [address] [place] Nucleated RBC (Bld) [#/Vol] 10*3/uL Normal <0.01 [facility] Comment on above: Order Comment: Speci men Type: BLOOD SPECIMENOrdering Facility: [facility] Address: [address] [place] [address] Performed By: #### 5 8410-2 ####ADAM LABORATORYCLIA [id number] [address] STATES [facility] Platelet mean volume (Bld) [Entitic vol] 10.4 fL Normal 9.0-12.7 [facility] Comment on above: Order Comment: Speci men Type: BLOOD SPECIMENOrdering Facility: [facility] Address: [address] [place] [address] Performed By: #### 5 8410-2 ####ADAM LABORATORYCLIA [id number] [place] [address] [place] Platelets (Bld) [#/Vol] 146 10*3/uL Low 150-400 [facility] Comment on above: Order Comment: Speci men Type: BLOOD SPECIMENOrdering Facility: [facility] Address: [address] [place] [address] Performed By: #### 5 8410-2 ####ADAM LABORATORYCLIA [id number] [address] [place] RBC (Bld) [#/Vol] 4.04 10*6/uL Low 4.20-6.00 [facility] Comment on above: Order Comment: Speci men Type: BLOOD SPECIMENOrdering Facility: [facility] Address: [address] [place] [address] Performed By: #### 5 8410-2 ####ADAM LABORATORYCLIA [id number] [address] WBC (Bld) [#/Vol] 8.75 10*3/uL Normal 3.70-11.00 [facility] Comment on above: Order Comment: Speci men Type: BLOOD SPECIMENOrdering Facility: [facility] Address: [address] [place] [address] Performed By: #### 5 8410-2 ####ADAM LABORATORYCLIA [id number] [address] CONSULT PROGon 01-15-2025 CONSULT PROG HNO ID: [id number] Author: JOSAFAT LOREDO MD Service: Nephrology Author [...] x 1 dose Hypercalcemia workup ordered Normal [facility] IMMUNOFIXATION SCREEN, SERUM on 01-15-2025 MPA RESULT No M protein is identified. Normal No M protein is identified. [facility] Comment on above: Order Comment: Speci men Type: BLOOD SPECIMENOrdering Facility: [facility] Address: [address] [place] [id number] Performed By: #### L [id number], [facility] ####[facility] LABCLIA [id number] [place] [address] [place] STAFF REVIEW ([facility] [place]) Reviewed by Aries Young MD, Ph.D ([id number]) Normal [facility] Comment on above: Order Comment: Speci men Type: BLOOD SPECIMENOrdering Facility: [facility] Address: [address] [place] [address] Performed By: #### L [id number], [facility] ####[facility] LABCLIA [id number] [place] [address] [place] KAPPA/AN,FREE,SERon 2024 Immunoglobulin light chains.kappa.free (S) [Mass/Vol] 168.9 mg/L High 3.3-19.4 [facility] Comment on above: Order Comment: [facility] Type: BLOOD SPECIMENOrdering Facility: [facility] Address: [address] [place] [address] Result Comment: Rare ly, increased serum free light chains levels may not be detected or accurately quantified due to prozone phenomenon or in high viscosity samples using this immunoturbidimetric assay. Correlation with other laboratory results and clinical findings is recommended. The [place] Free Light Chain was performed using the Binding Site Optilite immunoturbidimetric method. Result obtained with different assay methods or kits cannot be used interchangeably. Performed By: #### K LFRS ####[facility] LABCLIA [id number] [place] [address] [place] Immunoglobulin light chains.kappa/Immunogl obulin light chains.lambda (S) [Mass ratio] 0.68 Normal 0.26-1.65 [facility] Comment on above: Order Comment: Speci men Type: BLOOD SPECIMENOrdering Facility: [facility] Address: [address] [place] [address] Performed By: #### K LFRS ####[facility] LABCLIA [id number] [place] [address] [place] Immunoglobulin light chains.lambda.free [Mass/Vol] 249.1 mg/L High 5.7-26.3 [facility] Comment on above: Order Comment: Speci men Type: BLOOD SPECIMENOrdering Facility: [facility] Address: [address] [place] [address] Result Comment: Rare ly, increased serum free [...] used interchangeably. Performed By: #### K LFRS ####[facility] LABCLIA [id number] [place] [address] [place] Magnesium SerPl-mCncon 01-15 Magnesium [Mass/Vol] 2.5 mg/dL High 1.7-2.3 [facility] Comment on above: Order Comment: Speci men Type: BLOOD SPECIMENOrdering Facility: [facility] Address: [address] [place] [address] Performed By: #### 2 4321-2, 1751-7, 3084-1, 04605-0, 2777-1 ####ARBYRD LABORATORYCLIA [id number] [address] [place] PROTEIN ELECTROPHORESIS SERU M WITH FLO (P)on 01-15-2025 Albumin [Mass/Vol] 3.26 g/dL Low 3.43-5.41 [facility] Comment on above: Order Comment: Speci men Type: BLOOD SPECIMENOrdering Facility: [facility] Address: [address] [place] [address] Performed By: #### L [id number], IFESC ####[facility] LABCLIA [id number] [place] [address] [place] Alpha 1 globulin Elph [Mass/Vol] 0.45 g/dL High 0.18-0.43 [facility] Comment on above: Order Comment: Speci men Type: BLOOD SPECIMENOrdering Facility: [facility] Address: [address] [place], [place] [address] Performed By: #### L [id number], IFESC ####[facility] LABCLIA [id number] [place] [address] [place] Alpha 2 globulin Elph [Mass/Vol] 0.64 g/dL Normal 0.42-0.98 [facility] Comment on above: Order Comment: Speci men Type: BLOOD SPECIMENOrdering Facility: [facility] Address: [address] [place] [address] Performed By: #### L [id number], IFESC ####[facility] LABCLIA [id number] [place] [address] [place] Beta globulin Elph [Mass/Vol] 0.80 g/dL Normal 0.61-1.17 [facility] Comment on above: Order Comment: Speci men Type: BLOOD SPECIMENOrdering Facility: [facility] Address: [address] [place] [address] Performed By: #### L [id number], IFESC ####[facility] LABCLIA [id number] [place] [address] [place] COMMENT (SERUM PROT ELECTRO) A reflex test for Monoclonal Protein analysis (immunofixation) has been ordered. Normal [facility] Comment on above: Order Comment: Speci men Type: BLOOD SPECIMENOrdering Facility: [facility] Address: [address] [place] [address] Performed By: #### L [id number], IFESC ####[facility] LABCLIA [id number] [place] [id number] [place] Gamma globulin Elph [Mass/Vol] 1.15 g/dL Normal 0.53-1.51 [facility] Comment on above: Order Comment: Speci men Type: BLOOD SPECIMENOrdering Facility: [facility] Address: [address] [place] [address] Performed By: #### L [id number], IFESC ####[facility] LABCLIA [id number] [address] M-PROTEIN LOCATION Normal [facility] Comment on above: Order Comment: Speci men Type: BLOOD SPECIMENOrdering Facility: [facility] Address: [address] [place] [address] Result Comment: Not Applicable. Performed By: #### L [id number], IFESC ####[facility] LABIA [id number] [address] Protein Fractions [Interp] No definitive M protein is identified on protein electrophoresis. Normal No definitive M protein is identified on protein electrophore sis. [facility] Comment on above: Order Comment: Speci men Type: BLOOD SPECIMENOrdering Facility: [facility] Address: [address] [place] [address] Performed By: #### L [id number], IFESC ####[facility] LABIA [id number] [address] [place] Protein.monoclonal Elph [Mass/Vol] 0.00 g/dL Normal <=0.00 [facility] Comment on above: Order Comment: Speci men Type: BLOOD SPECIMENOrdering Facility: [facility] Address: [address] [place] [address] Performed By: #### L [id number], IFESC ####[facility] LABIA [id number] [address] [place] SPE STAFF REVIEW Reviewed by Aries Young MD, Ph.D ([id number]) Normal [facility] Comment on above: Order Comment: Speci men Type: BLOOD SPECIMENOrdering Facility: [facility] Address: [address] [place] [address] Performed By: #### L [id number], IFESC ####[facility] LABCLIA [id number] [place] [id number] [place] Phosphate SerPl-mCncon 01-15 Phosphate [Mass/Vol] 7.7 mg/dL High 2.7-4.8 [facility] Comment on above: Order Comment: Kelsi huff Type: BLOOD SPECIMENOrdering Facility: [facility] Address: [address] [place] [address] Performed By: #### 2 4321-2, 1751-7, 3084-1, 78145-6, 2777-1 ####ARBYRD LABORATORYCLIA [id number] [address] [place] Prot SerPl-mCncon 01-15-2025 Protein [Mass/Vol] 6.3 g/dL Normal 6.3-8.0 [facility] Comment on above: Order Comment: Samanthamarcellus huff Type: BLOOD SPECIMENOrdering Facility: [facility] Address: [address] [place] [address] Performed By: #### 2 885-2 ####[facility] LABCLIA [id number] [address] OF [facility] THERAPY NTon 01-15-2025 THERAPY NT HNO ID: [id number] Author: SONA HILL PT Service: Physical Therapy Author Type: Physical Therapist Type: Therapy (PT/OT/Speech/Resp) Filed: 01/15/2025 09:22 Note Text: -- Summary: PT missed visit -- PHYSICAL THERAPY MISSED VISIT SERVICE DATE: 01/15/2025 SERVICE TIME: 0910 ROOM: [place] [address] ([facility] [id number]) Patient not seen due to Test / Procedure. Patient at dialysis. Will approach as patient appropriate and available. SIGNATURE: Sona Hill PT PATIENT NAME: Mauri Quinones DATE: January 15, 2025 TIME: 9:21 AM Normal [facility] THERAPY NT HNO ID: [id number] Author: FLOYD RIVAS OTR/L Service: Occupational Therapy Author Type: Occupational Therapist Type: Therapy (PT/OT/Speech/Resp) Filed: 01/15/2025 09:10 Note Text: -- Summary: OT missed -- OCCUPATIONAL THERAPY MISSED VISIT SERVICE DATE: 01/15/2025 SERVICE TIME: 0900 ROOM: [place] [address] Patient not seen due to Test / Procedure. Patient preparing to be transferred to dialysis. Will re attempt as schedule permits. SIGNATURE: MITCHELL Raines PATIENT NAME: Mauri Quinones DATE: January 15, 2025 TIME: 9:10 AM [facility] Urate SerPl-mCncon 5 Urate [Mass/Vol] 5.3 mg/dL Normal 4.0-8.1 [facility] Comment on above: Order Comment: Speci men Type: BLOOD SPECIMENOrdering Facility: [facility] Address: [address] [place] [id number] Performed By: #### 2 4321-2, 1751-7, 3084-1, 48396-7, 2777-1 ####ARBYRD LABORATORYCLIA [id number] [place] [address] [place] Basic metabolic 2000 panelon 01-14-2025 Anion gap [Moles/Vol] 17 mmol/L High 8-15 [facility] Comment on above: Order Comment: Speci men Type: BLOOD SPECIMENOrdering Facility: [facility] Address: [address] [place] [address] Performed By: #### 2 4321-2 ####ADAM LABORATORYCLIA [id number] [place] [address] [place] Calcium [Mass/Vol] 10.8 mg/dL High 8.5-10.2 [facility] Comment on above: Order Comment: Speci men Type: BLOOD SPECIMENOrdering Facility: [facility] Address: [address] [place] [address] Performed By: #### 2 4321-2 ####ADAM LABORATORYCLIA [id number] [place] [address] [place] Chloride [Moles/Vol] 89 mmol/L Low 98-107 [facility] Comment on above: Order Comment: Speci men Type: BLOOD SPECIMENOrdering Facility: [facility] Address: [address] [place] [address] Performed By: #### 2 4321-2 ####ADAM LABORATORYCLIA [id number] [place] [address] [place] CO2 [Moles/Vol] 25 mmol/L Normal 22-30 [facility] Comment on above: Order Comment: Speci men Type: BLOOD SPECIMENOrdering Facility: [facility] Address: [address] [place] [address] Performed By: #### 2 4321-2 ####ADAM LABORATORYCLIA [id number] [place] [address] [place] Creatinine [Mass/Vol] 4.42 mg/dL High 0.73-1.22 [facility] Comment on above: Order Comment: Speci men Type: BLOOD SPECIMENOrdering Facility: [facility] Address: [address] [place] [address] Performed By: #### 2 4321-2 ####ADAM LABORATORYCLIA [id number] [place] [id number] [place] Creatinine and Glomerular filtration rate.predicted panel (S/P/Bld) 14 mL/min/1.73m??? Low >=60 [facility] Comment on above: Order Comment: Kelsi huff Type: BLOOD SPECIMENOrdering Facility: [facility] Address: [address] [place] [address] Result Comment: Caryl mated Glomerular Filtration Rate [...] actual GFR. Performed By: #### 2 4321-2 ####ARBYRD LABORATORYCLIA [id number] [place] [address] [place] Glucose [Mass/Vol] 112 mg/dL High 74-99 [facility] Comment on above: Order Comment: Kelsi [facility] Type: BLOOD SPECIMENOrdering Facility: [facility] Address: [address] [place] [address] Result Comment: The [place] Diabetes Association (ADA) provides guidance for cutoff [...] Standards of Medical Care in Diabetes 2016, [place] [employer]. Diabetes Care. 2016.39(Suppl 1). Performed By: #### 2 4321-2 ####ARBYRD LABORATORYCLIA [id number] [place] [address] [place] Potassium [Moles/Vol] 4.9 mmol/L Normal 3.7-5.1 [facility] Comment on above: Order Comment: Speci men Type: BLOOD SPECIMENOrdering Facility: [facility] Address: [address] [place] [address] Performed By: #### 2 4321-2 ####ADAM LABORATORYCLIA [id number] [place] [address] [place] Sodium [Moles/Vol] 131 mmol/L Low 136-144 [facility] Comment on above: Order Comment: Speci men Type: BLOOD SPECIMENOrdering Facility: [facility] Address: [address] [place] [address] Performed By: #### 2 4321-2 ####ADAM LABORATORYCLIA [id number] [place] [address] [place] Urea nitrogen [Mass/Vol] 41 mg/dL High 9-24 [facility] Comment on above: Order Comment: Speci men Type: BLOOD SPECIMENOrdering Facility: [facility] Address: [address] [place] [address] Performed By: #### 2 4321-2 ####ADAM LABORATORYCLIA [id number] [place] [address] [place] Anion gap [Moles/Vol] 16 mmol/L High 8-15 [facility] Comment on above: Order Comment: Speci men Type: BLOOD SPECIMENOrdering Facility: [facility] Address: [address] [place] [address] Performed By: #### 2 4321-2 ####ADAM LABORATORYCLIA [id number] [place] [address] [place] Calcium [Mass/Vol] 10.8 mg/dL High 8.5-10.2 [facility] Comment on above: Order Comment: Speci men Type: BLOOD SPECIMENOrdering Facility: [facility] Address: [address] [place] [address] Performed By: #### 2 4321-2 ####ADAM LABORATORYCLIA [id number] [place] [address] [place] Chloride [Moles/Vol] 87 mmol/L Low 98-107 [facility] Comment on above: Order Comment: Speci men Type: BLOOD SPECIMENOrdering Facility: [facility] Address: [address] [place] [address] Performed By: #### 2 4321-2 ####ADAM LABORATORYCLIA [id number] [place] [address] [place] CO2 [Moles/Vol] 26 mmol/L Normal 22-30 [facility] Comment on above: Order Comment: Speci men Type: BLOOD SPECIMENOrdering Facility: [facility] Address: [address] [place] [address] Performed By: #### 2 4321-2 ####ADAM LABORATORYCLIA [id number] [address] [place] Creatinine [Mass/Vol] 4.02 mg/dL High 0.73-1.22 [facility] Comment on above: Order Comment: Kelsi huff Type: BLOOD SPECIMENOrdering Facility: [facility] Address: [address] [place] [address] Performed By: #### 2 4321-2 ####ADAM LABORATORYCLIA [id number] [address] Creatinine and Glomerular filtration rate.predicted panel (S/P/Bld) 16 mL/min/1.73m??? Low >=60 [facility] Comment on above: Order Comment: Kelsi huff Type: BLOOD SPECIMENOrdering Facility: [facility] Address: [address] [place] [address] Result Comment: Caryl mated Glomerular Filtration Rate [...] Performed By: #### 2 4321-2 ####ADAM LABORATORYCLIA [id number] [address] STATES [facility] Glucose [Mass/Vol] 124 mg/dL High 74-99 [facility] Comment on above: Order Comment: Kelsi huff Type: BLOOD SPECIMENOrdering Facility: [facility] Address: [address] [place] [address] Result Comment: The [place] Diabetes Association (ADA) provides guidance for cutoff [...] Standards of Medical Care in Diabetes 2016, [place] [employer]. Diabetes Care. 2016.39(Suppl 1). Performed By: #### 2 4321-2 ####ADAM LABORATORYCLIA [id number] [place] [address] [place] Potassium [Moles/Vol] 5.6 mmol/L High 3.7-5.1 [facility] Comment on above: Order Comment: Speci men Type: BLOOD SPECIMENOrdering Facility: [facility] Address: [address] [place] [address] Performed By: #### 2 4321-2 ####ADAM LABORATORYCLIA [id number] [place] [address] [place] Sodium [Moles/Vol] 129 mmol/L Low 136-144 [facility] Comment on above: Order Comment: Speci men Type: BLOOD SPECIMENOrdering Facility: [facility] Address: [address] [place] [address] Performed By: #### 2 4321-2 ####ADAM LABORATORYCLIA [id number] [place] [address] [place] Urea nitrogen [Mass/Vol] 36 mg/dL High 9-24 [facility] Comment on above: Order Comment: Speci men Type: BLOOD SPECIMENOrdering Facility: [facility] Address: [address] [place] [address] Performed By: #### 2 4321-2 ####ADAM LABORATORYCLIA [id number] [place] [address] [place] CBC panel Auto (Bld)on 01-14 Erythrocyte distribution width (RBC) [Ratio] 16.2 % High 11.5-15.0 [facility] Comment on above: Order Comment: Speci men Type: BLOOD SPECIMENOrdering Facility: [facility] Address: [address] [place] [address] Performed By: #### 5 8410-2 ####ADAM LABORATORYCLIA [id number] [address] Hematocrit (Bld) [Volume fraction] 39.9 % Normal 39.0-51.0 [facility] Comment on above: Order Comment: Speci men Type: BLOOD SPECIMENOrdering Facility: [facility] Address: [address] [place] [address] Performed By: #### 5 8410-2 ####ADAM LABORATORYCLIA [id number] [address] OF [facility] Hemoglobin (Bld) [Mass/Vol] 13.2 g/dL Normal 13.0-17.0 [facility] Comment on above: Order Comment: Speci men Type: BLOOD SPECIMENOrdering Facility: [facility] Address: [address] [place] [address] Performed By: #### 5 8410-2 ####ADAM LABORATORYCLIA [id number] [address] MCH (RBC) [Entitic mass] 31.7 pg Normal 26.0-34.0 [facility] Comment on above: Order Comment: Speci men Type: BLOOD SPECIMENOrdering Facility: [facility] Address: [address] [place] [address] Performed By: #### 5 8410-2 ####ADAM LABORATORYCLIA [id number] [address] MCHC (RBC) [Mass/Vol] 33.1 g/dL Normal 30.5-36.0 [facility] Comment on above: Order Comment: Speci men Type: BLOOD SPECIMENOrdering Facility: [facility] Address: [address] [place] [address] Performed By: #### 5 8410-2 ####ADAM LABORATORYCLIA [id number] [address] [place] MCV (RBC) [Entitic vol] 95.9 fL Normal 80.0-100.0 [facility] Comment on above: Order Comment: Speci men Type: BLOOD SPECIMENOrdering Facility: [facility] Address: [address] [place] [address] Performed By: #### 5 8410-2 ####ADAM LABORATORYCLIA [id number] [place] [address] [place] Nucleated RBC (Bld) [#/Vol] 10*3/uL Normal <0.01 [facility] Comment on above: Order Comment: Speci men Type: BLOOD SPECIMENOrdering Facility: [facility] Address: [address] [place] [address] Performed By: #### 5 8410-2 ####ADAM LABORATORYCLIA [id number] [address] [place] Platelet mean volume (Bld) [Entitic vol] 10.5 fL Normal 9.0-12.7 [facility] Comment on above: Order Comment: Speci men Type: BLOOD SPECIMENOrdering Facility: [facility] Address: [address] [place] [address] Performed By: #### 5 8410-2 ####ADAM LABORATORYCLIA [id number] [address] [place] Platelets (Bld) [#/Vol] 149 10*3/uL Low 150-400 [facility] Comment on above: Order Comment: Speci men Type: BLOOD SPECIMENOrdering Facility: [facility] Address: [address] [place] [address] Performed By: #### 5 8410-2 ####ADAM LABORATORYCLIA [id number] [address] [place] RBC (Bld) [#/Vol] 4.16 10*6/uL Low 4.20-6.00 [facility] Comment on above: Order Comment: Speci men Type: BLOOD SPECIMENOrdering Facility: [facility] Address: [address] [place] [address] Performed By: #### 5 8410-2 ####ARBYRD LABORATORYCLIA [id number] [place] [address] [facility] [place] WBC (Bld) [#/Vol] 11.11 10*3/uL High 3.70-11.00 [facility] Comment on above: Order Comment: Speci men Type: BLOOD SPECIMENOrdering Facility: [facility] Address: [address] [place] [address] Performed By: #### 5 8410-2 ####ARBYRD LABORATORYCLIA [id number] [place] [address] [facility] CONSULT PROGon 01-14-2025 CONSULT PROG HNO ID: [id number] Author: JOSAFAT LOREDO MD Service: Nephrology Author [...] midodrine 5 mg 3 times a day [facility] ECG COMPLETEon 01-14-2025 ECG COMPLETE Ventricular Rate : 9 0 BPM QRS Duration : 160 ms Q-T Interval : 406 ms QTC Calculation(Bazett) : 496 ms Calculated R Kendrick : -89 degrees Calculated T Kendrick : 105 degrees ATRIAL FIBRILLATION RIGHT BUNDLE BRANCH BLOCK LEFT ANTERIOR FASCICULAR BLOCK BIFASCICULAR BLOCK ABNORMAL ECG WHEN COMPARED WITH ECG OF 13-Jan-2025 10:17, NO SIGNIFICANT CHANGE WAS FOUND Confirmed by RUTH ANN CLAYTON MD ([id number]) on 01/14/2025 1:45:12 PM NAME : MAURI QUINONES PID : [id number] : 1955 Gender : Male Race : ORD : [id number] Procedure Date : Jan 14 2025 09:34:09 Edit Date : Jan 14 2025 13:45:16 Diagnosis: ATRIAL FIBRILLATION RIGHT BUNDLE BRANCH BLOCK LEFT ANTERIOR FASCICULAR BLOCK BIFASCICULAR BLOCK ABNORMAL ECG WHEN COMPARED WITH ECG OF 13-Jan-2025 10:17, NO SIGNIFICANT CHANGE WAS FOUND Confirmed by RUTHA NN CLAYTON MD ([id number]) on 01/14/2025 1:45:12 PM Test Reason : Arrhythmia Location : 3 : 2N 0256 Overread By : RUTH ANN CLAYTON MD Edited By : RUTH ANN CLAYTON MD Referred By : MARTÍN ROMANO Acquired by : [id number], [facility] THERAPY NTon 01-14-2025 THERAPY NT HNO ID: [id number] Author: SONA HILL PT Service: Physical Therapy Author Type: Physical Therapist Type: Therapy (PT/OT/Speech/Resp) Filed: 01/14/2025 15:08 Note Text: -- Summary: PT treatment -- Physical Therapy Treatment Summary SERVICE DATE: 01/14/2025 SERVICE TIME: 1420 to 1443 ROOM: [id number] PT 6 Clicks Score: 8 DISCHARGE RECOMMENDATIONS [...] DIAGNOSIS Reduced mobility-other TREATMENT INTERVENTIONS Therapeutic Activity (22401) Timed Code Treatment (minutes): 23 Skilled Treatment Time (minutes): 23 Therapeutic Activity (41305) Treatment Minutes: 23 $ Therapeutic Activity (91320) Billed Units: 2 units TRAINING AND EDUCATION [...] Correction FUNCTIONAL STATU (more content not included)... [facility] ALLIED HEALTH 01-13-2025 ALLIED HEALTH HNO ID: [id number] Author: JOCELIN CARDOZA CT Service: Radiology Author [...] PATIENT PRESENTS WITH AN IMPLANTABLE OR ATTACHED FIELD HAND: No RADIOLOGY DEPARTMENT: CT; Exam(s) Completed: Chest PERIPHERAL IV DATA: Inpatient: see LDA documentation SIGNED BY: WILLIAMS Eugene January 13, 2025 5:17 PM [facility] HNO ID: [id number] Author: SILVIANO WOOD Tech Service: Radiology Author Type: Wellness Guide Type: Allied Health Filed: 01/13/2025 07:38 Note [...] PATIENT PRESENTS WITH AN IMPLANTABLE OR ATTACHED FIELD HAND: No RADIOLOGY DEPARTMENT: General X-ray: Exam(s) Completed: Chest X-Ray PERIPHERAL IV DATA: Not applicable SIGNED BY: Robert Huffman January 13, 2025 7:38 AM [facility] ARTERIAL BLOOD GASESon 01-13 Base deficit (BldA) [Moles/Vol] -3 mmol/L Low -2-0 [facility] Comment on above: Order Comment: Kelsi huff Type: ARTERIAL BLOOD SPECIMENOrdering Facility: [facility] Address: [address] [place] [address] Performed By: #### A LLBG ####ARBYRD RESPIRATORYCLIA [id number] [facility] RESPIRATORY [id number] [place] [address] Carboxyhemoglobin (BldA) [Mass fraction] 1.8 % Normal 0.0-2.0 [facility] Comment on above: Order Comment: Kelsi huff Type: ARTERIAL BLOOD SPECIMENOrdering Facility: [facility] Address: [address] [place] [address] Result Comment: Carb oxyhemoglobin Reference Range for Smokers: 2.0-8.0% Performed By: #### A LLBG ####[facility]AM RESPIRATORYCLIA [id number] [facility] RESPIRATORY [id number] [address] [address] CO2 (Bld) [Partial pressure] 37 mm Hg Normal 36-46 [facility] Comment on above: Order Comment: Speci men Type: ARTERIAL BLOOD SPECIMENOrdering Facility: [facility] Address: [address] [place] [address] Performed By: #### A LLBG ####ARBYRD RESPIRATORYIA [id number] [facility]OSPITAL RESPIRATORY [id number] [address] [address] CO2 adjusted to patient's actual temperature (Bld) [Partial pressure] Normal [facility] Comment on above: Order Comment: Speci men Type: ARTERIAL BLOOD SPECIMENOrdering Facility: [facility] Address: [address] [place] [address] Performed By: #### A LLBG ####[facility]PIRATORYGRACE [facility]OTTAGE [facility] [id number] HOSP[facility] RESPIRATORY [id number] [address] [address] HCO3 (Bld) [Moles/Vol] 22 mmol/L Normal 22-26 [facility] Comment on above: Order Comment: Speci men Type: ARTERIAL BLOOD SPECIMENOrdering Facility: [facility] Address: [address] [place] [address] Performed By: #### A LLBG ####ADAM RESPIRATORYCLIA [id number] [facility] RESPIRATORY [id number] [address] [address] Hemoglobin (Bld) [Mass/Vol] 14.1 g/dL Normal 13.0-17.0 [facility] Comment on above: Order Comment: Speci men Type: ARTERIAL BLOOD SPECIMENOrdering Facility: [facility] Address: [address] [place] [address] Performed By: #### A LLBG ####ADAM RESPIRATORYIA [id number] [facility]OSP[facility] RESPIRATORY [id number] [address] [address] Lactate [Moles/Vol] 1.8 mmol/L Normal 0.5-2.2 [facility] Comment on above: Order Comment: Speci men Type: ARTERIAL BLOOD SPECIMENOrdering Facility: [facility] Address: [address] [place] [address] Performed By: #### A LLBG ####ARBYRD RESPIRATORYIA [id number] [facility]OSPITAL RESPIRATORY [id number] [address] [address] LITERS 2 Liters/min [facility] Comment on above: Order Comment: Speci men Type: ARTERIAL BLOOD SPECIMENOrdering Facility: [facility] Address: [address] [place] [address] Performed By: #### A LLBG ####[facility]RD RESPIRATORYSHAWN VILLE [id number] [place] [address] RESPIRATORY [id number] [place] [address]26160 Methemoglobin (Bld) [Mass fraction] % Normal 0.0-1.5 [facility] Comment on above: Order Comment: Speci men Type: ARTERIAL BLOOD SPECIMENOrdering Facility: [facility] Address: [address] [place] [address] Performed By: #### A LLBG ####[place] [id number] [place] [address] RESPIRATORY [id number] [address] [address] O2 THERAPY NC = Nasal Cannula Normal [facility] Comment on above: Order Comment: Speci men Type: ARTERIAL BLOOD SPECIMENOrdering Facility: [facility] Address: [address] [place] [address] Performed By: #### A LLBG ####[facility]PIRATORYGRACE COTTAGE [facility]OSPITAL [id number] [facility]OSP[facility] RESPIRATORY [id number] [address] [address] Oxygen (Bld) [Partial pressure] 70 mm Hg Low 85-95 [facility] Comment on above: Order Comment: Speci men Type: ARTERIAL BLOOD SPECIMENOrdering Facility: [facility] Address: [address] [place] [address] Performed By: #### A LLBG ####ARBYRD RESPIRATORYCLIA [id number] [facility]OS[facility] RESPIRATORY [id number] [address] [address] Oxygen adjusted to patient's actual temperature (Bld) [Partial pressure] Normal [facility] Comment on above: Order Comment: Speci men Type: ARTERIAL BLOOD SPECIMENOrdering Facility: [facility] Address: [address] [place] [address] Performed By: #### A LLBG ####[facility] RESPIRATORYGRACE COTTAGE [facility] [id number] HOSPITAL RESPIRATORY [id number] [address] Oxyhemoglobin (BldA) [Mass fraction] 94 % Low 95-98 [facility] Comment on above: Order Comment: Speci men Type: ARTERIAL BLOOD SPECIMENOrdering Facility: [facility] Address: [address] [place] [address] Performed By: #### A LLBG ####[facility] [id number] [facility]OSPITAL RESPIRATORY [id number] [address] pH (Bld) 7.39 [pH] Normal 7.35-7.45 [facility] Comment on above: Order Comment: Speci men Type: ARTERIAL BLOOD SPECIMENOrdering Facility: [facility] Address: [address] [place] [address] Performed By: #### A LLBG ####[facility] [id number] [facility]OSPITAL RESPIRATORY [id number] [address] [address] pH adjusted to patient's actual temperature (Bld) Normal [facility] Comment on above: Order Comment: Speci men Type: ARTERIAL BLOOD SPECIMENOrdering Facility: [facility] Address: [address] [place] [address] Performed By: #### A LLBG ####[facility] [id number] [facility]OS[facility] RESPIRATORY [id number] [address] [address] Potassium [Moles/Vol] 6.0 mmol/L High 3.5-5.0 [facility] Comment on above: Order Comment: Speci men Type: ARTERIAL BLOOD SPECIMENOrdering Facility: [facility] Address: [address] [place] [address] Performed By: #### A LLBG ####[facility] RESPIRATORYCLIA [id number] [facility] RESPIRATORY [id number] [place] [address] Basic metabolic 2000 panelon 01-13-2025 Anion gap [Moles/Vol] 19 mmol/L High 8-15 [facility] Comment on above: Order Comment: Speci men Type: BLOOD SPECIMENOrdering Facility: [facility] Address: [address] [place] [address] [place] [address] Performed By: #### 2 4321-2 ####ARBYRD LABORATORYCLIA [id number] [place] [address] [place] Calcium [Mass/Vol] 10.8 mg/dL High 8.5-10.2 [facility] Comment on above: Order Comment: Speci men Type: BLOOD SPECIMENOrdering Facility: [facility] Address: [address] [place] [address] Performed By: #### 2 4321-2 ####ARBYRD LABORATORYCLIA [id number] [place] [address] [place] Chloride [Moles/Vol] 89 mmol/L Low 98-107 [facility] Comment on above: Order Comment: Speci men Type: BLOOD SPECIMENOrdering Facility: [facility] Address: [address] [place] [address] [place] [address] Performed By: #### 2 4321-2 ####ADAM LABORATORYCLIA [id number] [place] [id number] [place] CO2 [Moles/Vol] 22 mmol/L Normal 22-30 [facility] Comment on above: Order Comment: Speci men Type: BLOOD SPECIMENOrdering Facility: [facility] Address: [address] [place] [address] Performed By: #### 2 4321-2 ####ADAM LABORATORYCLIA [id number] [place] [address] [place] Creatinine [Mass/Vol] 5.26 mg/dL High 0.73-1.22 [facility] Comment on above: Order Comment: Speci men Type: BLOOD SPECIMENOrdering Facility: [facility] Address: [address] [place] [address] Performed By: #### 2 4321-2 ####ADAM LABORATORYCLIA [id number] [place] [id number] [facility] Creatinine and Glomerular filtration rate.predicted panel (S/P/Bld) 11 mL/min/1.73m??? Low >=60 [facility] Comment on above: Order Comment: Kelsi huff Type: BLOOD SPECIMENOrdering Facility: [facility] Address: [address] [place] [address] Result Comment: Caryl mated Glomerular Filtration Rate [...] Performed By: #### 2 4321-2 ####ADAM LABORATORYCLIA [id number] [place] [id number] [place] Glucose [Mass/Vol] 38 mg/dL Critically low 74-99 [facility] Comment on above: Order Comment: Kelsi huff Type: BLOOD SPECIMENOrdering Facility: [facility] Address: [address] [place] [address] Result Comment: The [place] Diabetes Association (ADA) provides guidance for cutoff [...] Standards of Medical Care in Diabetes 2016, [place] [employer]. Diabetes Care. 2016.39(Suppl 1). Performed By: #### 2 4321-2 ####ADAM LABORATORYCLIA [id number] [address] Potassium [Moles/Vol] 6.0 mmol/L High 3.7-5.1 [facility] Comment on above: Order Comment: Speci men Type: BLOOD SPECIMENOrdering Facility: [facility] Address: [address] [place] [address] Performed By: #### 2 4321-2 ####ADAM LABORATORYCLIA [id number] [address] Sodium [Moles/Vol] 130 mmol/L Low 136-144 [facility] Comment on above: Order Comment: Speci men Type: BLOOD SPECIMENOrdering Facility: [facility] Address: [address] [place] [address] Performed By: #### 2 4321-2 ####ADAM LABORATORYCLIA [id number] [address] Urea nitrogen [Mass/Vol] 53 mg/dL High 9-24 [facility] Comment on above: Order Comment: Speci men Type: BLOOD SPECIMENOrdering Facility: [facility] Address: [address] [place] [address] Performed By: #### 2 4321-2 ####ADAM LABORATORYCLIA [id number] [address] CBC panel Auto (Bld)on 01-13 Erythrocyte distribution width (RBC) [Ratio] 16.0 % High 11.5-15.0 [facility] Comment on above: Order Comment: Speci men Type: BLOOD SPECIMENOrdering Facility: [facility] Address: [address] [place] [address] Performed By: #### 5 8410-2 ####ADAM LABORATORYCLIA [id number] [address] Hematocrit (Bld) [Volume fraction] 41.0 % Normal 39.0-51.0 [facility] Comment on above: Order Comment: Speci men Type: BLOOD SPECIMENOrdering Facility: [facility] Address: [address] [place] [address] Performed By: #### 5 8410-2 ####ADAM LABORATORYCLIA [id number] [address] Hemoglobin (Bld) [Mass/Vol] 13.7 g/dL Normal 13.0-17.0 [facility] Comment on above: Order Comment: Speci men Type: BLOOD SPECIMENOrdering Facility: [facility] Address: [address] [place] [address] Performed By: #### 5 8410-2 ####ADAM LABORATORYCLIA [id number] [address] MCH (RBC) [Entitic mass] 31.7 pg Normal 26.0-34.0 [facility] Comment on above: Order Comment: Speci men Type: BLOOD SPECIMENOrdering Facility: [facility] Address: [address] [place] [address] Performed By: #### 5 8410-2 ####ADAM LABORATORYCLIA [id number] [address] MCHC (RBC) [Mass/Vol] 33.4 g/dL Normal 30.5-36.0 [facility] Comment on above: Order Comment: Speci men Type: BLOOD SPECIMENOrdering Facility: [facility] Address: [address] [place] [address] Performed By: #### 5 8410-2 ####ADAM LABORATORYCLIA [id number] [address] MCV (RBC) [Entitic vol] 94.9 fL Normal 80.0-100.0 [facility] Comment on above: Order Comment: Speci men Type: BLOOD SPECIMENOrdering Facility: [facility] Address: [address] [place] [address] Performed By: #### 5 8410-2 ####ADAM LABORATORYCLIA [id number] [address] Nucleated RBC (Bld) [#/Vol] 10*3/uL Normal <0.01 [facility] Comment on above: Order Comment: Speci men Type: BLOOD SPECIMENOrdering Facility: [facility] Address: [address] [place] [address] Performed By: #### 5 8410-2 ####ADAM LABORATORYCLIA [id number] [place] [id number] [place] Platelet mean volume (Bld) [Entitic vol] 9.8 fL Normal 9.0-12.7 [facility] Comment on above: Order Comment: Speci men Type: BLOOD SPECIMENOrdering Facility: [facility] Address: [address] [place] [address] Performed By: #### 5 8410-2 ####ARBYRD LABORATORYCLIA [id number] [place] [address] [facility] [place] Platelets (Bld) [#/Vol] 160 10*3/uL Normal 150-400 [facility] Comment on above: Order Comment: Speci men Type: BLOOD SPECIMENOrdering Facility: [facility] Address: [address] [place] [address] Performed By: #### 5 8410-2 ####ARBYRD LABORATORYCLIA [id number] [place] [address] [place] RBC (Bld) [#/Vol] 4.32 10*6/uL Normal 4.20-6.00 [facility] Comment on above: Order Comment: Speci men Type: BLOOD SPECIMENOrdering Facility: [facility] Address: [address] [place] [address] Performed By: #### 5 8410-2 ####ARBYRD LABORATORYCLIA [id number] [address] [place] WBC (Bld) [#/Vol] 11.01 10*3/uL High 3.70-11.00 [facility] Comment on above: Order Comment: Speci men Type: BLOOD SPECIMENOrdering Facility: [facility] Address: [address] [place] [address] Performed By: #### 5 8410-2 ####ARBYRD LABORATORYCLIA [id number] [address] CONSULT PROGon 01-13-2025 CONSULT PROG HNO ID: [id number] Author: JOSAFAT LOREDO MD Service: Nephrology Author [...] midodrine 5 mg 3 times a day [facility] CT CHEST WO IVCONon 01-14-20 CT CHEST WO IVCON * * *Final Report* * * DATE OF EXAM: Jan 13 2025 5:22PM [facility] 0541 - CT CHEST WO IVCON / [...] pulmonary infection cannot be excluded. Global cardiomegaly. Military Personnel Specialist: PSCLeslye Transcribe Date/Time: Jan 14 2025 8:14A Dictated by : AILEEN MARTINES MD This examination was interpreted and the report reviewed and electronically signed by: AILEEN MARTINES MD on Jan 14 2025 8:31AM EST [id number] [facility] ECG COMPLETEon 01-13-2025 ECG COMPLETE Ventricular Rate : 7 4 BPM Atrial Rate : 74 BPM P-R Interval : 96 ms QRS Duration : 128 ms Q-T Interval : 424 ms QTC Calculation(Bazett) : 470 ms Calculated P Kendrick : -42 degrees Calculated R Kendrick : -78 degrees Calculated T Kendrick : 115 degrees ATRIAL FIBRILLATION RIGHT BUNDLE BRANCH BLOCK LEFT ANTERIOR FASCICULAR BLOCK ABNORMAL ECG WHEN COMPARED WITH ECG OF 13-Jan-2025 07:44, NO SIGNIFICANT CHANGE WAS FOUND Confirmed by RUTH ANN CLAYTON MD ([id number]) on 01/14/2025 1:37:19 PM NAME : MAURI QUINONES PID : [id number] : 1955 Gender : Male Race : ORD : [id number] Procedure Date : Jan 13 2025 10:17:51 Edit Date : Jan 14 2025 13:37:20 Diagnosis: ATRIAL FIBRILLATION RIGHT BUNDLE BRANCH BLOCK LEFT ANTERIOR FASCICULAR BLOCK ABNORMAL ECG WHEN COMPARED WITH ECG OF 13-Jan-2025 07:44, NO SIGNIFICANT CHANGE WAS FOUND Confirmed by RUTH ANN CLAYTON MD ([id number]) on 01/14/2025 1:37:19 PM Test Reason : Tachycardia Location : 4 : 2S 225 Overread By : RUTH ANN CLAYTON MD Edited By : RUTH ANN CLAYTON MD Referred By : MARTÍN ROMANO Acquired by : Sydnee Salcedo [facility] ECHOon 01-13-2025 Echocardiography Echocardiography Rep ort: Transthoracic Echo [facility] Date of service: 01/13/2025 12:54:56 PM Ordering physician: EVARISTO DAS Indication: Sustained atrial fibrillation Technologist: Macey Pichardo [facility] Interpreting physician: Mauri Wynn MD PATIENT: Name: [...] MD on 5 (more content not included)... [facility] EKGon 01-13-2025 Electrocardiogram Ventricular Rate : 9 7 BPM Atrial Rate : 97 BPM P-R Interval : 80 ms QRS Duration : 162 ms Q-T Interval : 358 ms QTC Calculation(Bazett) : 454 ms Calculated P Kendrick : -29 degrees Calculated R Kendrick : 246 degrees Calculated T Kendrick : 11 degrees ATRIAL FIBRILLATION RIGHT BUNDLE BRANCH BLOCK INFERIOR INFARCT , AGE UNDETERMINED ABNORMAL ECG NO PREVIOUS ECGS AVAILABLE Confirmed by RUTH ANN CLAYTON MD ([id number]) on 01/14/2025 1:35:20 PM NAME : MAURI QUINONES PID : [id number] : 1955 Gender : Male Race : ORD : Procedure Date : Jan 13 2025 07:44:50 Edit Date : Jan 14 2025 13:35:27 Diagnosis: ATRIAL FIBRILLATION RIGHT BUNDLE BRANCH BLOCK INFERIOR INFARCT , AGE UNDETERMINED ABNORMAL ECG NO PREVIOUS ECGS AVAILABLE Confirmed by RUTH ANN CLAYTON MD ([id number]) on 01/14/2025 1:35:20 PM Test Reason : Location : 3 : [address] [place] [address] Overread By : RUTH ANN CLAYTON MD Edited By : RUTH ANN CLAYTON MD Referred By : MARTÍN ROMANO Acquired by : joshua [facility] HIGH SENSITIVITY TROPONIN To n 01-13-2025 Troponin T.cardiac High sensitivity method [Mass/Vol] 288 ng/L High <[address] [place] [address] Comment on above: Order Comment: Speci men Type: BLOOD SPECIMENOrdering Facility: [facility] Address: [address] [place] [address] Performed By: #### H STNT ####ADAM LABORATORYCLIA [id number] [address] [place] Troponin T.cardiac High sensitivity method [Mass/Vol] 260 ng/L High <[address] [place] [address] Comment on above: Order Comment: Speci men Type: BLOOD SPECIMENOrdering Facility: [facility] Address: [address] [place] [address] Performed By: #### H STNT ####ADAM LABORATORYCLIA [id number] [place] [address] [place] MEDICAL Joseph 01-13-2025 COLLETTE BARRETT HNO ID: [id number] Author: IVETT DUEÑAS APRN.JOCELYN Service: Critical Care Author Type: Nurse Practitioner Type: Chg in Clinical Condition Filed: 01/13/2025 17:40 Note Text: MEDICAL EMERGENCY TEAM CALL TYPE: RAPID RESPONSE 0719 CODE STATUS: Code Status: Prior BACKGROUND Mauri Quinones is a 69 year old male with a past medical history described below who was admitted to [facility] on 01/07/2025 for management of Fractured pelvis. [...] T-wave inversions in precordial leads. Spoke with reservations specialist Cardiology Daniela Lewis, not concerned by EKG, [...] systolic and diastolic CHF (congestive heart failure) ([facility]) 03/24/2019 CKD (chronic kidney disease) stage 3, GFR 30-59 ml/min ([facility]) 03/24/2019 Constipation Diabetes ([facility]) ESRD (end stage renal disease) ([facility]) Gout History of coronary artery bypass graft [...] valve calcifi NSTEMI (non-ST elevated myocardial infarction) ([facility]) 03/12/2017 [facility] admit Osteoarthritis PAST SURGICAL HISTORY Procedure [...] cool and moist. (more content not included)... [facility] NURSING PROGon 01-13-2025 NURSING PROG HNO ID: [id number] Author: SAMEER PIERRE RN Service: Nursing Author Type: Registered Nurse Type: Nursing Progress Note Filed: 01/13/2025 12:29 Note Text: Hemodialysis tx completed x 3.5 hours. Pt tolerated tx well. Fluid removed 3,000ml using crit-line monitor to B-profile and BV change max of -8.8%. Vitals stable post tx. Verbal report to RN Floyd Mishra post tx. [facility] NURSING PROG HNO ID: [id number] Author: FLOYD MISHRA RN Service: Nursing Author Type: Registered Nurse Type: Nursing Progress Note Filed: 01/13/2025 19:10 Note Text: Event(s) / Intervention Note: PATIENT NAME: Mauri Quinones Patient Location: [place] [address] [address] Room: [place] [address] The patient was observed having the following [...] new ACHS and 0200 blood glucose orders. [facility] NUTRITIONon 01-13-2025 NUTRITION HNO ID: [id number] Author: SAL BRAMBILA RD Service: Nutrition Therapy [...] day LOS 69 y/o male Fractured pelvis ([facility]) [S32.9XXA] Left hip pain [M25.552] PAST MEDICAL HISTORY Diagnosis Date Ankylosing spondylitis ([facility]) CAD (coronary artery disease) Cellulitis Chronic combined systolic and diastolic CHF (congestive heart failure) ([facility]) 03/24/2019 CKD (chronic kidney disease) stage 3, GFR 30-59 ml/min ([facility]) 03/24/2019 Constipation Diabetes ([facility]) ESRD (end stage renal disease) ([facility]) Gout History of coronary artery bypass graft [...] valve calcifi NSTEMI (non-ST elevated myocardial infarction) ([facility]) 03/12/2017 [facility] admit Osteoarthritis Weight Weight 01/11/2025 165 [...] or equal to 5 days ONS use MANAGER WELDING on HD days Diet Orders (From admission, [...] DATE: January 13, 2025 TIME: 10:53 AM [facility] THERAPY NTon 01-13-2025 THERAPY NT HNO ID: [id number] Author: ANAYA WHITE CCC-SENIOR QUALITY ENGINEER Service: Speech/Swallow Author Type: Speech Language Pathologist Type: Therapy (PT/OT/Speech/Resp) Filed: 01/13/2025 15:51 Note Text: -- Summary: Dysphagia Tx -- Speech Therapy Treatment SERVICE DATE: 01/13/2025 SERVICE TIME: 1528 to 1546 ROOM: [place] [address] IMPRESSION Swallow Deficits Identified / Suspected: Oral [...] Dysphagia, oral phase TREATMENT INTERVENTIONS Dysphagia Therapy (29868) Skilled Treatment Time (minutes): 18 TRAINING AND [...] next visit: Dysphagia Management SIGNATURE: Anaya Malik CCC-SENIOR QUALITY ENGINEER PATIENT NAME: Mauri Quinones DATE: January 13, 2025 TIME: 3:50 PM Normal [facility] XR CHEST 1V FRONTAL PORTon 0 01-13-2025 [...] sternotomy and CABG. IMPRESSION: Overall findings unchanged. Military Personnel Specialist: PSCB Transcribe Date/Time: Jan 13 2025 8:04A Dictated by : AILEEN MARTINES MD This examination was interpreted and the report reviewed and electronically signed by: AILEEN MARTINES MD on Jan 13 2025 8:06AM EST [id number] Normal [facility] Basic metabolic 2000 panelon 01-12-2025 Anion gap [Moles/Vol] 12 mmol/L Normal 04-10 [facility] Comment on above: Order Comment: Kelsi huff Type: BLOOD SPECIMENOrdering Facility: [facility] Address: [address] [place] [address] Performed By: #### 2 4321-2 ####ARBYRD LABORATORYCLIA [id number] [place] [address] [place] Calcium [Mass/Vol] 10.2 mg/dL Normal 8.5-10.2 [facility] Comment on above: Order Comment: Kelsi huff Type: BLOOD SPECIMENOrdering Facility: [facility] Address: [address] [place] [address] Performed By: #### 2 4321-2 ####ARBYRD LABORATORYCLIA [id number] [place] [id number] [place] Chloride [Moles/Vol] 93 mmol/L Low 98-107 [facility] Comment on above: Order Comment: Speci men Type: BLOOD SPECIMENOrdering Facility: [facility] Address: [address] [place] [address] Performed By: #### 2 4321-2 ####ADAM LABORATORYCLIA [id number] [place] [address] [place] CO2 [Moles/Vol] 28 mmol/L Normal 22-30 [facility] Comment on above: Order Comment: Speci men Type: BLOOD SPECIMENOrdering Facility: [facility] Address: [address] [place] [address] Performed By: #### 2 4321-2 ####ADAM LABORATORYCLIA [id number] [address] STATES OF [facility] Creatinine [Mass/Vol] 4.52 mg/dL High 0.73-1.22 [facility] Comment on above: Order Comment: Speci men Type: BLOOD SPECIMENOrdering Facility: [facility] Address: [address] [place] [address] Performed By: #### 2 4321-2 ####ADAM LABORATORYCLIA [id number] [address] Creatinine and Glomerular filtration rate.predicted panel (S/P/Bld) 13 mL/min/1.73m??? Low >=60 [facility] Comment on above: Order Comment: Samanthai daria Type: BLOOD SPECIMENOrdering Facility: [facility] Address: [address] [place] [address] Result Comment: Caryl mated Glomerular Filtration Rate [...] Performed By: #### 2 4321-2 ####ADAM LABORATORYCLIA [id number] [address] [place] Glucose [Mass/Vol] 69 mg/dL Low 74-99 [facility] Comment on above: Order Comment: Kelsi huff Type: BLOOD SPECIMENOrdering Facility: [facility] Address: [address] [place] [address] Result Comment: The [place] Diabetes Association (ADA) provides guidance for cutoff [...] Standards of Medical Care in Diabetes 2016, [place] [employer]. Diabetes Care. 2016.39(Suppl 1). Performed By: #### 2 4321-2 ####ADAM LABORATORYCLIA [id number] [place] [address] [place] Potassium [Moles/Vol] 5.0 mmol/L Normal 3.7-5.1 [facility] Comment on above: Order Comment: Kelsi huff Type: BLOOD SPECIMENOrdering Facility: [facility] Address: [address] [place] [address] Performed By: #### 2 4321-2 ####ADAM LABORATORYCLIA [id number] [place] [address] [place] Sodium [Moles/Vol] 133 mmol/L Low 136-144 [facility] Comment on above: Order Comment: Samanthai men Type: BLOOD SPECIMENOrdering Facility: [facility] Address: [address] [place] [address] Performed By: #### 2 4321-2 ####ADAM LABORATORYCLIA [id number] [place] [id number] [place] Urea nitrogen [Mass/Vol] 43 mg/dL High 9-24 [facility] Comment on above: Order Comment: Smaanthai men Type: BLOOD SPECIMENOrdering Facility: [facility] Address: [address] [place] [address] Performed By: #### 2 4321-2 ####ADAM LABORATORYCLIA [id number] [address] CBC panel Auto (Bld)on 01-12 Erythrocyte distribution width (RBC) [Ratio] 16.0 % High 11.5-15.0 [facility] Comment on above: Order Comment: Speci men Type: BLOOD SPECIMENOrdering Facility: [facility] Address: [address] [place] [address] Performed By: #### 5 8410-2 ####ADAM LABORATORYCLIA [id number] [address] Hematocrit (Bld) [Volume fraction] 35.3 % Low 39.0-51.0 [facility] Comment on above: Order Comment: Speci men Type: BLOOD SPECIMENOrdering Facility: [facility] Address: [address] [place] [address] Performed By: #### 5 8410-2 ####ADAM LABORATORYCLIA [id number] [address] Hemoglobin (Bld) [Mass/Vol] 11.6 g/dL Low 13.0-17.0 [facility] Comment on above: Order Comment: Speci men Type: BLOOD SPECIMENOrdering Facility: [facility] Address: [address] [place] [address] Performed By: #### 5 8410-2 ####ADAM LABORATORYCLIA [id number] [address] MCH (RBC) [Entitic mass] 31.6 pg Normal 26.0-34.0 [facility] Comment on above: Order Comment: Speci men Type: BLOOD SPECIMENOrdering Facility: [facility] Address: [address] [place] [address] Performed By: #### 5 8410-2 ####ADAM LABORATORYCLIA [id number] [address] MCHC (RBC) [Mass/Vol] 32.9 g/dL Normal 30.5-36.0 [facility] Comment on above: Order Comment: Speci men Type: BLOOD SPECIMENOrdering Facility: [facility] Address: [address] [place] [address] Performed By: #### 5 8410-2 ####ADAM LABORATORYCLIA [id number] [place] [address] [place] MCV (RBC) [Entitic vol] 96.2 fL Normal 80.0-100.0 [facility] Comment on above: Order Comment: Speci men Type: BLOOD SPECIMENOrdering Facility: [facility] Address: [address] [place] [address] Performed By: #### 5 8410-2 ####ADAM LABORATORYCLIA [id number] [address] [place] Nucleated RBC (Bld) [#/Vol] 10*3/uL Normal <0.01 [facility] Comment on above: Order Comment: Speci men Type: BLOOD SPECIMENOrdering Facility: [facility] Address: [address] [place] [address] Performed By: #### 5 8410-2 ####ADAM LABORATORYCLIA [id number] [address] [place] Platelet mean volume (Bld) [Entitic vol] 9.6 fL Normal 9.0-12.7 [facility] Comment on above: Order Comment: Speci men Type: BLOOD SPECIMENOrdering Facility: [facility] Address: [address] [place] [address] Performed By: #### 5 8410-2 ####ADAM LABORATORYCLIA [id number] [address] [place] Platelets (Bld) [#/Vol] 137 10*3/uL Low 150-400 [facility] Comment on above: Order Comment: Speci men Type: BLOOD SPECIMENOrdering Facility: [facility] Address: [address] [place] [address] Performed By: #### 5 8410-2 ####ADAM LABORATORYCLIA [id number] [place] [address] [facility] [place] RBC (Bld) [#/Vol] 3.67 10*6/uL Low 4.20-6.00 [facility] Comment on above: Order Comment: Speci men Type: BLOOD SPECIMENOrdering Facility: [facility] Address: [address] [place] [id number] Performed By: #### 5 8410-2 ####ADAM LABORATORYCLIA [id number] [address] WBC (Bld) [#/Vol] 6.05 10*3/uL Normal 3.70-11.00 [facility] Comment on above: Order Comment: Speci men Type: BLOOD SPECIMENOrdering Facility: [facility] Address: [address] [place] [id number] Performed By: #### 5 8410-2 ####ADAM LABORATORYCLIA [id number] [place] [id number] [facility] CONSULT PROGon 01-12-2025 CONSULT PROG HNO ID: [id number] Author: JOSAFAT LOREDO MD Service: Nephrology Author [...] midodrine 5 mg 3 times a day [facility] THERAPY NTon 01-12-2025 THERAPY NT HNO ID: [id number] Author: SONA HILL PT Service: Physical Therapy Author Type: Nurse Practitioner Adult Type: Therapy (PT/OT/Speech/Resp) Filed: 01/13/2025 15:40 Note Text: -- Attestation signed by Sona Hill PT at 01/13/2025 3:40 PM I reviewed and agree with the documentation corresponding to this therapy visit. SIGNATURE: Sona Hill PT DATE: January 13, 2025 TIME: 3:40 PM -- -- Summary: PT Treat -- Physical Therapy Treatment Summary SERVICE DATE: 01/12/2025 SERVICE TIME: 1345 to 1420 ROOM: [id number] PT 6 Clicks Score: 10 DISCHARGE RECOMMENDATIONS [...] DIAGNOSIS Reduced mobility-other TREATMENT INTERVENTIONS Therapeutic Activity (57068) Timed Code Treatment (minutes): 35 Skilled Treatment Time (minutes): 35 Therapeutic Activity (43145) Treatment Minutes: 35 $ Therapeutic Activity (69724) Billed Units: 2 units TRAINING AND EDUCATION [...] Lines, Tubes (more content not included)... Normal [facility] Basic metabolic 2000 panelon 01-11-2025 Anion gap [Moles/Vol] 11 mmol/L Normal 8-15 [facility] Comment on above: Order Comment: Speci men Type: BLOOD SPECIMENOrdering Facility: [facility] Address: [address] [place] [address] Performed By: #### 2 4321-2 ####ADAM LABORATORYCLIA [id number] [place] [address] [place] Calcium [Mass/Vol] 10.1 mg/dL Normal 8.5-10.2 [facility] Comment on above: Order Comment: Speci men Type: BLOOD SPECIMENOrdering Facility: [facility] Address: [address] [place] [address] Performed By: #### 2 4321-2 ####ADAM LABORATORYCLIA [id number] [place] [address] [place] Chloride [Moles/Vol] 93 mmol/L Low 98-107 [facility] Comment on above: Order Comment: Speci men Type: BLOOD SPECIMENOrdering Facility: [facility] Address: [address] [place] [address] Performed By: #### 2 4321-2 ####ADAM LABORATORYCLIA [id number] [place] [address] [place] CO2 [Moles/Vol] 28 mmol/L Normal 22-30 [facility] Comment on above: Order Comment: Speci men Type: BLOOD SPECIMENOrdering Facility: [facility] Address: [address] [place] [address] Performed By: #### 2 4321-2 ####ADAM LABORATORYCLIA [id number] [place] [address] [place] Creatinine [Mass/Vol] 3.43 mg/dL High 0.73-1.22 [facility] Comment on above: Order Comment: Speci men Type: BLOOD SPECIMENOrdering Facility: [facility] Address: [address] [place] [address] Performed By: #### 2 4321-2 ####ARBYRD LABORATORYCLIA [id number] [place] [address] [place] Creatinine and Glomerular filtration rate.predicted panel (S/P/Bld) 19 mL/min/1.73m??? Low >=60 [facility] Comment on above: Order Comment: Kelsi huff Type: BLOOD SPECIMENOrdering Facility: [facility] Address: [address] [place] [address] Result Comment: Caryl mated Glomerular Filtration Rate [...] actual GFR. Performed By: #### 2 4321-2 ####ARBYRD LABORATORYCLIA [id number] [place] [id number] [place] Glucose [Mass/Vol] 106 mg/dL High 74-99 [facility] Comment on above: Order Comment: Kelsi huff Type: BLOOD SPECIMENOrdering Facility: [facility] Address: [address] [place] [address] Result Comment: The [place] Diabetes Association (ADA) provides guidance for cutoff [...] Standards of Medical Care in Diabetes 2016, [place] [employer]. Diabetes Care. 2016.39(Suppl 1). Performed By: #### 2 4321-2 ####ARBYRD LABORATORYCLIA [id number] [place] [address] [place] Potassium [Moles/Vol] 4.6 mmol/L Normal 3.7-5.1 [facility] Comment on above: Order Comment: Speci men Type: BLOOD SPECIMENOrdering Facility: [facility] Address: [address] [place] [address] Performed By: #### 2 4321-2 ####ADAM LABORATORYCLIA [id number] [address] STATES OF [facility] Sodium [Moles/Vol] 132 mmol/L Low 136-144 [facility] Comment on above: Order Comment: Speci men Type: BLOOD SPECIMENOrdering Facility: [facility] Address: [address] [place] [address] Performed By: #### 2 4321-2 ####ADAM LABORATORYCLIA [id number] [address] [place] Urea nitrogen [Mass/Vol] 31 mg/dL High 9-24 [facility] Comment on above: Order Comment: Speci men Type: BLOOD SPECIMENOrdering Facility: [facility] Address: [address] [place] [address] Performed By: #### 2 4321-2 ####ADAM LABORATORYCLIA [id number] [address] STATES OF [facility] CBC panel Auto (Bld)on 01-11 Erythrocyte distribution width (RBC) [Ratio] 15.9 % High 11.5-15.0 [facility] Comment on above: Order Comment: Speci men Type: BLOOD SPECIMENOrdering Facility: [facility] Address: [address] [place] [address] Performed By: #### 5 8410-2 ####ADAM LABORATORYCLIA [id number] [address] STATES [facility] Hematocrit (Bld) [Volume fraction] 35.4 % Low 39.0-51.0 [facility] Comment on above: Order Comment: Speci men Type: BLOOD SPECIMENOrdering Facility: [facility] Address: [address] [place] [address] Performed By: #### 5 8410-2 ####ADAM LABORATORYCLIA [id number] [address] [place] Hemoglobin (Bld) [Mass/Vol] 11.4 g/dL Low 13.0-17.0 [facility] Comment on above: Order Comment: Speci men Type: BLOOD SPECIMENOrdering Facility: [facility] Address: [address] [place] [address] Performed By: #### 5 8410-2 ####ADAM LABORATORYCLIA [id number] [address] MCH (RBC) [Entitic mass] 31.4 pg Normal 26.0-34.0 [facility] Comment on above: Order Comment: Speci men Type: BLOOD SPECIMENOrdering Facility: [facility] Address: [address] [place] [address] Performed By: #### 5 8410-2 ####ADAM LABORATORYCLIA [id number] [address] MCHC (RBC) [Mass/Vol] 32.2 g/dL Normal 30.5-36.0 [facility] Comment on above: Order Comment: Speci men Type: BLOOD SPECIMENOrdering Facility: [facility] Address: [address] [place] [address] Performed By: #### 5 8410-2 ####ADAM LABORATORYCLIA [id number] [address] MCV (RBC) [Entitic vol] 97.5 fL Normal 80.0-100.0 [facility] Comment on above: Order Comment: Speci men Type: BLOOD SPECIMENOrdering Facility: [facility] Address: [address] [place] [address] Performed By: #### 5 8410-2 ####ADAM LABORATORYCLIA [id number] [address] Nucleated RBC (Bld) [#/Vol] 10*3/uL Normal <0.01 [facility] Comment on above: Order Comment: Speci men Type: BLOOD SPECIMENOrdering Facility: [facility] Address: [address] [place] [address] Performed By: #### 5 8410-2 ####ADAM LABORATORYCLIA [id number] [address] Platelet mean volume (Bld) [Entitic vol] 10.0 fL Normal 9.0-12.7 [facility] Comment on above: Order Comment: Kelsi huff Type: BLOOD SPECIMENOrdering Facility: [facility] Address: [address] [place] [address] Performed By: #### 5 8410-2 ####ARBYRD LABORATORYCLIA [id number] [address] [place] Platelets (Bld) [#/Vol] 143 10*3/uL Low 150-400 [facility] Comment on above: Order Comment: Kelsi huff Type: BLOOD SPECIMENOrdering Facility: [facility] Address: [address] [place] [address] Result Comment: No c lot detected. Performed By: #### 5 8410-2 ####ARBYRD LABORATORYCLIA [id number] [address] RBC (Bld) [#/Vol] 3.63 10*6/uL Low 4.20-6.00 [facility] Comment on above: Order Comment: Kelsi huff Type: BLOOD SPECIMENOrdering Facility: [facility] Address: [address] [place] [address] Performed By: #### 5 8410-2 ####ADAM LABORATORYCLIA [id number] [address] WBC (Bld) [#/Vol] 5.49 10*3/uL Normal 3.70-11.00 [facility] Comment on above: Order Comment: Kelsi huff Type: BLOOD SPECIMENOrdering Facility: [facility] Address: [address] [place] [address] Performed By: #### 5 8410-2 ####ADAM LABORATORYCLIA [id number] [address] CONSULT PROGon 01-11-2025 CONSULT PROG HNO ID: [id number] Author: MARLENE HOLLEY MD Service: Nephrology Author [...] midodrine 5 mg 3 times a day [facility] ALLIED HEALTHon 01-10-2025 [facility] HNO ID: [id number] Author: GARRISON HOLLY RT(R) Service: Radiology Author [...] 10, 2025 TIME: 3:22 PM PAGER/CONTACT #: [facility] Basic metabolic 2000 panelon 01-10-2025 Anion gap [Moles/Vol] 16 mmol/L High 8-15 [facility] Comment on above: Order Comment: Kelsi huff Type: BLOOD SPECIMENOrdering Facility: [facility] Address: [address] [place], [place] [address] Performed By: #### 2 4325-3, 95600-0, ####ARBYRD LABORATORYCLIA [id number] [place] [address] [place] Calcium [Mass/Vol] 10.4 mg/dL High 8.5-10.2 [facility] Comment on above: Order Comment: Speci daria Type: BLOOD SPECIMENOrdering Facility: [facility] Address: [address] [place] [address] Performed By: #### 2 4325-3, 46443-1, ####ARBYRD LABORATORYCLIA [id number] [place] [address] [place] Chloride [Moles/Vol] 92 mmol/L Low 98-107 [facility] Comment on above: Order Comment: Speci men Type: BLOOD SPECIMENOrdering Facility: [facility] Address: [address] [place] [address] Performed By: #### 2 4325-3, 94938-3, ####ADAM LABORATORYCLIA [id number] [address] CO2 [Moles/Vol] 26 mmol/L Normal 22-30 [facility] Comment on above: Order Comment: Speci men Type: BLOOD SPECIMENOrdering Facility: [facility] Address: [address] [place] [address] Performed By: #### 2 4325-3, 73451-0, ####ADAM LABORATORYCLIA [id number] [address] Creatinine [Mass/Vol] 4.82 mg/dL High 0.73-1.22 [facility] Comment on above: Order Comment: Speci men Type: BLOOD SPECIMENOrdering Facility: [facility] Address: [address] [place] [address] Performed By: #### 2 4325-3, 12734-7, ####ADAM LABORATORYCLIA [id number] [address] Creatinine and Glomerular filtration rate.predicted panel (S/P/Bld) 12 mL/min/1.73m??? Low >=60 [facility] Comment on above: Order Comment: Speci men Type: BLOOD SPECIMENOrdering Facility: [facility] Address: [address] [place] [address] Result Comment: Caryl mated Glomerular Filtration Rate [...] actual GFR. Performed By: #### 2 4325-3, 72887-3, ####ADAM LABORATORYCLIA [id number] [place] [address] [place] Glucose [Mass/Vol] 94 mg/dL Normal 74-99 [facility] Comment on above: Order Comment: Kelsi huff Type: BLOOD SPECIMENOrdering Facility: [facility] Address: [address] [place] [address] Result Comment: The [place] Diabetes Association (ADA) provides guidance for cutoff [...] Standards of Medical Care in Diabetes 2016, [place] [employer]. Diabetes Care. 2016.39(Suppl 1). Performed By: #### 2 4325-3, 40640-2, ####ADAM LABORATORYCLIA [id number] [place] [address] [place] Potassium [Moles/Vol] 4.6 mmol/L Normal 3.7-5.1 [facility] Comment on above: Order Comment: Kelsi huff Type: BLOOD SPECIMENOrdering Facility: [facility] Address: [address] [place] [address] Performed By: #### 2 4325-3, 79338-2, ####ADAM LABORATORYCLIA [id number] [place] [address] [place] Sodium [Moles/Vol] 134 mmol/L Low 136-144 [facility] Comment on above: Order Comment: Kelsi huff Type: BLOOD SPECIMENOrdering Facility: [facility] Address: [address] [place] [address] Performed By: #### 2 4325-3, 32296-1, ####ADAM LABORATORYCLIA [id number] [place] [address] [place] Urea nitrogen [Mass/Vol] 50 mg/dL High 9-24 [facility] Comment on above: Order Comment: Speci men Type: BLOOD SPECIMENOrdering Facility: [facility] Address: [address] [place] [address] Performed By: #### 2 4325-3, 87512-0, 54164-1 ####ADAM LABORATORYCLIA [id number] [address] STATES [facility] CBC panel Auto (Bld)on 01-10 Erythrocyte distribution width (RBC) [Ratio] 15.6 % High 11.5-15.0 [facility] Comment on above: Order Comment: Speci men Type: BLOOD SPECIMENOrdering Facility: [facility] Address: [address] [place] [address] Performed By: #### 5 8410-2 ####ADAM LABORATORYCLIA [id number] [address] Hematocrit (Bld) [Volume fraction] 37.2 % Low 39.0-51.0 [facility] Comment on above: Order Comment: Speci men Type: BLOOD SPECIMENOrdering Facility: [facility] Address: [address] [place] [address] Performed By: #### 5 8410-2 ####ADAM LABORATORYCLIA [id number] [address] [place] Hemoglobin (Bld) [Mass/Vol] 12.0 g/dL Low 13.0-17.0 [facility] Comment on above: Order Comment: Speci men Type: BLOOD SPECIMENOrdering Facility: [facility] Address: [address] [place] [address] Performed By: #### 5 8410-2 ####ADAM LABORATORYCLIA [id number] [address] MCH (RBC) [Entitic mass] 31.5 pg Normal 26.0-34.0 [facility] Comment on above: Order Comment: Speci men Type: BLOOD SPECIMENOrdering Facility: [facility] Address: [address] [place] [address] Performed By: #### 5 8410-2 ####ADAM LABORATORYCLIA [id number] [address] MCHC (RBC) [Mass/Vol] 32.3 g/dL Normal 30.5-36.0 [facility] Comment on above: Order Comment: Speci men Type: BLOOD SPECIMENOrdering Facility: [facility] Address: [address] [place] [address] Performed By: #### 5 8410-2 ####ADAM LABORATORYCLIA [id number] [place] [address] [place] MCV (RBC) [Entitic vol] 97.6 fL Normal 80.0-100.0 [facility] Comment on above: Order Comment: Speci men Type: BLOOD SPECIMENOrdering Facility: [facility] Address: [address] [place] [address] Performed By: #### 5 8410-2 ####ADAM LABORATORYCLIA [id number] [address] Nucleated RBC (Bld) [#/Vol] 10*3/uL Normal <0.01 [facility] Comment on above: Order Comment: Speci men Type: BLOOD SPECIMENOrdering Facility: [facility] Address: [address] [place] [address] Performed By: #### 5 8410-2 ####ADAM LABORATORYCLIA [id number] [address] [place] Platelet mean volume (Bld) [Entitic vol] 10.5 fL Normal 9.0-12.7 [facility] Comment on above: Order Comment: Speci men Type: BLOOD SPECIMENOrdering Facility: [facility] Address: [address] [place] [address] Performed By: #### 5 8410-2 ####ADAM LABORATORYCLIA [id number] [address] [place] Platelets (Bld) [#/Vol] 145 10*3/uL Low 150-400 [facility] Comment on above: Order Comment: Speci men Type: BLOOD SPECIMENOrdering Facility: [facility] Address: [address] [place] [address] Result Comment: No c lot detected. Performed By: #### 5 8410-2 ####ADAM LABORATORYCLIA [id number] [address] RBC (Bld) [#/Vol] 3.81 10*6/uL Low 4.20-6.00 [facility] Comment on above: Order Comment: Speci men Type: BLOOD SPECIMENOrdering Facility: [facility] Address: [address] [place] [address] Performed By: #### 5 8410-2 ####ADAM LABORATORYCLIA [id number] [address] WBC (Bld) [#/Vol] 6.24 10*3/uL Normal 3.70-11.00 [facility] Comment on above: Order Comment: Speci men Type: BLOOD SPECIMENOrdering Facility: [facility] Address: [address] [place] [address] Performed By: #### 5 8410-2 ####ADAM LABORATORYCLIA [id number] [address] CONSULT PROGon 01-10-2025 CONSULT PROG HNO ID: [id number] Author: MARLENE HOLLEY MD Service: Nephrology Author [...] 5 mg 3 times a day Normal [facility]Conem[facility] Centerhanny 01-11-20 25 Cortisol [Mass/Vol] 12.3 ug/dL Normal 4.8-19.5 [facility] Comment on above: Order Comment: Speci men Type: BLOOD SPECIMENOrdering Facility: [facility] Address: [address] [place] [address] Result Comment: [facility] ided reference range is from 6-10 AM sample collection time. Cortisol Reference Range: 6-10 AM = 4.8-19.5 ug/dL, 4-8 PM = 2.5-11.9 ug/dL Performed By: #### 2 143-6 ####[facility] LABCLIA [id number] [address] [place] HBV surface Ag Ser Qlon 05- HBV surface Ag Ql (S) Negative Normal Negative [facility] Comment on above: Order Comment: Speci men Type: BLOOD SPECIMENOrdering Facility: [facility] Address: [address] [place] [address] Performed By: #### 5 195-3 ####[facility] LABCLIA [id number] [place] [address] [place] Hepatic function 2000 panelo n 01-10-2025 Albumin [Mass/Vol] 3.5 g/dL Low 3.9-4.9 [facility] Comment on above: Order Comment: Speci men Type: BLOOD SPECIMENOrdering Facility: [facility] Address: [address] [place] [address] Performed By: #### 2 4325-3, 74826-3, 19956-9 ####ADAM LABORATORYCLIA [id number] [place] [address] [place] [facility] ALP [Catalytic activity/Vol] 202 U/L High 38-113 [facility] Comment on above: Order Comment: Speci men Type: BLOOD SPECIMENOrdering Facility: [facility] Address: [address] [place] [address] Performed By: #### 2 4325-3, 63878-2, ####ADAM LABORATORYCLIA [id number] [address] STATES OF [facility] ALT [Catalytic activity/Vol] 12 U/L Normal 10-54 [facility] Comment on above: Order Comment: Speci men Type: BLOOD SPECIMENOrdering Facility: [facility] Address: [address] [place] [address] Performed By: #### 2 4325-3, 14723-3, ####ADAM LABORATORYCLIA [id number] [place] [id number] [place] AST [Catalytic activity/Vol] 25 U/L Normal 14-40 [facility] Comment on above: Order Comment: Speci men Type: BLOOD SPECIMENOrdering Facility: [facility] Address: [address] [place], [place] [address] [address] Performed By: #### 2 4325-3, 02807-3, ####ADAM LABORATORYCLIA [id number] [place] [address] [place] Bilirubin [Mass/Vol] 0.9 mg/dL Normal 0.2-1.3 [facility] Comment on above: Order Comment: Speci men Type: BLOOD SPECIMENOrdering Facility: [facility] Address: [address] [place] [id number] Performed By: #### 2 4325-3, 74884-9, ####ADAM LABORATORYCLIA [id number] [place] [address] [place] Bilirubin.conjugated [Mass/Vol] 0.5 mg/dL High <0.3 [facility] Comment on above: Order Comment: Speci men Type: BLOOD SPECIMENOrdering Facility: [facility] Address: [address] [place] [address] Performed By: #### 2 4325-3, 27788-8, ####ADAM LABORATORYCLIA [id number] [place] [address] [place] Protein [Mass/Vol] 7.3 g/dL Normal 6.3-8.0 [facility] Comment on above: Order Comment: Speci men Type: BLOOD SPECIMENOrdering Facility: [facility] Address: [address] [facility] [place] [address] Performed By: #### 2 4325-3, 98717-1, ####ADAM LABORATORYCLIA [id number] [place] [id number] [place] Magnesium SerPl-mCncon 01-10 Magnesium [Mass/Vol] 2.3 mg/dL Normal 1.7-2.3 [facility] Comment on above: Order Comment: Speci men Type: BLOOD SPECIMENOrdering Facility: [facility] Address: [address] [place] [id number] Performed By: #### 2 4325-3, 65655-7, ####ADAM LABORATORYCLIA [id number] [place] [address] [place] ARTERIAL BLOOD GASESon 01-09 Base excess Calc (Bld) [Moles/Vol] 3 mmol/L High 0-2 [facility] Comment on above: Order Comment: Speci men Type: ARTERIAL BLOOD SPECIMENOrdering Facility: [facility] Address: [address] [place] [address] Performed By: #### A LLBG ####[facility] [id number] [facility] RESPIRATORY [id number] [address] [address] Carboxyhemoglobin (BldA) [Mass fraction] 1.6 % Normal 0.0-2.0 [facility] Comment on above: Order Comment: Speci men Type: ARTERIAL BLOOD SPECIMENOrdering Facility: [facility] Address: [address] [place] [address] Result Comment: Carb oxyhemoglobin Reference Range for Smokers: 2.0-8.0% Performed By: #### A LLBG ####[facility] [id number] [facility]OS[facility] RESPIRATORY [id number] [address] [address] CO2 (Bld) [Partial pressure] 55 mm Hg High 36-46 [facility] Comment on above: Order Comment: Speci men Type: ARTERIAL BLOOD SPECIMENOrdering Facility: [facility] Address: [address] [place] [address] Performed By: #### A LLBG ####[facility] [id number] [id number] [address] [address] CO2 adjusted to patient's actual temperature (Bld) [Partial pressure] Normal [facility] Comment on above: Order Comment: Speci men Type: ARTERIAL BLOOD SPECIMENOrdering Facility: [facility] Address: [address] [place] [address] Performed By: #### A LLBG ####[facility] [id number] [facility]OS[facility] RESPIRATORY [id number] [address] [address] HCO3 (Bld) [Moles/Vol] 29 mmol/L High 22-26 [facility] Comment on above: Order Comment: Speci men Type: ARTERIAL BLOOD SPECIMENOrdering Facility: [facility] Address: [address] [place] [address] Performed By: #### A LLBG ####[facility] [id number] [facility]OS[facility] RESPIRATORY [id number] [address] [address] Hemoglobin (Bld) [Mass/Vol] 12.3 g/dL Low 13.0-17.0 [facility] Comment on above: Order Comment: Speci men Type: ARTERIAL BLOOD SPECIMENOrdering Facility: [facility] Address: [address] [place] [id number] Performed By: #### A LLBG ####[facility] [id number] HOSPITAL RESPIRATORY [id number] [address] [address] Lactate [Moles/Vol] 1.1 mmol/L Normal 0.5-2.2 [facility] Comment on above: Order Comment: Speci men Type: ARTERIAL BLOOD SPECIMENOrdering Facility: [facility] Address: [address] [place] [phone] Performed By: #### A LLBG ####[place] [id number] [place] [address] RESPIRATORY [id number] [address] [address] LITERS 2 Liters/min Normal [facility] Comment on above: Order Comment: Speci men Type: ARTERIAL BLOOD SPECIMENOrdering Facility: [facility] Address: [address] [place] [address] Performed By: #### A LLBG ####[facility] RESPIRATORYSHAWN VILLE [id number] [facility] RESPIRATORY [id number] [address] [address] Methemoglobin (Bld) [Mass fraction] % Normal 0.0-1.5 [facility] Comment on above: Order Comment: Speci men Type: ARTERIAL BLOOD SPECIMENOrdering Facility: [facility] Address: [address] [place] [address] Performed By: #### A LLBG ####[id number] [place] [address] RESPIRATORY [id number] [address] [address] O2 THERAPY NC = Nasal Cannula Normal [facility] Comment on above: Order Comment: Speci men Type: ARTERIAL BLOOD SPECIMENOrdering Facility: [facility] Address: [address] [place] [address] Performed By: #### A LLBG ####AD[facility] RESPIRATORYIA [id number] HOSPITAL RESPIRATORY [id number] [address] [address] Oxygen (Bld) [Partial pressure] 103 mm Hg High 85-95 [facility] Comment on above: Order Comment: Speci men Type: ARTERIAL BLOOD SPECIMENOrdering Facility: [facility] Address: [address] [place] [address] Performed By: #### A LLBG ####[place] [id number] [place] [address] RESPIRATORY [id number] [address] [address] Oxygen adjusted to patient's actual temperature (Bld) [Partial pressure] Normal [facility] Comment on above: Order Comment: Speci men Type: ARTERIAL BLOOD SPECIMENOrdering Facility: [facility] Address: [address] [place] [address] Performed By: #### A LLBG ####[facility] RESPIRATORYIA [id number] HOSPITAL RESPIRATORY [id number] [address] [address] Oxyhemoglobin (BldA) [Mass fraction] 97 % Normal 95-98 [facility] Comment on above: Order Comment: Speci men Type: ARTERIAL BLOOD SPECIMENOrdering Facility: [facility] Address: [address] [place] [address] Performed By: #### A LLBG ####[facility] [id number] HOSP[facility] RESPIRATORY [id number] [address] [address] pH (Bld) 7.34 [pH] Low 7.35-7.45 [facility] Comment on above: Order Comment: Speci men Type: ARTERIAL BLOOD SPECIMENOrdering Facility: [facility] Address: [address] [place] [address] Performed By: #### A LLBG ####AD[facility] RESPIRATORYCLIA [id number] [facility]OS[facility] RESPIRATORY [id number] [address] [address] pH adjusted to patient's actual temperature (Bld) Normal [facility] Comment on above: Order Comment: Speci men Type: ARTERIAL BLOOD SPECIMENOrdering Facility: [facility] Address: [address] [place] [address] Performed By: #### A LLBG ####[facility] RESPIRATORYIA [id number] [facility]OS[facility] RESPIRATORY [id number] [address] [address] Potassium [Moles/Vol] 4.6 mmol/L Normal 3.5-5.0 [facility] Comment on above: Order Comment: Speci men Type: ARTERIAL BLOOD SPECIMENOrdering Facility: [facility] Address: [address] [place] [address] Performed By: #### A LLBG ####[facility]ORY[facility] [id number] [facility]OS[facility] RESPIRATORY [id number] [address] [address] Bacteria Ur Culton 5 Bacteria identified Cx Nom (U) CULTURE, URINE: No growth (<100 CFU/ml) Normal [facility] Comment on above: Performed By: #### 6 30-4 ####[facility] LABCLIA [id number] [address] [address] [place] Basic metabolic 2000 panelon 01-09-2025 Anion gap [Moles/Vol] 13 mmol/L Normal 8-15 [facility] Comment on above: Order Comment: Speci men Type: BLOOD SPECIMENOrdering Facility: [facility] Address: [address] [place] [address] Performed By: #### 1 9123-9, 2276-4, 71595-7, 17616-8 ####[facility] LABORATORYCLIA [id number] [place] [address] [place] Calcium [Mass/Vol] 10.0 mg/dL Normal 8.5-10.2 [facility] Comment on above: Order Comment: Speci men Type: BLOOD SPECIMENOrdering Facility: [facility] Address: [address] [place] [address] Performed By: #### 1 9123-9, 2276-4, 39025-9, 68107-0 ####ADAM LABORATORYCLIA [id number] [place] [address] [place] Chloride [Moles/Vol] 91 mmol/L Low 98-107 [facility] Comment on above: Order Comment: Speci men Type: BLOOD SPECIMENOrdering Facility: [facility] Address: [address] [place] [address] Performed By: #### 1 9123-9, 2276-4, 79368-6, 42020-3 ####[facility] LABORATORYCLIA [id number] [place] [address] [place] CO2 [Moles/Vol] 29 mmol/L Normal 22-30 [facility] Comment on above: Order Comment: Speci men Type: BLOOD SPECIMENOrdering Facility: [facility] Address: [address] [place] [address] Performed By: #### 1 9123-9, 2276-4, 92379-3, 21529-9 ####[facility] LABORATORYCLIA [id number] [place] [address] [place] Creatinine [Mass/Vol] 3.61 mg/dL High 0.73-1.22 [facility] Comment on above: Order Comment: Speci men Type: BLOOD SPECIMENOrdering Facility: [facility] Address: [address] [place] [address] Performed By: #### 1 9123-9, 2276-4, 72195-0, 65176-7 ####[facility] LABORATORYCLIA [id number] [place] [address] [facility] [place] Creatinine and Glomerular filtration rate.predicted panel (S/P/Bld) 18 mL/min/1.73m??? Low >=60 [facility] Comment on above: Order Comment: Speci men Type: BLOOD SPECIMENOrdering Facility: [facility] Address: [address] [place] [address] Result Comment: Caryl mated Glomerular Filtration Rate [...] GFR. Performed By: #### 1 9123-9, 2276-4, 24131-1, 69066-1 ####AR[facility] LABORATORYCLIA [id number] [place] [address] [place] Glucose [Mass/Vol] 57 mg/dL Low 74-99 [facility] Comment on above: Order Comment: Kelsi huff Type: BLOOD SPECIMENOrdering Facility: [facility] Address: [address] [place], [place] [address] Result Comment: The [place] Diabetes Association (ADA) provides guidance for cutoff [...] Standards of Medical Care in Diabetes 2016, [place] [employer]. Diabetes Care. 2016.39(Suppl 1). Performed By: #### 1 9123-9, 6-4, 13732-9, 78036-3 ####AR[facility] LABORATORYCLIA [id number] [place] [id number] [place] Potassium [Moles/Vol] 4.9 mmol/L Normal 3.7-5.1 [facility] Comment on above: Order Comment: Kelsi huff Type: BLOOD SPECIMENOrdering Facility: [facility] Address: [address] [place] [address] Performed By: #### 1 9123-9, 6-4, 05090-9, 15821-9 ####[facility] LABORATORYCLIA [id number] [place] [address] [place] Sodium [Moles/Vol] 133 mmol/L Low 136-144 [facility] Comment on above: Order Comment: Speci men Type: BLOOD SPECIMENOrdering Facility: [facility] Address: [address] [place] [address] Performed By: #### 1 9123-9, 2276-4, 20368-4, 14062-7 ####ADAM LABORATORYCLIA [id number] [place] [address] [place] Urea nitrogen [Mass/Vol] 34 mg/dL High 9-24 [facility] Comment on above: Order Comment: Speci men Type: BLOOD SPECIMENOrdering Facility: [facility] Address: [address] [place] [address] Performed By: #### 1 9123-9, 2276-4, 52264-0, 94047-0 ####ADAM LABORATORYCLIA [id number] [address] [place] CBC panel Auto (Bld)on 01-09 Erythrocyte distribution width (RBC) [Ratio] 15.6 % High 11.5-15.0 [facility] Comment on above: Order Comment: Speci men Type: BLOOD SPECIMENOrdering Facility: [facility] Address: [address] [place] [address] Performed By: #### 5 8410-2 ####ADAM LABORATORYCLIA [id number] [address] [place] Hematocrit (Bld) [Volume fraction] 36.7 % Low 39.0-51.0 [facility] Comment on above: Order Comment: Speci men Type: BLOOD SPECIMENOrdering Facility: [facility] Address: [address] [place] [address] Performed By: #### 5 8410-2 ####ADAM LABORATORYCLIA [id number] [address] [place] Hemoglobin (Bld) [Mass/Vol] 11.7 g/dL Low 13.0-17.0 [facility] Comment on above: Order Comment: Speci men Type: BLOOD SPECIMENOrdering Facility: [facility] Address: [address] [place] [address] Performed By: #### 5 8410-2 ####ADAM LABORATORYCLIA [id number] [address] MCH (RBC) [Entitic mass] 31.5 pg Normal 26.0-34.0 [facility] Comment on above: Order Comment: Speci men Type: BLOOD SPECIMENOrdering Facility: [facility] Address: [address] [place] [address] Performed By: #### 5 8410-2 ####ADAM LABORATORYCLIA [id number] [address] MCHC (RBC) [Mass/Vol] 31.9 g/dL Normal 30.5-36.0 [facility] Comment on above: Order Comment: Speci men Type: BLOOD SPECIMENOrdering Facility: [facility] Address: [address] [place] [address] Performed By: #### 5 8410-2 ####ADAM LABORATORYCLIA [id number] [address] MCV (RBC) [Entitic vol] 98.9 fL Normal 80.0-100.0 [facility] Comment on above: Order Comment: Speci men Type: BLOOD SPECIMENOrdering Facility: [facility] Address: [address] [place] [address] Performed By: #### 5 8410-2 ####ADAM LABORATORYCLIA [id number] [address] Nucleated RBC (Bld) [#/Vol] 10*3/uL Normal <0.01 [facility] Comment on above: Order Comment: Speci men Type: BLOOD SPECIMENOrdering Facility: [facility] Address: [address] [place] [address] Performed By: #### 5 8410-2 ####ADAM LABORATORYCLIA [id number] [address] Platelet mean volume (Bld) [Entitic vol] 10.3 fL Normal 9.0-12.7 [facility] Comment on above: Order Comment: Speci men Type: BLOOD SPECIMENOrdering Facility: [facility] Address: [address] [place] [address] Performed By: #### 5 8410-2 ####ADAM LABORATORYCLIA [id number] [address] Platelets (Bld) [#/Vol] 132 10*3/uL Low 150-400 [facility] Comment on above: Order Comment: Speci men Type: BLOOD SPECIMENOrdering Facility: [facility] Address: [address] [place] [address] Result Comment: No c lot detected. Performed By: #### 5 8410-2 ####ADAM LABORATORYCLIA [id number] [address] [place] RBC (Bld) [#/Vol] 3.71 10*6/uL Low 4.20-6.00 [facility] Comment on above: Order Comment: Speci men Type: BLOOD SPECIMENOrdering Facility: [facility] Address: [address] [place] [address] Performed By: #### 5 8410-2 ####ADAM LABORATORYCLIA [id number] [address] WBC (Bld) [#/Vol] 5.68 10*3/uL Normal 3.70-11.00 [facility] Comment on above: Order Comment: Speci men Type: BLOOD SPECIMENOrdering Facility: [facility] Address: [address] [place] [address] Performed By: #### 5 8410-2 ####ADAM LABORATORYCLIA [id number] [address] CNPNon 01-09-2025 CNPN Telephone (FAMPWS) -- MAURI QUINONES ([id number]) [address] [facility] Date Time Provider Department 01/09/25 RIGOBERTO GOULD During your visit today, we recorded the following information about you: Rebecca Moe LPN 01/09/2025 9:27 AM Signed Tracie from direction Home calling patient was transferred to [facility] with fractured pelvis. Plan to [...] tablet by mouth every morning. - Insulin [place], Disposable, (BD ULTRA-FINE GOLDY PEN NEEDLE) 32 [...] initial *05/07/2022 (more content not included)... Normal [facility] CONSULT PROGon 01-09-2025 CONSULT PROG HNO ID: [id number] Author: JOSAFAT LOREDO MD Service: Nephrology Author [...] 5 mg 3 times a day Normal [facility] Ferritin [facility] 2024 Ferritin [Mass/Vol] 2365.0 ng/mL High 30.3-565.7 [facility] Comment on above: Order Comment: Speci men Type: BLOOD SPECIMENOrdering Facility: [facility] Address: [address] [place] [id number] Performed By: #### 1 9123-9, 2276-4, 74714-5, 38275-4 ####[facility] LABORATORYCLIA [id number] [place], [place] [id number] [place] [address] Hepatic function 2000 panelo n 01-09-2025 Albumin [Mass/Vol] 3.8 g/dL Low 3.9-4.9 [facility] Comment on above: Order Comment: Speci men Type: BLOOD SPECIMENOrdering Facility: [facility] Address: [address] [place] [address] Performed By: #### 1 9123-9, 6-4, 07255-3, 87403-8 ####[facility] LABORATORYCLIA [id number] [address] ALP [Catalytic activity/Vol] 200 U/L High 38-113 [facility] Comment on above: Order Comment: Speci men Type: BLOOD SPECIMENOrdering Facility: [facility] Address: [address] [place] [address] Performed By: #### 1 9123-9, 6-4, 28708-7, 40258-9 ####[facility] LABORATORYCLIA [id number] [address] ALT [Catalytic activity/Vol] 11 U/L Normal 10-54 [facility] Comment on above: Order Comment: Speci men Type: BLOOD SPECIMENOrdering Facility: [facility] Address: [address] [place] [address] Performed By: #### 1 9123-9, 6-4, 55875-2, 60692-6 ####[facility] LABORATORYCLIA [id number] [address] AST [Catalytic activity/Vol] 24 U/L Normal 14-40 [facility] Comment on above: Order Comment: Speci men Type: BLOOD SPECIMENOrdering Facility: [facility] Address: [address] [place] [address] Performed By: #### 1 9123-9, 6-4, 76271-7, 37645-8 ####ADAM LABORATORYCLIA [id number] [place] [id number] [facility] Bilirubin [Mass/Vol] 0.9 mg/dL Normal 0.2-1.3 [facility] Comment on above: Order Comment: Speci men Type: BLOOD SPECIMENOrdering Facility: [facility] Address: [address] [place] [address] Performed By: #### 1 9123-9, 2276-4, 07935-6, 24132-8 ####ARBYRD LABORATORYCLIA [id number] [place] [address] [place] [facility] Bilirubin.conjugated [Mass/Vol] 0.5 mg/dL High <0.3 [facility] Comment on above: Order Comment: Speci men Type: BLOOD SPECIMENOrdering Facility: [facility] Address: [address] [place] [address] Performed By: #### 1 9123-9, 2276-4, 19994-1, 05809-9 ####ARBYRD LABORATORYCLIA [id number] [address] OF [facility] Protein [Mass/Vol] 6.9 g/dL Normal 6.3-8.0 [facility] Comment on above: Order Comment: Speci men Type: BLOOD SPECIMENOrdering Facility: [facility] Address: [address] [place] [address] Performed By: #### 1 9123-9, 6-4, 86387-0, 55412-6 ####ARBYRD LABORATORYCLIA [id number] [address] OF [place] Magnesium SerPl-mCncon 01-09 Magnesium [Mass/Vol] 2.3 mg/dL Normal 1.7-2.3 [facility] Comment on above: Order Comment: Speci men Type: BLOOD SPECIMENOrdering Facility: [facility] Address: [address] [place] [address] Performed By: #### 1 9123-9, 2276-4, 69626-1, 01725-5 ####ARBYRD LABORATORYCLIA [id number] [address] [place] THERAPY NTon 01-09-2025 THERAPY NT HNO ID: [id number] Author: ANAYA WHITE CCC-SENIOR QUALITY ENGINEER Service: Speech/Swallow Author Type: Speech Language Pathologist Type: Therapy (PT/OT/Speech/Resp) Filed: 01/09/2025 13:09 Note Text: -- Summary: Clinical Swallowing Evaluation -- Speech Therapy Clinical Swallow Evaluation SERVICE DATE: 01/09/2025 SERVICE TIME: 1229 to 1256 ROOM: [place] [address] IMPRESSION Swallow Deficits Identified / Suspected: Oral [...] oral phase TREATMENT INTERVENTIONS Clinical Swallow Evaluation (88903), Dysphagia Therapy (12116) Skilled Treatment Time (minutes): 27 TRAINING AND [...] Eat/Drink Without R (more content not included)... [facility] THERAPY NT HNO ID: [id number] Author: CARLOS EDUARDO HELTON OT/Farhana Service: ? Author Type: Occupational Therapist Type: Therapy (PT/OT/Speech/Resp) Filed: 01/09/2025 10:05 Note Text: -- Summary: OT Evaluation -- Occupational Therapy Evaluation Summary SERVICE DATE: 01/09/2025 SERVICE TIME: 915 to 938 ROOM: [place] [address] OT 6 Clicks Score: 14 DISCHARGE RECOMMENDATIONS [...] baseline, appears to be a questionable historian, [place], functioning below baseline with ADLs and mobility/tranfers, [...] and Awareness TREATMENT INTERVENTIONS Evaluation, Therapeutic Activity (83733) Timed Code Treatment (minutes): 8 Skilled Treatment Time (minutes): 23 TRAINING AND EDUCATION PROVIDED Activity Adaptation/Compensatory Strategies, Adaptive Equipment/DME, Bed Mobility, Benefits of In-Hospital Mobility, Cognitive Skills, Command Following, Discharge Planning, Expected Functional Level, Functional Mobility Involving ADLs, Grooming Tasks, Insight into Deficits, Orientation, Memory/Attention, Pain Management, Positioning, Precautions/Restrictions, Role of Occupational Therapy, Safety/Judgment, Sitting Balance to Improve [place] with ADLs/Self-Care, Standing Balance to Improve [place] with ADLs/Self-Care, Transfer - Sit to Stand, Upper Extremity Dressing THE (more content not included)... Normal [facility] THERAPY NT HNO ID: [id number] Author: SONA HILL PT Service: Physical Therapy Author Type: Physical Therapist Type: Therapy (PT/OT/Speech/Resp) Filed: 01/09/2025 10:05 Note Text: -- Summary: PT evaluation -- Physical Therapy Evaluation Summary SERVICE DATE: 01/09/2025 SERVICE TIME: 843 to 926 ROOM: [id number] PT 6 Clicks Score: 9 Overlapped session [...] Reduced mobility-other TREATMENT INTERVENTIONS Evaluation, Therapeutic Activity (39332) Timed Code Treatment (minutes): 17 Skilled Treatment Time (minutes): 32 $ Evaluation-Low (74503) Billed Units: 1 unit Therapeutic Activity (78550) Treatment Minutes: 17 $ Therapeutic Activity (90604) Billed Units: 1 unit Range of Motion: [...] Impact o (more content not included)... Normal [facility] Urinalysis complete panel (U )on 01-09-2025 Bacteria LM.HPF (Urine sed) [#/Area] Moderate Abnormal None Seen [facility] Comment on above: Order Comment: Speci men Type: URINE SPECIMENOrdering Facility: [facility] Address: [address] [place] [address] Performed By: #### 2 4356-8 ####ADAM LABORATORYCLIA [id number] [place] [address] [place] [facility] Bilirubin Ql (U) Normal [facility] Comment on above: Order Comment: Speci men Type: URINE SPECIMENOrdering Facility: [facility] Address: [address] [place] [address] Result Comment: Weldon r interference, unable to perform assay. Performed By: #### 2 4356-8 ####ADAM LABORATORYCLIA [id number] [address] [place] Clarity (Unsp spec) Turbid Abnormal Clear [facility] Comment on above: Order Comment: Speci men Type: URINE SPECIMENOrdering Facility: [facility] Address: [address] [place] [address] Performed By: #### 2 4356-8 ####ADAM LABORATORYCLIA [id number] [place], [place] [address] [place] [address] [place] Color (U) Brown Abnormal Yellow [facility] Comment on above: Order Comment: Speci men Type: URINE SPECIMENOrdering Facility: [facility] Address: [address] [place] [address] Performed By: #### 2 4356-8 ####ADAM LABORATORYCLIA [id number] [address] Glucose Test strip (U) [Mass/Vol] Normal [facility] Comment on above: Order Comment: Speci men Type: URINE SPECIMENOrdering Facility: [facility] Address: [address] [place] [address] Result Comment: Weldon r interference, unable to perform assay. Performed By: #### 2 4356-8 ####ADAM LABORATORYCLIA [id number] [address] Hemoglobin Ql (U) Normal [facility] Comment on above: Order Comment: Speci men Type: URINE SPECIMENOrdering Facility: [facility] Address: [address] [place] [address] Result Comment: Weldon r interference, unable to perform assay. Performed By: #### 2 4356-8 ####ADAM LABORATORYCLIA [id number] [address] Ketones Ql (U) Normal [facility] Comment on above: Order Comment: Speci men Type: URINE SPECIMENOrdering Facility: [facility] Address: [address] [place] [address] Result Comment: Weldon r interference, unable to perform assay. Performed By: #### 2 4356-8 ####ADAM LABORATORYCLIA [id number] [address] Leukocyte esterase Test strip Ql (U) Normal [facility] Comment on above: Order Comment: Speci men Type: URINE SPECIMENOrdering Facility: [facility] Address: [address] [place] [address] Result Comment: Weldon r interference, unable to perform assay. Performed By: #### 2 4356-8 ####ADAM LABORATORYCLIA [id number] [address] [place] Nitrite Ql (U) Normal [facility] Comment on above: Order Comment: Speci men Type: URINE SPECIMENOrdering Facility: [facility] Address: [address] [place] [address] Result Comment: Weldon r interference, unable to perform assay. Performed By: #### 2 4356-8 ####ADAM LABORATORYCLIA [id number] [address] pH (U) Normal [facility] Comment on above: Order Comment: Speci men Type: URINE SPECIMENOrdering Facility: [facility] Address: [address] [place] [address] Result Comment: Weldon r interference, unable to perform assay. Performed By: #### 2 4356-8 ####ADAM LABORATORYCLIA [id number] [address] Protein (U) [Mass/Vol] Normal [facility] Comment on above: Order Comment: Speci men Type: URINE SPECIMENOrdering Facility: [facility] Address: [address] [place] [address] Result Comment: Weldon r interference, unable to perform assay. Performed By: #### 2 4356-8 ####ADAM LABORATORYCLIA [id number] [address] RBC LM.HPF (Urine sed) [#/Area] /[HPF] Abnormal 0-3 /HPF [facility] Comment on above: Order Comment: Speci men Type: URINE SPECIMENOrdering Facility: [facility] Address: [address] [place] [address] Performed By: #### 2 4356-8 ####ADAM LABORATORYCLIA [id number] [place] [address] [place] Specific gravity (U) [Rel density] Normal [facility] Comment on above: Order Comment: Speci men Type: URINE SPECIMENOrdering Facility: [facility] Address: [address] [place] [address] Result Comment: Weldon r interference, unable to perform assay. Performed By: #### 2 4356-8 ####ADAM LABORATORYCLIA [id number] [address] [place] Urobilinogen Ql (U) Normal [facility] Comment on above: Order Comment: Speci men Type: URINE SPECIMENOrdering Facility: [facility] Address: [address] [place] [address] Result Comment: Weldon r interference, unable to perform assay. Performed By: #### 2 4356-8 ####ARBYRD LABORATORYCLIA [id number] [address] [place] WBC LM.HPF (Urine sed) [#/Area] 0-5 /HPF Normal 0-5 /HPF [facility] Comment on above: Order Comment: Speci men Type: URINE SPECIMENOrdering Facility: [facility] Address: [address] [place] [address] Performed By: #### 2 4356-8 ####ARBYRD LABORATORYCLIA [id number] [address] ALLIED HEALTHon 01-08-2025 ALLIED HEALTH HNO ID: [id number] Author: VANDANA SOTO RT(R) Service: Radiology Author [...] PATIENT PRESENTS WITH AN IMPLANTABLE OR ATTACHED FIELD HAND: No RADIOLOGY DEPARTMENT: General X-ray: Exam(s) Completed: Chest X-Ray PERIPHERAL IV DATA: Not applicable SIGNED BY: RT Rosenda(R) January 08, 2025 12:17 PM [facility] HEALTH HNO ID: [id number] Author: MONICA BENITEZ CT Service: Radiology Author [...] PATIENT PRESENTS WITH AN IMPLANTABLE OR ATTACHED FIELD HAND: No RADIOLOGY DEPARTMENT: CT; Exam(s) Completed: Brain PERIPHERAL IV DATA: Not applicable SIGNED BY: WILLIAMS Mojica January 08, 2025 11:37 AM [facility] ARTERIAL BLOOD GASESon 01-08 Base excess Calc (Bld) [Moles/Vol] 3 mmol/L High 0-2 [facility] Comment on above: Order Comment: Kelsi huff Type: ARTERIAL BLOOD SPECIMENOrdering Facility: [facility] Address: [address] [place] [address] Performed By: #### A LLBG ####ARBYRD RESPIRATORYCLIA [id number] [facility]AT[facility] [id number] [place] [address] Carboxyhemoglobin (BldA) [Mass fraction] 2.1 % High 0.0-2.0 [facility] Comment on above: Order Comment: Kelsi huff Type: ARTERIAL BLOOD SPECIMENOrdering Facility: [facility] Address: [address] [place] [address] Result Comment: Carb oxyhemoglobin Reference Range for Smokers: 2.0-8.0% Performed By: #### A LLBG ####ARBYRD RESPIRATORYIA [id number] HOSP[facility] RES[facility]IRAT[facility] [id number] [address] [address] CO2 (Bld) [Partial pressure] 60 mm Hg High 36-46 [facility] Comment on above: Order Comment: Speci men Type: ARTERIAL BLOOD SPECIMENOrdering Facility: [facility] Address: [address] [place] [id number] Performed By: #### A LLBG ####[facility]ATORYGR[facility] [id number] [facility]OS[facility] RESPIRATORY [id number] [address] HCO3 (Bld) [Moles/Vol] 31 mmol/L High 22-26 [facility] Comment on above: Order Comment: Speci men Type: ARTERIAL BLOOD SPECIMENOrdering Facility: [facility] Address: [address] [place] [address] Performed By: #### A LLBG ####[facility]PIRATORYGR[facility]OTT[facility] [id number] HOSP[facility] RESPIRATORY [id number] [address] [address] Hemoglobin (Bld) [Mass/Vol] 12.3 g/dL Low 13.0-17.0 [facility] Comment on above: Order Comment: Speci men Type: ARTERIAL BLOOD SPECIMENOrdering Facility: [facility] Address: [address] [place] [id number] Performed By: #### A LLBG ####[facility]ATORYGR[facility] [id number] HOSP[facility] RESPIRATORY [id number] [address] [address] LITERS 2 Liters/min Normal [facility] Comment on above: Order Comment: Speci men Type: ARTERIAL BLOOD SPECIMENOrdering Facility: [facility] Address: [address] [place] [address] Performed By: #### A LLBG ####[facility] [id number] [facility]OS[facility] RESPIRATORY [id number] [address] [address] Oxygen (Bld) [Partial pressure] 66 mm Hg Low 85-95 [facility] Comment on above: Order Comment: Speci men Type: ARTERIAL BLOOD SPECIMENOrdering Facility: [facility] Address: [address] [place] [address] Performed By: #### A LLBG ####[facility]ATORYGR[facility] [id number] [facility] RESPIRATORY [id number] [address] Oxyhemoglobin (BldA) [Mass fraction] 90 % Low 95-98 [facility] Comment on above: Order Comment: Speci men Type: ARTERIAL BLOOD SPECIMENOrdering Facility: [facility] Address: [address] [place] [address] Performed By: #### A LLBG ####[facility]PIRATORYGR[facility] [id number] [facility]OS[facility] RESPIRATORY [id number] [address] [address] Potassium [Moles/Vol] 5.4 mmol/L High 3.5-5.0 [facility] Comment on above: Order Comment: Speci men Type: ARTERIAL BLOOD SPECIMENOrdering Facility: [facility] Address: [address] [place] [address] Performed By: #### A LLBG ####[facility]ATORYGR[facility] [id number] [facility] RESPIRAT[facility] [id number] [address] [address] Base excess Calc (Bld) [Moles/Vol] 2 mmol/L Normal 0-2 [facility] Comment on above: Order Comment: Speci men Type: ARTERIAL BLOOD SPECIMENOrdering Facility: [facility] Address: [address] [place] [address] Performed By: #### A LLBG ####[facility]ORYGR[facility] [id number] [facility]OS[facility] RESPIRATORY [id number] [address] [address] Carboxyhemoglobin (BldA) [Mass fraction] 2.3 % High 0.0-2.0 [facility] Comment on above: Order Comment: Speci men Type: ARTERIAL BLOOD SPECIMENOrdering Facility: [facility] Address: [address] [place] [address] Result Comment: Carb oxyhemoglobin Reference Range for Smokers: 2.0-8.0% Performed By: #### A LLBG ####ARBYRD RESPIRATORYIA [id number] HOSPITAL RESPIRATORY [id number] [address] [address] CO2 (Bld) [Partial pressure] 59 mm Hg High 36-46 [facility] Comment on above: Order Comment: Speci men Type: ARTERIAL BLOOD SPECIMENOrdering Facility: [facility] Address: [address] [place] [address] Performed By: #### A LLBG ####[facility]ATORYGR[facility]OTT[facility] [id number] [facility] RESPIRAT[facility] [id number] [address] [address] CO2 adjusted to patient's actual temperature (Bld) [Partial pressure] Normal [facility] Comment on above: Order Comment: Speci men Type: ARTERIAL BLOOD SPECIMENOrdering Facility: [facility] Address: [address] [place] [address] Performed By: #### A LLBG ####[facility] [id number] [facility]OSP[facility] RESPIRATORY [id number] [address] [address] HCO3 (Bld) [Moles/Vol] 30 mmol/L High 22-26 [facility] Comment on above: Order Comment: Speci men Type: ARTERIAL BLOOD SPECIMENOrdering Facility: [facility] Address: [address] [place] [address] Performed By: #### A LLBG ####[facility] [id number] [facility]OS[facility] RESPIRATORY [id number] [address] [address] Hemoglobin (Bld) [Mass/Vol] 12.5 g/dL Low 13.0-17.0 [facility] Comment on above: Order Comment: Speci men Type: ARTERIAL BLOOD SPECIMENOrdering Facility: [facility] Address: [address] [place] [address] Performed By: #### A LLBG ####[facility] [id number] [facility]OS[facility] RESPIRATORY [id number] [address] [address] Lactate [Moles/Vol] 0.9 mmol/L Normal 0.5-2.2 [facility] Comment on above: Order Comment: Speci men Type: ARTERIAL BLOOD SPECIMENOrdering Facility: [facility] Address: [address] [place] [address] Performed By: #### A LLBG ####[facility]ATORYGR[facility] [id number] HOSP[facility] RESPIRATORY [id number] [address] [address] LITERS 1 Liters/min Normal [facility] Comment on above: Order Comment: Speci men Type: ARTERIAL BLOOD SPECIMENOrdering Facility: [facility] Address: [address] [place] [phone] Performed By: #### A LLBG ####[facility]ATORYGR[facility] [id number] HOS[facility] RESPIRATORY [id number] [address] [address] Methemoglobin (Bld) [Mass fraction] % Normal 0.0-1.5 [facility] Comment on above: Order Comment: Speci men Type: ARTERIAL BLOOD SPECIMENOrdering Facility: [facility] Address: [address] [place] [address] Performed By: #### A LLBG ####[facility]ATORYGR[facility] [id number] [facility]OS[facility] RESPIRATORY [id number] [address] [address] O2 THERAPY [place] = Nasal Cannula Normal [facility] Comment on above: Order Comment: Speci men Type: ARTERIAL BLOOD SPECIMENOrdering Facility: [facility] Address: [address] [place] [address] Performed By: #### A LLBG ####[facility]ORYGR[facility] [id number] HOSPITAL RESPIRATORY [id number] [address] [address] Oxygen (Bld) [Partial pressure] 82 mm Hg Low 85-95 [facility] Comment on above: Order Comment: Speci men Type: ARTERIAL BLOOD SPECIMENOrdering Facility: [facility] Address: [address] [place] [id number] Performed By: #### A LLBG ####[facility]ORYGR[facility] [id number] HOSPITAL RESPIRATORY [id number] [address] Oxygen adjusted to patient's actual temperature (Bld) [Partial pressure] Normal [facility] Comment on above: Order Comment: Speci men Type: ARTERIAL BLOOD SPECIMENOrdering Facility: [facility] Address: [address] [place] [address] Performed By: #### A LLBG ####[facility]ATORYGR[facility] [id number] HOS[facility] RESPIRATORY [id number] [address] Oxyhemoglobin (BldA) [Mass fraction] 94 % Low 95-98 [facility] Comment on above: Order Comment: Speci men Type: ARTERIAL BLOOD SPECIMENOrdering Facility: [facility] Address: [address] [place] [address] Performed By: #### A LLBG ####[facility] [id number] [facility] RESPIRATORY [id number] [place] [address] pH (Bld) 7.31 [pH] Low 7.35-7.45 [facility] Comment on above: Order Comment: Speci men Type: ARTERIAL BLOOD SPECIMENOrdering Facility: [facility] Address: [address] [place] [address] Performed By: #### A LLBG ####[place] [id number] [place] [address] RESPIRATORY [id number] [address] pH adjusted to patient's actual temperature (Bld) Normal [facility] Comment on above: Order Comment: Speci men Type: ARTERIAL BLOOD SPECIMENOrdering Facility: [facility] Address: [address] [place] [address] Performed By: #### A LLBG ####[facility]ATORYGR[facility]OTT[facility] [id number] [facility]OS[facility] RESPIRATORY [id number] [address] [address] Potassium [Moles/Vol] 5.3 mmol/L High 3.5-5.0 [facility] Comment on above: Order Comment: Speci men Type: ARTERIAL BLOOD SPECIMENOrdering Facility: [facility] Address: [address] [place] [address] Performed By: #### A LLBG ####[facility] RESPIRATORY[id number] [facility] RES[facility]AT[facility] [id number] [address] [address] Ammonia Plas-sCncon 01-09-20 25 Ammonia (P) [Moles/Vol] 13 umol/L Low 16-60 [facility] Comment on above: Order Comment: Speci men Type: BLOOD SPECIMENOrdering Facility: [facility] Address: [address] [place] [address] Performed By: #### 1 6362-6 ####ADAM LABORATORYCLIA [id number] [place] [address] [place] Basic metabolic 2000 panelon 01-08-2025 Anion gap [Moles/Vol] 14 mmol/L Normal 8-15 [facility] Comment on above: Order Comment: Speci men Type: BLOOD SPECIMENOrdering Facility: [facility] Address: [address] [place] [address] Performed By: #### 2 4321-2 ####ADAM LABORATORYCLIA [id number] [place] [address] [place] Calcium [Mass/Vol] 9.9 mg/dL Normal 8.5-10.2 [facility] Comment on above: Order Comment: Speci men Type: BLOOD SPECIMENOrdering Facility: [facility] Address: [address] [place] [address] Performed By: #### 2 4321-2 ####ADAM LABORATORYCLIA [id number] [place] [address] [place] Chloride [Moles/Vol] 91 mmol/L Low 98-107 [facility] Comment on above: Order Comment: Speci men Type: BLOOD SPECIMENOrdering Facility: [facility] Address: [address] [place] [address] Performed By: #### 2 4321-2 ####ADAM LABORATORYCLIA [id number] [place] [address] [place] CO2 [Moles/Vol] 29 mmol/L Normal 22-30 [facility] Comment on above: Order Comment: Speci men Type: BLOOD SPECIMENOrdering Facility: [facility] Address: [address] [place] [address] Performed By: #### 2 4321-2 ####ADAM LABORATORYCLIA [id number] [place] [id number] [place] Creatinine [Mass/Vol] 4.87 mg/dL High 0.73-1.22 [facility] Comment on above: Order Comment: Kelsi huff Type: BLOOD SPECIMENOrdering Facility: [facility] Address: [address] [place] [address] Performed By: #### 2 4321-2 ####AR[facility] LABORATORYCLIA [id number] [place] [id number] [facility] Creatinine and Glomerular filtration rate.predicted panel (S/P/Bld) 12 mL/min/1.73m??? Low >=60 [facility] Comment on above: Order Comment: Kelsi huff Type: BLOOD SPECIMENOrdering Facility: [facility] Address: [address] [place] [address] Result Comment: Caryl mated Glomerular Filtration Rate [...] Performed By: #### 2 4321-2 ####ADAM LABORATORYCLIA [id number] [place] [id number] [place] Glucose [Mass/Vol] 100 mg/dL High 74-99 [facility] Comment on above: Order Comment: Kelsi huff Type: BLOOD SPECIMENOrdering Facility: [facility] Address: [address] [place] [address] Result Comment: The [place] [employer] (ADA) provides guidance for cutoff [...] Standards of Medical Care in Diabetes 2016, [place] [employer]. Diabetes Care. 2016.39(Suppl 1). Performed By: #### 2 4321-2 ####ADAM LABORATORYCLIA [id number] [address] Potassium [Moles/Vol] 5.3 mmol/L High 3.7-5.1 [facility] Comment on above: Order Comment: Speci men Type: BLOOD SPECIMENOrdering Facility: [facility] Address: [address] [place] [address] Performed By: #### 2 4321-2 ####ADAM LABORATORYCLIA [id number] [address] Sodium [Moles/Vol] 134 mmol/L Low 136-144 [facility] Comment on above: Order Comment: Samanthai daria Type: BLOOD SPECIMENOrdering Facility: [facility] Address: [address] [place] [address] Performed By: #### 2 4321-2 ####ADAM LABORATORYCLIA [id number] [address] STATES [facility] Urea nitrogen [Mass/Vol] 54 mg/dL High 9-24 [facility] Comment on above: Order Comment: Kelsi huff Type: BLOOD SPECIMENOrdering Facility: [facility] Address: [address] [place] [address] Performed By: #### 2 4321-2 ####ADAM LABORATORYCLIA [id number] [address] CBC panel Auto (Bld)on 01-08 Erythrocyte distribution width (RBC) [Ratio] 16.0 % High 11.5-15.0 [facility] Comment on above: Order Comment: Samanthai men Type: BLOOD SPECIMENOrdering Facility: [facility] Address: [address] [place] [address] Performed By: #### 5 8410-2 ####ADAM LABORATORYCLIA [id number] [address] Hematocrit (Bld) [Volume fraction] 36.0 % Low 39.0-51.0 [facility] Comment on above: Order Comment: Speci men Type: BLOOD SPECIMENOrdering Facility: [facility] Address: [address] [place] [address] Performed By: #### 5 8410-2 ####ADAM LABORATORYCLIA [id number] [address] Hemoglobin (Bld) [Mass/Vol] 11.4 g/dL Low 13.0-17.0 [facility] Comment on above: Order Comment: Speci men Type: BLOOD SPECIMENOrdering Facility: [facility] [facility] Address: [address] [place] [address] Performed By: #### 5 8410-2 ####ADAM LABORATORYCLIA [id number] [address] MCH (RBC) [Entitic mass] 31.7 pg Normal 26.0-34.0 [facility] Comment on above: Order Comment: Speci men Type: BLOOD SPECIMENOrdering Facility: [facility] Address: [address] [place] [address] Performed By: #### 5 8410-2 ####ADAM LABORATORYCLIA [id number] [address] MCHC (RBC) [Mass/Vol] 31.7 g/dL Normal 30.5-36.0 [facility] Comment on above: Order Comment: Speci men Type: BLOOD SPECIMENOrdering Facility: [facility] Address: [address] [place] [address] Performed By: #### 5 8410-2 ####ADAM LABORATORYCLIA [id number] [address] MCV (RBC) [Entitic vol] 100.0 fL Normal 80.0-100.0 [facility] Comment on above: Order Comment: Speci men Type: BLOOD SPECIMENOrdering Facility: [facility] Address: [address] [place] [address] Performed By: #### 5 8410-2 ####ADAM LABORATORYCLIA [id number] [address] Nucleated RBC (Bld) [#/Vol] 10*3/uL Normal <0.01 [facility] Comment on above: Order Comment: Speci men Type: BLOOD SPECIMENOrdering Facility: [facility] Address: [address] [place] [address] Performed By: #### 5 8410-2 ####ADAM LABORATORYCLIA [id number] [place] [address] [place] Platelet mean volume (Bld) [Entitic vol] 10.1 fL Normal 9.0-12.7 [facility] Comment on above: Order Comment: Speci men Type: BLOOD SPECIMENOrdering Facility: [facility] Address: [address] [place] [address] Performed By: #### 5 8410-2 ####ADAM LABORATORYCLIA [id number] [place] [address] [place] Platelets (Bld) [#/Vol] 122 10*3/uL Low 150-400 [facility] Comment on above: Order Comment: Speci men Type: BLOOD SPECIMENOrdering Facility: [facility] Address: [address] [place] [address] Result Comment: No c lot detected. Performed By: #### 5 8410-2 ####ADAM LABORATORYCLIA [id number] [place] [address] [place] RBC (Bld) [#/Vol] 3.60 10*6/uL Low 4.20-6.00 [facility] Comment on above: Order Comment: Speci men Type: BLOOD SPECIMENOrdering Facility: [facility] Address: [address] [place] [address] Performed By: #### 5 8410-2 ####ADAM LABORATORYCLIA [id number] [place] [address] [place] WBC (Bld) [#/Vol] 6.19 10*3/uL Normal 3.70-11.00 [facility] Comment on above: Order Comment: Speci men Type: BLOOD SPECIMENOrdering Facility: [facility] Address: [address] [place] [address] Performed By: #### 5 8410-2 ####ADAM LABORATORYIA [id number] [place] [address] [place] CONSULTon 01-08-2025 CONSULT HNO ID: [id number] Author: SCOTT SAUCEDO MD Service: Orthopaedic Surgery [...] Acute on chronic diastolic congestive heart failure ([facility]) 07/14/2018 GARRET (acute kidney injury) 03/24/2019 GARRET (acute kidney injury) 03/24/2019 Ankylosing spondylitis ([facility]) CAD (coronary artery disease) Cellulitis Chronic combined systolic and diastolic CHF (congestive heart failure) ([facility]) 03/24/2019 CKD (chronic kidney disease) stage 3, GFR 30-59 ml/min ([facility]) 03/24/2019 Constipation Diabetes ([facility]) Gout High phosphate levels 03/24/2019 History of [...] valve calcifi NSTEMI (non-ST elevated myocardial infarction) ([facility]) 03/12/2017 [facility] admit Osteoarthritis Transition of care performed with sharing of clinical summary 04/08/2019 Admit [facility] 03/21/19-03/22/19 Discharge diagnoses chronic kidney disease with worsening creatinine, acute kidney injury Hypokalemia Toxic encephalopathy secondary to Flexeril overusage Type 2 diabetes Ischemic cardiomyopathy Coronary artery disease Ligamental cervical neck strain and acute Pulmonary hypertension Hypertension Pyuria Preadmit: to [facility] ED with slurred speech, lethargy. PSHX [...] pain in hip with log roll Normal [facility] CONSULT PROGon 01-08-2025 CONSULT PROG HNO ID: [id number] Author: JOSAFAT LOREDO MD Service: Nephrology Author [...] midodrine 5 mg 3 times a day [facility] CT BRAIN WO IVCONon 01-09-20 CT BRAIN WO IVCON * * *Final Report* * * DATE OF EXAM: Jan 08 2025 11:38AM [facility] 0504 - CT BRAIN WO IVCON / [...] AN ACUTE INTRACRANIAL PROCESS Maxillary sinus disease. [employer] Person[employer] Specialist: PSCB Transcribe Date/Time: Jan 08 2025 11:42A Dictated by : SONG DE LA GARZA MD This examination was interpreted and the report reviewed and electronically signed by: SONG DE LA GARZA MD on Jan 08 2025 11:44AM EST [id number] Normal [facility] PTH-Intact SerPl-mCncon 05- Parathyrin.intact [Mass/Vol] 254 pg/mL High 15 [facility] Comment on above: Order Comment: Speci men Type: BLOOD SPECIMENOrdering Facility: [facility] Address: [address] [place] [address] Performed By: #### 2 731-8 ####[facility] LABCLIA [id number] [place] [address] [place] THERAPY NTon 01-08-2025 THERAPY NT HNO ID: [id number] Author: SONA HILL PT Service: Physical Therapy Author Type: Physical Therapist Type: Therapy (PT/OT/Speech/Resp) Filed: 01/08/2025 16:37 Note Text: -- Summary: PT missed visit -- PHYSICAL THERAPY MISSED VISIT SERVICE DATE: 01/08/2025 SERVICE TIME: 1620 ROOM: [place] [address] Patient not seen due to Clinical Appropriateness.discussed [...] DATE: January 08, 2025 TIME: 4:34 PM [facility] THERAPY NT HNO ID: [id number] Author: CARLOS EDUARDO HELTON OT/Farhana Service: ? Author Type: Occupational Therapist Type: Therapy (PT/OT/Speech/Resp) Filed: 01/08/2025 10:49 Note Text: -- Summary: OT missed visit -- OCCUPATIONAL THERAPY MISSED VISIT SERVICE DATE: 01/08/2025 SERVICE TIME: 0715 ROOM: [place] [address] Patient not seen due to Incomplete Orders. [...] DATE: January 08, 2025 TIME: 7:15 AM [facility] XR CHEST 1V FRONTAL PORTon 0 [...] as discussed under Results portion of report. [employer] Person[employer] Specialist: PSCB Transcribe Date/Time: Jan 08 2025 12:17P Dictated by : OSMAN JORDAN DO This examination was interpreted and the report reviewed and electronically signed by: OSMAN JORDAN DO on Jan 08 2025 12:19PM EST [id number] [facility] CONSULTon 01-07-2025 CONSULT HNO ID: [id number] Author: JOSAFAT LOREDO MD Service: Nephrology Author [...] Acute on chronic diastolic congestive heart failure ([facility]) 07/14/2018 GARRET (acute kidney injury) 03/24/2019 [facility]RET (acute kidney injury) 03/24/2019 Ankylosing spondylitis ([facility]) CAD (coronary artery disease) Cellulitis Chronic combined systolic and diastolic CHF (congestive heart failure) ([facility]) 03/24/2019 CKD (chronic kidney disease) stage 3, GFR 30-59 ml/min ([facility]) 03/24/2019 Constipation Diabetes ([facility]) Gout High phosphate levels 03/24/2019 History of [...] valve calcifi NSTEMI (non-ST elevated myocardial infarction) ([facility]) 03/12/2017 [facility] admit Osteoarthritis Transition of care performed with sharing of clinical summary 04/08/2019 Admit [facility] 03/21/19-03/22/19 Discharge diagnoses chronic kidney disease with worsening creatinine, acute kidney injury Hypokalemia Toxic encephalopathy secondary to Flexeril overusage Type 2 diabetes Ischemic cardiomyopathy Coronary artery disease Ligamental cervical neck strain and acute Pulmonary hypertension Hypertension Pyuria Preadmit: to [facility] ED with slurred speech, lethargy. PAST [...] Sig: Take 1 tablet by mouth. Insulin [place], Disposable, (BD ULTRA-FINE GOLDY PEN NEEDLE) 32 [...] as needed (more content not included)... Normal [facility] HISTORY PHYSICALon HISTORY PHYSICAL HNO ID: [id number] Author: SHE OHARA DO Service: Hospital Medicine Author Type: Physician Type: H&P Filed: 01/07/2025 14:03 Note Text: DEPARTMENT OF HOSPITAL MEDICINE HISTORY AND PHYSICAL EXAM SERVICE DATE: 01/07/2025 SERVICE TIME: 10:50 AM Primary Care Physician: Rigoberto Gould MD NIGHT AND WEEKEND COVERAGE: [facility] COVERAGE: Days: [phone], please page attending physician. Nights: [phone], please page [facility] Night coverage pager [phone]. Subjective CHIEF COMPLAINT: Fall and left hip [...] except for Na 134 and bun 32 host/hostess head 3.12. INR was 1.2. CT brain without acute process. Xray of the pelvis showed no fracture. CT of the pelvis was done due to pain and showed minimally displaced fracture of the left sacrum, questionable minimally displaced fracture of the left superior pelvic ramus, no evidence of R KEMAR hardware complication He was transferred to [facility] for evaluation by orthopedics. PAST MEDICAL HISTORY Diagnosis Date Acute on chronic diastolic congestive heart failure (HCC) 07/14/2018 GARRET (acute kidney injury) 03/24/2019 GARRET (acute kidney injury) 03/24/2019 Ankylosing spondylitis ([facility]) CAD (coronary artery disease) Cellulitis Chronic combined systolic and diastolic CHF (congestive heart failure) ([facility]) 03/24/2019 CKD (chronic kidney disease) stage 3, GFR 30-59 ml/min ([facility]) 03/24/2019 Constipation Diabetes ([facility]) Gout High phosphate levels 03/24/2019 History of [...] NSTEMI (non-ST elevated myocardial infarction) (HCC) 03/12/2017 [facility] admit Osteoarthritis Transition of care performed with sharing of clinical summary 04/08/2019 Admit [facility] 03/21/19-03/22/19 Discharge diagnoses chronic kidney disease with worsening creatinine, acute kidney injury Hypokalemia Toxic encephalopathy secondary to Flexeril overusage Type 2 diabetes Ischemic cardiomyopathy Coronary artery disease Ligamental cervical neck strain and acute Pulmonary hypertension Hypertension Pyuria Preadmit: to [facility] ED with slurred speech, lethargy. PAST [...] Sig: Take 1 tablet by mouth. Insulin [place], Disposable, (BD ULTRA-FINE GOLDY PEN NEEDLE) 32 gauge x No No Sig: Use one needle for each dose. once/day. LANTUS SOLOSTAR U-100 INSULIN 100 unit/mL (3 mL) 01/06/2025 No Yes Sig: Inject 10 Units subcutaneously daily at bedtime. Tadalafil (CIALIS) 20 mg tablet No No Sig: Take 1 tablet b (more content not included)... [facility] 12 Lead EKGon 01-06-2025 12 Lead EKG [facility] Cardiovascular Services [address] [place] [address] 12 Lead EKG 01/06/25 1852 MR#: [id number] Acct: [id number] Name: MAURI QUINONES Rep #: [id number] : 1955 69 From: José Miguel Nunez [...] Confirmed by JOSÉ MIGUEL NUNEZ MD ([id number]), graphics editor EDELMIRA MANLEY ([id number]) on 01/12/2025 8:59:24 AM Referred By: Confirmed By: JOSÉ MIGUEL NUNEZ MD 01/12/25 0859 Date José Miguel Nunez MD CC: Dr. Ra Aaron DO; Dr. Martín Romano DO; Dr. Rigoberto Gould MD Signed [facility] Absolute lymphocyte countOrd ered By: Martín Romano on 01-06-2025 Lymphocytes Auto (Unsp spec) [#/Vol] 0.63 10*3/uL Low 0.83-4.51 [facility] Activated partial thrombopla stin time (aPTT) in platelet poor plasma by coagulation aOrdered By: Martín Romano on 01-06-2025 aPTT Coag (PPP) [Time] 32.1 s 24.1-36.2 [facility] Anion gap in Serum or Plasma Ordered By: Martín Romano on 01-06-2025 Anion gap [Moles/Vol] 14 mmol/L 5-15 [facility] Automated lymphocyte count a s percentage of total leukocytesOrdered By: Martín Romano on 01-06-2025 Lymphocytes/100 WBC Auto (Unsp spec) 7.5 % Low 19-41 [facility] BUN/creatinine ratioOrdered By: Martín Romano on 01-06-2025 Urea nitrogen/Creatinine [Mass ratio] 10.1 mg/mg 10- [facility] Basic Metabolic Profile (BMP )on 01-06-2025 BUN/CRE 10.1 RATIO Normal 10- [facility] Comment on above: Performed By: #### L 501.080 #### [facility] Laboratory [address] [place], [address] Calcium [Mass/Vol] 9.7 mg/dL Normal 7.6-11.0 [place] Comment on above: Performed By: #### L 501.080 #### [facility] [address] [place], [address] Chloride [Moles/Vol] 92 mmol/L Low 98-108 [facility] Comment on above: Performed By: #### L 501.080 #### [facility] [address] [place], [address] CO2 [Moles/Vol] 28.6 mmol/L Normal 21.0-32.0 [facility] Comment on above: Performed By: #### L 501.080 #### [facility] [address] [place], [address] Creatinine [Mass/Vol] 3.12 mg/dL High 0.70-1.20 [facility] Comment on above: Performed By: #### L 501.080 #### [facility] [address] [place], [address] ECRCL 23.72 ml/min Low 50-250 [facility] Comment on above: Performed By: #### L 501.080 #### [facility] [address] [place], [address] GAP 14 Normal 5-15 [facility] Comment on above: Performed By: #### L 501.080 #### [facility] [address] [place], [address] GFR/1.73 sq M.predicted among non-blacks MDRD (S/P/Bld) [Vol rate/Area] 21 mL/min/{1.73_m2} Low >60 [facility] Comment on above: Result Comment: mL/m in/1.73m2 CKD-EPI Creatinine Equation (2020) Performed By: #### L 501.080 #### [facility] [address] [place], [address] Glucose [Mass/Vol] 126 mg/dL High 70-99 [place] Comment on above: Performed By: #### L 501.080 #### [facility] [address] [place], [address] Potassium [Moles/Vol] 3.8 mmol/L Normal 3.3-5.1 [facility] Comment on above: Performed By: #### L 501.080 #### [facility] [address] [place], [address] Sodium [Moles/Vol] 134 mmol/L Normal 133-145 [place] Comment on above: Performed By: #### L 501.080 #### [facility] [address] [place], [address] Urea nitrogen [Mass/Vol] 32 mg/dL High 4-19 [facility] Comment on above: Performed By: #### L 501.080 #### [facility] [address] [place], [place], [address] Basophil percentageOrdered B y: Martín Romano on 01-06-2025 Basophils/100 WBC (Bld) 0.5 % 0-1 [facility] Brain/Head without Contrasto n 01-06-2025 Brain/Head without Contrast [facility] Imaging Services [address] [place] [place], [place] [address] Brain/Head without Contrast MR#: [id number] Acct: [id number] Name: MAURI QUINONES Rep #: [id number] : 1955 M 69 From: Vincent Monteiro MD PCP: Dr. Rigoberto Gould MD Status: REG ER Study: Brain/Head without Contrast Date of Exam: 12/25 11/18 Exam# [id number] Ordering Dr: Martín Romano DO PROCEDURE: BRAIN/HEAD [...] changes. Reading Location: [facility] CC: Dr. Martín Romano DO; Dr. Rigoberto Gould MD [employer] Personnel Specialist: Signed Normal [facility] CBC W/Diff, Automatedon 05-1 -2024 Absolute Lymph 0.63 X10 3/uL Low 0.83-4.51 [facility] Comment on above: Performed By: #### L 501.080 #### [facility] Laboratory [address] [place], [address] Absolute Neut 6.8 X10 3/uL Normal 2.0-7.7 [facility] Comment on above: Performed By: #### L 501.080 #### [facility] [address] [place], [address] Basophils/100 WBC (Bld) 0.5 % Normal 0-1 [facility] Comment on above: Performed By: #### L 501.080 #### [facility] [address] [place], [address] Eosinophils/100 WBC (Bld) 1.1 % Normal 0-5 [facility] Comment on above: Performed By: #### L 501.080 #### [facility] [address] [place], [address] Erythrocyte distribution width (RBC) [Ratio] 15.9 % High 11.6-14.6 [facility] Comment on above: Performed By: #### L 501.080 #### [facility] [address] [place], [address] Hematocrit (Bld) [Volume fraction] 38.4 % Low 40-54 [facility] Comment on above: Performed By: #### L 501.080 #### [facility] [address] [place], [address] Hemoglobin (Bld) [Mass/Vol] 12.7 g/dL Low 13.0-16.5 [facility] Comment on above: Performed By: #### L 501.080 #### [facility] [address] [place], [address] IG% 1.000 High 0.0-0.9 [facility] Comment on above: Result Comment: IG% - Immature Granulocytes (promyelocytes, myelocytes and metamyelocytes) > 1% indicates that a LEFT SHIFT is Present. Performed By: #### L 501.080 #### [facility] [address] [place], [address] Lymphocytes/100 WBC (Bld) 7.5 % Low 19-41 [facility] Comment on above: Performed By: #### L 501.080 #### [facility] [address] [place], [address] MCH (RBC) [Entitic mass] 32.1 pg High 27.0-32.0 [facility] Comment on above: Performed By: #### L 501.080 #### [facility] [address] [place], [address] MCHC (RBC) [Mass/Vol] 33.1 g/dL Normal 32-36 [facility] Comment on above: Performed By: #### L 501.080 #### [facility] [address] [place], [address] MCV (RBC) [Entitic vol] 97.0 fL High 80-94 [facility] Comment on above: Performed By: #### L 501.080 #### [facility] [address] [place], [address] Monocytes/100 WBC (Bld) 8.8 % Normal 0-10 [facility] Comment on above: Performed By: #### L 501.080 #### [facility] [address] [place], [address] Neutrophils/100 WBC (Bld) 81.1 % High 47-70 [facility] Comment on above: Performed By: #### L 501.080 #### [facility] [address] [place], [address] Nucleated RBC (Bld) [#/Vol] 0 10*3/uL Normal 0-5 [facility] Comment on above: Performed By: #### L 501.080 #### [facility] Laboratory [address] [place], [address] Platelet mean volume (Bld) [Entitic vol] 10.2 fL Normal 6.2-12.0 [facility] Comment on above: Performed By: #### L 501.080 #### [facility] [address] [place], [address] Platelets (Bld) [#/Vol] 137 10*3/uL Low 150-450 [facility] Comment on above: Performed By: #### L 501.080 #### [facility] [address] [place], [address] RBC (Bld) [#/Vol] 3.96 10*6/uL Low 4.6-6.2 [facility] Comment on above: Performed By: #### L 501.080 #### [facility] [address] [place], [address] RDW SD 56.9 fl High 35.1-43.9 [facility] Comment on above: Performed By: #### L 501.080 #### [facility] Laboratory [address] [place], [address] WBC (Bld) [#/Vol] 8.4 10*3/uL Normal 4.4-11.0 [place] Comment on above: Performed By: #### L 501.080 #### [facility] Laboratory [address] [place], [address] CNNURSEon 01-06-2025 CNNURSE Nurse Visit (UROLMD) -- QUINONESMAURI CHANEL ([id number]) 1955 M [facility] Date Time Provider Department 01/06/25 1:00 PM NURSE MARTÍNEZ ADAM LINO During your visit today, we recorded the following information about you: Nick Muñoz, RN 01/23/2025 10:48 AM Signed Patient presents [...] tablet by mouth every morning. - Insulin [place], Disposable, (BD ULTRA-FINE GOLDY PEN NEEDLE) 32 [...] [D50.0] 04/30 (more content not included)... Normal [facility] Carbon dioxide, total [Moles /volume] in Central venous bloodOrdered By: Martín Romano on 01-06-2025 CO2 [Moles/Vol] 28.6 mmol/L 21.0-32.0 [facility] Chloride assayOrdered By: Mic Romano on 01-06-2025 Chloride [Moles/Vol] 92 mmol/L Low 98-108 [facility] Emergency Department Summary on 01-06-2025 Emergency Department Summary [facility] Medical Records Department [address] [place] [address] Emergency Department Summary 01/06/25 MR#: [id number] Acct: [id number] Name: MAURI QUINONES Rep #: [id number] : 1955 69 From: Martín Harrison PCP: [...] He is currently followed by orthopedist at [facility] Colleen Fuentes, states has spurs in his [...] effusion HTN (hypertension) Ventricular tachyarrhythmia Atherosclerosis of [place] coronary artery of [place] heart without angina pectoris Pulmonary HTN Cardiomyopathy [...] Genitourinary Genitourinary (more content not included)... Normal [facility] Eosinophil percentageOrdered By: Martín Romano on 01-06-2025 Eosinophils/100 WBC (Bld) 1.1 % 0-5 [facility] Erythrocyte distribution wid th ratioOrdered By: Martín Romano on 01-06-2025 Erythrocyte distribution width (RBC) [Ratio] 15.9 % High 11.6-14.6 [facility] Erythrocyte distribution wid th standard deviationOrdered By: Martín Romano on 01-06-2025 Erythrocyte distribution width (RBC) [Ratio] 56.9 fl High 35.1-43.9 [facility] Glomerular filtration rate ( GFR) estimation/1.73 sq m using serum, plasma, or whole bOrdered By: Martín Romano on 01-06-2025 GFR/1.73 sq M.predicted among non-blacks MDRD (S/P/Bld) [Vol rate/Area] 21 mL/min/{1.73_m2} Low >60 [facility] HIP, UNI W/ Pelvis 2-3 Views on 01-06-2025 HIP, UNI W/ Pelvis 2-3 Views [facility] Imaging Services [address] [place] [address] HIP, UNI W/ Pelvis 2-3 Views MR#: [id number] Acct: [id number] Name: MAURI QUINONES Rep #: [id number] : 1955 69 From: Trino miguel MD PCP: Dr. Rigoberto Gould MD Status: REG ER Study: HIP, UNI W/ Pelvis 2-3 Views Date of Exam: Exam# [id number] Ordering Dr: Martín Romano DO PROCEDURE: HIP, [...] dislocation. Moderate left hip osteoarthritis. Reading Location: [facility] CC: Dr. Martín Romano DO; Dr. Rigoberto Gould MD [employer] Personnel Specialist: Signed Normal [facility] Hematocrit Auto (Bld) [Volum e fraction]Ordered By: Martín Romano on 01-06-2025 Hematocrit (Bld) [Volume fraction] 38.4 % Low 40-54 [facility] Hemoglobin measurementOrdere d By: Martín Romano on 01-06-2025 Hemoglobin (Bld) [Mass/Vol] 12.7 g/dL Low 13.0-16.5 [facility] Immature granulocytes/100 WB C Auto (Bld)Ordered By: Martín Romano on 01-06-2025 Immature granulocytes/100 WBC (Bld) 1.000 % High 0.0-0.9 [facility] MCV (mean corpuscular volume ) determinationOrdered By: Martín Romano on 01-06-2025 MCV (RBC) [Entitic vol] 97.0 fL High 80-94 [facility] Mean corpuscular hemoglobin (MCH) determinationOrdered By: Martín Romano on 01-06-2025 MCH (RBC) [Entitic mass] 32.1 pg High 27.0-32.0 [facility] Monocyte percentageOrdered B y: Martín Romano on 01-06-2025 Monocytes/100 WBC (Bld) 8.8 % 0-10 [facility] Neutrophil percentageOrdered By: Martín Romano on 01-06-2025 Neutrophils/100 WBC (Bld) 81.1 % High 47-70 [facility] Partial Thromboplast Timeon 01-06-2025 aPTT Coag (Bld) [Time] 32.1 s Normal 24.1-36.2 [facility] Comment on above: Performed By: #### L 501.080 #### [facility] Laboratory [address] [place], [place], [address] Pelvis without IV Contraston 01-06-2025 Pelvis without IV Contrast [facility] Imaging Services [address] [place], [place] [address] Pelvis without IV Contrast MR#: [id number] Acct: [id number] Name: MAURI QUINONES Rep #: [id number] : 1955 M 69 From: Vincent Monteiro MD PCP: Dr. Rigoberto Gould MD Status: REG ER Study: Pelvis without IV Contrast Date of Exam: 01/06 Exam# [id number] Ordering Dr: Martín Romano DO PROCEDURE: PELVIS [...] Martín Romano DO; Dr. Rigoberto Gould MD [employer] Specialist: Signed Normal [facility] Platelet countOrdered By: Mic Romano on 01-06-2025 Platelets (Bld) [#/Vol] 137 10*3/uL Low 150-450 [facility] Potassium measurement (mass/ volume)Ordered By: Martín Romano on 01-06-2025 Potassium (Unsp spec) [Mass/Vol] 3.8 mmol/L 3.3-5.1 [facility] Prothrombin Time w/INRon INR Coag (PPP) [Relative time] 1.2 {INR} Normal [facility] Comment on above: Performed By: #### L 501.080 #### [facility] Laboratory [address] [place], [place], [id number] PT Coag (PPP) [Time] 15.5 s High 11.7-14.9 [facility] Comment on above: Performed By: #### L 501.080 #### [facility] Laboratory [address] [place], [place], [id number] Prothrombin timeOrdered By: Martín Romano on 01-06-2025 PT Coag (PPP) [Time] 15.5 s High 11.7-14.9 [facility] RBC Auto (Bld) [#/Vol]Ordere d By: Martín Basilia on 01-06-2025 RBC (Bld) [#/Vol] 3.96 10*6/uL Low 4.6-6.2 [facility] Serum creatinine measurement (mass/volume)Ordered By: Martín Romano on 01-06-2025 Creatinine [Mass/Vol] 3.12 mg/dL High 0.70-1.20 [facility] Serum glucose measurement (m ass/volume)Ordered By: Martín Romano on 01-06-2025 Glucose [Mass/Vol] 126 mg/dL High 70-99 [place] Serum or plasma calcium sneha urement (mass/volume)Ordered By: Martín Romano on 01-06-2025 Calcium [Mass/Vol] 9.7 mg/dL 7.6-11.0 [place] Serum or plasma urea nitroge n measurement (mass/volume)Ordered By: Martín Romano on 01-06-2025 Urea nitrogen [Mass/Vol] 32 mg/dL High 4-19 [facility] Sodium levelOrdered By: Martín Romano on 01-06-2025 Sodium [Moles/Vol] 134 mmol/L 133-145 [place] White blood cell (WBC) count Ordered By: Martín Romano on 01-06-2025 WBC (Bld) [#/Vol] 8.4 10*3/uL 4.4-11.0 [place] CNPNon [facility] -- MAURI QUINONES ([id number]) 1955 M Date Time Provider Department 01/05/25 [...] tablet by mouth every morning. - Insulin [place], Disposable, (BD ULTRA-FINE GOLDY PEN NEEDLE) 32 [...] [J90] 07/14/2018 12/02/2021 PVD (peripheral vascular disease) ([facility]) [I73.9] 07/16/2018 Altered mental status [R41.82] 03/24/2019 07/05/2019 UTI (urinary tract infection) [N39.0] 03/24/2019 12/02/2021 Chronic combined systolic and diastolic CHF (co*03/24/2019 Hyperkalemia [E87.5] 03/24/2019 12/02/2021 Hypoxia [R09.02] 03/24/2019 12/02/2021 Hypoalbuminemia [E88.09] 03/24/2019 12/02/2021 GARRET (acute kidney injury) ([facility]) [N17.9] 03/24/2019 12/02/2021 CKD (chronic kidney disease) [...] apnea) [G47.33] (more content not included)... Normal [facility] CNPSharron 01-02-2025 CNPN Telephone (FAMPWS) -- MAURI QUINONES ([id number]) 1955 M Date Time Provider Department 01/02/25 [...] increase the dose of trazodone. Pharmacy is [facility]. BISMARK Childress Jacqueline A, APRN.ANGIOGRAPHER 01/02/2025 12:06 PM Signed Lets increase the [...] tablet by mouth every morning. - Insulin [place], Disposable, (BD ULTRA-FINE GOLDY PEN NEEDLE) 32 [...] stage I (more content not included)... Normal [facility] CNOVon 12-30-2024 CNOV Office Visit (UROLMD ) -- MAURI QUINONES ([id number]) 1955 M Date Time Provider Department 12/30/24 [...] Value 04/24/2022 Negative 03/23/2019 NEGATIVE mg/dL Specific [place], Ur (no units) Date Value 04/24/2022 1.014 [...] 1 tablet by mouth every morning. Insulin [place], Disposable, (BD ULTRA-FINE GOLDY PEN NEEDLE) 32 [...] systolic and diastolic CHF (congestive heart failure) ([facility]) 03/24/2019 CKD (chronic kidney disease) stage 3, GFR 30-59 ml/min ([facility]) 03/24/2019 Constipation Diabetes ([facility]) Gout High phosphate levels 03/24/2019 History of [...] valve calcifi NSTEMI (non-ST elevated myocardial infarction) ([facility]) 03/12/2017 [facility] admit Osteoarthritis Transition of care performed with sharing o (more content not included)... Normal [facility] CNPNon [facility]-30-20[facility] MAURI QUINONES ([id number]) 1955 Date Time Provider Department 12/30/24 [facility] During your visit today, we [...] tablet by mouth every morning. - Insulin [place], Disposable, (BD ULTRA-FINE GOLDY PEN NEEDLE) 32 [...] open typ*05 (more content not included)... Normal [facility] Abdomen/Pelvis without Conto n 12-29-2024 Abdomen/Pelvis without Cont [facility] Imaging Services [address] [place] [address] Abdomen/Pelvis without Cont MR#: [id number] Acct: [id number] Name: MAURI QUINONES Rep #: [id number] : 1955 M 69 From: Trino miguel MD PCP: Dr. Rigoberto Gould MD Status: REG ER Study: Abdomen/Pelvis without Cont Date of Exam: 01/18 Exam# [id number] Ordering Dr: Ra Aaron DO PROCEDURE: ABDOMEN/PELVIS [...] Other findings as described above. Reading Location: [facility] CC: Dr. Ra Aaron DO; Dr. Rigoberto Gould MD [employer] Specialist: Signed Normal [facility] Absolute lymphocyte countOrd ered By: Ra Aaron on 12-29-2024 Lymphocytes Auto (Unsp spec) [#/Vol] 0.80 10*3/uL Low 0.83-4.51 [facility] Anion gap in Serum or Plasma Ordered By: Ra Aaron on 12-29-2024 Anion gap [Moles/Vol] 15 mmol/L 5-15 [facility] Automated lymphocyte count a s percentage of total leukocytesOrdered By: Ra Aaron on 12-29-2024 Lymphocytes/100 WBC Auto (Unsp spec) 15.3 % Low 19-41 [facility] BUN/creatinine ratioOrdered By: Ra Aaron on 12-29-2024 Urea nitrogen/Creatinine [Mass ratio] 14.5 mg/mg - [facility] Basic Metabolic Profile (BMP )on 12-29-2024 BUN/CRE 14.5 RATIO Normal - [facility] Comment on above: Performed By: #### L 501.080 #### [facility] Laboratory [address] [place], [address] Calcium [Mass/Vol] 10.2 mg/dL Normal 7.6-11.0 [place] Comment on above: Performed By: #### L 501.080 #### [facility] Laboratory [address] [place], [address] Chloride [Moles/Vol] 89 mmol/L Low 98-108 [facility] Comment on above: Performed By: #### L 501.080 #### [facility] Laboratory [address] [place], [address] CO2 [Moles/Vol] 26.0 mmol/L Normal 21.0-32.0 [facility] Comment on above: Performed By: #### L 501.080 #### [facility] Laboratory [address] [place], [address] Creatinine [Mass/Vol] 5.00 mg/dL High 0.70-1.20 [facility] Comment on above: Performed By: #### L 501.080 #### [facility] Laboratory [address] [place], [address] ECRCL 14.80 ml/min Low 50-250 [facility] Comment on above: Performed By: #### L 501.080 #### [facility] Laboratory [address] [place], [address] GAP 15 Normal 5-15 [facility] Comment on above: Performed By: #### L 501.080 #### [facility] Laboratory [address] [place], [address] GFR/1.73 sq M.predicted among non-blacks MDRD (S/P/Bld) [Vol rate/Area] 12 mL/min/{1.73_m2} Low >60 [facility] Comment on above: Result Comment: mL/m in/1.73m2 CKD-EPI Creatinine Equation (2020) Performed By: #### L 501.080 #### [facility] Laboratory [address] [place], [address] Glucose [Mass/Vol] 156 mg/dL High 70-99 [place] Comment on above: Performed By: #### L 501.080 #### [facility] Laboratory [address] [place], [address] Potassium [Moles/Vol] 3.9 mmol/L Normal 3.3-5.1 [facility] Comment on above: Performed By: #### L 501.080 #### [facility] Laboratory [address] [place], [address] Sodium [Moles/Vol] 130 mmol/L Low 133-145 [place] Comment on above: Performed By: #### L 501.080 #### [facility] Laboratory [address] [place], [address] Urea nitrogen [Mass/Vol] 73 mg/dL High 4-19 [facility] Comment on above: Performed By: #### L 501.080 #### [facility] Laboratory [address] [place], [address] Basophil percentageOrdered B y: Ra Aaron on 12-29-2024 Basophils/100 WBC (Bld) 1.0 % 0-1 [facility] CBC W/Diff, Automatedon Absolute Lymph 0.80 X10 3/uL Low 0.83-4.51 [facility] Comment on above: Performed By: #### L 501.080 #### [facility] Laboratory [address] [place], [address] Absolute Neut 3.7 X10 3/uL Normal 2.0-7.7 [facility] Comment on above: Performed By: #### L 501.080 #### [facility] Laboratory [address] [place], [address] Basophils/100 WBC (Bld) 1.0 % Normal 0-1 [facility] Comment on above: Performed By: #### L 501.080 #### [facility] Laboratory [address] [place], [address] Eosinophils/100 WBC (Bld) 2.5 % Normal 0-5 [facility] Comment on above: Performed By: #### L 501.080 #### [facility] Laboratory [address] [place], [address] Erythrocyte distribution width (RBC) [Ratio] 16.4 % High 11.6-14.6 [facility] Comment on above: Performed By: #### L 501.080 #### [facility] Laboratory [address] [place], [address] Hematocrit (Bld) [Volume fraction] 37.2 % Low 40-54 [facility] Comment on above: Performed By: #### L 501.080 #### [facility] Laboratory [address] [place], [address] Hemoglobin (Bld) [Mass/Vol] 12.4 g/dL Low 13.0-16.5 [facility] Comment on above: Performed By: #### L 501.080 #### [facility] Laboratory [address] [place], [address] IG% 0.200 Normal 0.0-0.9 [facility] Comment on above: Result Comment: IG% - Immature Granulocytes (promyelocytes, myelocytes and metamyelocytes) > 1% indicates that a LEFT SHIFT is Present. Performed By: #### L 501.080 #### [facility] Laboratory [address] [place], [address] Lymphocytes/100 WBC (Bld) 15.3 % Low 19-41 [facility] Comment on above: Performed By: #### L [id number] #### [facility] Laboratory [address] [place], [address] MCH (RBC) [Entitic mass] 32.1 pg High 27.0-32.0 [facility] Comment on above: Performed By: #### L 501.080 #### [facility] Laboratory [address] [place], [address] MCHC (RBC) [Mass/Vol] 33.3 g/dL Normal 32-36 [facility] Comment on above: Performed By: #### L 501.080 #### [facility] Laboratory [address] [place], [address] MCV (RBC) [Entitic vol] 96.4 fL High 80-94 [facility] Comment on above: Performed By: #### L 501.080 #### [facility] Laboratory [address] [place], [address] Monocytes/100 WBC (Bld) 10.5 % High 0-10 [facility] Comment on above: Performed By: #### L 501.080 #### [facility] Laboratory [address] [place], [address] Neutrophils/100 WBC (Bld) 70.5 % High 47-70 [facility] Comment on above: Performed By: #### L 501.080 #### [facility] Laboratory [address] [place], [address] Nucleated RBC (Bld) [#/Vol] 0 10*3/uL Normal 0-5 [facility] Comment on above: Performed By: #### L 501.080 #### [facility] Laboratory [address] [place], [address] Platelet mean volume (Bld) [Entitic vol] 10.0 fL Normal 6.2-12.0 [facility] Comment on above: Performed By: #### L 501.080 #### [facility] Laboratory [address] [place], [address] Platelets (Bld) [#/Vol] 120 10*3/uL Low 150-450 [facility] Comment on above: Performed By: #### L 501.080 #### [facility] Laboratory [address] [place], [address] RBC (Bld) [#/Vol] 3.86 10*6/uL Low 4.6-6.2 [facility] Comment on above: Performed By: #### L 501.080 #### [facility] Laboratory [address] [place], [address] RDW SD 57.9 fl High 35.1-43.9 [facility] Comment on above: Performed By: #### L 501.080 #### [facility] Laboratory [address] [place], [address] WBC (Bld) [#/Vol] 5.2 10*3/uL Normal 4.4-11.0 [place] Comment on above: Performed By: #### L 501.080 #### [facility] Laboratory [address] [place], [address] CNOVon 12-29-2024 CNOV Office Visit (FAMPWS ) -- MAURI QUINONES ([id number]) 1955 M Date Time Provider Department 12/29/24 2:40 PM RIGOBERTO GOULD During your visit today, we recorded the following information about you: Pulse Blood pressure Weight 72/minute 104/62 80.3 kg Rigoberto Gould MD 12/29/2024 3:18 PM Signed Patient presents with: ER F/U Hospital F/U HPI: Patient presents today for office visit for follow up. Was in [facility] ER on 12/22/24 had butler placed and 415 cc of urine drained. Has not seen urology yet because they didn't take his insurance. Was given rocephin in ER. Currently on cefdinir has 3 days left. States that has not urinated at all since left [facility] that day. He normally urinates daily. [...] 1 tablet by mouth every morning. Insulin [place], Disposable, (BD ULTRA-FINE GOLDY PEN NEEDLE) 32 [...] Acute on chronic diastolic congestive heart failure ([facility]) 07/14/2018 GARRET (acute kidney injury) 03/24/2019 GARRET (acute kidney injury) 03/24/2019 Ankylosing spondylitis ([facility]) CAD (coronary artery disease) Cellulitis Chronic combined systolic and diastolic CHF (congestive heart failure) ([facility]) 03/24/2019 CKD (chronic kidney disease) stage 3, GFR 30-59 ml/min ([facility]) 03/24/2019 Constipation Diabetes ([facility]) Gout High phosphate levels 03/24/2019 History of [...] valve calcifi NSTEMI (non-ST elevated myocardial infarction) ([facility]) 03/12/2017 [facility] admit Osteoarthritis Transition of care performed with sharing of clinical summary 04/08/2019 Admit [facility] 03/21/19-03/22/19 Discharge diagnoses chronic kidney disease with worsening creatinine, acute kidney injury Hypokalemia Toxic encephalopathy secondary to Flexeril overusage Type 2 diabetes Ischemic cardiomyopathy Coronary artery disease Ligamental cervical neck strain and acute Pulmonary hypertension Hypertension Pyuria Preadmit: to [facility] ED with slurred speech, lethargy. PAST SURGICAL HISTORY Procedure Laterality Date ARTHRP ACETBLR/PROX FEM PROSTC AGRFT/ALGRFT Right 2018 Dr Peguero CORONARY ARTERY BYPASS GRAFT 04/12/2017 x 3 FEMUR RIGHT OP SURGERY Right Repair of fracture with hard (more content not included)... Normal [facility] Carbon dioxide, total [Moles /volume] in Central venous bloodOrdered By: Ra Aaron on 12-29-2024 CO2 [Moles/Vol] 26.0 mmol/L 21.0-32.0 [facility] Chloride assayOrdered By: Toney Aaron on 12-29-2024 Chloride [Moles/Vol] 89 mmol/L Low 98-108 [facility] Emergency Department Summary on 12-29-2024 Emergency Department Summary [facility] Medical Records Department [address] [place] [address] Emergency Department Summary 12/29/24 MR#: [id number] Acct: [id number] Name: MAURI QUINONES Rep #: [id number] : 1955 69 From: Ra Aaron DO [...] bowel movements. He denies any flank pain. [facility] Medical History Persistent atrial fibrillation Paroxysmal atrial fibrillation C. difficile diarrhea Anemia History of GI bleed Pure hypercholesterolemia Ischemic cardiomyopathy Essential hypertension Renal insufficiency Ankylosing spondylitis CAD (coronary artery disease) Overweight (BMI 25.0-29.9) Leg edema Leg swelling Acute systolic heart failure Bradycardia Biliary pleural effusion HTN (hypertension) Ventricular tachyarrhythmia Atherosclerosis of [place] coronary artery of [place] heart without angina pectoris Pulmonary HTN Cardiomyopathy [...] pain, diarrhea, (more content not included)... Normal [facility] Eosinophil percentageOrdered By: Ra Aaron on 12-29-2024 Eosinophils/100 WBC (Bld) 2.5 % 0-5 [facility] Erythrocyte distribution wid th ratioOrdered By: Ra Aaron on 12-29-2024 Erythrocyte distribution width (RBC) [Ratio] 16.4 % High 11.6-14.6 [facility] Erythrocyte distribution wid th standard deviationOrdered By: Ra Aaron on 12-29-2024 Erythrocyte distribution width (RBC) [Ratio] 57.9 fl High 35.1-43.9 [facility] Glomerular filtration rate ( GFR) estimation/1.73 sq m using serum, plasma, or whole bOrdered By: Ra Aaron on 12-29-2024 GFR/1.73 sq M.predicted among non-blacks MDRD (S/P/Bld) [Vol rate/Area] 12 mL/min/{1.73_m2} Low >60 [facility] Hematocrit Auto (Bld) [Volum e fraction]Ordered By: Ra Aaron on 12-29-2024 Hematocrit (Bld) [Volume fraction] 37.2 % Low 40-54 [facility] Hemoglobin measurementOrdere d By: Ra Aaron on 12-29-2024 Hemoglobin (Bld) [Mass/Vol] 12.4 g/dL Low 13.0-16.5 [facility] Immature granulocytes/100 WB C Auto (Bld)Ordered By: Ra Aaron on 12-29-2024 Immature granulocytes/100 WBC (Bld) 0.200 % 0.0-0.9 [facility] MCV (mean corpuscular volume ) determinationOrdered By: Ra Aaron on 12-29-2024 MCV (RBC) [Entitic vol] 96.4 fL High 80-94 [facility] Mean corpuscular hemoglobin (MCH) determinationOrdered By: Ra Aaron on 12-29-2024 MCH (RBC) [Entitic mass] 32.1 pg High 27.0-32.0 [facility] Monocyte percentageOrdered B y: Ra Aaron on 12-29-2024 Monocytes/100 WBC (Bld) 10.5 % High 0-10 [facility] Neutrophil percentageOrdered By: Ra Aaron on 12-29-2024 Neutrophils/100 WBC (Bld) 70.5 % High 47-70 [facility] Platelet countOrdered By: Toney Aaron on 12-29-2024 Platelets (Bld) [#/Vol] 120 10*3/uL Low 150-450 [facility] Potassium measurement (mass/ volume)Ordered By: Ra Aaron on 12-29-2024 Potassium (Unsp spec) [Mass/Vol] 3.9 mmol/L 3.3-5.1 [facility] RBC Auto (Bld) [#/Vol]Ordere d By: Ra Aaron on 12-29-2024 RBC (Bld) [#/Vol] 3.86 10*6/uL Low 4.6-6.2 [facility] Serum creatinine measurement (mass/volume)Ordered By: Ra Aaron on 12-29-2024 Creatinine [Mass/Vol] 5.00 mg/dL High 0.70-1.20 [facility] Serum glucose measurement (m ass/volume)Ordered By: Ra Aaron on 12-29-2024 Glucose [Mass/Vol] 156 mg/dL High 70-99 [place] Serum or plasma calcium sneha urement (mass/volume)Ordered By: Ra Aaron on 12-29-2024 Calcium [Mass/Vol] 10.2 mg/dL 7.6-11.0 [place] Serum or plasma urea nitroge n measurement (mass/volume)Ordered By: Ra Aaron on 12-29-2024 Urea nitrogen [Mass/Vol] 73 mg/dL High 4-19 [facility] Sodium levelOrdered By: Aniket Aaron on 12-29-2024 Sodium [Moles/Vol] 130 mmol/L Low 133-145 [place] Urinalysis, Completeon 12-29 BACTERIA Normal None Seen [facility] Comment on above: Order Comment: ERAN HUANG TO SPECIFY Result Comment: NO U RINE COLLECTED. PATIENT DEPARTED ED. Performed By: #### L [id number] #### [facility] Laboratory [address] [place], [place], [id number] BILIRUBIN URINE Normal Negative [facility] Comment on above: Order Comment: COLLE CTOR TO SPECIFY Result Comment: NO U RINE COLLECTED. PATIENT DEPARTED ED. Performed By: #### L [id number] #### [facility] Laboratory [address] [place], [address] Clarity (U) Normal Clear [facility] Comment on above: Order Comment: COLLE CTOR TO SPECIFY Result Comment: NO U RINE COLLECTED. PATIENT DEPARTED ED. Performed By: #### L [id number] #### [facility] Laboratory [address] [place], [address] Color (U) Normal Yellow [facility] Comment on above: Order Comment: COLLE CTOR TO SPECIFY Result Comment: NO U RINE COLLECTED. PATIENT DEPARTED ED. Performed By: #### L 400.0001 #### [facility] [address] [place], [address] EPI,SQUAMOUS Normal 0-5 [facility] Comment on above: Order Comment: COLLE CTOR TO SPECIFY Result Comment: NO U RINE COLLECTED. PATIENT DEPARTED ED. Performed By: #### L 400.0001 #### [facility] [address] [place], [address] GLUCOSE, UR Normal Normal [facility] Comment on above: Order Comment: [facility] CTOR TO SPECIFY Result Comment: NO U RINE COLLECTED. PATIENT DEPARTED ED. Performed By: #### L 400.0001 #### [facility] [address] [place], [address] KETONE UR Normal Negative [facility] Comment on above: Order Comment: [facility] CTOR TO SPECIFY Result Comment: NO U RINE COLLECTED. PATIENT DEPARTED ED. Performed By: #### L 400.0001 #### [facility] [address] [place], [address] LEUK ESTERASE Normal Negative [facility] Comment on above: Order Comment: COLLE CTOR TO SPECIFY Result Comment: NO U RINE COLLECTED. PATIENT DEPARTED ED. Performed By: #### L 400.0001 #### [facility] [address] [place], [address] Mucus Ql (Urine sed) Normal [facility] Comment on above: Order Comment: COLLE CTOR TO SPECIFY Result Comment: NO U RINE COLLECTED. PATIENT DEPARTED ED. Performed By: #### L 400.0001 #### [facility] [address] [place], [address] Nitrite Ql (U) Normal Negative [facility] Comment on above: Order Comment: COLLE CTOR TO SPECIFY Result Comment: NO U RINE COLLECTED. PATIENT DEPARTED ED. Performed By: #### L 400.0001 #### [facility] [address] [place], [address] OCCULT BLOOD-UR Normal Negative [facility] Comment on above: Order Comment: COLLE CTOR TO SPECIFY Result Comment: NO U RINE COLLECTED. PATIENT DEPARTED ED. Performed By: #### L 400.0001 #### [facility] [address] [place], [address] pH UR Normal 5.0 - 8.0 [facility] Comment on above: Order Comment: COLLE CTOR TO SPECIFY Result Comment: NO U RINE COLLECTED. PATIENT DEPARTED ED. Performed By: #### L 400.0001 #### [facility] [address] [place], [address] PROT DIPSTX Normal Negative [facility] Comment on above: Order Comment: COLLE CTOR TO SPECIFY Result Comment: NO U RINE COLLECTED. PATIENT DEPARTED ED. Performed By: #### L 400.0001 #### [facility] [address] [place], [address] RBC Normal 0-5 [facility] Comment on above: Order Comment: [facility] CTOR TO SPECIFY Result Comment: NO U RINE COLLECTED. PATIENT DEPARTED ED. Performed By: #### L 400.0001 #### [facility] [address] [place], [address] SP.GR. DIPSTX Normal 1.002-1.030 [facility] Comment on above: Order Comment: COLLE CTOR TO SPECIFY Result Comment: NO U RINE COLLECTED. PATIENT DEPARTED ED. Performed By: #### L 400.0001 #### [facility] [address] [place], [address] UR Preservative Normal [facility] Comment on above: Order Comment: COLLE CTOR TO SPECIFY Result Comment: NO U RINE COLLECTED. PATIENT DEPARTED ED. Performed By: #### L 400.0001 #### [facility] [address] [place], [address] UROBILI Normal Normal [facility] Comment on above: Order Comment: COLLE CTOR TO SPECIFY Result Comment: NO U RINE COLLECTED. PATIENT DEPARTED ED. Performed By: #### L 400.0001 #### [facility] [address] [facility] [address] WBC Normal 0-5 [facility] Comment on above: Order Comment: COLLE CTOR TO SPECIFY Result Comment: NO U RINE COLLECTED. PATIENT DEPARTED ED. Performed By: #### L 400.0001 #### [facility] [address] [place], [address] White blood cell (WBC) count Ordered By: Ra Aaron on 12-29-2024 WBC (Bld) [#/Vol] 5.2 10*3/uL 4.4-11.0 [place] Urine Cultureon 12-25-2024 [facility] Butler cath urine is not recommended. Growth may represent distal urethral douglas. Coag Negative [place] [place] Count <1000 Normal [facility] Comment on above: Performed By: #### M 100.2200 ####[facility] [address] [place], [address] Urine Cultureon 12-23-2024 [facility] Culture exhibits no growth. Normal [facility] Comment on above: Performed By: #### M 100.2200 ####[facility] [address] [place], [place], [id number] Absolute lymphocyte countOrd ered By: Shira Wood on 12-22-2024 Lymphocytes Auto (Unsp spec) [#/Vol] 0.83 10*3/uL 0.83-4.51 [facility] Anion gap in Serum or Plasma Ordered By: Shira Wood on 12-22-2024 Anion gap [Moles/Vol] 17 mmol/L High 5-15 [facility] Automated blood erythrocyte countOrdered By: Shira Wood on 12-22-2024 RBC (Bld) [#/Vol] 3.93 10*6/uL Low 4.6-6.2 [facility] Comment on above: Performed By: #### L 501.080 #### [facility] [address] [place], [place], [id number] Automated blood hematocrit ( percentage)Ordered By: Shira Wood on 12-22-2024 Hematocrit (Bld) [Volume fraction] 38.3 % Low 40-54 [facility] Comment on above: Performed By: #### L 501.080 #### [facility] [address] [place], [place], [address] Automated lymphocyte count a s percentage of total leukocytesOrdered By: Shira Wood on 12-22-2024 Lymphocytes/100 WBC Auto (Unsp spec) 13.9 % Low 19-41 [facility] BUN/creatinine ratioOrdered By: Shira Wood on 12-22-2024 Urea nitrogen/Creatinine [Mass ratio] 12.2 mg/mg 10- [facility] Basic Metabolic Profile (BMP )on 12-22-2024 BUN/CRE 12.2 RATIO Normal - [facility] Comment on above: Performed By: #### L 501.080 #### [facility] [address] [place], [address] GAP 17 High - [facility] Comment on above: Performed By: #### L 501.080 #### [facility] [address] [place], [address] Potassium [Moles/Vol] 4.1 mmol/L Normal 3.3-5.1 [facility] Comment on above: Performed By: #### L 501.080 #### [facility] [address] [place], [address] Basophil percentageOrdered B y: Shira Wood on 12-22-2024 Basophils/100 WBC (Bld) 0.3 % Normal 0-1 [facility] Comment on above: Performed By: #### L 501.080 #### [facility] [address] [place], [address] Bilirubin Test strip Ql (U)O rdered By: Shira Wood on 12-22-2024 Bilirubin Ql (U) 1 mg/dL High Negative [facility] CBC W/Diff, Automatedon 11-26 Absolute Lymph 0.83 X10 3/uL Normal 0.83-4.51 [facility] Comment on above: Performed By: #### L 501.080 #### [facility] [address] [place], [address] Absolute Neut 4.2 X10 3/uL Normal 2.0-7.7 [facility] Comment on above: Performed By: #### L 501.080 #### [facility] [address] [place], [address] IG% 0.300 Normal 0.0-0.9 [facility] Comment on above: Result Comment: IG% - Immature Granulocytes (promyelocytes, myelocytes and metamyelocytes) > 1% indicates that a LEFT SHIFT is Present. Performed By: #### L 501.080 #### [facility] [address] [place], [address] Lymphocytes/100 WBC (Bld) 13.9 % Low 19-41 [facility] Comment on above: Performed By: #### L 501.080 #### [facility] [address] [place], [address] MCHC (RBC) [Mass/Vol] 32.4 g/dL Normal 32-36 [facility] Comment on above: Performed By: #### L 501.080 #### [facility] [address] [place], [address] Nucleated RBC (Bld) [#/Vol] 0 10*3/uL Normal 0-5 [facility] Comment on above: Performed By: #### L 501.080 #### [facility] [address] [place], [address] Platelet mean volume (Bld) [Entitic vol] 9.9 fL Normal 6.2-12.0 [facility] Comment on above: Performed By: #### L 501.080 #### [facility] [address] [place], [address] RDW SD 59.9 fl High 35.1-43.9 [facility] Comment on above: Performed By: #### L 501.080 #### [facility] [address] [place], [address] Carbon dioxide, total [Moles /volume] in Central venous bloodOrdered By: Shira Wood on 12-22-2024 CO2 [Moles/Vol] 26.0 mmol/L Normal 21.0-32.0 [facility] Comment on above: Performed By: #### L 501.080 #### [facility] [address] [place], [address] Chloride assayOrdered By: Nancy Wood on 12-22-2024 Chloride [Moles/Vol] 90 mmol/L Low 98-108 [facility] Comment on above: Performed By: #### L 501.080 #### [facility] [address] [place], [address] Emergency Department Summary on 12-22-2024 Emergency Department Summary [facility] Medical Records Department [address] [place] [address] Emergency Department Summary 12/22/24 MR#: [id number] Acct: [id number] Name: MAURI QUINONES Rep #: [id number] : 1955 69 From: Shira GAGNON PCP: Dr. Rigoberto Gould MD Status:DEP ER Location: ED Patient was seen and examined with physician family assistant Aleshia All components of the history and [...] 415 cc of urine in his bladder Butler catheter was placed. Patient CBC was reviewed [...] abdominal pain, nausea, flank pain, and vomiting. [facility] Medical History Paroxysmal atrial fibrillation C. difficile diarrhea Anemia History of GI bleed Pure hypercholesterolemia Ischemic cardiomyopathy Essential hypertension Renal insufficiency Ankylosing spondylitis CAD (coronary artery disease) Overweight (BMI 25.0-29.9) Leg edema Leg swelling Acute systolic heart failure Bradycardia Biliary pleural effusion HTN (hypertension) Ventricular tachyarrhythmia Atherosclerosis of [place] coronary artery of [place] heart without angina pectoris Pulmonary HTN Cardiomyopathy Valvular heart disease NSTEMI (non-ST elevated myocardial infarction) CHF (congestive heart failure) Abscess of right foot Diabetes mellitus with neuropathy Gout DM2 (diabetes mellitus, type 2) Home (more content not included)... Normal [facility] Eosinophil percentageOrdered By: Shira Wood on 12-22-2024 Eosinophils/100 WBC (Bld) 2.2 % Normal 0-5 [facility] Comment on above: Performed By: #### L 501.080 #### [facility] [address] [place], [address] Erythrocyte distribution wid th ratioOrdered By: Shira Wood on 12-22-2024 Erythrocyte distribution width (RBC) [Ratio] 16.8 % High 11.6-14.6 [facility] Comment on above: Performed By: #### L 501.080 #### [facility] [address] [place], [address] Erythrocyte distribution wid th standard deviationOrdered By: Shira Wood on 12-22-2024 Erythrocyte distribution width (RBC) [Ratio] 59.9 fl High 35.1-43.9 [facility] Glomerular filtration rate ( GFR) estimation/1.73 sq m using serum, plasma, or whole bOrdered By: Shira Wood on 12-22-2024 GFR/1.73 sq M.predicted among non-blacks MDRD (S/P/Bld) [Vol rate/Area] 11 mL/min/{1.73_m2} Low >60 [facility] Comment on above: Result Comment: mL/m in/1.73m2 CKD-EPI Creatinine Equation (2020) Performed By: #### L 501.080 #### [facility] [address] [place], [address] Hemoglobin measurementOrdere d By: Shira Wood on 12-22-2024 Hemoglobin (Bld) [Mass/Vol] 12.4 g/dL Low 13.0-16.5 [facility] Comment on above: Performed By: #### L 501.080 #### [facility] [address] [place], [address] Immature granulocytes/100 WB C Auto (Bld)Ordered By: Shira Wood on 12-22-2024 Immature granulocytes/100 WBC (Bld) 0.300 % 0.0-0.9 [facility] Ketones Test strip Ql (U)Ord ered By: Shira Wood on 12-22-2024 Ketones Ql (U) 5 mg/dl High Negative [facility] MCV (mean corpuscular volume ) determinationOrdered By: Shira Wood on 12-22-2024 MCV (RBC) [Entitic vol] 97.5 fL High 80-94 [facility] Comment on above: Performed By: #### L 501.080 #### [facility] [address] [place], [address] Mean corpuscular hemoglobin (MCH) determinationOrdered By: Shira Wood on 12-22-2024 MCH (RBC) [Entitic mass] 31.6 pg Normal 27.0-32.0 [facility] Comment on above: Performed By: #### L 501.080 #### [facility] [address] [place], [address] Monocyte percentageOrdered B y: Shira Wood on 12-22-2024 Monocytes/100 WBC (Bld) 13.9 % High 0-10 [facility] Comment on above: Performed By: #### L 501.080 #### [facility] [address] [place], [address] Mucus LM Ql (Urine sed)Order ed By: Shira Wood on 12-22-2024 Mucus Ql (Urine sed) RARE /hpf [facility] Neutrophil percentageOrdered By: Shira Wood on 12-22-2024 Neutrophils/100 WBC (Bld) 69.4 % Normal 47-70 [facility] Comment on above: Performed By: #### L 501.080 #### [facility] [address] [place], [address] Nitrite Test strip Ql (U)Ord ered By: Shira Wood on 12-22-2024 Nitrite Ql (U) Positive High Negative [facility] Platelet countOrdered By: Nancy mckennattmyriam Wood on 12-22-2024 Platelets (Bld) [#/Vol] 100 10*3/uL Low 150-450 [facility] Comment on above: Performed By: #### L 501.080 #### [facility] [address] [place], [address] Potassium measurement (mass/ volume)Ordered By: Shira Wood on 12-22-2024 Potassium (Unsp spec) [Mass/Vol] 4.1 mmol/L 3.3-5.1 [facility] Protein Test strip Ql (U)Ord ered By: Shira Wood on 12-22-2024 Protein Ql (U) 100 mg/dl High Negative [facility] Serum creatinine measurement (mass/volume)Ordered By: Shira Wood on 12-22-2024 Creatinine [Mass/Vol] 5.57 mg/dL High 0.70-1.20 [facility] Comment on above: Performed By: #### L 501.080 #### [facility] [address] [place], [address] Serum glucose measurement (m ass/volume)Ordered By: Shira Wood on 12-22-2024 Glucose [Mass/Vol] 152 mg/dL High 70-99 [place] Comment on above: Performed By: #### L 501.080 #### [facility] [address] [place], [address] Serum or plasma calcium sneha urement (mass/volume)Ordered By: Shira Wood on 12-22-2024 Calcium [Mass/Vol] 10.1 mg/dL Normal 7.6-11.0 [place] Comment on above: Performed By: #### L 501.080 #### [facility] [address] [place], [address] Serum or plasma urea nitroge n measurement (mass/volume)Ordered By: Shira Wood on 12-22-2024 Urea nitrogen [Mass/Vol] 68 mg/dL High 4-19 [facility] Comment on above: Performed By: #### L 501.080 #### [facility] [address] [place], [address] Sodium levelOrdered By: Jadon Wood on 12-22-2024 Sodium [Moles/Vol] 133 mmol/L Normal 133-145 [place] Comment on above: Performed By: #### L 501.080 #### [facility] [address] [facility] [address] Squamous epithelial cells de tection in urine sediment by light microscopyOrdered By: Shira Wood on 12-22-2024 Epithelial cells.squamous LM Ql (Urine sed) 0-5 SEEN /hpf 0-5 [facility] Urinalysis, Completeon 12-22 Mucus Ql (Urine sed) RARE Normal [facility] Comment on above: Order Comment: COLOR OF URINE MAY AFFECT DIPSTICK RESULTS.TEST ENGINE OPERATOR TO SPECIFY Performed By: #### L 501.080 #### [facility] [address] [place], [address] BACTERIA 3+ /hpf Normal None Seen [facility] Comment on above: Order Comment: COLOR OF URINE MAY AFFECT DIPSTICK RESULTS.TEST ENGINE OPERATOR TO SPECIFY Performed By: #### L 501.080 #### [facility] [address] [place], [address] EPI,SQUAMOUS 0-5 SEEN Normal 0-5 [facility] Comment on above: Order Comment: COLOR OF URINE MAY AFFECT DIPSTICK RESULTS.TEST ENGINE OPERATOR TO SPECIFY Performed By: #### L 501.080 #### [facility] [address] [place], [address] RBC > 100 SEEN Normal 0-5 [facility] Comment on above: Order Comment: COLOR OF URINE MAY AFFECT DIPSTICK RESULTS.TEST ENGINE OPERATOR TO SPECIFY Performed By: #### L 501.080 #### [facility] [address] [place], [place], [address] WBC 10-25 SEEN Normal 0-5 [facility] Comment on above: Order Comment: COLOR OF URINE MAY AFFECT DIPSTICK RESULTS.TEST ENGINE OPERATOR TO SPECIFY Performed By: #### L 501.080 #### [facility] [address] [place], [place], [address] Urine clarityOrdered By: Luca Wood on 12-22-2024 Clarity (U) Cloudy Clear [facility] Urine color determinationOrd ered By: Shira Wood on 12-22-2024 Color (U) Brown Yellow [facility] Urine cultureOrdered By: Luca Wood on 12-22-2024 Bacteria identified Cx Nom (U) Negative Abnormal [facility] Urine cultureOrdered By: Siomara Nelson on 12-22-2024 Bacteria identified Cx Nom (U) Culture exhibits no growth. [facility] Urine glucose detectionOrder ed By: Shira Wood on 12-22-2024 Glucose Ql (U) Normal mg/dl Normal [facility] Urine leukocyte esterase det ection by dipstickOrdered By: Shira Wood on 12-22-2024 Leukocyte esterase Test strip Ql (U) 100 /ul High Negative [facility] Urine pHOrdered By: Ibrahima Wood on 12-22-2024 pH (U) 5.0 [pH] 5.0 - 8.0 [facility] Urine sediment bacteria coun t by microscopy (number/high power field)Ordered By: Shira Wood on 12-22-2024 Bacteria LM.HPF (Urine sed) [#/Area] 3 /[HPF] None Seen [facility] Urine specific gravity measu rementOrdered By: Shira Wood on 12-22-2024 Specific gravity (U) [Rel density] 1.020 1.002-1.030 [facility] Urine urobilinogen measureme ntOrdered By: Shira Wood on 12-22-2024 Urobilinogen Ql (U) Normal mg/dl Normal [facility] White blood cell (WBC) count Ordered By: Shira Wood on 12-22-2024 WBC (Bld) [#/Vol] 6.0 10*3/uL Normal 4.4-11.0 [place] Comment on above: Performed By: #### L 501.080 #### [facility] [address] [place], [address] White blood cell countOrdere d By: Shira Wood on 12-22-2024 White blood cell count 10-25 SEEN /hpf 0-5 [facility] CNOVon 12-17-2024 CNOV Office Visit ([facility]NA ) -- QUINONESMAURI Miguel ([id number]) 1955 M [facility] Date Time Provider Department 12/17/24 2:30 PM [...] PAST MEDICAL HISTORY Diagnosis Date Ankylosing spondylitis ([facility]) CAD (coronary artery disease) Cellulitis Chronic combined systolic and diastolic CHF (congestive heart failure) ([facility]) 03/24/2019 CKD (chronic kidney disease) stage 3, GFR 30-59 ml/min ([facility]) 03/24/2019 Constipation Diabetes ([facility]) ESRD (end stage renal disease) ([facility]) Gout History of coronary artery bypass graft [...] valve calcifi NSTEMI (non-ST elevated myocardial infarction) ([facility]) 03/12/2017 [facility] admit Osteoarthritis PAST SURGICAL HISTORY Procedure [...] Surgery Cle (more content not included)... Normal [facility] Basic Metabolic Profile (BMP )on 12-14-2024 BUN Normal - [facility] Comment on above: Result Comment: Canc elled via OM: Order cancelled - Patient discharged Performed By: #### L 501.080 #### [facility] [address] [place], [address] BUN/CRE Normal - [facility] Comment on above: Result Comment: Canc elled via OM: Order cancelled - Patient discharged Performed By: #### L 501.080 #### [facility] [address] [place], [address] Calcium Normal 7.6-11.0 [facility] Comment on above: Result Comment: Canc elled via OM: Order cancelled - Patient discharged Performed By: #### L 501.080 #### [facility] [address] [place], [address] CL Normal 98-108 [facility] Comment on above: Result Comment: Canc elled via OM: Order cancelled - Patient discharged Performed By: #### L 501.080 #### [facility] [address] [place], [address] CO2 Normal 21.0-32.0 [facility] Comment on above: Result Comment: Canc elled via OM: Order cancelled - Patient discharged Performed By: #### L 501.080 #### [facility] [address] [place], [place], [address] CREAT,SERUM Normal 0.70-1.20 [facility] Comment on above: Result Comment: Canc elled via OM: Order cancelled - Patient discharged Performed By: #### L 501.080 #### [facility] [address] [place], [address] eGFR Normal >60 [facility] Comment on above: Result Comment: Canc elled via OM: Order cancelled - Patient discharged Performed By: #### L 501.080 #### [facility] [address] [place], [address] GAP Normal 5-15 [facility] Comment on above: Result Comment: Canc elled via OM: Order cancelled - Patient discharged Performed By: #### L 501.080 #### [facility] [address] [place], [address] GLU Normal 70-99 [facility] Comment on above: Result Comment: Canc elled via OM: Order cancelled - Patient discharged Performed By: #### L 501.080 #### [facility] [address] [place], [address] Potassium Normal 3.3-5.1 [facility] Comment on above: Result Comment: Canc elled via OM: Order cancelled - Patient discharged Performed By: #### L 501.080 #### [facility] [address] [place], [address] Basic Metabolic Profile (BMP) Normal 133-145 [facility] Comment on above: Result Comment: Canc elled via OM: Order cancelled - Patient discharged Performed By: #### L 501.080 #### [facility] [address] [place], [address] CBC W/Diff, Automatedon 04-2 0-2024 Absolute Neut Normal 2.0-7.7 [facility] Comment on above: Result Comment: Canc elled via OM: Order cancelled - Patient discharged Performed By: #### L 501.080 #### [facility] [address] [place], [address] HCT Normal 40-54 [facility] Comment on above: Result Comment: Canc elled via OM: Order cancelled - Patient discharged Performed By: #### L 501.080 #### [facility] [address] [place], [address] HGB Normal 13.0-16.5 [facility] Comment on above: Result Comment: Canc elled via OM: Order cancelled - Patient discharged Performed By: #### L 501.080 #### [facility] [address] [place], [address] MCH Normal 27.0-32.0 [facility] Comment on above: Result Comment: Canc elled via OM: Order cancelled - Patient discharged Performed By: #### L 501.080 #### [facility] [address] [place], [address] MCHC Normal 32-36 [facility] Comment on above: Result Comment: Canc elled via OM: Order cancelled - Patient discharged Performed By: #### L 501.080 #### [facility] [address] [place], [address] MCV Normal 80-94 [facility] Comment on above: Result Comment: Canc elled via OM: Order cancelled - Patient discharged Performed By: #### L 501.080 #### [facility] [address] [place], [address] NEUT% Normal 47-70 [facility] Comment on above: Result Comment: Canc elled via OM: Order cancelled - Patient discharged Performed By: #### L 501.080 #### [facility] [address] [place], [address] PLT Normal 150-450 [facility] Comment on above: Result Comment: Canc elled via OM: Order cancelled - Patient discharged Performed By: #### L 501.080 #### [facility] [address] [place], [address] RBC Normal 4.6-6.2 [facility] Comment on above: Result Comment: Canc elled via OM: Order cancelled - Patient discharged Performed By: #### L 501.080 #### [facility] [address] [place], [address] RDW CV Normal 11.6-14.6 [facility] Comment on above: Result Comment: Canc elled via OM: Order cancelled - Patient discharged Performed By: #### L 501.080 #### [facility] [address] [place], [address] RDW SD Normal 35.1-43.9 [facility] Comment on above: Result Comment: Canc elled via OM: Order cancelled - Patient discharged Performed By: #### L 501.080 #### [facility] [address] [place], [address] WBC Normal 4.4-11.0 [facility] Comment on above: Result Comment: Canc elled via OM: Order cancelled - Patient discharged Performed By: #### L 501.080 #### [facility] [address] [place], [address] Absolute lymphocyte countOrd ered By: Sukumar Restrepo on 12-13-2024 Lymphocytes Auto (Unsp spec) [#/Vol] 0.80 10*3/uL Low 0.83-4.51 [facility] Absolute neutrophil countOrd ered By: Sukumar Restrepo on 12-13-2024 Neutrophils (Bld) [#/Vol] 5.4 10*3/uL 2.0-7.7 [facility] Anion gap in Serum or Plasma Ordered By: Sukumar Restrepo on 12-13-2024 Anion gap [Moles/Vol] 19 mmol/L High 5-15 [facility] Automated lymphocyte count a s percentage of total leukocytesOrdered By: Sukumar Restrepo on 12-13-2024 Lymphocytes/100 WBC Auto (Unsp spec) 10.5 % Low 19-41 [facility] BUN/creatinine ratioOrdered By: Sukumar Restrepo on 12-13-2024 Urea nitrogen/Creatinine [Mass ratio] 13.2 mg/mg 10- [facility] Basic Metabolic Profile (BMP )on 12-13-2024 BUN/CRE 13.2 RATIO Normal - [facility] Comment on above: Performed By: #### L 509.7001 #### [facility] [address] [place], [address] Calcium [Mass/Vol] 9.4 mg/dL Normal 7.6-11.0 [place] Comment on above: Performed By: #### L 509.7001 #### [facility] [address] [place], [address] Chloride [Moles/Vol] 93 mmol/L Low 98-108 [facility] Comment on above: Performed By: #### L 509.7001 #### [facility] [address] [place], [address] CO2 [Moles/Vol] 21.9 mmol/L Normal 21.0-32.0 [facility] Comment on above: Performed By: #### L 509.7001 #### [facility] [address] [place], [address] Creatinine [Mass/Vol] 6.56 mg/dL High 0.70-1.20 [facility] Comment on above: Performed By: #### L 509.7001 #### [facility] [address] [place], [address] ECRCL 11.28 ml/min Low 50-250 [facility] Comment on above: Performed By: #### L 509.7001 #### [facility] [address] [place], [address] GAP 19 High 5-15 [facility] Comment on above: Performed By: #### L 509.1 #### [facility] [address] [place], [address] GFR/1.73 sq M.predicted among non-blacks MDRD (S/P/Bld) [Vol rate/Area] 9 mL/min/{1.73_m2} Low >60 [facility] Comment on above: Result Comment: mL/m in/1.73m2 CKD-EPI Creatinine Equation (2020) Performed By: #### L 509.700 #### [facility] [address] [place], [address] Glucose [Mass/Vol] 59 mg/dL Low 70-99 [place] Comment on above: Performed By: #### L 509.7001 #### [facility] [address] [place], [address] Potassium [Moles/Vol] 4.4 mmol/L Normal 3.3-5.1 [facility] Comment on above: Performed By: #### L 509.7001 #### [facility] [address] [place], [address] Sodium [Moles/Vol] 134 mmol/L Normal 133-145 [place] Comment on above: Performed By: #### L 509.7001 #### [facility] [address] [place], [address] Urea nitrogen [Mass/Vol] 87 mg/dL High 4-19 [facility] Comment on above: Performed By: #### L 509.7001 #### [facility] [address] [place], [address] Basophil percentageOrdered B y: Sukumar Lauro on 12-13-2024 Basophils/100 WBC (Bld) 0.5 % 0-1 [facility] Bedside Glucoseon 12-13-2024 FINGERSTICK GLU 77 mg/dL Normal 74-106 [facility] Comment on above: Result Comment: BONI GEMENT OF PATIENT CARE PER NURSING PROTOCOL Performed By: #### L 501.080 #### [facility] [address] [place], [address] FINGERSTICK GLU 50 mg/dL Low 74-106 [facility] Comment on above: Result Comment: BONI GEMENT OF PATIENT CARE PER NURSING PROTOCOL Performed By: #### L 501.080 #### [facility] [address] [place], [address] FINGERSTICK GLU 173 mg/dL High 74-106 [facility] Comment on above: Result Comment: BONI GEMENT OF PATIENT CARE PER NURSING PROTOCOL Performed By: #### L 501.080 #### [facility] [address] [place], [address] FINGERSTICK GLU 83 mg/dL Normal 74-106 [facility] Comment on above: Result Comment: BONI GEMENT OF PATIENT CARE PER NURSING PROTOCOL Performed By: #### L 501.080 #### [facility] [address], [address] CBC W/Diff, Automatedon 11-25 Absolute Lymph 0.80 X10 3/uL Low 0.83-4.51 [facility] Comment on above: Performed By: #### L 501.080 #### [facility] [address] [place], [address] Absolute Neut 5.4 X10 3/uL Normal 2.0-7.7 [facility] Comment on above: Performed By: #### L 501.080 #### [facility] [address] [place], [address] Basophils/100 WBC (Bld) 0.5 % Normal 0-1 [facility] Comment on above: Performed By: #### L 501.080 #### [facility] [address] [place], [address] Eosinophils/100 WBC (Bld) 2.1 % Normal 0-5 [facility] Comment on above: Performed By: #### L 501.080 #### [facility] [address] [place], [address] Erythrocyte distribution width (RBC) [Ratio] 17.4 % High 11.6-14.6 [facility] Comment on above: Performed By: #### L 501.080 #### [facility] [address] [place], [address] Hematocrit (Bld) [Volume fraction] 36.6 % Low 40-54 [facility] Comment on above: Performed By: #### L 501.080 #### [facility] [address] [place], [address] Hemoglobin (Bld) [Mass/Vol] 12.1 g/dL Low 13.0-16.5 [facility] Comment on above: Performed By: #### L 501.080 #### [facility] [address] [place], [address] IG% 0.300 Normal 0.0-0.9 [facility] Comment on above: Result Comment: IG% - Immature Granulocytes (promyelocytes, myelocytes and metamyelocytes) > 1% indicates that a LEFT SHIFT is Present. Performed By: #### L 501.080 #### [facility] [address] [place], [address] Lymphocytes/100 WBC (Bld) 10.5 % Low 19-41 [facility] Comment on above: Performed By: #### L 501.080 #### [facility] [address] [place], [address] MCH (RBC) [Entitic mass] 31.4 pg Normal 27.0-32.0 [facility] Comment on above: Performed By: #### L 501.080 #### [facility] [address] [place], [address] MCHC (RBC) [Mass/Vol] 33.1 g/dL Normal 32-36 [facility] Comment on above: Performed By: #### L 501.080 #### [facility] [address] [place], [address] MCV (RBC) [Entitic vol] 95.1 fL High 80-94 [facility] Comment on above: Performed By: #### L 501.080 #### [facility] [address] [place], [address] Monocytes/100 WBC (Bld) 15.1 % High 0-10 [facility] Comment on above: Performed By: #### L 501.080 #### [facility] [address] [place], [address] Neutrophils/100 WBC (Bld) 71.5 % High 47-70 [facility] Comment on above: Performed By: #### L 501.080 #### [facility] [address] [place], [address] Nucleated RBC (Bld) [#/Vol] 0 10*3/uL Normal 0-5 [facility] Comment on above: Performed By: #### L 501.080 #### [facility] [address] [place], [address] Platelet mean volume (Bld) [Entitic vol] 9.7 fL Normal 6.2-12.0 [facility] Comment on above: Performed By: #### L 501.080 #### [facility] [address] [place], [address] Platelets (Bld) [#/Vol] 146 10*3/uL Low 150-450 [facility] Comment on above: Performed By: #### L 501.080 #### [facility] [address] [place], [address] RBC (Bld) [#/Vol] 3.85 10*6/uL Low 4.6-6.2 [facility] Comment on above: Performed By: #### L 501.080 #### [facility] [address] [place], [address] RDW SD 58.9 fl High 35.1-43.9 [facility] Comment on above: Performed By: #### L 501.080 #### [facility] [address] [place], [address] WBC (Bld) [#/Vol] 7.6 10*3/uL Normal 4.4-11.0 [place] Comment on above: Performed By: #### L 501.080 #### [facility] [address] [place], [address] Carbon dioxide, total [Moles /volume] in Central venous bloodOrdered By: Sukumar Restrepo on 12-13-2024 CO2 [Moles/Vol] 21.9 mmol/L 21.0-32.0 [facility] Chloride assayOrdered By: Dulce Restrepo on 12-13-2024 Chloride [Moles/Vol] 93 mmol/L Low 98-108 [facility] Discharge Instructionon 11-25 Discharge Instruction [facility] Medical Records Department [address] [place] [address] Instructions for Home/Discharge Instructions 12/13/24 0935 MR#: [id number] Acct: [id number] Name: MAURI QUINONES Rep #: [id number] : 1955 69 From: Sukumar Restrepo MD [...] MD; Dr. Rigoberto Gould MD Signed Normal [facility] Eosinophil percentageOrdered By: Sukumar Restrepo on 12-13-2024 Eosinophils/100 WBC (Bld) 2.1 % 0-5 [facility] Erythrocyte distribution wid th (RBC) [Ratio]Ordered By: Sukumar Restrepo on 12-13-2024 Erythrocyte distribution width (RBC) [Entitic vol] 58.9 fL High 35.1-43.9 [facility] Erythrocyte distribution wid th ratioOrdered By: Sukumar Restrepo on 12-13-2024 Erythrocyte distribution width (RBC) [Ratio] 17.4 % High 11.6-14.6 [facility] Erythrocyte distribution wid th standard deviationOrdered By: Sukumar Restrepo on 12-13-2024 Erythrocyte distribution width (RBC) [Ratio] 58.9 fl High 35.1-43.9 [facility] Estimation of creatinine wayne aranceOrdered By: Sukumar Restrepo on 12-13-2024 Estimated Creatinine Clearance Calc 11.28 ml/min Low 50-250 [facility] GFR/1.73 sq M.predicted corazon g non-blacks MDRD (S/P/Bld) [Vol rate/Area]Ordered By: Sukumar Restrepo on 12-13-2024 Estimated GFR (MDRD) Non-Af Amer 9 Low >60 [facility] Comment on above: mL/min/1.73m2 CKD-EP I Creatinine Equation (2020) Glomerular filtration rate ( GFR) estimation/1.73 sq m using serum, plasma, or whole bOrdered By: Sukumar Restrepo on 12-13-2024 GFR/1.73 sq M.predicted among non-blacks MDRD (S/P/Bld) [Vol rate/Area] 9 mL/min/{1.73_m2} Low >60 [facility] Glucose measurement at bedsi deOrdered By: Sukumar Restrepo on 12-13-2024 Bedside Glucose (Misc Panel) 77 mg/dL 74-106 [facility] Comment on above: MANAGEMENT OF PATIEN T CARE PER NURSING PROTOCOL Glucose [Mass/Vol] 77 mg/dL 74-106 [place] Hematocrit Auto (Bld) [Volum e fraction]Ordered By: Sukumar Restrepo on 12-13-2024 Hematocrit (Bld) [Volume fraction] 36.6 % Low 40-54 [facility] Hemoglobin measurementOrdere d By: Sukumar Restrepo on 12-13-2024 Hemoglobin (Bld) [Mass/Vol] 12.1 g/dL Low 13.0-16.5 [facility] Immature granulocytes/100 WB C Auto (Bld)Ordered By: Sukumar Restrepo on 12-13-2024 Immature granulocytes/100 WBC (Bld) 0.300 % 0.0-0.9 [facility] Comment on above: IG% - Immature Granu locytes (promyelocytes, myelocytes and metamyelocytes) > 1% indicates that a LEFT SHIFT is Present. Lymphocytes Auto (Unsp spec) [#/Vol]Ordered By: Sukumar Restrepo on 12-13-2024 Lymphocytes (Bld) [#/Vol] 0.80 10*3/uL Low 0.83-4.51 [facility] Lymphocytes/100 WBC Auto (Un sp spec)Ordered By: Sukumar Restrepo on 12-13-2024 Lymphocytes/100 WBC (Bld) 10.5 % Low 19-41 [facility] MCV (mean corpuscular volume ) determinationOrdered By: Sukumar Restrepo on 12-13-2024 MCV (RBC) [Entitic vol] 95.1 fL High 80-94 [facility] Mean corpuscular hemoglobin (MCH) determinationOrdered By: Sukumar Restrepo on 12-13-2024 MCH (RBC) [Entitic mass] 31.4 pg 27.0-32.0 [facility] Mean corpuscular hemoglobin concentration (MCHC) determinationOrdered By: Sukumar Restrepo on 12-13-2024 MCHC (RBC) [Mass/Vol] 33.1 g/dL 32-36 [facility] Mean platelet volume determi nationOrdered By: Sukumar Restrepo on 12-13-2024 Platelet mean volume (Bld) [Entitic vol] 9.7 fL 6.2-12.0 [facility] Monocyte percentageOrdered B y: Sukumar Restrepo on 12-13-2024 Monocytes/100 WBC (Bld) 15.1 % High 0-10 [facility] Neutrophil percentageOrdered By: Sukumar Restrepo on 12-13-2024 Neutrophils/100 WBC (Bld) 71.5 % High 47-70 [facility] Nucleated red blood cell per centageOrdered By: Sukumar Restrepo on 12-13-2024 Nucleated RBC/100 WBC (Bld) [Ratio] 0 % 0-5 [facility] Platelet countOrdered By: Dulce Restrepo on 12-13-2024 Platelets (Bld) [#/Vol] 146 10*3/uL Low 150-450 [facility] Potassium (Unsp spec) [Mass/ Vol]Ordered By: Sukumar Restrepo on 12-13-2024 Potassium [Moles/Vol] 4.4 mmol/L 3.3-5.1 [facility] Potassium measurement (mass/ volume)Ordered By: Sukumar Restrepo on 12-13-2024 Potassium (Unsp spec) [Mass/Vol] 4.4 mmol/L 3.3-5.1 [facility] RBC Auto (Bld) [#/Vol]Ordere d By: Sukumar Restrepo on 12-13-2024 RBC (Bld) [#/Vol] 3.85 10*6/uL Low 4.6-6.2 [facility] Serum creatinine measurement (mass/volume)Ordered By: Sukumar Restrepo on 12-13-2024 Creatinine [Mass/Vol] 6.56 mg/dL High 0.70-1.20 [facility] Serum glucose measurement (m ass/volume)Ordered By: Sukumar Restrepo on 12-13-2024 Glucose [Mass/Vol] 59 mg/dL Low 70-99 [place] Serum or plasma calcium sneha urement (mass/volume)Ordered By: Sukumar Restrepo on 12-13-2024 Calcium [Mass/Vol] 9.4 mg/dL 7.6-11.0 [place] Serum or plasma urea nitroge n measurement (mass/volume)Ordered By: Sukumar Restrepo on 12-13-2024 Urea nitrogen [Mass/Vol] 87 mg/dL High 4-19 [facility] Sodium levelOrdered By: Gurjit Restrepo on 12-13-2024 Sodium [Moles/Vol] 134 mmol/L 133-145 [place] White blood cell (WBC) count Ordered By: Sukumar Restrepo on 12-13-2024 WBC (Bld) [#/Vol] 7.6 10*3/uL 4.4-11.0 [place] Basic Metabolic Profile (BMP )on 12-12-2024 BUN/CRE 15.6 RATIO Normal 10-20 [facility] Comment on above: Performed By: #### L 500.2500 ####[facility] [address] [place], [address] Calcium [Mass/Vol] 9.6 mg/dL Normal 7.6-11.0 [place] Comment on above: Performed By: #### L 500.2500 ####[facility] [address] [place], [address] Chloride [Moles/Vol] 86 mmol/L Low 98-108 [facility] Comment on above: Performed By: #### L 500.2500 ####[facility] [address] [place], [address] CO2 [Moles/Vol] 15.9 mmol/L Low 21.0-32.0 [facility] Comment on above: Performed By: #### L 500.2500 ####[facility] [address] [place], [address] Creatinine [Mass/Vol] 8.40 mg/dL Invalid Interpretation Code 0.70-1.20 [facility] Comment on above: Result Comment: Crit ical Result(s) Called at 0113: by: NBURNS TO MGROVE??Results read back by same. Performed By: #### L 500.2500 ####[facility] [address] [place], [address] ECRCL 8.81 ml/min Invalid Interpretation Code 50-250 [facility] Comment on above: Performed By: #### L 500.2500 ####[facility] [address] [place], [address] GAP 28 High 5-15 [facility] Comment on above: Performed By: #### L 500.2500 ####[facility] [address] [place], [address] GFR/1.73 sq M.predicted among non-blacks MDRD (S/P/Bld) [Vol rate/Area] 6 mL/min/{1.73_m2} Low >60 [facility] Comment on above: Result Comment: mL/m in/1.73m2 CKD-EPI Creatinine Equation (2020) Performed By: #### L 500.2500 ####[facility] [address] [place], [address] Glucose [Mass/Vol] 93 mg/dL Normal 70-99 [place] Comment on above: Performed By: #### L 500.2500 ####[facility] [address] [place], [address] Potassium [Moles/Vol] 5.4 mmol/L High 3.3-5.1 [facility] Comment on above: Performed By: #### L 500.2500 ####[facility] [address] [place], [address] Sodium [Moles/Vol] 129 mmol/L Low 133-145 [place] Comment on above: Performed By: #### L 500.2500 ####[facility] [address] [place], [address] Urea nitrogen [Mass/Vol] 131 mg/dL Invalid Interpretation Code 12-13 [facility] Comment on above: Result Comment: Crit ical Result(s) Called at 0113: by: NBURNS TO MGROVE??Results read back by same. Performed By: #### L 500.2500 ####[facility] [address] [place], [address] Bedside Glucoseon 12-12-2024 FINGERSTICK GLU 79 mg/dL Normal 74-106 [facility] Comment on above: Result Comment: BONI GEMENT OF PATIENT CARE PER NURSING PROTOCOL Performed By: #### L 501.080 ####[facility] [address] [place], [address] FINGERSTICK GLU 131 mg/dL High 74-106 [facility] Comment on above: Result Comment: BONI GEMENT OF PATIENT CARE PER NURSING PROTOCOL Performed By: #### L 501.080 ####[facility] [address] [place], [address] FINGERSTICK GLU 64 mg/dL Low 74-106 [facility] Comment on above: Result Comment: BONI GEMENT OF PATIENT CARE PER NURSING PROTOCOL Performed By: #### L 501.080 ####[facility] [address] [place], [address] FINGERSTICK GLU 61 mg/dL Low 74-106 [facility] Comment on above: Result Comment: BONI GEMENT OF PATIENT CARE PER NURSING PROTOCOL Performed By: #### L 509.7001 #### [facility] Laboratory [address] [place], [address] FINGERSTICK GLU 71 mg/dL Low 74-106 [facility] Comment on above: Result Comment: BONI GEMENT OF PATIENT CARE PER NURSING PROTOCOL Performed By: #### L 501.080 #### [facility] [address] [place], [address] FINGERSTICK GLU 63 mg/dL Low 74-106 [facility] Comment on above: Result Comment: BONI GEMENT OF PATIENT CARE PER NURSING PROTOCOL Performed By: #### L 501.080 #### [facility] [address] [place], [address] FINGERSTICK GLU 114 mg/dL High 74-106 [facility] Comment on above: Result Comment: BONI GEMENT OF PATIENT CARE PER NURSING PROTOCOL Performed By: #### L 501.080 ####[facility] [address] [place], [address] FINGERSTICK GLU 75 mg/dL Normal 74-106 [facility] Comment on above: Result Comment: BONI GEMENT OF PATIENT CARE PER NURSING PROTOCOL Performed By: #### L 501.080 #### [facility] [address] [place], [address] FINGERSTICK GLU 133 mg/dL High 74-106 [facility] Comment on above: Result Comment: BONI GEMENT OF PATIENT CARE PER NURSING PROTOCOL Performed By: #### L 501.080 ####[facility] [address] [place], [address] FINGERSTICK GLU 89 mg/dL Normal 74-106 [facility] Comment on above: Result Comment: BONI KASPER OF PATIENT CARE PER NURSING PROTOCOL Performed By: #### L 501.080 #### [facility] [address] [place], [address] Bilirubin, totalOrdered By: Mary Jo Granados on 12-12-2024 Bilirubin [Mass/Vol] 0.93 mg/dL 0.00-1.30 [facility] CBC W/Diff, Automatedon 11-25 Absolute Lymph 0.69 X10 3/uL Low 0.83-4.51 [facility] Comment on above: Performed By: #### L 501.9520, L500.4050, L100.0100, L500.4100 ####[facility] [address] [place], [address] Absolute Neut 6.2 X10 3/uL Normal 2.0-7.7 [facility] Comment on above: Performed By: #### L 501.9520, L500.4050, L100.0100, L500.4100 ####[facility] [address] [place], [address] Basophils/100 WBC (Bld) 0.4 % Normal 0-1 [facility] Comment on above: Performed By: #### L 501.9520, L500.4050, L100.0100, L500.4100 ####[facility] [address] [place], [address] Eosinophils/100 WBC (Bld) 0.9 % Normal 0-5 [facility] Comment on above: Performed By: #### L 501.9520, L500.4050, L100.0100, L500.4100 ####[facility] [address] [place], [address] Erythrocyte distribution width (RBC) [Ratio] 16.8 % High 11.6-14.6 [facility] Comment on above: Performed By: #### L 501.9520, L500.4050, L100.0100, L500.4100 ####[facility] [address] [place], [address] Hematocrit (Bld) [Volume fraction] 33.9 % Low 40-54 [facility] Comment on above: Performed By: #### L 501.9520, L500.4050, L100.0100, L500.4100 ####[facility] [address] [place], [address] Hemoglobin (Bld) [Mass/Vol] 11.8 g/dL Low 13.0-16.5 [facility] Comment on above: Performed By: #### L 501.9520, L500.4050, L100.0100, L500.4100 ####[facility] [address] [place], [address] IG% 0.500 Normal 0.0-0.9 [facility] Comment on above: Result Comment: IG% - Immature Granulocytes (promyelocytes, myelocytes and metamyelocytes) > 1% indicates that a LEFT SHIFT is Present. Performed By: #### L 501.9520, L500.4050, L100.0100, L500.4100 ####[facility] [address] [place], [address] Lymphocytes/100 WBC (Bld) 8.4 % Low 19-41 [facility] Comment on above: Performed By: #### L 501.9520, L500.4050, L100.0100, L500.4100 ####[facility] [address] [place], [address] MCH (RBC) [Entitic mass] 32.0 pg Normal 27.0-32.0 [facility] Comment on above: Performed By: #### L 501.9520, L500.4050, L100.0100, L500.4100 ####[facility] [address] [place], [address] MCHC (RBC) [Mass/Vol] 34.8 g/dL Normal 32-36 [facility] Comment on above: Performed By: #### L 501.9520, L500.4050, L100.0100, L500.4100 ####[facility] [address] [place], [address] MCV (RBC) [Entitic vol] 91.9 fL Normal 80-94 [facility] Comment on above: Performed By: #### L 501.9520, L500.4050, L100.0100, L500.4100 ####[facility] [address] [place], [address] Monocytes/100 WBC (Bld) 14.7 % High 0-10 [facility] Comment on above: Performed By: #### L 501.9520, L500.4050, L100.0100, L500.4100 ####[facility] [address] [place], [address] Neutrophils/100 WBC (Bld) 75.1 % High 47-70 [facility] Comment on above: Performed By: #### L 501.9520, L500.4050, L100.0100, L500.4100 ####[facility] [address] [place], [address] Nucleated RBC (Bld) [#/Vol] 0 10*3/uL Normal 0-5 [facility] Comment on above: Performed By: #### L 501.9520, L500.4050, L100.0100, L500.4100 ####[facility] [address] [place], [address] Platelet mean volume (Bld) [Entitic vol] 10.3 fL Normal 6.2-12.0 [facility] Comment on above: Performed By: #### L 501.9520, L500.4050, L100.0100, L500.4100 ####[facility] [address] [place], [address] Platelets (Bld) [#/Vol] 128 10*3/uL Low 150-450 [facility] Comment on above: Performed By: #### L 501.9520, L500.4050, L100.0100, L500.4100 ####[facility] [address] [place], [address] RBC (Bld) [#/Vol] 3.69 10*6/uL Low 4.6-6.2 [facility] Comment on above: Performed By: #### L 501.9520, L500.4050, L100.0100, L500.4100 ####[facility] [address] [place], [address] RDW SD 55.1 fl High 35.1-43.9 [facility] Comment on above: Performed By: #### L 501.9520, L500.4050, L100.0100, L500.4100 ####[facility] [address] [place], [address] WBC (Bld) [#/Vol] 8.2 10*3/uL Normal 4.4-11.0 [place] Comment on above: Performed By: #### L 501.9520, L500.4050, L100.0100, L500.4100 ####[facility] [address] [place], [address] Calculated very low density lipoprotein (VLDL) cholesterol measurementOrdered By: Mary Jo Granados on 12-12-2024 Calculated very low density lipoprotein (VLDL) cholesterol measurement 16 mg/dL -40 [facility] VLDL Cholesterol 16 mg/dL -40 [facility] Comprehensive Metabolic Prof ilon 12-12-2024 Albumin [Mass/Vol] 3.6 g/dL Normal 3.4-4.8 [place] Comment on above: Performed By: #### L 501.9520, L500.4050, L100.0100, L500.4100 ####[facility] [address] [place], [address] Albumin/Globulin [Mass ratio] 1.2 {ratio} Normal 0.9-2.4 [facility] Comment on above: Performed By: #### L 501.9520, L500.4050, L100.0100, L500.4100 ####[facility] [address] [place], [address] ALK PHOS 171 U/L High 40-129 [facility] Comment on above: Performed By: #### L 501.9520, L500.4050, L100.0100, L500.4100 ####[facility] [address] [place], [address] ALT [Catalytic activity/Vol] 18 U/L Normal <=46 [facility] Comment on above: Performed By: #### L 501.9520, L500.4050, L100.0100, L500.4100 ####[facility] [address] [place], [address] AST [Catalytic activity/Vol] 32 U/L Normal <=37 [facility] Comment on above: Performed By: #### L 501.9520, L500.4050, L100.0100, L500.4100 ####[facility] [address] [place], [address] Bilirubin [Mass/Vol] 0.93 mg/dL Normal 0.00-1.30 [facility] Comment on above: Performed By: #### L 501.9520, L500.4050, L100.0100, L500.4100 ####[facility] [address], [address] BUN/CRE 14.9 RATIO Normal 10-20 [facility] Comment on above: Performed By: #### L 501.9520, L500.4050, L100.0100, L500.4100 ####[facility] [address] [place], [address] Calcium [Mass/Vol] 9.3 mg/dL Normal 7.6-11.0 [place] Comment on above: Performed By: #### L 501.9520, L500.4050, L100.0100, L500.4100 ####[facility] [address], [address] Chloride [Moles/Vol] 86 mmol/L Low 98-108 [facility] Comment on above: Performed By: #### L 501.9520, L500.4050, L100.0100, L500.4100 ####[facility] [address] [place], [address] CO2 [Moles/Vol] 17.3 mmol/L Low 21.0-32.0 [facility] Comment on above: Performed By: #### L 501.9520, L500.4050, L100.0100, L500.4100 ####[facility] [address] [place], [address] Creatinine [Mass/Vol] 8.32 mg/dL Invalid Interpretation Code 0.70-1.20 [facility] Comment on above: Result Comment: Crit ical Result(s) Called at: 0721 by:??NBURNS TO KELIN Results read back by same. Performed By: #### L 501.9520, L500.4050, L100.0100, L500.4100 ####[facility] [address] [place], [address] ECRCL 8.90 ml/min Invalid Interpretation Code 50-250 [facility] Comment on above: Performed By: #### L 501.9520, L500.4050, L100.0100, L500.4100 ####[facility] [address] [place], [address] GAP 27 High 5-15 [facility] Comment on above: Performed By: #### L 501.9520, L500.4050, L100.0100, L500.4100 ####[facility] [address] [place], [address] GFR/1.73 sq M.predicted among non-blacks MDRD (S/P/Bld) [Vol rate/Area] 6 mL/min/{1.73_m2} Low >60 [facility] Comment on above: Result Comment: mL/m in/1.73m2 CKD-EPI Creatinine Equation (2020) Performed By: #### L 501.9520, L500.4050, L100.0100, L500.4100 ####[facility] [address] [place], [address] Globulin (S) [Mass/Vol] 2.9 g/dL Normal 2.2-4.2 [facility] Comment on above: Performed By: #### L 501.9520, L500.4050, L100.0100, L500.4100 ####[facility] [address] [place], [address] Glucose [Mass/Vol] 68 mg/dL Low 70-99 [place] Comment on above: Performed By: #### L 501.9520, L500.4050, L100.0100, L500.4100 ####[facility] [address] [place], [address] Potassium [Moles/Vol] 5.3 mmol/L High 3.3-5.1 [facility] Comment on above: Performed By: #### L 501.9520, L500.4050, L100.0100, L500.4100 ####[facility] [address] [place], [address] Sodium [Moles/Vol] 130 mmol/L Low 133-145 [place] Comment on above: Performed By: #### L 501.9520, L500.4050, L100.0100, L500.4100 ####[facility] [address] [place], [address] T PROT 6.5 g/dL Normal 5.9-8.4 [facility] Comment on above: Performed By: #### L 501.9520, L500.4050, L100.0100, L500.4100 ####[facility] [address] [place], [address] Urea nitrogen [Mass/Vol] 124 mg/dL Invalid Interpretation Code 4-19 [facility] Comment on above: Result Comment: Crit ical Result(s) Called at: 0721 by:??NBURNS TO AIBACH Results read back by same. Performed By: #### L 501.9520, L500.4050, L100.0100, L500.4100 ####[facility] [address] [place], [address] Consultation - Nephrologyon 12-12-2024 Consultation - Nephrology [facility] Medical Records Department [address] [place] [address] Consultation - Nephrology 12/12/24 0935 MR#: [id number] Acct: [id number] Name: MAURI QUINONES Rep #: [id number] : 1955 69 From: Lauren Mcintyre MD PCP: Dr. Rigoberto Gould MD Status:ADM IN Location: [place] [address] Assessment Plan Assessment/Plan (1) End-stage renal disease [...] dialysis management. ESRD. Patient usually dialyzes at [facility] on TTS schedule. Patient had missed 2 [...] some urine, and there is no LUTS. [facility] Medical History C. difficile diarrhea Anemia History of GI bleed Pure hypercholesterolemia Ischemic cardiomyopathy Essential hypertension Renal insufficiency Ankylosing spondylitis CAD (coronary artery disease) Overweight (BMI 25.0-29.9) Leg edema Leg swelling Acute systolic heart failure Bradycardia Biliary pleural effusion HTN (hypertension) Ventricular tachyarrhythmia Atherosclerosis of [place] coronary artery of [place] heart without angina pectoris Pulmonary HTN Cardiomyopathy [...] History Hist (more content not included)... Normal [facility] Echocardiogram study reportO rdered By: José Miguel Nunez on 12-12-2024 Study report [facility] Cardiovascular Services [address] [place] [address] Echo Complete 12/12/24 1441 MR#: [id number] Acct: [id number] Name: MAURI QUINONES Rep #:[id number] : [...] Dictated: 12/12/24 1441 Date Transcribed: 12/12/24 153 [employer]ist: Signed [facility] Work Phone: Electrocardiogram reportOrde red By: Jensen Claire on 12-12-2024 EKG study [facility] Cardiovascular Services [address] [place] [address] 12 Lead EKG 12/11/24 1535 MR#: [id number] Acct: [id number] Name: MAURI QUINONES Rep #:[id number] : 1955 69 From: Jensen karimi MD Attending Dr: Dr. Sukumar Restrepo MD Status: ADM IN Ordering Dr: Rafa Felder MD Date: 12/11 Location: [facility] Sex: M C Admitted: 12/11/24 Test [...] out anterior TN-old Confirmed by Jensen Claire ([id number]), graphics editor BRYCE DIMAS ([id number]) on 512:44:28 PM Referred By: Confirmed By: Jensen Claire 12/12/24 1244 Date _ Jensen Claire MD CC: Dr. Sukumar Restrepo MD; Dr. Rafa Felder MD; Dr. Rigoberto Gould MD ~ Signed [facility] Work Phone: LDL calc ser/plasOrdered By: Mary Jo Granados on 12-12-2024 Cholesterol in LDL [Mass/Vol] 97 mg/dL [facility] LDL Cholesterol, Calculated 97 mg/dL [facility] Comment on above: Skpefbzdsj=449-186 m g/dL & Higher Neuz=001 mg/dL or greater Laboratory - Chemistry and C hemistry - challengeOrdered By: Mary Jo Granados on 12-12-2024 AST [Catalytic activity/Vol] 32 U/L <38 [facility] Lipid Profileon 12-12-2024 CHOL:HDL 4.12 Normal [facility] Comment on above: Performed By: #### L 501.9520, L500.4050, L100.0100, L500.4100 ####[facility] [address] [place], [address] Cholesterol [Mass/Vol] 149 mg/dL Normal <=200 [facility] Comment on above: Result Comment: Chol esterol level, Desirable <200 mg/dL Borderline high cholesterol 200-239 mg/dL High cholesterol >=240 mg/dL Recommendations of the NCEP Adult Treatment Panel for the following risk-cutoff thresholds for the [place] population. Performed By: #### L 501.9520, L500.4050, L100.0100, L500.4100 ####[facility] [address] [place], [address] Cholesterol in HDL [Mass/Vol] 36 mg/dL Low [facility] Comment on above: Result Comment: [place] onal Cholesterol Education Program (NCEP) guidelines: <40 mg/dL: Low HDL-cholesterol (major risk factor for CHD) >= 60 mg/dL: High HDL-cholesterol (negative risk factor for CHD) HDL-cholesterol is affected by a number of factors, e.g. smoking, exercise, hormones, sex and age. Performed By: #### L 501.9520, L500.4050, L100.0100, L500.4100 ####[facility] [address] [place], [address] Cholesterol in LDL [Mass/Vol] 97 mg/dL Normal [facility] Comment on above: Result Comment: Bord mvpumm=806-991 mg/dL Higher Jdks=943 mg/dL or greater Performed By: #### L 501.9520, L500.4050, L100.0100, L500.4100 ####[facility] [address] [place], [place], [address] Cholesterol in VLDL [Mass/Vol] 16 mg/dL Normal 5-40 [facility] Comment on above: Performed By: #### L 501.9520, L500.4050, L100.0100, L500.4100 ####[facility] [address] [place], [place], [address] Triglyceride [Mass/Vol] 78 mg/dL Normal [facility] Comment on above: Result Comment: The drugs N-Acetylcysteine and Metamizole may falsely depress this assay. Normal range: <150 mg/dL Borderline High: 150-199 mg/dL High: 200-499 mg/dL Very High: >500 mg/dL Performed By: #### L 501.9520, L500.4050, L100.0100, L500.4100 ####[facility] [address] [place], [place], [address] No Panel InformationOrdered By: Darwin on 12-12-2024 32 U/L <38 [facility] RESPIRATORY PANEL MOLECULARo n 12-12-2024 RP PANEL ADENOVIRUS Not Detected INFLUENZA A Not Detected INFLUENZA A (SUBTYPE H1) Not Detected INFLUENZA A (SUBTYPE H3) Not Detected INFLUENZA B Not Detected HUMAN METAPHNEUMO Not Detected PARAINFLUENZA 1 Not Detected PARAINFLUENZA 2 Not Detected PARAINFLUENZA 3 Not Detected PARAINFLUENZA 4 Not Detected RHINOVIRUS Not Detected RSV A Not Detected RSV B Not Detected Normal [facility] Comment on above: Performed By: #### M 100.638 ####[facility] [address] [place], [address] Screening total cholesterol/ high density lipoprotein (HDL) cholesterol ratioOrdered By: Mary Jo Darwin on 12-12-2024 Cholesterol.total/Cho lesterol in HDL [Mass ratio] 4.12 {ratio} [facility] Serum globulin measurementOr dered By: Mary Jo Darwin on 12-12-2024 Globulin (S) [Mass/Vol] 2.9 g/dL 2.2-4.2 [facility] Serum or plasma alanine brink otransferase (ALT) measurementOrdered By: Mary Jo Darwin on 12-12-2024 ALT [Catalytic activity/Vol] 18 U/L <47 [facility] Serum or plasma albumin sneha urement (mass/volume)Ordered By: Mary Jo Darwin 12-12-2024 Albumin [Mass/Vol] 3.6 g/dL 3.4-4.8 [facility] Serum or plasma albumin/glob ulin mass ratioOrdered By: [facility] on 12-12-2024 Albumin/Globulin [Mass ratio] 1.2 {ratio} 0.9-2.4 [facility] Serum or plasma alkaline darin sphatase measurementOrdered By: [facility] 12-12-2024 ALP [Catalytic activity/Vol] 171 U/L High 40-129 [facility] Serum or plasma cholesterol in HDL measurement (mass/volume)Ordered By: Mary Jo Darwin 12-12-2024 Cholesterol in HDL [Mass/Vol] 36 mg/dL Low >40 [facility] Comment on above: National Cholesterol Education Program (NCEP) guidelines:<40 mg/dL: Low HDL-cholesterol (major risk factor for CHD)>= 60 mg/dL: High HDL-cholesterol (negative risk factor for CHD)HDL-cholesterol is affected by a number of factors, e.g. smoking, exercise, hormones, sex and age. Serum or plasma cholesterol measurement (mass/volume)Ordered By: Mary Jo Darwin on 12-12-2024 Cholesterol [Mass/Vol] 149 mg/dL <201 [facility] Comment on above: Cholesterol level, D esirable <200 mg/dLBorderline high cholesterol 200-239 mg/dLHigh cholesterol >=240 mg/dLRecommendations of the NCEP Adult Treatment Panel for the following risk-cutoff thresholds for the [place] population. TSH DL <= 0.005 mIU/L QnOrde red By: Mary Jo Granados on 12-12-2024 Thyroid Stimulating Hormone (TSH) 3.050 uIU/mL 0.300-4.200 [facility] [facility] TSH Qn 3.050 uIU/mL 0.300-4.200 [facility] Thyroid Stim Hormone (TSH)on 12-12-2024 TSH 3.050 uIU/mL Normal 0.300-4.200 [facility] Comment on above: Performed By: #### L 501.9520, L500.4050, L100.0100, L500.4100 ####[facility] [address] [place], [address] Total proteinOrdered By: Claudia Granados on 12-12-2024 Protein [Mass/Vol] 6.5 g/dL 5.9-8.4 [place] Triglycerides measurementOrd ered By: Mary Jo Darwin on 12-12-2024 Triglyceride [Mass/Vol] 78 mg/dL <199 [facility] Comment on above: The drugs N-Acetylcy steine and Metamizole may falsely depress this assay. Normal range: <150 mg/dLBorderline High: 150-199 mg/dLHigh: 200-499 mg/dLVery High: >500 mg/dL 12 Lead EKGon 12-11-2024 12 Lead EKG [facility] Cardiovascular Services [address] [place] [address] 12 Lead EKG 12/11/24 1535 MR#: [id number] Acct: [id number] Name: MAURI QUINONES Rep #: [id number] : 1955 69 From: Jensen Claire MD Attending Dr: Dr. Sukumar Restrepo MD Status: ADM IN Ordering Dr: Rfaa Felder MD Date: 12/11/24 Location: [facility] Sex: M C Admitted: 12/11/24 Test [...] out anterior TN-old Confirmed by Jensen Claire ([id number]), graphics editor BRYCE DIMAS ([id number]) on 12/12/2024 12:44:28 PM Referred By: Confirmed By: Jensen Claire 12/12/24 1244 Date Jensen Claire MD CC: Dr. Sukumar Restrepo MD; Dr. Rafa Felder MD; Dr. Rigoberto Gould MD Signed Normal [facility] Absolute neutrophil countOrd ered By: Rafa Felder on 12-11-2024 Neutrophils (Bld) [#/Vol] 7.0 10*3/uL 2.0-7.7 [facility] Anion gap in Serum or Plasma Ordered By: Rafa Felder on 12-11-2024 Anion gap [Moles/Vol] 26 mmol/L High - [facility] BUN/creatinine ratioOrdered By: Rafarima Felder on 12-11-2024 Urea nitrogen/Creatinine [Mass ratio] 15.4 mg/mg - [facility] Basic Metabolic Profile (BMP )on 12-11-2024 BUN/CRE 14.9 RATIO Normal 06-15 [facility] Comment on above: Performed By: #### L 500.2500 #### [facility] Laboratory [address] [place], [address] Calcium [Mass/Vol] 9.8 mg/dL Normal 7.6-11.0 [place] Comment on above: Performed By: #### L 500.2500 #### [facility] Laboratory [address] [place], [address] Chloride [Moles/Vol] 85 mmol/L Low 98-108 [facility] Comment on above: Performed By: #### L 500.2500 #### [facility] Laboratory [address] [place], [address] CO2 [Moles/Vol] 16.7 mmol/L Low 21.0-32.0 [facility] Comment on above: Performed By: #### L 500.2500 #### [facility] Laboratory [address] [place], [address] Creatinine [Mass/Vol] 8.21 mg/dL Invalid Interpretation Code 0.70-1.20 [facility] Comment on above: Result Comment: Crit ical Result(s) Called at 2311: by:?? NBURNS TO AFLICKINGER Results read back by same. Performed By: #### L 500.2500 #### [facility] Laboratory [address] [place], [address] ECRCL 9.02 ml/min Invalid Interpretation Code 50-250 [facility] Comment on above: Performed By: #### L 500.2500 #### [facility] Laboratory [address] [place], [address] GAP 29 High 5-15 [facility] Comment on above: Performed By: #### L 500.2500 #### [facility] Laboratory [address] [place], [address] GFR/1.73 sq M.predicted among non-blacks MDRD (S/P/Bld) [Vol rate/Area] 7 mL/min/{1.73_m2} Low >60 [facility] Comment on above: Result Comment: mL/m in/1.73m2 CKD-EPI Creatinine Equation (2020) Performed By: #### L 500.2500 #### [facility] Laboratory [address] [place], [address] Glucose [Mass/Vol] 148 mg/dL High 70-99 [place] Comment on above: Performed By: #### L 500.2500 #### [facility] Laboratory [address] [place], [address] Potassium [Moles/Vol] 5.9 mmol/L High 3.3-5.1 [facility] Comment on above: Performed By: #### L 500.2500 #### [facility] Laboratory [address] [place], [address] Sodium [Moles/Vol] 130 mmol/L Low 133-145 [place] Comment on above: Performed By: #### L 500.2500 #### [facility] Laboratory [address] [place], [address] Urea nitrogen [Mass/Vol] 122 mg/dL Invalid Interpretation Code 4-19 [facility] Comment on above: Result Comment: Crit ical Result(s) Called at 2311: by:?? NBURNS TO AFLICKINGER Results read back by same. Performed By: #### L 500.2500 #### [facility] Laboratory [address] [place], [address] BUN/CRE 15.4 RATIO Normal 10-20 [facility] Comment on above: Performed By: #### L 501.080 #### [facility] Laboratory [address] [place], [address] Calcium [Mass/Vol] 10.0 mg/dL Normal 7.6-11.0 [place] Comment on above: Performed By: #### L 501.080 #### [facility] Laboratory [address] [place], [address] Chloride [Moles/Vol] 84 mmol/L Low 98-108 [facility] Comment on above: Performed By: #### L 501.080 #### [facility] Laboratory [address] [place], [address] CO2 [Moles/Vol] 21.0 mmol/L Normal 21.0-32.0 [facility] Comment on above: Performed By: #### L 501.080 #### [facility] Laboratory [address] [place], [address] Creatinine [Mass/Vol] 8.04 mg/dL Invalid Interpretation Code 0.70-1.20 [facility] Comment on above: Result Comment: Crit ical Result(s) Called KARYSTHERMELINDO at: 1606 by: MARGUERITE??Results read back by same. Performed By: #### L 501.080 #### [facility] Laboratory [address] [place], [address] GAP 26 High 5-15 [facility] Comment on above: Performed By: #### L 501.080 #### [facility] Laboratory [address] [place], [address] GFR/1.73 sq M.predicted among non-blacks MDRD (S/P/Bld) [Vol rate/Area] 7 mL/min/{1.73_m2} Low >60 [facility] Comment on above: Result Comment: mL/m in/1.73m2 CKD-EPI Creatinine Equation (2020) Performed By: #### L 501.080 #### [facility] Laboratory [address] [place], [address] Glucose [Mass/Vol] 88 mg/dL Normal 70-99 [place] Comment on above: Performed By: #### L 501.080 #### [facility] Laboratory [address] [place], [address] Potassium [Moles/Vol] 5.9 mmol/L High 3.3-5.1 [facility] Comment on above: Performed By: #### L 501.080 #### [facility] Laboratory [address] [place], [address] Sodium [Moles/Vol] 131 mmol/L Low 133-145 [place] Comment on above: Performed By: #### L 501.080 #### [facility] Laboratory [address] [place], [address] Urea nitrogen [Mass/Vol] 124 mg/dL Invalid Interpretation Code 4-19 [facility] Comment on above: Result Comment: Crit ical Result(s) Called ZAUMER at: 1606 by: MARGUERITE??Results read back by same. Performed By: #### L 501.080 #### [facility] Laboratory [address] [place], [address] Basophil percentageOrdered B y: Rafa Felder on 12-11-2024 Basophils/100 WBC (Bld) 0.7 % 0-1 [facility] CBC W/Diff, Automatedon 04-09 02-2024 Absolute Lymph 0.70 X10 3/uL Low 0.83-4.51 [facility] Comment on above: Performed By: #### L 501.080 #### [facility] Laboratory [address] [place], [address] Absolute Neut 7.0 X10 3/uL Normal 2.0-7.7 [facility] Comment on above: Performed By: #### L 501.080 #### [facility] Laboratory [address] [place], [address] Basophils/100 WBC (Bld) 0.7 % Normal 0-1 [facility] Comment on above: Performed By: #### L 501.080 #### [facility] Laboratory [address] [place], [address] Eosinophils/100 WBC (Bld) 0.9 % Normal 0-5 [facility] Comment on above: Performed By: #### L 501.080 #### [facility] Laboratory [address] [place], [address] Erythrocyte distribution width (RBC) [Ratio] 17.0 % High 11.6-14.6 [facility] Comment on above: Performed By: #### L 501.080 #### [facility] Laboratory [address] [place], [address] Hematocrit (Bld) [Volume fraction] 37.2 % Low 40-54 [facility] Comment on above: Performed By: #### L 501.080 #### [facility] Laboratory [address] [place], [address] Hemoglobin (Bld) [Mass/Vol] 13.0 g/dL Normal 13.0-16.5 [facility] Comment on above: Performed By: #### L 501.080 #### [facility] Laboratory [address] [place], [address] IG% 0.400 Normal 0.0-0.9 [facility] Comment on above: Result Comment: IG% - Immature Granulocytes (promyelocytes, myelocytes and metamyelocytes) > 1% indicates that a LEFT SHIFT is Present. Performed By: #### L 501.080 #### [facility] Laboratory [address] [place], [address] Lymphocytes/100 WBC (Bld) 7.7 % Low 19-41 [facility] Comment on above: Performed By: #### L 501.080 #### [facility] Laboratory [address] [place], [address] MCH (RBC) [Entitic mass] 32.4 pg High 27.0-32.0 [facility] Comment on above: Performed By: #### L 501.080 #### [facility] Laboratory [address] [place], [address] MCHC (RBC) [Mass/Vol] 34.9 g/dL Normal 32-36 [facility] Comment on above: Performed By: #### L 501.080 #### [facility] Laboratory [address] [place], [address] MCV (RBC) [Entitic vol] 92.8 fL Normal 80-94 [facility] Comment on above: Performed By: #### L 501.080 #### [facility] Laboratory [address] [place], [address] Monocytes/100 WBC (Bld) 13.0 % High 0-10 [facility] Comment on above: Performed By: #### L 501.080 #### [facility] Laboratory [address] [place], [address] Neutrophils/100 WBC (Bld) 77.3 % High 47-70 [facility] Comment on above: Performed By: #### L 501.080 #### [facility] Laboratory [address] [place], [address] Nucleated RBC (Bld) [#/Vol] 0 10*3/uL Normal 0-5 [facility] Comment on above: Performed By: #### L 501.080 #### [facility] Laboratory [address] [place], [address] Platelet mean volume (Bld) [Entitic vol] 10.1 fL Normal 6.2-12.0 [facility] Comment on above: Performed By: #### L 501.080 #### [facility] Laboratory [address] [place], [address] Platelets (Bld) [#/Vol] 120 10*3/uL Low 150-450 [facility] Comment on above: Performed By: #### L 501.080 #### [facility] Laboratory [address] [place], [address] RBC (Bld) [#/Vol] 4.01 10*6/uL Low 4.6-6.2 [facility] Comment on above: Performed By: #### L 501.080 #### [facility] Laboratory [address] [place], [address] RDW SD 56.2 fl High 35.1-43.9 [facility] Comment on above: Performed By: #### L 501.080 #### [facility] Laboratory [address] [place], [address] WBC (Bld) [#/Vol] 9.1 10*3/uL Normal 4.4-11.0 [place] Comment on above: Performed By: #### L 501.080 #### [facility] Laboratory [address] [place], [address] Carbon dioxide, total [Moles /volume] in Central venous bloodOrdered By: Rafa Felder on 12-11-2024 CO2 [Moles/Vol] 21.0 mmol/L 21.0-32.0 [facility] Chest PA and Lateralon 12-11 Chest PA and Lateral [facility] Imaging Services [address] [place] [address] Chest PA and Lateral MR#: [id number] Acct: [id number] Name: MAURI QUINONES Rep #: [id number] : 1955 M 69 From: Lee Davis MD PCP: Dr. Rigoberto Gould MD Status: REG ER Study: Chest PA and Lateral Date of Exam: 12/11/24 Exam# [id number] Ordering Dr: Rafa Felder MD PROCEDURE: CHEST [...] and Lateral IMPRESSION: CHF exacerbation. Reading Location: [facility] CC: Dr. Rafa Felder MD; Dr. Rigoberto Gould MD [employer] Personnel Specialist: Signed Normal [facility] Chloride assayOrdered By: Crys Felder on 12-11-2024 Chloride [Moles/Vol] 84 mmol/L Low 98-108 [facility] Consultation - Cardiologyon 12-11-2024 Consultation - Cardiology [facility] Medical Records Department [address] [place] [address] Consultation - Cardiology 12/11/24 1753 MR#: [id number] Acct: [id number] Name: MAURI QUINONES Rep #: [id number] : 1955 69 From: Jensen Claire MD [...] an echocardiog (more content not included)... Normal [facility] Echo Completeon 12-11-2024 Echo Complete [facility] Cardiovascular Services [address] [place] [address] Echo Complete 12/12/24 1441 MR#: [id number] Acct: [id number] Name: MAURI QUINONES Rep #: [id number] : 1955 69 From: José Miguel Nunez MD Attending Dr: Dr. Sukumar Restrepo MD Status: ADM IN Ordering Dr: Mary Jo Granados MD Date: 12/11/24 Location: [facility] Sex: M C Admitted: 12/11/24 Reason [...] Dictated: 12/12/24 1441 Date Transcribed: 12/12/24 1535 [employer] Person[employer] Specialist: Signed Normal [facility] Emergency Department Summary on 12-11-2024 Emergency Department Summary [facility] Medical Records Department [address] [place] [address] Emergency Department Summary 12/11/24 MR#: [id number] Acct: [id number] Name: MAURI QUINONES Rep #: [id number] : 1955 69 From: Rafa Felder MD [...] similar symptoms: Yes Recent Illness/Hospitalization: No PFSH [facility] Medical History C. difficile diarrhea Anemia History of GI bleed Pure hypercholesterolemia Ischemic cardiomyopathy Essential hypertension Renal insufficiency Ankylosing spondylitis CAD (coronary artery disease) Overweight (BMI 25.0-29.9) Leg edema Leg swelling Acute systolic heart failure Bradycardia Biliary pleural effusion HTN (hypertension) Ventricular tachyarrhythmia Atherosclerosis of [place] coronary artery of [place] heart without angina pectoris Pulmonary HTN Cardiomyopathy [...] femur surger (more content not included)... Normal [facility] Eosinophil percentageOrdered By: [facility] on 12-11-2024 Eosinophils/100 WBC (Bld) 0.9 % 0-5 [facility] Erythrocyte distribution wid th (RBC) [Ratio][facility] Erythrocyte distribution width (RBC) [Entitic vol] 56.2 fL High 35.1-43.9 [facility] Erythrocyte distribution wid th ratioOrdered By: Rafarima Felder on 12-11-2024 Erythrocyte distribution width (RBC) [Ratio] 17.0 % High 11.6-14.6 [facility] GFR/1.73 sq M.predicted corazon g non-blacks MDRD (S/P/Bld) [Vol rate/Area]Ordered By: Rafarima Felder on 12-11-2024 Estimated GFR (MDRD) Non-Af Amer 7 Low >60 [facility] Comment on above: mL/min/1.73m2 CKD-EP I Creatinine Equation (2020) [facility] H&P Exam - Hospitalist [facility] Medical Records Department [address] [place] [address] H P Exam - Hospitalist 12/11/24 1652 MR#: [id number] Acct: [id number] Name: MAURI QUINONES Rep #: [id number] : 1955 69 From: Mary Jo Granados [...] Former tobacco use who presents to the [facility] ED on 12/11/24 with history of [...] and no concern for peaked T waves. [facility] Medical History C. difficile diarrhea Anemia History of GI bleed Pure hypercholesterolemia Ischemic cardiomyopathy Essential hypertension Renal insufficiency Ankylosing spondylitis CAD (coronary artery disease) Overweight (BMI 25.0-29.9) Leg edema Leg swelling Acute systolic heart failure Bradycardia Biliary pleural effusion HTN (hypertension) Ventricular tachyarrhythmia Atherosclerosis of [place] coronary artery of [place] heart without angina pectoris Pulmonary HTN Cardiomyopathy [...] hx f (more content not included)... Normal [facility] Hematocrit Auto (Bld) [Volum e fraction]Ordered By: [facility] on 12-11-2024 Hematocrit (Bld) [Volume fraction] 37.2 % Low 40-54 [facility] Hemoglobin measurementOrdere d By: [facility] on 12-11-2024 Hemoglobin (Bld) [Mass/Vol] 13.0 g/dL 13.0-16.5 [facility] Immature granulocytes/100 WB C Auto (Bld)Ordered By: [facility] on 12-11-2024 Immature granulocytes/100 WBC (Bld) 0.400 % 0.0-0.9 [facility] Comment on above: IG% - Immature Granu locytes (promyelocytes, myelocytes and metamyelocytes) > 1% indicates that a LEFT SHIFT is Present. Influenza virus A and B and SARS-CoV-2 (COVID-19) and Respiratory syncytial virus RNAOrdered By: [facility] on 12-11-2024 SARS-CoV-2 (COVID-19) RNA AMADOU+probe Ql (Unsp spec) [facility] L509.7001on 12-11-2024 Procalcitonin 1.39 ng/mL High <=0.10 [facility] Comment on above: Result Comment: Inte rpretation: [...] patient. Performed By: #### L 509.7001 #### [facility] Laboratory [facility] [place], [address] Lymphocytes Auto (Unsp spec) [#/Vol]Ordered By: Rafa Felder on 12-11-2024 Lymphocytes (Bld) [#/Vol] 0.70 10*3/uL Low 0.83-4.51 [facility] Lymphocytes/100 WBC Auto (Un sp spec)Ordered By: Rafa Felder on 12-11-2024 Lymphocytes/100 WBC (Bld) 7.7 % Low 19-41 [facility] M100.678on 12-11-2024 M100.678 Pending SARS-CoV-2 (COVID 19) Negative INFLUENZA A Negative INFLUENZA B Negative RSV PCR Negative Normal [facility] Comment on above: Performed By: #### M 100.678 ####[facility] [id number] [place], [place], [id number] MCV (mean corpuscular volume ) determinationOrdered By: Rafa Felder on 12-11-2024 MCV (RBC) [Entitic vol] 92.8 fL 80-94 [facility] Magnesiumon 12-11-2024 Magnesium [Mass/Vol] 2.6 mg/dL High 1.5-2.2 [facility] Comment on above: Order Comment: Comme nts: May add to ED labsComments: may add to ED labs Performed By: #### L 501.080 #### [facility] Laboratory [address] [place], [place], [address] Magnesium (Unsp spec) [Mass/ Vol]Ordered By: Mary Jo Granados on 12-11-2024 Magnesium [Mass/Vol] 2.6 mg/dL High 1.5-2.2 [facility] Magnesium measurement (mass/ volume)Ordered By: Mary Jo Granados on 12-11-2024 Magnesium (Unsp spec) [Mass/Vol] 2.6 mg/dL High 1.5-2.2 [facility] Mean corpuscular hemoglobin (MCH) determinationOrdered By: Rafa Felder on 12-11-2024 MCH (RBC) [Entitic mass] 32.4 pg High 27.0-32.0 [facility] Mean corpuscular hemoglobin concentration (MCHC) determinationOrdered By: Rafa Felder on 12-11-2024 MCHC (RBC) [Mass/Vol] 34.9 g/dL 32-36 [facility] Mean platelet volume determi nationOrdered By: Rafa Munizo on 12-11-2024 Platelet mean volume (Bld) [Entitic vol] 10.1 fL 6.2-12.0 [facility] Monocyte percentageOrdered B y: Rafa Felder on 12-11-2024 Monocytes/100 WBC (Bld) 13.0 % High 0-10 [facility] Neutrophil percentageOrdered By: Rafarima Munizo on 12-11-2024 Neutrophils/100 WBC (Bld) 77.3 % High 47-70 [facility] Nucleated red blood cell per centageOrdered By: Rafarima Munizo on 12-11-2024 Nucleated RBC/100 WBC (Bld) [Ratio] 0 % 0-5 [facility] Phosphoruson 12-11-2024 Phosphate [Mass/Vol] 12.7 mg/dL Invalid Interpretation Code 2.7-4.5 [facility] Comment on above: Order Comment: Comme nts: [...] same. Performed By: #### L 501.080 #### [facility] Laboratory [address] [place], [address] Platelet countOrdered By: Crys rima Munizo on 12-11-2024 Platelets (Bld) [#/Vol] 120 10*3/uL Low 150-450 [facility] Potassium (Unsp spec) [Mass/ Vol]Ordered By: Rafa Fedler on 12-11-2024 Potassium [Moles/Vol] 5.9 mmol/L High 3.3-5.1 [facility] Procalcitonin [place] [Mass/Vol]O rdered By: Mary Jo Granados on 12-11-2024 Procalcitonin 1.39 ng/mL High <0.11 [facility] Comment on above: Interpretation:<0.10 -0.25 ng/mL: Antibiotic [...] Procalcitonin [place] [Mass/Vol] 1.39 ng/mL High <0.11 [facility] RBC Auto (Bld) [#/Vol]Ordere d By: Rafa Felder on 12-11-2024 RBC (Bld) [#/Vol] 4.01 10*6/uL Low 4.6-6.2 [facility] Respiratory pathogens DNA an d RNA panel AMADOU+probe (Resp)Ordered By: [facility] Darwin on 12-11-2024 Respiratory Panel (PCR) [facility] Respiratory pathogens detect ion panel by molecular detection methodOrdered By: [facility] on 12-11-2024 Respiratory pathogens DNA and RNA panel AMADOU+probe (Resp) [facility] Serum creatinine measurement (mass/volume)Ordered By: Rafa Felder on 12-11-2024 Creatinine [Mass/Vol] 8.04 mg/dL High 0.70-1.20 [facility] Comment on above: Critical Result(s) Marianne ELI at: 1606 by: MARGUERITE Results read back by same. Serum glucose measurement (m ass/volume)Ordered By: Rafa Felder on 12-11-2024 Glucose [Mass/Vol] 88 mg/dL 70-99 [place] Serum or plasma calcium sneha urement (mass/volume)Ordered By: Rafa Felder on 12-11-2024 Calcium [Mass/Vol] 10.0 mg/dL 7.6-11.0 [place] Serum or plasma urea nitroge n measurement (mass/volume)Ordered By: Rafa Felder on 12-11-2024 Urea nitrogen [Mass/Vol] 124 mg/dL High 4-19 [facility] Comment on above: Critical Result(s) Marianne ELI at: 1606 by: MARGUERITE Results read back by same. Serum phosphorus measurement Ordered By: Mary Jo Granados on 12-11-2024 Phosphorus Level 12.7 mg/dL High 2.7-4.5 [facility] Comment on above: Critical Result(s) Marianne IRAHETA [...] 12-11-2024 Sodium [Moles/Vol] 131 mmol/L Low 133-145 [place] White blood cell (WBC) count Ordered By: Rafa Felder on 12-11-2024 WBC (Bld) [#/Vol] 9.1 10*3/uL 4.4-11.0 [place] CNOVon 12-05-2024 CNOV Office Visit (FAMPWS ) -- MAURI QUINONES ([id number]) 1955 M Date Time Provider Department 12/05/24 1:20 PM [facility] During your visit today, we recorded the following information about you: Temperature Pulse Blood pressure Weight 97.3 degrees 85/minute 122/68 81.2 kg Alexus Mendez, LIQUIFIED NATURAL GAS SPECIALIST.ANGIOGRAPHER 12/05/2024 1:45 PM Signed This is a [...] Acute on chronic diastolic congestive heart failure ([facility]) 07/14/2018 GARRET (acute kidney injury) 03/24/2019 GARRET (acute kidney injury) 03/24/2019 Ankylosing spondylitis ([facility]) CAD (coronary artery disease) Cellulitis Chronic combined systolic and diastolic CHF (congestive heart failure) ([facility]) 03/24/2019 CKD (chronic kidney disease) stage 3, GFR 30-59 ml/min ([facility]) 03/24/2019 Constipation Diabetes ([facility]) Gout High phosphate levels 03/24/2019 History of [...] valve calcifi NSTEMI (non-ST elevated myocardial infarction) ([facility]) 03/12/2017 [facility] admit Osteoarthritis Transition of care performed with sharing of clinical summary 04/08/2019 Admit [facility] 03/21/19-03/22/19 Discharge diagnoses chronic kidney disease with worsening creatinine, acute kidney injury Hypokalemia Toxic encephalopathy secondary to Flexeril overusage Type 2 diabetes Ischemic cardiomyopathy Coronary artery disease Ligamental cervical neck strain and acute Pulmonary hypertension Hypertension Pyuria Preadmit: to [facility] ED with slurred speech, lethargy. PAST [...] 1 tablet by mouth every morning. Insulin Winthrop, Disposable, (BD ULTRA-FINE GOLDY PEN NEEDLE) 32 [...] FAMILY HISTORY (more content not included)... Normal [facility] Bacteria Fld Culton 12-04-19 25 Bacteria identified Cx Nom (Body fld) CULTURE, BODY FLD: No growth Normal [facility] Comment on above: Performed By: #### 6 11-4 ####[facility] LABCLIA [id number] [address] Guidance for arthrocentesis of Major jointon 12-03-2024 IMPRESSION: Successful right hip joint injection. Military Personnel Specialist: CARMELA Transcribe Date/Time: Dec 03 2024 3:23P Dictated by : OSMAN JORDAN DO This examination was interpreted and the report reviewed and electronically signed by: OSMAN JORDAN DO on Dec 03 2024 3:24PM [facility] * * *Final Report* * * [...] and left the department in stable condition. [facility] Provider, Phyllis Camp - 12/03/2024 * [...] IMPRESSION IMPRESSION: Successful right hip joint injection. Military Personnel Specialist: PSCLeslye Transcribe Date/Time: Dec 03 2024 3:23P Dictated by : OSMAN JORDAN DO This examination was interpreted and the report reviewed and electronically signed by: OSMAN JORDAN DO on Dec 03 2024 3:24PM EST [facility] Radiology Study observation (narrative) [facility] Guidance for arthrocentesis of Major jointOrdered By: Ccf Provider on 12-03-2024 [facility] SYNOVIAL FLUID MANUAL DIFFon 12-03-2024 DIF TTL, SYNOVIAL FLUID 100 cells counted Normal [facility] Comment on above: Order Comment: Speci men Type: FLUID SPECIMENOrdering Facility: [facility] Address: [address] [place] [address] Performed By: #### L [id number], RTSYNF ####ADAM LABORATORYCLIA [id number] [place] [id number] [facility] [place]#### SFCRID ####ADAM LABORATORYCLIA [id number] [place] [id number] [facility] LABCLIA [id number] [facility] [address] [place] [address] [place] MONO%, SF 3 Normal [facility] Comment on above: Order Comment: Speci men Type: FLUID SPECIMENOrdering Facility: [facility] Address: [address] [place] [address] Performed By: #### L [id number], RTSYNF ####ADAM LABORATORYCLIA [id number] [place] [address] [facility] [place]#### SFCRID ####ADAM LABORATORYCLIA [id number] [place], [place] [id number] [place] [address] LABCLIA [id number] [place] [address] [place] NEUT% 97 High 0-<25 [facility] Comment on above: Order Comment: Speci men Type: FLUID SPECIMENOrdering Facility: [facility] Address: [address] [place] [address] Performed By: #### L [id number], RTSYNF ####ADAM LABORATORYCLIA [id number] [place] [address] [place]#### SFCRID ####AD[facility] LABORATORYCLIA [id number] [place], [place] [address] [place] [address] LABCLIA [id number] [place] [id number] [place] SYNOVIAL FLUID, CRYSTAL ID/P ATHOLOGIST INTERPRETATIONon 12-03-2024 CRYSTAL PRELIM, SF PRELIMINARY REPORT N o diagnostic crystals seen. SEE FINAL SF PATH REVIEW Normal [facility] Comment on above: Order Comment: Speci men Type: FLUID SPECIMENOrdering Facility: [facility] Address: [address] [place] [address] Performed By: #### L [id number], RTSYNF ####ADAM LABORATORYCLIA [id number] [place] [address] [place]#### SFCRID ####ADAM LABORATORYCLIA [id number] [place], [place] [id number] [place] [address] OF [facility] LABCLIA [id number] [place] [id number] [place] CRYSTAL REVIEW Reviewed by DO Lisa Torres [facility] Comment on above: Order Comment: Speci men Type: FLUID SPECIMENOrdering Facility: [facility] Address: [address] [place] [address] Performed By: #### L [id number], RTSYNF ####ADAM LABORATORYCLIA [id number] [place] [address] [place]#### SFCRID ####ADAM LABORATORYCLIA [id number] [address] STATES OF [facility] LABCLIA [id number] [place] [address] [place] Crystals LM Nom (Syn fld) None seen Normal None seen [facility] Comment on above: Order Comment: Speci men Type: FLUID SPECIMENOrdering Facility: [facility] Address: [address] [place] [address] Performed By: #### L [id number], RTSYNF ####ADAM LABORATORYCLIA [id number] [place] [address] [place]#### SFCRID ####ADAM LABORATORYCLIA [id number] [place] [address] [place] [facility] LABCLIA [id number] [place] [id number] [place] SYNOVIAL FLUID, ROUTINEon Clarity (Unsp spec) Slightly Cloudy Abnormal Clear [facility] Comment on above: Order Comment: Speci men Type: FLUID SPECIMENOrdering Facility: [facility] Address: [address] [place] [address] Performed By: #### L [id number], RTSYNF ####ADAM LABORATORYCLIA [id number] [place] [address] [place]#### SFCRID ####ADAM LABORATORYCLIA [id number] [place] [address] [place] [facility] LABCLIA [id number] [place] [address] [place] Color (Syn fld) Slightly bloody Abnormal Yellow [facility] Comment on above: Order Comment: Speci men Type: FLUID SPECIMENOrdering Facility: [facility] Address: [facility] [place] [address] Performed By: #### L [id number], RTSYNF ####ADAM LABORATORYCLIA [id number] [place] [address] [place]#### SFCRID ####ADAM LABORATORYCLIA [id number] [address] STATES [facility] LABCLIA [id number] [place] [address] [place] RBC Manual cnt (Syn fld) [#/Vol] 0177700 /uL High <2000 [facility] Comment on above: Order Comment: Speci men Type: FLUID SPECIMENOrdering Facility: [facility] Address: [address] [place] [address] Performed By: #### L [id number], RTSYNF ####ADAM LABORATORYCLIA [id number] [place] [address] [place]#### SFCRID ####ADAM LABORATORYCLIA [id number] [place], [place] [id number] [place] [address] STATES OF [facility] LABCLIA [id number] [place] [address] [place] Specimen source Nom (Unsp spec) Hip, Right Normal [facility] Comment on above: Order Comment: Speci men Type: FLUID SPECIMENOrdering Facility: [facility] Address: [address] [place] [address] Performed By: #### L [id number], RTSYNF ####ADAM LABORATORYCLIA [id number] [place] [address] [place]#### SFCRID ####ADAM LABORATORYCLIA [id number] [place] [address] [facility] LABCLIA [id number] [address] STATES [place] WBC Manual cnt (Syn fld) [#/Vol] 5730 /uL High 0-200 [facility] Comment on above: Order Comment: Speci men Type: FLUID SPECIMENOrdering Facility: [facility] Address: [address] [place] [address] Performed By: #### L [id number], RTSYNF ####ADAM LABORATORYCLIA [id number] [address]#### SFCRID ####ADAM LABORATORYCLIA [id number] [address] LABCLIA [id number] [address] OF [facility] XR HIP ASPIRATION RTon 12-03 XR [...] condition. IMPRESSION: Successful right hip joint injection. Military Personnel Specialist: CARMELA Transcribe Date/Time: Dec 03 2024 3:23P Dictated by : OSMAN JORDAN DO This examination was interpreted and the report reviewed and electronically signed by: OSMAN JORDAN DO on Dec 03 2024 3:24PM EST [id number] Normal [facility] Bone 3 Phase Viewson IMPRESSION: * Right hip periprosthetic uptake at the level of the greater trochanter on the delayed phase images, suggesting stress reaction. Follow-up evaluation, as clinically indicated. No abnormal three-phase increased uptake. * Degenerative appearing changes at the left hip and knee joints. Military Personnel Specialist: CARMELA Transcribe Date/Time: Nov 27 2024 7:19A Dictated by : PHUONG CORDOVA MD This examination was interpreted and the report reviewed and electronically signed by: PHUONG CORDOVA MD on Nov 27 2024 7:28AM EST [facility] * * *Final Report* * * [...] the right knee cannot be well localized. [facility] Provider, Phyllis Camp - 11/27/2024 * * *Final Report* * * DATE OF EXAM: Nov 26 2024 2:14PM [facility] - HI BONE 3 PHASE / PROCEDURE REASON: M25.551-Pain [...] at the left hip and knee joints. Military Personnel Specialist: [facility] Transcribe Date/Time: Nov 27 2024 7:19A Dictated by : PHUONG CORDOVA MD This examination was interpreted and the report reviewed and electronically signed by: PHUONG CORDOVA MD on Nov 27 2024 7:28AM [facility] Bone 3 Phase ViewsOrdered By: Ccf Provider on 11-27-2024 [facility] BONE 3 PHASEon 11-26-2024 [place] BONE 3 PHASE * * *Final Report* * * DATE OF EXAM: Nov 26 2024 2:14PM [facility] - HI BONE 3 PHASE / PROCEDURE REASON: M25.551-Pain [...] at the left hip and knee joints. Military Personnel Specialist: CARMELA Transcribe Date/Time: Nov 27 2024 7:19A Dictated by : PHUONG CORDOVA MD This examination was interpreted and the report reviewed and electronically signed by: PHUONG CORDOVA MD on Nov 27 2024 7:28AM EST [id number] [facility] Bone 3 Phase Viewson 0 Radiology Study observation (narrative) [facility] Aniket 11-20-2024 JOCELYNN Telephone (MATTNA) -- MAURI QUINONES ([id number]) 1955 M Date Time Provider Department 11/20/24 [facility] During your visit today, we recorded the following information about you: Lori Pino 11/20/2024 9:36 AM Signed Patient called in, he got the results of his lab work and was curious what thought, please advise. Patient can be reached at #[phone] Yessenia Hewitt PA-C 11/21/2024 1:02 PM Signed [...] [Z96.641] Order(s):SYNOVIAL FLUID, ROUTINE [SQRTSYN] Order #: [id number]. #:[id number] SYNOVIAL FLUID, CRYSTAL ID/PATHOLOGIST INTERPRETATION [SQSFCRID] Order #: [id number] FUTURE BACTERIAL CULTURE AND GRAM STAIN, STERILE BODY FLUID [SQBFCUL] Order #: [id number]. #:[id number] IMAGING GUIDED HIP ASPIRATION RIGHT [9305064] Order #: [id number] FUTURE SYNOVIAL FLUID MANUAL DIFF [LUB0074] Reflex Order#: [id number] (Ord#:[id number])Spec. #:[id number] SYNOVIAL FLUID, CRYSTAL ID/PATHOLOGIST INTERPRETATION [SQSFCRID] Reflex Order#: [id number] (Ord#:[id number])Spec. #:[id number] Prescriptions as of 12/04/2024 - methylPREDNISolone (MEDROL, [...] tablet by mouth every morning. - Insulin Winthrop, Disposable, (BD ULTRA-FINE GOLDY PEN NEEDLE) 32 [...] 12/02/2021 Hypoalbuminemia (more content not included)... [facility] ([id number]) 1955 Date Time Provider Department 11/20/24 [facility] During your visit today, we recorded the following information about you: Farrah Hastings, BISMARK 11/20/2024 12:50 PM Signed Bernice WEINBERG from [facility] calls and states that they will be sending out a home health aide to help patient 3 hours a week. Bernice asking if PCP willing to follow orders? Please review and advise, BISMARK Garcia William J, MD 11/20/2024 1:54 PM Signed Bryce Perea RN 11/20/2024 4:42 PM Signed Called and left a detailed voicemail notifying Bernice WEINBERG from [facility] of providers message. Clinic phone number was [...] tablet by mouth every morning. - Insulin Winthrop, Disposable, (BD ULTRA-FINE GOLDY PEN NEEDLE) 32 [...] of trans*10/06/2020 (more content not included)... Normal [facility] C-REACTIVE PROTEINon 025 CRP [Mass/Vol] 1.8 mg/dL [facility] CBC W Auto Differential pane l (Bld)on 11-14-2024 Basophils (Bld) [#/Vol] [facility] Basophils/100 WBC (Bld) 0.3 % [facility] Differential cell count method Nom (Bld) Auto [facility] Eosinophils (Bld) [#/Vol] 0.12 10*3/uL [facility] Eosinophils/100 WBC (Bld) 1.9 % [facility] Erythrocyte distribution width (RBC) [Ratio] 16.4 % High 11.5 - 15.0 % [facility] Hematocrit (Bld) [Volume fraction] 33.1 % Low 39.0 - 51.0 % [facility] Hemoglobin (Bld) [Mass/Vol] 10.5 g/dL Low 13.0 - 17.0 g/dL [facility] Immature granulocytes (Bld) [#/Vol] [facility] Immature granulocytes/100 WBC (Bld) 0.3 % [facility] Interpretation and review of laboratory results Abnormal [facility] Lymphocytes (Bld) [#/Vol] 0.64 10*3/uL Low [facility] Lymphocytes/100 WBC (Bld) 10.3 % [facility] MCH (RBC) [Entitic mass] 30.7 pg 26.0 - 34.0 pg [facility] MCHC (RBC) [Mass/Vol] 31.7 g/dL 30.5 - 36.0 g/dL [facility] MCV (RBC) [Entitic vol] 96.8 fL 80.0 - 100.0 fL [facility] Monocytes (Bld) [#/Vol] 0.66 10*3/uL NINF [facility] Monocytes/100 WBC (Bld) 10.6 % [facility] Neutrophils (Bld) [#/Vol] 4.78 10*3/uL [facility] Neutrophils/100 WBC (Bld) 76.6 % [facility] Nucleated RBC (Bld) [#/Vol] NINF [facility] Nucleated RBC/100 WBC (Bld) [Ratio] 0 % /100 WBC [facility] Platelet mean volume (Bld) [Entitic vol] 9.9 fL 9.0 - 12.7 fL [facility] Platelets (Bld) [#/Vol] 115 10*3/uL Low [facility] Comment on above: No clot detected. RBC (Bld) [#/Vol] 3.42 10*6/uL Low 4.20 - 6.0 0 m/uL [facility] WBC (Bld) [#/Vol] 6.24 10*3/uL [facility] Basophils (Bld) [#/Vol] 10*3/uL Normal <0.11 [facility] Comment on above: Order Comment: Speci men Type: BLOOD SPECIMENOrdering Facility: [facility] Address: [address] [place] [address] Performed By: #### 5 7021-8 ####[facility] LABORATORYCLIA [id number] [place] [address] [place] Basophils/100 WBC (Bld) 0.3 % Normal [facility] Comment on above: Order Comment: Speci men Type: BLOOD SPECIMENOrdering Facility: [facility] Address: [address] [place] [address] Performed By: #### 5 7021-8 ####ADAM LABORATORYCLIA [id number] [address] [place] Differential cell count method Nom (Bld) Auto Normal [facility] Comment on above: Order Comment: Speci men Type: BLOOD SPECIMENOrdering Facility: [facility] Address: [address] [place] [address] Performed By: #### 5 7021-8 ####ADAM LABORATORYCLIA [id number] [place] [address] [place] Eosinophils (Bld) [#/Vol] 0.12 10*3/uL Normal <0.46 [facility] Comment on above: Order Comment: Speci men Type: BLOOD SPECIMENOrdering Facility: [facility] Address: [address] [place] [address] Performed By: #### 5 7021-8 ####ADAM LABORATORYCLIA [id number] [place] [address] [place] Eosinophils/100 WBC (Bld) 1.9 % Normal [facility] Comment on above: Order Comment: Speci men Type: BLOOD SPECIMENOrdering Facility: [facility] Address: [address] [place] [address] Performed By: #### 5 7021-8 ####ADAM LABORATORYCLIA [id number] [address] [place] Erythrocyte distribution width (RBC) [Ratio] 16.4 % High 11.5-15.0 [facility] Comment on above: Order Comment: Speci men Type: BLOOD SPECIMENOrdering Facility: [facility] Address: [address] [place] [address] Performed By: #### 5 7021-8 ####ADAM LABORATORYCLIA [id number] [address] [place] Hematocrit (Bld) [Volume fraction] 33.1 % Low 39.0-51.0 [facility] Comment on above: Order Comment: Speci men Type: BLOOD SPECIMENOrdering Facility: [facility] Address: [address] [place] [address] Performed By: #### 5 7021-8 ####AD[facility] LABORATORYCLIA [id number] [place] [address] [place] Hemoglobin (Bld) [Mass/Vol] 10.5 g/dL Low 13.0-17.0 [facility] Comment on above: Order Comment: Speci men Type: BLOOD SPECIMENOrdering Facility: [facility] Address: [address] [place] [address] Performed By: #### 5 7021-8 ####ADAM LABORATORYCLIA [id number] [place] [address] [place] Immature granulocytes (Bld) [#/Vol] 10*3/uL Normal <0.10 [facility] Comment on above: Order Comment: Speci men Type: BLOOD SPECIMENOrdering Facility: [facility] Address: [address] [place] [address] Performed By: #### 5 7021-8 ####ADAM LABORATORYCLIA [id number] [place] [address] [place] Immature granulocytes/100 WBC (Bld) 0.3 % Normal [facility] Comment on above: Order Comment: Speci men Type: BLOOD SPECIMENOrdering Facility: [facility] Address: [address] [place] [address] Performed By: #### 5 7021-8 ####ADAM LABORATORYCLIA [id number] [place] [address] [place] Lymphocytes (Bld) [#/Vol] 0.64 10*3/uL Low 1.00-4.00 [facility] Comment on above: Order Comment: Speci men Type: BLOOD SPECIMENOrdering Facility: [facility] Address: [address] [place] [address] Performed By: #### 5 7021-8 ####ADAM LABORATORYCLIA [id number] [address] [place] Lymphocytes/100 WBC (Bld) 10.3 % Normal [facility] Comment on above: Order Comment: Speci men Type: BLOOD SPECIMENOrdering Facility: [facility] Address: [address] [place] [address] Performed By: #### 5 7021-8 ####ADAM LABORATORYCLIA [id number] [address] MCH (RBC) [Entitic mass] 30.7 pg Normal 26.0-34.0 [facility] Comment on above: Order Comment: Speci men Type: BLOOD SPECIMENOrdering Facility: [facility] Address: [address] [place] [address] Performed By: #### 5 7021-8 ####ADAM LABORATORYCLIA [id number] [address] STATES [place] MCHC (RBC) [Mass/Vol] 31.7 g/dL Normal 30.5-36.0 [facility] Comment on above: Order Comment: Speci men Type: BLOOD SPECIMENOrdering Facility: [facility] Address: [address] [place] [address] Performed By: #### 5 7021-8 ####ADAM LABORATORYCLIA [id number] [address] MCV (RBC) [Entitic vol] 96.8 fL Normal 80.0-100.0 [facility] Comment on above: Order Comment: Speci men Type: BLOOD SPECIMENOrdering Facility: [facility] Address: [address] [place] [address] Performed By: #### 5 7021-8 ####ADAM LABORATORYCLIA [id number] [address] Monocytes (Bld) [#/Vol] 0.66 10*3/uL Normal <0.87 [facility] Comment on above: Order Comment: Speci men Type: BLOOD SPECIMENOrdering Facility: [facility] Address: [address] [place] [address] Performed By: #### 5 7021-8 ####ADAM LABORATORYCLIA [id number] [address] Monocytes/100 WBC (Bld) 10.6 % Normal [facility] Comment on above: Order Comment: Speci men Type: BLOOD SPECIMENOrdering Facility: [facility] Address: [address] [place] [address] Performed By: #### 5 7021-8 ####ADAM LABORATORYCLIA [id number] [place] [address] [place] Neutrophils (Bld) [#/Vol] 4.78 10*3/uL Normal 1.45-7.50 [facility] Comment on above: Order Comment: Speci men Type: BLOOD SPECIMENOrdering Facility: [facility] Address: [address] [place] [address] Performed By: #### 5 7021-8 ####AD[facility] LABORATORYCLIA [id number] [place] [address] [place] Neutrophils/100 WBC (Bld) 76.6 % Normal [facility] Comment on above: Order Comment: Speci men Type: BLOOD SPECIMENOrdering Facility: [facility] Address: [address] [place] [address] Performed By: #### 5 7021-8 ####AADM LABORATORYCLIA [id number] [place] [address] [place] Nucleated RBC (Bld) [#/Vol] 10*3/uL Normal <0.01 [facility] Comment on above: Order Comment: Speci men Type: BLOOD SPECIMENOrdering Facility: [facility] Address: [address] [place] [address] Performed By: #### 5 7021-8 ####AD[facility] LABORATORYCLIA [id number] [place] [address] [place] Nucleated RBC/100 WBC (Bld) [Ratio] 0.0 /100 WBC Normal [facility] Comment on above: Order Comment: Speci men Type: BLOOD SPECIMENOrdering Facility: [facility] Address: [address] [place] [address] Performed By: #### 5 7021-8 ####AD[facility] LABORATORYCLIA [id number] [place] [address] [place] Platelet mean volume (Bld) [Entitic vol] 9.9 fL Normal 9.0-12.7 [facility] Comment on above: Order Comment: Speci men Type: BLOOD SPECIMENOrdering Facility: [facility] Address: [address] [place] [address] Performed By: #### 5 7021-8 ####ADAM LABORATORYCLIA [id number] [address] Platelets (Bld) [#/Vol] 115 10*3/uL Low 150-400 [facility] [facility] Comment on above: Order Comment: Speci men Type: BLOOD SPECIMENOrdering Facility: [facility] Address: [address] [place] [address] Result Comment: No c lot detected. Performed By: #### 5 7021-8 ####ADAM LABORATORYCLIA [id number] [address] OF [facility] RBC (Bld) [#/Vol] 3.42 10*6/uL Low 4.20-6.00 [facility] Comment on above: Order Comment: Speci men Type: BLOOD SPECIMENOrdering Facility: [facility] Address: [address] [place] [address] Performed By: #### 5 7021-8 ####ADAM LABORATORYCLIA [id number] [address] WBC (Bld) [#/Vol] 6.24 10*3/uL Normal 3.70-11.00 [facility] Comment on above: Order Comment: Speci men Type: BLOOD SPECIMENOrdering Facility: [facility] Address: [address] [place] [address] Performed By: #### 5 7021-8 ####ADAM LABORATORYCLIA [id number] [address] CNOVon 11-14-2024 CNOV Office Visit (ORMDNA ) -- MAURI QUINONES ([id number]) 1955 M Date Time Provider Department 11/14/24 [...] systolic and diastolic CHF (congestive heart failure) ([facility]) 03/24/2019 CKD (chronic kidney disease) stage 3, GFR 30-59 ml/min ([facility]) 03/24/2019 Constipation Diabetes ([facility]) Gout High phosphate levels 03/24/2019 History of [...] NSTEMI (non-ST elevated myocardial infarction) (HCC) 03/12/2017 [facility] admit Osteoarthritis Transition of care performed with sharing of clinical summary 04/08/2019 Admit [facility] 03/21/19-03/22/19 Discharge diagnoses chronic kidney disease with worsening creatinine, acute kidney injury Hypokalemia Toxic encephalopathy secondary to Flexeril overusage Type 2 diabetes Ischemic cardiomyopathy Coronary artery disease Ligamental cervical neck strain and acute Pulmonary hypertension Hypertension Pyuria Preadmit: to [facility] ED with slurred speech, lethargy. PAST [...] diagnosis includes (more content not included)... Normal [facility] CRP SerPl-mCncon 11-14-2024 CRP [Mass/Vol] 1.8 mg/dL High <0.9 [facility] Comment on above: Order Comment: Kelsi huff Type: BLOOD SPECIMENOrdering Facility: [facility] Address: [address] [place] [address] Performed By: #### 1 988-5 ####ARBYRD LABORATORYCLIA [id number] [place] [address] [place] CRP [Mass/Vol]on 11-14-2024 Interpretation and review of laboratory results Abnormal [facility] ESR Westergren method (Bld) [Velocity]on 11-14-2024 ESR (Bld) [Velocity] 2 mm/h [facility] Interpretation and review of laboratory results Normal [facility] ESR (Bld) [Velocity] 2 mm/h Normal 0-15 [facility] Comment on above: Order Comment: Specmarcellus huff Type: BLOOD SPECIMENOrdering Facility: [facility] Address: [address] [place] [address] Performed By: #### 4 537-7 ####[facility] LABCLIA [id number] [address] [place] XR FEMUR 2V [...] Extensive vascular calcifications. IMPRESSION: No acute abnormality Military Personnel Specialist: CARMELA Transcribe Date/Time: Nov 16 2024 8:07A Dictated by : SONG DE LA GARZA MD This examination was interpreted and the report reviewed and electronically signed by: SONG DE LA GARZA MD on Nov 16 2024 8:09AM EST [id number] [facility] 11-10-2024 CNPN Telephone (ORMDNA) -- MAURI QUINONES Farhana ([id number]) 1955 M Date Time Provider Department 11/10/24 [...] tablet by mouth every morning. - Insulin Winthrop, Disposable, (BD ULTRA-FINE GOLDY PEN NEEDLE) 32 [...] disease) kaitlynn (more content not included)... Normal [facility] Aniket 11-09-2024 CNPN Telephone (MEPRAD) -- MAURI QUINONES ([id number]) 1955 M Date Time Provider Department 11/09/24 [...] tablet by mouth every morning. - Insulin Winthrop, Disposable, (BD ULTRA-FINE GOLDY PEN NEEDLE) 32 [...] [Z01.818] 04/20/2023 (more content not included)... Normal [facility] Cardiology Visit Reporton Cardiology Visit Report [facility] [address] [place] [address] OFFICE VISIT Date of Service: 10/28/24 MR#: [id number] Acct: [id number] Name: MAURI QUINONES Rep #: [id number] : 1955 Provider: Dr. Jensen karimi MD Age/Sex: 68/M Location: [facility] Status: Signed HPI HPI History of Present Illness Details: Patient is a 68-year-old white male that comes in his today for monitoring of his cardiovascular status. He has known history of coronary disease status post bypass graft surgery at [facility] March 2017. 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 Normal [facility] -- MAURI QUINONES ([id number]) 1955 M Date Time Provider Department 10/17/24 [...] Acute on chronic diastolic congestive heart failure ([facility]) 07/14/2018 GARRET (acute kidney injury) ([facility]) 03/24/2019 GARRET (acute kidney injury) ([facility]) 03/24/2019 Ankylosing spondylitis ([facility]) CAD (coronary artery disease) Cellulitis Chronic combined systolic and diastolic CHF (congestive heart failure) ([facility]) 03/24/2019 CKD (chronic kidney disease) stage 3, GFR 30-59 ml/min ([facility]) 03/24/2019 Constipation Diabetes ([facility]) Gout High phosphate levels 03/24/2019 History of [...] NSTEMI (non-ST elevated myocardial infarction) (HCC) 03/12/2017 [facility] admit Osteoarthritis Transition of care performed with sharing of clinical summary 04/08/2019 Admit [facility] 03/21/19-03/22/19 Discharge diagnoses chronic kidney disease with worsening creatinine, acute kidney injury Hypokalemia Toxic encephalopathy secondary to Flexeril overusage Type 2 diabetes Ischemic cardiomyopathy Coronary artery disease Ligamental cervical neck strain and acute Pulmonary hypertension Hypertension Pyuria Preadmit: to [facility] ED with slurred speech, lethargy. PAST [...] we contin (more content not included)... Normal [facility] Aniket 10-08-2024 [place] Telephone (FAMPWS) -- MAURI QUINONES ([id number]) 1955 M Date Time Provider Department 10/08/24 ALEXUS MENDEZ During your visit today, we recorded the following information about you: Alicia Cantu LPN 10/08/2024 4:49 PM Signed [facility] sends fax stating that Ammonium lactate lotion should be changed to cream. Called to [facility] and left message to call and speak with nurse. Was patient able to garbage pick up man prescription of do they in fact need [...] October 08, 2024 6:05 PM Alexus Mendez APRN.[facility] 10/09/2024 8:00 AM Signed Creme was ordered. [...] tablet by mouth every morning. - Insulin Winthrop, Disposable, (BD ULTRA-FINE GOLDY PEN NEEDLE) 32 [...] kidney disease) (more content not included)... Normal [facility] CNOVon 10-07-2024 CNOV Office Visit (FAMPWS ) -- MAURI QUINONES ([id number]) 1955 M Date Time Provider Department 10/07/24 2:40 PM ALEXUS MENDEZ During your visit today, we recorded the following information about you: Pulse Respiration Blood pressure Weight 78/minute 16/minute 116/64 77.1 kg Alexus Mendez, [place].ANGIOGRAPHER 10/07/2024 3:14 PM Signed This is a [...] Acute on chronic diastolic congestive heart failure ([facility]) 07/14/2018 GARRET (acute kidney injury) ([facility]) 03/24/2019 GARRET (acute kidney injury) ([facility]) 03/24/2019 Ankylosing spondylitis ([facility]) CAD (coronary artery disease) Cellulitis Chronic combined systolic and diastolic CHF (congestive heart failure) ([facility]) 03/24/2019 CKD (chronic kidney disease) stage 3, GFR 30-59 ml/min ([facility]) 03/24/2019 Constipation Diabetes ([facility]) Gout High phosphate levels 03/24/2019 History of [...] valve calcifi NSTEMI (non-ST elevated myocardial infarction) ([facility]) 03/12/2017 [facility] admit Osteoarthritis Transition of care performed with sharing of clinical summary 04/08/2019 Admit [facility] 03/21/19-03/22/19 Discharge diagnoses chronic kidney disease with worsening creatinine, acute kidney injury Hypokalemia Toxic encephalopathy secondary to Flexeril overusage Type 2 diabetes Ischemic cardiomyopathy Coronary artery disease Ligamental cervical neck strain and acute Pulmonary hypertension Hypertension Pyuria Preadmit: to [facility] ED with slurred speech, lethargy. PAST [...] 1 tablet by mouth every morning. Insulin Winthrop, Disposable, (BD ULTRA-FINE GOLDY PEN NEEDLE) 32 [...] Use Sm (more content not included)... Normal [facility]-20[facility] -- MAURI QUINONES ([id number]) 1955 M Date Time Provider Department 10/06/24 [...] seen in office dewayne. And states de al rosa said by wed- dr de la [...] Date Reviewed: 09/04/2024 Reviewed by: Alexus Mendez APRN.ANGIOGRAPHER - Fully Assessed Reason for Visit: Appointment [...] tablet by mouth every morning. - Insulin Winthrop, Disposable, (BD ULTRA-FINE GOLDY PEN NEEDLE) 32 [...] IV (rodger (more content not included)... Normal [facility] CNOVon 09-22-2024 CNOV Office Visit (ORMDNA ) -- MAURI QUINONES ([id number]) 1955 M Date Time Provider Department 09/22/24 [...] Complication, With Long-Term Current Use of Insulin (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) Pvd (Peripheral Vascular Disease) ([facility]) Chronic Combined Systolic and Diastolic Chf (Congestive Heart Failure) (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) Osteopenia, Senile Other Fracture of Right Femur, Initial Encounter for Closed Fracture ([facility]) Blood Loss Anemia Johny (Obstructive Sleep Apnea) Thoracic Compression Fracture, Closed, Initial Encounter ([facility]) Esrd (End Stage Renal Disease) On Dialysis ([facility]) Fracture, Femur, Supracondylar, Right, Open Type I Or II, Initial Encounter ([facility]) Abnormal Ekg Chronic Kidney Disease (Ckd), Stage V ([facility]) Hx of Cabg Preoperative Examination PAST MEDICAL HISTORY Diagnosis Date Acute on chronic diastolic congestive heart failure ([facility]) 07/14/2018 GARRET (acute kidney injury) ([facility]) 03/24/2019 GARRET (acute kidney injury) ([facility]) 03/24/2019 Ankylosing spondylitis ([facility]) CAD (coronary artery disease) Cellulitis Chronic combined systolic and diastolic CHF (congestive heart failure) ([facility]) 03/24/2019 CKD (chronic kidney disease) stage 3, GFR 30-59 ml/min ([facility]) 03/24/2019 Constipation Diabetes ([facility]) Gout High phosphate levels 03/24/2019 History of [...] NSTEMI (non-ST elevated myocardial infarction) (HCC) 03/12/2017 [facility] admit Osteoarthritis Transition of care performed with sharing of clinical summary 04/08/2019 Admit [facility] 03/21/19-03/22/19 Discharge diagnoses chronic kidney disease with worsening creatinine, acute kidney injury Hypokalemia Toxic encephalopathy secondary to Flexeril overusage Type 2 diabetes Ischemic cardiomyopathy Coronary artery disease Ligamental cervical neck strain and acute Pulmonary hypertension Hypertension Pyuria Preadmit: to [facility] ED with slurred speech, lethargy. PAST SURGICAL HISTORY Procedure Laterality Date ARTHRP ACETBLR/PROX FEM PROSTC AGRFT/ALGRFT Right 2018 Dr Peguero CORONARY ARTERY BYPASS GRAFT 04/12/2017 x 3 FEMUR RIGHT OP SURGERY Right Repair of fracture with hardward HIP SURGERY HX Right pin KNEE ARTHROSCOPY Left x2 KNEE YUMIKO (more content not included)... Normal [facility] XR FEMUR 2V AP/LAT RTon 08-28 XR FEMUR 2V AP/LAT RT * * *Final Report* * * DATE OF EXAM: Sep 22 2024 1:56PM LIUDMILA 5333 - XR FEMUR 2V AP/LAT RT / PROCEDURE REASON: multiple diagnoses * * * * Physician Interpretation * * * * PROCEDURE: Pelvis and right femur INDICATION: Pain in right hip .right hip pain (accession [id number]), acute pain right knee (accession [id number]) TECHNIQUE: XR PELVIS 1V AP, XR FEMUR [...] the knee. 2. Healing distal femoral fracture Military Personnel Specialist: [facility] Transcribe Date/Time: Sep 24 2024 7:14A Dictated by : SONG DE LA GARZA MD This examination was interpreted and the report reviewed and electronically signed by: SONG DE LA GARZA MD on Sep 24 2024 7:19AM EST [id number] [facility] LA [facility] XR PELVIS 1V APon 09-22-2024 XR PELVIS 1V AP * * *Final Report* * * DATE OF EXAM: Sep 22 2024 1:56PM LIUDMILA 5239 - XR PELVIS 1V AP / PROCEDURE REASON: [id number] in right hip * * * * Physician Interpretation * * * * PROCEDURE: Pelvis and right femur INDICATION: Pain in right hip .right hip pain (accession [id number]), acute pain right knee (accession [id number]) TECHNIQUE: XR PELVIS 1V AP, XR FEMUR [...] the knee. 2. Healing distal femoral fracture Military Personnel Specialist: [facility] Transcribe Date/Time: Sep 24 2024 7:14A Dictated by : SONG DE LA GARZA MD This examination was interpreted and the report reviewed and electronically signed by: SONG DE LA GARZA MD on Sep 24 2024 7:19AM EST [id number] [facility]ALTH [facility] CNOVon 09-04-2024 [facility]OV [facility] -- MAURI QUIN[facility]ES ([id number]) 1955 M Date Time Provider Department 09/04/24 8:00 AM ALEXUS MENDEZWS During your visit today, we recorded the following information about you: Temperature Pulse Blood pressure 97 degrees 91/minute 122/60 Alexus Mendez, LIQUIFIED NATURAL GAS SPECIALIST.ANGIOGRAPHER 09/04/2024 8:32 AM Addendum This is a [...] Acute on chronic diastolic congestive heart failure ([facility]) 07/14/2018 GARRET (acute kidney injury) ([facility]) 03/24/2019 GARRET (acute kidney injury) ([facility]) 03/24/2019 Ankylosing spondylitis ([facility]) CAD (coronary artery disease) Cellulitis Chronic combined systolic and diastolic CHF (congestive heart failure) ([facility]) 03/24/2019 CKD (chronic kidney disease) stage 3, GFR 30-59 ml/min ([facility]) 03/24/2019 Constipation Diabetes ([facility]) Gout High phosphate levels 03/24/2019 History of [...] NSTEMI (non-ST elevated myocardial infarction) (HCC) 03/12/2017 [facility] admit Osteoarthritis Transition of care performed with sharing of clinical summary 04/08/2019 Admit [facility] 03/21/19-03/22/19 Discharge diagnoses chronic kidney disease with worsening creatinine, acute kidney injury Hypokalemia Toxic encephalopathy secondary to Flexeril overusage Type 2 diabetes Ischemic cardiomyopathy Coronary artery disease Ligamental cervical neck strain and acute Pulmonary hypertension Hypertension Pyuria Preadmit: to [facility] ED with slurred speech, lethargy. PAST [...] 1 tablet by mouth every morning. Insulin Winthrop, Disposable, (BD ULTRA-FINE GOLDY PEN NEEDLE) 32 [...] ophthalmic solution (more content not included)... Normal [facility] Aniket 09-03-2024 [facility] Telephone ([place]) -- MAURI QUINONES ([id number]) 1955 M Date Time Provider Department 09/03/24 [...] Date Reviewed: 06/30/2024 Reviewed by: Alexus Mendez APRN.ANGIOGRAPHER - Fully Assessed Reason for Visit: Patient Update [1234] Prescriptions as of 09/03/2024 - Tadalafil (CIALIS) 20 mg tablet Take 1 tablet by mouth once daily as needed. Do not take at same time as doxazosin - pantoprazole DR (PROTONIX) 40 mg tablet Take 1 tablet by mouth every morning. - Insulin Winthrop, Disposable, (BD ULTRA-FINE GOLDY PEN NEEDLE) 32 [...] of trans*02 (more content not included)... [facility] -- MAURI QUINONES ([id number]) 1955 M Date Time Provider Department 09/01/24 [facility]O [place] During your visit today, we recorded the [...] PM Signed Sent message to Pt in EveryMovesan antonio as he asked. Allergies As of Date: 09/01/2024 Noted Allergy Reaction LYRICA (PREGABALIN) 03/23/2017 7 - Swelling Date Reviewed: 06/30/2024 Reviewed by: Alexus Mendez APRN.ANGIOGRAPHER - Fully Assessed Reason for Visit: Patient Update [7764] Patient Question [7878] Prescriptions as of 09/01/2024 - Tadalafil (CIALIS) 20 mg tablet Take 1 tablet by mouth once daily as needed. Do not take at same time as doxazosin - pantoprazole DR (PROTONIX) 40 mg tablet Take 1 tablet by mouth every morning. - Insulin Winthrop, Disposable, (BD ULTRA-FINE GOLDY PEN NEEDLE) 32 [...] ventricular tachycardi (more content not included)... Normal [facility] CNPNon 08-25-2024 CNPN Telephone (ORMDNA) -- MAURI QUINONES ([id number]) 1955 M Date Time Provider Department 08/25/24 [...] Date Reviewed: 06/30/2024 Reviewed by: Alexus Mendez APRN.ANGIOGRAPHER - Fully Assessed Reason for Visit: Appointment [186] Prescriptions as of 08/28/2024 - Tadalafil (CIALIS) 20 mg tablet Take 1 tablet by mouth once daily as needed. Do not take at same time as doxazosin - pantoprazole DR (PROTONIX) 40 mg tablet Take 1 tablet by mouth every morning. - Insulin Winthrop, Disposable, (BD ULTRA-FINE GOLDY PEN NEEDLE) 32 [...] Fracture, femur (more content not included)... Normal [facility] 07-15-2024 [facility] MAURI QUINONES ([id number]) 1955 M Date Time Provider Department 07/15/24 [facility] MENDEZ [facility] During your visit today, we recorded the following information about you: Alexus Mendez APRN.ANGIOGRAPHER 07/15/2024 12:48 PM Signed Lab work from [...] Date Reviewed: 06/30/2024 Reviewed by: Alexus Mendez APRN.ANGIOGRAPHER - Fully Assessed Prescriptions as of 07/15/2024 - Tadalafil (CIALIS) 20 mg tablet Take 1 tablet by mouth once daily as needed. Do not take at same time as doxazosin - pantoprazole DR (PROTONIX) 40 mg tablet Take 1 tablet by mouth every morning. - Insulin Winthrop, Disposable, (BD ULTRA-FINE GOLDY PEN NEEDLE) 32 [...] (upper gastrointestin (more content not included)... Normal [facility] CNOVon 06-30-2024 CNOV Office Visit (FAMPWS ) -- MAURI QUINONES ([id number]) 1955 M Date Time Provider Department 06/30/24 12:40 PM ALEXUS MENDEZ FAMPWS During your visit today, we recorded the following information about you: Pulse Respiration Blood pressure Weight 60/minute 16/minute 118/62 77.6 kg Alexus Mendez, LIQUIFIED NATURAL GAS SPECIALIST.ANGIOGRAPHER 06/30/2024 1:21 PM Signed This is a [...] Acute on chronic diastolic congestive heart failure ([facility]) 07/14/2018 GARRET (acute kidney injury) ([facility]) 03/24/2019 GARRET (acute kidney injury) ([facility]) 03/24/2019 Ankylosing spondylitis ([facility]) CAD (coronary artery disease) Cellulitis Chronic combined systolic and diastolic CHF (congestive heart failure) ([facility]) 03/24/2019 CKD (chronic kidney disease) stage 3, GFR 30-59 ml/min ([facility]) 03/24/2019 Constipation Diabetes ([facility]) Gout High phosphate levels 03/24/2019 History of [...] valve calcifi NSTEMI (non-ST elevated myocardial infarction) ([facility]) 03/12/2017 [facility] admit Osteoarthritis Transition of care performed with sharing of clinical summary 04/08/2019 Admit [facility] 03/21/19-03/22/19 Discharge diagnoses chronic kidney disease with worsening creatinine, acute kidney injury Hypokalemia Toxic encephalopathy secondary to Flexeril overusage Type 2 diabetes Ischemic cardiomyopathy Coronary artery disease Ligamental cervical neck strain and acute Pulmonary hypertension Hypertension Pyuria Preadmit: to [facility] ED with slurred speech, lethargy. PAST [...] Social Histo (more content not included)... [facility] Tele[facility] (FAMWS) -- MAURI QUINONES ([id number]) 1955 M Date Time Provider Department 06/30/24 [facility]EN[facility] During your visit today, we recorded the following information about you: Garrison Olmedo MA 06/30/2024 5:24 PM Signed Fax received from [facility] that Lantus Solostar is not covered and [...] provider sent in prescription for Cialis to [facility]? Please review and advise, Farrah Hastings RN Allergies As of Date: 06/30/2024 Noted Allergy Reaction LYRICA (PREGABALIN) 03/23/2017 7 - Swelling Date Reviewed: 06/30/2024 Reviewed by: Alexus Mendez APRN.[facility] - Fully Assessed Reason for Visit: Medication [...] tablet by mouth every morning. - Insulin Winthrop, Disposable, (BD ULTRA-FINE GOLDY PEN NEEDLE) 32 [...] of mode (more content not included)... Normal [facility] CNOVon 06-25-2024 CNOV Office Visit (ORMDNA ) -- MAURI QUINONES ([id number]) 1955 M Date Time Provider Department 06/25/24 [...] Acute on chronic diastolic congestive heart failure ([facility]) 07/14/2018 GARRET (acute kidney injury) ([facility]) 03/24/2019 GARRET (acute kidney injury) ([facility]) 03/24/2019 Ankylosing spondylitis ([facility]) CAD (coronary artery disease) Cellulitis Chronic combined systolic and diastolic CHF (congestive heart failure) ([facility]) 03/24/2019 CKD (chronic kidney disease) stage 3, GFR 30-59 ml/min ([facility]) 03/24/2019 Constipation Diabetes ([facility]) Gout High phosphate levels 03/24/2019 History of [...] valve calcifi NSTEMI (non-ST elevated myocardial infarction) ([facility]) 03/12/2017 [facility] admit Osteoarthritis Transition of care performed with sharing of clinical summary 04/08/2019 Admit [facility] 03/21/19-03/22/19 Discharge diagnoses chronic kidney disease with worsening creatinine, acute kidney injury Hypokalemia Toxic encephalopathy secondary to Flexeril overusage Type 2 diabetes Ischemic cardiomyopathy Coronary artery disease Ligamental cervical neck strain and acute Pulmonary hypertension Hypertension Pyuria Preadmit: to [facility] ED with slurred speech, lethargy. PAST [...] ANKLE 3V AP/LAT/OBL RT / PROCEDURE REASON: [id number] * * * * Physician Interpretation * [...] anterior h (more content not included)... Normal [facility] XR ANKLE 3V AP/LAT/OBL RTon 06-25-2024 XR ANKLE 3V AP/LAT/OBL RT * * *Final Report* * * DATE OF EXAM: Jun 25 2024 11:26AM LIUDMILA 5297 - XR ANKLE 3V AP/LAT/OBL RT / PROCEDURE REASON: [id number] * * * * Physician Interpretation * [...] similar in appearance to the previous study Military Personnel Specialist[facility] Transcribe Date/Time: Jun 26 2024 10:30A Dictated by : OSMAN JORDAN DO This examination was interpreted and the report reviewed and electronically signed by: OSMAN JORDAN DO on Jun 26 2024 10:31AM EST [id number] [facility] CNOVon 05-19-2024 CNOV Office Visit (ORMDNA ) -- MAURI QUINONES ([id number]) 1955 M Date Time Provider Department 05/19/24 [...] Acute on chronic diastolic congestive heart failure ([facility]) 07/14/2018 GARRET (acute kidney injury) ([facility]) 03/24/2019 GARRET (acute kidney injury) ([facility]) 03/24/2019 Ankylosing spondylitis ([facility]) CAD (coronary artery disease) Cellulitis Chronic combined systolic and diastolic CHF (congestive heart failure) ([facility]) 03/24/2019 CKD (chronic kidney disease) stage 3, GFR 30-59 ml/min ([facility]) 03/24/2019 Constipation Diabetes ([facility]) Gout High phosphate levels 03/24/2019 History of [...] NSTEMI (non-ST elevated myocardial infarction) (HCC) 03/12/2017 [facility] admit Osteoarthritis Transition of care performed with sharing of clinical summary 04/08/2019 Admit [facility] 03/21/19-03/22/19 Discharge diagnoses chronic kidney disease with worsening creatinine, acute kidney injury Hypokalemia Toxic encephalopathy secondary to Flexeril overusage Type 2 diabetes Ischemic cardiomyopathy Coronary artery disease Ligamental cervical neck strain and acute Pulmonary hypertension Hypertension Pyuria Preadmit: to [facility] ED with slurred speech, lethargy. PAST [...] La Rosa M.D. Department of Orthopaedic Surgery [facility] Allergies As of Date: 05/19/2024 Noted Allergy Reaction LYRICA (PREGABALIN) 03/23/2017 7 - Swelling Date Review (more content not included)... Normal [facility] XR Ankle - right AP and Late ral and obliqueon 05-10-2024 IMPRESSION: Navicula r stress fracture. Military Personnel Specialist: PSCB Transcribe Date/Time: May 10 2024 3:02P Dictated by : SONG DE LA GARZA MD This examination was interpreted and the report reviewed and electronically signed by: SONG DE LA GARZA MD on May 10 2024 3:17PM [facility] * * *Final Report* * * [...] swelling and advanced vascular calcifications again noted. [facility] Provider, Phyllis Camp - 05/10/2024 * [...] again noted. IMPRESSION IMPRESSION: Navicular stress fracture. Military Personnel Specialist: PSCB Transcribe Date/Time: May 10 2024 3:02P Dictated by : SONG DE LA GARZA MD This examination was interpreted and the report reviewed and electronically signed by: SONG DE LA GARZA MD on May 10 2024 3:17PM EST [facility] XR Ankle - right AP and Late ral and obliqueOrdered By: Ccf Provider on 05-10-2024 [facility] CNOVon 05-07-2024 CNOV Office Visit (ORMDNA ) -- MAURI QUINONES ([id number]) 1955 M Date Time Provider Department 05/07/24 [...] again noted. Impression: IMPRESSION: Navicular stress fracture. Military Personnel Specialist: CARMELA Transcribe Date/Time: May 10 2024 3:02P [...] [M84.374A] Order(s):XR ANKLE GENERAL 3V AP/LAT/OBL RIGHT [[id number]] Order #: [id number] FUTURE Prescriptions as of 06/04/2024 - loratadine [...] by mouth (more content not included)... Normal [facility] XR ANKLE 3V AP/LAT/OBL RTon 05-07-2024 [...] calcifications again noted. IMPRESSION: Navicular stress fracture. Military Personnel Specialist: CARMELA Transcribe Date/Time: May 10 2024 3:02P Dictated by : SONG DE LA GARZA MD This examination was interpreted and the report reviewed and electronically signed by: SONG DE LA GARZA MD on May 10 2024 3:17PM EST [id number] [facility] XR Ankle - right AP and Late ral and obliqueon 05-07-2024 Radiology Study observation (narrative) [facility] Aniket 04-15-2024 CNPN Telephone (ORMDNA) -- MAURI QUINONES ([id number]) 1955 M Date Time Provider Department 04/15/24 [...] [E83.39] 03/24 (more content not included)... Normal [facility] XR Knee - right AP and Later al and obliqueon 04-05-2024 IMPRESSION: No acute abnormality Military Personnel Specialist: CARMELA Transcribe Date/Time: Apr 05 2024 4:22P Dictated by : SONG DE LA GARZA MD This examination was interpreted and the report reviewed and electronically signed by: SONG DE LA GARZA MD on Apr 05 2024 4:24PM [facility] * * *Final Report* * * [...] again noted. Advanced vascular calcifications are noted. [facility] Provider, Phyllis Camp - 04/05/2024 * [...] are noted. IMPRESSION IMPRESSION: No acute abnormality Military Personnel Specialist: PSCB Transcribe Date/Time: Apr 05 2024 4:22P Dictated by : SONG DE LA GARZA MD This examination was interpreted and the report reviewed and electronically signed by: SONG DE LA GARZA MD on Apr 05 2024 4:24PM EST [facility] XR Knee - right AP and Later al and obliqueOrdered By: Ccf Provider on 04-05-2024 [facility] CNOVon 04-02-2024 CNOV Office Visit (ORMDNA ) -- MAURI QUINONES ([id number]) 1955 M Date Time Provider Department 04/02/24 [...] are noted. Impression: IMPRESSION: No acute abnormality Military Personnel Specialist: [facility] Transcribe Date/Time: Apr 05 2024 4:22P Dictated [...] MD Referring Provider: NUPUR DE LA ROSA [[id number]] Allergies As of Date: 04/02/2024 Noted Allergy [...] by: SPOUSE (more content not included)... Normal [facility] XR KNEE 4V AP/LAT/OBLS RTon 04-02-2024 [...] calcifications are noted. IMPRESSION: No acute abnormality Military Personnel Specialist: PSCB Transcribe Date/Time: Apr 05 2024 4:22P Dictated by : SONG DE LA GARZA MD This examination was interpreted and the report reviewed and electronically signed by: SONG DE LA GARZA MD on Apr 05 2024 4:24PM EST [id number] [facility] XR Knee - right AP and Later al and obliqueon 04-02-2024 Radiology Study observation (narrative) [facility] CNOVon 03-27-2024 CNOV Office Visit (FAMPWS ) -- MAURI QUINONES ([id number]) 1955 M Date Time Provider Department 03/27/24 12:40 PM ALEXUS MENDEZ FAMPWS During your visit today, we recorded the following information about you: Pulse Blood pressure 66/minute 158/82 Alexus Mendez, LIQUIFIED NATURAL GAS SPECIALIST.ANGIOGRAPHER 03/27/2024 1:02 PM Signed This is a [...] Acute on chronic diastolic congestive heart failure ([facility]) 03/24/2019: GARRET (acute kidney injury) ([facility]) 03/24/2019: GARRET (acute kidney injury) ([facility]) No date: Ankylosing spondylitis ([facility]) No date: CAD (coronary artery disease) No date: Cellulitis 03/24/2019: Chronic combined systolic and diastolic CHF (congestive heart failure) ([facility]) 03/24/2019: CKD (chronic kidney disease) stage 3, GFR 30-59 ml/min ([facility]) No date: Constipation No date: Diabetes ([facility]) No date: Gout 03/24/2019: High phosphate levels [...] calcifi 03/12/2017: NSTEMI (non-ST elevated myocardial infarction) ([facility]) Comment: [facility] admit No date: Osteoarthritis 04/08/2019: Transition of care performed with sharing of clinical summary Comment: Admit [facility] 03/21/19-03/22/19 Discharge diagnoses chronic kidney disease with worsening creatinine, acute kidney injury Hypokalemia Toxic encephalopathy secondary to Flexeril overusage Type 2 diabetes Ischemic cardiomyopathy Coronary artery disease Ligamental cervical neck strain and acute Pulmonary hypertension Hypertension Pyuria Preadmit: to [facility] ED with slurred speech, lethargy. PAST [...] injection pe (more content not included)... Normal [facility] XR Knee - right AP and Later al and obliqueon 03-04-2024 IMPRESSION: Possible healing fibular head fracture. No acute fracture. Military Personnel Specialist: CARMELA Transcribe Date/Time: Mar 04 2024 8:06P Dictated by : SONG DE LA GARZA MD This examination was interpreted and the report reviewed and electronically signed by: SONG DE LA GARZA MD on Mar 04 2024 8:09PM [facility] * * *Final Report* * * [...] femoral fracture. Decreased size of joint effusion. [facility] Provider, Phyllis Camp - 03/04/2024 * [...] healing fibular head fracture. No acute fracture. Military Personnel Specialist: PSCB Transcribe Date/Time: Mar 04 2024 8:06P Dictated by : SONG DE LA GARZA MD This examination was interpreted and the report reviewed and electronically signed by: SONG DE LA GARZA MD on Mar 04 2024 8:09PM [facility] XR Knee - right AP and Later al and obliqueOrdered By: Ccf Provider on 03-04-2024 [facility] CNOVon 03-03-2024 CNOV Office Visit (ORMDNA ) -- MAURI QUINONES ([id number]) 1955 M Date Time Provider Department 03/03/24 [...] 3 (moder* (more content not included)... Normal [facility] XR KNEE 4V AP/LAT/OBLS RTon 03-03-2024 [...] healing fibular head fracture. No acute fracture. Military Personnel Specialist: CARMELA Transcribe Date/Time: Mar 04 2024 8:06P Dictated by : SONG DE LA GARZA MD This examination was interpreted and the report reviewed and electronically signed by: SONG DE LA GARZA MD on Mar 04 2024 8:09PM EST [id number] [facility] XR Knee - right AP and Later al and obliqueon 03-03-2024 Radiology Study observation (narrative) [facility] Aniket 02-15-2024 CNPN Telephone (ORMDNA) -- STACIEMAURI L ([id number]) 1955 M Date Time Provider Department 02/15/24 [...] calling: self Call patient at: at home [phone] (home) [phone] (work) [phone] (cell) Was an appointment scheduled: No Closing statement: Symptom Call: Thank you for calling [facility], your call is very important. A [...] tachycardia [Z86 (more content not included)... Normal [facility] XR Ankle - right AP and Late ral and obliqueon 02-15-2024 IMPRESSION: No acute abnormality Military Personnel Specialist: [facility] Transcribe Date/Time: Feb 15 2024 7:43A Dictated by : SONG DE LA GARZA MD This examination was interpreted and the report reviewed and electronically signed by: SONG DE LA GARZA MD on Feb 15 2024 7:44AM [facility] * * *Final Report* * * [...] No soft tissue swelling. Advanced vascular calcifications. [facility] Provider, [facility] - 02/15/2024 * * *Final Report* [...] vascular calcifications. IMPRESSION IMPRESSION: No acute abnormality Military Personnel Specialist: [facility] Transcribe Date/Time: Feb 15 2024 7:43A Dictated by : SONG DE LA GARZA MD This examination was interpreted and the report reviewed and electronically signed by: SONG DE LA GARZA MD on Feb 15 2024 7:44AM EST [facility] XR Knee - right AP and Later al and obliqueon 02-15-2024 IMPRESSION: Joint effusion. Intact TKA Military Personnel Specialist: CARMELA Transcribe Date/Time: Feb 15 2024 7:41A Dictated by : SONG DE LA GARZA MD This examination was interpreted and the report reviewed and electronically signed by: SONG DE LA GARZA MD on Feb 15 2024 7:43AM EST [facility] * * *Final Report* * * [...] fracture with intramedullary minesh. Advanced vascular calcifications. [facility] * * *Final Report* * [...] calcifications. IMPRESSION IMPRESSION: Joint effusion. Intact TKA Military Personnel Specialist: CARMELA Transcribe Date/Time: Feb 15 2024 7:41A Dictated by : SONG DE LA GARZA MD This examination was interpreted and the report reviewed and electronically signed by: SONG DE LA GARZA MD on Feb 15 2024 7:43AM EST [facility] XR Knee - right AP and Later al and obliqueOrdered By: Ccf Provider on 02-15-2024 [facility] CNOVon 02-13-2024 CNOV Office Visit (ORMDNA ) -- STACIEMAURI ([id number]) 1955 M Date Time Provider Department 02/13/24 2:15 PM NUPUR DE LA ROSA During your visit today, we recorded the following information about you: Flavio Rivera Arsanis 02/15/2024 5:28 PM Signed PT ASSESSMENT - [...] Acute on chronic diastolic congestive heart failure ([facility]) 07/14/2018 GARRET (acute kidney injury) ([facility]) 03/24/2019 GARRET (acute kidney injury) ([facility]) 03/24/2019 Ankylosing spondylitis ([facility]) CAD (coronary artery disease) Cellulitis Chronic combined systolic and diastolic CHF (congestive heart failure) ([facility]) 03/24/2019 CKD (chronic kidney disease) stage 3, GFR 30-59 ml/min ([facility]) 03/24/2019 Constipation Diabetes ([facility]) Gout High phosphate levels 03/24/2019 History of [...] valve calcifi NSTEMI (non-ST elevated myocardial infarction) ([facility]) 03/12/2017 [facility] admit Osteoarthritis Transition of care performed with sharing of clinical summary 04/08/2019 Admit [facility] 03/21/19-03/22/19 Discharge diagnoses chronic kidney disease with worsening creatinine, acute kidney injury Hypokalemia Toxic encephalopathy secondary to Flexeril overusage Type 2 diabetes Ischemic cardiomyopathy Coronary artery disease Ligamental cervical neck strain and acute Pulmonary hypertension Hypertension Pyuria Preadmit: to [facility] ED with slurred speech, lethargy. PAST [...] 40 mg (more content not included)... Normal [facility] No Panel Informationon 02-12 Radiology Study observation (narrative) [facility] XR ANKLE 3V AP/LAT/OBL RTon 02-13-2024 [...] Advanced vascular calcifications. IMPRESSION: No acute abnormality Military Personnel Specialist: CARMELA Transcribe Date/Time: Feb 15 2024 7:43A Dictated by : SONG DE LA GARZA MD This examination was interpreted and the report reviewed and electronically signed by: SONG DE LA GARZA MD on Feb 15 2024 7:44AM EST [id number] [facility] XR KNEE 4V AP/LAT/OBLS RTon 02-13-2024 [...] vascular calcifications. IMPRESSION: Joint effusion. Intact TKA Military Personnel Specialist: CARMELA Transcribe Date/Time: Feb 15 2024 7:41A Dictated by : SONG DE LA GARZA MD This examination was interpreted and the report reviewed and electronically signed by: SONG DE LA GARZA MD on Feb 15 2024 7:43AM EST [id number] [facility] 02-07-2024 [facility] Telephone (ORMDNA) -- MAURI QUINONES ([id number]) 1955 M Date Time Provider Department 02/07/24 NUPUR DE LA ROSA During your visit today, we recorded the following information about you: Isabela Rosado, BISMARK 02/07/2024 7:52 AM Signed Pt has been scheduled in a locked slot The locked slots are for DR. MCCONNELL OFFICE STAFF ONLY (please see heading) These are to be used ONLY when Dr De La Rosa is reservations specialist for [place] or [facility]-please do an error report on the [...] dialysis (HCC* (more content not included)... [facility] -- MAURI QUINONES ([id number]) 1955 M Date Time Provider Department 02/05/24 [facility] During your visit today, we recorded the following information about you: Rebecca Moe LPN 02/05/2024 11:27 AM Signed Rozina Sheth from [facility] calling patient had fall on 02/01 in [place] and has fractured tibial plateau right leg. He is back at home now. He and his are trying to get him in with Ramón Sauceda at [facility] he has seen previously. He needs no [...] [R94.31] 01/03/2023 (more content not included)... Normal [facility] XR Tibia and Fibula - right AP and Lateralon 11-11-2023 IMPRESSION: No acute abnormality Military Personnel Specialist: CARMELA Transcribe Date/Time: Nov 11 2023 5:37P Dictated by : SONG DE LA GARZA MD This examination was interpreted and the report reviewed and electronically signed by: SONG DE LA GARZA MD on Nov 11 2023 5:39PM [facility]ISION OF RADIOLOG[facility] * * *Final [...] body is seen. DIVISION OF RADIOLOGY Provider, [facility] - 11/11/2023 * * *Final Report* * [...] is seen. IMPRESSION IMPRESSION: No acute abnormality Military Personnel Specialist: PSCB Transcribe Date/Time: Nov 11 2023 5:37P Dictated by : SONG DE LA GARZA MD This examination was interpreted and the report reviewed and electronically signed by: SONG DE LA GARZA MD on Nov 11 2023 5:39PM EST [facility] XR Tibia and Fibula - right AP and LateralOrdered By: Ccf Provider on 11-11-2023 [facility] XR Tibia and Fibula - right AP and Lateralon 11-08-2023 Radiology Study observation (narrative) [facility] COVID NAAT, UPPER RESPIRATOR Y, ROUTINEon 05-18-2023 SARS-CoV-2 (COVID-19) RNA AMADOU+probe Ql (Resp) Not detected See comment [facility] ANES POSTPROC EVALon 023 ANES POSTPROC EVAL Normal [facility] ANES PRE-OPon 04-23-2023 ANES PRE-OP Normal [facility] Basic metabolic 2000 panelon 04-23-2023 Anion gap [Moles/Vol] 8 mmol/L Normal 5-16 [facility] Comment on above: Order Comment: Speci men Type: BLOOD SPECIMENOrdering Facility: [facility] Address: [address] [place] [address] Performed By: #### 2 4321-2 ####[facility] LABORATORYCLIA [id number] [place] [address] [place] Calcium [Mass/Vol] 9.3 mg/dL Normal 8.5-10.5 [facility] Comment on above: Order Comment: Speci men Type: BLOOD SPECIMENOrdering Facility: [facility] Address: [address] [place] [address] Performed By: #### 2 4321-2 ####[facility] LABORATORYCLIA [id number] [place] [address] [place] Chloride [Moles/Vol] 100 mmol/L Normal 98-107 [facility] Comment on above: Order Comment: Speci men Type: BLOOD SPECIMENOrdering Facility: [facility] Address: [address] [place] [address] Performed By: #### 2 4321-2 ####[facility] LABORATORYCLIA [id number] [place] [address] [place] CO2 [Moles/Vol] 33 mmol/L High 21-32 [facility] Comment on above: Order Comment: Speci men Type: BLOOD SPECIMENOrdering Facility: [facility] Address: [address] [place] [address] Performed By: #### 2 4321-2 ####[facility] LABORATORYCLIA [id number] [place] [address] [place] Creatinine [Mass/Vol] 4.48 mg/dL High 0.50-1.40 [facility] Comment on above: Order Comment: Speci men Type: BLOOD SPECIMENOrdering Facility: [facility] Address: [address] [place] [address] Result Comment: Macrina ents receiving either N-Acetylcysteine (NAC) or Metamizole prior to venipuncture, may have falsely depressed results. Performed By: #### 2 4321-2 ####[facility] LABORATORYCLIA [id number] [place] [address] [place] Creatinine and Glomerular filtration rate.predicted panel (S/P/Bld) 14 mL/min/1.73m??? Low >=60 [facility] Comment on above: Order Comment: Kelsi huff Type: BLOOD SPECIMENOrdering Facility: [facility] Address: [place] [place] [address] Result Comment: Caryl mated Glomerular Filtration Rate [...] actual GFR. Performed By: #### 2 4321-2 ####[facility] LABORATORYCLIA [id number] [place] [address] [place] Glucose [Mass/Vol] 94 mg/dL Normal 70-100 [facility] Comment on above: Order Comment: Kelsi huff Type: BLOOD SPECIMENOrdering Facility: [facility] Address: [place] [address] Result Comment: The [place] Diabetes Association (ADA) provides guidance for cutoff [...] Standards of Medical Care in Diabetes 2016, [place] [employer] Association. Diabetes Care. 2016.39(Suppl 1).Results may be falsely elevated after the administration of Sulfapyridine.Results may be falsely depressed after the administration of Sulfasalazine. Performed By: #### 2 4321-2 ####[facility] LABORATORYCLIA [id number] [place] [address] [place] Potassium [Moles/Vol] 3.8 mmol/L Normal 3.5-5.1 [facility] Comment on above: Order Comment: Speci men Type: BLOOD SPECIMENOrdering Facility: [facility] Address: [address] [place] [address] Performed By: #### 2 4321-2 ####[facility] LABORATORYCLIA [id number] [address] STATES OF [facility] Sodium [Moles/Vol] 141 mmol/L Normal 136-145 [facility] Comment on above: Order Comment: Speci men Type: BLOOD SPECIMENOrdering Facility: [facility] Address: [address] [place] [address] Performed By: #### 2 4321-2 ####[facility] LABORATORYCLIA [id number] [place] [address] [place] Urea nitrogen [Mass/Vol] 66 mg/dL High 7-26 [facility] Comment on above: Order Comment: Speci men Type: BLOOD SPECIMENOrdering Facility: [facility] Address: [address] [place] [place] [address] Performed By: #### 2 4321-2 ####[facility] LABORATORYCLIA [id number] [place] [address] [place] OPERATIVE NOon 04-23-2023 OPERATIVE NO Normal [facility] STAPH AUREUS PCRon 3 S. aureus and MRSA panel AMADOU+probe (Nose) Normal Negative [facility] Comment on above: Order Comment: Speci men Type: SWAB OF INTERNAL NOSEOrdering Facility: [facility] Address: [address] [place] [address] Result Comment: Nega tive for Staphylococcus aureus by PCR.Negative for MRSA by PCR Performed By: #### S APCR ####[facility] LABORATORYCLIA [id number] [address] SURGICAL PATHOLOGYon 023 CASE REPORT Normal [facility] Comment on above: Order Comment: Speci men Type: DEVICE SPECIMENOrdering Facility: [facility] Address: [address] [place] [address] Result Comment: Surg ical Pathology Report Case: [id number] Provider: Ramón Byrd MD Collected: 04/23/2023 08:24 AMOrdering Location: [facility] Surgery Received: 04/23/2023 10:43 AMPathologist: Dev Figueroa MDSpecimen: HARDWARE, Removed hardware right femur, gross only Performed By: #### S ####[facility] LABORATORYCLIA [id number] [address] CLINICAL HISTORY Normal [facility] Comment on above: Order Comment: Speci men Type: DEVICE SPECIMENOrdering Facility: [facility] Address: [address] [place] [address] Result Comment: Pre- op diagnosis:Breakdown (mechanical) of internal fixation device of right femur, subsequent encounter [T84.114D]Periprosthetic fracture around internal prosthetic right hip joint, sequela [M97.01XS] Performed By: #### S ####[facility] LABORATORYCLIA [id number] [address] FINAL DIAGNOSIS Normal [facility] Comment on above: Order Comment: Speci men Type: DEVICE SPECIMENOrdering Facility: [facility] Address: [address] [place] [address] Result Comment: A. R emoved hardware right femur, gross only: Medical metallic hardware consisting of one screw (gross examination only). Performed By: #### S ####[facility] LABORATORYCLIA [id number] [address] FINAL PERFORMING LAB [facility] Comment on above: Order Comment: Speci men Type: DEVICE SPECIMENOrdering Facility: [facility] Address: [address] [place], [place] [id number] Result Comment: Diag nostic interpretation performed at [facility], [address] [place] [address] CLIA# [id number] Director: Jannet Rincon M.D. Performed By: #### S ####[facility] LABORATORYCLIA [id number] [address] GROSS DESCRIPTION A. HARDWARE [facility] Comment on above: Order Comment: Speci men Type: DEVICE SPECIMENOrdering Facility: [facility] Address: [address] [place], [place] [address] Result Comment: Rece ived fresh labeled removed hardware right femur, gross only is one 8.1 x 0.7 x 0.7 cm screw without attached soft tissue. No sections are submitted. The specimen is for gross examination only.Gross examination performed at [address] [id number]/JEFFERY 04/23/23 11:33 AM Performed By: #### S ####[facility] LABORATORYCLIA [id number] [address] MICROSCOPIC DESCRIPTION Gross examination only. [facility] Comment on above: Order Comment: Speci men Type: DEVICE SPECIMENOrdering Facility: [facility] Address: [address] [place], [place] [id number] Performed By: #### S ####[facility] LABORATORYCLIA [id number] [place] [address] [place] XR FLUOROSCOPYon 04-23-2023 XR FLUOROSCOPY Normal [facility] ANES PREOPon 04-20-2023 ANES PREOP [facility] 36on 04-06-2023 36 Noted Normal [facility] 36 Patient returned sabrina l to schedule. He is unable to come to office this week or next week, but states he will be able to schedule for 04/19/2023. Patient reports no pain/redness/drainage at site, though swelling bubble is still present and the site is no longer bothering him. OV: 04/19 with Stormy Mcdonnell PA-C [facility] 36 Contacted [facility] to speak with dialysis center regarding patient's complaints. Per Nurse [employer] Repairer Mary, there appears to be a small bubbled up 2-3cm area directly on top of fistula. She stated that patient cannulated effectively and there were no other issues. Dialysis center did not order testing as they did not feel it was urgent or necessary. Attempted to call patient to schedule OV for further assessment-no answer. Left voicemail requesting patient contact [facility] to schedule. [facility] 36 Attempted to contact patient 04/05/2023, phone call disconnect. Will attempt today 04/06/2023. [facility] 36on 04-04-2023 36 It sounds like it wa s infiltrated---but these calls generally come from the dialysis center Probably best to call them and see what is really going on [address] [facility] 36 Patient called with c/o swelling and bruising at fistula site. He went to dialysis Sunday and cannulated without issues. The swelling began after Sunday's dialysis session. No signs of bleeding, no numbness, no tingling. Has dialysis T,Th,Sa @0600. Testing or OV needed to assess? Last OV: 01/02/2022- follow up for swelling around fistula Surgery: AVF 02/25/[address] [facility] Basic metabolic 2000 panelon 01-04-2023 Anion gap [Moles/Vol] 7 mmol/L Normal 5-16 [facility] Comment on above: Order Comment: Kelsi huff Type: BLOOD SPECIMENOrdering Facility: [facility] Address: [address] [place] [address] Performed By: #### 2 4321-2 ####[facility] LABORATORYCLIA [id number] [place] [address] [place] Calcium [Mass/Vol] 8.7 mg/dL Normal 8.5-10.5 [facility] Comment on above: Order Comment: Kelsi huff Type: BLOOD SPECIMENOrdering Facility: [facility] Address: [address] [address] Performed By: #### 2 4321-2 ####[facility] LABORATORYCLIA [id number] [place] [id number] [place] Chloride [Moles/Vol] 96 mmol/L Low 98-107 [facility] Comment on above: Order Comment: Speci men Type: BLOOD SPECIMENOrdering Facility: [facility] Address: [address] [place] [address] Performed By: #### 2 4321-2 ####[facility] LABORATORYCLIA [id number] [place] [address] [place] CO2 [Moles/Vol] 31 mmol/L Normal 21-32 [facility] Comment on above: Order Comment: Speci men Type: BLOOD SPECIMENOrdering Facility: [facility] Address: [address] [place] [address] Performed By: #### 2 4321-2 ####[facility] LABORATORYCLIA [id number] [place] [address] [place] Creatinine [Mass/Vol] 5.50 mg/dL High 0.50-1.40 [facility] Comment on above: Order Comment: Speci men Type: BLOOD SPECIMENOrdering Facility: [facility] Address: [address] [place] [address] Result Comment: Macrina ents receiving either N-Acetylcysteine (NAC) or Metamizole prior to venipuncture, may have falsely depressed results. Performed By: #### 2 4321-2 ####[facility] LABORATORYCLIA [id number] [place] [address] [place] ESTIMATED GLOMERULAR FILTRATION RATE 11 mL/min/1.73m??? Low >=60 [facility] Comment on above: Order Comment: Speci men Type: BLOOD SPECIMENOrdering Facility: [facility] Address: [address] [place] [address] Result Comment: Caryl mated Glomerular Filtration Rate [...] actual GFR. Performed By: #### 2 4321-2 ####[facility] LABORATORYCLIA [id number] [place] [address] [place] Glucose [Mass/Vol] 103 mg/dL High 70-100 [facility] Comment on above: Order Comment: Kelsi huff Type: BLOOD SPECIMENOrdering Facility: [facility] Address: [address] [place], [place] [phone] Result Comment: The [place] Diabetes Association (ADA) provides guidance for cutoff [...] Standards of Medical Care in Diabetes 2016, [place] [employer] Association. Diabetes Care. 2016.39(Suppl 1).Results may be falsely elevated after the administration of Sulfapyridine.Results may be falsely depressed after the administration of Sulfasalazine. Performed By: #### 2 4321-2 ####[facility] LABORATORYCLIA [id number] [place] [address] [place] Potassium [Moles/Vol] 4.9 mmol/L Normal 3.5-5.1 [facility] Comment on above: Order Comment: Kelsi huff Type: BLOOD SPECIMENOrdering Facility: [facility] Address: [address] [place] [address] Performed By: #### 2 4321-2 ####[facility] LABORATORYCLIA [id number] [place] [id number] [place] Sodium [Moles/Vol] 134 mmol/L Low 136-145 [facility] Comment on above: Order Comment: Speci men Type: BLOOD SPECIMENOrdering Facility: [facility] Address: [address] [address] Performed By: #### 2 4321-2 ####[facility] LABORATORYCLIA [id number] [place] [address] [place] Urea nitrogen [Mass/Vol] 49 mg/dL High 7-26 [facility] Comment on above: Order Comment: Speci men Type: BLOOD SPECIMENOrdering Facility: [facility] Address: [address] [address] Performed By: #### 2 4321-2 ####[facility] LABORATORYCLIA [id number] [address] [place] CASE MANAGEMon 01-04-2023 CASE MANAGEM Normal [facility] CASE MANAGEM Normal [facility] CBC W Auto Differential pane l (Bld)on 01-04-2023 Basophils (Bld) [#/Vol] 0.03 10*3/uL Normal <0.11 [facility] Comment on above: Order Comment: Speci men Type: BLOOD SPECIMENOrdering Facility: [facility] Address: [address] [place] [address] Performed By: #### 5 7021-8 ####[facility] LABORATORYCLIA [id number] [address] [place] Basophils/100 WBC (Bld) 0.3 % Normal [facility] Comment on above: Order Comment: Speci men Type: BLOOD SPECIMENOrdering Facility: [facility] Address: [address] [address] Performed By: #### 5 7021-8 ####[facility] LABORATORYCLIA [id number] [place] [address] [place] Differential cell count method Nom (Bld) Auto Normal [facility] Comment on above: Order Comment: Speci men Type: BLOOD SPECIMENOrdering Facility: [facility] Address: [address] [address] Performed By: #### 5 7021-8 ####[facility] LABORATORYCLIA [id number] [place] [address] [place] Eosinophils (Bld) [#/Vol] 0.24 10*3/uL Normal <0.46 [facility] Comment on above: Order Comment: Speci men Type: BLOOD SPECIMENOrdering Facility: [facility] Address: [address] [place] [address] Performed By: #### 5 7021-8 ####[facility] LABORATORYCLIA [id number] [address] [place] Eosinophils/100 WBC (Bld) 2.4 % Normal [facility] Comment on above: Order Comment: Speci men Type: BLOOD SPECIMENOrdering Facility: [facility] Address: [address] [place] [address] Performed By: #### 5 7021-8 ####[facility] LABORATORYCLIA [id number] [address] [place] Erythrocyte distribution width (RBC) [Ratio] 14.1 % Normal 11.5-15.0 [facility] Comment on above: Order Comment: Speci men Type: BLOOD SPECIMENOrdering Facility: [facility] Address: [address] [place] [address] Performed By: #### 5 7021-8 ####[facility] LABORATORYCLIA [id number] [place] [address] [place] Hematocrit (Bld) [Volume fraction] 22.8 % Low 39.0-51.0 [facility] Comment on above: Order Comment: Speci men Type: BLOOD SPECIMENOrdering Facility: [facility] Address: [address] [place] [address] Performed By: #### 5 7021-8 ####[facility] LABORATORYCLIA [id number] [place] [address] [place] Hemoglobin (Bld) [Mass/Vol] 7.3 g/dL Low 13.0-17.0 [facility] Comment on above: Order Comment: Speci men Type: BLOOD SPECIMENOrdering Facility: [facility] Address: [address] [address] Performed By: #### 5 7021-8 ####[facility] LABORATORYCLIA [id number] [place] [address] [place] Immature granulocytes (Bld) [#/Vol] 0.03 10*3/uL Normal <0.10 [facility] Comment on above: Order Comment: Speci men Type: BLOOD SPECIMENOrdering Facility: [facility] Address: [address] [address] Performed By: #### 5 7021-8 ####[facility] LABORATORYCLIA [id number] [address] STATES [facility] Immature granulocytes/100 WBC (Bld) 0.3 % Normal [facility] Comment on above: Order Comment: Speci men Type: BLOOD SPECIMENOrdering Facility: [facility] Address: [address] [address] Performed By: #### 5 7021-8 ####[facility] LABORATORYCLIA [id number] [place] [address] [place] Lymphocytes (Bld) [#/Vol] 1.14 10*3/uL Normal 1.00-4.00 [facility] Comment on above: Order Comment: Speci men Type: BLOOD SPECIMENOrdering Facility: [facility] Address: [address] [address] Performed By: #### 5 7021-8 ####[facility] LABORATORYCLIA [id number] [place] [address] [place] Lymphocytes/100 WBC (Bld) 11.4 % Normal [facility] Comment on above: Order Comment: Speci men Type: BLOOD SPECIMENOrdering Facility: [facility] Address: [address] [address] Performed By: #### 5 7021-8 ####[facility] LABORATORYCLIA [id number] [address] [place] MCH (RBC) [Entitic mass] 30.9 pg Normal 26.0-34.0 [facility] Comment on above: Order Comment: Speci men Type: BLOOD SPECIMENOrdering Facility: [facility] Address: [address] [place] [address] Performed By: #### 5 7021-8 ####[facility] LABORATORYCLIA [id number] [address] [place] MCHC (RBC) [Mass/Vol] 32.0 g/dL Normal 30.5-36.0 [facility] Comment on above: Order Comment: Speci men Type: BLOOD SPECIMENOrdering Facility: [facility] Address: [address] [place] [address] Performed By: #### 5 7021-8 ####[facility] LABORATORYCLIA [id number] [address] [place] MCV (RBC) [Entitic vol] 96.6 fL Normal 80.0-100.0 [facility] Comment on above: Order Comment: Speci men Type: BLOOD SPECIMENOrdering Facility: [facility] Address: [address] [place] [address] Performed By: #### 5 7021-8 ####[facility] LABORATORYCLIA [id number] [address] [place] Monocytes (Bld) [#/Vol] 1.19 10*3/uL High <0.87 [facility] Comment on above: Order Comment: Speci men Type: BLOOD SPECIMENOrdering Facility: [facility] Address: [address] [address] Performed By: #### 5 7021-8 ####[facility] LABORATORYCLIA [id number] [address] Monocytes/100 WBC (Bld) 11.9 % Normal [facility] Comment on above: Order Comment: Speci men Type: BLOOD SPECIMENOrdering Facility: [facility] Address: [address] [place] [address] Performed By: #### 5 7021-8 ####[facility] LABORATORYCLIA [id number] [place] [address] [place] Neutrophils (Bld) [#/Vol] 7.37 10*3/uL Normal 1.45-7.50 [facility] Comment on above: Order Comment: Speci men Type: BLOOD SPECIMENOrdering Facility: [facility] Address: [address] [place] [address] Performed By: #### 5 7021-8 ####[facility] LABORATORYCLIA [id number] [place] [address] [place] Neutrophils/100 WBC (Bld) 73.7 % Normal [facility] Comment on above: Order Comment: Speci men Type: BLOOD SPECIMENOrdering Facility: [facility] Address: [address] [place] [address] Performed By: #### 5 7021-8 ####[facility] LABORATORYCLIA [id number] [place] [address] [place] Nucleated RBC (Bld) [#/Vol] 10*3/uL Normal <0.01 [facility] Comment on above: Order Comment: Speci men Type: BLOOD SPECIMENOrdering Facility: [facility] Address: [address] [place] [address] Performed By: #### 5 7021-8 ####[facility] LABORATORYCLIA [id number] [place] [address] [place] Nucleated RBC/100 WBC (Bld) [Ratio] 0.0 /100 WBC Normal [facility] Comment on above: Order Comment: Speci men Type: BLOOD SPECIMENOrdering Facility: [facility] Address: [address] [place] [address] Performed By: #### 5 7021-8 ####[facility] LABORATORYCLIA [id number] [place] [address] [place] Platelet mean volume (Bld) [Entitic vol] 9.7 fL Normal 9.0-12.7 [facility] Comment on above: Order Comment: Speci men Type: BLOOD SPECIMENOrdering Facility: [facility] Address: [address] [place] [address] Performed By: #### 5 7021-8 ####[facility] LABORATORYCLIA [id number] [place] [id number] [facility] Platelets (Bld) [#/Vol] 148 10*3/uL Low 150-400 [facility] Comment on above: Order Comment: Speci men Type: BLOOD SPECIMENOrdering Facility: [facility] Address: [address] [address] Performed By: #### 5 7021-8 ####[facility] LABORATORYCLIA [id number] [place] [address] [place] RBC (Bld) [#/Vol] 2.36 10*6/uL Low 4.20-6.00 [facility] Comment on above: Order Comment: Speci men Type: BLOOD SPECIMENOrdering Facility: [facility] Address: [address] [place] [address] Performed By: #### 5 7021-8 ####[facility] LABORATORYCLIA [id number] [address] [place] WBC (Bld) [#/Vol] 10.00 10*3/uL Normal 3.70-11.00 [facility] Comment on above: Order Comment: Speci men Type: BLOOD SPECIMENOrdering Facility: [facility] Address: [address] Performed By: #### 5 7021-8 ####[facility] LABORATORYCLIA [id number] [place] [id number] [facility] [place] CNDSon 01-04-2023 CNDS [facility] CONSULT PROGon 01-04-2023 CONSULT PROG [facility] NURSING PROGon 01-04-2023 NURSING PROG [facility] THERAPY NTon 01-04-2023 THERAPY NT [facility] Basic metabolic 2000 panelon 01-03-2023 Anion gap [Moles/Vol] 6 mmol/L Normal 5-16 [facility] Comment on above: Order Comment: Speci men Type: BLOOD SPECIMENOrdering Facility: [facility] Address: [address] [place] [address] Performed By: #### 2 4321-2, ####[facility] LABORATORYCLIA [id number] [place] [id number] [place] Calcium [Mass/Vol] 8.5 mg/dL Normal 8.5-10.5 [facility] Comment on above: Order Comment: Speci men Type: BLOOD SPECIMENOrdering Facility: [facility] Address: [address] [place] [address] Performed By: #### 2 4321-2, ####[facility] LABORATORYCLIA [id number] [place] [address] [place] Chloride [Moles/Vol] 99 mmol/L Normal 98-107 [facility] Comment on above: Order Comment: Speci men Type: BLOOD SPECIMENOrdering Facility: [facility] Address: [address] [place] [address] Performed By: #### 2 432-2, ####[facility] LABORATORYCLIA [id number] [place] [address] [place] CO2 [Moles/Vol] 32 mmol/L Normal 21-32 [facility] Comment on above: Order Comment: Speci men Type: BLOOD SPECIMENOrdering Facility: [facility] Address: [address] [place] [address] Performed By: #### 2 4321-2, ####[facility] LABORATORYCLIA [id number] [place] [address] [place] Creatinine [Mass/Vol] 4.11 mg/dL High 0.50-1.40 [facility] Comment on above: Order Comment: Speci men Type: BLOOD SPECIMENOrdering Facility: [facility] Address: [address] [place] [address] Result Comment: Macrina ents receiving either N-Acetylcysteine (NAC) or Metamizole prior to venipuncture, may have falsely depressed results. Performed By: #### 2 4321-2, 31232-7 ####[facility] LABORATORYCLIA [id number] [place] [id number] [place] ESTIMATED GLOMERULAR FILTRATION RATE 15 mL/min/1.73m??? Low >=60 [facility] Comment on above: Order Comment: Kelsi huff Type: BLOOD SPECIMENOrdering Facility: [facility] Address: [address] [address] Result Comment: Caryl mated Glomerular Filtration Rate [...] actual GFR. Performed By: #### 2 4321-2, 41647-1 ####[facility] LABORATORYCLIA [id number] [place] [address] [place] Glucose [Mass/Vol] 86 mg/dL Normal 70-100 [facility] Comment on above: Order Comment: Kelsi huff Type: BLOOD SPECIMENOrdering Facility: [facility] Address: [address] [place] [address] Result Comment: The [place] Diabetes Association (ADA) provides guidance for cutoff [...] Standards of Medical Care in Diabetes 2016, [place] [employer]. Diabetes Care. 2016.39(Suppl 1).Results may be falsely elevated after the administration of Sulfapyridine.Results may be falsely depressed after the administration of Sulfasalazine. Performed By: #### 2 4321-2, ####[facility] LABORATORYCLIA [id number] [place] [id number] [place] Potassium [Moles/Vol] 4.4 mmol/L Normal 3.5-5.1 [facility] Comment on above: Order Comment: Speci men Type: BLOOD SPECIMENOrdering Facility: [facility] Address: [address] [address] Performed By: #### 2 432-2, ####[facility] LABORATORYCLIA [id number] [place] [id number] [place] Sodium [Moles/Vol] 137 mmol/L Normal 136-145 [facility] Comment on above: Order Comment: Speci men Type: BLOOD SPECIMENOrdering Facility: [facility] Address: [address] [place] [address] Performed By: #### 2 43208-28, ####[facility] LABORATORYCLIA [id number] [place] [address] [place] Urea nitrogen [Mass/Vol] 33 mg/dL High 7-26 [facility] Comment on above: Order Comment: Speci men Type: BLOOD SPECIMENOrdering Facility: [facility] Address: [address] [place] [address] Performed By: #### 2 4322, ####[facility] LABORATORYCLIA [id number] [place] [address] [place] CASE MANAGEMon 01-03-2023 CASE MANAGEM Normal [facility] CBC panel Auto (Bld)on 01-03 Erythrocyte distribution width (RBC) [Ratio] 14.1 % Normal 11.5-15.0 [facility] Comment on above: Order Comment: Speci men Type: BLOOD SPECIMENOrdering Facility: [facility] Address: [address] [address] Performed By: #### 5 8410-2 ####[facility] LABORATORYCLIA [id number] [address] OF [facility] Hematocrit (Bld) [Volume fraction] 25.4 % Low 39.0-51.0 [facility] Comment on above: Order Comment: Speci men Type: BLOOD SPECIMENOrdering Facility: [facility] Address: [address] [place] [address] Performed By: #### 5 8410-2 ####[facility] LABORATORYCLIA [id number] [address] [place] Hemoglobin (Bld) [Mass/Vol] 8.2 g/dL Low 13.0-17.0 [facility] Comment on above: Order Comment: Speci men Type: BLOOD SPECIMENOrdering Facility: [facility] Address: [address] [place] [address] Performed By: #### 5 8410-2 ####[facility] LABORATORYCLIA [id number] [address] MCH (RBC) [Entitic mass] 31.1 pg Normal 26.0-34.0 [facility] Comment on above: Order Comment: Speci men Type: BLOOD SPECIMENOrdering Facility: [facility] Address: [address] [place] [address] Performed By: #### 5 8410-2 ####[facility] LABORATORYCLIA [id number] [address] [place] MCHC (RBC) [Mass/Vol] 32.3 g/dL Normal 30.5-36.0 [facility] Comment on above: Order Comment: Speci men Type: BLOOD SPECIMENOrdering Facility: [facility] Address: [address] [place] [address] Performed By: #### 5 8410-2 ####[facility] LABORATORYCLIA [id number] [address] [place] MCV (RBC) [Entitic vol] 96.2 fL Normal 80.0-100.0 [facility] Comment on above: Order Comment: Speci men Type: BLOOD SPECIMENOrdering Facility: [facility] Address: [address] Performed By: #### 5 8410-2 ####[facility] LABORATORYCLIA [id number] [place] [address] [place] Nucleated RBC (Bld) [#/Vol] 10*3/uL Normal <0.01 [facility] Comment on above: Order Comment: Speci men Type: BLOOD SPECIMENOrdering Facility: [facility] Address: [address] Performed By: #### 5 8410-2 ####[facility] LABORATORYCLIA [id number] [place] [address] [place] Platelet mean volume (Bld) [Entitic vol] 9.6 fL Normal 9.0-12.7 [facility] Comment on above: Order Comment: Speci men Type: BLOOD SPECIMENOrdering Facility: [facility] Address: [address] [place] [place] [address] Performed By: #### 5 8410-2 ####[facility] LABORATORYCLIA [id number] [place] [address] [place] Platelets (Bld) [#/Vol] 142 10*3/uL Low 150-400 [facility] Comment on above: Order Comment: Speci men Type: BLOOD SPECIMENOrdering Facility: [facility] Address: [address] Performed By: #### 5 8410-2 ####[facility] LABORATORYCLIA [id number] [place] [address] [place] RBC (Bld) [#/Vol] 2.64 10*6/uL Low 4.20-6.00 [facility] Comment on above: Order Comment: Speci men Type: BLOOD SPECIMENOrdering Facility: [facility] Address: [address] [address] Performed By: #### 5 8410-2 ####[facility] LABORATORYCLIA [id number] [place] [address] [facility] [place] WBC (Bld) [#/Vol] 9.25 10*3/uL Normal 3.70-11.00 [facility] Comment on above: Order Comment: Speci men Type: BLOOD SPECIMENOrdering Facility: [facility] Address: [address] [place] [address] Performed By: #### 5 8410-2 ####[facility] LABORATORYCLIA [id number] [address] [place] CONSULTon 01-03-2023 CONSULT Normal [facility] CONSULT PROGon 01-03-2023 CONSULT PROG Normal [facility] ECG COMPLETEon 01-03-2023 ECG COMPLETE Normal [facility] HIGH SENSITIVITY TROPONIN Io n 01-03-2023 Tropinin I.cardiac panel High sensitivity method 42.5 pg/mL Normal 0.0-54.0 [facility] Comment on above: Order Comment: Speci men Type: BLOOD SPECIMENOrdering Facility: [facility] Address: [address] [place] [address] Result Comment: This assay uses different antibodies than our current assay, and assays, even by the same boil off machine operator cloth may recognize different regions of the antibody and cannot be used interchangeably. Expect results of this assay to run higher than the previous assay. Performed By: #### H STROP ####[facility] LABORATORYCLIA [id number] [address] [place] Magnesium SerPl-mCncon 01-03 Magnesium [Mass/Vol] 1.7 mg/dL Normal 1.6-2.6 [facility] Comment on above: Order Comment: Speci men Type: BLOOD SPECIMENOrdering Facility: [facility] Address: [address] [place] [address] Performed By: #### 2 4321-2, 12302-5 ####[facility] LABORATORYCLIA [id number] [place] [address] [place] THERAPY NTon 01-03-2023 THERAPY NT Normal [facility] THERAPY NT Normal [facility] Albumin SerPl-mCncon 05-09-2 023 Albumin [Mass/Vol] 2.7 g/dL Low 3.2-5.0 [facility] Comment on above: Order Comment: Speci men Type: BLOOD SPECIMENOrdering Facility: [facility] Address: [address] [place] [address] Performed By: #### 1 751-7, 2777-1, 31295-7, 00576-2, 5195-3, 59267-5 ####[facility] LABORATORYCLIA [id number] [place] [address] [place] Basic metabolic 2000 panelon 01-02-2023 Anion gap [Moles/Vol] 7 mmol/L Normal 5-16 [facility] Comment on above: Order Comment: Speci men Type: BLOOD SPECIMENOrdering Facility: [facility] Address: [address] [place] [address] Performed By: #### 1 751-7, 2777-1, 44270-1, 16601-0, 5194-3, 59506-0 ####[facility] LABORATORYCLIA [id number] [place] [address] [place] Calcium [Mass/Vol] 8.7 mg/dL Normal 8.5-10.5 [facility] Comment on above: Order Comment: Speci men Type: BLOOD SPECIMENOrdering Facility: [facility] Address: [address] [place] [address] Performed By: #### 1 751-7, 2777-1, 25033-3, 68164-7, 5-3, 34161-3 ####[facility] LABORATORYCLIA [id number] [place] [address] [place] Chloride [Moles/Vol] 101 mmol/L Normal 98-107 [facility] Comment on above: Order Comment: Speci men Type: BLOOD SPECIMENOrdering Facility: [facility] Address: [address] [place] [address] Performed By: #### 1 751-7, 2777-1, 77458-0, 02822-8, 5-3, 81239-9 ####[facility] LABORATORYCLIA [id number] [place] [address] [place] CO2 [Moles/Vol] 28 mmol/L Normal 21-32 [facility] Comment on above: Order Comment: Kelsi huff Type: BLOOD SPECIMENOrdering Facility: [facility] Address: [address] [place] [address] Performed By: #### 1 751-7, 2777-1, 44195-4, 46875-4, 5195-3, 11678-3 ####[facility] LABORATORYCLIA [id number] [place] [address] [place] Creatinine [Mass/Vol] 5.79 mg/dL High 0.50-1.40 [facility] Comment on above: Order Comment: Speci men Type: BLOOD SPECIMENOrdering Facility: [facility] Address: [address] [place] [address] Result Comment: Macrina ents receiving either N-Acetylcysteine (NAC) or Metamizole prior to venipuncture, may have falsely depressed results. Performed By: #### 1 751-7, 2777-1, 65578-1, 10333-4, 5194-3, 90944-1 ####[facility] LABORATORYCLIA [id number] [place] [address] [place] ESTIMATED GLOMERULAR FILTRATION RATE 10 mL/min/1.73m??? Low >=60 [facility] Comment on above: Order Comment: Kelsi huff Type: BLOOD SPECIMENOrdering Facility: [facility] Address: [address] [place] [address] Result Comment: Caryl mated Glomerular Filtration Rate [...] GFR. Performed By: #### 1 751-7, 2777-1, 92508-4, 28615-5, 5-3, 50806-0 ####[facility] LABORATORYCLIA [id number] [place] [address] [place] Glucose [Mass/Vol] 111 mg/dL High 70-100 [facility] Comment on above: Order Comment: Speci men Type: BLOOD SPECIMENOrdering Facility: [facility] Address: [address] [place] [address] Result Comment: The [place] [employer] Association (ADA) provides guidance for cutoff [...] Standards of Medical Care in Diabetes 2016, [place] [employer]. Diabetes Care. 2016.39(Suppl 1).Results may be falsely elevated after the administration of Sulfapyridine.Results may be falsely depressed after the administration of Sulfasalazine. Performed By: #### 1 751-7, 2777-1, 46427-0, 66054-2, 5-3, 73496-9 ####[facility] LABORATORYCLIA [id number] [place] [id number] [place] Potassium [Moles/Vol] 5.7 mmol/L High 3.5-5.1 [facility] Comment on above: Order Comment: Speci men Type: BLOOD SPECIMENOrdering Facility: [facility] Address: [place] [address] Performed By: #### 1 751-7, 2777-1, 84285-2, 18378-4, 5194-3, 96228-2 ####[facility] LABORATORYCLIA [id number] [place] [address] [place] Sodium [Moles/Vol] 136 mmol/L Normal 136-145 [facility] Comment on above: Order Comment: Speci men Type: BLOOD SPECIMENOrdering Facility: [facility] Address: [address] [place] [address] Performed By: #### 1 751-7, 2777-1, 71519-2, 22586-9, 5195-3, 62119-9 ####[facility] LABORATORYCLIA [id number] [place] [id number] [facility] Urea nitrogen [Mass/Vol] 59 mg/dL High 03-21 [facility] Comment on above: Order Comment: Speci men Type: BLOOD SPECIMENOrdering Facility: [facility] Address: [address] [address] Performed By: #### 1 751-7, 2777-1, 65029-5, 52812-2, 5195-3, 31796-4 ####[facility] LABORATORYCLIA [id number] [address] CASE MANAGEMon 01-02-2023 CASE MANAGEM Normal [facility] CASE MGT INIT ASSESon 2022 CASE MGT INIT [facility] CBC panel Auto (Bld)on 01-02 Erythrocyte distribution width (RBC) [Ratio] 14.0 % Normal 11.5-15.0 [facility] Comment on above: Order Comment: Speci men Type: BLOOD SPECIMENOrdering Facility: [facility] Address: [address] [address] Performed By: #### 5 8410-2 ####[facility] LABORATORYCLIA [id number] [address] Hematocrit (Bld) [Volume fraction] 26.2 % Low 39.0-51.0 [facility] Comment on above: Order Comment: Speci men Type: BLOOD SPECIMENOrdering Facility: [facility] Address: [address] [address] Performed By: #### 5 8410-2 ####[facility] LABORATORYCLIA [id number] [address] [facility] Hemoglobin (Bld) [Mass/Vol] 8.5 g/dL Low 13.0-17.0 [facility] Comment on above: Order Comment: Speci men Type: BLOOD SPECIMENOrdering Facility: [facility] Address: [address] [address] Performed By: #### 5 8410-2 ####[facility] LABORATORYCLIA [id number] [address] MCH (RBC) [Entitic mass] 31.0 pg Normal 26.0-34.0 [facility] Comment on above: Order Comment: Speci men Type: BLOOD SPECIMENOrdering Facility: [facility] Address: [address] [place] [address] Performed By: #### 5 8410-2 ####[facility] LABORATORYCLIA [id number] [address] STATES OF [facility] MCHC (RBC) [Mass/Vol] 32.4 g/dL Normal 30.5-36.0 [facility] Comment on above: Order Comment: Speci men Type: BLOOD SPECIMENOrdering Facility: [facility] Address: [address] [place] [address] Performed By: #### 5 8410-2 ####[facility] LABORATORYCLIA [id number] [address] [place] MCV (RBC) [Entitic vol] 95.6 fL Normal 80.0-100.0 [facility] Comment on above: Order Comment: Speci men Type: BLOOD SPECIMENOrdering Facility: [facility] Address: [address] [address] Performed By: #### 5 8410-2 ####[facility] LABORATORYCLIA [id number] [address] Nucleated RBC (Bld) [#/Vol] 10*3/uL Normal <0.01 [facility] Comment on above: Order Comment: Speci men Type: BLOOD SPECIMENOrdering Facility: [facility] Address: [address] [place], [place] [address] Performed By: #### 5 8410-2 ####[facility] LABORATORYCLIA [id number] [place] [id number] [place] Platelet mean volume (Bld) [Entitic vol] 9.3 fL Normal 9.0-12.7 [facility] Comment on above: Order Comment: Speci men Type: BLOOD SPECIMENOrdering Facility: [facility] Address: [address] [address] Performed By: #### 5 8410-2 ####[facility] LABORATORYCLIA [id number] [place] [address] [place] Platelets (Bld) [#/Vol] 143 10*3/uL Low 150-400 [facility] Comment on above: Order Comment: Speci men Type: BLOOD SPECIMENOrdering Facility: [facility] Address: [address] [place] [address] Performed By: #### 5 8410-2 ####[facility] LABORATORYCLIA [id number] [place] [address] [place] RBC (Bld) [#/Vol] 2.74 10*6/uL Low 4.20-6.00 [facility] Comment on above: Order Comment: Speci men Type: BLOOD SPECIMENOrdering Facility: [facility] Address: [address] [place] [address] Performed By: #### 5 8410-2 ####[facility] LABORATORYCLIA [id number] [place] [address] [place] WBC (Bld) [#/Vol] 7.00 10*3/uL Normal 3.70-11.00 [facility] Comment on above: Order Comment: Speci men Type: BLOOD SPECIMENOrdering Facility: [facility] Address: [address] [place] [address] Performed By: #### 5 8410-2 ####[facility] LABORATORYCLIA [id number] [place] [id number] [facility] [place] CONSULT PROGon 01-02-2023 CONSULT PROG Normal [facility] HBV surface Ab Ql (S)on HBV surface Ab Qn (S) 1100.50 mIU/mL High 0.00-9.99 [facility] Comment on above: Order Comment: Speci daria Type: BLOOD SPECIMENOrdering Facility: [facility] Address: [address] [place] [address] Result Comment: STAT US OF IMMUNITYProtective Immunity: greater than or equal to 10 mIU/mL (Traceable to WHO International Reference Preparation)No Protective Immunity: less than 10 mIU/mLNote: The magnitude of the measured result above the cutoff is not indicative of the total amount of antibody present.WAIT FOR DILUTION IF > Performed By: #### 1 751-7, 2777-1, 50279-4, 16062-7, 5195-3, 34365-4 ####[facility] LABORATORYCLIA [id number] [place] [address] [place] HBV surface Ab Ser Qlon HBV surface Ab Ql (S) Positive Normal Positive [facility] Comment on above: Order Comment: Speci daria Type: BLOOD SPECIMENOrdering Facility: [facility] Address: [address] [place] [address] Result Comment: Thes e results are consistent with previous exposure and/or immunity to the hepatitis B virus antigen. Performed By: #### 1 751-7, 2777-1, 85304-4, 65089-2, 5-3, 02802-8 ####[facility] LABORATORYCLIA [id number] [place] [address] [place] HBV surface Ag Ser Qlon HBV surface Ag Ql (S) Non-Reactive Normal Equivo sabrina, Nonreactive [facility] Comment on above: Order Comment: Sam[facility] Type: BLOOD SPECIMENOrdering Facility: [facility] Address: [address] [place] [address] Result Comment: Resu lts were obtained with the [employer] IM IgM assay. Values obtained with different manufactures' assay methods may not be used interchangeably. Performed By: #### 1 751-7, 2777-1, 62773-6, 67289-3, 5-3, 17112-0 ####[facility] LABORATORYCLIA [id number] [place] [address] [place] Iron and Iron binding capaci ty panelon 01-02-2023 Iron [Mass/Vol] 12 ug/dL Low 65-175 [facility] Comment on above: Order Comment: Speci men Type: BLOOD SPECIMENOrdering Facility: [facility] Address: [address] [place] [address] Result Comment: Macrina ents treated with metal-binding drugs (e.g.deferoxamine) may have depressed iron values, as chelated iron may not properly react in the Siemens iron assay. Performed By: #### 1 751-7, 2777-1, 72006-9, 17887-4, 5-3, 84105-7 ####[facility] LABORATORYCLIA [id number] [address] [place] Iron binding capacity [Mass/Vol] 196 ug/dL Low 221-481 [facility] Comment on above: Order Comment: Speci men Type: BLOOD SPECIMENOrdering Facility: [facility] Address: [address] [place] [address] Performed By: #### 1 751-7, 2777-1, 51975-3, 36927-5, 5-3, 50861-8 ####[facility] LABORATORYCLIA [id number] [address] [place] Iron/TIBC [Molar ratio] 6.1 % Low 22.0-44.0 [facility] Comment on above: Order Comment: Speci men Type: BLOOD SPECIMENOrdering Facility: [facility] Address: [address] [place] [address] Performed By: #### 1 751-7, 2777-1, 92138-2, 15554-7, 5-3, 58295-7 ####[facility] LABORATORYCLIA [id number] [address] NURSING PROGon 01-02-2023 NURSING PROG [facility] Phosphate SerPl-mCncon 01-02 Phosphate [Mass/Vol] 5.5 mg/dL High 2.5-4.9 [facility] Comment on above: Order Comment: Speci men Type: BLOOD SPECIMENOrdering Facility: [facility] Address: [address] [place] [address] Result Comment: Elev ated m-protein (paraprotein) levels in the serum may be exhibited in patients with monoclonal gammopathies, causing falsely elevated inorganic phosphorus results. Performed By: #### 1 751-7, 2777-1, 39051-7, 56435-4, 5195-3, 04368-1 ####[facility] LABORATORYCLIA [id number] [address] THERAPY NTon 01-02-2023 THERAPY NT [facility] THERAPY NT [facility] XR CHEST 1V FRONTALon 2022 XR CHEST 1V FRONTAL [facility] ANES POSTPROC EVALon 023 ANES POSTPROC EVAL [facility] ANES PRE-OPon 01-01-2023 ANES PRE-OP [facility] ANTIBODY ID PATIENTon 2022 ANTIBODY IDENTIFIED Anti-C [facility] Comment on above: Order Comment: Speci men Type: BLOOD SPECIMENOrdering Facility: [facility] Address: [address] [place] [address] Result Comment: Anti -DAnti-E Performed By: #### T SCR, %[place], DAGT ####[facility] BLOOD BANKCLIA [id number] [address] Bacteria Spec Anaerobe Culto n 01-01-2023 Bacteria identified Anaer cx Nom (Unsp spec) CULTURE, ANAEROBE: Anaerobe culture reviewed, negative at day 6. [facility] Comment on above: Performed By: #### 6 35-3 ####[facility] LABORATORYCLIA [id number] [place] [address] [place] Bacteria identified Anaer cx Nom (Unsp spec) CULTURE, ANAEROBE: Anaerobe culture reviewed, negative at day 3. Normal [facility] Comment on above: Performed By: #### 6 35-3 ####[facility] LABORATORYCLIA [id number] [place] [address] [place] Bacteria identified Anaer cx Nom (Unsp spec) CULTURE, ANAEROBE: Anaerobe culture reviewed, negative at day 3. [facility] Comment on above: Performed By: #### 6 35-3 ####[facility] LABORATORYCLIA [id number] [place] [address] [place] Bacteria Tiss Culton 023 Bacteria identified Cx Nom (Tiss) CULTURE, TISSUE: No growth 5 days GRAM STAIN: Rare Polymorphonuclear leukocytes No organisms seen [facility] Comment on above: Performed By: #### 4 3408-4 ####[facility] LABORATORYCLIA [id number] [place] [address] [place] Bacteria Wnd Culton 01-02-20 23 Bacteria identified Cx Nom (Wound) CULTURE, WOUND: No growth 3 days GRAM STAIN: Few Polymorphonuclear leukocytes No organisms seen [facility] Comment on above: Performed By: #### 6 462-6 ####[facility] LABORATORYCLIA [id number] [place] [address] [place] Bacteria identified Cx Nom (Wound) CULTURE, WOUND: No growth 3 days GRAM STAIN: Few Polymorphonuclear leukocytes No organisms seen Normal [facility] Comment on above: Performed By: #### 6 462-6 ####[facility] LABORATORYCLIA [id number] [place] [address] [place] Basic metabolic 2000 panelon 01-01-2023 Anion gap [Moles/Vol] 9 mmol/L Normal -16 [facility] Comment on above: Order Comment: Speci men Type: BLOOD SPECIMENOrdering Facility: [facility] Address: [address] [place] [address] Performed By: #### 2 4321-2 ####[facility] LABORATORYCLIA [id number] [place] [address] [place] Calcium [Mass/Vol] 8.7 mg/dL Normal 8.5-10.5 [facility] Comment on above: Order Comment: Speci men Type: BLOOD SPECIMENOrdering Facility: [facility] Address: [address] [place] [address] Performed By: #### 2 4321-2 ####[facility] LABORATORYCLIA [id number] [place] [address] [place] Chloride [Moles/Vol] 101 mmol/L Normal 98-107 [facility] Comment on above: Order Comment: Speci men Type: BLOOD SPECIMENOrdering Facility: [facility] Address: [address] [place] [address] Performed By: #### 2 4321-2 ####[facility] LABORATORYCLIA [id number] [place] [address] [place] CO2 [Moles/Vol] 28 mmol/L Normal 21-32 [facility] Comment on above: Order Comment: Speci men Type: BLOOD SPECIMENOrdering Facility: [facility] Address: [address] [place] [address] Performed By: #### 2 4321-2 ####[facility] LABORATORYCLIA [id number] [place] [address] [place] Creatinine [Mass/Vol] 5.19 mg/dL High 0.50-1.40 [facility] Comment on above: Order Comment: Speci men Type: BLOOD SPECIMENOrdering Facility: [facility] Address: [address] [place] [address] Result Comment: Macrina ents receiving either N-Acetylcysteine (NAC) or Metamizole prior to venipuncture, may have falsely depressed results. Performed By: #### 2 4321-2 ####[facility] LABORATORYCLIA [id number] [place] [address] [place] ESTIMATED GLOMERULAR FILTRATION RATE 12 mL/min/1.73m??? Low >=60 [facility] Comment on above: Order Comment: Kelsi huff Type: BLOOD SPECIMENOrdering Facility: [facility] Address: [address] [id number] Result Comment: Caryl mated Glomerular Filtration Rate [...] actual GFR. Performed By: #### 2 4321-2 ####[facility] LABORATORYCLIA [id number] [place] [address] [place] Glucose [Mass/Vol] 113 mg/dL High 70-100 [facility] Comment on above: Order Comment: Kelsi huff Type: BLOOD SPECIMENOrdering Facility: [facility] Address: [address] [place] [address] Result Comment: The [place] Diabetes Association (ADA) provides guidance for cutoff [...] Standards of Medical Care in Diabetes 2016, [place] [employer]. Diabetes Care. 2016.39(Suppl 1).Results may be falsely elevated after the administration of Sulfapyridine.Results may be falsely depressed after the administration of Sulfasalazine. Performed By: #### 2 4321-2 ####[facility] LABORATORYCLIA [id number] [place] [address] [place] Potassium [Moles/Vol] 5.1 mmol/L Normal 3.5-5.1 [facility] Comment on above: Order Comment: Kelsi huff Type: BLOOD SPECIMENOrdering Facility: [facility] Address: [address] [address] Performed By: #### 2 4321-2 ####[facility] LABORATORYCLIA [id number] [place] [id number] [place] Sodium [Moles/Vol] 138 mmol/L Normal 136-145 [facility] Comment on above: Order Comment: Speci men Type: BLOOD SPECIMENOrdering Facility: [facility] Address: [address] [address] Performed By: #### 2 4321-2 ####[facility] LABORATORYCLIA [id number] [place] [address] [place] Urea nitrogen [Mass/Vol] 53 mg/dL High 7-26 [facility] Comment on above: Order Comment: Speci men Type: BLOOD SPECIMENOrdering Facility: [facility] Address: [address] [address] Performed By: #### 2 4321-2 ####[facility] LABORATORYCLIA [id number] [place] [address] [place] Anion gap [Moles/Vol] 7 mmol/L Normal 5-16 [facility] Comment on above: Order Comment: Speci men Type: BLOOD SPECIMENOrdering Facility: [facility] Address: [address] [address] Performed By: #### 2 4321-2 ####[facility] LABORATORYCLIA [id number] [place] [address] [place] Calcium [Mass/Vol] 9.1 mg/dL Normal 8.5-10.5 [facility] Comment on above: Order Comment: Speci men Type: BLOOD SPECIMENOrdering Facility: [facility] Address: [address] [address] Performed By: #### 2 4321-2 ####[facility] LABORATORYCLIA [id number] [place] [id number] [place] Chloride [Moles/Vol] 100 mmol/L Normal 98-107 [facility] Comment on above: Order Comment: Speci men Type: BLOOD SPECIMENOrdering Facility: [facility] Address: [address] [address] Performed By: #### 2 4321-2 ####[facility] LABORATORYCLIA [id number] [place] [address] [place] CO2 [Moles/Vol] 30 mmol/L Normal 21-32 [facility] Comment on above: Order Comment: Speci men Type: BLOOD SPECIMENOrdering Facility: [facility] Address: [address] [address] Performed By: #### 2 4321-2 ####[facility] LABORATORYCLIA [id number] [place] [address] [place] Creatinine [Mass/Vol] 5.13 mg/dL High 0.50-1.40 [facility] Comment on above: Order Comment: Speci men Type: BLOOD SPECIMENOrdering Facility: [facility] Address: [address] [place] [address] Result Comment: Macrina ents receiving either N-Acetylcysteine (NAC) or Metamizole prior to venipuncture, may have falsely depressed results. Performed By: #### 2 4321-2 ####[facility] LABORATORYIA [id number] [address] ESTIMATED GLOMERULAR FILTRATION RATE 12 mL/min/1.73m??? Low >=60 [facility] Comment on above: Order Comment: Speci men Type: BLOOD SPECIMENOrdering Facility: [facility] Address: [address] [place] [address] Result Comment: Caryl mated Glomerular Filtration Rate [...] actual GFR. Performed By: #### 2 4321-2 ####[facility] LABORATORYCLIA [id number] [place] [address] [place] Glucose [Mass/Vol] 88 mg/dL Normal 70-100 [facility] Comment on above: Order Comment: Kelsi men Type: BLOOD SPECIMENOrdering Facility: [facility] Address: [address] [place] [address] Result Comment: The [place] Diabetes Association (ADA) provides guidance for cutoff [...] Standards of Medical Care in Diabetes 2016, [place] [employer]. Diabetes Care. 2016.39(Suppl 1).Results may be falsely elevated after the administration of Sulfapyridine.Results may be falsely depressed after the administration of Sulfasalazine. Performed By: #### 2 4321-2 ####[facility] LABORATORYCLIA [id number] [place] [address] [place] Potassium [Moles/Vol] 5.7 mmol/L High 3.5-5.1 [facility] Comment on above: Order Comment: Kelsi daria Type: BLOOD SPECIMENOrdering Facility: [facility] Address: [address] [place] [address] Performed By: #### 2 4321-2 ####[facility] LABORATORYCLIA [id number] [place] [address] [place] Sodium [Moles/Vol] 137 mmol/L Normal 136-145 [facility] Comment on above: Order Comment: Kelsi huff Type: BLOOD SPECIMENOrdering Facility: [facility] Address: [address] [place] [address] Performed By: #### 2 4321-2 ####[facility] LABORATORYCLIA [id number] [place] [address] [place] Urea nitrogen [Mass/Vol] 53 mg/dL High 7- [facility] Comment on above: Order Comment: Speci men Type: BLOOD SPECIMENOrdering Facility: [facility] Address: [address] [place] [address] Performed By: #### 2 4321-2 ####[facility] LABORATORYCLIA [id number] [place] [address] [place] CBC W Auto Differential pane l (Bld)on 01-01-2023 Basophils (Bld) [#/Vol] 10*3/uL Normal <0.11 [facility] Comment on above: Order Comment: Speci men Type: BLOOD SPECIMENOrdering Facility: [facility] Address: [address] [place] [address] Performed By: #### 5 7021-8 ####[facility] LABORATORYCLIA [id number] [place] [address] [place] Basophils/100 WBC (Bld) 0.2 % Normal [facility] Comment on above: Order Comment: Speci men Type: BLOOD SPECIMENOrdering Facility: [facility] Address: [address] [place] [address] Performed By: #### 5 7021-8 ####[facility] LABORATORYCLIA [id number] [address] STATES [facility] Differential cell count method Nom (Bld) Auto Normal [facility] Comment on above: Order Comment: Speci men Type: BLOOD SPECIMENOrdering Facility: [facility] Address: [address] [address] Performed By: #### 5 7021-8 ####[facility] LABORATORYCLIA [id number] [place] [address] [place] Eosinophils (Bld) [#/Vol] 0.12 10*3/uL Normal <0.46 [facility] Comment on above: Order Comment: Speci men Type: BLOOD SPECIMENOrdering Facility: [facility] Address: [address] [place] [address] Performed By: #### 5 7021-8 ####[facility] LABORATORYCLIA [id number] [place] [address] [place] Eosinophils/100 WBC (Bld) 1.9 % Normal [facility] Comment on above: Order Comment: Speci men Type: BLOOD SPECIMENOrdering Facility: [facility] Address: [address] [place] [address] Performed By: #### 5 7021-8 ####[facility] LABORATORYCLIA [id number] [address] [place] Erythrocyte distribution width (RBC) [Ratio] 13.8 % Normal 11.5-15.0 [facility] Comment on above: Order Comment: Speci men Type: BLOOD SPECIMENOrdering Facility: [facility] Address: [address] [place] [address] Performed By: #### 5 7021-8 ####[facility] LABORATORYCLIA [id number] [address] [place] Hematocrit (Bld) [Volume fraction] 31.5 % Low 39.0-51.0 [facility] Comment on above: Order Comment: Speci men Type: BLOOD SPECIMENOrdering Facility: [facility] Address: [address] [place] [address] Performed By: #### 5 7021-8 ####[facility] LABORATORYCLIA [id number] [address] [place] Hemoglobin (Bld) [Mass/Vol] 10.8 g/dL Low 13.0-17.0 [facility] Comment on above: Order Comment: Speci men Type: BLOOD SPECIMENOrdering Facility: [facility] Address: [address] [place] [address] Performed By: #### 5 7021-8 ####[facility] LABORATORYCLIA [id number] [address] [place] Immature granulocytes (Bld) [#/Vol] 10*3/uL Normal <0.10 [facility] Comment on above: Order Comment: Speci men Type: BLOOD SPECIMENOrdering Facility: [facility] Address: [address] [address] Performed By: #### 5 7021-8 ####[facility] LABORATORYCLIA [id number] [address] [place] Immature granulocytes/100 WBC (Bld) 0.3 % Normal [facility] Comment on above: Order Comment: Speci men Type: BLOOD SPECIMENOrdering Facility: [facility] Address: [address] [place] [address] Performed By: #### 5 7021-8 ####[facility] LABORATORYCLIA [id number] [place] [address] [place] Lymphocytes (Bld) [#/Vol] 0.75 10*3/uL Low 1.00-4.00 [facility] Comment on above: Order Comment: Speci men Type: BLOOD SPECIMENOrdering Facility: [facility] Address: [address] [place] [address] Performed By: #### 5 7021-8 ####[facility] LABORATORYCLIA [id number] [address] [place] Lymphocytes/100 WBC (Bld) 12.0 % Normal [facility] Comment on above: Order Comment: Speci men Type: BLOOD SPECIMENOrdering Facility: [facility] Address: [address] [place] [address] Performed By: #### 5 7021-8 ####[facility] LABORATORYCLIA [id number] [place] [address] [place] MCH (RBC) [Entitic mass] 32.9 pg Normal 26.0-34.0 [facility] Comment on above: Order Comment: Speci men Type: BLOOD SPECIMENOrdering Facility: [facility] Address: [address] [place] [address] Performed By: #### 5 7021-8 ####[facility] LABORATORYCLIA [id number] [place] [address] [place] MCHC (RBC) [Mass/Vol] 34.3 g/dL Normal 30.5-36.0 [facility] Comment on above: Order Comment: Speci men Type: BLOOD SPECIMENOrdering Facility: [facility] Address: [address] [address] Performed By: #### 5 7021-8 ####[facility] LABORATORYCLIA [id number] [place] [address] [place] MCV (RBC) [Entitic vol] 96.0 fL Normal 80.0-100.0 [facility] Comment on above: Order Comment: Speci men Type: BLOOD SPECIMENOrdering Facility: [facility] Address: [address] [address] Performed By: #### 5 7021-8 ####[facility] LABORATORYCLIA [id number] [place] [address] [place] Monocytes (Bld) [#/Vol] 0.65 10*3/uL Normal <0.87 [facility] Comment on above: Order Comment: Speci men Type: BLOOD SPECIMENOrdering Facility: [facility] Address: [address] [address] Performed By: #### 5 7021-8 ####[facility] LABORATORYCLIA [id number] [address] [place] Monocytes/100 WBC (Bld) 10.4 % Normal [facility] Comment on above: Order Comment: Speci men Type: BLOOD SPECIMENOrdering Facility: [facility] Address: [address] [address] Performed By: #### 5 7021-8 ####[facility] LABORATORYCLIA [id number] [place] [address] [place] Neutrophils (Bld) [#/Vol] 4.70 10*3/uL Normal 1.45-7.50 [facility] Comment on above: Order Comment: Speci men Type: BLOOD SPECIMENOrdering Facility: [facility] Address: [address] [address] Performed By: #### 5 7021-8 ####[facility] LABORATORYCLIA [id number] [place] [address] [place] Neutrophils/100 WBC (Bld) 75.2 % Normal [facility] Comment on above: Order Comment: Speci men Type: BLOOD SPECIMENOrdering Facility: [facility] Address: [address] [place] [address] Performed By: #### 5 7021-8 ####[facility] LABORATORYCLIA [id number] [place] [address] [place] Nucleated RBC (Bld) [#/Vol] 10*3/uL Normal <0.01 [facility] Comment on above: Order Comment: Speci men Type: BLOOD SPECIMENOrdering Facility: [facility] Address: [address] [place] [address] Performed By: #### 5 7021-8 ####[facility] LABORATORYCLIA [id number] [place] [address] [place] Nucleated RBC/100 WBC (Bld) [Ratio] 0.0 /100 WBC Normal [facility] Comment on above: Order Comment: Speci men Type: BLOOD SPECIMENOrdering Facility: [facility] Address: [address] [place] [address] Performed By: #### 5 7021-8 ####[facility] LABORATORYCLIA [id number] [place] [address] [place] Platelet mean volume (Bld) [Entitic vol] 9.7 fL Normal 9.0-12.7 [facility] Comment on above: Order Comment: Speci men Type: BLOOD SPECIMENOrdering Facility: [facility] Address: [address] [place] [address] Performed By: #### 5 7021-8 ####[facility] LABORATORYCLIA [id number] [place] [address] [place] Platelets (Bld) [#/Vol] 174 10*3/uL Normal 150-400 [facility] Comment on above: Order Comment: Speci men Type: BLOOD SPECIMENOrdering Facility: [facility] Address: [address] [address] Performed By: #### 5 7021-8 ####[facility] LABORATORYCLIA [id number] [address] RBC (Bld) [#/Vol] 3.28 10*6/uL Low 4.20-6.00 [facility] Comment on above: Order Comment: Speci men Type: BLOOD SPECIMENOrdering Facility: [facility] Address: [address] [address] Performed By: #### 5 7021-8 ####[facility] LABORATORYCLIA [id number] [address] OF [facility] WBC (Bld) [#/Vol] 6.25 10*3/uL Normal 3.70-11.00 [facility] Comment on above: Order Comment: Speci men Type: BLOOD SPECIMENOrdering Facility: [facility] Address: [address] [address] Performed By: #### 5 7021-8 ####[facility] LABORATORYCLIA [id number] [address] CBC panel Auto (Bld)on 01-01 Erythrocyte distribution width (RBC) [Ratio] 14.0 % Normal 11.5-15.0 [facility] Comment on above: Order Comment: Speci men Type: BLOOD SPECIMENOrdering Facility: [facility] Address: [address] [address] Performed By: #### 5 8410-2 ####[facility] LABORATORYCLIA [id number] [address] Hematocrit (Bld) [Volume fraction] 26.8 % Low 39.0-51.0 [facility] Comment on above: Order Comment: Speci men Type: BLOOD SPECIMENOrdering Facility: [facility] Address: [address] [address] Performed By: #### 5 8410-2 ####[facility] LABORATORYCLIA [id number] [place] [address] [place] Hemoglobin (Bld) [Mass/Vol] 8.9 g/dL Low 13.0-17.0 [facility] Comment on above: Order Comment: Speci men Type: BLOOD SPECIMENOrdering Facility: [facility] Address: [address] [place] [address] Performed By: #### 5 8410-2 ####[facility] LABORATORYCLIA [id number] [address] [place] MCH (RBC) [Entitic mass] 31.7 pg Normal 26.0-34.0 [facility] Comment on above: Order Comment: Speci men Type: BLOOD SPECIMENOrdering Facility: [facility] Address: [address] [place] [address] Performed By: #### 5 8410-2 ####[facility] LABORATORYCLIA [id number] [address] [place] MCHC (RBC) [Mass/Vol] 33.2 g/dL Normal 30.5-36.0 [facility] Comment on above: Order Comment: Speci men Type: BLOOD SPECIMENOrdering Facility: [facility] Address: [address] [place] [address] Performed By: #### 5 8410-2 ####[facility] LABORATORYCLIA [id number] [address] [place] MCV (RBC) [Entitic vol] 95.4 fL Normal 80.0-100.0 [facility] Comment on above: Order Comment: Speci men Type: BLOOD SPECIMENOrdering Facility: [facility] Address: [address] [place] [address] Performed By: #### 5 8410-2 ####[facility] LABORATORYCLIA [id number] [address] [place] Nucleated RBC (Bld) [#/Vol] 10*3/uL Normal <0.01 [facility] Comment on above: Order Comment: Speci men Type: BLOOD SPECIMENOrdering Facility: [facility] Address: [address] [address] Performed By: #### 5 8410-2 ####[facility] LABORATORYCLIA [id number] [address] [place] Platelet mean volume (Bld) [Entitic vol] 9.2 fL Normal 9.0-12.7 [facility] Comment on above: Order Comment: Speci men Type: BLOOD SPECIMENOrdering Facility: [facility] Address: [address] Performed By: #### 5 8410-2 ####[facility] LABORATORYCLIA [id number] [place] [address] [place] Platelets (Bld) [#/Vol] 156 10*3/uL Normal 150-400 [facility] Comment on above: Order Comment: Speci men Type: BLOOD SPECIMENOrdering Facility: [facility] Address: [address] Performed By: #### 5 8410-2 ####[facility] LABORATORYCLIA [id number] [place] [address] [place] RBC (Bld) [#/Vol] 2.81 10*6/uL Low 4.20-6.00 [facility] Comment on above: Order Comment: Speci men Type: BLOOD SPECIMENOrdering Facility: [facility] Address: [address] Performed By: #### 5 8410-2 ####[facility] LABORATORYCLIA [id number] [place] [address] [place] WBC (Bld) [#/Vol] 6.88 10*3/uL Normal 3.70-11.00 [facility] Comment on above: Order Comment: Speci men Type: BLOOD SPECIMENOrdering Facility: [facility] Address: [address] [address] Performed By: #### 5 8410-2 ####[facility] LABORATORYCLIA [id number] [place] [id number] [place] CONSULTon 01-01-2023 CONSULT [facility] CONSULT Normal [facility] ROE DIRECTon 01-01-2023 DAGT, POLYSPECIFIC AHG Negative [facility] Comment on above: Order Comment: Speci men Type: BLOOD SPECIMENOrdering Facility: [facility] Address: [address] [place] [address] Performed By: #### T SCR, %[place], DAGT ####[facility] BLOOD BANKCLIA [id number] [place] [id number] [facility] [place] NURSING PROGon 01-01-2023 NURSING PROG [facility] OPERATIVE NOon 01-01-2023 OPERATIVE NO [facility] SURGICAL PATHOLOGYon 023 CASE REPORT [facility] Comment on above: Order Comment: Speci men Type: DEVICE SPECIMENOrdering Facility: [facility] Address: [address] [place] [address] Result Comment: Surg ical Pathology Report Case: [id number] Provider: Ramón Byrd MD Collected: 01/01/2023 09:43 AMOrdering Location: [facility] Surgery Received: 01/01/2023 12:12 PMPathologist: TIFFANY Saenzpecimen: HARDWARE, Rremoved hardware right distal femur, gross only Performed By: #### S ####[facility] LABORATORYCLIA [id number] [address] [place] CLINICAL HISTORY Normal [facility] Comment on above: Order Comment: Speci men Type: DEVICE SPECIMENOrdering Facility: [facility] Address: [address] [place], [place] [id number] Result Comment: Pre- op diagnosis:Mechanical breakdown of internal fixation device of right femur, initial encounter ([facility]) [T84.114A]Periprosthetic fracture around internal prosthetic right hip joint, sequela [M97.01XS]Presence of right artificial knee joint [Z96.651]Presence of right artificial hip joint [Z96.641] Performed By: #### S ####[facility] LABORATORYCLIA [id number] [address] FINAL DIAGNOSIS Normal [facility] Comment on above: Order Comment: Speci men Type: DEVICE SPECIMENOrdering Facility: [facility] Address: [address] [place] [address] Result Comment: A. R ight distal femur hardware, removal: - Orthopedic plate and screws, gross examination only. Performed By: #### S ####[facility] LABORATORYCLIA [id number] [address] FINAL PERFORMING LAB [facility] Comment on above: Order Comment: Speci men Type: DEVICE SPECIMENOrdering Facility: [facility] Address: [address] [place] [address] Result Comment: Diag nostic interpretation performed at [facility], [address] [place] [address] CLIA# [id number] Director: Jannet Rincon M.D. Performed By: #### S ####[facility] LABORATORYCLIA [id number] [address] GROSS DESCRIPTION A. HARDWARE Normal [facility] Comment on above: Order Comment: Speci men Type: DEVICE SPECIMENOrdering Facility: [facility] Address: [address] [place] [address] Result Comment: The specimen is received fresh labeled with the patient's name designated removed hardware right distal femur and consists of a 28.0 x 1.8 x 0.6 cm allred, metallic, fractured plate and 13 allred, metallic screws ranging from 1.3 to 6.0 cm in length x 0.5 cm in diameter. Gross examination only.Gross examination performed at [facility], [address] [place] [address] CLIA#[id number] 12:49 PM Performed By: #### S ####[facility] LABORATORYCLIA [id number] [address] MICROSCOPIC DESCRIPTION Gross examination only. [facility] Comment on above: Order Comment: Speci men Type: DEVICE SPECIMENOrdering Facility: [facility] Address: [address] [place] [address] Performed By: #### S ####[facility] LABORATORYCLIA [id number] [address] [place] TYPE + SCREENon 01-01-2023 ABO O [facility] Comment on above: Order Comment: Speci men Type: BLOOD SPECIMENOrdering Facility: [facility] Address: [address] [address] Performed By: #### T SCR, %[place], DAGT ####[facility] BLOOD BANKCLIA [id number] [address] HISTORICAL AB SCR STATUS Negative [facility] Comment on above: Order Comment: Speci men Type: BLOOD SPECIMENOrdering Facility: [facility] Address: [address] [address] Performed By: #### T SCR, %[place], DAGT ####[facility] BLOOD BANKCLIA [id number] [address] Rh Nom (Bld) Negative [facility] Comment on above: Order Comment: Speci men Type: BLOOD SPECIMENOrdering Facility: [facility] Address: [address] [place] [address] Performed By: #### T SCR, %[place], DAGT ####[facility] BLOOD BANKCLIA [id number] [address] [place] TYPE AND SCREEN EXPIRATION 01/04/2023 23:59 [facility] Comment on above: Order Comment: Speci men Type: BLOOD SPECIMENOrdering Facility: [facility] Address: [address] [place] [address] Performed By: #### T SCR, %[place], DAGT ####[facility] BLOOD BANKCLIA [id number] [place] [address] [place] XR FLUOROSCOPYon 01-01-2023 XR FLUOROSCOPY Normal [facility] ANES PREOPon 12-29-2022 ANES PREOP Normal [facility] CASE MANAGEMon 05-08-2022 CASE MANAGEM Normal [facility] CASE MANAGEM Normal [facility] CBC W Auto Differential pane l (Bld)on 05-08-2022 Basophils/100 WBC (Bld) 1.0 % Normal [facility] Comment on above: Order Comment: Speci men Type: BLOOD SPECIMENOrdering Facility: [facility] Address: [address] [place] [address] Performed By: #### 5 7021-8 ####[facility] LABORATORYCLIA [id number] [place] [address] [place] Differential cell count method Nom (Bld) Manual Normal [facility] Comment on above: Order Comment: Speci men Type: BLOOD SPECIMENOrdering Facility: [facility] Address: [address] [place] [address] Performed By: #### 5 7021-8 ####[facility] LABORATORYCLIA [id number] [place] [address] [place] Eosinophils (Bld) [#/Vol] 0.75 10*3/uL High <0.46 [facility] Comment on above: Order Comment: Speci men Type: BLOOD SPECIMENOrdering Facility: [facility] Address: [address] [place] [address] Performed By: #### 5 7021-8 ####[facility] LABORATORYCLIA [id number] [place] [address] [place] Eosinophils/100 WBC (Bld) 6.0 % Normal [facility] Comment on above: Order Comment: Speci men Type: BLOOD SPECIMENOrdering Facility: [facility] Address: [address] [place] [address] Performed By: #### 5 7021-8 ####[facility] LABORATORYCLIA [id number] [place] [address] [place] Erythrocyte distribution width (RBC) [Ratio] 15.9 % High 11.5-15.0 [facility] Comment on above: Order Comment: Speci men Type: BLOOD SPECIMENOrdering Facility: [facility] Address: [address] [place] [address] Performed By: #### 5 7021-8 ####[facility] LABORATORYCLIA [id number] [place] [address] [place] Hematocrit (Bld) [Volume fraction] 28.8 % Low 39.0-51.0 [facility] Comment on above: Order Comment: Speci men Type: BLOOD SPECIMENOrdering Facility: [facility] Address: [address] [place] [address] Performed By: #### 5 7021-8 ####[facility] LABORATORYCLIA [id number] [place] [address] [place] Hemoglobin (Bld) [Mass/Vol] 9.1 g/dL Low 13.0-17.0 [facility] Comment on above: Order Comment: Speci men Type: BLOOD SPECIMENOrdering Facility: [facility] Address: [address] [place] [address] Performed By: #### 5 7021-8 ####[facility] LABORATORYCLIA [id number] [place] [address] [place] Lymphocytes (Bld) [#/Vol] 0.50 10*3/uL Low 1.00-4.00 [facility] Comment on above: Order Comment: Speci men Type: BLOOD SPECIMENOrdering Facility: [facility] Address: [address] [place], [place] [address] Performed By: #### 5 7021-8 ####[facility] LABORATORYCLIA [id number] [place] [address] [place] Lymphocytes/100 WBC (Bld) 4.0 % Normal [facility] Comment on above: Order Comment: Speci men Type: BLOOD SPECIMENOrdering Facility: [facility] Address: [address] [place], [place] [address] Performed By: #### 5 7021-8 ####[facility] LABORATORYCLIA [id number] [address] [place] MCH (RBC) [Entitic mass] 30.8 pg Normal 26.0-34.0 [facility] Comment on above: Order Comment: Speci men Type: BLOOD SPECIMENOrdering Facility: [facility] Address: [address] [place] [address] Performed By: #### 5 7021-8 ####[facility] LABORATORYCLIA [id number] [address] [place] MCHC (RBC) [Mass/Vol] 31.6 g/dL Normal 30.5-36.0 [facility] Comment on above: Order Comment: Speci men Type: BLOOD SPECIMENOrdering Facility: [facility] Address: [address] [place] [address] Performed By: #### 5 7021-8 ####[facility] LABORATORYCLIA [id number] [address] [place] MCV (RBC) [Entitic vol] 97.6 fL Normal 80.0-100.0 [facility] Comment on above: Order Comment: Speci men Type: BLOOD SPECIMENOrdering Facility: [facility] Address: [address] [place] [address] Performed By: #### 5 7021-8 ####[facility] LABORATORYCLIA [id number] [place] [address] [place] MYELO% 1.0 % Normal [facility] Comment on above: Order Comment: Speci men Type: BLOOD SPECIMENOrdering Facility: [facility] Address: [address] [place] [address] Performed By: #### 5 7021-8 ####[facility] LABORATORYIA [id number] [place] [address] [place] Neutrophils (Bld) [#/Vol] 9.93 10*3/uL High 1.45-7.50 [facility] Comment on above: Order Comment: Speci men Type: BLOOD SPECIMENOrdering Facility: [facility] Address: [address] [place] [address] Performed By: #### 5 7021-8 ####[facility] LABORATORYCLIA [id number] [place] [address] [place] Neutrophils/100 WBC (Bld) 79.0 % Normal [facility] Comment on above: Order Comment: Speci men Type: BLOOD SPECIMENOrdering Facility: [facility] Address: [address] [place] [address] Performed By: #### 5 7021-8 ####[facility] LABORATORYCLIA [id number] [place] [address] [place] Nucleated RBC/100 WBC (Bld) [Ratio] 0.0 /100 WBC Normal [facility] Comment on above: Order Comment: Speci men Type: BLOOD SPECIMENOrdering Facility: [facility] Address: [address] [place] [address] Performed By: #### 5 7021-8 ####[facility] LABORATORYCLIA [id number] [place] [address] [place] Ovalocytes LM Ql (Bld) Few Normal [facility] Comment on above: Order Comment: Speci men Type: BLOOD SPECIMENOrdering Facility: [facility] Address: [address] [place] [address] Performed By: #### 5 7021-8 ####[facility] LABORATORYCLIA [id number] [place] [address] [place] PLATELET ESTIMATE Adequate Normal [facility] Comment on above: Order Comment: Speci men Type: BLOOD SPECIMENOrdering Facility: [facility] Address: [address] [place] [address] Performed By: #### 5 7021-8 ####[facility] LABORATORYCLIA [id number] [place] [address] [place] Platelet mean volume (Bld) [Entitic vol] 9.2 fL Normal 9.0-12.7 [facility] Comment on above: Order Comment: Speci men Type: BLOOD SPECIMENOrdering Facility: [facility] Address: [address] [place], [place] [address] Performed By: #### 5 7021-8 ####[facility] LABORATORYCLIA [id number] [address] [place] Platelets (Bld) [#/Vol] 373 10*3/uL Normal 150-400 [facility] Comment on above: Order Comment: Speci men Type: BLOOD SPECIMENOrdering Facility: [facility] Address: [address] [place], [place] [address] Performed By: #### 5 7021-8 ####[facility] LABORATORYCLIA [id number] [address] [place] Polychromasia LM Ql (Bld) Slight Normal [facility] Comment on above: Order Comment: Speci men Type: BLOOD SPECIMENOrdering Facility: [facility] Address: [address] [place], [place] [address] Performed By: #### 5 7021-8 ####[facility] LABORATORYCLIA [id number] [place] [address] [facility] [place] RBC (Bld) [#/Vol] 2.95 10*6/uL Low 4.20-6.00 [facility] Comment on above: Order Comment: Speci men Type: BLOOD SPECIMENOrdering Facility: [facility] Address: [address] [place], [place] [address] Performed By: #### 5 7021-8 ####[facility] LABORATORYCLIA [id number] [address] [place] RED CELL MORPH Reviewed: see result s of individual morphologies Normal [facility] Comment on above: Order Comment: Speci men Type: BLOOD SPECIMENOrdering Facility: [facility] Address: [address] [place], [place] [address] Performed By: #### 5 7021-8 ####[facility] LABORATORYCLIA [id number] [address] [place] Target cells LM Ql (Bld) Few Normal [facility] Comment on above: Order Comment: Speci men Type: BLOOD SPECIMENOrdering Facility: [facility] Address: [address] [address] Performed By: #### 5 7021-8 ####[facility] LABORATORYCLIA [id number] [address] [place] WAM - ABS BASO 0.13 k/uL High <0.11 [facility] Comment on above: Order Comment: Speci men Type: BLOOD SPECIMENOrdering Facility: [facility] Address: [address] [address] Performed By: #### 5 7021-8 ####[facility] LABORATORYCLIA [id number] [address] [place] WAM - ABS MONO 1.13 k/uL High <0.87 [facility] Comment on above: Order Comment: Speci men Type: BLOOD SPECIMENOrdering Facility: [facility] Address: [address] [address] Performed By: #### 5 7021-8 ####[facility] LABORATORYCLIA [id number] [address] [place] WAM - MONO% 9.0 % Normal [facility] Comment on above: Order Comment: Speci men Type: BLOOD SPECIMENOrdering Facility: [facility] Address: [address] Performed By: #### 5 7021-8 ####[facility] LABORATORYCLIA [id number] [address] [place] WAM ABSOLUTE NRBC <0.01 Normal <0.01 [facility] Comment on above: Order Comment: Speci men Type: BLOOD SPECIMENOrdering Facility: [facility] Address: [address] [address] Performed By: #### 5 7021-8 ####[facility] LABORATORYCLIA [id number] [place] [address] [place] WBC (Bld) [#/Vol] 12.57 10*3/uL High 3.70-11.00 [facility] Comment on above: Order Comment: Speci men Type: BLOOD SPECIMENOrdering Facility: [facility] Address: [address] [place] [address] Performed By: #### 5 7021-8 ####[facility] LABORATORYCLIA [id number] [place] [address] [place] CNDSon 05-08-2022 CNDS Normal [facility] THERAPY NTon 05-08-2022 THERAPY NT [facility] THERAPY NT [facility] CBC W Auto Differential pane l (Bld)on 05-07-2022 Basophils (Bld) [#/Vol] 0.04 10*3/uL Normal <0.11 [facility] Comment on above: Order Comment: Speci men Type: BLOOD SPECIMENOrdering Facility: [facility] Address: [address] [place] [address] Performed By: #### 5 7021-8 ####[facility] LABORATORYCLIA [id number] [address] [place] Basophils/100 WBC (Bld) 0.3 % Normal [facility] Comment on above: Order Comment: Speci men Type: BLOOD SPECIMENOrdering Facility: [facility] Address: [address] [place] [address] Performed By: #### 5 7021-8 ####[facility] LABORATORYCLIA [id number] [place] [address] [place] Differential cell count method Nom (Bld) Auto Normal [facility] Comment on above: Order Comment: Speci men Type: BLOOD SPECIMENOrdering Facility: [facility] Address: [address] [place] [address] Performed By: #### 5 7021-8 ####[facility] LABORATORYCLIA [id number] [place] [address] [place] Eosinophils (Bld) [#/Vol] 0.22 10*3/uL Normal <0.46 [facility] Comment on above: Order Comment: Speci men Type: BLOOD SPECIMENOrdering Facility: [facility] Address: [address] [place] [address] Performed By: #### 5 7021-8 ####[facility] LABORATORYCLIA [id number] [place] [address] [place] Eosinophils/100 WBC (Bld) 1.8 % Normal [facility] Comment on above: Order Comment: Speci men Type: BLOOD SPECIMENOrdering Facility: [facility] Address: [address] [place] [address] Performed By: #### 5 7021-8 ####[facility] LABORATORYCLIA [id number] [address] [place] Erythrocyte distribution width (RBC) [Ratio] 15.7 % High 11.5-15.0 [facility] Comment on above: Order Comment: Speci men Type: BLOOD SPECIMENOrdering Facility: [facility] Address: [address] [place] [address] Performed By: #### 5 7021-8 ####[facility] LABORATORYCLIA [id number] [place] [address] [place] Hematocrit (Bld) [Volume fraction] 26.9 % Low 39.0-51.0 [facility] Comment on above: Order Comment: Speci men Type: BLOOD SPECIMENOrdering Facility: [facility] Address: [address] [place], [place] [address] Performed By: #### 5 7021-8 ####[facility] LABORATORYCLIA [id number] [place] [address] [place] Hemoglobin (Bld) [Mass/Vol] 8.8 g/dL Low 13.0-17.0 [facility] Comment on above: Order Comment: Speci men Type: BLOOD SPECIMENOrdering Facility: [facility] Address: [address] [place], [place] [address] Performed By: #### 5 7021-8 ####[facility] LABORATORYCLIA [id number] [address] [place] IMMATURE GRAN % 0.9 % Normal [facility] Comment on above: Order Comment: Speci men Type: BLOOD SPECIMENOrdering Facility: [facility] Address: [address] [place] [address] Performed By: #### 5 7021-8 ####[facility] LABORATORYCLIA [id number] [address] [place] IMMATURE GRAN ABS 0.11 k/uL High <0.10 [facility] Comment on above: Order Comment: Speci men Type: BLOOD SPECIMENOrdering Facility: [facility] Address: [address] [place] [address] Performed By: #### 5 7021-8 ####[facility] LABORATORYCLIA [id number] [place] [address] [place] Lymphocytes (Bld) [#/Vol] 1.03 10*3/uL Normal 1.00-4.00 [facility] Comment on above: Order Comment: Speci men Type: BLOOD SPECIMENOrdering Facility: [facility] Address: [address] [place] [address] Performed By: #### 5 7021-8 ####[facility] LABORATORYCLIA [id number] [address] [place] Lymphocytes/100 WBC (Bld) 8.2 % Normal [facility] Comment on above: Order Comment: Speci men Type: BLOOD SPECIMENOrdering Facility: [facility] Address: [address] [place] [address] Performed By: #### 5 7021-8 ####[facility] LABORATORYCLIA [id number] [address] [place] MCH (RBC) [Entitic mass] 31.3 pg Normal 26.0-34.0 [facility] Comment on above: Order Comment: Speci men Type: BLOOD SPECIMENOrdering Facility: [facility] Address: [address] [place], [place] [address] Performed By: #### 5 7021-8 ####[facility] LABORATORYCLIA [id number] [place] [address] [place] MCHC (RBC) [Mass/Vol] 32.7 g/dL Normal 30.5-36.0 [facility] Comment on above: Order Comment: Speci men Type: BLOOD SPECIMENOrdering Facility: [facility] Address: [address] [place], [place] [address] Performed By: #### 5 7021-8 ####[facility] LABORATORYCLIA [id number] [place] [address] [place] MCV (RBC) [Entitic vol] 95.7 fL Normal 80.0-100.0 [facility] Comment on above: Order Comment: Speci men Type: BLOOD SPECIMENOrdering Facility: [facility] Address: [address] [place] [address] Performed By: #### 5 7021-8 ####[facility] LABORATORYCLIA [id number] [place] [address] [place] Monocytes (Bld) [#/Vol] 1.65 10*3/uL High <0.87 [facility] Comment on above: Order Comment: Speci men Type: BLOOD SPECIMENOrdering Facility: [facility] Address: [address] [place] [address] Performed By: #### 5 7021-8 ####[facility] LABORATORYCLIA [id number] [place] [address] [place] Monocytes/100 WBC (Bld) 13.2 % Normal [facility] Comment on above: Order Comment: Speci men Type: BLOOD SPECIMENOrdering Facility: [facility] Address: [address] [place], [place] [address] Performed By: #### 5 7021-8 ####[facility] LABORATORYCLIA [id number] [place] [address] [place] Neutrophils (Bld) [#/Vol] 9.45 10*3/uL High 1.45-7.50 [facility] Comment on above: Order Comment: Speci men Type: BLOOD SPECIMENOrdering Facility: [facility] Address: [address] [place] [address] Performed By: #### 5 7021-8 ####[facility] LABORATORYCLIA [id number] [place] [address] [place] Neutrophils/100 WBC (Bld) 75.6 % Normal [facility] Comment on above: Order Comment: Speci men Type: BLOOD SPECIMENOrdering Facility: [facility] Address: [address] [place] [address] Performed By: #### 5 7021-8 ####[facility] LABORATORYCLIA [id number] [place] [address] [place] Nucleated RBC (Bld) [#/Vol] 10*3/uL Normal <0.01 [facility] Comment on above: Order Comment: Speci men Type: BLOOD SPECIMENOrdering Facility: [facility] Address: [address] [place], [place] [address] Performed By: #### 5 7021-8 ####[facility] LABORATORYCLIA [id number] [address] [place] Nucleated RBC/100 WBC (Bld) [Ratio] 0.0 /100 WBC Normal [facility] Comment on above: Order Comment: Speci men Type: BLOOD SPECIMENOrdering Facility: [facility] Address: [address] [place], [place] [id number] Performed By: #### 5 7021-8 ####[facility] LABORATORYCLIA [id number] [place] [address] [place] Platelet mean volume (Bld) [Entitic vol] 9.2 fL Normal 9.0-12.7 [facility] Comment on above: Order Comment: Speci men Type: BLOOD SPECIMENOrdering Facility: [facility] Address: [address] [place], [place] [address] Performed By: #### 5 7021-8 ####[facility] LABORATORYCLIA [id number] [place] [id number] [facility] [place] Platelets (Bld) [#/Vol] 340 10*3/uL Normal 150-400 [facility] Comment on above: Order Comment: Speci men Type: BLOOD SPECIMENOrdering Facility: [facility] Address: [address] [place] [address] Performed By: #### 5 7021-8 ####[facility] LABORATORYCLIA [id number] [place] [address] [place] RBC (Bld) [#/Vol] 2.81 10*6/uL Low 4.20-6.00 [facility] Comment on above: Order Comment: Speci men Type: BLOOD SPECIMENOrdering Facility: [facility] Address: [address] [place] [address] Performed By: #### 5 7021-8 ####[facility] LABORATORYCLIA [id number] [address] OF [facility] WBC (Bld) [#/Vol] 12.50 10*3/uL High 3.70-11.00 [facility] Comment on above: Order Comment: Speci men Type: BLOOD SPECIMENOrdering Facility: [facility] Address: [address] [place] [address] Performed By: #### 5 7021-8 ####[facility] LABORATORYCLIA [id number] [address] [place] CONSULTon 05-07-2022 CONSULT Normal [facility] CONSULT PROGon 05-07-2022 CONSULT PROG Normal [facility] Basic metabolic 2000 panelon 05-06-2022 Anion gap [Moles/Vol] 9 mmol/L Normal 5-16 [facility] Comment on above: Order Comment: Speci men Type: BLOOD SPECIMENOrdering Facility: [facility] Address: [address] [place] [address] Performed By: #### 2 4321-2, 50321-8 ####[facility] LABORATORYCLIA [id number] [place] [address] [place] Calcium [Mass/Vol] 8.3 mg/dL Low 8.5-10.5 [facility] Comment on above: Order Comment: Speci men Type: BLOOD SPECIMENOrdering Facility: [facility] Address: [address] [place] [address] Performed By: #### 2 4321-2, ####[facility] LABORATORYCLIA [id number] [place] [address] [place] Chloride [Moles/Vol] 96 mmol/L Low 98-107 [facility] Comment on above: Order Comment: Speci men Type: BLOOD SPECIMENOrdering Facility: [facility] Address: [address] [place] [address] Performed By: #### 2 43212, ####[facility] LABORATORYCLIA [id number] [place] [address] [place] CO2 [Moles/Vol] 27 mmol/L Normal 21-32 [facility] Comment on above: Order Comment: Speci men Type: BLOOD SPECIMENOrdering Facility: [facility] Address: [address] [place] [address] Performed By: #### 2 43212, ####[facility] LABORATORYCLIA [id number] [place] [address] [place] Creatinine [Mass/Vol] 6.40 mg/dL High 0.50-1.40 [facility] Comment on above: Order Comment: Speci men Type: BLOOD SPECIMENOrdering Facility: [facility] Address: [address] [place] [address] Result Comment: Macrina ents receiving either N-Acetylcysteine (NAC) or Metamizole prior to venipuncture, may have falsely depressed results. Performed By: #### 2 432-2, ####[facility] LABORATORYCLIA [id number] [place] [id number] [place] ESTIMATED GLOMERULAR FILTRATION RATE 9 mL/min/1.73m??? Low >=60 [facility] Comment on above: Order Comment: Kelsi huff Type: BLOOD SPECIMENOrdering Facility: [facility] Address: [address] [place], [place] [address] Result Comment: Caryl mated Glomerular Filtration Rate [...] actual GFR. Performed By: #### 2 4321-, ####[facility] LABORATORYCLIA [id number] [place] [id number] [place] Glucose [Mass/Vol] 129 mg/dL High 70-100 [facility] Comment on above: Order Comment: Kelsi huff Type: BLOOD SPECIMENOrdering Facility: [facility] Address: [address] [place], [place] [address] Result Comment: The [place] [employer] Association (ADA) provides guidance for cutoff [...] Standards of Medical Care in Diabetes 2016, [place] [employer]. Diabetes Care. 2016.39(Suppl 1).Results may be falsely elevated after the administration of Sulfapyridine.Results may be falsely depressed after the administration of Sulfasalazine. Performed By: #### 2 4321-2, ####[facility] LABORATORYCLIA [id number] [place] [id number] [place] Potassium [Moles/Vol] 3.8 mmol/L Normal 3.5-5.1 [facility] Comment on above: Order Comment: Speci men Type: BLOOD SPECIMENOrdering Facility: [facility] Address: [address] [place] [address] Result Comment: Slig ht Hemolysis, Result may be affected. Performed By: #### 2 4321-2, ####[facility] LABORATORYCLIA [id number] [place] [address] [place] Sodium [Moles/Vol] 132 mmol/L Low 136-145 [facility] Comment on above: Order Comment: Speci men Type: BLOOD SPECIMENOrdering Facility: [facility] Address: [address] [place] [address] Performed By: #### 2 4321-2, 60287-3 ####[facility] LABORATORYCLIA [id number] [place] [address] [place] Urea nitrogen [Mass/Vol] 54 mg/dL High 7-26 [facility] Comment on above: Order Comment: Speci men Type: BLOOD SPECIMENOrdering Facility: [facility] Address: [address] [place] [address] Performed By: #### 2 4321-2, ####[facility] LABORATORYCLIA [id number] [place] [address] [place] CBC W Auto Differential pane l (Bld)on 05-06-2022 Basophils (Bld) [#/Vol] 0.03 10*3/uL Normal <0.11 [facility] Comment on above: Order Comment: Speci men Type: BLOOD SPECIMENOrdering Facility: [facility] Address: [address] [place] [address] Performed By: #### 5 7021-8 ####[facility] LABORATORYCLIA [id number] [address] [place] Basophils/100 WBC (Bld) 0.2 % Normal [facility] Comment on above: Order Comment: Speci men Type: BLOOD SPECIMENOrdering Facility: [facility] Address: [address] [place] [address] Performed By: #### 5 7021-8 ####[facility] LABORATORYCLIA [id number] [address] [place] Differential cell count method Nom (Bld) Auto Normal [facility] Comment on above: Order Comment: Speci men Type: BLOOD SPECIMENOrdering Facility: [facility] Address: [address] [place] [address] Performed By: #### 5 7021-8 ####[facility] LABORATORYCLIA [id number] [place] [address] [place] Eosinophils (Bld) [#/Vol] 0.32 10*3/uL Normal <0.46 [facility] Comment on above: Order Comment: Speci men Type: BLOOD SPECIMENOrdering Facility: [facility] Address: [address] [place] [address] Performed By: #### 5 7021-8 ####[facility] LABORATORYCLIA [id number] [address] [place] Eosinophils/100 WBC (Bld) 1.9 % Normal [facility] Comment on above: Order Comment: Speci men Type: BLOOD SPECIMENOrdering Facility: [facility] Address: [address] [place] [address] Performed By: #### 5 7021-8 ####[facility] LABORATORYCLIA [id number] [address] [place] Erythrocyte distribution width (RBC) [Ratio] 15.7 % High 11.5-15.0 [facility] Comment on above: Order Comment: Speci men Type: BLOOD SPECIMENOrdering Facility: [facility] Address: [address] [place] [address] Performed By: #### 5 7021-8 ####[facility] LABORATORYCLIA [id number] [place] [address] [place] Hematocrit (Bld) [Volume fraction] 27.9 % Low 39.0-51.0 [facility] Comment on above: Order Comment: Speci men Type: BLOOD SPECIMENOrdering Facility: [facility] Address: [address] [place] [address] Performed By: #### 5 7021-8 ####[facility] LABORATORYCLIA [id number] [address] [place] Hemoglobin (Bld) [Mass/Vol] 9.0 g/dL Low 13.0-17.0 [facility] Comment on above: Order Comment: Speci men Type: BLOOD SPECIMENOrdering Facility: [facility] Address: [address] [place] [address] Performed By: #### 5 7021-8 ####[facility] LABORATORYCLIA [id number] [place] [address] [place] IMMATURE GRAN % 1.0 % Normal [facility] Comment on above: Order Comment: Speci men Type: BLOOD SPECIMENOrdering Facility: [facility] Address: [address] [place] [address] Performed By: #### 5 7021-8 ####[facility] LABORATORYCLIA [id number] [place] [address] [place] IMMATURE GRAN ABS 0.17 k/uL High <0.10 [facility] Comment on above: Order Comment: Speci men Type: BLOOD SPECIMENOrdering Facility: [facility] Address: [address] [place] [address] Performed By: #### 5 7021-8 ####[facility] LABORATORYCLIA [id number] [address] [place] Lymphocytes (Bld) [#/Vol] 1.06 10*3/uL Normal 1.00-4.00 [facility] Comment on above: Order Comment: Speci men Type: BLOOD SPECIMENOrdering Facility: [facility] Address: [address] [place] [address] Performed By: #### 5 7021-8 ####[facility] LABORATORYCLIA [id number] [place] [address] [place] Lymphocytes/100 WBC (Bld) 6.2 % Normal [facility] Comment on above: Order Comment: Speci men Type: BLOOD SPECIMENOrdering Facility: [facility] Address: [address] [place] [address] Performed By: #### 5 7021-8 ####[facility] LABORATORYCLIA [id number] [place] [address] [place] MCH (RBC) [Entitic mass] 31.0 pg Normal 26.0-34.0 [facility] Comment on above: Order Comment: Speci men Type: BLOOD SPECIMENOrdering Facility: [facility] Address: [address] [place] [address] Performed By: #### 5 7021-8 ####[facility] LABORATORYCLIA [id number] [place] [address] [place] MCHC (RBC) [Mass/Vol] 32.3 g/dL Normal 30.5-36.0 [facility] Comment on above: Order Comment: Speci men Type: BLOOD SPECIMENOrdering Facility: [facility] Address: [address] [place] [address] Performed By: #### 5 7021-8 ####[facility] LABORATORYCLIA [id number] [place] [address] [place] MCV (RBC) [Entitic vol] 96.2 fL Normal 80.0-100.0 [facility] Comment on above: Order Comment: Speci men Type: BLOOD SPECIMENOrdering Facility: [facility] Address: [address] [place] [address] Performed By: #### 5 7021-8 ####[facility] LABORATORYCLIA [id number] [place] [address] [place] Monocytes (Bld) [#/Vol] 1.62 10*3/uL High <0.87 [facility] Comment on above: Order Comment: Speci men Type: BLOOD SPECIMENOrdering Facility: [facility] Address: [address] Performed By: #### 5 7021-8 ####[facility] LABORATORYCLIA [id number] [place] [address] [place] Monocytes/100 WBC (Bld) 9.4 % Normal [facility] Comment on above: Order Comment: Speci men Type: BLOOD SPECIMENOrdering Facility: [facility] Address: [address] [place], [place] [address] Performed By: #### 5 7021-8 ####[facility] LABORATORYCLIA [id number] [place] [address] [place] Neutrophils (Bld) [#/Vol] 13.96 10*3/uL High 1.45-7.50 [facility] Comment on above: Order Comment: Speci men Type: BLOOD SPECIMENOrdering Facility: [facility] Address: [address] [place] [address] Performed By: #### 5 7021-8 ####[facility] LABORATORYCLIA [id number] [place] [address] [place] Neutrophils/100 WBC (Bld) 81.3 % Normal [facility] Comment on above: Order Comment: Speci men Type: BLOOD SPECIMENOrdering Facility: [facility] Address: [address] [place], [place] [address] Performed By: #### 5 7021-8 ####[facility] LABORATORYCLIA [id number] [place] [address] [place] Nucleated RBC (Bld) [#/Vol] 10*3/uL Normal <0.01 [facility] Comment on above: Order Comment: Speci men Type: BLOOD SPECIMENOrdering Facility: [facility] Address: [address] [place], [place] [address] Performed By: #### 5 7021-8 ####[facility] LABORATORYCLIA [id number] [place] [address] [place] Nucleated RBC/100 WBC (Bld) [Ratio] 0.0 /100 WBC Normal [facility] Comment on above: Order Comment: Speci men Type: BLOOD SPECIMENOrdering Facility: [facility] Address: [address] [place], [place] [address] Performed By: #### 5 7021-8 ####[facility] LABORATORYCLIA [id number] [place] [address] [facility] [place] Platelet mean volume (Bld) [Entitic vol] 9.1 fL Normal 9.0-12.7 [facility] Comment on above: Order Comment: Speci men Type: BLOOD SPECIMENOrdering Facility: [facility] Address: [address] [place], [place] [address] Performed By: #### 5 7021-8 ####[facility] LABORATORYCLIA [id number] [place] [address] [place] Platelets (Bld) [#/Vol] 325 10*3/uL Normal 150-400 [facility] Comment on above: Order Comment: Speci men Type: BLOOD SPECIMENOrdering Facility: [facility] Address: [address] [place], [place] [address] Performed By: #### 5 7021-8 ####[facility] LABORATORYCLIA [id number] [place] [address] [place] RBC (Bld) [#/Vol] 2.90 10*6/uL Low 4.20-6.00 [facility] Comment on above: Order Comment: Speci men Type: BLOOD SPECIMENOrdering Facility: [facility] Address: [address] [place], [place] [address] Performed By: #### 5 7021-8 ####[facility] LABORATORYCLIA [id number] [place] [address] [place] WBC (Bld) [#/Vol] 17.16 10*3/uL High 3.70-11.00 [facility] Comment on above: Order Comment: Speci men Type: BLOOD SPECIMENOrdering Facility: [facility] Address: [address] [place], [place] [address] Performed By: #### 5 7021-8 ####[facility] LABORATORYCLIA [id number] [place] [address] [place] CONSULT PROGon 05-06-2022 CONSULT PROG Normal [facility] Magnesium SerPl-mCncon 05-06 Magnesium [Mass/Vol] 1.9 mg/dL Normal 1.6-2.6 [facility] Comment on above: Order Comment: Speci men Type: BLOOD SPECIMENOrdering Facility: [facility] Address: [address] [place] [address] Performed By: #### 2 4321-2, 90374-4 ####[facility] LABORATORYCLIA [id number] [address] [place] NURSING PROGon 05-06-2022 NURSING PRO Normal [facility] SARS-CoV-2 RNA Resp Ql AMADOU+p robeon 05-06-2022 SARS-CoV-2 (COVID-19) RNA AMADOU+probe Ql (Resp) SARS-CoV-2 (Agent of COVID-19) Not Detected by RT-PCR or equivalent method. Normal Not Detected [facility] Comment on above: Order Comment: Speci men Type: SWAB OF INTERNAL NOSEOrdering Facility: [facility] Address: [address] [place] [address] Result Comment: This test has been authorized by FDA under an Emergency Use Authorization (EUA). Performed By: #### 9 4500-6 ####[facility] LABORATORYCLIA [id number] [address] [place] ALLIED HEALTHon 05-05-2022 ALLIED HEALTH Normal [facility] Basic metabolic 2000 panelon 05-05-2022 Anion gap [Moles/Vol] 10 mmol/L Normal 5-16 [facility] Comment on above: Order Comment: Speci men Type: BLOOD SPECIMENOrdering Facility: [facility] Address: [address] [place] [address] Performed By: #### 2 4321-2, 56243-3, 64250-0 ####[facility] LABORATORYCLIA [id number] [place] [address] [place] Calcium [Mass/Vol] 8.6 mg/dL Normal 8.5-10.5 [facility] Comment on above: Order Comment: Speci men Type: BLOOD SPECIMENOrdering Facility: [facility] Address: [address] [place] [address] Performed By: #### 2 4321-2, 43477-7, 58257-7 ####[facility] LABORATORYCLIA [id number] [place] [address] [place] Chloride [Moles/Vol] 97 mmol/L Low 98-107 [facility] Comment on above: Order Comment: Speci men Type: BLOOD SPECIMENOrdering Facility: [facility] Address: [address] [place] [address] Performed By: #### 2 4321-2, 34400-2, 95495-7 ####[facility] LABORATORYCLIA [id number] [place] [address] [place] CO2 [Moles/Vol] 29 mmol/L Normal 21-32 [facility] Comment on above: Order Comment: Speci men Type: BLOOD SPECIMENOrdering Facility: [facility] Address: [address] [place] [address] Performed By: #### 2 4321-2, 81169-5, 89957-2 ####[facility] LABORATORYCLIA [id number] [place] [address] [place] Creatinine [Mass/Vol] 5.02 mg/dL High 0.50-1.40 [facility] Comment on above: Order Comment: Speci men Type: BLOOD SPECIMENOrdering Facility: [facility] Address: [address] [place] [address] Result Comment: Macrina ents receiving either N-Acetylcysteine (NAC) or Metamizole prior to venipuncture, may have falsely depressed results. Performed By: #### 2 4321-2, 65275-4, 21737-9 ####[facility] LABORATORYCLIA [id number] [address] [place] ESTIMATED GLOMERULAR FILTRATION RATE 12 mL/min/1.73m??? Low >=60 [facility] Comment on above: Order Comment: Kelsi huff Type: BLOOD SPECIMENOrdering Facility: [facility] Address: [address] [place], [place] [address] Result Comment: Caryl mated Glomerular Filtration Rate [...] actual GFR. Performed By: #### 2 4321-2, 21742-4, 87146-7 ####[facility] LABORATORYCLIA [id number] [address] [place] Glucose [Mass/Vol] 115 mg/dL High 70-100 [facility] Comment on above: Order Comment: Kelsi huff Type: BLOOD SPECIMENOrdering Facility: [facility] Address: [address] [place] [address] Result Comment: The [place] [employer] (ADA) provides guidance for cutoff [...] Standards of Medical Care in Diabetes 2016, [place] [employer]. Diabetes Care. 2016.39(Suppl 1).Results may be falsely elevated after the administration of Sulfapyridine.Results may be falsely depressed after the administration of Sulfasalazine. Performed By: #### 2 4321-2, 05185-0, 78061-5 ####[facility] LABORATORYCLIA [id number] [place] [address] [place] Potassium [Moles/Vol] 4.1 mmol/L Normal 3.5-5.1 [facility] Comment on above: Order Comment: Speci men Type: BLOOD SPECIMENOrdering Facility: [facility] Address: [address] [place] [address] Performed By: #### 2 4321-2, 35606-3, 90525-6 ####[facility] LABORATORYCLIA [id number] [place] [id number] [place] Sodium [Moles/Vol] 136 mmol/L Normal 136-145 [facility] Comment on above: Order Comment: Speci men Type: BLOOD SPECIMENOrdering Facility: [facility] Address: [address] [place] [address] Performed By: #### 2 4321-2, 26093-2, 49107-4 ####[facility] LABORATORYCLIA [id number] [place] [id number] [place] Urea nitrogen [Mass/Vol] 43 mg/dL High 7-26 [facility] Comment on above: Order Comment: Speci men Type: BLOOD SPECIMENOrdering Facility: [facility] Address: [address] [place] [address] Performed By: #### 2 4321-2, 77223-4, 17891-1 ####[facility] LABORATORYCLIA [id number] [place] [id number] [place] CASE MANAGEMon 05-05-2022 CASE MANAGEM Normal [facility] CBC W Auto Differential pane l (Bld)on 05-05-2022 Band form neutrophils/100 WBC (Bld) 1.0 % [facility] Comment on above: Order Comment: Speci men Type: BLOOD SPECIMENOrdering Facility: [facility] Address: [address] [place] [address] Performed By: #### 5 7021-8 ####[facility] LABORATORYCLIA [id number] [place] [id number] [place] Basophils/100 WBC (Bld) 1.0 % Normal [facility] Comment on above: Order Comment: Speci men Type: BLOOD SPECIMENOrdering Facility: [facility] Address: [address] [place] [address] Performed By: #### 5 7021-8 ####[facility] LABORATORYCLIA [id number] [place] BLAST% 0.0 % Normal <=0.0 [facility] Comment on above: Order Comment: Speci men Type: BLOOD SPECIMENOrdering Facility: [facility] Address: [address] [place] [address] Performed By: #### 5 7021-8 ####[facility] LABORATORYCLIA [id number] [address] Differential cell count method Nom (Bld) Manual Normal [facility] Comment on above: Order Comment: Speci men Type: BLOOD SPECIMENOrdering Facility: [facility] Address: [address] [place] [address] Performed By: #### 5 7021-8 ####[facility] LABORATORYCLIA [id number] [address] [place] Eosinophils (Bld) [#/Vol] 0.00 10*3/uL Normal <0.46 [facility] Comment on above: Order Comment: Speci men Type: BLOOD SPECIMENOrdering Facility: [facility] Address: [address] [place] [address] Performed By: #### 5 7021-8 ####[facility] LABORATORYCLIA [id number] [address] Eosinophils/100 WBC (Bld) 0.0 % Normal [facility] Comment on above: Order Comment: Speci men Type: BLOOD SPECIMENOrdering Facility: [facility] Address: [address] [place] [address] Performed By: #### 5 7021-8 ####[facility] LABORATORYCLIA [id number] [address] [place] Erythrocyte distribution width (RBC) [Ratio] 15.9 % High 11.5-15.0 [facility] Comment on above: Order Comment: Speci men Type: BLOOD SPECIMENOrdering Facility: [facility] Address: [address] [place] [address] Performed By: #### 5 7021-8 ####[facility] LABORATORYCLIA [id number] [place] [address] [place] Hematocrit (Bld) [Volume fraction] 27.8 % Low 39.0-51.0 [facility] Comment on above: Order Comment: Speci men Type: BLOOD SPECIMENOrdering Facility: [facility] Address: [address] [place] [address] Performed By: #### 5 7021-8 ####[facility] LABORATORYCLIA [id number] [place] [address] [place] Hemoglobin (Bld) [Mass/Vol] 8.9 g/dL Low 13.0-17.0 [facility] Comment on above: Order Comment: Speci men Type: BLOOD SPECIMENOrdering Facility: [facility] Address: [address] [place] [address] Performed By: #### 5 7021-8 ####[facility] LABORATORYCLIA [id number] [place] [address] [place] Lymphocytes (Bld) [#/Vol] 1.71 10*3/uL Normal 1.00-4.00 [facility] Comment on above: Order Comment: Speci men Type: BLOOD SPECIMENOrdering Facility: [facility] Address: [address] [place], [place] [address] Performed By: #### 5 7021-8 ####[facility] LABORATORYCLIA [id number] [address] [place] Lymphocytes/100 WBC (Bld) 7.0 % Normal [facility] Comment on above: Order Comment: Speci men Type: BLOOD SPECIMENOrdering Facility: [facility] Address: [address] [place], [place] [address] Performed By: #### 5 7021-8 ####[facility] LABORATORYCLIA [id number] [address] Lymphocytes/100 WBC (Bld) 0.0 % Normal [facility] Comment on above: Order Comment: Speci men Type: BLOOD SPECIMENOrdering Facility: [facility] Address: [address] [place] [address] Performed By: #### 5 7021-8 ####[facility] LABORATORYCLIA [id number] [address] LYMPHOMA CELL 0.0 % Normal [facility] Comment on above: Order Comment: Speci men Type: BLOOD SPECIMENOrdering Facility: [facility] Address: [address] [place] [address] Performed By: #### 5 7021-8 ####[facility] LABORATORYCLIA [id number] [address] MCH (RBC) [Entitic mass] 31.1 pg Normal 26.0-34.0 [facility] Comment on above: Order Comment: Speci men Type: BLOOD SPECIMENOrdering Facility: [facility] Address: [address] [place] [address] Performed By: #### 5 7021-8 ####[facility] LABORATORYCLIA [id number] [address] MCHC (RBC) [Mass/Vol] 32.0 g/dL Normal 30.5-36.0 [facility] Comment on above: Order Comment: Speci men Type: BLOOD SPECIMENOrdering Facility: [facility] Address: [address] [place] [address] Performed By: #### 5 7021-8 ####[facility] LABORATORYCLIA [id number] [address] OF [facility] MCV (RBC) [Entitic vol] 97.2 fL Normal 80.0-100.0 [facility] Comment on above: Order Comment: Speci men Type: BLOOD SPECIMENOrdering Facility: [facility] Address: [address] [place] [address] Performed By: #### 5 7021-8 ####[facility] LABORATORYCLIA [id number] [address] [place] MEGAKARYOCYTIC FRAGMENTS 0.0 /100 WBC Normal [facility] Comment on above: Order Comment: Speci men Type: BLOOD SPECIMENOrdering Facility: [facility] Address: [address] [place] [address] Performed By: #### 5 7021-8 ####[facility] LABORATORYCLIA [id number] [address] [place] Metamyelocytes/100 WBC (Bld) 0.0 % Normal [facility] Comment on above: Order Comment: Speci men Type: BLOOD SPECIMENOrdering Facility: [facility] Address: [address] [place] [address] Performed By: #### 5 7021-8 ####[facility] LABORATORYCLIA [id number] [place] [address] [place] MYELO% 0.0 % Normal [facility] Comment on above: Order Comment: Speci men Type: BLOOD SPECIMENOrdering Facility: [facility] Address: [address] [place] [address] Performed By: #### 5 7021-8 ####[facility] LABORATORYCLIA [id number] [place] [address] [place] Neutrophils (Bld) [#/Vol] 21.45 10*3/uL High 1.45-7.50 [facility] Comment on above: Order Comment: Speci men Type: BLOOD SPECIMENOrdering Facility: [facility] Address: [address] [place] [address] Performed By: #### 5 7021-8 ####[facility] LABORATORYCLIA [id number] [place] [address] [place] Neutrophils/100 WBC (Bld) 87.0 % Normal [facility] Comment on above: Order Comment: Speci men Type: BLOOD SPECIMENOrdering Facility: [facility] Address: [address] [address] Performed By: #### 5 7021-8 ####[facility] LABORATORYCLIA [id number] [address] [place] Nucleated RBC/100 WBC (Bld) [Ratio] 0.0 /100 WBC Normal [facility] Comment on above: Order Comment: Speci men Type: BLOOD SPECIMENOrdering Facility: [facility] Address: [address] [place] [address] Performed By: #### 5 7021-8 ####[facility] LABORATORYCLIA [id number] [address] OTHER CELLS 0.0 % Normal [facility] Comment on above: Order Comment: Speci men Type: BLOOD SPECIMENOrdering Facility: [facility] Address: [address] [place] [address] Performed By: #### 5 7021-8 ####[facility] LABORATORYCLIA [id number] [place] [address] [place] Ovalocytes LM Ql (Bld) Few Normal [facility] Comment on above: Order Comment: Speci men Type: BLOOD SPECIMENOrdering Facility: [facility] Address: [address] [place] [address] Performed By: #### 5 7021-8 ####[facility] LABORATORYCLIA [id number] [address] [place] PLASMA CELLS 0.0 % Normal [facility] Comment on above: Order Comment: Speci men Type: BLOOD SPECIMENOrdering Facility: [facility] Address: [address] [address] Performed By: #### 5 7021-8 ####[facility] LABORATORYCLIA [id number] [place] [address] [place] PLATELET ESTIMATE Adequate Normal [facility] Comment on above: Order Comment: Speci men Type: BLOOD SPECIMENOrdering Facility: [facility] Address: [address] [place] [address] Performed By: #### 5 7021-8 ####[facility] LABORATORYCLIA [id number] [address] [place] Platelet mean volume (Bld) [Entitic vol] 9.1 fL Normal 9.0-12.7 [facility] Comment on above: Order Comment: Speci men Type: BLOOD SPECIMENOrdering Facility: [facility] Address: [address] [place] [address] Performed By: #### 5 7021-8 ####[facility] LABORATORYCLIA [id number] [address] [place] Platelets (Bld) [#/Vol] 301 10*3/uL Normal 150-400 [facility] Comment on above: Order Comment: Speci men Type: BLOOD SPECIMENOrdering Facility: [facility] Address: [address] [place] [address] Performed By: #### 5 7021-8 ####[facility] LABORATORYCLIA [id number] [place] [address] [facility] [place] Polychromasia LM Ql (Bld) Slight Normal [facility] Comment on above: Order Comment: Speci men Type: BLOOD SPECIMENOrdering Facility: [facility] Address: [address] [place] [address] Performed By: #### 5 7021-8 ####[facility] LABORATORYCLIA [id number] [place] [address] [place] PROMYL% 0.0 % Normal [facility] Comment on above: Order Comment: Speci men Type: BLOOD SPECIMENOrdering Facility: [facility] Address: [address] [place] [address] Performed By: #### 5 7021-8 ####[facility] LABORATORYCLIA [id number] [place] [address] [place] RBC (Bld) [#/Vol] 2.86 10*6/uL Low 4.20-6.00 [facility] Comment on above: Order Comment: Speci men Type: BLOOD SPECIMENOrdering Facility: [facility] Address: [address] [place] [address] Performed By: #### 5 7021-8 ####[facility] LABORATORYCLIA [id number] [address] OF [facility] RED CELL MORPH Reviewed: see result s of individual morphologies Normal [facility] Comment on above: Order Comment: Speci men Type: BLOOD SPECIMENOrdering Facility: [facility] Address: [address] [place] [address] Performed By: #### 5 7021-8 ####[facility] LABORATORYCLIA [id number] [address] [place] Variant lymphocytes/100 WBC (Bld) 0.0 % Normal [facility] Comment on above: Order Comment: Speci men Type: BLOOD SPECIMENOrdering Facility: [facility] Address: [address] [place], [place] [address] Performed By: #### 5 7021-8 ####[facility] LABORATORYCLIA [id number] [address] [place] WAM - ABS BASO 0.24 k/uL High <0.11 [facility] Comment on above: Order Comment: Speci men Type: BLOOD SPECIMENOrdering Facility: [facility] Address: [address] [place], [place] [address] Performed By: #### 5 7021-8 ####[facility] LABORATORYCLIA [id number] [address] [place] WAM - ABS MONO 0.98 k/uL High <0.87 [facility] Comment on above: Order Comment: Speci men Type: BLOOD SPECIMENOrdering Facility: [facility] Address: [address] [place] [address] Performed By: #### 5 7021-8 ####[facility] LABORATORYCLIA [id number] [place] [address] [place] WAM - MONO% 4.0 % Normal [facility] Comment on above: Order Comment: Speci men Type: BLOOD SPECIMENOrdering Facility: [facility] Address: [address] [place] [address] Performed By: #### 5 7021-8 ####[facility] LABORATORYCLIA [id number] [place] [address] [place] WAM ABSOLUTE NRBC <0.01 Normal <0.01 [facility] Comment on above: Order Comment: Speci men Type: BLOOD SPECIMENOrdering Facility: [facility] Address: [address] [place] [address] Performed By: #### 5 7021-8 ####[facility] LABORATORYCLIA [id number] [place] [address] [place] WBC (Bld) [#/Vol] 24.38 10*3/uL High 3.70-11.00 [facility] Comment on above: Order Comment: Speci men Type: BLOOD SPECIMENOrdering Facility: [facility] Address: [address] [place] [address] Performed By: #### 5 7021-8 ####[facility] LABORATORYCLIA [id number] [place] [address] [place] Magnesium SerPl-mCncon 05-05 Magnesium [Mass/Vol] 1.9 mg/dL Normal 1.6-2.6 [facility] Comment on above: Order Comment: Speci men Type: BLOOD SPECIMENOrdering Facility: [facility] Address: [address] [place] [address] Performed By: #### 2 4321-2, 08009-6, 05454-5 ####[facility] LABORATORYCLIA [id number] [place] [address] [place] Procalcitonin SerPl-mCncon 0 05-05-2022 Procalcitonin [Mass/Vol] 3.75 ng/mL High 0.00-0.50 [facility] Comment on above: Order Comment: Samanthai daria Type: BLOOD SPECIMENOrdering Facility: [facility] Address: [address] [place] [address] Result Comment: PCT Concentration InterpretationPCT <=0.1 ng/mL:Normal [...] septic shock. Performed By: #### 2 4321-2, 33194-5, 09889-7 ####[facility] LABORATORYCLIA [id number] [address] [place] THERAPY NTon 05-05-2022 THERAPY NT Normal [facility] Bacteria Bld Culton 05-04-20 22 Bacteria identified Cx Nom (Bld) No growth 5 days Normal [facility] Comment on above: Order Comment: Kelsi huff Type: BLOOD SPECIMENOrdering Facility: [facility] Address: [address] [place] [address] Performed By: #### 6 00-7 ####[facility] LABORATORYCLIA [id number] [address] [place] Bacteria identified Cx Nom (Bld) No growth 5 days Normal [facility] Comment on above: Order Comment: Samanthai daria Type: BLOOD SPECIMENOrdering Facility: [facility] Address: [address] [place] [address] Performed By: #### 6 00-7 ####[facility] LABORATORYIA [id number] [address] [place] C diff Tox gens Stl Ql AMADOU+p robeon 05-04-2022 C. difficile toxin genes AMADOU+probe Ql (Stl) Positive Abnormal Negative for C. difficile toxin by PCR [facility] Comment on above: Order Comment: Samanthai men Type: STOOL SPECIMENOrdering Facility: [facility] Address: [address] [address] Result Comment: A po sitive PCR result [...] submission. Performed By: #### 5 4067-4, CDEIA ####[facility] LABORATORYCLIA [id number] [address] C. DIFFICILE TOXIN BY EIAon 05-04-2022 C. difficile toxin A+B IA Ql (Stl) Detected Abnormal Negative for C. difficile toxin [facility] Comment on above: Order Comment: Speci men Type: STOOL SPECIMENOrdering Facility: [facility] Address: [address] [place] [address] Performed By: #### 5 4067-4, CDEIA ####[facility] LABORATORYCLIA [id number] [address] [place] CASE MANAGEMon 05-04-2022 CASE MANAGEM Normal [facility] CASE MANAGEM Normal [facility] CASE MANAGEM Normal [facility] CBC W Auto Differential pane l (Bld)on 05-04-2022 Basophils/100 WBC (Bld) 0.0 % [facility] Comment on above: Order Comment: Speci men Type: BLOOD SPECIMENOrdering Facility: [facility] Address: [address] [place] [address] Performed By: #### 5 7021-8 ####[facility] LABORATORYCLIA [id number] [address] [place] Differential cell count method Nom (Bld) Manual Normal [facility] Comment on above: Order Comment: Speci men Type: BLOOD SPECIMENOrdering Facility: [facility] Address: [address] [place] [address] Performed By: #### 5 7021-8 ####[facility] LABORATORYCLIA [id number] [place] [address] [place] Eosinophils (Bld) [#/Vol] 0.00 10*3/uL Normal <0.46 [facility] Comment on above: Order Comment: Speci men Type: BLOOD SPECIMENOrdering Facility: [facility] Address: [address] [place] [address] Performed By: #### 5 7021-8 ####[facility] LABORATORYCLIA [id number] [address] [place] Eosinophils/100 WBC (Bld) 0.0 % Normal [facility] Comment on above: Order Comment: Speci men Type: BLOOD SPECIMENOrdering Facility: [facility] Address: [address] [place] [address] Performed By: #### 5 7021-8 ####[facility] LABORATORYCLIA [id number] [address] [place] Erythrocyte distribution width (RBC) [Ratio] 15.4 % High 11.5-15.0 [facility] Comment on above: Order Comment: Speci men Type: BLOOD SPECIMENOrdering Facility: [facility] Address: [address] [place] [address] Performed By: #### 5 7021-8 ####[facility] LABORATORYCLIA [id number] [address] [place] Hematocrit (Bld) [Volume fraction] 26.9 % Low 39.0-51.0 [facility] Comment on above: Order Comment: Speci men Type: BLOOD SPECIMENOrdering Facility: [facility] Address: [address] [place] [address] Performed By: #### 5 7021-8 ####[facility] LABORATORYCLIA [id number] [place] [address] [place] Hemoglobin (Bld) [Mass/Vol] 8.8 g/dL Low 13.0-17.0 [facility] Comment on above: Order Comment: Speci men Type: BLOOD SPECIMENOrdering Facility: [facility] Address: [address] [place] [address] Performed By: #### 5 7021-8 ####[facility] LABORATORYCLIA [id number] [address] [place] Lymphocytes (Bld) [#/Vol] 1.29 10*3/uL Normal 1.00-4.00 [facility] Comment on above: Order Comment: Speci men Type: BLOOD SPECIMENOrdering Facility: [facility] Address: [address] [place] [address] Performed By: #### 5 7021-8 ####[facility] LABORATORYCLIA [id number] [address] [place] Lymphocytes/100 WBC (Bld) 4.0 % Normal [facility] Comment on above: Order Comment: Speci men Type: BLOOD SPECIMENOrdering Facility: [facility] Address: [address] [place] [address] Performed By: #### 5 7021-8 ####[facility] LABORATORYCLIA [id number] [place] [address] [place] MCH (RBC) [Entitic mass] 31.1 pg Normal 26.0-34.0 [facility] Comment on above: Order Comment: Speci men Type: BLOOD SPECIMENOrdering Facility: [facility] Address: [address] [place], [place] [address] Performed By: #### 5 7021-8 ####[facility] LABORATORYCLIA [id number] [address] [place] MCHC (RBC) [Mass/Vol] 32.7 g/dL Normal 30.5-36.0 [facility] Comment on above: Order Comment: Speci men Type: BLOOD SPECIMENOrdering Facility: [facility] Address: [address] [place] [address] Performed By: #### 5 7021-8 ####[facility] LABORATORYCLIA [id number] [place] [address] [place] MCV (RBC) [Entitic vol] 95.1 fL Normal 80.0-100.0 [facility] Comment on above: Order Comment: Speci men Type: BLOOD SPECIMENOrdering Facility: [facility] Address: [address] [place] [address] Performed By: #### 5 7021-8 ####[facility] LABORATORYCLIA [id number] [place] [address] [place] Neutrophils (Bld) [#/Vol] 29.72 10*3/uL High 1.45-7.50 [facility] Comment on above: Order Comment: Speci men Type: BLOOD SPECIMENOrdering Facility: [facility] Address: [address] [place] [address] Performed By: #### 5 7021-8 ####[facility]ENTERIA [id number] [address] [place] Neutrophils/100 WBC (Bld) 92.0 % Normal [facility] Comment on above: Order Comment: Speci men Type: BLOOD SPECIMENOrdering Facility: [facility] Address: [address] [place] [address] Performed By: #### 5 7021-8 ####[facility] CENTERIA [id number] [place] [address] [place] Nucleated RBC/100 WBC (Bld) [Ratio] 0.0 /100 WBC Normal [facility] Comment on above: Order Comment: Speci men Type: BLOOD SPECIMENOrdering Facility: [facility] Address: [address] [place] [address] Performed By: #### 5 7021-8 ####[facility] LABORATORYIA [id number] [address] [place] PLATELET ESTIMATE Adequate Normal [facility] Comment on above: Order Comment: Speci men Type: BLOOD SPECIMENOrdering Facility: [facility] Address: [address] [place] [address] Performed By: #### 5 7021-8 ####[facility] LABORATORYCLIA [id number] [address] [place] Platelet mean volume (Bld) [Entitic vol] 9.0 fL Normal 9.0-12.7 [facility] Comment on above: Order Comment: Speci men Type: BLOOD SPECIMENOrdering Facility: [facility] Address: [address] [place], [place] [id number] Performed By: #### 5 7021-8 ####[facility] LABORATORYCLIA [id number] [place] [address] [place] Platelets (Bld) [#/Vol] 284 10*3/uL Normal 150-400 [facility] Comment on above: Order Comment: Speci men Type: BLOOD SPECIMENOrdering Facility: [facility] [facility] Address: [address] [place], [place] [address] Performed By: #### 5 7021-8 ####[facility] LABORATORYCLIA [id number] [address] [place] RBC (Bld) [#/Vol] 2.83 10*6/uL Low 4.20-6.00 [facility] Comment on above: Order Comment: Speci men Type: BLOOD SPECIMENOrdering Facility: [facility] Address: [address] [place] [address] Performed By: #### 5 7021-8 ####[facility] LABORATORYCLIA [id number] [address] RED CELL MORPH Reviewed: unremarkable Normal [facility] Comment on above: Order Comment: Speci men Type: BLOOD SPECIMENOrdering Facility: [facility] Address: [address] [place], [place] [address] Performed By: #### 5 7021-8 ####[facility] LABORATORYCLIA [id number] [address] [place] WAM - ABS BASO 0.00 k/uL Normal <0.11 [facility] Comment on above: Order Comment: Speci men Type: BLOOD SPECIMENOrdering Facility: [facility] Address: [address] [place] [address] Performed By: #### 5 7021-8 ####[facility] LABORATORYCLIA [id number] [place] [address] [place] WAM - ABS MONO 1.29 k/uL High <0.87 [facility] Comment on above: Order Comment: Speci men Type: BLOOD SPECIMENOrdering Facility: [facility] Address: [address] [place] [address] Performed By: #### 5 7021-8 ####[facility] LABORATORYCLIA [id number] [place] [address] [place] WAM - MONO% 4.0 % Normal [facility] Comment on above: Order Comment: Speci men Type: BLOOD SPECIMENOrdering Facility: [facility] Address: [address] [place] [address] Performed By: #### 5 7021-8 ####[facility] LABORATORYCLIA [id number] [place] [address] [place] WAM ABSOLUTE NRBC <0.01 Normal <0.01 [facility] Comment on above: Order Comment: Speci men Type: BLOOD SPECIMENOrdering Facility: [facility] Address: [address] [place] [address] Performed By: #### 5 7021-8 ####[facility] LABORATORYCLIA [id number] [place] [address] [place] WBC (Bld) [#/Vol] 32.30 10*3/uL High 3.70-11.00 [facility] Comment on above: Order Comment: Speci men Type: BLOOD SPECIMENOrdering Facility: [facility] Address: [address] [place] [address] Performed By: #### 5 7021-8 ####[facility] LABORATORYCLIA [id number] [place] [address] [facility] [place] Gastrointestinal pathogens p everett AMADOU+probe (Stl)on 05-04-2022 ADENOVIRUS F 40/41 Not detected Normal Not Detected [facility] Comment on above: Order Comment: Speci men Type: STOOL SPECIMENOrdering Facility: [facility] Address: [address] [place] [address] Performed By: #### 7 9381-0 ####[facility] LABORATORYCLIA [id number] [place] [address] [place] ASTROVIRUS Not detected Normal Not Detected [facility] Comment on above: Order Comment: Speci men Type: STOOL SPECIMENOrdering Facility: [facility] Address: [address] [place] [address] Performed By: #### 7 9381-0 ####[facility] LABORATORYCLIA [id number] [place] [address] [place] C. cayetanensis DNA AMADOU+probe Ql (Unsp spec) Not detected Normal Not Detected [facility] Comment on above: Order Comment: Speci men Type: STOOL SPECIMENOrdering Facility: [facility] Address: [address] [place] [address] Performed By: #### 7 9381-0 ####[facility] LABORATORYCLIA [id number] [place] [address] [place] Campylobacter sp DNA.diarrheagenic AMADOU+probe Ql (Stl) Not detected Normal Not Detected [facility] Comment on above: Order Comment: Speci men Type: STOOL SPECIMENOrdering Facility: [facility] Address: [address] [place] [address] Performed By: #### 7 9381-0 ####[facility] LABORATORYCLIA [id number] [place] [address] [place] Cryptosporidium sp DNA AMADOU+probe Ql (Unsp spec) Not detected Normal Not detected [facility] Comment on above: Order Comment: Speci men Type: STOOL SPECIMENOrdering Facility: [facility] Address: [address] [place] [address] Performed By: #### 7 9381-0 ####[facility] LABORATORYCLIA [id number] [address] E. COLI (EAEC) Not detected Normal Not Detected [facility] Comment on above: Order Comment: Speci men Type: STOOL SPECIMENOrdering Facility: [facility] Address: [address] [place] [address] Performed By: #### 7 9381-0 ####[facility] LABORATORYCLIA [id number] [address] E. COLI (EPEC) Detected Abnormal Not Detected [facility] Comment on above: Order Comment: Speci men Type: STOOL SPECIMENOrdering Facility: [facility] Address: [address] [place] [address] Performed By: #### 7 9381-0 ####[facility] LABORATORYCLIA [id number] [address] E. COLI (ETEC) Not detected Normal Not Detected [facility] Comment on above: Order Comment: Speci men Type: STOOL SPECIMENOrdering Facility: [facility] Address: [address] [place] [address] Performed By: #### 7 9381-0 ####[facility] LABORATORYIA [id number] [address] E. COLI (STEC) Not detected Normal Not Detected [facility] Comment on above: Order Comment: Speci men Type: STOOL SPECIMENOrdering Facility: [facility] Address: [address] [place] [address] Performed By: #### 7 9381-0 ####[facility] LABORATORYIA [id number] [address] [place] E. coli O157:H7 DNA AMADOU+probe Ql (Unsp spec) Not Applicable Normal Not Detected [facility] Comment on above: Order Comment: Speci men Type: STOOL SPECIMENOrdering Facility: [facility] Address: [address] [place] [address] Performed By: #### 7 9381-0 ####[facility] LABORATORYCLIA [id number] [address] [place] E. histolytica DNA AMADOU+probe Ql (Unsp spec) Not detected Normal Not Detected [facility] Comment on above: Order Comment: Speci men Type: STOOL SPECIMENOrdering Facility: [facility] Address: [address] [place] [address] Performed By: #### 7 9381-0 ####[facility] LABORATORYCLIA [id number] [address] [place] G. lamblia DNA AMADOU+probe Ql (Unsp spec) Not detected Normal Not Detected [facility] Comment on above: Order Comment: Speci men Type: STOOL SPECIMENOrdering Facility: [facility] Address: [address] [place] [address] Performed By: #### 7 9381-0 ####[facility] LABORATORYCLIA [id number] [address] [place] NOROVIRUS GI/GII Not detected Normal Not Detected [facility] Comment on above: Order Comment: Speci men Type: STOOL SPECIMENOrdering Facility: [facility] Address: [address] [place] [address] Performed By: #### 7 9381-0 ####[facility] LABORATORYCLIA [id number] [address] [place] PLESIOMONAS SHIGELLOIDES Not detected Normal Not Detected [facility] Comment on above: Order Comment: Speci men Type: STOOL SPECIMENOrdering Facility: [facility] Address: [address] [place] [address] Performed By: #### 7 9381-0 ####[facility] LABORATORYCLIA [id number] [address] [place] ROTOVIRUS A Not detected Normal Not Detected [facility] Comment on above: Order Comment: Speci men Type: STOOL SPECIMENOrdering Facility: [facility] Address: [address] [place] [address] Performed By: #### 7 9381-0 ####[facility] LABORATORYCLIA [id number] [address] OF [facility] Salmonella sp DNA AMADOU+probe Ql (Unsp spec) Not detected Normal Not Detected [facility] Comment on above: Order Comment: Speci men Type: STOOL SPECIMENOrdering Facility: [facility] Address: [address] [place] [address] Performed By: #### 7 9381-0 ####[facility] LABORATORYCLIA [id number] [address] [place] SAPOVIRUS I,II,IV,V Not detected Normal Not Detected [facility] Comment on above: Order Comment: Speci men Type: STOOL SPECIMENOrdering Facility: [facility] Address: [address] [place] [address] Performed By: #### 7 9381-0 ####[facility] LABORATORYCLIA [id number] [address] [place] Shigella species+EIEC invasion plasmid antigen H ipaH gene AMADOU+probe Ql (Stl) Not detected Normal Not Detected [facility] Comment on above: Order Comment: Speci men Type: STOOL SPECIMENOrdering Facility: [facility] Address: [address] [place] [address] Performed By: #### 7 9381-0 ####[facility] LABORATORYCLIA [id number] [address] [place] V. cholerae DNA AMADOU+probe Ql (Unsp spec) Not detected Normal Not Detected [facility] Comment on above: Order Comment: Speci men Type: STOOL SPECIMENOrdering Facility: [facility] Address: [address] [place] [address] Performed By: #### 7 9381-0 ####[facility] LABORATORYCLIA [id number] [place] [address] [place] Vibrio sp DNA AMADOU+probe Nom (Unsp spec) Not detected Normal Not Detected [facility] Comment on above: Order Comment: Speci men Type: STOOL SPECIMENOrdering Facility: [facility] Address: [address] [place] [address] Performed By: #### 7 9381-0 ####[facility] LABORATORYCLIA [id number] [address] Yersinia sp DNA AMADOU+probe Nom (Unsp spec) Not detected Normal Not Detected [facility] Comment on above: Order Comment: Speci men Type: STOOL SPECIMENOrdering Facility: [facility] Address: [address] [place] [address] Performed By: #### 7 9381-0 ####[facility] LABORATORYCLIA [id number] [address] [place] NUTRITIONon 05-04-2022 NUTRITION Normal [facility] THERAPY NTon 05-04-2022 THERAPY NT Normal [facility] THERAPY NT Normal [facility] XR CHEST 1V FRONTALon 2021 XR CHEST 1V FRONTAL Normal [facility] CASE MANAGEMon 05-03-2022 CASE MANAGEM Normal [facility] CASE MANAGEM Normal [facility] CASE MANAGEM Normal [facility] CASE MANAGEM Normal [facility] CBC W Auto Differential pane l (Bld)on 05-03-2022 Band form neutrophils/100 WBC (Bld) 1.0 % Normal [facility] Comment on above: Order Comment: Speci men Type: BLOOD SPECIMENOrdering Facility: [facility] Address: [address] [place] [address] Performed By: #### 5 7021-8 ####[facility] LABORATORYCLIA [id number] [address] [place] Basophils/100 WBC (Bld) 0.0 % Normal [facility] Comment on above: Order Comment: Speci men Type: BLOOD SPECIMENOrdering Facility: [facility] Address: [address] [place] [address] Performed By: #### 5 7021-8 ####[facility] LABORATORYCLIA [id number] [place] [address] [place] Differential cell count method Nom (Bld) Manual Normal [facility] Comment on above: Order Comment: Speci men Type: BLOOD SPECIMENOrdering Facility: [facility] Address: [address] [place] [address] Performed By: #### 5 7021-8 ####[facility] LABORATORYCLIA [id number] [place] [address] [place] Eosinophils (Bld) [#/Vol] 0.15 10*3/uL Normal <0.46 [facility] Comment on above: Order Comment: Speci men Type: BLOOD SPECIMENOrdering Facility: [facility] Address: [address] [place] [address] Performed By: #### 5 7021-8 ####[facility] LABORATORYCLIA [id number] [address] [place] Eosinophils/100 WBC (Bld) 1.0 % Normal [facility] Comment on above: Order Comment: Speci men Type: BLOOD SPECIMENOrdering Facility: [facility] Address: [address] [place] [address] Performed By: #### 5 7021-8 ####[facility] LABORATORYCLIA [id number] [address] [place] Erythrocyte distribution width (RBC) [Ratio] 15.4 % High 11.5-15.0 [facility] Comment on above: Order Comment: Speci men Type: BLOOD SPECIMENOrdering Facility: [facility] Address: [address] [place] [address] Performed By: #### 5 7021-8 ####[facility] LABORATORYCLIA [id number] [address] [place] Hematocrit (Bld) [Volume fraction] 29.2 % Low 39.0-51.0 [facility] Comment on above: Order Comment: Speci men Type: BLOOD SPECIMENOrdering Facility: [facility] Address: [address] [place] [address] Performed By: #### 5 7021-8 ####[facility] LABORATORYCLIA [id number] [place] [address] [place] Hemoglobin (Bld) [Mass/Vol] 9.4 g/dL Low 13.0-17.0 [facility] Comment on above: Order Comment: Speci men Type: BLOOD SPECIMENOrdering Facility: [facility] Address: [address] [place] [address] Performed By: #### 5 7021-8 ####[facility] LABORATORYCLIA [id number] [place] [address] [place] Lymphocytes (Bld) [#/Vol] 0.45 10*3/uL Low 1.00-4.00 [facility] Comment on above: Order Comment: Speci men Type: BLOOD SPECIMENOrdering Facility: [facility] Address: [address] [place] [address] Performed By: #### 5 7021-8 ####[facility] LABORATORYCLIA [id number] [address] OF [facility] Lymphocytes/100 WBC (Bld) 3.0 % Normal [facility] Comment on above: Order Comment: Speci men Type: BLOOD SPECIMENOrdering Facility: [facility] Address: [address] [place] [address] Performed By: #### 5 7021-8 ####[facility] LABORATORYCLIA [id number] [place] [address] [place] MCH (RBC) [Entitic mass] 30.8 pg Normal 26.0-34.0 [facility] Comment on above: Order Comment: Speci men Type: BLOOD SPECIMENOrdering Facility: [facility] Address: [address] [place] [address] Performed By: #### 5 7021-8 ####[facility] LABORATORYCLIA [id number] [place] [address] [place] MCHC (RBC) [Mass/Vol] 32.2 g/dL Normal 30.5-36.0 [facility] Comment on above: Order Comment: Speci men Type: BLOOD SPECIMENOrdering Facility: [facility] Address: [address] [place] [address] Performed By: #### 5 7021-8 ####[facility] LABORATORYCLIA [id number] [place] [address] [place] MCV (RBC) [Entitic vol] 95.7 fL Normal 80.0-100.0 [facility] Comment on above: Order Comment: Speci men Type: BLOOD SPECIMENOrdering Facility: [facility] Address: [address] [place], [place] [address] Performed By: #### 5 7021-8 ####[facility] LABORATORYCLIA [id number] [place] [address] [place] Metamyelocytes/100 WBC (Bld) 1.0 % Normal [facility] Comment on above: Order Comment: Speci men Type: BLOOD SPECIMENOrdering Facility: [facility] Address: [address] [place], [place] [address] Performed By: #### 5 7021-8 ####[facility] LABORATORYCLIA [id number] [place] [address] [place] Neutrophils (Bld) [#/Vol] 13.48 10*3/uL High 1.45-7.50 [facility] Comment on above: Order Comment: Speci men Type: BLOOD SPECIMENOrdering Facility: [facility] Address: [address] [place], [place] [address] Performed By: #### 5 7021-8 ####[facility] LABORATORYCLIA [id number] [address] [place] Neutrophils/100 WBC (Bld) 88.0 % Normal [facility] Comment on above: Order Comment: Speci men Type: BLOOD SPECIMENOrdering Facility: [facility] Address: [address] [place], [place] [address] Performed By: #### 5 7021-8 ####[facility] LABORATORYCLIA [id number] [address] [place] Nucleated RBC/100 WBC (Bld) [Ratio] 0.0 /100 WBC Normal [facility] Comment on above: Order Comment: Speci men Type: BLOOD SPECIMENOrdering Facility: [facility] Address: [address] [place] [address] Performed By: #### 5 7021-8 ####[facility] LABORATORYCLIA [id number] [place] [address] [place] Ovalocytes LM Ql (Bld) Few Normal [facility] Comment on above: Order Comment: Speci men Type: BLOOD SPECIMENOrdering Facility: [facility] Address: [address] [place] [address] Performed By: #### 5 7021-8 ####[facility] LABORATORYCLIA [id number] [address] [place] PLATELET ESTIMATE Adequate Normal [facility] Comment on above: Order Comment: Speci men Type: BLOOD SPECIMENOrdering Facility: [facility] Address: [address] [place] [address] Performed By: #### 5 7021-8 ####[facility] LABORATORYCLIA [id number] [place] [address] [place] Platelet mean volume (Bld) [Entitic vol] 9.0 fL Normal 9.0-12.7 [facility] Comment on above: Order Comment: Speci men Type: BLOOD SPECIMENOrdering Facility: [facility] Address: [address] [place], [place] [address] Performed By: #### 5 7021-8 ####[facility] LABORATORYCLIA [id number] [place] [address] [place] Platelets (Bld) [#/Vol] 267 10*3/uL Normal 150-400 [facility] Comment on above: Order Comment: Speci men Type: BLOOD SPECIMENOrdering Facility: [facility] Address: [address] [place] [address] Performed By: #### 5 7021-8 ####[facility] LABORATORYCLIA [id number] [address] Polychromasia LM Ql (Bld) Slight Normal [facility] Comment on above: Order Comment: Speci men Type: BLOOD SPECIMENOrdering Facility: [facility] Address: [address] [place] [address] Performed By: #### 5 7021-8 ####[facility] LABORATORYCLIA [id number] [place] [address] [place] RBC (Bld) [#/Vol] 3.05 10*6/uL Low 4.20-6.00 [facility] Comment on above: Order Comment: Speci men Type: BLOOD SPECIMENOrdering Facility: [facility] Address: [address] [place] [address] Performed By: #### 5 7021-8 ####[facility] LABORATORYCLIA [id number] [address] RED CELL MORPH Reviewed: see result s of individual morphologies Normal [facility] Comment on above: Order Comment: Speci men Type: BLOOD SPECIMENOrdering Facility: [facility] Address: [address] [place] [address] Performed By: #### 5 7021-8 ####[facility] LABORATORYCLIA [id number] [address] WAM - ABS BASO 0.00 k/uL Normal <0.11 [facility] Comment on above: Order Comment: Speci men Type: BLOOD SPECIMENOrdering Facility: [facility] Address: [address] [place] [address] Performed By: #### 5 7021-8 ####[facility] LABORATORYCLIA [id number] [address] WAM - ABS MONO 0.91 k/uL High <0.87 [facility] Comment on above: Order Comment: Speci men Type: BLOOD SPECIMENOrdering Facility: [facility] Address: [address] [place] [address] Performed By: #### 5 7021-8 ####[facility] LABORATORYCLIA [id number] [place] [address] [place] WAM - MONO% 6.0 % Normal [facility] Comment on above: Order Comment: Speci men Type: BLOOD SPECIMENOrdering Facility: [facility] Address: [address] [place] [address] Performed By: #### 5 7021-8 ####[facility] LABORATORYCLIA [id number] [address] [place] WAM ABSOLUTE NRBC <0.01 Normal <0.01 [facility] Comment on above: Order Comment: Speci men Type: BLOOD SPECIMENOrdering Facility: [facility] Address: [address] [place] [address] Performed By: #### 5 7021-8 ####[facility] LABORATORYCLIA [id number] [place] [address] [place] WBC (Bld) [#/Vol] 15.15 10*3/uL High 3.70-11.00 [facility] Comment on above: Order Comment: Speci men Type: BLOOD SPECIMENOrdering Facility: [facility] Address: [address] [place] [address] Performed By: #### 5 7021-8 ####[facility] LABORATORYCLIA [id number] [place] [address] [place] THERAPY NTon 05-03-2022 THERAPY NT Normal [facility] THERAPY NT Normal [facility] ALLIED HEALTHon 05-02-2022 ALLIED HEALTH Normal [facility] Basic metabolic 2000 panelon 05-02-2022 Anion gap [Moles/Vol] 14 mmol/L Normal 5-16 [facility] Comment on above: Order Comment: Speci men Type: BLOOD SPECIMENOrdering Facility: [facility] Address: [address] [place] [address] Performed By: #### 2 4321-2 ####[facility] LABORATORYCLIA [id number] [place] [address] [place] Calcium [Mass/Vol] 8.3 mg/dL Low 8.5-10.5 [facility] Comment on above: Order Comment: Speci men Type: BLOOD SPECIMENOrdering Facility: [facility] Address: [address] [address] Performed By: #### 2 4321-2 ####[facility] LABORATORYCLIA [id number] [place] [address] [place] Chloride [Moles/Vol] 94 mmol/L Low 98-107 [facility] Comment on above: Order Comment: Speci men Type: BLOOD SPECIMENOrdering Facility: [facility] Address: [address] [place] [address] Performed By: #### 2 4321-2 ####[facility] LABORATORYCLIA [id number] [place] [address] [place] CO2 [Moles/Vol] 23 mmol/L Normal 21-32 [facility] Comment on above: Order Comment: Speci men Type: BLOOD SPECIMENOrdering Facility: [facility] Address: [address] [place] [address] Performed By: #### 2 4321-2 ####[facility] LABORATORYCLIA [id number] [place] [address] [place] Creatinine [Mass/Vol] 6.09 mg/dL High 0.50-1.40 [facility] Comment on above: Order Comment: Speci men Type: BLOOD SPECIMENOrdering Facility: [facility] Address: [address] [place] [address] Result Comment: Macrina ents receiving either N-Acetylcysteine (NAC) or Metamizole prior to venipuncture, may have falsely depressed results. Performed By: #### 2 4321-2 ####[facility] LABORATORYCLIA [id number] [place] [address] [place] ESTIMATED GLOMERULAR FILTRATION RATE 10 mL/min/1.73m??? Low >=60 [facility] Comment on above: Order Comment: Speci men Type: BLOOD SPECIMENOrdering Facility: [facility] Address: [address] [phone] Result Comment: Caryl mated Glomerular Filtration Rate [...] actual GFR. Performed By: #### 2 4321-2 ####[facility] LABORATORYCLIA [id number] [place] [address] [place] Glucose [Mass/Vol] 130 mg/dL High 70-100 [facility] Comment on above: Order Comment: Kelsi huff Type: BLOOD SPECIMENOrdering Facility: [facility] Address: [address] [phone] Result Comment: The [place] [employer] Association (ADA) provides guidance for cutoff [...] Standards of Medical Care in Diabetes 2016, [place] [employer]. Diabetes Care. 2016.39(Suppl 1).Results may be falsely elevated after the administration of Sulfapyridine.Results may be falsely depressed after the administration of Sulfasalazine. Performed By: #### 2 4321-2 ####[facility] LABORATORYCLIA [id number] [place] [address] [place] Potassium [Moles/Vol] 4.6 mmol/L Normal 3.5-5.1 [facility] Comment on above: Order Comment: Kelsi huff Type: BLOOD SPECIMENOrdering Facility: [facility] Address: [address] [place] [address] Result Comment: Slig ht Hemolysis, Result may be affected. Performed By: #### 2 4321-2 ####[facility] LABORATORYCLIA [id number] [place] [id number] [place] Sodium [Moles/Vol] 131 mmol/L Low 136-145 [facility] Comment on above: Order Comment: Speci men Type: BLOOD SPECIMENOrdering Facility: [facility] Address: [address] [place] [address] Performed By: #### 2 4321-2 ####[facility] LABORATORYCLIA [id number] [place] [address] [place] Urea nitrogen [Mass/Vol] 82 mg/dL High 7-26 [facility] Comment on above: Order Comment: Speci men Type: BLOOD SPECIMENOrdering Facility: [facility] Address: [address] [place] [address] Performed By: #### 2 4321-2 ####[facility] LABORATORYCLIA [id number] [place] [address] [place] CASE MANAGEMon 05-02-2022 CASE MANAGEM Normal [facility] CBC W Auto Differential pane l (Bld)on 05-02-2022 Band form neutrophils/100 WBC (Bld) 1.0 % Normal [facility] Comment on above: Order Comment: Speci men Type: BLOOD SPECIMENOrdering Facility: [facility] Address: [address] [place] [address] Performed By: #### 5 7021-8 ####[facility] LABORATORYCLIA [id number] [place] [address] [place] Basophils/100 WBC (Bld) 0.0 % Normal [facility] Comment on above: Order Comment: Speci men Type: BLOOD SPECIMENOrdering Facility: [facility] Address: [address] [place] [address] Performed By: #### 5 7021-8 ####[facility] LABORATORYCLIA [id number] [address] [place] Differential cell count method Nom (Bld) Manual Normal [facility] Comment on above: Order Comment: Speci men Type: BLOOD SPECIMENOrdering Facility: [facility] Address: [address] [place] [address] Performed By: #### 5 7021-8 ####[facility] LABORATORYCLIA [id number] [place] [address] [place] Eosinophils (Bld) [#/Vol] 0.40 10*3/uL Normal <0.46 [facility] Comment on above: Order Comment: Speci men Type: BLOOD SPECIMENOrdering Facility: [facility] Address: [address] [place] [address] Performed By: #### 5 7021-8 ####[facility] LABORATORYCLIA [id number] [address] Eosinophils/100 WBC (Bld) 3.0 % Normal [facility] Comment on above: Order Comment: Speci men Type: BLOOD SPECIMENOrdering Facility: [facility] Address: [address] [place] [address] Performed By: #### 5 7021-8 ####[facility] LABORATORYCLIA [id number] [address] [place] Erythrocyte distribution width (RBC) [Ratio] 15.0 % Normal 11.5-15.0 [facility] Comment on above: Order Comment: Speci men Type: BLOOD SPECIMENOrdering Facility: [facility] Address: [address] [place] [address] Performed By: #### 5 7021-8 ####[facility] LABORATORYCLIA [id number] [address] [place] Hematocrit (Bld) [Volume fraction] 28.5 % Low 39.0-51.0 [facility] Comment on above: Order Comment: Speci men Type: BLOOD SPECIMENOrdering Facility: [facility] Address: [address] [place] [address] Performed By: #### 5 7021-8 ####[facility] LABORATORYCLIA [id number] [place] [address] [place] Hemoglobin (Bld) [Mass/Vol] 9.5 g/dL Low 13.0-17.0 [facility] Comment on above: Order Comment: Speci men Type: BLOOD SPECIMENOrdering Facility: [facility] Address: [address] [place] [address] Performed By: #### 5 7021-8 ####[facility] LABORATORYCLIA [id number] [place] [address] [place] Lymphocytes (Bld) [#/Vol] 2.11 10*3/uL Normal 1.00-4.00 [facility] Comment on above: Order Comment: Speci men Type: BLOOD SPECIMENOrdering Facility: [facility] Address: [address] [place] [address] Performed By: #### 5 7021-8 ####[facility] LABORATORYCLIA [id number] [address] [place] Lymphocytes/100 WBC (Bld) 16.0 % Normal [facility] Comment on above: Order Comment: Speci men Type: BLOOD SPECIMENOrdering Facility: [facility] Address: [address] [place] [address] Performed By: #### 5 7021-8 ####[facility] LABORATORYCLIA [id number] [place] [address] [place] MCH (RBC) [Entitic mass] 30.8 pg Normal 26.0-34.0 [facility] Comment on above: Order Comment: Speci men Type: BLOOD SPECIMENOrdering Facility: [facility] Address: [address] [place], [place] [address] Performed By: #### 5 7021-8 ####[facility] LABORATORYCLIA [id number] [address] [place] MCHC (RBC) [Mass/Vol] 33.3 g/dL Normal 30.5-36.0 [facility] Comment on above: Order Comment: Speci men Type: BLOOD SPECIMENOrdering Facility: [facility] Address: [address] [place], [place] [address] Performed By: #### 5 7021-8 ####[facility] LABORATORYCLIA [id number] [place] [address] [place] MCV (RBC) [Entitic vol] 92.5 fL Normal 80.0-100.0 [facility] Comment on above: Order Comment: Speci men Type: BLOOD SPECIMENOrdering Facility: [facility] Address: [address] [place], [place] [address] Performed By: #### 5 7021-8 ####[facility] LABORATORYCLIA [id number] [place] [address] [place] Metamyelocytes/100 WBC (Bld) 1.0 % Normal [facility] Comment on above: Order Comment: Speci men Type: BLOOD SPECIMENOrdering Facility: [facility] Address: [address] [place], [place] [address] Performed By: #### 5 7021-8 ####[facility] LABORATORYCLIA [id number] [place] [address] [place] Neutrophils (Bld) [#/Vol] 9.88 10*3/uL High 1.45-7.50 [facility] Comment on above: Order Comment: Speci men Type: BLOOD SPECIMENOrdering Facility: [facility] Address: [address] [place], [place] [address] Performed By: #### 5 7021-8 ####[facility] LABORATORYCLIA [id number] [place] [address] [place] Neutrophils/100 WBC (Bld) 74.0 % Normal [facility] Comment on above: Order Comment: Speci men Type: BLOOD SPECIMENOrdering Facility: [facility] Address: [address] [place], [place] [address] Performed By: #### 5 7021-8 ####[facility] LABORATORYCLIA [id number] [address] [place] Nucleated RBC/100 WBC (Bld) [Ratio] 0.0 /100 WBC Normal [facility] Comment on above: Order Comment: Speci men Type: BLOOD SPECIMENOrdering Facility: [facility] Address: [address] [place] [address] Performed By: #### 5 7021-8 ####[facility] LABORATORYCLIA [id number] [place] [address] [place] Ovalocytes LM Ql (Bld) Few Normal [facility] Comment on above: Order Comment: Speci men Type: BLOOD SPECIMENOrdering Facility: [facility] Address: [address] [place] [address] Performed By: #### 5 7021-8 ####[facility]ENTERIA [id number] [place] [address] [place] PLATELET ESTIMATE Adequate Normal [facility] Comment on above: Order Comment: Speci men Type: BLOOD SPECIMENOrdering Facility: [facility] Address: [address] [place] [address] Performed By: #### 5 7021-8 ####[facility] LABORATORYIA [id number] [place] [address] [place] Platelet mean volume (Bld) [Entitic vol] 9.2 fL Normal 9.0-12.7 [facility] Comment on above: Order Comment: Speci men Type: BLOOD SPECIMENOrdering Facility: [facility] Address: [address] [place] [address] Performed By: #### 5 7021-8 ####[facility] LABORATORYIA [id number] [place] [address] [place] Platelets (Bld) [#/Vol] 228 10*3/uL Normal 150-400 [facility] Comment on above: Order Comment: Speci men Type: BLOOD SPECIMENOrdering Facility: [facility] Address: [address] [place] [address] Performed By: #### 5 7021-8 ####[facility] LABORATORYCLIA [id number] [address] Polychromasia LM Ql (Bld) Slight Normal [facility] Comment on above: Order Comment: Speci men Type: BLOOD SPECIMENOrdering Facility: [facility] Address: [address] [place] [address] Performed By: #### 5 7021-8 ####[facility] LABORATORYCLIA [id number] [place] [address] [place] RBC (Bld) [#/Vol] 3.08 10*6/uL Low 4.20-6.00 [facility] Comment on above: Order Comment: Speci men Type: BLOOD SPECIMENOrdering Facility: [facility] Address: [address] [place] [address] Performed By: #### 5 7021-8 ####[facility] LABORATORYCLIA [id number] [address] RED CELL MORPH Reviewed: see result s of individual morphologies Normal [facility] Comment on above: Order Comment: Speci men Type: BLOOD SPECIMENOrdering Facility: [facility] Address: [address] [place] [address] Performed By: #### 5 7021-8 ####[facility] LABORATORYCLIA [id number] [address] OF [facility] WAM - ABS BASO 0.00 k/uL Normal <0.11 [facility] Comment on above: Order Comment: Speci men Type: BLOOD SPECIMENOrdering Facility: [facility] Address: [address] [place] [address] Performed By: #### 5 7021-8 ####[facility] LABORATORYCLIA [id number] [address] WAM - ABS MONO 0.66 k/uL Normal <0.87 [facility] Comment on above: Order Comment: Speci men Type: BLOOD SPECIMENOrdering Facility: [facility] Address: [address] [place] [address] Performed By: #### 5 7021-8 ####[facility] LABORATORYCLIA [id number] [place] [address] [place] WAM - MONO% 5.0 % Normal [facility] Comment on above: Order Comment: Speci men Type: BLOOD SPECIMENOrdering Facility: [facility] Address: [address] [place] [address] Performed By: #### 5 7021-8 ####[facility] LABORATORYCLIA [id number] [place] [address] [place] WAM ABSOLUTE NRBC <0.01 Normal <0.01 [facility] Comment on above: Order Comment: Speci men Type: BLOOD SPECIMENOrdering Facility: [facility] Address: [address] [place] [address] Performed By: #### 5 7021-8 ####[facility] LABORATORYCLIA [id number] [place] [address] [place] WBC (Bld) [#/Vol] 13.17 10*3/uL High 3.70-11.00 [facility] Comment on above: Order Comment: Speci men Type: BLOOD SPECIMENOrdering Facility: [facility] Address: [address] [place] [address] Performed By: #### 5 7021-8 ####[facility] LABORATORYCLIA [id number] [address] [place] CONSULT PROGon 05-02-2022 CONSULT PROG [facility] CONSULT PROG [facility] THERAPY NTon 05-02-2022 THERAPY NT Normal [facility] THERAPY NT [facility] Basic metabolic 2000 panelon 05-01-2022 Anion gap [Moles/Vol] 10 mmol/L Normal 5-16 [facility] Comment on above: Order Comment: Speci men Type: BLOOD SPECIMENOrdering Facility: [facility] Address: [address] [place] [address] Performed By: #### 2 4321-2 ####[facility] LABORATORYCLIA [id number] [place] [address] [place] Calcium [Mass/Vol] 8.3 mg/dL Low 8.5-10.5 [facility] Comment on above: Order Comment: Speci men Type: BLOOD SPECIMENOrdering Facility: [facility] Address: [address] [place] [address] Performed By: #### 2 4321-2 ####[facility] LABORATORYCLIA [id number] [place] [address] [place] Chloride [Moles/Vol] 95 mmol/L Low 98-107 [facility] Comment on above: Order Comment: Speci men Type: BLOOD SPECIMENOrdering Facility: [facility] Address: [address] [place] [address] Performed By: #### 2 4321-2 ####[facility] LABORATORYCLIA [id number] [place] [address] [place] CO2 [Moles/Vol] 29 mmol/L Normal 21-32 [facility] Comment on above: Order Comment: Speci men Type: BLOOD SPECIMENOrdering Facility: [facility] Address: [address] [place] [address] Performed By: #### 2 4321-2 ####[facility] LABORATORYCLIA [id number] [place] [address] [place] Creatinine [Mass/Vol] 5.48 mg/dL High 0.50-1.40 [facility] Comment on above: Order Comment: Speci men Type: BLOOD SPECIMENOrdering Facility: [facility] Address: [address] [place] [address] Result Comment: Macrina ents receiving either N-Acetylcysteine (NAC) or Metamizole prior to venipuncture, may have falsely depressed results. Performed By: #### 2 4321-2 ####[facility] LABORATORYCLIA [id number] [address] STATES OF [facility] ESTIMATED GLOMERULAR FILTRATION RATE 11 mL/min/1.73m??? Low >=60 [facility] Comment on above: Order Comment: Kelsi huff Type: BLOOD SPECIMENOrdering Facility: [facility] Address: [address] [place] [address] Result Comment: Caryl mated Glomerular Filtration Rate [...] actual GFR. Performed By: #### 2 4321-2 ####[facility] LABORATORYCLIA [id number] [place] [address] [place] Glucose [Mass/Vol] 125 mg/dL High 70-100 [facility] Comment on above: Order Comment: Kelsi huff Type: BLOOD SPECIMENOrdering Facility: [facility] Address: [address] [place] [address] Result Comment: The [place] [employer] (ADA) provides guidance for cutoff [...] Standards of Medical Care in Diabetes 2016, [place] [employer]. Diabetes Care. 2016.39(Suppl 1).Results may be falsely elevated after the administration of Sulfapyridine.Results may be falsely depressed after the administration of Sulfasalazine. Performed By: #### 2 4321-2 ####[facility] LABORATORYCLIA [id number] [place] [id number] [place] Potassium [Moles/Vol] 4.2 mmol/L Normal 3.5-5.1 [facility] Comment on above: Order Comment: Speci men Type: BLOOD SPECIMENOrdering Facility: [facility] Address: [address] [place] [address] Result Comment: Slig ht Hemolysis, Result may be affected. Performed By: #### 2 4321-2 ####[facility] LABORATORYCLIA [id number] [place] [address] [place] Sodium [Moles/Vol] 134 mmol/L Low 136-145 [facility] Comment on above: Order Comment: Speci men Type: BLOOD SPECIMENOrdering Facility: [facility] Address: [address] [place] [address] Performed By: #### 2 4321-2 ####[facility] LABORATORYCLIA [id number] [place] [address] [place] Urea nitrogen [Mass/Vol] 67 mg/dL High 7-26 [facility] Comment on above: Order Comment: Speci men Type: BLOOD SPECIMENOrdering Facility: [facility] Address: [address] [place] [address] Performed By: #### 2 4321-2 ####[facility] LABORATORYCLIA [id number] [address] [place] CBC W Auto Differential pane l (Bld)on 05-01-2022 Band form neutrophils/100 WBC (Bld) 1.0 % Normal [facility] Comment on above: Order Comment: Speci men Type: BLOOD SPECIMENOrdering Facility: [facility] Address: [address] [place] [address] Performed By: #### 5 7021-8 ####[facility] LABORATORYCLIA [id number] [address] [place] Basophils/100 WBC (Bld) 0.0 % Normal [facility] Comment on above: Order Comment: Speci men Type: BLOOD SPECIMENOrdering Facility: [facility] Address: [address] [place] [address] Performed By: #### 5 7021-8 ####[facility] LABORATORYCLIA [id number] [place] [address] [place] BLAST% 0.0 % Normal <=0.0 [facility] Comment on above: Order Comment: Speci men Type: BLOOD SPECIMENOrdering Facility: [facility] Address: [address] [place] [address] Performed By: #### 5 7021-8 ####[facility] LABORATORYCLIA [id number] [place] [address] [place] Dacrocytes LM Ql (Bld) Few Normal [facility] Comment on above: Order Comment: Speci men Type: BLOOD SPECIMENOrdering Facility: [facility] Address: [address] [place] [address] Performed By: #### 5 7021-8 ####[facility] LABORATORYIA [id number] [address] [place] Differential cell count method Nom (Bld) Manual Normal [facility] Comment on above: Order Comment: Speci men Type: BLOOD SPECIMENOrdering Facility: [facility] Address: [address] [place] [address] Performed By: #### 5 7021-8 ####[facility] LABORATORYIA [id number] [place] [address] [place] Eosinophils (Bld) [#/Vol] 0.24 10*3/uL Normal <0.46 [facility] Comment on above: Order Comment: Speci men Type: BLOOD SPECIMENOrdering Facility: [facility] Address: [address] [place] [address] Performed By: #### 5 7021-8 ####[facility] LABORATORYIA [id number] [place] [address] [place] Eosinophils/100 WBC (Bld) 2.0 % Normal [facility] Comment on above: Order Comment: Speci men Type: BLOOD SPECIMENOrdering Facility: [facility] Address: [address] [place] [address] Performed By: #### 5 7021-8 ####[facility] LABORATORYCLIA [id number] [place] [address] [place] Erythrocyte distribution width (RBC) [Ratio] 15.0 % Normal 11.5-15.0 [facility] Comment on above: Order Comment: Speci men Type: BLOOD SPECIMENOrdering Facility: [facility] Address: [address] [place] [address] Performed By: #### 5 7021-8 ####[facility] LABORATORYCLIA [id number] [place] [address] [place] Hematocrit (Bld) [Volume fraction] 28.3 % Low 39.0-51.0 [facility] Comment on above: Order Comment: Speci men Type: BLOOD SPECIMENOrdering Facility: [facility] Address: [address] [place] [address] Performed By: #### 5 7021-8 ####[facility] LABORATORYCLIA [id number] [place] [address] [place] Hemoglobin (Bld) [Mass/Vol] 9.6 g/dL Low 13.0-17.0 [facility] Comment on above: Order Comment: Speci men Type: BLOOD SPECIMENOrdering Facility: [facility] Address: [address] [place] [address] Performed By: #### 5 7021-8 ####[facility] LABORATORYCLIA [id number] [place] [address] [place] Lymphocytes (Bld) [#/Vol] 2.52 10*3/uL Normal 1.00-4.00 [facility] Comment on above: Order Comment: Speci men Type: BLOOD SPECIMENOrdering Facility: [facility] Address: [address] [place] [address] Performed By: #### 5 7021-8 ####[facility] LABORATORYCLIA [id number] [address] [place] Lymphocytes/100 WBC (Bld) 21.0 % Normal [facility] Comment on above: Order Comment: Speci men Type: BLOOD SPECIMENOrdering Facility: [facility] Address: [address] [place] [address] Performed By: #### 5 7021-8 ####[facility] LABORATORYCLIA [id number] [address] Lymphocytes/100 WBC (Bld) 0.0 % Normal [facility] Comment on above: Order Comment: Speci men Type: BLOOD SPECIMENOrdering Facility: [facility] Address: [address] [place] [address] Performed By: #### 5 7021-8 ####[facility] LABORATORYCLIA [id number] [address] LYMPHOMA CELL 0.0 % Normal [facility] Comment on above: Order Comment: Speci men Type: BLOOD SPECIMENOrdering Facility: [facility] Address: [address] [place] [address] Performed By: #### 5 7021-8 ####[facility] LABORATORYCLIA [id number] [address] [place] MCH (RBC) [Entitic mass] 31.5 pg Normal 26.0-34.0 [facility] Comment on above: Order Comment: Speci men Type: BLOOD SPECIMENOrdering Facility: [facility] Address: [address] [place] [address] Performed By: #### 5 7021-8 ####[facility] LABORATORYCLIA [id number] [address] MCHC (RBC) [Mass/Vol] 33.9 g/dL Normal 30.5-36.0 [facility] Comment on above: Order Comment: Speci men Type: BLOOD SPECIMENOrdering Facility: [facility] Address: [address] [place] [address] Performed By: #### 5 7021-8 ####[facility] LABORATORYCLIA [id number] [address] [place] MCV (RBC) [Entitic vol] 92.8 fL Normal 80.0-100.0 [facility] Comment on above: Order Comment: Speci men Type: BLOOD SPECIMENOrdering Facility: [facility] Address: [address] [place] [address] Performed By: #### 5 7021-8 ####[facility] LABORATORYCLIA [id number] [address] [place] MEGAKARYOCYTIC FRAGMENTS 0.0 /100 WBC Normal [facility] Comment on above: Order Comment: Speci men Type: BLOOD SPECIMENOrdering Facility: [facility] Address: [address] [place] [address] Performed By: #### 5 7021-8 ####[facility] LABORATORYCLIA [id number] [place] [address] [place] Metamyelocytes/100 WBC (Bld) 2.0 % Normal [facility] Comment on above: Order Comment: Speci men Type: BLOOD SPECIMENOrdering Facility: [facility] Address: [address] [place] [address] Performed By: #### 5 7021-8 ####[facility] LABORATORYCLIA [id number] [place] [address] [place] MYELO% 2.0 % Normal [facility] Comment on above: Order Comment: Speci men Type: BLOOD SPECIMENOrdering Facility: [facility] Address: [address] [place] [address] Performed By: #### 5 7021-8 ####[facility] LABORATORYCLIA [id number] [place] [address] [place] Neutrophils (Bld) [#/Vol] 7.45 10*3/uL Normal 1.45-7.50 [facility] Comment on above: Order Comment: Speci men Type: BLOOD SPECIMENOrdering Facility: [facility] Address: [address] [place] [address] Performed By: #### 5 7021-8 ####[facility] LABORATORYCLIA [id number] [place] [address] [place] Neutrophils/100 WBC (Bld) 61.0 % Normal [facility] Comment on above: Order Comment: Speci men Type: BLOOD SPECIMENOrdering Facility: [facility] Address: [address] [place] [address] Performed By: #### 5 7021-8 ####[facility] LABORATORYCLIA [id number] [place] [address] [place] Nucleated RBC/100 WBC (Bld) [Ratio] 0.0 /100 WBC Normal [facility] Comment on above: Order Comment: Speci men Type: BLOOD SPECIMENOrdering Facility: [facility] Address: [address] [place] [address] Performed By: #### 5 7021-8 ####[facility] LABORATORYCLIA [id number] [address] [place] OTHER CELLS 0.0 % Normal [facility] Comment on above: Order Comment: Speci men Type: BLOOD SPECIMENOrdering Facility: [facility] Address: [address] [place] [address] Performed By: #### 5 7021-8 ####[facility] LABORATORYCLIA [id number] [place] [address] [place] Ovalocytes LM Ql (Bld) Few Normal [facility] Comment on above: Order Comment: Speci men Type: BLOOD SPECIMENOrdering Facility: [facility] Address: [address] [place] [address] Performed By: #### 5 7021-8 ####[facility] LABORATORYCLIA [id number] [address] [place] PLASMA CELLS 0.0 % Normal [facility] Comment on above: Order Comment: Speci men Type: BLOOD SPECIMENOrdering Facility: [facility] Address: [address] [place] [address] Performed By: #### 5 7021-8 ####[facility] LABORATORYCLIA [id number] [address] [place] PLATELET ESTIMATE Adequate Normal [facility] Comment on above: Order Comment: Speci men Type: BLOOD SPECIMENOrdering Facility: [facility] Address: [address] Performed By: #### 5 7021-8 ####[facility] LABORATORYCLIA [id number] [place] [address] [place] Platelet mean volume (Bld) [Entitic vol] 9.1 fL Normal 9.0-12.7 [facility] Comment on above: Order Comment: Speci men Type: BLOOD SPECIMENOrdering Facility: [facility] Address: [address] [place], [place] [address] Performed By: #### 5 7021-8 ####[facility] LABORATORYCLIA [id number] [place] [address] [place] Platelets (Bld) [#/Vol] 265 10*3/uL Normal 150-400 [facility] Comment on above: Order Comment: Speci men Type: BLOOD SPECIMENOrdering Facility: [facility] Address: [address] [place], [place] [address] Performed By: #### 5 7021-8 ####[facility] LABORATORYCLIA [id number] [place] [address] [place] Polychromasia LM Ql (Bld) Slight Normal [facility] Comment on above: Order Comment: Speci men Type: BLOOD SPECIMENOrdering Facility: [facility] Address: [address] Performed By: #### 5 7021-8 ####[facility] LABORATORYCLIA [id number] [place] [address] [place] PROMYL% 0.0 % Normal [facility] Comment on above: Order Comment: Speci men Type: BLOOD SPECIMENOrdering Facility: [facility] Address: [address] Performed By: #### 5 7021-8 ####[facility] LABORATORYCLIA [id number] [address] OF [facility] RBC (Bld) [#/Vol] 3.05 10*6/uL Low 4.20-6.00 [facility] Comment on above: Order Comment: Speci men Type: BLOOD SPECIMENOrdering Facility: [facility] Address: [address] [place] [address] Performed By: #### 5 7021-8 ####[facility] LABORATORYCLIA [id number] [address] RED CELL MORPH Reviewed: see result s of individual morphologies Normal [facility] Comment on above: Order Comment: Speci men Type: BLOOD SPECIMENOrdering Facility: [facility] Address: [address] [place] [address] Performed By: #### 5 7021-8 ####[facility] LABORATORYCLIA [id number] [address] Variant lymphocytes/100 WBC (Bld) 0.0 % Normal [facility] Comment on above: Order Comment: Speci men Type: BLOOD SPECIMENOrdering Facility: [facility] Address: [address] [place] [address] Performed By: #### 5 7021-8 ####[facility] LABORATORYCLIA [id number] [address] WAM - ABS BASO 0.00 k/uL Normal <0.11 [facility] Comment on above: Order Comment: Speci men Type: BLOOD SPECIMENOrdering Facility: [facility] Address: [address] [place] [address] Performed By: #### 5 7021-8 ####[facility] LABORATORYCLIA [id number] [address] WAM - ABS MONO 1.32 k/uL High <0.87 [facility] Comment on above: Order Comment: Speci men Type: BLOOD SPECIMENOrdering Facility: [facility] Address: [address] [place] [address] Performed By: #### 5 7021-8 ####[facility] LABORATORYCLIA [id number] [place] [address] [place] WAM - MONO% 11.0 % Normal [facility] Comment on above: Order Comment: Speci men Type: BLOOD SPECIMENOrdering Facility: [facility] Address: [address] [place] [address] Performed By: #### 5 7021-8 ####[facility] LABORATORYCLIA [id number] [place] [address] [place] WAM ABSOLUTE NRBC <0.01 Normal <0.01 [facility] Comment on above: Order Comment: Speci men Type: BLOOD SPECIMENOrdering Facility: [facility] Address: [address] [place] [address] Performed By: #### 5 7021-8 ####[facility] LABORATORYCLIA [id number] [place] [address] [place] WBC (Bld) [#/Vol] 12.02 10*3/uL High 3.70-11.00 [facility] Comment on above: Order Comment: Speci men Type: BLOOD SPECIMENOrdering Facility: [facility] Address: [address] [place] [address] Performed By: #### 5 7021-8 ####[facility] LABORATORYCLIA [id number] [address] [place] CONSULT PROGon 05-01-2022 CONSULT PROG Normal [facility] THERAPY NTon 05-01-2022 THERAPY NT Normal [facility] ALLIED HEALTHon 04-30-2022 ALLIED HEALTH Normal [facility] Basic metabolic 2000 panelon 04-30-2022 Anion gap [Moles/Vol] 8 mmol/L Normal 5-16 [facility] Comment on above: Order Comment: Speci men Type: BLOOD SPECIMENOrdering Facility: [facility] Address: [address] [place] [address] Performed By: #### 2 4321-2, 91263-4, 2777- ####[facility] LABORATORYCLIA [id number] [place] [id number] [place] Calcium [Mass/Vol] 8.3 mg/dL Low 8.5-10.5 [facility] Comment on above: Order Comment: Speci men Type: BLOOD SPECIMENOrdering Facility: [facility] Address: [address] [place] [address] Performed By: #### 2 4321-2, , 2776-08 ####[facility] LABORATORYCLIA [id number] [place] [id number] [place] Chloride [Moles/Vol] 96 mmol/L Low 98-107 [facility] Comment on above: Order Comment: Speci men Type: BLOOD SPECIMENOrdering Facility: [facility] Address: [address] [place] [address] Performed By: #### 2 4321-2, , 2776-08 ####[facility] LABORATORYCLIA [id number] [place] [address] [place] CO2 [Moles/Vol] 28 mmol/L Normal 21-32 [facility] Comment on above: Order Comment: Speci men Type: BLOOD SPECIMENOrdering Facility: [facility] Address: [address] [place] [address] Performed By: #### 2 4321-2, , 2776-08 ####[facility] LABORATORYCLIA [id number] [place] [address] [place] Creatinine [Mass/Vol] 4.08 mg/dL High 0.50-1.40 [facility] Comment on above: Order Comment: Speci men Type: BLOOD SPECIMENOrdering Facility: [facility] Address: [address] [place] [address] Result Comment: Macrina ents receiving either N-Acetylcysteine (NAC) or Metamizole prior to venipuncture, may have falsely depressed results. Performed By: #### 2 4321-2, , 2776-08 ####[facility] LABORATORYCLIA [id number] [place] [address] [place] ESTIMATED GLOMERULAR FILTRATION RATE 16 mL/min/1.73m??? Low >=60 [facility] Comment on above: Order Comment: Samanthamarcellus huff Type: BLOOD SPECIMENOrdering Facility: [facility] Address: [address] [place], [place] [address] Result Comment: Caryl mated Glomerular Filtration Rate [...] actual GFR. Performed By: #### 2 4321-2, 05315-6, 2777-1 ####[facility] LABORATORYCLIA [id number] [place] [address] [place] Glucose [Mass/Vol] 266 mg/dL High 70-100 [facility] Comment on above: Order Comment: Kelsi huff Type: BLOOD SPECIMENOrdering Facility: [facility] Address: [address] [place] [address] Result Comment: The [place] [employer] (ADA) provides guidance for cutoff [...] Standards of Medical Care in Diabetes 2016, [place] [employer]. Diabetes Care. 2016.39(Suppl 1).Results may be falsely elevated after the administration of Sulfapyridine.Results may be falsely depressed after the administration of Sulfasalazine. Performed By: #### 2 4321-2, 19238-0, 2777-1 ####[facility] LABORATORYCLIA [id number] [place] [address] [place] Potassium [Moles/Vol] 4.1 mmol/L Normal 3.5-5.1 [facility] Comment on above: Order Comment: Speci men Type: BLOOD SPECIMENOrdering Facility: [facility] Address: [address] [place] [address] Performed By: #### 2 4321-2, 42452-1, 2776- ####[facility] LABORATORYCLIA [id number] [place] [address] [place] Sodium [Moles/Vol] 132 mmol/L Low 136-145 [facility] Comment on above: Order Comment: Speci men Type: BLOOD SPECIMENOrdering Facility: [facility] Address: [address] [place] [address] Performed By: #### 2 4321-2, , 2776-08 ####[facility] LABORATORYCLIA [id number] [address] [place] Urea nitrogen [Mass/Vol] 44 mg/dL High 7-26 [facility] Comment on above: Order Comment: Speci men Type: BLOOD SPECIMENOrdering Facility: [facility] Address: [address] [place] [address] Performed By: #### 2 4321-2, , 2776-08 ####[facility] LABORATORYCLIA [id number] [place] [address] [place] CBC W Auto Differential pane l (Bld)on 04-30-2022 Basophils (Bld) [#/Vol] 0.03 10*3/uL Normal <0.11 [facility] Comment on above: Order Comment: Speci men Type: BLOOD SPECIMENOrdering Facility: [facility] Address: [address] [place] [address] Performed By: #### 5 7021-8 ####[facility] LABORATORYCLIA [id number] [place] [address] [place] Basophils/100 WBC (Bld) 0.2 % Normal [facility] Comment on above: Order Comment: Speci men Type: BLOOD SPECIMENOrdering Facility: [facility] Address: [address] [place] [address] Performed By: #### 5 7021-8 ####[facility] LABORATORYCLIA [id number] [place] [address] [place] Differential cell count method Nom (Bld) Auto Normal [facility] Comment on above: Order Comment: Speci men Type: BLOOD SPECIMENOrdering Facility: [facility] Address: [address] [place] [address] Performed By: #### 5 7021-8 ####[facility] LABORATORYCLIA [id number] [place] [address] [place] Eosinophils (Bld) [#/Vol] 0.08 10*3/uL Normal <0.46 [facility] Comment on above: Order Comment: Speci men Type: BLOOD SPECIMENOrdering Facility: [facility] Address: [address] [place] [address] Performed By: #### 5 7021-8 ####[facility] LABORATORYCLIA [id number] [place] [address] [place] Eosinophils/100 WBC (Bld) 0.6 % Normal [facility] Comment on above: Order Comment: Speci men Type: BLOOD SPECIMENOrdering Facility: [facility] Address: [address] [place] [address] Performed By: #### 5 7021-8 ####[facility] LABORATORYCLIA [id number] [place] [address] [place] Erythrocyte distribution width (RBC) [Ratio] 15.2 % High 11.5-15.0 [facility] Comment on above: Order Comment: Speci men Type: BLOOD SPECIMENOrdering Facility: [facility] Address: [address] [place] [address] Performed By: #### 5 7021-8 ####[facility] LABORATORYCLIA [id number] [address] [place] Hematocrit (Bld) [Volume fraction] 26.4 % Low 39.0-51.0 [facility] Comment on above: Order Comment: Speci men Type: BLOOD SPECIMENOrdering Facility: [facility] Address: [address] [place] [address] Performed By: #### 5 7021-8 ####[facility] LABORATORYCLIA [id number] [address] [place] Hemoglobin (Bld) [Mass/Vol] 8.6 g/dL Low 13.0-17.0 [facility] Comment on above: Order Comment: Speci men Type: BLOOD SPECIMENOrdering Facility: [facility] Address: [address] [place] [address] Performed By: #### 5 7021-8 ####[facility] LABORATORYIA [id number] [address] [place] IMMATURE GRAN % 2.1 % Normal [facility] Comment on above: Order Comment: Speci men Type: BLOOD SPECIMENOrdering Facility: [facility] Address: [address] [place] [address] Performed By: #### 5 7021-8 ####[facility] LABORATORYIA [id number] [address] [place] IMMATURE GRAN ABS 0.29 k/uL High <0.10 [facility] Comment on above: Order Comment: Speci men Type: BLOOD SPECIMENOrdering Facility: [facility] Address: [address] [place] [address] Performed By: #### 5 7021-8 ####[facility] LABORATORYIA [id number] [address] [place] Lymphocytes (Bld) [#/Vol] 1.02 10*3/uL Normal 1.00-4.00 [facility] Comment on above: Order Comment: Speci men Type: BLOOD SPECIMENOrdering Facility: [facility] Address: [address] [place], [place] [address] Performed By: #### 5 7021-8 ####[facility] LABORATORYCLIA [id number] [address] [place] Lymphocytes/100 WBC (Bld) 7.3 % Normal [facility] Comment on above: Order Comment: Speci men Type: BLOOD SPECIMENOrdering Facility: [facility] Address: [address] [place] [address] Performed By: #### 5 7021-8 ####[facility] LABORATORYCLIA [id number] [address] [place] MCH (RBC) [Entitic mass] 30.9 pg Normal 26.0-34.0 [facility] Comment on above: Order Comment: Speci men Type: BLOOD SPECIMENOrdering Facility: [facility] Address: [address] [place] [address] Performed By: #### 5 7021-8 ####[facility] LABORATORYCLIA [id number] [address] MCHC (RBC) [Mass/Vol] 32.6 g/dL Normal 30.5-36.0 [facility] Comment on above: Order Comment: Speci men Type: BLOOD SPECIMENOrdering Facility: [facility] Address: [address] [place] [address] Performed By: #### 5 7021-8 ####[facility] LABORATORYCLIA [id number] [address] [place] MCV (RBC) [Entitic vol] 95.0 fL Normal 80.0-100.0 [facility] Comment on above: Order Comment: Speci men Type: BLOOD SPECIMENOrdering Facility: [facility] Address: [address] [place] [address] Performed By: #### 5 7021-8 ####[facility] LABORATORYCLIA [id number] [address] [place] Monocytes (Bld) [#/Vol] 1.70 10*3/uL High <0.87 [facility] Comment on above: Order Comment: Speci men Type: BLOOD SPECIMENOrdering Facility: [place] [facility] Address: [address] [place], [place] [address] Performed By: #### 5 7021-8 ####[facility] LABORATORYCLIA [id number] [place] [address] [place] Monocytes/100 WBC (Bld) 12.1 % Normal [facility] Comment on above: Order Comment: Speci men Type: BLOOD SPECIMENOrdering Facility: [facility] Address: [address] [place], [place] [address] Performed By: #### 5 7021-8 ####[facility] LABORATORYCLIA [id number] [place] [address] [place] Neutrophils (Bld) [#/Vol] 10.94 10*3/uL High 1.45-7.50 [facility] Comment on above: Order Comment: Speci men Type: BLOOD SPECIMENOrdering Facility: [facility] Address: [address] [place], [place] [address] Performed By: #### 5 7021-8 ####[facility] LABORATORYCLIA [id number] [place] [address] [place] Neutrophils/100 WBC (Bld) 77.7 % Normal [facility] Comment on above: Order Comment: Speci men Type: BLOOD SPECIMENOrdering Facility: [facility] Address: [address] [place], [place] [address] Performed By: #### 5 7021-8 ####[facility] LABORATORYCLIA [id number] [place] [address] [place] Nucleated RBC (Bld) [#/Vol] 0.04 10*3/uL High <0.01 [facility] Comment on above: Order Comment: Speci men Type: BLOOD SPECIMENOrdering Facility: [facility] Address: [address] [place], [place] [address] Performed By: #### 5 7021-8 ####[facility] LABORATORYCLIA [id number] [place] [address] [place] Nucleated RBC/100 WBC (Bld) [Ratio] 0.3 /100 WBC Normal [facility] Comment on above: Order Comment: Speci men Type: BLOOD SPECIMENOrdering Facility: [facility] Address: [address] [place] [address] Performed By: #### 5 7021-8 ####[facility] LABORATORYCLIA [id number] [place] [address] [place] Platelet mean volume (Bld) [Entitic vol] 9.3 fL Normal 9.0-12.7 [facility] Comment on above: Order Comment: Speci men Type: BLOOD SPECIMENOrdering Facility: [facility] Address: [address] [place] [address] Performed By: #### 5 7021-8 ####[facility] LABORATORYIA [id number] [place] [address] [place] Platelets (Bld) [#/Vol] 233 10*3/uL Normal 150-400 [facility] Comment on above: Order Comment: Speci men Type: BLOOD SPECIMENOrdering Facility: [facility] Address: [address] [place] [address] Performed By: #### 5 7021-8 ####[facility] LABORATORYIA [id number] [place] [address] [place] RBC (Bld) [#/Vol] 2.78 10*6/uL Low 4.20-6.00 [facility] Comment on above: Order Comment: Speci men Type: BLOOD SPECIMENOrdering Facility: [facility] Address: [address] [place] [address] Performed By: #### 5 7021-8 ####[facility] LABORATORYCLIA [id number] [place] [address] [place] WBC (Bld) [#/Vol] 14.06 10*3/uL High 3.70-11.00 [facility] Comment on above: Order Comment: Speci men Type: BLOOD SPECIMENOrdering Facility: [facility] Address: [address] [place], [place] [address] Performed By: #### 5 7021-8 ####[facility] LABORATORYCLIA [id number] [place] [id number] [place] Calcium.ionized [Moles/Vol]o n 04-30-2022 Calcium.ionized (Bld) [Mass/Vol] 1.06 mmol/L Low 1.16-1.32 [facility] Comment on above: Order Comment: Speci men Type: BLOOD SPECIMENOrdering Facility: [facility] Address: [address] [place] [address] Performed By: #### 1 995-0 ####[facility] LABORATORYCLIA [id number] [place] [address] [place] Magnesium SerPl-ncon 04-30 Magnesium [Mass/Vol] 2.1 mg/dL Normal 1.6-2.6 [facility] Comment on above: Order Comment: Speci men Type: BLOOD SPECIMENOrdering Facility: [facility] Address: [address] [place] [address] Performed By: #### 2 4321-2, , 27702-24 ####[facility] LABORATORYCLIA [id number] [place] [address] [place] NURSING PROGon 04-30-2022 NURSING PROG Normal [facility] Phosphate SerPl-mCncon 04-30 Phosphate [Mass/Vol] 3.3 mg/dL Normal 2.5-4.9 [facility] Comment on above: Order Comment: Speci [facility] Type: BLOOD SPECIMENOrdering Facility: [facility] Address: [address] [place], [place] [address] Result Comment: Elev ated m-protein (paraprotein) levels in the serum may be exhibited in patients with monoclonal gammopathies, causing falsely elevated inorganic phosphorus results. Performed By: #### 2 4321-2, 26992-0, 2777-1 ####[facility] LABORATORYCLIA [id number] [place] [id number] [place] XR CHEST 1V FRONTALon 2021 XR CHEST 1V FRONTAL Normal [facility] Basic metabolic 2000 panelon 04-29-2022 Anion gap [Moles/Vol] 14 mmol/L Normal 5-16 [facility] Comment on above: Order Comment: Speci men Type: BLOOD SPECIMENOrdering Facility: [facility] Address: [address] [place] [address] Performed By: #### 2 432-2, ####[facility] LABORATORYCLIA [id number] [place] [id number] [place] Calcium [Mass/Vol] 8.7 mg/dL Normal 8.5-10.5 [facility] Comment on above: Order Comment: Speci men Type: BLOOD SPECIMENOrdering Facility: [facility] Address: [address] [place] [address] Performed By: #### 2 43208-28, ####[facility] LABORATORYCLIA [id number] [place] [address] [place] Chloride [Moles/Vol] 97 mmol/L Low 98-107 [facility] Comment on above: Order Comment: Speci men Type: BLOOD SPECIMENOrdering Facility: [facility] Address: [address] [place] [address] Performed By: #### 2 4322, ####[facility] LABORATORYCLIA [id number] [place] [id number] [place] CO2 [Moles/Vol] 25 mmol/L Normal 21-32 [facility] Comment on above: Order Comment: Speci men Type: BLOOD SPECIMENOrdering Facility: [facility] Address: [address] [place] [address] Performed By: #### 2 4322, ####[facility] LABORATORYCLIA [id number] [place] [id number] [place] Creatinine [Mass/Vol] 5.91 mg/dL High 0.50-1.40 [facility] Comment on above: Order Comment: Kelsi huff Type: BLOOD SPECIMENOrdering Facility: [facility] Address: [address] [place] [address] Result Comment: Macrina ents receiving either N-Acetylcysteine (NAC) or Metamizole prior to venipuncture, may have falsely depressed results. Performed By: #### 2 4321-2, ####[facility] LABORATORYCLIA [id number] [address] [place] ESTIMATED GLOMERULAR FILTRATION RATE 10 mL/min/1.73m??? Low >=60 [facility] Comment on above: Order Comment: Kelsi huff Type: BLOOD SPECIMENOrdering Facility: [facility] Address: [address] [place] [address] Result Comment: Caryl mated Glomerular Filtration Rate [...] actual GFR. Performed By: #### 2 4321-2, ####[facility] LABORATORYCLIA [id number] [place] [address] [place] Glucose [Mass/Vol] 225 mg/dL High 70-100 [facility] Comment on above: Order Comment: Kelsi huff Type: BLOOD SPECIMENOrdering Facility: [facility] Address: [address] [place] [address] Result Comment: The [place] [employer] (ADA) provides guidance for cutoff [...] Standards of Medical Care in Diabetes 2016, [place] [employer]. Diabetes Care. 2016.39(Suppl 1).Results may be falsely elevated after the administration of Sulfapyridine.Results may be falsely depressed after the administration of Sulfasalazine. Performed By: #### 2 432-2, 56949-0 ####[facility] LABORATORYCLIA [id number] [place] [address] [place] Potassium [Moles/Vol] 4.6 mmol/L Normal 3.5-5.1 [facility] Comment on above: Order Comment: Kelsi huff Type: BLOOD SPECIMENOrdering Facility: [facility] Address: [address] [place] [address] Performed By: #### 2 43208-28, ####[facility] LABORATORYCLIA [id number] [address] [place] Sodium [Moles/Vol] 136 mmol/L Normal 136-145 [facility] Comment on above: Order Comment: Kelsi huff Type: BLOOD SPECIMENOrdering Facility: [facility] Address: [address] [place] [address] Performed By: #### 2 43208-28, ####[facility] LABORATORYCLIA [id number] [place] [address] [place] Urea nitrogen [Mass/Vol] 71 mg/dL High 7-26 [facility] Comment on above: Order Comment: Samanthai daria Type: BLOOD SPECIMENOrdering Facility: [facility] Address: [address] [place] [address] Performed By: #### 2 4322, ####[facility] LABORATORYCLIA [id number] [place] [address] [place] CBC W Auto Differential pane l (Bld)on 04-29-2022 Basophils (Bld) [#/Vol] 0.04 10*3/uL Normal <0.11 [facility] Comment on above: Order Comment: Speci men Type: BLOOD SPECIMENOrdering Facility: [facility] Address: [address] [place] [address] Performed By: #### 5 7021-8 ####[facility] LABORATORYCLIA [id number] [place] [address] [place] Basophils/100 WBC (Bld) 0.2 % Normal [facility] Comment on above: Order Comment: Speci men Type: BLOOD SPECIMENOrdering Facility: [facility] Address: [address] [place] [address] Performed By: #### 5 7021-8 ####[facility] LABORATORYCLIA [id number] [address] [place] Differential cell count method Nom (Bld) Auto Normal [facility] Comment on above: Order Comment: Speci men Type: BLOOD SPECIMENOrdering Facility: [facility] Address: [address] [place] [address] Performed By: #### 5 7021-8 ####[facility] LABORATORYCLIA [id number] [place] [address] [place] Eosinophils (Bld) [#/Vol] 0.12 10*3/uL Normal <0.46 [facility] Comment on above: Order Comment: Speci men Type: BLOOD SPECIMENOrdering Facility: [facility] Address: [address] [place] [address] Performed By: #### 5 7021-8 ####[facility] LABORATORYCLIA [id number] [place] [address] [place] Eosinophils/100 WBC (Bld) 0.6 % Normal [facility] Comment on above: Order Comment: Speci men Type: BLOOD SPECIMENOrdering Facility: [facility] Address: [address] [place] [address] Performed By: #### 5 7021-8 ####[facility] LABORATORYCLIA [id number] [place] [address] [place] Erythrocyte distribution width (RBC) [Ratio] 15.6 % High 11.5-15.0 [facility] Comment on above: Order Comment: Speci men Type: BLOOD SPECIMENOrdering Facility: [facility] Address: [address] [place] [address] Performed By: #### 5 7021-8 ####[facility] LABORATORYCLIA [id number] [place] [address] [place] Hematocrit (Bld) [Volume fraction] 28.2 % Low 39.0-51.0 [facility] Comment on above: Order Comment: Speci men Type: BLOOD SPECIMENOrdering Facility: [facility] Address: [address] [place] [address] Performed By: #### 5 7021-8 ####[facility] LABORATORYCLIA [id number] [place] [address] [place] Hemoglobin (Bld) [Mass/Vol] 9.1 g/dL Low 13.0-17.0 [facility] Comment on above: Order Comment: Speci men Type: BLOOD SPECIMENOrdering Facility: [facility] Address: [address] [place] [address] Performed By: #### 5 7021-8 ####[facility] LABORATORYCLIA [id number] [place] [address] [place] IMMATURE GRAN % 1.2 % Normal [facility] Comment on above: Order Comment: Speci men Type: BLOOD SPECIMENOrdering Facility: [facility] Address: [address] [place] [address] Performed By: #### 5 7021-8 ####[facility] LABORATORYCLIA [id number] [place] [address] [place] IMMATURE GRAN ABS 0.23 k/uL High <0.10 [facility] Comment on above: Order Comment: Speci men Type: BLOOD SPECIMENOrdering Facility: [facility] Address: [address] [place] [address] Performed By: #### 5 7021-8 ####[facility] LABORATORYCLIA [id number] [place] [address] [place] Lymphocytes (Bld) [#/Vol] 0.68 10*3/uL Low 1.00-4.00 [facility] Comment on above: Order Comment: Speci men Type: BLOOD SPECIMENOrdering Facility: [facility] Address: [address] [place] [address] Performed By: #### 5 7021-8 ####[facility] LABORATORYCLIA [id number] [address] [place] Lymphocytes/100 WBC (Bld) 3.6 % Normal [facility] Comment on above: Order Comment: Speci men Type: BLOOD SPECIMENOrdering Facility: [facility] Address: [address] [place] [address] Performed By: #### 5 7021-8 ####[facility] LABORATORYCLIA [id number] [place] [address] [place] MCH (RBC) [Entitic mass] 30.7 pg Normal 26.0-34.0 [facility] Comment on above: Order Comment: Speci men Type: BLOOD SPECIMENOrdering Facility: [facility] Address: [address] [place] [address] Performed By: #### 5 7021-8 ####[facility] LABORATORYCLIA [id number] [place] [address] [place] MCHC (RBC) [Mass/Vol] 32.3 g/dL Normal 30.5-36.0 [facility] Comment on above: Order Comment: Speci men Type: BLOOD SPECIMENOrdering Facility: [facility] Address: [address] [place] [address] Performed By: #### 5 7021-8 ####[facility] LABORATORYCLIA [id number] [address] [place] MCV (RBC) [Entitic vol] 95.3 fL Normal 80.0-100.0 [facility] Comment on above: Order Comment: Speci men Type: BLOOD SPECIMENOrdering Facility: [facility] Address: [address] [place], [place] [address] Performed By: #### 5 7021-8 ####[facility] LABORATORYCLIA [id number] [place] [address] [place] Monocytes (Bld) [#/Vol] 1.30 10*3/uL High <0.87 [facility] Comment on above: Order Comment: Speci men Type: BLOOD SPECIMENOrdering Facility: [facility] Address: [address] [place], [place] [address] Performed By: #### 5 7021-8 ####[facility] LABORATORYCLIA [id number] [place] [address] [place] Monocytes/100 WBC (Bld) 6.8 % Normal [facility] Comment on above: Order Comment: Speci men Type: BLOOD SPECIMENOrdering Facility: [facility] Address: [address] [place], [place] [address] Performed By: #### 5 7021-8 ####[facility] LABORATORYCLIA [id number] [place] [address] [place] Neutrophils (Bld) [#/Vol] 16.77 10*3/uL High 1.45-7.50 [facility] Comment on above: Order Comment: Speci men Type: BLOOD SPECIMENOrdering Facility: [facility] Address: [address] [place], [place] [address] Performed By: #### 5 7021-8 ####[facility] LABORATORYCLIA [id number] [place] [address] [place] Neutrophils/100 WBC (Bld) 87.6 % Normal [facility] Comment on above: Order Comment: Speci men Type: BLOOD SPECIMENOrdering Facility: [facility] Address: [address] [place], [place] [address] Performed By: #### 5 7021-8 ####[facility] LABORATORYCLIA [id number] [place] [address] [place] Nucleated RBC (Bld) [#/Vol] 0.03 10*3/uL High <0.01 [facility] Comment on above: Order Comment: Speci men Type: BLOOD SPECIMENOrdering Facility: [facility] Address: [address] [place] [address] Performed By: #### 5 7021-8 ####[facility] LABORATORYCLIA [id number] [place] [address] [place] Nucleated RBC/100 WBC (Bld) [Ratio] 0.2 /100 WBC Normal [facility] Comment on above: Order Comment: Speci men Type: BLOOD SPECIMENOrdering Facility: [facility] Address: [address] [place] [address] Performed By: #### 5 7021-8 ####[facility] LABORATORYCLIA [id number] [place] [address] [place] Platelet mean volume (Bld) [Entitic vol] 9.7 fL Normal 9.0-12.7 [facility] Comment on above: Order Comment: Speci men Type: BLOOD SPECIMENOrdering Facility: [facility] Address: [address] [place] [address] Performed By: #### 5 7021-8 ####[facility] LABORATORYCLIA [id number] [place] [address] [place] Platelets (Bld) [#/Vol] 215 10*3/uL Normal 150-400 [facility] Comment on above: Order Comment: Speci men Type: BLOOD SPECIMENOrdering Facility: [facility] Address: [address] [place], [place] [address] Performed By: #### 5 7021-8 ####[facility] LABORATORYCLIA [id number] [place] [address] [place] RBC (Bld) [#/Vol] 2.96 10*6/uL Low 4.20-6.00 [facility] Comment on above: Order Comment: Speci men Type: BLOOD SPECIMENOrdering Facility: [facility] Address: [address] [place], [place] [address] Performed By: #### 5 7021-8 ####[facility] LABORATORYCLIA [id number] [place] [address] [place] WBC (Bld) [#/Vol] 19.14 10*3/uL High 3.70-11.00 [facility] Comment on above: Order Comment: Speci men Type: BLOOD SPECIMENOrdering Facility: [facility] Address: [address] [place] [place] [address] Performed By: #### 5 7021-8 ####[facility] LABORATORYCLIA [id number] [place] [address] [place] Magnesium SerPl-mCncon 04-29 Magnesium [Mass/Vol] 2.8 mg/dL High 1.6-2.6 [facility] Comment on above: Order Comment: Speci men Type: BLOOD SPECIMENOrdering Facility: [facility] Address: [address] [place] [place] [address] Performed By: #### 2 4321-2, 50377-8 ####[facility] LABORATORYCLIA [id number] [address] [place] ANES POSTPROC EVALon 022 ANES POSTPROC EVAL Normal [facility] ANES PRE-OPon 04-28-2022 ANES PRE-OP Normal [facility] CASE MANAGEMon 04-28-2022 CASE MANAGEM Normal [facility] CBC W Auto Differential pane l (Bld)on 04-28-2022 Band form neutrophils/100 WBC (Bld) 0.0 % [facility] Comment on above: Order Comment: Speci men Type: BLOOD SPECIMENOrdering Facility: [facility] Address: [address] [place] [address] Performed By: #### 5 7021-8 ####[facility] LABORATORYCLIA [id number] [place] [address] [place] Basophils/100 WBC (Bld) 0.0 % [facility] Comment on above: Order Comment: Speci men Type: BLOOD SPECIMENOrdering Facility: [facility] Address: [address] [place] [address] Performed By: #### 5 7021-8 ####[facility] LABORATORYCLIA [id number] [place] [address] [place] BLAST% 0.0 % Normal <=0.0 [facility] Comment on above: Order Comment: Speci men Type: BLOOD SPECIMENOrdering Facility: [facility] Address: [address] [place] [address] Performed By: #### 5 7021-8 ####[facility] LABORATORYCLIA [id number] [address] [place] Differential cell count method Nom (Bld) Manual Normal [facility] Comment on above: Order Comment: Speci men Type: BLOOD SPECIMENOrdering Facility: [facility] Address: [address] [place] [address] Performed By: #### 5 7021-8 ####[facility] LABORATORYCLIA [id number] [place] [address] [place] Eosinophils (Bld) [#/Vol] 0.18 10*3/uL Normal <0.46 [facility] Comment on above: Order Comment: Speci men Type: BLOOD SPECIMENOrdering Facility: [facility] Address: [address] [place] [address] Performed By: #### 5 7021-8 ####[facility] LABORATORYCLIA [id number] [place] [address] [place] Eosinophils/100 WBC (Bld) 1.0 % Normal [facility] Comment on above: Order Comment: Speci men Type: BLOOD SPECIMENOrdering Facility: [facility] Address: [address] [place] [address] Performed By: #### 5 7021-8 ####[facility] LABORATORYCLIA [id number] [place] [address] [place] Erythrocyte distribution width (RBC) [Ratio] 16.2 % High 11.5-15.0 [facility] Comment on above: Order Comment: Speci men Type: BLOOD SPECIMENOrdering Facility: [facility] Address: [address] [place], [place] [id number] Performed By: #### 5 7021-8 ####[facility] LABORATORYCLIA [id number] [place] [address] [place] Hematocrit (Bld) [Volume fraction] 27.2 % Low 39.0-51.0 [facility] Comment on above: Order Comment: Speci men Type: BLOOD SPECIMENOrdering Facility: [facility] Address: [address] [place], [place] [address] Performed By: #### 5 7021-8 ####[facility] LABORATORYCLIA [id number] [place] [address] [place] Hemoglobin (Bld) [Mass/Vol] 8.8 g/dL Low 13.0-17.0 [facility] Comment on above: Order Comment: Speci men Type: BLOOD SPECIMENOrdering Facility: [facility] Address: [address] [place], [place] [address] Performed By: #### 5 7021-8 ####[facility] LABORATORYCLIA [id number] [place] [address] [place] Lymphocytes (Bld) [#/Vol] 1.08 10*3/uL Normal 1.00-4.00 [facility] Comment on above: Order Comment: Speci men Type: BLOOD SPECIMENOrdering Facility: [facility] Address: [address] [place], [place] [address] Performed By: #### 5 7021-8 ####[facility] LABORATORYCLIA [id number] [place] [address] [place] Lymphocytes/100 WBC (Bld) 6.0 % Normal [facility] Comment on above: Order Comment: Speci men Type: BLOOD SPECIMENOrdering Facility: [facility] Address: [address] [place], [place] [address] Performed By: #### 5 7021-8 ####[facility] LABORATORYCLIA [id number] [address] [place] Lymphocytes/100 WBC (Bld) 0.0 % Normal [facility] Comment on above: Order Comment: Speci men Type: BLOOD SPECIMENOrdering Facility: [facility] Address: [address] [place] [address] Performed By: #### 5 7021-8 ####[facility] LABORATORYCLIA [id number] [address] LYMPHOMA CELL 0.0 % Normal [facility] Comment on above: Order Comment: Speci men Type: BLOOD SPECIMENOrdering Facility: [facility] Address: [address] [place] [address] Performed By: #### 5 7021-8 ####[facility] LABORATORYCLIA [id number] [address] [place] MCH (RBC) [Entitic mass] 31.3 pg Normal 26.0-34.0 [facility] Comment on above: Order Comment: Speci men Type: BLOOD SPECIMENOrdering Facility: [facility] Address: [address] [place] [address] Performed By: #### 5 7021-8 ####[facility] LABORATORYCLIA [id number] [address] [place] MCHC (RBC) [Mass/Vol] 32.4 g/dL Normal 30.5-36.0 [facility] Comment on above: Order Comment: Speci men Type: BLOOD SPECIMENOrdering Facility: [facility] Address: [address] [address] Performed By: #### 5 7021-8 ####[facility] LABORATORYCLIA [id number] [address] OF [facility] MCV (RBC) [Entitic vol] 96.8 fL Normal 80.0-100.0 [facility] Comment on above: Order Comment: Speci men Type: BLOOD SPECIMENOrdering Facility: [facility] Address: [address] [place] [address] Performed By: #### 5 7021-8 ####[facility] LABORATORYCLIA [id number] [address] [place] MEGAKARYOCYTIC FRAGMENTS 0.0 /100 WBC Normal [facility] Comment on above: Order Comment: Speci men Type: BLOOD SPECIMENOrdering Facility: [facility] Address: [address] [place] [address] Performed By: #### 5 7021-8 ####[facility] LABORATORYCLIA [id number] [address] [place] Metamyelocytes/100 WBC (Bld) 0.0 % Normal [facility] Comment on above: Order Comment: Speci men Type: BLOOD SPECIMENOrdering Facility: [facility] Address: [address] [place] [address] Performed By: #### 5 7021-8 ####[facility] LABORATORYCLIA [id number] [place] [address] [place] MYELO% 0.0 % Normal [facility] Comment on above: Order Comment: Speci men Type: BLOOD SPECIMENOrdering Facility: [facility] Address: [address] [place] [address] Performed By: #### 5 7021-8 ####[facility] LABORATORYCLIA [id number] [place] [address] [place] Neutrophils (Bld) [#/Vol] 16.08 10*3/uL High 1.45-7.50 [facility] Comment on above: Order Comment: Speci men Type: BLOOD SPECIMENOrdering Facility: [facility] Address: [address] [place] [address] Performed By: #### 5 7021-8 ####[facility] LABORATORYCLIA [id number] [place] [address] [place] Neutrophils/100 WBC (Bld) 89.0 % Normal [facility] Comment on above: Order Comment: Speci men Type: BLOOD SPECIMENOrdering Facility: [facility] Address: [address] [place] [address] Performed By: #### 5 7021-8 ####[facility] LABORATORYCLIA [id number] [address] Nucleated RBC/100 WBC (Bld) [Ratio] 0.0 /100 WBC Normal [facility] Comment on above: Order Comment: Speci men Type: BLOOD SPECIMENOrdering Facility: [facility] Address: [address] [place] [address] Performed By: #### 5 7021-8 ####[facility] LABORATORYCLIA [id number] [address] OTHER CELLS 0.0 % Normal [facility] Comment on above: Order Comment: Speci men Type: BLOOD SPECIMENOrdering Facility: [facility] Address: [address] [place] [address] Performed By: #### 5 7021-8 ####[facility] LABORATORYCLIA [id number] [address] STATES [facility] PLASMA CELLS 0.0 % Normal [facility] Comment on above: Order Comment: Speci men Type: BLOOD SPECIMENOrdering Facility: [facility] Address: [address] [place] [address] Performed By: #### 5 7021-8 ####[facility] LABORATORYCLIA [id number] [address] [place] PLATELET ESTIMATE Adequate Normal [facility] Comment on above: Order Comment: Speci men Type: BLOOD SPECIMENOrdering Facility: [facility] Address: [address] [place] [address] Performed By: #### 5 7021-8 ####[facility] LABORATORYCLIA [id number] [address] [place] Platelet mean volume (Bld) [Entitic vol] 9.5 fL Normal 9.0-12.7 [facility] Comment on above: Order Comment: Speci men Type: BLOOD SPECIMENOrdering Facility: [facility] Address: [address] [place] [address] Performed By: #### 5 7021-8 ####[facility] LABORATORYCLIA [id number] [address] Platelets (Bld) [#/Vol] 177 10*3/uL Normal 150-400 [facility] Comment on above: Order Comment: Speci men Type: BLOOD SPECIMENOrdering Facility: [facility] Address: [address] [place] [address] Performed By: #### 5 7021-8 ####[facility] LABORATORYCLIA [id number] [address] Polychromasia LM Ql (Bld) Slight Normal [facility] Comment on above: Order Comment: Speci men Type: BLOOD SPECIMENOrdering Facility: [facility] Address: [address] [place] [address] Performed By: #### 5 7021-8 ####[facility] LABORATORYCLIA [id number] [address] OF [facility] PROMYL% 0.0 % Normal [facility] Comment on above: Order Comment: Speci men Type: BLOOD SPECIMENOrdering Facility: [facility] Address: [address] [place] [address] Performed By: #### 5 7021-8 ####[facility] LABORATORYCLIA [id number] [place] [address] [place] RBC (Bld) [#/Vol] 2.81 10*6/uL Low 4.20-6.00 [facility] Comment on above: Order Comment: Speci men Type: BLOOD SPECIMENOrdering Facility: [facility] Address: [address] [place] [address] Performed By: #### 5 7021-8 ####[facility] LABORATORYCLIA [id number] [address] [place] RED CELL MORPH Reviewed: see result s of individual morphologies Normal [facility] Comment on above: Order Comment: Speci men Type: BLOOD SPECIMENOrdering Facility: [facility] Address: [address] [place] [address] Performed By: #### 5 7021-8 ####[facility] LABORATORYCLIA [id number] [place] [address] [place] Variant lymphocytes/100 WBC (Bld) 0.0 % Normal [facility] Comment on above: Order Comment: Speci men Type: BLOOD SPECIMENOrdering Facility: [facility] Address: [address] [place] [address] Performed By: #### 5 7021-8 ####[facility] LABORATORYCLIA [id number] [address] OF [facility] WAM - ABS BASO 0.00 k/uL Normal <0.11 [facility] Comment on above: Order Comment: Speci men Type: BLOOD SPECIMENOrdering Facility: [facility] Address: [address] [place] [address] Performed By: #### 5 7021-8 ####[facility] LABORATORYCLIA [id number] [address] [place] WAM - ABS MONO 0.72 k/uL Normal <0.87 [facility] Comment on above: Order Comment: Speci men Type: BLOOD SPECIMENOrdering Facility: [facility] Address: [address] [place] [address] Performed By: #### 5 7021-8 ####[facility] LABORATORYCLIA [id number] [address] [place] WAM - MONO% 4.0 % Normal [facility] Comment on above: Order Comment: Speci men Type: BLOOD SPECIMENOrdering Facility: [facility] Address: [address] [place] [address] Performed By: #### 5 7021-8 ####[facility] LABORATORYCLIA [id number] [address] [place] WAM ABSOLUTE NRBC <0.01 Normal <0.01 [facility] Comment on above: Order Comment: Speci men Type: BLOOD SPECIMENOrdering Facility: [facility] Address: [address] [place] [address] Performed By: #### 5 7021-8 ####[facility] LABORATORYCLIA [id number] [place] [id number] [place] WBC (Bld) [#/Vol] 18.07 10*3/uL High 3.70-11.00 [facility] Comment on above: Order Comment: Speci men Type: BLOOD SPECIMENOrdering Facility: [facility] Address: [address] [place] [address] Performed By: #### 5 7021-8 ####[facility] LABORATORYCLIA [id number] [place] [address] [place] Calcium.ionized [Moles/Vol]o n 04-28-2022 Calcium.ionized (Bld) [Mass/Vol] 1.10 mmol/L Low 1.16-1.32 [facility] Comment on above: Order Comment: Speci men Type: BLOOD SPECIMENOrdering Facility: [facility] Address: [address] [place] [address] Performed By: #### 1 995-0 ####[facility] LABORATORYCLIA [id number] [place] [id number] [place] Comprehensive metabolic 2000 panelon 04-28-2022 Albumin [Mass/Vol] 2.9 g/dL Low 3.2-5.0 [facility] Comment on above: Order Comment: Speci men Type: BLOOD SPECIMENOrdering Facility: [facility] Address: [address] [place] [address] Performed By: #### 2 4323-8, 53399-0, 2777-1 ####[facility] LABORATORYCLIA [id number] [place] [id number] [place] ALP [Catalytic activity/Vol] 107 U/L Normal 45-117 [facility] Comment on above: Order Comment: Speci men Type: BLOOD SPECIMENOrdering Facility: [facility] Address: [address] [place], [place] [address] Performed By: #### 2 4323-8, , 2776-08 ####[facility] LABORATORYCLIA [id number] [place] [id number] [place] ALT [Catalytic activity/Vol] 38 U/L Normal 13-61 [facility] Comment on above: Order Comment: Speci men Type: BLOOD SPECIMENOrdering Facility: [facility] Address: [address] [place], [place] [address] Result Comment: Resu lts may be falsely depressed after the administration of Sulfasalazine and/or Sulfapyridine. Performed By: #### 2 4323-8, , 2776-08 ####[facility] LABORATORYCLIA [id number] [place] [id number] [place] [facility] Anion gap [Moles/Vol] 13 mmol/L Normal 5-16 [facility] Comment on above: Order Comment: Speci men Type: BLOOD SPECIMENOrdering Facility: [facility] Address: [address] [place], [place] [address] Performed By: #### 2 4323-8, , 2776-08 ####[facility] LABORATORYCLIA [id number] [place] [address] [place] AST [Catalytic activity/Vol] 39 U/L High 8-34 [facility] Comment on above: Order Comment: Speci [facility] Type: BLOOD SPECIMENOrdering Facility: [facility] Address: [address] [place], [place] [address] Result Comment: Resu lts may be falsely depressed after the administration of Sulfasalazine and/or Sulfapyridine. Performed By: #### 2 4323-8, , 2776-08 ####[facility] LABORATORYCLIA [id number] [place] [id number] [place] Bilirubin [Mass/Vol] 1.0 mg/dL Normal 0.2-1.0 [facility] Comment on above: Order Comment: Speci men Type: BLOOD SPECIMENOrdering Facility: [facility] Address: [address] Performed By: #### 2 4323-8, , 2776-08 ####[facility] LABORATORYCLIA [id number] [place] [id number] [place] Calcium [Mass/Vol] 9.3 mg/dL Normal 8.5-10.5 [facility] Comment on above: Order Comment: Speci men Type: BLOOD SPECIMENOrdering Facility: [facility] Address: [address] [place], [place] [address] Performed By: #### 2 4323-8, , 2776-08 ####[facility] LABORATORYCLIA [id number] [place] [address] [place] Chloride [Moles/Vol] 99 mmol/L Normal 98-107 [facility] Comment on above: Order Comment: Speci men Type: BLOOD SPECIMENOrdering Facility: [facility] Address: [facility] [place] Performed By: #### 2 4323-8, , 2776-08 ####[facility] LABORATORYCLIA [id number] [place] [address] [place] CO2 [Moles/Vol] 27 mmol/L Normal 21-32 [facility] Comment on above: Order Comment: Speci men Type: BLOOD SPECIMENOrdering Facility: [facility] Address: [address] Performed By: #### 2 4323-8, , 2776-08 ####[facility] LABORATORYCLIA [id number] [place] [address] [place] Creatinine [Mass/Vol] 4.26 mg/dL High 0.50-1.40 [facility] Comment on above: Order Comment: Speci men Type: BLOOD SPECIMENOrdering Facility: [facility] Address: [address] [id number] Result Comment: Macrina ents receiving either N-Acetylcysteine (NAC) or Metamizole prior to venipuncture, may have falsely depressed results. Performed By: #### 2 4323-8, 63249-6, 2776-08 ####[facility] LABORATORYCLIA [id number] [place] [id number] [place] ESTIMATED GLOMERULAR FILTRATION RATE 15 mL/min/1.73m??? Low >=60 [facility] Comment on above: Order Comment: Kelsi huff Type: BLOOD SPECIMENOrdering Facility: [facility] Address: [address] [phone] Result Comment: Caryl mated Glomerular Filtration Rate [...] actual GFR. Performed By: #### 2 4323-8, 33175-3, 2776-08 ####[facility] LABORATORYCLIA [id number] [place] [address] [place] Glucose [Mass/Vol] 112 mg/dL High 70-100 [facility] Comment on above: Order Comment: Kelsi huff Type: BLOOD SPECIMENOrdering Facility: [facility] Address: [address] [phone] Result Comment: The [place] [employer] (ADA) provides guidance for cutoff [...] Standards of Medical Care in Diabetes 2016, [place] [employer]. Diabetes Care. 2016.39(Suppl 1).Results may be falsely elevated after the administration of Sulfapyridine.Results may be falsely depressed after the administration of Sulfasalazine. Performed By: #### 2 4323-8, , 2776-08 ####[facility] LABORATORYCLIA [id number] [place] [id number] [place] Potassium [Moles/Vol] 4.0 mmol/L Normal 3.5-5.1 [facility] Comment on above: Order Comment: Speci men Type: BLOOD SPECIMENOrdering Facility: [facility] Address: [address] [place] [address] Performed By: #### 2 4323-8, , 2776-08 ####[facility] LABORATORYCLIA [id number] [place] [id number] [place] Protein [Mass/Vol] 6.0 g/dL Normal 6.0-8.5 [facility] Comment on above: Order Comment: Speci men Type: BLOOD SPECIMENOrdering Facility: [facility] Address: [address] [place] [address] Performed By: #### 2 4323-8, , 2776-08 ####[facility] LABORATORYCLIA [id number] [place] [id number] [place] Sodium [Moles/Vol] 139 mmol/L Normal 136-145 [facility] Comment on above: Order Comment: Speci men Type: BLOOD SPECIMENOrdering Facility: [facility] Address: [address] [place] [phone] Performed By: #### 2 4323-8, , 2776-08 ####[facility] LABORATORYCLIA [id number] [place] [id number] [place] Urea nitrogen [Mass/Vol] 46 mg/dL High 7-26 [facility] Comment on above: Order Comment: Speci men Type: BLOOD SPECIMENOrdering Facility: [facility] Address: [address] [place] [address] Performed By: #### 2 4323-8, 18813-3, 2777-1 ####[facility] LABORATORYCLIA [id number] [place] [id number] [facility] Magnesium SerPl-mCncon 04-28 Magnesium [Mass/Vol] 2.3 mg/dL Normal 1.6-2.6 [facility] Comment on above: Order Comment: Kelsi huff Type: BLOOD SPECIMENOrdering Facility: [facility] Address: [address] [place] [address] Performed By: #### 2 4323-8, 92874-2, 2777-1 ####[facility] LABORATORYCLIA [id number] [place] [id number] [facility] OPERATIVE NOon 04-28-2022 OPERATIVE NO Normal [facility] PT panel Coag (PPP)on 2021 INR Coag (PPP) [Relative time] 1.0 {INR} Normal 0.9-1.1 [facility] Comment on above: Order Comment: Kelsi huff Type: BLOOD SPECIMENOrdering Facility: [facility] Address: [address] [place] [address] Result Comment: Catherine min K Antagonist (VKA) Therapeutic Range: INR 2 to 3 (Target INR of 2.5)Note: For patients treated with VKA drugs, such as warfarin, the [place] [employer] 2012 Guideline recommends [...] 70: 252-289 Performed By: #### 3 4528-0, 33512-6 ####[facility] LABORATORYCLIA [id number] [place] [address] [place] PT Coag (PPP) [Time] 11.1 s Normal 9.5-12.0 [facility] Comment on above: Order Comment: Speci men Type: BLOOD SPECIMENOrdering Facility: [facility] Address: [address] [place] [address] Performed By: #### 3 4528-0, 27967-4 ####[facility] LABORATORYCLIA [id number] [address] [place] Phosphate SerPl-mCncon 04-28 Phosphate [Mass/Vol] 4.2 mg/dL Normal 2.5-4.9 [facility] Comment on above: Order Comment: Speci men Type: BLOOD SPECIMENOrdering Facility: [facility] Address: [address] [place] [address] Result Comment: Elev ated m-protein (paraprotein) levels in the serum may be exhibited in patients with monoclonal gammopathies, causing falsely elevated inorganic phosphorus results. Performed By: #### 2 4323-8, 97859-7, 2777-1 ####[facility] LABORATORYCLIA [id number] [address] [place] TYPE + SCREENon 04-28-2022 ABO O Normal [facility] Comment on above: Order Comment: Speci men Type: BLOOD SPECIMENOrdering Facility: [facility] Address: [address] [place] [address] Performed By: #### T SCR ####[facility] BLOOD BANKCLIA [id number] [address] [place] HISTORICAL AB SCR STATUS Negative Normal [facility] Comment on above: Order Comment: Speci men Type: BLOOD SPECIMENOrdering Facility: [facility] Address: [address] [place] [address] Performed By: #### T SCR ####[facility] BLOOD BANKCLIA [id number] [address] Rh Nom (Bld) Indeterminate Rh Normal [facility] Comment on above: Order Comment: Speci men Type: BLOOD SPECIMENOrdering Facility: [facility] Address: [address] [place] [address] [place] [address] Result Comment: Macrina ent Received Rh Pos RBCs Performed By: #### T SCR ####[facility] BLOOD BANKCLIA [id number] [address] TYPE AND SCREEN EXPIRATION 05/01/2022 23:59 Normal [facility] Comment on above: Order Comment: Speci men Type: BLOOD SPECIMENOrdering Facility: [facility] Address: [address] [place] [address] Performed By: #### T SCR ####[facility] BLOOD BANKCLIA [id number] [address] OF [facility] XR FLUOROSCOPYon 04-28-2022 XR FLUOROSCOPY Normal [facility] aPTT PPPon 04-28-2022 aPTT Coag (PPP) [Time] 27.9 s Normal 22.0-31.5 [facility] Comment on above: Order Comment: Speci men Type: BLOOD SPECIMENOrdering Facility: [facility] Address: [address] [place] [address] Result Comment: Ther apeutic Heparin Reference Range:High [...] the PTT. Performed By: #### 3 4528-0, 91767-5 ####[facility] LABORATORYCLIA [id number] [address] [place] ALLIED HEALTHon 04-27-2022 ALLIED HEALTH [facility] HEALTH [facility] ARTERIAL BLOOD GASESon 04-27 BASE DEFICIT, ARTERIAL -6 mmol/L Low -2-0 [facility] Comment on above: Order Comment: Speci men Type: ARTERIAL BLOOD SPECIMENOrdering Facility: [facility] Address: [address] [place] [address] Performed By: #### A LLBG ####[facility] THERAPYCLIA [id number] [address] Body temperature 98.78 [degF] Normal [facility] Comment on above: Order Comment: Speci men Type: ARTERIAL BLOOD SPECIMENOrdering Facility: [facility] Address: [address] [place] [address] Performed By: #### A LLBG ####[facility] THERAPYCLIA [id number] [place] [address] [place] Calcium.ionized (Bld) [Mass/Vol] 1.16 mmol/L Normal 1.08-1.30 [facility] Comment on above: Order Comment: Speci men Type: ARTERIAL BLOOD SPECIMENOrdering Facility: [facility] Address: [address] [place] [address] Performed By: #### A LLBG ####[facility] THERAPYCLIA [id number] [address] [place] Carboxyhemoglobin (BldA) [Mass fraction] 0.6 % Normal 0.0-2.0 [facility] Comment on above: Order Comment: Speci men Type: ARTERIAL BLOOD SPECIMENOrdering Facility: [facility] Address: [address] [place], [place] [address] Result Comment: Carb oxyhemoglobin Reference Range for Smokers: 2.0-8.0% Performed By: #### A LLBG ####[facility] THERAPYCLIA [id number] [address] [place] CO2 (Bld) [Partial pressure] 49 mm Hg High 36-46 [facility] Comment on above: Order Comment: Speci men Type: ARTERIAL BLOOD SPECIMENOrdering Facility: [facility] Address: [address] [place], [place] [address] Performed By: #### A LLBG ####[facility] THERAPYCLIA [id number] [address] [place] CO2 adjusted to patient's actual temperature (Bld) [Partial pressure] Normal [facility] Comment on above: Order Comment: Speci men Type: ARTERIAL BLOOD SPECIMENOrdering Facility: [facility] Address: [address] [place] [address] Performed By: #### A LLBG ####[facility] THERAPYCLIA [id number] [place] [address] [place] FIO2 30.0 % Normal [facility] Comment on above: Order Comment: Speci men Type: ARTERIAL BLOOD SPECIMENOrdering Facility: [facility] Address: [address] [place] [address] Performed By: #### A LLBG ####[facility] THERAPYCLIA [id number] [address] [place] Glucose [Mass/Vol] 104 mg/dL Normal 60-105 [facility] Comment on above: Order Comment: Speci men Type: ARTERIAL BLOOD SPECIMENOrdering Facility: [facility] Address: [address] [place] [address] Performed By: #### A LLBG ####[facility] THERAPYCLIA [id number] [address] [place] HCO3 (Bld) [Moles/Vol] 21 mmol/L Low 22-26 [facility] Comment on above: Order Comment: Speci men Type: ARTERIAL BLOOD SPECIMENOrdering Facility: [facility] Address: [address] [place] [address] Performed By: #### A LLBG ####[facility] THERAPYCLIA [id number] [address] [place] Hemoglobin (Bld) [Mass/Vol] 9.2 g/dL Low 13.0-17.0 [facility] Comment on above: Order Comment: Speci men Type: ARTERIAL BLOOD SPECIMENOrdering Facility: [facility] Address: [address] [place] [address] Performed By: #### A LLBG ####[facility] THERAPYCLIA [id number] [address] [place] INHALED TIDAL VOLUME (ML) 500 Normal [facility] Comment on above: Order Comment: Speci men Type: ARTERIAL BLOOD SPECIMENOrdering Facility: [facility] Address: [address] [address] Performed By: #### A LLBG ####[facility] THERAPYCLIA [id number] [address] [place] INSPIRATORY PRESSURE SET (CMH2O) 14 cmH2O [facility] Comment on above: Order Comment: Speci men Type: ARTERIAL BLOOD SPECIMENOrdering Facility: [facility] Address: [address] [place] [address] Performed By: #### A LLBG ####[facility] THERAPYCLIA [id number] [address] [place] Lactate [Moles/Vol] 1.3 mmol/L Normal 0.5-2.2 [facility] Comment on above: Order Comment: Speci men Type: ARTERIAL BLOOD SPECIMENOrdering Facility: [facility] Address: [address] [place] [address] Performed By: #### A LLBG ####[facility] THERAPYCLIA [id number] [address] [place] Methemoglobin (Bld) [Mass fraction] 0.3 % Normal 0.0-1.5 [facility] Comment on above: Order Comment: Speci men Type: ARTERIAL BLOOD SPECIMENOrdering Facility: [facility] Address: [address] [address] Performed By: #### A LLBG ####[facility] THERAPYCLIA [id number] [address] [place] O2 THERAPY Positive [facility] Comment on above: Order Comment: Speci men Type: ARTERIAL BLOOD SPECIMENOrdering Facility: [facility] Address: [address] [place] [address] Performed By: #### A LLBG ####[facility] THERAPYCLIA [id number] [address] [place] Oxygen (Bld) [Partial pressure] 102 mm Hg High 85-95 [facility] Comment on above: Order Comment: Speci men Type: ARTERIAL BLOOD SPECIMENOrdering Facility: [facility] Address: [address] [place] [address] Performed By: #### A LLBG ####[facility] THERAPYCLIA [id number] [address] [place] Oxygen adjusted to patient's actual temperature (Bld) [Partial pressure] Normal [facility] Comment on above: Order Comment: Speci men Type: ARTERIAL BLOOD SPECIMENOrdering Facility: [facility] Address: [address] [place] [address] Performed By: #### A LLBG ####[facility] THERAPYCLIA [id number] [address] [place] Oxyhemoglobin (BldA) [Mass fraction] 96 % Normal 95-98 [facility] Comment on above: Order Comment: Speci men Type: ARTERIAL BLOOD SPECIMENOrdering Facility: [facility] Address: [address] [place] [address] Performed By: #### A LLBG ####[facility] THERAPYCLIA [id number] [address] [place] PEEP/CPAP 8 cmH2O Normal [facility] Comment on above: Order Comment: Speci men Type: ARTERIAL BLOOD SPECIMENOrdering Facility: [facility] Address: [address] [address] Performed By: #### A LLBG ####[facility] THERAPYCLIA [id number] [address] [place] pH (Bld) 7.26 [pH] Low 7.35-7.45 [facility] Comment on above: Order Comment: Speci men Type: ARTERIAL BLOOD SPECIMENOrdering Facility: [facility] Address: [address] [place], [place] [address] Performed By: #### A LLBG ####[facility] THERAPYCLIA [id number] [address] pH adjusted to patient's actual temperature (Bld) Normal [facility] Comment on above: Order Comment: Speci men Type: ARTERIAL BLOOD SPECIMENOrdering Facility: [facility] Address: [address] [place] [address] Performed By: #### A LLBG ####[facility] THERAPYCLIA [id number] [address] [place] Potassium [Moles/Vol] 4.6 mmol/L Normal 2.5-6.0 [facility] Comment on above: Order Comment: Speci men Type: ARTERIAL BLOOD SPECIMENOrdering Facility: [facility] Address: [address] [place] [address] Performed By: #### A LLBG ####[facility] THERAPYCLIA [id number] [address] SET VENTILATOR RESPIRATORY RATE (BPM) 20 BPM Normal [facility] Comment on above: Order Comment: Speci men Type: ARTERIAL BLOOD SPECIMENOrdering Facility: [facility] Address: [address] [place] [address] Performed By: #### A LLBG ####[facility] THERAPYCLIA [id number] [address] [place] Sodium [Moles/Vol] 137 mmol/L Normal 136-144 [facility] Comment on above: Order Comment: Speci men Type: ARTERIAL BLOOD SPECIMENOrdering Facility: [facility] Address: [address] [place] [address] Performed By: #### A LLBG ####[facility] THERAPYCLIA [id number] [address] [place] Basic metabolic 2000 panelon 04-27-2022 Anion gap [Moles/Vol] 12 mmol/L Normal 5-16 [facility] Comment on above: Order Comment: Speci men Type: BLOOD SPECIMENOrdering Facility: [facility] Address: [address] [place] [address] Performed By: #### 2 4321-2 ####[facility] LABORATORYCLIA [id number] [place] [address] [place] Calcium [Mass/Vol] 8.9 mg/dL Normal 8.5-10.5 [facility] Comment on above: Order Comment: Speci men Type: BLOOD SPECIMENOrdering Facility: [facility] Address: [address] [place] [address] Performed By: #### 2 4321-2 ####[facility] LABORATORYCLIA [id number] [place] [address] [place] Chloride [Moles/Vol] 106 mmol/L Normal 98-107 [facility] Comment on above: Order Comment: Speci men Type: BLOOD SPECIMENOrdering Facility: [facility] Address: [address] [place] [address] Performed By: #### 2 4321-2 ####[facility] LABORATORYCLIA [id number] [place] [address] [place] CO2 [Moles/Vol] 24 mmol/L Normal 21-32 [facility] Comment on above: Order Comment: Speci men Type: BLOOD SPECIMENOrdering Facility: [facility] Address: [address] [place] [address] Performed By: #### 2 4321-2 ####[facility] LABORATORYCLIA [id number] [place] [address] [place] Creatinine [Mass/Vol] 5.21 mg/dL High 0.50-1.40 [facility] Comment on above: Order Comment: Speci men Type: BLOOD SPECIMENOrdering Facility: [facility] Address: [address] [place] [address] Result Comment: Macrina ents receiving either N-Acetylcysteine (NAC) or Metamizole prior to venipuncture, may have falsely depressed results. Performed By: #### 2 4321-2 ####[facility] LABORATORYCLIA [id number] [place] [address] [place] ESTIMATED GLOMERULAR FILTRATION RATE 12 mL/min/1.73m??? Low >=60 [facility] Comment on above: Order Comment: Kelsi huff Type: BLOOD SPECIMENOrdering Facility: [facility] Address: [address] [place] [address] Result Comment: Caryl mated Glomerular Filtration Rate [...] actual GFR. Performed By: #### 2 4321-2 ####[facility] LABORATORYCLIA [id number] [place] [address] [place] Glucose [Mass/Vol] 98 mg/dL Normal 70-100 [facility] Comment on above: Order Comment: Kelsi huff Type: BLOOD SPECIMENOrdering Facility: [facility] Address: [address] [place] [address] Result Comment: The [place] [employer] (ADA) provides guidance for cutoff [...] Standards of Medical Care in Diabetes 2016, [place] [employer]. Diabetes Care. 2016.39(Suppl 1).Results may be falsely elevated after the administration of Sulfapyridine.Results may be falsely depressed after the administration of Sulfasalazine. Performed By: #### 2 4321-2 ####[facility] LABORATORYCLIA [id number] [place] [id number] [place] Potassium [Moles/Vol] 4.9 mmol/L Normal 3.5-5.1 [facility] Comment on above: Order Comment: Speci men Type: BLOOD SPECIMENOrdering Facility: [facility] Address: [address] [place] [address] Result Comment: Slig ht Hemolysis, Result may be affected. Performed By: #### 2 4321-2 ####[facility] LABORATORYCLIA [id number] [place] [address] [place] Sodium [Moles/Vol] 142 mmol/L Normal 136-145 [facility] Comment on above: Order Comment: Speci men Type: BLOOD SPECIMENOrdering Facility: [facility] Address: [address] [place] [address] Performed By: #### 2 4321-2 ####[facility] LABORATORYCLIA [id number] [place] [address] [place] Urea nitrogen [Mass/Vol] 66 mg/dL High 7-26 [facility] Comment on above: Order Comment: Speci men Type: BLOOD SPECIMENOrdering Facility: [facility] Address: [address] [place] [address] Performed By: #### 2 4321-2 ####[facility] LABORATORYCLIA [id number] [place] [address] [place] CBC panel Auto (Bld)on 04-27 Erythrocyte distribution width (RBC) [Ratio] 16.6 % High 11.5-15.0 [facility] Comment on above: Order Comment: Speci men Type: BLOOD SPECIMENOrdering Facility: [facility] Address: [address] [place] [address] Performed By: #### 5 8410-2 ####[facility] LABORATORYCLIA [id number] [address] [place] Hematocrit (Bld) [Volume fraction] 25.2 % Low 39.0-51.0 [facility] Comment on above: Order Comment: Speci men Type: BLOOD SPECIMENOrdering Facility: [facility] Address: [address] [place] [address] Performed By: #### 5 8410-2 ####[facility] LABORATORYCLIA [id number] [address] [facility] Hemoglobin (Bld) [Mass/Vol] 8.2 g/dL Low 13.0-17.0 [facility] Comment on above: Order Comment: Speci men Type: BLOOD SPECIMENOrdering Facility: [facility] Address: [address] [place] [address] Performed By: #### 5 8410-2 ####[facility] LABORATORYCLIA [id number] [address] MCH (RBC) [Entitic mass] 31.1 pg Normal 26.0-34.0 [facility] Comment on above: Order Comment: Speci men Type: BLOOD SPECIMENOrdering Facility: [facility] Address: [address] [place] [address] Performed By: #### 5 8410-2 ####[facility] LABORATORYCLIA [id number] [address] [place] MCHC (RBC) [Mass/Vol] 32.5 g/dL Normal 30.5-36.0 [facility] Comment on above: Order Comment: Speci men Type: BLOOD SPECIMENOrdering Facility: [facility] Address: [address] [place] [address] Performed By: #### 5 8410-2 ####[facility] LABORATORYCLIA [id number] [address] [place] MCV (RBC) [Entitic vol] 95.5 fL Normal 80.0-100.0 [facility] Comment on above: Order Comment: Speci men Type: BLOOD SPECIMENOrdering Facility: [facility] Address: [address] [place] [address] Performed By: #### 5 8410-2 ####[facility] LABORATORYCLIA [id number] [place] [address] [place] Nucleated RBC (Bld) [#/Vol] 10*3/uL Normal <0.01 [facility] Comment on above: Order Comment: Speci men Type: BLOOD SPECIMENOrdering Facility: [facility] Address: [address] [place] [address] Performed By: #### 5 8410-2 ####[facility] LABORATORYCLIA [id number] [place] [address] [place] Platelet mean volume (Bld) [Entitic vol] 10.0 fL Normal 9.0-12.7 [facility] Comment on above: Order Comment: Speci men Type: BLOOD SPECIMENOrdering Facility: [facility] Address: [address] [place], [place] [address] Performed By: #### 5 8410-2 ####[facility] LABORATORYCLIA [id number] [address] [place] Platelets (Bld) [#/Vol] 184 10*3/uL Normal 150-400 [facility] Comment on above: Order Comment: Speci men Type: BLOOD SPECIMENOrdering Facility: [facility] Address: [address] [place] [address] Performed By: #### 5 8410-2 ####[facility] LABORATORYCLIA [id number] [place] [address] [place] RBC (Bld) [#/Vol] 2.64 10*6/uL Low 4.20-6.00 [facility] Comment on above: Order Comment: Speci men Type: BLOOD SPECIMENOrdering Facility: [facility] Address: [address] [place], [place] [address] Performed By: #### 5 8410-2 ####[facility] LABORATORYCLIA [id number] [place] [address] [place] WBC (Bld) [#/Vol] 22.82 10*3/uL High 3.70-11.00 [facility] Comment on above: Order Comment: Speci men Type: BLOOD SPECIMENOrdering Facility: [facility] Address: [address] [place] [address] Performed By: #### 5 8410-2 ####[facility] LABORATORYCLIA [id number] [address] [place] CONSULT PROGon 04-27-2022 CONSULT PROG Normal [facility] CTA CHEST (NONGATED) W IVCON on 04-27-2022 CTA CHEST (NONGATED) W IVCON Normal [facility] NT-proBNP SerPl-mCncon 04-27 Natriuretic peptide.B prohormone N-Terminal [Mass/Vol] >17410 High <125 [facility] Comment on above: Order Comment: Speci men Type: BLOOD SPECIMENOrdering Facility: [facility] Address: [address] [place] [address] Result Comment: NT-p roBNP results of less than 300 pg/mL likely rules out acute congestive heart failure with 99% predictive value.NOTE: These cutoff points are suggested for ACUTE CHF DIAGNOSIS onlyLess than 50 years Greater than 450 pg/mL50 - 75 years Greater than 900 pg/mLGreater than 75 years Greater than 1800 pg/mLNOTE NEW NORMAL RANGE Performed By: #### 3 3762-6 ####[facility] LABORATORYCLIA [id number] [place] [address] [place] NUTRITIONon 04-27-2022 NUTRITION Normal [facility] XR CHEST 1V FRONTALon 2021 XR CHEST 1V FRONTAL Normal [facility] XR CHEST 1V FRONTAL Normal [facility] ARTERIAL BLOOD GASESon 04-26 BASE DEFICIT, ARTERIAL -5 mmol/L Low -2-0 [facility] Comment on above: Order Comment: Speci men Type: ARTERIAL BLOOD SPECIMENOrdering Facility: [facility] Address: [address] [place] [address] [place] [address] Performed By: #### A LLBG ####[facility] THERAPYCLIA [id number] [address] [place] Body temperature 98.96 [degF] Normal [facility] Comment on above: Order Comment: Speci men Type: ARTERIAL BLOOD SPECIMENOrdering Facility: [facility] Address: [address] [address] Performed By: #### A LLBG ####[facility] THERAPYCLIA [id number] [address] [place] Calcium.ionized (Bld) [Mass/Vol] 1.16 mmol/L Normal 1.08-1.30 [facility] Comment on above: Order Comment: Speci men Type: ARTERIAL BLOOD SPECIMENOrdering Facility: [facility] Address: [address] [place] [address] Performed By: #### A LLBG ####[facility] THERAPYCLIA [id number] [address] Carboxyhemoglobin (BldA) [Mass fraction] 0.9 % Normal 0.0-2.0 [facility] Comment on above: Order Comment: Speci men Type: ARTERIAL BLOOD SPECIMENOrdering Facility: [facility] Address: [address] [place] [address] Result Comment: Carb oxyhemoglobin Reference Range for Smokers: 2.0-8.0% Performed By: #### A LLBG ####[facility] THERAPYCLIA [id number] [address] [place] CO2 (Bld) [Partial pressure] 47 mm Hg High 36-46 [facility] Comment on above: Order Comment: Speci men Type: ARTERIAL BLOOD SPECIMENOrdering Facility: [facility] Address: [address] [place] [address] Performed By: #### A LLBG ####[facility] THERAPYCLIA [id number] [address] [place] CO2 adjusted to patient's actual temperature (Bld) [Partial pressure] Normal [facility] Comment on above: Order Comment: Speci men Type: ARTERIAL BLOOD SPECIMENOrdering Facility: [facility] Address: [address] [place] [address] Performed By: #### A LLBG ####[facility] THERAPYCLIA [id number] [address] FIO2 35.0 % Normal [facility] Comment on above: Order Comment: Speci men Type: ARTERIAL BLOOD SPECIMENOrdering Facility: [facility] Address: [facility] [place] [address] Performed By: #### A LLBG ####[facility] THERAPYCLIA [id number] [address] [place] Glucose [Mass/Vol] 131 mg/dL High 60-105 [facility] Comment on above: Order Comment: Speci men Type: ARTERIAL BLOOD SPECIMENOrdering Facility: [facility] Address: [address] [place] [address] Performed By: #### A LLBG ####[facility] THERAPYCLIA [id number] [address] [place] HCO3 (Bld) [Moles/Vol] 22 mmol/L Normal 22-26 [facility] Comment on above: Order Comment: Speci men Type: ARTERIAL BLOOD SPECIMENOrdering Facility: [facility] Address: [address] [place] [address] Performed By: #### A LLBG ####[facility] THERAPYCLIA [id number] [address] [place] Hemoglobin (Bld) [Mass/Vol] 9.2 g/dL Low 13.0-17.0 [facility] Comment on above: Order Comment: Speci men Type: ARTERIAL BLOOD SPECIMENOrdering Facility: [facility] Address: [address] Performed By: #### A LLBG ####[facility] THERAPYCLIA [id number] [address] [place] INHALED TIDAL VOLUME (ML) 500 Normal [facility] Comment on above: Order Comment: Speci men Type: ARTERIAL BLOOD SPECIMENOrdering Facility: [facility] Address: [address] [place] [address] Performed By: #### A LLBG ####[facility] THERAPYCLIA [id number] [address] [place] INSPIRATORY PRESSURE SET (CMH2O) 14 cmH2O Normal [facility] Comment on above: Order Comment: Speci men Type: ARTERIAL BLOOD SPECIMENOrdering Facility: [facility] Address: [address] [address] Performed By: #### A LLBG ####[facility] THERAPYCLIA [id number] [address] [place] Lactate [Moles/Vol] 1.2 mmol/L Normal 0.5-2.2 [facility] Comment on above: Order Comment: Speci men Type: ARTERIAL BLOOD SPECIMENOrdering Facility: [facility] Address: [address] [place] [address] Performed By: #### A LLBG ####[facility] THERAPYCLIA [id number] [address] [place] Methemoglobin (Bld) [Mass fraction] 0.3 % Normal 0.0-1.5 [facility] Comment on above: Order Comment: Speci men Type: ARTERIAL BLOOD SPECIMENOrdering Facility: [facility] Address: [address] [place] [address] Performed By: #### A LLBG ####[facility] THERAPYCLIA [id number] [address] [place] O2 THERAPY Positive Normal [facility] Comment on above: Order Comment: Speci men Type: ARTERIAL BLOOD SPECIMENOrdering Facility: [facility] Address: [address] Performed By: #### A LLBG ####[facility] THERAPYCLIA [id number] [address] [place] Oxygen (Bld) [Partial pressure] 140 mm Hg High 85-95 [facility] Comment on above: Order Comment: Speci men Type: ARTERIAL BLOOD SPECIMENOrdering Facility: [facility] Address: [address] [address] Performed By: #### A LLBG ####[facility] THERAPYCLIA [id number] [address] [place] Oxygen adjusted to patient's actual temperature (Bld) [Partial pressure] Normal [facility] Comment on above: Order Comment: Speci men Type: ARTERIAL BLOOD SPECIMENOrdering Facility: [facility] Address: [address] [place] [address] Performed By: #### A LLBG ####[facility] THERAPYCLIA [id number] [address] [place] Oxyhemoglobin (BldA) [Mass fraction] 97 % Normal 95-98 [facility] Comment on above: Order Comment: Speci men Type: ARTERIAL BLOOD SPECIMENOrdering Facility: [facility] Address: [address] [place] [address] Performed By: #### A LLBG ####[facility] THERAPYCLIA [id number] [address] [place] PEEP/CPAP 8 cmH2O Normal [facility] Comment on above: Order Comment: Speci men Type: ARTERIAL BLOOD SPECIMENOrdering Facility: [facility] Address: [address] [place] [address] Performed By: #### A LLBG ####[facility] THERAPYCLIA [id number] [address] [place] pH (Bld) 7.28 [pH] Low 7.35-7.45 [facility] Comment on above: Order Comment: Speci men Type: ARTERIAL BLOOD SPECIMENOrdering Facility: [facility] Address: [address] [place] [address] Performed By: #### A LLBG ####[facility] THERAPYCLIA [id number] [address] [place] pH adjusted to patient's actual temperature (Bld) Normal [facility] Comment on above: Order Comment: Speci men Type: ARTERIAL BLOOD SPECIMENOrdering Facility: [facility] Address: [address] [place] [address] Performed By: #### A LLBG ####[facility] THERAPYCLIA [id number] [address] [place] Potassium [Moles/Vol] 4.6 mmol/L Normal 2.5-6.0 [facility] Comment on above: Order Comment: Speci men Type: ARTERIAL BLOOD SPECIMENOrdering Facility: [facility] Address: [address] [place] [address] Performed By: #### A LLBG ####[facility] THERAPYCLIA [id number] [address] OF [facility] SET VENTILATOR RESPIRATORY RATE (BPM) 20 BPM Normal [facility] Comment on above: Order Comment: Speci men Type: ARTERIAL BLOOD SPECIMENOrdering Facility: [facility] Address: [address] [place] [address] Performed By: #### A LLBG ####[facility] THERAPYCLIA [id number] [address] [place] Sodium [Moles/Vol] 136 mmol/L Normal 136-144 [facility] Comment on above: Order Comment: Speci men Type: ARTERIAL BLOOD SPECIMENOrdering Facility: [facility] Address: [address] [place] [address] Performed By: #### A LLBG ####[facility] THERAPYCLIA [id number] [address] [place] BASE DEFICIT, ARTERIAL -6 mmol/L Low -2-0 [facility] Comment on above: Order Comment: Speci men Type: ARTERIAL BLOOD SPECIMENOrdering Facility: [facility] Address: [address] [place] [address] Performed By: #### A LLBG ####[facility] THERAPYCLIA [id number] [address] [place] Body temperature 98.6 [degF] Normal [facility] Comment on above: Order Comment: Speci men Type: ARTERIAL BLOOD SPECIMENOrdering Facility: [facility] Address: [address] [place] [address] Performed By: #### A LLBG ####[facility] THERAPYCLIA [id number] [place] [address] [place] Calcium.ionized (Bld) [Mass/Vol] 1.19 mmol/L Normal 1.08-1.30 [facility] Comment on above: Order Comment: Speci men Type: ARTERIAL BLOOD SPECIMENOrdering Facility: [facility] Address: [address] [place] [address] Performed By: #### A LLBG ####[facility] THERAPYCLIA [id number] [place] [address] [place] Carboxyhemoglobin (BldA) [Mass fraction] 0.7 % Normal 0.0-2.0 [facility] Comment on above: Order Comment: Speci men Type: ARTERIAL BLOOD SPECIMENOrdering Facility: [facility] Address: [address] [place] [address] Result Comment: Carb oxyhemoglobin Reference Range for Smokers: 2.0-8.0% Performed By: #### A LLBG ####[facility] THERAPYCLIA [id number] [place] [address] [place] CO2 (Bld) [Partial pressure] 56 mm Hg High 36-46 [facility] Comment on above: Order Comment: Speci men Type: ARTERIAL BLOOD SPECIMENOrdering Facility: [facility] Address: [address] [place] [address] Performed By: #### A LLBG ####[facility] THERAPYCLIA [id number] [place] [address] [place] Glucose [Mass/Vol] 136 mg/dL High 60-105 [facility] Comment on above: Order Comment: Speci men Type: ARTERIAL BLOOD SPECIMENOrdering Facility: [facility] Address: [address] [place] [address] Performed By: #### A LLBG ####[facility] THERAPYCLIA [id number] [place] [address] [place] HCO3 (Bld) [Moles/Vol] 22 mmol/L Normal 22-26 [facility] Comment on above: Order Comment: Speci men Type: ARTERIAL BLOOD SPECIMENOrdering Facility: [facility] Address: [address] [place] [address] Performed By: #### A LLBG ####[facility] THERAPYCLIA [id number] [address] [place] Hemoglobin (Bld) [Mass/Vol] 9.2 g/dL Low 13.0-17.0 [facility] Comment on above: Order Comment: Speci men Type: ARTERIAL BLOOD SPECIMENOrdering Facility: [facility] Address: [address] [place] [address] Performed By: #### A LLBG ####[facility] THERAPYCLIA [id number] [address] [place] Lactate [Moles/Vol] 1.0 mmol/L Normal 0.5-2.2 [facility] Comment on above: Order Comment: Speci men Type: ARTERIAL BLOOD SPECIMENOrdering Facility: [facility] Address: [address] [place] [address] Performed By: #### A LLBG ####[facility] THERAPYCLIA [id number] [address] [place] LITERS 2 Liters/min Normal [facility] Comment on above: Order Comment: Speci men Type: ARTERIAL BLOOD SPECIMENOrdering Facility: [facility] Address: [address] [place] [address] Performed By: #### A LLBG ####[facility] THERAPYCLIA [id number] [address] [place] Methemoglobin (Bld) [Mass fraction] 0.1 % Normal 0.0-1.5 [facility] Comment on above: Order Comment: Speci men Type: ARTERIAL BLOOD SPECIMENOrdering Facility: [facility] Address: [address] [place] [address] Performed By: #### A LLBG ####[facility] THERAPYCLIA [id number] [address] [place] O2 THERAPY NC = Nasal Cannula Normal [facility] Comment on above: Order Comment: Speci men Type: ARTERIAL BLOOD SPECIMENOrdering Facility: [facility] Address: [address] [place] [address] Performed By: #### A LLBG ####[facility] THERAPYCLIA [id number] [place] [address] [place] Oxygen (Bld) [Partial pressure] 114 mm Hg High 85-95 [facility] Comment on above: Order Comment: Speci men Type: ARTERIAL BLOOD SPECIMENOrdering Facility: [facility] Address: [address] [place] [address] Performed By: #### A LLBG ####[facility] THERAPYCLIA [id number] [place] [address] [facility] [place] Oxyhemoglobin (BldA) [Mass fraction] 97 % Normal 95-98 [facility] Comment on above: Order Comment: Speci men Type: ARTERIAL BLOOD SPECIMENOrdering Facility: [facility] Address: [address] [place] [address] Performed By: #### A LLBG ####[facility] THERAPYCLIA [id number] [place] [address] [place] pH (Bld) 7.22 [pH] Low 7.35-7.45 [facility] Comment on above: Order Comment: Speci men Type: ARTERIAL BLOOD SPECIMENOrdering Facility: [facility] Address: [address] [place] [address] Performed By: #### A LLBG ####[facility] THERAPYCLIA [id number] [place] [address] [place] Potassium [Moles/Vol] 4.6 mmol/L Normal 2.5-6.0 [facility] Comment on above: Order Comment: Speci men Type: ARTERIAL BLOOD SPECIMENOrdering Facility: [facility] Address: [address] [place] [address] Performed By: #### A LLBG ####[facility] THERAPYCLIA [id number] [place] [address] [place] Sodium [Moles/Vol] 135 mmol/L Low 136-144 [facility] Comment on above: Order Comment: Speci men Type: ARTERIAL BLOOD SPECIMENOrdering Facility: [facility] Address: [facility] [address] Performed By: #### A LLBG ####[facility] THERAPYCLIA [id number] [address] [id number] [place] Basic metabolic 2000 panelon 04-26-2022 Anion gap [Moles/Vol] 9 mmol/L Normal 5-16 [facility] Comment on above: Order Comment: Speci men Type: BLOOD SPECIMENOrdering Facility: [facility] Address: [facility] [place] [address] Performed By: #### 2 4321-2, ####[facility] LABORATORYCLIA [id number] [place] [address] [place] Calcium [Mass/Vol] 8.5 mg/dL Normal 8.5-10.5 [facility] Comment on above: Order Comment: Speci men Type: BLOOD SPECIMENOrdering Facility: [facility] Address: [facility] [place] [address] Performed By: #### 2 4321-2, ####[facility] LABORATORYCLIA [id number] [place] [address] [place] Chloride [Moles/Vol] 107 mmol/L Normal 98-107 [facility] Comment on above: Order Comment: Speci men Type: BLOOD SPECIMENOrdering Facility: [facility] Address: [address] [place] Performed By: #### 2 4321-2, ####[facility] LABORATORYCLIA [id number] [place] [id number] [place] CO2 [Moles/Vol] 26 mmol/L Normal 21-32 [facility] Comment on above: Order Comment: Speci men Type: BLOOD SPECIMENOrdering Facility: [facility] Address: [address] [place] Performed By: #### 2 4321-2, ####[facility] LABORATORYCLIA [id number] [place] [id number] [place] Creatinine [Mass/Vol] 3.41 mg/dL High 0.50-1.40 [facility] Comment on above: Order Comment: Kelsi huff Type: BLOOD SPECIMENOrdering Facility: [facility] Address: [address] [address] Result Comment: Macrina ents receiving either N-Acetylcysteine (NAC) or Metamizole prior to venipuncture, may have falsely depressed results. Performed By: #### 2 432-2, ####[facility] LABORATORYCLIA [id number] [place] [address] [facility] ESTIMATED GLOMERULAR FILTRATION RATE 19 mL/min/1.73m??? Low >=60 [facility] Comment on above: Order Comment: Kelsi huff Type: BLOOD SPECIMENOrdering Facility: [facility] Address: [address] [address] Result Comment: Caryl mated Glomerular Filtration Rate [...] actual GFR. Performed By: #### 2 4321-2, ####[facility] LABORATORYCLIA [id number] [place] [id number] [place] Glucose [Mass/Vol] 122 mg/dL High 70-100 [facility] Comment on above: Order Comment: Kelsi huff Type: BLOOD SPECIMENOrdering Facility: [facility] Address: [address] [address] Result Comment: The [place] [employer] Association (ADA) provides guidance for cutoff [...] Standards of Medical Care in Diabetes 2016, [place] [employer]. Diabetes Care. 2016.39(Suppl 1).Results may be falsely elevated after the administration of Sulfapyridine.Results may be falsely depressed after the administration of Sulfasalazine. Performed By: #### 2 43208-28, ####[facility] LABORATORYCLIA [id number] [place] [address] [place] Potassium [Moles/Vol] 4.6 mmol/L Normal 3.5-5.1 [facility] Comment on above: Order Comment: Kelsi huff Type: BLOOD SPECIMENOrdering Facility: [facility] Address: [address] [place] [address] Performed By: #### 2 ####[facility] LABORATORYCLIA [id number] [place] [address] [place] [facility] Sodium [Moles/Vol] 142 mmol/L Normal 136-145 [facility] Comment on above: Order Comment: Kelsi huff Type: BLOOD SPECIMENOrdering Facility: [facility] Address: [address] [place] [address] Performed By: #### 2 ####[facility] LABORATORYCLIA [id number] [place] [address] [place] Urea nitrogen [Mass/Vol] 45 mg/dL High 7-26 [facility] Comment on above: Order Comment: Kelsi huff Type: BLOOD SPECIMENOrdering Facility: [facility] Address: [address] Performed By: #### 2 432 ####[facility] LABORATORYCLIA [id number] [address] [place] CASE MANAGEMon 04-26-2022 CASE MANAGEM Normal [facility] CBC W Auto Differential pane l (Bld)on 04-26-2022 Band form neutrophils/100 WBC (Bld) 11.0 % Normal [facility] Comment on above: Order Comment: Speci men Type: BLOOD SPECIMENOrdering Facility: [facility] Address: [address] [place] [address] Performed By: #### 5 7021-8 ####[facility] LABORATORYCLIA [id number] [place] [address] [place] Basophils/100 WBC (Bld) 0.0 % [facility] Comment on above: Order Comment: Speci men Type: BLOOD SPECIMENOrdering Facility: [facility] Address: [address] [place] [address] Performed By: #### 5 7021-8 ####[facility] LABORATORYCLIA [id number] [address] [place] Differential cell count method Nom (Bld) Manual Normal [facility] Comment on above: Order Comment: Speci men Type: BLOOD SPECIMENOrdering Facility: [facility] Address: [address] [place] [address] Performed By: #### 5 7021-8 ####[facility] LABORATORYCLIA [id number] [place] [address] [place] Eosinophils (Bld) [#/Vol] 0.20 10*3/uL Normal <0.46 [facility] Comment on above: Order Comment: Speci men Type: BLOOD SPECIMENOrdering Facility: [facility] Address: [address] [place] [address] Performed By: #### 5 7021-8 ####[facility] LABORATORYCLIA [id number] [address] Eosinophils/100 WBC (Bld) 1.0 % [facility] Comment on above: Order Comment: Speci men Type: BLOOD SPECIMENOrdering Facility: [facility] Address: [address] Performed By: #### 5 7021-8 ####[facility] LABORATORYCLIA [id number] [place] [address] [place] Erythrocyte distribution width (RBC) [Ratio] 15.9 % High 11.5-15.0 [facility] Comment on above: Order Comment: Speci men Type: BLOOD SPECIMENOrdering Facility: [facility] Address: [address] [place] [address] Performed By: #### 5 7021-8 ####[facility] LABORATORYCLIA [id number] [place] [address] [place] Hematocrit (Bld) [Volume fraction] 21.7 % Low 39.0-51.0 [facility] Comment on above: Order Comment: Speci men Type: BLOOD SPECIMENOrdering Facility: [facility] Address: [address] [place] [address] Performed By: #### 5 7021-8 ####[facility] LABORATORYCLIA [id number] [place] [address] [place] Hemoglobin (Bld) [Mass/Vol] 7.1 g/dL Low 13.0-17.0 [facility] Comment on above: Order Comment: Speci men Type: BLOOD SPECIMENOrdering Facility: [facility] Address: [address] [place] [address] Performed By: #### 5 7021-8 ####[facility] LABORATORYCLIA [id number] [place] [address] [place] Lymphocytes (Bld) [#/Vol] 1.56 10*3/uL Normal 1.00-4.00 [facility] Comment on above: Order Comment: Speci men Type: BLOOD SPECIMENOrdering Facility: [facility] Address: [address] [place] [address] Performed By: #### 5 7021-8 ####[facility] LABORATORYCLIA [id number] [place] [address] [place] Lymphocytes/100 WBC (Bld) 8.0 % Normal [facility] Comment on above: Order Comment: Speci men Type: BLOOD SPECIMENOrdering Facility: [facility] Address: [address] [place] [address] Performed By: #### 5 7021-8 ####[facility] LABORATORYCLIA [id number] [place] [address] [place] MCH (RBC) [Entitic mass] 32.0 pg Normal 26.0-34.0 [facility] Comment on above: Order Comment: Speci men Type: BLOOD SPECIMENOrdering Facility: [facility] Address: [address] [place] [address] Performed By: #### 5 7021-8 ####[facility] LABORATORYCLIA [id number] [address] [place] MCHC (RBC) [Mass/Vol] 32.7 g/dL Normal 30.5-36.0 [facility] Comment on above: Order Comment: Speci men Type: BLOOD SPECIMENOrdering Facility: [facility] Address: [address] [place] [address] Performed By: #### 5 7021-8 ####[facility] LABORATORYCLIA [id number] [address] [place] MCV (RBC) [Entitic vol] 97.7 fL Normal 80.0-100.0 [facility] Comment on above: Order Comment: Speci men Type: BLOOD SPECIMENOrdering Facility: [facility] Address: [address] [place], [place] [address] Performed By: #### 5 7021-8 ####[facility] LABORATORYCLIA [id number] [place] [address] [place] Neutrophils (Bld) [#/Vol] 16.80 10*3/uL High 1.45-7.50 [facility] Comment on above: Order Comment: Speci men Type: BLOOD SPECIMENOrdering Facility: [facility] Address: [address] [place], [place] [address] Performed By: #### 5 7021-8 ####[facility] LABORATORYCLIA [id number] [address] [place] Neutrophils/100 WBC (Bld) 75.0 % Normal [facility] Comment on above: Order Comment: Speci men Type: BLOOD SPECIMENOrdering Facility: [facility] Address: [address] [place] [address] Performed By: #### 5 7021-8 ####[facility] LABORATORYCLIA [id number] [place] [address] [place] Nucleated RBC/100 WBC (Bld) [Ratio] 0.0 /100 WBC Normal [facility] Comment on above: Order Comment: Speci men Type: BLOOD SPECIMENOrdering Facility: [facility] Address: [address] [place] [address] Performed By: #### 5 7021-8 ####[facility] LABORATORYCLIA [id number] [address] [place] PLATELET ESTIMATE Decreased Normal [facility] Comment on above: Order Comment: Speci men Type: BLOOD SPECIMENOrdering Facility: [facility] Address: [address] [place] [address] Performed By: #### 5 7021-8 ####[facility] LABORATORYCLIA [id number] [place] [address] [place] Platelet mean volume (Bld) [Entitic vol] 9.9 fL Normal 9.0-12.7 [facility] Comment on above: Order Comment: Speci men Type: BLOOD SPECIMENOrdering Facility: [facility] Address: [address] [place] [address] Performed By: #### 5 7021-8 ####[facility] LABORATORYCLIA [id number] [address] [place] Platelets (Bld) [#/Vol] 130 10*3/uL Low 150-400 [facility] Comment on above: Order Comment: Speci men Type: BLOOD SPECIMENOrdering Facility: [facility] Address: [address] [place] [address] Performed By: #### 5 7021-8 ####[facility] LABORATORYCLIA [id number] [place] [address] [facility] RBC (Bld) [#/Vol] 2.22 10*6/uL Low 4.20-6.00 [facility] Comment on above: Order Comment: Speci men Type: BLOOD SPECIMENOrdering Facility: [facility] Address: [address] [place] [address] Performed By: #### 5 7021-8 ####[facility] LABORATORYCLIA [id number] [address] [place] Reviewed: unremarkable Normal [facility] Comment on above: Order Comment: Speci men Type: BLOOD SPECIMENOrdering Facility: [facility] Address: [address] [place] [address] Performed By: #### 5 7021-8 ####[facility] LABORATORYCLIA [id number] [address] [place] 0.00 k/uL Normal <0.11 [facility] Comment on above: Order Comment: Speci men Type: BLOOD SPECIMENOrdering Facility: [facility] Address: [address] [place] [address] Performed By: #### 5 7021-8 ####[facility] LABORATORYCLIA [id number] [address] [place] 0.98 k/uL High <0.87 [facility] Comment on above: Order Comment: Speci men Type: BLOOD SPECIMENOrdering Facility: [facility] Address: [address] [place] [address] Performed By: #### 5 7021-8 ####[facility] LABORATORYCLIA [id number] [address] [place] WAM - MONO% 5.0 % Normal [facility] Comment on above: Order Comment: Speci men Type: BLOOD SPECIMENOrdering Facility: [facility] Address: [address] [place] [address] Performed By: #### 5 7021-8 ####[facility] LABORATORYCLIA [id number] [address] [place] ABSOLUTE NRBC <0.01 Normal <0.01 [facility] Comment on above: Order Comment: Speci men Type: BLOOD SPECIMENOrdering Facility: [facility] Address: [address] [place], [place] [address] Performed By: #### 5 7021-8 ####[facility] LABORATORYCLIA [id number] [place] [address] [place] WBC (Bld) [#/Vol] 19.54 10*3/uL High 3.70-11.00 [facility] Comment on above: Order Comment: Speci men Type: BLOOD SPECIMENOrdering Facility: [facility] Address: [address] [place] [address] Performed By: #### 5 7021-8 ####[facility] LABORATORYCLIA [id number] [address] [place] CONSULT PROGon 04-26-2022 CONSULT PROG Normal [facility] Calcium.ionized [Moles/Vol]o n 04-26-2022 Calcium.ionized (Bld) [Mass/Vol] 1.13 mmol/L Low 1.16-1.32 [facility] Comment on above: Order Comment: Speci men Type: BLOOD SPECIMENOrdering Facility: [facility] Address: [address] [place], [place] [address] Performed By: #### 1 995-0 ####[facility] LABORATORYCLIA [id number] [place] [address] [place] Magnesium SerPl-mCncon 04-26 Magnesium [Mass/Vol] 2.6 mg/dL Normal 1.6-2.6 [facility] Comment on above: Order Comment: Speci men Type: BLOOD SPECIMENOrdering Facility: [facility] Address: [address] [place] [address] Performed By: #### 2 4321-2, 48449-8 ####[facility] LABORATORYCLIA [id number] [place] [address] [place] CASE MGT INIT ASSESon 2021 CASE MGT INIT ASSES Normal [facility] CONSULT PROGon 04-25-2022 CONSULT PROG Normal [facility] TROPONIN I HIGH SENSITIVITYo n 04-25-2022 Tropinin I.cardiac panel High sensitivity method 227.1 pg/mL Critically high 0.0-54.0 [facility] Comment on above: Order Comment: Kelsi huff Type: BLOOD SPECIMENOrdering Facility: [facility] Address: [address] [place] [address] Result Comment: This assay uses different antibodies than our current assay, and assays, even by the same boil off machine operator cloth may recognize different regions of the antibody and cannot be used interchangeably. Expect results of this assay to run higher than the previous assay. Previous Critical within 24 hours. Critical Result(s) verified at: 21:58:33 on 04/25/2022 by: Maki Nolasco Performed By: #### H STROP ####[facility] LABORATORYCLIA [id number] [address] [place] Tropinin I.cardiac panel High sensitivity method 272.2 pg/mL Critically high 0.0-54.0 [facility] Comment on above: Order Comment: Kelsi huff Type: BLOOD SPECIMENOrdering Facility: [facility] Address: [address] [place] [address] Result Comment: This assay uses different antibodies than our current assay, and assays, even by the same boil off machine operator cloth may recognize different regions of the antibody and cannot be used interchangeably. Expect results of this assay to run higher than the previous assay. Previous Critical within 24 hours. Critical Result(s) verified at: 16:50:47 on 04/25/2022 by: Maki Nolasco Performed By: #### H STROP ####[facility] LABORATORYCLIA [id number] [place] [id number] [place] ABO/RH(D) TYPINGon 2 ABO/RH(D) TYPE Negative Normal [facility] Comment on above: Performed By: #### B ILTO, IPB, URICB, TP #### [facility] (DEFAULT) [address] [place] [address] 86113 ALBUMINon 03-06-2022 Albumin [Mass/Vol] 4.1 g/dL Normal 3.5-5.0 [facility] Comment on above: Performed By: #### B ILTO, IPB, URICB, TP #### [facility] (DEFAULT) [address] [place] [address] 16253 Albumin [Mass/Vol] 4.1 g/dL 3.5 - 5.0 g/dL [facility] ALCOHOL (ETHANOL),BLOODOrder ed By: Aisha Meyer on 03-06-2022 Ethanol Ql (Bld) <10 <10 mg/dL [facility] Ethanol Ql (U) Not detected [facility] ALCOHOL (ETHANOL),BLOODon Alcohol, Serum <10 Normal <10 [facility] Comment on above: Performed By: #### B ILTO, IPB, URICB, TP #### [facility] (DEFAULT) [address] [place] [address] 04502 Ethanol [Mass/Vol] Not detected Normal [facility] Comment on above: Performed By: #### B ILTO, IPB, URICB, TP #### [facility] (DEFAULT) [address] [place] [address] 80196 ALP ALT Hayley 03-06-2022 ALP [Catalytic activity/Vol] 140 U/L High 32-126 [facility] Comment on above: Performed By: #### B ILTO, IPB, URICB, TP #### [facility] (DEFAULT) [address] [place] [address] 57880 ALT [Catalytic activity/Vol] 15 U/L Normal 10-52 [facility] Comment on above: Performed By: #### B ILTO, IPB, URICB, TP #### [facility] (DEFAULT) [address] [place] [address] 07759 AST [Catalytic activity/Vol] 20 U/L Normal 10-39 [facility] Comment on above: Performed By: #### B ILTO, IPB, URICB, TP #### [facility] (DEFAULT) [address] [place] [address] 25695 ALP [Catalytic activity/Vol] 140 U/L High 32 - 126 U/L [facility] ALT [Catalytic activity/Vol] 15 U/L 10 - 52 U/L [facility] AST [Catalytic activity/Vol] 20 U/L 10 - 39 U/L [facility] BILIRUBIN TOTALon 03-06-2022 Bilirubin [Mass/Vol] 0.6 mg/dL Normal <1.5 [facility] Comment on above: Performed By: #### B ILTO, IPB, URICB, TP #### [facility] (DEFAULT) [address] [place] [address] 19899 Bilirubin [Mass/Vol] 0.6 mg/dL <1.5 [facility] C-PEPTIDEon 03-06-2022 C-Peptide 6.1 ng/mL High 0.2-2.7 [facility] Comment on above: Performed By: #### B ILTO, IPB, URICB, TP #### [facility] (DEFAULT) [address] [place] [address] 56673 CALCIUMon 03-06-2022 Calcium [Mass/Vol] 9.6 mg/dL Normal 8.6-10.5 [facility] Comment on above: Performed By: #### B ILTO, IPB, URICB, TP #### [facility] (DEFAULT) [address] [place] [address] 17931 Calcium [Mass/Vol] 9.6 mg/dL 8.6 - 10. 5 mg/dL [facility] CBC AND ELECTRONIC DIFFon Basophils (Bld) [#/Vol] 10*3/uL Normal 0.00-0.09 [facility] Comment on above: Performed By: #### B ILTO, IPB, URICB, TP #### [facility] (DEFAULT) [address] [place] [address] 59799 Basophils/100 WBC (Bld) 0.3 % Normal [facility] Comment on above: Performed By: #### B ILTO, IPB, URICB, TP #### [facility] (DEFAULT) [address] [place] [address] 13187 DIFF STATUS Electronic Differential Normal [facility] Comment on above: Performed By: #### B ILTO, IPB, URICB, TP #### [facility] (DEFAULT) [address] [place] [address] 82994 Eosinophils (Bld) [#/Vol] 0.14 10*3/uL Normal 0.00-0.48 [facility] Comment on above: Performed By: #### B ILTO, IPB, URICB, TP #### [facility] (DEFAULT) [address] [place] [address] 72713 Eosinophils/100 WBC (Bld) 2.2 % Normal [facility] Comment on above: Performed By: #### B ILTO, IPB, URICB, TP #### [facility] (DEFAULT) [address] [place] [address] 35325 Hematocrit (Bld) [Volume fraction] 32.6 % Low 39.6-48.8 [facility] Comment on above: Performed By: #### B ILTO, IPB, URICB, TP #### [facility] (DEFAULT) [address] [place] [address] 90230 Hemoglobin (Bld) [Mass/Vol] 10.7 g/dL Low 13.4-16.8 [facility] Comment on above: Performed By: #### B ILTO, IPB, URICB, TP #### [facility] (DEFAULT) [address] [place] [address] 13776 Immature Grans % 0.3 % Normal [facility] Comment on above: Performed By: #### B ILTO, IPB, URICB, TP #### [facility] (DEFAULT) [address] [place] [address] 45558 Immature Grans Absolute <0.04 Normal <=0.07 [facility] Comment on above: Performed By: #### B ILTO, IPB, URICB, TP #### [facility] (DEFAULT) [address] [place] [address] 97857 Lymphocytes (Bld) [#/Vol] 0.88 10*3/uL Normal 0.83-3.57 [facility] Comment on above: Performed By: #### B ILTO, IPB, URICB, TP #### [facility] (DEFAULT) [address] [place] [address] 07871 Lymphocytes/100 WBC (Bld) 13.8 % Normal [facility] Comment on above: Performed By: #### B ILTO, IPB, URICB, TP #### [facility] (DEFAULT) [address] [place] [address] 19396 MCV (RBC) [Entitic vol] 95.9 fL High 79.0-94.5 [facility] Comment on above: Performed By: #### B ILTO, IPB, URICB, TP #### [facility] (DEFAULT) [address] [place] [address] 41091 Mean Cell Hgb 31.5 pg Normal 26.1-33.3 [facility] Comment on above: Performed By: #### B ILTO, IPB, URICB, TP #### [facility] (DEFAULT) [address] [place] [address] 32026 Mean Cell Hgb Conc 32.8 g/dL Normal 31.9-36.5 [facility] Comment on above: Performed By: #### B ILTO, IPB, URICB, TP #### [facility] (DEFAULT) [address] [place] [address] 24190 Monocytes (Bld) [#/Vol] 0.62 10*3/uL Normal 0.24-0.93 [facility] Comment on above: Performed By: #### B ILTO, IPB, URICB, TP #### [facility] (DEFAULT) [address] [place] [address] 90551 Monocytes/100 WBC (Bld) 9.7 % Normal [facility] Comment on above: Performed By: #### B ILTO, IPB, URICB, TP #### [facility] (DEFAULT) [address] [place] [address] 63311 Nucleated RBC 0.0 /100 WBC Normal <=0.2 [facility] Comment on above: Performed By: #### B ILTO, IPB, URICB, TP #### [facility] (DEFAULT) [address] [place] [address] 71779 Platelet mean volume (Bld) [Entitic vol] 9.7 fL Normal 8.7-12.3 [facility] Comment on above: Performed By: #### B ILTO, IPB, URICB, TP #### [facility] (DEFAULT) [address] [place] [address] 22389 Platelets (Bld) [#/Vol] 192 10*3/uL Normal 146-337 [facility] Comment on above: Performed By: #### B ILTO, IPB, URICB, TP #### [facility] (DEFAULT) [address] [place] [address] 89315 RBC (Bld) [#/Vol] 3.40 10*6/uL Low 4.38-5.83 [facility] Comment on above: Performed By: #### B ILTO, IPB, URICB, TP #### [facility] (DEFAULT) [address] [place] [address] 87017 RBC Distribution 14.5 % High 10.9-14.3 [facility] Comment on above: Performed By: #### B ILTO, IPB, URICB, TP #### [facility] (DEFAULT) [address] [place] [address] 23780 Segs + Bands Auto 73.7 % Normal [facility] Comment on above: Performed By: #### B ILTO, IPB, URICB, TP #### [facility] (DEFAULT) [address] [place] [address] 09768 Segs + Bands,Absolute Auto 4.69 K/uL Normal 1.57-6.19 [facility] Comment on above: Performed By: #### B ILTO, IPB, URICB, TP #### [facility] (DEFAULT) [address] [place] [address] 29596 WBC (Bld) [#/Vol] 6.37 10*3/uL Normal 3.73-10.10 [facility] Comment on above: Performed By: #### B ILTO, IPB, URICB, TP #### [facility] (DEFAULT) [address] [place] [address] 90101 Basophils (Bld) [#/Vol] 10*3/uL 0.00 - 0.09 K/uL [facility] Basophils/100 WBC (Bld) 0.3 % [facility] Differential cell count method Nom (Bld) Electronic Differential [facility] Eosinophils (Bld) [#/Vol] 0.14 10*3/uL 0.00 - 0.48 K/uL [facility] Eosinophils/100 WBC (Bld) 2.2 % [facility] Erythrocyte distribution width (RBC) [Ratio] 14.5 % High 10.9 - 14.3 % [facility] Hematocrit (Bld) [Volume fraction] 32.6 % Low 39.6 - 48.8 % [facility] Hemoglobin (Bld) [Mass/Vol] 10.7 g/dL Low 13.4 - 16.8 g/dL [facility] Immature granulocytes (Bld) [#/Vol] 10*3/uL <=0.07 K/uL [facility] Immature granulocytes/100 WBC (Bld) 0.3 % [facility] Interpretation and review of laboratory results Abnormal [facility] Lymphocytes (Bld) [#/Vol] 0.88 10*3/uL 0.83 - 3.57 K/uL [facility] Lymphocytes/100 WBC (Bld) 13.8 % [facility] MCH (RBC) [Entitic mass] 31.5 pg 26.1 - 33.3 pg [facility] MCHC (RBC) [Mass/Vol] 32.8 g/dL 31.9 - 36.5 g/dL [facility] MCV (RBC) [Entitic vol] 95.9 fL High 79.0 - 94.5 fL [facility] Monocytes (Bld) [#/Vol] 0.62 10*3/uL 0.24 - 0.93 K/uL [facility] Monocytes/100 WBC (Bld) 9.7 % [facility] Neutrophils (Bld) [#/Vol] 4.69 10*3/uL 1.57 - 6.19 K/uL [facility] Nucleated RBC/100 WBC (Bld) [Ratio] 0.0 % <=0.2 /100 WBC [facility] Platelet mean volume (Bld) [Entitic vol] 9.7 fL 8.7 - 12.3 fL [facility] Platelets (Bld) [#/Vol] 192 10*3/uL 146 - 337 K/uL [facility] RBC (Bld) [#/Vol] 3.40 10*6/uL Low [facility] Segmented neutrophils/100 WBC (Bld) 73.7 % [facility] WBC (Bld) [#/Vol] 6.37 10*3/uL 3.73 - 10. 10 K/uL [facility] CHEM 7 (LYTES,BUN,CREA,GLUC) on 03-06-2022 Anion gap [Moles/Vol] 14 mmol/L Normal 7-17 [facility] Comment on above: Performed By: #### B ILTO, IPB, URICB, TP #### [facility] (DEFAULT) [address] [place] [address] 71899 Chloride [Moles/Vol] 98 mmol/L Normal 98-108 [facility] Comment on above: Performed By: #### B ILTO, IPB, URICB, TP #### [facility] (DEFAULT) [address] [place] [address] 15599 CO2 [Moles/Vol] 33 mmol/L High 21-31 [facility] Comment on above: Performed By: #### B ILTO, IPB, URICB, TP #### [facility] (DEFAULT) [address] [place] [address] 31184 Creatinine [Mass/Vol] 5.09 mg/dL High 0.70-1.30 [facility] Comment on above: Performed By: #### B ILTO, IPB, URICB, TP #### [facility] (DEFAULT) [address] [place] [address] 25804 GFR/1.73 sq M.predicted among non-blacks MDRD (S/P/Bld) [Vol rate/Area] 12 mL/min/{1.73_m2} Low >=60 [facility] Comment on above: Result Comment: Repo rted eGFR is based on the CKD-EPI 2020 equation using creatinine, age, and sex. Performed By: #### B ILTO, IPB, URICB, TP #### [facility] (DEFAULT) [address] [place] [address] 87467 Glucose [Mass/Vol] 118 mg/dL High 70-99 [facility] Comment on above: Performed By: #### B ILTO, IPB, URICB, TP #### [facility] (DEFAULT) [address] [place] [address] 92651 Osmolality [Osmolality] 308 mosm/kg High 278-305 [facility] Comment on above: Performed By: #### B ILTO, IPB, URICB, TP #### [facility] (DEFAULT) [address] [place] [address] 34637 Potassium [Moles/Vol] 4.8 mmol/L Normal 3.5-5.0 [facility] Comment on above: Performed By: #### B ILTO, IPB, URICB, TP #### [facility] (DEFAULT) [address] [place] [address] 09721 Sodium [Moles/Vol] 140 mmol/L Normal 135-145 [facility] Comment on above: Performed By: #### B ILTO, IPB, URICB, TP #### [facility] (DEFAULT) [address] [place] [address] 71055 Urea nitrogen [Mass/Vol] 48 mg/dL High 7-25 [facility] Comment on above: Performed By: #### B ILTO, IPB, URICB, TP #### [facility] (DEFAULT) [address] [place] [address] 75668 Urea nitrogen/Creatinine [Mass ratio] 9 mg/mg Normal [facility] Comment on above: Performed By: #### B ILTO, IPB, URICB, TP #### [facility] (DEFAULT) [address] [place] [address] 78263 Anion gap [Moles/Vol] 14 mmol/L 7 - 17 mmol/L [facility] Chloride [Moles/Vol] 98 mmol/L 98 - 10 8 mmol/L [facility] CO2 [Moles/Vol] 33 mmol/L High 21 - 31 mmol/L [facility] Creatinine [Mass/Vol] 5.09 mg/dL High 0.70 - 1.30 mg/dL [facility] GFR/1.73 sq M.predicted CKD-EPI (S/P/Bld) [Vol rate/Area] 12 Low >=60 mL/min/1.73m 2 [facility] Comment on above: Reported eGFR is bas ed on the CKD-EPI 2020 equation using creatinine, age, and sex. Glucose [Mass/Vol] 118 mg/dL High 70 - 99 mg/dL [facility] Osmolality Calc [Osmolality] 308 High [facility] Potassium [Moles/Vol] 4.8 mmol/L 3.5 - 5.0 mmol/L [facility] Sodium [Moles/Vol] 140 mmol/L 135 - 145 mmol/L [facility] Urea nitrogen [Mass/Vol] 48 mg/dL High 7 - 25 mg/dL [facility] Urea nitrogen/Creatinine [Mass ratio] 9 mg/mg [facility] CMV IGG ABon 03-06-2022 CMV IgG Antibody Positive Abnormal Negative [facility] Comment on above: Performed By: #### B ILTO, IPB, URICB, TP #### [facility] (DEFAULT) [address] [place] [address] 31152 EBV VCA IGG ABon 03-06-2022 EBV VCA IgG Antibody Positive Abnormal Negative [facility] Comment on above: Performed By: #### H SVM, HSVG12, EBVG, VZISB #### [facility] (DEFAULT) [address] [place] [address] 00953 GGTon 03-06-2022 Gamma glutamyl transferase [Catalytic activity/Vol] 13 U/L Normal 8-64 [facility] Comment on above: Performed By: #### B ILTO, IPB, URICB, TP #### [facility] (DEFAULT) [address] [place] [address] 41690 Gamma glutamyl transferase [Catalytic activity/Vol] 13 U/L 8 - 64 U/L [facility] HBV core IgG+IgM Ql (S)on Interpretation and review of laboratory results Normal [facility] HEMOGLOBIN A1Con 03-06-2022 Glucose [Mass/Vol] 137 mg/dL Normal [facility] Comment on above: Performed By: #### A 1CB #### [facility] (DEFAULT) [address] [place] [address] 98752 HbA1c (Bld) [Mass fraction] 6.4 % High 4.7-5.6 [facility] Comment on above: Performed By: #### A 1CB #### [facility] (DEFAULT) [address] [place] [address] 85155 HEMOGLOBIN [id number] By: Lisandro Heart on 03-06-2022 Average glucose Estimated from glycated hemoglobin (Bld) [Mass/Vol] 137 mg/dL [facility] HbA1c (Bld) [Mass fraction] 6.4 % High 4.7 - 5.6 % [facility] Interpretation and review of laboratory results Abnormal [facility] HEP B CORE AB,TOTAL(IGG+IGM) on 03-06-2022 HBV core IgG+IgM Ql (S) Negative Negative [facility] Hep B Core Ab,Total (IgG+IgM) Negative Normal Negative [facility] Comment on above: Performed By: #### B ILTO, IPB, URICB, TP #### [facility] (DEFAULT) [address] [place] [address] 79744 HEPATITIS B SURFACE ANTIBODY on 03-06-2022 HBV surface Ab IA Ql (S) Negative Negative [facility] Interpretation and review of laboratory results Normal [facility] Hep B Surface Ab Negative Normal Negative [facility] Comment on above: Performed By: #### B ILTO, IPB, URICB, TP #### [facility] (DEFAULT) [address] [place] [address] 46637 HEPATITIS B SURFACE ANTIGENO rdered By: Edelmira English on 03-06-2022 HBV surface Ag Ql (S) Negative Negative [facility] Interpretation and review of laboratory results Normal [facility] HEPATITIS B SURFACE ANTIGENo n 03-06-2022 Hepatitis B Surface Ag Negative Normal Negative [facility] Comment on above: Performed By: #### B ILTO, IPB, URICB, TP #### [facility] (DEFAULT) [address] [place] [address] 13816 HEPATITIS C ANTIBODYon 03-06 HCV Ab Ql (S) Negative Negative [facility] Interpretation and review of laboratory results Normal [facility] Normal Negative [facility] Comment on above: Performed By: #### B ILTO, IPB, URICB, TP #### [facility] (DEFAULT) [address] [place] [address] 99177 HIV 1 AND 2 ANTIBODIESon HIV 1+2 Ab+HIV1 p24 Ag IA Ql Non-Reactive Non Reactive [facility] HIV-1/HIV-2 Ab With p24 Antigen Non-Reactive Normal Non Reactive [facility] Comment on above: Performed By: #### B ILTO, IPB, URICB, TP #### [facility] (DEFAULT) [address] [place] [address] HIV 1+2 Ab+HIV1 p24 Ag IA Ql on 03-06-2022 Interpretation and review of laboratory results Normal [facility] HLA TYPING (SOLID ORGAN)on 0 03-06-2022 A 1,1 Normal [facility] Comment on above: Performed By: #### B ILTO, IPB, URICB, TP #### [facility] (DEFAULT) [address] [place] [address] 88723 B 8,27 Normal [facility] Comment on above: Performed By: #### B ILTO, IPB, URICB, TP #### [facility] (DEFAULT) [address] [place] [address] 43007 BW 6,4 [facility] Comment on above: Performed By: #### B ILTO, IPB, URICB, TP #### [facility] (DEFAULT) [address] [place] [address] 96491 C 2,7 [facility] Comment on above: Performed By: #### B ILTO, IPB, URICB, TP #### [facility] (DEFAULT) [address] [place] [address] 66248 DPB1* DPB11 - [facility] Comment on above: Performed By: #### B ILTO, IPB, URICB, TP #### [facility] (DEFAULT) [address] [place] [address] 51841 DPB1*DPB1A 03:01 [facility] Comment on above: Performed By: #### B ILTO, IPB, URICB, TP #### [facility] (DEFAULT) [address] [place] [address] 75526 DQA1* 02 [facility] Comment on above: Performed By: #### B ILTO, IPB, URICB, TP #### [facility] (DEFAULT) [address] [place] [address] 21247 DQA1*DQA11 05 [facility] Comment on above: Performed By: #### B ILTO, IPB, URICB, TP #### [facility] (DEFAULT) [address] [place] [address] 57136 DQB1 2,8 [facility] Comment on above: Performed By: #### B ILTO, IPB, URICB, TP #### [facility] (DEFAULT) [address] [place] [address] 84018 DQB1* 02 [facility] Comment on above: Performed By: #### B ILTO, IPB, URICB, TP #### [facility] (DEFAULT) [address] [place] [address] 26799 DQB1* - DQB11 03 [facility] Comment on above: Performed By: #### B ILTO, IPB, URICB, TP #### [facility] (DEFAULT) [address] [place] [address] 17,7 [facility] Comment on above: Performed By: #### B ILTO, IPB, URICB, TP #### [facility] (DEFAULT) [address] [place] [address] 63198 DR51,52,53 52,53 [facility] Comment on above: Performed By: #### B ILTO, IPB, URICB, TP #### [facility] (DEFAULT) [address] [place] [address] 79133 DRB1* 03 [facility] Comment on above: Performed By: #### B ILTO, IPB, URICB, TP #### [facility] (DEFAULT) [address] [place] [address] 62962 DRB1* - DRB11 07 [facility] Comment on above: Performed By: #### B ILTO, IPB, URICB, TP #### [facility] (DEFAULT) [address] [place] [address] 98361 DRB3* 01 [facility] Comment on above: Performed By: #### B ILTO, IPB, URICB, TP #### [facility] (DEFAULT) [address] [place] [address] 71250 DRB4* 01 [facility] Comment on above: Performed By: #### B ILTO, IPB, URICB, TP #### [facility] (DEFAULT) [address] [place] [address] 68390 HLA A* 01 [facility] Comment on above: Performed By: #### B ILTO, IPB, URICB, TP #### [facility] (DEFAULT) [address] [place] [address] 79038 HLA A* - HLAAA 01 [facility] Comment on above: Performed By: #### B ILTO, IPB, URICB, TP #### [facility] (DEFAULT) [address] [place] [address] 25432 HLA B* 08 [facility] Comment on above: Performed By: #### B ILTO, IPB, URICB, TP #### [facility] (DEFAULT) [address] [address] HLA B* - HLABBB 27 Normal [facility] Comment on above: Performed By: #### B ILTO, IPB, URICB, TP #### [facility] (DEFAULT) [address] [address] HLA C* 02 Normal [facility] Comment on above: Performed By: #### B ILTO, IPB, URICB, TP #### [facility] (DEFAULT) [address] [address] HLA C* - HLACC 07 Normal [facility] Comment on above: Performed By: #### B ILTO, IPB, URICB, TP #### [facility] (DEFAULT) [address] [address] HLA INTERPRETATION Normal [facility] Comment on above: Result Comment: LIST ED [...] need for FDA approval.Testing performed by the [facility] Clinical Histocompatibility Laboratory. [facility] number: [id number]. [place] number: [id number], Director: Robbin Neff, PhD, D([facility]). Performed By: #### B ILTO, IPB, URICB, TP #### [facility] (DEFAULT) [address] [place] [address] 65903 HSV 1 AND 2 IGG ANTIBODYon 0 03-06-2022 HSV 1 IgG Antibody Positive Abnormal Negative [facility] Comment on above: Performed By: #### H SVM, HSVG12, EBVG, VZISB #### [facility] (DEFAULT) [address] [place] [address] 43557 HSV 2 IgG Antibody Negative Normal Negative [facility] Comment on above: Performed By: #### H SVM, HSVG12, EBVG, VZISB #### [facility] (DEFAULT) [address] [place] [address] 31943 HSV IGM ANTIBODYon 2 HSV I/II IgM Antibody Negative Normal Negative [facility] Comment on above: Performed By: #### H SVM, HSVG12, EBVG, VZISB #### [facility] (DEFAULT) [address] [place] [address] 54280 MAGNESIUMon 03-06-2022 Magnesium [Mass/Vol] 2.0 mg/dL Normal 1.6-2.6 [facility] Comment on above: Performed By: #### B ILTO, IPB, URICB, TP #### [facility] (DEFAULT) [address] [place] [address] 26068 Magnesium [Mass/Vol] 2.0 mg/dL 1.6 - 2 .6 mg/dL [facility] No Panel Informationon 03-06 ABO/RH(D) TYPE Negative [facility] Interpretation and review of laboratory results Normal [facility] Interpretation and review of laboratory results Abnormal [facility] Interpretation and review of laboratory results Normal [facility] OSMOLALITYon 03-06-2022 Osmolality [Osmolality] 312 mosm/kg High 278-305 [facility] Comment on above: Performed By: #### B REGAN MENA URICLeslye, TP #### [facility] (DEFAULT) [address] [place] [address] 61181 OSMOLALITYOrdered By: Staci beck on 03-06-2022 Interpretation and review of laboratory results Abnormal [facility] Osmolality [Osmolality] 312 mosm/kg High [facility] PHOSPHATE, INORGANICon 03-06 Phosphorous 4.0 mg/dL Normal 2.2-4.6 [facility] Comment on above: Performed By: #### B REGAN MENA URICLeslye, TP #### [facility] (DEFAULT) [address] [place] [address] 43470 Phosphate [Mass/Vol] 4.0 mg/dL 2.2 - 4 .6 mg/dL [facility] PROTEIN TOTALon 03-06-2022 Protein [Mass/Vol] 7.2 g/dL Normal 6.4-8.3 [facility] Comment on above: Performed By: #### B REGAN MENA URICB, TP #### [facility] (DEFAULT) [address] [place] [address] 44197 Protein [Mass/Vol] 7.2 g/dL 6.4 - 8.3 g/dL [facility] PT,INR,PTTon 03-06-2022 aPTT Coag (Bld) [Time] 30.4 s Normal 24.0-34.3 [facility] Comment on above: Performed By: #### B INA MENAB, URICB, TP #### [facility] (DEFAULT) [address] [place] [address] 20535 INR Coag (PPP) [Relative time] 1.1 {INR} Normal 0.9-1.1 [facility] Comment on above: Performed By: #### B REGAN MENA, URICB, TP #### [facility] (DEFAULT) [address] [place] [address] 42281 PT Coag (PPP) [Time] 13.8 s Normal 11.9-14.2 [facility] Comment on above: Performed By: #### B ILTO, IPB, URICB, TP #### [facility] (DEFAULT) [address] [place] [address] 21165 aPTT Coag (PPP) [Time] 30.4 s [facility] INR Coag (Bld) [Relative time] 1.1 {INR} [facility] Interpretation and review of laboratory results Normal [facility] PT Coag (PPP) [Time] 13.8 s [facility] PTH INTACTon 03-06-2022 Interpretation and review of laboratory results Abnormal [facility] Parathyrin.intact [Mass/Vol] 290.0 pg/mL High 14.0 - 72.0 pg/mL [facility] Intact PTH 290.0 pg/mL High 14.0-72.0 [facility] Comment on above: Performed By: #### B ILTO, IPB, URICB, TP #### [facility] (DEFAULT) [address] [place] [address] 73934 TOXICOLOGY DRUG SCREEN, SERU MOrdered By: Maria Carvajal on 03-06-2022 Barbiturates Ql (U) Negative Cutoff: 1000 ng/mL [facility] Drugs of abuse panel Screen (Bld) Negative Negative [facility] Interpretation and review of laboratory results Normal [facility] For Medical Purposes Only. Nonforensic screen results are considered presumptive and no confirmatory testing will follow. Drugs are detected by immunoassay or Liquid Chromatography Mass Spectrometry (LC-MS/MS). The LC-MS/MS test was developed and its performance characteristics determined by the Toxicology Laboratory at [facility]. It has not been cleared or [...] Tramadol(50), Trazodone(25), Triazolam(100), Trifluoperazine (100),Venlafaxine(50), Verapamil(100), Zolpidem(200) [facility] TOXICOLOGY DRUG SCREEN, SERU 03-06-2022 Barbiturates Negative Normal Cutoff: 1000 ng/mL [facility] Comment on above: Order Comment: For M edical Purposes Only. Nonforensic screen results are considered presumptive and no confirmatory testing will follow. Drugs are detected by immunoassay or Liquid Chromatography Mass Spectrometry (LC-MS/MS). The LC-MS/MS test was developed and its performance characteristics determined by the Toxicology Laboratory at [facility]. It has not been cleared or [...] Alphahydrozyalprazolam(200), Alprazolam(50), Amitriptyline(50), Amphetamine(250), Atenolol(500), Benzoylecgonine(50), Buprenorphine(100), Bupropion(25),Caffeine(86942),Chlordiazepoxide(50), Chlorpheniramine(100), Chlorpromazine(50), Citalopram(100), Clonazepam(200), Cocaine(25),Codeine(200), Cotinine(500),Desipramine(50), Desmethyldoxepin(100), Dextromethorphan(100),Diazepam(100),Dihydrocodeine(100),Diltazem (50),Diphenhydramine(100),Doxepin(100),EDDP/methadone(100), Ephedrine/Pseudoephedrine(100),Fentanyl(25),Flunitrazepam(100),F luoxetine(200), Flurazepam(50),Gabapentin(1500), Haloperidol(25), Hydrocodone(100), Hydromorphone(200), Imipramine(50), Ketamine(25), Lidocaine(25),Lorazepam(100), Lysergide(LSD)(25),Maprotiline(200),MDA(250),MDMA(250),Meperidin e(50),Midazolam (200),Methadone(50), Methamphetamine(500), Methylphenidate(50), Metoprolol(50), Morphine(200),Nalbuphine(50), Naloxone(200), Norbuprenorphine(300), Nordiazepam(100), Norfentanyl(50),Noroxycodone (100), Norpropoxyphene(50), Nortriptyline(50),Olanzapine(200),Oxazepam(200),Oxycodone(100),O xymorphone(200), Phencyclidine(PCP)(25), Pheniramine(25), Pregabalin(1500), Promethazine(50), Propoxyphene(100), Propanolol(50), Quetiapine(25), Quinidine(500), Ranitidine(500), Risperidone(100), Sertraline(50),Temazepam(100), Thioridazine(100), Tramadol(50), Trazodone(25), Triazolam(100), Trifluoperazine (100),Venlafaxine(50), Verapamil(100), Zolpidem(200) Performed By: #### S ERDRG #### [facility] (DEFAULT) [address] [place] [address] Drugs Detected Negative Normal Negative [facility] Comment on above: Order Comment: For M edical Purposes Only. Nonforensic screen results are considered presumptive and no confirmatory testing will follow. Drugs are detected by immunoassay or Liquid Chromatography Mass Spectrometry (LC-MS/MS). The LC-MS/MS test was developed and its performance characteristics determined by the Toxicology Laboratory at [facility]. It has not been cleared or [...] Alphahydrozyalprazolam(200), Alprazolam(50), Amitriptyline(50), Amphetamine(250), Atenolol(500), Benzoylecgonine(50), Buprenorphine(100), Bupropion(25),Caffeine(42310),Chlordiazepoxide(50), Chlorpheniramine(100), Chlorpromazine(50), Citalopram(100), Clonazepam(200), Cocaine(25),Codeine(200), Cotinine(500),Desipramine(50), Desmethyldoxepin(100), Dextromethorphan(100),Diazepam(100),Dihydrocodeine(100),Diltazem (50),Diphenhydramine(100),Doxepin(100),EDDP/methadone(100), Ephedrine/Pseudoephedrine(100),Fentanyl(25),Flunitrazepam(100),F luoxetine(200), Flurazepam(50),Gabapentin(1500), Haloperidol(25), Hydrocodone(100), Hydromorphone(200), Imipramine(50), Ketamine(25), Lidocaine(25),Lorazepam(100), Lysergide(LSD)(25),Maprotiline(200),MDA(250),MDMA(250),Meperidin e(50),Midazolam (200),Methadone(50), Methamphetamine(500), Methylphenidate(50), Metoprolol(50), Morphine(200),Nalbuphine(50), Naloxone(200), Norbuprenorphine(300), Nordiazepam(100), Norfentanyl(50),Noroxycodone (100), Norpropoxyphene(50), Nortriptyline(50),Olanzapine(200),Oxazepam(200),Oxycodone(100),O xymorphone(200), Phencyclidine(PCP)(25), Pheniramine(25), Pregabalin(1500), Promethazine(50), Propoxyphene(100), Propanolol(50), Quetiapine(25), Quinidine(500), Ranitidine(500), Risperidone(100), Sertraline(50),Temazepam(100), Thioridazine(100), Tramadol(50), Trazodone(25), Triazolam(100), Trifluoperazine (100),Venlafaxine(50), Verapamil(100), Zolpidem(200) Performed By: #### S ERDRG #### [facility] (DEFAULT) [address] [address] TYPE AND SCREENon 03-06-2022 ABO/RH(D) TYPE Negative Normal [facility] Comment on above: Performed By: #### B ILTO, IPB, URICB, TP #### [facility] (DEFAULT) [address] [place] [address] 82500 URIC ACIDon 03-06-2022 Urate [Mass/Vol] 5.6 mg/dL Normal 3.5-7.0 [facility] Comment on above: Performed By: #### B ILTO, IPB, URICB, TP #### [facility] (DEFAULT) [address] [place] [address] 72401 Urate [Mass/Vol] 5.6 mg/dL 3.5 - 7.0 mg/dL [facility] VARICELLA IGG AB (IMM STATUS )on 03-06-2022 Varicella Immune Status IgG Antibody Positive Normal Positive [facility] Comment on above: Result Comment: Prio r exposure to the varicella zoster virus may cause measurable varicella zoster IgG antibody. Performed By: #### H SVM, HSVG12, EBVG, VZISB #### [facility] (DEFAULT) [address] [place] [address] 88428 Varicella Immune Status IgG Index 1.1 Normal [facility] Comment on above: Result Comment: THIS IS A QUALITATIVE ASSAY. The numeric value is not necessarily indicative of the amount of anti-Measles, Mumps, Rubella, or VZV IgG antibody present. Results should be interpreted in conjunction with clinical and epidemological data. Performed By: #### H SVM, HSVG12, EBVG, VZISB #### [facility] (DEFAULT) [address] [place] [address] 42578 Glucose,Bedsideon 02-25-2021 Glucose [Mass/Vol] 96 mg/dL Normal 70-100 [facility] Comment on above: Result Comment: Test performed by glucose meter. Results may be 10%-15% lower than serum/plasma values. (CLIA ID [id number]) Performed By: #### B GLU #### [facility] [address] [place] [address] Glucose [Mass/Vol] 94 mg/dL Normal 70-100 [facility] Comment on above: Result Comment: Test performed by glucose meter. Results may be 10%-15% lower than serum/plasma values. (CLIA ID [id number]) Performed By: #### B GLU #### [facility] [address] [place] [address] Op Noteon 02-25-2021 Op Note PATIENT: Simeon [...] room in stable condition. Diskriter Job ID: [id number] Nick Mancilla MD DOD:02/25/2021 09:27 A BJORN/herman DOT:02/25/2021 10:23 A Job Number: [id number] Document Number: [id number] cc: Nick Mancilla MD [facility] [address] [place] [address] Normal [facility] Potassiumon 02-25-2021 Potassium [Moles/Vol] 4.4 mmol/L Normal 3.5-5.1 [facility] Comment on above: Performed By: #### K 3 #### [facility] [address] [place] [address] Basic Metabolic Panelon 01-26 Calcium [Mass/Vol] 9.4 mg/dL Normal 8.4-10.4 [facility] Comment on above: Performed By: #### B MP3, HEMOG ####[facility] [address] [place] [address] Glucose [Mass/Vol] 171 mg/dL High 70-100 [facility] Comment on above: Performed By: #### B MP3, HEMOG ####[facility] [address] [place] [address] Anion gap [Moles/Vol] 5 mmol/L Normal 3-13 [facility] Comment on above: Performed By: #### B MP3, HEMOG ####[facility] [address] [place] [address] CO2 [Moles/Vol] 31 mmol/L High 22-30 [facility] Comment on above: Performed By: #### B MP3, HEMOG ####[facility] [address] [place] [address] Creatinine [Mass/Vol] 4.14 mg/dL High 0.52-1.25 [facility] Comment on above: Performed By: #### B MP3, HEMOG ####[facility] [place] [address] GFR/1.73 sq M.predicted among blacks MDRD (S/P/Bld) [Vol rate/Area] 16.6 mL/min/{1.73_m2} Abnormal >60 [facility] Comment on above: Performed By: #### B MP3, HEMOG ####[facility] [place] [address] GFR/1.73 sq M.predicted among non-blacks MDRD (S/P/Bld) [Vol rate/Area] 14.3 mL/min/{1.73_m2} Abnormal >60 [facility] Comment on above: Result Comment: KDIG O [...] secretion. Performed By: #### Leslye MP3, HEMOG ####[facility] [place] [address] Urea nitrogen [Mass/Vol] 46 mg/dL High 7-20 [facility] Comment on above: Performed By: #### Leslye MP3, HEMOG ####[facility] [place] [address] Chloride [Moles/Vol] 100 mmol/L Normal 98-107 [facility] Comment on above: Performed By: #### B MP3, HEMOG ####[facility] [place] [address] Potassium [Moles/Vol] 4.9 mmol/L Normal 3.5-5.1 [facility] Comment on above: Performed By: #### B MP3, HEMOG ####[facility] [place] [address] Sodium [Moles/Vol] 135 mmol/L Normal 135-145 [facility] Comment on above: Performed By: #### B MP3, HEMOG ####[facility] [place] [address] Hemogramon 02-21-2021 Erythrocyte distribution width (RBC) [Ratio] 18.0 % High 11.5-14.5 [facility] Comment on above: Performed By: #### B MP3, HEMOG ####[facility] [place] [address] Hematocrit (Bld) [Volume fraction] 33.5 % Low 40.0-52.0 [facility] Comment on above: Performed By: #### B MP3, HEMOG ####[facility] [place] [address] Hemoglobin (Bld) [Mass/Vol] 11.3 g/dL Low 13.0-18.0 [facility] Comment on above: Performed By: #### B MP3, HEMOG ####[place] [address] [place] [address] MCH (RBC) [Entitic mass] 31.0 pg Normal 26.0-34.0 [facility] Comment on above: Performed By: #### B MP3, HEMOG ####[facility] [place] [address] MCHC 33.7 % Normal 32.0-36.0 [facility] Comment on above: Performed By: #### B MP3, HEMOG ####[place] [address] [place] [address] MCV (RBC) [Entitic vol] 92.0 fL Normal 80.0-98.0 [facility] Comment on above: Performed By: #### B MP3, HEMOG ####[place] [address] [place] [address] Platelet mean volume (Bld) [Entitic vol] 7.4 fL Normal 7.4-10.4 [facility] Comment on above: Performed By: #### B MP3, HEMOG ####[place] [address] [place] [address] Platelets (Bld) [#/Vol] 218 10*3/uL Normal 140-440 [facility] Comment on above: Performed By: #### B MP3, HEMOG ####[facility] [address] [place] [address] RBC (Bld) [#/Vol] 3.64 10*6/uL Low 4.40-5.90 [facility] Comment on above: Performed By: #### B MP3, HEMOG ####[facility] [address] [place] [address] WBC (Bld) [#/Vol] 7.1 10*3/uL Normal 3.6-10.7 [facility] Comment on above: Performed By: #### B MP3, HEMOG ####[facility] [address] [place] [address] VL Arterial Duplex US Hemo D uplexon 01-26-2021 VL Arterial Duplex US Hemo Duplex Patient Name: MAURI QUINONES Ultrasound ACCESSION EXAM DATE/TIME PROCEDURE ORDERING PROVIDER [id number] 01/26/2021 14:13 EDT VL Arterial Duplex US NICK MANCILLA Hemo Duplex CPT code 28289 Reason For Exam (VL Arterial Duplex US Hemo Duplex) fistula not maturing Report [facility] Upper Extremity Hemodialysis Access Follow-up Evaluation Patient Stacie, : 1955 Study 01/26/2021 Name: Mauri Delcid (65yrs) Date: Patient [id number] Age: 65 Account: [id number] ID: Gender: M Loc: BP: Ordering Physician: Nick Mancilla MD Berry Picker: Yajaira Sewell RDMS, RVT Interpreting Physician: Андрей Lawson M.D. Location: [facility] Indications: Avf failing to mature. Conclusions 1. [...] supine position. Images were obtained using a drchrono E9 vascular ultrasound machine. Ultrasound Report Findings [...] АНДРЕЙ LAWSON Cardiovascular ACCESSION EXAM DATE/TIME PROCEDURE [id number] 01/26/2021 14:13 EDT VL Arterial Duplex US Hemo Duplex CPT code 32678 Reason For Exam (VL Arterial Duplex US Hemo Duplex) fistula not maturing Report [facility] Upper Extremity Hemodialysis Access Follow-up Evaluation Patient Stacie, : 1955 Study 01/26/2021 Cardiovascular Report Name: Mauri Delcid (65yrs) Date: Patient [id number] Age: 65 Account: [id number] ID: Gender: Aditya Loc: BP: Ordering Physician: Nick Mancilla MD Berry Picker: Yajaira Sewell RDMS, RVT Interpreting Physician: Андрей Lawson M.D. Location: [facility] Indications: Avf failing to mature. Conclusions 1. [...] the supi (more content not included)... Normal [facility] VL Hemodialysis AccessOrdere d By: Nick Mancilla on 01-26-2021 [facility] Upper Extremity Hemodialysis Access Follow-up Evaluation Patient Stacie, : 1955 Study 01/26/2021 Name: Mauri Delcid (65yrs) Date: Patient [id number] Age: 65 Account: [id number] ID: Gender: M Loc: BP: Ordering Physician: Nick Mancilla MD Berry Picker: Yajaira Sewell RDMS, RVT Interpreting Physician: Андрей Lawson M.D. Location: [facility] Indications: Avf failing to mature. Conclusions 1. [...] supine position. Images were obtained using a drchrono E9 vascular ultrasound machine. Findings Subclavian arteries: [...] signed by Андрей Lawson M.D. 01/26/2021 17:05 [facility] Work Phone: Thang, [facility] Incoming Cardiology Results From Julio C/April - 01/26/2021 5:06 PM EDT [facility] Upper Extremity Hemodialysis Access Follow-up Evaluation Patient DO StacieB: 1955 Study 01/26/2021 Name: Mauri Delcid (65yrs) Date: Patient [id number] Age: 65 Account: [id number] ID: Gender: M Loc: BP: Ordering Physician: Nick Mancilla MD Berry Picker: Yajaira Sewell RDMS, RVT Interpreting Physician: Андрей Lawson M.D. Location: [facility] Indications: Avf failing to mature. Conclusions 1. [...] supine position. Images were obtained using a drchrono E9 vascular ultrasound machine. Findings Subclavian arteries: [...] signed by Андрей Lawson M.D. 01/26/2021 17:05 [facility] Work Phone: Ku Work Phone: Glucose,Bedsideon 2020 Glucose [Mass/Vol] 109 mg/dL High 70-100 [facility] Comment on above: Result Comment: Test performed by glucose meter. Results may be 10%-15% lower than serum/plasma values. (CLIA ID [id number]) Performed By: #### B GLU #### [facility] [address] [place] [address] Glucose [Mass/Vol] 101 mg/dL High 70-100 [facility] Comment on above: Result Comment: Test performed by glucose meter. Results may be 10%-15% lower than serum/plasma values. (CLIA ID [id number]) Performed By: #### B GLU #### [facility] [address] [facility] [address] Op Noteon 2020 Op Note PATIENT: Simeon [...] DIAGNOSIS: End-stage renal disease. ANESTHESIA: Regional block. SUTURE WINDER HAND: Candice Tellez PA-C. ESTIMATED BLOOD LOSS: 25 [...] room in stable condition. Diskriter Job ID: [id number] Nick Mancilla MD DOD:2020 11:45 A BJORN/herman DOT:2020 01:28 P Job Number: [id number] Document Number: [id number] Normal [facility] POCT Glucoseon 2020 Glucose [Mass/Vol] 109 mg/dL High 70 - 100 mg/dL [facility] Work Phone: Comment on above: Test performed by gl ucose meter. Results may be 10%-15% lower than serum/plasma values. (CLIA ID [id number]) Interpretation and review of laboratory results Abnormal [facility] Work Phone: Test Performed by [facility], [address] [place], [place] [id number] [place] [address] Work Phone: Glucose [Mass/Vol] 101 mg/dL High 70 - 100 mg/dL [facility] Work Phone: Comment on above: Test performed by gl ucose meter. Results may be 10%-15% lower than serum/plasma values. (CLIA ID [id number]) Interpretation and review of laboratory results Abnormal [facility] Work Phone: Test Performed by [facility], [address] [place] [address] [facility] Work Phone: Potassiumon 2020 Potassium [Moles/Vol] 4.6 mmol/L Normal 3.5-5.1 [facility] Comment on above: Performed By: #### K 3 #### [facility] [address] [place] [address] Potassium [Moles/Vol] 4.6 mmol/L 3.5 - 5.1 mmol/L [facility] Work Phone: Test Performed by [facility], [address] [place] [address] [facility] Work Phone: Basic Metabolic Panelon 10-25 Anion gap [Moles/Vol] 7 mmol/L Normal 3-13 [facility] Comment on above: Performed By: #### B MP3, HEMOG #### [facility] [address] [place] [address] Calcium [Mass/Vol] 8.9 mg/dL Normal 8.4-10.4 [facility] Comment on above: Performed By: #### B MP3, HEMOG #### [facility] [address] [place] [address] CO2 [Moles/Vol] 32 mmol/L High 22-30 [facility] Comment on above: Performed By: #### B MP3, HEMOG #### [facility] [address] [place] [address] Glucose [Mass/Vol] 91 mg/dL Normal 70-100 [facility] Comment on above: Performed By: #### B MP3, HEMOG #### [facility] [address] [place] [address] Urea nitrogen [Mass/Vol] 32 mg/dL High 7-20 [facility] Comment on above: Performed By: #### B MP3, HEMOG #### [facility] [address] [place] [address] Creatinine [Mass/Vol] 2.84 mg/dL High 0.52-1.25 [facility] Comment on above: Performed By: #### B MP3, HEMOG #### [facility] [address] [place] [address] GFR/1.73 sq M.predicted among blacks MDRD (S/P/Bld) [Vol rate/Area] 26.2 mL/min/{1.73_m2} Abnormal >60 [facility] Comment on above: Performed By: #### B MP3, HEMOG #### [facility] [address] [place] [address] GFR/1.73 sq M.predicted among non-blacks MDRD (S/P/Bld) [Vol rate/Area] 22.6 mL/min/{1.73_m2} Abnormal >60 [facility] Comment on above: Result Comment: KDIG O [...] Performed By: #### B MP3, HEMOG #### [facility] [address] [place] [address] Potassium [Moles/Vol] 4.1 mmol/L Normal 3.5-5.1 [facility] Comment on above: Performed By: #### B MP3, HEMOG #### [facility] [address] [place] [address] Sodium [Moles/Vol] 137 mmol/L Normal 135-145 [facility] Comment on above: Performed By: #### B MP3, HEMOG #### [facility] [address] [place] [address] Chloride [Moles/Vol] 99 mmol/L Normal 98-107 [facility] Comment on above: Performed By: #### B MP3, HEMOG #### [facility] [address] [place] [address] Anion gap [Moles/Vol] 7 mmol/L 3 - 13 mmol/L [facility] Work Phone: Calcium [Mass/Vol] 8.9 mg/dL 8.4 - 10. 4 mg/dL [facility] Work Phone: Chloride [Moles/Vol] 99 mmol/L 98 - 10 7 mmol/L [facility] Work Phone: CO2 [Moles/Vol] 32 mmol/L High 22 - 30 mmol/L [facility] Work Phone: Creatinine [Mass/Vol] 2.84 mg/dL High 0.52 - 1.25 mg/dL [facility] Work Phone: EGFR IF NonAfrican [place]olan 22.6 mL/min Abnormal >60 [facility] Work Phone: Comment on above: KDIGO guidelines [...] Interpretation and review of laboratory results Abnormal [facility] Work Phone: Potassium [Moles/Vol] 4.1 mmol/L 3.5 - 5.1 mmol/L [facility] Work Phone: Sodium [Moles/Vol] 137 mmol/L 135 - 145 mmol/L [facility] Work Phone: Urea nitrogen [Mass/Vol] 32 mg/dL High 7 - 20 mg/dL [facility] Work Phone: Test Performed by [facility], [address] [place] [address] [facility] Work Phone: CBCon 11-03-2020 Erythrocyte distribution width (RBC) [Ratio] 19.8 % High 11.5 - 14.5 % [facility] Work Phone: Hematocrit (Bld) [Volume fraction] 32.8 % Low 40.0 - 52.0 % [facility] Work Phone: Hemoglobin (Bld) [Mass/Vol] 10.8 g/dL Low 13.0 - 18.0 g/dL [facility] Work Phone: Interpretation and review of laboratory results Abnormal [facility] Work Phone: MCH (RBC) [Entitic mass] 30.0 [...] [#/Vol] 164 10*3/uL 140 - 440 10*3/uL [facility] Work Phone: RBC (Bld) [#/Vol] 3.59 10*6/uL Low 4.40 - 5.9 0 10*6/uL [facility] Work Phone: WBC (Bld) [#/Vol] 5.7 10*3/uL 3.6 - 10.7 10*3/uL [employer] Work Phone: Test Performed by [facility], [address] [place] [address] [facility] Work Phone: Hemogramon 11-03-2020 Erythrocyte distribution width (RBC) [Ratio] 19.8 % High 11.5-14.5 [facility] Comment on above: Performed By: #### B MP3, HEMOG #### [facility] [address] [place] [address] Hematocrit (Bld) [Volume fraction] 32.8 % Low 40.0-52.0 [facility] Comment on above: Performed By: #### B MP3, HEMOG #### [facility] [address] [place] [address] Hemoglobin (Bld) [Mass/Vol] 10.8 g/dL Low 13.0-18.0 [facility] Comment on above: Performed By: #### B MP3, HEMOG #### [facility] [address] [place] [address] MCH (RBC) [Entitic mass] 30.0 pg Normal 26.0-34.0 [facility] Comment on above: Performed By: #### B MP3, HEMOG #### [facility] [address] [place] [address] MCHC 32.9 % Normal 32.0-36.0 [facility] Comment on above: Performed By: #### B MP3, HEMOG #### [facility] [address] [place] [address] MCV (RBC) [Entitic vol] 91.3 fL Normal 80.0-98.0 [facility] Comment on above: Performed By: #### B MP3, HEMOG #### [facility] [address] [place] [address] Platelet mean volume (Bld) [Entitic vol] 8.0 fL Normal 7.4-10.4 [facility] Comment on above: Performed By: #### B MP3, HEMOG #### [facility] [address] [place] [address] Platelets (Bld) [#/Vol] 164 10*3/uL Normal 140-440 [facility] Comment on above: Performed By: #### B MP3, HEMOG #### [facility] [address] [place] [address] RBC (Bld) [#/Vol] 3.59 10*6/uL Low 4.40-5.90 [facility] Comment on above: Performed By: #### B MP3, HEMOG #### [facility] [address] [place] [address] WBC (Bld) [#/Vol] 5.7 10*3/uL Normal 3.6-10.7 [facility] Comment on above: Performed By: #### B MP3, HEMOG #### [facility] [address] [place] [address] Protein Electrophoresis, Uri ne Randomon 04-08-2019 Protein (U) [Mass/Vol] SEE BELOW Normal [facility] Comment on above: Result Comment: Prot ein [...] SEE BELOW Reviewed by Floyd Porter MD ([id number]) Performing Laboratory: [facility] [address] [place] [address] Performed By: #### G LMET #### [address] [address] Basic Panelon 04-07-2019 Creatinine [Mass/Vol] 2.14 mg/dL High 0.67-1.17 [facility] Comment on above: Performed By: #### U RIN2 #### [facility] [address] [place] [address] Anion gap [Moles/Vol] 11 mmol/L Normal 8-16 [facility] Comment on above: Performed By: #### U RIN2 #### [facility] [address] [place], [place] [address] CO2 [Moles/Vol] 26 mmol/L Normal 21-32 [facility] Comment on above: Performed By: #### U RIN2 #### [facility] [address] [place] [address] Glucose [Mass/Vol] 97 mg/dL Normal 70-99 [facility] Comment on above: Performed By: #### U RIN2 #### [facility] [address] [place] [address] Urea nitrogen [Mass/Vol] 65 mg/dL High 7-18 [facility] Comment on above: Performed By: #### U RIN2 #### [facility] [address] [place], [place] [address] Calcium [Mass/Vol] 7.9 mg/dL Low 8.5-10.1 [facility] Comment on above: Performed By: #### U RIN2 #### [facility] [address] [place], [place] [address] Chloride [Moles/Vol] 102 mmol/L Normal 98-107 [facility] Comment on above: Performed By: #### U RIN2 #### [facility] [address] [place], [place] [address] Potassium [Moles/Vol] 4.8 mmol/L Normal 3.5-5.1 [facility] Comment on above: Performed By: #### U RIN2 #### [facility] [address] [place] [address] Sodium [Moles/Vol] 134 mmol/L Low 136-145 [facility] Comment on above: Performed By: #### U RIN2 #### [facility] [address] [place] [id number] CASE MANAGEMon 04-07-2019 CASE MANAGEM HNO ID: [id number] Author: Jocelin (Rn) BISMARK Pagan Service: Care [...] 07, 2019 TIME: 4:08 PM PAGER/CONTACT #: [phone] Normal [facility] CONSULT PROGon 04-07-2019 CONSULT PROG HNO ID: [id number] Author: Mohsen Castellanos Service: Infectious Disease Author [...] We will sign off. Mohsen Castellanos MD [facility] CONSULT PROG HNO ID: [id number] Author: Kiera Gonzalez Service: Endocrinology Author Type: [...] management seeing pt GARRET (acute kidney injury) ([facility]) POA: Yes Assessment AND Plan: creat sl up again, 2.14(2.32)(2.55)(2.32)(2.3 7)(2.1)(1.92)(1.81)(1.70)( 1.77)(1.86)(2.09)(2.33) (2.47); baseline 1.54; per renal CKD (chronic kidney disease) stage 3, GFR 30-59 ml/min ([facility]) POA: Yes Assessment AND Plan: creat 1.54 in 07/2018 Arteriosclerotic heart disease (ASHD) POA: Yes Assessment AND Plan: hx Hypertension, essential POA: Yes Assessment AND Plan: per caprice UTI (urinary tract infection) POA: Unknown Assessment AND Plan: on A/B Chronic combined systolic and diastolic CHF (congestive heart failure) ([facility]) POA: Yes Assessment AND Plan: hx SIGNATURE: Kiera Gonzalez MD PATIENT NAME: Mauri Quinones DATE: April 07, 2019 TIME: 8:10 AM PAGER: [phone] Normal [facility] Glucose Meteron 04-07-2019 Glucose [Mass/Vol] 99 mg/dL Normal 70-99 [facility] Comment on above: Result Comment: BISMARK Cruz OTIFIED Performed By: #### G LMET #### [place] [address] MDRD GFRon 04-07-2019 GFR/1.73 sq M predicted among non-blacks MDRD (S/P/Bld) [Vol rate/Area] 31.53 mL/min/{1.73_m2} Normal >60mL/min/1. 73m2 [facility] Comment on above: Result Comment: If t he patient is , multiply the result by 1.210. 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 Orders Placed This [...] 0659 04/07/19 0700 - 04/08/19 0659 Shift 5204-8662 7752-3636 0809-1206 24 Hour Total 6436-3776 8004-2986 5178-2508 24 Hour Total INTAKE PO 480 480 PO 480 480 Shift Total 480 480 OUTPUT Urine 860 796 0949 Void (ml) 308 889 1585 Urine Not Saved. 2 x 2 x # of BMs Number of BMs 2 x 1 x 3 x Shift Total 501 969 0306 Weight (kg) 91.4 91.4 90.3 90.3 90.3 90.3 90.3 90.3 Vitamin and Mineral Labs in the past year: Recent Labs 03/24/19 1019 04/17/18 1609 B12 1,687* -- TIBC -- 312 FE -- 77 BOBY -- 142.0 MNT Billing Type: Re-assess/15 min 2 units SIGNATURE: Elizabeth Madrid RD,LD PATIENT NAME: Mauri Quinones DATE: April 07, 2019 TIME: 9:48 AM PAGER: [phone] [facility] PLAN OF CAREon 04-07-2019 PLAN OF CARE HNO ID: [id number] Author: Monica Wade (Pharmacist) Service: Pharmacy Author [...] Medications These medications were sent to e- [facility]/pharmacy #[id number] [place] [address] - [address] [facility] - [phone] [address] [facility] [address] ? amoxicillin-clavulanic acid 500-125 mg per tablet ? gabapentin 100 mg capsule ? hydrALAZINE 50 mg tablet ? insulin lispro 100 unit/mL Inpn [facility] PLAN OF CARE HNO ID: [id number] Author: Monica Wade (Pharmacist) Service: Pharmacy Author [...] Prescriptions sent electronically to patient's home pharmacy, [facility]. Will document education note separately. MONICA WADE PHARMACIST April 07, 2019 3:36 PM EXT: [id number] 04/07/2019 3:36 PM Medication List START taking [...] Medications These medications were sent to e- [facility]/pharmacy #[id number] [place] [address] - [address] [facility] [phone] [address] [address] [facility] [address] ? amoxicillin-clavulanic acid 500-125 mg per tablet ? gabapentin 100 mg capsule ? hydrALAZINE 50 mg tablet ? 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 Mcfadden to reorder spep light chains and f/u on upep Continue phoslo monitor phos bp ok monitor Avoid nephrotoxins D/w patient and family at bedside and dr. Marcial. Chart reviewed. 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 Mcfadden to reorder spep light chains and f/u on upep Continue phoslo monitor phos bp ok monitor Avoid nephrotoxins D/w patient and family at bedside Chart reviewed. SIGNATURE: Bravo Mueller MD PATIENT NAME: Mauri Quinones PAGER: [phone] [facility] THERAPY NTon 04-07-2019 THERAPY NT HNO ID: [id number] Author: Isabela (Pt) Flori Service: Physical Therapy Author Type: Physical Therapist Type: Therapy (PT/OT/Speech/Resp) Filed: 04/07/2019 9:53 AM Note Text: Physical Therapy Treatment SERVICE DATE: 04/07/2019 SERVICE TIME: 50 to 14 ROOM: [id number] Recommended Discharge Disposition: Acute Rehab Recommended Discharge [...] Patient;Family TREATMENT INTERVENTIONS: Interventions Provided: Therapeutic Exercise (87157);Therapeutic Activity (02637) Therapeutic Exercise (80474) Treatment Minutes: 8 1 unit Skilled Intervention(s): pt completed seated hip flexion bilat x 10, long arc quads bilat x 10, and ankle pumps bilat x 10 Therapeutic Activity (06173) Treatment Minutes: 16 1 unit Skilled Intervention(s): [...] April 07, 2019 TIME: 9:53 AM Normal [facility] Basic Panelon 04-06-2019 Creatinine [Mass/Vol] 2.32 mg/dL High 0.67-1.17 [facility] Comment on above: Performed By: #### U RIN2 #### [facility] [address] [place], [place] [address] Anion gap [Moles/Vol] 12 mmol/L Normal 8-16 [facility] Comment on above: Performed By: #### U RIN2 #### [facility] [address] [place], [place] [address] CO2 [Moles/Vol] 26 mmol/L Normal 21-32 [facility] Comment on above: Performed By: #### U RIN2 #### [address] [address] Glucose [Mass/Vol] 72 mg/dL Normal 70-99 [facility] Comment on above: Performed By: #### U RIN2 #### [address] [address] Urea nitrogen [Mass/Vol] 72 mg/dL High 7-18 [facility] Comment on above: Performed By: #### U RIN2 #### [address] [address] Calcium [Mass/Vol] 7.8 mg/dL Low 8.5-10.1 [facility] Comment on above: Performed By: #### U RIN2 #### [facility] [address] [place], [place] [address] Chloride [Moles/Vol] 101 mmol/L Normal 98-107 [facility] Comment on above: Performed By: #### U RIN2 #### [facility] [address] [place], [place] [address] Potassium [Moles/Vol] 4.9 mmol/L Normal 3.5-5.1 [facility] Comment on above: Performed By: #### U RIN2 #### [facility] [address] [place], [place] [address] Sodium [Moles/Vol] 134 mmol/L Low 136-145 [facility] Comment on above: Performed By: #### U RIN2 #### [facility] [address] [place], [place] [address] CONSULT PROGon 04-06-2019 CONSULT PROG HNO ID: [id number] Author: Kiera Gonzalez Service: Endocrinology Author Type: [...] kidney disease) stage 3, GFR 30-59 ml/min ([facility]) POA: Yes Assessment AND Plan: creat 1.54 in 07/2018 Arteriosclerotic heart disease (ASHD) POA: Yes Assessment AND Plan: hx Hypertension, essential POA: Yes Assessment AND Plan: per caprice UTI (urinary tract infection) POA: Unknown Assessment AND Plan: on A/B Chronic combined systolic and diastolic CHF (congestive heart failure) ([facility]) POA: Yes Assessment AND Plan: hx SIGNATURE: Kiera Gonzalez MD PATIENT NAME: Mauri Quinones DATE: April 06, 2019 TIME: 8:55 AM PAGER: [phone] [facility] PROGRESSon 04-06-2019 PROGRESS HNO ID: [id number] Author: Bravo Lamb) Ervin Service: Nephrology Author [...] 7.324 (L) 7.350 - 7.450 Final Specific [place], [place] Date Value Ref Range Status 03/23/2019 [...] collection 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 SIGNATURE: Bravo Mueller MD PATIENT NAME: Mauri Quinones PAGER: [phone] [facility] PROGRESS HNO ID: [id number] Author: Ortega Timmons Service: Hospital Medicine Author Type: Physician Type: Progress Notes Filed: 04/06/2019 9:44 AM Note Text: DEPARTMENT OF HOSPITAL MEDICINE PROGRESS NOTE SERVICE DATE: 04/06/2019 SERVICE TIME: 9:00 AM Hospital Medicine/Primary Attending: Ortega Timmons MD NIGHT AND WEEKEND COVERAGE: From 7am - 7pm, please call [phone] After 7pm, please call cross cover pager #[phone] Subjective INTERVAL HPI: 63yo M admitted for [...] -- 03/24/19 0945 activity - mobilize patient ([place]) 03/24/19 0245 pneumatic compression stockings ([place]) 03/24/19 0245 activity - mobilize patient ([place]) VTE Prophylaxis: VTE prophylaxis appropriate Disposition: Inpatient awaiting precert Plan of care discussed with: Patient SIGNATURE: Ortega Timmons MD PATIENT NAME: Mauri Quinones DATE: April 06, 2019 TIME: 9:00 AM PAGER/CONTACT #: [phone] etx [phone] Normal [facility] Basic Panelon 04-05-2019 Creatinine [Mass/Vol] 2.55 mg/dL High 0.67-1.17 [facility] Comment on above: Performed By: #### U RIN2 #### [address] [address] Anion gap [Moles/Vol] 11 mmol/L Normal 8-16 [facility] Comment on above: Performed By: #### U RIN2 #### [address] [address] CO2 [Moles/Vol] 26 mmol/L Normal 21-32 [facility] Comment on above: Performed By: #### U RIN2 #### [address] [address] Glucose [Mass/Vol] 77 mg/dL Normal 70-99 [facility] Comment on above: Performed By: #### U RIN2 #### [address] [address] Urea nitrogen [Mass/Vol] 77 mg/dL High 7-18 [facility] Comment on above: Performed By: #### U RIN2 #### [address] [address] Calcium [Mass/Vol] 7.7 mg/dL Low 8.5-10.1 [facility] Comment on above: Performed By: #### U RIN2 #### [address], [place] [address] Chloride [Moles/Vol] 99 mmol/L Normal 98-107 [facility] Comment on above: Performed By: #### U RIN2 #### [facility] [address] [place], [place] [address] Potassium [Moles/Vol] 4.9 mmol/L Normal 3.5-5.1 [facility] Comment on above: Performed By: #### U RIN2 #### [facility] [address] [place], [place] [address] Sodium [Moles/Vol] 131 mmol/L Low 136-145 [facility] Comment on above: Performed By: #### U RIN2 #### [facility] [address] [place], [place] [address] CONSULT PROGon 04-05-2019 CONSULT PROG HNO ID: [id number] Author: Kiera Gonzalez Service: Endocrinology Author Type: Physician Type: Consult Progress Note Filed: 04/05/2019 8:54 AM Note Text: ENDOCRINOLOGY CONSULT PROGRESS NOTE SERVICE DATE: 04/05/2019 SERVICE TIME: 9:35 AM Subjective INTERVAL HPI: Following for DM type 2. Adm with severe neck and B/L shoulder pain. Has GARERT. Notes and orders reviewed. Pt had erratic [...] management seeing pt GARRET (acute kidney injury) ([facility]) POA: Yes Assessment AND Plan: creat sl up again, 2.55(2.32)(2.37)(2.1)(1.92 )(1.81)(1.70)(1.77)(1.86)( 2.09)(2.33)(2.47); baseline 1.54; per renal CKD (chronic kidney disease) stage 3, GFR 30-59 ml/min ([facility]) POA: Yes Assessment AND Plan: creat 1.54 in 07/2018 Arteriosclerotic heart disease (ASHD) POA: Yes Assessment AND Plan: hx Hypertension, essential POA: Yes Assessment AND Plan: per caprice UTI (urinary tract infection) POA: Unknown Assessment AND Plan: on A/B Chronic combined systolic and diastolic CHF (congestive heart failure) ([facility]) POA: Yes Assessment AND Plan: hx SIGNATURE: Kiera Gonzalez MD PATIENT NAME: Mauri Quinones DATE: April 05, 2019 TIME: 9:48 AM PAGER: [phone] Normal [facility] Creatinine 24Hr Uron 019 Creatinine [Mass/Vol] 0.3 g/24 hrs Low 0.9-2.4 A [facility] Comment on above: Performed By: #### U RIN2 #### [facility] [address] [place] [address] Total Volume 542 mL Low 4849-6178 [facility] Comment on above: Performed By: #### U RIN2 #### [facility] [address] [place] [id number] Hemogram/Diffon 04-05-2019 Abs Immature Grans 0.16 thou/cmm High 0.00-0.05 [facility] Comment on above: Performed By: #### U RIN2 #### [facility] [address] [place] [address] Abs Neut (ANC) 9.12 thou/cmm High 1.78-5.38 [facility] Comment on above: Performed By: #### U RIN2 #### [facility] [address] [place] [address] Abs. Baso 0.07 thou/cmm Normal 0.01-0.08 [facility] Comment on above: Performed By: #### U RIN2 #### [facility] [address] [place] [address] Abs. Kemper 1.40 thou/cmm High 0.30-0.82 [facility] Comment on above: Performed By: #### U RIN2 #### [facility] [address] [place] [address] Basophils/100 WBC (Bld) 0.6 % Normal [facility] Comment on above: Performed By: #### U RIN2 #### [facility] [address] [place] [address] Eosinophils (Bld) [#/Vol] 0.43 thou/cmm Normal 0.04-0.54 [facility] Comment on above: Performed By: #### U RIN2 #### [facility] [address] [place] [address] Eosinophils/100 WBC (Bld) 3.5 % Normal [facility] Comment on above: Performed By: #### U RIN2 #### [facility] [address] [place] [address] Erythrocyte distribution width (RBC) [Ratio] 13.6 % Normal 11.6-14.4 [facility] Comment on above: Performed By: #### U RIN2 #### [place] [address] Hematocrit (Bld) [Volume fraction] 25.4 % Low 40.1-51.0 [facility] Comment on above: Performed By: #### U RIN2 #### [place] [address] Hemoglobin (Bld) [Mass/Vol] 8.1 g/dL Low 13.7-17.5 [facility] Comment on above: Performed By: #### U RIN2 #### [facility] [address] [place], [place] [address] Immature Grans 1.30 % Normal [facility] Comment on above: Performed By: #### U RIN2 #### [facility] [address] [place], [place] [address] Lymphocytes (Bld) [#/Vol] 1.03 thou/cmm Normal 0.84-2.85 [facility] Comment on above: Performed By: #### U RIN2 #### [facility] [address] [place], [place] [address] Lymphocytes/100 WBC (Bld) 8.4 % Normal [facility] Comment on above: Performed By: #### U RIN2 #### [facility] [address] [place], [place] [address] MCH (RBC) [Entitic mass] 29.6 pg Normal 25.7-32.2 [facility] Comment on above: Performed By: #### U RIN2 #### [facility] [address] [place], [place] [address] MCHC (RBC) [Mass/Vol] 31.9 % Low 32.3-36.5 [facility] Comment on above: Performed By: #### U RIN2 #### [facility] [address] [place], [place] [address] MCV (RBC) [Entitic vol] 92.7 fL Normal 83.2-95.6 [facility] Comment on above: Performed By: #### U RIN2 #### [facility] [address] [place], [place] [address] Monocytes/100 WBC (Bld) 11.5 % Normal [facility] Comment on above: Performed By: #### U RIN2 #### [facility] [address] [place], [place] [address] Platelet mean volume (Bld) [Entitic vol] 9.3 fL Normal 8.7-12.0 [facility] Comment on above: Performed By: #### U RIN2 #### [facility] [address] [place], [place] [address] Platelets (Bld) [#/Vol] 318 thou/cmm Normal 141-365 [facility] Comment on above: Performed By: #### U RIN2 #### [facility] [address] [place], [place] [address] RBC (Bld) [#/Vol] 2.74 mil/cmm Low 4.63-6.08 [facility] Comment on above: Performed By: #### U RIN2 #### [facility] [address] [place], [place] [address] RDW SD 46.2 fl High 36.1-45.8 [facility] Comment on above: Performed By: #### U RIN2 #### [facility] [address] [place] [address] Seg Neutrophil 74.7 % Normal [facility] Comment on above: Performed By: #### U RIN2 #### [facility] [address] [place], [place] [address] WBC (Bld) [#/Vol] 12.21 thou/cmm High 4.23-9.07 [facility] Comment on above: Performed By: #### U RIN2 #### [facility] [address] [place] [address] PROGRESSon 04-05-2019 PROGRESS HNO ID: [id number] Author: Bravo Mueller Service: Nephrology Author Type: [...] 7.324 (L) 7.350 - 7.450 Final Specific [place], [place] Date Value Ref Range Status 03/23/2019 [...] collection 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 SIGNATURE: Bravo Mueller MD PATIENT NAME: Mauri Quinones PAGER: [phone] [facility] PROGRESS HNO ID: [id number] Author: Ortega Timmons Service: Hospital Medicine Author Type: Physician Type: Progress Notes Filed: 04/05/2019 2:07 PM Note Text: DEPARTMENT OF HOSPITAL MEDICINE PROGRESS NOTE SERVICE DATE: 04/05/2019 SERVICE TIME: 2:01 PM Hospital Medicine/Primary Attending: Ortega Timmons MD NIGHT AND WEEKEND COVERAGE: From 7am - 7pm, please call [phone] After 7pm, please call cross cover pager [phone] Subjective INTERVAL HPI: 63yo M admitted for [...] -- 03/24/19 0945 activity - mobilize patient ([place]) 03/24/19 0245 pneumatic compression stockings ([place] 03/24/19 0245 activity - mobilize patient ([place] VTE Prophylaxis: VTE prophylaxis appropriate Disposition: Inpatient Plan of care discussed with: Patient SIGNATURE: Ortega Timmons MD PATIENT NAME: Mauri Quinones DATE: April 05, 2019 TIME: 2:01 PM PAGER/CONTACT #: [phone] Normal [facility] Protein 24Hr Uron 04-05-2019 Protein [Mass/Vol] 1703.0 mg/24 hrs High 0.0-149.0 [facility] Comment on above: Performed By: #### U RIN2 #### [place] [address] Basic Panelon 04-04-2019 Creatinine [Mass/Vol] 2.32 mg/dL High 0.67-1.17 [facility] Comment on above: Performed By: #### U RIN2 #### [place] [address] Anion gap [Moles/Vol] 14 mmol/L Normal 8-16 [facility] Comment on above: Performed By: #### U RIN2 #### [address] [address] CO2 [Moles/Vol] 24 mmol/L Normal 21-32 [facility] Comment on above: Performed By: #### U RIN2 #### [place] [address] Glucose [Mass/Vol] 111 mg/dL High 70-99 [facility] Comment on above: Performed By: #### U RIN2 #### [facility] [address] [place] [address] Urea nitrogen [Mass/Vol] 78 mg/dL High 7-18 [facility] Comment on above: Performed By: #### U RIN2 #### [facility] [address] [place] [address] Calcium [Mass/Vol] 7.4 mg/dL Low 8.5-10.1 [facility] Comment on above: Performed By: #### U RIN2 #### [facility] [address] [place] [address] Chloride [Moles/Vol] 102 mmol/L Normal 98-107 [facility] Comment on above: Performed By: #### U RIN2 #### [facility] [address] [place] [address] Potassium [Moles/Vol] 4.5 mmol/L Normal 3.5-5.1 [facility] Comment on above: Performed By: #### U RIN2 #### [facility] [address] [place] [address] Sodium [Moles/Vol] 135 mmol/L Low 136-145 [facility] Comment on above: Performed By: #### U RIN2 #### [facility] [address] [place] [address] CASE MANAGEMon 04-04-2019 CASE MANAGEM HNO ID: [id number] Author: Jocelin Guzman) BISMARK Pagan Service: Care [...] 04, 2019 TIME: 1:05 PM PAGER/CONTACT #: [phone] Normal [facility] CONSULT PROGon 04-04-2019 CONSULT PROG HNO ID: [id number] Author: Mohsen Castellanos Service: Infectious Disease Author [...] D/W pt and . Mohsen Castellanos MD [facility] CONSULT PROG HNO ID: [id number] Author: Kiera Gonzalez Service: Endocrinology Author Type: [...] 3 g in NaCl 0.9% 100 mL MB+/ADD-Eidson (UNASYN) 3 g INTRAVENOUS q 8 H [...] complication, with long-term current use of insulin ([facility]) POA: Yes Assessment AND Plan: 12-15 ears [...] management seeing pt GARRET (acute kidney injury) ([facility]) POA: Yes Assessment AND Plan: creat sl up again, 2.32(2.37)(2.1)(1.92)(1.81 )(1.70)(1.77)(1.86)(2.09)( 2.33)(2.47); baseline 1.54; per renal CKD (chronic kidney disease) stage 3, GFR 30-59 ml/min ([facility]) POA: Yes Assessment AND Plan: creat 1.54 in 07/2018 Arteriosclerotic heart disease (ASHD) POA: Yes Assessment AND Plan: hx Hypertension, essential POA: Yes Assessment AND Plan: per caprice UTI (urinary tract infection) POA: Unknown Assessment AND Plan: on A/B Chronic combined systolic and diastolic CHF (congestive heart failure) ([facility]) POA: Yes Assessment AND Plan: hx SIGNATURE: Kiera Gonzalez MD PATIENT NAME: Mauri Quinones DATE: April 04, 2019 TIME: 9:48 AM PAGER: [phone] Normal [facility] Hemogram/Diffon 04-04-2019 Abs Immature Grans 0.20 thou/cmm High 0.00-0.05 [facility] Comment on above: Performed By: #### U RIN2 #### [facility] [address] [place] [address] Abs Neut (ANC) 10.53 thou/cmm High 1.78-5.38 [facility] Comment on above: Performed By: #### U RIN2 #### [facility] [address] [place] [address] Abs. Baso 0.05 thou/cmm Normal 0.01-0.08 [facility] Comment on above: Performed By: #### U RIN2 #### [place] [address] Abs. Kemper 1.34 thou/cmm High 0.30-0.82 [facility] Comment on above: Performed By: #### U RIN2 #### [place] [address] Basophils/100 WBC (Bld) 0.4 % Normal [facility] Comment on above: Performed By: #### U RIN2 #### [place] [address] Eosinophils (Bld) [#/Vol] 0.43 thou/cmm Normal 0.04-0.54 [facility] Comment on above: Performed By: #### U RIN2 #### [place] [address] Eosinophils/100 WBC (Bld) 3.2 % Normal [facility] Comment on above: Performed By: #### U RIN2 #### [place] [address] Immature Grans 1.50 % Normal [facility] Comment on above: Performed By: #### U RIN2 #### [place] [address] Lymphocytes (Bld) [#/Vol] 0.95 thou/cmm Normal 0.84-2.85 [facility] Comment on above: Performed By: #### U RIN2 #### [facility] [address] [place], [place] [address] Lymphocytes/100 WBC (Bld) 7.0 % Normal [facility] Comment on above: Performed By: #### U RIN2 #### [facility] [address] [place] [id number] Monocytes/100 WBC (Bld) 9.9 % Normal [facility] Comment on above: Performed By: #### U RIN2 #### [facility] [address] [place] [address] Seg Neutrophil 78.0 % Normal [facility] Comment on above: Performed By: #### U RIN2 #### [facility] [address] [place] [address] Erythrocyte distribution width (RBC) [Ratio] 13.6 % Normal 11.6-14.4 [facility] Comment on above: Performed By: #### U RIN2 #### [facility] [address] [place] [address] Hematocrit (Bld) [Volume fraction] 27.4 % Low 40.1-51.0 [facility] Comment on above: Performed By: #### U RIN2 #### [facility] [address] [place] [address] Hemoglobin (Bld) [Mass/Vol] 8.6 g/dL Low 13.7-17.5 [facility] Comment on above: Performed By: #### U RIN2 #### [facility] [address] [place] [address] MCH (RBC) [Entitic mass] 29.4 pg Normal 25.7-32.2 [facility] Comment on above: Performed By: #### U RIN2 #### [facility] [address] [place] [address] MCHC (RBC) [Mass/Vol] 31.4 % Low 32.3-36.5 [facility] Comment on above: Performed By: #### U RIN2 #### [facility] [address] [place] [address] MCV (RBC) [Entitic vol] 93.5 fL Normal 83.2-95.6 [facility] Comment on above: Performed By: #### U RIN2 #### [facility] [address] [place], [place] [address] Platelet mean volume (Bld) [Entitic vol] 9.3 fL Normal 8.7-12.0 [facility] Comment on above: Performed By: #### U RIN2 #### [facility] [address] [place], [place] [address] Platelets (Bld) [#/Vol] 316 thou/cmm Normal 141-365 [facility] Comment on above: Performed By: #### U RIN2 #### [facility] [address] [place], [place] [address] RBC (Bld) [#/Vol] 2.93 mil/cmm Low 4.63-6.08 [facility] Comment on above: Performed By: #### U RIN2 #### [facility] [address] [place] [address] RDW SD 46.5 fl High 36.1-45.8 [facility] Comment on above: Performed By: #### U RIN2 #### [facility] [address] [place], [place] [address] WBC (Bld) [#/Vol] 13.50 thou/cmm High 4.23-9.07 [facility] Comment on above: Performed By: #### U RIN2 #### [place] [address] NURSING PROGon 04-04-2019 NURSING PROG HNO ID: [id number] Author: Vandana (Rn) BISMARK Stephen Service: ? Author Type: Registered Nurse Type: Nursing Progress Note Filed: 04/04/2019 4:41 PM Note Text: Nursing Progress Note Patient Name: Mauri Quinones Patient Location: [id number] Daily Note: pt up walking the key with walker, to the nurses station, steady on feet with no complaints at this time, pt returned to the room at bedside. 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 SIGNATURE: Bravo Mueller MD PATIENT NAME: Mauri Quinones PAGER: [phone] Normal [facility] PROGRESS HNO ID: [id number] Author: Jose Marcial Service: Hospital Medicine Author Type: Physician Type: Progress Notes Filed: 04/04/2019 6:39 PM Note Text: DEPARTMENT OF HOSPITAL MEDICINE PROGRESS NOTE SERVICE DATE: 04/04/2019 SERVICE TIME: 10:34 AM Hospital Medicine/Primary Attending: Jose Marcial, DO NIGHT AND WEEKEND COVERAGE: From 7am - 7pm, please call [place] After 7pm, please call cross cover pager #[phone] Subjective INTERVAL HPI: Patient seen and examined. No new complaints. Requesting to be discharged home if no facility available. MEDICATIONS: Reviewed Objective PHYSICAL EXAM: BP 164/74 Pulse 71 Temp (Src) 98.6 (Oral) Resp 18 Ht 5' 10 (1.78m) Wt 199 lb (90.3kg) SpO2 94% BMI 28.55 kg/(m2). O2 Therapy: Room Air Physical Exam Performed General: Alert, NAD, cooperative CV: RRR, +[id number], no murmur Resp: CTA b/l, no wheeze [...] -- 03/24/19 0945 activity - mobilize patient ([place]) 03/24/19 0245 pneumatic compression stockings ([place]) 03/24/19 0245 activity - mobilize patient ([place]) VTE Prophylaxis: VTE prophylaxis appropriate Disposition: SNF vs Home with HHC. Await pt/familyd decision. Stable for discharge. Plan of care discussed with: Patient, Care Management and RN SIGNATURE: Jose Marcial DO PATIENT NAME: Mauri Quinones DATE: April 04, 2019 TIME: 6:34 PM PAGER/CONTACT #: Maureen Green Normal [facility] Basic Panelon 04-03-2019 Creatinine [Mass/Vol] 2.37 mg/dL High 0.67-1.17 [facility] Comment on above: Performed By: #### U RIN2 #### [address] [address] Anion gap [Moles/Vol] 13 mmol/L Normal 8-16 [facility] Comment on above: Performed By: #### U RIN2 #### [address] [address] CO2 [Moles/Vol] 25 mmol/L Normal 21-32 [facility] Comment on above: Performed By: #### U RIN2 #### [address] [address] Glucose [Mass/Vol] 87 mg/dL Normal 70-99 [facility] Comment on above: Performed By: #### U RIN2 #### [address] [address] Urea nitrogen [Mass/Vol] 78 mg/dL High 7-18 [facility] Comment on above: Performed By: #### U RIN2 #### [address] [address] Calcium [Mass/Vol] 8.1 mg/dL Low 8.5-10.1 [facility] Comment on above: Performed By: #### U RIN2 #### [facility] [address] [place] [address] Chloride [Moles/Vol] 99 mmol/L Normal 98-107 [facility] Comment on above: Performed By: #### U RIN2 #### [facility] [address] [place] [address] Potassium [Moles/Vol] 4.7 mmol/L Normal 3.5-5.1 [facility] Comment on above: Performed By: #### U RIN2 #### [facility] [address] [place] [address] Sodium [Moles/Vol] 132 mmol/L Low 136-145 [facility] Comment on above: Performed By: #### U RIN2 #### [facility] [address] [place] [address] CASE MANAGEMon 04-03-2019 CASE MANAGEM HNO ID: [id number] Author: Jocelin MarquezRn) BISMARK Pagan Service: Care [...] 03, 2019 TIME: 3:35 PM PAGER/CONTACT #: [phone] [facility] CASE MANAGEM HNO ID: [id number] Author: Jocelin Guzman) BISMARK Pagan Service: Care [...] 03, 2019 TIME: 12:07 PM PAGER/CONTACT #: [phone] [facility] CONSULTon 04-03-2019 CONSULT HNO ID: [id number] Author: Angel Weiner Service: Urology Author Type: [...] Diagnosis Date - GARRET (acute kidney injury) ([facility]) 03/24/2019 - Ankylosing spondylitis ([facility]) - CAD (coronary artery disease) - Cellulitis - Chronic combined systolic and diastolic CHF (congestive heart failure) ([facility]) 03/24/2019 - CKD (chronic kidney disease) stage 3, GFR 30-59 ml/min ([facility]) 03/24/2019 - Constipation - Diabetes ([facility]) - Gout - High phosphate levels 03/24/2019 - Hx of fracture multiple bones - Hyperkalemia 03/24/2019 - Hypoalbuminemia 03/24/2019 - Hyponatremia 03/24/2019 - Hypoxia 03/24/2019 - NSTEMI (non-ST elevated myocardial infarction) ([facility]) 03/12/2017 [facility] admit - Osteoarthritis PAST SURGICAL HISTORY: [...] 7.324 (L) 7.350 - 7.450 Final Specific [place], [place] Date Value Ref Range Status 03/23/2019 [...] in the resident's note. Angel Weiner MD [facility] CONSULT PROGon 04-03-2019 CONSULT PROG HNO ID: [id number] Author: Kiera Gonzalez Service: Endocrinology Author Type: [...] 3 g in NaCl 0.9% 100 mL MB+/ADD-Eidson (UNASYN) 3 g INTRAVENOUS q 8 H [...] complication, with long-term current use of insulin ([facility]) POA: Yes Assessment AND Plan: 12-15 ears [...] management seeing pt GARRET (acute kidney injury) ([facility]) POA: Yes Assessment AND Plan: creat up again, 2.37(2.1)(1.92)(1.81)(1.70 )(1.77)(1.86)(2.09)(2.33)( 2.47); baseline 1.54; per renal CKD (chronic kidney disease) stage 3, GFR 30-59 ml/min ([facility]) POA: Yes Assessment AND Plan: creat 1.54 [...] 2019 TIME: 8:49 AM PAGER: [phone] Normal [facility] Hemogram/Diffon 04-03-2019 Abs Immature Grans 0.24 thou/cmm High 0.00-0.05 [facility] Comment on above: Performed By: #### U RIN2 #### [address] [address] Abs Neut (ANC) 10.22 thou/cmm High 1.78-5.38 [facility] Comment on above: Performed By: #### U RIN2 #### [place] [address] Abs. Baso 0.05 thou/cmm Normal 0.01-0.08 [facility] Comment on above: Performed By: #### U RIN2 #### [place] [address] Abs. Kemper 1.40 thou/cmm High 0.30-0.82 [facility] Comment on above: Performed By: #### U RIN2 #### [address] [address] Basophils/100 WBC (Bld) 0.4 % Normal [facility] Comment on above: Performed By: #### U RIN2 #### [address] [address] Eosinophils (Bld) [#/Vol] 0.45 thou/cmm Normal 0.04-0.54 [facility] Comment on above: Performed By: #### U RIN2 #### [address] [address] Eosinophils/100 WBC (Bld) 3.4 % Normal [facility] Comment on above: Performed By: #### U RIN2 #### [place] [address] Immature Grans 1.80 % Normal [facility] Comment on above: Performed By: #### U RIN2 #### [facility] [address] [place], [place] [address] Lymphocytes (Bld) [#/Vol] 1.00 thou/cmm Normal 0.84-2.85 [facility] Comment on above: Performed By: #### U RIN2 #### [facility] [address] [place], [place] [address] Lymphocytes/100 WBC (Bld) 7.5 % Normal [facility] Comment on above: Performed By: #### U RIN2 #### [facility] [address] [place], [place] [address] Monocytes/100 WBC (Bld) 10.5 % Normal [facility] Comment on above: Performed By: #### U RIN2 #### [facility] [address] [place] [address] Seg Neutrophil 76.4 % Normal [facility] Comment on above: Performed By: #### U RIN2 #### [facility] [address] [place] [address] Erythrocyte distribution width (RBC) [Ratio] 13.6 % Normal 11.6-14.4 [facility] Comment on above: Performed By: #### U RIN2 #### [facility] [address] [place] [address] Hematocrit (Bld) [Volume fraction] 29.0 % Low 40.1-51.0 [facility] Comment on above: Performed By: #### U RIN2 #### [facility] [address] [place] [address] Hemoglobin (Bld) [Mass/Vol] 9.1 g/dL Low 13.7-17.5 [facility] Comment on above: Performed By: #### U RIN2 #### [facility] [address] [place] [address] MCH (RBC) [Entitic mass] 29.4 pg Normal 25.7-32.2 [facility] Comment on above: Performed By: #### U RIN2 #### [facility] [address] [place] [address] MCHC (RBC) [Mass/Vol] 31.4 % Low 32.3-36.5 [facility] Comment on above: Performed By: #### U RIN2 #### [facility] [address] [place] [address] MCV (RBC) [Entitic vol] 93.5 fL Normal 83.2-95.6 [facility] Comment on above: Performed By: #### U RIN2 #### [facility] [address] [place] [address] Platelet mean volume (Bld) [Entitic vol] 9.3 fL Normal 8.7-12.0 [facility] Comment on above: Performed By: #### U RIN2 #### [place] [address] Platelets (Bld) [#/Vol] 349 thou/cmm Normal 141-365 [facility] Comment on above: Performed By: #### U RIN2 #### [facility] [address] [place] [address] RBC (Bld) [#/Vol] 3.10 mil/cmm Low 4.63-6.08 [facility] Comment on above: Performed By: #### U RIN2 #### [facility] [address] [place] [address] RDW SD 46.3 fl High 36.1-45.8 [facility] Comment on above: Performed By: #### U RIN2 #### [place] [address] WBC (Bld) [#/Vol] 13.38 thou/cmm High 4.23-9.07 [facility] Comment on above: Performed By: #### U RIN2 #### [facility] [address] [place] [address] PROGRESSon 04-03-2019 PROGRESS HNO ID: [id number] Author: Jesus (Res) MD Juan Antonio Service: Urology Author Type: Resident Type: Progress Notes Filed: 04/03/2019 6:18 PM Note Text: - Patient voiding spontaneously today - PVR after unrecorded void was 0mL - No indication for butler catheter at this time - Urology will sign off Jesus Romano MD Urology, PGY-2 April 03, 2019 6:18 PM Pager: [phone] [facility] PROGRESS HNO ID: [id number] Author: Bravo Lamb) Ervin Service: Nephrology Author [...] 3 g in NaCl 0.9% 100 mL MB+/ADD-Eidson (UNASYN) 3 g INTRAVENOUS q 8 H [...] 7.324 (L) 7.350 - 7.450 Final Specific [place], [place] Date Value Ref Range Status 03/23/2019 [...] collection Further w/u of 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 SIGNATURE: Bravo Mueller MD PATIENT NAME: Mauri Quinones PAGER: [phone] [facility] PROGRESS HNO ID: [id number] Author: Jose Marcial Service: Hospital Medicine Author Type: Physician Type: Progress Notes Filed: 04/03/2019 4:50 PM Note Text: DEPARTMENT OF HOSPITAL MEDICINE PROGRESS NOTE SERVICE DATE: 04/03/2019 SERVICE TIME: 11:46 AM Hospital Medicine/Primary Attending: Jose Marcial, DO NIGHT AND WEEKEND COVERAGE: From 7am - 7pm, please call [employer] After 7pm, please call cross cover pager #[phone] Subjective INTERVAL HPI: Pt seen and examined. No new complaints. Neck/shoulder pain is stable. Per nursing Post void residual was 0. MEDICATIONS: Reviewed Objective PHYSICAL EXAM: BP 151/68 Pulse 69 Temp (Src) 97.9 (Oral) Resp 18 Ht 5' 10 (1.78m) Wt 203 lb (92.1kg) SpO2 94% BMI 29.13 kg/(m2). O2 Therapy: Room Air Physical Exam Performed General: Alert, NAD, cooperative CV: RRR, +[id number], no murmur Resp: CTA b/l, no wheeze [...] -- 03/24/19 0945 activity - mobilize patient (ut,oh) 03/24/19 0245 pneumatic compression stockings (ut,wv) 03/24/19 0245 activity - mobilize patient (ut,wv) VTE Prophylaxis: VTE prophylaxis appropriate Disposition: Acute Rehab. Plan of care discussed with: Patient, Care Management and RN SIGNATURE: Jose Marcial DO PATIENT NAME: Mauri Quinones DATE: April 03, 2019 TIME: 4:46 PM PAGER/CONTACT #: Maureen Gonzalez [facility] THERAPY NTon 04-03-2019 THERAPY NT HNO ID: [id number] Author: Paulette Barrera/Savanna Lion Service: Occupational Therapy Author Type: Occupational Therapist Type: Therapy (PT/OT/Speech/Resp) Filed: 04/03/2019 10:18 AM Note Text: Occupational Therapy Evaluation SERVICE DATE: 04/03/2019 SERVICE TIME: 0950 to 1010 ROOM: [id number] Recommended Discharge Disposition: Acute Rehab Recommended Discharge [...] Session: OOB in Chair;Call Emmanuel in Reach Tolerance Limited By Fatigue Occupational [...] of daily living (ADL) Interventions Provided: Self Senior Care Management (69364) Self Senior Care Management (69944) Treatment Minutes: 20 1 unit Skilled Intervention(s): [...] April 03, 2019 TIME: 10:14 AM Normal [facility] THERAPY NT HNO ID: [id number] Author: Vinny MarquezPt) JD Benitez Service: Physical Therapy Author Type: Physical Therapist Type: Therapy (PT/OT/Speech/Resp) Filed: 04/03/2019 10:18 AM Note Text: Physical Therapy Treatment SERVICE DATE: 04/03/2019 SERVICE TIME: 933 to 956 ROOM: [id number] Recommended Discharge Disposition: Acute Rehab Recommended Discharge [...] Patient;Family TREATMENT INTERVENTIONS: Interventions Provided: Therapeutic Exercise (43396);Gait Training (28462);Therapeutic Activity (56196) Therapeutic Exercise (22283) Treatment Minutes: 10 1 unit Skilled Intervention(s): Instruction in therapeutic exercise hip flexion/marching, long arc quads, ankle pumps, hip abduction/adduction Verbal and tactile cuing provided with demonstration for technique and appropriate muscle activation. Positive encouragement and cues for full AROM 2x10 reps each exercise Therapeutic Activity (17022) Treatment Minutes: 5 0 units Skilled Intervention(s): Instructed patient in log roll technique Instructed patient in supine to and from sit pushing with upper extremities to sit up Instruction in sit to and from stand technique with proper hand placement and body positioning at edge of bed/chair Education with appropriate use of wheeled walker Gait Training (01607) Treatment Minutes: 8 1 unit Skilled Intervention(s): [...] gait pattern;Gaby decreased;Step length decreased;Flexed trunk posture -[facility]: 7: Walk 25 feet or more Please see discipline specific clinical documentation flowsheet for complete details for this therapy evaluation/treatment. SIGNATURE: Vinny Benitez PT PATIENT NAME: Mauri Quinones DATE: April 03, 2019 TIME: 10:13 AM Normal [facility] Basic Panelon 04-02-2019 Creatinine [Mass/Vol] 2.10 mg/dL High 0.67-1.17 [facility] Comment on above: Performed By: #### E RTRP #### [place] [address] Anion gap [Moles/Vol] 13 mmol/L Normal 8-16 [facility] Comment on above: Performed By: #### E RTRP #### [address] [address] Calcium [Mass/Vol] 7.8 mg/dL Low 8.5-10.1 [facility] Comment on above: Performed By: #### E RTRP #### [address] [address] CO2 [Moles/Vol] 26 mmol/L Normal 21-32 [facility] Comment on above: Performed By: #### E RTRP #### [facility] [address] [place], [place] [address] Glucose [Mass/Vol] 91 mg/dL Normal 70-99 [facility] Comment on above: Performed By: #### E RTRP #### [address] [address] Urea nitrogen [Mass/Vol] 81 mg/dL High 7-18 [facility] Comment on above: Performed By: #### E RTRP #### [address] [place], [place] [address] Chloride [Moles/Vol] 102 mmol/L Normal 98-107 [facility] Comment on above: Performed By: #### E RTRP #### [facility] [address] [place], [place] [address] Potassium [Moles/Vol] 5.4 mmol/L High 3.5-5.1 [facility] Comment on above: Performed By: #### E RTRP #### [facility] [address] [place], [place] [address] Sodium [Moles/Vol] 136 mmol/L Normal 136-145 [facility] Comment on above: Performed By: #### E RTRP #### [facility] [address] [place], [place] [address] CASE MANAGEMon 04-02-2019 CASE MANAGEM HNO ID: [id number] Author: Jocelin MarquezRn) BISMARK Pagan Service: Care Management Author Type: Registered Nurse Type: Care Mgt Progress Note Filed: 04/02/2019 3:12 PM Note Text: CARE MANAGEMENT PROGRESS NOTE SERVICE DATE: 04/02/2019 SERVICE TIME: 2:57 PM LOS: 9 days Met with , discussed denial by [facility] and discussed Justino Esquivel. SHe would like referral placed to [facility] for acute rehab. SIGNATURE: Jocelin Pagan RN PATIENT NAME: Mauri Quinones DATE: April 02, 2019 TIME: 2:57 PM PAGER/CONTACT #: [phone] [facility] CASE MANAGEM HNO ID: [id number] Author: Jocelin Pagan RN Service: Care Management Author Type: Registered Nurse Type: Care Mgt Progress Note Filed: 04/02/2019 9:59 AM Note Text: CARE MANAGEMENT PROGRESS NOTE SERVICE DATE: 04/02/2019 SERVICE TIME: 9:57 AM LOS: 9 days FREEDOM OF CHOICE GIVEN: The patient and/or family has been given the Provider List: Yes Provider List: Jail Facility Met with pt at bedside, discussed denial by [facility], provided SNF choice list to pt waiting for to come in and will discuss options. SIGNATURE: Jocelin Pagan RN PATIENT NAME: Mauri Quinones DATE: April 02, 2019 TIME: 9:57 AM PAGER/CONTACT #: [phone] [facility] CONSULT PROGon 04-02-2019 CONSULT PROG HNO ID: [id number] Author: Mohsen Castellanos Service: Infectious Disease Author [...] Repeat cbc in am. Mohsen Castellanos MD [facility] CONSULT PROG HNO ID: [id number] Author: Kiera Gonzalez Service: Endocrinology Author Type: [...] 3 g in NaCl 0.9% 100 mL MB+/ADD-Eidson (UNASYN) 3 g INTRAVENOUS q 8 H [...] management seeing pt GARRET (acute kidney injury) ([facility]) POA: Yes Assessment AND Plan: creat 2.1(1.92)(1.81)(1.70)(1.77 )(1.86)(2.09)(2.33)(2.47); baseline 1.54; per renal CKD (chronic kidney disease) stage 3, GFR 30-59 ml/min ([facility]) POA: Yes Assessment AND Plan: creat 1.54 in 07/2018 Arteriosclerotic heart disease (ASHD) POA: Yes Assessment AND Plan: hx Hypertension, essential POA: Yes Assessment AND Plan: per caprice UTI (urinary tract infection) POA: Unknown Assessment AND Plan: on A/B Chronic combined systolic and diastolic CHF (congestive heart failure) ([facility]) POA: Yes Assessment AND Plan: hx SIGNATURE: Kiera Gonzalez MD PATIENT NAME: Mauri Quinones DATE: April 02, 2019 TIME: 8:57 AM PAGER: [phone] Normal [facility] NURSING PROGon 04-02-2019 NURSING PROG HNO ID: [id number] Author: Shaye (Rn) BISMARK Petty Service: ? Author Type: Registered Nurse Type: Nursing Progress Note Filed: 04/02/2019 6:34 AM Note Text: This RN at bedside to straight cath pt. RN explained procedure to pt and he is agreeable. 14F straight cath used with sterile technique to get out 450cc clear yellow urine. Pt tolerated well. [facility] NURSING PROG HNO ID: [id number] Author: Fallon Chaney RN Service: Nursing Author Type: Registered Nurse Type: Nursing Progress Note Filed: 04/02/2019 6:27 AM Note Text: Nursing Progress Note Patient Name: Mauri Quinones Patient Location: [id number] Dr. Brioens ordered another straight cath for the pt. The pt had an output of 450. This RN will continue to monitor. This note was completed by: Fallon Chaney RN [facility] NURSING PROG HNO ID: [id number] Author: Fallon Chaney RN Service: Nursing Author Type: Registered Nurse Type: Nursing Progress Note Filed: 04/02/2019 6:05 AM Note Text: Nursing Progress Note Patient Name: Mauri Quinones Patient Location: [id number] Pt has still not voided since DC of butler. Pt was bladder scanned and 400 was detected. Paged sound for further instruction. Will continue to monitor. This note was completed by: Fallon Chaney RN [facility] NURSING PROG HNO ID: [id number] Author: Fallon Chaney RN Service: Nursing Author Type: Registered Nurse Type: Nursing Progress Note Filed: 04/01/2019 10:54 PM Note Text: Nursing Progress Note Patient Name: Mauri Quinones Patient Location: [id number] Lydia from sound ordered a one time straight cath. We removed 325 from the pt. Will rescan the pt at 530 am. Will continue to monitor. This note was completed by: Fallon Chaney RN [facility] NURSING PROG HNO ID: [id number] Author: Fallon Chaney RN Service: Nursing Author Type: Registered Nurse Type: Nursing Progress Note Filed: 04/01/2019 10:11 PM Note Text: Nursing Progress Note Patient Name: Mauri Quinones Patient Location: [id number] Pt was bladder scanned and showed a volume of 332. Paged [employer] to notify. Will continue to monitor. This note was completed by: Fallon Chaney RN [facility] PLAN OF CAREon 04-02-2019 PLAN OF CARE HNO ID: [id number] Author: Michelle Zayas (Loading Machine Tool Setter) Service: Pharmacy Author Type: ? Type: Plan of Care Filed: 04/02/2019 11:00 AM Note Text: [employer] BEDSIDE DELIVERY SURVEY 1. Patient to use [facility] Bedside Delivery - N/A Insurance Information as follows: 2. Insurance card on file - N/A 3. Credit card for payment - N/A Pt DC to SNF/Acute Rehab/Inpatient Facility therefore not eligible for Pharmacy Bedside Delivery service. [facility] PROGRESSon 04-02-2019 PROGRESS HNO ID: [id number] Author: Jose Marcial Service: Hospital Medicine Author Type: Physician Type: Progress Notes Filed: 04/02/2019 6:36 PM Note Text: DEPARTMENT OF HOSPITAL MEDICINE PROGRESS NOTE SERVICE DATE: 04/02/2019 SERVICE TIME: 6:17 PM Hospital Medicine/Primary Attending: Jose Marcial, DO NIGHT AND WEEKEND COVERAGE: From 7am - 7pm, please call [employer] After 7pm, please call cross cover pager #[phone] Subjective INTERVAL HPI: Pt seen and examined. No new complaints MEDICATIONS: Reviewed Objective PHYSICAL EXAM: BP 116/51 Pulse 66 Temp (Src) 98.2 (Oral) Resp 16 Ht 5' 10 (1.78m) Wt 181 lb 14.1 oz (82.5kg) SpO2 94% BMI 26.10 kg/(m2). O2 Therapy: Room Air Physical Exam Performed General: Alert, NAD, cooperative CV: RRR, +[id number], no murmur Resp: CTA b/l, no wheeze [...] -- 03/24/19 0945 activity - mobilize patient (ut,wv) 03/24/19 0245 pneumatic compression stockings (ut,wv) 03/24/19 0245 activity - mobilize patient ([place]) VTE Prophylaxis: VTE prophylaxis appropriate Disposition: Acute Rehab Plan of care discussed with: Patient SIGNATURE: Jose Marcial DO PATIENT NAME: Mauri Quinones DATE: April 02, 2019 TIME: 6:17 PM PAGER/CONTACT #: Maureen Gonzalez [facility] PROGRESS HNO ID: [id number] Author: Bravo Lamb) Ervin Service: Nephrology Author [...] 3 g in NaCl 0.9% 100 mL MB+/ADD-Eidson (UNASYN) 3 g INTRAVENOUS q 8 H [...] 7.324 (L) 7.350 - 7.450 Final Specific [place], Ur Date Value Ref Range Status 03/23/2019 [...] US Further w/u of 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 SIGNATURE: Bravo Mueller MD PATIENT NAME: Mauri Quinones PAGER: [phone] Normal [facility] Basic Panelon 04-01-2019 Creatinine [Mass/Vol] 1.92 mg/dL High 0.67-1.17 [facility] Comment on above: Performed By: #### E RTRP #### [address] [address] Anion gap [Moles/Vol] 11 mmol/L Normal 8-16 [facility] Comment on above: Performed By: #### E RTRP #### [address] [address] Calcium [Mass/Vol] 8.5 mg/dL Normal 8.5-10.1 [facility] Comment on above: Performed By: #### E RTRP #### [address] [address] CO2 [Moles/Vol] 24 mmol/L Normal 21-32 [facility] Comment on above: Performed By: #### E RTRP #### [facility] [address] [place], [place] [address] Glucose [Mass/Vol] 105 mg/dL High 70-99 [facility] Comment on above: Performed By: #### E RTRP #### [address] [address] Urea nitrogen [Mass/Vol] 73 mg/dL High 7-18 [facility] Comment on above: Performed By: #### E RTRP #### [facility] [address] [place], [place] [address] Chloride [Moles/Vol] 104 mmol/L Normal 98-107 [facility] Comment on above: Performed By: #### E RTRP #### [facility] [address] [place], [place] [address] Potassium [Moles/Vol] 5.2 mmol/L High 3.5-5.1 [facility] Comment on above: Performed By: #### E RTRP #### [facility] [address] [place], [place] [address] Sodium [Moles/Vol] 134 mmol/L Low 136-145 [facility] Comment on above: Performed By: #### E RTRP #### [facility] [address] [place], [place] [address] CASE MANAGEMon 04-01-2019 CASE MANAGEM HNO ID: [id number] Author: Jocelin (Rn) BISMARK Pagan Service: Care [...] 01, 2019 TIME: 1:50 PM PAGER/CONTACT #: [phone] [facility] CONSULT PROGon 04-01-2019 CONSULT PROG HNO ID: [id number] Author: Mohsen Castellanos Service: Infectious Disease Author [...] q8h for risisng creatinine. Mohsen Castellanos MD [facility] CONSULT PROG HNO ID: [id number] Author: Kiera Gonzalez Service: Endocrinology Author Type: [...] 3 g in NaCl 0.9% 100 mL MB+/ADD-Eidson (UNASYN) 3 g INTRAVENOUS q 6 H [...] management seeing pt GARRET (acute kidney injury) ([facility]) POA: Yes Assessment AND Plan: creat 1.92(1.81)(1.70)(1.77)(1.8 6)(2.09)(2.33)(2.47); baseline 1.54; per renal CKD (chronic kidney disease) stage 3, GFR 30-59 ml/min ([facility]) POA: Yes Assessment AND Plan: creat 1.54 in 07/2018 Arteriosclerotic heart disease (ASHD) POA: Yes Assessment AND Plan: hx Hypertension, essential POA: Yes Assessment AND Plan: per caprice UTI (urinary tract infection) POA: Unknown Assessment AND Plan: on A/B Chronic combined systolic and diastolic CHF (congestive heart failure) ([facility]) POA: Yes Assessment AND Plan: hx SIGNATURE: Kiera Gonzalez MD PATIENT NAME: Mauri Quinones DATE: April 01, 2019 TIME: 9:10 AM PAGER: [phone] Normal [facility] Hemogram/Diffon 04-01-2019 Abs Immature Grans 0.26 thou/cmm High 0.00-0.05 [facility] Comment on above: Performed By: #### E RTRP #### [place] [address] Abs Neut (ANC) 12.96 thou/cmm High 1.78-5.38 [facility] Comment on above: Performed By: #### E RTRP #### [place] [address] Abs. Baso 0.07 thou/cmm Normal 0.01-0.08 [facility] Comment on above: Performed By: #### E RTRP #### [facility] [address] [place], [place] [address] Abs. Kemper 1.69 thou/cmm High 0.30-0.82 [facility] Comment on above: Performed By: #### E RTRP #### [facility] [address] [place], [place] [address] Basophils/100 WBC (Bld) 0.4 % Normal [facility] Comment on above: Performed By: #### E RTRP #### [facility] [address] [place], [place] [address] Eosinophils (Bld) [#/Vol] 0.39 thou/cmm Normal 0.04-0.54 [facility] Comment on above: Performed By: #### E RTRP #### [facility] [address] [place], [place] [address] Eosinophils/100 WBC (Bld) 2.4 % Normal [facility] Comment on above: Performed By: #### E RTRP #### [facility] [address] [place], [place] [address] Immature Grans 1.60 % Normal [facility] Comment on above: Performed By: #### E RTRP #### [facility] [address] [place], [place] [address] Lymphocytes (Bld) [#/Vol] 1.03 thou/cmm Normal 0.84-2.85 [facility] Comment on above: Performed By: #### E RTRP #### [facility] [address] [place], [place] [address] Lymphocytes/100 WBC (Bld) 6.3 % Normal [facility] Comment on above: Performed By: #### E RTRP #### [facility] [address] [place], [place] [address] Monocytes/100 WBC (Bld) 10.3 % Normal [facility] Comment on above: Performed By: #### E RTRP #### [facility] [address] [place], [place] [address] Seg Neutrophil 79.0 % Normal [facility] Comment on above: Performed By: #### E RTRP #### [facility] [address] [place], [place] [address] Erythrocyte distribution width (RBC) [Ratio] 13.9 % Normal 11.6-14.4 [facility] Comment on above: Performed By: #### E RTRP #### [facility] [address] [place], [place] [address] Hematocrit (Bld) [Volume fraction] 29.0 % Low 40.1-51.0 [facility] Comment on above: Performed By: #### E RTRP #### [facility] [address] [place] [address] Hemoglobin (Bld) [Mass/Vol] 9.1 g/dL Low 13.7-17.5 [facility] Comment on above: Performed By: #### E RTRP #### [facility] [address] [place] [address] MCH (RBC) [Entitic mass] 30.1 pg Normal 25.7-32.2 [facility] Comment on above: Performed By: #### E RTRP #### [facility] [address] [place] [address] MCHC (RBC) [Mass/Vol] 31.4 % Low 32.3-36.5 [facility] Comment on above: Performed By: #### E RTRP #### [facility] [address] [place] [address] MCV (RBC) [Entitic vol] 96.0 fL High 83.2-95.6 [facility] Comment on above: Performed By: #### E RTRP #### [facility] [address] [place], [place] [address] Platelet mean volume (Bld) [Entitic vol] 8.8 fL Normal 8.7-12.0 [facility] Comment on above: Performed By: #### E RTRP #### [facility] [address] [place], [place] [address] Platelets (Bld) [#/Vol] 348 thou/cmm Normal 141-365 [facility] Comment on above: Performed By: #### E RTRP #### [facility] [address] [place], [place] [address] RBC (Bld) [#/Vol] 3.02 mil/cmm Low 4.63-6.08 [facility] Comment on above: Performed By: #### E RTRP #### [facility] [address] [place] [address] RDW SD 48.4 fl High 36.1-45.8 [facility] Comment on above: Performed By: #### E RTRP #### [facility] [address] [place] [address] WBC (Bld) [#/Vol] 16.41 thou/cmm High 4.23-9.07 [facility] Comment on above: Performed By: #### E RTRP #### [facility] [address] [place] [address] NUTRITIONon 04-01-2019 NUTRITION HNO ID: [id number] Author: Elizabeth Madrid Service: Nutrition Therapy Author [...] 2 days later. Patient has been to [place] ER ?2 and was diagnosed with a cervical strain as well as arthritis in the neck. He was put on muscle relaxants and pain medications. He was also diagnosed with a UTI and put on Keflex. Patient was not having any improvement with symptoms and came to [facility] ER. Patient currently is having pain in [...] Complication, With Long-Term Current Use of Insulin (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 [place] [facility]) Acute On Chronic Diastolic Congestive Heart Failure ([facility]) Recurrent Right Pleural Effusion Pvd (Peripheral Vascular Disease) ([facility]) Altered Mental Status Uti (Urinary Tract Infection) Chronic Combined Systolic and Diastolic Chf (Congestive Heart Failure) ([facility]) Hyperkalemia Hypoxia Hypoalbuminemia Garret (Acute Kidney Injury) ([facility]) Ckd (Chronic Kidney Disease) Stage 3, Gfr 30-59 Ml/Min ([facility]) High Phosphate Levels Hyponatremia Delirium PAST MEDICAL HISTORY Diagnosis Date - GARRET (acute kidney injury) ([facility]) 03/24/2019 - Ankylosing spondylitis ([facility]) - CAD (coronary artery disease) - Cellulitis - Chronic combined systolic and diastolic CHF (congestive heart failure) ([facility]) 03/24/2019 - CKD (chronic kidney disease) stage 3, GFR 30-59 ml/min ([facility]) 03/24/2019 - Constipation - Diabetes ([facility]) - Gout - High phosphate levels 03/24/2019 - Hx of fracture multiple bones - Hyperkalemia 03/24/2019 - Hypoalbuminemia 03/24/2019 - Hyponatremia 03/24/2019 - Hypoxia 03/24/2019 - NSTEMI (non-ST elevated myocardial infarction) ([facility]) 03/12/2017 [facility] admit - Osteoarthritis PAST SURGICAL HISTORY [...] over the past 8 day(s) 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 appetite and PO were adequate and denies [...] Resting Metabolic Rate: 1646 Estimated kilocalorie needs: 7644-9776 kilocalories determined by 25-30 kcal/kg Estimated protein [...] 3 g in NaCl 0.9% 100 mL MB+/ADD-Eidson (UNASYN) 3 g INTRAVENOUS q 6 H [...] 03/31/[address] - 04/01/1965804/01/19699 - 04/02/19 0659 Shift 0742-9911 7398-9065 2840-1303 24 Hour Total 0162-3832 8893-2054 9123-6415 24 Hour Total INTAKE PO 240 240 PO 240 240 Shift Total 240 240 OUTPUT Urine 078 265 8421 Output ( Indwelling Urinary Catheter 03/28/19 1500 [place] 16 Fr) 532 969 8731 # of BMs Number of BMs 1 x 1 x 1 x 1 x Shift Total 768 155 9863 Weight (kg) 83.1 83.1 83.1 83.1 83.1 83.1 83.1 83.1 Vitamin and Mineral Labs in the past year: Recent Labs 03/24/19 1019 04/17/18 1609 B12 1,687* -- TIBC -- 312 FE -- 77 BOBY -- 142.0 MNT Billing Type: Initial Assess/15 min 2 units SIGNATURE: Elizabeth Madrid RD,LD PATIENT NAME: Mauri Quinones DATE: April 01, 2019 TIME: 9:24 AM PAGER: [phone] Normal [facility] PROGRESSon 04-01-2019 PROGRESS HNO ID: [id number] Author: Ra Alcala Service: Hospital Medicine Author Type: Physician Type: Progress Notes Filed: 04/01/2019 3:59 PM Note Text: DEPARTMENT OF HOSPITAL MEDICINE PROGRESS NOTE SERVICE DATE: 04/01/2019 SERVICE TIME: 3:55 PM Hospital Medicine/Primary Attending: Ra Alcala MD NIGHT AND WEEKEND COVERAGE: After 7pm please page [phone] SUBJECTIVE: F/u UTI. 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 SIGNATURE: Bravo Mueller MD PATIENT NAME: Mauri Quinones PAGER: [phone] [facility] CASE MANAGEMon 03-31-2019 CASE MANAGEM HNO ID: [id number] Author: Addie (Rn) BISMARK Mcdaniel Service: Care Management Author Type: Registered Nurse Type: Care Mgt Progress Note Filed: 03/31/2019 3:56 PM Note Text: CARE MANAGEMENT PROGRESS NOTE SERVICE DATE: 03/31/2019 SERVICE TIME: 3:54 PM LOS: 7 days Met with patient and family at the bed side. They are requesting [facility] rehab. Referral placed. Patients insurance changed on 03/27/2019 no longer [place] but now [employer]. Letter that the had was copied and sent to admitting and . SIGNATURE: Addie Mcdaniel RN PATIENT NAME: Mauri Quinones DATE: March 31, 2019 TIME: 3:54 PM PAGER/CONTACT #: [phone] [facility] CONSULT PROGon 03-31-2019 CONSULT PROG HNO ID: [id number] Author: Mohsen Castellanos Service: Infectious Disease Author [...] 3 g in NaCl 0.9% 100 mL MB+/ADD-Eidson (UNASYN) 3 g INTRAVENOUS q 6 H [...] complication, with long-term current use of insulin ([facility]) POA: Yes Assessment AND Plan: UTI (urinary tract infection) POA: Unknown Assessment AND Plan: E faecalis. Possibly aggravated by urinary retention? Continue unasyn. Chronic combined systolic and diastolic CHF (congestive heart failure) ([facility]) POA: Yes Assessment AND Plan: Possible pneumonia LLL- continue unasyn. Check repeat cbc in am. GARRET (acute kidney injury) ([facility]) POA: Yes Assessment AND Plan: CKD (chronic kidney disease) stage 3, GFR 30-59 ml/min ([facility]) POA: Yes Assessment AND Plan: Delirium POA: Yes Assessment AND Plan: attributed to infection, improving today. If he continues to improve, will change unasyn to po augmentin tomorrow. Resolved Problems: * No resolved hospital problems. * SIGNATURE: Mohsen Castellanos MD PATIENT NAME: Mauri Quinones DATE: March 31, 2019 TIME: 1:05 PM PAGER/CONTACT #: [phone] Normal [facility] CONSULT PROG HNO ID: [id number] Author: Kiera Gonzalez Service: Endocrinology Author Type: [...] 3 g in NaCl 0.9% 100 mL MB+/ADD-Eidson (UNASYN) 3 g INTRAVENOUS q 6 H [...] complication, with long-term current use of insulin ([facility]) POA: Yes Assessment AND Plan: 12-15 ears [...] management seeing pt GARRET (acute kidney injury) ([facility]) POA: Yes Assessment AND Plan: creat 1.81(1.70)(1.77)(1.86)(2.0 9)(2.33)(2.47); baseline 1.54; per renal CKD (chronic kidney disease) stage 3, GFR 30-59 ml/min ([facility]) POA: Yes Assessment AND Plan: creat 1.54 [...] March 31, 2019 TIME: 9:35 AM PAGER: [phone] [facility] PROGRESSon 03-31-2019 PROGRESS HNO ID: [id number] Author: Bravo Lamb) Ervin Service: Nephrology Author [...] 3 g in NaCl 0.9% 100 mL MB+/ADD-Eidson (UNASYN) 3 g INTRAVENOUS q 6 H [...] 7.324 (L) 7.350 - 7.450 Final Specific [place], Ur Date Value Ref Range Status 03/23/2019 [...] Mueller MD PATIENT NAME: Mauri Quinones PAGER: [phone] Normal [facility] PROGRESS HNO ID: [id number] Author: Ra Alcala Service: Hospital Medicine Author Type: Physician Type: Progress Notes Filed: 03/31/2019 11:09 AM Note Text: DEPARTMENT OF HOSPITAL MEDICINE PROGRESS NOTE SERVICE DATE: 03/31/2019 SERVICE TIME: 11:07 AM Hospital Medicine/Primary Attending: Ra Alcala MD NIGHT AND WEEKEND COVERAGE: After 7pm please page [phone] SUBJECTIVE: F/u UTI. No CP SOB NVD, [...] 3 g in NaCl 0.9% 100 mL MB+/ADD-Eidson (UNASYN) 3 g INTRAVENOUS q 6 H [...] 11:07 AM PAGER/CONTACT #: My Pager Normal [facility] Renal Panelon 03-31-2019 Creatinine [Mass/Vol] 1.81 mg/dL High 0.67-1.17 [facility] Comment on above: Performed By: #### E RTRP #### [place] [address] Phosphate [Mass/Vol] 4.6 mg/dL Normal 2.5-4.9 [facility] Comment on above: Performed By: #### E RTRP #### [facility] [address] [place], [place] [address] Albumin [Mass/Vol] 1.4 g/dL Low 3.4-5.0 [facility] Comment on above: Performed By: #### E RTRP #### [facility] [address] [place], [place] [address] Anion gap [Moles/Vol] 12 mmol/L Normal 8-16 [facility] Comment on above: Performed By: #### E RTRP #### [facility] [address] [place], [place] [address] CO2 [Moles/Vol] 23 mmol/L Normal 21-32 [facility] Comment on above: Performed By: #### E RTRP #### [facility] [address] [place], [place] [address] Glucose [Mass/Vol] 101 mg/dL High 70-99 [facility] Comment on above: Performed By: #### E RTRP #### [facility] [address] [place], [place] [address] Urea nitrogen [Mass/Vol] 69 mg/dL High 7-18 [facility] Comment on above: Performed By: #### E RTRP #### [facility] [address] [place], [place] [address] Calcium [Mass/Vol] 8.4 mg/dL Low 8.5-10.1 [facility] Comment on above: Performed By: #### E RTRP #### [facility] [address] [place], [place] [address] Chloride [Moles/Vol] 106 mmol/L Normal 98-107 [facility] Comment on above: Performed By: #### E RTRP #### [facility] [address] [place], [place] [address] Potassium [Moles/Vol] 5.2 mmol/L High 3.5-5.1 [facility] Comment on above: Performed By: #### E RTRP #### [place] [address] Sodium [Moles/Vol] 136 mmol/L Normal 136-145 [facility] Comment on above: Performed By: #### E RTRP #### [address] [address] THERAPY NTon 03-31-2019 THERAPY NT HNO ID: [id number] Author: Erica Downeyr/Savanna Ho OT Service: Occupational Therapy Author Type: Occupational Therapist Type: Therapy (PT/OT/Speech/Resp) Filed: 03/31/2019 11:58 AM Note Text: Occupational Therapy Treatment SERVICE DATE: 03/31/2019 SERVICE TIME: 1126 to 1142 ROOM: [place] [address] Recommended Discharge Disposition: Acute Rehab Recommended Discharge [...] daily living (ADL) Interventions Provided: Therapeutic Activity (11771) Therapeutic Activity (77522) Treatment Minutes: 16 1 unit Skilled Intervention(s): [...] March 31, 2019 TIME: 11:51 AM [facility] THERAPY NT HNO ID: [id number] Author: Elizabeth Brown Service: Physical Therapy Author Type: Nurse Practitioner Adult Type: Therapy (PT/OT/Speech/Resp) Filed: 03/31/2019 9:20 AM Note Text: -- Attestation signed by Vinny MarquezPt) JD Benitez at 03/31/2019 4:28 PM I reviewed and agree with the documentation corresponding to this therapy visit. SIGNATURE: Vinny Benitez PT DATE: March 31, 2019 TIME: 4:28 PM -- Physical Therapy Treatment SERVICE DATE: 03/31/2019 SERVICE TIME: 0835 to 0900 ROOM: [id number] Recommended Discharge Disposition: Acute Rehab Recommended Discharge [...] Patient;Family TREATMENT INTERVENTIONS: Interventions Provided: Therapeutic Exercise (90485);Therapeutic Activity (13479) Therapeutic Exercise (62387) Treatment Minutes: 13 1 unit Skilled Intervention(s): Instruction in therapeutic exercise for both legs: ankle pump, quad set, glute set, adductor set, hip abduction/adduction, heel slide, short arc quad, and long arc quad x 12 reps with min assist with hip abduction and heel slide. Verbal and tactile cuing provided for slower pace and maintain proper alignment. Therapeutic Activity (19220) Treatment Minutes: 12 1 unit Skilled Intervention(s): [...] help with standing. Education with use of [place] cervical collar, how to don/doff. Patient requires [...] March 31, 2019 TIME: 9:11 AM [facility] CONSULT PROGon 03-30-2019 CONSULT PROG HNO ID: [id number] Author: Kavitha Fofana Service: Endocrinology Author Type: [...] complication, with long-term current use of insulin ([facility]) POA: Yes Assessment AND Plan: 12-15 ears [...] management seeing pt GARRET (acute kidney injury) ([facility]) POA: Yes Assessment AND Plan: creat 1.70(1.77)(1.86)(2.09)(2.3 3)(2.47); baseline 1.54; per renal CKD (chronic kidney disease) stage 3, GFR 30-59 ml/min ([facility]) POA: Yes Assessment AND Plan: creat 1.54 in 07/2018 Arteriosclerotic heart disease (ASHD) POA: Yes Assessment AND Plan: hx Hypertension, essential POA: Yes Assessment AND Plan: per caprice UTI (urinary tract infection) POA: Unknown Assessment AND Plan: on A/B Chronic combined systolic and diastolic CHF (congestive heart failure) ([facility]) POA: Yes Assessment AND Plan: hx SIGNATURE: Kavitha Fofana MD PATIENT NAME: Mauri Quinones DATE: March 30, 2019 TIME: 1:58 PM PAGER: [phone] [facility] Cult and Smr ROSARIO and AERon 0 03-30-2019 Cult and Smr ROSARIO and AER Test performed at [facility] Rare Mixed anaerobic douglas. No Bacteroides fragilis group isolated. No Clostridium perfringens isolated. No organisms seen Few Polymorphonuclear leukocytes Rare Squamous epithelial cells ORGANISM: *Gram Positive Organisms (ID: 1) Rare Mixed skin douglas. ORGANISM: *Kimberlee albicans (ID: 2) Rare Normal [facility] Comment on above: Performed By: #### E RTRP #### [facility] [address] [place] [address] Hemogram/Diffon 03-30-2019 Abs Immature Grans 0.24 thou/cmm High 0.00-0.05 [facility] Comment on above: Performed By: #### E RTRP #### [facility] [address] [place] [address] Abs Neut (ANC) 13.22 thou/cmm High 1.78-5.38 [facility] Comment on above: Performed By: #### E RTRP #### [facility] [address] [place] [address] Abs. Baso 0.06 thou/cmm Normal 0.01-0.08 [facility] Comment on above: Performed By: #### E RTRP #### [facility] [address] [place] [address] Abs. Kemper 1.63 thou/cmm High 0.30-0.82 [facility] Comment on above: Performed By: #### E RTRP #### [facility] [address] [place], [place] [address] Basophils/100 WBC (Bld) 0.4 % Normal [facility] Comment on above: Performed By: #### E RTRP #### [facility] [address] [place] [address] Eosinophils (Bld) [#/Vol] 0.18 thou/cmm Normal 0.04-0.54 [facility] Comment on above: Performed By: #### E RTRP #### [facility] [address] [place] [address] Eosinophils/100 WBC (Bld) 1.1 % Normal [facility] Comment on above: Performed By: #### E RTRP #### [facility] [address] [place] [address] Immature Grans 1.50 % Normal [facility] Comment on above: Performed By: #### E RTRP #### [facility] [address] [place], [place] [address] Lymphocytes (Bld) [#/Vol] 0.77 thou/cmm Low 0.84-2.85 [facility] Comment on above: Performed By: #### E RTRP #### [facility] [address] [place], [place] [address] Lymphocytes/100 WBC (Bld) 4.8 % Normal [facility] Comment on above: Performed By: #### E RTRP #### [facility] [address] [place], [place] [address] Monocytes/100 WBC (Bld) 10.1 % Normal [facility] Comment on above: Performed By: #### E RTRP #### [facility] [address] [place] [address] Seg Neutrophil 82.1 % Normal [facility] Comment on above: Performed By: #### E RTRP #### [facility] [address] [place] [address] Erythrocyte distribution width (RBC) [Ratio] 14.0 % Normal 11.6-14.4 [facility] Comment on above: Performed By: #### E RTRP #### [facility] [address] [place] [address] Hematocrit (Bld) [Volume fraction] 30.5 % Low 40.1-51.0 [facility] Comment on above: Performed By: #### E RTRP #### [facility] [address] [place] [address] Hemoglobin (Bld) [Mass/Vol] 9.3 g/dL Low 13.7-17.5 [facility] Comment on above: Performed By: #### E RTRP #### [facility] [address] [place] [address] MCH (RBC) [Entitic mass] 29.2 pg Normal 25.7-32.2 [facility] Comment on above: Performed By: #### E RTRP #### [facility] [address] [place] [address] [place], [place] [address] MCHC (RBC) [Mass/Vol] 30.5 % Low 32.3-36.5 [facility] Comment on above: Performed By: #### E RTRP #### [facility] [address] [place] [id number] MCV (RBC) [Entitic vol] 95.6 fL Normal 83.2-95.6 [facility] Comment on above: Performed By: #### E RTRP #### [facility] [address] [place] [address] Platelet mean volume (Bld) [Entitic vol] 9.0 fL Normal 8.7-12.0 [facility] Comment on above: Performed By: #### E RTRP #### [facility] [address] [place] [address] Platelets (Bld) [#/Vol] 410 thou/cmm High 141-365 [facility] Comment on above: Performed By: #### E RTRP #### [facility] [address] [place] [address] RBC (Bld) [#/Vol] 3.19 mil/cmm Low 4.63-6.08 [facility] Comment on above: Performed By: #### E RTRP #### [facility] [address] [place] [address] RDW SD 48.9 fl High 36.1-45.8 [facility] Comment on above: Performed By: #### E RTRP #### [facility] [address] [place] [address] WBC (Bld) [#/Vol] 16.10 thou/cmm High 4.23-9.07 [facility] Comment on above: Performed By: #### E RTRP #### [facility] [address] [place] [address] PROGRESSon 03-30-2019 PROGRESS HNO ID: [id number] Author: Cirilo Vitale III Service: Infectious Disease [...] 30, 2019 TIME: 4:44 PM PAGER/CONTACT #: [phone] . Normal [facility] PROGRESS HNO ID: [id number] Author: Ra Alcala Service: Hospital Medicine Author Type: Physician Type: Progress Notes Filed: 03/30/2019 1:00 PM Note Text: DEPARTMENT OF HOSPITAL MEDICINE PROGRESS NOTE SERVICE DATE: 03/30/2019 SERVICE TIME: 12:53 PM Hospital Medicine/Primary Attending: Ra Alcala MD NIGHT AND WEEKEND COVERAGE: After 7pm please page [phone] SUBJECTIVE: F/u AMS. No CP SOB NVD. [...] 12:53 PM PAGER/CONTACT #: My Pager Normal [facility] PROGRESS HNO ID: [id number] Author: Rj Anderson Service: Nephrology Author Type: [...] mL 3-5 mL INTRAVENOUS q 12 H Danet Myers 3 mL at 03/26/19 0832 heparin [...] 3-5 mL INTRAVENOUS q 12 H Vandana (Test Engineering Technician) Jatin 3 mL at 03/29/19 2105 aluminum-magnesium hydroxide-simethicone 200-200-20 mg/5 mL 30 mL (MAALOX,MYLANTA,MAG-AL PLUS) 30 mL ORAL DAILY PRN Vandana (Test Engineering Technician) Jatin docusate sodium 100 mg cap(s) (COLACE) 100 mg ORAL BID PRN Vandana (Test Engineering Technician) Jatin ipratropium-albuterol 3 mL nebulizer solution (DUONEB) 3 mL INHALATION q 4 H PRN Vandana (Test Engineering Technician) Jatin insulin lispro pen (rapid acting) (HumaLOG KWIKPEN) SUBCUTANEOUS w MEALS Kiera Midha 1 Units at 03/30/19 0830 calcium acetate 667 mg tab(s) (CALPHRON) 667 mg ORAL TID w MEALS Donavan (Res) MD Nahomi 667 mg at 03/30/19 0828 insulin detemir U-100 15 Units injection (long acting) (LEVEMIR) 15 Units SUBCUTANEOUS DAILY (8 AM) Kiera Midha 15 Units at 03/30/19 0830 No current [facility]-ordered outpatient medications on file. Vitals: BP [...] prior to admission when he presented to [place] ED . Pt was given Kayexalate at that time. Some increase of K today-likely hemolysis. However, will recheck K since he is on LR. Avoid ACEI/ARB for now-see above. ?4- Hyperphosphatemia: On Phoslo 667 mg one with each meal. Ca/P are acceptable. ? ?5- UTI: Enterococcal. ID following. On vancomycin. Please do not hesitate to contact me at [phone] if there is any question or concern. Lauren Mcintyre MD (Rj Anderson) Normal [facility] PROGRESS HNO ID: [id number] Author: Cirilo Vitale III Service: Infectious Disease Author Type: Physician Type: Progress Notes Filed: 03/30/2019 9:27 AM Note Text: INFECTIOUS DISEASE PROGRESS NOTE March 30, 2019 9:20 AM F/u Enterococcal UTI RN reports mental status improving today Patient able to say it is 2018. When asked other orientation questions he kept saying 2018, but upon redirection able to answer these Month=september Location=[facility] Review of Systems Has neck pain. No [...] suppository (DULCOLAX) 10 mg RECTAL DAILY PRN Danet Myers - dextrose 40 % 15 g 15 g ORAL PRN Dante Myers Or - glucagon 1 mg injection (GLUCAGEN) 1 mg INTRAMUSCULAR PRN Dante Myers Or - dextrose 50 % 12.5 g injection 12.5 g INTRAVENOUS PRN Dante Myers - NaCl 0.9% 3-5 mL 3-5 mL INTRAVENOUS q 12 H Vandana (Test Engineering TechnicianAnette Steiner 3 mL at 08/03/19 2105 - aluminum-magnesium hydroxide-simethicone 200-200-20 mg/5 mL 30 mL (MAALOX,MYLANTA,MAG-AL PLUS) 30 mL ORAL DAILY PRN Vandana (Test Engineering Technician) Jatin - docusate sodium 100 mg cap(s) (COLACE) 100 mg ORAL BID PRN Vandana (Test Engineering Technician) Jatin - ipratropium-albuterol 3 mL nebulizer solution (DUONEB) 3 mL INHALATION q 4 H PRN Vandana (Test Engineering Technician) Jatin - insulin lispro pen (rapid acting) [...] 30, 2019 TIME: 9:20 AM PAGER/CONTACT #: [phone] Normal [facility] Potassium Bloodon 03-30-2019 Potassium [Moles/Vol] 4.9 mmol/L Normal 3.5-5.1 [facility] Comment on above: Performed By: #### E RTRP #### [place] [address] Renal Panelon 03-30-2019 Creatinine [Mass/Vol] 1.70 mg/dL High 0.67-1.17 [facility] Comment on above: Performed By: #### E RTRP #### [place] [address] Anion gap [Moles/Vol] 14 mmol/L Normal 8-16 [facility] Comment on above: Performed By: #### E RTRP #### [place] [address] Potassium [Moles/Vol] 5.7 mmol/L High 3.5-5.1 [facility] Comment on above: Result Comment: SPEC IMEN SLIGHTLY HEMOLYZED Performed By: #### E RTRP #### [place] [address] Phosphate [Mass/Vol] 4.7 mg/dL Normal 2.5-4.9 [facility] Comment on above: Performed By: #### E RTRP #### [facility] [address] [place], [place] [address] CO2 [Moles/Vol] 21 mmol/L Normal 21-32 [facility] Comment on above: Performed By: #### E RTRP #### [facility] [address] [place], [place] [address] Albumin [Mass/Vol] 1.4 g/dL Low 3.4-5.0 [facility] Comment on above: Performed By: #### E RTRP #### [facility] [address] [place], [place] [address] Glucose [Mass/Vol] 129 mg/dL High 70-99 [facility] Comment on above: Performed By: #### E RTRP #### [facility] [address] [place], [place] [address] Urea nitrogen [Mass/Vol] 71 mg/dL High 7-18 [facility] Comment on above: Performed By: #### E RTRP #### [facility] [address] [place], [place] [address] Calcium [Mass/Vol] 8.4 mg/dL Low 8.5-10.1 [facility] Comment on above: Performed By: #### E RTRP #### [facility] [address] [place], [place] [address] Chloride [Moles/Vol] 109 mmol/L High 98-107 [facility] Comment on above: Performed By: #### E RTRP #### [facility] [address] [place], [place] [address] Sodium [Moles/Vol] 138 mmol/L Normal 136-145 [facility] Comment on above: Performed By: #### E RTRP #### [facility] [address] [place], [place] [address] Ammoniaon 03-29-2019 Ammonia (P) [Mass/Vol] 27 umol/L Normal 11-32 [facility] Comment on above: Performed By: #### E RTRP #### [facility] [address] [place], [place] [address] Basic Panelon 03-29-2019 Creatinine [Mass/Vol] 1.77 mg/dL High 0.67-1.17 [facility] Comment on above: Performed By: #### G FR #### [facility] [address] [place], [place] [address] Anion gap [Moles/Vol] 10 mmol/L Normal 8-16 [facility] Comment on above: Performed By: #### G FR #### [facility] [address] [place], [place] [address] CO2 [Moles/Vol] 24 mmol/L Normal 21-32 [facility] Comment on above: Performed By: #### G FR #### [facility] [address] [place], [place] [address] Glucose [Mass/Vol] 120 mg/dL High 70-99 [facility] Comment on above: Performed By: #### G FR #### [facility] [address] [place], [place] [address] Urea nitrogen [Mass/Vol] 76 mg/dL High 7-18 [facility] Comment on above: Performed By: #### G FR #### [facility] [address] [place], [place] [address] Calcium [Mass/Vol] 8.7 mg/dL Normal 8.5-10.1 [facility] Comment on above: Performed By: #### G FR #### [facility] [address] [place], [place] [address] Chloride [Moles/Vol] 110 mmol/L High 98-107 [facility] Comment on above: Performed By: #### G FR #### [facility] [address] [place], [place] [address] Potassium [Moles/Vol] 4.8 mmol/L Normal 3.5-5.1 [facility] Comment on above: Performed By: #### G FR #### [facility] [address] [place], [place] [address] Sodium [Moles/Vol] 139 mmol/L Normal 136-145 [facility] Comment on above: Performed By: #### G FR #### [facility] [address] [place] [address] CASE MANAGEMon 03-29-2019 CASE MANAGEM HNO ID: [id number] Author: Radha (Rn) BISMARK Harris Service: ? Author Type: Registered Nurse Type: Care Mgt Progress Note Filed: 03/29/2019 10:55 AM Note Text: CARE MANAGEMENT PROGRESS NOTE SERVICE DATE: 03/29/2019 SERVICE TIME: 1054 LOS: 5 days Needs Prior to Discharge: IV Antibiotics Awaiting final antibiotic recommendations. Awaiting final sensitivities. Not likely to dc today. Set up with [facility] and [facility] when final antibiotics known. SIGNATURE: Radha Harris RN PATIENT NAME: Mauri Quinones DATE: March 29, 2019 TIME: 10:54 AM PAGER/CONTACT #: [phone] Normal [facility] CONSULT PROGon 03-29-2019 CONSULT PROG HNO ID: [id number] Author: Kavitha Fofana Service: Endocrinology Author Type: [...] management seeing pt GARRET (acute kidney injury) ([facility]) POA: Yes Assessment AND Plan: creat 1.77(1.86)(2.09)(2.33)(2.4 7); baseline 1.54; per renal CKD (chronic kidney disease) stage 3, GFR 30-59 ml/min ([facility]) POA: Yes Assessment AND Plan: creat 1.54 in 07/2018 Arteriosclerotic heart disease (ASHD) POA: Yes Assessment AND Plan: hx Hypertension, essential POA: Yes Assessment AND Plan: per caprice UTI (urinary tract infection) POA: Unknown Assessment AND Plan: on A/B Chronic combined systolic and diastolic CHF (congestive heart failure) ([facility]) POA: Yes Assessment AND Plan: hx SIGNATURE: Kavitha Fofana MD PATIENT NAME: Mauri Quinones DATE: March 29, 2019 TIME: 1:58 PM PAGER: [phone] Normal [facility] Hemogram/Diffon 03-29-2019 Abs Immature Grans 0.12 thou/cmm High 0.00-0.05 [facility] Comment on above: Performed By: #### G FR #### [place] [address] Abs Neut (ANC) 12.13 thou/cmm High 1.78-5.38 [facility] Comment on above: Performed By: #### G FR #### [place] [address] Abs. Baso 0.04 thou/cmm Normal 0.01-0.08 [facility] Comment on above: Result Comment: Smea r scanned; tech agrees with automated differential Performed By: #### G FR #### [place] [address] Abs. Kemper 1.48 thou/cmm High 0.30-0.82 [facility] Comment on above: Performed By: #### G FR #### [facility] [address] [place], [place] [address] Basophils/100 WBC (Bld) 0.3 % Normal [facility] Comment on above: Performed By: #### G FR #### [facility] [address] [place], [place] [address] Eosinophils (Bld) [#/Vol] 0.16 thou/cmm Normal 0.04-0.54 [facility] Comment on above: Performed By: #### G FR #### [facility] [address] [place], [place] [address] Eosinophils/100 WBC (Bld) 1.1 % Normal [facility] Comment on above: Performed By: #### G FR #### [facility] [address] [place], [place] [address] Immature Grans 0.80 % Normal [facility] Comment on above: Performed By: #### G FR #### [facility] [address] [place], [place] [address] Lymphocytes (Bld) [#/Vol] 0.76 thou/cmm Low 0.84-2.85 [facility] Comment on above: Performed By: #### G FR #### [facility] [address] [place], [place] [address] Lymphocytes/100 WBC (Bld) 5.2 % Normal [facility] Comment on above: Performed By: #### G FR #### [facility] [address] [place], [place] [address] Monocytes/100 WBC (Bld) 10.1 % Normal [facility] Comment on above: Performed By: #### G FR #### [facility] [address] [place], [place] [address] Seg Neutrophil 82.5 % Normal [facility] Comment on above: Performed By: #### G FR #### [facility] [address] [place], [place] [address] Erythrocyte distribution width (RBC) [Ratio] 13.7 % Normal 11.6-14.4 [facility] Comment on above: Performed By: #### G FR #### [facility] [address] [place] [address] Hematocrit (Bld) [Volume fraction] 30.9 % Low 40.1-51.0 [facility] Comment on above: Performed By: #### G FR #### [facility] [address] [place] [address] Hemoglobin (Bld) [Mass/Vol] 9.7 g/dL Low 13.7-17.5 [facility] Comment on above: Performed By: #### G FR #### [facility] [address] [place] [address] MCH (RBC) [Entitic mass] 29.3 pg Normal 25.7-32.2 [facility] Comment on above: Performed By: #### G FR #### [place] [address] MCHC (RBC) [Mass/Vol] 31.4 % Low 32.3-36.5 [facility] Comment on above: Performed By: #### G FR #### [facility] [address] [place] [address] MCV (RBC) [Entitic vol] 93.4 fL Normal 83.2-95.6 [facility] Comment on above: Performed By: #### G FR #### [facility] [address] [place] [address] Platelet mean volume (Bld) [Entitic vol] 8.6 fL Low 8.7-12.0 [facility] Comment on above: Performed By: #### G FR #### [facility] [address] [place] [address] Platelets (Bld) [#/Vol] 401 thou/cmm High 141-365 [facility] Comment on above: Performed By: #### G FR #### [facility] [address] [place] [address] RBC (Bld) [#/Vol] 3.31 mil/cmm Low 4.63-6.08 [facility] Comment on above: Performed By: #### G FR #### [facility] [address] [place], [place] [address] RDW SD 46.5 fl High 36.1-45.8 [facility] Comment on above: Performed By: #### G FR #### [facility] [address] [place], [place] [address] WBC (Bld) [#/Vol] 14.70 thou/cmm High 4.23-9.07 [facility] Comment on above: Performed By: #### G FR #### [facility] [address] [place], [place] [address] PROGRESSon 03-29-2019 PROGRESS HNO ID: [id number] Author: Rj Anderson Service: Nephrology Author Type: [...] 3-5 mL INTRAVENOUS q 12 H Vandana (Test Engineering Technician) Jatin 3 mL at 03/29/19 0849 aluminum-magnesium hydroxide-simethicone 200-200-20 mg/5 mL 30 mL (MAALOX,MYLANTA,MAG-AL PLUS) 30 mL ORAL DAILY PRN Vandana (Test Engineering Technician) Jatin docusate sodium 100 mg cap(s) (COLACE) 100 mg ORAL BID PRN Vandana (Test Engineering Technician) Jatin ipratropium-albuterol 3 mL nebulizer solution (DUONEB) 3 mL INHALATION q 4 H PRN Vandana (Test Engineering Technician) Jatin insulin lispro pen (rapid acting) (HumaLOG KWIKPEN) SUBCUTANEOUS w MEALS Kiera Midha 3 Units at 03/29/19 0850 calcium acetate 667 mg tab(s) (CALPHRON) 667 mg ORAL TID w MEALS Donavan (Res) MD Nahomi 667 mg at 03/29/19 0846 insulin detemir U-100 15 Units injection (long acting) (LEVEMIR) 15 Units SUBCUTANEOUS DAILY (8 AM) Kiera Midha 15 Units at 03/29/19 0847 No current [facility]-ordered outpatient medications on file. Vitals: BP [...] days prior to admission when he visited [place] ED . Pt was given Kayexalate. K is stable since admit. Avoid ACEI/ARB for now-see above. 4- Hyperphosphatemia: On Phoslo 667 mg one with each meal. Recheck P in am. 5- UTI: Enterococcal. ID following. On vancomycin. Please do not hesitate to contact me at [phone] if there is any question or concern. Lauren Mcintyre MD (Rj Anderson) [facility] PROGRESS HNO ID: [id number] Author: Dakota Mathias Service: Hospital Medicine Author [...] -- 03/24/19 0945 activity - mobilize patient ([place]) 03/24/19 0245 pneumatic compression stockings ([place] 03/24/19 0245 activity - mobilize patient ([place] VTE Prophylaxis: VTE prophylaxis appropriate Disposition: Home with [facility] Plan of care discussed with: Patient, Family/Significant Other: son and RN SIGNATURE: Dakota Mathias MD PATIENT NAME: Mauri Quinones DATE: March 29, 2019 TIME: 1:34 PM PAGER: [phone] [facility] PROGRESS HNO ID: [id number] Author: Cirilo Vitale III Service: Infectious Disease [...] 3-5 mL INTRAVENOUS q 12 H Vandana (Test Engineering Technician) Jatin 3 mL at 03/29/19 0849 - aluminum-magnesium hydroxide-simethicone 200-200-20 mg/5 mL 30 mL (MAALOX,MYLANTA,MAG-AL PLUS) 30 mL ORAL DAILY PRN Vandana (Test Engineering Technician) Jatin - docusate sodium 100 mg cap(s) (COLACE) 100 mg ORAL BID PRN Vandana (Test Engineering Technician) Jatin - ipratropium-albuterol 3 mL nebulizer solution (DUONEB) 3 mL INHALATION q 4 H PRN Vandana (Test Engineering Technician) Jatin - insulin lispro pen (rapid acting) [...] 29, 2019 TIME: 11:49 AM PAGER/CONTACT #: [phone] [facility] THERAPY NTon 03-29-2019 THERAPY NT HNO ID: [id number] Author: Isabela (Pt) Flori Service: Physical Therapy Author Type: Physical Therapist Type: Therapy (PT/OT/Speech/Resp) Filed: 03/29/2019 11:19 AM Note Text: Physical Therapy Treatment (re-evaluation) SERVICE DATE: 03/29/2019 SERVICE TIME: 1030 to 1055 ROOM: [place] [address] Recommended Discharge Disposition: Acute rehab Recommended Discharge [...] Patient;Family TREATMENT INTERVENTIONS: Interventions Provided: Therapeutic Activity (95936);Re-evaluation $ Reevaluation (28379) Billed Units: 1 unit Reviewed chart, updated goals, POC and D/C rec as needed Therapeutic Activity (39708) Treatment Minutes: 15 1 unit Skilled Intervention(s): Educated pt and jose david Ambrosio on role of PT in acute care--discussed change in POC, goals and D/C rec--rec acute rehab at [facility] Educated on safety and fall prevention--use call [...] March 29, 2019 TIME: 11:07 AM Normal [facility] TSH, 3rd generationon 2018 TSH, 3rd generation 2.590 uIU/mL Normal 0.358-3.740 [facility] Comment on above: Performed By: #### E RTRP #### [facility] [address] [place] [address] Basic Panelon 03-28-2019 Creatinine [Mass/Vol] 1.86 mg/dL High 0.67-1.17 [facility] Comment on above: Performed By: #### G FR #### [facility] [address] [place] [address] Anion gap [Moles/Vol] 12 mmol/L Normal 8-16 [facility] Comment on above: Performed By: #### G FR #### [facility] [address] [place], [place] [address] CO2 [Moles/Vol] 21 mmol/L Normal 21-32 [facility] Comment on above: Performed By: #### G FR #### [facility] [address] [place], [place] [address] Glucose [Mass/Vol] 114 mg/dL High 70-99 [facility] Comment on above: Performed By: #### G FR #### [facility] [address] [place], [place] [address] Urea nitrogen [Mass/Vol] 72 mg/dL High 7-18 [facility] Comment on above: Performed By: #### G FR #### [facility] [address] [place], [place] [address] Calcium [Mass/Vol] 9.1 mg/dL Normal 8.5-10.1 [facility] Comment on above: Performed By: #### G FR #### [facility] [address] [place] [address] Chloride [Moles/Vol] 109 mmol/L High 98-107 [facility] Comment on above: Performed By: #### G FR #### [facility] [address] [place] [address] Potassium [Moles/Vol] 4.9 mmol/L Normal 3.5-5.1 [facility] Comment on above: Performed By: #### G FR #### [place] [address] Sodium [Moles/Vol] 137 mmol/L Normal 136-145 [facility] Comment on above: Performed By: #### G FR #### [facility] [address] [place] [address] CONSULTon 03-28-2019 CONSULT HNO ID: [id number] Author: Cirilo Vitale III Service: Infectious Disease [...] Diagnosis Date - GARRET (acute kidney injury) ([facility]) 03/24/2019 - Ankylosing spondylitis ([facility]) - CAD (coronary artery disease) - Cellulitis - Chronic combined systolic and diastolic CHF (congestive heart failure) ([facility]) 03/24/2019 - CKD (chronic kidney disease) stage 3, GFR 30-59 ml/min ([facility]) 03/24/2019 - Constipation - Diabetes ([facility]) - Gout - High phosphate levels 03/24/2019 - Hx of fracture multiple bones - Hyperkalemia 03/24/2019 - Hypoalbuminemia 03/24/2019 - Hyponatremia 03/24/2019 - Hypoxia 03/24/2019 - NSTEMI (non-ST elevated myocardial infarction) ([facility]) 03/12/2017 [facility] admit - Osteoarthritis FAMILY HISTORY Problem [...] file Gets together: Not on file Attends nondenominational service: Not on file Active member of [...] 3-5 mL INTRAVENOUS q 12 H Vandana (Test Engineering Technician) Jatin 3 mL at 03/28/192024 - aluminum-magnesium hydroxide-simethicone 200-200-20 mg/5 mL 30 mL (MAALOX,MYLANTA,MAG-AL PLUS) 30 mL ORAL DAILY PRN Vandana (Test Engineering Technician) Jatin - docusate sodium 100 mg cap(s) (COLACE) 100 mg ORAL BID PRN Vandana (Test Engineering Technician) Jatin - ipratropium-albuterol 3 mL nebulizer solution (DUONEB) 3 mL INHALATION q 4 H PRN Vandana (Test Engineering Technician) Jatin - insulin lispro pen (rapid acting) [...] of Chronic Renal Failure, Stage 3 (Moderate) ([facility] [place] [facility]) Acute On Chronic Diastolic Congestive Heart Failure ([facility] [place] [facility]) Recurrent Right Pleural Effusion Pvd (Peripheral Vascular Disease) ([facility] [place] [facility]) Altered Mental Status Uti (Urinary Tract Infection) Chronic Combined Systolic and Diastolic Chf (Congestive Heart Failure) ([facility] [place] [facility]) Hyperkalemia Hypoxia Hypoalbuminemia Garret (Acute Kidney Injury) ([facility] [place] [facility]) Ckd (Chronic Kidney Disease) Stage 3, Gfr 30-59 Ml/Min ([facility] [place] [facility]) High Phosphate Levels Hyponatremia Review of Systems [...] 03/23/2019 5.5 5.0 - 8.0 Final Specific [place], [place] Date Value Ref Range Status 03/23/2019 [...] 28, 2019 TIME: 10:33 PM PAGER/CONTACT #: [phone] [facility] CONSULT PROGon 03-28-2019 CONSULT PROG HNO ID: [id number] Author: Kiera Gonzalez Service: Endocrinology Author Type: Physician Type: Consult Progress Note Filed: 03/28/2019 7:42 AM Note Text: ENDOCRINOLOGY CONSULT PROGRESS NOTE SERVICE DATE: 03/28/2019 SERVICE TIME: 7:20 AM Subjective INTERVAL HPI: Following for DM type 2. Adm with severe neck and B/L shoulder pain. Has GARRTE. Notes and orders reviewed. Diet: DIET RENAL [...] management seeing pt GARRET (acute kidney injury) ([facility]) POA: Yes Assessment AND Plan: creat 1.86(2.09)(2.33)(2.47); baseline 1.54; per renal CKD (chronic kidney disease) stage 3, GFR 30-59 ml/min ([facility]) POA: Yes Assessment AND Plan: creat 1.54 in 07/2018 Arteriosclerotic heart disease (ASHD) POA: Yes Assessment AND Plan: hx Hypertension, essential POA: Yes Assessment AND Plan: per caprice UTI (urinary tract infection) POA: Unknown Assessment AND Plan: on A/B Chronic combined systolic and diastolic CHF (congestive heart failure) ([facility]) POA: Yes Assessment AND Plan: hx Dr Fofana #[id number] will cover on 03/29 and 03/30. SIGNATURE: Kiera Gonzalez MD PATIENT NAME: Mauri Quinones DATE: March 28, 2019 TIME: 7:42 AM PAGER: [phone] Normal [facility] Cult Urineon 03-28-2019 Cult Urine Test performed at [facility] No growth <1,000 CFU/ml. Normal [facility] Comment on above: Performed By: #### G FR #### [facility] [address] [place], [place] [address] Lactic Acidon 03-28-2019 Lactate [Moles/Vol] 0.6 mmol/L Normal 0.4-2.0 [facility] Comment on above: Performed By: #### G FR #### [address] [place], [place] [address] PROGRESSon 03-28-2019 PROGRESS HNO ID: [id number] Author: Ra Alcala Service: Hospital Medicine Author Type: Physician Type: Progress Notes Filed: 03/28/2019 2:22 PM Note Text: DEPARTMENT OF HOSPITAL MEDICINE PROGRESS NOTE SERVICE DATE: 03/28/2019 SERVICE TIME: 2:13 PM Hospital Medicine/Primary Attending: Ra Alcala MD NIGHT AND WEEKEND COVERAGE: After 7pm please page [phone] SUBJECTIVE: F/u UTI. No CP SOB NVD. [...] units Sub Q BID Disposition: Home with [facility] and [facility] Care Facility Plan of care discussed with: Patient SIGNATURE: Ra Alcala MD PATIENT NAME: Mauri Quinones DATE: March 28, 2019 TIME: 2:13 PM PAGER/CONTACT #: My Pager Normal [facility] PROGRESS HNO ID: [id number] Author: Nati Tong) CHELSI Snyder Service: Neurosurgery Author Type: Physician Clinical Education Consultant Type: Progress Notes Filed: 03/28/2019 1:48 PM [...] 03/27/19699 - 03/28/1965803/28/19699 - 03/29/19 0659 Shift 2319-6867 5722-1664 7407-1486 24 Hour Total 8066-7537 6360-9549 9673-8732 24 Hour Total INTAKE PO 360 120 [...] systolic and diastolic CHF (congestive heart failure) ([facility]) 03/24/2019 - Hyperkalemia 03/24/2019 - Hypoxia 03/24/2019 - Hypoalbuminemia 03/24/2019 - GARRET (acute kidney injury) ([facility]) 03/24/2019 - CKD (chronic kidney disease) stage 3, GFR 30-59 ml/min ([facility]) 03/24/2019 - High phosphate levels 03/24/2019 - Hyponatremia 03/24/2019 - Anemia of chronic renal failure, stage 3 (moderate) ([facility]) 03/05/2018 - Lower leg edema 01/22/2018 Overview [...] 04/10/[address] Pate 03/14/17 discharged [facility]: acute systolic heart failure. 2-D echocardiography [...] complication, with long-term current use of insulin ([facility]) 03/21/2016 Overview Note: 09/04/17 glucose 233, BUN [...] March 28, 2019 TIME: 1:44 PM Pager: [phone] [facility] PROGRESS HNO ID: [id number] Author: Song Gutierrez Service: Nephrology Author Type: Nurse Practitioner Type: Progress Notes Filed: 03/28/2019 10:33 AM Note Text: -- Attestation signed by Daniel Mcfadden MD at 03/28/2019 12:03 PM Renal attending: I have seen and examined the patient myself. I agree with BOX BRANDER Song Gutierrez note in addition the changes [...] days prior to admission when he visited [place] ED . Pt was given Kayexalate. K is wnl Avoid ACEI/ARB. Renal diet 4- Hyperphosphatemia: continue Phoslo 667 mg one with each meal. 5- UTI: On ceftriaxone 1g IV daily Renal team will continue to follow Please call if any question at [phone] Daniel Mcfadden M.D -- Nephrology Progress Note [...] 3-5 mL INTRAVENOUS q 12 H Vandana (Test Engineering Technician) Jatin 3 mL at 03/27/19 203 aluminum-magnesium hydroxide-simethicone 200-200-20 mg/5 mL 30 mL (MAALOX,MYLANTA,MAG-AL PLUS) 30 mL ORAL DAILY PRN Vandana (Test Engineering Technician) Jatin docusate sodium 100 mg cap(s) (COLACE) 100 mg ORAL BID PRN Vandana (Test Engineering Technician) Jatin ipratropium-albuterol 3 mL nebulizer solution (DUONEB) 3 mL INHALATION q 4 H PRN Vandana (Test Engineering Technician) Jatin insulin lispro pen (rapid acting) (HumaLOG KWIKPEN) SUBCUTANEOUS w MEALS Kiera Midha 1 Units at 03/25/19 1139 calcium acetate 667 mg tab(s) (CALPHRON) 667 mg ORAL TID w MEALS Donavan (Res) MD Nahomi 667 mg at 03/27/19 1645 insulin detemir U-100 15 Units injection (long acting) (LEVEMIR) 15 Units SUBCUTANEOUS DAILY (8 AM) Kiera Midha 15 Units at 03/27/19 0633 No current [facility]-ordered outpatient medications on file. Vitals: BP [...] monitor phos Avoid nephrotoxins overdiuresis Song Gutierrez, LIQUIFIED NATURAL GAS SPECIALIST-ANGIOGRAPHER Normal [facility] THERAPY NTon 03-28-2019 THERAPY NT HNO ID: [id number] Author: Elizabeth Tom) Kevin Service: Physical Therapy Author Type: Nurse Practitioner Adult Type: Therapy (PT/OT/Speech/Resp) Filed: 03/28/2019 8:40 AM Note Text: -- Attestation signed by Vinny MarquezPt) JD Benitez at 03/28/2019 3:59 PM I reviewed and agree with the documentation corresponding to this therapy visit. SIGNATURE: Vinny Benitez PT DATE: March 28, 2019 TIME: 3:59 PM -- PHYSICAL THERAPY MISSED VISIT SERVICE DATE: 03/28/2019 SERVICE TIME: 0834 to 0834 ROOM: [place] [address] Attempted Treatment. Patient not seen due to Declined. Reports in too much pain. Patient incontinent of bladder, staff notified for hygiene and pain medication. Will continue to attempt as appropriate. SIGNATURE: Elizabeth Brown PTA PATIENT NAME: Mauri Quinones DATE: March 28, 2019 TIME: 8:39 AM [facility] CASE MANAGEMon 03-27-2019 CASE MANAGEM HNO ID: [id number] Author: Dagmar Guzman) BISMARK Chicas Service: ? [...] 27, 2019 TIME: 12:16 PM PAGER/CONTACT #: [phone] [facility] CONSULT PROGon 03-27-2019 CONSULT PROG HNO ID: [id number] Author: Kiera Gonzalez Service: Endocrinology Author Type: [...] complication, with long-term current use of insulin ([facility]) POA: Yes Assessment AND Plan: 12-15 ears [...] hx ankylosing spondylitis GARRET (acute kidney injury) ([facility]) POA: Yes Assessment AND Plan: creat 2.09(2.33)(2.47); per renal CKD (chronic kidney disease) stage 3, GFR 30-59 ml/min ([facility]) POA: Yes Assessment AND Plan: creat 1.54 in 07/2018 Arteriosclerotic heart disease (ASHD) POA: Yes Assessment AND Plan: hx Hypertension, essential POA: Yes Assessment AND Plan: per caprice UTI (urinary tract infection) POA: Unknown Assessment AND Plan: on A/B Chronic combined systolic and diastolic CHF (congestive heart failure) ([facility]) POA: Yes Assessment AND Plan: hx SIGNATURE: Kiera Gonzalez MD PATIENT NAME: Mauri Quinones DATE: March 27, 2019 TIME: 8:13 AM PAGER: [phone] Normal [facility] PROGRESSon 03-27-2019 PROGRESS HNO ID: [id number] Author: Bravo Lamb) Ervin Service: Nephrology Author [...] 7.324 (L) 7.350 - 7.450 Final Specific [place], [place] Date Value Ref Range Status 03/23/2019 [...] Mueller MD PATIENT NAME: Mauri Quinones PAGER: [phone] [facility] PROGRESS HNO ID: [id number] Author: Lara Feliciano Service: Pain Management Author Type: Physician Type: Progress Notes Filed: 03/27/2019 9:42 AM Note Text: Mauri Quinones [id number] PAIN MANAGEMENT TEAM PAIN DIAGNOSIS: Neck [...] chronic pain 2/2 OA, ankylosing spondylitis, recent [place] admission neck pain (imaging reported no acute [...] no bacteria, +mod Hb, + 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 He lives with his and dtr; ambulates with a walker or cane. He does not use tobacco, ETOH or illicit meds. Review of [place] Automated RX Reporting System shows Summary Total Prescriptions: 21 Total Prescribers: 9 Total Pharmacies: 3 Fill Date ID Written Drug Qty Days Prescriber Rx # Pharmacy Refill Daily Dose * Pymt Type [facility] 03/22/2019 2 03/22/2019 Hydrocodone-Acetamin 5-325 MG 30 [address] [id number] [place] (1580) 0 37.50 [facility] [place] 12/04/2018 1 02/04/2018 Gabapentin 300 MG Capsule 180 90 Ma Bar [id number] [place] (1533) 3 [facility] [place] 09/12/2018 1 02/04/2018 Gabapentin 300 MG Capsule 180 90 Ma Bar [id number] [place] (1327) 2 [facility] [place] 09/02/2018 1 08/29/2018 Hydrocodone-Acetamin 5-325 MG 42 7 Mi Lyk [id number] [facility] (1327) 0 30.00 [facility] [place] 08/17/2018 1 08/08/2018 Hydrocodone-Acetamin 5-325 MG 42 7 Ja Gli [id number] [facility] (1327) 0 30.00 [facility] [place] 07/27/2018 1 07/23/2018 Hydrocodone-Acetamin 5-325 MG 42 7 Je Dul [id number] [facility] (1327) 0 30.00 [facility] [...] 3-5 mL INTRAVENOUS q 12 H Vandana (Test Engineering Technician) Jatin 3 mL at 03/27/19 0735 - aluminum-magnesium hydroxide-simethicone 200-200-20 mg/5 mL 30 mL (MAALOX,MYLANTA,MAG-AL PLUS) 30 mL ORAL DAILY PRN Vandana (Test Engineering Technician) Jatin - docusate sodium 100 mg cap(s) (COLACE) 100 mg ORAL BID PRN Vandana (Test Engineering Technician) Jatin - ipratropium-albuterol 3 mL nebulizer solution [...] HISTORY PAST MEDICAL HISTORY Diagnosis Date - AGRRET (acute kidney injury) ([facility]) 03/24/2019 - Ankylosing spondylitis ([facility]) - CAD (coronary artery disease) - Cellulitis - Chronic combined systolic and diastolic CHF (congestive heart failure) ([facility]) 03/24/2019 - CKD (chronic kidney disease) stage 3, GFR 30-59 ml/min ([facility]) 03/24/2019 - Constipation - Diabetes ([facility]) - Gout - High phosphate levels 03/24/2019 - Hx of fracture multiple bones - Hyperkalemia 03/24/2019 - Hypoalbuminemia 03/24/2019 - Hyponatremia 03/24/2019 - Hypoxia 03/24/2019 - NSTEMI (non-ST elevated myocardial infarction) ([facility]) 03/12/2017 [facility] admit - Osteoarthritis PAST SURGICAL HISTORY [...] of Chronic Renal Failure, Stage 3 (Moderate) ([facility] [place] [facility]) Acute On Chronic Diastolic Congestive Heart Failure ([facility]) Recurrent Right Pleural Effusion Pvd (Peripheral Vascular Disease) ([facility]) Altered Mental Status Uti (Urinary Tract Infection) Chronic Combined Systolic and Diastolic Chf (Congestive Heart Failure) ([facility]) Hyperkalemia Hypoxia Hypoalbuminemia Garret (Acute Kidney Injury) ([facility]) Ckd (Chronic Kidney Disease) Stage 3, Gfr 30-59 Ml/Min ([facility]) High Phosphate Levels Hyponatremia Diet Orders Placed This Encounter DIET RENAL LAST BOWEL MOVEMENT Number of BMs: 1 (03/26/192027) Prior to Admission Opiate Status Episodic Outpatient Pain Management: No. Rx at D/C: No Rx on chart: No OARRS: see above- most recent 03/22 Milton 5/325 # 30 (4ds); 12/04 Neurontin 300mg # 180 (90ds) Pain Regimen/Notes (Opiate use last 24 hrs): APAP 650mg po q6h prn x 0 Neurontin 200 mg ?1 Baclofen 5 mg ?1 Milton 5/325?1 PLAN: Pt admitted with worsening neck and bilateral shoulder pain; defer diagnostic w/u to primary team. Need to review recent MRI from [place]. Appreciate neurosurgery evaluation. No neurologic deficits. Probable soft tissue injury to his neck and shoulders Pt with hx chronic multifactorial pain 2/2 OA, anklylosing spondylitis and DM neuropathy Neurontin 200mg po qd (reduced dose with CKD 3/4; baseline creatinine 2.3?2.4 APAP 650mg po q6h prn Continue Milton 5/325 one po q4h prn mod/severe pain- minimal use Baclofen 5mg po tid prn Appreciate PT evaluation; recommendation for home discharge Patient will not need prescription. Stable for discharge from pain standpoint. Will sign off; our team available as needed Lara Feliciano MD [facility] PROGRESS HNO ID: [id number] Author: Ra Alcala Service: Hospital Medicine Author Type: Physician Type: Progress Notes Filed: 03/27/2019 9:27 AM Note Text: DEPARTMENT OF HOSPITAL MEDICINE PROGRESS NOTE SERVICE DATE: 03/27/2019 SERVICE TIME: 9:25 AM Hospital Medicine/Primary Attending: Ra Alcala MD NIGHT AND WEEKEND COVERAGE: After 7pm please page [phone] SUBJECTIVE: F/u neck pain. No CP SOB [...] units Sub Q BID Disposition: Home with [facility] Plan of care discussed with: Patient SIGNATURE: Ra Alcala MD PATIENT NAME: Mauri Quinones DATE: March 27, 2019 TIME: 9:25 AM PAGER/CONTACT #: My Pager Normal [facility] Renal Panelon 03-27-2019 Creatinine [Mass/Vol] 2.09 mg/dL High 0.67-1.17 [facility] Comment on above: Performed By: #### G FR #### [facility] [address] [place], [place] [address] Phosphate [Mass/Vol] 4.8 mg/dL Normal 2.5-4.9 [facility] Comment on above: Performed By: #### G FR #### [facility] [address] [place], [place] [address] Albumin [Mass/Vol] 1.5 g/dL Low 3.4-5.0 [facility] Comment on above: Performed By: #### G FR #### [facility] [address] [place], [place] [address] Anion gap [Moles/Vol] 12 mmol/L Normal 8-16 [facility] Comment on above: Performed By: #### G FR #### [facility] [address] [place], [place] [address] CO2 [Moles/Vol] 23 mmol/L Normal 21-32 [facility] Comment on above: Performed By: #### G FR #### [facility] [address] [place], [place] [address] Glucose [Mass/Vol] 78 mg/dL Normal 70-99 [facility] Comment on above: Performed By: #### G FR #### [facility] [address] [place], [place] [address] Calcium [Mass/Vol] 8.7 mg/dL Normal 8.5-10.1 [facility] Comment on above: Performed By: #### G FR #### [facility] [address] [place], [place] [address] Urea nitrogen [Mass/Vol] 79 mg/dL High 7-18 [facility] Comment on above: Performed By: #### G FR #### [facility] [address] [place], [place] [address] Chloride [Moles/Vol] 107 mmol/L Normal 98-107 [facility] Comment on above: Performed By: #### G FR #### [facility] [address] [place], [place] [address] Potassium [Moles/Vol] 5.1 mmol/L Normal 3.5-5.1 [facility] Comment on above: Performed By: #### G FR #### [facility] [address] [place], [place] [address] Sodium [Moles/Vol] 137 mmol/L Normal 136-145 [facility] Comment on above: Performed By: #### G FR #### [address] [address] CONSULTon 03-26-2019 CONSULT HNO ID: [id number] Author: Anibal Sexton Service: Neurosurgery Author Type: Physician Type: Consults Filed: 03/26/2019 7:52 AM Note Text: CONSULT: NEUROSURGERY SERVICE SERVICE DATE: 03/26/2019 SERVICE TIME: 7:38 AM' REASON FOR CONSULT: Neck pain REQUESTING PHYSICIAN: Hospitalist PRIMARY CARE PHYSICIAN: Aditya Davis PA-C Subjective Mr. Quinones is a 63 year old male who presents for neck pain. ! 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 No weakness or numbness. History of spinal ankylosing spondylitis. Had MRI at [facility] that was not sent with him and is not available for review. FUNCTIONAL STATUS: Independent PAST MEDICAL HISTORY Diagnosis Date - GARRET (acute kidney injury) ([facility]) 03/24/2019 - Ankylosing spondylitis ([facility]) - CAD (coronary artery disease) - Cellulitis - Chronic combined systolic and diastolic CHF (congestive heart failure) ([facility]) 03/24/2019 - CKD (chronic kidney disease) stage 3, GFR 30-59 ml/min ([facility]) 03/24/2019 - Constipation - Diabetes ([facility]) - Gout - High phosphate levels 03/24/2019 - Hx of fracture multiple bones - Hyperkalemia 03/24/2019 - Hypoalbuminemia 03/24/2019 - Hyponatremia 03/24/2019 - Hypoxia 03/24/2019 - NSTEMI (non-ST elevated myocardial infarction) ([facility]) 03/12/2017 [facility] admit - Osteoarthritis PAST SURGICAL HISTORY [...] reviewed for today's visit: [facility] or [facility] but ankylosing spondylitis. We need images sent for review. Impression/Recommendations Active Problems: Uncontrolled type 2 diabetes mellitus without complication, with long-term current use of insulin ([facility]) POA: Yes Assessment AND Plan: Arteriosclerotic heart disease (ASHD) POA: Yes Assessment AND Plan: Hypertension, essential POA: Yes Assessment AND Plan: Lower leg edema POA: Yes Assessment AND Plan: Anemia of chronic renal failure, stage 3 (moderate) ([facility]) POA: Yes Assessment AND Plan: Altered mental status POA: Yes Assessment AND Plan: UTI (urinary tract infection) POA: Unknown Assessment AND Plan: Chronic combined systolic and diastolic CHF (congestive heart failure) ([facility]) POA: Yes Assessment AND Plan: Hyperkalemia POA: Yes Assessment AND Plan: Hypoxia POA: Yes Assessment AND Plan: Hypoalbuminemia POA: Yes Assessment AND Plan: GARRET (acute kidney injury) ([facility]) POA: Yes Assessment AND Plan: CKD (chronic kidney disease) stage 3, GFR 30-59 ml/min ([facility]) POA: Yes Assessment AND Plan: High phosphate [...] March 26, 2019 TIME: 7:37 AM PAGER: [phone] Normal [facility] CONSULT PROGon 03-26-2019 CONSULT PROG HNO ID: [id number] Author: Kiera Gonzalez Service: Endocrinology Author Type: [...] complication, with long-term current use of insulin ([facility]) POA: Yes Assessment AND Plan: 12-15 ears [...] kidney disease) stage 3, GFR 30-59 ml/min ([facility]) POA: Yes Assessment AND Plan: creat 1.54 in 07/2018 Arteriosclerotic heart disease (ASHD) POA: Yes Assessment AND Plan: hx Hypertension, essential POA: Yes Assessment AND Plan: per caprice UTI (urinary tract infection) POA: Unknown Assessment AND Plan: on A/B Chronic combined systolic and diastolic CHF (congestive heart failure) ([facility]) POA: Yes Assessment AND Plan: hx SIGNATURE: Kiera Gonzalez MD PATIENT NAME: Mauri Quinones DATE: March 26, 2019 TIME: 8:01 AM PAGER: [phone] Normal [facility] PROGRESSon 03-26-2019 PROGRESS HNO ID: [id number] Author: Ra Alcala Service: Hospital Medicine Author Type: Physician Type: Progress Notes Filed: 03/27/2019 9:28 AM Note Text: DEPARTMENT OF HOSPITAL MEDICINE PROGRESS NOTE SERVICE DATE: 03/26/2019 SERVICE TIME: 2:54 PM Hospital Medicine/Primary Attending: Ra Alcala MD NIGHT AND WEEKEND COVERAGE: After 7pm please page [phone] SUBJECTIVE: F/u Neck pain. No CP SOB [...] units Sub Q BID Disposition: Home with [facility] Plan of care discussed with: Patient SIGNATURE: Ra Alcala MD PATIENT NAME: Mauri Quinones DATE: March 26, 2019 TIME: 2:54 PM PAGER/CONTACT #: My Pager Normal [facility] PROGRESS HNO ID: [id number] Author: Daniel Mcfadden MD Service: Nephrology Author [...] hyperkalemia 2 days ago when he visited [place] ED . Pt was given Kayexalate. K is wnl on 03/25 lab Avoid ACEI/ARB. Renal diet ? 4- Hyperphosphatemia: continue Phoslo 667 mg one with each meal ? 5- UTI: On ceftriaxone 1g IV daily Renal team will continue to follow Please call if any question at [phone] Daniel Mcfadden M.D [facility] PROGRESS HNO ID: [id number] Author: Lara Feliciano Service: Pain Management Author Type: Physician Type: Progress Notes Filed: 03/26/2019 9:29 AM Note Text: Mauri Quinones [id number] PAIN MANAGEMENT TEAM PAIN DIAGNOSIS: Neck [...] no bacteria, +mod Hb, + 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 He lives with his and dtr; ambulates with a walker or cane. He does not use tobacco, ETOH or illicit meds. Review of [place] Automated RX Reporting System shows Summary Total Prescriptions: 21 Total Prescribers: 9 Total Pharmacies: 3 Fill Date ID Written Drug Qty Days Prescriber Rx # Pharmacy Refill Daily Dose * Pymt Type [facility] 03/22/2019 2 03/22/2019 Hydrocodone-Acetamin 5-325 MG 30 4 Ma Ter [id number] [facility] (0208) 0 37.50 [facility] [place] 12/04/2018 1 02/04/2018 Gabapentin 300 MG Capsule 180 90 Ma Bar [id number] [place] (9069) 3 [facility] [place] 09/12/2018 1 02/04/2018 Gabapentin 300 MG Capsule 180 90 Ma Bar [id number] [place] (1327) 2 [facility] [place] 09/02/2018 1 08/29/2018 Hydrocodone-Acetamin 5-325 MG 42 7 Mi Lyk [id number] [facility] (1327) 0 30.00 [facility] [place] 08/17/2018 1 08/08/2018 Hydrocodone-Acetamin 5-325 MG 42 7 Ja Gli [id number] [facility] (1327) 0 30.00 [facility] [place] 07/27/2018 1 07/23/2018 Hydrocodone-Acetamin 5-325 MG 42 7 Je Dul [id number] [facility] (1327) 0 30.00 [facility] [...] DAILY Daniel Mcfadden MD 40 mg at 03/26/19 0808 [...] (XALATAN) 1 Drop BOTH EYES AT BEDTIME Dnate Myers 1 Drop at 03/25/19 2138 - [...] 3-5 mL INTRAVENOUS q 12 H Vandana (Test Engineering Technician) Jatin 3 mL at 03/26/19 0808 - aluminum-magnesium hydroxide-simethicone 200-200-20 mg/5 mL 30 mL (MAALOX,MYLANTA,MAG-AL PLUS) 30 mL ORAL DAILY PRN Vandana (Test Engineering Technician) Jatin - docusate sodium 100 mg cap(s) (COLACE) 100 mg ORAL BID PRN Vandana (Test Engineering Technician) Jatin - ipratropium-albuterol 3 mL nebulizer solution (DUONEB) 3 mL INHALATION q 4 H PRN Vandana (Test Engineering Technician) Jatin - insulin lispro pen (rapid acting) [...] (LEVEMIR) 15 Units SUBCUTANEOUS DAILY (8 AM) [facility] 15 Units at 03/26/19 0809 Medications [...] Diagnosis Date - GARRET (acute kidney injury) ([facility]) 03/24/2019 - Ankylosing spondylitis ([facility]) - CAD (coronary artery disease) - Cellulitis - Chronic combined systolic and diastolic CHF (congestive heart failure) ([facility]) 03/24/2019 - CKD (chronic kidney disease) stage 3, GFR 30-59 ml/min ([facility]) 03/24/2019 - Constipation - Diabetes ([facility]) - Gout - High phosphate levels 03/24/2019 - Hx of fracture multiple bones - Hyperkalemia 03/24/2019 - Hypoalbuminemia 03/24/2019 - Hyponatremia 03/24/2019 - Hypoxia 03/24/2019 - NSTEMI (non-ST elevated myocardial infarction) ([facility]) 03/12/2017 [facility] admit - Osteoarthritis PAST SURGICAL HISTORY [...] of Chronic Renal Failure, Stage 3 (Moderate) ([facility]) Acute On Chronic Diastolic Congestive Heart Failure ([facility]) Recurrent Right Pleural Effusion Pvd (Peripheral Vascular Disease) ([facility]) Altered Mental Status Uti (Urinary Tract Infection) Chronic Combined Systolic and Diastolic Chf (Congestive Heart Failure) ([facility]) Hyperkalemia Hypoxia Hypoalbuminemia Garret (Acute Kidney Injury) ([facility]) Ckd (Chronic Kidney Disease) Stage 3, Gfr 30-59 Ml/Min ([facility]) High Phosphate Levels Hyponatremia Diet Orders Placed This Encounter DIET RENAL LAST BOWEL MOVEMENT Prior to Admission Opiate Status Episodic Outpatient Pain Management: No. Rx at D/C: No Rx on chart: No OARRS: see above- most recent 03/22 Milton 5/325 # 30 (4ds); 12/04 Neurontin 300mg # 180 (90ds) Pain Regimen/Notes (Opiate use last 24 hrs): APAP 650mg po q6h prn x 2 Neurontin 200 mg ?1 Flexeril 5mg tid prn xone Milton 5/325?1 PLAN: Pt admitted with worsening neck and bilateral shoulder pain; defer diagnostic w/u to primary team. Need to review recent MRI from [place]. Appreciate neurosurgery evaluation. No neurologic deficits. Probable soft tissue injury to his neck and shoulders Pt with hx chronic multifactorial pain 2/2 OA, anklylosing spondylitis and DM neuropathy Neurontin 200mg po qd (reduced dose with CKD 3/4; baseline creatinine 2.3?2.4 APAP 650mg po q6h prn Continue Milton 5/325 one po q4h prn mod/severe pain Baclofen 5mg po tid prn Disposition pending Lara Feliciano MD [facility] THERAPY NTon 03-26-2019 THERAPY NT HNO ID: [id number] Author: Melvin (PtAnette Duval Service: Physical Therapy Author Type: Physical Therapist Type: Therapy (PT/OT/Speech/Resp) Filed: 03/26/2019 11:12 AM Note Text: Physical Therapy Treatment SERVICE DATE: 03/26/2019 SERVICE TIME: 1038 to 1101 ROOM: [id number] Recommended Discharge Disposition: Home Recommended Discharge [...] Patient TREATMENT INTERVENTIONS: Interventions Provided: Therapeutic Exercise (84678);Therapeutic Activity (66655);Gait Training (78834) Therapeutic Exercise (76088) Treatment Minutes: 8 1 unit Skilled Intervention(s): Instruction in therapeutic exercise gentle shoulder rolls fwd and back, and scapular retractions (with tactile cues for moving scapula), head supported gentle rotation and side bend through pain free ROM Verbal and tactile cuing provided . Therapeutic Activity (34068) Treatment Minutes: 7 0 units Skilled Intervention(s): Education with donning cervical collar. Educated on sup to sit transfer. Gait Training (58564) Treatment Minutes: 8 1 unit Skilled Intervention(s): [...] March 26, 2019 TIME: 11:06 AM Normal [facility] CASE MANAGEMon 03-25-2019 CASE MANAGEM HNO ID: [id number] Author: Dagmar (Bismark) BISMARK Chicas Service: ? Author Type: Registered Nurse Type: Care Mgt Progress Note Filed: 03/25/2019 11:17 AM Note Text: CARE MANAGEMENT PROGRESS NOTE SERVICE DATE: 03/25/2019 SERVICE TIME: 11:16 AM LOS: 1 day Needs Prior to Discharge: None Spoke with patient Reviewed evals both rec home at [facility]. Pt in cervical collar. Noted dm ed restarted on insulin and pt denies need for skilled nsg/home care at [facility] --has been on insulin in past. Dc plan return home. SIGNATURE: Dagmar Chicas RN PATIENT NAME: Mauri Quinones DATE: March 25, 2019 TIME: 11:15 AM PAGER/CONTACT #: [phone] [facility] CONSULTon 03-25-2019 CONSULT HNO ID: [id number] Author: Lara Feliciano Service: Pain Management Author Type: Physician Type: Consults Filed: 03/25/2019 5:06 PM Note Text: Mauri Quinones [id number] PAIN MANAGEMENT TEAM PAIN DIAGNOSIS: Neck and bilateral shoulder pain, Hx lumbar ankylosing spondylitis, OA. DM neuropathy Pain Description: constant ache/throbbing pain neck; also c/o R>L shoulder pain INTERVAL HPI: SUBJECTIVE: HPI: This is a 63 year old male with hx poorly controlled DM2 (HbA1C 10.3), CKD 3/4, CAD/CABG 2016, chronic pain 2/2 OA, ankylosing spondylitis, recent [place] admission neck pain (imaging reported no acute [...] no bacteria, +mod Hb, + 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 He lives with his and dtr; ambulates with a walker or cane. He does not use tobacco, ETOH or illicit meds. Review of [place] Automated RX Reporting System shows Summary Total [...] Pharmacy Refill Daily Dose * Pymt Type [facility] 03/22/2019 2 03/22/2019 Hydrocodone-Acetamin 5-325 MG 30 4 Ma Ter [id number] [place] (5563) 0 37.50 [facility] [place] 12/04/2018 1 02/04/2018 Gabapentin 300 MG Capsule 180 90 Ma Bar [id number] [place] (2499) 3 [facility] [place] 09/12/2018 1 02/04/2018 Gabapentin 300 MG Capsule 180 90 Ma Bar [id number] [place] (1327) 2 [facility] [place] 09/02/2018 1 08/29/2018 Hydrocodone-Acetamin 5-325 MG 42 7 Mi Lyk [id number] [facility] (1327) 0 30.00 [facility] [place] 08/17/2018 1 08/08/2018 Hydrocodone-Acetamin 5-325 MG 42 7 Ja Gli [id number] [facility] (1327) 0 30.00 [facility] [place] 07/27/2018 1 07/23/2018 Hydrocodone-Acetamin 5-325 MG 42 7 Je Dul [id number] [facility] (1327) 0 30.00 [facility] [...] 3-5 mL INTRAVENOUS q 12 H Vandana (Test Engineering Technician) Jatin - aluminum-magnesium hydroxide-simethicone 200-200-20 mg/5 mL 30 mL (MAALOX,MYLANTA,MAG-AL PLUS) 30 mL ORAL DAILY PRN Vandana (Test Engineering Technician) Jatin - docusate sodium 100 mg cap(s) (COLACE) 100 mg ORAL BID PRN Vandana (Test Engineering Technician) Jatin - ipratropium-albuterol 3 mL nebulizer solution (DUONEB) 3 mL INHALATION q 4 H PRN Vandana (Test Engineering Technician) Jatin - insulin lispro pen (rapid acting) [...] Diagnosis Date - GARRET (acute kidney injury) ([facility]) 03/24/2019 - Ankylosing spondylitis ([facility]) - CAD (coronary artery disease) - Cellulitis - Chronic combined systolic and diastolic CHF (congestive heart failure) ([facility]) 03/24/2019 - CKD (chronic kidney disease) stage 3, GFR 30-59 ml/min ([facility]) 03/24/2019 - Constipation - Diabetes ([facility]) - Gout - High phosphate levels 03/24/2019 - Hx of fracture multiple bones - Hyperkalemia 03/24/2019 - Hypoalbuminemia 03/24/2019 - Hyponatremia 03/24/2019 - Hypoxia 03/24/2019 - NSTEMI (non-ST elevated myocardial infarction) ([facility]) 03/12/2017 [facility] admit - Osteoarthritis PAST SURGICAL HISTORY [...] No OARRS: see above- most recent 03/22 Milton 5/325 # 30 (4ds); 12/04 Neurontin 300mg # 180 (90ds) Pain Regimen/Notes (Opiate use last 24 hrs): APAP 650mg po q6h prn x 2 Flexeril 5mg tid prn xone Morphine 1-2mg IV q4h prn 1mg x one, 2mg x one PLAN: Pt admitted with worsening neck and bilateral shoulder pain; defer diagnostic w/u to primary team. Need to review recent imaging at [place]. Pt with hx chronic multifactorial pain 2/2 OA, anklylosing spondylitis and DM neuropathy Neurontin 200mg po qd (reduced dose with CKD 3/4) APAP 650mg po q6h prn Discontinue Morphine IV Milton 5/325 one po q4h prn mod/severe pain Change Flexeril to Baclofen 5mg po tid prn OT/PT Discussed with son at bedside Lara Feliciano MD [facility] CONSULT PROGon 03-25-2019 CONSULT PROG HNO ID: [id number] Author: Kiera Gonzalez Service: Endocrinology Author Type: [...] complication, with long-term current use of insulin ([facility]) POA: Yes Assessment AND Plan: 12-15 ears [...] hx ankylosing spondylitis GARRET (acute kidney injury) ([facility]) POA: Yes Assessment AND Plan: creat 2.33(2.47); per renal CKD (chronic kidney disease) stage 3, GFR 30-59 ml/min ([facility]) POA: Yes Assessment AND Plan: creat 1.54 in 07/2018 Arteriosclerotic heart disease (ASHD) POA: Yes Assessment AND Plan: hx Hypertension, essential POA: Yes Assessment AND Plan: per caprice UTI (urinary tract infection) POA: Unknown Assessment AND Plan: on A/B Chronic combined systolic and diastolic CHF (congestive heart failure) ([facility]) POA: Yes Assessment AND Plan: hx SIGNATURE: Kiera Gonzalez MD PATIENT NAME: Mauri Quinones DATE: March 25, 2019 TIME: 12:07 PM PAGER: [phone] Normal [facility] Comprehensive Panelon 2018 Creatinine [Mass/Vol] 2.33 mg/dL High 0.67-1.17 [facility] Comment on above: Performed By: #### G FR #### [facility] [address] [place], [place] [address] Protein [Mass/Vol] 6.6 g/dL Normal 6.4-8.2 [facility] Comment on above: Performed By: #### G FR #### [facility] [address] [place], [place] [address] ALP [Catalytic activity/Vol] 156 U/L High 45-117 [facility] Comment on above: Performed By: #### G FR #### [facility] [address] [place], [place] [address] ALT [Catalytic activity/Vol] 35 U/L Normal 12-78 [facility] Comment on above: Performed By: #### G FR #### [facility] [address] [place], [place] [address] Bilirubin [Mass/Vol] 0.1 mg/dL Low 0.2-1.0 [facility] Comment on above: Performed By: #### G FR #### [facility] [address] [place], [place] [address] AST [Catalytic activity/Vol] 16 U/L Normal 15-37 [facility] Comment on above: Performed By: #### G FR #### [facility] [address] [place], [place] [address] Glucose [Mass/Vol] 217 mg/dL High 70-99 [facility] Comment on above: Performed By: #### G FR #### [facility] [address] [place], [place] [address] Albumin [Mass/Vol] 1.7 g/dL Low 3.4-5.0 [facility] Comment on above: Performed By: #### G FR #### [facility] [address] [place], [place] [address] Anion gap [Moles/Vol] 13 mmol/L Normal 8-16 [facility] Comment on above: Performed By: #### G FR #### [facility] [address] [place], [place] [address] Calcium [Mass/Vol] 8.7 mg/dL Normal 8.5-10.1 [facility] Comment on above: Performed By: #### G FR #### [facility] [address] [place], [place] [address] CO2 [Moles/Vol] 23 mmol/L Normal 21-32 [facility] Comment on above: Performed By: #### G FR #### [facility] [address] [place], [place] [address] Urea nitrogen [Mass/Vol] 83 mg/dL High 7-18 [facility] Comment on above: Performed By: #### G FR #### [facility] [address] [place], [place] [address] Chloride [Moles/Vol] 104 mmol/L Normal 98-107 [facility] Comment on above: Performed By: #### G FR #### [facility] [address] [place], [place] [address] Potassium [Moles/Vol] 5.1 mmol/L Normal 3.5-5.1 [facility] Comment on above: Performed By: #### G FR #### [facility] [address] [place] [address] Sodium [Moles/Vol] 135 mmol/L Low 136-145 [facility] Comment on above: Performed By: #### G FR #### [facility] [address] [place], [place] [address] Hemogramon 03-25-2019 Erythrocyte distribution width (RBC) [Ratio] 13.4 % Normal 11.6-14.4 [facility] Comment on above: Performed By: #### P 14 #### [facility] [address] [place], [place] [address] Hematocrit (Bld) [Volume fraction] 28.0 % Low 40.1-51.0 [facility] Comment on above: Performed By: #### P 14 #### [facility] [address] [place], [place] [address] Hemoglobin (Bld) [Mass/Vol] 8.9 g/dL Low 13.7-17.5 [facility] Comment on above: Performed By: #### P 14 #### [facility] [address] [place], [place] [address] MCH (RBC) [Entitic mass] 29.9 pg Normal 25.7-32.2 [facility] Comment on above: Performed By: #### P 14 #### [facility] [address] [place], [place] [address] MCHC (RBC) [Mass/Vol] 31.8 % Low 32.3-36.5 [facility] Comment on above: Performed By: #### P 14 #### [facility] [address] [place] [address] MCV (RBC) [Entitic vol] 94.0 fL Normal 83.2-95.6 [facility] Comment on above: Performed By: #### P 14 #### [facility] [address] [place] [address] Platelet mean volume (Bld) [Entitic vol] 9.2 fL Normal 8.7-12.0 [facility] Comment on above: Performed By: #### P 14 #### [facility] [address] [place], [place] [address] Platelets (Bld) [#/Vol] 393 thou/cmm High 141-365 [facility] Comment on above: Performed By: #### P 14 #### [facility] [address] [place], [place] [address] RBC (Bld) [#/Vol] 2.98 mil/cmm Low 4.63-6.08 [facility] Comment on above: Performed By: #### P 14 #### [facility] [address] [place], [place] [address] RDW SD 46.3 fl High 36.1-45.8 [facility] Comment on above: Performed By: #### P 14 #### [facility] [address] [place], [place] [address] WBC (Bld) [#/Vol] 8.79 thou/cmm Normal 4.23-9.07 [facility] Comment on above: Performed By: #### P 14 #### [facility] [address] [place], [place] [address] Lipid Profileon 03-25-2019 Cholesterol in HDL [Mass/Vol] 42 mg/dL Normal >40 [facility] Comment on above: Performed By: #### G FR #### [facility] [address] [place], [place] [address] Cholesterol in LDL [Mass/Vol] 50 mg/dL Normal [facility] Comment on above: Result Comment: No C AD and with fewer than 2 CAD risk factors <160 mg/dL No CAD but with 2 or more CAD risk factors <130 mg/dL Definite CAD or other atherosclerotic disease <100 mg/dL Performed By: #### G FR #### [facility] [address] [place], [place] [address] Cholesterol in LDL/Cholesterol in HDL [Mass ratio] 1.2 Normal 1.1-4.8 [facility] Comment on above: Result Comment: LDL, VLDL,LDL/HDL, Invalid if Triglyceride >400 Performed By: #### G FR #### [facility] [address] [place], [place] [address] Cholesterol.total/Cho lesterol in HDL [Mass ratio] 2.6 {ratio} Normal 2.1-7.3 [facility] Comment on above: Performed By: #### G FR #### [address] [address] Cholesterol in VLDL [Mass/Vol] 19 mg/dL Normal <50 Desired [facility] Comment on above: Performed By: #### G FR #### [facility] [address] [place], [place] [address] Triglyceride [Mass/Vol] 95 mg/dL Normal 0-149 [facility] Comment on above: Result Comment: < 20 0 Desirable Result invalid if not a fasting specimen. Performed By: #### G FR #### [facility] [address] [place], [place] [address] Cholesterol [Mass/Vol] 111 mg/dL Normal 0-199 [facility] Comment on above: Result Comment: <200 Desirable 200-240 Borderline >240 High Performed By: #### G FR #### [facility] [place] [id number] NURSING PROGon 03-25-2019 NURSING PROG HNO ID: [id number] Author: Vandana (Rn) BISMARK Stepehn Service: ? Author Type: Registered Nurse Type: Nursing Progress Note Filed: 03/25/2019 9:02 AM Note Text: Nursing Progress Note Patient Name: Mauri Quinones Patient Location: [id number] Note: Spoke with family member, Staci Gonsalves left phone number and would like to speak to the doctor regarding some options for the pt. Will notify doctor Qavi about this. This note was completed by: aVndana Stephen RN [facility] PROGRESSon 03-25-2019 PROGRESS HNO ID: [id number] Author: Daniel Mcfadden MD Service: Nephrology Author [...] hyperkalemia 2 days ago when he visited [place] ED . Pt was given Kayexalate. K is wnl today Avoid ACEI/ARB. Renal diet ? 4- Hyperphosphatemia: continue Phoslo 667 mg one with each meal ? 5- UTI: On ceftriaxone 1g IV daily Renal team will continue to follow Please call if any question at [phone] D/w Dr Surekha Mcfadden M.D [facility] PROGRESS HNO ID: [id number] Author: Mariela Irby Service: Hospital Medicine Author Type: Physician Type: Progress Notes Filed: 03/25/2019 5:28 PM Note Text: DEPARTMENT OF HOSPITAL MEDICINE PROGRESS NOTE SERVICE DATE: 03/25/2019 SERVICE TIME: 11:21 AM Hospital Medicine/Primary Attending: Mariela Irby, DO NIGHT AND WEEKEND COVERAGE: After 7pm, please call cross cover pager #[phone] Subjective INTERVAL HPI: Patient seen and examined. [...] bowel sounds normally heard, no mass palpable PHONE REPRESENTATIVE- cranial nerves 2 to 12 grossly intact, [...] believe they did MRI C spine at [place]-will request records #neck pain-s/p imaging and d/c from [place], has neck brace ordered on admission, has [...] -- 03/24/19 0945 activity - mobilize patient (ut,wv) 03/24/19 0245 pneumatic compression stockings ([place]) 03/24/19 0245 activity - mobilize patient ([place] VTE Prophylaxis: VTE prophylaxis appropriate Disposition: Home with [facility] Plan of care discussed with: Patient SIGNATURE: Mariela Irby DO PATIENT NAME: Mauri Quinones DATE: March 25, 2019 TIME: 11:21 AM PAGER/CONTACT #: [phone] Normal [facility] Protimeon 03-25-2019 INR Coag (PPP) [Relative time] 1.00 {INR} Normal 0.90-1.30 [facility] Comment on above: Result Comment: Catherine min K Antagonist (VKA) Therapeutic Range: INR 2 to 3 (Target INR of 2.5) Note: For patients treated with VKA drugs, such as warfarin, the [place] 2012 Guideline recommends [...] [phone] Performed By: #### G FR #### [place] [address] PT Coag (PPP) [Time] 10.4 s Normal 9.7-13.0 [facility] Comment on above: Performed By: #### G FR #### [place] [id number] ALLIED HEALTHon 03-24-2019 ALLIED HEALTH HNO ID: [id number] Author: Macey (Rn) BISMARK Cruz Service: Diabetes [...] 2019 TIME: 2:43 PM PAGER: [phone] Normal [facility] CASE MGT INIT Rhoda 2018 CASE MGT INIT LALITA HNO ID: [id number] Author: Addie (Rn) BISMARK Tapia Service: Care Management Author Type: Registered Nurse Type: Care Mgt Initial Assessment Filed: 03/24/2019 8:54 AM Note Text: CARE MANAGEMENT: ASSESSMENT AND DISCHARGE PLAN SERVICE DATE: 03/24/2019 SERVICE TIME: 8:42 AM PRIMARY CARE PHYSICIAN: Aditya Davis PA-C ADMISSION STATUS: Inpatient MEDICAL: Patient/Behavioral Health Counselor Stated Goals: To have reduction in symptoms Health Insurance: [employer] CARD [facility] [place] [facility] Issues Impacting Discharge Plan: recent Ed [...] Walker Has the Patient Been in a Jail Facility in the Past 30 days? No [...] 0 I feel financially burdened by my [id number] expenses for my prescription medication: Disagree mostly [...] To Be Determined PCP: Dr. Davis Pharmacy: [facility] Met with patient. He tells me he [...] very helpful at home. Patient lives in [facility]. SIGNATURE: Addie Tapia RN PATIENT NAME: Mauri Quinones DATE: March 24, 2019 TIME: 8:42 AM PAGER/CONTACT #: [phone] Normal [facility] CONSULTon 03-24-2019 CONSULT HNO ID: [id number] Author: Kiera Gonzalez Service: Endocrinology Author Type: Physician Type: Consults Filed: 03/25/2019 1:04 PM Note Text: [facility] - Consultation PATIENT NAME: MAURI QUINONES CSN: [id number] DATE OF : 1955 SEX/AGE: M/63 PATIENT TYPE: I [facility]: [facility] LOCATION: [id number] DATE OF SERVICE: 03/24/2019 TIME OF SERVICE: 09:53 AM REASON FOR CONSULTATION: Diabetes management. HISTORY: The patient is a 63-year-old male, who was admitted with bilateral shoulder pain and neck pain. The patient has history of ankylosing spondylitis and he started having severe pain about 10 days ago and it is not getting better. He had been to [facility] twice. Regarding diabetes, the patient has history [...] has chronic kidney disease. He saw a joiner apprentice 1 time and was due to go back to joiner apprentice again. He states he has gained 5-6 [...] with you. Kiera Gonzalez MD Endocrinology SM:pita /[id number] Normal [facility] CONSULT HNO ID: [id number] Author: Donavan Comer MD Service: Nephrology Author [...] hyperkalemia 2 days ago when he visited [place] ED . Pt was given Kayexalate. K is wnl today Avoid ACEI/ARB. Renal diet 4- Hyperphosphatemia: Will start Phoslo 667 mg one with each meal 5- UTI: On ceftriaxone 1g IV daily Thank you for the consult. Renal team will continue to follow Please call if any question at [phone] Daniel Mcfadden MD -- CONSULT: NEPHROLOGY SERVICE [...] week ago and he has been to [place] [facility] twice, and was treated with pain meds and muscle relaxants. He was also diagnosed of UTI and started on keflex, outpatient. now switched to rocephin. Nephrology has been consulted for INDIRA on CKD. Per chart review, patient was instructed to follow up with a joiner apprentice but he has not seen one yet. Baseline creatinine is 2.0-2.2 FUNCTIONAL STATUS: Independent PAST MEDICAL HISTORY Diagnosis Date - GARRET (acute kidney injury) ([facility]) 03/24/2019 - Ankylosing spondylitis ([facility]) - CAD (coronary artery disease) - Cellulitis - Chronic combined systolic and diastolic CHF (congestive heart failure) ([facility]) 03/24/2019 - CKD (chronic kidney disease) stage 3, GFR 30-59 ml/min ([facility]) 03/24/2019 - Constipation - Diabetes ([facility]) - Gout - High phosphate levels 03/24/2019 - Hx of fracture multiple bones - Hyperkalemia 03/24/2019 - Hypoalbuminemia 03/24/2019 - Hyponatremia 03/24/2019 - Hypoxia 03/24/2019 - NSTEMI (non-ST elevated myocardial infarction) (HCC) 03/12/2017 [facility] admit - Osteoarthritis PAST SURGICAL HISTORY [...] March 24, 2019 TIME: 10:09 AM PAGER: [phone] [facility] CONSULT HNO ID: [id number] Author: Kiera Gonzalez Service: Endocrinology Author Type: Physician Type: Consults Filed: 03/24/2019 9:52 AM Note Text: I have reviewed the patient's medical record in detail. Consult note dictated. See new insulin orders. Kiera Gonzalez MD [facility] Comprehensive Panelon 2018 ALP [Catalytic activity/Vol] 140 U/L High 45-117 [facility] Comment on above: Performed By: #### P 14 #### [address] [address] Bilirubin [Mass/Vol] 0.1 mg/dL Low 0.2-1.0 [facility] Comment on above: Performed By: #### P 14 #### [address] [address] Protein [Mass/Vol] 6.3 g/dL Low 6.4-8.2 [facility] Comment on above: Performed By: #### P 14 #### [address] [address] AST [Catalytic activity/Vol] 18 U/L Normal 15-37 [facility] Comment on above: Performed By: #### P 14 #### [address] [address] ALT [Catalytic activity/Vol] 34 U/L Normal 12-78 [facility] Comment on above: Performed By: #### P 14 #### [facility] [address] [place], [place] [address] Creatinine [Mass/Vol] 2.47 mg/dL High 0.67-1.17 [facility] Comment on above: Performed By: #### P 14 #### [facility] [address] [place], [place] [address] Albumin [Mass/Vol] 1.5 g/dL Low 3.4-5.0 [facility] Comment on above: Performed By: #### P 14 #### [facility] [address] [place], [place] [address] Anion gap [Moles/Vol] 12 mmol/L Normal 8-16 [facility] Comment on above: Performed By: #### P 14 #### [facility] [address] [place], [place] [address] Calcium [Mass/Vol] 8.7 mg/dL Normal 8.5-10.1 [facility] Comment on above: Performed By: #### P 14 #### [facility] [address] [place], [place] [address] CO2 [Moles/Vol] 21 mmol/L Normal 21-32 [facility] Comment on above: Performed By: #### P 14 #### [facility] [address] [place], [place] [address] Glucose [Mass/Vol] 200 mg/dL High 70-99 [facility] Comment on above: Performed By: #### P 14 #### [facility] [address] [place], [place] [address] Urea nitrogen [Mass/Vol] 83 mg/dL High 7-18 [facility] Comment on above: Performed By: #### P 14 #### [facility] [address] [place], [place] [address] Chloride [Moles/Vol] 103 mmol/L Normal 98-107 [facility] Comment on above: Performed By: #### P 14 #### [facility] [address] [place], [place] [address] Potassium [Moles/Vol] 5.1 mmol/L Normal 3.5-5.1 [facility] Comment on above: Performed By: #### P 14 #### [facility] [address] [place] [address] Sodium [Moles/Vol] 131 mmol/L Low 136-145 [facility] Comment on above: Performed By: #### P 14 #### [facility] [address] [place] [id number] Cult Urineon 03-24-2019 Cult Urine Test performed at [facility] Culture will be worked up per [...] vitro, but are not effective clinically. Normal [facility] Comment on above: Performed By: #### G FR #### [facility] [address] [place] [address] ED NOTEon 03-24-2019 ED NOTE HNO ID: [id number] Author: Sydnee MarquezRn) BISMARK Priest Service: Emergency Medicine Author Type: Registered Nurse Type: ED Notes Filed: 03/24/2019 12:04 AM Note Text: Pt when sleeping de-sat to 80% on RA. PAC Notified. Pt placed on 2 L NC and woke up by RN and sat improved. Normal [facility] HISTORY PHYSICALon 9 HISTORY PHYSICAL HNO ID: [id number] Author: Vandana Steiner Service: Hospital Medicine Author Type: Nurse Practitioner Type: HANDP Filed: 03/24/2019 9:11 AM Note Text: -- Attestation signed by Jose Marcial at 03/24/2019 4:41 PM Patient seen and evaluated independently of BOX BRANDER. Agree with A/P as below. This is a 63 y/o male with history of Ankylosing Spondylitis presents with worsening of neck pain. Was recently admitted at [facility] with reportedly negative imaging studies for acute [...] antibiotics, obtain records (cervical spine imaging) from [facility].. Request nephrology consult for worsening kidney function. [...] 2 days later. Patient has been to [place] ER ?2 and was diagnosed with a cervical strain as well as arthritis in the neck. He was put on muscle relaxants and pain medications. He was also diagnosed with a UTI and put on Keflex. Patient was not having any improvement with symptoms and came to [facility] ER. Patient currently is having pain in [...] full sentences. In ER, patient was given Milton and Keflex. Currently NIH?0. PAST MEDICAL HISTORY Diagnosis Date - GARRET (acute kidney injury) ([facility]) 03/24/2019 - Ankylosing spondylitis ([facility]) - CAD (coronary artery disease) - Cellulitis - Chronic combined systolic and diastolic CHF (congestive heart failure) ([facility]) 03/24/2019 - CKD (chronic kidney disease) stage 3, GFR 30-59 ml/min ([facility]) 03/24/2019 - Constipation - Diabetes ([facility]) - Gout - High phosphate levels 03/24/2019 - Hx of fracture multiple bones - Hyperkalemia 03/24/2019 - Hypoalbuminemia 03/24/2019 - Hyponatremia 03/24/2019 - Hypoxia 03/24/2019 - NSTEMI (non-ST elevated myocardial infarction) ([facility]) 03/12/2017 [facility] admit - Osteoarthritis PAST SURGICAL HISTORY [...] 7.324 (L) 7.350 - 7.450 Final Specific [place], [place] Date Value Ref Range Status 03/23/2019 [...] meds GARRET on CKD (acute kidney injury) ([facility]) POA: Yes Assessment AND Plan: c/s Nephrology, IVF, monitor High phosphate levels POA: Yes Assessment AND Plan: monitor Hyponatremia POA: Yes Assessment AND Plan: IVF Arteriosclerotic heart disease (ASHD) POA: Yes Assessment AND Plan: c/w home meds Hypertension, essential POA: Yes Assessment AND Plan: tele, stable, c/w home med Anemia of chronic renal failure, stage 3 (moderate) ([facility]) POA: Yes Assessment AND Plan: c/s Nephrology, monitor Altered mental status POA: Yes Assessment AND Plan: resolved, possibly pain meds/muscle relaxant? UTI (urinary tract infection) POA: Unknown Assessment AND Plan: IV rocephin, IVF, monitor Chronic combined systolic and diastolic CHF (congestive heart failure) ([facility]) POA: Yes Assessment AND Plan: check BNP, [...] 0232 -- 03/24/19 0245 pneumatic compression stockings ([place]) 03/24/19 0245 activity - mobilize patient ([place]) VTE Prophylaxis: VTE prophylaxis appropriate SIGNATURE: Vandana Steiner APRN.CNP PATIENT NAME: Mauri Quinones DATE: March 24, 2019 TIME: 8:54 AM PAGER/CONTACT #: [phone] Normal [facility] Hemogramon 03-24-2019 Erythrocyte distribution width (RBC) [Ratio] 13.5 % Normal 11.6-14.4 [facility] Comment on above: Performed By: #### C BC1 #### [facility] [address] [place], [place] [address] Hematocrit (Bld) [Volume fraction] 29.2 % Low 40.1-51.0 [facility] Comment on above: Performed By: #### C BC1 #### [facility] [address] [place] [address] Hemoglobin (Bld) [Mass/Vol] 9.1 g/dL Low 13.7-17.5 [facility] Comment on above: Performed By: #### C BC1 #### [facility] [address] [place] [address] MCH (RBC) [Entitic mass] 30.0 pg Normal 25.7-32.2 [facility] Comment on above: Performed By: #### C BC1 #### [facility] [address] [place] [address] MCHC (RBC) [Mass/Vol] 31.2 % Low 32.3-36.5 [facility] Comment on above: Performed By: #### C BC1 #### [facility] [address] [place] [address] MCV (RBC) [Entitic vol] 96.4 fL High 83.2-95.6 [facility] Comment on above: Performed By: #### C BC1 #### [facility] [address] [place] [address] Platelet mean volume (Bld) [Entitic vol] 9.0 fL Normal 8.7-12.0 [facility] Comment on above: Performed By: #### C BC1 #### [facility] [address] [place] [address] Platelets (Bld) [#/Vol] 348 thou/cmm Normal 141-365 [facility] Comment on above: Performed By: #### C BC1 #### [facility] [address] [place] [address] RBC (Bld) [#/Vol] 3.03 mil/cmm Low 4.63-6.08 [facility] Comment on above: Performed By: #### C BC1 #### [facility] [address] [place] [address] RDW SD 47.9 fl High 36.1-45.8 [facility] Comment on above: Performed By: #### C BC1 #### [facility] [address] [place], [place] [address] WBC (Bld) [#/Vol] 7.18 thou/cmm Normal 4.23-9.07 [facility] Comment on above: Performed By: #### C BC1 #### [facility] [address] [place], [place] [address] Hepatic Panelon 03-24-2019 ALP [Catalytic activity/Vol] 155 U/L High 45-117 [facility] Comment on above: Performed By: #### P 14 #### [facility] [address] [place], [place] [address] Bilirubin [Mass/Vol] 0.2 mg/dL Normal 0.2-1.0 [facility] Comment on above: Performed By: #### P 14 #### [facility] [address] [place], [place] [address] ALT [Catalytic activity/Vol] 37 U/L Normal 12-78 [facility] Comment on above: Performed By: #### P 14 #### [facility] [address] [place], [place] [address] AST [Catalytic activity/Vol] 23 U/L Normal 15-37 [facility] Comment on above: Performed By: #### P 14 #### [facility] [address] [place], [place] [address] Bilirubin [Mass/Vol] mg/dL Normal 0.00-0.20 [facility] Comment on above: Performed By: #### P 14 #### [facility] [address] [place], [place] [address] Protein [Mass/Vol] 6.9 g/dL Normal 6.4-8.2 [facility] Comment on above: Performed By: #### P 14 #### [facility] [address] [place], [place] [address] Albumin [Mass/Vol] 1.7 g/dL Low 3.4-5.0 [facility] Comment on above: Performed By: #### P 14 #### [facility] [address] [place], [place] [address] Hgb A1con 03-24-2019 HbA1c (Bld) [Mass fraction] 252 mg/dl Normal [facility] Comment on above: Performed By: #### P 14 #### [facility] [address] [place], [place] [address] HbA1c (Bld) [Mass fraction] 10.4 % High 4.2-6.3 [facility] Comment on above: Result Comment: Meth od is National Glycohemoglobin Standardization Program (NGSP) compliant. Performed By: #### P 14 #### [facility] [address] [place], [place] [address] Magnesium Bloodon 03-24-2019 Magnesium [Mass/Vol] 2.0 mg/dL Normal 1.6-2.6 [facility] Comment on above: Performed By: #### P 14 #### [place] [address] Magnesium [Mass/Vol] 2.1 mg/dL Normal 1.6-2.6 [facility] Comment on above: Performed By: #### M AG #### [place] [address] Microalbumin,Randomon 2018 Microalbumin,Random 243.00 mg/dL High 0.20-2.50 [facility] Comment on above: Performed By: #### P 14 #### [place] [address] N-terminal Pro-BNPon 019 Natriuretic peptide B (Bld) [Mass/Vol] [address] pg/mL Normal [facility] Comment on above: Result Comment: Note new reference range: Normal Reference Range: Patients <75 yrs old <125pg/ml Patients >=75 yrs old <450 pg/ml Performed By: #### P 14 #### [address] [address] NURSING PROGon 03-24-2019 NURSING PROG HNO ID: [id number] Author: Vandana (Rn) BISMARK Stephen Service: ? Author Type: Registered Nurse Type: Nursing Progress Note Filed: 03/24/2019 8:32 AM Note Text: Nursing Progress Note Patient Name: Mauri Quinones Patient Location: [id number] Daily Note:While checking pt vitals at this time, checked pt pulse ox and pt was at 84% RA, placed pt on 2L NC and pt came up to 93%, Sound BOX BRANDER Vandana in room at this time and informed her. This note was completed by: Vandana Stephen RN [facility] NUTRITIONon 03-24-2019 NUTRITION HNO ID: [id number] Author: Maki Sorensen) ALIA Ham Service: Nutrition [...] Per patient has had in past at [facility]. Referral (Recommendation): Primary Care Provider MNT Billing: Initial Assess/15 min 1 unit SIGNATURE: MATA Bazan PATIENT NAME: Mauri Quinones DATE: March 24, 2019 TIME: 12:15 PM PAGER: [phone] [facility] PLAN OF CAREon 03-24-2019 PLAN OF CARE HNO ID: [id number] Author: Sylvia Duque (Pharmacist) Service: Pharmacy Author [...] medication history: Yes Reconciliation completed? Yes All MANAGER WELDING medications addressed by LIP, Medications intentionally held [...] Patient's requests no cyclobenzaprine. Patient Compliance: Good Nupkr-ze-Lplnovbia Medication List Adjustments: Medication Regimen Changes Medication [...] 500mg BID Filled 03/22/19 for 7 days Milton 5/325mg PRN pain 4 day supply filled 03/22/19 Sodium polystyrene soln 5 day supply filled 03/22/19 Further Clarification Required: Medication Issue Patient is a 30 day readmission: Yes. Description: [facility] discharged 03/22/19 Patient Interested in Bedside Delivery: No Time Spent Reviewing Patient's Medications: 60 minutes Medication History Status (Justify NOT COMPLETED status): COMPLETED Allergies: ALLERGIES Allergen Reactions - Lyrica [Pregabalin] Swelling Preferred Pharmacy: [facility] Current MANAGER WELDING Medications: Prior to Admission medications as of [...] PHARMACIST March 24, 2019 4:47 PM Normal [facility] Phosphorus Bloodon 9 Phosphate [Mass/Vol] 6.0 mg/dL High 2.5-4.9 [facility] Comment on above: Performed By: #### P 14 #### [place] [address] Phosphate [Mass/Vol] 6.5 mg/dL High 2.5-4.9 [facility] Comment on above: Performed By: #### P HOS #### [place] [address] THERAPY NTon 03-24-2019 THERAPY NT HNO ID: [id number] Author: Paulette Barrera/Savanna Lion Service: Occupational Therapy Author Type: Occupational Therapist Type: Therapy (PT/OT/Speech/Resp) Filed: 03/24/2019 3:54 PM Note Text: Occupational Therapy Evaluation SERVICE DATE: 03/24/2019 SERVICE TIME: 1520 to 1540 ROOM: [place] [address] Recommended Discharge Disposition: Home Recommended Discharge Disposition [...] of daily living (ADL) Interventions Provided: Evaluation;Self Senior Care Management (63205) $ Evaluation-Moderate (98211) Billed Units: 1 unit OT Evaluation Moderate [...] performance: ankylosing spondylitis, DM, OA, CAD. Self Senior Care Management (23718) Treatment Minutes: 8 1 unit Skilled Intervention(s): [...] grass a week ago. Initially presented to [place] ED, incidental finding of UTI, started on Abx. PAST MEDICAL HISTORY Diagnosis Date - GARRET (acute kidney injury) ([facility]) 03/24/2019 - Ankylosing spondylitis ([facility]) - CAD (coronary artery disease) - Cellulitis - Chronic combined systolic and diastolic CHF (congestive heart failure) ([facility]) 03/24/2019 - CKD (chronic kidney disease) stage 3, GFR 30-59 ml/min ([facility]) 03/24/2019 - Constipation - Diabetes ([facility]) - Gout - High phosphate levels 03/24/2019 - Hx of fracture multiple bones - Hyperkalemia 03/24/2019 - Hypoalbuminemia 03/24/2019 - Hyponatremia 03/24/2019 - Hypoxia 03/24/2019 - NSTEMI (non-ST elevated myocardial infarction) ([facility]) 03/12/2017 [facility] admit - Osteoarthritis PAST SURGICAL HISTORY [...] March 24, 2019 TIME: 3:47 PM Normal [facility] THERAPY NT HNO ID: [id number] Author: Melvin Duval Service: Physical Therapy Author Type: Physical Therapist Type: Therapy (PT/OT/Speech/Resp) Filed: 03/24/2019 10:11 AM Note Text: Physical Therapy Evaluation SERVICE DATE: 03/24/2019 SERVICE TIME: 0925 to 1000 ROOM: [id number] Recommended Discharge Disposition: Home Recommended Discharge Disposition [...] Patient TREATMENT INTERVENTIONS: Interventions Provided: Evaluation;Therapeutic Exercise (63726) $ Evaluation-Moderate (65642) Billed Units: 1 unit History and examination of body systems see assessment section above. This patient?s clinical presentation is evolving. The patient required a moderate complexity evaluation. Therapeutic Exercise (34828) Treatment Minutes: 8 1 unit Skilled Intervention(s): [...] March 24, 2019 TIME: 9:40 AM Normal [facility] Urea Nitrogen Randomon 03-24 Urea nitrogen [Mass/Vol] 496 mg/dL Normal [facility] Comment on above: Performed By: #### P 14 #### [place] [address] Urinalysis Routineon 019 Bacteria LM.HPF (Urine sed) [#/Area] NONE Normal None [facility] Comment on above: Performed By: #### U RIN2 #### [facility] [address] [place], [place] [address] Ep Cells Urine 1.0 /hpf Normal 0.0-5.0 [facility] Comment on above: Performed By: #### U RIN2 #### [facility] [address] [place] [address] Hyaline Cast 4.7 /lpf High 0.0-1.0 [facility] Comment on above: Performed By: #### U RIN2 #### [facility] [address] [place] [address] RBC LM.HPF (Urine sed) [#/Area] 57.3 /[HPF] High 0.0-5.0 [facility] Comment on above: Performed By: #### U RIN2 #### [facility] [address] [place] [address] WBC LM.HPF (Urine sed) [#/Area] /[HPF] High 0.0-5.0 [facility] Comment on above: Performed By: #### U RIN2 #### [place] [address] Appearance (U) TURBID Normal [facility] Comment on above: Performed By: #### U RIN2 #### [facility] [address] [place] [address] Bilirubin (U) [Mass/Vol] Negative Normal Negative [facility] Comment on above: Performed By: #### U RIN2 #### [place] [address] Color (U) YELLOW Normal [facility] Comment on above: Performed By: #### U RIN2 #### [place] [address] Glucose Ql (U) 500 mg/dL Abnormal Negative [facility] Comment on above: Performed By: #### U RIN2 #### [place] [address] Hemoglobin,Urine MODERATE Abnormal Negative [facility] Comment on above: Performed By: #### U RIN2 #### [place] [address] Ketone Urine Negative Normal Negative [facility] Comment on above: Performed By: #### U RIN2 #### [place] [address] Leukocytes Esterase LARGE Abnormal Negative [facility] Comment on above: Performed By: #### U RIN2 #### [facility] [address] [place], [place] [address] Nitrites Urine Negative Normal Negative [facility] Comment on above: Performed By: #### U RIN2 #### [facility] [address] [place], [place] [address] pH (U) 5.5 [pH] Normal 5.0-8.0 [facility] Comment on above: Performed By: #### U RIN2 #### [facility] [address] [place] [address] Protein (U) [Mass/Vol] 100 mg/dL Abnormal Negative [facility] Comment on above: Performed By: #### U RIN2 #### [facility] [address] [place] [address] Specific [place], Ur 1.019 Normal 1.005-1.030 [facility] [facility] Comment on above: Performed By: #### U RIN2 #### [place] [address] Urobilinogen,Ur 1.0 EU/dL Normal 0.2-1.0 [facility] Comment on above: Performed By: #### U RIN2 #### [address] [address] Urine Protein/Creatinine Rat ioon 03-24-2019 Prot/Creat Ratio 6.00 mg/mg creat High 0.02-0.13 [facility] Comment on above: Performed By: #### P 14 #### [address] [address] Protein Ql (U) 473.4 mg/dL High 0.0-11.9 [facility] Comment on above: Performed By: #### P 14 #### [facility] [address] [place], [place] [address] Creatinine,Urine 78.9 mg/dL Normal [facility] Comment on above: Performed By: #### P 14 #### [address] [address] Vitamin B12on 03-24-2019 Cobalamin (Vitamin B12) [Mass/Vol] 1687 pg/mL High 193-986 [facility] Comment on above: Performed By: #### P 14 #### [facility] [address] [place] [address] Comprehensive Panelon 2018 ALP [Catalytic activity/Vol] 154 U/L High 45-117 [facility] Comment on above: Performed By: #### P 14 #### [facility] [address] [place], [place] [address] Bilirubin [Mass/Vol] 0.2 mg/dL Normal 0.2-1.0 [facility] Comment on above: Performed By: #### P 14 #### [facility] [address] [place], [place] [address] Creatinine [Mass/Vol] 2.46 mg/dL High 0.67-1.17 [facility] Comment on above: Performed By: #### P 14 #### [facility] [address] [place], [place] [address] Protein [Mass/Vol] 6.7 g/dL Normal 6.4-8.2 [facility] Comment on above: Performed By: #### P 14 #### [facility] [address] [place], [place] [address] ALT [Catalytic activity/Vol] 40 U/L Normal 12-78 [facility] Comment on above: Performed By: #### P 14 #### [facility] [address] [place], [place] [address] AST [Catalytic activity/Vol] 27 U/L Normal 15-37 [facility] Comment on above: Performed By: #### P 14 #### [facility] [address] [place], [place] [address] Albumin [Mass/Vol] 1.7 g/dL Low 3.4-5.0 [facility] Comment on above: Performed By: #### P 14 #### [facility] [address] [place], [place] [address] Anion gap [Moles/Vol] 12 mmol/L Normal 8-16 [facility] Comment on above: Performed By: #### P 14 #### [facility] [address] [place], [place] [address] CO2 [Moles/Vol] 23 mmol/L Normal 21-32 [facility] Comment on above: Performed By: #### P 14 #### [facility] [address] [place], [place] [address] Glucose [Mass/Vol] 287 mg/dL High 70-99 [facility] Comment on above: Performed By: #### P 14 #### [facility] [address] [place], [place] [address] Urea nitrogen [Mass/Vol] 81 mg/dL High 7-18 [facility] Comment on above: Performed By: #### P 14 #### [facility] [address] [place], [place] [address] Calcium [Mass/Vol] 8.4 mg/dL Low 8.5-10.1 [facility] Comment on above: Performed By: #### P 14 #### [facility] [address] [place], [place] [address] Chloride [Moles/Vol] 102 mmol/L Normal 98-107 [facility] Comment on above: Performed By: #### P 14 #### [facility] [address] [place], [place] [address] Potassium [Moles/Vol] 4.9 mmol/L Normal 3.5-5.1 [facility] Comment on above: Performed By: #### P 14 #### [facility] [address] [place], [place] [address] Sodium [Moles/Vol] 132 mmol/L Low 136-145 [facility] Comment on above: Performed By: #### P 14 #### [facility] [address] [place], [place] [address] ECU Troponin Ion 03-23-2019 Troponin I.cardiac [Mass/Vol] ng/mL Normal 0.015-0.045 [facility] Comment on above: Performed By: #### E RTRP #### [facility] [address] [place], [place] [address] ED NOTEon 03-23-2019 ED NOTE HNO ID: [id number] Author: Sydnee MarquezRn) BISMARK Priest Service: Emergency Medicine Author Type: Registered Nurse Type: ED Notes Filed: 03/23/2019 8:40 PM Note Text: Pt aware of need for urine sample. Normal [facility] ED NOTE HNO ID: [id number] Author: Sydnee MarquezRn) BISMARK Priest Service: Emergency Medicine Author Type: Registered Nurse Type: ED Notes Filed: 03/23/2019 8:40 PM Note Text: CT and XR notified that patient is ready for imaging. Normal [facility] ED NOTE HNO ID: [id number] Author: Sydnee Guzman) BISMARK Priest Service: Emergency Medicine Author Type: Registered Nurse Type: ED Notes Filed: 03/23/2019 7:56 PM Note Text: Pt reports having been seen multiple times over the last week, today having generalized weakness and fatigue. Pt also reports bilateral neck pain. Pt has no neuro deficits at this time. Pt does have bilateral lower extremity pitting edema. Normal [facility] ED PROV NOTEon 03-23-2019 ED PROV NOTE HNO ID: [id number] Author: Torri Trejo DO Service: Emergency Medicine [...] branches and hurt his arms. Went to [place] ER this past , dx with cervical starin, sent home with muscle relaxers. Went back to [place] on Sunday (bc he fell out of his recliner), had an MRI and was admitted overnight. Discharged yesterday. Family states he is lethargic now, cannot walk well. Was told his potassium was high at [place]. HPI 63y M presents c/o bilateral neck pain. is with him and reports slurred speech, lethargy and BLE edema. 9d ago, he sustained a neck injury where his arms were yanked backwards while he was trying to move a branch on riding mower. Pt initially did not think he needed to come in, but the pain persisted, so he went to [place] 4d ago. He was initially diagnosed with [...] They called EMS and went back to [place]. Pt was admitted and neck CT performed [...] come here rather than go back to [place]. reports that when he was in the hospital he was misidentifying objects and said he wanted to be with his relatives. thinks he may have been slurring his speech some as well. Pt currently denies SI/HI. 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 Recent decrease in lasix per doctor's orders from 60mg to 40mg. PAST MEDICAL HISTORY Diagnosis Date - Ankylosing spondylitis ([facility]) - CAD (coronary artery disease) - Cellulitis - Constipation - Diabetes ([facility]) - Gout - Hx of fracture multiple bones - NSTEMI (non-ST elevated myocardial infarction) ([facility]) 03/12/2017 [facility] admit - Osteoarthritis PAST SURGICAL HISTORY [...] 0.68 (*) 0.84 - 2.85 thou/cmm Abs. Kemper 1.37 (*) 0.30 - 0.82 thou/cmm All [...] as of Mar 26 1526 Others' Documentation [place] Mar 23, 2019 2210 Clean catch urine [...] the pain persisted, so he went to [place] 4d ago. He was initially diagnosed with [...] They called EMS and went back to [place]. Pt was admitted and neck CT performed [...] come here rather than go back to [place]. reports that when he was in the [...] this is unchanged from labs done at [place]. Potassium was is within normal limits at 4.9 today. Hemoglobin has increased from labs from labs done at [place]. EKG as interpreted by Dr. Torri Trejo [...] Urine culture sent. Patient given normal dose Milton and Keflex while in the ED. Patient admitted to [facility] under Dr. 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 Author Type: Physician Clinical Education Consultant Type: ED Triage Notes Filed: 03/23/2019 6:44 [...] spondylitis. They state they went to the [place] ER 4 days ago and diagnosed with [...] CMP EKG SIGNATURE: Floyd Reid PA-C Normal [facility] Hemogram/Diffon 03-23-2019 Abs Immature Grans 0.04 thou/cmm Normal 0.00-0.05 [facility] Comment on above: Performed By: #### C BCD1 #### [facility] [address] [place] [address] Abs Neut (ANC) 4.13 thou/cmm Normal 1.78-5.38 [facility] Comment on above: Performed By: #### C BCD1 #### [facility] [address] [place] [address] Abs. Baso 0.03 thou/cmm Normal 0.01-0.08 [facility] Comment on above: Result Comment: Smea r scanned; tech agrees with automated differential Performed By: #### C BCD1 #### [facility] [address] [place] [address] Abs. Kemper 1.37 thou/cmm High 0.30-0.82 [facility] Comment on above: Performed By: #### C BCD1 #### [facility] [address] [place] [address] Basophils/100 WBC (Bld) 0.5 % Normal [facility] Comment on above: Performed By: #### C BCD1 #### [facility] [address] [place] [address] Eosinophils (Bld) [#/Vol] 0.15 thou/cmm Normal 0.04-0.54 [facility] Comment on above: Performed By: #### C BCD1 #### [place] [address] Eosinophils/100 WBC (Bld) 2.3 % Normal [facility] Comment on above: Performed By: #### C BCD1 #### [facility] [address] [place] [address] Immature Grans 0.60 % Normal [facility] Comment on above: Performed By: #### C BCD1 #### [facility] [address] [place] [address] Lymphocytes (Bld) [#/Vol] 0.68 thou/cmm Low 0.84-2.85 [facility] Comment on above: Performed By: #### C BCD1 #### [facility] [address] [place], [place] [address] Lymphocytes/100 WBC (Bld) 10.6 % Normal [facility] Comment on above: Performed By: #### C BCD1 #### [facility] [address] [place], [place] [address] Monocytes/100 WBC (Bld) 21.4 % Normal [facility] Comment on above: Performed By: #### C BCD1 #### [facility] [address] [place] [address] Seg Neutrophil 64.6 % Normal [facility] Comment on above: Performed By: #### C BCD1 #### [facility] [address] [place] [address] Erythrocyte distribution width (RBC) [Ratio] 13.6 % Normal 11.6-14.4 [facility] Comment on above: Performed By: #### C BCD1 #### [facility] [address] [place] [address] Hematocrit (Bld) [Volume fraction] 32.2 % Low 40.1-51.0 [facility] Comment on above: Performed By: #### C BCD1 #### [facility] [address] [place] [address] Hemoglobin (Bld) [Mass/Vol] 10.2 g/dL Low 13.7-17.5 [facility] Comment on above: Performed By: #### C BCD1 #### [facility] [address] [place] [address] MCH (RBC) [Entitic mass] 29.7 pg Normal 25.7-32.2 [facility] Comment on above: Performed By: #### C BCD1 #### [facility] [address] [place] [address] MCHC (RBC) [Mass/Vol] 31.7 % Low 32.3-36.5 [facility] Comment on above: Performed By: #### C BCD1 #### [facility] [address] [place] [address] MCV (RBC) [Entitic vol] 93.6 fL Normal 83.2-95.6 [facility] Comment on above: Performed By: #### C BCD1 #### [facility] [address] [place], [place] [address] Platelet mean volume (Bld) [Entitic vol] 9.0 fL Normal 8.7-12.0 [facility] Comment on above: Performed By: #### C BCD1 #### [facility] [address] [place], [place] [address] Platelets (Bld) [#/Vol] 320 thou/cmm Normal 141-365 [facility] Comment on above: Performed By: #### C BCD1 #### [facility] [address] [place], [place] [address] RBC (Bld) [#/Vol] 3.44 mil/cmm Low 4.63-6.08 [facility] Comment on above: Performed By: #### C BCD1 #### [facility] [address] [place], [place] [address] RDW SD 46.5 fl High 36.1-45.8 [facility] Comment on above: Performed By: #### C BCD1 #### [facility] [address] [place], [place] [address] WBC (Bld) [#/Vol] 6.40 thou/cmm Normal 4.23-9.07 [facility] Comment on above: Performed By: #### C BCD1 #### [facility] [address] [place], [place] [address] BMPon 07-22-2018 Anion gap 3 molar conc 8 mmol/L Normal 5-16 [facility] [place] Comment on above: Order Comment: Campu s: MIs This Patient Going To Surgery? YSurgery Date: 02/20/18 Performed By: #### L 500.15699, L500.21854, L500.79715 ####[facility] [id number] [place], [place] [address]Bq# [phone] Calcium mass conc 7.4 mg/dL Low 8.5-10.1 [facility] Comment on above: Order Comment: Campu s: MIs This Patient Going To Surgery? YSurgery Date: 02/20/18 Performed By: #### L 500.41231, L500.01714, L500.66333 ####[facility] [id number] [place], [place] [address]Gu# [phone] Chloride molar conc 94 mmol/L Low 98-107 [facility] Comment on above: Order Comment: Campu s: MIs This Patient Going To Surgery? YSurgery Date: 02/20/18 Performed By: #### L 500.01124, L500.84083, L500.98436 ####[facility] [id number] [place], [place] [address]Re# [phone] CO2 molar conc 28 mmol/L Normal 21-32 [facility] Comment on above: Order Comment: Campu s: MIs This Patient Going To Surgery? YSurgery Date: 02/20/18 Performed By: #### L 500.70876, L500.50405, L500.20212 ####[facility] [id number] [place], [place] [address]He# [phone] Creatinine mass conc 3.010 mg/dL High 0.670-1.170 [facility] Comment on above: Order Comment: Campu s: MIs This Patient Going To Surgery? YSurgery Date: 02/20/18 Result Comment: Macrina ents receiving either N-Acetylcysteine (NAC) orMetamizole prior to venipuncture, may have falsely depressedresults. Performed By: #### L 500.70621, L500.32789, L500.75949 ####[facility] [address] [place], [place] [address]Lq# [phone] Glucose mass conc 74 mg/dL Normal 70-100 [facility] Comment on above: Order Comment: Campu s: MIs This Patient Going To Surgery? YSurgery Date: 02/20/18 Result Comment: 70-1 00- Normal Fasting; 100-125 Impaired Fasting; greaterthan 126 on more than one result- Diabetes. ADA guidelines.Results may be falsely elevated after the administration ofSulfapyridine.Results may be falsely depressed after the administration ofSulfasalazine. Performed By: #### L 500.56075, L500.90656, L500.79276 ####[facility] [id number] [place], [place] [address]Kx# [phone] Potassium molar conc 4.8 mmol/L Normal 3.5-5.1 [facility] Comment on above: Order Comment: Campu s: MIs This Patient Going To Surgery? YSurgery Date: 02/20/18 Performed By: #### L 500.26352, L500.73704, L500.83912 ####[facility] [address] [place], [place] [address]Ea# [phone] Sodium molar conc 130 mmol/L Low 136-145 [facility] Comment on above: Order Comment: Campu s: MIs This Patient Going To Surgery? YSurgery Date: 02/20/18 Performed By: #### L 500.57354, L500.64737, L500.40398 ####[facility] [address] [place], [place] [address]Mt# [phone] Urea nitrogen mass conc 68 mg/dL High 7-26 [facility] Comment on above: Order Comment: Campu s: MIs This Patient Going To Surgery? YSurgery Date: 02/20/18 Performed By: #### L 500.21382, L500.79401, L500.84553 ####[facility] [id number] [place], [place] [address]Wn# [phone] Urea nitrogen/Creatinine mass ratio 22 mg/mg Normal 15-24 [facility] Comment on above: Order Comment: Campu s: MIs This Patient Going To Surgery? YSurgery Date: 02/20/18 Performed By: #### L 500.62575, L500.68522, L500.23295 ####[facility] [id number] [place], [place] [address]Cl# [phone] GFR ESTon 07-22-2018 IF AMER 26 ML/MIN Normal [facility] Comment on above: Order Comment: Campu s: MIs This Patient Going To Surgery? YSurgery Date: 02/20/18 Performed By: #### L 500.43573, L500.32595, L500.36019 ####[facility] [id number] [place], [place] [address]Cb# [phone] IF non-AFR AMER 21 ML/MIN Normal [facility] [place] Comment on above: Order Comment: Kahlil s: MIs This Patient Going To Surgery? YSurgery Date: 02/20/18 Performed By: #### L 500.21495, L500.16930, L500.97012 ####[facility] [id number] [place], [place] [address]Eu# [phone] GLUCOSE METERon 07-22-2018 Glucose mass conc 125 mg/dL Normal 85-125 [facility] [place] Glucose mass conc 84 mg/dL Low 85-125 [facility] Glucose mass conc 85 mg/dL Normal 85-125 [facility] PBNP TESTon 07-22-2018 Natriuretic peptide B mass conc (Bld) [address] pg/mL High 0-900 [facility] Comment on above: Order Comment: Kahlil s: MIs This Patient Going To Surgery? YSurgery Date: 02/20/18 Result Comment: NT-p roBNP results of less than 300 pg/ml effectively rulesout acute congestive heart failure with 99% negativepredictive value. Performed By: #### L 500.38684, L500.78307, L500.32554 ####[facility] [id number] [place], [place] [address]Bb# [phone] PROG IMSon 07-22-2018 Protein mass conc [facility] Patient Name: VALENTE QUINONES [facility] Date of : [address] [address] Unit Number: [id number] Number: [id number] Note-Hospitalist Patient Status: ADM INAttending Doctor: Jensen Peguero DOService Date: 07/22/18 1431Chief ComplaintChief ComplaintRight hip painSubjectiveS: (2 ROS minimum)Remained asymptomatic with no chest pain or shortness of breath.Objective (ROS)Nursing VitalsVital Signs (Last)ResultDate TimePulse If7766 0815B/P143/6211 5404Ghab66.011 1763Tjgri7246 3967Xjjq6319/26 0815O2 DeliveryNASAL ELDNCNR17/22 0440O2 Flow Fodt364/22 0440General AppearanceComfortablePhysi sabrina ExamPhysical Examination NotesNeurological / Psychiatric Alert, Orientation D1CXCEV EOMI, PERRLNeck No JVD, No Enlarged ThyroidRespiratory Normal Breathing Effort, Clear LungsCardiovascular Heart RRR, No M / R / GGastrointestinal Normal Bowel Sounds, Non TenderMusculoskeletal No EdemaSkin No Rash, Warm / DryDiagnostic Data:Medications CurrentSig/SchStart timeLastMedicationDoseRout eStop TimeStatusAdminAl Hydrox/Mg Hydrox/30 UBC9MPRK PRN109/16 1100ACSimethiconePO(MAALOX (ALAMAG)PLUSORAL LIQ)Wdyvxep583 QGKLKEJQ10/22 0754QE81/26(ECOTRIN TAB.EC)NV4792Qhmkhmlqxdfyb ne HCl25 ATW6ENDM PRN109/16 1100AC(BENADRYL CAP)PODocusate Adttbdn607 MGQ12H@21109/16 8004ZB33/26(SURFAK CAP)DP7799Xobrldlup Mesylate2 MGBID109/16 8486HE71/26(CARDURA TAB)KQ0773Ungiszrtei Iignsf41 CYA56G90/22 7568LJ36/26(LOVENOX D.SYR)JD2945Qobbgrabem16 MGBID.30AC109/21 3318HF09(LASIX TAB)BP4227Icufhhokmq027 MGQHS07/17 3415RY09/25(NEURONTIN CAP)XB7145Yricjheouvq Bitart/1 QIEGJ1IKQZ PRN109/18 1430ACAcetaminophenPO(NORC O 5-325 TAB)Hydrocodone Bitart/2 EUXAI8VZEK PRN109/18 7327GE27/26AcetaminophenPO 1353(NORCO 5-325 TAB)Hydromorphone HCl2 JMM2ORVH PRN109/16 1100AC(DILAUDID D.SYR)IMInsulin Aprsagtc28 KDMZBKVT31/22 3965IG39/25(LANTUS SOLOSTAR PEN)XW4371Uqhcqvj Human LisproSee HfvvMKCC92/21 9408HE18/25(humaLOG/novoLO G PEN)Insts (1)ZQ8728Thttqnageat5 AJSAOM6107/17 2200AC109/20(XALATAN 0.005% IEUDPQ0601EMBQ)Pantoprazol e Xvuenr26 DVTGUOTS94/22 9947NF58/26(PROTONIX TAB)KK1582Qqyqzrxaycg Bmlugs60 MGQHS07/17 0356GY05/25(PRAVACHOL TAB)XJ2940Komaql Chloride3 EKG2I75/21 9194PN85/25(Sodium MuzgtleyAG58128.9% FLUSH D.SYR)Sodium Chloride3 MLPRN PRN109/16 1100AC(Sodium ChlorideIV0.9% FLUSH D.SYR)Tamsulosin HCl0.4 CKRMXCNM23/25 8242OL69/26(FLOMAX CAP)TS6852Lbpqulredbwftgur e OJf905 UHJ6FLFO PRN109/16 1100AC(TIGAN VIAL)IMZolpidem Tartrate5 MGQHSPRN PRN109/16 1100AC(AMBIEN TAB)PODose Instructions:(1)Insulin Human Lispro (humaLOG/novoLOG PEN):2-10 UnitsLab 24hr (CBC/BMP Fishbone)07/22/18 1110:Whole Bld Glucose 84 L11 0625:Whole Bld Glucose 0531:[Embedded Image Not Available]Anion Gap 8, Est GFR ( Amer) 26, Est GFR (Non-Af Amer) 21, BUN/Creatinine Ratio 22,Glucose 74, Total Calcium 7.4 L, Nxc-Z-Esovwxuwvop Pept 50034 H109/20/17 2034:Whole Bld Glucose 138 H109/20/17 1620:Whole [...] 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.DisclaimerThi s dictation was created using voice recognition software.Phonetic and/or minor grammatical errors may exist.eSign Date and TimeSigrid Hodge MD Verified/Reviewed by 07/22/18 1441 [facility] Protein mass [facility] PROG.NEPHon 07-22-2018 Protein mass [facility] Protein mass [facility] Patient Name: VALENTE QUINONES [employer] Date of : [address] [address] Unit Number: [id number] Number: [id number] Note-Nephrology Patient Status: ADM INAttending Doctor: Jensen Peguero DOService Date: 07/22/18 1152Progress Note-Nephrology([facility])Subj ectiveSubjective:Seen and examined. Up in a chair. Overall feels better. No acute events overnightObjectiveVital Signs:Vital Signs (Last)ResultDate TimePulse Wb0911/26 0815B/P143/6211 5139Sktt26.011 3953Wyasc1025/26 3134Oiwt8450/26 0815O2 DeliveryNASAL OHUPFQV75/22 0440O2 Flow Ritn120/22 0440IandO 24 Hour Vfhtbcx77/26 0000Intake Yqtsp1507Jyndnz Udzvc0314Lyxhnyk-79Znbsfv, PB661Cgluec, Jrtf1188Mchpsf, Hnwqo2Eygcaz, Szdum4284Sybu:Lungs-clearH eart-regularLower extremity-no edemaMedications:Medicatio ns CurrentSig/SchStart timeLastMedicationDoseRout eStop TimeStatusAdminAl Hydrox/Mg Hydrox/30 KCY1DEJW PRN109/16 1100ACSimethiconePO(MAALOX (ALAMAG)PLUSORAL LIQ)Lbektww890 RXQIQQZO01/22 6861IW42/26(ECOTRIN TAB.EC)KY3641Snrnxoijxlhll ne HCl25 PXN2BDEM PRN109/16 1100AC(BENADRYL CAP)PODocusate Fqkdlha454 MGQ12H@21109/16 2099AC109/21(SURFAK CAP)MP2289Ctxyyhubm Mesylate2 MGBID109/16 2099AC109/21(CARDURA TAB)ZI8314Gbdjxnhpgi Cbudsz54 YSQ00M21/22 7185WT91/26(LOVENOX D.SYR)MO1801Eocwzygvqc89 MGBID.30AC109/21 8142HB88(LASIX TAB)IP3438Lnvpjxnkqb675 MGQHS07/17 2200AC109/20(NEURONTIN CAP)OS9734Wkrtgelgjnt Bitart/1 WYLBN3BVCK PRN109/18 1430ACAcetaminophenPO(NORC O 5-325 TAB)Hydrocodone Bitart/2 TKPTT6FVHU PRN109/18 0966GH47/26AcetaminophenPO 0710(NORCO 5-325 TAB)Hydromorphone HCl2 QUF8QLNK PRN109/16 1100AC(DILAUDID D.SYR)IMInsulin Dthrvovf55 OROCLRIE00/22 5619LJ40/25(LANTUS SOLOSTAR PEN)SO3213Jhzrysh Human LisproSee ZhvdAYDJ11/21 3497XE05/25(humaLOG/novoLO G PEN)Insts (1)XI1180Lxgcvreoigd7 UUTFOH4407/17 2200AC109/20(XALATAN 0.005% XKSQCM5801CLAU)Pantoprazol e Gpjeuj54 KUOCPJUR04/22 8196TB30/26(PROTONIX TAB)RK0695Odnuoujkxlx Ulojjv55 MGQHS07/17 2200AC109/20(PRAVACHOL TAB)TQ1707Vsdlpg Chloride3 UAZ2G87/21 8289XX13/25(Sodium KytgzqqpEG38363.9% FLUSH D.SYR)Sodium Chloride3 MLPRN PRN109/16 1100AC(Sodium ChlorideIV0.9% FLUSH D.SYR)Tamsulosin HCl0.4 AZFGCHKH72/25 1260HM92/26(FLOMAX CAP)FV3979Bsvsbjjcbyeaoxor e IFw485 FQO8OXIK PRN109/16 1100AC(TIGAN VIAL)IMZolpidem Tartrate5 MGQHSPRN PRN109/16 1100AC(AMBIEN [...] By: LOAN GUERRERO M.D.Lab Results:Lab 24hr (CBC/BMP [facility])07/22/18 1110:Whole Bld Glucose 84 L109/21/17 0625:Whole Bld Glucose 0531:[Embedded Image Not Available]Anion Gap 8, Est GFR ( Amer) 26, Est GFR (Non-Af Amer) 21, BUN/Creatinine Ratio 22,Glucose 74, Total Calcium 7.4 L, Oaq-W-Uzejqgfbpcf Pept 41724 H109/20/17 2034:Whole Bld Glucose 138 H109/20/17 1620:Whole [...] Sullivan MD Verified/Reviewed by 07/22/18 1157 Normal [facility] [place] PROG.ORTHOon 07-22-2018 Protein mass conc [facility] Patient Name: MAURI QUINONES13[address] [employer] Date of : [address] [address] Unit Number: [id number] Number: [id number] Note-Ortho Patient Status: ADM INAttending Doctor: Jensen Peguero DOService Date: 07/22/18 0944Progress Note - OrthoSubjectiveS: (2 ROS minimum)Patient seen and examined, continues to do very well. He is only complaining of minimalpain in his right hip that is well controlled with oral pain medications.ObjectiveNursi ng VitalsVital Signs (Last)ResultDate TimePulse Ro6543/25 2320B/P152/7411/25 1678Duph76.411/25 8820Zuutr0623/25 5955Deky5358/25 2320O2 DeliveryNASAL UUKNYDG71/22 0440O2 Flow Gkwu060/22 0440Physical ExamGeneral: Alert and oriented x3, no acute distressLE: SILT L2-S15/5 strength with DF/PF/EHL2+ distal pulses- calf tendernessDressing clean, dry, intactDiagnostic DataLab 24hr (CBC/BMP Fishbone)07/22/18 0625:Whole Bld Glucose 0531:[Embedded Image Not Available]Anion Gap 8, Est GFR ( Amer) 26, Est GFR (Non-Af Amer) 21, BUN/Creatinine Ratio 22,Glucose 74, Total Calcium 7.4 L, Xnt-U-Kwtkoatvvhw Pept 00490 07/21/18 2034:Whole Bld Glucose 138 H109/20/17 1620:Whole [...] Verified/Reviewed by 07/22/18 Jensen Hewitt DO Normal [facility] Protein mass conc Normal [facility] BMPon 07-21-2018 Anion gap 3 molar conc 8 mmol/L Normal 5-16 [facility] Comment on above: Order Comment: Campu s: MIs This Patient Going To Surgery? YSurgery Date: 02/20/18 Performed By: #### L 500.79649, L500.66347 ####[facility] VKNPBXOBMA6040 [place], [place] [address]Es# [phone] Calcium mass conc 7.6 mg/dL Low 8.5-10.1 [facility] Comment on above: Order Comment: Campu s: MIs This Patient Going To Surgery? YSurgery Date: 02/20/18 Performed By: #### L 500.78606, L500.87678 ####[facility] YRBDWMVVGV0419 [place], [place] [address]Ec# [phone] Chloride molar conc 93 mmol/L Low 98-107 [facility] Comment on above: Order Comment: Campu s: MIs This Patient Going To Surgery? YSurgery Date: 02/20/18 Performed By: #### L 500.86224, L500.65177 ####[facility] XZUPOPEHRW7139 [place], [place] [address]Dt# [phone] CO2 molar conc 27 mmol/L Normal 21-32 [facility] [place] Comment on above: Order Comment: Campu s: MIs This Patient Going To Surgery? YSurgery Date: 02/20/18 Performed By: #### L 500.35439, L500.38252 ####[facility] ZAGZVTBMNR2839 [place], [place] [address]Hh# [phone] Creatinine mass conc 3.310 mg/dL High 0.670-1.170 [facility] [place] Comment on above: Order Comment: Campu s: MIs This Patient Going To Surgery? YSurgery Date: 02/20/18 Result Comment: Macrina ents receiving either N-Acetylcysteine (NAC) orMetamizole prior to venipuncture, may have falsely depressedresults. Performed By: #### L 500.46625, L500.89777 ####[facility] JZPPISZMDP0690 [place], [place] [address]Us# [phone] Glucose mass conc 74 mg/dL Normal 70-100 [facility] [place] Comment on above: Order Comment: Campu s: MIs This Patient Going To Surgery? YSurgery Date: 02/20/18 Result Comment: 70-1 00- Normal Fasting; 100-125 Impaired Fasting; greaterthan 126 on more than one result- Diabetes. ADA guidelines.Results may be falsely elevated after the administration ofSulfapyridine.Results may be falsely depressed after the administration ofSulfasalazine. Performed By: #### L 500.67511, L500.35179 ####[facility] VBGKKURAIE4838 [place], [place] [address]Et# [phone] Potassium molar conc 5.0 mmol/L Normal 3.5-5.1 [facility] [place] Comment on above: Order Comment: Campu s: MIs This Patient Going To Surgery? YSurgery Date: 02/20/18 Performed By: #### L 500.78866, L500.01915 ####[facility] ZAYKUWHRGI2596 [place], [place] [address]Rs# [phone] Sodium molar conc 128 mmol/L Low 136-145 [facility] [place] Comment on above: Order Comment: Campu s: MIs This Patient Going To Surgery? YSurgery Date: 02/20/18 Performed By: #### L 500.69836, L500.80111 ####[facility] PPVHXSTSMH2423 [place], [place] [address]Us# [phone] Urea nitrogen mass conc 69 mg/dL High 7-26 [facility] Comment on above: Order Comment: Campu s: MIs This Patient Going To Surgery? YSurgery Date: 02/20/18 Performed By: #### L 500.67253, L500.30941 ####[facility] LXEXXZAVJE7108 [place], [place] [address]Dy# [phone] Urea nitrogen/Creatinine mass ratio 21 mg/mg Normal 15-24 [facility] Comment on above: Order Comment: Campu s: MIs This Patient Going To Surgery? YSurgery Date: 02/20/18 Performed By: #### L 500.45336, L500.80851 ####[facility] MRURSQOKFH2186 [place], [place] [address]Kr# [phone] Anion gap 3 molar conc 8 mmol/L Normal 5-16 [facility] Comment on above: Order Comment: Campu s: MIs This Patient Going To Surgery? YSurgery Date: 02/20/18 Performed By: #### L 500.86036, L500.95366 ####[facility] XYESVRQOFA3050 [place], [place] [address]Cp# [phone] Calcium mass conc 7.5 mg/dL Low 8.5-10.1 [facility] [place] Comment on above: Order Comment: Campu s: MIs This Patient Going To Surgery? YSurgery Date: 02/20/18 Performed By: #### L 500.56653, L500.86944 ####[facility] DQMJYMUCSB6577 [place], [place] [address]Mh# [phone] Chloride molar conc 91 mmol/L Low 98-107 [facility] Comment on above: Order Comment: Campu s: MIs This Patient Going To Surgery? YSurgery Date: 02/20/18 Performed By: #### L 500.41819, L500.97757 ####[facility] DDRUEMSYIH0292 [place], [place] [address]Xx# [phone] Order Comment: Campu s: M Performed By: #### L 500.96897, L500.26171, L500.73018, L500.05883 ####[facility] RQJCTBIGYP1695 [place], [place] [address]Qf# [phone] CO2 molar conc 27 mmol/L Normal 21-32 [facility] Comment on above: Order Comment: Campu s: MIs This Patient Going To Surgery? YSurgery Date: 02/20/18 Performed By: #### L 500.58362, L500.52406 ####[facility] CTXSIYIMGI4555 [place], [place] [address]Jk# [phone] Creatinine mass conc 3.260 mg/dL High 0.670-1.170 [facility] Comment on above: Order Comment: Campu s: MIs This Patient Going To Surgery? YSurgery Date: 02/20/18 Result Comment: Macrina ents receiving either N-Acetylcysteine (NAC) orMetamizole prior to venipuncture, may have falsely depressedresults. Performed By: #### L 500.22800, L500.45416 ####[facility] YINQGPRULN6414 [place], [place] [address]Gr# [phone] Glucose mass conc 154 mg/dL High 70-100 [facility] Comment on above: Order Comment: Campu s: MIs This Patient Going To Surgery? YSurgery Date: 02/20/18 Result Comment: 70-1 00- Normal Fasting; 100-125 Impaired Fasting; greaterthan 126 on more than one result- Diabetes. ADA guidelines.Results may be falsely elevated after the administration ofSulfapyridine.Results may be falsely depressed after the administration ofSulfasalazine. Performed By: #### L 500.11848, L500.54512 ####[facility] MFVAFAMFFF8825 [place], [place] [address]El# [phone] Potassium molar conc 5.0 mmol/L Normal 3.5-5.1 [facility] Comment on above: Order Comment: Campu s: MIs This Patient Going To Surgery? YSurgery Date: 02/20/18 Performed By: #### L 500.22055, L500.82575 ####[facility] FRHYGWENTY5179 [place], [place] [address]Gs# [phone] Sodium molar conc 126 mmol/L Low 136-145 [facility] Comment on above: Order Comment: Campu s: MIs This Patient Going To Surgery? YSurgery Date: 02/20/18 Performed By: #### L 500.43338, L500.64291 ####[facility] TKLCXNJVVB0974 [place], [place] [address]Zx# [phone] Urea nitrogen mass conc 68 mg/dL High 7-26 [facility] Comment on above: Order Comment: Campu s: MIs This Patient Going To Surgery? YSurgery Date: 02/20/18 Performed By: #### L 500.04764, L500.35337 ####[facility] AWEEFWKGPE0178 [place], [place] [address]Qy# [phone] Urea nitrogen/Creatinine mass ratio 21 mg/mg Normal 15-24 [facility] Comment on above: Order Comment: Campu s: MIs This Patient Going To Surgery? YSurgery Date: 02/20/18 Performed By: #### L 500.48608, L500.68844 ####[facility] HFDSYQVIVH7134 [place], [place] [address]Lc# [phone] GFR ESTon 07-21-2018 IF AMER 23 ML/MIN Normal [facility] Comment on above: Order Comment: Campu s: MIs This Patient Going To Surgery? YSurgery Date: 02/20/18 Performed By: #### L 500.03132, L500.32452 ####[facility] OFNHJDXNHB7830 [place], [place] [address]Pz# [phone] IF non-AFR AMER 19 ML/MIN Normal [facility] [place] Comment on above: Order Comment: Campu s: MIs This Patient Going To Surgery? YSurgery Date: 02/20/18 Performed By: #### L 500.77694, L500.86417 ####[facility] FCUJVPNUTB8320 [place], [place] [address]Bi# [phone] IF AMER 24 ML/MIN Normal [facility] [place] Comment on above: Order Comment: Campu s: MIs This Patient Going To Surgery? YSurgery Date: 02/20/18 Performed By: #### L 500.46762, L500.18742 ####[facility] MIRPSPKPKC5462 [place], [place] [address]Ni# [phone] IF non-AFR AMER 19 ML/MIN Normal [facility] Comment on above: Order Comment: Campu s: MIs This Patient Going To Surgery? YSurgery Date: 02/20/18 Performed By: #### L 500.90914, L500.24353 ####[facility] UIPATQKCFX5690 [place], [place] [address]Oe# [phone] Order Comment: Campu s: M Performed By: #### L 500.09548, L500.61388, L500.57234, L500.63003 ####[facility] IUWXREEQHX9531 [place], [place] [address]Kg# [phone] GLUCOSE METERon 07-21-2018 Glucose mass conc 138 mg/dL High 85-125 [facility] Gl[facility] mass conc 193 mg/dL High 85-125 [facility] [place] Glucose mass conc 138 mg/dL High 85-125 [facility] [place] Glucose mass conc 73 mg/dL Low 85-125 [facility] [place] PROG IMSon 07-21-2018 Protein [facility] conc [facility] Patient Name: MAURI QUINONES1320 [facility] Date of : [address] [place] [address] Unit Number: [id number] Number: [id number] Note-Hospitalist Patient Status: ADM INAttending Doctor: Jensen Peguero DOService Date: 07/21/18 1441Chief ComplaintChief ComplaintRight hip painSubjectiveS: (2 ROS minimum)Patient remained stable with no chest pain or shortness of breath, denied any abdominalpain nausea vomiting or diarrhea.Objective (ROS)Nursing VitalsVital Signs (Last)ResultDate TimePulse Ae8926 0745B/P139/6711 8952Xnlj18.611 2900Xxxhk9418/25 4456Wrml5984/25 0745O2 DeliveryNASAL OPICFKV62/22 0440O2 Flow Kefo890/22 0440General AppearanceComfortablePhysi sabrina ExamPhysical Examination NotesNeurological / Psychiatric Alert, Orientation S1RSJMR EOMI, PERRLNeck No JVD, No Enlarged ThyroidRespiratory Normal Breathing Effort, Clear LungsCardiovascular Heart RRR, No M / R / GGastrointestinal Normal Bowel Sounds, Non TenderMusculoskeletal No EdemaSkin No Rash, Warm / DryDiagnostic Data:Medications CurrentSig/SchStart timeLastMedicationDoseRout eStop TimeStatusAdminAl Hydrox/Mg Hydrox/30 VHW5FJRQ PRN109/16 1100ACSimethiconePO(MAALOX (ALAMAG)PLUSORAL LIQ)Tzdvajr345 LULLRDMZ73/22 1715BV48/25(ECOTRIN TAB.EC)OS7708Nobrnpzdsrgzj ne HCl25 GHH1VKWC PRN109/16 1100AC(BENADRYL CAP)PODocusate Mdlyxwd402 MGQ12H@21109/16 2715CC40/25(SURFAK CAP)BR8135Ssuvuwgpm Mesylate2 MGBID109/16 1724SQ21/25(CARDURA TAB)ZT0677Chtjqyymyp Hwfncb77 QBQ94Q9522 8099WX23/25(LOVENOX D.SYR)ZD0743Arzxflttpc001 MGQHS07/17 3611SB11/24(NEURONTIN CAP)TX9739Wwusnoxsrko Bitart/1 ZXNQM2KQPG PRN109/18 1430ACAcetaminophenPO(NORC O 5-325 TAB)Hydrocodone Bitart/2 OFIKF5JSSM PRN109/18 8039SO40/25AcetaminophenPO 0755(NORCO 5-325 TAB)Hydromorphone HCl2 NYK1MQXL PRN109/16 1100AC(DILAUDID D.SYR)IMInsulin Gtvsjeac30 LEOEFURT06/22 9232RY95/24(LANTUS SOLOSTAR PEN)WZ8544Exhumnb Human LisproSee TcayIPGZ80/21 7343GJ00/24(humaLOG/novoLO G PEN)Insts (1)GQ7694Dzfticgdkjq9 ENJTDJ42/21 2941VM70/24(XALATAN 0.005% XWIJBW0963WTUU)Pantoprazol e Hubfhz41 WPDZGSWG13/22 0789VS27/25(PROTONIX TAB)BY8319Kgdflsqqkkg Awiccf78 MGQHS07/17 3634OU94/24(PRAVACHOL TAB)PT5027Nyneog Chloride3 ZHG7E05/21 2657AY76/25(Sodium LsuopuoqGW81392.9% FLUSH D.SYR)Sodium Chloride3 MLPRN PRN109/16 1100AC(Sodium ChlorideIV0.9% FLUSH D.SYR)Tamsulosin HCl0.4 QLBBAMMG03/25 7019PP78/25(FLOMAX CAP)SR2972Pfakwirdequukgtp e VKp815 ANH7UVDP PRN109/16 1100AC(TIGAN VIAL)IMZolpidem Tartrate5 MGQHSPRN PRN109/16 1100AC(AMBIEN [...] 2055:Whole Bld Glucose 197 H109/19/17 1839:Urine Osmolality 83159/2418 1619:Whole Bld Glucose 155 H1/18 1558:[Embedded Image Not Available]Serum Osmolality 297, Ove-I-Dqgmgynugpn Pept 88895 H, Thyroxine (T4) 8.5, T3 Uptake 38.0,TSH, [...] and TimeJaraSigrid reddy MD Verified/Reviewed by 07/21/18 0475 [facility] [place] FINLEYNEPHon 07-21-2018 Protein mass conc [facility] Patient Name: MAURI QUINONES1320 [address] [place] Date of : [address] [address] Unit Number: [id number] Number: [id number] Note-Nephrology Patient Status: ADM INAttending Doctor: Jensen Peguero DOService Date: 07/21/18 0931Progress Note-Nephrology([facility])Subj ectiveSubjective:Seen and examined. Resting comfortably. No acute events overnight. Voided 2 L ynbcbyzdg78 mg of LasixObjectiveVital Signs:Vital Signs (Last)ResultDate TimePulse Sc2588/25 0745B/P139/6707/21 0100Ewdj81.6109/20 3524Dhxyd8287/25 5129Rsrw6017/25 0745O2 DeliveryNASAL OEKWSZZ68/22 0440O2 Flow Ybnc385/22 0440IandO 24 Hour Wkoeuoz43/25 0000Intake Alwwe6409Nepguj Okgcx3757Ptsysic2566Sghwpz , Olns3976Mbxfsx, Whsds6Ssttfq, Fjobu4369Qvpo:Lungs-fine bibasilar cracklesHeart-regularLower extremity-no edemaMedications:Medicatio ns CurrentSig/SchStart timeLastMedicationDoseRout eStop TimeStatusAdminAl Hydrox/Mg Hydrox/30 APX3NEBT PRN109/16 1100ACSimethiconePO(MAALOX (ALAMAG)PLUSORAL LIQ)Dvadmkb736 TQQRKQRY73/22 1663IM58/25(ECOTRIN TAB.EC)GD6957Vlwynjzhbhkxo ne HCl25 WAC9FCVW PRN109/16 1100AC(BENADRYL CAP)PODocusate Pnoulpx206 MGQ12H@21109/16 7885MA20/25(SURFAK CAP)PB0519Yvhlmqytd Mesylate2 MGBID109/16 0922TS63/25(CARDURA TAB)SJ4371Jgyidpcznt Uiriii56 MCJ76L94/22 5373GP20/25(LOVENOX D.SYR)IB8044Qdyjga Uvuwpx000 ZQBXUW22/24 9724GS71/54HvjrxxfxkKG98/2 5 40365647(FERRLECIT AMP)Sodium Reaysspi121 ML(Sodium Chloride0.9%)Jkyhzxfovy481 MGQHS11 2432XM50/24(NEURONTIN CAP)PL1367Vyjaumhramy Bitart/1 LKFBE3UNZU PRN109/18 1430ACAcetaminophenPO(NORC O 5-325 TAB)Hydrocodone Bitart/2 QJDRH5BVDM PRN109/18 0555PR18/25AcetaminophenPO 0755(NORCO 5-325 TAB)Hydromorphone HCl2 APL0QCNU PRN109/16 1100AC(DILAUDID D.SYR)IMInsulin Nmrvwdio08 CJFAWEKW28/22 1624JJ65/24(LANTUS SOLOSTAR PEN)NX8318Hnfkzmn Human LisproSee PrdvKZSB81/21 7441US05/24(humaLOG/novoLO G PEN)Insts (1)JD3805Njonpcwdvcu1 XVSLSX8007/17 2200AC109/19(XALATAN 0.005% MYBQNA9977GJPS)Pantoprazol e Avvdai20 DELEKQMM91/22 8526JK91/25(PROTONIX TAB)XY6616Vsnncoidmcq Lcvxhz44 MGQHS07/17 0491DP26/24(PRAVACHOL TAB)YF8972Jcxbfa Chloride3 JXA3U46 3374YC04/25(Sodium FaanpnspXN97827.9% FLUSH D.SYR)Sodium Chloride3 MLPRN PRN109/16 1100AC(Sodium ChlorideIV0.9% FLUSH D.SYR)Trimethobenzamide GFs004 MHB8ZMBT PRN109/16 1100AC(TIGAN VIAL)IMZolpidem Tartrate5 MGQHSPRN PRN109/16 1100AC(AMBIEN [...] L109/19/172054:Whole Bld Glucose 197 H109/19/17 1839:Urine Osmolality 02332 1619:Whole Bld Glucose 155 H109/19/17 1558:[Embedded Image Not Available]Serum Osmolality 297, Eov-Y-Jzsflwdgjxs Pept 89593 H, Thyroxine (T4) 8.5, T3 Uptake 38.0,TSH, Ultra Sensitive 1.36626 1127:Whole Bld Glucose 152 HAssessment/PlanAssessment /Problem List:1. [...] TimeJameson Sullivan MD Verified/Reviewed by 07/21/18 0936 [facility] [place] Protein mass [facility] [place] PROG.ORTHOon 07-21-2018 Protein mass [facility] [place] Protein mass [facility] Patient Name: MAURI QUINONES13[address] [place] Date of : [address] [address] Unit Number: [id number] Number: [id number] Note-Ortho Patient Status: ADM INAttending Doctor: Jensen [...] he would like.ObjectiveNursing VitalsVital Signs (Last)ResultDate TimePulse Qc2667/24 2320B/P146/7511/24 4437Lqnc86.411/24 4065Coqmd0434/24 2101Ysnr1353/24 2320O2 DeliveryNASAL ETUIRHD06/22 0440O2 Flow Ofnb042/22 0440Physical ExamRLEDressing dry and intact.Skin surrounding incision [...] 2055:Whole Bld Glucose 197 H109/19/18 1839:Urine Osmolality 49674/24/18 1619:Whole Bld Glucose 155 H11/24/18 1558:[Embedded Image Not Available]Serum Osmolality 297, Hzu-W-Erfmwdlfobb Pept 86429 H, Thyroxine (T4) 8.5, T3 Uptake 38.0,TSH, Ultra Sensitive 1.40649//18 1127:Whole Bld Glucose 152 H11/24/18 0833:Troponin I [...] Date and TimeDRigoberto sewell DO Verified/Reviewed by 07/21/18 Jensen Fuller DO Normal [facility] BMPon 07-20-2018 Anion gap 3 molar conc 9 mmol/L Normal 5-16 [facility] Comment on above: Order Comment: Campu s: M Performed By: #### L 500.23962, L500.03335, L500.60613, L500.72382 ####[facility] SJRQNXQBWY2054 [place], [place] [address]Bu# [phone] Calcium mass conc 7.6 mg/dL Low 8.5-10.1 [facility] Comment on above: Order Comment: Campu s: M Performed By: #### L 500.78767, L500.23203, L500.15549, L500.68499 ####[facility] XJZPCOWENB8611 [place], [place] [address]Ti# [phone] CO2 molar conc 28 mmol/L Normal 21-32 [facility] Comment on above: Order Comment: Campu s: M Performed By: #### L 500.17770, L500.54701, L500.20335, L500.55636 ####[facility] TVDTECMSPB0141 [place], [place] [address]Jw# [phone] Creatinine mass conc 3.360 mg/dL High 0.670-1.170 [facility] [place] Comment on above: Order Comment: Jorgeu s: M Result Comment: Macrina ents receiving either N-Acetylcysteine (NAC) orMetamizole prior to venipuncture, may have falsely depressedresults. Performed By: #### L 500.60978, L500.25443, L500.97419, L500.39795 ####[facility] TNYNZYYJCV6619 [place], [place] [address]Ky# [phone] Glucose mass conc 115 mg/dL High 70-100 [facility] Comment on above: Order Comment: Jorgeu s: M Result Comment: 70-1 00- Normal Fasting; 100-125 Impaired Fasting; greaterthan 126 on more than one result- Diabetes. ADA guidelines.Results may be falsely elevated after the administration ofSulfapyridine.Results may be falsely depressed after the administration ofSulfasalazine. Performed By: #### L 500.11837, L500.39973, L500.68799, L500.96578 ####[facility] XLQLSIQDVZ8862 [place], [place] [address]Jh# [phone] Sodium molar conc 128 mmol/L Low 136-145 [facility] Comment on above: Order Comment: Jorgeu s: M Performed By: #### L 500.97135, L500.29823, L500.64915, L500.60614 ####[facility] RDYYRBIJII2217 [place], [place] [address]Hs# [phone] Urea nitrogen/Creatinine mass ratio 19 mg/mg Normal 15-24 [facility] Comment on above: Order Comment: Jorgeu s: M Performed By: #### L 500.60207, L500.31011, L500.93745, L500.85952 ####[facility] ZYVRDODINQ1572 [place], [place] [address]Fn# [phone] Anion gap 3 molar conc 8 mmol/L Normal 5-16 [facility] Comment on above: Order Comment: Campu s: M Performed By: #### L 500.60562, L500.72551, L500.80574, L500.84263 ####[facility] SEWWXBNQQD9664 [place], [place] [address]Xw# [phone] Calcium mass conc 7.8 mg/dL Low 8.5-10.1 [facility] Comment on above: Order Comment: Campu s: M Performed By: #### L 500.06102, L500.95797, L500.16215, L500.41927 ####[facility] AAJHVUUMFR1545 [place], [place] [address]Xg# [phone] Chloride molar conc 92 mmol/L Low 98-107 [facility] Comment on above: Order Comment: Campu s: M Performed By: #### L 500.78969, L500.18067, L500.69289, L500.39091 ####[facility] PZTMSOXYVC7721 [place], [place] [address]Su# [phone] CO2 molar conc 29 mmol/L Normal 21-32 [facility] Comment on above: Order Comment: Campu s: M Performed By: #### L 500.28185, L500.40417, L500.09312, L500.69010 ####[facility] OFMEIBMDQM1483 [place], [place] [address]Lw# [phone] Creatinine mass conc 3.280 mg/dL High 0.670-1.170 [facility] Comment on above: Order Comment: Campu s: M Result Comment: Macrina ents receiving either N-Acetylcysteine (NAC) orMetamizole prior to venipuncture, may have falsely depressedresults. Performed By: #### L 500.96915, L500.96723, L500.32317, L500.05345 ####[facility] LFURAXEIWO1708 [place], [place] [address]Cl# [phone] Glucose mass conc 119 mg/dL High 70-100 [facility] Comment on above: Order Comment: Campu s: M Result Comment: 70-1 00- Normal Fasting; 100-125 Impaired Fasting; greaterthan 126 on more than one result- Diabetes. ADA guidelines.Results may be falsely elevated after the administration ofSulfapyridine.Results may be falsely depressed after the administration ofSulfasalazine. Performed By: #### L 500.23849, L500.87389, L500.27721, L500.82528 ####[facility] SMCVNSCYMG7185 [place], [place] [address]Nh# [phone] Potassium molar conc 5.4 mmol/L High 3.5-5.1 [facility] Comment on above: Order Comment: Campu s: M Performed By: #### L 500.73382, L500.25717, L500.90525, L500.34686 ####[facility] DLAGKPNZHL7848 [place], [place] [address]Dy# [phone] Sodium molar conc 129 mmol/L Low 136-145 [facility] Comment on above: Order Comment: Campu s: M Performed By: #### L 500.59370, L500.92971, L500.37246, L500.22082 ####[facility] LMNYDHMJHB2967 [place], [place] [address]Tu# [phone] Urea nitrogen mass conc 64 mg/dL High 7- [facility] Comment on above: Order Comment: Campu s: M Performed By: #### L 500.62083, L500.88701, L500.66810, L500.05207 ####[facility] NMNELQBQRO2882 [place], [place] [address]Hx# [phone] Urea nitrogen/Creatinine mass ratio 20 mg/mg Normal 15- [facility] Comment on above: Order Comment: Campu s: M Performed By: #### L 500.07968, L500.67206, L500.67809, L500.96681 ####[facility] GFZEUHLQJD8833 [place], [place] [address]Ww# [phone] CBCon 07-20-2018 Erythrocyte distribution width Auto Ratio (RBC) 17.5 % High 14.5 [facility] Comment on above: Order Comment: Campu s: M Performed By: #### L 500.10994, L500.20902, L500.24873, L500.61537 ####[facility] [id number] [place], [place] [address]Ax# [phone] Hematocrit Auto Volume Fraction (Bld) 29.6 % Low 41.0-53.0 [facility] Comment on above: Order Comment: Campu s: M Performed By: #### L 500.51606, L500.67628, L500.94136, L500.08361 ####[facility] [id number] [place], [place] [address]Ew# [phone] Hemoglobin mass conc (Bld) 9.4 g/dL Low 13.5-17.5 [facility] Comment on above: Order Comment: Campu s: M Performed By: #### L 500.90365, L500.33664, L500.57666, L500.18146 ####[facility] [id number] [place], [place] [address]Ln# [phone] MCHC Auto mass conc (RBC) 31.8 g/dL Low 32.0-36.0 [facility] Comment on above: Order Comment: Campu s: M Performed By: #### L 500.80153, L500.21604, L500.65584, L500.10342 ####[facility] [id number] [place], [place] [address]Hn# [phone] MCV Auto Entitic volume (RBC) 92.5 fL Normal 80.0-99.0 [facility] Comment on above: Order Comment: Campu s: M Performed By: #### L 500.37146, L500.22825, L500.00655, L500.43836 ####[facility] [id number] [place], [place] [address]Lx# [phone] Nucleated RBC/100 WBC Ratio (Bld) 0.0 % Normal Less than 1 [facility] Comment on above: Order Comment: Campu s: M Performed By: #### L 500.95209, L500.87027, L500.24940, L500.38756 ####[facility] [id number] [place], [place] [address]Ir# [phone] Platelet mean volume Auto Entitic volume (Bld) 10.0 fL Normal 9.4-12.4 [facility] Comment on above: Order Comment: Campu s: M Performed By: #### L 500.86728, L500.47523, L500.69944, L500.06403 ####[facility] [id number] [place], [place] [address]Ig# [phone] Platelets Auto #/vol (Bld) 193 K/CU MM Normal 150-450 [place] [facility] Comment on above: Order Comment: Campu s: M Performed By: #### L 500.53319, L500.06330, L500.56109, L500.67174 ####[facility] [id number] [place] [address]Xk# [phone] RBC Auto #/vol (Bld) 3.20 M/CU MM Low 4.50-6.00 [facility] [place] Comment on above: Order Comment: Campu s: M Performed By: #### L 500.49437, L500.71456, L500.03074, L500.46898 ####[facility] IRFVKVNTQF2780 [place], [place] [address]Bj# [phone] WBC Auto #/vol (Bld) 7.4 K/CU MM Normal 4.5-11.0 [facility] [place] Comment on above: Order Comment: Campu s: M Performed By: #### L 500.46452, L500.61224, L500.15926, L500.31643 ####[facility] BVPUDQGAHB7663 [place], [place] [address]Du# [phone] GFR ESTon 07-20-2018 IF AMER 23 ML/MIN Normal [facility] Comment on above: Order Comment: Campu s: M Performed By: #### L 500.34609, L500.34592, L500.73807, L500.87564 ####[facility] EEENPNQPJK3850 [place], [place] [address]Lk# [phone] IF non-AFR AMER 19 ML/MIN Normal [facility] Comment on above: Order Comment: Campu s: M Performed By: #### L 500.03315, L500.83981, L500.15039, L500.60682 ####[facility] UJZMWEHESJ8616 [place], [place] [address]Fi# [phone] GLUCOSE METERon 07-20-2018 Glucose mass conc 197 mg/dL High 85-125 [facility] Glucose mass conc 155 mg/dL High 85-125 [facility] Glucose mass conc 152 mg/dL High 85-125 [facility] Glucose mass conc 124 mg/dL Normal 85-125 [facility] [place] Demetrius 07-20-2018 Potassium molar conc 5.8 mmol/L High 3.5-5.1 [facility] Comment on above: Order Comment: Campu s: MIs This Patient Going To Surgery? YSurgery Date: 02/20/18 Performed By: #### L 500.94176, L500.40940, L500.54328, L500.92255 ####[facility] LPRIFBYCCX2604 [place], [place] [address]Hu# [phone] OSMO SERUMon 07-20-2018 OSMO SERUM 297 MOSM/KG Normal 280-300 [facility] Comment on above: Order Comment: Campu s: MIs This Patient Going To Surgery? YSurgery Date: 02/20/18 Performed By: #### L 500.85565, L500.54526, L500.27147, L500.32391 ####[facility] LPJTIJGQAJ1359 [place], [place] [address]Lh# [phone] PBNP TESTon 07-20-2018 Natriuretic peptide B mass conc (Bld) 32086 pg/mL High 0-900 [facility] Comment on above: Order Comment: Campu s: MIs This Patient Going To Surgery? YSurgery Date: 02/20/18 Result Comment: NT-p roBNP results of less than 300 pg/ml effectively rulesout acute congestive heart failure with 99% negativepredictive value. Performed By: #### L 500.36595, L500.49128, L500.78801, L500.60946 ####[facility] HKQBLVUUIJ4443 [place], [place] [address]Bl# [phone] PROG IMSon 07-20-2018 Protein mass conc Normal [facility] [place] Protein mass [facility] Patient Name: MAURI QUINONES1320 [facility] Date of : [address], [place] [address] Unit Number: [id number] Number: [id number] Note-Hospitalist Patient Status: ADM INAttending Doctor: Jensen Peguero DOService Date: 07/20/18 1452Chief ComplaintChief ComplaintRight hip painSubjectiveS: (2 ROS minimum)No chest pain or shortness of breath, no abdominal pain nausea or vomiting.Objective (ROS)Nursing VitalsVital Signs (Last)ResultDate TimePulse Tc5890/24 0802B/P125/7011/24 4767Xfjd96.911/24 6287Zhjsk8013/24 3653Ncpd4312/24 0802O2 DeliveryNASAL PQRQCGF12/22 0440O2 Flow Ltrf386/22 0440General AppearanceComfortablePhysi sabrina ExamPhysical Examination NotesNeurological / Psychiatric Alert, Orientation Q2MOOXP EOMI, PERRLNeck No JVD, No Enlarged ThyroidRespiratory Normal Breathing Effort, Clear LungsCardiovascular Heart RRR, No M / R / GGastrointestinal Normal Bowel Sounds, Non TenderMusculoskeletal No EdemaSkin No Rash, Warm / DryDiagnostic Data:Medications CurrentSig/SchStart timeLastMedicationDoseRout eStop TimeStatusAdminAl Hydrox/Mg Hydrox/30 CHI2GATX PRN109/16 1100ACSimethiconePO(MAALOX (ALAMAG)PLUSORAL LIQ)Muaumqf007 QZXSEWCL29/22 2492RA26/24(ECOTRIN TAB.EC)MJ5387Ldygmyolwuhye ne HCl25 MKT0EHDB PRN109/16 1100AC(BENADRYL CAP)PODocusate Hmilzuz477 MGQ12H@2099AC109/19(SURFAK CAP)XF3165Ucviaemqf Mesylate2 MGBID109/16 5477IJ29/24(CARDURA TAB)TJ9806Khwvldryyo Fspsim21 WGV08Q73/22 1784LG30/24(LOVENOX D.SYR)NQ5552Gofqti Njorrv817 CIOYEE43/24 2782IHUaiiqyeyaKM40/25 0959(FERRLECIT AMP)Sodium Mlpwvamr813 ML(Sodium Chloride0.9%)Tszysjrvgu656 MGQHS07/17 2200AC109/18(NEURONTIN CAP)XQ9242Yvxtbtebpez Bitart/1 ASJTN8FTWO PRN109/18 1430ACAcetaminophenPO(NORC O 5-325 TAB)Hydrocodone Bitart/2 XGEUN0THGY PRN109/18 9853JX19/24AcetaminophenPO 1320(NORCO 5-325 TAB)Hydromorphone HCl2 TJA2QPEP PRN109/16 1100AC(DILAUDID D.SYR)IMInsulin Erquxzfm11 PZSYACXH45/22 8021BE92/22(LANTUS SOLOSTAR PEN)ME0681Lheknlu Human LisproSee LyuyVWOZ26/21 3436WR23/24(humaLOG/novoLO G PEN)Insts (1)OO5937Zphtpsivwzn9 CEVGQN1207/17 2200AC109/18(XALATAN 0.005% ANNMAR4218XYMQ)Pantoprazol e Xtfzuk60 WSNCVBKB62/22 0642QN19/24(PROTONIX TAB)EY3222Wviozpuhufv Ggzsji45 MGQHS07/17 2200AC109/18(PRAVACHOL TAB)SO7383Vzjqcx Chloride3 QNV1V92/21 3452ER28/24(Sodium ZsyzbmlsPQ45533.9% FLUSH D.SYR)Sodium Chloride3 MLPRN PRN109/16 1100AC(Sodium ChlorideIV0.9% FLUSH D.SYR)Trimethobenzamide VZr417 YAG9XQCX PRN109/16 1100AC(TIGAN VIAL)IMZolpidem Tartrate5 MGQHSPRN PRN109/16 1100AC(AMBIEN TAB)PODose Instructions:(1)Insulin Human Lispro (humaLOG/novoLOG PEN):2-10 UnitsLab 24hr (CBC/BMP Fishbone)07/20/18 1127:Whole Bld Glucose 152 H11 0833:Troponin I 0.27378 0617:Whole Bld Glucose 57986 0608:[Embedded Image Not Available]Anion Gap 9, Est [...] MPV10.0, Nucleated RBCs 0.011 2045:Whole Bld Glucose 43272 1604:Whole Bld Glucose 119Assessment and PlanConclusion1. Urinary [...] kidney diseaseAcuteUltrasound of the kidneys came back normal.Senior Structural Engineer has been consulted.Continue to monitor BMPs4. ArthritisChronicTo [...] Lynch MD Verified/Reviewed by 07/20/18 1459 [facility]2018 Protein mass conc MTDD Normal [facility] Protein mass conc Normal [facility] THYROID PRO/TSHon 07-20-2018 T3 UP 38.0 % Normal 33.0-40.0 [facility] Comment on above: Order Comment: Kahlil s: MIs This Patient Going To Surgery? YSurgery Date: 02/20/18 Performed By: #### L 500.05154, L500.66997, L500.52816, L500.74038 ####[facility] WUVKBMUCGH0118 [place], [place] [address]Ua# [phone] T4 8.5 UG/DL Normal 4.5-12.1 [facility] Comment on above: Order Comment: Kahlil s: MIs This Patient Going To Surgery? YSurgery Date: 02/20/18 Result Comment: RESU LTS MAY BE FALSELY ELEVATED AFTER THE ADMINISTRATION OFSULFASALAZINE. Performed By: #### L 500.43020, L500.78645, L500.45147, L500.79071 ####[facility] UEFVIQAOVP1205 [place], [place] [address]Ru# [phone] Thyrotropin Qn 1.150 UIU/ML Normal 0.358-3.740 [facility] Comment on above: Order Comment: Kahlil s: MIs This Patient Going To Surgery? YSurgery Date: 02/20/18 Result Comment: 3rd generation ultra sensitive TSH Performed By: #### L 500.01320, L500.54279, L500.36380, L500.96995 ####[facility] HRNVURNMJX3663 [place], [place] [address]Jh# [phone] TROPONIN Ion 07-20-2018 Troponin I.cardiac mass conc 0.020 ng/mL Normal 0.000-0.045 [facility] Comment on above: Order Comment: Kahlil s: MIs This Patient Going To Surgery? YSurgery Date: 02/20/18 Performed By: #### L 550.14701 ####[facility] REFGOBZRHU5858 [place], [place] [address]Xb# [phone] UR OSMOon 07-20-2018 UR OSMO 237 MOSM/KG Normal 50-1200 [facility] Comment on above: Order Comment: Campu s: MIs This Patient Going To Surgery? YSurgery Date: 02/20/18 Performed By: #### L 600.65255 ####[facility] [id number] [place] [address]Qr# [phone] BMPon 07-19-2018 Anion gap 3 molar conc 7 mmol/L Normal 5-16 [facility] Comment on above: Order Comment: Campu s: M Performed By: #### L 500.02156, L500.66937, L500.42928, L500.58145 ####[facility] [address]JZVMWKLCU[address] [place] [address]Ml# [phone] Calcium mass conc 7.6 mg/dL Low 8.5-10.1 [facility] Comment on above: Order Comment: Campu s: M Performed By: #### L 500.15431, L500.59353, L500.02832, L500.22415 ####[facility] JYWZMLODAO6622 [place], [place] [address]Pe# [phone] Chloride molar conc 92 mmol/L Low 98-107 [facility] Comment on above: Order Comment: Campu s: M Performed By: #### L 500.51435, L500.18738, L500.23531, L500.95908 ####[facility] VZQCKVDUJE7388 [place], [place] [address]Nk# [phone] CO2 molar conc 28 mmol/L Normal 21-32 [facility] Comment on above: Order Comment: Campu s: M Performed By: #### L 500.03767, L500.45701, L500.17325, L500.52503 ####[facility] YIKPPPHHJY9854 [place], [place] [address]Bw# [phone] Creatinine mass conc 3.150 mg/dL High 0.670-1.170 [facility] [place] Comment on above: Order Comment: Jorgeu s: M Result Comment: Macrina ents receiving either N-Acetylcysteine (NAC) orMetamizole prior to venipuncture, may have falsely depressedresults. Performed By: #### L 500.36547, L500.54868, L500.01789, L500.70642 ####[facility] BKUPCSXSRT5934 [place], [place] [address]At# [phone] Glucose mass conc 73 mg/dL Normal 70-100 [facility] Comment on above: Order Comment: Jorgeu s: M Result Comment: 70-1 00- Normal Fasting; 100-125 Impaired Fasting; greaterthan 126 on more than one result- Diabetes. ADA guidelines.Results may be falsely elevated after the administration ofSulfapyridine.Results may be falsely depressed after the administration ofSulfasalazine. Performed By: #### L 500.45466, L500.51917, L500.38329, L500.67117 ####[facility] OPANMSSLCV4636 [place], [place] [address]Rx# [phone] Potassium molar conc 5.3 mmol/L High 3.5-5.1 [facility] Comment on above: Order Comment: Jorgeu s: M Performed By: #### L 500.90519, L500.26080, L500.58262, L500.78970 ####[facility] FOWALWGQLH3055 [place], [place] [address]Wq# [phone] Sodium molar conc 128 mmol/L Low 136-145 [facility] Comment on above: Order Comment: Jorgeu s: M Performed By: #### L 500.21531, L500.63358, L500.02921, L500.11887 ####[facility] EHDYDMTLPO0346 [place], [place] [address]Op# [phone] Urea nitrogen mass conc 58 mg/dL High 7-26 [facility] Comment [facility] above: Order Comment: Jorgeu s: M Performed By: #### L 500.85097, L500.34270, L500.24961, L500.79237 ####[facility] XROJKGXYCW9260 [place], [place] [address]Ao# [phone] Urea nitrogen/Creatinine mass ratio 19 mg/mg Normal 15-24 [facility] Comment on above: Order Comment: Campu s: M Performed By: #### L 500.24830, L500.42659, L500.94643, L500.07783 ####[facility] EBVZRBDDIJ[address] [place] [address]Ei# [phone] CBCon 07-19-2018 Erythrocyte distribution width Auto Ratio (RBC) 17.9 % High 11-14.5 [facility] Comment on above: Order Comment: Campu s: M Performed By: #### L 500.74248, L500.30592, L500.22724, L500.64196 ####[address] [address]Qk# [phone] Hematocrit Auto Volume Fraction (Bld) 28.8 % Low 41.0-53.0 [facility] Comment on above: Order Comment: Campu s: M Performed By: #### L 500.13540, L500.12289, L500.05161, L500.54109 ####[facility] JBTSYYWJJP9086 [place], [place] [address]Yr# [phone] Hemoglobin mass conc (Bld) 9.0 g/dL Low 13.5-17.5 [facility] Comment on above: Order Comment: Campu s: M Performed By: #### L 500.06562, L500.00301, L500.35778, L500.99388 ####[facility] XGCQJUXZKW4717 [place], [place] [address]Hg# [phone] MCHC Auto mass conc (RBC) 31.3 g/dL Low 32.0-36.0 [facility] Comment on above: Order Comment: Campu s: M Performed By: #### L 500.15097, L500.63595, L500.67848, L500.36212 ####[facility] FDXNSMJEVO9359 [place], [place] [address]Pt# [phone] MCV Auto Entitic volume (RBC) 92.3 fL Normal 80.0-99.0 [facility] Comment [facility] above: Order Comment: Campu s: M Performed By: #### L 500.69550, L500.14658, L500.52210, L500.46850 ####[facility] GDTOGGGTNA[address] [place], [place] [address]Ph# [phone] Nucleated RBC/100 WBC Ratio (Bld) 0.2 % Normal Less than 1 [facility] Comment on above: Order Comment: Campu s: M Performed By: #### L 500.09389, L500.63310, L500.99858, L500.10021 ####[address] [address]Dd# [phone] Platelet mean volume Auto Entitic volume (Bld) 9.8 fL Normal 9.4-12.4 [facility] Comment on above: Order Comment: Campu s: M Performed By: #### L 500.12817, L500.29423, L500.16301, L500.54423 ####[address] [address]Zs# [phone] Platelets Auto #/vol (Bld) 188 K/CU MM Normal 150-450 [facility] [place] Comment on above: Order Comment: Campu s: M Performed By: #### L 500.47004, L500.79542, L500.86507, L500.03948 ####[facility] QZGJFTIJJO[address] [place] [address]Dg# [phone] RBC Auto #/vol (Bld) 3.12 M/CU MM Low 4.50-6.00 [facility] [place] Comment on above: Order Comment: Campu s: M Performed By: #### L 500.67882, L500.24338, L500.26904, L500.57406 ####[facility] NSVNZYGOAH0500 [place], [place] [address]Hk# [phone] WBC Auto #/vol (Bld) 9.9 K/CU MM Normal 4.5-11.0 [facility] [place] Comment on above: Order Comment: Campu s: M Performed By: #### L 500.83687, L500.32578, L500.80284, L500.06148 ####[facility] KWMULZKOKE3991 [place], [place] [address]Nz# [phone] GFR ESTon 07-19-2018 IF AMER 25 ML/MIN Normal [facility] Comment on above: Order Comment: Campu s: M Performed By: #### L 500.17460, L500.66849, L500.02177, L500.30573 ####[facility] JWLTHLISTQ7416 [place], [place] [address]Oo# [phone] IF non-AFR AMER 20 ML/MIN [facility] Comment on above: Order Comment: Campu s: M Performed By: #### L 500.52339, L500.95016, L500.24049, L500.28797 ####[facility] ZGIMEPTYYJ7882 [place], [place] [address]Wm# [phone] GLUCOSE METERon 07-19-2018 Glucose mass conc 117 mg/dL Normal 85-125 [facility] Glucose mass conc 119 mg/dL Normal 85-125 [facility] Glucose mass conc 124 mg/dL Normal 85-125 [facility] Glucose mass conc 76 mg/dL Low 85-125 [facility] PROG IMSon 07-19-2018 Protein mass conc Normal [facility] Protein mass conc [facility] Patient Name: VALENTE QUINONES [facility] Date of : [address] [address] Unit Number: [id number] Number: [id number] Note-Hospitalist Patient Status: ADM INAttending Doctor: Jensen Peguero DOService Date: 07/19/18 1418Chief ComplaintChief ComplaintRight hip painSubjectiveS: (2 ROS minimum)No chest pain or shortness of breath, no abdominal pain nausea or vomiting, patient feelspretty good and denied any specific symptoms, he continued to have urinary retention andhad a Butler catheter placed.Objective (ROS)Nursing VitalsVital Signs (Last)ResultDate TimePulse Jo1763/ 0730B/P145/7311/ 3484Ilxs85.411/23 3989Lsvrm3478 7979Pqtj9004 0730O2 DeliveryNASAL GUVZCOY52/22 0440O2 Flow Oepr688/22 0440General AppearanceComfortablePhysi sabrina ExamPhysical Examination NotesNeurological / Psychiatric Alert, Orientation T7HDHPY EOMI, PERRLNeck No JVD, No Enlarged ThyroidRespiratory Normal Breathing Effort, Clear LungsCardiovascular Heart RRR, No M / R / GGastrointestinal Normal Bowel Sounds, Non TenderMusculoskeletal No EdemaSkin No Rash, Warm / DryDiagnostic Data:Medications CurrentSig/SchStart timeLastMedicationDoseRout eStop TimeStatusAdminAl Hydrox/Mg Hydrox/30 AWV1GCRE PRN109/16 1100ACSimethiconePO(MAALOX (ALAMAG)PLUSORAL LIQ)Tjmzexw931 SWZZSALB59/22 1628FT66/23(ECOTRIN TAB.EC)EX8096Ufftkgkxiqowf ne HCl25 ZDK4XLWS PRN109/16 1100AC(BENADRYL CAP)PODocusate Nufxowh522 MGQ12H@21109/16 2099AC109/18(SURFAK CAP)CT8239Jwbuzclqw Mesylate2 MGBID109/16 2099AC109/18(CARDURA TAB)BL3140Salfjcjewj Oqkkgv55 VLK52H21/22 2167OZ70/23(LOVENOX D.SYR)QA9974Yuphiagsqi944 MGQHS07/17 2200AC109/17(NEURONTIN CAP)GN6453Gfsczmpkhaqbf HCl2 CYS1CMUV PRN109/16 1100AC(DILAUDID D.SYR)IMInsulin Brotgxnb79 MZQKOEOB75/22 6854DH44/22(LANTUS SOLOSTAR PEN)GJ9244Sgoenyk Human LisproSee UkhuESNM59/21 0997GE82/22(humaLOG/novoLO G PEN)Insts (1)PP2600Eefbxaahjfd6 BTIYAY7407/17(XALATAN 0.005% RFWQOO7249BTFI)Pantoprazol e Scmefp34 FYMJDNGQ46/22 9089DJ66/23(PROTONIX TAB)GJ2198Ususeecrome Puaofv97 MGQHS07/17 0950HQ43/22(PRAVACHOL TAB)AN3670Kslwfu Chloride3 KBA7U22/21 5805UE81/23(Sodium JvojlxobLP79850.9% FLUSH D.SYR)Sodium Chloride3 MLPRN PRN109/16 1100AC(Sodium ChlorideIV0.9% FLUSH D.SYR)Trimethobenzamide SUq682 JAN6JZMD PRN109/16 1100AC(TIGAN VIAL)IMZolpidem Tartrate5 MGQHSPRN PRN109/16 1100AC(AMBIEN TAB)PODose Instructions:(1)Insulin Human Lispro (humaLOG/novoLOG PEN):2-10 UnitsLab 24hr (CBC/BMP Fishbone)07/19/18 1140:Ur Random Sodium 22, Ur Random Potassium 32.8, Ur Random Chloride LESS THAN 1140:Urine Color Yellow, Urine Appearance Hazy, Urine pH 5.0, Ur Specific [place] 1.009, UrineProtein 30, Urine Glucose (UA) NEG, Urine Ketones NEGATIVE, Urine Blood SMALL, UrineNitrite NEGATIVE, Urine Bilirubin NEGATIVE, Urine Urobilinogen NEG, Ur Leukocyte Ezmroxjp43, Urine RBC 8 H, Urine WBC 2, Ur Squamous Epith Cells 0, Urine Bacteria TRACE, HyalineCasts 1, Urine Mucus TRACE07/19/18 1105:Whole Bld Glucose 5962507/19/18 0855:Troponin I 0.4670507/19/18 0619:Whole Bld Glucose 76 L109/18/17 0444:[Embedded Image [...] to continue monitoring kidney function.I will consult joiner apprentice to assess worsening kidney functionContinue with Butler [...] TimeSigrid Hodge MD Verified/Reviewed by 07/19/18 1424 [facility] [place] PROG.ORTHOon 07-19-2018 Protein mass [facility] [place] Protein mass [facility] Patient Name: VALENTE QUINONES [employer] Date of : [address] [address] Unit Number: [id number] Number: [id number] Note-Ortho Patient Status: ADM INAttending Doctor: Jensen Peguero DOService Date: 07/19/18 0517Progress Note - OrthoSubjectiveS: (2 ROS minimum)Patient seen and examined. Continues to complain of urinary retention. States that hiship is doing well with only minimal pain. Has been up ambulating without difficulty.ObjectiveNursin g VitalsVital Signs (Last)ResultDate TimePulse Ao3187 0330B/P135/6711 7224Mkhi56.111 9593Vxkvk8222/23 0577Tled8666/23 0330O2 DeliveryNASAL PFIYJFV26/22 0440O2 Flow Szko799/22 0440Physical ExamGeneral: [Alert and oriented x3, no [...] 1054:Whole Bld Glucose 293 H109/17/17 0832:Troponin I 0.9538307/18/18 0832:[Embedded Image Not Available]Anion Gap 10, Est GFR ( Amer) 30, Est GFR (Non-Af Amer) 25, BUN/Creatinine Ratio 21, Glucose 259 H, Total Calcium 7.9 L, Iron 58 L, TIBC 330, Iron Saturation 18 L, Drucvifw761.7, RBC 3.64 L, MCV 92.6, MCHC 32.0, [...] Verified/Reviewed by 07/19/18 0521Chacorta Carlton DO Normal [facility] TROPONIN Ion 07-19-2018 Troponin I.cardiac mass conc 0.023 ng/mL Normal 0.000-0.045 [facility] Comment on above: Order Comment: Campu s: M Performed By: #### L 500.02883, L500.72150, L500.35196, L500.07963 ####[facility] NBMFVUZPSU7977 [place], [place] [address]Th# [phone] UA COMPLETEon 07-19-2018 Color Nom (U) Yellow Normal [facility] Comment on above: Order Comment: Campu s: M Performed By: #### L 500.26209, L500.06862, L500.98697, L500.01305 ####[facility] KYDAEJCRWC0576 [place], [place] [address]Ks# [phone] Glucose mass conc (U) Negative Normal [facility] Comment on above: Order Comment: Campu s: M Performed By: #### L 500.18909, L500.77262, L500.52542, L500.24586 ####[facility] WMNCBQGQYP8990 [place], [place] [address]My# [phone] UA APPEARANCE Hazy Normal CLEAR [facility] [place] Comment on above: Order Comment: Campu s: M Performed By: #### L 500.97132, L500.69747, L500.67840, L500.22874 ####[facility] [address]BS[address] [place] [address]Kk# [phone] UA BILIRUBIN Negative Normal [facility] Comment on above: Order Comment: Campu s: M Performed By: #### L 500.70743, L500.80357, L500.90997, L500.93473 ####[address] [address]Xd# [phone] UA BLOOD SMALL Normal NEGATIVE [facility] Comment on above: Order Comment: Campu s: M Performed By: #### L 500.74897, L500.58928, L500.99441, L500.04036 ####[facility] EZ[address]NNIJ[address] [place] [address]Ha# [phone] UA KETONE Negative Normal [facility] Comment on above: Order Comment: Campu s: M Performed By: #### L 500.87187, L500.42593, L500.19664, L500.00536 ####[facility] [address]GLE[address] [place] [address]Dn# [phone] UA LK ESTERASE 75 Normal NEGATIVE [facility] Comment on above: Order Comment: Campu s: M Performed By: #### L 500.29155, L500.71175, L500.43308, L500.17483 ####[facility] [address]QWS[address]SCB[address] [place] [address]Eq# [phone] UA NITRITE Negative Normal NEGATIVE [facility] Comment on above: Order Comment: Campu s: M Performed By: #### L 500.67053, L500.14847, L500.11861, L500.68596 ####[facility] [id number] [place], [place] [address]Oy# [phone] UA PH 5.0 Normal [facility] Comment on above: Order Comment: Campu s: M Performed By: #### L 500.76834, L500.73785, L500.19935, L500.36263 ####[facility] [id number] [place], [place] [address]Bm# [phone] UA PROTEIN 30 Normal NEGATIVE [facility] Comment on above: Order Comment: Campu s: M Performed By: #### L 500.24243, L500.96657, L500.11663, L500.36576 ####[facility] [id number] [place] [address]Aa# [phone] UA SPEC GRAV 1.009 Normal 1.005-1.030 [facility] Comment on above: Order Comment: Campu s: M Performed By: #### L 500.24956, L500.13363, L500.78656, L500.56407 ####[facility] [id number] [place] [address]Bw# [phone] UA UROBILINOGEN Negative Normal [facility] Comment on above: Order Comment: Campu s: M Performed By: #### L 500.14015, L500.74024, L500.27392, L500.23248 ####[facility] [id number] [place] [address]Iv# [phone] UA WBC 2 WBC/HPF Normal 0-5 [facility] Comment on above: Order Comment: Campu s: M Performed By: #### L 500.66863, L500.81182, L500.48660, L500.19866 ####[facility] [id number] [place] [address]Zr# [phone] HYALINE CAST 1 /LPF Normal 0-1 [facility] Comment on above: Order Comment: Campu s: M Performed By: #### L 500.95937, L500.06712, L500.64131, L500.29661 ####[facility] [id number] [place], [place] [address]Ny# [phone] MUCUS TRACE Normal [facility] Comment on above: Order Comment: Campu s: M Performed By: #### L 500.06733, L500.52705, L500.23696, L500.94392 ####[facility] [id number] [place] [address] 707[address]Yd# [phone] SQUAMOUS EPIS 0 EPI/HPF [facility] 0-5 [facility] Comment [facility]: Order Comment: Campu s: M Performed By: #### L 500.41475, L500.10883, L500.32417, L500.44079 ####[address] [address]Oo# [phone] UA BACTERIA TRACE Normal NONE [facility] Comment on above: Order Comment: Campu s: M Performed By: #### L 500.23162, L500.78176, L500.87801, L500.89374 ####[facility] [id number] [place] [address] 87[address]Iq# [phone] UA RBC 8 RBC/HPF High 0-3 [facility] Comment on above: Order Comment: Campu s: M Performed By: #### L 500.87316, L500.56735, L500.75237, L500.28075 ####[facility] [id number] [place] [address] 74[address]Te# [phone] UR LYTESon 07-19-2018 UR CL RANDOM LESS THAN 15 Normal [facility] Comment on above: Order Comment: Campu s: M Performed By: #### L 500.01447, L500.70256, L500.39351, L500.73510 ####[facility] Z[address] [place] [address] 03180Eb# [phone] UR K RANDOM 32.8 MMOL/L Normal [facility] Comment on above: Order Comment: Campu s: M Performed By: #### L 500.94175, L500.63038, L500.64065, L500.28670 ####[facility] FUFNIGJFMD[address] [place], [place] [address]Ur# [phone] UR NA RANDOM 22 MMOL/L Normal [facility] Comment on above: Order Comment: Campu s: M Performed By: #### L 500.60243, L500.56206, L500.61010, L500.11112 ####[facility] [id number] [place] [address]Bn# [phone] BMPon 07-18-2018 Anion gap 3 molar conc 10 mmol/L Normal 5-16 [facility] Comment on above: Order Comment: Campu s: M Performed By: #### L 500.80368, L500.06094, L500.06963, L500.41028 ####[address] [address]Jk# [phone] Calcium mass conc 7.9 mg/dL Low 8.5-10.1 [facility] Comment on above: Order Comment: Campu s: M Performed By: #### L 500.89063, L500.99117, L500.77422, L500.50104 ####[facility] [id number] [place], [place] [address]Ft# [phone] Chloride molar conc 93 mmol/L Low 98-107 [facility] Comment on above: Order Comment: Campu s: M Performed By: #### L 500.24591, L500.64684, L500.70004, L500.99463 ####[facility] FLDXMPEPOR2591 [place], [place] [address]Av# [phone] CO2 molar conc 28 mmol/L Normal 21-32 [facility] Comment on above: Order Comment: Campu s: M Performed By: #### L 500.88802, L500.47025, L500.68046, L500.60453 ####[facility] [address] [place] [address]Fb# [phone] Creatinine mass conc 2.650 mg/dL High 0.670-1.170 [facility] [place] Comment on above: Order Comment: Jorgeu s: M Result Comment: Macrina ents receiving either N-Acetylcysteine (NAC) orMetamizole prior to venipuncture, may have falsely depressedresults. Performed By: #### L 500.54092, L500.08773, L500.63561, L500.79264 ####[facility] KLKXUBJMZH3292 [place], [place] [address]Sq# [phone] Glucose mass conc 259 mg/dL High 70-100 [facility] Comment on above: Order Comment: Jorgeu s: M Result Comment: 70-1 00- Normal Fasting; 100-125 Impaired Fasting; greaterthan 126 on more than one result- Diabetes. ADA guidelines.Results may be falsely elevated after the administration ofSulfapyridine.Results may be falsely depressed after the administration ofSulfasalazine. Performed By: #### L 500.19803, L500.44416, L500.90141, L500.60413 ####[facility] SVXHSSOXAK0287 [place], [place] [address]Yb# [phone] Potassium molar conc 5.1 mmol/L Normal 3.5-5.1 [facility] Comment on above: Order Comment: Campu s: M Performed By: #### L 500.54731, L500.72722, L500.35503, L500.00330 ####[facility] WNRDFRCTKA9598 [place], [place] [address]Vz# [phone] Sodium molar conc 131 mmol/L Low 136-145 [facility] Comment on above: Order Comment: Jorgeu s: M Performed By: #### L 500.76377, L500.56903, L500.87435, L500.54376 ####[facility] [id number] [place], [place] [address]Bl# [phone] Urea nitrogen mass conc 56 mg/dL High 7-26 [facility] Comment on above: Order Comment: Campu s: M Performed By: #### L 500.03253, L500.03080, L500.36260, L500.07892 ####[facility] UUDDTHUHGW1245 [place], [place] [address]Uw# [phone] Urea nitrogen/Creatinine mass ratio 21 mg/mg Normal 15-24 [facility] Comment on above: Order Comment: Campu s: M Performed By: #### L 500.20168, L500.26308, L500.41674, L500.94465 ####[facility] PJKDGFFHOQ6434 [place], [place] [address]Vr# [phone] CBCon 07-18-2018 Erythrocyte distribution width Auto Ratio (RBC) 18.1 % High 11-14.5 [facility] Comment on above: Order Comment: Campu s: M Performed By: #### L 500.78557, L500.06541, L500.10655, L500.66009 ####[facility] [id number] [place] [address]Ef# [phone] Hematocrit Auto Volume Fraction (Bld) 33.7 % Low 41.0-53.0 [facility] Comment on above: Order Comment: Campu s: M Performed By: #### L 500.57239, L500.10192, L500.13417, L500.06451 ####[facility] BCFIXAZZVU2769 [place], [place] [address]Pn# [phone] Hemoglobin mass conc (Bld) 10.8 g/dL Low 13.5-17.5 [facility] Comment on above: Order Comment: Campu s: M Performed By: #### L 500.57721, L500.39119, L500.61627, L500.80105 ####[facility] PXJAILHTEH1553 [place], [place] [address]Hk# [phone] MCHC Auto mass conc (RBC) 32.0 g/dL Normal 32.0-36.0 [facility] Comment on above: Order Comment: Campu s: M Performed By: #### L 500.12503, L500.12247, L500.50746, L500.66602 ####[facility] [id number] [place] [address]Po# [phone] MCV Auto Entitic volume (RBC) 92.6 fL Normal 80.0-99.0 [facility] Comment on above: Order Comment: Campu s: M Performed By: #### L 500.17747, L500.56163, L500.21255, L500.22663 ####[place] [address]Ph# [phone] Nucleated RBC/100 WBC Ratio (Bld) 0.1 % Normal Less than 1 [facility] Comment on above: Order Comment: Campu s: M Performed By: #### L 500.57349, L500.19017, L500.71729, L500.00609 ####[address] [address]Mh# [phone] Platelet mean volume Auto Entitic volume (Bld) 9.5 fL Normal 9.4-12.4 [facility] Comment on above: Order Comment: Campu s: M Performed By: #### L 500.53199, L500.96861, L500.53311, L500.32404 ####[address] [address]Tq# [phone] Platelets Auto #/vol (Bld) 210 K/CU MM Normal 150-450 [facility] Comment on above: Order Comment: Campu s: M Performed By: #### L 500.83394, L500.00134, L500.83598, L500.97712 ####[facility] [id number] [place] [address]Wc# [phone] RBC Auto #/vol (Bld) 3.64 M/CU MM Low 4.50-6.00 [facility] Comment on above: Order Comment: Campu s: M Performed By: #### L 500.42093, L500.91247, L500.86760, L500.83878 ####[facility] MQPVYGWBAS6256 [place], [place] [address]Gs# [phone] WBC Auto #/vol (Bld) 13.5 K/CU MM High 4.5-11.0 [facility] [place] Comment on above: Order Comment: Campu s: M Performed By: #### L 500.18542, L500.62135, L500.95486, L500.40890 ####[facility] IKLZBTYOKW2712 [place], [place] [address]Cv# [phone] Tom 07-18-2018 FERR 344.7 NG/ML Normal 24.0-388.0 [facility] Comment on above: Order Comment: Campu s: M Performed By: #### L 500.56470, L500.66642, L500.61097, L500.27503 ####[facility] [address]FE[address]YDBLCQ[address] [place] [address]Wq# [phone] GFR ESTon 07-18-2018 IF AMER 30 ML/MIN [facility] Comment on above: Order Comment: Campu s: M Performed By: #### L 500.35085, L500.58476, L500.90886, L500.70361 ####[facility] PIWXCOVJVC9912 [place], [place] [address]Fy# [phone] IF non-AFR AMER 25 ML/MIN [facility] Comment on above: Order Comment: Campu s: M Performed By: #### L 500.09257, L500.01943, L500.11028, L500.01528 ####[facility] ROBQBHFRMG3280 [place], [place] [address]Au# [phone] GLUCOSE METERon 07-18-2018 Glucose mass conc 305 mg/dL High 85-125 [facility] [place] Glucose mass conc 296 mg/dL High 85-125 [facility] Glucose mass conc 293 mg/dL High 85-125 [facility] Glucose mass conc 212 mg/dL High 85-125 [facility] Glucose mass conc 245 mg/dL High 85-125 [facility] IRON PANELon 07-18-2018 Iron mass conc 58 ug/dL Low 65-175 [facility] Comment on above: Order Comment: Kahlil Burgess Result Comment: Macrina ents treated with metal-binding drugs (e.g.deferoxamine)may have depressed iron values, as chelated iron may notproperly react in the Siemens iron assay. Performed By: #### L 500.08852, L500.30659, L500.03754, L500.63741 ####[facility] KTLOOEBKAI1503 [place], [place] [address]Ff# [phone] IRON SAT 18 % Low 30-44 [facility] Comment on above: Order Comment: Kahlil Burgess Performed By: #### L 500.23887, L500.12073, L500.05215, L500.64402 ####[facility] UJPUWRQIKE1892 [place], [place] [address]Wy# [phone] TIBC 330 UG/DL Normal 221-481 [facility] Comment on above: Order Comment: Kahlil Burgess Performed By: #### L 500.41129, L500.23091, L500.35484, L500.31899 ####[facility] JXCQTSADIY7592 [place], [place] [address]Ph# [phone] OTARon 07-18-2018 OT Assessment Report Normal [facility] OTAR Occupational TherapyInpatient EvaluationMedical Diagnosis: Removal of [...] an EF of 45%who presents to [facility] July 17 for a removal of hardware and right total hiparthroplasty by Dr. Peguero. Patient states he has been having trouble with hishead for a year tried physical therapy, injections, and ihcp-dvp-cwfnwst painmedication with no relief. He has been [...] Lateral hip precautionsImaging/Testing Results from Chart: N/A [facility] PATIENT NAME: VALENTE QUINONES [facility] Dr. Bartlett MEDICAL REC #: [id number], [place] [address] DATE: 07/17/18ERVICE DATE: 07/18/18Occupational Therapy Assessment ATTENDING [...] does not plan to use at home [facility] PATIENT NAME: MAURI QUINONES[address] [facility] REC #: [id number], [place] [address] DATE: 07/17/18ERVICE DATE: 07/18/18Occupational Therapy Assessment ATTENDING [...] limits.Psychosocial: Within normal limitsInterventions: Evaluation LOW Complexity [facility] PATIENT NAME: COREY [facility]ONES0 [facility] REC #: [id number], [place] [address] DATE: 07/17/18ERVICE DATE: 07/18/18Occupational Therapy Assessment ATTENDING [...] Patient participated in plan of care developmenttoday. [facility] PATIENT NAME: VALENTE QUINONES [facility] Dr. Bartlett [facility] REC #: [id number], [place] [address] DATE: 07/17/18ERVICE DATE: 07/18/18Occupational Therapy Assessment ATTENDING PHY: Jensen Peguero DOIf there are any questions regarding this service, please contact the AcuteTherapy Department at extension [phone] WILL BE TRANSFERRED TO THE (CHOICE OF ACUTE OR REHAB) OCCUPATIONALTHERAPISTComm unication to Nursing: No updates at this time.Location of Patient at End of Therapy Session: In chair, call light within reachServices:Total Billed: 15 minutes (Timed: 15, Untimed: 0)15.00 Timed: [79559] ADL-HOME MANAGEMENT EA 15 MIN0.00 Untimed: [59420] OT-EVALUATION LOW COMPLEXITY0.00 Untimed: [] OT Evaluation ORDERSigned by: Nimco Unger, 07/18/2018 13:36:05 [facility] PATIENT NAME: VALENTE QUINONES [facility] Dr. Bartlett MEDICAL REC #: [id number], [place] [address] DATE: 07/17/18ERVICE DATE: 07/18/18Occupational Therapy Assessment ATTENDING MARIE: Jensen Peguero DO [facility] PROG [facility] 07-18-2018 Protein mass [facility] Protein mass [facility] Patient Name: [facility]INONES [facility] Date of : [address] [address] Unit Number: [id number] Number: [id number] Note-Hospitalist Patient Status: ADM INAttending Doctor: Jensen [...] urinary retention.Objective (ROS)Nursing VitalsVital Signs (Last)ResultDate TimePulse Vn7423 1140B/P134/6107/18 6852Iknl12.8109/17 6545Iuudj1533/22 7579Cryy3483/22 1140O2 DeliveryNASAL UJYAFQZ30/22 0440O2 Flow Vrcc967/22 0440General AppearanceComfortablePhysi sabrina ExamNeurological / Psychiatric Alert, Orientation H1BTNBN EOMI, PERRLNeck No JVD, No Enlarged ThyroidRespiratory Normal Breathing Effort, Clear LungsCardiovascular Heart RRR, No M / R / GGastrointestinal Normal Bowel Sounds, Non TenderMusculoskeletal No EdemaSkin No Rash, Warm / DryDiagnostic Data:Medications CurrentSig/SchStart timeLastMedicationDoseRout eStop TimeStatusAdminAl Hydrox/Mg Hydrox/30 FOG1YCXX PRN109/16 1100ACSimethiconePO(MAALOX (ALAMAG)PLUSORAL LIQ)Cfwfier921 ZTYDQTFD31/22 4985VC72/22(ECOTRIN TAB.EC)TO6347Scjhyrhbcyziq ne HCl25 ELQ8GNDP PRN109/16 1100AC(BENADRYL CAP)PODocusate Ihaclbt450 MGQ12H@2099AC109/17(SURFAK CAP)UA1733Ipiyeejcb Mesylate2 MGBID109/16 2099AC109/17(CARDURA TAB)JO2352Fsdketrixl Asymci49 AHD30K09/22 2610EV27/22(LOVENOX D.SYR)AM2258Sfxqrlfmkz807 MGQHS07/17 2200AC(NEURONTIN CAP)POHydromorphone HCl2 LZR0WOKJ PRN109/16 1100AC(DILAUDID D.SYR)IMInsulin Euriyckj36 NOTNTUQG66/22 2200AC(LANTUS SOLOSTAR PEN)SCInsulin Human LisproSee GigyWYUH57/21 9013CF65/22(humaLOG/novoLO G PEN)Insts (1)HB7732Awgwuquh Ringer's1,000 JXWIUV67/21 5003ZB21/21(Lactated Ringers)IV07/19 18663618Ovuscfckhkv0 HUCOJE43/21 2200AC(XALATAN 0.005% OPTHOUDROP)Oxycodone/1 JXNCTG3HQRO PRN109/16 1100ACAcetaminophenPO(perc oCET-5/325 TAB)Oxycodone/2 OZQPUQ5TNXS PRN109/16 6248AB30/22AcetaminophenPO 0850(percoCET-5/325 TAB)Pantoprazole Avbxsq74 WPFVDFPG46/22 4164KD37/22(PROTONIX TAB)WW8639Qsxclauzivp Zfssua63 MGQHS07/17 2200AC(PRAVACHOL TAB)POSodium Chloride1,000 MLONCE ONE07/18 2284WR82/22(Sodium SxweyvqnXR40/23 697423318.9%)Sodium Chloride3 JZX8B48/21 1400AC(Sodium ChlorideIV0.9% FLUSH D.SYR)Sodium Chloride3 MLPRN PRN109/16 1100AC(Sodium ChlorideIV0.9% FLUSH D.SYR)Trimethobenzamide HTa362 TNY9EZDM PRN109/16 1100AC(TIGAN VIAL)IMZolpidem Tartrate5 MGQHSPRN PRN109/16 1100AC(AMBIEN TAB)PODose Instructions:(1)Insulin Human Lispro (humaLOG/novoLOG PEN):2-10 UnitsLab 24hr (CBC/BMP Fishbone)07/18/18 1054:Whole Bld Glucose 293 H109/17/17 0832:Troponin I 0.7463207/18/18 0832:[Embedded Image Not Available]Anion Gap 10, Est GFR ( Amer) 30, Est GFR (Non-Af Amer) 25, BUN/Creatinine Ratio 21, Glucose 259 H, Total Calcium 7.9 L, Iron 58 L, TIBC 330, Iron Saturation 18 L, Veaufnqe459.7, RBC 3.64 L, MCV 92.6, MCHC 32.0, [...] TimeSigrid Hodge MD Verified/Reviewed by 07/18/18 1427 [facility] [place] PROG.ORTHOon 07-18-2018 Protein mass [facility] [place] Protein mass [facility] Patient Name: VALENTE QUINONES [employer] [place] Date of : [address] [address] Unit Number: [id number] Number: [id number] Note-Ortho Patient Status: ADM INAttending Doctor: Jensen [...] Tolerating diet wellObjectiveNursing VitalsVital Signs (Last)ResultDate TimePulse Nb5342/22 0015O2 DeliveryNASAL UGPUKKX33/22 0015O2 Flow Yttn183/22 0015B/P135/7011 8610Dsko03.611 8564Qxrvf4799/22 1885Sjms1781/22 0010Physical ExamGeneral: Alert and oriented x3, no acute distressLE: SILT L2-S15/5 strength with DF/PF/EHL2+ distal pulses- calf tendernessDressing clean, dry, intactDiagnostic DataLab 24hr (CBC/BMP Fishbone)07/17/18 2158:Whole Bld Glucose 245 H109/16/17 1323:Whole Bld Glucose 134 H109/16/17 0800:Whole Bld Glucose 08492/ 0721:[Embedded Image Not Available]Assessment/PlanC onclusion1. ArthritisChronicPostop day [...] DO Verified/Reviewed by 07/18/18 0616Mac Shipman DO [facility] Shea 07-18-2018 PT Assessment Report [facility] PTAR Physical TherapyInpa tient EvaluationMedical Diagnosis: R [...] an EF of 45%who presents to [facility] July 17 for a removal of hardware and right total hiparthroplasty by Dr. Peguero. Patient states he has been having trouble with hishead for a year tried physical therapy, injections, and ozma-tje-gysblvv painmedication with no relief. He has been [...] completed the activities by him/herself, with or [facility] PATIENT NAME: VALENTE QUINONES [facility] Dr. Bartlett MEDICAL REC #: [id number], [place] [address] DATE: 07/17/18ERVICE DATE: 07/18/18Physical Therapy Assessment Report ATTENDING PHY: Jensen Pegueroout an assistive device, with no assistance from a helper.Stairs: Patient completed the activities by him/herself, with or without anassistive device, with no assistance from a helper.Independent with mobility and ADLsPrior Device Use:MekzjkjuiheJC091. Prior DeviceWalker YesPatient/Caregiver Goals: Patient's functional goals: [...] abduction not assessed, knee 4/5, ankle 5/5 [facility] PATIENT NAME: VALENTE QUINONES [facility] Dr. Bart[facility] REC #: [id number], [place] [address] DATE: 07/17/18ERVICE DATE: 07/18/18Physical Therapy Assessment Report [...] issues and interventions. Fall protocol. Functional transfers. [facility] PATIENT NAME: VALENTE QUINONES [facility] Dr. Bartlett MEDICAL REC #: [id number], [place] [address] DATE: 07/17/18ERVICE DATE: 07/18/18Physical Therapy Assessment Report [...] Goals:Functional Impairment: Changing and Maintaining Body PositionModifier: J9083-BU (at least 20%, but less than 40% impaired, limited, orrestricted)Goal: cGoal Modifier: M8544-ZV (at least 20%, but less than 40% impaired, limited, orrestricted)Discharge Status for Changing and Maintaining Body Position: ResolvedFunctional Impairment Discharge Modifier: U9507-CT (at least 20%, but less than40% impaired, [...] please contact the AcuteTherapy Department at extension [phone] to Nursing:Walking: +1 and WW [facility] PATIENT NAME: TED QUINONESREY[address] [facility] REC #: [id number], [place] [address] DATE: 07/17/18ERVICE DATE: 07/18/18Physical Therapy Assessment Report ATTENDING PHY: Jensen Peguero DOLocation of Patient at End of Therapy Session: In chair, call light within reachServices:Total Billed: 0 minutes (Timed: 0, Untimed: 0)0.00 Untimed: [72690] PT-EVALUATION LOW COMPLEXITY0.00 Untimed: [] PT Evaluation ORDER0.00 Untimed: [G8981] PT-Changing and Maintaining Body Position-CJ0.00 Untimed: [G8982] ZI-Cwzq-Dvyygeko and Maintaining Body Position-CJ0.00 Untimed: [G8983] ZI-HK-Unwqfjna and Maintaining Body Position-CJSigned by: Scott Israel, 07/18/2018 09:29:20 [facility] PATIENT NAME: TED QUINONESREY13[address] MEDICAL REC #: [id number], [place] [address] DATE: 07/17/18ERVICE DATE: 07/18/18Physical Therapy Assessment Report ATTENDING PHY: Jensen Peguero DO Normal [facility] [place] TROPONIN Ion 07-18-2018 Troponin I.cardiac mass conc 0.023 ng/mL Normal 0.000-0.045 [facility] Comment on above: Order Comment: Kahlil s: M Performed By: #### L 500.63600, L500.02334, L500.83124, L500.17758 ####[facility] HOEJKJZIYV3045 [place], [place] [address]Hg# [phone] CRon 07-17-2018 CR DATE OF CONSULTATION : [...] Coreg.3. Celecoxib.4. Cardura.5. Lasix.6. Neurontin.7. Insulin.8. Lisinopril. [facility] PATIENT NAME: VALENTE QUINONES [facility] Dr. Bartlett MEDICAL REC #: [id number], [place] [address] DATE: 07/17/18DISCHARGE DATE:CONSULTATION REPORT ATTENDING PHY: Jensen Peguero DO9. Metolazone.10. Pravastatin.11. Tramadol.CURRENT MEDICATIONS: Include:1. Hydrocodone.2. Insulin.3. Lovenox.4. Aspirin.5. Protonix.6. Neurontin.7. Pravastatin.8. Cardura.LABORATORY DATA PERTINENT FROM THIS MORNING: Sodium 128, potassium 5.4, chloride 92,CO2 28, BUN 64, creatinine 3.3. total white count 7000, hemoglobin 9.4, jfipdsjztf82. Urinalysis notes trace protein, small blood, negative nitrites, sodium 22, urinechloride less than 15. Renal ultrasound unremarkable.PHYSICAL EXAMINATION:Vital signs: Temperature 99.9, heart rate 67, blood pressure 125/70. Urine arjapo761 mL overnight.HEENT: Unremarkable.Lungs: Slightly decreased at bases.Cardiovascular: [...] hypotension. Dose all medications appropriately fordecreased GFR. [facility] PATIENT NAME: VALENTE QUINONES Jason [facility]lett MEDICAL REC #: [id number], [place] [address] DATE: 07/17/18DISCHAR DATE:CONSULTATION REPORT ATTENDING PHY: Jensen Peguero. Intakes and outputs and daily lab.I thank you for giving me the opportunity to participate in the care of the patient. Pramod DYLAN Sullivan/[id number]: 07/20/2018 10:35DT: 07/20/2018 11:07SSI File#: [id number] #: [id number]/Reviewed by07/22/18 1539 MARIA EUGENIA [facility] PATIENT NAME: VALENTE QUINONES [facility] MEDICAL REC #: [id number], [place] [address] DATE: 07/17/18DISCHAR DATE:CONSULTATION REPORT ATTENDING PHY: [facility] DATE OF [facility]SULTATION : 07/21/2018REASON FOR [...] with atelectasis; small bilateral pleural effusions.PHYSICAL EXAMINATION: [facility] PATIENT NAME: VALENTE QUINONES [facility] Dr. Bartlett MEDICAL REC #: [id number], [place] [address] DATE: 07/17/18DISCHARGE DATE:CONSULTATION REPORT ATTENDING MARIE: Jensen [...] in the care of the patient. DYLAN Carbone/[id number]: 07/21/2018 09:43DT: 07/21/2018 11:19SSI File#: [id number] #: [id number] - This document may contain phonetic, minor grammatical errors, or errorsdue to voice quality.Verified/Reviewed by [facility] PATIENT NAME: VALENTE QUINONES Jason [facility] MEDICAL REC #: [id number], [place] [address] DATE: 07/17/18DISCHARGE DATE:CONSULTATION REPORT ATTENDING PHY: Jensen Peguero DO07/22/18 1539 BHAPR [facility] PATIENT NAME: VALENTE QUINONES [facility] Dr. [address]lett MEDICAL REC #: [id number], [place] [address] DATE: 07/17/18DISCHAR DATE:CONSULTATION REPORT ATTENDING PHY: Jensen Peguero DO Normal [facility] [place] GLUCOSE METERon 07-17-2018 Glucose mass conc 134 mg/dL High 85-125 [facility] Glucose mass conc 110 mg/dL Normal 85-125 [facility] [place] HHon 07-17-2018 Hematocrit Auto Volume Fraction (Bld) 36.9 % Low 41.0-53.0 [facility] Comment on above: Order Comment: Kahlil s: M Performed By: #### L 300.08107, L300.36759 ####[facility] [id number] [place], [place] [address]Kj# [phone] Hemoglobin mass conc (Bld) 11.7 g/dL Low 13.5-17.5 [facility] Comment on above: Order Comment: Kahlil s: M Performed By: #### L 300.15508, L300.03552 ####[facility] [id number] [place], [place] [address]Mp# [phone] HP.[place] 07-17-2018 CONSULTATION-H&P Normal [facility] [place] HP.[facility].ELADIO [facility] Patient Name: VALENTE QUINONES [facility] Date of : [address] [address] Unit Number: [id number] Number: [id number] Patient Status: REG SDCAttending Doctor: Jensen [...] EF of 45% who presents to [facility] July 17 for a removal ofhardware and right total hip arthroplasty by Dr. Peguero. Patient states he has beenhaving trouble with his head for a year tried physical therapy, injections, and eiqh-oiy-unqwfyl pain medication with no relief. He has [...] MedicationsMedications CurrentSig/SchStart timeLastMedicationDoseRout eStop TimeStatusAdminAl Hydrox/Mg Hydrox/30 [id number] PRN109/16 1100ACSimethiconePO(MAALOX (ALAMAG)PLUSORAL LIQ)Bisacodyl5 MGONCE ONE07/18 1100AC(DULCOLAX TAB.EC)PO07/18 1101Cefazolin Sodium2 GMQ8H@ 1700AC(ANCEF VIAL)IV07/18 0129Sodium Oesiogzd52 ML(Sodium Chloride0.9%)Diphenhydrami ne HCl25 WWX6KEDU PRN109/16 1100AC(BENADRYL CAP)PODocusate Nymlqds913 MGQ12H@ 2100AC(SURFAK CAP)POEnoxaparin Nixksp25 NHZ73C79/22 0900AC(LOVENOX D.SYR)SCHydromorphone HCl2 RHT2UMDT PRN109/16 1100AC(DILAUDID D.SYR)IMLactated Ringer's1,000 XYNWJW56/21 1100AC(Lactated Ringers)IV07/19 1059Oxycodone/1 WIDAYT2STHU PRN109/16 1100ACAcetaminophenPO(perc oCET-5/325 TAB)Oxycodone/2 RESKRH7MACX PRN109/16 1100ACAcetaminophenPO(perc oCET-5/325 TAB)Pantoprazole Hqxpbm88 IANHQNRS80/22 0700AC(PROTONIX TAB)POSodium Chloride3 KFX2W60/21 1400AC(Sodium ChlorideIV0.9% FLUSH D.SYR)Sodium Chloride3 MLPRN PRN109/16 1100AC(Sodium ChlorideIV0.9% FLUSH D.SYR)Trimethobenzamide LFs571 PXJ5GQWA PRN109/16 1100AC(TIGAN VIAL)IMZolpidem Tartrate5 MGQHSPRN PRN109/16 1100AC(AMBIEN [...] 134.Medications CurrentSig/SchStart timeLastMedicationDoseRout eStop TimeStatusAdminAl Hydrox/Mg Hydrox/30 YAU4SNHL PR 1100ACSimethiconePO(MAALOX (ALAMAG)PLUSORAL LIQ)Bisacodyl5 MGONCE ONE07/18 1100AC(DULCOLAX TAB.EC)PO07/18 1101Cefazolin Sodium2 GMQ8H@ 1700AC(ANCEF VIAL)IV07/18 0129Sodium Loyarzno97 ML(Sodium Chloride0.9%)Diphenhydrami ne HCl25 IDK6YDMG PR 1100AC(BENADRYL CAP)PODocusate Qefqvym833 MGQ12H@ 2100AC(SURFAK CAP)POEnoxaparin Rnkzia39 UHR73L70/22 0900AC(LOVENOX D.SYR)SCHydromorphone HCl2 CWE2LVAK PRN109/16 1100AC(DILAUDID D.SYR)IMLactated Ringer's1,000 LKGBZG79/21 1100AC(Lactated Ringers)IV07/19 1059Oxycodone/1 WGMQST2VJTV PRN109/16 1100ACAcetaminophenPO(perc oCET-5/325 TAB)Oxycodone/2 KZDQQD0RJVX PRN109/16 1100ACAcetaminophenPO(perc oCET-5/325 TAB)Pantoprazole Cwplqr09 NBRBMJCF43/22 0700AC(PROTONIX TAB)POSodium Chloride3 JYX7Z53/21 1400AC(Sodium ChlorideIV0.9% FLUSH D.SYR)Sodium Chloride3 MLPRN PRN109/16 1100AC(Sodium ChlorideIV0.9% FLUSH D.SYR)Trimethobenzamide CLf198 BZW4ARLQ PRN109/16 1100AC(TIGAN VIAL)IMZolpidem Tartrate5 MGQHSPRN PRN109/16 1100AC(AMBIEN [...] CNP Verified/Reviewed by 07/17/18 [facility] OPERATIVE REPORT [facility] OR DATE OF SERVICE: 07/17/2018PREOPERATIVE DIAGNOSIS: Traumatic [...] mm 0 degreepolyethylene liner, a size 16 Ulysses porous straight femoral component, 190 mm inlength with a +4 40 mm Oxinium femoral head.SURGEON: Jensen Peguero M.D.SUTURE WINDER HAND: Radha Fitch PA-C; Fernandez Rosario DO, orthopedic [...] deformed and oval-shaped femoral head with large [facility] PATIENT NAME: MAURI QUINONES1320 Jsaon Bartlett MEDICAL REC #: [id number], [place] [address] DATE: 07/17/18DISCHARGE DATE:OPERATIVE REPORT ATTENDING PHY: Jensen Peguero DOosteophytes on the neck. We removed the proximal locking screw and then was able toremove the compression screw and then was able to remove the intramedullary nail. Dorene went ahead with the hip replacement utilizing straight stem Ulysses Ferrell,reaming, trialing, ended up going with a [...] the recovery room in stable condition. TEO Velasquez/[id number]: 07/17/2018 12:13DT: 07/17/2018 13:47SSI File#: [id number] #: [id number]/Reviewed by07/20/18 0817 LILY [facility] PATIENT NAME: COREY QUINONES0 Jason Bartlett MEDICAL REC #: [id number], [place] [address] DATE: 07/17/18DISCHARGE DATE:OPERATIVE REPORT ATTENDING PHY: Jensen Peguero DO [facility] PORTABLE CHESTon 07-17-2018 PORTABLE CHEST PORTABLE CHESTOrderi [...] GUERRERO M.D. Signed By: FLORINA GUERRERO M.D. [facility] PORTABLE CHEST PORTABLE CHESTOrderi ng Physician: Jameson [...] LANCASTER M.D. Signed By: SANDRINE LANCASTER M.D. [facility] ABO and Rh group Nom (Bld) O NEGATIVE Normal [facility] Comment on above: Order Comment: Kahlil [...] PMSigned: 07/19/2018 7:36 PM Reported By: NANDO ELIZABEHT M.D. Signed By: NANDO ELIZABETH M.D. [facility] URINE CULTUREon 07-06-2018 Bacteria identified Cx Nom (U) NO GROWTH AFTER 48 HOURS [facility] Comment on above: Order Comment: Jorgeu s: M Performed By: #### L 300.83836, L300.32454 ####[facility] UZHBWLQEZX1159 [place], [place] [address]Qp# [phone] ABO/RH NCon 07-04-2018 ABO and Rh group Nom (Bld) O NEGATIVE Normal [facility] Comment on above: Order Comment: Kahlil s: M BMPon 07-04-2018 Anion gap 3 molar conc 7 mmol/L Normal 5-16 [facility] Comment on above: Order Comment: Jorgeu s: M Performed By: #### L 300.48654, L300.17469 ####[facility] TAVSPUAMXK7493 [place], [place] [address]Ie# [phone] Calcium mass conc 8.5 mg/dL Normal 8.5-10.1 [facility] Comment on above: Order Comment: Campu s: M Performed By: #### L 300.95594, L300.26061 ####[facility] HWBQAAYTDP8104 [place], [place] [address]Jr# [phone] Chloride molar conc 100 mmol/L Normal 98-107 [facility] Comment on above: Order Comment: Campu s: M Performed By: #### L 300.15940, L300.26730 ####[facility] BHREIOKTBT1586 [place], [place] [address]Pg# [phone] CO2 molar conc 32 mmol/L Normal 21-32 [facility] Comment on above: Order Comment: Campu s: M Performed By: #### L 300.34380, L300.15800 ####[facility] AALZKERUAQ3242 [place], [place] [address]Ax# [phone] Creatinine mass conc 1.490 mg/dL High 0.670-1.170 [facility] Comment on above: Order Comment: Campu s: M Result Comment: Macrina ents receiving either N-Acetylcysteine (NAC) orMetamizole prior to venipuncture, may have falsely depressedresults. Performed By: #### L 300.09043, L300.87606 ####[facility] WKKZUGFVYS4829 [place], [place] [address]Jn# [phone] Glucose mass conc 90 mg/dL Normal 70-100 [facility] Comment on above: Order Comment: Campu s: M Result Comment: 70-1 00- Normal Fasting; 100-125 Impaired Fasting; greaterthan 126 on more than one result- Diabetes. ADA guidelines.Results may be falsely elevated after the administration ofSulfapyridine.Results may be falsely depressed after the administration ofSulfasalazine. Performed By: #### L 300.60227, L300.32112 ####[facility] MPBBHHWXCH7079 [place], [place] [address]Pb# [phone] Potassium molar conc 4.7 mmol/L Normal 3.5-5.1 [facility] Comment on above: Order Comment: Campu s: M Performed By: #### L 300.92807, L300.21755 ####[facility] GFJSLMDYFI2125 [place], [place] [address]Qf# [phone] Sodium molar conc 139 mmol/L Normal 136-145 [facility] [place] Comment on above: Order Comment: Campu s: M Performed By: #### L 300.64420, L300.97460 ####[facility] A[address]JKNST[address] [place], [place] [address]Ph# [phone] Urea nitrogen mass conc 73 mg/dL High 7-26 [facility] Comment on above: Order Comment: Campu s: M Performed By: #### L 300.39071, L300.05054 ####[address] [address]Hh# [phone] Urea nitrogen/Creatinine mass ratio 49 mg/mg High 15-24 [facility] Comment [facility] above: Order Comment: Campu s: M Performed By: #### L 300.30637, L300.36476 ####[facility] [address]HLL[address] [place] [address]Wg# [phone] CBC W/DIFFon 07-04-2018 BASO ABS 0.00 K/CU MM Normal 0-0.2 [facility] Comment on above: Order Comment: Campu s: M Performed By: #### L 300.01488, L300.94643 ####[facility] RM[address]GY[address]ASM[address] [place] [address]Nb# [phone] Basophils/100 WBC Auto (Bld) 0.5 % Normal 0-2 [facility] Comment on above: Order Comment: Campu s: M Performed By: #### L 300.91432, L300.54902 ####[facility] C[address]OQ[address] [place] [address]Od# [phone] EOS ABS 0.20 K/CU MM Normal 0-0.5 [facility] Comment on above: Order Comment: Campu s: M Performed By: #### L 300.71112, L300.61925 ####[facility] GAWYLQOVJZ8753 [place] [address]Ph# [phone] Eosinophils/100 WBC Auto (Bld) 2.6 % Normal 0-5 [facility] Comment on above: Order Comment: Campu s: M Performed By: #### L 300.66106, L300.38100 ####[place] [address]Ph# [phone] Erythrocyte distribution width Auto Ratio (RBC) 14.1 % Normal 11-14.5 [facility] Comment on above: Order Comment: Campu s: M Performed By: #### L 300.12172, L300.00237 ####[address] [address]Wq# [phone] Hematocrit Auto Volume Fraction (Bld) 32.5 % Low 41.0-53.0 [facility] Comment on above: Order Comment: Campu s: M Performed By: #### L 300.63395, L300.39874 ####[place] [address]Ph# [phone] Hemoglobin mass conc (Bld) 10.5 g/dL Low 13.5-17.5 [facility] Comment on above: Order Comment: Campu s: M Performed By: #### L 300.81805, L300.68656 ####[facility] K[address]QO[address] [place], [place] [address]Ph# [phone] IMMATR GRAN ABS 0.00 K/CU MM Normal Less than 2 [facility] Comment on above: Order Comment: Campu s: M Performed By: #### L 300.62611, L300.60655 ####[place] [address] [place] [address]Ph# [phone] IMMATURE GRAN % 0.2 % Normal Less than 2 [facility] [place] Comment on above: Order Comment: Campu s: M Performed By: #### L 300.07380, L300.48761 ####[facility] OVCWSEQDJX1102 [place] [address]Ph# [phone] Lymphocytes Auto #/vol (Bld) 0.70 K/CU MM Low 0.9-4.4 [facility] Comment on above: Order Comment: Campu s: M Performed By: #### L 300.44871, L300.40046 ####[place] [address]Ph# [phone] Lymphocytes/100 WBC Auto (Bld) 11.4 % Low 20-40 [facility] Comment on above: Order Comment: Campu s: M Performed By: #### L 300.22734, L300.11038 ####[place] [address]Ph# [phone] MCHC Auto mass conc (RBC) 32.3 g/dL Normal 32.0-36.0 [facility] Comment on above: Order Comment: Campu s: M Performed By: #### L 300.63964, L300.09773 ####[place] [address]Ph# [phone] MCV Auto Entitic volume (RBC) 89.5 fL Normal 80.0-99.0 [facility] Comment on above: Order Comment: Campu s: M Performed By: #### L 300.14506, L300.15026 ####[facility] YEFPBELFFL[address] [place], [place] [address]Ph# [phone] MONO ABS 0.70 K/CU MM Normal 0.1-1.1 [facility] Comment on above: Order Comment: Campu s: M Performed By: #### L 300.23724, L300.03682 ####[facility] FJRRERHNPG[address] [place], [place] [address]Ph# [phone] Monocytes/100 WBC Auto (Bld) 10.9 % High 2-10 [facility] Comment on above: Order Comment: Campu s: M Performed By: #### L 300.73241, L300.99111 ####[facility] WOJJQGAHCA2411 [place], [place] [address]Gv# [phone] NEUTROPHIL ABS 4.90 K/CU MM Normal 2.0-8.3 [facility] Comment on above: Order Comment: Campu s: M Performed By: #### L 300.89058, L300.48950 ####[facility] DNYJUHILTK[address] [place], [place] [address]Ph# [phone] Neutrophils/100 WBC Auto (Bld) 74.4 % Normal 45-75 [facility] Comment on above: Order Comment: Campu s: M Performed By: #### L 300.68536, L300.49503 ####[place] [address] [place], [place] [address]Bv# [phone] Nucleated RBC/100 WBC Ratio (Bld) 0.0 % Normal Less than 1 [facility] Comment on above: Order Comment: Campu s: M Performed By: #### L 300.19324, L300.40934 ####[facility] TUXRZCMTSW6181 [place], [place] [address]Nv# [phone] Platelet mean volume Auto Entitic volume (Bld) 9.7 fL Normal 9.4-12.4 [facility] Comment on above: Order Comment: Campu s: M Performed By: #### L 300.28033, L300.45544 ####[facility] LPTGJBHUQI2654 [place], [place] [address]Gq# [phone] Platelets Auto #/vol (Bld) 226 K/CU MM Normal 150-450 [facility] Comment on above: Order Comment: Campu s: M Performed By: #### L 300.56174, L300.64066 ####[facility] [address]WTA[address] [place] [address]Yf# [phone] RBC Auto #/vol (Bld) 3.63 M/CU MM Low 4.50-6.00 [facility] [place] Comment on above: Order Comment: Campu s: M Performed By: #### L 300.49515, L300.49921 ####[facility] KBEKFWBGQD5190 [place], [place] [address]Cr# [phone] WBC Auto #/vol (Bld) 6.5 K/CU MM Normal 4.5-11.0 [facility] [place] Comment on above: Order Comment: Campu s: M Performed By: #### L 300.75514, L300.67985 ####[facility] [address]ZS[address] [place] [address]Nw# [phone] Tom 07-04-2018 FERR 183.0 NG/ML Normal 24.0-388.0 [facility] Comment on above: Order Comment: Campu s: M Performed By: #### L 300.46534, L300.88481 ####[address] [address]Go# [phone] GFR ESTon 07-04-2018 IF AMER 58 ML/MIN Normal [facility] Comment on above: Order Comment: Campu s: M Performed By: #### L 300.69052, L300.55658 ####[facility] [address]VZI[address] [place] [address]Vw# [phone] IF non-AFR AMER 48 ML/MIN Normal [facility] Comment on above: Order Comment: Campu s: M Performed By: #### L 300.12189, L300.42912 ####[facility] JKVTJVKYFR8892 [place], [place] [address]Hg# [phone] HGB A1C GLYCOHBon 07-04-2018 Hemoglobin A1c/Hemoglobin.total mass fraction (Bld) 8.4 % High 4.3-6.0 [facility] Comment on above: Order Comment: Campu s: M Performed By: #### L 300.70073, L300.07324 ####[facility] AAXYQNWXUE0050 [place], [place] [address]Mi# [phone] IRON PANELon 07-04-2018 Iron mass conc 83 ug/dL Normal 65-175 [facility] Comment on above: Order Comment: Kahlil s: M Result Comment: Macrina ents treated with metal-binding drugs (e.g.deferoxamine)may have depressed iron values, as chelated iron may notproperly react in the Siemens iron assay. Performed By: #### L 300.76483, L300.64089 ####[facility] CEJNVJXZOV2389 [place], [place] [address]Gv# [phone] IRON SAT 23 % Low 30-44 [facility] Comment on above: Order Comment: Kahlil s: M Performed By: #### L 300.73495, L300.43227 ####[facility] ACKNVTSSGS0442 [place], [place] [address]Tv# [phone] TIBC 364 UG/DL Normal 221-481 [facility] Comment on above: Order Comment: Kahlil s: M Performed By: #### L 300.85341, L300.07729 ####[facility] PGUVEILTOO1585 [place], [place] [address]Ep# [phone] MRSA PCRon 07-04-2018 MRSA PCR Negative Normal NEGATIVE [facility] Comment on above: Order Comment: Kahlil steel: M Result Comment: PLEA SE NOTE: TESTING DONE BY PCR TECHNOLOGY. Performed By: #### L 300.54657, L300.63944 ####[facility] DCEWTHTMSC2932 [place], [place] [address]Bz# [phone] SA PCR Negative Normal NEGATIVE [facility] Comment on above: Order Comment: Kahlil s: M Result Comment: PLEA SE NOTE: TESTING DONE BY PCR TECHNOLOGY. Performed By: #### L 300.75308, L300.92094 ####[facility] HGOQEPEPFE3782 [place], [place] [address]Vz# [phone] PBNP TESTon 07-04-2018 Natriuretic peptide B mass conc (Bld) 28915 pg/mL High 0-900 [facility] Comment on above: Order Comment: Kahlil steel: M Result Comment: NT-p roBNP results of less than 300 pg/ml effectively rulesout acute congestive heart failure with 99% negativepredictive value. Performed By: #### L 300.69817, L300.39512 ####[facility] YRUKJVVSTC1263 [place], [place] [address]Hx# [phone] PTon 07-04-2018 INR Coag RelTime (PPP) 1.04 {INR} Normal 0.9-1.1 [facility] Comment on above: Order Comment: Kahlil Burgess Result Comment: Rhett mmended PT INR therapeutic range for buttermaker andprophylactic therapy is 2.0 - 3.0. For heart valve andshunt patients the range is 2.5 - 3.5. Performed By: #### L 300.82893, L300.47352 ####[facility] TRCHVVDBSN7511 [place], [place] [address]Qb# [phone] PTS 11.1 SECONDS Normal 9.5-12.0 [facility] Comment on above: Order Comment: Kahlil Burgess Performed By: #### L 300.89390, L300.82071 ####[facility] EIPYJCFVAX6187 [place], [place] [address]Gj# [phone] PTTon 07-04-2018 aPTT Coag time (Bld) 25.7 s Normal 22.0-31.5 [facility] Comment on above: Order Comment: Kahlil [...] using the PTT. Performed By: #### L 300.43041, L300.32442 ####[facility] ITAPHOAKWG1087 [place], [place] [address]Re# [phone] TROPONIN Ion 07-04-2018 Troponin I.cardiac mass conc 0.030 ng/mL Normal 0.000-0.045 [facility] Comment on above: Order Comment: Kahlil s: M Performed By: #### L 300.35719, L300.06186 ####[facility] QOXGDCGEQT1172 [place], [place] [address]Dk# [phone] XR FINGER 3RD DIGIT 3 VIEWS RIGHTon [...] AM Sign Date: 05/20/2018 10:06:01 AM Normal [facility] ([place]) Tom 02-12-2018 FERR 87.5 NG/ML Normal 24.0-388.0 [facility] Comment on above: Order Comment: Kahlil s: M Performed By: #### L 300.26912, L300.49008 ####[facility] GPJKSMHARQ3461 [place], [place] [address]Gk# [phone] IRON PANELon 02-12-2018 Iron mass conc 249 ug/dL High 65-175 [facility] Comment on above: Order Comment: Kahlil s: M Result Comment: Macrina ents treated with metal-binding drugs (e.g.deferoxamine)may have depressed iron values, as chelated iron may notproperly react in the Siemens iron assay. Performed By: #### L 300.39089, L300.86022 ####[facility] MTIWUDMHDT1910 [place], [place] [address]Ya# [phone] IRON SAT 74 % High 30-44 [facility] Comment on above: Order Comment: Kahlil s: M Performed By: #### L 300.38395, L300.30902 ####[facility] MVWKFSSUOJ9488 [place], [place] [address]Ax# [phone] TIBC 336 UG/DL Normal 221-481 [facility] Comment on above: Order Comment: Campu s: M Performed By: #### L 300.17558, L300.47385 ####[facility] TNTPIXQMLH2305 [place], [place] [address]Jb# [phone] URINE CULTUREon 02-08-2018 Bacteria identified Cx Nom (U) ORGANISM 1: GAMMA HEMOLYTIC STREPTOCOCCUS COLONY COUNT >100,000 ID TO FOLLOW NOT VIABLE FOR SENSITIVITY Normal [facility] Comment on above: Order Comment: Campu s: M Performed By: #### L 300.89129, L300.54131 ####[facility] PRGRFRQWHK5725 [place], [place] [address]Cv# [phone] ABO/RH NCon 02-06-2018 ABO and Rh group Nom (Bld) O NEGATIVE Normal [facility] Comment on above: Order Comment: Campu s: MIs This Patient Going To Surgery? YSurgery Date: 02/20/18 BMPon 02-06-2018 Anion gap 3 molar conc 9 mmol/L Normal 5-16 [facility] Comment on above: Order Comment: Campu s: M Performed By: #### L 500.65165, L500.69264, L500.37807, L500.32884 ####[facility] YEPLGZDHSJ1968 [place], [place] [address]Jm# [phone] Calcium mass conc 8.3 mg/dL Low 8.5-10.1 [facility] Comment on above: Order Comment: Campu s: M Performed By: #### L 500.02266, L500.53151, L500.39040, L500.81790 ####[facility] GDOENFJEOE1240 [place], [place] [address]Af# [phone] Chloride molar conc 102 mmol/L Normal 98-107 [facility] Comment on above: Order Comment: Campu s: M Performed By: #### L 500.84781, L500.28613, L500.18809, L500.56166 ####[facility] UGRWGRHECW3772 [place], [place] [address]Gr# [phone] CO2 molar conc 29 mmol/L Normal 21-32 [facility] [place] Comment on above: Order Comment: Kahlil s: M Performed By: #### L 500.72079, L500.51530, L500.61008, L500.70865 ####[facility] NZBHQAUUZP0598 [place], [place] [address]Pr# [phone] Creatinine mass conc 1.270 mg/dL High 0.670-1.170 [facility] [place] Comment on above: Order Comment: Kahlil s: M Result Comment: Macrina ents receiving either N-Acetylcysteine (NAC) orMetamizole prior to venipuncture, may have falsely depressedresults. Performed By: #### L 500.16218, L500.62003, L500.72506, L500.06204 ####[facility] FHHUZVBDUU7333 [place], [place] [address]Oz# [phone] Glucose mass conc 131 mg/dL High 70-100 [facility] Comment on above: Order Comment: Kahlil s: M Result Comment: 70-1 00- Normal Fasting; 100-125 Impaired Fasting; greaterthan 126 on more than one result- Diabetes. ADA guidelines.Results may be falsely elevated after the administration ofSulfapyridine.Results may be falsely depressed after the administration ofSulfasalazine. Performed By: #### L 500.58601, L500.99100, L500.29319, L500.00604 ####[facility] JQYYZSBWWL0700 [place], [place] [address]Bm# [phone] Potassium molar conc 5.1 mmol/L Normal 3.5-5.1 [facility] Comment on above: Order Comment: Kahlil s: M Performed By: #### L 500.15288, L500.05134, L500.39070, L500.97765 ####[facility] ZZOYOWCTWU0982 [place], [place] [address]Ap# [phone] Sodium molar conc 140 mmol/L Normal 136-145 [facility] Comment on above: Order Comment: Campu s: M Performed By: #### L 500.97057, L500.88507, L500.16854, L500.87753 ####[facility] RZRHOEXHIU3556 [place], [place] [address]Kx# [phone] Urea nitrogen mass conc 51 mg/dL High 7- [facility] Comment on above: Order Comment: Campu s: M Performed By: #### L 500.98144, L500.48307, L500.95982, L500.82265 ####[facility] [id number] [place], [place] [address]Ao# [phone] Urea nitrogen/Creatinine mass ratio 40 mg/mg [facility] Comment [facility]: Order Comment: Campu s: M Performed By: #### L 500.71853, L500.41328, L500.91389, L500.72447 ####[facility] [id number] [place] [address]Lj# [phone] CBC W/DIFFon 02-06-2018 BASO ABS 0.00 K/CU MM Normal 0-0.2 [facility] [place] Comment on above: Order Comment: Campu s: M Performed By: #### L 200.67968 ####[facility] [id number] [place] [address]Zw# [phone] Basophils/100 WBC Auto (Bld) 0.6 % Normal 0-2 [facility] [place] Comment on above: Order Comment: Campu s: M Performed By: #### L 200.80089 ####[facility] [id number] [place] [address]Yu# [phone] EOS ABS 0.20 K/CU MM Normal 0-0.5 [facility] [place] Comment on above: Order Comment: Campu s: M Performed By: #### L 200.09449 ####[facility] [id number] [place] [address]Ou# [phone] Eosinophils/100 WBC Auto (Bld) 3.2 % Normal 0-5 [facility] [place] Comment on above: Order Comment: Campu s: M Performed By: #### L 200.53798 ####[facility] [id number] [place], [place] [address]Ch# [phone] Erythrocyte distribution width Auto Ratio (RBC) 13.5 % Normal 11-14.5 [facility] [place] Comment on above: Order Comment: Campu s: M Performed By: #### L 200.17773 ####[facility] [id number] [place], [place] [id number]# [phone] Hematocrit Auto Volume Fraction (Bld) 30.8 % Low 41.0-53.0 [facility] Comment [facility]: Order Comment: Campu s: M Performed By: #### L 200.24705 ####[address] [address]Tj# [phone] Hemoglobin mass conc (Bld) 9.8 g/dL Low 13.5-17.5 [facility] Comment on above: Order Comment: Campu s: M Performed By: #### L 200.91205 ####[facility] [facility] [id number] [place], [place] [address]Ph# [phone] IMMATR GRAN ABS 0.00 K/CU MM Normal Less than 2 [facility] [place] Comment on above: Order Comment: Campu s: M Performed By: #### L 200.56615 ####[facility] [id number] [place], [place] [address]Ph# [phone] IMMATURE GRAN % 0.4 % Normal Less than 2 [facility] [place] Comment on above: Order Comment: Campu s: M Performed By: #### L 200.17633 ####[facility] [id number] [place] [address]Ms# [phone] Lymphocytes Auto #/vol (Bld) 1.00 K/CU MM Normal 0.9-4.4 [facility] Comment on above: Order Comment: Campu s: M Performed By: #### L 200.00695 ####[facility] [id number] [place], [place] [address]Ph# [phone] Lymphocytes/100 WBC Auto (Bld) 14.0 % Low 20-40 [facility] Comment on above: Order Comment: Campu s: M Performed By: #### L 200.42448 ####[facility] [id number] [place], [place] [address]Ph# [phone] MCHC Auto mass conc (RBC) 31.8 g/dL Low 32.0-36.0 [facility] Comment on above: Order Comment: Campu s: M Performed By: #### L 200.16220 ####[facility] [id number] [place], [place] [address]Ph# [phone] MCV Auto Entitic volume (RBC) 86.8 fL Normal 80.0-99.0 [facility] Comment on above: Order Comment: Campu s: M Performed By: #### L 200.99306 ####[facility] [id number] [place], [place] [address]Ph# [phone] MONO ABS 0.70 K/CU MM Normal 0.1-1.1 [facility] Comment on above: Order Comment: Campu s: M Performed By: #### L 200.94709 ####[facility] [id number] [place], [place] [address]Ph# [phone] Monocytes/100 WBC Auto (Bld) 10.7 % High 2-10 [facility] Comment on above: Order Comment: Campu s: M Performed By: #### L 200.05561 ####[facility] [id number] [place], [place] [address]Ph# [phone] NEUTROPHIL ABS 4.90 K/CU MM Normal 2.0-8.3 [facility] Comment on above: Order Comment: Campu s: M Performed By: #### L 200.46111 ####[facility] [id number] [place], [place] [address]Ph# [phone] Neutrophils/100 WBC Auto (Bld) 71.1 % Normal 45-75 [facility] Comment on above: Order Comment: Campu s: M Performed By: #### L 200.16677 ####[facility] [id number] [place] [address]Gm# [phone] Nucleated RBC/100 WBC Ratio (Bld) 0.0 % Normal Less than 1 [facility] Comment on above: Order Comment: Campu s: M Performed By: #### L 200.22350 ####[place] [address]Ph# [phone] Platelet mean volume Auto Entitic volume (Bld) 9.7 fL Normal 9.4-12.4 [facility] Comment on above: Order Comment: Campu s: M Performed By: #### L 200.44593 ####[address] [address]Dc# [phone] Platelets Auto #/vol (Bld) 315 K/CU MM Normal 150-450 [facility] Comment on above: Order Comment: Campu s: M Performed By: #### L 200.96607 ####[address] [address]Li# [phone] RBC Auto #/vol (Bld) 3.55 M/CU MM Low 4.50-6.00 [facility] [place] Comment on above: Order Comment: Campu s: M Performed By: #### L 200.12250 ####[facility] [id number] [place] [address]Sx# [phone] WBC Auto #/vol (Bld) 6.9 K/CU MM Normal 4.5-11.0 [facility] [place] Comment on above: Order Comment: Campu s: M Performed By: #### L 200.46464 ####[facility] [id number] [place] [address]On# [phone] Tom 02-06-2018 FERR 85.6 NG/ML Normal 24.0-388.0 [facility] Comment on above: Order Comment: Campu s: M Performed By: #### L 500.97609, L500.27345, L500.07520, L500.91749 ####[facility] [id number] [place], [place] [address]Az# [phone] GFR ESTon 02-06-2018 IF AMER Greater than 60 Normal [facility] Comment on above: Order Comment: Jorgeu s: M Performed By: #### L 500.63865, L500.00153, L500.34145, L500.83416 ####[facility] [id number] [place], [place] [address]Ca# [phone] IF non-AFR AMER 58 ML/MIN Normal [facility] Comment on above: Order Comment: Jorgeu s: M Performed By: #### L 500.01465, L500.70323, L500.32012, L500.42894 ####[facility] [id number] [place], [place] [address]Or# [phone] IRON PANELon 02-06-2018 Iron mass conc 44 ug/dL Low 65-175 [facility] Comment on above: Order Comment: Kahlil s: M Result Comment: Macrina ents treated with metal-binding drugs (e.g.deferoxamine)may have depressed iron values, as chelated iron may notproperly react in the Siemens iron assay. Performed By: #### L 500.36773, L500.63807, L500.53843, L500.33797 ####[facility] [id number] [place], [place] [address]Zr# [phone] IRON SAT 13 % Low 30-44 [facility] Comment on above: Order Comment: Jorgeu s: M Performed By: #### L 500.34514, L500.60492, L500.40042, L500.25142 ####[facility] [id number] [place], [place] [address]Ts# [phone] TIBC 337 UG/DL Normal 221-481 [facility] Comment on above: Order Comment: Jorgeu s: M Performed By: #### L 500.88780, L500.97435, L500.91941, L500.26213 ####[facility] [id number] [place], [place] [address]Rq# [phone] MRSA PCRon 02-06-2018 MRSA PCR Negative Normal NEGATIVE [facility] Comment on above: Order Comment: Kahlil s: M Result Comment: PLEA SE NOTE: TESTING DONE BY PCR TECHNOLOGY. Performed By: #### L 300.71489, L300.70531 ####[facility] [id number] [place], [place] [address]Ox# [phone] SA PCR Positive High NEGATIVE [facility] Comment on above: Order Comment: Kahlil s: M Result Comment: PLEA SE NOTE: TESTING DONE BY PCR TECHNOLOGY. Performed By: #### L 300.12509, L300.40619 ####[facility] [id number] [place], [place] [address]Ts# [phone] PATIENT RETYPEon 02-06-2018 RETYPE INTERP Negative Normal [facility] Comment on above: Order Comment: Kahlil s: MIs This Patient Going To Surgery? YSurgery Date: 02/20/18 PTon 02-06-2018 INR Coag RelTime (PPP) 1.0 {INR} Normal 0.9-1.1 [facility] Comment on above: Order Comment: Kahlil s: M Result Comment: Rhett mmended PT INR therapeutic range for buttermaker andprophylactic therapy is 2.0 - 3.0. For heart valve andshunt patients the range is 2.5 - 3.5. Performed By: #### L 300.16181, L300.91895 ####[facility] [id number] [place], [place] [address]Ss# [phone] PTS 11.0 SECONDS Normal 9.4-12.0 [facility] Comment on above: Order Comment: Kahlil steel: M Performed By: #### L 300.22693, L300.33716 ####[facility] [id number] [place], [place] [address]Iy# [phone] PTTon 02-06-2018 aPTT Coag time (Bld) 26.1 s Normal 22.5-31.4 [facility] [place] Comment on above: Order Comment: Kahlil s: [...] using the PTT. Performed By: #### L 300.66294, L300.97151 ####[facility] [id number] [place], [place] [address]Oq# [phone] [facility] Note on 08-15-2017 [facility] Note Normal [facility] [place] Patient Summary Documentson 08-15-2017 Patient Summary Documents Normal [facility] [place] XR WRIST MINIMUM 3 VIEWS LEF Ton [...] AM Sign Date: 08/15/2017 7:02:58 AM Normal [facility] [place] Lab Report: Basic Metabolic Profile (BMP)on 07-04-2017 Anion gap 9 mmol/L Invalid Interpretation Code 5-15 [facility] Work Phone: BUN/Creatinine Ratio 33.3 RATIO High 06-15 [facility] Work Phone: Calcium 8.7 mg/dL Invalid Interpretation Code 8.5-10.1 [facility] Work Phone: [phone] Chloride 103 mmol/L Invalid Interpretation Code 98-107 [facility] Work Phone: [phone] CO2 26.0 mmol/L Invalid Interpretation Code 21.0-32.0 [facility] Work Phone: [phone] Creatinine 1.11 mg/dL Invalid Interpretation Code 0.70-1.30 [facility] Work Phone: [phone] eGFR (non-black) 72 mL/min/{1.73_m2} Invalid Interpretation Code >60 [facility] Work Phone: [phone] eGFR (non-black) 87 mL/min/{1.73_m2} Invalid Interpretation Code >60 [facility] Work Phone: [phone] Glucose mass conc 140 mg/dL High 70-110 [facility] Work Phone: [phone] Potassium molar conc 4.2 mmol/L Invalid Interpretation Code 3.5-5.1 [facility] Work Phone: [phone] Sodium 138 mmol/L Invalid Interpretation Code 136-145 [facility] Work Phone: [phone] Urea nitrogen 37 mg/dL High 7-18 [facility] Work Phone: [phone] Office Visiton 05-25-2017 Documentation of current medications (procedure) Done Invalid Interpretation Code [employer] Phone: [phone] Fall risk assessment No Invalid Interpretation Code [employer] Phone: [phone] Tobacco use [facility] Former smoker Invalid Interpretation Code [employer] Phone: [phone] Replaced Document: Fredmark E CG Observationson 05-25-2017 BUN (urea nitrogen) Sinus Rhythm -Incomp lete right bundle branch block. -Inferior infarct -probably not recent -Old anterior infarct. ABNORMAL Invalid Interpretation Code [employer] [facility] Phone: [phone] EKG QRS axis -22 deg Invalid Interpretation Code [employer] [facility] Phone: [phone] P Kendrick 58 deg Invalid Interpretation Code [employer] [facility] Phone: [phone] UT Interval 182 ms Invalid Interpretation Code [facility] Work Phone: [phone] Pulse (Heart Rate) 83 /min Invalid Interpretation Code [facility] Work Phone: [phone] QRS Duration 114 ms Invalid Interpretation Code [facility] Work Phone: [phone] QT Interval new path ms Invalid Interpretation Code [facility] Work Phone: [phone] QTc Hernández 414 ms Invalid Interpretation Code [facility] Work Phone: [phone] T Kendrick 1 deg Invalid Interpretation Code [facility] Work Phone: [phone] 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 Comment on above: Order Comment: Specimen Type: ARTERIAL B LOOD SPECIMENOrdering Facility: [facility] Address: [address] [place], [place] [address] Performed By: #### A LLBG ####[facility] [id number] [facility] [id number] [place], [place] [address] 01-09-2025 16:14-0400 SaO2% (BldA) [Mass fraction] 99 % [facility] Comment on above: Order Comment: Specimen Type: ARTERIAL B LOOD SPECIMENOrdering Facility: [facility] Address: [address] [place], [place] [address] Performed By: #### A LLBG ####[facility] [id number] [facility] [id number] [address] [address] 01-08-2025 15:00-0400 SaO2% (BldA) [Mass fraction] 93 % [facility] Comment on above: Order Comment: Specimen Type: ARTERIAL B LOOD SPECIMENOrdering Facility: [facility] Address: [address] [place] [id number] Performed By: #### A LLBG ####[facility] [id number] [facility] [id number] [address] [address] 01-08-2025 11:17-0400 SaO2% (BldA) [Mass fraction] 96 % RIGOBERTO GOULD [facility] Comment on above: Order Comment: Specimen Type: ARTERIAL B LOOD SPECIMENOrdering Facility: [facility] Address: [address] [place] [address] [place] [address] Performed By: #### A LLBG ####[facility] [id number] [facility] [id number] [address] [address] 01-07-2025 08:22-0400 Body temperature 97.9 [degF] Dr. Rigoberto Gould MD Work Phone: 2(159)293-020799 [place] [address] 01-07-2025 08:22-0400 Diastolic blood pressure 77 mm[Hg] Dr. Rigoberto abarca MD Work Phone: 3(745)248-595699 [place] [address] 01-07-2025 08:22-0400 Heart rate 71 /min Dr. Rigoberto Gould MD Work Phone: 7(931)789-702099 [place] [address] 01-07-2025 08:22-0400 Respiratory rate 16 /min Dr. Rigoberto Gould MD Work Phone: 2(563)379-199599 [place] [address] 01-07-2025 08:22-0400 SaO2% (BldA) [Mass fraction] 99 % Dr. Rigoberto Gould MD Work Phone: 5(178)210-616999 [place] [address] 01-07-2025 08:22-0400 Systolic blood pressure 125 mm[Hg] Dr. Rigoberto Gould MD Work Phone: 8(084)388-994299 [place] [address] 01-07-2025 06:00-0400 Inhaled oxygen flow rate 2 L/min Dr. Rigoberto abarca MD Work Phone: 9(669)466-401799 [place] [address] 01-06-2025 18:08-0400 Body mass index (BMI) [Ratio] 23.6 kg/m2 Dr. Rigoberto Gould MD Work Phone: 8(943)607-394299 [place] [address] 01-06-2025 18:08-0400 Body weight 74.[address] Rigoberto Gould MD Work Phone: 2(915)436-776107 [place] [address] 01-06-2025 18:06-0400 Body height 177.[address] Rigoberto Gould MD Work Phone: 8(542)278-043299 [place] [address] 12-30-2024 14:43-0400 Body mass index (BMI) [Ratio] 25.4 kg/m2 Jensen Puckett Jr., MD Work Phone: [facility] 12-30-2024 14:43-0400 Body weight 80.29 kg Jensen Puckett Jr., MD Work Phone: [facility] 12-29-2024 18:46-0400 Diastolic blood pressure 78 mm[Hg] Dr. Rigoberto abarca MD Work Phone: 1(928)124-749499 [place] [address] 12-29-2024 18:46-0400 Heart rate 75 /min Dr. Rigoberto Gould MD Work Phone: 1(730)552-797899 [place] [address] 12-29-2024 18:46-0400 Respiratory rate 16 /min Dr. Rigoberto Gould MD Work Phone: 9(521)097-023599 [place] [address] 12-29-2024 18:46-0400 SaO2% (BldA) [Mass fraction] 94 % Dr. Rigoberto Gould MD Work Phone: 5(440)682-369299 [place] [address] 12-29-2024 18:46-0400 Systolic blood pressure 114 mm[Hg] Dr. Rigoberto Gould MD Work Phone: 0(534)765-274699 [place] [address] 12-29-2024 17:00-0400 Body temperature 97.6 [degF] Dr. Rigoberto Gould MD Work Phone: 5(120)895-272399 [place] [address] 12-29-2024 15:16-0400 Body mass index (BMI) [Ratio] 25.4 kg/m2 Dr. Rigoberto Gould MD Work Phone: 8(754)088-145699 [place] [address] 12-29-2024 15:16-0400 Body weight 80.[address] Rigoberto Gould MD Work Phone: 3(036)367-698299 [place] [address] 12-29-2024 14:45-0400 Body mass index (BMI) [Ratio] 25.4 kg/m2 Rigoberto Gould MD Work Phone: [facility] 12-29-2024 14:45-0400 Body weight 80.29 kg Rigoberto Gould MD Work Phone: [facility] 12-29-2024 14:45-0400 Diastolic blood pressure 62 mm[Hg] Rigoberto Gould MD Work Phone: [facility] 12-29-2024 14:45-0400 Heart rate 72 /min Rigoberto Gould MD Work Phone: [facility] 12-29-2024 14:45-0400 SaO2% (BldA) [Mass fraction] 96 % Rigoberto Gould MD Work Phone: [facility] 12-29-2024 14:45-0400 Systolic blood pressure 104 mm[Hg] Rigoberto Gould MD Work Phone: [facility] 12-26-2024 08:15-0400 Body mass index (BMI) [Ratio] 24.5 kg/m2 Dr. Rigoberto Gould MD Work Phone: [facility] 12-26-2024 08:15-0400 Body weight 77.[address] Rigoberto Gould MD Work Phone: [facility] 12-26-2024 08:15-0400 Diastolic blood pressure 62 mm[Hg] Dr. Rigoberto abarca MD Work Phone: 9(569)158-096307 [place] [address] 12-26-2024 08:15-0400 Heart rate 75 /min Dr. Rigoberto Gould MD Work Phone: 1(683)861-254907 [place] [address] 12-26-2024 08:15-0400 Respiratory rate 18 /min Dr. Rigoberto Gould MD Work Phone: 5(315)384-729007 [place] [address] 12-26-2024 08:15-0400 Systolic blood pressure 102 mm[Hg] Dr. Rigoberto Gould MD Work Phone: [facility] 12-22-2024 21:22-0400 Body temperature 97.6 [degF] Dr. Rigoberto Gould MD Work Phone: 4(871)738-767107 [place] [address] 12-22-2024 21:22-0400 Diastolic blood pressure 73 mm[Hg] Dr. Rigoberto abarca MD Work Phone: 8(348)933-153999 [place] [address] 12-22-2024 21:22-0400 Heart rate 72 /min Dr. Rigoberto Gould MD Work Phone: 5(614)081-590599 [place] [address] 12-22-2024 21:22-0400 Respiratory rate 18 /min Dr. Rigoberto Gould MD Work Phone: 4(547)547-367899 [place] [address] 12-22-2024 21:22-0400 SaO2% (BldA) [Mass fraction] 96 % Dr. Rigoberto Gould MD Work Phone: 3(084)298-946999 [place] [address] 12-22-2024 21:22-0400 Systolic blood pressure 124 mm[Hg] Dr. Rigoberto Gould MD Work Phone: 7(384)050-958399 [place] [address] 12-13-2024 15:17-0400 Body mass index (BMI) [Ratio] 25.1 kg/m2 Dr. Rigoberto Gould MD Work Phone: 7(320)789-044299 [place] [address] 12-13-2024 15:17-0400 Body weight 79.[address] Rigoberto Gould MD Work Phone: 7(454)405-943999 [place] [address] 12-13-2024 14:30-0400 Body temperature 97.6 [degF] Dr. Rigoberto Gould MD Work Phone: 8(674)227-552099 [place] [address] 12-13-2024 14:30-0400 Diastolic blood pressure 75 mm[Hg] Dr. Rigoberto abarca MD Work Phone: 0(977)269-387099 [place] [address] 12-13-2024 14:30-0400 Heart rate 84 /min Dr. Rigoberto Gould MD Work Phone: 9(102)547-359999 [place] [address] 12-13-2024 14:30-0400 Respiratory rate 18 /min Dr. Rigoberto Gould MD Work Phone: 0(786)503-513999 [place] [address] 12-13-2024 14:30-0400 SaO2% (BldA) [Mass fraction] 93 % Dr. Rigoberto Gould MD Work Phone: 7(445)971-100999 [place] [address] 12-13-2024 14:30-0400 Systolic blood pressure 118 mm[Hg] Dr. Rigoberto Gould MD Work Phone: 6(133)530-077399 [place] [address] 12-12-2024 09:51-0400 Body height 177.[address] Rigoberto Gould MD Work Phone: 8(406)459-323299 [place] [address] 12-11-2024 18:00-0400 Diastolic blood pressure 78 mm[Hg] Dr. Rigoberto abarca MD Work Phone: 0(019)879-973499 [place] [address] 12-11-2024 18:00-0400 Heart rate 77 /min Dr. Rigoberto Gould MD Work Phone: 8(660)609-689399 [place] [address] 12-11-2024 18:00-0400 Respiratory rate 18 /min Dr. Rigoberto Gould MD Work Phone: 5(433)960-362899 [place] [address] 12-11-2024 18:00-0400 SaO2% (BldA) [Mass fraction] 97 % Dr. Rigoberto Gould MD Work Phone: 2(222)983-767399 [place] [address] 12-11-2024 18:00-0400 Systolic blood pressure 134 mm[Hg] Dr. Rigoberto Gould MD Work Phone: 9(513)794-892399 [place] [address] 12-11-2024 14:17-0400 Body height 177.[address] Rigoberto Gould MD Work Phone: 3(279)782-924899 [place] [address] 12-11-2024 14:17-0400 Body temperature 97.6 [degF] Dr. Rigoberto Gould MD Work Phone: 7(448)320-492499 [place] [address] 12-05-2024 13:16-0400 Body mass index (BMI) [Ratio] 25.68 kg/m2 Alexus Mendez APRN.ANGIOGRAPHER Work Phone: 3(616)554-272089 [place] [address] 12-05-2024 13:16-0400 Body temperature 97.3 [degF] Alexus Mendez LIQUIFIED NATURAL GAS SPECIALIST.ANGIOGRAPHER Work Phone: [facility] 12-05-2024 13:16-0400 Body weight 81.19 kg Alexus Mendez LIQUIFIED NATURAL GAS SPECIALIST.ANGIOGRAPHER Work Phone: 0(527)366-362789 [place] [address] 12-05-2024 13:16-0400 Diastolic blood pressure 68 mm[Hg] Alexus Supp an LIQUIFIED NATURAL GAS SPECIALIST.ANGIOGRAPHER Work Phone: [facility] 12-05-2024 13:16-0400 Heart rate 85 /min Alexus Suppan LIQUIFIED NATURAL GAS SPECIALIST.ANGIOGRAPHER Work Phone: [facility] 12-05-2024 13:16-0400 SaO2% (BldA) [Mass fraction] 97 % Alexus Suppan LIQUIFIED NATURAL GAS SPECIALIST.ANGIOGRAPHER Work Phone: [facility] 12-05-2024 13:16-0400 Systolic blood pressure 122 mm[Hg] Alexus Suppa n LIQUIFIED NATURAL GAS SPECIALIST.ANGIOGRAPHER Work Phone: [facility] 10-28-2024 12:56-0500 Body mass index (BMI) [Ratio] 26.9 kg/m2 Dr. Rigoberto Gould MD Work Phone: 6(848)044-846107 [place] [address] 10-28-2024 12:56-0500 Body weight 85.[address] Rigoberto Gould MD Work Phone: 3(119)787-579807 [place] [address] 10-28-2024 12:56-0500 Diastolic blood pressure 85 mm[Hg] Dr. Rigoberto abarca MD Work Phone: 8(752)280-332907 [place] [address] 10-28-2024 12:56-0500 Heart rate 68 /min Dr. Rigoberto Gould MD Work Phone: 8(307)914-837907 [place] [address] 10-28-2024 12:56-0500 Respiratory rate 18 /min Dr. Rigoberto Gould MD Work Phone: 8(431)883-226507 [place] [address] 10-28-2024 12:56-0500 SaO2% (BldA) [Mass fraction] 92 % Dr. Rigoberto Gould MD Work Phone: 4(226)285-167407 [place] [address] 10-28-2024 12:56-0500 Systolic blood pressure 133 mm[Hg] Dr. Rigoberto Gould MD Work Phone: [facility] 10-07-2024 14:38-0500 Body mass index (BMI) [Ratio] 24.39 kg/m2 Alexus Suppan LIQUIFIED NATURAL GAS SPECIALIST.ANGIOGRAPHER Work Phone: [facility] 10-07-2024 14:38-0500 Body weight 77.11 kg Alexus Suppan LIQUIFIED NATURAL GAS SPECIALIST.ANGIOGRAPHER Work Phone: [facility] 10-07-2024 14:38-0500 Diastolic blood pressure 64 mm[Hg] Alexus Supp an LIQUIFIED NATURAL GAS SPECIALIST.ANGIOGRAPHER Work Phone: [facility] 10-07-2024 14:38-0500 Heart rate 78 /min Alexus Suppan LIQUIFIED NATURAL GAS SPECIALIST.ANGIOGRAPHER Work Phone: [facility] 10-07-2024 14:38-0500 Respiratory rate 16 /min Alexus Suppan LIQUIFIED NATURAL GAS SPECIALIST.ANGIOGRAPHER Work Phone: [facility] 10-07-2024 14:38-0500 Systolic blood pressure 116 mm[Hg] Alexus Suppa n LIQUIFIED NATURAL GAS SPECIALIST.ANGIOGRAPHER Work Phone: [facility] 09-04-2024 08:19-0500 Diastolic blood pressure 60 mm[Hg] Alexus Supp an LIQUIFIED NATURAL GAS SPECIALIST.ANGIOGRAPHER Work Phone: [facility] 09-04-2024 08:19-0500 Systolic blood pressure 122 mm[Hg] Alexus Suppa n LIQUIFIED NATURAL GAS SPECIALIST.ANGIOGRAPHER Work Phone: [facility] 09-04-2024 08:05-0500 Body temperature 97 [degF] Alexus Suppan LIQUIFIED NATURAL GAS SPECIALIST.ANGIOGRAPHER Work Phone: [facility] 09-04-2024 08:05-0500 Heart rate 91 /min Alexus Suppan LIQUIFIED NATURAL GAS SPECIALIST.ANGIOGRAPHER Work Phone: [facility] 09-04-2024 08:05-0500 SaO2% (BldA) [Mass fraction] 93 % Alexus Suppan LIQUIFIED NATURAL GAS SPECIALIST.ANGIOGRAPHER Work Phone: [facility] 06-30-2024 13:07-0500 Diastolic blood pressure 62 mm[Hg] Alexus Supp an LIQUIFIED NATURAL GAS SPECIALIST.ANGIOGRAPHER Work Phone: [facility] 06-30-2024 13:07-0500 Systolic blood pressure 118 mm[Hg] Alexus Suppa n LIQUIFIED NATURAL GAS SPECIALIST.ANGIOGRAPHER Work Phone: [facility] 06-30-2024 12:45-0500 Body mass index (BMI) [Ratio] 24.54 kg/m2 Alexus Suppan LIQUIFIED [employer] G[employer] SPECIALIST.ANGIOGRAPHER Work Phone: [facility] 06-30-2024 12:45-0500 Body weight 77.56 kg Alexus Suppan [employer]QU[employer]IED [employer] G[employer]IST.ANGIOGRAPHER Work Phone: [facility] 06-30-2024 12:45-0500 Heart rate 60 /min Alexus Suppan [employer]QU[employer]IED [employer] G[employer]IST.ANGIOGRAPHER Work Phone: [facility] 06-30-2024 12:45-0500 Respiratory rate 16 /min Alexus Suppan [employer]QU[employer]IED [employer] G[employer]IST.ANGIOGRAPHER Work Phone: [facility] 06-30-2024 12:45-0500 SaO2% (BldA) [Mass fraction] 95 % Alexus Suppan [employer]QU[employer]IED [employer] G[employer]IST.ANGIOGRAPHER Work Phone: [facility] 03-27-2024 12:36-0400 Diastolic blood pressure 82 mm[Hg] Alexus Supp an [employer]QU[employer]IED [employer] G[employer] SPECIALIST.ANGIOGRAPHER Work Phone: [facility] 03-27-2024 12:36-0400 Heart rate 66 /min Alexus Suppan LIQUIFIED NATURAL GAS SPECIALIST.ANGIOGRAPHER Work Phone: [facility] 03-27-2024 12:36-0400 SaO2% (BldA) [Mass fraction] 95 % Alexus Suppan LIQUIFIED NATURAL GAS SPECIALIST.ANGIOGRAPHER Work Phone: [facility] 03-27-2024 12:36-0400 Systolic blood pressure 158 mm[Hg] Alexus Suppa n LIQUIFIED NATURAL GAS SPECIALIST.ANGIOGRAPHER Work Phone: [facility] 12-07-2023 14:34-0400 Body weight 77.56 kg Melanie Rushing MD Work Phone: [facility] 12-07-2023 14:34-0400 Diastolic blood pressure 62 mm[Hg] Melanie Rushing MD Work Phone: [facility] 12-07-2023 14:34-0400 Heart rate 68 /min Melanie Rushing MD Work Phone: [facility] 12-07-2023 14:34-0400 SaO2% (BldA) [Mass fraction] 96 % Melanie Rushing MD Work Phone: [facility] 12-07-2023 14:34-0400 Systolic blood pressure 110 mm[Hg] Melanie Rushing MD Work Phone: [facility] 11-08-2023 14:14-0400 Body weight 77.11 kg Alexus Suppan LIQUIFIED NATURAL GAS SPECIALIST.PHONE REPRESENTATIVE Work Phone: [facility] 11-08-2023 14:14-0400 Diastolic blood pressure 92 mm[Hg] Alexus Supp an LIQUIFIED NATURAL GAS SPECIALIST.PHONE REPRESENTATIVE Work Phone: [facility] 11-08-2023 14:14-0400 Heart rate 72 /min Alexus Suppan LIQUIFIED NATURAL GAS SPECIALIST.PHONE REPRESENTATIVE Work Phone: [facility] 11-08-2023 14:14-0400 Respiratory rate 16 /min Alexus Suppan LIQUIFIED NATURAL GAS SPECIALIST.PHONE REPRESENTATIVE Work Phone: [facility] 11-08-2023 14:14-0400 SaO2% (BldA) [Mass fraction] 97 % Alexus Suppan LIQUIFIED NATURAL GAS SPECIALIST.PHONE REPRESENTATIVE Work Phone: [facility] 11-08-2023 14:14-0400 Systolic blood pressure 164 mm[Hg] Alexus Suppa n LIQUIFIED NATURAL GAS SPECIALIST.PHONE REPRESENTATIVE Work Phone: [facility] 05-17-2023 12:10-0400 Body temperature 97.11 [degF] Robinson Henao MD Work Phone: [facility] 05-17-2023 12:10-0400 Body weight 77.02 kg Robinson Henao MD Work Phone: [facility] 05-17-2023 12:10-0400 Diastolic blood pressure 71 mm[Hg] Robinson Henao MD Work Phone: [facility] 05-17-2023 12:10-0400 Heart rate 62 /min Robinson Henao MD Work Phone: [facility] 05-17-2023 12:10-0400 Respiratory rate 18 /min Robinson Henao MD Work Phone: [facility] 05-17-2023 12:10-0400 SaO2% (BldA) [Mass fraction] 94 % Robinson Henao MD Work Phone: [facility] 05-17-2023 12:10-0400 Systolic blood pressure 154 mm[Hg] Robinson Hansen Work Phone: [facility] 10-30-2022 11:02-0500 Body height 177.8 cm Rigoberto Gould MD Work Phone: [facility] 10-30-2022 11:02-0500 Body weight 82.56 kg Rigoberto Gould MD Work Phone: [facility] 10-30-2022 11:02-0500 Diastolic blood pressure 66 mm[Hg] Rigoberto Gould MD Work Phone: [facility] 10-30-2022 11:02-0500 Heart rate 60 /min Rigoberto Gould MD Work Phone: [facility] 10-30-2022 11:02-0500 SaO2% (BldA) [Mass fraction] 95 % Rigoberto Golud MD Work Phone: [facility] 10-30-2022 11:02-0500 Systolic blood pressure 106 mm[Hg] Rigoberto Gould MD Work Phone: [facility] 07-31-2022 11:22-0500 Body height 177.8 cm Rigoberto Gould MD Work Phone: [facility] 07-31-2022 11:22-0500 Body weight 84.37 kg Rigoberto Gould MD Work Phone: [facility] 07-31-2022 11:22-0500 Diastolic blood pressure 80 mm[Hg] Rigoberto Gould MD Work Phone: [facility] 07-31-2022 11:22-0500 Heart rate 58 /min Rigoberto Gould MD Work Phone: [facility] 07-31-2022 11:22-0500 SaO2% (BldA) [Mass fraction] 95 % Rigoberto Gould MD Work Phone: [facility] 07-31-2022 11:22-0500 Systolic blood pressure 118 mm[Hg] Rigoberto Gould MD Work Phone: [facility] 06-05-2022 14:30-0400 Body weight 84.37 kg Rigoberto Gould MD Work Phone: [facility] 06-05-2022 14:30-0400 Diastolic blood pressure 64 mm[Hg] Rigoberto Gould MD Work Phone: [facility] 06-05-2022 14:30-0400 Heart rate 64 /min Rigoberto Gould MD Work Phone: [facility] 06-05-2022 14:30-0400 Systolic blood pressure 132 mm[Hg] Rigoberto Gould MD Work Phone: [facility] 03-06-2022 12:06-0400 Body temperature 98.01 [degF] WDavion Smith MD Work Phone: [facility] 03-06-2022 12:06-0400 Body weight 80.74 kg Samra Smith MD Work Phone: [facility] 03-06-2022 12:06-0400 Diastolic blood pressure 72 mm[Hg] Samra Smith MD Work Phone: [facility] 03-06-2022 12:06-0400 Heart rate 62 /min Samra Smith MD Work Phone: [facility] 03-06-2022 12:06-0400 Systolic blood pressure 143 mm[Hg] Samra Smith MD Work Phone: [facility] 12-02-2021 13:06-0400 Body weight 82.1 kg Rigoberto Gould MD Work Phone: [facility] 12-02-2021 13:06-0400 Diastolic blood pressure 72 mm[Hg] Rigoberto Gould MD Work Phone: [facility] 12-02-2021 13:06-0400 Heart rate 66 /min Rigoberto Gould MD Work Phone: [facility] 12-02-2021 13:06-0400 SaO2% (BldA) [Mass fraction] 93 % Rigoberto Gould MD Work Phone: [facility] 12-02-2021 13:06-0400 Systolic blood pressure 124 mm[Hg] Rigoberto Gould MD Work Phone: [facility] 2020 11:40-0500 BP Diastolic 77 mm[Hg] [...] Mass Index) 24.53 kg/m2 Lee Chacon MD [facility] Work Phone: 05-25-2017 13:57-0400 Body Temperature 98.4 [degF] Lee Chacon MD [facility] Work Phone: 05-25-2017 13:57-0400 BP Diastolic 90 mm[Hg] Lee Chacon MD [facility] Work Phone: 05-25-2017 13:57-0400 BP Systolic 164 mm[Hg] Lee Chacon MD [facility] Work Phone: 05-25-2017 13:57-0400 Height 177.8 cm Lee Chacon MD [facility] Work Phone: 05-25-2017 13:57-0400 Pulse (Heart Rate) 88 /min Lee Chacon MD [facility] Work Phone: 05-25-2017 13:57-0400 Respiratory Rate 18 /min Lee Chacon MD [facility] Work Phone: 05-25-2017 13:57-0400 Weight 77.57 kg Lee Chacon MD [facility] Work Phone: 05-25-2017 13:57-0400 Weight 77.56 kg Lee Chacon MD [facility] Work Phone: Encounters Encounter Date Encounter Type Care Provider Facility Start: 01-22-2025 End: 01-22-2025 Telephone encounter Jensen Puckett MD Work Phone: Urology Comment on above: CIC Clarification Start: 01-21-2025 ambulatory Efewvish Yasmani MANUEL Facility:[facility] Start: 01-09-2025 End: 01-23-2025 Telephone encounter Rigoberto Gould MD Work Phone: [facility] [place] Comment on above: Patient Update Start: 01-08-2025 End: 01-08-2025 Patient Outreach Floyd Richmond RN Work Phone: Attending Anesthesiologist Management Comment on above: Transition Of Care ( Reach in) Start: 01-07-2025 End: 01-16-2025 Evaluation and management of inpatient EVARISTO DAS Facility:[facility] Start: 01-06-2025 End: 01-07-2025 Dr. Rigoberto Gould MD Work Phone: -Emergency Department Work Phone: Start: 01-06-2025 End: 01-07-2025 Emergency department patient visit Dr. Rigoberto Gould MD Work Phone: [facility] Work Phone: Start: 01-06-2025 End: 01-06-2025 Nursing evaluation of patient and report Nurse [facility]rol [facility] Work Phone: Urology Comment on above: Urine retention (Caprice macey Dx) Start: 01-06-2025 End: 01-06-2025 ambulatory RIGOBERTO GOULD Facility:[facility] Start: 01-05-2025 End: 01-06-2025 Telephone encounter Jensen Puckett MD Work Phone: Urology Start: 01-02-2025 End: 01-02-2025 Telephone encounter Alexus Mendez LIQUIFIED NATURAL GAS SPECIALIST.ANGIOGRAPHER Work Phone: [facility] Comment on above: Medication Problem Start: 12-30-2024 End: 12-30-2024 ambulatory Macey Moe RN NURSE SEO CONSULTANT Start: 12-30-2024 End: 12-30-2024 Patient encounter procedure Macey Moe RN NURSE SEO CONSULTANT Comment on above: Referral Request Urinary retention (P rimary Dx) Start: 12-30-2024 End: 12-30-2024 Telephone encounter Rigoberto Gould MD Work Phone: [facility] Comment on above: Patient Update Start: 12-29-2024 End: 12-29-2024 Dr. Ra Aaron DO -Emergency Department Work Phone: Start: 12-29-2024 End: 12-29-2024 Emergency department patient visit Ra Aaron Facility:[facility] Start: 12-29-2024 End: 12-29-2024 Patient encounter procedure iRgoberto Gould MD Work Phone: [facility] Comment on above: Urinary tract infect ion without hematuria, site unspecified (Primary Dx); Urinary retention Start: 12-29-2024 End: 12-29-2024 ambulatory RIGOBERTO GOULD Facility:[facility] Start: 12-26-2024 End: 12-26-2024 Florencia [facility] Work Phone: Start: 12-26-2024 End: 12-26-2024 ambulatory Rigoberto Gould MD Work Phone: [facility] Comment on above: urine retention Start: 12-22-2024 End: 12-22-2024 [facility] Start: 12-22-2024 End: 12-22-2024 Emergency department patient visit Nicho Nelson Facility:[facility] Start: 12-17-2024 End: 12-17-2024 ambulatory NUPUR DE LA ROSA Facility:[facility] Start: 12-16-2024 End: 12-16-2024 ambulatory Yanet Preciado RN Work Phone: Attending Anesthesiologist Management Start: 12-15-2024 End: 12-16-2024 Patient Outreach Kristan Fontanez RN Attending Anesthesiologist Management Comment on above: Transition Of Care ( TCM Initial Hospital Discharge-OON) Start: 12-13-2024 Non-patient / Non-visit Dr. Dulce Restrepo MD -[facility] Work Phone: Start: 12-13-2024 Dr. Sukumar Schilling -[facility] Work Phone: Start: 12-13-2024 Non-patient / Non-visit Dr. Clari Claire MD [facility] Start: 12-13-2024 Dr. Jensen ortega MD [facility] Start: 12-12-2024 ambulatory José Miguel Nunez Facility:[facility] Start: 12-12-2024 Non-patient / Non-visit Dr. Fran RASMUSSEN [facility] Start: 12-12-2024 Dr. José Miguel Nunez MD [facility] Start: 12-12-2024 Non-patient / [facility] Start: 12-12-2024 Dr[facility] Start: 12-11-2024 ambulatory Jensen Claire Facility :[facility] Start: 12-11-2024 Non-patient / Non-[facility] Start: 12-11-2024 Dr. [facility] Start: 12-11-2024 Non-patient / Non-visit Dr. Marjan Granados MD [facility] Work Phone: Start: 12-11-2024 ambulatory Mary Jo Granados Facility :[facility] Start: 12-11-2024 End: 12-13-2024 Evaluation and management of inpatient Dr. Mary Jo Granados MD -Progressive Care Unit Work Phone: Start: 12-11-2024 End: 12-13-2024 Dr. Sukumar Restrepo MD -Progressive Care Unit Work Phone: Start: 12-05-2024 End: 12-05-2024 ambulatory ALEXUS MENDEZ Facility:[facility] Start: 12-05-2024 End: 12-05-2024 Office outpatient visit 15 minutes Alexus Mendez LIQUIFIED NATURAL GAS SPECIALIST.ANGIOGRAPHER Work Phone: [facility] [place] Comment on above: Chronic insomnia (Pr imary Dx); URI, acute; Type 2 diabetes mellitus without complication, with long-term current use of insulin (HCC); Arteriosclerotic heart disease (ASHD) Start: 12-03-2024 ambulatory UNKNOWN PROVIDER Facili ty:[facility] Start: 12-03-2024 End: 12-03-2024 Subsequent hospital visit by physician Gi/Gu 1 [facility] Work Phone: Radiology Comment on above: Pain of right hip [M 25.551] Start: 11-26-2024 End: 11-26-2024 Subsequent hospital visit by physician [facility] 1 Work Phone: Molecular Imaging Comment on above: Pain of right hip [M 25.551] Start: 11-26-2024 End: 11-28-2024 ambulatory Alexus Mendez LIQUIFIED NATURAL GAS SPECIALIST.ANGIOGRAPHER Work Phone: [facility] [place] Comment on above: Cough Start: 11-26-2024 End: 11-26-2024 Subsequent hospital visit by physician [facility] 1 Work Phone: Molecular Imaging Comment on above: Pain of right hip [M 25.551] Start: 11-20-2024 End: 11-21-2024 Telephone encounter Rigoberto Gould MD Work Phone: [facility] [place] Comment on above: Home Health Orders Results Start: 11-14-2024 End: 11-14-2024 ambulatory RIGOBERTO GOULD Facility:[facility] Start: 11-14-2024 End: 11-14-2024 Patient encounter procedure Nupur De La Rosa MD Work Phone: Orthopaedics Comment on above: Pain of right hip (P rimary Dx) Start: 11-14-2024 End: 11-14-2024 ambulatory RIGOBERTO Simeon GOULD Facility:[facility] Start: 11-14-2024 End: 11-14-2024 Subsequent hospital visit by physician Radio Gonzales [facility] Work Phone: Radiology Comment on above: Status [...] End: 11-09-2024 ambulatory Candice Mayer RN NURSE SEO CONSULTANT Comment on above: FYI-No Action Needed Start: 11-09-2024 End: 11-23-2024 Telephone encounter Kolton Hein MD Work Phone: [place] [facility] Adult Start: 10-28-2024 End: 10-28-[address] Jensen Claire MD -[facility] Work Phone: Start: 10-28-2024 End: 10-28-2024 Dr. Jensen Claire MD -[facility] Work Phone: Start: 10-28-2024 End: 10-28-2024 ambulatory Jensen Claire Facility[facility] Start: 10-17-2024 End: 10-17-2024 ambulatory NUPUR DE LA ROSA Facility:[facility] Start: 10-17-2024 End: 10-17-2024 Patient encounter procedure Nupur De La Rosa MD Work Phone: Orthopaedics Comment on above: Right leg pain (Prim alexis Dx) Start: 10-08-2024 End: 10-09-2024 Telephone encounter Alexus Mendez LIQUIFIED NATURAL GAS SPECIALIST.ANGIOGRAPHER Work Phone: [facility] [place] Comment on above: Medication Problem Start: 10-07-2024 End: 10-07-2024 ambulatory ALEXUS MENDEZ Facility:[facility] Start: 10-07-2024 End: 10-07-2024 Office outpatient visit 15 minutes Alexus Mendez LIQUIFIED NATURAL GAS SPECIALIST.ANGIOGRAPHER Work Phone: [facility] [place] Comment on above: Itching (Primary Dx) ; [...] Start: 09-22-2024 End: 09-22-2024 ambulatory UNKNOWN PROVIDER Facility:[facility] Start: 09-22-2024 End: 09-22-2024 Subsequent hospital visit by physician [facility] Work Phone: Radiology Comment on above: Pain in right hip [M 25.551] Start: 09-17-2024 End: 09-17-2024 ambulatory Alexus Mendez LIQUIFIED NATURAL GAS SPECIALIST.ANGIOGRAPHER Work Phone: [facility] [place] Comment on above: Leg pain Start: 09-12-2024 ambulatory Jensen Claire Facility :[facility] Start: 09-04-2024 End: 09-04-2024 Office outpatient visit 15 minutes Alexus Mendez LIQUIFIED NATURAL GAS SPECIALIST.ANGIOGRAPHER Work Phone: [facility] [place] Comment on above: Nausea (Primary Dx); Gastroenteritis; ESRD (end stage renal disease) on dialysis ([facility]) Start: 09-04-2024 End: 09-04-2024 ambulatory ALEXUS A SUPPAN Facility:[facility] Start: 09-03-2024 End: 09-03-2024 Telephone encounter Alexus Mendez LIQUIFIED NATURAL GAS SPECIALIST.ANGIOGRAPHER Work Phone: [facility] [place] Comment on above: Patient Update Start: 09-01-2024 End: 09-01-2024 Telephone encounter Rigoberto Gould MD Work Phone: [facility] [place] Comment on above: Patient Update; Macrina [...] 07-15-2024 End: 07-15-2024 Telephone encounter Alexus Mendez LIQUIFIED NATURAL GAS SPECIALIST.ANGIOGRAPHER Work Phone: [facility] [place] Start: 07-04-2024 End: 07-04-2024 Refill [facility] [place] Comment on above: Refill Request Start: 06-30-2024 End: 07-11-2024 Telephone encounter Alexus Mendez LIQUIFIED NATURAL GAS SPECIALIST.ANGIOGRAPHER Work Phone: [facility] [place] Comment on above: Medication Problem Start: 06-30-2024 End: 06-30-2024 ambulatory ALEXUS A SUPPAN Facility:[facility] Start: 06-30-2024 End: 06-30-2024 Office outpatient visit 25 minutes Alexus Mendez APRN.CNP Work Phone: [facility] Comment on above: Ischemic cardiomyopa thy (Primary Dx); Screening for diabetic retinopathy; Screening for depression; Encounter for screening examination for other mental health and behavioral disorders; Arteriosclerotic heart disease (ASHD); Chronic kidney disease (CKD), stage V ([facility]); Encounter for immunization; Gastrointestinal hemorrhage, unspecified gastrointestinal hemorrhage type; Type 2 diabetes mellitus without complication, with long-term current use of insulin ([facility]); PVD (peripheral vascular disease) ([facility]); Hypertension, essential; ESRD (end stage renal disease) on dialysis ([facility]) Start: 06-25-2024 End: 06-25-2024 Patient encounter procedure Nupur De La Rosa MD Work Phone: Orthopaedics Comment on above: Stress fracture of n avicular bone of right foot (Primary Dx); Other closed fracture of proximal end of right tibia, initial encounter Start: 06-25-2024 End: 06-25-2024 ambulatory UNKNOWN PROVIDER Facility:[facility] Start: 06-25-2024 End: 06-25-2024 Subsequent hospital visit by physician [facility] Leroy Work Phone: Radiology Comment on above: Pain [R52] Start: 05-19-2024 End: 05-19-2024 ambulatory NUPUR DE LA ROSA Facility:[facility] Start: 05-19-2024 End: 05-19-2024 Patient encounter procedure Nupur De La Rosa MD Work Phone: Orthopaedics Comment on above: Acute right ankle pa in (Primary Dx) Start: 05-07-2024 End: 05-07-2024 Subsequent hospital visit by physician [facility] Leroy Work Phone: Radiology Comment on above: Acute right ankle pa in [M25.571] Start: 05-07-2024 End: 05-07-2024 ambulatory RIGOBERTO GOULD Facility:[facility] Start: 05-07-2024 End: 05-07-2024 Patient encounter procedure [...] Start: 04-02-2024 End: 04-02-2024 ambulatory UNKNOWN PROVIDER Facility:[facility] Start: 04-02-2024 End: 04-02-2024 Subsequent hospital visit by physician [facility] Mob Work Phone: Radiology Comment on above: Right knee pain, uns pecified chronicity [M25.561] Start: 03-27-2024 End: 03-27-2024 ambulatory RIGOBERTO GOULD Facility:[facility] Start: 03-27-2024 End: 03-27-2024 Office outpatient visit 25 minutes Alexus Mendez APRN.ANGIOGRAPHER Work Phone: [facility] Comment on above: Umbilical hernia wit hout obstruction or gangrene (Primary Dx); Seasonal allergic rhinitis due to pollen; Ischemic cardiomyopathy; History of coronary artery bypass graft; JOHNY (obstructive sleep apnea); PVD (peripheral vascular disease) ([facility]) Start: 03-03-2024 End: 03-03-2024 Patient encounter procedure Nupur De La Rosa MD Work Phone: Orthopaedics Comment on above: Other closed fractur e of proximal end of right tibia, initial encounter (Primary Dx) Start: 03-03-2024 End: 03-03-2024 ambulatory UNKNOWN PROVIDER Facility:[facility] Start: 03-03-2024 End: 03-03-2024 Subsequent hospital visit by physician [facility] Leroy Work Phone: Radiology Comment on above: [...] Subsequent hospital visit by physician Radio Gonzales [facility] Work Phone: Radiology Comment on above: Acute pain of right knee [M25.561] Start: 02-13-2024 End: 02-13-2024 ambulatory NUPUR DE LA ROSA Facility:[facility] Start: 02-13-2024 End: 02-13-2024 Patient encounter procedure uNpur De La Rosa MD Work Phone: Orthopaedics Comment on above: Acute right ankle pa in (Primary Dx); Acute pain of right knee; Other closed fracture of proximal end of right tibia, initial encounter; Right knee pain, unspecified chronicity; Ankylosing spondylitis of multiple sites in spine ([facility]); PVD (peripheral vascular disease) ([facility]) Start: 02-07-2024 Telephone encounter Nuupr De La Rosa MD Work Phone: Orthopaedics Comment on above: Appointment Start: 02-05-2024 Telephone encounter Rigoberto Gould MD Work Phone: [facility] Comment on above: Patient Update Start: 01-14-2024 End: 01-14-2024 Nursing evaluation of patient and report Nurse Nery [facility] Work Phone: General Surgery Comment on [...] 11-08-2023 Subsequent hospital visit by physician Herman [facility] [place] Work Phone: Radiology Comment on above: 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] Start: 11-08-2023 End: 11-08-2023 Office outpatient visit 15 minutes Alexus Mendez APRN.PHONE REPRESENTATIVE Work Phone: [facility] [place] Comment on above: 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) Start: 05-17-2023 End: 05-17-2023 Patient encounter procedure Robinson Henao MD Work Phone: [place] [facility] Comment on above: URI, acute (Primary Dx) Start: 04-20-2023 End: 12-29-2024 Preprocedural examination done Robinson Henao MD Work Phone: [facility] Work Phone: Start: 01-01-2023 Telephone encounter Rigoberto Gould MD Work Phone: [facility] [place] Comment on above: Admit to Jason Jain n Start: 01-01-2023 End: 01-04-2023 Evaluation and management of inpatient RAMÓN BYRD Facility:[id number] Start: 10-30-2022 End: 10-30-2022 Patient encounter procedure Rigoberto Gould MD Work Phone: [facility] [place] Comment on above: Mononeuropathy due t o underlying disease (Primary Dx); PVD (peripheral vascular disease) ([facility]); 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 due to underlying condition, unspecified proliferative retinopathy type ([facility]); ESRD (end stage renal disease) on dialysis ([facility]); Chronic combined systolic and diastolic CHF (congestive heart failure) ([facility]); Ankylosing spondylitis of multiple sites in spine ([facility]); Hypertension, essential; Ischemic cardiomyopathy; JOHNY (obstructive sleep apnea); Osteopenia, senile; Screening for colon cancer; Type 2 diabetes mellitus without complication, with long-term current use of insulin ([facility]) Start: 07-31-2022 End: 07-31-2022 Patient encounter procedure Rigoberto Gould MD Work Phone: [facility] [place] Comment on above: C. difficile colitis (Primary Dx); Need for vaccination; Arteriosclerotic heart disease (ASHD); Hypertension, essential; Ischemic cardiomyopathy; ESRD (end stage renal disease) on dialysis (HCC); JOHNY (obstructive sleep apnea) Start: 07-26-2022 Telephone encounter Aditya Davis CHELSI-C Work Phone: [facility] [place] Comment on above: Referral Request Start: 07-02-2022 Telephone encounter Aditya Davis CHELSI-C Work Phone: [facility] [place] Comment on above: Medication Problem Start: 06-29-2022 Telephone encounter Aditya Davis CHELSI-C Work Phone: [facility] [place] Comment on above: Patient Update Start: 06-22-2022 Telephone encounter Aditya Davis CHELSI-C Work Phone: [facility] [place] Comment on above: Patient Question Start: 06-08-2022 Telephone encounter Aditya Davis CHELSI-C Work Phone: [facility] [place] Comment on above: FYI-PT plan of care [...] Telephone encounter Aditya Davis PA-C Work Phone: [facility] [place] Comment on above: Patient Update Start: 04-11-2022 Telephone encounter Aditya Davis PA-C Work Phone: [facility] [place] Comment on above: Results Start: 03-30-2022 Telephone encounter Aditya Davis PA-C Work Phone: [facility] [place] Comment on above: Patient Question Start: 03-06-2022 ambulatory OUMOU Hadley ity:[facility] Start: 03-06-2022 End: 03-06-2022 Office outpatient new 30 minutes Samra Smith MD Work Phone: [facility] Comment on above: Pre-transplant evalu ation for kidney transplant (Primary Dx) Start: 03-06-2022 End: 03-06-2022 Patient encounter status Samra Smith MD Work Phone: [facility] Start: 02-20-[address] [facility] Start: 12-02-2021 End: 12-02-2021 Patient encounter procedure Rigoberto Gould MD Work Phone: [facility] Comment on above: Arteriosclerotic hea rt disease (ASHD) (Primary Dx); Mononeuropathy due to underlying disease; Hypertension, essential; Acute on chronic diastolic congestive heart failure (HCC); Ischemic cardiomyopathy; History of coronary artery bypass graft; Anemia of chronic renal failure, stage 3 (moderate), unspecified whether stage 3a or 3b CKD ([facility]); Chronic kidney disease, stage IV (severe) ([facility]); 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 due to underlying condition, unspecified proliferative retinopathy type ([facility]) Start: 11-14-2021 Telephone encounter Rigoberto Gould MD Work Phone: [facility] [place] Comment on above: Lab Orders Start: 01-26-2021 End: 01-26-2021 Subsequent hospital visit by physician Nick Mancilla MD Work Phone: [facility] Vascular Lab Comment on above: ESRD needing dialysi s ([facility]); Bypass graft stenosis, initial encounter ([facility]) Start: 2020 End: 2020 Subsequent hospital visit by physician Nick Mancilla Work Phone: [facility] General Surgery Comment on above: Chronic kidney disea se, stage IV (severe) (HCC) (Primary Dx) Start: 11-03-2020 End: 11-03-2020 Subsequent hospital visit by physician Nick Mancilla Work Phone: [facility] Pre-Admit Testing Comment on above: Arrived Start: 07-17-2018 End: 07-22-2018 Evaluation and management of inpatient Jensen Peguero Facility:[facility] Start: 07-15-2018 Patient encounter procedure Jensen Peguero Facility:[facility] Start: 07-12-2018 Patient encounter procedure Jensen Peguero Facility:[facility] Start: 07-10-2018 Patient encounter procedure Jensen Peguero Facility:[facility] Start: 07-08-2018 Patient encounter procedure Jensen Peguero Facility:[facility] Start: 07-04-2018 Patient encounter procedure Jensen Peguero Facility:[facility] Start: 05-20-2018 End: 05-21-2018 Patient encounter STACI BRUNO Facility:B Start: 02-20-2018 Evaluation and manag ement of inpatient Jensen Peguero Facility:[facility] Start: 02-15-2018 Patient encounter procedure Jensen Peguero Facility:[facility] Start: 02-13-2018 Patient encounter procedure Jensen Peguero Facility:[facility] Start: 02-12-2018 Patient encounter procedure Jensen Peguero Facility:[facility] Start: 02-06-2018 Patient encounter procedure Jensen Peguero Facility:[facility] Start: 08-15-2017 End: 08-20-2017 Patient encounter OSMAN COOPER Facility:[facility] Start: 08-15-2017 End: 08-15-2017 Emergency [...] Adult depression scr eening assessment Alexus Mendez LIQUIFIED NATURAL GAS SPECIALIST.ANGIOGRAPHER Work Phone: Start: 04-02-2024 Radiologic exam knee complete 4/more views Ra Whatley PA-C Work Phone: Start: 03-03-2024 Radiologic exam knee complete 4/more views Ra Whatley PA-C Work Phone: Start: 02-13-2024 Radex ankle complete minimum 3 views Nupur De La Rosa MD Work Phone: Start: 11-08-2023 Radiologic examinati on tibia & fibula 2 views Alexus Mendez LIQUIFIED NATURAL GAS SPECIALIST.ANGIOGRAPHER Work Phone: Start: 05-17-2023 Sars-cov-2 detection by dna/rna Robinson Henao MD Work Phone: Start: 01-03-2023 History of coronary artery bypass grafting Hx of CABG Rigoberto Gould MD Work Phone: Start: 01-01-2023 Antibody screen RAMÓN CORINE Comment on above: Order Comment: Speci men Type: BLOOD SPECIMENOrdering Facility: [facility] Address: [address] [address] Performed By: #### T SCR, %LAWR[place], DAGT ####[facility] BLOOD BANKCLIA [id number] [address] Start: 04-28-2022 Antibody screen RAMÓN CORINE Comment on above: Order Comment: Speci men Type: BLOOD SPECIMENOrdering Facility: [facility] Address: [address] [address] Performed By: #### T SCR ####[facility] BLOOD BANKCLIA [id number] [address] [facility] Start: 03-06-2022 End: 03-06-2022 Antibody screen Samra Smith MD Work Phone: Comment on above: Performed By: #### B ILTO, IPB, URICB, TP #### [facility] (DEFAULT) [address] [place] [address] Start: 03-06-2022 Albumin serum plasma /whole blood [...] coronary artery bypass graft Alexus Wallace Andrea TOLEDO.ANGIOGRAPHER Work Phone: Plan of Treatment Date Care Activity Detail Author Start: 05-19-2028 DTaP/Tdap/Td vaccine (2 - Td or Tdap) DTaP/Tdap/Td vaccine (2 - Td or Tdap) [facility] Work Phone: Start: 05-19-2028 DTaP/Tdap/Td vaccine (2 - Td) DTaP/Tdap/Td vaccine (2 - Td) [facility] Work Phone: Start: 05-19-2028 Urine microalbumin profile [facility] Start: 07-31-2027 PROSTATE CANCER SCREENING DISCUSSION PROSTATE CANCER SCREENING DISCUSSION [facility] Start: 07-31-2027 Prostate specific antigen measurement Prostate Cancer Screening Discussion [facility] Start: 01-16-2026 Complete blood count Hemoglobin/Hematocrit [facility] Start: 01-16-2026 Creatinine measurement Serum Creatinine [facility] Start: 01-08-2026 Complete blood count Hemoglobin/Hematocrit [facility] Start: 01-08-2026 Creatinine measurement Serum Creatinine [facility] Start: 01-06-2026 BP Controlled (<130/80) BP Controlled (<130/80) [facility] Start: 12-29-2025 Annual PCP Team Chronic Disease Visit Annual PCP Team Chronic Disease Visit [facility] Start: 12-29-2025 BP Controlled (<130/80) BP Controlled (<130/80) [facility] Start: 12-05-2025 Annual PCP Team Chronic Disease Visit Annual PCP Team Chronic Disease Visit [facility] Start: 12-05-2025 BP Controlled (<130/80) BP Controlled (<130/80) [facility] Start: 11-14-2025 Complete blood count Hemoglobin/Hematocrit [facility] Start: 10-07-2025 Annual PCP Team Chronic Disease Visit Annual PCP Team Chronic Disease Visit [facility] Start: 10-07-2025 BP Controlled (<130/80) BP Controlled (<130/80) [facility] Start: 09-04-2025 Annual PCP Team Chronic Disease Visit Annual PCP Team Chronic Disease Visit [facility] Start: 09-04-2025 BP Controlled (<130/80) BP Controlled (<130/80) [facility] Start: 06-30-2025 Anxiety Screening Anxiety Screening [facility] Start: 06-30-2025 BP Controlled (<130/80) BP Controlled (<130/80) [facility] Start: 06-30-2025 Covid-19 Vaccine () Covid-19 Vaccine ( season) [facility] Comment on above: Postponed from 04/27/2024 (Declined at t his time) Start: 06-30-2025 Depression Screening Depression Screening [facility] Start: 06-30-2025 Hepatitis A Vaccine (1 of 2 - Risk 2-dose series) Hepatitis A Vaccine (1 of 2 - Risk 2-dose series) [facility] Comment on above: Postponed from 1976 (Declined at t his time) Start: 06-30-2025 RSV Vaccine (1 - Risk 60-74 years 1-dose series) RSV Vaccine (1 - Risk 60-74 years 1-dose series) [facility] Comment on above: Postponed from 2017 (Declined at t his time) Start: 06-30-2025 Shingrix Vaccine (1 of 2) Shingrix Vaccine (1 of 2) [facility] Comment on above: Postponed from 1976 (Declined at t his time) Start: 05-19-2025 Glaucoma screening Dilated Retinal Exam [facility] Start: 05-02-2025 Glaucoma screening Dilated Retinal Exam [facility] Start: 03-23-2025 End: 03-23-2025 Patient encounter procedure 03/23/2025 2:30 PM EDT Office Visit Orthopaedics [address] [address] Nupur De La Rosa MD [address] [address] 6 momth check up Orthopaedics Comment on above: 6 momth check up Start: 02-24-2025 End: 02-24-2025 Patient encounter procedure 02/24/2025 2:00 PM EDT Office Visit Urology [address] [address] Jensen Puckett Jr., MD [address] [place] [address] Puckett Urology Comment on above: cysto per Dr Puckett Start: 01-30-2025 End: 01-30-2025 Patient encounter procedure 01/30/2025 1:45 PM EDT Office Visit Orthopaedics [address] [address] Nupur De La Rosa MD [address] [address] Follow-up on nonoperative sacral fracture Orthopaedics Comment on above: Follow-up on nonoperative sacral fractur e Start: 01-14-2025 End: 01-14-2025 Patient encounter procedure 01/14/2025 4:20 PM EDT Office Visit Family [facility] [address] [place] [address] Rigoberto Gould MD [address] [place] [address] Below follow up visit from e r [facility] [place] Comment on above: Below follow up visit from e r Start: 01-12-2025 End: 01-12-2025 Patient encounter procedure 01/12/2025 11:00 AM EDT Office Visit Family [facility] [place] [address] [place] [address] Rigoberto Gould MD [address] [place], [place] [id number] Hospital F/U [facility] retention [facility] [place] Comment on above: Hospital F/U [facility] retention Start: 01-09-2025 End: 01-09-2025 Patient encounter procedure 01/09/2025 2:45 PM EDT Office Visit Orthopaedics [address] [address] Nupur De La Rosa MD [address] [address] 3 week follow up- R knee Orthopaedics Comment on above: 3 week follow up- R knee Start: 01-07-2025 [facility] Start: 01-06-2025 End: 01-06-2025 Nursing evaluation of patient and report 01/06/2025 1:00 PM EDT Nurse Visit Urology [address] [address] , Nurse Urol Iredell [address] [place], [place] [id number] straight cath bladder drain per Dr Puckett Urology Comment on above: straight cath bladder drain per Dr Rogerio delcid Start: 12-30-2024 End: 12-30-2024 Patient encounter procedure 12/30/2024 2:45 PM EDT Office Visit Urology [address] [address] Jensen Puckett Jr., MD [address] [place], [place] [id number] Urinary retention [R33.9] Urology Comment on above: Urinary retention [R33.9] Start: 12-30-2024 End: 03-31-2025 Bacteria identified in Urine by Culture BACTERIAL CULTURE, URINE Microbiology Routine Urinary retention Expected: 12/30/2024, Expires: 03/31/2025 [facility] Work Phone: Comment on above: Expected: 12/30/2024, Expires: Start: 12-29-2024 [facility] Start: 12-29-2024 End: 12-29-2024 Patient encounter procedure 12/29/2024 2:40 PM EDT Office Visit [facility] [place] [address] [place], [place] [id number] Rigoberto Gould MD [address] [place], [place] [id number] 6 month f/u [facility] [place] Comment on above: 6 month f/u Start: 12-26-2024 Evaluation of diagnostic study results [facility] Start: 12-22-2024 [facility] Start: 12-17-2024 End: 12-17-2024 Patient encounter procedure 12/17/2024 2:30 PM EDT Office Visit Orthopaedics [address] [address] Nupur De La Rosa MD [address] [address] 2 mo follow up- R knee Orthopaedics Comment on above: 2 mo follow up- R knee Start: 12-13-2024 End: 12-13-2024 [facility] Start: 12-13-2024 Hemodialysis care [facility] Start: 12-13-2024 Patient discharge [facility] Start: 12-12-2024 [facility] Start: 12-12-2024 End: 12-12-2024 [facility] Start: 12-12-2024 Hemodialysis care [facility] Start: 12-11-2024 Following clinical pathway protocol [facility] Start: 12-11-2024 Application of elastic bandage [facility] Start: 12-11-2024 Assessment of risk of venous thromboembolism [facility] Start: 12-11-2024 Bacteria identified in Sputum by Culture [facility] Start: 12-11-2024 Care regimes management [facility] Start: 12-11-2024 Elevation of affected extremity [facility] Start: 12-11-2024 Incentive spirometry [facility] Start: 12-11-2024 Inhalation therapy procedure [facility] Start: 12-11-2024 Insertion of catheter into peripheral vein [facility] Start: 12-11-2024 Introduction of urinary catheter [facility] Start: 12-11-2024 Measuring intake and output [facility] Start: 12-11-2024 Notification of physician [facility] Start: 12-11-2024 Oxygen therapy [facility] Start: 12-11-2024 Patient education [facility] Start: 12-11-2024 Providing care according to standard [facility] Start: 12-11-2024 Provision of activity privileges [facility] Start: 12-11-2024 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 joiner apprentice [facility] Start: 12-11-2024 Referral to service [facility] Start: 12-11-2024 End: 12-11-2024 [facility] Start: 12-11-2024 Verification routine [facility] Start: 12-11-2024 Admission procedure [facility] Start: 12-11-2024 Hospital admission, emergency, from emergency room, medical nature [facility] Start: 12-11-2024 Patient referral to dietitian [facility] Start: 12-06-2024 BP Controlled (<130/80) BP Controlled (<130/80) [facility]ic Start: 12-05-2024 End: 03-06-2025 Hemoglobin A1c in Blood HEMOGLOBIN A1C Lab Routine Type 2 diabetes mellitus without complication, with long-term current use of insulin (HCC) Expected: 12/05/2024, Expires: 03/06/2025 [facility] Work Phone: Comment on above: Expected: 12/05/2024, Expires: Start: 12-05-2024 End: 03-06-2025 LIPID PANEL, NONFASTING LIPID PANEL, NONFASTING Lab Routine Arteriosclerotic heart disease (ASHD) Expected: 12/05/2024, Expires: 03/06/2025 [facility] Comment on above: Expected: 12/05/2024, Expires: Start: 12-05-2024 End: 03-06-2025 Thyrotropin [Units/volume] in Serum or Plasma THYROID STIMULATING HORMONE Lab Routine Type 2 diabetes mellitus without complication, with long-term current use of insulin (HCC) Expected: 12/05/2024, Expires: 03/06/2025 [facility] Comment on above: Expected: 12/05/2024, Expires: Start: 12-05-2024 End: 12-05-2024 Patient encounter procedure 12/05/2024 1:20 PM EDT Office Visit [facility] [place] [address] [place] [address] Alexus Mendez, LIQUIFIED NATURAL GAS SPECIALIST.ANGIOGRAPHER [address] [place] [address] Follow up, cough [facility] [place] Comment on above: Follow up, cough Start: 12-03-2024 End: 12-03-2024 Patient encounter procedure 12/03/2024 9:30 AM EDT Appointment Radiology [address] [place] [address] Rt Hip Aspiration Radiology Comment on above: Rt Hip Aspiration Start: 11-26-2024 End: 11-26-2024 Patient encounter procedure 11/26/2024 1:15 PM EDT Appointment Molecular Imaging [address] [place] [id number] M25.551,NM 3 PHASE,PT CALLING,ORDER IN EPIC [facility] Comment on above: M25.551,NM 3 PHASE,PT CALLING,ORDER IN E PIC Start: 11-26-2024 End: 11-26-2024 Patient encounter procedure 11/26/2024 8:45 AM EDT Appointment Molecular Imaging [address] [place] [phone] M25.551,NM 3 PHASE,PT CALLING,ORDER IN EPIC [facility] Comment on above: M25.551,NM 3 PHASE,PT CALLING,ORDER IN E PIC Start: 11-21-2024 End: 02-20-2025 SYNOVIAL FLUID, CRYSTAL ID/PATHOLOGIST INTERPRETATION SYNOVIAL FLUID, CRYSTAL ID/PATHOLOGIST INTERPRETATION Lab Routine Pain of right hip Status post right hip replacement Expected: 11/21/2024, Expires: 02/20/2025 [facility] Comment on above: Expected: 11/21/2024, Expires: Start: 11-14-2024 End: 11-14-2024 Patient encounter procedure Orthopaedics Comment on above: RIGHT HIP R femur Start: 11-13-2024 Glaucoma screening Dilated Retinal Exam [facility] Start: 10-17-2024 End: 10-17-2024 Patient encounter procedure 10/17/2024 4:15 PM EST Office Visit Orthopaedics [address] [address] Nupur De La Rosa MD [address] [address] Contacted patient due to provider being absent left voicemail- Orthopaedics Comment on above: Contacted patient due to provider being absent left voicemail- Start: 10-08-2024 End: 10-08-2024 Patient encounter procedure 10/08/2024 9:30 AM EST Office Visit Orthopaedics [address] [address] Nupur De La Rosa MD [address] [phone] Follow up (ok per Dr De La Rosa) Orthopaedics Comment on above: Follow up (ok per Dr De La Rosa) Start: 10-07-2024 End: 10-07-2024 Patient encounter procedure 10/07/2024 2:40 PM EST Office Visit [facility] [place] [address] [place] [address] Alexus Mendez APRN.ANGIOGRAPHER [address] [place], [place] [phone] dry skin x 3 weeks, location arms, shoulder, stomach and back [facility] [place] Comment on above: dry skin x 3 weeks, location arms, shoul rip, stomach and back Start: 09-26-2024 End: 09-26-2024 Patient encounter procedure Orthopaedics Comment on above: right knee pain right hip/knee pain Start: 09-05-2024 End: 09-05-2024 Patient encounter procedure 09/05/2024 10:30 AM EST Office Visit Orthopaedics [address] [phone] Maco Rivera PA-C [address] [place], [place] [phone] right knee pain Orthopaedics Comment on above: right knee pain Start: 09-04-2024 End: 09-04-2024 Patient encounter procedure 09/04/2024 8:00 AM EST Office Visit [facility] [place] [address] [place], [place] [id number] Alexus Mendez APRN.ANGIOGRAPHER [address] [place], [place] [address] Has had the flu and unable to go to dialysis this week (,sun,sun ) [facility] [place] Comment on above: Has had the flu and unable to go to dial ysis this week (,sun,sun ) Start: 09-01-2024 End: 09-01-2024 Patient encounter procedure Radiology Comment on above: right knee and hip pain right knee pain Start: 08-27-2024 Diabetic foot examination Diabetic Foot Exam [facility] Comment on above: Postponed from 03/13/2023 (Insurance Cov erage) Start: 08-17-2024 Glaucoma screening Dilated Retinal Exam [facility] Start: 06-30-2024 End: 09-29-2024 CREATININE BLD CREATININE BLD Lab Routine Chronic kidney disease (CKD), stage V (HCC) Expected: 06/30/2024, Expires: 09/29/2024 [facility] Comment on above: Expected: 06/30/2024, Expires: Start: 06-30-2024 End: 09-29-2024 Hematocrit [Volume Fraction] of Blood HEMATOCRIT Lab Routine Chronic kidney disease (CKD), stage V (HCC) Expected: 06/30/2024, Expires: 09/29/2024 [facility] Comment on above: Expected: 06/30/2024, Expires: Start: 06-30-2024 End: 09-29-2024 Hemoglobin [Mass/volume] in Blood HEMOGLOBIN Lab Routine Chronic kidney disease (CKD), stage V (HCC) Expected: 06/30/2024, Expires: 09/29/2024 [facility] Comment on above: Expected: 06/30/2024, Expires: Start: 06-30-2024 End: 09-29-2024 Hemoglobin A1c in Blood HEMOGLOBIN A1C Lab Routine Screening for diabetic retinopathy Expected: 06/30/2024, Expires: 09/29/2024 [facility] Work Phone: Comment on above: Expected: 06/30/2024, Expires: Start: 06-30-2024 End: 09-29-2024 LIPID PANEL, NONFASTING LIPID PANEL, NONFASTING Lab Routine Screening for diabetic retinopathy Arteriosclerotic heart disease (ASHD) Expected: 06/30/2024, Expires: 09/29/2024 [facility] Comment on above: Expected: 06/30/2024, Expires: Start: 06-30-2024 Screening for malignant neoplasm of colon Colorectal Cancer Screening [facility] Comment on above: Postponed from 2002 (Declined at t his time) Start: 06-30-2024 End: 06-30-2024 Patient encounter procedure 06/30/2024 12:40 PM EST Office Visit [facility] [place] [address] [place] [address] Alexus Mendez, LIQUIFIED NATURAL GAS SPECIALIST.ANGIOGRAPHER [address] [place] [address] 3 month f/u [facility] [place] Comment on above: 3 month f/u Start: 06-25-2024 End: 06-25-2024 Patient encounter procedure 06/25/2024 11:30 AM EDT Office Visit Orthopaedics [address] [address] Nupur De La Rosa MD [address] [phone] 1 m f/u, right ankle Orthopaedics Comment on above: 1 m f/u, right ankle Start: 06-07-2024 Annual PCP Team Chronic Disease Visit Annual PCP Team Chronic Disease Visit [facility] Start: 05-19-2024 End: 05-19-2024 Patient encounter procedure 05/19/2024 2:00 PM EDT Office Visit Orthopaedics [address] [phone] Nupur De La Rosa MD [address] [id number] 2 week follow up Orthopaedics Comment on above: 2 week follow up Start: 05-07-2024 End: 05-07-2024 Patient encounter procedure 05/07/2024 1:00 PM EDT Office Visit Orthopaedics [address] [address] Nupur De La Rosa MD [address] [address] 1 month follow up for right knee Orthopaedics Comment on above: 1 month follow up for right knee Start: 04-27-2024 Covid-19 Vaccine () Covid-19 Vaccine () [facility] Start: 04-27-2024 Covid-19 Vaccine () Covid-19 Vaccine () [facility] Start: 04-27-2024 Influenza [facility] Start: 04-23-2024 Creatinine measurement Serum Creatinine [facility] Start: 04-23-2024 Serum Creatinine Serum Creatinine [facility] Start: 04-02-2024 End: 04-02-2024 Patient encounter procedure Orthopaedics Comment on above: Right Knee Fracture - 4 Week Follow Up knee pain Start: 03-03-2024 End: 03-03-2024 Patient encounter procedure Orthopaedics Comment on above: 3 week follow up, right knee fx knee pain Start: 02-13-2024 End: 02-13-2024 Patient encounter procedure 02/13/2024 2:15 PM EDT Office Visit Orthopaedics [address] [address] Nupur De La Rosa MD [address] [address] right tibeal platue fracture was in ER Sonya 02/01 Orthopaedics Comment on above: right tibeal platue fracture was in ER V dino 02/01 Start: 01-14-2024 End: 01-14-2024 Nursing evaluation of patient and report 01/14/2024 2:15 PM EDT Nurse Visit General Surgery [address] [place] [address] Wstr, Nurse Gens [facility] [address] [place] [address] 3 wk suture removal General Surgery Comment on above: 3 wk suture removal Start: 01-05-2024 Complete blood count Hemoglobin/Hematocrit [facility] Start: 01-05-2024 HEMOGLOBIN/HEMATOCRIT HEMOGLOBIN/HEMATOCRIT [facility] Start: 01-05-2024 SERUM CREATININE SERUM CREATININE [facility] Start: 10-31-2023 ANNUAL PCP TEAM CHRONIC DISEASE VISIT ANNUAL PCP TEAM CHRONIC DISEASE VISIT [facility] Start: 10-31-2023 BP CONTROLLED (<130/80) BP CONTROLLED (<130/80) [facility] Start: 10-31-2023 Hepatitis B surface antibody level LDL CHOLESTEROL [facility] Start: 08-27-2023 Advance Directive Discussion Advance Directive Discussion [facility] Start: 08-27-2023 Behavioral Health Screening Behavioral Health Screening [facility] Start: 08-27-2023 Depression Assessment Depression Assessment [facility] Start: 07-31-2023 ANNUAL PCP TEAM CHRONIC DISEASE VISIT ANNUAL PCP TEAM CHRONIC DISEASE VISIT [facility] Start: 07-06-2023 Hepatitis C antibody, confirmatory test DILATED RETINAL EXAM [facility] Start: 06-05-2023 ANNUAL PCP TEAM CHRONIC DISEASE VISIT ANNUAL PCP TEAM CHRONIC DISEASE VISIT [facility] Start: 06-05-2023 HEMOGLOBIN/HEMATOCRIT HEMOGLOBIN/HEMATOCRIT [facility] Start: 05-08-2023 HEMOGLOBIN/HEMATOCRIT HEMOGLOBIN/HEMATOCRIT [facility] Start: 05-06-2023 SERUM CREATININE SERUM CREATININE [facility] Start: 05-02-2023 Hemoglobin A1c measurement HbA1C [facility] Start: 05-02-2023 Hemoglobin A1c/Hemoglobin.total in Blood HBA1C [facility] Start: 04-27-2023 Covid-19 Vaccine () Covid-19 Vaccine () [facility] Start: 04-27-2023 Covid-19 Vaccine () Covid-19 Vaccine () [facility] Start: 04-27-2023 Influenza vaccination Influenza Vaccine (#1) [facility] Start: 04-10-2023 Hepatitis B surface antibody level LDL CHOLESTEROL [facility] Start: 03-13-2023 3 comp foot exam completed DIABETIC FOOT EXAM [facility] Start: 03-13-2023 Diabetic foot examination Diabetic Foot Exam [facility] Start: 12-02-2022 ANNUAL PCP TEAM CHRONIC DISEASE VISIT ANNUAL PCP TEAM CHRONIC DISEASE VISIT [facility] Start: 12-02-2022 BP CONTROLLED (<130/80) BP CONTROLLED (<130/80) [facility] Start: 11-25-2022 3 comp foot exam completed DIABETIC FOOT EXAM [facility] Start: 2022 ADVANCE DIRECTIVE DISCUSSION ADVANCE DIRECTIVE DISCUSSION [facility] Start: 10-30-2022 End: 12-30-2022 Hemoglobin A1c in Blood [facility] Work Phone: Comment on above: Expected: 10/30/2022, Expires: 3 Start: 10-30-2022 End: 12-30-2022 LIPID PANEL, NONFASTING [facility] Work Phone: Comment on above: Expected: 10/30/2022, Expires: 3 Start: 10-11-2022 Hemoglobin A1c/Hemoglobin.total in Blood HBA1C [facility] Start: 06-05-2022 End: 08-05-2022 CBC W Auto Differential panel - Blood [facility] Work Phone: Comment on above: Expected: 06/05/2022, Expires: 2 Start: 04-27-2022 Influenza vaccination [facility] Start: 03-30-2022 End: 05-30-2022 ALBUMIN/CREAT RATIO RND UR ALBUMIN/CREAT RATIO RND UR Lab Routine Hypertension, essential Type 2 diabetes mellitus without complication, with long-term current use of insulin (HCC) Expected: 03/30/2022, Expires: 05/30/2022 [facility] Work Phone: Comment on above: Expected: 03/30/2022, Expires: 2 Start: 03-30-2022 End: 03-30-2023 CBC W Auto Differential panel - Blood CBC + DIFF Lab Routine Hypertension, essential Type 2 diabetes mellitus without complication, with long-term current use of insulin (HCC) Expected: 03/30/2022, Expires: 03/30/2023 [facility] Work Phone: Comment on above: Expected: 03/30/2022, Expires: 3 Start: 03-30-2022 End: 03-30-2023 Comprehensive metabolic 2000 panel - Serum or Plasma COMP METABOLIC PANEL Lab Routine Hypertension, essential Type 2 diabetes mellitus without complication, with long-term current use of insulin (HCC) Expected: 03/30/2022, Expires: 03/30/2023 [facility] Work Phone: Comment on above: Expected: 03/30/2022, Expires: 3 Start: 03-30-2022 End: 05-30-2022 Hemoglobin A1c in Blood HGB A1C Lab Routine Hypertension, essential Type 2 diabetes mellitus without complication, with long-term current use of insulin (HCC) Expected: 03/30/2022, Expires: 05/30/2022 [facility] Work Phone: Comment on above: Expected: 03/30/2022, Expires: 2 Start: 03-30-2022 End: 03-30-2023 Lipid 1996 panel - Serum or Plasma LIPID PANEL BASIC Lab Routine Hypertension, essential Type 2 diabetes mellitus without complication, with long-term current use of insulin (HCC) Expected: 03/30/2022, Expires: 03/30/2023 [facility] Work Phone: Comment on above: Expected: 03/30/2022, Expires: 3 Start: 03-01-2022 PROSTATE CANCER SCREENING DISCUSSION PROSTATE CANCER SCREENING DISCUSSION [facility] Start: 02-21-2022 HEMOGLOBIN/HEMATOCRIT HEMOGLOBIN/HEMATOCRIT [facility] Start: 12-02-2021 End: 02-01-2022 Hemoglobin A1c/Hemoglobin.total in Blood HGB A1C Lab Routine 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 due to underlying condition, unspecified proliferative retinopathy type (HCC) Expected: 12/02/2021, Expires: 02/01/2022 [facility] Work Phone: Comment on above: Expected: 12/02/2021, Expires: 2 Start: 12-02-2021 End: 02-01-2022 LIPID PANEL BASIC LIPID PANEL BASIC Lab Routine Arteriosclerotic heart disease (ASHD) Expected: 12/02/2021, Expires: 02/01/2022 [facility] Work Phone: Comment on above: Expected: 12/02/2021, Expires: 2 Start: 11-14-2021 End: 01-14-2022 ALBUMIN/CREAT RATIO RND UR ALBUMIN/CREAT RATIO RND UR Lab Routine Hypertension, essential Chronic kidney disease, stage IV (severe) (HCC) Type 2 diabetes mellitus without complication, with long-term current use of insulin (HCC) Expected: 11/14/2021, Expires: 01/14/2022 [facility] Work Phone: Comment on above: Expected: 11/14/2021, Expires: 2 Start: 11-14-2021 End: 01-14-2022 CBC W Auto Differential panel - Blood CBC + DIFF Lab Routine Hypertension, essential Chronic kidney disease, stage IV (severe) (HCC) Type 2 diabetes mellitus without complication, with long-term current use of insulin (HCC) Expected: 11/14/2021, Expires: 01/14/2022 [facility] Work Phone: Comment on above: Expected: 11/14/2021, Expires: 2 Start: 11-14-2021 End: 01-14-2022 Comprehensive metabolic 2000 panel - Serum or Plasma COMP METABOLIC PANEL Lab Routine Hypertension, essential Chronic kidney disease, stage IV (severe) (HCC) Type 2 diabetes mellitus without complication, with long-term current use of insulin (HCC) Expected: 11/14/2021, Expires: 01/14/2022 [facility] Work Phone: Comment on above: Expected: 11/14/2021, Expires: 2 Start: 11-14-2021 End: 01-14-2022 Hemoglobin A1c/Hemoglobin.total in Blood HGB A1C Lab Routine Hypertension, essential Chronic kidney disease, stage IV (severe) (HCC) Type 2 diabetes mellitus without complication, with long-term current use of insulin (HCC) Expected: 11/14/2021, Expires: 01/14/2022 [facility] Work Phone: Comment on above: Expected: 11/14/2021, Expires: 2 Start: 11-14-2021 End: 01-14-2022 LIPID PANEL BASIC LIPID PANEL BASIC Lab Routine Hypertension, essential Chronic kidney disease, stage IV (severe) (HCC) Type 2 diabetes mellitus without complication, with long-term current use of insulin (HCC) Expected: 11/14/2021, Expires: 01/14/2022 [facility] Work Phone: Comment on above: Expected: 11/14/2021, Expires: 2 Start: 2021 Potassium monitoring [facility] Work Phone: Start: 11-03-2021 Creatinine measurement [facility] Work Phone: Start: 11-03-2021 Potassium monitoring [facility] Work Phone: Start: 10-11-2021 ANNUAL PCP TEAM CHRONIC DISEASE VISIT ANNUAL PCP TEAM CHRONIC DISEASE VISIT [facility] Start: 10-08-2021 Adult depression screening assessment DEPRESSION SCREENING [facility] Start: 09-30-2021 COVID-19 VACCINE (4 - Booster for Moderna series) COVID-19 VACCINE (4 - Booster for Moderna series) [facility] Start: 08-27-2021 DEPRESSION ASSESSMENT DEPRESSION ASSESSMENT [facility] Start: 08-25-2021 COVID-19 VACCINE (4 - Booster for Moderna series) COVID-19 VACCINE (4 - Booster for Moderna series) [facility] Start: 08-25-2021 Covid-19 Vaccine (4 - Moderna risk series) Covid-19 Vaccine (4 - Moderna risk series) [facility] Start: 07-01-2021 Hepatitis C antibody, confirmatory test DILATED RETINAL EXAM [facility] Start: 06-01-2021 Hepatitis B surface antibody level LDL CHOLESTEROL [facility] Start: 06-01-2021 SERUM CREATININE SERUM CREATININE [facility] Start: 05-27-2021 3 comp foot exam completed DIABETIC FOOT EXAM [facility] Start: 04-27-2021 Influenza vaccination INFLUENZA (#1) [facility] Start: 03-14-2021 End: 03-14-2021 Patient encounter procedure 03/14/2021 Office Visit Vascular Surgery Nick Mancilla MD [address] [facility] [address] [place] [address] [phone] [facility] Start: 02-25-2021 End: 02-25-2021 Patient encounter procedure 02/25/2021 Appointment General Surgery Nick Mancilla MD [address] [facility] [address] [place] [address] [phone] [facility] General Surgery Start: 02-21-2021 Subsequent hospital visit by physician 02/21/2021 Hospital Encounter Pre-Admission Testing Nick Mancilla MD [address] [facility] [address] [place] [address] [facility] Pre-Admit Testing Start: 12-30-2020 COVID-19 VACCINE (3 - Moderna risk 4-dose series) COVID-19 VACCINE (3 - Moderna risk 4-dose series) [facility] Start: 12-02-2020 COVID-19 Vaccine (2 - Moderna 2-dose series) COVID-19 Vaccine (2 - Moderna 2-dose series) [facility] Work Phone: Start: 11-30-2020 Hemoglobin A1c/Hemoglobin.total in Blood HBA1C [facility] Start: 11-17-2020 End: 11-17-2020 Office Visit 11/17/2020 Office Visit Vascular Surgery Candice Tellez PA-C [address] [place], [place] [id number] [facility] Start: 2020 End: 2020 Appointment 2020 Appointment General Surgery Nick Mancilla MD [address] [place] [address] [phone] [facility] General Surgery Start: 02-22-2019 COLORECTAL CANCER SCREENING COLORECTAL CANCER SCREENING [facility] Start: 02-22-2019 FECAL OCCULT BLOOD FECAL OCCULT BLOOD [facility] Start: 02-22-2019 Screening for malignant neoplasm of colon [facility] Start: 2017 RSV Vaccine (1 - 1-dose 60+ series) RSV Vaccine (1 - 1-dose 60+ series) [facility] Start: 2017 RSV Vaccine (1 - Risk 60-74 years 1-dose series) RSV Vaccine (1 - Risk 60-74 years 1-dose series) [facility] Start: 08-17-2017 End: 08-17-2017 Appointment Appointment [facility] Work Phone: Start: 07-16-2017 End: 07-11-2017 *BMP *BMP [facility] Work Phone: Start: 07-11-2017 End: 04-20-2017 Echocardiography Echocardiogram (complete) [facility] Work Phone: Start: 07-04-2017 End: 07-05-2017 *BMP *BMP [facility] Work Phone: Start: 05-25-2017 End: 05-28-2017 Cardiac Rehab [facility] Work Phone: Start: 05-25-2017 End: 05-25-2017 Cardiovascular stress test using treadmill Treadmill stress test (no imaging) [facility] Work Phone: Start: 05-25-2017 End: 05-25-2017 Echocardiography Echocardiogram (complete) [facility] Work Phone: Start: 05-25-2017 End: 05-25-2017 Follow Up Appt 3 months Follow Up Appt 3 months [facility] Work Phone: Start: 05-25-2017 End: 05-25-2017 Follow Up Appt Other Follow Up Appt Other [facility] Work Phone: Start: 05-25-2017 End: 05-25-2017 MMM MMM [facility] Work Phone: Start: 11-06-2007 Prostate specific antigen measurement PROSTATE CANCER SCREENING DISCUSSION [facility] Start: 11-06-2007 Screening for malignant neoplasm of colon Colon cancer screen colonoscopy [facility] Work Phone: Start: 11-06-2007 Shingles Vaccine (1 of 2) Shingles Vaccine (1 of 2) [facility] Work Phone: Start: 11-06-2007 SHINGRIX VACCINE (1 of 2) SHINGRIX VACCINE (1 of 2) [facility] Start: 11-06-2007 Zoster vaccine hzv live for subcutaneous use ZOSTER (SHINGLES) VACCINE (1 of 2) [facility] Start: 2002 COLOGUARD (FIT-DNA) COLOGUARD (FIT-DNA) [facility] Start: 2002 Colonoscopy [facility] Start: [address] COLONOGRAPHY [facility] Start: 2002 Screening for malignant neoplasm of colon [facility] Start: 2002 SIGMOIDOSCOPY SIGMOIDOSCOPY [facility] Start: 1997 Fasting lipid profile LIPID SCREENING [facility] Start: 1976 ADULT PREVNAR-13 ADULT PREVNAR-13 [facility] Start: 1976 Hepatitis A Vaccine (1 of 2 - Risk 2-dose series) Hepatitis A Vaccine (1 of 2 - Risk 2-dose series) [facility] Start: 1976 HEPATITIS B (1 of 3 - Risk 3-dose series) HEPATITIS B (1 of 3 - Risk 3-dose series) [facility] Start: 1976 SHINGRIX VACCINE (1 of 2) SHINGRIX VACCINE (1 of 2) [facility] Start: 1976 Third diphtheria, tetanus and acellular pertussis (DTaP) vaccination TDAP (ADULT) [facility] Start: 1976 TWO PNEUMOVAX 5 YEARS APART PRIOR TO AGE 65 (#1) TWO PNEUMOVAX 5 YEARS APART PRIOR TO AGE 65 (#1) [facility] Start: 11-06-1975 Anxiety Screening Anxiety Screening [facility] Start: 11-06-1975 BP CONTROLLED (<130/80) BP CONTROLLED (<130/80) [facility] in Start: 11-06-1975 Depression Screening Depression Screening [facility] Start: 11-06-1975 HIV SCREENING HIV SCREENING [facility] Start: 11-06-1975 Tetanus vaccination TETANUS [facility] [...] (1 - PCV) PNEUMOCOCCAL (1 - PCV) [facility] Start: 11-06-1963 Pneumococcal 0-64 years Vaccine (1 [...] (1 of 2 - Risk 2-dose series) [facility] Start: 05-08-1958 COVID-19 VACCINE (#1) COVID-19 VACCINE (#1) [facility] Start: 1957 Hepatitis C antibody, confirmatory test HEPATITIS C VIRUS SCREENING [facility] Start: 1957 Hepatitis C screening Hepatitis C screen [facility] Work Phone: Bacteria identified in Body fluid by Culture BACTERIAL CULTURE AND GRAM STAIN, STERILE BODY FLUID Microbiology Routine Pain of right hip Status post right hip replacement Ordered: 11/21/2024 [facility] Comment on above: Ordered: 11/21/2024 End: 2020 Blood glucose - POCT Blood glucose - POCT Point of Care Testing Routine One Time for 1 Occurrences starting 2020 until 2020 [facility] Work Phone: Comment on above: One Time for 1 Occurrences starting 10/25 until 2020 C-PEPTIDE C-PEPTIDE Lab Ro utine Pre-transplant evaluation for kidney transplant 03/06/2022 1:13 PM EDT [facility] CDIFF PCR W/RFLX EIA IF POSITIVE CDIFF PCR W/RFLX EIA IF POSITIVE Lab Routine Diarrhea of infectious origin Ordered: 06/29/2022 [facility] Work Phone: Comment on above: Ordered: 06/29/2022 CMV IGG AB CMV IGG AB Lab R outine Pre-transplant evaluation for kidney [facility] 03/06/2022 1:13 PM [facility] COL[facility]UARD COLOGUARD Lab Ro utine Screening for colon cancer Ordered: 10/30/2022 [facility] Work Phone: Comment on above: Ordered: 10/30/2022 EBV VCA IGG AB EBV VCA IGG AB L ab Routine Pre-transplant evaluation for kidney transplant 03/06/2022 1:13 PM EDT [facility] EKG 12 Lead EKG 12 Lead ECG Routine 11/03/2020 1:27 PM EST [facility] Work Phone: End: 12-21-2025 Guidance for arthrocentesis of Major joint IMAGING GUIDED HIP ASPIRATION RIGHT Radiology Routine Pain of right hip Status post right hip replacement 1 Occurrences starting 11/21/2024 until 12/21/2025 [facility] Comment on above: 1 Occurrences starting 11/21/2024 until 12/21/2025 HLA TYPING (SOLID ORGAN) HLA TYP ING (SOLID ORGAN) Lab Routine Pre-transplant evaluation for kidney transplant 03/06/2022 1:13 PM EDT [facility] HSV 1 AND 2 IGG ANTIBODY HSV 1 A ND 2 IGG ANTIBODY Lab Routine Pre-transplant evaluation for kidney transplant 03/06/2022 1:13 PM EDT [facility] HSV IGM ANTIBODY HSV IGM ANTIBOD Y Lab Routine Pre-transplant evaluation for kidney transplant 03/06/2022 1:13 PM EDT [facility] NM Bone 3 Phase Views NM BONE 3 PHASE Radiology Routine Pain of right hip 11/26/2024 2:14 PM EDT [facility] Work Phone: Oxygen therapy [[facility] [place] Initiate Oxygen Therapy Protocol Respiratory Care Routine Daily until discontinued starting 2020 [facility] Work Phone: Comment on above: Daily until discontinued starting 2020 Patient Education [facility] Work Phone: Patient referral [facility] Work Phone: Phase I & II - meter ed glucose Phase I & II - metered glucose Point of Care Testing Routine As Needed until discontinued starting 2020 [facility] Work Phone: Comment on above: As Needed until discontinued starting PRA CLASS (PRE-TRANSPLANT) PRA CLASS (PRE-TRANSPLANT) Lab Routine Pre-transplant evaluation for kidney transplant 03/06/2022 1:13 PM EDT [facility] Respiratory pathogen s DNA and RNA panel - Respiratory specimen by AMADOU with probe detection [facility] Spirometry panel Incentive barber metry Respiratory Care Routine Q1H PRN until discontinued starting 2020 [facility] Work Phone: Comment on above: Q1H PRN until discontinued starting 10/25 SURGICAL PATHOLOGY SURGICAL PATH OLOGY Lab Routine Skin lesion of right lower extremity 12/28/2023 3:09 PM EDT [facility] Work Phone: SYNOVIAL FLUID, ROUTINE SYNOVIAL FLUID, ROUTINE Lab Routine Pain of right hip Status post right hip replacement Ordered: 11/21/2024 [facility] Work Phone: Comment on above: Ordered: 11/21/2024 VARICELLA IGG AB (IM M STATUS) VARICELLA IGG AB (IMM STATUS) Lab Routine Pre-transplant evaluation for kidney transplant 03/06/2022 1:13 PM EDT [facility] XR Ankle - right AP and Lateral and oblique XR ANKLE GENERAL 3V AP/LAT/OBL RIGHT Radiology Routine Acute right ankle pain 05/07/2024 1:33 PM EDT [facility] Work Phone: XR Ankle - right AP and Lateral and oblique XR ANKLE GENERAL 3V AP/LAT/OBL RIGHT Radiology Routine Pain 06/25/2024 11:26 AM EDT [facility] Work Phone: End: 09-27-2025 XR Femur - right AP and Lateral XR FEMUR GENERAL 2V AP/LAT RIGHT Radiology Routine Acute pain of right knee Right thigh pain 1 Occurrences starting 08/28/2024 until 09/27/2025 [facility] Comment on above: 1 Occurrences starting 08/28/2024 until 09/27/2025 XR Femur - right AP and Lateral XR FEMUR GENERAL 2V AP/LAT RIGHT Radiology Routine Acute pain of right knee Right thigh pain 09/22/2024 1:56 PM EST [facility] End: 12-12-2025 XR Femur - right AP and Lateral XR FEMUR GENERAL 2V AP/LAT RIGHT Radiology Routine Status post total replacement of right hip 1 Occurrences starting 11/12/2024 until 12/12/2025 [facility] Work Phone: Comment on above: 1 Occurrences starting 11/12/2024 until 12/12/2025 XR Femur - right AP and Lateral XR FEMUR GENERAL 2V AP/LAT RIGHT Radiology Routine Status post total replacement of right hip 11/14/2024 9:46 AM EDT [facility] Work Phone: End: 09-27-2025 XR Pelvis AP XR PELVIS 1V AP Radiology Routine Pain in right hip 1 Occurrences starting 08/28/2024 until 09/27/2025 [facility] Work Phone: Comment on above: 1 Occurrences starting 08/28/2024 until 09/27/2025 XR Pelvis AP XR PELVIS 1V AP Radiology Routine Pain in right hip 09/22/2024 1:56 PM EST [facility] Work Phone: XR Tibia and Fibula - right AP and Lateral XR TIBIA FIBULA 2V AP/LAT RIGHT Radiology Routine 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 11/08/2023 3:15 PM EDT [facility] Work Phone: [facility] Immunizations Immunization Date Immunization Notes Care Provider Sejal monaejefe 06-07-2024 Seasonal, trivalent, recombinant, injectable influenza vaccine, preservative free Alexus Suppan [employer]IST.ANGIOGRAPHER Work Phone: [facility] 06-19-2023 influenza virus vaccine, unspecified formulation Nupur De La Rosa MD Work Phone: [facility] 02-06-2023 Hepatitis B vaccine (recombinant), CpG adjuvanted Alexus Suppan LIQUIFIED NAT[employer] G[employer] SPECIALIST.ANGIOGRAPHER Work Phone: [facility] 12-05-2022 Hepatitis B vaccine (recombinant), CpG adjuvanted Alexus Suppan LIQUIFIED NATURAL GAS SPECIALIST.ANGIOGRAPHER Work Phone: [facility] 11-08-2022 Hepatitis B vaccine (recombinant), CpG adjuvanted Alexus Suppan LIQUIFIED NATURAL GAS SPECIALIST.ANGIOGRAPHER Work Phone: [facility] 10-10-2022 Hepatitis B vaccine (recombinant), CpG adjuvanted Alexus Suppan LIQUIFIED NATURAL GAS SPECIALIST.ANGIOGRAPHER Work Phone: [facility] 07-31-2022 pneumococcal (PCV20) vaccine, 20 valent (PREVNAR 20) Rigoberto Gould MD Work Phone: [facility] 07-31-2022 pneumococcal Conjugate, unspecified formulation Rigoberto Gould MD Work Phone: [facility] Work Phone: 07-15-2022 COVID-19 vaccine, ag e 12+ yr, bivalent (PFIZER-BIONTECH) Alexus Suppan LIQUIFIED NAT[employer] G[employer] SPECIALIST.ANGIOGRAPHER Work Phone: [facility] 06-17-2022 influenza, injectabl e, quadrivalent, preservative free Rigoberto Gould MD Work Phone: [facility] 06-17-2022 influenza virus vaccine, unspecified formulation Robinson Henao MD Work Phone: [facility] 11-04-2021 Covid (Moderna) Dr. Rigoberto Gould MD Work Phone: [facility] 05-24-2021 influenza, injectabl e, quadrivalent, preservative free Rigoberto Gould MD Work Phone: [facility] 05-24-2021 influenza virus vaccine, unspecified formulation Samra Smith MD Work Phone: [facility] 05-10-2021 Hepatitis B vaccine (recombinant), CpG adjuvanted Rigoberto Gould MD Work Phone: [facility] 03-08-2021 Hepatitis B vaccine (recombinant), CpG adjuvanted Rigoberto Gould MD Work Phone: [facility] 02-08-2021 Hepatitis B vaccine (recombinant), CpG adjuvanted Rigoberto Gould MD Work Phone: [facility] 01-06-2021 Hepatitis B vaccine (recombinant), CpG adjuvanted Rigoberto Gould MD Work Phone: [facility] 12-02-2020 Covid (Moderna) Dr. Rigoberto Gould MD Work Phone: [facility] 11-04-2020 Covid (Moderna) Dr. Rigoberto Gould MD Work Phone: [facility] 10-01-2020 influenza, injectabl e, quadrivalent, contains preservative Nick Mancilla [facility] Work Phone: 10-01-2020 influenza, injectabl e, quadrivalent, preservative free Dr. Rigoberto Gould MD Work Phone: [facility] 10-01-2020 influenza, seasonal, injectable, preservative free Rigoberto Gould MD Work Phone: [facility] Work Phone: 08-29-2018 influenza, seasonal, injectable, preservative free Rigoberto Gould MD Work Phone: [facility] 07-11-2018 influenza nasal, unspecified formulation Rigoberto Gould MD Work Phone: [facility] Work Phone: 07-11-2018 influenza virus vaccine, unspecified formulation Nick ARROYO Work Phone: 07-11-2018 influenza, injectabl e, quadrivalent, contains preservative Nick Mancilla [facility] Work Phone: 07-11-2018 influenza, injectabl e, quadrivalent, preservative free Dr. Rigoberto Gould MD Work Phone: [facility] 05-19-2018 tetanus toxoid, reduced diphtheria toxoid, and acellular pertussis vaccine, adsorbed Nick Mancilla [facility] Work Phone: 05-30-2016 influenza nasal, unspecified formulation Rigoberto Gould MD Work Phone: [facility] [facility] Work Phone: 05-30-2016 influenza virus vaccine, unspecified formulation Nick ARROYO Work Phone: 05-30-2016 influenza, injectabl e, quadrivalent, contains preservative Rigoberto Gould MD Work Phone: [facility] 06-19-2015 influenza nasal, unspecified formulation Rigoberto Gould MD Work Phone: [facility] 06-19-2015 influenza virus vaccine, unspecified formulation Nick ARROYO Work Phone: 06-19-2015 influenza, injectabl e, quadrivalent, contains preservative Nick Mancilla [facility] Work Phone: 06-19-2015 influenza, injectabl e, quadrivalent, preservative free Dr. Rigoberto Gould MD Work Phone: [facility] 06-19-2015 influenza, seasonal, injectable, preservative free Rigoberto Gould MD Work Phone: [facility] Work Phone: Payers Date Payer Category Payer Medicare (Managed Care) ELISSA BANDA ADVANTAGE HMO [id number] 2024 Unknown ANTHEM BLUE CROS S AND BLUE SHIELD [employer]M MEDICARE ADVANTAGE HMO [id number] 2024-Present [phone] [address] [place] [address] HMO [id number] 2024 Unknown [id number] 2021 Medicaid [id number]. [id number]. [id number] 2021 Medicare [id number]. [id number] 2021 Medicare [id number]. 1.13.172.2. [id number] 2021 Medicare [id number] 2020 Medicaid [id number]. [id number] 2017 Self-pay 2017 Unknown [id number] 2017 Unknown [id number] 2010 Unknown [id number] 1957 Unknown [id number] 2.16.840.1.761451.3.579.2. 594 1957 Unknown [id number] 2.16.840.1.474118.3.579.2. 627 1957 Unknown [id number] 2.16.840.1.115212.3.579.2. 627 1920 Unknown [id number] 2.16.840.1.187930.3.579.2. 627 Unknown [id number] 2.16.840.1.527213.3.579.2. 273 Unknown [id number] 2.16.840.1.430795.3.579.2. 273 Unknown [id number] 2.16.840.1.089348.3.579.2. 273 Unknown [id number] 2.16.840.1.222086.3.579.2. 273 Unknown [id number] 2.16.840.1.539655.3.579.2. 273 Unknown [id number] 2.16.840.1.218695.3.579.2. 273 Unknown [id number] 2.16.840.1.367076.3.579.2. 273 Unknown [id number] 2.16.840.1.526786.3.579.2. 273 Unknown [id number] 2.16.840.1.868246.3.579.2. 273 Unknown [id number] 2.16.840.1.391662.3.579.2. 273 Unknown [id number] 2.16.840.1.801649.3.579.2. 273 Unknown [id number] 2.16.840.1.877596.3.579.2. 462 Unknown [id number] 2.16.840.1.800250.3.579.2. 462 Unknown [id number] 2.16.840.1.727036.3.579.2. 462 Unknown [id number] 2.16.840.1.784721.3.579.2. 462 Unknown [id number] 2.16.840.1.445588.3.579.2. 462 Unknown [id number] 2.16.840.1.982427.3.579.2. 462 Unknown [id number] 2.16.840.1.207174.3.579.2. 462 Unknown [id number] 2.16.840.1.015118.3.579.2. 462 Unknown [id number] 2.16.840.1.059003.3.579.2. 462 Unknown [id number] 2.16.840.1.186548.3.579.2. 462 Unknown [id number] 2.16.840.1.633012.3.579.2. 462 Unknown [id number] 2.16.840.1.756264.3.579.2. 462 Unknown [id number] 2.16.840.1.180264.3.579.2. 462 Unknown [id number] 2.16.840.1.607974.3.579.2. 462 Unknown [id number] 2.16.840.1.738161.3.579.2. 462 Social History Date Type Detail Facility Start: 11-03-2020 End: 06-05-2022 Tobacco smoking status NHIS Never smoker [facility] Work Phone: Start: 11-03-2020 End: 06-05-2022 Tobacco use and exposure Former user [facility] Phone: End: 04-17-2017 History of tobacco use Chews Tobacco [facility] Phone: Start: 11-03-2020 End: 01-12-2021 Alcohol intake Ex-drinker (finding) [facility] Phone: Start: 1955 Sex Assigned At Not on file [facility] Phone: Start: 11-22-2021 End: 07-31-2022 Exposure to SARS-CoV-2 (event) Not sure [facility] Phone: Start: 04-18-2021 End: 01-08-2025 Alcohol intake Current non-drinker of alcohol (finding) [facility] Start: 10-08-2020 History SDOH Alcohol Std Drinks 98 [facility] Start: 03-28-2017 History SDOH Alcohol Comment seldom [facility] Start: 10-08-2020 End: 11-30-2021 History SDOH Social Connections Living 3 [facility] Start: 10-08-2020 End: 11-30-2021 History SDOH Physical Activity DPW 0 [facility] Start: 10-08-2020 End: 01-02-2023 History SDOH Stress 1 [facility] Start: 10-08-2020 End: 01-02-2023 History SDOH Housing Homeless Last Year 2 [facility] Start: 04-18-2021 Education 12 [facility] Start: 1955 Sex Assigned At Male [facility] Start: 11-30-2021 End: 01-02-2023 History SDOH Financial 5 [facility] Tobacco smoking stat us NHIS Tobacco smoking consumption unknown [facility] Start: 11-30-2021 End: 09-20-2022 History of Social function [facility] Start: 11-30-2021 End: 09-20-2022 Social connection and isolation panel [facility] Do you belong to any clubs or organizations such as anglican groups, unions, fraternal or athletic groups, or school groups? No [facility] Are you now , , , , never or living with a partner? [facility] How often to you hav e a drink containing alcohol? Never [facility] Average Number of Drinks Not on file [facility] Work Phone: Do you feel stress - tense, restless, nervous, or anxious, or unable to sleep at night because your mind is troubled all the time - these days [OSQ] Not at all [facility] (I/We) worried evelyne er (my/our) food would run out before (I/we) got money to buy more. Never true [facility] Work Phone: Start: 04-07-2021 Gender identity Identifies as male gender (finding) [facility] Start: 04-07-2021 Sexual orientation Heterosexual (finding) [facility] Start: 12-11-2024 End: 01-06-2025 Tobacco smoking status NHIS Ex-smoker (finding) [facility] Start: 09-29-2020 None None [facility] Start: 09-29-2020 Spouse/ Significant Other Spouse/ Significant Other [facility] Start: 10-03-2020 Non-smoker Non-smoker [facility] Start: 12-11-2024 End: 12-13-2024 Sex Male (finding) [facility] Medical Equipment Procedure Code Equipment Code Equipment Origin al Text Equipment Identifier Dates Insertion, catheter, hemodialysis CATHETER, CVD PLNDRME 19CM FDA Start: 09-30-2020 Insertion, catheter, hemodialysis CATHETER, CVD PLNDRME 19CM FDA Start: 09-30-2020 Insertion, catheter, hemodialysis FDA Start: 09-30-2020 Wcn-Ho-N-Kind Implant - [id number] Start: 04-28-2022 Cement Simplex P Tobramycin Bone Full Dose Radiopaque Preblend Sterile - [id number] Start: 01-01-2023 T2 Femoral Nail Retrograde Strl 10mm X 200mm [id number] Start: 01-01-2023 Advanced Locking Screw 5mm X 35mm Sterile [id number] Start: 01-01-2023 Cement Simplex P Tobramycin Bone Full Dose Radiopaque Preblend Sterile - [id number] Start: 01-01-2023 Vhd-Al-S-Kind Implant - [id number] Start: 04-28-2022 Tfq-Zk-F-Kind Implant - [id number] Start: 04-28-2022 Dnf-Xk-K-Kind Implant - [id number] Start: 04-28-2022 Juh-Cf-R-Kind Implant - [id number] Start: 04-28-2022 Jcp-Fd-N-Kind Implant - [id number] Start: 04-28-2022 Mgm-Ob-A-Kind Implant - [id number] Start: 04-28-2022 Prn-Cp-W-Kind Implant - [id number] Start: 04-28-2022 Lnr-Ns-S-Kind Implant - [id number] Start: 04-28-2022 Juo-Ud-W-Kind Implant - [id number] Start: 04-28-2022 Din-Is-K-Kind Implant - [id number] Start: 04-28-2022 Advanced Locking Screw 5mm X 55mm Sterile [id number] Start: 01-01-2023 Advanced Locking Screw 5mm X 80mm Sterile [id number] Start: 01-01-2023 Advanced Locking Screw 5mm X 35mm Sterile [id number] Start: 01-01-2023 T2 Alpha Locking Screw 5mm X 75mm [id number] Start: 01-01-2023 Use one needle f or each dose. once/day. [id number] Start: 06-30-2024 Goals Date Patient Goal Desired Activity /State Functional Status Date Assessment Result Facility 01-16-2025 Are you deaf, or do you have serious difficulty hearing Yes 01/16/2025 10:20 AM Libby Marie RN Yes [facility] 01-16-2025 Are you blind, or do you have serious difficulty seeing, even when wearing glasses No 01/16/2025 10:20 AM Libby Marie RN No [facility] 01-16-2025 Do you have serious difficulty walking or climbing stairs Yes 01/16/2025 10:20 AM Libby Marie RN Yes [facility] 01-16-2025 Do you have difficul ty dressing or bathing Yes 01/16/2025 10:20 AM Libby Marie RN Yes [facility] 01-16-2025 Because of a physica l, mental, or emotional condition, do you have difficulty doing errands alone such as visiting a physician's office or shopping Yes 01/16/2025 10:20 AM Libby Marie RN Yes [facility] 12-13-2024 Functional status [facility] Work Phone: 05-08-2022 Are you deaf, or do you have serious difficulty hearing Yes 05/08/2022 11:30 AM Avelina Gan RN Yes [facility] 05-08-2022 Are you blind, or do you have serious difficulty seeing, even when wearing glasses No 05/08/2022 11:30 AM Avelina Gan, RN No [facility] 05-08-2022 Do you have serious difficulty walking or climbing stairs Yes 05/08/2022 11:30 AM EDT Avelina Collins, RN Yes [facility] 05-08-2022 Do you have difficul ty dressing or bathing Yes 05/08/2022 11:30 AM EDT Avelina Collins, RN Yes [facility] 05-08-2022 Because of a physica l, mental, or emotional condition, do you have difficulty doing errands alone such as visiting a physician's office or shopping Yes 05/08/2022 11:30 AM EDT Avelina Collins, RN Yes [facility] Mental Status Date Assessment Result Facility 01-16-2025 Because of a physica l, mental, or emotional condition, do you have serious difficulty concentrating, remembering, or making decisions Yes 01/16/2025 10:20 AM EDT Libby Rodas, BISMARK Yes [facility] 12-13-2024 Cognitive function Voice/Name [facility] Work Phone: 05-08-2022 Because of a physica l, mental, or emotional condition, do you have serious difficulty concentrating, remembering, or making decisions No 05/08/2022 11:30 AM EDT Avelina Collins RN No [facility] Clinical Notes 04-08-2019 to 01-22-2025 Telephone Encounter - Lissette Sanabria RN - 01/22/2025 9:09 AM EDTTelephone Encounter - Lissette Sanabria RN - 01/22/2025 9:09 AM EDTTelephone Encounter - Rebecca Moe LPN - 01/09/2025 9:25 AM EDT Note Date & Type Note Facility 01-22-2025 Telephone encounter Note Vandana WEINBERG calling from [employer] calling ([phone]) to clarify if the cath once weekly on was a legitimate order. After reviewing discharge summary from inpatient stay it is a valid order. Milton 5/325 1 tablet before transport to dialysis, before physical therapy, and for his weekly urinary catheterization on urinary catheterization because of recurrent UTIs to be done weekly on THURSDAYS She is aware that it is the correct order. Verbalizes understanding. [facility] 01-22-2025 Miscellaneous Notes Vandana WEINBERG calling from [employer] calling ([phone]) to clarify if the cath once weekly on was a legitimate order. After reviewing discharge summary from inpatient stay it is a valid order. Milton 5/325 1 tablet before transport to dialysis, before physical therapy, and for his weekly urinary catheterization on urinary catheterization because of recurrent UTIs to be done weekly on THURSDAYS She is aware that it is the correct order. Verbalizes understanding. documented in this encounter [facility] 01-16-2025 Note HNO ID: [id number] Author: IVETT BENITEZ RN Service: Care Management Author Type: Registered Nurse Type: Care Mgt Progress Note Filed: 01/16/2025 09:22 Note Text: CARE MANAGEMENT DISCHARGE NOTE SERVICE DATE: January 16, 2025 SERVICE TIME: 9:19 AM Admission Date: 01/07/2025 LOS: 3 days Discharge Arrangement Discharge Arrangement: Jail Facility Was an expedited discharge program used?: No Services Arranged Medical Services: Other: See Comment Provider Name: Fabian Hazel Caregiver Assessment Caregiver is ready, willing and able to meet the patient's needs as recommended by the inter-professional team: Yes Name of Caregiver: Fabian Delvalle Yasemin Transportation Arrangements Transportation Arrangements: Ambulance Transportation Agency and Phone #:: [facility] [phone] Date of Trip: 01/16/25 Time of Trip: 1100 Type of Service: BLS Non-emergency Is Patient Medicaid Pending?: No Was transportation financial coverage discussed with family?: 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 [facility] accepted and precert has been obtained. Patient and are agreeable to discharge plan and deny needs. Ambulance transport scheduled for 11 AM garbage pick up man. Bedside nurse updated. SOC sent to PCP and SNF. Discharge orders sent to [facility] via transitions. Envelope on chart with number to call report. SIGNATURE: Ivett Benitez RN PATIENT NAME: Mauri Quinones DATE: January 16, 2025 TIME: 9:19 AM [facility] 01-15-2025 Note HNO ID: [id number] Author: IVETT BENITEZ, BISMARK Service: Care Management [...] up transport for 11AM tomorrow. Referral to [facility] updated. Transport confirmed for 11AM garbage pick up man. Patient and updated. SIGNATURE: Ivett Benitez RN PATIENT NAME: Mauri Quinones DATE: January 15, 2025 TIME: 4:43 PM [facility] 01-15-2025 Note HNO ID: [id number] Author: CECY OSBORNE RN Service: Dialysis Author [...] Report given to primary RN, Libby Rodas [facility] 01-15-2025 Note HNO ID: [id number] Author: MACEY VILLALBA APRN.CNP Service: Wound/Ostomy Author [...] wound care needs arise. SIGNATURE: Macey Villalba APRN.ANGIOGRAPHER PATIENT NAME: Mauri Quinones DATE: January 15, 2025 TIME: 11:48 AM [facility] 01-15-2025 Note HNO ID: [id number] Author: EVARISTO DAS MD Service: Hospital Medicine Author Type: Physician Type: Progress Notes Filed: 01/15/2025 15:06 Note Text: DEPARTMENT OF HOSPITAL MEDICINE PROGRESS NOTE SERVICE DATE: 01/15/2025 SERVICE TIME: 10:51 AM Hospital Medicine/Primary Attending: Evaristo Das MD NIGHT AND WEEKEND COVERAGE: ARBYRD COVERAGE: Nights: [phone], please page [facility] Night coverage pager [phone]. Probable discharge: 01/12 Disposition: [facility] facility Consultants: Dr. Saucedo for orthopedics Dr. [...] presents with fall and left hip pain. Milton 5/325 1 tablet before transport to dialysis, [...] Closed fracture of left superior pubic ramus ([facility]) Pain control Recently wheelchair bound at home per Ortho with conservative management Pre-CERT expires Sunday Chronic combined systolic and diastolic CHF (congestive heart failure) ([facility]) History of coronary artery bypass graft Chronic atrial fibrillation ([facility]) on Eliquis Continue midodrine, bumex, atorvastatin Next dialysis Recent urinary retention with butler that was removed out-patient Monitor urine output Yest residual <50ml Straight cath weekly 1 Milton ESRD (end stage renal disease) on dialysis ([facility]) Hyperkalemia T Sun schedule Type 2 diabetes mellitus without complication, with long-term current use of insulin ([facility]) Lantus 10 units on admission BS on lower side will decrease lantus to 6 units Monitor sugars Goal for glucose 100-180-at goal Patient Active Hospital Problem List: Sacral fracture (HCC) Date Noted: 01/07/2025 Closed fracture of left superior pubic ramus ([facility]) Date Noted: 01/07/2025 ESRD (end stage renal disease) on dialysis ([facility]) Date Noted: 06/05/2022 Chronic combined systolic and diastolic CHF (congestive heart failure) ([facility]) Date Noted: 03/24/2019 History of coronary artery bypass graft Date Noted: 04/18/2019 Chronic atrial fibrillation ([facility]) Date Noted: 01/07/2025 Type 2 diabetes mellitus without complication, with long-term current use of insulin ([facility]) Date Noted: 03/21/2016 History of recurrent UTIs [...] treated conservatively and he will go to group home facility for rehab. Dr. Loredo consulted for dialysis. Active Hospital Problems as of 01/15/2025 Noted - Resolved [facility] [place] * (Principal) Sacral fracture ([facility]) 01/07/2025 - Present Yes Closed fracture of left superior pubic ramus ([facility]) 01/07/2025 - Present Yes ESRD (end stage renal disease) on dialysis ([facility]) 06/05/2022 - Present Yes Overview Sees Dr. Jackson. Chronic combined systolic and diastolic CHF (congestive heart failure) ([facility]) 03/24/2019 - Present Yes History of coronary artery bypass graft 04/18/2019 - Present Yes Overview 04/10/17 CARTY to LAD, SVG to PDA, SVG to OM Chronic atrial fibrillation ([facility]) 01/07/2025 - Present Yes Type 2 diabetes mellitus without complication, with long-term current use of insulin ([facility]) (more content not included)... [facility] 01-14-2025 Note HNO ID: [id number] Author: EVARISTO DAS MD Service: Hospital Medicine Author Type: Physician Type: Progress Notes Filed: 01/14/2025 18:26 Note Text: DEPARTMENT OF HOSPITAL MEDICINE PROGRESS NOTE SERVICE DATE: 01/14/2025 SERVICE TIME: 6:23 PM Hospital Medicine/Primary Attending: Evaristo Das MD NIGHT AND WEEKEND COVERAGE: ARBYRD COVERAGE: Nights: [phone], please page [facility] Night coverage pager [phone]. Probable discharge: 01/12 Disposition: [facility] facility Consultants: Dr. Saucedo for orthopedics Dr. [...] Closed fracture of left superior pubic ramus ([facility]) Pain control Recently wheelchair bound at home per Ortho with conservative management Pre-CERT expires Sunday Chronic combined systolic and diastolic CHF (congestive heart failure) ([facility]) History of coronary artery bypass graft Chronic atrial fibrillation ([facility]) on Eliquis Continue midodrine, bumex, atorvastatin Next dialysis Recent urinary retention with butler that was removed out-patient Monitor urine output Yest residual <50ml Straight cath weekly ESRD (end stage renal disease) on dialysis ([facility]) Hyperkalemia Sun schedule Type 2 diabetes mellitus without complication, with long-term current use of insulin ([facility]) Lantus 10 units on admission BS on lower side will decrease lantus to 6 units Monitor sugars Goal for glucose 100-180-at goal Patient Active Hospital Problem List: Left hip pain Date Noted: 01/07/2025 Type 2 diabetes mellitus without complication, with long-term current use of insulin ([facility]) Date Noted: 03/21/2016 Chronic combined systolic and diastolic CHF (congestive heart failure) ([facility]) Date Noted: 03/24/2019 History of coronary artery bypass graft Date Noted: 04/18/2019 ESRD (end stage renal disease) on dialysis ([facility]) Date Noted: 06/05/2022 Sacral fracture ([facility]) Date Noted: 01/07/2025 Closed fracture of left superior pubic ramus ([facility]) Date Noted: 01/07/2025 Chronic atrial fibrillation ([facility]) Date Noted: 01/07/2025 Encephalopathy acute Date Noted: [...] treated conservatively and he will go to group home facility for rehab. Dr. Loredo consulted for dialysis. Active Hospital Problems as of 01/14/2025 Noted - Resolved [facility] [place] * (Principal) Left hip pain 01/07/2025 - Present Yes Type 2 diabetes mellitus without complication, with long-term current use of insulin ([facility]) 03/21/2016 - Present Yes Overview 09/04/17 glucose 233, BUN 25, creatinine 1.04, normal lytes Chronic combined systolic and diastolic CHF (congestive heart failure) ([facility]) 03/24/2019 - Present Yes History of coronary artery bypass graft 04/18/2019 - Present Yes Overview 04/10/17 CARTY to LAD, SVG to PDA, SVG to OM ESRD (end stage renal disease) on dialysis ([facility]) 06/05/2022 - Present Yes Overview Sees Dr. Jackson. Sacral fracture ([facility]) 01/07/2025 - Present Yes Closed fracture of left superior pubic ramus ([facility]) 01/07/2025 - Present Yes Chronic atrial fibrillation ([facility]) 01/07/2025 - Present Yes Encephalopathy acute 01/08/2025 [...] distention, Supple LUNGS: (more content not included)... [facility] 01-14-2025 Note HNO ID: [id number] Author: KAILYN CERDA RN Service: Care Management Author Type: Registered Nurse Type: Care Mgt Progress Note Filed: 01/14/2025 13:45 Note Text: CARE MANAGEMENT PROGRESS NOTE SERVICE DATE: 01/14/2025 SERVICE TIME: 1:41 PM LOS: 1 day Needs Prior to Discharge: To Be Determined EMR reviewed. Precert approved for [facility] through 01/19/25. [facility] [phone] updated that patient selected SNF in [place] and will continue HD in their center upon discharge. CM will follow. SIGNATURE: Kailyn Cerda RN PATIENT NAME: Mauri Quinones DATE: January 14, 2025 TIME: 1:41 PM [facility] 01-13-2025 Note HNO ID: [id number] Author: EVARISTO DAS MD Service: Hospital Medicine Author Type: Physician Type: Progress Notes Filed: 01/13/2025 21:04 Note Text: DEPARTMENT OF HOSPITAL MEDICINE PROGRESS NOTE SERVICE DATE: 01/13/2025 SERVICE TIME: 8:35 AM Hospital Medicine/Primary Attending: Evaristo Das MD NIGHT AND WEEKEND COVERAGE: ARBYRD COVERAGE: Nights: [phone], please page [facility] Night coverage pager [phone]. Probable discharge: 01/12 Disposition: [facility] facility Consultants: Dr. Saucedo for orthopedics Dr. [...] Closed fracture of left superior pubic ramus ([facility]) Pain control Recently wheelchair bound at home per Ortho with conservative management Need precert Chronic combined systolic and diastolic CHF (congestive heart failure) ([facility]) History of coronary artery bypass graft Chronic atrial fibrillation ([facility]) on Eliquis Continue midodrine, bumex, atorvastatin Next dialysis Sunday Recent urinary retention with butler that was removed out-patient Monitor urine output Yest residual <50ml Straight cath weekly ESRD (end stage renal disease) on dialysis ([facility]) Hyperkalemia T Sun schedule Type 2 diabetes mellitus without complication, with long-term current use of insulin ([facility]) Lantus 10 units on admission BS on lower side will decrease lantus to 6 units Monitor sugars Goal for glucose 100-180-at goal Patient Active Hospital Problem List: Left hip pain Date Noted: 01/07/2025 Type 2 diabetes mellitus without complication, with long-term current use of insulin ([facility]) Date Noted: 03/21/2016 Chronic combined systolic and diastolic CHF (congestive heart failure) ([facility]) Date Noted: 03/24/2019 History of coronary artery bypass graft Date Noted: 04/18/2019 ESRD (end stage renal disease) on dialysis ([facility]) Date Noted: 06/05/2022 Sacral fracture ([facility]) Date Noted: 01/07/2025 Closed fracture of left superior pubic ramus ([facility]) Date Noted: 01/07/2025 Chronic atrial fibrillation ([facility]) Date Noted: 01/07/2025 Encephalopathy acute Date Noted: [...] treated conservatively and he will go to group home facility for rehab. Dr. Loredo consulted for dialysis. Active Hospital Problems as of 01/13/2025 Noted - Resolved [facility] [place] * (Principal) Left hip pain 01/07/2025 - Present Yes Type 2 diabetes mellitus without complication, with long-term current use of insulin ([facility]) 03/21/2016 - Present Yes Overview 09/04/17 glucose 233, BUN 25, creatinine 1.04, normal lytes Chronic combined systolic and diastolic CHF (congestive heart failure) ([facility]) 03/24/2019 - Present Yes History of coronary artery bypass graft 04/18/2019 - Present Yes Overview 04/10/17 CARTY to LAD, SVG to PDA, SVG to OM ESRD (end stage renal disease) on dialysis ([facility]) 06/05/2022 - Present Yes Overview Sees Dr. Jackson. Sacral fracture ([facility]) 01/07/2025 - Present Yes Closed fracture of left superior pubic ramus ([facility]) 01/07/2025 - Present Yes Chronic atrial fibrillation ([facility]) 01/07/2025 - Present Yes Encephalopathy acute 01/08/2025 - Present Yes CO2 retention 01/08/2025 - Present Yes EXAM PHYSICAL EXAM: BP 105/54 Pulse 116 Temp (Src) 98 (Axillary) Resp 18 Wt 165 lb (74.8k (more content not included)... [facility] 01-12-2025 Note HNO ID: [id number] Author: EVARISTO DAS MD Service: Hospital Medicine Author Type: Physician Type: Progress Notes Filed: 01/12/2025 17:41 Note Text: DEPARTMENT OF HOSPITAL MEDICINE PROGRESS NOTE SERVICE DATE: 01/12/2025 SERVICE TIME: 5:36 PM Hospital Medicine/Primary Attending: Evaristo Das MD NIGHT AND WEEKEND COVERAGE: [place] COVERAGE: Nights: [phone], please page [facility] Night coverage pager [phone]. Probable discharge: 01/12 Disposition: [facility] facility Consultants: Dr. Saucedo for orthopedics Dr. [...] Sunday MRI -refused Will be okay for usp placement for rehab choices made awaiting precertification For urologist straight cath once weekly because he makes little urine but does not void well Principal Problem: Sacral fracture (HCC) Closed fracture of left superior pubic ramus ([facility]) Pain control Recently wheelchair bound at home per Ortho with conservative management Need precert Chronic combined systolic and diastolic CHF (congestive heart failure) ([facility]) History of coronary artery bypass graft Chronic atrial fibrillation ([facility]) on Eliquis Continue midodrine, bumex, atorvastatin Next dialysis Sunday Recent urinary retention with butler that was removed out-patient Monitor urine output Yest residual <50ml Straight cath weekly ESRD (end stage renal disease) on dialysis ([facility]) Hyperkalemia T Sun schedule Type 2 diabetes mellitus without complication, with long-term current use of insulin ([facility]) Lantus 10 units on admission BS on lower side will decrease lantus to 6 units Monitor sugars Goal for glucose 100-180-at goal Patient Active Hospital Problem List: Left hip pain Date Noted: 01/07/2025 Type 2 diabetes mellitus without complication, with long-term current use of insulin ([facility]) Date Noted: 03/21/2016 Chronic combined systolic and diastolic CHF (congestive heart failure) ([facility]) Date Noted: 03/24/2019 History of coronary artery bypass graft Date Noted: 04/18/2019 ESRD (end stage renal disease) on dialysis ([facility]) Date Noted: 06/05/2022 Sacral fracture ([facility]) Date Noted: 01/07/2025 Closed fracture of left superior pubic ramus ([facility]) Date Noted: 01/07/2025 Chronic atrial fibrillation ([facility]) Date Noted: 01/07/2025 Encephalopathy acute Date Noted: [...] treated conservatively and he will go to group home facility for rehab. Dr. Loredo consulted for dialysis. Active Hospital Problems as of 01/12/2025 Noted - Resolved [facility] [place] * (Principal) Left hip pain 01/07/2025 - Present Yes Type 2 diabetes mellitus without complication, with long-term current use of insulin ([facility]) 03/21/2016 - Present Yes Overview 09/04/17 glucose 233, BUN 25, creatinine 1.04, normal lytes Chronic combined systolic and diastolic CHF (congestive heart failure) ([facility]) 03/24/2019 - Present Yes History of coronary artery bypass graft 04/18/2019 - Present Yes Overview 04/10/17 CARTY to LAD, SVG to PDA, SVG to OM ESRD (end stage renal disease) on dialysis ([facility]) 06/05/2022 - Present Yes Overview Sees Dr. Jackson. Sacral fracture ([facility]) 01/07/2025 - Present Yes Closed fracture of left superior pubic ramus ([facility]) 01/07/2025 - Present Yes Chronic atrial fibrillation ([facility]) 01/07/2025 - Present Yes Encephalopathy acute 01/08/2025 [...] at baseline cognitio (more content not included)... [facility] 01-12-2025 Note HNO ID: [id number] Author: IVETT BENITEZ, RN Service: Care Management Author Type: Registered Nurse Type: Care Mgt Progress Note Filed: 01/12/2025 16:11 Note Text: CARE MANAGEMENT PROGRESS NOTE SERVICE DATE: 01/12/2025 SERVICE TIME: 1:22 PM LOS: 0 days Needs Prior to Discharge: To Be Determined, Accepting Facility, Bed Availability, Precertification EMR reviewed. Patient/ changed FOC to [facility]. Awaiting if they can accept. Precert approved for [facility], Onsite HD also approved. PT/OT rec SNF. L Hip pain, sacral fracture, closed fx left superior pubic ramus. Non-surgical. Mentation improved. On RA 4:07 PM Multiple messages sent to [facility] to inquire if they can accept, answered all of their questions asked. They now advised they can accept. Referral to [facility] updated that facility of choice has changed. Precert has been obtained for [facility], Tasked [facility] and sent secure chat message to switch the precert to [facility]. PASS updated and facility changed to [facility]. Met with patient and at bedside to update. SIGNATURE: Ivett Benitez RN PATIENT NAME: Mauri Quinones DATE: January 12, 2025 TIME: 1:22 PM [facility] 01-11-2025 Note HNO ID: [id number] Author: EVARISTO DAS MD Service: Hospital Medicine Author Type: Physician Type: Progress Notes Filed: 01/11/2025 18:03 Note Text: DEPARTMENT OF HOSPITAL MEDICINE PROGRESS NOTE SERVICE DATE: 01/11/2025 SERVICE TIME: 4:54 PM Hospital Medicine/Primary Attending: Evaristo Das MD NIGHT AND WEEKEND COVERAGE: [place] COVERAGE: Nights: [phone], please page [facility] Night coverage pager [phone]. Probable discharge: 01/12 Disposition: [facility] facility Consultants: Dr. Saucedo for orthopedics Dr. [...] Sunday MRI -refused Will be okay for usp placement for rehab choices made awaiting precertification Principal Problem: Left hip pain Sacral fracture (HCC) Closed fracture of left superior pubic ramus ([facility]) Orthopedics consult Pain control Recently wheelchair bound [...] systolic and diastolic CHF (congestive heart failure) ([facility]) History of coronary artery bypass graft Chronic atrial fibrillation ([facility]) on Eliquis Continue midodrine, bumex, atorvastatin Next dialysis Sunday Recent urinary retention with butler that was removed out-patient Monitor urine output Yest residual <50ml ESRD (end stage renal disease) on dialysis ([facility]) Hyperkalemia T Sun schedule with last IHD on 01/06 Dialysis yesterday Type 2 diabetes mellitus without complication, with long-term current use of insulin ([facility]) Lantus 10 units on admission BS on lower side will decrease lantus to 6 units Monitor sugars Goal for glucose 100-180-at goal Patient Active Hospital Problem List: Left hip pain Date Noted: 01/07/2025 Type 2 diabetes mellitus without complication, with long-term current use of insulin ([facility]) Date Noted: 03/21/2016 Chronic combined systolic and diastolic CHF (congestive heart failure) ([facility]) Date Noted: 03/24/2019 History of coronary artery bypass graft Date Noted: 04/18/2019 ESRD (end stage renal disease) on dialysis ([facility]) Date Noted: 06/05/2022 Sacral fracture ([facility]) Date Noted: 01/07/2025 Closed fracture of left superior pubic ramus ([facility]) Date Noted: 01/07/2025 Chronic atrial fibrillation ([facility]) Date Noted: 01/07/2025 Encephalopathy acute Date Noted: [...] treated conservatively and he will go to group home facility for rehab. Dr. Loredo consulted for dialysis. Active Hospital Problems as of 01/11/2025 Noted - Resolved [facility] * (Principal) Left hip pain 01/07/2025 - Present Yes Type 2 diabetes mellitus without complication, with long-term current use of insulin ([facility]) 03/21/2016 - Present Yes Overview 09/04/17 glucose 233, BUN 25, creatinine 1.04, normal lytes Chronic combined systolic and diastolic CHF (congestive heart failure) ([facility]) 03/24/2019 - Present Yes History of coronary artery bypass graft 04/18/2019 - Present Yes Overview 04/10/17 CARTY to LAD, SVG to PDA, SVG to OM ESRD (end stage renal disease) on dialysis ([facility]) 06/05/2022 - Present Yes Overview Sees Dr. Jackson. Sacral fracture ([facility]) 01/07/2025 - Present Yes Closed fracture of left superior pubic ramus ([facility]) 01/07/2025 - Present Yes Chronic atrial fibrillation ([facility]) 01/07/2025 - Present Yes Encephalopathy acute 01/08/2025 - Present Yes CO2 retention 01/08/2025 - Present Yes EXAM PHYSICAL EXAM: BP 124/58 Pulse 87 Temp (Src) 98 (Oral) Resp 18 Wt 165 lb (74.8kg) (more content not included)... [facility] 01-11-2025 Note HNO ID: [id number] Author: MANUELA GUERRIER LSW Service: Care Management Author Type: Telegraphic Instrument Supervisor Type: Care Mgt Progress Note Filed: [...] DATE: January 11, 2025 TIME: 8:25 AM [facility] 01-11-2025 Note HNO ID: [id number] Author: NOTE, INTERFACE, ? Service: ? Author Type: ? Type: Progress Notes Filed: 01/11/2025 02:53 Note Text: Epic Scheduled Downtime: 01/11/2025 1:00:00 AM to 01/11/2025 2:37:00 AM [facility] 01-10-2025 Note HNO ID: [id number] Author: MANUELA GUERRIER LSW Service: Care Management Author Type: Telegraphic Instrument Supervisor Type: Care Mgt Progress Note Filed: 01/10/2025 14:35 Note Text: CARE MANAGEMENT PROGRESS NOTE SERVICE DATE: 01/10/2025 SERVICE TIME: 2:34 PM LOS: 0 days CM received call , from unit [facility], to f/u with pt's family. CM spoke with pt's spouse who is aware precert is still pending at [facility] and she requested that [place] also be sent clinicals for review. Information sent to [place], via [employer]. CM will continue to follow with d/c planning. SIGNATURE: JORGE Barbosa ACM PATIENT NAME: Mauri Quinones DATE: January 10, 2025 TIME: 2:33 PM [facility] 01-10-2025 Note HNO ID: [id number] Author: EVARISTO DAS MD Service: Hospital Medicine Author Type: Physician Type: Progress Notes Filed: 01/10/2025 15:03 Note Text: DEPARTMENT OF HOSPITAL MEDICINE PROGRESS NOTE SERVICE DATE: 01/10/2025 SERVICE TIME: 2:30 PM Hospital Medicine/Primary Attending: Evaristo Das MD NIGHT AND WEEKEND COVERAGE: [place]BYRD COVERAGE: Nights: [phone], please page [facility] Night coverage pager [phone]. Probable discharge: 01/12 Disposition: [facility] facility Consultants: Dr. Saucedo for orthopedics Dr. [...] systolic and diastolic CHF (congestive heart failure) ([facility]) History of coronary artery bypass graft Chronic atrial fibrillation (HCC) on Eliquis Continue midodrine, bumex, atorvastatin Restart eliquis Recent urinary retention with butler that was removed out-patient Monitor urine output Yest residual <50ml ESRD (end stage renal disease) on dialysis ([facility]) Hyperkalemia T Th Sat schedule with last IHD on 01/06 Nephrology consulted Dialysis yesterday Type 2 diabetes mellitus without complication, with long-term current use of insulin ([facility]) Lantus 10 units on admission BS on lower side will decrease lantus to 6 units Monitor sugars Patient Active Hospital Problem List: Left hip pain Date Noted: 01/07/2025 Type 2 diabetes mellitus without complication, with long-term current use of insulin ([facility]) Date Noted: 03/21/2016 Chronic combined systolic and diastolic CHF (congestive heart failure) ([facility]) Date Noted: 03/24/2019 History of coronary artery bypass graft Date Noted: 04/18/2019 ESRD (end stage renal disease) on dialysis ([facility]) Date Noted: 06/05/2022 Sacral fracture ([facility]) Date Noted: 01/07/2025 Closed fracture of left superior pubic ramus ([facility]) Date Noted: 01/07/2025 Chronic atrial fibrillation ([facility]) Date Noted: 01/07/2025 Encephalopathy acute Date Noted: [...] treated conservatively and he will go to group home facility for rehab. Dr. Loredo consulted for dialysis. Active Hospital Problems as of 01/10/2025 Noted - Resolved [facility] [place] * (Principal) Left hip pain 01/07/2025 - Present Yes Type 2 diabetes mellitus without complication, with long-term current use of insulin ([facility]) 03/21/2016 - Present Yes Overview 09/04/17 glucose 233, BUN 25, creatinine 1.04, normal lytes Chronic combined systolic and diastolic CHF (congestive heart failure) ([facility]) 03/24/2019 - Present Yes History of coronary artery bypass graft more content not included)... [facility] 01-10-2025 Note HNO ID: [id number] Author: ABILIO CARRIZALES, RN Service: ? Author Type: Registered Nurse Type: Progress Notes Filed: 01/10/2025 12:53 Note Text: Hemodialysis completed 3.5 hours. Patient tolerated well, BP stable throughout. Fluid removed was 2500 ml. Next HD [place] 5/20/25. Report given post dialysis to Rikki Washington RN [facility] 01-10-2025 Note HNO ID: [id number] Author: NOTE, INTERFACE, ? Service: ? Author Type: ? Type: Progress Notes Filed: 01/10/2025 03:45 Note Text: Epic Scheduled Downtime: 01/10/2025 1:00:00 AM to 01/10/2025 3:39:00 AM [facility] 01-09-2025 Note HNO ID: [id number] Author: IVETT BENITEZ RN Service: Care Management Author Type: Registered Nurse Type: Care Mgt Progress Note Filed: 01/09/2025 16:11 Note Text: CARE MANAGEMENT PROGRESS NOTE SERVICE DATE: 01/09/2025 SERVICE TIME: 2:46 PM LOS: 0 days Needs Prior to Discharge: To Be Determined, Accepting Facility, Bed Availability, Precertification [place] Given: Yes Level of Care Discussed: Jail Facility Financial Disclosure Provided: Yes Provider List: Jail Facility Provider list within the patient's requested geographic area shared with the patient/family: Yes within: 15 miles of zip code: [address] Quality and resource use metrics shared with the patient that are relevant to the patient's goals of care and treatment preferences:: Yes Metrics: Functional Status, Discharge to Community, Potentially Preventable 30-day Post Discharge Readmission Rates PT/OT rec SNF. Met with patient and at bedside. provided [facility] and [facility] as choices. SNF list provided for her to review for further choices in case neither facility can accept. [facility]. They have started auth for SNF and onsite HD. Will need auth for both back prior to admission. [facility]. PASRR completed. SIGNATURE: Ivett Benitez RN PATIENT NAME: Mauri Quinones DATE: January 09, 2025 TIME: 2:45 PM [facility] 01-09-2025 Note HNO ID: [id number] Author: LUIS MADERA MD Service: Hospital Medicine Author Type: Physician Type: Progress Notes Filed: 01/09/2025 16:09 Note Text: DEPARTMENT OF HOSPITAL MEDICINE Progress note SERVICE DATE: 01/09/2025 SERVICE TIME: 2:19 PM Primary Care Physician: Rigoberto Gould MD NIGHT AND WEEKEND COVERAGE: [place] COVERAGE: Days: [phone], please page attending physician. Nights: [phone], please page [facility] Night coverage pager [phone]. Subjective Seen working with therapy. Heavy assist. [...] and Airways Line Duration Peripheral 01/07/[address] [facility] Right Antecubital 20 Gauge 2 days DATA: [...] Closed fracture of left superior pubic ramus ([facility]) Orthopedics consult Pain control Recently wheelchair bound [...] systolic and diastolic CHF (congestive heart failure) ([facility]) History of coronary artery bypass graft Chronic atrial fibrillation (HCC) on Eliquis Continue midodrine, bumex, atorvastatin Restart eliquis Recent urinary retention with butler that was removed out-patient Monitor urine output Yest residual <50ml ESRD (end stage renal disease) on dialysis ([facility]) Hyperkalemia T Th Sat schedule with last IHD on 01/06 Nephrology consulted Dialysis yesterday Type 2 diabetes mellitus without complication, with long-term current use of insulin ([facility]) Lantus 10 units on admission BS on [...] reflect current decision making from today, 01/09/25 [facility] 01-09-2025 Telephone encounter Note Tracie from direction Home calling patient was transferred to [facility] with fractured pelvis. Plan to discharge to SNF with dialysis when patient is ready. [facility] 01-09-2025 Miscellaneous Notes Tracie from direction Home calling patient was transferred to [facility] with fractured pelvis. Plan to discharge to SNF with dialysis when patient is ready. documented in this encounter [facility] 01-08-2025 Note HNO ID: [id number] Author: KENNA FRAGOSO RN Service: Dialysis Author Type: Registered Nurse Type: Progress Notes Filed: 01/08/2025 20:18 Note Text: 3hr HD tx complete via left upper AVF. Hemostasis achieved. +thrill/bruit. Total UF remove =1L. Report provided to primary RN. See scanned docs for tx data. [facility] 01-08-2025 Note HNO ID: [id number] Author: LUIS MADERA MD Service: Hospital Medicine Author Type: Physician Type: Progress Notes Filed: 01/08/2025 13:59 Note Text: DEPARTMENT OF HOSPITAL MEDICINE Progress note SERVICE DATE: 01/08/2025 SERVICE TIME: 1:50 PM Primary Care Physician: Rigoberto Gould MD NIGHT AND WEEKEND COVERAGE: [place] COVERAGE: Days: [phone], please page attending physician. Nights: [phone], please page [facility] Night coverage pager [phone]. Subjective Patient sleepy per nurse, arousable. Denies [...] and Airways Line Duration Peripheral 01/07/[address] [facility] Right Antecubital 20 Gauge <1 day DATA: [...] reflect current decision making from today, 01/08/25 [facility] 01-08-2025 Note HNO ID: [id number] Author: FLOYD RICHMOND RN Service: ? Author Type: Registered Nurse Type: Progress Notes Filed: 01/08/2025 11:14 Note Text: Transitional Care Management (TCM) Inpatient Outreach N/A - No specialty updates needed Summary: Patient admitted to: [facility] Patient admitted on: 01/07/2025 Admitted for: fractured pelvis Contact made with patient: No Mychart message sent Outreach ended. Floyd Richmond RN January 08, 2025 [facility] 01-08-2025 History of Presen t illness Narrative Transitional Care Management (TCM) Inpatient Outreach N/A - No specialty updates needed Summary: Patient admitted to: [facility] Patient admitted on: 01/07/2025 Admitted for: fractured pelvis Contact made with patient: No Mychart message sent Outreach ended. Floyd Richmond RN January 08, 2025 documented in this encounter [facility] 01-08-2025 Note Patient Outreach ([facility] MAURI QUINONES ([id number]) 1955 M T Date Time Provider Department 01/08/25 FLOYD RICHMOND [facility] During your visit today, we recorded the following information about you: Floyd Richmond RN 01/08/2025 11:14 AM Signed Transitional Care Management (TCM) Inpatient Outreach N/A - No specialty updates needed Summary: Patient admitted to: [facility] Patient admitted on: 01/07/2025 Admitted for: fractured pelvis Contact made with patient: No [employer] message sent Outreach ended. Floyd Richmond [...] tablet by mouth every morning. - Insulin [place], Disposable, (BD ULTRA-FINE GOLDY PEN NEEDLE) 32 [...] Ischemic cardiomyopathy [I25.5] (more content not included)... [facility] 01-07-2025 Note HNO ID: [id number] Author: MANUELA GUERRIER LSW Service: Care Management Author Type: Telegraphic Instrument Supervisor Type: Care Mgt Initial Assessment Filed: 01/07/2025 22:36 Note Text: CARE MANAGEMENT: ASSESSMENT AND DISCHARGE PLAN SERVICE DATE: January 07, 2025 SERVICE TIME: 10:33 PM PCP: Rigoberto Gould MD/reviewed Primary Contact: Extended Emergency Contact Information Primary Emergency Contact: Yun Aguilera Address: [facility] [place] [id number] [place] [address] Mobile Relation: Spouse Admission Status: Observation Insurance Provider: [employer] HMO Discharge Planning requested by: Per Department Practice Potential Transition Plans Advance Directives Current Advance Directive: Health Care Power of Biomass Production Manager, Living Will In Chart: No Hebrew Teacher Attempted to Assist with AD Completion: Yes [...] Robin Discharge Planning Patient Goal(s): General wellness [place] Explained: [place] Given: No Reason Not Given: [...] current services. SNF 2 years ago @ [facility]. [facility], in [facility]. Uses wheelchair. ESRD T//Sat [facility]. Spouse will garbage pick up man on d/c. CM will follow with d/c planning needs. SIGNATURE: JORGE Barbosa, [place] PATIENT NAME: Mauri Quinones DATE: January 07, 2025 TIME: 10:33 PM [facility] 01-07-2025 Note HNO ID: [id number] Author: GISELE TRAN RN Service: Nursing Author Type: Registered Nurse Type: Nursing Progress Note Filed: 01/07/2025 09:47 Note Text: [id number]: paged for admission orders [facility] 01-06-2025 Radiology Diagnostic study note [facility] 01-06-2025 Radiology Diagnostic study note [facility] 01-06-2025 Radiology Diagnostic study note [facility] 01-06-2025 History of Presen t illness Narrative Patient presents to have bladder drained. Patient is a dialysis patient but has retention and history of UTI's. Catheter inserted and 350 ml brownish urine. Patient to have drained weekly to try to prevent UTI. documented in this encounter [facility] 01-06-2025 Note HNO ID: [id number] Author: NICK MUÑOZ RN Service: ? Author Type: Registered Nurse Type: Progress Notes Filed: 01/23/2025 10:48 Note Text: Patient presents to have bladder drained. Patient is a dialysis patient but has retention and history of UTI's. Catheter inserted and 350 ml brownish urine. Patient to have drained weekly to try to prevent UTI. [facility] 01-06-2025 Telephone encounter Note Nick spoke with patient and coming in for Nurse visit today. [facility] 01-06-2025 Miscellaneous Notes Nick spoke with [...] Puckett Jr, MD documented in this encounter [facility] 01-05-2025 Telephone encounter Note Patient calling to see which DrDavion He saw when there at office. I attempted to call back and get patient the information. Left Dr. Puckett's name on voicemail, and advised to call back if needed. PLAN: Butler out today Will call if has to have replaced Would do cysto then Jensen Puckett Jr, MD [facility] 01-03-2025 Note HNO ID: [id number] Author: JENSEN PUCKETT JR, MD Service: ? Author Type: Physician Type: Progress Notes Filed: 01/03/2025 15:13 Note Text: NEW PATIENT HISTORY AND PHYSICAL EXAM PATIENT INFO: Mauri Quinones 69 year old REFERRING PROVIDER: NO PCP PCP: Rigoberto Gould MD HPI Mauri Quinones is a 69 year old male refer for urinary retention. On HD. Makes very little urine. Would like butelr removed. Discussed cysto. Declined for now. Not [...] Value 04/24/2022 Negative 03/23/2019 NEGATIVE mg/dL Specific [place], Ur (no units) Date Value 04/24/2022 1.014 [...] 1 tablet by mouth every morning. Insulin Winthrop, Disposable, (BD ULTRA-FINE GOLDY PEN NEEDLE) 32 [...] Acute on chronic diastolic congestive heart failure ([facility]) 07/14/2018 GARRET (acute kidney injury) 03/24/2019 GARRET (acute kidney injury) 03/24/2019 Ankylosing spondylitis ([facility]) CAD (coronary artery disease) Cellulitis Chronic combined systolic and diastolic CHF (congestive heart failure) ([facility]) 03/24/2019 CKD (chronic kidney disease) stage 3, GFR 30-59 ml/min ([facility]) 03/24/2019 Constipation Diabetes ([facility]) Gout High phosphate levels 03/24/2019 History of [...] valve calcifi NSTEMI (non-ST elevated myocardial infarction) ([facility]) 03/12/2017 [facility] admit Osteoarthritis Transition of care performed with sharing of clinical summary 04/08/2019 Admit [facility] 03/21/19-03/22/19 Discharge diagnoses chronic kidney disease with worsening creatinine, acute kidney injury Hypokalemia Toxic encephalopathy secondary to Flexeril overusage Type 2 diabe (more content not included)... [facility] 01-03-2025 History of Presen t illness [...] Value 04/24/2022 Negative 03/23/2019 NEGATIVE mg/dL Specific [place], Ur (no units) Date Value 04/24/2022 1.014 [...] 1 tablet by mouth every morning. Insulin Winthrop, Disposable, (BD ULTRA-FINE GOLDY PEN NEEDLE) 32 [...] Acute on chronic diastolic congestive heart failure ([facility]) 07/14/2018 GARRET (acute kidney injury) 03/24/2019 GARRET (acute kidney injury) 03/24/2019 Ankylosing spondylitis ([facility]) CAD (coronary artery disease) Cellulitis Chronic combined systolic and diastolic CHF (congestive heart failure) ([facility]) 03/24/2019 CKD (chronic kidney disease) stage 3, GFR 30-59 ml/min ([facility]) 03/24/2019 Constipation Diabetes ([facility]) Gout High phosphate levels 03/24/2019 History of [...] NSTEMI (non-ST elevated myocardial infarction) (HCC) 03/12/2017 [facility] admit Osteoarthritis Transition of care performed with sharing of clinical summary 04/08/2019 Admit [facility] 03/21/19-03/22/19 Discharge diagnoses chronic kidney disease with worsening creatinine, acute kidney injury Hypokalemia Toxic encephalopathy secondary to Flexeril overusage Type 2 diabetes Ischemic cardiomyopathy Coronary artery disease Ligamental cervical neck strain and acute Pulmonary hypertension Hypertension Pyuria Preadmit: to [facility] ED with slurred speech, lethargy. FAMILY [...] (R33.9) Urinary retention (primary encounter diagnosis) PLAN: Butlre out today Will call if has to have replaced Would do cysto then Jensen Puckett Jr, MD documented in this encounter [facility] 01-02-2025 Telephone encounter Note Call placed to patient and notified of below with verbalized understanding. Susu Hernandez RN [facility] 01-02-2025 Miscellaneous Notes Call placed to [...] increase the dose of trazodone. Pharmacy is [facility]. Susu Hernandez RN documented in this encounter [facility] 01-02-2025 Telephone encounter Note Lets increase the dose to 100 mg at bedtime. Let me know again in a couple weeks how he is doing. It could be increased further if need be. Order sent to pharmacy. May take 2 of the 50s to use them up. [facility] 01-02-2025 Telephone encounter Note Patient calls [...] increase the dose of trazodone. Pharmacy is [facility]. Susu Hernandez RN [facility] 12-30-2024 Telephone encounter Note [facility]- phoned concerned about pt not voiding for one week and asked if patient had seen pcp. Given Rozina update on patient per chart notes. Rozina will call patient to discuss. [facility] 12-30-2024 Miscellaneous Notes [facility]- phoned concerned about pt not voiding for one week and asked if patient had seen pcp. Given Rozina update on patient per chart notes. Rozina will call patient to discuss. documented in this encounter [facility] 12-30-2024 Telephone encounter Note Patient calling [...] have any questions, you can call Nurse salon professional back. [facility] 12-30-2024 Miscellaneous Notes Patient calling with [...] have any questions, you can call Nurse salon professional back. documented in this encounter [facility] 12-29-2024 Note HNO ID: [id number] Author: RIGOBERTO GOULD MD Service: ? Author Type: Physician Type: Progress Notes Filed: 12/29/2024 15:18 Note Text: Patient presents with: ER F/U Hospital F/U HPI: Patient presents today for office visit for follow up. Was in [facility] ER on 12/22/24 had butler placed and 415 cc of urine drained. Has not seen urology yet because they didn't take his insurance. Was given rocephin in ER. Currently on cefdinir has 3 days left. States that has not urinated at all since left [facility] that day. He normally urinates daily. [...] 1 tablet by mouth every morning. Insulin Winthrop, Disposable, (BD ULTRA-FINE GOLDY PEN NEEDLE) 32 [...] GARRET (acute kidney injury) 03/24/2019 Ankylosing spondylitis ([facility]) CAD (coronary artery disease) Cellulitis Chronic combined systolic and diastolic CHF (congestive heart failure) ([facility]) 03/24/2019 CKD (chronic kidney disease) stage 3, GFR 30-59 ml/min ([facility]) 03/24/2019 Constipation Diabetes ([facility]) Gout High phosphate levels 03/24/2019 History of coronary artery bypass graft 04/18/2019 04/10/17 CARTY to LAD, SVG to PDA, SVG to OM Hx of fracture multiple bones Hyperkalemia 03/24/2019 Hypoalbuminemia 03/24/2019 Hyponatremia 03/24/2019 Hypoxia 03/24/2019 Ischemic cardiomyopathy 04/18/2019 Echocardiogram 01/10/19 Dr. Nnuez: Dilated left ventricle, left ventricular ejection fraction 40%, mild to moderate systolic dysfunction, moderate concentric LVH, dilated left and right atria. Mild mitral valve thickening with papillary muscle dysfunction, mild mitral valve insufficiency, tricuspid valve insufficiency, aortic valve insufficiency, pulmonic valve insufficiency. Aortic valve calcifi NSTEMI (non-ST elevated myocardial infarction) (HCC) 03/12/2017 [facility] admit Osteoarthritis Transition of care performed with sharing of clinical summary 04/08/2019 Admit [facility] 03/21/19-03/22/19 Discharge diagnoses chronic kidney disease with worsening creatinine, acute kidney injury Hypokalemia Toxic encephalopathy secondary to Flexeril overusage Type 2 diabetes Ischemic cardiomyopathy Coronary artery disease Ligamental cervical neck strain and acute Pulmonary hypertension Hypertension Pyuria Preadmit: to [facility] ED with slurred speech, lethargy. PAST [...] 09/07/17 Jensen Downey (more content not included)... [facility] 12-29-2024 History of Presen t illness Narrative Patient presents with: ER F/U Hospital F/U HPI: Patient presents today for office visit for follow up. Was in [facility] ER on 12/22/24 had butler placed and 415 cc of urine drained. Has not seen urology yet because they didn't take his insurance. Was given rocephin in ER. Currently on cefdinir has 3 days left. States that has not urinated at all since left [facility] that day. He normally urinates daily. [...] 1 tablet by mouth every morning. Insulin Winthrop, Disposable, (BD ULTRA-FINE GOLDY PEN NEEDLE) 32 [...] GARRET (acute kidney injury) 03/24/2019 Ankylosing spondylitis ([facility]) CAD (coronary artery disease) Cellulitis Chronic combined systolic and diastolic CHF (congestive heart failure) ([facility]) 03/24/2019 CKD (chronic kidney disease) stage 3, GFR 30-59 ml/min ([facility]) 03/24/2019 Constipation Diabetes ([facility]) Gout High phosphate levels 03/24/2019 History of [...] valve calcifi NSTEMI (non-ST elevated myocardial infarction) ([facility]) 03/12/2017 [facility] admit Osteoarthritis Transition of care performed with sharing of clinical summary 04/08/2019 Admit [facility] 03/21/19-03/22/19 Discharge diagnoses chronic kidney disease with worsening creatinine, acute kidney injury Hypokalemia Toxic encephalopathy secondary to Flexeril overusage Type 2 diabetes Ischemic cardiomyopathy Coronary artery disease Ligamental cervical neck strain and acute Pulmonary hypertension Hypertension Pyuria Preadmit: to [facility] ED with slurred speech, lethargy. PAST [...] Rigoberto Gould MD documented in this encounter [facility] 12-26-2024 Telephone encounter Note Called and left a voicemail for the Patient to call back and ask for a nurse to receive the providers message. Bryce Landin RN [facility] 12-26-2024 Miscellaneous Notes Called and left a voicemail for the Patient to call back and ask for a nurse to receive the providers message. Bryce Landin RN If he normally puts out regular urine, needs evaluated in the er to assess if he is acutely retaining. reports pt has not urinated since Sunday, when butler was discontinued at [facility]. 5 days. reports pt was in [facility] 2 days: at first had vomiting. Pt had missed dialysis 2 days prior to going to [facility]. [facility] discovered pt was overloaded with fluids since missed dialysis, and pt had a UTI. reports pt's urine was brown. [facility] also decreased bumex for pt to omit on dialysis days. Dr. Jackson changed those orders for pt to take bumex daily now. states this may have contributed to why patient hasn't urinated since Sunday, plus a lot of fluid was removed during dialysis on Sat, Sun, & , and the UTI. A-fib was also discovered during stay at [facility]. Pt has appt with cardiology today to follow up on this. Pt plans to return to [facility] ER if develops urine symptoms: pain, bladder distension, bloating. Pt is not having any of these symptoms today. In the meantime he's asking pcp to send referral to [facility] urologist. Pt is willing to travel since [place] does not have a urology doctor. Asking pcp if you can place the referral. Answer Assessment - Initial Assessment Questions 1. SYMPTOM: Pt has not urinated since Sunday- [facility] removed butler per pt request on Sunday. reports there was a lot of urine in the butler when they removed it. Pt also has UTI and [facility] gave IV AB's and sent pt home with AB pills. Pt is taking these. Pt gets dialysis TTSat. Prior to ER visit he spent 2 days at [facility] for vomiting, he was overloaded with fluid b/c he missed dialysis 2 days- [facility] did the dialysis during stay. This past Sat he had dialysis- also had Tue and Thurs. [facility] also found a-fib during hospital stay. Pt has appt with regulatory compliance coordinator today to follow up on a-fib. Pt [...] is why patient is not having symptoms. [facility]- Dr. Allen's office will not accept pts insurance but [facility] ER does, and instructed pt to return if any bladder symptoms. Pt plans to return to ER if having any urinary concerns: pressure, bloating, distention, pain. Pt is not having these symptoms today. Pt only contacted pcp office to ask for referral to urologist at [facility], since Dr. Allen does not accept his insurance. Pt wants to schedule appt with [facility] urologist to figure out why he has not urinated since Sunday. reports patient has seen urologist at [place] in the past. Asking if pcp can write a referral so he can schedule appt with urologist. Protocols used: Urinary [id number] documented in this encounter [facility] 12-26-2024 Telephone encounter Note If he normally puts out regular urine, needs evaluated in the er to assess if he is acutely retaining. [facility] 12-26-2024 Telephone encounter Note reports pt has not urinated since Sunday, when butler was discontinued at [facility]. 5 days. reports pt was in [facility] 2 days: at first had vomiting. Pt had missed dialysis 2 days prior to going to [facility]. [facility] discovered pt was overloaded with fluids since missed dialysis, and pt had a UTI. reports pt's urine was brown. [facility] also decreased bumex for pt to omit on dialysis days. Dr. Jackson changed those orders for pt to take bumex daily now. states this may have contributed to why patient hasn't urinated since Sunday, plus a lot of fluid was removed during dialysis on Sun, Sun, & , and the UTI. A-fib was also discovered during stay at [facility]. Pt has appt with cardiology today to follow up on this. Pt plans to return to [facility] ER if develops urine symptoms: pain, bladder distension, bloating. Pt is not having any of these symptoms today. In the meantime he's asking pcp to send referral to [facility] urologist. Pt is willing to travel since [place] does not have a urology doctor. Asking pcp if you can place the referral. Answer Assessment - Initial Assessment Questions 1. SYMPTOM: Pt has not urinated since Sunday- [facility] removed butler per pt request on Sunday. reports there was a lot of urine in the butler when they removed it. Pt also has UTI and [facility] gave IV AB's and sent pt home with AB pills. Pt is taking these. Pt gets dialysis TTSat. Prior to ER visit he spent 2 days at [facility] for vomiting, he was overloaded with fluid b/c he missed dialysis 2 days- [facility] did the dialysis during stay. This past Sat he had dialysis- also had e and . [facility] also found a-fib during hospital stay. Pt has appt with regulatory compliance coordinator today to follow up on a-fib. Pt [...] is why patient is not having symptoms. [facility]- Dr. Allen's office will not accept pts insurance but [facility] ER does, and instructed pt to return if any bladder symptoms. Pt plans to return to ER if having any urinary concerns: pressure, bloating, distention, pain. Pt is not having these symptoms today. Pt only contacted pcp office to ask for referral to urologist at [facility], since Dr. Allen does not accept his insurance. Pt wants to schedule appt with [facility] urologist to figure out why he has not urinated since Sunday. reports patient has seen urologist at [place] in the past. Asking if pcp can write a referral so he can schedule appt with urologist. Protocols used: Urinary [id number] [facility] 12-17-2024 Note HNO ID: [id number] Author: NUPUR DE LA ROSA MD Service: [...] systolic and diastolic CHF (congestive heart failure) ([facility]) 03/24/2019 CKD (chronic kidney disease) stage 3, GFR 30-59 ml/min ([facility]) 03/24/2019 Constipation Diabetes ([facility]) ESRD (end stage renal disease) ([facility]) Gout History of coronary artery bypass graft [...] valve calcifi NSTEMI (non-ST elevated myocardial infarction) ([facility]) 03/12/2017 [facility] admit Osteoarthritis PAST SURGICAL HISTORY Procedure [...] La Rosa M.D. Department of Orthopaedic Surgery [facility] 12-16-2024 Note HNO ID: [id number] Author: YANET CEDENO RN Service: ? Author Type: Registered Nurse Type: Progress Notes Filed: 12/16/2024 13:26 Note Text: Attending Anesthesiologist Management TCM Outreach PCP Update / Actionable Items N/A - No specialty updates needed Patient Source: Lxv-pt-Meezosz (OON) Discharge Initial outreach: Non-Value Based Patient Outreach Summary: LMOM Patient discharged from [facility] Discharge date: No info Admitted for: No info Readmission Risk: No info Value-Based Contract: Non-Value Based Contact: Contact made with patient: No - Second unsuccessful attempt. Yanet Phelps RN December 16, 2024 1:26 PM [facility] 12-16-2024 History of Presen t illness Narrative Attending Anesthesiologist Management TCM Outreach PCP Update / Actionable Items N/A - No specialty updates needed Patient Source: Ctq-jc-Hrmvarb (OON) Discharge Initial outreach: Non-Value Based Patient Outreach Summary: LMOM Patient discharged from [facility] Discharge date: No info Admitted for: No info Readmission Risk: No info Value-Based Contract: Non-Value Based Contact: Contact made with patient: No - Second unsuccessful attempt. Yanet Phelps RN December 16, 2024 1:26 PM documented in this encounter [facility] 12-16-2024 Note Patient Outreach (AM BCMG) MAURI QUINONES ([id number]) 1955 M Date Time Provider Department 12/16/24 YANET CEDENO During your visit today, we recorded the following information about you: Yanet Cedeno RN 12/16/2024 1:26 PM Signed Attending Anesthesiologist Management TCM Outreach PCP Update / Actionable Items N/A - No specialty updates needed Patient Source: Dqu-mr-Vrrfbkw (OON) Discharge Initial outreach: Non-Value Based Patient Outreach Summary: LMOM Patient discharged from [facility] Discharge date: No info Admitted for: No [...] tablet by mouth every morning. - Insulin [place], Disposable, (BD ULTRA-FINE GOLDY PEN NEEDLE) 32 [...] not elsewhere clas*06/04/202012/02/ (more content not included)... [facility] 12-15-2024 Note HNO ID: [id number] Author: KRISTAN FONTANEZ RN Service: ? Author Type: Registered Nurse Type: Progress Notes Filed: 12/16/2024 13:08 Note Text: Summary: [facility] Hospital Discharge Outreach -Initial -OON Attending Anesthesiologist Management TCM Outreach PCP Update / Actionable Items N/A N/A - No specialty updates needed Patient Source: Ybb-lm-Acdgmjx (OON) Discharge Initial outreach: Non-Value Based Patient Outreach Summary: NALM x 3 -I called the patient twice again today and the spouse to no avail. Patient discharged from: [facility] Discharge date: 12/13/24 Admitted for: Not listed Readmission Risk: Not listed Value-Based Contract: Non-Value Based Contact: Contact made with patient: No - Second unsuccessful attempt. Kristan Fontanez RN December 16, 2024 1:07 PM Attending Anesthesiologist Management TCM Outreach PCP Update / Actionable Items N/A N/A - No specialty updates needed Patient Source: Fsf-qe-Srynlhd (OON) Discharge Initial outreach: Non-Value Based Patient Outreach Summary: NALM x2 Patient discharged from: [facility] Discharge date: 12/13/24 Admitted for: Not listed Readmission Risk: Not listed Value-Based Contract: Non-Value Based Contact: Contact made with patient: No - Next outreach attempt scheduled for the next day. Kristan Fontanez RN December 15, 2024 3:57 PM [facility] 12-15-2024 History of Presen t illness Narrative Summary: [facility] Hospital Discharge Outreach -Initial -OON Attending Anesthesiologist Management TCM Outreach PCP Update / Actionable Items N/A N/A - No specialty updates needed Patient Source: Xqs-de-Vfvbohl (OON) Discharge Initial outreach: Non-Value Based Patient Outreach Summary: NALM x 3 -I called the patient twice again today and the spouse to no avail. Patient discharged from: [facility] Discharge date: 12/13/24 Admitted for: Not listed Readmission Risk: Not listed Value-Based Contract: Non-Value Based Contact: Contact made with patient: No - Second unsuccessful attempt. Krisatn Fontanez RN December 16, 2024 1:07 PM Attending Anesthesiologist Management TCM Outreach PCP Update / Actionable Items N/A N/A - No specialty updates needed Patient Source: Dhl-pp-Yspcwwp (OON) Discharge Initial outreach: Non-Value Based Patient Outreach Summary: NALM x2 Patient discharged from: [facility] Discharge date: 12/13/24 Admitted for: Not listed Readmission Risk: Not listed Value-Based Contract: Non-Value Based Contact: Contact made with patient: No - Next outreach attempt scheduled for the next day. Kristan Fontanez RN December 15, 2024 3:57 PM documented in this encounter [facility] 12-15-2024 Note Patient Outreach (AM BC) MAURI QUINONES ([id number]) 1955 M Date Time Provider Department 12/15/24 KRISTAN FONTANEZ During your visit today, we recorded the following information about you: Kristan Fontanez RN 12/16/2024 1:08 PM Signed Attending Anesthesiologist Management TCM Outreach PCP Update / Actionable Items N/A N/A - No specialty updates needed Patient Source: Fha-yl-Tiatynd (OON) Discharge Initial outreach: Non-Value Based Patient Outreach Summary: NALM x 3 -I called the patient twice again today and the spouse to no avail. Patient discharged from: [facility] Discharge date: 12/13/24 Admitted for: Not listed Readmission Risk: Not listed Value-Based Contract: Non-Value Based Contact: Contact made with patient: No - Second unsuccessful attempt. Kristan Fontanez RN December 16, 2024 1:07 PM Attending Anesthesiologist Management TCM Outreach PCP Update / Actionable Items N/A N/A - No specialty updates needed Patient Source: Vlc-in-Lbqcuyq (OON) Discharge Initial outreach: Non-Value Based Patient Outreach Summary: NALM x2 Patient discharged from: [facility] Discharge date: 12/13/24 Admitted for: Not [...] for Visit: Transition Of Care [4074] Cmt: [facility] Initial Hospital Discharge-OON Prescriptions as of 12/19/2024 [...] tablet by mouth every morning. - Insulin [place], Disposable, (BD ULTRA-FINE GOLDY PEN NEEDLE) 32 [...] injury) (HCC) [N17.9] more content not included)... [facility] 12-13-2024 Discharge summary Note Date/Time December 13, 2024 1:39pm [facility] Medical Records Department [address] [place] [id number] Discharge Summary 12/13/24 1333 MR#: [id number] Acct: [id number] Name: MAURI QUINONES Rep #:[id number] : 1955 69 From: Sukumar Hansen PCP: Dr. Rigoberto Gould MD Status:ADM I N Location: [place] [address] Providers Date of Admission: 12/11/24 Date of [...] end-stage renal disease 12/13: Discussed with the joiner apprentice Dr. De La Rosa. Follow-up pulmonary clinic [...] and patient and denied history of A-fib. child monitor shows A-fib 2. Patient was seen by regulatory compliance coordinator. #8. CAD: Status post CABG (S/P surgery with CARTY to LAD, SVG to OM system, and SVG to PDA in March 2017 at [facility]), if able to tolerate will continue aspirin, [...] 71.5 H, Lymph % (Auto) 10.5 L, [place] % (Auto) 15.1 H, Eos % (Auto) [...] Self Care Charges/Coding Visit Charges Inpatient E&M: 23072 Disch Hosp >30min 12/13/24 1339 <Electronically signed by Sukumar Restrepo MD> Cosigner Signature (if applicable): CC: Dr. Sukumar Restrepo MD; Dr. Rigoberto Gould MD~ Signed [facility] Work Phone: [phone]) 134-179704-19-2025 Discharge summary Author Sukumar Restrepo [facility] Note Date/Time December 13, 2024 1:3 3pm [facility] Medical Records Department [address] [place] [address] Instructions for Home/Discharge Instructions 12/13/24 0935 MR#: [id number] Acct: [id number] Name: MAURI QUINONES Rep #:[id number] : 1955 69 From: Sukumar Hansen PCP: Dr. Rigoberto oGuld MD Status:ADM I N Discharge Instructions Diet [...] MD; Dr. Rigoberto Gould MD ~ Signed [facility] [facility] Work Phone: 1(309) 244-634604-19-2025 Discharge summary [facility] Medical Records Department [address] [place] [address] Discharge Summary 12/13/24 1333 MR#: [id number] Acct: [id number] Name: MAURI QUINONES Rep #:[id number] : 1955 69 From: Sukumar Hansen PCP: Dr. Rigoberto Gould MD Status:ADM I N Location: [place] [address] Providers Date of Admission: 12/11/24 Date of [...] end-stage renal disease 12/13: Discussed with the joiner apprentice Dr. De La Rosa. Follow-up pulmonary clinic [...] and patient and denied history of A-fib. child monitor shows A-fib 2. Patient was seen by regulatory compliance coordinator. #8. CAD: Status post CABG (S/P surgery with CARTY to LAD, SVG to OM system, and SVG to PDA in March2017 at [facility]), if able to tolerate will continue aspirin, [...] 71.5 H, Lymph % (Auto) 10.5 L, Kemper % (Auto) 15.1 H, Eos % (Auto) [...] Self Care Charges/Coding Visit Charges Inpatient E&M: 48252 Disch Hosp >30min 12/13/24 1339 Cosigner Signature (if applicable): CC: Dr. Sukumar Restrepo MD; Dr. Rigoberto Gould MD~ Signed [facility]04-19-2025 Discharge summary [facility] Medical Records Department [address] [place] [address] Instructions for Home/Discharge Instructions 12/13/24 0935 MR#: [id number] Acct: [id number] Name: MAURI QUINONES Rep #:[id number] : [...] MD; Dr. Rigoberto Gould MD ~ Signed [facility]04-19-2025 [facility] Medical Records Department [address] [place] [address] Discharge Summary 12/13/24 1333 MR#: [id number] Acct: [id number] Name: MAURI QUINONES Rep #: [id number] : 1955 69 From: Sukumar Resrtepo MD PCP: Dr. Rigoberto Gould MD Status:ADM IN Location: [place] [address] Providers Date of Admission: 12/11/24 Date of [...] end-stage renal disease 12/13: Discussed with the joiner apprentice Dr. De La Rosa. Follow-up pulmonary clinic [...] and patient and denied history of A-fib. child monitor shows A-fib 2. Patient was seen by regulatory compliance coordinator. #8. CAD: Status post CABG (S/P surgery with CARTY to LAD, SVG to OM system, and SVG to PDA in March 2017 at [facility]), if able to tolerate will continue aspirin, [...] home regimen including hy (more content not included)...[facility]04-19-2025 Progress note Author Jensen Claire [facility] Note Date/Time December 13, 2024 9:5 4am [facility] Medical Records Department [address] [place] [address] Progress Note - Cardiology 12/13/24 0944 MR#: [id number] Acct: [id number] Name: MAURI QUINONES Rep #:[id number] : 1955 69 From: Jensen Claire MD PCP: Dr. Rigoberto Gould MD Status:ADM I N Location: [place] [address] Subjective Subjective Patient reports that he completed [...] 71.5 H, Lymph % (Auto) 10.5 L, Kemper % (Auto) 15.1 H, Eos % (Auto) [...] 71.5 H, Lymph % (Auto) 10.5 L, Kemper % (Auto) 15.1 H, Eos % (Auto) [...] in place. Charges/Coding Visit Charges Inpatient E&M: 74310 Subs Hosp L3 12/13/24 0954 <Electronically signed by Jensen Claire MD> Cosigner Signature (if applicable): CC: ~ Signed [facility] Work Phone: 1(732) 946-425704-19-2025 Progress note [facility] Medical Records Department [address] [place] [address] Progress Note - Cardiology 12/13/24943 MR#: [id number] Acct: [id number] Name: MAURI QUINONES Rep #:[id number] : 1955 69 From: Jensen Claire MD PCP: Dr. Rigoberto Gould MD Status:ADM I N Location: [place] [address] Subjective Subjective Patient reports that he completed [...] 71.5 H, Lymph % (Auto) 10.5 L, Kemper % (Auto) 15.1 H, Eos % (Auto) [...] 71.5 H, Lymph % (Auto) 10.5 L, Kemper% (Auto) 15.1 H, Eos % (Auto) 2.1, [...] in place. Charges/Coding Visit Charges Inpatient E&M: 33631 [facility] Hosp 12/13/24 0934 Cosigner Signature (if applicable): CC: ~ Signed [facility]04-19-2025 Consult note Author Lauren husain [facility] Note Date/Time December 13, 2024 1:5 2am [facility] Medical Records Department [address] [place] [address] Consultation - Nephrology 12/12/24 0935 MR#: [id number] Acct: [id number] Name: MAURI QUINONES Rep #:[id number] : 1955 69 From: Lauren macario MD PCP: Dr. Rigoberto Gould MD Status:ADM I N Location: [place] [address] Assessment & Plan Assessment/Plan (1) End-stage renal [...] dialysis management. ESRD. Patient usually dialyzes at [facility] on TTS schedule. Patient had missed 2 [...] some urine, and there is no LUTS. [facility] Medical History C. difficile diarrhea Anemia History of GI bleed Pure hypercholesterolemia Ischemic cardiomyopathy Essential hypertension Renal insufficiency Ankylosing spondylitis CAD (coronary artery disease) Overweight (BMI 25.0-29.9) Leg edema Leg swelling Acute systolic heart failure Bradycardia Biliary pleural effusion HTN (hypertension) Ventricular tachyarrhythmia Atherosclerosis of [place] coronary artery of [place] heart without angina pectoris Pulmonary HTN Cardiomyopathy [...] (Auto) 77.3 H, Lymph % (Auto) 7.7L, Kemper % (Auto) 13.0 H, Eos % (Auto) [...] (Auto) 75.1 H, Lymph % (Auto) 8.4L, Kemper % (Auto) 14.7 H, Eos % (Auto) [...] 12/11/24 15:10 IMPRESSION: CHF exacerbation. Reading [facility] 12/13/24 0152 <Electronically signed by Lauren Mcintyre MD> Cosigner Signature (if applicable): CC: Dr. Rigoberto Gould MD~ Signed [facility] Work Phone: 1(783) 728-435004-19-2025 Consult note [facility] Medical Records Department [address] [place] [address] Consultation - Nephrology 12/12/24 0935 MR#: [id number] Acct: [id number] Name: QUINONESMAURI L Rep #:[id number] : 1955 69 From: Lauren macario MD PCP: Dr. Rigoberto Gould MD Status:ADM I N Location: [place] [address] Assessment & Plan Assessment/Plan (1) End-stage renal [...] dialysis management. ESRD. Patient usually dialyzes at [facility] on TTS schedule. Patient had missed 2 [...] some urine, and there is no LUTS. [facility] Medical History C. difficile diarrhea Anemia History of GI bleed Pure hypercholesterolemia Ischemic cardiomyopathy Essential hypertension Renal insufficiency Ankylosing spondylitis CAD (coronary artery disease) Overweight (BMI 25.0-29.9) Leg edema Leg swelling Acute systolic heart failure Bradycardia Biliary pleural effusion HTN (hypertension) Ventricular tachyarrhythmia Atherosclerosis of [place] coronary artery of [place] heart without angina pectoris Pulmonary HTN Cardiomyopathy [...] (Auto) 77.3 H, Lymph % (Auto) 7.7L, Kemper % (Auto) 13.0 H, Eos % (Auto) [...] (Auto) 75.1 H, Lymph % (Auto) 8.4L, Kemper % (Auto) 14.7 H, Eos % (Auto) [...] 12/11/24 15:10 IMPRESSION: CHF exacerbation. Reading Location: [facility] 12/13/24 0152 Cosigner Signature (if applicable): CC: Dr. Rigoberto Gould MD~ Signed [facility]04-18-2025 Progress note Author Sukumar Restrepo [facility] Note Date/Time December 12, 2024 3:0 2pm [facility] Medical Records Department [address] [place] [address] Progress Note - Hospitalist 12/12/24 0759 MR#: [id number] Acct: [id number] Name: MAURI QUINONES Rep #:[id number] : 1955 69 From: Sukumar Hansen PCP: Dr. Rigoberto Gould MD Status:ADM I N Location: [place] [address] Reason for Visit Reason for Visit: Diagnoses [...] (Auto) 77.3 H, Lymph % (Auto) 7.7L, Kemper % (Auto) 13.0 H, Eos % (Auto) [...] (Auto) 75.1 H, Lymph % (Auto) 8.4L, Kemper % (Auto) 14.7 H, Eos % (Auto) [...] 12/11/24 15:10 IMPRESSION: CHF exacerbation. Reading Location: [facility] Rhythm Strip Rhythm Strip: A-fib Rate: 90 [...] and patient and denied history of A-fib. child monitor shows A-fib 2. Patient was seen by regulatory compliance coordinator. #8. CAD: Status post CABG (S/P surgery with CARTY to LAD, SVG to OM system, and SVG to PDA in March 2017 at [facility]), if able to tolerate will continue aspirin, [...] intubation status. Charges/Coding Visit Charges Inpatient E&M: 33552 Subs Hosp L2 12/12/24 1502 <Electronically signed by Sukumar Restrepo MD> Cosigner Signature (if applicable): CC: ~ Signed [facility] Work Phone: 1(202) 862-876804-18-2025 Progress note [facility] Medical Records Department [address] [place] [address] Progress Note - Hospitalist 12/12/24 8091 MR#: [id number] Acct: [id number] Name: MAURI QUINONES Rep #:[id number] : 1955 69 From: Sukumar Hansen PCP: Dr. Rigoberto Gould MD Status:ADM I N Location: [place] [address] Reason for Visit Reason for Visit: Diagnoses [...] (Auto) 77.3 H, Lymph % (Auto) 7.7L, Kemper % (Auto) 13.0 H, Eos % (Auto) [...] (Auto) 75.1 H, Lymph % (Auto) 8.4L, Kemper % (Auto) 14.7 H, Eos % (Auto) [...] 12/11/24 15:10 IMPRESSION: CHF exacerbation. Reading Location: [facility] Rhythm Strip Rhythm Strip: A-fib Rate: 90 [...] and patient and denied history of A-fib. child monitor shows A-fib 2. Patient was seen by regulatory compliance coordinator. #8. CAD: Status post CABG (S/P surgery with CARTY to LAD, SVG to OM system, and SVG to PDA in March2017 at [facility]), if able to tolerate will continue aspirin, [...] intubation status. Charges/Coding Visit Charges Inpatient E&M: 64384 Subs Hosp L2 12/12/24 1502 Cosigner Signature (if applicable): CC: ~ Signed [facility]04-18-2025 Progress note Author Jensen Claire [facility] Note Date/Time December 12, 2024 9:1 3am [facility] Medical Records Department [address] [place] [address] Progress Note - Cardiology 12/12/24 0859 MR#: [id number] Acct: [id number] Name: MAURI QUINONES Rep #:[id number] : 1955 69 From: Jensen Claire MD PCP: Dr. Rigoberto Gould MD Status:ADM I N Location: [place] [address] 1 Subjective Subjective Patient is resting comfortably [...] (Auto) 77.3 H, Lymph % (Auto) 7.7L, Kemper % (Auto) 13.0 H, Eos % (Auto) [...] (Auto) 75.1 H, Lymph % (Auto) 8.4L, Kemper % (Auto) 14.7 H, Eos % (Auto) [...] 77.3 H, Lymph % (Auto) 7.7 L, Kemper % (Auto) 13.0 H, Eos % (Auto) [...] 75.1 H, Lymph % (Auto) 8.4 L, Kemper % (Auto) 14.7 H, Eos % (Auto) [...] 12/11/24 15:10 IMPRESSION: CHF exacerbation. Reading Location: [facility] Physical Exam Const alert and oriented x3 [...] The last echocardiogram we have is from [facility] in 2021 and at that time his [...] is available. Charges/Coding Visit Charges Inpatient E&M: 46339 Subs Hosp L2 12/12/24 0913 <Electronically signed by Jensen Claire MD> Cosigner Signature (if applicable): CC: ~ Signed [facility] Work Phone: 1(931) 549-355504-18-2025 Progress note [facility] Medical Records Department [address] [place] [address] Progress Note - Cardiology 12/12/24 0859 MR#: [id number] Acct: [id number] Name: MAURI QUINONES Rep #:[id number] : 1955 69 From: Jensen Claire MD PCP: Dr. Rigoberto Gould MD Status:ADM I N Location: [place] [address] Subjective Subjective Patient is resting comfortably and [...] (Auto) 77.3 H, Lymph % (Auto) 7.7L, Kemper % (Auto) 13.0 H, Eos % (Auto) [...] (Auto) 75.1 H, Lymph % (Auto) 8.4L, Kemper % (Auto) 14.7 H, Eos % (Auto) [...] 77.3 H, Lymph % (Auto) 7.7 L, Kemper % (Auto) 13.0 H, Eos % (Auto) [...] 75.1 H, Lymph % (Auto) 8.4 L, Kemper % (Auto) 14.7 H, Eos % (Auto) [...] 12/11/24 15:10 IMPRESSION: CHF exacerbation. Reading Location: [facility] Physical Exam Const alert and oriented x3 [...] The last echocardiogram we have is from [facility] in 2021 and at that time his [...] is available. Charges/Coding Visit Charges Inpatient E&M: 45822 Subs Hosp L2 12/12/24 0979 Cosigner Signature (if applicable): CC: ~ Signed [facility]04-17-2025 Consult note Author Jensen Claire [facility] Note Date/Time December 11, 2024 6:1 5pm [facility] Medical Records Department [address] [place] [address] Consultation - Cardiology 12/11/24 7035 MR#: [id number] Acct: [id number] Name: MAURI QUINONES Rep #:[id number] : [...] nephrology is been consulted for urgent dialysis. [facility] Medical History C. difficile diarrhea Anemia History of GI bleed Pure hypercholesterolemia Ischemic cardiomyopathy Essential hypertension Renal insufficiency Ankylosing spondylitis CAD (coronary artery disease) Overweight (BMI 25.0-29.9) Leg edema Leg swelling Acute systolic heart failure Bradycardia Biliary pleural effusion HTN (hypertension) Ventricular tachyarrhythmia Atherosclerosis of [place] coronary artery of [place] heart without angina pectoris Pulmonary HTN Cardiomyopathy [...] Applicable: No Charges/Coding Visit Charges Inpatient E&M: 10144 Init Hosp L3 Objective Data Vital Signs: [...] (Auto) 77.3 H, Lymph % (Auto) 7.7L, Kemper % (Auto) 13.0 H, Eos % (Auto) [...] 77.3 H, Lymph % (Auto) 7.7 L, Kemper % (Auto) 13.0 H, Eos % (Auto) [...] 12/11/24 15:10 IMPRESSION: CHF exacerbation. Reading Location: [facility] 12/11/241814 <Electronically signed by Jensen Claire MD> Cosigner Signature (if applicable): CC: Dr. Rigoberto Gould MD~ Signed [facility] Work Phone: 1(992) 246-590404-17-2025 History and physical note Author Mary Jo Granados [facility] Note Date/Time December 11, 2024 5:1 8pm [facility] Medical Records Department [address] [place] [address] H&P Exam - Hospitalist 12/11/24 1652 MR#: [id number] Acct: [id number] Name: MAURI QUINONES Farhana Rep #:[id number] : 1955 69 From: Mary Jo Granaods MD PCP: Dr. Rigoberto Gould MD Status:REG [...] Former tobacco use who presents to the [facility] ED on 12/11/24 with history of [...] and no concern for peaked T waves. [facility] Medical History C. difficile diarrhea Anemia History of GI bleed Pure hypercholesterolemia Ischemic cardiomyopathy Essential hypertension Renal insufficiency Ankylosing spondylitis CAD (coronary artery disease) Overweight (BMI 25.0-29.9) Leg edema Leg swelling Acute systolic heart failure Bradycardia Biliary pleural effusion HTN (hypertension) Ventricular tachyarrhythmia Atherosclerosis of [place] coronary artery of [place] heart without angina pectoris Pulmonary HTN Cardiomyopathy [...] (Auto) 77.3 H, Lymph % (Auto) 7.7L, Kemper % (Auto) 13.0 H, Eos % (Auto) [...] 12/11/24 15:10 IMPRESSION: CHF exacerbation. Reading Location: [facility] Assessment & Plan Assessment/Plan (1) Acute hyperkalemia: [...] Former tobacco use who presents to the [facility] ED on 12/11/24 with history of [...] SVG to PDA in March 2017 at [facility]), if able to tolerate will continue aspirin, [...] 16 minutes. Charges/Coding Visit Charges Inpatient E&M: 51828 Init Hosp L3 Procedures Hospitalists Procedures: 68810 Advncd Care Plan 30 Min 12/11/248 <Electronically signed by Mary Jo Granados MD> Cosigner Signature (if applicable): CC: Dr. Mary Jo Granados MD; Dr. Rigoberto Gould MD~ Signed [facility] Work Phone: 1(674) 262-972504-17-2025 Discharge summary Author Rafarima Felder [facility] Note Date/Time December 11, 2024 4:4 3pm [facility] Medical Records Department [address] [place] [address] Emergency Department Summary 12/11/24 MR#: [id number] Acct: [id number] Name: MAURI QUINONES Rep #:[id number] : [...] similar symptoms: Yes Recent Illness/Hospitalization: No PFSH [facility] Medical History C. difficile diarrhea Anemia History of GI bleed Pure hypercholesterolemia Ischemic cardiomyopathy Essential hypertension Renal insufficiency Ankylosing spondylitis CAD (coronary artery disease) Overweight (BMI 25.0-29.9) Leg edema Leg swelling Acute systolic heart failure Bradycardia Biliary pleural effusion HTN (hypertension) Ventricular tachyarrhythmia Atherosclerosis of [place] coronary artery of [place] heart without angina pectoris Pulmonary HTN Cardiomyopathy [...] 77.3 H Lymph % (Auto) 7.7 L Kemper % (Auto) 13.0 H Eos % (Auto) [...] 12/11/24 15:10 IMPRESSION: CHF exacerbation. Reading Location: [facility] EKG Initial EKG: Attestation: I personally reviewed and interpreted this EKG as follows: Interpretation: Atrial Fibrillation (Rate is 89. There is evidence of right bundle branch block. QRS duration 162 ms. QT duration 128 ms. Kendrick of the right. There is no acute [...] of ischemic cardiomyopathy, Acute hyperkalemia,Hyponatremia Disposition Disposition: [facility] What to do if you have Problems For any increased pain, shortness of breath, bleeding, nausea or vomiting, chestpain, or any unexpected problems, contact your Primary Care Provider. Call [facility] ([phone]) or report to the closest Emergency Room. Call 911 if necessary. 12/11/24 1643 <Electronically signed by Rafa Felder MD> Cosigner Signature (if applicable): CC: Dr. Rigoberto Gould MD ~ Signed [facility] Work Phone: 1(349) 527-684304-17-2025 Discharge summary Author Rafa [facility] Note Date/Time December 11, 2024 4:4 3pm [facility] Medical Records Department [address] [place] [address] Emergency Department Summary 12/11/24 MR#: [id number] Acct: [id number] Name: MARUI QUINONES Rep #:[id number] : 1955 69 [...] effusion HTN (hypertension) Ventricular tachyarrhythmia Atherosclerosis of [place] coronary artery of [place] heart without angina pectoris Pulmonary HTN Cardiomyopathy [...] 77.3 H Lymph % (Auto) 7.7 L Kemper % (Auto) 13.0 H Eos % (Auto) [...] 12/11/24 15:10 IMPRESSION: CHF exacerbation. Reading Location: [facility] EKG Initial EKG: Attestation: I personally reviewed and interpreted this EKG as follows: Interpretation: Atrial Fibrillation (Rate is 89. There is evidence of right bundle branch block. QRS duration 162 ms. QT duration 128 ms. Kendrick of the right. There is no acute [...] Acute hyperkalemia,Hyponatremia Disposition Disposition: Acute Care Hospital [facility] What to do if you have Problems For any increased pain, shortness of breath, bleeding, nausea or vomiting, chestpain, or any unexpected problems, contact your Primary Care Provider. Call [facility] ([phone]) or report to the closest Emergency Room. Call 911 if necessary. 12/11/24 1643 <Electronically signed by Rafa Felder MD> Cosigner Signature (if applicable): CC: Dr. Rigoberto Gould MD ~ Signed [facility] Work Phone: 1(305) 781-895104-17-2025 Consult note [facility] Medical Records Department [address] [place] [address] Consultation - Cardiology 12/11/24 1759 MR#: [id number] Acct: [id number] Name: QUINONESMAURI L Rep #:[id number] : [...] nephrology is been consulted for urgent dialysis. [facility] Medical History C. difficile diarrhea Anemia History of GI bleed Pure hypercholesterolemia Ischemic cardiomyopathy Essential hypertension Renal insufficiency Ankylosing spondylitis CAD (coronary artery disease) Overweight (BMI 25.0-29.9) Leg edema Leg swelling Acute systolic heart failure Bradycardia Biliary pleural effusion HTN (hypertension) Ventricular tachyarrhythmia Atherosclerosis of [place] coronary artery of [place] heart without angina pectoris Pulmonary HTN Cardiomyopathy [...] Applicable: No Charges/Coding Visit Charges Inpatient E&M: 51596 Init Hosp L3 Objective Data Vital Signs: [...] (Auto) 77.3 H, Lymph % (Auto) 7.7L, Kemper % (Auto) 13.0 H, Eos % (Auto) [...] 77.3 H, Lymph % (Auto) 7.7 L, Kemper % (Auto) 13.0 H, Eos % (Auto) [...] 12/11/24 15:10 IMPRESSION: CHF exacerbation. Reading Location: [facility] 12/11/24 181 Cosigner Signature (if applicable): CC: Dr. Rigoberto Gould MD~ Signed [facility]04-17-2025 History and physical note [facility] Medical Records Department [address] [place] [address] H&P Exam - Hospitalist 12/11/24 1652 MR#: [id number] Acct: [id number] Name: MAURI QUINONES Farhana Rep #:[id number] [...] Former tobacco use who presents to the [facility] ED on 12/11/24 with history of [...] and no concern for peaked T waves. [facility] Medical History C. difficile diarrhea Anemia History of GI bleed Pure hypercholesterolemia Ischemic cardiomyopathy Essential hypertension Renal insufficiency Ankylosing spondylitis CAD (coronary artery disease) Overweight (BMI 25.0-29.9) Leg edema Leg swelling Acute systolic heart failure Bradycardia Biliary pleural effusion HTN (hypertension) Ventricular tachyarrhythmia Atherosclerosis of [place] coronary artery of [place] heart without angina pectoris Pulmonary HTN Cardiomyopathy [...] (Auto) 77.3 H, Lymph % (Auto) 7.7L, Kemper % (Auto) 13.0 H, Eos % (Auto) [...] 12/11/24 15:10 IMPRESSION: CHF exacerbation. Reading Location: [facility] Assessment & Plan Assessment/Plan (1) Acute hyperkalemia: [...] Former tobacco use who presents to the [facility] ED on 12/11/24 with history of [...] and SVG to PDA in March2017 at [facility]), if able to tolerate will continue aspirin, [...] 16 minutes. Charges/Coding Visit Charges Inpatient E&M: 28008 Init Hosp L3 Procedures Hospitalists Procedures: 89657 Advncd Care Plan 30 Min 12/11/24 4417 Cosigner Signature (if applicable): CC: Dr. Mary Jo Granados MD; Dr. Rigoberto Gould MD~ Signed [facility]04-17-2025 Discharge summary [facility] Medical Records Department [address] [place] [address] Emergency Department Summary 12/11/24 MR#: [id number] Acct: [id number] Name: MAURI QUINONES Rep #:[id number] : [...] effusion HTN (hypertension) Ventricular tachyarrhythmia Atherosclerosis of [place] coronary artery of [place] heart without angina pectoris Pulmonary HTN Cardiomyopathy [...] 77.3 H Lymph % (Auto) 7.7 L Kemper % (Auto) 13.0 H Eos % (Auto) [...] This is a 20 reviewed interpreted by or at 1520.), Heart and Bony Structures Diagnostic Testing: Clinical Impression(s) from Imaging Studies Chest X-Ray 12/11/24 15:10 IMPRESSION: CHF exacerbation. Reading Location: [facility] EKG Initial EKG: Attestation: I personally reviewed and interpreted this EKG as follows: Interpretation: Atrial Fibrillation (Rate is 89. There is evidence of right bundle branch block. QRS duration 162 ms. QT duration 128 ms. Kendrick of the right. There is no acute [...] Acute hyperkalemia,Hyponatremia Disposition Disposition: Acute Care Hospital [facility] What to do if you have Problems For any increased pain, shortness of breath, bleeding, nausea or vomiting, chestpain, or any unexpected problems, contact your Primary Care Provider. Call [facility] ([phone]) or report tothe closest Emergency Room. Call 911 if necessary. 12/11/24 1643 Cosigner Signature (if applicable): CC: Dr. Rigoberot Gould MD ~ Signed [facility] [facility]04-17-2025 Radiology Diagnostic study note [facility] Imaging Services [address] [place] [address] Chest PA and Lateral MR#: [id number] Acct: [id number] Name: MAURI QUINONES Rep #: [id number] : [id number] M 69 From: Breonna Davis MD PCP: Dr. Rigoberto Gould MD Status: REG E R Study:Chest PA and Lateral Date of Exam: 12/11/24 Exam# [id number] Ordering Dr: Crys Felder MD PROCEDURE: CHEST [...] Felder MD; Dr. Rigoberto Gould MD ~ Military Personnel Specialist: Signed [facility]04-11-2025 Instructions* Patient Instructions* Alexus Mendez APRN.ANGIOGRAPHER - 12/05/2024 1:40 PM EDT 1) Trazodone 50 mg 30 min before bed, dose can be cut in half or increased if we need to 2) Holding Lantus 3) See Dr. Gould 12/29/24 as scheduled 4) Benzonatate 100 mg 3 x day as needed for cough documented in this encounterGood Samaritan Hospital04-11-2025 NoteHNO ID: [id number] Author: ALEXUS MENDEZ APRN.CNP Service: ? Author [...] GARRET (acute kidney injury) 03/24/2019 Ankylosing spondylitis ([facility]) CAD (coronary artery disease) Cellulitis Chronic combined systolic and diastolic CHF (congestive heart failure) ([facility]) 03/24/2019 CKD (chronic kidney disease) stage 3, GFR 30-59 ml/min ([facility]) 03/24/2019 Constipation Diabetes ([facility]) Gout High phosphate levels 03/24/2019 History of [...] NSTEMI (non-ST elevated myocardial infarction) (HCC) 03/12/2017 [facility] admit Osteoarthritis Transition of care performed with sharing of clinical summary 04/08/2019 Admit [facility] 03/21/19-03/22/19 Discharge diagnoses chronic kidney disease with worsening creatinine, acute kidney injury Hypokalemia Toxic encephalopathy secondary to Flexeril overusage Type 2 diabetes Ischemic cardiomyopathy Coronary artery disease Ligamental cervical neck strain and acute Pulmonary hypertension Hypertension Pyuria Preadmit: to [facility] ED with slurred speech, lethargy. PAST [...] 1 tablet by mouth every morning. Insulin Winthrop, Disposable, (BD ULTRA-FINE GOLDY PEN NEEDLE) 32 [...] Smoking status: Never Smo (more content not included)...[facility]04-11-2025 History of Present illness Narrative* Alexus Mendez APRN.[facility] - 12/05/2024 1:28 PM EDT This is [...] kidney disease) stage 3, GFR 30-59 ml/min ([facility]) 03/24/2019 Constipation Diabetes ([facility]) Gout High phosphate levels 03/24/2019 History of [...] valve calcifi NSTEMI (non-ST elevated myocardial infarction) ([facility]) 03/12/2017 [facility] admit Osteoarthritis Transition of care performed with sharing of clinical summary 04/08/2019 Admit [facility] 03/21/19-03/22/19 Discharge diagnoses chronic kidney disease with worsening creatinine, acute kidney injury Hypokalemia Toxic encephalopathy secondary to Flexeril overusage Type 2 diabetes Ischemic cardiomyopathy Coronary artery disease Ligamental cervical neck strain and acute Pulmonary hypertension Hypertension Pyuria Preadmit: to [facility] ED with slurred speech, lethargy. PAST [...] 1 tablet by mouth every morning. Insulin W[place]rop, Disposable, (BD ULTRA-FINE GOLDY PEN NEEDLE) 32 [...] improvement. Alexus Mendez APRN.CNP documented in this encounterGood Samaritan Hospital04-04-2025 Telephone encounter Note * Telephone Encounter - Alexus Mendez APRN.CNP - 11/28/2024 7:54 AM EDT I will order a Z-Chloe, azithromycin 2 tablets today and 1 daily for 4 more days and a steroid taper.Please let me check you next Sunday. Will ask nursing to get you an appointment. [facility]04-04-2025 Miscellaneous Notes* Telephone Encounter - Alexus Mendez APRN.CNP - 11/28/2024 7:54 AM EDT I will order a Z-Chloe, azithromycin 2 tablets today and 1 daily for 4 more days and a steroid taper.Please let me check you next Sunday. Will ask nursing to get you an appointment. documented in this encounterGood Samaritan Hospital04-02-2025 History of Present illness Narrative* Jensen [...] PATIENT PRESENTS WITH AN IMPLANTABLE OR ATTACHED FIELD HAND: No CREATININE: Creatinine Date Value Ref Range [...] 2:12 PM PAGER/CONTACT #: documented in this encounterGood Samaritan Hospital04-02-2025 NoteHNO ID: [id number] Author: JENSEN MENDIETA CT Service: Nuclear Medicine [...] PATIENT PRESENTS WITH AN IMPLANTABLE OR ATTACHED FIELD HAND: No CREATININE: Creatinine Date Value Ref Range [...] 09:20 PATIENT DISCHARGED TO: Ambulatory patient, left [place] department area. Is this a therapy: No A Diagnostic radioactive procedure has taken place, with no further precautions necessary other than routine body substance precautions. More information regarding radiation safety can be found using this link: [email or web address] SIGNATURE: WILLIAMS Duran PATIENT NAME: Mauri Quinones DATE: November 26, 2024 TIME: 2:12 PM [id number] Telephone encounter Note * Telephone Encounter - Aleshia Vázquez - 11/21/2024 1:47 PM EDT Forwarded to Radiology for scheduling [facility]03-28-2025 Miscellaneous Notes* Telephone Encounter - Aleshia [...] please advise. Patient can be reached at #[phone] documented in this encounterGood Samaritan Hospital03-28-2025 Telephone encounter Note * Telephone Encounter - Isabela Rosado RN - 11/21/2024 1:05 PM EDT Spoke with patient and relayed message. Patient verbalized understanding. Please send to radiology for scheduling (Not Tuesdays and due to dialysis) [facility]03-28-2025 Telephone encounter Note* Telephone Encounter - Yessenia Hewitt PA-C - 11/21/2024 1:01 PM EDT Discussed with dr. De La Rosa. Labs are only slightly elevated. He is recommending aspiration with fluid analysis. Orders placed. Yessenia Hewitt PA-C [facility]03-27-2025 Telephone encounter Note* Telephone Encounter - Bryce Landin RN - 11/20/2024 4:41 PM EDT Called and left a detailed voicemail notifying Bernice WEINBERG from [facility] of providers message. Clinic phone number was left in case she had any questions. Bryce Landin RN [facility]03-27-2025 Miscellaneous Notes* Telephone Encounter - Bryce Landin RN - 11/20/2024 4:41 PM EDT Called and left a detailed voicemail notifying Bernice WEINBERG from [facility] of providers message. Clinic phone number was left in case she had any questions. Bryce Landin, RN * Telephone Encounter - Rigoberto Gould MD - 11/20/2024 1:54 PM EDT ok * Telephone Encounter - Farrah Hastings RN - 11/20/2024 12:49 PM EDT Bernice RN from [facility] calls and states that they will be sending out a home health aide to help patient 3 hours a week. Bernice asking if PCP willing to follow orders? Please review and advise, Farrah Hastings RN documented in this encounterGood Samaritan Hospital03-27-2025 Telephone encounter Note * Telephone Encounter - Rigoberto Gould MD - 11/20/2024 1:54 PM EDT ok [facility]03-27-2025 Telephone encounter Note* Telephone Encounter - Farrah Hastings RN - 11/20/2024 12:49 PM EDT Bernice RN from [facility] calls and states that they will be sending out a home health aide to help patient 3 hours a week. Bernice asking if PCP willing to follow orders? Please review and advise, Farrah Hastings RN [facility]03-27-2025 Telephone encounter Note* Telephone Encounter - Lori Pino - 11/20/2024 9:34 AM EDT Patient called in, he got the results of his lab work and was curious what thought, please advise. Patient can be reached at #[phone] [facility]03-21-2025 NoteHNO ID: [id number] Author: NUPUR DE LA ROSA MD Service: [...] GARRET (acute kidney injury) 03/24/2019 Ankylosing spondylitis ([facility]) CAD (coronary artery disease) Cellulitis Chronic combined systolic and diastolic CHF (congestive heart failure) ([facility]) 03/24/2019 CKD (chronic kidney disease) stage 3, GFR 30-59 ml/min ([facility]) 03/24/2019 Constipation Diabetes ([facility]) Gout High phosphate levels 03/24/2019 History of [...] NSTEMI (non-ST elevated myocardial infarction) (HCC) 03/12/2017 [facility] admit Osteoarthritis Transition of care performed with sharing of clinical summary 04/08/2019 Admit [facility] 03/21/19-03/22/19 Discharge diagnoses chronic kidney disease with worsening creatinine, acute kidney injury Hypokalemia Toxic encephalopathy secondary to Flexeril overusage Type 2 diabetes Ischemic cardiomyopathy Coronary artery disease Ligamental cervical neck strain and acute Pulmonary hypertension Hypertension Pyuria Preadmit: to [facility] ED with slurred speech, lethargy. PAST [...] for any surgical int (more content not included)...[facility]03-21-2025 History of Present illness Narrative* Nupur [...] systolic and diastolic CHF (congestive heart failure) ([facility]) 03/24/2019 CKD (chronic kidney disease) stage 3, GFR 30-59 ml/min ([facility]) 03/24/2019 Constipation Diabetes ([facility]) Gout High phosphate levels 03/24/2019 History of [...] valve calcifi NSTEMI (non-ST elevated myocardial infarction) ([facility]) 03/12/2017 [facility] admit Osteoarthritis Transition of care performed with sharing of clinical summary 04/08/2019 Admit [facility] 03/21/19-03/22/19 Discharge diagnoses chronic kidney disease with worsening creatinine, acute kidney injury Hypokalemia Toxic encephalopathy secondary to Flexeril overusage Type 2 diabetes Ischemic cardiomyopathy Coronary artery disease Ligamental cervical neck strain and acute Pulmonary hypertension Hypertension Pyuria Preadmit: to [facility] ED with slurred speech, lethargy. PAST [...] La Rosa M.D. Department of Orthopaedic Surgery [facility] documented in this encounterGood Samaritan Hospital03-21-2025 History of Present illness Narrative* Shaye Polanoc RT(R) - 11/14/2024 9:30 AM EDT Radiology [...] PATIENT PRESENTS WITH AN IMPLANTABLE OR ATTACHED FIELD HAND: No RADIOLOGY DEPARTMENT: General X-ray: Exam(s) Completed: Lower Extremity X- Ray(s): Femur, Right PERIPHERAL IV DATA: Not applicable SIGNED BY: RT Carol(R) November 14, 2024 9:47 AM documented in this encounterGood Samaritan Hospital03-21-2025 NoteHNO ID: [id number] Author: SHAYE POLANCO RT(R) Service: Radiology Author [...] PATIENT PRESENTS WITH AN IMPLANTABLE OR ATTACHED FIELD HAND: No RADIOLOGY DEPARTMENT: General X-ray: Exam(s) Completed: Lower Extremity X-Ray(s): Femur, Right PERIPHERAL IV DATA: Not applicable SIGNED BY: RT Carol(R) November 14, 2024 9:47 AMBellevue [id number] Telephone encounter Note* Telephone Encounter - Lori Pino - 11/11/2024 11:40 AM EDT Patient called back in and has been scheduled. [facility]03-18-2025 Miscellaneous Notes* Telephone Encounter - Lori [...] Rivera PA-C * Telephone Encounter - Isabela Rosado RN [...] to help Please advise documented in this encounterGood Samaritan Hospital03-18-2025 Telephone encounter Note * Telephone Encounter [...] and new femur XRays. Maco Rivera PA-C [facility]03-17-2025 Telephone encounter Note* Telephone Encounter - Maco Rivera PA-C - 11/10/2024 4:58 PM EDT Isabela please ask schedulers to call Ted to help set up an office follow up. Thank you Cara [facility] Work Phone: 1(166) 469-606303-17-2025 Telephone encounter Note* Telephone Encounter - Maco Rivera PA-C - 11/10/2024 3:08 PM EDT I called but still no answer. I will try again today or tomorrow. Maco Rivera PA-C [facility]03-17-2025 Telephone encounter Note* Telephone Encounter - Maco Rivera PA-C - 11/10/2024 2:26 PM EDT I called to talk with Ted but there was no answer. I will try again later today. Maco Rivera PA-C [facility]03-17-2025 Telephone encounter Note* Telephone Encounter - [...] twice a day to help Please advise [facility]03-16-2025 Telephone encounter Note* Telephone Encounter - Candice Mayer RN - 11/09/2024 6:15 PM EDT Patient calling regarding pain at hip replacement. Conferenced to [facility] compressor operator, Martha, to speak with provider reservations specialist for Dr Fields. [facility]03-16-2025 Miscellaneous Notes* Telephone Encounter - Candice Mayer RN - 11/09/2024 6:15 PM EDT Patient calling regarding pain at hip replacement. Conferenced to [facility] compressor operator, Martha, to speak with provider reservations specialist for Dr Fields. documented in this encounterGood Samaritan Hospital03-04-2025 Evaluation note* Diagnosis Onset Date Resolution Status Admit Date Atherosclerosis of [place] ronary artery of [place] heart without angina chronic October 28, 2024 12:52pm DM2 (diabetes mellitus, type 2) log handler luca October 28, 2024 12:52pm Essential hypertension chronic [facility] 2024 12:52pm Ischemic cardiomyopathy chronic M arch 2024 12:52pm Pure hypercholesterolemia chronic October 28, 2024 12:52pm Valvular heart disease chronic [facility] 2024 12:52pm Acute hyperkalemia acute December 11, 2024 4:45pm Acute uremia acute December 11, 2024 4:45pm End-stage renal disease on hemodialysis acute December 11, 2024 4:45pm Fluid overload acute November 4:45pm History of ischemic cardiomyopathy a cute December 11, 2024 4:45pm Hyponatremia acute December 11, 2024 4:45pm Paroxysmal atrial fibrillation acute December 11, 2024 4:45pm [facility] Work Phone: 1(441) 531-850103-04-2025 Evaluation note* Diagnosis Onset Date Resolution Status Admit Date Atherosclerosis of [place] ronary artery of [place] heart without angina chronic October 28, 2024 12:52pm DM2 (diabetes mellitus, type 2) log handler luca October 28, 2024 12:52pm Essential hypertension chronic [facility] 2024 12:52pm Ischemic cardiomyopathy chronic M arch 2024 12:52pm Pure hypercholesterolemia chronic October 28, 2024 12:52pm Valvular heart disease chronic [facility] 2024 12:52pm Acute hyperkalemia acute December 11, [...] Ischemic cardiomyopathy chronic A pril 2024 4:45pm [facility] Work Phone: 1(590) 890-326403-04-2025 Evaluation note* Diagnosis Onset Date Resolution Status Admit Date Atherosclerosis of [place] ronary artery of [place] heart without angina chronic October 28, 2024 12:52pm DM2 (diabetes mellitus, type 2) log handler luca October 28, 2024 12:52pm Essential hypertension chronic [facility] 2024 12:52pm Ischemic cardiomyopathy chronic M arch 2024 12:52pm Pure hypercholesterolemia chronic October 28, 2024 12:52pm Valvular heart disease chronic [facility] 2024 12:52pm Acute hyperkalemia acute December 11, [...] acute December 26, 2024 12:56pm Atherosclerosis of [place] ronary artery of [place] heart without angina chronic December 26, 2024 12:56pm Essential hypertension chronic Ma y 2024 12:56pm Ischemic cardiomyopathy chronic M ay 2024 12:56pm Pure hypercholesterolemia chronic December 26, 2024 12:56pm Valvular heart disease chronic Ma y 2024 12:56pm [facility] Work Phone: 1(299) 488-658102-21-2025 NoteHNO ID: [id number] Author: NUPUR DE LA ROSA MD Service: [...] Acute on chronic diastolic congestive heart failure ([facility]) 07/14/2018 GARRET (acute kidney injury) ([facility]) 03/24/2019 GARRET (acute kidney injury) ([facility]) 03/24/2019 Ankylosing spondylitis ([facility]) CAD (coronary artery disease) Cellulitis Chronic combined systolic and diastolic CHF (congestive heart failure) ([facility]) 03/24/2019 CKD (chronic kidney disease) stage 3, GFR 30-59 ml/min ([facility]) 03/24/2019 Constipation Diabetes ([facility]) Gout High phosphate levels 03/24/2019 History of [...] valve calcifi NSTEMI (non-ST elevated myocardial infarction) ([facility]) 03/12/2017 [facility] admit Osteoarthritis Transition of care performed with sharing of clinical summary 04/08/2019 Admit [facility] 03/21/19-03/22/19 Discharge diagnoses chronic kidney disease with worsening creatinine, acute kidney injury Hypokalemia Toxic encephalopathy secondary to Flexeril overusage Type 2 diabetes Ischemic cardiomyopathy Coronary artery disease Ligamental cervical neck strain and acute Pulmonary hypertension Hypertension Pyuria Preadmit: to [facility] ED with slurred speech, lethargy. PAST [...] radiographs will be suzanne (more content not included)...[facility]02-21-2025 History of Present illness Narrative* Nupur [...] Acute on chronic diastolic congestive heart failure ([facility]) 07/14/2018 GARRET (acute kidney injury) ([facility]) 03/24/2019 GARRET (acute kidney injury) ([facility]) 03/24/2019 Ankylosing spondylitis ([facility]) CAD (coronary artery disease) Cellulitis Chronic combined systolic and diastolic CHF (congestive heart failure) ([facility]) 03/24/2019 CKD (chronic kidney disease) stage 3, GFR 30-59 ml/min ([facility]) 03/24/2019 Constipation Diabetes ([facility]) Gout High phosphate levels 03/24/2019 History of [...] valve calcifi NSTEMI (non-ST elevated myocardial infarction) ([facility]) 03/12/2017 [facility] admit Osteoarthritis Transition of care performed with sharing of clinical summary 04/08/2019 Admit [facility] 03/21/19-03/22/19 Discharge diagnoses chronic kidney disease with worsening creatinine, acute kidney injury Hypokalemia Toxic encephalopathy secondary to Flexeril overusage Type 2 diabetes Ischemic cardiomyopathy Coronary artery disease Ligamental cervical neck strain and acute Pulmonary hypertension Hypertension Pyuria Preadmit: to [facility] ED with slurred speech, lethargy. PAST [...] La Rosa M.D. Department of Orthopaedic Surgery [facility] documented in this encounterGood Samaritan Hospital02-13-2025 Telephone encounter Note * Telephone Encounter - Bryce Landin RN - 10/09/2024 10:06 AM EST Pts called and is notified of providers message. She voices understanding. Bryce Landin RN [facility]02-13-2025 Miscellaneous Notes* Telephone Encounter - Bryce [...] Cantu LPN - 10/08/2024 4:47 PM EST [facility] sends fax stating that Ammonium lactate lotion should be changed to cream. Called to Yun villanueva message to call and speak with nurse. Was patient able to garbage pick up man prescription of do they in fact need this changed? documented in this encounterGood Samaritan Hospital02-13-2025 Telephone encounter Note * Telephone Encounter - Alexus Mendez APRN.CNP - 10/09/2024 8:00 AM EST Creme was ordered. [facility]02-12-2025 Telephone encounter Note* Telephone Encounter - [...] Landin RN October 08, 2024 6:05 PM [facility]02-12-2025 Telephone encounter Note* Telephone Encounter - Alicia Cantu LPN - 10/08/2024 4:47 PM EST [facility] sends fax stating that Ammonium lactate lotion should be changed to cream. Called to Yun phillips to call and speak with nurse. Was patient able to garbage pick up man prescription of do they in fact need this changed? [facility]02-11-2025 Instructions* Patient Instructions* Alexus Mendez APRN.CNP - 10/07/2024 3:14 PM EST 1) Hydroxyzine 25 mg up to every 6 hours as needed for itching 2) Ammonium Lactate 12% daily for itching 3) Dr. Gould to see you 12/29/24 documented in this encounterGood Samaritan Hospital02-11-2025 NoteHNO ID: [id number] Author: ALEXUS MENDEZ APRN.ANGIOGRAPHER Service: ? Author Type: Nurse Practitioner Type: [...] Acute on chronic diastolic congestive heart failure ([facility]) 07/14/2018 GARRET (acute kidney injury) ([facility]) 03/24/2019 GARRET (acute kidney injury) ([facility]) 03/24/2019 Ankylosing spondylitis ([facility]) CAD (coronary artery disease) Cellulitis Chronic combined systolic and diastolic CHF (congestive heart failure) ([facility]) 03/24/2019 CKD (chronic kidney disease) stage 3, GFR 30-59 ml/min ([facility]) 03/24/2019 Constipation Diabetes ([facility]) Gout High phosphate levels 03/24/2019 History of [...] valve calcifi NSTEMI (non-ST elevated myocardial infarction) ([facility]) 03/12/2017 [facility] admit Osteoarthritis Transition of care performed with sharing of clinical summary 04/08/2019 Admit [facility] 03/21/19-03/22/19 Discharge diagnoses chronic kidney disease with worsening creatinine, acute kidney injury Hypokalemia Toxic encephalopathy secondary to Flexeril overusage Type 2 diabetes Ischemic cardiomyopathy Coronary artery disease Ligamental cervical neck strain and acute Pulmonary hypertension Hypertension Pyuria Preadmit: to [facility] ED with slurred speech, lethargy. PAST [...] 1 tablet by mouth every morning. Insulin [place], Disposable, (BD ULTRA-FINE GOLDY PEN NEEDLE) 32 [...] PHYSICAL EXAM: Physical Exam (more content not included)...[facility]02-11-2025 History of Present illness Narrative* Alexus Mendez APRN.ANGIOGRAPHER - 10/07/2024 3:03 PM EST This is [...] Acute on chronic diastolic congestive heart failure ([facility]) 07/14/2018 GARRET (acute kidney injury) ([facility]) 03/24/2019 GARRET (acute kidney injury) ([facility]) 03/24/2019 Ankylosing spondylitis ([facility]) CAD (coronary artery disease) Cellulitis Chronic combined systolic and diastolic CHF (congestive heart failure) ([facility]) 03/24/2019 CKD (chronic kidney disease) stage 3, GFR 30-59 ml/min ([facility]) 03/24/2019 Constipation Diabetes ([facility]) Gout High phosphate levels 03/24/2019 History of [...] NSTEMI (non-ST elevated myocardial infarction) (HCC) 03/12/2017 [facility] admit Osteoarthritis Transition of care performed with sharing of clinical summary 04/08/2019 Admit [facility] 03/21/19-03/22/19 Discharge diagnoses chronic kidney disease with worsening creatinine, acute kidney injury Hypokalemia Toxic encephalopathy secondary to Flexeril overusage Type 2 diabetes Ischemic cardiomyopathy Coronary artery disease Ligamental cervical neck strain and acute Pulmonary hypertension Hypertension Pyuria Preadmit: to [facility] ED with slurred speech, lethargy. PAST [...] 1 tablet by mouth every morning. Insulin [place], Disposable, (BD ULTRA-FINE GOLDY PEN NEEDLE) 32 [...] as needed for worsening/no improvement. Alexus Mendez APRN.ANGIOGRAPHER documented in this encounterGood Samaritan Hospital02-10-2025 Telephone encounter Note * Telephone Encounter - Aleshia Vázquez - 10/06/2024 12:48 PM EST Patient scheduled with Dr De La Rosa on 10/08/2024 [facility]02-10-2025 Miscellaneous Notes* Telephone Encounter - Aleshia [...] Rosa, no reason given. documented in this encounterGood Samaritan Hospital02-10-2025 Telephone encounter Note * Telephone Encounter - Li Bunch - 10/06/2024 11:53 AM EST Per , he did speak to the patient. Please offer one of the open slots on 10/08. [facility]02-10-2025 Telephone encounter Note* Telephone Encounter - [...] Please advise when to eliza pt Laura Ewing [facility]02-10-2025 Telephone encounter Note* Telephone Encounter - Li Bunch - 10/06/2024 9:21 AM EST Patient called for an appt with Dr. De La Rosa, no reason given. [facility]02-07-2025 NoteHNO ID: [id number] Author: NUPUR DE LA ROSA MD Service: [...] I have offered him a prescription of Milton and recommended that he return to the [...] and notify patient. Nupur De La Rosa, [facility]02-07-2025 History of Present illness Narrative* Nupur De [...] I have offered him a prescription of Milton and recommended that he return to the [...] De La Rosa MD documented in this encounterGood [facility] Telephone encounter Note * Telephone Encounter - Isabela Stahl RN - 10/03/2024 6:50 PM EST Patient calling regarding pain medication regimen. Transferred to [facility] [employer] Front Office [employer] [facility] reservations specialist provider for orthopedics. [facility]02-07-[facility]25 Miscellaneous Notes* Telephone Encounter - Isabela Stahl RN - 10/03/2024 6:50 PM EST Patient calling regarding pain medication regimen. Transferred to [facility] [employer] Front Office [employer] [facility] reservations specialist provider for orthopedics. documented in this encounterGood Samaritan Hospital01-27-2025 NoteHNO ID: [id number] Author: MACO RIVERA PA-C Service: ? Author Type: Physician Clinical Education Consultant Type: Progress Notes Filed: 09/22/2024 16:18 Note [...] Complication, With Long-Term Current Use of Insulin (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) Pvd (Peripheral Vascular Disease) ([facility]) Chronic Combined Systolic and Diastolic Chf (Congestive Heart Failure) (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) Osteopenia, Senile Other Fracture of Right Femur, Initial Encounter for Closed Fracture ([facility]) Blood Loss Anemia Johny (Obstructive Sleep Apnea) Thoracic Compression Fracture, Closed, Initial Encounter ([facility]) Esrd (End Stage Renal Disease) On Dialysis ([facility]) Fracture, Femur, Supracondylar, Right, Open Type I Or II, Initial Encounter ([facility]) Abnormal Ekg Chronic Kidney Disease (Ckd), Stage V ([facility]) Hx of Cabg Preoperative Examination PAST MEDICAL HISTORY Diagnosis Date Acute on chronic diastolic congestive heart failure ([facility]) 07/14/2018 GARRET (acute kidney injury) ([facility]) 03/24/2019 GARRET (acute kidney injury) ([facility]) 03/24/2019 Ankylosing spondylitis ([facility]) CAD (coronary artery disease) Cellulitis Chronic combined systolic and diastolic CHF (congestive heart failure) ([facility]) 03/24/2019 CKD (chronic kidney disease) stage 3, GFR 30-59 ml/min ([facility]) 03/24/2019 Constipation Diabetes ([facility]) Gout High phosphate levels 03/24/2019 History of [...] valve calcifi NSTEMI (non-ST elevated myocardial infarction) ([facility]) 03/12/2017 [facility] admit Osteoarthritis Transition of care performed with sharing of clinical summary 04/08/2019 Admit [facility] 03/21/19-03/22/19 Discharge diagnoses chronic kidney disease with worsening creatinine, acute kidney injury Hypokalemia Toxic encephalopathy secondary to Flexeril overusage Type 2 diabetes Ischemic cardiomyopathy Coronary artery disease Ligamental cervical neck strain and acute Pulmonary hypertension Hypertension Pyuria Preadmit: to [facility] ED with slurred speech, lethargy. PAST [...] [facility] (more content not included)...[facility]01-27-2025 History of Present illness Narrative* Maco [...] Complication, With Long-Term Current Use of Insulin (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) Chronic Combined Systolic and Diastolic Chf (Congestive Heart Failure) (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) Osteopenia, Senile Other Fracture of Right Femur, Initial Encounter for Closed Fracture ([facility]) Blood Loss Anemia Johny (Obstructive Sleep Apnea) Thoracic Compression Fracture, Closed, Initial Encounter ([facility]) Esrd (End Stage Renal Disease) On Dialysis ([facility]) Fracture, Femur, Supracondylar, Right, Open Type I Or II, Initial Encounter ([facility]) Abnormal Ekg Chronic Kidney Disease (Ckd), Stage V ([facility]) Hx of Cabg Preoperative Examination PAST MEDICAL HISTORY Diagnosis Date Acute on chronic diastolic congestive heart failure ([facility]) 07/14/2018 GARRET (acute kidney injury) ([facility]) 03/24/2019 GARRET (acute kidney injury) ([facility]) 03/24/2019 Ankylosing spondylitis ([facility]) CAD (coronary artery disease) Cellulitis Chronic combined systolic and diastolic CHF (congestive heart failure) ([facility]) 03/24/2019 CKD (chronic kidney disease) stage 3, GFR 30-59 ml/min ([facility]) 03/24/2019 Constipation Diabetes ([facility]) Gout High phosphate levels 03/24/2019 History of [...] valve calcifi NSTEMI (non-ST elevated myocardial infarction) ([facility]) 03/12/2017 [facility] admit Osteoarthritis Transition of care performed with sharing of clinical summary 04/08/2019 Admit [facility] 03/21/19-03/22/19 Discharge diagnoses chronic kidney disease with worsening creatinine, acute kidney injury Hypokalemia Toxic encephalopathy secondary to Flexeril overusage Type 2 diabetes Ischemic cardiomyopathy Coronary artery disease Ligamental cervical neck strain and acute Pulmonary hypertension Hypertension Pyuria Preadmit: to [facility] ED with slurred speech, lethargy. PAST [...] 1 tablet by mouth every morning. Insulin [place], Disposable, (BD ULTRA-FINE GOLDY PEN NEEDLE) 32 [...] Z96.659) Instability of prosthetic knee, initial encounter ([facility]) ([facility]) (primary encounter diagnosis) (M62.81) Weakness of right [...] 2024 TIME: 2:28 PM documented in this encounterGood Samaritan Hospital01-27-2025 History of Present illness Narrative* Stormy [...] PATIENT PRESENTS WITH AN IMPLANTABLE OR ATTACHED FIELD HAND: No RADIOLOGY DEPARTMENT: General X-ray: Exam(s) Completed: Pelvis X-Ray: Pelvis General AP Lower Extremity X-Ray(s): Femur, Right PERIPHERAL IV DATA: Not applicable SIGNED BY: Robert Maxwell September 22, 2024 1:57 PM documented in this encounterGood Samaritan Hospital01-27-2025 NoteHNO ID: [id number] Author: STORMY NOLAN Tech Service: ? Author Type: Wellness Guide Type: Progress Notes Filed: 09/22/2024 13:57 Note [...] PATIENT PRESENTS WITH AN IMPLANTABLE OR ATTACHED FIELD HAND: No RADIOLOGY DEPARTMENT: General X-ray: Exam(s) Completed: Pelvis X-Ray: Pelvis General AP Lower Extremity X-Ray(s): Femur, Right PERIPHERAL IV DATA: Not applicable SIGNED BY: Robert Maxwell September 22, 2024 1:57 PMBelle[facility] [id number] Instructions* Patient Instructions* Alexus Mendez APRN.CNP - 09/04/2024 8:26 AM EST 1) Zofran ordered every 8 hours as needed for nausea and vomiting 2) Ok for acetaminophen as needed 3) See Dr. Gould in December as scheduled Consider holding Bumex if not able to get fluids in or having diarrhea/ vomiting documented in this encounterGood Samaritan Hospital01-09-2025 NoteHNO ID: [id number] Author: ALEXUS MENDEZ APRN.CNP Service: ? Author [...] failure (HCC) 07/14/2018 GARRET (acute kidney injury) ([facility]) 03/24/2019 GARRET (acute kidney injury) ([facility]) 03/24/2019 Ankylosing spondylitis ([facility]) CAD (coronary artery disease) Cellulitis Chronic combined systolic and diastolic CHF (congestive heart failure) ([facility]) 03/24/2019 CKD (chronic kidney disease) stage 3, GFR 30-59 ml/min ([facility]) 03/24/2019 Constipation Diabetes ([facility]) Gout High phosphate levels 03/24/2019 History of [...] NSTEMI (non-ST elevated myocardial infarction) (HCC) 03/12/2017 [facility] admit Osteoarthritis Transition of care performed with sharing of clinical summary 04/08/2019 Admit [facility] 03/21/19-03/22/19 Discharge diagnoses chronic kidney disease with worsening creatinine, acute kidney injury Hypokalemia Toxic encephalopathy secondary to Flexeril overusage Type 2 diabetes Ischemic cardiomyopathy Coronary artery disease Ligamental cervical neck strain and acute Pulmonary hypertension Hypertension Pyuria Preadmit: to [facility] ED with slurred speech, lethargy. PAST [...] 1 tablet by mouth every morning. Insulin Winthrop, Disposable, (BD ULTRA-FINE GOLDY PEN NEEDLE) 32 [...] Mother Diabetes Mother H (more content not included)...[facility]01-09-2025 History of Present illness Narrative* Alexus Mendez, [place] - 09/04/2024 8:10 AM EST This is [...] systolic and diastolic CHF (congestive heart failure) ([facility]) 03/24/2019 CKD (chronic kidney disease) stage 3, GFR 30-59 ml/min ([facility]) 03/24/2019 Constipation Diabetes ([facility]) Gout High phosphate levels 03/24/2019 History of [...] valve calcifi NSTEMI (non-ST elevated myocardial infarction) ([facility]) 03/12/2017 [facility] admit Osteoarthritis Transition of care performed with sharing of clinical summary 04/08/2019 Admit [facility] 03/21/19-03/22/19 Discharge diagnoses chronic kidney disease with worsening creatinine, acute kidney injury Hypokalemia Toxic encephalopathy secondary to Flexeril overusage Type 2 diabetes Ischemic cardiomyopathy Coronary artery disease Ligamental cervical neck strain and acute Pulmonary hypertension Hypertension Pyuria Preadmit: to [facility] ED with slurred speech, lethargy. PAST [...] 1 tablet by mouth every morning. Insulin W[place]rop, Disposable, (BD ULTRA-FINE GOLDY PEN NEEDLE) 32 [...] as needed for worsening/no improvement. Alexus Mendez APRN.ANGIOGRAPHER documented in this encounterGood Samaritan Hospital01-08-2025 Telephone encounter Note * Telephone Encounter - Rigoberto Gould MD - 09/03/2024 3:23 PM EST Agree with Er. She would just send him tomorrow if he came in. [facility]01-08-2025 Miscellaneous Notes* Telephone Encounter - Rigoberto [...] Suppan at 8 am. documented in this encounterGood Samaritan Hospital01-08-2025 Telephone encounter Note * Telephone Encounter [...] tomorrow with J Suppan at 8 am. [facility]01-06-2025 Telephone encounter Note* Telephone Encounter - Bryce Landin RN - 09/01/2024 2:07 PM EST Sent message to Pt in [facility] as he asked. [facility]01-06-2025 Miscellaneous Notes* Telephone Encounter - Bryce Landin RN - 09/01/2024 2:07 PM EST Sent message to Pt in [employer] as he asked. * Telephone Encounter - [...] Please call and advise. documented in this encounterGood Samaritan Hospital01-06-2025 Telephone encounter Note * Telephone Encounter - Rigoberto Gould MD - 09/01/2024 1:57 PM EST Not much otc counter. Brat diet and fluids, if continues or worsens, needs seen [facility]01-06-2025 Telephone encounter Note* Telephone Encounter - [...] he could eat. Please call and advise. [facility]12-30-2024 Telephone encounter Note* Telephone Encounter - Luciana Ferguson - 08/25/2024 2:00 PM EST Lvm for patient to call back and schedule with Cara on sunday [facility]12-30-2024 Miscellaneous Notes* Telephone Encounter - Luciana Ferguson - 08/25/2024 2:00 PM EST Lvm for patient to call back and schedule with Cara on sunday * Telephone Encounter - Isabela Rosado RN - 08/25/2024 1:43 PM EST Patient calling with pain between right hip and knee Please call pt and offer Friday 09/01 with Cara documented in this encounterGood Samaritan Hospital12-30-2024 Telephone encounter Note * Telephone Encounter - Isabela Rosado RN - 08/25/2024 1:43 PM EST Patient calling with pain between right hip and knee Please call pt and offer Friday 09/01 with Cara [facility]12-17-2024 Telephone encounter Note* Telephone Encounter - Aleshia Vázquez - 08/12/2024 3:06 PM EST Spoke with patient and he states he will talk to his and call back Aleshia Vázquez [facility]12-17-2024 Miscellaneous Notes* Telephone Encounter - Aleshia [...] 12, 2024 11:23 AM documented in this encounterGood Samaritan Hospital12-17-2024 Telephone encounter Note * Telephone Encounter - Isabela Rosado RN - 08/12/2024 11:29 AM EST Pt needs an appt before refills are ok'd [facility]12-17-2024 Telephone encounter Note* Telephone Encounter - [...] Luciana Ferguson August 12, 2024 11:23 AM [facility]11-19-2024 Telephone encounter Note* Telephone Encounter - Garrison Olmedo MA - 07/15/2024 3:02 PM EST Patient was made aware of the results. Patient verbalizes understanding. Garrison Olmedo Ma [facility]11-19-2024 Miscellaneous Notes* Telephone Encounter - Garrison [...] are managed by dialysis. documented in this encounterGood Samaritan Hospital11-19-2024 Telephone encounter Note * Telephone Encounter [...] All other studies are managed by dialysis. [facility]11-08-2024 Telephone encounter Note* Telephone Encounter - Cristina Zamudio APRN.CNP - 07/04/2024 5:55 PM EST Duplicate and already sent in today. Cristina Zamudio APRN.CNP [facility] Work Phone: 1(757) 426-929011-08-2024 Miscellaneous Notes* Telephone Encounter - Cristina Zamudio [...] 04, 2024 12:16 PM documented in this encounterGood Samaritan Hospital11-08-2024 Telephone encounter Note * Telephone Encounter [...] Swain RN July 04, 2024 12:16 PM [facility]11-06-2024 Telephone encounter Note* Telephone Encounter - Farrah Hastings RN - 07/02/2024 8:59 AM EST Patient calls to see the status of below. Patient notified that medication was sent to mail away pharmacy. Patient asking if provider sent in prescription for Cialis to [facility]? Please review and advise, Farrah Hastings RN [facility]11-06-2024 Miscellaneous Notes* Telephone Encounter - Farrah Hastings RN - 07/02/2024 8:59 AM EST Patient calls to see the status of below. Patient notified that medication was sent to mail away pharmacy. Patient asking if provider sent in prescription for Cialis to [facility]? Please review and advise, Farrah Hastings RN * Telephone Encounter - Alexus Mendez APRN.CNP - 06/30/2024 5:43 PM EST Lantus Solostar pens Ordered JERAMY * Telephone Encounter - Garrison Olmedo MA - 06/30/2024 5:16 PM EST Fax received from [facility] that Lantus Solostar is not covered and needs to get vials. Spoke with patient and he will not use vials, asking for the prescription to be run through his mail order to see if it will be covered as he has two insurance coverages. Garrison Olmedo MA June 30, 2024 5:23 PM documented in this encounterGood Samaritan Hospital11-04-2024 Telephone encounter Note * Telephone Encounter - Alexus Mendez APRN.CNP - 06/30/2024 5:43 PM EST Lantus Solostar pens Ordered JERAMY [facility]11-04-2024 Telephone encounter Note* Telephone Encounter - Garrison Olmedo MA - 06/30/2024 5:16 PM EST Fax received from [facility] that Lantus Solostar is not covered and needs to get vials. Spoke with patient and he will not use vials, asking for the prescription to be run through his mail order to see if it will be covered as he has two insurance coverages. Garrison Olmedo MA June 30, 2024 5:23 PM [facility]11-04-2024 Instructions* Patient Instructions* Alexus eMndez APRN.CNP - 06/30/2024 1:21 PM EST 1) [facility] Follow up in 6 months documented in this encounterGood Samaritan Hospital11-04-2024 NoteHNO ID: [id number] Author: ALEXUS MENDEZ APRN.CNP Service: ? Author [...] Acute on chronic diastolic congestive heart failure ([facility]) 07/14/2018 GARRET (acute kidney injury) ([facility]) 03/24/2019 GARRET (acute kidney injury) ([facility]) 03/24/2019 Ankylosing spondylitis ([facility]) CAD (coronary artery disease) Cellulitis Chronic combined systolic and diastolic CHF (congestive heart failure) ([facility]) 03/24/2019 CKD (chronic kidney disease) stage 3, GFR 30-59 ml/min ([facility]) 03/24/2019 Constipation Diabetes ([facility]) Gout High phosphate levels 03/24/2019 History of [...] valve calcifi NSTEMI (non-ST elevated myocardial infarction) ([facility]) 03/12/2017 [facility] admit Osteoarthritis Transition of care performed with sharing of clinical summary 04/08/2019 Admit [facility] 03/21/19-03/22/19 Discharge diagnoses chronic kidney disease with worsening creatinine, acute kidney injury Hypokalemia Toxic encephalopathy secondary to Flexeril overusage Type 2 diabetes Ischemic cardiomyopathy Coronary artery disease Ligamental cervical neck strain and acute Pulmonary hypertension Hypertension Pyuria Preadmit: to [facility] ED with slurred speech, lethargy. PAST [...] No. Home sugar checks: (more content not included)...[facility] 06-30-2024 History of Present illness Narrative* Alexus Mendez APRN.[facility] - 06/30/2024 12:56 PM EST This is [...] Acute on chronic diastolic congestive heart failure ([facility]) 07/14/2018 GARRET (acute kidney injury) ([facility]) 03/24/2019 GARRET (acute kidney injury) ([facility]) 03/24/2019 Ankylosing spondylitis ([facility]) CAD (coronary artery disease) Cellulitis Chronic combined systolic and diastolic CHF (congestive heart failure) ([facility]) 03/24/2019 CKD (chronic kidney disease) stage 3, GFR 30-59 ml/min ([facility]) 03/24/2019 Constipation Diabetes ([facility]) Gout High phosphate levels 03/24/2019 History of [...] NSTEMI (non-ST elevated myocardial infarction) (HCC) 03/12/2017 [facility] admit Osteoarthritis Transition of care performed with sharing of clinical summary 04/08/2019 Admit [facility] 03/21/19-03/22/19 Discharge diagnoses chronic kidney disease with worsening creatinine, acute kidney injury Hypokalemia Toxic encephalopathy secondary to Flexeril overusage Type 2 diabetes Ischemic cardiomyopathy Coronary artery disease Ligamental cervical neck strain and acute Pulmonary hypertension Hypertension Pyuria Preadmit: to [facility] ED with slurred speech, lethargy. PAST [...] Behavior normal. LABS: check labs at dialysis- [facility] ASSESSMENT/PLAN: 1. Ischemic cardiomyopathy - ICD9: [...] complication, with long-term current use of insulin ([facility]) - ICD9: 250.00, V58.67, ICD10: E11.9, Z79.4 - Control undetermined, due for labs - Continue current medications - LANTUS SOLOSTAR U-100 INSULIN 100 UNIT/ML (3 ML) SUBCUTANEOUS PEN switched from Levemir (don't manufacture- not taking insulin - PEN NEEDLE, DIABETIC 32 GAUGE X 10. PVD (peripheral vascular disease) ([facility]) - ICD9: 443.9, ICD10: I73.9 Stable 11. Hypertension, essential - ICD9: 401.9, ICD10: I10 - Controlled - Recommend home blood pressure monitoring, to bring results to next visit - Encouraged sodium restriction, DASH or Mediterranean diet - Recommend regular aerobic exercise 12. ESRD (end stage renal disease) on dialysis ([facility]) - ICD9: 585.6, V45.11, ICD10: N18.6, Z99.2 - eGFR: Due for labs - Continue dialysis Discussed treatment plan and patient voices understanding. Patient's questions answered appropriately. Medications and potential side effects were discussed and patient voices understanding. Return to the office as scheduled or as needed for worsening/no improvement. Alexus Mendez APRN.JOCELYN documented in this encounterGood Samaritan Hospital10-30-2024 NoteHNO ID: [id number] Author: NUPUR DE LA ROSA MD Service: [...] Acute on chronic diastolic congestive heart failure ([facility]) 07/14/2018 GARRET (acute kidney injury) ([facility]) 03/24/2019 GARRET (acute kidney injury) ([facility]) 03/24/2019 Ankylosing spondylitis ([facility]) CAD (coronary artery disease) Cellulitis Chronic combined systolic and diastolic CHF (congestive heart failure) ([facility]) 03/24/2019 CKD (chronic kidney disease) stage 3, GFR 30-59 ml/min ([facility]) 03/24/2019 Constipation Diabetes ([facility]) Gout High phosphate levels 03/24/2019 History of [...] valve calcifi NSTEMI (non-ST elevated myocardial infarction) ([facility]) 03/12/2017 [facility] admit Osteoarthritis Transition of care performed with sharing of clinical summary 04/08/2019 Admit [facility] 03/21/19-03/22/19 Discharge diagnoses chronic kidney disease with worsening creatinine, acute kidney injury Hypokalemia Toxic encephalopathy secondary to Flexeril overusage Type 2 diabetes Ischemic cardiomyopathy Coronary artery disease Ligamental cervical neck strain and acute Pulmonary hypertension Hypertension Pyuria Preadmit: to [facility] ED with slurred speech, lethargy. PAST [...] ANKLE 3V AP/LAT/OBL RT / PROCEDURE REASON: [id number] * * * * Physician Interpretation * [...] similar in appearance to the previous study Military Personnel Specialist: CARMELA Transcribe Date (more content not included)...[facility] 06-25-2024 History of Present illness Narrative* [...] Acute on chronic diastolic congestive heart failure ([facility]) 07/14/2018 GARRET (acute kidney injury) ([facility]) 03/24/2019 GARRET (acute kidney injury) ([facility]) 03/24/2019 Ankylosing spondylitis ([facility]) CAD (coronary artery disease) Cellulitis Chronic combined systolic and diastolic CHF (congestive heart failure) ([facility]) 03/24/2019 CKD (chronic kidney disease) stage 3, GFR 30-59 ml/min ([facility]) 03/24/2019 Constipation Diabetes ([facility]) Gout High phosphate levels 03/24/2019 History of [...] valve calcifi NSTEMI (non-ST elevated myocardial infarction) ([facility]) 03/12/2017 [facility] admit Osteoarthritis Transition of care performed with sharing of clinical summary 04/08/2019 Admit [facility] 03/21/19-03/22/19 Discharge diagnoses chronic kidney disease with worsening creatinine, acute kidney injury Hypokalemia Toxic encephalopathy secondary to Flexeril overusage Type 2 diabetes Ischemic cardiomyopathy Coronary artery disease Ligamental cervical neck strain and acute Pulmonary hypertension Hypertension Pyuria Preadmit: to [facility] ED with slurred speech, lethargy. PAST [...] ANKLE 3V AP/LAT/OBL RT / PROCEDURE REASON: [id number] * * * * Physician Interpretation * [...] similar in appearance to the previous study Military Personnel Specialist: CARMELA Transcribe Date/Time: Jun 26 2024 10:30A [...] La Rosa M.D. Department of Orthopaedic Surgery [facility] documented in this encounterGood Samaritan Hospital10-30-2024 History of Present illness Narrative* Stormy [...] PATIENT PRESENTS WITH AN IMPLANTABLE OR ATTACHED FIELD HAND: No RADIOLOGY DEPARTMENT: General X-ray: Exam(s) Completed: Lower Extremity X- Ray(s): Ankle, Right and Wt. Bearing PERIPHERAL IV DATA: Not applicable SIGNED BY: Robert Maxwell June 25, 2024 11:20 AM documented in this encounterGood Samaritan Hospital10-30-2024 NoteHNO ID: [id number] Author: STORMY NOLAN Tech Service: ? Author Type: Wellness Guide Type: Progress Notes Filed: 06/25/2024 11:20 Note [...] PATIENT PRESENTS WITH AN IMPLANTABLE OR ATTACHED FIELD HAND: No RADIOLOGY DEPARTMENT: General X-ray: Exam(s) Completed: Lower Extremity X-Ray(s): Ankle, Right and Wt. Bearing PERIPHERAL IV DATA: Not applicable SIGNED BY: Robert Maxwell June 25, 2024 11:20 [id number] NoteHNO ID: [id number] Author: NUPUR DE LA ROSA MD Service: [...] failure (HCC) 07/14/2018 GARRET (acute kidney injury) ([facility]) 03/24/2019 GARRET (acute kidney injury) (HCC) 03/24/2019 Ankylosing spondylitis (HCC) CAD (coronary artery disease) Cellulitis Chronic combined systolic and diastolic CHF (congestive heart failure) ([facility]) 03/24/2019 CKD (chronic kidney disease) stage 3, GFR 30-59 ml/min ([facility]) 03/24/2019 Constipation Diabetes ([facility]) Gout High phosphate levels 03/24/2019 History of [...] valve calcifi NSTEMI (non-ST elevated myocardial infarction) ([facility]) 03/12/2017 [facility] admit Osteoarthritis Transition of care performed with sharing of clinical summary 04/08/2019 Admit [facility] 03/21/19-03/22/19 Discharge diagnoses chronic kidney disease with worsening creatinine, acute kidney injury Hypokalemia Toxic encephalopathy secondary to Flexeril overusage Type 2 diabetes Ischemic cardiomyopathy Coronary artery disease Ligamental cervical neck strain and acute Pulmonary hypertension Hypertension Pyuria Preadmit: to [facility] ED with slurred speech, lethargy. PAST [...] La Rosa M.D. Department of Orthopaedic Surgery [facility]09-23-2024 History of Present illness Narrative* Nupur [...] Acute on chronic diastolic congestive heart failure ([facility]) 07/14/2018 GARRET (acute kidney injury) ([facility]) 03/24/2019 GARRET (acute kidney injury) ([facility]) 03/24/2019 Ankylosing spondylitis ([facility]) CAD (coronary artery disease) Cellulitis Chronic combined systolic and diastolic CHF (congestive heart failure) ([facility]) 03/24/2019 CKD (chronic kidney disease) stage 3, GFR 30-59 ml/min ([facility]) 03/24/2019 Constipation Diabetes ([facility]) Gout High phosphate levels 03/24/2019 History of [...] valve calcifi NSTEMI (non-ST elevated myocardial infarction) ([facility]) 03/12/2017 [facility] admit Osteoarthritis Transition of care performed with sharing of clinical summary 04/08/2019 Admit [facility] 03/21/19-03/22/19 Discharge diagnoses chronic kidney disease with worsening creatinine, acute kidney injury Hypokalemia Toxic encephalopathy secondary to Flexeril overusage Type 2 diabetes Ischemic cardiomyopathy Coronary artery disease Ligamental cervical neck strain and acute Pulmonary hypertension Hypertension Pyuria Preadmit: to [facility] ED with slurred speech, lethargy. PAST [...] La Rosa M.D. Department of Orthopaedic Surgery [facility] documented in this encounterGood Samaritan Hospital09-11-2024 History of Present illness Narrative* Liat [...] PATIENT PRESENTS WITH AN IMPLANTABLE OR ATTACHED FIELD HAND: No RADIOLOGY DEPARTMENT: General X-ray: Exam(s) Completed: Lower Extremity X- Ray(s): Ankle, Right and Wt. Bearing PERIPHERAL IV DATA: Not applicable SIGNED BY: TIKI Dietz) May 07, 2024 1:31 PM documented in this encounterGood Samaritan Hospital09-11-2024 NoteHNO ID: [id number] Author: LIAT BURGER RT(R) Service: ? Author [...] PATIENT PRESENTS WITH AN IMPLANTABLE OR ATTACHED FIELD HAND: No RADIOLOGY DEPARTMENT: General X-ray: Exam(s) Completed: Lower Extremity X-Ray(s): Ankle, Right and Wt. Bearing PERIPHERAL IV DATA: Not applicable SIGNED BY: Liat Burger RT(R) May 07, 2024 1:31 [id number] NoteHNO ID: [id number] Author: NUPUR DE LA ROSA MD Service: [...] again noted. Impression: IMPRESSION: Navicular stress fracture. Military Personnel Specialist: PSCLeslye Transcribe Date/Time: May 10 2024 3:02P [...] repeat clinical evaluation Nupur De La Rosa, [facility]09-11-2024 History of Present illness Narrative* Nupur De [...] again noted. Impression: IMPRESSION: Navicular stress fracture. Military Personnel Specialist: ARtunes Radio Transcribe Date/Time: May 10 2024 3:02P Dictated [...] De La Rosa MD documented in this encounterGood Samaritan Hospital08-21-2024 Telephone encounter Note * Telephone Encounter - Isabela Rosado RN - 04/16/2024 9:38 AM EDT Spoke with Patient Doing ok today He iced and elevated all day yesterday and will continue to TTWB He will call back on Sunday with an update, if not needing anything sooner [facility]08-21-2024 Miscellaneous Notes* Telephone Encounter - Isabela [...] advise any other recommendations documented in this encounterGood Samaritan Hospital08-21-2024 Telephone encounter Note * Telephone Encounter - Isabela Rosado RN - 04/16/2024 9:21 AM EDT Left message for patient to return call. [facility]08-20-2024 Telephone encounter Note* Telephone Encounter - [...] patient and relayed message. Patient verbalized understanding. [facility]08-20-2024 Telephone encounter Note* Telephone Encounter - [...] would help Please advise any other recommendations [facility]08-07-2024 NoteHNO ID: [id number] Author: NUPUR DE LA ROSA MD Service: [...] are noted. Impression: IMPRESSION: No acute abnormality Military Personnel Specialist: CARMELA Transcribe Date/Time: Apr 05 2024 4:22P [...] repeat clinical evaluation Nupur De La Rosa, [facility]08-07-2024 History of Present illness Narrative* Nupur De [...] are noted. Impression: IMPRESSION: No acute abnormality Military Personnel Specialist: CARMELA Transcribe Date/Time: Apr 05 2024 4:22P [...] De La Rosa MD documented in this encounterGood Samaritan Hospital08-07-2024 History of Present illness Narrative* Kassidy [...] PATIENT PRESENTS WITH AN IMPLANTABLE OR ATTACHED FIELD HAND: No RADIOLOGY DEPARTMENT: General X-ray: Exam(s) Completed: Lower Extremity X- Ray(s): Knee, AP / LAT / OBLs Right PERIPHERAL IV DATA: Not applicable SIGNED BY: Robert Casey April 02, 2024 1:37 PM documented in this encounterGood Samaritan Hospital08-07-2024 NoteHNO ID: [id number] Author: KASSIDY NUNEZ Tech Service: Radiology Author Type: Wellness Guide Type: Progress Notes Filed: 04/02/2024 13:37 Note [...] PATIENT PRESENTS WITH AN IMPLANTABLE OR ATTACHED FIELD HAND: No RADIOLOGY DEPARTMENT: General X-ray: Exam(s) Completed: Lower Extremity X-Ray(s): Knee, AP / LAT / OBLs Right PERIPHERAL IV DATA: Not applicable SIGNED BY: Robert Casey April 02, 2024 1:37 PMBellevue [id number] Instructions* Patient Instructions* Alexus Mendez APRN.ANGIOGRAPHER - 03/27/2024 1:02 PM EDT 1) Letter to hemodialysis 2) Follow up in 3 months documented in this encounterGood Samaritan Hospital08-01-2024 NoteHNO ID: [id number] Author: ALEXUS MENDEZ APRN.CNP Service: ? Author Type: Clinical Nurse Specialist Type: Progress Notes Filed: 03/27/2024 13:02 Note Text: This is a 68 year old male who presents today with: Patient presents with: Mass: Pain and lump near belly button for one week. HISTORY OF PRESENT ILLNESS: Mauri Quinonse is a 68 year old male. Patient [...] failure (HCC) 03/24/2019: GARRET (acute kidney injury) ([facility]) 03/24/2019: GARRET (acute kidney injury) ([facility]) No date: Ankylosing spondylitis ([facility]) No date: CAD (coronary artery disease) No date: Cellulitis 03/24/2019: Chronic combined systolic and diastolic CHF (congestive heart failure) ([facility]) 03/24/2019: CKD (chronic kidney disease) stage 3, GFR 30-59 ml/min ([facility]) No date: Constipation No date: Diabetes ([facility]) No date: Gout 03/24/2019: High phosphate levels [...] calcifi 03/12/2017: NSTEMI (non-ST elevated myocardial infarction) ([facility]) Comment: [facility] admit No date: Osteoarthritis 04/08/2019: Transition of care performed with sharing of clinical summary Comment: Admit [facility] 03/21/19-03/22/19 Discharge diagnoses chronic kidney disease with worsening creatinine, acute kidney injury Hypokalemia Toxic encephalopathy secondary to Flexeril overusage Type 2 diabetes Ischemic cardiomyopathy Coronary artery disease Ligamental cervical neck strain and acute Pulmonary hypertension Hypertension Pyuria Preadmit: to [facility] ED with slurred speech, lethargy. PAST [...] elevates) No current facility-ad (more content not included)...[facility] 03-27-2024 History of Present illness Narrative* Alexus Mendez APRN.[facility] - 03/27/2024 12:45 PM EDT This is [...] systolic and diastolic CHF (congestive heart failure) ([facility]) 03/24/2019: CKD (chronic kidney disease) stage 3, GFR 30-59 ml/min ([facility]) No date: Constipation No date: Diabetes ([facility]) No date: Gout 03/24/2019: High phosphate levels [...] calcifi 03/12/2017: NSTEMI (non-ST elevated myocardial infarction) ([facility]) Comment: [facility] admit No date: Osteoarthritis 04/08/2019: Transition of care performed with sharing of clinical summary Comment: Admit [facility] 03/21/19-03/22/19 Discharge diagnoses chronic kidney disease with worsening creatinine, acute kidney injury Hypokalemia Toxic encephalopathy secondary to Flexeril overusage Type 2 diabetes Ischemic cardiomyopathy Coronary artery disease Ligamental cervical neck strain and acute Pulmonary hypertension Hypertension Pyuria Preadmit: to [facility] ED with slurred speech, lethargy. PAST [...] - ICD9: 414.8, ICD10: I25.5 Follows with [facility] 4. History of coronary artery bypass graft - ICD9: V45.81, ICD10: Z95.1 Follows with [facility] 5. JOHNY (obstructive sleep apnea) - [...] needed for worsening/no improvement. documented in this encounterGood Samaritan Hospital07-08-2024 NoteHNO ID: [id number] Author: NUPUR DE LA ROSA MD Service: [...] possible activity advancement Nupur De La Rosa [facility]07-08-2024 History of Present illness Narrative* Nupur De [...] De La Rosa MD documented in this encounterGood Samaritan Hospital07-08-2024 History of Present illness Narrative* Liat [...] PATIENT PRESENTS WITH AN IMPLANTABLE OR ATTACHED FIELD HAND: No RADIOLOGY DEPARTMENT: General X-ray: Exam(s) Completed: Lower Extremity X- Ray(s): Knee, AP / Lat / Tunne / Merchant Right PERIPHERAL IV DATA: Not applicable SIGNED BY: RT Mirela(Nader) March 03, 2024 1:21 PM documented in this encounterGood Samaritan Hospital07-08-2024 NoteHNO ID: [id number] Author: LIAT BURGER RT(R) Service: ? Author [...] PATIENT PRESENTS WITH AN IMPLANTABLE OR ATTACHED FIELD HAND: No RADIOLOGY DEPARTMENT: General X-ray: Exam(s) Completed: Lower Extremity X-Ray(s): Knee, AP / Lat / Tunne / Merchant Right PERIPHERAL IV DATA: Not applicable SIGNED BY: RT Mirela(Nader) March 03, 2024 1:21 PMBellevue [id number] Telephone encounter Note* Telephone Encounter - Traci Floyd RN - 02/20/2024 2:35 PM EDT I sent a MyChart message to patient regarding a Toradol script being called into pharmacy. [facility]06-26-2024 Miscellaneous Notes* Telephone Encounter - Traci Floyd RN - 02/20/2024 2:35 PM EDT I sent a EveryMovehart message to patient regarding a Toradol script [...] Kathy Day February 20, 2024 12:24 PM documented in this encounterGood Samaritan Hospital06-26-2024 Telephone encounter Note * Telephone Encounter - Traci Floyd RN - 02/20/2024 12:52 PM EDT I forwarded the request to your provider. [facility]06-26-2024 Telephone encounter Note* Telephone Encounter - [...] Kathy Day February 20, 2024 12:24 PM [facility]06-21-2024 NoteHNO ID: [id number] Author: NUPUR DE LA ROSA MD Service: [...] failure (HCC) 07/14/2018 GARRET (acute kidney injury) ([facility]) 03/24/2019 GARRET (acute kidney injury) ([facility]) 03/24/2019 Ankylosing spondylitis ([facility]) CAD (coronary artery disease) Cellulitis Chronic combined systolic and diastolic CHF (congestive heart failure) ([facility]) 03/24/2019 CKD (chronic kidney disease) stage 3, GFR 30-59 ml/min ([facility]) 03/24/2019 Constipation Diabetes ([facility]) Gout High phosphate levels 03/24/2019 History of [...] valve calcifi NSTEMI (non-ST elevated myocardial infarction) ([facility]) 03/12/2017 [facility] admit Osteoarthritis Transition of care performed with sharing of clinical summary 04/08/2019 Admit [facility] 03/21/19-03/22/19 Discharge diagnoses chronic kidney disease with worsening creatinine, acute kidney injury Hypokalemia Toxic encephalopathy secondary to Flexeril overusage Type 2 diabetes Ischemic cardiomyopathy Coronary artery disease Ligamental cervical neck strain and acute Pulmonary hypertension Hypertension Pyuria Preadmit: to [facility] ED with slurred speech, lethargy. PAST [...] detemir U-100 (LEVEMIR FLEXTOU (more content not included)...[facility]06-21-2024 History of Present illness Narrative* Nupur [...] Acute on chronic diastolic congestive heart failure ([facility]) 07/14/2018 GARRET (acute kidney injury) ([facility]) 03/24/2019 GARRET (acute kidney injury) ([facility]) 03/24/2019 Ankylosing spondylitis ([facility]) CAD (coronary artery disease) Cellulitis Chronic combined systolic and diastolic CHF (congestive heart failure) ([facility]) 03/24/2019 CKD (chronic kidney disease) stage 3, GFR 30-59 ml/min ([facility]) 03/24/2019 Constipation Diabetes ([facility]) Gout High phosphate levels 03/24/2019 History of [...] valve calcifi NSTEMI (non-ST elevated myocardial infarction) ([facility]) 03/12/2017 [facility] admit Osteoarthritis Transition of care performed with sharing of clinical summary 04/08/2019 Admit [facility] 03/21/19-03/22/19 Discharge diagnoses chronic kidney disease with worsening creatinine, acute kidney injury Hypokalemia Toxic encephalopathy secondary to Flexeril overusage Type 2 diabetes Ischemic cardiomyopathy Coronary artery disease Ligamental cervical neck strain and acute Pulmonary hypertension Hypertension Pyuria Preadmit: to [facility] ED with slurred speech, lethargy. PAST [...] result) Impression: IMPRESSION: Joint effusion. Intact TKA Military Personnel Specialist: CARMELA Transcribe Date/Time: Feb 15 2024 7:41A Dictated by : SONG DE LA GARZA MD ... Last XR Ankle - Impression Only XR ANKLE GENERAL 3V AP/LAT/OBL RIGHT Exam End: 02/13/2024 3:21 PM (Final result) Impression: IMPRESSION: No acute abnormality Military Personnel Specialist: CARMELA Transcribe Date/Time: Feb 15 2024 7:43A [...] of brace.. Sheldon Alonso documented in this encounterGood Samaritan Hospital06-21-2024 Telephone encounter Note * Telephone Encounter - Isabela Rosado RN - 02/15/2024 11:37 AM EDT See EveryMovehart message [facility]06-21-2024 Miscellaneous Notes* Telephone Encounter - Isabela [...] calling: self Call patient at: at home [phone] (home) [phone] (work) [phone] (cell) Was an appointment scheduled: No Closing statement: Symptom Call: Thank you for calling [facility], your call is very important. A nurse will call in approximately 2-4 hours during business hours. If this is an emergency, please contact 911. Luciana Ferguson documented in this encounterGood Samaritan Hospital06-21-2024 Telephone encounter Note * Telephone Encounter - Isabela Rosado RN - 02/15/2024 10:55 AM EDT Left message for patient to return call. [facility]06-21-2024 Telephone encounter Note* Telephone Encounter - [...] calling: self Call patient at: at home [phone] (home) [phone] (work) [phone] (cell) Was an appointment scheduled: No Closing statement: Symptom Call: Thank you for calling [facility], your call is very important. A nurse will call in approximately 2-4 hours during business hours. If this is an emergency, please contact 911. Luciana Ferguson [facility]06-19-2024 NoteHNO ID: [id number] Author: FLAVIO RIVERA Cast Tech Service: ? Author Type: Production Generalist Type: Progress Notes Filed: 02/15/2024 17:28 Note Text: PT ASSESSMENT - CASTING ROOM Mauri presents for Application of brace. Applied X-ROM knee support to Right knee set at 10 degrees flexion Patient has been instructed in Care of brace.. Flavio Rivera, Sheldon [facility]06-19-2024 History of Present illness Narrative* Kassidy [...] PATIENT PRESENTS WITH AN IMPLANTABLE OR ATTACHED FIELD HAND: No RADIOLOGY DEPARTMENT: General X-ray: Exam(s) Completed: Lower Extremity X- Ray(s): Knee, AP / LAT / OBLs Right and Ankle, Right PERIPHERAL IV DATA: Not applicable SIGNED BY: Robert Casey February 13, 2024 3:21 PM documented in this [facility]06-19-2024 NoteHNO ID: [id number] Author: KASSIDY NUNEZ Tech Service: Radiology Author Type: Wellness Guide Type: Progress Notes Filed: 02/13/2024 15:21 Note [...] PATIENT PRESENTS WITH AN IMPLANTABLE OR ATTACHED FIELD HAND: No RADIOLOGY DEPARTMENT: General X-ray: Exam(s) Completed: Lower Extremity X-Ray(s): Knee, AP / LAT / OBLs Right and Ankle, Right PERIPHERAL IV DATA: Not applicable SIGNED BY: Robert Casey February 13, 2024 3:21 PMBellevue [id number] Miscellaneous Notes* Telephone Encounter - Luciana Ferguson - 02/11/2024 9:50 AM EDT Patient will stay on scheduled * Telephone Encounter - Isabela Rosado RN - 02/07/2024 7:46 AM EDT Pt has been scheduled in a locked slot The locked slots are for DR. MCCONNELL OFFICE STAFF ONLY (please see heading) These are to be used ONLY when Dr De La Rosa is reservations specialist for [place] or [place] [facility]-please do an error report on the PSS that scheduled this [facility] Few, Please call patient and reschedule with another provider in a correct slot documented in this encounterGood Samaritan Hospital06-17-2024 Telephone encounter Note * Telephone Encounter - Luciana Ferguson - 02/11/2024 9:50 AM EDT Patient will stay on scheduled [facility]06-13-2024 Telephone encounter Note* Telephone Encounter - Isabela Rosado RN - 02/07/2024 7:46 AM EDT Pt has been scheduled in a locked slot The locked slots are for DR. MCCONNELL OFFICE STAFF ONLY (please see heading) These are to be used ONLY when Dr De La Rosa is reservations specialist for [place] or [place] [facility]-please do an error report on the PSS that scheduled this Jennifer Few, Please call patient and reschedule with another provider in a correct slot [facility]06-11-2024 Telephone encounter Note* Telephone Encounter - Rigoberto Gould MD - 02/05/2024 11:30 AM EDT noted [facility]06-11-2024 Miscellaneous Notes* Telephone Encounter - Rigoberto Gould MD - 02/05/2024 11:30 AM EDT noted * Telephone Encounter - Rebecca Moe LPN - 02/05/2024 11:24 AM EDT Rozina Sheth from [facility] calling patient had fall on 02/01 in [place] and has fractured tibial plateau right leg. He is back at home now. He and his are trying to get him in with Ramón Sohail at [facility] he has seen previously. He needs no referral. documented in this encounterGood Samaritan Hospital06-11-2024 Telephone encounter Note * Telephone Encounter - Rebecca Moe LPN - 02/05/2024 11:24 AM EDT Rozina Sheth from [facility] calling patient had fall on 02/01 in [place] and has fractured tibial plateau right leg. He is back at home now. He and his are trying to get him in with Ramón Sohail at [facility] he has seen previously. He needs no referral. [facility]05-20-[facility] History of Present illness Narrative* Doreen [...] 14, 2024 2:24 PM documented in this encounterGood Samaritan Hospital05-03-2024 Instructions* Patient Instructions* Maki Knight MA - 12/28/2023 3:02 PM EDT Leave the dressing on until it comes loose in a couple days. Can shower as usual. Suture removal inapproximately 3 weeks. Call office with any concerns in the interim. [phone] Nurse reservations specialist over the weekend. Specimen sent for pathology. documented in this encounterGood Samaritan Hospital05-03-2024 History of Present illness Narrative* Maki [...] dry. Patient acknowledges above documented in this encounterGood Samaritan Hospital04-12-2024 Nurse Note* Maki Knight MA - [...] none Maki Knight MA documented in this encounterGood Samaritan Hospital04-12-2024 Instructions* Patient Instructions* Maki Knight MA - 12/07/2023 3:15 PM EDT documented in this encounterGood Samaritan Hospital04-12-2024 History of Present illness Narrative* Melanie [...] Acute on chronic diastolic congestive heart failure ([facility]) 07/14/2018 GARRET (acute kidney injury) ([facility]) 03/24/2019 GARRET (acute kidney injury) ([facility]) 03/24/2019 Ankylosing spondylitis ([facility]) CAD (coronary artery disease) Cellulitis Chronic combined systolic and diastolic CHF (congestive heart failure) ([facility]) 03/24/2019 CKD (chronic kidney disease) stage 3, GFR 30-59 ml/min ([facility]) 03/24/2019 Constipation Diabetes ([facility]) Gout High phosphate levels 03/24/2019 History of coronary artery bypass graft 04/18/2019 04/10/17 CARTY to LAD, SVG to PDA, SVG to OM Hx of fracture multiple bones Hyperkalemia 03/24/2019 Hypoalbuminemia 03/24/2019 Hyponatremia 03/24/2019 Hypoxia 03/24/2019 Ischemic cardiomyopathy 04/18/2019 Echocardiogram 01/10/19 Dr. Nuenz: Dilated left ventricle, left ventricular ejection fraction 40%, mild to moderate systolic dysfunction, moderate concentric LVH, dilated left and right atria. Mild mitral valve thickening with papillary muscle dysfunction, mild mitral valve insufficiency, tricuspid valve insufficiency, aortic valve insufficiency, pulmonic valve insufficiency. Aortic valve calcifi NSTEMI (non-ST elevated myocardial infarction) ([facility]) 03/12/2017 [facility] admit Osteoarthritis Transition of care performed with sharing of clinical summary 04/08/2019 Admit [facility] 03/21/19-03/22/19 Discharge diagnoses chronic kidney disease with worsening creatinine, acute kidney injury Hypokalemia Toxic encephalopathy secondary to Flexeril overusage Type 2 diabetes Ischemic cardiomyopathy Coronary artery disease Ligamental cervical neck strain and acute Pulmonary hypertension Hypertension Pyuria Preadmit: to [facility] ED with slurred speech, lethargy. PAST [...] entered by the nurse and reviewed by or Nursing Notes: Maki Knight MA 12/07/2023 4:01 [...] Low Melanie Rushing MD documented in this encounterGood Samaritan Hospital03-14-2024 History of Present illness Narrative* Ivet [...] PATIENT PRESENTS WITH AN IMPLANTABLE OR ATTACHED FIELD HAND: No RADIOLOGY DEPARTMENT: General X-ray: Exam(s) Completed: Lower Extremity X- Ray(s): Tibia Fibula, Right PERIPHERAL IV DATA: Not applicable SIGNED BY: RT Haroon(R) November 08, 2023 3:12 PM documented in this encounterGood Samaritan Hospital03-14-2024 Instructions* Patient Instructions* Alexus Mendez APRN.CNS - 11/08/2023 2:35 PM EDT 1) Get Xray right tibia 2) Referred to general surgery 3) Schedule follow up in 6 weeks documented in this encounterGood Samaritan Hospital03-14-2024 History of Present illness Narrative* Alexus [...] Acute on chronic diastolic congestive heart failure ([facility]) 07/14/2018 GARRET (acute kidney injury) ([facility]) 03/24/2019 GARRET (acute kidney injury) ([facility]) 03/24/2019 Ankylosing spondylitis ([facility]) CAD (coronary artery disease) Cellulitis Chronic combined systolic and diastolic CHF (congestive heart failure) ([facility]) 03/24/2019 CKD (chronic kidney disease) stage 3, GFR 30-59 ml/min ([facility]) 03/24/2019 Constipation Diabetes ([facility]) Gout High phosphate levels 03/24/2019 History of [...] NSTEMI (non-ST elevated myocardial infarction) (HCC) 03/12/2017 [facility] admit Osteoarthritis Transition of care performed with sharing of clinical summary 04/08/2019 Admit [facility] 03/21/19-03/22/19 Discharge diagnoses chronic kidney disease with worsening creatinine, acute kidney injury Hypokalemia Toxic encephalopathy secondary to Flexeril overusage Type 2 diabetes Ischemic cardiomyopathy Coronary artery disease Ligamental cervical neck strain and acute Pulmonary hypertension Hypertension Pyuria Preadmit: to [facility] ED with slurred speech, lethargy. PAST [...] as needed for worsening/no improvement. Alexus Mendez APRN.PHONE REPRESENTATIVE The patient indicates understanding of these issues and agrees with the plan. documented in this encounterGood Samaritan Hospital09-21-2023 History of Present illness Narrative* Robinson [...] COVID before visiting his wifeis in a usp who is having surgery next week. Discussed supportive care with isolation and masking to reduce transmission of COVID and other viral illnesses. Robinson Henao MD documented in this encounterGood Samaritan Hospital08-28-2023 [facility] 04-23-2023 [facility]08-25-2023 [facility]08-25-2023 [facility]05-11-2023 [facility]05-11-2023 [facility]05-10-2023 [facility]05-10-2023 [facility]05-09-2023 [facility]05-09-2023 [facility] 01-01-2023 NoteHNO ID: [id number] Author: Oralia Byrd RN Service: ? Author Type: Registered Nurse Type: Nursing Progress Note Filed: 01/01/2023 4:19 PM Note Text: O2 86 % on room air. Placed 2L NC on patient. Dr. Blanco notified via [employer] secure chat.[facility]05-08-2023 Miscellaneous Notes* Telephone Encounter - Aditya Summers RN - 01/01/2023 10:45 AM EDT Erica Lim, phoned to report patient was admitted to [facility] today to have femur plate (where had fracture last year) removed and replaced. documented in this encounterGood Samaritan Hospital05-08-2023 [facility] 01-01-2023 NoteHNO ID: [id number] Author: Vandana Sands RN Service: Nursing Author Type: Registered Nurse Type: Nursing Progress Note Filed: 01/01/2023 8:12 AM Note Text: Spinal performed by Dr. Montanez from [id number].[facility]05-08-2023 [facility]05-05-2023 [facility]05-05-2023 [facility]03-06-2023 History of Present illness Narrative* Rigoberto Gould [...] Acute on chronic diastolic congestive heart failure ([facility]) 07/14/2018 GARRET (acute kidney injury) ([facility]) 03/24/2019 GARRET (acute kidney injury) ([facility]) 03/24/2019 Ankylosing spondylitis ([facility]) CAD (coronary artery disease) Cellulitis Chronic combined systolic and diastolic CHF (congestive heart failure) ([facility]) 03/24/2019 CKD (chronic kidney disease) stage 3, GFR 30-59 ml/min ([facility]) 03/24/2019 Constipation Diabetes ([facility]) Gout High phosphate levels 03/24/2019 History of [...] valve calcifi NSTEMI (non-ST elevated myocardial infarction) ([facility]) 03/12/2017 [facility] admit Osteoarthritis Transition of care performed with sharing of clinical summary 04/08/2019 Admit [facility] 03/21/19-03/22/19 Discharge diagnoses chronic kidney disease with worsening creatinine, acute kidney injury Hypokalemia Toxic encephalopathy secondary to Flexeril overusage Type 2 diabetes Ischemic cardiomyopathy Coronary artery disease Ligamental cervical neck strain and acute Pulmonary hypertension Hypertension Pyuria Preadmit: to [facility] ED with slurred speech, lethargy. PAST [...] to underlying condition, unspecified proliferative retinopathy type ([facility]) - ICD9: 249.50, 362.02, ICD10: E08.3593 - stable. 4. ESRD (end stage renal disease) on dialysis ([facility]) - ICD9: 585.6, V45.11, ICD10: N18.6, Z99.2 - stable. 5. Chronic combined systolic and diastolic CHF (congestive heart failure) ([facility]) - ICD9: 428.42, 428.0, ICD10: I50.42 - stable. 6. Ankylosing spondylitis of multiple sites in spine ([facility]) - ICD9: 720.0, ICD10: M45.0 - continue [...] complication, with long-term current use of insulin ([facility]) - ICD9: 250.00, V58.67, ICD10: E11.9, Z79.4 - HGB A1C - LIPID PANEL, NONFASTING Rigoberto Gould MD documented in this encounterGood Samaritan Hospital12-05-2022 History of Present illness Narrative* Rigoberto Goudl MD - 07/31/2022 11:22 AM EST Patient presents with: Follow Up HPI: Patient presents today for office visit for follow up. ORIF right femur fx [facility] [place] Which facility: [facility] Date of visit: 04/28/22 surgery fx happened on 04/22 Was at [facility] and left there on 06/01/22 Finally able [...] Acute on chronic diastolic congestive heart failure ([facility]) 07/14/2018 GARRET (acute kidney injury) ([facility]) 03/24/2019 GARRET (acute kidney injury) ([facility]) 03/24/2019 Ankylosing spondylitis ([facility]) CAD (coronary artery disease) Cellulitis Chronic combined systolic and diastolic CHF (congestive heart failure) ([facility]) 03/24/2019 CKD (chronic kidney disease) stage 3, GFR 30-59 ml/min ([facility]) 03/24/2019 Constipation Diabetes ([facility]) Gout High phosphate levels 03/24/2019 History of [...] valve calcifi NSTEMI (non-ST elevated myocardial infarction) ([facility]) 03/12/2017 [facility] admit Osteoarthritis Transition of care performed with sharing of clinical summary 04/08/2019 Admit [facility] 03/21/19-03/22/19 Discharge diagnoses chronic kidney disease with worsening creatinine, acute kidney injury Hypokalemia Toxic encephalopathy secondary to Flexeril overusage Type 2 diabetes Ischemic cardiomyopathy Coronary artery disease Ligamental cervical neck strain and acute Pulmonary hypertension Hypertension Pyuria Preadmit: to [facility] ED with slurred speech, lethargy. PAST [...] treating. Rigoberto Gould MD documented in this encounterGood Samaritan Hospital11-30-2022 Miscellaneous Notes* Telephone Encounter - Florina [...] for referral to Dr. Paiz, GASTRO @ [facility] for recurrent C-Diff. Kristan Cassidy RN documented in this encounterGood Samaritan Hospital11-06-2022 Miscellaneous Notes* Telephone Encounter - Aditya [...] Provider: Aditya DAVIS PA-C documented in this encounterGood Samaritan Hospital11-03-2022 Miscellaneous Notes* Telephone Encounter - Garrison [...] appointment. Susu Hernandez RN documented in this encounterGood Samaritan Hospital10-28-2022 Miscellaneous Notes* Telephone Encounter - Aditya [...] daily for 7 days, he was at [facility] and came home. said his stool is loose foul smelling 1 to 4 times daily still. Asking if needs to have another round of Vancomycin? Patient uses [facility] for his pharmacy. Please advise documented in this encounterGood Samaritan Hospital10-13-2022 Miscellaneous Notes* Telephone Encounter - Kristan Cassidy RN - 06/08/2022 4:24 PM EDT JD Ward @ [facility] calling with plan of care. PT will see patient 2 x/week for three weeks for strength, ROM and pain management. Kristan Cassidy RN documented in this encounterGood Samaritan Hospital10-10-2022 Miscellaneous Notes* Telephone Encounter - Alicia Cantu LPN - 06/05/2022 3:47 PM EDT Completed. * Telephone Encounter - Aditya Summers RN - 06/05/2022 11:50 AM EDT Rozina- Cecilia Mckenzie/Carley, phoned to let provider know- patient went home from [facility] on 06-01-22, and has f/u appt with Dr. Gould today. Asking if she can have a copy of those ov notes, to haveupdated medication list. Please fax to [phone] documented in this encounterGood Samaritan Hospital10-10-2022 History of Present illness Narrative* Rigoberto Gould MD - 06/05/2022 2:30 PM EDT Patient presents with: Hospital F/U HOSPITAL/ER FOLLOW UP: Reason for visit: ORIF right femur fx [facility] [place] Which facility: [facility] Date of visit: 04/28/22 surgery fx happened on 04/22 Was at [facility] and left there on 06/01/22 Current symptoms: [...] the metalazone. See below. Has surgery per [facility] [place]. Just saw them recently. No weight bearing until Jul 27. He was at [facility] from 05/08-06/01/22. He left the facility AMA. [...] attempting to set up an appt with [facility]. He had an old compression deformity on xray but he has no pain. No black or bloody stools. No stomach pain. Was still on oral vanco for c diff. Does seem to be improving. Still doing dialysis three times a week per Dr Jackson. Still working on weight. They did not want to follow up with gi in [place]. Suggested they follow with them. See Discharge summary from [facility]-admitted 04/23 and discharged 05/08/22 HPI: Patient presents [...] right knee pain for which he presented [facility] where he was found to have right femur fracture for which he was transferred to [facility] for further management. Please refer to initial [...] Advised outpatient stress test afterfollowing with his regulatory compliance coordinator Dr. Duran. Advised to start aspirin 1 week later if no evidenceof bleeding and if hemoglobin is stable and discuss with GI before resuming aspirin. Patient was noted to have incidental T9 compression fracture (age-indeterminate, likely chronic) and was seen by spinal orthopedics. Advised outpatient follow-up as needed. PT/OT advised usp placement which was arranged through social welfare clerk. Otherwise he is stable for discharge today [...] Acute on chronic diastolic congestive heart failure ([facility]) 07/14/2018 GARRET (acute kidney injury) ([facility]) 03/24/2019 GARRET (acute kidney injury) ([facility]) 03/24/2019 Ankylosing spondylitis ([facility]) CAD (coronary artery disease) Cellulitis Chronic combined systolic and diastolic CHF (congestive heart failure) ([facility]) 03/24/2019 CKD (chronic kidney disease) stage 3, GFR 30-59 ml/min ([facility]) 03/24/2019 Constipation Diabetes ([facility]) Gout High phosphate levels 03/24/2019 History of [...] valve calcifi NSTEMI (non-ST elevated myocardial infarction) ([facility]) 03/12/2017 [facility] admit Osteoarthritis Transition of care performed with sharing of clinical summary 04/08/2019 Admit [facility] 03/21/19-03/22/19 Discharge diagnoses chronic kidney disease with worsening creatinine, acute kidney injury Hypokalemia Toxic encephalopathy secondary to Flexeril overusage Type 2 diabetes Ischemic cardiomyopathy Coronary artery disease Ligamental cervical neck strain and acute Pulmonary hypertension Hypertension Pyuria Preadmit: to [facility] ED with slurred speech, lethargy. PAST [...] GASTROENTEROLOGY Rigoberto Gould MD documented in this encounterGood Samaritan Hospital09-13-2022 Miscellaneous Notes* Telephone Encounter - Farrah Hastings RN - 05/09/2022 10:36 AM EDT Rozina Sheth [facility] calls to report that patient was transferred to [facility]. Farrah Hastings RN * Telephone Encounter - Bryce Landin RN - 04/25/2022 10:48 AM EDT Rozina Sheth from [facility] called in and wanted to let provider know that Pt went into [facility] on Sunday for a fractured femur. He is was unable to have surgery done at this time because he had a GI bleed. They have fixed that now just have to wait for his counts to come up before they can complete the surgery. She reports she will call and let providers office know when Pt comes home. documented in this encounterGood Samaritan Hospital09-12-2022 [facility] 05-07-2022 [facility]09-10-2022 [facility]09-09-2022 [facility]09-09-2022 [facility]09-08-2022 [facility]09-08-2022 [facility]09-08-2022 NoteHNO ID: [id number] Author: Esther Heart RN Service: Nursing Author Type: Registered Nurse Type: Progress Notes Filed: 05/04/2022 10:21 AM Note Text: Pt is resting in bed at this time no complaints noted. Call light in reach. Will monitorProvidence [facility]09-07-2022 [facility] 05-03-2022 [facility]09-06-2022 [facility]09-06-2022 [facility]09-05-2022 [facility]09-05-2022 [facility]09-04-2022 History of Past illness Narrative* Problem [...] of clinical summary 04/08/2019 04/18/2019 Overview: Admit [facility] 03/21/19-03/22/19 Discharge diagnoses chronic kidney disease with worsening creatinine, acute kidney injury Hypokalemia Toxic encephalopathy secondary to Flexeril overusage Type 2 diabetes Ischemic cardiomyopathy Coronary artery disease Ligamental cervical neck strain and acute Pulmonary hypertension Hypertension Pyuria Preadmit: to [facility] ED with slurred speech, lethargy. Malnutrition [...] of this encounter (statuses as of 10/30/2022) [facility]09-04-2022 History of Past illness Narrative* Problem [...] of clinical summary 04/08/2019 04/18/2019 Overview: Admit [facility] 03/21/19-03/22/19 Discharge diagnoses chronic kidney disease with worsening creatinine, acute kidney injury Hypokalemia Toxic encephalopathy secondary to Flexeril overusage Type 2 diabetes Ischemic cardiomyopathy Coronary artery disease Ligamental cervical neck strain and acute Pulmonary hypertension Hypertension Pyuria Preadmit: to [facility] ED with slurred speech, lethargy. Malnutrition [...] of this encounter (statuses as of 01/05/2023) [facility]09-04-20[facility] History of Past illness Narrative* Problem [...] of clinical summary 04/08/2019 04/18/2019 Overview: Admit [facility] 03/21/19-03/22/19 Discharge diagnoses chronic kidney disease with worsening creatinine, acute kidney injury Hypokalemia Toxic encephalopathy secondary to Flexeril overusage Type 2 diabetes Ischemic cardiomyopathy Coronary artery disease Ligamental cervical neck strain and acute Pulmonary hypertension Hypertension Pyuria Preadmit: to [facility] ED with slurred speech, lethargy. Malnutrition [...] of this encounter (statuses as of 05/18/2023) [facility]09-04-[facility] History of Past illness Narrative* Problem [...] of clinical summary 04/08/2019 04/18/2019 Overview: Admit [facility] 03/21/19-03/22/19 Discharge diagnoses chronic kidney disease with worsening creatinine, acute kidney injury Hypokalemia Toxic encephalopathy secondary to Flexeril overusage Type 2 diabetes Ischemic cardiomyopathy Coronary artery disease Ligamental cervical neck strain and acute Pulmonary hypertension Hypertension Pyuria Preadmit: to [facility] ED with slurred speech, lethargy. Malnutrition [...] of this encounter (statuses as of 11/08/2023) [facility]09-04-20[facility] History of Past illness Narrative* Problem [...] of clinical summary 04/08/2019 04/18/2019 Overview: Admit [facility] 03/21/19-03/22/19 Discharge diagnoses chronic kidney disease with worsening creatinine, acute kidney injury Hypokalemia Toxic encephalopathy secondary to Flexeril overusage Type 2 diabetes Ischemic cardiomyopathy Coronary artery disease Ligamental cervical neck strain and acute Pulmonary hypertension Hypertension Pyuria Preadmit: to [facility] ED with slurred speech, lethargy. Malnutrition [...] of this encounter (statuses as of 12/11/2023) [facility]09-04-2022 [facility]09-04-2022 [facility]09-04-2022 [facility]09-03-2022 [facility] 04-29-2022 [facility]09-03-2022 [facility]09-02-2022 [facility]09-02-2022 [facility]09-01-2022 [facility]09-01-2022 [facility]08-31-2022 [facility]-31-2022 [facility]-31-2022 [facility] 04-26-2022 [facility]08-30-2022 [facility]08-16-2022 Miscellaneous Notes* Telephone Encounter - Oralia aN - 04/11/2022 4:09 PM EDT ----- Message from Rigoberto Gould MD sent at 04/10/2022 4:53 PM EDT ----- Undergoes dialysis. 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 documented in this encounterGood Samaritan Hospital08-04-2022 Miscellaneous Notes* Telephone Encounter - Florina [...] been placed. Thank you. documented in this encounterGood Samaritan Hospital07-11-2022 History of Present illness Narrative* Jensen [...] EDT Pre-Tx Evaluation Kidney 03/06/2022 Mauri Stacie [id number] Chief Complaint: Chief Complaint Patient presents with [...] for this patient. documented in this encounterOSU [facility]07-11-[facility] Instructions* Patient Instructions* Jensen Osei RN - [...] contact your coordinator QUYEN Riojas, RN at [phone] if you have any additional questions. [facility] fax number [phone] Next Steps: During your evaluation, orders for the following diagnostic testing were placed as part of your pre-kidney transplant evaluation work-up. You are responsible to schedule these tests on dates and times that work best with your schedule. You may schedule these tests by calling [facility] (P: [phone]). We will request images from your recent [...] these tests when appropriate and contact your Floral Design Teacher upon completion. Colonoscopy: This can be scheduled through your PCP, or, if you choose, you may schedule through [facility] by calling (P: [phone]); Dental: Please schedule this through your dental care provider; Please Note: All required diagnostic testing, as well as any additional follow- up (referrals, consultations, etc) must be completed prior to your candidacy as a potential kidney transplant recipient being presented to the Patient Selection Committee. Once the recommended testing has been completed, your Floral Design Teacher will contact you regarding a potential date [...] with the Living Kidney Donor Coordinators (P: [phone]; P: [phone]) or email them at: [email or web address] documented in this encounterThe [facility] of [facility]06-27-2022 History of Present illness Narrative* [...] 20, 2022 10:01 AM documented in this encounterGood Samaritan Hospital04-08-2022 History of Present illness Narrative* Rigoberto Gould MD - 12/02/2021 1:19 PM EDT Patient presents with: Discussion: discontinuing oxygen HPI: Patient presents today for office visit for above. Has not been seen in office since virtual visit nearly 14 months ago. Was seen by Albert Davis via virtual visit. Was in [facility] at that time for chf and [...] subcutaneously w MEALS. flash glucose scanning reader ([employer]YLE SERGEI 14 DAY READER) misc 1 Each [...] Acute on chronic diastolic congestive heart failure ([facility]) 07/14/2018 GARRET (acute kidney injury) ([facility]) 03/24/2019 GARRET (acute kidney injury) ([facility]) 03/24/2019 Ankylosing spondylitis ([facility]) CAD (coronary artery disease) Cellulitis Chronic combined systolic and diastolic CHF (congestive heart failure) ([facility]) 03/24/2019 CKD (chronic kidney disease) stage 3, GFR 30-59 ml/min ([facility]) 03/24/2019 Constipation Diabetes ([facility]) Gout High phosphate levels 03/24/2019 History of [...] NSTEMI (non-ST elevated myocardial infarction) (HCC) 03/12/2017 [facility] admit Osteoarthritis Transition of care performed with sharing of clinical summary 04/08/2019 Admit [facility] 03/21/19 03/22/19 Discharge diagnoses chronic kidney disease with worsening creatinine, acute kidney injury Hypokalemia Toxic encephalopathy secondary to Flexeril overusage Type 2 diabetes Ischemic cardiomyopathy Coronary artery disease Ligamental cervical neck strain and acute Pulmonary hypertension Hypertension Pyuria Preadmit: to [facility] ED with slurred speech, lethargy. PAST [...] unspecified whether stage 3a or 3b CKD ([facility]) - ICD9: 285.21, 585.3, ICD10: N18.30, D63.1 - per nephro 8. Chronic kidney disease, stage IV (severe) ([facility]) - ICD9: 585.4, ICD10: N18.4 9. 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 Rigoberto Gould RTO in six month and prn. Medical Decision Making documented in this encounterGood Samaritan Hospital03-21-2022 Miscellaneous Notes* Telephone Encounter - Rebecca [...] need done. Please advise documented in this encounterGood Samaritan Hospital02-10-2021 History of Past illness Narrative* Problem [...] of clinical summary 04/08/2019 04/18/2019 Overview: Admit [facility] 03/21/19 03/22/19 Discharge diagnoses chronic kidney disease with worsening creatinine, acute kidney injury Hypokalemia Toxic encephalopathy secondary to Flexeril overusage Type 2 diabetes Ischemic cardiomyopathy Coronary artery disease Ligamental cervical neck strain and acute Pulmonary hypertension Hypertension Pyuria Preadmit: to [facility] ED with slurred speech, lethargy. Malnutrition [...] of this encounter (statuses as of 12/02/2021) [facility]02-10-2021 History of Past illness Narrative* Problem [...] of clinical summary 04/08/2019 04/18/2019 Overview: Admit [facility] 03/21/19 03/22/19 Discharge diagnoses chronic kidney disease with worsening creatinine, acute kidney injury Hypokalemia Toxic encephalopathy secondary to Flexeril overusage Type 2 diabetes Ischemic cardiomyopathy Coronary artery disease Ligamental cervical neck strain and acute Pulmonary hypertension Hypertension Pyuria Preadmit: to [facility] ED with slurred speech, lethargy. Malnutrition [...] of this encounter (statuses as of 02/20/2022) [facility]02-10-[facility] History of Past illness Narrative* Problem [...] of clinical summary 04/08/2019 04/18/2019 Overview: Admit [facility] 03/21/19 03/22/19 Discharge diagnoses chronic kidney disease with worsening creatinine, acute kidney injury Hypokalemia Toxic encephalopathy secondary to Flexeril overusage Type 2 diabetes Ischemic cardiomyopathy Coronary artery disease Ligamental cervical neck strain and acute Pulmonary hypertension Hypertension Pyuria Preadmit: to [facility] ED with slurred speech, lethargy. Malnutrition [...] of this encounter (statuses as of 03/30/2022) [facility] History of Past illness Narrative* Problem [...] of clinical summary 04/08/2019 04/18/2019 Overview: Admit [facility] 03/21/19-03/22/19 Discharge diagnoses chronic kidney disease with worsening creatinine, acute kidney injury Hypokalemia Toxic encephalopathy secondary to Flexeril overusage Type 2 diabetes Ischemic cardiomyopathy Coronary artery disease Ligamental cervical neck strain and acute Pulmonary hypertension Hypertension Pyuria Preadmit: to [facility] ED with slurred speech, lethargy. Malnutrition [...] of this encounter (statuses as of 06/05/2022) [facility] History of Past illness Narrative* Problem [...] of clinical summary 04/08/2019 04/18/2019 Overview: Admit [facility] 03/21/19-03/22/19 Discharge diagnoses chronic kidney disease with worsening creatinine, acute kidney injury Hypokalemia Toxic encephalopathy secondary to Flexeril overusage Type 2 diabetes Ischemic cardiomyopathy Coronary artery disease Ligamental cervical neck strain and acute Pulmonary hypertension Hypertension Pyuria Preadmit: to [facility] ED with slurred speech, lethargy. Malnutrition [...] of this encounter (statuses as of 06/05/2022) [facility] History of Past illness Narrative* Problem [...] of clinical summary 04/08/2019 04/18/2019 Overview: Admit [facility] 03/21/19-03/22/19 Discharge diagnoses chronic kidney disease with worsening creatinine, acute kidney injury Hypokalemia Toxic encephalopathy secondary to Flexeril overusage Type 2 diabetes Ischemic cardiomyopathy Coronary artery disease Ligamental cervical neck strain and acute Pulmonary hypertension Hypertension Pyuria Preadmit: to [facility] ED with slurred speech, lethargy. Malnutrition [...] of this encounter (statuses as of 06/16/2022) [facility] History of Past illness Narrative* Problem [...] of clinical summary 04/08/2019 04/18/2019 Overview: Admit [facility] 03/21/19-03/22/19 Discharge diagnoses chronic kidney disease with worsening creatinine, acute kidney injury Hypokalemia Toxic encephalopathy secondary to Flexeril overusage Type 2 diabetes Ischemic cardiomyopathy Coronary artery disease Ligamental cervical neck strain and acute Pulmonary hypertension Hypertension Pyuria Preadmit: to [facility] ED with slurred speech, lethargy. Malnutrition [...] of this encounter (statuses as of 06/19/2022) [facility] History of Past illness Narrative* Problem [...] of clinical summary 04/08/2019 04/18/2019 Overview: Admit [facility] 03/21/19-03/22/19 Discharge diagnoses chronic kidney disease with worsening creatinine, acute kidney injury Hypokalemia Toxic encephalopathy secondary to Flexeril overusage Type 2 diabetes Ischemic cardiomyopathy Coronary artery disease Ligamental cervical neck strain and acute Pulmonary hypertension Hypertension Pyuria Preadmit: to [facility] ED with slurred speech, lethargy. Malnutrition [...] of this encounter (statuses as of 06/23/2022) [facility] History of Past illness Narrative* Problem [...] of clinical summary 04/08/2019 04/18/2019 Overview: Admit [facility] 03/21/19-03/22/19 Discharge diagnoses chronic kidney disease with worsening creatinine, acute kidney injury Hypokalemia Toxic encephalopathy secondary to Flexeril overusage Type 2 diabetes Ischemic cardiomyopathy Coronary artery disease Ligamental cervical neck strain and acute Pulmonary hypertension Hypertension Pyuria Preadmit: to [facility] ED with slurred speech, lethargy. Malnutrition [...] of this encounter (statuses as of 06/29/2022) [facility] History of Past illness Narrative* Problem [...] of clinical summary 04/08/2019 04/18/2019 Overview: Admit [facility] 03/21/19-03/22/19 Discharge diagnoses chronic kidney disease with worsening creatinine, acute kidney injury Hypokalemia Toxic encephalopathy secondary to Flexeril overusage Type 2 diabetes Ischemic cardiomyopathy Coronary artery disease Ligamental cervical neck strain and acute Pulmonary hypertension Hypertension Pyuria Preadmit: to [facility] ED with slurred speech, lethargy. Malnutrition [...] of this encounter (statuses as of 07/02/2022) [facility] History of Past illness Narrative* Problem [...] of clinical summary 04/08/2019 04/18/2019 Overview: Admit [facility] 03/21/19-03/22/19 Discharge diagnoses chronic kidney disease with worsening creatinine, acute kidney injury Hypokalemia Toxic encephalopathy secondary to Flexeril overusage Type 2 diabetes Ischemic cardiomyopathy Coronary artery disease Ligamental cervical neck strain and acute Pulmonary hypertension Hypertension Pyuria Preadmit: to [facility] ED with slurred speech, lethargy. Malnutrition [...] of this encounter (statuses as of 07/31/2022) [facility] History of Past illness Narrative* Problem [...] of clinical summary 04/08/2019 04/18/2019 Overview: Admit [facility] 03/21/19-03/22/19 Discharge diagnoses chronic kidney disease with worsening creatinine, acute kidney injury Hypokalemia Toxic encephalopathy secondary to Flexeril overusage Type 2 diabetes Ischemic cardiomyopathy Coronary artery disease Ligamental cervical neck strain and acute Pulmonary hypertension Hypertension Pyuria Preadmit: to [facility] ED with slurred speech, lethargy. Malnutrition [...] of this encounter (statuses as of 08/10/2022) [facility] History of Past illness Narrative* Problem [...] of clinical summary 04/08/2019 04/18/2019 Overview: Admit [facility] 03/21/19-03/22/19 Discharge diagnoses chronic kidney disease with worsening creatinine, acute kidney injury Hypokalemia Toxic encephalopathy secondary to Flexeril overusage Type 2 diabetes Ischemic cardiomyopathy Coronary artery disease Ligamental cervical neck strain and acute Pulmonary hypertension Hypertension Pyuria Preadmit: to [facility] ED with slurred speech, lethargy. Malnutrition [...] of this encounter (statuses as of 08/27/2022) [facility] History of Past illness Narrative* Problem Noted Date Resolved Date Transition of care performed with sharing of clinical summary 04/08/2019 04/18/2019 Overview: Admit [facility] 03/21/19 03/22/19 Discharge diagnoses chronic kidney disease with worsening creatinine, acute kidney injury Hypokalemia Toxic encephalopathy secondary to Flexeril overusage Type 2 diabetes Ischemic cardiomyopathy Coronary artery disease Ligamental cervical neck strain and acute Pulmonary hypertension Hypertension Pyuria Preadmit: to [facility] ED with slurred speech, lethargy. Altered mental status 03/24/2019 07/05/2019 CKD (chronic kidney disease) stage 3, GFR 30-59 ml/min 03/24/2019 04/18/2019 documented as of this encounter (statuses as of 11/14/2021) [facility] Jensen Claire [facility] Note Date/Time December 11, 2024 6:1 5pm [facility] Medical Records Department [address] [place] [address] Consultation - Cardiology 12/11/24 4318 MR#: [id number] Acct: [id number] Name: MAURI QUINONES Rep #:[id number] : [...] nephrology is been consulted for urgent dialysis. [facility] Medical History C. difficile diarrhea Anemia History of GI bleed Pure hypercholesterolemia Ischemic cardiomyopathy Essential hypertension Renal insufficiency Ankylosing spondylitis CAD (coronary artery disease) Overweight (BMI 25.0-29.9) Leg edema Leg swelling Acute systolic heart failure Bradycardia Biliary pleural effusion HTN (hypertension) Ventricular tachyarrhythmia Atherosclerosis of [place] coronary artery of [place] heart without angina pectoris Pulmonary HTN Cardiomyopathy [...] Applicable: No Charges/Coding Visit Charges Inpatient E&M: 92818 Init Hosp L3 Objective Data Vital Signs: [...] (Auto) 77.3 H, Lymph % (Auto) 7.7L, [place] % (Auto) 13.0 H, Eos % (Auto) [...] 77.3 H, Lymph % (Auto) 7.7 L, [place] % (Auto) 13.0 H, Eos % (Auto) [...] 12/11/24 15:10 IMPRESSION: CHF exacerbation. Reading Location: [facility] 12/11/241814 <Electronically signed by Jensen Claire MD> Cosigner Signature (if applicable): CC: Dr. Rigoberto Gould MD~ Signed [facility] Work Phone: Evaluation note* Diagnosis ESRD needing dialysis (HCC) End stage renal disease Bypass graft stenosis, initial encounter ([facility]) documented in this encounter [facility] Work Phone: Evaluation note* Diagnosis Hypertension, essential- Primary Unspecified essential hypertension Chronic kidney disease, stage IV (severe) (HCC) Chronic kidney disease, Stage IV (severe) Type 2 diabetes mellitus without complication, with long-term current use of insulin (HCC) [facility] Diagnosis Arteriosclerotic heart disease (ASHD)- Primary Coronary atherosclerosis of unspecified type of vessel, [place] or graft Mononeuropathy due to underlying disease [...] to underlying condition, unspecified proliferative retinopathy type ([facility]) [facility] Pre-transplant evaluation for kidney transplant- Primary [facility] Diagnosis Hypertension, essential- Primary Unspecified essential hypertension Type 2 diabetes mellitus without complication, with long-term current use of insulin ([facility]) [facility] Diagnosis Closed fracture of left lower extremity, sequela- Primary ESRD (end stage renal disease) on dialysis ([facility]) End stage renal disease Type 2 diabetes mellitus without complication, with long-term current use of insulin ([facility]) Hypertension, essential Unspecified essential hypertension JOHNY (obstructive sleep apnea) Obstructive sleep apnea (adult) (pediatric) C. difficile colitis Intestinal infection due to clostridium difficile Gastrointestinal hemorrhage, unspecified gastrointestinal hemorrhage type [facility] Diagnosis Diarrhea of infectious origin- Primary Diarrhea of presumed infectious origin [facility] Diagnosis C. difficile colitis- Primary Intestinal infection due to clostridium difficile Need for vaccination Need for prophylactic vaccination and inoculation against unspecified single disease Arteriosclerotic heart disease (ASHD) Coronary atherosclerosis of unspecified type of vessel, [place] or graft Hypertension, essential Unspecified essential hypertension Ischemic cardiomyopathy Other specified forms of chronic ischemic heart disease ESRD (end stage renal disease) on dialysis (HCC) End stage renal disease JOHNY (obstructive sleep apnea) Obstructive sleep apnea (adult) (pediatric) [facility] Diagnosis C. difficile diarrhea- Primary Intestinal infection due to clostridium difficile [facility] Diagnosis Mononeuropathy due to underlying disease- Primary PVD (peripheral vascular disease) ([facility]) Peripheral vascular disease, unspecified 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 due to underlying condition, unspecified proliferative retinopathy type ([facility]) ESRD (end stage renal disease) on dialysis ([facility]) End stage renal disease Chronic combined systolic and diastolic CHF (congestive heart failure) ([facility]) Chronic combined systolic and diastolic heart failure Ankylosing spondylitis of multiple sites in spine ([facility]) Ankylosing spondylitis Hypertension, essential Unspecified essential hypertension Ischemic cardiomyopathy Other specified forms of chronic ischemic heart disease JOHNY (obstructive sleep apnea) Obstructive sleep apnea (adult) (pediatric) Osteopenia, senile Disorder of bone and cartilage, unspecified Screening for colon cancer Special screening for malignant neoplasms, colon Type 2 diabetes mellitus without complication, with long-term current use of insulin ([facility]) [facility] Diagnosis URI, acute- Primary Acute upper respiratory infections of unspecified site [facility] Diagnosis 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- Primary Neoplasm of uncertain behavior of skin [facility] 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 Neoplasm of uncertain behavior of skin [facility] Diagnosis Skin lesion of right [...] Ankylosing spondylitis of multiple sites in spine ([facility]) Ankylosing spondylitis PVD (peripheral vascular disease) ([facility]) Peripheral vascular disease, unspecified Acute pain of [...] apnea (adult) (pediatric) PVD (peripheral vascular disease) ([facility]) Peripheral vascular disease, unspecified [facility] Diagnosis Other closed fracture of proximal end of right tibia, initial encounter- Primary [facility] Diagnosis Right knee pain, unspecified chronicity [facility] Diagnosis Right knee pain, unspecified chronicity [facility] Diagnosis Acute pain of right knee Acute right ankle pain [facility] Diagnosis Acute right ankle pain [facility] Diagnosis Acute right ankle pain- Primary [facility] Diagnosis Acute right ankle pain- Primary Arthritis of right midfoot Stress fracture of navicular bone of right foot Acute right ankle pain [facility] Diagnosis Pain Generalized pain [facility] Diagnosis Ischemic cardiomyopathy- Primary Other specified forms of chronic ischemic heart disease Screening for diabetic retinopathy Screening for other eye conditions Screening for depression Encounter for screening examination for other mental health and behavioral disorders Arteriosclerotic heart disease (ASHD) Coronary atherosclerosis of unspecified type of vessel, [place] or graft Chronic kidney disease (CKD), stage V ([facility]) Chronic kidney disease, Stage V Encounter for immunization Need for other specified prophylactic vaccination against single bacterial disease Gastrointestinal hemorrhage, unspecified gastrointestinal hemorrhage type Type 2 diabetes mellitus without complication, with long-term current use of insulin ([facility]) PVD (peripheral vascular disease) ([facility]) Peripheral vascular disease, unspecified Hypertension, essential Unspecified essential hypertension ESRD (end stage renal disease) on dialysis ([facility]) End stage renal disease [facility] Diagnosis ED (erectile dysfunction) of organic origin- Primary Impotence of organic origin Gastrointestinal hemorrhage, unspecified gastrointestinal hemorrhage type Type 2 diabetes mellitus without complication, with long-term current use of insulin ([facility]) [facility] Diagnosis Stress fracture of navicular bone of right foot- Primary Other closed fracture of proximal end of right tibia, initial encounter [facility] Diagnosis Acute pain of right knee- Primary Right thigh pain Pain in limb Pain in right hip Pain in joint, pelvic region and thigh [facility] Diagnosis Nausea- Primary Nausea alone Gastroenteritis Other and unspecified noninfectious gastroenteritis and colitis ESRD (end stage renal disease) on dialysis ([facility]) End stage renal disease [facility] Diagnosis Instability of prosthetic knee, initial encounter ([facility]) ([facility])- Primary Weakness of right quadriceps muscle 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 [facility] Diagnosis Pain in right hip Pain in joint, pelvic region and thigh Acute pain of right knee Right thigh pain Pain in limb [facility] Diagnosis Instability of prosthetic knee, initial encounter ([facility]) ([facility])- Primary [facility] Diagnosis Mechanical complication of internal orthopedic device, implant or graft, initial encounter ([facility])- Primary [facility] Diagnosis Itching- Primary Unspecified pruritic disorder Type 2 diabetes mellitus without complication, with long-term current use of insulin ([facility]) [facility] Diagnosis Status post total replacement of right hip- Primary [facility] Diagnosis Right leg pain- Primary Pain in limb documented in this encounter [facility] note* Diagnosis Status post total replacement of right hip [facility] Diagnosis Pain of right hip- Primary Status post right hip replacement Hip joint replacement by other means [facility] Diagnosis Pain of right hip [facility] Diagnosis Pain of right hip Status post right hip replacement Hip joint replacement by other means [facility] Diagnosis Chronic insomnia- Primary Insomnia, unspecified URI, acute Acute upper respiratory infections of unspecified site Type 2 diabetes mellitus without complication, with long-term current use of insulin ([facility]) Arteriosclerotic heart disease (ASHD) Coronary atherosclerosis of unspecified type of vessel, [place] or graft [facility] Diagnosis Pain of right hip- Primary Pain of right hip [facility] Diagnosis Urinary tract infection without hematuria, site unspecified- Primary Urinary retention Retention of urine, unspecified [facility] Diagnosis Chronic insomnia Insomnia, unspecified [facility] Diagnosis Urinary retention- Primary Retention of urine, unspecified [facility] Diagnosis Urine retention- Primary Retention of urine, unspecified [facility] Author Mary Jo Granados [facility] Note Date/Time December 11, 2024 5:1 8pm [facility] Medical Records Department [address] [place] [address] H&P Exam - Hospitalist 12/11/24 1652 MR#: [id number] Acct: [id number] Name: MAURI QUINONES Rep #:[id number] : [...] Former tobacco use who presents to the [facility] ED on 12/11/24 with history of [...] was also recently taken off of his beta-rufsu therapy secondary to issues with low blood [...] and no concern for peaked T waves. [facility] Medical History C. difficile diarrhea Anemia History of GI bleed Pure hypercholesterolemia Ischemic cardiomyopathy Essential hypertension Renal insufficiency Ankylosing spondylitis CAD (coronary artery disease) Overweight (BMI 25.0-29.9) Leg edema Leg swelling Acute systolic heart failure Bradycardia Biliary pleural effusion HTN (hypertension) Ventricular tachyarrhythmia Atherosclerosis of [place] coronary artery of [place] heart without angina pectoris Pulmonary HTN Cardiomyopathy [...] (Auto) 77.3 H, Lymph % (Auto) 7.7L, [place] % (Auto) 13.0 H, Eos % (Auto) [...] 12/11/24 15:10 IMPRESSION: CHF exacerbation. Reading Location: [facility] Assessment & Plan Assessment/Plan (1) Acute hyperkalemia: [...] Former tobacco use who presents to the [facility] ED on 12/11/24 with history of [...] SVG to PDA in March 2017 at [facility]), if able to tolerate will continue aspirin, [...] 16 minutes. Charges/Coding Visit Charges Inpatient E&M: 69326 Init Hosp L3 Procedures Hospitalists Procedures: 68083 Advncd Care Plan 30 Min 12/11/24 1718 <Electronically signed by Mary Jo Granados MD> Cosigner Signature (if applicable): CC: Dr. Mary Jo Granados MD; Dr. Rigoberto Gould MD~ Signed [facility] Work Phone: Reason for referral (narrative)* Diagnostic Procedure Only (Routine) - Closed Specialty Diagnoses / Procedures Referred By Contac t Referred To Contact XR IMAGING Diagnoses Acute right ankle pain Procedures XR ANKLE GENERAL 3V AP/LAT/OBL RIGHT RADEX ANKLE COMPLETE MINIMUM 3 VIEWS Nupur De La Rosa MD [address] [place] [address] [place] [address] Referral ID Status Reason Start Date Expiration Date V isits Requested Visits Authorized [id number] Closed Auto-Generate d Referral 02/13/2024 03/14/2025 1 1 * Diagnostic Procedure Only (Routine) - Closed Specialty Diagnoses / Procedures Referred By Contac t Referred To Contact XR IMAGING Diagnoses Acute pain of right knee Procedures XR KNEE INJURY 4V AP/LAT/OBLS RIGHT RADIOLOGIC EXAM KNEE COMPLETE 4/MORE VIEWS Nupur De La Rosa MD [address] [place] [id number] [place] [address] Referral ID Status Reason Start Date Expiration Date V isits Requested Visits Authorized [id number] Closed Auto-Generate d Referral 02/13/2024 03/14/2025 1 1 [facility] for referral (narrative)* Diagnostic Procedure Only (Routine) - Closed Specialty Diagnoses / Procedures Referred By Contac t Referred To Contact XR IMAGING Diagnoses Right knee pain, unspecified chronicity Procedures XR KNEE INJURY 4V AP/LAT/OBLS RIGHT RADIOLOGIC EXAM KNEE COMPLETE 4/MORE VIEWS Ra Whatley PA-C [address] [place] [address] [place] [address] Referral ID Status Reason Start Date Expiration Date V isits Requested Visits Authorized [id number] Closed Auto-Generate d Referral 03/12/2024 04/11/2025 1 1 [facility] for referral (narrative)* Diagnostic Procedure Only (Routine) - Closed Specialty Diagnoses / Procedures Referred By Contac t Referred To Contact XR IMAGING Diagnoses Right knee pain, unspecified chronicity Procedures XR KNEE INJURY 4V AP/LAT/OBLS RIGHT RADIOLOGIC EXAM KNEE COMPLETE 4/MORE VIEWS Ra Whatley PA-C [address] [place] [address] [place] [address] Referral ID Status Reason Start Date Expiration Date V isits Requested Visits Authorized [id number] Closed Auto-Generate d Referral 02/18/2024 03/19/2025 1 1 [facility] for referral (narrative)* Diagnostic Procedure Only (Routine) - Closed Specialty Diagnoses / Procedures Referred By Contac t Referred To Contact XR IMAGING Diagnoses Acute right ankle pain Procedures XR ANKLE GENERAL 3V AP/LAT/OBL RIGHT RADEX ANKLE COMPLETE MINIMUM 3 VIEWS Nupur De La Rosa MD [address] [address] [place] [address] Referral ID Status Reason Start Date Expiration Date V isits Requested Visits Authorized [id number] Closed Auto-Generate d Referral 02/13/2024 03/14/2025 1 1 * Diagnostic Procedure Only (Routine) - Closed Specialty Diagnoses / Procedures Referred By Contac t Referred To Contact XR IMAGING Diagnoses Acute pain of right knee Procedures XR KNEE INJURY 4V AP/LAT/OBLS RIGHT RADIOLOGIC EXAM KNEE COMPLETE 4/MORE VIEWS Nupur De La Rosa MD [address] [place] [address] [place] [address] Referral ID Status Reason Start Date Expiration Date V isits Requested Visits Authorized [id number] Closed Auto-Generate d Referral 02/13/2024 03/14/2025 1 1 [facility] for referral (narrative)* Diagnostic Procedure Only (Routine) - Closed Specialty Diagnoses / Procedures Referred By Contac t Referred To Contact XR IMAGING Diagnoses Acute right ankle pain Procedures XR ANKLE GENERAL 3V AP/LAT/OBL RIGHT RADEX ANKLE COMPLETE MINIMUM 3 VIEWS Nupur De La Rosa MD [address] [place] [address] [place] [address] Referral ID Status Reason Start Date Expiration Date V isits Requested Visits Authorized [id number] Closed Auto-Generate d Referral 05/07/2024 06/06/2025 1 1 [facility] for referral (narrative)* Diagnostic Procedure Only (Routine) - New Request Specialty Diagnoses / Procedures Referred By Contac t Referred To Contact XR IMAGING Diagnoses Acute pain of right knee Right thigh pain Procedures XR FEMUR GENERAL 2V AP/LAT RIGHT RADIOLOGIC EXAMINATION FEMUR MINIMUM 2 VIEWS Maco Rivera PA-C [address] [place] [address] [place] [address] Referral ID Status Reason Start Date Expiration Date Visits Requested Visits Authorized [id number] New Request Auto-Generat ed Referral 08/28/2024 09/27/2025 1 1 * Diagnostic Procedure Only (Routine) - New Request Specialty Diagnoses / Procedures Referred By Contac t Referred To Contact XR IMAGING Diagnoses Pain in right hip Procedures XR PELVIS 1V AP RADIOLOGIC EXAMINATION PELVIS 1/2 VIEWS Maco Rivera PA-C [address] [place] [address] [place] [address] Referral ID Status Reason Start Date Expiration Date Visits Requested Visits Authorized [id number] New Request Auto-Generat ed Referral 08/28/2024 09/27/2025 1 1 [facility] for referral (narrative)No reason for referral information availableW[facility] Phone: Reason for visit Narrative* Diagnostic Procedure Only (Routine) - Closed Specialty Diagnoses / Procedures Referred By Contac t Referred To Contact XR IMAGING Diagnoses Right knee pain, unspecified chronicity Procedures XR KNEE INJURY 4V AP/LAT/OBLS RIGHT RADIOLOGIC EXAM KNEE COMPLETE 4/MORE VIEWS Ra Whatley PA-C [address] [place] [address] [place] [address] Referral ID Status Reason Start Date Expiration Date V isits Requested Visits Authorized [id number] Closed Auto-Generate d Referral 03/12/2024 04/11/2025 1 1 [facility] for visit Narrative* Diagnostic Procedure Only (Routine) - Closed Specialty Diagnoses / Procedures Referred By Contac t Referred To Contact XR IMAGING Diagnoses Right knee pain, unspecified chronicity Procedures XR KNEE INJURY 4V AP/LAT/OBLS RIGHT RADIOLOGIC EXAM KNEE COMPLETE 4/MORE VIEWS Ra Whatley PA-C [address] [place] [address] [place] [address] Referral ID Status Reason Start Date Expiration Date V isits Requested Visits Authorized [id number] Closed Auto-Generate d Referral 02/18/2024 03/19/2025 1 1 [facility] for visit Narrative* Diagnostic Procedure Only (Routine) - Closed Specialty Diagnoses / Procedures Referred By Contac t Referred To Contact XR IMAGING Diagnoses Acute right ankle pain Procedures XR ANKLE GENERAL 3V AP/LAT/OBL RIGHT RADEX ANKLE COMPLETE MINIMUM 3 VIEWS Nupur De La Rosa MD [address] [address] [place] [address] Referral ID Status Reason Start Date Expiration Date V isits Requested Visits Authorized [id number] Closed Auto-Generate d Referral 02/13/2024 03/14/2025 1 1 [facility] for visit Narrative* Diagnostic Procedure Only (Routine) - Closed Specialty Diagnoses / Procedures Referred By Contac t Referred To Contact XR IMAGING Diagnoses 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 Procedures XR TIBIA FIBULA 2V AP/LAT RIGHT RADIOLOGIC EXAMINATION TIBIA & FIBULA 2 VIEWS Alexus Mendez, LIQUIFIED NATURAL GAS SPECIALIST.ANGIOGRAPHER [address] [place] [address] [place] [address] Referral ID Status Reason Start Date Expiration Date V isits Requested Visits Authorized [id number] Closed Auto-Generate d Referral 11/08/2023 12/07/2024 1 1 [facility] for visit Narrative* Diagnostic Procedure Only (Routine) - Closed Specialty Diagnoses / Procedures Referred By Contac t Referred To Contact XR IMAGING Diagnoses Acute right ankle pain Procedures XR ANKLE GENERAL 3V AP/LAT/OBL RIGHT RADEX ANKLE COMPLETE MINIMUM 3 VIEWS Nupur De La Rosa MD [address] [address] [place] [address] Referral ID Status Reason Start Date Expiration Date V isits Requested Visits Authorized [id number] Closed Auto-Generate d Referral 05/07/2024 06/06/2025 1 1 [facility] for visit Narrative* Diagnostic Procedure Only (Routine) - Closed Specialty Diagnoses / Procedures Referred By Contac t Referred To Contact XR IMAGING Diagnoses Pain Procedures XR ANKLE GENERAL 3V AP/LAT/OBL RIGHT RADEX ANKLE COMPLETE MINIMUM 3 VIEWS Ra Whatley PA-C [address] [place] [address] [place] [address] Referral ID Status Reason Start Date Expiration Date V isits Requested Visits Authorized [id number] Closed Auto-Generate d Referral 06/05/2024 07/05/2025 1 1 [facility] for visit Narrative* Diagnostic Procedure Only (Routine) - Closed Specialty Diagnoses / Procedures Referred By Contac t Referred To Contact XR IMAGING Diagnoses Pain in right hip Procedures XR PELVIS 1V AP RADIOLOGIC EXAMINATION PELVIS 1/2 VIEWS Maco Rivera PA-C [address] [place] [address] [place] [address] Referral ID Status Reason Start Date Expiration Date V isits Requested Visits Authorized [id number] Closed Auto-Generate d Referral 08/28/2024 09/27/2025 1 1 [facility] for visit Narrative* Diagnostic Procedure Only (Routine) - Closed Specialty Diagnoses / Procedures Referred By Contac t Referred To Contact XR IMAGING Diagnoses Status post total replacement of right hip Procedures XR FEMUR GENERAL 2V AP/LAT RIGHT RADIOLOGIC EXAMINATION FEMUR MINIMUM 2 VIEWS Maco Rivera PA-C [address] [place] [address] Phone: tel: fax: [place] [address] Referral ID Status Reason Start Date Expiration Date V isits Requested Visits Authorized [id number] Closed Auto-Generate d Referral 11/12/2024 12/12/2025 1 1 [facility] for visit Narrative* Diagnostic Procedure Only (Routine) - Closed Specialty Diagnoses / Procedures Referred By Contac t Referred To Contact MOLECULAR & FUNCTIONAL IMAGING Diagnoses Pain of right hip Procedures NM BONE 3 PHASE BONE &/JOINT IMAGING 3 PHASE STUDY Nupur De La Rosa MD [address] [address] Phone: tel: fax: Molecular Imaging [address] [place] [address] Phone: tel: Referral ID Status Reason Start Date Expiration Date V isits Requested Visits Authorized [id number] Closed Auto-Generate d Referral 11/14/2024 12/14/2025 1 1 [facility] Summary Purpose Family History No Family [...] Documents on File Type Date Recorded Patient Behavioral Health Counselor Expl anation Advance Directive(s) 03/23/2019 8:23 PM [...] Do you have a Healthcare Power of Biomass Production Manager? No December 11, 2024 2:16pm Advance Directives No June 16, 2015 4:05pm Advance Directive Response Recorded Date/ Time Living Will No December 11, 2024 7:31pm Do you have a Healthcare Power of Biomass Production Manager? No December 11, 2024 7:31pm Advance Directives No June 16, 2015 4:05pm Advance Directive Response Recorded Date/ Time Living Will No December 11, 2024 7:31pm Do you have a Healthcare Power of Biomass Production Manager? No December 11, 2024 7:31pm Do you have a Healthcare Power of Biomass Production Manager? No December 22, 2024 6:54pm Do you have a Healthcare Power of Biomass Production Manager? No January 06, 2025 6:20pm Do you have a Healthcare Power of Biomass Production Manager? Yes December 29, 2024 4:02pm Advance Directives No June 16, 2015 4:05pm Hospital Course Note [facility] Patient Name: VALENTE QUINONES Boardvote Date of : [address] [address] Unit Number: [id number] Number: [id number] Summary Patient Status: DIS INAttending Doctor: Jensen [...] is a 62-year-old male who presented to [facility] on 07/17/2018 for ascheduled cephallomedullary nail removal and right total hip arthroplasty by (more content not included)... Note HNO ID: [id number] Author: Wallace Marcial Service: Hospital Medicine Author [...] through Care Everywhere. * Hemodialysis Vascular Access (Tongan) * Hemodialysis: Vascular Access Surgery: General Info (Tongan) documented in this encounter* Instructions* Candice Tellez [...] Access Nick Mancilla MD [address] [place] [address] Specialty Diagnoses / Procedures Referred By Contac t Referred To Contact Gastroenterology Diagnoses C. difficile colitis Gastrointestinal hemorrhage, unspecified gastrointestinal hemorrhage type Procedures CONSULT TO GASTROENTEROLOGY OFFICE/OUTPATIENT [facility] 60-74 MINUTES Rigoberto Gould MD [address] [place] [address] Referral ID Status Reason Start Date Expiration Date Visits Requested Visits Authorized [id number] Authorized PCP Requested Referral 2 06/05/2023 1 1 Specialty Diagnoses / Procedures Referred By Contac t Referred To Contact Aditya Davis PA-C [address] [place] [id number] Referral ID Status Reason Start Date Expiration Date Visits Re quested Visits Authorized [id number] Closed 1 1 Specialty Diagnoses / Procedures Referred By Contac t Referred To Contact Gastroenterology Diagnoses C. 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 Procedures CONSULT TO GENERAL SURGERY OFFICE/OUTPATIENT [facility] 60 MINUTES Alexus Mendez APRN.PHONE REPRESENTATIVE [address] [place] [address] Referral ID Status Reason Start Date Expiration Date Visits Requested Visits Authorized [id number] Authorized PCP Requested Referral 11/08/2023 11/07/2024 1 1 Specialty Diagnoses / Procedures Referred By Contwero t Referred To Contact XR IMAGING Diagnoses 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 Procedures XR TIBIA FIBULA 2V AP/LAT RIGHT RADIOLOGIC EXAMINATION TIBIA & FIBULA 2 VIEWS Alexus Mendez, LIQUIFIED NATURAL GAS SPECIALIST.PHONE REPRESENTATIVE [address] [facility] [place] [address] [place] [address] Referral ID Status Reason Start Date Expiration Date V isits Requested Visits Authorized [id number] Closed Auto-Generate d Referral 11/08/2023 12/07/2024 1 [...] Reason for Visit Admit Date Atherosclerosis of [place] co ronary artery of [place] heart without angina October 28, 2024 12:52pm [...] Reason for Visit Admit Date Atherosclerosis of [place] co ronary artery of [place] heart without angina October 28, 2024 12:52pm [...] Reason for Visit Admit Date Atherosclerosis of [place] co ronary artery of [place] heart without angina October 28, 2024 12:52pm [...] fibrillation December 26, 2024 12:56pm Atherosclerosis of [place] co ronary artery of [place] heart without angina December 26, 2024 12:56pm [...] section and content) DATE CREATED AUTHOR 06/27/2018 [facility] ([place]) DATE CREATED AUTHOR AUTHOR'S ORGANIZ ATION 08/04/2018 [facility] [place] DATE CREATED AUTHOR AUTHOR'S ORGANIZ ATION 04/07/2019 [facility] DATE CREATED AUTHOR AUTHOR'S ORGANIZ ATION 07/18/2019 [facility] DATE CREATED AUTHOR AUTHOR'S ORGANIZ ATION 03/11/2021 [facility] DATE CREATED AUTHOR AUTHOR'S ORGANIZ ATION 03/15/2022 [facility] DATE CREATED AUTHOR AUTHOR'S ORGANIZ ATION 04/07/2023 [facility] DATE CREATED AUTHOR AUTHOR'S ORGANIZ ATION 04/25/2023 [facility] DATE CREATED AUTHOR AUTHOR'S ORGANIZ ATION 01/21/2025 [facility] DATE CREATED AUTHOR AUTHOR'S ORGANIZ ATION 01/23/2025 [facility] DATE CREATED AUTHOR AUTHOR'S ORGANIZ ATION 01/24/2025 [facility] Ordered Prescriptions (unrec ognized section and [...] or prosecute any alcohol or drug abuse patient.[facility] the event this information is protected by the Federal Confidentiality of Alcohol and Drug Abuse Patient Records regulations: The Federal rules restrict any use of the information to criminally investigate or prosecute any alcohol or drug abuse patient.[facility] HospitalIn the event this information is protected by the Federal Confidentiality of Alcohol and Drug Abuse Patient Records regulations: The Federal rules restrict any use of the information to criminally investigate or prosecute any alcohol or drug abuse patient.[facility] HospitalIn the event this information is protected by the Federal Confidentiality of Alcohol and Drug Abuse Patient Records regulations: The Federal rules restrict any use of the information to criminally investigate or prosecute any alcohol or drug abuse patient.[facility] HospitalIn the event this information is protected by the Federal Confidentiality of Alcohol and Drug Abuse Patient Records regulations: The Federal rules restrict any use of the information to criminally investigate or prosecute any alcohol or drug abuse patient.[facility] HospitalIn the event this information is protected by the Federal Confidentiality of Alcohol and Drug Abuse Patient Records regulations: The Federal rules restrict any use of the information to criminally investigate or prosecute any alcohol or drug abuse patient.[facility] HospitalIn the event this information is protected by the Federal Confidentiality of Alcohol and Drug Abuse Patient Records regulations: The Federal rules restrict any use of the information to criminally investigate or prosecute any alcohol or drug abuse patient.[facility] HospitalIn the event this information is protected by the Federal Confidentiality of Alcohol and Drug Abuse Patient Records regulations: The Federal rules restrict any use of the information to criminally investigate or prosecute any alcohol or drug abuse patient.[facility] HospitalIn the event this information is protected by the Federal Confidentiality of Alcohol and Drug Abuse Patient Records regulations: The Federal rules restrict any use of the information to criminally investigate or prosecute any alcohol or drug abuse patient.[facility] HospitalIn the event this information is protected by the Federal Confidentiality of Alcohol and Drug Abuse Patient Records regulations: The Federal rules restrict any use of the information to criminally investigate or prosecute any alcohol or drug abuse patient.[facility] HospitalIn the event this information is protected by the Federal Confidentiality of Alcohol and Drug Abuse Patient Records regulations: The Federal rules restrict any use of the information to criminally investigate or prosecute any alcohol or drug abuse patient.[facility] HospitalIn the event this information is protected by the Federal Confidentiality of Alcohol and Drug Abuse Patient Records regulations: The Federal rules restrict any use of the information to criminally investigate or prosecute any alcohol or drug abuse patient.[facility] HospitalIn the event this information is protected by the Federal Confidentiality of Alcohol and Drug Abuse Patient Records regulations: The Federal rules restrict any use of the information to criminally investigate or prosecute any alcohol or drug abuse patient.[facility] HospitalIn the event this information is protected by the Federal Confidentiality of Alcohol and Drug Abuse Patient Records regulations: The Federal rules restrict any use of the information to criminally investigate or prosecute any alcohol or drug abuse patient.[facility] HospitalIn the event this information is protected by the Federal Confidentiality of Alcohol and Drug Abuse Patient Records regulations: The Federal rules restrict any use of the information to criminally investigate or prosecute any alcohol or drug abuse patient.[facility] HospitalIn the event this information is protected by the Federal Confidentiality of Alcohol and Drug Abuse Patient Records regulations: The Federal rules restrict any use of the information to criminally investigate or prosecute any alcohol or drug abuse patient.[facility] HospitalIn the event this information is protected by the Federal Confidentiality of Alcohol and Drug Abuse Patient Records regulations: The Federal rules restrict any use of the information to criminally investigate or prosecute any alcohol or drug abuse patient.[facility] HospitalIn the event this information is protected by the Federal Confidentiality of Alcohol and Drug Abuse Patient Records regulations: The Federal rules restrict any use of the information to criminally investigate or prosecute any alcohol or drug abuse patient.[facility] HospitalIn the event this information is protected by the Federal Confidentiality of Alcohol and Drug Abuse Patient Records regulations: The Federal rules restrict any use of the information to criminally investigate or prosecute any alcohol or drug abuse patient.[facility] HospitalIn the event this information is protected by the Federal Confidentiality of Alcohol and Drug Abuse Patient Records regulations: The Federal rules restrict any use of the information to criminally investigate or prosecute any alcohol or drug abuse patient.[facility] HospitalIn the event this information is protected by the Federal Confidentiality of Alcohol and Drug Abuse Patient Records regulations: The Federal rules restrict any use of the information to criminally investigate or prosecute any alcohol or drug abuse patient.[facility] HospitalIn the event this information is protected by the Federal Confidentiality of Alcohol and Drug Abuse Patient Records regulations: The Federal rules restrict any use of the information to criminally investigate or prosecute any alcohol or drug abuse patient.[facility] HospitalIn the event this information is protected by the Federal Confidentiality of Alcohol and Drug Abuse Patient Records regulations: The Federal rules restrict any use of the information to criminally investigate or prosecute any alcohol or drug abuse patient.[facility] HospitalIn the event this information is protected by the Federal Confidentiality of Alcohol and Drug Abuse Patient Records regulations: The Federal rules restrict any use of the information to criminally investigate or prosecute any alcohol or drug abuse patient.[facility] HospitalIn the event this information is protected by the Federal Confidentiality of Alcohol and Drug Abuse Patient Records regulations: The Federal rules restrict any use of the information to criminally investigate or prosecute any alcohol or drug abuse patient.[facility] HospitalIn the event this information is protected by the Federal Confidentiality of Alcohol and Drug Abuse Patient Records regulations: The Federal rules restrict any use of the information to criminally investigate or prosecute any alcohol or drug abuse patient.[facility] HospitalIn the event this information is protected by the Federal Confidentiality of Alcohol and Drug Abuse Patient Records regulations: The Federal rules restrict any use of the information to criminally investigate or prosecute any alcohol or drug abuse patient.[facility] HospitalIn the event this information is protected by the Federal Confidentiality of Alcohol and Drug Abuse Patient Records regulations: The Federal rules restrict any use of the information to criminally investigate or prosecute any alcohol or drug abuse patient.[facility] HospitalIn the event this information is protected by the Federal Confidentiality of Alcohol and Drug Abuse Patient Records regulations: The Federal rules restrict any use of the information to criminally investigate or prosecute any alcohol or drug abuse patient.[facility] HospitalIn the event this information is protected by the Federal Confidentiality of Alcohol and Drug Abuse Patient Records regulations: The Federal rules restrict any use of the information to criminally investigate or prosecute any alcohol or drug abuse patient.[facility] HospitalIn the event this information is protected by the Federal Confidentiality of Alcohol and Drug Abuse Patient Records regulations: The Federal rules restrict any use of the information to criminally investigate or prosecute any alcohol or drug abuse patient.[facility] HospitalIn the event this information is protected by the Federal Confidentiality of Alcohol and Drug Abuse Patient Records regulations: The Federal rules restrict any use of the information to criminally investigate or prosecute any alcohol or drug abuse patient.[facility] HospitalIn the event this information is protected by the Federal Confidentiality of Alcohol and Drug Abuse Patient Records regulations: The Federal rules restrict any use of the information to criminally investigate or prosecute any alcohol or drug abuse patient.[facility] HospitalIn the event this information is protected by the Federal Confidentiality of Alcohol and Drug Abuse Patient Records regulations: The Federal rules restrict any use of the information to criminally investigate or prosecute any alcohol or drug abuse patient.[facility] HospitalIn the event this information is protected by the Federal Confidentiality of Alcohol and Drug Abuse Patient Records regulations: The Federal rules restrict any use of the information to criminally investigate or prosecute any alcohol or drug abuse patient.[facility] HospitalIn the event this information is protected by the Federal Confidentiality of Alcohol and Drug Abuse Patient Records regulations: The Federal rules restrict any use of the information to criminally investigate or prosecute any alcohol or drug abuse patient.[facility] HospitalIn the event this information is protected by the Federal Confidentiality of Alcohol and Drug Abuse Patient Records regulations: The Federal rules restrict any use of the information to criminally investigate or prosecute any alcohol or drug abuse patient.[facility] HospitalIn the event this information is protected by the Federal Confidentiality of Alcohol and Drug Abuse Patient Records regulations: The Federal rules restrict any use of the information to criminally investigate or prosecute any alcohol or drug abuse patient.[facility] [facility] HospitalIn the event this information is protected by the Federal Confidentiality of Alcohol and Drug Abuse Patient Records regulations: The Federal rules restrict any use of the information to criminally investigate or prosecute any alcohol or drug abuse patient.[facility] HospitalIn the event this information is protected by the Federal Confidentiality of Alcohol and Drug Abuse Patient Records regulations: The Federal rules restrict any use of the information to criminally investigate or prosecute any alcohol or drug abuse patient.[facility] HospitalIn the event this information is protected by the Federal Confidentiality of Alcohol and Drug Abuse Patient Records regulations: The Federal rules restrict any use of the information to criminally investigate or prosecute any alcohol or drug abuse patient.[facility] HospitalIn the event this information is protected by the Federal Confidentiality of Alcohol and Drug Abuse Patient Records regulations: The Federal rules restrict any use of the information to criminally investigate or prosecute any alcohol or drug abuse patient.[facility] HospitalIn the event this information is protected by the Federal Confidentiality of Alcohol and Drug Abuse Patient Records regulations: The Federal rules restrict any use of the information to criminally investigate or prosecute any alcohol or drug abuse patient.[facility] HospitalIn the event this information is protected by the Federal Confidentiality of Alcohol and Drug Abuse Patient Records regulations: The Federal rules restrict any use of the information to criminally investigate or prosecute any alcohol or drug abuse patient.[facility] HospitalIn the event this information is protected by the Federal Confidentiality of Alcohol and Drug Abuse Patient Records regulations: The Federal rules restrict any use of the information to criminally investigate or prosecute any alcohol or drug abuse patient.[facility] HospitalIn the event this information is protected by the Federal Confidentiality of Alcohol and Drug Abuse Patient Records regulations: The Federal rules restrict any use of the information to criminally investigate or prosecute any alcohol or drug abuse patient.[facility] HospitalIn the event this information is protected by the Federal Confidentiality of Alcohol and Drug Abuse Patient Records regulations: The Federal rules restrict any use of the information to criminally investigate or prosecute any alcohol or drug abuse patient.[facility] HospitalIn the event this information is protected by the Federal Confidentiality of Alcohol and Drug Abuse Patient Records regulations: The Federal rules restrict any use of the information to criminally investigate or prosecute any alcohol or drug abuse patient.[facility] HospitalIn the event this information is protected by the Federal Confidentiality of Alcohol and Drug Abuse Patient Records regulations: The Federal rules restrict any use of the information to criminally investigate or prosecute any alcohol or drug abuse patient.[facility] HospitalIn the event this information is protected by the Federal Confidentiality of Alcohol and Drug Abuse Patient Records regulations: The Federal rules restrict any use of the information to criminally investigate or prosecute any alcohol or drug abuse patient.[facility] HospitalIn the event this information is protected by the Federal Confidentiality of Alcohol and Drug Abuse Patient Records regulations: The Federal rules restrict any use of the information to criminally investigate or prosecute any alcohol or drug abuse patient.[facility] HospitalIn the event this information is protected by the Federal Confidentiality of Alcohol and Drug Abuse Patient Records regulations: The Federal rules restrict any use of the information to criminally investigate or prosecute any alcohol or drug abuse patient.[facility] HospitalIn the event this information is protected by the Federal Confidentiality of Alcohol and Drug Abuse Patient Records regulations: The Federal rules restrict any use of the information to criminally investigate or prosecute any alcohol or drug abuse patient.[facility] HospitalIn the event this information is protected by the Federal Confidentiality of Alcohol and Drug Abuse Patient Records regulations: The Federal rules restrict any use of the information to criminally investigate or prosecute any alcohol or drug abuse patient.[facility] HospitalIn the event this information is protected by the Federal Confidentiality of Alcohol and Drug Abuse Patient Records regulations: The Federal rules restrict any use of the information to criminally investigate or prosecute any alcohol or drug abuse patient.[facility] HospitalIn the event this information is protected by the Federal Confidentiality of Alcohol and Drug Abuse Patient Records regulations: The Federal rules restrict any use of the information to criminally investigate or prosecute any alcohol or drug abuse patient.[facility] HospitalIn the event this information is protected by the Federal Confidentiality of Alcohol and Drug Abuse Patient Records regulations: The Federal rules restrict any use of the information to criminally investigate or prosecute any alcohol or drug abuse patient.[facility] HospitalIn the event this information is protected by the Federal Confidentiality of Alcohol and Drug Abuse Patient Records regulations: The Federal rules restrict any use of the information to criminally investigate or prosecute any alcohol or drug abuse patient.[facility] HospitalIn the event this information is protected by the Federal Confidentiality of Alcohol and Drug Abuse Patient Records regulations: The Federal rules restrict any use of the information to criminally investigate or prosecute any alcohol or drug abuse patient.[facility] HospitalIn the event this information is protected by the Federal Confidentiality of Alcohol and Drug Abuse Patient Records regulations: The Federal rules restrict any use of the information to criminally investigate or prosecute any alcohol or drug abuse patient.[facility] HospitalIn the event this information is protected by the Federal Confidentiality of Alcohol and Drug Abuse Patient Records regulations: The Federal rules restrict any use of the information to criminally investigate or prosecute any alcohol or drug abuse patient.[facility] HospitalIn the event this information is protected by the Federal Confidentiality of Alcohol and Drug Abuse Patient Records regulations: The Federal rules restrict any use of the information to criminally investigate or prosecute any alcohol or drug abuse patient.[facility] HospitalIn the event this information is protected by the Federal Confidentiality of Alcohol and Drug Abuse Patient Records regulations: The Federal rules restrict any use of the information to criminally investigate or prosecute any alcohol or drug abuse patient.[facility] HospitalIn the event this information is protected by the Federal Confidentiality of Alcohol and Drug Abuse Patient Records regulations: The Federal rules restrict any use of the information to criminally investigate or prosecute any alcohol or drug abuse patient.[facility] HospitalIn the event this information is protected by the Federal Confidentiality of Alcohol and Drug Abuse Patient Records regulations: The Federal rules restrict any use of the information to criminally investigate or prosecute any alcohol or drug abuse patient.[facility] HospitalIn the event this information is protected by the Federal Confidentiality of Alcohol and Drug Abuse Patient Records regulations: The Federal rules restrict any use of the information to criminally investigate or prosecute any alcohol or drug abuse patient.[facility] HospitalIn the event this information is protected by the Federal Confidentiality of Alcohol and Drug Abuse Patient Records regulations: The Federal rules restrict any use of the information to criminally investigate or prosecute any alcohol or drug abuse patient.[facility] HospitalIn the event this information is protected by the Federal Confidentiality of Alcohol and Drug Abuse Patient Records regulations: The Federal rules restrict any use of the information to criminally investigate or prosecute any alcohol or drug abuse patient.[facility] HospitalIn the event this information is protected by the Federal Confidentiality of Alcohol and Drug Abuse Patient Records regulations: The Federal rules restrict any use of the information to criminally investigate or prosecute any alcohol or drug abuse patient.[facility] HospitalIn the event this information is protected by the Federal Confidentiality of Alcohol and Drug Abuse Patient Records regulations: The Federal rules restrict any use of the information to criminally investigate or prosecute any alcohol or drug abuse patient.[facility] HospitalIn the event this information is protected by the Federal Confidentiality of Alcohol and Drug Abuse Patient Records regulations: The Federal rules restrict any use of the information to criminally investigate or prosecute any alcohol or drug abuse patient.[facility] HospitalIn the event this information is protected by the Federal Confidentiality of Alcohol and Drug Abuse Patient Records regulations: The Federal rules restrict any use of the information to criminally investigate or prosecute any alcohol or drug abuse patient.[facility] HospitalIn the event this information is protected by the Federal Confidentiality of Alcohol and Drug Abuse Patient Records regulations: The Federal rules restrict any use of the information to criminally investigate or prosecute any alcohol or drug abuse patient.[facility] HospitalIn the event this information is protected by the Federal Confidentiality of Alcohol and Drug Abuse Patient Records regulations: The Federal rules restrict any use of the information to criminally investigate or prosecute any alcohol or drug abuse patient.[facility] HospitalIn the event this information is protected by the Federal Confidentiality of Alcohol and Drug Abuse Patient Records regulations: The Federal rules restrict any use of the information to criminally investigate or prosecute any alcohol or drug abuse patient.[facility] HospitalIn the event this information is protected by the Federal Confidentiality of Alcohol and Drug Abuse Patient Records regulations: The Federal rules restrict any use of the information to criminally investigate or prosecute any alcohol or drug abuse patient.[facility] HospitalIn the event this information is protected by the Federal Confidentiality of Alcohol and Drug Abuse Patient Records regulations: The Federal rules restrict any use of the information to criminally investigate or prosecute any alcohol or drug abuse patient.[facility] HospitalIn the event this information is protected by the Federal Confidentiality of Alcohol and Drug Abuse Patient Records regulations: The Federal rules restrict any use of the information to criminally investigate or prosecute any alcohol or drug abuse patient.[facility] HospitalIn the event this information is protected by the Federal Confidentiality of Alcohol and Drug Abuse Patient Records regulations: The Federal rules restrict any use of the information to criminally investigate or prosecute any alcohol or drug abuse patient.[facility] HospitalIn the event this information is protected by the Federal Confidentiality of Alcohol and Drug Abuse Patient Records regulations: The Federal rules restrict any use of the information to criminally investigate or prosecute any alcohol or drug abuse patient.[facility] HospitalIn the event this information is protected by the Federal Confidentiality of Alcohol and Drug Abuse Patient Records regulations: The Federal rules restrict any use of the information to criminally investigate or prosecute any alcohol or drug abuse patient.[facility] HospitalIn the event this information is protected by the Federal Confidentiality of Alcohol and Drug Abuse Patient Records regulations: The Federal rules restrict any use of the information to criminally investigate or prosecute any alcohol or drug abuse patient.[facility] HospitalIn the event this information is protected by the Federal Confidentiality of Alcohol and Drug Abuse Patient Records regulations: The Federal rules restrict any use of the information to criminally investigate or prosecute any alcohol or drug abuse patient.[facility] HospitalIn the event this information is protected by the Federal Confidentiality of Alcohol and Drug Abuse Patient Records regulations: The Federal rules restrict any use of the information to criminally investigate or prosecute any alcohol or drug abuse patient.[facility] HospitalIn the event this information is protected by the Federal Confidentiality of Alcohol and Drug Abuse Patient Records regulations: The Federal rules restrict any use of the information to criminally investigate or prosecute any alcohol or drug abuse patient.[facility] HospitalIn the event this information is protected by the Federal Confidentiality of Alcohol and Drug Abuse Patient Records regulations: The Federal rules restrict any use of the information to criminally investigate or prosecute any alcohol or drug abuse patient.[facility] Reason for Visit (unrecogniz ed section and content) Reason Comments Lab Orders Reason Comments Discussion discontinuing oxygen Reason Comments Kidney Recipient Evaluation Specialty Diagnoses / Procedures Referred By Mariel metz Referred To Contact Transplant / Transplant Surgery Diagnoses virtual video Procedures PRE NEW PATIENT Oumou Hayes, LIQUIFIED NATURAL GAS SPECIALIST-ANGIOGRAPHER [address] [facility] [place] [address] Samra Smith MD [address] [place] [address] Referral ID Status Reason Start Date Expiration Date V isits Requested Visits Authorized [id number] Pending Review 03/06/2022 03/31/2023 1 1 Reason Comments Patient Question Reason Comments Hospital F/U Reason Comments Patient Update Reason Comments Results Reason Comments FYI-PT plan of care Reason Comments Medication Problem Reason Comments Follow Up Reason Comments Referral Request Reason Comments Admit to [facility] Reason Comments Cough Chest congestion, ST x3 days Reason Comments Lump Small, soft bump bel ow right knee. 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 Procedures CONSULT TO GENERAL SURGERY OFFICE/OUTPATIENT NEW HIGH MDM 60 MINUTES Alexus Mendez, LIQUIFIED NATURAL GAS SPECIALIST.PHONE REPRESENTATIVE [address] [place] [address] Referral ID Status Reason Start Date Expiration Date V isits Requested Visits Authorized [id number] Closed PCP Requested Referral 11/08/2023 11/07/2024 1 [...] Care Teams (unrecognized sec tion and content) Head Machinist Relationship Specialty Start Date End Date Aditya Davis PA-C [address] [place], [place] [address] PCP - General Family Practice 09/24/17 Lee Chacon [address] [place] [id number] Cardiology 05/16/17 Rigoberto Gould MD [address] [facility] [place], [place] [id number] Home Care Physician Family Practice 04/08/19 Head Machinist Relationship Specialty Start Date End Date Aditya Davis PA-C [address] [facility] [place], [place] [id number] PCP - General Family Practice 09/24/17 Lee Chacon [address] [place] [address] Cardiology 05/16/17 Rigoberto Gould MD [address] [place] [address] Home Care Physician Family Practice 04/08/19 Head Machinist Relationship Specialty Start Date End Date Aditya Davis PA-C [address] [facility] [place] [address] PCP - General Family Practice 09/24/17 Lee Chacon [address] [place] [address] Cardiology 05/16/17 Rigoberto Gould MD [address] [facility] [place] [address] Home Care Physician Family Practice 04/08/19 Head Machinist Relationship Specialty Start Date End Date Rigoberto Gould MD [address] [facility] Mail [address] [place] [address] PCP - General Family Medicine 03/06/22 Head Machinist Relationship Specialty Start Date End Date Aditya Davis PA-C [address] [facility] [place] [address] PCP - General Family Practice 09/24/17 Lee Chacon [address] [place] [address] Cardiology 05/16/17 Rigoberto Gould MD [address] [facility] [place] [address] Home Care Physician Family Practice 04/08/19 Head Machinist Relationship Specialty Start Date End Date Aditya Davis PA-C [address] [place] [address] PCP - General Family Medicine 09/24/17 Lee Chacon [address] [place] [address] Cardiology 05/16/17 Rigoberto Gould MD [address] [facility] [place] [address] Home Care Provider Family Medicine 04/08/19 Head Machinist Relationship Specialty Start Date End Date Aditya Davis PA-C [address] [facility] [place] [address] PCP - General Family Medicine 09/24/17 Lee Chacon [address] [place] [address] Cardiology 05/16/17 Rigoberto Gould MD [address] [facility] [place] [address] Home Care Provider Family Medicine 04/08/19 Head Machinist Relationship Specialty Start Date End Date Aditya Davis PA-C [address] [facility] [place] [address] PCP - General Family Medicine 09/24/17 Lee Chacon [address] [place] [address] Cardiology 05/16/17 Rigoberto Gould MD [address] [facility] [place] [address] Home Care Provider Family Medicine 04/08/19 Head Machinist Relationship Specialty Start Date End Date Aditya Davis PA-C [address] [facility] [place] [address] PCP - General Family Medicine 09/24/17 Lee Chacon [address] [place] [address] Cardiology 05/16/17 Rigoberto Gould MD [address] [facility] [place] [address] Home Care Provider Family Medicine 04/08/19 Head Machinist Relationship Specialty Start Date End Date Aditya Davis PA-C [address] [facility] [place] [address] PCP - General Family Medicine 09/24/17 Lee Chacon [address] [place] [address] Cardiology 05/16/17 Rigoberto Gould MD [address] [facility] [place] [address] Home Care Provider Family Medicine 04/08/19 Head Machinist Relationship Specialty Start Date End Date Aditya Davis PA-C [address] [facility] [place] [address] PCP - General Family Medicine 09/24/17 Lee Chacon [address] [place] [address] Cardiology 05/16/17 Rigoberto Gould MD [address] [facility] [place] [address] Home Care Provider Family Medicine 04/08/19 Head Machinist Relationship Specialty Start Date End Date Aditya Davis PA-C [address] [facility] [place] [address] PCP - General Family Medicine 09/24/17 Lee Chacon [address] [place] [address] Cardiology 05/16/17 Rigoberto Gould MD [address] [facility] [place] [address] Home Care Provider Family Medicine 04/08/19 Head Machinist Relationship Specialty Start Date End Date Rigoberto Gould MD [address] [facility] [place] [address] PCP - General Family Medicine 07/31/22 Lee Chacon [address] [facility] [address] [place] [address] Cardiology 05/16/17 Rigoberto Gould MD [address] [facility] [place] [address] Home Care Provider Family Medicine 04/08/19 Head Machinist Relationship Specialty Start Date End Date Aditya Davis PA-C [address] [facility] [place] [address] PCP - General Family Medicine 09/24/17 07/30/22 Rigoberto Gould MD [address] [facility] [place] [address] PCP - General Family Medicine 07/31/22 Lee Chacon [address] [place] [address] Cardiology 05/16/17 Rigoberto Gould MD [address] [facility] [place] [address] Home Care Provider Family Medicine 04/08/19 Head Machinist Relationship Specialty Start Date End Date Aditya Davis PA-C [address] [facility] [place] [address] PCP - General Family Medicine 09/24/17 07/30/22 Rigoberto Gould MD [address] [facility] [place] [address] PCP - General Family Medicine 07/31/22 Lee Chacon [address] [place] [address] Cardiology 05/16/17 Rigoberto Gould MD [address] [facility] [place] [address] Home Care Provider Family Medicine 04/08/19 Head Machinist Relationship Specialty Start Date End Date Rigoberto Gould MD [address] [facility] [place] [address] PCP - General Family Medicine 07/31/22 Lee Chacon [address] [place] [address] Cardiology 05/16/17 Rigoberto Gould MD [address] [facility] [place] [address] Home Care Provider Family Medicine 04/08/19 Head Machinist Relationship Specialty Start Date End Date Rigoberto Gould MD [address] [facility] [place] [address] PCP - General Family Medicine 07/31/22 Lee Chacon [address] [place] [address] Cardiology 05/16/17 Rigoberto Gould MD [address] [facility] [place] [address] Home Care Provider Family Medicine 04/08/19 Head Machinist Relationship Specialty Start Date End Date Rigoberto Gould MD [address] [facility] [place] [address] PCP - General Family Medicine 07/31/22 Lee Chacon [address] [place] [address] Cardiology 05/16/17 Rigoberto Gould MD [address] [place] [address] Home Care Provider Family Medicine 04/08/19 Head Machinist Relationship Specialty Start Date End Date Rigoberto Gould MD [address] [place] [address] PCP - General Family Medicine 07/31/22 Lee Chacon MD [address] [place] [address] Cardiology 05/16/17 Rigoberto Gould MD [address] [place] [address] Home Care Provider Family Medicine 04/08/19 Head Machinist Relationship Specialty Start Date End Date Rigoberto Gould MD [address] [place] [address] PCP - General Family Medicine 07/31/22 Lee Chacon MD [address] [address] Cardiology 05/16/17 Rigoberto Gould MD [address] [place] [address] Home Care Provider Family Medicine 04/08/19 Head Machinist Relationship Specialty Start Date End Date Rigoberto Gould MD [address] [place] [address] PCP - General Family Medicine 07/31/22 Lee Chacon MD [address] [place] [address] Cardiology 05/16/17 Rigoberto Gould MD [address] [place] [address] Home Care Provider Family Medicine 04/08/19 Head Machinist Relationship Specialty Start Date End Date Rigoberto Gould MD [address] [place] [address] PCP - General Family Medicine 07/31/22 Lee Chacon MD [address] [address] Cardiology 05/16/17 Rigoberto Gould MD [address] [place] [address] Home Care Provider Family Medicine 04/08/19 Head Machinist Relationship Specialty Start Date End Date Rigoberto Gould MD [address] [place] [address] PCP - General Family Medicine 07/31/22 Lee Chacon MD [address] [address] Cardiology 05/16/17 Rigoberto Gould MD [address] [place] [address] Home Care Provider Family Medicine 04/08/19 Head Machinist Relationship Specialty Start Date End Date Rigoberto Gould MD [address] [facility] [place] [address] PCP - General Family Medicine 07/31/22 Lee Chacon MD [address] [place] [address] Cardiology 05/16/17 Rigoberto Gould MD [address] [facility] [place] [address] Home Care Provider Family Medicine 04/08/19 Head Machinist Relationship Specialty Start Date End Date Rigoberto Gould MD [address] [facility] [place] [address] PCP - General Family Medicine 07/31/22 Lee Chacon MD [address] [address] [place] [address] Cardiology 05/16/17 Rigoberto Gould MD [address] [facility] [place] [address] Home Care Provider Family Medicine 04/08/19 Head Machinist Relationship Specialty Start Date End Date Rigoberto Gould MD [address] [facility] [place] [address] PCP - General Family Medicine 07/31/22 Lee Chacon MD [address] [place] [address] Cardiology 05/16/17 Rigoberto Gould MD [address] [facility] [place] [address] Home Care Provider Family Medicine 04/08/19 Head Machinist Relationship Specialty Start Date End Date Rigoberto Gould MD [address] [facility] [place] [address] PCP - General Family Medicine 07/31/22 Lee Chacon MD [address] [place] [address] Cardiology 05/16/17 Rigoberto Gould MD [address] [facility] [place] [address] Home Care Provider Family Medicine 04/08/19 Head Machinist Relationship Specialty Start Date End Date Rigoberto Gould MD [address] [facility] [place] [address] PCP - General Family Medicine 07/31/22 Lee Chacon MD [address] [place] [address] Cardiology 05/16/17 Rigoberto Gould MD [address] [facility] [place] [address] Home Care Provider Family Medicine 04/08/19 Head Machinist Relationship Specialty Start Date End Date Rigoberto Gould MD [address] [facility] [place] [address] PCP - General Family Medicine 07/31/22 Lee Chacon MD [address] [place] [address] Cardiology 05/16/17 Rigoberto Gould MD [address] [facility] [place] [address] Home Care Provider Family Medicine 04/08/19 Head Machinist Relationship Specialty Start Date End Date Rigoberto Golud MD [address] [facility] [place] [address] PCP - General Family Medicine 07/31/22 Lee Chacon MD [address] [place] [address] Cardiology 05/16/17 Rigoberto Gould MD [address] [facility] [place] [address] Home Care Provider Family Medicine 04/08/19 Head Machinist Relationship Specialty Start Date End Date Rigoberto Gould MD [address] [facility] [place] [address] PCP - General Family Medicine 07/31/22 Lee Chacon MD [address] [place] [address] Cardiology 05/16/17 Rigoberto Gould MD [address] [facility] [place] [address] Home Care Provider Family Medicine 04/08/19 Head Machinist Relationship Specialty Start Date End Date Rigoberto Gould MD [address] [facility] [place] [address] PCP - General Family Medicine 07/31/22 Lee Chacon MD [address] [place] [address] Cardiology 05/16/17 Rigoberto Gould MD [address] [place] [address] Home Care Provider Family Medicine 04/08/19 Head Machinist Relationship Specialty Start Date End Date Rigoberto Gould MD [address] [place] [address] PCP - General Family Medicine 07/31/22 Lee Chacon MD [address] [place] [address] Cardiology 05/16/17 Rigoberto Gould MD [address] [place] [address] Home Care Provider Family Medicine 04/08/19 Head Machinist Relationship Specialty Start Date End Date Rigoberto Gould MD [address] [place] [address] PCP - General Family Medicine 07/31/22 Lee Chacon MD [address] [place] [address] Cardiology 05/16/17 Rigoberto Gould MD [address] [place] [address] Home Care Provider Family Medicine 04/08/19 Head Machinist Relationship Specialty Start Date End Date Rigoberto Gould MD [address] [place] [address] PCP - General Family Medicine 07/31/22 Lee Chacon MD [address] [place] [address] Cardiology 05/16/17 Rigoberto Gould MD [address] [place] [address] Home Care Provider Family Medicine 04/08/19 Head Machinist Relationship Specialty Start Date End Date Rigoberto Gould MD [address] [facility] [place] [address] PCP - General Family Medicine 07/31/22 Lee Chacon MD [address] [place] [address] Cardiology 05/16/17 Rigoberto Gould MD [address] [facility] [place] [address] Home Care Provider Family Medicine 04/08/19 Head Machinist Relationship Specialty Start Date End Date Rigoberto Gould MD [address] [facility] [place] [address] PCP - General Family Medicine 07/31/22 Lee Chacon MD [address] [place] [address] Cardiology 05/16/17 Rigoberto Gould MD [address] [facility] [place] [address] Home Care Provider Family Medicine 04/08/19 Head Machinist Relationship Specialty Start Date End Date Rigoberto Gould MD [address] [facility] [place] [address] PCP - General Family Medicine 07/31/22 Lee Chacon MD [address] [place] [address] Cardiology 05/16/17 Rigoberto Gould MD [address] [place] [address] Home Care Provider Family Medicine 04/08/19 Head Machinist Relationship Specialty Start Date End Date Rigoberto Gould MD [address] [place] [address] PCP - General Family Medicine 07/31/22 Lee Chacon MD [address] [place] [address] Cardiology 05/16/17 Rigoberto Gould MD [address] [place] [address] Home Care Provider Family Medicine 04/08/19 Head Machinist Relationship Specialty Start Date End Date Rigoberto Gould MD [address] [place] [address] PCP - General Family Medicine 07/31/22 Lee Chacon MD [address] [place] [address] Cardiology 05/16/17 Rigoberto Gould MD [address] [place] [address] Home Care Provider Family Medicine 04/08/19 Cristina Zamudio APRN.ANGIOGRAPHER [address] [place] [address] Stunt Double Family Medicine 08/04/24 Alexus Mendez APRN.ANGIOGRAPHER [address] [place] [address] Stunt Double Family Medicine 08/04/24 Head Machinist Relationship Specialty Start Date End Date Rigoberto Gould MD [address] [place] [address] PCP - General Family Medicine 07/31/22 Lee Chacon MD [address] [place] [address] Cardiology 05/16/17 Rigoberto Gould MD [address] [place] [address] Home Care Provider Family Medicine 04/08/19 Cristina Zamudio APRN.ANGIOGRAPHER [address] [place] [address] Stunt Double Family Medicine 08/04/24 Alexus Mendez LIQUIFIED NATURAL GAS SPECIALIST.ANGIOGRAPHER [address] [place] [address] Stunt Double Family Medicine 08/04/24 Head Machinist Relationship Specialty Start Date End Date Rigoberto Gould MD [address] [place] [address] PCP - General Family Medicine 07/31/22 Lee Chacon MD [address] [place] [address] Cardiology 05/16/17 Rigoberto Gould MD [address] [facility] [place] [address] Home Care Provider Family Medicine 04/08/19 Cristina Zamudio APRN.ANGIOGRAPHER [address] [facility] [place] [address] Stunt Double Family Medicine 08/04/24 Alexus Mendez APRN.ANGIOGRAPHER [address] [facility] [place] [address] Stunt Double Family Medicine 08/04/24 Head Machinist Relationship Specialty Start Date End Date Rigoberto Gould MD [address] [facility] [place] [address] PCP - General Family Medicine 07/31/22 Lee Chacon MD [address] [place] [address] Cardiology 05/16/17 Rigoberto Gould MD [address] [facility] [place] [address] Home Care Provider Family Medicine 04/08/19 Cristina Zamudio APRN.ANGIOGRAPHER [address] [facility] [place] [address] Stunt Double Family Medicine 08/04/24 Alexus Mendez LIQUIFIED NATURAL GAS SPECIALIST.ANGIOGRAPHER [address] [facility] [place] [address] Stunt Double Family Medicine 08/04/24 Head Machinist Relationship Specialty Start Date End Date Rigoberto Gould MD [address] [place] [address] PCP - General Family Medicine 07/31/22 Lee Chacon MD [address] [facility] [address] [place] [address] Cardiology 05/16/17 Rigoberto Gould MD [address] [facility] [place] [address] Home Care Provider Family Medicine 04/08/19 Cristina Zamudio APRN.ANGIOGRAPHER [address] [facility] [place] [address] Stunt Double Family Medicine 08/04/24 Alexus Mendez LIQUIFIED NATURAL GAS SPECIALIST.ANGIOGRAPHER [address] [facility] [place] [address] Stunt Double Family Medicine 08/04/24 Head Machinist Relationship Specialty Start Date End Date Rigoberto Gould MD [address] [facility] [place] [address] PCP - General Family Medicine 07/31/22 Lee Chacon MD [address] [facility] [address] [place] [address] Cardiology 05/16/17 Rigoberto Gould MD [address] [facility] [place] [address] Home Care Provider Family Medicine 04/08/19 Cristina Zamudio LIQUIFIED NATURAL GAS SPECIALIST.ANGIOGRAPHER [address] [facility] [place] [address] Stunt Double Family [facility] 08/04/24 Alexus Mendez LIQUIFIED NATURAL GAS SPECIALIST.ANGIOGRAPHER [address] [place] [address] Stunt Double [facility] 08/04/24 Head Machinist Relationship Specialty Start Date End Date Rigoberto Gould MD [address] [facility] [place] [address] PCP - General Family Medicine 07/31/22 Lee Chacon MD [address] [facility] [address] [place] [address] Cardiology 05/16/17 Rigoberto Gould MD [address] [place] [address] Home Care Provider Family Medicine 04/08/19 Cristina Zamudio, LIQUIFIED NATURAL GAS SPECIALIST.ANGIOGRAPHER [address] [place] [address] [facility] Alexus Mendez LIQUIFIED NATURAL GAS SPECIALIST.ANGIOGRAPHER [address] [place] [address] Stunt Double Family [facility] 08/04/24 Head Machinist Relationship Specialty Start Date End Date Rigoberto Gould MD [address] [place] [address] PCP - General Family Medicine 07/31/22 Lee Chacon MD [address] [place] [address] Cardiology 05/16/17 Rigoberto Gould MD [address] [facility] [place] [address] Home Care Provider Family Medicine 04/08/19 Cristina Zamudio APRN.ANGIOGRAPHER [address] [place] [address] Stunt Double Family Medicine 08/04/24 Alexus Mendez APRN.ANGIOGRAPHER [address] [place] [address] Stunt Double Family [facility] 08/04/24 Head Machinist Relationship Specialty Start Date End Date Rigoberto Gould MD [address] [place] [address] PCP - General Family Medicine 07/31/22 Lee Chacon MD [address] [place] [address] Cardiology 05/16/17 Rigoberto Gould MD [address] [place] [address] Home Care Provider Family Medicine 04/08/19 Cristina Zamudio APRN.ANGIOGRAPHER [address] [place] [address] Stunt Double Family Medicine 08/04/24 Alexus Mendez APRN.ANGIOGRAPHER [address] [place] [address] Stunt Double Family Medicine 08/04/24 Head Machinist Relationship Specialty Start Date End Date Rigoberto Gould MD [address] [place] [address] PCP - General Family Medicine 07/31/22 Lee Chacon MD [address] [place] [address] Cardiology 05/16/17 Rigoberto Gould MD [address] [place] [address] Home Care Provider Family Medicine 04/08/19 Cristina Zamudio APRN.ANGIOGRAPHER [address] [place] [address] Stunt Double Family Medicine 08/04/24 Alexus Mendez APRN.ANGIOGRAPHER [address] [place] [address] Stunt Double Family Medicine 08/04/24 Head Machinist Relationship Specialty Start Date End Date Rigoberto Gould MD [address] [place] [address] PCP - General Family Medicine 07/31/22 Lee Chacon MD [address] [place] [address] Cardiology 05/16/17 Rigoberto Gould MD [address] [place] [address] Home Care Provider Family Medicine 04/08/19 Cristina Zamudio APRN.ANGIOGRAPHER [address] [place] [address] Stunt Double Family Medicine 08/04/24 Alexus Mendez APRN.ANGIOGRAPHER [address] [place] [address] Stunt Double Family Medicine 08/04/24 Head Machinist Relationship Specialty Start Date End Date Rigoberto Gould MD [address] [place] [address] PCP - General Family Medicine 07/31/22 Lee Chacon MD [address] [place] [address] Cardiology 05/16/17 Rigoberto Gould MD [address] [place] [address] Home Care Provider Family Medicine 04/08/19 Cristina Zamudio APRN.ANGIOGRAPHER [address] [place] [address] Stunt Double [facility] 08/04/24 Alexus Mendez APRN.ANGIOGRAPHER [address] [place] [address] Stunt Double Family [facility] 08/04/24 Head Machinist Relationship Specialty Start Date End Date Rigoberto Gould MD [address] [place] [address] PCP - General Family Medicine 07/31/22 Lee Chacon MD [address] [place] [address] Cardiology 05/16/17 Rigoberto Gould MD [address] [place] [address] Home Care Provider Family Medicine 04/08/19 Cristina Zamudio APRN.ANGIOGRAPHER [address] [place] [address] Stunt Double Family Medicine 08/04/24 Alexus Mendez APRN.ANGIOGRAPHER [address] [place] [address] Stunt Double Family Medicine 08/04/24 11/14/24 Head Machinist Relationship Specialty Start Date End Date Rigoberto Gould MD [address] [place] [address] PCP - General Family Medicine 07/31/22 Lee Chacon MD [address] [place] [address] Cardiology 05/16/17 Rigoberto Gould MD [address] [place] [address] Home Care Provider Family Medicine 04/08/19 Cristina Zamudio APRN.ANGIOGRAPHER [address] [place] [address] Stunt Double Family Medicine 08/04/24 Alexus Mendez LIQUIFIED NATURAL GAS SPECIALIST.ANGIOGRAPHER [address] [place] [address] Stunt Double Family Medicine 08/04/24 Head Machinist Relationship Specialty Start Date End Date Rigoberto Gould MD [address] [place], [place] [address] PCP - General Family Medicine 07/31/22 Lee Chacon MD [address] [place] [address] Cardiology 05/16/17 Rigoberto Gould MD [address] [place] [address] Home Care Provider Family Medicine 04/08/19 Cristina Zamudio APRN.ANGIOGRAPHER [address] [place] [address] Stunt Double Family [facility] 08/04/24 Alexus Mendez APRN.ANGIOGRAPHER [address] [place] [address] Stunt Double Family Medicine 08/04/24 Head Machinist Relationship Specialty Start Date End Date Rigoberto Gould MD [address] [place] [address] PCP - General Family Medicine 07/31/22 Lee Chacon MD [address] [place] [address] Cardiology 05/16/17 Rigoberto Gould MD [address] [place] [address] Home Care Provider Family Medicine 04/08/19 Cristina Zamudio APRN.ANGIOGRAPHER [address] [place] [address] Stunt Double Family Medicine 08/04/24 Alexus Mendez LIQUIFIED NATURAL GAS SPECIALIST.ANGIOGRAPHER [address] [place] [address] Stunt Double Family [facility] 08/04/24 Head Machinist Relationship Specialty Start Date End Date Rigoberto Gould MD [address] [place], [place] [address]78[address] PCP - General Family Medicine 07/31/22 Lee Chacon MD [address] [address] Cardiology 05/16/17 Rigoberto Gould MD [address] [place], [place] [address]99[address] Home Care Provider Family Medicine 04/08/19 Cristina Zamudio APRN.ANGIOGRAPHER [address] [place], [place] [address] Stunt Double Family [facility] 08/04/24 Alexus Mendez APRN.ANGIOGRAPHER [address] [place], [place] [address] Stunt Double [facility] 08/04/24 Team Status: Active Member Role Status [...] Attending Provider Active Start: December 11, 2024 Head Machinist Relationship Specialty Start Date End Date Rigoberto Gould MD [address] [facility] [place], [place] [address] PCP - General Family Medicine 07/31/22 Lee Chacon MD [address], [place] [address] Cardiology 05/16/17 Rigoberto Gould MD [address] [facility] [place] [address] Home Care Provider Family Medicine 04/08/19 Cristina Zamudio, [place].ANGIOGRAPHER [address] [facility], [place] [address] Stunt Double Family Medicine 08/04/24 Alexus Mendez LIQUIFIED NATURAL GAS SPECIALIST.ANGIOGRAPHER [address] [facility] [place], [place] [address] Stunt Double Family Medicine 08/04/24 Team Status: Inactive Member [...] Provider Active Start: December 12, 2024 Dr. Jensen Claire MD Attending Provider [...] Provider Active Sta rt: December 13, 2024 Head Machinist Relationship Specialty Start Date End Date Rigoberto Gould MD [address] [place], [place] [address] PCP - General Family Medicine 07/31/22 Lee Chacon MD [address] [id number] Cardiology 05/16/17 Rigoberto Gould MD [address] [place], [place] [address]77[address] Home Care Provider Family Medicine 04/08/19 Cristina Zamudio APRN.ANGIOGRAPHER [address] [place], [place] [address] Stunt [facility] Family Medicine 08/04/24 Alexus Mendez LIQUIFIED NATURAL GAS SPECIALIST.ANGIOGRAPHER [address] [place], [place] [id number] [facility] 08/04/24 Team Status: Inactive Member Role Status [...] BE BASED ON THE PRIMARY CLINICAL RECORDS. [facility] [facility]. provides no warranty or guarantee of the accuracy or completeness of information in this document.
[2025-01-28] MEDS: Midodrine HCl 5 MG Tablet PO (23:40)
[2025-01-28] MEDS: HYDROcodone Bitartrate/Apap 5/325 Tablet PO (23:40)
[2025-01-28 23:44] VITALS: BP 106/88; PULSE 89; RESP 17; O2SAT 96
[2025-01-28 23:51] LABS: Differential Indicated SCAN CRITERIA MET
[2025-01-28 23:52] LABS: Magnesium 2.4 mg/dL (1.5-2.2); Phosphorus 5.2 mg/dL (2.7-4.5)
[2025-01-29] VITALS (17 sets, daily range): BP systolic 37–83; BP diastolic 11–69; PULSE 61–110; RESP 0–25; TEMP 36.2–36.3; O2SAT 61–100; BMI 23.5
[2025-01-29 00:21] LABS: Anisocytosis 3+; Differential Comment SCANNED; Macrocytosis 2+; Platelet Estimate MOD DEC (ADEQ); Polychromasia RARE
[2025-01-29 00:22] LABS: Ovalocyte RARE
[2025-01-29 00:23] LABS: Burr Cells 1+
[2025-01-29] MEDS: 0.9% Normal Saline (1000mL) 1,000 ML 75 ML IV (00:30)
[2025-01-29] MEDS: Ondansetron 4 MG/2 ML Vial IV (00:39)
[2025-01-29] MEDS: 0.9% Saline Lock 10 ML Syringe IV ×4 (00:39→03:15)
[2025-01-29] MEDS: Latanoprost 0.005% 1 Bottle 1 DRP EACH EYE (00:43)
[2025-01-29] MEDS: Pantoprazole Sodium 40 MG in 0.9% Normal Saline (100mL MB+) 100 ML 330 MG IV (00:43)
[2025-01-29 01:02] LABS: Procalcitonin 1.83 ng/mL (<=0.10)
[2025-01-29 01:08] LABS: Bedside Glucose 126 mg/dL (74-106)
--- NOTE | 2025-01-29 01:40 | RAD_ITS ---
PROCEDURE: CHEST 1 VIEW (PORTABLE) 01/29/2025 REASON FOR EXAM: DYSPNEA TECHNIQUE: Frontal view of the chest. COMPARISON: Chest radiograph dated 12/11/2024 FINDINGS: Hardware: None Heart: Unchanged cardiomegaly. Sequela of CABG. Aortic atherosclerosis. Lungs: Slightly increased interstitial markings diffusely. There is bilateral perihilar fullness. Bones: Degenerative changes are identified within the thoracic spine. Median sternotomy wires. RAD/Chest 1 View (Portable) IMPRESSION: Similar appearance of the chest, with cardiomegaly, increased interstitial mae ings, and perihilar fullness. Findings may again represent cardiogenic pulmonary edema, though infection or atelectasis could al so contribute. Reading Location: [facility]
[2025-01-29] MEDS: Vancomycin HCl 2,000 MG in 0.9% Normal Saline (500mL Bag) 500 ML 250 MG IV (02:13)
--- NOTE | 2025-01-29 02:23 | PCM.RX.CS ---
Consult Antibiotic Management Pharmacy has been consulted to manage selected antibiotic: Vancomycin Type of Intervention Type of Consult: New start Dosing Weight Weight used for dosin.3 kg Estimated Creatinine Clearance Estimated Creatinine Clearance: 16.6 Goal Trough Goal Trough: 15-20 mcg/mL Pharmacy Plan for Drug Dosing Pharmacy Plan for Drug Dosing: An initial vancomycin dose of 2000mg was given 01/29/25 @0213. Further dosing will be scheduled to be infused after dialysis sessions. Pharmacy will coordinate with nursing as to HD schedule. Pharmacy Service will continue to monitor and adjust dosing as required.
[2025-01-29] MEDS: Piperacil/Tazobactam 3.375 GM in 0.9% Normal Saline (50mL MB+) 50 ML IV (02:51)
[2025-01-29] MEDS: Lorazepam 2 MG/ML WCH Syringe 0.5 MG IV (03:00)
--- NOTE | 2025-01-29 03:11 | PCM.HOSP.N ---
Hospitalist Note Patient with continued intermittent hypotension, only transiently improving with midodrine in the setting of elevated procalcitonin unclear if underlying infectious process. As noted prior started on IV zosyn and vanc to be cautious, pending Bld Cx, CXR obtained w/ cardiomegaly, increased interstitial markings, and perihilar fullness thus possible pulmonary etiology. CT A/P earlier in the day prior was not marked appearing. Does not make urine. Patient having episodes of staring off but at the same time now have bradycardia also. Will transition to the ICU, consult Cardiology and ICU team, administer atropine if needed, administer lower dose of IVF sepsis protocol given possibly overload potential, obtain LA, attempt sputum Cx, defer urine antigens as reporting no urine made, obtain full resp panel. If stablizes today may need to further image spine with MRI. Will await ICU recommendations. Sepsis Attestation Sepsis Attestation: Agree w/Sepsis Date exam was performed: 01/29/25 Time exam was performed: 03:15 Possible Source of Sepsis: Other (Uncertain, possible pulmonary versus spine, uncertain, but concern for infectious process.) Sepsis Organ Dysfunction Criteria Present: SBP < 90 mmHg or MAP < 65 mmHg and New/Unexplained change in mental status Fluid Resuscitation Fluid resuscitation indicated?: Yes Fluid Resuscitation ordered: Lesser volume fluid bolus ordered Amount of fluid ordered: 2,000 Reason for lesser fluid bolus:: Concern for fluid overload and Heart failure
[2025-01-29] MEDS: Atropine Sulfate 1 MG/10 ML Syringe 0.5 MG IV (03:15)
--- OUTSIDE RECORDS SUMMARY | 2025-01-29 03:28 | XMS RPT_ITS | CCD ---
Author Organization [facility] Care Team Providers Care Clinical Outcomes Manager Name Role Phone Roof CLEANING PORTER, Nick Hernandez Unavailable Pilar WEINBERG, Jocelin Gonsalez Unavailable Unavailable Lee Chacon MD Unavailable Joel WEINBERG, Florencia Delcid Unavailable [phone] ARNAUD MILLER Unavailable Unavailable PHYSICIAN, NONE Unavailable [...] Unavailable Unavailable Rigoberto Gould Primary Care Provider [phone] Rigoberto Gould MD Primary Care Provider Lee [...] Rigoberto Gould MD Primary Care Provider Haagen ENTRY LEVEL STAFF ACCOUNTANT.THEATRICAL PERFORMER, Cristina Unavailable Suppan ENTRY LEVEL STAFF ACCOUNTANT.THEATRICAL PERFORMER, Alexus A Unavailable Suppan ENTRY LEVEL STAFF ACCOUNTANT.THEATRICAL PERFORMER, Alexus A Unavailable [phone] Suppan ENTRY LEVEL STAFF ACCOUNTANT.THEATRICAL PERFORMER, Alexus A Unavailable Suppan ENTRY LEVEL STAFF ACCOUNTANT.THEATRICAL PERFORMER, Alexus A Unavailable [phone] Dr. Rigoberto Gould MD Primary Care Provider Ivan RASMUSSEN, Dr. Murguia Referring Provider Dr. Jensen Claire MD Attending [...] Provider Dr. Ra Aaron DO Attending Provider [phone] Ra Aaron DO Emergency Provider [phone] RIGOBERTO GOULD Primary Care Unavailable NUPUR DE LA ROSA Referring Unavailable RIGOBERTO GOULD Primary Care Unavailable NUPUR DE LA ROSA Referring Unavailable RIGOBERTO GOULD Primary Care Unavailable NUPUR DE LA ROSA Referring Unavailable RIGOBERTO GOULD Primary Care Unavailable PROVIDER, UNKNOWN Referring Unavailable [...] J Primary Care Unavailable SCOTT SAUCEDO Consulting Unavailabl e NUPUR DE LA ROSA Attending Unavailable IVAN, RIGOBERTO J Primary Care Unavailable ALEXUS MENDEZ Attending Unavailable IVAN, RIGOBERTO J Primary Care Unavailable NUPUR DE LA ROSA Attending Unavailable IVAN, RIGOBERTO J Primary Care Unavailable IVAN, RIGOBERTO J Primary Care Unavailable IVAN, RIGOBERTO J Attending Unavailable JENSEN PUCKETT JR Attending Unavaila ble IVAN, RIGOBERTO J Primary Care Unavailable IVAN, RIGOBERTO J Primary Care Unavailable [facility], RIGOBERTO J Primary Care Unavailable NUPUR DE LA ROSA Attending Unavailable NUPUR DE LA ROSA Referring Unavailable NUPUR DE LA ROSA Attending Unavailable IVAN, RIGOBERTO J Primary Care Unavailable NUPUR DE LA ROSA Attending Unavailable IVAN, RIGOBERTO J Primary Care Unavailable ALEXUS MENDEZ Attending Unavailable [facility], RIGOBERTO J Primary Care Unavailable [facility], RIGOBERTO J Primary Care Unavailable NUPUR DE LA ROSA Attending Unavailable NUPUR DE LA ROSA Attending Unavailable IVAN, RIGOBERTO J Primary Care Unavailable IVAN, RIGOBERTO J Primary Care Unavailable NUPUR DE LA ROSA Attending Unavailable IVAN, [facility] Primary Care Unavailable ALEXUS MENDEZ Attending Unavailable SELF Referring Unavailable ALEXUS MENDEZ Attending Unavailable [facility], RIGOBERTO J Primary Care Unavailable MACO RIVERA Attending Unavailable IVAN, RIGOBERTO J Primary Care Unavailable ALEXUS MENDEZ Attending Unavailable [facility], [facility] Primary Care Unavailable NUPUR DE LA ROSA Attending Unavailable [facility], [facility] Primary Care Unavailable Felder, Rafa Attending Unavailable [place], Rigoberto Primary Care Unavailable José Miguel Nunez Attending Unavailable [place], Rigoberto Primary Care Unavailable Ivan, Rigoberto Primary Care Unavailable Jensen Claire Attending Unavailable [place], Rigoberto Referring Unavailable [place], Rigoberto Primary Care Unavailable Jensen Claire Attending Unavailable [place], Rigoberto Referring Unavailable Florencia Maier Attending Unavail able [place], Rigoberto Referring Unavailable [place], Rigoberto Primary Care Unavailable Mary Jo Granados Admitting Unavailable Jensen Claire Attending Unavailable Nata Jackson Consulting Unavailable [place], Rigoberto Primary Care Unavailable Mary Jo Granados Consulting Unavailable Sukumar Restrepo Attending Unavailable Sukumar Restrepo Consulting Unavailable Mary Jo Granados Attending Unavailable [place], Rigoberto Primary Care Unavailable Jensen Claire Attending Unavailable [facility] Unavailable Nicho Nelson Attending Unavailable [facility] Care Unavailable [facility] Unavailable Ra Aaron Attending Unavailable [facility] Unavailable Basim Luz Attending Unavailabl Mary Jo Lau Admitting Unavailable Sukumar Restrepo Attending Unavailable Nata Jackson Consulting Unavailable [facility] Care Unavailable White, Mary Jo L Consulting Unavailable White, Mary Jo L Admitting Unavailable White Mary Jo L Attending Unavailable [facility] Unavailable AdeIbrahima joyce Consulting Unavailable Millie Serene Consulting Unavailable Luciana Haile Consulting Unavailable Yan Barbour Consulting Unavailable Ezequiel Burrows Consulting Unavailable Michel Ovalle Consulting Unavailable LA SANCHEZ Consulting Unavailable Shawna Boles Consulting Unavailable Marilou Whittaker Consulting Unavailable Flaco Reynoso Consulting Unavailable Mitra June Consulting Unavailable Basim Luz Attending Unavailalphonso e [facility] Unavailable [facility] Unavailable Ra Aaron Attending Unavailable Allergies Allergy Classification Reported Allergen(s) Allergy Type Date of Onset Reaction(s) Facility pregabalin (3 sources) pregabalin Drug Allergy 7 Swelling [facility] (4 sources) pregabalin Drug Allergy 7 Swelling [facility] Work Phone: (20 sources) pregabalin; Translations: [PREGABALIN] Drug Allergy 7 Swelling, Rash [facility] Work Phone: (1 source) pregabalin Drug Allergy 5 [facility] Repository Medications Current Medications Medication Drug [...] open type I or II, initial encounter ([facility]) Take 1 tablet by mouth every 4 [...] Indications: Chronic kidney disease, stage IV (severe) ([facility]) Take 1 tablet by mouth every 6 [...] oral tablet (1 source) Benzodiazepine Start: 11-06-19 ALPRAZolam (NIRAVAM) dissolvable tablet 0.25 mg apixaban [...] mg by mouth daily at bedtime. B Qglfncf-J-Fqddg Acid (Nephro-Savanah) 0.8 MG tablet (1 source) B Xyonbaa-X-Zijq c Acid (Nephro-Savanah) 0.8 MG tablet Take [...] 07-07-2022 handicap placcard Active 0 .Route .MEDSUPPLY 1 July 07, 2022 1:00am Dx: Debility Exp: [...] 0 .005 % SOLN as directed LATANOPROST [id number] Florencia Maldonado RN Start: 03-23-2017 take 1 [...] 11 03/27/2024 Active take 1 capsule by [facility] once daily loratadine (CLARITIN) 10 MG capsule Take 10 mg by mouth daily One capsule orally once a day 0 Active Comment on above: Take 1 tablet by gonzales th once daily. melatonin 5 mg oral tablet (20 sources) Start: 08-02-2020 take 2 tablets by mouth at bedtime as needed for sleep Melatonin 5 mg tablet Active 10 mg PO BEDTIME as needed for Sleep August 02, 2020 1:00am Start: 08-02-2020 take 1 tablet by gonzales th every twenty-four hours as needed melatonin 5 mg tablet Take 5 mg by mouth at bedtime as needed for for insomnia. 0 Active take 5 mg by mouth at bedtime me latonin 3 MG tablet Take 5 mg by mouth at bedtime. 0 Active take 1 tablet by gonzales th once daily at bedtime as needed melatonin [...] 5 mg tablet Discontinued 0 PO .COMPLEX 45 May 02, 2018 1:08pm May 29, 2018 [...] once daily. Take 1 tablet by gonzales th once daily. midodrine hydrochloride 5 mg oral [...] solution (1 source) Quinolone Antimicrobial Start: 01-04-20 ofloxacin (OCUFLOX) 0.3 % solution ondansetron 4 mg oral tablet (2 sources) Serotonin-3 Receptor Antagonist Start: 09-04-19 End: 09-14-19 take 1 tablet by mouth every eight [...] Indications: Chronic kidney disease, stage IV (severe) ([facility]) Take 1 tablet by mouth every 6 [...] Start: 05-25-2017 take 2 tablets by mo ut twice daily COREG 3.125 MG TABS two tablet by mouth twice daily CARVEDILOL [id number] Florencia Maldonado RN Start: 05-25-2017 take 1 tablet by gonzales th twice daily CARVEDILOL 6.25 MG TABS One tablet by mouth twice daily CARVEDILOL [id number] Nick Larkin NP Comment on above: Take [...] Discontinued 4 mg PO TWICE A DAY December 17, 2020 8:16am March 30, 2021 [...] mg tablet Discontinued 4 mg PO daily February 13, 2018 5:26pm February 15, 2018 [...] 1 tablet by gonzales th twice daily with meals. fidaxomicin 200 mg oral tablet (1 source) Macrolide Antibacterial Start: 07-01-2022 End: 07-02-2022 take 1 tablet by mouth twice daily fidaxomicin (DIFICID) 200 mg tablet Take 1 tablet by mouth twice daily for 10 days. 20 tablet 0 07/01/2022 07/02/2022 Discontinued (Cost of medication) Comment on above: Take 1 tablet by gonzales th twice daily for 10 days. finasteride 5 mg oral tablet (20 sources) 5-alpha Reductase Inhibitor Start: 05-06-2019 End: 03-23-2023 Comment on above: Take 5 mg by mouth o nce daily. flash glucose scanning reader (FREESTYLE SERGEI 14 DAY READER) misc (2 sources) Start: 04-17-2019 End: 12-02-2021 flash glucose scanning reader (FREESTYLE SERGEI 14 DAY READER) [facility] Indications: Uncontrolled type 2 diabetes mellitus without complication, with long-term current use of insulin 1 Each four times daily. 1 Each 0 04/17/2019 12/02/2021 Discontinued Start: 04-17-2019 flash glucose scanning reader (FREESTYLE SERGEI 14 DAY READER) [facility] Indications: Uncontrolled type 2 diabetes mellitus without [...] 1 Each four times daily. 2 Kit 04/17/2019 12/02/2021 Discontinued Start: 04-17-2019 flash glucose sensor (FREESTYLE SERGEI 14 DAY SENSOR) kit Indications: Uncontrolled type 2 diabetes mellitus without complication, with long-term current use of insulin 1 Each four times daily. 2 Kit 04/17/2019 Active Comment on above: 1 Each [...] TABS One tablet by mouth daily FUROSEMIDE [id number] Lee Chacon MD gabapentin 300 mg oral [...] 09-04-2017 End: 06-03-2018 Handicap Placard Discontinue d September 04, 2017 2:15pm June 03, 2018 3:36pm Lifetime Start: 09-04-2017 End: 09-04-2017 Handicap Placard Discontinue d September 04, 2017 2:03pm September 04, 2017 [...] 100 mg PO THREE TIMES A DAY December 08, 2020 4:32pm March 30, 2021 [...] UN IT/ML SOLN as directed INSULIN DETEMIR [id number] Florencia Maldonado RN Start: 03-12-2017 End: 06-03-2018 [...] IT/ML SOLN as directed INSULIN LISPRO (HUMAN) [id number] Florencia Maldonado RN Comment on above: Inject [...] TABS One tablet by mouth daily LISINOPRIL [id number] Florencia Maldonado RN Start: 05-18-2017 take 1 tablet by gonzales th twice daily LISINOPRIL 10 MG TABS One tablet by mouth twice daily LISINOPRIL [id number] Nick Larkin NP Start: 03-14-2017 End: 08-23-2017 take 2 tablets by mouth twice daily LISINOPRIL 5 MG TABS two tablet by mouth twice daily LISINOPRIL [id number] Florencia Maldonado RN Start: 03-14-2017 End: 08-23-2017 [...] and 1 tab at dinner METFORMIN HCL [id number] Florencia Maldonado RN Start: 06-19-2015 End: 08-23-2017 [...] mg or al tablet (11 sources) beta-Adrenergic Urfus Start: 03-14-2017 End: 08-23-2017 minoxidil 2.5 mg [...] Take 2 Each by mouth once daily. Mv,Ca,Plh-Hrjf-Ph-Ly copene 1 EACH tablet (2 sources) Start: 06-03-2018 End: 08-02-2018 take 1 tablet by mouth once daily Mv,Ca,Wav-Ingw-Yk-L ycopene 1 EACH tablet Discontinued 2 NMA PO DAILY June 03, 2018 12:00am August 02, 2018 3:03pm nitroglycerin 0.4 mg sublingual tablet (7 sources) Nitrate Vasodilator Start: 05-18-2017 NITROGLYCERIN 0.4 MG SUBL 1 tablet under the tongue every 5 minutes times 3 as needed for chest pain. NITROGLYCERIN [id number] Florencia Maldonado RN Start: 03-14-2017 End: 06-03-2018 [...] Take 1 tablet by gonzales once daily. pollen extracts (PROSTAT ORAL) (9 sources) take 30 mL by mouth twice daily pollen extracts (PROSTAT ORAL) Take 30 mL by mouth twice daily. Protein supplement 0 Active Comment on above: Take 30 mL by mouth twice daily. Protein supplement polyethylene glycol 400 4 mg/ml / propylene glycol 3 mg/ml ophthalmic solution (7 sources) Start: 06-04-2017 End: 01-15-2018 Start: 05-25-2017 SYSTANE SOLN e ye gtts as needed POLYETHYL GLYCOL-PROPYL GLYCOL SOLN [id number] Lee Chacon MD pravastatin sodium 80 mg [...] 0 Active take 3 tablets by mo uth once daily as needed sildenafil (REVATIO) 20 [...] 12-18-2018 Tamsulosin 0.4 mg capsule Discontinued PO 30 August 02, 2018 1:00am December 18, 2018 4:11pm Start: 05-18-2017 End: 05-25-2017 take 1 tablet by mouth once daily TAMSULOSIN HCL 0.4 MG CAPS One tablet by mouth daily TAMSULOSIN HCL [id number] Florencia Maldonado RN torsemide 20 mg oral [...] Indications: Instability of prosthetic knee, initial encounter (HCC) ([facility]) Take 1 tablet by mouth two times a day as needed for pain for up to 7 days. 14 tablet 10/03/2024 10/03/2024 Discontinued (Lack of Efficacy) Start: 06-04-2017 End: 01-15-2018 Start: 05-18-2017 take 1 tablet by gonzales once daily TRAMADOL HCL 50 MG TABS One tablet by mouth daily TRAMADOL HCL [id number] Florencia Maldonado RN End: 10-03-2024 take 1 tablet by mouth every six hours as needed traMADol (ULTRAM) 50 mg tablet Take 50 mg by mouth every 6 hours as needed for pain. 10/03/2024 Discontinued triamcinolone acetonide 40 m g/ml injectable suspension (3 sources) Corticosteroid Start: 03-20-2019 End: 04-14-2019 vancomycin 125 mg oral capsu he (16 sources) Glycopeptide Antibacterial Start: 10-12-2022 End: 03-23-2023 Start: 07-02-2022 take 1 capsule by [facility] four times daily, then take 1 [...] disease (20 sources) Atherosclerotic heart disease of [place]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 angina pectoris; Translations: [Ischemic myocardial dysfunction] Onset: 03-22-2017 03-22-2017 Chronic Comment on above: S/P surgery with PARSON A to LAD, SVG to OM system, and SVG to PDA in March 2017 at [facility]; Coronary atherosclerosis and other heart disease [...] Translations: [Essential hypertension] Onset: 07-11-2017 07-11-2017 Chronic Fluid and electrolyte disorders (20 sources) Hyperkalemia; Translations: [Hyponatremia] Onset: 03-24-2019 Resolved: 01-15-2025 10-28-2020 Episodic Fracture of lower limb (1 source) Closed [...] source) Long-term current use of anticoagulant; Translations: [care home (current) use of anticoagulants] 01-07-2025 Episodic Other circulatory disease (20 sources) Personal history of other diseases of the circulatory system; Translations: [History of cardiac arrhythmia] Onset: 04-18-2019 10-28-2020 Episodic Other circulatory disease (6 sources) History [...] of sacrum, unspecified fracture morphology, initial encounter ([facility])] Onset: 01-15-2025 Episodic Other infections; including parasitic [...] right hip joint, sequela] Onset: 3 Episodic Fracture of lower limb (20 sources) [...] unspecified site] Onset: 1 10-28-2020 Episodic Other connective tissue disease (1 [...] (1 source) Pain, unspecified; Translations: [Pain] Onset: 4 Episodic Spondylosis; intervertebral disc disorders; other back [...] Test Name Value Interpretation Reference Range Facility Bedside Glucoseon 01-29-2025 FINGERSTICK GLU 126 mg/dL High 74-106 [facility] Comment on above: Result Comment: BONI KASPER OF PATIENT CARE PER NURSING PROTOCOL Performed By: #### L 501.080 #### [facility] [address] [place], [address] CBC W/Diff, Automatedon SHERRILL CELLS 1+ Normal [facility] Comment on above: Performed By: #### L 501.080 #### [facility] [address] [place], [address] OVALOCYTE RARE Normal [facility] Comment on above: Performed By: #### L 501.080 #### [facility] [address] [place], [address] Anisocytosis Ql (Bld) 3+ Normal [facility] Comment on above: Performed By: #### L 501.080 #### [facility] [address] [place], [address] MACROCYTOSIS 2+ Normal [facility] Comment on above: Performed By: #### L 501.080 #### [facility] [address] [place], [address] PLT EST MOD DEC Normal ADEQ [facility] Comment on above: Performed By: #### L 501.080 #### [facility] [address] [place], [address] POLYCHROMASIA RARE Normal [facility] Comment on above: Performed By: #### L 501.080 #### [facility] [address] [place], [address] SMEAR COMMENT SCANNED Normal [facility] Comment on above: Performed By: #### L 501.080 #### [facility] [address] [place], [address] [id number] 01-29-2025 Procalcitonin 1.83 ng/mL High <=0.10 [facility] Comment on above: Order Comment: ADD O N TO PREVIOUS LABS,TUBE IN LAB:W[place] 4 J -DSCOTT Result Comment: Inte rpretation: <0.10-0.25 ng/mL: Antibiotic [...] of the patient. Performed By: #### L 501.080 #### [facility] [address] [place], [address] Abdomen/Pelvis without Conto n 01-28-2025 Abdomen/Pelvis without Cont [facility] [address] [place] [address] Abdomen/Pelvis without Cont MR#: [id number] Acct: [id number] Name: MAURI QUINONES Rep #: [id number] : 1955 M 69 From: Андрей Carroll MD PCP: Dr. Rigoberto Gould MD Status: [facility] ER Study: Abdomen/Pelvis without Cont Date of Exam: 12/19 Exam# [id number] Ordering Dr: Elizabeth Heart DO PROCEDURE: ABDOMEN/PELVIS WITHOUT CONT 01/28/2025 REASON FOR EXAM: ABDOMINIAL PAIN TECHNIQUE: Contiguous axial scans of 2.5 mm slice thicknesses. Sagittal and coronal reconstruction images were obtained. One or more dose reduction techniques were used (e.g., automated exposure control, adjustment of mA and/or kv according to patient size, use of iterative reconstruction technique). PATIENT PREPARATION: Per protocol ORAL CONTRAST TYPE: None. AMOUNT: 0 mL COMPARISON: CT abdomen without contrast dated 12/29/2024. FINDINGS: Lung bases: Moderate right pleural effusion is redemonstrated. Mild compressive atelectasis in the right lower lobe. Trace left pleural effusion. Areas of ground-glass opacification and interstitial thickening in the bilateral lungs. Marked cardiomegaly. Severe coronary artery calcifications. Liver: Normal in size. Parenchyma is normal in attenuation. No masses are identified. No biliary ductal dilatation. Gallbladder: Mild wall thickening. Tiny high attenuating foci most likely representing tiny gallstones layering dependently. Spleen: Stable splenomegaly. Pancreas: Unremarkable. Adrenals: No nodules. Kidneys: Unremarkable. Bladder: Urinary bladder wall thickening. Reproductive Organs: Unremarkable. Bowel: Diverticulosis without signs of diverticulitis. No signs of small-bowel obstruction. Fecal debris throughout the colon. Appendix: No definite signs of appendicitis. Lymph nodes: No suspicious adenopathy. Vasculature: Severe diffuse atherosclerotic calcific disease involving the visceral arteries in the aortoiliac arteries. Anterior abdominal wall: Small midline ventral hernia. Peritoneum / Retroperitoneum: Moderate ascites redemonstrated. Bones: Anterior wedging of the T9 vertebra. Right hip arthroplasty. Soft tissues: Signs of anasarca. Concern for bilateral gynecomastia. CT/Abdomen/Pelvis without Cont IMPRESSION: 1. No significant interval changes have occurred in the abdomen since the earlier study of 12/29/2024. 2. Cholelithiasis. 3. Moderate ascites. 4. Stable splenomegaly. 5. Concern for cystitis. 6. Diverticulosis without signs of diverticulitis. 7. Severe atherosclerotic calcific disease. 8. Small midline ventral hernia. 9. Anterior wedging of the T9 vertebra. 10. Bilateral pleural effusions, moderate right trace left. 11. Right hip arthroplasty. 12. Severe cardiac enlargement. Severe coronary artery calcifications. 13. Other nonacute findings detailed above. Reading Location: [place] [address] CC: Dr. Elizabeth Heart DO; Dr. Rigoberto Gould MD Drawing Checker: Signed Normal [facility] Antigen C Gammacloneon 01-28 ANTIGEN ID Negative Normal [facility] Comment on above: Order Comment: HGI Performed By: #### M 091.630 #### [facility] [address] [place], [address] [phone] [id number] 01-28-2025 ANTIBODY ID Normal [facility] Comment on above: Order Comment: HGI Result Comment: C D Performed By: #### M 100.638 #### [facility] [address] [place], [address] CBC W/Diff, Automatedon 06-0 Anisocytosis Ql (Bld) 1+ Normal [facility] Comment on above: Performed By: #### L 501.080 #### [facility] [address] [place], [address] OVALOCYTE 1+ Normal [facility] Comment on above: Performed By: #### L 501.080 #### [facility] [address] [place], [address] RED CELL MORPH NORM C+C Normal NORM C C [facility] Comment on above: Performed By: #### L 501.080 #### [facility] [address] [place], [address] PLT EST MOD DEC Normal ADEQ [facility] Comment on above: Performed By: #### L 501.080 #### [facility] [address] [place], [address] Comprehensive Metabolic Prof ilon 01-28-2025 Albumin [Mass/Vol] 3.5 g/dL Normal 3.4-4.8 [facility] Comment on above: Performed By: #### L 501.080 #### [facility] [address] [place], [address] Albumin/Globulin [Mass ratio] 1.1 {ratio} Normal 0.9-2.4 [facility] Comment on above: Performed By: #### L 501.080 #### [facility] [address] [place], [address] ALK PHOS 212 U/L High 40-129 [facility] Comment on above: Performed By: #### L 501.080 #### [facility] [address] [place], [address] ALT [Catalytic activity/Vol] 16 U/L Normal <=46 [facility] Comment on above: Performed By: #### L 501.080 #### [facility] [address] [place], [address] AST [Catalytic activity/Vol] 39 U/L High <=37 [facility] Comment on above: Result Comment: Hemo lysis present, Results??could be affected. ?? Performed By: #### L 501.080 #### [facility] [address] [place], [address] Bilirubin [Mass/Vol] 1.16 mg/dL Normal 0.00-1.30 [facility] Comment on above: Performed By: #### L 501.080 #### [facility] [address] [place], [address] BUN/CRE 8.4 RATIO Low 10-20 [facility] Comment on above: Performed By: #### L 501.080 #### [facility] [address] [place], [address] Calcium [Mass/Vol] 9.2 mg/dL Normal 7.6-11.0 [facility] Comment on above: Performed By: #### L 501.080 #### [facility] [address] [place], [address] Chloride [Moles/Vol] 90 mmol/L Low 98-108 [facility] Comment on above: Performed By: #### L 501.080 #### [facility] [address] [place], [address] CO2 [Moles/Vol] 28.4 mmol/L Normal 21.0-32.0 [facility] Comment on above: Performed By: #### L 501.080 #### [facility] [address] [place], [address] Creatinine [Mass/Vol] 4.45 mg/dL High 0.70-1.20 [facility] Comment on above: Performed By: #### L 501.080 #### [facility] [address] [place], [address] ECRCL 16.63 ml/min Low 50-250 [facility] Comment on above: Performed By: #### L 501.080 #### [facility] [address] [place], [address] GAP 15 Normal 5-15 [facility] Comment on above: Performed By: #### L 501.080 #### [facility] [address] [place], [address] GFR/1.73 sq M.predicted among non-blacks MDRD (S/P/Bld) [Vol rate/Area] 14 mL/min/{1.73_m2} Low >60 [facility] Comment on above: Result Comment: mL/m in/1.73m2 CKD-EPI Creatinine Equation (2020) Performed By: #### L 501.080 #### [facility] [address] [place], [address] Globulin (S) [Mass/Vol] 3.2 g/dL Normal 2.2-4.2 [facility] Comment on above: Performed By: #### L 501.080 #### [facility] [address] [place], [address] Glucose [Mass/Vol] 177 mg/dL High 70-99 [facility] Comment on above: Performed By: #### L 501.080 #### [facility] [address] [place], [address] Potassium [Moles/Vol] 4.2 mmol/L Normal 3.3-5.1 [facility] Comment on above: Result Comment: Hemo lysis present, Results??could be affected. ?? Performed By: #### L 501.080 #### [facility] [address] [place], [address] Sodium [Moles/Vol] 133 mmol/L Normal 133-145 [facility] Comment on above: Performed By: #### L 501.080 #### [facility] [address] [place], [address] T PROT 6.7 g/dL Normal 5.9-8.4 [facility] Comment on above: Performed By: #### L 501.080 #### [facility] [address] [place], [address] Urea nitrogen [Mass/Vol] 37 mg/dL High 4-19 [facility] Comment on above: Performed By: #### L 501.080 #### [facility] [address] [place], [address] Emergency Department Summary on 01-28-2025 Emergency Department Summary [facility] Medical Records Department [address] [place] [address] Emergency Department Summary 01/28/25 MR#: [id number] Acct: [id number] Name: MAURI QUINONES Rep #: [id number] : 1955 69 From: Rafa Felder MD PCP: Dr. Rigoberto Gould MD Status:REG ER Location: ED HPI History of Present Illness Chief Complaint: GI Bleed Detail of Chief Complaint: Reported GI bleed from nursing facility Informant: patient, spouse/S.O. and SNF Onset/Context/Timing Onset: - (Report that patient was noted to have blood in his stool) Context: - (Unknown) Timing: - (Unknown) Quality: Patient reports brown stool. Current Severity: Patient unaware Maximum Severity: patient unaware Worsened by: Patient with history of peptic ulcer disease per spouse and patient is on a Relieved by: Not applicable Associated Symptoms Associated Symptoms: Abdominal pain lower quadrants and distention Narrative Narrative: Patient is a 69-year-old male who presents because of blood in his stool. Patient is unaware if his stool is black or maroon. He believes it is dark. According to spouse he has not been his normal self since he fell and was diagnosed with multiple fractures. They believe this is due to the pain medicine he was prescribed. He was seen in December after fall and had multiple fractures. Dr. Martín Romano's note was reviewed and images were looked at. According the he is now at a nursing facility because of persistent pain and unable to perform activities of daily living. Patient reported to the nurse that she is thirsty. When I asked if he was thirsty or had dry mouth he responded no he then asked for water. Patient is a very unreliable informant. He does endorse bilateral lower quadrant pain. According to the he has had decreased urine output. He apparently is on hemodialysis. The urine output was not an issue until last month. Prior similar symptoms: Yes Recent Illness/Hospital[facility]: [facility] Medical History Persistent atrial fibrillation Paroxysmal atrial fibrillation C. difficile diarrhea Anemia History of GI bleed Pure hypercholesterolemia Ischemic cardiomyopathy Essential hypertension Renal insufficiency Ankylosing spondylitis CAD (coronary artery disease) Overweight (BMI 25.0-29.9) Leg edema Leg swelling Acute systolic heart failure Bradycardia Biliary pleural effusion HTN (hypertension) Ventricular tachyarrhythmia Atherosclerosis of holy cross co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 pectoris Pulmonary HTN Cardiomyopathy [...] 25 mg PO Q6 PRN itch 10/28/24 04/02/18 History tadalafil 20 mg tablet 20 mg [...] (Eliquis) 5 mg PO BID #180 tabs 12/26/2412/19 Rx midodrine 5 mg tablet 5 mg PO TID #270 tabs 12/26/24 Unk nown Rx carvedilol 12.5 mg tablet 12.5 mg PO BID 12/29/24 Unknown Hi story insulin glargine 100 unit/mL (3 unit subcut 12/29/24 Unknown Histo ry mL) subcutaneous pen (Lantus Solostar U-100 Insulin) metolazone 5 mg tablet 5 mg PO DAILY 12/29/24 Unknown His tory hydrocodone-acetaminophen 5-325mg 1 tab PO Q6H PRN pain 30 days #60 01/16/25 Unknown Rx 5mg-325mg tabs Allergy/AdvReac Type Severity Reaction Status Date / Time pregabalin (From Lyrica) Allergy Angioedema Verified 01/06/25 18:09 Family History Father CAD (coronary artery disease) Mother CAD (coronary artery disease) Surgical History History of cataract extraction hx femur surgery Hx of arthroscopy History of open reduction and in (more content not included)... Normal [facility] Hemoglobinon 01-28-2025 Hemoglobin (Bld) [Mass/Vol] 14.3 g/dL Normal 13.0-16.5 [facility] Comment on above: Performed By: #### L 501.080 #### [facility] [address] [place], [address] Lactic Acidon 01-28-2025 Lactate [Moles/Vol] 2.6 mmol/L Invalid Interpretation Code 0.0-2.0 [facility] Comment on above: Result Comment: Crit ical Result(s) Called at 1357: by: OUMOU WHITE TO [employer]. ??Results read back by same. Performed By: #### L 509.7001 #### [facility] [address] [place], [address] Lactate [Moles/Vol] 2.1 mmol/L Invalid Interpretation Code 0.0-2.0 [facility] Comment on above: Order Comment: Y Result Comment: Crit ical Result(s) Called at 1009: by: OUMOU WHITE TO [employer]. ??Results read back by same. Performed By: #### L 501.080 #### [facility] [address] [place], [address] Magnesiumon 01-28-2025 Magnesium [Mass/Vol] 2.4 mg/dL High 1.5-2.2 [facility] Comment on above: Order Comment: Comme nts: May add to ED labsComments: may add to ED labs Performed By: #### L 509.7001 #### [facility] [address] [place], [address] Phosphoruson 01-28-2025 Phosphate [Mass/Vol] 5.2 mg/dL High 2.7-4.5 [facility] Comment on above: Order Comment: Comme nts: May add to ED labsComments: may add to ED labs Performed By: #### L 509.7001 #### [facility] [address] [place], [address] Stool Occult Blood iFOBon STOB Positive Normal [facility] Comment on above: Performed By: #### L 501.080 #### [facility] [address] [place], [place], [address] Type AND Screenon 01-28-2025 Ab SCREEN GEL Positive Normal [facility] Comment on above: Order Comment: HGI Performed By: #### M 100.638 #### [facility] [address] [place], [place], [address] CNPNon 01-22-2025 CNPN Telephone (UROLMD) -- MAURI QUINONES ([id number]) 1955 [facility] Date Time Provider Department 01/22/25 JENSEN PUCKETT JR UROLMD During your visit today, we recorded the following information about you: Lissette Sanabria RN 01/22/2025 9:24 AM Signed Vandana WEINBERG calling from [place] [facility] calling ([phone]) to clarify if the cath once weekly on was a legitimate order. After reviewing discharge summary from inpatient stay it is a valid order. Willshire 5/325 1 tablet before transport to dialysis, before physical therapy, and for his weekly urinary catheterization on urinary catheterization because of recurrent UTIs to be done weekly on THURSDAYS She is aware that it is the correct order. Verbalizes understanding. Allergies As of Date: 01/22/2025 Noted Allergy Reaction LYRICA (PREGABALIN) 03/23/2017 7 - Swelling Date Reviewed: 01/16/2025 Reviewed by: Libby Rodas, SUL[place] - Fully Assessed Reason for Visit: CIC [...] tablet by mouth every morning. - Insulin Ridge, Disposable, (BD ULTRA-FINE GOLDY PEN NEEDLE) 32 [...] and coordination (more content not included)... Normal [facility] Albumin SerPl-mCncon 025 Albumin [Mass/Vol] 3.4 g/dL Low 3.9-4.9 [facility] Comment on above: Order Comment: Speci men Type: BLOOD SPECIMENOrdering Facility: [facility] Address: [address] [place] [address] Performed By: #### 1 751-7, 2777-1, 76861-1 ####[facility]ORATORYCLIA [id number] [place] [address] [place] Basic metabolic 2000 panelon 01-16-2025 Anion gap [Moles/Vol] 13 mmol/L Normal 8-15 [facility] Comment on above: Order Comment: Speci men Type: BLOOD SPECIMENOrdering Facility: [facility] Address: [address] [place] [address] Performed By: #### 1 751-7, 2777-1, 11678-7 ####[facility] LABORATORYCLIA [id number] [place] [address] [place] Calcium [Mass/Vol] 9.9 mg/dL Normal 8.5-10.2 [facility] Comment on above: Order Comment: Speci men Type: BLOOD SPECIMENOrdering Facility: [facility] Address: [address] [place] [address] Performed By: #### 1 751-7, 2777-1, 90295-9 ####[facility] LABORATORYCLIA [id number] [place] [address] [place] Chloride [Moles/Vol] 91 mmol/L Low 98-107 [facility] Comment on above: Order Comment: Speci men Type: BLOOD SPECIMENOrdering Facility: [facility] Address: [address] [place] [address] Performed By: #### 1 751-7, 2777-1, 61253-4 ####[facility] LABORATORYCLIA [id number] [address] [place] [facility] CO2 [Moles/Vol] 27 mmol/L Normal 22-30 [facility] Comment on above: Order Comment: Speci men Type: BLOOD SPECIMENOrdering Facility: [facility] Address: [address] [place] [address] Performed By: #### 1 751-7, 2777-1, 66319-0 ####[facility]ORATORYCLIA [id number] [address] Creatinine [Mass/Vol] 3.66 mg/dL High 0.73-1.22 [facility] Comment on above: Order Comment: Speci men Type: BLOOD SPECIMENOrdering Facility: [facility] Address: [address] [place] [address] Performed By: #### 1 751-7, 2777, 20934-7 ####[facility] LABORATORYCLIA [id number] [address] Creatinine and Glomerular filtration rate.predicted panel (S/P/Bld) 17 mL/min/1.73m??? Low >=60 [facility] Comment on above: Order Comment: Speci men Type: BLOOD SPECIMENOrdering Facility: [facility] Address: [address] [place] [address] Result Comment: Caryl mated Glomerular Filtration Rate [...] GFR. Performed By: #### 1 751-7, 2777-1, 00780-2 ####[facility] LABORATORYCLIA [id number] [place] [address] [place] Glucose [Mass/Vol] 109 mg/dL High 74-99 [facility] Comment on above: Order Comment: Kelsi huff Type: BLOOD SPECIMENOrdering Facility: [facility] Address: [address] [place] [address] Result Comment: The [place] Diabetes [employer] (ADA) provides guidance for cutoff [...] Standards of Medical Care in Diabetes 2016, [place] [employer]. Diabetes Care. 2016.39(Suppl 1). Performed By: #### 1 751-7, 2777-1, 76207-4 ####[facility] LABORATORYCLIA [id number] [place] [address] [place] Potassium [Moles/Vol] 4.4 mmol/L Normal 3.7-5.1 [facility] Comment on above: Order Comment: Kelsi huff Type: BLOOD SPECIMENOrdering Facility: [facility] Address: [address] [place] [address] Performed By: #### 1 751-7, 2777-1, 56510-2 ####[facility] LABORATORYCLIA [id number] [place] [address] [place] Sodium [Moles/Vol] 131 mmol/L Low 136-144 [facility] Comment on above: Order Comment: Kelsi huff Type: BLOOD SPECIMENOrdering Facility: [facility] Address: [address] [place] [address] Performed By: #### 1 751-7, 2777-, 05445-6 ####[facility] LABORATORYCLIA [id number] [place] [address] [place] Urea nitrogen [Mass/Vol] 28 mg/dL High 9-24 [facility] Comment on above: Order Comment: Speci men Type: BLOOD SPECIMENOrdering Facility: [facility] Address: [address] [place] [address] Performed By: #### 1 751-7, 2777-1, 93055-1 ####[facility] LABORATORYCLIA [id number] [address] [place] CBC panel Auto (Bld)on 01-16 Erythrocyte distribution width (RBC) [Ratio] 16.2 % High 11.5-15.0 [facility] Comment on above: Order Comment: Speci men Type: BLOOD SPECIMENOrdering Facility: [facility] Address: [address] [place] [address] Performed By: #### 5 8410-2 ####[facility] LABORATORYCLIA [id number] [address] Hematocrit (Bld) [Volume fraction] 36.1 % Low 39.0-51.0 [facility] Comment on above: Order Comment: Speci men Type: BLOOD SPECIMENOrdering Facility: [facility] Address: [address] [place] [address] Performed By: #### 5 8410-2 ####[facility] LABORATORYCLIA [id number] [address] Hemoglobin (Bld) [Mass/Vol] 11.6 g/dL Low 13.0-17.0 [facility] Comment on above: Order Comment: Speci men Type: BLOOD SPECIMENOrdering Facility: [facility] Address: [address] [place] [address] Performed By: #### 5 8410-2 ####[facility] LABORATORYCLIA [id number] [address] MCH (RBC) [Entitic mass] 31.3 pg Normal 26.0-34.0 [facility] Comment on above: Order Comment: Speci men Type: BLOOD SPECIMENOrdering Facility: [facility] Address: [address] [place] [address] Performed By: #### 5 8410-2 ####[facility] LABORATORYCLIA [id number] [address] MCHC (RBC) [Mass/Vol] 32.1 g/dL Normal 30.5-36.0 [facility] Comment on above: Order Comment: Speci men Type: BLOOD SPECIMENOrdering Facility: [facility] Address: [address] [place] [address] Performed By: #### 5 8410-2 ####[facility] LABORATORYCLIA [id number] [place] [address] [place] MCV (RBC) [Entitic vol] 97.3 fL Normal 80.0-100.0 [facility] Comment on above: Order Comment: Speci men Type: BLOOD SPECIMENOrdering Facility: [facility] Address: [address] [place] [address] Performed By: #### 5 8410-2 ####[facility] LABORATORYCLIA [id number] [address] Nucleated RBC (Bld) [#/Vol] 10*3/uL Normal <0.01 [facility] Comment on above: Order Comment: Speci men Type: BLOOD SPECIMENOrdering Facility: [facility] Address: [address] [place] [address] Performed By: #### 5 8410-2 ####[facility] LABORATORYCLIA [id number] [address] [place] Platelet mean volume (Bld) [Entitic vol] 9.7 fL Normal 9.0-12.7 [facility] Comment on above: Order Comment: Speci men Type: BLOOD SPECIMENOrdering Facility: [facility] Address: [address] [place] [address] Performed By: #### 5 8410-2 ####[facility] LABORATORYCLIA [id number] [address] [place] Platelets (Bld) [#/Vol] 155 10*3/uL Normal 150-400 [facility] Comment on above: Order Comment: Speci men Type: BLOOD SPECIMENOrdering Facility: [facility] Address: [address] [place] [address] Result Comment: No c lot detected. Performed By: #### 5 8410-2 ####[facility] LABORATORYCLIA [id number] [address] RBC (Bld) [#/Vol] 3.71 10*6/uL Low 4.20-6.00 [facility] Comment on above: Order Comment: Speci men Type: BLOOD SPECIMENOrdering Facility: [facility] Address: [address] [place], [place] [address] Performed By: #### 5 8410-2 ####[facility] LABORATORYCLIA [id number] [address] WBC (Bld) [#/Vol] 7.16 10*3/uL Normal 3.70-11.00 [facility] Comment on above: Order Comment: Speci men Type: BLOOD SPECIMENOrdering Facility: [facility] Address: [address] [place] [address] Performed By: #### 5 8410-2 ####[facility] LABORATORYCLIA [id number] [address] CNDSon 01-16-2025 CNDS HNO ID: [id number] Author: EVARISTO DAS MD Service: Hospital Medicine [...] this will be followed up by the chain carrier. Very sensitive to medications and Willshire 5/325 1 tablet before each transport to dialysis, catheterization needed every and 1 tablet of the [place] before 30 minutes before that, 1 tablet [...] as tolerated-patient to get 1 tablet of [place] 30 minutes before physical therapy Diet Instructions [...] presents with fall and left hip pain. Willshire 5/325 1 tablet before transport to dialysis, [...] with fall an (more content not included)... [facility] CONSULT PROGon 01-16-2025 CONSULT PROG HNO ID: [id number] Author: JOSAFAT LOREDO MD Service: Nephrology Author [...] x 1 dose Hypercalcemia workup ordered Normal [facility] Phosphate [Mass/Vol] 5.4 mg/dL High 2.7-4.8 [facility] Comment on above: Order Comment: Speci men Type: BLOOD SPECIMENOrdering Facility: [facility] Address: [address] [place] [address] Performed By: #### 1 751-7, 2777-1, 00438-0 ####[facility] LABORATORYCLIA [id number] [place] [address] [place] 1,25-dihydroxyvitamin D3 [Ma ss/Vol]on 01-15-2025 VIT D1,25 DIHYDROXY 20.6 pg/mL Normal 19.9-79.3 [facility] Comment on above: Order Comment: Speci men Type: BLOOD SPECIMENOrdering Facility: [facility] Address: [address] [place] [address] Performed By: #### 1 649-3 ####[facility] LABCLIA [id number] [place] [id number] [place] Albumin [facility] 025 Albumin [Mass/Vol] 3.5 g/dL Low 3.9-4.9 [facility] Comment on above: Order Comment: Speci men Type: BLOOD SPECIMENOrdering Facility: [facility] Address: [address] [place] [address] Performed By: #### 2 4321-2, 1750-7, 3083-1, 90481-4, 2776-1 ####[facility] LABORATORYCLIA [id number] [place] [id number] [place] Basic metabolic 2000 panelon 01-15-2025 Anion gap [Moles/Vol] 16 mmol/L High 8-15 [facility] Comment on above: Order Comment: Speci men Type: BLOOD SPECIMENOrdering Facility: [facility] Address: [address] [place] [address] Performed By: #### 2 4321-2, 175-7, 3084-1, 83423-9, 2776-1 ####[facility] LABORATORYCLIA [id number] [place] [address] [place] Calcium [Mass/Vol] 10.7 mg/dL High 8.5-10.2 [facility] Comment on above: Order Comment: Speci men Type: BLOOD SPECIMENOrdering Facility: [facility] Address: [address] [place] [address] Performed By: #### 2 4321-2, 1750-7, 3084-1, 34601-8, 2776- ####[facility] LABORATORYCLIA [id number] [place] [id number] [place] Chloride [Moles/Vol] 88 mmol/L Low 98-107 [facility] Comment on above: Order Comment: Speci men Type: BLOOD SPECIMENOrdering Facility: [facility] Address: [address] [place] [address] Performed By: #### 2 4321-2, 1750-7, 3083-1, 75014-8, 2776- ####[facility] LABORATORYCLIA [id number] [place] [address] [place] CO2 [Moles/Vol] 26 mmol/L Normal 22-30 [facility] Comment on above: Order Comment: Speci men Type: BLOOD SPECIMENOrdering Facility: [facility] Address: [address] [place] [address] Performed By: #### 2 4321-2, 1750-7, 3084-1, 39344-0, 2776-1 ####[facility] LABORATORYCLIA [id number] [place] [address] [place] Creatinine [Mass/Vol] 5.16 mg/dL High 0.73-1.22 [facility] Comment on above: Order Comment: Speci men Type: BLOOD SPECIMENOrdering Facility: [facility] Address: [address] [place] [address] Performed By: #### 2 4321-2, 1750-7, 3084-1, 78155-1, 2776-1 ####[facility] LABORATORYCLIA [id number] [place] [id number] [place] Creatinine and Glomerular filtration rate.predicted panel (S/P/Bld) 12 mL/min/1.73m??? Low >=60 [facility] Comment on above: Order Comment: Kelsi huff Type: BLOOD SPECIMENOrdering Facility: [facility] Address: [address] [place] [address] Result Comment: Caryl mated Glomerular Filtration Rate [...] GFR. Performed By: #### 2 4321-2, 1750-7, 3083-, , 2776-08 ####EL[facility] LABORATORYCLIA [id number] [place] [address] [place] Glucose [Mass/Vol] 107 mg/dL High 74-99 [facility] Comment on above: Order Comment: Kelsi huff Type: BLOOD SPECIMENOrdering Facility: [facility] Address: [address] [place] [address] Result Comment: The [place] [employer] (ADA) provides guidance for cutoff [...] Standards of Medical Care in Diabetes 2016, [place] [employer]. Diabetes Care. 2016.39(Suppl 1). Performed By: #### 2 4321-2, 1750-7, 3083-, , 2776-08 ####[facility] LABORATORYCLIA [id number] [place] [address] [place] Potassium [Moles/Vol] 5.8 mmol/L High 3.7-5.1 [facility] Comment on above: Order Comment: Speci men Type: BLOOD SPECIMENOrdering Facility: [facility] Address: [address] [place] [address] Performed By: #### 2 4321-2, 7, 3083-, 69549-4, 2776-08 ####[facility] LABORATORYCLIA [id number] [address] [place] Sodium [Moles/Vol] 130 mmol/L Low 136-144 [facility] Comment on above: Order Comment: Speci men Type: BLOOD SPECIMENOrdering Facility: [facility] Address: [address] [place] [address] Performed By: #### 2 4321-2, 1751-02, 3083-, , 2776-08 ####[facility] LABORATORYCLIA [id number] [address] [place] Urea nitrogen [Mass/Vol] 51 mg/dL High 9-24 [facility] Comment on above: Order Comment: Speci men Type: BLOOD SPECIMENOrdering Facility: [facility] Address: [address] [place] [address] Performed By: #### 2 4321-2, 1751-02, 3083-08, , 2776-08 ####[facility] LABORATORYCLIA [id number] [address] [place] CBC panel Auto (Bld)on 01-15 Erythrocyte distribution width (RBC) [Ratio] 16.2 % High 11.5-15.0 [facility] Comment on above: Order Comment: Speci men Type: BLOOD SPECIMENOrdering Facility: [facility] Address: [address] [place] [address] Performed By: #### 5 8410-2 ####[facility] LABORATORYCLIA [id number] [address] Hematocrit (Bld) [Volume fraction] 39.5 % Normal 39.0-51.0 [facility] Comment on above: Order Comment: Speci men Type: BLOOD SPECIMENOrdering Facility: [facility] Address: [address] [place] [address] Performed By: #### 5 8410-2 ####[facility] LABORATORYCLIA [id number] [address] [place] Hemoglobin (Bld) [Mass/Vol] 12.6 g/dL Low 13.0-17.0 [facility] Comment on above: Order Comment: Speci men Type: BLOOD SPECIMENOrdering Facility: [facility] Address: [address] [place] [address] Performed By: #### 5 8410-2 ####[facility] LABORATORYCLIA [id number] [address] [place] MCH (RBC) [Entitic mass] 31.2 pg Normal 26.0-34.0 [facility] Comment on above: Order Comment: Speci men Type: BLOOD SPECIMENOrdering Facility: [facility] Address: [address] [place] [address] Performed By: #### 5 8410-2 ####[facility] LABORATORYCLIA [id number] [address] [place] MCHC (RBC) [Mass/Vol] 31.9 g/dL Normal 30.5-36.0 [facility] Comment on above: Order Comment: Speci men Type: BLOOD SPECIMENOrdering Facility: [facility] Address: [address] [place], [place] [address] Performed By: #### 5 8410-2 ####ADAM LABORATORYCLIA [id number] [address] STATES [facility] MCV (RBC) [Entitic vol] 97.8 fL Normal 80.0-100.0 [facility] Comment on above: Order Comment: Speci men Type: BLOOD SPECIMENOrdering Facility: [facility] Address: [address] [place] [address] Performed By: #### 5 8410-2 ####ADAM LABORATORYCLIA [id number] [address] Nucleated RBC (Bld) [#/Vol] 10*3/uL Normal <0.01 [facility] Comment on above: Order Comment: Speci men Type: BLOOD SPECIMENOrdering Facility: [facility] Address: [facility] [place] [address] Performed By: #### 5 8410-2 ####ADAM LABORATORYCLIA [id number] [address] Platelet mean volume (Bld) [Entitic vol] 10.4 fL Normal 9.0-12.7 [facility] Comment on above: Order Comment: Speci men Type: BLOOD SPECIMENOrdering Facility: [facility] Address: [address] [place] [address] Performed By: #### 5 8410-2 ####ADAM LABORATORYCLIA [id number] [place] [address] [place] [facility] Platelets (Bld) [#/Vol] 146 10*3/uL Low 150-400 [facility] Comment on above: Order Comment: Speci men Type: BLOOD SPECIMENOrdering Facility: [facility] Address: [address] [place] [address] Performed By: #### 5 8410-2 ####ADAM LABORATORYCLIA [id number] [place] [address] [place] RBC (Bld) [#/Vol] 4.04 10*6/uL Low 4.20-6.00 [facility] Comment on above: Order Comment: Speci men Type: BLOOD SPECIMENOrdering Facility: [facility] Address: [address] [place] [address] Performed By: #### 5 8410-2 ####ADAM LABORATORYCLIA [id number] [address] [place] WBC (Bld) [#/Vol] 8.75 10*3/uL Normal 3.70-11.00 [facility] Comment on above: Order Comment: Speci men Type: BLOOD SPECIMENOrdering Facility: [facility] Address: [address] [place] [address] Performed By: #### 5 8410-2 ####ADAM LABORATORYCLIA [id number] [address] CONSULT PROGon 01-15-2025 CONSULT PROG HNO ID: [id number] Author: JOSAFAT LOREDO MD Service: Nephrology Author [...] 2 mg tab(s) (BUMEX) 2 mg ORAL -WE benzonatate 100 mg cap(s) (TESSALON PERLE) 100 [...] Intake/Output Summary (Last 24 hours) at 01/15/2025 08 Last data filed at 01/15/2025 0255 Gross [...] CHLOR -- 89* 87* 89* CO2 -- BUN -- 41* 36* 53* CREAT -- [...] x 1 dose Hypercalcemia workup ordered Normal [facility] IMMUNOFIXATION SCREEN, SERUM on 01-15-2025 MPA RESULT No M protein is identified. Normal No M protein is identified. [facility] Comment on above: Order Comment: Kelsi huff Type: BLOOD SPECIMENOrdering Facility: [facility] Address: [address] [place] [address] Performed By: #### L [id number], IFES ####[facility] LABIA [id number] [place] [address] [place] STAFF REVIEW ([facility]) Reviewed by Aries Young MD, Ph.D ([id number]) Normal [facility] Comment on above: Order Comment: Kelsi huff Type: BLOOD SPECIMENOrdering Facility: [facility] Address: [address] [place] [address] Performed By: #### L [id number], IFES ####[facility] LABIA [id number] [place] [id number] [place] KAPPA/AN,FREE,SERon 2024 Immunoglobulin light chains.kappa.free (S) [Mass/Vol] 168.9 mg/L High 3.3-19.4 [facility] Comment on above: Order Comment: Kelsi huff Type: BLOOD SPECIMENOrdering Facility: [facility] Address: [address] [place] [address] Result Comment: Rare ly, increased serum free light chains levels may not be detected or accurately quantified due to prozone phenomenon or in high viscosity samples using this immunoturbidimetric assay. Correlation with other laboratory results and clinical findings is recommended. The [place] Free Light Chain was performed using the Binding Site Optilite immunoturbidimetric method. Result obtained with different assay methods or kits cannot be used interchangeably. Performed By: #### K LFRS ####[facility] LABCLIA [id number] [place] [address] [place] Immunoglobulin light chains.kappa/Immunogl obulin light chains.lambda (S) [Mass ratio] 0.68 Normal 0.26-1.65 [facility] Comment on above: Order Comment: Speci men Type: BLOOD SPECIMENOrdering Facility: [facility] Address: [address] [place] [address] Performed By: #### K LFRS ####[facility] LABCLIA [id number] [place] [address] [place] Immunoglobulin light chains.lambda.free [Mass/Vol] 249.1 mg/L High 5.7-26.3 [facility] Comment on above: Order Comment: Speci men Type: BLOOD SPECIMENOrdering Facility: [facility] Address: [address] [place] [address] Result Comment: Rare ly, increased serum free [...] used interchangeably. Performed By: #### K LFRS ####[facility] LABCLIA [id number] [place] [address] [place] Magnesium SerPl-mCncon 01-15 Magnesium [Mass/Vol] 2.5 mg/dL High 1.7-2.3 [facility] Comment on above: Order Comment: Speci men Type: BLOOD SPECIMENOrdering Facility: [facility] Address: [address] [place] [address] Performed By: #### 2 4321-2, 1751-7, 3084-1, 90874-4, 2777-1 ####ADAM LABORATORYCLIA [id number] [place] [address] [place] PROTEIN ELECTROPHORESIS SERU M WITH FLO (P)on 01-15-2025 Albumin [Mass/Vol] 3.26 g/dL Low 3.43-5.41 [facility] Comment on above: Order Comment: Speci men Type: BLOOD SPECIMENOrdering Facility: [facility] Address: [address] [place] [address] Performed By: #### Farhana [id number], IFESC ####[facility] LABCLIA [id number] [place] [address] [place] Alpha 1 globulin Elph [Mass/Vol] 0.45 g/dL High 0.18-0.43 [facility] Comment on above: Order Comment: Speci men Type: BLOOD SPECIMENOrdering Facility: [facility] Address: [address] [place] [address] Performed By: #### L [id number], IFESC ####[facility] LABCLIA [id number] [place] [address] [place] Alpha 2 globulin Elph [Mass/Vol] 0.64 g/dL Normal 0.42-0.98 [facility] Comment on above: Order Comment: Speci men Type: BLOOD SPECIMENOrdering Facility: [facility] Address: [address] [place] [address] Performed By: #### L [id number], IFESC ####[facility] LABCLIA [id number] [place] [address] [place] Beta globulin Elph [Mass/Vol] 0.80 g/dL Normal 0.61-1.17 [facility] Comment on above: Order Comment: Speci men Type: BLOOD SPECIMENOrdering Facility: [facility] Address: [address] [place] [address] Performed By: #### L [id number], IFESC ####[facility] LABCLIA [id number] [address] [place] COMMENT (SERUM PROT ELECTRO) A reflex test for Monoclonal Protein analysis (immunofixation) has been ordered. Normal [facility] Comment on above: Order Comment: Speci men Type: BLOOD SPECIMENOrdering Facility: [facility] Address: [address] [place] [address] Performed By: #### L [id number], IFESC ####[facility] LABCLIA [id number] [place] [address] [place] Gamma globulin Elph [Mass/Vol] 1.15 g/dL Normal 0.53-1.51 [facility] Comment on above: Order Comment: Speci men Type: BLOOD SPECIMENOrdering Facility: [facility] Address: [address] [place] [address] Performed By: #### L [id number], IFESC ####[facility] LABIA [id number] [address] [place] M-PROTEIN LOCATION Normal [facility] Comment on above: Order Comment: Speci men Type: BLOOD SPECIMENOrdering Facility: [facility] Address: [address] [place] [address] Result Comment: Not Applicable. Performed By: #### L [id number], IFESC ####[facility] LABCLIA [id number] [address] [address] [place] Protein Fractions [Interp] No definitive M protein is identified on protein electrophoresis. Normal No definitive M protein is identified on protein electrophore sis. [facility] Comment on above: Order Comment: Speci men Type: BLOOD SPECIMENOrdering Facility: [facility] Address: [address] [place] [address] Performed By: #### L [id number], IFESC ####[facility] LABCLIA [id number] [address] Protein.monoclonal Elph [Mass/Vol] 0.00 g/dL Normal <=0.00 [facility] Comment on above: Order Comment: Speci men Type: BLOOD SPECIMENOrdering Facility: [facility] Address: [address] [place] [address] Performed By: #### L [id number], IFESC ####[facility] LABCLIA [id number] [address] SPE STAFF REVIEW Reviewed by Aries Young MD, Ph.D ([id number]) Normal [facility] Comment on above: Order Comment: Speci men Type: BLOOD SPECIMENOrdering Facility: [facility] Address: [address] [place] [address] Performed By: #### L [id number], IFESC ####[facility] LABCLIA [id number] [address] Phosphate SerPl-mCncon 01-15 Phosphate [Mass/Vol] 7.7 mg/dL High 2.7-4.8 [facility] Comment on above: Order Comment: Speci men Type: BLOOD SPECIMENOrdering Facility: [facility] Address: [address] [place] [address] Performed By: #### 2 4321-2, 1751-7, 3084-1, 50280-9, 2777-1 ####EL[facility]A LABORATORYCLIA [id number] [place] [id number] [facility] [place] Prot SerPl-mCncon 01-15-2025 Protein [Mass/Vol] 6.3 g/dL Normal 6.3-8.0 [facility] Comment on above: Order Comment: Speci men Type: BLOOD SPECIMENOrdering Facility: [facility] Address: [address] [place] [address] Performed By: #### 2 885-2 ####[facility] LABCLIA [id number] [place] [id number] [facility] THERAPY NTon 01-15-2025 THERAPY NT HNO ID: [id number] Author: SONA HILL PT Service: Physical Therapy Author Type: Physical Therapist Type: Therapy (PT/OT/Speech/Resp) Filed: 01/15/2025 09:22 Note Text: -- Summary: PT missed visit -- PHYSICAL THERAPY MISSED VISIT SERVICE DATE: 01/15/2025 SERVICE TIME: 909 ROOM: [place] [address] ([facility] [place] [address]) Patient not seen due to Test / Procedure. Patient at dialysis. Will approach as patient appropriate and available. SIGNATURE: Sona Hill PT PATIENT NAME: Mauri Quinones DATE: January 15, 2025 TIME: 9:21 AM [facility] THERAPY NT HNO ID: [id number] Author: FLOYD RIVAS OTR/L Service: Occupational Therapy Author Type: Occupational Therapist Type: Therapy (PT/OT/Speech/Resp) Filed: 01/15/2025 09:10 Note Text: -- Summary: OT missed -- OCCUPATIONAL THERAPY MISSED VISIT SERVICE DATE: 01/15/2025 SERVICE TIME: 0900 ROOM: [place] [address] Patient not seen due to Test / Procedure. Patient preparing to be transferred to dialysis. Will re attempt as schedule permits. SIGNATURE: SLIM Raines/Farhana PATIENT NAME: Mauri Quinones DATE: January 15, 2025 TIME: 9:10 AM Normal [facility] Urate SerPl-mCncon Urate [Mass/Vol] 5.3 mg/dL Normal 4.0-8.1 [facility] Comment on above: Order Comment: Kelsi huff Type: BLOOD SPECIMENOrdering Facility: [facility] Address: [address] [place] [address] Performed By: #### 2 4321-2, 1751-7, 3084-1, 21590-2, 2777-1 ####ELROSA LABORATORYCLIA [id number] [place] [id number] [place] Basic metabolic 2000 panelon 01-14-2025 Anion gap [Moles/Vol] 17 mmol/L High 8-15 [facility] Comment on above: Order Comment: Kelsi huff Type: BLOOD SPECIMENOrdering Facility: [facility] Address: [address] [place] [address] Performed By: #### 2 4321-2 ####ADAM LABORATORYCLIA [id number] [place] [id number] [place] Calcium [Mass/Vol] 10.8 mg/dL High 8.5-10.2 [facility] Comment on above: Order Comment: Kelsi huff Type: BLOOD SPECIMENOrdering Facility: [facility] Address: [address] [place] [address] Performed By: #### 2 4321-2 ####ADAM LABORATORYCLIA [id number] [place] [address] [place] Chloride [Moles/Vol] 89 mmol/L Low 98-107 [facility] Comment on above: Order Comment: Speci men Type: BLOOD SPECIMENOrdering Facility: [facility] Address: [address] [place] [address] Performed By: #### 2 4321-2 ####ADAM LABORATORYCLIA [id number] [place] [address] [place] CO2 [Moles/Vol] 25 mmol/L Normal 22-30 [facility] Comment on above: Order Comment: Speci men Type: BLOOD SPECIMENOrdering Facility: [facility] Address: [address] [place] [address] Performed By: #### 2 4321-2 ####ADAM LABORATORYCLIA [id number] [address] STATES OF [facility] Creatinine [Mass/Vol] 4.42 mg/dL High 0.73-1.22 [facility] Comment on above: Order Comment: Speci men Type: BLOOD SPECIMENOrdering Facility: [facility] Address: [address] [place] [address] Performed By: #### 2 4321-2 ####ADAM LABORATORYCLIA [id number] [address] Creatinine and Glomerular filtration rate.predicted panel (S/P/Bld) 14 mL/min/1.73m??? Low >=60 [facility] Comment on above: Order Comment: Samanthai daria Type: BLOOD SPECIMENOrdering Facility: [facility] Address: [address] [place] [address] Result Comment: Caryl mated Glomerular Filtration Rate [...] Performed By: #### 2 4321-2 ####ADAM LABORATORYCLIA [id number] [address] [place] Glucose [Mass/Vol] 112 mg/dL High 74-99 [facility] Comment on above: Order Comment: Kelsi huff Type: BLOOD SPECIMENOrdering Facility: [facility] Address: [address] [place] [address] Result Comment: The [place] Diabetes Association (ADA) provides guidance for cutoff [...] Standards of Medical Care in Diabetes 2016, [place] [employer]. Diabetes Care. 2016.39(Suppl 1). Performed By: #### 2 4321-2 ####ADAM LABORATORYCLIA [id number] [place] [address] [place] Potassium [Moles/Vol] 4.9 mmol/L Normal 3.7-5.1 [facility] Comment on above: Order Comment: Kelsi huff Type: BLOOD SPECIMENOrdering Facility: [facility] Address: [address] [place] [address] Performed By: #### 2 4321-2 ####ADAM LABORATORYCLIA [id number] [place] [address] [place] Sodium [Moles/Vol] 131 mmol/L Low 136-144 [facility] Comment on above: Order Comment: Samanthai men Type: BLOOD SPECIMENOrdering Facility: [facility] Address: [address] [place] [address] Performed By: #### 2 4321-2 ####ADAM LABORATORYCLIA [id number] [place] [id number] [place] Urea nitrogen [Mass/Vol] 41 mg/dL High 9-24 [facility] Comment on above: Order Comment: Kelsi men Type: BLOOD SPECIMENOrdering Facility: [facility] Address: [address] [place] [address] Performed By: #### 2 4321-2 ####ADAM LABORATORYCLIA [id number] [place] [address] [place] Anion gap [Moles/Vol] 16 mmol/L High 8-15 [facility] Comment on above: Order Comment: Speci men Type: BLOOD SPECIMENOrdering Facility: [facility] Address: [address] [place] [address] Performed By: #### 2 4321-2 ####ADAM LABORATORYCLIA [id number] [place] [address] [place] Calcium [Mass/Vol] 10.8 mg/dL High 8.5-10.2 [facility] Comment on above: Order Comment: Speci men Type: BLOOD SPECIMENOrdering Facility: [facility] Address: [address] [place] [address] Performed By: #### 2 4321-2 ####ADAM LABORATORYCLIA [id number] [place] [address] [place] Chloride [Moles/Vol] 87 mmol/L Low 98-107 [facility] Comment on above: Order Comment: Speci men Type: BLOOD SPECIMENOrdering Facility: [facility] Address: [address] [place] [address] Performed By: #### 2 4321-2 ####DAAM LABORATORYCLIA [id number] [place] [address] [place] CO2 [Moles/Vol] 26 mmol/L Normal 22-30 [facility] Comment on above: Order Comment: Speci men Type: BLOOD SPECIMENOrdering Facility: [facility] Address: [address] [place] [address] Performed By: #### 2 4321-2 ####ADAM LABORATORYCLIA [id number] [place] [address] [place] Creatinine [Mass/Vol] 4.02 mg/dL High 0.73-1.22 [facility] Comment on above: Order Comment: Speci men Type: BLOOD SPECIMENOrdering Facility: [facility] Address: [address] [place] [address] Performed By: #### 2 4321-2 ####ADAM LABORATORYCLIA [id number] [place] [address] [place] Creatinine and Glomerular filtration rate.predicted panel (S/P/Bld) 16 mL/min/1.73m??? Low >=60 [facility] Comment on above: Order Comment: Kelsi huff Type: BLOOD SPECIMENOrdering Facility: [facility] Address: [address] [place] [address] Result Comment: Caryl mated Glomerular Filtration Rate [...] Performed By: #### 2 4321-2 ####ADAM LABORATORYCLIA [id number] [place] [address] [place] Glucose [Mass/Vol] 124 mg/dL High 74-99 [facility] Comment on above: Order Comment: Kelsi huff Type: BLOOD SPECIMENOrdering Facility: [facility] Address: [address] [place] [address] Result Comment: The [place] Diabetes Association (ADA) provides guidance for cutoff [...] Standards of Medical Care in Diabetes 2016, [place] [employer]. Diabetes Care. 2016.39(Suppl 1). Performed By: #### 2 4321-2 ####ELROSA LABORATORYCLIA [id number] [place] [id number] [place] Potassium [Moles/Vol] 5.6 mmol/L High 3.7-5.1 [facility] Comment on above: Order Comment: Speci men Type: BLOOD SPECIMENOrdering Facility: [facility] Address: [address] [place] [address] Performed By: #### 2 4321-2 ####ADAM LABORATORYCLIA [id number] [address] Sodium [Moles/Vol] 129 mmol/L Low 136-144 [facility] Comment on above: Order Comment: Speci men Type: BLOOD SPECIMENOrdering Facility: [facility] Address: [address] [place] [address] Performed By: #### 2 4321-2 ####ADAM LABORATORYCLIA [id number] [address] STATES [facility] Urea nitrogen [Mass/Vol] 36 mg/dL High 9-24 [facility] Comment on above: Order Comment: Speci men Type: BLOOD SPECIMENOrdering Facility: [facility] Address: [address] [place] [address] Performed By: #### 2 4321-2 ####ADAM LABORATORYCLIA [id number] [address] CBC panel Auto (Bld)on 01-14 Erythrocyte distribution width (RBC) [Ratio] 16.2 % High 11.5-15.0 [facility] Comment on above: Order Comment: Speci men Type: BLOOD SPECIMENOrdering Facility: [facility] Address: [address] [place] [address] Performed By: #### 5 8410-2 ####ADAM LABORATORYCLIA [id number] [address] Hematocrit (Bld) [Volume fraction] 39.9 % Normal 39.0-51.0 [facility] Comment on above: Order Comment: Speci men Type: BLOOD SPECIMENOrdering Facility: [facility] Address: [address] [place] [address] Performed By: #### 5 8410-2 ####ADAM LABORATORYCLIA [id number] [address] Hemoglobin (Bld) [Mass/Vol] 13.2 g/dL Normal 13.0-17.0 [facility] Comment on above: Order Comment: Speci men Type: BLOOD SPECIMENOrdering Facility: [facility] Address: [address] [place] [address] Performed By: #### 5 8410-2 ####ADAM LABORATORYCLIA [id number] [address] MCH (RBC) [Entitic mass] 31.7 pg Normal 26.0-34.0 [facility] Comment on above: Order Comment: Speci men Type: BLOOD SPECIMENOrdering Facility: [facility] Address: [address] [place] [address] Performed By: #### 5 8410-2 ####ADAM LABORATORYCLIA [id number] [address] MCHC (RBC) [Mass/Vol] 33.1 g/dL Normal 30.5-36.0 [facility] Comment on above: Order Comment: Speci men Type: BLOOD SPECIMENOrdering Facility: [facility] Address: [address] [place] [address] Performed By: #### 5 8410-2 ####ADAM LABORATORYCLIA [id number] [address] MCV (RBC) [Entitic vol] 95.9 fL Normal 80.0-100.0 [facility] Comment on above: Order Comment: Speci men Type: BLOOD SPECIMENOrdering Facility: [facility] Address: [address] [place] [address] Performed By: #### 5 8410-2 ####ADAM LABORATORYCLIA [id number] [address] Nucleated RBC (Bld) [#/Vol] 10*3/uL Normal <0.01 [facility] Comment on above: Order Comment: Speci men Type: BLOOD SPECIMENOrdering Facility: [facility] Address: [address] [place] [address] Performed By: #### 5 8410-2 ####ADAM LABORATORYCLIA [id number] [address] Platelet mean volume (Bld) [Entitic vol] 10.5 fL Normal 9.0-12.7 [facility] Comment on above: Order Comment: Kelsi huff Type: BLOOD SPECIMENOrdering Facility: [facility] Address: [address] [place] [address] Performed By: #### 5 8410-2 ####ELROSA LABORATORYCLIA [id number] [address] [place] Platelets (Bld) [#/Vol] 149 10*3/uL Low 150-400 [facility] Comment on above: Order Comment: Kelsi huff Type: BLOOD SPECIMENOrdering Facility: [facility] Address: [address] [place] [address] Performed By: #### 5 8410-2 ####ELROSA LABORATORYCLIA [id number] [address] [place] RBC (Bld) [#/Vol] 4.16 10*6/uL Low 4.20-6.00 [facility] Comment on above: Order Comment: Kelsi huff Type: BLOOD SPECIMENOrdering Facility: [facility] Address: [address] [place] [address] Performed By: #### 5 8410-2 ####ELROSA LABORATORYCLIA [id number] [address] [place] WBC (Bld) [#/Vol] 11.11 10*3/uL High 3.70-11.00 [facility] Comment on above: Order Comment: Kelsi huff Type: BLOOD SPECIMENOrdering Facility: [facility] Address: [address] [place] [address] Performed By: #### 5 8410-2 ####ELROSA LABORATORYCLIA [id number] [place] [id number] [facility] CONSULT PROGon 01-14-2025 CONSULT PROG HNO ID: [id number] Author: JOSAFAT LOREDO MD Service: Nephrology Author [...] 5 mg 3 times a day Normal [facility] ECG COMPLETEon 01-14-2025 ECG COMPLETE Ventricular Rate : 9 0 BPM QRS Duration : 160 ms Q-T Interval : 406 ms QTC Calculation(Bazett) : 496 ms Calculated R [place] : -89 degrees Calculated T [place] : 105 degrees ATRIAL FIBRILLATION RIGHT BUNDLE BRANCH BLOCK LEFT ANTERIOR FASCICULAR BLOCK BIFASCICULAR BLOCK ABNORMAL ECG WHEN COMPARED WITH ECG OF 13-Jan-2025 10:17, NO SIGNIFICANT CHANGE WAS FOUND Confirmed by RUTH ANN CLAYTON MD ([id number]) on 01/14/2025 1:45:12 PM NAME : MAURI QUINONES PID : [id number] : 1955 Gender : Male Race : ORD : [id number] Procedure Date : Jan 14 2025 09:34:09 Edit Date : Jan 14 2025 13:45:16 Diagnosis: ATRIAL FIBRILLATION RIGHT BUNDLE BRANCH BLOCK LEFT ANTERIOR FASCICULAR BLOCK BIFASCICULAR BLOCK ABNORMAL ECG WHEN COMPARED WITH ECG OF 13-Jan-2025 10:17, NO SIGNIFICANT CHANGE WAS FOUND Confirmed by RUTH ANN CLAYTON MD ([id number]) on 01/14/2025 1:45:12 PM Test Reason : Arrhythmia Location : 3 : 2N 0256 Overread By : RUTH ANN CLAYTON MD Edited By : RUTH ANN CLAYTON MD Referred By : MARTÍN ROMANO Acquired by : [id number], [facility] THERAPY NTon 01-14-2025 THERAPY NT HNO ID: [id number] Author: SONA HILL PT Service: Physical Therapy Author Type: Physical Therapist Type: Therapy (PT/OT/Speech/Resp) Filed: 01/14/2025 15:08 Note Text: -- Summary: PT treatment -- Physical Therapy Treatment Summary SERVICE DATE: 01/14/2025 SERVICE TIME: 1420 to 1443 ROOM: [id number] PT 6 Clicks Score: 8 DISCHARGE RECOMMENDATIONS [...] DIAGNOSIS Reduced mobility-other TREATMENT INTERVENTIONS Therapeutic Activity (37863) Timed Code Treatment (minutes): 23 Skilled Treatment Time (minutes): 23 Therapeutic Activity (66122) Treatment Minutes: 23 $ Therapeutic Activity (44714) Billed Units: 2 units TRAINING AND EDUCATION [...] Correction FUNCTIONAL STATU (more content not included)... [facility] 01-13-2025 [facility] HNO ID: [id number] Author: JOCELIN CARDOZA CT Service: Radiology Author Type: Technologist Type: [facility] Filed: 01/13/2025 17:17 Note Text: Radiology Service [...] PATIENT PRESENTS WITH AN IMPLANTABLE OR ATTACHED HOSPICE CARE CONSULTANT: No RADIOLOGY DEPARTMENT: CT; Exam(s) Completed: Chest PERIPHERAL IV DATA: Inpatient: see LDA documentation SIGNED BY: WILLIAMS Eugene January 13, 2025 5:17 PM [facility] HNO ID: [id number] Author: SILVIANO WOOD Tech Service: Radiology Author Type: Plastering Supervisor Type: [facility] Filed: 01/13/2025 07:38 Note Text: Radiology Service [...] PATIENT PRESENTS WITH AN IMPLANTABLE OR ATTACHED HOSPICE CARE CONSULTANT: No RADIOLOGY DEPARTMENT: General X-ray: Exam(s) Completed: Chest X-Ray PERIPHERAL IV DATA: Not applicable SIGNED BY: Robert Huffman January 13, 2025 7:38 AM Normal [facility] ARTERIAL BLOOD GASESon 01-13 Base deficit (BldA) [Moles/Vol] -3 mmol/L Low -2-0 [facility] Comment on above: Order Comment: Speci men Type: ARTERIAL BLOOD SPECIMENOrdering Facility: [facility] Address: [address] [place] [address] Performed By: #### A LLBG ####[place] [id number] [place] [address] RESPIRATORY [id number] [address] [address] Carboxyhemoglobin (BldA) [Mass fraction] 1.8 % Normal 0.0-2.0 [facility] Comment on above: Order Comment: Speci men Type: ARTERIAL BLOOD SPECIMENOrdering Facility: [facility] Address: [address] [place] [address] Result Comment: Carb oxyhemoglobin Reference Range for Smokers: 2.0-8.0% Performed By: #### A LLBG ####[id number] [place] [address] RESPIRATORY [id number] [address] [address] CO2 (Bld) [Partial pressure] 37 mm Hg Normal 36-46 [facility] Comment on above: Order Comment: Speci men Type: ARTERIAL BLOOD SPECIMENOrdering Facility: [facility] Address: [address] [place] [address] Performed By: #### A LLBG ####[address] [place] [address] RESPIRATORY [id number] [address] [address] CO2 adjusted to patient's actual temperature (Bld) [Partial pressure] Normal [facility] Comment on above: Order Comment: Speci men Type: ARTERIAL BLOOD SPECIMENOrdering Facility: [facility] Address: [address] [place] [id number] Performed By: #### A LLBG ####[facility] RESPIRATORYIA [id number] [facility] RESPIRATORY [id number] [address] [address] HCO3 (Bld) [Moles/Vol] 22 mmol/L Normal 22-26 [facility] Comment on above: Order Comment: Speci men Type: ARTERIAL BLOOD SPECIMENOrdering Facility: [facility] Address: [address] [place] [address] Performed By: #### A LLBG ####[place] RESPIRATORYIA [id number] [facility] RESPIRATORY [id number] [address] [address] Hemoglobin (Bld) [Mass/Vol] 14.1 g/dL Normal 13.0-17.0 [facility] Comment on above: Order Comment: Speci men Type: ARTERIAL BLOOD SPECIMENOrdering Facility: [facility] Address: [address] [place] [id number] Performed By: #### A LLBG ####[facility] [id number] [facility]OS[facility] RESPIRATORY [id number] [address] [address] Lactate [Moles/Vol] 1.8 mmol/L Normal 0.5-2.2 [facility] Comment on above: Order Comment: Speci men Type: ARTERIAL BLOOD SPECIMENOrdering Facility: [facility] Address: [address] [place] [id number] Performed By: #### A LLBG ####[facility] RESPIRATORYIA [id number] [facility]OSPITAL RESPIRATORY [id number] [address] [address] LITERS 2 Liters/min Normal [facility] Comment on above: Order Comment: Speci men Type: ARTERIAL BLOOD SPECIMENOrdering Facility: [facility] Address: [address] [place] [address] Performed By: #### A LLBG ####[facility] [id number] [facility]OSP[facility] RESPIRATORY [id number] [address] [address] Methemoglobin (Bld) [Mass fraction] % Normal 0.0-1.5 [facility] Comment on above: Order Comment: Speci men Type: ARTERIAL BLOOD SPECIMENOrdering Facility: [facility] Address: [address] [place] [address] Performed By: #### A LLBG ####[place]IR[facility]ORYST[facility] [id number] [facility]OS[facility] RESPIRATORY [id number] [address] [address] O2 THERAPY NC = Nasal Cannula Normal [facility] Comment on above: Order Comment: Speci men Type: ARTERIAL BLOOD SPECIMENOrdering Facility: [facility] Address: [address] [place] [address] Performed By: #### A LLBG ####[place] [id number] [place] [address] RESPIRATORY [id number] [address] [address] Oxygen (Bld) [Partial pressure] 70 mm Hg Low 85-95 [facility] Comment on above: Order Comment: Speci men Type: ARTERIAL BLOOD SPECIMENOrdering Facility: [facility] Address: [address] [place] [id number] Performed By: #### A LLBG ####[place] [id number] [place] [address] RESPIRATORY [id number] [address] [address] Oxygen adjusted to patient's actual temperature (Bld) [Partial pressure] Normal [facility] Comment on above: Order Comment: Speci men Type: ARTERIAL BLOOD SPECIMENOrdering Facility: [facility] Address: [address] [place] [address] Performed By: #### A LLBG ####[place] [facility]ORYST[facility] [id number] [facility]OS[facility] RESPIRATORY [id number] [address] [address] Oxyhemoglobin (BldA) [Mass fraction] 94 % Low 95-98 [facility] Comment on above: Order Comment: Speci men Type: ARTERIAL BLOOD SPECIMENOrdering Facility: [facility] Address: [address] [place] [address] Performed By: #### A LLBG ####[place] RESPIRATORY[id number] [facility]OSP[facility] RESPIRATORY [id number] [address] [address] pH (Bld) 7.39 [pH] Normal 7.35-7.45 [facility] Comment on above: Order Comment: Speci men Type: ARTERIAL BLOOD SPECIMENOrdering Facility: [facility] Address: [address] [place] [address] Performed By: #### A LLBG ####[facility] RESPIRATORYIA [id number] [facility]OSP[facility] RESPIRATORY [id number] [address] [address] pH adjusted to patient's actual temperature (Bld) Normal [facility] Comment on above: Order Comment: Speci men Type: ARTERIAL BLOOD SPECIMENOrdering Facility: [facility] Address: [address] [place], [place] [address] Performed By: #### A LLBG ####[place] RESPIRATORYIA [id number] [facility] RESPIRATORY [id number] [address] [address] Potassium [Moles/Vol] 6.0 mmol/L High 3.5-5.0 [facility] Comment on above: Order Comment: Speci men Type: ARTERIAL BLOOD SPECIMENOrdering Facility: [facility] Address: [address] [place] [address] Performed By: #### A LLBG ####[facility] RESPIRATORYIA [id number] [facility]OSP[facility] RESPIRATORY [id number] [address] [address] Basic metabolic 2000 panelon 01-13-2025 Anion gap [Moles/Vol] 19 mmol/L High 8-15 [facility] Comment on above: Order Comment: Speci men Type: BLOOD SPECIMENOrdering Facility: [facility] Address: [address] [place] [address] Performed By: #### 2 4321-2 ####[facility] LABORATORYCLIA [id number] [place], [place] [address] [place] [address] [place] Calcium [Mass/Vol] 10.8 mg/dL High 8.5-10.2 [facility] Comment on above: Order Comment: Speci men Type: BLOOD SPECIMENOrdering Facility: [facility] Address: [address] [place] [address] Performed By: #### 2 4321-2 ####[facility] LABORATORYCLIA [id number] [address] [place] [facility] Chloride [Moles/Vol] 89 mmol/L Low 98-107 [facility] Comment on above: Order Comment: Speci men Type: BLOOD SPECIMENOrdering Facility: [facility] Address: [address] [place] [address] Performed By: #### 2 4321-2 ####[facility] LABORATORYCLIA [id number] [address] [place] CO2 [Moles/Vol] 22 mmol/L Normal 22-30 [facility] Comment on above: Order Comment: [facility] Type: BLOOD SPECIMENOrdering Facility: [facility] Address: [address] [place] [address] Performed By: #### 2 4321-2 ####[facility] LABORATORYCLIA [id number] [address] Creatinine [Mass/Vol] 5.26 mg/dL High 0.73-1.22 [facility] Comment on above: Order Comment: [employer] Type: BLOOD SPECIMENOrdering Facility: [facility] Address: [address] [place] [address] Performed By: #### 2 4321-2 ####[facility] LABORATORYCLIA [id number] [address] Creatinine and Glomerular filtration rate.predicted panel (S/P/Bld) 11 mL/min/1.73m??? Low >=60 [facility] Comment on above: Order Comment: [facility] Type: BLOOD SPECIMENOrdering Facility: [facility] Address: [address] [place] [address] Result Comment: Caryl mated Glomerular Filtration Rate [...] Performed By: #### 2 4321-2 ####AD[facility] LABORATORYCLIA [id number] [place] [address] [place] Glucose [Mass/Vol] 38 mg/dL Critically low 74-99 [facility] Comment on above: Order Comment: Speci men Type: BLOOD SPECIMENOrdering Facility: [facility] Address: [address] [place] [address] Result Comment: The [place] Diabetes Association (ADA) provides guidance for cutoff [...] Standards of Medical Care in Diabetes 2016, [place] [employer]. Diabetes Care. 2016.39(Suppl 1). Performed By: #### 2 4321-2 ####[facility] LABORATORYCLIA [id number] [place] [address] [place] Potassium [Moles/Vol] 6.0 mmol/L High 3.7-5.1 [facility] Comment on above: Order Comment: Speci men Type: BLOOD SPECIMENOrdering Facility: [facility] Address: [address] [place] [address] Performed By: #### 2 4321-2 ####ADAM LABORATORYCLIA [id number] [place] [id number] [place] Sodium [Moles/Vol] 130 mmol/L Low 136-144 [facility] Comment on above: Order Comment: Speci men Type: BLOOD SPECIMENOrdering Facility: [facility] Address: [address] [place] [address] Performed By: #### 2 4321-2 ####[facility] LABORATORYCLIA [id number] [place] [address] [place] Urea nitrogen [Mass/Vol] 53 mg/dL High 9-24 [facility] Comment on above: Order Comment: Speci men Type: BLOOD SPECIMENOrdering Facility: [facility] Address: [address] [place] [address] Performed By: #### 2 4321-2 ####[facility] LABORATORYCLIA [id number] [address] CBC panel Auto (Bld)on 01-13 Erythrocyte distribution width (RBC) [Ratio] 16.0 % High 11.5-15.0 [facility] Comment on above: Order Comment: Speci men Type: BLOOD SPECIMENOrdering Facility: [facility] Address: [address] [place] [address] Performed By: #### 5 8410-2 ####[facility] LABORATORYCLIA [id number] [address] Hematocrit (Bld) [Volume fraction] 41.0 % Normal 39.0-51.0 [facility] Comment on above: Order Comment: Speci men Type: BLOOD SPECIMENOrdering Facility: [facility] Address: [address] [place] [address] Performed By: #### 5 8410-2 ####[facility] LABORATORYCLIA [id number] [address] Hemoglobin (Bld) [Mass/Vol] 13.7 g/dL Normal 13.0-17.0 [facility] Comment on above: Order Comment: Speci men Type: BLOOD SPECIMENOrdering Facility: [facility] Address: [address] [place] [address] Performed By: #### 5 8410-2 ####[facility] LABORATORYCLIA [id number] [address] MCH (RBC) [Entitic mass] 31.7 pg Normal 26.0-34.0 [facility] Comment on above: Order Comment: Speci men Type: BLOOD SPECIMENOrdering Facility: [facility] Address: [address] [place] [address] Performed By: #### 5 8410-2 ####[facility] LABORATORYCLIA [id number] [address] MCHC (RBC) [Mass/Vol] 33.4 g/dL Normal 30.5-36.0 [facility] Comment on above: Order Comment: Speci men Type: BLOOD SPECIMENOrdering Facility: [facility] Address: [address] [place] [address] Performed By: #### 5 8410-2 ####ADAM LABORATORYCLIA [id number] [place] [address] [place] MCV (RBC) [Entitic vol] 94.9 fL Normal 80.0-100.0 [facility] Comment on above: Order Comment: Speci men Type: BLOOD SPECIMENOrdering Facility: [facility] Address: [address] [place] [address] Performed By: #### 5 8410-2 ####[facility] LABORATORYCLIA [id number] [place] [address] [place] Nucleated RBC (Bld) [#/Vol] 10*3/uL Normal <0.01 [facility] Comment on above: Order Comment: Speci men Type: BLOOD SPECIMENOrdering Facility: [facility] Address: [address] [place] [address] Performed By: #### 5 8410-2 ####AD[facility] LABORATORYCLIA [id number] [place] [address] [place] Platelet mean volume (Bld) [Entitic vol] 9.8 fL Normal 9.0-12.7 [facility] Comment on above: Order Comment: Speci men Type: BLOOD SPECIMENOrdering Facility: [facility] Address: [address] [place] [address] Performed By: #### 5 8410-2 ####[facility] LABORATORYCLIA [id number] [place] [address] [place] Platelets (Bld) [#/Vol] 160 10*3/uL Normal 150-400 [facility] Comment on above: Order Comment: Speci men Type: BLOOD SPECIMENOrdering Facility: [facility] Address: [address] [place] [address] Performed By: #### 5 8410-2 ####[facility] LABORATORYCLIA [id number] [place] [address] [place] RBC (Bld) [#/Vol] 4.32 10*6/uL Normal 4.20-6.00 [facility] Comment on above: Order Comment: Speci men Type: BLOOD SPECIMENOrdering Facility: [facility] Address: [address] [place], [place] [address] Performed By: #### 5 8410-2 ####[facility] LABORATORYCLIA [id number] [place] [id number] [facility] [place] WBC (Bld) [#/Vol] 11.01 10*3/uL High 3.70-11.00 [facility] Comment on above: Order Comment: Speci men Type: BLOOD SPECIMENOrdering Facility: [facility] Address: [address] [place] [address] Performed By: #### 5 8410-2 ####[facility] LABORATORYCLIA [id number] [address] CONSULT PROGon 01-13-2025 CONSULT PROG HNO ID: [id number] Author: JOSAFAT LOREDO MD Service: Nephrology Author [...] midodrine 5 mg 3 times a day [facility] CT CHEST WO IVCONon 01-14-20 CT CHEST WO IVCON * * *Final Report* * * DATE OF EXAM: Jan 13 2025 5:22PM [facility] 0541 - CT CHEST WO IVCON / [...] pulmonary infection cannot be excluded. Global cardiomegaly. Drawing Checker: CARMELA Transcribe Date/Time: Jan 14 2025 8:14A Dictated by : AILEEN MARTINES MD This examination was interpreted and the report reviewed and electronically signed by: AILEEN MARTINES MD on Jan 14 2025 8:31AM EST [id number] Normal [facility] ECG COMPLETEon 01-13-2025 ECG COMPLETE Ventricular Rate : 7 4 BPM Atrial Rate : 74 BPM P-R Interval : 96 ms QRS Duration : 128 ms Q-T Interval : 424 ms QTC Calculation(Bazett) : 470 ms Calculated P [place] : -42 degrees Calculated R [place] : -78 degrees Calculated T [place] : 115 degrees ATRIAL FIBRILLATION RIGHT BUNDLE BRANCH BLOCK LEFT ANTERIOR FASCICULAR BLOCK ABNORMAL ECG WHEN COMPARED WITH ECG OF 13-Jan-2025 07:44, NO SIGNIFICANT CHANGE WAS FOUND Confirmed by RUTH ANN CLAYTON MD ([id number]) on 01/14/2025 1:37:19 PM NAME : MAURI QUINONES PID : [id number] : 1955 Gender : Male Race : ORD : [id number] Procedure Date : Jan 13 2025 10:17:51 Edit Date : Jan 14 2025 13:37:20 Diagnosis: ATRIAL FIBRILLATION RIGHT BUNDLE BRANCH BLOCK LEFT ANTERIOR FASCICULAR BLOCK ABNORMAL ECG WHEN COMPARED WITH ECG OF 13-Jan-2025 07:44, NO SIGNIFICANT CHANGE WAS FOUND Confirmed by RUTH ANN CLAYTON MD ([id number]) on 01/14/2025 1:37:19 PM Test Reason : Tachycardia Location : 4 : 2S 225 Overread By : RUTH ANN CLAYTON MD Edited By : RUTH ANN CLAYTON MD Referred By : MARTÍN ROMANO Acquired by : Sydnee Salcedo [facility] ECHOon 01-13-2025 Echocardiography Echocardiography Rep ort: Transthoracic Echo [facility] Date of service: 01/13/2025 12:54:56 PM Ordering physician: EVARISTO DAS Indication: Sustained atrial fibrillation Technologist: Macey Pichardo [facility] Interpreting physician: Mauri Wynn MD [...] Electronically signed by Mauri Wynn MD on (more content not included)... Normal [facility] EKGon 01-13-2025 Electrocardiogram Ventricular Rate : 9 7 BPM Atrial Rate : 97 BPM P-R Interval : 80 ms QRS Duration : 162 ms Q-T Interval : 358 ms QTC Calculation(Bazett) : 454 ms Calculated P [place] : -29 degrees Calculated R [place] : 246 degrees Calculated T [place] : 11 degrees ATRIAL FIBRILLATION RIGHT BUNDLE BRANCH BLOCK INFERIOR INFARCT , AGE UNDETERMINED ABNORMAL ECG NO PREVIOUS ECGS AVAILABLE Confirmed by FORREST RASMUSSEN, [facility] ([id number]) on 01/14/2025 1:35:20 PM NAME : MAURI QUINONES PID : [id number] : 1955 Gender : Male Race : ORD : Procedure Date : Jan 13 2025 07:44:50 Edit Date : Jan 14 2025 13:35:27 Diagnosis: ATRIAL FIBRILLATION RIGHT BUNDLE BRANCH BLOCK INFERIOR INFARCT , AGE UNDETERMINED ABNORMAL ECG NO PREVIOUS ECGS AVAILABLE Confirmed by RUTH ANN CLAYTON MD ([id number]) on 01/14/2025 1:35:20 PM Test Reason : Location : 3 : 0256 Overread By : RUTH ANN CLAYTON MD Edited By : RUTH ANN CLAYTON MD Referred By : MARTÍN ROMANO Acquired by : mmLisa [facility] HIGH SENSITIVITY TROPONIN To n 01-13-2025 Troponin T.cardiac High sensitivity method [Mass/Vol] 288 ng/L High <12 [facility] Comment on above: Order Comment: Kelsi daria Type: BLOOD SPECIMENOrdering Facility: [facility] Address: [address] [place] [address] Performed By: #### H STNT ####[facility] LABORATORYCLIA [id number] [address] Troponin T.cardiac High sensitivity method [Mass/Vol] 260 ng/L High <12 [facility] Comment on above: Order Comment: Kelsi huff Type: BLOOD SPECIMENOrdering Facility: [facility] Address: [address] [place] [address] Performed By: #### H STNT ####[facility] LABORATORYCLIA [id number] [address] MEDICAL EMERon 01-13-2025 MEDICAL NENA HNO ID: [id number] Author: IVETT DUEÑAS APRN.THEATRICAL PERFORMER Service: Critical Care Author Type: Nurse Practitioner Type: Chg in Clinical Condition Filed: 01/13/2025 17:40 Note Text: MEDICAL EMERGENCY TEAM CALL TYPE: RAPID RESPONSE 0719 CODE STATUS: Code Status: Prior BACKGROUND Mauri Quinones is a 69 year old male with a past medical history described below who was admitted to [facility] on 01/07/2025 for management of Fractured pelvis. REASON FOR CALL Glucose 39 ASSESSMENT Rapid response called for severe symptomatic hypoglycemia without adequate IV access. On initial evaluation the patient is lethargic, diaphoretic, clammy, and pale. AM labs resulted 0656 at 38. Accucheck 37, he had one periperial IV that was nonfunctioning unable to give IV D10. IM Glucoagon administered into R deltoid. AMET RN able to obtain IV access and [...] T-wave inversions in precordial leads. Spoke with international organizer Cardiology Daniela Lewis, not concerned by EKG, [...] PAST MEDICAL HISTORY Diagnosis Date Ankylosing spondylitis ([facility]) CAD (coronary artery disease) Cellulitis Chronic combined systolic and diastolic CHF (congestive heart failure) ([facility]) 03/24/2019 CKD (chronic kidney disease) stage 3, GFR 30-59 ml/min ([facility]) 03/24/2019 Constipation Diabetes ([facility]) ESRD (end stage renal disease) ([facility]) Gout History of coronary artery bypass graft [...] valve calcifi NSTEMI (non-ST elevated myocardial infarction) ([facility]) 03/12/2017 [facility] admit Osteoarthritis PAST SURGICAL HISTORY Procedure [...] cool and moist. (more content not included)... Normal [facility] NURSING PROGon 01-13-2025 NURSING PROG HNO ID: [id number] Author: SAMEER PIERRE RN Service: Nursing Author Type: Registered Nurse Type: Nursing Progress Note Filed: 01/13/2025 12:29 Note Text: Hemodialysis tx completed x 3.5 hours. Pt tolerated tx well. Fluid removed 3,000ml using crit-line monitor to B-profile and BV change max of -8.8%. Vitals stable post tx. Verbal report to RN Floyd Mishra post tx. [facility] NURSING PROG HNO ID: [id number] Author: FLOYD MISHRA, RN Service: Nursing Author Type: Registered Nurse Type: Nursing Progress Note Filed: 01/13/2025 19:10 Note Text: Event(s) / Intervention Note: PATIENT NAME: Mauri Quinones Patient Location: [place] [address] Room: [place] [address] The patient was observed having the following [...] new ACHS and 0200 blood glucose orders. [facility] NUTRITIONon 01-13-2025 NUTRITION HNO ID: [id number] Author: SAL BRAMBILA RD Service: Nutrition Therapy [...] day LOS 69 y/o male Fractured pelvis (HCC) [S32.9XXA] Left hip pain [M25.552] PAST MEDICAL HISTORY Diagnosis Date Ankylosing spondylitis ([facility]) CAD (coronary artery disease) Cellulitis Chronic combined systolic and diastolic CHF (congestive heart failure) ([facility]) 03/24/2019 CKD (chronic kidney disease) stage 3, GFR 30-59 ml/min ([facility]) 03/24/2019 Constipation Diabetes ([facility]) ESRD (end stage renal disease) ([facility]) Gout History of coronary artery bypass graft [...] valve calcifi NSTEMI (non-ST elevated myocardial infarction) ([facility]) 03/12/2017 [facility] admit Osteoarthritis Weight Weight 01/11/2025 165 [...] or equal to 5 days 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 Diet Orders (From admission, [...] DATE: January 13, 2025 TIME: 10:53 AM [facility] THERAPY NTon 01-13-2025 THERAPY NT HNO ID: [id number] Author: ANAYA WHITE CCC-DIETARY DIRECTOR Service: Speech/Swallow Author Type: Speech Language Pathologist Type: Therapy (PT/OT/Speech/Resp) Filed: 01/13/2025 15:51 Note Text: -- Summary: Dysphagia Tx -- Speech Therapy Treatment SERVICE DATE: 01/13/2025 SERVICE TIME: 1528 to 1546 ROOM: [place] [address] IMPRESSION Swallow Deficits Identified / Suspected: Oral [...] Dysphagia, oral phase TREATMENT INTERVENTIONS Dysphagia Therapy (30626) Skilled Treatment Time (minutes): 18 TRAINING AND [...] next visit: Dysphagia Management SIGNATURE: Anaya Malik [facility] [place]-DIETARY DIRECTOR PATIENT NAME: Mauri Quinones DATE: January 13, 2025 TIME: 3:50 PM [facility] XR CHEST 1V FRONTAL PORTon 0 01-13-2025 [...] sternotomy and CABG. IMPRESSION: Overall findings unchanged. Drawing Checker: CARMELA Transcribe Date/Time: Jan 13 2025 8:04A Dictated by : AILEEN MARTINES MD This examination was interpreted and the report reviewed and electronically signed by: AILEEN MARTINES MD on Jan 13 2025 8:06AM EST [id number] Normal [facility] Basic metabolic 2000 panelon 01-12-2025 Anion gap [Moles/Vol] 12 mmol/L Normal 8-15 [facility] Comment on above: Order Comment: Speci men Type: BLOOD SPECIMENOrdering Facility: [facility] Address: [address] [place] [address] Performed By: #### 2 4321-2 ####ELROSA LABORATORYCLIA [id number] [place] [address] [place] Calcium [Mass/Vol] 10.2 mg/dL Normal 8.5-10.2 [facility] Comment on above: Order Comment: Speci men Type: BLOOD SPECIMENOrdering Facility: [facility] Address: [address] [place] [address] Performed By: #### 2 4321-2 ####ELROSA LABORATORYCLIA [id number] [place] [address] [place] Chloride [Moles/Vol] 93 mmol/L Low 98-107 [facility] Comment on above: Order Comment: Speci men Type: BLOOD SPECIMENOrdering Facility: [facility] Address: [address] [place] [address] Performed By: #### 2 4321-2 ####ADAM LABORATORYCLIA [id number] [place] [id number] [place] CO2 [Moles/Vol] 28 mmol/L Normal 22-30 [facility] Comment on above: Order Comment: Speci men Type: BLOOD SPECIMENOrdering Facility: [facility] Address: [address] [place] [address] Performed By: #### 2 4321-2 ####ADAM LABORATORYCLIA [id number] [place] [id number] [place] Creatinine [Mass/Vol] 4.52 mg/dL High 0.73-1.22 [facility] Comment on above: Order Comment: Speci men Type: BLOOD SPECIMENOrdering Facility: [facility] Address: [address] [place] [address] Performed By: #### 2 4321-2 ####ADAM LABORATORYCLIA [id number] [place] [id number] [facility] Creatinine and Glomerular filtration rate.predicted panel (S/P/Bld) 13 mL/min/1.73m??? Low >=60 [facility] Comment on above: Order Comment: Kelsi huff Type: BLOOD SPECIMENOrdering Facility: [facility] Address: [address] [place] [address] Result Comment: Caryl mated Glomerular Filtration Rate [...] Performed By: #### 2 4321-2 ####ADAM LABORATORYCLIA [id number] [place] [id number] [place] Glucose [Mass/Vol] 69 mg/dL Low 74-99 [facility] Comment on above: Order Comment: Kelsi huff Type: BLOOD SPECIMENOrdering Facility: [facility] Address: [address] [place] [address] Result Comment: The [place] Diabetes [employer] (ADA) provides guidance for cutoff [...] Standards of Medical Care in Diabetes 2016, [place] [employer]. Diabetes Care. 2016.39(Suppl 1). Performed By: #### 2 4321-2 ####ADAM LABORATORYCLIA [id number] [place] [address] Potassium [Moles/Vol] 5.0 mmol/L Normal 3.7-5.1 [facility] Comment on above: Order Comment: Speci men Type: BLOOD SPECIMENOrdering Facility: [facility] Address: [address] [place] [address] Performed By: #### 2 4321-2 ####ADAM LABORATORYCLIA [id number] [address] Sodium [Moles/Vol] 133 mmol/L Low 136-144 [facility] Comment on above: Order Comment: Speci men Type: BLOOD SPECIMENOrdering Facility: [facility] Address: [address] [place] [address] Performed By: #### 2 4321-2 ####ADAM LABORATORYCLIA [id number] [address] Urea nitrogen [Mass/Vol] 43 mg/dL High 9-24 [facility] Comment on above: Order Comment: Speci men Type: BLOOD SPECIMENOrdering Facility: [facility] Address: [address] [place] [address] Performed By: #### 2 4321-2 ####ADAM LABORATORYCLIA [id number] [address] [place] CBC panel Auto (Bld)on 01-12 Erythrocyte distribution width (RBC) [Ratio] 16.0 % High 11.5-15.0 [facility] Comment on above: Order Comment: Speci men Type: BLOOD SPECIMENOrdering Facility: [facility] Address: [address] [place] [address] Performed By: #### 5 8410-2 ####ADAM LABORATORYCLIA [id number] [address] Hematocrit (Bld) [Volume fraction] 35.3 % Low 39.0-51.0 [facility] Comment on above: Order Comment: Speci men Type: BLOOD SPECIMENOrdering Facility: [facility] Address: [address] [place] [address] Performed By: #### 5 8410-2 ####ADAM LABORATORYCLIA [id number] [address] Hemoglobin (Bld) [Mass/Vol] 11.6 g/dL Low 13.0-17.0 [facility] Comment on above: Order Comment: Speci men Type: BLOOD SPECIMENOrdering Facility: [facility] Address: [address] [place] [address] Performed By: #### 5 8410-2 ####ADAM LABORATORYCLIA [id number] [address] [place] [facility] MCH (RBC) [Entitic mass] 31.6 pg Normal 26.0-34.0 [facility] Comment on above: Order Comment: Speci men Type: BLOOD SPECIMENOrdering Facility: [facility] Address: [address] [place] [address] Performed By: #### 5 8410-2 ####ADAM LABORATORYCLIA [id number] [address] MCHC (RBC) [Mass/Vol] 32.9 g/dL Normal 30.5-36.0 [facility] Comment on above: Order Comment: Speci men Type: BLOOD SPECIMENOrdering Facility: [facility] Address: [address] [place] [address] Performed By: #### 5 8410-2 ####ADAM LABORATORYCLIA [id number] [address] MCV (RBC) [Entitic vol] 96.2 fL Normal 80.0-100.0 [facility] Comment on above: Order Comment: Speci men Type: BLOOD SPECIMENOrdering Facility: [facility] Address: [address] [place] [address] Performed By: #### 5 8410-2 ####ADAM LABORATORYCLIA [id number] [address] Nucleated RBC (Bld) [#/Vol] 10*3/uL Normal <0.01 [facility] Comment on above: Order Comment: Speci men Type: BLOOD SPECIMENOrdering Facility: [facility] Address: [address] [place] [address] Performed By: #### 5 8410-2 ####ADAM LABORATORYCLIA [id number] [place] [address] [place] Platelet mean volume (Bld) [Entitic vol] 9.6 fL Normal 9.0-12.7 [facility] Comment on above: Order Comment: Speci men Type: BLOOD SPECIMENOrdering Facility: [facility] Address: [address] [place] [address] Performed By: #### 5 8410-2 ####ADAM LABORATORYCLIA [id number] [place] [address] [place] Platelets (Bld) [#/Vol] 137 10*3/uL Low 150-400 [facility] Comment on above: Order Comment: Speci men Type: BLOOD SPECIMENOrdering Facility: [facility] Address: [address] [place] [address] Performed By: #### 5 8410-2 ####ADAM LABORATORYCLIA [id number] [place] [address] [place] RBC (Bld) [#/Vol] 3.67 10*6/uL Low 4.20-6.00 [facility] Comment on above: Order Comment: Speci men Type: BLOOD SPECIMENOrdering Facility: [facility] Address: [address] [place] [address] Performed By: #### 5 8410-2 ####ADAM LABORATORYCLIA [id number] [place] [id number] [place] WBC (Bld) [#/Vol] 6.05 10*3/uL Normal 3.70-11.00 [facility] Comment on above: Order Comment: Speci men Type: BLOOD SPECIMENOrdering Facility: [facility] Address: [address] [place] [address] Performed By: #### 5 8410-2 ####ADAM LABORATORYCLIA [id number] [address] CONSULT PROGon 01-12-2025 CONSULT PROG HNO ID: [id number] Author: JOSAFAT LOREDO MD Service: Nephrology Author [...] midodrine 5 mg 3 times a day [facility] THERAPY NTon 01-12-2025 THERAPY NT HNO ID: [id number] Author: SONA HILL PT Service: Physical Therapy Author Type: Mercantile Reporter Type: Therapy (PT/OT/Speech/Resp) Filed: 01/13/2025 15:40 Note Text: -- Attestation signed by Sona Hill PT at 01/13/2025 3:40 PM I reviewed and agree with the documentation corresponding to this therapy visit. SIGNATURE: Sona Hill PT DATE: January 13, 2025 TIME: 3:40 PM -- -- Summary: PT Treat -- Physical Therapy Treatment Summary SERVICE DATE: 01/12/2025 SERVICE TIME: 1345 to 1420 ROOM: [id number] PT 6 Clicks Score: 10 DISCHARGE RECOMMENDATIONS [...] DIAGNOSIS Reduced mobility-other TREATMENT INTERVENTIONS Therapeutic Activity (80152) Timed Code Treatment (minutes): 35 Skilled Treatment Time (minutes): 35 Therapeutic Activity (36613) Treatment Minutes: 35 $ Therapeutic Activity (93167) Billed Units: 2 units TRAINING AND EDUCATION [...] Lines, Tubes (more content not included)... Normal [facility] Basic metabolic 2000 panelon 01-11-2025 Anion gap [Moles/Vol] 11 mmol/L Normal 8-15 [facility] Comment on above: Order Comment: Speci men Type: BLOOD SPECIMENOrdering Facility: [facility] Address: [address] [place] [address] Performed By: #### 2 4321-2 ####ELROSA LABORATORYCLIA [id number] [place] [address] [place] Calcium [Mass/Vol] 10.1 mg/dL Normal 8.5-10.2 [facility] Comment on above: Order Comment: Speci men Type: BLOOD SPECIMENOrdering Facility: [facility] Address: [address] [place] [address] Performed By: #### 2 4321-2 ####ELROSA LABORATORYCLIA [id number] [place] [address] [place] Chloride [Moles/Vol] 93 mmol/L Low 98-107 [facility] Comment on above: Order Comment: Kelsi daria Type: BLOOD SPECIMENOrdering Facility: [facility] Address: [address] [place] [address] Performed By: #### 2 4321-2 ####ADAM LABORATORYCLIA [id number] [place] [address] [place] CO2 [Moles/Vol] 28 mmol/L Normal 22-30 [facility] Comment on above: Order Comment: Speci men Type: BLOOD SPECIMENOrdering Facility: [facility] Address: [address] [place] [address] Performed By: #### 2 4321-2 ####ADAM LABORATORYCLIA [id number] [address] [place] Creatinine [Mass/Vol] 3.43 mg/dL High 0.73-1.22 [facility] Comment on above: Order Comment: Samanthai men Type: BLOOD SPECIMENOrdering Facility: [facility] Address: [address] [place] [address] Performed By: #### 2 4321-2 ####ADAM LABORATORYCLIA [id number] [address] Creatinine and Glomerular filtration rate.predicted panel (S/P/Bld) 19 mL/min/1.73m??? Low >=60 [facility] Comment on above: Order Comment: Kelsi daria Type: BLOOD SPECIMENOrdering Facility: [facility] Address: [address] [place] [address] Result Comment: Caryl mated Glomerular Filtration Rate [...] Performed By: #### 2 4321-2 ####ADAM LABORATORYCLIA [id number] [place] [id number] [place] Glucose [Mass/Vol] 106 mg/dL High 74-99 [facility] Comment on above: Order Comment: Kelsi huff Type: BLOOD SPECIMENOrdering Facility: [facility] Address: [address] [place] [address] Result Comment: The [place] [employer] (ADA) provides guidance for cutoff [...] Standards of Medical Care in Diabetes 2016, [place] [employer]. Diabetes Care. 2016.39(Suppl 1). Performed By: #### 2 4321-2 ####ADAM LABORATORYCLIA [id number] [place] [address] [place] Potassium [Moles/Vol] 4.6 mmol/L Normal 3.7-5.1 [facility] Comment on above: Order Comment: Kelsi huff Type: BLOOD SPECIMENOrdering Facility: [facility] Address: [address] [place] [address] Performed By: #### 2 4321-2 ####ADMA LABORATORYCLIA [id number] [place] [id number] [place] Sodium [Moles/Vol] 132 mmol/L Low 136-144 [facility] Comment on above: Order Comment: Kelsi men Type: BLOOD SPECIMENOrdering Facility: [facility] Address: [address] [place] [address] Performed By: #### 2 4321-2 ####ADAM LABORATORYCLIA [id number] [place] [address] [place] Urea nitrogen [Mass/Vol] 31 mg/dL High 9-24 [facility] Comment on above: Order Comment: Kelsi huff Type: BLOOD SPECIMENOrdering Facility: [facility] Address: [address] [place] [address] Performed By: #### 2 4321-2 ####ADAM LABORATORYCLIA [id number] [address] CBC panel Auto (Bld)on 01-11 Erythrocyte distribution width (RBC) [Ratio] 15.9 % High 11.5-15.0 [facility] Comment on above: Order Comment: Speci men Type: BLOOD SPECIMENOrdering Facility: [facility] Address: [address] [place] [address] Performed By: #### 5 8410-2 ####ADAM LABORATORYCLIA [id number] [address] Hematocrit (Bld) [Volume fraction] 35.4 % Low 39.0-51.0 [facility] Comment on above: Order Comment: Speci men Type: BLOOD SPECIMENOrdering Facility: [facility] Address: [address] [place] [address] Performed By: #### 5 8410-2 ####ADAM LABORATORYCLIA [id number] [address] Hemoglobin (Bld) [Mass/Vol] 11.4 g/dL Low 13.0-17.0 [facility] Comment on above: Order Comment: Speci men Type: BLOOD SPECIMENOrdering Facility: [facility] Address: [address] [place] [address] Performed By: #### 5 8410-2 ####ADAM LABORATORYCLIA [id number] [address] MCH (RBC) [Entitic mass] 31.4 pg Normal 26.0-34.0 [facility] Comment on above: Order Comment: Speci men Type: BLOOD SPECIMENOrdering Facility: [facility] Address: [address] [place] [address] Performed By: #### 5 8410-2 ####ADAM LABORATORYCLIA [id number] [address] MCHC (RBC) [Mass/Vol] 32.2 g/dL Normal 30.5-36.0 [facility] Comment on above: Order Comment: Speci men Type: BLOOD SPECIMENOrdering Facility: [facility] Address: [address] [place] [address] Performed By: #### 5 8410-2 ####ADAM LABORATORYCLIA [id number] [address] MCV (RBC) [Entitic vol] 97.5 fL Normal 80.0-100.0 [facility] Comment on above: Order Comment: Speci men Type: BLOOD SPECIMENOrdering Facility: [facility] Address: [address] [place] [address] Performed By: #### 5 8410-2 ####ADAM LABORATORYCLIA [id number] [address] Nucleated RBC (Bld) [#/Vol] 10*3/uL Normal <0.01 [facility] Comment on above: Order Comment: Speci men Type: BLOOD SPECIMENOrdering Facility: [facility] Address: [address] [place] [address] Performed By: #### 5 8410-2 ####ADAM LABORATORYCLIA [id number] [address] Platelet mean volume (Bld) [Entitic vol] 10.0 fL Normal 9.0-12.7 [facility] Comment on above: Order Comment: Speci men Type: BLOOD SPECIMENOrdering Facility: [facility] Address: [address] [place] [address] Performed By: #### 5 8410-2 ####ADAM LABORATORYCLIA [id number] [address] Platelets (Bld) [#/Vol] 143 10*3/uL Low 150-400 [facility] Comment on above: Order Comment: Speci men Type: BLOOD SPECIMENOrdering Facility: [facility] Address: [address] [place] [address] Result Comment: No c lot detected. Performed By: #### 5 8410-2 ####ADAM LABORATORYCLIA [id number] [address] RBC (Bld) [#/Vol] 3.63 10*6/uL Low 4.20-6.00 [facility] Comment on above: Order Comment: Speci men Type: BLOOD SPECIMENOrdering Facility: [facility] Address: [address] [place] [id number] Performed By: #### 5 8410-2 ####ADAM LABORATORYCLIA [id number] [address] WBC (Bld) [#/Vol] 5.49 10*3/uL Normal 3.70-11.00 [facility] Comment on above: Order Comment: Speci men Type: BLOOD SPECIMENOrdering Facility: [facility] Address: [address] [place] [id number] Performed By: #### 5 8410-2 ####ADAM LABORATORYCLIA [id number] [address] CONSULT PROGon 01-11-2025 CONSULT PROG HNO ID: [id number] Author: MARLENE HOLLEY MD Service: Nephrology Author [...] midodrine 5 mg 3 times a day [facility] 01-10-2025 [facility] HNO ID: [id number] Author: GARRISON HOLLY RT(Nader) Service: Radiology Author Type: Technologist Type: Allied Health Filed: 01/10/2025 15:23 Note Text: RADIOLOGY SERVICE PROGRESS NOTE DATE OF SERVICE: January 10, 2025 TIME OF SERVICE: 1520 EVENT: EXAM/PROCEDURE NOT COMPLETED - Patient refused exam/procedure. and Patient became claustrophobic, reaction was: Severe. ADDITIONAL EVENT DETAILS: ATTEMPTED TO SCAN PT. SOON COIL WAS PLACED OVER FACE, PT BECAME SEVERELY CLAUSTRO AND REFUSED THE MRI. SULTANA KNOWLES ON 2N MADE AWARE AND SENT PT BACK TO FLOOR. SIGNATURE: RT Tonya(R) PATIENT NAME: Mauri Quinones DATE: January 10, 2025 TIME: 3:22 PM PAGER/CONTACT #: Normal [facility] Basic metabolic 2000 panelon 01-10-2025 Anion gap [Moles/Vol] 16 mmol/L High 8-15 [facility] Comment on above: Order Comment: Speci men Type: BLOOD SPECIMENOrdering Facility: [facility] Address: [address] [place] [address] Performed By: #### 2 4325-3, 38803-6, ####ELROSA LABORATORYCLIA [id number] [place] [address] [place] Calcium [Mass/Vol] 10.4 mg/dL High 8.5-10.2 [facility] Comment on above: Order Comment: Speci men Type: BLOOD SPECIMENOrdering Facility: [facility] Address: [address] [place] [address] Performed By: #### 2 4325-3, 47210-2, ####ADAM LABORATORYCLIA [id number] [place] [address] [place] Chloride [Moles/Vol] 92 mmol/L Low 98-107 [facility] Comment on above: Order Comment: Speci men Type: BLOOD SPECIMENOrdering Facility: [facility] Address: [address] [place] [address] Performed By: #### 2 4325-3, 17814-0, ####ADAM LABORATORYCLIA [id number] [place] [address] [place] CO2 [Moles/Vol] 26 mmol/L Normal 22-30 [facility] Comment on above: Order Comment: Speci men Type: BLOOD SPECIMENOrdering Facility: [facility] Address: [address] [place] [address] Performed By: #### 2 4325-3, 53826-7, ####ADAM LABORATORYCLIA [id number] [place] [address] [place] Creatinine [Mass/Vol] 4.82 mg/dL High 0.73-1.22 [facility] Comment on above: Order Comment: Speci men Type: BLOOD SPECIMENOrdering Facility: [facility] Address: [address] [place] [address] Performed By: #### 2 4325-3, 64732-8, 03192-3 ####ADAM LABORATORYCLIA [id number] [address] Creatinine and Glomerular filtration rate.predicted panel (S/P/Bld) 12 mL/min/1.73m??? Low >=60 [facility] Comment on above: Order Comment: Kelsi huff Type: BLOOD SPECIMENOrdering Facility: [facility] Address: [address] [place] [address] Result Comment: Caryl mated Glomerular Filtration Rate [...] actual GFR. Performed By: #### 2 4325-3, 54346-1, 76886-5 ####ADAM LABORATORYCLIA [id number] [place] [address] [place] Glucose [Mass/Vol] 94 mg/dL Normal 74-99 [facility] Comment on above: Order Comment: Kelsi huff Type: BLOOD SPECIMENOrdering Facility: [facility] Address: [address] [place] [address] Result Comment: The [place] Diabetes [employer] (ADA) provides guidance for cutoff [...] Standards of Medical Care in Diabetes 2016, [place] [employer]. Diabetes Care. 2016.39(Suppl 1). Performed By: #### 2 4325-3, 49685-9, ####ADAM LABORATORYCLIA [id number] [place] [address] [place] Potassium [Moles/Vol] 4.6 mmol/L Normal 3.7-5.1 [facility] Comment on above: Order Comment: Speci men Type: BLOOD SPECIMENOrdering Facility: [facility] Address: [address] [place] [address] Performed By: #### 2 4325-3, 45072-0, ####ADAM LABORATORYCLIA [id number] [place] [address] [place] Sodium [Moles/Vol] 134 mmol/L Low 136-144 [facility] Comment on above: Order Comment: Speci men Type: BLOOD SPECIMENOrdering Facility: [facility] Address: [address] [place] [address] Performed By: #### 2 4325-3, 71992-3, ####ADAM LABORATORYCLIA [id number] [place] [address] [place] Urea nitrogen [Mass/Vol] 50 mg/dL High 9-24 [facility] Comment on above: Order Comment: Speci men Type: BLOOD SPECIMENOrdering Facility: [facility] Address: [address] [place] [address] Performed By: #### 2 4325-3, 47388-5, ####ADAM LABORATORYCLIA [id number] [place] [address] [place] CBC panel Auto (Bld)on 01-10 Erythrocyte distribution width (RBC) [Ratio] 15.6 % High 11.5-15.0 [facility] Comment on above: Order Comment: Speci men Type: BLOOD SPECIMENOrdering Facility: [facility] Address: [address] [place] [address] Performed By: #### 5 8410-2 ####ADAM LABORATORYCLIA [id number] [address] [place] Hematocrit (Bld) [Volume fraction] 37.2 % Low 39.0-51.0 [facility] Comment on above: Order Comment: Speci men Type: BLOOD SPECIMENOrdering Facility: [facility] Address: [address] [place] [address] Performed By: #### 5 8410-2 ####ADAM LABORATORYCLIA [id number] [address] Hemoglobin (Bld) [Mass/Vol] 12.0 g/dL Low 13.0-17.0 [facility] Comment on above: Order Comment: Speci men Type: BLOOD SPECIMENOrdering Facility: [facility] Address: [address] [place] [address] Performed By: #### 5 8410-2 ####ADAM LABORATORYCLIA [id number] [address] MCH (RBC) [Entitic mass] 31.5 pg Normal 26.0-34.0 [facility] Comment on above: Order Comment: Speci men Type: BLOOD SPECIMENOrdering Facility: [facility] Address: [address] [place] [address] Performed By: #### 5 8410-2 ####ADAM LABORATORYCLIA [id number] [address] MCHC (RBC) [Mass/Vol] 32.3 g/dL Normal 30.5-36.0 [facility] Comment on above: Order Comment: Speci men Type: BLOOD SPECIMENOrdering Facility: [facility] Address: [address] [place] [address] Performed By: #### 5 8410-2 ####ADAM LABORATORYCLIA [id number] [address] MCV (RBC) [Entitic vol] 97.6 fL Normal 80.0-100.0 [facility] Comment on above: Order Comment: Speci men Type: BLOOD SPECIMENOrdering Facility: [facility] Address: [address] [place] [address] Performed By: #### 5 8410-2 ####ADAM LABORATORYCLIA [id number] [address] Nucleated RBC (Bld) [#/Vol] 10*3/uL Normal <0.01 [facility] Comment on above: Order Comment: Speci men Type: BLOOD SPECIMENOrdering Facility: [facility] Address: [address] [place] [address] Performed By: #### 5 8410-2 ####[facility] LABORATORYCLIA [id number] [place] [address] [place] Platelet mean volume (Bld) [Entitic vol] 10.5 fL Normal 9.0-12.7 [facility] Comment on above: Order Comment: Speci men Type: BLOOD SPECIMENOrdering Facility: [facility] Address: [address] [place] [address] Performed By: #### 5 8410-2 ####AD[facility] LABORATORYCLIA [id number] [place] [address] [place] Platelets (Bld) [#/Vol] 145 10*3/uL Low 150-400 [facility] Comment on above: Order Comment: Speci men Type: BLOOD SPECIMENOrdering Facility: [facility] Address: [address] [place] [address] Result Comment: No c lot detected. Performed By: #### 5 8410-2 ####AD[facility] LABORATORYCLIA [id number] [place] [address] [place] RBC (Bld) [#/Vol] 3.81 10*6/uL Low 4.20-6.00 [facility] Comment on above: Order Comment: Speci men Type: BLOOD SPECIMENOrdering Facility: [facility] Address: [address] [place] [address] Performed By: #### 5 8410-2 ####AD[facility] LABORATORYCLIA [id number] [place] [address] [place] WBC (Bld) [#/Vol] 6.24 10*3/uL Normal 3.70-11.00 [facility] Comment on above: Order Comment: Speci men Type: BLOOD SPECIMENOrdering Facility: [facility] Address: [address] [place] [address] Performed By: #### 5 8410-2 ####ADAM LABORATORYCLIA [id number] [place] [address] [place] CONSULT PROGon 01-10-2025 CONSULT PROG HNO ID: [id number] Author: MARLENE HOLLEY MD Service: Nephrology Author [...] labs and imaging results. Recent Labs 01/10/25 0601/09/25 0610 01/08/25 0444 WBC 6.24 5.68 6.19 HB 12.0* 11.7* 11.4* HCT 37.2* 36.7* 36.0* PLT 145* 132* 122* NA 134* 133* 134* K 4.6 4.9 5.3* CHLOR 92* 91* 91* CO2 26 29 29 BUN 50* 34* 54* CREAT 4.82* 3.61* 4.87* GLUC 94 57* 100* CA 10.4* 10.0 9.9 MG 2.3 2.3 -- Recent Labs 01/10/25 0601/09/25 0610 TPROT 7.3 6.9 ALB 3.5* 3.8* [...] 5 mg 3 times a day Normal [facility] Cortjohn Amaya-Jarocho 01-11-20 Cortisol [Mass/Vol] 12.3 ug/dL Normal 4.8-19.5 [facility] Comment on above: Order Comment: Speci men Type: BLOOD SPECIMENOrdering Facility: [facility] Address: [address] [place] [address] Result Comment: Prov ided reference range is from 6-10 AM sample collection time. Cortisol Reference Range: 6-10 AM = 4.8-19.5 ug/dL, 4-8 PM = 2.5-11.9 ug/dL Performed By: #### 2 143-6 ####[facility] LABCLIA [id number] [place] [address] [place] HBV surface Ag Ser Qlon 12-25 HBV surface Ag Ql (S) Negative Normal Negative [facility] Comment on above: Order Comment: Kelsi huff Type: BLOOD SPECIMENOrdering Facility: [facility] Address: [address] [place] [address] Performed By: #### 5 195-3 ####[facility] LABCLIA [id number] [place] [address] [place] Hepatic function 2000 panelo n 01-10-2025 Albumin [Mass/Vol] 3.5 g/dL Low 3.9-4.9 [facility] Comment on above: Order Comment: Kelsi huff Type: BLOOD SPECIMENOrdering Facility: [facility] Address: [address] [place] [address] Performed By: #### 2 4325-3, 39568-3, 13193-6 ####[facility] LABORATORYCLIA [id number] [address] [place] [facility] ALP [Catalytic activity/Vol] 202 U/L High 38-113 [facility] Comment on above: Order Comment: Speci men Type: BLOOD SPECIMENOrdering Facility: [facility] Address: [address] [address] Performed By: #### 2 4325-3, 25659-7, ####ADAM LABORATORYCLIA [id number] [place] [address] [place] ALT [Catalytic activity/Vol] 12 U/L Normal 10-54 [facility] Comment on above: Order Comment: Speci men Type: BLOOD SPECIMENOrdering Facility: [facility] Address: [address] [place] [address] Performed By: #### 2 4325-3, 38470-5, ####AD[facility] LABORATORYCLIA [id number] [address] AST [Catalytic activity/Vol] 25 U/L Normal 14-40 [facility] Comment on above: Order Comment: Speci men Type: BLOOD SPECIMENOrdering Facility: [facility] Address: [address] [place] [address] Performed By: #### 2 4325-3, 28917-9, ####ADAM LABORATORYCLIA [id number] [address] [place] Bilirubin [Mass/Vol] 0.9 mg/dL Normal 0.2-1.3 [facility] Comment on above: Order Comment: Speci men Type: BLOOD SPECIMENOrdering Facility: [facility] Address: [address] [place] [address] Performed By: #### 2 4325-3, 81826-1, ####AD[facility] LABORATORYCLIA [id number] [address] Bilirubin.conjugated [Mass/Vol] 0.5 mg/dL High <0.3 [facility] Comment on above: Order Comment: Speci men Type: BLOOD SPECIMENOrdering Facility: [facility] Address: [address] [place] [address] Performed By: #### 2 4325-3, 37245-8, 83953-5 ####AD[facility] LABORATORYCLIA [id number] [place] [address] [facility] Protein [Mass/Vol] 7.3 g/dL Normal 6.3-8.0 [facility] Comment on above: Order Comment: Speci men Type: BLOOD SPECIMENOrdering Facility: [facility] Address: [address] [place] [address] Performed By: #### 2 4325-3, 70535-9, ####AD[facility] LABORATORYCLIA [id number] [place] [address] [facility] [place] Magnesium SerPl-mCncon 01-10 Magnesium [Mass/Vol] 2.3 mg/dL Normal 1.7-2.3 [facility] Comment on above: Order Comment: Speci men Type: BLOOD SPECIMENOrdering Facility: [facility] Address: [address] [place] [address] Performed By: #### 2 4325-3, 79892-4, ####ELROS[facility] LABORATORYCLIA [id number] [place] [address] [facility] ARTERIAL BLOOD GASESon 01-09 Base excess Calc (Bld) [Moles/Vol] 3 mmol/L High 0-2 [facility] Comment on above: Order Comment: Speci men Type: ARTERIAL BLOOD SPECIMENOrdering Facility: [facility] Address: [address] [place] [address] Performed By: #### A LLBG ####[facility] RESPIRATORYCLIA [id number] [facility] RES[facility]IRATORY [id number] [place] [address] Carboxyhemoglobin (BldA) [Mass fraction] 1.6 % Normal 0.0-2.0 [facility] Comment on above: Order Comment: Speci men Type: ARTERIAL BLOOD SPECIMENOrdering Facility: [facility] Address: [address] [place] [address] Result Comment: Carb oxyhemoglobin Reference Range for Smokers: 2.0-8.0% Performed By: #### A LLBG ####ADAM RESPIRATORYIA [id number] HOSPITAL RESPIRATORY [id number] [address] [address] CO2 (Bld) [Partial pressure] 55 mm Hg High 36-46 [facility] Comment on above: Order Comment: Speci men Type: ARTERIAL BLOOD SPECIMENOrdering Facility: [facility] Address: [address] [place] [address] Performed By: #### A LLBG ####[facility]ATORYST[facility] [id number] [facility]OS[facility] RES[facility]AT[facility] [id number] [address] [address] CO2 adjusted to patient's actual temperature (Bld) [Partial pressure] Normal [facility] Comment on above: Order Comment: Speci men Type: ARTERIAL BLOOD SPECIMENOrdering Facility: [facility] Address: [address] [place] [address] Performed By: #### A LLBG ####[facility] [id number] HOSP[facility] RESPIRATORY [id number] [address] [address] HCO3 (Bld) [Moles/Vol] 29 mmol/L High 22-26 [facility] Comment on above: Order Comment: Speci men Type: ARTERIAL BLOOD SPECIMENOrdering Facility: [facility] Address: [address] [place] [address] Performed By: #### A LLBG ####[facility] [id number] [facility] RESPIRATORY [id number] [address] [address] Hemoglobin (Bld) [Mass/Vol] 12.3 g/dL Low 13.0-17.0 [facility] Comment on above: Order Comment: Speci men Type: ARTERIAL BLOOD SPECIMENOrdering Facility: [facility] Address: [address] [place] [address] Performed By: #### A LLBG ####[facility] [id number] [facility]OS[facility] RESPIRATORY [id number] [address] [address] Lactate [Moles/Vol] 1.1 mmol/L Normal 0.5-2.2 [facility] Comment on above: Order Comment: Speci men Type: ARTERIAL BLOOD SPECIMENOrdering Facility: [facility] Address: [address] [place] [address] Performed By: #### A LLBG ####AD[facility] RESPIRATORYIA [id number] [facility]OSPITAL RES[facility]IRATORY [id number] [address] [address] LITERS 2 Liters/min Normal [facility] Comment on above: Order Comment: Speci men Type: ARTERIAL BLOOD SPECIMENOrdering Facility: [facility] Address: [address] [place] [id number] Performed By: #### A LLBG ####[facility] RESPIRATORYIA [id number] [facility]OSP[facility] RES[facility]IRATORY [id number] [address] [address] Methemoglobin (Bld) [Mass fraction] % Normal 0.0-1.5 [facility] Comment on above: Order Comment: Speci men Type: ARTERIAL BLOOD SPECIMENOrdering Facility: [facility] Address: [address] [place] [address] Performed By: #### A LLBG ####[facility]PIRATORYST. [facility] [id number] HOSP[facility] RESPIRATORY [id number] [address] [address] O2 THERAPY NC = Nasal Cannula Normal [facility] Comment on above: Order Comment: Speci men Type: ARTERIAL BLOOD SPECIMENOrdering Facility: [facility] Address: [address] [place] [address] Performed By: #### A LLBG ####[facility] RESPIRATORYMATHEW VILLE [id number] [facility]OSP[facility] RESPIRATORY [id number] [address] [address] Oxygen (Bld) [Partial pressure] 103 mm Hg High 85-95 [facility] Comment on above: Order Comment: Speci men Type: ARTERIAL BLOOD SPECIMENOrdering Facility: [facility] Address: [address] [place] [id number] Performed By: #### A LLBG ####[facility] RESPIRATORY[id number] [facility]OSP[facility] RESPIRATORY [id number] [address] [address] Oxygen adjusted to patient's actual temperature (Bld) [Partial pressure] Normal [facility] Comment on above: Order Comment: Speci men Type: ARTERIAL BLOOD SPECIMENOrdering Facility: [facility] Address: [address] [place] [id number] Performed By: #### A LLBG ####ELROSA RESPIRATORYIA [id number] [facility]OSP[facility] RESPIRATORY [id number] [address] [address] Oxyhemoglobin (BldA) [Mass fraction] 97 % Normal 95-98 [facility] Comment on above: Order Comment: Speci men Type: ARTERIAL BLOOD SPECIMENOrdering Facility: [facility] Address: [address] [place] [address] Performed By: #### A LLBG ####[facility]PIRATORYST. [facility] [id number] [facility]OS[facility] RESPIRATORY [id number] [address] pH (Bld) 7.34 [pH] Low 7.35-7.45 [facility] Comment on above: Order Comment: Speci men Type: ARTERIAL BLOOD SPECIMENOrdering Facility: [facility] Address: [address] [place] [address] Performed By: #### A LLBG ####[facility] RESPIRATORYMATHEW VILLE [id number] [facility]OSP[facility] RESPIRATORY [id number] [address] [address] pH adjusted to patient's actual temperature (Bld) Normal [facility] Comment on above: Order Comment: Speci men Type: ARTERIAL BLOOD SPECIMENOrdering Facility: [facility] Address: [address] [place] [address] Performed By: #### A LLBG ####[facility]ORYST[facility] [id number] [facility]OSP[facility] RESPIRATORY [id number] [address] [address] Potassium [Moles/Vol] 4.6 mmol/L Normal 3.5-5.0 [facility] Comment on above: Order Comment: Speci men Type: ARTERIAL BLOOD SPECIMENOrdering Facility: [facility] Address: [address] [place] [address] Performed By: #### A LLBG ####[facility]ORY[facility] [id number] [facility]OS[facility] RESPIRATORY [id number] [address] [address] Bacteria Ur Culton Bacteria identified Cx Nom (U) CULTURE, URINE: No growth (<100 CFU/ml) Normal [facility] Comment on above: Performed By: #### 6 30-4 ####[facility] LABCLIA [id number] NATALIE B[place] SPR[place]DESJaron [address] [address] [place] Basic metabolic 2000 panelon 01-09-2025 Anion gap [Moles/Vol] 13 mmol/L Normal 8-15 [facility] Comment on above: Order Comment: Speci men Type: BLOOD SPECIMENOrdering Facility: [facility] Address: [address] [address] Performed By: #### 1 9123-9, 2276-4, 92594-3, 26559-7 ####ELROS[facility] LABORATORYCLIA [id number] [place] [address] [place] Calcium [Mass/Vol] 10.0 mg/dL Normal 8.5-10.2 [facility] Comment on above: Order Comment: Speci men Type: BLOOD SPECIMENOrdering Facility: [facility] Address: [address] [address] Performed By: #### 1 9123-9, 6-4, 07732-4, 00962-5 ####EL[facility] LABORATORYCLIA [id number] [place] [address] [place] Chloride [Moles/Vol] 91 mmol/L Low 98-107 [facility] Comment on above: Order Comment: Speci men Type: BLOOD SPECIMENOrdering Facility: [facility] Address: [address] [place] [address] Performed By: #### 1 9123-9, 6-4, 01301-6, 01636-7 ####EL[facility] LABORATORYCLIA [id number] [place] [address] [place] CO2 [Moles/Vol] 29 mmol/L Normal 22-30 [facility] Comment on above: Order Comment: Speci men Type: BLOOD SPECIMENOrdering Facility: [facility] Address: [address] [address] Performed By: #### 1 9123-9, 2276-4, 31116-5, 32895-9 ####EL[facility] LABORATORYCLIA [id number] [place] [id number] [place] Creatinine [Mass/Vol] 3.61 mg/dL High 0.73-1.22 [facility] Comment on above: Order Comment: Specmarcellus huff Type: BLOOD SPECIMENOrdering Facility: [facility] Address: [address] [place] [address] Performed By: #### 1 9123-9, 2276-4, 99791-4, 72501-6 ####ELROSA LABORATORYCLIA [id number] [place] [address] [place] [facility] Creatinine and Glomerular filtration rate.predicted panel (S/P/Bld) 18 mL/min/1.73m??? Low >=60 [facility] Comment on above: Order Comment: [facility] Type: BLOOD SPECIMENOrdering Facility: [facility] Address: [address] [place] [address] Result Comment: Caryl mated Glomerular Filtration Rate [...] GFR. Performed By: #### 1 9123-9, 2276-4, 68497-5, 50717-8 ####ELROSA LABORATORYCLIA [id number] [place] [id number] [place] Glucose [Mass/Vol] 57 mg/dL Low 74-99 [facility] Comment on above: Order Comment: [facility] Type: BLOOD SPECIMENOrdering Facility: [facility] Address: [address] [place] [address] Result Comment: The [place] Diabetes Association (ADA) provides guidance for cutoff [...] Standards of Medical Care in Diabetes 2016, [place] [employer]. Diabetes Care. 2016.39(Suppl 1). Performed By: #### 1 9123-9, 6-4, 75834-0, 66850-3 ####ADAM LABORATORYCLIA [id number] [place] [address] [place] Potassium [Moles/Vol] 4.9 mmol/L Normal 3.7-5.1 [facility] Comment on above: Order Comment: Kelsi huff Type: BLOOD SPECIMENOrdering Facility: [facility] Address: [address] [place] [address] Performed By: #### 1 9123-9, 6-4, 29714-4, 24991-1 ####ADAM LABORATORYCLIA [id number] [place] [address] [place] Sodium [Moles/Vol] 133 mmol/L Low 136-144 [facility] Comment on above: Order Comment: Kelsi huff Type: BLOOD SPECIMENOrdering Facility: [facility] Address: [address] [place] [address] Performed By: #### 1 9123-9, 6-4, 72160-9, 82084-4 ####ADAM LABORATORYCLIA [id number] [place] [id number] [place] Urea nitrogen [Mass/Vol] 34 mg/dL High 9-24 [facility] Comment on above: Order Comment: Kelsi huff Type: BLOOD SPECIMENOrdering Facility: [facility] Address: [address] [place] [address] Performed By: #### 1 9123-9, 6-4, 50966-8, 88298-2 ####ADAM LABORATORYCLIA [id number] [place] [address] [place] CBC panel Auto (Bld)on 05-16 -2025 Erythrocyte distribution width (RBC) [Ratio] 15.6 % High 11.5-15.0 [facility] Comment on above: Order Comment: Speci men Type: BLOOD SPECIMENOrdering Facility: [facility] Address: [address] [place] [address] Performed By: #### 5 8410-2 ####ADAM LABORATORYCLIA [id number] [address] [place] Hematocrit (Bld) [Volume fraction] 36.7 % Low 39.0-51.0 [facility] Comment on above: Order Comment: Speci men Type: BLOOD SPECIMENOrdering Facility: [facility] Address: [address] [place] [address] Performed By: #### 5 8410-2 ####ADAM LABORATORYCLIA [id number] [address] [place] Hemoglobin (Bld) [Mass/Vol] 11.7 g/dL Low 13.0-17.0 [facility] Comment on above: Order Comment: Speci men Type: BLOOD SPECIMENOrdering Facility: [facility] Address: [address] [place] [address] Performed By: #### 5 8410-2 ####ADAM LABORATORYCLIA [id number] [address] [place] MCH (RBC) [Entitic mass] 31.5 pg Normal 26.0-34.0 [facility] Comment on above: Order Comment: Speci men Type: BLOOD SPECIMENOrdering Facility: [facility] Address: [address] [place] [address] Performed By: #### 5 8410-2 ####ADAM LABORATORYCLIA [id number] [address] [place] MCHC (RBC) [Mass/Vol] 31.9 g/dL Normal 30.5-36.0 [facility] Comment on above: Order Comment: Speci men Type: BLOOD SPECIMENOrdering Facility: [facility] Address: [address] [place] [address] Performed By: #### 5 8410-2 ####ADAM LABORATORYCLIA [id number] [address] [place] MCV (RBC) [Entitic vol] 98.9 fL Normal 80.0-100.0 [facility] Comment on above: Order Comment: Speci men Type: BLOOD SPECIMENOrdering Facility: [facility] Address: [address] [place] [address] Performed By: #### 5 8410-2 ####ADAM LABORATORYCLIA [id number] [place] [address] [place] Nucleated RBC (Bld) [#/Vol] 10*3/uL Normal <0.01 [facility] Comment on above: Order Comment: Speci men Type: BLOOD SPECIMENOrdering Facility: [facility] Address: [address] [place] [address] Performed By: #### 5 8410-2 ####ADAM LABORATORYCLIA [id number] [address] [place] Platelet mean volume (Bld) [Entitic vol] 10.3 fL Normal 9.0-12.7 [facility] Comment on above: Order Comment: Speci men Type: BLOOD SPECIMENOrdering Facility: [facility] Address: [address] [place] [address] Performed By: #### 5 8410-2 ####AD[facility] LABORATORYCLIA [id number] [address] [place] Platelets (Bld) [#/Vol] 132 10*3/uL Low 150-400 [facility] Comment on above: Order Comment: Speci men Type: BLOOD SPECIMENOrdering Facility: [facility] Address: [address] [place] [address] Result Comment: No c lot detected. Performed By: #### 5 8410-2 ####ADAM LABORATORYCLIA [id number] [address] [place] RBC (Bld) [#/Vol] 3.71 10*6/uL Low 4.20-6.00 [facility] Comment on above: Order Comment: Speci men Type: BLOOD SPECIMENOrdering Facility: [facility] Address: [address] [place] [address] Performed By: #### 5 8410-2 ####ELROS[facility] LABORATORYCLIA [id number] [place] [address] [place] WBC (Bld) [#/Vol] 5.68 10*3/uL Normal 3.70-11.00 [facility] Comment on above: Order Comment: Speci men Type: BLOOD SPECIMENOrdering Facility: [facility] Address: [address] [place] [id number] Performed By: #### 5 8410-2 ####ELROSA LABORATORYCLIA [id number] [place] [address] [facility] CNPNon 01-09-20[facility] MAURI QUINONES ([id number]) 1955 [facility] Date Time Provider Department 01/09/25 [facility] During your visit today, we recorded the following information about you: Rebecca Moe LPN 01/09/2025 9:27 AM Signed Tracie from [facility] calling patient was transferred to [facility] with fractured pelvis. Plan to discharge to [...] tablet by mouth every morning. - Insulin Ridge, Disposable, (BD ULTRA-FINE GOLDY PEN NEEDLE) 32 [...] Shook, PharmD Problem List As Of Date 01/09/2025 [...] initial *05/07/2022 (more content not included)... Normal [facility] CONSULT PROGon 01-09-2025 CONSULT PROG HNO ID: [id number] Author: JOSAFAT LOREDO MD Service: Nephrology Author [...] 5 mg 3 times a day Normal [facility] Ferritin SerPl-mCncon 2024 Ferritin [Mass/Vol] 2365.0 ng/mL High 30.3-565.7 [facility] Comment on above: Order Comment: Kelsi huff Type: BLOOD SPECIMENOrdering Facility: [facility] Address: [address] [place] [address] Performed By: #### 1 9123-9, 6-4, 82336-4, 28747-6 ####ELROSA LABORATORYCLIA [id number] [place] [address] [place] Hepatic function 2000 panelo n 01-09-2025 Albumin [Mass/Vol] 3.8 g/dL Low 3.9-4.9 [facility] Comment on above: Order Comment: [facility] Type: BLOOD SPECIMENOrdering Facility: [facility] Address: [address] [place] [address] Performed By: #### 1 9123-9, 6-4, 94898-4, 43478-2 ####ELROSA LABORATORYCLIA [id number] [place] [address] [place] ALP [Catalytic activity/Vol] 200 U/L High 38-113 [facility] Comment on above: Order Comment: Kelsi huff Type: BLOOD SPECIMENOrdering Facility: [facility] Address: [address] [place] [address] Performed By: #### 1 9123-9, 6-4, 48010-0, 29564-2 ####ADAM LABORATORYCLIA [id number] [place] [address] [place] ALT [Catalytic activity/Vol] 11 U/L Normal 10-54 [facility] Comment on above: Order Comment: Speci men Type: BLOOD SPECIMENOrdering Facility: [facility] Address: [address] [place] [address] Performed By: #### 1 9123-9, 6-4, 82138-7, 19800-8 ####AD[facility] LABORATORYCLIA [id number] [place] [address] [place] AST [Catalytic activity/Vol] 24 U/L Normal 14-40 [facility] Comment on above: Order Comment: Speci men Type: BLOOD SPECIMENOrdering Facility: [facility] Address: [address] [place] [address] Performed By: #### 1 9123-9, 6-4, 87357-9, 47356-6 ####ADAM LABORATORYCLIA [id number] [address] STATES OF [facility] Bilirubin [Mass/Vol] 0.9 mg/dL Normal 0.2-1.3 [facility] Comment on above: Order Comment: Speci men Type: BLOOD SPECIMENOrdering Facility: [facility] Address: [address] [place] [address] Performed By: #### 1 9123-9, 6-4, 86483-5, 31520-4 ####AD[facility] LABORATORYCLIA [id number] [address] [place] Bilirubin.conjugated [Mass/Vol] 0.5 mg/dL High <0.3 [facility] Comment on above: Order Comment: Speci men Type: BLOOD SPECIMENOrdering Facility: [facility] Address: [address] [place] [address] Performed By: #### 1 9123-9, 6-4, 21899-4, 54343-5 ####ADAM LABORATORYCLIA [id number] [address] [place] Protein [Mass/Vol] 6.9 g/dL Normal 6.3-8.0 [facility] Comment on above: Order Comment: Kelsi daria Type: BLOOD SPECIMENOrdering Facility: [facility] Address: [address] [place], [place] [address] [id number] Performed By: #### 1 9123-9, 2276-4, 75705-2, 47365-0 ####ELROSA LABORATORYCLIA [id number] [place] [id number] [facility] Magnesium SerPl-mCncon 01-09 Magnesium [Mass/Vol] 2.3 mg/dL Normal 1.7-2.3 [facility] Comment on above: Order Comment: Kelsi daria Type: BLOOD SPECIMENOrdering Facility: [facility] Address: [address] [place], [place] [address] [phone] Performed By: #### 1 9123-9, 2276-4, 21305-7, 59484-1 ####ELROSA LABORATORYCLIA [id number] [address] THERAPY NTon 01-09-2025 THERAPY NT HNO ID: [id number] Author: ANAYA [facility] [place]-DIETARY DIRECTOR Service: Speech/Swallow Author Type: Speech Language Pathologist Type: Therapy (PT/OT/Speech/Resp) Filed: 01/09/2025 13:09 Note Text: -- Summary: Clinical Swallowing Evaluation -- Speech Therapy Clinical Swallow Evaluation SERVICE DATE: 01/09/2025 SERVICE TIME: 1229 to 1256 ROOM: [id number]-0056-1 IMPRESSION Swallow Deficits Identified / Suspected: Oral [...] oral phase TREATMENT INTERVENTIONS Clinical Swallow Evaluation (50910), Dysphagia Therapy (86730) Skilled Treatment Time (minutes): 27 TRAINING AND [...] Eat/Drink Without R (more content not included)... [facility] THERAPY NT HNO ID: [id number] Author: CARLOS EDUARDO HELTON OT/Farhana Service: ? Author Type: Occupational Therapist Type: Therapy (PT/OT/Speech/Resp) Filed: 01/09/2025 10:05 Note Text: -- Summary: OT Evaluation -- Occupational Therapy Evaluation Summary SERVICE DATE: 01/09/2025 SERVICE TIME: 915 to 938 ROOM: [id number] OT 6 Clicks Score: 14 DISCHARGE RECOMMENDATIONS [...] baseline, appears to be a questionable historian, [place], functioning below baseline with ADLs and mobility/tranfers, [...] and Awareness TREATMENT INTERVENTIONS Evaluation, Therapeutic Activity (12007) Timed Code Treatment (minutes): 8 Skilled Treatment Time (minutes): 23 TRAINING AND EDUCATION PROVIDED Activity Adaptation/Compensatory Strategies, Adaptive Equipment/DME, Bed Mobility, Benefits of In-Hospital Mobility, Cognitive Skills, Command Following, Discharge Planning, Expected Functional Level, Functional Mobility Involving ADLs, Grooming Tasks, Insight into Deficits, Orientation, Memory/Attention, Pain Management, Positioning, Precautions/Restrictions, Role of Occupational Therapy, Safety/Judgment, Sitting Balance to Improve Mcdonough with ADLs/Self-Care, Standing Balance to Improve [place] with ADLs/Self-Care, Transfer - Sit to Stand, Upper Extremity Dressing THE (more content not included)... [facility] THERAPY NT HNO ID: [id number] Author: SONA HILL PT Service: Physical Therapy Author Type: Physical Therapist Type: Therapy (PT/OT/Speech/Resp) Filed: 01/09/2025 10:05 Note Text: -- Summary: PT evaluation -- Physical Therapy Evaluation Summary SERVICE DATE: 01/09/2025 SERVICE TIME: 843 to 926 ROOM: [id number] PT 6 Clicks Score: 9 Overlapped session [...] Reduced mobility-other TREATMENT INTERVENTIONS Evaluation, Therapeutic Activity (24291) Timed Code Treatment (minutes): 17 Skilled Treatment Time (minutes): 32 $ Evaluation-Low (04297) Billed Units: 1 unit Therapeutic Activity (52966) Treatment Minutes: 17 $ Therapeutic Activity (10404) Billed Units: 1 unit Range of Motion: [...] Impact o (more content not included)... Normal [facility] Urinalysis complete panel (U )on 01-09-2025 Bacteria LM.HPF (Urine sed) [#/Area] Moderate Abnormal None Seen [facility] Comment on above: Order Comment: Speci men Type: URINE SPECIMENOrdering Facility: [facility] Address: [address] [place] [address] Performed By: #### 2 4356-8 ####ADAM LABORATORYCLIA [id number] [address] Bilirubin Ql (U) Normal [facility] Comment on above: Order Comment: Speci men Type: URINE SPECIMENOrdering Facility: [facility] Address: [address] [place] [address] Result Comment: [place] r interference, unable to perform assay. Performed By: #### 2 4356-8 ####ADAM LABORATORYCLIA [id number] [address] Clarity (Unsp spec) Turbid Abnormal Clear [facility] Comment on above: Order Comment: Speci men Type: URINE SPECIMENOrdering Facility: [facility] Address: [address] [place] [address] Performed By: #### 2 4356-8 ####ADAM LABORATORYCLIA [id number] [address] Color (U) Brown Abnormal Yellow [facility] Comment on above: Order Comment: Speci men Type: URINE SPECIMENOrdering Facility: [facility] Address: [address] [place] [address] Performed By: #### 2 4356-8 ####ADAM LABORATORYCLIA [id number] [address] Glucose Test strip (U) [Mass/Vol] Normal [facility] Comment on above: Order Comment: Speci men Type: URINE SPECIMENOrdering Facility: [facility] Address: [address] [place] [address] Result Comment: [place] r interference, unable to perform assay. Performed By: #### 2 4356-8 ####ADAM LABORATORYCLIA [id number] [place] [id number] [facility] Hemoglobin Ql (U) [facility] Comment on above: Order Comment: Speci men Type: URINE SPECIMENOrdering Facility: [facility] Address: [address] [place] [address] Result Comment: [place] r interference, unable to perform assay. Performed By: #### 2 4356-8 ####ADAM LABORATORYCLIA [id number] [address] [place] Ketones Ql (U) [facility] Comment on above: Order Comment: Speci men Type: URINE SPECIMENOrdering Facility: [facility] Address: [address] [place] [address] Result Comment: [place] r interference, unable to perform assay. Performed By: #### 2 4356-8 ####ADAM LABORATORYCLIA [id number] [address] Leukocyte esterase Test strip Ql (U) [facility] Comment on above: Order Comment: Speci men Type: URINE SPECIMENOrdering Facility: [facility] Address: [address] [place] [address] Result Comment: [place] r interference, unable to perform assay. Performed By: #### 2 4356-8 ####ADAM LABORATORYCLIA [id number] [address] Nitrite Ql (U) [facility] Comment on above: Order Comment: Speci men Type: URINE SPECIMENOrdering Facility: [facility] Address: [address] [place] [address] Result Comment: [place] r interference, unable to perform assay. Performed By: #### 2 4356-8 ####ADAM LABORATORYCLIA [id number] [address] STATES OF [facility] pH (U) [facility] Comment on above: Order Comment: Speci men Type: URINE SPECIMENOrdering Facility: [facility] Address: [address] [place] [address] Result Comment: [place] r interference, unable to perform assay. Performed By: #### 2 4356-8 ####ADAM LABORATORYCLIA [id number] [address] Protein (U) [Mass/Vol] Normal [facility] Comment on above: Order Comment: Speci men Type: URINE SPECIMENOrdering Facility: [facility] Address: [address] [place] [address] Result Comment: [place] r interference, unable to perform assay. Performed By: #### 2 4356-8 ####ADAM LABORATORYCLIA [id number] [place] [address] [place] RBC LM.HPF (Urine sed) [#/Area] /[HPF] Abnormal 0-3 /HPF [facility] Comment on above: Order Comment: Speci men Type: URINE SPECIMENOrdering Facility: [facility] Address: [address] [place] [address] Performed By: #### 2 4356-8 ####ADAM LABORATORYCLIA [id number] [address] Specific gravity (U) [Rel density] Normal [facility] Comment on above: Order Comment: Speci men Type: URINE SPECIMENOrdering Facility: [facility] Address: [address] [place] [address] Result Comment: [place] r interference, unable to perform assay. Performed By: #### 2 4356-8 ####ADAM LABORATORYCLIA [id number] [address] [place] Urobilinogen Ql (U) Normal [facility] Comment on above: Order Comment: Speci men Type: URINE SPECIMENOrdering Facility: [facility] Address: [address] [place] [address] Result Comment: [place] r interference, unable to perform assay. Performed By: #### 2 4356-8 ####ADAM LABORATORYCLIA [id number] [place] [address] [place] WBC LM.HPF (Urine sed) [#/Area] 0-5 /HPF Normal 0-5 /HPF [facility] Comment on above: Order Comment: Speci men Type: URINE SPECIMENOrdering Facility: [facility] Address: [facility] [place] [address] Performed By: #### 2 4356-8 ####ELROSA LABORATORYCLIA [id number] [place] [address] [place] [address] [facility] HEALTHon 01-08-2025 [facility] HNO ID: [id number] Author: VANDANA SOTO RT(Nader) Service: Radiology Author Type: Technologist Type: Allied [...] PATIENT PRESENTS WITH AN IMPLANTABLE OR ATTACHED HOSPICE CARE CONSULTANT: No RADIOLOGY DEPARTMENT: General X-ray: Exam(s) Completed: Chest X-Ray PERIPHERAL IV DATA: Not applicable SIGNED BY: RT Rosenda(Nader) January 08, 2025 12:17 PM Normal [facility] HNO ID: [id number] Author: MONICA BENITEZ CT Service: Radiology Author [...] PATIENT PRESENTS WITH AN IMPLANTABLE OR ATTACHED HOSPICE CARE CONSULTANT: No RADIOLOGY DEPARTMENT: CT; Exam(s) Completed: Brain PERIPHERAL IV DATA: Not applicable SIGNED BY: WILLIAMS Mojica January 08, 2025 11:37 AM Normal [facility] ARTERIAL BLOOD GASESon 01-08 Base excess Calc (Bld) [Moles/Vol] 3 mmol/L High 0-2 [facility] Comment on above: Order Comment: Speci men Type: ARTERIAL BLOOD SPECIMENOrdering Facility: [facility] Address: [address] [place] [address] Performed By: #### A LLBG ####[place] [id number] [place] [address] RESPIRATORY [id number] [place] [address] Carboxyhemoglobin (BldA) [Mass fraction] 2.1 % High 0.0-2.0 [facility] Comment on above: Order Comment: Speci men Type: ARTERIAL BLOOD SPECIMENOrdering Facility: [facility] Address: [address] [place] [address] Result Comment: Carb oxyhemoglobin Reference Range for Smokers: 2.0-8.0% Performed By: #### A LLBG ####[id number] [place] [address] RESPIRATORY [id number] [address] [address] CO2 (Bld) [Partial pressure] 60 mm Hg High 36-46 [facility] Comment on above: Order Comment: Speci men Type: ARTERIAL BLOOD SPECIMENOrdering Facility: [facility] Address: [address] [place] [id number] Performed By: #### A LLBG ####[address] [place] [address] RESPIRATORY [id number] [address] HCO3 (Bld) [Moles/Vol] 31 mmol/L High 22-26 [facility] Comment on above: Order Comment: Speci men Type: ARTERIAL BLOOD SPECIMENOrdering Facility: [facility] Address: [address] [place] [address] Performed By: #### A LLBG ####[facility] [id number] [facility]OS[facility] RESPIRATORY [id number] [address] [address] Hemoglobin (Bld) [Mass/Vol] 12.3 g/dL Low 13.0-17.0 [facility] Comment on above: Order Comment: Speci men Type: ARTERIAL BLOOD SPECIMENOrdering Facility: [facility] Address: [address] [place] [address] Performed By: #### A LLBG ####[facility] [id number] [facility] RESPIRATORY [id number] [address] LITERS 2 Liters/min Normal [facility] Comment on above: Order Comment: Speci men Type: ARTERIAL BLOOD SPECIMENOrdering Facility: [facility] Address: [address] [place] [address] Performed By: #### A LLBG ####[facility] [id number] [facility] RESPIRATORY [id number] [address] [address] Oxygen (Bld) [Partial pressure] 66 mm Hg Low 85-95 [facility] Comment on above: Order Comment: Speci men Type: ARTERIAL BLOOD SPECIMENOrdering Facility: [facility] Address: [address] [place] [address] Performed By: #### A LLBG ####[id number] [place] [address] RESPIRATORY [id number] [address] Oxyhemoglobin (BldA) [Mass fraction] 90 % Low 95-98 [facility] Comment on above: Order Comment: Speci men Type: ARTERIAL BLOOD SPECIMENOrdering Facility: [facility] Address: [address] [place] [address] Performed By: #### A LLBG ####[place] [id number] [place] [address] RESPIRATORY [id number] [address] Potassium [Moles/Vol] 5.4 mmol/L High 3.5-5.0 [facility] Comment on above: Order Comment: Speci men Type: ARTERIAL BLOOD SPECIMENOrdering Facility: [facility] Address: [address] [place] [address] Performed By: #### A LLBG ####ELROSA RESPIRATORYCLIA [id number] [facility] RESPIRATORY [id number] [address] [address] Base excess Calc (Bld) [Moles/Vol] 2 mmol/L Normal 0-2 [facility] Comment on above: Order Comment: Speci men Type: ARTERIAL BLOOD SPECIMENOrdering Facility: [facility] Address: [address] [place] [address] Performed By: #### A LLBG ####ELROSA RESPIRATORYIA [id number] [facility] RESPIRATORY [id number] [address] [address] Carboxyhemoglobin (BldA) [Mass fraction] 2.3 % High 0.0-2.0 [facility] Comment on above: Order Comment: Speci men Type: ARTERIAL BLOOD SPECIMENOrdering Facility: [facility] Address: [address] [place] [address] Result Comment: Carb oxyhemoglobin Reference Range for Smokers: 2.0-8.0% Performed By: #### A LLBG ####ELROSA RESPIRATORYCLIA [id number] [facility] RESPIRATORY [id number] [address] [address] CO2 (Bld) [Partial pressure] 59 mm Hg High 36-46 [facility] Comment on above: Order Comment: Speci men Type: ARTERIAL BLOOD SPECIMENOrdering Facility: [facility] Address: [address] [place] [address] Performed By: #### A LLBG ####ELROSA RESPIRATORYIA [id number] [facility] RESPIRATORY [id number] [address] [address] CO2 adjusted to patient's actual temperature (Bld) [Partial pressure] Normal [facility] Comment on above: Order Comment: Speci men Type: ARTERIAL BLOOD SPECIMENOrdering Facility: [facility] Address: [address] [place] [id number] Performed By: #### A LLBG ####ELROSA RESPIRATORYCLIA [id number] [facility] RESPIRATORY [id number] [address] HCO3 (Bld) [Moles/Vol] 30 mmol/L High 22-26 [facility] Comment on above: Order Comment: Speci men Type: ARTERIAL BLOOD SPECIMENOrdering Facility: [facility] Address: [address] [place] [address] Performed By: #### A LLBG ####[facility]ORYST[facility] [id number] [facility] RESPIRATORY [id number] [address] [address] Hemoglobin (Bld) [Mass/Vol] 12.5 g/dL Low 13.0-17.0 [facility] Comment on above: Order Comment: Speci men Type: ARTERIAL BLOOD SPECIMENOrdering Facility: [facility] Address: [address] [place] [id number] Performed By: #### A LLBG ####ELROSA [facility]IRATORYST[facility] [id number] [facility] RESPIRATORY [id number] [address] [address] Lactate [Moles/Vol] 0.9 mmol/L Normal 0.5-2.2 [facility] Comment on above: Order Comment: Speci men Type: ARTERIAL BLOOD SPECIMENOrdering Facility: [facility] Address: [address] [place] [address] Performed By: #### A LLBG ####[facility] [id number] [facility] RESPIRATORY [id number] [address] [address] LITERS 1 Liters/min Normal [facility] Comment on above: Order Comment: Speci men Type: ARTERIAL BLOOD SPECIMENOrdering Facility: [facility] Address: [address] [place] [address] Performed By: #### A LLBG ####ELROSA [facility]ATORYST[facility] [id number] [facility] RESPIRATORY [id number] [address] [address] Methemoglobin (Bld) [Mass fraction] % Normal 0.0-1.5 [facility] Comment on above: Order Comment: Speci men Type: ARTERIAL BLOOD SPECIMENOrdering Facility: [facility] Address: [address] [place] [address] Performed By: #### A LLBG ####[facility] [id number] [facility]OS[facility] RESPIRATORY [id number] [address] [address] O2 THERAPY NC = Nasal Cannula Normal [facility] Comment on above: Order Comment: Speci men Type: ARTERIAL BLOOD SPECIMENOrdering Facility: [facility] Address: [address] [place] [address] Performed By: #### A LLBG ####[id number] [place] [address] RESPIRATORY [id number] [address] [address] Oxygen (Bld) [Partial pressure] 82 mm Hg Low 85-95 [facility] Comment on above: Order Comment: Speci men Type: ARTERIAL BLOOD SPECIMENOrdering Facility: [facility] Address: [address] [place] [address] Performed By: #### A LLBG ####[id number] [place] [address] RESPIRATORY [id number] [address] [address] Oxygen adjusted to patient's actual temperature (Bld) [Partial pressure] Normal [facility] Comment on above: Order Comment: Speci men Type: ARTERIAL BLOOD SPECIMENOrdering Facility: [facility] Address: [address] [place] [id number] Performed By: #### A LLBG ####[id number] [place] [address] RESPIRATORY [id number] [address] Oxyhemoglobin (BldA) [Mass fraction] 94 % Low 95-98 [facility] Comment on above: Order Comment: Speci men Type: ARTERIAL BLOOD SPECIMENOrdering Facility: [facility] Address: [address] [place] [address] Performed By: #### A LLBG ####[id number] [place] [address] RESPIRATORY [id number] [address] [address] pH (Bld) 7.31 [pH] Low 7.35-7.45 [facility] Comment on above: Order Comment: Speci men Type: ARTERIAL BLOOD SPECIMENOrdering Facility: [facility] Address: [address] [facility] [place] [id number] Performed By: #### A LLBG ####ELROSA RESPIRATORYCLIA [id number] [facility] RESPIRATORY [id number] [address] [address] pH adjusted to patient's actual temperature (Bld) Normal [facility] Comment on above: Order Comment: Speci men Type: ARTERIAL BLOOD SPECIMENOrdering Facility: [facility] Address: [address] [place] [id number] Performed By: #### A LLBG ####ELROSA RESPIRATORYCLIA [id number] [facility]OS[facility] RESPIRATORY [id number] [address] [address] Potassium [Moles/Vol] 5.3 mmol/L High 3.5-5.0 [facility] Comment on above: Order Comment: Speci men Type: ARTERIAL BLOOD SPECIMENOrdering Facility: [facility] Address: [address] [place] [address] Performed By: #### A LLBG ####ELROSA RESPIRATORYIA [id number] [facility]OSPITAL RESPIRATORY [id number] [address] [address] Ammonia Plas-sCncon 01-09-20 25 Ammonia (P) [Moles/Vol] 13 umol/L Low 16-60 [facility] Comment on above: Order Comment: Speci men Type: BLOOD SPECIMENOrdering Facility: [facility] Address: [address] [place] [id number] Performed By: #### 1 6362-6 ####ELROSA LABORATORYCLIA [id number] [place] [address] [place] Basic metabolic 2000 panelon 01-08-2025 Anion gap [Moles/Vol] 14 mmol/L Normal 8-15 [facility] Comment on above: Order Comment: Speci men Type: BLOOD SPECIMENOrdering Facility: [facility] Address: [address] [place] [address] [place] [address] Performed By: #### 2 4321-2 ####ELROSA LABORATORYCLIA [id number] [place] [address] [place] Calcium [Mass/Vol] 9.9 mg/dL Normal 8.5-10.2 [facility] Comment on above: Order Comment: Speci men Type: BLOOD SPECIMENOrdering Facility: [facility] Address: [address] [place] [address] Performed By: #### 2 4321-2 ####ADAM LABORATORYCLIA [id number] [place] [address] [place] Chloride [Moles/Vol] 91 mmol/L Low 98-107 [facility] Comment on above: Order Comment: Speci men Type: BLOOD SPECIMENOrdering Facility: [facility] Address: [address] [place] [address] Performed By: #### 2 4321-2 ####ADAM LABORATORYCLIA [id number] [place] [address] [place] CO2 [Moles/Vol] 29 mmol/L Normal 22-30 [facility] Comment on above: Order Comment: Speci men Type: BLOOD SPECIMENOrdering Facility: [facility] Address: [address] [place] [address] Performed By: #### 2 4321-2 ####ADAM LABORATORYCLIA [id number] [place] [address] [place] Creatinine [Mass/Vol] 4.87 mg/dL High 0.73-1.22 [facility] Comment on above: Order Comment: Speci men Type: BLOOD SPECIMENOrdering Facility: [facility] Address: [address] [place] [address] Performed By: #### 2 4321-2 ####ADAM LABORATORYCLIA [id number] [place] [address] [place] Creatinine and Glomerular filtration rate.predicted panel (S/P/Bld) 12 mL/min/1.73m??? Low >=60 [facility] Comment on above: Order Comment: Speci men Type: BLOOD SPECIMENOrdering Facility: [facility] Address: [address] [place] [address] Result Comment: Caryl mated Glomerular Filtration Rate [...] Performed By: #### 2 4321-2 ####ADAM LABORATORYCLIA [id number] [place] [address] [place] Glucose [Mass/Vol] 100 mg/dL High 74-99 [facility] Comment on above: Order Comment: Kelsi huff Type: BLOOD SPECIMENOrdering Facility: [facility] Address: [address] [place] [address] Result Comment: The [place] [employer] (ADA) provides guidance for cutoff [...] Standards of Medical Care in Diabetes 2016, [place] [employer]. Diabetes Care. 2016.39(Suppl 1). Performed By: #### 2 4321-2 ####ADAM LABORATORYCLIA [id number] [place] [id number] [place] Potassium [Moles/Vol] 5.3 mmol/L High 3.7-5.1 [facility] Comment on above: Order Comment: Kelsi huff Type: BLOOD SPECIMENOrdering Facility: [facility] Address: [address] [place] [address] Performed By: #### 2 4321-2 ####ADAM LABORATORYCLIA [id number] [place] [id number] [place] Sodium [Moles/Vol] 134 mmol/L Low 136-144 [facility] Comment on above: Order Comment: Kelsi huff Type: BLOOD SPECIMENOrdering Facility: [facility] Address: [address] [place] [address] Performed By: #### 2 4321-2 ####ADAM LABORATORYCLIA [id number] [address] STATES [facility] Urea nitrogen [Mass/Vol] 54 mg/dL High 9-24 [facility] Comment on above: Order Comment: Speci men Type: BLOOD SPECIMENOrdering Facility: [facility] Address: [address] [place] [address] Performed By: #### 2 4321-2 ####ADAM LABORATORYCLIA [id number] [address] CBC panel Auto (Bld)on 01-08 Erythrocyte distribution width (RBC) [Ratio] 16.0 % High 11.5-15.0 [facility] Comment on above: Order Comment: Speci men Type: BLOOD SPECIMENOrdering Facility: [facility] Address: [address] [place] [address] Performed By: #### 5 8410-2 ####ADAM LABORATORYCLIA [id number] [address] Hematocrit (Bld) [Volume fraction] 36.0 % Low 39.0-51.0 [facility] Comment on above: Order Comment: Speci men Type: BLOOD SPECIMENOrdering Facility: [facility] Address: [address] [place] [address] Performed By: #### 5 8410-2 ####ADAM LABORATORYCLIA [id number] [address] Hemoglobin (Bld) [Mass/Vol] 11.4 g/dL Low 13.0-17.0 [facility] Comment on above: Order Comment: Speci men Type: BLOOD SPECIMENOrdering Facility: [facility] Address: [address] [place] [address] Performed By: #### 5 8410-2 ####ADAM LABORATORYCLIA [id number] [address] MCH (RBC) [Entitic mass] 31.7 pg Normal 26.0-34.0 [facility] Comment on above: Order Comment: Speci men Type: BLOOD SPECIMENOrdering Facility: [facility] Address: [address] [place] [address] Performed By: #### 5 8410-2 ####ADAM LABORATORYCLIA [id number] [address] MCHC (RBC) [Mass/Vol] 31.7 g/dL Normal 30.5-36.0 [facility] Comment on above: Order Comment: Speci men Type: BLOOD SPECIMENOrdering Facility: [facility] Address: [address] [place] [address] Performed By: #### 5 8410-2 ####ADAM LABORATORYCLIA [id number] [address] MCV (RBC) [Entitic vol] 100.0 fL Normal 80.0-100.0 [facility] Comment on above: Order Comment: Speci men Type: BLOOD SPECIMENOrdering Facility: [facility] Address: [address] [place] [address] Performed By: #### 5 8410-2 ####ADAM LABORATORYCLIA [id number] [address] Nucleated RBC (Bld) [#/Vol] 10*3/uL Normal <0.01 [facility] Comment on above: Order Comment: Speci men Type: BLOOD SPECIMENOrdering Facility: [facility] Address: [address] [place] [address] Performed By: #### 5 8410-2 ####ADAM LABORATORYCLIA [id number] [address] [place] Platelet mean volume (Bld) [Entitic vol] 10.1 fL Normal 9.0-12.7 [facility] Comment on above: Order Comment: Speci men Type: BLOOD SPECIMENOrdering Facility: [facility] Address: [address] [place] [address] Performed By: #### 5 8410-2 ####ADAM LABORATORYCLIA [id number] [address] [place] Platelets (Bld) [#/Vol] 122 10*3/uL Low 150-400 [facility] Comment on above: Order Comment: Speci men Type: BLOOD SPECIMENOrdering Facility: [facility] Address: [address] [place] [address] Result Comment: No c lot detected. Performed By: #### 5 8410-2 ####ADAM LABORATORYCLIA [id number] [address] RBC (Bld) [#/Vol] 3.60 10*6/uL Low 4.20-6.00 [facility] Comment on above: Order Comment: Speci men Type: BLOOD SPECIMENOrdering Facility: [facility] Address: [address] [place] [address] Performed By: #### 5 8410-2 ####ADAM LABORATORYCLIA [id number] [address] WBC (Bld) [#/Vol] 6.19 10*3/uL Normal 3.70-11.00 [facility] Comment on above: Order Comment: Speci men Type: BLOOD SPECIMENOrdering Facility: [facility] Address: [address] [place] [address] Performed By: #### 5 8410-2 ####ADAM LABORATORYCLIA [id number] [address] CONSULTon 01-08-2025 CONSULT HNO ID: [id number] Author: SCOTT SAUCEDO MD Service: Orthopaedic Surgery [...] GARRET (acute kidney injury) 03/24/2019 Ankylosing spondylitis ([facility]) CAD (coronary artery disease) Cellulitis Chronic combined systolic and diastolic CHF (congestive heart failure) ([facility]) 03/24/2019 CKD (chronic kidney disease) stage 3, GFR 30-59 ml/min ([facility]) 03/24/2019 Constipation Diabetes ([facility]) Gout High phosphate levels 03/24/2019 History of [...] valve calcifi NSTEMI (non-ST elevated myocardial infarction) ([facility]) 03/12/2017 [facility] admit Osteoarthritis Transition of care performed with sharing of clinical summary 04/08/2019 Admit [facility] 03/21/19-03/22/19 Discharge diagnoses chronic kidney disease with worsening creatinine, acute kidney injury Hypokalemia Toxic encephalopathy secondary to Flexeril overusage Type 2 diabetes Ischemic cardiomyopathy Coronary artery disease Ligamental cervical neck strain and acute Pulmonary hypertension Hypertension Pyuria Preadmit: to [facility] ED with slurred speech, lethargy. PSHX [...] pain in hip with log roll Normal [facility] CONSULT PROGon 01-08-2025 CONSULT PROG HNO ID: [id number] Author: JOSAFAT LOREDO MD Service: Nephrology Author [...] 5 mg 3 times a day Normal [facility] CT BRAIN WO IVCONon 01-09-[address] BRAIN WO IVCON * * *Final Report* * * DATE OF EXAM: Jan 08 2025 11:38AM [facility] 0504 - CT BRAIN WO IVCON / [...] AN ACUTE INTRACRANIAL PROCESS Maxillary sinus disease. Drawing Checker: PSCB Transcribe Date/Time: Jan 08 2025 11:42A Dictated by : SONG DE LA GARZA MD This examination was interpreted and the report reviewed and electronically signed by: SONG DE LA GARZA MD on Jan 08 2025 11:44AM EST [id number] Normal [facility] PTH-Intact SerPl-mCncon - Parathyrin.intact [Mass/Vol] 254 pg/mL High 15- [facility] Comment on above: Order Comment: Speci men Type: BLOOD SPECIMENOrdering Facility: [facility] Address: [address] [place] [address] Performed By: #### 2 731-8 ####[facility] LABCLIA [id number] NATALIE ECHEVARRIA [address] THERAPY NTon 01-08-2025 THERAPY NT HNO ID: [id number] Author: SONA HILL PT Service: Physical Therapy Author Type: Physical Therapist Type: Therapy (PT/OT/Speech/Resp) Filed: 01/08/2025 16:37 Note Text: -- Summary: PT missed visit -- PHYSICAL THERAPY MISSED VISIT SERVICE DATE: 01/08/2025 SERVICE TIME: 1620 ROOM: [place] [address] Patient not seen due to Clinical Appropriateness.discussed [...] DATE: January 08, 2025 TIME: 4:34 PM Normal [facility] THERAPY NT HNO ID: [id number] Author: CARLOS EDUARDO HELTON, OT/L Service: ? Author Type: Occupational Therapist Type: Therapy (PT/OT/Speech/Resp) Filed: 01/08/2025 10:49 Note Text: -- Summary: OT missed visit -- OCCUPATIONAL THERAPY MISSED VISIT SERVICE DATE: 01/08/2025 SERVICE TIME: 0715 ROOM: [place] [address] Patient not seen due to Incomplete Orders. Pt awaiting ortho consult for L sacral fracture and L superior pubic fracture. Will continue to follow for ortho recs and re-attempt as able/appropriate. 10:48 addendum: RN requesting OT hold eval at this time, team doing a STAT workup and pt unstable to participate at this time. SIGNATURE: Carlos Eduardo Helton OT/Farhana PATIENT NAME: Mauri Quinones DATE: January 08, 2025 TIME: 7:15 AM [facility] XR CHEST 1V FRONTAL PORTon 0 01-08-2025 [...] as discussed under Results portion of report. Drawing Checker: CARMELA Transcribe Date/Time: Jan 08 2025 12:17P Dictated by : OSMAN JORDAN DO This examination was interpreted and the report reviewed and electronically signed by: OSMAN JORDAN DO on Jan 08 2025 12:19PM EST [id number] [facility] CONSULTon 01-07-2025 CONSULT HNO ID: [id number] Author: JOSAFAT LOREDO MD Service: Nephrology Author [...] on hemodialysis for last 2 years and [facility] and getting dialysis through left upper extremity AV fistula. Last dialysis was yesterday no need for dialysis today PAST MEDICAL HISTORY Diagnosis Date Acute on chronic diastolic congestive heart failure (HCC) 07/14/2018 GARRET (acute kidney injury) 03/24/2019 GARRET (acute kidney injury) 03/24/2019 Ankylosing spondylitis ([facility]) CAD (coronary artery disease) Cellulitis Chronic combined systolic and diastolic CHF (congestive heart failure) ([facility]) 03/24/2019 CKD (chronic kidney disease) stage 3, GFR 30-59 ml/min ([facility]) 03/24/2019 Constipation Diabetes ([facility]) Gout High phosphate levels 03/24/2019 History of [...] NSTEMI (non-ST elevated myocardial infarction) (HCC) 03/12/2017 [facility] admit Osteoarthritis Transition of care performed with sharing of clinical summary 04/08/2019 Admit [facility] 03/21/19-03/22/19 Discharge diagnoses chronic kidney disease with worsening creatinine, acute kidney injury Hypokalemia Toxic encephalopathy secondary to Flexeril overusage Type 2 diabetes Ischemic cardiomyopathy Coronary artery disease Ligamental cervical neck strain and acute Pulmonary hypertension Hypertension Pyuria Preadmit: to [facility] ED with slurred speech, lethargy. PAST [...] Sig: Take 1 tablet by mouth. Insulin Ridge, Disposable, (BD ULTRA-FINE GOLDY PEN NEEDLE) 32 [...] as needed (more content not included)... Normal [facility] HISTORY PHYSICALon HISTORY PHYSICAL HNO ID: [id number] Author: SHE OHARA DO Service: Hospital Medicine Author Type: Physician Type: H&P Filed: 01/07/2025 14:03 Note Text: DEPARTMENT OF HOSPITAL MEDICINE HISTORY AND PHYSICAL EXAM SERVICE DATE: 01/07/2025 SERVICE TIME: 10:50 AM Primary Care Physician: Rigoberto Gould MD NIGHT AND WEEKEND COVERAGE: ELROSA COVERAGE: Days: [phone], please page attending physician. Nights: [phone], please page [facility] Night coverage pager [phone]. Subjective CHIEF COMPLAINT: Fall and left hip [...] except for Na 134 and bun 32 paginator 3.12. INR was 1.2. CT brain without acute process. Xray of the pelvis showed no fracture. CT of the pelvis was done due to pain and showed minimally displaced fracture of the left sacrum, questionable minimally displaced fracture of the left superior pelvic ramus, no evidence of R KEMAR hardware complication He was transferred to [place] for evaluation by orthopedics. PAST MEDICAL HISTORY Diagnosis Date Acute on chronic diastolic congestive heart failure ([facility]) 07/14/2018 GARRET (acute kidney injury) 03/24/2019 GARRET (acute kidney injury) 03/24/2019 Ankylosing spondylitis ([facility]) CAD (coronary artery disease) Cellulitis Chronic combined systolic and diastolic CHF (congestive heart failure) ([facility]) 03/24/2019 CKD (chronic kidney disease) stage 3, GFR 30-59 ml/min ([facility]) 03/24/2019 Constipation Diabetes ([facility]) Gout High phosphate levels 03/24/2019 History of [...] valve calcifi NSTEMI (non-ST elevated myocardial infarction) ([facility]) 03/12/2017 [facility] admit Osteoarthritis Transition of care performed with sharing of clinical summary 04/08/2019 Admit [facility] 03/21/19-03/22/19 Discharge diagnoses chronic kidney disease with worsening creatinine, acute kidney injury Hypokalemia Toxic encephalopathy secondary to Flexeril overusage Type 2 diabetes Ischemic cardiomyopathy Coronary artery disease Ligamental cervical neck strain and acute Pulmonary hypertension Hypertension Pyuria Preadmit: to [facility] ED with slurred speech, lethargy. PAST [...] Sig: Take 1 tablet by mouth. Insulin Ridge, Disposable, (BD ULTRA-FINE GOLDY PEN NEEDLE) 32 gauge x No No Sig: Use one needle for each dose. once/day. LANTUS SOLOSTAR U-100 INSULIN 100 unit/mL (3 mL) 01/06/2025 No Yes Sig: Inject 10 Units subcutaneously daily at bedtime. Tadalafil (CIALIS) 20 mg tablet No No Sig: Take 1 tablet b (more content not included)... Normal [facility] 12 Lead EKGon 01-06-2025 12 Lead EKG [facility] Cardi[facility] Services [address] [place] [address] 12 Lead EKG 01/06/25 1852 MR#: [id number] Acct: [id number] Name: MAURI QUINONES Rep #: [id number] : 1955 69 From: José Miguel Nunez [...] consider lateral ischemia Abnormal ECG Confirmed by MAYRA RASMUSSEN, JOSÉ MIGUEL ([id number]), movie editor EDELMIRA MANLEY ([id number]) on 01/12/2025 8:59:24 AM Referred By: Confirmed By: JOSÉ MIGUEL NUNEZ MD 01/12/25 0859 Date José Miguel Nunez MD CC: Dr. Ra Aaron DO; Dr. Martín Romano DO; Dr. Rigoberto Gould MD Signed Normal [facility] Absolute lymphocyte countOrd ered By: Martín Romano on 01-06-2025 Lymphocytes Auto (Unsp spec) [#/Vol] 0.63 10*3/uL Low 0.83-4.51 [facility] Activated partial thrombopla stin time (aPTT) in platelet poor plasma by coagulation aOrdered By: Martín Romano on 01-06-2025 aPTT Coag (PPP) [Time] 32.1 s 24.1-36.2 [facility] Anion gap in Serum or Plasma Ordered By: Martín Romano on 01-06-2025 Anion gap [Moles/Vol] 14 mmol/L 01-08 [facility] Automated lymphocyte count a s percentage of total leukocytesOrdered By: Martín Romano on 01-06-2025 Lymphocytes/100 WBC Auto (Unsp spec) 7.5 % Low 19-41 [facility] BUN/creatinine ratioOrdered By: Martín Romano on 01-06-2025 Urea nitrogen/Creatinine [Mass ratio] 10.1 mg/mg - [facility] Basic Metabolic Profile (BMP )on 01-06-2025 BUN/CRE 10.1 RATIO Normal 06-15 [facility] Comment on above: Performed By: #### L 501.080 #### [facility] [address] [place], [address] Calcium [Mass/Vol] 9.7 mg/dL Normal 7.6-11.0 [facility] Comment on above: Performed By: #### L 501.080 #### [facility] [address] [place], [address] Chloride [Moles/Vol] 92 mmol/L Low 98-108 [facility] Comment on above: Performed By: #### L 501.080 #### [facility] [address] [place], [address] CO2 [Moles/Vol] 28.6 mmol/L Normal 21.0-32.0 [facility] Comment on above: Performed By: #### L 501.080 #### [facility] [address] [place], [address] Creatinine [Mass/Vol] 3.12 mg/dL High 0.70-1.20 [facility] Comment on above: Performed By: #### L 501.080 #### [facility] [address] [place], [address] ECRCL 23.72 ml/min Low 50-250 [facility] Comment on above: Performed By: #### L 501.080 #### [facility] [address] [place], [address] GAP 14 Normal 5-15 [facility] Comment on above: Performed By: #### L 501.080 #### [facility] [address] [place], [address] GFR/1.73 sq M.predicted among non-blacks MDRD (S/P/Bld) [Vol rate/Area] 21 mL/min/{1.73_m2} Low >60 [facility] Comment on above: Result Comment: mL/m in/1.73m2 CKD-EPI Creatinine Equation (2020) Performed By: #### L 501.080 #### [facility] [address] [place], [address] Glucose [Mass/Vol] 126 mg/dL High 70-99 [facility] Comment on above: Performed By: #### L 501.080 #### [facility] [address] [place], [address] Potassium [Moles/Vol] 3.8 mmol/L Normal 3.3-5.1 [facility] Comment on above: Performed By: #### L 501.080 #### [facility] [address] [place], [address] Sodium [Moles/Vol] 134 mmol/L Normal 133-145 [facility] Comment on above: Performed By: #### L 501.080 #### [facility] [address] [place], [address] Urea nitrogen [Mass/Vol] 32 mg/dL High 4-19 [facility] Comment on above: Performed By: #### L 501.080 #### [facility] [address] [place], [address] Basophil percentageOrdered B y: Martín Romano on 01-06-2025 Basophils/100 WBC (Bld) 0.5 % 0-1 [facility] Brain/Head without Contrasto n 01-06-2025 Brain/Head without Contrast [facility] Imaging Services [address] [place] [address] Brain/Head without Contrast MR#: [id number] Acct: [id number] Name: STACIEMAURI L Rep #: [id number] : 1955 M 69 From: Vincent Monteiro MD PCP: Dr. Rigoberto Gould MD Status: REG ER Study: Brain/Head without Contrast Date of Exam: 12/25 11/18 Exam# [id number] Ordering Dr: Martín Romano DO PROCEDURE: BRAIN/HEAD [...] acute intracranial abnormality. Senescent changes. Reading Location: [id number] CC: Dr. Martín Romano DO; Dr. Rigoberto Gould MD Drawing Checker: Signed Normal [facility] CBC W/Diff, Automatedon 05- Absolute Lymph 0.63 X10 3/uL Low 0.83-4.51 [facility] Comment on above: Performed By: #### L 501.080 #### [facility] [address] [place], [address] Absolute Neut 6.8 X10 3/uL Normal 2.0-7.7 [facility] Comment on above: Performed By: #### L 501.080 #### [facility] [address] [facility] [place], [address] Basophils/100 WBC (Bld) 0.5 % Normal 0-1 [facility] Comment on above: Performed By: #### L 501.080 #### [facility] [address] [facility] [place], [address] Eosinophils/100 WBC (Bld) 1.1 % Normal 0-5 [facility] Comment on above: Performed By: #### L 501.080 #### [facility] [address] [place], [address] Erythrocyte distribution width (RBC) [Ratio] 15.9 % High 11.6-14.6 [facility] Comment on above: Performed By: #### L 501.080 #### [facility] [address] [facility] [place], [address] Hematocrit (Bld) [Volume fraction] 38.4 % Low 40-54 [facility] Comment on above: Performed By: #### L 501.080 #### [facility] [address] [facility] [place], [address] Hemoglobin (Bld) [Mass/Vol] 12.7 g/dL Low 13.0-16.5 [facility] Comment on above: Performed By: #### L 501.080 #### [facility] [address] [facility] [place], [address] IG% 1.000 High 0.0-0.9 [facility] Comment on above: Result Comment: IG% - Immature Granulocytes (promyelocytes, myelocytes and metamyelocytes) > 1% indicates that a LEFT SHIFT is Present. Performed By: #### L 501.080 #### [facility] [address] [place], [address] Lymphocytes/100 WBC (Bld) 7.5 % Low 19-41 [facility] Comment on above: Performed By: #### L 501.080 #### [facility] [address] [place], [address] MCH (RBC) [Entitic mass] 32.1 pg High 27.0-32.0 [facility] Comment on above: Performed By: #### L 501.080 #### [facility] [address] [place], [address] MCHC (RBC) [Mass/Vol] 33.1 g/dL Normal 32-36 [facility] Comment on above: Performed By: #### L 501.080 #### [facility] [address] [place], [address] MCV (RBC) [Entitic vol] 97.0 fL High 80-94 [facility] Comment on above: Performed By: #### L 501.080 #### [facility] [address] [place], [address] Monocytes/100 WBC (Bld) 8.8 % Normal 0-10 [facility] Comment on above: Performed By: #### L 501.080 #### [facility] [place], [address] Neutrophils/100 WBC (Bld) 81.1 % High 47-70 [facility] Comment on above: Performed By: #### L 501.080 #### [facility] [address] [place], [address] Nucleated RBC (Bld) [#/Vol] 0 10*3/uL Normal 0-5 [facility] Comment on above: Performed By: #### L 501.080 #### [facility] [address] [place], [address] Platelet mean volume (Bld) [Entitic vol] 10.2 fL Normal 6.2-12.0 [facility] Comment on above: Performed By: #### L 501.080 #### [facility] [address] [place], [address] Platelets (Bld) [#/Vol] 137 10*3/uL Low 150-450 [facility] Comment on above: Performed By: #### L 501.080 #### [facility] [address] [place], [address] RBC (Bld) [#/Vol] 3.96 10*6/uL Low 4.6-6.2 [facility] Comment on above: Performed By: #### L 501.080 #### [facility] [address] [place], [address] RDW SD 56.9 fl High 35.1-43.9 [facility] Comment on above: Performed By: #### L 501.080 #### [facility] [address] [place], [address] WBC (Bld) [#/Vol] 8.4 10*3/uL Normal 4.4-11.0 [facility] Comment on above: Performed By: #### L 501.080 #### [facility] [address] [place], [place], [address] [facility] 01-06-2025 [facility] Nurse Visit (UROLMD) -- MAURI QUINONES ([id number]) 1955 [facility] Date Time Provider Department 01/06/25 1:00 PM NURSE UROL [facility] UROD During your visit today, we recorded the following information about you: Nikc Muñoz, RN 01/23/2025 10:48 AM Signed Patient [...] tablet by mouth every morning. - Insulin Ridge, Disposable, (BD ULTRA-FINE GOLDY PEN NEEDLE) 32 [...] [place]el[place], PharmD Problem List As Of Date 01/06/2025 [...] [D50.0] 04/30 (more content not included)... Normal [facility] Carbon dioxide, total [Moles /volume] in Central venous bloodOrdered By: Martín Romano on 01-06-2025 CO2 [Moles/Vol] 28.6 mmol/L 21.0-32.0 [facility] Chloride assayOrdered By: Mic Romano on 01-06-2025 Chloride [Moles/Vol] 92 mmol/L Low 98-108 [facility] Emergency Department Summary on 01-06-2025 Emergency Department Summary [facility] Medical Records Department [address] [place] [address] Emergency Department Summary 01/06/25 MR#: [id number] Acct: [id number] Name: MAURI QUINONES Farhana Rep #: [id number] : 1955 69 From: Martín [place] PCP: [...] He is currently followed by orthopedist at [facility] Colleen Fuentes, states has spurs in his [...] dialysis yesterday. Prior similar symptoms: Yes PFSH [facility] Medical History Persistent atrial fibrillation Paroxysmal atrial fibrillation C. difficile diarrhea Anemia History of GI bleed Pure hypercholesterolemia Ischemic cardiomyopathy Essential hypertension Renal insufficiency Ankylosing spondylitis CAD (coronary artery disease) Overweight (BMI 25.0-29.9) Leg edema Leg swelling Acute systolic heart failure Bradycardia Biliary pleural effusion HTN (hypertension) Ventricular tachyarrhythmia Atherosclerosis of holy cross co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 pectoris Pulmonary HTN Cardiomyopathy [...] Genitourinary Genitourinary (more content not included)... Normal [facility] Eosinophil percentageOrdered By: Martín Romano on 01-06-2025 Eosinophils/100 WBC (Bld) 1.1 % 0-5 [facility] Erythrocyte distribution wid th ratioOrdered By: Martín Romano on 01-06-2025 Erythrocyte distribution width (RBC) [Ratio] 15.9 % High 11.6-14.6 [facility] Erythrocyte distribution wid th standard deviationOrdered By: Martín Romano on 01-06-2025 Erythrocyte distribution width (RBC) [Ratio] 56.9 fl High 35.1-43.9 [facility] Glomerular filtration rate ( GFR) estimation/1.73 sq m using serum, plasma, or whole bOrdered By: Martín Romano on 01-06-2025 GFR/1.73 sq M.predicted among non-blacks MDRD (S/P/Bld) [Vol rate/Area] 21 mL/min/{1.73_m2} Low >60 [facility] HIP, UNI W/ Pelvis 2-3 Views on 01-06-2025 HIP, UNI W/ Pelvis 2-3 Views [facility] Imaging Services [address] [place], [place] [address] HIP, UNI W/ Pelvis 2-3 Views MR#: [id number] Acct: [id number] Name: MAURI QUINONES Rep #: [id number] : 1955 M 69 From: Trino miguel MD PCP: Dr. Rigoberto Gould MD Status: REG ER Study: HIP, UNI W/ Pelvis 2-3 Views Date of Exam: Exam# [id number] Ordering Dr: Martín Romano DO PROCEDURE: HIP, [...] dislocation. Moderate left hip osteoarthritis. [facility] CC: Dr. Martín Romano DO; Dr. Rigoberto Gould MD Drawing Checker: Signed Normal [facility] Hematocrit Auto (Bld) [Volum e fraction]Ordered By: Martín Romano on 01-06-2025 Hematocrit (Bld) [Volume fraction] 38.4 % Low 40-54 [facility] Hemoglobin measurementOrdere d By: Martín Romano on 01-06-2025 Hemoglobin (Bld) [Mass/Vol] 12.7 g/dL Low 13.0-16.5 [facility] Immature granulocytes/100 WB C Auto (Bld)Ordered By: Martín Romano on 01-06-2025 Immature granulocytes/100 WBC (Bld) 1.000 % High 0.0-0.9 [facility] MCV (mean corpuscular volume ) determinationOrdered By: Martín Romano on 01-06-2025 MCV (RBC) [Entitic vol] 97.0 fL High 80-94 [facility] Mean corpuscular hemoglobin (MCH) determinationOrdered By: Martín Romano on 01-06-2025 MCH (RBC) [Entitic mass] 32.1 pg High 27.0-32.0 [facility] Monocyte percentageOrdered B y: Martín Romano on 01-06-2025 Monocytes/100 WBC (Bld) 8.8 % 0-10 [facility] Neutrophil percentageOrdered By: Martín Romano on 01-06-2025 Neutrophils/100 WBC (Bld) 81.1 % High 47-70 [facility] Partial Thromboplast Timeon 01-06-2025 aPTT Coag (Bld) [Time] 32.1 s Normal 24.1-36.2 [facility] Comment on above: Performed By: #### L 501.080 #### [facility] [address] [place], [address] Pelvis without IV Contraston 01-06-2025 Pelvis without IV Contrast [facility] [address] [place], [place] [address] Pelvis without IV Contrast MR#: [id number] Acct: [id number] Name: MAURI QUINONES Rep #: [id number] : 1955 M 69 From: Vincent Monteiro MD PCP: Dr. Rigoberto Gould MD Status: REG ER Study: Pelvis without IV Contrast Date of Exam: 01/06 Exam# [id number] Ordering Dr: Martín Romano DO PROCEDURE: PELVIS [...] evaluate for additional nondisplaced fractures. Reading Location: [id number] CC: Dr. Martín Romano DO; Dr. Rigoberto Gould MD Drawing Checker: Signed Normal [facility] Platelet countOrdered By: Mic Romano on 01-06-2025 Platelets (Bld) [#/Vol] 137 10*3/uL Low 150-450 [facility] Potassium measurement (mass/ volume)Ordered By: Martín Romano on 01-06-2025 Potassium (Unsp spec) [Mass/Vol] 3.8 mmol/L 3.3-5.1 [facility] Prothrombin Time w/INRon INR Coag (PPP) [Relative time] 1.2 {INR} Normal [facility] Comment on above: Performed By: #### L 501.080 #### [facility] [address] [place], [place], [id number] PT Coag (PPP) [Time] 15.5 s High 11.7-14.9 [facility] Comment on above: Performed By: #### L 501.080 #### [facility] [address] [place], [place], [address] Prothrombin timeOrdered By: Martín Romano on 01-06-2025 PT Coag (PPP) [Time] 15.5 s High 11.7-14.9 [facility] RBC Auto (Bld) [#/Vol]Ordere d By: Martín Romano on 01-06-2025 RBC (Bld) [#/Vol] 3.96 10*6/uL Low 4.6-6.2 [facility] Serum creatinine measurement (mass/volume)Ordered By: Martín Romano on 01-06-2025 Creatinine [Mass/Vol] 3.12 mg/dL High 0.70-1.20 [facility] Serum glucose measurement (m ass/volume)Ordered By: Martín Romano on 01-06-2025 Glucose [Mass/Vol] 126 mg/dL High 70-99 [facility] Serum or plasma calcium sneha urement (mass/volume)Ordered By: Martín Romano on 01-06-2025 Calcium [Mass/Vol] 9.7 mg/dL 7.6-11.0 [facility] Serum or plasma urea nitroge n measurement (mass/volume)Ordered By: Martín Romano on 01-06-2025 Urea nitrogen [Mass/Vol] 32 mg/dL High 4-19 [facility] Sodium levelOrdered By: Martín Romano on 01-06-2025 Sodium [Moles/Vol] 134 mmol/L 133-145 [facility] White blood cell (WBC) count Ordered By: Martín Romano on 01-06-2025 WBC (Bld) [#/Vol] 8.4 10*3/uL 4.4-11.0 [facility] CNPNon 01-05-2025 CNPN Telephone (UROLMD) -- MAURI QUINONES ([id number]) 1955 M Date Time Provider Department 01/05/25 JENSEN PUCKETT JR UROMARA During your visit today, we recorded the following information about you: Lissette Sanabria, [place] 01/05/2025 2:42 PM Signed Patient calling to see which He saw when there at office. I attempted to call back and get patient the information. Left Dr. Puckett's name on voicemail, and advised to call back if needed. PLAN: Butler out today Will call if has to have replaced Would do cysto then MD Elly Holly Jr, Janelle, [place] 01/06/2025 8:08 AM Signed Nick spoke with [...] tablet by mouth every morning. - Insulin Ridge, Disposable, (BD ULTRA-FINE GOLDY PEN NEEDLE) 32 [...] Shook, PharmD Problem List As Of Date 01/05/2025 [...] apnea) [G47.33] (more content not included)... Normal [facility] MAURI QUINONES ([id number]) 1955 M Date Time Provider Department 01/02/25 [facility] During your visit today, we recorded [...] increase the dose of trazodone. Pharmacy is [facility]. 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 - Insulin Ridge, Disposable, (BD ULTRA-FINE GOLDY PEN NEEDLE) 32 [...] Boone, PharmD Problem List As Of Date 01/02/2025 [...] [J90] 07/14/2018 12/02/2021 PVD (peripheral vascular disease) ([facility]) [I73.9] 07/16/2018 Altered mental status [R41.82] 03/24/2019 [...] stage I (more content not included)... Normal [facility] CNOVon 12-30-2024 CNOV Office Visit (UROLMD ) -- QUINONESMAURI Miguel ([id number]) 1955 M Date Time Provider Department 12/30/24 2:45 PM JENSEN PUCKETT JR UROLMD During your visit today, we recorded the following information about you: Weight 80.3 kg Jensen Puckett Jr., MD 01/03/2025 3:13 PM Signed NEW PATIENT HISTORY AND PHYSICAL EXAM PATIENT INFO: Mauri Delcid Quinones 69 year old REFERRING PROVIDER: NO [...] Value 04/24/2022 Negative 03/23/2019 NEGATIVE mg/dL Specific [place], Ur (no units) Date Value 04/24/2022 1.014 [...] 1 tablet by mouth every morning. Insulin Ridge, Disposable, (BD ULTRA-FINE GOLDY PEN NEEDLE) 32 [...] Acute on chronic diastolic congestive heart failure ([facility]) 07/14/2018 GARRET (acute kidney injury) 03/24/2019 GARRET (acute kidney injury) 03/24/2019 Ankylosing spondylitis ([facility]) CAD (coronary artery disease) Cellulitis Chronic combined systolic and diastolic CHF (congestive heart failure) ([facility]) 03/24/2019 CKD (chronic kidney disease) stage 3, GFR 30-59 ml/min ([facility]) 03/24/2019 Constipation Diabetes ([facility]) Gout High phosphate levels 03/24/2019 History of [...] valve calcifi NSTEMI (non-ST elevated myocardial infarction) ([facility]) 03/12/2017 [facility] admit Osteoarthritis Transition of care performed with sharing o (more content not included)... Normal [facility] 12-30-2024 [facility] Telephone (FAMPWS) -- QUINONESMAURI Miguel ([id number]) 1955 M Date Time Provider Department 12/30/24 RIGOBERTO GOULD During your visit today, we recorded the following information about you: Aditya Summers, RN 12/30/2024 9:07 AM Signed [facility]- phoned concerned about pt not voiding [...] tablet by mouth every morning. - Insulin Ridge, Disposable, (BD ULTRA-FINE GOLDY PEN NEEDLE) 32 gauge x 532 Use one needle for each dose. once/day. [...] open typ*05 (more content not included)... Normal [facility] Abdomen/Pelvis without Conto n 12-29-2024 Abdomen/Pelvis without Cont [facility] [address] [place] [address] Abdomen/Pelvis without Cont MR#: [id number] Acct: [id number] Name: MAURI QUINONES Rep #: [id number] : 1955 M 69 From: Trino miguel MD PCP: Dr. Rigoberto Gould MD Status: REG ER Study: Abdomen/Pelvis without Cont Date of Exam: 01/18 Exam# [id number] Ordering Dr: Ra Aaron DO PROCEDURE: ABDOMEN/PELVIS [...] Other findings as described above. Reading [facility] CC: Dr. Ra Aaron DO; Dr. Rigoberto Gould MD Drawing Checker: Signed Normal [facility] Absolute lymphocyte countOrd ered By: Ra Aaron on 12-29-2024 Lymphocytes Auto (Unsp spec) [#/Vol] 0.80 10*3/uL Low 0.83-4.51 [facility] Anion gap in Serum or Plasma Ordered By: Ra Aaron on 12-29-2024 Anion gap [Moles/Vol] 15 mmol/L 5-15 [facility] Automated lymphocyte count a s percentage of total leukocytesOrdered By: Ra Aaron on 12-29-2024 Lymphocytes/100 WBC Auto (Unsp spec) 15.3 % Low 19-41 [facility] BUN/creatinine ratioOrdered By: Ra Aaron on 12-29-2024 Urea nitrogen/Creatinine [Mass ratio] 14.5 mg/mg 10-20 [facility] Basic Metabolic Profile (BMP )on 12-29-2024 BUN/CRE 14.5 RATIO Normal -20 [facility] Comment on above: Performed By: #### L 501.080 #### [facility] [address] [place], [address] Calcium [Mass/Vol] 10.2 mg/dL Normal 7.6-11.0 [facility] Comment on above: Performed By: #### L 501.080 #### [facility] [address] [place], [address] Chloride [Moles/Vol] 89 mmol/L Low 98-108 [facility] Comment on above: Performed By: #### L 501.080 #### [facility] [address] [place], [address] CO2 [Moles/Vol] 26.0 mmol/L Normal 21.0-32.0 [facility] Comment on above: Performed By: #### L 501.080 #### [facility] [address] [place], [address] Creatinine [Mass/Vol] 5.00 mg/dL High 0.70-1.20 [facility] Comment on above: Performed By: #### L 501.080 #### [facility] [address] [place], [address] ECRCL 14.80 ml/min Low 50-250 [facility] Comment on above: Performed By: #### L 501.080 #### [facility] [address] [place], [address] GAP 15 Normal 5-15 [facility] Comment on above: Performed By: #### L 501.080 #### [facility] [address] [place], [address] GFR/1.73 sq M.predicted among non-blacks MDRD (S/P/Bld) [Vol rate/Area] 12 mL/min/{1.73_m2} Low >60 [facility] Comment on above: Result Comment: mL/m in/1.73m2 CKD-EPI Creatinine Equation (2020) Performed By: #### L 501.080 #### [facility] [address] [place], [address] Glucose [Mass/Vol] 156 mg/dL High 70-99 [facility] Comment on above: Performed By: #### L 501.080 #### [facility] [address] [place], [address] Potassium [Moles/Vol] 3.9 mmol/L Normal 3.3-5.1 [facility] Comment on above: Performed By: #### L 501.080 #### [facility] [address] [place], [address] Sodium [Moles/Vol] 130 mmol/L Low 133-145 [facility] Comment on above: Performed By: #### L 501.080 #### [facility] [address] [place], [address] Urea nitrogen [Mass/Vol] 73 mg/dL High 4-19 [facility] Comment on above: Performed By: #### L 501.080 #### [facility] [address] [place], [address] Basophil percentageOrdered B y: Ra Aaron on 12-29-2024 Basophils/100 WBC (Bld) 1.0 % 0-1 [facility] CBC W/Diff, Automatedon Absolute Lymph 0.80 X10 3/uL Low 0.83-4.51 [facility] Comment on above: Performed By: #### L 501.080 #### [facility] [address] [place], [address] Absolute Neut 3.7 X10 3/uL Normal 2.0-7.7 [facility] Comment on above: Performed By: #### L 501.080 #### [facility] [address] [place], [address] Basophils/100 WBC (Bld) 1.0 % Normal 0-1 [facility] Comment on above: Performed By: #### L 501.080 #### [facility] [address] [place], [address] Eosinophils/100 WBC (Bld) 2.5 % Normal 0-5 [facility] Comment on above: Performed By: #### L [id number] #### [facility] [address] [place], [address] Erythrocyte distribution width (RBC) [Ratio] 16.4 % High 11.6-14.6 [facility] Comment on above: Performed By: #### L 501.080 #### [facility] [address] [place], [address] Hematocrit (Bld) [Volume fraction] 37.2 % Low 40-54 [facility] Comment on above: Performed By: #### L 501.080 #### [facility] [address] [place], [address] Hemoglobin (Bld) [Mass/Vol] 12.4 g/dL Low 13.0-16.5 [facility] Comment on above: Performed By: #### L 501.080 #### [facility] [address] [place], [address] IG% 0.200 Normal 0.0-0.9 [facility] Comment on above: Result Comment: IG% - Immature Granulocytes (promyelocytes, myelocytes and metamyelocytes) > 1% indicates that a LEFT SHIFT is Present. Performed By: #### L 501.080 #### [facility] [address] [place], [address] Lymphocytes/100 WBC (Bld) 15.3 % Low 19-41 [facility] Comment on above: Performed By: #### L 501.080 #### [facility] [address] [place], [address] MCH (RBC) [Entitic mass] 32.1 pg High 27.0-32.0 [facility] Comment on above: Performed By: #### L 501.080 #### [facility] [address] [place], [address] MCHC (RBC) [Mass/Vol] 33.3 g/dL Normal 32-36 [facility] Comment on above: Performed By: #### L 501.080 #### [facility] [address] [place], [address] MCV (RBC) [Entitic vol] 96.4 fL High 80-94 [facility] Comment on above: Performed By: #### L 501.080 #### [facility] [address] [place], [address] Monocytes/100 WBC (Bld) 10.5 % High 0-10 [facility] Comment on above: Performed By: #### L 501.080 #### [facility] [address] [place], [address] Neutrophils/100 WBC (Bld) 70.5 % High 47-70 [facility] Comment on above: Performed By: #### L 501.080 #### [facility] [address] [place], [address] Nucleated RBC (Bld) [#/Vol] 0 10*3/uL Normal 0-5 [facility] Comment on above: Performed By: #### L 501.080 #### [facility] [address] [place], [address] Platelet mean volume (Bld) [Entitic vol] 10.0 fL Normal 6.2-12.0 [facility] Comment on above: Performed By: #### L 501.080 #### [facility] [address] [place], [address] Platelets (Bld) [#/Vol] 120 10*3/uL Low 150-450 [facility] Comment on above: Performed By: #### L 501.080 #### [facility] [address] [place], [address] RBC (Bld) [#/Vol] 3.86 10*6/uL Low 4.6-6.2 [facility] Comment on above: Performed By: #### L 501.080 #### [facility] [address] [place], [place], [address] RDW SD 57.9 fl High 35.1-43.9 [facility] Comment on above: Performed By: #### L 501.080 #### [facility] [address] [place], [address] WBC (Bld) [#/Vol] 5.2 10*3/uL Normal 4.4-11.0 [facility] Comment on above: Performed By: #### L 501.080 #### [facility] [address] [place], [address] CNOVon 12-29-2024 CNOV Office Visit (ELISAWS ) -- MAURI QUINONES ([id number]) 1955 M Date Time Provider Department 12/29/24 2:40 PM [facility]ERTO GOULD [facility] During your visit today, we recorded the following information about you: Pulse Blood pressure Weight 72/minute 104/62 80.3 kg Rigoberto Gould MD 12/29/2024 3:18 PM Signed Patient presents with: ER F/U Hospital F/U HPI: Patient presents today for office visit for follow up. Was in [facility] ER on 12/22/24 had butler placed and 415 cc of urine drained. Has not seen urology yet because they didn't take his insurance. Was given rocephin in ER. Currently on cefdinir has 3 days left. States that has not urinated at all since left [facility] that day. He normally urinates daily. [...] 1 tablet by mouth every morning. Insulin Ridge, Disposable, (BD ULTRA-FINE GOLDY PEN NEEDLE) 32 [...] GARRET (acute kidney injury) 03/24/2019 Ankylosing spondylitis ([facility]) CAD (coronary artery disease) Cellulitis Chronic combined systolic and diastolic CHF (congestive heart failure) ([facility]) 03/24/2019 CKD (chronic kidney disease) stage 3, GFR 30-59 ml/min ([facility]) 03/24/2019 Constipation Diabetes ([facility]) Gout High phosphate levels 03/24/2019 History of [...] valve calcifi NSTEMI (non-ST elevated myocardial infarction) ([facility]) 03/12/2017 [facility] admit Osteoarthritis Transition of care performed with sharing of clinical summary 04/08/2019 Admit [facility] 03/21/19-03/22/19 Discharge diagnoses chronic kidney disease with worsening creatinine, acute kidney injury Hypokalemia Toxic encephalopathy secondary to Flexeril overusage Type 2 diabetes Ischemic cardiomyopathy Coronary artery disease Ligamental cervical neck strain and acute Pulmonary hypertension Hypertension Pyuria Preadmit: to [facility] ED with slurred speech, lethargy. PAST SURGICAL HISTORY Procedure Laterality Date ARTHRP ACETBLR/PROX FEM PROSTC AGRFT/ALGRFT Right 2019 Dr Peguero CORONARY ARTERY BYPASS GRAFT 04/12/2017 x 3 FEMUR RIGHT OP SURGERY Right Repair of fracture with hard (more content not included)... Normal [facility] Carbon dioxide, total [Moles /volume] in Central venous bloodOrdered By: Ra Aaron on 12-29-2024 CO2 [Moles/Vol] 26.0 mmol/L 21.0-32.0 [facility] Chloride assayOrdered By: Toney Aaron on 12-29-2024 Chloride [Moles/Vol] 89 mmol/L Low 98-108 [facility] Emergency Department Summary on 12-29-2024 Emergency Department Summary [facility] Medical Records Department [address] [place] [address] Emergency Department Summary 12/29/24 MR#: [id number] Acct: [id number] Name: MAURI QUINONES Rep #: [id number] : 1955 69 From: Ra Aaron DO [...] bowel movements. He denies any flank pain. [facility] Medical History Persistent atrial fibrillation Paroxysmal atrial fibrillation C. difficile diarrhea Anemia History of GI bleed Pure hypercholesterolemia Ischemic cardiomyopathy Essential hypertension Renal insufficiency Ankylosing spondylitis CAD (coronary artery disease) Overweight (BMI 25.0-29.9) Leg edema Leg swelling Acute systolic heart failure Bradycardia Biliary pleural effusion HTN (hypertension) Ventricular tachyarrhythmia Atherosclerosis of holy cross co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 pectoris Pulmonary HTN Cardiomyopathy [...] pain, diarrhea, (more content not included)... Normal [facility] Eosinophil percentageOrdered By: Ra Aaron on 12-29-2024 Eosinophils/100 WBC (Bld) 2.5 % 0-5 [facility] Erythrocyte distribution wid th ratioOrdered By: Ra Aaron on 12-29-2024 Erythrocyte distribution width (RBC) [Ratio] 16.4 % High 11.6-14.6 [facility] Erythrocyte distribution wid th standard deviationOrdered By: Ra Aaron on 12-29-2024 Erythrocyte distribution width (RBC) [Ratio] 57.9 fl High 35.1-43.9 [facility] Glomerular filtration rate ( GFR) estimation/1.73 sq m using serum, plasma, or whole bOrdered By: Ra Aaron on 12-29-2024 GFR/1.73 sq M.predicted among non-blacks MDRD (S/P/Bld) [Vol rate/Area] 12 mL/min/{1.73_m2} Low >60 [facility] Hematocrit Auto (Bld) [Volum e fraction]Ordered By: Ra Aaron on 12-29-2024 Hematocrit (Bld) [Volume fraction] 37.2 % Low 40-54 [facility] Hemoglobin measurementOrdere d By: Ra Aaron on 12-29-2024 Hemoglobin (Bld) [Mass/Vol] 12.4 g/dL Low 13.0-16.5 [facility] Immature granulocytes/100 WB C Auto (Bld)Ordered By: Ra Aaron on 12-29-2024 Immature granulocytes/100 WBC (Bld) 0.200 % 0.0-0.9 [facility] MCV (mean corpuscular volume ) determinationOrdered By: Ra Aaron on 12-29-2024 MCV (RBC) [Entitic vol] 96.4 fL High 80-94 [facility] Mean corpuscular hemoglobin (MCH) determinationOrdered By: Ra Aaron on 12-29-2024 MCH (RBC) [Entitic mass] 32.1 pg High 27.0-32.0 [facility] Monocyte percentageOrdered B y: Ra Aaron on 12-29-2024 Monocytes/100 WBC (Bld) 10.5 % High 0-10 [facility] Neutrophil percentageOrdered By: Ra Aaron on 12-29-2024 Neutrophils/100 WBC (Bld) 70.5 % High 47-70 [facility] Platelet countOrdered By: Toney Aaron on 12-29-2024 Platelets (Bld) [#/Vol] 120 10*3/uL Low 150-450 [facility] Potassium measurement (mass/ volume)Ordered By: Ra Aaron on 12-29-2024 Potassium (Unsp spec) [Mass/Vol] 3.9 mmol/L 3.3-5.1 [facility] RBC Auto (Bld) [#/Vol]Ordere d By: Ra Aaron on 12-29-2024 RBC (Bld) [#/Vol] 3.86 10*6/uL Low 4.6-6.2 [facility] Serum creatinine measurement (mass/volume)Ordered By: Ra Aaron on 12-29-2024 Creatinine [Mass/Vol] 5.00 mg/dL High 0.70-1.20 [facility] Serum glucose measurement (m ass/volume)Ordered By: Ra Aaron on 12-29-2024 Glucose [Mass/Vol] 156 mg/dL High 70-99 [facility] Serum or plasma calcium sneha urement (mass/volume)Ordered By: Ra Aaron on 12-29-2024 Calcium [Mass/Vol] 10.2 mg/dL 7.6-11.0 [facility] Serum or plasma urea nitroge n measurement (mass/volume)Ordered By: Ra Aaron on 12-29-2024 Urea nitrogen [Mass/Vol] 73 mg/dL High 4-19 [facility] Sodium levelOrdered By: Aniket Aaron on 12-29-2024 Sodium [Moles/Vol] 130 mmol/L Low 133-145 [facility] Urinalysis, Completeon 12-29 BACTERIA Normal None Seen [facility] Comment on above: Order Comment: ERAN KRAMEROR TO SPECIFY Result Comment: NO U RINE COLLECTED. PATIENT DEPARTED ED. Performed By: #### L 501.080 #### [facility] [address] [place], [address] BILIRUBIN URINE Normal Negative [facility] Comment on above: Order Comment: ERAN CTOR TO SPECIFY Result Comment: NO U RINE COLLECTED. PATIENT DEPARTED ED. Performed By: #### L 501.080 #### [facility] [address] [place], [address] Clarity (U) Normal Clear [facility] Comment on above: Order Comment: ERAN CTOR TO SPECIFY Result Comment: NO U RINE COLLECTED. PATIENT DEPARTED ED. Performed By: #### L 501.080 #### [facility] [address] [place], [address] Color (U) Normal Yellow [facility] Comment on above: Order Comment: ERAN CTOR TO SPECIFY Result Comment: NO U RINE COLLECTED. PATIENT DEPARTED ED. Performed By: #### L 501.080 #### [facility] [address] [place], [address] EPI,SQUAMOUS Normal 0-5 [facility] Comment on above: Order Comment: COLLE CTOR TO SPECIFY Result Comment: NO U RINE COLLECTED. PATIENT DEPARTED ED. Performed By: #### L 501.080 #### [facility] [address] [place], [address] GLUCOSE, UR Normal Normal [facility] Comment on above: Order Comment: COLLE CTOR TO SPECIFY Result Comment: NO U RINE COLLECTED. PATIENT DEPARTED ED. Performed By: #### L 501.080 #### [facility] [facility] [address] [place], [address] KETONE UR Normal Negative [facility] Comment on above: Order Comment: COLLE CTOR TO SPECIFY Result Comment: NO U RINE COLLECTED. PATIENT DEPARTED ED. Performed By: #### L 501.080 #### [facility] [address] [place], [address] LEUK ESTERASE Normal Negative [facility] Comment on above: Order Comment: COLLE CTOR TO SPECIFY Result Comment: NO U RINE COLLECTED. PATIENT DEPARTED ED. Performed By: #### L 501.080 #### [facility] [address] [place], [address] Mucus Ql (Urine sed) Normal [facility] Comment on above: Order Comment: COLLE CTOR TO SPECIFY Result Comment: NO U RINE COLLECTED. PATIENT DEPARTED ED. Performed By: #### L 501.080 #### [facility] [address] [place], [address] Nitrite Ql (U) Normal Negative [facility] Comment on above: Order Comment: COLLE CTOR TO SPECIFY Result Comment: NO U RINE COLLECTED. PATIENT DEPARTED ED. Performed By: #### L 501.080 #### [facility] [address] [place], [address] OCCULT BLOOD-UR Normal Negative [facility] Comment on above: Order Comment: COLLE CTOR TO SPECIFY Result Comment: NO U RINE COLLECTED. PATIENT DEPARTED ED. Performed By: #### L 501.080 #### [facility] [address] [place], [address] pH UR Normal 5.0 - 8.0 [facility] Comment on above: Order Comment: COLLE CTOR TO SPECIFY Result Comment: NO U RINE COLLECTED. PATIENT DEPARTED ED. Performed By: #### L 501.080 #### [facility] [address] [place], [address] PROT DIPSTX Normal Negative [facility] Comment on above: Order Comment: COLLE CTOR TO SPECIFY Result Comment: NO U RINE COLLECTED. PATIENT DEPARTED ED. Performed By: #### L 501.080 #### [facility] [address] [place], [address] RBC Normal 0-5 [facility] Comment on above: Order Comment: COLLE CTOR TO SPECIFY Result Comment: NO U RINE COLLECTED. PATIENT DEPARTED ED. Performed By: #### L 501.080 #### [facility] [address] [place], [address] SP.GR. DIPSTX Normal 1.002-1.030 [facility] Comment on above: Order Comment: COLLE CTOR TO SPECIFY Result Comment: NO U RINE COLLECTED. PATIENT DEPARTED ED. Performed By: #### L 501.080 #### [facility] [address] [place], [address] UR Preservative Normal [facility] Comment on above: Order Comment: COLLE CTOR TO SPECIFY Result Comment: NO U RINE COLLECTED. PATIENT DEPARTED ED. Performed By: #### L 501.080 #### [facility] [address] [place], [address] UROBILI Normal Normal [facility] Comment on above: Order Comment: COLLE CTOR TO SPECIFY Result Comment: NO U RINE COLLECTED. PATIENT DEPARTED ED. Performed By: #### L 501.080 #### [facility] [address] [place], [address] WBC Normal 0-5 [facility] Comment on above: Order Comment: COLLE CTOR TO SPECIFY Result Comment: NO U RINE COLLECTED. PATIENT DEPARTED ED. Performed By: #### L 501.080 #### [facility] [address] [place], [address] White blood cell (WBC) count Ordered By: Ra Aaron on 12-29-2024 WBC (Bld) [#/Vol] 5.2 10*3/uL 4.4-11.0 [facility] Urine Cultureon 12-25-2024 [facility] Butler cath urine is not recommended. Growth may represent distal urethral douglas. Coag Negative Staph Mcclave Count <1000 Normal [facility] Comment on above: Performed By: #### M 100.638 #### [facility] [address] [place], [address] Urine Cultureon 12-23-2024 URC Culture exhibits no growth. Normal [facility] Comment on above: Performed By: #### L 501.080 #### [facility] [address] [place], [address] Absolute lymphocyte countOrd ered By: Shira Wood on 12-22-2024 Lymphocytes Auto (Unsp spec) [#/Vol] 0.83 10*3/uL 0.83-4.51 [facility] Anion gap in Serum or Plasma Ordered By: Shira Wood on 12-22-2024 Anion gap [Moles/Vol] 17 mmol/L High 5-15 [facility] Automated blood erythrocyte countOrdered By: Shira Wood on 12-22-2024 RBC (Bld) [#/Vol] 3.93 10*6/uL Low 4.6-6.2 [facility] Comment on above: Performed By: #### L 501.080 #### [facility] [address] [place], [address] Automated blood hematocrit ( percentage)Ordered By: Shira Wood on 12-22-2024 Hematocrit (Bld) [Volume fraction] 38.3 % Low 40-54 [facility] Comment on above: Performed By: #### L 501.080 #### [facility] [address] [place], [address] Automated lymphocyte count a s percentage of total leukocytesOrdered By: Shira Wood on 12-22-2024 Lymphocytes/100 WBC Auto (Unsp spec) 13.9 % Low 19-41 [facility] BUN/creatinine ratioOrdered By: Shira Wood on 12-22-2024 Urea nitrogen/Creatinine [Mass ratio] 12.2 mg/mg 10- [facility] Basic Metabolic Profile (BMP )on 12-22-2024 BUN/CRE 12.2 RATIO Normal 10-20 [facility] Comment on above: Performed By: #### L 501.080 #### [facility] [address] [place], [address] GAP 17 High 5-15 [facility] Comment on above: Performed By: #### L 501.080 #### [facility] [address] [place], [address] Potassium [Moles/Vol] 4.1 mmol/L Normal 3.3-5.1 [facility] Comment on above: Performed By: #### L 501.080 #### [facility] [address] [place], [address] Basophil percentageOrdered B y: Shira Wood on 12-22-2024 Basophils/100 WBC (Bld) 0.3 % Normal 0-1 [facility] Comment on above: Performed By: #### L 501.080 #### [facility] [address] [place], [address] Bilirubin Test strip Ql (U)O rdered By: Shira Wood on 12-22-2024 Bilirubin Ql (U) 1 mg/dL High Negative [facility] CBC W/Diff, Automatedon 04-2 Absolute Lymph 0.83 X10 3/uL Normal 0.83-4.51 [facility] Comment on above: Performed By: #### L 501.080 #### [facility] [address] [place], [address] Absolute Neut 4.2 X10 3/uL Normal 2.0-7.7 [facility] Comment on above: Performed By: #### L 501.080 #### [facility] [address] [place], [address] IG% 0.300 Normal 0.0-0.9 [facility] Comment on above: Result Comment: IG% - Immature Granulocytes (promyelocytes, myelocytes and metamyelocytes) > 1% indicates that a LEFT SHIFT is Present. Performed By: #### L 501.080 #### [facility] [address] [place], [address] Lymphocytes/100 WBC (Bld) 13.9 % Low 19-41 [facility] Comment on above: Performed By: #### L 501.080 #### [facility] [address] [place], [address] MCHC (RBC) [Mass/Vol] 32.4 g/dL Normal 32-36 [facility] Comment on above: Performed By: #### L 501.080 #### [facility] [address] [place], [address] Nucleated RBC (Bld) [#/Vol] 0 10*3/uL Normal 0-5 [facility] Comment on above: Performed By: #### L 501.080 #### [facility] [address] [place], [address] Platelet mean volume (Bld) [Entitic vol] 9.9 fL Normal 6.2-12.0 [facility] Comment on above: Performed By: #### L 501.080 #### [facility] [address] [place], [address] RDW SD 59.9 fl High 35.1-43.9 [facility] Comment on above: Performed By: #### L 501.080 #### [facility] [address] [place], [address] Carbon dioxide, total [Moles /volume] in Central venous bloodOrdered By: Shira Wood on 12-22-2024 CO2 [Moles/Vol] 26.0 mmol/L Normal 21.0-32.0 [facility] Comment on above: Performed By: #### L 501.080 #### [facility] [address] [place], [address] Chloride assayOrdered By: Nancy Wood on 12-22-2024 Chloride [Moles/Vol] 90 mmol/L Low 98-108 [facility] Comment on above: Performed By: #### L 501.080 #### [facility] [address] [place], [address] Emergency Department Summary on 12-22-2024 Emergency Department Summary [facility] Records Department [address] [place] [address] Emergency Department Summary 12/22/24 MR#: [id number] Acct: [id number] Name: MAURI QUINONES Rep #: [id number] : 1955 69 From: Shira GAGNON PCP: Dr. Rigoberto Gould MD Status:DEP ER Location: ED Patient was seen and examined with physician assistant director of financial aid Aleshia All components of the history and [...] abdominal pain, nausea, flank pain, and vomiting. [facility] Medical History Paroxysmal atrial fibrillation C. difficile diarrhea Anemia History of GI bleed Pure hypercholesterolemia Ischemic cardiomyopathy Essential hypertension Renal insufficiency Ankylosing spondylitis CAD (coronary artery disease) Overweight (BMI 25.0-29.9) Leg edema Leg swelling Acute systolic heart failure Bradycardia Biliary pleural effusion HTN (hypertension) Ventricular tachyarrhythmia Atherosclerosis of holy cross co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 pectoris Pulmonary HTN Cardiomyopathy Valvular heart disease NSTEMI (non-ST elevated myocardial infarction) CHF (congestive heart failure) Abscess of right foot Diabetes mellitus with neuropathy Gout DM2 (diabetes mellitus, type 2) Home (more content not included)... Normal [facility] Eosinophil percentageOrdered By: Shira Wood on 12-22-2024 Eosinophils/100 WBC (Bld) 2.2 % Normal 0-5 [facility] Comment on above: Performed By: #### L 501.080 #### [facility] [address] [place], [place], [id number] Erythrocyte distribution wid th ratioOrdered By: Shira Wood on 12-22-2024 Erythrocyte distribution width (RBC) [Ratio] 16.8 % High 11.6-14.6 [facility] Comment on above: Performed By: #### L 501.080 #### [facility] [address] [place], [place], [address] Erythrocyte distribution wid th standard deviationOrdered By: Shira Wood on 12-22-2024 Erythrocyte distribution width (RBC) [Ratio] 59.9 fl High 35.1-43.9 [facility] Glomerular filtration rate ( GFR) estimation/1.73 sq m using serum, plasma, or whole bOrdered By: Shira Wood on 12-22-2024 GFR/1.73 sq M.predicted among non-blacks MDRD (S/P/Bld) [Vol rate/Area] 11 mL/min/{1.73_m2} Low >60 [facility] Comment on above: Result Comment: mL/m in/1.73m2 CKD-EPI Creatinine Equation (2020) Performed By: #### L 501.080 #### [facility] [address] [facility] [place], [place], [id number] Hemoglobin measurementOrdere d By: Shira Wood on 12-22-2024 Hemoglobin (Bld) [Mass/Vol] 12.4 g/dL Low 13.0-16.5 [facility] Comment on above: Performed By: #### L 501.080 #### [facility] [address] [place], [address] Immature granulocytes/100 WB C Auto (Bld)Ordered By: Shira Wood on 12-22-2024 Immature granulocytes/100 WBC (Bld) 0.300 % 0.0-0.9 [facility] Ketones Test strip Ql (U)Ord ered By: Shira Wood on 12-22-2024 Ketones Ql (U) 5 mg/dl High Negative [facility] MCV (mean corpuscular volume ) determinationOrdered By: Shira Wood on 12-22-2024 MCV (RBC) [Entitic vol] 97.5 fL High 80-94 [facility] Comment on above: Performed By: #### L 501.080 #### [facility] [address] [facility] [place], [place], [address] Mean corpuscular hemoglobin (MCH) determinationOrdered By: Shira Wood on 12-22-2024 MCH (RBC) [Entitic mass] 31.6 pg Normal 27.0-32.0 [facility] Comment on above: Performed By: #### L 501.080 #### [facility] [address] [place], [place], [address] Monocyte percentageOrdered B y: Shira Wood on 12-22-2024 Monocytes/100 WBC (Bld) 13.9 % High 0-10 [facility] Comment on above: Performed By: #### L 501.080 #### [facility] [address] [place], [place], [address] Mucus LM Ql (Urine sed)Order ed By: Shira Wood on 12-22-2024 Mucus Ql (Urine sed) RARE /hpf [facility] Neutrophil percentageOrdered By: Shira Wood on 12-22-2024 Neutrophils/100 WBC (Bld) 69.4 % Normal 47-70 [facility] Comment on above: Performed By: #### L 501.080 #### [facility] [address] [place], [place], [address] Nitrite Test strip Ql (U)Ord ered By: Shira Wood on 12-22-2024 Nitrite Ql (U) Positive High Negative [facility] Platelet countOrdered By: Nancy Wood on 12-22-2024 Platelets (Bld) [#/Vol] 100 10*3/uL Low 150-450 [facility] Comment on above: Performed By: #### L 501.080 #### [facility] [address] [place], [place], [address] Potassium measurement (mass/ volume)Ordered By: Shira Wood on 12-22-2024 Potassium (Unsp spec) [Mass/Vol] 4.1 mmol/L 3.3-5.1 [facility] Protein Test strip Ql (U)Ord ered By: Shira Wood on 12-22-2024 Protein Ql (U) 100 mg/dl High Negative [facility] Serum creatinine measurement (mass/volume)Ordered By: Shira Wood on 12-22-2024 Creatinine [Mass/Vol] 5.57 mg/dL High 0.70-1.20 [facility] Comment on above: Performed By: #### L 501.080 #### [facility] [address] [place], [address] Serum glucose measurement (m ass/volume)Ordered By: Shira Wood on 12-22-2024 Glucose [Mass/Vol] 152 mg/dL High 70-99 [facility] Comment on above: Performed By: #### L 501.080 #### [facility] [address] [place], [address] Serum or plasma calcium sneha urement (mass/volume)Ordered By: Shira Wood on 12-22-2024 Calcium [Mass/Vol] 10.1 mg/dL Normal 7.6-11.0 [facility] Comment on above: Performed By: #### L 501.080 #### [facility] [address] [place], [address] Serum or plasma urea nitroge n measurement (mass/volume)Ordered By: Shira Wood on 12-22-2024 Urea nitrogen [Mass/Vol] 68 mg/dL High 4-19 [facility] Comment on above: Performed By: #### L 501.080 #### [facility] [address] [place], [address] Sodium levelOrdered By: Jadon Wood on 12-22-2024 Sodium [Moles/Vol] 133 mmol/L Normal 133-145 [facility] Comment on above: Performed By: #### L 501.080 #### [facility] [address] [place], [address] Squamous epithelial cells de tection in urine sediment by light microscopyOrdered By: Shira Wood on 12-22-2024 Epithelial cells.squamous LM Ql (Urine sed) 0-5 SEEN /hpf 0-5 [facility] Urinalysis, Completeon 12-22 Mucus Ql (Urine sed) RARE Normal [facility] Comment on above: Order Comment: COLOR OF URINE MAY AFFECT DIPSTICK RESULTS.CUSTOMER LOGISTICS MANAGER TO SPECIFY Performed By: #### L 501.080 #### [facility] [address] [place], [address] BACTERIA 3+ /hpf Normal None Seen [facility] Comment on above: Order Comment: COLOR OF URINE MAY AFFECT DIPSTICK RESULTS.CUSTOMER LOGISTICS MANAGER TO SPECIFY Performed By: #### L 501.080 #### [facility] [address] [place], [address] EPI,SQUAMOUS 0-5 SEEN Normal 0-5 [facility] Comment on above: Order Comment: COLOR OF URINE MAY AFFECT DIPSTICK RESULTS.CUSTOMER LOGISTICS MANAGER TO SPECIFY Performed By: #### L 501.080 #### [facility] [address] [place], [address] RBC > 100 SEEN Normal 0-5 [facility] Comment on above: Order Comment: COLOR OF URINE MAY AFFECT DIPSTICK RESULTS.CUSTOMER LOGISTICS MANAGER TO SPECIFY Performed By: #### L 501.080 #### [facility] [address] [place], [address] WBC 10-25 SEEN Normal 0-5 [facility] Comment on above: Order Comment: COLOR OF URINE MAY AFFECT DIPSTICK RESULTS.CUSTOMER LOGISTICS MANAGER TO SPECIFY Performed By: #### L 501.080 #### [facility] [address] [place], [address] Urine clarityOrdered By: Luca Wood on 12-22-2024 Clarity (U) Cloudy Clear [facility] Urine color determinationOrd ered By: Shira Wood on 12-22-2024 Color (U) Brown Yellow [facility] Urine cultureOrdered By: Luca Wood on 12-22-2024 Bacteria identified Cx Nom (U) Negative Abnormal [facility] Urine cultureOrdered By: Siomara Nelson on 12-22-2024 Bacteria identified Cx Nom (U) Culture exhibits no growth. [facility] Urine glucose detectionOrder ed By: Shira Wood on 12-22-2024 Glucose Ql (U) Normal mg/dl Normal [facility] Urine leukocyte esterase det ection by dipstickOrdered By: Shira Wood on 12-22-2024 Leukocyte esterase Test strip Ql (U) 100 /ul High Negative [facility] Urine pHOrdered By: Ibrahima Wood on 12-22-2024 pH (U) 5.0 [pH] 5.0 - 8.0 [facility] Urine sediment bacteria coun t by microscopy (number/high power field)Ordered By: Shira Wood on 12-22-2024 Bacteria LM.HPF (Urine sed) [#/Area] 3 /[HPF] None Seen [facility] Urine specific gravity measu rementOrdered By: Shira Wood on 12-22-2024 Specific gravity (U) [Rel density] 1.020 1.002-1.030 [facility] Urine urobilinogen measureme ntOrdered By: Shira Wood on 12-22-2024 Urobilinogen Ql (U) Normal mg/dl Normal [facility] White blood cell (WBC) count Ordered By: Shira Wood on 12-22-2024 WBC (Bld) [#/Vol] 6.0 10*3/uL Normal 4.4-11.0 [facility] Comment on above: Performed By: #### L 501.080 #### [facility] [place], [address] White blood cell countOrdere d By: Shira Wood on 12-22-2024 White blood cell count 10-25 SEEN /hpf 0-5 [facility] CNOVon 12-17-2024 CNOV Office Visit (ORMDNA ) -- MAURI QUINONES ([id number]) 1955 M [facility] Date Time Provider Department 12/17/24 2:30 [...] PAST MEDICAL HISTORY Diagnosis Date Ankylosing spondylitis ([facility]) CAD (coronary artery disease) Cellulitis Chronic combined systolic and diastolic CHF (congestive heart failure) ([facility]) 03/24/2019 CKD (chronic kidney disease) stage 3, GFR 30-59 ml/min ([facility]) 03/24/2019 Constipation Diabetes ([facility]) ESRD (end stage renal disease) ([facility]) Gout History of coronary artery bypass graft [...] NSTEMI (non-ST elevated myocardial infarction) (HCC) 03/12/2017 [facility] admit Osteoarthritis PAST SURGICAL HISTORY Procedure [...] [place] M.D. Department of Orthopaedic Surgery [facility] (more content not included)... Normal [facility] Basic Metabolic Profile (BMP )on 12-14-2024 BUN Normal - [facility] Comment on above: Result Comment: Canc elled via OM: Order cancelled - Patient discharged Performed By: #### L 501.080 #### [facility] [address] [place], [address] BUN/CRE Normal - [facility] Comment on above: Result Comment: Canc elled via OM: Order cancelled - Patient discharged Performed By: #### L 501.080 #### [facility] [address] [place], [address] Calcium Normal 7.6-11.0 [facility] Comment on above: Result Comment: Canc elled via OM: Order cancelled - Patient discharged Performed By: #### L 501.080 #### [facility] [address] [place], [address] CL Normal 98-108 [facility] Comment on above: Result Comment: Canc elled via OM: Order cancelled - Patient discharged Performed By: #### L 501.080 #### [facility] [address] [place], [address] CO2 Normal 21.0-32.0 [facility] Comment on above: Result Comment: Canc elled via OM: Order cancelled - Patient discharged Performed By: #### L 501.080 #### [facility] [address] [place], [address] CREAT,SERUM Normal 0.70-1.20 [facility] Comment on above: Result Comment: Canc elled via OM: Order cancelled - Patient discharged Performed By: #### L 501.080 #### [facility] [address] [place], [address] eGFR Normal >60 [facility] Comment on above: Result Comment: Canc elled via OM: Order cancelled - Patient discharged Performed By: #### L 501.080 #### [facility] [address] [place], [address] GAP Normal 5-15 [facility] Comment on above: Result Comment: Canc elled via OM: Order cancelled - Patient discharged Performed By: #### L 501.080 #### [facility] [address] [place], [address] GLU Normal 70-99 [facility] Comment on above: Result Comment: Canc elled via OM: Order cancelled - Patient discharged Performed By: #### L 501.080 #### [facility] [address] [place], [address] Potassium Normal 3.3-5.1 [facility] Comment on above: Result Comment: Canc elled via OM: Order cancelled - Patient discharged Performed By: #### L 501.080 #### [facility] [address] [place], [address] Basic Metabolic Profile (BMP) Normal 133-145 [facility] Comment on above: Result Comment: Canc elled via OM: Order cancelled - Patient discharged Performed By: #### L 501.080 #### [facility] [address] [place], [address] CBC W/Diff, Automatedon 04-2 0-2024 Absolute Neut Normal 2.0-7.7 [facility] Comment on above: Result Comment: Canc elled via OM: Order cancelled - Patient discharged Performed By: #### L 501.080 #### [facility] [address] [place], [address] HCT Normal 40-54 [facility] Comment on above: Result Comment: Canc elled via OM: Order cancelled - Patient discharged Performed By: #### L 501.080 #### [facility] [address] [place], [address] HGB Normal 13.0-16.5 [facility] Comment on above: Result Comment: Canc elled via OM: Order cancelled - Patient discharged Performed By: #### L 501.080 #### [facility] [address] [place], [address] MCH Normal 27.0-32.0 [facility] Comment on above: Result Comment: Canc elled via OM: Order cancelled - Patient discharged Performed By: #### L 501.080 #### [facility] [address] [place], [address] MCHC Normal 32-36 [facility] Comment on above: Result Comment: Canc elled via OM: Order cancelled - Patient discharged Performed By: #### L 501.080 #### [facility] [address] [place], [address] MCV Normal 80-94 [facility] Comment on above: Result Comment: Canc elled via OM: Order cancelled - Patient discharged Performed By: #### L 501.080 #### [facility] [address] [place], [address] NEUT% Normal 47-70 [facility] Comment on above: Result Comment: Canc elled via OM: Order cancelled - Patient discharged Performed By: #### L 501.080 #### [facility] [address] [place], [address] PLT Normal 150-450 [facility] Comment on above: Result Comment: Canc elled via OM: Order cancelled - Patient discharged Performed By: #### L 501.080 #### [facility] [address] [place], [address] RBC Normal 4.6-6.2 [facility] Comment on above: Result Comment: Canc elled via OM: Order cancelled - Patient discharged Performed By: #### L 501.080 #### [facility] Laboratory [address] [place], [address] RDW CV Normal 11.6-14.6 [facility] Comment on above: Result Comment: Canc elled via OM: Order cancelled - Patient discharged Performed By: #### L 501.080 #### [facility] [address] [place], [address] RDW SD Normal 35.1-43.9 [facility] Comment on above: Result Comment: Canc elled via OM: Order cancelled - Patient discharged Performed By: #### L 501.080 #### [facility] [address] [place], [address] WBC Normal 4.4-11.0 [facility] Comment on above: Result Comment: Canc elled via OM: Order cancelled - Patient discharged Performed By: #### L 501.080 #### [facility] [address] [place], [address] Absolute lymphocyte countOrd ered By: Sukumar Restrepo on 12-13-2024 Lymphocytes Auto (Unsp spec) [#/Vol] 0.80 10*3/uL Low 0.83-4.51 [facility] Absolute neutrophil countOrd ered By: Sukumar Restrepo on 12-13-2024 Neutrophils (Bld) [#/Vol] 5.4 10*3/uL 2.0-7.7 [facility] Anion gap in Serum or Plasma Ordered By: Sukumar Restrepo on 12-13-2024 Anion gap [Moles/Vol] 19 mmol/L High 5-15 [facility] Automated lymphocyte count a s percentage of total leukocytesOrdered By: Sukumar Restrepo on 12-13-2024 Lymphocytes/100 WBC Auto (Unsp spec) 10.5 % Low 19-41 [facility] BUN/creatinine ratioOrdered By: Sukumar Lauro on 12-13-2024 Urea nitrogen/Creatinine [Mass ratio] 13.2 mg/mg 10-20 [facility] Basic Metabolic Profile (BMP )on 12-13-2024 BUN/CRE 13.2 RATIO Normal 10-20 [facility] Comment on above: Performed By: #### L 509.7001 #### [facility] [address] [place], [address] Calcium [Mass/Vol] 9.4 mg/dL Normal 7.6-11.0 [facility] Comment on above: Performed By: #### L 509.7001 #### [facility] [address] [place], [address] Chloride [Moles/Vol] 93 mmol/L Low 98-108 [facility] Comment on above: Performed By: #### L 509.7001 #### [facility] [address] [place], [address] CO2 [Moles/Vol] 21.9 mmol/L Normal 21.0-32.0 [facility] Comment on above: Performed By: #### L 509.7001 #### [facility] [address] [place], [address] Creatinine [Mass/Vol] 6.56 mg/dL High 0.70-1.20 [facility] Comment on above: Performed By: #### L 509.7001 #### [facility] [address] [place], [address] ECRCL 11.28 ml/min Low 50-250 [facility] Comment on above: Performed By: #### L 509.7001 #### [facility] [address] [place], [address] GAP 19 High 5-15 [facility] Comment on above: Performed By: #### L 509.7001 #### [facility] [address] [place], [address] GFR/1.73 sq M.predicted among non-blacks MDRD (S/P/Bld) [Vol rate/Area] 9 mL/min/{1.73_m2} Low >60 [facility] Comment on above: Result Comment: mL/m in/1.73m2 CKD-EPI Creatinine Equation (2020) Performed By: #### L 509.7001 #### [facility] [address] [place], [address] Glucose [Mass/Vol] 59 mg/dL Low 70-99 [facility] Comment on above: Performed By: #### L 509.7001 #### [facility] [address] [place], [address] Potassium [Moles/Vol] 4.4 mmol/L Normal 3.3-5.1 [facility] Comment on above: Performed By: #### L 509.7001 #### [facility] [address] [place], [address] Sodium [Moles/Vol] 134 mmol/L Normal 133-145 [facility] Comment on above: Performed By: #### L 509.7001 #### [facility] [address] [place], [address] Urea nitrogen [Mass/Vol] 87 mg/dL High -19 [facility] Comment on above: Performed By: #### L 509.7001 #### [facility] [address] [place], [address] Basophil percentageOrdered B y: Sukumar Restrepo on 12-13-2024 Basophils/100 WBC (Bld) 0.5 % 0-1 [facility] Bedside Glucoseon 12-13-2024 FINGERSTICK GLU 77 mg/dL Normal 74-106 [facility] Comment on above: Result Comment: BONI GEMENT OF PATIENT CARE PER NURSING PROTOCOL Performed By: #### L 501.080 #### [facility] [address] [place], [address] FINGERSTICK GLU 50 mg/dL Low 74-106 [facility] Comment on above: Result Comment: BONI GEMENT OF PATIENT CARE PER NURSING PROTOCOL Performed By: #### L 501.080 #### [facility] [address] [place], [address] FINGERSTICK GLU 173 mg/dL High 74-106 [facility] Comment on above: Result Comment: BONI GEMENT OF PATIENT CARE PER NURSING PROTOCOL Performed By: #### L 501.080 #### [facility] [address] [place], [address] FINGERSTICK GLU 83 mg/dL Normal 74-106 [facility] Comment on above: Result Comment: BONI GEMENT OF PATIENT CARE PER NURSING PROTOCOL Performed By: #### M 100.638 #### [facility] [address] [place], [address] CBC W/Diff, Automatedon 04- Absolute Lymph 0.80 X10 3/uL Low 0.83-4.51 [facility] Comment on above: Performed By: #### L 501.080 #### [facility] [address] [place], [address] Absolute Neut 5.4 X10 3/uL Normal 2.0-7.7 [facility] Comment on above: Performed By: #### L 501.080 #### [facility] [address] [place], [address] Basophils/100 WBC (Bld) 0.5 % Normal 0-1 [facility] Comment on above: Performed By: #### L 501.080 #### [facility] [address] [place], [address] Eosinophils/100 WBC (Bld) 2.1 % Normal 0-5 [facility] Comment on above: Performed By: #### L 501.080 #### [facility] [address] [place], [address] Erythrocyte distribution width (RBC) [Ratio] 17.4 % High 11.6-14.6 [facility] Comment on above: Performed By: #### L 501.080 #### [facility] [address] [place], [address] Hematocrit (Bld) [Volume fraction] 36.6 % Low 40-54 [facility] Comment on above: Performed By: #### L 501.080 #### [facility] [address] [place], [address] Hemoglobin (Bld) [Mass/Vol] 12.1 g/dL Low 13.0-16.5 [facility] Comment on above: Performed By: #### L 501.080 #### [facility] [address] [place], [address] IG% 0.300 Normal 0.0-0.9 [facility] Comment on above: Result Comment: IG% - Immature Granulocytes (promyelocytes, myelocytes and metamyelocytes) > 1% indicates that a LEFT SHIFT is Present. Performed By: #### L 501.080 #### [facility] [address] [place], [address] Lymphocytes/100 WBC (Bld) 10.5 % Low 19-41 [facility] Comment on above: Performed By: #### L 501.080 #### [facility] [address] [place], [address] MCH (RBC) [Entitic mass] 31.4 pg Normal 27.0-32.0 [facility] Comment on above: Performed By: #### L 501.080 #### [facility] [address] [place], [address] MCHC (RBC) [Mass/Vol] 33.1 g/dL Normal 32-36 [facility] Comment on above: Performed By: #### L 501.080 #### [facility] [address] [place], [address] MCV (RBC) [Entitic vol] 95.1 fL High 80-94 [facility] Comment on above: Performed By: #### L 501.080 #### [facility] [address] [place], [address] Monocytes/100 WBC (Bld) 15.1 % High 0-10 [facility] Comment on above: Performed By: #### L 501.080 #### [facility] [address] [place], [address] Neutrophils/100 WBC (Bld) 71.5 % High 47-70 [facility] Comment on above: Performed By: #### L 501.080 #### [facility] [address] [place], [address] Nucleated RBC (Bld) [#/Vol] 0 10*3/uL Normal 0-5 [facility] Comment on above: Performed By: #### L 501.080 #### [facility] [address] [place], [address] Platelet mean volume (Bld) [Entitic vol] 9.7 fL Normal 6.2-12.0 [facility] Comment on above: Performed By: #### L 501.080 #### [facility] [address] [place], [address] Platelets (Bld) [#/Vol] 146 10*3/uL Low 150-450 [facility] Comment on above: Performed By: #### L 501.080 #### [facility] [address] [place], [address] RBC (Bld) [#/Vol] 3.85 10*6/uL Low 4.6-6.2 [facility] Comment on above: Performed By: #### L 501.080 #### [facility] [address] [place], [address] RDW SD 58.9 fl High 35.1-43.9 [facility] Comment on above: Performed By: #### L 501.080 #### [facility] [address] [place], [address] WBC (Bld) [#/Vol] 7.6 10*3/uL Normal 4.4-11.0 [facility] Comment on above: Performed By: #### L 501.080 #### [facility] [address] [place], [address] Carbon dioxide, total [Moles /volume] in Central venous bloodOrdered By: Sukumar Restrepo on 12-13-2024 CO2 [Moles/Vol] 21.9 mmol/L 21.0-32.0 [facility] Chloride assayOrdered By: Dulce Restrepo on 12-13-2024 Chloride [Moles/Vol] 93 mmol/L Low 98-108 [facility] Discharge Instructionon 11-25 Discharge Instruction [facility] Medical Records Department [address] [place] [address] Instructions for Home/Discharge Instructions 12/13/24 0935 MR#: [id number] Acct: [id number] Name: MAURI QUINONES Rep #: [id number] : 1955 69 From: Sukumar Restrepo MD [...] Dr. Mary Jo Granados MD; Dr. Nata Jakcson MD; Dr. Rigoberto Gould MD Signed Normal [facility] Eosinophil percentageOrdered By: Sukumar Restrepo on 12-13-2024 Eosinophils/100 WBC (Bld) 2.1 % 0-5 [facility] Erythrocyte distribution wid th (RBC) [Ratio]Ordered By: Sukumar Restrepo on 12-13-2024 Erythrocyte distribution width (RBC) [Entitic vol] 58.9 fL High 35.1-43.9 [facility] Erythrocyte distribution wid th ratioOrdered By: Sukmuar Restrepo on 12-13-2024 Erythrocyte distribution width (RBC) [Ratio] 17.4 % High 11.6-14.6 [facility] Erythrocyte distribution wid th standard deviationOrdered By: Sukumar Restrepo on 12-13-2024 Erythrocyte distribution width (RBC) [Ratio] 58.9 fl High 35.1-43.9 [facility] Estimation of creatinine wayne aranceOrdered By: Sukumar Restrepo on 12-13-2024 Estimated Creatinine Clearance Calc 11.28 ml/min Low 50-250 [facility] GFR/1.73 sq M.predicted corazon g non-blacks MDRD (S/P/Bld) [Vol rate/Area]Ordered By: Sukumar Restrepo on 12-13-2024 Estimated GFR (MDRD) Non-Af Amer 9 Low >60 [facility] Comment on above: mL/min/1.73m2 CKD-EP I Creatinine Equation (2020) Glomerular filtration rate ( GFR) estimation/1.73 sq m using serum, plasma, or whole bOrdered By: Sukumar Restrepo on 12-13-2024 GFR/1.73 sq M.predicted among non-blacks MDRD (S/P/Bld) [Vol rate/Area] 9 mL/min/{1.73_m2} Low >60 [facility] deOrdered By: Sukumar Restrepo on 12-13-2024 Bedside Glucose (Misc Panel) 77 mg/dL 74-106 [facility] Comment on above: MANAGEMENT OF PATIEN T CARE PER NURSING PROTOCOL Glucose [Mass/Vol] 77 mg/dL 74-106 [facility] Hematocrit Auto (Bld) [Volum e fraction]Ordered By: Sukumar Restrepo on 12-13-2024 Hematocrit (Bld) [Volume fraction] 36.6 % Low 40-54 [facility] Hemoglobin measurementOrdere d By: Sukumar Restrepo on 12-13-2024 Hemoglobin (Bld) [Mass/Vol] 12.1 g/dL Low 13.0-16.5 [facility] Immature granulocytes/100 WB C Auto (Bld)Ordered By: Sukumar Restrepo on 12-13-2024 Immature granulocytes/100 WBC (Bld) 0.300 % 0.0-0.9 [facility] Comment on above: IG% - Immature Granu locytes (promyelocytes, myelocytes and metamyelocytes) > 1% indicates that a LEFT SHIFT is Present. Lymphocytes Auto (Unsp spec) [#/Vol]Ordered By: Sukumar Restrepo on 12-13-2024 Lymphocytes (Bld) [#/Vol] 0.80 10*3/uL Low 0.83-4.51 [facility] Lymphocytes/100 WBC Auto (Un sp spec)Ordered By: Sukumar Restrepo on 12-13-2024 Lymphocytes/100 WBC (Bld) 10.5 % Low 19-41 [facility] MCV (mean corpuscular volume ) determinationOrdered By: Sukumar Restrepo on 12-13-2024 MCV (RBC) [Entitic vol] 95.1 fL High 80-94 [facility] Mean corpuscular hemoglobin (MCH) determinationOrdered By: Sukumar Restrepo on 12-13-2024 MCH (RBC) [Entitic mass] 31.4 pg 27.0-32.0 [facility] Mean corpuscular hemoglobin concentration (MCHC) determinationOrdered By: Sukumar Restrepo on 12-13-2024 MCHC (RBC) [Mass/Vol] 33.1 g/dL 32-36 [facility] Mean platelet volume determi nationOrdered By: Sukumar Restrepo on 12-13-2024 Platelet mean volume (Bld) [Entitic vol] 9.7 fL 6.2-12.0 [facility] Monocyte percentageOrdered B y: Sukumar Restrepo on 12-13-2024 Monocytes/100 WBC (Bld) 15.1 % High 0-10 [facility] Neutrophil percentageOrdered By: Sukumar Restrepo on 12-13-2024 Neutrophils/100 WBC (Bld) 71.5 % High 47-70 [facility] Nucleated red blood cell per centageOrdered By: Sukumar Restrepo on 12-13-2024 Nucleated RBC/100 WBC (Bld) [Ratio] 0 % 0-5 [facility] Platelet countOrdered By: Dulce Restrepo on 12-13-2024 Platelets (Bld) [#/Vol] 146 10*3/uL Low 150-450 [facility] Potassium (Unsp spec) [Mass/ Vol]Ordered By: Sukumar Restrepo on 12-13-2024 Potassium [Moles/Vol] 4.4 mmol/L 3.3-5.1 [facility] Potassium measurement (mass/ volume)Ordered By: Sukumar Restrepo on 12-13-2024 Potassium (Unsp spec) [Mass/Vol] 4.4 mmol/L 3.3-5.1 [facility] RBC Auto (Bld) [#/Vol]Ordere d By: Sukumar Restrepo on 12-13-2024 RBC (Bld) [#/Vol] 3.85 10*6/uL Low 4.6-6.2 [facility] Serum creatinine measurement (mass/volume)Ordered By: Sukumar Restrepo on 12-13-2024 Creatinine [Mass/Vol] 6.56 mg/dL High 0.70-1.20 [facility] Serum glucose measurement (m ass/volume)Ordered By: Sukumar Restrepo on 12-13-2024 Glucose [Mass/Vol] 59 mg/dL Low 70-99 [facility] Serum or plasma calcium sneha urement (mass/volume)Ordered By: Sukumar Restrepo on 12-13-2024 Calcium [Mass/Vol] 9.4 mg/dL 7.6-11.0 [facility] Serum or plasma urea nitroge n measurement (mass/volume)Ordered By: Sukumar Restrepo on 12-13-2024 Urea nitrogen [Mass/Vol] 87 mg/dL High 4-19 [facility] Sodium levelOrdered By: Gurjit Restrepo on 12-13-2024 Sodium [Moles/Vol] 134 mmol/L 133-145 [facility] White blood cell (WBC) count Ordered By: Sukumar Restrepo on 12-13-2024 WBC (Bld) [#/Vol] 7.6 10*3/uL 4.4-11.0 [facility] Basic Metabolic Profile (BMP )on 12-12-2024 BUN/CRE 15.6 RATIO Normal 10-20 [facility] Comment on above: Performed By: #### L 501.080 #### [facility] [address] [place], [address] Calcium [Mass/Vol] 9.6 mg/dL Normal 7.6-11.0 [facility] Comment on above: Performed By: #### L 501.080 #### [facility] [address] [place], [address] Chloride [Moles/Vol] 86 mmol/L Low 98-108 [facility] Comment on above: Performed By: #### L 501.080 #### [facility] [address] [place], [address] CO2 [Moles/Vol] 15.9 mmol/L Low 21.0-32.0 [facility] Comment on above: Performed By: #### L 501.080 #### [facility] [address] [place], [address] Creatinine [Mass/Vol] 8.40 mg/dL Invalid Interpretation Code 0.70-1.20 [facility] Comment on above: Result Comment: Crit ical Result(s) Called at 0113: by: NBURNS TO MGROVE??Results read back by same. Performed By: #### L 501.080 #### [facility] [address] [place], [address] ECRCL 8.81 ml/min Invalid Interpretation Code 50-250 [facility] Comment on above: Performed By: #### L 501.080 #### [facility] [address] [place], [address] GAP 28 High 5-15 [facility] Comment on above: Performed By: #### L 501.080 #### [facility] [address] [place], [address] GFR/1.73 sq M.predicted among non-blacks MDRD (S/P/Bld) [Vol rate/Area] 6 mL/min/{1.73_m2} Low >60 [facility] Comment on above: Result Comment: mL/m in/1.73m2 CKD-EPI Creatinine Equation (2020) Performed By: #### L 501.080 #### [facility] [address] [place], [address] Glucose [Mass/Vol] 93 mg/dL Normal 70-99 [facility] Comment on above: Performed By: #### L 501.080 #### [facility] [address] [place], [address] Potassium [Moles/Vol] 5.4 mmol/L High 3.3-5.1 [facility] Comment on above: Performed By: #### L 501.080 #### [facility] [address] [place], [address] Sodium [Moles/Vol] 129 mmol/L Low 133-145 [facility] Comment on above: Performed By: #### L 501.080 #### [facility] [address] [place], [address] Urea nitrogen [Mass/Vol] 131 mg/dL Invalid Interpretation Code 4-19 [facility] Comment on above: Result Comment: Crit ical Result(s) Called at 0113: by: NBURNS TO MGROVE??Results read back by same. Performed By: #### L 501.080 #### [facility] [address] [place], [address] Bedside Glucoseon 12-12-2024 FINGERSTICK GLU 79 mg/dL Normal 74-106 [facility] Comment on above: Result Comment: BONI GEMENT OF PATIENT CARE PER NURSING PROTOCOL Performed By: #### L 501.080 #### [facility] [address] [place], [address] FINGERSTICK GLU 131 mg/dL High 74-106 [facility] Comment on above: Result Comment: BONI GEMENT OF PATIENT CARE PER NURSING PROTOCOL Performed By: #### L 501.080 #### [facility] [address] [place], [address] FINGERSTICK GLU 64 mg/dL Low 74-106 [facility] Comment on above: Result Comment: BONI GEMENT OF PATIENT CARE PER NURSING PROTOCOL Performed By: #### M 100.638 #### [facility] [address] [place], [address] FINGERSTICK GLU 61 mg/dL Low 74-106 [facility] Comment on above: Result Comment: BONI GEMENT OF PATIENT CARE PER NURSING PROTOCOL Performed By: #### L 509.7001 #### [facility] [address] [place], [address] FINGERSTICK GLU 71 mg/dL Low 74-106 [facility] Comment on above: Result Comment: BONI GEMENT OF PATIENT CARE PER NURSING PROTOCOL Performed By: #### L 501.080 #### [facility] [address] [place], [address] FINGERSTICK GLU 63 mg/dL Low 74-106 [facility] Comment on above: Result Comment: BONI GEMENT OF PATIENT CARE PER NURSING PROTOCOL Performed By: #### L 501.080 #### [facility] [address] [place], [address] FINGERSTICK GLU 114 mg/dL High 74-106 [facility] Comment on above: Result Comment: BONI GEMENT OF PATIENT CARE PER NURSING PROTOCOL Performed By: #### M 100.638 #### [facility] [address] [place], [address] FINGERSTICK GLU 75 mg/dL Normal 74-106 [facility] Comment on above: Result Comment: BONI GEMENT OF PATIENT CARE PER NURSING PROTOCOL Performed By: #### L 501.080 #### [facility] [address] [place], [address] FINGERSTICK GLU 133 mg/dL High 74-106 [facility] Comment on above: Result Comment: BONI GEMENT OF PATIENT CARE PER NURSING PROTOCOL Performed By: #### L 501.080 #### [facility] [address] [place], [address] FINGERSTICK GLU 89 mg/dL Normal 74-106 [facility] Comment on above: Result Comment: BONI GEMENT OF PATIENT CARE PER NURSING PROTOCOL Performed By: #### L 509.7001 #### [facility] [address] [place], [address] Bilirubin, totalOrdered By: Mary Jo Granados on 12-12-2024 Bilirubin [Mass/Vol] 0.93 mg/dL 0.00-1.30 [facility] CBC W/Diff, Automatedon 11-25 Absolute Lymph 0.69 X10 3/uL Low 0.83-4.51 [facility] Comment on above: Performed By: #### M 100.638 #### [facility] [address] [place], [address] Absolute Neut 6.2 X10 3/uL Normal 2.0-7.7 [facility] Comment on above: Performed By: #### M 100.638 #### [facility] [address] [place], [address] Basophils/100 WBC (Bld) 0.4 % Normal 0-1 [facility] Comment on above: Performed By: #### M 100.638 #### [facility] [address] [place], [address] Eosinophils/100 WBC (Bld) 0.9 % Normal 0-5 [facility] Comment on above: Performed By: #### M 100.638 #### [facility] [address] [place], [address] Erythrocyte distribution width (RBC) [Ratio] 16.8 % High 11.6-14.6 [facility] Comment on above: Performed By: #### M 100.638 #### [facility] [address] [place], [address] Hematocrit (Bld) [Volume fraction] 33.9 % Low 40-54 [facility] Comment on above: Performed By: #### M 100.638 #### [facility] [address] [place], [address] Hemoglobin (Bld) [Mass/Vol] 11.8 g/dL Low 13.0-16.5 [facility] Comment on above: Performed By: #### M 100.638 #### [facility] [address] [place], [address] IG% 0.500 Normal 0.0-0.9 [facility] Comment on above: Result Comment: IG% - Immature Granulocytes (promyelocytes, myelocytes and metamyelocytes) > 1% indicates that a LEFT SHIFT is Present. Performed By: #### M 100.638 #### [facility] [address] [place], [address] Lymphocytes/100 WBC (Bld) 8.4 % Low 19-41 [facility] Comment on above: Performed By: #### M 100.638 #### [facility] [address] [place], [address] MCH (RBC) [Entitic mass] 32.0 pg Normal 27.0-32.0 [facility] Comment on above: Performed By: #### M 100.638 #### [facility] [address] [place], [address] MCHC (RBC) [Mass/Vol] 34.8 g/dL Normal 32-36 [facility] Comment on above: Performed By: #### M 100.638 #### [facility] [address] [place], [address] MCV (RBC) [Entitic vol] 91.9 fL Normal 80-94 [facility] Comment on above: Performed By: #### M 100.638 #### [facility] [address] [place], [address] Monocytes/100 WBC (Bld) 14.7 % High 0-10 [facility] Comment on above: Performed By: #### M 100.638 #### [facility] [address] [place], [address] Neutrophils/100 WBC (Bld) 75.1 % High 47-70 [facility] Comment on above: Performed By: #### M 100.638 #### [facility] [address] [place], [address] Nucleated RBC (Bld) [#/Vol] 0 10*3/uL Normal 0-5 [facility] Comment on above: Performed By: #### M 100.638 #### [facility] [address] [place], [address] Platelet mean volume (Bld) [Entitic vol] 10.3 fL Normal 6.2-12.0 [facility] Comment on above: Performed By: #### M 100.638 #### [facility] [address] [place], [address] Platelets (Bld) [#/Vol] 128 10*3/uL Low 150-450 [facility] Comment on above: Performed By: #### M 100.638 #### [facility] [address] [place], [address] RBC (Bld) [#/Vol] 3.69 10*6/uL Low 4.6-6.2 [facility] Comment on above: Performed By: #### M 100.638 #### [facility] [address] [place], [address] RDW SD 55.1 fl High 35.1-43.9 [facility] Comment on above: Performed By: #### M 100.638 #### [facility] [address] [place], [address] WBC (Bld) [#/Vol] 8.2 10*3/uL Normal 4.4-11.0 [facility] Comment on above: Performed By: #### M 100.638 #### [facility] [address] [place], [address] Calculated very low density lipoprotein (VLDL) cholesterol measurementOrdered By: Mary Jo Granados on 12-12-2024 Calculated very low density lipoprotein (VLDL) cholesterol measurement 16 mg/dL [facility] VLDL Cholesterol 16 mg/dL - [facility] Comprehensive Metabolic Prof ilon 12-12-2024 Albumin [Mass/Vol] 3.6 g/dL Normal 3.4-4.8 [facility] Comment on above: Performed By: #### L 501.080 #### [facility] [address] [place], [address] Albumin/Globulin [Mass ratio] 1.2 {ratio} Normal 0.9-2.4 [facility] Comment on above: Performed By: #### L 501.080 #### [facility] [address] [place], [address] ALK PHOS 171 U/L High 40-129 [facility] Comment on above: Performed By: #### L 501.080 #### [facility] [address] [place], [address] ALT [Catalytic activity/Vol] 18 U/L Normal <=46 [facility] Comment on above: Performed By: #### L 501.080 #### [facility] [address] [place], [address] AST [Catalytic activity/Vol] 32 U/L Normal <=37 [facility] Comment on above: Performed By: #### L 501.080 #### [facility] [address] [place], [address] Bilirubin [Mass/Vol] 0.93 mg/dL Normal 0.00-1.30 [facility] Comment on above: Performed By: #### L 501.080 #### [facility] [address] [place], [address] BUN/CRE 14.9 RATIO Normal 10-20 [facility] Comment on above: Performed By: #### L 501.080 #### [facility] [address] [place], [address] Calcium [Mass/Vol] 9.3 mg/dL Normal 7.6-11.0 [facility] Comment on above: Performed By: #### L 501.080 #### [facility] [address] [place], [address] Chloride [Moles/Vol] 86 mmol/L Low 98-108 [facility] Comment on above: Performed By: #### L 501.080 #### [facility] [address] [place], [address] CO2 [Moles/Vol] 17.3 mmol/L Low 21.0-32.0 [facility] Comment on above: Performed By: #### L 501.080 #### [facility] [address] [place], [address] Creatinine [Mass/Vol] 8.32 mg/dL Invalid Interpretation Code 0.70-1.20 [facility] Comment on above: Result Comment: Crit ical Result(s) Called at: 0721 by:??[facility] Results read back by same. Performed By: #### L 501.080 #### [facility] [address] [place], [address] ECRCL 8.90 ml/min Invalid Interpretation Code 50-250 [facility] Comment on above: Performed By: #### L 501.080 #### [facility] [address] [place], [address] GAP 27 High 5-15 [facility] Comment on above: Performed By: #### L 501.080 #### [facility] [address] [place], [address] GFR/1.73 sq M.predicted among non-blacks MDRD (S/P/Bld) [Vol rate/Area] 6 mL/min/{1.73_m2} Low >60 [facility] Comment on above: Result Comment: mL/m in/1.73m2 CKD-EPI Creatinine Equation (2020) Performed By: #### L 501.080 #### [facility] [address] [place], [address] Globulin (S) [Mass/Vol] 2.9 g/dL Normal 2.2-4.2 [facility] Comment on above: Performed By: #### L 501.080 #### [facility] [address] [place], [address] Glucose [Mass/Vol] 68 mg/dL Low 70-99 [facility] Comment on above: Performed By: #### L 501.080 #### [facility] [address] [place], [address] Potassium [Moles/Vol] 5.3 mmol/L High 3.3-5.1 [facility] Comment on above: Performed By: #### L 501.080 #### [facility] [address] [place], [address] Sodium [Moles/Vol] 130 mmol/L Low 133-145 [facility] Comment on above: Performed By: #### L 501.080 #### [facility] [address] [place], [address] T PROT 6.5 g/dL Normal 5.9-8.4 [facility] Comment on above: Performed By: #### L 501.080 #### [facility] [address] [place], [address] Urea nitrogen [Mass/Vol] 124 mg/dL Invalid Interpretation Code 419 [facility] Comment on above: Result Comment: Crit ical Result(s) Called at: 0721 by:??[facility] Results read back by same. Performed By: #### L 501.080 #### [facility] [address] [place], [address] Consultation - Nephrologyon 12-12-2024 Consultation - Nephrology [facility] Medical Records Department [address] [place] [address] Consultation - Nephrology 12/12/24 0935 MR#: [id number] Acct: [id number] Name: MAURI QUINONES Rep #: [id number] : 1955 69 From: Lauren Mcintyre MD PCP: Dr. Rigoberto Gould MD Status:ADM IN [id number] Assessment Plan Assessment/Plan (1) End-stage renal disease [...] dialysis management. ESRD. Patient usually dialyzes at [facility] on TTS schedule. Patient had missed 2 [...] some urine, and there is no LUTS. [facility] Medical History C. difficile diarrhea Anemia History of GI bleed Pure hypercholesterolemia Ischemic cardiomyopathy Essential hypertension Renal insufficiency Ankylosing spondylitis CAD (coronary artery disease) Overweight (BMI 25.0-29.9) Leg edema Leg swelling Acute systolic heart failure Bradycardia Biliary pleural effusion HTN (hypertension) Ventricular tachyarrhythmia Atherosclerosis of holy cross co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 pectoris Pulmonary HTN Cardiomyopathy [...] History Hist (more content not included)... Normal [facility] Echocardiogram study reportO rdered By: José Miguel Nunez on 12-12-2024 Study report [facility] [address] [place] [address] Echo Complete 12/12/24 1441 MR#: [id number] Acct: [id number] Name: MAURI QUINONES Rep #:[id number] : 1955 69 From: José Miguel Hansen Attending Dr: Dr. Sukumar Restrepo MD Status: ADM IN Ordering Dr: Mary Jo Granados MD Date: 12/11/24 Location: U Sex: M C Admitted: 12/11/24 Reason For [...] Dictated: 12/12/24 1441 Date Transcribed: 12/12/24 153 Drawing Checker: Signed [facility] Work Phone: Electrocardiogram reportOrde red By: Jensen Claire on 12-12-2024 EKG study [facility] [address] [place] [address] 12 Lead EKG 12/11/24 1535 MR#: [id number] Acct: [id number] Name: MAURI QUINONES Rep #:[id number] : 1955 69 From: Jensen karimi MD Attending Dr: Dr. Sukumar eRstrepo MD Status: ADM IN Ordering Dr: Rafa Felder MD Date: 12/11 Location: [facility] Sex: M C Admitted: 12/11/24 Test Reason : Blood Pressure : */* mmHG Vent. Rate : 89 BPM Atrial Rate : * BPM P-R Int : * ms QRS Dur : 162 ms QT Int : 428 ms P-R-T Axes : * 240 72 degrees QTcB Int : 520 ms Atrial fibrillation Right bundle branch block Abnormal ECG Cannot rule out anterior MT-old Confirmed by Jensen Claire ([id number]), movie editor BRYCE DIMAS ([id number]) on 512:44:28 PM Referred By: Confirmed By: Jensen Claire 12/12/24 1244 Date _ Jensen Claire MD CC: Dr. Sukumar Restrepo MD; Dr. Rafa Felder MD; Dr. Rigoberto Gould MD ~ Signed [facility] Work Phone: LDL calc ser/plasOrdered By: Mary Jo Granados on 12-12-2024 Cholesterol in LDL [Mass/Vol] 97 mg/dL [facility] LDL Cholesterol, Calculated 97 mg/dL [facility] Comment on above: Uabxjrvrvu=508-938 m g/dL & Higher Lcrh=685 mg/dL or greater Laboratory - Chemistry and C hemistry - challengeOrdered By: Mary Jo Granados on 12-12-2024 AST [Catalytic activity/Vol] 32 U/L <38 [facility] Lipid Profileon 12-12-2024 CHOL:HDL 4.12 Normal [facility] Comment on above: Performed By: #### M 100.638 #### [facility] [address] [place], [place], [id number] ([phone]) Cholesterol [Mass/Vol] 149 mg/dL Normal <=200 [facility] Comment on above: Result Comment: Chol esterol level, Desirable <200 mg/dL Borderline high cholesterol 200-239 mg/dL High cholesterol >=240 mg/dL Recommendations of the NCEP Adult Treatment Panel for the following risk-cutoff thresholds for the [place] population. Performed By: #### M 100.638 #### [facility] [address] [place], [place], [id number] ([phone]) Cholesterol in HDL [Mass/Vol] 36 mg/dL Low [facility] Comment on above: Result Comment: Olena onal Cholesterol Education Program (NCEP) guidelines: <40 mg/dL: Low HDL-cholesterol (major risk factor for CHD) >= 60 mg/dL: High HDL-cholesterol (negative risk factor for CHD) HDL-cholesterol is affected by a number of factors, e.g. smoking, exercise, hormones, sex and age. Performed By: #### M 100.638 #### [facility] [address] [place], [place], [id number] (837) Cholesterol in LDL [Mass/Vol] 97 mg/dL Normal [facility] Comment on above: Result Comment: Bord cdjtsn=133-875 mg/dL Higher Sgvk=141 mg/dL or greater Performed By: #### M 100.638 #### [facility] [address] [place], [address] Cholesterol in VLDL [Mass/Vol] 16 mg/dL Normal 5-40 [facility] Comment on above: Performed By: #### M 100.638 #### [facility] [address] [place], [address] Triglyceride [Mass/Vol] 78 mg/dL Normal [facility] Comment on above: Result Comment: The drugs N-Acetylcysteine and Metamizole may falsely depress this assay. Normal range: <150 mg/dL Borderline High: 150-199 mg/dL High: 200-499 mg/dL Very High: >500 mg/dL Performed By: #### M 100.638 #### [facility] [address] [place], [address] No Panel InformationOrdered By: Mary Jo Darwin on 12-12-2024 32 U/L <38 [facility] RESPIRATORY PANEL MOLECULARo n 12-12-2024 RP PANEL ADENOVIRUS Not Detected INFLUENZA A Not Detected INFLUENZA A (SUBTYPE H1) Not Detected INFLUENZA A (SUBTYPE H3) Not Detected INFLUENZA B Not Detected HUMAN METAPHNEUMO Not Detected PARAINFLUENZA 1 Not Detected PARAINFLUENZA 2 Not Detected PARAINFLUENZA 3 Not Detected PARAINFLUENZA 4 Not Detected RHINOVIRUS Not Detected RSV A Not Detected RSV B Not Detected Normal [facility] Comment on above: Performed By: #### M 100.638 #### [facility] [address] [place], [address] Screening total cholesterol/ high density lipoprotein (HDL) cholesterol ratioOrdered By: Mary Jo Darwin on 12-12-2024 Cholesterol.total/Cho lesterol in HDL [Mass ratio] 4.12 {ratio} [facility] Serum globulin measurementOr dered By: Mary Jo Darwin on 12-12-2024 Globulin (S) [Mass/Vol] 2.9 g/dL 2.2-4.2 [facility] Serum or plasma alanine brink otransferase (ALT) measurementOrdered By: Mary Jo Granados on 12-12-2024 ALT [Catalytic activity/Vol] 18 U/L <47 [facility] Serum or plasma albumin sneha urement (mass/volume)Ordered By: Mary Jo Granados on 12-12-2024 Albumin [Mass/Vol] 3.6 g/dL 3.4-4.8 [facility] Serum or plasma albumin/glob ulin mass ratioOrdered By: Mary Jo Granados on 12-12-2024 Albumin/Globulin [Mass ratio] 1.2 {ratio} 0.9-2.4 [facility] Serum or plasma alkaline darin sphatase measurementOrdered By: Mary Jo Darwin on 12-12-2024 ALP [Catalytic activity/Vol] 171 U/L High 40-129 [facility] Serum or plasma cholesterol in HDL measurement (mass/volume)Ordered By: Mary Jo Granados on 12-12-2024 Cholesterol in HDL [Mass/Vol] 36 mg/dL Low >40 [facility] Comment on above: National Cholesterol Education Program (NCEP) guidelines:<40 mg/dL: Low HDL-cholesterol (major risk factor for CHD)>= 60 mg/dL: High HDL-cholesterol (negative risk factor for CHD)HDL-cholesterol is affected by a number of factors, e.g. smoking, exercise, hormones, sex and age. Serum or plasma cholesterol measurement (mass/volume)Ordered By: Mary Jo Granados on 12-12-2024 Cholesterol [Mass/Vol] 149 mg/dL <201 [facility] Comment on above: Cholesterol level, D esirable <200 mg/dLBorderline high cholesterol 200-239 mg/dLHigh cholesterol >=240 mg/dLRecommendations of the NCEP Adult Treatment Panel for the following risk-cutoff thresholds for the [place] population. TSH DL <= 0.005 mIU/L QnOrde red By: Mary Jo Granados on 12-12-2024 Thyroid Stimulating Hormone (TSH) 3.050 uIU/mL 0.300-4.200 [facility] TSH Qn 3.050 uIU/mL 0.300-4.200 [facility] Thyroid Stim Hormone (TSH)on 12-12-2024 TSH 3.050 uIU/mL Normal 0.300-4.200 [facility] Comment on above: Performed By: #### L 501.080 #### [facility] [address] [place], [address] Total proteinOrdered By: Claudia jordin Granados on 12-12-2024 Protein [Mass/Vol] 6.5 g/dL 5.9-8.4 [facility] Triglycerides measurementOrd ered By: Mary Jo Granados on 12-12-2024 Triglyceride [Mass/Vol] 78 mg/dL <199 [facility] Comment on above: The drugs N-Acetylcy steine and Metamizole may falsely depress this assay. Normal range: <150 mg/dLBorderline High: 150-199 mg/dLHigh: 200-499 mg/dLVery High: >500 mg/dL 12 Lead EKGon 12-11-2024 12 Lead EKG [facility] Services [address] [place] [address] 12 Lead EKG 12/11/24 1535 MR#: [id number] Acct: [id number] Name: MAURI QUINONES Rep #: [id number] : 1955 69 From: Jensen Claire MD Attending Dr: Dr. Sukumar Restrepo MD Status: ADM IN Ordering Dr: Rafa Felder MD Date: 12/11/24 Location: [facility] Sex: M C Admitted: 12/11/24 Test Reason : Blood Pressure : */* mmHG Vent. Rate : 89 BPM Atrial Rate : * BPM P-R Int : * ms QRS Dur : 162 ms QT Int : 428 ms P-R-T Axes : * 240 72 degrees QTcB Int : 520 ms Atrial fibrillation Right bundle branch block Abnormal ECG Cannot rule out anterior MT-old Confirmed by Jensen Claire ([id number]), movie editor BRYCE DIMAS ([id number]) on 12/12/2024 12:44:28 PM Referred By: Confirmed By: Jensen Claire 12/12/24 1244 Date Jensen Claire MD CC: Dr. Sukumar Restrepo MD; Dr. Rafa Felder MD; Dr. Rigoberto Gould MD Signed Normal [facility] Absolute neutrophil countOrd ered By: Rafaclay Felder on 12-11-2024 Neutrophils (Bld) [#/Vol] 7.0 10*3/uL 2.0-7.7 [facility] Anion gap in Serum or Plasma Ordered By: Rafaclay Felder on 12-11-2024 Anion gap [Moles/Vol] 26 mmol/L High 5- [facility] BUN/creatinine ratioOrdered By: Rafa Felder on 12-11-2024 Urea nitrogen/Creatinine [Mass ratio] 15.4 mg/mg - [facility] Basic Metabolic Profile (BMP )on 12-11-2024 BUN/CRE 14.9 RATIO Normal - [facility] Comment on above: Performed By: #### L 500.2500 #### [facility] [address] [place], [address] Calcium [Mass/Vol] 9.8 mg/dL Normal 7.6-11.0 [facility] Comment on above: Performed By: #### L 500.2500 #### [facility] [address] [place], [address] Chloride [Moles/Vol] 85 mmol/L Low 98-108 [facility] Comment on above: Performed By: #### L 500.2500 #### [facility] [address] [place], [address] CO2 [Moles/Vol] 16.7 mmol/L Low 21.0-32.0 [facility] Comment on above: Performed By: #### L 500.2500 #### [facility] [address] [place], [address] Creatinine [Mass/Vol] 8.21 mg/dL Invalid Interpretation Code 0.70-1.20 [facility] Comment on above: Result Comment: Crit ical Result(s) Called at 2311: by:?? NBURNS TO [facility] Results read back by same. Performed By: #### L 500.2500 #### [facility] [address] [place], [address] ECRCL 9.02 ml/min Invalid Interpretation Code 50-250 [facility] Comment on above: Performed By: #### L 500.2500 #### [facility] [address] [place], [address] GAP 29 High 5-15 [facility] Comment on above: Performed By: #### L 500.2500 #### [facility] [address] [place], [address] GFR/1.73 sq M.predicted among non-blacks MDRD (S/P/Bld) [Vol rate/Area] 7 mL/min/{1.73_m2} Low >60 [facility] Comment on above: Result Comment: mL/m in/1.73m2 CKD-EPI Creatinine Equation (2020) Performed By: #### L 500.2500 #### [facility] [address] [place], [address] Glucose [Mass/Vol] 148 mg/dL High 70-99 [facility] Comment on above: Performed By: #### L 500.2500 #### [facility] [address] [place], [address] Potassium [Moles/Vol] 5.9 mmol/L High 3.3-5.1 [facility] Comment on above: Performed By: #### L 500.2500 #### [facility] [address] [place], [address] Sodium [Moles/Vol] 130 mmol/L Low 133-145 [facility] Comment on above: Performed By: #### L 500.2500 #### [facility] [address] [place], [address] Urea nitrogen [Mass/Vol] 122 mg/dL Invalid Interpretation Code 4-19 [facility] Comment on above: Result Comment: Crit ical Result(s) Called at 2311: by:?? NBURNS TO [facility] Results read back by same. Performed By: #### L 500.2500 #### [facility] [address] [place], [address] BUN/CRE 15.4 RATIO Normal 10-20 [facility] Comment on above: Performed By: #### L 501.080 #### [facility] [address] [place], [address] Calcium [Mass/Vol] 10.0 mg/dL Normal 7.6-11.0 [facility] Comment on above: Performed By: #### L 501.080 #### [facility] [address] [place], [address] Chloride [Moles/Vol] 84 mmol/L Low 98-108 [facility] Comment on above: Performed By: #### L 501.080 #### [facility] [address] [place], [address] CO2 [Moles/Vol] 21.0 mmol/L Normal 21.0-32.0 [facility] Comment on above: Performed By: #### L 501.080 #### [facility] [address] [place], [address] Creatinine [Mass/Vol] 8.04 mg/dL Invalid Interpretation Code 0.70-1.20 [facility] Comment on above: Result Comment: Crit ical Result(s) Called ZARMSTRONG at: 1606 by: MARGUERITE??Results read back by same. Performed By: #### L 501.080 #### [facility] [address] [place], [address] GAP 26 High 5-15 [facility] Comment on above: Performed By: #### L 501.080 #### [facility] [address] [place], [address] GFR/1.73 sq M.predicted among non-blacks MDRD (S/P/Bld) [Vol rate/Area] 7 mL/min/{1.73_m2} Low >60 [facility] Comment on above: Result Comment: mL/m in/1.73m2 CKD-EPI Creatinine Equation (2020) Performed By: #### L 501.080 #### [facility] [address] [place], [address] Glucose [Mass/Vol] 88 mg/dL Normal 70-99 [facility] Comment on above: Performed By: #### L 501.080 #### [facility] [address] [place], [address] Potassium [Moles/Vol] 5.9 mmol/L High 3.3-5.1 [facility] Comment on above: Performed By: #### L 501.080 #### [facility] [address] [place], [address] Sodium [Moles/Vol] 131 mmol/L Low 133-145 [facility] Comment on above: Performed By: #### L 501.080 #### [facility] [address] [place], [address] Urea nitrogen [Mass/Vol] 124 mg/dL Invalid Interpretation Code 12-13 [facility] Comment on above: Result Comment: Crit ical Result(s) Called SREEDHAR at: 1606 by: MARGUERITE??Results read back by same. Performed By: #### L 501.080 #### [facility] [address] [place], [address] Basophil percentageOrdered B y: Rafa Felder on 12-11-2024 Basophils/100 WBC (Bld) 0.7 % 0-1 [facility] CBC W/Diff, Automatedon 11-25 Absolute Lymph 0.70 X10 3/uL Low 0.83-4.51 [facility] Comment on above: Performed By: #### L 501.080 #### [facility] [address] [place], [address] Absolute Neut 7.0 X10 3/uL Normal 2.0-7.7 [facility] Comment on above: Performed By: #### L 501.080 #### [facility] [address] [place], [address] Basophils/100 WBC (Bld) 0.7 % Normal 0-1 [facility] Comment on above: Performed By: #### L 501.080 #### [facility] [address] [place], [address] Eosinophils/100 WBC (Bld) 0.9 % Normal 0-5 [facility] Comment on above: Performed By: #### L 501.080 #### [facility] [address] [place], [address] Erythrocyte distribution width (RBC) [Ratio] 17.0 % High 11.6-14.6 [facility] Comment on above: Performed By: #### L 501.080 #### [facility] [address] [place], [address] Hematocrit (Bld) [Volume fraction] 37.2 % Low 40-54 [facility] Comment on above: Performed By: #### L 501.080 #### [facility] [address] [place], [address] Hemoglobin (Bld) [Mass/Vol] 13.0 g/dL Normal 13.0-16.5 [facility] Comment on above: Performed By: #### L 501.080 #### [facility] [address] [place], [address] IG% 0.400 Normal 0.0-0.9 [facility] Comment on above: Result Comment: IG% - Immature Granulocytes (promyelocytes, myelocytes and metamyelocytes) > 1% indicates that a LEFT SHIFT is Present. Performed By: #### L 501.080 #### [facility] [address] [place], [address] Lymphocytes/100 WBC (Bld) 7.7 % Low 19-41 [facility] Comment on above: Performed By: #### L 501.080 #### [facility] [address] [place], [address] MCH (RBC) [Entitic mass] 32.4 pg High 27.0-32.0 [facility] Comment on above: Performed By: #### L 501.080 #### [facility] [address] [place], [address] MCHC (RBC) [Mass/Vol] 34.9 g/dL Normal 32-36 [facility] Comment on above: Performed By: #### L 501.080 #### [facility] [address] [place], [address] MCV (RBC) [Entitic vol] 92.8 fL Normal 80-94 [facility] Comment on above: Performed By: #### L 501.080 #### [facility] [address] [place], [address] Monocytes/100 WBC (Bld) 13.0 % High 0-10 [facility] Comment on above: Performed By: #### L 501.080 #### [facility] [address] [place], [address] Neutrophils/100 WBC (Bld) 77.3 % High 47-70 [facility] Comment on above: Performed By: #### L 501.080 #### [facility] [address] [place], [address] Nucleated RBC (Bld) [#/Vol] 0 10*3/uL Normal 0-5 [facility] Comment on above: Performed By: #### L 501.080 #### [facility] [address] [place], [address] Platelet mean volume (Bld) [Entitic vol] 10.1 fL Normal 6.2-12.0 [facility] Comment on above: Performed By: #### L 501.080 #### [facility] [address] [place], [address] Platelets (Bld) [#/Vol] 120 10*3/uL Low 150-450 [facility] Comment on above: Performed By: #### L 501.080 #### [facility] [address] [place], [address] RBC (Bld) [#/Vol] 4.01 10*6/uL Low 4.6-6.2 [facility] Comment on above: Performed By: #### L 501.080 #### [facility] [address] [place], [address] RDW SD 56.2 fl High 35.1-43.9 [facility] Comment on above: Performed By: #### L 501.080 #### [facility] [address] [place], [address] WBC (Bld) [#/Vol] 9.1 10*3/uL Normal 4.4-11.0 [facility] Comment on above: Performed By: #### L 501.080 #### [facility] [address] [place], [address] Carbon dioxide, total [Moles /volume] in Central venous bloodOrdered By: Rafa Felder on 12-11-2024 CO2 [Moles/Vol] 21.0 mmol/L 21.0-32.0 [facility] Chest PA and Lateralon 12-11 Chest PA and Lateral [facility] Imaging Services [address] [place] [address] Chest PA and Lateral MR#: [id number] Acct: [id number] Name: MAURI QUINONES Rep #: [id number] : 1955 M 69 From: Lee Davis MD PCP: Dr. Rigoberto Gould MD Status: REG ER Study: Chest PA and Lateral Date of Exam: 12/11/24 Exam# [id number] Ordering Dr: Rafa Felder MD PROCEDURE: CHEST [...] and Lateral IMPRESSION: CHF exacerbation. Reading [facility] CC: Dr. Rafa Felder MD; Dr. Rigoberto Gould MD Drawing Checker: Signed Normal [facility] Chloride assayOrdered By: Crys Felder on 12-11-2024 Chloride [Moles/Vol] 84 mmol/L Low 98-108 [facility] Consultation - Cardiologyon 12-11-2024 Consultation - Cardiology [facility] Medical Records Department [address] [place] [address] Consultation - Cardiology 12/11/24 1753 MR#: [id number] Acct: [id number] Name: MAURI QUINONES Rep #: [id number] : 1955 69 From: Jensen Claire MD [...] an echocardiog (more content not included)... Normal [facility] Echo Completeon 12-11-2024 Echo Complete [facility] Services [address] [place] [address] Echo Complete 12/12/24 1441 MR#: [id number] Acct: [id number] Name: MAURI QUINONES Rep #: [id number] : 1955 69 From: José Miguel Nunez MD Attending Dr: Dr. Sukumar Restrepo MD Status: ADM IN Ordering Dr: Mary Jo Granados MD Date: 12/11/24 Location: U Sex: M C Admitted: 04/17/25 Reason For Study Reason For Study: CHF [...] Dictated: 12/12/24 1441 Date Transcribed: 12/12/24 1535 Drawing Checker: Signed Normal [facility] Emergency Department Summary on 12-11-2024 Emergency Department Summary [facility] Medical Records Department [address] [place] [address] Emergency Department Summary 12/11/24 MR#: [id number] Acct: [id number] Name: MAURI QUINONES Rep #: [id number] : 1955 69 From: Rafa Felder MD [...] Prior similar symptoms: Yes Recent [facility]ness[facility] Medical History C. difficile diarrhea Anemia History of GI bleed Pure hypercholesterolemia Ischemic cardiomyopathy Essential hypertension Renal insufficiency Ankylosing spondylitis CAD (coronary artery disease) Overweight (BMI 25.0-29.9) Leg edema Leg swelling Acute systolic heart failure Bradycardia Biliary pleural effusion HTN (hypertension) Ventricular tachyarrhythmia Atherosclerosis of holy cross co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 pectoris Pulmonary HTN Cardiomyopathy [...] femur surger (more content not included)... Normal [facility] Eosinophil percentageOrdered By: Rafaclay Felder on 12-11-2024 Eosinophils/100 WBC (Bld) 0.9 % 0-5 [facility] Erythrocyte distribution wid th (RBC) [Ratio]Ordered By: [facility] on 12-11-2024 Erythrocyte distribution width (RBC) [Entitic vol] 56.2 fL High 35.1-43.9 [facility] Erythrocyte distribution wid th ratioOrdered By: [facility] on 12-[facility] Erythrocyte distribution width (RBC) [Ratio] 17.0 % High 11.6-14.6 [facility] GFR/1.73 sq M.predicted corazon g non-blacks MDRD (S/P/Bld) [Vol rate/Area]Ordered By: [facility] on 12-11-2024 Estimated GFR (MDRD) Non-Af Amer 7 Low >60 [facility] Comment on above: mL/min/1.73m2 CKD-EP I Creatinine Equation (2020) H AND P Exam - Hospitaliston 12-11-2024 H&P Exam - Hospitalist [facility] Medical Records Department [address] [place] [address] H P Exam - Hospitalist 12/11/24 1652 MR#: [id number] Acct: [id number] Name: MAURI QUINONES Rep #: [id number] : 1955 69 From: Mary Jo Granados [...] Former tobacco use who presents to the [facility] ED on 12/11/24 with history of [...] and no concern for peaked T waves. [facility] Medical History C. difficile diarrhea Anemia History of GI bleed Pure hypercholesterolemia Ischemic cardiomyopathy Essential hypertension Renal insufficiency Ankylosing spondylitis CAD (coronary artery disease) Overweight (BMI 25.0-29.9) Leg edema Leg swelling Acute systolic heart failure Bradycardia Biliary pleural effusion HTN (hypertension) Ventricular tachyarrhythmia Atherosclerosis of holy cross co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 pectoris Pulmonary HTN Cardiomyopathy [...] hx f (more content not included)... Normal [facility] Hematocrit Auto (Bld) [Volum e fraction]Ordered By: Rafaclay Felder on 12-11-2024 Hematocrit (Bld) [Volume fraction] 37.2 % Low 40-54 [facility] Hemoglobin measurementOrdere d By: [facility] on 12-11-2024 Hemoglobin (Bld) [Mass/Vol] 13.0 g/dL 13.0-16.5 [facility] Immature granulocytes/100 WB C Auto (Bld)Ordered By: [facility] on 12-11-2024 Immature granulocytes/100 WBC (Bld) 0.400 % 0.0-0.9 [facility] Comment on above: IG% - Immature Granu locytes (promyelocytes, myelocytes and metamyelocytes) > 1% indicates that a LEFT SHIFT is Present. Influenza virus A and B and SARS-CoV-2 (COVID-19) and Respiratory syncytial virus RNAOrdered By: Rafa Felder on 12-11-2024 SARS-CoV-2 (COVID-19) RNA AMADOU+probe Ql (Unsp spec) [facility] L509.7001on 12-11-2024 Procalcitonin 1.39 ng/mL High <=0.10 [facility] Comment on above: Result Comment: Inte [...] patient. Performed By: #### L 509.7001 #### [facility] [address] [place], [address] Lymphocytes Auto (Unsp spec) [#/Vol]Ordered By: [facility] on 12-11-2024 Lymphocytes (Bld) [#/Vol] 0.70 10*3/uL Low 0.83-4.51 [facility] Lymphocytes/100 WBC Auto (Un sp spec)Ordered By: Rafa Felder on 12-11-2024 Lymphocytes/100 WBC (Bld) 7.7 % Low 19-41 [facility] M100.678on 12-11-2024 M100.678 Pending SARS-CoV-2 (COVID 19) Negative INFLUENZA A Negative INFLUENZA B Negative RSV PCR Negative Normal [facility] Comment on above: Performed By: #### M 100.678 #### [facility] [address] [place], [place], [address] MCV (mean corpuscular volume ) determinationOrdered By: Rafa Felder on 12-11-2024 MCV (RBC) [Entitic vol] 92.8 fL 80-94 [facility] Magnesiumon 12-11-2024 Magnesium [Mass/Vol] 2.6 mg/dL High 1.5-2.2 [facility] Comment on above: Order Comment: Comme nts: May add to ED labsComments: may add to ED labs Performed By: #### L 509.7001 #### [facility] [address] [place], [place], [address] Magnesium (Unsp spec) [Mass/ Vol]Ordered By: Mary Jo Granados on 12-11-2024 Magnesium [Mass/Vol] 2.6 mg/dL High 1.5-2.2 [facility] Magnesium measurement (mass/ volume)Ordered By: Mary Jo Granados on 12-11-2024 Magnesium (Unsp spec) [Mass/Vol] 2.6 mg/dL High 1.5-2.2 [facility] Mean corpuscular hemoglobin (MCH) determinationOrdered By: Rafa Felder on 12-11-2024 MCH (RBC) [Entitic mass] 32.4 pg High 27.0-32.0 [facility] Mean corpuscular hemoglobin concentration (MCHC) determinationOrdered By: Rafa Felder on 12-11-2024 MCHC (RBC) [Mass/Vol] 34.9 g/dL 32-36 [facility] Mean platelet volume determi nationOrdered By: Rafa Felder on 12-11-2024 Platelet mean volume (Bld) [Entitic vol] 10.1 fL 6.2-12.0 [facility] Monocyte percentageOrdered B y: Rafa Felder on 12-11-2024 Monocytes/100 WBC (Bld) 13.0 % High 0-10 [facility] Neutrophil percentageOrdered By: Rafaclay Felder on 12-11-2024 Neutrophils/100 WBC (Bld) 77.3 % High 47-70 [facility] Nucleated red blood cell per centageOrdered By: Rafaclay Felder on 12-11-2024 Nucleated RBC/100 WBC (Bld) [Ratio] 0 % 0-5 [facility] Phosphoruson 12-11-2024 Phosphate [Mass/Vol] 12.7 mg/dL Invalid Interpretation Code 2.7-4.5 [facility] Comment on above: Order Comment: Comme [...] back by same. Performed By: #### L 509.7001 #### [facility] [address] [place], [address] Platelet countOrdered By: Crys Felder on 12-11-2024 Platelets (Bld) [#/Vol] 120 10*3/uL Low 150-450 [facility] Potassium (Unsp spec) [Mass/ Vol]Ordered By: Rafa Munizo on 12-11-2024 Potassium [Moles/Vol] 5.9 mmol/L High 3.3-5.1 [facility] Procalcitonin IA [Mass/Vol]O rdered By: Mary Jo Granados on 12-11-2024 Procalcitonin 1.39 ng/mL High <0.11 [facility] Comment on above: Interpretation:<0.10 -0.25 ng/mL: [...] Procalcitonin IA [Mass/Vol] 1.39 ng/mL High <0.11 [facility] RBC Auto (Bld) [#/Vol]Ordere d By: Rafa Felder on 12-11-2024 RBC (Bld) [#/Vol] 4.01 10*6/uL Low 4.6-6.2 [facility] Respiratory pathogens DNA an d RNA panel AMADOU+probe (Resp)Ordered By: [facility] on 12-11-2024 Respiratory Panel (PCR) [facility] Respiratory pathogens detect ion panel by molecular detection methodOrdered By: [facility] on 12-11-2024 Respiratory pathogens DNA and RNA panel AMADOU+probe (Resp) [facility] Serum creatinine measurement (mass/volume)Ordered By: Rafa Felder on 12-11-2024 Creatinine [Mass/Vol] 8.04 mg/dL High 0.70-1.20 [facility] Comment on above: Critical Result(s) Marianne ELI at: 1606 by: MARGUERITE Results read back by same. Serum glucose measurement (m ass/volume)Ordered By: Rafa Felder on 12-11-2024 Glucose [Mass/Vol] 88 mg/dL 70-99 [facility] Serum or plasma calcium sneha urement (mass/volume)Ordered By: Rafa Felder on 12-11-2024 Calcium [Mass/Vol] 10.0 mg/dL 7.6-11.0 [facility] Serum or plasma urea nitroge n measurement (mass/volume)Ordered By: Rafa Felder on 12-11-2024 Urea nitrogen [Mass/Vol] 124 mg/dL High 4-19 [facility] Comment on above: Critical Result(s) C brayden HALLHERMELINDO at: 1606 by: MARGUERITE Results read back by same. Serum phosphorus measurement Ordered By: Mary Jo Granados on 12-11-2024 Phosphorus Level 12.7 mg/dL High 2.7-4.5 [facility] Comment on above: Critical Result(s) Marianne IRAHETA at: 1758 by: MARGUERITE Results read back by same. Critical Result(s) Called at: by: Results read back by same.Previous reported result: 12.7 mg/dLEdited by: MARLON on 12/11/24:1813 AMENDED REPORT 12/11/241812 PHOS previously reported as: 12.7 *H mg/dL Critical Result(s) Called MYRTLE at: 1758 by: MARGUERITE Results read back by same. Sodium levelOrdered By: Rafa Felder on 12-11-2024 Sodium [Moles/Vol] 131 mmol/L Low 133-145 [facility] White blood cell (WBC) count Ordered By: Rafa Felder on 12-11-2024 WBC (Bld) [#/Vol] 9.1 10*3/uL 4.4-11.0 [facility] CNOVon 12-05-2024 CNOV Office Visit (FAMPWS ) -- MAURI QUINONES ([id number]) 1955 M Date Time Provider Department 12/05/24 1:20 PM ALEXUS MENDEZ FAMPWS During your visit today, we recorded the following information about you: Temperature Pulse Blood pressure Weight 97.3 degrees 85/minute 122/68 81.2 kg Alexus Mendez APRN.MARGUERITE 12/05/2024 1:45 PM Signed This is a [...] Acute on chronic diastolic congestive heart failure ([facility]) 07/14/2018 GARRET (acute kidney injury) 03/24/2019 [facility]RET (acute kidney injury) 03/24/2019 Ankylosing spondylitis ([facility]) CAD (coronary artery disease) Cellulitis Chronic combined systolic and diastolic CHF (congestive heart failure) ([facility]) 03/24/2019 CKD (chronic kidney disease) stage 3, GFR 30-59 ml/min ([facility]) 03/24/2019 Constipation Diabetes ([facility]) Gout High phosphate levels 03/24/2019 History of [...] valve calcifi NSTEMI (non-ST elevated myocardial infarction) ([facility]) 03/12/2017 [facility] admit Osteoarthritis Transition of care performed with sharing of clinical summary 04/08/2019 Admit [facility] 03/21/19-03/22/19 Discharge diagnoses chronic kidney disease with worsening creatinine, acute kidney injury Hypokalemia Toxic encephalopathy secondary to Flexeril overusage Type 2 diabetes Ischemic cardiomyopathy Coronary artery disease Ligamental cervical neck strain and acute Pulmonary hypertension Hypertension Pyuria Preadmit: to [facility] ED with slurred speech, lethargy. PAST [...] 1 tablet by mouth every morning. Insulin Ridge, Disposable, (BD ULTRA-FINE GOLDY PEN NEEDLE) 32 [...] FAMILY HISTORY (more content not included)... Normal [facility] Bacteria Fld Culton 12-04-19 25 Bacteria identified Cx Nom (Body fld) CULTURE, BODY FLD: No growth Normal [facility] Comment on above: Performed By: #### 6 11-4 ####[facility] LABCLIA [id number] [address] OF [facility] Guidance for arthrocentesis of Major jointon 12-03-2024 IMPRESSION: Successful right hip joint injection. Drawing Checker: CARMELA Transcribe Date/Time: Dec 03 2024 3:23P Dictated by : OSMAN JORDAN DO This examination was interpreted and the report reviewed and electronically signed by: OSMAN JORDAN DO on Dec 03 2024 3:24PM EST [facility] * * *Final Report* * * [...] and left the department in stable condition. [facility] Provider, Phyllis Camp - 12/03/2024 * [...] IMPRESSION IMPRESSION: Successful right hip joint injection. Drawing Checker: CARMELA Transcribe Date/Time: Dec 03 2024 3:23P Dictated by : OSMAN JORDAN DO This examination was interpreted and the report reviewed and electronically signed by: OSMAN JORDAN DO on Dec 03 2024 3:24PM EST [facility] Radiology Study observation (narrative) [facility] Guidance for arthrocentesis of Major jointOrdered By: Phyllis Provider on 12-03-2024 [facility] SYNOVIAL FLUID MANUAL DIFFon 12-03-2024 DIF TTL, SYNOVIAL FLUID 100 cells counted Normal [facility] Comment on above: Order Comment: Speci men Type: FLUID SPECIMENOrdering Facility: [facility] Address: [address] [place] [address] Performed By: #### L [id number], RTSYNF ####[facility]ORYCLIA [id number] [place] [address] [place]#### SFCRID ####[facility]ORYCLIA [id number] [place] [id number] [place] [facility] [id number] [place] [address] [place] MONO%, SF 3 Normal [facility] Comment on above: Order Comment: Speci men Type: FLUID SPECIMENOrdering Facility: [facility] Address: [address] [place] [id number] Performed By: #### L [id number], RTSYNF ####[facility]ATORYCLIA [id number] [place] [address] [place]#### SFCRID ####[facility]ORYCLIA [id number] [place], [place] [address] [place] [address] LABCLIA [id number] [address] [place] [address] [place] NEUT% 97 High 0-<25 [facility] Comment on above: Order Comment: Speci men Type: FLUID SPECIMENOrdering Facility: [facility] Address: [address] [place] [address] Performed By: #### L [id number], RTSYNF ####[facility]ATORYCLIA [id number] [address]#### SFCRID ####[facility]ORATORYCLIA [id number] [place] [address] [facility] LABCLIA [id number] [place] [id number] [place] SYNOVIAL FLUID, CRYSTAL ID/P ATHOLOGIST INTERPRETATIONon 12-03-2024 CRYSTAL PRELIM, SF PRELIMINARY REPORT N o diagnostic crystals seen. SEE FINAL SF PATH REVIEW Normal [facility] Comment on above: Order Comment: Speci men Type: FLUID SPECIMENOrdering Facility: [facility] Address: [address] [place], [place] [address] Performed By: #### L [id number], RTSYNF ####[facility]ORATORYCLIA [id number] [place], [place] [address] [place] [address] OF [place]#### SFCRID ####[facility]ATORYCLIA [id number] [place] [address] [facility] LABCLIA [id number] [address] [place] [address] [place] CRYSTAL REVIEW Reviewed by DO Lisa Torres [facility] Comment on above: Order Comment: Speci men Type: FLUID SPECIMENOrdering Facility: [facility] Address: [address] [place] [address] Performed By: #### L [id number], RTSYNF ####[facility]ATORYCLIA [id number] [place] [address] [place]#### SFCRID ####[facility]ATORYCLIA [id number] [place] [address] [place] [facility] [id number] [place] [address] [place] Crystals LM Nom (Syn fld) None seen Normal None seen [facility] Comment on above: Order Comment: Speci men Type: FLUID SPECIMENOrdering Facility: [facility] Address: [address] [place] [address] Performed By: #### L [id number], RTSYNF ####[facility]ORATORYCLIA [id number] [place] [address] [place]#### SFCRID ####[facility]ATORYCLIA [id number] [place] [address] [place] [facility] LABCLIA [id number] [place] [address] [place] SYNOVIAL FLUID, ROUTINEon Clarity (Unsp spec) Slightly Cloudy Abnormal Clear [facility] Comment on above: Order Comment: Speci men Type: FLUID SPECIMENOrdering Facility: [facility] Address: [address] [place] [id number] Performed By: #### L [id number], RTSYNF ####[facility]ORATORYCLIA [id number] [place] [address] [place]#### SFCRID ####[facility]ATORYCLIA [id number] [place] [address] [place] [facility] LABCLIA [id number] [place] [address] [place] Color (Syn fld) Slightly bloody Abnormal Yellow [facility] Comment on above: Order Comment: Speci men Type: FLUID SPECIMENOrdering Facility: [facility] Address: [address] [place] [address] Performed By: #### L [id number], RTSYNF ####[facility]ORATORYCLIA [id number] [place] [address] [place]#### SFCRID ####[facility]ORATORYCLIA [id number] [place] [address] [place] [facility] LABCLIA [id number] [place] [address] [place] RBC Manual cnt (Syn fld) [#/Vol] 5087109 /uL High <2000 [facility] Comment on above: Order Comment: Speci men Type: FLUID SPECIMENOrdering Facility: [facility] Address: [address] [place] [address] Performed By: #### L [id number], RTSYNF ####[facility]ORATORYCLIA [id number] [place] [address] [place]#### SFCRID ####[facility]ATORYCLIA [id number] [place] [address] [place] [facility] LABCLIA [id number] [place] [address] [place] Specimen source Nom (Unsp spec) Hip, Right Normal [facility] Comment on above: Order Comment: Speci men Type: FLUID SPECIMENOrdering Facility: [facility] Address: [address] [place] [address] Performed By: #### L [id number], RTSYNF ####[facility]ORATORYCLIA [id number] [place] [address] [place]#### SFCRID ####[facility]ORATORYCLIA [id number] [place] [address] [place] [facility] LABCLIA [id number] [place] [id number] [facility] WBC Manual cnt (Syn fld) [#/Vol] 5730 /uL High 0-200 [facility] Comment on above: Order Comment: Speci men Type: FLUID SPECIMENOrdering Facility: [facility] Address: [address] [place] [address] Performed By: #### L [id number], RTSYNF ####[facility] LABORATORYCLIA [id number] [address]#### SFCRID ####[facility] LABORATORYCLIA [id number] [place] [id number] [facility] LABCLIA [id number] [address] XR HIP ASPIRATION RTon 12-03 XR HIP [...] condition. IMPRESSION: Successful right hip joint injection. Drawing Checker: CARMELA Transcribe Date/Time: Dec 03 2024 3:23P Dictated by : OSMNA JORDAN, This examination was interpreted and the report reviewed and electronically signed by: OSMAN JORDAN DO on Dec 03 2024 3:24PM EST [id number] Normal [facility] Bone 3 Phase Viewson 04-0 IMPRESSION: * Right hip periprosthetic uptake at the level of the greater trochanter on the delayed phase images, suggesting stress reaction. Follow-up evaluation, as clinically indicated. No abnormal three-phase increased uptake. * Degenerative appearing changes at the left hip and knee joints. Drawing Checker: CARMELA Transcribe Date/Time: Nov 27 2024 7:19A Dictated by : PHUONG CORDOVA MD This examination was interpreted and the report reviewed and electronically signed by: PHUONG CORDOVA MD on Nov 27 2024 7:28AM EST [facility] * * *Final Report* * * DATE OF EXAM: Nov 26 2024 2:14PM [facility] 0009 - [place] BONE 3 PHASE / PROCEDURE REASON: M25.551-Pain [...] the right knee cannot be well localized. [facility] Provider, Phyllis Camp - 11/27/2024 * * *Final Report* * * DATE OF EXAM: Nov 26 2024 2:14PM [facility] 0009 - NM BONE 3 PHASE / [...] at the left hip and knee joints. Drawing Checker: CARMELA Transcribe Date/Time: Nov 27 2024 7:19A Dictated by : PHUONG CORDOVA MD This examination was interpreted and the report reviewed and electronically signed by: PHUONG CORDOVA MD on Nov 27 2024 7:28AM EST [facility] NM Bone 3 Phase ViewsOrdered By: [facility] Provider on 11-27-2024 [facility] NM BONE 3 PHASEon 11-26-2024 NM BONE 3 PHASE * * *Final Report* [...] at the left hip and knee joints. Drawing Checker: PSCB Transcribe Date/Time: Nov 27 2024 7:19A Dictated by : PHUONG CORDOVA MD This examination was interpreted and the report reviewed and electronically signed by: PHUONG CORDOVA MD on Nov 27 2024 7:28AM EST [id number] [facility] Bone 3 Phase Viewson 04-0 Radiology Study observation (narrative) [facility] Aniket 11-20-2024 CNPN Telephone (ORMDNA) -- MAURI QUINONES ([id number]) 1955 M Date Time Provider Department 11/20/24 NUPUR DE LA ROSA During your visit today, we recorded the following information about you: Lori Pino 11/20/2024 9:36 AM Signed Patient called in, he got the results of his lab work and was curious what thought, please advise. Patient can be reached at #[phone] Yessenia Hewitt PA-C 11/21/2024 1:02 PM Signed Discussed with dr. De La Rosa. Labs are only slightly elevated. He is recommending aspiration with fluid analysis. Orders placed. PASTOR Dias, Isabela, SULTANA 11/21/2024 1:08 PM Signed Spoke with patient [...] [Z96.641] Order(s):SYNOVIAL FLUID, ROUTINE [SQRTSYN] Order #: [id number]. #:[id number] SYNOVIAL FLUID, CRYSTAL ID/PATHOLOGIST INTERPRETATION [SQSFCRID] Order #: [id number] FUTURE BACTERIAL CULTURE AND GRAM STAIN, STERILE BODY FLUID [SQBFCUL] Order #: [id number]. #:[id number] IMAGING GUIDED HIP ASPIRATION RIGHT [4565052] Order #: [id number] FUTURE SYNOVIAL FLUID MANUAL DIFF [AKO4090] Reflex Order#: [id number] (Ord#:[id number])Spec. #:[id number] SYNOVIAL FLUID, CRYSTAL ID/PATHOLOGIST INTERPRETATION [SQSFCRID] Reflex Order#: [id number] (Ord#:[id number])Spec. #:[id number] Prescriptions as of 12/04/2024 - methylPREDNISolone (MEDROL, [...] tablet by mouth every morning. - Insulin Ridge, Disposable, (BD ULTRA-FINE GOLDY PEN NEEDLE) 32 [...] 12/02/2021 Hypoalbuminemia (more content not included)... [facility]URI [facility] ([id number]) 1955 M Date Time Provider Department 11/20/24 [facility]IGOBERTO [facility] During your visit today, we recorded the following information about you: Farrah Hastings RN 11/20/2024 12:50 PM Signed Bernice WEINBERG from [facility] calls and states that they will be sending out a home health aide to help patient 3 hours a week. Bernice asking if PCP willing to follow orders? Please review and advise, SULTANA Garcia William J, MD 11/20/2024 1:54 PM Signed Bryce Perea RN 11/20/2024 4:42 PM Signed Called and left a detailed voicemail notifying Bernice WEINBERG from [facility] of providers message. Clinic phone number was [...] tablet by mouth every morning. - Insulin Ridge, Disposable, (BD ULTRA-FINE GOLDY PEN NEEDLE) 32 [...] Rogelzoie, PharmD Problem List As Of Date 11/20/2024 [...] 12/02/2021 Encounter for support and coordination of trans*10/06/2020more content not included)... Normal [facility] C-REACTIVE PROTEINon 025 CRP [Mass/Vol] 1.8 mg/dL High NINF - 0.9 mg/dL [facility] CBC W Auto Differential pane l (Bld)on 11-14-2024 Basophils (Bld) [#/Vol] [facility] Basophils/100 WBC (Bld) 0.3 % [facility] Differential cell count method Nom (Bld) Auto [facility] Eosinophils (Bld) [#/Vol] 0.12 10*3/uL [facility] Eosinophils/100 WBC (Bld) 1.9 % [facility] Erythrocyte distribution width (RBC) [Ratio] 16.4 % High 11.5 - 15.0 % [facility] Hematocrit (Bld) [Volume fraction] 33.1 % Low 39.0 - 51.0 % [facility] Hemoglobin (Bld) [Mass/Vol] 10.5 g/dL Low 13.0 - 17.0 g/dL [facility] Immature granulocytes (Bld) [#/Vol] [facility] Immature granulocytes/100 WBC (Bld) 0.3 % [facility] Interpretation and review of laboratory results Abnormal [facility] Lymphocytes (Bld) [#/Vol] 0.64 10*3/uL Low [facility] Lymphocytes/100 WBC (Bld) 10.3 % [facility] MCH (RBC) [Entitic mass] 30.7 pg 26.0 - 34.0 pg [facility] MCHC (RBC) [Mass/Vol] 31.7 g/dL 30.5 - 36.0 g/dL [facility] MCV (RBC) [Entitic vol] 96.8 fL 80.0 - 100.0 fL [facility] Monocytes (Bld) [#/Vol] 0.66 10*3/uL [facility] Monocytes/100 WBC (Bld) 10.6 % [facility] Neutrophils (Bld) [#/Vol] 4.78 10*3/uL [facility] Neutrophils/100 WBC (Bld) 76.6 % [facility] Nucleated RBC (Bld) [#/Vol] [facility] Nucleated RBC/100 WBC (Bld) [Ratio] 0 % /100 WBC [facility] Platelet mean volume (Bld) [Entitic vol] 9.9 fL 9.0 - 12.7 fL [facility] Platelets (Bld) [#/Vol] 115 10*3/uL Low [facility] Comment on above: No clot detected. RBC (Bld) [#/Vol] 3.42 10*6/uL Low 4.20 - 6.0 0 m/uL [facility] WBC (Bld) [#/Vol] 6.24 10*3/uL [facility] Basophils (Bld) [#/Vol] 10*3/uL Normal <0.11 [facility] Comment on above: Order Comment: Speci men Type: BLOOD SPECIMENOrdering Facility: [facility] Address: [address] [place] [address] Performed By: #### 5 7021-8 ####ADAM LABORATORYCLIA [id number] [address] Basophils/100 WBC (Bld) 0.3 % Normal [facility] Comment on above: Order Comment: Speci men Type: BLOOD SPECIMENOrdering Facility: [facility] Address: [address] [place] [address] Performed By: #### 5 7021-8 ####ADAM LABORATORYCLIA [id number] [address] Differential cell count method Nom (Bld) Auto Normal [facility] Comment on above: Order Comment: Speci men Type: BLOOD SPECIMENOrdering Facility: [facility] Address: [address] [place] [address] Performed By: #### 5 7021-8 ####ADAM LABORATORYCLIA [id number] [place] [address] [facility] [place] Eosinophils (Bld) [#/Vol] 0.12 10*3/uL Normal <0.46 [facility] Comment on above: Order Comment: Speci men Type: BLOOD SPECIMENOrdering Facility: [facility] Address: [address] [place] [address] Performed By: #### 5 7021-8 ####ADAM LABORATORYCLIA [id number] [address] Eosinophils/100 WBC (Bld) 1.9 % Normal [facility] Comment on above: Order Comment: Speci men Type: BLOOD SPECIMENOrdering Facility: [facility] Address: [address] [place] [address] Performed By: #### 5 7021-8 ####ADAM LABORATORYCLIA [id number] [address] [place] Erythrocyte distribution width (RBC) [Ratio] 16.4 % High 11.5-15.0 [facility] Comment on above: Order Comment: Speci men Type: BLOOD SPECIMENOrdering Facility: [facility] Address: [address] [place] [address] Performed By: #### 5 7021-8 ####ADAM LABORATORYCLIA [id number] [address] [place] Hematocrit (Bld) [Volume fraction] 33.1 % Low 39.0-51.0 [facility] Comment on above: Order Comment: Speci men Type: BLOOD SPECIMENOrdering Facility: [facility] Address: [address] [place] [address] Performed By: #### 5 7021-8 ####ADAM LABORATORYCLIA [id number] [place] [address] [place] Hemoglobin (Bld) [Mass/Vol] 10.5 g/dL Low 13.0-17.0 [facility] Comment on above: Order Comment: Speci men Type: BLOOD SPECIMENOrdering Facility: [facility] Address: [address] [place] [address] Performed By: #### 5 7021-8 ####ADAM LABORATORYCLIA [id number] [place] [address] [place] Immature granulocytes (Bld) [#/Vol] 10*3/uL Normal <0.10 [facility] Comment on above: Order Comment: Speci men Type: BLOOD SPECIMENOrdering Facility: [facility] Address: [address] [place] [address] Performed By: #### 5 7021-8 ####ADAM LABORATORYCLIA [id number] [address] Immature granulocytes/100 WBC (Bld) 0.3 % Normal [facility] Comment on above: Order Comment: Speci men Type: BLOOD SPECIMENOrdering Facility: [facility] Address: [address] [place] [address] Performed By: #### 5 7021-8 ####ADAM LABORATORYCLIA [id number] [place] [address] [place] Lymphocytes (Bld) [#/Vol] 0.64 10*3/uL Low 1.00-4.00 [facility] Comment on above: Order Comment: Speci men Type: BLOOD SPECIMENOrdering Facility: [facility] Address: [address] [place] [address] Performed By: #### 5 7021-8 ####ADAM LABORATORYCLIA [id number] [place] [id number] [facility] [place] Lymphocytes/100 WBC (Bld) 10.3 % Normal [facility] Comment on above: Order Comment: Speci men Type: BLOOD SPECIMENOrdering Facility: [facility] Address: [address] [place] [address] Performed By: #### 5 7021-8 ####ADAM LABORATORYCLIA [id number] [place] [address] [place] MCH (RBC) [Entitic mass] 30.7 pg Normal 26.0-34.0 [facility] Comment on above: Order Comment: Speci men Type: BLOOD SPECIMENOrdering Facility: [facility] Address: [address] [place] [address] Performed By: #### 5 7021-8 ####ADAM LABORATORYCLIA [id number] [address] MCHC (RBC) [Mass/Vol] 31.7 g/dL Normal 30.5-36.0 [facility] Comment on above: Order Comment: Speci men Type: BLOOD SPECIMENOrdering Facility: [facility] Address: [address] [place] [address] Performed By: #### 5 7021-8 ####ADAM LABORATORYCLIA [id number] [address] MCV (RBC) [Entitic vol] 96.8 fL Normal 80.0-100.0 [facility] Comment on above: Order Comment: Speci men Type: BLOOD SPECIMENOrdering Facility: [facility] Address: [address] [place] [address] Performed By: #### 5 7021-8 ####ADAM LABORATORYCLIA [id number] [address] Monocytes (Bld) [#/Vol] 0.66 10*3/uL Normal <0.87 [facility] Comment on above: Order Comment: Speci men Type: BLOOD SPECIMENOrdering Facility: [facility] Address: [address] [place] [address] Performed By: #### 5 7021-8 ####ADAM LABORATORYCLIA [id number] [address] Monocytes/100 WBC (Bld) 10.6 % Normal [facility] Comment on above: Order Comment: Speci men Type: BLOOD SPECIMENOrdering Facility: [facility] Address: [address] [place] [address] Performed By: #### 5 7021-8 ####ADAM LABORATORYCLIA [id number] [address] [place] Neutrophils (Bld) [#/Vol] 4.78 10*3/uL Normal 1.45-7.50 [facility] Comment on above: Order Comment: Speci men Type: BLOOD SPECIMENOrdering Facility: [facility] Address: [address] [place] [address] Performed By: #### 5 7021-8 ####ADAM LABORATORYCLIA [id number] [address] [place] Neutrophils/100 WBC (Bld) 76.6 % Normal [facility] Comment on above: Order Comment: Speci men Type: BLOOD SPECIMENOrdering Facility: [facility] Address: [address] [place] [address] Performed By: #### 5 7021-8 ####ADAM LABORATORYCLIA [id number] [place] [address] [place] Nucleated RBC (Bld) [#/Vol] 10*3/uL Normal <0.01 [facility] Comment on above: Order Comment: Speci men Type: BLOOD SPECIMENOrdering Facility: [facility] Address: [address] [place] [address] Performed By: #### 5 7021-8 ####ADAM LABORATORYCLIA [id number] [address] Nucleated RBC/100 WBC (Bld) [Ratio] 0.0 /100 WBC Normal [facility] Comment on above: Order Comment: Speci men Type: BLOOD SPECIMENOrdering Facility: [facility] Address: [address] [place] [address] Performed By: #### 5 7021-8 ####ADAM LABORATORYCLIA [id number] [place] [address] [place] Platelet mean volume (Bld) [Entitic vol] 9.9 fL Normal 9.0-12.7 [facility] Comment on above: Order Comment: Speci men Type: BLOOD SPECIMENOrdering Facility: [facility] Address: [address] [place] [address] Performed By: #### 5 7021-8 ####ADAM LABORATORYCLIA [id number] [address] [place] Platelets (Bld) [#/Vol] 115 10*3/uL Low 150-400 [facility] Comment on above: Order Comment: Kelsi huff Type: BLOOD SPECIMENOrdering Facility: [facility] Address: [address] [place] [address] Result Comment: No c lot detected. Performed By: #### 5 7021-8 ####ADAM LABORATORYCLIA [id number] [place] [address] [facility] RBC (Bld) [#/Vol] 3.42 10*6/uL Low 4.20-6.00 [facility] Comment on above: Order Comment: Kelsi huff Type: BLOOD SPECIMENOrdering Facility: [facility] Address: [address] [place] [address] Performed By: #### 5 7021-8 ####ADAM LABORATORYCLIA [id number] [address] [place] WBC (Bld) [#/Vol] 6.24 10*3/uL Normal 3.70-11.00 [facility] Comment on above: Order Comment: Kelsi huff Type: BLOOD SPECIMENOrdering Facility: [facility] Address: [address] [place] [address] Performed By: #### 5 7021-8 ####ADAM LABORATORYCLIA [id number] [address] OF [facility] CNOVon 11-14-2024 CNOV Office Visit (ORMDNA ) -- MAURI QUINONES ([id number]) 1955 M Date Time Provider Department 11/14/24 [...] Acute on chronic diastolic congestive heart failure ([facility]) 07/14/2018 GARRET (acute kidney injury) 03/24/2019 GARRET (acute kidney injury) 03/24/2019 Ankylosing spondylitis ([facility]) CAD (coronary artery disease) Cellulitis Chronic combined systolic and diastolic CHF (congestive heart failure) ([facility]) 03/24/2019 CKD (chronic kidney disease) stage 3, GFR 30-59 ml/min ([facility]) 03/24/2019 Constipation Diabetes ([facility]) Gout High phosphate levels 03/24/2019 History of [...] NSTEMI (non-ST elevated myocardial infarction) (HCC) 03/12/2017 [facility] admit Osteoarthritis Transition of care performed with sharing of clinical summary 04/08/2019 Admit [facility] 03/21/19-03/22/19 Discharge diagnoses chronic kidney disease with worsening creatinine, acute kidney injury Hypokalemia Toxic encephalopathy secondary to Flexeril overusage Type 2 diabetes Ischemic cardiomyopathy Coronary artery disease Ligamental cervical neck strain and acute Pulmonary hypertension Hypertension Pyuria Preadmit: to [facility] ED with slurred speech, lethargy. PAST [...] diagnosis includes (more content not included)... Normal [facility] CRP SerPl-ncon 11-14-2024 CRP [Mass/Vol] 1.8 mg/dL High <0.9 [facility] Comment on above: Order Comment: Specmarcellus huff Type: BLOOD SPECIMENOrdering Facility: [facility] Address: [address] [place] [address] Performed By: #### 1 988-5 ####ELROSA LABORATORYCLIA [id number] [place] [address] [place] CRP [Mass/Vol]on 11-14-2024 Interpretation and review of laboratory results Abnormal [facility] ESR Westergren method (Bld) [Velocity]on 11-14-2024 ESR (Bld) [Velocity] 2 mm/h [facility] Interpretation and review of laboratory results Normal [facility] ESR (Bld) [Velocity] 2 mm/h Normal 0-15 [facility] Comment on above: Order Comment: Kelsi huff Type: BLOOD SPECIMENOrdering Facility: [facility] Address: [address] [place] [address] Performed By: #### 4 537-7 ####[facility] LABCLIA [id number] [address] [place] XR FEMUR 2V [...] Extensive vascular calcifications. IMPRESSION: No acute abnormality Drawing Checker: CARMELA Transcribe Date/Time: Nov 16 2024 8:07A Dictated by : SONG DE LA GARZA MD This examination was interpreted and the report reviewed and electronically signed by: SONG DE LA GARZA MD on Nov 16 2024 8:09AM EST [id number] [facility] 11-10-2024 [place] Telephone (MATTSE) -- STACIEMAURI Delcid ([id number]) 1955 M Date Time Provider Department 11/10/24 NUPUR DE LA ROSA During your visit today, we recorded the following information about you: Isabela Rosado, SULTANA 11/10/2024 1:28 PM Signed Spoke with patient [...] PM Signed I called to talk with Harrison but there was no answer. I will try again later today. PASTOR Calderon Robert S, PA-C 11/10/2024 3:08 PM Signed I called but still no answer. I will try again today or tomorrow. PASTOR Calderon Robert S, PA-C 11/10/2024 4:58 PM Signed Isabela please ask schedulers to call Harrison to help set up an office follow up. Thank you Isabela Thurston, SULTANA 11/11/2024 7:21 AM Signed I talked with Harrison. He denies new trauma but c/o sharp pain in groin and anterior thigh with hip flexion. He has a KEMAR and TKA on this side with a retrograde minesh for an old periprosthetic knee fracture. Harrison also wears a knee brace to help with instability of the total knee. I will ask our schedulers to call Harrison to help set up a visit and [...] tablet by mouth every morning. - Insulin Ridge, Disposable, (BD ULTRA-FINE GOLDY PEN NEEDLE) 32 [...] Shook, PharmD Problem List As Of Date 11/10/2024 [...] [N17.9] 03/24/2019 12/02/2021 CKD (chronic kidney disease) stag (more content not included)... Normal [facility] Aniket 11-09-2024 CNPN Telephone (MEPRAD) -- MAURI QUINONES ([id number]) 1955 Date Time Provider Department 11/09/24 KOLTON HEIN [...] tablet by mouth every morning. - Insulin Ridge, Disposable, (BD ULTRA-FINE GOLDY PEN NEEDLE) 32 [...] are managed by this patient by: SPOUSE Anitonette Shook, PharmD Problem List As Of Date [...] [Z01.818] 04/20/2023 (more content not included)... Normal [facility] Cardiology Visit Reporton Cardiology Visit Report [facility] [address] [place] [address] OFFICE VISIT Date of Service: 10/28/24 MR#: [id number] Acct: [id number] Name: MAURI QUINONES Rep #: [id number] : 1955 Provider: Dr. Jensen karimi MD Age/Sex: 68/M Location: [facility] Status: Signed HPI HPI History of Present Illness Details: Patient is a 68-year-old white male that comes in his today for monitoring of his cardiovascular status. He has known history of coronary disease status post bypass graft surgery at [facility] March 2017. He received a [...] room air Intake Visit Reasons: 9 M Collector Required: No Accompanied by: Is patient in [...] 12.5 mg tablet See Rx Instructions .Route 07/21/ 4 10/28/24 Rx .COMPLEX #180 tabs hydroxyzine HCl 25 mg tablet 25 mg PO Q6 PRN itch 10/28/24 03/0 12/19 History insulin glargine 100 unit/mL (3 10 [...] effusion HTN (hypertension) Ventricular tachyarrhythmia Atherosclerosis of [facility] cross co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 pectoris Pulmonary HTN Cardiomyopathy Valvular (more content not included)... [facility] Visit (ORNA ) -- STACIEMAURI ([id number]) 1955 M Date Time Provider Department 10/17/24 4:15 PM NUPUR DE LA ROSA During your visit today, we recorded the following information about you: Nupur De La Rosa MD 11/14/2024 9:56 PM Signed REASON FOR VISIT / CHIEF COMPLAINT CHIEF COMPLAINT: Mauri Del Rosariontyre is a 69 year old male who presents today for follow up office visit. Patient presents with: Right Knee - Follow Up HISTORY OF PRESENT ILLNESS (HPI) PAIN EVALUATION 10/17/2024 5883 Pain Level: 6 Pain Location: Knee-Right Description: [...] Acute on chronic diastolic congestive heart failure ([facility]) 07/14/2018 GARRET (acute kidney injury) ([facility]) 03/24/2019 GARRET (acute kidney injury) ([facility]) 03/24/2019 Ankylosing spondylitis ([facility]) CAD (coronary artery disease) Cellulitis Chronic combined systolic and diastolic CHF (congestive heart failure) ([facility]) 03/24/2019 CKD (chronic kidney disease) stage 3, GFR 30-59 ml/min ([facility]) 03/24/2019 Constipation Diabetes ([facility]) Gout High phosphate levels 03/24/2019 History of [...] valve calcifi NSTEMI (non-ST elevated myocardial infarction) ([facility]) 03/12/2017 [facility] admit Osteoarthritis Transition of care performed with sharing of clinical summary 04/08/2019 Admit [facility] 03/21/19-03/22/19 Discharge diagnoses chronic kidney disease with worsening creatinine, acute kidney injury Hypokalemia Toxic encephalopathy secondary to Flexeril overusage Type 2 diabetes Ischemic cardiomyopathy Coronary artery disease Ligamental cervical neck strain and acute Pulmonary hypertension Hypertension Pyuria Preadmit: to [facility] ED with slurred speech, lethargy. PAST [...] we contin (more content not included)... Normal [facility] Aniket 10-08-2024 [place] Telephone (FAMPWS) -- MAURI QUINONES ([id number]) 1955 M Date Time Provider Department 10/08/24 ALEXUS MENDEZ During your visit today, we recorded the following information about you: Alicia CantuERIK 10/08/2024 4:49 PM Signed [facility] sends fax stating that Ammonium lactate lotion should be changed to cream. Called to [facility] and left message to call and speak with nurse. Was patient able to grain picker prescription of do they in fact need this changed? Bryce Landin, SULTANA 10/08/2024 6:05 PM Signed Pt called in [...] October 08, 2024 6:05 PM Alexus Mendez APRN.THEATRICAL PERFORMER 10/09/2024 8:00 AM Signed Creme was ordered. Bryce Landin RN 10/09/2024 10:06 AM Signed Pts called and is notified of providers message. She voices understanding. Bryce Landin RN Allergies As of Date: 10/08/2024 Noted Allergy Reaction LYRICA (PREGABALIN) 03/23/2017 7 - Swelling Date Reviewed: 10/07/2024 Reviewed by: Leah Grag MA - Fully Assessed Reason for Visit: [...] tablet by mouth every morning. - Insulin Ridge, Disposable, (BD ULTRA-FINE GOLDY PEN NEEDLE) 32 [...] kidney disease) (more content not included)... Normal [facility] CNOVon 10-07-2024 CNOV Office Visit (FAMPWS ) -- MAURI QUINONES ([id number]) 1955 M Date Time Provider Department 10/07/24 2:40 PM ALEXUS MENDEZPWS During your visit today, we recorded the following information about you: Pulse Respiration Blood pressure Weight 78/minute 16/minute 116/64 77.1 kg Alexus Mendez APRN.THEATRICAL PERFORMER 10/07/2024 3:14 PM Signed This is a [...] Acute on chronic diastolic congestive heart failure ([facility]) 07/14/2018 GARRET (acute kidney injury) ([facility]) 03/24/2019 GARRET (acute kidney injury) ([facility]) 03/24/2019 Ankylosing spondylitis ([facility]) CAD (coronary artery disease) Cellulitis Chronic combined systolic and diastolic CHF (congestive heart failure) ([facility]) 03/24/2019 CKD (chronic kidney disease) stage 3, GFR 30-59 ml/min ([facility]) 03/24/2019 Constipation Diabetes ([facility]) Gout High phosphate levels 03/24/2019 History of [...] valve calcifi NSTEMI (non-ST elevated myocardial infarction) ([facility]) 03/12/2017 [facility] admit Osteoarthritis Transition of care performed with sharing of clinical summary 04/08/2019 Admit [facility] 03/21/19-03/22/19 Discharge diagnoses chronic kidney disease with worsening creatinine, acute kidney injury Hypokalemia Toxic encephalopathy secondary to Flexeril overusage Type 2 diabetes Ischemic cardiomyopathy Coronary artery disease Ligamental cervical neck strain and acute Pulmonary hypertension Hypertension Pyuria Preadmit: to [facility] ED with slurred speech, lethargy. PAST [...] 1 tablet by mouth every morning. Insulin Ridge, Disposable, (BD ULTRA-FINE GOLDY PEN NEEDLE) 32 [...] Use Sm (more content not included)... Normal [facility] CNPNon 10-06-2024 CNPN Telephone (ORMDNA) -- MAURI QUINONES ([id number]) 1955 M Date Time Provider Department 10/06/24 NUPUR DE LA ROSA ORFABIOLA During your [...] offer one of the open slots on 10/08 rupali. Aleshia Vázquez 10/06/2024 12:49 PM Signed Patient scheduled with Dr De La Rosa on 10/08/2024 Allergies As of Date: 10/06/2024 Noted Allergy Reaction LYRICA (PREGABALIN) 03/23/2017 7 - Swelling Date Reviewed: 09/04/2024 Reviewed by: Alexus Mendez APRN.THEATRICAL PERFORMER - Fully Assessed Reason for Visit: Appointment [...] tablet by mouth every morning. - Insulin Ridge, Disposable, (BD ULTRA-FINE GOLDY PEN NEEDLE) 32 [...] Rogelzoie, PharmD Problem List As Of Date 10/06/2024 [...] [J90] 07/14/2018 12/02/2021 PVD (peripheral vascular disease) ([facility]) [I73.9] 07/16/2018 Altered mental status [R41.82] 03/24/2019 [...] IV (rodger (more content not included)... Normal [facility] CNOVon 09-22-2024 CNOV Office Visit (ORMDNA ) -- MAURI QUINONES ([id number]) 1955 M Date Time Provider Department 09/22/24 2:00 PM MACO RIVERA During your visit today, we recorded the following information about you: Maco Rivera PA-C 09/22/2024 4:18 PM Signed SERVICE DATE: September 22, 2024 PCP: Rigoberto Gould MD Patient was self-referred. Subjective Patient ID: Harrison is a 68 year old male. Chief Complaint: Patient presents with: Right Hip - New, Pain PAIN EVALUATION 09/22/2024 1351 Pain Location: Hip-Right Description: Radiating;Sharp;Sore;Achin g radiates through the thigh to knee (along the past incision surgical line) Frequency: Intermittent Intervention/Comfort measure: Medication;Support surface;Imagery tylenol Comments: wearing hinged brace Harrison comes today c/o right knee pain. The knee [place] [address] Peguero and Harrison states he did well until he had a per-prosthetic femur fracture. He had the fracture plated then went on the break the plate, requiring a retrograde minesh which was done in March of 2023. Harrison said he was doing well until a month ago. He denies trauma but has had increased pain and swelling of the right knee. He wears a TROM brace when up and uses a walker for ambulation. Harrison takes 1,500 mg of tylenol at night [...] Complication, With Long-Term Current Use of Insulin (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) Pvd (Peripheral Vascular Disease) ([facility]) Chronic Combined Systolic and Diastolic Chf (Congestive Heart Failure) (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) Osteopenia, Senile Other Fracture of Right Femur, Initial Encounter for Closed Fracture ([facility]) Blood Loss Anemia Johny (Obstructive Sleep Apnea) Thoracic Compression Fracture, Closed, Initial Encounter ([facility]) Esrd (End Stage Renal Disease) On Dialysis ([facility]) Fracture, Femur, Supracondylar, Right, Open Type I Or II, Initial Encounter ([facility]) Abnormal Ekg Chronic Kidney Disease (Ckd), Stage V ([facility]) Hx of Cabg Preoperative Examination PAST MEDICAL HISTORY Diagnosis Date Acute on chronic diastolic congestive heart failure ([facility]) 07/14/2018 GARRET (acute kidney injury) ([facility]) 03/24/2019 GARRET (acute kidney injury) ([facility]) 03/24/2019 Ankylosing spondylitis ([facility]) CAD (coronary artery disease) Cellulitis Chronic combined systolic and diastolic CHF (congestive heart failure) ([facility]) 03/24/2019 CKD (chronic kidney disease) stage 3, GFR 30-59 ml/min ([facility]) 03/24/2019 Constipation Diabetes ([facility]) Gout High phosphate levels 03/24/2019 History of [...] NSTEMI (non-ST elevated myocardial infarction) (HCC) 03/12/2017 [facility] admit Osteoarthritis Transition of care performed with sharing of clinical summary 04/08/2019 Admit [facility] 03/21/19-03/22/19 Discharge diagnoses chronic kidney disease with worsening creatinine, acute kidney injury Hypokalemia Toxic encephalopathy secondary to Flexeril overusage Type 2 diabetes Ischemic cardiomyopathy Coronary artery disease Ligamental cervical neck strain and acute Pulmonary hypertension Hypertension Pyuria Preadmit: to [facility] ED with slurred speech, lethargy. PAST SURGICAL HISTORY Procedure Laterality Date ARTHRP ACETBLR/PROX FEM PROSTC AGRFT/ALGRFT Right 2019 Dr Peguero CORONARY ARTERY BYPASS GRAFT 04/12/2017 x 3 FEMUR RIGHT OP SURGERY Right Repair of fracture with hardward HIP SURGERY HX Right pin KNEE ARTHROSCOPY Left x2 KNEE YUMIKO (more content not included)... Normal [facility] XR FEMUR 2V AP/LAT RTon 08-28 XR FEMUR 2V AP/LAT RT * * *Final Report* * * DATE OF EXAM: Sep 22 2024 1:56PM LIUDMILA 5333 - XR FEMUR 2V AP/LAT RT / PROCEDURE REASON: multiple diagnoses * * * * Physician Interpretation * * * * PROCEDURE: Pelvis and right femur INDICATION: Pain in right hip .right hip pain (accession [id number]), acute pain right knee (accession [id number]) TECHNIQUE: XR PELVIS 1V AP, XR FEMUR [...] the knee. 2. Healing distal femoral fracture Drawing Checker: [facility] Transcribe Date/Time: Sep 24 2024 7:14A Dictated by : SONG DE LA GARZA MD This examination was interpreted and the report reviewed and electronically signed by: SONG DE LA GARZA MD on Sep 24 2024 7:19AM EST [id number] [facility] XR PELVIS 1V APon 09-22-2024 XR PELVIS 1V AP * * *Final Report* * * DATE OF EXAM: Sep 22 2024 1:56PM LIUDMILA 5239 - XR PELVIS 1V AP / PROCEDURE REASON: M25.551-Pain in right hip * * * * Physician Interpretation * * * * PROCEDURE: Pelvis and right femur INDICATION: Pain in right hip .right hip pain (accession [id number]), acute pain right knee (accession [id number]) TECHNIQUE: XR PELVIS 1V AP, XR FEMUR [...] the knee. 2. Healing distal femoral fracture Drawing Checker: [facility] Transcribe Date/Time: Sep 24 2024 7:14A Dictated by : SONG DE LA GARZA MD This examination was interpreted and the report reviewed and electronically signed by: SONG DE LA GARZA MD on Sep 24 2024 7:19AM EST [id number] [facility] CNOVon 09-04-2024 CNOV Office Visit (FAMPWS ) -- MAURI QUINONES ([id number]) 1955 M Date Time Provider Department 09/04/24 8:00 AM ALEXUS MENDEZ During your visit today, we recorded the following information about you: Temperature Pulse Blood pressure 97 degrees 91/minute 122/60 Alexus Mendez, ENTRY LEVEL STAFF ACCOUNTANT.THEATRICAL PERFORMER 09/04/2024 8:32 AM Addendum This is a [...] failure (HCC) 07/14/2018 GARRET (acute kidney injury) ([facility]) 03/24/2019 GARRET (acute kidney injury) ([facility]) 03/24/2019 Ankylosing spondylitis ([facility]) CAD (coronary artery disease) Cellulitis Chronic combined systolic and diastolic CHF (congestive heart failure) ([facility]) 03/24/2019 CKD (chronic kidney disease) stage 3, GFR 30-59 ml/min ([facility]) 03/24/2019 Constipation Diabetes ([facility]) Gout High phosphate levels 03/24/2019 History of [...] NSTEMI (non-ST elevated myocardial infarction) (HCC) 03/12/2017 [facility] admit Osteoarthritis Transition of care performed with sharing of clinical summary 04/08/2019 Admit [facility] 03/21/19-03/22/19 Discharge diagnoses chronic kidney disease with worsening creatinine, acute kidney injury Hypokalemia Toxic encephalopathy secondary to Flexeril overusage Type 2 diabetes Ischemic cardiomyopathy Coronary artery disease Ligamental cervical neck strain and acute Pulmonary hypertension Hypertension Pyuria Preadmit: to [facility] ED with slurred speech, lethargy. PAST [...] 1 tablet by mouth every morning. Insulin Ridge, Disposable, (BD ULTRA-FINE GOLDY PEN NEEDLE) 32 [...] ophthalmic solution (more content not included)... Normal [facility] 09-03-2024 [facility] [place] Telephone (FAMPWS) -- MAURI QUINONES ([id number]) 1955 M Date Time Provider Department 09/03/24 [...] Date Reviewed: 06/30/2024 Reviewed by: Alexus Mendez APRN.THEATRICAL PERFORMER - Fully Assessed Reason for Visit: Patient Update [1234] Prescriptions as of 09/03/2024 - Tadalafil (CIALIS) 20 mg tablet Take 1 tablet by mouth once daily as needed. Do not take at same time as doxazosin - pantoprazole DR (PROTONIX) 40 mg tablet Take 1 tablet by mouth every morning. - Insulin Ridge, Disposable, (BD ULTRA-FINE GOLDY PEN NEEDLE) 32 [...] Shook, PharmD Problem List As Of Date 09/03/2024 [...] of trans*02 (more content not included)... Normal [facility] CNPNon 09-01-2024 CNPN Telephone ([place]) -- MAURI QUINONES ([id number]) 1955 M Date Time Provider Department 09/01/24 RIGOBERTO GOULD During your visit today, we recorded the following information about you: Bryce Landin, SULTANA 09/01/2024 1:57 PM Signed Pt called in [...] PM Signed Sent message to Pt in [facility] as he asked. Allergies As of Date: 09/01/2024 Noted Allergy Reaction LYRICA (PREGABALIN) 03/23/2017 7 - Swelling Date Reviewed: 06/30/2024 Reviewed by: Alexus Mendez APRN.THEATRICAL PERFORMER - Fully Assessed Reason for Visit: Patient Update [1234] Patient Question [8996] Prescriptions as of 09/01/2024 - Tadalafil (CIALIS) 20 mg tablet Take 1 tablet by mouth once daily as needed. Do not take at same time as doxazosin - pantoprazole DR (PROTONIX) 40 mg tablet Take 1 tablet by mouth every morning. - Insulin Ridge, Disposable, (BD ULTRA-FINE GOLDY PEN NEEDLE) 32 [...] Shook, PharmD Problem List As Of Date 09/01/2024 [...] ventricular tachycardi (more content not included)... Normal [facility] CNPNon 08-25-2024 CNPN Telephone ([facility]) -- MAURI QUINONES ([id number]) 1955 M Date Time Provider Department 08/25/24 NUPUR DE LA ROSA ORFABIOLA During your visit today, we recorded the following information about you: Isabela Rosado, SULTANA 08/25/2024 1:47 PM Signed Patient calling with pain between right hip and knee Please call pt and offer Friday 09/01 with Luciana Pena 08/25/2024 2:01 PM Signed Lvm for patient to call back and schedule with Cara on sunday Allergies As of Date: 08/25/2024 Noted Allergy Reaction LYRICA (PREGABALIN) 03/23/2017 7 - Swelling Date Reviewed: 06/30/2024 Reviewed by: Alexus Mendez APRN.THEATRICAL PERFORMER - Fully Assessed Reason for Visit: Appointment [186] Prescriptions as of 08/28/2024 - Tadalafil (CIALIS) 20 mg tablet Take 1 tablet by mouth once daily as needed. Do not take at same time as doxazosin - pantoprazole DR (PROTONIX) 40 mg tablet Take 1 tablet by mouth every morning. - Insulin Ridge, Disposable, (BD ULTRA-FINE GOLDY PEN NEEDLE) 32 [...] Fracture, femur (more content not included)... Normal [facility] 07-15-2024 CNPN Telephone (FAMPWS) -- MAURI QUINONES ([id number]) 1955 M Date Time Provider Department 07/15/24 [facility] During your visit today, we recorded the following information about you: Alexus Mendez APRN.THEATRICAL PERFORMER 07/15/2024 12:48 PM Signed Lab work from [...] Date Reviewed: 06/30/2024 Reviewed by: Alexus Mendez APRN.THEATRICAL PERFORMER - Fully Assessed Prescriptions as of 07/15/2024 - Tadalafil (CIALIS) 20 mg tablet Take 1 tablet by mouth once daily as needed. Do not take at same time as doxazosin - pantoprazole DR (PROTONIX) 40 mg tablet Take 1 tablet by mouth every morning. - Insulin Ridge, Disposable, (BD ULTRA-FINE GOLDY PEN NEEDLE) 32 [...] Granadossteven, PharmD Problem List As Of Date 07/15/2024 [...] [J90] 07/14/2018 12/02/2021 PVD (peripheral vascular disease) ([facility]) [I73.9] 07/16/2018 Altered mental status [R41.82] 03/24/2019 [...] (upper gastrointestin (more content not included)... Normal [facility] CNOVon 06-30-2024 CNOV Office Visit (FAMPWS ) -- MAURI QUINONES ([id number]) 1955 M Date Time Provider Department 06/30/24 12:40 PM ALEXUS MENDEZ [facility] During your visit today, we recorded the following information about you: Pulse Respiration Blood pressure Weight 60/minute 16/minute 118/62 77.6 kg Alexus Mendez APRN.THEATRICAL PERFORMER 06/30/2024 1:21 PM Signed This is a [...] Acute on chronic diastolic congestive heart failure ([facility]) 07/14/2018 GARRET (acute kidney injury) ([facility]) 03/24/2019 GARRET (acute kidney injury) ([facility]) 03/24/2019 Ankylosing spondylitis ([facility]) CAD (coronary artery disease) Cellulitis Chronic combined systolic and diastolic CHF (congestive heart failure) ([facility]) 03/24/2019 CKD (chronic kidney disease) stage 3, GFR 30-59 ml/min ([facility]) 03/24/2019 Constipation Diabetes ([facility]) Gout High phosphate levels 03/24/2019 History of [...] valve calcifi NSTEMI (non-ST elevated myocardial infarction) ([facility]) 03/12/2017 [facility] admit Osteoarthritis Transition of care performed with sharing of clinical summary 04/08/2019 Admit [facility] 03/21/19-03/22/19 Discharge diagnoses chronic kidney disease with worsening creatinine, acute kidney injury Hypokalemia Toxic encephalopathy secondary to Flexeril overusage Type 2 diabetes Ischemic cardiomyopathy Coronary artery disease Ligamental cervical neck strain and acute Pulmonary hypertension Hypertension Pyuria Preadmit: to [facility] ED with slurred speech, lethargy. PAST [...] Social Histo (more content not included)... Normal [facility] Aniket 06-30-2024 [facility] [facility] -- MAURI QUINONES ([id number]) 1955 M Date Time Provider Department 06/30/24 ALEXUS EMNDEZ During your visit today, we recorded the following information about you: Garrison Olmedo MA 06/30/2024 5:24 PM Signed Fax received from [facility] that Lantus Solostar is not covered [...] provider sent in prescription for Cialis to [facility]? Please review and advise, Farrah Hastings RN Allergies As of Date: 06/30/2024 Noted Allergy Reaction LYRICA (PREGABALIN) 03/23/2017 7 - Swelling Date Reviewed: 06/30/2024 Reviewed by: Alexus Mendez APRN.THEATRICAL PERFORMER - Fully Assessed Reason for Visit: Medication [...] tablet by mouth every morning. - Insulin Ridge, Disposable, (BD ULTRA-FINE GOLDY PEN NEEDLE) 32 [...] [J90] 07/14/2018 12/02/2021 PVD (peripheral vascular disease) ([facility]) [I73.9] 07/16/2018 Altered mental status [R41.82] 03/24/2019 07/05/2019 UTI (urinary tract infection) [N39.0] 03/24/2019 12/02/2021 Chronic combined systolic and diastolic CHF (co*03/24/2019 Hyperkalemia [E87.5] 03/24/2019 12/02/2021 Hypoxia [R09.02] 03/24/2019 12/02/2021 Hypoalbuminemia [E88.09] 03/24/2019 12/02/2021 GARRET (acute kidney injury) ([facility]) [N17.9] 03/24/2019 12/02/2021 CKD (chronic kidney disease) stage 3, GFR 30-59*03/24/2019 04/18/2019 High phosphate levels [E83.39] 03/24/2019 12/02/2021 Hyponatremia [E87.1] 03/24/2019 12/02/2021 Delirium [R41.0] 03/29/2019 12/02/2021 Malnutrition of mode (more content not included)... Normal [facility] CNOVon 06-25-2024 CNOV Office Visit ([facility] ) -- MAURI QUINONES ([id number]) 1955 M Date Time Provider Department 06/25/24 [...] Acute on chronic diastolic congestive heart failure ([facility]) 07/14/2018 GARRET (acute kidney injury) ([facility]) 03/24/2019 GARRET (acute kidney injury) ([facility]) 03/24/2019 Ankylosing spondylitis ([facility]) CAD (coronary artery disease) Cellulitis Chronic combined systolic and diastolic CHF (congestive heart failure) ([facility]) 03/24/2019 CKD (chronic kidney disease) stage 3, GFR 30-59 ml/min ([facility]) 03/24/2019 Constipation Diabetes ([facility]) Gout High phosphate levels 03/24/2019 History of [...] NSTEMI (non-ST elevated myocardial infarction) (HCC) 03/12/2017 [facility] admit Osteoarthritis Transition of care performed with sharing of clinical summary 04/08/2019 Admit [facility] 03/21/19-03/22/19 Discharge diagnoses chronic kidney disease with worsening creatinine, acute kidney injury Hypokalemia Toxic encephalopathy secondary to Flexeril overusage Type 2 diabetes Ischemic cardiomyopathy Coronary artery disease Ligamental cervical neck strain and acute Pulmonary hypertension Hypertension Pyuria Preadmit: to [facility] ED with slurred speech, lethargy. PAST [...] DATE OF EXAM: Jun 25 2024 11:26AM MDO 5297 - XR ANKLE 3V AP/LAT/OBL RT / PROCEDURE REASON: [id number] * * * * Physician Interpretation * [...] anterior h (more content not included)... Normal [facility] XR ANKLE 3V AP/LAT/OBL RTon 06-25-2024 XR ANKLE 3V AP/LAT/OBL RT * * *Final Report* * * DATE OF EXAM: Jun 25 2024 11:26AM LIUDMILA 5297 - XR ANKLE 3V AP/LAT/OBL RT / PROCEDURE REASON: [id number] * * * * Physician Interpretation * [...] similar in appearance to the previous study [facility] Trans[facility] Date/Time: Jun 26 2024 10:30A Dictated by : OSMAN JORDAN DO This examination was interpreted and the report reviewed and electronically signed by: OSMAN JORDAN DO on Jun 26 2024 10:31AM EST [id number] [facility] CNOVon 05-19-2024 OV Office Visit (ORMDNA ) -- MAURI QUINONES ([id number]) 1955 M Date Time Provider Department 05/19/24 [...] failure (HCC) 07/14/2018 GARRET (acute kidney injury) ([facility]) 03/24/2019 GARRET (acute kidney injury) ([facility]) 03/24/2019 Ankylosing spondylitis ([facility]) CAD (coronary artery disease) Cellulitis Chronic combined systolic and diastolic CHF (congestive heart failure) ([facility]) 03/24/2019 CKD (chronic kidney disease) stage 3, GFR 30-59 ml/min ([facility]) 03/24/2019 Constipation Diabetes ([facility]) Gout High phosphate levels 03/24/2019 History of [...] NSTEMI (non-ST elevated myocardial infarction) (HCC) 03/12/2017 [facility] admit Osteoarthritis Transition of care performed with sharing of clinical summary 04/08/2019 Admit [facility] 03/21/19-03/22/19 Discharge diagnoses chronic kidney disease with worsening creatinine, acute kidney injury Hypokalemia Toxic encephalopathy secondary to Flexeril overusage Type 2 diabetes Ischemic cardiomyopathy Coronary artery disease Ligamental cervical neck strain and acute Pulmonary hypertension Hypertension Pyuria Preadmit: to [facility] ED with slurred speech, lethargy. PAST [...] La Rosa M.D. Department of Orthopaedic Surgery [facility] Allergies As of Date: 05/19/2024 Noted Allergy Reaction LYRICA (PREGABALIN) 03/23/2017 7 - Swelling Date Review (more content not included)... Normal [facility] XR Ankle - right AP and Late ral and obliqueon 05-10-2024 IMPRESSION: Navicula r stress fracture. Drawing Checker: CAR[facility]A Transcribe Date/Time: May 10 2024 3:02P Dictated by : SONG DE LA GARZA MD This examination was interpreted and the report reviewed and electronically signed by: SONG DE LA GARZA MD on May 10 2024 3:17PM [facility] * * *Final Report* * * [...] swelling and advanced vascular calcifications again noted. [facility] Provider, Phyllis Camp - 05/10/2024 * [...] again noted. IMPRESSION IMPRESSION: Navicular stress fracture. Drawing Checker: [employer] Transcribe Date/Time: May 10 2024 3:02P Dictated by : SONG DE LA GARZA MD This examination was interpreted and the report reviewed and electronically signed by: SONG DE LA GARZA MD on May 10 2024 3:17PM EST [facility] XR Ankle - right AP and Late ral and obliqueOrdered By: Ccf Provider on 05-10-2024 [facility] CNOVon 05-07-2024 CNOV Office Visit (ORMDNA ) -- MAURI QUINONES ([id number]) 1955 M Date Time Provider Department 05/07/24 [...] again noted. Impression: IMPRESSION: Navicular stress fracture. Drawing Checker: [facility] Transcribe Date/Time: May 10 2024 3:02P [...] [M84.374A] Order(s):XR ANKLE GENERAL 3V AP/LAT/OBL RIGHT [[id number]] Order #: [id number] FUTURE Prescriptions as of 06/04/2024 - loratadine [...] by mouth (more content not included)... Normal [facility] XR ANKLE 3V AP/LAT/OBL RTon 05-07-2024 [...] calcifications again noted. IMPRESSION: Navicular stress fracture. Drawing Checker: CARMELA Transcribe Date/Time: May 10 2024 3:02P Dictated by : SONG DE LA GARZA MD This examination was interpreted and the report reviewed and electronically signed by: SONG DE LA GARZA MD on May 10 2024 3:17PM EST [id number] Normal [facility] XR Ankle - right AP and Late ral and obliqueon 05-07-2024 Radiology Study observation (narrative) [facility] CNPNon 04-15-2024 CNPN Telephone ([facility]) -- MAURI QUINONES ([id number]) 1955 M Date Time Provider Department 04/15/24 [...] Boone, PharmD Problem List As Of Date 04/15/2024 [...] [E83.39] 03/24 (more content not included)... Normal [facility] XR Knee - right AP and Later al and obliqueon 04-05-2024 IMPRESSION: No acute abnormality Drawing Checker: CARMELA Transcribe Date/Time: Apr 05 2024 4:22P Dictated by : SONG DE LA GARZA MD This examination was interpreted and the report reviewed and electronically signed by: SONG DE LA GARZA MD on Apr 05 2024 4:24PM EST [facility] * * *Final Report* * * DATE OF EXAM: Apr 02 2024 1:37PM MDO 5205 - XR KNEE 4V AP/LAT/OBLS [...] again noted. Advanced vascular calcifications are noted. [facility] Provider, Phyllis Camp - 04/05/2024 * * *Final Report* * * DATE OF EXAM: Apr 02 2024 1:37PM MDClay 5205 - XR KNEE 4V AP/LAT/OBLS RT [...] are noted. IMPRESSION IMPRESSION: No acute abnormality Drawing Checker: [facility] Transcribe Date/Time: Apr 05 2024 4:22P Dictated by : SONG DE LA GARZA MD This examination was interpreted and the report reviewed and electronically signed by: SONG DE LA GARZA MD on Apr 05 2024 4:24PM EST [facility] XR Knee - right AP and Later al and obliqueOrdered By: Ccf Provider on 04-05-2024 [facility] CNOVon 04-02-2024 CNOV Office Visit ([facility]MDNA ) -- MAURI QUINONES ([id number]) 1955 M Date Time Provider Department 04/02/24 1:45 PM NUPUR DE LA ROSA During your [...] are noted. Impression: IMPRESSION: No acute abnormality Drawing Checker: CARMELA Transcribe Date/Time: Apr 05 2024 4:22P [...] MD Referring Provider: NUPUR DE LA ROSA [[id number]] Allergies As of Date: 04/02/2024 Noted Allergy [...] by: SPOUSE (more content not included)... Normal [facility] XR KNEE 4V AP/LAT/OBLS RTon 04-02-2024 [...] calcifications are noted. IMPRESSION: No acute abnormality Drawing Checker: [facility] Transcribe Date/Time: Apr 05 2024 4:22P Dictated by : SONG DE LA GARZA MD This examination was interpreted and the report reviewed and electronically signed by: SONG DE LA GARZA MD on Apr 05 2024 4:24PM EST [id number] Normal [facility] XR Knee - right AP and Later al and obliqueon 04-02-2024 Radiology Study observation (narrative) [facility] CNOVon 03-27-2024 CNOV Office Visit (FAMPWS ) -- MAURI QUINONES ([id number]) 1955 Date Time Provider Department 03/27/24 12:40 PM [facility]ENDEZ [facility] During your visit today, we recorded the following information about you: Pulse Blood pressure 66/minute 158/82 Alexus Mendez APRN.THEATRICAL PERFORMER 03/27/2024 1:02 PM Signed This is a 68 year old male who presents today with: Patient presents with: Mass: Pain and lump near belly button for one week. HISTORY OF PRESENT ILLNESS: Mauri Farhana Quinones is a 68 year old male. [...] failure (HCC) 03/24/2019: GARRET (acute kidney injury) ([facility]) 03/24/2019: GARRET (acute kidney injury) ([facility]) No date: Ankylosing spondylitis ([facility]) No date: CAD (coronary artery disease) No date: Cellulitis 03/24/2019: Chronic combined systolic and diastolic CHF (congestive heart failure) ([facility]) 03/24/2019: CKD (chronic kidney disease) stage 3, GFR 30-59 ml/min ([facility]) No date: Constipation No date: Diabetes ([facility]) No date: Gout 03/24/2019: High phosphate levels [...] calcifi 03/12/2017: NSTEMI (non-ST elevated myocardial infarction) ([facility]) Comment: [facility] admit No date: Osteoarthritis 04/08/2019: Transition of care performed with sharing of clinical summary Comment: Admit [facility] 03/21/19-03/22/19 Discharge diagnoses chronic kidney disease with worsening creatinine, acute kidney injury Hypokalemia Toxic encephalopathy secondary to Flexeril overusage Type 2 diabetes Ischemic cardiomyopathy Coronary artery disease Ligamental cervical neck strain and acute Pulmonary hypertension Hypertension Pyuria Preadmit: to [facility] ED with slurred speech, lethargy. PAST [...] injection pe (more content not included)... Normal [facility] XR Knee - right AP and Later al and obliqueon 03-04-2024 IMPRESSION: Possible healing fibular head fracture. No acute fracture. Drawing Checker: CARMELA Transcribe Date/Time: Mar 04 2024 8:06P Dictated by : SONG DE LA GARZA MD This examination was interpreted and the report reviewed and electronically signed by: SONG DE LA GARZA MD on Mar 04 2024 8:09PM [facility] * * *Final Report* * * [...] femoral fracture. Decreased size of joint effusion. [facility] Provider, Phyllis Camp - 03/04/2024 * [...] healing fibular head fracture. No acute fracture. Drawing Checker: PSCB Transcribe Date/Time: Mar 04 2024 8:06P Dictated by : SONG DE LA GARZA MD This examination was interpreted and the report reviewed and electronically signed by: SONG DE LA GARZA MD on Mar 04 2024 8:09PM [facility] XR Knee - right AP and Later al and obliqueOrdered By: Ccf Provider on 03-04-2024 [facility] CNOVon 03-03-2024 CNOV Office Visit ([facility] ) -- MAURI QUINONES ([id number]) 1955 M Date Time Provider Department 03/03/24 [...] Prasadharmeet, PharmD Problem List As Of Date 03/03/2024 [...] 3 (moder* (more content not included)... Normal [facility] XR KNEE 4V AP/LAT/OBLS RTon 03-03-2024 [...] healing fibular head fracture. No acute fracture. Drawing Checker: [facility] Transcribe Date/Time: Mar 04 2024 8:06P Dictated by : SONG DE LA GARZA MD This examination was interpreted and the report reviewed and electronically signed by: SONG DE LA GARZA MD on Mar 04 2024 8:09PM EST [id number] [facility] XR Knee - right AP and Later al and obliqueon 03-03-2024 Radiology Study observation (narrative) [facility] Aniket 02-15-2024 CNPN Telephone ([facility]) -- MAURI QUINONES ([id number]) 1955 M Date Time Provider Department 02/15/24 NUPUR DE LA ROSA During your visit today, we recorded the following information about you: Luciana Ferguson 02/15/2024 10:36 AM Signed [place] is calling Nupur De La Rosa MD [...] calling: self Call patient at: at home [phone] (home) [phone] (work) [phone] (cell) Was an appointment scheduled: No Closing statement: Symptom Call: Thank you for calling [facility], your call is very important. A nurse will call in approximately 2-4 hours during business hours. If this is an emergency, please contact 911. Isabela Lock, SULTANA 02/15/2024 10:56 AM Signed Left message for patient to return call. Isabela Rosado, RN 02/15/2024 11:37 AM Signed See Agilence message Allergies As of Date: 02/15/2024 Noted [...] Shook, PharmD Problem List As Of Date 02/15/2024 Noted [...] tachycardia [Z86 (more content not included)... Normal [facility] XR Ankle - right AP and Late ral and obliqueon 02-15-2024 IMPRESSION: No acute abnormality Drawing Checker: CARMELA Transcribe Date/Time: Feb 15 2024 7:43A Dictated by : SONG DE LA GARZA MD This examination was interpreted and the report reviewed and electronically signed by: SONG DE LA GARZA MD on Feb 15 2024 7:44AM EST [facility] * * *Final Report* * * DATE OF EXAM: Feb 13 2024 3:21PM MDO 5297 - XR ANKLE 3V AP/LAT/OBL [...] No soft tissue swelling. Advanced vascular calcifications. [facility] Provider, [facility] - 02/15/2024 * * *Final Report* * * DATE OF EXAM: Feb 13 2024 3:21PM MDO 5297 - XR ANKLE 3V AP/LAT/OBL [...] vascular calcifications. IMPRESSION IMPRESSION: No acute abnormality Drawing Checker: PSCB Transcribe Date/Time: Feb 15 2024 7:43A Dictated by : SONG DE LA GARZA MD This examination was interpreted and the report reviewed and electronically signed by: SONG DE LA GARZA MD on Feb 15 2024 7:44AM EST [facility] XR Knee - right AP and Later al and obliqueon 02-15-2024 IMPRESSION: Joint effusion. Intact TKA Drawing Checker: CARMELA Transcribe Date/Time: Feb 15 2024 7:41A Dictated by : SONG DE LA GARZA MD This examination was interpreted and the report reviewed and electronically signed by: SONG DE LA GARZA MD on Feb 15 2024 7:43AM EST [facility] * * *Final Report* * * [...] fracture with intramedullary minesh. Advanced vascular calcifications. [facility] Provider, Phyllis Maher [facility] - 02/15/2024 * * *Final Report* [...] calcifications. IMPRESSION IMPRESSION: Joint effusion. Intact TKA Drawing Checker: CARMELA Transcribe Date/Time: Feb 15 2024 7:41A Dictated by : SONG DE LA GARZA MD This examination was interpreted and the report reviewed and electronically signed by: SONG DE LA GARZA MD on Feb 15 2024 7:43AM EST [facility] XR Knee - right AP and Later al and obliqueOrdered By: Ccf Provider on 02-15-2024 [facility] CNOVon 02-13-2024 CNOV Office Visit ([facility] ) -- MAURI QUINONES ([id number]) 1955 M Date Time Provider Department 02/13/24 2:15 PM NUPUR DE LA ROSA During your visit today, we recorded the following information about you: Flavio Rivera [employer] 02/15/2024 5:28 PM Signed PT ASSESSMENT - CASTING ROOM Mauri presents for Application of brace. Applied X-ROM knee support to Right knee set at 10 degrees flexion Patient has been instructed in Care of brace.. Flavio Rivera [employer] Nupur De La Rosa MD [...] Acute on chronic diastolic congestive heart failure ([facility]) 07/14/2018 GARRET (acute kidney injury) ([facility]) 03/24/2019 GARRET (acute kidney injury) ([facility]) 03/24/2019 Ankylosing spondylitis ([facility]) CAD (coronary artery disease) Cellulitis Chronic combined systolic and diastolic CHF (congestive heart failure) ([facility]) 03/24/2019 CKD (chronic kidney disease) stage 3, GFR 30-59 ml/min ([facility]) 03/24/2019 Constipation Diabetes ([facility]) Gout High phosphate levels 03/24/2019 History of [...] valve calcifi NSTEMI (non-ST elevated myocardial infarction) ([facility]) 03/12/2017 [facility] admit Osteoarthritis Transition of care performed with sharing of clinical summary 04/08/2019 Admit [facility] 03/21/19-03/22/19 Discharge diagnoses chronic kidney disease with worsening creatinine, acute kidney injury Hypokalemia Toxic encephalopathy secondary to Flexeril overusage Type 2 diabetes Ischemic cardiomyopathy Coronary artery disease Ligamental cervical neck strain and acute Pulmonary hypertension Hypertension Pyuria Preadmit: to [facility] ED with slurred speech, lethargy. PAST [...] 40 mg (more content not included)... Normal [facility] No Panel Informationon 02-12 Radiology Study observation (narrative) [facility] XR ANKLE 3V AP/LAT/OBL RTon 02-13-2024 [...] Advanced vascular calcifications. IMPRESSION: No acute abnormality Drawing Checker: CARMELA Transcribe Date/Time: Feb 15 2024 7:43A Dictated by : SONG DE LA GARZA MD This examination was interpreted and the report reviewed and electronically signed by: SONG DE LA GARZA MD on Feb 15 2024 7:44AM EST [id number] [facility] XR KNEE 4V AP/LAT/OBLS RTon 02-13-2024 XR [...] vascular calcifications. IMPRESSION: Joint effusion. Intact TKA Drawing Checker: PSCB Transcribe Date/Time: Feb 15 2024 7:41A Dictated by : SONG DE LA GARZA MD This examination was interpreted and the report reviewed and electronically signed by: SONG DE LA GARZA MD on Feb 15 2024 7:43AM EST [id number] [facility] 02-07-2024 [facility] Telephone ([facility]) -- MAURI QUINONES ([id number]) 1955 M Date Time Provider Department 02/07/24 NUPUR DE LA ROSA During your visit today, we recorded the following information about you: Isabela Rosado, SULTANA 02/07/2024 7:52 AM Signed Pt has been scheduled in a locked slot The locked slots are for DR. MCCONNELL OFFICE STAFF ONLY (please see heading) These are to be used ONLY when Dr De La Rosa is international organizer for [place] or [facility]-please do an error report on the [...] Shook, PharmD Problem List As Of Date 02/07/2024 Noted [...] dialysis (HCC* (more content not included)... [facility] QU[facility] ([id number]) 1955 M Date Time Provider Department 02/05/24 [facility] During your visit today, we recorded the following information about you: Rebecca Moe LPN 02/05/2024 11:27 AM Signed Rozina Sheth from [facility] calling patient had fall on 02/01 in [place] and has fractured tibial plateau right leg. He is back at home now. He and his are trying to get him in with Ramón Sauceda at [facility] he has seen previously. He needs [...] Shook, PharmD Problem List As Of Date 02/05/2024 Noted [...] [R94.31] 01/03/2023 (more content not included)... Normal [facility] XR Tibia and Fibula - right AP and Lateralon 11-11-2023 IMPRESSION: No acute abnormality Drawing Checker: CARMELA Transcribe Date/Time: Nov 11 2023 5:37P Dictated by : SONG DE LA GARAZ MD This examination was interpreted and the report reviewed and electronically signed by: SONG DE LA GARZA MD on Nov 11 2023 5:39PM [facility] DIVISION OF RADIOLOGY * * [...] body is seen. DIVISION OF RADIOLOGY Provider, Phyllis ching [place] - 11/11/2023 * * *Final Report* * [...] is seen. IMPRESSION IMPRESSION: No acute abnormality Drawing Checker: CARMELA Transcribe Date/Time: Nov 11 2023 5:37P Dictated by : SONG DE LA GARZA MD This examination was interpreted and the report reviewed and electronically signed by: SONG DE LA GARZA MD on Nov 11 2023 5:39PM EST [facility] XR Tibia and Fibula - right AP and LateralOrdered By: Ccf Provider on 11-11-2023 [facility] XR Tibia and Fibula - right AP and Lateralon 11-08-2023 Radiology Study observation (narrative) [facility] COVID NAAT, UPPER RESPIRATOR Y, ROUTINEon 05-18-2023 SARS-CoV-2 (COVID-19) RNA AMADOU+probe Ql (Resp) Not detected See comment [facility] ANES POSTPROC EVALon 023 ANES POSTPROC EVAL Normal [facility] ANES PRE-OPon 04-23-2023 ANES PRE-OP Normal [facility] Basic metabolic 2000 panelon 04-23-2023 Anion gap [Moles/Vol] 8 mmol/L Normal 5-16 [facility] Comment on above: Order Comment: Speci men Type: BLOOD SPECIMENOrdering Facility: [facility] Address: [address] [place] [address] Performed By: #### 2 4321-2 ####[facility] LABORATORYCLIA [id number] [place] [address] [place] Calcium [Mass/Vol] 9.3 mg/dL Normal 8.5-10.5 [facility] Comment on above: Order Comment: Speci men Type: BLOOD SPECIMENOrdering Facility: [facility] Address: [address] [place] [address] Performed By: #### 2 4321-2 ####[facility] LABORATORYCLIA [id number] [place] [address] [place] Chloride [Moles/Vol] 100 mmol/L Normal 98-107 [facility] Comment on above: Order Comment: Speci men Type: BLOOD SPECIMENOrdering Facility: [facility] Address: [address] [place] [address] Performed By: #### 2 4321-2 ####[facility] LABORATORYCLIA [id number] [place] [address] [place] CO2 [Moles/Vol] 33 mmol/L High 21-32 [facility] Comment on above: Order Comment: Speci men Type: BLOOD SPECIMENOrdering Facility: [facility] Address: [address] [address] Performed By: #### 2 4321-2 ####[facility] LABORATORYCLIA [id number] [place] [address] [place] Creatinine [Mass/Vol] 4.48 mg/dL High 0.50-1.40 [facility] Comment on above: Order Comment: Speci men Type: BLOOD SPECIMENOrdering Facility: [facility] Address: [address] [place] [address] Result Comment: Macrina ents receiving either N-Acetylcysteine (NAC) or Metamizole prior to venipuncture, may have falsely depressed results. Performed By: #### 2 4321-2 ####[facility] LABORATORYCLIA [id number] [place] [id number] [place] Creatinine and Glomerular filtration rate.predicted panel (S/P/Bld) 14 mL/min/1.73m??? Low >=60 [facility] Comment on above: Order Comment: Kelsi huff Type: BLOOD SPECIMENOrdering Facility: [facility] Address: [address] [address] Result Comment: Caryl mated Glomerular Filtration Rate [...] actual GFR. Performed By: #### 2 4321-2 ####[facility] LABORATORYCLIA [id number] [place] [address] [place] Glucose [Mass/Vol] 94 mg/dL Normal 70-100 [facility] Comment on above: Order Comment: Kelsi huff Type: BLOOD SPECIMENOrdering Facility: [facility] Address: [address] [place] [address] Result Comment: The [place] Diabetes Association (ADA) provides guidance for cutoff [...] Standards of Medical Care in Diabetes 2016, [place] [employer]. Diabetes Care. 2016.39(Suppl 1).Results may be falsely elevated after the administration of Sulfapyridine.Results may be falsely depressed after the administration of Sulfasalazine. Performed By: #### 2 4321-2 ####[facility]ORATORYCLIA [id number] [place] [address] [place] Potassium [Moles/Vol] 3.8 mmol/L Normal 3.5-5.1 [facility] Comment on above: Order Comment: Speci men Type: BLOOD SPECIMENOrdering Facility: [facility] Address: [address] [place] [address] Performed By: #### 2 4321-2 ####[facility]ORATORYCLIA [id number] [place] [address] [place] Sodium [Moles/Vol] 141 mmol/L Normal 136-145 [facility] Comment on above: Order Comment: Speci men Type: BLOOD SPECIMENOrdering Facility: [facility] Address: [address] [place] [address] Performed By: #### 2 4321-2 ####[facility]ORATORYCLIA [id number] [place] [address] [place] Urea nitrogen [Mass/Vol] 66 mg/dL High 7-26 [facility] Comment on above: Order Comment: Speci men Type: BLOOD SPECIMENOrdering Facility: [facility] Address: [address] [place] [address] Performed By: #### 2 4321-2 ####[facility] LABORATORYCLIA [id number] [place] [address] [place] OPERATIVE NOon 04-23-2023 OPERATIVE NO Normal [facility] STAPH AUREUS PCRon 3 S. aureus and MRSA panel AMADOU+probe (Nose) Normal Negative [facility] Comment on above: Order Comment: Speci men Type: SWAB OF INTERNAL NOSEOrdering Facility: [facility] Address: [address] [place] [address] Result Comment: Nega tive for Staphylococcus aureus by PCR.Negative for MRSA by PCR Performed By: #### S APCR ####[facility] LABORATORYCLIA [id number] [address] SURGICAL PATHOLOGYon 023 CASE REPORT Normal [facility] Comment on above: Order Comment: Speci men Type: DEVICE SPECIMENOrdering Facility: [facility] Address: [address] [place], [place] [address] Result Comment: Surg ical Pathology Report Case: [id number] Provider: Ramón Byrd MD Collected: 04/23/2023 08:24 AMOrdering Location: [facility] Received: 04/23/2023 10:43 AMPathologist: Dev Figueroa MDSpecimen: HARDWARE, Removed hardware right femur, gross only Performed By: #### S ####[facility]ORATORYCLIA [id number] [address] CLINICAL HISTORY Normal [facility] Comment on above: Order Comment: Speci men Type: DEVICE SPECIMENOrdering Facility: [facility] Address: [address] [place] [address] Result Comment: Pre- op diagnosis:Breakdown (mechanical) of internal fixation device of right femur, subsequent encounter [T84.114D]Periprosthetic fracture around internal prosthetic right hip joint, sequela [M97.01XS] Performed By: #### S ####[facility] LABORATORYCLIA [id number] [address] FINAL DIAGNOSIS [facility] Comment on above: Order Comment: Speci daria Type: DEVICE SPECIMENOrdering Facility: [facility] Address: [address] [place], [place] [address] Result Comment: A. R emoved hardware right femur, gross only: Medical metallic hardware consisting of one screw (gross examination only). Performed By: #### S ####[facility]ORATORYCLIA [id number] [address] FINAL PERFORMING LAB Normal [facility] Comment on above: Order Comment: Samanthai men Type: DEVICE SPECIMENOrdering Facility: [facility] Address: [address] [place], [place] [address] Result Comment: Diag nostic interpretation performed at [facility], [address] [place] [address] CLIA# [id number] Director: Jannet Rincon M.D. Performed By: #### S ####[facility] LABORATORYCLIA [id number] [address] GROSS DESCRIPTION A. HARDWARE [facility] Comment on above: Order Comment: Speci men Type: DEVICE SPECIMENOrdering Facility: [facility] Address: [address] [id number] Result Comment: Rece ived fresh labeled removed hardware right femur, gross only is one 8.1 x 0.7 x 0.7 cm screw without attached soft tissue. No sections are submitted. The specimen is for gross examination only.Gross examination performed at [place], [place] [address]JXM/JEFFERY 04/23/23 11:33 AM Performed By: #### S ####[facility]ORATORYCLIA [id number] [address] [place] [facility] MICROSCOPIC DESCRIPTION Gross examination only. [facility] Comment on above: Order Comment: Speci men Type: DEVICE SPECIMENOrdering Facility: [facility] Address: [address] [place], [place] [address] Performed By: #### S ####[facility] LABORATORYIA [id number] [address] [place] XR FLUOROSCOPYon 04-23-2023 XR FLUOROSCOPY Normal [facility] ANES PREOPon 04-20-2023 ANES PREOP [facility] 36on 04-06-2023 36 Noted Normal [facility] 36 Patient returned sabrina l to schedule. He is unable to come to office this week or next week, but states he will be able to schedule for 04/19/2023. Patient reports no pain/redness/drainage at site, though swelling bubble is still present and the site is no longer bothering him. OV: 04/19 with Stormy Mcdonnell PA-C Normal [facility] [address] [facility] to speak with dialysis center regarding patient's complaints. Per Nurse [employer] Blower Mary, there appears to be a small bubbled up 2-3cm area directly on top of fistula. She stated that patient cannulated effectively and there were no other issues. Dialysis center did not order testing as they did not feel it was urgent or necessary. Attempted to call patient to schedule OV for further assessment-no answer. Left voicemail requesting patient contact [facility] to schedule. [facility] 36 Attempted to contact patient 04/05/2023, phone call disconnect. Will attempt today 04/06/2023. [facility] 36on 04-04-2023 36 It sounds like it wa s infiltrated---but these calls generally come from the dialysis center Probably best to call them and see what is really going on 1st [facility] 36 Patient called with c/o swelling and bruising at fistula site. He went to dialysis Sunday and cannulated without issues. The swelling began after Sunday's dialysis session. No signs of bleeding, no numbness, no tingling. Has dialysis T,Th,Sa @0600. Testing or OV needed to assess? Last OV: 01/02/2022- follow up for swelling around fistula Surgery: AVF 02/25/2021 [facility] Basic metabolic 2000 panelon 01-04-2023 Anion gap [Moles/Vol] 7 mmol/L Normal 5-16 [facility] Comment on above: Order Comment: Kelsi huff Type: BLOOD SPECIMENOrdering Facility: [facility] Address: [address] [phone] Performed By: #### 2 4321-2 ####[facility]ORATORYCLIA [id number] [place] [address] [place] Calcium [Mass/Vol] 8.7 mg/dL Normal 8.5-10.5 [facility] Comment on above: Order Comment: Kelsi huff Type: BLOOD SPECIMENOrdering Facility: [facility] Address: [address] [place] [address] Performed By: #### 2 4321-2 ####[facility]ORATORYCLIA [id number] [place] [address] [place] Chloride [Moles/Vol] 96 mmol/L Low 98-107 [facility] Comment on above: Order Comment: Speci men Type: BLOOD SPECIMENOrdering Facility: [facility] Address: [address] [place] [address] Performed By: #### 2 4321-2 ####[facility]ATORYCLIA [id number] [place] [address] [place] CO2 [Moles/Vol] 31 mmol/L Normal 21-32 [facility] Comment on above: Order Comment: Speci men Type: BLOOD SPECIMENOrdering Facility: [facility] Address: [address] [place] [address] Performed By: #### 2 4321-2 ####[facility]ORATORYCLIA [id number] [place] [address] [place] Creatinine [Mass/Vol] 5.50 mg/dL High 0.50-1.40 [facility] Comment on above: Order Comment: Speci men Type: BLOOD SPECIMENOrdering Facility: [facility] Address: [address] [place] [address] Result Comment: Macrina ents receiving either N-Acetylcysteine (NAC) or Metamizole prior to venipuncture, may have falsely depressed results. Performed By: #### 2 4321-2 ####[facility]ATORYCLIA [id number] [place] [address] [place] ESTIMATED GLOMERULAR FILTRATION RATE 11 mL/min/1.73m??? Low >=60 [facility] Comment on above: Order Comment: Speci men Type: BLOOD SPECIMENOrdering Facility: [facility] Address: [address] [place] [address] Result Comment: Caryl mated Glomerular Filtration Rate [...] actual GFR. Performed By: #### 2 4321-2 ####[facility]ATORYCLIA [id number] [place] [address] [place] Glucose [Mass/Vol] 103 mg/dL High 70-100 [facility] Comment on above: Order Comment: Speci men Type: BLOOD SPECIMENOrdering Facility: [facility] Address: [address] [place] [address] Result Comment: The [place] [employer] (ADA) provides guidance for cutoff [...] Standards of Medical Care in Diabetes 2016, [place] [employer]. Diabetes Care. 2016.39(Suppl 1).Results may be falsely elevated after the administration of Sulfapyridine.Results may be falsely depressed after the administration of Sulfasalazine. Performed By: #### 2 4321-2 ####[facility]ATORYCLIA [id number] [place] [address] [place] Potassium [Moles/Vol] 4.9 mmol/L Normal 3.5-5.1 [facility] Comment on above: Order Comment: Speci men Type: BLOOD SPECIMENOrdering Facility: [facility] Address: [address] [address] Performed By: #### 2 4321-2 ####[facility]ATORYCLIA [id number] [place] [address] [place] Sodium [Moles/Vol] 134 mmol/L Low 136-145 [facility] Comment on above: Order Comment: Speci men Type: BLOOD SPECIMENOrdering Facility: [facility] Address: [address] [address] Performed By: #### 2 4321-2 ####[facility]ATORYCLIA [id number] [place] [address] [place] Urea nitrogen [Mass/Vol] 49 mg/dL High 03-21 [facility] Comment on above: Order Comment: Speci men Type: BLOOD SPECIMENOrdering Facility: [facility] Address: [address] [address] Performed By: #### 2 4321-2 ####[facility]ATORYCLIA [id number] [place] [address] [place] CASE MANAGEMon 01-04-2023 CASE MANAGEM Normal [facility] CASE MANAGEM Normal [facility] CBC W Auto Differential pane l (Bld)on 01-04-2023 Basophils (Bld) [#/Vol] 0.03 10*3/uL Normal <0.11 [facility] Comment on above: Order Comment: Speci men Type: BLOOD SPECIMENOrdering Facility: [facility] Address: [address] [place] [address] Performed By: #### 5 7021-8 ####[facility]ATORYCLIA [id number] [place] [address] [place] Basophils/100 WBC (Bld) 0.3 % Normal [facility] Comment on above: Order Comment: Speci men Type: BLOOD SPECIMENOrdering Facility: [facility] Address: [address] [place] [address] Performed By: #### 5 7021-8 ####[facility]ATORYCLIA [id number] [place] [address] [place] Differential cell count method Nom (Bld) Auto Normal [facility] Comment on above: Order Comment: Speci men Type: BLOOD SPECIMENOrdering Facility: [facility] Address: [address] [place] [address] Performed By: #### 5 7021-8 ####[facility]ATORYCLIA [id number] [place] [address] [place] Eosinophils (Bld) [#/Vol] 0.24 10*3/uL Normal <0.46 [facility] Comment on above: Order Comment: Speci men Type: BLOOD SPECIMENOrdering Facility: [facility] Address: [address] [address] Performed By: #### 5 7021-8 ####[facility]ATORYCLIA [id number] [place] [address] [place] Eosinophils/100 WBC (Bld) 2.4 % Normal [facility] Comment on above: Order Comment: Speci men Type: BLOOD SPECIMENOrdering Facility: [facility] Address: [address] [address] Performed By: #### 5 7021-8 ####[facility]ATORYCLIA [id number] [address] [place] Erythrocyte distribution width (RBC) [Ratio] 14.1 % Normal 11.5-15.0 [facility] Comment on above: Order Comment: Speci men Type: BLOOD SPECIMENOrdering Facility: [facility] Address: [address] [address] Performed By: #### 5 7021-8 ####[facility]ATORYCLIA [id number] [address] [place] Hematocrit (Bld) [Volume fraction] 22.8 % Low 39.0-51.0 [facility] Comment on above: Order Comment: Speci men Type: BLOOD SPECIMENOrdering Facility: [facility] Address: [address] [address] Performed By: #### 5 7021-8 ####[facility]ATORYCLIA [id number] [place] [address] [place] Hemoglobin (Bld) [Mass/Vol] 7.3 g/dL Low 13.0-17.0 [facility] Comment on above: Order Comment: Speci men Type: BLOOD SPECIMENOrdering Facility: [facility] Address: [address] [address] Performed By: #### 5 7021-8 ####[facility]ATORYCLIA [id number] [place] [address] [place] Immature granulocytes (Bld) [#/Vol] 0.03 10*3/uL Normal <0.10 [facility] Comment on above: Order Comment: Speci men Type: BLOOD SPECIMENOrdering Facility: [facility] Address: [address] [place] [address] Performed By: #### 5 7021-8 ####[facility]ATORYCLIA [id number] [place] [address] [place] Immature granulocytes/100 WBC (Bld) 0.3 % Normal [facility] Comment on above: Order Comment: Speci men Type: BLOOD SPECIMENOrdering Facility: [facility] Address: [address] [place] [address] Performed By: #### 5 7021-8 ####[facility]ATORYCLIA [id number] [place] [address] [place] Lymphocytes (Bld) [#/Vol] 1.14 10*3/uL Normal 1.00-4.00 [facility] Comment on above: Order Comment: Speci men Type: BLOOD SPECIMENOrdering Facility: [facility] Address: [address] [place] [address] Performed By: #### 5 7021-8 ####[facility]ATORYCLIA [id number] [place] [address] [place] Lymphocytes/100 WBC (Bld) 11.4 % Normal [facility] Comment on above: Order Comment: Speci men Type: BLOOD SPECIMENOrdering Facility: [facility] Address: [address] [place] [address] Performed By: #### 5 7021-8 ####[facility]ORATORYCLIA [id number] [place] [address] [place] MCH (RBC) [Entitic mass] 30.9 pg Normal 26.0-34.0 [facility] Comment on above: Order Comment: Speci men Type: BLOOD SPECIMENOrdering Facility: [facility] Address: [address] [address] Performed By: #### 5 7021-8 ####[facility]ATORYCLIA [id number] [place] [address] [place] MCHC (RBC) [Mass/Vol] 32.0 g/dL Normal 30.5-36.0 [facility] Comment on above: Order Comment: Speci men Type: BLOOD SPECIMENOrdering Facility: [facility] Address: [address] [address] Performed By: #### 5 7021-8 ####[facility]ORATORYCLIA [id number] [place] [address] [place] MCV (RBC) [Entitic vol] 96.6 fL Normal 80.0-100.0 [facility] Comment on above: Order Comment: Speci men Type: BLOOD SPECIMENOrdering Facility: [facility] Address: [address] [address] Performed By: #### 5 7021-8 ####[facility]ATORYCLIA [id number] [place] [address] [place] Monocytes (Bld) [#/Vol] 1.19 10*3/uL High <0.87 [facility] Comment on above: Order Comment: Speci men Type: BLOOD SPECIMENOrdering Facility: [facility] Address: [address] [address] Performed By: #### 5 7021-8 ####[facility]ATORYCLIA [id number] [address] [place] Monocytes/100 WBC (Bld) 11.9 % Normal [facility] Comment on above: Order Comment: Speci men Type: BLOOD SPECIMENOrdering Facility: [facility] Address: [address] [place] [address] Performed By: #### 5 7021-8 ####[facility]ATORYCLIA [id number] [place] [address] [place] [facility] [place] Neutrophils (Bld) [#/Vol] 7.37 10*3/uL Normal 1.45-7.50 [facility] Comment on above: Order Comment: Speci men Type: BLOOD SPECIMENOrdering Facility: [facility] Address: [address] [address] Performed By: #### 5 7021-8 ####[facility]ATORYCLIA [id number] [place] [address] [place] Neutrophils/100 WBC (Bld) 73.7 % Normal [facility] Comment on above: Order Comment: Speci men Type: BLOOD SPECIMENOrdering Facility: [facility] Address: [address] [address] Performed By: #### 5 7021-8 ####[facility]ATORYCLIA [id number] [place] [address] [place] Nucleated RBC (Bld) [#/Vol] 10*3/uL Normal <0.01 [facility] Comment on above: Order Comment: Speci men Type: BLOOD SPECIMENOrdering Facility: [facility] Address: [address] [address] Performed By: #### 5 7021-8 ####[facility]ATORYCLIA [id number] [place] [address] [place] Nucleated RBC/100 WBC (Bld) [Ratio] 0.0 /100 WBC Normal [facility] Comment on above: Order Comment: Speci men Type: BLOOD SPECIMENOrdering Facility: [facility] Address: [address] [address] Performed By: #### 5 7021-8 ####[facility]ATORYCLIA [id number] [place] [address] [place] Platelet mean volume (Bld) [Entitic vol] 9.7 fL Normal 9.0-12.7 [facility] Comment on above: Order Comment: Speci men Type: BLOOD SPECIMENOrdering Facility: [facility] Address: [address] [address] Performed By: #### 5 7021-8 ####[facility]ATORYCLIA [id number] [place] [address] [place] [facility] [place] Platelets (Bld) [#/Vol] 148 10*3/uL Low 150-400 [facility] Comment on above: Order Comment: Speci men Type: BLOOD SPECIMENOrdering Facility: [facility] Address: [address] [place] [address] Performed By: #### 5 7021-8 ####[facility]ATORYCLIA [id number] [place] [address] [place] RBC (Bld) [#/Vol] 2.36 10*6/uL Low 4.20-6.00 [facility] Comment on above: Order Comment: Speci men Type: BLOOD SPECIMENOrdering Facility: [facility] Address: [address] [place] [address] Performed By: #### 5 7021-8 ####[facility]ATORYCLIA [id number] [address] [place] WBC (Bld) [#/Vol] 10.00 10*3/uL Normal 3.70-11.00 [facility] Comment on above: Order Comment: Speci men Type: BLOOD SPECIMENOrdering Facility: [facility] Address: [address] [place] [address] Performed By: #### 5 7021-8 ####[facility]ATORYCLIA [id number] [address] [place] CNDSon 01-04-2023 CNDS [facility] CONSULT PROGon 01-04-2023 CONSULT PROG [facility] NURSING PROGon 01-04-2023 NURSING PROG [facility] THERAPY NTon 01-04-2023 THERAPY NT [facility] Basic metabolic 2000 panelon 01-03-2023 Anion gap [Moles/Vol] 6 mmol/L Normal 5-16 [facility] Comment on above: Order Comment: Speci men Type: BLOOD SPECIMENOrdering Facility: [facility] Address: [address] [place] [address] Performed By: #### 2 432-2, ####[facility]ATORYCLIA [id number] [place] [address] [place] Calcium [Mass/Vol] 8.5 mg/dL Normal 8.5-10.5 [facility] Comment on above: Order Comment: Speci men Type: BLOOD SPECIMENOrdering Facility: [facility] Address: [address] [place] [address] Performed By: #### 2 4320-2, ####[facility]ATORYCLIA [id number] [place] [address] [place] Chloride [Moles/Vol] 99 mmol/L Normal 98-107 [facility] Comment on above: Order Comment: Speci men Type: BLOOD SPECIMENOrdering Facility: [facility] Address: [address] [place] [address] Performed By: #### 2 4320-09, ####[facility]ATORYCLIA [id number] [place] [address] [place] CO2 [Moles/Vol] 32 mmol/L Normal 21-32 [facility] Comment on above: Order Comment: Speci men Type: BLOOD SPECIMENOrdering Facility: [facility] Address: [address] [place] [address] Performed By: #### 2 2, ####[facility]ATORYCLIA [id number] [place] [address] [place] Creatinine [Mass/Vol] 4.11 mg/dL High 0.50-1.40 [facility] Comment on above: Order Comment: Speci men Type: BLOOD SPECIMENOrdering Facility: [facility] Address: [address] [place] [address] Result Comment: Macrina ents receiving either N-Acetylcysteine (NAC) or Metamizole prior to venipuncture, may have falsely depressed results. Performed By: #### 2 4320-2, ####[facility]ATORYCLIA [id number] [place] [address] [place] ESTIMATED GLOMERULAR FILTRATION RATE 15 mL/min/1.73m??? Low >=60 [facility] Comment on above: Order Comment: Kelsi huff Type: BLOOD SPECIMENOrdering Facility: [facility] Address: [address] [place] [address] Result Comment: Caryl mated Glomerular Filtration Rate [...] actual GFR. Performed By: #### 2 4321-2, 59408-3 ####[facility]ATORYCLIA [id number] [address] [place] Glucose [Mass/Vol] 86 mg/dL Normal 70-100 [facility] Comment on above: Order Comment: Kelsi huff Type: BLOOD SPECIMENOrdering Facility: [facility] Address: [address] [place] [address] Result Comment: The [place] [employer] (ADA) provides guidance for cutoff [...] Standards of Medical Care in Diabetes 2016, [place] [employer]. Diabetes Care. 2016.39(Suppl 1).Results may be falsely elevated after the administration of Sulfapyridine.Results may be falsely depressed after the administration of Sulfasalazine. Performed By: #### 2 4321-2, 88295-1 ####[facility]ATORYCLIA [id number] [place] [address] [place] Potassium [Moles/Vol] 4.4 mmol/L Normal 3.5-5.1 [facility] Comment on above: Order Comment: Speci men Type: BLOOD SPECIMENOrdering Facility: [facility] Address: [address] [address] Performed By: #### 2 4321-2, ####[facility]ORATORYCLIA [id number] [address] [id number] [place] Sodium [Moles/Vol] 137 mmol/L Normal 136-145 [facility] Comment on above: Order Comment: Speci men Type: BLOOD SPECIMENOrdering Facility: [facility] Address: [address] [address] Performed By: #### 2 4321-2, ####[facility]ATORYCLIA [id number] [place] [address] [place] Urea nitrogen [Mass/Vol] 33 mg/dL High 7-26 [facility] Comment on above: Order Comment: Speci men Type: BLOOD SPECIMENOrdering Facility: [facility] Address: [address] [address] Performed By: #### 2 4321-2, ####[facility]ATORYCLIA [id number] [address] [place] CASE MANAGEMon 01-03-2023 CASE MANAGEM Normal [facility] CBC panel Auto (Bld)on 01-03 Erythrocyte distribution width (RBC) [Ratio] 14.1 % Normal 11.5-15.0 [facility] Comment on above: Order Comment: Speci men Type: BLOOD SPECIMENOrdering Facility: [facility] Address: [address] [address] Performed By: #### 5 8410-2 ####[facility]ATORYCLIA [id number] [place] [address] [place] Hematocrit (Bld) [Volume fraction] 25.4 % Low 39.0-51.0 [facility] Comment on above: Order Comment: Speci men Type: BLOOD SPECIMENOrdering Facility: [facility] Address: [address] [address] Performed By: #### 5 8410-2 ####[facility]ATORYCLIA [id number] [address] STATES OF [facility] Hemoglobin (Bld) [Mass/Vol] 8.2 g/dL Low 13.0-17.0 [facility] Comment on above: Order Comment: Speci men Type: BLOOD SPECIMENOrdering Facility: [facility] Address: [address] [address] Performed By: #### 5 8410-2 ####[facility]ATORYCLIA [id number] [address] [place] MCH (RBC) [Entitic mass] 31.1 pg Normal 26.0-34.0 [facility] Comment on above: Order Comment: Speci men Type: BLOOD SPECIMENOrdering Facility: [facility] Address: [address] [address] Performed By: #### 5 8410-2 ####[facility]ATORYCLIA [id number] [address] [place] MCHC (RBC) [Mass/Vol] 32.3 g/dL Normal 30.5-36.0 [facility] Comment on above: Order Comment: Speci men Type: BLOOD SPECIMENOrdering Facility: [facility] Address: [address] [address] Performed By: #### 5 8410-2 ####[facility]ATORYCLIA [id number] [address] [place] MCV (RBC) [Entitic vol] 96.2 fL Normal 80.0-100.0 [facility] Comment on above: Order Comment: Speci men Type: BLOOD SPECIMENOrdering Facility: [facility] Address: [address] [address] Performed By: #### 5 8410-2 ####[facility]ATORYCLIA [id number] [place] [address] [place] Nucleated RBC (Bld) [#/Vol] 10*3/uL Normal <0.01 [facility] Comment on above: Order Comment: Speci men Type: BLOOD SPECIMENOrdering Facility: [facility] Address: [address] [place] [address] Performed By: #### 5 8410-2 ####[facility]ATORYCLIA [id number] [place] [address] [place] Platelet mean volume (Bld) [Entitic vol] 9.6 fL Normal 9.0-12.7 [facility] Comment on above: Order Comment: Speci men Type: BLOOD SPECIMENOrdering Facility: [facility] Address: [address] [place] [address] Performed By: #### 5 8410-2 ####[facility]ATORYCLIA [id number] [place] [address] [place] Platelets (Bld) [#/Vol] 142 10*3/uL Low 150-400 [facility] Comment on above: Order Comment: Speci men Type: BLOOD SPECIMENOrdering Facility: [facility] Address: [address] [place] [address] Performed By: #### 5 8410-2 ####[facility]ATORYCLIA [id number] [place] [address] [place] RBC (Bld) [#/Vol] 2.64 10*6/uL Low 4.20-6.00 [facility] Comment on above: Order Comment: Speci men Type: BLOOD SPECIMENOrdering Facility: [facility] Address: [address] [place] [address] Performed By: #### 5 8410-2 ####[facility]ORATORYCLIA [id number] [place] [address] [place] WBC (Bld) [#/Vol] 9.25 10*3/uL Normal 3.70-11.00 [facility] Comment on above: Order Comment: Speci men Type: BLOOD SPECIMENOrdering Facility: [facility] Address: [address] [place] [address] Performed By: #### 5 8410-2 ####[facility]ORATORYCLIA [id number] [place] [address] [place] CONSULTon 01-03-2023 CONSULT Normal [facility] CONSULT PROGon 01-03-2023 CONSULT PROG Normal [facility] ECG COMPLETEon 01-03-2023 ECG COMPLETE Normal [facility] HIGH SENSITIVITY TROPONIN Io n 01-03-2023 Tropinin I.cardiac panel High sensitivity method 42.5 pg/mL Normal 0.0-54.0 [facility] Comment on above: Order Comment: Speci men Type: BLOOD SPECIMENOrdering Facility: [facility] Address: [address] [place] [address] Result Comment: This assay uses different antibodies than our current assay, and assays, even by the same entry level sales consultant may recognize different regions of the antibody and cannot be used interchangeably. Expect results of this assay to run higher than the previous assay. Performed By: #### H STROP ####[facility] LABORATORYIA [id number] [place] [address] [place] Magnesium SerPl-mCncon 01-03 Magnesium [Mass/Vol] 1.7 mg/dL Normal 1.6-2.6 [facility] Comment on above: Order Comment: Speci men Type: BLOOD SPECIMENOrdering Facility: [facility] Address: [address] [place] [address] Performed By: #### 2 4321-2, 78132-0 ####[facility]PITALIA [id number] [place] [address] [place] THERAPY NTon 01-03-2023 THERAPY NT Normal [facility] THERAPY NT [facility] Albumin SerPl-mCncon 023 Albumin [Mass/Vol] 2.7 g/dL Low 3.2-5.0 [facility] Comment on above: Order Comment: Speci men Type: BLOOD SPECIMENOrdering Facility: [facility] Address: [place] [address] Performed By: #### 1 751-7, 2777-1, 51758-1, 11198-5, 5-3, 14226-7 ####[facility]ORATORYCLIA [id number] [place] [id number] [place] Basic metabolic 2000 panelon 01-02-2023 Anion gap [Moles/Vol] 7 mmol/L Normal 5-16 [facility] Comment on above: Order Comment: Speci men Type: BLOOD SPECIMENOrdering Facility: [facility] Address: [address] Performed By: #### 1 751-7, 2777-1, 15857-1, 70367-5, 5194-3, 05543-3 ####[facility]ORATORYCLIA [id number] [place] [id number] [place] Calcium [Mass/Vol] 8.7 mg/dL Normal 8.5-10.5 [facility] Comment on above: Order Comment: Speci men Type: BLOOD SPECIMENOrdering Facility: [facility] Address: [address] [place] [address] Performed By: #### 1 751-7, 2777-1, 35978-9, 11827-9, 5194-3, 22330-6 ####[facility]ORATORYCLIA [id number] [place] [id number] [place] Chloride [Moles/Vol] 101 mmol/L Normal 98-107 [facility] [facility] Comment on above: Order Comment: Speci men Type: BLOOD SPECIMENOrdering Facility: [facility] Address: [address] KUMARJade [place] [phone] Performed By: #### 1 751-7, 2777-1, 19299-4, 25432-1, 5194-3, 37365-7 ####[facility] LABORATORYCLIA [id number] [place] [id number] [place] CO2 [Moles/Vol] 28 mmol/L Normal 21-32 [facility] Comment on above: Order Comment: Specmarcellus huff Type: BLOOD SPECIMENOrdering Facility: [facility] Address: [address] [place] [address] Performed By: #### 1 751-7, 2777-1, 98001-7, 58745-0, 5195-3, 88426-7 ####[facility] LABORATORYCLIA [id number] [place] [address] [place] Creatinine [Mass/Vol] 5.79 mg/dL High 0.50-1.40 [facility] Comment on above: Order Comment: Speci men Type: BLOOD SPECIMENOrdering Facility: [facility] Address: [address] [place] [address] Result Comment: Macrina ents receiving either N-Acetylcysteine (NAC) or Metamizole prior to venipuncture, may have falsely depressed results. Performed By: #### 1 751-7, 2777-1, 89042-6, 86957-3, 5194-3, 90344-4 ####[facility]ORATORYCLIA [id number] [place] [address] [place] ESTIMATED GLOMERULAR FILTRATION RATE 10 mL/min/1.73m??? Low >=60 [facility] Comment on above: Order Comment: Kelsi huff Type: BLOOD SPECIMENOrdering Facility: [facility] Address: [address] [place] [address] Result Comment: Caryl mated Glomerular Filtration Rate [...] GFR. Performed By: #### 1 751-7, 2777-1, 13949-4, 98496-7, 5-3, 68007-6 ####[facility] LABORATORYCLIA [id number] [place] [address] [place] Glucose [Mass/Vol] 111 mg/dL High 70-100 [facility] Comment on above: Order Comment: Kelsi daria Type: BLOOD SPECIMENOrdering Facility: [facility] Address: [address]ARJ[address] [place] [phone] Result Comment: The [place] [employer] (ADA) provides guidance for cutoff [...] Standards of Medical Care in Diabetes 2016, [place] [employer]. Diabetes Care. 2016.39(Suppl 1).Results may be falsely elevated after the administration of Sulfapyridine.Results may be falsely depressed after the administration of Sulfasalazine. Performed By: #### 1 751-7, 2777-1, 51493-8, 17255-0, 5195-3, 59954-1 ####[facility] LABORATORYCLIA [id number] [place] [address] [place] Potassium [Moles/Vol] 5.7 mmol/L High 3.5-5.1 [facility] Comment on above: Order Comment: Kelsi huff Type: BLOOD SPECIMENOrdering Facility: [facility] Address: [address] [place] [phone] Performed By: #### 1 751-7, 2777-1, 60468-0, 59456-4, 5195-3, 73047-6 ####[facility] LABORATORYCLIA [id number] [place] [address] [place] Sodium [Moles/Vol] 136 mmol/L Normal 136-145 [facility] Comment on above: Order Comment: Kelsi huff Type: BLOOD SPECIMENOrdering Facility: [facility] Address: [address] [place] [phone] Performed By: #### 1 751-7, 2777-1, 01240-5, 10228-2, 5195-3, 31459-5 ####[facility] LABORATORYCLIA [id number] [place] [address] [place] Urea nitrogen [Mass/Vol] 59 mg/dL High 03-21 [facility] Comment on above: Order Comment: Speci men Type: BLOOD SPECIMENOrdering Facility: [facility] Address: [address] [place] [address] Performed By: #### 1 751-7, 2777-1, 35407-1, 26690-1, 5195-3, 47645-8 ####[facility] LABORATORYCLIA [id number] [address] OF [facility] CASE MANAGEMon 01-02-2023 CASE MANAGEM Normal [facility] CASE MGT INIT ASSESon 2022 CASE MGT INIT [facility] CBC panel Auto (Bld)on 01-02 Erythrocyte distribution width (RBC) [Ratio] 14.0 % Normal 11.5-15.0 [facility] Comment on above: Order Comment: Speci men Type: BLOOD SPECIMENOrdering Facility: [facility] Address: [address] [place] [address] Performed By: #### 5 8410-2 ####[facility] LABORATORYCLIA [id number] [address] [place] Hematocrit (Bld) [Volume fraction] 26.2 % Low 39.0-51.0 [facility] Comment on above: Order Comment: Speci men Type: BLOOD SPECIMENOrdering Facility: [facility] Address: [address] [place] [address] Performed By: #### 5 8410-2 ####[facility] LABORATORYCLIA [id number] [place] [address] [place] Hemoglobin (Bld) [Mass/Vol] 8.5 g/dL Low 13.0-17.0 [facility] Comment on above: Order Comment: Speci men Type: BLOOD SPECIMENOrdering Facility: [facility] Address: [address] [place] [address] Performed By: #### 5 8410-2 ####[facility]ORATORYCLIA [id number] [address] MCH (RBC) [Entitic mass] 31.0 pg Normal 26.0-34.0 [facility] Comment on above: Order Comment: Speci men Type: BLOOD SPECIMENOrdering Facility: [facility] Address: [address] [place] [address] Performed By: #### 5 8410-2 ####[facility] LABORATORYCLIA [id number] [address] MCHC (RBC) [Mass/Vol] 32.4 g/dL Normal 30.5-36.0 [facility] Comment on above: Order Comment: Speci men Type: BLOOD SPECIMENOrdering Facility: [facility] Address: [address] [place] [address] Performed By: #### 5 8410-2 ####[facility]ORATORYCLIA [id number] [address] MCV (RBC) [Entitic vol] 95.6 fL Normal 80.0-100.0 [facility] Comment on above: Order Comment: Speci men Type: BLOOD SPECIMENOrdering Facility: [facility] Address: [address] [place] [address] Performed By: #### 5 8410-2 ####[facility]ORATORYCLIA [id number] [address] Nucleated RBC (Bld) [#/Vol] 10*3/uL Normal <0.01 [facility] Comment on above: Order Comment: Speci men Type: BLOOD SPECIMENOrdering Facility: [facility] Address: [address] [place] [address] Performed By: #### 5 8410-2 ####[facility]ORATORYCLIA [id number] [address] Platelet mean volume (Bld) [Entitic vol] 9.3 fL Normal 9.0-12.7 [facility] Comment on above: Order Comment: Speci men Type: BLOOD SPECIMENOrdering Facility: [facility] Address: [address] [place] [address] Performed By: #### 5 8410-2 ####[facility] LABORATORYCLIA [id number] [place] [address] [place] Platelets (Bld) [#/Vol] 143 10*3/uL Low 150-400 [facility] Comment on above: Order Comment: Speci men Type: BLOOD SPECIMENOrdering Facility: [facility] Address: [address] [place] [address] Performed By: #### 5 8410-2 ####[facility] DEPARTMENTCLIA [id number] [address] [place] RBC (Bld) [#/Vol] 2.74 10*6/uL Low 4.20-6.00 [facility] Comment on above: Order Comment: Speci men Type: BLOOD SPECIMENOrdering Facility: [facility] Address: [address] [place] [address] Performed By: #### 5 8410-2 ####[facility] LABORATORYIA [id number] [address] [place] WBC (Bld) [#/Vol] 7.00 10*3/uL Normal 3.70-11.00 [facility] Comment on above: Order Comment: Speci men Type: BLOOD SPECIMENOrdering Facility: [facility] Address: [address] [place] [address] Performed By: #### 5 8410-2 ####[facility] LABORATORYCLIA [id number] [address] CONSULT PROGon 01-02-2023 CONSULT PROG Normal [facility] HBV surface Ab Ql (S)on HBV surface Ab Qn (S) 1100.50 mIU/mL High 0.00-9.99 [facility] Comment on above: Order Comment: Kelsi [facility] Type: BLOOD SPECIMENOrdering Facility: [facility] Address: [address] [place] [address] Result Comment: STAT US OF IMMUNITYProtective Immunity: greater than or equal to 10 mIU/mL (Traceable to WHO International Reference Preparation)No Protective Immunity: less than 10 mIU/mLNote: The magnitude of the measured result above the cutoff is not indicative of the total amount of antibody present.WAIT FOR DILUTION IF > Performed By: #### 1 751-7, 2777-1, 85503-2, 43560-2, 5-3, 57779-7 ####[facility]ORATORYCLIA [id number] [place] [address] [place] HBV surface Ab Ser Qlon 05-0 HBV surface Ab Ql (S) Positive Normal Positive [facility] Comment on above: Order Comment: Kelsi [facility] Type: BLOOD SPECIMENOrdering Facility: [facility] Address: [address] [place] [address] Result Comment: Thes e results are consistent with previous exposure and/or immunity to the hepatitis B virus antigen. Performed By: #### 1 751-7, 2777-1, 16936-8, 97595-6, 5-3, 44645-9 ####[facility]ORATORYCLIA [id number] [place] [address] [place] HBV surface Ag Ser Qlon 05-0 HBV surface Ag Ql (S) Non-Reactive Normal Equivo sabrina, Nonreactive [facility] Comment on above: Order Comment: Kelsi [facility] Type: BLOOD SPECIMENOrdering Facility: [facility] Address: [address] [place] [address] Result Comment: Resu lts were obtained with the [employer] IM IgM assay. Values obtained with different manufactures' assay methods may not be used interchangeably. Performed By: #### 1 751-7, 2777-1, 58297-3, 28452-8, 5-3, 59357-2 ####[facility]ORATORYCLIA [id number] [place] [address] [place] Iron and Iron binding capaci ty panelon 01-02-2023 Iron [Mass/Vol] 12 ug/dL Low 65-175 [facility] Comment on above: Order Comment: Speci men Type: BLOOD SPECIMENOrdering Facility: [facility] Address: [address] [place] [address] Result Comment: Macrina ents treated with metal-binding drugs (e.g.deferoxamine) may have depressed iron values, as chelated iron may not properly react in the Siemens iron assay. Performed By: #### 1 751-7, 2777-1, 44080-8, 69150-8, 5195-3, 18208-3 ####[facility] LABORATORYCLIA [id number] [address] [place] Iron binding capacity [Mass/Vol] 196 ug/dL Low 221-481 [facility] Comment on above: Order Comment: Speci men Type: BLOOD SPECIMENOrdering Facility: [facility] Address: [address] [place] [address] Performed By: #### 1 751-7, 2777-1, 82231-9, 66316-6, 5195-3, 33186-6 ####[facility]ORATORYCLIA [id number] [place] [address] [place] Iron/TIBC [Molar ratio] 6.1 % Low 22.0-44.0 [facility] Comment on above: Order Comment: Speci men Type: BLOOD SPECIMENOrdering Facility: [facility] Address: [address] [place] [address] Performed By: #### 1 751-7, 2777-1, 38538-0, 03305-9, 5195-3, 32225-6 ####[facility]ORATORYCLIA [id number] [place] [id number] [place] NURSING PROGon 01-02-2023 NURSING PROG Normal [facility] Phosphate SerPl-mCncon 01-02 Phosphate [Mass/Vol] 5.5 mg/dL High 2.5-4.9 [facility] Comment on above: Order Comment: Speci men Type: BLOOD SPECIMENOrdering Facility: [facility] Address: [facility] [facility] CL[facility]ICSJ[facility] [place] [address] Result Comment: Elev ated m-protein (paraprotein) levels in the serum may be exhibited in patients with monoclonal gammopathies, causing falsely elevated inorganic phosphorus results. Performed By: #### 1 751-7, 2777-1, 43180-8, 70885-5, 5195-3, 29156-7 ####[facility] LABORATORYCLIA [id number] [address] OF [facility] THERAPY NTon 01-02-2023 THERAPY NT [facility] THERAPY NT [facility] XR CHEST 1V FRONTALon 2022 XR CHEST 1V FRONTAL [facility] ANES POSTPROC EVALon 023 ANES POSTPROC EVAL [facility] ANES PRE-OPon 01-01-2023 ANES PRE-OP [facility] ANTIBODY ID PATIENTon 2022 ANTIBODY IDENTIFIED Anti-C [facility] Comment on above: Order Comment: Speci men Type: BLOOD SPECIMENOrdering Facility: [facility] Address: [place] [place] [address] Result Comment: Anti -DAnti-E Performed By: #### T SCR, %[place], DAGT ####[facility] BLOOD BANKCLIA [id number] [place] [address] [place] [facility] [place] Bacteria Spec Anaerobe Culto n 01-01-2023 Bacteria identified Anaer cx Nom (Unsp spec) CULTURE, ANAEROBE: Anaerobe culture reviewed, negative at day 6. [facility] Comment on above: Performed By: #### 6 35-3 ####[facility] LABORATORYCLIA [id number] [address] Bacteria identified Anaer cx Nom (Unsp spec) CULTURE, ANAEROBE: Anaerobe culture reviewed, negative at day 3. [facility] Comment on above: Performed By: #### 6 35-3 ####[facility] LABORATORYCLIA [id number] [place] [address] [place] Bacteria identified Anaer cx Nom (Unsp spec) CULTURE, ANAEROBE: Anaerobe culture reviewed, negative at day 3. Normal [facility] Comment on above: Performed By: #### 6 35-3 ####[facility] LABORATORYCLIA [id number] [place] [id number] [place] Bacteria Tiss Culton 023 Bacteria identified Cx Nom (Tiss) CULTURE, TISSUE: No growth 5 days GRAM STAIN: Rare Polymorphonuclear leukocytes No organisms seen Normal [facility] Comment on above: Performed By: #### 4 3408-4 ####[facility] LABORATORYCLIA [id number] [place] [id number] [place] Bacteria Wnd Culton 01-02-20 23 Bacteria identified Cx Nom (Wound) CULTURE, WOUND: No growth 3 days GRAM STAIN: Few Polymorphonuclear leukocytes No organisms seen Normal [facility] Comment on above: Performed By: #### 6 462-6 ####[facility] LABORATORYCLIA [id number] [place] [id number] [place] Bacteria identified Cx Nom (Wound) CULTURE, WOUND: No growth 3 days GRAM STAIN: Few Polymorphonuclear leukocytes No organisms seen Normal [facility] Comment on above: Performed By: #### 6 462-6 ####[facility] LABORATORYCLIA [id number] [place] [id number] [place] Basic metabolic 2000 panelon 01-01-2023 Anion gap [Moles/Vol] 9 mmol/L Normal 5-16 [facility] Comment on above: Order Comment: Speci men Type: BLOOD SPECIMENOrdering Facility: [facility] Address: [address] [place] [address] [place] [address] Performed By: #### 2 4321-2 ####[facility] LABORATORYCLIA [id number] [place] [address] [place] Calcium [Mass/Vol] 8.7 mg/dL Normal 8.5-10.5 [facility] Comment on above: Order Comment: Speci men Type: BLOOD SPECIMENOrdering Facility: [facility] Address: [address] [place] [address] Performed By: #### 2 4321-2 ####[facility] LABORATORYCLIA [id number] [place] [address] [place] Chloride [Moles/Vol] 101 mmol/L Normal 98-107 [facility] Comment on above: Order Comment: Speci men Type: BLOOD SPECIMENOrdering Facility: [facility] Address: [address] [place] [address] Performed By: #### 2 4321-2 ####[facility] LABORATORYCLIA [id number] [place] [address] [place] CO2 [Moles/Vol] 28 mmol/L Normal 21-32 [facility] Comment on above: Order Comment: Speci men Type: BLOOD SPECIMENOrdering Facility: [facility] Address: [address] [place] [address] Performed By: #### 2 4321-2 ####[facility] LABORATORYCLIA [id number] [place] [address] [place] Creatinine [Mass/Vol] 5.19 mg/dL High 0.50-1.40 [facility] Comment on above: Order Comment: Speci men Type: BLOOD SPECIMENOrdering Facility: [facility] Address: [address] [place] [address] Result Comment: Macrina ents receiving either N-Acetylcysteine (NAC) or Metamizole prior to venipuncture, may have falsely depressed results. Performed By: #### 2 4321-2 ####[facility] LABORATORYCLIA [id number] [place] [address] [place] ESTIMATED GLOMERULAR FILTRATION RATE 12 mL/min/1.73m??? Low >=60 [facility] Comment on above: Order Comment: Speci men Type: BLOOD SPECIMENOrdering Facility: [facility] Address: [address] [place] [address] Result Comment: Caryl mated Glomerular Filtration Rate [...] actual GFR. Performed By: #### 2 4321-2 ####[facility] LABORATORYCLIA [id number] [place] [address] [place] Glucose [Mass/Vol] 113 mg/dL High 70-100 [facility] Comment on above: Order Comment: Kelsi huff Type: BLOOD SPECIMENOrdering Facility: [facility] Address: [address] [place] [address] Result Comment: The [place] [employer] (ADA) provides guidance for cutoff [...] Standards of Medical Care in Diabetes 2016, [place] [employer]. Diabetes Care. 2016.39(Suppl 1).Results may be falsely elevated after the administration of Sulfapyridine.Results may be falsely depressed after the administration of Sulfasalazine. Performed By: #### 2 4321-2 ####[facility] LABORATORYCLIA [id number] [place] [address] [place] Potassium [Moles/Vol] 5.1 mmol/L Normal 3.5-5.1 [facility] Comment on above: Order Comment: Kelsi huff Type: BLOOD SPECIMENOrdering Facility: [facility] Address: [address] [place] [address] Performed By: #### 2 4321-2 ####[facility] LABORATORYCLIA [id number] [place] [address] [place] Sodium [Moles/Vol] 138 mmol/L Normal 136-145 [facility] Comment on above: Order Comment: Speci men Type: BLOOD SPECIMENOrdering Facility: [facility] Address: [address] [place] [address] Performed By: #### 2 4321-2 ####[facility] LABORATORYCLIA [id number] [place] [address] [place] Urea nitrogen [Mass/Vol] 53 mg/dL High 7-26 [facility] Comment on above: Order Comment: Speci men Type: BLOOD SPECIMENOrdering Facility: [facility] Address: [address] [place] [address] Performed By: #### 2 4321-2 ####[facility] LABORATORYCLIA [id number] [place] [address] [place] Anion gap [Moles/Vol] 7 mmol/L Normal 5-16 [facility] Comment on above: Order Comment: Speci men Type: BLOOD SPECIMENOrdering Facility: [facility] Address: [address] [place] [address] Performed By: #### 2 4321-2 ####[facility] LABORATORYCLIA [id number] [place] [address] [place] Calcium [Mass/Vol] 9.1 mg/dL Normal 8.5-10.5 [facility] Comment on above: Order Comment: Speci men Type: BLOOD SPECIMENOrdering Facility: [facility] Address: [address] Performed By: #### 2 4321-2 ####[facility] LABORATORYCLIA [id number] [place] [address] [place] Chloride [Moles/Vol] 100 mmol/L Normal 98-107 [facility] Comment on above: Order Comment: Speci men Type: BLOOD SPECIMENOrdering Facility: [facility] Address: [address] [place] [address] Performed By: #### 2 4321-2 ####[facility] LABORATORYCLIA [id number] [place] [address] [place] CO2 [Moles/Vol] 30 mmol/L Normal 21-32 [facility] Comment on above: Order Comment: Speci men Type: BLOOD SPECIMENOrdering Facility: [facility] Address: [address] [place] [address] Performed By: #### 2 4321-2 ####[facility] LABORATORYCLIA [id number] [address] [place] Creatinine [Mass/Vol] 5.13 mg/dL High 0.50-1.40 [facility] Comment on above: Order Comment: Samanthai men Type: BLOOD SPECIMENOrdering Facility: [facility] Address: [address] [place] [address] Result Comment: Macrina ents receiving either N-Acetylcysteine (NAC) or Metamizole prior to venipuncture, may have falsely depressed results. Performed By: #### 2 4321-2 ####[facility] LABORATORYCLIA [id number] [address] OF [facility] ESTIMATED GLOMERULAR FILTRATION RATE 12 mL/min/1.73m??? Low >=60 [facility] Comment on above: Order Comment: Samanthai daria Type: BLOOD SPECIMENOrdering Facility: [facility] Address: [address] [place] [address] Result Comment: Caryl mated Glomerular Filtration Rate [...] actual GFR. Performed By: #### 2 4321-2 ####[facility] LABORATORYCLIA [id number] [address] [place] Glucose [Mass/Vol] 88 mg/dL Normal 70-100 [facility] Comment on above: Order Comment: Samanthai men Type: BLOOD SPECIMENOrdering Facility: [facility] Address: [address] [place] [address] Result Comment: The [place] [employer] (ADA) provides guidance for cutoff [...] Standards of Medical Care in Diabetes 2016, [place] [employer]. Diabetes Care. 2016.39(Suppl 1).Results may be falsely elevated after the administration of Sulfapyridine.Results may be falsely depressed after the administration of Sulfasalazine. Performed By: #### 2 4321-2 ####[facility] LABORATORYCLIA [id number] [place] [address] [place] Potassium [Moles/Vol] 5.7 mmol/L High 3.5-5.1 [facility] Comment on above: Order Comment: Speci men Type: BLOOD SPECIMENOrdering Facility: [facility] Address: [address] [place] [address] Performed By: #### 2 4321-2 ####[facility] LABORATORYCLIA [id number] [place] [address] [place] Sodium [Moles/Vol] 137 mmol/L Normal 136-145 [facility] Comment on above: Order Comment: Speci men Type: BLOOD SPECIMENOrdering Facility: [facility] Address: [address] [place] [address] Performed By: #### 2 4321-2 ####[facility] LABORATORYCLIA [id number] [place] [address] [place] Urea nitrogen [Mass/Vol] 53 mg/dL High 7-26 [facility] Comment on above: Order Comment: Speci men Type: BLOOD SPECIMENOrdering Facility: [facility] Address: [address] [place] [address] Performed By: #### 2 4321-2 ####[facility] LABORATORYCLIA [id number] [place] [address] [place] CBC W Auto Differential pane l (Bld)on 01-01-2023 Basophils (Bld) [#/Vol] 10*3/uL Normal <0.11 [facility] Comment on above: Order Comment: Speci men Type: BLOOD SPECIMENOrdering Facility: [facility] Address: [address] [address] Performed By: #### 5 7021-8 ####[facility] LABORATORYCLIA [id number] [address] [place] Basophils/100 WBC (Bld) 0.2 % Normal [facility] Comment on above: Order Comment: Speci men Type: BLOOD SPECIMENOrdering Facility: [facility] Address: [address] [address] Performed By: #### 5 7021-8 ####[facility] LABORATORYCLIA [id number] [place] [address] [place] Differential cell count method Nom (Bld) Auto Normal [facility] Comment on above: Order Comment: Speci men Type: BLOOD SPECIMENOrdering Facility: [facility] Address: [address] [address] Performed By: #### 5 7021-8 ####[facility] LABORATORYCLIA [id number] [place] [address] [place] Eosinophils (Bld) [#/Vol] 0.12 10*3/uL Normal <0.46 [facility] Comment on above: Order Comment: Speci men Type: BLOOD SPECIMENOrdering Facility: [facility] Address: [address] [address] Performed By: #### 5 7021-8 ####[facility] LABORATORYCLIA [id number] [place] [address] [place] Eosinophils/100 WBC (Bld) 1.9 % Normal [facility] Comment on above: Order Comment: Speci men Type: BLOOD SPECIMENOrdering Facility: [facility] Address: [address] [address] Performed By: #### 5 7021-8 ####[facility] LABORATORYCLIA [id number] [address] [place] Erythrocyte distribution width (RBC) [Ratio] 13.8 % Normal 11.5-15.0 [facility] Comment on above: Order Comment: Speci men Type: BLOOD SPECIMENOrdering Facility: [facility] Address: [address] [address] Performed By: #### 5 7021-8 ####[facility] LABORATORYCLIA [id number] [address] [place] Hematocrit (Bld) [Volume fraction] 31.5 % Low 39.0-51.0 [facility] Comment on above: Order Comment: Speci men Type: BLOOD SPECIMENOrdering Facility: [facility] Address: [address] [address] Performed By: #### 5 7021-8 ####[facility] LABORATORYCLIA [id number] [place] [address] [place] Hemoglobin (Bld) [Mass/Vol] 10.8 g/dL Low 13.0-17.0 [facility] Comment on above: Order Comment: Speci men Type: BLOOD SPECIMENOrdering Facility: [facility] Address: [address] [address] Performed By: #### 5 7021-8 ####[facility] LABORATORYCLIA [id number] [address] [place] Immature granulocytes (Bld) [#/Vol] 10*3/uL Normal <0.10 [facility] Comment on above: Order Comment: Speci men Type: BLOOD SPECIMENOrdering Facility: [facility] Address: [address] [address] Performed By: #### 5 7021-8 ####[facility] LABORATORYCLIA [id number] [address] [place] Immature granulocytes/100 WBC (Bld) 0.3 % Normal [facility] Comment on above: Order Comment: Speci men Type: BLOOD SPECIMENOrdering Facility: [facility] Address: [address] [place] [address] Performed By: #### 5 7021-8 ####[facility] LABORATORYCLIA [id number] [place] [address] [place] Lymphocytes (Bld) [#/Vol] 0.75 10*3/uL Low 1.00-4.00 [facility] Comment on above: Order Comment: Speci men Type: BLOOD SPECIMENOrdering Facility: [facility] Address: [address] [place] [address] Performed By: #### 5 7021-8 ####[facility] LABORATORYCLIA [id number] [address] STATES [facility] Lymphocytes/100 WBC (Bld) 12.0 % Normal [facility] Comment on above: Order Comment: Speci men Type: BLOOD SPECIMENOrdering Facility: [facility] Address: [address] [place] [address] Performed By: #### 5 7021-8 ####[facility] LABORATORYCLIA [id number] [place] [address] [place] MCH (RBC) [Entitic mass] 32.9 pg Normal 26.0-34.0 [facility] Comment on above: Order Comment: Speci men Type: BLOOD SPECIMENOrdering Facility: [facility] Address: [address] [place] [address] Performed By: #### 5 7021-8 ####[facility] LABORATORYCLIA [id number] [address] MCHC (RBC) [Mass/Vol] 34.3 g/dL Normal 30.5-36.0 [facility] Comment on above: Order Comment: Speci men Type: BLOOD SPECIMENOrdering Facility: [facility] Address: [address] [address] Performed By: #### 5 7021-8 ####[facility] LABORATORYCLIA [id number] [place] [address] [place] MCV (RBC) [Entitic vol] 96.0 fL Normal 80.0-100.0 [facility] Comment on above: Order Comment: Speci men Type: BLOOD SPECIMENOrdering Facility: [facility] Address: [address] [address] Performed By: #### 5 7021-8 ####[facility] LABORATORYCLIA [id number] [place] [address] [place] [facility] [place] Monocytes (Bld) [#/Vol] 0.65 10*3/uL Normal <0.87 [facility] Comment on above: Order Comment: Speci men Type: BLOOD SPECIMENOrdering Facility: [facility] Address: [address] [address] Performed By: #### 5 7021-8 ####[facility] LABORATORYCLIA [id number] [address] [place] Monocytes/100 WBC (Bld) 10.4 % Normal [facility] Comment on above: Order Comment: Speci men Type: BLOOD SPECIMENOrdering Facility: [facility] Address: [address] [place] [address] Performed By: #### 5 7021-8 ####[facility] LABORATORYCLIA [id number] [place] [address] [place] Neutrophils (Bld) [#/Vol] 4.70 10*3/uL Normal 1.45-7.50 [facility] Comment on above: Order Comment: Speci men Type: BLOOD SPECIMENOrdering Facility: [facility] Address: [address] [place] [address] Performed By: #### 5 7021-8 ####[facility] LABORATORYCLIA [id number] [place] [address] [place] Neutrophils/100 WBC (Bld) 75.2 % Normal [facility] Comment on above: Order Comment: Speci men Type: BLOOD SPECIMENOrdering Facility: [facility] Address: [address] Performed By: #### 5 7021-8 ####[facility] LABORATORYCLIA [id number] [place] [address] [place] Nucleated RBC (Bld) [#/Vol] 10*3/uL Normal <0.01 [facility] Comment on above: Order Comment: Speci men Type: BLOOD SPECIMENOrdering Facility: [facility] Address: [address] Performed By: #### 5 7021-8 ####[facility] LABORATORYCLIA [id number] [place] [address] [place] Nucleated RBC/100 WBC (Bld) [Ratio] 0.0 /100 WBC Normal [facility] Comment on above: Order Comment: Speci men Type: BLOOD SPECIMENOrdering Facility: [facility] Address: [address] Performed By: #### 5 7021-8 ####[facility] LABORATORYCLIA [id number] [place] [address] [place] Platelet mean volume (Bld) [Entitic vol] 9.7 fL Normal 9.0-12.7 [facility] Comment on above: Order Comment: Speci men Type: BLOOD SPECIMENOrdering Facility: [facility] Address: [address] Performed By: #### 5 7021-8 ####[facility] LABORATORYCLIA [id number] [place] [address] [place] Platelets (Bld) [#/Vol] 174 10*3/uL Normal 150-400 [facility] Comment on above: Order Comment: Speci men Type: BLOOD SPECIMENOrdering Facility: [facility] Address: [address] Performed By: #### 5 7021-8 ####[facility] LABORATORYCLIA [id number] [address] [place] RBC (Bld) [#/Vol] 3.28 10*6/uL Low 4.20-6.00 [facility] Comment on above: Order Comment: Speci men Type: BLOOD SPECIMENOrdering Facility: [facility] Address: [address] [place] [address] Performed By: #### 5 7021-8 ####[facility] LABORATORYCLIA [id number] [address] [place] WBC (Bld) [#/Vol] 6.25 10*3/uL Normal 3.70-11.00 [facility] Comment on above: Order Comment: Speci men Type: BLOOD SPECIMENOrdering Facility: [facility] Address: [address] [place] [address] Performed By: #### 5 7021-8 ####[facility] LABORATORYCLIA [id number] [address] CBC panel Auto (Bld)on 01-01 Erythrocyte distribution width (RBC) [Ratio] 14.0 % Normal 11.5-15.0 [facility] Comment on above: Order Comment: Speci men Type: BLOOD SPECIMENOrdering Facility: [facility] Address: [address] [place] [address] Performed By: #### 5 8410-2 ####[facility] LABORATORYCLIA [id number] [address] [place] Hematocrit (Bld) [Volume fraction] 26.8 % Low 39.0-51.0 [facility] Comment on above: Order Comment: Speci men Type: BLOOD SPECIMENOrdering Facility: [facility] Address: [address] [place] [address] Performed By: #### 5 8410-2 ####[facility] LABORATORYCLIA [id number] [address] [place] Hemoglobin (Bld) [Mass/Vol] 8.9 g/dL Low 13.0-17.0 [facility] Comment on above: Order Comment: Speci men Type: BLOOD SPECIMENOrdering Facility: [facility] Address: [address] [address] Performed By: #### 5 8410-2 ####[facility] LABORATORYCLIA [id number] [address] MCH (RBC) [Entitic mass] 31.7 pg Normal 26.0-34.0 [facility] Comment on above: Order Comment: Speci men Type: BLOOD SPECIMENOrdering Facility: [facility] Address: [address] [address] Performed By: #### 5 8410-2 ####[facility] LABORATORYCLIA [id number] [address] MCHC (RBC) [Mass/Vol] 33.2 g/dL Normal 30.5-36.0 [facility] Comment on above: Order Comment: Speci men Type: BLOOD SPECIMENOrdering Facility: [facility] Address: [address] [address] Performed By: #### 5 8410-2 ####[facility] LABORATORYCLIA [id number] [address] STATES [facility] MCV (RBC) [Entitic vol] 95.4 fL Normal 80.0-100.0 [facility] Comment on above: Order Comment: Speci men Type: BLOOD SPECIMENOrdering Facility: [facility] Address: [address] [address] Performed By: #### 5 8410-2 ####[facility] LABORATORYCLIA [id number] [address] [place] Nucleated RBC (Bld) [#/Vol] 10*3/uL Normal <0.01 [facility] Comment on above: Order Comment: Speci men Type: BLOOD SPECIMENOrdering Facility: [facility] Address: [address] [address] Performed By: #### 5 8410-2 ####[facility] LABORATORYCLIA [id number] [address] [id number] [place] Platelet mean volume (Bld) [Entitic vol] 9.2 fL Normal 9.0-12.7 [facility] Comment on above: Order Comment: Speci men Type: BLOOD SPECIMENOrdering Facility: [facility] Address: [address] [place] [address] Performed By: #### 5 8410-2 ####[facility] LABORATORYCLIA [id number] [place] [address] [place] Platelets (Bld) [#/Vol] 156 10*3/uL Normal 150-400 [facility] Comment on above: Order Comment: Speci men Type: BLOOD SPECIMENOrdering Facility: [facility] Address: [address] [place] [address] Performed By: #### 5 8410-2 ####[facility] LABORATORYCLIA [id number] [place] [address] [place] RBC (Bld) [#/Vol] 2.81 10*6/uL Low 4.20-6.00 [facility] Comment on above: Order Comment: Speci men Type: BLOOD SPECIMENOrdering Facility: [facility] Address: [address] [place] [address] Performed By: #### 5 8410-2 ####[facility] LABORATORYCLIA [id number] [place] [address] [place] WBC (Bld) [#/Vol] 6.88 10*3/uL Normal 3.70-11.00 [facility] Comment on above: Order Comment: Speci men Type: BLOOD SPECIMENOrdering Facility: [facility] Address: [address] [place] [address] Performed By: #### 5 8410-2 ####[facility] LABORATORYCLIA [id number] [address] [id number] [facility] [place] CONSULTon 01-01-2023 CONSULT Normal [facility] CONSULT Normal [facility] ROE DIRECTon 01-01-2023 DAGT, POLYSPECIFIC AHG Negative [facility] Comment on above: Order Comment: Speci men Type: BLOOD SPECIMENOrdering Facility: [facility] Address: [address] [place] [address] Performed By: #### T SCR, %[place], D[place] ####[facility] BLOOD BANKCLIA [id number] [address] [place] NURSING PROGon 01-01-2023 NURSING PROG [facility] OPERATIVE NOon 01-01-2023 OPERATIVE NO [facility] SURGICAL PATHOLOGYon 023 CASE REPORT [facility] Comment on above: Order Comment: Speci men Type: DEVICE SPECIMENOrdering Facility: [facility] Address: [address] [place] [address] Result Comment: Surg ical Pathology Report Case: [id number] Provider: Ramón Byrd MD Collected: 01/01/2023 09:43 AMOrdering Location: [facility] Surgery Received: 01/01/2023 12:12 PMPathologist: TIFFANY Saenzpecimen: HARDWARE, Rremoved hardware right distal femur, gross only Performed By: #### S ####[facility] LABORATORYCLIA [id number] [address] [place] CLINICAL HISTORY Normal [facility] Comment on above: Order Comment: Speci men Type: DEVICE SPECIMENOrdering Facility: [facility] Address: [address] [place] [address] Result Comment: Pre- op diagnosis:Mechanical breakdown of internal fixation device of right femur, initial encounter ([facility]) [T84.114A]Periprosthetic fracture around internal prosthetic right hip joint, sequela [M97.01XS]Presence of right artificial knee joint [Z96.651]Presence of right artificial hip joint [Z96.641] Performed By: #### S ####[facility] LABORATORYCLIA [id number] [address] [place] FINAL DIAGNOSIS [facility] Comment on above: Order Comment: Speci men Type: DEVICE SPECIMENOrdering Facility: [facility] Address: [address] [address] Result Comment: A. R ight distal femur hardware, removal: - Orthopedic plate and screws, gross examination only. Performed By: #### S ####[facility] LABORATORYCLIA [id number] [address] FINAL PERFORMING LAB [facility] Comment on above: Order Comment: Speci men Type: DEVICE SPECIMENOrdering Facility: [facility] Address: [address] [place] [address] Result Comment: Diag nostic interpretation performed at [facility], [address] [place] [address] CLIA# [id number] Director: Jannet Rincon M.D. Performed By: #### S ####[facility] LABORATORYCLIA [id number] [address] GROSS DESCRIPTION A. HARDWARE [facility] Comment on above: Order Comment: Speci men Type: DEVICE SPECIMENOrdering Facility: [facility] Address: [address] [place] [address] Result Comment: The specimen is received fresh labeled with the patient's name designated removed hardware right distal femur and consists of a 28.0 x 1.8 x 0.6 cm allred, metallic, fractured plate and 13 allred, metallic screws ranging from 1.3 to 6.0 cm in length x 0.5 cm in diameter. Gross examination only.Gross examination performed at [facility], [address] [place] [address] CLIA#[id number] 2022 12:49 PM Performed By: #### S ####[facility] LABORATORYCLIA [id number] [address] MICROSCOPIC DESCRIPTION Gross examination only. [facility] Comment on above: Order Comment: Speci men Type: DEVICE SPECIMENOrdering Facility: [facility] Address: [address] [place] [address] Performed By: #### S ####[facility] LABORATORYCLIA [id number] [place] [address] [place] TYPE + SCREENon 01-01-2023 ABO O [facility] Comment on above: Order Comment: Speci men Type: BLOOD SPECIMENOrdering Facility: [facility] Address: [address] [place] [address] Performed By: #### T SCR, %[place], DAGT ####[facility] BLOOD BANKCLIA [id number] [place] [address] [place] HISTORICAL AB SCR STATUS Negative [facility] Comment on above: Order Comment: Speci men Type: BLOOD SPECIMENOrdering Facility: [facility] Address: [address] [place] [address] Performed By: #### T SCR, %[place], DAGT ####[facility] BLOOD BANKCLIA [id number] [place] [address] [place] Rh Nom (Bld) Negative [facility] Comment on above: Order Comment: Speci men Type: BLOOD SPECIMENOrdering Facility: [facility] Address: [address] [place] [address] Performed By: #### T SCR, %[place], DAGT ####[facility] BLOOD BANKCLIA [id number] [place] [address] [place] TYPE AND SCREEN EXPIRATION 01/04/2023 23:59 [facility] Comment on above: Order Comment: Speci men Type: BLOOD SPECIMENOrdering Facility: [facility] Address: [address] [place] [address] Performed By: #### T SCR, %[place], DAGT ####[facility] BLOOD BANKCLIA [id number] [place] [address] [place] XR FLUOROSCOPYon 01-01-2023 XR FLUOROSCOPY [facility] ANES PREOPon 12-29-2022 ANES PREOP [facility] CASE MANAGEMon 05-08-2022 CASE MANAGEM Normal [facility] CASE MANAGEM Normal [facility] CBC W Auto Differential pane l (Bld)on 05-08-2022 Basophils/100 WBC (Bld) 1.0 % Normal [facility] Comment on above: Order Comment: Speci men Type: BLOOD SPECIMENOrdering Facility: [facility] Address: [address] [place] [address] Performed By: #### 5 7021-8 ####[facility] LABORATORYCLIA [id number] [place] [address] [place] Differential cell count method Nom (Bld) Manual Normal [facility] Comment on above: Order Comment: Speci men Type: BLOOD SPECIMENOrdering Facility: [facility] Address: [address] [place] [address] Performed By: #### 5 7021-8 ####[facility] LABORATORYCLIA [id number] [place] [address] [place] Eosinophils (Bld) [#/Vol] 0.75 10*3/uL High <0.46 [facility] Comment on above: Order Comment: Speci men Type: BLOOD SPECIMENOrdering Facility: [facility] Address: [address] [place] [address] Performed By: #### 5 7021-8 ####[facility] LABORATORYCLIA [id number] [place] [address] [place] Eosinophils/100 WBC (Bld) 6.0 % Normal [facility] Comment on above: Order Comment: Speci men Type: BLOOD SPECIMENOrdering Facility: [facility] Address: [address] [place] [address] Performed By: #### 5 7021-8 ####[facility] LABORATORYCLIA [id number] [place] [address] [place] Erythrocyte distribution width (RBC) [Ratio] 15.9 % High 11.5-15.0 [facility] Comment on above: Order Comment: Speci men Type: BLOOD SPECIMENOrdering Facility: [facility] Address: [address] Performed By: #### 5 7021-8 ####[facility] LABORATORYCLIA [id number] [place] [address] [place] Hematocrit (Bld) [Volume fraction] 28.8 % Low 39.0-51.0 [facility] Comment on above: Order Comment: Speci men Type: BLOOD SPECIMENOrdering Facility: [facility] Address: [address] [place] [address] Performed By: #### 5 7021-8 ####[facility] LABORATORYCLIA [id number] [place] [address] [place] Hemoglobin (Bld) [Mass/Vol] 9.1 g/dL Low 13.0-17.0 [facility] Comment on above: Order Comment: Speci men Type: BLOOD SPECIMENOrdering Facility: [facility] Address: [address] [place] [address] Performed By: #### 5 7021-8 ####[facility] LABORATORYCLIA [id number] [place] [address] [place] Lymphocytes (Bld) [#/Vol] 0.50 10*3/uL Low 1.00-4.00 [facility] Comment on above: Order Comment: Speci men Type: BLOOD SPECIMENOrdering Facility: [facility] Address: [address] [place] [address] Performed By: #### 5 7021-8 ####[facility] LABORATORYCLIA [id number] [place] [address] [place] Lymphocytes/100 WBC (Bld) 4.0 % Normal [facility] Comment on above: Order Comment: Speci men Type: BLOOD SPECIMENOrdering Facility: [facility] Address: [address] [place], [place] [address] Performed By: #### 5 7021-8 ####[facility] LABORATORYCLIA [id number] [place] [address] [place] MCH (RBC) [Entitic mass] 30.8 pg Normal 26.0-34.0 [facility] Comment on above: Order Comment: Speci men Type: BLOOD SPECIMENOrdering Facility: [facility] Address: [address] [place], [place] [address] Performed By: #### 5 7021-8 ####[facility] LABORATORYCLIA [id number] [place] [address] [place] MCHC (RBC) [Mass/Vol] 31.6 g/dL Normal 30.5-36.0 [facility] Comment on above: Order Comment: Speci men Type: BLOOD SPECIMENOrdering Facility: [facility] Address: [address] [place], [place] [address] Performed By: #### 5 7021-8 ####[facility] LABORATORYCLIA [id number] [place] [address] [place] MCV (RBC) [Entitic vol] 97.6 fL Normal 80.0-100.0 [facility] Comment on above: Order Comment: Speci men Type: BLOOD SPECIMENOrdering Facility: [facility] Address: [address] [place], [place] [address] Performed By: #### 5 7021-8 ####[facility]ATORYCLIA [id number] [place] [address] [place] MYELO% 1.0 % Normal [facility] Comment on above: Order Comment: Speci men Type: BLOOD SPECIMENOrdering Facility: [facility] Address: [address] [place], [place] [address] Performed By: #### 5 7021-8 ####[facility]ATORYCLIA [id number] [place] [address] [place] Neutrophils (Bld) [#/Vol] 9.93 10*3/uL High 1.45-7.50 [facility] Comment on above: Order Comment: Speci men Type: BLOOD SPECIMENOrdering Facility: [facility] Address: [address] [place], [place] [address] Performed By: #### 5 7021-8 ####[facility]ATORYCLIA [id number] [address] [place] Neutrophils/100 WBC (Bld) 79.0 % Normal [facility] Comment on above: Order Comment: Speci men Type: BLOOD SPECIMENOrdering Facility: [facility] Address: [address] [place] [address] Performed By: #### 5 7021-8 ####[facility]ATORYCLIA [id number] [place] [address] [place] Nucleated RBC/100 WBC (Bld) [Ratio] 0.0 /100 WBC Normal [facility] Comment on above: Order Comment: Speci men Type: BLOOD SPECIMENOrdering Facility: [facility] Address: [address] [place] [address] Performed By: #### 5 7021-8 ####[facility]ATORYCLIA [id number] [place] [address] [place] Ovalocytes LM Ql (Bld) Few Normal [facility] Comment on above: Order Comment: Speci men Type: BLOOD SPECIMENOrdering Facility: [facility] Address: [address] [place] [address] Performed By: #### 5 7021-8 ####[facility]ATORYCLIA [id number] [place] [address] [place] PLATELET ESTIMATE Adequate Normal [facility] Comment on above: Order Comment: Speci men Type: BLOOD SPECIMENOrdering Facility: [facility] Address: [address] [place] [address] Performed By: #### 5 7021-8 ####[facility]ATORYCLIA [id number] [place] [address] [place] Platelet mean volume (Bld) [Entitic vol] 9.2 fL Normal 9.0-12.7 [facility] Comment on above: Order Comment: Speci men Type: BLOOD SPECIMENOrdering Facility: [facility] Address: [address] [place] [address] Performed By: #### 5 7021-8 ####[facility]ATORYCLIA [id number] [place] [address] [place] Platelets (Bld) [#/Vol] 373 10*3/uL Normal 150-400 [facility] Comment on above: Order Comment: Speci men Type: BLOOD SPECIMENOrdering Facility: [facility] Address: [address] [place] [address] Performed By: #### 5 7021-8 ####[facility]ATORYCLIA [id number] [place] [address] [place] Polychromasia LM Ql (Bld) Slight Normal [facility] Comment on above: Order Comment: Speci men Type: BLOOD SPECIMENOrdering Facility: [facility] Address: [address] [place] [address] Performed By: #### 5 7021-8 ####[facility]ATORYCLIA [id number] [address] OF [facility] RBC (Bld) [#/Vol] 2.95 10*6/uL Low 4.20-6.00 [facility] Comment on above: Order Comment: Speci men Type: BLOOD SPECIMENOrdering Facility: [facility] Address: [address] [place] [address] Performed By: #### 5 7021-8 ####[facility]ATORYCLIA [id number] [address] RED CELL MORPH Reviewed: see result s of individual morphologies Normal [facility] Comment on above: Order Comment: Speci men Type: BLOOD SPECIMENOrdering Facility: [facility] Address: [address] [place] [address] Performed By: #### 5 7021-8 ####[facility]ATORYCLIA [id number] [address] Target cells LM Ql (Bld) Few Normal [facility] Comment on above: Order Comment: Speci men Type: BLOOD SPECIMENOrdering Facility: [facility] Address: [address] Performed By: #### 5 7021-8 ####[facility]ORATORYCLIA [id number] [place] [address] [place] WAM - ABS BASO 0.13 k/uL High <0.11 [facility] Comment on above: Order Comment: Speci men Type: BLOOD SPECIMENOrdering Facility: [facility] Address: [address] [place] [address] Performed By: #### 5 7021-8 ####[facility]ATORYCLIA [id number] [place] [address] [place] WAM - ABS MONO 1.13 k/uL High <0.87 [facility] Comment on above: Order Comment: Speci men Type: BLOOD SPECIMENOrdering Facility: [facility] Address: [address] [place] [address] Performed By: #### 5 7021-8 ####[facility]ATORYCLIA [id number] [place] [address] [place] WAM - MONO% 9.0 % Normal [facility] Comment on above: Order Comment: Speci men Type: BLOOD SPECIMENOrdering Facility: [facility] Address: [address] [place] [address] Performed By: #### 5 7021-8 ####[facility]ATORYCLIA [id number] [place] [address] [place] WAM ABSOLUTE NRBC <0.01 Normal <0.01 [facility] Comment on above: Order Comment: Speci men Type: BLOOD SPECIMENOrdering Facility: [facility] Address: [address] [place] [address] Performed By: #### 5 7021-8 ####[facility]ATORYCLIA [id number] [place] [address] [place] WBC (Bld) [#/Vol] 12.57 10*3/uL High 3.70-11.00 [facility] Comment on above: Order Comment: Speci men Type: BLOOD SPECIMENOrdering Facility: [facility] Address: [address] [place] [address] Performed By: #### 5 7021-8 ####[facility]ORATORYCLIA [id number] [place] [address] [place] CNDSon 05-08-2022 CNDS Normal [facility] THERAPY NTon 05-08-2022 THERAPY NT Normal [facility] THERAPY NT Normal [facility] CBC W Auto Differential pane l (Bld)on 05-07-2022 Basophils (Bld) [#/Vol] 0.04 10*3/uL Normal <0.11 [facility] Comment on above: Order Comment: Speci men Type: BLOOD SPECIMENOrdering Facility: [facility] Address: [address] [place] [address] Performed By: #### 5 7021-8 ####[facility]ATORYCLIA [id number] [place] [address] [place] Basophils/100 WBC (Bld) 0.3 % Normal [facility] Comment on above: Order Comment: Speci men Type: BLOOD SPECIMENOrdering Facility: [facility] Address: [address] [place] [address] Performed By: #### 5 7021-8 ####[facility]ORATORYCLIA [id number] [place] [address] [place] Differential cell count method Nom (Bld) Auto Normal [facility] Comment on above: Order Comment: Speci men Type: BLOOD SPECIMENOrdering Facility: [facility] Address: [address] [place] [address] Performed By: #### 5 7021-8 ####[facility]ATORYCLIA [id number] [place] [address] [place] Eosinophils (Bld) [#/Vol] 0.22 10*3/uL Normal <0.46 [facility] Comment on above: Order Comment: Speci men Type: BLOOD SPECIMENOrdering Facility: [facility] Address: [address] [place] [address] Performed By: #### 5 7021-8 ####[facility]ATORYCLIA [id number] [place] [address] [place] Eosinophils/100 WBC (Bld) 1.8 % Normal [facility] Comment on above: Order Comment: Speci men Type: BLOOD SPECIMENOrdering Facility: [facility] Address: [address] [place] [address] Performed By: #### 5 7021-8 ####[facility]ORATORYCLIA [id number] [address] [place] Erythrocyte distribution width (RBC) [Ratio] 15.7 % High 11.5-15.0 [facility] Comment on above: Order Comment: Speci men Type: BLOOD SPECIMENOrdering Facility: [facility] Address: [address] [place] [address] Performed By: #### 5 7021-8 ####[facility]ATORYCLIA [id number] [address] [place] Hematocrit (Bld) [Volume fraction] 26.9 % Low 39.0-51.0 [facility] Comment on above: Order Comment: Speci men Type: BLOOD SPECIMENOrdering Facility: [facility] Address: [address] [place] [address] Performed By: #### 5 7021-8 ####[facility]ORATORYCLIA [id number] [place] [address] [place] Hemoglobin (Bld) [Mass/Vol] 8.8 g/dL Low 13.0-17.0 [facility] Comment on above: Order Comment: Speci men Type: BLOOD SPECIMENOrdering Facility: [facility] Address: [address] [place] [address] Performed By: #### 5 7021-8 ####[facility]ORATORYCLIA [id number] [place] [address] [place] IMMATURE GRAN % 0.9 % Normal [facility] Comment on above: Order Comment: Speci men Type: BLOOD SPECIMENOrdering Facility: [facility] Address: [address] [place] [address] Performed By: #### 5 7021-8 ####[facility]ATORYCLIA [id number] [place] [address] [place] IMMATURE GRAN ABS 0.11 k/uL High <0.10 [facility] Comment on above: Order Comment: Speci men Type: BLOOD SPECIMENOrdering Facility: [facility] Address: [address] [place] [address] Performed By: #### 5 7021-8 ####[facility]ATORYCLIA [id number] [address] [place] Lymphocytes (Bld) [#/Vol] 1.03 10*3/uL Normal 1.00-4.00 [facility] Comment on above: Order Comment: Speci men Type: BLOOD SPECIMENOrdering Facility: [facility] Address: [address] [place] [address] Performed By: #### 5 7021-8 ####[facility]ATORYCLIA [id number] [address] Lymphocytes/100 WBC (Bld) 8.2 % Normal [facility] Comment on above: Order Comment: Speci men Type: BLOOD SPECIMENOrdering Facility: [facility] Address: [address] [place] [address] Performed By: #### 5 7021-8 ####[facility]ORATORYCLIA [id number] [place] [address] [place] MCH (RBC) [Entitic mass] 31.3 pg Normal 26.0-34.0 [facility] Comment on above: Order Comment: Speci men Type: BLOOD SPECIMENOrdering Facility: [facility] Address: [address] [place] [address] Performed By: #### 5 7021-8 ####[facility]ORATORYCLIA [id number] [place] [address] [place] MCHC (RBC) [Mass/Vol] 32.7 g/dL Normal 30.5-36.0 [facility] Comment on above: Order Comment: Speci men Type: BLOOD SPECIMENOrdering Facility: [facility] Address: [address] [place] [address] Performed By: #### 5 7021-8 ####[facility]ATORYCLIA [id number] [place] [address] [place] MCV (RBC) [Entitic vol] 95.7 fL Normal 80.0-100.0 [facility] Comment on above: Order Comment: Speci men Type: BLOOD SPECIMENOrdering Facility: [facility] Address: [address] [place] [address] Performed By: #### 5 7021-8 ####[facility]ATORYCLIA [id number] [place] [address] [place] Monocytes (Bld) [#/Vol] 1.65 10*3/uL High <0.87 [facility] Comment on above: Order Comment: Speci men Type: BLOOD SPECIMENOrdering Facility: [facility] Address: [address] [place] [address] Performed By: #### 5 7021-8 ####[facility]ATORYCLIA [id number] [place] [address] [place] Monocytes/100 WBC (Bld) 13.2 % Normal [facility] Comment on above: Order Comment: Speci men Type: BLOOD SPECIMENOrdering Facility: [facility] Address: [address] [place] [address] Performed By: #### 5 7021-8 ####[facility]ATORYCLIA [id number] [place] [address] [place] Neutrophils (Bld) [#/Vol] 9.45 10*3/uL High 1.45-7.50 [facility] Comment on above: Order Comment: Speci men Type: BLOOD SPECIMENOrdering Facility: [facility] Address: [address] Performed By: #### 5 7021-8 ####[facility]ORATORYCLIA [id number] [place] [address] [place] Neutrophils/100 WBC (Bld) 75.6 % Normal [facility] Comment on above: Order Comment: Speci men Type: BLOOD SPECIMENOrdering Facility: [facility] Address: [address] [place] [address] Performed By: #### 5 7021-8 ####[facility]ORATORYCLIA [id number] [place] [address] [place] Nucleated RBC (Bld) [#/Vol] 10*3/uL Normal <0.01 [facility] Comment on above: Order Comment: Speci men Type: BLOOD SPECIMENOrdering Facility: [facility] Address: [address] [place] [address] Performed By: #### 5 7021-8 ####[facility]ORATORYCLIA [id number] [address] [place] Nucleated RBC/100 WBC (Bld) [Ratio] 0.0 /100 WBC Normal [facility] Comment on above: Order Comment: Speci men Type: BLOOD SPECIMENOrdering Facility: [facility] Address: [address] [place] [address] Performed By: #### 5 7021-8 ####[facility]ATORYCLIA [id number] [place] [address] [place] Platelet mean volume (Bld) [Entitic vol] 9.2 fL Normal 9.0-12.7 [facility] Comment on above: Order Comment: Speci men Type: BLOOD SPECIMENOrdering Facility: [facility] Address: [address] [place] [address] Performed By: #### 5 7021-8 ####[facility]ORATORYCLIA [id number] [place] [address] [place] Platelets (Bld) [#/Vol] 340 10*3/uL Normal 150-400 [facility] Comment on above: Order Comment: Speci men Type: BLOOD SPECIMENOrdering Facility: [facility] Address: [address] [place] [address] [place] [address] Performed By: #### 5 7021-8 ####[facility]ORATORYCLIA [id number] [place] [address] [place] RBC (Bld) [#/Vol] 2.81 10*6/uL Low 4.20-6.00 [facility] Comment on above: Order Comment: Speci men Type: BLOOD SPECIMENOrdering Facility: [facility] Address: [address] [place] [address] Performed By: #### 5 7021-8 ####[facility]ATORYCLIA [id number] [address] [place] WBC (Bld) [#/Vol] 12.50 10*3/uL High 3.70-11.00 [facility] Comment on above: Order Comment: Speci men Type: BLOOD SPECIMENOrdering Facility: [facility] Address: [address] [place] [address] Performed By: #### 5 7021-8 ####[facility]ORATORYCLIA [id number] [place] [id number] [place] CONSULTon 05-07-2022 CONSULT Normal [facility] CONSULT PROGon 05-07-2022 CONSULT PROG Normal [facility] Basic metabolic 2000 panelon 05-06-2022 Anion gap [Moles/Vol] 9 mmol/L Normal 5-16 [facility] Comment on above: Order Comment: Speci men Type: BLOOD SPECIMENOrdering Facility: [facility] Address: [address] [place] [address] Performed By: #### 2 4321-2, 17258-7 ####[facility]ATORYCLIA [id number] [place] [address] [place] Calcium [Mass/Vol] 8.3 mg/dL Low 8.5-10.5 [facility] Comment on above: Order Comment: Speci men Type: BLOOD SPECIMENOrdering Facility: [facility] Address: [address] [place] [address] Performed By: #### 2 432-2, ####[facility]ORATORYCLIA [id number] [place] [id number] [place] Chloride [Moles/Vol] 96 mmol/L Low 98-107 [facility] Comment on above: Order Comment: Speci men Type: BLOOD SPECIMENOrdering Facility: [facility] Address: [address] [place] [address] Performed By: #### 2 4322, ####[facility]ATORYCLIA [id number] [place] [address] [place] CO2 [Moles/Vol] 27 mmol/L Normal 21-32 [facility] Comment on above: Order Comment: Speci men Type: BLOOD SPECIMENOrdering Facility: [facility] Address: [address] [place] [address] Performed By: #### 2 4322, ####[facility]ATORYCLIA [id number] [place] [address] [place] Creatinine [Mass/Vol] 6.40 mg/dL High 0.50-1.40 [facility] Comment on above: Order Comment: Speci men Type: BLOOD SPECIMENOrdering Facility: [facility] Address: [address] [place] [address] Result Comment: Macrina ents receiving either N-Acetylcysteine (NAC) or Metamizole prior to venipuncture, may have falsely depressed results. Performed By: #### 2 432-2, ####[facility]ATORYCLIA [id number] [place] [address] [place] ESTIMATED GLOMERULAR FILTRATION RATE 9 mL/min/1.73m??? Low >=60 [facility] Comment on above: Order Comment: Speci men Type: BLOOD SPECIMENOrdering Facility: [facility] Address: [address] [place] [address] Result Comment: Caryl mated Glomerular Filtration Rate [...] actual GFR. Performed By: #### 2 4321-2, ####[facility]ATORYCLIA [id number] [place] [id number] [place] Glucose [Mass/Vol] 129 mg/dL High 70-100 [facility] Comment on above: Order Comment: Kelsi men Type: BLOOD SPECIMENOrdering Facility: [facility] Address: [address] [place] [id number] Result Comment: The [place] [employer] (ADA) provides guidance for cutoff [...] Standards of Medical Care in Diabetes 2016, [place] [employer]. Diabetes Care. 2016.39(Suppl 1).Results may be falsely elevated after the administration of Sulfapyridine.Results may be falsely depressed after the administration of Sulfasalazine. Performed By: #### 2 4321-2, 26413-9 ####[facility]ORATORYCLIA [id number] [place] [id number] [place] Potassium [Moles/Vol] 3.8 mmol/L Normal 3.5-5.1 [facility] Comment on above: Order Comment: Speci men Type: BLOOD SPECIMENOrdering Facility: [facility] Address: [address] [place] [address] Result Comment: Slig ht Hemolysis, Result may be affected. Performed By: #### 2 4321-2, 99593-1 ####[facility]ORATORYCLIA [id number] [place] [address] [place] Sodium [Moles/Vol] 132 mmol/L Low 136-145 [facility] Comment on above: Order Comment: Speci men Type: BLOOD SPECIMENOrdering Facility: [facility] Address: [address] [place] [address] Performed By: #### 2 4321-2, ####[facility]ORATORYCLIA [id number] [place] [address] [place] Urea nitrogen [Mass/Vol] 54 mg/dL High 7-26 [facility] Comment on above: Order Comment: Speci men Type: BLOOD SPECIMENOrdering Facility: [facility] Address: [address] [place] [address] Performed By: #### 2 432-2, ####[facility]ORATORYCLIA [id number] [place] [address] [place] CBC W Auto Differential pane l (Bld)on 05-06-2022 Basophils (Bld) [#/Vol] 0.03 10*3/uL Normal <0.11 [facility] Comment on above: Order Comment: Speci men Type: BLOOD SPECIMENOrdering Facility: [facility] Address: [address] [place] [address] Performed By: #### 5 7021-8 ####[facility]ATORYCLIA [id number] [address] [place] Basophils/100 WBC (Bld) 0.2 % Normal [facility] Comment on above: Order Comment: Speci men Type: BLOOD SPECIMENOrdering Facility: [facility] Address: [address] [place] [address] Performed By: #### 5 7021-8 ####[facility]ATORYCLIA [id number] [place] [address] [place] Differential cell count method Nom (Bld) Auto Normal [facility] Comment on above: Order Comment: Speci men Type: BLOOD SPECIMENOrdering Facility: [facility] Address: [address] [place] [address] Performed By: #### 5 7021-8 ####[facility]ATORYCLIA [id number] [place] [address] [place] Eosinophils (Bld) [#/Vol] 0.32 10*3/uL Normal <0.46 [facility] Comment on above: Order Comment: Speci men Type: BLOOD SPECIMENOrdering Facility: [facility] Address: [address] [place] [address] Performed By: #### 5 7021-8 ####[facility]ORATORYCLIA [id number] [address] [place] Eosinophils/100 WBC (Bld) 1.9 % Normal [facility] Comment on above: Order Comment: Speci men Type: BLOOD SPECIMENOrdering Facility: [facility] Address: [address] [place] [address] Performed By: #### 5 7021-8 ####[facility]ORATORYCLIA [id number] [place] [address] [place] Erythrocyte distribution width (RBC) [Ratio] 15.7 % High 11.5-15.0 [facility] Comment on above: Order Comment: Speci men Type: BLOOD SPECIMENOrdering Facility: [facility] Address: [address] [place] [address] Performed By: #### 5 7021-8 ####[facility]ORATORYCLIA [id number] [address] [place] Hematocrit (Bld) [Volume fraction] 27.9 % Low 39.0-51.0 [facility] Comment on above: Order Comment: Speci men Type: BLOOD SPECIMENOrdering Facility: [facility] Address: [address] [place] [address] Performed By: #### 5 7021-8 ####[facility]ATORYCLIA [id number] [address] [place] Hemoglobin (Bld) [Mass/Vol] 9.0 g/dL Low 13.0-17.0 [facility] Comment on above: Order Comment: Speci men Type: BLOOD SPECIMENOrdering Facility: [facility] Address: [address] [place] [address] Performed By: #### 5 7021-8 ####[facility]ATORYCLIA [id number] [address] [place] IMMATURE GRAN % 1.0 % Normal [facility] Comment on above: Order Comment: Speci men Type: BLOOD SPECIMENOrdering Facility: [facility] Address: [address] [place] [address] Performed By: #### 5 7021-8 ####[facility]ATORYCLIA [id number] [address] IMMATURE GRAN ABS 0.17 k/uL High <0.10 [facility] Comment on above: Order Comment: Speci men Type: BLOOD SPECIMENOrdering Facility: [facility] Address: [address] [place] [address] Performed By: #### 5 7021-8 ####[facility]ATORYCLIA [id number] [place] [address] [facility] [place] Lymphocytes (Bld) [#/Vol] 1.06 10*3/uL Normal 1.00-4.00 [facility] Comment on above: Order Comment: Speci men Type: BLOOD SPECIMENOrdering Facility: [facility] Address: [address] [place] [address] Performed By: #### 5 7021-8 ####[facility]ATORYCLIA [id number] [address] [place] Lymphocytes/100 WBC (Bld) 6.2 % Normal [facility] Comment on above: Order Comment: Speci men Type: BLOOD SPECIMENOrdering Facility: [facility] Address: [address] [place] [address] Performed By: #### 5 7021-8 ####[facility]ATORYCLIA [id number] [address] MCH (RBC) [Entitic mass] 31.0 pg Normal 26.0-34.0 [facility] Comment on above: Order Comment: Speci men Type: BLOOD SPECIMENOrdering Facility: [facility] Address: [address] [place] [address] Performed By: #### 5 7021-8 ####[facility]ATORYCLIA [id number] [address] MCHC (RBC) [Mass/Vol] 32.3 g/dL Normal 30.5-36.0 [facility] Comment on above: Order Comment: Speci men Type: BLOOD SPECIMENOrdering Facility: [facility] Address: [address] [place] [address] Performed By: #### 5 7021-8 ####[facility]ATORYCLIA [id number] [address] [place] MCV (RBC) [Entitic vol] 96.2 fL Normal 80.0-100.0 [facility] Comment on above: Order Comment: Speci men Type: BLOOD SPECIMENOrdering Facility: [facility] Address: [address] [place], [place] [address] Performed By: #### 5 7021-8 ####[facility]ATORYCLIA [id number] [place] [address] [place] Monocytes (Bld) [#/Vol] 1.62 10*3/uL High <0.87 [facility] Comment on above: Order Comment: Speci men Type: BLOOD SPECIMENOrdering Facility: [facility] Address: [address] [place] [address] Performed By: #### 5 7021-8 ####[facility]ATORYCLIA [id number] [place] [address] [place] Monocytes/100 WBC (Bld) 9.4 % Normal [facility] Comment on above: Order Comment: Speci men Type: BLOOD SPECIMENOrdering Facility: [facility] Address: [address] [place] [address] Performed By: #### 5 7021-8 ####[facility]ATORYCLIA [id number] [place] [address] [place] Neutrophils (Bld) [#/Vol] 13.96 10*3/uL High 1.45-7.50 [facility] Comment on above: Order Comment: Speci men Type: BLOOD SPECIMENOrdering Facility: [facility] Address: [address] [place] [address] Performed By: #### 5 7021-8 ####[facility]ATORYCLIA [id number] [place] [address] [place] Neutrophils/100 WBC (Bld) 81.3 % Normal [facility] Comment on above: Order Comment: Speci men Type: BLOOD SPECIMENOrdering Facility: [facility] Address: [address] [place], [place] [address] Performed By: #### 5 7021-8 ####[facility]ORATORYCLIA [id number] [place] [address] [place] Nucleated RBC (Bld) [#/Vol] 10*3/uL Normal <0.01 [facility] Comment on above: Order Comment: Speci men Type: BLOOD SPECIMENOrdering Facility: [facility] Address: [address] [place], [place] [address] Performed By: #### 5 7021-8 ####[facility]ORATORYCLIA [id number] [place] [address] [place] Nucleated RBC/100 WBC (Bld) [Ratio] 0.0 /100 WBC Normal [facility] Comment on above: Order Comment: Speci men Type: BLOOD SPECIMENOrdering Facility: [facility] Address: [address] [place] [address] Performed By: #### 5 7021-8 ####[facility]ORATORYCLIA [id number] [place] [id number] [place] Platelet mean volume (Bld) [Entitic vol] 9.1 fL Normal 9.0-12.7 [facility] Comment on above: Order Comment: Speci men Type: BLOOD SPECIMENOrdering Facility: [facility] Address: [address] [place] [address] Performed By: #### 5 7021-8 ####[facility]ATORYCLIA [id number] [place] [address] [facility] [place] Platelets (Bld) [#/Vol] 325 10*3/uL Normal 150-400 [facility] Comment on above: Order Comment: Speci men Type: BLOOD SPECIMENOrdering Facility: [facility] Address: [address] [place] [address] Performed By: #### 5 7021-8 ####[facility]ORATORYCLIA [id number] [place] [address] [place] RBC (Bld) [#/Vol] 2.90 10*6/uL Low 4.20-6.00 [facility] Comment on above: Order Comment: Speci men Type: BLOOD SPECIMENOrdering Facility: [facility] Address: [address] [place] [address] Performed By: #### 5 7021-8 ####[facility]ORATORYCLIA [id number] [place] [address] [place] WBC (Bld) [#/Vol] 17.16 10*3/uL High 3.70-11.00 [facility] Comment on above: Order Comment: Speci men Type: BLOOD SPECIMENOrdering Facility: [facility] Address: [address] [place] [address] Performed By: #### 5 7021-8 ####[facility]ORATORYCLIA [id number] [place] [id number] [facility] [place] CONSULT PROGon 05-06-2022 CONSULT PROG Normal [facility] Magnesium SerPl-mCncon 05-06 Magnesium [Mass/Vol] 1.9 mg/dL Normal 1.6-2.6 [facility] Comment on above: Order Comment: Speci men Type: BLOOD SPECIMENOrdering Facility: [facility] Address: [address] [place], [place] [address] Performed By: #### 2 4321-2, 66332-1 ####[facility]ORATORYCLIA [id number] [place] [address] [place] NURSING PROGon 05-06-2022 NURSING PROG [facility] SARS-CoV-2 RNA Resp Ql AMADOU+p robeon 05-06-2022 SARS-CoV-2 (COVID-19) RNA AMADOU+probe Ql (Resp) SARS-CoV-2 (Agent of COVID-19) Not Detected by RT-PCR or equivalent method. Normal Not Detected [facility] Comment on above: Order Comment: Speci men Type: SWAB OF INTERNAL NOSEOrdering Facility: [facility] Address: [address] [place] [address] Result Comment: This test has been authorized by FDA under an Emergency Use Authorization (EUA). Performed By: #### 9 4500-6 ####[facility]ORATORYCLIA [id number] [place] [address] [place] ALLIED HEALTHon 05-05-2022 ALLIED HEALTH Normal [facility] Basic metabolic 2000 panelon 05-05-2022 Anion gap [Moles/Vol] 10 mmol/L Normal 5-16 [facility] Comment on above: Order Comment: Speci men Type: BLOOD SPECIMENOrdering Facility: [facility] Address: [address] Performed By: #### 2 4321-2, 08739-0, 97766-8 ####[facility]ORATORYCLIA [id number] [place] [address] [place] Calcium [Mass/Vol] 8.6 mg/dL Normal 8.5-10.5 [facility] Comment on above: Order Comment: Speci men Type: BLOOD SPECIMENOrdering Facility: [facility] Address: [address] [place] [address] Performed By: #### 2 4321-2, 48044-4, 22924-2 ####[facility]ORATORYCLIA [id number] [place] [id number] [place] Chloride [Moles/Vol] 97 mmol/L Low 98-107 [facility] Comment on above: Order Comment: Speci men Type: BLOOD SPECIMENOrdering Facility: [facility] Address: [address] [place] [address] Performed By: #### 2 4321-2, , 24556-3 ####[facility]ORATORYCLIA [id number] [place] [id number] [place] CO2 [Moles/Vol] 29 mmol/L Normal 21-32 [facility] Comment on above: Order Comment: Speci men Type: BLOOD SPECIMENOrdering Facility: [facility] Address: [address] [place] [address] Performed By: #### 2 4321-2, , 68841-3 ####[facility]ORATORYCLIA [id number] [place] [address] [place] Creatinine [Mass/Vol] 5.02 mg/dL High 0.50-1.40 [facility] Comment on above: Order Comment: Speci men Type: BLOOD SPECIMENOrdering Facility: [facility] Address: [address] [place] [address] Result Comment: Macrina ents receiving either N-Acetylcysteine (NAC) or Metamizole prior to venipuncture, may have falsely depressed results. Performed By: #### 2 4321-2, , 56667-9 ####[facility]ATORYCLIA [id number] [place] [id number] [place] ESTIMATED GLOMERULAR FILTRATION RATE 12 mL/min/1.73m??? Low >=60 [facility] Comment on above: Order Comment: Speci men Type: BLOOD SPECIMENOrdering Facility: [facility] Address: [address] [place], [place] [phone] Result Comment: Caryl mated Glomerular Filtration Rate [...] actual GFR. Performed By: #### 2 4321-2, 86824-1, 69872-4 ####[facility]ORATORYCLIA [id number] [place] [id number] [place] Glucose [Mass/Vol] 115 mg/dL High 70-100 [facility] Comment on above: Order Comment: Kelsi huff Type: BLOOD SPECIMENOrdering Facility: [facility] Address: [address] [place], [place] [phone] Result Comment: The [place] [employer] (ADA) provides guidance for cutoff [...] Standards of Medical Care in Diabetes 2016, [place] [employer]. Diabetes Care. 2016.39(Suppl 1).Results may be falsely elevated after the administration of Sulfapyridine.Results may be falsely depressed after the administration of Sulfasalazine. Performed By: #### 2 4321-2, 32674-1, 90715-2 ####[facility]ATORYCLIA [id number] [place] [id number] [place] Potassium [Moles/Vol] 4.1 mmol/L Normal 3.5-5.1 [facility] Comment on above: Order Comment: Speci men Type: BLOOD SPECIMENOrdering Facility: [facility] Address: [address] [place], [place] [address] Performed By: #### 2 4321-2, 76995-8, 47048-9 ####[facility]ATORYCLIA [id number] [place] [id number] [place] Sodium [Moles/Vol] 136 mmol/L Normal 136-145 [facility] Comment on above: Order Comment: Speci men Type: BLOOD SPECIMENOrdering Facility: [facility] Address: [address] [place] [address] Performed By: #### 2 4321-2, 19253-4, 76591-9 ####[facility]ATORYCLIA [id number] [place] [id number] [place] Urea nitrogen [Mass/Vol] 43 mg/dL High 7-26 [facility] Comment on above: Order Comment: Speci men Type: BLOOD SPECIMENOrdering Facility: [facility] Address: [address] [place] [address] Performed By: #### 2 4321-2, 31593-7, 03554-8 ####[facility]ORATORYCLIA [id number] [place] [id number] [place] CASE MANAGEMon 05-05-2022 CASE MANAGEM Normal [facility] CBC W Auto Differential pane l (Bld)on 05-05-2022 Band form neutrophils/100 WBC (Bld) 1.0 % [facility] Comment on above: Order Comment: Speci men Type: BLOOD SPECIMENOrdering Facility: [facility] Address: [address] [place] [address] Performed By: #### 5 7021-8 ####[facility]ORATORYCLIA [id number] [place] [address] [place] Basophils/100 WBC (Bld) 1.0 % Normal [facility] Comment on above: Order Comment: Speci men Type: BLOOD SPECIMENOrdering Facility: [facility] Address: [address] [place] [address] Performed By: #### 5 7021-8 ####[facility]ATORYCLIA [id number] [address] [place] BLAST% 0.0 % Normal <=0.0 [facility] Comment on above: Order Comment: Speci men Type: BLOOD SPECIMENOrdering Facility: [facility] Address: [address] [place] [address] Performed By: #### 5 7021-8 ####[facility]ORATORYCLIA [id number] [address] [place] Differential cell count method Nom (Bld) Manual Normal [facility] Comment on above: Order Comment: Speci men Type: BLOOD SPECIMENOrdering Facility: [facility] Address: [address] [place] [address] Performed By: #### 5 7021-8 ####[facility]ORATORYCLIA [id number] [place] [address] [place] Eosinophils (Bld) [#/Vol] 0.00 10*3/uL Normal <0.46 [facility] Comment on above: Order Comment: Speci men Type: BLOOD SPECIMENOrdering Facility: [facility] Address: [address] [place] [address] Performed By: #### 5 7021-8 ####[facility]ATORYCLIA [id number] [address] [place] Eosinophils/100 WBC (Bld) 0.0 % Normal [facility] Comment on above: Order Comment: Speci men Type: BLOOD SPECIMENOrdering Facility: [facility] Address: [address] [place] [address] Performed By: #### 5 7021-8 ####[facility]ATORYCLIA [id number] [address] [place] Erythrocyte distribution width (RBC) [Ratio] 15.9 % High 11.5-15.0 [facility] Comment on above: Order Comment: Speci men Type: BLOOD SPECIMENOrdering Facility: [facility] Address: [address] [place], [place] [address] Performed By: #### 5 7021-8 ####[facility]ORATORYCLIA [id number] [place] [address] [place] Hematocrit (Bld) [Volume fraction] 27.8 % Low 39.0-51.0 [facility] Comment on above: Order Comment: Speci men Type: BLOOD SPECIMENOrdering Facility: [facility] Address: [address] [place] [address] Performed By: #### 5 7021-8 ####[facility]ORATORYCLIA [id number] [place] [address] [place] Hemoglobin (Bld) [Mass/Vol] 8.9 g/dL Low 13.0-17.0 [facility] Comment on above: Order Comment: Speci men Type: BLOOD SPECIMENOrdering Facility: [facility] Address: [address] [place] [address] Performed By: #### 5 7021-8 ####[facility]ORATORYCLIA [id number] [place] [address] [place] Lymphocytes (Bld) [#/Vol] 1.71 10*3/uL Normal 1.00-4.00 [facility] Comment on above: Order Comment: Speci men Type: BLOOD SPECIMENOrdering Facility: [facility] Address: [address] [place] [address] Performed By: #### 5 7021-8 ####[facility]ATORYCLIA [id number] [place] [address] [place] Lymphocytes/100 WBC (Bld) 7.0 % Normal [facility] Comment on above: Order Comment: Speci men Type: BLOOD SPECIMENOrdering Facility: [facility] Address: [address] [place] [address] Performed By: #### 5 7021-8 ####[facility]ORATORYCLIA [id number] [place] [address] [place] Lymphocytes/100 WBC (Bld) 0.0 % Normal [facility] Comment on above: Order Comment: Speci men Type: BLOOD SPECIMENOrdering Facility: [facility] Address: [address] [place] [address] Performed By: #### 5 7021-8 ####[facility]ATORYCLIA [id number] [address] LYMPHOMA CELL 0.0 % Normal [facility] Comment on above: Order Comment: Speci men Type: BLOOD SPECIMENOrdering Facility: [facility] Address: [address] [place] [address] Performed By: #### 5 7021-8 ####[facility]ORATORYCLIA [id number] [address] [place] MCH (RBC) [Entitic mass] 31.1 pg Normal 26.0-34.0 [facility] Comment on above: Order Comment: Speci men Type: BLOOD SPECIMENOrdering Facility: [facility] Address: [address] [place] [address] Performed By: #### 5 7021-8 ####[facility]ATORYCLIA [id number] [address] [place] MCHC (RBC) [Mass/Vol] 32.0 g/dL Normal 30.5-36.0 [facility] Comment on above: Order Comment: Speci men Type: BLOOD SPECIMENOrdering Facility: [facility] Address: [address] [place] [address] Performed By: #### 5 7021-8 ####[facility]ORATORYCLIA [id number] [address] [place] MCV (RBC) [Entitic vol] 97.2 fL Normal 80.0-100.0 [facility] Comment on above: Order Comment: Speci men Type: BLOOD SPECIMENOrdering Facility: [facility] Address: [address] [place] [address] Performed By: #### 5 7021-8 ####[facility]ORATORYCLIA [id number] [place] [address] [place] MEGAKARYOCYTIC FRAGMENTS 0.0 /100 WBC Normal [facility] Comment on above: Order Comment: Speci men Type: BLOOD SPECIMENOrdering Facility: [facility] Address: [address] [place] [address] Performed By: #### 5 7021-8 ####[facility]ORATORYCLIA [id number] [place] [address] [place] Metamyelocytes/100 WBC (Bld) 0.0 % Normal [facility] Comment on above: Order Comment: Speci men Type: BLOOD SPECIMENOrdering Facility: [facility] Address: [address] [place] [address] Performed By: #### 5 7021-8 ####[facility]ORATORYCLIA [id number] [place] [address] [place] MYELO% 0.0 % Normal [facility] Comment on above: Order Comment: Speci men Type: BLOOD SPECIMENOrdering Facility: [facility] Address: [address] [place] [address] Performed By: #### 5 7021-8 ####[facility]ATORYCLIA [id number] [place] [address] [place] Neutrophils (Bld) [#/Vol] 21.45 10*3/uL High 1.45-7.50 [facility] Comment on above: Order Comment: Speci men Type: BLOOD SPECIMENOrdering Facility: [facility] Address: [address] [place] [address] Performed By: #### 5 7021-8 ####[facility]ATORYCLIA [id number] [address] [place] Neutrophils/100 WBC (Bld) 87.0 % Normal [facility] Comment on above: Order Comment: Speci men Type: BLOOD SPECIMENOrdering Facility: [facility] Address: [address] [place] [address] Performed By: #### 5 7021-8 ####[facility]ATORYCLIA [id number] [address] [place] Nucleated RBC/100 WBC (Bld) [Ratio] 0.0 /100 WBC Normal [facility] Comment on above: Order Comment: Speci men Type: BLOOD SPECIMENOrdering Facility: [facility] Address: [address] [place] [address] Performed By: #### 5 7021-8 ####[facility]ATORYCLIA [id number] [address] [place] OTHER CELLS 0.0 % Normal [facility] Comment on above: Order Comment: Speci men Type: BLOOD SPECIMENOrdering Facility: [facility] Address: [address] [place] [address] Performed By: #### 5 7021-8 ####[facility]ATORYCLIA [id number] [place] [address] [place] Ovalocytes LM Ql (Bld) Few Normal [facility] Comment on above: Order Comment: Speci men Type: BLOOD SPECIMENOrdering Facility: [facility] Address: [address] [place] [address] Performed By: #### 5 7021-8 ####[facility]ORATORYCLIA [id number] [address] [place] PLASMA CELLS 0.0 % Normal [facility] Comment on above: Order Comment: Speci men Type: BLOOD SPECIMENOrdering Facility: [facility] Address: [address] [place] [address] Performed By: #### 5 7021-8 ####[facility]ATORYCLIA [id number] [address] [place] PLATELET ESTIMATE Adequate Normal [facility] Comment on above: Order Comment: Speci men Type: BLOOD SPECIMENOrdering Facility: [facility] Address: [address] [place] [address] Performed By: #### 5 7021-8 ####[facility]ORATORYCLIA [id number] [place] [address] [place] Platelet mean volume (Bld) [Entitic vol] 9.1 fL Normal 9.0-12.7 [facility] Comment on above: Order Comment: Speci men Type: BLOOD SPECIMENOrdering Facility: [facility] Address: [address] [place] [address] Performed By: #### 5 7021-8 ####[facility] LABORATORYCLIA [id number] [place] [address] [place] Platelets (Bld) [#/Vol] 301 10*3/uL Normal 150-400 [facility] Comment on above: Order Comment: Speci men Type: BLOOD SPECIMENOrdering Facility: [facility] [facility] Address: [address] [place] [address] Performed By: #### 5 7021-8 ####[facility]ATORYCLIA [id number] [place] [address] [place] Polychromasia LM Ql (Bld) Slight Normal [facility] Comment on above: Order Comment: Speci men Type: BLOOD SPECIMENOrdering Facility: [facility] Address: [address] [place] [address] Performed By: #### 5 7021-8 ####[facility]ATORYCLIA [id number] [place] [address] [place] PROMYL% 0.0 % Normal [facility] Comment on above: Order Comment: Speci men Type: BLOOD SPECIMENOrdering Facility: [facility] Address: [address] [place] [address] Performed By: #### 5 7021-8 ####[facility]ATORYCLIA [id number] [place] [address] [place] RBC (Bld) [#/Vol] 2.86 10*6/uL Low 4.20-6.00 [facility] Comment on above: Order Comment: Speci men Type: BLOOD SPECIMENOrdering Facility: [facility] Address: [address] [address] Performed By: #### 5 7021-8 ####[facility]ATORYCLIA [id number] [place] [address] [place] RED CELL MORPH Reviewed: see result s of individual morphologies Normal [facility] Comment on above: Order Comment: Speci men Type: BLOOD SPECIMENOrdering Facility: [facility] Address: [address] [place] [address] Performed By: #### 5 7021-8 ####[facility]ATORYCLIA [id number] [place] [address] [place] Variant lymphocytes/100 WBC (Bld) 0.0 % Normal [facility] Comment on above: Order Comment: Speci men Type: BLOOD SPECIMENOrdering Facility: [facility] Address: [address] [place] [address] Performed By: #### 5 7021-8 ####[facility]ATORYCLIA [id number] [place] [address] [place] WAM - ABS BASO 0.24 k/uL High <0.11 [facility] Comment on above: Order Comment: Speci men Type: BLOOD SPECIMENOrdering Facility: [facility] Address: [address] [place] [address] Performed By: #### 5 7021-8 ####[facility]ATORYCLIA [id number] [place] [address] [place] WAM - ABS MONO 0.98 k/uL High <0.87 [facility] Comment on above: Order Comment: Speci men Type: BLOOD SPECIMENOrdering Facility: [facility] Address: [address] [place], [place] [address] Performed By: #### 5 7021-8 ####[facility]ATORYCLIA [id number] [place] [address] [place] WAM - MONO% 4.0 % Normal [facility] Comment on above: Order Comment: Speci men Type: BLOOD SPECIMENOrdering Facility: [facility] Address: [address] [place] [address] Performed By: #### 5 7021-8 ####[facility]ORYCLIA [id number] [place] [address] [place] WAM ABSOLUTE NRBC <0.01 Normal <0.01 [facility] Comment on above: Order Comment: Speci men Type: BLOOD SPECIMENOrdering Facility: [facility] Address: [address] [place] [address] Performed By: #### 5 7021-8 ####[facility]ATORYCLIA [id number] [place] [address] [place] WBC (Bld) [#/Vol] 24.38 10*3/uL High 3.70-11.00 [facility] Comment on above: Order Comment: Speci men Type: BLOOD SPECIMENOrdering Facility: [facility] Address: [address] [place] [address] Performed By: #### 5 7021-8 ####[facility]ATORYCLIA [id number] [place] [address] [place] Magnesium SerPl-mCncon 05-05 Magnesium [Mass/Vol] 1.9 mg/dL Normal 1.6-2.6 [facility] Comment on above: Order Comment: Speci men Type: BLOOD SPECIMENOrdering Facility: [facility] Address: [address] [place] [address] Performed By: #### 2 4321-2, 82013-2, 79793-8 ####[facility]ATORYCLIA [id number] [place] [address] [place] Procalcitonin SerPl-mCncon 0 05-05-2022 Procalcitonin [Mass/Vol] 3.75 ng/mL High 0.00-0.50 [facility] Comment on above: Order Comment: Speci men Type: BLOOD SPECIMENOrdering Facility: [facility] Address: [address] [place] [address] Result Comment: PCT Concentration InterpretationPCT <=0.1 ng/mL:Normal [...] septic shock. Performed By: #### 2 4321-2, 99465-5, 81986-7 ####[facility]ATORYCLIA [id number] [place] [address] [place] THERAPY NTon 05-05-2022 THERAPY NT Normal [facility] Bacteria Bld Culton 05-04-20 Bacteria identified Cx Nom (Bld) No growth 5 days Normal [facility] Comment on above: Order Comment: Kelsi huff Type: BLOOD SPECIMENOrdering Facility: [facility] Address: [address] [place] [address] Performed By: #### 6 00-7 ####[facility]ATORYCLIA [id number] [address] [place] Bacteria identified Cx Nom (Bld) No growth 5 days Normal [facility] Comment on above: Order Comment: Kelsi huff Type: BLOOD SPECIMENOrdering Facility: [facility] Address: [address] [place] [address] Performed By: #### 6 00-7 ####[facility]ATORYCLIA [id number] [address] [place] C diff Tox gens Stl Ql AMADOU+p robeon 05-04-2022 C. difficile toxin genes AMADOU+probe Ql (Stl) Positive Abnormal Negative for C. difficile toxin by PCR [facility] Comment on above: Order Comment: Kelsi huff Type: STOOL SPECIMENOrdering Facility: [facility] Address: [address] [place] [address] Result Comment: A po sitive PCR result [...] submission. Performed By: #### 5 4067-4, CDEIA ####[facility]ATORYCLIA [id number] [address] C. DIFFICILE TOXIN BY EIAon 05-04-2022 C. difficile toxin A+B IA Ql (Stl) Detected Abnormal Negative for C. difficile toxin [facility] Comment on above: Order Comment: Specmarcellus huff Type: STOOL SPECIMENOrdering Facility: [facility] Address: [address] [place] [address] Performed By: #### 5 4067-4, CDEIA ####[facility]ATORYCLIA [id number] [address] CASE MANAGEMon 05-04-2022 CASE MANAGEM Normal [facility] CASE MANAGEM Normal [facility] CASE MANAGEM Normal [facility] CBC W Auto Differential pane l (Bld)on 05-04-2022 Basophils/100 WBC (Bld) 0.0 % [facility] Comment on above: Order Comment: Kelsi huff Type: BLOOD SPECIMENOrdering Facility: [facility] Address: [address] [place] [address] Performed By: #### 5 7021-8 ####[facility]ATORYCLIA [id number] [address] Differential cell count method Nom (Bld) Manual Normal [facility] Comment on above: Order Comment: Kelsi huff Type: BLOOD SPECIMENOrdering Facility: [facility] Address: [address] [place] [address] Performed By: #### 5 7021-8 ####[facility]ATORYCLIA [id number] [place] [address] [place] Eosinophils (Bld) [#/Vol] 0.00 10*3/uL Normal <0.46 [facility] Comment on above: Order Comment: Speci men Type: BLOOD SPECIMENOrdering Facility: [facility] Address: [address] [place] [address] Performed By: #### 5 7021-8 ####[facility]ATORYCLIA [id number] [place] [address] [place] Eosinophils/100 WBC (Bld) 0.0 % Normal [facility] Comment on above: Order Comment: Speci men Type: BLOOD SPECIMENOrdering Facility: [facility] Address: [address] [place] [address] Performed By: #### 5 7021-8 ####[facility]ATORYCLIA [id number] [place] [address] [place] Erythrocyte distribution width (RBC) [Ratio] 15.4 % High 11.5-15.0 [facility] Comment on above: Order Comment: Speci men Type: BLOOD SPECIMENOrdering Facility: [facility] Address: [address] [place] [address] Performed By: #### 5 7021-8 ####[facility]ATORYCLIA [id number] [place] [address] [place] Hematocrit (Bld) [Volume fraction] 26.9 % Low 39.0-51.0 [facility] Comment on above: Order Comment: Speci men Type: BLOOD SPECIMENOrdering Facility: [facility] Address: [address] [place], [place] [address] Performed By: #### 5 7021-8 ####[facility]ATORYCLIA [id number] [place] [address] [place] Hemoglobin (Bld) [Mass/Vol] 8.8 g/dL Low 13.0-17.0 [facility] Comment on above: Order Comment: Speci men Type: BLOOD SPECIMENOrdering Facility: [facility] Address: [address] [place] [address] Performed By: #### 5 7021-8 ####[facility]ATORYCLIA [id number] [place] [address] [place] Lymphocytes (Bld) [#/Vol] 1.29 10*3/uL Normal 1.00-4.00 [facility] Comment on above: Order Comment: Speci men Type: BLOOD SPECIMENOrdering Facility: [facility] Address: [address] [place] [address] Performed By: #### 5 7021-8 ####[facility]ATORYCLIA [id number] [address] Lymphocytes/100 WBC (Bld) 4.0 % Normal [facility] Comment on above: Order Comment: Speci men Type: BLOOD SPECIMENOrdering Facility: [facility] Address: [address] [place] [address] Performed By: #### 5 7021-8 ####[facility]ATORYCLIA [id number] [address] [place] MCH (RBC) [Entitic mass] 31.1 pg Normal 26.0-34.0 [facility] Comment on above: Order Comment: Speci men Type: BLOOD SPECIMENOrdering Facility: [facility] Address: [address] [place] [address] Performed By: #### 5 7021-8 ####[facility]ATORYCLIA [id number] [address] [place] MCHC (RBC) [Mass/Vol] 32.7 g/dL Normal 30.5-36.0 [facility] Comment on above: Order Comment: Speci men Type: BLOOD SPECIMENOrdering Facility: [facility] Address: [address] [place] [address] Performed By: #### 5 7021-8 ####[facility]ATORYCLIA [id number] [address] [place] MCV (RBC) [Entitic vol] 95.1 fL Normal 80.0-100.0 [facility] Comment on above: Order Comment: Speci men Type: BLOOD SPECIMENOrdering Facility: [facility] Address: [address] [place] [address] Performed By: #### 5 7021-8 ####[facility]ATORYCLIA [id number] [place] [address] [place] Neutrophils (Bld) [#/Vol] 29.72 10*3/uL High 1.45-7.50 [facility] Comment on above: Order Comment: Speci men Type: BLOOD SPECIMENOrdering Facility: [facility] Address: [address] [place] [address] Performed By: #### 5 7021-8 ####[facility]ATORYCLIA [id number] [address] [place] Neutrophils/100 WBC (Bld) 92.0 % Normal [facility] Comment on above: Order Comment: Speci men Type: BLOOD SPECIMENOrdering Facility: [facility] Address: [address] [place] [address] Performed By: #### 5 7021-8 ####[facility]ATORYCLIA [id number] [address] [place] Nucleated RBC/100 WBC (Bld) [Ratio] 0.0 /100 WBC Normal [facility] Comment on above: Order Comment: Speci men Type: BLOOD SPECIMENOrdering Facility: [facility] Address: [address] [place] [address] Performed By: #### 5 7021-8 ####[facility]ORATORYCLIA [id number] [place] [address] [place] PLATELET ESTIMATE Adequate Normal [facility] Comment on above: Order Comment: Speci men Type: BLOOD SPECIMENOrdering Facility: [facility] Address: [address] [place] [address] Performed By: #### 5 7021-8 ####[facility]ATORYCLIA [id number] [place] [address] [place] Platelet mean volume (Bld) [Entitic vol] 9.0 fL Normal 9.0-12.7 [facility] Comment on above: Order Comment: Speci men Type: BLOOD SPECIMENOrdering Facility: [facility] Address: [address] Performed By: #### 5 7021-8 ####[facility]ATORYCLIA [id number] [place] [address] [place] Platelets (Bld) [#/Vol] 284 10*3/uL Normal 150-400 [facility] Comment on above: Order Comment: Speci men Type: BLOOD SPECIMENOrdering Facility: [facility] Address: [address] [place], [place] [address] Performed By: #### 5 7021-8 ####[facility]ATORYCLIA [id number] [place] [address] [place] RBC (Bld) [#/Vol] 2.83 10*6/uL Low 4.20-6.00 [facility] Comment on above: Order Comment: Speci men Type: BLOOD SPECIMENOrdering Facility: [facility] Address: [address] [place], [place] [address] Performed By: #### 5 7021-8 ####[facility] LABORATORYIA [id number] [address] [place] RED CELL MORPH Reviewed: unremarkable Normal [facility] Comment on above: Order Comment: Speci men Type: BLOOD SPECIMENOrdering Facility: [facility] Address: [address] [place], [place] [address] Performed By: #### 5 7021-8 ####[facility]ORATORYIA [id number] [address] [place] WAM - ABS BASO 0.00 k/uL Normal <0.11 [facility] Comment on above: Order Comment: Speci men Type: BLOOD SPECIMENOrdering Facility: [facility] Address: [address] [place], [place] [address] Performed By: #### 5 7021-8 ####[facility]ORATORYCLIA [id number] [place] [address] [place] WAM - ABS MONO 1.29 k/uL High <0.87 [facility] Comment on above: Order Comment: Speci men Type: BLOOD SPECIMENOrdering Facility: [facility] Address: [address] [place] [address] Performed By: #### 5 7021-8 ####[facility]ATORYCLIA [id number] [place] [address] [place] WAM - MONO% 4.0 % Normal [facility] Comment on above: Order Comment: Speci men Type: BLOOD SPECIMENOrdering Facility: [facility] Address: [address] [place] [address] Performed By: #### 5 7021-8 ####[facility]ATORYCLIA [id number] [place] [address] [place] WAM ABSOLUTE NRBC <0.01 Normal <0.01 [facility] Comment on above: Order Comment: Speci men Type: BLOOD SPECIMENOrdering Facility: [facility] Address: [address] [place] [address] Performed By: #### 5 7021-8 ####[facility]ATORYCLIA [id number] [place] [address] [place] WBC (Bld) [#/Vol] 32.30 10*3/uL High 3.70-11.00 [facility] Comment on above: Order Comment: Speci men Type: BLOOD SPECIMENOrdering Facility: [facility] Address: [address] [place] [address] Performed By: #### 5 7021-8 ####[facility]ORATORYCLIA [id number] [address] [place] Gastrointestinal pathogens p everett AMADOU+probe (Stl)on 05-04-2022 ADENOVIRUS F 40/41 Not detected Normal Not Detected [facility] Comment on above: Order Comment: Speci men Type: STOOL SPECIMENOrdering Facility: [facility] Address: [address] [place] [address] Performed By: #### 7 9381-0 ####[facility]ATORYCLIA [id number] [place] [address] [place] ASTROVIRUS Not detected Normal Not Detected [facility] Comment on above: Order Comment: Speci men Type: STOOL SPECIMENOrdering Facility: [facility] Address: [address] [place] [address] Performed By: #### 7 9381-0 ####[facility]ATORYCLIA [id number] [place] [address] [place] C. cayetanensis DNA AMADOU+probe Ql (Unsp spec) Not detected Normal Not Detected [facility] Comment on above: Order Comment: Speci men Type: STOOL SPECIMENOrdering Facility: [facility] Address: [address] [place] [address] Performed By: #### 7 9381-0 ####[facility]ATORYCLIA [id number] [place] [address] [place] Campylobacter sp DNA.diarrheagenic AMADOU+probe Ql (Stl) Not detected Normal Not Detected [facility] Comment on above: Order Comment: Speci men Type: STOOL SPECIMENOrdering Facility: [facility] Address: [address] [place] [address] Performed By: #### 7 9381-0 ####[facility]ATORYCLIA [id number] [place] [address] [place] Cryptosporidium sp DNA AMADOU+probe Ql (Unsp spec) Not detected Normal Not detected [facility] Comment on above: Order Comment: Speci men Type: STOOL SPECIMENOrdering Facility: [facility] Address: [address] [place] [address] Performed By: #### 7 9381-0 ####[facility]ATORYCLIA [id number] [place] [address] [place] E. COLI (EAEC) Not detected Normal Not Detected [facility] Comment on above: Order Comment: Speci men Type: STOOL SPECIMENOrdering Facility: [facility] Address: [address] [place] [address] Performed By: #### 7 9381-0 ####[facility]ATORYCLIA [id number] [address] [place] E. COLI (EPEC) Detected Abnormal Not Detected [facility] Comment on above: Order Comment: Speci men Type: STOOL SPECIMENOrdering Facility: [facility] Address: [address] [place] [address] Performed By: #### 7 9381-0 ####[facility]ATORYCLIA [id number] [address] [place] E. COLI (ETEC) Not detected Normal Not Detected [facility] Comment on above: Order Comment: Speci men Type: STOOL SPECIMENOrdering Facility: [facility] Address: [address] [place] [address] Performed By: #### 7 9381-0 ####[facility]ATORYCLIA [id number] [address] [place] E. COLI (STEC) Not detected Normal Not Detected [facility] Comment on above: Order Comment: Speci men Type: STOOL SPECIMENOrdering Facility: [facility] Address: [address] [place] [address] Performed By: #### 7 9381-0 ####[facility]ATORYCLIA [id number] [address] [place] E. coli O157:H7 DNA AMADOU+probe Ql (Unsp spec) Not Applicable Normal Not Detected [facility] Comment on above: Order Comment: Speci men Type: STOOL SPECIMENOrdering Facility: [facility] Address: [address] [place] [address] Performed By: #### 7 9381-0 ####[facility]ATORYCLIA [id number] [place] [address] [place] [facility] [place] E. histolytica DNA AMADOU+probe Ql (Unsp spec) Not detected Normal Not Detected [facility] Comment on above: Order Comment: Speci men Type: STOOL SPECIMENOrdering Facility: [facility] Address: [address] [place] [address] Performed By: #### 7 9381-0 ####[facility]ATORYCLIA [id number] [place] [address] [place] [facility] [place] G. lamblia DNA AMADOU+probe Ql (Unsp spec) Not detected Normal Not Detected [facility] Comment on above: Order Comment: Speci men Type: STOOL SPECIMENOrdering Facility: [facility] Address: [address] [place] [address] Performed By: #### 7 9381-0 ####[facility]ATORYCLIA [id number] [address] [place] NOROVIRUS GI/GII Not detected Normal Not Detected [facility] Comment on above: Order Comment: Speci men Type: STOOL SPECIMENOrdering Facility: [facility] Address: [address] [place] [address] Performed By: #### 7 9381-0 ####[facility]ATORYCLIA [id number] [place] [address] [place] PLESIOMONAS SHIGELLOIDES Not detected Normal Not Detected [facility] Comment on above: Order Comment: Speci men Type: STOOL SPECIMENOrdering Facility: [facility] Address: [address] [place] [address] Performed By: #### 7 9381-0 ####[facility]ATORYCLIA [id number] [place] [address] [place] ROTOVIRUS A Not detected Normal Not Detected [facility] Comment on above: Order Comment: Speci men Type: STOOL SPECIMENOrdering Facility: [facility] Address: [address] [place] [address] Performed By: #### 7 9381-0 ####[facility]ATORYCLIA [id number] [place] [address] [place] Salmonella sp DNA AMADOU+probe Ql (Unsp spec) Not detected Normal Not Detected [facility] Comment on above: Order Comment: Speci men Type: STOOL SPECIMENOrdering Facility: [facility] Address: [address] [place] [address] Performed By: #### 7 9381-0 ####[facility]ATORYCLIA [id number] [place] [address] [place] SAPOVIRUS I,II,IV,V Not detected Normal Not Detected [facility] Comment on above: Order Comment: Speci men Type: STOOL SPECIMENOrdering Facility: [facility] Address: [address] [place] [address] Performed By: #### 7 9381-0 ####[facility]ATORYCLIA [id number] [address] [place] Shigella species+EIEC invasion plasmid antigen H ipaH gene AMADOU+probe Ql (Stl) Not detected Normal Not Detected [facility] Comment on above: Order Comment: Speci men Type: STOOL SPECIMENOrdering Facility: [facility] Address: [address] [place] [address] Performed By: #### 7 9381-0 ####[facility] LABORATORYIA [id number] [place] [address] [place] V. cholerae DNA AMADOU+probe Ql (Unsp spec) Not detected Normal Not Detected [facility] Comment on above: Order Comment: Speci men Type: STOOL SPECIMENOrdering Facility: [facility] Address: [address] [place] [address] Performed By: #### 7 9381-0 ####[facility]ATORYCLIA [id number] [place] [address] [place] [facility] [place] Vibrio sp DNA AMADOU+probe Nom (Unsp spec) Not detected Normal Not Detected [facility] Comment on above: Order Comment: Speci men Type: STOOL SPECIMENOrdering Facility: [facility] Address: [address] [place] [address] Performed By: #### 7 9381-0 ####[facility]ATORYCLIA [id number] [place] [address] [place] Yersinia sp DNA AMADOU+probe Nom (Unsp spec) Not detected Normal Not Detected [facility] Comment on above: Order Comment: Speci men Type: STOOL SPECIMENOrdering Facility: [facility] Address: [address] [place] [address] Performed By: #### 7 9381-0 ####[facility]ATORYCLIA [id number] [place] [address] [place] NUTRITIONon 05-04-2022 NUTRITION Normal [facility] THERAPY NTon 05-04-2022 THERAPY NT Normal [facility] THERAPY NT Normal [facility] XR CHEST 1V FRONTALon 2021 XR CHEST 1V FRONTAL Normal [facility] CASE MANAGEMon 05-03-2022 CASE MANAGEM Normal [facility] CASE MANAGEM Normal [facility] CASE MANAGEM Normal [facility] CASE MANAGEM Normal [facility] CBC W Auto Differential pane l (Bld)on 05-03-2022 Band form neutrophils/100 WBC (Bld) 1.0 % Normal [facility] Comment on above: Order Comment: Speci men Type: BLOOD SPECIMENOrdering Facility: [facility] Address: [address] [place] [address] Performed By: #### 5 7021-8 ####[facility]ATORYCLIA [id number] [place] [address] [place] Basophils/100 WBC (Bld) 0.0 % [facility] Comment on above: Order Comment: Speci men Type: BLOOD SPECIMENOrdering Facility: [facility] Address: [address] [place] [address] Performed By: #### 5 7021-8 ####[facility]ATORYCLIA [id number] [place] [address] [place] Differential cell count method Nom (Bld) Manual Normal [facility] Comment on above: Order Comment: Speci men Type: BLOOD SPECIMENOrdering Facility: [facility] Address: [address] [address] Performed By: #### 5 7021-8 ####[facility]ORATORYCLIA [id number] [place] [address] [place] Eosinophils (Bld) [#/Vol] 0.15 10*3/uL Normal <0.46 [facility] Comment on above: Order Comment: Speci men Type: BLOOD SPECIMENOrdering Facility: [facility] Address: [address] [place] [address] Performed By: #### 5 7021-8 ####[facility]ATORYCLIA [id number] [address] [place] Eosinophils/100 WBC (Bld) 1.0 % Normal [facility] Comment on above: Order Comment: Speci men Type: BLOOD SPECIMENOrdering Facility: [facility] Address: [address] [place] [address] Performed By: #### 5 7021-8 ####[facility]ATORYCLIA [id number] [address] [place] Erythrocyte distribution width (RBC) [Ratio] 15.4 % High 11.5-15.0 [facility] Comment on above: Order Comment: Speci men Type: BLOOD SPECIMENOrdering Facility: [facility] Address: [address] [place] [address] Performed By: #### 5 7021-8 ####[facility]ORATORYCLIA [id number] [address] [place] Hematocrit (Bld) [Volume fraction] 29.2 % Low 39.0-51.0 [facility] Comment on above: Order Comment: Speci men Type: BLOOD SPECIMENOrdering Facility: [facility] Address: [address] [place] [address] Performed By: #### 5 7021-8 ####[facility]ATORYCLIA [id number] [place] [address] [place] Hemoglobin (Bld) [Mass/Vol] 9.4 g/dL Low 13.0-17.0 [facility] Comment on above: Order Comment: Speci men Type: BLOOD SPECIMENOrdering Facility: [facility] Address: [address] [place] [address] Performed By: #### 5 7021-8 ####[facility]ATORYCLIA [id number] [place] [address] [place] Lymphocytes (Bld) [#/Vol] 0.45 10*3/uL Low 1.00-4.00 [facility] Comment on above: Order Comment: Speci men Type: BLOOD SPECIMENOrdering Facility: [facility] Address: [address] [place] [address] Performed By: #### 5 7021-8 ####[facility]ORATORYCLIA [id number] [address] [place] Lymphocytes/100 WBC (Bld) 3.0 % Normal [facility] Comment on above: Order Comment: Speci men Type: BLOOD SPECIMENOrdering Facility: [facility] Address: [address] [place] [address] Performed By: #### 5 7021-8 ####[facility]ATORYCLIA [id number] [place] [address] [place] MCH (RBC) [Entitic mass] 30.8 pg Normal 26.0-34.0 [facility] Comment on above: Order Comment: Speci men Type: BLOOD SPECIMENOrdering Facility: [facility] Address: [address] [place], [place] [address] Performed By: #### 5 7021-8 ####[facility]ORATORYCLIA [id number] [address] [place] MCHC (RBC) [Mass/Vol] 32.2 g/dL Normal 30.5-36.0 [facility] Comment on above: Order Comment: Speci men Type: BLOOD SPECIMENOrdering Facility: [facility] Address: [address] [place] [address] Performed By: #### 5 7021-8 ####[facility]ORATORYCLIA [id number] [place] [address] [place] MCV (RBC) [Entitic vol] 95.7 fL Normal 80.0-100.0 [facility] Comment on above: Order Comment: Speci men Type: BLOOD SPECIMENOrdering Facility: [facility] Address: [address] [place] [address] Performed By: #### 5 7021-8 ####[facility]ORATORYCLIA [id number] [place] [address] [place] Metamyelocytes/100 WBC (Bld) 1.0 % Normal [facility] Comment on above: Order Comment: Speci men Type: BLOOD SPECIMENOrdering Facility: [facility] Address: [address] [place] [address] Performed By: #### 5 7021-8 ####[facility]ORATORYCLIA [id number] [place] [address] [place] Neutrophils (Bld) [#/Vol] 13.48 10*3/uL High 1.45-7.50 [facility] Comment on above: Order Comment: Speci men Type: BLOOD SPECIMENOrdering Facility: [facility] Address: [address] [place] [address] Performed By: #### 5 7021-8 ####[facility]ATORYCLIA [id number] [place] [address] [place] Neutrophils/100 WBC (Bld) 88.0 % Normal [facility] Comment on above: Order Comment: Speci men Type: BLOOD SPECIMENOrdering Facility: [facility] Address: [address] [place] [address] Performed By: #### 5 7021-8 ####[facility]ATORYCLIA [id number] [place] [address] [place] Nucleated RBC/100 WBC (Bld) [Ratio] 0.0 /100 WBC Normal [facility] Comment on above: Order Comment: Speci men Type: BLOOD SPECIMENOrdering Facility: [facility] Address: [address] [place] [address] Performed By: #### 5 7021-8 ####[facility]ATORYCLIA [id number] [place] [address] [place] Ovalocytes LM Ql (Bld) Few Normal [facility] Comment on above: Order Comment: Speci men Type: BLOOD SPECIMENOrdering Facility: [facility] Address: [address] [place] [address] Performed By: #### 5 7021-8 ####[facility]ORATORYCLIA [id number] [address] [place] PLATELET ESTIMATE Adequate Normal [facility] Comment on above: Order Comment: Speci men Type: BLOOD SPECIMENOrdering Facility: [facility] Address: [address] [place] [address] Performed By: #### 5 7021-8 ####[facility]ATORYCLIA [id number] [place] [address] [place] Platelet mean volume (Bld) [Entitic vol] 9.0 fL Normal 9.0-12.7 [facility] Comment on above: Order Comment: Speci men Type: BLOOD SPECIMENOrdering Facility: [facility] Address: [address] [place] [address] Performed By: #### 5 7021-8 ####[facility]ATORYCLIA [id number] [place] [address] [place] Platelets (Bld) [#/Vol] 267 10*3/uL Normal 150-400 [facility] Comment on above: Order Comment: Speci men Type: BLOOD SPECIMENOrdering Facility: [facility] Address: [address] [place] [address] Performed By: #### 5 7021-8 ####[facility]ATORYCLIA [id number] [place] [address] [place] Polychromasia LM Ql (Bld) Slight Normal [facility] Comment on above: Order Comment: Speci men Type: BLOOD SPECIMENOrdering Facility: [facility] Address: [address] [place] [address] Performed By: #### 5 7021-8 ####[facility]ORATORYCLIA [id number] [address] RBC (Bld) [#/Vol] 3.05 10*6/uL Low 4.20-6.00 [facility] Comment on above: Order Comment: Speci men Type: BLOOD SPECIMENOrdering Facility: [facility] Address: [address] [place] [id number] Performed By: #### 5 7021-8 ####[facility]ORATORYCLIA [id number] [address] RED CELL MORPH Reviewed: see result s of individual morphologies Normal [facility] Comment on above: Order Comment: Speci men Type: BLOOD SPECIMENOrdering Facility: [facility] Address: [address] [place] [address] Performed By: #### 5 7021-8 ####[facility]ORATORYCLIA [id number] [address] WAM - ABS BASO 0.00 k/uL Normal <0.11 [facility] Comment on above: Order Comment: Speci men Type: BLOOD SPECIMENOrdering Facility: [facility] Address: [address] [place] [id number] Performed By: #### 5 7021-8 ####[facility]ORATORYCLIA [id number] [address] WAM - ABS MONO 0.91 k/uL High <0.87 [facility] Comment on above: Order Comment: Speci men Type: BLOOD SPECIMENOrdering Facility: [facility] Address: [address] [place] [address] Performed By: #### 5 7021-8 ####[facility]ATORYCLIA [id number] [address] WAM - MONO% 6.0 % Normal [facility] Comment on above: Order Comment: Speci men Type: BLOOD SPECIMENOrdering Facility: [facility] Address: [address] [place] [address] Performed By: #### 5 7021-8 ####[facility]ATORYCLIA [id number] [place] [address] [place] WAM ABSOLUTE NRBC <0.01 Normal <0.01 [facility] Comment on above: Order Comment: Speci men Type: BLOOD SPECIMENOrdering Facility: [facility] Address: [address] [place] [address] Performed By: #### 5 7021-8 ####[facility]ATORYCLIA [id number] [place] [address] [place] WBC (Bld) [#/Vol] 15.15 10*3/uL High 3.70-11.00 [facility] Comment on above: Order Comment: Speci men Type: BLOOD SPECIMENOrdering Facility: [facility] Address: [address] [place] [address] Performed By: #### 5 7021-8 ####[facility]ORATORYCLIA [id number] [place] [address] [place] THERAPY NTon 05-03-2022 THERAPY NT [facility] THERAPY NT [facility] ALLIED HEALTHon 05-02-2022 ALLIED HEALTH [facility] Basic metabolic 2000 panelon 05-02-2022 Anion gap [Moles/Vol] 14 mmol/L Normal 5-16 [facility] Comment on above: Order Comment: Speci men Type: BLOOD SPECIMENOrdering Facility: [facility] Address: [address] [place], [place] [id number] Performed By: #### 2 4321-2 ####[facility]ORATORYCLIA [id number] [place] [address] [place] Calcium [Mass/Vol] 8.3 mg/dL Low 8.5-10.5 [facility] Comment on above: Order Comment: Speci men Type: BLOOD SPECIMENOrdering Facility: [facility] Address: [address] [address] Performed By: #### 2 4321-2 ####[facility]ORATORYCLIA [id number] [place] [id number] [place] Chloride [Moles/Vol] 94 mmol/L Low 98-107 [facility] Comment on above: Order Comment: Speci men Type: BLOOD SPECIMENOrdering Facility: [facility] Address: [address] [place] [address] Performed By: #### 2 4321-2 ####[facility]ORATORYCLIA [id number] [place] [address] [place] CO2 [Moles/Vol] 23 mmol/L Normal 21-32 [facility] Comment on above: Order Comment: Speci men Type: BLOOD SPECIMENOrdering Facility: [facility] Address: [address] [place] [address] Performed By: #### 2 4321-2 ####[facility]ORATORYCLIA [id number] [place] [address] [place] Creatinine [Mass/Vol] 6.09 mg/dL High 0.50-1.40 [facility] Comment on above: Order Comment: Speci men Type: BLOOD SPECIMENOrdering Facility: [facility] Address: [address] [place] [address] Result Comment: Macrina ents receiving either N-Acetylcysteine (NAC) or Metamizole prior to venipuncture, may have falsely depressed results. Performed By: #### 2 4321-2 ####[facility]ORATORYCLIA [id number] [place] [address] [place] ESTIMATED GLOMERULAR FILTRATION RATE 10 mL/min/1.73m??? Low >=60 [facility] Comment on above: Order Comment: Speci men Type: BLOOD SPECIMENOrdering Facility: [facility] Address: [address] [place] [address] Result Comment: Caryl mated Glomerular Filtration Rate [...] actual GFR. Performed By: #### 2 4321-2 ####[facility]ORATORYCLIA [id number] [place] [id number] [place] Glucose [Mass/Vol] 130 mg/dL High 70-100 [facility] Comment on above: Order Comment: Kelsi huff Type: BLOOD SPECIMENOrdering Facility: [facility] Address: [address] [place] [address] Result Comment: The [place] [employer] (ADA) provides guidance for cutoff [...] Standards of Medical Care in Diabetes 2016, [place] [employer]. Diabetes Care. 2016.39(Suppl 1).Results may be falsely elevated after the administration of Sulfapyridine.Results may be falsely depressed after the administration of Sulfasalazine. Performed By: #### 2 4321-2 ####[facility]ORATORYCLIA [id number] [place] [address] [place] Potassium [Moles/Vol] 4.6 mmol/L Normal 3.5-5.1 [facility] Comment on above: Order Comment: Kelsi huff Type: BLOOD SPECIMENOrdering Facility: [facility] Address: [address] [id number] Result Comment: Slig ht Hemolysis, Result may be affected. Performed By: #### 2 4321-2 ####[facility]ORATORYCLIA [id number] [place] [address] [place] Sodium [Moles/Vol] 131 mmol/L Low 136-145 [facility] Comment on above: Order Comment: Speci men Type: BLOOD SPECIMENOrdering Facility: [facility] Address: [address] [place] [address] Performed By: #### 2 4321-2 ####[facility]ATORYCLIA [id number] [place] [address] [place] Urea nitrogen [Mass/Vol] 82 mg/dL High 7-26 [facility] Comment on above: Order Comment: Speci men Type: BLOOD SPECIMENOrdering Facility: [facility] Address: [address] [place] [address] Performed By: #### 2 4321-2 ####[facility]ORATORYCLIA [id number] [address] [place] CASE MANAGEMon 05-02-2022 CASE MANAGEM [facility] CBC W Auto Differential pane l (Bld)on 05-02-2022 Band form neutrophils/100 WBC (Bld) 1.0 % [facility] Comment on above: Order Comment: Speci men Type: BLOOD SPECIMENOrdering Facility: [facility] Address: [address] [place] [address] Performed By: #### 5 7021-8 ####[facility]ATORYCLIA [id number] [place] [address] [place] Basophils/100 WBC (Bld) 0.0 % [facility] Comment on above: Order Comment: Speci men Type: BLOOD SPECIMENOrdering Facility: [facility] Address: [address] [place] [address] Performed By: #### 5 7021-8 ####[facility]ATORYCLIA [id number] [address] [place] Differential cell count method Nom (Bld) Manual Normal [facility] Comment on above: Order Comment: Speci men Type: BLOOD SPECIMENOrdering Facility: [facility] Address: [address] [place] [address] Performed By: #### 5 7021-8 ####[facility]ORATORYCLIA [id number] [place] [address] [place] Eosinophils (Bld) [#/Vol] 0.40 10*3/uL Normal <0.46 [facility] Comment on above: Order Comment: Speci men Type: BLOOD SPECIMENOrdering Facility: [facility] Address: [address] [place] [address] Performed By: #### 5 7021-8 ####[facility]ORATORYCLIA [id number] [address] [place] Eosinophils/100 WBC (Bld) 3.0 % Normal [facility] Comment on above: Order Comment: Speci men Type: BLOOD SPECIMENOrdering Facility: [facility] Address: [address] [place] [address] Performed By: #### 5 7021-8 ####[facility]ORATORYCLIA [id number] [address] [place] Erythrocyte distribution width (RBC) [Ratio] 15.0 % Normal 11.5-15.0 [facility] Comment on above: Order Comment: Speci men Type: BLOOD SPECIMENOrdering Facility: [facility] Address: [address] [place] [address] Performed By: #### 5 7021-8 ####[facility]ORATORYCLIA [id number] [address] [place] Hematocrit (Bld) [Volume fraction] 28.5 % Low 39.0-51.0 [facility] Comment on above: Order Comment: Speci men Type: BLOOD SPECIMENOrdering Facility: [facility] Address: [address] [place] [address] Performed By: #### 5 7021-8 ####[facility]ORATORYCLIA [id number] [place] [address] [place] Hemoglobin (Bld) [Mass/Vol] 9.5 g/dL Low 13.0-17.0 [facility] Comment on above: Order Comment: Speci men Type: BLOOD SPECIMENOrdering Facility: [facility] Address: [address] [place] [address] Performed By: #### 5 7021-8 ####[facility]ORATORYCLIA [id number] [place] [address] [place] Lymphocytes (Bld) [#/Vol] 2.11 10*3/uL Normal 1.00-4.00 [facility] Comment on above: Order Comment: Speci men Type: BLOOD SPECIMENOrdering Facility: [facility] Address: [address] [place] [address] Performed By: #### 5 7021-8 ####[facility]ORATORYCLIA [id number] [address] [place] Lymphocytes/100 WBC (Bld) 16.0 % Normal [facility] Comment on above: Order Comment: Speci men Type: BLOOD SPECIMENOrdering Facility: [facility] Address: [address] [place] [address] Performed By: #### 5 7021-8 ####[facility]ORATORYCLIA [id number] [place] [address] [place] MCH (RBC) [Entitic mass] 30.8 pg Normal 26.0-34.0 [facility] Comment on above: Order Comment: Speci men Type: BLOOD SPECIMENOrdering Facility: [facility] Address: [address] [place], [place] [id number] Performed By: #### 5 7021-8 ####[facility]ORATORYCLIA [id number] [address] [place] MCHC (RBC) [Mass/Vol] 33.3 g/dL Normal 30.5-36.0 [facility] Comment on above: Order Comment: Speci men Type: BLOOD SPECIMENOrdering Facility: [facility] Address: [address] [place], [place] [id number] Performed By: #### 5 7021-8 ####[facility]ORATORYCLIA [id number] [place] [address] [place] MCV (RBC) [Entitic vol] 92.5 fL Normal 80.0-100.0 [facility] Comment on above: Order Comment: Speci men Type: BLOOD SPECIMENOrdering Facility: [facility] Address: [address] [place] [address] Performed By: #### 5 7021-8 ####[facility]ORATORYCLIA [id number] [place] [address] [place] Metamyelocytes/100 WBC (Bld) 1.0 % Normal [facility] Comment on above: Order Comment: Speci men Type: BLOOD SPECIMENOrdering Facility: [facility] Address: [address] [place] [address] Performed By: #### 5 7021-8 ####[facility]ORATORYCLIA [id number] [place] [address] [place] Neutrophils (Bld) [#/Vol] 9.88 10*3/uL High 1.45-7.50 [facility] Comment on above: Order Comment: Speci men Type: BLOOD SPECIMENOrdering Facility: [facility] Address: [address] [place] [address] Performed By: #### 5 7021-8 ####[facility]ORATORYCLIA [id number] [place] [address] [place] Neutrophils/100 WBC (Bld) 74.0 % Normal [facility] Comment on above: Order Comment: Speci men Type: BLOOD SPECIMENOrdering Facility: [facility] Address: [address] [place], [place] [address] Performed By: #### 5 7021-8 ####[facility] LABORATORYCLIA [id number] [place] [address] [place] Nucleated RBC/100 WBC (Bld) [Ratio] 0.0 /100 WBC Normal [facility] Comment on above: Order Comment: Speci men Type: BLOOD SPECIMENOrdering Facility: [facility] Address: [address] [place] [address] Performed By: #### 5 7021-8 ####[facility] LABORATORYCLIA [id number] [place] [address] [place] Ovalocytes LM Ql (Bld) Few Normal [facility] Comment on above: Order Comment: Speci men Type: BLOOD SPECIMENOrdering Facility: [facility] Address: [address] [place] [address] Performed By: #### 5 7021-8 ####[facility]ORATORYCLIA [id number] [address] [place] PLATELET ESTIMATE Adequate Normal [facility] Comment on above: Order Comment: Speci men Type: BLOOD SPECIMENOrdering Facility: [facility] Address: [address] [place] [address] Performed By: #### 5 7021-8 ####[facility]ORATORYCLIA [id number] [place] [address] [place] Platelet mean volume (Bld) [Entitic vol] 9.2 fL Normal 9.0-12.7 [facility] Comment on above: Order Comment: Speci men Type: BLOOD SPECIMENOrdering Facility: [facility] Address: [address] [place] [address] Performed By: #### 5 7021-8 ####[facility] LABORATORYCLIA [id number] [address] [place] Platelets (Bld) [#/Vol] 228 10*3/uL Normal 150-400 [facility] Comment on above: Order Comment: Speci men Type: BLOOD SPECIMENOrdering Facility: [facility] Address: [address] [place] [address] Performed By: #### 5 7021-8 ####[facility]ORATORYCLIA [id number] [place] [address] [place] Polychromasia LM Ql (Bld) Slight Normal [facility] Comment on above: Order Comment: Speci men Type: BLOOD SPECIMENOrdering Facility: [facility] Address: [address] [place] [address] Performed By: #### 5 7021-8 ####[facility] LABORATORYCLIA [id number] [address] OF [facility] RBC (Bld) [#/Vol] 3.08 10*6/uL Low 4.20-6.00 [facility] Comment on above: Order Comment: Speci men Type: BLOOD SPECIMENOrdering Facility: [facility] Address: [address] [place], [place] [address] Performed By: #### 5 7021-8 ####[facility]ORATORYCLIA [id number] [address] RED CELL MORPH Reviewed: see result s of individual morphologies Normal [facility] Comment on above: Order Comment: Speci men Type: BLOOD SPECIMENOrdering Facility: [facility] Address: [address] [place] [address] Performed By: #### 5 7021-8 ####[facility]ORATORYCLIA [id number] [address] WAM - ABS BASO 0.00 k/uL Normal <0.11 [facility] Comment on above: Order Comment: Speci men Type: BLOOD SPECIMENOrdering Facility: [facility] Address: [address] [place] [address] Performed By: #### 5 7021-8 ####[facility] LABORATORYCLIA [id number] [address] WAM - ABS MONO 0.66 k/uL Normal <0.87 [facility] Comment on above: Order Comment: Speci men Type: BLOOD SPECIMENOrdering Facility: [facility] Address: [address] [place] [address] Performed By: #### 5 7021-8 ####[facility]ORATORYCLIA [id number] [place] [address] [place] WAM - MONO% 5.0 % Normal [facility] Comment on above: Order Comment: Speci men Type: BLOOD SPECIMENOrdering Facility: [facility] Address: [address] [place] [address] Performed By: #### 5 7021-8 ####[facility]ORATORYCLIA [id number] [place] [address] [place] WAM ABSOLUTE NRBC <0.01 Normal <0.01 [facility] Comment on above: Order Comment: Speci men Type: BLOOD SPECIMENOrdering Facility: [facility] Address: [address] [place] [address] Performed By: #### 5 7021-8 ####[facility]ORATORYCLIA [id number] [place] [address] [place] WBC (Bld) [#/Vol] 13.17 10*3/uL High 3.70-11.00 [facility] Comment on above: Order Comment: Speci men Type: BLOOD SPECIMENOrdering Facility: [facility] Address: [address] [place] [address] Performed By: #### 5 7021-8 ####[facility]ORATORYCLIA [id number] [place] [address] [place] CONSULT PROGon 05-02-2022 CONSULT PROG [facility] CONSULT PROG [facility] THERAPY NTon 05-02-2022 THERAPY NT [facility] THERAPY NT [facility] Basic metabolic 2000 panelon 05-01-2022 Anion gap [Moles/Vol] 10 mmol/L Normal 5-16 [facility] Comment on above: Order Comment: Speci men Type: BLOOD SPECIMENOrdering Facility: [facility] Address: [address] [place] [address] Performed By: #### 2 4321-2 ####[facility]ORATORYCLIA [id number] [place] [address] [place] Calcium [Mass/Vol] 8.3 mg/dL Low 8.5-10.5 [facility] Comment on above: Order Comment: Speci men Type: BLOOD SPECIMENOrdering Facility: [facility] Address: [address] [place] [address] Performed By: #### 2 4321-2 ####[facility] LABORATORYCLIA [id number] [place] [address] [place] Chloride [Moles/Vol] 95 mmol/L Low 98-107 [facility] Comment on above: Order Comment: Speci men Type: BLOOD SPECIMENOrdering Facility: [facility] Address: [address] [place] [address] Performed By: #### 2 4321-2 ####[facility]ORATORYCLIA [id number] [place] [address] [place] CO2 [Moles/Vol] 29 mmol/L Normal 21-32 [facility] Comment on above: Order Comment: Speci men Type: BLOOD SPECIMENOrdering Facility: [facility] Address: [address] [place] [address] Performed By: #### 2 4321-2 ####[facility]ORATORYCLIA [id number] [place] [address] [place] Creatinine [Mass/Vol] 5.48 mg/dL High 0.50-1.40 [facility] Comment on above: Order Comment: Speci men Type: BLOOD SPECIMENOrdering Facility: [facility] Address: [address] [place] [address] Result Comment: Macrina ents receiving either N-Acetylcysteine (NAC) or Metamizole prior to venipuncture, may have falsely depressed results. Performed By: #### 2 4321-2 ####[facility]ORATORYCLIA [id number] [place] [address] [place] ESTIMATED GLOMERULAR FILTRATION RATE 11 mL/min/1.73m??? Low >=60 [facility] Comment on above: Order Comment: Speci men Type: BLOOD SPECIMENOrdering Facility: [facility] Address: [address] [id number] Result Comment: Caryl mated Glomerular Filtration Rate [...] actual GFR. Performed By: #### 2 4321-2 ####[facility]ORATORYCLIA [id number] [place] [address] [place] Glucose [Mass/Vol] 125 mg/dL High 70-100 [facility] Comment on above: Order Comment: Specmarcellus men Type: BLOOD SPECIMENOrdering Facility: [facility] Address: [address] [phone] Result Comment: The [place] [employer] (ADA) provides guidance for cutoff [...] Standards of Medical Care in Diabetes 2016, [place] [employer]. Diabetes Care. 2016.39(Suppl 1).Results may be falsely elevated after the administration of Sulfapyridine.Results may be falsely depressed after the administration of Sulfasalazine. Performed By: #### 2 4321-2 ####[facility]ORATORYCLIA [id number] [place] [address] [place] Potassium [Moles/Vol] 4.2 mmol/L Normal 3.5-5.1 [facility] Comment on above: Order Comment: Samanthai daria Type: BLOOD SPECIMENOrdering Facility: [facility] Address: [address] [phone] Result Comment: Slig ht Hemolysis, Result may be affected. Performed By: #### 2 4321-2 ####[facility] LABORATORYCLIA [id number] [address] [place] Sodium [Moles/Vol] 134 mmol/L Low 136-145 [facility] Comment on above: Order Comment: Speci men Type: BLOOD SPECIMENOrdering Facility: [facility] Address: [address] [place] [address] Performed By: #### 2 4321-2 ####[facility]ORATORYCLIA [id number] [place] [address] [place] Urea nitrogen [Mass/Vol] 67 mg/dL High 7-26 [facility] Comment on above: Order Comment: Speci men Type: BLOOD SPECIMENOrdering Facility: [facility] Address: [address] [place] [address] Performed By: #### 2 4321-2 ####[facility]ORATORYCLIA [id number] [address] [place] CBC W Auto Differential pane l (Bld)on 05-01-2022 Band form neutrophils/100 WBC (Bld) 1.0 % Normal [facility] Comment on above: Order Comment: Speci men Type: BLOOD SPECIMENOrdering Facility: [facility] Address: [address] [place] [address] Performed By: #### 5 7021-8 ####[facility]ORATORYCLIA [id number] [address] [place] Basophils/100 WBC (Bld) 0.0 % Normal [facility] Comment on above: Order Comment: Speci men Type: BLOOD SPECIMENOrdering Facility: [facility] Address: [address] [place] [address] Performed By: #### 5 7021-8 ####[facility]ORATORYCLIA [id number] [address] BLAST% 0.0 % Normal <=0.0 [facility] Comment on above: Order Comment: Speci men Type: BLOOD SPECIMENOrdering Facility: [facility] Address: [address] [place] [address] Performed By: #### 5 7021-8 ####[facility]ORATORYCLIA [id number] [place] [address] [place] Dacrocytes LM Ql (Bld) Few Normal [facility] Comment on above: Order Comment: Speci men Type: BLOOD SPECIMENOrdering Facility: [facility] Address: [address] [place] [address] Performed By: #### 5 7021-8 ####[facility]ORATORYCLIA [id number] [address] Differential cell count method Nom (Bld) Manual Normal [facility] Comment on above: Order Comment: Speci men Type: BLOOD SPECIMENOrdering Facility: [facility] Address: [address] [place] [address] Performed By: #### 5 7021-8 ####[facility]ORATORYCLIA [id number] [place] [address] [place] Eosinophils (Bld) [#/Vol] 0.24 10*3/uL Normal <0.46 [facility] Comment on above: Order Comment: Speci men Type: BLOOD SPECIMENOrdering Facility: [facility] Address: [address] [place] [address] Performed By: #### 5 7021-8 ####[facility] LABORATORYCLIA [id number] [address] STATES [facility] Eosinophils/100 WBC (Bld) 2.0 % Normal [facility] Comment on above: Order Comment: Speci men Type: BLOOD SPECIMENOrdering Facility: [facility] Address: [address] [place] [address] Performed By: #### 5 7021-8 ####[facility] LABORATORYCLIA [id number] [address] [place] Erythrocyte distribution width (RBC) [Ratio] 15.0 % Normal 11.5-15.0 [facility] Comment on above: Order Comment: Speci men Type: BLOOD SPECIMENOrdering Facility: [facility] Address: [address] [place], [place] [address] Performed By: #### 5 7021-8 ####[facility]ORATORYCLIA [id number] [place] [address] [place] Hematocrit (Bld) [Volume fraction] 28.3 % Low 39.0-51.0 [facility] Comment on above: Order Comment: Speci men Type: BLOOD SPECIMENOrdering Facility: [facility] Address: [address] [place], [place] [address] Performed By: #### 5 7021-8 ####[facility]ORATORYCLIA [id number] [place] [address] [place] Hemoglobin (Bld) [Mass/Vol] 9.6 g/dL Low 13.0-17.0 [facility] Comment on above: Order Comment: Speci men Type: BLOOD SPECIMENOrdering Facility: [facility] Address: [address] [place], [place] [address] Performed By: #### 5 7021-8 ####[facility]ORATORYCLIA [id number] [place] [address] [place] Lymphocytes (Bld) [#/Vol] 2.52 10*3/uL Normal 1.00-4.00 [facility] Comment on above: Order Comment: Speci men Type: BLOOD SPECIMENOrdering Facility: [facility] Address: [address] [place] [address] Performed By: #### 5 7021-8 ####[facility]ORATORYCLIA [id number] [place] [address] [place] Lymphocytes/100 WBC (Bld) 21.0 % Normal [facility] Comment on above: Order Comment: Speci men Type: BLOOD SPECIMENOrdering Facility: [facility] Address: [address] [place] [address] Performed By: #### 5 7021-8 ####[facility]ORATORYCLIA [id number] [address] [place] Lymphocytes/100 WBC (Bld) 0.0 % Normal [facility] Comment on above: Order Comment: Speci men Type: BLOOD SPECIMENOrdering Facility: [facility] Address: [address] [place] [address] Performed By: #### 5 7021-8 ####[facility]ORATORYCLIA [id number] [address] LYMPHOMA CELL 0.0 % Normal [facility] Comment on above: Order Comment: Speci men Type: BLOOD SPECIMENOrdering Facility: [facility] Address: [address] [place] [address] Performed By: #### 5 7021-8 ####[facility]ORATORYCLIA [id number] [address] [place] MCH (RBC) [Entitic mass] 31.5 pg Normal 26.0-34.0 [facility] Comment on above: Order Comment: Speci men Type: BLOOD SPECIMENOrdering Facility: [facility] Address: [address] [place] [address] Performed By: #### 5 7021-8 ####[facility] LABORATORYCLIA [id number] [address] [place] MCHC (RBC) [Mass/Vol] 33.9 g/dL Normal 30.5-36.0 [facility] Comment on above: Order Comment: Speci men Type: BLOOD SPECIMENOrdering Facility: [facility] Address: [address] [place] [address] Performed By: #### 5 7021-8 ####[facility] LABORATORYCLIA [id number] [address] MCV (RBC) [Entitic vol] 92.8 fL Normal 80.0-100.0 [facility] Comment on above: Order Comment: Speci men Type: BLOOD SPECIMENOrdering Facility: [facility] Address: [address] [address] Performed By: #### 5 7021-8 ####[facility]ORATORYCLIA [id number] [place] [address] [place] MEGAKARYOCYTIC FRAGMENTS 0.0 /100 WBC Normal [facility] Comment on above: Order Comment: Speci men Type: BLOOD SPECIMENOrdering Facility: [facility] Address: [address] [place] [address] Performed By: #### 5 7021-8 ####[facility]ORATORYCLIA [id number] [place] [address] [place] Metamyelocytes/100 WBC (Bld) 2.0 % Normal [facility] Comment on above: Order Comment: Speci men Type: BLOOD SPECIMENOrdering Facility: [facility] Address: [address] [place] [address] Performed By: #### 5 7021-8 ####[facility]ORATORYCLIA [id number] [address] [place] MYELO% 2.0 % Normal [facility] Comment on above: Order Comment: Speci men Type: BLOOD SPECIMENOrdering Facility: [facility] Address: [address] [place] [address] Performed By: #### 5 7021-8 ####[facility]ORATORYCLIA [id number] [place] [address] [place] Neutrophils (Bld) [#/Vol] 7.45 10*3/uL Normal 1.45-7.50 [facility] Comment on above: Order Comment: Speci men Type: BLOOD SPECIMENOrdering Facility: [facility] Address: [address] [place] [address] Performed By: #### 5 7021-8 ####[facility]ORATORYCLIA [id number] [place] [address] [place] Neutrophils/100 WBC (Bld) 61.0 % Normal [facility] Comment on above: Order Comment: Speci men Type: BLOOD SPECIMENOrdering Facility: [facility] Address: [address] [place] [address] Performed By: #### 5 7021-8 ####[facility]ORATORYCLIA [id number] [place] [address] [place] Nucleated RBC/100 WBC (Bld) [Ratio] 0.0 /100 WBC Normal [facility] Comment on above: Order Comment: Speci men Type: BLOOD SPECIMENOrdering Facility: [facility] Address: [address] [place] [address] Performed By: #### 5 7021-8 ####[facility]ORATORYCLIA [id number] [address] OTHER CELLS 0.0 % [facility] Comment on above: Order Comment: Speci men Type: BLOOD SPECIMENOrdering Facility: [facility] Address: [address] [place] [address] Performed By: #### 5 7021-8 ####[facility]ORATORYCLIA [id number] [place] [address] [place] Ovalocytes LM Ql (Bld) Few Normal [facility] Comment on above: Order Comment: Speci men Type: BLOOD SPECIMENOrdering Facility: [facility] Address: [address] [place] [address] Performed By: #### 5 7021-8 ####[facility]ORATORYCLIA [id number] [address] [place] PLASMA CELLS 0.0 % Normal [facility] Comment on above: Order Comment: Speci men Type: BLOOD SPECIMENOrdering Facility: [facility] Address: [address] [place] [address] Performed By: #### 5 7021-8 ####[facility]ORATORYCLIA [id number] [place] [address] [place] PLATELET ESTIMATE Adequate Normal [facility] Comment on above: Order Comment: Speci men Type: BLOOD SPECIMENOrdering Facility: [facility] Address: [address] [place] [phone] Performed By: #### 5 7021-8 ####[facility]ORATORYCLIA [id number] [place] [address] [place] Platelet mean volume (Bld) [Entitic vol] 9.1 fL Normal 9.0-12.7 [facility] Comment on above: Order Comment: Speci men Type: BLOOD SPECIMENOrdering Facility: [facility] Address: [address] [facility] [address]Myriam[address] Performed By: #### 5 7021-8 ####[facility]ORATORYCLIA [id number] [place] [address] [place] Platelets (Bld) [#/Vol] 265 10*3/uL Normal 150-400 [facility] Comment on above: Order Comment: Speci men Type: BLOOD SPECIMENOrdering Facility: [facility] Address: [address] [place], [place] [address]Jade [address] Performed By: #### 5 7021-8 ####[facility]ORATORYCLIA [id number] [place] [address] [place] Polychromasia LM Ql (Bld) Slight Normal [facility] Comment on above: Order Comment: Speci men Type: BLOOD SPECIMENOrdering Facility: [facility] Address: [address] Performed By: #### 5 7021-8 ####[facility]ORATORYCLIA [id number] [place] [address] [place] PROMYL% 0.0 % Normal [facility] Comment on above: Order Comment: Speci men Type: BLOOD SPECIMENOrdering Facility: [facility] Address: [address] Performed By: #### 5 7021-8 ####[facility]ORATORYCLIA [id number] [place] [address] [place] RBC (Bld) [#/Vol] 3.05 10*6/uL Low 4.20-6.00 [facility] Comment on above: Order Comment: Speci men Type: BLOOD SPECIMENOrdering Facility: [facility] Address: [address] [place] [address] Performed By: #### 5 7021-8 ####[facility]ORATORYCLIA [id number] [address] [place] RED CELL MORPH Reviewed: see result s of individual morphologies Normal [facility] Comment on above: Order Comment: Speci men Type: BLOOD SPECIMENOrdering Facility: [facility] Address: [address] [place] [address] Performed By: #### 5 7021-8 ####[facility]ORATORYCLIA [id number] [place] [address] [place] Variant lymphocytes/100 WBC (Bld) 0.0 % Normal [facility] Comment on above: Order Comment: Speci men Type: BLOOD SPECIMENOrdering Facility: [facility] Address: [address] [place] [address] Performed By: #### 5 7021-8 ####[facility]ORATORYCLIA [id number] [place] [address] [place] WAM - ABS BASO 0.00 k/uL Normal <0.11 [facility] Comment on above: Order Comment: Speci men Type: BLOOD SPECIMENOrdering Facility: [facility] Address: [address] [place] [address] Performed By: #### 5 7021-8 ####[facility]ORATORYCLIA [id number] [place] [address] [place] WAM - ABS MONO 1.32 k/uL High <0.87 [facility] Comment on above: Order Comment: Speci men Type: BLOOD SPECIMENOrdering Facility: [facility] Address: [address] [place] [address] Performed By: #### 5 7021-8 ####[facility]ORATORYCLIA [id number] [place] [address] [place] WAM - MONO% 11.0 % Normal [facility] Comment on above: Order Comment: Speci men Type: BLOOD SPECIMENOrdering Facility: [facility] [facility] Address: [address] [place], [place] [address] Performed By: #### 5 7021-8 ####[facility]ATORYCLIA [id number] [place] [address] [place] WAM ABSOLUTE NRBC <0.01 Normal <0.01 [facility] Comment on above: Order Comment: Speci men Type: BLOOD SPECIMENOrdering Facility: [facility] Address: [address] [place], [place] [address] Performed By: #### 5 7021-8 ####[facility] LABORATORYCLIA [id number] [place] [address] [place] WBC (Bld) [#/Vol] 12.02 10*3/uL High 3.70-11.00 [facility] Comment on above: Order Comment: Speci men Type: BLOOD SPECIMENOrdering Facility: [facility] Address: [address] [place], [place] [address] Performed By: #### 5 7021-8 ####[facility] LABORATORYCLIA [id number] [place] [address] [place] CONSULT PROGon 05-01-2022 CONSULT PROG [facility] THERAPY NTon 05-01-2022 THERAPY NT Normal [facility] ALLIED HEALTHon 04-30-2022 ALLIED HEALTH Normal [facility] Basic metabolic 2000 panelon 04-30-2022 Anion gap [Moles/Vol] 8 mmol/L Normal 5-16 [facility] Comment on above: Order Comment: Speci men Type: BLOOD SPECIMENOrdering Facility: [facility] Address: [address] [place] [address] Performed By: #### 2 4321-2, 87696-5, 2777-1 ####[facility]ORATORYCLIA [id number] [place] [address] [place] Calcium [Mass/Vol] 8.3 mg/dL Low 8.5-10.5 [facility] Comment on above: Order Comment: Speci men Type: BLOOD SPECIMENOrdering Facility: [facility] Address: [address] [place], [place] [address] Performed By: #### 2 4321-2, , 2776-08 ####[facility] LABORATORYCLIA [id number] [place] [id number] [place] Chloride [Moles/Vol] 96 mmol/L Low 98-107 [facility] Comment on above: Order Comment: Speci men Type: BLOOD SPECIMENOrdering Facility: [facility] Address: [address] [place], [place] [address] Performed By: #### 2 4321-2, , 2776-08 ####[facility]ORATORYCLIA [id number] [place] [address] [place] CO2 [Moles/Vol] 28 mmol/L Normal 21-32 [facility] Comment on above: Order Comment: Speci men Type: BLOOD SPECIMENOrdering Facility: [facility] Address: [address] [place], [place] [address] Performed By: #### 2 4321-2, , 2776-08 ####[facility]ORATORYCLIA [id number] [place] [address] [place] Creatinine [Mass/Vol] 4.08 mg/dL High 0.50-1.40 [facility] Comment on above: Order Comment: Speci men Type: BLOOD SPECIMENOrdering Facility: [facility] Address: [address] [place], [place] [address] Result Comment: Macrina ents receiving either N-Acetylcysteine (NAC) or Metamizole prior to venipuncture, may have falsely depressed results. Performed By: #### 2 4321-2, , 2776-08 ####[facility]ORATORYCLIA [id number] [place] [id number] [place] ESTIMATED GLOMERULAR FILTRATION RATE 16 mL/min/1.73m??? Low >=60 [facility] Comment on above: Order Comment: Kelsi huff Type: BLOOD SPECIMENOrdering Facility: [facility] Address: [address] [place] [id number] Result Comment: Caryl mated Glomerular Filtration Rate [...] actual GFR. Performed By: #### 2 4321-2, 24440-8, 2776- ####[facility]ORATORYCLIA [id number] [place] [id number] [place] Glucose [Mass/Vol] 266 mg/dL High 70-100 [facility] Comment on above: Order Comment: Kelsi huff Type: BLOOD SPECIMENOrdering Facility: [facility] Address: [address] [place] [address] Result Comment: The [place] [employer] (ADA) provides guidance for cutoff [...] Standards of Medical Care in Diabetes 2016, [place] [employer]. Diabetes Care. 2016.39(Suppl 1).Results may be falsely elevated after the administration of Sulfapyridine.Results may be falsely depressed after the administration of Sulfasalazine. Performed By: #### 2 4321-2, 77579-6, 2776-08 ####[facility]ATORYCLIA [id number] [place] [id number] [place] Potassium [Moles/Vol] 4.1 mmol/L Normal 3.5-5.1 [facility] Comment on above: Order Comment: Speci men Type: BLOOD SPECIMENOrdering Facility: [facility] Address: [address] [place], [place] [address] Performed By: #### 2 4321-2, , 2776-08 ####[facility]ORATORYCLIA [id number] [place] [address] [place] Sodium [Moles/Vol] 132 mmol/L Low 136-145 [facility] Comment on above: Order Comment: Speci men Type: BLOOD SPECIMENOrdering Facility: [facility] Address: [address] [place] [address] Performed By: #### 2 4321-2, , 2776-08 ####[facility] LABORATORYCLIA [id number] [place] [address] [place] Urea nitrogen [Mass/Vol] 44 mg/dL High 7-26 [facility] Comment on above: Order Comment: Speci men Type: BLOOD SPECIMENOrdering Facility: [facility] Address: [address] [place] [address] Performed By: #### 2 4321-2, , 2776-08 ####[facility]ORATORYCLIA [id number] [place] [address] [place] CBC W Auto Differential pane l (Bld)on 04-30-2022 Basophils (Bld) [#/Vol] 0.03 10*3/uL Normal <0.11 [facility] Comment on above: Order Comment: Speci men Type: BLOOD SPECIMENOrdering Facility: [facility] Address: [address] [place] [address] Performed By: #### 5 7021-8 ####[facility]ORATORYCLIA [id number] [address] [place] Basophils/100 WBC (Bld) 0.2 % Normal [facility] Comment on above: Order Comment: Speci men Type: BLOOD SPECIMENOrdering Facility: [facility] Address: [address] [place], [place] [address] Performed By: #### 5 7021-8 ####[facility]ORATORYCLIA [id number] [address] [place] Differential cell count method Nom (Bld) Auto Normal [facility] Comment on above: Order Comment: Speci men Type: BLOOD SPECIMENOrdering Facility: [facility] Address: [address] [place] [address] Performed By: #### 5 7021-8 ####[facility]ORATORYCLIA [id number] [place] [address] [place] Eosinophils (Bld) [#/Vol] 0.08 10*3/uL Normal <0.46 [facility] Comment on above: Order Comment: Speci men Type: BLOOD SPECIMENOrdering Facility: [facility] Address: [address] [place] [address] Performed By: #### 5 7021-8 ####[facility]ORATORYCLIA [id number] [address] [place] Eosinophils/100 WBC (Bld) 0.6 % Normal [facility] Comment on above: Order Comment: Speci men Type: BLOOD SPECIMENOrdering Facility: [facility] Address: [address] [place] [address] Performed By: #### 5 7021-8 ####[facility]ORATORYCLIA [id number] [address] [place] Erythrocyte distribution width (RBC) [Ratio] 15.2 % High 11.5-15.0 [facility] Comment on above: Order Comment: Speci men Type: BLOOD SPECIMENOrdering Facility: [facility] Address: [address] [place] [address] Performed By: #### 5 7021-8 ####[facility]ORATORYCLIA [id number] [place] [address] [place] Hematocrit (Bld) [Volume fraction] 26.4 % Low 39.0-51.0 [facility] Comment on above: Order Comment: Speci men Type: BLOOD SPECIMENOrdering Facility: [facility] Address: [address] [place] [address] Performed By: #### 5 7021-8 ####[facility]ORATORYCLIA [id number] [address] Hemoglobin (Bld) [Mass/Vol] 8.6 g/dL Low 13.0-17.0 [facility] Comment on above: Order Comment: Speci men Type: BLOOD SPECIMENOrdering Facility: [facility] Address: [address] [place] [address] Performed By: #### 5 7021-8 ####[facility]ORATORYCLIA [id number] [address] IMMATURE GRAN % 2.1 % Normal [facility] Comment on above: Order Comment: Speci men Type: BLOOD SPECIMENOrdering Facility: [facility] Address: [address] [place] [address] Performed By: #### 5 7021-8 ####[facility]ORATORYCLIA [id number] [address] IMMATURE GRAN ABS 0.29 k/uL High <0.10 [facility] Comment on above: Order Comment: Speci men Type: BLOOD SPECIMENOrdering Facility: [facility] Address: [address] [place] [address] Performed By: #### 5 7021-8 ####[facility]ATORYCLIA [id number] [address] [place] Lymphocytes (Bld) [#/Vol] 1.02 10*3/uL Normal 1.00-4.00 [facility] Comment on above: Order Comment: Speci men Type: BLOOD SPECIMENOrdering Facility: [facility] Address: [address] [place] [address] Performed By: #### 5 7021-8 ####[facility]ORATORYCLIA [id number] [address] Lymphocytes/100 WBC (Bld) 7.3 % Normal [facility] Comment on above: Order Comment: Speci men Type: BLOOD SPECIMENOrdering Facility: [facility] Address: [address] [place], [place] [address] Performed By: #### 5 7021-8 ####[facility]ORATORYCLIA [id number] [address] [place] MCH (RBC) [Entitic mass] 30.9 pg Normal 26.0-34.0 [facility] Comment on above: Order Comment: Speci men Type: BLOOD SPECIMENOrdering Facility: [facility] Address: [address] [place], [place] [address] Performed By: #### 5 7021-8 ####[facility]ORATORYCLIA [id number] [address] [place] MCHC (RBC) [Mass/Vol] 32.6 g/dL Normal 30.5-36.0 [facility] Comment on above: Order Comment: Speci men Type: BLOOD SPECIMENOrdering Facility: [facility] Address: [address] [place], [place] [address] Performed By: #### 5 7021-8 ####[facility]ORATORYCLIA [id number] [address] [place] MCV (RBC) [Entitic vol] 95.0 fL Normal 80.0-100.0 [facility] Comment on above: Order Comment: Speci men Type: BLOOD SPECIMENOrdering Facility: [facility] Address: [address] [place], [place] [address] Performed By: #### 5 7021-8 ####[facility]ORATORYCLIA [id number] [address] [place] Monocytes (Bld) [#/Vol] 1.70 10*3/uL High <0.87 [facility] Comment on above: Order Comment: Speci men Type: BLOOD SPECIMENOrdering Facility: [facility] Address: [address] [place], [place] [address] Performed By: #### 5 7021-8 ####[facility]ORATORYCLIA [id number] [place] [address] [place] Monocytes/100 WBC (Bld) 12.1 % Normal [facility] Comment on above: Order Comment: Speci men Type: BLOOD SPECIMENOrdering Facility: [facility] Address: [address] [place] [address] Performed By: #### 5 7021-8 ####[facility]ORATORYCLIA [id number] [place] [address] [place] Neutrophils (Bld) [#/Vol] 10.94 10*3/uL High 1.45-7.50 [facility] Comment on above: Order Comment: Speci men Type: BLOOD SPECIMENOrdering Facility: [facility] Address: [address] [place] [address] Performed By: #### 5 7021-8 ####[facility]ORATORYCLIA [id number] [place] [address] [place] Neutrophils/100 WBC (Bld) 77.7 % Normal [facility] Comment on above: Order Comment: Speci men Type: BLOOD SPECIMENOrdering Facility: [facility] Address: [address] [place] [address] Performed By: #### 5 7021-8 ####[facility]ORATORYCLIA [id number] [place] [address] [place] Nucleated RBC (Bld) [#/Vol] 0.04 10*3/uL High <0.01 [facility] Comment on above: Order Comment: Speci men Type: BLOOD SPECIMENOrdering Facility: [facility] Address: [address] [place] [address] Performed By: #### 5 7021-8 ####[facility]ORATORYCLIA [id number] [place] [address] [place] Nucleated RBC/100 WBC (Bld) [Ratio] 0.3 /100 WBC Normal [facility] Comment on above: Order Comment: Speci men Type: BLOOD SPECIMENOrdering Facility: [facility] Address: [address] [place], [place] [address] Performed By: #### 5 7021-8 ####[facility]ORATORYCLIA [id number] [place] [id number] [place] Platelet mean volume (Bld) [Entitic vol] 9.3 fL Normal 9.0-12.7 [facility] Comment on above: Order Comment: Speci men Type: BLOOD SPECIMENOrdering Facility: [facility] Address: [address] [place], [place] [address] Performed By: #### 5 7021-8 ####[facility]ORATORYCLIA [id number] [place] [address] [place] Platelets (Bld) [#/Vol] 233 10*3/uL Normal 150-400 [facility] Comment on above: Order Comment: Speci men Type: BLOOD SPECIMENOrdering Facility: [facility] Address: [address] [place], [place] [address] Performed By: #### 5 7021-8 ####[facility]ORATORYCLIA [id number] [place] [address] [place] RBC (Bld) [#/Vol] 2.78 10*6/uL Low 4.20-6.00 [facility] Comment on above: Order Comment: Speci men Type: BLOOD SPECIMENOrdering Facility: [facility] Address: [address] [place], [place] [address] Performed By: #### 5 7021-8 ####[facility]ORATORYCLIA [id number] [place] [id number] [place] WBC (Bld) [#/Vol] 14.06 10*3/uL High 3.70-11.00 [facility] Comment on above: Order Comment: Speci men Type: BLOOD SPECIMENOrdering Facility: [facility] Address: [address] [place] [address] Performed By: #### 5 7021-8 ####[facility]ORATORYCLIA [id number] [place] [id number] [place] Calcium.ionized [Moles/Vol]o n 04-30-2022 Calcium.ionized (Bld) [Mass/Vol] 1.06 mmol/L Low 1.16-1.32 [facility] Comment on above: Order Comment: Speci men Type: BLOOD SPECIMENOrdering Facility: [facility] Address: [address] [place] [address] Performed By: #### 1 995-0 ####[facility]ORATORYCLIA [id number] [place] [id number] [place] Magnesium [facility] Magnesium [Mass/Vol] 2.1 mg/dL Normal 1.6-2.6 [facility] Comment on above: Order Comment: Speci men Type: BLOOD SPECIMENOrdering Facility: [facility] Address: [address] [place] [address] Performed By: #### 2 4321-2, 60859-6, 27771 ####[facility]ORATORYCLIA [id number] [address] [place] NURSING PROGon 04-30-2022 NURSING PROG Normal [facility] Phosphate [Mass/Vol] 3.3 mg/dL Normal 2.5-4.9 [facility] Comment on above: Order Comment: Speci men Type: BLOOD SPECIMENOrdering Facility: [facility] Address: [address] [place], [place] [address] Result Comment: Elev ated m-protein (paraprotein) levels in the serum may be exhibited in patients with monoclonal gammopathies, causing falsely elevated inorganic phosphorus results. Performed By: #### 2 4321-2, 64324-3, 2777-1 ####[facility]ORATORYCLIA [id number] [place] [id number] [place] XR CHEST 1V FRONTALon 2021 XR CHEST 1V FRONTAL Normal [facility] Basic metabolic 2000 panelon 04-29-2022 Anion gap [Moles/Vol] 14 mmol/L Normal 5-16 [facility] Comment on above: Order Comment: Speci men Type: BLOOD SPECIMENOrdering Facility: [facility] Address: [address] Performed By: #### 2 4321-2, ####[facility]ORATORYCLIA [id number] [place] [id number] [place] Calcium [Mass/Vol] 8.7 mg/dL Normal 8.5-10.5 [facility] Comment on above: Order Comment: Speci men Type: BLOOD SPECIMENOrdering Facility: [facility] Address: [address] [place] [address] [place] [address] Performed By: #### 2 4321-2, ####[facility]ATORYCLIA [id number] [place] [address] [place] Chloride [Moles/Vol] 97 mmol/L Low 98-107 [facility] Comment on above: Order Comment: Speci men Type: BLOOD SPECIMENOrdering Facility: [facility] Address: [address] [place] [address] Performed By: #### 2 4321-2, ####[facility]ORATORYCLIA [id number] [place] [address] [place] CO2 [Moles/Vol] 25 mmol/L Normal 21-32 [facility] Comment on above: Order Comment: Speci men Type: BLOOD SPECIMENOrdering Facility: [facility] Address: [address] [facility] [address] Performed By: #### 2 4321-2, ####[facility]ORATORYCLIA [id number] [place] [address] [place] Creatinine [Mass/Vol] 5.91 mg/dL High 0.50-1.40 [facility] Comment on above: Order Comment: Speci men Type: BLOOD SPECIMENOrdering Facility: [facility] Address: [address] [place] [address] Result Comment: Macrina ents receiving either N-Acetylcysteine (NAC) or Metamizole prior to venipuncture, may have falsely depressed results. Performed By: #### 2 4321-2, ####[facility]ORATORYCLIA [id number] [place] [id number] [place] ESTIMATED GLOMERULAR FILTRATION RATE 10 mL/min/1.73m??? Low >=60 [facility] Comment on above: Order Comment: Kelsi men Type: BLOOD SPECIMENOrdering Facility: [facility] Address: [address] [place] [address] Result Comment: Caryl mated Glomerular Filtration Rate [...] actual GFR. Performed By: #### 2 4321-2, ####[facility]ATORYCLIA [id number] [place] [address] [place] Glucose [Mass/Vol] 225 mg/dL High 70-100 [facility] Comment on above: Order Comment: Kelsi huff Type: BLOOD SPECIMENOrdering Facility: [facility] Address: [address] [place] [id number] Result Comment: The [place] [employer] (ADA) provides guidance for cutoff [...] Standards of Medical Care in Diabetes 2016, [place] [employer]. Diabetes Care. 2016.39(Suppl 1).Results may be falsely elevated after the administration of Sulfapyridine.Results may be falsely depressed after the administration of Sulfasalazine. Performed By: #### 2 4321-2, 27399-2 ####[facility]ORATORYCLIA [id number] [place] [address] [place] Potassium [Moles/Vol] 4.6 mmol/L Normal 3.5-5.1 [facility] Comment on above: Order Comment: Speci men Type: BLOOD SPECIMENOrdering Facility: [facility] Address: [address] [place] [address] Performed By: #### 2 4321-2, ####[facility]ORATORYCLIA [id number] [place] [address] [place] Sodium [Moles/Vol] 136 mmol/L Normal 136-145 [facility] Comment on above: Order Comment: Speci men Type: BLOOD SPECIMENOrdering Facility: [facility] Address: [address] [place] [address] Performed By: #### 2 4321-2, ####[facility]ORATORYCLIA [id number] [place] [address] [place] Urea nitrogen [Mass/Vol] 71 mg/dL High 7-26 [facility] Comment on above: Order Comment: Speci men Type: BLOOD SPECIMENOrdering Facility: [facility] Address: [address] [place] [address] Performed By: #### 2 432-2, ####[facility]ORATORYCLIA [id number] [place] [address] [place] CBC W Auto Differential pane l (Bld)on 04-29-2022 Basophils (Bld) [#/Vol] 0.04 10*3/uL Normal <0.11 [facility] Comment on above: Order Comment: Speci men Type: BLOOD SPECIMENOrdering Facility: [facility] Address: [address] [place] [address] Performed By: #### 5 7021-8 ####[facility]ORATORYCLIA [id number] [place] [address] [place] Basophils/100 WBC (Bld) 0.2 % Normal [facility] Comment on above: Order Comment: Speci men Type: BLOOD SPECIMENOrdering Facility: [facility] Address: [address] [place] [address] Performed By: #### 5 7021-8 ####[facility]ORATORYCLIA [id number] [place] [address] [place] Differential cell count method Nom (Bld) Auto Normal [facility] Comment on above: Order Comment: Speci men Type: BLOOD SPECIMENOrdering Facility: [facility] Address: [address] [place] [address] Performed By: #### 5 7021-8 ####[facility]ATORYCLIA [id number] [place] [address] [place] Eosinophils (Bld) [#/Vol] 0.12 10*3/uL Normal <0.46 [facility] Comment on above: Order Comment: Speci men Type: BLOOD SPECIMENOrdering Facility: [facility] Address: [address] [place] [address] Performed By: #### 5 7021-8 ####[facility]ATORYCLIA [id number] [address] [place] Eosinophils/100 WBC (Bld) 0.6 % Normal [facility] Comment on above: Order Comment: Speci men Type: BLOOD SPECIMENOrdering Facility: [facility] Address: [address] [place] [address] Performed By: #### 5 7021-8 ####[facility]ORATORYCLIA [id number] [address] [place] Erythrocyte distribution width (RBC) [Ratio] 15.6 % High 11.5-15.0 [facility] Comment on above: Order Comment: Speci men Type: BLOOD SPECIMENOrdering Facility: [facility] Address: [address] [place] [address] Performed By: #### 5 7021-8 ####[facility]ORATORYCLIA [id number] [address] Hematocrit (Bld) [Volume fraction] 28.2 % Low 39.0-51.0 [facility] Comment on above: Order Comment: Speci men Type: BLOOD SPECIMENOrdering Facility: [facility] Address: [address] [place] [address] Performed By: #### 5 7021-8 ####[facility]ATORYCLIA [id number] [address] Hemoglobin (Bld) [Mass/Vol] 9.1 g/dL Low 13.0-17.0 [facility] Comment on above: Order Comment: Speci men Type: BLOOD SPECIMENOrdering Facility: [facility] Address: [address] [place] [address] Performed By: #### 5 7021-8 ####[facility]ATORYCLIA [id number] [address] [place] IMMATURE GRAN % 1.2 % Normal [facility] Comment on above: Order Comment: Speci men Type: BLOOD SPECIMENOrdering Facility: [facility] Address: [address] [place] [address] Performed By: #### 5 7021-8 ####[facility]ATORYCLIA [id number] [place] [address] [place] IMMATURE GRAN ABS 0.23 k/uL High <0.10 [facility] Comment on above: Order Comment: Speci men Type: BLOOD SPECIMENOrdering Facility: [facility] Address: [address] [place] [address] Performed By: #### 5 7021-8 ####[facility]ATORYCLIA [id number] [address] [place] Lymphocytes (Bld) [#/Vol] 0.68 10*3/uL Low 1.00-4.00 [facility] Comment on above: Order Comment: Speci men Type: BLOOD SPECIMENOrdering Facility: [facility] Address: [address] [place] [address] Performed By: #### 5 7021-8 ####[facility]ATORYCLIA [id number] [address] [place] Lymphocytes/100 WBC (Bld) 3.6 % Normal [facility] Comment on above: Order Comment: Speci men Type: BLOOD SPECIMENOrdering Facility: [facility] Address: [address] [place] [address] Performed By: #### 5 7021-8 ####[facility]ATORYCLIA [id number] [address] [place] MCH (RBC) [Entitic mass] 30.7 pg Normal 26.0-34.0 [facility] Comment on above: Order Comment: Speci men Type: BLOOD SPECIMENOrdering Facility: [facility] Address: [address] [place] [address] Performed By: #### 5 7021-8 ####[facility]ATORYCLIA [id number] [address] [place] MCHC (RBC) [Mass/Vol] 32.3 g/dL Normal 30.5-36.0 [facility] Comment on above: Order Comment: Speci men Type: BLOOD SPECIMENOrdering Facility: [facility] Address: [address] [place] [address] Performed By: #### 5 7021-8 ####[facility]ATORYCLIA [id number] [address] [place] MCV (RBC) [Entitic vol] 95.3 fL Normal 80.0-100.0 [facility] Comment on above: Order Comment: Speci men Type: BLOOD SPECIMENOrdering Facility: [facility] Address: [address] [place] [address] Performed By: #### 5 7021-8 ####[facility]ATORYCLIA [id number] [place] [address] [place] Monocytes (Bld) [#/Vol] 1.30 10*3/uL High <0.87 [facility] Comment on above: Order Comment: Speci men Type: BLOOD SPECIMENOrdering Facility: [facility] Address: [address] [place] [address] Performed By: #### 5 7021-8 ####[facility]ATORYCLIA [id number] [place] [address] [place] Monocytes/100 WBC (Bld) 6.8 % Normal [facility] Comment on above: Order Comment: Speci men Type: BLOOD SPECIMENOrdering Facility: [facility] Address: [address] [place] [address] Performed By: #### 5 7021-8 ####[facility]ATORYCLIA [id number] [place] [address] [place] Neutrophils (Bld) [#/Vol] 16.77 10*3/uL High 1.45-7.50 [facility] Comment on above: Order Comment: Speci men Type: BLOOD SPECIMENOrdering Facility: [facility] Address: [address] [place] [address] Performed By: #### 5 7021-8 ####[facility]ATORYCLIA [id number] [place] [address] [place] Neutrophils/100 WBC (Bld) 87.6 % Normal [facility] Comment on above: Order Comment: Speci men Type: BLOOD SPECIMENOrdering Facility: [facility] Address: [address] [place] [address] Performed By: #### 5 7021-8 ####[facility]ORATORYCLIA [id number] [place] [address] [place] Nucleated RBC (Bld) [#/Vol] 0.03 10*3/uL High <0.01 [facility] Comment on above: Order Comment: Speci men Type: BLOOD SPECIMENOrdering Facility: [facility] Address: [address] Performed By: #### 5 7021-8 ####[facility]ORATORYCLIA [id number] [place] [id number] [place] Nucleated RBC/100 WBC (Bld) [Ratio] 0.2 /100 WBC Normal [facility] Comment on above: Order Comment: Speci men Type: BLOOD SPECIMENOrdering Facility: [facility] Address: [address] [place] [address] Performed By: #### 5 7021-8 ####[facility]ORATORYCLIA [id number] [place] [address] [place] Platelet mean volume (Bld) [Entitic vol] 9.7 fL Normal 9.0-12.7 [facility] Comment on above: Order Comment: Speci men Type: BLOOD SPECIMENOrdering Facility: [facility] Address: [address] [place] [address] Performed By: #### 5 7021-8 ####[facility]ORATORYCLIA [id number] [place] [address] [place] Platelets (Bld) [#/Vol] 215 10*3/uL Normal 150-400 [facility] Comment on above: Order Comment: Speci men Type: BLOOD SPECIMENOrdering Facility: [facility] Address: [address] [place] [address] Performed By: #### 5 7021-8 ####[facility]ORATORYCLIA [id number] [place] [address] [place] RBC (Bld) [#/Vol] 2.96 10*6/uL Low 4.20-6.00 [facility] Comment on above: Order Comment: Speci men Type: BLOOD SPECIMENOrdering Facility: [facility] Address: [address] [place] [address] Performed By: #### 5 7021-8 ####[facility]ORATORYCLIA [id number] [place] [id number] [place] WBC (Bld) [#/Vol] 19.14 10*3/uL High 3.70-11.00 [facility] Comment on above: Order Comment: Speci men Type: BLOOD SPECIMENOrdering Facility: [facility] Address: [address] [place] [address] Performed By: #### 5 7021-8 ####[facility]ATORYCLIA [id number] [place] [address] [place] Magnesium SerPl-mCncon 04-29 Magnesium [Mass/Vol] 2.8 mg/dL High 1.6-2.6 [facility] Comment on above: Order Comment: Speci men Type: BLOOD SPECIMENOrdering Facility: [facility] Address: [address] [place] [address] Performed By: #### 2 4321-2, 71530-7 ####[facility]ORATORYCLIA [id number] [place] [address] [place] ANES POSTPROC EVALon 022 ANES POSTPROC EVAL Normal [facility] ANES PRE-OPon 04-28-2022 ANES PRE-OP Normal [facility] CASE MANAGEMon 04-28-2022 CASE MANAGEM Normal [facility] CBC W Auto Differential pane l (Bld)on 04-28-2022 Band form neutrophils/100 WBC (Bld) 0.0 % [facility] Comment on above: Order Comment: Speci men Type: BLOOD SPECIMENOrdering Facility: [facility] Address: [address] [place] [address] Performed By: #### 5 7021-8 ####[facility]ORATORYCLIA [id number] [address] STATES [facility] Basophils/100 WBC (Bld) 0.0 % [facility] Comment on above: Order Comment: Speci men Type: BLOOD SPECIMENOrdering Facility: [facility] Address: [address] [place] [address] Performed By: #### 5 7021-8 ####[facility]ORATORYCLIA [id number] [place] [address] [place] BLAST% 0.0 % Normal <=0.0 [facility] Comment on above: Order Comment: Speci men Type: BLOOD SPECIMENOrdering Facility: [facility] Address: [address] [place] [address] Performed By: #### 5 7021-8 ####[facility]ORATORYCLIA [id number] [place] [address] [place] [facility] [place] Differential cell count method Nom (Bld) Manual Normal [facility] Comment on above: Order Comment: Speci men Type: BLOOD SPECIMENOrdering Facility: [facility] Address: [address] [place] [address] Performed By: #### 5 7021-8 ####[facility]ATORYCLIA [id number] [place] [address] [place] Eosinophils (Bld) [#/Vol] 0.18 10*3/uL Normal <0.46 [facility] Comment on above: Order Comment: Speci men Type: BLOOD SPECIMENOrdering Facility: [facility] Address: [address] [place] [address] Performed By: #### 5 7021-8 ####[facility]ORATORYCLIA [id number] [address] [place] Eosinophils/100 WBC (Bld) 1.0 % Normal [facility] Comment on above: Order Comment: Speci men Type: BLOOD SPECIMENOrdering Facility: [facility] Address: [address] [place] [address] Performed By: #### 5 7021-8 ####[facility]ATORYCLIA [id number] [address] [place] Erythrocyte distribution width (RBC) [Ratio] 16.2 % High 11.5-15.0 [facility] Comment on above: Order Comment: Speci men Type: BLOOD SPECIMENOrdering Facility: [facility] Address: [address] [place] [address] Performed By: #### 5 7021-8 ####[facility]ORATORYCLIA [id number] [place] [address] [place] Hematocrit (Bld) [Volume fraction] 27.2 % Low 39.0-51.0 [facility] Comment on above: Order Comment: Speci men Type: BLOOD SPECIMENOrdering Facility: [facility] Address: [address] [place] [address] Performed By: #### 5 7021-8 ####[facility]ATORYCLIA [id number] [place] [address] [place] Hemoglobin (Bld) [Mass/Vol] 8.8 g/dL Low 13.0-17.0 [facility] Comment on above: Order Comment: Speci men Type: BLOOD SPECIMENOrdering Facility: [facility] Address: [address] [place] [address] Performed By: #### 5 7021-8 ####[facility]ATORYCLIA [id number] [place] [address] [place] Lymphocytes (Bld) [#/Vol] 1.08 10*3/uL Normal 1.00-4.00 [facility] Comment on above: Order Comment: Speci men Type: BLOOD SPECIMENOrdering Facility: [facility] Address: [address] [place] [address] Performed By: #### 5 7021-8 ####[facility]ATORYCLIA [id number] [place] [address] [place] Lymphocytes/100 WBC (Bld) 6.0 % Normal [facility] Comment on above: Order Comment: Speci men Type: BLOOD SPECIMENOrdering Facility: [facility] Address: [address] [place] [address] Performed By: #### 5 7021-8 ####[facility]ATORYCLIA [id number] [place] [address] [place] Lymphocytes/100 WBC (Bld) 0.0 % Normal [facility] Comment on above: Order Comment: Speci men Type: BLOOD SPECIMENOrdering Facility: [facility] Address: [address] [place] [address] Performed By: #### 5 7021-8 ####[facility]ORATORYCLIA [id number] [address] LYMPHOMA CELL 0.0 % Normal [facility] Comment on above: Order Comment: Speci men Type: BLOOD SPECIMENOrdering Facility: [facility] Address: [address] [place] [address] Performed By: #### 5 7021-8 ####[facility]ORATORYCLIA [id number] [address] [place] MCH (RBC) [Entitic mass] 31.3 pg Normal 26.0-34.0 [facility] Comment on above: Order Comment: Speci men Type: BLOOD SPECIMENOrdering Facility: [facility] Address: [address] [place] [address] Performed By: #### 5 7021-8 ####[facility]ORATORYCLIA [id number] [address] [place] MCHC (RBC) [Mass/Vol] 32.4 g/dL Normal 30.5-36.0 [facility] Comment on above: Order Comment: Speci men Type: BLOOD SPECIMENOrdering Facility: [facility] Address: [address] [place] [address] Performed By: #### 5 7021-8 ####[facility]ATORYCLIA [id number] [address] [place] MCV (RBC) [Entitic vol] 96.8 fL Normal 80.0-100.0 [facility] Comment on above: Order Comment: Speci men Type: BLOOD SPECIMENOrdering Facility: [facility] Address: [address] [place] [address] Performed By: #### 5 7021-8 ####[facility]ORATORYCLIA [id number] [address] [place] MEGAKARYOCYTIC FRAGMENTS 0.0 /100 WBC Normal [facility] Comment on above: Order Comment: Speci men Type: BLOOD SPECIMENOrdering Facility: [facility] Address: [address] [place] [address] Performed By: #### 5 7021-8 ####[facility]ORATORYCLIA [id number] [place] [address] [place] Metamyelocytes/100 WBC (Bld) 0.0 % Normal [facility] Comment on above: Order Comment: Speci men Type: BLOOD SPECIMENOrdering Facility: [facility] Address: [address] [place] [address] Performed By: #### 5 7021-8 ####[facility]ATORYCLIA [id number] [address] [place] MYELO% 0.0 % Normal [facility] Comment on above: Order Comment: Speci men Type: BLOOD SPECIMENOrdering Facility: [facility] Address: [address] [place] [address] Performed By: #### 5 7021-8 ####[facility]ORATORYCLIA [id number] [place] [address] [place] Neutrophils (Bld) [#/Vol] 16.08 10*3/uL High 1.45-7.50 [facility] Comment on above: Order Comment: Speci men Type: BLOOD SPECIMENOrdering Facility: [facility] Address: [address] [place] [address] Performed By: #### 5 7021-8 ####[facility]ATORYCLIA [id number] [place] [address] [place] Neutrophils/100 WBC (Bld) 89.0 % Normal [facility] Comment on above: Order Comment: Speci men Type: BLOOD SPECIMENOrdering Facility: [facility] Address: [address] [place] [address] Performed By: #### 5 7021-8 ####[facility]ATORYCLIA [id number] [address] [place] Nucleated RBC/100 WBC (Bld) [Ratio] 0.0 /100 WBC Normal [facility] Comment on above: Order Comment: Speci men Type: BLOOD SPECIMENOrdering Facility: [facility] Address: [address] [place] [address] Performed By: #### 5 7021-8 ####[facility]ORATORYCLIA [id number] [address] OF [facility] OTHER CELLS 0.0 % Normal [facility] Comment on above: Order Comment: Speci men Type: BLOOD SPECIMENOrdering Facility: [facility] Address: [address] [place] [address] Performed By: #### 5 7021-8 ####[facility]ATORYCLIA [id number] [address] PLASMA CELLS 0.0 % Normal [facility] Comment on above: Order Comment: Speci men Type: BLOOD SPECIMENOrdering Facility: [facility] Address: [address] [place] [address] Performed By: #### 5 7021-8 ####[facility]ATORYCLIA [id number] [address] [place] PLATELET ESTIMATE Adequate Normal [facility] Comment on above: Order Comment: Speci men Type: BLOOD SPECIMENOrdering Facility: [facility] Address: [address] [place] [address] Performed By: #### 5 7021-8 ####[facility]ORATORYCLIA [id number] [place] [address] [place] Platelet mean volume (Bld) [Entitic vol] 9.5 fL Normal 9.0-12.7 [facility] Comment on above: Order Comment: Speci men Type: BLOOD SPECIMENOrdering Facility: [facility] Address: [address] [place] [address] Performed By: #### 5 7021-8 ####[facility]ATORYCLIA [id number] [place] [address] [place] Platelets (Bld) [#/Vol] 177 10*3/uL Normal 150-400 [facility] Comment on above: Order Comment: Speci men Type: BLOOD SPECIMENOrdering Facility: [facility] Address: [address] [place] [address] Performed By: #### 5 7021-8 ####[facility]ATORYCLIA [id number] [place] [address] [place] Polychromasia LM Ql (Bld) Slight Normal [facility] Comment on above: Order Comment: Speci men Type: BLOOD SPECIMENOrdering Facility: [facility] Address: [address] [place] [address] Performed By: #### 5 7021-8 ####[facility]ATORYCLIA [id number] [address] [place] PROMYL% 0.0 % Normal [facility] Comment on above: Order Comment: Speci men Type: BLOOD SPECIMENOrdering Facility: [facility] Address: [address] [place] [address] Performed By: #### 5 7021-8 ####[facility]ORATORYCLIA [id number] [place] [address] [place] RBC (Bld) [#/Vol] 2.81 10*6/uL Low 4.20-6.00 [facility] Comment on above: Order Comment: Speci men Type: BLOOD SPECIMENOrdering Facility: [facility] Address: [address] [place] [address] Performed By: #### 5 7021-8 ####[facility]ORATORYCLIA [id number] [address] [place] RED CELL MORPH Reviewed: see result s of individual morphologies Normal [facility] Comment on above: Order Comment: Speci men Type: BLOOD SPECIMENOrdering Facility: [facility] Address: [address] [place] [address] Performed By: #### 5 7021-8 ####[facility]ORATORYCLIA [id number] [place] [address] [place] Variant lymphocytes/100 WBC (Bld) 0.0 % Normal [facility] Comment on above: Order Comment: Speci men Type: BLOOD SPECIMENOrdering Facility: [facility] Address: [address] [place] [address] Performed By: #### 5 7021-8 ####[facility]ORATORYCLIA [id number] [address] [place] WAM - ABS BASO 0.00 k/uL Normal <0.11 [facility] Comment on above: Order Comment: Speci men Type: BLOOD SPECIMENOrdering Facility: [facility] Address: [address] [place] [address] Performed By: #### 5 7021-8 ####[facility]ORATORYCLIA [id number] [address] WAM - ABS MONO 0.72 k/uL Normal <0.87 [facility] Comment on above: Order Comment: Speci men Type: BLOOD SPECIMENOrdering Facility: [facility] Address: [address] [place] [address] Performed By: #### 5 7021-8 ####[facility]ORATORYCLIA [id number] [address] WAM - MONO% 4.0 % Normal [facility] Comment on above: Order Comment: Speci men Type: BLOOD SPECIMENOrdering Facility: [facility] Address: [address] [place] [address] Performed By: #### 5 7021-8 ####[facility]ORATORYCLIA [id number] [address] WAM ABSOLUTE NRBC <0.01 Normal <0.01 [facility] Comment on above: Order Comment: Speci men Type: BLOOD SPECIMENOrdering Facility: [facility] Address: [address] [place] [address] Performed By: #### 5 7021-8 ####[facility]ORATORYCLIA [id number] [place] [id number] [place] WBC (Bld) [#/Vol] 18.07 10*3/uL High 3.70-11.00 [facility] Comment on above: Order Comment: Speci men Type: BLOOD SPECIMENOrdering Facility: [facility] Address: [address] [place], [place] [address] Performed By: #### 5 7021-8 ####[facility]ORATORYCLIA [id number] [place] [id number] [place] Calcium.ionized [Moles/Vol]o n 04-28-2022 Calcium.ionized (Bld) [Mass/Vol] 1.10 mmol/L Low 1.16-1.32 [facility] Comment on above: Order Comment: Speci men Type: BLOOD SPECIMENOrdering Facility: [facility] Address: [address] [place] [address] Performed By: #### 1 995-0 ####[facility]ORATORYCLIA [id number] [place] [id number] [place] Comprehensive metabolic 2000 panelon 04-28-2022 Albumin [Mass/Vol] 2.9 g/dL Low 3.2-5.0 [facility] Comment on above: Order Comment: Speci men Type: BLOOD SPECIMENOrdering Facility: [facility] Address: [address] Performed By: #### 2 4323-8, 54873-6, 277- ####[facility]ORATORYCLIA [id number] [place] [address] [place] ALP [Catalytic activity/Vol] 107 U/L Normal 45-117 [facility] Comment on above: Order Comment: Speci men Type: BLOOD SPECIMENOrdering Facility: [facility] Address: [address] [facility] Performed By: #### 2 4323-8, , 2776-08 ####[facility] LABORATORYCLIA [id number] [place] [address] [place] [Catalytic activity/Vol] 38 U/L Normal 13-61 [facility] Comment on above: Order Comment: Speci men Type: BLOOD SPECIMENOrdering Facility: [facility] Address: [address] [place] [address] Result Comment: Resu lts may be falsely depressed after the administration of Sulfasalazine and/or Sulfapyridine. Performed By: #### 2 4323-8, , 2776-08 ####[facility] LABORATORYCLIA [id number] [place] [id number] [place] [place] Anion gap [Moles/Vol] 13 mmol/L Normal 5-16 [facility] Comment on above: Order Comment: Speci men Type: BLOOD SPECIMENOrdering Facility: [facility] Address: [address] [place] [address] Performed By: #### 2 4323-8, , 2776-08 ####[facility] LABORATORYCLIA [id number] [place] [address] [place] AST [Catalytic activity/Vol] 39 U/L High 8-34 [facility] Comment on above: Order Comment: Speci men Type: BLOOD SPECIMENOrdering Facility: [facility] Address: [address] [place] [address] Result Comment: Resu lts may be falsely depressed after the administration of Sulfasalazine and/or Sulfapyridine. Performed By: #### 2 4323-8, , 2776-08 ####[facility] LABORATORYCLIA [id number] [place] [id number] [place] Bilirubin [Mass/Vol] 1.0 mg/dL Normal 0.2-1.0 [facility] Comment on above: Order Comment: Speci men Type: BLOOD SPECIMENOrdering Facility: [facility] Address: [address] [place] [address] Performed By: #### 2 4323-8, , 2776-08 ####[facility]ORATORYCLIA [id number] [place] [id number] [place] Calcium [Mass/Vol] 9.3 mg/dL Normal 8.5-10.5 [facility] Comment on above: Order Comment: Speci men Type: BLOOD SPECIMENOrdering Facility: [facility] Address: [address] [place], [place] [address] Performed By: #### 2 4323-8, , 2776-08 ####[facility]ORATORYCLIA [id number] [place] [address] [place] Chloride [Moles/Vol] 99 mmol/L Normal 98-107 [facility] Comment on above: Order Comment: Speci men Type: BLOOD SPECIMENOrdering Facility: [facility] Address: [address] [place] [address] Performed By: #### 2 4323-8, , 2776-08 ####[facility]ATORYCLIA [id number] [place] [id number] [place] CO2 [Moles/Vol] 27 mmol/L Normal 21-32 [facility] Comment on above: Order Comment: Speci men Type: BLOOD SPECIMENOrdering Facility: [facility] Address: [address] [place] [address] Performed By: #### 2 4323-8, , 2776-08 ####[facility] LABORATORYCLIA [id number] [place] [address] [place] Creatinine [Mass/Vol] 4.26 mg/dL High 0.50-1.40 [facility] Comment on above: Order Comment: Speci men Type: BLOOD SPECIMENOrdering Facility: [facility] Address: [address] [place] [address] Result Comment: Macrina ents receiving either N-Acetylcysteine (NAC) or Metamizole prior to venipuncture, may have falsely depressed results. Performed By: #### 2 4323-8, 94894-5, 27702-24 ####[facility]ATORYCLIA [id number] [place] [address] [place] ESTIMATED GLOMERULAR FILTRATION RATE 15 mL/min/1.73m??? Low >=60 [facility] Comment on above: Order Comment: Kelsi huff Type: BLOOD SPECIMENOrdering Facility: [facility] Address: [address] [place] [address] Result Comment: Caryl mated Glomerular Filtration Rate [...] actual GFR. Performed By: #### 2 4323-8, 90624-2, 27702-24 ####[facility] LABORATORYCLIA [id number] [place] [address] [place] Glucose [Mass/Vol] 112 mg/dL High 70-100 [facility] Comment on above: Order Comment: Kelsi huff Type: BLOOD SPECIMENOrdering Facility: [facility] Address: [address] [place] [address] Result Comment: The [place] [employer] (ADA) provides guidance for cutoff [...] Standards of Medical Care in Diabetes 2016, [place] [employer]. Diabetes Care. 2016.39(Suppl 1).Results may be falsely elevated after the administration of Sulfapyridine.Results may be falsely depressed after the administration of Sulfasalazine. Performed By: #### 2 4323-8, , 2776-08 ####[facility]ORATORYCLIA [id number] [place] [address] [place] Potassium [Moles/Vol] 4.0 mmol/L Normal 3.5-5.1 [facility] Comment on above: Order Comment: Speci men Type: BLOOD SPECIMENOrdering Facility: [facility] Address: [address] [place] [address] Performed By: #### 2 4323-8, , 2776-08 ####[facility] LABORATORYCLIA [id number] [place] [address] [place] Protein [Mass/Vol] 6.0 g/dL Normal 6.0-8.5 [facility] Comment on above: Order Comment: Speci men Type: BLOOD SPECIMENOrdering Facility: [facility] Address: [address] [place] [address] Performed By: #### 2 4323-8, , 2776-08 ####[facility]ATORYCLIA [id number] [place] [address] [place] Sodium [Moles/Vol] 139 mmol/L Normal 136-145 [facility] Comment on above: Order Comment: Speci men Type: BLOOD SPECIMENOrdering Facility: [facility] Address: [address] [place] [address] Performed By: #### 2 4323-8, , 2776-08 ####[facility] LABORATORYCLIA [id number] [place] [address] [place] Urea nitrogen [Mass/Vol] 46 mg/dL High 7-26 [facility] Comment on above: Order Comment: Speci men Type: BLOOD SPECIMENOrdering Facility: [facility] Address: [address] [place] [address] Performed By: #### 2 4323-8, , 2776-08 ####[facility] LABORATORYCLIA [id number] [address] Magnesium SerPl-mCncon 04-28 Magnesium [Mass/Vol] 2.3 mg/dL Normal 1.6-2.6 [facility] Comment on above: Order Comment: Kelsi huff Type: BLOOD SPECIMENOrdering Facility: [facility] Address: [address] [place], [place] [address] Performed By: #### 2 4323-8, 56314-5, 2777-1 ####[facility] LABORATORYCLIA [id number] [address] OPERATIVE NOon 04-28-2022 OPERATIVE NO Normal [facility] PT panel Coag (PPP)on 2021 INR Coag (PPP) [Relative time] 1.0 {INR} Normal 0.9-1.1 [facility] Comment on above: Order Comment: Kelsi huff Type: BLOOD SPECIMENOrdering Facility: [facility] Address: [address] [place] [address] Result Comment: Catherine min K Antagonist (VKA) Therapeutic Range: INR 2 to 3 (Target INR of 2.5)Note: For patients treated with VKA drugs, such as warfarin, the [place] [employer] 2012 Guideline recommends [...] 2.5 to 3.5 (target INR of 3).Indy GH, et al. Chest 2012, 141:7S-47SNishimura RA, et al. [facility] 2017, 70: 252-289 Performed By: #### 3 4528-0, 13798-9 ####[facility] LABORATORYCLIA [id number] [place] [id number] [facility] PT Coag (PPP) [Time] 11.1 s Normal 9.5-12.0 [facility] Comment on above: Order Comment: Speci men Type: BLOOD SPECIMENOrdering Facility: [facility] Address: [address] [place] [address] Performed By: #### 3 4528-0, 61454-7 ####[facility]ORATORYCLIA [id number] [place] [address] [place] Phosphate SerPl-mCncon 04-28 Phosphate [Mass/Vol] 4.2 mg/dL Normal 2.5-4.9 [facility] Comment on above: Order Comment: Speci men Type: BLOOD SPECIMENOrdering Facility: [facility] Address: [address] [place] [address] Result Comment: Elev ated m-protein (paraprotein) levels in the serum may be exhibited in patients with monoclonal gammopathies, causing falsely elevated inorganic phosphorus results. Performed By: #### 2 4323-8, 31818-5, 2777-1 ####[facility] LABORATORYCLIA [id number] [address] [place] TYPE + SCREENon 04-28-2022 ABO O Normal [facility] Comment on above: Order Comment: Speci men Type: BLOOD SPECIMENOrdering Facility: [facility] Address: [address] [place] [address] Performed By: #### T SCR ####[facility] BLOOD BANKCLIA [id number] [place] [address] [place] HISTORICAL AB SCR STATUS Negative Normal [facility] Comment on above: Order Comment: Speci men Type: BLOOD SPECIMENOrdering Facility: [facility] Address: [address] [place] [address] Performed By: #### T SCR ####[facility] BLOOD BANKCLIA [id number] [place] [address] [place] Rh Nom (Bld) Indeterminate Rh Normal [facility] Comment on above: Order Comment: Speci men Type: BLOOD SPECIMENOrdering Facility: [facility] Address: [facility] [place] [id number] Result Comment: Macrina ent Received Rh Pos RBCs Performed By: #### T SCR ####[facility] BLOOD BANKCLIA [id number] [place] [id number] [facility] TYPE AND SCREEN EXPIRATION 05/01/2022 23:59 Normal [facility] Comment on above: Order Comment: Speci men Type: BLOOD SPECIMENOrdering Facility: [facility] Address: [address] [place] [address] Performed By: #### T SCR ####[facility] BLOOD BANKCLIA [id number] [address] XR FLUOROSCOPYon 04-28-2022 XR FLUOROSCOPY Normal [facility] aPTT PPPon 04-28-2022 aPTT Coag (PPP) [Time] 27.9 s Normal 22.0-31.5 [facility] Comment on above: Order Comment: Samanthai men Type: BLOOD SPECIMENOrdering Facility: [facility] Address: [address] [place] [address] Result Comment: Ther apeutic Heparin Reference Range:High [...] the PTT. Performed By: #### 3 4528-0, 74320-3 ####[facility] LABORATORYCLIA [id number] [address] OF [facility] ALLIED HEALTHon 04-27-2022 [facility] ARTERIAL BLOOD GASESon 04-27 BASE DEFICIT, ARTERIAL -6 mmol/L Low -2-0 [facility] Comment on above: Order Comment: Speci men Type: ARTERIAL BLOOD SPECIMENOrdering Facility: [facility] Address: [address] [place] [address] Performed By: #### A LLBG ####[facility] RESPIRATORY THERAPYCLIA [id number] [address] Body temperature 98.78 [degF] Normal [facility] Comment on above: Order Comment: Speci men Type: ARTERIAL BLOOD SPECIMENOrdering Facility: [facility] Address: [address] [place] [address] Performed By: #### A LLBG ####[facility] RESPIRATORY THERAPYCLIA [id number] [address] [place] Calcium.ionized (Bld) [Mass/Vol] 1.16 mmol/L Normal 1.08-1.30 [facility] Comment on above: Order Comment: Speci men Type: ARTERIAL BLOOD SPECIMENOrdering Facility: [facility] Address: [address] [place] [address] Performed By: #### A LLBG ####[facility] RESPIRATORY THERAPYCLIA [id number] [address] Carboxyhemoglobin (BldA) [Mass fraction] 0.6 % Normal 0.0-2.0 [facility] Comment on above: Order Comment: Speci men Type: ARTERIAL BLOOD SPECIMENOrdering Facility: [facility] Address: [address] [place] [address] Result Comment: Carb oxyhemoglobin Reference Range for Smokers: 2.0-8.0% Performed By: #### A LLBG ####[facility] RESPIRATORY THERAPYCLIA [id number] [address] [place] CO2 (Bld) [Partial pressure] 49 mm Hg High 36-46 [facility] Comment on above: Order Comment: Speci men Type: ARTERIAL BLOOD SPECIMENOrdering Facility: [facility] Address: [address] [place] [address] Performed By: #### A LLBG ####[facility] RESPIRATORY THERAPYCLIA [id number] [address] [place] CO2 adjusted to patient's actual temperature (Bld) [Partial pressure] Normal [facility] Comment on above: Order Comment: Speci men Type: ARTERIAL BLOOD SPECIMENOrdering Facility: [facility] Address: [address] [place] [address] Performed By: #### A LLBG ####[facility] RESPIRATORY THERAPYCLIA [id number] [place] [address] [place] FIO2 30.0 % Normal [facility] Comment on above: Order Comment: Speci men Type: ARTERIAL BLOOD SPECIMENOrdering Facility: [facility] Address: [address] [place] [address] Performed By: #### A LLBG ####[facility] RESPIRATORY THERAPYCLIA [id number] [place] [address] [place] Glucose [Mass/Vol] 104 mg/dL Normal 60-105 [facility] Comment on above: Order Comment: Speci men Type: ARTERIAL BLOOD SPECIMENOrdering Facility: [facility] Address: [address] [place] [address] Performed By: #### A LLBG ####[facility] RESPIRATORY THERAPYCLIA [id number] [place] [address] [place] HCO3 (Bld) [Moles/Vol] 21 mmol/L Low 22-26 [facility] Comment on above: Order Comment: Speci men Type: ARTERIAL BLOOD SPECIMENOrdering Facility: [facility] Address: [address] [place] [address] Performed By: #### A LLBG ####[facility] RESPIRATORY THERAPYCLIA [id number] [place] [address] [place] Hemoglobin (Bld) [Mass/Vol] 9.2 g/dL Low 13.0-17.0 [facility] Comment on above: Order Comment: Speci men Type: ARTERIAL BLOOD SPECIMENOrdering Facility: [facility] Address: [address] [place] [address] Performed By: #### A LLBG ####[facility] RESPIRATORY THERAPYCLIA [id number] [address] [place] INHALED TIDAL VOLUME (ML) 500 Normal [facility] Comment on above: Order Comment: Speci men Type: ARTERIAL BLOOD SPECIMENOrdering Facility: [facility] Address: [address] [place] [address] Performed By: #### A LLBG ####[facility] RESPIRATORY THERAPYCLIA [id number] [address] [place] INSPIRATORY PRESSURE SET (CMH2O) 14 cmH2O [facility] Comment on above: Order Comment: Speci men Type: ARTERIAL BLOOD SPECIMENOrdering Facility: [facility] Address: [address] [place] [address] Performed By: #### A LLBG ####[facility] RESPIRATORY THERAPYCLIA [id number] [address] [place] Lactate [Moles/Vol] 1.3 mmol/L Normal 0.5-2.2 [facility] Comment on above: Order Comment: Speci men Type: ARTERIAL BLOOD SPECIMENOrdering Facility: [facility] Address: [address] [place] [address] Performed By: #### A LLBG ####[facility] RESPIRATORY THERAPYCLIA [id number] [place] [address] [place] Methemoglobin (Bld) [Mass fraction] 0.3 % Normal 0.0-1.5 [facility] Comment on above: Order Comment: Speci men Type: ARTERIAL BLOOD SPECIMENOrdering Facility: [facility] Address: [address] [place] [address] Performed By: #### A LLBG ####[facility] RESPIRATORY THERAPYCLIA [id number] [place] [address] [place] O2 THERAPY Positive Normal [facility] Comment on above: Order Comment: Speci men Type: ARTERIAL BLOOD SPECIMENOrdering Facility: [facility] Address: [address] [place] [address] Performed By: #### A LLBG ####[facility] RESPIRATORY THERAPYCLIA [id number] [place] [address] [place] Oxygen (Bld) [Partial pressure] 102 mm Hg High 85-95 [facility] Comment on above: Order Comment: Speci men Type: ARTERIAL BLOOD SPECIMENOrdering Facility: [facility] Address: [address] [place] [address] Performed By: #### A LLBG ####[facility] RESPIRATORY THERAPYCLIA [id number] [address] [place] Oxygen adjusted to patient's actual temperature (Bld) [Partial pressure] Normal [facility] Comment on above: Order Comment: Speci men Type: ARTERIAL BLOOD SPECIMENOrdering Facility: [facility] Address: [address] [place] [address] Performed By: #### A LLBG ####[facility] RESPIRATORY THERAPYCLIA [id number] [address] [place] Oxyhemoglobin (BldA) [Mass fraction] 96 % Normal 95-98 [facility] Comment on above: Order Comment: Speci men Type: ARTERIAL BLOOD SPECIMENOrdering Facility: [facility] Address: [address] [place] [address] Performed By: #### A LLBG ####[facility] RESPIRATORY THERAPYCLIA [id number] [address] PEEP/CPAP 8 cmH2O Normal [facility] Comment on above: Order Comment: Speci men Type: ARTERIAL BLOOD SPECIMENOrdering Facility: [facility] Address: [address] [place] [address] Performed By: #### A LLBG ####[facility] RESPIRATORY THERAPYCLIA [id number] [address] [place] pH (Bld) 7.26 [pH] Low 7.35-7.45 [facility] Comment on above: Order Comment: Speci men Type: ARTERIAL BLOOD SPECIMENOrdering Facility: [facility] Address: [address] [place] [address] Performed By: #### A LLBG ####[facility] RESPIRATORY THERAPYCLIA [id number] [address] [place] pH adjusted to patient's actual temperature (Bld) Normal [facility] Comment on above: Order Comment: Speci men Type: ARTERIAL BLOOD SPECIMENOrdering Facility: [facility] Address: [address] Performed By: #### A LLBG ####[facility] RESPIRATORY THERAPYCLIA [id number] [place] [address] [place] Potassium [Moles/Vol] 4.6 mmol/L Normal 2.5-6.0 [facility] Comment on above: Order Comment: Speci men Type: ARTERIAL BLOOD SPECIMENOrdering Facility: [facility] Address: [address] [place] [address] Performed By: #### A LLBG ####[facility] RESPIRATORY THERAPYCLIA [id number] [address] SET VENTILATOR RESPIRATORY RATE (BPM) 20 BPM Normal [facility] Comment on above: Order Comment: Speci men Type: ARTERIAL BLOOD SPECIMENOrdering Facility: [facility] Address: [address] [place], [place] [address] Performed By: #### A LLBG ####[facility] RESPIRATORY THERAPYCLIA [id number] [address] [place] Sodium [Moles/Vol] 137 mmol/L Normal 136-144 [facility] Comment on above: Order Comment: Speci men Type: ARTERIAL BLOOD SPECIMENOrdering Facility: [facility] Address: [address] [place], [place] [address] Performed By: #### A LLBG ####[facility] RESPIRATORY THERAPYCLIA [id number] [address] [place] Basic metabolic 2000 panelon 04-27-2022 Anion gap [Moles/Vol] 12 mmol/L Normal 5-16 [facility] Comment on above: Order Comment: Speci men Type: BLOOD SPECIMENOrdering Facility: [facility] Address: [address] [place] [address] Performed By: #### 2 4321-2 ####[facility] LABORATORYCLIA [id number] [place] [address] [place] Calcium [Mass/Vol] 8.9 mg/dL Normal 8.5-10.5 [facility] Comment on above: Order Comment: Speci men Type: BLOOD SPECIMENOrdering Facility: [facility] Address: [address] [place] [address] Performed By: #### 2 4321-2 ####[facility] LABORATORYCLIA [id number] [place] [address] [place] Chloride [Moles/Vol] 106 mmol/L Normal 98-107 [facility] Comment on above: Order Comment: Speci men Type: BLOOD SPECIMENOrdering Facility: [facility] Address: [address] [place] [address] Performed By: #### 2 4321-2 ####[facility] LABORATORYCLIA [id number] [place] [address] [place] CO2 [Moles/Vol] 24 mmol/L Normal 21-32 [facility] Comment on above: Order Comment: Speci men Type: BLOOD SPECIMENOrdering Facility: [facility] Address: [address] [place] [address] Performed By: #### 2 4321-2 ####[facility] LABORATORYCLIA [id number] [place] [address] [place] Creatinine [Mass/Vol] 5.21 mg/dL High 0.50-1.40 [facility] Comment on above: Order Comment: Speci men Type: BLOOD SPECIMENOrdering Facility: [facility] Address: [address] [place] [address] Result Comment: Macrina ents receiving either N-Acetylcysteine (NAC) or Metamizole prior to venipuncture, may have falsely depressed results. Performed By: #### 2 4321-2 ####[facility] LABORATORYCLIA [id number] [place] [address] [place] ESTIMATED GLOMERULAR FILTRATION RATE 12 mL/min/1.73m??? Low >=60 [facility] Comment on above: Order Comment: Speci men Type: BLOOD SPECIMENOrdering Facility: [facility] Address: [address] [place] [address] Result Comment: Caryl mated Glomerular Filtration Rate [...] actual GFR. Performed By: #### 2 4321-2 ####[facility] LABORATORYCLIA [id number] [place] [address] [place] Glucose [Mass/Vol] 98 mg/dL Normal 70-100 [facility] Comment on above: Order Comment: Kelsi huff Type: BLOOD SPECIMENOrdering Facility: [facility] Address: [address] [place], [place] [id number] Result Comment: The [place] [employer] (ADA) provides guidance for cutoff [...] Standards of Medical Care in Diabetes 2016, [place] [employer]. Diabetes Care. 2016.39(Suppl 1).Results may be falsely elevated after the administration of Sulfapyridine.Results may be falsely depressed after the administration of Sulfasalazine. Performed By: #### 2 4321-2 ####[facility] LABORATORYCLIA [id number] [place] [address] [place] Potassium [Moles/Vol] 4.9 mmol/L Normal 3.5-5.1 [facility] Comment on above: Order Comment: Kelsi huff Type: BLOOD SPECIMENOrdering Facility: [facility] Address: [address] [place] [address] Result Comment: Slig ht Hemolysis, Result may be affected. Performed By: #### 2 4321-2 ####[facility] LABORATORYCLIA [id number] [place] [id number] [place] Sodium [Moles/Vol] 142 mmol/L Normal 136-145 [facility] Comment on above: Order Comment: Speci men Type: BLOOD SPECIMENOrdering Facility: [facility] Address: [address] [place] [address] Performed By: #### 2 4321-2 ####[facility] LABORATORYCLIA [id number] [place] [address] [place] Urea nitrogen [Mass/Vol] 66 mg/dL High 7- [facility] Comment on above: Order Comment: Speci men Type: BLOOD SPECIMENOrdering Facility: [facility] Address: [address] [place] [address] Performed By: #### 2 4321-2 ####[facility] LABORATORYCLIA [id number] [place] [address] [place] CBC panel Auto (Bld)on 04-27 Erythrocyte distribution width (RBC) [Ratio] 16.6 % High 11.5-15.0 [facility] Comment on above: Order Comment: Speci men Type: BLOOD SPECIMENOrdering Facility: [facility] Address: [address] [address] Performed By: #### 5 8410-2 ####[facility] LABORATORYCLIA [id number] [address] [place] Hematocrit (Bld) [Volume fraction] 25.2 % Low 39.0-51.0 [facility] Comment on above: Order Comment: Speci men Type: BLOOD SPECIMENOrdering Facility: [facility] Address: [address] [place] [address] Performed By: #### 5 8410-2 ####[facility] LABORATORYCLIA [id number] [address] [place] Hemoglobin (Bld) [Mass/Vol] 8.2 g/dL Low 13.0-17.0 [facility] Comment on above: Order Comment: Speci men Type: BLOOD SPECIMENOrdering Facility: [facility] Address: [address] [place] [address] Performed By: #### 5 8410-2 ####[facility] LABORATORYCLIA [id number] [address] [place] MCH (RBC) [Entitic mass] 31.1 pg Normal 26.0-34.0 [facility] Comment on above: Order Comment: Speci men Type: BLOOD SPECIMENOrdering Facility: [facility] Address: [address] [place] [address] Performed By: #### 5 8410-2 ####[facility] LABORATORYCLIA [id number] [address] [place] MCHC (RBC) [Mass/Vol] 32.5 g/dL Normal 30.5-36.0 [facility] Comment on above: Order Comment: Speci men Type: BLOOD SPECIMENOrdering Facility: [facility] Address: [address] [place] [address] Performed By: #### 5 8410-2 ####[facility] LABORATORYCLIA [id number] [address] [place] MCV (RBC) [Entitic vol] 95.5 fL Normal 80.0-100.0 [facility] Comment on above: Order Comment: Speci men Type: BLOOD SPECIMENOrdering Facility: [facility] Address: [address] [place] [address] Performed By: #### 5 8410-2 ####[facility] LAB[facility]ATORYCLIA [id number] [address] Nucleated RBC (Bld) [#/Vol] 10*3/uL Normal <0.01 [facility] Comment on above: Order Comment: Speci men Type: BLOOD SPECIMENOrdering Facility: [facility] Address: [address] Performed By: #### 5 8410-2 ####[facility] LABORATORYCLIA [id number] [place] [id number] [place] Platelet mean volume (Bld) [Entitic vol] 10.0 fL Normal 9.0-12.7 [facility] Comment on above: Order Comment: Speci men Type: BLOOD SPECIMENOrdering Facility: [facility] Address: [address] [place], [place] [address] Performed By: #### 5 8410-2 ####[facility] LABORATORYCLIA [id number] [place] [address] [place] Platelets (Bld) [#/Vol] 184 10*3/uL Normal 150-400 [facility] Comment on above: Order Comment: Speci men Type: BLOOD SPECIMENOrdering Facility: [facility] Address: [address] [place] [address] Performed By: #### 5 8410-2 ####[facility] LABORATORYCLIA [id number] [place] [address] [place] RBC (Bld) [#/Vol] 2.64 10*6/uL Low 4.20-6.00 [facility] Comment on above: Order Comment: Speci men Type: BLOOD SPECIMENOrdering Facility: [facility] Address: [address] [place] [address] Performed By: #### 5 8410-2 ####[facility] LABORATORYCLIA [id number] [place] [address] [place] WBC (Bld) [#/Vol] 22.82 10*3/uL High 3.70-11.00 [facility] Comment on above: Order Comment: Speci men Type: BLOOD SPECIMENOrdering Facility: [facility] Address: [address] [place] [address] Performed By: #### 5 8410-2 ####[facility] LABORATORYCLIA [id number] [place] [address] [place] CONSULT PROGon 04-27-2022 CONSULT PROG Normal [facility] CTA CHEST (NONGATED) W IVCON on 04-27-2022 CTA CHEST (NONGATED) W IVCON Normal [facility] NT-proBNP SerPl-mCncon 04-27 Natriuretic peptide.B prohormone N-Terminal [Mass/Vol] >45698 High <125 [facility] Comment on above: Order Comment: Speci men Type: BLOOD SPECIMENOrdering Facility: [facility] Address: [address] [place] [address] Result Comment: NT-p roBNP results of less than 300 pg/mL likely rules out acute congestive heart failure with 99% predictive value.NOTE: These cutoff points are suggested for ACUTE CHF DIAGNOSIS onlyLess than 50 years Greater than 450 pg/mL50 - 75 years Greater than 900 pg/mLGreater than 75 years Greater than 1800 pg/mLNOTE NEW NORMAL RANGE Performed By: #### 3 3762-6 ####[facility]ORATORYCLIA [id number] [place] [address] [place] NUTRITIONon 04-27-2022 NUTRITION Normal [facility] XR CHEST 1V FRONTALon 2021 XR CHEST 1V FRONTAL Normal [facility] XR CHEST 1V FRONTAL Normal [facility] ARTERIAL BLOOD GASESon 04-26 BASE DEFICIT, ARTERIAL -5 mmol/L Low -2-0 [facility] Comment on above: Order Comment: Speci men Type: ARTERIAL BLOOD SPECIMENOrdering Facility: [facility] Address: [address] [place] [address] Performed By: #### A LLBG ####[facility] THERAPYCLIA [id number] [address] [place] Body temperature 98.96 [degF] Normal [facility] Comment on above: Order Comment: Speci men Type: ARTERIAL BLOOD SPECIMENOrdering Facility: [facility] Address: [address] [place] [address] Performed By: #### A LLBG ####[facility] THERAPYCLIA [id number] [address] [place] Calcium.ionized (Bld) [Mass/Vol] 1.16 mmol/L Normal 1.08-1.30 [facility] Comment on above: Order Comment: Speci men Type: ARTERIAL BLOOD SPECIMENOrdering Facility: [facility] Address: [address] [place] [address] Performed By: #### A LLBG ####[facility] THERAPYCLIA [id number] [address] [place] Carboxyhemoglobin (BldA) [Mass fraction] 0.9 % Normal 0.0-2.0 [facility] Comment on above: Order Comment: Speci men Type: ARTERIAL BLOOD SPECIMENOrdering Facility: [facility] Address: [address] [place] [address] Result Comment: Carb oxyhemoglobin Reference Range for Smokers: 2.0-8.0% Performed By: #### A LLBG ####[facility] THERAPYCLIA [id number] [address] [place] CO2 (Bld) [Partial pressure] 47 mm Hg High 36-46 [facility] Comment on above: Order Comment: Speci men Type: ARTERIAL BLOOD SPECIMENOrdering Facility: [facility] Address: [address] [place] [address] Performed By: #### A LLBG ####[facility] THERAPYCLIA [id number] [address] [place] CO2 adjusted to patient's actual temperature (Bld) [Partial pressure] Normal [facility] Comment on above: Order Comment: Speci men Type: ARTERIAL BLOOD SPECIMENOrdering Facility: [facility] Address: [address] [place] [address] Performed By: #### A LLBG ####[facility] THERAPYCLIA [id number] [address] [place] FIO2 35.0 % Normal [facility] Comment on above: Order Comment: Speci men Type: ARTERIAL BLOOD SPECIMENOrdering Facility: [facility] Address: [address] [address] Performed By: #### A LLBG ####[facility] THERAPYCLIA [id number] [place] [address] [place] Glucose [Mass/Vol] 131 mg/dL High 60-105 [facility] Comment on above: Order Comment: Speci men Type: ARTERIAL BLOOD SPECIMENOrdering Facility: [facility] Address: [address] [place] [address] Performed By: #### A LLBG ####[facility] THERAPYCLIA [id number] [place] [address] [place] HCO3 (Bld) [Moles/Vol] 22 mmol/L Normal 22-26 [facility] Comment on above: Order Comment: Speci men Type: ARTERIAL BLOOD SPECIMENOrdering Facility: [facility] Address: [address] [place] [address] Performed By: #### A LLBG ####[facility] THERAPYCLIA [id number] [address] [place] Hemoglobin (Bld) [Mass/Vol] 9.2 g/dL Low 13.0-17.0 [facility] Comment on above: Order Comment: Speci men Type: ARTERIAL BLOOD SPECIMENOrdering Facility: [facility] Address: [address] [place] [address] Performed By: #### A LLBG ####[facility] THERAPYCLIA [id number] [address] [place] INHALED TIDAL VOLUME (ML) 500 Normal [facility] Comment on above: Order Comment: Speci men Type: ARTERIAL BLOOD SPECIMENOrdering Facility: [facility] Address: [address] [place] [address] Performed By: #### A LLBG ####[facility] THERAPYCLIA [id number] [address] [place] INSPIRATORY PRESSURE SET (CMH2O) 14 cmH2O Normal [facility] Comment on above: Order Comment: Speci men Type: ARTERIAL BLOOD SPECIMENOrdering Facility: [facility] Address: [address] [address] Performed By: #### A LLBG ####[facility] THERAPYCLIA [id number] [place] [address] [place] Lactate [Moles/Vol] 1.2 mmol/L Normal 0.5-2.2 [facility] Comment on above: Order Comment: Speci men Type: ARTERIAL BLOOD SPECIMENOrdering Facility: [facility] Address: [address] [place] [address] Performed By: #### A LLBG ####[facility] THERAPYCLIA [id number] [address] [place] Methemoglobin (Bld) [Mass fraction] 0.3 % Normal 0.0-1.5 [facility] Comment on above: Order Comment: Speci men Type: ARTERIAL BLOOD SPECIMENOrdering Facility: [facility] Address: [address] [place] [address] Performed By: #### A LLBG ####[facility] THERAPYCLIA [id number] [address] [place] O2 THERAPY Positive [facility] Comment on above: Order Comment: Speci men Type: ARTERIAL BLOOD SPECIMENOrdering Facility: [facility] Address: [address] [place] [address] Performed By: #### A LLBG ####[facility] THERAPYCLIA [id number] [place] [address] [place] Oxygen (Bld) [Partial pressure] 140 mm Hg High 85-95 [facility] Comment on above: Order Comment: Speci men Type: ARTERIAL BLOOD SPECIMENOrdering Facility: [facility] Address: [address] [place] [address] Performed By: #### A LLBG ####[facility] THERAPYCLIA [id number] [address] [place] Oxygen adjusted to patient's actual temperature (Bld) [Partial pressure] [facility] Comment on above: Order Comment: Speci men Type: ARTERIAL BLOOD SPECIMENOrdering Facility: [facility] Address: [address] [place] [address] Performed By: #### A LLBG ####[facility] THERAPYCLIA [id number] [address] Oxyhemoglobin (BldA) [Mass fraction] 97 % Normal 95-98 [facility] Comment on above: Order Comment: Speci men Type: ARTERIAL BLOOD SPECIMENOrdering Facility: [facility] Address: [address] [place] [address] Performed By: #### A LLBG ####[facility] THERAPYCLIA [id number] [address] PEEP/CPAP 8 cmH2O Normal [facility] Comment on above: Order Comment: Speci men Type: ARTERIAL BLOOD SPECIMENOrdering Facility: [facility] Address: [address] [place] [address] Performed By: #### A LLBG ####[facility] THERAPYCLIA [id number] [address] [place] pH (Bld) 7.28 [pH] Low 7.35-7.45 [facility] Comment on above: Order Comment: Speci men Type: ARTERIAL BLOOD SPECIMENOrdering Facility: [facility] Address: [address] [place] [address] Performed By: #### A LLBG ####[facility] THERAPYCLIA [id number] [address] pH adjusted to patient's actual temperature (Bld) Normal [facility] Comment on above: Order Comment: Speci men Type: ARTERIAL BLOOD SPECIMENOrdering Facility: [facility] Address: [address] [place] [address] Performed By: #### A LLBG ####[facility] THERAPYCLIA [id number] [place] [address] [place] Potassium [Moles/Vol] 4.6 mmol/L Normal 2.5-6.0 [facility] Comment on above: Order Comment: Speci men Type: ARTERIAL BLOOD SPECIMENOrdering Facility: [facility] Address: [address] [place] [address] Performed By: #### A LLBG ####[facility] THERAPYCLIA [id number] [address] SET VENTILATOR RESPIRATORY RATE (BPM) 20 BPM Normal [facility] Comment on above: Order Comment: Speci men Type: ARTERIAL BLOOD SPECIMENOrdering Facility: [facility] Address: [address] [place] [address] Performed By: #### A LLBG ####[facility] THERAPYCLIA [id number] [address] [place] Sodium [Moles/Vol] 136 mmol/L Normal 136-144 [facility] Comment on above: Order Comment: Speci men Type: ARTERIAL BLOOD SPECIMENOrdering Facility: [facility] Address: [address] [place] [address] Performed By: #### A LLBG ####[facility] THERAPYCLIA [id number] [address] [place] BASE DEFICIT, ARTERIAL -6 mmol/L Low -2-0 [facility] Comment on above: Order Comment: Speci men Type: ARTERIAL BLOOD SPECIMENOrdering Facility: [facility] Address: [address] [place] [address] Performed By: #### A LLBG ####[facility] THERAPYCLIA [id number] [address] [place] Body temperature 98.6 [degF] Normal [facility] Comment on above: Order Comment: Speci men Type: ARTERIAL BLOOD SPECIMENOrdering Facility: [facility] Address: [address] [place] [address] Performed By: #### A LLBG ####[facility] THERAPYCLIA [id number] [address] [place] Calcium.ionized (Bld) [Mass/Vol] 1.19 mmol/L Normal 1.08-1.30 [facility] Comment on above: Order Comment: Speci men Type: ARTERIAL BLOOD SPECIMENOrdering Facility: [facility] Address: [address] [place] [address] Performed By: #### A LLBG ####[facility] THERAPYCLIA [id number] [address] [place] Carboxyhemoglobin (BldA) [Mass fraction] 0.7 % Normal 0.0-2.0 [facility] Comment on above: Order Comment: Speci men Type: ARTERIAL BLOOD SPECIMENOrdering Facility: [facility] Address: [address] [place] [address] Result Comment: Carb oxyhemoglobin Reference Range for Smokers: 2.0-8.0% Performed By: #### A LLBG ####[facility] THERAPYCLIA [id number] [place] [address] [place] CO2 (Bld) [Partial pressure] 56 mm Hg High 36-46 [facility] Comment on above: Order Comment: Speci men Type: ARTERIAL BLOOD SPECIMENOrdering Facility: [facility] Address: [address] [place] [address] Performed By: #### A LLBG ####[facility] THERAPYCLIA [id number] [place] [address] [place] Glucose [Mass/Vol] 136 mg/dL High 60-105 [facility] Comment on above: Order Comment: Speci men Type: ARTERIAL BLOOD SPECIMENOrdering Facility: [facility] Address: [address] [place] [address] Performed By: #### A LLBG ####[facility] THERAPYCLIA [id number] [place] [address] [place] HCO3 (Bld) [Moles/Vol] 22 mmol/L Normal 22-26 [facility] Comment on above: Order Comment: Speci men Type: ARTERIAL BLOOD SPECIMENOrdering Facility: [facility] Address: [address] [place] [address] Performed By: #### A LLBG ####[facility] THERAPYCLIA [id number] [address] [place] Hemoglobin (Bld) [Mass/Vol] 9.2 g/dL Low 13.0-17.0 [facility] Comment on above: Order Comment: Speci men Type: ARTERIAL BLOOD SPECIMENOrdering Facility: [facility] Address: [address] [place] [address] Performed By: #### A LLBG ####[facility] THERAPYCLIA [id number] [address] [place] Lactate [Moles/Vol] 1.0 mmol/L Normal 0.5-2.2 [facility] Comment on above: Order Comment: Speci men Type: ARTERIAL BLOOD SPECIMENOrdering Facility: [facility] Address: [address] [place] [address] Performed By: #### A LLBG ####[facility] THERAPYCLIA [id number] [address] [place] LITERS 2 Liters/min Normal [facility] Comment on above: Order Comment: Speci men Type: ARTERIAL BLOOD SPECIMENOrdering Facility: [facility] Address: [address] [place] [address] Performed By: #### A LLBG ####[facility] THERAPYCLIA [id number] [address] [place] Methemoglobin (Bld) [Mass fraction] 0.1 % Normal 0.0-1.5 [facility] Comment on above: Order Comment: Speci men Type: ARTERIAL BLOOD SPECIMENOrdering Facility: [facility] Address: [address] [place] [address] Performed By: #### A LLBG ####[facility] THERAPYCLIA [id number] [address] O2 THERAPY NC = Nasal Cannula Normal [facility] Comment on above: Order Comment: Speci men Type: ARTERIAL BLOOD SPECIMENOrdering Facility: [facility] Address: [address] [place] [address] Performed By: #### A LLBG ####[facility] THERAPYCLIA [id number] [place] [address] [place] Oxygen (Bld) [Partial pressure] 114 mm Hg High 85-95 [facility] Comment on above: Order Comment: Speci men Type: ARTERIAL BLOOD SPECIMENOrdering Facility: [facility] Address: [address] [place] [address] Performed By: #### A LLBG ####[facility] THERAPYCLIA [id number] [place] [address] [place] [facility] [place] Oxyhemoglobin (BldA) [Mass fraction] 97 % Normal 95-98 [facility] Comment on above: Order Comment: Speci men Type: ARTERIAL BLOOD SPECIMENOrdering Facility: [facility] Address: [address] [place] [address] Performed By: #### A LLBG ####[facility] THERAPYCLIA [id number] [place] [address] [place] pH (Bld) 7.22 [pH] Low 7.35-7.45 [facility] Comment on above: Order Comment: Speci men Type: ARTERIAL BLOOD SPECIMENOrdering Facility: [facility] Address: [address] [place] [address] Performed By: #### A LLBG ####[facility] THERAPYCLIA [id number] [place] [address] [place] Potassium [Moles/Vol] 4.6 mmol/L Normal 2.5-6.0 [facility] Comment on above: Order Comment: Speci men Type: ARTERIAL BLOOD SPECIMENOrdering Facility: [facility] Address: [address] [place] [address] Performed By: #### A LLBG ####[facility] THERAPYCLIA [id number] [place] [address] [place] Sodium [Moles/Vol] 135 mmol/L Low 136-144 [facility] Comment on above: Order Comment: Speci men Type: ARTERIAL BLOOD SPECIMENOrdering Facility: [facility] Address: [address] [place] [address] Performed By: #### A LLBG ####[facility] THERAPYCLIA [id number] [place] [id number] [place] Basic metabolic 2000 panelon 04-26-2022 Anion gap [Moles/Vol] 9 mmol/L Normal 5-16 [facility] Comment on above: Order Comment: Speci men Type: BLOOD SPECIMENOrdering Facility: [facility] Address: [address] [place], [place] [address]SHY [address] Performed By: #### 2 432-2, ####[facility] LABORATORYCLIA [id number] [place] [id number] [place] Calcium [Mass/Vol] 8.5 mg/dL Normal 8.5-10.5 [facility] Comment on above: Order Comment: Speci men Type: BLOOD SPECIMENOrdering Facility: [facility] Address: [address] [place], [place] [address]Jade [address] Performed By: #### 2 4320-09, ####[facility] LABORATORYCLIA [id number] [place] [address] [place] Chloride [Moles/Vol] 107 mmol/L Normal 98-107 [facility] Comment on above: Order Comment: Speci men Type: BLOOD SPECIMENOrdering Facility: [facility] Address: [facility] NATALIE WHITE[address] Performed By: #### 2 2, ####[facility] LABORATORYCLIA [id number] [place] [id number] [place] CO2 [Moles/Vol] 26 mmol/L Normal 21-32 [facility] Comment on above: Order Comment: Speci men Type: BLOOD SPECIMENOrdering Facility: [facility] Address: [facility] NATALIE WHITE[address] Performed By: #### 2 4320-2, ####[facility]ATORYCLIA [id number] [place] [id number] [place] Creatinine [Mass/Vol] 3.41 mg/dL High 0.50-1.40 [facility] Comment on above: Order Comment: Kelsi huff Type: BLOOD SPECIMENOrdering Facility: [facility] Address: [address] [phone] Result Comment: Macrina ents receiving either N-Acetylcysteine (NAC) or Metamizole prior to venipuncture, may have falsely depressed results. Performed By: #### 2 4321-2, 45167-6 ####[facility]ORATORYCLIA [id number] [place] [address] [place] ESTIMATED GLOMERULAR FILTRATION RATE 19 mL/min/1.73m??? Low >=60 [facility] Comment on above: Order Comment: Kelsi huff Type: BLOOD SPECIMENOrdering Facility: [facility] Address: [address] [phone] Result Comment: Caryl mated Glomerular Filtration Rate [...] actual GFR. Performed By: #### 2 4321-2, 83174-3 ####[facility]ORATORYCLIA [id number] [place] [address] [place] Glucose [Mass/Vol] 122 mg/dL High 70-100 [facility] Comment on above: Order Comment: Kelsi huff Type: BLOOD SPECIMENOrdering Facility: [facility] Address: [address] [place] [address] Result Comment: The [place] [employer] (ADA) provides guidance for cutoff [...] Standards of Medical Care in Diabetes 2016, [place] [employer]. Diabetes Care. 2016.39(Suppl 1).Results may be falsely elevated after the administration of Sulfapyridine.Results may be falsely depressed after the administration of Sulfasalazine. Performed By: #### 2 432-2, ####[facility]ORATORYCLIA [id number] [place] [address] [place] Potassium [Moles/Vol] 4.6 mmol/L Normal 3.5-5.1 [facility] Comment on above: Order Comment: Kelsi huff Type: BLOOD SPECIMENOrdering Facility: [facility] Address: [address] [place] [address] Performed By: #### 2 43208-28, ####[facility]ORATORYCLIA [id number] [address] [place] Sodium [Moles/Vol] 142 mmol/L Normal 136-145 [facility] Comment on above: Order Comment: Kelsi huff Type: BLOOD SPECIMENOrdering Facility: [facility] Address: [address] [place] [address] Performed By: #### 2 432-, ####[facility] LABORATORYCLIA [id number] [place] [address] [place] Urea nitrogen [Mass/Vol] 45 mg/dL High 7-26 [facility] Comment on above: Order Comment: Kelsi huff Type: BLOOD SPECIMENOrdering Facility: [facility] Address: [address] [place] [address] Performed By: #### 2 4322, ####[facility]ORATORYCLIA [id number] [place] [id number] [place] CASE MANAGEMon 04-26-2022 CASE MANAGEM Normal [facility] CBC W Auto Differential pane l (Bld)on 04-26-2022 Band form neutrophils/100 WBC (Bld) 11.0 % Normal [facility] Comment on above: Order Comment: Speci men Type: BLOOD SPECIMENOrdering Facility: [facility] Address: [address] [place] [address] Performed By: #### 5 7021-8 ####[facility]ATORYCLIA [id number] [place] [address] [place] Basophils/100 WBC (Bld) 0.0 % Normal [facility] Comment on above: Order Comment: Speci men Type: BLOOD SPECIMENOrdering Facility: [facility] Address: [address] [place] [address] Performed By: #### 5 7021-8 ####[facility]ORATORYCLIA [id number] [place] [address] [place] Differential cell count method Nom (Bld) Manual Normal [facility] Comment on above: Order Comment: Speci men Type: BLOOD SPECIMENOrdering Facility: [facility] Address: [address] [place] [address] Performed By: #### 5 7021-8 ####[facility]ATORYCLIA [id number] [place] [address] [place] Eosinophils (Bld) [#/Vol] 0.20 10*3/uL Normal <0.46 [facility] Comment on above: Order Comment: Speci men Type: BLOOD SPECIMENOrdering Facility: [facility] Address: [address] [place] [address] Performed By: #### 5 7021-8 ####[facility]ATORYCLIA [id number] [place] [address] [place] Eosinophils/100 WBC (Bld) 1.0 % Normal [facility] Comment on above: Order Comment: Speci men Type: BLOOD SPECIMENOrdering Facility: [facility] Address: [address] [place] [address] Performed By: #### 5 7021-8 ####[facility]ORATORYCLIA [id number] [address] [place] Erythrocyte distribution width (RBC) [Ratio] 15.9 % High 11.5-15.0 [facility] Comment on above: Order Comment: Speci men Type: BLOOD SPECIMENOrdering Facility: [facility] Address: [address] [place] [address] Performed By: #### 5 7021-8 ####[facility]ORATORYCLIA [id number] [place] [address] [place] Hematocrit (Bld) [Volume fraction] 21.7 % Low 39.0-51.0 [facility] Comment on above: Order Comment: Speci men Type: BLOOD SPECIMENOrdering Facility: [facility] Address: [address] [place] [address] Performed By: #### 5 7021-8 ####[facility]ORATORYCLIA [id number] [place] [address] [place] Hemoglobin (Bld) [Mass/Vol] 7.1 g/dL Low 13.0-17.0 [facility] Comment on above: Order Comment: Speci men Type: BLOOD SPECIMENOrdering Facility: [facility] Address: [address] [place] [address] Performed By: #### 5 7021-8 ####[facility]ORATORYCLIA [id number] [place] [address] [place] Lymphocytes (Bld) [#/Vol] 1.56 10*3/uL Normal 1.00-4.00 [facility] Comment on above: Order Comment: Speci men Type: BLOOD SPECIMENOrdering Facility: [facility] Address: [address] [place] [address] Performed By: #### 5 7021-8 ####[facility]ORATORYCLIA [id number] [address] [place] Lymphocytes/100 WBC (Bld) 8.0 % Normal [facility] Comment on above: Order Comment: Speci men Type: BLOOD SPECIMENOrdering Facility: [facility] Address: [address] [address] Performed By: #### 5 7021-8 ####[facility]ORATORYCLIA [id number] [place] [address] [place] MCH (RBC) [Entitic mass] 32.0 pg Normal 26.0-34.0 [facility] Comment on above: Order Comment: Speci men Type: BLOOD SPECIMENOrdering Facility: [facility] Address: [address] [place] [address] Performed By: #### 5 7021-8 ####[facility]ORATORYCLIA [id number] [place] [address] [place] MCHC (RBC) [Mass/Vol] 32.7 g/dL Normal 30.5-36.0 [facility] Comment on above: Order Comment: Speci men Type: BLOOD SPECIMENOrdering Facility: [facility] Address: [address] [place] [address] Performed By: #### 5 7021-8 ####[facility]ORATORYCLIA [id number] [place] [address] [place] MCV (RBC) [Entitic vol] 97.7 fL Normal 80.0-100.0 [facility] Comment on above: Order Comment: Speci men Type: BLOOD SPECIMENOrdering Facility: [facility] Address: [address] [place] [address] Performed By: #### 5 7021-8 ####[facility]ORATORYCLIA [id number] [place] [address] [place] Neutrophils (Bld) [#/Vol] 16.80 10*3/uL High 1.45-7.50 [facility] Comment on above: Order Comment: Speci men Type: BLOOD SPECIMENOrdering Facility: [facility] Address: [address] [place] [address] Performed By: #### 5 7021-8 ####[facility]ORATORYCLIA [id number] [place] [address] [place] Neutrophils/100 WBC (Bld) 75.0 % Normal [facility] Comment on above: Order Comment: Speci men Type: BLOOD SPECIMENOrdering Facility: [facility] Address: [address] [place], [place] [id number] Performed By: #### 5 7021-8 ####[facility]ORATORYCLIA [id number] [place] [address] [place] Nucleated RBC/100 WBC (Bld) [Ratio] 0.0 /100 WBC Normal [facility] Comment on above: Order Comment: Speci men Type: BLOOD SPECIMENOrdering Facility: [facility] Address: [address] [place], [place] [address] Performed By: #### 5 7021-8 ####[facility]ORATORYCLIA [id number] [place] [address] [place] PLATELET ESTIMATE Decreased Normal [facility] Comment on above: Order Comment: Speci men Type: BLOOD SPECIMENOrdering Facility: [facility] Address: [address] [place] [address] Performed By: #### 5 7021-8 ####[facility]ORATORYCLIA [id number] [place] [address] [place] Platelet mean volume (Bld) [Entitic vol] 9.9 fL Normal 9.0-12.7 [facility] Comment on above: Order Comment: Speci men Type: BLOOD SPECIMENOrdering Facility: [facility] Address: [address] [place] [address] Performed By: #### 5 7021-8 ####[facility]ATORYCLIA [id number] [place] [address] [place] Platelets (Bld) [#/Vol] 130 10*3/uL Low 150-400 [facility] Comment on above: Order Comment: Speci men Type: BLOOD SPECIMENOrdering Facility: [facility] Address: [address] [place] [address] Performed By: #### 5 7021-8 ####[facility]ORATORYCLIA [id number] [address] RBC (Bld) [#/Vol] 2.22 10*6/uL Low 4.20-6.00 [facility] Comment on above: Order Comment: Speci men Type: BLOOD SPECIMENOrdering Facility: [facility] Address: [address] [place] [address] Performed By: #### 5 7021-8 ####[facility]ORATORYCLIA [id number] [address] RED CELL MORPH Reviewed: unremarkable Normal [facility] Comment on above: Order Comment: Speci men Type: BLOOD SPECIMENOrdering Facility: [facility] Address: [address] [place] [address] Performed By: #### 5 7021-8 ####[facility]ORATORYCLIA [id number] [address] WAM - ABS BASO 0.00 k/uL Normal <0.11 [facility] Comment on above: Order Comment: Speci men Type: BLOOD SPECIMENOrdering Facility: [facility] Address: [address] [place] [address] Performed By: #### 5 7021-8 ####[facility]ORATORYCLIA [id number] [address] WAM - ABS MONO 0.98 k/uL High <0.87 [facility] Comment on above: Order Comment: Speci men Type: BLOOD SPECIMENOrdering Facility: [facility] Address: [address] [address] Performed By: #### 5 7021-8 ####[facility]ORATORYCLIA [id number] [address] WAM - MONO% 5.0 % Normal [facility] Comment on above: Order Comment: Speci men Type: BLOOD SPECIMENOrdering Facility: [facility] Address: [facility] [place] [address] Performed By: #### 5 7021-8 ####[facility]ORATORYCLIA [id number] [address] [place] WAM ABSOLUTE NRBC <0.01 Normal <0.01 [facility] Comment on above: Order Comment: Speci men Type: BLOOD SPECIMENOrdering Facility: [facility] Address: [address] [place] [address] Performed By: #### 5 7021-8 ####[facility]ORATORYCLIA [id number] [place] [address] [place] WBC (Bld) [#/Vol] 19.54 10*3/uL High 3.70-11.00 [facility] Comment on above: Order Comment: Speci men Type: BLOOD SPECIMENOrdering Facility: [facility] Address: [address] [place] [address] Performed By: #### 5 7021-8 ####[facility]ORATORYCLIA [id number] [address] [place] CONSULT PROGon 04-26-2022 CONSULT PROG Normal [facility] Calcium.ionized [Moles/Vol]o n 04-26-2022 Calcium.ionized (Bld) [Mass/Vol] 1.13 mmol/L Low 1.16-1.32 [facility] Comment on above: Order Comment: Speci men Type: BLOOD SPECIMENOrdering Facility: [facility] Address: [address] [place] [address] Performed By: #### 1 995-0 ####[facility]ORATORYCLIA [id number] [address] [place] Magnesium SerPl-mCncon 04-26 Magnesium [Mass/Vol] 2.6 mg/dL Normal 1.6-2.6 [facility] Comment on above: Order Comment: Speci men Type: BLOOD SPECIMENOrdering Facility: [facility] Address: [address] [place] [address] Performed By: #### 2 4321-2, 45994-5 ####[facility]ORATORYCLIA [id number] [place] [id number] [place] CASE MGT INIT ASSESon 2021 CASE MGT INIT ASSES Normal [facility] CONSULT PROGon 04-25-2022 CONSULT PROG Normal [facility] TROPONIN I HIGH SENSITIVITYo n 04-25-2022 Tropinin I.cardiac panel High sensitivity method 227.1 pg/mL Critically high 0.0-54.0 [facility] Comment on above: Order Comment: Speci men Type: BLOOD SPECIMENOrdering Facility: [facility] Address: [address] [place] [address] Result Comment: This assay uses different antibodies than our current assay, and assays, even by the same entry level sales consultant may recognize different regions of the antibody and cannot be used interchangeably. Expect results of this assay to run higher than the previous assay. Previous Critical within 24 hours. Critical Result(s) verified at: 21:58:33 on 04/25/2022 by: Maki Nolasco Performed By: #### H STROP ####[facility]ORATORYCLIA [id number] [address] OF [facility] Tropinin I.cardiac panel High sensitivity method 272.2 pg/mL Critically high 0.0-54.0 [facility] Comment on above: Order Comment: Speci men Type: BLOOD SPECIMENOrdering Facility: [facility] Address: [address] [place] [address] Result Comment: This assay uses different antibodies than our current assay, and assays, even by the same entry level sales consultant may recognize different regions of the antibody and cannot be used interchangeably. Expect results of this assay to run higher than the previous assay. Previous Critical within 24 hours. Critical Result(s) verified at: 16:50:47 on 04/25/2022 by: Maki Nolasco Performed By: #### H STROP ####[facility]ORATORYCLIA [id number] [place] [id number] [place] ABO/RH(D) TYPINGon 2 ABO/RH(D) TYPE Negative Normal [facility] Comment on above: Performed By: #### B ILTO, IPB, URICB, TP #### U [facility] (DEFAULT) [address] [place] [address] ALBUMINon 03-06-2022 Albumin [Mass/Vol] 4.1 g/dL Normal 3.5-5.0 [facility] Comment on above: Performed By: #### B ILTO, IPB, URICB, TP #### U [facility] (DEFAULT) [address] [place] [address] Albumin [Mass/Vol] 4.1 g/dL 3.5 - 5.0 g/dL [facility] ALCOHOL (ETHANOL),BLOODOrder ed By: Aisha Meyer on 03-06-2022 Ethanol Ql (Bld) <10 <10 mg/dL [facility] Ethanol Ql (U) Not detected [facility] ALCOHOL (ETHANOL),BLOODon Alcohol, Serum <10 Normal <10 [facility] Comment on above: Performed By: #### B ILTO, IPB, URICB, TP #### U [facility] (DEFAULT) [address] [place] [address] Ethanol [Mass/Vol] Not detected Normal [facility] Comment on above: Performed By: #### B ILTO, IPB, URICB, TP #### U [facility] (DEFAULT) [address] [place] [address] ALP ALT Hayley 03-06-2022 ALP [Catalytic activity/Vol] 140 U/L High 32-126 [facility] Comment on above: Performed By: #### B ILTO, IPB, URICB, TP #### U [facility] (DEFAULT) [address] [place] [address] 68466 ALT [Catalytic activity/Vol] 15 U/L Normal 10-52 [facility] Comment on above: Performed By: #### B ILTO, IPB, URICB, TP #### [facility] (DEFAULT) [address] [place] [address] 94267 AST [Catalytic activity/Vol] 20 U/L Normal 10-39 [facility] Comment on above: Performed By: #### B ILTO, IPB, URICB, TP #### [facility] (DEFAULT) [address] [place] [address] ALP [Catalytic activity/Vol] 140 U/L High 32 - 126 U/L [facility] ALT [Catalytic activity/Vol] 15 U/L 10 - 52 U/L [facility] AST [Catalytic activity/Vol] 20 U/L 10 - 39 U/L [facility] BILIRUBIN TOTALon 03-06-2022 Bilirubin [Mass/Vol] 0.6 mg/dL Normal <1.5 [facility] Comment on above: Performed By: #### B ILTO, IPB, URICB, TP #### [place] [facility] (DEFAULT) [address] [place] [address] Bilirubin [Mass/Vol] 0.6 mg/dL <1.5 [facility] C-PEPTIDEon 03-06-2022 C-Peptide 6.1 ng/mL High 0.2-2.7 [facility] Comment on above: Performed By: #### B ILTO, IPB, URICB, TP #### U [facility] (DEFAULT) [address] [place] [address] CALCIUMon 03-06-2022 Calcium [Mass/Vol] 9.6 mg/dL Normal 8.6-10.5 [facility] Comment on above: Performed By: #### B ILTO, IPB, URICB, TP #### [facility] (DEFAULT) [address] [place] [address] Calcium [Mass/Vol] 9.6 mg/dL 8.6 - 10. 5 mg/dL [facility] CBC AND ELECTRONIC DIFFon Basophils (Bld) [#/Vol] 10*3/uL Normal 0.00-0.09 [facility] Comment on above: Performed By: #### B ILTO, IPB, URICB, TP #### [facility] (DEFAULT) [address] [place] [address]56[address] Basophils/100 WBC (Bld) 0.3 % Normal [facility] Comment on above: Performed By: #### B ILTO, IPB, URICB, TP #### U [facility] (DEFAULT) [address] [place] [address] DIFF STATUS Electronic Differential Normal [facility] Comment on above: Performed By: #### B ILTO, IPB, URICB, TP #### U [facility] (DEFAULT) [address] [place] [address] 51884 Eosinophils (Bld) [#/Vol] 0.14 10*3/uL Normal 0.00-0.48 [facility] Comment on above: Performed By: #### B ILTO, IPB, URICB, TP #### [place] [facility] (DEFAULT) [address] [place] [address] Eosinophils/100 WBC (Bld) 2.2 % Normal [facility] Comment on above: Performed By: #### B ILTO, IPB, URICB, TP #### [place] [facility] (DEFAULT) [address] [place] [address]6098 Hematocrit (Bld) [Volume fraction] 32.6 % Low 39.6-48.8 [facility] Comment on above: Performed By: #### B ILTO, IPB, URICB, TP #### [facility] (DEFAULT) [address] [place] [address]57[address] Hemoglobin (Bld) [Mass/Vol] 10.7 g/dL Low 13.4-16.8 [facility] Comment on above: Performed By: #### B ILTO, IPB, URICB, TP #### [facility] (DEFAULT) [address] [place] [address] 98[address] Immature Grans % 0.3 % Normal [facility] Comment on above: Performed By: #### B ILTO, IPB, URICB, TP #### [facility] (DEFAULT) [address] [place] [address] 18877 Immature Grans Absolute <0.04 Normal <=0.07 [facility] Comment on above: Performed By: #### B ILTO, IPB, URICB, TP #### [facility] (DEFAULT) [address] [place] [address] 86962 Lymphocytes (Bld) [#/Vol] 0.88 10*3/uL Normal 0.83-3.57 [facility] Comment on above: Performed By: #### B ILTO, IPB, URICB, TP #### U [facility] (DEFAULT) [address] [place] [address] 49384 Lymphocytes/100 WBC (Bld) 13.8 % Normal [facility] Comment on above: Performed By: #### B ILTO, IPB, URICB, TP #### [facility] (DEFAULT) [address] [place] [address] 46298 MCV (RBC) [Entitic vol] 95.9 fL High 79.0-94.5 [facility] Comment on above: Performed By: #### B ILTO, IPB, URICB, TP #### [facility] (DEFAULT) [address] [place] [address] 81864 Mean Cell Hgb 31.5 pg Normal 26.1-33.3 [facility] Comment on above: Performed By: #### B ILTO, IPB, URICB, TP #### [facility] (DEFAULT) [address] [place] [address] 23332 Mean Cell Hgb Conc 32.8 g/dL Normal 31.9-36.5 [facility] Comment on above: Performed By: #### B ILTO, IPB, URICB, TP #### U [facility] (DEFAULT) [address] [place] [address] 80210 Monocytes (Bld) [#/Vol] 0.62 10*3/uL Normal 0.24-0.93 [facility] Comment on above: Performed By: #### B ILTO, IPB, URICB, TP #### [facility] (DEFAULT) [address] [place] [address] 31221 Monocytes/100 WBC (Bld) 9.7 % Normal [facility] Comment on above: Performed By: #### B ILTO, IPB, URICB, TP #### [facility] (DEFAULT) [address] [place] [address] 91039 Nucleated RBC 0.0 /100 WBC Normal <=0.2 [facility] Comment on above: Performed By: #### B ILTO, IPB, URICB, TP #### [facility] (DEFAULT) [address] [place] [address] 04964 Platelet mean volume (Bld) [Entitic vol] 9.7 fL Normal 8.7-12.3 [facility] Comment on above: Performed By: #### B ILTO, IPB, URICB, TP #### [place] [facility] (DEFAULT) [address] [place] [address] 99872 Platelets (Bld) [#/Vol] 192 10*3/uL Normal 146-337 [facility] Comment on above: Performed By: #### B ILTO, IPB, URICB, TP #### [place] [facility] (DEFAULT) [address] [place] [address] [id number] RBC (Bld) [#/Vol] 3.40 10*6/uL Low 4.38-5.83 [facility] Comment on above: Performed By: #### B ILTO, IPB, URICB, TP #### [facility] (DEFAULT) [address] [address] RBC Distribution 14.5 % High 10.9-14.3 [facility] Comment on above: Performed By: #### B ILTO, IPB, URICB, TP #### [facility] (DEFAULT) [address] [place] [address] 15786 Segs + Bands Auto 73.7 % Normal [facility] Comment on above: Performed By: #### B ILTO, IPB, URICB, TP #### [facility] (DEFAULT) [address] [place] [address] 27473 Segs + Bands,Absolute Auto 4.69 K/uL Normal 1.57-6.19 [facility] Comment on above: Performed By: #### B ILTO, IPB, URICB, TP #### [facility] (DEFAULT) [address] [place] [address] 76285 WBC (Bld) [#/Vol] 6.37 10*3/uL Normal 3.73-10.10 [facility] Comment on above: Performed By: #### B ILTO, IPB, URICB, TP #### [facility] (DEFAULT) [address] [place] [address] 79358 Basophils (Bld) [#/Vol] 10*3/uL 0.00 - 0.09 K/uL [facility] Basophils/100 WBC (Bld) 0.3 % [facility] Differential cell count method Nom (Bld) Electronic Differential [facility] Eosinophils (Bld) [#/Vol] 0.14 10*3/uL 0.00 - 0.48 K/uL [facility] Eosinophils/100 WBC (Bld) 2.2 % [facility] Erythrocyte distribution width (RBC) [Ratio] 14.5 % High 10.9 - 14.3 % [facility] Hematocrit (Bld) [Volume fraction] 32.6 % Low 39.6 - 48.8 % [facility] Hemoglobin (Bld) [Mass/Vol] 10.7 g/dL Low 13.4 - 16.8 g/dL [facility] Immature granulocytes (Bld) [#/Vol] 10*3/uL <=0.07 K/uL [facility] Immature granulocytes/100 WBC (Bld) 0.3 % [facility] Interpretation and review of laboratory results Abnormal [facility] Lymphocytes (Bld) [#/Vol] 0.88 10*3/uL 0.83 - 3.57 K/uL [facility] Lymphocytes/100 WBC (Bld) 13.8 % [facility] MCH (RBC) [Entitic mass] 31.5 pg 26.1 - 33.3 pg [facility] MCHC (RBC) [Mass/Vol] 32.8 g/dL 31.9 - 36.5 g/dL [facility] MCV (RBC) [Entitic vol] 95.9 fL High 79.0 - 94.5 fL [facility] Monocytes (Bld) [#/Vol] 0.62 10*3/uL 0.24 - 0.93 K/uL [facility] Monocytes/100 WBC (Bld) 9.7 % [facility] Neutrophils (Bld) [#/Vol] 4.69 10*3/uL 1.57 - 6.19 K/uL [facility] Nucleated RBC/100 WBC (Bld) [Ratio] 0.0 % <=0.2 /100 WBC [facility] Platelet mean volume (Bld) [Entitic vol] 9.7 fL 8.7 - 12.3 fL [facility] Platelets (Bld) [#/Vol] 192 10*3/uL 146 - 337 K/uL [facility] RBC (Bld) [#/Vol] 3.40 10*6/uL Low [facility] Segmented neutrophils/100 WBC (Bld) 73.7 % [facility] WBC (Bld) [#/Vol] 6.37 10*3/uL 3.73 - 10. 10 K/uL [facility] CHEM 7 (LYTES,BUN,CREA,GLUC) on 03-06-2022 Anion gap [Moles/Vol] 14 mmol/L Normal 7-17 [facility] Comment on above: Performed By: #### B ILTO, IPB, URICB, TP #### [facility] (DEFAULT) [address] [place] [address] 29825 Chloride [Moles/Vol] 98 mmol/L Normal 98-108 [facility] Comment on above: Performed By: #### B ILTO, IPB, URICB, TP #### [facility] (DEFAULT) [address] [place] [address] 27810 CO2 [Moles/Vol] 33 mmol/L High 21-31 [facility] Comment on above: Performed By: #### B ILTO, IPB, URICB, TP #### [facility] (DEFAULT) [address] [place] [address] 19473 Creatinine [Mass/Vol] 5.09 mg/dL High 0.70-1.30 [facility] Comment on above: Performed By: #### B ILTO, IPB, URICB, TP #### [facility] (DEFAULT) [address] [place] [address] 11155 GFR/1.73 sq M.predicted among non-blacks MDRD (S/P/Bld) [Vol rate/Area] 12 mL/min/{1.73_m2} Low >=60 [facility] Comment on above: Result Comment: Repo rted eGFR is based on the CKD-EPI 2020 equation using creatinine, age, and sex. Performed By: #### B ILTO, IPB, URICB, TP #### [facility] (DEFAULT) [address] [place] [address] 55290 Glucose [Mass/Vol] 118 mg/dL High 70-99 [facility] Comment on above: Performed By: #### B ILTO, IPB, URICB, TP #### [facility] (DEFAULT) [address] [place] [address] 03793 Osmolality [Osmolality] 308 mosm/kg High 278-305 [facility] Comment on above: Performed By: #### B ILTO, IPB, URICB, TP #### [facility] (DEFAULT) [address] [place] [address] 94879 Potassium [Moles/Vol] 4.8 mmol/L Normal 3.5-5.0 [facility] Comment on above: Performed By: #### B ILTO, IPB, URICB, TP #### [facility] (DEFAULT) [address] [place] [address] Sodium [Moles/Vol] 140 mmol/L Normal 135-145 [facility] Comment on above: Performed By: #### B ILTO, IPB, URICB, TP #### [facility] (DEFAULT) [address] [place] [address] Urea nitrogen [Mass/Vol] 48 mg/dL High 7-25 [facility] Comment on above: Performed By: #### B ILTO, IPB, URICB, TP #### [facility] (DEFAULT) [address] [place] [address] Urea nitrogen/Creatinine [Mass ratio] 9 mg/mg Normal [facility] Comment on above: Performed By: #### B ILTO, IPB, URICB, TP #### [facility] (DEFAULT) [address] [place] [address] 53567 Anion gap [Moles/Vol] 14 mmol/L 7 - 17 mmol/L [facility] Chloride [Moles/Vol] 98 mmol/L 98 - 10 8 mmol/L [facility] CO2 [Moles/Vol] 33 mmol/L High 21 - 31 mmol/L [facility] Creatinine [Mass/Vol] 5.09 mg/dL High 0.70 - 1.30 mg/dL [facility] GFR/1.73 sq M.predicted CKD-EPI (S/P/Bld) [Vol rate/Area] 12 Low >=60 mL/min/1.73m 2 [facility] Comment on above: Reported eGFR is bas ed on the CKD-EPI 2020 equation using creatinine, age, and sex. Glucose [Mass/Vol] 118 mg/dL High 70 - 99 mg/dL [facility] Osmolality Calc [Osmolality] 308 High [facility] Potassium [Moles/Vol] 4.8 mmol/L 3.5 - 5.0 mmol/L [facility] Sodium [Moles/Vol] 140 mmol/L 135 - 145 mmol/L [facility] Urea nitrogen [Mass/Vol] 48 mg/dL High 7 - 25 mg/dL [facility] Urea nitrogen/Creatinine [Mass ratio] 9 mg/mg [facility] CMV IGG ABon 03-06-2022 CMV IgG Antibody Positive Abnormal Negative [facility] Comment on above: Performed By: #### B ILTO, IPB, URICB, TP #### [facility] (DEFAULT) [address] [place] [address] 53470 EBV VCA IGG ABon 03-06-2022 EBV VCA IgG Antibody Positive Abnormal Negative [facility] Comment on above: Performed By: #### H SVM, HSVG12, EBVG, VZISB #### [facility] (DEFAULT) [address] [place] [address] GGTon 03-06-2022 Gamma glutamyl transferase [Catalytic activity/Vol] 13 U/L Normal 8-64 [facility] Comment on above: Performed By: #### B ILTO, IPB, URICB, TP #### [facility] (DEFAULT) [address] [place] [address] Gamma glutamyl transferase [Catalytic activity/Vol] 13 U/L 8 - 64 U/L [facility] HBV core IgG+IgM Ql (S)on Interpretation and review of laboratory results Normal [facility] HEMOGLOBIN A1Con 03-06-2022 Glucose [Mass/Vol] 137 mg/dL Normal [facility] Comment on above: Performed By: #### A 1CB #### [facility] (DEFAULT) [address] [place] [address] 17578 HbA1c (Bld) [Mass fraction] 6.4 % High 4.7-5.6 [facility] Comment on above: Performed By: #### A 1CB #### [facility] (DEFAULT) [address] [place] [address] HEMOGLOBIN [id number] By: Lisandro Heart on 03-06-2022 Average glucose Estimated from glycated hemoglobin (Bld) [Mass/Vol] 137 mg/dL [facility] HbA1c (Bld) [Mass fraction] 6.4 % High 4.7 - 5.6 % [facility] Interpretation and review of laboratory results Abnormal [facility] HEP B CORE AB,TOTAL(IGG+IGM) on 03-06-2022 HBV core IgG+IgM Ql (S) Negative Negative [facility] Hep B Core Ab,Total (IgG+IgM) Negative Normal Negative [facility] Comment on above: Performed By: #### B REGAN MENA URICLeslye, TP #### [facility] (DEFAULT) [address] [place] [address] 70999 HEPATITIS B SURFACE ANTIBODY on 03-06-2022 HBV surface Ab IA Ql (S) Negative Negative [facility] Interpretation and review of laboratory results Normal [facility] Hep B Surface Ab Negative Normal Negative [facility] Comment on above: Performed By: #### B REGAN MENA, URICLeslye, TP #### [facility] (DEFAULT) [address] [place] [address] 40990 HEPATITIS B SURFACE ANTIGENO rdered By: Edelmira English on 03-06-2022 HBV surface Ag Ql (S) Negative Negative [facility] Interpretation and review of laboratory results Normal [facility] HEPATITIS B SURFACE ANTIGENo n 03-06-2022 Hepatitis B Surface Ag Negative Normal Negative [facility] Comment on above: Performed By: #### B REGAN MENA, URICB, TP #### [facility] (DEFAULT) [address] [place] [address] HEPATITIS C ANTIBODYon 03-06 HCV Ab Ql (S) Negative Negative [facility] Interpretation and review of laboratory results Normal [facility] Hepatitis C Antibody Negative Normal Negative [facility] Comment on above: Performed By: #### B ILTO, IPB, URICB, TP #### [facility] (DEFAULT) [address] [place] [address] 63028 HIV 1 AND 2 ANTIBODIESon HIV 1+2 Ab+HIV1 p24 Ag IA Ql Non-Reactive Non Reactive [facility] HIV-1/HIV-2 Ab With p24 Antigen Non-Reactive Normal Non Reactive [facility] Comment on above: Performed By: #### B ILTO, IPB, URICB, TP #### [facility] (DEFAULT) [address] [place] [address] 83141 HIV 1+2 Ab+HIV1 p24 Ag IA Ql on 03-06-2022 Interpretation and review of laboratory results Normal [facility] HLA TYPING (SOLID ORGAN)on 0 03-06-2022 A 1,1 Normal [facility] Comment on above: Performed By: #### B ILTO, IPB, URICB, TP #### [facility] (DEFAULT) [address] [place] [address] 83352 B 8,27 [facility] Comment on above: Performed By: #### B ILTO, IPB, URICB, TP #### [facility] (DEFAULT) [address] [place] [address] 19504 BW 6,4 [facility] Comment on above: Performed By: #### B ILTO, IPB, URICB, TP #### [facility] (DEFAULT) [address] [place] [address] 15648 C 2,7 [facility] Comment on above: Performed By: #### B ILTO, IPB, URICB, TP #### [facility] (DEFAULT) [address] [place] [address] 54945 DPB1* DPB11 - [facility] Comment on above: Performed By: #### B ILTO, IPB, URICB, TP #### [facility] (DEFAULT) [address] [place] [address] 40297 DPB1*DPB1A 03:01 [facility] Comment on above: Performed By: #### B ILTO, IPB, URICB, TP #### [facility] (DEFAULT) [address] [place] [address] 51545 DQA1* 02 [facility] Comment on above: Performed By: #### B ILTO, IPB, URICB, TP #### [facility] (DEFAULT) [address] [place] [address] 05247 DQA1*DQA11 05 [facility] Comment on above: Performed By: #### B ILTO, IPB, URICB, TP #### [facility] (DEFAULT) [address] [place] [address] 67520 DQB1 2,8 [facility] Comment on above: Performed By: #### B ILTO, IPB, URICB, TP #### [facility] (DEFAULT) [address] [place] [address] 18447 DQB1* 02 [facility] Comment on above: Performed By: #### B ILTO, IPB, URICB, TP #### [facility] (DEFAULT) [address] [place] [address] 00621 DQB1* - DQB11 03 [facility] Comment on above: Performed By: #### B ILTO, IPB, URICB, TP #### [facility] (DEFAULT) [address] [place] [address] 17,7 [facility] Comment on above: Performed By: #### B ILTO, IPB, URICB, TP #### [facility] (DEFAULT) [address] [place] [address] 30650 DR51,52,53 52,53 [facility] Comment on above: Performed By: #### B ILTO, IPB, URICB, TP #### [facility] (DEFAULT) [address] [place] [address] 15543 DRB1* 03 [facility] Comment on above: Performed By: #### B ILTO, IPB, URICB, TP #### [facility] (DEFAULT) [address] [place] [address] DRB1* - DRB11 07 [facility] Comment on above: Performed By: #### B ILTO, IPB, URICB, TP #### [facility] (DEFAULT) [address] [place] [address] 74600 DRB3* 01 [facility] Comment on above: Performed By: #### B ILTO, IPB, URICB, TP #### [facility] (DEFAULT) [address] [place] [address] 05236 DRB4* 01 [facility] Comment on above: Performed By: #### B ILTO, IPB, URICB, TP #### [facility] (DEFAULT) [address] [place] [address] 28688 HLA A* 01 [facility] Comment on above: Performed By: #### B ILTO, IPB, URICB, TP #### [facility] (DEFAULT) [address] [place] [address] 69752 HLA A* - HLAAA 01 [facility] Comment on above: Performed By: #### B ILTO, IPB, URICB, TP #### [facility] (DEFAULT) [address] [place] [address] 36250 HLA B* 08 [facility] Comment on above: Performed By: #### B ILTO, IPB, URICB, TP #### [facility] (DEFAULT) [address] [place] [address] 27723 HLA B* - HLABBB 27 [facility] Comment on above: Performed By: #### B ILTO, IPB, URICB, TP #### [facility] (DEFAULT) [address] [place] [address] 42790 HLA C* 02 Normal [facility] Comment on above: Performed By: #### B ILTO, IPB, URICB, TP #### [facility] (DEFAULT) [address] [place] [address] HLA C* - HLACC 07 Normal [facility] Comment on above: Performed By: #### B ILTO, IPB, URICB, TP #### [facility] (DEFAULT) [address] [place] [address] 47518 HLA INTERPRETATION Normal [facility] Comment on above: Result Comment: LIST [...] need for FDA approval.Testing performed by the [facility] Clinical Histocompatibility [facility]. [facility] number: [id number]. CLIA number: [id number], Director: Robbin Neff, PhD, D(YANI). Performed By: #### B ILTO, IPB, URICB, TP #### [facility] (DEFAULT) [address] [place] [address] 54868 HSV 1 AND 2 IGG ANTIBODYon 0 03-06-2022 HSV 1 IgG Antibody Positive Abnormal Negative [facility] Comment on above: Performed By: #### H SVM, HSVG12, EBVG, VZISB #### [facility] (DEFAULT) [address] [place] [address] 17413 HSV 2 IgG Antibody Negative Normal Negative [facility] Comment on above: Performed By: #### H SVM, HSVG12, EBVG, VZISB #### [facility] (DEFAULT) [address] [place] [address] 08355 HSV IGM ANTIBODYon 2 HSV I/II IgM Antibody Negative Normal Negative [facility] Comment on above: Performed By: #### H SVM, HSVG12, EBVG, VZISB #### [facility] (DEFAULT) [address] [place] [address] 73602 MAGNESIUMon 03-06-2022 Magnesium [Mass/Vol] 2.0 mg/dL Normal 1.6-2.6 [facility] Comment on above: Performed By: #### B ILTO, IPB, URICB, TP #### [facility] (DEFAULT) [address] [place] [address] 76212 Magnesium [Mass/Vol] 2.0 mg/dL 1.6 - 2 .6 mg/dL [facility] No Panel Informationon 03-06 ABO/RH(D) TYPE Negative [facility] Interpretation and review of laboratory results Normal [facility] Interpretation and review of laboratory results Abnormal [facility] Interpretation and review of laboratory results Normal [facility] OSMOLALITYon 03-06-2022 Osmolality [Osmolality] 312 mosm/kg High 278-305 [facility] Comment on above: Performed By: #### B ILTO, IPB, URICB, TP #### [facility] (DEFAULT) [address] [place] [address] 19104 OSMOLALITYOrdered By: Staci beck on 03-06-2022 Interpretation and review of laboratory results Abnormal [facility] Osmolality [Osmolality] 312 mosm/kg High [facility] PHOSPHATE, INORGANICon 03-06 Phosphorous 4.0 mg/dL Normal 2.2-4.6 [facility] Comment on above: Performed By: #### B ILTO, IPB, URICB, TP #### [facility] (DEFAULT) [address] [place] [address] 26021 Phosphate [Mass/Vol] 4.0 mg/dL 2.2 - 4 .6 mg/dL [facility] PROTEIN TOTALon 03-06-2022 Protein [Mass/Vol] 7.2 g/dL Normal 6.4-8.3 [facility] Comment on above: Performed By: #### B ILTO, IPB, URICB, TP #### [facility] (DEFAULT) [address] [place] [address] 27984 Protein [Mass/Vol] 7.2 g/dL 6.4 - 8.3 g/dL [facility] PT,INR,PTTon 03-06-2022 aPTT Coag (Bld) [Time] 30.4 s Normal 24.0-34.3 [facility] Comment on above: Performed By: #### B ILTO, IPB, URICB, TP #### [facility] (DEFAULT) [address] [place] [address] 05435 INR Coag (PPP) [Relative time] 1.1 {INR} Normal 0.9-1.1 [facility] Comment on above: Performed By: #### B ILTO, IPB, URICB, TP #### [facility] (DEFAULT) [address] [place] [address] 20825 PT Coag (PPP) [Time] 13.8 s Normal 11.9-14.2 [facility] Comment on above: Performed By: #### B ILTO, IPB, URICB, TP #### [facility] (DEFAULT) [address] [place] [address] aPTT Coag (PPP) [Time] 30.4 s [facility] INR Coag (Bld) [Relative time] 1.1 {INR} [facility] Interpretation and review of laboratory results Normal [facility] PT Coag (PPP) [Time] 13.8 s [facility] PTH INTACTon 03-06-2022 Interpretation and review of laboratory results Abnormal [facility] Parathyrin.intact [Mass/Vol] 290.0 pg/mL High 14.0 - 72.0 pg/mL [facility] Intact PTH 290.0 pg/mL High 14.0-72.0 [facility] Comment on above: Performed By: #### B ILTO, IPB, URICB, TP #### [facility] (DEFAULT) [address] [place] [address] TOXICOLOGY DRUG SCREEN, SERU MOrdered By: Maria Carvajal on 03-06-2022 Barbiturates Ql (U) Negative Cutoff: 1000 ng/mL [facility] Drugs of abuse panel Screen (Bld) Negative Negative [facility] Interpretation and review of laboratory results Normal [facility] For Medical Purposes Only. Nonforensic screen results are considered presumptive and no confirmatory testing will follow. Drugs are detected by immunoassay or Liquid Chromatography Mass Spectrometry (LC-MS/MS). The LC-MS/MS test was developed and its performance characteristics determined by the Toxicology Laboratory at [facility]. It has not been cleared or [...] Tramadol(50), Trazodone(25), Triazolam(100), Trifluoperazine (100),Venlafaxine(50), Verapamil(100), Zolpidem(200) [facility] TOXICOLOGY DRUG SCREEN, SERU 03-06-2022 Barbiturates Negative Normal Cutoff: 1000 ng/mL [facility] Comment on above: Order Comment: For M edical Purposes Only. Nonforensic screen results are considered presumptive and no confirmatory testing will follow. Drugs are detected by immunoassay or Liquid Chromatography Mass Spectrometry (LC-MS/MS). The LC-MS/MS test was developed and its performance characteristics determined by the Toxicology Laboratory at [facility]. It has not been cleared or [...] Alphahydrozyalprazolam(200), Alprazolam(50), Amitriptyline(50), Amphetamine(250), Atenolol(500), Benzoylecgonine(50), Buprenorphine(100), Bupropion(25),Caffeine(79560),Chlordiazepoxide(50), Chlorpheniramine(100), Chlorpromazine(50), Citalopram(100), Clonazepam(200), Cocaine(25),Codeine(200), Cotinine(500),Desipramine(50), Desmethyldoxepin(100), Dextromethorphan(100),Diazepam(100),Dihydrocodeine(100),Diltazem (50),Diphenhydramine(100),Doxepin(100),EDDP/methadone(100), Ephedrine/Pseudoephedrine(100),Fentanyl(25),Flunitrazepam(100),F luoxetine(200), Flurazepam(50),Gabapentin(1500), Haloperidol(25), Hydrocodone(100), Hydromorphone(200), Imipramine(50), Ketamine(25), Lidocaine(25),Lorazepam(100), Lysergide(LSD)(25),Maprotiline(200),MDA(250),MDMA(250),Meperidin e(50),Midazolam (200),Methadone(50), Methamphetamine(500), Methylphenidate(50), Metoprolol(50), Morphine(200),Nalbuphine(50), Naloxone(200), Norbuprenorphine(300), Nordiazepam(100), Norfentanyl(50),Noroxycodone (100), Norpropoxyphene(50), Nortriptyline(50),Olanzapine(200),Oxazepam(200),Oxycodone(100),O xymorphone(200), Phencyclidine(PCP)(25), Pheniramine(25), Pregabalin(1500), Promethazine(50), Propoxyphene(100), Propanolol(50), Quetiapine(25), Quinidine(500), Ranitidine(500), Risperidone(100), Sertraline(50),Temazepam(100), Thioridazine(100), Tramadol(50), Trazodone(25), Triazolam(100), Trifluoperazine (100),Venlafaxine(50), Verapamil(100), Zolpidem(200) Performed By: #### S ERDR #### [facility] ([facility]) [address] [address] Drugs Detected Negative Normal Negative [facility] Comment on above: Order Comment: For M edical Purposes Only. Nonforensic screen results are considered presumptive and no confirmatory testing will follow. Drugs are detected by immunoassay or Liquid Chromatography Mass Spectrometry (LC-MS/MS). The LC-MS/MS test was developed and its performance characteristics determined by the Toxicology Laboratory at [facility]. It has not been cleared or [...] Alphahydrozyalprazolam(200), Alprazolam(50), Amitriptyline(50), Amphetamine(250), Atenolol(500), Benzoylecgonine(50), Buprenorphine(100), Bupropion(25),Caffeine(11385),Chlordiazepoxide(50), Chlorpheniramine(100), Chlorpromazine(50), Citalopram(100), Clonazepam(200), Cocaine(25),Codeine(200), Cotinine(500),Desipramine(50), Desmethyldoxepin(100), Dextromethorphan(100),Diazepam(100),Dihydrocodeine(100),Diltazem (50),Diphenhydramine(100),Doxepin(100),EDDP/methadone(100), Ephedrine/Pseudoephedrine(100),Fentanyl(25),Flunitrazepam(100),F luoxetine(200), Flurazepam(50),Gabapentin(1500), Haloperidol(25), Hydrocodone(100), Hydromorphone(200), Imipramine(50), Ketamine(25), Lidocaine(25),Lorazepam(100), Lysergide(LSD)(25),Maprotiline(200),MDA(250),MDMA(250),Meperidin e(50),Midazolam (200),Methadone(50), Methamphetamine(500), Methylphenidate(50), Metoprolol(50), Morphine(200),Nalbuphine(50), Naloxone(200), Norbuprenorphine(300), Nordiazepam(100), Norfentanyl(50),Noroxycodone (100), Norpropoxyphene(50), Nortriptyline(50),Olanzapine(200),Oxazepam(200),Oxycodone(100),O xymorphone(200), Phencyclidine(PCP)(25), Pheniramine(25), Pregabalin(1500), Promethazine(50), Propoxyphene(100), Propanolol(50), Quetiapine(25), Quinidine(500), Ranitidine(500), Risperidone(100), Sertraline(50),Temazepam(100), Thioridazine(100), Tramadol(50), Trazodone(25), Triazolam(100), Trifluoperazine (100),Venlafaxine(50), Verapamil(100), Zolpidem(200) Performed By: #### S ERDRG #### [facility] (DEFAULT) [address] [place] [address] TYPE AND SCREENon 03-06-2022 ABO/RH(D) TYPE Negative Normal [facility] Comment on above: Performed By: #### B ILTO, IPB, URICB, TP #### [facility] (DEFAULT) [address] [place] [address] URIC ACIDon 03-06-2022 Urate [Mass/Vol] 5.6 mg/dL Normal 3.5-7.0 [facility] Comment on above: Performed By: #### B ILTO, IPB, URICB, TP #### [facility] (DEFAULT) [address] [place] [address] Urate [Mass/Vol] 5.6 mg/dL 3.5 - 7.0 mg/dL [facility] VARICELLA IGG AB (IMM STATUS )on 03-06-2022 Varicella Immune Status IgG Antibody Positive Normal Positive [facility] Comment on above: Result Comment: Prio r exposure to the varicella zoster virus may cause measurable varicella zoster IgG antibody. Performed By: #### H SVM, HSVG12, EBVG, VZISB #### [facility] (DEFAULT) [address] [address] Varicella Immune Status IgG Index 1.1 Normal [facility] Comment on above: Result Comment: THIS IS A QUALITATIVE ASSAY. The numeric value is not necessarily indicative of the amount of anti-Measles, Mumps, Rubella, or VZV IgG antibody present. Results should be interpreted in conjunction with clinical and epidemological data. Performed By: #### H SVM, HSVG12, EBVG, VZISB #### U [facility] (DEFAULT) [address] [address] Glucose,Bedsideon 02-25-2021 Glucose [Mass/Vol] 96 mg/dL Normal 70-100 [facility] Comment on above: Result Comment: Test performed by glucose meter. Results may be 10%-15% lower than serum/plasma values. (CLIA ID [id number]) Performed By: #### B GLU #### [facility] [address] [place] [address] Glucose [Mass/Vol] 94 mg/dL Normal 70-100 [facility] Comment on above: Result Comment: Test performed by glucose meter. Results may be 10%-15% lower than serum/plasma values. (CLIA ID [id number]) Performed By: #### B GLU #### [facility] [address] [place] [address] Op Noteon 02-25-2021 Op Note PATIENT: Simeon QUINONES ADMISSION DATE: 02/25/2021 SURGERY DATE: 02/25/2021 DATE [...] room in stable condition. Diskriter Job ID: [id number] Nick Mancilla MD DOD:02/25/2021 09:27 A BJORN/herman DOT:02/25/2021 10:23 A Job Number: [id number] Document Number: [id number] cc: Nick Mancilla MD [facility] [address] [place] [address] Normal [facility] Potassiumon 02-25-2021 Potassium [Moles/Vol] 4.4 mmol/L Normal 3.5-5.1 [facility] Comment on above: Performed By: #### K 3 #### [facility] [address] [place] [address] Basic Metabolic Panelon 01-26 Calcium [Mass/Vol] 9.4 mg/dL Normal 8.4-10.4 [facility] Comment on above: Performed By: #### B MP3, HEMOG ####[facility] [address] [place] [address] Glucose [Mass/Vol] 171 mg/dL High 70-100 [facility] Comment on above: Performed By: #### B MP3, HEMOG ####[facility] [address] [place] [address] Anion gap [Moles/Vol] 5 mmol/L Normal 3-13 [facility] Comment on above: Performed By: #### B MP3, HEMOG ####[facility] [address] [place] [address] CO2 [Moles/Vol] 31 mmol/L High 22-30 [facility] Comment on above: Performed By: #### B MP3, HEMOG ####[facility] [address] [place] [address] Creatinine [Mass/Vol] 4.14 mg/dL High 0.52-1.25 [facility] Comment on above: Performed By: #### B MP3, HEMOG ####[facility] [address] [place] [address] GFR/1.73 sq M.predicted among blacks MDRD (S/P/Bld) [Vol rate/Area] 16.6 mL/min/{1.73_m2} Abnormal >60 [facility] Comment on above: Performed By: #### B MP3, HEMOG ####[facility] [address] [place] [address] GFR/1.73 sq M.predicted among non-blacks MDRD (S/P/Bld) [Vol rate/Area] 14.3 mL/min/{1.73_m2} Abnormal >60 [facility] Comment on above: Result Comment: KDIG [...] secretion. Performed By: #### B MP3, HEMOG ####[address] [place] [address] Urea nitrogen [Mass/Vol] 46 mg/dL High 7-20 [facility] Comment on above: Performed By: #### Leslye MP3, HEMOG ####[address] [facility] [place] [address] Chloride [Moles/Vol] 100 mmol/L Normal 98-107 [facility] Comment on above: Performed By: #### B MP3, HEMOG ####[address] [facility] [place] [address] Potassium [Moles/Vol] 4.9 mmol/L Normal 3.5-5.1 [facility] Comment on above: Performed By: #### B MP3, HEMOG ####[address] [place] [address] Sodium [Moles/Vol] 135 mmol/L Normal 135-145 [facility] Comment on above: Performed By: #### B MP3, HEMOG ####[address] [place] [address] Hemogramon 02-21-2021 Erythrocyte distribution width (RBC) [Ratio] 18.0 % High 11.5-14.5 [facility] Comment on above: Performed By: #### Leslye MP3, HEMOG ####[place] [address] [facility] [place] [address] Hematocrit (Bld) [Volume fraction] 33.5 % Low 40.0-52.0 [facility] Comment on above: Performed By: #### Leslye MP3, HEMOG ####[place] [address] [facility] [place] [address] Hemoglobin (Bld) [Mass/Vol] 11.3 g/dL Low 13.0-18.0 [facility] Comment on above: Performed By: #### Leslye JUAREZ, HEMOG ####[address] [facility] [place] [address] MCH (RBC) [Entitic mass] 31.0 pg Normal 26.0-34.0 [facility] Comment on above: Performed By: #### Leslye JUAREZ, HEMOG ####[address] [facility] [place] [address] MCHC 33.7 % Normal 32.0-36.0 [facility] Comment on above: Performed By: #### Leslye JUAREZ, HEMOG ####[address] [facility] [place] [address] MCV (RBC) [Entitic vol] 92.0 fL Normal 80.0-98.0 [facility] Comment on above: Performed By: #### Leslye MP3, HEMOG ####[address] [facility] [place] [address] Platelet mean volume (Bld) [Entitic vol] 7.4 fL Normal 7.4-10.4 [facility] Comment on above: Performed By: #### Leslye MP3, HEMOG ####[address] [facility] [place] [address] Platelets (Bld) [#/Vol] 218 10*3/uL Normal 140-440 [facility] Comment on above: Performed By: #### Leslye MP3, HEMOG ####[address] [facility] [place] [address] RBC (Bld) [#/Vol] 3.64 10*6/uL Low 4.40-5.90 [facility] Comment on above: Performed By: #### B MP3, HEMOG ####[id number] [place] [address] WBC (Bld) [#/Vol] 7.1 10*3/uL Normal 3.6-10.7 [facility] Comment on above: Performed By: #### B MP3, HEMOG ####[facility] [address] 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 [...] supine position. Images were obtained using a Payfirma E9 vascular ultrasound machine. 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 [...] the supi (more content not included)... Normal [facility] VL Hemodialysis AccessOrdere d By: Nick Mancilla on 01-26-2021 [facility] Upper Extremity Hemodialysis Access Follow-up Evaluation Patient Stacie, : 1955 Study 01/26/2021 Name: Mauri Delcid (65yrs) Date: Patient [id number] Age: 65 Account: [id number] ID: Gender: M Loc: BP: Ordering Physician: Nick Mancilla MD Power Superintendent: Yajaira Sewell RDMS, RVT Interpreting Physician: Андрей Lawson M.D. 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 [...] supine position. Images were obtained using a Payfirma E9 vascular ultrasound machine. Findings Subclavian arteries: [...] signed by Андрей Lawson M.D. 01/26/2021 17:05 [facility] Work Phone: Thang, [facility] Incoming Cardiology Results From Julio C/April - 01/26/2021 5:06 PM EDT [facility] Upper Extremity Hemodialysis Access Follow-up Evaluation Patient Stacie, : 1955 Study 01/26/2021 Name: Mauri Delcid (65yrs) Date: Patient [id number] Age: 65 Account: [id number] ID: Gender: M Loc: BP: Ordering Physician: Nick Mancilla MD Power Superintendent: Yajaira Sewell RDMS, RVT Interpreting Physician: Андрей Lawson M.D. 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 [...] supine position. Images were obtained using a Payfirma E9 vascular ultrasound machine. Findings Subclavian arteries: [...] signed by Андрей Lawson M.D. 01/26/2021 17:05 [employer] Work Phone: [employer] Work Phone: Glucose,Bedsideon 2020 Glucose [Mass/Vol] 109 mg/dL High 70-100 [facility] Comment on above: Result Comment: Test performed by glucose meter. Results may be 10%-15% lower than serum/plasma values. (CLIA ID [id number]) Performed By: #### B GLU #### [employer] [address] [place] [address] Glucose [Mass/Vol] 101 mg/dL High 70-100 [facility] Comment on above: Result Comment: Test performed by glucose meter. Results may be 10%-15% lower than serum/plasma values. (CLIA ID [id number]) Performed By: #### B GLU #### [facility] [address] [place] [address] Op Noteon 2020 Op Note PATIENT: Simeon [...] DIAGNOSIS: End-stage renal disease. ANESTHESIA: Regional block. EVENT STAFF: Candice Tellez PA-C. ESTIMATED BLOOD LOSS: 25 [...] room in stable condition. Diskriter Job ID: [id number] Nick Mancilla MD DOD:2020 11:45 A BJORN/herman DOT:2020 01:28 P Job Number: [id number] Document Number: [id number] Normal [facility] POCT Glucoseon 2020 Glucose [Mass/Vol] 109 mg/dL High 70 - 100 mg/dL [facility] Work Phone: Comment on above: Test performed by gl ucose meter. Results may be 10%-15% lower than serum/plasma values. (CLIA ID [id number]) Interpretation and review of laboratory results Abnormal [facility] Work Phone: Test Performed by [facility], [address] [facility]. [place], [place] [address] [employer] Work Phone: Glucose [Mass/Vol] 101 mg/dL High 70 - 100 mg/dL [facility] Work Phone: Comment on above: Test performed by gl ucose meter. Results may be 10%-15% lower than serum/plasma values. (CLIA ID [id number]) Interpretation and review of laboratory results Abnormal [facility] Work Phone: Test Performed by [facility], [address] [place] [address] [facility] Work Phone: Potassiumon 2020 Potassium [Moles/Vol] 4.6 mmol/L Normal 3.5-5.1 [facility] Comment on above: Performed By: #### K 3 #### [facility] [address] [place] [address] Potassium [Moles/Vol] 4.6 mmol/L 3.5 - 5.1 mmol/L [facility] Work Phone: Test Performed by [facility], [address] [place] [address] [facility] Work Phone: Basic Metabolic Panelon 10-25 Anion gap [Moles/Vol] 7 mmol/L Normal 3-13 [facility] Comment on above: Performed By: #### B MP3, HEMOG #### [facility] [address] [place] [address] Calcium [Mass/Vol] 8.9 mg/dL Normal 8.4-10.4 [facility] Comment on above: Performed By: #### B MP3, HEMOG #### [facility] [address] [place] [address] CO2 [Moles/Vol] 32 mmol/L High 22-30 [facility] Comment on above: Performed By: #### B MP3, HEMOG #### [facility] [address] [place] [address] Glucose [Mass/Vol] 91 mg/dL Normal 70-100 [facility] Comment on above: Performed By: #### B MP3, HEMOG #### [facility] [address] [place] [address] Urea nitrogen [Mass/Vol] 32 mg/dL High 7-20 [facility] Comment on above: Performed By: #### B MP3, HEMOG #### [facility] [address] [place] [address] Creatinine [Mass/Vol] 2.84 mg/dL High 0.52-1.25 [facility] Comment on above: Performed By: #### B MP3, HEMOG #### [facility] [address] [place] [address] GFR/1.73 sq M.predicted among blacks MDRD (S/P/Bld) [Vol rate/Area] 26.2 mL/min/{1.73_m2} Abnormal >60 [facility] Comment on above: Performed By: #### B MP3, HEMOG #### [facility] [address] [place] [address] GFR/1.73 sq M.predicted among non-blacks MDRD (S/P/Bld) [Vol rate/Area] 22.6 mL/min/{1.73_m2} Abnormal >60 [facility] Comment on above: Result Comment: KDIG [...] Performed By: #### B MP3, HEMOG #### [facility] [address] [place] [address] Potassium [Moles/Vol] 4.1 mmol/L Normal 3.5-5.1 [facility] Comment on above: Performed By: #### B MP3, HEMOG #### [facility] [address] [place] [address] Sodium [Moles/Vol] 137 mmol/L Normal 135-145 [facility] Comment on above: Performed By: #### B MP3, HEMOG #### [facility] [address] [place] [address] Chloride [Moles/Vol] 99 mmol/L Normal 98-107 [facility] Comment on above: Performed By: #### B MP3, HEMOG #### [facility] [address] [place] [address] Anion gap [Moles/Vol] 7 mmol/L 3 - 13 mmol/L [facility] Work Phone: Calcium [Mass/Vol] 8.9 mg/dL 8.4 - 10. 4 mg/dL [facility] Work Phone: Chloride [Moles/Vol] 99 mmol/L 98 - 10 7 mmol/L [facility] Work Phone: CO2 [Moles/Vol] 32 mmol/L High 22 - 30 mmol/L [facility] Work Phone: [phone] Creatinine [Mass/Vol] 2.84 mg/dL High 0.52 - 1.25 mg/dL [facility] Work Phone: EGFR IF NonAfrican [place] 22.6 mL/min Abnormal >60 [facility] Work Phone: Comment on above: KDIGO guidelines [...] (S/P/Bld) [Vol rate/Area] 26.2 mL/min/{1.73_m2} Abnormal >60 [facility] Work Phone: Glucose [Mass/Vol] 91 mg/dL 70 - 100 mg/dL [facility] Work Phone: 1 Interpretation and review of laboratory results Abnormal [facility] Work Phone: 1 Potassium [Moles/Vol] 4.1 mmol/L 3.5 - 5.1 mmol/L [facility] Work Phone: Sodium [Moles/Vol] 137 mmol/L 135 - 145 mmol/L [facility] Work Phone: Urea nitrogen [Mass/Vol] 32 mg/dL High 7 - 20 mg/dL [facility] Work Phone: Test Performed by [facility], [address] [place] [address]. [place], [place] [address] [place], [place] [address]A Work Phone: CBCon 11-03-2020 Erythrocyte distribution width (RBC) [Ratio] 19.8 % High 11.5 - 14.5 % [facility] Work Phone: Hematocrit (Bld) [Volume fraction] 32.8 % Low 40.0 - 52.0 % [facility] Work Phone: Hemoglobin (Bld) [Mass/Vol] 10.8 g/dL Low 13.0 - 18.0 g/dL [facility] Work Phone: Interpretation and review of laboratory results Abnormal [facility] Work Phone: MCH (RBC) [Entitic mass] 30.0 pg 26.0 - 34.0 pg [facility] Work Phone: MCHC (RBC) [Mass/Vol] 32.9 % 32.0 - 36.0 % [facility] Work Phone: MCV (RBC) [Entitic vol] 91.3 fL 80.0 - 98.0 fL [facility] Work Phone: Platelet mean volume (Bld) [Entitic vol] 8.0 fL 7.4 - 10.4 fL [facility] Work Phone: Platelets (Bld) [#/Vol] 164 10*3/uL 140 - 440 10*3/uL [facility] Work Phone: RBC (Bld) [#/Vol] 3.59 10*6/uL Low 4.40 - 5.9 0 10*6/uL [facility] Work Phone: WBC (Bld) [#/Vol] 5.7 10*3/uL 3.6 - 10.7 10*3/uL [facility] Work Phone: Test Performed by [facility], [address] [place] [address] [facility] Work Phone: Hemogramon 11-03-2020 Erythrocyte distribution width (RBC) [Ratio] 19.8 % High 11.5-14.5 [facility] Comment on above: Performed By: #### B MP3, HEMOG #### [facility] [address] [place] [address] Hematocrit (Bld) [Volume fraction] 32.8 % Low 40.0-52.0 [facility] Comment on above: Performed By: #### B MP3, HEMOG #### [facility] [address] [place] [address] Hemoglobin (Bld) [Mass/Vol] 10.8 g/dL Low 13.0-18.0 [facility] Comment on above: Performed By: #### B MP3, HEMOG #### [facility] [address] [place] [address] MCH (RBC) [Entitic mass] 30.0 pg Normal 26.0-34.0 [facility] Comment on above: Performed By: #### B MP3, HEMOG #### [facility] [address] [place] [address] MCHC 32.9 % Normal 32.0-36.0 [facility] Comment on above: Performed By: #### B MP3, HEMOG #### [facility] [address] [place] [address] MCV (RBC) [Entitic vol] 91.3 fL Normal 80.0-98.0 [facility] Comment on above: Performed By: #### B MP3, HEMOG #### [facility] [address] [place] [address] Platelet mean volume (Bld) [Entitic vol] 8.0 fL Normal 7.4-10.4 [facility] Comment on above: Performed By: #### B MP3, HEMOG #### [facility] [address] [place] [address] Platelets (Bld) [#/Vol] 164 10*3/uL Normal 140-440 [facility] Comment on above: Performed By: #### B MP3, HEMOG #### [facility] [address] [place] [address] RBC (Bld) [#/Vol] 3.59 10*6/uL Low 4.40-5.90 [facility] Comment on above: Performed By: #### B MP3, HEMOG #### [facility] [address] [place] [address] WBC (Bld) [#/Vol] 5.7 10*3/uL Normal 3.6-10.7 [facility] Comment on above: Performed By: #### B MP3, HEMOG #### [facility] [address] [place] [address] Protein Electrophoresis, Uri ne Randomon 04-08-2019 Protein (U) [Mass/Vol] SEE BELOW Normal [facility] Comment on above: Result Comment: Prot [...] SEE BELOW Reviewed by Floyd Porter MD ([id number]) Performing Laboratory: [facility] [address] [place] [address] Performed By: #### G LMET #### [facility] [address] [place], [place] [address] Basic Panelon 04-07-2019 Creatinine [Mass/Vol] 2.14 mg/dL High 0.67-1.17 [facility] Comment on above: Performed By: #### U RIN2 #### [facility] [address] [place], [place] [address] Anion gap [Moles/Vol] 11 mmol/L Normal 8-16 [facility] Comment on above: Performed By: #### U RIN2 #### [facility] [address] [place], [place] [address] CO2 [Moles/Vol] 26 mmol/L Normal 21-32 [facility] Comment on above: Performed By: #### U RIN2 #### [facility] [address] [place], [place] [address] Glucose [Mass/Vol] 97 mg/dL Normal 70-99 [facility] Comment on above: Performed By: #### U RIN2 #### [facility] [address] [place], [place] [address] Urea nitrogen [Mass/Vol] 65 mg/dL High 7-18 [facility] Comment on above: Performed By: #### U RIN2 #### [facility] [address] [place], [place] [address] Calcium [Mass/Vol] 7.9 mg/dL Low 8.5-10.1 [facility] Comment on above: Performed By: #### U RIN2 #### [facility] [address] [place], [place] [address] Chloride [Moles/Vol] 102 mmol/L Normal 98-107 [facility] Comment on above: Performed By: #### U RIN2 #### [facility] [address] [place], [place] [address] Potassium [Moles/Vol] 4.8 mmol/L Normal 3.5-5.1 [facility] Comment on above: Performed By: #### U RIN2 #### [facility] [address] [place], [place] [address] Sodium [Moles/Vol] 134 mmol/L Low 136-145 [facility] Comment on above: Performed By: #### U RIN2 #### [address] [address] CASE MANAGEMon 04-07-2019 CASE MANAGEM HNO ID: [id number] Author: Jocelin MarquezRnAnette Pagan RN Service: Care Management Author Type: [...] 07, 2019 TIME: 4:08 PM PAGER/CONTACT #: [phone] [facility] CONSULT PROGon 04-07-2019 CONSULT PROG HNO ID: [id number] Author: Mohsen Castellanos Service: Infectious Disease Author [...] We will sign off. Mohsen Castellanos MD [facility] CONSULT PROG HNO ID: [id number] Author: Kiera Gonzalez Service: Endocrinology Author Type: [...] management seeing pt GARRET (acute kidney injury) ([facility]) POA: Yes Assessment AND Plan: creat sl up again, 2.14(2.32)(2.55)(2.32)(2.3 7)(2.1)(1.92)(1.81)(1.70)( 1.77)(1.86)(2.09)(2.33) (2.47); baseline 1.54; per renal CKD (chronic kidney disease) stage 3, GFR 30-59 ml/min ([facility]) POA: Yes Assessment AND Plan: creat 1.54 in 07/2018 Arteriosclerotic heart disease (ASHD) POA: Yes Assessment AND Plan: hx Hypertension, essential POA: Yes Assessment AND Plan: per caprice UTI (urinary tract infection) POA: Unknown Assessment AND Plan: on A/B Chronic combined systolic and diastolic CHF (congestive heart failure) ([facility]) POA: Yes Assessment AND Plan: hx SIGNATURE: Kiera Gonzalez MD PATIENT NAME: Mauri Quinones DATE: April 07, 2019 TIME: 8:10 AM PAGER: [phone] Normal [facility] Glucose Meteron 04-07-2019 Glucose [Mass/Vol] 99 mg/dL Normal 70-99 [facility] Comment on above: Result Comment: SULTANA Cruz OTPASCUAL Performed By: #### G LMET #### [place] [address] MDRD GFRon 04-07-2019 GFR/1.73 sq M predicted among non-blacks MDRD (S/P/Bld) [Vol rate/Area] 31.53 mL/min/{1.73_m2} Normal >60mL/min/1. 73m2 [facility] Comment on above: Result Comment: If t he patient is , multiply the result by 1.210. Performed By: #### G FR #### [place] [address] NUTRITIONon 04-07-2019 NUTRITION HNO ID: [id number] Author: Elizabeth Madrid Service: Nutrition Therapy Author [...] to f/u on diet instructions with OP chain carrier when he sees them. Orders Placed This [...] 0659 04/07/19 0700 - 04/08/19 0659 Shift 7461-0512 2845-9472 4979-4146 24 Hour Total 8725-5252 6715-1909 3839-9704 24 Hour Total INTAKE PO 480 480 PO 480 480 Shift Total 480 480 OUTPUT Urine 184 656 4583 Void (ml) 374 996 2919 Urine Not Saved. 2 x 2 x # of BMs Number of BMs 2 x 1 x 3 x Shift Total 386 855 7907 Weight (kg) 91.4 91.4 90.3 90.3 90.3 90.3 90.3 90.3 Vitamin and Mineral Labs in the past year: Recent Labs 03/24/19 1019 04/17/18 1609 B12 1,687* -- TIBC -- 312 FE -- 77 BOBY -- 142.0 MNT Billing Type: Re-assess/15 min 2 units SIGNATURE: Elizabeth Madrid RD,LD PATIENT NAME: Mauri Quinones DATE: April 07, 2019 TIME: 9:48 AM PAGER: [phone] [facility] PLAN OF CAREon 04-07-2019 PLAN OF CARE HNO ID: [id number] Author: Monica Wade (Pharmacist) Service: Pharmacy Author [...] Medications These medications were sent to e- [facility]/pharmacy [id number] [place] [address] - [address] - [phone] [address] [address] [facility] [place] [address] ? amoxicillin-clavulanic acid 500-125 mg per tablet ? gabapentin 100 mg capsule ? hydrALAZINE 50 mg tablet ? insulin lispro 100 unit/mL Inpn Normal [facility] PLAN OF CARE HNO ID: [id number] Author: Monica Wade (Pharmacist) Service: Pharmacy Author [...] Prescriptions sent electronically to patient's home pharmacy, [facility]. Will document education note separately. MONICA WADE PHARMACIST April 07, 2019 3:36 PM EXT: [id number] 04/07/2019 3:36 PM Medication List START taking [...] Medications These medications were sent to e- [facility]acy [id number] [place] [address] - [address] [facility] - [phone] [address] [address] [facility] [address] ? amoxicillin-clavulanic acid 500-125 mg per tablet ? gabapentin 100 mg capsule ? hydrALAZINE 50 mg tablet ? insulin lispro 100 unit/mL Inpn Normal [facility] PROGRESSon 04-07-2019 PROGRESS HNO ID: [id number] Author: Bravo Lamb) Ervin Service: Nephrology Author [...] 7.324 (L) 7.350 - 7.450 Final Specific [place], Ur Date Value Ref Range Status 03/23/2019 [...] collection Further w/u of proteinuria per his chain carrier as outpatient is not nephrotic range unclear why spep and light chains were discontinued orders and has pending upep still Signed out to his chain carrier dr. Mcfadden to reorder spep light chains and f/u on upep Continue phoslo monitor phos bp ok monitor Avoid nephrotoxins D/w patient and family at bedside and dr. Marcial. Chart reviewed. SIGNATURE: Bravo Mueller MD PATIENT NAME: Mauri Quinones PAGER: [phone] [facility] PROGRESS HNO ID: [id number] Author: Bravo Lamb) Ervin Service: Nephrology Author [...] 7.324 (L) 7.350 - 7.450 Final Specific [place], Ur Date Value Ref Range Status 03/23/2019 [...] collection Further w/u of proteinuria per his chain carrier as outpatient is not nephrotic range unclear why spep and light chains were discontinued orders and has pending upep still Signed out to his chain carrier dr. Mcfadden to reorder spep light chains and f/u on upep Continue phoslo monitor phos bp ok monitor Avoid nephrotoxins D/w patient and family at bedside Chart reviewed. SIGNATURE: Bravo Mueller MD PATIENT NAME: Mauri Quinones PAGER: [phone] Normal [facility] THERAPY NTon 04-07-2019 THERAPY NT HNO ID: [id number] Author: Isabela (Pt) Flori Service: Physical Therapy Author Type: Physical Therapist Type: Therapy (PT/OT/Speech/Resp) Filed: 04/07/2019 9:53 AM Note Text: Physical Therapy Treatment SERVICE DATE: 04/07/2019 SERVICE TIME: 0850 to 0914 ROOM: [place] [address] Recommended Discharge Disposition: Acute Rehab Recommended Discharge [...] Patient;Family TREATMENT INTERVENTIONS: Interventions Provided: Therapeutic Exercise (59586);Therapeutic Activity (77986) Therapeutic Exercise (83674) Treatment Minutes: 8 1 unit Skilled Intervention(s): pt completed seated hip flexion bilat x 10, long arc quads bilat x 10, and ankle pumps bilat x 10 Therapeutic Activity (25718) Treatment Minutes: 16 1 unit Skilled Intervention(s): [...] corresponding to this therapy visit. SIGNATURE: Isabela Ruby PT DATE: April 07, 2019 TIME: 9:53 AM Normal [facility] Basic Panelon 04-06-2019 Creatinine [Mass/Vol] 2.32 mg/dL High 0.67-1.17 [facility] Comment on above: Performed By: #### U RIN2 #### [facility] [address] [place], [place] [address] Anion gap [Moles/Vol] 12 mmol/L Normal 8-16 [facility] Comment on above: Performed By: #### U RIN2 #### [facility] [address] [place], [place] [address] CO2 [Moles/Vol] 26 mmol/L Normal 21-32 [facility] Comment on above: Performed By: #### U RIN2 #### [facility] [address] [place], [place] [address] Glucose [Mass/Vol] 72 mg/dL Normal 70-99 [facility] Comment on above: Performed By: #### U RIN2 #### [facility] [address] [place], [place] [address] Urea nitrogen [Mass/Vol] 72 mg/dL High 7-18 [facility] Comment on above: Performed By: #### U RIN2 #### [facility] [address] [place], [place] [address] Calcium [Mass/Vol] 7.8 mg/dL Low 8.5-10.1 [facility] Comment on above: Performed By: #### U RIN2 #### [facility] [address] [place], [place] [address] Chloride [Moles/Vol] 101 mmol/L Normal 98-107 [facility] Comment on above: Performed By: #### U RIN2 #### [facility] [address] [place], [place] [address] Potassium [Moles/Vol] 4.9 mmol/L Normal 3.5-5.1 [facility] Comment on above: Performed By: #### U RIN2 #### [facility] [address] [place], [place] [address] Sodium [Moles/Vol] 134 mmol/L Low 136-145 [facility] Comment on above: Performed By: #### U RIN2 #### [place] [address] CONSULT PROGon 04-06-2019 CONSULT PROG HNO ID: [id number] Author: Kiera Gonzalez Service: Endocrinology Author Type: [...] kidney disease) stage 3, GFR 30-59 ml/min ([facility]) POA: Yes Assessment AND Plan: creat 1.54 in 07/2018 Arteriosclerotic heart disease (ASHD) POA: Yes Assessment AND Plan: hx Hypertension, essential POA: Yes Assessment AND Plan: per caprice UTI (urinary tract infection) POA: Unknown Assessment AND Plan: on A/B Chronic combined systolic and diastolic CHF (congestive heart failure) ([facility]) POA: Yes Assessment AND Plan: hx SIGNATURE: Kiera Gonzalez MD PATIENT NAME: Mauri Quinones DATE: April 06, 2019 TIME: 8:55 AM PAGER: [phone] Normal [facility] PROGRESSon 04-06-2019 PROGRESS HNO ID: [id number] Author: Bravo Lamb) Ervin Service: Nephrology Author [...] 7.324 (L) 7.350 - 7.450 Final Specific [place], Ur Date Value Ref Range Status 03/23/2019 [...] collection Further w/u of proteinuria per his chain carrier as 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 SIGNATURE: Bravo Mueller MD PATIENT NAME: Mauri Quinones PAGER: [phone] [facility] PROGRESS HNO ID: [id number] Author: Ortega Timmons Service: Hospital Medicine Author Type: Physician Type: Progress Notes Filed: 04/06/2019 9:44 AM Note Text: DEPARTMENT OF HOSPITAL MEDICINE PROGRESS NOTE SERVICE DATE: 04/06/2019 SERVICE TIME: 9:00 AM Hospital Medicine/Primary Attending: Ortega Timmons MD NIGHT AND WEEKEND COVERAGE: From 7am - 7pm, please call [phone] After 7pm, please call cross cover pager #[phone] Subjective INTERVAL HPI: 63yo M admitted for [...] -- 03/24/19 0945 activity - mobilize patient ([place], [place]) 03/24/19 0245 pneumatic compression stockings ([place], [place]) 03/24/19 0245 activity - mobilize patient ([place]) VTE Prophylaxis: VTE prophylaxis appropriate Disposition: Inpatient awaiting precert Plan of care discussed with: Patient SIGNATURE: Ortega Timmons MD PATIENT NAME: Mauri Quinones DATE: April 06, 2019 TIME: 9:00 AM PAGER/CONTACT #: [phone] [phone] Normal [facility] Basic Panelon 04-05-2019 Creatinine [Mass/Vol] 2.55 mg/dL High 0.67-1.17 [facility] Comment on above: Performed By: #### U RIN2 #### [address] [address] Anion gap [Moles/Vol] 11 mmol/L Normal 8-16 [facility] Comment on above: Performed By: #### U RIN2 #### [address] [address] CO2 [Moles/Vol] 26 mmol/L Normal 21-32 [facility] Comment on above: Performed By: #### U RIN2 #### [address] [address] Glucose [Mass/Vol] 77 mg/dL Normal 70-99 [facility] Comment on above: Performed By: #### U RIN2 #### [address] [address] Urea nitrogen [Mass/Vol] 77 mg/dL High 7-18 [facility] Comment on above: Performed By: #### U RIN2 #### [facility] [address] [place], [place] [address] Calcium [Mass/Vol] 7.7 mg/dL Low 8.5-10.1 [facility] Comment on above: Performed By: #### U RIN2 #### [address] [address] Chloride [Moles/Vol] 99 mmol/L Normal 98-107 [facility] Comment on above: Performed By: #### U RIN2 #### [facility] [address] [place], [place] [address] Potassium [Moles/Vol] 4.9 mmol/L Normal 3.5-5.1 [facility] Comment on above: Performed By: #### U RIN2 #### [facility] [address] [place], [place] [address] Sodium [Moles/Vol] 131 mmol/L Low 136-145 [facility] Comment on above: Performed By: #### U RIN2 #### [facility] [address] [place], [place] [address] CONSULT PROGon 04-05-2019 CONSULT PROG HNO ID: [id number] Author: Kiera Gonzalez Service: Endocrinology Author Type: [...] management seeing pt GARRET (acute kidney injury) ([facility]) POA: Yes Assessment AND Plan: creat sl up again, 2.55(2.32)(2.37)(2.1)(1.92 )(1.81)(1.70)(1.77)(1.86)( 2.09)(2.33)(2.47); baseline 1.54; per renal CKD (chronic kidney disease) stage 3, GFR 30-59 ml/min ([facility]) POA: Yes Assessment AND Plan: creat 1.54 in 07/2018 Arteriosclerotic heart disease (ASHD) POA: Yes Assessment AND Plan: hx Hypertension, essential POA: Yes Assessment AND Plan: per caprice UTI (urinary tract infection) POA: Unknown Assessment AND Plan: on A/B Chronic combined systolic and diastolic CHF (congestive heart failure) ([facility]) POA: Yes Assessment AND Plan: hx SIGNATURE: Kiera Gonzalez MD PATIENT NAME: Mauri Quinones DATE: April 05, 2019 TIME: 9:48 AM PAGER: [phone] Normal [facility] Creatinine 24Hr Uron 019 Creatinine [Mass/Vol] 0.3 g/24 hrs Low 0.9-2.4 A [facility] Comment on above: Performed By: #### U RIN2 #### [place] [address] Total Volume 542 mL Low 4392-2660 [facility] Comment on above: Performed By: #### U RIN2 #### [facility] [address] [place] [id number] Hemogram/Diffon 04-05-2019 Abs Immature Grans 0.16 thou/cmm High 0.00-0.05 [facility] Comment on above: Performed By: #### U RIN2 #### [facility] [address] [place] [id number] Abs Neut (ANC) 9.12 thou/cmm High 1.78-5.38 [facility] Comment on above: Performed By: #### U RIN2 #### [facility] [address] [place], [place] [address] Abs. Baso 0.07 thou/cmm Normal 0.01-0.08 [facility] Comment on above: Performed By: #### U RIN2 #### [facility] [address] [place] [address] Abs. [place] 1.40 thou/cmm High 0.30-0.82 [facility] Comment on above: Performed By: #### U RIN2 #### [facility] [address] [place] [address] Basophils/100 WBC (Bld) 0.6 % Normal [facility] Comment on above: Performed By: #### U RIN2 #### [facility] [address] [place] [address] Eosinophils (Bld) [#/Vol] 0.43 thou/cmm Normal 0.04-0.54 [facility] Comment on above: Performed By: #### U RIN2 #### [facility] [address] [place] [address] Eosinophils/100 WBC (Bld) 3.5 % Normal [facility] Comment on above: Performed By: #### U RIN2 #### [facility] [address] [place] [address] Erythrocyte distribution width (RBC) [Ratio] 13.6 % Normal 11.6-14.4 [facility] Comment on above: Performed By: #### U RIN2 #### [facility] [address] [place] [address] Hematocrit (Bld) [Volume fraction] 25.4 % Low 40.1-51.0 [facility] Comment on above: Performed By: #### U RIN2 #### [facility] [address] [place] [address] Hemoglobin (Bld) [Mass/Vol] 8.1 g/dL Low 13.7-17.5 [facility] Comment on above: Performed By: #### U RIN2 #### [facility] [address] [place], [place] [address] Immature Grans 1.30 % Normal [facility] Comment on above: Performed By: #### U RIN2 #### [facility] [address] [place], [place] [address] Lymphocytes (Bld) [#/Vol] 1.03 thou/cmm Normal 0.84-2.85 [facility] Comment on above: Performed By: #### U RIN2 #### [facility] [address] [place], [place] [address] Lymphocytes/100 WBC (Bld) 8.4 % Normal [facility] Comment on above: Performed By: #### U RIN2 #### [facility] [address] [place], [place] [address] MCH (RBC) [Entitic mass] 29.6 pg Normal 25.7-32.2 [facility] Comment on above: Performed By: #### U RIN2 #### [facility] [address] [place], [place] [address] MCHC (RBC) [Mass/Vol] 31.9 % Low 32.3-36.5 [facility] Comment on above: Performed By: #### U RIN2 #### [facility] [address] [place], [place] [address] MCV (RBC) [Entitic vol] 92.7 fL Normal 83.2-95.6 [facility] Comment on above: Performed By: #### U RIN2 #### [facility] [address] [place], [place] [address] Monocytes/100 WBC (Bld) 11.5 % Normal [facility] Comment on above: Performed By: #### U RIN2 #### [facility] [address] [place], [place] [address] Platelet mean volume (Bld) [Entitic vol] 9.3 fL Normal 8.7-12.0 [facility] Comment on above: Performed By: #### U RIN2 #### [facility] [address] [place], [place] [address] Platelets (Bld) [#/Vol] 318 thou/cmm Normal 141-365 [facility] Comment on above: Performed By: #### U RIN2 #### [facility] [address] [place] [address] RBC (Bld) [#/Vol] 2.74 mil/cmm Low 4.63-6.08 [facility] Comment on above: Performed By: #### U RIN2 #### [facility] [address] [place] [address] RDW SD 46.2 fl High 36.1-45.8 [facility] Comment on above: Performed By: #### U RIN2 #### [facility] [address] [place] [address] Seg Neutrophil 74.7 % Normal [facility] Comment on above: Performed By: #### U RIN2 #### [facility] [address] [place] [address] WBC (Bld) [#/Vol] 12.21 thou/cmm High 4.23-9.07 [facility] Comment on above: Performed By: #### U RIN2 #### [facility] [address] [place] [address] PROGRESSon 04-05-2019 PROGRESS HNO ID: [id number] Author: Bravo Lamb) Ervin Service: Nephrology Author [...] results reviewed if applicable Labs: Recent Labs 04/05/1944404/04/19 0848 04/03/19 0400 WBC 12.21* 13.50* 13.38* [...] 7.324 (L) 7.350 - 7.450 Final Specific [place], Ur Date Value Ref Range Status 03/23/2019 [...] collection Further w/u of proteinuria per his chain carrier as outpatient Continue phoslo monitor phos Avoid nephrotoxins overdiuresis D/w patient and family at bedside Chart reviewed. SIGNATURE: Bravo Mueller MD PATIENT NAME: Mauri Quinones PAGER: [phone] Normal [facility] PROGRESS HNO ID: [id number] Author: Ortega Timmons Service: Hospital Medicine Author Type: Physician Type: Progress Notes Filed: 04/05/2019 2:07 PM Note Text: DEPARTMENT OF HOSPITAL MEDICINE PROGRESS NOTE SERVICE DATE: 04/05/2019 SERVICE TIME: 2:01 PM Hospital Medicine/Primary Attending: Ortega Timmons MD NIGHT AND WEEKEND COVERAGE: From 7am - 7pm, please call [phone] After 7pm, please call cross cover pager #[phone] Subjective INTERVAL HPI: 63yo M admitted for [...] -- 03/24/19 0945 activity - mobilize patient [place] 03/24/19 0245 pneumatic compression stockings ([place]) 03/24/19 0245 activity - mobilize patient ([place]) VTE Prophylaxis: VTE prophylaxis appropriate Disposition: Inpatient Plan of care discussed with: Patient SIGNATURE: Ortega Timmons MD PATIENT NAME: Mauri Quinones DATE: April 05, 2019 TIME: 2:01 PM PAGER/CONTACT #: [phone] [phone] Normal [facility] Protein 24Hr Uron 04-05-2019 Protein [Mass/Vol] 1703.0 mg/24 hrs High 0.0-149.0 [facility] Comment on above: Performed By: #### U RIN2 #### [place] [address] Basic Panelon 04-04-2019 Creatinine [Mass/Vol] 2.32 mg/dL High 0.67-1.17 [facility] Comment on above: Performed By: #### U RIN2 #### [address] [address] Anion gap [Moles/Vol] 14 mmol/L Normal 8-16 [facility] Comment on above: Performed By: #### U RIN2 #### [address] [address] CO2 [Moles/Vol] 24 mmol/L Normal 21-32 [facility] Comment on above: Performed By: #### U RIN2 #### [address] [address] Glucose [Mass/Vol] 111 mg/dL High 70-99 [facility] Comment on above: Performed By: #### U RIN2 #### [address] [address] Urea nitrogen [Mass/Vol] 78 mg/dL High 7-18 [facility] Comment on above: Performed By: #### U RIN2 #### [facility] [address] [place] [address] Calcium [Mass/Vol] 7.4 mg/dL Low 8.5-10.1 [facility] Comment on above: Performed By: #### U RIN2 #### [facility] [address] [place] [address] Chloride [Moles/Vol] 102 mmol/L Normal 98-107 [facility] Comment on above: Performed By: #### U RIN2 #### [facility] [address] [place] [address] Potassium [Moles/Vol] 4.5 mmol/L Normal 3.5-5.1 [facility] Comment on above: Performed By: #### U RIN2 #### [facility] [address] [place] [address] Sodium [Moles/Vol] 135 mmol/L Low 136-145 [facility] Comment on above: Performed By: #### U RIN2 #### [facility] [address] [place] [address] CASE MANAGEMon 04-04-2019 CASE MANAGEM HNO ID: [id number] Author: Jocelin (Rn) SULTANA Pagan Service: Care Management Author Type: Registered [...] 04, 2019 TIME: 1:05 PM PAGER/CONTACT #: [phone] [facility] CONSULT PROGon 04-04-2019 CONSULT PROG HNO ID: [id number] Author: Mohsen Castellanos Service: Infectious Disease Author [...] D/W pt and . Mohsen Castellanos MD [facility] CONSULT PROG HNO ID: [id number] Author: Kiera Gonzalez Service: Endocrinology Author Type: [...] 3 g in NaCl 0.9% 100 mL MB+/ADD-[place] ([place]) 3 g INTRAVENOUS q 8 H [...] 1619 04/03/19 1039 04/03/19 0632 04/03/19 0400 04/02/19 2023 04/02/19 0131 GLUC -- 111* -- -- [...] management seeing pt GARRET (acute kidney injury) ([facility]) POA: Yes Assessment AND Plan: creat sl up again, 2.32(2.37)(2.1)(1.92)(1.81 )(1.70)(1.77)(1.86)(2.09)( 2.33)(2.47); baseline 1.54; per renal CKD (chronic kidney disease) stage 3, GFR 30-59 ml/min ([facility]) POA: Yes Assessment AND Plan: creat 1.54 in 07/2018 Arteriosclerotic heart disease (ASHD) POA: Yes Assessment AND Plan: hx Hypertension, essential POA: Yes Assessment AND Plan: per caprice UTI (urinary tract infection) POA: Unknown Assessment AND Plan: on A/B Chronic combined systolic and diastolic CHF (congestive heart failure) ([facility]) POA: Yes Assessment AND Plan: hx SIGNATURE: Kiera Gonzalez MD PATIENT NAME: Mauri Quinones DATE: April 04, 2019 TIME: 9:48 AM PAGER: [phone] Normal [facility] Hemogram/Diffon 04-04-2019 Abs Immature Grans 0.20 thou/cmm High 0.00-0.05 [facility] Comment on above: Performed By: #### U RIN2 #### [facility] [address] [place] [address] Abs Neut (ANC) 10.53 thou/cmm High 1.78-5.38 [facility] Comment on above: Performed By: #### U RIN2 #### [facility] [address] [place] [address] Abs. Baso 0.05 thou/cmm Normal 0.01-0.08 [facility] Comment on above: Performed By: #### U RIN2 #### [facility] [address] [place] [address] Abs. [place] 1.34 thou/cmm High 0.30-0.82 [facility] Comment on above: Performed By: #### U RIN2 #### [facility] [address] [place] [address] Basophils/100 WBC (Bld) 0.4 % Normal [facility] Comment on above: Performed By: #### U RIN2 #### [facility] [address] [place] [address] Eosinophils (Bld) [#/Vol] 0.43 thou/cmm Normal 0.04-0.54 [facility] Comment on above: Performed By: #### U RIN2 #### [facility] [address] [place], [place] [address] Eosinophils/100 WBC (Bld) 3.2 % Normal [facility] Comment on above: Performed By: #### U RIN2 #### [facility] [address] [place] [address] Immature Grans 1.50 % Normal [facility] Comment on above: Performed By: #### U RIN2 #### [facility] [address] [place], [place] [address] Lymphocytes (Bld) [#/Vol] 0.95 thou/cmm Normal 0.84-2.85 [facility] Comment on above: Performed By: #### U RIN2 #### [facility] [address] [place], [place] [address] Lymphocytes/100 WBC (Bld) 7.0 % Normal [facility] Comment on above: Performed By: #### U RIN2 #### [facility] [address] [place] [address] Monocytes/100 WBC (Bld) 9.9 % Normal [facility] Comment on above: Performed By: #### U RIN2 #### [facility] [address] [place] [address] Seg Neutrophil 78.0 % Normal [facility] Comment on above: Performed By: #### U RIN2 #### [facility] [address] [place] [address] Erythrocyte distribution width (RBC) [Ratio] 13.6 % Normal 11.6-14.4 [facility] Comment on above: Performed By: #### U RIN2 #### [facility] [facility] [address] [address] Hematocrit (Bld) [Volume fraction] 27.4 % Low 40.1-51.0 [facility] Comment on above: Performed By: #### U RIN2 #### [facility] [address] [address] Hemoglobin (Bld) [Mass/Vol] 8.6 g/dL Low 13.7-17.5 [facility] Comment on above: Performed By: #### U RIN2 #### [facility] [address] [address] MCH (RBC) [Entitic mass] 29.4 pg Normal 25.7-32.2 [facility] Comment on above: Performed By: #### U RIN2 #### [facility] [address] [address] MCHC (RBC) [Mass/Vol] 31.4 % Low 32.3-36.5 [facility] Comment on above: Performed By: #### U RIN2 #### [facility] [address] [address] MCV (RBC) [Entitic vol] 93.5 fL Normal 83.2-95.6 [facility] Comment on above: Performed By: #### U RIN2 #### [facility] [address] [address] Platelet mean volume (Bld) [Entitic vol] 9.3 fL Normal 8.7-12.0 [facility] Comment on above: Performed By: #### U RIN2 #### [facility] [address] [place], [place] [address] Platelets (Bld) [#/Vol] 316 thou/cmm Normal 141-365 [facility] Comment on above: Performed By: #### U RIN2 #### [facility] [address] [id number] RBC (Bld) [#/Vol] 2.93 mil/cmm Low 4.63-6.08 [facility] Comment on above: Performed By: #### U RIN2 #### [facility] [address] [address] RDW SD 46.5 fl High 36.1-45.8 [facility] Comment on above: Performed By: #### U RIN2 #### [facility] [address] [id number] WBC (Bld) [#/Vol] 13.50 thou/cmm High 4.23-9.07 [facility] Comment on above: Performed By: #### U RIN2 #### [facility] [address] [id number] NURSING PROGon 04-04-2019 NURSING PROG HNO ID: [id number] Author: Vandana (Rn) SULTANA Stephen Service: ? Author Type: Registered Nurse Type: Nursing Progress Note Filed: 04/04/2019 4:41 PM Note Text: Nursing Progress Note Patient Name: Mauri Quinones Patient Location: [id number] Daily Note: pt up walking the key with walker, to the nurses station, steady on feet with no complaints at this time, pt returned to the room at bedside. This note was completed by: Vandana Stephen RN [facility] PROGRESSon 04-04-2019 PROGRESS HNO ID: [id number] Author: Bravo Lamb) Ervin Service: Nephrology Author [...] 7.324 (L) 7.350 - 7.450 Final Specific [place], Ur Date Value Ref Range Status 03/23/2019 [...] collection Further w/u of proteinuria per his chain carrier as 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 SIGNATURE: Bravo Mueller MD PATIENT NAME: Mauri Quinones PAGER: [phone] Normal [facility] PROGRESS HNO ID: [id number] Author: Jose Marcial Service: Hospital Medicine Author Type: Physician Type: Progress Notes Filed: 04/04/2019 6:39 PM Note Text: DEPARTMENT OF HOSPITAL MEDICINE PROGRESS NOTE SERVICE DATE: 04/04/2019 SERVICE TIME: 10:34 AM Hospital Medicine/Primary Attending: Jose Marcial, DO NIGHT AND WEEKEND COVERAGE: From 7am - 7pm, please call [facility] [place] After 7pm, please call cross cover pager #[phone] Subjective INTERVAL HPI: Patient seen and examined. No new complaints. Requesting to be discharged home if no facility available. MEDICATIONS: Reviewed Objective PHYSICAL EXAM: BP 164/74 Pulse 71 Temp (Src) 98.6 (Oral) Resp 18 Ht 5' 10 (1.78m) Wt 199 lb (90.3kg) SpO2 94% BMI 28.55 kg/(m2). O2 Therapy: Room Air Physical Exam Performed General: Alert, NAD, cooperative CV: RRR, +[id number], no murmur Resp: CTA b/l, no wheeze [...] -- 03/24/19 0945 activity - mobilize patient ([place]) 03/24/19 0245 pneumatic compression stockings (co,or) 03/24/19 0245 activity - mobilize patient ([place]) VTE Prophylaxis: VTE prophylaxis appropriate Disposition: SNF vs Home with HHC. Await pt/familyd decision. Stable for discharge. Plan of care discussed with: Patient, Care Management and RN SIGNATURE: Jose Marcial DO PATIENT NAME: Mauri Quinones DATE: April 04, 2019 TIME: 6:34 PM PAGER/CONTACT #: Maureen Hayes Normal [facility] Basic Panelon 04-03-2019 Creatinine [Mass/Vol] 2.37 mg/dL High 0.67-1.17 [facility] Comment on above: Performed By: #### U RIN2 #### [address] [address] Anion gap [Moles/Vol] 13 mmol/L Normal 8-16 [facility] Comment on above: Performed By: #### U RIN2 #### [address] [address] CO2 [Moles/Vol] 25 mmol/L Normal 21-32 [facility] Comment on above: Performed By: #### U RIN2 #### [address] [address] Glucose [Mass/Vol] 87 mg/dL Normal 70-99 [facility] Comment on above: Performed By: #### U RIN2 #### [facility] [address] [place], [place] [address] Urea nitrogen [Mass/Vol] 78 mg/dL High 7-18 [facility] Comment on above: Performed By: #### U RIN2 #### [facility] [address] [place], [place] [address] Calcium [Mass/Vol] 8.1 mg/dL Low 8.5-10.1 [facility] Comment on above: Performed By: #### U RIN2 #### [facility] [address] [place], [place] [address] Chloride [Moles/Vol] 99 mmol/L Normal 98-107 [facility] Comment on above: Performed By: #### U RIN2 #### [facility] [address] [place], [place] [address] Potassium [Moles/Vol] 4.7 mmol/L Normal 3.5-5.1 [facility] Comment on above: Performed By: #### U RIN2 #### [facility] [address] [place], [place] [address] Sodium [Moles/Vol] 132 mmol/L Low 136-145 [facility] Comment on above: Performed By: #### U RIN2 #### [facility] [address] [id number] CASE MANAGEMon 04-03-2019 CASE MANAGEM HNO ID: [id number] Author: Jocelin MarquezRnAnette Pagan RN Service: Care Management Author Type: [...] 03, 2019 TIME: 3:35 PM PAGER/CONTACT #: [phone] [facility] CASE MANAGEM HNO ID: [id number] Author: Jocelin Pagan RN Service: Care Management [...] 03, 2019 TIME: 12:07 PM PAGER/CONTACT #: [phone] [facility] CONSULTon 04-03-2019 CONSULT HNO ID: [id number] Author: Angel Weiner Service: Urology Author Type: [...] Diagnosis Date - GARRET (acute kidney injury) ([facility]) 03/24/2019 - Ankylosing spondylitis ([facility]) - CAD (coronary artery disease) - Cellulitis - Chronic combined systolic and diastolic CHF (congestive heart failure) ([facility]) 03/24/2019 - CKD (chronic kidney disease) stage 3, GFR 30-59 ml/min ([facility]) 03/24/2019 - Constipation - Diabetes ([facility]) - Gout - High phosphate levels 03/24/2019 - Hx of fracture multiple bones - Hyperkalemia 03/24/2019 - Hypoalbuminemia 03/24/2019 - Hyponatremia 03/24/2019 - Hypoxia 03/24/2019 - NSTEMI (non-ST elevated myocardial infarction) ([facility]) 03/12/2017 [facility] admit - Osteoarthritis PAST SURGICAL HISTORY: [...] 7.324 (L) 7.350 - 7.450 Final Specific [place], Ur Date Value Ref Range Status 03/23/2019 [...] in the resident's note. Angel Weiner MD [facility] CONSULT PROGon 04-03-2019 CONSULT PROG HNO ID: [id number] Author: Kiera Gonzalez Service: Endocrinology Author Type: [...] 3 g in NaCl 0.9% 100 mL MB+/ADD-[place] (UNASYN) 3 g INTRAVENOUS q 8 H [...] complication, with long-term current use of insulin ([facility]) POA: Yes Assessment AND Plan: 12-15 ears [...] management seeing pt GARRET (acute kidney injury) ([facility]) POA: Yes Assessment AND Plan: creat up again, 2.37(2.1)(1.92)(1.81)(1.70 )(1.77)(1.86)(2.09)(2.33)( 2.47); baseline 1.54; per renal CKD (chronic kidney disease) stage 3, GFR 30-59 ml/min ([facility]) POA: Yes Assessment AND Plan: creat 1.54 in 07/2018 Arteriosclerotic heart disease (ASHD) POA: Yes Assessment AND Plan: hx Hypertension, essential POA: Yes Assessment AND Plan: per caprice UTI (urinary tract infection) POA: Unknown Assessment AND Plan: on A/B Chronic combined systolic and diastolic CHF (congestive heart failure) ([facility]) POA: Yes Assessment AND Plan: hx SIGNATURE: Kiera Gonzalez MD PATIENT NAME: Mauri Quinones DATE: April 03, 2019 TIME: 8:49 AM PAGER: [phone] Normal [facility] Hemogram/Diffon 04-03-2019 Abs Immature Grans 0.24 thou/cmm High 0.00-0.05 [facility] Comment on above: Performed By: #### U RIN2 #### [facility] [address] [address] Abs Neut (ANC) 10.22 thou/cmm High 1.78-5.38 [facility] Comment on above: Performed By: #### U RIN2 #### [place] [address] Abs. Baso 0.05 thou/cmm Normal 0.01-0.08 [facility] Comment on above: Performed By: #### U RIN2 #### [place] [address] Abs. [place] 1.40 thou/cmm High 0.30-0.82 [facility] Comment on above: Performed By: #### U RIN2 #### [place] [address] Basophils/100 WBC (Bld) 0.4 % Normal [facility] Comment on above: Performed By: #### U RIN2 #### [place] [address] Eosinophils (Bld) [#/Vol] 0.45 thou/cmm Normal 0.04-0.54 [facility] Comment on above: Performed By: #### U RIN2 #### [place] [address] Eosinophils/100 WBC (Bld) 3.4 % Normal [facility] Comment on above: Performed By: #### U RIN2 #### [facility] [address] [address] Immature Grans 1.80 % Normal [facility] Comment on above: Performed By: #### U RIN2 #### [place] [address] Lymphocytes (Bld) [#/Vol] 1.00 thou/cmm Normal 0.84-2.85 [facility] Comment on above: Performed By: #### U RIN2 #### [facility] [address] [place], [place] [address] Lymphocytes/100 WBC (Bld) 7.5 % Normal [facility] Comment on above: Performed By: #### U RIN2 #### [facility] [address] [place], [place] [address] Monocytes/100 WBC (Bld) 10.5 % Normal [facility] Comment on above: Performed By: #### U RIN2 #### [facility] [address] [place], [place] [address] Seg Neutrophil 76.4 % Normal [facility] Comment on above: Performed By: #### U RIN2 #### [facility] [address] [place], [place] [address] Erythrocyte distribution width (RBC) [Ratio] 13.6 % Normal 11.6-14.4 [facility] Comment on above: Performed By: #### U RIN2 #### [facility] [address] [place], [place] [address] Hematocrit (Bld) [Volume fraction] 29.0 % Low 40.1-51.0 [facility] Comment on above: Performed By: #### U RIN2 #### [facility] [address] [place], [place] [address] Hemoglobin (Bld) [Mass/Vol] 9.1 g/dL Low 13.7-17.5 [facility] Comment on above: Performed By: #### U RIN2 #### [facility] [address] [place], [place] [address] MCH (RBC) [Entitic mass] 29.4 pg Normal 25.7-32.2 [facility] Comment on above: Performed By: #### U RIN2 #### [facility] [address] [place], [place] [address] MCHC (RBC) [Mass/Vol] 31.4 % Low 32.3-36.5 [facility] Comment on above: Performed By: #### U RIN2 #### [facility] [address] [place], [place] [address] MCV (RBC) [Entitic vol] 93.5 fL Normal 83.2-95.6 [facility] Comment on above: Performed By: #### U RIN2 #### [facility] [address] [place], [place] [address] Platelet mean volume (Bld) [Entitic vol] 9.3 fL Normal 8.7-12.0 [facility] Comment on above: Performed By: #### U RIN2 #### [facility] [address] [place], [place] [address] Platelets (Bld) [#/Vol] 349 thou/cmm Normal 141-365 [facility] Comment on above: Performed By: #### U RIN2 #### [facility] [address] [address] RBC (Bld) [#/Vol] 3.10 mil/cmm Low 4.63-6.08 [facility] Comment on above: Performed By: #### U RIN2 #### [facility] [address] [address] RDW SD 46.3 fl High 36.1-45.8 [facility] Comment on above: Performed By: #### U RIN2 #### [facility] [address] [place], [place] [address] WBC (Bld) [#/Vol] 13.38 thou/cmm High 4.23-9.07 [facility] Comment on above: Performed By: #### U RIN2 #### [facility] [address] [address] PROGRESSon 04-03-2019 PROGRESS HNO ID: [id number] Author: Jesus (Blaze Romano MD Service: Urology Author Type: Resident Type: Progress Notes Filed: 04/03/2019 6:18 PM Note Text: - Patient voiding spontaneously today - PVR after unrecorded void was 0mL - No indication for butler catheter at this time - Urology will sign off Jesus Romano MD Urology, PGY-2 April 03, 2019 6:18 PM Pager: [phone] [facility] PROGRESS HNO ID: [id number] Author: Bravo Lamb) Ervin Service: Nephrology Author [...] 3 g in NaCl 0.9% 100 mL MB+/ADD-[place] (UNASYN) 3 g INTRAVENOUS q 8 H [...] 7.324 (L) 7.350 - 7.450 Final Specific [place], Ur Date Value Ref Range Status 03/23/2019 [...] collection Further w/u of proteinuria per his chain carrier as outpatient proteinuria likely 2/2 diabetic nephropathy Continue phoslo monitor phos Avoid nephrotoxins overdiuresis AUR will get urology input 400 ml after straight cath Chart reviewed. SIGNATURE: Bravo Mueller MD PATIENT NAME: Mauri Quinones PAGER: [phone] Normal [facility] PROGRESS HNO ID: [id number] Author: Jose Marcial Service: Hospital Medicine Author Type: Physician Type: Progress Notes Filed: 04/03/2019 4:50 PM Note Text: DEPARTMENT OF HOSPITAL MEDICINE PROGRESS NOTE SERVICE DATE: 04/03/2019 SERVICE TIME: 11:46 AM Hospital Medicine/Primary Attending: Jose Marcial, DO NIGHT AND WEEKEND COVERAGE: From 7am - 7pm, please call [facility] [place] After 7pm, please call cross cover pager #[phone] Subjective INTERVAL HPI: Pt seen and examined. No new complaints. Neck/shoulder pain is stable. Per nursing Post void residual was 0. MEDICATIONS: Reviewed Objective PHYSICAL EXAM: BP 151/68 Pulse 69 Temp (Src) 97.9 (Oral) Resp 18 Ht 5' 10 (1.78m) Wt 203 lb (92.1kg) SpO2 94% BMI 29.13 kg/(m2). O2 Therapy: Room Air Physical Exam Performed General: Alert, NAD, cooperative CV: RRR, +[id number], no murmur Resp: CTA b/l, no wheeze [...] -- 03/24/19 0945 activity - mobilize patient ([place]) 03/24/19 0245 pneumatic compression stockings (fl,oh) 03/24/19 0245 activity - mobilize patient ([place]) VTE Prophylaxis: VTE prophylaxis appropriate Disposition: Acute Rehab. Plan of care discussed with: Patient, Care Management and RN SIGNATURE: Jose Marcial DO PATIENT NAME: Mauri Quinones DATE: April 03, 2019 TIME: 4:46 PM PAGER/CONTACT #: Maureen Koo Lisa [facility] THERAPY NTon 04-03-2019 THERAPY NT HNO ID: [id number] Author: Paulette MarquezOtr/LAnette Lion Service: Occupational Therapy Author Type: Occupational Therapist Type: Therapy (PT/OT/Speech/Resp) Filed: 04/03/2019 10:18 AM Note Text: Occupational Therapy Evaluation SERVICE DATE: 04/03/2019 SERVICE TIME: 50 to 1010 ROOM: [id number] Recommended Discharge Disposition: Acute Rehab Recommended Discharge [...] of daily living (ADL) Interventions Provided: Self Prison Management (82508) Self Prison Management (09743) Treatment Minutes: 20 1 unit Skilled Intervention(s): [...] April 03, 2019 TIME: 10:14 AM Normal [facility] THERAPY NT HNO ID: [id number] Author: Vinny MarquezPtAnette Benitez PT Service: Physical Therapy Author Type: Physical Therapist Type: Therapy (PT/OT/Speech/Resp) Filed: 04/03/2019 10:18 AM Note Text: Physical Therapy Treatment SERVICE DATE: 04/03/2019 SERVICE TIME: 933 to 956 ROOM: [id number] Recommended Discharge Disposition: Acute Rehab Recommended Discharge [...] Patient;Family TREATMENT INTERVENTIONS: Interventions Provided: Therapeutic Exercise (91657);Gait Training (91136);Therapeutic Activity (05563) Therapeutic Exercise (17751) Treatment Minutes: 10 1 unit Skilled Intervention(s): Instruction in therapeutic exercise hip flexion/marching, long arc quads, ankle pumps, hip abduction/adduction Verbal and tactile cuing provided with demonstration for technique and appropriate muscle activation. Positive encouragement and cues for full AROM 2x10 reps each exercise Therapeutic Activity (47579) Treatment Minutes: 5 0 units Skilled Intervention(s): Instructed patient in log roll technique Instructed patient in supine to and from sit pushing with upper extremities to sit up Instruction in sit to and from stand technique with proper hand placement and body positioning at edge of bed/chair Education with appropriate use of wheeled walker Gait Training (42233) Treatment Minutes: 8 1 unit Skilled Intervention(s): [...] gait pattern;Gaby decreased;Step length decreased;Flexed trunk posture -M: 7: Walk 25 feet or more Please see discipline specific clinical documentation flowsheet for complete details for this therapy evaluation/treatment. SIGNATURE: Vinny Benitez PT PATIENT NAME: Mauri Quinones DATE: April 03, 2019 TIME: 10:13 AM Normal [facility] Basic Panelon 04-02-2019 Creatinine [Mass/Vol] 2.10 mg/dL High 0.67-1.17 [facility] Comment on above: Performed By: #### E RTRP #### [facility] [address] [place], [place] [address] Anion gap [Moles/Vol] 13 mmol/L Normal 8-16 [facility] Comment on above: Performed By: #### E RTRP #### [address] [address] Calcium [Mass/Vol] 7.8 mg/dL Low 8.5-10.1 [facility] Comment on above: Performed By: #### E RTRP #### [address] [address] CO2 [Moles/Vol] 26 mmol/L Normal 21-32 [facility] Comment on above: Performed By: #### E RTRP #### [facility] [address] [place], [place] [address] Glucose [Mass/Vol] 91 mg/dL Normal 70-99 [facility] Comment on above: Performed By: #### E RTRP #### [facility] [address] [place], [place] [address] Urea nitrogen [Mass/Vol] 81 mg/dL High 7-18 [facility] Comment on above: Performed By: #### E RTRP #### [facility] [address] [place], [place] [address] Chloride [Moles/Vol] 102 mmol/L Normal 98-107 [facility] Comment on above: Performed By: #### E RTRP #### [facility] [address] [place], [place] [address] Potassium [Moles/Vol] 5.4 mmol/L High 3.5-5.1 [facility] Comment on above: Performed By: #### E RTRP #### [facility] [address] [place], [place] [address] Sodium [Moles/Vol] 136 mmol/L Normal 136-145 [facility] Comment on above: Performed By: #### E RTRP #### [facility] [address] [place], [place] [address] CASE MANAGEMon 04-02-2019 CASE MANAGEM HNO ID: [id number] Author: Jocelin MarquezRn) SULTANA Pagan Service: Care Management Author Type: Registered Nurse Type: Care Mgt Progress Note Filed: 04/02/2019 3:12 PM Note Text: CARE MANAGEMENT PROGRESS NOTE SERVICE DATE: 04/02/2019 SERVICE TIME: 2:57 PM LOS: 9 days Met with , discussed denial by [facility] and discussed Justino Esquivel. SHe would like referral placed to [facility] for acute rehab. SIGNATURE: Jocelin Pagan RN PATIENT NAME: Mauri Quinones DATE: April 02, 2019 TIME: 2:57 PM PAGER/CONTACT #: [phone] [facility] CASE MANAGEM HNO ID: [id number] Author: Jocelin Pagan RN Service: Care Management Author Type: Registered Nurse Type: Care Mgt Progress Note Filed: 04/02/2019 9:59 AM Note Text: CARE MANAGEMENT PROGRESS NOTE SERVICE DATE: 04/02/2019 SERVICE TIME: 9:57 AM LOS: 9 days FREEDOM OF CHOICE GIVEN: The patient and/or family has been given the Provider List: Yes Provider List: Half-Way Facility Met with pt at bedside, discussed denial by [facility], provided SNF choice list to pt waiting for to come in and will discuss options. SIGNATURE: Jocelin Pagan RN PATIENT NAME: Mauri Quinones DATE: April 02, 2019 TIME: 9:57 AM PAGER/CONTACT #: [phone] [facility] CONSULT PROGon 04-02-2019 CONSULT PROG HNO ID: [id number] Author: oMhsen Castellanos Service: Infectious Disease Author Type: Physician [...] Repeat cbc in am. Mohsen Castellanos MD [facility] CONSULT PROG HNO ID: [id number] Author: Kiera Gonzalez Service: Endocrinology Author Type: [...] 3 g in NaCl 0.9% 100 mL MB+/ADD-[place] (UNASYN) 3 g INTRAVENOUS q 8 H [...] management seeing pt GARRET (acute kidney injury) ([facility]) POA: Yes Assessment AND Plan: creat 2.1(1.92)(1.81)(1.70)(1.77 )(1.86)(2.09)(2.33)(2.47); baseline 1.54; per renal CKD (chronic kidney disease) stage 3, GFR 30-59 ml/min ([facility]) POA: Yes Assessment AND Plan: creat 1.54 in 07/2018 Arteriosclerotic heart disease (ASHD) POA: Yes Assessment AND Plan: hx Hypertension, essential POA: Yes Assessment AND Plan: per caprice UTI (urinary tract infection) POA: Unknown Assessment AND Plan: on A/B Chronic combined systolic and diastolic CHF (congestive heart failure) ([facility]) POA: Yes Assessment AND Plan: hx SIGNATURE: Kiera Gonzalez MD PATIENT NAME: Mauri Quinones DATE: April 02, 2019 TIME: 8:57 AM PAGER: [phone] Normal [facility] NURSING PROGon 04-02-2019 NURSING PROG HNO ID: [id number] Author: Shaye MarquezRn) SULTANA Petty Service: ? Author Type: Registered Nurse Type: Nursing Progress Note Filed: 04/02/2019 6:34 AM Note Text: This RN at bedside to straight cath pt. RN explained procedure to pt and he is agreeable. 14F straight cath used with sterile technique to get out 450cc clear yellow urine. Pt tolerated well. [facility] NURSING PROG HNO ID: [id number] Author: Fallon Chaney RN Service: Nursing Author Type: Registered Nurse Type: Nursing Progress Note Filed: 04/02/2019 6:27 AM Note Text: Nursing Progress Note Patient Name: Mauri Quinones Patient Location: [id number] Dr. Briones ordered another straight cath for the pt. The pt had an output of 450. This RN will continue to monitor. This note was completed by: Fallon Chaney RN [facility] NURSING PROG HNO ID: [id number] Author: Fallon Chaney RN Service: Nursing Author Type: Registered Nurse Type: Nursing Progress Note Filed: 04/02/2019 6:05 AM Note Text: Nursing Progress Note Patient Name: Mauri Quinones Patient Location: [id number]- Pt has still not voided since DC of butler. Pt was bladder scanned and 400 was detected. Paged sound for further instruction. Will continue to monitor. This note was completed by: Fallon Chaney RN [facility] NURSING PROG HNO ID: [id number] Author: Fallon Chaney RN Service: Nursing Author Type: Registered Nurse Type: Nursing Progress Note Filed: 04/01/2019 10:54 PM Note Text: Nursing Progress Note Patient Name: Mauri Quinones Patient Location: [id number]- Lydia from sound ordered a one time straight cath. We removed 325 from the pt. Will rescan the pt at 530 am. Will continue to monitor. This note was completed by: Fallon Chaney RN [facility] NURSING PROG HNO ID: [id number] Author: Fallon Chaney RN Service: Nursing Author Type: Registered Nurse Type: Nursing Progress Note Filed: 04/01/2019 10:11 PM Note Text: Nursing Progress Note Patient Name: Mauri Quinones Patient Location: [id number]- Pt was bladder scanned and showed a volume of 332. Paged Sound to notify. Will continue to monitor. This note was completed by: Fallon Chaney RN [facility] PLAN OF CAREon 04-02-2019 PLAN OF CARE HNO ID: [id number] Author: Michelle Zayas (Bar Staff) Service: Pharmacy Author Type: ? Type: Plan of Care Filed: 04/02/2019 11:00 AM Note Text: [facility] BEDS[facility] DELIVERY SURVEY 1. Patient to use [facility] Bedside Delivery - N/A Insurance Information as follows: 2. Insurance card on file - N/A 3. Credit card for payment - N/A Pt DC to SNF/Acute Rehab/Inpatient Facility therefore not eligible for Pharmacy Bedside Delivery service. [facility] PROGRESSon 04-02-2019 PROGRESS HNO ID: [id number] Author: Jose Marcial Service: Hospital Medicine Author Type: Physician Type: Progress Notes Filed: 04/02/2019 6:36 PM Note Text: DEPARTMENT OF HOSPITAL MEDICINE PROGRESS NOTE SERVICE DATE: 04/02/2019 SERVICE TIME: 6:17 PM Hospital Medicine/Primary Attending: Jose Marcial, DO NIGHT AND WEEKEND COVERAGE: From 7am - 7pm, please call [place] After 7pm, please call cross cover pager #[phone] Subjective INTERVAL HPI: Pt seen and examined. No new complaints MEDICATIONS: Reviewed Objective PHYSICAL EXAM: BP 116/51 Pulse 66 Temp (Src) 98.2 (Oral) Resp 16 Ht 5' 10 (1.78m) Wt 181 lb 14.1 oz (82.5kg) SpO2 94% BMI 26.10 kg/(m2). O2 Therapy: Room Air Physical Exam Performed General: Alert, NAD, cooperative CV: RRR, +[id number], no murmur Resp: CTA b/l, no wheeze [...] -- 03/24/19 0945 activity - mobilize patient (co,oh) 03/24/19 0245 pneumatic compression stockings (co,oh) 03/24/19 0245 activity - mobilize patient (co,oh) VTE Prophylaxis: VTE prophylaxis appropriate Disposition: Acute Rehab Plan of care discussed with: Patient SIGNATURE: Jose Marcial DO PATIENT NAME: Mauri Quinones DATE: April 02, 2019 TIME: 6:17 PM PAGER/CONTACT #: Maureen Gonzalez [facility] PROGRESS HNO ID: [id number] Author: Bravo Lamb) Ervin Service: Nephrology Author [...] 3 g in NaCl 0.9% 100 mL MB+/ADD-[place] (UNASYN) 3 g INTRAVENOUS q 8 H [...] 7.324 (L) 7.350 - 7.450 Final Specific [place], Ur Date Value Ref Range Status 03/23/2019 [...] US Further w/u of proteinuria per his chain carrier as 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 SIGNATURE: Bravo Mueller MD PATIENT NAME: Mauri Quinones PAGER: [phone] Normal [facility] Basic Panelon 04-01-2019 Creatinine [Mass/Vol] 1.92 mg/dL High 0.67-1.17 [facility] Comment on above: Performed By: #### E RTRP #### [address] [address] Anion gap [Moles/Vol] 11 mmol/L Normal 8-16 [facility] Comment on above: Performed By: #### E RTRP #### [address] [address] Calcium [Mass/Vol] 8.5 mg/dL Normal 8.5-10.1 [facility] Comment on above: Performed By: #### E RTRP #### [address] [address] CO2 [Moles/Vol] 24 mmol/L Normal 21-32 [facility] Comment on above: Performed By: #### E RTRP #### [facility] [address] [place], [place] [address] Glucose [Mass/Vol] 105 mg/dL High 70-99 [facility] Comment on above: Performed By: #### E RTRP #### [facility] [address] [place], [place] [address] Urea nitrogen [Mass/Vol] 73 mg/dL High 7-18 [facility] Comment on above: Performed By: #### E RTRP #### [facility] [address] [place], [place] [address] Chloride [Moles/Vol] 104 mmol/L Normal 98-107 [facility] Comment on above: Performed By: #### E RTRP #### [facility] [address] [place], [place] [address] Potassium [Moles/Vol] 5.2 mmol/L High 3.5-5.1 [facility] Comment on above: Performed By: #### E RTRP #### [facility] [address] [place], [place] [address] Sodium [Moles/Vol] 134 mmol/L Low 136-145 [facility] Comment on above: Performed By: #### E RTRP #### [facility] [address] [place], [place] [address] CASE MANAGEMon 04-01-2019 CASE MANAGEM HNO ID: [id number] Author: Jocelin (Rn) SULTANA Pagan Service: Care Management Author Type: Registered [...] 01, 2019 TIME: 1:50 PM PAGER/CONTACT #: [phone] Normal [facility] CONSULT PROGon 04-01-2019 CONSULT PROG HNO ID: [id number] Author: Mohsen Castellanos Service: Infectious Disease Author [...] q8h for risisng creatinine. Mohsen Castellanos MD [facility] CONSULT PROG HNO ID: [id number] Author: Kiera Gonzalez Service: Endocrinology Author Type: [...] 3 g in NaCl 0.9% 100 mL MB+/ADD-[place] (UNASYN) 3 g INTRAVENOUS q 6 H [...] management seeing pt GARRET (acute kidney injury) ([facility]) POA: Yes Assessment AND Plan: creat 1.92(1.81)(1.70)(1.77)(1.8 6)(2.09)(2.33)(2.47); baseline 1.54; per renal CKD (chronic kidney disease) stage 3, GFR 30-59 ml/min ([facility]) POA: Yes Assessment AND Plan: creat 1.54 in 07/2018 Arteriosclerotic heart disease (ASHD) POA: Yes Assessment AND Plan: hx Hypertension, essential POA: Yes Assessment AND Plan: per caprice UTI (urinary tract infection) POA: Unknown Assessment AND Plan: on A/B Chronic combined systolic and diastolic CHF (congestive heart failure) ([facility]) POA: Yes Assessment AND Plan: hx SIGNATURE: Kiera Gonzalez MD PATIENT NAME: Mauri Quinones DATE: April 01, 2019 TIME: 9:10 AM PAGER: [phone] Normal [facility] Hemogram/Diffon 04-01-2019 Abs Immature Grans 0.26 thou/cmm High 0.00-0.05 [facility] Comment on above: Performed By: #### E RTRP #### [place] [address] Abs Neut (ANC) 12.96 thou/cmm High 1.78-5.38 [facility] Comment on above: Performed By: #### E RTRP #### [place] [address] Abs. Baso 0.07 thou/cmm Normal 0.01-0.08 [facility] Comment on above: Performed By: #### E RTRP #### [place] [address] Abs. [place] 1.69 thou/cmm High 0.30-0.82 [facility] Comment on above: Performed By: #### E RTRP #### [facility] [address] [place], [place] [address] Basophils/100 WBC (Bld) 0.4 % Normal [facility] Comment on above: Performed By: #### E RTRP #### [facility] [address] [place], [place] [address] Eosinophils (Bld) [#/Vol] 0.39 thou/cmm Normal 0.04-0.54 [facility] Comment on above: Performed By: #### E RTRP #### [facility] [address] [place], [place] [address] Eosinophils/100 WBC (Bld) 2.4 % Normal [facility] Comment on above: Performed By: #### E RTRP #### [facility] [address] [place], [place] [address] Immature Grans 1.60 % Normal [facility] Comment on above: Performed By: #### E RTRP #### [facility] [address] [place], [place] [address] Lymphocytes (Bld) [#/Vol] 1.03 thou/cmm Normal 0.84-2.85 [facility] Comment on above: Performed By: #### E RTRP #### [facility] [address] [place], [place] [address] Lymphocytes/100 WBC (Bld) 6.3 % Normal [facility] Comment on above: Performed By: #### E RTRP #### [facility] [address] [place], [place] [address] Monocytes/100 WBC (Bld) 10.3 % Normal [facility] Comment on above: Performed By: #### E RTRP #### [facility] [address] [place], [place] [address] Seg Neutrophil 79.0 % Normal [facility] Comment on above: Performed By: #### E RTRP #### [facility] [address] [place], [place] [address] Erythrocyte distribution width (RBC) [Ratio] 13.9 % Normal 11.6-14.4 [facility] Comment on above: Performed By: #### E RTRP #### [facility] [address] [place], [place] [address] Hematocrit (Bld) [Volume fraction] 29.0 % Low 40.1-51.0 [facility] Comment on above: Performed By: #### E RTRP #### [facility] [address] [place], [place] [address] Hemoglobin (Bld) [Mass/Vol] 9.1 g/dL Low 13.7-17.5 [facility] Comment on above: Performed By: #### E RTRP #### [facility] [address] [place], [place] [address] MCH (RBC) [Entitic mass] 30.1 pg Normal 25.7-32.2 [facility] Comment on above: Performed By: #### E RTRP #### [facility] [address] [place] [address] MCHC (RBC) [Mass/Vol] 31.4 % Low 32.3-36.5 [facility] Comment on above: Performed By: #### E RTRP #### [facility] [address] [place] [address] MCV (RBC) [Entitic vol] 96.0 fL High 83.2-95.6 [facility] Comment on above: Performed By: #### E RTRP #### [facility] [address] [place] [address] Platelet mean volume (Bld) [Entitic vol] 8.8 fL Normal 8.7-12.0 [facility] Comment on above: Performed By: #### E RTRP #### [facility] [address] [place], [place] [address] Platelets (Bld) [#/Vol] 348 thou/cmm Normal 141-365 [facility] Comment on above: Performed By: #### E RTRP #### [facility] [address] [place], [place] [address] RBC (Bld) [#/Vol] 3.02 mil/cmm Low 4.63-6.08 [facility] Comment on above: Performed By: #### E RTRP #### [facility] [address] [place], [place] [address] RDW SD 48.4 fl High 36.1-45.8 [facility] Comment on above: Performed By: #### E RTRP #### [facility] [address] [place], [place] [address] WBC (Bld) [#/Vol] 16.41 thou/cmm High 4.23-9.07 [facility] Comment on above: Performed By: #### E RTRP #### [facility] [address] [place], [place] [address] NUTRITIONon 04-01-2019 NUTRITION HNO ID: [id number] Author: Elizabeth Madrid Service: Nutrition Therapy Author [...] 2 days later. Patient has been to [place] [facility] ?2 and was diagnosed with a cervical strain as well as arthritis in the neck. He was put on muscle relaxants and pain medications. He was also diagnosed with a UTI and put on Keflex. Patient was not having any improvement with symptoms and came to [facility] ER. Patient currently is having pain [...] Complication, With Long-Term Current Use of Insulin (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) Acute On Chronic Diastolic Congestive Heart Failure ([facility]) Recurrent Right Pleural Effusion Pvd (Peripheral Vascular Disease) ([facility]) Altered Mental Status Uti (Urinary Tract Infection) Chronic Combined Systolic and Diastolic Chf (Congestive Heart Failure) ([facility]) Hyperkalemia Hypoxia Hypoalbuminemia Garret (Acute Kidney Injury) ([facility]) Ckd (Chronic Kidney Disease) Stage 3, Gfr 30-59 Ml/Min ([facility]) High Phosphate Levels Hyponatremia Delirium PAST MEDICAL HISTORY Diagnosis Date - GARRET (acute kidney injury) ([facility]) 03/24/2019 - Ankylosing spondylitis ([facility]) - CAD (coronary artery disease) - Cellulitis - Chronic combined systolic and diastolic CHF (congestive heart failure) ([facility]) 03/24/2019 - CKD (chronic kidney disease) stage 3, GFR 30-59 ml/min ([facility]) 03/24/2019 - Constipation - Diabetes ([facility]) - Gout - High phosphate levels 03/24/2019 - Hx of fracture multiple bones - Hyperkalemia 03/24/2019 - Hypoalbuminemia 03/24/2019 - Hyponatremia 03/24/2019 - Hypoxia 03/24/2019 - NSTEMI (non-ST elevated myocardial infarction) ([facility]) 03/12/2017 [facility] admit - Osteoarthritis PAST SURGICAL HISTORY [...] over the past 8 day(s) Pt states [employer] appetite and PO were adequate and denies weight loss. States UBW to be 185lbs. PO has been poor this admission d/t not feeling well- pt states consuming 25% of meals. Per [facility] documentation, pt consuming 25-100% of meals. Pt [...] Resting Metabolic Rate: 1646 Estimated kilocalorie needs: 0053-2723 kilocalories determined by 25-30 kcal/kg Estimated protein [...] 3 g in NaCl 0.9% 100 mL MB+/ADD-[place] (UNASYN) 3 g INTRAVENOUS q 6 H [...] 15 Units SUBCUTANEOUS DAILY (8 AM) Date 03/31/19 07 - 04/01/19 0659 04/01/19 0700 - 04/02/19 0659 Shift 2525-9950 9379-0522 5906-9610 24 Hour Total 8445-7627 3753-3711 9205-8260 24 Hour Total INTAKE PO 240 240 PO 240 240 Shift Total 240 240 OUTPUT Urine 573 325 9073 Output ( Indwelling Urinary Catheter 03/28/19 1500 [place] 16 Fr) 785 112 3770 # of BMs Number of BMs 1 x 1 x 1 x 1 x Shift Total 652 512 0061 Weight (kg) 83.1 83.1 83.1 83.1 83.1 83.1 83.1 83.1 Vitamin and Mineral Labs in the past year: Recent Labs 03/24/19 1019 04/17/18 1609 B12 1,687* -- TIBC -- 312 FE -- 77 BOBY -- 142.0 MNT Billing Type: Initial Assess/15 min 2 units SIGNATURE: Elizabeth Madrid RD,LD PATIENT NAME: Mauri Quinones DATE: April 01, 2019 TIME: 9:24 AM PAGER: [phone] Normal [facility] PROGRESSon 04-01-2019 PROGRESS HNO ID: [id number] Author: Ra Alcala Service: Hospital Medicine Author Type: Physician Type: Progress Notes Filed: 04/01/2019 3:59 PM Note Text: DEPARTMENT OF HOSPITAL MEDICINE PROGRESS NOTE SERVICE DATE: 04/01/2019 SERVICE TIME: 3:55 PM Hospital Medicine/Primary Attending: Ra Alcala MD NIGHT AND WEEKEND COVERAGE: After 7pm please page [phone] SUBJECTIVE: F/u UTI. No CP SOB NVD, [...] 3 g in NaCl 0.9% 100 mL MB+/ADD-[place] (UNASYN) 3 g INTRAVENOUS q 6 H [...] 3:55 PM PAGER/CONTACT #: My Pager Normal [facility] PROGRESS HNO ID: [id number] Author: Bravo Lamb) Ervin Service: Nephrology Author [...] 3 g in NaCl 0.9% 100 mL MB+/ADD-[place] (UNASYN) 3 g INTRAVENOUS q 6 H [...] 7.324 (L) 7.350 - 7.450 Final Specific [place], Ur Date Value Ref Range Status 03/23/2019 [...] US Further w/u of proteinuria per his chain carrier as 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 SIGNATURE: Bravo Mueller MD PATIENT NAME: Mauri Quinones PAGER: [phone] Normal [facility] CASE MANAGEMon 03-31-2019 CASE MANAGEM HNO ID: [id number] Author: Addie (Rn) SULTANA Mcdaniel Service: Care Management Author Type: Registered Nurse Type: Care Mgt Progress Note Filed: 03/31/2019 3:56 PM Note Text: CARE MANAGEMENT PROGRESS NOTE SERVICE DATE: 03/31/2019 SERVICE TIME: 3:54 PM LOS: 7 days Met with patient and family at the bed side. They are requesting [facility] rehab. Referral placed. Patients insurance changed on 03/27/2019 no longer [place] but now [employer]. Letter that the had was copied and sent to admitting and . SIGNATURE: Addie Mcdaniel RN PATIENT NAME: Mauri Quinones DATE: March 31, 2019 TIME: 3:54 PM PAGER/CONTACT #: [phone] [facility] CONSULT PROGon 03-31-2019 CONSULT PROG HNO ID: [id number] Author: Mohsen Castellanos Service: Infectious Disease Author [...] 3 g in NaCl 0.9% 100 mL MB+/ADD-[place] (UNASYN) 3 g INTRAVENOUS q 6 H [...] complication, with long-term current use of insulin ([facility]) POA: Yes Assessment AND Plan: UTI (urinary tract infection) POA: Unknown Assessment AND Plan: E faecalis. Possibly aggravated by urinary retention? Continue unasyn. Chronic combined systolic and diastolic CHF (congestive heart failure) ([facility]) POA: Yes Assessment AND Plan: Possible pneumonia LLL- continue unasyn. Check repeat cbc in am. GARRET (acute kidney injury) ([facility]) POA: Yes Assessment AND Plan: CKD (chronic kidney disease) stage 3, GFR 30-59 ml/min ([facility]) POA: Yes Assessment AND Plan: Delirium POA: Yes Assessment AND Plan: attributed to infection, improving today. If he continues to improve, will change unasyn to po augmentin tomorrow. Resolved Problems: * No resolved hospital problems. * SIGNATURE: Mohsen Castellanos MD PATIENT NAME: Mauri Quinones DATE: March 31, 2019 TIME: 1:05 PM PAGER/CONTACT #: [phone] Normal [facility] CONSULT PROG HNO ID: [id number] Author: Kiera Gonzalez Service: Endocrinology Author Type: [...] 3 g in NaCl 0.9% 100 mL MB+/ADD-[place] (UNASYN) 3 g INTRAVENOUS q 6 H [...] complication, with long-term current use of insulin ([facility]) POA: Yes Assessment AND Plan: 12-15 ears [...] management seeing pt GARRET (acute kidney injury) ([facility]) POA: Yes Assessment AND Plan: creat 1.81(1.70)(1.77)(1.86)(2.0 9)(2.33)(2.47); baseline 1.54; per renal CKD (chronic kidney disease) stage 3, GFR 30-59 ml/min ([facility]) POA: Yes Assessment AND Plan: creat 1.54 in 07/2018 Arteriosclerotic heart disease (ASHD) POA: Yes Assessment AND Plan: hx Hypertension, essential POA: Yes Assessment AND Plan: per caprice UTI (urinary tract infection) POA: Unknown Assessment AND Plan: on A/B Chronic combined systolic and diastolic CHF (congestive heart failure) ([facility]) POA: Yes Assessment AND Plan: hx SIGNATURE: Kiera Gonzalez MD PATIENT NAME: Mauri Quinones DATE: March 31, 2019 TIME: 9:35 AM PAGER: [phone] [facility] PROGRESSon 03-31-2019 PROGRESS HNO ID: [id number] Author: Bravo Lamb) Ervin Service: Nephrology Author [...] 3 g in NaCl 0.9% 100 mL MB+/ADD-[place] (UNASYN) 3 g INTRAVENOUS q 6 H [...] 7.324 (L) 7.350 - 7.450 Final Specific [place], Ur Date Value Ref Range Status 03/23/2019 [...] Mueller MD PATIENT NAME: Mauri Quinones PAGER: [phone] Normal [facility] PROGRESS HNO ID: [id number] Author: Ra Alcala Service: Hospital Medicine Author Type: Physician Type: Progress Notes Filed: 03/31/2019 11:09 AM Note Text: DEPARTMENT OF HOSPITAL MEDICINE PROGRESS NOTE SERVICE DATE: 03/31/2019 SERVICE TIME: 11:07 AM Hospital Medicine/Primary Attending: Ra Alcala MD NIGHT AND WEEKEND COVERAGE: After 7pm please page [phone] SUBJECTIVE: F/u UTI. No CP SOB NVD, [...] 3 g in NaCl 0.9% 100 mL MB+/ADD-[place] (UNASYN) 3 g INTRAVENOUS q 6 H DATA: Diagnostic tests reviewed for today's visit: CBC: No results for input(s): WBC, RBC, HB, HCT, PLT, MCV, MCH, MPV, RDW in the last 24 hours. Coags: No results for input(s): INR, APTT in the last 24 hours. Invalid input(s): PT BMP: Recent Labs 03/31/19 0314 NA 136 K 5.2* CHLOR 106 CO2 23 BUN 69* CREAT 1.81* GLUC 101* CMP: Recent Labs 03/31/19 0314 NA 136 K 5.2* CHLOR 106 CO2 23 BUN 69* CREAT 1.81* GLUC 101* CA 8.4* ANION 12 Cardiac Enzymes: No results for input(s): CK, MB, CKMB, TROPT in the last 24 hours. Liver Function, Amylase, Lipase: Recent Labs 03/31/19 0314 ALB 1.4* MG/PHOS: Recent Labs 03/31/19 0314 P 4.6 Renal Panel: Recent Labs 03/31/19 0314 CREAT 1.81* BUN 69* GLUC 101* CA [...] 11:07 AM PAGER/CONTACT #: My Pager Normal [facility] Renal Panelon 03-31-2019 Creatinine [Mass/Vol] 1.81 mg/dL High 0.67-1.17 [facility] Comment on above: Performed By: #### E RTRP #### [facility] [address] [place] [address] Phosphate [Mass/Vol] 4.6 mg/dL Normal 2.5-4.9 [facility] Comment on above: Performed By: #### E RTRP #### [facility] [address] [place], [place] [address] Albumin [Mass/Vol] 1.4 g/dL Low 3.4-5.0 [facility] Comment on above: Performed By: #### E RTRP #### [facility] [address] [place], [place] [address] Anion gap [Moles/Vol] 12 mmol/L Normal 8-16 [facility] Comment on above: Performed By: #### E RTRP #### [facility] [address] [place], [place] [address] CO2 [Moles/Vol] 23 mmol/L Normal 21-32 [facility] Comment on above: Performed By: #### E RTRP #### [facility] [address] [place], [place] [address] Glucose [Mass/Vol] 101 mg/dL High 70-99 [facility] Comment on above: Performed By: #### E RTRP #### [facility] [address] [place], [place] [address] Urea nitrogen [Mass/Vol] 69 mg/dL High 7-18 [facility] Comment on above: Performed By: #### E RTRP #### [facility] [address] [place], [place] [address] Calcium [Mass/Vol] 8.4 mg/dL Low 8.5-10.1 [facility] Comment on above: Performed By: #### E RTRP #### [facility] [address] [place], [place] [address] Chloride [Moles/Vol] 106 mmol/L Normal 98-107 [facility] Comment on above: Performed By: #### E RTRP #### [facility] [address] [place], [place] [address] Potassium [Moles/Vol] 5.2 mmol/L High 3.5-5.1 [facility] Comment on above: Performed By: #### E RTRP #### [facility] [address] [place], [place] [address] Sodium [Moles/Vol] 136 mmol/L Normal 136-145 [facility] Comment on above: Performed By: #### E RTRP #### [facility] [address] [place], [place] [address] THERAPY NTon 03-31-2019 THERAPY NT HNO ID: [id number] Author: Erica Barrera/Savanna Ho OT Service: Occupational Therapy Author Type: Occupational Therapist Type: Therapy (PT/OT/Speech/Resp) Filed: 03/31/2019 11:58 AM Note Text: Occupational Therapy Treatment SERVICE DATE: 03/31/2019 SERVICE TIME: 1126 to 1142 ROOM: [place] [address] Recommended Discharge Disposition: Acute Rehab Recommended Discharge [...] daily living (ADL) Interventions Provided: Therapeutic Activity (49111) Therapeutic Activity (05204) Treatment Minutes: 16 1 unit Skilled Intervention(s): [...] March 31, 2019 TIME: 11:51 AM Normal [facility] THERAPY NT HNO ID: [id number] Author: Elizabeth Brown Service: Physical Therapy Author Type: Mercantile Reporter Type: Therapy (PT/OT/Speech/Resp) Filed: 03/31/2019 9:20 AM Note Text: -- Attestation signed by Vinny (Pt) JD Benitez at 03/31/2019 4:28 PM I reviewed and agree with the documentation corresponding to this therapy visit. SIGNATURE: Vinny Benitez PT DATE: March 31, 2019 TIME: 4:28 PM -- Physical Therapy Treatment SERVICE DATE: 03/31/2019 SERVICE TIME: 0835 to 0900 ROOM: [id number] Recommended Discharge Disposition: Acute Rehab Recommended Discharge [...] Patient;Family TREATMENT INTERVENTIONS: Interventions Provided: Therapeutic Exercise (23660);Therapeutic Activity (46790) Therapeutic Exercise (60714) Treatment Minutes: 13 1 unit Skilled Intervention(s): Instruction in therapeutic exercise for both legs: ankle pump, quad set, glute set, adductor set, hip abduction/adduction, heel slide, short arc quad, and long arc quad x 12 reps with min assist with hip abduction and heel slide. Verbal and tactile cuing provided for slower pace and maintain proper alignment. Therapeutic Activity (03860) Treatment Minutes: 12 1 unit Skilled Intervention(s): [...] help with standing. Education with use of [place] cervical collar, how to don/doff. Patient requires [...] March 31, 2019 TIME: 9:11 AM Normal [facility] CONSULT PROGon 03-30-2019 CONSULT PROG HNO ID: [id number] Author: Kavitha Fofana Service: Endocrinology Author Type: [...] management seeing pt GARRET (acute kidney injury) ([facility]) POA: Yes Assessment AND Plan: creat 1.70(1.77)(1.86)(2.09)(2.3 3)(2.47); baseline 1.54; per renal CKD (chronic kidney disease) stage 3, GFR 30-59 ml/min ([facility]) POA: Yes Assessment AND Plan: creat 1.54 in 07/2018 Arteriosclerotic heart disease (ASHD) POA: Yes Assessment AND Plan: hx Hypertension, essential POA: Yes Assessment AND Plan: per caprice UTI (urinary tract infection) POA: Unknown Assessment AND Plan: on A/B Chronic combined systolic and diastolic CHF (congestive heart failure) ([facility]) POA: Yes Assessment AND Plan: hx SIGNATURE: Kavitha Fofana MD PATIENT NAME: Mauri Quinones DATE: March 30, 2019 TIME: 1:58 PM PAGER: [phone] Normal [facility] Cult and Smr ROSARIO and AERon 0 03-30-2019 Cult and Smr ROSARIO and AER Test performed at [facility] Rare Mixed anaerobic douglas. No Bacteroides fragilis group isolated. No Clostridium perfringens isolated. No organisms seen Few Polymorphonuclear leukocytes Rare Squamous epithelial cells ORGANISM: *Gram Positive Organisms (ID: 1) Rare Mixed skin douglas. ORGANISM: *Kimberlee albicans (ID: 2) Rare Normal [facility] Comment on above: Performed By: #### E RTRP #### [facility] [address] [place] [address] Hemogram/Diffon 03-30-2019 Abs Immature Grans 0.24 thou/cmm High 0.00-0.05 [facility] Comment on above: Performed By: #### E RTRP #### [facility] [address] [place] [address] Abs Neut (ANC) 13.22 thou/cmm High 1.78-5.38 [facility] Comment on above: Performed By: #### E RTRP #### [facility] [address] [place] [address] Abs. Baso 0.06 thou/cmm Normal 0.01-0.08 [facility] Comment on above: Performed By: #### E RTRP #### [place] [address] Abs. Venango 1.63 thou/cmm High 0.30-0.82 [facility] Comment on above: Performed By: #### E RTRP #### [place] [address] Basophils/100 WBC (Bld) 0.4 % Normal [facility] Comment on above: Performed By: #### E RTRP #### [place] [address] Eosinophils (Bld) [#/Vol] 0.18 thou/cmm Normal 0.04-0.54 [facility] Comment on above: Performed By: #### E RTRP #### [place] [address] Eosinophils/100 WBC (Bld) 1.1 % Normal [facility] Comment on above: Performed By: #### E RTRP #### [facility] [address] [place] [address] Immature Grans 1.50 % Normal [facility] Comment on above: Performed By: #### E RTRP #### [place] [address] Lymphocytes (Bld) [#/Vol] 0.77 thou/cmm Low 0.84-2.85 [facility] Comment on above: Performed By: #### E RTRP #### [facility] [address] [place], [place] [address] Lymphocytes/100 WBC (Bld) 4.8 % Normal [facility] Comment on above: Performed By: #### E RTRP #### [facility] [address] [place], [place] [address] Monocytes/100 WBC (Bld) 10.1 % Normal [facility] Comment on above: Performed By: #### E RTRP #### [facility] [address] [place], [place] [address] Seg Neutrophil 82.1 % Normal [facility] Comment on above: Performed By: #### E RTRP #### [facility] [address] [place] [address] Erythrocyte distribution width (RBC) [Ratio] 14.0 % Normal 11.6-14.4 [facility] Comment on above: Performed By: #### E RTRP #### [facility] [address] [place] [address] Hematocrit (Bld) [Volume fraction] 30.5 % Low 40.1-51.0 [facility] Comment on above: Performed By: #### E RTRP #### [facility] [address] [place] [address] Hemoglobin (Bld) [Mass/Vol] 9.3 g/dL Low 13.7-17.5 [facility] Comment on above: Performed By: #### E RTRP #### [facility] [address] [place] [address] MCH (RBC) [Entitic mass] 29.2 pg Normal 25.7-32.2 [facility] Comment on above: Performed By: #### E RTRP #### [facility] [address] [place], [place] [address] MCHC (RBC) [Mass/Vol] 30.5 % Low 32.3-36.5 [facility] Comment on above: Performed By: #### E RTRP #### [facility] [address] [place], [place] [address] MCV (RBC) [Entitic vol] 95.6 fL Normal 83.2-95.6 [facility] Comment on above: Performed By: #### E RTRP #### [facility] [address] [place], [place] [address] Platelet mean volume (Bld) [Entitic vol] 9.0 fL Normal 8.7-12.0 [facility] Comment on above: Performed By: #### E RTRP #### [facility] [address] [place], [place] [address] Platelets (Bld) [#/Vol] 410 thou/cmm High 141-365 [facility] Comment on above: Performed By: #### E RTRP #### [facility] [address] [place] [address] RBC (Bld) [#/Vol] 3.19 mil/cmm Low 4.63-6.08 [facility] Comment on above: Performed By: #### E RTRP #### [facility] [address] [place] [address] RDW SD 48.9 fl High 36.1-45.8 [facility] Comment on above: Performed By: #### E RTRP #### [facility] [address] [place] [id number] WBC (Bld) [#/Vol] 16.10 thou/cmm High 4.23-9.07 [facility] Comment on above: Performed By: #### E RTRP #### [facility] [address] [place] [address] PROGRESSon 03-30-2019 PROGRESS HNO ID: [id number] Author: Cirilo Vitale III Service: Infectious Disease [...] 30, 2019 TIME: 4:44 PM PAGER/CONTACT #: [phone] . Normal [facility] PROGRESS HNO ID: [id number] Author: Ra Alcala Service: Hospital Medicine Author Type: Physician Type: Progress Notes Filed: 03/30/2019 1:00 PM Note Text: DEPARTMENT OF HOSPITAL MEDICINE PROGRESS NOTE SERVICE DATE: 03/30/2019 SERVICE TIME: 12:53 PM Hospital Medicine/Primary Attending: Ra Alcala MD NIGHT AND WEEKEND COVERAGE: After 7pm please page [phone] SUBJECTIVE: F/u AMS. No CP SOB NVD. [...] TIME: 12:53 PM PAGER/CONTACT #: My Pager [facility] PROGRESS HNO ID: [id number] Author: Rj Anderson Service: Nephrology Author Type: [...] 1.25 g INTRAVENOUS q 24 HR Ra Simeon Alcala Last Rate: 125 mL/hr at 03/29/19 [...] BID Dante Myers 2 mg at 03/30/19 08 carvedilol 25 mg tab(s) (COREG) 25 mg ORAL BID w MEALS Dante Myers 25 mg at 03/30/19 0829 latanoprost 0.005 % 1 Drop (XALATAN) 1 Drop BOTH EYES AT BEDTIME Dante Myers 1 Drop at 03/29/19 210 NaCl 0.9% 3-5 mL 3-5 mL INTRAVENOUS q 12 H aDnte Myers 3 mL at 03/26/19 0832 heparin [...] 3-5 mL INTRAVENOUS q 12 H Vandana (Air Carrier Inspector) Jatin 3 mL at 03/29/19 210 aluminum-magnesium hydroxide-simethicone 200-200-20 mg/5 mL 30 mL (MAALOX,MYLANTA,MAG-AL PLUS) 30 mL ORAL DAILY PRN Vandana (Air Carrier Inspector) Jatin docusate sodium 100 mg cap(s) (COLACE) 100 mg ORAL BID PRN Vandana (Air Carrier Inspector) Jatin ipratropium-albuterol 3 mL nebulizer solution (DUONEB) 3 mL INHALATION q 4 H PRN Vandana (Air Carrier Inspector) Jatin insulin lispro pen (rapid acting) (HumaLOG KWIKPEN) SUBCUTANEOUS w MEALS Kiera Midha 1 Units at 03/30/19 0830 calcium acetate 667 mg tab(s) (CALPHRON) 667 mg ORAL TID w MEALS Donavan (Res) MD Nahomi 667 mg at 03/30/19 0828 insulin detemir U-100 15 Units injection (long acting) (LEVEMIR) 15 Units SUBCUTANEOUS DAILY (8 AM) Kiera Midha 15 Units at 03/30/19 0830 No current [facility]-ordered outpatient medications on file. Vitals: BP [...] prior to admission when he presented to [place] [facility] . Pt was given Kayexalate at that time. Some increase of K today-likely hemolysis. However, will recheck K since he is on LR. Avoid ACEI/ARB for now-see above. ?4- Hyperphosphatemia: On Phoslo 667 mg one with each meal. Ca/P are acceptable. ? ?5- UTI: Enterococcal. ID following. On vancomycin. Please do not hesitate to contact me at [phone] if there is any question or concern. Lauren Mcintyre MD (Rj Anderson) Normal [facility] PROGRESS HNO ID: [id number] Author: Cirilo Vitale III Service: Infectious Disease Author Type: Physician Type: Progress Notes Filed: 03/30/2019 9:27 AM Note Text: INFECTIOUS DISEASE PROGRESS NOTE March 30, 2019 9:20 AM F/u Enterococcal UTI RN reports mental status improving today Patient able to say it is 2018. When asked other orientation questions he kept saying 2018, but upon redirection able to answer these Month=september Location=[facility] Review of Systems Has neck pain. [...] (MIRALAX, GLYCOLAX) 17 g ORAL DAILY Mariela Irby 17 g at 03/30/19828 - gabapentin 200 [...] 3-5 mL INTRAVENOUS q 12 H Vandana (Air Carrier Inspector) Jatin 3 mL at 03/29/192104 - aluminum-magnesium hydroxide-simethicone 200-200-20 mg/5 mL 30 mL (MAALOX,MYLANTA,MAG-AL PLUS) 30 mL ORAL DAILY PRN Vandana (Air Carrier Inspector) Jatin - docusate sodium 100 mg cap(s) (COLACE) 100 mg ORAL BID PRN Vandana (Air Carrier Inspector) Jatin - ipratropium-albuterol 3 mL nebulizer solution (DUONEB) 3 mL INHALATION q 4 H PRN Vandana (Air Carrier Inspector) Jatin - insulin lispro pen (rapid acting) [...] 30, 2019 TIME: 9:20 AM PAGER/CONTACT #: [phone] Normal [facility] Potassium Bloodon 03-30-2019 Potassium [Moles/Vol] 4.9 mmol/L Normal 3.5-5.1 [facility] Comment on above: Performed By: #### E RTRP #### [facility] [address] [place] [address] Renal Panelon 03-30-2019 Creatinine [Mass/Vol] 1.70 mg/dL High 0.67-1.17 [facility] Comment on above: Performed By: #### E RTRP #### [facility] [address] [place], [place] [address] Anion gap [Moles/Vol] 14 mmol/L Normal 8-16 [facility] Comment on above: Performed By: #### E RTRP #### [address] [address] Potassium [Moles/Vol] 5.7 mmol/L High 3.5-5.1 [facility] Comment on above: Result Comment: SPEC IMEN SLIGHTLY HEMOLYZED Performed By: #### E RTRP #### [facility] [address] [place] [address] Phosphate [Mass/Vol] 4.7 mg/dL Normal 2.5-4.9 [facility] Comment on above: Performed By: #### E RTRP #### [facility] [address] [place], [place] [address] CO2 [Moles/Vol] 21 mmol/L Normal 21-32 [facility] Comment on above: Performed By: #### E RTRP #### [facility] [address] [place], [place] [address] Albumin [Mass/Vol] 1.4 g/dL Low 3.4-5.0 [facility] Comment on above: Performed By: #### E RTRP #### [facility] [address] [place], [place] [address] Glucose [Mass/Vol] 129 mg/dL High 70-99 [facility] Comment on above: Performed By: #### E RTRP #### [facility] [address] [place], [place] [address] Urea nitrogen [Mass/Vol] 71 mg/dL High 7-18 [facility] Comment on above: Performed By: #### E RTRP #### [facility] [address] [place], [place] [address] Calcium [Mass/Vol] 8.4 mg/dL Low 8.5-10.1 [facility] Comment on above: Performed By: #### E RTRP #### [facility] [address] [place], [place] [address] Chloride [Moles/Vol] 109 mmol/L High 98-107 [facility] Comment on above: Performed By: #### E RTRP #### [facility] [address] [place], [place] [address] Sodium [Moles/Vol] 138 mmol/L Normal 136-145 [facility] Comment on above: Performed By: #### E RTRP #### [facility] [address] [place], [place] [address] Ammoniaon 03-29-2019 Ammonia (P) [Mass/Vol] 27 umol/L Normal 11-32 [facility] Comment on above: Performed By: #### E RTRP #### [address] [address] Basic Panelon 03-29-2019 Creatinine [Mass/Vol] 1.77 mg/dL High 0.67-1.17 [facility] Comment on above: Performed By: #### G FR #### [facility] [address] [place], [place] [address] Anion gap [Moles/Vol] 10 mmol/L Normal 8-16 [facility] Comment on above: Performed By: #### G FR #### [facility] [address] [place], [place] [address] CO2 [Moles/Vol] 24 mmol/L Normal 21-32 [facility] Comment on above: Performed By: #### G FR #### [facility] [address] [place], [place] [address] Glucose [Mass/Vol] 120 mg/dL High 70-99 [facility] Comment on above: Performed By: #### G FR #### [facility] [address] [place], [place] [address] Urea nitrogen [Mass/Vol] 76 mg/dL High 7-18 [facility] Comment on above: Performed By: #### G FR #### [facility] [address] [place], [place] [address] Calcium [Mass/Vol] 8.7 mg/dL Normal 8.5-10.1 [facility] Comment on above: Performed By: #### G FR #### [facility] [address] [place], [place] [address] Chloride [Moles/Vol] 110 mmol/L High 98-107 [facility] Comment on above: Performed By: #### G FR #### [facility] [address] [place], [place] [address] Potassium [Moles/Vol] 4.8 mmol/L Normal 3.5-5.1 [facility] Comment on above: Performed By: #### G FR #### [facility] [address] [place], [place] [address] Sodium [Moles/Vol] 139 mmol/L Normal 136-145 [facility] Comment on above: Performed By: #### G FR #### [address] [address] CASE MANAGEMon 03-29-2019 CASE MANAGEM HNO ID: [id number] Author: Radha (Rn) SULTANA Harris Service: ? Author Type: Registered Nurse Type: Care Mgt Progress Note Filed: 03/29/2019 10:55 AM Note Text: CARE MANAGEMENT PROGRESS NOTE SERVICE DATE: 03/29/2019 SERVICE TIME: 1054 LOS: 5 days Needs Prior to Discharge: IV Antibiotics Awaiting final antibiotic recommendations. Awaiting final sensitivities. Not likely to dc today. Set up with [facility] and [facility] pharmacy when final antibiotics known. SIGNATURE: Radha Harris RN PATIENT NAME: Mauri Quinones DATE: March 29, 2019 TIME: 10:54 AM PAGER/CONTACT #: [phone] [facility] CONSULT PROGon 03-29-2019 CONSULT PROG HNO ID: [id number] Author: Kavitha Fofana Service: Endocrinology Author Type: [...] management seeing pt GARRET (acute kidney injury) ([facility]) POA: Yes Assessment AND Plan: creat 1.77(1.86)(2.09)(2.33)(2.4 7); baseline 1.54; per renal CKD (chronic kidney disease) stage 3, GFR 30-59 ml/min ([facility]) POA: Yes Assessment AND Plan: creat 1.54 in 07/2018 Arteriosclerotic heart disease (ASHD) POA: Yes Assessment AND Plan: hx Hypertension, essential POA: Yes Assessment AND Plan: per caprice UTI (urinary tract infection) POA: Unknown Assessment AND Plan: on A/B Chronic combined systolic and diastolic CHF (congestive heart failure) ([facility]) POA: Yes Assessment AND Plan: hx SIGNATURE: Kavitha Fofana MD PATIENT NAME: Mauri Quinones DATE: March 29, 2019 TIME: 1:58 PM PAGER: [phone] Normal [facility] Hemogram/Diffon 03-29-2019 Abs Immature Grans 0.12 thou/cmm High 0.00-0.05 [facility] Comment on above: Performed By: #### G FR #### [place] [address] Abs Neut (ANC) 12.13 thou/cmm High 1.78-5.38 [facility] Comment on above: Performed By: #### G FR #### [place] [address] Abs. Baso 0.04 thou/cmm Normal 0.01-0.08 [facility] Comment on above: Result Comment: Smea r scanned; tech agrees with automated differential Performed By: #### G FR #### [place] [address] Abs. Venango 1.48 thou/cmm High 0.30-0.82 [facility] Comment on above: Performed By: #### G FR #### [place] [address] Basophils/100 WBC (Bld) 0.3 % Normal [facility] Comment on above: Performed By: #### G FR #### [facility] [address] [place], [place] [address] Eosinophils (Bld) [#/Vol] 0.16 thou/cmm Normal 0.04-0.54 [facility] Comment on above: Performed By: #### G FR #### [facility] [address] [place], [place] [address] Eosinophils/100 WBC (Bld) 1.1 % Normal [facility] Comment on above: Performed By: #### G FR #### [facility] [address] [place], [place] [address] Immature Grans 0.80 % Normal [facility] Comment on above: Performed By: #### G FR #### [facility] [address] [place], [place] [address] Lymphocytes (Bld) [#/Vol] 0.76 thou/cmm Low 0.84-2.85 [facility] Comment on above: Performed By: #### G FR #### [facility] [address] [place], [place] [address] Lymphocytes/100 WBC (Bld) 5.2 % Normal [facility] Comment on above: Performed By: #### G FR #### [facility] [address] [place], [place] [address] Monocytes/100 WBC (Bld) 10.1 % Normal [facility] Comment on above: Performed By: #### G FR #### [facility] [address] [place], [place] [address] Seg Neutrophil 82.5 % Normal [facility] Comment on above: Performed By: #### G FR #### [facility] [address] [place], [place] [address] Erythrocyte distribution width (RBC) [Ratio] 13.7 % Normal 11.6-14.4 [facility] Comment on above: Performed By: #### G FR #### [facility] [address] [place], [place] [address] Hematocrit (Bld) [Volume fraction] 30.9 % Low 40.1-51.0 [facility] Comment on above: Performed By: #### G FR #### [facility] [address] [place] [address] Hemoglobin (Bld) [Mass/Vol] 9.7 g/dL Low 13.7-17.5 [facility] Comment on above: Performed By: #### G FR #### [facility] [address] [place] [address] MCH (RBC) [Entitic mass] 29.3 pg Normal 25.7-32.2 [facility] Comment on above: Performed By: #### G FR #### [facility] [address] [place] [address] MCHC (RBC) [Mass/Vol] 31.4 % Low 32.3-36.5 [facility] Comment on above: Performed By: #### G FR #### [facility] [address] [place] [address] MCV (RBC) [Entitic vol] 93.4 fL Normal 83.2-95.6 [facility] Comment on above: Performed By: #### G FR #### [facility] [address] [place] [address] Platelet mean volume (Bld) [Entitic vol] 8.6 fL Low 8.7-12.0 [facility] Comment on above: Performed By: #### G FR #### [facility] [address] [place] [address] Platelets (Bld) [#/Vol] 401 thou/cmm High 141-365 [facility] Comment on above: Performed By: #### G FR #### [facility] [address] [place] [address] RBC (Bld) [#/Vol] 3.31 mil/cmm Low 4.63-6.08 [facility] Comment on above: Performed By: #### G FR #### [facility] [address] [place] [address] RDW SD 46.5 fl High 36.1-45.8 [facility] Comment on above: Performed By: #### G FR #### [facility] [address] [place], [place] [address] WBC (Bld) [#/Vol] 14.70 thou/cmm High 4.23-9.07 [facility] Comment on above: Performed By: #### G FR #### [facility] [address] [place], [place] [address] PROGRESSon 03-29-2019 PROGRESS HNO ID: [id number] Author: Rj Anderson Service: Nephrology Author Type: [...] 3-5 mL INTRAVENOUS q 12 H Vandana (Air Carrier Inspector) Jatin 3 mL at 03/29/19 0849 aluminum-magnesium hydroxide-simethicone 200-200-20 mg/5 mL 30 mL (MAALOX,MYLANTA,MAG-AL PLUS) 30 mL ORAL DAILY PRN Vandana (Air Carrier Inspector) Jatin docusate sodium 100 mg cap(s) (COLACE) 100 mg ORAL BID PRN Vandana (Air Carrier Inspector) Jatin ipratropium-albuterol 3 mL nebulizer solution (DUONEB) 3 mL INHALATION q 4 H PRN Vandana (Air Carrier Inspector) Jatin insulin lispro pen (rapid acting) (HumaLOG KWIKPEN) SUBCUTANEOUS w MEALS Kiera Midha 3 Units at 03/29/19 0850 calcium acetate 667 mg tab(s) (CALPHRON) 667 mg ORAL TID w MEALS Donavan (Res) MD Nahmoi 667 mg at 03/29/19 0846 insulin detemir U-100 15 Units injection (long acting) (LEVEMIR) 15 Units SUBCUTANEOUS DAILY (8 AM) Kiera Midha 15 Units at 03/29/19 0847 No current [facility]-ordered outpatient medications on file. Vitals: BP [...] days prior to admission when he visited [place] [facility] . Pt was given Kayexalate. K is stable since admit. Avoid ACEI/ARB for now-see above. 4- Hyperphosphatemia: On Phoslo 667 mg one with each meal. Recheck P in am. 5- UTI: Enterococcal. ID following. On vancomycin. Please do not hesitate to contact me at [phone] if there is any question or concern. Lauren Mcintyre MD (Rj Anderson) [facility] PROGRESS HNO ID: [id number] Author: Dakota Mathias Service: Hospital Medicine Author [...] -- 03/24/19 0945 activity - mobilize patient (co,or) 03/24/19 0245 pneumatic compression stockings (co,or) 03/24/19 0245 activity - mobilize patient ([place]) VTE Prophylaxis: VTE prophylaxis appropriate Disposition: Home with [facility] Plan of care discussed with: Patient, Family/Significant Other: son and RN SIGNATURE: Dakota Mathias MD PATIENT NAME: Mauri Quinones DATE: March 29, 2019 TIME: 1:34 PM PAGER: [phone] Normal [facility] PROGRESS HNO ID: [id number] Author: Cirilo Vitale III Service: Infectious Disease [...] Mariela Schaef 40 mg at 03/28/19 2024 - aspirin 81 mg chewable tab(s) 81 mg ORAL DAILY Mariela Schaef 81 mg at 03/29/19 0900 - polyethylene glycol 3350 17 g packet (MIRALAX, GLYCOLAX) 17 g ORAL DAILY Mariela Irby 17 g at 03/29/19 0848 - gabapentin [...] 3-5 mL INTRAVENOUS q 12 H Vandana (Air Carrier Inspector) Jatin 3 mL at 03/29/19 0849 - aluminum-magnesium hydroxide-simethicone 200-200-20 mg/5 mL 30 mL (MAALOX,MYLANTA,MAG-AL PLUS) 30 mL ORAL DAILY PRN Vandana (Air Carrier Inspector) Jatin - docusate sodium 100 mg cap(s) (COLACE) 100 mg ORAL BID PRN Vandana (Air Carrier Inspector) Jatin - ipratropium-albuterol 3 mL nebulizer solution (DUONEB) 3 mL INHALATION q 4 H PRN Vandana (Air Carrier Inspector) Jatin - insulin lispro pen (rapid acting) [...] 29, 2019 TIME: 11:49 AM PAGER/CONTACT #: [phone] Normal [facility] THERAPY NTon 03-29-2019 THERAPY NT HNO ID: [id number] Author: Isabela (Pt) Flori Service: Physical Therapy Author Type: Physical Therapist Type: Therapy (PT/OT/Speech/Resp) Filed: 03/29/2019 11:19 AM Note Text: Physical Therapy Treatment (re-evaluation) SERVICE DATE: 03/29/2019 SERVICE TIME: 1030 to 1055 ROOM: [place] [address] Recommended Discharge Disposition: Acute rehab Recommended Discharge [...] Patient;Family TREATMENT INTERVENTIONS: Interventions Provided: Therapeutic Activity (05695);Re-evaluation $ Reevaluation (56907) Billed Units: 1 unit Reviewed chart, updated goals, POC and D/C rec as needed Therapeutic Activity (83504) Treatment Minutes: 15 1 unit Skilled Intervention(s): Educated pt and son Hebert on role of PT in acute care--discussed change in POC, goals and D/C rec--rec acute rehab at [facility] Educated on safety and fall prevention--use call [...] March 29, 2019 TIME: 11:07 AM Normal [facility] TSH, 3rd generationon 2018 TSH, 3rd generation 2.590 uIU/mL Normal 0.358-3.740 [facility] Comment on above: Performed By: #### E RTRP #### [place] [address] Basic Panelon 03-28-2019 Creatinine [Mass/Vol] 1.86 mg/dL High 0.67-1.17 [facility] Comment on above: Performed By: #### G FR #### [facility] [address] [place] [address] Anion gap [Moles/Vol] 12 mmol/L Normal 8-16 [facility] Comment on above: Performed By: #### G FR #### [facility] [address] [place] [address] CO2 [Moles/Vol] 21 mmol/L Normal 21-32 [facility] Comment on above: Performed By: #### G FR #### [facility] [address] [place], [place] [address] Glucose [Mass/Vol] 114 mg/dL High 70-99 [facility] Comment on above: Performed By: #### G FR #### [facility] [address] [place], [place] [address] Urea nitrogen [Mass/Vol] 72 mg/dL High 7-18 [facility] Comment on above: Performed By: #### G FR #### [facility] [address] [place], [place] [address] Calcium [Mass/Vol] 9.1 mg/dL Normal 8.5-10.1 [facility] Comment on above: Performed By: #### G FR #### [facility] [address] [place], [place] [address] Chloride [Moles/Vol] 109 mmol/L High 98-107 [facility] Comment on above: Performed By: #### G FR #### [facility] [address] [place], [place] [address] Potassium [Moles/Vol] 4.9 mmol/L Normal 3.5-5.1 [facility] Comment on above: Performed By: #### G FR #### [facility] [address] [place], [place] [address] Sodium [Moles/Vol] 137 mmol/L Normal 136-145 [facility] Comment on above: Performed By: #### G FR #### [facility] [address] [place], [place] [address] CONSULTon 03-28-2019 CONSULT HNO ID: [id number] Author: Cirilo Vitale III Service: Infectious Disease [...] Diagnosis Date - GARRET (acute kidney injury) ([facility]) 03/24/2019 - Ankylosing spondylitis ([facility]) - CAD (coronary artery disease) - Cellulitis - Chronic combined systolic and diastolic CHF (congestive heart failure) ([facility]) 03/24/2019 - CKD (chronic kidney disease) stage 3, GFR 30-59 ml/min ([facility]) 03/24/2019 - Constipation - Diabetes ([facility]) - Gout - High phosphate levels 03/24/2019 - Hx of fracture multiple bones - Hyperkalemia 03/24/2019 - Hypoalbuminemia 03/24/2019 - Hyponatremia 03/24/2019 - Hypoxia 03/24/2019 - NSTEMI (non-ST elevated myocardial infarction) ([facility]) 03/12/2017 [facility] admit - Osteoarthritis FAMILY HISTORY Problem [...] file Gets together: Not on file Attends yazdanism service: Not on file Active member of [...] 9a/5p Bravo Lamb) Ervin 40 mg at 03/28/191711 - hydrALAZINE 50 mg tab(s) (APRESOLINE) 50 [...] w MEALS Dante Myers 25 mg at 03/28/191711 - latanoprost 0.005 % 1 Drop (XALATAN) [...] 3-5 mL INTRAVENOUS q 12 H Vandana (Air Carrier Inspector) Jatin 3 mL at 03/28/192024 - aluminum-magnesium hydroxide-simethicone 200-200-20 mg/5 mL 30 mL (MAALOX,MYLANTA,MAG-AL PLUS) 30 mL ORAL DAILY PRN Vandana (Air Carrier Inspector) Jatin - docusate sodium 100 mg cap(s) (COLACE) 100 mg ORAL BID PRN Vandana (Air Carrier Inspector) Jatin - ipratropium-albuterol 3 mL nebulizer solution (DUONEB) 3 mL INHALATION q 4 H PRN Vandana (Air Carrier Inspector) Jatin - insulin lispro pen (rapid acting) (HumaLOG KWIKPEN) SUBCUTANEOUS w MEALS Kiera Midha 1 Units at 03/25/19 1139 - calcium acetate 667 mg tab(s) (CALPHRON) 667 mg ORAL TID w MEALS Donavan (Res) MD Nahomi 667 mg at 03/28/19 1712 - insulin detemir U-100 15 Units injection (long acting) (LEVEMIR) 15 Units SUBCUTANEOUS DAILY (8 AM) Kiera Gonzalez 15 Units at 03/28/19 1116 ACTIVE PROBLEM LIST Uncontrolled Type 2 Diabetes Mellitus Without Complication, With Long-Term Current Use of Insulin (Hcc) Bilateral Low Back Pain Without Sciatica Chronic Constipation 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 Arteriosclerotic Heart Disease (Ashd) Glaucoma Suspect of Left Eye Hypertension, Essential Lower Leg Edema Chronic Left Hip Pain Anemia of Chronic Renal Failure, Stage 3 (Moderate) ([facility]) Acute On Chronic Diastolic Congestive Heart Failure (Hcc) Recurrent Right Pleural Effusion Pvd (Peripheral Vascular Disease) ([facility]) Altered Mental Status Uti (Urinary Tract Infection) Chronic Combined Systolic and Diastolic Chf (Congestive Heart Failure) ([facility]) Hyperkalemia Hypoxia Hypoalbuminemia Garret (Acute Kidney Injury) ([facility]) Ckd (Chronic Kidney Disease) Stage 3, Gfr 30-59 Ml/Min ([facility]) High Phosphate Levels Hyponatremia Review of [...] 03/23/2019 5.5 5.0 - 8.0 Final Specific [place], Ur Date Value Ref Range Status 03/23/2019 [...] 28, 2019 TIME: 10:33 PM PAGER/CONTACT #: [phone] [facility] CONSULT PROGon 03-28-2019 CONSULT PROG HNO ID: [id number] Author: Kiera Gonzalez Service: Endocrinology Author Type: [...] management seeing pt GARRET (acute kidney injury) ([facility]) POA: Yes Assessment AND Plan: creat 1.86(2.09)(2.33)(2.47); baseline 1.54; per renal CKD (chronic kidney disease) stage 3, GFR 30-59 ml/min ([facility]) POA: Yes Assessment AND Plan: creat 1.54 in 07/2018 Arteriosclerotic heart disease (ASHD) POA: Yes Assessment AND Plan: hx Hypertension, essential POA: Yes Assessment AND Plan: per caprice UTI (urinary tract infection) POA: Unknown Assessment AND Plan: on A/B Chronic combined systolic and diastolic CHF (congestive heart failure) ([facility]) POA: Yes Assessment AND Plan: hx Dr Fofana #[id number] will cover on 03/29 and 03/30. SIGNATURE: Kiera Gonzalez MD PATIENT NAME: Mauri Quinones DATE: March 28, 2019 TIME: 7:42 AM PAGER: [phone] Normal [facility] Cult Urineon 03-28-2019 Cult Urine Test performed at [facility] No growth <1,000 CFU/ml. Normal [facility] Comment on above: Performed By: #### G FR #### [facility] [address] [place], [place] [address] Lactic Acidon 03-28-2019 Lactate [Moles/Vol] 0.6 mmol/L Normal 0.4-2.0 [facility] Comment on above: Performed By: #### G FR #### [facility] [address] [place], [place] [address] PROGRESSon 03-28-2019 PROGRESS HNO ID: [id number] Author: Ra Alcala Service: Hospital Medicine Author Type: Physician Type: Progress Notes Filed: 03/28/2019 2:22 PM Note Text: DEPARTMENT OF HOSPITAL MEDICINE PROGRESS NOTE SERVICE DATE: 03/28/2019 SERVICE TIME: 2:13 PM Hospital Medicine/Primary Attending: Ra Alcala MD NIGHT AND WEEKEND COVERAGE: After 7pm please page [phone] SUBJECTIVE: F/u UTI. No CP SOB NVD. [...] units Sub Q BID Disposition: Home with [facility] and Extended Care Facility Plan of care discussed with: Patient SIGNATURE: Ra Alcala MD PATIENT NAME: Mauri Quinones DATE: March 28, 2019 TIME: 2:13 PM PAGER/CONTACT #: My Pager Normal [facility] PROGRESS HNO ID: [id number] Author: Nati Tong) CHELSI Snyder Service: Neurosurgery Author Type: Physician Hydroponics Worker Type: Progress Notes Filed: 03/28/2019 1:48 PM [...] kg/m? O2 Therapy: Room Air IANDO: Date 03/27/19 07 - 03/28/19 0659 03/28/19 07 - 03/29/19 0659 Shift 1021-2246 9440-0213 9934-9254 24 Hour Total 4755-5090 9178-8532 7954-2003 24 Hour Total INTAKE PO 360 120 [...] diastolic CHF (congestive heart failure) ([facility]) 03/24/2019 - Hyperkalemia 03/24/2019 - Hypoxia 03/24/2019 - Hypoalbuminemia 03/24/2019 - GARRET (acute kidney injury) ([facility]) 03/24/2019 - CKD (chronic kidney disease) stage 3, GFR 30-59 ml/min ([facility]) 03/24/2019 - High phosphate levels 03/24/2019 - Hyponatremia 03/24/2019 - Anemia of chronic renal failure, stage 3 (moderate) ([facility]) 03/05/2018 - Lower leg edema 01/22/2018 Overview [...] 04/10/[address] Pate 03/14/17 discharged [facility]: acute systolic heart failure. 2-D echocardiography performed [...] complication, with long-term current use of insulin ([facility]) 03/21/2016 Overview Note: 09/04/17 glucose 233, BUN [...] March 28, 2019 TIME: 1:44 PM Pager: [phone] Normal [facility] PROGRESS HNO ID: [id number] Author: Song Gutierrez Service: Nephrology Author Type: Nurse Practitioner Type: Progress Notes Filed: 03/28/2019 10:33 AM Note Text: -- Attestation signed by Daniel Mcfadden MD at 03/28/2019 12:03 PM Renal attending: I have seen and examined the patient myself. I agree with CLEANING PORTER Song Gutierrez note in addition the changes [...] days prior to admission when he visited [place] ED . Pt was given Kayexalate. K is wnl Avoid ACEI/ARB. Renal diet 4- Hyperphosphatemia: continue Phoslo 667 mg one with each meal. 5- UTI: On ceftriaxone 1g IV daily Renal team will continue to follow Please call if any question at [phone] Daniel Mcfadden M.D -- Nephrology Progress Note Patient denies CP, SOB, reports stable lower extremity edema. Current Inpatient Medications: Current Facility-Administered Medications Ordered in Epic: insulin lispro 6 Units pen (rapid acting) (HumaLOG KWIKPEN) 6 Units SUBCUTANEOUS w MEALS Kiera Midha 6 Units at 03/27/19 1645 furosemide 40 mg tab(s) (LASIX) 40 mg [...] BID Dante Myers 2 mg at 03/27/19 2030 carvedilol 25 mg tab(s) (COREG) 25 mg ORAL BID w MEALS Dante Soliss 25 mg at 03/27/19 1645 latanoprost 0.005 % 1 Drop (XALATAN) 1 [...] 3-5 mL INTRAVENOUS q 12 H Vandana (Air Carrier Inspector) Jatin 3 mL at 03/27/19 203 aluminum-magnesium hydroxide-simethicone 200-200-20 mg/5 mL 30 mL (MAALOX,MYLANTA,MAG-AL PLUS) 30 mL ORAL DAILY PRN Vandana (Air Carrier Inspector) Jatin docusate sodium 100 mg cap(s) (COLACE) 100 mg ORAL BID PRN Vandana (Air Carrier Inspector) Jatin ipratropium-albuterol 3 mL nebulizer solution (DUONEB) 3 mL INHALATION q 4 H PRN Vandana (Air Carrier Inspector) Jatin insulin lispro pen (rapid acting) (HumaLOG KWIKPEN) SUBCUTANEOUS w MEALS Kiera Midha 1 Units at 03/25/19 1139 calcium acetate 667 mg tab(s) (CALPHRON) 667 mg ORAL TID w MEALS Donavan (Res) MD Nahomi 667 mg at 03/27/19 1645 insulin detemir U-100 15 Units injection (long acting) (LEVEMIR) 15 Units SUBCUTANEOUS DAILY (8 AM) Kiera Midha 15 Units at 03/27/19 0633 No current [facility]-ordered outpatient medications on file. Vitals: BP [...] phoslo monitor phos Avoid nephrotoxins overdiuresis Song Gutierrez APRN-THEATRICAL PERFORMER Normal [facility] THERAPY NTon 03-28-2019 THERAPY NT HNO ID: [id number] Author: Elizabeth Brown Service: Physical Therapy Author Type: Mercantile Reporter Type: Therapy (PT/OT/Speech/Resp) Filed: 03/28/2019 8:40 AM Note Text: -- Attestation signed by Vinny (Pt) JD Benitez at 03/28/2019 3:59 PM I reviewed and agree with the documentation corresponding to this therapy visit. SIGNATURE: Vinny Benitez PT DATE: March 28, 2019 TIME: 3:59 PM -- PHYSICAL THERAPY MISSED VISIT SERVICE DATE: 03/28/2019 SERVICE TIME: 08 to 0834 ROOM: [place] [address] Attempted Treatment. Patient not seen due to Declined. Reports in too much pain. Patient incontinent of bladder, staff notified for hygiene and pain medication. Will continue to attempt as appropriate. SIGNATURE: Elizabeth Brown PTA PATIENT NAME: Mauri Quinones DATE: March 28, 2019 TIME: 8:39 AM [facility] CASE MANAGEMon 03-27-2019 CASE MANAGEM HNO ID: [id number] Author: Dagmar (Rn) SULTANA Chicas Service: ? Author Type: Registered Nurse [...] 27, 2019 TIME: 12:16 PM PAGER/CONTACT #: [phone] [facility] CONSULT PROGon 03-27-2019 CONSULT PROG HNO ID: [id number] Author: Kiera Gonzalez Service: Endocrinology Author Type: [...] Last 24 hr BS reviewed. Recent Labs 03/27/1925 03/27/19 0025 03/26/19200103/26/19 1551 03/26/19 1053 03/26/19 [...] hx ankylosing spondylitis GARRET (acute kidney injury) ([facility]) POA: Yes Assessment AND Plan: creat 2.09(2.33)(2.47); per renal CKD (chronic kidney disease) stage 3, GFR 30-59 ml/min ([facility]) POA: Yes Assessment AND Plan: creat 1.54 in 07/2018 Arteriosclerotic heart disease (ASHD) POA: Yes Assessment AND Plan: hx Hypertension, essential POA: Yes Assessment AND Plan: per caprice UTI (urinary tract infection) POA: Unknown Assessment AND Plan: on A/B Chronic combined systolic and diastolic CHF (congestive heart failure) ([facility]) POA: Yes Assessment AND Plan: hx SIGNATURE: Kiera Gonzalez MD PATIENT NAME: Mauri Quinones DATE: March 27, 2019 TIME: 8:13 AM PAGER: [phone] Normal [facility] PROGRESSon 03-27-2019 PROGRESS HNO ID: [id number] Author: Bravo Mueller Service: Nephrology Author Type: [...] 7.324 (L) 7.350 - 7.450 Final Specific [place], Ur Date Value Ref Range Status 03/23/2019 [...] Mueller MD PATIENT NAME: Mauri Quinones PAGER: [phone] [facility] PROGRESS HNO ID: [id number] Author: Lara Feliciano Service: Pain Management Author Type: Physician Type: Progress Notes Filed: 03/27/2019 9:42 AM Note Text: Mauri Quinones [id number] PAIN MANAGEMENT TEAM PAIN DIAGNOSIS: Neck [...] no bacteria, +mod Hb, + 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 He lives with his and dtr; ambulates with a walker or cane. He does not use tobacco, ETOH or illicit meds. Review of [place] Automated RX Reporting System shows Summary Total Prescriptions: 21 Total Prescribers: 9 Total Pharmacies: 3 Fill Date ID Written Drug Qty Days Prescriber Rx # Pharmacy Refill Daily Dose * Pymt Type FEATHER TRIMMER 03/22/2019 2 03/22/2019 Hydrocodone-Acetamin 5-325 MG 30 4 Ma [address] [id number] [place] (6554) 0 37.50 [facility] [place] 12/04/2018 1 02/04/2018 Gabapentin 300 MG Capsule 180 90 Ma Bar [id number] [place] (8129) 3 [facility] [place] 09/12/2018 1 02/04/2018 Gabapentin 300 MG Capsule 180 90 Ma Bar [id number] [place] (1327) 2 [facility] [place] 09/02/2018 1 08/29/2018 Hydrocodone-Acetamin 5-325 MG 42 7 Mi Lyk [id number] [facility] (1327) 0 30.00 [facility] [place] 08/17/2018 1 08/08/2018 Hydrocodone-Acetamin 5-325 MG 42 7 Ja Gli [id number] [facility] (1327) 0 30.00 [facility] [place] 07/27/2018 1 07/23/2018 Hydrocodone-Acetamin 5-325 MG 42 7 Je Dul [id number] [facility] (1327) 0 30.00 [facility] [...] (LIPITOR) 40 mg ORAL AT BEDTIME Mariela Irby 40 mg at 03/26/192026 - aspirin 81 mg chewable tab(s) 81 mg ORAL DAILY Mariela Diezef 81 mg at 03/27/19 0735 - polyethylene glycol 3350 17 g packet (MIRALAX, GLYCOLAX) 17 g ORAL DAILY Mariela Irby 17 g at 03/25/19 1144 - furosemide [...] PRN Lara K Scantling 5 mg at 03/27/1935 - doxazosin 2 mg tab(s) (CARDURA) 2 [...] 3-5 mL INTRAVENOUS q 12 H Vandana (Air Carrier Inspector) Jatin 3 mL at 03/27/19 0735 - aluminum-magnesium hydroxide-simethicone 200-200-20 mg/5 mL 30 mL (MAALOX,MYLANTA,MAG-AL PLUS) 30 mL ORAL DAILY PRN Vandana (Air Carrier Inspector) Jatin - docusate sodium 100 mg cap(s) (COLACE) 100 mg ORAL BID PRN Vandana (Air Carrier Inspector) Jatin - ipratropium-albuterol 3 mL nebulizer solution (DUONEB) 3 mL INHALATION q 4 H PRN Vandana (Air Carrier Inspector) Jatin - insulin lispro pen (rapid acting) (HumaLOG KWIKPEN) SUBCUTANEOUS w MEALS Kiera Midha 1 Units at 03/25/19 1139 - calcium acetate 667 mg tab(s) (CALPHRON) 667 mg ORAL TID w MEALS Donavan (Res) MD Nahomi 667 mg at 03/27/19 0735 - insulin [...] Diagnosis Date - GARRET (acute kidney injury) ([facility]) 03/24/2019 - Ankylosing spondylitis (HCC) - CAD (coronary artery disease) - Cellulitis - Chronic combined systolic and diastolic CHF (congestive heart failure) ([facility]) 03/24/2019 - CKD (chronic kidney disease) stage 3, GFR 30-59 ml/min ([facility]) 03/24/2019 - Constipation - Diabetes ([facility]) - Gout - High phosphate levels 03/24/2019 - Hx of fracture multiple bones - Hyperkalemia 03/24/2019 - Hypoalbuminemia 03/24/2019 - Hyponatremia 03/24/2019 - Hypoxia 03/24/2019 - NSTEMI (non-ST elevated myocardial infarction) ([facility]) 03/12/2017 [facility] admit - Osteoarthritis PAST SURGICAL HISTORY [...] of Chronic Renal Failure, Stage 3 (Moderate) ([facility]) Acute On Chronic Diastolic Congestive Heart Failure ([facility]) Recurrent Right Pleural Effusion Pvd (Peripheral Vascular Disease) ([facility]) Altered Mental Status Uti (Urinary Tract Infection) Chronic Combined Systolic and Diastolic Chf (Congestive Heart Failure) ([facility]) Hyperkalemia Hypoxia Hypoalbuminemia Garret (Acute Kidney Injury) ([facility]) Ckd (Chronic Kidney Disease) Stage 3, Gfr 30-59 Ml/Min ([facility]) High Phosphate Levels Hyponatremia Diet Orders Placed This Encounter DIET RENAL LAST BOWEL MOVEMENT Number of BMs: 1 (03/26/192027) Prior to Admission Opiate Status Episodic Outpatient Pain Management: No. Rx at D/C: No Rx on chart: No OARRS: see above- most recent 03/22 Will[place] 5/325 # 30 (4ds); 12/04 Neurontin 300mg # 180 (90ds) Pain Regimen/Notes (Opiate use last 24 hrs): APAP 650mg po q6h prn x 0 Neurontin 200 mg ?1 Baclofen 5 mg ?1 [place] 5/325?1 PLAN: Pt admitted with worsening neck and bilateral shoulder pain; defer diagnostic w/u to primary team. Need to review recent MRI from [place]. Appreciate neurosurgery evaluation. No neurologic deficits. Probable soft tissue injury to his neck and shoulders Pt with hx chronic multifactorial pain 2/2 OA, anklylosing spondylitis and DM neuropathy Neurontin 200mg po qd (reduced dose with CKD 3/4; baseline creatinine 2.3?2.4 APAP 650mg po q6h prn Continue [place] 5/325 one po q4h prn mod/severe pain- minimal use Baclofen 5mg po tid prn Appreciate PT evaluation; recommendation for home discharge Patient will not need prescription. Stable for discharge from pain standpoint. Will sign off; our team available as needed Lara Feliciano MD [facility] PROGRESS HNO ID: [id number] Author: Ra Alcala Service: Hospital Medicine Author Type: Physician Type: Progress Notes Filed: 03/27/2019 9:27 AM Note Text: DEPARTMENT OF HOSPITAL MEDICINE PROGRESS NOTE SERVICE DATE: 03/27/2019 SERVICE TIME: 9:25 AM Hospital Medicine/Primary Attending: Ra Alcala MD NIGHT AND WEEKEND COVERAGE: After 7pm please page [phone] SUBJECTIVE: F/u neck pain. No CP SOB [...] Invalid input(s): PT BMP: Recent Labs 03/27/19 0025 NA 137 K 5.1 CHLOR 107 CO2 23 BUN 79* CREAT 2.09* GLUC 78 CMP: Recent Labs 03/27/19 0025 NA 137 [...] units Sub Q BID Disposition: Home with [facility] Plan of care discussed with: Patient SIGNATURE: Ra Alcala MD PATIENT NAME: Mauri Quinones DATE: March 27, 2019 TIME: 9:25 AM PAGER/CONTACT #: My Pager Normal [facility] Renal Panelon 03-27-2019 Creatinine [Mass/Vol] 2.09 mg/dL High 0.67-1.17 [facility] Comment on above: Performed By: #### G FR #### [facility] [address] [place], [place] [address] Phosphate [Mass/Vol] 4.8 mg/dL Normal 2.5-4.9 [facility] Comment on above: Performed By: #### G FR #### [facility] [address] [place] [id number] Albumin [Mass/Vol] 1.5 g/dL Low 3.4-5.0 [facility] Comment on above: Performed By: #### G FR #### [facility] [address] [place], [place] [address] Anion gap [Moles/Vol] 12 mmol/L Normal 8-16 [facility] Comment on above: Performed By: #### G FR #### [facility] [address] [place], [place] [address] CO2 [Moles/Vol] 23 mmol/L Normal 21-32 [facility] Comment on above: Performed By: #### G FR #### [facility] [address] [place], [place] [address] Glucose [Mass/Vol] 78 mg/dL Normal 70-99 [facility] Comment on above: Performed By: #### G FR #### [facility] [address] [place], [place] [address] Calcium [Mass/Vol] 8.7 mg/dL Normal 8.5-10.1 [facility] Comment on above: Performed By: #### G FR #### [facility] [address] [place], [place] [address] Urea nitrogen [Mass/Vol] 79 mg/dL High 7-18 [facility] Comment on above: Performed By: #### G FR #### [facility] [address] [place], [place] [address] Chloride [Moles/Vol] 107 mmol/L Normal 98-107 [facility] Comment on above: Performed By: #### G FR #### [facility] [address] [place], [place] [address] Potassium [Moles/Vol] 5.1 mmol/L Normal 3.5-5.1 [facility] Comment on above: Performed By: #### G FR #### [facility] [address] [place], [place] [address] Sodium [Moles/Vol] 137 mmol/L Normal 136-145 [facility] Comment on above: Performed By: #### G FR #### [facility] [address] [place], [place] [address] CONSULTon 03-26-2019 CONSULT HNO ID: [id number] Author: Anibal Sexton Service: Neurosurgery Author Type: Physician Type: Consults Filed: 03/26/2019 7:52 AM Note Text: CONSULT: NEUROSURGERY SERVICE SERVICE DATE: 03/26/2019 SERVICE TIME: 7:38 AM' REASON FOR CONSULT: Neck pain REQUESTING PHYSICIAN: Hospitalist PRIMARY CARE PHYSICIAN: Aditya Davis PA-C Subjective Mr. Quinones is a 63 year old male who presents for neck pain. ! 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 No weakness or numbness. History of spinal ankylosing spondylitis. Had MRI at [facility] that was not sent with him and is not available for review. FUNCTIONAL STATUS: Independent PAST MEDICAL HISTORY Diagnosis Date - GARRET (acute kidney injury) ([facility]) 03/24/2019 - Ankylosing spondylitis ([facility]) - CAD (coronary artery disease) - Cellulitis - Chronic combined systolic and diastolic CHF (congestive heart failure) ([facility]) 03/24/2019 - CKD (chronic kidney disease) stage 3, GFR 30-59 ml/min ([facility]) 03/24/2019 - Constipation - Diabetes ([facility]) - Gout - High phosphate levels 03/24/2019 - Hx of fracture multiple bones - Hyperkalemia 03/24/2019 - Hypoalbuminemia 03/24/2019 - Hyponatremia 03/24/2019 - Hypoxia 03/24/2019 - NSTEMI (non-ST elevated myocardial infarction) ([facility]) 03/12/2017 [facility] admit - Osteoarthritis PAST SURGICAL HISTORY [...] reviewed for today's visit: Scan reports of Cspine indicating no fx or disc herniation but ankylosing spondylitis. We need images sent for review. Impression/Recommendations Active Problems: Uncontrolled type 2 diabetes mellitus without complication, with long-term current use of insulin ([facility]) POA: Yes Assessment AND Plan: Arteriosclerotic heart disease (ASHD) POA: Yes Assessment AND Plan: Hypertension, essential POA: Yes Assessment AND Plan: Lower leg edema POA: Yes Assessment AND Plan: Anemia of chronic renal failure, stage 3 (moderate) ([facility]) POA: Yes Assessment AND Plan: Altered mental status POA: Yes Assessment AND Plan: UTI (urinary tract infection) POA: Unknown Assessment AND Plan: Chronic combined systolic and diastolic CHF (congestive heart failure) ([facility]) POA: Yes Assessment AND Plan: Hyperkalemia POA: Yes Assessment AND Plan: Hypoxia POA: Yes Assessment AND Plan: Hypoalbuminemia POA: Yes Assessment AND Plan: GARRET (acute kidney injury) ([facility]) POA: Yes Assessment AND Plan: CKD (chronic kidney disease) stage 3, GFR 30-59 ml/min ([facility]) POA: Yes Assessment AND Plan: High phosphate [...] March 26, 2019 TIME: 7:37 AM PAGER: [phone] Normal [facility] CONSULT PROGon 03-26-2019 CONSULT PROG HNO ID: [id number] Author: Kiera Gonzalez Service: Endocrinology Author Type: [...] complication, with long-term current use of insulin ([facility]) POA: Yes Assessment AND Plan: 12-15 ears [...] hx ankylosing spondylitis GARRET (acute kidney injury) ([facility]) POA: Yes Assessment AND Plan: creat 2.33(2.47); per renal CKD (chronic kidney disease) stage 3, GFR 30-59 ml/min ([facility]) POA: Yes Assessment AND Plan: creat 1.54 [...] March 26, 2019 TIME: 8:01 AM PAGER: [phone] Normal [facility] PROGRESSon 03-26-2019 PROGRESS HNO ID: [id number] Author: Ra Alcala Service: Hospital Medicine Author Type: Physician Type: Progress Notes Filed: 03/27/2019 9:28 AM Note Text: DEPARTMENT OF HOSPITAL MEDICINE PROGRESS NOTE SERVICE DATE: 03/26/2019 SERVICE TIME: 2:54 PM Hospital Medicine/Primary Attending: Ra Alcala MD NIGHT AND WEEKEND COVERAGE: After 7pm please page [phone] SUBJECTIVE: F/u Neck pain. No CP SOB [...] units Sub Q BID Disposition: Home with [facility] Plan of care discussed with: Patient SIGNATURE: Ra Alcala MD PATIENT NAME: Mauri Quinones DATE: March 26, 2019 TIME: 2:54 PM PAGER/CONTACT #: My Pager [facility] PROGRESS HNO ID: [id number] Author: Daniel Mcfadden MD Service: Nephrology Author [...] hyperkalemia 2 days ago when he visited [place] ED . Pt was given Kayexalate. K is wnl on 03/25 lab Avoid ACEI/ARB. Renal diet ? 4- Hyperphosphatemia: continue Phoslo 667 mg one with each meal ? 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 He lives with his and dtr; ambulates with a walker or cane. He does not use tobacco, ETOH or illicit meds. Review of [place] Automated RX Reporting System shows Summary Total Prescriptions: 21 Total Prescribers: 9 Total Pharmacies: 3 Fill Date ID Written Drug Qty Days Prescriber Rx # Pharmacy Refill Daily Dose * Pymt Type FEATHER TRIMMER 03/22/2019 2 03/22/2019 Hydrocodone-Acetamin 5-325 MG 30 4 Ma Ter [id number] [facility] (5563) 0 37.50 [facility] [place] 12/04/2018 1 02/04/2018 Gabapentin 300 MG Capsule 180 90 Ma Bar [id number] [place] (5225) 3 [place] 09/12/2018 1 02/04/2018 Gabapentin 300 MG Capsule 180 90 Ma Bar [id number] [place] (7807) 2 [place] 09/02/2018 1 08/29/2018 Hydrocodone-Acetamin 5-325 MG 42 7 Mi Lyk [id number] [facility] (6607) 0 30.00 [facility] [place] 08/17/2018 1 08/08/2018 Hydrocodone-Acetamin 5-325 MG 42 7 Ja Gli [id number] [facility] (1327) 0 30.00 [facility] [place] 07/27/2018 1 07/23/2018 Hydrocodone-Acetamin 5-325 MG 42 7 Je Dul [id number] [facility] (1327) 0 30.00 [facility] [...] DAILY Daniel Mcfadden MD 40 mg at 03/26/19807 - gabapentin 200 mg cap(s) (NEURONTIN) 200 mg ORAL DAILY Lara K Scantling 200 mg at 03/26/19807 - HYDROcodone 5 mg - acetaminophen 325 mg tablet (NORCO) 1 tablet ORAL q 4 H PRN Lara K Scantling 1 tablet at 03/25/192130 - baclofen 5 mg tab(s) (LIORESAL) 5 mg ORAL TID PRN Lara Salmeron Scantling - doxazosin 2 mg tab(s) (CARDURA) 2 mg ORAL BID Dante Myers 2 mg at 03/26/19807 - carvedilol 25 mg tab(s) (COREG) 25 mg ORAL BID w MEALS Dante Myers 25 mg at 03/26/19807 - latanoprost 0.005 % 1 Drop (XALATAN) 1 Drop BOTH EYES AT BEDTIME Dante Myers 1 Drop at 03/25/192137 - NaCl 0.9% 3-5 mL 3-5 mL INTRAVENOUS q 12 H Dante Myers 3 mL at 03/26/19 0832 - heparin 5,000 Units injection 5,000 Units SUBCUTANEOUS q 12 H Dante Myers 5,000 Units at 03/25/192 - ondansetron 4 mg tab(s) (ZOFRAN) 4 [...] 3-5 mL INTRAVENOUS q 12 H Vandana (Air Carrier Inspector) Jatin 3 mL at 03/26/19 0808 - aluminum-magnesium hydroxide-simethicone 200-200-20 mg/5 mL 30 mL (MAALOX,MYLANTA,MAG-AL PLUS) 30 mL ORAL DAILY PRN Vandana (Air Carrier Inspector) Jatin - docusate sodium 100 mg cap(s) (COLACE) 100 mg ORAL BID PRN Vandana (Air Carrier Inspector) Jatin - ipratropium-albuterol 3 mL nebulizer solution (DUONEB) 3 mL INHALATION q 4 H PRN Vandana (Air Carrier Inspector) Jatin - insulin lispro pen (rapid acting) [...] (8 AM) Kiera Midha 15 Units at 03/26/19 0809 Medications Prior [...] Diagnosis Date - GARRET (acute kidney injury) ([facility]) 03/24/2019 - Ankylosing spondylitis ([facility]) - CAD (coronary artery disease) - Cellulitis - Chronic combined systolic and diastolic CHF (congestive heart failure) ([facility]) 03/24/2019 - CKD (chronic kidney disease) stage 3, GFR 30-59 ml/min ([facility]) 03/24/2019 - Constipation - Diabetes ([facility]) - Gout - High phosphate levels 03/24/2019 - Hx of fracture multiple bones - Hyperkalemia 03/24/2019 - Hypoalbuminemia 03/24/2019 - Hyponatremia 03/24/2019 - Hypoxia 03/24/2019 - NSTEMI (non-ST elevated myocardial infarction) (HCC) 03/12/2017 [facility] admit - Osteoarthritis PAST SURGICAL HISTORY [...] Complication, With Long-Term Current Use of Insulin (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) Acute On Chronic Diastolic Congestive Heart Failure ([facility]) Recurrent Right Pleural Effusion Pvd (Peripheral Vascular Disease) ([facility]) Altered Mental Status Uti (Urinary Tract Infection) Chronic Combined Systolic and Diastolic Chf (Congestive Heart Failure) ([facility]) Hyperkalemia Hypoxia Hypoalbuminemia Garret (Acute Kidney Injury) ([facility]) Ckd (Chronic Kidney Disease) Stage 3, Gfr 30-59 Ml/Min ([facility]) High Phosphate Levels Hyponatremia Diet Orders Placed This Encounter DIET RENAL LAST BOWEL MOVEMENT Prior to Admission Opiate Status Episodic Outpatient Pain Management: No. Rx at D/C: No Rx on chart: No OARRS: see above- most recent 03/22 [place] 5/325 # 30 (4ds); 12/04 Neurontin 300mg # 180 (90ds) Pain Regimen/Notes (Opiate use last 24 hrs): APAP 650mg po q6h prn x 2 Neurontin 200 mg ?1 Flexeril 5mg tid prn xone [place] 5/325?1 PLAN: Pt admitted with worsening neck and bilateral shoulder pain; defer diagnostic w/u to primary team. Need to review recent MRI from [place]. Appreciate neurosurgery evaluation. No neurologic deficits. Probable soft tissue injury to his neck and shoulders Pt with hx chronic multifactorial pain 2/2 OA, anklylosing spondylitis and DM neuropathy Neurontin 200mg po qd (reduced dose with CKD 3/4; baseline creatinine 2.3?2.4 APAP 650mg po q6h prn Continue [place] 5/325 one po q4h prn mod/severe pain Baclofen 5mg po tid prn Disposition pending Lara Feliciano MD [facility] THERAPY NTon 03-26-2019 THERAPY NT HNO ID: [id number] Author: Melvin (Pt) Mukund Service: Physical Therapy Author Type: Physical Therapist Type: Therapy (PT/OT/Speech/Resp) Filed: 03/26/2019 11:12 AM Note Text: Physical Therapy Treatment SERVICE DATE: 03/26/2019 SERVICE TIME: 1038 to 1101 ROOM: [id number] Recommended Discharge Disposition: Home Recommended Discharge Disposition [...] get up from supine. Recommend home at . Patient Disposition at Start of Session: (on [...] Patient TREATMENT INTERVENTIONS: Interventions Provided: Therapeutic Exercise (88405);Therapeutic Activity (88193);Gait Training (64451) Therapeutic Exercise (54951) Treatment Minutes: 8 1 unit Skilled Intervention(s): Instruction in therapeutic exercise gentle shoulder rolls fwd and back, and scapular retractions (with tactile cues for moving scapula), head supported gentle rotation and side bend through pain free ROM Verbal and tactile cuing provided . Therapeutic Activity (76945) Treatment Minutes: 7 0 units Skilled Intervention(s): Education with donning cervical collar. Educated on sup to sit transfer. Gait Training (43231) Treatment Minutes: 8 1 unit Skilled Intervention(s): [...] DATE: March 26, 2019 TIME: 11:06 AM [facility] CASE MANAGEMon 03-25-2019 CASE MANAGEM HNO ID: [id number] Author: Dagmar Guzman) SULTANA Chicas Service: ? Author Type: Registered Nurse Type: Care Mgt Progress Note Filed: 03/25/2019 11:17 AM Note Text: CARE MANAGEMENT PROGRESS NOTE SERVICE DATE: 03/25/2019 SERVICE TIME: 11:16 AM LOS: 1 day Needs Prior to Discharge: None Spoke with patient Reviewed evals both rec home at [facility]. Pt in cervical collar. Noted dm ed restarted on insulin and pt denies need for skilled nsg/home care at [facility] --has been on insulin in past. Dc plan return home. 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 He lives with his and dtr; ambulates with a walker or cane. He does not use tobacco, ETOH or illicit meds. Review of [place] Automated RX Reporting System shows Summary Total [...] Pharmacy Refill Daily Dose * Pymt Type FEATHER TRIMMER 03/22/2019 2 03/22/2019 Hydrocodone-Acetamin 5-325 MG 30 4 Ma Ter [id number] [place] (5563) 0 37.50 [place] 12/04/2018 1 02/04/2018 Gabapentin 300 MG Capsule 180 90 Ma Bar [id number] [place] (7325) 3 [place] 09/12/2018 1 02/04/2018 Gabapentin 300 MG Capsule 180 90 Ma Bar [id number] [facility] (1327) 2 [place] 09/02/2018 1 08/29/2018 Hydrocodone-Acetamin 5-325 MG 42 7 Mi Lyk [id number] [facility] (1327) 0 30.00 [place] 08/17/2018 1 08/08/2018 Hydrocodone-Acetamin 5-325 MG 42 7 Ja Gli [id number] [facility] (1327) 0 30.00 [place] 07/27/2018 1 07/23/2018 Hydrocodone-Acetamin 5-325 MG 42 7 Je Dul [id number] [facility] (1327) 0 30.00 [facility] [...] 3-5 mL INTRAVENOUS q 12 H Vandana (Air Carrier Inspector) Jatin - aluminum-magnesium hydroxide-simethicone 200-200-20 mg/5 mL 30 mL (MAALOX,MYLANTA,MAG-AL PLUS) 30 mL ORAL DAILY PRN Vandana (Air Carrier Inspector) Jatin - docusate sodium 100 mg cap(s) (COLACE) 100 mg ORAL BID PRN Vandana (Air Carrier Inspector) Jatin - ipratropium-albuterol 3 mL nebulizer solution (DUONEB) 3 mL INHALATION q 4 H PRN Vandana (Air Carrier Inspector) Jatin - insulin lispro pen (rapid acting) [...] Diagnosis Date - GARRET (acute kidney injury) ([facility]) 03/24/2019 - Ankylosing spondylitis ([facility]) - CAD (coronary artery disease) - Cellulitis - Chronic combined systolic and diastolic CHF (congestive heart failure) ([facility]) 03/24/2019 - CKD (chronic kidney disease) stage 3, GFR 30-59 ml/min ([facility]) 03/24/2019 - Constipation - Diabetes ([facility]) - Gout - High phosphate levels 03/24/2019 - Hx of fracture multiple bones - Hyperkalemia 03/24/2019 - Hypoalbuminemia 03/24/2019 - Hyponatremia 03/24/2019 - Hypoxia 03/24/2019 - NSTEMI (non-ST elevated myocardial infarction) ([facility]) 03/12/2017 [facility] admit - Osteoarthritis PAST SURGICAL HISTORY [...] labs and imaging results. CBC: Recent Labs 03/25/19409 WBC 8.79 RBC 2.98* HB 8.9* HCT 28.0* PLT 393* MCV 94.0 MCH 29.9 MPV 9.2 RDW 13.4 CMP: Recent Labs 03/25/19409 NA 135* K 5.1 CHLOR 104 CO2 [...] Systolic and Diastolic Chf (Congestive Heart Failure) ([facility]) Hyperkalemia Hypoxia Hypoalbuminemia Garret (Acute Kidney Injury) (Hcc) Ckd (Chronic Kidney Disease) Stage 3, Gfr 30-59 Ml/Min (Hcc) High Phosphate Levels Hyponatremia Diet Orders Placed This Encounter DIET RENAL LAST BOWEL MOVEMENT Prior to Admission Opiate Status Episodic Outpatient Pain Management: No. Rx at D/C: TBD Rx on chart: No OARRS: see above- most recent 03/22 [place] 5/325 # 30 (4ds); 12/04 Neurontin 300mg # 180 (90ds) Pain Regimen/Notes (Opiate use last 24 hrs): APAP 650mg po q6h prn x 2 Flexeril 5mg tid prn xone Morphine 1-2mg IV q4h prn 1mg x one, 2mg x one PLAN: Pt admitted with worsening neck and bilateral shoulder pain; defer diagnostic w/u to primary team. Need to review recent imaging at [place]. Pt with hx chronic multifactorial pain 2/2 OA, anklylosing spondylitis and DM neuropathy Neurontin 200mg po qd (reduced dose with CKD 3/4) APAP 650mg po q6h prn Discontinue Morphine IV [place] 5/325 one po q4h prn mod/severe pain Change Flexeril to Baclofen 5mg po tid prn OT/PT Discussed with son at bedside Lara Feliciano MD [facility] CONSULT PROGon 03-25-2019 CONSULT PROG HNO ID: [id number] Author: Kiera Gonzalez Service: Endocrinology Author Type: [...] hx ankylosing spondylitis GARRET (acute kidney injury) ([facility]) POA: Yes Assessment AND Plan: creat 2.33(2.47); per renal CKD (chronic kidney disease) stage 3, GFR 30-59 ml/min ([facility]) POA: Yes Assessment AND Plan: creat 1.54 in 07/2018 Arteriosclerotic heart disease (ASHD) POA: Yes Assessment AND Plan: hx Hypertension, essential POA: Yes Assessment AND Plan: per caprice UTI (urinary tract infection) POA: Unknown Assessment AND Plan: on A/B Chronic combined systolic and diastolic CHF (congestive heart failure) ([facility]) POA: Yes Assessment AND Plan: hx SIGNATURE: Kiera Gonzalze MD PATIENT NAME: Mauri Quinones DATE: March 25, 2019 TIME: 12:07 PM PAGER: [phone] Normal [facility] Comprehensive Panelon 2018 Creatinine [Mass/Vol] 2.33 mg/dL High 0.67-1.17 [facility] Comment on above: Performed By: #### G FR #### [facility] [address] [place], [place] [address] Protein [Mass/Vol] 6.6 g/dL Normal 6.4-8.2 [facility] Comment on above: Performed By: #### G FR #### [facility] [address] [place], [place] [address] ALP [Catalytic activity/Vol] 156 U/L High 45-117 [facility] Comment on above: Performed By: #### G FR #### [facility] [address] [place], [place] [address] ALT [Catalytic activity/Vol] 35 U/L Normal 12-78 [facility] Comment on above: Performed By: #### G FR #### [facility] [address] [place], [place] [address] Bilirubin [Mass/Vol] 0.1 mg/dL Low 0.2-1.0 [facility] Comment on above: Performed By: #### G FR #### [facility] [address] [place], [place] [address] AST [Catalytic activity/Vol] 16 U/L Normal 15-37 [facility] Comment on above: Performed By: #### G FR #### [facility] [address] [place], [place] [address] Glucose [Mass/Vol] 217 mg/dL High 70-99 [facility] Comment on above: Performed By: #### G FR #### [facility] [address] [place], [place] [address] Albumin [Mass/Vol] 1.7 g/dL Low 3.4-5.0 [facility] Comment on above: Performed By: #### G FR #### [facility] [address] [place], [place] [address] Anion gap [Moles/Vol] 13 mmol/L Normal 8-16 [facility] Comment on above: Performed By: #### G FR #### [facility] [address] [place], [place] [address] Calcium [Mass/Vol] 8.7 mg/dL Normal 8.5-10.1 [facility] Comment on above: Performed By: #### G FR #### [facility] [address] [place] [address] CO2 [Moles/Vol] 23 mmol/L Normal 21-32 [facility] Comment on above: Performed By: #### G FR #### [facility] [address] [place] [address] Urea nitrogen [Mass/Vol] 83 mg/dL High 7-18 [facility] Comment on above: Performed By: #### G FR #### [facility] [address] [place] [address] Chloride [Moles/Vol] 104 mmol/L Normal 98-107 [facility] Comment on above: Performed By: #### G FR #### [facility] [address] [place] [address] Potassium [Moles/Vol] 5.1 mmol/L Normal 3.5-5.1 [facility] Comment on above: Performed By: #### G FR #### [facility] [address] [place] [address] Sodium [Moles/Vol] 135 mmol/L Low 136-145 [facility] Comment on above: Performed By: #### G FR #### [facility] [address] [place] [address] Hemogramon 03-25-2019 Erythrocyte distribution width (RBC) [Ratio] 13.4 % Normal 11.6-14.4 [facility] Comment on above: Performed By: #### P 14 #### [facility] [address] [place] [address] Hematocrit (Bld) [Volume fraction] 28.0 % Low 40.1-51.0 [facility] Comment on above: Performed By: #### P 14 #### [facility] [address] [place] [address] Hemoglobin (Bld) [Mass/Vol] 8.9 g/dL Low 13.7-17.5 [facility] Comment on above: Performed By: #### P 14 #### [facility] [address] [place], [place] [address] MCH (RBC) [Entitic mass] 29.9 pg Normal 25.7-32.2 [facility] Comment on above: Performed By: #### P 14 #### [facility] [address] [place], [place] [address] MCHC (RBC) [Mass/Vol] 31.8 % Low 32.3-36.5 [facility] Comment on above: Performed By: #### P 14 #### [facility] [address] [place], [place] [address] MCV (RBC) [Entitic vol] 94.0 fL Normal 83.2-95.6 [facility] Comment on above: Performed By: #### P 14 #### [facility] [address] [place], [place] [address] Platelet mean volume (Bld) [Entitic vol] 9.2 fL Normal 8.7-12.0 [facility] Comment on above: Performed By: #### P 14 #### [facility] [address] [place], [place] [address] Platelets (Bld) [#/Vol] 393 thou/cmm High 141-365 [facility] Comment on above: Performed By: #### P 14 #### [facility] [address] [place], [place] [address] RBC (Bld) [#/Vol] 2.98 mil/cmm Low 4.63-6.08 [facility] Comment on above: Performed By: #### P 14 #### [facility] [address] [place], [place] [address] RDW SD 46.3 fl High 36.1-45.8 [facility] Comment on above: Performed By: #### P 14 #### [facility] [address] [place], [place] [address] WBC (Bld) [#/Vol] 8.79 thou/cmm Normal 4.23-9.07 [facility] Comment on above: Performed By: #### P 14 #### [facility] [address] [place], [place] [address] Lipid Profileon 03-25-2019 Cholesterol in HDL [Mass/Vol] 42 mg/dL Normal >40 [facility] Comment on above: Performed By: #### G FR #### [facility] [address] [place], [place] [address] Cholesterol in LDL [Mass/Vol] 50 mg/dL Normal [facility] Comment on above: Result Comment: No C AD and with fewer than 2 CAD risk factors <160 mg/dL No CAD but with 2 or more CAD risk factors <130 mg/dL Definite CAD or other atherosclerotic disease <100 mg/dL Performed By: #### G FR #### [facility] [address] [place], [place] [address] Cholesterol in LDL/Cholesterol in HDL [Mass ratio] 1.2 Normal 1.1-4.8 [facility] Comment on above: Result Comment: LDL, VLDL,LDL/HDL, Invalid if Triglyceride >400 Performed By: #### G FR #### [facility] [address] [place], [place] [address] Cholesterol.total/Cho lesterol in HDL [Mass ratio] 2.6 {ratio} Normal 2.1-7.3 [facility] Comment on above: Performed By: #### G FR #### [facility] [address] [place], [place] [address] Cholesterol in VLDL [Mass/Vol] 19 mg/dL Normal <50 Desired [facility] Comment on above: Performed By: #### G FR #### [facility] [address] [place], [place] [address] Triglyceride [Mass/Vol] 95 mg/dL Normal 0-149 [facility] Comment on above: Result Comment: < 20 0 Desirable Result invalid if not a fasting specimen. Performed By: #### G FR #### [facility] [address] [place], [place] [address] Cholesterol [Mass/Vol] 111 mg/dL Normal 0-199 [facility] Comment on above: Result Comment: <200 Desirable 200-240 Borderline >240 High Performed By: #### G FR #### [facility] [address] [place], [place] [address] NURSING PROGon 03-25-2019 NURSING PROG HNO ID: [id number] Author: Vandana MarquezRn) SULTANA Stephen Service: ? Author Type: Registered Nurse Type: Nursing Progress Note Filed: 03/25/2019 9:02 AM Note Text: Nursing Progress Note Patient Name: Mauri Quinones Patient Location: [id number] Daily Note: Spoke with family member, Staci Gonsalves left phone number and would like to speak to the doctor regarding some options for the pt. Will notify doctor Aggie about this. This note was completed by: Vandana Stephen RN [facility] PROGRESSon 03-25-2019 PROGRESS HNO ID: [id number] Author: Daniel Mcfadden MD Service: Nephrology Author [...] hyperkalemia 2 days ago when he visited [place] ED . Pt was given Kayexalate. K is wnl today Avoid ACEI/ARB. Renal diet ? 4- Hyperphosphatemia: continue Phoslo 667 mg one with each meal ? 5- UTI: On ceftriaxone 1g IV daily Renal team will continue to follow Please call if any question at [phone] D/w Dr Surekha Mcfadden M.D [facility] PROGRESS HNO ID: [id number] Author: Mariela Irby Service: Hospital Medicine Author Type: Physician Type: Progress Notes Filed: 03/25/2019 5:28 PM Note Text: DEPARTMENT OF HOSPITAL MEDICINE PROGRESS NOTE SERVICE DATE: 03/25/2019 SERVICE TIME: 11:21 AM Hospital Medicine/Primary Attending: Mariela Irby, DO NIGHT AND WEEKEND COVERAGE: After 7pm, please call cross cover pager #[phone] Subjective INTERVAL HPI: Patient seen and examined. 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 [...] believe they did MRI C spine at [place]-will request records #neck pain-s/p imaging and d/c from [place], has neck brace ordered on admission, has [...] -- 03/24/19 0945 activity - mobilize patient (co,or) 03/24/19 0245 pneumatic compression stockings (co,or) 03/24/19 0245 activity - mobilize patient (co,or) VTE Prophylaxis: VTE prophylaxis appropriate Disposition: Home with [facility] Plan of care discussed with: Patient SIGNATURE: Mariela Irby DO PATIENT NAME: Mauri Quinones DATE: March 25, 2019 TIME: 11:21 AM PAGER/CONTACT #: [phone] Normal [facility] Protimeon 03-25-2019 INR Coag (PPP) [Relative time] 1.00 {INR} Normal 0.90-1.30 [facility] Comment on above: Result Comment: Catherine min K Antagonist (VKA) Therapeutic Range: INR 2 to 3 (Target INR of 2.5) Note: For patients treated with VKA drugs, such as warfarin, the [employer] 2012 Guideline recommends [...] GH, et al. Chest 2012; 141:7S-47S Victoria HOLT et al. [facility] 2017; 70: 252-289 Performed By: #### G FR #### [place] [address] PT Coag (PPP) [Time] 10.4 s Normal 9.7-13.0 [facility] Comment on above: Performed By: #### G FR #### [place] [address] ALLIED HEALTHon 03-24-2019 ALLIED HEALTH HNO ID: [id number] Author: Macey MarquezRn) SULTANA Cruz Service: Diabetes Education Author Type: Registered [...] March 24, 2019 TIME: 2:43 PM PAGER: [phone] [facility] CASE MGT INIT [place] 2018 [facility] HNO ID: [id number] Author: Addie (Rn) SULTANA Tapia Service: Care Management Author Type: Registered Nurse Type: Care Mgt Initial Assessment Filed: 03/24/2019 8:54 AM Note Text: CARE MANAGEMENT: ASSESSMENT AND DISCHARGE PLAN SERVICE DATE: 03/24/2019 SERVICE TIME: 8:42 AM PRIMARY CARE PHYSICIAN: Aditya Davis PA-C ADMISSION STATUS: Inpatient 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 Davis Pharmacy: [facility] Met with patient. He tells me [...] very helpful at home. Patient lives in [facility]. SIGNATURE: Addie Tapia RN PATIENT NAME: Mauri Quinones DATE: March 24, 2019 TIME: 8:42 AM PAGER/CONTACT #: [phone] Normal [facility] CONSULTon 03-24-2019 CONSULT HNO ID: [id number] Author: Kiera Gonzalez Service: Endocrinology Author Type: Physician Type: Consults Filed: 03/25/2019 1:04 PM Note Text: [facility] - Consultation PATIENT NAME: MAURI QUINONES CSN: [id number] DATE OF : 1955 SEX/AGE: M/63 PATIENT TYPE: I [place]OS[place] [facility] [place] [facility] LOCATION: [facility] DATE OF SERVICE: 03/24/2019 TIME OF SERVICE: 09:53 AM REASON FOR CONSULTATION: Diabetes management. HISTORY: The patient is a 63-year-old male, who was admitted with bilateral shoulder pain and neck pain. The patient has history of ankylosing spondylitis and he started having severe pain about 10 days ago and it is not getting better. He had been to [facility] twice. Regarding diabetes, the patient has [...] has chronic kidney disease. He saw a chain carrier 1 time and was due to go back to chain carrier again. He states he has gained 5-6 pounds weight over the last few months. His activity has been decreased. PAST MEDICAL HISTORY: History of type 2 insulin-requiring diabetes, history of diabetic neuropathy; history of coronary artery disease and CABG in 2017 after patient had MT, history of CHF, history of arthritis, history [...] patient with you. Kiera Gonzalez MD Endocrinology SM:modl /[id number] Normal [facility] CONSULT HNO ID: [id number] Author: Donavan (Blaze Comer MD Service: Nephrology Author Type: Resident [...] hyperkalemia 2 days ago when he visited [facility] . Pt was given Kayexalate. K is wnl today Avoid ACEI/ARB. Renal diet 4- Hyperphosphatemia: Will start Phoslo 667 mg one with each meal 5- UTI: On ceftriaxone 1g IV daily Thank you for the consult. Renal team will continue to follow Please call if any question at [phone] Daniel Mcfadden MD -- CONSULT: NEPHROLOGY SERVICE [...] week ago and he has been to [facility] twice, and was treated with pain meds and muscle relaxants. He was also diagnosed of UTI and started on keflex, outpatient. now switched to rocephin. Nephrology has been consulted for INDIRA on CKD. Per chart review, patient was instructed to follow up with a chain carrier but he has not seen one yet. Baseline creatinine is 2.0-2.2 FUNCTIONAL STATUS: Independent PAST MEDICAL HISTORY Diagnosis Date - GARRET (acute kidney injury) ([facility]) 03/24/2019 - Ankylosing spondylitis ([facility]) - CAD (coronary artery disease) - Cellulitis - Chronic combined systolic and diastolic CHF (congestive heart failure) ([facility]) 03/24/2019 - CKD (chronic kidney disease) stage 3, GFR 30-59 ml/min ([facility]) 03/24/2019 - Constipation - Diabetes ([facility]) - Gout - High phosphate levels 03/24/2019 - Hx of fracture multiple bones - Hyperkalemia 03/24/2019 - Hypoalbuminemia 03/24/2019 - Hyponatremia 03/24/2019 - Hypoxia 03/24/2019 - NSTEMI (non-ST elevated myocardial infarction) ([facility]) 03/12/2017 [facility] admit - Osteoarthritis PAST SURGICAL HISTORY [...] March 24, 2019 TIME: 10:09 AM PAGER: [phone] Normal [facility] CONSULT HNO ID: [id number] Author: Kiera Gonzalez Service: Endocrinology Author Type: Physician Type: Consults Filed: 03/24/2019 9:52 AM Note Text: I have reviewed the patient's medical record in detail. Consult note dictated. See new insulin orders. Kiera Gonzalez MD [facility] Comprehensive Panelon 2018 ALP [Catalytic activity/Vol] 140 U/L High 45-117 [facility] Comment on above: Performed By: #### P 14 #### [address] [address] Bilirubin [Mass/Vol] 0.1 mg/dL Low 0.2-1.0 [facility] Comment on above: Performed By: #### P 14 #### [address] [address] Protein [Mass/Vol] 6.3 g/dL Low 6.4-8.2 [facility] Comment on above: Performed By: #### P 14 #### [facility] [address] [place], [place] [address] AST [Catalytic activity/Vol] 18 U/L Normal 15-37 [facility] Comment on above: Performed By: #### P 14 #### [facility] [address] [place], [place] [address] ALT [Catalytic activity/Vol] 34 U/L Normal 12-78 [facility] Comment on above: Performed By: #### P 14 #### [address] [address] Creatinine [Mass/Vol] 2.47 mg/dL High 0.67-1.17 [facility] Comment on above: Performed By: #### P 14 #### [facility] [address] [place], [place] [address] Albumin [Mass/Vol] 1.5 g/dL Low 3.4-5.0 [facility] Comment on above: Performed By: #### P 14 #### [facility] [address] [place], [place] [address] Anion gap [Moles/Vol] 12 mmol/L Normal 8-16 [facility] Comment on above: Performed By: #### P 14 #### [facility] [address] [place], [place] [address] Calcium [Mass/Vol] 8.7 mg/dL Normal 8.5-10.1 [facility] Comment on above: Performed By: #### P 14 #### [facility] [address] [place], [place] [address] CO2 [Moles/Vol] 21 mmol/L Normal 21-32 [facility] Comment on above: Performed By: #### P 14 #### [facility] [address] [place], [place] [address] Glucose [Mass/Vol] 200 mg/dL High 70-99 [facility] Comment on above: Performed By: #### P 14 #### [facility] [address] [place], [place] [address] Urea nitrogen [Mass/Vol] 83 mg/dL High 7-18 [facility] Comment on above: Performed By: #### P 14 #### [facility] [address] [place], [place] [address] Chloride [Moles/Vol] 103 mmol/L Normal 98-107 [facility] Comment on above: Performed By: #### P 14 #### [facility] [address] [place], [place] [address] Potassium [Moles/Vol] 5.1 mmol/L Normal 3.5-5.1 [facility] Comment on above: Performed By: #### P 14 #### [facility] [address] [place] [address] Sodium [Moles/Vol] 131 mmol/L Low 136-145 [facility] Comment on above: Performed By: #### P 14 #### [facility] [address] [place] [address] Cult Urineon 03-24-2019 Cult Urine Test performed at [facility] Culture will be worked up per [...] vitro, but are not effective clinically. Normal [facility] Comment on above: Performed By: #### G FR #### [facility] [address] [place] [address] ED NOTEon 03-24-2019 ED NOTE HNO ID: [id number] Author: Sydnee MarquezRn) SULTANA Priest Service: Emergency Medicine Author Type: Registered Nurse Type: ED Notes Filed: 03/24/2019 12:04 AM Note Text: Pt when sleeping de-sat to 80% on RA. PAC Notified. Pt placed on 2 L NC and woke up by RN and sat improved. 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 Agree with A/P as below. This is a 63 y/o male with history of Ankylosing Spondylitis presents with worsening of neck pain. Was recently admitted at [facility] with reportedly negative imaging studies for [...] antibiotics, obtain records (cervical spine imaging) from [facility] Request nephrology consult for worsening kidney [...] 2 days later. Patient has been to [facility] ?2 and was diagnosed with a cervical strain as well as arthritis in the neck. He was put on muscle relaxants and pain medications. He was also diagnosed with a UTI and put on Keflex. Patient was not having any improvement with symptoms and came to [facility] ER. Patient currently is having pain [...] full sentences. In ER, patient was given Willshire and Keflex. Currently NIH?0. PAST MEDICAL HISTORY Diagnosis Date - GARRET (acute kidney injury) ([facility]) 03/24/2019 - Ankylosing spondylitis ([facility]) - CAD (coronary artery disease) - Cellulitis - Chronic combined systolic and diastolic CHF (congestive heart failure) ([facility]) 03/24/2019 - CKD (chronic kidney disease) stage 3, GFR 30-59 ml/min ([facility]) 03/24/2019 - Constipation - Diabetes ([facility]) - Gout - High phosphate levels 03/24/2019 - Hx of fracture multiple bones - Hyperkalemia 03/24/2019 - Hypoalbuminemia 03/24/2019 - Hyponatremia 03/24/2019 - Hypoxia 03/24/2019 - NSTEMI (non-ST elevated myocardial infarction) (H[facility]) 03/12/2017 [facility] admit - Osteoarthritis PAST SURGICAL HISTORY [...] 7.324 (L) 7.350 - 7.450 Final Specific [place], Ur Date Value Ref Range Status 03/23/2019 [...] meds GARRET on CKD (acute kidney injury) (HCC) POA: Yes Assessment AND Plan: c/s Nephrology, IVF, monitor High phosphate levels POA: Yes Assessment AND Plan: monitor Hyponatremia POA: Yes Assessment AND Plan: IVF Arteriosclerotic heart disease (ASHD) POA: Yes Assessment AND Plan: c/w home meds Hypertension, essential POA: Yes Assessment AND Plan: tele, stable, c/w home med Anemia of chronic renal failure, stage 3 (moderate) (HCC) POA: Yes Assessment AND Plan: c/s Nephrology, monitor Altered mental status POA: Yes Assessment AND Plan: resolved, possibly pain meds/muscle relaxant? UTI (urinary tract infection) POA: Unknown Assessment AND Plan: IV rocephin, IVF, monitor Chronic combined systolic and diastolic CHF (congestive heart failure) (HCC) POA: Yes Assessment AND Plan: check BNP, [...] 0232 -- 03/24/19 0245 pneumatic compression stockings ([place], [place]) 03/24/19 0245 activity - mobilize patient ([place]) VTE Prophylaxis: VTE prophylaxis appropriate SIGNATURE: Vandana Steiner APRN.CNP PATIENT NAME: Mauri Quinones DATE: March 24, 2019 TIME: 8:54 AM PAGER/CONTACT #: [phone] Normal [facility] Hemogramon 03-24-2019 Erythrocyte distribution width (RBC) [Ratio] 13.5 % Normal 11.6-14.4 [facility] Comment on above: Performed By: #### C BC1 #### [address] [address] Hematocrit (Bld) [Volume fraction] 29.2 % Low 40.1-51.0 [facility] Comment on above: Performed By: #### C BC1 #### [address] [address] Hemoglobin (Bld) [Mass/Vol] 9.1 g/dL Low 13.7-17.5 [facility] Comment on above: Performed By: #### C BC1 #### [facility] [address] [place] [address] MCH (RBC) [Entitic mass] 30.0 pg Normal 25.7-32.2 [facility] Comment on above: Performed By: #### C BC1 #### [facility] [address] [place] [address] MCHC (RBC) [Mass/Vol] 31.2 % Low 32.3-36.5 [facility] Comment on above: Performed By: #### C BC1 #### [facility] [address] [place] [address] MCV (RBC) [Entitic vol] 96.4 fL High 83.2-95.6 [facility] Comment on above: Performed By: #### C BC1 #### [facility] [address] [place] [address] Platelet mean volume (Bld) [Entitic vol] 9.0 fL Normal 8.7-12.0 [facility] Comment on above: Performed By: #### C BC1 #### [facility] [address] [place] [address] Platelets (Bld) [#/Vol] 348 thou/cmm Normal 141-365 [facility] Comment on above: Performed By: #### C BC1 #### [facility] [address] [place] [address] RBC (Bld) [#/Vol] 3.03 mil/cmm Low 4.63-6.08 [facility] Comment on above: Performed By: #### C BC1 #### [facility] [address] [place] [address] RDW SD 47.9 fl High 36.1-45.8 [facility] Comment on above: Performed By: #### C BC1 #### [facility] [address] [place], [place] [address] WBC (Bld) [#/Vol] 7.18 thou/cmm Normal 4.23-9.07 [facility] Comment on above: Performed By: #### C BC1 #### [facility] [address] [place], [place] [address] Hepatic Panelon 03-24-2019 ALP [Catalytic activity/Vol] 155 U/L High 45-117 [facility] Comment on above: Performed By: #### P 14 #### [facility] [address] [place], [place] [address] Bilirubin [Mass/Vol] 0.2 mg/dL Normal 0.2-1.0 [facility] Comment on above: Performed By: #### P 14 #### [facility] [address] [place], [place] [address] ALT [Catalytic activity/Vol] 37 U/L Normal 12-78 [facility] Comment on above: Performed By: #### P 14 #### [facility] [address] [place], [place] [address] AST [Catalytic activity/Vol] 23 U/L Normal 15-37 [facility] Comment on above: Performed By: #### P 14 #### [facility] [address] [place], [place] [address] Bilirubin [Mass/Vol] mg/dL Normal 0.00-0.20 [facility] Comment on above: Performed By: #### P 14 #### [facility] [address] [place], [place] [address] Protein [Mass/Vol] 6.9 g/dL Normal 6.4-8.2 [facility] Comment on above: Performed By: #### P 14 #### [facility] [address] [place], [place] [address] Albumin [Mass/Vol] 1.7 g/dL Low 3.4-5.0 [facility] Comment on above: Performed By: #### P 14 #### [facility] [address] [place], [place] [address] Hgb A1con 03-24-2019 HbA1c (Bld) [Mass fraction] 252 mg/dl Normal [facility] Comment on above: Performed By: #### P 14 #### [facility] [address] [place], [place] [address] HbA1c (Bld) [Mass fraction] 10.4 % High 4.2-6.3 [facility] Comment on above: Result Comment: Meth od is National Glycohemoglobin Standardization Program (NGSP) compliant. Performed By: #### P 14 #### [facility] [address] [place], [place] [address] Magnesium Bloodon 03-24-2019 Magnesium [Mass/Vol] 2.0 mg/dL Normal 1.6-2.6 [facility] Comment on above: Performed By: #### P 14 #### [facility] [address] [place], [place] [address] Magnesium [Mass/Vol] 2.1 mg/dL Normal 1.6-2.6 [facility] Comment on above: Performed By: #### M AG #### [place] [address] Microalbumin,Randomon 2018 Microalbumin,Random 243.00 mg/dL High 0.20-2.50 [facility] Comment on above: Performed By: #### P 14 #### [place] [address] N-terminal Pro-BNPon 019 Natriuretic peptide B (Bld) [Mass/Vol] [address] pg/mL Normal [facility] Comment on above: Result Comment: Note new reference range: Normal Reference Range: Patients <75 yrs old <125pg/ml Patients >=75 yrs old <450 pg/ml Performed By: #### P 14 #### [place] [address] NURSING PROGon 03-24-2019 NURSING PROG HNO ID: [id number] Author: Vandana (Rn) SULTANA Stephen Service: ? Author Type: Registered Nurse Type: Nursing Progress Note Filed: 03/24/2019 8:32 AM Note Text: Nursing Progress Note Patient Name: Mauri Quinones Patient Location: [id number] Daily Note:While checking pt vitals at this time, checked pt pulse ox and pt was at 84% RA, placed pt on 2L NC and pt came up to 93%, Sound CLE[employer] PORTER Vandana in room at this time and informed her. This note was completed by: Vandana Stephen RN [facility] NUTRITIONon 03-24-2019 NUTRITION HNO ID: [id number] Author: Maki Sorensen) ALIA Ham Service: Nutrition [...] Per patient has had in past at [facility]. Referral (Recommendation): Primary Care Provider MNT Billing: Initial Assess/15 min 1 unit SIGNATURE: MATA Bazan PATIENT NAME: Mauri Quinones DATE: March 24, 2019 TIME: 12:15 PM PAGER: [phone] [facility] PLAN OF CAREon 03-24-2019 PLAN OF CARE HNO ID: [id number] Author: Sylvia Duque (Pharmacist) Service: Pharmacy Author [...] medication history: Yes Reconciliation completed? 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 Patient Compliance: Good [id number] Medication List Adjustments: Medication Regimen Changes Medication [...] 500mg BID Filled 03/22/19 for 7 days Willshire 5/325mg PRN pain 4 day supply filled 03/22/19 Sodium polystyrene soln 5 day supply filled 03/22/19 Further Clarification Required: Medication Issue Patient is a 30 day readmission: Yes. Description: [facility] discharged 03/22/19 Patient Interested in Bedside Delivery: No Time Spent Reviewing Patient's Medications: 60 minutes Medication History Status (Justify NOT COMPLETED status): COMPLETED Allergies: ALLERGIES Allergen Reactions - Lyrica [Pregabalin] Swelling Preferred Pharmacy: [facility] Current [facility] Medications: Prior to Admission medications as of [...] PHARMACIST March 24, 2019 4:47 PM Normal [facility] Phosphorus Bloodon 9 Phosphate [Mass/Vol] 6.0 mg/dL High 2.5-4.9 [facility] Comment on above: Performed By: #### P 14 #### [facility] [address] [place] [address] Phosphate [Mass/Vol] 6.5 mg/dL High 2.5-4.9 [facility] Comment on above: Performed By: #### P HOS #### [facility] [address] [place] [address] THERAPY NTon 03-24-2019 THERAPY NT HNO ID: [id number] Author: Paulette Barrera/Savanna Lion Service: Occupational Therapy Author Type: Occupational Therapist Type: Therapy (PT/OT/Speech/Resp) Filed: 03/24/2019 3:54 PM Note Text: Occupational Therapy Evaluation SERVICE DATE: 03/24/2019 SERVICE TIME: 1520 to 1540 ROOM: [place] [address] Recommended Discharge Disposition: Home Recommended Discharge Disposition [...] of daily living (ADL) Interventions Provided: Evaluation;Self Prison Management (81443) $ Evaluation-Moderate (34617) Billed Units: 1 unit OT Evaluation Moderate [...] performance: ankylosing spondylitis, DM, OA, CAD. Self Prison Management (76337) Treatment Minutes: 8 1 unit Skilled Intervention(s): [...] grass a week ago. Initially presented to [facility] ED, incidental finding of UTI, started on Abx. PAST MEDICAL HISTORY Diagnosis Date - GARRET (acute kidney injury) ([facility]) 03/24/2019 - Ankylosing spondylitis ([facility]) - CAD (coronary artery disease) - Cellulitis - Chronic combined systolic and diastolic CHF (congestive heart failure) ([facility]) 03/24/2019 - CKD (chronic kidney disease) stage 3, GFR 30-59 ml/min ([facility]) 03/24/2019 - Constipation - Diabetes ([facility]) - Gout - High phosphate levels 03/24/2019 - Hx of fracture multiple bones - Hyperkalemia 03/24/2019 - Hypoalbuminemia 03/24/2019 - Hyponatremia 03/24/2019 - Hypoxia 03/24/2019 - NSTEMI (non-ST elevated myocardial infarction) ([facility]) 03/12/2017 [facility] admit - Osteoarthritis PAST SURGICAL HISTORY [...] March 24, 2019 TIME: 3:47 PM Normal [facility] THERAPY NT HNO ID: [id number] Author: Melvin Duval Service: Physical Therapy Author Type: Physical Therapist Type: Therapy (PT/OT/Speech/Resp) Filed: 03/24/2019 10:11 AM Note Text: Physical Therapy Evaluation SERVICE DATE: 03/24/2019 SERVICE TIME: 5125 to 1000 ROOM: [place] [address] Recommended Discharge Disposition: Home Recommended Discharge Disposition [...] Patient TREATMENT INTERVENTIONS: Interventions Provided: Evaluation;Therapeutic Exercise (08286) $ Evaluation-Moderate (97375) Billed Units: 1 unit History and examination of body systems see assessment section above. This patient?s clinical presentation is evolving. The patient required a moderate complexity evaluation. Therapeutic Exercise (93669) Treatment Minutes: 8 1 unit Skilled Intervention(s): [...] General Gait Deviations: Antalgic gait pattern(R stance) -HLM: 7: Walk 25 feet or more Please see discipline specific clinical documentation flowsheet for complete details for this therapy evaluation/treatment. SIGNATURE: Melvin Duval PT PATIENT NAME: Mauri Quinones DATE: March 24, 2019 TIME: 9:40 AM Normal [facility] Urea Nitrogen Randomon 03-24 Urea nitrogen [Mass/Vol] 496 mg/dL Normal [facility] Comment on above: Performed By: #### P 14 #### [place] [address] Urinalysis Routineon 019 Bacteria LM.HPF (Urine sed) [#/Area] NONE Normal None [facility] Comment on above: Performed By: #### U RIN2 #### [facility] [address] [place] [address] Ep Cells Urine 1.0 /hpf Normal 0.0-5.0 [facility] Comment on above: Performed By: #### U RIN2 #### [facility] [address] [place] [address] Hyaline Cast 4.7 /lpf High 0.0-1.0 [facility] Comment on above: Performed By: #### U RIN2 #### [facility] [address] [place] [address] RBC LM.HPF (Urine sed) [#/Area] 57.3 /[HPF] High 0.0-5.0 [facility] Comment on above: Performed By: #### U RIN2 #### [facility] [address] [place] [address] WBC LM.HPF (Urine sed) [#/Area] /[HPF] High 0.0-5.0 [facility] Comment on above: Performed By: #### U RIN2 #### [facility] [address] [place] [address] Appearance (U) TURBID Normal [facility] Comment on above: Performed By: #### U RIN2 #### [place] [address] Bilirubin (U) [Mass/Vol] Negative Normal Negative [facility] Comment on above: Performed By: #### U RIN2 #### [facility] [address] [place] [address] Color (U) YELLOW Normal [facility] Comment on above: Performed By: #### U RIN2 #### [facility] [address] [place] [address] Glucose Ql (U) 500 mg/dL Abnormal Negative [facility] Comment on above: Performed By: #### U RIN2 #### [place] [address] Hemoglobin,Urine MODERATE Abnormal Negative [facility] Comment on above: Performed By: #### U RIN2 #### [place] [address] Ketone Urine Negative Normal Negative [facility] Comment on above: Performed By: #### U RIN2 #### [facility] [address] [place] [address] Leukocytes Esterase LARGE Abnormal Negative [facility] Comment on above: Performed By: #### U RIN2 #### [place] [address] Nitrites Urine Negative Normal Negative [facility] Comment on above: Performed By: #### U RIN2 #### [facility] [address] [place], [place] [address] pH (U) 5.5 [pH] Normal 5.0-8.0 [facility] Comment on above: Performed By: #### U RIN2 #### [facility] [address] [place], [place] [address] Protein (U) [Mass/Vol] 100 mg/dL Abnormal Negative [facility] Comment on above: Performed By: #### U RIN2 #### [facility] [address] [place], [place] [address] Specific [place], Ur 1.019 Normal 1.005-1.030 [facility] Comment on above: Performed By: #### U RIN2 #### [facility] [address] [place] [address] Urobilinogen,Ur 1.0 EU/dL Normal 0.2-1.0 [facility] Comment on above: Performed By: #### U RIN2 #### [facility] [address] [place], [place] [address] Urine Protein/Creatinine Rat ioon 03-24-2019 Prot/Creat Ratio 6.00 mg/mg creat High 0.02-0.13 [facility] Comment on above: Performed By: #### P 14 #### [address] [address] Protein Ql (U) 473.4 mg/dL High 0.0-11.9 [facility] Comment on above: Performed By: #### P 14 #### [facility] [address] [place], [place] [address] Creatinine,Urine 78.9 mg/dL Normal [facility] Comment on above: Performed By: #### P 14 #### [facility] [address] [place], [place] [address] Vitamin B12on 03-24-2019 Cobalamin (Vitamin B12) [Mass/Vol] 1687 pg/mL High 193-986 [facility] Comment on above: Performed By: #### P 14 #### [place] [address] Comprehensive Panelon 2018 ALP [Catalytic activity/Vol] 154 U/L High 45-117 [facility] Comment on above: Performed By: #### P 14 #### [facility] [address] [place], [place] [address] Bilirubin [Mass/Vol] 0.2 mg/dL Normal 0.2-1.0 [facility] Comment on above: Performed By: #### P 14 #### [facility] [address] [place], [place] [address] Creatinine [Mass/Vol] 2.46 mg/dL High 0.67-1.17 [facility] Comment on above: Performed By: #### P 14 #### [facility] [address] [place], [place] [address] Protein [Mass/Vol] 6.7 g/dL Normal 6.4-8.2 [facility] Comment on above: Performed By: #### P 14 #### [facility] [address] [place], [place] [address] ALT [Catalytic activity/Vol] 40 U/L Normal 12-78 [facility] Comment on above: Performed By: #### P 14 #### [facility] [address] [place], [place] [address] AST [Catalytic activity/Vol] 27 U/L Normal 15-37 [facility] Comment on above: Performed By: #### P 14 #### [facility] [address] [place], [place] [address] Albumin [Mass/Vol] 1.7 g/dL Low 3.4-5.0 [facility] Comment on above: Performed By: #### P 14 #### [facility] [address] [place], [place] [address] Anion gap [Moles/Vol] 12 mmol/L Normal 8-16 [facility] Comment on above: Performed By: #### P 14 #### [facility] [address] [place], [place] [address] CO2 [Moles/Vol] 23 mmol/L Normal 21-32 [facility] Comment on above: Performed By: #### P 14 #### [facility] [address] [place], [place] [address] Glucose [Mass/Vol] 287 mg/dL High 70-99 [facility] Comment on above: Performed By: #### P 14 #### [facility] [address] [place] [address] Urea nitrogen [Mass/Vol] 81 mg/dL High 7-18 [facility] Comment on above: Performed By: #### P 14 #### [facility] [address] [place], [place] [address] Calcium [Mass/Vol] 8.4 mg/dL Low 8.5-10.1 [facility] Comment on above: Performed By: #### P 14 #### [facility] [address] [place] [address] Chloride [Moles/Vol] 102 mmol/L Normal 98-107 [facility] Comment on above: Performed By: #### P 14 #### [facility] [address] [place] [address] Potassium [Moles/Vol] 4.9 mmol/L Normal 3.5-5.1 [facility] Comment on above: Performed By: #### P 14 #### [facility] [address] [place] [address] Sodium [Moles/Vol] 132 mmol/L Low 136-145 [facility] Comment on above: Performed By: #### P 14 #### [facility] [address] [place] [address] [facility] Troponin Ion 03-23-2019 Troponin I.cardiac [Mass/Vol] ng/mL Normal 0.015-0.045 [facility] Comment on above: Performed By: #### E RTRP #### [facility] [address] [place] [address] ED NOTEon 03-23-2019 ED NOTE HNO ID: [id number] Author: Sydnee MarquezRn) SULTANA Priest Service: Emergency Medicine Author Type: Registered Nurse Type: ED Notes Filed: 03/23/2019 8:40 PM Note Text: Pt aware of need for urine sample. Normal [facility] ED NOTE HNO ID: [id number] Author: Sydnee Guzman) SULTANA Priest Service: Emergency Medicine Author Type: Registered Nurse Type: ED Notes Filed: 03/23/2019 8:40 PM Note Text: CT and XR notified that patient is ready for imaging. Normal [facility] ED NOTE HNO ID: [id number] Author: Sydnee MarquezRn) SULTANA Priest Service: Emergency Medicine Author Type: Registered Nurse Type: ED Notes Filed: 03/23/2019 7:56 PM Note Text: Pt reports having been seen multiple times over the last week, today having generalized weakness and fatigue. Pt also reports bilateral neck pain. Pt has no neuro deficits at this time. Pt does have bilateral lower extremity pitting edema. Normal [facility] ED PROV NOTEon 03-23-2019 ED PROV NOTE HNO ID: [id number] Author: Torri Trejo DO Service: Emergency Medicine [...] branches and hurt his arms. Went to [place] ER this past , dx with cervical starin, sent home with muscle relaxers. Went back to [place] on Sunday (bc he fell out of his recliner), had an MRI and was admitted overnight. Discharged yesterday. Family states he is lethargic now, cannot walk well. Was told his potassium was high at [place]. HPI 63y M presents c/o bilateral neck pain. is with him and reports slurred speech, lethargy and BLE edema. 9d ago, he sustained a neck injury where his arms were yanked backwards while he was trying to move a branch on riding mower. Pt initially did not think he needed to come in, but the pain persisted, so he went to [place] 4d ago. He was initially diagnosed with [...] They called EMS and went back to [place]. Pt was admitted and neck CT performed [...] come here rather than go back to [place]. reports that when he was in the hospital he was misidentifying objects and said he wanted to be with his relatives. thinks he may have been slurring his speech some as well. Pt currently denies SI/HI. 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 Recent decrease in lasix per doctor's orders from 60mg to 40mg. PAST MEDICAL HISTORY Diagnosis Date - Ankylosing spondylitis ([facility]) - CAD (coronary artery disease) - Cellulitis - Constipation - Diabetes ([facility]) - Gout - Hx of fracture multiple bones - NSTEMI (non-ST elevated myocardial infarction) ([facility]) 03/12/2017 [facility] admit - Osteoarthritis PAST SURGICAL HISTORY [...] 0.68 (*) 0.84 - 2.85 thou/cmm Abs. [place] 1.37 (*) 0.30 - 0.82 thou/cmm All [...] as of Mar 26 1526 Others' Documentation [place] Mar 23, 2019 2210 Clean catch urine sample obtained and sent to lab [BP] ED Course User Index [BP] Idalia Lopes (Chelsi) CHELSI Etienne Clinical Impressions as of Mar [...] the pain persisted, so he went to [place] 4d ago. He was initially diagnosed with [...] They called EMS and went back to [place]. Pt was admitted and neck CT performed [...] come here rather than go back to [place]. reports that when he was in the [...] this is unchanged from labs done at [place]. Potassium was is within normal limits at 4.9 today. Hemoglobin has increased from labs from labs done at [place]. EKG as interpreted by Dr. Torri Trejo [...] Urine culture sent. Patient given normal dose [place] and Keflex while in the ED. 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 Author Type: Physician Hydroponics Worker Type: ED Triage Notes Filed: 03/23/2019 6:44 [...] spondylitis. They state they went to the [place] ER 4 days ago and diagnosed with [...] CMP EKG SIGNATURE: Floyd Reid PA-C Normal [facility] Hemogram/Diffon 03-23-2019 Abs Immature Grans 0.04 thou/cmm Normal 0.00-0.05 [facility] Comment on above: Performed By: #### C BCD1 #### [place] [address] Abs Neut (ANC) 4.13 thou/cmm Normal 1.78-5.38 [facility] Comment on above: Performed By: #### C BCD1 #### [facility] [address] [place] [address] Abs. Baso 0.03 thou/cmm Normal 0.01-0.08 [facility] Comment on above: Result Comment: Smea r scanned; tech agrees with automated differential Performed By: #### C BCD1 #### [facility] [address] [place] [address] Abs. Ven[place] 1.37 thou/cmm High 0.30-0.82 [facility] Comment on above: Performed By: #### C BCD1 #### [place] [address] Basophils/100 WBC (Bld) 0.5 % Normal [facility] Comment on above: Performed By: #### C BCD1 #### [place] [address] Eosinophils (Bld) [#/Vol] 0.15 thou/cmm Normal 0.04-0.54 [facility] Comment on above: Performed By: #### C BCD1 #### [address] [address] Eosinophils/100 WBC (Bld) 2.3 % Normal [facility] Comment on above: Performed By: #### C BCD1 #### [place] [address] Immature Grans 0.60 % Normal [facility] Comment on above: Performed By: #### C BCD1 #### [address] [address] Lymphocytes (Bld) [#/Vol] 0.68 thou/cmm Low 0.84-2.85 [facility] Comment on above: Performed By: #### C BCD1 #### [address] [address] Lymphocytes/100 WBC (Bld) 10.6 % Normal [facility] Comment on above: Performed By: #### C BCD1 #### [facility] [address] [place] [address] Monocytes/100 WBC (Bld) 21.4 % Normal [facility] Comment on above: Performed By: #### C BCD1 #### [facility] [address] [place] [address] Seg Neutrophil 64.6 % Normal [facility] Comment on above: Performed By: #### C BCD1 #### [facility] [address] [place] [address] Erythrocyte distribution width (RBC) [Ratio] 13.6 % Normal 11.6-14.4 [facility] Comment on above: Performed By: #### C BCD1 #### [facility] [address] [place] [address] Hematocrit (Bld) [Volume fraction] 32.2 % Low 40.1-51.0 [facility] Comment on above: Performed By: #### C BCD1 #### [facility] [address] [place] [address] Hemoglobin (Bld) [Mass/Vol] 10.2 g/dL Low 13.7-17.5 [facility] Comment on above: Performed By: #### C BCD1 #### [facility] [address] [place] [address] MCH (RBC) [Entitic mass] 29.7 pg Normal 25.7-32.2 [facility] Comment on above: Performed By: #### C BCD1 #### [facility] [address] [place] [address] MCHC (RBC) [Mass/Vol] 31.7 % Low 32.3-36.5 [facility] Comment on above: Performed By: #### C BCD1 #### [facility] [address] [place] [address] MCV (RBC) [Entitic vol] 93.6 fL Normal 83.2-95.6 [facility] Comment on above: Performed By: #### C BCD1 #### [facility] [address] [place] [address] Platelet mean volume (Bld) [Entitic vol] 9.0 fL Normal 8.7-12.0 [facility] Comment on above: Performed By: #### C BCD1 #### [facility] [address] [place], [place] [address] Platelets (Bld) [#/Vol] 320 thou/cmm Normal 141-365 [facility] Comment on above: Performed By: #### C BCD1 #### [facility] [address] [place], [place] [address] RBC (Bld) [#/Vol] 3.44 mil/cmm Low 4.63-6.08 [facility] Comment on above: Performed By: #### C BCD1 #### [facility] [address] [place], [place] [address] RDW SD 46.5 fl High 36.1-45.8 [facility] Comment on above: Performed By: #### C BCD1 #### [facility] [address] [place], [place] [address] WBC (Bld) [#/Vol] 6.40 thou/cmm Normal 4.23-9.07 [facility] Comment on above: Performed By: #### C BCD1 #### [facility] [address] [place], [place] [address] BMPon 07-22-2018 Anion gap 3 molar conc 8 mmol/L Normal 5-16 [facility] Comment on above: Order Comment: Kahlil s: MIs This Patient Going To Surgery? YSurgery Date: 02/20/18 Performed By: #### L 500.80439, L500.10769, L500.11322 ####[facility] [id number] [place], [place] [address]Ru# [phone] Calcium mass conc 7.4 mg/dL Low 8.5-10.1 [facility] Comment on above: Order Comment: Jorgeu s: MIs This Patient Going To Surgery? YSurgery Date: 02/20/18 Performed By: #### L 500.53730, L500.78732, L500.63797 ####[facility] [id number] [place], [place] [address]Gw# [phone] Chloride molar conc 94 mmol/L Low 98-107 [facility] Comment on above: Order Comment: Campu s: MIs This Patient Going To Surgery? YSurgery Date: 02/20/18 Performed By: #### L 500.89554, L500.68479, L500.86681 ####[facility] [id number] [place], [place] [address]Sh# [phone] CO2 molar conc 28 mmol/L Normal 21-32 [facility] Comment on above: Order Comment: Campu s: MIs This Patient Going To Surgery? YSurgery Date: 02/20/18 Performed By: #### L 500.50507, L500.23378, L500.33838 ####[facility] [id number] [place], [place] [address]Cy# [phone] Creatinine mass conc 3.010 mg/dL High 0.670-1.170 [facility] Comment on above: Order Comment: Campu s: MIs This Patient Going To Surgery? YSurgery Date: 02/20/18 Result Comment: Macrina ents receiving either N-Acetylcysteine (NAC) orMetamizole prior to venipuncture, may have falsely depressedresults. Performed By: #### L 500.13738, L500.15547, L500.38108 ####[facility] [id number] [place], [place] [address]Hp# [phone] Glucose mass conc 74 mg/dL Normal 70-100 [facility] Comment on above: Order Comment: Campu s: MIs This Patient Going To Surgery? YSurgery Date: 02/20/18 Result Comment: 70-1 00- Normal Fasting; 100-125 Impaired Fasting; greaterthan 126 on more than one result- Diabetes. ADA guidelines.Results may be falsely elevated after the administration ofSulfapyridine.Results may be falsely depressed after the administration ofSulfasalazine. Performed By: #### L 500.61249, L500.59821, L500.96266 ####[facility] [id number] [place], [place] [address]Sb# [phone] Potassium molar conc 4.8 mmol/L Normal 3.5-5.1 [facility] Comment on above: Order Comment: Campu s: MIs This Patient Going To Surgery? YSurgery Date: 02/20/18 Performed By: #### L 500.59084, L500.07124, L500.59380 ####[facility] [id number] [place], [place] [address]Ij# [phone] Sodium molar conc 130 mmol/L Low 136-145 [facility] Comment on above: Order Comment: Campu s: MIs This Patient Going To Surgery? YSurgery Date: 02/20/18 Performed By: #### L 500.16474, L500.71100, L500.35255 ####[facility] [id number] [place], [place] [address]Ay# [phone] Urea nitrogen mass conc 68 mg/dL High 7- [facility] Comment on above: Order Comment: Campu s: MIs This Patient Going To Surgery? YSurgery Date: 02/20/18 Performed By: #### L 500.23509, L500.38693, L500.23123 ####[facility] [id number] [place], [place] [address]Xc# [phone] Urea nitrogen/Creatinine mass ratio 22 mg/mg Normal 15-24 [facility] Comment on above: Order Comment: Campu s: MIs This Patient Going To Surgery? YSurgery Date: 02/20/18 Performed By: #### L 500.50288, L500.43667, L500.96845 ####[facility] [id number] [place], [place] [address]Sq# [phone] GFR ESTon 07-22-2018 IF AMER 26 ML/MIN Normal [facility] Comment on above: Order Comment: Campu s: MIs This Patient Going To Surgery? YSurgery Date: 02/20/18 Performed By: #### L 500.26963, L500.43243, L500.49355 ####[facility] [id number] [place], [place] [address]Qo# [phone] IF non-AFR AMER 21 ML/MIN Normal [facility] Comment on above: Order Comment: Kahlil s: MIs This Patient Going To Surgery? YSurgery Date: 02/20/18 Performed By: #### L 500.16871, L500.79871, L500.28277 ####[facility] [id number] [place], [place] [address]Uj# [phone] GLUCOSE METERon 07-22-2018 Glucose mass conc 125 mg/dL Normal 85-125 [facility] Glucose mass conc 84 mg/dL Low 85-125 [facility] Glucose mass conc 85 mg/dL Normal 85-125 [facility] PBNP TESTon 07-22-2018 Natriuretic peptide B mass conc (Bld) 61964 pg/mL High 0-900 [facility] Comment on above: Order Comment: Kahlil s: MIs This Patient Going To Surgery? YSurgery Date: 02/20/18 Result Comment: NT-p roBNP results of less than 300 pg/ml effectively rulesout acute congestive heart failure with 99% negativepredictive value. Performed By: #### L 500.74667, L500.64729, L500.42500 ####[facility] [id number] [place], [place] [address]Ns# [phone] PROG IMSon 07-22-2018 Protein mass conc [facility] Patient Name: VALENTE QUINONES [facility] Date of : [address] [place] [address] Unit Number: [id number] Number: [id number] Note-Hospitalist Patient Status: ADM INAttending Doctor: Jensen Peguero DOService Date: 07/22/18 1431Chief ComplaintChief ComplaintRight hip painSubjectiveS: (2 ROS minimum)Remained asymptomatic with no chest pain or shortness of breath.Objective (ROS)Nursing VitalsVital Signs (Last)ResultDate TimePulse Pb4432 0815B/P143/6211 6784Yvkc42.011 5552Vgera7448 0819Imwj2394 0815O2 DeliveryNASAL MMWUHLD19/22 0440O2 Flow Twey021/22 0440General AppearanceComfortablePhysi sabrina ExamPhysical Examination NotesNeurological / Psychiatric Alert, Orientation [id number] EOMI, PERRLNeck No JVD, No Enlarged ThyroidRespiratory Normal Breathing Effort, Clear LungsCardiovascular Heart RRR, No M / R / GGastrointestinal Normal Bowel Sounds, Non TenderMusculoskeletal No EdemaSkin No Rash, Warm / DryDiagnostic Data:Medications CurrentSig/SchStart timeLastMedicationDoseRout eStop TimeStatusAdminAl Hydrox/Mg Hydrox/30 TYW3YHAM PRN109/16 1100ACSimethiconePO(MAALOX (ALAMAG)PLUSORAL LIQ)Vfsuiap662 GEGWBAFR58/22 2715PM83/26(ECOTRIN TAB.EC)NQ0458Naafdqnrxvxpd ne HCl25 BUI9IXOF PRN109/16 1100AC(BENADRYL CAP)PODocusate Qkemrns982 MGQ12H@21109/16 2099AC109/21(SURFAK CAP)FX8951Kimbejjbx Mesylate2 MGBID109/16 2099AC109/21(CARDURA TAB)IO8509Arezrmctdc Vacruq32 TMJ84M31/22 3424SR24/26(LOVENOX D.SYR)JC6893Wvjrpfxnvj54 MGBID.30AC109/21 7608FL74(LASIX TAB)SS7939Pwegrqyxjo757 MGQHS07/17 2200AC109/20(NEURONTIN CAP)ZN3397Qdhglcumlxy Bitart/1 NSJVW3ASPR PRN109/18 1430ACAcetaminophenPO(NORC O 5-325 TAB)Hydrocodone Bitart/2 ZWJRI1LYXG PRN109/18 0061XO63/26AcetaminophenPO 1353(NORCO 5-325 TAB)Hydromorphone HCl2 GKB5LHZV PRN109/16 1100AC(DILAUDID D.SYR)IMInsulin Oixuhsxf92 EVBEBFCU77/22 0025JB34/25(LANTUS SOLOSTAR PEN)DV4510Woaxcpa Human LisproSee SpgqKWBE44/21 1897EA11/25(humaLOG/novoLO G PEN)Insts (1)WD4535Aziacwuepqo4 AYWSYC00/21 1484RL32/25(XALATAN 0.005% VYCVGH4344YVMK)Pantoprazol e Oacylu11 VEUBOEYV55/22 4185AJ39/26(PROTONIX TAB)BA3637Mwqjcgmtmwz Rdpgdl04 MGQHS07/17 7132SJ78/25(PRAVACHOL TAB)VQ2852Qunauu Chloride3 BVJ8O00/21 1596PC68/25(Sodium EudqcxooLL60545.9% FLUSH D.SYR)Sodium Chloride3 MLPRN PRN109/16 1100AC(Sodium ChlorideIV0.9% FLUSH D.SYR)Tamsulosin HCl0.4 VWASQIIF32/25 7487BM95/26(FLOMAX CAP)AA0242Zchsuwguzogiytcj e QBp913 IFF4CYQQ PRN109/16 1100AC(TIGAN VIAL)IMZolpidem Tartrate5 MGQHSPRN PRN109/16 1100AC(AMBIEN TAB)PODose Instructions:(1)Insulin Human Lispro (humaLOG/novoLOG PEN):2-10 UnitsLab 24hr (CBC/BMP Fishbone)07/22/18 1110:Whole Bld Glucose 84 L109/21/17 0625:Whole Bld Glucose 0531:[Embedded Image Not Available]Anion Gap 8, Est GFR ( Amer) 26, Est GFR (Non-Af Amer) 21, BUN/Creatinine Ratio 22,Glucose 74, Total Calcium 7.4 L, Gst-R-Otekcpltsyi Pept 25093 H109/20/17 2034:Whole Bld Glucose 138 H109/20/17 1620:Whole [...] Medically clear for discharge if okay with chain carrier.DisclaimerThi s dictation was created using voice recognition software.Phonetic and/or minor grammatical errors may exist.eSign Date and TimeSigrid Hodge MD Verified/Reviewed by 07/22/18 1441 [facility] Protein mass [facility] PROG.NEPHon 07-22-2018 Protein mass [facility] Protein mass [facility] Patient Name: MAURI QUINONES[address] [employer] Date of : [address] [address] Unit Number: [id number] Number: [id number] Note-Nephrology Patient Status: ADM INAttending Doctor: Jensen Peguero DOService Date: 07/22/18 1152Progress Note-Nephrology([facility])Subj ectiveSubjective:Seen and examined. Up in a chair. Overall feels better. No acute events overnightObjectiveVital Signs:Vital Signs (Last)ResultDate TimePulse Kj3153/26 0815B/P143/6211 0811Gsgl06.011 3109Iilwm1250/26 8390Qnqf5710 0815O2 DeliveryNASAL QMJEXAP51/22 0440O2 Flow Irga346/22 0440IandO 24 Hour Gvwtiwz49/26 0000Intake Lurob7142Gocsgk Zzsmw6274Pmfywpl-82Iydfpi, HI189Zpomwf, Bsma7683Ayhwnb, Gwopn3Koomgr, Tbewa6826Aymu:Lungs-clearH eart-regularLower extremity-no edemaMedications:Medicatio ns CurrentSig/SchStart timeLastMedicationDoseRout eStop TimeStatusAdminAl Hydrox/Mg Hydrox/30 PFU3GNYB PRN109/16 1100ACSimethiconePO(MAALOX (ALAMAG)PLUSORAL LIQ)Xtnakgs777 EBRPSLKF48/22 2204HT99/26(ECOTRIN TAB.EC)AL5015Kohfvoombfbyj ne HCl25 ZXO0SGLW PRN109/16 1100AC(BENADRYL CAP)PODocusate Ztwruri293 MGQ12H@21109/16 2099AC109/21(SURFAK CAP)FY0721Tengvgvsg Mesylate2 MGBID109/16 9475QQ46/26(CARDURA TAB)OG9300Mvehxnzgxl Lseyke92 IKT68O18/22 2792EU81/26(LOVENOX D.SYR)BO1819Pomhghwbtn47 MGBID.30AC109/21 1761EY25(LASIX TAB)BW7138Lhuezprmna850 MGQHS07/17 2200AC109/20(NEURONTIN CAP)HJ1097Brixhneiphk Bitart/1 MNUZG3VKPG PRN109/18 1430ACAcetaminophenPO(NORC O 5-325 TAB)Hydrocodone Bitart/2 BOWHJ4HLIH PRN109/18 5463QY37/26AcetaminophenPO 0710(NORCO 5-325 TAB)Hydromorphone HCl2 EOF9NIFR PRN109/16 1100AC(DILAUDID D.SYR)IMInsulin Xaekubwy98 PQUNUOQH39/22 3914HQ77/25(LANTUS SOLOSTAR PEN)VY5749Dfukexy Human LisproSee PrifRLKX09/21 2592JB64/25(humaLOG/novoLO G PEN)Insts (1)LN2620Ciewjhcmjte6 MRXCBR2007/17 2200AC109/20(XALATAN 0.005% GAKILK3265QDDA)Pantoprazol e Lombph39 ZHFGJAIW79/22 3339PU49/26(PROTONIX TAB)XD0068Jqjefuuuqxt Jyeiol82 MGQHS07/17 0663AP39/25(PRAVACHOL TAB)OK6798Poolua Chloride3 ESM5F17/21 3545WL77/25(Sodium CkcetaafYF78675.9% FLUSH D.SYR)Sodium Chloride3 MLPRN PRN109/16 1100AC(Sodium ChlorideIV0.9% FLUSH D.SYR)Tamsulosin HCl0.4 RKPUOFIY77/25 9635QR78/26(FLOMAX CAP)IO1993Dlfhipsnfizbmnaq e INg653 IJO0MKHV PRN109/16 1100AC(TIGAN VIAL)IMZolpidem Tartrate5 MGQHSPRN PRN109/16 1100AC(AMBIEN [...] By: LOAN GUERRERO M.D.Lab Results:Lab 24hr (CBC/BMP [facility])07/22/18 1110:Whole Bld Glucose 84 L11 0625:Whole Bld Glucose 0531:[Embedded Image Not Available]Anion Gap 8, Est GFR ( Amer) 26, Est GFR (Non-Af Amer) 21, BUN/Creatinine Ratio 22,Glucose 74, Total Calcium 7.4 L, Wgv-U-Fisrecclcoi Pept 25147 H109/20/17 2034:Whole Bld Glucose 138 H109/20/17 1620:Whole Bld Glucose 193 HAssessment/PlanAssessment /Problem List:1. Acute renal failure superimposed on stage 3 chronic kidney diseaseAcuteo creatinine better today; stable electrolyteso clinically appears euvolemico continue p.o. Lasixo continue to hold VANESSA inhibitor until GARRET resolveso DC Btuler catheter; voiding trial; check PVR later this [...] Sullivan MD Verified/Reviewed by 07/22/18 1157 Normal [facility] PROG.ORTHOon 07-22-2018 Protein mass conc [facility] Patient Name: MAURI QUINONES[address] [employer] [place] Date of : [address] [address] Unit Number: [id number] Number: [id number] Note-Ortho Patient Status: ADM INAttending Doctor: Jensen Peguero DOService Date: 07/22/18 0944Progress Note - OrthoSubjectiveS: (2 ROS minimum)Patient seen and examined, continues to do very well. He is only complaining of minimalpain in his right hip that is well controlled with oral pain medications.ObjectiveNursi ng VitalsVital Signs (Last)ResultDate TimePulse Ii4663/25 2320B/P152/7411/25 2211Auqn69.411/25 4938Fyoyn9857/25 3163Nvfe9897/25 2320O2 DeliveryNASAL GQHEYIJ54/22 0440O2 Flow Axqn534/22 0440Physical ExamGeneral: Alert and oriented x3, no acute distressLE: SILT L2-S15/5 strength with DF/PF/EHL2+ distal pulses- calf tendernessDressing clean, dry, intactDiagnostic DataLab 24hr (CBC/BMP Fishbone)07/22/18 0625:Whole Bld Glucose 0531:[Embedded Image Not Available]Anion Gap 8, Est GFR ( Amer) 26, Est GFR (Non-Af Amer) 21, BUN/Creatinine Ratio 22,Glucose 74, Total Calcium 7.4 L, Grp-A-Dupchlpmrkg Pept 16706 07/21/18 2034:Whole Bld Glucose 138 H109/20/17 1620:Whole [...] minor grammatical errors may exist.eSign Date and Rigoberto Colon DO Verified/Reviewed by 07/22/18 Jensen Hewitt DO Normal [facility] Protein mass conc Normal [facility] BMPon 07-21-2018 Anion gap 3 molar conc 8 mmol/L Normal 5-16 [facility] Comment on above: Order Comment: Campu s: MIs This Patient Going To Surgery? YSurgery Date: 02/20/18 Performed By: #### L 500.09852, L500.37145 ####[facility] CESQMTQWIT8342 [place], [place] [address]Wa# [phone] Calcium mass conc 7.6 mg/dL Low 8.5-10.1 [facility] Comment on above: Order Comment: Campu s: MIs This Patient Going To Surgery? YSurgery Date: 02/20/18 Performed By: #### L 500.35544, L500.24809 ####[facility] HRIYJCZFPM9536 [place], [place] [address]Sn# [phone] Chloride molar conc 93 mmol/L Low 98-107 [facility] Comment on above: Order Comment: Campu s: MIs This Patient Going To Surgery? YSurgery Date: 02/20/18 Performed By: #### L 500.78198, L500.50108 ####[facility] TSHFUDZAZJ1297 [place], [place] [address]Sk# [phone] CO2 molar conc 27 mmol/L Normal 21-32 [facility] Comment on above: Order Comment: Campu s: MIs This Patient Going To Surgery? YSurgery Date: 02/20/18 Performed By: #### L 500.52556, L500.57778 ####[facility] TOFBCVJDZN0290 [place], [place] [address]Nb# [phone] Creatinine mass conc 3.310 mg/dL High 0.670-1.170 [facility] Comment on above: Order Comment: Campu s: MIs This Patient Going To Surgery? YSurgery Date: 02/20/18 Result Comment: Macrina ents receiving either N-Acetylcysteine (NAC) orMetamizole prior to venipuncture, may have falsely depressedresults. Performed By: #### L 500.38542, L500.52157 ####[facility] JUAZOYKHCV8087 [place], [place] [address]Aa# [phone] Glucose mass conc 74 mg/dL Normal 70-100 [facility] Comment on above: Order Comment: Campu s: MIs This Patient Going To Surgery? YSurgery Date: 02/20/18 Result Comment: 70-1 00- Normal Fasting; 100-125 Impaired Fasting; greaterthan 126 on more than one result- Diabetes. ADA guidelines.Results may be falsely elevated after the administration ofSulfapyridine.Results may be falsely depressed after the administration ofSulfasalazine. Performed By: #### L 500.76880, L500.92227 ####[facility] AJWGYWQXTZ9072 [place], [place] [address]Or# [phone] Potassium molar conc 5.0 mmol/L Normal 3.5-5.1 [facility] Comment on above: Order Comment: Campu s: MIs This Patient Going To Surgery? YSurgery Date: 02/20/18 Performed By: #### L 500.16078, L500.59936 ####[facility] NJGNWVCPVI8346 [place], [place] [address]Ty# [phone] Sodium molar conc 128 mmol/L Low 136-145 [facility] Comment on above: Order Comment: Campu s: MIs This Patient Going To Surgery? YSurgery Date: 02/20/18 Performed By: #### L 500.09933, L500.95445 ####[facility] RURHKOOBAZ4295 [place], [place] [address]Lr# [phone] Urea nitrogen mass conc 69 mg/dL High 7-26 [facility] Comment on above: Order Comment: Campu s: MIs This Patient Going To Surgery? YSurgery Date: 02/20/18 Performed By: #### L 500.00399, L500.84658 ####[facility] OVKCBWABRZ6559 [place], [place] [address]En# [phone] Urea nitrogen/Creatinine mass ratio 21 mg/mg Normal 15-24 [facility] Comment on above: Order Comment: Campu s: MIs This Patient Going To Surgery? YSurgery Date: 02/20/18 Performed By: #### L 500.21715, L500.40538 ####[facility] SYNCPJRWOC1731 [place], [place] [address]Ka# [phone] Anion gap 3 molar conc 8 mmol/L Normal 5-16 [facility] Comment on above: Order Comment: Campu s: MIs This Patient Going To Surgery? YSurgery Date: 02/20/18 Performed By: #### L 500.12659, L500.10165 ####[facility] YPAGZGVPGR0171 [place], [place] [address]Pn# [phone] Calcium mass conc 7.5 mg/dL Low 8.5-10.1 [facility] Comment on above: Order Comment: Campu s: MIs This Patient Going To Surgery? YSurgery Date: 02/20/18 Performed By: #### L 500.73733, L500.80970 ####[facility] MHFCJMYLKF9054 [place], [place] [address]Br# [phone] Chloride molar conc 91 mmol/L Low 98-107 [facility] Comment on above: Order Comment: Campu s: MIs This Patient Going To Surgery? YSurgery Date: 02/20/18 Performed By: #### L 500.30522, L500.14094 ####[facility] YJZTBDAIRE6454 [place], [place] [address]Hk# [phone] Order Comment: Kahlil s: M Performed By: #### L 500.30219, L500.33183, L500.48341, L500.37694 ####[facility] UXBAPYLIQB1205 [place], [place] [address]Rh# [phone] CO2 molar conc 27 mmol/L Normal 21-32 [facility] Comment on above: Order Comment: Kahlil s: MIs This Patient Going To Surgery? YSurgery Date: 02/20/18 Performed By: #### L 500.45912, L500.77823 ####[facility] NINCDBXMCX8595 [place], [place] [address]Rs# [phone] Creatinine mass conc 3.260 mg/dL High 0.670-1.170 [facility] Comment on above: Order Comment: Jorgeu s: MIs This Patient Going To Surgery? YSurgery Date: 02/20/18 Result Comment: Macrina ents receiving either N-Acetylcysteine (NAC) orMetamizole prior to venipuncture, may have falsely depressedresults. Performed By: #### L 500.88645, L5.02889 ####[facility] YQSWBKOMAV8946 [place], [place] [address]At# [phone] Glucose mass conc 154 mg/dL High 70-100 [facility] Comment on above: Order Comment: Jorgeu s: MIs This Patient Going To Surgery? YSurgery Date: 02/20/18 Result Comment: 70-1 00- Normal Fasting; 100-125 Impaired Fasting; greaterthan 126 on more than one result- Diabetes. ADA guidelines.Results may be falsely elevated after the administration ofSulfapyridine.Results may be falsely depressed after the administration ofSulfasalazine. Performed By: #### L 500.93272, L500.75156 ####[facility] CJDTEWIAND7436 [place], [place] [address]Vh# [phone] Potassium molar conc 5.0 mmol/L Normal 3.5-5.1 [facility] Comment on above: Order Comment: Campu s: MIs This Patient Going To Surgery? YSurgery Date: 02/20/18 Performed By: #### L 500.42134, L500.32289 ####[facility] SLNMVMNEGM8206 [place], [place] [address]Md# [phone] Sodium molar conc 126 mmol/L Low 136-145 [facility] Comment on above: Order Comment: Campu s: MIs This Patient Going To Surgery? YSurgery Date: 02/20/18 Performed By: #### L 500.67672, L500.87095 ####[facility] XEXLDDPOVU5638 [place], [place] [address]Ug# [phone] Urea nitrogen mass conc 68 mg/dL High 7-26 [facility] Comment on above: Order Comment: Campu s: MIs This Patient Going To Surgery? YSurgery Date: 02/20/18 Performed By: #### L 500.30101, L500.12028 ####[facility] IKWNRSOGWX7255 [place], [place] [address]Zt# [phone] Urea nitrogen/Creatinine mass ratio 21 mg/mg Normal 15-24 [facility] Comment on above: Order Comment: Campu s: MIs This Patient Going To Surgery? YSurgery Date: 02/20/18 Performed By: #### L 500.13144, L500.19062 ####[facility] DLXZPGXOCJ8908 [place], [place] [address]Ij# [phone] GFR ESTon 07-21-2018 IF AMER 23 ML/MIN Normal [facility] Comment on above: Order Comment: Campu s: MIs This Patient Going To Surgery? YSurgery Date: 02/20/18 Performed By: #### L 500.04478, L500.72447 ####[facility] ZUMEZILKFL0982 [place], [place] [address]Sj# [phone] IF non-AFR AMER 19 ML/MIN Normal [facility] Comment on above: Order Comment: Campu s: MIs This Patient Going To Surgery? YSurgery Date: 02/20/18 Performed By: #### L 500.38896, L500.24104 ####[facility] LGYQNOLWJP2456 [place], [place] [address]Zv# [phone] IF AMER 24 ML/MIN Normal [facility] Comment on above: Order Comment: Jorgeu s: MIs This Patient Going To Surgery? YSurgery Date: 02/20/18 Performed By: #### L 500.88463, L500.42829 ####[facility] HLGQYBKWSV7323 [place], [place] [address]Pc# [phone] IF non-AFR AMER 19 ML/MIN Normal [facility] Comment on above: Order Comment: Campu s: MIs This Patient Going To Surgery? YSurgery Date: 02/20/18 Performed By: #### L 500.06981, L500.87553 ####[facility] HONKZYZZQK2054 [place], [place] [address]Wx# [phone] Order Comment: Kahlil s: M Performed By: #### L 500.13482, L500.33288, L500.06214, L500.01188 ####[facility] JNEPDSJFSA4772 [place], [place] [address]Rw# [phone] GLUCOSE METERon 07-21-2018 Glucose mass conc 138 mg/dL High 85-125 [facility] Glucose mass conc 193 mg/dL High 85-125 [facility] Glucose mass conc 138 mg/dL High 85-125 [facility] Glucose mass conc 73 mg/dL Low 85-125 [facility] PROG IMSon 07-21-2018 [facility] Patient Name: MAURI QUINONES13[address] [facility] Date of : [address] [address] Unit Number: [id number] Number: [id number] Note-Hospitalist Patient Status: ADM INAttending Doctor: Jensen Peguero DOService Date: 07/21/18 1441Chief ComplaintChief ComplaintRight hip painSubjectiveS: (2 ROS minimum)Patient remained stable with no chest pain or shortness of breath, denied any abdominalpain nausea vomiting or diarrhea.Objective (ROS)Nursing VitalsVital Signs (Last)ResultDate TimePulse Fx6712 0745B/P139/6711 6214Vzon76.611 8986Betnc2829/25 3269Tatv0214/25 0745O2 DeliveryNASAL EWUJSUR10/22 0440O2 Flow Ulgg809/22 0440General AppearanceComfortablePhysi sabrina ExamPhysical Examination NotesNeurological / Psychiatric Alert, Orientation O6ZGWHP EOMI, PERRLNeck No JVD, No Enlarged ThyroidRespiratory Normal Breathing Effort, Clear LungsCardiovascular Heart RRR, No M / R / GGastrointestinal Normal Bowel Sounds, Non TenderMusculoskeletal No EdemaSkin No Rash, Warm / DryDiagnostic Data:Medications CurrentSig/SchStart timeLastMedicationDoseRout eStop TimeStatusAdminAl Hydrox/Mg Hydrox/30 HMV3FTPO PRN109/16 1100ACSimethiconePO(MAALOX (ALAMAG)PLUSORAL LIQ)Lyurknx546 UCNKBCKV50/22 2060AS09/25(ECOTRIN TAB.EC)VM1765Mbfnydcfwthwd ne HCl25 NLD7CRMT PRN109/16 1100AC(BENADRYL CAP)PODocusate Euescig311 MGQ12H@21109/16 0673UV48/25(SURFAK CAP)DU9733Nmmvvabay Mesylate2 MGBID109/16 3393AK86/25(CARDURA TAB)JK5448Ncljumymbh Cqtwsi75 NCC11E43/22 3546QB24/25(LOVENOX D.SYR)FX1580Ddhqoojtvu254 MGQHS07/17 6666ZA06/24(NEURONTIN CAP)XY8386Wvmwkafpkyk Bitart/1 URJOA1QOUW PRN109/18 1430ACAcetaminophenPO(NORC O 5-325 TAB)Hydrocodone Bitart/2 JSLNR7MNQY PRN109/18 3833MY19/25AcetaminophenPO 0755(NORCO 5-325 TAB)Hydromorphone HCl2 OBF2LBSU PRN109/16 1100AC(DILAUDID D.SYR)IMInsulin Tqtmjxqe96 FNSUOENL38/22 3680QO61/24(LANTUS SOLOSTAR PEN)KP0913Dzarhzd Human LisproSee ZxpaKXKN01/21 1533AQ83/24(humaLOG/novoLO G PEN)Insts (1)TP0281Abbmwirjoie6 QOMEVT4007/17 2200AC109/19(XALATAN 0.005% UTGQEK4370GOAT)Pantoprazol e Mqakiz56 UYJTQLDJ81/22 9040LA56/25(PROTONIX TAB)QL0674Qyrnzwpkzna Ixjogi68 MGQHS07/17 9043HE90/24(PRAVACHOL TAB)AM3474Clfhth Chloride3 MFE7A55/21 2869UU11/25(Sodium WqqfceafAY21890.9% FLUSH D.SYR)Sodium Chloride3 MLPRN PRN109/16 1100AC(Sodium ChlorideIV0.9% FLUSH D.SYR)Tamsulosin HCl0.4 BGCUPSXQ01/25 5426TE79/25(FLOMAX CAP)CY0346Fxeqzadwunahdivi e MYi465 IUL4LCNL PRN109/16 1100AC(TIGAN VIAL)IMZolpidem Tartrate5 MGQHSPRN PRN109/16 1100AC(AMBIEN [...] 2055:Whole Bld Glucose 197 H109/19/17 1839:Urine Osmolality 3164707/20/18 1619:Whole Bld Glucose 155 H109/19/17 1558:[Embedded Image Not Available]Serum Osmolality 297, Lxj-N-Nxfchktnptd Pept 76667 H, Thyroxine (T4) 8.5, T3 Uptake 38.0,TSH, [...] Date and TimeSigrid Hodge MD Verified/Reviewed by 07/21/18 1445 Normal [facility] PROG.NEPHon 07-21-2018 Protein mass conc [facility] Patient Name: VALENTE QUINONES [employer] Date of : [address] [address] Unit Number: [id number] Number: [id number] Note-Nephrology Patient Status: ADM INAttending Doctor: Jensen Peguero DOService Date: 07/21/18 0931Progress Note-Nephrology([facility])Subj ectiveSubjective:Seen and examined. Resting comfortably. No acute events overnight. Voided 2 L yguqgqsby77 mg of LasixObjectiveVital Signs:Vital Signs (Last)ResultDate TimePulse Mb1246/25 0745B/P139/6707/21 3692Pdqm27.6109/20 0240Dyesc7531/25 5364Catn2481/25 0745O2 DeliveryNASAL SQLIHOE13/22 0440O2 Flow Esnp253/22 0440IandO 24 Hour Pxkmbsc99/25 0000Intake Azadz0606Lbxked Pbvfk9654Nxoftxi5019Zelxvx , Mkgc7206Lwcmqh, Dnigx6Eoaucz, Bxqfl0388Oofn:Lungs-fine bibasilar cracklesHeart-regularLower extremity-no edemaMedications:Medicatio ns CurrentSig/SchStart timeLastMedicationDoseRout eStop TimeStatusAdminAl Hydrox/Mg Hydrox/30 NMM4PVMN PRN109/16 1100ACSimethiconePO(MAALOX (ALAMAG)PLUSORAL LIQ)Xolnikc929 WELTLMUX52/22 1480IB83/25(ECOTRIN TAB.EC)AI9235Kggidgfjwfsdc ne HCl25 BKA8BKBL PRN109/16 1100AC(BENADRYL CAP)PODocusate Azvnnoi690 MGQ12H@21109/16 2099AC109/20(SURFAK CAP)HC6323Sluabsins Mesylate2 MGBID109/16 4584JD54/25(CARDURA TAB)ZB0398Hzwzvnuguk Fqfuvp57 NGC49R97/22 0381SM82/25(LOVENOX D.SYR)BF7562Upydht Fxvoqg831 XHPZJH02/24 3358TS79/38LwjqmdfbnGM10/2 5 40283677(FERRLECIT AMP)Sodium Unontaog212 ML(Sodium Chloride0.9%)Zsaaeswfsv458 MGQHS07/17 2200AC109/19(NEURONTIN CAP)TX1019Onvydplbpcl Bitart/1 KIQRT7TYZE PRN109/18 1430ACAcetaminophenPO(NORC O 5-325 TAB)Hydrocodone Bitart/2 ZIVJC9OQOU PRN109/18 8137PU89/25AcetaminophenPO 0755(NORCO 5-325 TAB)Hydromorphone HCl2 WSK3OHQP PRN109/16 1100AC(DILAUDID D.SYR)IMInsulin Smoymyhi03 YNVNNBMH36/22 6124PY68/24(LANTUS SOLOSTAR PEN)OK9092Vxnjbfz Human LisproSee KvsfNLBT94/21 8867TG42/24(humaLOG/novoLO G PEN)Insts (1)AN3902Efmjqdmtyly7 BYQBTX1407/17 2200AC109/19(XALATAN 0.005% DGIRYE1634JTJQ)Pantoprazol e Yfosbp06 VIVRCDFP42/22 8709IC30/25(PROTONIX TAB)CR9096Wioacmcobzc Htqojn23 MGQHS07/17 2200AC109/19(PRAVACHOL TAB)VS0288Npomlk Chloride3 QNJ8J40/21 9836OM13/25(Sodium DijitwbkGX16923.9% FLUSH D.SYR)Sodium Chloride3 MLPRN PRN109/16 1100AC(Sodium ChlorideIV0.9% FLUSH D.SYR)Trimethobenzamide FGl990 WOX0RCHA PRN109/16 1100AC(TIGAN VIAL)IMZolpidem Tartrate5 MGQHSPRN PRN109/16 1100AC(AMBIEN [...] 2055:Whole Bld Glucose 197 H109/19/17 1839:Urine Osmolality 18254 1619:Whole Bld Glucose 155 H109/19/17 1558:[Embedded Image Not Available]Serum Osmolality 297, Xvx-U-Zmcxziyvdqc Pept 50340 H, Thyroxine (T4) 8.5, T3 Uptake 38.0,TSH, Ultra Sensitive 1.2234107/20/18 1127:Whole Bld Glucose 152 HAssessment/PlanAssessment /Problem List:1. [...] TimeJameson Sullivan MD Verified/Reviewed by 07/21/18 0936 [facility] Protein [facility] PROG.ORTHOon 07-21-2018 Protein mass [facility] Protein mass [facility] Patient Name: VALENTE QUINONES [employer] Date of : [address] [address] Unit Number: [id number] Number: [id number] Note-Ortho Patient Status: ADM INAttending Doctor: Jensen [...] he would like.ObjectiveNursing VitalsVital Signs (Last)ResultDate TimePulse Lf8496/24 2320B/P146/7511/24 6917Lvvm08.411/24 3448Rhfnv739924 6375Nail505824 2320O2 DeliveryNASAL ZWQTQQX04/22 0440O2 Flow Qnqn320/22 0440Physical ExamRLEDressing dry and intact.Skin surrounding incision [...] 2055:Whole Bld Glucose 197 H109/19/17 1839:Urine Osmolality 50362/18 1619:Whole Bld Glucose 155 H118 1558:[Embedded Image Not Available]Serum Osmolality 297, Ceh-U-Vtxsqnuovnk Pept 37431 H, Thyroxine (T4) 8.5, T3 Uptake 38.0,TSH, Ultra Sensitive 1.4892907/20/18 1127:Whole Bld Glucose 152 H118 0833:Troponin I 0.020Assessment/PlanConclu sion1. ArthritisChronicPatient is postop [...] minor grammatical errors may exist.eSign Date and Rigoberto Colon DO Verified/Reviewed by 07/21/18 Jensen Fuller DO Normal [facility] BMPon 07-20-2018 Anion gap 3 molar conc 9 mmol/L Normal -16 [facility] Comment on above: Order Comment: Campu s: M Performed By: #### L 500.50924, L500.92307, L500.86286, L500.63851 ####[facility] ZLTCYTFTNK2032 [place], [place] [address]Uq# [phone] Calcium mass conc 7.6 mg/dL Low 8.5-10.1 [facility] Comment on above: Order Comment: Campu s: M Performed By: #### L 500.28089, L500.24683, L500.84491, L500.59172 ####[facility] USGBPWMTMP9698 [place], [place] [address]Be# [phone] CO2 molar conc 28 mmol/L Normal 21-32 [facility] Comment on above: Order Comment: Campu s: M Performed By: #### L 500.80401, L500.11280, L500.94308, L500.56871 ####[facility] ROEHSTHZZB6818 [place], [place] [address]Pl# [phone] Creatinine mass conc 3.360 mg/dL High 0.670-1.170 [facility] Comment on above: Order Comment: Campu s: M Result Comment: Macrina ents receiving either N-Acetylcysteine (NAC) orMetamizole prior to venipuncture, may have falsely depressedresults. Performed By: #### L 500.32971, L500.64185, L500.31418, L500.26721 ####[facility] LYSQEZYUNH0350 [place], [place] [address]Cu# [phone] Glucose mass conc 115 mg/dL High 70-100 [facility] Comment on above: Order Comment: Campu s: M Result Comment: 70-1 00- Normal Fasting; 100-125 Impaired Fasting; greaterthan 126 on more than one result- Diabetes. ADA guidelines.Results may be falsely elevated after the administration ofSulfapyridine.Results may be falsely depressed after the administration ofSulfasalazine. Performed By: #### L 500.97614, L500.28145, L500.68027, L500.67876 ####[facility] LCAKMUHIWU0413 [place], [place] [address]Zu# [phone] Sodium molar conc 128 mmol/L Low 136-145 [facility] Comment on above: Order Comment: Campu s: M Performed By: #### L 500.39234, L500.02772, L500.78820, L500.70268 ####[facility] DQBNPXMPCD0880 [place], [place] [address]Ip# [phone] Urea nitrogen/Creatinine mass ratio 19 mg/mg Normal 15-24 [facility] Comment on above: Order Comment: Campu s: M Performed By: #### L 500.43429, L500.45303, L500.22277, L500.78303 ####[facility] LLNNQSMETW3686 [place], [place] [address]Cf# [phone] Anion gap 3 molar conc 8 mmol/L Normal 5-16 [facility] Comment on above: Order Comment: Campu s: M Performed By: #### L 500.58485, L500.83299, L500.20053, L500.16435 ####[facility] BNUSMRSWCW1327 [place], [place] [address]Zg# [phone] Calcium mass conc 7.8 mg/dL Low 8.5-10.1 [facility] Comment on above: Order Comment: Campu s: M Performed By: #### L 500.48872, L500.48050, L500.79548, L500.61194 ####[facility] ENWCWPOOZJ3769 [place], [place] [address]Vl# [phone] Chloride molar conc 92 mmol/L Low 98-107 [facility] Comment on above: Order Comment: Campu s: M Performed By: #### L 500.15621, L500.57163, L500.57833, L500.18775 ####[facility] YPREXGATMD2656 [place], [place] [address]Av# [phone] CO2 molar conc 29 mmol/L Normal 21-32 [facility] Comment on above: Order Comment: Campu s: M Performed By: #### L 500.69818, L500.76662, L500.26078, L500.21573 ####[facility] WFVKNKJBEW9160 [place], [place] [address]Ek# [phone] Creatinine mass conc 3.280 mg/dL High 0.670-1.170 [facility] Comment on above: Order Comment: Campu s: M Result Comment: Macrina ents receiving either N-Acetylcysteine (NAC) orMetamizole prior to venipuncture, may have falsely depressedresults. Performed By: #### L 500.24470, L500.54420, L500.13022, L500.14652 ####[facility] DAFJIIUECT4315 [place], [place] [address]Vt# [phone] Glucose mass conc 119 mg/dL High 70-100 [facility] Comment on above: Order Comment: Campu s: M Result Comment: 70-1 00- Normal Fasting; 100-125 Impaired Fasting; greaterthan 126 on more than one result- Diabetes. ADA guidelines.Results may be falsely elevated after the administration ofSulfapyridine.Results may be falsely depressed after the administration ofSulfasalazine. Performed By: #### L 500.96493, L500.65636, L500.52552, L500.30027 ####[facility] UWUXLLSJRG2404 [place], [place] [address]Uw# [phone] Potassium molar conc 5.4 mmol/L High 3.5-5.1 [facility] Comment on above: Order Comment: Campu s: M Performed By: #### L 500.77332, L500.45674, L500.36032, L500.46852 ####[facility] SYPZCQUXTH2412 [place], [place] [address]Eb# [phone] Sodium molar conc 129 mmol/L Low 136-145 [facility] Comment on above: Order Comment: Campu s: M Performed By: #### L 500.74848, L500.99398, L500.57340, L500.03496 ####[facility] ULUCGJOMAW1362 [place], [place] [address]Hd# [phone] Urea nitrogen mass conc 64 mg/dL High 7-26 [facility] Comment on above: Order Comment: Campu s: M Performed By: #### L 500.78410, L500.41804, L500.42283, L500.37706 ####[facility] ZPGFFBZRYS3659 [place], [place] [address]Nn# [phone] Urea nitrogen/Creatinine mass ratio 20 mg/mg Normal 15-24 [facility] Comment on above: Order Comment: Campu s: M Performed By: #### L 500.27141, L500.84740, L500.44938, L500.30682 ####[facility] PXVHZAFZTW2472 [place], [place] [address]Si# [phone] CBCon 07-20-2018 Erythrocyte distribution width Auto Ratio (RBC) 17.5 % High 11-14.5 [facility] Comment on above: Order Comment: Campu s: M Performed By: #### L 500.40226, L500.86212, L500.93606, L500.15873 ####[facility] JTZGLEKZFP7322 [place], [place] [address]Me# [phone] Hematocrit Auto Volume Fraction (Bld) 29.6 % Low 41.0-53.0 [facility] Comment on above: Order Comment: Campu s: M Performed By: #### L 500.10537, L500.64861, L500.94923, L500.18099 ####[facility] HKJVDICLUD3780 [place], [place] [address]Tp# [phone] Hemoglobin mass conc (Bld) 9.4 g/dL Low 13.5-17.5 [facility] Comment on above: Order Comment: Campu s: M Performed By: #### L 500.43534, L500.89067, L500.47383, L500.38484 ####[facility] LIPLVYMYTF4167 [place], [place] [address]Lj# [phone] MCHC Auto mass conc (RBC) 31.8 g/dL Low 32.0-36.0 [facility] Comment on above: Order Comment: Campu s: M Performed By: #### L 500.69521, L500.96557, L500.45448, L500.99344 ####[facility] [id number] [place], [place] [address]Dw# [phone] MCV Auto Entitic volume (RBC) 92.5 fL Normal 80.0-99.0 [facility] Comment on above: Order Comment: Campu s: M Performed By: #### L 500.60966, L500.06465, L500.29713, L500.49919 ####[facility] [id number] [place], [place] [address]Ev# [phone] Nucleated RBC/100 WBC Ratio (Bld) 0.0 % Normal Less than 1 [facility] Comment on above: Order Comment: Campu s: M Performed By: #### L 500.53699, L500.28271, L500.07476, L500.60600 ####[facility] [id number] [place], [place] [address]Oa# [phone] Platelet mean volume Auto Entitic volume (Bld) 10.0 fL Normal 9.4-12.4 [facility] Comment on above: Order Comment: Campu s: M Performed By: #### L 500.87526, L500.23953, L500.51224, L500.38512 ####[facility] [id number] [place] [id number]# [phone] Platelets Auto #/vol (Bld) 193 K/CU MM Normal 150-450 [facility] Comment on above: Order Comment: Campu s: M Performed By: #### L 500.42939, L500.20661, L500.27044, L500.96166 ####[address] [address]Fz# [phone] RBC Auto #/vol (Bld) 3.20 M/CU MM Low 4.50-6.00 [facility] Comment on above: Order Comment: Campu s: M Performed By: #### L 500.55483, L500.68811, L500.70455, L500.94282 ####[facility] [id number] [place], [place] [address]Bu# [phone] WBC Auto #/vol (Bld) 7.4 K/CU MM Normal 4.5-11.0 [facility] Comment on above: Order Comment: Campu s: M Performed By: #### L 500.13751, L500.57204, L500.33280, L500.61775 ####[facility] [id number] [place] [address]Dd# [phone] GFR ESTon 07-20-2018 IF AMER 23 ML/MIN Normal [facility] Comment on above: Order Comment: Campu s: M Performed By: #### L 500.90555, L500.61955, L500.38538, L500.71847 ####[facility] [id number] [place], [place] [address]Jm# [phone] IF non-AFR AMER 19 ML/MIN Normal [facility] Comment on above: Order Comment: Kahlil s: M Performed By: #### L 500.43551, L500.71207, L500.51833, L500.98301 ####[facility] [id number] [place], [place] [address]Mf# [phone] GLUCOSE METERon 07-20-2018 Glucose mass conc 197 mg/dL High 85-125 [facility] Glucose mass conc 155 mg/dL High 85-125 [facility] conc 152 mg/dL High 85-125 [facility] Glucose mass conc 124 mg/dL Normal 85-125 [facility] Demetrius 07-20-2018 Potassium molar conc 5.8 mmol/L High 3.5-5.1 [facility] Comment on above: Order Comment: Kahlil s: MIs This Patient Going To Surgery? YSurgery Date: 02/20/18 Performed By: #### L 500.47459, L500.35564, L500.39140, L500.51722 ####[facility] ANPNUMXMEW2773 [place], [place] [address]Gg# [phone] OSMO SERUMon 07-20-2018 OSMO SERUM 297 MOSM/KG Normal 280-300 [facility] Comment on above: Order Comment: Kahlil s: MIs This Patient Going To Surgery? YSurgery Date: 02/20/18 Performed By: #### L 500.43264, L500.13532, L500.59999, L500.18655 ####[facility] JNFNCRZRZH9837 [place], [place] [address]Ey# [phone] PBNP TESTon 07-20-2018 Natriuretic peptide B mass conc (Bld) 31721 pg/mL High 0-900 [facility] Comment on above: Order Comment: Kahlil s: MIs This Patient Going To Surgery? YSurgery Date: 02/20/18 Result Comment: NT-p roBNP results of less than 300 pg/ml effectively rulesout acute congestive heart failure with 99% negativepredictive value. Performed By: #### L 500.74198, L500.90344, L500.73506, L500.72987 ####[facility] [id number] [place], [place] [address]Rj# [phone] PROG IMSon 07-20-2018 Protein mass conc Normal [facility] Protein mass conc [facility] Patient Name: MAURI QUINONES[address] [facility] [address] Date of : [address], [place] [address] Unit Number: [id number] Number: [id number] Note-Hospitalist Patient Status: ADM INAttending Doctor: Jensen Peguero DOService Date: 07/20/18 1452Chief ComplaintChief ComplaintRight hip painSubjectiveS: (2 ROS minimum)No chest pain or shortness of breath, no abdominal pain nausea or vomiting.Objective (ROS)Nursing VitalsVital Signs (Last)ResultDate TimePulse Bs6150 0802B/P125/7011 4854Ldli92.911 1560Oouik2864 8673Yywo1990/24 0802O2 DeliveryNASAL NDKOUWX41/22 0440O2 Flow Uqzy446/22 0440General AppearanceComfortablePhysi sabrina ExamPhysical Examination NotesNeurological / Psychiatric Alert, Orientation B4XERWT EOMI, PERRLNeck No JVD, No Enlarged ThyroidRespiratory Normal Breathing Effort, Clear LungsCardiovascular Heart RRR, No M / R / GGastrointestinal Normal Bowel Sounds, Non TenderMusculoskeletal No EdemaSkin No Rash, Warm / DryDiagnostic Data:Medications CurrentSig/SchStart timeLastMedicationDoseRout eStop TimeStatusAdminAl Hydrox/Mg Hydrox/30 KTE2SFYA PRN109/16 1100ACSimethiconePO(MAALOX (ALAMAG)PLUSORAL LIQ)Okyopjw679 MOZDSKXF90/22 7222RC83/24(ECOTRIN TAB.EC)CE2013Fitmybxjgxnwc ne HCl25 NCC9WINT PRN109/16 1100AC(BENADRYL CAP)PODocusate Wvelxaz445 MGQ12H@2099AC109/19(SURFAK CAP)QX2353Zextejsyt Mesylate2 MGBID109/16 8253SD83/24(CARDURA TAB)KR2152Xibjcejxea Jfskat68 XKO50E80/22 7199CW95/24(LOVENOX D.SYR)DO7188Gekclk Lxntyf021 HWVJYE58/24 2724URHejryxzxeGW93 0959(FERRLECIT AMP)Sodium Prwndzme199 ML(Sodium Chloride0.9%)Usbhhblqvf518 MGQHS07/17 2216HD42/23(NEURONTIN CAP)LO5086Ujmjspjzxjl Bitart/1 MIMZH2NVRN PRN109/18 1430ACAcetaminophenPO(NORC O 5-325 TAB)Hydrocodone Bitart/2 FMONW1MUSZ PRN109/18 4400OQ77/24AcetaminophenPO 1320(NORCO 5-325 TAB)Hydromorphone HCl2 IGW8ASOH PRN109/16 1100AC(DILAUDID D.SYR)IMInsulin Iqkcpfsx24 RGNTDXOL88/22 3208SF63/22(LANTUS SOLOSTAR PEN)PV2675Yfhtogg Human LisproSee JjaqHXNT55/21 3472XG65/24(humaLOG/novoLO G PEN)Insts (1)BI0585Ugefktgryxa8 EQKBUR7107/17(XALATAN 0.005% MSFVJC5382ZDYX)Pantoprazol e Hmtzlz06 VJCTNTAY71/22 5667JM89/24(PROTONIX TAB)PM9263Rcjjtdawrhl Hdipwn75 MGQHS07/17 2200AC109/18(PRAVACHOL TAB)WK8366Kacukp Chloride3 CZJ2L52/21 0796SY80/24(Sodium XkdgiqtkGH26183.9% FLUSH D.SYR)Sodium Chloride3 MLPRN PRN109/16 1100AC(Sodium ChlorideIV0.9% FLUSH D.SYR)Trimethobenzamide FWr482 XZD5PURE PRN109/16 1100AC(TIGAN VIAL)IMZolpidem Tartrate5 MGQHSPRN PRN109/16 1100AC(AMBIEN TAB)PODose Instructions:(1)Insulin Human Lispro (humaLOG/novoLOG PEN):2-10 UnitsLab 24hr (CBC/BMP Fishbone)07/20/18 1127:Whole Bld Glucose 152 H109/19/17 0833:Troponin I 0.81767 0617:Whole Bld Glucose 80734 0608:[Embedded Image Not Available]Anion Gap 9, Est [...] MPV10.0, Nucleated RBCs 0.011 2045:Whole Bld Glucose 89872 1604:Whole Bld Glucose 119Assessment and PlanConclusion1. 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 ArthritisChronicTo [...] Date and TimeSigrid Hodge MD Verified/Reviewed by 07/20/18 1459 [facility] PROG.ORTHOon 07-20-2018 Protein mass conc MTDD Normal [facility] Protein mass conc Normal [facility] THYROID PRO/TSHon 07-20-2018 T3 UP 38.0 % Normal 33.0-40.0 [facility] Comment on above: Order Comment: Jorgeu s: MIs This Patient Going To Surgery? YSurgery Date: 02/20/18 Performed By: #### L 500.72740, L500.36645, L500.61135, L500.71152 ####[facility] LQUWSPVPCT1834 [place], [place] [address]Qy# [phone] T4 8.5 UG/DL Normal 4.5-12.1 [facility] Comment on above: Order Comment: Jorgeu s: MIs This Patient Going To Surgery? YSurgery Date: 02/20/18 Result Comment: RESU LTS MAY BE FALSELY ELEVATED AFTER THE ADMINISTRATION OFSULFASALAZINE. Performed By: #### L 500.61978, L500.21886, L500.24785, L500.06771 ####[facility] ADZAMYMEBX2175 [place], [place] [address]Rb# [phone] Thyrotropin Qn 1.150 UIU/ML Normal 0.358-3.740 [facility] Comment on above: Order Comment: Jorgeu s: MIs This Patient Going To Surgery? YSurgery Date: 02/20/18 Result Comment: 3rd generation ultra sensitive TSH Performed By: #### L 500.00436, L500.74813, L500.02810, L500.98067 ####[facility] [id number] [place], [place] [address]Zr# [phone] TROPONIN Ion 07-20-2018 Troponin I.cardiac mass conc 0.020 ng/mL Normal 0.000-0.045 [facility] Comment on above: Order Comment: Kahlil s: MIs This Patient Going To Surgery? YSurgery Date: 02/20/18 Performed By: #### L 550.58811 ####[facility] NAACHEKARQ2123 [place], [place] [address]Vb# [phone] UR OSMOon 07-20-2018 UR OSMO 237 MOSM/KG Normal 50-1200 [facility] Comment on above: Order Comment: Campu s: MIs This Patient Going To Surgery? YSurgery Date: 02/20/18 Performed By: #### L 600.57479 ####[facility] JCHDQYGXQM8462 [place], [place] [address]Ju# [phone] BMPon 07-19-2018 Anion gap 3 molar conc 7 mmol/L Normal 5-16 [facility] Comment on above: Order Comment: Campu s: M Performed By: #### L 500.02575, L500.74129, L500.95614, L500.26361 ####[facility] [id number] [place], [place] [address]Ef# [phone] Calcium mass conc 7.6 mg/dL Low 8.5-10.1 [facility] Comment on above: Order Comment: Campu s: M Performed By: #### L 500.43554, L500.24885, L500.27017, L500.28902 ####[facility] WAFBPUELAZ4169 [place], [place] [address]Ju# [phone] Chloride molar conc 92 mmol/L Low 98-107 [facility] Comment on above: Order Comment: Campu s: M Performed By: #### L 500.92844, L500.53471, L500.70993, L500.31728 ####[facility] BDXERGGBJH3920 [place], [place] [address]Qp# [phone] CO2 molar conc 28 mmol/L Normal 21-32 [facility] Comment on above: Order Comment: Campu s: M Performed By: #### L 500.36843, L500.75457, L500.67092, L500.28837 ####[facility] YUGWSVKLGI0745 [place], [place] [address]Yl# [phone] Creatinine mass conc 3.150 mg/dL High 0.670-1.170 [facility] Comment on above: Order Comment: Campu s: M Result Comment: Macrina ents receiving either N-Acetylcysteine (NAC) orMetamizole prior to venipuncture, may have falsely depressedresults. Performed By: #### L 500.99359, L500.17757, L500.30395, L500.03985 ####[facility] WNPBUTOSGO6481 [place], [place] [address]Ru# [phone] Glucose mass conc 73 mg/dL Normal 70-100 [facility] Comment on above: Order Comment: Campu s: M Result Comment: 70-1 00- Normal Fasting; 100-125 Impaired Fasting; greaterthan 126 on more than one result- Diabetes. ADA guidelines.Results may be falsely elevated after the administration ofSulfapyridine.Results may be falsely depressed after the administration ofSulfasalazine. Performed By: #### L 500.38220, L500.46041, L500.15234, L500.67368 ####[facility] PRJSBBSUMV8535 [place], [place] [address]Jz# [phone] Potassium molar conc 5.3 mmol/L High 3.5-5.1 [facility] Comment on above: Order Comment: Campu s: M Performed By: #### L 500.66537, L500.83221, L500.56324, L500.16792 ####[facility] NEHOKADUTD4261 [place], [place] [address]Qd# [phone] Sodium molar conc 128 mmol/L Low 136-145 [facility] Comment on above: Order Comment: Campu s: M Performed By: #### L 500.28732, L500.42983, L500.23394, L500.25533 ####[facility] CCJCJIFMNR0684 [place], [place] [address]Cv# [phone] Urea nitrogen mass conc 58 mg/dL High 7-26 [facility] Comment on above: Order Comment: Campu s: M Performed By: #### L 500.57944, L500.12223, L500.55149, L500.89257 ####[facility] XONBJVZVTV9804 [place], [place] [address]Pd# [phone] Urea nitrogen/Creatinine mass ratio 19 mg/mg Normal 15-24 [facility] Comment on above: Order Comment: Campu s: M Performed By: #### L 500.20271, L500.38961, L500.16154, L500.44986 ####[facility] KKZLKVZRRI5803 [place], [place] [address]Cz# [phone] CBCon 07-19-2018 Erythrocyte distribution width Auto Ratio (RBC) 17.9 % High 11-14.5 [facility] Comment on above: Order Comment: Campu s: M Performed By: #### L 500.66262, L500.33189, L500.64451, L500.16844 ####[facility] TIYLUJCTMW0571 [place], [place] [address]Vx# [phone] Hematocrit Auto Volume Fraction (Bld) 28.8 % Low 41.0-53.0 [facility] Comment on above: Order Comment: Campu s: M Performed By: #### L 500.29789, L500.07874, L500.41764, L500.86896 ####[facility] GHCMTRCMDM0248 [place], [place] [address]Ma# [phone] Hemoglobin mass conc (Bld) 9.0 g/dL Low 13.5-17.5 [facility] Comment on above: Order Comment: Campu s: M Performed By: #### L 500.50421, L500.81017, L500.59711, L500.91659 ####[facility] MPGXVARPAI4651 [place], [place] [address]Jj# [phone] MCHC Auto mass conc (RBC) 31.3 g/dL Low 32.0-36.0 [facility] Comment on above: Order Comment: Campu s: M Performed By: #### L 500.13521, L500.45242, L500.10426, L500.94780 ####[facility] HAMDDKDJYC6052 [place], [place] [address]Go# [phone] MCV Auto Entitic volume (RBC) 92.3 fL Normal 80.0-99.0 [facility] Comment on above: Order Comment: Campu s: M Performed By: #### L 500.09069, L500.05738, L500.43843, L500.21681 ####[facility] VHZJQJQTJF5193 [place], [place] [address]Om# [phone] Nucleated RBC/100 WBC Ratio (Bld) 0.2 % Normal Less than 1 [facility] Comment on above: Order Comment: Campu s: M Performed By: #### L 500.76811, L500.97063, L500.80582, L500.53971 ####[address] [address]Nj# [phone] Platelet mean volume Auto Entitic volume (Bld) 9.8 fL Normal 9.4-12.4 [facility] Comment on above: Order Comment: Campu s: M Performed By: #### L 500.71327, L500.83448, L500.08644, L500.78302 ####[facility] [id number] [place] [address]Zf# [phone] Platelets Auto #/vol (Bld) 188 K/CU MM Normal 150-450 [facility] Comment on above: Order Comment: Campu s: M Performed By: #### L 500.26578, L500.24453, L500.51771, L500.62821 ####[facility] [id number] [place] [address]Fx# [phone] RBC Auto #/vol (Bld) 3.12 M/CU MM Low 4.50-6.00 [facility] Comment on above: Order Comment: Campu s: M Performed By: #### L 500.50434, L500.11516, L500.79298, L500.57404 ####[facility] [id number] [place] [address]Ry# [phone] WBC Auto #/vol (Bld) 9.9 K/CU MM Normal 4.5-11.0 [facility] Comment on above: Order Comment: Campu s: M Performed By: #### L 500.27518, L500.12928, L500.73576, L500.88214 ####[facility] WNBHZJCUDS5502 [place], [place] [address]Du# [phone] GFR ESTon 07-19-2018 IF AMER 25 ML/MIN [facility] Comment on above: Order Comment: Campu s: M Performed By: #### L 500.84730, L500.50058, L500.22779, L500.67574 ####[facility] WUZPAYAAZZ2712 [place], [place] [address]Ye# [phone] IF non-AFR AMER 20 ML/MIN [facility] Comment on above: Order Comment: Campu s: M Performed By: #### L 500.29599, L500.18828, L500.51122, L500.39441 ####[facility] JKXEIJEMRP2276 [place], [place] [address]Ek# [phone] GLUCOSE METERon 07-19-2018 Glucose mass conc 117 mg/dL Normal 85-125 [facility] Glucose mass conc 119 mg/dL Normal 85-125 [facility] Glucose mass conc 124 mg/dL Normal 85-125 [facility] Glucose mass conc 76 mg/dL Low 85-125 [facility]on 07-19-2018 Protein mass conc Normal [facility] Protein mass conc [facility] Patient Name: MAURI QUINONES[address] [facility] [address] Date of : [address] [address] Unit Number: [id number] Number: [id number] Note-Hospitalist Patient Status: ADM INAttending Doctor: Jensen Peguero DOService Date: 07/19/18 1418Chief ComplaintChief ComplaintRight hip painSubjectiveS: (2 ROS minimum)No chest pain or shortness of breath, no abdominal pain nausea or vomiting, patient feelspretty good and denied any specific symptoms, he continued to have urinary retention andhad a Butler catheter placed.Objective (ROS)Nursing VitalsVital Signs (Last)ResultDate TimePulse Tg0096 0730B/P145/7311/ 1330Wndu12.411/ 8861Mzhih9716 5426Tqsb3664 0730O2 DeliveryNASAL LSCGLHM21/22 0440O2 Flow Alro277/22 0440General AppearanceComfortablePhysi sabrina ExamPhysical Examination NotesNeurological / Psychiatric Alert, Orientation Z9MEVIB EOMI, PERRLNeck No JVD, No Enlarged ThyroidRespiratory Normal Breathing Effort, Clear LungsCardiovascular Heart RRR, No M / R / GGastrointestinal Normal Bowel Sounds, Non TenderMusculoskeletal No EdemaSkin No Rash, Warm / DryDiagnostic Data:Medications CurrentSig/SchStart timeLastMedicationDoseRout eStop TimeStatusAdminAl Hydrox/Mg Hydrox/30 EQS7EEWC PRN109/16 1100ACSimethiconePO(MAALOX (ALAMAG)PLUSORAL LIQ)Cjclcys942 PQJQNUMK09/22 3189SD89/23(ECOTRIN TAB.EC)EB9881Pldeyjsniedmh ne HCl25 XVK9DTJO PRN109/16 1100AC(BENADRYL CAP)PODocusate Jbyclhd308 MGQ12H@2099AC109/18(SURFAK CAP)JW0830Ycoqsscsz Mesylate2 MGBID109/16 2099AC109/18(CARDURA TAB)LC9989Djahcaznam Kmymks47 KBO99Q96/22 1341XM68/23(LOVENOX D.SYR)CO6894Aitqvnijpx050 MGQHS07/17 2200AC109/17(NEURONTIN CAP)TT2508Rimbkopxbdvsi HCl2 TAY7DTXG PRN109/16 1100AC(DILAUDID D.SYR)IMInsulin Nznbluko32 CIJMFCNU08/22 6420KF05/22(LANTUS SOLOSTAR PEN)XE6928Twnqihc Human LisproSee GogxKBDP15/21 5348OP61/22(humaLOG/novoLO G PEN)Insts (1)ZU1034Xhivtcjtbmc3 MDDRHC80/21 4760UH23/22(XALATAN 0.005% MIRAML4819MEBN)Pantoprazol e Kohgmm95 UXKFHPXN94/22 3004CI00/23(PROTONIX TAB)AF2004Qhrautgaefi Kthbkg40 MGQHS07/17 0289WV99/22(PRAVACHOL TAB)RF7043Lniapi Chloride3 KLM7T43/21 6117VA80/23(Sodium EfemhushAQ22676.9% FLUSH D.SYR)Sodium Chloride3 MLPRN PRN109/16 1100AC(Sodium ChlorideIV0.9% FLUSH D.SYR)Trimethobenzamide JLv223 OBK6KRIE PRN109/16 1100AC(TIGAN VIAL)IMZolpidem Tartrate5 MGQHSPRN PRN109/16 1100AC(AMBIEN TAB)PODose Instructions:(1)Insulin Human Lispro (humaLOG/novoLOG PEN):2-10 UnitsLab 24hr (CBC/BMP Fishbone)07/19/18 1140:Ur Random Sodium 22, Ur Random Potassium 32.8, Ur Random Chloride LESS THAN 1140:Urine Color Yellow, Urine Appearance Hazy, Urine pH 5.0, Ur Specific [place] 1.009, UrineProtein 30, Urine Glucose (UA) NEG, Urine Ketones NEGATIVE, Urine Blood SMALL, UrineNitrite NEGATIVE, Urine Bilirubin NEGATIVE, Urine Urobilinogen NEG, Ur Leukocyte Guwgchrm79, Urine RBC 8 H, Urine WBC 2, Ur Squamous Epith Cells 0, Urine Bacteria TRACE, HyalineCasts 1, Urine Mucus TRACE07/19/18 1105:Whole Bld Glucose 23384 0855:Troponin I 0.0876207/19/18 0619:Whole Bld Glucose 76 L109/18/17 0444:[Embedded Image Not Available]Anion Gap 7, Est GFR ( Amer) 25, Est GFR (Non-Af Amer) 20, BUN/Creatinine Ratio 19,Glucose 73, Total Calcium 7.6 L, RBC 3.12 L, MCV 92.3, MCHC 31.3 L, RDW 17.9 H, MPV 9.8,Nucleated RBCs 0.7:Whole Bld Glucose 305 H11 1613:Whole Bld Glucose [...] to continue monitoring kidney function.I will consult chain carrier to assess worsening kidney functionContinue with Butler [...] TimeSigrid Hodge MD Verified/Reviewed by 07/19/18 1424 [facility] PROG.ORTHOon 07-19-2018 Protein mass [facility] Protein mass [facility] Patient Name: VALENTE QUINONES [employer] [address] Date of : [address] [address] Unit Number: [id number] Number: [id number] Note-Ortho Patient Status: ADM INAttending Doctor: Jensen Peguero DOService Date: 07/19/18 0517Progress Note - OrthoSubjectiveS: (2 ROS minimum)Patient seen and examined. Continues to complain of urinary retention. States that hiship is doing well with only minimal pain. Has been up ambulating without difficulty.ObjectiveNursin g VitalsVital Signs (Last)ResultDate TimePulse Ou6196/ 0330B/P135/6711/ 4604Bzqn84.111/ 2519Txgiy1049/ 9121Kgdw5838 0330O2 DeliveryNASAL BFROXHW62/22 0440O2 Flow Liho252/22 0440Physical ExamGeneral: [Alert and oriented x3, no [...] L, RDW 17.9 H, MPV 9.8, NucleatedRBCs 0.211 2037:Whole Bld Glucose 305 H109/17/17 1613:Whole Bld Glucose 296 H109/17/17 1054:Whole Bld Glucose 293 H109/17/17 0832:Troponin I 0.2188707/18/18 0832:[Embedded Image Not Available]Anion Gap 10, Est GFR ( Amer) 30, Est GFR (Non-Af Amer) 25, BUN/Creatinine Ratio 21, Glucose 259 H, Total Calcium 7.9 L, Iron 58 L, TIBC 330, Iron Saturation 18 L, Wczipoih267.7, RBC 3.64 L, MCV 92.6, MCHC 32.0, RDW 18.1 H, MPV 9.5, Nucleated RBCs 0.111 0716:Whole Bld Glucose 212 HAssessment/PlanConclusion 1. ArthritisChronicPostoperat [...] minor grammatical errors may exist.eSign Date and Rigoberto Colon DO Verified/Reviewed by 07/19/18 0521Chacorta Carlton DO Normal [facility] TROPONIN Ion 07-19-2018 Troponin I.cardiac mass conc 0.023 ng/mL Normal 0.000-0.045 [facility] Comment on above: Order Comment: Campu s: M Performed By: #### L 500.31184, L500.32290, L500.66118, L500.75218 ####[facility] QGXYQCXFFG1819 [place], [place] [address]Lv# [phone] UA COMPLETEon 07-19-2018 Color Nom (U) Yellow Normal [facility] Comment on above: Order Comment: Campu s: M Performed By: #### L 500.07295, L500.61090, L500.85084, L500.60704 ####[facility] [id number] [place], [place] [address]Sd# [phone] Glucose mass conc (U) Negative Normal [facility] Comment on above: Order Comment: Campu s: M Performed By: #### L 500.20005, L500.12138, L500.73808, L500.22734 ####[facility] OKAQXGMTHA9091 [place], [place] [address]Kx# [phone] UA APPEARANCE Hazy Normal CLEAR [facility] Comment on above: Order Comment: Campu s: M Performed By: #### L 500.25536, L500.68829, L500.80391, L500.26469 ####[facility] [id number] [place] [address]Am# [phone] UA BILIRUBIN Negative Normal [facility] Comment on above: Order Comment: Campu s: M Performed By: #### L 500.81409, L500.01224, L500.32841, L500.22939 ####[facility] [id number] [place] [address]Iv# [phone] UA BLOOD SMALL Normal NEGATIVE [facility] Comment on above: Order Comment: Campu s: M Performed By: #### L 500.41665, L500.98098, L500.85862, L500.16088 ####[facility] [id number] [place] [address]Ud# [phone] UA KETONE Negative Normal [facility] Comment on above: Order Comment: Campu s: M Performed By: #### L 500.24748, L500.63003, L500.73395, L500.82459 ####[facility] [id number] [place] [address]Bi# [phone] UA LK ESTERASE 75 Normal NEGATIVE [facility] Comment on above: Order Comment: Campu s: M Performed By: #### L 500.27556, L500.78256, L500.50803, L500.89681 ####[facility] [id number] [place] [address]Wo# [phone] UA NITRITE Negative Normal NEGATIVE [facility] Comment on above: Order Comment: Campu s: M Performed By: #### L 500.34877, L500.52642, L500.54786, L500.88880 ####[facility] [id number] [place] [address] 11779Kn# [phone] UA PH 5.0 Normal [facility] Comment on above: Order Comment: Campu s: M Performed By: #### L 500.13425, L500.34985, L500.43821, L500.05830 ####[facility] [id number] [place] [address] 61239Kv# [phone] UA PROTEIN 30 Normal NEGATIVE [facility] Comment on above: Order Comment: Campu s: M Performed By: #### L 500.87481, L500.23329, L500.26408, L500.26926 ####[facility] [id number] [place] [address] 14593Za# [phone] UA SPEC GRAV 1.009 Normal 1.005-1.030 [facility] Comment on above: Order Comment: Campu s: M Performed By: #### L 500.12262, L500.87637, L500.80572, L500.74078 ####[place] [id number]# [phone] UA UROBILINOGEN Negative Normal [facility] Comment on above: Order Comment: Campu s: M Performed By: #### L 500.32021, L500.71041, L500.96718, L500.74117 ####[facility] [id number] [place] [address] 53280Qg# [phone] UA WBC 2 WBC/HPF Normal 0-5 [facility] Comment on above: Order Comment: Campu s: M Performed By: #### L 500.89584, L500.92552, L500.90146, L500.82564 ####[facility] [id number] [place] [address] 57549Fm# [phone] HYALINE CAST 1 /LPF Normal 0-1 [facility] Comment on above: Order Comment: Campu s: M Performed By: #### L 500.00644, L500.63679, L500.24808, L500.36594 ####[facility] [id number] [place] [address] 87468Kg# [phone] MUCUS TRACE Normal [facility] Comment on above: Order Comment: Campu s: M Performed By: #### L 500.01212, L500.20687, L500.75357, L500.06613 ####[facility] SBMYBMUOWY7617 [place], [place] [address]Lw# [phone] SQUAMOUS EPIS 0 EPI/HPF Normal 0-5 [facility] Comment on above: Order Comment: Campu s: M Performed By: #### L 500.93267, L500.67432, L500.97985, L500.51395 ####[facility] [id number] [place] [address] 05248Vu# [phone] UA BACTERIA TRACE Normal NONE [facility] Comment on above: Order Comment: Campu s: M Performed By: #### L 500.76569, L500.68846, L500.23897, L500.55615 ####[facility] [id number] [place] [address] 40978Jr# [phone] UA RBC 8 RBC/HPF High 0-3 [facility] Comment on above: Order Comment: Campu s: M Performed By: #### L 500.37811, L500.89180, L500.80910, L500.47024 ####[facility] [id number] [place] [address] 740[address]Mj# [phone] UR LYTESon 07-19-2018 UR CL RANDOM LESS THAN 15 [facility] Comment on above: Order Comment: Campu s: M Performed By: #### L 500.49357, L500.14469, L500.44954, L500.87315 ####[facility] [id number] [place] [address] 14481En# [phone] UR K RANDOM 32.8 MMOL/L Normal [facility] Comment on above: Order Comment: Campu s: M Performed By: #### L 500.79979, L500.48719, L500.55719, L500.54969 ####[facility] [id number] [place] [address] 22748Jy# [phone] UR NA RANDOM 22 MMOL/L Normal [facility] Comment on above: Order Comment: Campu s: M Performed By: #### L 500.30828, L500.04281, L500.76292, L500.44407 ####[facility] AKPPDIAPNE5203 [place], [place] [address]Sv# [phone] BMPon 07-18-2018 Anion gap 3 molar conc 10 mmol/L Normal 5-16 [facility] Comment on above: Order Comment: Campu s: M Performed By: #### L 500.20219, L500.86980, L500.57169, L500.07432 ####[facility] GXQYUTWGAG[address] [place] [address]Ph# [phone] Calcium mass conc 7.9 mg/dL Low 8.5-10.1 [facility] Comment on above: Order Comment: Campu s: M Performed By: #### L 500.60384, L500.57393, L500.84792, L500.07924 ####[facility] [id number] [place], [place] [address]Au# [phone] Chloride molar conc 93 mmol/L Low 98-107 [facility] Comment on above: Order Comment: Campu s: M Performed By: #### L 500.80389, L500.43206, L500.30556, L500.11779 ####[facility] RADENYKAQI7059 [place], [place] [address]Cm# [phone] CO2 molar conc 28 mmol/L Normal 21-32 [facility] Comment on above: Order Comment: Campu s: M Performed By: #### L 500.41935, L500.30812, L500.58291, L500.16023 ####[facility] LPFJGTDCQB4678 [place], [place] [address]Cm# [phone] Creatinine mass conc 2.650 mg/dL High 0.670-1.170 [facility] Comment on above: Order Comment: Campu s: M Result Comment: Macrina ents receiving either N-Acetylcysteine (NAC) orMetamizole prior to venipuncture, may have falsely depressedresults. Performed By: #### L 500.16942, L500.97659, L500.88059, L500.09780 ####[facility] FHFLKHMCCH8853 [place], [place] [address]Ot# [phone] Glucose mass conc 259 mg/dL High 70-100 [facility] Comment on above: Order Comment: Campu s: M Result Comment: 70-1 00- Normal Fasting; 100-125 Impaired Fasting; greaterthan 126 on more than one result- Diabetes. ADA guidelines.Results may be falsely elevated after the administration ofSulfapyridine.Results may be falsely depressed after the administration ofSulfasalazine. Performed By: #### L 500.19601, L500.63819, L500.37658, L500.77434 ####[facility] HCHLAUQSLY[address] [place] [address]Ph# [phone] Potassium molar conc 5.1 mmol/L Normal 3.5-5.1 [facility] Comment on above: Order Comment: Campu s: M Performed By: #### L 500.84919, L500.24141, L500.10579, L500.67890 ####[facility] OUFFQYGHFS9238 [place], [place] [address]Oj# [phone] Sodium molar conc 131 mmol/L Low 136-145 [facility] Comment on above: Order Comment: Campu s: M Performed By: #### L 500.92953, L500.06063, L500.50952, L500.02338 ####[facility] CCPSSVQDRW8539 [place], [place] [address]Fv# [phone] Urea nitrogen mass conc 56 mg/dL High 7-26 [facility] Comment on above: Order Comment: Campu s: M Performed By: #### L 500.32021, L500.33798, L500.68966, L500.05723 ####[facility] LFFRBDBVYA6974 [place], [place] [address]Xe# [phone] Urea nitrogen/Creatinine mass ratio 21 mg/mg Normal 15-24 [facility] Comment on above: Order Comment: Campu s: M Performed By: #### L 500.51214, L500.26724, L500.45973, L500.96923 ####[facility] ZACJISKAWR8213 [place], [place] [address]Sg# [phone] CBCon 07-18-2018 Erythrocyte distribution width Auto Ratio (RBC) 18.1 % High 11-14.5 [facility] Comment on above: Order Comment: Campu s: M Performed By: #### L 500.26120, L500.90015, L500.29958, L500.57195 ####[facility] GNGRUBEVPQ9565 [place], [place] [address]Li# [phone] Hematocrit Auto Volume Fraction (Bld) 33.7 % Low 41.0-53.0 [facility] Comment on above: Order Comment: Campu s: M Performed By: #### L 500.78746, L500.46597, L500.21874, L500.66546 ####[facility] SFESYTKDJC7560 [place], [place] [address]Ze# [phone] Hemoglobin mass conc (Bld) 10.8 g/dL Low 13.5-17.5 [facility] Comment on above: Order Comment: Campu s: M Performed By: #### L 500.45622, L500.49146, L500.19695, L500.13663 ####[facility] KFSOGSXCSV9872 [place], [place] [address]Yu# [phone] MCHC Auto mass conc (RBC) 32.0 g/dL Normal 32.0-36.0 [facility] Comment on above: Order Comment: Campu s: M Performed By: #### L 500.00977, L500.47954, L500.22870, L500.56787 ####[facility] JHAMKIVWXQ4770 [place], [place] [address]Kq# [phone] MCV Auto Entitic volume (RBC) 92.6 fL Normal 80.0-99.0 [facility] Comment on above: Order Comment: Campu s: M Performed By: #### L 500.55019, L500.78479, L500.83678, L500.76238 ####[facility] HJUSKAMLDM4021 [place], [place] [address]Lj# [phone] Nucleated RBC/100 WBC Ratio (Bld) 0.1 % Normal Less than 1 [facility] Comment on above: Order Comment: Campu s: M Performed By: #### L 500.75406, L500.78973, L500.02924, L500.93076 ####[facility] EMNKQKLQHZ[address] [place], [place] [address]Ph# [phone] Platelet mean volume Auto Entitic volume (Bld) 9.5 fL Normal 9.4-12.4 [facility] Comment on above: Order Comment: Campu s: M Performed By: #### L 500.13371, L500.19116, L500.99059, L500.12637 ####[facility] HLHGZAAY[address] [place] [address]Uq# [phone] Platelets Auto #/vol (Bld) 210 K/CU MM Normal 150-450 [facility] Comment on above: Order Comment: Campu s: M Performed By: #### L 500.15139, L500.69351, L500.12352, L500.86444 ####[facility] DUXLHZCKDY[address] [place] [address]Oj# [phone] RBC Auto #/vol (Bld) 3.64 M/CU MM Low 4.50-6.00 [facility] Comment on above: Order Comment: Campu s: M Performed By: #### L 500.00598, L500.94557, L500.79874, L500.73469 ####[facility] MZWARWPIEX[address] [place] [address]Rs# [phone] WBC Auto #/vol (Bld) 13.5 K/CU MM High 4.5-11.0 Me [facility] Comment on above: Order Comment: Jorgeu s: M Performed By: #### L 500.37372, L500.46533, L500.73187, L500.64066 ####[facility] KJUEPKJCQF7430 [place], [place] [address]Gt# [phone] Tom 07-18-2018 FERR 344.7 NG/ML Normal 24.0-388.0 [facility] Comment on above: Order Comment: Campu s: M Performed By: #### L 500.30242, L500.43247, L500.83516, L500.94903 ####[facility] EQAYZHYEML3382 [place], [place] [address]Eu# [phone] GFR ESTon 07-18-2018 IF AMER 30 ML/MIN [facility] Comment on above: Order Comment: Jorgeu s: M Performed By: #### L 500.92820, L500.16415, L500.55997, L500.57083 ####[facility] HSLHMBAWNG0243 [place], [place] [address]Xa# [phone] IF non-AFR AMER 25 ML/MIN [facility] Comment on above: Order Comment: Jorgeu s: M Performed By: #### L 500.32869, L500.67042, L500.01271, L500.35051 ####[facility] BQDIWQWMNC3941 [place], [place] [address]Xw# [phone] GLUCOSE METERon 07-18-2018 Glucose mass conc 305 mg/dL High 85-125 [facility] Glucose mass conc 296 mg/dL High 85-125 [facility] Glucose mass conc 293 mg/dL High 85-125 [facility] Glucose mass conc 212 mg/dL High 85-125 [facility] Glucose mass conc 245 mg/dL High 85-125 [facility] IRON PANELon 07-18-2018 Iron mass conc 58 ug/dL Low 65-175 [facility] Comment on above: Order Comment: Campu s: M Result Comment: Macrina ents treated with metal-binding drugs (e.g.deferoxamine)may have depressed iron values, as chelated iron may notproperly react in the Siemens iron assay. Performed By: #### L 500.14179, L500.89522, L500.67505, L500.53994 ####[facility] OHMKEVDHYV7924 [place], [place] [address]Am# [phone] IRON SAT 18 % Low 30-44 [facility] Comment on above: Order Comment: Jorgeu s: M Performed By: #### L 500.18853, L500.00837, L500.30827, L500.33521 ####[facility] ZNIPEFAXCR8917 [place], [place] [address]Nj# [phone] TIBC 330 UG/DL Normal 221-481 [facility] Comment on above: Order Comment: Jorgeu s: M Performed By: #### L 500.69028, L500.96227, L500.21060, L500.03753 ####[facility] ECPOHVWSFZ7386 [place], [place] [address]Gt# [phone] OTARon 07-18-2018 OT Assessment Report Normal [facility] OTAR Occupational TherapyInpatient EvaluationMedical Diagnosis: [...] with an EF of 45%who presents to [facility] July 17 for a removal of hardware and right total hiparthroplasty by Dr. Peguero. Patient states he has been having trouble with hishead for a year tried physical therapy, injections, and thql-ckz-xunptmg painmedication with no relief. He has been [...] Lateral hip precautionsImaging/Testing Results from Chart: N/A [facility] PATIENT NAME: VALENTE QUINONES [facility] Dr. Bartlett MEDICAL REC #: [id number], [place] [address] DATE: 07/17/18ERVICE DATE: 07/18/18Occupational Therapy Assessment ATTENDING [...] does not plan to use at home [facility] PATIENT NAME: MAURI QUINONES13[address] [facility] Dr. Bartlett MEDICAL REC #: [id number], [place] [address] DATE: 07/17/18ERVICE DATE: 07/18/18Occupational Therapy Assessment ATTENDING MARIE: Jensen Peguero Daily Activities:Putting On/Taking Off Lower Body Clothing: [...] limits.Psychosocial: Within normal limitsInterventions: Evaluation LOW Complexity [facility] PATIENT NAME: VALENTE QUINONES [facility] Dr. Bartlett [facility] REC #: [id number], [place] [address] DATE: 07/17/18ERVICE DATE: 07/18/18Occupational Therapy Assessment ATTENDING MARIE: Jensen Peguero Care/Home Management: UB and LB [...] Patient participated in plan of care developmenttoday. [facility] PATIENT NAME: VALENTE QUINONES [facility] Dr. Bartlett MEDICAL REC #: [id number], [place] [address] DATE: 07/17/18ERVICE DATE: 07/18/18Occupational Therapy Assessment ATTENDING PHY: Jensen Peguero there are any questions regarding this service, please contact the AcuteTherapy Department at extension [phone] WILL BE TRANSFERRED TO THE (CHOICE OF ACUTE OR REHAB) OCCUPATIONALTHERAPISTComm unication to Nursing: No updates at this time.Location of Patient at End of Therapy Session: In chair, call light within reachServices:Total Billed: 15 minutes (Timed: 15, Untimed: 0)15.00 Timed: [00244] ADL-HOME MANAGEMENT EA 15 MIN0.00 Untimed: [34385] OT-EVALUATION LOW COMPLEXITY0.00 Untimed: [] OT Evaluation ORDERSigned by: Nimco Unger, 07/18/2018 13:36:05 [facility] PATIENT NAME: VALENTE QUINONES [facility] Dr. Bartlett MEDICAL REC #: [id number], [place] [address] DATE: 07/17/18ERVICE DATE: 07/18/18Occupational Therapy Assessment ATTENDING PHY: Jensen Peguero DO [facility] 07-18-2018 Protein mass [facility] Protein mass [facility] Patient Name: VALENTE QUINONES [facility] Date of : [address] [address] Unit Number: [id number] Number: [id number] Note-Hospitalist Patient Status: ADM INAttending Doctor: Jensen [...] urinary retention.Objective (ROS)Nursing VitalsVital Signs (Last)ResultDate TimePulse Oh3018 1140B/P134/6111/ 0280Ujos23.811 4922Ljyhz4891/22 8458Vdnm0776/22 1140O2 DeliveryNASAL RGXSMCP67/22 0440O2 Flow Fuvs767/22 0440General AppearanceComfortablePhysi sabrina ExamNeurological / Psychiatric Alert, Orientation H1BDADL EOMI, PERRLNeck No JVD, No Enlarged ThyroidRespiratory Normal Breathing Effort, Clear LungsCardiovascular Heart RRR, No M / R / GGastrointestinal Normal Bowel Sounds, Non TenderMusculoskeletal No EdemaSkin No Rash, Warm / DryDiagnostic Data:Medications CurrentSig/SchStart timeLastMedicationDoseRout eStop TimeStatusAdminAl Hydrox/Mg Hydrox/30 OCB8IDAB PRN109/16 1100ACSimethiconePO(MAALOX (ALAMAG)PLUSORAL LIQ)Pcvgutg806 NHLWJELS71/22 7151LS75/22(ECOTRIN TAB.EC)IC4929Ffaixfcfwzmog ne HCl25 FEQ6RKYN PRN109/16 1100AC(BENADRYL CAP)PODocusate Wvfgqvg907 MGQ12H@21109/16 2099AC109/17(SURFAK CAP)OH2182Iqclwdvcn Mesylate2 MGBID109/16 2099AC109/17(CARDURA TAB)LI1923Dlshziowne Wcpjif72 IPW94Z80/22 0823MF27/22(LOVENOX D.SYR)RL0558Mlhirwmiyt285 MGQHS07/17 2200AC(NEURONTIN CAP)POHydromorphone HCl2 AZN8VSND PRN109/16 1100AC(DILAUDID D.SYR)IMInsulin Dcqksxia92 FNGJDTMK77/22 2200AC(LANTUS SOLOSTAR PEN)SCInsulin Human LisproSee YrrxFZSJ67/21 0057FV75/22(humaLOG/novoLO G PEN)Insts (1)RS8729Pezgukqh Ringer's1,000 CRZZBK32/21 8492QO07/21(Lactated Ringers)IV07/19 87011669Apayddcmqbm2 CXCQNH00/21 2200AC(XALATAN 0.005% OPTHOUDROP)Oxycodone/1 GEYVEV4EWUP PRN109/16 1100ACAcetaminophenPO(perc oCET-5/325 TAB)Oxycodone/2 NLFVLA1QTAT PRN109/16 5697AS35/22AcetaminophenPO 0850(percoCET-5/325 TAB)Pantoprazole Liccff59 GLQTIBPI32/22 1320DZ22/22(PROTONIX TAB)CD9625Gndqyrqsbdu Qvbdhm43 MGQHS07/17 2200AC(PRAVACHOL TAB)POSodium Chloride1,000 MLONCE ONE07/18 7401SA13/22(Sodium HrmmpoubLB00/23 655872420.9%)Sodium Chloride3 MWQ1R82/21 1400AC(Sodium ChlorideIV0.9% FLUSH D.SYR)Sodium Chloride3 MLPRN PRN109/16 1100AC(Sodium ChlorideIV0.9% FLUSH D.SYR)Trimethobenzamide RKs253 NAL1XCSB PRN109/16 1100AC(TIGAN VIAL)IMZolpidem Tartrate5 MGQHSPRN PRN109/16 1100AC(AMBIEN TAB)PODose Instructions:(1)Insulin Human Lispro (humaLOG/novoLOG PEN):2-10 UnitsLab 24hr (CBC/BMP Fishbone)07/18/18 1054:Whole Bld Glucose 293 H109/17/17 0832:Troponin I 0.1260707/18/18 0832:[Embedded Image Not Available]Anion Gap 10, Est GFR ( Amer) 30, Est GFR (Non-Af Amer) 25, BUN/Creatinine Ratio 21, Glucose 259 H, Total Calcium 7.9 L, Iron 58 L, TIBC 330, Iron Saturation 18 L, Osmnhuwm306.7, RBC 3.64 L, MCV 92.6, MCHC 32.0, RDW 18.1 H, MPV 9.5, Nucleated RBCs 0. 0716:Whole Bld Glucose 212 H109/16/17 2158:Whole Bld Glucose 245 HAssessment and PlanConclusion1. [...] Date and Sigrid Lynch MD Verified/Reviewed by 07/18/18 1427 [facility] PROG.ORTHOon 07-18-2018 Protein mass [facility] Protein mass [facility] Patient Name: VALENTE QUINONES [employer] Date of : [address] [address] Unit Number: [id number] Number: [id number] Note-Ortho Patient Status: ADM INAttending Doctor: Jensen [...] Tolerating diet wellObjectiveNursing VitalsVital Signs (Last)ResultDate TimePulse Yc1436/22 0015O2 DeliveryNASAL CZPDBTL11/22 0015O2 Flow Nkoc293/22 0015B/P135/7011/ 9565Njau70.611 1454Ysjkd4403/22 9370Yzyg6083/22 0010Physical ExamGeneral: Alert and oriented x3, no acute distressLE: SILT L2-S15/5 strength with DF/PF/EHL2+ distal pulses- calf tendernessDressing clean, dry, intactDiagnostic DataLab 24hr (CBC/BMP Fishbone)07/17/18 2158:Whole Bld Glucose 245 H109/16/17 1323:Whole Bld Glucose 134 H109/16/17 0800:Whole Bld Glucose 42685/ 0721:[Embedded Image Not Available]Assessment/PlanC onclusion1. ArthritisChronicPostop day [...] Date and TimeDRigoberto sewell DO Verified/Reviewed by 07/18/18 0616Mac Shipman DO Normal [facility] Shea 07-18-2018 PT Assessment Report Normal [facility] PTAR Physical TherapyInpa tient EvaluationMedical Diagnosis: R [...] with an EF of 45%who presents to [facility] July 17 for a removal of hardware and right total hiparthroplasty by Dr. Peguero. Patient states he has been having trouble with hishead for a year tried physical therapy, injections, and ueqd-jtu-zbsfqqo painmedication with no relief. He has been [...] medical management.Date of Admission: 07/17/2018 6:00:00 AMRehabilitation Precautions/Restrictions:Chucky AVERYE (lateral hip precautions, Sudhir)Imaging/Testing Results from Chart: N/ASUBJECTIVEPrior Level of Functioning:Indoor Mobility: Patient completed the activities by him/herself, with or [facility] PATIENT NAME: VALENTE QUINONES [facility] Dr. Bartlett MEDICAL REC #: [id number], [place] [address] DATE: 07/17/18ERVICE DATE: 07/18/18Physical Therapy Assessment Report ATTENDING PHY: Jensen Peguero an assistive device, with no assistance from a helper.Stairs: Patient completed the activities by him/herself, with or without anassistive device, with no assistance from a helper.Independent with mobility and ADLsPrior Device Use:MmuwfetrvlqCV495. Prior DeviceWalker YesPatient/Caregiver Goals: Patient's functional goals: [...] abduction not assessed, knee 4/5, ankle 5/5 [facility] PATIENT NAME: VALENTE QUINONES [facility] Dr. Bartlett MEDICAL REC #: [id number], [place] [address] DATE: 07/17/18ERVICE DATE: 07/18/18Physical Therapy Assessment Report [...] issues and interventions. Fall protocol. Functional transfers. [facility] PATIENT NAME: VALENTE QUINONES Dr. Bartlett MEDICAL REC #: [id number], [place] [address] DATE: 07/17/18ERVICE DATE: 07/18/18Physical Therapy Assessment Report [...] Goals:Functional Impairment: Changing and Maintaining Body PositionModifier: N9357-YM (at least 20%, but less than 40% impaired, limited, orrestricted)Goal: cGoal Modifier: F5747-IS (at least 20%, but less than 40% impaired, limited, orrestricted)Discharge Status for Changing and Maintaining Body Position: ResolvedFunctional Impairment Discharge Modifier: M6549-NP (at least 20%, but less than40% impaired, [...] please contact the AcuteTherapy Department at extension [phone] to Nursing:Walking: +1 and WW [facility] PATIENT NAME: VALENTE QUINONES Jason Bartlett MEDICAL REC #: [id number], [place] [address] DATE: 07/17/18ERVICE DATE: 07/18/18Physical Therapy Assessment Report ATTENDING PHY: Jensen Peguero DOLocation of Patient at End of Therapy Session: In chair, call light within reachServices:Total Billed: 0 minutes (Timed: 0, Untimed: 0)0.00 Untimed: [86022] PT-EVALUATION LOW COMPLEXITY0.00 Untimed: [] PT Evaluation ORDER0.00 Untimed: [G8981] PT-Changing and Maintaining Body Position-CJ0.00 Untimed: [G8982] ML-Byco-Sepwusfs and Maintaining Body Position-CJ0.00 Untimed: [G8983] AO-DT-Qyavoyxn and Maintaining Body Position-CJSigned by: cSott Israel, 07/18/2018 09:29:20 [facility] PATIENT NAME: VALENTE QUINONES Jason Bartlett MEDICAL REC #: [id number], [place] [address] DATE: 07/17/18ERVICE DATE: 07/18/18Physical Therapy Assessment Report ATTENDING PHY: Jensen Peguero DO Normal [facility] TROPONIN Ion 07-18-2018 Troponin I.cardiac mass conc 0.023 ng/mL Normal 0.000-0.045 [facility] Comment on above: Order Comment: Kahlil steel: Aditya Performed By: #### L 500.43989, L500.69336, L500.89451, L500.67629 ####[facility] MZQSYLIJHN9241 [place], [place] [address]Zf# [phone] [facility] 07-17-2018 CR DATE OF CONSULTATION : 07/20/2018REASON [...] Coreg.3. Celecoxib.4. Cardura.5. Lasix.6. Neurontin.7. Insulin.8. Lisinopril. [facility] PATIENT NAME: VALENTE QUINONES [facility] Dr. Bartlett MEDICAL REC #: [id number], [place] [address] DATE: 07/17/18DISCHARGE DATE:CONSULTATION REPORT ATTENDING PHY: Jensen Peguero DO9. Metolazone.10. Pravastatin.11. Tramadol.CURRENT MEDICATIONS: Include:1. Hydrocodone.2. Insulin.3. Lovenox.4. Aspirin.5. Protonix.6. Neurontin.7. Pravastatin.8. Cardura.LABORATORY DATA PERTINENT FROM THIS MORNING: Sodium 128, potassium 5.4, chloride 92,CO2 28, BUN 64, creatinine 3.3. total white count 7000, hemoglobin 9.4, sjdeeuqopv94. Urinalysis notes trace protein, small blood, negative nitrites, sodium 22, urinechloride less than 15. Renal ultrasound unremarkable.PHYSICAL EXAMINATION:Vital signs: Temperature 99.9, heart rate 67, blood pressure 125/70. Urine inujji969 mL overnight.HEENT: Unremarkable.Lungs: Slightly decreased at bases.Cardiovascular: [...] hypotension. Dose all medications appropriately fordecreased GFR. [facility] PATIENT NAME: VALENTE QUINONES Jason Bartlett [facility] REC #: [id number], [place] [address] DATE: 07/17/18DISCHARGE DATE:CONSULTATION REPORT ATTENDING PHY: Jensen Peguero. Intakes and outputs and daily lab.I thank you for giving me the opportunity to participate in the care of the patient. Jameson Sullivan, DYLAN/[id number]: 07/20/2018 10:35DT: 07/20/2018 11:07SSI File#: [id number] #: [id number]/Reviewed by07/22/18 1539 [facility] PATIENT NAME: VALENTE QUINONES Jason Bartlett MEDICAL REC #: [id number], [place] [address] DATE: 07/17/18DISCHAR DATE:CONSULTATION REPORT ATTENDING PHY: Jensen Peguero DO Normal [facility] DATE OF CONSULTATION : 07/21/2018REASON FOR CONSULTATION: [...] incision for which she was taken back tot OR this morning. Labs this morning noted [...] with atelectasis; small bilateral pleural effusions.PHYSICAL EXAMINATION: [facility] PATIENT NAME: VALENTE QUINONES [facility] Dr. Bartlett MEDICAL REC #: [id number], [place] [address] DATE: 07/17/18DISCHARGE DATE:CONSULTATION REPORT ATTENDING PHY: Jensen Peguero DOVital Signs: Temperature 97.8, heart [...] in the care of the patient. DYLAN Carbone/[id number]: 07/21/2018 09:43DT: 07/21/2018 11:19SSI File#: [id number] #: [id number] - This document may contain phonetic, minor grammatical errors, or errorsdue to voice quality.Verified/Reviewed by [facility] PATIENT NAME: VALENTE QUINONES [facility] Dr[address] Bartlett MEDICAL REC #: [id number] [address] DATE: 07/17/18DISCHARGE DATE:CONSULTATION REPORT ATTENDING PHY: Jensen Peguero DO07/22/18 1539 BHAPR [facility] PATIENT NAME: VALENTE QUINONES Jason Bartlett MEDICAL REC #: [id number], [place] [address] DATE: 07/17/18DISCHARGE DATE:CONSULTATION REPORT ATTENDING PHY: Jensen Peguero DO Normal [facility] GLUCOSE METERon 07-17-2018 Glucose mass conc 134 mg/dL High 85-125 [facility] Glucose mass conc 110 mg/dL Normal 85-125 [facility] HHon 07-17-2018 Hematocrit Auto Volume Fraction (Bld) 36.9 % Low 41.0-53.0 [facility] Comment on above: Order Comment: Kahlil s: M Performed By: #### L 300.64191, L300.47433 ####[facility] [id number] [place], [place] [address]Cj# [phone] Hemoglobin mass conc (Bld) 11.7 g/dL Low 13.5-17.5 [facility] Comment on above: Order Comment: Kahlil s: M Performed By: #### L 300.12135, L300.15575 ####[facility] HRCLZVPHBH1868 [place], [place] [address]Lv# [phone] HP.IMS.CONon 07-17-2018 CONSULTATION-H&P Normal [facility] HP.IMS.[facility] Patient Name: MAURI QUINONES[address] [facility] [place] [address] Date [place] : [address] [address] Unit Number: [id number] Number: [id number] Patient Status: REG SDCAttending Doctor: Jensen Peguero DOService Date: 07/17/18 1336History of Present IllnessReferring Jensen Holguin DOConsulted ProviderYoTani gamino DOSource of Information Patient, Medical recordReason for ConsultMedical movementLiving Situation Home - IndependentHistory of Present IllnessPatient is a 62-year-old male patient of Dr. gould, past medical history CAD withthree-vessel coronary artery bypass graft, diabetes, hypertension, non-STEMI, congestiveheart failure with an EF of 45% who presents to [facility] July 17 for a removal ofhardware and right total hip arthroplasty by Dr. Peguero. Patient states he has beenhaving trouble with his head for a year tried physical therapy, injections, and pxpe-muw-anicyru pain medication with no relief. He has [...] on 02/05/18 0947Last Taken: 2 mg on 07/17/18529 Last Action: Last Taken Edited on 07/17/18 0750by LYDIA MAYNARDFurosemide * (Lasix 40MG Tab*) 40 MG TABLET 60 MG PO BIDAC, Ref 0 (Reported)Entered as Reported by PATTIE AUGUSTIN on 07/02/18 1502Last Taken: 60 MG on 07/17/18529 Last Action: Last Taken Edited on 750 by LYDIA MAYNARDGabapentin * (Neurontin Tab*) 600 MG TABLET 600 MG PO QHS, Ref 0 (Reported)Entered as Reported by PATTIE AUGUSTIN on 02/06/18 0935Last Action: Reviewed on 07/17/18750 by Guevara MAYNARD Detemir (Levemir Flextouch Pen) 100 UNIT/1 ML INSULN.PEN 17 UNITS SC QHS,Ref 0 (Reported)Entered as Reported by FLOYD VICENTE on 02/05/18 0948Last Action: Reviewed on 07/17/18750 by Avis MAYNARDtanopros t* (Xalatan 0.005% Eye Drop*) 2.5 ML DROPS 1 GTT OU QHS, Ref 0 (Reported)Entered as Reported by FLOYD VICENTE on 02/05/1848Last Action: Reviewed on 07/17/18750 by Kirby MAYNARDsinopril * (Zestril 20MG Tab*) 20 MG TABLET 20 MG PO QDAY, Ref 0 (Reported)Entered as Reported by PATTIE AUGUSTIN on 07/02/18 1459Last Action: Reviewed on 07/17/18750 by LYDIA MAYNARDMetolazone * (zaroXOLYN 2.5MG TAB*) 2.5 MG TABLET 5 MG PO SUN/, Ref 0 (Reported)Entered as Reported by FLOYD VICENTE on 02/05/18 0947Last Taken: 5 MG on 07/17/18 0530 Last Action: Last Taken Edited on 07/17/18 0751by López MAYNARD n Sod* (Pravachol 80MG Tab*) 80 MG TABLET 80 MG PO QHS, Ref 0 (Reported)Entered as Reported by FLOYD VICENTE on 02/05/18 0946Last Action: Reviewed on 07/17/18750 by Mariana MAYNARDdalafil (Cialis) 20 MG TABLET 20 MG PO PRN PRN ., Ref 0 (Reported)Entered as Reported by FLOYD VICENTE on 02/05/18 0949Last Action: Reviewed on 07/17/18750 by LYDIA MAYNARDTramadol HCl* (Ultram 50MG Tab*) 50 MG TABLET 50 MG PO TID,PRN PAIN, Ref 0 (Reported)Entered as Reported by PATTIE AUGUSTIN on 07/02/18 1501Last Action: Reviewed on 07/17/18 0751 by Cam MAYNARD MedicationsMedications CurrentSig/SchStart timeLastMedicationDoseRout eStop TimeStatusAdminAl Hydrox/Mg Hydrox/30 TIL9UIQH PRN109/16 1100ACSimethiconePO(MAALOX (ALAMAG)PLUSORAL LIQ)Bisacodyl5 MGONCE ONE07/18 1100AC(DULCOLAX TAB.EC)PO07/18 1101Cefazolin Sodium2 GMQ8H@0907/17 1700AC(ANCEF VIAL)IV07/18 0129Sodium Qouncvac44 ML(Sodium Chloride0.9%)Diphenhydrami ne HCl25 TDC9RTTA PRN109/16 1100AC(BENADRYL CAP)PODocusate Uceglsg132 MGQ12H@ 2100AC(SURFAK CAP)POEnoxaparin Ndaahb49 SFU13K97/22 0900AC(LOVENOX D.SYR)SCHydromorphone HCl2 FNB4QAQB PRN109/16 1100AC(DILAUDID D.SYR)IMLactated Ringer's1,000 MVNVCJ55/21 1100AC(Lactated Ringers)IV07/19 1059Oxycodone/1 HQLPXV8RIZI PRN109/16 1100ACAcetaminophenPO(perc oCET-5/325 TAB)Oxycodone/2 SXVZQO3WLRZ PRN109/16 1100ACAcetaminophenPO(perc oCET-5/325 TAB)Pantoprazole Zknvsl09 TJRPGQJI74/22 0700AC(PROTONIX TAB)POSodium Chloride3 MQA7F58/21 1400AC(Sodium ChlorideIV0.9% FLUSH D.SYR)Sodium Chloride3 MLPRN PRN109/16 1100AC(Sodium ChlorideIV0.9% FLUSH D.SYR)Trimethobenzamide YJa087 LZX7MSUJ PRN109/16 1100AC(TIGAN VIAL)IMZolpidem Tartrate5 MGQHSPRN PRN109/16 1100AC(AMBIEN [...] 134.Medications CurrentSig/SchStart timeLastMedicationDoseRout eStop TimeStatusAdminAl Hydrox/Mg Hydrox/30 IXY8HRFC PR 1100ACSimethiconePO(MAALOX (ALAMAG)PLUSORAL LIQ)Bisacodyl5 MGONCE ONE07/18 1100AC(DULCOLAX TAB.EC)PO07/18 1101Cefazolin Sodium2 GMQ8H@ 1700AC(ANCEF VIAL)IV07/18 0129Sodium Taaamfgb47 ML(Sodium Chloride0.9%)Diphenhydrami ne HCl25 FNX0VXYN PR 1100AC(BENADRYL CAP)PODocusate Rgfdgsr477 MGQ12H@ 2100AC(SURFAK CAP)POEnoxaparin Gnehnd83 QNL11I86/22 0900AC(LOVENOX D.SYR)SCHydromorphone HCl2 NRX8MYSK PR 1100AC(DILAUDID D.SYR)IMLactated Ringer's1,000 ZEBOZG51/21 1100AC(Lactated Ringers)IV11/ 1059Oxycodone/1 TGYEXL5OHHC PRN109/16 1100ACAcetaminophenPO(perc oCET-5/325 TAB)Oxycodone/2 YGCOHY0GKIH PRN109/16 1100ACAcetaminophenPO(perc oCET-5/325 TAB)Pantoprazole Cgpwjl18 NVHLAQOH84/22 0700AC(PROTONIX TAB)POSodium Chloride3 IRG3Z91/21 1400AC(Sodium ChlorideIV0.9% FLUSH D.SYR)Sodium Chloride3 MLPRN PRN109/16 1100AC(Sodium ChlorideIV0.9% FLUSH D.SYR)Trimethobenzamide BEs748 VZW5HNTP PRN109/16 1100AC(TIGAN VIAL)IMZolpidem Tartrate5 MGQHSPRN PRN109/16 1100AC(AMBIEN [...] minor grammatical errors may exist.eSign Date and TimeBillettDonna peterson CNP Verified/Reviewed by 07/17/18 Tani Luz DO [facility] 07-17-2018 OPERATIVE REPORT [facility] OR DATE OF SERVICE: 07/17/2018PREOPERATIVE DIAGNOSIS: [...] mm 0 degreepolyethylene liner, a size 16 [place] porous straight femoral component, 190 mm inlength with a +4 40 mm Oxinium femoral head.SURGEON: Jensen Peguero M.D.EVENT STAFF: Radha Fitch PA-C; Fernandez Rosario DO, orthopedic resident; Yaya Boone,orthopedic resident.ANESTHESIA: General with local for postoperative pain management.BLOOD LOSS: 200 mL.COMPLICATIONS: None.HISTORY: Harrison is a 63-year-old white male who [...] deformed and oval-shaped femoral head with large [facility] PATIENT NAME: VALENTE QUINONES [facility] Dr. Bartlett MEDICAL REC #: [id number], [place] [address] DATE: 07/17/18DISCHARGE DATE:OPERATIVE REPORT ATTENDING MARIE: Jensen Peguero DOosteophytes on the neck. We removed the proximal locking screw and then was able toremove the compression screw and then was able to remove the intramedullary nail. Dorene went ahead with the hip replacement utilizing straight stem Zacarias Ferrell,reaming, trialing, ended up going with a [...] the recovery room in stable condition. TEO Velasquez/[id number]: 07/17/2018 12:13DT: 07/17/2018 13:47SSI File#: [id number] #: [id number]/Reviewed by07/20/18 0817 LILY [facility] PATIENT NAME: [facility]ONES0 [facility] MEDICAL REC #: [id number], [place] [address] DATE: 07/17/18DISCHARGE DATE:OPERATIVE REPORT ATTENDING PHY: Jensen Peguero DO Normal [facility] 07-17-2018 PORTABLE CHEST PORTABLE CHESTOrderi ng Physician: Jameson Sullivan MD07/22/2018 7:00 AMPORTABLE UPRIGHT CHEST RADIOGRAPH AT 0510 HOURSClinical Statement: CHFComparison: 07/20/2018FINDINGS: The patient has undergone prior median sternotomy. Theheart is enlarged. Pulmonary vasculature is borderline congested.There is trace effusions. No focal consolidation. No pneumothorax.IMPRESSION:1. Cardiomegaly with borderline congestion.2. Trace bilateral effusions. ---- Electronic Signature on File ----Signed By: Chantell [email or web address]: 07/22/2018 7:14 AMSigned: 07/22/2018 7:15 AM Reported By: FLORINA GUERRERO M.D. Signed By: FLORINA GUERRERO M.D. [facility] PORTABLE CHEST PORTABLE CHESTOrderi ng Physician: [...] Electronic Signature on File ----Signed By: Chantell [email or web address]: 07/20/2018 10:59 AMSigned: 07/20/2018 11:00 AM Reported By: SANDRINE LANCASTER M.D. Signed By: SANDRINE LANCASTER M.D. [facility] TSon 07-17-2018 ABO and Rh group Nom (Bld) O NEGATIVE [facility] Comment on above: Order Comment: Kahlil s: M US KIDNEYon 07-17-2018 US KIDNEY US KIDNEYOrdering [...] on File ----Signed By: Nando Elizabeth [email or web address]: 07/19/2018 7:32 PMSigned: 07/19/2018 7:36 PM Reported By: NANDO ELIZABETH M.D. Signed By: NANDO ELIZABETH M.D. Normal [facility] URINE CULTUREon 07-06-2018 Bacteria identified Cx Nom (U) NO GROWTH AFTER 48 HOURS Normal [facility] Comment on above: Order Comment: Campu s: M Performed By: #### L 300.41061, L300.62213 ####[facility] [id number] [place], [place] [address]Hz# [phone] ABO/RH NCon 07-04-2018 ABO and Rh group Nom (Bld) O NEGATIVE Normal [facility] Comment on above: Order Comment: Campu s: M BMPon 07-04-2018 Anion gap 3 molar conc 7 mmol/L Normal 5-16 [facility] Comment on above: Order Comment: Campu s: M Performed By: #### L 300.42757, L300.46756 ####[facility] CEYUMCOMKK7241 [place], [place] [address]Ty# [phone] Calcium mass conc 8.5 mg/dL Normal 8.5-10.1 [facility] Comment on above: Order Comment: Campu s: M Performed By: #### L 300.36203, L300.70187 ####[facility] NBNZLHCJQE8708 [place], [place] [address]Gb# [phone] Chloride molar conc 100 mmol/L Normal 98-107 [facility] Comment on above: Order Comment: Campu s: M Performed By: #### L 300.60973, L300.80710 ####[facility] JHHJDXTRNC9941 [place], [place] [address]Xv# [phone] CO2 molar conc 32 mmol/L Normal 21-32 [facility] Comment on above: Order Comment: Campu s: M Performed By: #### L 300.09337, L3.93746 ####[facility] EXMELWXENO6989 [place], [place] [address]Kj# [phone] Creatinine mass conc 1.490 mg/dL High 0.670-1.170 [facility] Comment on above: Order Comment: Campu s: M Result Comment: Macrina ents receiving either N-Acetylcysteine (NAC) orMetamizole prior to venipuncture, may have falsely depressedresults. Performed By: #### L 300.79228, L300.19296 ####[facility] ELBOQUREOX7234 [place], [place] [address]Ny# [phone] Glucose mass conc 90 mg/dL Normal 70-100 [facility] Comment on above: Order Comment: Campu s: M Result Comment: 70-1 00- Normal Fasting; 100-125 Impaired Fasting; greaterthan 126 on more than one result- Diabetes. ADA guidelines.Results may be falsely elevated after the administration ofSulfapyridine.Results may be falsely depressed after the administration ofSulfasalazine. Performed By: #### L 300.59718, L3.18392 ####[facility] BVBOMOYYGH9376 [place], [place] [address]Om# [phone] Potassium molar conc 4.7 mmol/L Normal 3.5-5.1 [facility] Comment on above: Order Comment: Campu s: M Performed By: #### L 300.82981, L3.71140 ####[facility] GKEIBJZYJO3264 [place], [place] [address]Jg# [phone] Sodium molar conc 139 mmol/L Normal 136-145 [facility] Comment on above: Order Comment: Campu s: M Performed By: #### L 300.09271, L300.88781 ####[facility] BMDYUPARJS[address] [place] [address]Ry# [phone] Urea nitrogen mass conc 73 mg/dL High 7- [facility] Comment on above: Order Comment: Campu s: M Performed By: #### L 300.47488, L300.50626 ####[place] [address]Ph# [phone] Urea nitrogen/Creatinine mass ratio 49 mg/mg High 15- [facility] Comment on above: Order Comment: Campu s: M Performed By: #### L 300.04114, L300.15485 ####[place] [address]Ph# [phone] CBC W/DIFFon 07-04-2018 BASO ABS 0.00 K/CU MM Normal 0-0.2 [facility] Comment on above: Order Comment: Campu s: M Performed By: #### L 300.75965, L300.88719 ####[address] [address]Zz# [phone] Basophils/100 WBC Auto (Bld) 0.5 % Normal 0-2 [facility] Comment on above: Order Comment: Campu s: M Performed By: #### L 300.77005, L300.98611 ####[facility] [id number] [place] [address]Vz# [phone] EOS ABS 0.20 K/CU MM Normal 0-0.5 [facility] Comment on above: Order Comment: Campu s: M Performed By: #### L 300.58353, L300.09535 ####[facility] [id number] [place], [place] [address]Ph# [phone] Eosinophils/100 WBC Auto (Bld) 2.6 % Normal 0-5 [facility] Comment on above: Order Comment: Campu s: M Performed By: #### L 300.70483, L300.58629 ####[facility] EXEBWSPRIP7271 [place], [place] [address]Yn# [phone] Erythrocyte distribution width Auto Ratio (RBC) 14.1 % Normal 11-14.5 [facility] Comment on above: Order Comment: Campu s: M Performed By: #### L 300.76282, L300.24939 ####[place] [address]Ph# [phone] Hematocrit Auto Volume Fraction (Bld) 32.5 % Low 41.0-53.0 [facility] Comment on above: Order Comment: Campu s: M Performed By: #### L 300.06733, L300.74152 ####[place] [address]Ph# [phone] Hemoglobin mass conc (Bld) 10.5 g/dL Low 13.5-17.5 [facility] Comment on above: Order Comment: Campu s: M Performed By: #### L 300.45335, L300.45663 ####[place] [address] [place], [place] [address]Zm# [phone] IMMATR GRAN ABS 0.00 K/CU MM Normal Less than 2 [facility] Comment on above: Order Comment: Campu s: M Performed By: #### L 300.16988, L300.99328 ####[facility] [id number] [place], [place] [address]Ph# [phone] IMMATURE GRAN % 0.2 % Normal Less than 2 [facility] Comment on above: Order Comment: Campu s: M Performed By: #### L 300.05529, L300.76638 ####[facility] [id number] [place], [place] [address]Ph# [phone] Lymphocytes Auto #/vol (Bld) 0.70 K/CU MM Low 0.9-4.4 [facility] Comment on above: Order Comment: Campu s: M Performed By: #### L 300.22514, L300.64560 ####[facility] YUYKYBLAST8585 [place] [address]Ph# [phone] Lymphocytes/100 WBC Auto (Bld) 11.4 % Low 20-40 [facility] Comment on above: Order Comment: Campu s: M Performed By: #### L 300.54251, L300.90312 ####[place] [address]Ph# [phone] MCHC Auto mass conc (RBC) 32.3 g/dL Normal 32.0-36.0 [facility] Comment on above: Order Comment: Campu s: M Performed By: #### L 300.61657, L300.28358 ####[place] [address]Ph# [phone] MCV Auto Entitic volume (RBC) 89.5 fL Normal 80.0-99.0 [facility] Comment on above: Order Comment: Campu s: M Performed By: #### L 300.26419, L300.64124 ####[place] [address]Ph# [phone] MONO ABS 0.70 K/CU MM Normal 0.1-1.1 [facility] Comment on above: Order Comment: Campu s: M Performed By: #### L 300.98141, L300.28073 ####[facility] [id number] [place], [place] [address]Ph# [phone] Monocytes/100 WBC Auto (Bld) 10.9 % High 2-10 [facility] Comment on above: Order Comment: Campu s: M Performed By: #### L 300.70379, L300.76516 ####[facility] [address]ZV[address]JTJA[address] [place], [place] [address]Ph# [phone] NEUTROPHIL ABS 4.90 K/CU MM Normal 2.0-8.3 [facility] Comment on above: Order Comment: Campu s: M Performed By: #### L 300.24168, L300.28029 ####[facility] WWEWSXMKSX4852 [place], [place] [address]Ad# [phone] Neutrophils/100 WBC Auto (Bld) 74.4 % Normal 45-75 [facility] Comment on above: Order Comment: Campu s: M Performed By: #### L 300.65008, L300.26998 ####[facility] XMLFKQVJFB2902 [place], [place] [address]Ns# [phone] Nucleated RBC/100 WBC Ratio (Bld) 0.0 % Normal Less than 1 [facility] Comment on above: Order Comment: Campu s: M Performed By: #### L 300.97602, L300.04247 ####[facility] [id number] [place] [address]Ak# [phone] Platelet mean volume Auto Entitic volume (Bld) 9.7 fL Normal 9.4-12.4 [facility] Comment on above: Order Comment: Campu s: M Performed By: #### L 300.73727, L300.86419 ####[facility] NZCXSXFLCJ2797 [place], [place] [address]Uq# [phone] Platelets Auto #/vol (Bld) 226 K/CU MM Normal 150-450 [facility] Comment on above: Order Comment: Campu s: M Performed By: #### L 300.55544, L300.53752 ####[facility] [id number] [place] [address]Is# [phone] RBC Auto #/vol (Bld) 3.63 M/CU MM Low 4.50-6.00 [facility] Comment on above: Order Comment: Campu s: M Performed By: #### L 300.64870, L300.33242 ####[facility] [id number] [place] [address]Mg# [phone] WBC Auto #/vol (Bld) 6.5 K/CU MM Normal 4.5-11.0 [facility] Comment on above: Order Comment: Jorgeu s: M Performed By: #### L 300.87451, L300.12386 ####[facility] MJJRUKQJTV6249 [place], [place] [address]Rx# [phone] Tom 07-04-2018 FERR 183.0 NG/ML Normal 24.0-388.0 [facility] Comment on above: Order Comment: Jorgeu s: M Performed By: #### L 300.08149, L300.04068 ####[facility] [id number] [place] [address]Dh# [phone] GFR ESTon 07-04-2018 IF AMER 58 ML/MIN Normal [facility] Comment on above: Order Comment: Jorgeu s: M Performed By: #### L 300.74627, L300.33116 ####[facility] [id number] [place] [address]Wg# [phone] IF non-AFR AMER 48 ML/MIN Normal [facility] Comment on above: Order Comment: Jorgeu s: M Performed By: #### L 300.55434, L300.64493 ####[facility] PUMWPPORBF0860 [place], [place] [address]Ao# [phone] HGB A1C GLYCOHBon 07-04-2018 Hemoglobin A1c/Hemoglobin.total mass fraction (Bld) 8.4 % High 4.3-6.0 [facility] Comment on above: Order Comment: Jorgeu s: M Performed By: #### L 300.71619, L300.57293 ####[facility] [id number] [place] [address]Ao# [phone] IRON PANELon 07-04-2018 Iron mass conc 83 ug/dL Normal 65-175 [facility] Comment on above: Order Comment: Kahlil s: M Result Comment: Macrina ents treated with metal-binding drugs (e.g.deferoxamine)may have depressed iron values, as chelated iron may notproperly react in the Siemens iron assay. Performed By: #### L 300.50852, L300.68470 ####[facility] QWFLYEHMPN2747 [place], [place] [address]Fh# [phone] IRON SAT 23 % Low 30-44 [facility] Comment on above: Order Comment: Kahlil steel: M Performed By: #### L 300.57336, L300.39462 ####[facility] DDRIXXNMPV3707 [place], [place] [address]Gh# [phone] TIBC 364 UG/DL Normal 221-481 [facility] Comment on above: Order Comment: Kahlil steel: M Performed By: #### L 300.14847, L300.56712 ####[facility] [id number] [place], [place] [address]Ud# [phone] MRSA PCRon 07-04-2018 MRSA PCR Negative Normal NEGATIVE [facility] Comment on above: Order Comment: Kahlil s: M Result Comment: PLEA SE NOTE: TESTING DONE BY PCR TECHNOLOGY. Performed By: #### L 300.81389, L300.40314 ####[facility] HFLHCCMQNZ0851 [place], [place] [address]Ar# [phone] SA PCR Negative Normal NEGATIVE [facility] Comment on above: Order Comment: Kahlil steel: Aditya Result Comment: PLEA SE NOTE: TESTING DONE BY PCR TECHNOLOGY. Performed By: #### L 300.87269, L300.58203 ####[facility] SLKGAEYDVH1701 [place], [place] [address]Zy# [phone] PBNP TESTon 07-04-2018 Natriuretic peptide B mass conc (Bld) 12502 pg/mL High 0-900 [facility] Comment on above: Order Comment: Kahlil steel: Aditya Result Comment: NT-p roBNP results of less than 300 pg/ml effectively rulesout acute congestive heart failure with 99% negativepredictive value. Performed By: #### L 300.35600, L300.11924 ####[facility] FFNIJADYJE6621 [place], [place] [address]Ze# [phone] PTon 07-04-2018 INR Coag RelTime (PPP) 1.04 {INR} Normal 0.9-1.1 [facility] Comment on above: Order Comment: Kahlil Burgess Result Comment: Rhett mmended PT INR therapeutic range for fdc andprophylactic therapy is 2.0 - 3.0. For heart valve andshunt patients the range is 2.5 - 3.5. Performed By: #### L 300.99640, L300.15080 ####[facility] XSQBAPUYDN7573 [place], [place] [address]Tz# [phone] PTS 11.1 SECONDS Normal 9.5-12.0 [facility] Comment on above: Order Comment: Kahlil steel: Aditya Performed By: #### L 300.62210, L300.17771 ####[address] [address]Nq# [phone] PTTon 07-04-2018 aPTT Coag time (Bld) 25.7 s Normal 22.0-31.5 [facility] Comment on above: Order Comment: [...] using the PTT. Performed By: #### L 300.91134, L300.14499 ####[facility] YAACWEYHCP5930 [place], [place] [address]Tf# [phone] TROPONIN Ion 07-04-2018 Troponin I.cardiac mass conc 0.030 ng/mL Normal 0.000-0.045 [facility] Comment on above: Order Comment: Kahlil Burgess Performed By: #### L 300.11527, L300.38198 ####[facility] GNVKBPLZMM8570 [place], [place] [address]Jq# [phone] XR FINGER 3RD DIGIT 3 VIEWS RIGHTon [...] AM Sign Date: 05/20/2018 10:06:01 AM Normal [facility], [facility] ([place]) Tom 02-12-2018 FERR 87.5 NG/ML Normal 24.0-388.0 [facility] Comment on above: Order Comment: Kahlil steel: Aditya Performed By: #### L 300.11317, [id number] ####[facility] [id number] [place], [place] [address]Lx# [phone] IRON PANELon 02-12-2018 Iron mass conc 249 ug/dL High 65-175 [facility] Comment on above: Order Comment: Kahlil Burgess Result Comment: Macrina ents treated with metal-binding drugs (e.g.deferoxamine)may have depressed iron values, as chelated iron may notproperly react in the Siemens iron assay. Performed By: #### L 300.92908, L300.63571 ####[facility] [id number] [place], [place] [address]Qh# [phone] IRON SAT 74 % High 30-44 [facility] Comment on above: Order Comment: Kahlil Burgess Performed By: #### L 300.86644, L300.15622 ####[facility] [id number] [place], [place] [address]Zv# [phone] TIBC 336 UG/DL Normal 221-481 [facility] Comment on above: Order Comment: Kahlil Burgess Performed By: #### L 300.25565, L300.02325 ####[facility] [id number] [place], [place] [address]Fa# [phone] URINE CULTUREon 02-08-2018 Bacteria identified Cx Nom (U) ORGANISM 1: GAMMA HEMOLYTIC STREPTOCOCCUS COLONY COUNT >100,000 ID TO FOLLOW NOT VIABLE FOR SENSITIVITY Normal [facility] Comment on above: Order Comment: Campu s: M Performed By: #### L 300.06279, L300.87891 ####[facility] [id number] [place], [place] [address]Hg# [phone] ABO/RH NCon 02-06-2018 ABO and Rh group Nom (Bld) O NEGATIVE Normal [facility] Comment on above: Order Comment: Campu s: MIs This Patient Going To Surgery? YSurgery Date: 02/20/18 BMPon 02-06-2018 Anion gap 3 molar conc 9 mmol/L Normal 5-16 [facility] Comment on above: Order Comment: Campu s: M Performed By: #### L 500.34488, L500.91959, L500.15977, L500.79243 ####[facility] [id number] [place], [place] [address]Cd# [phone] Calcium mass conc 8.3 mg/dL Low 8.5-10.1 [facility] Comment on above: Order Comment: Campu s: M Performed By: #### L 500.19030, L500.85986, L500.37150, L500.03033 ####[facility] [id number] [place], [place] [address]Il# [phone] Chloride molar conc 102 mmol/L Normal 98-107 [facility] Comment on above: Order Comment: Campu s: M Performed By: #### L 500.66573, L500.56133, L500.98883, L500.23801 ####[facility] [id number] [place], [place] [address]Tq# [phone] CO2 molar conc 29 mmol/L Normal 21-32 [facility] Comment [facility] above: Order Comment: Campu s: M Performed By: #### L 500.78901, L500.13624, L500.47378, L500.26307 ####[facility] [id number] [place], [place] [address]Rc# [phone] Creatinine mass conc 1.270 mg/dL High 0.670-1.170 [facility] Comment on above: Order Comment: Campu s: M Result Comment: Macrina ents receiving either N-Acetylcysteine (NAC) orMetamizole prior to venipuncture, may have falsely depressedresults. Performed By: #### L 500.91000, L500.31445, L500.91734, L500.02645 ####[facility] [id number] [place], [place] [address]Ym# [phone] Glucose mass conc 131 mg/dL High 70-100 [facility] Comment on above: Order Comment: Campu s: M Result Comment: 70-1 00- Normal Fasting; 100-125 Impaired Fasting; greaterthan 126 on more than one result- Diabetes. ADA guidelines.Results may be falsely elevated after the administration ofSulfapyridine.Results may be falsely depressed after the administration ofSulfasalazine. Performed By: #### L 500.40552, L500.69492, L500.93115, L500.74135 ####[facility] [id number] [place], [place] [address]Uj# [phone] Potassium molar conc 5.1 mmol/L Normal 3.5-5.1 [facility] Comment on above: Order Comment: Campu s: M Performed By: #### L 500.22912, L500.54678, L500.76219, L500.16471 ####[facility] [id number] [place], [place] [address]Gu# [phone] Sodium molar conc 140 mmol/L Normal 136-145 [facility] Comment on above: Order Comment: Campu s: M Performed By: #### L 500.45826, L500.15803, L500.45824, L500.15249 ####[facility] [id number] [place], [place] [address]Fi# [phone] Urea nitrogen mass conc 51 mg/dL High 7- [facility] Comment on above: Order Comment: Campu s: M Performed By: #### L 500.38261, L500.10349, L500.26196, L500.63169 ####[facility] [id number] [place], [place] [address]St# [phone] Urea nitrogen/Creatinine mass ratio 40 mg/mg High 15-24 [facility] Comment on above: Order Comment: Campu s: M Performed By: #### L 500.92245, L500.77036, L500.46735, L500.79585 ####[facility] [id number] [place], [place] [address]Jk# [phone] CBC W/DIFFon 02-06-2018 BASO ABS 0.00 K/CU MM Normal 0-0.2 [facility] Comment on above: Order Comment: Campu s: M Performed By: #### L 200.10308 ####[facility] [id number] [place] [address]Rb# [phone] Basophils/100 WBC Auto (Bld) 0.6 % Normal 0-2 [facility] Comment on above: Order Comment: Campu s: M Performed By: #### L 200.14373 ####[facility] [id number] [place] [address]Pj# [phone] EOS ABS 0.20 K/CU MM Normal 0-0.5 [facility] Comment on above: Order Comment: Campu s: M Performed By: #### L 200.04996 ####[facility] [id number] [place] [address]Ct# [phone] Eosinophils/100 WBC Auto (Bld) 3.2 % Normal 0-5 [facility] Comment on above: Order Comment: Campu s: M Performed By: #### L 200.53957 ####[facility] [id number] [place] [address]Mu# [phone] Erythrocyte distribution width Auto Ratio (RBC) 13.5 % Normal 11-14.5 [facility] Comment on above: Order Comment: Campu s: M Performed By: #### L 200.26146 ####[facility] [id number] [place], [place] [address]Ph# [phone] Hematocrit Auto Volume Fraction (Bld) 30.8 % Low 41.0-53.0 [facility] Comment on above: Order Comment: Campu s: M Performed By: #### L 200.74501 ####[place] [address]Ph# [phone] Hemoglobin mass conc (Bld) 9.8 g/dL Low 13.5-17.5 [facility] Comment on above: Order Comment: Campu s: M Performed By: #### L 200.66054 ####[address]# [phone] IMMATR GRAN ABS 0.00 K/CU MM Normal Less than 2 [facility] Comment on above: Order Comment: Campu s: M Performed By: #### L 200.97016 ####[place] [address]Ph# [phone] IMMATURE GRAN % 0.4 % Normal Less than 2 [facility] Comment on above: Order Comment: Campu s: M Performed By: #### L 200.26220 ####[facility] [id number] [place], [place] [address]Ph# [phone] Lymphocytes Auto #/vol (Bld) 1.00 K/CU MM Normal 0.9-4.4 [facility] Comment on above: Order Comment: Campu s: M Performed By: #### L 200.99643 ####[facility] [id number] [place], [place] [address]Ph# [phone] Lymphocytes/100 WBC Auto (Bld) 14.0 % Low 20-40 [facility] Comment on above: Order Comment: Campu s: M Performed By: #### L 200.51789 ####[facility] [id number] [place], [place] [address]Qm# [phone] MCHC Auto mass conc (RBC) 31.8 g/dL Low 32.0-36.0 [facility] Comment on above: Order Comment: Campu s: M Performed By: #### L 200.97186 ####[facility] [id number] [place], [place] [address]Ph# [phone] MCV Auto Entitic volume (RBC) 86.8 fL Normal 80.0-99.0 [facility] Comment on above: Order Comment: Campu s: M Performed By: #### L 200.59334 ####[facility] [id number] [place], [place] [address]Ph# [phone] MONO ABS 0.70 K/CU MM Normal 0.1-1.1 [facility] Comment on above: Order Comment: Campu s: M Performed By: #### L 200.42801 ####[facility] [id number] [place], [place] [address]Ph# [phone] Monocytes/100 WBC Auto (Bld) 10.7 % High 2-10 [facility] Comment on above: Order Comment: Campu s: M Performed By: #### L 200.36844 ####[facility] [id number] [place] [address]Ui# [phone] NEUTROPHIL ABS 4.90 K/CU MM Normal 2.0-8.3 [facility] Comment on above: Order Comment: Campu s: M Performed By: #### L 200.00718 ####[facility] [id number] [place] [address]Xo# [phone] Neutrophils/100 WBC Auto (Bld) 71.1 % Normal 45-75 [facility] Comment on above: Order Comment: Campu s: M Performed By: #### L 200.92384 ####[facility] [id number] [place], [place] [address]Ph# [phone] Nucleated RBC/100 WBC Ratio (Bld) 0.0 % Normal Less than 1 [facility] Comment on above: Order Comment: Campu s: M Performed By: #### L 200.03292 ####[facility] [id number] [place], [place] [address]Gr# [phone] Platelet mean volume Auto Entitic volume (Bld) 9.7 fL Normal 9.4-12.4 [facility] Comment on above: Order Comment: Campu s: M Performed By: #### L 200.75361 ####[address] [address]Jz# [phone] Platelets Auto #/vol (Bld) 315 K/CU MM Normal 150-450 [facility] Comment on above: Order Comment: Campu s: M Performed By: #### L 200.66209 ####[address] [address]Ge# [phone] RBC Auto #/vol (Bld) 3.55 M/CU MM Low 4.50-6.00 [facility] Comment on above: Order Comment: Campu s: M Performed By: #### L 200.38578 ####[place] [address] [place], [place] [address]Iz# [phone] WBC Auto #/vol (Bld) 6.9 K/CU MM Normal 4.5-11.0 [facility] Comment on above: Order Comment: Campu s: M Performed By: #### L 200.51656 ####[facility] [id number] [place] [address]Af# [phone] Tom 02-06-2018 FERR 85.6 NG/ML Normal 24.0-388.0 [facility] Comment on above: Order Comment: Campu s: M Performed By: #### L 500.35380, L500.87254, L500.84851, L500.17865 ####[facility] [id number] [place] [address]Ph# [phone] GFR ESTon 02-06-2018 IF AMER Greater than [address] [facility] [facility] Comment on above: Order Comment: Kahlil s: M Performed By: #### L 500.38641, L500.40390, L500.02345, L500.81422 ####[facility] [id number] [place], [place] [address]Ba# [phone] IF non-AFR AMER 58 ML/MIN Normal [facility] Comment on above: Order Comment: Kahlil s: M Performed By: #### L 500.44459, L500.59342, L500.91187, L500.32918 ####[facility] [id number] [place], [place] [address]Pe# [phone] IRON PANELon 02-06-2018 Iron mass conc 44 ug/dL Low 65-175 [facility] Comment on above: Order Comment: Kahlil s: M Result Comment: Macrina ents treated with metal-binding drugs (e.g.deferoxamine)may have depressed iron values, as chelated iron may notproperly react in the Siemens iron assay. Performed By: #### L 500.74031, L500.15467, L500.91233, L500.70158 ####[facility] [id number] [place], [place] [address]Nw# [phone] IRON SAT 13 % Low 30-44 [facility] Comment on above: Order Comment: Kahlil s: M Performed By: #### L 500.87718, L500.06923, L500.63259, L500.59334 ####[facility] [id number] [place], [place] [address]Uv# [phone] TIBC 337 UG/DL Normal 221-481 [facility] Comment on above: Order Comment: Kahlil s: M Performed By: #### L 500.47680, L500.53679, L500.37466, L500.38122 ####[facility] [id number] [place], [place] [address]Kr# [phone] MRSA PCRon 02-06-2018 MRSA PCR Negative Normal NEGATIVE [facility] Comment on above: Order Comment: Kahlil s: M Result Comment: MORRIS JIMÉNEZ NOTE: TESTING DONE BY PCR TECHNOLOGY. Performed By: #### L 300.11031, L300.21363 ####[facility] [id number] [place], [place] [address]Eo# [phone] SA PCR Positive High NEGATIVE [facility] Comment on above: Order Comment: Kahlil s: M Result Comment: PLEA SE NOTE: TESTING DONE BY PCR TECHNOLOGY. Performed By: #### L 300.30971, L300.51639 ####[facility] [id number] [place], [place] [address]Nc# [phone] PATIENT RETYPEon 02-06-2018 RETYPE INTERP Negative Normal [facility] Comment on above: Order Comment: Kahlil s: MIs This Patient Going To Surgery? YSurgery Date: 02/20/18 PTon 02-06-2018 INR Coag RelTime (PPP) 1.0 {INR} Normal 0.9-1.1 [facility] Comment on above: Order Comment: Kahlil steel: M Result Comment: Rhett mmended PT INR therapeutic range for fdc andprophylactic therapy is 2.0 - 3.0. For heart valve andshunt patients the range is 2.5 - 3.5. Performed By: #### L 300.35220, L300.03101 ####[facility] [id number] [place], [place] [address]Ty# [phone] PTS 11.0 SECONDS Normal 9.4-12.0 [facility] Comment on above: Order Comment: Kahlil s: M Performed By: #### L 300.44330, L300.83992 ####[facility] [id number] [place], [place] [address]Bu# [phone] PTTon 02-06-2018 aPTT Coag time (Bld) 26.1 s Normal 22.5-31.4 [facility] Comment on above: Order Comment: Kahlil steel: M Result Comment: Ther apeutic Heparin Reference Range: [...] using the PTT. Performed By: #### L 300.61405, L300.49544 ####[facility] [id number] [place], [place] [address]Tr# [phone] [facility] Note on 08-15-2017 [facility] Note Normal [facility], [facility] ([place]) Patient Summary Documentson 08-15-2017 Patient Summary Documents Normal [facility]) XR WRIST MINIMUM 3 VIEWS LEF Ton [...] distal left radius fracture. Interpreted By: Bassem Smithreliminary Report By: Bassem Smith MDElectronically Signed By: Bassem Smith MD Dictated Date: 08/15/2017 7:01:58 AM Prelim Date: 08/15/2017 7:01:58 AM Sign Date: 08/15/2017 7:02:58 AM Normal [facility] ([place]) Lab Report: Basic Metabolic Profile (BMP)on 07-04-2017 Anion gap 9 mmol/L Invalid Interpretation Code 5-15 [facility] Work Phone: [phone] BUN/Creatinine Ratio 33.3 RATIO High 10-20 [facility] Work Phone: [phone] Calcium 8.7 mg/dL Invalid Interpretation Code 8.5-10.1 [facility] Work Phone: [phone] Chloride 103 mmol/L Invalid Interpretation Code 98-107 [facility] Work Phone: [phone] 26.0 mmol/L Invalid Interpretation Code 21.0-32.0 [facility] Phone: [phone] Creatinine 1.11 mg/dL Invalid Interpretation Code 0.70-1.30 [employer] [facility] Work Phone: [phone] eGFR (non-black) 72 mL/min/{1.73_m2} Invalid Interpretation Code >60 [employer] [facility] Work Phone: [phone] eGFR (non-black) 87 mL/min/{1.73_m2} Invalid Interpretation Code >60 [employer] Work Phone: [phone] Glucose mass conc 140 mg/dL High 70-110 [employer] [facility] Work Phone: [phone] Potassium molar conc 4.2 mmol/L Invalid Interpretation Code 3.5-5.1 [facility] Phone: [phone] Sodium 138 mmol/L Invalid Interpretation Code 136-145 [facility] Phone: [phone] Urea nitrogen 37 mg/dL High 7-18 [employer] Work Phone: [phone] Office Visiton 05-25-2017 Documentation of current medications (procedure) Done Invalid Interpretation Code [facility] Phone: [phone] Fall risk assessment No Invalid Interpretation Code [facility] Phone: [phone] Tobacco use CPHS Former smoker Invalid Interpretation Code [facility] Phone: [phone] Replaced Document: [facility] E CG Observationson 05-25-2017 BUN (urea nitrogen) Sinus Rhythm -Incomp lete right bundle branch block. -Inferior infarct -probably not recent -Old anterior infarct. ABNORMAL Invalid Interpretation Code [facility] Phone: [phone] EKG QRS axis -22 deg Invalid Interpretation Code [employer] Work Phone: [phone] P [place] 58 deg Invalid Interpretation Code [facility] Phone: [phone] TX Interval 182 ms Invalid Interpretation Code [facility] Phone: [phone] Pulse (Heart Rate) 83 /min Invalid Interpretation Code [facility] Phone: [phone] QRS Duration 114 ms Invalid Interpretation Code [employer] Work Phone: [phone] QT Interval new path ms Invalid Interpretation Code [facility] Work Phone: [phone] QTc Hernández 414 ms Invalid Interpretation Code [facility] Work Phone: [phone] T [place] 1 deg Invalid Interpretation Code [facility] Work Phone: [phone] Clinical Lists 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 [id number] [facility] [id number] [place] [address] 01-09-2025 16:14-0400 SaO2% (BldA) [Mass fraction] 99 % [facility] Comment on above: Order Comment: Specimen Type: ARTERIAL B LOOD SPECIMENOrdering Facility: [facility] Address: [address] [place] [address] Performed By: #### A LLBG ####[place] [id number] [place] [address] RESPIRATORY [id number] [place] [address] 01-08-2025 15:00-0400 SaO2% (BldA) [Mass fraction] 93 % [facility] Comment on above: Order Comment: Specimen Type: ARTERIAL B LOOD SPECIMENOrdering Facility: [facility] Address: [address] [place] [address] Performed By: #### A LLBG ####[place] [id number] [place] [address] RESPIRATORY [id number] [place] [address] 01-08-2025 11:17-0400 SaO2% (BldA) [Mass fraction] 96 % [facility] Comment on above: Order Comment: Specimen Type: ARTERIAL B LOOD SPECIMENOrdering Facility: [facility] Address: [address] [place] [id number] Performed By: #### A LLBG ####[facility] [id number] [facility]IR[facility] [id number] [place] [id number] 01-07-2025 08:22-0400 Body temperature 97.9 [degF] Dr. Rigoberto Gould MD Work Phone: 1(786)076-807033 [place] [address] 01-07-2025 08:22-0400 Diastolic blood pressure 77 mm[Hg] Dr. Rigoberto abarca MD Work Phone: 2(119)015-553733 [place] [address] 01-07-2025 08:22-0400 Heart rate 71 /min Dr. Rigoberto Gould MD Work Phone: 3(962)799-692133 [place] [address] 01-07-2025 08:22-0400 Respiratory rate 16 /min Dr. Rigoberto Gould MD Work Phone: [phone])083-101833 [place] [address] 01-07-2025 08:22-0400 SaO2% (BldA) [Mass fraction] 99 % Dr. Rigoberto Gould MD Work Phone: 2(984)147-824333 [place] [address] 01-07-2025 08:22-0400 Systolic blood pressure 125 mm[Hg] Dr. Rigoberto Gould MD Work Phone: 5(101)356-379833 [place] [address] 01-07-2025 06:00-0400 Inhaled oxygen flow rate 2 L/min Dr. Rigoberto abarca MD Work Phone: 3(372)668-567833 [place] [address] 01-06-2025 18:08-0400 Body mass index (BMI) [Ratio] 23.6 kg/m2 Dr. Rigoberto Gould MD Work Phone: 6(539)234-569633 [place] [address] 01-06-2025 18:08-0400 Body weight 74.[address] Rigoberto Gould MD Work Phone: 0(876)914-963233 [place] [address] 01-06-2025 18:06-0400 Body height 177.[address] Rigoberto Gould MD Work Phone: 1(609)057-726433 [place] [address] 12-30-2024 14:43-0400 Body mass index (BMI) [Ratio] 25.4 kg/m2 Jensen Puckett Jr., MD Work Phone: [facility] 12-30-2024 14:43-0400 Body weight 80.29 kg Jensen Puckett Jr., MD Work Phone: [facility] 12-29-2024 18:46-0400 Diastolic blood pressure 78 mm[Hg] Dr. Rigoberto abarca MD Work Phone: [facility] 12-29-2024 18:46-0400 Heart rate 75 /min Dr. Rigoberto Gould MD Work Phone: [facility] 12-29-2024 18:46-0400 Respiratory rate 16 /min Dr. Rigoberto Gould MD Work Phone: [facility] 12-29-2024 18:46-0400 SaO2% (BldA) [Mass fraction] 94 % Dr. Rigoberto Gould MD Work Phone: [facility] 12-29-2024 18:46-0400 Systolic blood pressure 114 mm[Hg] Dr. Rigoberto Gould MD Work Phone: [facility] 12-29-2024 17:00-0400 Body temperature 97.6 [degF] Dr. Rigoberto Gould MD Work Phone: [facility] 12-29-2024 15:16-0400 Body mass index (BMI) [Ratio] 25.4 kg/m2 Dr. Rigoberto Gould MD Work Phone: [facility] 12-29-2024 15:16-0400 Body weight 80.[address] Rigoberto Gould MD Work Phone: [facility] 12-29-2024 14:45-0400 Body mass index (BMI) [Ratio] 25.4 kg/m2 Rigoberto Gould MD Work Phone: [facility] 12-29-2024 14:45-0400 Body weight 80.29 kg Rigoberto Gould MD Work Phone: [facility] 12-29-2024 14:45-0400 Diastolic blood pressure 62 mm[Hg] Rigoberto Gould MD Work Phone: [facility] 12-29-2024 14:45-0400 Heart rate 72 /min Rigoberto Gould MD Work Phone: [facility] 12-29-2024 14:45-0400 SaO2% (BldA) [Mass fraction] 96 % Rigoberto Gould MD Work Phone: [facility] 12-29-2024 14:45-0400 Systolic blood pressure 104 mm[Hg] Rigoberto Gould MD Work Phone: [facility] 12-26-2024 08:15-0400 Body mass index (BMI) [Ratio] 24.5 kg/m2 Dr. Rigoberto Gould MD Work Phone: [facility] 12-26-2024 08:15-0400 Body weight 77.[address] Rigoberto Gould MD Work Phone: 4(831)356-512230 [place] [address] 12-26-2024 08:15-0400 Diastolic blood pressure 62 mm[Hg] Dr. Rigoberto abarca MD Work Phone: 7(148)213-355330 [place] [address] 12-26-2024 08:15-0400 Heart rate 75 /min Dr. Rigoberto Gould MD Work Phone: 0(765)565-050330 [place] [address] 12-26-2024 08:15-0400 Respiratory rate 18 /min Dr. Rigoberto Gould MD Work Phone: 2(510)777-652730 [place] [address] 12-26-2024 08:15-0400 Systolic blood pressure 102 mm[Hg] Dr. Rigoberto Gould MD Work Phone: 7(171)520-212230 [place] [address] 12-22-2024 21:22-0400 Body temperature 97.6 [degF] Dr. Rigoberto Gould MD Work Phone: 8(736)397-631030 [place] [address] 12-22-2024 21:22-0400 Diastolic blood pressure 73 mm[Hg] Dr. Rigoberto abarca MD Work Phone: 5(038)866-107530 [place] [address] 12-22-2024 21:22-0400 Heart rate 72 /min Dr. Rigoberto Gould MD Work Phone: 8(394)643-583433 [place] [address] 12-22-2024 21:22-0400 Respiratory rate 18 /min Dr. Rigoberto Gould MD Work Phone: 9(607)574-662333 [place] [address] 12-22-2024 21:22-0400 SaO2% (BldA) [Mass fraction] 96 % Dr. Rigoberto Gould MD Work Phone: 1(699)701-130433 [place] [address] 12-22-2024 21:22-0400 Systolic blood pressure 124 mm[Hg] Dr. Rigoberto Gould MD Work Phone: 9(029)314-175633 [place] [address] 12-13-2024 15:17-0400 Body mass index (BMI) [Ratio] 25.1 kg/m2 Dr. Rigoberto Gould MD Work Phone: 4(909)434-655733 [place] [address] 12-13-2024 15:17-0400 Body weight 79.[address] Rigoberto Gould MD Work Phone: 9(579)107-455333 [place] [address] 12-13-2024 14:30-0400 Body temperature 97.6 [degF] Dr. Rigoberto Gould MD Work Phone: 0(876)733-365233 [place] [address] 12-13-2024 14:30-0400 Diastolic blood pressure 75 mm[Hg] Dr. Rigoberto abarca MD Work Phone: 9(854)665-767733 [place] [address] 12-13-2024 14:30-0400 Heart rate 84 /min Dr. Rigoberto Gould MD Work Phone: 4(006)768-969533 [place] [address] 12-13-2024 14:30-0400 Respiratory rate 18 /min Dr. Rigoberto Gould MD Work Phone: 8(756)770-954533 [place] [address] 12-13-2024 14:30-0400 SaO2% (BldA) [Mass fraction] 93 % Dr. Rigoberto Gould MD Work Phone: [phone] [place] [address] 12-13-2024 14:30-0400 Systolic blood pressure 118 mm[Hg] Dr. Rigoberto Gould MD Work Phone: [phone] [place] [address] 12-12-2024 09:51-0400 Body height 177.[address] Rigoberto Gould MD Work Phone: [phone] [place] [address] 12-11-2024 18:00-0400 Diastolic blood pressure 78 mm[Hg] Dr. Rigoberto abarca MD Work Phone: 6(906)528-765930 [place] [address] 12-11-2024 18:00-0400 Heart rate 77 /min Dr. Rigoberto Gould MD Work Phone: 7(024)957-278733 [place] [address] 12-11-2024 18:00-0400 Respiratory rate 18 /min Dr. Rigoberto Gould MD Work Phone: 7(940)606-058033 [place] [address] 12-11-2024 18:00-0400 SaO2% (BldA) [Mass fraction] 97 % Dr. Rigoberto Gould MD Work Phone: 5(266)448-292633 [place] [address] 12-11-2024 18:00-0400 Systolic blood pressure 134 mm[Hg] Dr. Rigoberto Gould MD Work Phone: 2(924)778-104033 [place] [address] 12-11-2024 14:17-0400 Body height 177.[address] Rigoberto Gould MD Work Phone: 2(434)668-875133 [place] [address] 12-11-2024 14:17-0400 Body temperature 97.6 [degF] Dr. Rigoberto Gould MD Work Phone: 8(430)488-157133 [place] [address] 12-05-2024 13:16-0400 Body mass index (BMI) [Ratio] 25.68 kg/m2 Alexus Suppan ENTRY LEVEL STAFF ACCOUNTANT.THEATRICAL PERFORMER Work Phone: [facility] 12-05-2024 13:16-0400 Body temperature 97.3 [degF] Alexus Suppan ENTRY LEVEL STAFF ACCOUNTANT.THEATRICAL PERFORMER Work Phone: [facility] 12-05-2024 13:16-0400 Body weight 81.19 kg Alexus Suppan ENTRY LEVEL STAFF ACCOUNTANT.THEATRICAL PERFORMER Work Phone: [facility] 12-05-2024 13:16-0400 Diastolic blood pressure 68 mm[Hg] Alexus Supp an ENTRY LEVEL STAFF ACCOUNTANT.THEATRICAL PERFORMER Work Phone: [facility] 12-05-2024 13:16-0400 Heart rate 85 /min Alexus Lovelacean ENTRY LEVEL STAFF ACCOUNTANT.THEATRICAL PERFORMER Work Phone: [facility] 12-05-2024 13:16-0400 SaO2% (BldA) [Mass fraction] 97 % Alexus Suppan ENTRY LEVEL STAFF ACCOUNTANT.THEATRICAL PERFORMER Work Phone: [facility] 12-05-2024 13:16-0400 Systolic blood pressure 122 mm[Hg] Alexus Lovelacea n ENTRY LEVEL STAFF ACCOUNTANT.THEATRICAL PERFORMER Work Phone: [facility] 10-28-2024 12:56-0500 Body mass index (BMI) [Ratio] 26.9 kg/m2 Dr. Rigoberto Gould MD Work Phone: [facility] 10-28-2024 12:56-0500 Body weight 85.[address] Rigoberto Gould MD Work Phone: 0(002)[phone] [place] [address] 10-28-2024 12:56-0500 Diastolic blood pressure 85 mm[Hg] Dr. Rigoberto abarca MD Work Phone: [facility] 10-28-2024 12:56-0500 Heart rate 68 /min Dr. Rigoberto Gould MD Work Phone: 5(426)676-338130 [place] [address] 10-28-2024 12:56-0500 Respiratory rate 18 /min Dr. Rigoberto Gould MD Work Phone: [facility] 10-28-2024 12:56-0500 SaO2% (BldA) [Mass fraction] 92 % Dr. Rigoberto Gould MD Work Phone: [facility] 10-28-2024 12:56-0500 Systolic blood pressure 133 mm[Hg] Dr. Rigoberto Gould MD Work Phone: [facility] 10-07-2024 14:38-0500 Body mass index (BMI) [Ratio] 24.39 kg/m2 Alexus Lovelacean ENTRY LEVEL STAFF ACCOUNTANT.THEATRICAL PERFORMER Work Phone: [facility] 10-07-2024 14:38-0500 Body weight 77.11 kg Alexus Suppan ENTRY LEVEL STAFF ACCOUNTANT.THEATRICAL PERFORMER Work Phone: [facility] 10-07-2024 14:38-0500 Diastolic blood pressure 64 mm[Hg] Alexus Supp an ENTRY LEVEL STAFF ACCOUNTANT.THEATRICAL PERFORMER Work Phone: [facility] 10-07-2024 14:38-0500 Heart rate 78 /min Alexus Suppan ENTRY LEVEL STAFF ACCOUNTANT.THEATRICAL PERFORMER Work Phone: [facility] 10-07-2024 14:38-0500 Respiratory rate 16 /min Alexus Suppan ENTRY LEVEL STAFF ACCOUNTANT.THEATRICAL PERFORMER Work Phone: [facility] 10-07-2024 14:38-0500 Systolic blood pressure 116 mm[Hg] Alexus Suppa n ENTRY LEVEL STAFF ACCOUNTANT.THEATRICAL PERFORMER Work Phone: [facility] 09-04-2024 08:19-0500 Diastolic blood pressure 60 mm[Hg] Alexus Supp an ENTRY LEVEL STAFF ACCOUNTANT.THEATRICAL PERFORMER Work Phone: [facility] 09-04-2024 08:19-0500 Systolic blood pressure 122 mm[Hg] Alexus Suppa n ENTRY LEVEL STAFF ACCOUNTANT.THEATRICAL PERFORMER Work Phone: [facility] 09-04-2024 08:05-0500 Body temperature 97 [degF] Alexus Suppan ENTRY LEVEL STAFF ACCOUNTANT.THEATRICAL PERFORMER Work Phone: [facility] 09-04-2024 08:05-0500 Heart rate 91 /min Alexus Suppan ENTRY LEVEL STAFF ACCOUNTANT.THEATRICAL PERFORMER Work Phone: [facility] 09-04-2024 08:05-0500 SaO2% (BldA) [Mass fraction] 93 % Alexus Suppan ENTRY LEVEL STAFF ACCOUNTANT.THEATRICAL PERFORMER Work Phone: [facility] 06-30-2024 13:07-0500 Diastolic blood pressure 62 mm[Hg] Alexus Supp an ENTRY LEVEL STAFF ACCOUNTANT.THEATRICAL PERFORMER Work Phone: [facility] 06-30-2024 13:07-0500 Systolic blood pressure 118 mm[Hg] Alexus Suppa n ENTRY LEVEL STAFF ACCOUNTANT.THEATRICAL PERFORMER Work Phone: [facility] 06-30-2024 12:45-0500 Body mass index (BMI) [Ratio] 24.54 kg/m2 Alexus Suppan ENTRY LEVEL STAFF ACCOUNTANT.THEATRICAL PERFORMER Work Phone: [facility] 06-30-2024 12:45-0500 Body weight 77.56 kg Alexus Suppan ENTRY LEVEL STAFF ACCOUNTANT.THEATRICAL PERFORMER Work Phone: [facility] 06-30-2024 12:45-0500 Heart rate 60 /min Alexus Suppan ENTRY LEVEL STAFF ACCOUNTANT.THEATRICAL PERFORMER Work Phone: [facility] 06-30-2024 12:45-0500 Respiratory rate 16 /min Alexus Suppan ENTRY LEVEL STAFF ACCOUNTANT.THEATRICAL PERFORMER Work Phone: [facility] 06-30-2024 12:45-0500 SaO2% (BldA) [Mass fraction] 95 % Alexus Suppan ENTRY LEVEL STAFF ACCOUNTANT.THEATRICAL PERFORMER Work Phone: [facility] 03-27-2024 12:36-0400 Diastolic blood pressure 82 mm[Hg] Alexus Supp an ENTRY LEVEL STAFF ACCOUNTANT.THEATRICAL PERFORMER Work Phone: [facility] 03-27-2024 12:36-0400 Heart rate 66 /min Alexus Suppan ENTRY LEVEL STAFF ACCOUNTANT.THEATRICAL PERFORMER Work Phone: [facility] 03-27-2024 12:36-0400 SaO2% (BldA) [Mass fraction] 95 % Alexus Suppan ENTRY LEVEL STAFF ACCOUNTANT.THEATRICAL PERFORMER Work Phone: [facility] 03-27-2024 12:36-0400 Systolic blood pressure 158 mm[Hg] Alexus Suppa n ENTRY LEVEL STAFF ACCOUNTANT.THEATRICAL PERFORMER Work Phone: [facility] 12-07-2023 14:34-0400 Body weight 77.56 kg Melanie Rushing MD Work Phone: [facility] 12-07-2023 14:34-0400 Diastolic blood pressure 62 mm[Hg] Melanie Rushing MD Work Phone: [facility] 12-07-2023 14:34-0400 Heart rate 68 /min Melanie Rushing MD Work Phone: [facility] 12-07-2023 14:34-0400 SaO2% (BldA) [Mass fraction] 96 % Melanie Rushing MD Work Phone: [facility] 12-07-2023 14:34-0400 Systolic blood pressure 110 mm[Hg] Melanie Rushing MD Work Phone: [facility] 11-08-2023 14:14-0400 Body weight 77.11 kg Alexus Suppan ENTRY LEVEL STAFF ACCOUNTANT.SANFORIZING MACHINE OPERATOR Work Phone: [facility] 11-08-2023 14:14-0400 Diastolic blood pressure 92 mm[Hg] Alexus Supp an ENTRY LEVEL STAFF ACCOUNTANT.SANFORIZING MACHINE OPERATOR Work Phone: [facility] 11-08-2023 14:14-0400 Heart rate 72 /min Alexus Suppan ENTRY LEVEL STAFF ACCOUNTANT.SANFORIZING MACHINE OPERATOR Work Phone: [facility] 11-08-2023 14:14-0400 Respiratory rate 16 /min Alexus Suppan ENTRY LEVEL STAFF ACCOUNTANT.SANFORIZING MACHINE OPERATOR Work Phone: [facility] 11-08-2023 14:14-0400 SaO2% (BldA) [Mass fraction] 97 % Alexus Suppan ENTRY LEVEL STAFF ACCOUNTANT.SANFORIZING MACHINE OPERATOR Work Phone: [facility] 11-08-2023 14:14-0400 Systolic blood pressure 164 mm[Hg] Alexus Suppa n ENTRY LEVEL STAFF ACCOUNTANT.SANFORIZING MACHINE OPERATOR Work Phone: [facility] 05-17-2023 12:10-0400 Body temperature 97.11 [degF] Robinson Henao MD Work Phone: [facility] 05-17-2023 12:10-0400 Body weight 77.02 kg Robinson Henao MD Work Phone: [facility] 05-17-2023 12:10-0400 Diastolic blood pressure 71 mm[Hg] Robinson Henao MD Work Phone: [facility] 05-17-2023 12:10-0400 Heart rate 62 /min Robinson Henao MD Work Phone: [facility] 05-17-2023 12:10-0400 Respiratory rate 18 /min Robinson Henao MD Work Phone: [facility] 05-17-2023 12:10-0400 SaO2% (BldA) [Mass fraction] 94 % Robinson Henao MD Work Phone: [facility] 05-17-2023 12:10-0400 Systolic blood pressure 154 mm[Hg] Robinson Hansen Work Phone: [facility] 10-30-2022 11:02-0500 Body height 177.8 cm Rigoberto Gould MD Work Phone: [facility] 10-30-2022 11:02-0500 Body weight 82.56 kg Rigoberto Gould MD Work Phone: [facility] 10-30-2022 11:02-0500 Diastolic blood pressure 66 mm[Hg] Rigoberto Gould MD Work Phone: [facility] 10-30-2022 11:02-0500 Heart rate 60 /min Rigoberto Gould MD Work Phone: [facility] 10-30-2022 11:02-0500 SaO2% (BldA) [Mass fraction] 95 % Rigoberto Gould MD Work Phone: [facility] 10-30-2022 11:02-0500 Systolic blood pressure 106 mm[Hg] Rigoberto Gould MD Work Phone: [facility] 07-31-2022 11:22-0500 Body height 177.8 cm Rigoberto Gould MD Work Phone: [facility] 07-31-2022 11:22-0500 Body weight 84.37 kg Rigoberto Gould MD Work Phone: [facility] 07-31-2022 11:22-0500 Diastolic blood pressure 80 mm[Hg] Rigoberto Gould MD Work Phone: [facility] 07-31-2022 11:22-0500 Heart rate 58 /min Rigoberto Gould MD Work Phone: [facility] 07-31-2022 11:22-0500 SaO2% (BldA) [Mass fraction] 95 % Rigoberto oGuld MD Work Phone: [facility] 07-31-2022 11:22-0500 Systolic blood pressure 118 mm[Hg] Rigoberto Gould MD Work Phone: [facility] 06-05-2022 14:30-0400 Body weight 84.37 kg Rigoberto Gould MD Work Phone: [facility] 06-05-2022 14:30-0400 Diastolic blood pressure 64 mm[Hg] Rigoberto Gould MD Work Phone: [facility] 06-05-2022 14:30-0400 Heart rate 64 /min Rigoberto Gould MD Work Phone: [facility] 06-05-2022 14:30-0400 Systolic blood pressure 132 mm[Hg] Rigoberto Gould MD Work Phone: [facility] 03-06-2022 12:06-0400 Body temperature 98.01 [degF] W. Luis RASMUSSEN Work Phone: [facility] 03-06-2022 12:06-0400 Body weight 80.74 kg WDavion Smith MD Work Phone: [facility] 03-06-2022 12:06-0400 Diastolic blood pressure 72 mm[Hg] Samra Smith MD Work Phone: [facility] 03-06-2022 12:06-0400 Heart rate 62 /min Samra Smith MD Work Phone: [facility] 03-06-2022 12:06-0400 Systolic blood pressure 143 mm[Hg] Samra Smith MD Work Phone: [facility] 12-02-2021 13:06-0400 Body weight 82.1 kg Rigobetro Gould MD Work Phone: [facility] 12-02-2021 13:06-0400 Diastolic blood pressure 72 mm[Hg] Rigoberto Gould MD Work Phone: [facility] 12-02-2021 13:06-0400 Heart rate 66 /min Rigoberto Gould MD Work Phone: [facility] 12-02-2021 13:06-0400 SaO2% (BldA) [Mass fraction] 93 % Rigoberto Gould MD Work Phone: [facility] 12-02-2021 13:06-0400 Systolic blood pressure 124 mm[Hg] Rigoberto Gould MD Work Phone: [facility] 2020 11:40-0500 BP Diastolic 77 mm[Hg] [...] Mass Index) 24.53 kg/m2 Lee Chacon MD [facility] Work Phone: 05-25-2017 13:57-0400 Body Temperature 98.4 [degF] Lee Chacon MD [facility] Work Phone: 05-25-2017 13:57-0400 BP Diastolic 90 mm[Hg] Lee Chacon MD [facility] Work Phone: 05-25-2017 13:57-0400 BP Systolic 164 mm[Hg] Lee Chacon MD [facility] Work Phone: 05-25-2017 13:57-0400 Height 177.8 cm [facility] Work Phone: 05-25-2017 13:57-0400 Pulse (Heart Rate) 88 /min [facility] Work Phone: 05-25-2017 13:57-0400 Respiratory Rate 18 /min [facility] Work Phone: 05-25-2017 13:57-0400 Weight 77.57 kg Lee Chacon MD [facility] Work Phone: 05-25-2017 13:57-0400 Weight 77.56 kg Lee Chacon MD [facility] Work Phone: Encounters Encounter Date Encounter Type Care Provider Facility Start: 01-28-2025 End: 01-28-2025 Emergency department patient visit Rafa Felder Facility:[facility] Start: 01-28-2025 ambulatory Mary Jo Granados Facility :[facility] Start: 01-22-2025 End: 01-22-2025 Telephone encounter Jensen Puckett MD Work Phone: Urology Comment on above: CIC Clarification Start: 01-21-2025 ambulatory [facility] Facility:[facility] Start: 01-09-2025 End: 01-23-2025 Telephone encounter Rigoberto Gould MD Work Phone: [facility] Comment on above: Patient Update Start: 01-08-2025 End: 01-08-2025 Patient Outreach Floyd Richmond RN Work Phone: Command And Control Officer Management Comment on above: Transition Of Care ( Reach in) Start: 01-07-2025 End: 01-16-2025 Evaluation and management of inpatient EVARISTO DAS Facility:[facility] Start: 01-06-2025 End: 01-07-2025 Dr. Rigoberto Gould MD Work Phone: -Emergency Department Work Phone: Start: 01-06-2025 End: 01-07-2025 Emergency department patient visit Dr. Rigoberto Gould MD Work Phone: [facility] Work Phone: Start: 01-06-2025 End: 01-06-2025 Nursing evaluation of patient and report Nurse Urol [facility] Work Phone: Urology Comment on above: Urine retention (Caprice macey Dx) Start: 01-06-2025 End: 01-06-2025 ambulatory [facility] Facility:[facility] Start: 01-05-2025 End: 01-06-2025 Telephone encounter Jensen Puckett MD Work Phone: Urology Start: 01-02-2025 End: 01-02-2025 Telephone encounter Alexus Mendez ENTRY LEVEL STAFF ACCOUNTANT.THEATRICAL PERFORMER Work Phone: [facility] Comment on above: Medication Problem Start: 12-30-2024 End: 12-30-2024 ambulatory Macey Moe RN NURSE TENNIS CENTRE MANAGER Start: 12-30-2024 End: 12-30-2024 Patient encounter procedure Macey Moe RN NURSE [employer]ENNIS CENTRE MANAGER Comment on above: Referral Request Urinary retention (P rimary Dx) Start: 12-30-2024 End: 12-30-2024 Telephone encounter Rigoberto Gould MD Work Phone: [facility] Comment on above: Patient Update Start: 12-29-2024 End: 12-29-2024 Dr. Ra Aaron DO -Emergency Department Work Phone: Start: 12-29-2024 End: 12-29-2024 Emergency department patient visit [facility] Facility:[facility] Start: 12-29-2024 End: 12-29-2024 Patient encounter procedure Rigoberto Gould MD Work Phone: [facility] Comment on above: Urinary tract infect ion without hematuria, site unspecified (Primary Dx); Urinary retention Start: 12-29-2024 End: 12-29-2024 ambulatory [facility] Facility:[facility] Start: 12-26-2024 End: 12-26-2024 Flornecia Brian [facility] Work Phone: Start: 12-26-2024 End: 12-26-2024 ambulatory Rigoberto Gould MD Work Phone: [facility] Comment on above: urine retention Start: 12-22-2024 End: 12-22-2024 [facility] Start: 12-22-2024 End: 12-22-2024 Emergency department patient visit Nicho Nelson Facility:[facility] Start: 12-17-2024 End: 12-17-2024 ambulatory NUPUR DE LA ROSA Facility:[facility] Start: 12-16-2024 End: 12-16-2024 ambulatory Yanet Preciado RN Work Phone: Command And Control Officer Management Start: 12-15-2024 End: 12-16-2024 Patient Outreach Kristan Fontanez RN Command And Control Officer Management Comment on above: Transition Of Care ( TCM Initial Hospital Discharge-OON) Start: 12-13-2024 Non-patient / Non-visit Dr. Dulce Restrepo MD [facility] Work Phone: Start: 12-13-2024 Dr. Sukumar Morales and -[facility] Work Phone: Start: 12-13-2024 Non-patient / Non-visit Dr. Clari Claire MD [facility] Start: 12-13-2024 Dr. Jensen ortega MD [facility] Start: 12-12-2024 ambulatory José Miguel Nunez Facility:[facility] Start: 12-12-2024 Non-patient / Non-visit Dr. Fran RASMUSSEN [facility] Start: 12-12-2024 Dr. José Miguel Nunez [facility] Start: 12-12-2024 Non-patient / Non-visit [facility] Start: 12-12-2024 Dr. Jensen ortega [facility] Start: 12-11-2024 ambulatory Jensen Claire Facility :[facility] Start: 12-11-2024 Non-patient / Non-visit Dr. Clari lCaire MD [facility] Start: 12-11-2024 Dr. Jensen ortega [facility] Start: 12-11-2024 Non-patient / Non-visit Dr. Marjan Granados MD [facility] Work Phone: Start: 12-11-2024 ambulatory Mary Jo Granados Facility :[facility] Start: 12-11-2024 End: 12-13-2024 Evaluation and management of inpatient Dr. Mary Jo Granados MD -Progressive Care Unit Work Phone: Start: 12-11-2024 End: 12-13-2024 Dr. Sukumar Restrepo MD -Progressive Care Unit Work Phone: Start: 12-05-2024 End: 12-05-2024 ambulatory ALEXUS MENDEZ Facility:[facility] Start: 12-05-2024 End: 12-05-2024 Office outpatient visit 15 minutes Alexus Mendez ENTRY LEVEL STAFF ACCOUNTANT.THEATRICAL PERFORMER Work Phone: [facility] Comment on above: Chronic insomnia (Pr imary Dx); URI, acute; Type 2 diabetes mellitus without complication, with long-term current use of insulin (HCC); Arteriosclerotic heart disease (ASHD) Start: 12-03-2024 ambulatory UNKNOWN PROVIDER Facili ty:[facility] Start: 12-03-2024 End: 12-03-2024 Subsequent hospital visit by physician Gi/Gu [address] [facility] Work Phone: Radiology Comment on above: Pain of right hip [M 25.551] Start: 11-26-2024 End: 11-26-2024 Subsequent hospital visit by physician [facility] 1 Work Phone: Molecular Imaging Comment on above: Pain of right hip [M 25.551] Start: 11-26-2024 End: 11-28-2024 ambulatory Alexus Mendez ENTRY LEVEL STAFF ACCOUNTANT.THEATRICAL PERFORMER Work Phone: [facility] [place] Comment on above: Cough Start: 11-26-2024 End: 11-26-2024 Subsequent hospital visit by physician [facility] 1 Work Phone: Molecular Imaging Comment on above: Pain of right hip [M 25.551] Start: 11-20-2024 End: 11-21-2024 Telephone encounter Rigboerto Gould MD Work Phone: [facility] [place] Comment on above: Home Health Orders Results Start: 11-14-2024 End: 11-14-2024 ambulatory RIGOBERTO GOULD Facility:[facility] Start: 11-14-2024 End: 11-14-2024 Patient encounter procedure Nupur De La Rosa MD Work Phone: Orthopaedics Comment on above: Pain of right hip (P rimary Dx) Start: 11-14-2024 End: 11-14-2024 ambulatory [facility] Facility:[facility] Start: 11-14-2024 End: 11-14-2024 Subsequent hospital visit by physician [facility] Work Phone: Radiology Comment on above: [...] End: 11-09-2024 ambulatory Candice Mayer RN NURSE [employer] MANAGER Comment on above: FYI-No Action Needed Start: 11-09-2024 End: 11-23-2024 Telephone encounter Kolton Hein MD Work Phone: [place] Provider Adult Start: 10-28-2024 End: 10-28-[address] Jensen Claire MD -[place] [facility] Work Phone: Start: 10-28-2024 End: 10-28-2024 Dr. [facility] Work [facility]: Start: 10-28-2024 End: 10-28-2024 ambulatory [facility] Facility:[facility] Start: 10-17-2024 End: 10-17-2024 ambulatory NUPUR DE LA ROSA Facility:[facility] Start: 10-17-2024 End: 10-17-2024 Patient encounter procedure Nupur De La Rosa MD Work Phone: Orthopaedics Comment on above: Right leg pain (Prim alexis Dx) Start: 10-08-2024 End: 10-09-2024 Telephone encounter Alexus Mendez APRN.THEATRICAL PERFORMER Work Phone: [facility] [place] Comment on above: Medication Problem Start: 10-07-2024 End: 10-07-2024 ambulatory ALEXUS MENDEZ Facility:[facility] Start: 10-07-2024 End: 10-07-2024 Office outpatient visit 15 minutes Alexus Mendez ENTRY LEVEL STAFF ACCOUNTANT.THEATRICAL PERFORMER Work Phone: [facility] [place] Comment on above: Itching (Primary Dx) ; [...] Start: 09-22-2024 End: 09-22-2024 ambulatory UNKNOWN PROVIDER Facility:[facility] Start: 09-22-2024 End: 09-22-2024 Subsequent hospital visit by physician [facility] Work Phone: Radiology Comment on above: Pain in right hip [M 25.551] Start: 09-17-2024 End: 09-17-2024 ambulatory Alexus Mendez ENTRY LEVEL STAFF ACCOUNTANT.THEATRICAL PERFORMER Work Phone: [facility] [place] Comment on above: Leg pain Start: 09-12-2024 ambulatory Rigoberto oGuld Facility:[facility] Start: 09-04-2024 End: 09-04-2024 Office outpatient visit 15 minutes Alexus eMndez ENTRY LEVEL STAFF ACCOUNTANT.THEATRICAL PERFORMER Work Phone: [facility] [place] Comment on above: Nausea (Primary Dx); Gastroenteritis; ESRD (end stage renal disease) on dialysis ([facility]) Start: 09-04-2024 End: 09-04-2024 ambulatory ALEXUS A SUPPAN Facility:[facility] Start: 09-03-2024 End: 09-03-2024 Telephone encounter Alexus Mendez ENTRY LEVEL STAFF ACCOUNTANT.THEATRICAL PERFORMER Work Phone: [facility] [place] Comment on above: Patient Update Start: 09-01-2024 End: 09-01-2024 Telephone encounter Rigoberto Gould MD Work Phone: [facility] Comment on above: Patient Update; Macrina ent [...] 07-15-2024 End: 07-15-2024 Telephone encounter Alexus Mendez ENTRY LEVEL STAFF ACCOUNTANT.THEATRICAL PERFORMER Work Phone: [facility] [place] Start: 07-04-2024 End: 07-04-2024 Refill [facility]oberto Gould MD [facility] [place] Comment on above: Refill Request Start: 06-30-2024 End: 07-11-2024 Telephone encounter Aleuxs Mendez ENTRY LEVEL STAFF ACCOUNTANT.THEATRICAL PERFORMER Work Phone: [facility] [place] Comment on above: Medication Problem Start: 06-30-2024 End: 06-30-2024 ambulatory ALEXUS A SUPPAN Facility:[facility] Start: 06-30-2024 End: 06-30-2024 Office outpatient visit 25 minutes Alexus Mendez APRN.CNP Work Phone: [facility] Comment on above: Ischemic cardiomyopa thy (Primary Dx); Screening for diabetic retinopathy; Screening for depression; Encounter for screening examination for other mental health and behavioral disorders; Arteriosclerotic heart disease (ASHD); Chronic kidney disease (CKD), stage V ([facility]); Encounter for immunization; Gastrointestinal hemorrhage, unspecified gastrointestinal hemorrhage type; Type 2 diabetes mellitus without complication, with long-term current use of insulin ([facility]); PVD (peripheral vascular disease) ([facility]); Hypertension, essential; ESRD (end stage renal disease) on dialysis ([facility]) Start: 06-25-2024 End: 06-25-2024 Patient encounter procedure Nupur De La Rosa MD Work Phone: Orthopaedics Comment on above: Stress fracture of n avicular bone of right foot (Primary Dx); Other closed fracture of proximal end of right tibia, initial encounter Start: 06-25-2024 End: 06-25-2024 ambulatory UNKNOWN PROVIDER Facility:[facility] Start: 06-25-2024 End: 06-25-2024 Subsequent hospital visit by physician [facility] Work Phone: Radiology Comment on above: Pain [R52] Start: 05-19-2024 End: 05-19-2024 ambulatory NUPUR DE LA ROSA Facility:[facility] Start: 05-19-2024 End: 05-19-2024 Patient encounter procedure Nupur De La Rosa MD Work Phone: Orthopaedics Comment on above: Acute right ankle pa in (Primary Dx) Start: 05-07-2024 End: 05-07-2024 Subsequent hospital visit by physician [facility] Leroy Work Phone: Radiology Comment on above: Acute right ankle pa in [M25.571] Start: 05-07-2024 End: 05-07-2024 ambulatory RIGOBERTO GOULD Facility:[facility] Start: 05-07-2024 End: 05-07-2024 Patient encounter [...] Start: 04-02-2024 End: 04-02-2024 ambulatory UNKNOWN PROVIDER Facility:[facility] Start: 04-02-2024 End: 04-02-2024 Subsequent hospital visit by physician [facility] Mob Work Phone: Radiology Comment on above: Right knee pain, uns pecified chronicity [M25.561] Start: 03-27-2024 End: 03-27-2024 ambulatory RIGOBERTO GOULD Facility:[facility] Start: 03-27-2024 End: 03-27-2024 Office outpatient visit 25 minutes Alexus Mendez APRN.CNP Work Phone: [facility] Comment on above: Umbilical hernia wit hout obstruction or gangrene (Primary Dx); Seasonal allergic rhinitis due to pollen; Ischemic cardiomyopathy; History of coronary artery bypass graft; JOHNY (obstructive sleep apnea); PVD (peripheral vascular disease) ([facility]) Start: 03-03-2024 End: 03-03-2024 Patient encounter procedure Nupur De La Rosa MD Work Phone: Orthopaedics Comment on above: Other closed fractur e of proximal end of right tibia, initial encounter (Primary Dx) Start: 03-03-2024 End: 03-03-2024 ambulatory UNKNOWN PROVIDER Facility:[facility] Start: 03-03-2024 End: 03-03-2024 Subsequent hospital visit by physician [facility] Leroy Work Phone: Radiology Comment on [...] End: 02-13-2024 Subsequent hospital visit by physician [facility] Work Phone: Radiology Comment on above: Acute pain of right knee [M25.561] Start: 02-13-2024 End: 02-13-2024 ambulatory NUPUR DE LA ROSA Facility:[facility] Start: 02-13-2024 End: 02-13-2024 Patient encounter procedure Nupur De La Rosa MD Work Phone: Orthopaedics Comment on above: Acute right ankle pa in (Primary Dx); Acute pain of right knee; Other closed fracture of proximal end of right tibia, initial encounter; Right knee pain, unspecified chronicity; Ankylosing spondylitis of multiple sites in spine ([facility]); PVD (peripheral vascular disease) ([facility]) Start: 02-07-2024 Telephone encounter Nupur De La Rosa MD Work Phone: Orthopaedics Comment on above: Appointment Start: 02-05-2024 Telephone encounter Rigoberto Gould MD Work Phone: [facility] Comment on above: Patient Update Start: 01-14-2024 End: 01-14-2024 Nursing evaluation of patient and report Nurse Nery [facility] Work Phone: General Surgery Comment on [...] 11-08-2023 Subsequent hospital visit by physician Herman [facility] [place] Work Phone: Radiology Comment on above: 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 [place] Comment on above: Admit to Jason Jain n Start: 01-01-2023 End: 01-04-2023 Evaluation and management of inpatient RAMÓN BYRD Facility:[id number] Start: 10-30-2022 End: 10-30-2022 Patient encounter procedure Rigoberto Gould MD Work Phone: [facility] [place] Comment on above: Mononeuropathy due t o underlying disease (Primary Dx); PVD (peripheral vascular disease) ([facility]); 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 due to underlying condition, unspecified proliferative retinopathy type ([facility]); ESRD (end stage renal disease) on dialysis ([facility]); Chronic combined systolic and diastolic CHF (congestive heart failure) ([facility]); Ankylosing spondylitis of multiple sites in spine ([facility]); Hypertension, essential; Ischemic cardiomyopathy; JOHNY (obstructive sleep apnea); Osteopenia, senile; Screening for colon cancer; Type 2 diabetes mellitus without complication, with long-term current use of insulin ([facility]) Start: 07-31-2022 End: 07-31-2022 Patient encounter procedure Rigoberto Gould MD Work Phone: [facility] [place] Comment on above: C. difficile colitis (Primary Dx); Need for vaccination; Arteriosclerotic heart disease (ASHD); Hypertension, essential; Ischemic cardiomyopathy; ESRD (end stage renal disease) on dialysis (HCC); JOHNY (obstructive sleep apnea) Start: 07-26-2022 Telephone encounter Aditya Davis CHELSI-C Work Phone: [facility] [place] Comment on above: Referral Request Start: 07-02-2022 Telephone encounter Aditya Davis CHELSI-C Work Phone: [facility] [place] Comment on above: Medication Problem Start: 06-29-2022 Telephone encounter Aditya Davis CHELSI-C Work Phone: [facility] [place] Comment on above: Patient Update Start: 06-22-2022 Telephone encounter Aditya Davis PA-C Work Phone: [facility] [place] Comment on above: Patient Question Start: 06-08-2022 Telephone encounter Aditya Davis PA-C Work Phone: [facility] [place] Comment on above: FYI-PT plan of care Start: 06-05-2022 End: 06-05-2022 Patient encounter procedure Rigoberto Gould MD Work Phone: [facility] [place] Comment on above: Closed fracture of l eft lower extremity, sequela (Primary Dx); ESRD (end stage renal disease) on dialysis ([facility]); Type 2 diabetes mellitus without complication, with long-term current use of insulin ([facility]); Hypertension, essential; JOHNY (obstructive sleep apnea); C. difficile colitis; Gastrointestinal hemorrhage, unspecified gastrointestinal hemorrhage type Start: 06-05-2022 Telephone encounter Aditya Davis PA-C Work Phone: [facility] [place] Comment on above: Patient Update Start: 04-25-2022 Telephone encounter Aditya Davis PA-C Work Phone: [facility] [place] Comment on above: Patient Update Start: 04-11-2022 Telephone encounter Aditya Davis CHELSI-C Work Phone: [facility] [place] Comment on above: Results Start: 03-30-2022 Telephone encounter Aditya Davis PA-C Work Phone: [facility] [place] Comment on above: Patient Question Start: 03-06-2022 ambulatory OUMOU Hadley ity:[facility] Start: 03-06-2022 End: 03-06-2022 Office outpatient new 30 minutes Samra Smith MD Work Phone: [facility] Comment on above: Pre-transplant evalu ation for kidney transplant (Primary Dx) Start: 03-06-2022 End: 03-06-2022 Patient encounter status Samra Smith MD Work Phone: [facility] Start: 02-20-2022 ambulatory No [facility] Start: 12-02-2021 End: 12-02-2021 Patient encounter procedure Rigoberto Gould MD Work Phone: [facility] [place] Comment on above: Arteriosclerotic hea rt disease (ASHD) (Primary Dx); Mononeuropathy due to underlying disease; Hypertension, essential; Acute on chronic diastolic congestive heart failure (HCC); Ischemic cardiomyopathy; History of coronary artery bypass graft; Anemia of chronic renal failure, stage 3 (moderate), unspecified whether stage 3a or 3b CKD ([facility]); Chronic kidney disease, stage IV (severe) ([facility]); 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 due to underlying condition, unspecified proliferative retinopathy type ([facility]) Start: 11-14-2021 Telephone encounter Rigoberto Gould MD Work Phone: [facility] [place] Comment on above: Lab Orders Start: 01-26-2021 End: 01-26-2021 Subsequent hospital visit by physician Nick Mancilla MD Work Phone: [facility] Comment on above: ESRD needing dialysi s ([facility]); Bypass graft stenosis, initial encounter ([facility]) Start: 2020 End: 2020 Subsequent hospital visit by physician Ncik Mancilla Work Phone: [facility] General Surgery Comment on above: Chronic kidney disea se, stage IV (severe) (HCC) (Primary Dx) Start: 11-03-2020 End: 11-03-2020 Subsequent hospital visit by physician Nick Mancilla Work Phone: [facility] Pre-Admit Testing Comment on above: Arrived Start: 07-17-2018 End: 07-22-2018 Evaluation and management of inpatient Jensen Peguero Facility:[facility] Start: 07-15-2018 Patient encounter procedure Jensen Peguero Facility:[facility] Start: 07-12-2018 Patient encounter procedure Jensen Peguero Facility:[facility] Start: 07-10-2018 Patient encounter procedure Jensen Peguero Facility:[facility] Start: 07-08-2018 Patient encounter procedure Jensen Peguero Facility:[facility] Start: 07-04-2018 Patient encounter procedure Jensen Peguero Facility:[facility] Start: 05-20-2018 End: 05-21-2018 Patient encounter STACI BRUNO Facility:B Start: 02-20-2018 Evaluation and manag ement of inpatient Jensen Peguero Facility:[facility] Start: 02-15-2018 Patient encounter procedure Jensen Peguero Facility:[facility] Start: 02-13-2018 Patient encounter procedure Jensen Peguero Facility:[facility] Start: 02-12-2018 Patient encounter procedure Jensen Peguero Facility:[facility] Start: 02-06-2018 Patient encounter procedure Jensen Peguero Facility:[facility] Start: 08-15-2017 End: 08-20-2017 Patient encounter OSMAN COOPER Facility:[facility] Start: 08-15-2017 End: 08-15-2017 Emergency department patient [...] Start: 12-17-2024 Follow-up visit Follow Up NUPUR Miguel KIANACARMEL Start: 12-13-2024 Blood count smear mc rscp [...] Adult depression scr eening assessment Alexus Mendez ENTRY LEVEL STAFF ACCOUNTANT.THEATRICAL PERFORMER Work Phone: Start: 04-02-2024 Radiologic exam knee complete 4/more views Ra Whatley PA-C Work Phone: Start: 03-03-2024 Radiologic exam knee complete 4/more views Ra Whatley PA-C Work Phone: Start: 02-13-2024 Radex ankle complete minimum 3 views Nupur De La Rosa MD Work Phone: Start: 11-08-2023 Radiologic examinati on tibia & fibula 2 views Alexus Mendez ENTRY LEVEL STAFF ACCOUNTANT.THEATRICAL PERFORMER Work Phone: Start: 05-17-2023 Sars-cov-2 detection by dna/rna Robinson Henao MD Work Phone: Start: 01-03-2023 History of coronary artery bypass grafting Hx of CABG Rigoberto Gould MD Work Phone: Start: 01-01-2023 Antibody screen RAMÓN GLASS Comment on above: Order Comment: Speci men Type: BLOOD SPECIMENOrdering Facility: [facility] Address: [address] [address] Performed By: #### T SCR, %[place], DAGT ####[facility] BLOOD BANKCLIA [id number] [address] Start: 04-28-2022 Antibody screen RAMÓN GLASS Comment on above: Order Comment: Speci men Type: BLOOD SPECIMENOrdering Facility: [facility] Address: [address] [address] Performed By: #### T SCR ####[facility] BLOOD BANKCLIA [id number] [address] Start: 03-06-2022 End: 03-06-2022 Antibody screen Samra Smith MD Work Phone: Comment on above: Performed By: #### B ILTO, IPB, URICB, TP #### [facility] (DEFAULT) [address] [place] [address] Start: 03-06-2022 Albumin serum plasma /whole blood [...] Jensen Peguero Start: 07-04-2018 Antibody screen Jensen Mccainkins Comment on above: Order Comment: Kahlil s: [...] to PDA, SVG to OM 04/12/2017 @ [facility]; History of coronary artery bypass grafting History of coronary artery bypass graft Rigoberto Gould MD Work Phone: History of coronary artery bypass grafting History of coronary artery bypass graft Alexus Wallace Andrea TOLEDO.THEATRICAL PERFORMER Work Phone: Plan of Treatment Date Care Activity Detail Author Start: 05-19-2028 DTaP/Tdap/Td vaccine (2 - Td or Tdap) DTaP/Tdap/Td vaccine (2 - Td or Tdap) [facility] Work Phone: Start: 05-19-2028 DTaP/Tdap/Td vaccine (2 - Td) DTaP/Tdap/Td vaccine (2 - Td) [facility] Work Phone: Start: 05-19-2028 Urine microalbumin profile [facility] Start: 07-31-2027 PROSTATE CANCER SCREENING DISCUSSION PROSTATE CANCER SCREENING DISCUSSION [facility] Start: 07-31-2027 Prostate specific antigen measurement Prostate Cancer Screening Discussion [facility] Start: 01-16-2026 Complete blood count Hemoglobin/Hematocrit [facility] Start: 01-16-2026 Creatinine measurement Serum Creatinine [facility] Start: 01-08-2026 Complete blood count Hemoglobin/Hematocrit [facility] Start: 01-08-2026 Creatinine measurement Serum Creatinine [facility] Start: 01-06-2026 BP Controlled (<130/80) BP Controlled (<130/80) [facility] Start: 12-29-2025 Annual PCP Team Chronic Disease Visit Annual PCP Team Chronic Disease Visit [facility] Start: 12-29-2025 BP Controlled (<130/80) BP Controlled (<130/80) [facility] Start: 12-05-2025 Annual PCP Team Chronic Disease Visit Annual PCP Team Chronic Disease Visit [facility] Start: 12-05-2025 BP Controlled (<130/80) BP Controlled (<130/80) [facility] Start: 11-14-2025 Complete blood count Hemoglobin/Hematocrit [facility] Start: 10-07-2025 Annual PCP Team Chronic Disease Visit Annual PCP Team Chronic Disease Visit [facility] Start: 10-07-2025 BP Controlled (<130/80) BP Controlled (<130/80) [facility] Start: 09-04-2025 Annual PCP Team Chronic Disease Visit Annual PCP Team Chronic Disease Visit [facility] Start: 09-04-2025 BP Controlled (<130/80) BP Controlled (<130/80) [facility] Start: 06-30-2025 Anxiety Screening Anxiety Screening [facility] Start: 06-30-2025 BP Controlled (<130/80) BP Controlled (<130/80) [facility] Start: 06-30-2025 Covid-19 Vaccine () Covid-19 Vaccine ( season) [facility] Comment on above: Postponed from 04/27/2024 (Declined at t his time) Start: 06-30-2025 Depression Screening Depression Screening [facility] Start: 06-30-2025 Hepatitis A Vaccine (1 of 2 - Risk 2-dose series) Hepatitis A Vaccine (1 of 2 - Risk 2-dose series) [facility] Comment on above: Postponed from 1976 (Declined at t his time) Start: 06-30-2025 RSV Vaccine (1 - Risk 60-74 years 1-dose series) RSV Vaccine (1 - Risk 60-74 years 1-dose series) [facility] Comment on above: Postponed from 2017 (Declined at t his time) Start: 06-30-2025 Shingrix Vaccine (1 of 2) Shingrix Vaccine (1 of 2) [facility] Comment on above: Postponed from 1976 (Declined at t his time) Start: 05-19-2025 Glaucoma screening Dilated Retinal Exam [facility] Start: 05-02-2025 Glaucoma screening Dilated Retinal Exam [facility] Start: 03-23-2025 End: 03-23-2025 Patient encounter procedure 03/23/2025 2:30 PM EDT Office Visit Orthopaedics [address] [address] Nupur De La Rosa MD [address] [address] 6 momth check up Orthopaedics Comment on above: 6 momth check up Start: 02-24-2025 End: 02-24-2025 Patient encounter procedure 02/24/2025 2:00 PM EDT Office Visit Urology [address] [address] Jensen Puckett Jr., MD [address] [place] [address] Puckett Urology Comment on above: cysto per Dr Puckett Start: 01-30-2025 End: 01-30-2025 Patient encounter procedure 01/30/2025 1:45 PM EDT Office Visit Orthopaedics [address] [address] Nupur De La Rosa MD [address] [id number] Follow-up on nonoperative sacral fracture Orthopaedics Comment on above: Follow-up on nonoperative sacral fractur e Start: 01-14-2025 End: 01-14-2025 Patient encounter procedure 01/14/2025 4:20 PM EDT Office Visit [facility] [place] [address] [place], [place] [id number] Rigoberto Gould MD [address] [place] [address] Below follow up visit from e r [facility] [place] Comment on above: Below follow up visit from e r Start: 01-12-2025 End: 01-12-2025 Patient encounter procedure 01/12/2025 11:00 AM EDT Office Visit Family [facility] [place] [address] [place] [address] Rigoberto Gould MD [address] [place], [place] [id number] Hospital F/U [facility] retention [facility] [place] Comment on above: Hospital F/U [facility] retention Start: 01-09-2025 End: 01-09-2025 Patient encounter procedure 01/09/2025 2:45 PM EDT Office Visit Orthopaedics [address] [address] Nupur De La Rosa MD [address] [address] 3 week follow up- R knee Orthopaedics Comment on above: 3 week follow up- R knee Start: 01-07-2025 [facility] Start: 01-06-2025 End: 01-06-2025 Nursing evaluation of patient and report 01/06/2025 1:00 PM EDT Nurse Visit Urology [address] [address] , Nurse Urol Belton [address] [place], [place] [phone] straight cath bladder drain per Dr Puckett Urology Comment on above: straight cath bladder drain per Dr Rogerio delcid Start: 12-30-2024 End: 12-30-2024 Patient encounter procedure 12/30/2024 2:45 PM EDT Office Visit Urology [address] [address] Jensen Puckett Jr., MD [address] [place], [place] [id number] Urinary retention [R33.9] Urology Comment on above: Urinary retention [R33.9] Start: 12-30-2024 End: 03-31-2025 Bacteria identified in Urine by Culture BACTERIAL CULTURE, URINE Microbiology Routine Urinary retention Expected: 12/30/2024, Expires: 03/31/2025 [facility] Work Phone: Comment on above: Expected: 12/30/2024, Expires: Start: 12-29-2024 [facility] Start: 12-29-2024 End: 12-29-2024 Patient encounter procedure 12/29/2024 2:40 PM EDT Office Visit [facility] [place] [address] [place], [place] [phone] Rigoberto Gould MD [address] [place], [place] [phone] 6 month f/u [facility] [place] Comment on above: 6 month f/u Start: 12-26-2024 Evaluation of diagnostic study results [facility] Start: 12-22-2024 [facility] Start: 12-17-2024 End: 12-17-2024 Patient encounter procedure 12/17/2024 2:30 PM EDT Office Visit Orthopaedics [address] [address] Nupur De La Rosa MD [address] [address] 2 mo follow up- R knee Orthopaedics Comment on above: 2 mo follow up- R knee Start: 12-13-2024 End: 12-13-2024 [facility] Start: 12-13-2024 Hemodialysis care [facility] Start: 12-13-2024 Patient discharge [facility] Start: 12-12-2024 [facility] Start: 12-12-2024 End: 12-12-2024 [facility] Start: 12-12-2024 Hemodialysis care [facility] Start: 12-11-2024 Following clinical pathway protocol [facility] Start: 12-11-2024 Application of elastic bandage [facility] Start: 12-11-2024 Assessment of risk of venous thromboembolism [facility] Start: 12-11-2024 Bacteria identified in Sputum by Culture [facility] Start: 12-11-2024 Care regimes management [facility] Start: 12-11-2024 Elevation of affected extremity [facility] Start: 12-11-2024 Incentive spirometry [facility] Start: 12-11-2024 Inhalation therapy procedure [facility] Start: 12-11-2024 Insertion of catheter into peripheral vein [facility] Start: 12-11-2024 Introduction of urinary catheter [facility] Start: 12-11-2024 Measuring intake and output [facility] Start: 12-11-2024 Notification of physician [facility] Start: 12-11-2024 Oxygen therapy [facility] Start: 12-11-2024 Patient education [facility] Start: 12-11-2024 Providing care according to standard [facility] Start: 12-11-2024 Provision of activity privileges [facility] Start: 12-11-2024 Referral to chain carrier [facility] Start: 12-11-2024 Referral to service [facility] Start: 12-11-2024 End: 12-11-2024 [facility] Start: 12-11-2024 Verification routine [facility] Start: 12-11-2024 Admission procedure [facility] Start: 12-11-2024 Hospital admission, emergency, from emergency room, medical nature [facility] Start: 12-11-2024 Patient referral to dietitian [facility] Start: 12-06-2024 BP Controlled (<130/80) BP Controlled (<130/80) [facility] Start: 12-05-2024 End: 03-06-2025 Hemoglobin A1c in Blood HEMOGLOBIN A1C Lab Routine Type 2 diabetes mellitus without complication, with long-term current use of insulin (HCC) Expected: 12/05/2024, Expires: 03/06/2025 [facility] Work Phone: Comment on above: Expected: 12/05/2024, Expires: Start: 12-05-2024 End: 03-06-2025 LIPID PANEL, NONFASTING LIPID PANEL, NONFASTING Lab Routine Arteriosclerotic heart disease (ASHD) Expected: 12/05/2024, Expires: 03/06/2025 [facility] Comment on above: Expected: 12/05/2024, Expires: Start: 12-05-2024 End: 03-06-2025 Thyrotropin [Units/volume] in Serum or Plasma THYROID STIMULATING HORMONE Lab Routine Type 2 diabetes mellitus without complication, with long-term current use of insulin (HCC) Expected: 12/05/2024, Expires: 03/06/2025 [facility] Comment on above: Expected: 12/05/2024, Expires: Start: 12-05-2024 End: 12-05-2024 Patient encounter procedure 12/05/2024 1:20 PM EDT Office Visit [facility] [place] [address] Alexus Mendez, ENTRY LEVEL STAFF ACCOUNTANT.THEATRICAL PERFORMER [address] [facility] [place], [place] [address] Follow up, cough [facility] [place] Comment on above: Follow up, cough Start: 12-03-2024 End: 12-03-2024 Patient encounter procedure 12/03/2024 9:30 AM EDT Appointment Radiology [address] [place] [address] Rt Hip Aspiration Radiology Comment on above: Rt Hip Aspiration Start: 11-26-2024 End: 11-26-2024 Patient encounter procedure 11/26/2024 1:15 PM EDT Appointment Molecular Imaging [address] [place] [id number] M25.551,NM 3 PHASE,PT CALLING,ORDER IN EPIC [facility] Comment on above: M25.551,NM 3 PHASE,PT CALLING,ORDER IN E PIC Start: 11-26-2024 End: 11-26-2024 Patient encounter procedure 11/26/2024 8:45 AM EDT Appointment Molecular Imaging [address] [place] [phone] M25.551,NM 3 PHASE,PT CALLING,ORDER IN EPIC [facility] Comment on above: M25.551,NM 3 PHASE,PT CALLING,ORDER IN E PIC Start: 11-21-2024 End: 02-20-2025 SYNOVIAL FLUID, CRYSTAL ID/PATHOLOGIST INTERPRETATION SYNOVIAL FLUID, CRYSTAL ID/PATHOLOGIST INTERPRETATION Lab Routine Pain of right hip Status post right hip replacement Expected: 11/21/2024, Expires: 02/20/2025 [facility] Comment on above: Expected: 11/21/2024, Expires: Start: 11-14-2024 End: 11-14-2024 Patient encounter procedure Orthopaedics Comment on above: RIGHT HIP R femur Start: 11-13-2024 Glaucoma screening Dilated Retinal Exam [facility] Start: 10-17-2024 End: 10-17-2024 Patient encounter procedure 10/17/2024 4:15 PM EST Office Visit Orthopaedics [address] [address] Nupur De La Rosa MD [address] [address] Contacted patient due to provider being absent left voicemail- Orthopaedics Comment on above: Contacted patient due to provider being absent left voicemail- Start: 10-08-2024 End: 10-08-2024 Patient encounter procedure 10/08/2024 9:30 AM EST Office Visit Orthopaedics [address] [address] Nupur De La Rosa MD [address] [phone] Follow up (ok per Dr De La Rosa) Orthopaedics Comment on above: Follow up (ok per Dr De La Rosa) Start: 10-07-2024 End: 10-07-2024 Patient encounter procedure 10/07/2024 2:40 PM EST Office Visit [facility] [place] [address] [place] [address] Alexus Mendez APRN.THEATRICAL PERFORMER [address] [place], [place] [phone] dry skin x 3 weeks, location arms, shoulder, stomach and back [facility] [place] Comment on above: dry skin x 3 weeks, location arms, shoul rip, stomach and back Start: 09-26-2024 End: 09-26-2024 Patient encounter procedure Orthopaedics Comment on above: right knee pain right hip/knee pain Start: 09-05-2024 End: 09-05-2024 Patient encounter procedure 09/05/2024 10:30 AM EST Office Visit Orthopaedics [address] [address] Maco Rivera PA-C [address] [place], [place] [phone] right knee pain Orthopaedics Comment on above: right knee pain Start: 09-04-2024 End: 09-04-2024 Patient encounter procedure 09/04/2024 8:00 AM EST Office Visit [facility] [place] [address] [facility] [place] [id number] Alxeus Mendez APRN.THEATRICAL PERFORMER [address] [facility] [place] [id number] Has had the flu and unable to go to dialysis this week (,sun,sun ) [facility] [place] Comment on above: Has had the flu and unable to go to dial ysis this week (,sun,sun ) Start: 09-01-2024 End: 09-01-2024 Patient encounter procedure Radiology Comment on above: right knee and hip pain right knee pain Start: 08-27-2024 Diabetic foot examination Diabetic Foot Exam [facility] Comment on above: Postponed from 03/13/2023 (Insurance Cov erage) Start: 08-17-2024 Glaucoma screening Dilated Retinal Exam [facility] Start: 06-30-2024 End: 09-29-2024 CREATININE BLD CREATININE BLD Lab Routine Chronic kidney disease (CKD), stage V (HCC) Expected: 06/30/2024, Expires: 09/29/2024 [facility] Comment on above: Expected: 06/30/2024, Expires: Start: 06-30-2024 End: 09-29-2024 Hematocrit [Volume Fraction] of Blood HEMATOCRIT Lab Routine Chronic kidney disease (CKD), stage V (HCC) Expected: 06/30/2024, Expires: 09/29/2024 [facility] Comment on above: Expected: 06/30/2024, Expires: Start: 06-30-2024 End: 09-29-2024 Hemoglobin [Mass/volume] in Blood HEMOGLOBIN Lab Routine Chronic kidney disease (CKD), stage V (HCC) Expected: 06/30/2024, Expires: 09/29/2024 [facility] Comment on above: Expected: 06/30/2024, Expires: Start: 06-30-2024 End: 09-29-2024 Hemoglobin A1c in Blood HEMOGLOBIN A1C Lab Routine Screening for diabetic retinopathy Expected: 06/30/2024, Expires: 09/29/2024 [facility] Work Phone: Comment on above: Expected: 06/30/2024, Expires: Start: 06-30-2024 End: 09-29-2024 LIPID PANEL, NONFASTING LIPID PANEL, NONFASTING Lab Routine Screening for diabetic retinopathy Arteriosclerotic heart disease (ASHD) Expected: 06/30/2024, Expires: 09/29/2024 [facility] Comment on above: Expected: 06/30/2024, Expires: Start: 06-30-2024 Screening for malignant neoplasm of colon Colorectal Cancer Screening [facility] Comment on above: Postponed from 2002 (Declined at t his time) Start: 06-30-2024 End: 06-30-2024 Patient encounter procedure 06/30/2024 12:40 PM EST Office Visit [facility] [place] [address] [place] [address] Alexus Mendez, ENTRY LEVEL STAFF ACCOUNTANT.THEATRICAL PERFORMER [address] [place] [address] 3 month f/u [facility] [place] Comment on above: 3 month f/u Start: 06-25-2024 End: 06-25-2024 Patient encounter procedure 06/25/2024 11:30 AM EDT Office Visit Orthopaedics [address] [address] Nupur De La Rosa MD [address] [address] 1 m f/u, right ankle Orthopaedics Comment on above: 1 m f/u, right ankle Start: 06-07-2024 Annual PCP Team Chronic Disease Visit Annual PCP Team Chronic Disease Visit [facility] Start: 05-19-2024 End: 05-19-2024 Patient encounter procedure 05/19/2024 2:00 PM EDT Office Visit Orthopaedics [address] [address] Nupur De La Rosa MD [address] [phone] 2 week follow up Orthopaedics Comment on above: 2 week follow up Start: 05-07-2024 End: 05-07-2024 Patient encounter procedure 05/07/2024 1:00 PM EDT Office Visit Orthopaedics [address] [address] Nupur De La Rosa MD [address] [address] 1 month follow up for right knee Orthopaedics Comment on above: 1 month follow up for right knee Start: 04-27-2024 Covid-19 Vaccine () Covid-19 Vaccine () [facility] Start: 04-27-2024 Covid-19 Vaccine () Covid-19 Vaccine () [facility] Start: 04-27-2024 Influenza vaccination Influenza Vaccine (#1) [facility] Start: 04-23-2024 Creatinine measurement Serum Creatinine [facility] Start: 04-23-2024 Serum Creatinine Serum Creatinine [facility] Start: 04-02-2024 End: 04-02-2024 Patient encounter procedure Orthopaedics Comment on above: Right Knee Fracture - 4 Week Follow Up knee pain Start: 03-03-2024 End: 03-03-2024 Patient encounter procedure Orthopaedics Comment on above: 3 week follow up, right knee fx knee pain Start: 02-13-2024 End: 02-13-2024 Patient encounter procedure 02/13/2024 2:15 PM EDT Office Visit Orthopaedics [address] [address] Nupur De La Rosa MD [address] [address] right tibeal platue fracture was in ER Sonya 02/01 Orthopaedics Comment on above: right tibeal platue fracture was in ER V dino 02/01 Start: 01-14-2024 End: 01-14-2024 Nursing evaluation of patient and report 01/14/2024 2:15 PM EDT Nurse Visit General Surgery [address] [place] [address] Wstr, Nurse Gens [facility] [address] [place] [address] 3 wk suture removal General Surgery Comment on above: 3 wk suture removal Start: 01-05-2024 Complete blood count Hemoglobin/Hematocrit [facility] Start: 01-05-2024 HEMOGLOBIN/HEMATOCRIT HEMOGLOBIN/HEMATOCRIT [facility] Start: 01-05-2024 SERUM CREATININE SERUM CREATININE [facility] Start: 10-31-2023 ANNUAL PCP TEAM CHRONIC DISEASE VISIT ANNUAL PCP TEAM CHRONIC DISEASE VISIT [facility] Start: 10-31-2023 BP CONTROLLED (<130/80) BP CONTROLLED (<130/80) [facility] Start: 10-31-2023 Hepatitis B surface antibody level LDL CHOLESTEROL [facility] Start: 08-27-2023 Advance Directive Discussion Advance Directive Discussion [facility] Start: 08-27-2023 Behavioral Health Screening Behavioral Health Screening [facility] Start: 08-27-2023 Depression Assessment Depression Assessment [facility] Start: 07-31-2023 ANNUAL PCP TEAM CHRONIC DISEASE VISIT ANNUAL PCP TEAM CHRONIC DISEASE VISIT [facility] Start: 07-06-2023 Hepatitis C antibody, confirmatory test DILATED RETINAL EXAM [facility] Start: 06-05-2023 ANNUAL PCP TEAM CHRONIC DISEASE VISIT ANNUAL PCP TEAM CHRONIC DISEASE VISIT [facility] Start: 06-05-2023 HEMOGLOBIN/HEMATOCRIT HEMOGLOBIN/HEMATOCRIT [facility] Start: 05-08-2023 HEMOGLOBIN/HEMATOCRIT HEMOGLOBIN/HEMATOCRIT [facility] Start: 05-06-2023 SERUM CREATININE SERUM CREATININE [facility] Start: 05-02-2023 Hemoglobin A1c measurement HbA1C [facility] Start: 05-02-2023 Hemoglobin A1c/Hemoglobin.total in Blood HBA1C [facility] Start: 04-27-2023 Covid-19 Vaccine () Covid-19 Vaccine () [facility] Start: 04-27-2023 Covid-19 Vaccine () Covid-19 Vaccine () [facility] Start: 04-27-2023 Influenza vaccination Influenza Vaccine (#1) [facility] Start: 04-10-2023 Hepatitis B surface antibody level LDL CHOLESTEROL [facility] Start: 03-13-2023 3 comp foot exam completed DIABETIC FOOT EXAM [facility] Start: 03-13-2023 Diabetic foot examination Diabetic Foot Exam [facility] Start: 12-02-2022 ANNUAL PCP TEAM CHRONIC DISEASE VISIT ANNUAL PCP TEAM CHRONIC DISEASE VISIT [facility] Start: 12-02-2022 BP CONTROLLED (<130/80) BP CONTROLLED (<130/80) [facility] Start: 11-25-2022 3 comp foot exam completed DIABETIC FOOT EXAM [facility] Start: 2022 ADVANCE DIRECTIVE DISCUSSION ADVANCE DIRECTIVE DISCUSSION [facility] Start: 10-30-2022 End: 12-30-2022 Hemoglobin A1c in Blood [facility] Work Phone: Comment on above: Expected: 10/30/2022, Expires: 3 Start: 10-30-2022 End: 12-30-2022 LIPID PANEL, NONFASTING [facility] Work Phone: Comment on above: Expected: 10/30/2022, Expires: 3 Start: 10-11-2022 Hemoglobin A1c/Hemoglobin.total in Blood HBA1C [facility] Start: 06-05-2022 End: 08-05-2022 CBC W Auto Differential panel - Blood [facility] Work Phone: Comment on above: Expected: 06/05/2022, Expires: 2 Start: 04-27-2022 Influenza vaccination [facility] Start: 03-30-2022 End: 05-30-2022 ALBUMIN/CREAT RATIO RND UR ALBUMIN/CREAT RATIO RND UR Lab Routine Hypertension, essential Type 2 diabetes mellitus without complication, with long-term current use of insulin (HCC) Expected: 03/30/2022, Expires: 05/30/2022 [facility] Work Phone: Comment on above: Expected: 03/30/2022, Expires: 2 Start: 03-30-2022 End: 03-30-2023 CBC W Auto Differential panel - Blood CBC + DIFF Lab Routine Hypertension, essential Type 2 diabetes mellitus without complication, with long-term current use of insulin (HCC) Expected: 03/30/2022, Expires: 03/30/2023 [facility] Work Phone: Comment on above: Expected: 03/30/2022, Expires: 3 Start: 03-30-2022 End: 03-30-2023 Comprehensive metabolic 2000 panel - Serum or Plasma COMP METABOLIC PANEL Lab Routine Hypertension, essential Type 2 diabetes mellitus without complication, with long-term current use of insulin (HCC) Expected: 03/30/2022, Expires: 03/30/2023 [facility] Work Phone: Comment on above: Expected: 03/30/2022, Expires: 3 Start: 03-30-2022 End: 05-30-2022 Hemoglobin A1c in Blood HGB A1C Lab Routine Hypertension, essential Type 2 diabetes mellitus without complication, with long-term current use of insulin (HCC) Expected: 03/30/2022, Expires: 05/30/2022 [facility] Work Phone: Comment on above: Expected: 03/30/2022, Expires: 2 Start: 03-30-2022 End: 03-30-2023 Lipid 1996 panel - Serum or Plasma LIPID PANEL BASIC Lab Routine Hypertension, essential Type 2 diabetes mellitus without complication, with long-term current use of insulin (HCC) Expected: 03/30/2022, Expires: 03/30/2023 [facility] Work Phone: Comment on above: Expected: 03/30/2022, Expires: 3 Start: 03-01-2022 PROSTATE CANCER SCREENING DISCUSSION PROSTATE CANCER SCREENING DISCUSSION [facility] Start: 02-21-2022 HEMOGLOBIN/HEMATOCRIT HEMOGLOBIN/HEMATOCRIT [facility] Start: 12-02-2021 End: 02-01-2022 Hemoglobin A1c/Hemoglobin.total in Blood HGB A1C Lab Routine 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 due to underlying condition, unspecified proliferative retinopathy type (HCC) Expected: 12/02/2021, Expires: 02/01/2022 [facility] Work Phone: Comment on above: Expected: 12/02/2021, Expires: 2 Start: 12-02-2021 End: 02-01-2022 LIPID PANEL BASIC LIPID PANEL BASIC Lab Routine Arteriosclerotic heart disease (ASHD) Expected: 12/02/2021, Expires: 02/01/2022 [facility] Work Phone: Comment on above: Expected: 12/02/2021, Expires: 2 Start: 11-14-2021 End: 01-14-2022 ALBUMIN/CREAT RATIO RND UR ALBUMIN/CREAT RATIO RND UR Lab Routine Hypertension, essential Chronic kidney disease, stage IV (severe) (HCC) Type 2 diabetes mellitus without complication, with long-term current use of insulin (HCC) Expected: 11/14/2021, Expires: 01/14/2022 [facility] Work Phone: Comment on above: Expected: 11/14/2021, Expires: 2 Start: 11-14-2021 End: 01-14-2022 CBC W Auto Differential panel - Blood CBC + DIFF Lab Routine Hypertension, essential Chronic kidney disease, stage IV (severe) (HCC) Type 2 diabetes mellitus without complication, with long-term current use of insulin (HCC) Expected: 11/14/2021, Expires: 01/14/2022 [facility] Work Phone: Comment on above: Expected: 11/14/2021, Expires: 2 Start: 11-14-2021 End: 01-14-2022 Comprehensive metabolic 2000 panel - Serum or Plasma COMP METABOLIC PANEL Lab Routine Hypertension, essential Chronic kidney disease, stage IV (severe) (HCC) Type 2 diabetes mellitus without complication, with long-term current use of insulin (HCC) Expected: 11/14/2021, Expires: 01/14/2022 [facility] Work Phone: Comment on above: Expected: 11/14/2021, Expires: 2 Start: 11-14-2021 End: 01-14-2022 Hemoglobin A1c/Hemoglobin.total in Blood HGB A1C Lab Routine Hypertension, essential Chronic kidney disease, stage IV (severe) (HCC) Type 2 diabetes mellitus without complication, with long-term current use of insulin (HCC) Expected: 11/14/2021, Expires: 01/14/2022 [facility] Work Phone: Comment on above: Expected: 11/14/2021, Expires: 2 Start: 11-14-2021 End: 01-14-2022 LIPID PANEL BASIC LIPID PANEL BASIC Lab Routine Hypertension, essential Chronic kidney disease, stage IV (severe) (HCC) Type 2 diabetes mellitus without complication, with long-term current use of insulin (HCC) Expected: 11/14/2021, Expires: 01/14/2022 [facility] Work Phone: Comment on above: Expected: 11/14/2021, Expires: 2 Start: 2021 Potassium monitoring Potassium monitoring [employer] Work Phone: Start: 11-03-2021 Creatinine measurement Creatinine monitoring [employer] Work Phone: Start: 11-03-2021 Potassium monitoring Potassium monitoring [employer] Work Phone: Start: 10-11-2021 ANNUAL PCP TEAM CHRONIC DISEASE VISIT ANNUAL PCP TEAM CHRONIC DISEASE VISIT [facility] Start: 10-08-2021 Adult depression screening assessment DEPRESSION SCREENING [facility] Start: 09-30-2021 COVID-19 VACCINE (4 - Booster for Moderna series) COVID-19 VACCINE (4 - Booster for Moderna series) [facility] Start: 08-27-2021 DEPRESSION ASSESSMENT DEPRESSION ASSESSMENT [facility] Start: 08-25-2021 COVID-19 VACCINE (4 - Booster for Moderna series) COVID-19 VACCINE (4 - Booster for Moderna series) [facility] Start: 08-25-2021 Covid-19 Vaccine (4 - Moderna risk series) Covid-19 Vaccine (4 - Moderna risk series) [facility] Start: 07-01-2021 Hepatitis C antibody, confirmatory test DILATED RETINAL EXAM [facility] Start: 06-01-2021 Hepatitis B surface antibody level LDL CHOLESTEROL [facility] Start: 06-01-2021 SERUM CREATININE SERUM CREATININE [facility] Start: 05-27-2021 3 comp foot exam completed DIABETIC FOOT EXAM [facility] Start: 04-27-2021 Influenza vaccination INFLUENZA (#1) [facility] Start: 03-14-2021 End: 03-14-2021 Patient encounter procedure 03/14/2021 Office Visit Vascular Surgery Nick Mancilla MD [address] [place] [address] [phone] [facility] Start: 02-25-2021 End: 02-25-2021 Patient encounter procedure 02/25/2021 Appointment General Surgery Nick Mancilla MD [address] [place] [address] [phone] [facility] General Surgery Start: 02-21-2021 Subsequent hospital visit by physician 02/21/2021 Hospital Encounter Pre-Admission Testing Nick Mancilla MD [address] [place] [address] [facility] Pre-Admit Testing Start: 12-30-2020 COVID-19 VACCINE (3 - Moderna risk 4-dose series) COVID-19 VACCINE (3 - Moderna risk 4-dose series) [facility] Start: 12-02-2020 COVID-19 Vaccine (2 - Moderna 2-dose series) COVID-19 Vaccine (2 - Moderna 2-dose series) [facility] Work Phone: Start: 11-30-2020 Hemoglobin A1c/Hemoglobin.total in Blood HBA1C [facility] Start: 11-17-2020 End: 11-17-2020 Office Visit 11/17/2020 Office Visit Vascular Surgery Candice Tellez PA-C [address] [place], [place] [id number] [facility] Start: 2020 End: 2020 Appointment 2020 Appointment General Surgery Nick Mancilla MD [address] [place], [place] [id number] [facility] General Surgery Start: 02-22-2019 COLORECTAL CANCER SCREENING COLORECTAL CANCER SCREENING [facility] Start: 02-22-2019 FECAL OCCULT BLOOD FECAL OCCULT BLOOD [facility] Start: 02-22-2019 Screening for malignant neoplasm of colon [facility] Start: 2017 RSV Vaccine (1 - 1-dose 60+ series) RSV Vaccine (1 - 1-dose 60+ series) [facility] Start: 2017 RSV Vaccine (1 - Risk 60-74 years 1-dose series) RSV Vaccine (1 - Risk 60-74 years 1-dose series) [facility] Start: 08-17-2017 End: 08-17-2017 Appointment Appointment [facility] Work Phone: Start: 07-16-2017 End: 07-11-2017 *BMP *BMP [facility] Work Phone: Start: 07-11-2017 End: 04-20-2017 Echocardiography Echocardiogram (complete) [facility] Work Phone: Start: 07-04-2017 End: 07-05-2017 *BMP *BMP [facility] Work Phone: Start: 05-25-2017 End: 05-28-2017 Cardiac Rehab [facility] Work Phone: Start: 05-25-2017 End: 05-25-2017 Cardiovascular stress test using treadmill Treadmill stress test (no imaging) [facility] Work Phone: Start: 05-25-2017 End: 05-25-2017 Echocardiography Echocardiogram (complete) [facility] Work Phone: Start: 05-25-2017 End: 05-25-2017 Follow Up Appt 3 months Follow Up Appt 3 months [facility] Work Phone: Start: 05-25-2017 End: 05-25-2017 Follow Up Appt Other Follow Up Appt Other [facility] Work Phone: Start: 05-25-2017 End: 05-25-2017 MMM MMM [facility] Work Phone: Start: 11-06-2007 Prostate specific antigen measurement PROSTATE CANCER SCREENING DISCUSSION [facility] Start: 11-06-2007 Screening for malignant neoplasm of colon Colon cancer screen colonoscopy [facility] Work Phone: Start: 11-06-2007 Shingles Vaccine (1 of 2) Shingles Vaccine (1 of 2) [facility] Work Phone: Start: 11-06-2007 SHINGRIX VACCINE (1 of 2) SHINGRIX VACCINE (1 of 2) [facility] Start: 11-06-2007 Zoster vaccine hzv live for subcutaneous use ZOSTER (SHINGLES) VACCINE (1 of 2) [facility] Start: 2002 COLOGUARD (FIT-DNA) COLOGUARD (FIT-DNA) [facility] Start: 2002 Colonoscopy [facility] Start: [address] COLONOGRAPHY [facility] Start: 2002 Screening for malignant neoplasm of colon [facility] Start: 2002 SIGMOIDOSCOPY SIGMOIDOSCOPY [facility] Start: 1997 Fasting lipid profile LIPID SCREENING [facility] Start: 1976 ADULT PREVNAR-13 ADULT PREVNAR-13 [facility] Start: 1976 Hepatitis A Vaccine (1 of 2 - Risk 2-dose series) Hepatitis A Vaccine (1 of 2 - Risk 2-dose series) [facility] Start: 1976 HEPATITIS B (1 of 3 - Risk 3-dose series) HEPATITIS B (1 of 3 - Risk 3-dose series) [facility] Start: 1976 SHINGRIX VACCINE (1 of 2) SHINGRIX VACCINE (1 of 2) [facility] Start: 1976 Third diphtheria, tetanus and acellular pertussis (DTaP) vaccination TDAP (ADULT) [facility] Start: 1976 TWO PNEUMOVAX 5 YEARS APART PRIOR TO AGE 65 (#1) TWO PNEUMOVAX 5 YEARS APART PRIOR TO AGE 65 (#1) [facility] Start: 11-06-1975 Anxiety Screening Anxiety Screening [facility] Start: 11-06-1975 BP CONTROLLED (<130/80) BP CONTROLLED (<130/80) [facility] Start: 11-06-1975 Depression Screening Depression Screening [facility] Start: 11-06-1975 HIV SCREENING HIV SCREENING [facility] Start: 11-06-1975 Tetanus vaccination TETANUS [facility] Start: 1973 COVID-19 Vaccine (1 of 2) [...] (1 - PCV) PNEUMOCOCCAL (1 - PCV) [facility] Start: 11-06-1963 Pneumococcal 0-64 years [...] (1 of 2 - Risk 2-dose series) [facility] Start: 05-08-1958 COVID-19 VACCINE (#1) COVID-19 VACCINE (#1) [facility] Start: 1957 Hepatitis C antibody, confirmatory test HEPATITIS C VIRUS SCREENING [facility] Start: 1957 Hepatitis C screening Hepatitis C screen [facility] Work Phone: Bacteria identified in Body fluid by Culture BACTERIAL CULTURE AND GRAM STAIN, STERILE BODY FLUID Microbiology Routine Pain of right hip Status post right hip replacement Ordered: 11/21/2024 [facility] Comment on above: Ordered: 11/21/2024 End: 2020 Blood glucose - POCT Blood glucose - POCT Point of Care Testing Routine One Time for 1 Occurrences starting 2020 until 2020 [facility] Work Phone: Comment on above: One Time for 1 Occurrences starting 10/25 until 2020 C-PEPTIDE C-PEPTIDE Lab Ro utine Pre-transplant evaluation for kidney transplant 03/06/2022 1:13 PM EDT [facility] CDIFF PCR W/RFLX EIA IF POSITIVE CDIFF PCR W/RFLX EIA IF POSITIVE Lab Routine Diarrhea of infectious origin Ordered: 06/29/2022 [facility] Work Phone: Comment on above: Ordered: 06/29/2022 CMV IGG AB CMV IGG AB Lab R outine Pre-transplant evaluation for kidney transplant 03/06/2022 1:13 PM [facility] COLOGUARD Lab Ro utine Screening for colon cancer Ordered: 10/30/2022 [facility] Work Phone: Comment on above: Ordered: 10/30/2022 EBV VCA IGG AB EBV VCA IGG AB L ab Routine Pre-transplant evaluation for kidney transplant 03/06/2022 1:13 PM EDT [facility] EKG 12 Lead EKG 12 Lead ECG Routine 11/03/2020 1:27 PM EST [employer] Work Phone: End: 12-21-2025 Guidance for arthrocentesis of Major joint IMAGING GUIDED HIP ASPIRATION RIGHT Radiology Routine Pain of right hip Status post right hip replacement 1 Occurrences starting 11/21/2024 until 12/21/2025 [facility] Comment on above: 1 Occurrences starting 11/21/2024 until 12/21/2025 HLA TYPING (SOLID ORGAN) HLA TYP ING (SOLID ORGAN) Lab Routine Pre-transplant evaluation for kidney transplant 03/06/2022 1:13 PM EDT [facility] HSV 1 AND 2 IGG ANTIBODY HSV 1 A ND 2 IGG ANTIBODY Lab Routine Pre-transplant evaluation for kidney transplant 03/06/2022 1:13 PM EDT [facility] HSV IGM ANTIBODY HSV IGM ANTIBOD Y Lab Routine Pre-transplant evaluation for kidney transplant 03/06/2022 1:13 PM EDT [facility] NM Bone 3 Phase Views NM BONE 3 PHASE Radiology Routine Pain of right hip 11/26/2024 2:14 PM EDT [facility] Work Phone: Oxygen therapy [Mini mum Data Set] Initiate Oxygen Therapy Protocol Respiratory Care Routine Daily until discontinued starting 2020 [facility] Work Phone: Comment on above: Daily until discontinued starting 2020 Patient Education [facility] Work Phone: Patient referral [facility] Work Phone: Phase I & II - meter ed glucose Phase I & II - metered glucose Point of Care Testing Routine As Needed until discontinued starting 2020 [facility] Work Phone: Comment on above: As Needed until discontinued starting PRA CLASS (PRE-TRANSPLANT) PRA CLASS (PRE-TRANSPLANT) Lab Routine Pre-transplant evaluation for kidney transplant 03/06/2022 1:13 PM EDT [facility] Respiratory pathogen s DNA and RNA panel - Respiratory specimen by AMADOU with probe detection [facility] Spirometry panel Incentive barber metry Respiratory Care Routine Q1H PRN until discontinued starting 2020 [facility] Work Phone: Comment on above: Q1H PRN until discontinued starting 10/25 SURGICAL PATHOLOGY SURGICAL PATH OLOGY Lab Routine Skin lesion of right lower extremity 12/28/2023 3:09 PM EDT [facility] Work Phone: SYNOVIAL FLUID, ROUTINE SYNOVIAL FLUID, ROUTINE Lab Routine Pain of right hip Status post right hip replacement Ordered: 11/21/2024 [facility] Work Phone: Comment on above: Ordered: 11/21/2024 VARICELLA IGG AB (IM M STATUS) VARICELLA IGG AB (IMM STATUS) Lab Routine Pre-transplant evaluation for kidney transplant 03/06/[facility]22 1[facility] - right AP and Lateral and oblique XR ANKLE GENERAL 3V AP/LAT/OBL RIGHT Radiology Routine Acute right ankle pain 05/07/2024 1:33 PM EDT [facility] Work Phone: XR Ankle - right AP and Lateral and oblique XR ANKLE GENERAL 3V AP/LAT/OBL RIGHT Radiology Routine Pain 06/25/2024 11:26 AM EDT [facility] Work Phone: End: 09-27-2025 XR Femur - right AP and Lateral XR FEMUR GENERAL 2V AP/LAT RIGHT Radiology Routine Acute pain of right knee Right thigh pain 1 Occurrences starting 08/28/2024 until 09/27/2025 [facility] Comment on above: 1 Occurrences starting 08/28/2024 until 09/27/2025 XR Femur - right AP and Lateral XR FEMUR GENERAL 2V AP/LAT RIGHT Radiology Routine Acute pain of right knee Right thigh pain 09/22/2024 1:56 PM EST [facility] End: 12-12-2025 XR Femur - right AP and Lateral XR FEMUR GENERAL 2V AP/LAT RIGHT Radiology Routine Status post total replacement of right hip 1 Occurrences starting 11/12/2024 until 12/12/2025 [facility] Work Phone: Comment on above: 1 Occurrences starting 11/12/2024 until 12/12/2025 XR Femur - right AP and Lateral XR FEMUR GENERAL 2V AP/LAT RIGHT Radiology Routine Status post total replacement of right hip 11/14/2024 9:46 AM EDT [facility] Work Phone: End: 09-27-2025 XR Pelvis AP XR PELVIS 1V AP Radiology Routine Pain in right hip 1 Occurrences starting 08/28/2024 until 09/27/2025 [facility] Work Phone: Comment on above: 1 Occurrences starting 08/28/2024 until 09/27/2025 XR Pelvis AP XR PELVIS 1V AP Radiology Routine Pain in right hip 09/22/2024 1:56 PM EST [facility] Work Phone: XR Tibia and Fibula - right AP and Lateral XR TIBIA FIBULA 2V AP/LAT RIGHT Radiology Routine 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 11/08/2023 3:15 PM EDT [facility] Work Phone: [facility] Immunizations Immunization Date Immunization Notes Care Provider Sejal melgoza 06-07-2024 Seasonal, trivalent, recombinant, injectable influenza vaccine, preservative free Alexus Suppan ENTRY LEVEL STAFF ACCOUNTANT.THEATRICAL PERFORMER Work Phone: [facility] 06-19-2023 influenza virus vaccine, unspecified formulation Nupur De La Rosa MD Work Phone: [facility] 02-06-2023 Hepatitis B vaccine (recombinant), CpG adjuvanted Alexus Suppan ENTRY LEVEL STAFF ACCOUNTANT.THEATRICAL PERFORMER Work Phone: [facility] 12-05-2022 Hepatitis B vaccine (recombinant), CpG adjuvanted Alexus Suppan ENTRY LEVEL STAFF ACCOUNTANT.THEATRICAL PERFORMER Work Phone: [facility] 11-08-2022 Hepatitis B vaccine (recombinant), CpG adjuvanted Alexus Suppan ENTRY LEVEL STAFF ACCOUNTANT.THEATRICAL PERFORMER Work Phone: [facility] 10-10-2022 Hepatitis B vaccine (recombinant), CpG adjuvanted Alexus Suppan ENTRY LEVEL STAFF ACCOUNTANT.THEATRICAL PERFORMER Work Phone: [facility] 07-31-2022 pneumococcal (PCV20) vaccine, 20 valent (PREVNAR 20) Rigoberto Gould MD Work Phone: [facility] 07-31-2022 pneumococcal Conjugate, unspecified formulation Rigoberto Gould MD Work Phone: [facility] Work Phone: 07-15-2022 COVID-19 vaccine, ag e 12+ yr, bivalent (PFIZER-BIONTECH) Alexus Suppan ENTRY LEVEL STAFF ACCOUNTANT.THEATRICAL PERFORMER Work Phone: [facility] 06-17-2022 influenza, injectabl e, quadrivalent, preservative free Rigoberto Gould MD Work Phone: [facility] 06-17-2022 influenza virus vaccine, unspecified formulation Robinson Henao MD Work Phone: [facility] 06-30-2021 Covid (Moderna) Dr. Rigoberto Gould MD Work Phone: [facility] 05-24-2021 influenza, injectabl e, quadrivalent, preservative free Rigoberto Gould MD Work Phone: [facility] 05-24-2021 influenza virus vaccine, unspecified formulation Samra Smith MD Work Phone: [facility] 05-10-2021 Hepatitis B vaccine (recombinant), CpG adjuvanted Rigoberto Gould MD Work Phone: [facility] 03-08-2021 Hepatitis B vaccine (recombinant), CpG adjuvanted Rigoberto Gould MD Work Phone: [facility] 02-08-2021 Hepatitis B vaccine (recombinant), CpG adjuvanted Rigoberto Gould MD Work Phone: [facility] 01-06-2021 Hepatitis B vaccine (recombinant), CpG adjuvanted Rigoberto Gould MD Work Phone: [facility] 12-02-2020 Covid (Moderna) Dr. Rigoberto Gould MD Work Phone: [facility] 11-04-2020 Covid (Moderna) Dr. Rigoberto Gould MD Work Phone: [facility] 10-01-2020 influenza, injectabl e, quadrivalent, contains preservative Nick Mancilla [facility] Work Phone: 10-01-2020 influenza, injectabl e, quadrivalent, preservative free Dr. Rigoberto Gould MD Work Phone: [facility] 10-01-2020 influenza, seasonal, injectable, preservative free Rigoberto Gould MD Work Phone: [facility] Work Phone: 08-29-2018 influenza, seasonal, injectable, preservative free Rigoberto Gould MD Work Phone: [facility] 07-11-2018 influenza nasal, unspecified formulation Rigoberto Gould MD Work Phone: [facility] Work Phone: 07-11-2018 influenza virus vaccine, unspecified formulation Nick ARROYO Work Phone: 07-11-2018 influenza, injectabl e, quadrivalent, contains preservative Nick Mancilla [facility] Work Phone: 07-11-2018 influenza, injectabl e, quadrivalent, preservative free Dr. Rigoberto Gould MD Work Phone: [facility] 05-19-2018 tetanus toxoid, reduced diphtheria toxoid, and acellular pertussis vaccine, adsorbed Nick Mancilla [facility] Work Phone: 05-30-2016 influenza nasal, unspecified formulation Rigoberto Gould MD Work Phone: [facility] Work Phone: 05-30-2016 influenza virus vaccine, unspecified formulation Nick ARROYO Work Phone: 05-30-2016 influenza, injectabl e, quadrivalent, contains preservative Rigoberto Gould MD Work Phone: [facility] 06-19-2015 influenza nasal, unspecified formulation Rigoberto Gould MD Work Phone: [facility] 06-19-2015 influenza virus vaccine, unspecified formulation Nick ARROYO Work Phone: 06-19-2015 influenza, injectabl e, quadrivalent, contains preservative Nick Mancilla [facility] Work Phone: 06-19-2015 influenza, injectabl e, quadrivalent, preservative free Dr. Rigoberto Gould MD Work Phone: [facility] 06-19-2015 influenza, seasonal, injectable, preservative free Rigoberto Gould MD Work Phone: [facility] Work Phone: Payers Date Payer Category Payer Medicare (Managed Care) ELISSA BANDA ADVANTAGE HMO [id number] 2024 Unknown ANTHEM BLUE CROS S AND BLUE SHIELD ANTHEM MEDICARE ADVANTAGE HMO [id number] 2024-Present [phone] [address] [place] [address] HMO [id number] 2024 Unknown [id number] 2021 Medicaid [id number]. [id number] 2021 Medicare [id number]. [id number] 2021 Medicare [id number]. [id number]. [id number] 2021 Medicare [id number] 2020 Medicaid [id number]. [id number] 2017 Self-pay 2017 Unknown [id number] 2017 Unknown [id number] 2010 Unknown [id number] 1957 Unknown [id number] 2.16.840.1.957018.3.579.2. 594 1957 Unknown [id number] 2.16.840.1.119703.3.579.2. 627 1957 Unknown [id number] 2.16.840.1.237123.3.579.2. 627 1920 Unknown [id number] 2.16.840.1.518243.3.579.2. 627 Unknown [id number] 2.16.840.1.655757.3.579.2. 273 Unknown [id number] 2.16.840.1.624635.3.579.2. 273 Unknown [id number] 2.16.840.1.511137.3.579.2. 273 Unknown [id number] 2.16.840.1.760495.3.579.2. 273 Unknown [id number] 2.16.840.1.857566.3.579.2. 273 Unknown [id number] 2.16.840.1.175593.3.579.2. 273 Unknown [id number] 2.16.840.1.524161.3.579.2. 273 Unknown [id number] 2.16.840.1.556074.3.579.2. 273 Unknown [id number] 2.16.840.1.796364.3.579.2. 273 Unknown [id number] 2.16.840.1.970029.3.579.2. 273 Unknown [id number] 2.16.840.1.472886.3.579.2. 273 Unknown [id number] 2.16.840.1.709569.3.579.2. 462 Unknown [id number] 2.16.840.1.789333.3.579.2. 462 Unknown [id number] 2.16.840.1.707484.3.579.2. 462 Unknown [id number] 2.16.840.1.885230.3.579.2. 462 Unknown [id number] 2.16.840.1.073034.3.579.2. 462 Unknown [id number] 2.16.840.1.634812.3.579.2. 462 Unknown [id number] 2.16.840.1.278403.3.579.2. 462 Unknown [id number] 2.16.840.1.747312.3.579.2. 462 Unknown [id number] 2.16.840.1.171602.3.579.2. 462 Unknown [id number] 2.16.840.1.074350.3.579.2. 462 Unknown [id number] 2.16.840.1.753433.3.579.2. 462 Unknown [id number] 2.16.840.1.042851.3.579.2. 462 Unknown [id number] 2.16.840.1.469740.3.579.2. 462 Unknown [id number] 2.16.840.1.462904.3.579.2. 462 Unknown [id number] 2.16.840.1.195923.3.579.2. 462 Unknown [id number] 2.16.840.1.915849.3.579.2. 462 Unknown [id number] 2.16.840.1.156448.3.579.2. 462 Unknown [id number] 2.16.840.1.838593.3.579.2. 462 Social History Date Type Detail Facility Start: 11-03-2020 End: 06-05-2022 Tobacco smoking status [facility] Never smoker [facility] Work Phone: Start: 11-03-2020 End: 06-05-2022 Tobacco use and exposure Former user [facility] Phone: End: 04-17-2017 History of tobacco use Chews Tobacco [facility] Phone: Start: 11-03-2020 End: 01-12-2021 Alcohol intake Ex-drinker (finding) [facility] Phone: Start: 1955 Sex Assigned At Not on file [facility] Phone: Start: 11-22-2021 End: 07-31-2022 Exposure to SARS-CoV-2 (event) Not sure [facility] Work Phone: Start: 04-18-2021 End: 01-08-2025 Alcohol intake Current non-drinker of alcohol (finding) [facility] Start: 10-08-2020 History SDOH Alcohol Std Drinks 98 [facility] Start: 03-28-2017 History SDOH Alcohol Comment seldom [facility] Start: 10-08-2020 End: 11-30-2021 History SDOH Social Connections Living 3 [facility] Start: 10-08-2020 End: 11-30-2021 History SDOH Physical Activity DPW 0 [facility] Start: 10-08-2020 End: 01-02-2023 History SDOH Stress 1 [facility] Start: 10-08-2020 End: 01-02-2023 History SDOH Housing Homeless Last Year 2 [facility] Start: 04-18-2021 Education 12 [facility] Start: 1955 Sex Assigned At Male [facility] Start: 11-30-2021 End: 01-02-2023 History SDOH Financial 5 [facility] Tobacco smoking stat us TXIS Tobacco smoking consumption unknown [facility] Start: 11-30-2021 End: 09-20-2022 History of Social function [facility] Start: 11-30-2021 End: 09-20-2022 Social connection and isolation panel [facility] Do you belong to any clubs or organizations such as scientologist groups, unions, fraternal or athletic groups, or school groups? No [facility] Are you now , , , , never or living with a partner? [facility] How often to you hav e a drink containing alcohol? Never [facility] Average Number of Drinks Not on file [facility] Work Phone: Do you feel stress - tense, restless, nervous, or anxious, or unable to sleep at night because your mind is troubled all the time - these days [OSQ] Not at all [facility] (I/We) worried wheelizabeth er (my/our) food would run out before (I/we) got money to buy more. Never true [facility] Work Phone: Start: 04-07-2021 Gender identity Identifies as male gender (finding) [facility] Start: 04-07-2021 Sexual orientation Heterosexual (finding) [facility] Start: 12-11-2024 End: 01-06-2025 Tobacco smoking status NHIS Ex-smoker (finding) [facility] Start: 09-29-2020 None None [facility] Start: 09-29-2020 Spouse/ Significant Other Spouse/ Significant Other [facility] Start: 10-03-2020 Non-smoker Non-smoker [facility] Start: 12-11-2024 End: 12-13-2024 Sex Male (finding) [facility] Medical Equipment Procedure Code Equipment Code Equipment Origin al Text Equipment Identifier Dates Insertion, catheter, hemodialysis CATHETER, CVD PLNDRME 19CM FDA Start: 09-30-2020 Insertion, catheter, hemodialysis CATHETER, CVD PLNDRME 19CM FDA Start: 09-30-2020 Insertion, catheter, hemodialysis FDA Start: 09-30-2020 Jmq-Za-N-Kind Implant - [id number] Start: 04-28-2022 Cement Simplex P Tobramycin Bone Full Dose Radiopaque Preblend Sterile - [id number] Start: 01-01-2023 T2 Femoral Nail Retrograde Strl 10mm X 200mm [id number] Start: 01-01-2023 Advanced Locking Screw 5mm X 35mm Sterile [id number] Start: 01-01-2023 Cement Simplex P Tobramycin Bone Full Dose Radiopaque Preblend Sterile - [id number] Start: 01-01-2023 Ozj-Xq-H-Kind Implant - [id number] Start: 04-28-2022 Vdo-Qq-K-Kind Implant - [id number] Start: 04-28-2022 Apt-Si-X-Kind Implant - [id number] Start: 04-28-2022 Drb-Th-O-Kind Implant - [id number] Start: 04-28-2022 Tto-Kr-W-Kind Implant - [id number] Start: 04-28-2022 Beg-Dw-K-Kind Implant - [id number] Start: 04-28-2022 Xpc-Tq-E-Kind Implant - [id number] Start: 04-28-2022 Drt-We-J-Kind Implant - [id number] Start: 04-28-2022 Hau-Xm-R-Kind Implant - [id number] Start: 04-28-2022 Akn-Zo-P-Kind Implant - [id number] Start: 04-28-2022 Advanced Locking Screw 5mm X 55mm Sterile [id number] Start: 01-01-2023 Advanced Locking Screw 5mm X 80mm Sterile [id number] Start: 01-01-2023 Advanced Locking Screw 5mm X 35mm Sterile [id number] Start: 01-01-2023 T2 Alpha Locking Screw 5mm X 75mm [id number] Start: 01-01-2023 Use one needle f or each dose. once/day. [id number] Start: 06-30-2024 Goals Date Patient Goal Desired Activity /State Functional Status Date Assessment Result Facility 01-16-2025 Are you deaf, or do you have serious difficulty hearing Yes 01/16/2025 10:20 AM Libby Marie RN Yes [facility] 01-16-2025 Are you blind, or do you have serious difficulty seeing, even when wearing glasses No 01/16/2025 10:20 AM Libby Marie RN No [facility] 01-16-2025 Do you have serious difficulty walking or climbing stairs Yes 01/16/2025 10:20 AM Libby Marie RN Yes [facility] 01-16-2025 Do you have difficul ty dressing or bathing Yes 01/16/2025 10:20 AM Libby Marie RN Yes [facility] 01-16-2025 Because of a physica l, mental, or emotional condition, do you have difficulty doing errands alone such as visiting a physician's office or shopping Yes 01/16/2025 10:20 AM Libby Marie RN Yes [facility] 12-13-2024 Functional status [facility] Work Phone: 05-08-2022 Are you deaf, or do you have serious difficulty hearing Yes 05/08/2022 11:30 AM Avelina Gan, RN Yes [facility] 05-08-2022 Are you blind, or do you have serious difficulty seeing, even when wearing glasses No 05/08/2022 11:30 AM Avelina Gan, RN No [facility] 05-08-2022 Do you have serious difficulty walking or climbing stairs Yes 05/08/2022 11:30 AM EDAvelina Teran, RN Yes [facility] 05-08-2022 Do you have difficul ty dressing or bathing Yes 05/08/2022 11:30 AM Avelina Gan, RN Yes [facility] 05-08-2022 Because of a physica l, mental, or emotional condition, do you have difficulty doing errands alone such as visiting a physician's office or shopping Yes 05/08/2022 11:30 AM Avelina Gan, RN Yes [facility] Mental Status Date Assessment Result Facility 01-16-2025 Because of a physica l, mental, or emotional condition, do you have serious difficulty concentrating, remembering, or making decisions Yes 01/16/2025 10:20 AM ARTUROT Libby Rodas RN Yes [facility] 12-13-2024 Cognitive function Voice/Name [facility] Work Phone: 05-08-2022 Because of a physica l, mental, or emotional condition, do you have serious difficulty concentrating, remembering, or making decisions No 05/08/2022 11:30 AM EDAvelina Teran, RN No [facility] Clinical Notes 04-08-2019 to 01-22-2025 Telephone Encounter - Lissette Sanabria RN - 01/22/2025 9:09 AM EDTTelephone Encounter - Lissette Sanabria RN - 01/22/2025 9:09 AM EDTTelephone Encounter - Rebecca Moe LPN - 01/09/2025 9:25 AM EDT Note Date & Type Note Facility 01-22-2025 Telephone encounter Note Vandana RN calling from [employer] calling ([phone]) to clarify if the cath once weekly on was a legitimate order. After reviewing discharge summary from inpatient stay it is a valid order. [place] 5/325 1 tablet before transport to dialysis, before physical therapy, and for his weekly urinary catheterization on urinary catheterization because of recurrent UTIs to be done weekly on THURSDAYS She is aware that it is the correct order. Verbalizes understanding. [facility] 01-22-2025 Miscellaneous Notes Vandana RN calling from [employer] calling ([phone]) to clarify if the cath once weekly on was a legitimate order. After reviewing discharge summary from inpatient stay it is a valid order. [place] 5/325 1 tablet before transport to dialysis, before physical therapy, and for his weekly urinary catheterization on urinary catheterization because of recurrent UTIs to be done weekly on THURSDAYS She is aware that it is the correct order. Verbalizes understanding. documented in this encounter [facility] 01-16-2025 Note HNO ID: [id number] Author: IVETT BENITEZ RN Service: Care Management Author Type: Registered Nurse Type: Care Mgt Progress Note Filed: 01/16/2025 09:22 Note Text: CARE MANAGEMENT DISCHARGE NOTE SERVICE DATE: January 16, 2025 SERVICE TIME: 9:19 AM Admission Date: 01/07/2025 LOS: 3 days Discharge Arrangement Discharge Arrangement: Half-Way Facility Was an expedited discharge program used?: No Services Arranged Medical Services: Other: See Comment Provider Name: Fabian Hazel Caregiver Assessment Caregiver is ready, willing and able to meet the patient's needs as recommended by the inter-professional team: Yes Name of Caregiver: Fabian Hazel Transportation Arrangements Transportation Arrangements: Ambulance Transportation Agency and Phone #:: [facility] [phone] Date of Trip: 01/16/25 Time of Trip: 1100 Type of Service: BLS Non-emergency Is Patient Medicaid Pending?: No Was transportation financial coverage discussed with family?: Patient, Spouse 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 [facility] accepted and precert has been obtained. Patient and are agreeable to discharge plan and deny needs. Ambulance transport scheduled for 11 AM grain picker. Bedside nurse updated. SOC sent to PCP and SNF. Discharge orders sent to [facility] via transitions. Envelope on chart with number to call report. SIGNATURE: Ivett Benitez RN PATIENT NAME: Mauri Quinones DATE: January 16, 2025 TIME: 9:19 AM [facility] 01-15-2025 Note HNO ID: [id number] Author: IVETT BENITEZ RN Service: Care Management [...] up transport for 11AM tomorrow. Referral to [facility] updated. Transport confirmed for 11AM grain picker. Patient and updated. SIGNATURE: Ivett Benitez RN PATIENT NAME: Mauri Quinones DATE: January 15, 2025 TIME: 4:43 PM [facility] 01-15-2025 Note HNO ID: [id number] Author: CECY OSBORNE RN Service: Dialysis Author [...] Report given to primary RN, Libby Rodas [facility] 01-15-2025 Note HNO ID: [id number] Author: MACEY VILLALBA APRN.CNP Service: Wound/Ostomy Author [...] wound care needs arise. SIGNATURE: Macey Villalba APRN.THEATRICAL PERFORMER PATIENT NAME: Mauri Quinones DATE: January 15, 2025 TIME: 11:48 AM [facility] 01-15-2025 Note HNO ID: [id number] Author: EVARISTO DAS MD Service: Hospital Medicine Author Type: Physician Type: Progress Notes Filed: 01/15/2025 15:06 Note Text: DEPARTMENT OF HOSPITAL MEDICINE PROGRESS NOTE SERVICE DATE: 01/15/2025 SERVICE TIME: 10:51 AM Hospital Medicine/Primary Attending: Evaristo Das MD NIGHT AND WEEKEND COVERAGE: ELROSA COVERAGE: Nights: [phone], please page [place] [facility] Night coverage pager [phone]. Probable discharge: 01/12 Disposition: [facility] facility Consultants: Dr. Saucedo for orthopedics Dr. [...] presents with fall and left hip pain. [place] 5/325 1 tablet before transport to dialysis, [...] likely for immobilization Principal Problem: Sacral fracture ([facility]) Closed fracture of left superior pubic ramus ([facility]) Pain control Recently wheelchair bound at home per Ortho with conservative management Pre-CERT expires Sunday Chronic combined systolic and diastolic CHF (congestive heart failure) ([facility]) History of coronary artery bypass graft Chronic atrial fibrillation (HCC) on Eliquis Continue midodrine, bumex, atorvastatin Next dialysis Recent urinary retention with butler that was removed out-patient Monitor urine output Yest residual <50ml Straight cath weekly 1 [place] 5/325 ESRD (end stage renal disease) on dialysis ([facility]) Hyperkalemia T Sun schedule Type 2 diabetes mellitus without complication, with long-term current use of insulin ([facility]) Lantus 10 units on admission BS on lower side will decrease lantus to 6 units Monitor sugars Goal for glucose 100-180-at goal Patient Active Hospital Problem List: Sacral fracture (HCC) Date Noted: 01/07/2025 Closed fracture of left superior pubic ramus (HCC) Date Noted: 01/07/2025 ESRD (end stage renal disease) on dialysis ([facility]) Date Noted: 06/05/2022 Chronic combined systolic and diastolic CHF (congestive heart failure) ([facility]) Date Noted: 03/24/2019 History of coronary artery bypass graft Date Noted: 04/18/2019 Chronic atrial fibrillation ([facility]) Date Noted: 01/07/2025 Type 2 diabetes mellitus without complication, with long-term current use of insulin ([facility]) Date Noted: 03/21/2016 History of recurrent UTIs [...] Problems as of 01/15/2025 Noted - Resolved [facility] * (Principal) Sacral fracture ([facility]) 01/07/2025 - Present Yes Closed fracture of left superior pubic ramus ([facility]) 01/07/2025 - Present Yes ESRD (end stage renal disease) on dialysis ([facility]) 06/05/2022 - Present Yes Overview Sees Dr. Jackson. Chronic combined systolic and diastolic CHF (congestive heart failure) ([facility]) 03/24/2019 - Present Yes History of coronary artery bypass graft 04/18/2019 - Present Yes Overview 04/10/17 CARTY to LAD, SVG to PDA, SVG to OM Chronic atrial fibrillation ([facility]) 01/07/2025 - Present Yes Type 2 diabetes mellitus without complication, with long-term current use of insulin ([facility]) (more content not included)... [facility] 01-14-2025 Note HNO ID: [id number] Author: EVARISTO DAS MD Service: Hospital Medicine Author Type: Physician Type: Progress Notes Filed: 01/14/2025 18:26 Note Text: DEPARTMENT OF HOSPITAL MEDICINE PROGRESS NOTE SERVICE DATE: 01/14/2025 SERVICE TIME: 6:23 PM Hospital Medicine/Primary Attending: Evaristo Das MD NIGHT AND WEEKEND COVERAGE: ELROSA COVERAGE: Nights: [phone], please page [place] Night coverage pager [phone]. Probable discharge: 01/12 Disposition: [facility] Consultants: Dr. Saucedo for orthopedics Dr. [...] Closed fracture of left superior pubic ramus ([facility]) Pain control Recently wheelchair bound at home per Ortho with conservative management Pre-CERT expires Sunday Chronic combined systolic and diastolic CHF (congestive heart failure) ([facility]) History of coronary artery bypass graft Chronic atrial fibrillation (HCC) on Eliquis Continue midodrine, bumex, atorvastatin Next dialysis Recent urinary retention with butler that was removed out-patient Monitor urine output Yest residual <50ml Straight cath weekly ESRD (end stage renal disease) on dialysis ([facility]) Hyperkalemia T Sun schedule Type 2 diabetes mellitus without complication, with long-term current use of insulin ([facility]) Lantus 10 units on admission BS on lower side will decrease lantus to 6 units Monitor sugars Goal for glucose 100-180-at goal Patient Active Hospital Problem List: Left hip pain Date Noted: 01/07/2025 Type 2 diabetes mellitus without complication, with long-term current use of insulin ([facility]) Date Noted: 03/21/2016 Chronic combined systolic and diastolic CHF (congestive heart failure) ([facility]) Date Noted: 03/24/2019 History of coronary artery bypass graft Date Noted: 04/18/2019 ESRD (end stage renal disease) on dialysis ([facility]) Date Noted: 06/05/2022 Sacral fracture ([facility]) Date Noted: 01/07/2025 Closed fracture of left superior pubic ramus ([facility]) Date Noted: 01/07/2025 Chronic atrial fibrillation ([facility]) Date Noted: 01/07/2025 Encephalopathy acute Date Noted: [...] [facility]. Dr. Lroedo consulted for dialysis. Active Hospital Problems as of 01/14/2025 Noted - Resolved [facility] * (Principal) Left hip pain 01/07/2025 - Present Yes Type 2 diabetes mellitus without complication, with long-term current use of insulin ([facility]) 03/21/2016 - Present Yes Overview 09/04/17 glucose 233, BUN 25, creatinine 1.04, normal lytes Chronic combined systolic and diastolic CHF (congestive heart failure) ([facility]) 03/24/2019 - Present Yes History of coronary artery bypass graft 04/18/2019 - Present Yes Overview 04/10/17 CARTY to LAD, SVG to PDA, SVG to OM ESRD (end stage renal disease) on dialysis ([facility]) 06/05/2022 - Present Yes Overview Sees Dr. Jackson. Sacral fracture ([facility]) 01/07/2025 - Present Yes Closed fracture of left superior pubic ramus ([facility]) 01/07/2025 - Present Yes Chronic atrial fibrillation ([facility]) 01/07/2025 - Present Yes Encephalopathy acute 01/08/2025 [...] distention, Supple LUNGS: (more content not included)... [facility] 01-14-2025 Note HNO ID: [id number] Author: KAILYN CERDA RN Service: Care Management Author Type: Registered Nurse Type: Care Mgt Progress Note Filed: 01/14/2025 13:45 Note Text: CARE MANAGEMENT PROGRESS NOTE SERVICE DATE: 01/14/2025 SERVICE TIME: 1:41 PM LOS: 1 day Needs Prior to Discharge: To Be Determined EMR reviewed. Precert approved for [facility] through 01/19/25. [facility] [phone] updated that patient selected SNF in [place] and will continue HD in their center upon discharge. CM will follow. SIGNATURE: Kailyn Cerda RN PATIENT NAME: Mauri Quinones DATE: January 14, 2025 TIME: 1:41 PM [facility] 01-13-2025 Note HNO ID: [id number] Author: EVARISTO DAS MD Service: Hospital Medicine Author Type: Physician Type: Progress Notes Filed: 01/13/2025 21:04 Note Text: DEPARTMENT OF HOSPITAL MEDICINE PROGRESS NOTE SERVICE DATE: 01/13/2025 SERVICE TIME: 8:35 AM Hospital Medicine/Primary Attending: Evaristo Das MD NIGHT AND WEEKEND COVERAGE: ELROSA COVERAGE: Nights: [phone], please page [place] [facility] Night coverage pager [phone]. Probable discharge: 01/12 Disposition: [facility] facility Consultants: Dr. Saucedo for orthopedics Dr. [...] Closed fracture of left superior pubic ramus ([facility]) Pain control Recently wheelchair bound at home per Ortho with conservative management Need precert Chronic combined systolic and diastolic CHF (congestive heart failure) ([facility]) History of coronary artery bypass graft Chronic atrial fibrillation ([facility]) on Eliquis Continue midodrine, bumex, atorvastatin Next dialysis Sunday Recent urinary retention with butler that was removed out-patient Monitor urine output Yest residual <50ml Straight cath weekly ESRD (end stage renal disease) on dialysis ([facility]) Hyperkalemia T Sun schedule Type 2 diabetes mellitus without complication, with long-term current use of insulin ([facility]) Lantus 10 units on admission BS on lower side will decrease lantus to 6 units Monitor sugars Goal for glucose 100-180-at goal Patient Active Hospital Problem List: Left hip pain Date Noted: 01/07/2025 Type 2 diabetes mellitus without complication, with long-term current use of insulin ([facility]) Date Noted: 03/21/2016 Chronic combined systolic and diastolic CHF (congestive heart failure) ([facility]) Date Noted: 03/24/2019 History of coronary artery bypass graft Date Noted: 04/18/2019 ESRD (end stage renal disease) on dialysis ([facility]) Date Noted: 06/05/2022 Sacral fracture ([facility]) Date Noted: 01/07/2025 Closed fracture of left superior pubic ramus ([facility]) Date Noted: 01/07/2025 Chronic atrial fibrillation ([facility]) Date Noted: 01/07/2025 Encephalopathy acute Date Noted: [...] Problems as of 01/13/2025 Noted - Resolved [facility] * (Principal) Left hip pain 01/07/2025 - Present Yes Type 2 diabetes mellitus without complication, with long-term current use of insulin ([facility]) 03/21/2016 - Present Yes Overview 09/04/17 glucose 233, BUN 25, creatinine 1.04, normal lytes Chronic combined systolic and diastolic CHF (congestive heart failure) ([facility]) 03/24/2019 - Present Yes History of coronary artery bypass graft 04/18/2019 - Present Yes Overview 04/10/17 CARTY to LAD, SVG to PDA, SVG to OM ESRD (end stage renal disease) on dialysis ([facility]) 06/05/2022 - Present Yes Overview Sees Dr. Jackson. Sacral fracture ([facility]) 01/07/2025 - Present Yes Closed fracture of left superior pubic ramus ([facility]) 01/07/2025 - Present Yes Chronic atrial fibrillation ([facility]) 01/07/2025 - Present Yes Encephalopathy acute 01/08/2025 - Present Yes CO2 retention 01/08/2025 - Present Yes EXAM PHYSICAL EXAM: BP 105/54 Pulse 116 Temp (Src) 98 (Axillary) Resp 18 Wt 165 lb (74.8k (more content not included)... [facility] 01-12-2025 Note HNO ID: [id number] Author: EVARISTO DAS MD Service: Hospital Medicine Author Type: Physician Type: Progress Notes Filed: 01/12/2025 17:41 Note Text: DEPARTMENT OF HOSPITAL MEDICINE PROGRESS NOTE SERVICE DATE: 01/12/2025 SERVICE TIME: 5:36 PM Hospital Medicine/Primary Attending: Evaristo Das MD NIGHT AND WEEKEND COVERAGE: ELROSA COVERAGE: Nights: [phone], please page [facility] Night coverage pager [phone]. Probable discharge: 01/12 Disposition: [facility] Consultants: Dr. Saucedo for orthopedics Dr. Loerdo for nephrology PROCEDURES: NONE CODE STATUS: Full [...] Sunday MRI -refused Will be okay for half-way placement for rehab choices made awaiting precertification For urologist straight cath once weekly because he makes little urine but does not void well Principal Problem: Sacral fracture (HCC) Closed fracture of left superior pubic ramus ([facility]) Pain control Recently wheelchair bound at home per Ortho with conservative management Need precert Chronic combined systolic and diastolic CHF (congestive heart failure) ([facility]) History of coronary artery bypass graft Chronic atrial fibrillation (HCC) on Eliquis Continue midodrine, bumex, atorvastatin Next dialysis Sunday Recent urinary retention with butler that was removed out-patient Monitor urine output Yest residual <50ml Straight cath weekly ESRD (end stage renal disease) on dialysis ([facility]) Hyperkalemia Sun schedule Type 2 diabetes mellitus without complication, with long-term current use of insulin ([facility]) Lantus 10 units on admission BS on lower side will decrease lantus to 6 units Monitor sugars Goal for glucose 100-180-at goal Patient Active Hospital Problem List: Left hip pain Date Noted: 01/07/2025 Type 2 diabetes mellitus without complication, with long-term current use of insulin ([facility]) Date Noted: 03/21/2016 Chronic combined systolic and diastolic CHF (congestive heart failure) ([facility]) Date Noted: 03/24/2019 History of coronary artery bypass graft Date Noted: 04/18/2019 ESRD (end stage renal disease) on dialysis ([facility]) Date Noted: 06/05/2022 Sacral fracture ([facility]) Date Noted: 01/07/2025 Closed fracture of left superior pubic ramus ([facility]) Date Noted: 01/07/2025 Chronic atrial fibrillation ([facility]) Date Noted: 01/07/2025 Encephalopathy acute Date Noted: [...] Problems as of 01/12/2025 Noted - Resolved [facility] * (Principal) Left hip pain 01/07/2025 - Present Yes Type 2 diabetes mellitus without complication, with long-term current use of insulin ([facility]) 03/21/2016 - Present Yes Overview 09/04/17 glucose 233, BUN 25, creatinine 1.04, normal lytes Chronic combined systolic and diastolic CHF (congestive heart failure) ([facility]) 03/24/2019 - Present Yes History of coronary artery bypass graft 04/18/2019 - Present Yes Overview 04/10/17 CARTY to LAD, SVG to PDA, SVG to OM ESRD (end stage renal disease) on dialysis ([facility]) 06/05/2022 - Present Yes Overview Sees Dr. Jackson. Sacral fracture ([facility]) 01/07/2025 - Present Yes Closed fracture of left superior pubic ramus ([facility]) 01/07/2025 - Present Yes Chronic atrial fibrillation ([facility]) 01/07/2025 - Present Yes Encephalopathy acute 01/08/2025 [...] at baseline cognitio (more content not included)... [facility] 01-12-2025 Note HNO ID: [id number] Author: IVETT BENITEZ RN Service: Care Management Author Type: Registered Nurse Type: Care Mgt Progress Note Filed: 01/12/2025 16:11 Note Text: CARE MANAGEMENT PROGRESS NOTE SERVICE DATE: 01/12/2025 SERVICE TIME: 1:22 PM LOS: 0 days Needs Prior to Discharge: To Be Determined, Accepting Facility, Bed Availability, Precertification EMR reviewed. Patient/ changed FOC to [facility]. Awaiting if they can accept. Precert approved for [facility], Onsite HD also approved. PT/OT rec SNF. L Hip pain, sacral fracture, closed fx left superior pubic ramus. Non-surgical. Mentation improved. On RA 4:07 PM Multiple messages sent to [facility] to inquire if they can accept, answered all of their questions asked. They now advised they can accept. Referral to [facility] updated that facility of choice has changed. Precert has been obtained for [facility], Tasked [facility] and sent secure chat message to switch the precert to [facility]. PASS updated and facility changed to [facility]. Met with patient and at bedside to update. SIGNATURE: Ivett Benitez RN PATIENT NAME: Mauri Quinones DATE: January 12, 2025 TIME: 1:22 PM [facility] 01-11-2025 Note HNO ID: [id number] Author: EVARISTO DAS MD Service: Hospital Medicine Author Type: Physician Type: Progress Notes Filed: 01/11/2025 18:03 Note Text: DEPARTMENT OF HOSPITAL MEDICINE PROGRESS NOTE SERVICE DATE: 01/11/2025 SERVICE TIME: 4:54 PM Hospital Medicine/Primary Attending: Evaristo Das MD NIGHT AND WEEKEND COVERAGE: ELROSA COVERAGE: Nights: [phone], please page [facility] Night coverage pager [phone]. Probable discharge: 01/12 Disposition: [facility] facility Consultants: Dr. Saucedo for orthopedics Dr. [...] Sunday MRI -refused Will be okay for half-way placement for rehab choices made awaiting precertification Principal Problem: Left hip pain Sacral fracture (HCC) Closed fracture of left superior pubic ramus ([facility]) Orthopedics consult Pain control Recently wheelchair bound [...] systolic and diastolic CHF (congestive heart failure) ([facility]) History of coronary artery bypass graft Chronic atrial fibrillation ([facility]) on Eliquis Continue midodrine, bumex, atorvastatin Next dialysis Sunday Recent urinary retention with butler that was removed out-patient Monitor urine output Yest residual <50ml ESRD (end stage renal disease) on dialysis ([facility]) Hyperkalemia T Sun schedule with last IHD on 01/06 Dialysis yesterday Type 2 diabetes mellitus without complication, with long-term current use of insulin ([facility]) Lantus 10 units on admission BS on lower side will decrease lantus to 6 units Monitor sugars Goal for glucose 100-180-at goal Patient Active Hospital Problem List: Left hip pain Date Noted: 01/07/2025 Type 2 diabetes mellitus without complication, with long-term current use of insulin ([facility]) Date Noted: 03/21/2016 Chronic combined systolic and diastolic CHF (congestive heart failure) ([facility]) Date Noted: 03/24/2019 History of coronary artery bypass graft Date Noted: 04/18/2019 ESRD (end stage renal disease) on dialysis ([facility]) Date Noted: 06/05/2022 Sacral fracture ([facility]) Date Noted: 01/07/2025 Closed fracture of left superior pubic ramus (HCC) Date Noted: 01/07/2025 Chronic atrial fibrillation (HCC) Date Noted: 01/07/2025 Encephalopathy acute Date Noted: [...] Hospital Problems as of 01/11/2025 Noted - [facility] * (Principal) Left hip pain 01/07/2025 - Present Yes Type 2 diabetes mellitus without complication, with long-term current use of insulin ([facility]) 03/21/2016 - Present Yes Overview 09/04/17 glucose 233, BUN 25, creatinine 1.04, normal lytes Chronic combined systolic and diastolic CHF (congestive heart failure) ([facility]) 03/24/2019 - Present Yes History of coronary artery bypass graft 04/18/2019 - Present Yes Overview 04/10/17 CARTY to LAD, SVG to PDA, SVG to OM ESRD (end stage renal disease) on dialysis ([facility]) 06/05/2022 - Present Yes Overview Sees Dr. Jackson. Sacral fracture ([facility]) 01/07/2025 - Present Yes Closed fracture of left superior pubic ramus ([facility]) 01/07/2025 - Present Yes Chronic atrial fibrillation ([facility]) 01/07/2025 - Present Yes Encephalopathy acute 01/08/2025 - Present Yes CO2 retention 01/08/2025 - Present Yes EXAM PHYSICAL EXAM: BP 124/58 Pulse 87 Temp (Src) 98 (Oral) Resp 18 Wt 165 lb (74.8kg) (more content not included)... [facility] 01-11-2025 Note HNO ID: [id number] Author: MANUELA GUERRIER LSW Service: Care Management Author Type: Mercantile Reporter Type: Care Mgt Progress Note Filed: 01/11/2025 [...] DATE: January 11, 2025 TIME: 8:25 AM [facility] 01-11-2025 Note HNO ID: [id number] Author: NOTE, INTERFACE, ? Service: ? Author Type: ? Type: Progress Notes Filed: 01/11/2025 02:53 Note Text: Epic Scheduled Downtime: 01/11/2025 1:00:00 AM to 01/11/2025 2:37:00 AM [facility] 01-10-2025 Note HNO ID: [id number] Author: MANUELA GUERRIER LSW Service: Care Management Author Type: Mercantile Reporter Type: Care Mgt Progress Note Filed: 01/10/2025 14:35 Note Text: CARE MANAGEMENT PROGRESS NOTE SERVICE DATE: 01/10/2025 SERVICE TIME: 2:34 PM LOS: 0 days CM received call , from unit [facility], to f/u with pt's family. CM spoke with pt's spouse who is aware precert is still pending at [facility] and she requested that [facility] also be sent clinicals for review. Information sent to [facility], via [facility]. CM will continue to follow with d/c planning. SIGNATURE: JORGE Barbosa ACM PATIENT NAME: Mauri Quinones DATE: January 10, 2025 TIME: 2:33 PM [facility] 01-10-2025 Note HNO ID: [id number] Author: EVARISTO DAS MD Service: Hospital Medicine Author Type: Physician Type: Progress Notes Filed: 01/10/2025 15:03 Note Text: DEPARTMENT OF HOSPITAL MEDICINE PROGRESS NOTE SERVICE DATE: 01/10/2025 SERVICE TIME: 2:30 PM Hospital Medicine/Primary Attending: Evaristo Das MD NIGHT AND WEEKEND COVERAGE: ELROSA COVERAGE: Nights: [phone], please page [facility] Night coverage pager [phone]. Probable discharge: 01/12 Disposition: [facility] facility Consultants: Dr. Saucedo for orthopedics Dr. [...] ESRD (end stage renal disease) on dialysis ([facility]) Hyperkalemia T Th Sat schedule with last IHD on 01/06 Nephrology consulted Dialysis yesterday Type 2 diabetes mellitus without complication, with long-term current use of insulin ([facility]) Lantus 10 units on admission BS on lower side will decrease lantus to 6 units Monitor sugars Patient Active Hospital Problem List: Left hip pain Date Noted: 01/07/2025 Type 2 diabetes mellitus without complication, with long-term current use of insulin ([facility]) Date Noted: 03/21/2016 Chronic combined systolic and diastolic CHF (congestive heart failure) ([facility]) Date Noted: 03/24/2019 History of coronary artery bypass graft Date Noted: 04/18/2019 ESRD (end stage renal disease) on dialysis ([facility]) Date Noted: 06/05/2022 Sacral fracture ([facility]) Date Noted: 01/07/2025 Closed fracture of left superior pubic ramus ([facility]) Date Noted: 01/07/2025 Chronic atrial fibrillation ([facility]) Date Noted: 01/07/2025 Encephalopathy acute Date Noted: [...] Problems as of 01/10/2025 Noted - Resolved [facility] * (Principal) Left hip pain 01/07/2025 - Present Yes Type 2 diabetes mellitus without complication, with long-term current use of insulin ([facility]) 03/21/2016 - Present Yes Overview 09/04/17 glucose 233, BUN 25, creatinine 1.04, normal lytes Chronic combined systolic and diastolic CHF (congestive heart failure) ([facility]) 03/24/2019 - Present Yes History of coronary artery bypass graft (more content not included)... [facility] 01-10-2025 Note HNO ID: [id number] Author: ABILIO CARRIZALES RN Service: ? Author Type: Registered Nurse Type: Progress Notes Filed: 01/10/2025 12:53 Note Text: Hemodialysis completed 3.5 hours. Patient tolerated well, BP stable throughout. Fluid removed was 2500 ml. Next HD Sunday01/13/25. Report given post dialysis to Rikki Washington RN [facility] 01-10-2025 Note HNO ID: [id number] Author: NOTE, INTERFACE, ? Service: ? Author Type: ? Type: Progress Notes Filed: 01/10/2025 03:45 Note Text: Epic Scheduled Downtime: 01/10/2025 1:00:00 AM to 01/10/2025 3:39:00 AM [facility] 01-09-2025 Note HNO ID: [id number] Author: IVETT BENITEZ RN Service: Care Management Author Type: Registered Nurse Type: Care Mgt Progress Note Filed: 01/09/2025 16:11 Note Text: CARE MANAGEMENT PROGRESS NOTE SERVICE DATE: 01/09/2025 SERVICE TIME: 2:46 PM LOS: 0 days Needs Prior to Discharge: To Be Determined, Accepting Facility, Bed Availability, Precertification [place] of Choice Given: Yes Level of Care Discussed: Half-Way Facility Financial Disclosure Provided: Yes Provider List: Half-Way Facility Provider list within the patient's requested geographic area shared with the patient/family: Yes within: 15 miles of zip code: [address] Quality and resource use metrics shared with the patient that are relevant to the patient's goals of care and treatment preferences:: Yes Metrics: Functional Status, Discharge to Community, Potentially Preventable 30-day Post Discharge Readmission Rates PT/OT rec SNF. Met with patient and at bedside. provided [facility] and [facility] as choices. SNF list provided for her to review for further choices in case neither facility can accept. 4:09 PM [facility] has accepted, confirms they are FOC as they have onsite HD. They have started auth for SNF and onsite HD. Will need auth for both back prior to admission. [facility]. PASRR completed. SIGNATURE: Ivett Benitez RN PATIENT NAME: Mauri Quinones DATE: January 09, 2025 TIME: 2:45 PM [facility] 01-09-2025 Note HNO ID: [id number] Author: LUIS MADERA MD Service: Hospital Medicine Author Type: Physician Type: Progress Notes Filed: 01/09/2025 16:09 Note Text: DEPARTMENT OF HOSPITAL MEDICINE Progress note SERVICE DATE: 01/09/2025 SERVICE TIME: 2:19 PM Primary Care Physician: Rigoberto Gould MD NIGHT AND WEEKEND COVERAGE: ELROSA COVERAGE: Days: [phone], please page attending physician. Nights: [phone], please page [facility] Night coverage pager [phone]. Subjective Seen working with therapy. Heavy assist. [...] and Airways Line Duration Peripheral 01/07/25 1414 [facility] Right Antecubital 20 Gauge 2 days [...] systolic and diastolic CHF (congestive heart failure) ([facility]) History of coronary artery bypass graft Chronic atrial fibrillation (HCC) on Eliquis Continue midodrine, bumex, atorvastatin Restart eliquis Recent urinary retention with butler that was removed out-patient Monitor urine output Yest residual <50ml ESRD (end stage renal disease) on dialysis ([facility]) Hyperkalemia T Sat schedule with last IHD on 01/06 Nephrology consulted Dialysis yesterday Type 2 diabetes mellitus without complication, with long-term current use of insulin ([facility]) Lantus 10 units on admission BS on [...] reflect current decision making from today, 01/09/25 [facility] 01-09-2025 Telephone encounter Note Tracie from [facility] calling patient was transferred to [facility] with fractured pelvis. Plan to discharge to SNF with dialysis when patient is ready. [facility] 01-09-2025 Miscellaneous Notes Tracie from [facility] calling patient was transferred to [facility] with fractured pelvis. Plan to discharge to SNF with dialysis when patient is ready. documented in this encounter [facility] 01-08-2025 Note HNO ID: [id number] Author: KENNA FRAGOSO RN Service: Dialysis Author Type: Registered Nurse Type: Progress Notes Filed: 01/08/2025 20:18 Note Text: 3hr HD tx complete via left upper AVF. Hemostasis achieved. +thrill/bruit. Total UF remove =1L. Report provided to primary RN. See scanned docs for tx data. [facility] 01-08-2025 Note HNO ID: [id number] Author: LUIS MADERA MD Service: Hospital Medicine Author Type: Physician Type: Progress Notes Filed: 01/08/2025 13:59 Note Text: DEPARTMENT OF HOSPITAL MEDICINE Progress note SERVICE DATE: 01/08/2025 SERVICE TIME: 1:50 PM Primary Care Physician: Rigoberto Gould MD NIGHT AND WEEKEND COVERAGE: ELROSA COVERAGE: Days: [phone], please page attending physician. Nights: [phone], please page [facility] Night coverage pager [phone]. Subjective Patient sleepy per nurse, arousable. Denies [...] and Airways Line Duration Peripheral 01/07/25 1414 [facility] Right Antecubital 20 Gauge <1 day [...] ESRD (end stage renal disease) on dialysis ([facility]) Hyperkalemia T Th Sat schedule with last IHD on 01/06 Nephrology consulted Dialysis planned for today Type 2 diabetes mellitus without complication, with long-term current use of insulin ([facility]) Continue Lantus 10 units SSI Monitor sugars Full code Medication Reconciliation: Completed Medication and Non-Pharmacologic VTE Prophylaxis/Anticoagulants VTE Prophylaxis: VTE prophylaxis appropriate Disposition: To be determined Plan of care discussed with Provider, RN, Patient Plan communicated to: N/A Some elements copied from previous progress note dated 01/07/25 , the elements have been updated and all reflect current decision making from today, 01/08/25 [facility] 01-08-2025 Note HNO ID: [id number] Author: FLOYD RICHMOND RN Service: ? Author Type: Registered Nurse Type: Progress Notes Filed: 01/08/2025 11:14 Note Text: Transitional Care Management (TCM) Inpatient Outreach N/A - No specialty updates needed Summary: Patient admitted to: [facility] Patient admitted on: 01/07/2025 Admitted for: fractured pelvis Contact made with patient: No Mychart message sent Outreach ended. Floyd Richmond RN January 08, 2025 [facility] 01-08-2025 History of Presen t illness Narrative Transitional Care Management (TCM) Inpatient Outreach N/A - No specialty updates needed Summary: Patient admitted to: [facility] Patient admitted on: 01/07/2025 Admitted for: fractured pelvis Contact made with patient: No Mychart message sent Outreach ended. Floyd Richmond RN January 08, 2025 documented in this encounter [facility] 01-08-2025 Note Patient Outreach [place] [facility] STACIEMAURI Delcid ([id number]) 1955 M [facility] Date Time Provider Department 01/08/25 FLOYD RICHMONDG During your visit today, we recorded the following information about you: Floyd Richmond RN 01/08/2025 11:14 AM Signed Transitional Care Management (TCM) Inpatient Outreach N/A - No specialty updates needed Summary: Patient admitted to: [facility] Patient admitted on: 01/07/2025 Admitted for: fractured pelvis Contact made with patient: No [employer] message sent Outreach ended. Floyd Richmond RN [...] tablet by mouth every morning. - Insulin Ridge, Disposable, (BD ULTRA-FINE GOLDY PEN NEEDLE) 32 [...] Ischemic cardiomyopathy [I25.5] (more content not included)... [facility] 01-07-2025 Note HNO ID: [id number] Author: MANUELA GUERRIER LSW Service: Care Management Author Type: Mercantile Reporter Type: Care Mgt Initial Assessment Filed: 01/07/2025 22:36 Note Text: CARE MANAGEMENT: ASSESSMENT AND DISCHARGE PLAN SERVICE DATE: January 07, 2025 SERVICE TIME: 10:33 PM PCP: Rigoberto Gould MD/reviewed Primary Contact: Extended Emergency Contact Information Primary Emergency Contact: Nick YunYun bishop Address: [address] [place] [address] Mobile Relation: Spouse Admission Status: Observation Insurance Provider: [employer]ICARE ADVANTAGE [facility] [place] Discharge Planning requested by: Per Department Practice Potential Transition Plans Advance Directives Current Advance Directive: Health Care Power of Cad Detailer, Living Will In Chart: No National Secretary Attempted to Assist with AD Completion: Yes [...] Post-Acute Service(s): Dialysis Current Post-Acute Service(s) Provider: T/Elizabeth/Arnold Robin Discharge Planning Patient Goal(s): General wellness [place] [facility] [place] Explained: [place] [facility] [place] Given: No Reason Not Given: [...] current services. SNF 2 years ago @ [facility]. [facility] and [facility], in [facility]. Uses wheelchair. ESRD T/Th/Sat Anitra Robin. Spouse will grain picker on d/c. CM will follow with d/c planning needs. SIGNATURE: JORGE Barbosa, ACAditya PATIENT NAME: Mauri Quinones DATE: January 07, 2025 TIME: 10:33 PM [facility] 01-07-2025 Note HNO ID: [id number] Author: GISELE TRAN RN Service: Nursing Author Type: Registered Nurse Type: Nursing Progress Note Filed: 01/07/2025 09:47 Note Text: [id number]: paged for admission orders [facility] 01-06-2025 Radiology Diagnostic study note [facility] 01-06-2025 Radiology Diagnostic study note [facility] 01-06-2025 Radiology Diagnostic study note [facility] 01-06-2025 History of Presen t illness Narrative Patient presents to have bladder drained. Patient is a dialysis patient but has retention and history of UTI's. Catheter inserted and 350 ml brownish urine. Patient to have drained weekly to try to prevent UTI. documented in this encounter [facility] 01-06-2025 Note HNO ID: [id number] Author: NICK MUÑOZ RN Service: ? Author Type: Registered Nurse Type: Progress Notes Filed: 01/23/2025 10:48 Note Text: Patient presents to have bladder drained. Patient is a dialysis patient but has retention and history of UTI's. Catheter inserted and 350 ml brownish urine. Patient to have drained weekly to try to prevent UTI. [facility] 01-06-2025 Telephone encounter Note Nick spoke with patient and coming in for Nurse visit today. [facility] 01-06-2025 Miscellaneous Notes Nick spoke with patient and coming in for Nurse visit today. Patient calling to see which DrDavion He saw when there at office. I attempted to call back and get patient the information. Left Dr. Puckett's name on voicemail, and advised to call back if needed. PLAN: Butler out today Will call if has to have replaced Would do cysto then Jensen Puckett Jr, MD documented in this encounter [facility] 01-05-2025 Telephone encounter Note Patient calling to see which DrDavion He saw when there at office. I attempted to call back and get patient the information. Left Dr. Puckett's name on voicemail, and advised to call back if needed. PLAN: Butler out today Will call if has to have replaced Would do cysto then Jensen Puckett Jr, MD [facility] 01-03-2025 Note HNO ID: [id number] Author: JENSEN PUCKETT JR, MD Service: ? [...] Value 04/24/2022 Negative 03/23/2019 NEGATIVE mg/dL Specific [place], Ur (no units) Date Value 04/24/2022 1.014 [...] 1 tablet by mouth every morning. Insulin Ridge, Disposable, (BD ULTRA-FINE GOLDY PEN NEEDLE) 32 [...] Acute on chronic diastolic congestive heart failure ([facility]) 07/14/2018 GARRET (acute kidney injury) 03/24/2019 GARRET (acute kidney injury) 03/24/2019 Ankylosing spondylitis ([facility]) CAD (coronary artery disease) Cellulitis Chronic combined systolic and diastolic CHF (congestive heart failure) ([facility]) 03/24/2019 CKD (chronic kidney disease) stage 3, GFR 30-59 ml/min ([facility]) 03/24/2019 Constipation Diabetes ([facility]) Gout High phosphate levels 03/24/2019 History of [...] valve calcifi NSTEMI (non-ST elevated myocardial infarction) ([facility]) 03/12/2017 [facility] admit Osteoarthritis Transition of care performed with sharing of clinical summary 04/08/2019 Admit [facility] 03/21/19-03/22/19 Discharge diagnoses chronic kidney disease with worsening creatinine, acute kidney injury Hypokalemia Toxic encephalopathy secondary to Flexeril overusage Type 2 diabe (more content not included)... [facility] 01-03-2025 History of Presen t illness Narrative NEW PATIENT HISTORY AND PHYSICAL EXAM PATIENT INFO: Mauri Quinones 69 year old REFERRING PROVIDER: NO PCP PCP: Rigobetro Gould MD HPI Mauri Quinones is a [...] Value 04/24/2022 Negative 03/23/2019 NEGATIVE mg/dL Specific [place], Ur (no units) Date Value 04/24/2022 1.014 [...] 1 tablet by mouth every morning. Insulin Ridge, Disposable, (BD ULTRA-FINE GOLDY PEN NEEDLE) 32 [...] GARRET (acute kidney injury) 03/24/2019 Ankylosing spondylitis ([facility]) CAD (coronary artery disease) Cellulitis Chronic combined systolic and diastolic CHF (congestive heart failure) ([facility]) 03/24/2019 CKD (chronic kidney disease) stage 3, GFR 30-59 ml/min ([facility]) 03/24/2019 Constipation Diabetes ([facility]) Gout High phosphate levels 03/24/2019 History of [...] valve calcifi NSTEMI (non-ST elevated myocardial infarction) ([facility]) 03/12/2017 [facility] admit Osteoarthritis Transition of care performed with sharing of clinical summary 04/08/2019 Admit [facility] 03/21/19-03/22/19 Discharge diagnoses chronic kidney disease with worsening creatinine, acute kidney injury Hypokalemia Toxic encephalopathy secondary to Flexeril overusage Type 2 diabetes Ischemic cardiomyopathy Coronary artery disease Ligamental cervical neck strain and acute Pulmonary hypertension Hypertension Pyuria Preadmit: to [facility] ED with slurred speech, lethargy. FAMILY [...] Puckett Jr, MD documented in this encounter [facility] 01-02-2025 Telephone encounter Note Call placed to patient and notified of below with verbalized understanding. Susu Hernandez RN [facility] 01-02-2025 Miscellaneous Notes Call placed to [...] increase the dose of trazodone. Pharmacy is [facility]. Susu Hernandez RN documented in this encounter [facility] 01-02-2025 Telephone encounter Note Lets increase the dose to 100 mg at bedtime. Let me know again in a couple weeks how he is doing. It could be increased further if need be. Order sent to pharmacy. May take 2 of the 50s to use them up. [facility] 01-02-2025 Telephone encounter Note Patient calls [...] increase the dose of trazodone. Pharmacy is [facility]. Susu Hernandez RN [facility] 12-30-2024 Telephone encounter Note [facility]- phoned concerned about pt not voiding for one week and asked if patient had seen pcp. Given Rozina update on patient per chart notes. Rozina will call patient to discuss. [facility] 12-30-2024 Miscellaneous Notes [facility]- phoned concerned about pt not voiding for one week and asked if patient had seen pcp. Given Rozina update on patient per chart notes. Rozina will call patient to discuss. documented in this encounter [facility] 12-30-2024 Telephone encounter Note Patient calling [...] have any questions, you can call Nurse salesperson automobiles back. [facility] 12-30-2024 Miscellaneous Notes Patient calling with [...] have any questions, you can call Nurse salesperson automobiles back. documented in this encounter [facility] 12-29-2024 Note HNO ID: [id number] Author: RIGOBERTO GOULD MD Service: ? Author Type: Physician Type: Progress Notes Filed: 12/29/2024 15:18 Note Text: Patient presents with: ER F/U Hospital F/U HPI: Patient presents today for office visit for follow up. Was in [facility] ER on 12/22/24 had butler placed and 415 cc of urine drained. Has not seen urology yet because they didn't take his insurance. Was given rocephin in ER. Currently on cefdinir has 3 days left. States that has not urinated at all since left [facility] that day. He normally urinates daily. [...] 1 tablet by mouth every morning. Insulin Ridge, Disposable, (BD ULTRA-FINE GOLDY PEN NEEDLE) 32 [...] GARRET (acute kidney injury) 03/24/2019 Ankylosing spondylitis ([facility]) CAD (coronary artery disease) Cellulitis Chronic combined systolic and diastolic CHF (congestive heart failure) ([facility]) 03/24/2019 CKD (chronic kidney disease) stage 3, GFR 30-59 ml/min ([facility]) 03/24/2019 Constipation Diabetes ([facility]) Gout High phosphate levels 03/24/2019 History of [...] NSTEMI (non-ST elevated myocardial infarction) (HCC) 03/12/2017 [facility] admit Osteoarthritis Transition of care performed with sharing of clinical summary 04/08/2019 Admit [facility] 03/21/19-03/22/19 Discharge diagnoses chronic kidney disease with worsening creatinine, acute kidney injury Hypokalemia Toxic encephalopathy secondary to Flexeril overusage Type 2 diabetes Ischemic cardiomyopathy Coronary artery disease Ligamental cervical neck strain and acute Pulmonary hypertension Hypertension Pyuria Preadmit: to [facility] ED with slurred speech, lethargy. PAST [...] 09/07/17 Jensen Downey (more content not included)... [facility] 12-29-2024 History of Presen t illness Narrative Patient presents with: ER F/U Hospital F/U HPI: Patient presents today for office visit for follow up. Was in [facility] ER on 12/22/24 had butler placed and 415 cc of urine drained. Has not seen urology yet because they didn't take his insurance. Was given rocephin in ER. Currently on cefdinir has 3 days left. States that has not urinated at all since left [facility] that day. He normally urinates daily. [...] 1 tablet by mouth every morning. Insulin Ridge, Disposable, (BD ULTRA-FINE GOLDY PEN NEEDLE) 32 [...] Acute on chronic diastolic congestive heart failure ([facility]) 07/14/2018 GARRET (acute kidney injury) 03/24/2019 GARRET (acute kidney injury) 03/24/2019 Ankylosing spondylitis ([facility]) CAD (coronary artery disease) Cellulitis Chronic combined systolic and diastolic CHF (congestive heart failure) ([facility]) 03/24/2019 CKD (chronic kidney disease) stage 3, GFR 30-59 ml/min ([facility]) 03/24/2019 Constipation Diabetes ([facility]) Gout High phosphate levels 03/24/2019 History of [...] valve calcifi NSTEMI (non-ST elevated myocardial infarction) ([facility]) 03/12/2017 [facility] admit Osteoarthritis Transition of care performed with sharing of clinical summary 04/08/2019 Admit [facility] 03/21/19-03/22/19 Discharge diagnoses chronic kidney disease with worsening creatinine, acute kidney injury Hypokalemia Toxic encephalopathy secondary to Flexeril overusage Type 2 diabetes Ischemic cardiomyopathy Coronary artery disease Ligamental cervical neck strain and acute Pulmonary hypertension Hypertension Pyuria Preadmit: to [facility] ED with slurred speech, lethargy. PAST [...] Rigoberto Gould MD documented in this encounter [facility] 12-26-2024 Telephone encounter Note Called and left a voicemail for the Patient to call back and ask for a nurse to receive the providers message. Bryce Landin RN [facility] 12-26-2024 Miscellaneous Notes Called and left a voicemail for the Patient to call back and ask for a nurse to receive the providers message. Bryce Landin RN If he normally puts out regular urine, needs evaluated in the er to assess if he is acutely retaining. reports pt has not urinated since Sunday, when butler was discontinued at [facility]. 5 days. reports pt was in [facility] 2 days: at first had vomiting. Pt had missed dialysis 2 days prior to going to [facility]. [facility] discovered pt was overloaded with fluids since missed dialysis, and pt had a UTI. reports pt's urine was brown. [facility] also decreased bumex for pt to omit on dialysis days. Dr. Jackson changed those orders for pt to take bumex daily now. states this may have contributed to why patient hasn't urinated since Sunday, plus a lot of fluid was removed during dialysis on Sun, Sun, & , and the UTI. A-fib was also discovered during stay at [facility]. Pt has appt with cardiology today to follow up on this. Pt plans to return to [facility] ER if develops urine symptoms: pain, bladder distension, bloating. Pt is not having any of these symptoms today. In the meantime he's asking pcp to send referral to [facility] urologist. Pt is willing to travel since [place] does not have a urology doctor. Asking pcp if you can place the referral. Answer Assessment - Initial Assessment Questions 1. SYMPTOM: Pt has not urinated since Sunday- [facility] removed butler per pt request on Sunday. reports there was a lot of urine in the butler when they removed it. Pt also has UTI and [facility] gave IV AB's and sent pt home with AB pills. Pt is taking these. Pt gets dialysis TTSat. Prior to ER visit he spent 2 days at [facility] for vomiting, he was overloaded with fluid b/c he missed dialysis 2 days- [facility] did the dialysis during stay. This past Sat he had dialysis- also had Tue and Thurs. [facility] also found a-fib during hospital stay. Pt has appt with uniform attendant today to follow up on a-fib. Pt [...] the fluid was removed during dialysis on Sat, Sun, & , which is why patient is not having symptoms. [facility]- Dr. Allen's office will not accept pts insurance but [facility] ER does, and instructed pt to return if any bladder symptoms. Pt plans to return to ER if having any urinary concerns: pressure, bloating, distention, pain. Pt is not having these symptoms today. Pt only contacted pcp office to ask for referral to urologist at [facility], since Dr. Allen does not accept his insurance. Pt wants to schedule appt with [facility] urologist to figure out why he has not urinated since Sunday. reports patient has seen urologist at [facility] in the past. Asking if pcp can write a referral so he can schedule appt with urologist. Protocols used: Urinary [id number] documented in this encounter [facility] 12-26-2024 Telephone encounter Note If he normally puts out regular urine, needs evaluated in the er to assess if he is acutely retaining. [facility] 12-26-2024 Telephone encounter Note reports pt has not urinated since Sunday, when butler was discontinued at [facility]. 5 days. reports pt was in [facility] 2 days: at first had vomiting. Pt had missed dialysis 2 days prior to going to [facility]. [facility] discovered pt was overloaded with fluids since missed dialysis, and pt had a UTI. reports pt's urine was brown. [facility] also decreased bumex for pt to omit on dialysis days. Dr. Jackson changed those orders for pt to take bumex daily now. states this may have contributed to why patient hasn't urinated since Sunday, plus a lot of fluid was removed during dialysis on Sat, Sun, & , and the UTI. A-fib was also discovered during stay at [facility]. Pt has appt with cardiology today to follow up on this. Pt plans to return to [facility] ER if develops urine symptoms: pain, bladder distension, bloating. Pt is not having any of these symptoms today. In the meantime he's asking pcp to send referral to [facility] urologist. Pt is willing to travel since [place] does not have a urology doctor. Asking pcp if you can place the referral. Answer Assessment - Initial Assessment Questions 1. SYMPTOM: Pt has not urinated since Sunday- [facility] removed butler per pt request on Sunday. reports there was a lot of urine in the butler when they removed it. Pt also has UTI and [facility] gave IV AB's and sent pt home with AB pills. Pt is taking these. Pt gets dialysis TTSat. Prior to ER visit he spent 2 days at [facility] for vomiting, he was overloaded with fluid b/c he missed dialysis 2 days- [facility] did the dialysis during stay. This past Sat he had dialysis- also had Tue and Thurs. [facility] also found a-fib during hospital stay. Pt has appt with uniform attendant today to follow up on a-fib. Pt [...] is why patient is not having symptoms. [facility]- Dr. Allen's office will not accept pts insurance but [facility] ER does, and instructed pt to return if any bladder symptoms. Pt plans to return to ER if having any urinary concerns: pressure, bloating, distention, pain. Pt is not having these symptoms today. Pt only contacted pcp office to ask for referral to urologist at [facility], since Dr. Allen does not accept his insurance. Pt wants to schedule appt with [facility] urologist to figure out why he has not urinated since Sunday. reports patient has seen urologist at [place] in the past. Asking if pcp can write a referral so he can schedule appt with urologist. Protocols used: Urinary Vkuuvsab-FEUGZ-RV [facility] 12-17-2024 Note HNO ID: [id number] Author: NUPUR DE LA ROSA MD Service: [...] PAST MEDICAL HISTORY Diagnosis Date Ankylosing spondylitis ([facility]) CAD (coronary artery disease) Cellulitis Chronic combined systolic and diastolic CHF (congestive heart failure) ([facility]) 03/24/2019 CKD (chronic kidney disease) stage 3, GFR 30-59 ml/min ([facility]) 03/24/2019 Constipation Diabetes ([facility]) ESRD (end stage renal disease) ([facility]) Gout History of coronary artery bypass graft [...] valve calcifi NSTEMI (non-ST elevated myocardial infarction) ([facility]) 03/12/2017 [facility] admit Osteoarthritis PAST SURGICAL HISTORY Procedure [...] La [place] M.D. Department of Orthopaedic Surgery [facility] 12-16-2024 Note HNO ID: [id number] Author: YANET CEDENO RN Service: ? Author Type: Registered Nurse Type: Progress Notes Filed: 12/16/2024 13:26 Note Text: Command And Control Officer Management TCM Outreach PCP Update / Actionable Items N/A - No specialty updates needed Patient Source: Jsz-gz-Iuocehw (OON) Discharge Initial outreach: Non-Value Based Patient Outreach Summary: LMOM Patient discharged from [facility] Discharge date: No info Admitted for: No info Readmission Risk: No info Value-Based Contract: Non-Value Based Contact: Contact made with patient: No - Second unsuccessful attempt. Yanet Phelps RN December 16, 2024 1:26 PM [facility] 12-16-2024 History of Presen t illness Narrative Command And Control Officer Management TCM Outreach PCP Update / Actionable Items N/A - No specialty updates needed Patient Source: Nih-le-Dbqcekw (OON) Discharge Initial outreach: Non-Value Based Patient Outreach Summary: LMOM Patient discharged from [facility] Discharge date: No info Admitted for: No info Readmission Risk: No info Value-Based Contract: Non-Value Based Contact: Contact made with patient: No - Second unsuccessful attempt. Yanet Phelps RN December 16, 2024 1:26 PM documented in this encounter [facility] 12-16-2024 Note Patient Outreach (AM [facility]) MAURI QUINONES ([id number]) 1955 Date Time Provider Department 12/16/24 Y[place]EDENO [facility] [place] visit today, we recorded the following information about you: Yanet Cedeno RN 12/16/2024 1:26 PM Signed Command And Control Officer Management TCM Outreach PCP Update / Actionable Items N/A - No specialty updates needed Patient Source: Pii-dr-Pddcrbm (OON) Discharge Initial outreach: Non-Value Based Patient Outreach Summary: LMOM Patient discharged from [facility] Discharge date: No info Admitted for: [...] tablet by mouth every morning. - Insulin Ridge, Disposable, (BD ULTRA-FINE GOLDY PEN NEEDLE) 32 [...] not elsewhere clas*06/04/202012/02/ (more content not included)... [facility] 12-15-2024 Note HNO ID: [id number] Author: KRISTAN FONTANEZ RN Service: ? Author Type: Registered Nurse Type: Progress Notes Filed: 12/16/2024 13:08 Note Text: Summary: [facility] Discharge Outreach -Initial -OON Command And Control Officer Management TCM Outreach PCP Update / Actionable Items N/A N/A - No specialty updates needed Patient Source: Wmj-zy-Inxngti (OON) Discharge Initial outreach: Non-Value Based Patient Outreach Summary: NALM x 3 -I called the patient twice again today and the spouse to no avail. Patient discharged from: [facility] Discharge date: 12/13/24 Admitted for: Not listed Readmission Risk: Not listed Value-Based Contract: Non-Value Based Contact: Contact made with patient: No - Second unsuccessful attempt. Kristan Fontanez RN December 16, 2024 1:07 PM Command And Control Officer Management TCM Outreach PCP Update / Actionable Items N/A N/A - No specialty updates needed Patient Source: Lbr-xx-Chdgseq (OON) Discharge Initial outreach: Non-Value Based Patient Outreach Summary: NALM x2 Patient discharged from: [facility] Discharge date: 12/13/24 Admitted for: Not listed Readmission Risk: Not listed Value-Based Contract: Non-Value Based Contact: Contact made with patient: No - Next outreach attempt scheduled for the next day. Kristan Fontanez RN December 15, 2024 3:57 PM [facility] 12-15-2024 History of Presen t illness Narrative Summary: [facility] Discharge Outreach -Initial -OON Command And Control Officer Management TCM Outreach PCP Update / Actionable Items N/A N/A - No specialty updates needed Patient Source: Dpk-hb-Ocygldq (OON) Discharge Initial outreach: Non-Value Based Patient Outreach Summary: NALM x 3 -I called the patient twice again today and the spouse to no avail. Patient discharged from: [facility] Discharge date: 12/13/24 Admitted for: Not listed Readmission Risk: Not listed Value-Based Contract: Non-Value Based Contact: Contact made with patient: No - Second unsuccessful attempt. Kristan Fontanez RN December 16, 2024 1:07 PM Command And Control Officer Management TCM Outreach PCP Update / Actionable Items N/A N/A - No specialty updates needed Patient Source: Wku-zp-Gsoszuo (OON) Discharge Initial outreach: Non-Value Based Patient Outreach Summary: NALM x2 Patient discharged from: [facility] Discharge date: 12/13/24 Admitted for: Not listed Readmission Risk: Not listed Value-Based Contract: Non-Value Based Contact: Contact made with patient: No - Next outreach attempt scheduled for the next day. Kristan Fontanez RN December 15, 2024 3:57 PM documented in this encounter [facility] 12-15-2024 Note Patient Outreach [place] [facility] MAURI QUINONES ([id number]) 1955 Date Time Provider Department 12/15/24 KRISTAN FONTANEZ [facility] [place] your visit today, we recorded the following information about you: Kristan Fontanez RN 12/16/2024 1:08 PM Signed Command And Control Officer Management TCM Outreach PCP Update / Actionable Items N/A N/A - No specialty updates needed Patient Source: Vhg-iw-Emxohgm (OON) Discharge Initial outreach: Non-Value Based Patient Outreach Summary: NALM x 3 -I called the patient twice again today and the spouse to no avail. Patient discharged from: [facility] Discharge date: 12/13/24 Admitted for: Not listed Readmission Risk: Not listed Value-Based Contract: Non-Value Based Contact: Contact made with patient: No - Second unsuccessful attempt. Kristan Fontanez RN December 16, 2024 1:07 PM Command And Control Officer Management TCM Outreach PCP Update / Actionable Items N/A N/A - No specialty updates needed Patient Source: Pnu-ru-Bmlhesa (OON) Discharge Initial outreach: Non-Value Based Patient Outreach Summary: NALM x2 Patient discharged from: [facility] Discharge date: 12/13/24 Admitted for: Not listed [...] for Visit: Transition Of Care [4074] Cmt: [facility] Initial Hospital Discharge-OON Prescriptions as of 12/19/2024 [...] tablet by mouth every morning. - Insulin Ridge, Disposable, (BD ULTRA-FINE GOLDY PEN NEEDLE) 32 [...] 12/02/2021 [facility] (acute kidney injury) (HCC) [N17.9] (more content not included)... [facility] 12-13-2024 Discharge summary Note Date/Time December 13, 2024 1:39pm [facility] Medical Records Department [address] [place] [address] Discharge Summary 12/13/24 1333 MR#: [id number] Acct: [id number] Name: MAURI QUINONES Rep #:[id number] : 1955 69 From: Sukumar Hansen PCP: Dr. Rigoberto Gould MD Status:ADM I N Location: [place] [id number] Providers Date of Admission: 12/11/24 Date of [...] end-stage renal disease 12/13: Discussed with the chain carrier Dr. De La Rosa. Follow-up pulmonary clinic [...] and patient and denied history of A-fib. florist manager shows A-fib 2. Patient was seen by uniform attendant. #8. CAD: Status post CABG (S/P surgery with CARTY to LAD, SVG to OM system, and SVG to PDA in March 2017 at [facility]), if able to tolerate will continue [...] 71.5 H, Lymph % (Auto) 10.5 L, [place] % (Auto) 15.1 H, Eos % (Auto) [...] Self Care Charges/Coding Visit Charges Inpatient E&M: 89358 Disch Hosp >30min 12/13/24 1339 <Electronically signed by Sukumar Restrepo MD> Cosigner Signature (if applicable): CC: Dr. Sukumar Restrepo MD; Dr. Rigoberto Gould MD~ Signed [facility] Work Phone: 1(715) 108-337204-19-2025 Discharge summary Author Sukumar Restrepo [facility] Note Date/Time December 13, 2024 1:3 3pm [facility] Medical Records Department [address] [place] [address] Instructions for Home/Discharge Instructions 12/13/24 0935 MR#: [id number] Acct: [id number] Name: MAURI QUINONES Rep #:[id number] : [...] Care 12/13/24 1333<Electronically signed by Sukumar Restrepo MD>Sukuamr Restrepo MD CC: Dr. Mary Jo Granados MD; Dr. Nata Jackson MD; Dr. Rigoberto Gould MD ~ Signed [facility] Work Phone: 1(202) 435-276804-19-2025 Discharge summary [facility] Medical Records Department [facility] [place] [address] Discharge Summary 12/13/24 1333 MR#: [id number] Acct: [id number] Name: MAURI QUINONES Rep #:[id number] : 1955 69 From: Sukumar Hansen PCP: Dr. Rigoberto Gould MD Status:ADM I N Location: [place] [address] Providers Date of Admission: 12/11/24 Date of [...] end-stage renal disease 12/13: Discussed with the chain carrier Dr. De La Rosa. Follow-up pulmonary clinic [...] and patient and denied history of A-fib. florist manager shows A-fib 2. Patient was seen by uniform attendant. #8. CAD: Status post CABG (S/P surgery with CARTY to LAD, SVG to OM system, and SVG to PDA in March2017 at [facility]), if able to tolerate will continue [...] 71.5 H, Lymph % (Auto) 10.5 L, [place] % (Auto) 15.1 H, Eos % (Auto) [...] Self Care Charges/Coding Visit Charges Inpatient E&M: 34996 Disch Hosp >30min 12/13/24 1339 Cosigner Signature (if applicable): CC: Dr. Sukumar Restrepo MD; Dr. Rigoberto Gould MD~ Signed [facility]04-19-2025 Discharge summary [facility] Medical Records Department [address] [place] [address] Instructions for Home/Discharge Instructions 12/13/24 0935 MR#: [id number] Acct: [id number] Name: MAURI QUINONES Rep #:[id number] : [...] Jackson MD; Dr. Rigoberto Gould MD ~ [facility]04-19-2025 [facility] Medical Records Department [address] [place] [address] Discharge Summary 12/13/24 1333 MR#: [id number] Acct: [id number] Name: MAURI QUINONES Rep #: [id number] : 1955 69 From: Sukumar Restrepo MD PCP: Dr. Rigoberto Gould MD Status:ADM IN [id number] Providers Date of Admission: 12/11/24 Date of [...] end-stage renal disease 12/13: Discussed with the chain carrier Dr. De La Rosa. Follow-up pulmonary clinic [...] and patient and denied history of A-fib. florist manager shows A-fib 2. Patient was seen by uniform attendant. #8. CAD: Status post CABG (S/P surgery with CARTY to LAD, SVG to OM system, and SVG to PDA in March 2017 at [facility]), if able to tolerate will continue [...] home regimen including hy (more content not included)...[facility]04-19-2025 Progress note Author Jensen Claire [facility] Note Date/Time December 13, 2024 9:5 4am [facility] Medical Records Department [address] [place] [address] Progress Note - Cardiology 12/13/24 0944 MR#: [id number] Acct: [id number] Name: MAURI QUINONES Rep #:[id number] : 1955 69 From: Jensen Claire MD PCP: Dr. Rigoberto Gould MD Status:ADM I N Location: [place] [address] Subjective Subjective Patient reports that he completed [...] 71.5 H, Lymph % (Auto) 10.5 L, [place] % (Auto) 15.1 H, Eos % (Auto) [...] 71.5 H, Lymph % (Auto) 10.5 L, [place] % (Auto) 15.1 H, Eos % (Auto) [...] in place. Charges/Coding Visit Charges Inpatient E&M: 06786 Subs Hosp L3 12/13/24953 <Electronically signed by Jensen Claire MD> Cosigner Signature (if applicable): CC: ~ Signed [facility] Work Phone: 1(924) 488-496404-19-2025 Progress note [facility] Medical Records Department [address] [place] [address] Progress Note - Cardiology 12/13/2444 MR#: [id number] Acct: [id number] Name: MAURI QUINONES Rep #:[id number] : 1955 69 From: Jensen Claire MD PCP: Dr. Rigoberto Gould MD Status:ADM I N Location: [place] [address] Subjective Subjective Patient reports that he completed [...] 71.5 H, Lymph % (Auto) 10.5 L, [place] % (Auto) 15.1 H, Eos % (Auto) [...] 71.5 H, Lymph % (Auto) 10.5 L, [place]% (Auto) 15.1 H, Eos % (Auto) 2.1, [...] in place. Charges/Coding Visit Charges Inpatient E&M: 09100 Subs Hosp L3 12/13/24 0954 Cosigner Signature (if applicable): CC: ~ Signed [facility]04-19-2025 Consult note Author Lauren Grant tr [facility] Note Date/Time December 13, 2024 1:5 2am [facility] Medical Records Department [address] [place] [address] Consultation - Nephrology 12/12/24 0935 MR#: [id number] Acct: [id number] Name: MAURI QUINONES Rep #:[id number] : 1955 69 From: Lauren macario MD PCP: Dr. Rigoberto Gould MD Status:ADM I N Location: [place] [address] Assessment & Plan Assessment/Plan (1) End-stage renal [...] dialysis management. ESRD. Patient usually dialyzes at [facility] on TTS schedule. Patient had missed 2 [...] some urine, and there is no LUTS. [facility] Medical History C. difficile diarrhea Anemia History of GI bleed Pure hypercholesterolemia Ischemic cardiomyopathy Essential hypertension Renal insufficiency Ankylosing spondylitis CAD (coronary artery disease) Overweight (BMI 25.0-29.9) Leg edema Leg swelling Acute systolic heart failure Bradycardia Biliary pleural effusion HTN (hypertension) Ventricular tachyarrhythmia Atherosclerosis of holy cross co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 pectoris Pulmonary HTN Cardiomyopathy [...] (Auto) 77.3 H, Lymph % (Auto) 7.7L, [place] % (Auto) 13.0 H, Eos % (Auto) [...] (Auto) 75.1 H, Lymph % (Auto) 8.4L, [place] % (Auto) 14.7 H, Eos % (Auto) [...] 12/11/24 15:10 IMPRESSION: CHF exacerbation. Reading [facility] 12/13/24 0152 <Electronically signed by Lauren Mcintyre MD> Cosigner Signature (if applicable): CC: Dr. Rigoberto Gould MD~ Signed [facility] Work Phone: 1(885) 601-423104-19-2025 Consult note [facility] Medical Records Department [address] [place] [address] Consultation - Nephrology 12/12/24 0935 MR#: [id number] Acct: [id number] Name: MAURI QUINONES Rep #:[id number] : 1955 69 From: Lauren macario MD PCP: Dr. Rigoberto Gould MD Status:ADM I N Location: [place] [address] Assessment & Plan Assessment/Plan (1) End-stage renal [...] dialysis management. ESRD. Patient usually dialyzes at [facility] on TTS schedule. Patient had missed 2 [...] some urine, and there is no LUTS. [facility] Medical History C. difficile diarrhea Anemia History of GI bleed Pure hypercholesterolemia Ischemic cardiomyopathy Essential hypertension Renal insufficiency Ankylosing spondylitis CAD (coronary artery disease) Overweight (BMI 25.0-29.9) Leg edema Leg swelling Acute systolic heart failure Bradycardia Biliary pleural effusion HTN (hypertension) Ventricular tachyarrhythmia Atherosclerosis of holy cross co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 pectoris Pulmonary HTN Cardiomyopathy [...] (Auto) 77.3 H, Lymph % (Auto) 7.7L, [place] % (Auto) 13.0 H, Eos % (Auto) [...] (Auto) 75.1 H, Lymph % (Auto) 8.4L, [place] % (Auto) 14.7 H, Eos % (Auto) [...] 12/11/24 15:10 IMPRESSION: CHF exacerbation. Reading Location: [facility] 12/13/24 0152 Cosigner Signature (if applicable): CC: Dr. Rigoberto Gould MD~ Signed [facility]04-18-2025 Progress note Author Sukumar Restrepo [facility] Note Date/Time December 12, 2024 3:0 2pm [facility] Medical Records Department [address] [place] [address] Progress Note - Hospitalist 12/12/24 0759 MR#: [id number] Acct: [id number] Name: MAURI QUINONES Rep #:[id number] : 1955 69 From: Sukumar Hansen PCP: Dr. Rigoberto Gould MD Status:ADM I N Location: [place] [address] Reason for Visit Reason for Visit: Diagnoses [...] (Auto) 77.3 H, Lymph % (Auto) 7.7L, [place] % (Auto) 13.0 H, Eos % (Auto) [...] (Auto) 75.1 H, Lymph % (Auto) 8.4L, [place] % (Auto) 14.7 H, Eos % (Auto) [...] 12/11/24 15:10 IMPRESSION: CHF exacerbation. Reading Location: [facility] Rhythm Strip Rhythm Strip: A-fib Rate: 90 [...] and patient and denied history of A-fib. florist manager shows A-fib 2. Patient was seen by uniform attendant. #8. CAD: Status post CABG (S/P surgery with CARTY to LAD, SVG to OM system, and SVG to PDA in March 2017 at [facility]), if able to tolerate will continue [...] intubation status. Charges/Coding Visit Charges Inpatient E&M: 60509 Subs Hosp L2 12/12/24 1507 <Electronically signed by Sukumar Restrepo MD> Cosigner Signature (if applicable): CC: ~ Signed [facility] Work Phone: 1(334) 497-785604-18-2025 Progress note [facility] Medical Records Department [address] [place] [address] Progress Note - Hospitalist 12/12/24 0759 MR#: [id number] Acct: [id number] Name: MAURI QUINONES Rep #:[id number] : 1955 69 From: Sukumar Hansen PCP: Dr. Rigoberto Gould MD Status:ADM I N Location: [place] [address] Reason for Visit Reason for Visit: Diagnoses [...] (Auto) 77.3 H, Lymph % (Auto) 7.7L, [place] % (Auto) 13.0 H, Eos % (Auto) [...] (Auto) 75.1 H, Lymph % (Auto) 8.4L, [place] % (Auto) 14.7 H, Eos % (Auto) [...] 12/11/24 15:10 IMPRESSION: CHF exacerbation. Reading Location: [facility] Rhythm Strip Rhythm Strip: A-fib Rate: 90 [...] and patient and denied history of A-fib. florist manager shows A-fib 2. Patient was seen by uniform attendant. #8. CAD: Status post CABG (S/P surgery with CARTY to LAD, SVG to OM system, and SVG to PDA in March2017 at [facility]), if able to tolerate will continue [...] intubation status. Charges/Coding Visit Charges Inpatient E&M: 44254 Subs Hosp L2 12/12/24 1502 Cosigner Signature (if applicable): CC: ~ Signed [facility]04-18-2025 Progress note Author Jensen Claire [facility] Note Date/Time December 12, 2024 9:1 3am [facility] Medical Records Department [address] [place] [address] Progress Note - Cardiology 12/12/24 0859 MR#: [id number] Acct: [id number] Name: MAURI QUINONES Rep #:[id number] : 1955 69 From: Jensen Claire MD PCP: Dr. Rigoberto Gould MD Status:ADM I N Location: [place] [address] Subjective Subjective Patient is resting comfortably and [...] (Auto) 77.3 H, Lymph % (Auto) 7.7L, [place] % (Auto) 13.0 H, Eos % (Auto) [...] (Auto) 75.1 H, Lymph % (Auto) 8.4L, [place] % (Auto) 14.7 H, Eos % (Auto) [...] 77.3 H, Lymph % (Auto) 7.7 L, [place] % (Auto) 13.0 H, Eos % (Auto) [...] 75.1 H, Lymph % (Auto) 8.4 L, [place] % (Auto) 14.7 H, Eos % (Auto) [...] 12/11/24 15:10 IMPRESSION: CHF exacerbation. Reading Location: [facility] Physical Exam Const alert and oriented x3 [...] The last echocardiogram we have is from [facility] in 2021 and at that [...] is available. Charges/Coding Visit Charges Inpatient E&M: 17395 Subs Hosp L2 12/12/24 0913 <Electronically signed by Jensen Claire MD> Cosigner Signature (if applicable): CC: ~ Signed [facility] Work Phone: 1(519) 516-423204-18-2025 Progress note [facility] Medical Records Department [facility] [place] [address] Progress Note - Cardiology 12/12/24 0859 MR#: [id number] Acct: [id number] Name: MAURI QUINONES Rep #:[id number] : 1955 69 From: Jensen Claire MD PCP: Dr. Rigoberto Gould MD Status:ADM I N Location: [place] [address] Subjective Subjective Patient is resting comfortably and [...] (Auto) 77.3 H, Lymph % (Auto) 7.7L, [place] % (Auto) 13.0 H, Eos % (Auto) [...] (Auto) 75.1 H, Lymph % (Auto) 8.4L, [place] % (Auto) 14.7 H, Eos % (Auto) [...] 77.3 H, Lymph % (Auto) 7.7 L, [place] % (Auto) 13.0 H, Eos % (Auto) [...] 75.1 H, Lymph % (Auto) 8.4 L, [place] % (Auto) 14.7 H, Eos % (Auto) [...] 12/11/24 15:10 IMPRESSION: CHF exacerbation. Reading Location: [facility] Physical Exam Const alert and oriented x3 [...] The last echocardiogram we have is from [facility] in 2021 and at that [...] is available. Charges/Coding Visit Charges Inpatient E&M: 17124 Subs Hosp L2 12/12/24 0927 Cosigner Signature (if applicable): CC: ~ Signed [facility]04-17-2025 Consult note Author Jensen Claire [facility] Note Date/Time December 11, 2024 6:1 5pm [facility] Medical Records Department [address] [place] [address] Consultation - Cardiology 12/11/24 0917 MR#: [id number] Acct: [id number] Name: MAURI QUINONES Rep #:[id number] : [...] nephrology is been consulted for urgent dialysis. [facility] Medical History C. difficile diarrhea Anemia History of GI bleed Pure hypercholesterolemia Ischemic cardiomyopathy Essential hypertension Renal insufficiency Ankylosing spondylitis CAD (coronary artery disease) Overweight (BMI 25.0-29.9) Leg edema Leg swelling Acute systolic heart failure Bradycardia Biliary pleural effusion HTN (hypertension) Ventricular tachyarrhythmia Atherosclerosis of holy cross co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 pectoris Pulmonary HTN Cardiomyopathy [...] Applicable: No Charges/Coding Visit Charges Inpatient E&M: 11179 Init Hosp L3 Objective Data Vital Signs: [...] (Auto) 77.3 H, Lymph % (Auto) 7.7L, [place] % (Auto) 13.0 H, Eos % (Auto) [...] 77.3 H, Lymph % (Auto) 7.7 L, [place] % (Auto) 13.0 H, Eos % (Auto) [...] 12/11/24 15:10 IMPRESSION: CHF exacerbation. Reading Location[facility] 12/11/241814 <Electronically signed by Jensen Claire MD> Cosigner Signature (if applicable): CC: Dr. Rigoberto Gould MD~ Signed [facility] Work Phone: 1(206) 886-726904-17-2025 History and physical note Author Mary Jo Granados [facility] Note Date/Time December 11, 2024 5:1 8pm [facility] Medical Records Department [address] [place] [address] H&P Exam - Hospitalist 12/11/24 7442 MR#: [id number] Acct: [id number] Name: MAURI QUINONES Rep #:[id number] : [...] Former tobacco use who presents to the [facility] ED on 12/11/24 with history of [...] and no concern for peaked T waves. [facility] Medical History C. difficile diarrhea Anemia History of GI bleed Pure hypercholesterolemia Ischemic cardiomyopathy Essential hypertension Renal insufficiency Ankylosing spondylitis CAD (coronary artery disease) Overweight (BMI 25.0-29.9) Leg edema Leg swelling Acute systolic heart failure Bradycardia Biliary pleural effusion HTN (hypertension) Ventricular tachyarrhythmia Atherosclerosis of holy cross co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 pectoris Pulmonary HTN Cardiomyopathy [...] (Auto) 77.3 H, Lymph % (Auto) 7.7L, [place] % (Auto) 13.0 H, Eos % (Auto) [...] 12/11/24 15:10 IMPRESSION: CHF exacerbation. Reading Location[facility] Assessment & Plan Assessment/Plan (1) Acute [...] Former tobacco use who presents to the [facility] ED on 12/11/24 with history of [...] SVG to PDA in March 2017 at [facility]), if able to tolerate will continue [...] 16 minutes. Charges/Coding Visit Charges Inpatient E&M: 27003 Init Hosp L3 Procedures Hospitalists Procedures: 03893 Advncd Care Plan 30 Min 12/11/24 1718 <Electronically signed by Mary Jo Granados MD> Cosigner Signature (if applicable): CC: Dr. Mary Jo Granados MD; Dr. Rigoberto Gould MD~ Signed [facility] Work Phone: 1(325) 462-990204-17-2025 Discharge summary Author Rafaclay Felder [facility] Note Date/Time December 11, 2024 4:4 3pm [facility] Medical Records Department [address] [place] [address] Emergency Department Summary 12/11/24 MR#: [id number] Acct: [id number] Name: MAURI QUINONES Rep #:[id number] : [...] similar symptoms: Yes Recent Illness/Hospitalization: No PFSH [facility] Medical History C. difficile diarrhea Anemia History of GI bleed Pure hypercholesterolemia Ischemic cardiomyopathy Essential hypertension Renal insufficiency Ankylosing spondylitis CAD (coronary artery disease) Overweight (BMI 25.0-29.9) Leg edema Leg swelling Acute systolic heart failure Bradycardia Biliary pleural effusion HTN (hypertension) Ventricular tachyarrhythmia Atherosclerosis of holy cross co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 pectoris Pulmonary HTN Cardiomyopathy [...] 77.3 H Lymph % (Auto) 7.7 L [place] % (Auto) 13.0 H Eos % (Auto) [...] 12/11/24 15:10 IMPRESSION: CHF exacerbation. Reading Location: [facility] EKG Initial EKG: Attestation: I personally reviewed and interpreted this EKG as follows: Interpretation: Atrial Fibrillation (Rate is 89. There is evidence of right bundle branch block. QRS duration 162 ms. QT duration 128 ms. [place] of the right. There is no acute [...] Acute hyperkalemia,Hyponatremia Disposition Disposition: Acute Care Hospital [facility] What to do if you have Problems For any increased pain, shortness of breath, bleeding, nausea or vomiting, chestpain, or any unexpected problems, contact your Primary Care Provider. Call [facility] ([phone]) or report to the closest Emergency Room. Call 911 if necessary. 12/11/24 1643 <Electronically signed by Rafa Felder MD> Cosigner Signature (if applicable): CC: Dr. Rigoberto Gould MD ~ Signed [facility] Work Phone: [phone]) 620-257904-17-2025 Discharge summary Author Rafa Felder [facility] Note Date/Time December 11, 2024 4:4 3pm [facility] Medical Records Department [address] [place] [address] Emergency Department Summary 12/11/24 MR#: [id number] Acct: [id number] Name: MAURI QUINONES Rep #:[id number] : [...] 09. He did not go to dialysis onT and did not go to his dialysis [...] effusion HTN (hypertension) Ventricular tachyarrhythmia Atherosclerosis of holy cross co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 pectoris Pulmonary HTN Cardiomyopathy [...] 77.3 H Lymph % (Auto) 7.7 L [place] % (Auto) 13.0 H Eos % (Auto) [...] 12/11/24 15:10 IMPRESSION: CHF exacerbation. Reading Location: [facility] EKG Initial EKG: Attestation: I personally reviewed and interpreted this EKG as follows: Interpretation: Atrial Fibrillation (Rate is 89. There is evidence of right bundle branch block. QRS duration 162 ms. QT duration 128 ms. [place] of the right. There is no acute [...] Acute hyperkalemia,Hyponatremia Disposition Disposition: Acute Care Hospital [facility] What to do if you have Problems For any increased pain, shortness of breath, bleeding, nausea or vomiting, chestpain, or any unexpected problems, contact your Primary Care Provider. Call [facility] ([phone]) or report to the closest Emergency Room. Call 911 if necessary. 12/11/24 1643 <Electronically signed by Rafa Felder MD> Cosigner Signature (if applicable): CC: Dr. Rigoberto Gould MD ~ Signed [facility] Work Phone: 1(548) 890-942304-17-2025 Consult note [facility] Medical Records Department [address] [place] [address] Consultation - Cardiology 12/11/24 2731 MR#: [id number] Acct: [id number] Name: MAURI QUINONES Rep #:[id number] : [...] nephrology is been consulted for urgent dialysis. [facility] Medical History C. difficile diarrhea Anemia History of GI bleed Pure hypercholesterolemia Ischemic cardiomyopathy Essential hypertension Renal insufficiency Ankylosing spondylitis CAD (coronary artery disease) Overweight (BMI 25.0-29.9) Leg edema Leg swelling Acute systolic heart failure Bradycardia Biliary pleural effusion HTN (hypertension) Ventricular tachyarrhythmia Atherosclerosis of holy cross co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 pectoris Pulmonary HTN Cardiomyopathy [...] Applicable: No Charges/Coding Visit Charges Inpatient E&M: 19470 Init Hosp L3 Objective Data Vital Signs: [...] (Auto) 77.3 H, Lymph % (Auto) 7.7L, [place] % (Auto) 13.0 H, Eos % (Auto) [...] 77.3 H, Lymph % (Auto) 7.7 L, [place] % (Auto) 13.0 H, Eos % (Auto) [...] 12/11/24 15:10 IMPRESSION: CHF exacerbation. Reading [facility] 12/11/241814 Cosigner Signature (if applicable): CC: Dr. Rigoberto Gould MD~ Signed [facility]04-17-2025 History and physical note [facility] Medical Records Department [address] [place] [address] H&P Exam - Hospitalist 12/11/24 1651 MR#: [id number] Acct: [id number] Name: MAURI QUINONES Farhana Rep #:[id number] [...] Former tobacco use who presents to the [facility] ED on 12/11/24 with history of [...] and no concern for peaked T waves. [facility] Medical History C. difficile diarrhea Anemia History of GI bleed Pure hypercholesterolemia Ischemic cardiomyopathy Essential hypertension Renal insufficiency Ankylosing spondylitis CAD (coronary artery disease) Overweight (BMI 25.0-29.9) Leg edema Leg swelling Acute systolic heart failure Bradycardia Biliary pleural effusion HTN (hypertension) Ventricular tachyarrhythmia Atherosclerosis of holy cross co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 pectoris Pulmonary HTN Cardiomyopathy [...] (Auto) 77.3 H, Lymph % (Auto) 7.7L, [place] % (Auto) 13.0 H, Eos % (Auto) [...] 12/11/24 15:10 IMPRESSION: CHF exacerbation. Reading Location[facility] Assessment & Plan Assessment/Plan (1) Acute [...] Former tobacco use who presents to the [facility] ED on 12/11/24 with history of [...] and SVG to PDA in March2017 at [facility]), if able to tolerate will continue [...] 16 minutes. Charges/Coding Visit Charges Inpatient E&M: 65810 Init Hosp L3 Procedures Hospitalists Procedures: 58029 Advncd Care Plan 30 Min 12/11/24 1718 Cosigner Signature (if applicable): CC: Dr. Mary Jo Granados MD; Dr. Rigoberto Gould MD~ Signed [facility]04-17-2025 Discharge summary [facility] Medical Records Department [address] [place] [address] Emergency Department Summary 12/11/24 MR#: [id number] Acct: [id number] Name: MAURI QUINONES Rep #:[id number] : [...] similar symptoms: Yes Recent Illness/Hospitalization: No PFSH [facility] Medical History C. difficile diarrhea Anemia History of GI bleed Pure hypercholesterolemia Ischemic cardiomyopathy Essential hypertension Renal insufficiency Ankylosing spondylitis CAD (coronary artery disease) Overweight (BMI 25.0-29.9) Leg edema Leg swelling Acute systolic heart failure Bradycardia Biliary pleural effusion HTN (hypertension) Ventricular tachyarrhythmia Atherosclerosis of holy cross co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 pectoris Pulmonary HTN Cardiomyopathy [...] Discharge note authored by Dr. Delvalle still September2020.), Prior outpatient record (Seen for vitreal [...] 77.3 H Lymph % (Auto) 7.7 L [place] % (Auto) 13.0 H Eos % (Auto) [...] 12/11/24 15:10 IMPRESSION: CHF exacerbation. Reading Location: [facility] EKG Initial EKG: Attestation: I personally reviewed and interpreted this EKG as follows: Interpretation: Atrial Fibrillation (Rate is 89. There is evidence of right bundle branch block. QRS duration 162 ms. QT duration 128 ms. [place] of the right. There is no acute [...] Acute hyperkalemia,Hyponatremia Disposition Disposition: Acute Care Hospital [facility] What to do if you have Problems For any increased pain, shortness of breath, bleeding, nausea or vomiting, chestpain, or any unexpected problems, contact your Primary Care Provider. Call [facility] ([phone]) or report tothe closest Emergency Room. Call 911 if necessary. 12/11/24 1643 Cosigner Signature (if applicable): CC: Dr. Rigoberto Gould MD ~ Signed [facility]04-17-2025 Radiology Diagnostic study note [facility] Imaging Services [address] [place] [address] Chest PA and Lateral MR#: [id number] Acct: [id number] Name: MAURI QUINONES Rep #: [id number] : 1955 M 69 From: Breonna Davis MD PCP: Dr. Rigoberto Gould MD Status: REG E R Study:Chest PA and Lateral Date of Exam: 12/11/24 Exam# [id number] Ordering Dr: Crys Felder MD PROCEDURE: CHEST [...] and Lateral IMPRESSION: CHF exacerbation. Reading Location: [facility] CC: Dr. Rafa Felder MD; Dr. Rigoberto Gould MD ~ Drawing Checker: Signed [facility]04-11-2025 Instructions* Patient Instructions* Alexus Mendez APRN.CNP - 12/05/2024 1:40 PM EDT 1) Trazodone 50 mg 30 min before bed, dose can be cut in half or increased if we need to 2) Holding Lantus 3) See Dr. Gould 12/29/24 as scheduled 4) Benzonatate 100 mg 3 x day as needed for cough documented [facility]25 NoteHNO ID: [id number] Author: ALEXUS MENDEZ APRN.CNP Service: ? Author [...] GARRET (acute kidney injury) 03/24/2019 Ankylosing spondylitis ([facility]) CAD (coronary artery disease) Cellulitis Chronic combined systolic and diastolic CHF (congestive heart failure) ([facility]) 03/24/2019 CKD (chronic kidney disease) stage 3, GFR 30-59 ml/min ([facility]) 03/24/2019 Constipation Diabetes ([facility]) Gout High phosphate levels 03/24/2019 History of [...] NSTEMI (non-ST elevated myocardial infarction) (HCC) 03/12/2017 [facility] admit Osteoarthritis Transition of care performed with sharing of clinical summary 04/08/2019 Admit [facility] 03/21/19-03/22/19 Discharge diagnoses chronic kidney disease with worsening creatinine, acute kidney injury Hypokalemia Toxic encephalopathy secondary to Flexeril overusage Type 2 diabetes Ischemic cardiomyopathy Coronary artery disease Ligamental cervical neck strain and acute Pulmonary hypertension Hypertension Pyuria Preadmit: to [facility] ED with slurred speech, lethargy. PAST [...] 1 tablet by mouth every morning. Insulin Ridge, Disposable, (BD ULTRA-FINE GOLDY PEN NEEDLE) 32 [...] Smoking status: Never Smo (more content not included)...[facility]04-11-2025 History of Present illness Narrative* Alexus Mendez APRN.THEATRICAL PERFORMER - 12/05/2024 1:28 PM EDT This is [...] Acute on chronic diastolic congestive heart failure ([facility]) 07/14/2018 GARRET (acute kidney injury) 03/24/2019 GARRET (acute kidney injury) 03/24/2019 Ankylosing spondylitis ([facility]) CAD (coronary artery disease) Cellulitis Chronic combined systolic and diastolic CHF (congestive heart failure) ([facility]) 03/24/2019 CKD (chronic kidney disease) stage 3, GFR 30-59 ml/min ([facility]) 03/24/2019 Constipation Diabetes ([facility]) Gout High phosphate levels 03/24/2019 History of [...] valve calcifi NSTEMI (non-ST elevated myocardial infarction) ([facility]) 03/12/2017 [facility] admit Osteoarthritis Transition of care performed with sharing of clinical summary 04/08/2019 Admit [facility] 03/21/19-03/22/19 Discharge diagnoses chronic kidney disease with worsening creatinine, acute kidney injury Hypokalemia Toxic encephalopathy secondary to Flexeril overusage Type 2 diabetes Ischemic cardiomyopathy Coronary artery disease Ligamental cervical neck strain and acute Pulmonary hypertension Hypertension Pyuria Preadmit: to [facility] ED with slurred speech, lethargy. PAST [...] 1 tablet by mouth every morning. Insulin Ridge, Disposable, (BD ULTRA-FINE GOLDY PEN NEEDLE) 32 [...] complication, with long-term current use of insulin ([facility]) - ICD9: 250.00, V58.67, ICD10: E11.9, Z79.4 - Controlled - Stop Insulin glargine (Lantus/Basaglar/Toujeo) pt. Not taking insulin, BSS well controlled Discussed treatment plan and patient voices understanding. Patient's questions answered appropriately. Medications and potential side effects were discussed and patient voices understanding. Return to the office as scheduled or as needed for worsening/no improvement. Alexus Mendez APRN.CNP documented in this encounter[facility]04-04-[facility]25 Telephone encounter Note * Telephone Encounter - Alexus Mendez APRN.CNP - 11/28/2024 7:54 AM EDT I will order a Z-Chloe, azithromycin 2 tablets today and 1 daily for 4 more days and a steroid taper.Please let me check you next Sunday. Will ask nursing to get you an appointment. [facility]04-04-2025 Miscellaneous Notes* Telephone Encounter - Alexus Mendez APRN.CNP - 11/28/2024 7:54 AM EDT I will order a Z-Chloe, azithromycin 2 tablets today and 1 daily for 4 more days and a steroid taper.Please let me check you next Sunday. Will ask nursing to get you an appointment. documented in this encounterEast [facility]04-02-2025 History of Present illness Narrative* Jensen Mendieta CT - 11/26/2024 8:45 AM EDT RADIOLOGY SERVICE [...] PATIENT PRESENTS WITH AN IMPLANTABLE OR ATTACHED HOSPICE CARE CONSULTANT: No CREATININE: Creatinine Date Value Ref Range [...] 09:20 PATIENT DISCHARGED TO: Ambulatory patient, left [place] department area. Is this a therapy: No A Diagnostic radioactive procedure has taken place, with no further precautions necessary other than routine body substance precautions. More information regarding radiation safety can be found usingthis link: [email or web address]%20Nuclear%20Medicine%[email or web address] SIGNATURE: WILLIAMS Duran PATIENT NAME: Mauri Quinones DATE: November 26, 2024 TIME: 2:12 PM PAGER/CONTACT #: documented in this encounterEast [facility] Hospital04-02-2025 NoteHNO ID: [id number] Author: JENSEN MENDIETA CT Service: Nuclear Medicine [...] PATIENT PRESENTS WITH AN IMPLANTABLE OR ATTACHED HOSPICE CARE CONSULTANT: No CREATININE: Creatinine Date Value Ref Range [...] 09:20 PATIENT DISCHARGED TO: Ambulatory patient, left [place] department area. Is this a therapy: No A Diagnostic radioactive procedure has taken place, with no further precautions necessary other than routine body substance precautions. More information regarding radiation safety can be found using this link: [email or web address] 20Diagnostic%20Nuclear%20Medicine%20Procedures.pdf SIGNATURE: WILLIAMS Duran PATIENT NAME: Mauri Quinones DATE: November 26, 2024 TIME: 2:12 PM PAGER/CONTACT #:[phone] Telephone encounter Note * Telephone Encounter - Aleshia Vázquez - 11/21/2024 1:47 PM EDT Forwarded to Radiology for scheduling [facility]03-28-20[facility] Miscellaneous Notes* Telephone Encounter - Aleshia [...] please advise. Patient can be reached at #[phone] documented in this encounterEast [facility] City Hospital03-28-2025 Telephone encounter Note * Telephone Encounter - Isabela Rosado RN - 11/21/2024 1:05 PM EDT Spoke with patient and relayed message. Patient verbalized understanding. Please send to radiology for scheduling (Not Tuesdays and due to dialysis) [facility]03-28-2025 Telephone encounter Note* Telephone Encounter - Yessenia Hewitt PA-C - 11/21/2024 1:01 PM EDT Discussed with dr. De La Rosa. Labs are only slightly elevated. He is recommending aspiration with fluid analysis. Orders placed. Yessenia Hewitt PA-C [facility]03-27-2025 Telephone encounter Note* Telephone Encounter - Bryce Landin RN - 11/20/2024 4:41 PM EDT Called and left a detailed voicemail notifying Bernice WEINBERG from [facility] of providers message. Clinic phone number was left in case she had any questions. Bryce Landin RN [facility]03-27-2025 Miscellaneous Notes* Telephone Encounter - Bryce Landin RN - 11/20/2024 4:41 PM EDT Called and left a detailed voicemail notifying Bernice WEINBERG from [facility] of providers message. Clinic phone number was left in case she had any questions. Bryce Landin RN * Telephone Encounter - Rigoberto Gould MD - 11/20/2024 1:54 PM EDT ok * Telephone Encounter - Farrah Hastings RN - 11/20/2024 12:49 PM EDT Bernice RN from [facility] calls and states that they will be sending out a home health aide to help patient 3 hours a week. Bernice asking if PCP willing to follow orders? Please review and advise, Farrah Hastings RN documented in this encounterEast [facility]03-27-2025 Telephone encounter Note * Telephone Encounter - Rigoberto Gould MD - 11/20/2024 1:54 PM EDT ok [facility]03-27-20[facility] Telephone encounter Note* Telephone Encounter - Farrah Hastings RN - 11/20/2024 12:49 PM EDT Bernice RN from [facility] calls and states that they will be sending out a home health aide to help patient 3 hours a week. Bernice asking if PCP willing to follow orders? Please review and advise, Farrah Hastings, RN [facility]03-27-2025 Telephone encounter Note* Telephone Encounter - Lori Pino - 11/20/2024 9:34 AM EDT Patient called in, he got the results of his lab work and was curious what thought, please advise. Patient can be reached at #[phone] [facility]03-21-2025 NoteHNO ID: [id number] Author: NUPUR DE LA ROSA MD Service: [...] GARRET (acute kidney injury) 03/24/2019 Ankylosing spondylitis ([facility]) CAD (coronary artery disease) Cellulitis Chronic combined systolic and diastolic CHF (congestive heart failure) ([facility]) 03/24/2019 CKD (chronic kidney disease) stage 3, GFR 30-59 ml/min ([facility]) 03/24/2019 Constipation Diabetes ([facility]) Gout High phosphate levels 03/24/2019 History of [...] valve calcifi NSTEMI (non-ST elevated myocardial infarction) ([facility]) 03/12/2017 [facility] admit Osteoarthritis Transition of care performed with sharing of clinical summary 04/08/2019 Admit [facility] 03/21/19-03/22/19 Discharge diagnoses chronic kidney disease with worsening creatinine, acute kidney injury Hypokalemia Toxic encephalopathy secondary to Flexeril overusage Type 2 diabetes Ischemic cardiomyopathy Coronary artery disease Ligamental cervical neck strain and acute Pulmonary hypertension Hypertension Pyuria Preadmit: to [facility] ED with slurred speech, lethargy. PAST [...] for any surgical int (more content not included)...[facility]03-21-2025 History of Present illness Narrative* Nupur [...] Acute on chronic diastolic congestive heart failure ([facility]) 07/14/2018 GARRET (acute kidney injury) 03/24/2019 GARRET (acute kidney injury) 03/24/2019 Ankylosing spondylitis ([facility]) CAD (coronary artery disease) Cellulitis Chronic combined systolic and diastolic CHF (congestive heart failure) ([facility]) 03/24/2019 CKD (chronic kidney disease) stage 3, GFR 30-59 ml/min ([facility]) 03/24/2019 Constipation Diabetes ([facility]) Gout High phosphate levels 03/24/2019 History of [...] valve calcifi NSTEMI (non-ST elevated myocardial infarction) ([facility]) 03/12/2017 [facility] admit Osteoarthritis Transition of care performed with sharing of clinical summary 04/08/2019 Admit [facility] 03/21/19-03/22/19 Discharge diagnoses chronic kidney disease with worsening creatinine, acute kidney injury Hypokalemia Toxic encephalopathy secondary to Flexeril overusage Type 2 diabetes Ischemic cardiomyopathy Coronary artery disease Ligamental cervical neck strain and acute Pulmonary hypertension Hypertension Pyuria Preadmit: to [facility] ED with slurred speech, lethargy. PAST [...] [facility] ortho TOE SURGERY HX Right PHYSICAL [...] La Rosa M.D. Department of Orthopaedic Surgery [facility] documented in this encounterEast [facility]03-21-2025 History of Present illness Narrative* Shaye Polanco, RT(R) - 11/14/2024 9:30 AM EDT Radiology [...] PATIENT PRESENTS WITH AN IMPLANTABLE OR ATTACHED HOSPICE CARE CONSULTANT: No RADIOLOGY DEPARTMENT: General X-ray: Exam(s) Completed: Lower Extremity X- Ray(s): Femur, Right PERIPHERAL IV DATA: Not applicable SIGNED BY: RT Carol(Nader) November 14, 2024 9:47 AM documented in this encounterEast [facility] Hospital03-21-2025 NoteHNO ID: [id number] Author: SHAYE POLANCO RT(R) Service: Radiology Author [...] PATIENT PRESENTS WITH AN IMPLANTABLE OR ATTACHED HOSPICE CARE CONSULTANT: No RADIOLOGY DEPARTMENT: General X-ray: Exam(s) Completed: Lower Extremity X-Ray(s): Femur, Right PERIPHERAL IV DATA: Not applicable SIGNED BY: RT Carol(Nader) November 14, 2024 9:47 AMCorey [phone] Telephone encounter Note* Telephone Encounter - Lori Pino - 11/11/2024 11:40 AM EDT Patient called back in and has been scheduled. [facility]03-18-2025 Miscellaneous Notes* Telephone Encounter - Lori Pino - 11/11/2024 11:40 AM EDT Patient called back in and has been scheduled. * Telephone Encounter - Isabela Rosado RN - 11/11/2024 7:20 AM EDT I talked with Harrison. He denies new trauma but c/o sharp pain in groin and anterior thigh with hip flexion. He has a KEMAR and TKA on this side with a retrograde minesh for an old periprosthetic knee fracture. Harrison also wears a knee brace to help with instability of the total knee. I will ask our schedulers to call Harrison to help set up a visit and new femur XRays. Maco Rivera PA-C * Telephone Encounter - Maco Rivera PA-C - 11/10/2024 4:58 PM EDT Isabela please ask schedulers to call Harrison to help set up an office follow up. Thank you Cara * Telephone Encounter - Maco Rivera PA-C - 11/10/2024 3:08 PM EDT I called but still no answer. I will try again today or tomorrow. Maco Rivera PA-C * Telephone Encounter - Maco Rivera PA-C - 11/10/2024 2:26 PM EDT I called to talk with Harrison but there was no answer. I will [...] is able to weight 100% Saw pt 2/21/25 He is stretching twice a day to help Please advise documented in this encounterEast [facility]03-18-2025 Telephone encounter Note * Telephone Encounter - Isabela Rosado RN - 11/11/2024 7:20 AM EDT I talked with Harrison. He denies new trauma but c/o sharp pain in groin and anterior thigh with hip flexion. He has a KEMAR and TKA on this side with a retrograde minesh for an old periprosthetic knee fracture. Harrison also wears a knee brace to help with instability of the total knee. I will ask our schedulers to call Harrison to help set up a visit and new femur XRays. Maco Rivera PA-C [facility]03-17-2025 Telephone encounter Note* Telephone Encounter - Maco Rivera PA-C - 11/10/2024 4:58 PM EDT Isabela please ask schedulers to call Harrison to help set up an office follow up. Thank you Cara [facility] Work Phone: 1(978) 871-217803-17-2025 Telephone encounter Note* Telephone Encounter - Maco Rivera PA-C - 11/10/2024 3:08 PM EDT I called but still no answer. I will try again today or tomorrow. Maco Rivera PA-C [facility]03-17-20[facility] Telephone encounter Note* Telephone Encounter - Maco Rivera PA-C - 11/10/2024 2:26 PM EDT I called to talk with Harrison but there was no answer. I will try again later today. Maco Rivera PA-C [facility]03-17-2025 Telephone encounter Note* Telephone Encounter - [...] twice a day to help Please advise [facility]03-16-2025 Telephone encounter Note* Telephone Encounter - Candice Mayer RN - 11/09/2024 6:15 PM EDT Patient calling regarding pain at hip replacement. Conferenced to [facility] picking belt operator, Martha, to speak with provider international organizer for Dr Fields. [facility]03-16-2025 Miscellaneous Notes* Telephone Encounter - Candice Mayer RN - 11/09/2024 6:15 PM EDT Patient calling regarding pain at hip replacement. Conferenced to [facility] picking belt operator, Martha, to speak with provider international organizer for Dr Fields. documented [facility] Evaluation note* Diagnosis Onset Date Resolution Status Admit Date Atherosclerosis of holy cross co 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 chronic October 28, 2024 12:52pm DM2 (diabetes mellitus, type 2) chronometer adjuster luca October 28, 2024 12:52pm Essential hypertension chronic Ma rch 2024 12:52pm Ischemic cardiomyopathy chronic M arch 2024 12:52pm Pure hypercholesterolemia chronic October 28, 2024 12:52pm Valvular heart disease chronic [facility] 2024 12:52pm Acute hyperkalemia acute December 11, 2024 4:45pm Acute uremia acute December 11, 2024 4:45pm End-stage renal disease on hemodialysis acute December 11, 2024 4:45pm Fluid overload acute November 4:45pm History of ischemic cardiomyopathy a cute December 11, 2024 4:45pm Hyponatremia acute December 11, 2024 4:45pm Paroxysmal atrial fibrillation acute December 11, 2024 4:45pm [facility] Work Phone: 1(787) 437-406303-04-2025 Evaluation note* Diagnosis Onset Date Resolution Status Admit Date Atherosclerosis of holy cross co 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 chronic October 28, 2024 12:52pm DM2 (diabetes mellitus, type 2) chronometer adjuster luca October 28, 2024 12:52pm Essential hypertension chronic [facility] 2024 12:52pm Ischemic cardiomyopathy chronic M arch 2024 12:52pm Pure hypercholesterolemia chronic October 28, 2024 12:52pm Valvular heart disease chronic [facility] 2024 12:52pm Acute hyperkalemia acute December [...] Ischemic cardiomyopathy chronic A pril 2024 4:45pm [facility] Work Phone: 1(284) 703-826503-04-2025 Evaluation note* Diagnosis Onset Date Resolution Status Admit Date Atherosclerosis of holy cross co 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 chronic October 28, 2024 12:52pm DM2 (diabetes mellitus, type 2) chronometer adjuster luca October 28, 2024 12:52pm Essential hypertension chronic [facility] 2024 12:52pm Ischemic cardiomyopathy chronic M arch 2024 12:52pm Pure hypercholesterolemia chronic October 28, 2024 12:52pm Valvular heart disease chronic Ma rch 2024 12:52pm Acute hyperkalemia acute December 11, [...] acute December 26, 2024 12:56pm Atherosclerosis of holy cross co 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 chronic December 26, 2024 12:56pm Essential hypertension chronic Ma y 2024 12:56pm Ischemic cardiomyopathy chronic M ay 2024 12:56pm Pure hypercholesterolemia chronic December 26, 2024 12:56pm Valvular heart disease chronic Ma y 2024 12:56pm [facility] Work Phone: 1(569) 241-507302-21-2025 NoteHNO ID: [id number] Author: NUPUR DE LA ROSA MD Service: ? Author Type: Physician Type: Progress Notes Filed: 11/14/2024 21:56 Note Text: REASON FOR VISIT / CHIEF COMPLAINT CHIEF COMPLAINT: Mauri Quinones is a 69 year old male who presents today for follow up office visit. Patient presents with: Right Knee - Follow Up HISTORY OF PRESENT ILLNESS (HPI) PAIN EVALUATION 10/17/2024 8139 Pain Level: 6 Pain Location: Knee-Right Description: [...] Acute on chronic diastolic congestive heart failure ([facility]) 07/14/2018 [facility] (acute kidney injury) ([facility]) 03/24/2019 [facility] (acute kidney injury) ([facility]) 03/24/2019 Ankylosing spondylitis ([facility]) CAD (coronary artery disease) Cellulitis Chronic combined systolic and diastolic CHF (congestive heart failure) ([facility]) 03/24/2019 CKD (chronic kidney disease) stage 3, GFR 30-59 ml/min ([facility]) 03/24/2019 Constipation Diabetes ([facility]) Gout High phosphate levels 03/24/2019 History of [...] valve calcifi NSTEMI (non-ST elevated myocardial infarction) ([facility]) 03/12/2017 [facility] admit Osteoarthritis Transition of care performed with sharing of clinical summary 04/08/2019 Admit [facility] 03/21/19-03/22/19 Discharge diagnoses chronic kidney disease with worsening creatinine, acute kidney injury Hypokalemia Toxic encephalopathy secondary to Flexeril overusage Type 2 diabetes Ischemic cardiomyopathy Coronary artery disease Ligamental cervical neck strain and acute Pulmonary hypertension Hypertension Pyuria Preadmit: to [facility] ED with slurred speech, lethargy. PAST [...] [facility] TOE SURGERY HX Right PHYSICAL [...] radiographs will be suzanne (more content not included)...[facility]02-21-2025 History of Present illness Narrative* Nupur [...] Acute on chronic diastolic congestive heart failure ([facility]) 07/14/2018 [place] (acute kidney injury) ([facility]) 03/24/2019 [facility] (acute kidney injury) ([facility]) 03/24/2019 Ankylosing spondylitis ([facility]) CAD (coronary artery disease) Cellulitis Chronic combined systolic and diastolic CHF (congestive heart failure) ([facility]) 03/24/2019 CKD (chronic kidney disease) stage 3, GFR 30-59 ml/min ([facility]) 03/24/2019 Constipation Diabetes ([facility]) Gout High phosphate levels 03/24/2019 History of [...] valve calcifi NSTEMI (non-ST elevated myocardial infarction) ([facility]) 03/12/2017 [facility] admit Osteoarthritis Transition of care performed with sharing of clinical summary 04/08/2019 Admit [facility] 03/21/19-03/22/19 Discharge diagnoses chronic kidney disease with worsening creatinine, acute kidney injury Hypokalemia Toxic encephalopathy secondary to Flexeril overusage Type 2 diabetes Ischemic cardiomyopathy Coronary artery disease Ligamental cervical neck strain and acute Pulmonary hypertension Hypertension Pyuria Preadmit: to [facility] ED with slurred speech, lethargy. PAST [...] La Rosa M.D. Department of Orthopaedic Surgery [facility] documented in this encounter[facility]02-[facility] Telephone encounter Note * Telephone Encounter - Bryce Landin RN - 10/09/2024 10:06 AM EST Pts called and is notified of providers message. She voices understanding. Bryce Landin RN [facility]02-13-20[facility] Miscellaneous Notes* Telephone Encounter - Bryce [...] Cantu LPN - 10/08/2024 4:47 PM EST [facility] sends fax stating that Ammonium lactate lotion should be changed to cream. Called to Yun villanueva message to call and speak with nurse. Was patient able to grain picker prescription of do they in fact need this changed? documented in this encounter[facility] Telephone encounter Note * Telephone Encounter - Alexus Mendez APRN.CNP - 10/09/2024 8:00 AM EST Creme was ordered. [facility]02-12-[facility] Telephone encounter Note* Telephone Encounter - [...] Landin RN October 08, 2024 6:05 PM [facility] Telephone encounter Note* Telephone Encounter - Alicia Cantu LPN - 10/08/2024 4:47 PM EST [facility] sends fax stating that Ammonium lactate lotion should be changed to cream. Called to Yun phillips to call and speak with nurse. Was patient able to grain picker prescription of do they in fact need this changed? [facility]02-11-[facility] Instructions* Patient Instructions* Alexus Mendez APRN.CNP - 10/07/2024 3:14 PM EST 1) Hydroxyzine 25 mg up to every 6 hours as needed for itching 2) Ammonium Lactate 12% daily for itching 3) Dr. Gould to see you 12/29/24 documented in this encounterEast [facility]02-11-[facility]25 NoteHNO ID: [id number] Author: ALEXUS MENDEZ APRN.MARGUERITE Service: ? Author Type: Nurse Practitioner Type: [...] Acute on chronic diastolic congestive heart failure ([facility]) 07/14/2018 [facility] (acute kidney injury) ([facility]) 03/24/2019 [facility] (acute kidney injury) ([facility]) 03/24/2019 Ankylosing spondylitis ([facility]) CAD (coronary artery disease) Cellulitis Chronic combined systolic and diastolic CHF (congestive heart failure) ([facility]) 03/24/2019 CKD (chronic kidney disease) stage 3, GFR 30-59 ml/min ([facility]) 03/24/2019 Constipation Diabetes ([facility]) Gout High phosphate levels 03/24/2019 History of [...] NSTEMI (non-ST elevated myocardial infarction) (HCC) 03/12/2017 [facility] admit Osteoarthritis Transition of care performed with sharing of clinical summary 04/08/2019 Admit [facility] 03/21/19-03/22/19 Discharge diagnoses chronic kidney disease with worsening creatinine, acute kidney injury Hypokalemia Toxic encephalopathy secondary to Flexeril overusage Type 2 diabetes Ischemic cardiomyopathy Coronary artery disease Ligamental cervical neck strain and acute Pulmonary hypertension Hypertension Pyuria Preadmit: to [facility] ED with slurred speech, lethargy. PAST [...] 1 tablet by mouth every morning. Insulin Ridge, Disposable, (BD ULTRA-FINE GOLDY PEN NEEDLE) 32 [...] PHYSICAL EXAM: Physical Exam (more content not included)...[facility]02-11-2025 History of Present illness Narrative* Alexus Mendez APRN.[facility] - 10/07/2024 3:03 PM EST This is [...] failure (HCC) 07/14/2018 [facility] (acute kidney injury) ([facility]) 03/24/2019 [facility] (acute kidney injury) ([facility]) 03/24/2019 Ankylosing spondylitis ([facility]) CAD (coronary artery disease) Cellulitis Chronic combined systolic and diastolic CHF (congestive heart failure) ([facility]) 03/24/2019 CKD (chronic kidney disease) stage 3, GFR 30-59 ml/min ([facility]) 03/24/2019 Constipation Diabetes ([facility]) Gout High phosphate levels 03/24/2019 History of [...] NSTEMI (non-ST elevated myocardial infarction) (HCC) 03/12/2017 [facility] admit Osteoarthritis Transition of care performed with sharing of clinical summary 04/08/2019 Admit [facility] 03/21/19-03/22/19 Discharge diagnoses chronic kidney disease with worsening creatinine, acute kidney injury Hypokalemia Toxic encephalopathy secondary to Flexeril overusage Type 2 diabetes Ischemic cardiomyopathy Coronary artery disease Ligamental cervical neck strain and acute Pulmonary hypertension Hypertension Pyuria Preadmit: to [facility] ED with slurred speech, lethargy. PAST [...] 1 tablet by mouth every morning. Insulin Ridge, Disposable, (BD ULTRA-FINE GOLDY PEN NEEDLE) 32 [...] complication, with long-term current use of insulin ([facility]) - ICD9: 250.00, V58.67, ICD10: E11.9, Z79.4 [...] as needed for worsening/no improvement. Alexus Mendez APRN.THEATRICAL PERFORMER documented in this encounter[facility]02-10-[facility] Telephone encounter Note * Telephone Encounter - Aleshia Vázquez - 10/06/2024 12:48 PM EST Patient scheduled with Dr De La Rosa on 10/08/2024 [facility]-10[facility] Miscellaneous Notes* Telephone Encounter - Aleshia [...] spoke with dr de la rosa Sunday and that dr de la rosa said [...] speak to her. I informed pt that maroi does not eliza appts. Please advise when to eliza pt Laura Duglas * Telephone Encounter - iL Bunch - 10/06/2024 9:21 AM EST Patient called for an appt with Dr. De La Rosa, no reason given. documented in this encounter[facility] Telephone encounter Note * Telephone Encounter - Li Bunch - 10/06/2024 11:53 AM EST Per , he did speak to the patient. Please offer one of the open slots on 10/08. [facility]02-10-[facility] Telephone encounter Note* Telephone Encounter - Laura Ardon - 10/06/2024 10:49 AM EST Spoke with pt on the phone. Pt stated he spoke with dr de la rosa Sunday and that dr de la rosa said [...] advise when to eliza pt Laura Duglas [facility]02-10-[facility] Telephone encounter Note* Telephone Encounter - Li Bunch - 10/06/2024 9:21 AM EST Patient called for an appt with Dr. De La Rosa, no reason given. [facility]02-07-2025 NoteHNO ID: [id number] Author: NUPUR DE LA ROSA MD Service: [...] I have offered him a prescription of [place] and recommended that he return to the [...] and notify patient. Nupur De La Rosa [facility]02-07-2025 History of Present illness Narrative* Nupur [...] I have offered him a prescription of [place] and recommended that he return to the [...] De La Rosa MD documented in this encounter[facility]02-[facility] Telephone encounter Note * Telephone Encounter - Isabela Stahl RN - 10/03/2024 6:50 PM EST Patient calling regarding pain medication regimen. Transferred to [facility] [employer] Worker Helper [facility] [place] international organizer provider for orthopedics. [facility]02-07-[facility] Miscellaneous Notes* Telephone Encounter - Isabela Stahl RN - 10/03/2024 6:50 PM EST Patient calling regarding pain medication regimen. 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 documented in this encounter[facility]01-27-2025 NoteHNO ID: [id number] Author: MACO RIVERA PA-C Service: ? Author Type: Physician Hydroponics Worker Type: Progress Notes Filed: 09/22/2024 16:18 Note Text: SERVICE DATE: September 22, 2024 PCP: Rigoberto Gould MD Patient was self-referred. Subjective Patient ID: Harrison is a 68 year old male. Chief Complaint: Patient presents with: Right Hip - New, Pain PAIN EVALUATION 09/22/2024 1351 Pain Location: Hip-Right Description: Radiating;Sharp;Sore;Aching radiates through the thigh to knee (along the past incision surgical line) Frequency: Intermittent Intervention/Comfort measure: Medication;Support surface;Imagery tylenol Comments: wearing hinged brace Harrison comes today c/o right knee pain. [place] [address] Peguero and Harrison states he did well until he had a per-prosthetic femur fracture. He had the fracture plated then went on the break the plate, requiring a retrograde minesh which was done in March of 2023. Harrison said he was doing well until a month ago. He denies trauma but has had increased pain and swelling of the right knee. He wears a TROM brace when up and uses a walker for ambulation. Harrison takes 1,500 mg of tylenol at night [...] Complication, With Long-Term Current Use of Insulin (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) Chronic Combined Systolic and Diastolic Chf (Congestive Heart Failure) (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) Osteopenia, Senile Other Fracture of Right Femur, Initial Encounter for Closed Fracture ([facility]) Blood Loss Anemia Johny (Obstructive Sleep Apnea) Thoracic Compression Fracture, Closed, Initial Encounter ([facility]) Esrd (End Stage Renal Disease) On Dialysis ([facility]) Fracture, Femur, Supracondylar, Right, Open Type I Or II, Initial Encounter ([facility]) Abnormal Ekg Chronic Kidney Disease (Ckd), Stage V ([facility]) Hx of Cabg Preoperative Examination PAST MEDICAL HISTORY Diagnosis Date Acute on chronic diastolic congestive heart failure ([facility]) 07/14/2018 [place] (acute kidney injury) ([facility]) 03/24/2019 [facility] (acute kidney injury) ([facility]) 03/24/2019 Ankylosing spondylitis ([facility]) CAD (coronary artery disease) Cellulitis Chronic combined systolic and diastolic CHF (congestive heart failure) ([facility]) 03/24/2019 CKD (chronic kidney disease) stage 3, GFR 30-59 ml/min ([facility]) 03/24/2019 Constipation Diabetes ([facility]) Gout High phosphate levels 03/24/2019 History of [...] valve calcifi NSTEMI (non-ST elevated myocardial infarction) ([facility]) 03/12/2017 [facility] admit Osteoarthritis Transition of care performed with sharing of clinical summary 04/08/2019 Admit [facility] 03/21/19-03/22/19 Discharge diagnoses chronic kidney disease with worsening creatinine, acute kidney injury Hypokalemia Toxic encephalopathy secondary to Flexeril overusage Type 2 diabetes Ischemic cardiomyopathy Coronary artery disease Ligamental cervical neck strain and acute Pulmonary hypertension Hypertension Pyuria Preadmit: to [facility] ED with slurred speech, lethargy. PAST [...] [facility] (more content not included)...[facility]01-[facility] History of Present illness Narrative* Maco Rivera PA-C - 09/22/2024 2:26 PM EST Images from the original note were not included. SERVICE DATE: September 22, 2024 PCP: Rigoberto Gould MD Patient was self-referred. Subjective Patient ID: Harrison is a 68 year old male. Chief Complaint: Patient presents with: Right Hip - New, Pain PAIN EVALUATION 09/22/2024 1351 Pain Location: Hip-Right Description: Radiating;Sharp;Sore;Aching radiates through the thigh to knee (along the past incision surgical line) Frequency: Intermittent Intervention/Comfort measure: Medication;Support surface;Imagery tylenol Comments: wearing hinged brace Harrison comes today c/o right knee pain. [place] [address] Peguero and Harrison states he did well until he had a per-prosthetic femur fracture. He had the fracture plated then went on thebreak the plate, requiring a retrograde minesh which was done in March of 2023. Harrison said he was doing well until a month ago. He denies trauma but has had increased pain and swelling of the right knee. He wears a TROM brace when up and uses a walker for ambulation. 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) Pvd (Peripheral Vascular Disease) ([facility]) Chronic Combined Systolic and Diastolic Chf (Congestive Heart Failure) (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) Osteopenia, Senile Other Fracture of Right Femur, Initial Encounter for Closed Fracture ([facility]) Blood Loss Anemia Johny (Obstructive Sleep Apnea) Thoracic Compression Fracture, Closed, Initial Encounter ([facility]) Esrd (End Stage Renal Disease) On Dialysis ([facility]) Fracture, Femur, Supracondylar, Right, Open Type I Or II, Initial Encounter ([facility]) Abnormal Ekg Chronic Kidney Disease (Ckd), Stage V ([facility]) Hx of Cabg Preoperative Examination PAST MEDICAL HISTORY Diagnosis Date Acute on chronic diastolic congestive heart failure ([facility]) 07/14/2018 [place] (acute kidney injury) ([facility]) 03/24/2019 [facility] (acute kidney injury) ([facility]) 03/24/2019 Ankylosing spondylitis ([facility]) CAD (coronary artery disease) Cellulitis Chronic combined systolic and diastolic CHF (congestive heart failure) ([facility]) 03/24/2019 CKD (chronic kidney disease) stage 3, GFR 30-59 ml/min ([facility]) 03/24/2019 Constipation Diabetes ([facility]) Gout High phosphate levels 03/24/2019 History of [...] valve calcifi NSTEMI (non-ST elevated myocardial infarction) ([facility]) 03/12/2017 [facility] admit Osteoarthritis Transition of care performed with sharing of clinical summary 04/08/2019 Admit [facility] 03/21/19-03/22/19 Discharge diagnoses chronic kidney disease with worsening creatinine, acute kidney injury Hypokalemia Toxic encephalopathy secondary to Flexeril overusage Type 2 diabetes Ischemic cardiomyopathy Coronary artery disease Ligamental cervical neck strain and acute Pulmonary hypertension Hypertension Pyuria Preadmit: to [facility] ED with slurred speech, lethargy. PAST [...] 1 tablet by mouth every morning. Insulin Ridge, Disposable, (BD ULTRA-FINE GOLDY PEN NEEDLE) 32 [...] Z96.659) Instability of prosthetic knee, initial encounter ([facility]) ([facility]) (primary encounter diagnosis) (M62.81) Weakness of right quadriceps muscle (Z96.651) Status post total right knee replacement (Z96.641) Status post total replacement of right hip No orders found for this visit on 09/22/24. PLAN Harrison is not a good surgical candidate and he wants to avoid surgery if at all possible. He will continue to use the TROM and walker. Instructed in quad sets and sheet given to Harrison. Tylenol 1,000 mg three times a day for pain. FOLLOW-UP: No follow-ups on file. 3 months SIGNATURE: Maco Rivera PA-C PATIENT NAME: Mauri Quinones DATE: September 22, 2024 TIME: 2:28 PM documented in this [facility]01-27-2025 History of Present illness Narrative* Stormy Nolan [...] PATIENT PRESENTS WITH AN IMPLANTABLE OR ATTACHED HOSPICE CARE CONSULTANT: No RADIOLOGY DEPARTMENT: General X-ray: Exam(s) Completed: Pelvis X-Ray: Pelvis General AP Lower Extremity X-Ray(s): Femur, Right PERIPHERAL IV DATA: Not applicable SIGNED BY: Robert Maxwell September 22, 2024 1:57 PM documented in this encounterEast [facility]01-27-2025 NoteHNO ID: [id number] Author: STORMY NOLAN Tech Service: ? Author Type: Plastering Supervisor Type: Progress Notes Filed: 09/22/2024 13:57 Note [...] PATIENT PRESENTS WITH AN IMPLANTABLE OR ATTACHED HOSPICE CARE CONSULTANT: No RADIOLOGY DEPARTMENT: General X-ray: Exam(s) Completed: Pelvis X-Ray: Pelvis General AP Lower Extremity X-Ray(s): Femur, Right PERIPHERAL IV DATA: Not applicable SIGNED BY: Robert Maxwell September 22, 2024 1:57 PMCorey [id number] Instructions* Patient Instructions* Alexus Mendez APRN.CNP - 09/04/2024 8:26 AM EST 1) Zofran ordered every 8 hours as needed for nausea and vomiting 2) Ok for acetaminophen as needed 3) See Dr. Gould in December as scheduled Consider holding Bumex if not able to get fluids in or having diarrhea/ vomiting documented in this encounterEast [facility]01-09-2025 NoteHNO ID: [id number] Author: ALEXUS MENDEZ APRN.CNP Service: ? Author [...] failure (HCC) 07/14/2018 [facility] (acute kidney injury) ([facility]) 03/24/2019 [place] (acute kidney injury) ([facility]) 03/24/2019 Ankylosing spondylitis ([facility]) CAD (coronary artery disease) Cellulitis Chronic combined systolic and diastolic CHF (congestive heart failure) ([facility]) 03/24/2019 CKD (chronic kidney disease) stage 3, GFR 30-59 ml/min ([facility]) 03/24/2019 Constipation Diabetes ([facility]) Gout High phosphate levels 03/24/2019 History of [...] NSTEMI (non-ST elevated myocardial infarction) (HCC) 03/12/2017 [facility] admit Osteoarthritis Transition of care performed with sharing of clinical summary 04/08/2019 Admit [facility] 03/21/19-03/22/19 Discharge diagnoses chronic kidney disease with worsening creatinine, acute kidney injury Hypokalemia Toxic encephalopathy secondary to Flexeril overusage Type 2 diabetes Ischemic cardiomyopathy Coronary artery disease Ligamental cervical neck strain and acute Pulmonary hypertension Hypertension Pyuria Preadmit: to [facility] ED with slurred speech, lethargy. PAST [...] 1 tablet by mouth every morning. Insulin Ridge, Disposable, (BD ULTRA-FINE GOLDY PEN NEEDLE) 32 [...] Mother Diabetes Mother H (more content not included)...[facility]01-09-2025 History of Present illness Narrative* Alexus Mendez APRN.[facility] - 09/04/2024 8:10 AM EST This [...] Acute on chronic diastolic congestive heart failure ([facility]) 07/14/2018 [facility] (acute kidney injury) ([facility]) 03/24/2019 [place] (acute kidney injury) ([facility]) 03/24/2019 Ankylosing spondylitis ([facility]) CAD (coronary artery disease) Cellulitis Chronic combined systolic and diastolic CHF (congestive heart failure) ([facility]) 03/24/2019 CKD (chronic kidney disease) stage 3, GFR 30-59 ml/min ([facility]) 03/24/2019 Constipation Diabetes ([facility]) Gout High phosphate levels 03/24/2019 History of [...] valve calcifi NSTEMI (non-ST elevated myocardial infarction) ([facility]) 03/12/2017 [facility] admit Osteoarthritis Transition of care performed with sharing of clinical summary 04/08/2019 Admit [facility] 03/21/19-03/22/19 Discharge diagnoses chronic kidney disease with worsening creatinine, acute kidney injury Hypokalemia Toxic encephalopathy secondary to Flexeril overusage Type 2 diabetes Ischemic cardiomyopathy Coronary artery disease Ligamental cervical neck strain and acute Pulmonary hypertension Hypertension Pyuria Preadmit: to [facility] ED with slurred speech, lethargy. PAST [...] 1 tablet by mouth every morning. Insulin Ridge, Disposable, (BD ULTRA-FINE GOLDY PEN NEEDLE) 32 [...] as needed for worsening/no improvement. Alexus Mendez APRN.THEATRICAL PERFORMER documented [facility] Telephone encounter Note * Telephone Encounter - Rigoberto Gould MD - 09/03/2024 3:23 PM EST Agree with Er. She would just send him tomorrow if he came in. [facility]01-08-2025 Miscellaneous Notes* Telephone Encounter - Rigoberto [...] Suppan at 8 am. documented in this encounterEast [facility]01-[facility] Telephone encounter Note * Telephone Encounter [...] tomorrow with J Suppan at 8 am. [facility]01-06[facility] Telephone encounter Note* Telephone Encounter - Bryce Landin RN - 09/01/2024 2:07 PM EST Sent message to Pt in [place] [employer] as he asked. [facility]01-06[facility] Miscellaneous Notes* Telephone Encounter - Bryce Landin RN - 09/01/2024 2:07 PM EST [facility] [place] [facility] asked. * Telephone Encounter - [...] Please call and advise. documented in this encounterEast [facility]01-06-2025 Telephone encounter Note * Telephone Encounter - Rigoberto Gould MD - 09/01/2024 1:57 PM EST Not much otc counter. Brat diet and fluids, if continues or worsens, needs seen [facility]01-06-2025 Telephone encounter Note* Telephone Encounter - [...] he could eat. Please call and advise. [facility]12-30-2024 Telephone encounter Note* Telephone Encounter - Luciana Ferguson - 08/25/2024 2:00 PM EST Lvm for patient to call back and schedule with Cara on sunday [facility]12-30-2024 Miscellaneous Notes* Telephone Encounter - Luciana Ferguson - 08/25/2024 2:00 PM EST Lvm for patient to call back and schedule with Cara on sunday * Telephone Encounter - Isabela Rosado RN - 08/25/2024 1:43 PM EST Patient calling with pain between right hip and knee Please call pt and offer Friday 09/01 with Cara documented in this encounterEast [facility]12-30-[facility]24 Telephone encounter Note * Telephone Encounter - Isabela Rosado RN - 08/25/2024 1:43 PM EST Patient calling with pain between right hip and knee Please call pt and offer Friday 09/01 with Cara [facility]12-[facility]24 Telephone encounter Note* Telephone Encounter - Aleshia Vázquez - 08/12/2024 3:06 PM EST Spoke with patient and he states he will talk to his and call back Aleshia Vázquez [facility]12-17-2024 Miscellaneous Notes* Telephone Encounter - Aleshia Vázquez - 08/12/2024 3:06 PM EST Spoke with patient and he states he will talk to his and call back Aleshia Vázquez * Telephone Encounter - Isabela Rosado RN [...] 12, 2024 11:23 AM documented in this encounterEast [facility]12-17-2024 Telephone encounter Note * Telephone Encounter - Isabela Rosado RN - 08/12/2024 11:29 AM EST Pt needs an appt before refills are ok'd [facility]12-17-2024 Telephone encounter Note* Telephone Encounter - [...] Luciana Ferguson August 12, 2024 11:23 AM [facility]11-19-2024 Telephone encounter Note* Telephone Encounter - Garrison Olmedo MA - 07/15/2024 3:02 PM EST Patient was made aware of the results. Patient verbalizes understanding. Garrison Olmedo Ma [facility]11-19-2024 Miscellaneous Notes* Telephone Encounter - Garrison [...] are managed by dialysis. documented in this encounterEast [facility]11-19-2024 Telephone encounter Note * Telephone Encounter [...] All other studies are managed by dialysis. [facility]11-08-2024 Telephone encounter Note* Telephone Encounter - Cristina Zamudio APRN.CNP - 07/04/2024 5:55 PM EST Duplicate and already sent in today. Cristina Zamudio APRN.CNP [facility] Work Phone: 1(869) 694-906111-08-2024 Miscellaneous Notes* Telephone Encounter - Cristina Zamudio [...] 04, 2024 12:16 PM documented in this encounterEast [facility] Hospital11-08-2024 Telephone encounter Note * Telephone Encounter [...] Swain RN July 04, 2024 12:16 PM [facility] Telephone encounter Note* Telephone Encounter - Farrah Hastings RN - 07/02/2024 8:59 AM EST Patient calls to see the status of below. Patient notified that medication was sent to mail away pharmacy. Patient asking if provider sent in prescription for Cialis to [facility]? Please review and advise, Farrah Hastings RN [facility]11-06-2024 Miscellaneous Notes* Telephone Encounter - Farrah Hastings RN - 07/02/2024 8:59 AM EST Patient calls to see the status of below. Patient notified that medication was sent to mail away pharmacy. Patient asking if provider sent in prescription for Cialis to [facility]? Please review and advise, Farrah Hastings RN * Telephone Encounter - Alexus Mendez APRN.CNP - 06/30/2024 5:43 PM EST Lantus Solostar pens Ordered JERAMY * Telephone Encounter - Garrison Olmedo MA - 06/30/2024 5:16 PM EST Fax received from [facility] that Lantus Solostar is not covered and needs to get vials. Spoke with patient and he will not use vials, asking for the prescription to be run through his mail order to see if it will be covered as he has two insurance coverages. Garrison Olmedo MA June 30, 2024 5:23 PM documented in this encounterEast [facility]11-04-2024 Telephone encounter Note * Telephone Encounter - Alexus Mendez APRN.CNP - 06/30/2024 5:43 PM EST Lantus Solostar pens Ordered JERAMY [facility]11-04-2024 Telephone encounter Note* Telephone Encounter - Garrison Olmedo MA - 06/30/2024 5:16 PM EST Fax received from [facility] that Lantus Solostar is not covered and needs to get vials. Spoke with patient and he will not use vials, asking for the prescription to be run through his mail order to see if it will be covered as he has two insurance coverages. Garrison Olmedo MA June 30, 2024 5:23 PM [facility]11-04-2024 Instructions* Patient Instructions* Alexus Mendez APRN.CNP - 06/30/2024 1:21 PM EST 1) Please fax labs to [facility] 2) Follow up in 6 months documented in this encounterEast [facility] Hospital11-04-2024 NoteHNO ID: [id number] Author: ALEXUS MENDEZ APRN.CNP Service: ? Author [...] failure (HCC) 07/14/2018 [place] (acute kidney injury) ([facility]) 03/24/2019 [place] (acute kidney injury) ([facility]) 03/24/2019 Ankylosing spondylitis (HCC) CAD (coronary artery disease) Cellulitis Chronic combined systolic and diastolic CHF (congestive heart failure) ([facility]) 03/24/2019 CKD (chronic kidney disease) stage 3, GFR 30-59 ml/min ([facility]) 03/24/2019 Constipation Diabetes ([facility]) Gout High phosphate levels 03/24/2019 History of [...] NSTEMI (non-ST elevated myocardial infarction) (HCC) 03/12/2017 [facility] admit Osteoarthritis Transition of care performed with sharing of clinical summary 04/08/2019 Admit [facility] 03/21/19-03/22/19 Discharge diagnoses chronic kidney disease with worsening creatinine, acute kidney injury Hypokalemia Toxic encephalopathy secondary to Flexeril overusage Type 2 diabetes Ischemic cardiomyopathy Coronary artery disease Ligamental cervical neck strain and acute Pulmonary hypertension Hypertension Pyuria Preadmit: to [facility] ED with slurred speech, lethargy. PAST [...] No. Home sugar checks: (more content not included)...[facility] 06-30-2024 History of Present illness Narrative* Alexus Mendez APRN.[facility] - 06/30/2024 12:56 PM EST This [...] kidney disease) stage 3, GFR 30-59 ml/min ([facility]) 03/24/2019 Constipation Diabetes ([facility]) Gout High phosphate levels 03/24/2019 History of [...] valve calcifi NSTEMI (non-ST elevated myocardial infarction) ([facility]) 03/12/2017 [facility] admit Osteoarthritis Transition of care performed with sharing of clinical summary 04/08/2019 Admit [facility] 03/21/19-03/22/19 Discharge diagnoses chronic kidney disease with worsening creatinine, acute kidney injury Hypokalemia Toxic encephalopathy secondary to Flexeril overusage Type 2 diabetes Ischemic cardiomyopathy Coronary artery disease Ligamental cervical neck strain and acute Pulmonary hypertension Hypertension Pyuria Preadmit: to [facility] ED with slurred speech, lethargy. PAST [...] Behavior normal. LABS: check labs at dialysis- [facility] ASSESSMENT/PLAN: 1. Ischemic cardiomyopathy - ICD9: 414.8, [...] (ASHD) - ICD9: 414.00, ICD10: I25.10 Sees cardiology, Florencia Brian - LIPID PANEL, NONFASTING 6. Chronic kidney disease (CKD), stage V ([facility]) - ICD9: 585.5, ICD10: N18.5 - eGFR: Worsening - On hemodialysis - HEMOGLOBIN - HEMATOCRIT - CREATININE BLD 7. Encounter for immunization - ICD9: V03.89, ICD10: Z23 Declined 8. Gastrointestinal hemorrhage, unspecified gastrointestinal hemorrhage type - ICD9: 578.9, ICD10: K92.2 Stable on pantoprazole - PANTOPRAZOLE 40 MG TABLET,DELAYED RELEASE 9. Type 2 diabetes mellitus without complication, with long-term current use of insulin ([facility]) - ICD9: 250.00, V58.67, ICD10: E11.9, Z79.4 - Control undetermined, due for labs - Continue current medications - LANTUS SOLOSTAR U-100 INSULIN 100 UNIT/ML (3 ML) SUBCUTANEOUS PEN switched from Levemir (don't manufacture- not taking insulin - PEN NEEDLE, DIABETIC 32 GAUGE X 10. PVD (peripheral vascular disease) ([facility]) - ICD9: 443.9, ICD10: I73.9 Stable 11. Hypertension, essential - ICD9: 401.9, ICD10: I10 - Controlled - Recommend home blood pressure monitoring, to bring results to next visit - Encouraged sodium restriction, DASH or Mediterranean diet - Recommend regular aerobic exercise 12. ESRD (end stage renal disease) on dialysis ([facility]) - ICD9: 585.6, V45.11, ICD10: N18.6, Z99.2 - eGFR: Due for labs - Continue dialysis Discussed treatment plan and patient voices understanding. Patient's questions answered appropriately. Medications and potential side effects were discussed and patient voices understanding. Return to the office as scheduled or as needed for worsening/no improvement. Alexus Mendez APRN.CNP documented in this encounterEast [facility] Hospital10-30-2024 NoteHNO ID: [id number] Author: NUPUR DE LA ROSA MD Service: [...] Acute on chronic diastolic congestive heart failure ([facility]) 07/14/2018 [place] (acute kidney injury) ([facility]) 03/24/2019 [place] (acute kidney injury) ([facility]) 03/24/2019 Ankylosing spondylitis ([facility]) CAD (coronary artery disease) Cellulitis Chronic combined systolic and diastolic CHF (congestive heart failure) ([facility]) 03/24/2019 CKD (chronic kidney disease) stage 3, GFR 30-59 ml/min ([facility]) 03/24/2019 Constipation Diabetes ([facility]) Gout High phosphate levels 03/24/2019 History of [...] valve calcifi NSTEMI (non-ST elevated myocardial infarction) ([facility]) 03/12/2017 [facility] admit Osteoarthritis Transition of care performed with sharing of clinical summary 04/08/2019 Admit [facility] 03/21/19-03/22/19 Discharge diagnoses chronic kidney disease with worsening creatinine, acute kidney injury Hypokalemia Toxic encephalopathy secondary to Flexeril overusage Type 2 diabetes Ischemic cardiomyopathy Coronary artery disease Ligamental cervical neck strain and acute Pulmonary hypertension Hypertension Pyuria Preadmit: to [facility] ED with slurred speech, lethargy. PAST [...] ANKLE 3V AP/LAT/OBL RT / PROCEDURE REASON: [id number] * * * * Physician Interpretation * [...] similar in appearance to the previous study Drawing Checker: CARMELA Transcribe Date (more content not included)...[facility] 06-25-2024 History of Present illness Narrative* [...] Acute on chronic diastolic congestive heart failure ([facility]) 07/14/2018 [place] (acute kidney injury) ([facility]) 03/24/2019 [place] (acute kidney injury) ([facility]) 03/24/2019 Ankylosing spondylitis ([facility]) CAD (coronary artery disease) Cellulitis Chronic combined systolic and diastolic CHF (congestive heart failure) ([facility]) 03/24/2019 CKD (chronic kidney disease) stage 3, GFR 30-59 ml/min ([facility]) 03/24/2019 Constipation Diabetes ([facility]) Gout High phosphate levels 03/24/2019 History of [...] NSTEMI (non-ST elevated myocardial infarction) (HCC) 03/12/2017 [facility] admit Osteoarthritis Transition of care performed with sharing of clinical summary 04/08/2019 Admit [facility] 03/21/19-03/22/19 Discharge diagnoses chronic kidney disease with worsening creatinine, acute kidney injury Hypokalemia Toxic encephalopathy secondary to Flexeril overusage Type 2 diabetes Ischemic cardiomyopathy Coronary artery disease Ligamental cervical neck strain and acute Pulmonary hypertension Hypertension Pyuria Preadmit: to [facility] ED with slurred speech, lethargy. PAST [...] ANKLE 3V AP/LAT/OBL RT / PROCEDURE REASON: [id number] * * * * Physician Interpretation * [...] similar in appearance to the previous study Drawing Checker: CARMELA Transcribe Date/Time: Jun 26 2024 10:30A [...] La Rosa M.D. Department of Orthopaedic Surgery [facility] documented in this encounterEast [facility] Hospital10-30-[facility]24 History of Present illness Narrative* Stormy [...] PATIENT PRESENTS WITH AN IMPLANTABLE OR ATTACHED HOSPICE CARE CONSULTANT: No RADIOLOGY DEPARTMENT: General X-ray: Exam(s) Completed: Lower Extremity X- Ray(s): Ankle, Right and Wt. Bearing PERIPHERAL IV DATA: Not applicable SIGNED BY: Robert Maxwell June 25, 2024 11:20 AM documented in this encounterEast [facility] City Hospital10-30-2024 NoteHNO ID: [id number] Author: STORMY NOLAN Tech Service: ? Author Type: Plastering Supervisor Type: Progress Notes Filed: 06/25/2024 11:20 Note [...] PATIENT PRESENTS WITH AN IMPLANTABLE OR ATTACHED HOSPICE CARE CONSULTANT: No RADIOLOGY DEPARTMENT: General X-ray: Exam(s) Completed: Lower Extremity X-Ray(s): Ankle, Right and Wt. Bearing PERIPHERAL IV DATA: Not applicable SIGNED BY: Robert Maxwell June 25, 2024 11:20 [facility] [id number] NoteHNO ID: [id number] Author: NUPUR DE LA ROSA MD Service: [...] Acute on chronic diastolic congestive heart failure ([facility]) 07/14/2018 [place] (acute kidney injury) ([facility]) 03/24/2019 [facility] (acute kidney injury) ([facility]) 03/24/2019 Ankylosing spondylitis ([facility]) CAD (coronary artery disease) Cellulitis Chronic combined systolic and diastolic CHF (congestive heart failure) ([facility]) 03/24/2019 CKD (chronic kidney disease) stage 3, GFR 30-59 ml/min ([facility]) 03/24/2019 Constipation Diabetes ([facility]) Gout High phosphate levels 03/24/2019 History of [...] valve calcifi NSTEMI (non-ST elevated myocardial infarction) ([facility]) 03/12/2017 [facility] admit Osteoarthritis Transition of care performed with sharing of clinical summary 04/08/2019 Admit [facility] 03/21/19-03/22/19 Discharge diagnoses chronic kidney disease with worsening creatinine, acute kidney injury Hypokalemia Toxic encephalopathy secondary to Flexeril overusage Type 2 diabetes Ischemic cardiomyopathy Coronary artery disease Ligamental cervical neck strain and acute Pulmonary hypertension Hypertension Pyuria Preadmit: to [facility] ED with slurred speech, lethargy. PAST [...] [employer] [facility] ortho TOE SURGERY HX Right PHYSICAL [...] La Rosa M.D. Department of Orthopaedic Surgery [facility]09-23-2024 History of Present illness Narrative* Nupur De [...] failure (HCC) 07/14/2018 [place] (acute kidney injury) ([facility]) 03/24/2019 [place] (acute kidney injury) ([facility]) 03/24/2019 Ankylosing spondylitis ([facility]) CAD (coronary artery disease) Cellulitis Chronic combined systolic and diastolic CHF (congestive heart failure) ([facility]) 03/24/2019 CKD (chronic kidney disease) stage 3, GFR 30-59 ml/min ([facility]) 03/24/2019 Constipation Diabetes ([facility]) Gout High phosphate levels 03/24/2019 History of [...] valve calcifi NSTEMI (non-ST elevated myocardial infarction) ([facility]) 03/12/2017 [facility] admit Osteoarthritis Transition of care performed with sharing of clinical summary 04/08/2019 Admit [facility] 03/21/19-03/22/19 Discharge diagnoses chronic kidney disease with worsening creatinine, acute kidney injury Hypokalemia Toxic encephalopathy secondary to Flexeril overusage Type 2 diabetes Ischemic cardiomyopathy Coronary artery disease Ligamental cervical neck strain and acute Pulmonary hypertension Hypertension Pyuria Preadmit: to [facility] ED with slurred speech, lethargy. PAST [...] La Rosa M.D. Department of Orthopaedic Surgery [facility] documented in this encounterEast [facility]09-11-[facility] History of Present illness Narrative* Liat Burger RT(R) - 05/07/2024 2:00 PM EDT Radiology Service [...] PATIENT PRESENTS WITH AN IMPLANTABLE OR ATTACHED HOSPICE CARE CONSULTANT: No RADIOLOGY DEPARTMENT: General X-ray: Exam(s) Completed: Lower Extremity X- Ray(s): Ankle, Right and Wt. Bearing PERIPHERAL IV DATA: Not applicable SIGNED BY: TIKI Dietz) May 07, 2024 1:31 PM documented in this encounterEast [facility] City Hospital09-11-2024 NoteHNO ID: [id number] Author: EVERETTS, LIAT, RT(R) Service: ? Author Type: Technologist Type: [...] PATIENT PRESENTS WITH AN IMPLANTABLE OR ATTACHED HOSPICE CARE CONSULTANT: No RADIOLOGY DEPARTMENT: General X-ray: Exam(s) Completed: Lower Extremity X-Ray(s): Ankle, Right and Wt. Bearing PERIPHERAL IV DATA: Not applicable SIGNED BY: RT Mirela(R) May 07, 2024 1:31 PMCorey [id number] NoteHNO ID: [id number] Author: NUPUR DE LA ROSA MD Service: [...] again noted. Impression: IMPRESSION: Navicular stress fracture. Drawing Checker: PSCLeslye Transcribe Date/Time: May 10 2024 3:02P [...] repeat clinical evaluation Nupur De La Rosa [facility]09-11-2024 History of Present illness Narrative* Nupur [...] again noted. Impression: IMPRESSION: Navicular stress fracture. [facility]ing [facility]er: [facility] Transcribe Date/Time: May 10 2024 3:02P Dictated [...] De La Rosa MD documented in this encounterEast [facility] Hospital08-21-2024 Telephone encounter Note * Telephone Encounter - Isabela Rosado RN - 04/16/2024 9:38 AM EDT Spoke with Patient Doing ok today He iced and elevated all day yesterday and will continue to TTWB He will call back on Sunday with an update, if not needing anything sooner [facility]08-21-2024 Miscellaneous Notes* Telephone Encounter - Isabela [...] to come in to be seen by meand get some new x-rays at that time. [...] advise any other recommendations documented in this encounterEast [facility] Hospital08-21-2024 Telephone encounter Note * Telephone Encounter - Isabela Rosado RN - 04/16/2024 9:21 AM EDT Left message for patient to return call. [facility]08-20-2024 Telephone encounter Note* Telephone Encounter - [...] patient and relayed message. Patient verbalized understanding. [facility]08-20-2024 Telephone encounter Note* Telephone Encounter - [...] would help Please advise any other recommendations [facility]08-07-2024 NoteHNO ID: [id number] Author: NUPUR DE LA ROSA MD Service: [...] are noted. Impression: IMPRESSION: No acute abnormality Drawing Checker: [facility] Transcribe Date/Time: Apr 05 2024 4:22P [...] repeat clinical evaluation Nupur De La Rosa, [facility]08-07-2024 History of Present illness Narrative* Nupur [...] Remote, healed distal femoral fracture with intramedullary miensh again noted. Advanced vascular calcifications are noted. Impression: IMPRESSION: No acute abnormality Drawing Checker: PSCLeslye Transcribe Date/Time: Apr 05 2024 4:22P Dictated [...] De La Rosa MD documented in this encounterEast [facility] Hospital08-07-[facility]24 History of Present illness Narrative* Kassidy [...] PATIENT PRESENTS WITH AN IMPLANTABLE OR ATTACHED HOSPICE CARE CONSULTANT: No RADIOLOGY DEPARTMENT: General X-ray: Exam(s) Completed: Lower Extremity X- Ray(s): Knee, AP / LAT / OBLs Right PERIPHERAL IV DATA: Not applicable SIGNED BY: Robert Casey April 02, 2024 1:37 PM documented in this encounterEast Liverpool City Hospital08-07-2024 NoteHNO ID: [id number] Author: KASSIDY NUNEZ Tech Service: Radiology Author Type: Plastering Supervisor Type: Progress Notes Filed: 04/02/2024 13:37 Note [...] PATIENT PRESENTS WITH AN IMPLANTABLE OR ATTACHED HOSPICE CARE CONSULTANT: No RADIOLOGY DEPARTMENT: General X-ray: Exam(s) Completed: Lower Extremity X-Ray(s): Knee, AP / LAT / OBLs Right PERIPHERAL IV DATA: Not applicable SIGNED BY: Robert Casey April 02, 2024 1:37 PMCorey [id number] Instructions* Patient Instructions* Alexus Mendez APRN.CNP - 03/27/2024 1:02 PM EDT 1) Letter to hemodialysis 2) Follow up in 3 months documented in this encounterEast [facility] City Hospital08-01-2024 NoteHNO ID: [id number] Author: ALEXUS MENDEZ APRN.CNP Service: ? Author Type: Clinical Nurse Specialist Type: Progress Notes Filed: 03/27/2024 13:02 Note Text: This is a 68 year old male who presents today with: Patient presents with: Mass: Pain and lump near belly button for one week. HISTORY OF PRESENT ILLNESS: Mauri Qiunones is a 68 year old male. Patient [...] failure (HCC) 03/24/2019: GARRET (acute kidney injury) ([facility]) 03/24/2019: GARRET (acute kidney injury) ([facility]) No date: Ankylosing spondylitis ([facility]) No date: CAD (coronary artery disease) No date: Cellulitis 03/24/2019: Chronic combined systolic and diastolic CHF (congestive heart failure) ([facility]) 03/24/2019: CKD (chronic kidney disease) stage 3, GFR 30-59 ml/min ([facility]) No date: Constipation No date: Diabetes ([facility]) No date: Gout 03/24/2019: High phosphate levels [...] calcifi 03/12/2017: NSTEMI (non-ST elevated myocardial infarction) ([facility]) Comment: [facility] admit No date: Osteoarthritis 04/08/2019: Transition of care performed with sharing of clinical summary Comment: Admit [facility] 03/21/19-03/22/19 Discharge diagnoses chronic kidney disease with worsening creatinine, acute kidney injury Hypokalemia Toxic encephalopathy secondary to Flexeril overusage Type 2 diabetes Ischemic cardiomyopathy Coronary artery disease Ligamental cervical neck strain and acute Pulmonary hypertension Hypertension Pyuria Preadmit: to [facility] ED with slurred speech, lethargy. PAST [...] elevates) No current facility-ad (more content not included)...[facility] 03-27-2024 History of Present illness Narrative* Alexus Mendez APRN.[facility] - 03/27/2024 12:45 PM EDT This [...] Acute on chronic diastolic congestive heart failure ([facility]) 03/24/2019: GARRET (acute kidney injury) ([facility]) 03/24/2019: GARRET (acute kidney injury) ([facility]) No date: Ankylosing spondylitis ([facility]) No date: CAD (coronary artery disease) No date: Cellulitis 03/24/2019: Chronic combined systolic and diastolic CHF (congestive heart failure) ([facility]) 03/24/2019: CKD (chronic kidney disease) stage 3, GFR 30-59 ml/min ([facility]) No date: Constipation No date: Diabetes ([facility]) No date: Gout 03/24/2019: High phosphate levels [...] calcifi 03/12/2017: NSTEMI (non-ST elevated myocardial infarction) ([facility]) Comment: [facility] admit No date: Osteoarthritis 04/08/2019: Transition of care performed with sharing of clinical summary Comment: Admit [facility] 03/21/19-03/22/19 Discharge diagnoses chronic kidney disease with worsening creatinine, acute kidney injury Hypokalemia Toxic encephalopathy secondary to Flexeril overusage Type 2 diabetes Ischemic cardiomyopathy Coronary artery disease Ligamental cervical neck strain and acute Pulmonary hypertension Hypertension Pyuria Preadmit: to [facility] ED with slurred speech, lethargy. PAST [...] plate and screws.Plate and screws 09/07/17 [facility] No date: TOE SURGERY HX; [...] - ICD9: 414.8, ICD10: I25.5 Follows with [facility] 4. History of coronary artery bypass graft - ICD9: V45.81, ICD10: Z95.1 Follows with [facility] 5. JOHNY (obstructive sleep apnea) - ICD9: [...] needed for worsening/no improvement. documented in this encounterEast [facility] City Hospital07-08-2024 NoteHNO ID: [id number] Author: NUPUR DE LA ROSA MD Service: [...] and possible activity advancement Nupur De La Rosa, [facility]07-08-2024 History of Present illness Narrative* Nupur [...] De La Rosa MD documented in this encounterEast [facility] City Hospital07-08-2024 History of Present illness Narrative* Liat Burger RT(Nader) - 03/03/2024 12:20 PM EDT Radiology Service [...] PATIENT PRESENTS WITH AN IMPLANTABLE OR ATTACHED HOSPICE CARE CONSULTANT: No RADIOLOGY DEPARTMENT: General X-ray: Exam(s) Completed: Lower Extremity X- Ray(s): Knee, AP / Lat / Tunne / Merchant Right PERIPHERAL IV DATA: Not applicable SIGNED BY: TIKI Dietz) March 03, 2024 1:21 PM documented in this encounterEast [facility] City Hospital07-08-2024 NoteHNO ID: [id number] Author: LIAT BURGER RT (R) Service: ? Author Type: Technologist Type: Progress [...] PATIENT PRESENTS WITH AN IMPLANTABLE OR ATTACHED HOSPICE CARE CONSULTANT: No RADIOLOGY DEPARTMENT: General X-ray: Exam(s) Completed: Lower Extremity X-Ray(s): Knee, AP / Lat / Tunne / Merchant Right PERIPHERAL IV DATA: Not applicable SIGNED BY: Liat Burger, RT(R) March 03, 2024 1:21 PMCorey [id number] Telephone encounter Note* Telephone Encounter - Traci Floyd RN - 02/20/2024 2:35 PM EDT I sent a Response Analyticst message to patient regarding a Toradol script being called into pharmacy. [facility]06-26-[facility] Miscellaneous Notes* Telephone Encounter - Traci Floyd RN - 02/20/2024 2:35 PM EDT I sent a Response Analyticst message to patient regarding a Toradol script [...] 20, 2024 12:24 PM documented in this encounterEast [facility] Hospital06-26-2024 Telephone encounter Note * Telephone Encounter - Traci Floyd RN - 02/20/2024 12:52 PM EDT I forwarded the request to your provider. [facility]06-26-[facility] Telephone encounter Note* Telephone Encounter - [...] Kathy Day February 20, 2024 12:24 PM [facility]06-21-2024 NoteHNO ID: [id number] Author: NUPUR DE LA ROSA MD Service: [...] Acute on chronic diastolic congestive heart failure ([facility]) 07/14/2018 GARRET (acute kidney injury) ([facility]) 03/24/2019 GARRET (acute kidney injury) ([facility]) 03/24/2019 Ankylosing spondylitis ([facility]) CAD (coronary artery disease) Cellulitis Chronic combined systolic and diastolic CHF (congestive heart failure) ([facility]) 03/24/2019 CKD (chronic kidney disease) stage 3, GFR 30-59 ml/min ([facility]) 03/24/2019 Constipation Diabetes ([facility]) Gout High phosphate levels 03/24/2019 History of [...] valve calcifi NSTEMI (non-ST elevated myocardial infarction) ([facility]) 03/12/2017 [facility] admit Osteoarthritis Transition of care performed with sharing of clinical summary 04/08/2019 Admit [facility] 03/21/19-03/22/19 Discharge diagnoses chronic kidney disease with worsening creatinine, acute kidney injury Hypokalemia Toxic encephalopathy secondary to Flexeril overusage Type 2 diabetes Ischemic cardiomyopathy Coronary artery disease Ligamental cervical neck strain and acute Pulmonary hypertension Hypertension Pyuria Preadmit: to [facility] ED with slurred speech, lethargy. PAST [...] and screws.Plate and screws 09/07/17 [facility] ortho TOE SURGERY HX Right Current Outpatient [...] detemir U-100 (LEVEMIR FLEXTOU (more content not included)...[facility] History of Present illness Narrative* Nupur [...] Acute on chronic diastolic congestive heart failure ([facility]) 07/14/2018 GARRET (acute kidney injury) ([facility]) 03/24/2019 GARRET (acute kidney injury) ([facility]) 03/24/2019 Ankylosing spondylitis ([facility]) CAD (coronary artery disease) Cellulitis Chronic combined systolic and diastolic CHF (congestive heart failure) ([facility]) 03/24/2019 CKD (chronic kidney disease) stage 3, GFR 30-59 ml/min ([facility]) 03/24/2019 Constipation Diabetes ([facility]) Gout High phosphate levels 03/24/2019 History of [...] valve calcifi NSTEMI (non-ST elevated myocardial infarction) ([facility]) 03/12/2017 [facility] admit Osteoarthritis Transition of care performed with sharing of clinical summary 04/08/2019 Admit [facility] 03/21/19-03/22/19 Discharge diagnoses chronic kidney disease with worsening creatinine, acute kidney injury Hypokalemia Toxic encephalopathy secondary to Flexeril overusage Type 2 diabetes Ischemic cardiomyopathy Coronary artery disease Ligamental cervical neck strain and acute Pulmonary hypertension Hypertension Pyuria Preadmit: to [facility] ED with slurred speech, lethargy. PAST [...] result) Impression: IMPRESSION: Joint effusion. Intact TKA Drawing Checker: CARMELA Transcribe Date/Time: Feb 15 2024 7:41A Dictated by : SONG DE LA GARZA MD ... Last XR Ankle - Impression Only XR ANKLE GENERAL 3V AP/LAT/OBL RIGHT Exam End: 02/13/2024 3:21 PM (Final result) Impression: IMPRESSION: No acute abnormality Drawing Checker: CARMELA Transcribe Date/Time: Feb 15 2024 7:43A Dictated by : SONG DE LA GARZA MD ... OTHER STUDIES: CT scan from outlying facility [...] of brace.. Sheldon Alonso documented in this encounterEast [facility]06-21-2024 Telephone encounter Note * Telephone Encounter - Isabela Rosado RN - 02/15/2024 11:37 AM EDT See MyChart message [facility]06-21-2024 Miscellaneous Notes* Telephone Encounter - Isabela Rosado RN - 02/15/2024 11:37 AM EDT See MyChart message * Telephone Encounter - Isabela Rosado RN - 02/15/2024 10:55 AM EDT Left message for patient to return call. * Telephone Encounter - Luciana Ferguson - 02/15/2024 10:34 AM EDT [facility] is calling Nupur De La Rosa MD [...] calling: self Call patient at: at home [phone] (home) [phone] (work) [phone] (cell) Was an appointment scheduled: No Closing statement: Symptom Call: Thank you for calling [facility], your call is very important. A nurse will call in approximately 2-4 hours during business hours. If this is an emergency, please contact 911. Luciana Ferguson documented in this encounterEast [facility] City Hospital06-21-2024 Telephone encounter Note * Telephone Encounter - Isabela Rosado RN - 02/15/2024 10:55 AM EDT Left message for patient to return call. [facility]06-21-[facility] Telephone encounter Note* Telephone Encounter - Luciana Ferguson - 02/15/2024 10:34 AM EDT [facility] is calling Nupur De La Rosa MD [...] calling: self Call patient at: at home [phone] (home) [phone] (work) [phone] (cell) Was an appointment scheduled: No Closing statement: Symptom Call: Thank you for calling [facility], your call is very important. A nurse will call in approximately 2-4 hours during business hours. If this is an emergency, please contact 911. Luciana Ferguson [facility]06-19-2024 NoteHNO ID: [id number] Author: FLAVIO RIVERA Cast Tech Service: ? Author Type: Vp Of Technology Type: Progress Notes Filed: 02/15/2024 17:28 Note Text: PT ASSESSMENT - CASTING ROOM Mauri presents for Application of brace. Applied X-ROM knee support to Right knee set at 10 degrees flexion Patient has been instructed in Care of brace.. [facility] History of Present illness Narrative* Kassidy [...] PATIENT PRESENTS WITH AN IMPLANTABLE OR ATTACHED HOSPICE CARE CONSULTANT: No RADIOLOGY DEPARTMENT: General X-ray: Exam(s) Completed: Lower Extremity X- Ray(s): Knee, AP / LAT / OBLs Right and Ankle, Right PERIPHERAL IV DATA: Not applicable SIGNED BY: Robert Casey February 13, 2024 3:21 PM documented in this encounterEast [facility] City Hospital06-19-2024 NoteHNO ID: [id number] Author: KASSIDY NUNEZ Tech Service: Radiology Author Type: Plastering Supervisor Type: Progress Notes Filed: 02/13/2024 15:21 Note [...] PATIENT PRESENTS WITH AN IMPLANTABLE OR ATTACHED HOSPICE CARE CONSULTANT: No RADIOLOGY DEPARTMENT: General X-ray: Exam(s) Completed: Lower Extremity X-Ray(s): Knee, AP / LAT / OBLs Right and Ankle, Right PERIPHERAL IV DATA: Not applicable SIGNED BY: Robert Casey February 13, 2024 3:21 PMCorey [id number] Miscellaneous Notes* Telephone Encounter - Luciana Ferguson - 02/11/2024 9:50 AM EDT Patient will stay on scheduled * Telephone Encounter - Isabela Rosado RN - 02/07/2024 7:46 AM EDT Pt has been scheduled in a locked slot The locked slots are for DR. MCCONNELL OFFICE STAFF ONLY (please see heading) These are to be used ONLY when Dr De La Rosa is international organizer for [place] or [facility]-please do an error report on the PSS that scheduled this Jennifer Few, Please call patient and reschedule with another provider in a correct slot documented in this encounterEast [facility] City Hospital06-17-2024 Telephone encounter Note * Telephone Encounter - Luciana Ferguson - 02/11/2024 9:50 AM EDT Patient will stay on scheduled [facility]06-[facility] Telephone encounter Note* Telephone Encounter - Isabela Rosado RN - 02/07/2024 7:46 AM EDT Pt has been scheduled in a locked slot The locked slots are for DR. MCCONNELL OFFICE STAFF ONLY (please see heading) These are to be used ONLY when Dr De La Rosa is international organizer for [place] or [facility]-please do an error report on the PSS that scheduled this Jennifer Juarez, Please call patient and reschedule with another provider in a correct slot [facility]06-11-20[facility] Telephone encounter Note* Telephone Encounter - Rigoberto Gould MD - 02/05/2024 11:30 AM EDT noted [facility]06-11-20[facility] Miscellaneous Notes* Telephone Encounter - Rigoberto Gould MD - 02/05/2024 11:30 AM EDT noted * Telephone Encounter - Rebecca Moe LPN - 02/05/2024 11:24 AM EDT Rozina Sheth from [facility] calling patient had fall on 02/01 in [place] and has fractured tibial plateau right leg. He is back at home now. He and his are trying to get him in with Ramón Sohail at [facility] he has seen previously. He needs no referral. documented in this encounterEast [facility] Hospital06-11-2024 Telephone encounter Note * Telephone Encounter - Rebecca Moe LPN - 02/05/2024 11:24 AM EDT Rozina Sheth from [facility] calling patient had fall on 02/01 in [place] and has fractured tibial plateau right leg. He is back at home now. He and his are trying to get him in with Ramón Sohail at [facility] he has seen previously. He needs no referral. [facility]05-20-[facility] History of Present illness Narrative* Doreen [...] 14, 2024 2:24 PM documented in this encounterEast [facility] City Hospital05-03-2024 Instructions* Patient Instructions* Maki Knight MA - 12/28/2023 3:02 PM EDT Leave the dressing on until it comes loose in a couple days. Can shower as usual. Suture removal inapproximately 3 weeks. Call office with any concerns in the interim. [phone] Nurse international organizer over the weekend. Specimen sent for pathology. documented in this encounterEast Liverpool City Hospital05-03-2024 History of Present illness Narrative* Maki [...] Rushing MD - 12/28/2023 2:45 PM EDT [facility] is here for excision of skin lesion [...] dry. Patient acknowledges above documented in this encounterEast [facility] City Hospital04-12-2024 Nurse Note* Maki Knight MA - [...] none Maki Knight MA documented in this encounterEast [facility] City Hospital04-12-2024 Instructions* Patient Instructions* Maki Knight MA - 12/07/2023 3:15 PM EDT documented in this encounterEast [facility] City Hospital04-12-2024 History of Present illness Narrative* Melanie [...] Acute on chronic diastolic congestive heart failure ([facility]) 07/14/2018 GARRET (acute kidney injury) ([facility]) 03/24/2019 GARRET (acute kidney injury) ([facility]) 03/24/2019 Ankylosing spondylitis ([facility]) CAD (coronary artery disease) Cellulitis Chronic combined systolic and diastolic CHF (congestive heart failure) ([facility]) 03/24/2019 CKD (chronic kidney disease) stage 3, GFR 30-59 ml/min ([facility]) 03/24/2019 Constipation Diabetes ([facility]) Gout High phosphate levels 03/24/2019 History of [...] NSTEMI (non-ST elevated myocardial infarction) (HCC) 03/12/2017 [facility] admit Osteoarthritis Transition of care performed with sharing of clinical summary 04/08/2019 Admit [facility] 03/21/19-03/22/19 Discharge diagnoses chronic kidney disease with worsening creatinine, acute kidney injury Hypokalemia Toxic encephalopathy secondary to Flexeril overusage Type 2 diabetes Ischemic cardiomyopathy Coronary artery disease Ligamental cervical neck strain and acute Pulmonary hypertension Hypertension Pyuria Preadmit: to [facility] ED with slurred speech, lethargy. PAST [...] entered by the nurse and reviewed by mi Nursing Notes: Maki Knight MA 12/07/2023 4:01 [...] Low Melanie Rushing MD documented in this encounterEast [facility] City Hospital03-14-2024 History of Present illness Narrative* Ivet Padilla, RT(R) - 11/08/2023 2:50 PM EDT Radiology [...] PATIENT PRESENTS WITH AN IMPLANTABLE OR ATTACHED HOSPICE CARE CONSULTANT: No RADIOLOGY DEPARTMENT: General X-ray: Exam(s) Completed: Lower Extremity X- Ray(s): Tibia Fibula, Right PERIPHERAL IV DATA: Not applicable SIGNED BY: Ivet Padilla RT(R) November 08, 2023 3:12 PM documented in this encounterEast Liverpool City Hospital03-14-2024 Instructions* Patient Instructions* Alexus Mendez APRN.CNS - 11/08/2023 2:35 PM EDT 1) Get Xray right tibia 2) Referred to general surgery 3) Schedule follow up in 6 weeks documented in this encounterEast [facility] City Hospital03-14-2024 History of Present illness Narrative* Alexus [...] Acute on chronic diastolic congestive heart failure ([facility]) 07/14/2018 GARRET (acute kidney injury) ([facility]) 03/24/2019 GARRET (acute kidney injury) ([facility]) 03/24/2019 Ankylosing spondylitis ([facility]) CAD (coronary artery disease) Cellulitis Chronic combined systolic and diastolic CHF (congestive heart failure) ([facility]) 03/24/2019 CKD (chronic kidney disease) stage 3, GFR 30-59 ml/min ([facility]) 03/24/2019 Constipation Diabetes ([facility]) Gout High phosphate levels 03/24/2019 History of [...] valve calcifi NSTEMI (non-ST elevated myocardial infarction) ([facility]) 03/12/2017 [facility] admit Osteoarthritis Transition of care performed with sharing of clinical summary 04/08/2019 Admit [facility] 03/21/19-03/22/19 Discharge diagnoses chronic kidney disease with worsening creatinine, acute kidney injury Hypokalemia Toxic encephalopathy secondary to Flexeril overusage Type 2 diabetes Ischemic cardiomyopathy Coronary artery disease Ligamental cervical neck strain and acute Pulmonary hypertension Hypertension Pyuria Preadmit: to [facility] ED with slurred speech, lethargy. PAST [...] as needed for worsening/no improvement. Alexus Mendez APRN.CNS The patient indicates understanding of these issues and agrees with the plan. documented in this encounterEast [facility] City Hospital09-21-2023 History of Present illness Narrative* Robinson [...] COVID before visiting his wifeis in a half-way who is having surgery next week. Discussed supportive care with isolation and masking to reduce transmission of COVID and other viral illnesses. Robinson Henao MD documented in this encounterEast [facility] City Hospital08-28-2023 [facility] 04-23-2023 [facility]08-25-2023 [facility]08-25-2023 [facility]05-11-2023 [facility]05-11-2023 [facility]05-10-2023 [facility]05-10-2023 [facility]05-09-2023 [facility]05-09-2023 [facility] 01-01-2023 NoteHNO ID: [id number] Author: Oralia Byrd RN Service: ? Author Type: Registered Nurse Type: Nursing Progress Note Filed: 01/01/2023 4:19 PM Note Text: O2 86 % on room air. Placed 2L NC on patient. Dr. Blanco notified via [employer] secure chat.[facility]05-08-2023 Miscellaneous Notes* Telephone Encounter - Aditya Summers RN - 01/01/2023 10:45 AM EDT Erica Lim, phoned to report patient was admitted to [facility] today to have femur plate (where had fracture last year) removed and replaced. documented in this encounterEast [facility] City Hospital05-08-2023 [facility] 01-01-2023 NoteHNO ID: [id number] Author: Vandana Sands RN Service: Nursing Author Type: Registered Nurse Type: Nursing Progress Note Filed: 01/01/2023 8:12 AM Note Text: Spinal performed by Dr. Montanez from [id number].[facility]05-08-2023 [facility]05-05-2023 [facility]05-05-2023 [facility]03-06-2023 History of Present illness Narrative* Rigoberto [...] Acute on chronic diastolic congestive heart failure ([facility]) 07/14/2018 GARRET (acute kidney injury) ([facility]) 03/24/2019 GARRET (acute kidney injury) ([facility]) 03/24/2019 Ankylosing spondylitis ([facility]) CAD (coronary artery disease) Cellulitis Chronic combined systolic and diastolic CHF (congestive heart failure) ([facility]) 03/24/2019 CKD (chronic kidney disease) stage 3, GFR 30-59 ml/min ([facility]) 03/24/2019 Constipation Diabetes ([facility]) Gout High phosphate levels 03/24/2019 History of [...] valve calcifi NSTEMI (non-ST elevated myocardial infarction) ([facility]) 03/12/2017 [facility] admit Osteoarthritis Transition of care performed with sharing of clinical summary 04/08/2019 Admit [facility] 03/21/19-03/22/19 Discharge diagnoses chronic kidney disease with worsening creatinine, acute kidney injury Hypokalemia Toxic encephalopathy secondary to Flexeril overusage Type 2 diabetes Ischemic cardiomyopathy Coronary artery disease Ligamental cervical neck strain and acute Pulmonary hypertension Hypertension Pyuria Preadmit: to [facility] ED with slurred speech, lethargy. PAST [...] - stable. 2. PVD (peripheral vascular disease) ([facility]) - ICD9: 443.9, ICD10: I73.9 - continue current meds. 3. 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 due to underlying condition, unspecified proliferative retinopathy type ([facility]) - ICD9: 249.50, 362.02, ICD10: E08.3593 - stable. 4. ESRD (end stage renal disease) on dialysis ([facility]) - ICD9: 585.6, V45.11, ICD10: N18.6, Z99.2 - stable. 5. Chronic combined systolic and diastolic CHF (congestive heart failure) ([facility]) - ICD9: 428.42, 428.0, ICD10: I50.42 - stable. 6. Ankylosing spondylitis of multiple sites in spine ([facility]) - ICD9: 720.0, ICD10: M45.0 - continue [...] complication, with long-term current use of insulin ([facility]) - ICD9: 250.00, V58.67, ICD10: E11.9, Z79.4 - HGB A1C - LIPID PANEL, NONFASTING Rigoberto Gould MD documented in this encounterEast [facility]12-05-[facility]22 History of Present illness Narrative* Rigoberto Gould MD - 07/31/2022 11:22 AM EST Patient presents with: Follow Up HPI: Patient presents today for office visit for follow up. ORIF right femur fx Ramón Glass [facility] [place] Which facility: [facility] Date of visit: 04/28/22 surgery fx happened on 04/22 Was at [facility] and left there on 06/01/22 Finally able [...] Acute on chronic diastolic congestive heart failure ([facility]) 07/14/2018 GARRET (acute kidney injury) ([facility]) 03/24/2019 GARRET (acute kidney injury) ([facility]) 03/24/2019 Ankylosing spondylitis ([facility]) CAD (coronary artery disease) Cellulitis Chronic combined systolic and diastolic CHF (congestive heart failure) ([facility]) 03/24/2019 CKD (chronic kidney disease) stage 3, GFR 30-59 ml/min ([facility]) 03/24/2019 Constipation Diabetes ([facility]) Gout High phosphate levels 03/24/2019 History of [...] valve calcifi NSTEMI (non-ST elevated myocardial infarction) ([facility]) 03/12/2017 [facility] admit Osteoarthritis Transition of care performed with sharing of clinical summary 04/08/2019 Admit [facility] 03/21/19-03/22/19 Discharge diagnoses chronic kidney disease with worsening creatinine, acute kidney injury Hypokalemia Toxic encephalopathy secondary to Flexeril overusage Type 2 diabetes Ischemic cardiomyopathy Coronary artery disease Ligamental cervical neck strain and acute Pulmonary hypertension Hypertension Pyuria Preadmit: to [facility] ED with slurred speech, lethargy. PAST [...] treating. Rigoberto Gould MD documented in this encounterEast [facility] City Hospital11-30-2022 Miscellaneous Notes* Telephone Encounter - Florina [...] for referral to Dr. Paiz, GASTRO @ [facility] for recurrent C-Diff. Kristan Cassidy RN documented in this encounterEast Liverpool City Hospital11-06-2022 Miscellaneous Notes* Telephone Encounter - Aditya [...] Provider: Aditya DAVIS PA-C documented in this encounterEast Liverpool City Hospital11-03-2022 Miscellaneous Notes* Telephone Encounter - Garrison Olmedo Ma - 06/29/2022 6:55 PM EDT Patient's was notified of provider's message. * Telephone Encounter - Aditya Davis PA-C - 06/29/2022 6:42 PM EDT Please check stool: must be liquid Telephone on 06/29/22 CDIFF PCR W/RFLX EIA IF POSITIVE If positive a third time would recommend fidaxomycin instead of vancomycin. Thanks, Albert Davis PA-C * Telephone Encounter - Susu Hernandez [...] appointment. Susu Hernandez RN documented in this encounterEast Liverpool City Hospital10-28-2022 Miscellaneous Notes* Telephone Encounter - Aditya [...] daily for 7 days, he was at [facility] and came home. said his stool is loose foul smelling 1 to 4 times daily still. Asking if needs to have another round of Vancomycin? Patient uses [email or web address] for his pharmacy. Please advise documented in this encounterEast Liverpool City Hospital10-13-2022 Miscellaneous Notes* Telephone Encounter - Kristan Cassidy RN - 06/08/2022 4:24 PM EDT JD Ward @ [facility] calling with plan of care. PT will see patient 2 x/week for three weeks for strength, ROM and pain management. Kristan Cassidy RN documented in this encounterEast Liverpool City Hospital10-10-2022 Miscellaneous Notes* Telephone Encounter - Alicia Cantu LPN - 06/05/2022 3:47 PM EDT Completed. * Telephone Encounter - Aditya Summers RN - 06/05/2022 11:50 AM EDT [facility]- [facility]/Carley, phoned to let provider know- patient went home from [facility] on 06-01-22, and has f/u appt with Dr. Gould today. Asking if she can have a copy of those ov notes, to haveupdated medication list. Please fax to [phone] documented in this encounterEast Liverpool City Hospital10-10-2022 History of Present illness Narrative* Rigoberto Gould MD - 06/05/2022 2:30 PM EDT Patient presents with: Hospital F/U HOSPITAL/ER FOLLOW UP: Reason for visit: ORIF right femur fx [facility] [place] Which facility: [facility] Date of visit: 04/28/22 surgery fx happened on 04/22 Was at [facility] and left there on 06/01/22 Current symptoms: [...] the metalazone. See below. Has surgery per [facility] [place]. Just saw them recently. No weight bearing until Jul 27. He was at [facility] from 05/08-06/01/22. He left the [...] attempting to set up an appt with [facility]. He had an old compression deformity on xray but he has no pain. No black or bloody stools. No stomach pain. Was still on oral vanco for c diff. Does seem to be improving. Still doing dialysis three times a week per Dr Jackson. Still working on weight. They did not want to follow up with gi in [place]. Suggested they follow with them. See Discharge summary from [facility]-admitted 04/23 and discharged 05/08/22 HPI: Patient presents [...] right knee pain for which he presented [facility] where he was found to have right femur fracture for which he was transferred to [facility] for further management. Please refer to [...] Advised outpatient stress test afterfollowing with his uniform attendant Dr. Duran. Advised to start aspirin 1 week later if no evidenceof bleeding and if hemoglobin is stable and discuss with GI before resuming aspirin. Patient was noted to have incidental T9 compression fracture (age-indeterminate, likely chronic) and was seen by spinal orthopedics. Advised outpatient follow-up as needed. PT/OT advised half-way placement which was arranged through social sciences professor. Otherwise he is stable for discharge today [...] Acute on chronic diastolic congestive heart failure ([facility]) 07/14/2018 G[place]RET (acute kidney injury) ([facility]) 03/24/2019 GARRET (acute kidney injury) ([facility]) 03/24/2019 Ankylosing spondylitis ([facility]) CAD (coronary artery disease) Cellulitis Chronic combined systolic and diastolic CHF (congestive heart failure) ([facility]) 03/24/2019 CKD (chronic kidney disease) stage 3, GFR 30-59 ml/min ([facility]) 03/24/2019 Constipation Diabetes ([facility]) Gout High phosphate levels 03/24/2019 History of [...] valve calcifi NSTEMI (non-ST elevated myocardial infarction) ([facility]) 03/12/2017 [facility] admit Osteoarthritis Transition of care performed with sharing of clinical summary 04/08/2019 Admit [facility] 03/21/19-03/22/19 Discharge diagnoses chronic kidney disease with worsening creatinine, acute kidney injury Hypokalemia Toxic encephalopathy secondary to Flexeril overusage Type 2 diabetes Ischemic cardiomyopathy Coronary artery disease Ligamental cervical neck strain and acute Pulmonary hypertension Hypertension Pyuria Preadmit: to [facility] ED with slurred speech, lethargy. PAST [...] GASTROENTEROLOGY Rigoberto Gould MD documented in this encounterEast Liverpool City Hospital09-13-2022 Miscellaneous Notes* Telephone Encounter - Farrah Hastings RN - 05/09/2022 10:36 AM EDT [facility] calls to report that patient was transferred to [facility]. Farrah Hastings RN * Telephone Encounter - Bryce Landin RN - 04/25/2022 10:48 AM EDT Rozina Sheth from [facility] called in and wanted to let provider know that Pt went into [facility] on Sunday for a fractured femur. He is was unable to have surgery done at this time because he had a GI bleed. They have fixed that now just have to wait for his counts to come up before they can complete the surgery. She reports she will call and let providers office know when Pt comes home. documented in this encounterEast Liverpool City Hospital09-12-2022 [facility] 05-07-2022 [facility]09-10-2022 [facility]09-09-2022 [facility]09-09-2022 [facility]09-08-2022 [facility]09-08-2022 NoteHNO ID: [id number] Author: Esther Heart RN Service: Nursing Author Type: Registered Nurse Type: Progress Notes Filed: 05/04/2022 10:21 AM Note Text: Pt is resting in bed at this time no complaints noted. Call light in reach. [facility]09-07-2022 [facility] 05-03-2022 [facility]09-06-2022 [facility]09-06-2022 [facility]09-05-2022 [facility]09-05-2022 [facility]09-04-2022 History of Past illness Narrative* Problem [...] of clinical summary 04/08/2019 04/18/2019 Overview: Admit [facility] 03/21/19-03/22/19 Discharge diagnoses chronic kidney disease with worsening creatinine, acute kidney injury Hypokalemia Toxic encephalopathy secondary to Flexeril overusage Type 2 diabetes Ischemic cardiomyopathy Coronary artery disease Ligamental cervical neck strain and acute Pulmonary hypertension Hypertension Pyuria Preadmit: to [facility] ED with slurred speech, lethargy. Malnutrition [...] of this encounter (statuses as of 10/30/2022) [facility]09-04-2022 History of Past illness Narrative* Problem [...] of clinical summary 04/08/2019 04/18/2019 Overview: Admit [facility] 03/21/19-03/22/19 Discharge diagnoses chronic kidney disease with worsening creatinine, acute kidney injury Hypokalemia Toxic encephalopathy secondary to Flexeril overusage Type 2 diabetes Ischemic cardiomyopathy Coronary artery disease Ligamental cervical neck strain and acute Pulmonary hypertension Hypertension Pyuria Preadmit: to [facility] ED with slurred speech, lethargy. Malnutrition [...] of this encounter (statuses as of 01/05/2023) [facility]09-04-[facility] History of Past illness Narrative* Problem [...] of clinical summary 04/08/2019 04/18/2019 Overview: Admit [facility] 03/21/19-03/22/19 Discharge diagnoses chronic kidney disease with worsening creatinine, acute kidney injury Hypokalemia Toxic encephalopathy secondary to Flexeril overusage Type 2 diabetes Ischemic cardiomyopathy Coronary artery disease Ligamental cervical neck strain and acute Pulmonary hypertension Hypertension Pyuria Preadmit: to [facility] ED with slurred speech, lethargy. Malnutrition [...] of this encounter (statuses as of 05/18/2023) [facility]-04-[facility] History of Past illness Narrative* Problem [...] of clinical summary 04/08/2019 04/18/2019 Overview: Admit [facility] 03/21/19-03/22/19 Discharge diagnoses chronic kidney disease with worsening creatinine, acute kidney injury Hypokalemia Toxic encephalopathy secondary to Flexeril overusage Type 2 diabetes Ischemic cardiomyopathy Coronary artery disease Ligamental cervical neck strain and acute Pulmonary hypertension Hypertension Pyuria Preadmit: to [facility] ED with slurred speech, lethargy. Malnutrition [...] of this encounter (statuses as of 11/08/2023) [facility]09-04-[facility] History of Past illness Narrative* Problem [...] of clinical summary 04/08/2019 04/18/2019 Overview: Admit [facility] 03/21/19-03/22/19 Discharge diagnoses chronic kidney disease with worsening creatinine, acute kidney injury Hypokalemia Toxic encephalopathy secondary to Flexeril overusage Type 2 diabetes Ischemic cardiomyopathy Coronary artery disease Ligamental cervical neck strain and acute Pulmonary hypertension Hypertension Pyuria Preadmit: to [facility] ED with slurred speech, lethargy. Malnutrition [...] of this encounter (statuses as of 12/11/2023) [facility]09-04-2022 [facility]09-04-2022 [facility]09-04-2022 [facility]09-03-2022 [facility] 04-29-2022 [facility]09-03-2022 [facility]09-02-2022 [facility]09-02-2022 [facility]09-01-2022 [facility]09-01-2022 [facility]08-31-2022 [facility]08-31-2022 [facility]08-31-2022 [facility] 04-26-2022 [facility]08-30-2022 [facility]08-16-2022 Miscellaneous Notes* Telephone Encounter - Oralia Monzon - 04/11/2022 4:09 PM EDT ----- Message from Rigoberto Gould MD sent at 04/10/2022 4:53 PM EDT ----- Undergoes dialysis. Can forward labs to his chain carrier. documented in this encounterEast Liverpool City Hospital08-04-2022 Miscellaneous Notes* Telephone Encounter - Florina [...] been placed. Thank you. documented in this encounterEast Liverpool City Hospital07-11-2022 History of Present illness Narrative* Jensen [...] PM EDT Pre-Tx Evaluation Kidney 03/06/2022 Mauri Quinones [id number] Chief Complaint: Chief Complaint Patient presents with Kidney Recipient Evaluation HPI: I saw Mauri Quinones in our pre transplant office for a [...] file for this patient. documented in this encounterOhio Valley Surgical Hospital07-11-2022 Instructions* Patient Instructions* Jensen Osei RN [...] contact your coordinator QUYEN Riojas, RN at [phone] if you have any additional questions. CTC fax number [phone] Next Steps: During your evaluation, orders for the following diagnostic testing were placed as part of your pre-kidney transplant evaluation work-up. You are responsible to schedule these tests on dates and times that work best with your schedule. You may schedule these tests by calling [facility] (P: [phone]). We will request images from your recent [...] these tests when appropriate and contact your Retail Service Lead Merchandiser upon completion. Colonoscopy: This can be scheduled through your PCP, or, if you choose, you may schedule through [facility] by calling (P: [phone]); Dental: Please schedule this through your dental care provider; Please Note: All required diagnostic testing, as well as any additional follow- up (referrals, consultations, etc) must be completed prior to your candidacy as a potential kidney transplant recipient being presented to the Patient Selection Committee. Once the recommended testing has been completed, your Retail Service Lead Merchandiser will contact you regarding a potential date [...] with the Living Kidney Donor Coordinators (P: [phone]; P: [phone]) or email them at: [email or web address] documented in this encounterOhio Valley Surgical Hospital06-27-2022 History of Present illness Narrative* Heather Hernandez [...] 20, 2022 10:01 AM documented in this encounterEast Liverpool City Hospital04-08-2022 History of Present illness Narrative* Rigoberto Gould MD - 12/02/2021 1:19 PM EDT Patient presents with: Discussion: discontinuing oxygen HPI: Patient presents today for office visit for above. Has not been seen in office since virtual visit nearly 14 months ago. Was seen by Albert Davis via virtual visit. Was in [facility] at that time for chf and [...] subcutaneously w MEALS. 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) misc 1 Each [...] Acute on chronic diastolic congestive heart failure ([facility]) 07/14/2018 GARRET (acute kidney injury) ([facility]) 03/24/2019 G[place]RET (acute kidney injury) ([facility]) 03/24/2019 Ankylosing spondylitis ([facility]) CAD (coronary artery disease) Cellulitis Chronic combined systolic and diastolic CHF (congestive heart failure) ([facility]) 03/24/2019 CKD (chronic kidney disease) stage 3, GFR 30-59 ml/min ([facility]) 03/24/2019 Constipation Diabetes ([facility]) Gout High phosphate levels 03/24/2019 History of [...] NSTEMI (non-ST elevated myocardial infarction) ([facility]) 03/12/2017 [facility] admit Osteoarthritis Transition of care performed with sharing of clinical summary 04/08/2019 Admit [facility] 03/21/19 03/22/19 Discharge diagnoses chronic kidney disease with worsening creatinine, acute kidney injury Hypokalemia Toxic encephalopathy secondary to Flexeril overusage Type 2 diabetes Ischemic cardiomyopathy Coronary artery disease Ligamental cervical neck strain and acute Pulmonary hypertension Hypertension Pyuria Preadmit: to [facility] ED with slurred speech, lethargy. PAST [...] unspecified whether stage 3a or 3b CKD ([facility]) - ICD9: 285.21, 585.3, ICD10: N18.30, D63.1 - per nephro 8. Chronic kidney disease, stage IV (severe) ([facility]) - ICD9: 585.4, ICD10: N18.4 9. 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 Rigoberto Gould RTO in six month and prn. Medical Decision Making documented in this encounterEast Liverpool City Hospital03-21-2022 Miscellaneous Notes* Telephone Encounter - Rebecca [...] need done. Please advise documented in this encounterEast Liverpool City Hospital02-10-2021 History of Past illness Narrative* Problem [...] of clinical summary 04/08/2019 04/18/2019 Overview: Admit [facility] 03/21/19 03/22/19 Discharge diagnoses chronic kidney disease with worsening creatinine, acute kidney injury Hypokalemia Toxic encephalopathy secondary to Flexeril overusage Type 2 diabetes Ischemic cardiomyopathy Coronary artery disease Ligamental cervical neck strain and acute Pulmonary hypertension Hypertension Pyuria Preadmit: to [facility] ED with slurred speech, lethargy. Malnutrition [...] of this encounter (statuses as of 12/02/2021) [facility]02-10-[facility] History of Past illness Narrative* Problem [...] of clinical summary 04/08/2019 04/18/2019 Overview: Admit [facility] 03/21/19 03/22/19 Discharge diagnoses chronic kidney disease with worsening creatinine, acute kidney injury Hypokalemia Toxic encephalopathy secondary to Flexeril overusage Type 2 diabetes Ischemic cardiomyopathy Coronary artery disease Ligamental cervical neck strain and acute Pulmonary hypertension Hypertension Pyuria Preadmit: to [facility] ED with slurred speech, lethargy. Malnutrition [...] of this encounter (statuses as of 02/20/2022) [facility]02-[facility] History of Past illness Narrative* Problem [...] of clinical summary 04/08/2019 04/18/2019 Overview: Admit [facility] 03/21/19 03/22/19 Discharge diagnoses chronic kidney disease with worsening creatinine, acute kidney injury Hypokalemia Toxic encephalopathy secondary to Flexeril overusage Type 2 diabetes Ischemic cardiomyopathy Coronary artery disease Ligamental cervical neck strain and acute Pulmonary hypertension Hypertension Pyuria Preadmit: to [facility] ED with slurred speech, lethargy. Malnutrition [...] of this encounter (statuses as of 03/30/2022) [facility]02-[facility] History of Past illness Narrative* Problem [...] of clinical summary 04/08/2019 04/18/2019 Overview: Admit [facility] 03/21/19-03/22/19 Discharge diagnoses chronic kidney disease with worsening creatinine, acute kidney injury Hypokalemia Toxic encephalopathy secondary to Flexeril overusage Type 2 diabetes Ischemic cardiomyopathy Coronary artery disease Ligamental cervical neck strain and acute Pulmonary hypertension Hypertension Pyuria Preadmit: to [facility] ED with slurred speech, lethargy. Malnutrition [...] of this encounter (statuses as of 06/05/2022) [facility]02-[facility] History of Past illness Narrative* Problem [...] of clinical summary 04/08/2019 04/18/2019 Overview: Admit [facility] 03/21/19-03/22/19 Discharge diagnoses chronic kidney disease with worsening creatinine, acute kidney injury Hypokalemia Toxic encephalopathy secondary to Flexeril overusage Type 2 diabetes Ischemic cardiomyopathy Coronary artery disease Ligamental cervical neck strain and acute Pulmonary hypertension Hypertension Pyuria Preadmit: to [facility] ED with slurred speech, lethargy. Malnutrition [...] of this encounter (statuses as of 06/05/2022) [facility] History of Past illness Narrative* Problem [...] of clinical summary 04/08/2019 04/18/2019 Overview: Admit [facility] 03/21/19-03/22/19 Discharge diagnoses chronic kidney disease with worsening creatinine, acute kidney injury Hypokalemia Toxic encephalopathy secondary to Flexeril overusage Type 2 diabetes Ischemic cardiomyopathy Coronary artery disease Ligamental cervical neck strain and acute Pulmonary hypertension Hypertension Pyuria Preadmit: to [facility] ED with slurred speech, lethargy. Malnutrition [...] of this encounter (statuses as of 06/16/2022) [facility] History of Past illness Narrative* Problem [...] of clinical summary 04/08/2019 04/18/2019 Overview: Admit [facility] 03/21/19-03/22/19 Discharge diagnoses chronic kidney disease with worsening creatinine, acute kidney injury Hypokalemia Toxic encephalopathy secondary to Flexeril overusage Type 2 diabetes Ischemic cardiomyopathy Coronary artery disease Ligamental cervical neck strain and acute Pulmonary hypertension Hypertension Pyuria Preadmit: to [facility] ED with slurred speech, lethargy. Malnutrition [...] of this encounter (statuses as of 06/19/2022) [facility]02-10-[facility]21 History of Past illness Narrative* Problem [...] of clinical summary 04/08/2019 04/18/2019 Overview: Admit [facility] 03/21/19-03/22/19 Discharge diagnoses chronic kidney disease with worsening creatinine, acute kidney injury Hypokalemia Toxic encephalopathy secondary to Flexeril overusage Type 2 diabetes Ischemic cardiomyopathy Coronary artery disease Ligamental cervical neck strain and acute Pulmonary hypertension Hypertension Pyuria Preadmit: to [facility] ED with slurred speech, lethargy. Malnutrition [...] of this encounter (statuses as of 06/23/2022) [facility]02-10-2021 History of Past illness Narrative* Problem [...] of clinical summary 04/08/2019 04/18/2019 Overview: Admit [facility] 03/21/19-03/22/19 Discharge diagnoses chronic kidney disease with worsening creatinine, acute kidney injury Hypokalemia Toxic encephalopathy secondary to Flexeril overusage Type 2 diabetes Ischemic cardiomyopathy Coronary artery disease Ligamental cervical neck strain and acute Pulmonary hypertension Hypertension Pyuria Preadmit: to [facility] ED with slurred speech, lethargy. Malnutrition [...] of this encounter (statuses as of 06/29/2022) [facility] History of Past illness Narrative* Problem [...] of clinical summary 04/08/2019 04/18/2019 Overview: Admit [facility] 03/21/19-03/22/19 Discharge diagnoses chronic kidney disease with worsening creatinine, acute kidney injury Hypokalemia Toxic encephalopathy secondary to Flexeril overusage Type 2 diabetes Ischemic cardiomyopathy Coronary artery disease Ligamental cervical neck strain and acute Pulmonary hypertension Hypertension Pyuria Preadmit: to [facility] ED with slurred speech, lethargy. Malnutrition [...] of this encounter (statuses as of 07/02/2022) [facility] History of Past illness Narrative* Problem [...] of clinical summary 04/08/2019 04/18/2019 Overview: Admit [facility] 03/21/19-03/22/19 Discharge diagnoses chronic kidney disease with worsening creatinine, acute kidney injury Hypokalemia Toxic encephalopathy secondary to Flexeril overusage Type 2 diabetes Ischemic cardiomyopathy Coronary artery disease Ligamental cervical neck strain and acute Pulmonary hypertension Hypertension Pyuria Preadmit: to [facility] ED with slurred speech, lethargy. Malnutrition [...] of this encounter (statuses as of 07/31/2022) [facility]-10[facility] History of Past illness Narrative* Problem [...] of clinical summary 04/08/2019 04/18/2019 Overview: Admit [facility] 03/21/19-03/22/19 Discharge diagnoses chronic kidney disease with worsening creatinine, acute kidney injury Hypokalemia Toxic encephalopathy secondary to Flexeril overusage Type 2 diabetes Ischemic cardiomyopathy Coronary artery disease Ligamental cervical neck strain and acute Pulmonary hypertension Hypertension Pyuria Preadmit: to [facility] ED with slurred speech, lethargy. Malnutrition [...] of this encounter (statuses as of 08/10/2022) [facility] History of Past illness Narrative* Problem [...] of clinical summary 04/08/2019 04/18/2019 Overview: Admit [facility] 03/21/19-03/22/19 Discharge diagnoses chronic kidney disease with worsening creatinine, acute kidney injury Hypokalemia Toxic encephalopathy secondary to Flexeril overusage Type 2 diabetes Ischemic cardiomyopathy Coronary artery disease Ligamental cervical neck strain and acute Pulmonary hypertension Hypertension Pyuria Preadmit: to [facility] ED with slurred speech, lethargy. Malnutrition [...] of this encounter (statuses as of 08/27/2022) [facility] History of Past illness Narrative* Problem Noted Date Resolved Date Transition of care performed with sharing of clinical summary 04/08/2019 04/18/2019 Overview: Admit [facility] 03/21/19 03/22/19 Discharge diagnoses chronic kidney disease with worsening creatinine, acute kidney injury Hypokalemia Toxic encephalopathy secondary to Flexeril overusage Type 2 diabetes Ischemic cardiomyopathy Coronary artery disease Ligamental cervical neck strain and acute Pulmonary hypertension Hypertension Pyuria Preadmit: to [facility] ED with slurred speech, lethargy. Altered mental status 03/24/2019 07/05/2019 CKD (chronic kidney disease) stage 3, GFR 30-59 ml/min 03/24/2019 04/18/2019 documented as of this encounter (statuses as of 11/14/2021) [facility] Jensen Claire [facility] Note Date/Time December 11, 2024 6:1 5pm [facility] Medical Records Department [address] [place] [address] Consultation - Cardiology 12/11/24 1751 MR#: [id number] Acct: [id number] Name: MAURI QUINONES Rep #:[id number] : [...] nephrology is been consulted for urgent dialysis. [facility] Medical History C. difficile diarrhea Anemia History of GI bleed Pure hypercholesterolemia Ischemic cardiomyopathy Essential hypertension Renal insufficiency Ankylosing spondylitis CAD (coronary artery disease) Overweight (BMI 25.0-29.9) Leg edema Leg swelling Acute systolic heart failure Bradycardia Biliary pleural effusion HTN (hypertension) Ventricular tachyarrhythmia Atherosclerosis of holy cross co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 pectoris Pulmonary HTN Cardiomyopathy [...] Applicable: No Charges/Coding Visit Charges Inpatient E&M: 86719 Init Hosp L3 Objective Data Vital Signs: [...] (Auto) 77.3 H, Lymph % (Auto) 7.7L, [place] % (Auto) 13.0 H, Eos % (Auto) [...] 77.3 H, Lymph % (Auto) 7.7 L, [place] % (Auto) 13.0 H, Eos % (Auto) [...] 12/11/24 15:10 IMPRESSION: CHF exacerbation. Reading [facility] 12/11/241814 <Electronically signed by Jensen Claire MD> Cosigner Signature (if applicable): CC: Dr. Rigoberto Gould MD~ Signed [facility] Work Phone: Evaluation note* Diagnosis ESRD needing dialysis (HCC) End stage renal disease Bypass graft stenosis, initial encounter (HCC) documented in this encounter [facility] Work Phone: Evaluation note* Diagnosis Hypertension, essential- Primary Unspecified essential hypertension Chronic kidney disease, stage IV (severe) ([facility]) Chronic kidney disease, Stage IV (severe) Type 2 diabetes mellitus without complication, with long-term current use of insulin ([facility]) [facility]* Diagnosis Arteriosclerotic heart disease (ASHD)- Primary Coronary atherosclerosis of unspecified type of vessel, holy cross or graft Mononeuropathy due to underlying disease Hypertension, essential Unspecified essential hypertension Acute on chronic diastolic congestive heart failure (HCC) Acute on chronic diastolic heart failure Ischemic cardiomyopathy Other specified forms of chronic ischemic heart disease 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 Anemia of chronic renal failure, stage 3 (moderate), unspecified whether stage 3a or 3b CKD ([facility]) Chronic kidney disease, stage IV (severe) ([facility]) Chronic kidney disease, Stage IV (severe) 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 due to underlying condition, unspecified proliferative retinopathy type ([facility]) documented in this encounter [facility] note* Diagnosis Pre-transplant evaluation for kidney transplant- Primary [facility] Diagnosis Hypertension, essential- Primary Unspecified essential hypertension Type 2 diabetes mellitus without complication, with long-term current use of insulin ([facility]) documented in this encounter [facility] note* Diagnosis Closed fracture of left lower extremity, sequela- Primary ESRD (end stage renal disease) on dialysis ([facility]) End stage renal disease Type 2 diabetes mellitus without complication, with long-term current use of insulin ([facility]) Hypertension, essential Unspecified essential hypertension JOHNY (obstructive sleep apnea) Obstructive sleep apnea (adult) (pediatric) C. difficile colitis Intestinal infection due to clostridium difficile Gastrointestinal hemorrhage, unspecified gastrointestinal hemorrhage type documented in this encounter [facility] note* Diagnosis Diarrhea of infectious origin- Primary Diarrhea of presumed infectious origin [facility]* Diagnosis C. difficile colitis- Primary Intestinal infection due to clostridium difficile Need for vaccination Need for prophylactic vaccination and inoculation against unspecified single disease Arteriosclerotic heart disease (ASHD) Coronary atherosclerosis of unspecified type of vessel, holy cross or graft Hypertension, essential Unspecified essential hypertension Ischemic cardiomyopathy Other specified forms of chronic ischemic heart disease ESRD (end stage renal disease) on dialysis (HCC) End stage renal disease JOHNY (obstructive sleep apnea) Obstructive sleep apnea (adult) (pediatric) [facility] Diagnosis C. 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 due to underlying condition, unspecified proliferative retinopathy type ([facility]) ESRD (end stage renal disease) on dialysis ([facility]) End stage renal disease Chronic combined systolic and diastolic CHF (congestive heart failure) ([facility]) Chronic combined systolic and diastolic heart failure Ankylosing spondylitis of multiple sites in spine ([facility]) Ankylosing spondylitis Hypertension, essential Unspecified essential hypertension Ischemic cardiomyopathy Other specified forms of chronic ischemic heart disease JOHNY (obstructive sleep apnea) Obstructive sleep apnea (adult) (pediatric) Osteopenia, senile Disorder of bone and cartilage, unspecified Screening for colon cancer Special screening for malignant neoplasms, colon Type 2 diabetes mellitus without complication, with long-term current use of insulin ([facility]) [facility] Diagnosis URI, acute- Primary Acute upper respiratory infections of unspecified site [facility]* Diagnosis 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- Primary Neoplasm of uncertain behavior of skin [facility] Diagnosis 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 Neoplasm of uncertain behavior of skin [facility]* Diagnosis Skin lesion of right lower extremity- Primary Dysesthesia Disturbance of skin sensation [facility]* Diagnosis Skin lesion of right lower extremity- Primary [facility]* Diagnosis Acute right ankle pain- Primary Acute pain of right knee Other closed fracture of proximal end of right tibia, initial encounter Right knee pain, unspecified chronicity Ankylosing spondylitis of multiple sites in spine ([facility]) Ankylosing spondylitis PVD (peripheral vascular disease) ([facility]) Peripheral vascular disease, unspecified Acute pain of right knee Acute right ankle pain [facility] Diagnosis Other closed fracture of proximal end of right tibia, initial encounter- Primary [facility]* Diagnosis Umbilical hernia without obstruction or gangrene- Primary Umbilical hernia without mention of obstruction or gangrene Seasonal allergic rhinitis due to pollen Ischemic cardiomyopathy Other specified forms of chronic ischemic heart disease 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 JOHNY (obstructive sleep apnea) Obstructive sleep apnea (adult) (pediatric) PVD (peripheral vascular disease) ([facility]) Peripheral vascular disease, unspecified [facility] Diagnosis Other closed fracture of proximal end of right tibia, initial encounter- Primary [facility]* Diagnosis Right knee pain, unspecified chronicity [facility]* Diagnosis Right knee pain, unspecified chronicity [facility] Diagnosis Acute pain of right knee Acute right ankle pain [facility] Diagnosis Acute right ankle pain [facility] Diagnosis Acute right ankle pain- Primary [facility] Diagnosis Acute right ankle pain- Primary Arthritis of right midfoot Stress fracture of navicular bone of right foot Acute right ankle pain [facility]* Diagnosis Pain Generalized pain [facility]* Diagnosis Ischemic cardiomyopathy- Primary Other specified forms of chronic ischemic heart disease Screening for diabetic retinopathy Screening for other eye conditions Screening for depression Encounter for screening examination for other mental health and behavioral disorders Arteriosclerotic heart disease (ASHD) Coronary atherosclerosis of unspecified type of vessel, holy cross or graft Chronic kidney disease (CKD), stage V (HCC) Chronic kidney disease, Stage V Encounter for immunization Need for other specified prophylactic vaccination against single bacterial disease Gastrointestinal hemorrhage, unspecified gastrointestinal hemorrhage type Type 2 diabetes mellitus without complication, with long-term current use of insulin (HCC) PVD (peripheral vascular disease) (HCC) Peripheral vascular disease, unspecified Hypertension, essential Unspecified essential hypertension ESRD (end stage renal disease) on dialysis (HCC) End stage renal disease [facility]* Diagnosis ED (erectile dysfunction) of organic origin- Primary Impotence of organic origin Gastrointestinal hemorrhage, unspecified gastrointestinal hemorrhage type Type 2 diabetes mellitus without complication, with long-term current use of insulin ([facility]) [facility]* Diagnosis Stress fracture of navicular bone of right foot- Primary Other closed fracture of proximal end of right tibia, initial encounter [facility] Acute pain of right knee- Primary Right thigh pain Pain in limb Pain in right hip Pain in joint, pelvic region and thigh [facility]* Diagnosis Nausea- Primary Nausea alone Gastroenteritis Other and unspecified noninfectious gastroenteritis and colitis ESRD (end stage renal disease) on dialysis (HCC) End stage renal disease [facility]* Diagnosis Instability of prosthetic knee, initial encounter ([facility]) ([facility])- Primary Weakness of right quadriceps muscle 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 [facility] Diagnosis Pain in right hip Pain in joint, pelvic region and thigh Acute pain of right knee Right thigh pain Pain in limb [facility] Diagnosis Instability of prosthetic knee, initial encounter ([facility]) ([facility])- Primary [facility]* Diagnosis Mechanical complication of internal orthopedic device, implant or graft, initial encounter ([facility])- Primary [facility]* Diagnosis Itching- Primary Unspecified pruritic disorder Type 2 diabetes mellitus without complication, with long-term current use of insulin ([facility]) [facility]* Diagnosis Status post total replacement of right hip- Primary [facility]* Diagnosis Right leg pain- Primary Pain in limb [facility]* Diagnosis Status post total replacement of right hip [facility] Diagnosis Pain of right hip- Primary Status post right hip replacement Hip joint replacement by other means [facility]* Diagnosis Pain of right hip [facility] Pain of right hip Status post right hip replacement Hip joint replacement by other means [facility]* Diagnosis Chronic insomnia- Primary Insomnia, unspecified URI, acute Acute upper respiratory infections of unspecified site Type 2 diabetes mellitus without complication, with long-term current use of insulin ([facility]) Arteriosclerotic heart disease (ASHD) Coronary atherosclerosis of unspecified type of vessel, holy cross or graft [facility]* Diagnosis Pain of right hip- Primary Pain of right hip [facility] Diagnosis Urinary tract infection without hematuria, site unspecified- Primary Urinary retention Retention of urine, unspecified [facility]* Diagnosis Chronic insomnia Insomnia, unspecified [facility]* Diagnosis Urinary retention- Primary Retention of urine, unspecified [facility] Diagnosis Urine retention- Primary Retention of urine, unspecified [facility] Author Mary Jo Granados [facility] Note Date/Time December 11, 2024 5:1 8pm [facility] Medical Records Department [address] [place] [address] H&P Exam - Hospitalist 12/11/24 1652 MR#: [id number] Acct: [id number] Name: MAURI QUINONES Rep #:[id number] : [...] Former tobacco use who presents to the [facility] ED on 12/11/24 with history of [...] and no concern for peaked T waves. [facility] Medical History C. difficile diarrhea Anemia History of GI bleed Pure hypercholesterolemia Ischemic cardiomyopathy Essential hypertension Renal insufficiency Ankylosing spondylitis CAD (coronary artery disease) Overweight (BMI 25.0-29.9) Leg edema Leg swelling Acute systolic heart failure Bradycardia Biliary pleural effusion HTN (hypertension) Ventricular tachyarrhythmia Atherosclerosis of holy cross co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 pectoris Pulmonary HTN Cardiomyopathy [...] (Auto) 77.3 H, Lymph % (Auto) 7.7L, [place] % (Auto) 13.0 H, Eos % (Auto) [...] 12/11/24 15:10 IMPRESSION: CHF exacerbation. Reading Location: [facility] Assessment & Plan Assessment/Plan (1) Acute hyperkalemia: [...] Former tobacco use who presents to the [facility] ED on 12/11/24 with history of [...] SVG to PDA in March 2017 at [facility]), if able to tolerate will continue [...] 16 minutes. Charges/Coding Visit Charges Inpatient E&M: 55375 Init Hosp L3 Procedures Hospitalists Procedures: 17337 Advncd Care Plan 30 Min 12/11/24 1718 <Electronically signed by Mary Jo Granados MD> Cosigner Signature (if applicable): CC: Dr. Mary Jo Granados MD; Dr. Rigoberto Gould MD~ Signed [facility] Work Phone: Reason for referral (narrative)* Diagnostic Procedure Only (Routine) - Closed Specialty Diagnoses / Procedures Referred By Contac t Referred To Contact XR IMAGING Diagnoses Acute right ankle pain Procedures XR ANKLE GENERAL 3V AP/LAT/OBL RIGHT RADEX ANKLE COMPLETE MINIMUM 3 VIEWS Nupur De La Rosa MD [address] [id number] [place] [address] Referral ID Status Reason Start Date Expiration Date V isits Requested Visits Authorized [id number] Closed Auto-Generate d Referral 02/13/2024 03/14/2025 1 1 * Diagnostic Procedure Only (Routine) - Closed Specialty Diagnoses / Procedures Referred By Contac t Referred To Contact XR IMAGING Diagnoses Acute pain of right knee Procedures XR KNEE INJURY 4V AP/LAT/OBLS RIGHT RADIOLOGIC EXAM KNEE COMPLETE 4/MORE VIEWS Nupur De La Rosa MD [address] [place] [id number] [place] [address] Referral ID Status Reason Start Date Expiration Date V isits Requested Visits Authorized [id number] Closed Auto-Generate d Referral 02/13/2024 03/14/2025 1 1 [facility] for referral (narrative)* Diagnostic Procedure Only (Routine) - Closed Specialty Diagnoses / Procedures Referred By Contac t Referred To Contact XR IMAGING Diagnoses Right knee pain, unspecified chronicity Procedures XR KNEE INJURY 4V AP/LAT/OBLS RIGHT RADIOLOGIC EXAM KNEE COMPLETE 4/MORE VIEWS Ra Whatley PA-C [address] [place] [id number] Xr [place] [address] Referral ID Status Reason Start Date Expiration Date V isits Requested Visits Authorized [id number] Closed Auto-Generate d Referral 03/12/2024 04/11/2025 1 1 [facility] for referral (narrative)* Diagnostic Procedure Only (Routine) - Closed Specialty Diagnoses / Procedures Referred By Contac t Referred To Contact XR IMAGING Diagnoses Right knee pain, unspecified chronicity Procedures XR KNEE INJURY 4V AP/LAT/OBLS RIGHT RADIOLOGIC EXAM KNEE COMPLETE 4/MORE VIEWS Ra Whatley PA-C [address] [place] [address] [place] [address] Referral ID Status Reason Start Date Expiration Date V isits Requested Visits Authorized [id number] Closed Auto-Generate d Referral 02/18/2024 03/19/2025 1 1 [facility] for referral (narrative)* Diagnostic Procedure Only (Routine) - Closed Specialty Diagnoses / Procedures Referred By Contac t Referred To Contact XR IMAGING Diagnoses Acute right ankle pain Procedures XR ANKLE GENERAL 3V AP/LAT/OBL RIGHT RADEX ANKLE COMPLETE MINIMUM 3 VIEWS Nupur De La Rosa MD [address] [place] [address] [place] [address] Referral ID Status Reason Start Date Expiration Date V isits Requested Visits Authorized [id number] Closed Auto-Generate d Referral 02/13/2024 03/14/2025 1 1 * Diagnostic Procedure Only (Routine) - Closed Specialty Diagnoses / Procedures Referred By Contac t Referred To Contact XR IMAGING Diagnoses Acute pain of right knee Procedures XR KNEE INJURY 4V AP/LAT/OBLS RIGHT RADIOLOGIC EXAM KNEE COMPLETE 4/MORE VIEWS Nupur De La Rosa MD [address] [place] [address] [place] [address] Referral ID Status Reason Start Date Expiration Date V isits Requested Visits Authorized [id number] Closed Auto-Generate d Referral 02/13/2024 03/14/2025 1 1 [facility] for referral (narrative)* Diagnostic Procedure Only (Routine) - Closed Specialty Diagnoses / Procedures Referred By Contac t Referred To Contact XR IMAGING Diagnoses Acute right ankle pain Procedures XR ANKLE GENERAL 3V AP/LAT/OBL RIGHT RADEX ANKLE COMPLETE MINIMUM 3 VIEWS Nupur De La Rosa MD [address] [place] [address] [place] [address] Referral ID Status Reason Start Date Expiration Date V isits Requested Visits Authorized [id number] Closed Auto-Generate d Referral 05/07/2024 06/06/2025 1 1 [facility] for referral (narrative)* Diagnostic Procedure Only (Routine) - New Request Specialty Diagnoses / Procedures Referred By Contac t Referred To Contact XR IMAGING Diagnoses Acute pain of right knee Right thigh pain Procedures XR FEMUR GENERAL 2V AP/LAT RIGHT RADIOLOGIC EXAMINATION FEMUR MINIMUM 2 VIEWS Maco Rivera PA-C [address] [place] [address] [place] [address] Referral ID Status Reason Start Date Expiration Date Visits Requested Visits Authorized [id number] New Request Auto-Generat ed Referral 08/28/2024 09/27/2025 1 1 * Diagnostic Procedure Only (Routine) - New Request Specialty Diagnoses / Procedures Referred By Contac t Referred To Contact XR IMAGING Diagnoses Pain in right hip Procedures XR PELVIS 1V AP RADIOLOGIC EXAMINATION PELVIS 1/2 VIEWS Maco Rivera PA-C [address] [place] [id number] [place] [address] Referral ID Status Reason Start Date Expiration Date Visits Requested Visits Authorized [id number] New Request Auto-Generat ed Referral 08/28/2024 09/27/2025 1 1 [facility] for referral (narrative)No reason for referral information availableWOhio [facility] Work Phone: Reason for visit Narrative* Diagnostic Procedure Only (Routine) - Closed Specialty Diagnoses / Procedures Referred By Contac t Referred To Contact XR IMAGING Diagnoses Right knee pain, unspecified chronicity Procedures XR KNEE INJURY 4V AP/LAT/OBLS RIGHT RADIOLOGIC EXAM KNEE COMPLETE 4/MORE VIEWS Ra Whatley PA-C [address] [place] [address] [place] [address] Referral ID Status Reason Start Date Expiration Date V isits Requested Visits Authorized [id number] Closed Auto-Generate d Referral 03/12/2024 04/11/2025 1 1 [facility] for visit Narrative* Diagnostic Procedure Only (Routine) - Closed Specialty Diagnoses / Procedures Referred By Contac t Referred To Contact XR IMAGING Diagnoses Right knee pain, unspecified chronicity Procedures XR KNEE INJURY 4V AP/LAT/OBLS RIGHT RADIOLOGIC EXAM KNEE COMPLETE 4/MORE VIEWS Ra Whatley PA-C [address] [place] [address] [place] [address] Referral ID Status Reason Start Date Expiration Date V isits Requested Visits Authorized [id number] Closed Auto-Generate d Referral 02/18/2024 03/19/2025 1 1 [facility] for visit Narrative* Diagnostic Procedure Only (Routine) - Closed Specialty Diagnoses / Procedures Referred By Contac t Referred To Contact XR IMAGING Diagnoses Acute right ankle pain Procedures XR ANKLE GENERAL 3V AP/LAT/OBL RIGHT RADEX ANKLE COMPLETE MINIMUM 3 VIEWS Nupur De La Rosa MD [address] [place] [address] [place] [address] Referral ID Status Reason Start Date Expiration Date V isits Requested Visits Authorized [id number] Closed Auto-Generate d Referral 02/13/2024 03/14/2025 1 1 [facility] for visit Narrative* Diagnostic Procedure Only (Routine) - Closed Specialty Diagnoses / Procedures Referred By Contac t Referred To Contact XR IMAGING Diagnoses 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 Procedures XR TIBIA FIBULA 2V AP/LAT RIGHT RADIOLOGIC EXAMINATION TIBIA & FIBULA 2 VIEWS Alexus Mendez, ENTRY LEVEL STAFF ACCOUNTANT.THEATRICAL PERFORMER [address] [place] [address] [place] [address] Referral ID Status Reason Start Date Expiration Date V isits Requested Visits Authorized [id number] Closed Auto-Generate d Referral 11/08/2023 12/07/2024 1 1 [facility] for visit Narrative* Diagnostic Procedure Only (Routine) - Closed Specialty Diagnoses / Procedures Referred By Contac t Referred To Contact XR IMAGING Diagnoses Acute right ankle pain Procedures XR ANKLE GENERAL 3V AP/LAT/OBL RIGHT RADEX ANKLE COMPLETE MINIMUM 3 VIEWS Nupur De La Rosa MD [address] [address] [place] [address] Referral ID Status Reason Start Date Expiration Date V isits Requested Visits Authorized [id number] Closed Auto-Generate d Referral 05/07/2024 06/06/2025 1 1 [facility] for visit Narrative* Diagnostic Procedure Only (Routine) - Closed Specialty Diagnoses / Procedures Referred By Contac t Referred To Contact XR IMAGING Diagnoses Pain Procedures XR ANKLE GENERAL 3V AP/LAT/OBL RIGHT RADEX ANKLE COMPLETE MINIMUM 3 VIEWS Ra Whatley PA-C [address] [place] [address] [place] [address] Referral ID Status Reason Start Date Expiration Date V isits Requested Visits Authorized [id number] Closed Auto-Generate d Referral 06/05/2024 07/05/2025 1 1 [facility] for visit Narrative* Diagnostic Procedure Only (Routine) - Closed Specialty Diagnoses / Procedures Referred By Contac t Referred To Contact XR IMAGING Diagnoses Pain in right hip Procedures XR PELVIS 1V AP RADIOLOGIC EXAMINATION PELVIS 1/2 VIEWS Maco Rivera PA-C [address] [place] [address] [place] [address] Referral ID Status Reason Start Date Expiration Date V isits Requested Visits Authorized [id number] Closed Auto-Generate d Referral 08/28/2024 09/27/2025 1 1 [facility] for visit Narrative* Diagnostic Procedure Only (Routine) - Closed Specialty Diagnoses / Procedures Referred By Contac t Referred To Contact XR IMAGING Diagnoses Status post total replacement of right hip Procedures XR FEMUR GENERAL 2V AP/LAT RIGHT RADIOLOGIC EXAMINATION FEMUR MINIMUM 2 VIEWS Maco Rivera PA-C [address] [place] [address] Phone: tel: fax: [place] [address] Referral ID Status Reason Start Date Expiration Date V isits Requested Visits Authorized [id number] Closed Auto-Generate d Referral 11/12/2024 12/12/2025 1 1 [facility] for visit Narrative* Diagnostic Procedure Only (Routine) - Closed Specialty Diagnoses / Procedures Referred By Contac t Referred To Contact MOLECULAR & FUNCTIONAL IMAGING Diagnoses Pain of right hip Procedures NM BONE 3 PHASE BONE &/JOINT IMAGING 3 PHASE STUDY Nupur De La Rosa MD [address] [address] Phone: tel: fax: Molecular Imaging [address] [place] [address] Phone: tel: Referral ID Status Reason Start Date Expiration Date V isits Requested Visits Authorized [id number] Closed Auto-Generate d Referral 11/14/2024 12/14/2025 1 1 [facility] Summary Purpose Family History No Family [...] Documents on File Type Date Recorded 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 No December 11, 2024 2:16pm Advance Directives No June 16, 2015 4:05pm Advance Directive Response Recorded Date/ Time Living Will No December 11, 2024 7:31pm Do you have a Healthcare Power of Cad Detailer? No December 11, 2024 7:31pm Advance Directives No June 16, 2015 4:05pm Advance Directive Response Recorded Date/ Time Living Will No December 11, 2024 7:31pm Do you have a Healthcare Power of Cad Detailer? No December 11, 2024 7:31pm Do you have a Healthcare Power of Cad Detailer? No December 22, 2024 6:54pm Do you have a Healthcare Power of Cad Detailer? No January 06, 2025 6:20pm Do you have a Healthcare Power of Cad Detailer? Yes December 29, 2024 4:02pm Advance Directives No June 16, 2015 4:05pm Hospital Course Note [facility] Patient Name: VALENTE QUINONES Date of : [address] [place] [id number] Unit Number: [id number] Number: [id number] Summary Patient Status: DIS INAttending Doctor: Jensen [...] is a 62-year-old male who presented to [facility] on 07/17/2018 for ascheduled cephallomedullary nail removal and right total hip arthroplasty by (more content not included)... Note HNO ID: [id number] Author: Wallace Marcial Service: Hospital Medicine Author [...] not included)... Discharge Instructions * Instructions* Kaya Coleman RN - 11/03/2020 CONTINUE ASPIRIN DO NOT TAKE THE MORNING OF SURGERY METOLAZONE BUMETANIDE * Attachments The following attachments cannot be sent through Care Everywhere. * Hemodialysis Vascular Access (Icelandic) * Hemodialysis: Vascular Access Surgery: General Info (Icelandic) documented in this encounter* Instructions* Candice Tellez [...] diabetes mellitus with ESRD (end-stage renal disease) ([facility]) Type II or unspecified type diabetes mellitus with renal manifestations, not stated as uncontrolled Reason for Referral Status Reason Specialty Diagnoses / Procedures Referre d By Contact Referred To Contact Closed Radiology Diagnoses ESRD needing dialysis ([facility]) Bypass graft stenosis, initial encounter ([facility]) Procedures VL Hemodialysis Access Nick Mancilla MD [address] [place] [address] Specialty Diagnoses / Procedures Referred By Contac t Referred To Contact Gastroenterology Diagnoses C. difficile colitis Gastrointestinal hemorrhage, unspecified gastrointestinal hemorrhage type Procedures CONSULT TO GASTROENTEROLOGY OFFICE/OUTPATIENT [facility] 60-74 MINUTES Rigoberto Gould MD [address] [place] [address] Referral ID Status Reason Start Date Expiration Date Visits Requested Visits Authorized [id number] Authorized PCP Requested Referral 2 06/05/2023 1 1 Specialty Diagnoses / Procedures Referred By Contac t Referred To Contact Aditya Davis PA-C [address] [place] [address] Referral ID Status Reason Start Date Expiration Date Visits Re quested Visits Authorized [id number] Closed 1 1 Specialty Diagnoses / Procedures Referred By Contac t Referred To Contact Gastroenterology Diagnoses C. 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 Procedures CONSULT TO GENERAL SURGERY OFFICE/OUTPATIENT NEW HIGH MDM 60 MINUTES Alexus Mendez APRN.SANFORIZING MACHINE OPERATOR [address] [place] [address] Referral ID Status Reason Start Date Expiration Date Visits Requested Visits Authorized [id number] Authorized PCP Requested Referral 11/08/2023 11/07/2024 1 1 Specialty Diagnoses / Procedures Referred By Contac t Referred To Contact XR IMAGING Diagnoses 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 Procedures XR TIBIA FIBULA 2V AP/LAT RIGHT RADIOLOGIC EXAMINATION TIBIA & FIBULA 2 VIEWS Alexus Mendez, ENTRY LEVEL STAFF ACCOUNTANT.SANFORIZING MACHINE OPERATOR [address] [place] [address] [place] [address] Referral ID Status Reason Start Date Expiration Date V isits Requested Visits Authorized [id number] Closed Auto-Generate d Referral 11/08/2023 12/07/2024 1 [...] Reason for Visit Admit Date Atherosclerosis [facility] 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 October 28, 2024 12:52pm [...] 4:45pm Chief Complaint Admit Date 9 M FU [...] Reason for Visit Admit Date Atherosclerosis [facility] 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 October 28, 2024 12:52pm [...] 4:45pm Chief Complaint Admit Date 9 M FU [...] Reason for Visit Admit Date Atherosclerosis of [facility] 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 October 28, 2024 12:52pm [...] fibrillation December 26, 2024 12:56pm Atherosclerosis of [facility] 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 December 26, 2024 12:56pm [...] section and content) DATE CREATED AUTHOR 06/27/2018 [facility] ([place]) DATE CREATED AUTHOR AUTHOR'S ORGANIZ ATION 08/04/2018 [facility] [place] DATE CREATED AUTHOR AUTHOR'S ORGANIZ ATION 04/07/2019 [facility] Center DATE CREATED AUTHOR AUTHOR'S ORGANIZ ATION 07/18/2019 [facility] DATE CREATED AUTHOR AUTHOR'S ORGANIZ ATION 03/11/2021 [facility] DATE CREATED AUTHOR AUTHOR'S ORGANIZ ATION 03/15/2022 [facility] DATE CREATED AUTHOR AUTHOR'S ORGANIZ ATION 04/07/2023 [facility] DATE CREATED AUTHOR AUTHOR'S ORGANIZ ATION 04/25/2023 [facility] nter DATE CREATED AUTHOR AUTHOR'S ORGANIZ ATION 01/21/2025 [facility] DATE CREATED AUTHOR AUTHOR'S ORGANIZ ATION 01/24/2025 [facility] DATE CREATED AUTHOR AUTHOR'S ORGANIZ ATION 01/29/2025 [facility] Ordered Prescriptions (unrec ognized section and content) [...] or prosecute any alcohol or drug abuse patient.[facility] the event this information is protected by the Federal Confidentiality of Alcohol and Drug Abuse Patient Records regulations: The Federal rules restrict any use of the information to criminally investigate or prosecute any alcohol or drug abuse patient.[facility] the event this information is protected by the Federal Confidentiality of Alcohol and Drug Abuse Patient Records regulations: The Federal rules restrict any use of the information to criminally investigate or prosecute any alcohol or drug abuse patient.[facility] the event this information is protected by the Federal Confidentiality of Alcohol and Drug Abuse Patient Records regulations: The Federal rules restrict any use of the information to criminally investigate or prosecute any alcohol or drug abuse patient.[facility] the event this information is protected by the Federal Confidentiality of Alcohol and Drug Abuse Patient Records regulations: The Federal rules restrict any use of the information to criminally investigate or prosecute any alcohol or drug abuse patient.[facility] the event this information is protected by the Federal Confidentiality of Alcohol and Drug Abuse Patient Records regulations: The Federal rules restrict any use of the information to criminally investigate or prosecute any alcohol or drug abuse patient.[facility] the event this information is protected by the Federal Confidentiality of Alcohol and Drug Abuse Patient Records regulations: The Federal rules restrict any use of the information to criminally investigate or prosecute any alcohol or drug abuse patient.[facility] the event this information is protected by the Federal Confidentiality of Alcohol and Drug Abuse Patient Records regulations: The Federal rules restrict any use of the information to criminally investigate or prosecute any alcohol or drug abuse patient.[facility] the event this information is protected by the Federal Confidentiality of Alcohol and Drug Abuse Patient Records regulations: The Federal rules restrict any use of the information to criminally investigate or prosecute any alcohol or drug abuse patient.[facility] the event this information is protected by the Federal Confidentiality of Alcohol and Drug Abuse Patient Records regulations: The Federal rules restrict any use of the information to criminally investigate or prosecute any alcohol or drug abuse patient.[facility]In the event this information is protected by the Federal Confidentiality of Alcohol and Drug Abuse Patient Records regulations: The Federal rules restrict any use of the information to criminally investigate or prosecute any alcohol or drug abuse patient.[facility]In the event this information is protected by the Federal Confidentiality of Alcohol and Drug Abuse Patient Records regulations: The Federal rules restrict any use of the information to criminally investigate or prosecute any alcohol or drug abuse patient.[facility]In the event this information is protected by the Federal Confidentiality of Alcohol and Drug Abuse Patient Records regulations: The Federal rules restrict any use of the information to criminally investigate or prosecute any alcohol or drug abuse patient.[facility]In the event this information is protected by the Federal Confidentiality of Alcohol and Drug Abuse Patient Records regulations: The Federal rules restrict any use of the information to criminally investigate or prosecute any alcohol or drug abuse patient.[facility]In the event this information is protected by the Federal Confidentiality of Alcohol and Drug Abuse Patient Records regulations: The Federal rules restrict any use of the information to criminally investigate or prosecute any alcohol or drug abuse patient.[facility]In the event this information is protected by the Federal Confidentiality of Alcohol and Drug Abuse Patient Records regulations: The Federal rules restrict any use of the information to criminally investigate or prosecute any alcohol or drug abuse patient.[facility]In the event this information is protected by the Federal Confidentiality of Alcohol and Drug Abuse Patient Records regulations: The Federal rules restrict any use of the information to criminally investigate or prosecute any alcohol or drug abuse patient.[facility]In the event this information is protected by the Federal Confidentiality of Alcohol and Drug Abuse Patient Records regulations: The Federal rules restrict any use of the information to criminally investigate or prosecute any alcohol or drug abuse patient.[facility]In the event this information is protected by the Federal Confidentiality of Alcohol and Drug Abuse Patient Records regulations: The Federal rules restrict any use of the information to criminally investigate or prosecute any alcohol or drug abuse patient.[facility]In the event this information is protected by the Federal Confidentiality of Alcohol and Drug Abuse Patient Records regulations: The Federal rules restrict any use of the information to criminally investigate or prosecute any alcohol or drug abuse patient.[facility]In the event this information is protected by the Federal Confidentiality of Alcohol and Drug Abuse Patient Records regulations: The Federal rules restrict any use of the information to criminally investigate or prosecute any alcohol or drug abuse patient.[facility] HospitalIn the event this information is protected by the Federal Confidentiality of Alcohol and Drug Abuse Patient Records regulations: The Federal rules restrict any use of the information to criminally investigate or prosecute any alcohol or drug abuse patient.[facility]In the event this information is protected by the Federal Confidentiality of Alcohol and Drug Abuse Patient Records regulations: The Federal rules restrict any use of the information to criminally investigate or prosecute any alcohol or drug abuse patient.[facility]In the event this information is protected by the Federal Confidentiality of Alcohol and Drug Abuse Patient Records regulations: The Federal rules restrict any use of the information to criminally investigate or prosecute any alcohol or drug abuse patient.[facility]In the event this information is protected by the Federal Confidentiality of Alcohol and Drug Abuse Patient Records regulations: The Federal rules restrict any use of the information to criminally investigate or prosecute any alcohol or drug abuse patient.[facility]In the event this information is protected by the Federal Confidentiality of Alcohol and Drug Abuse Patient Records regulations: The Federal rules restrict any use of the information to criminally investigate or prosecute any alcohol or drug abuse patient.[facility]In the event this information is protected by the Federal Confidentiality of Alcohol and Drug Abuse Patient Records regulations: The Federal rules restrict any use of the information to criminally investigate or prosecute any alcohol or drug abuse patient.[facility]In the event this information is protected by the Federal Confidentiality of Alcohol and Drug Abuse Patient Records regulations: The Federal rules restrict any use of the information to criminally investigate or prosecute any alcohol or drug abuse patient.[facility]In the event this information is protected by the Federal Confidentiality of Alcohol and Drug Abuse Patient Records regulations: The Federal rules restrict any use of the information to criminally investigate or prosecute any alcohol or drug abuse patient.[facility]In the event this information is protected by the Federal Confidentiality of Alcohol and Drug Abuse Patient Records regulations: The Federal rules restrict any use of the information to criminally investigate or prosecute any alcohol or drug abuse patient.[facility]In the event this information is protected by the Federal Confidentiality of Alcohol and Drug Abuse Patient Records regulations: The Federal rules restrict any use of the information to criminally investigate or prosecute any alcohol or drug abuse patient.[facility]In the event this information is protected by the Federal Confidentiality of Alcohol and Drug Abuse Patient Records regulations: The Federal rules restrict any use of the information to criminally investigate or prosecute any alcohol or drug abuse patient.[facility]In the event this information is protected by the Federal Confidentiality of Alcohol and Drug Abuse Patient Records regulations: The Federal rules restrict any use of the information to criminally investigate or prosecute any alcohol or drug abuse patient.[facility]In the event this information is protected by the Federal Confidentiality of Alcohol and Drug Abuse Patient Records regulations: The Federal rules restrict any use of the information to criminally investigate or prosecute any alcohol or drug abuse patient.[facility] HospitalIn the event this information is protected by the Federal Confidentiality of Alcohol and Drug Abuse Patient Records regulations: The Federal rules restrict any use of the information to criminally investigate or prosecute any alcohol or drug abuse patient.[facility] HospitalIn the event this information is protected by the Federal Confidentiality of Alcohol and Drug Abuse Patient Records regulations: The Federal rules restrict any use of the information to criminally investigate or prosecute any alcohol or drug abuse patient.[facility] HospitalIn the event this information is protected by the Federal Confidentiality of Alcohol and Drug Abuse Patient Records regulations: The Federal rules restrict any use of the information to criminally investigate or prosecute any alcohol or drug abuse patient.[facility] HospitalIn the event this information is protected by the Federal Confidentiality of Alcohol and Drug Abuse Patient Records regulations: The Federal rules restrict any use of the information to criminally investigate or prosecute any alcohol or drug abuse patient.[facility] HospitalIn the event this information is protected by the Federal Confidentiality of Alcohol and Drug Abuse Patient Records regulations: The Federal rules restrict any use of the information to criminally investigate or prosecute any alcohol or drug abuse patient.[facility] HospitalIn the event this information is protected by the Federal Confidentiality of Alcohol and Drug Abuse Patient Records regulations: The Federal rules restrict any use of the information to criminally investigate or prosecute any alcohol or drug abuse patient.[facility] HospitalIn the event this information is protected by the Federal Confidentiality of Alcohol and Drug Abuse Patient Records regulations: The Federal rules restrict any use of the information to criminally investigate or prosecute any alcohol or drug abuse patient.[facility] HospitalIn the event this information is protected by the Federal Confidentiality of Alcohol and Drug Abuse Patient Records regulations: The Federal rules restrict any use of the information to criminally investigate or prosecute any alcohol or drug abuse patient.[facility] HospitalIn the event this information is protected by the Federal Confidentiality of Alcohol and Drug Abuse Patient Records regulations: The Federal rules restrict any use of the information to criminally investigate or prosecute any alcohol or drug abuse patient.[facility] HospitalIn the event this information is protected by the Federal Confidentiality of Alcohol and Drug Abuse Patient Records regulations: The Federal rules restrict any use of the information to criminally investigate or prosecute any alcohol or drug abuse patient.[facility] HospitalIn the event this information is protected by the Federal Confidentiality of Alcohol and Drug Abuse Patient Records regulations: The Federal rules restrict any use of the information to criminally investigate or prosecute any alcohol or drug abuse patient.[facility] HospitalIn the event this information is protected by the Federal Confidentiality of Alcohol and Drug Abuse Patient Records regulations: The Federal rules restrict any use of the information to criminally investigate or prosecute any alcohol or drug abuse patient.[facility] HospitalIn the event this information is protected by the Federal Confidentiality of Alcohol and Drug Abuse Patient Records regulations: The Federal rules restrict any use of the information to criminally investigate or prosecute any alcohol or drug abuse patient.[facility] HospitalIn the event this information is protected by the Federal Confidentiality of Alcohol and Drug Abuse Patient Records regulations: The Federal rules restrict any use of the information to criminally investigate or prosecute any alcohol or drug abuse patient.[facility] HospitalIn the event this information is protected by the Federal Confidentiality of Alcohol and Drug Abuse Patient Records regulations: The Federal rules restrict any use of the information to criminally investigate or prosecute any alcohol or drug abuse patient.[facility] HospitalIn the event this information is protected by the Federal Confidentiality of Alcohol and Drug Abuse Patient Records regulations: The Federal rules restrict any use of the information to criminally investigate or prosecute any alcohol or drug abuse patient.[facility] HospitalIn the event this information is protected by the Federal Confidentiality of Alcohol and Drug Abuse Patient Records regulations: The Federal rules restrict any use of the information to criminally investigate or prosecute any alcohol or drug abuse patient.[facility] HospitalIn the event this information is protected by the Federal Confidentiality of Alcohol and Drug Abuse Patient Records regulations: The Federal rules restrict any use of the information to criminally investigate or prosecute any alcohol or drug abuse patient.[facility] HospitalIn the event this information is protected by the Federal Confidentiality of Alcohol and Drug Abuse Patient Records regulations: The Federal rules restrict any use of the information to criminally investigate or prosecute any alcohol or drug abuse patient.[facility] HospitalIn the event this information is protected by the Federal Confidentiality of Alcohol and Drug Abuse Patient Records regulations: The Federal rules restrict any use of the information to criminally investigate or prosecute any alcohol or drug abuse patient.[facility] HospitalIn the event this information is protected by the Federal Confidentiality of Alcohol and Drug Abuse Patient Records regulations: The Federal rules restrict any use of the information to criminally investigate or prosecute any alcohol or drug abuse patient.[facility] HospitalIn the event this information is protected by the Federal Confidentiality of Alcohol and Drug Abuse Patient Records regulations: The Federal rules restrict any use of the information to criminally investigate or prosecute any alcohol or drug abuse patient.[facility] HospitalIn the event this information is protected by the Federal Confidentiality of Alcohol and Drug Abuse Patient Records regulations: The Federal rules restrict any use of the information to criminally investigate or prosecute any alcohol or drug abuse patient.[facility] HospitalIn the event this information is protected by the Federal Confidentiality of Alcohol and Drug Abuse Patient Records regulations: The Federal rules restrict any use of the information to criminally investigate or prosecute any alcohol or drug abuse patient.[facility] HospitalIn the event this information is protected by the Federal Confidentiality of Alcohol and Drug Abuse Patient Records regulations: The Federal rules restrict any use of the information to criminally investigate or prosecute any alcohol or drug abuse patient.[facility] HospitalIn the event this information is protected by the Federal Confidentiality of Alcohol and Drug Abuse Patient Records regulations: The Federal rules restrict any use of the information to criminally investigate or prosecute any alcohol or drug abuse patient.[facility] HospitalIn the event this information is protected by the Federal Confidentiality of Alcohol and Drug Abuse Patient Records regulations: The Federal rules restrict any use of the information to criminally investigate or prosecute any alcohol or drug abuse patient.[facility] HospitalIn the event this information is protected by the Federal Confidentiality of Alcohol and Drug Abuse Patient Records regulations: The Federal rules restrict any use of the information to criminally investigate or prosecute any alcohol or drug abuse patient.[facility] HospitalIn the event this information is protected by the Federal Confidentiality of Alcohol and Drug Abuse Patient Records regulations: The Federal rules restrict any use of the information to criminally investigate or prosecute any alcohol or drug abuse patient.[facility] HospitalIn the event this information is protected by the Federal Confidentiality of Alcohol and Drug Abuse Patient Records regulations: The Federal rules restrict any use of the information to criminally investigate or prosecute any alcohol or drug abuse patient.[facility] HospitalIn the event this information is protected by the Federal Confidentiality of Alcohol and Drug Abuse Patient Records regulations: The Federal rules restrict any use of the information to criminally investigate or prosecute any alcohol or drug abuse patient.[facility] HospitalIn the event this information is protected by the Federal Confidentiality of Alcohol and Drug Abuse Patient Records regulations: The Federal rules restrict any use of the information to criminally investigate or prosecute any alcohol or drug abuse patient.[facility] HospitalIn the event this information is protected by the Federal Confidentiality of Alcohol and Drug Abuse Patient Records regulations: The Federal rules restrict any use of the information to criminally investigate or prosecute any alcohol or drug abuse patient.[facility] HospitalIn the event this information is protected by the Federal Confidentiality of Alcohol and Drug Abuse Patient Records regulations: The Federal rules restrict any use of the information to criminally investigate or prosecute any alcohol or drug abuse patient.[facility] HospitalIn the event this information is protected by the Federal Confidentiality of Alcohol and Drug Abuse Patient Records regulations: The Federal rules restrict any use of the information to criminally investigate or prosecute any alcohol or drug abuse patient.[facility] HospitalIn the event this information is protected by the Federal Confidentiality of Alcohol and Drug Abuse Patient Records regulations: The Federal rules restrict any use of the information to criminally investigate or prosecute any alcohol or drug abuse patient.[facility] HospitalIn the event this information is protected by the Federal Confidentiality of Alcohol and Drug Abuse Patient Records regulations: The Federal rules restrict any use of the information to criminally investigate or prosecute any alcohol or drug abuse patient.[facility] HospitalIn the event this information is protected by the Federal Confidentiality of Alcohol and Drug Abuse Patient Records regulations: The Federal rules restrict any use of the information to criminally investigate or prosecute any alcohol or drug abuse patient.[facility] HospitalIn the event this information is protected by the Federal Confidentiality of Alcohol and Drug Abuse Patient Records regulations: The Federal rules restrict any use of the information to criminally investigate or prosecute any alcohol or drug abuse patient.[facility] HospitalIn the event this information is protected by the Federal Confidentiality of Alcohol and Drug Abuse Patient Records regulations: The Federal rules restrict any use of the information to criminally investigate or prosecute any alcohol or drug abuse patient.[facility] HospitalIn the event this information is protected by the Federal Confidentiality of Alcohol and Drug Abuse Patient Records regulations: The Federal rules restrict any use of the information to criminally investigate or prosecute any alcohol or drug abuse patient.[facility] HospitalIn the event this information is protected by the Federal Confidentiality of Alcohol and Drug Abuse Patient Records regulations: The Federal rules restrict any use of the information to criminally investigate or prosecute any alcohol or drug abuse patient.[facility] HospitalIn the event this information is protected by the Federal Confidentiality of Alcohol and Drug Abuse Patient Records regulations: The Federal rules restrict any use of the information to criminally investigate or prosecute any alcohol or drug abuse patient.[facility] HospitalIn the event this information is protected by the Federal Confidentiality of Alcohol and Drug Abuse Patient Records regulations: The Federal rules restrict any use of the information to criminally investigate or prosecute any alcohol or drug abuse patient.[facility] HospitalIn the event this information is protected by the Federal Confidentiality of Alcohol and Drug Abuse Patient Records regulations: The Federal rules restrict any use of the information to criminally investigate or prosecute any alcohol or drug abuse patient.[facility] HospitalIn the event this information is protected by the Federal Confidentiality of Alcohol and Drug Abuse Patient Records regulations: The Federal rules restrict any use of the information to criminally investigate or prosecute any alcohol or drug abuse patient.[facility] HospitalIn the event this information is protected by the Federal Confidentiality of Alcohol and Drug Abuse Patient Records regulations: The Federal rules restrict any use of the information to criminally investigate or prosecute any alcohol or drug abuse patient.[facility] HospitalIn the event this information is protected by the Federal Confidentiality of Alcohol and Drug Abuse Patient Records regulations: The Federal rules restrict any use of the information to criminally investigate or prosecute any alcohol or drug abuse patient.[facility] HospitalIn the event this information is protected by the Federal Confidentiality of Alcohol and Drug Abuse Patient Records regulations: The Federal rules restrict any use of the information to criminally investigate or prosecute any alcohol or drug abuse patient.[facility] HospitalIn the event this information is protected by the Federal Confidentiality of Alcohol and Drug Abuse Patient Records regulations: The Federal rules restrict any use of the information to criminally investigate or prosecute any alcohol or drug abuse patient.[facility] HospitalIn the event this information is protected by the Federal Confidentiality of Alcohol and Drug Abuse Patient Records regulations: The Federal rules restrict any use of the information to criminally investigate or prosecute any alcohol or drug abuse patient.[facility] HospitalIn the event this information is protected by the Federal Confidentiality of Alcohol and Drug Abuse Patient Records regulations: The Federal rules restrict any use of the information to criminally investigate or prosecute any alcohol or drug abuse patient.[facility] Reason for Visit (unrecogniz ed section and content) Reason Comments Lab Orders Reason Comments Discussion discontinuing oxygen Reason Comments Kidney Recipient Evaluation Specialty Diagnoses / Procedures Referred By Mariel metz Referred To Contact Transplant / Transplant Surgery Diagnoses virtual video Procedures PRE NEW PATIENT Oumou Hayes, ENTRY LEVEL STAFF ACCOUNTANT-THEATRICAL PERFORMER [address] [place] [address] Samra Smith MD [address] [place] [address] Referral ID Status Reason Start Date Expiration Date V isits Requested Visits Authorized [id number] Pending Review 03/06/2022 03/31/2023 1 1 Reason Comments Patient Question Reason Comments Hospital F/U Reason Comments Patient Update Reason Comments Results Reason Comments FYI-PT plan of care Reason Comments Medication Problem Reason Comments Follow Up Reason Comments Referral Request Reason Comments Admit to [facility] Reason Comments Cough Chest congestion, ST x3 days Reason Comments Lump Small, soft bump bel ow right knee. 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 Procedures CONSULT TO GENERAL SURGERY OFFICE/OUTPATIENT NEW HIGH MDM 60 MINUTES Alexus Mendez APRN.SANFORIZING MACHINE OPERATOR [address] [place] [address] Referral ID Status Reason Start Date Expiration Date V isits Requested Visits Authorized [id number] Closed PCP Requested Referral 11/08/2023 11/07/2024 1 [...] Care Teams (unrecognized sec tion and content) Clinical Outcomes Manager Relationship Specialty Start Date End Date Aditya Davis PA-C [address] [place], [place] [address] PCP - General Family Practice 09/24/17 Lee Chacon [address] [place] [address] Cardiology 05/16/17 Rigoberto Gould MD [address] [place] [address] Home Care Physician Family Practice 04/08/19 Clinical Outcomes Manager Relationship Specialty Start Date End Date Aditya Davis PA-C [address] [facility] [place] [address] PCP - General Family Practice 09/24/17 Lee Chacon [address] [place] [address] Cardiology 05/16/17 Rigoberto Gould MD [address] [facility] [place] [address] Home Care Physician Family Practice 04/08/19 Clinical Outcomes Manager Relationship Specialty Start Date End Date Aditya Davis PA-C [address] [facility] [place] [address] PCP - General Family Practice 09/24/17 Lee Chacon [address] [place] [address] Cardiology 05/16/17 Rigoberto Gould MD [address] [facility] [place] [address] Home Care Physician Family Practice 04/08/19 Clinical Outcomes Manager Relationship Specialty Start Date End Date Rigoberto Gould MD [address] [facility] [address] [place] [address] PCP - General Family Medicine 03/06/22 Clinical Outcomes Manager Relationship Specialty Start Date End Date Aditya Davis PA-C [address] [facility] [place] [address] PCP - General Family Practice 09/24/17 Lee Chacon [address] [facility] [address] [place] [address] Cardiology 05/16/17 Rigoberto Gould MD [address] [facility] [place] [address] Home Care Physician Family Practice 04/08/19 Clinical Outcomes Manager Relationship Specialty Start Date End Date Aditya Davis PA-C [address] [facility] [place] [address] PCP - General Family Medicine 09/24/17 Lee Chacon [address] [place] [address] Cardiology 05/16/17 Rigoberto Gould MD [address] [facility] [place] [address] Home Care Provider Family Medicine 04/08/19 Clinical Outcomes Manager Relationship Specialty Start Date End Date Aditya Davis PA-C [address] [facility] [place] [address] PCP - General Family Medicine 09/24/17 Lee Chacon [address] [place] [address] Cardiology 05/16/17 Rigoberto Gould MD [address] [facility] [place] [address] Home Care Provider Family Medicine 04/08/19 Clinical Outcomes Manager Relationship Specialty Start Date End Date Aditya Davis PA-C [address] [facility] [place] [address] PCP - General Family Medicine 09/24/17 Lee Chacon [address] [place] [address] Cardiology 05/16/17 Rigoberto Gould MD [address] [facility] [place] [address] Home Care Provider Family Medicine 04/08/19 Clinical Outcomes Manager Relationship Specialty Start Date End Date Aditya Davis PA-C [address] [facility] [place] [address] PCP - General Family Medicine 09/24/17 Lee Chacon [address] [place] [address] Cardiology 05/16/17 Rigoberto Gould MD [address] [facility] [place] [address] Home Care Provider Family Medicine 04/08/19 Clinical Outcomes Manager Relationship Specialty Start Date End Date Aditya Davis PA-C [address] [facility] [place] [address] PCP - General Family Medicine 09/24/17 Lee Chacon [address] [place] [address] Cardiology 05/16/17 Rigoberto Gould MD [address] [facility] [place] [address] Home Care Provider Family Medicine 04/08/19 Clinical Outcomes Manager Relationship Specialty Start Date End Date Aditya Davis PA-C [address] [facility] [place] [address] PCP - General Family Medicine 09/24/17 Lee Chacon [address] [place] [address] Cardiology 05/16/17 Rigoberto Gould MD [address] [facility] [place] [address] Home Care Provider Family Medicine 04/08/19 Clinical Outcomes Manager Relationship Specialty Start Date End Date Aditya Davis PA-C [address] [facility] [place] [address] PCP - General Family Medicine 09/24/17 Lee Chacon [address] [place] [address] Cardiology 05/16/17 Rigoberto Gould MD [address] [facility] [place] [address] Home Care Provider Family Medicine 04/08/19 Clinical Outcomes Manager Relationship Specialty Start Date End Date Rigoberto Gould MD [address] [facility] [place] [address] PCP - General Family Medicine 07/31/22 Lee Chacon [address] [place] [address] Cardiology 05/16/17 Rigoberto Gould MD [address] [facility] [place] [address] Home Care Provider Family Medicine 04/08/19 Clinical Outcomes Manager Relationship Specialty Start Date End Date Aditya Davis PA-C [address] [facility] [place] [address] PCP - General Family Medicine 09/24/17 07/30/22 Rigoberto Gould MD [address] [facility] [place] [address] PCP - General Family Medicine 07/31/22 Lee Chacon [address] [place] [address] Cardiology 05/16/17 Rigoberto Gould MD [address] [facility] [place] [address] Home Care Provider Family Medicine 04/08/19 Clinical Outcomes Manager Relationship Specialty Start Date End Date Aditya Davis PA-C [address] [facility] [place] [address] PCP - General Family Medicine 09/24/17 07/30/22 Rigoberto Gould MD [address] [facility] [place] [address] PCP - General Family Medicine 07/31/22 Lee Chacon [address] [place] [address] Cardiology 05/16/17 Rigoberto Gould MD [address] [facility] [place] [address] Home Care Provider Family Medicine 04/08/19 Clinical Outcomes Manager Relationship Specialty Start Date End Date Rigoberto Gould MD [address] [facility] [place] [address] PCP - General Family Medicine 07/31/22 Lee Chacon [address] [place] [address] Cardiology 05/16/17 Rigoberto Gould MD [address] [facility] [place] [address] Home Care Provider Family Medicine 04/08/19 Clinical Outcomes Manager Relationship Specialty Start Date End Date Rigoberto Gould MD [address] [facility] [place] [address] PCP - General Family Medicine 07/31/22 Lee Chacon [address] [place] [address] Cardiology 05/16/17 Rigoberto Gould MD [address] [facility] [place] [address] Home Care Provider Family Medicine 04/08/19 Clinical Outcomes Manager Relationship Specialty Start Date End Date Rigoberto Gould MD [address] [facility] [place] [address] PCP - General Family Medicine 07/31/22 Lee Chacon [address] [place] [address] Cardiology 05/16/17 Rigoberto Gould MD [address] [facility] [place] [address] Home Care Provider Family Medicine 04/08/19 Clinical Outcomes Manager Relationship Specialty Start Date End Date Rigoberto Gould MD [address] [facility] [place] [address] PCP - General Family Medicine 07/31/22 Lee Chacon MD [address] [place] [address] Cardiology 05/16/17 Rigoberto Gould MD [address] [facility] [place] [address] Home Care Provider Family Medicine 04/08/19 Clinical Outcomes Manager Relationship Specialty Start Date End Date Rigoberto Gould MD [address] [facility] [place] [address] PCP - General Family Medicine 07/31/22 Lee Chacon MD [address] [place] [address] Cardiology 05/16/17 Rigoberto Gould MD [address] [place] [address] Home Care Provider Family Medicine 04/08/19 Clinical Outcomes Manager Relationship Specialty Start Date End Date Rigoberto Gould MD [address] [place] [address] PCP - General Family Medicine 07/31/22 Lee Chacon MD [address] [place] [address] Cardiology 05/16/17 Rigoberto Gould MD [address] [place] [address] Home Care Provider Family Medicine 04/08/19 Clinical Outcomes Manager Relationship Specialty Start Date End Date Rigoberto Gould MD [address] [place] [address] PCP - General Family Medicine 07/31/22 Lee Chacon MD [address] [place] [address] Cardiology 05/16/17 Rigoberto Gould MD [address] [place] [address] Home Care Provider Family Medicine 04/08/19 Clinical Outcomes Manager Relationship Specialty Start Date End Date Rigoberto Gould MD [address] [place] [address] PCP - General Family Medicine 07/31/22 Lee Chacon MD [address] [place] [address] Cardiology 05/16/17 Rigoberto Gould MD [address] [facility] [place] [address] Home Care Provider Family Medicine 04/08/19 Clinical Outcomes Manager Relationship Specialty Start Date End Date Rigoberto Gould MD [address] [place] [address] PCP - General Family Medicine 07/31/22 Lee Chacon MD [address] [facility] [address] [address] Cardiology 05/16/17 Rigoberto Gould MD [address] [place] [address] Home Care Provider Family Medicine 04/08/19 Clinical Outcomes Manager Relationship Specialty Start Date End Date Rigoberto Gould MD [address] [place] [address] PCP - General Family Medicine 07/31/22 Lee Chacon MD [address] [facility] [address] [place] [address] Cardiology 05/16/17 Rigoberto Gould MD [address] [place] [address] Home Care Provider Family Medicine 04/08/19 Clinical Outcomes Manager Relationship Specialty Start Date End Date Rigoberto Gould MD [address] [place] [address] PCP - General Family Medicine 07/31/22 Lee Chacon MD [address] [place] [address] Cardiology 05/16/17 Rigoberto Gould MD [address] [place] [address] Home Care Provider Family Medicine 04/08/19 Clinical Outcomes Manager Relationship Specialty Start Date End Date Rigoberto Gould MD [address] [place] [address] PCP - General Family Medicine 07/31/22 Lee Chacon MD [address] [place] [address] Cardiology 05/16/17 Rigoberto Gould MD [address] [place] [address] Home Care Provider Family Medicine 04/08/19 Clinical Outcomes Manager Relationship Specialty Start Date End Date Rigoberto Gould MD [address] [place] [address] PCP - General Family Medicine 07/31/22 Lee Chacon MD [address] [address] Cardiology 05/16/17 Rigoberto Gould MD [address] [place] [address] Home Care Provider Family Medicine 04/08/19 Clinical Outcomes Manager Relationship Specialty Start Date End Date Rigoberto Gould MD [address] [place] [address] PCP - General Family Medicine 07/31/22 Lee Chacon MD [address] [place] [address] Cardiology 05/16/17 Rigoberto Gould MD [address] [facility] [place] [address] Home Care Provider Family Medicine 04/08/19 Clinical Outcomes Manager Relationship Specialty Start Date End Date Rigoberto Gould MD [address] [facility] [place] [address] PCP - General Family Medicine 07/31/22 Lee Chacon MD [address] [place] [address] Cardiology 05/16/17 Rigoberto Gould MD [address] [facility] [place] [address] Home Care Provider Family Medicine 04/08/19 Clinical Outcomes Manager Relationship Specialty Start Date End Date Rigoberto Gould MD [address] [facility] [place] [address] PCP - General Family Medicine 07/31/22 Lee Chacon MD [address] [place] [address] Cardiology 05/16/17 Rigoberto Gould MD [address] [facility] [place] [address] Home Care Provider Family Medicine 04/08/19 Clinical Outcomes Manager Relationship Specialty Start Date End Date Rigoberto Gould MD [address] [facility] [place] [address] PCP - General Family Medicine 07/31/22 Lee Chacon MD [address] [place] [address] Cardiology 05/16/17 Rigoberto Gould MD [address] [facility] [place] [address] Home Care Provider Family Medicine 04/08/19 Clinical Outcomes Manager Relationship Specialty Start Date End Date Rigoberto Gould MD [address] [facility] [place] [address] PCP - General Family Medicine 07/31/22 Lee Chacon MD [address] [place] [address] Cardiology 05/16/17 Rigoberto Gould MD [address] [facility] [place] [address] Home Care Provider Family Medicine 04/08/19 Clinical Outcomes Manager Relationship Specialty Start Date End Date Rigoberto Gould MD [address] [facility] [place] [address] PCP - General Family Medicine 07/31/22 Lee Chacon MD [address] [place] [address] Cardiology 05/16/17 Rigoberto Gould MD [address] [facility] [place] [address] Home Care Provider Family Medicine 04/08/19 Clinical Outcomes Manager Relationship Specialty Start Date End Date Rigoberto Gould MD [address] [facility] [place] [address] PCP - General Family Medicine 07/31/22 Lee Chacon MD [address] [place] [address] Cardiology 05/16/17 Rigoberto Gould MD [address] [facility] [place] [address] Home Care Provider Family Medicine 04/08/19 Clinical Outcomes Manager Relationship Specialty Start Date End Date Rigoberto Gould MD [address] [facility] [place] [address] PCP - General Family Medicine 07/31/22 Lee Chacon MD [address] [place] [address] Cardiology 05/16/17 Rigoberto Gould MD [address] [facility] [place] [address] Home Care Provider Family Medicine 04/08/19 Clinical Outcomes Manager Relationship Specialty Start Date End Date Rigoberto Gould MD [address] [facility] [place] [address] PCP - General Family Medicine 07/31/22 Lee Chacon MD [address] [place] [address] Cardiology 05/16/17 Rigoberto Gould MD [address] [facility] [place] [address] Home Care Provider Family Medicine 04/08/19 Clinical Outcomes Manager Relationship Specialty Start Date End Date Rigoberto Gould MD [address] [facility] [place] [address] PCP - General Family Medicine 07/31/22 Lee Chacon MD [address] [place] [address] Cardiology 05/16/17 Rigoberto Gould MD [address] [facility] [place] [address] Home Care Provider Family Medicine 04/08/19 Clinical Outcomes Manager Relationship Specialty Start Date End Date Rigoberto Gould MD [address] [facility] [place] [address] PCP - General Family Medicine 07/31/22 Lee Chacon MD [address] [place] [address] Cardiology 05/16/17 Rigoberto Gould MD [address] [facility] [place] [address] Home Care Provider Family Medicine 04/08/19 Clinical Outcomes Manager Relationship Specialty Start Date End Date Rigoberto Gould MD [address] [facility] [place] [address] PCP - General Family Medicine 07/31/22 Lee Chacon MD [address] [place] [address] Cardiology 05/16/17 Rigoberto Gould MD [address] [place] [address] Home Care Provider Family Medicine 04/08/19 Cristina Zamudio, ENTRY LEVEL STAFF ACCOUNTANT.THEATRICAL PERFORMER [address] [place] [address] Material Planning Analyst Family [facility] 08/04/24 Alexus Mendez ENTRY LEVEL STAFF ACCOUNTANT.THEATRICAL PERFORMER [address] [place] [address] [facility]/04/24 Clinical Outcomes Manager Relationship Specialty Start Date End Date Rigoberto Gould MD [address] [place] [address] PCP - General Family Medicine 07/31/22 Lee Chacon MD [address] [address] Cardiology 05/16/17 Rigoberto Gould MD [address] [place] [address] Home Care Provider Family Medicine 04/08/19 Cristina Zamudio, ENTRY LEVEL STAFF ACCOUNTANT.THEATRICAL PERFORMER [address] [place] [address] Material Planning Analyst Family [facility] 08/04/24 Alexus Mendez ENTRY LEVEL STAFF ACCOUNTANT.THEATRICAL PERFORMER [address] [place] [address] Material Planning Analyst Family [facility] 08/04/24 Clinical Outcomes Manager Relationship Specialty Start Date End Date Rigoberto Gould MD [address] [facility] [place] [address] PCP - General Family Medicine 07/31/22 Lee Chacon MD [address] [place] [address] Cardiology 05/16/17 Rigoberto Gould MD [address] [facility] [place] [address] Home Care Provider Family Medicine 04/08/19 Cristina Zamudio APRN.THEATRICAL PERFORMER [address] [facility] [place] [address] Material Planning Analyst Family Medicine 08/04/24 Alexus Mendez APRN.THEATRICAL PERFORMER [address] [facility] [place] [address] Material Planning Analyst Family Medicine 08/04/24 Clinical Outcomes Manager Relationship Specialty Start Date End Date Rigoberto Gould MD [address] [facility] [place] [address] PCP - General Family Medicine 07/31/22 Lee Chacon MD [address] [place] [address] Cardiology 05/16/17 Rigoberto Gould MD [address] [facility] [place] [address] Home Care Provider Family Medicine 04/08/19 Cristina Zamudio APRN.THEATRICAL PERFORMER [address] [facility] [place] [address] Material Planning Analyst Family [facility] 08/04/24 Alexus Mendez ENTRY LEVEL STAFF ACCOUNTANT.THEATRICAL PERFORMER [address] [facility] [place] [address] [facility] 08/04/24 Clinical Outcomes Manager Relationship Specialty Start Date End Date Rigoberto Gould MD [address] [facility] [place] [address] PCP - General Family Medicine 07/31/22 Lee Chacon MD [address] [place] [address] Cardiology 05/16/17 Rigoberto Gould MD [address] [facility] [place] [address] Home Care Provider Family Medicine 04/08/19 Cristina Zamudio, ENTRY LEVEL STAFF ACCOUNTANT.THEATRICAL PERFORMER [address] [facility] [place] [address] [facility] 08/04/24 Alexus Mendez ENTRY LEVEL STAFF ACCOUNTANT.THEATRICAL PERFORMER [address] [facility] [place] [address] [facility] 08/04/24 Clinical Outcomes Manager Relationship Specialty Start Date End Date Rigoberto Gould MD [address] [facility] [place] [address] PCP - General Family Medicine 07/31/22 Lee Chacon MD [address] [place] [address] Cardiology 05/16/17 Rigoberto oGuld MD [address] [facility] [place] [address] Home Care Provider Family Medicine 04/08/19 Cristina Zamudio APRN.THEATRICAL PERFORMER [address] [facility] [address] Material Planning Analyst Family Medicine 08/04/24 Alexus Mendez APRN.THEATRICAL PERFORMER [address] [facility] [place] [address] Material Planning Analyst Family Medicine 08/04/24 Clinical Outcomes Manager Relationship Specialty Start Date End Date Rigoberto Gould MD [address] [facility] [place] [address] PCP - General Family Medicine 07/31/22 [place] [address] [place] [address], [place] [address] Cardiology 05/16/17 Rigoberto Gould MD [address] [facility] [place] [address] Home Care Provider Family Medicine 04/08/19 Cristina Zamudio APRN.THEATRICAL PERFORMER [address] [facility] [place] [address] Material Planning Analyst Family Medicine 08/04/24 Alexus Mendez APRN.THEATRICAL PERFORMER [address] [facility] [place] [address] Material Planning Analyst Family [facility] 08/04/24 Clinical Outcomes Manager Relationship Specialty Start Date End Date Rigoberto Gould MD [address] [facility] [place] [address] PCP - General Family Medicine 07/31/22 Lee Chacon MD [address] [place] [address] Cardiology 05/16/17 Rigoberto Gould MD [address] [facility] [place] [address] Home Care Provider Family Medicine 04/08/19 Cristina Zamudio APRN.THEATRICAL PERFORMER [address] [facility] [place] [address] [facility] 08/04/24 Alexus Mendez APRN.THEATRICAL PERFORMER [address] [facility] [place] [address] [facility] 08/04/24 Clinical Outcomes Manager Relationship Specialty Start Date End Date Rigoberto Gould MD [address] [facility] [place] [address] PCP - General Family Medicine 07/31/22 Lee Chacon MD [address] [place] [address] Cardiology 05/16/17 Rigoberto Gould MD [address] [facility] [place] [address] Home Care Provider Family Medicine 04/08/19 Cristina Zamudio APRN.THEATRICAL PERFORMER [address] [facility] [place] [address] Material Planning Analyst Family [facility] 08/04/24 Alexus Mendez APRN.THEATRICAL PERFORMER [address] [facility] [place] [address] Material Planning Analyst Family [facility] 08/04/24 Clinical Outcomes Manager Relationship Specialty Start Date End Date Rigoberto Gould MD [address] [facility] [place] [address] PCP - General Family Medicine 07/31/22 Lee Chacon MD [address] [place] [address] Cardiology 05/16/17 Rigoberto Gould MD [address] [place] [address] Home Care Provider Family Medicine 04/08/19 Cristina Zamudio, ENTRY LEVEL STAFF ACCOUNTANT.THEATRICAL PERFORMER [address] [facility] [place] [address] Material Planning Analyst Family [facility] 08/04/24 Alxeus Mendez, ENTRY LEVEL STAFF ACCOUNTANT.THEATRICAL PERFORMER [address] [facility] [place] [address] [facility] 08/04/24 Clinical Outcomes Manager Relationship Specialty Start Date End Date Rigoberto Gould MD [address] [facility] [place] [address] PCP - General Family Medicine 07/31/22 Lee Chacon MD [address] [place] [address] Cardiology 05/16/17 Rigoberto Gould MD [address] [facility] [place] [address] Home Care Provider Family Medicine 04/08/19 Cristina Zamudio ENTRY LEVEL STAFF ACCOUNTANT.THEATRICAL PERFORMER [address] [facility] [place] [address] Material Planning Analyst Family [facility] 08/04/24 Alexus Mendez ENTRY LEVEL STAFF ACCOUNTANT.THEATRICAL PERFORMER [address] [facility] [place] [address] Material Planning Analyst Family [facility] 08/04/24 Clinical Outcomes Manager Relationship Specialty Start Date End Date Rigoberto Gould MD [address] [place] [address] PCP - General Family Medicine 07/31/22 [place] [address] [place] [address] Cardiology 05/16/17 Rigoberto Gould MD [address] [place] [address] Home Care Provider Family Medicine 04/08/19 Cristina Zamudio APRN.THEATRICAL PERFORMER [address] [facility] [place] [address] Material Planning Analyst Family Medicine 08/04/24 Alexus Mendez ENTRY LEVEL STAFF ACCOUNTANT.THEATRICAL PERFORMER [address] [facility] [place] [address] Material Planning Analyst Family [facility] 08/04/24 Clinical Outcomes Manager Relationship Specialty Start Date End Date Rigoberto Gould MD [address] [facility] [place] [address] PCP - General Family Medicine 07/31/22 Lee Chacon MD [address] [place] [address] Cardiology 05/16/17 Rigoberto Gould MD [address] [facility] [place] [address] Home Care Provider Family Medicine 04/08/19 Cristina Zamudio APRN.THEATRICAL PERFORMER [address] [facility] [place] [address] Material Planning Analyst Family Medicine 08/04/24 Alexus Mendez APRN.THEATRICAL PERFORMER [address] [facility] [place] [address] Material Planning Analyst Family Medicine 08/04/24 11/14/24 Clinical Outcomes Manager Relationship Specialty Start Date End Date Rigoberto Gould MD [address] [facility] [place] [address] PCP - General Family Medicine 07/31/22 Lee Chacon MD [address] [place] [address] Cardiology 05/16/17 Rigoberto Gould MD [address] [facility] [place] [address] Home Care Provider Family Medicine 04/08/19 Cristina Zamudio APRN.THEATRICAL PERFORMER [address] [facility] [address] Material Planning Analyst Family Medicine 08/04/24 Alexus Mendez APRN.THEATRICAL PERFORMER [address] [facility] [place] [address] [facility] 08/04/24 Clinical Outcomes Manager Relationship Specialty Start Date End Date Rigoberto Gould MD [address] [place] [address] PCP - General Family Medicine 07/31/22 Lee Chacon MD [address] [place] [address] Cardiology 05/16/17 Rigoberto Gould MD [address] [facility] [place] [address] Home Care Provider Family Medicine 04/08/19 Cristina Zamudio APRN.THEATRICAL PERFORMER [address] [facility] [place] [address] [facility] 08/04/24 Alexus Mendez ENTRY LEVEL STAFF ACCOUNTANT.THEATRICAL PERFORMER [address] [facility] [place] [address] [facility] 08/04/24 Clinical Outcomes Manager Relationship Specialty Start Date End Date Rigoberto Gould MD [address] [place] [address] PCP - General Family Medicine 07/31/22 Lee Chacon MD [address] [place] [address] Cardiology 05/16/17 Rigoberto Gould MD [address] [place] [address] Home Care Provider Family Medicine 04/08/19 Cristina Zamudio APRN.THEATRICAL PERFORMER [address] [facility] [place] [address] Material Planning Analyst Family [facility] 08/04/24 Alexus Mendez APRN.THEATRICAL PERFORMER [address] [facility] [place] [address] Material Planning Analyst Family [facility] 08/04/24 Clinical Outcomes Manager Relationship Specialty Start Date End Date Rigoberto Gould MD [address] [facility] [place] [address] PCP - General Family Medicine 07/31/22 Lee Chacon MD [address], [place] [address] Cardiology 05/16/17 Rigoberto Gould MD [address] [facility] [place] [address] Home Care Provider Family Medicine 04/08/19 Cristina Zamudio APRN.THEATRICAL PERFORMER [address] [facility] [place] [address] Material Planning Analyst Family [facility] 08/04/24 Alexus Mendez ENTRY LEVEL STAFF ACCOUNTANT.THEATRICAL PERFORMER [address] [facility] [place] [address] Material Planning Analyst Family [facility] 08/04/24 Team Status: Active Member Role Status [...] Attending Provider Active Start: December 11, 2024 Clinical Outcomes Manager Relationship Specialty Start Date End Date Rigoberto Gould MD [address] [place] [address] PCP - General Family Medicine 07/31/22 Lee Chacon MD [address] [address] Cardiology 05/16/17 Rigoberto Gould MD [address] [place] [address] Home Care Provider Family Medicine 04/08/19 Cristina Zamudio, [place].THEATRICAL PERFORMER [address] [place], [place] [address] Material Planning Analyst Family Medicine 08/04/24 Alexus Mendez ENTRY LEVEL STAFF ACCOUNTANT.THEATRICAL PERFORMER [address] [place], [place] [address] Material Planning Analyst Family Medicine 08/04/24 Team Status: Inactive [...] Provider Active Sta rt: December 13, 2024 Clinical Outcomes Manager Relationship Specialty Start Date End Date Rigoberto Gould MD [address] [place], [place] [address] PCP - General Family Medicine 07/31/22 Lee Chacon MD [address] [id number] Cardiology 05/16/17 Rigoberto Gould MD [address] [place], [place] [address] Home Care Provider Family Medicine 04/08/19 Cristina Zamudio APRN.THEATRICAL PERFORMER [address] [place] [address] [facility] 08/04/24 Alexus Mendez APRN.THEATRICAL PERFORMER [address] [facility] [address] [facility] 08/04/24 Team Status: Inactive Member Role Status [...] BE BASED ON THE PRIMARY CLINICAL RECORDS. [facility]. provides no warranty or guarantee of the accuracy or completeness of information in this document.
[2025-01-29] MEDS: Lactated Ringers 1,000 ML 999 ML IV (03:54)
[2025-01-29] MEDS: Norepinephrine 8 MG in 0.9% Normal Saline (250mL Bag) 242 ML 9.4 MG CONT INF (04:02)
[2025-01-29 04:03] LABS: Bedside Glucose 117 mg/dL (74-106)
--- NOTE | 2025-01-29 04:03 | NURSING ---
At 02:45 this RN was in pt room alongside Tierra MEDICAL TRANSCRIBER when the pts heartrate dropped. The BP dropped further, eyes rolled in back of head, made snoring sounds while awake. Ativan given at 03:00 for possible seizure-like activity. notified, who then ordered atropine to be given at 03:15. Pt sent to ICU, and notified.
--- NOTE | 2025-01-29 04:53 | PCM.DEATH ---
Preliminary Cause of Preliminary Cause of Preliminary Cause of : (1) Uncertain exact cause of primarily, notable co-morbidities with onset cardiac arrhythmia with significant episodes of bradycardia with significant hypotension (2) Possibility of underlying infectious etiology of unclear source given mild leukocytosis with left shift, hypotension, elevated procalcitonin (3) Recent diagnosis suspected GI bleed with stable hemoglobin (4) Intractable back pain, bilateral hip plain with recently minimally displaced fracture of the left sacrum and questionably minimally displaced fracture of the left superior pubic rami as well as compression fracture T9 vertebrae following recent falls Date of Admission: 01/28/25 Date of : 01/29/25 (Time of : 445) Principle Diagnosis (1) Uncertain exact cause of primarily, notable co-morbidities with onset cardiac arrhythmia with significant episodes of bradycardia with significant hypotension (2) Possibility of underlying infectious etiology of unclear source given mild leukocytosis with left shift, hypotension, elevated procalcitonin (3) Recent diagnosis suspected GI bleed with stable hemoglobin (4) Intractable back pain, bilateral hip plain with recently minimally displaced fracture of the left sacrum and questionably minimally displaced fracture of the left superior pubic rami as well as compression fracture T9 vertebrae following recent falls (5) HFrEF/ischemic cardiomyopathy (6) ESRD on HD (7) CAD s/p CABG (8) PAF (9) Pulmonary HTN (10) Valvular Heart Disease (11) HTN (12) HLD (13) Former tobacco use Problem List: Active and Suspected Problems (Updated 01/28/25 @ 16:[address] Rafa Felder MD) Altered mental status (Acute) Hospital Course The patient is a 69 y/o M w/ PMHx: Diabetes mellitus type II, HTN, HLD, HFrEF/ischemic cardiomyopathy, CAD, Pulmonary HTN, Ankylosing spondylitis, GERD w/ Hx GI bleed, Hx C. difficile diarrhea/colitis, ESRD on HD, Valvular Heart Disease, CAD status post CABG, Former tobacco use, initially presenting earlier in the day on 01/28/2025 secondary to history of concern for dark appearing stools with history of peptic ulcer disease with lower abdominal discomfort and distention complicated by recent history of significant falls and pelvic as well as vertebral fractures on a significant amount of pain medications with positive guaiac but stable hemoglobin with trend 13.4-> 14.6-> 14.[address] abdomen and pelvis with no significant acute findings with noted cholelithiasis, moderate ascites, stable splenomegaly, diverticulosis, small midline ventral hernia, anterior wedging of T9 vertebra, bilateral pleural effusions with moderate right and trace left, evidence of right hip arthroplasty, cardiac enlargement with initial hypotension therefore patient administered judicious IV fluids BP improved therefore patient was transition back to correction facility unfortunately returning again later in the evening 01/28/2025 secondary to nursing facility stating that he was staring off into space for for a lengthy amount of time possibly 5 to 10 minutes in addition to possibly snoring although from description this is what was witnessed in the ED earlier and patient was alert during these episodes and aware of them and when discussed he noted his pain was high at those times in addition to concern for lower blood pressure as patient had not received his midodrine prompting skilled facility to return him to the ED for further evaluation evening of 01/28/25. From discussion with correction and episode at the skilled facility with significantly longer and this was different than previously. Patient continued to note ongoing pain to the lumbar spine and bilateral hip regions. Nursing facility did not give him his midodrine per patient and report. Repeat ED work-up upon his 2nd arrival included initially BP 75/54 with improvement following midodrine administration to 92/76-> 106/88, heart rate 89, respiratory rate 17, 96% room air, T97.8, CBC with WBC 11.4, hemoglobin stable at 14.8, platelet 93 stable and similar to previous with left shift. Patient was initially admitted to PCU with plan for further assessment for possible seizure, placed on seizure precautions with planned EEG, MRI brain and neurology assessment, continued Hgb trending with hold on NOAC and to be cautious given uncertain if underlying infectious cause for his hypotension thus CXR, Bld Cx, procalcitonin obtained. Despite continued judicious IVFs he continued to have intermittent hypotension, only transiently improving with midodrine. His procalcitonin was notably elevated despite no fever and WBC not markedly elevated but to be cautious he was started on IV zosyn and vanc to be cautious, pending Bld Cx, CXR obtained w/ cardiomegaly, increased interstitial markings, and perihilar fullness. Patient was also noted to continue to have episodes of staring off/unresponsive with associated bradycardia which had not occurred prior with HR going down into the 30s and then returning back into normal range. Patient was then transitioned to the ICU, consulted Cardiology and ICU team and discussed his presentation, ordered atropine, administered lower dose of IVF sepsis protocol given high risk overload potential, ordered LA/respiratory panel. Discussed status with who noted recently some urine output thus requested also UA/UCx and butler as well as resp panel. Patient upon transition to ICU continued to deteriorate with recurring episodes of starting off combined with bradycardia and gasping. He was eventually started on NEP given persistent hypotension. Given worsening status patient contacted with update that the belief of his eminent to present to the hospital. Patient passed 01/29/2025 at 0446.
--- NOTE | 2025-01-29 06:37 | NURSING ---
0340- pt arrived to ICU from PCU. Pt restless and intermittently responsive to voice. Pt BP 49/38, levo ordered by Dr. Granados and pharmacy called for stat bag. Pt becoming hypoxic and started on 4L, quickly transitioned to nonrebreather. Patient's , Yun, called and informed of patient's deterioration and requested to come in by Pearl Cabrales RN. LR bolus hung and patient placed in Trendelenburg position. Pt intermittently responsive to staff, having periods of spacing out and guppy breathing while becoming bradycardic. Dr. Granados aware/ notified. 0- Dr. Granados notified that patient continues to become bradycardic then tachycardic, requested this RN to call Dr. Claire from cardiology to update and ask about external pacing. Levo hung at 0402. PRN atropine brought to bedside. Dr. Claire paged at 0406 by this RN and stated that he did not recommended externally pacing patient as his periods of bradycardia weren't prolonged enough and that patient was a DNRCCA DNI. Darwin notified of this. Patient continued to deteriorate despite all measures. 0- patient began to become apneic, Dr. Granados paged and notified. 6- PEA on monitor and patient apneic, x2 nurse verify and TOD 0446. bedside at 0448 and informed by this RN.
--- NOTE | 2025-01-29 10:39 | CASEMGMT ---
Social Work Pt admitted from [facility]. Phone call to admission director at [facility] and left informing of pt's passing earlier this morning. JORGE Wang
== END 2025-01-29 08:30 ==
LOC: ED 23:26 → PCU 23:31 → ICU 01-29 03:33
PROVIDERS: Admitting Provider Family Medicine; Emergency Provider Emergency Medicine; PCP Family Medicine; Visit Provider Family Medicine
DX: R00.1 Bradycardia, unspecified (principal); I13.2 Hypertensive heart and chronic kidney disease with heart failure and with stage 5 chronic kidney disease, or end stage renal disease; N18.6 End stage renal disease; I27.20 Pulmonary hypertension, unspecified; I50.23 Acute on chronic systolic (congestive) heart failure; I48.19 Other persistent atrial fibrillation; R56.9 Unspecified convulsions; E11.22 Type 2 diabetes mellitus with diabetic chronic kidney disease; E11.40 Type 2 diabetes mellitus with diabetic neuropathy, unspecified; Z79.4 Long term (current) use of insulin; I95.9 Hypotension, unspecified; E78.00 Pure hypercholesterolemia, unspecified; Z82.49 Family history of ischemic heart disease and other diseases of the circulatory system; Z87.891 Personal history of nicotine dependence; I25.5 Ischemic cardiomyopathy; M25.552 Pain in left hip; Z99.2 Dependence on renal dialysis; K21.9 Gastro-esophageal reflux disease without esophagitis; M54.50 Low back pain, unspecified; I25.10 Atherosclerotic heart disease of native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 angina pectoris; Z79.01 Long term (current) use of anticoagulants; M25.551 Pain in right hip; Z79.899 Other long term (current) drug therapy; Z91.81 History of falling; R19.5 Other fecal abnormalities; E87.20 Acidosis, unspecified; R41.82 Altered mental status, unspecified; I25.2 Old myocardial infarction; J90 Pleural effusion, not elsewhere classified; K80.20 Calculus of gallbladder without cholecystitis without obstruction; Z95.1 Presence of aortocoronary bypass graft; Z87.81 Personal history of (healed) traumatic fracture
CPT/HCPCS: 71045; 74176; 80053; 82274; 82962; 83605; 83735; 84100; 84145; 85018; 85025; 86850; 86870; 86900; 86901; 86902; 86905; 87040; 93005; 96365; 96366; 96367; 96368; 96375; 99285; A4216; J2405